=== PATIENT | female | born 1950 | race Caucasian/White ===

== ENCOUNTER 2017-12-18 06:00 | Outpatient (RCR) | payer MEDICARE, OTHER, SELFPAY | END 2017-12-19 23:59 | LOC: CR 06:00 | PROVIDERS: Family Provider Student in an Organized Health Care Education/Training Program; PCP Student in an Organized Health Care Education/Training Program; Visit Provider Student in an Organized Health Care Education/Training Program | DX: Z00.00 Encounter for general adult medical examination without abnormal findings (principal) ==

== ENCOUNTER 2018-01-15 06:00 | Outpatient (RCR) | payer MEDICARE, OTHER, SELFPAY | END 2018-01-16 23:59 | LOC: CR 06:00 | PROVIDERS: Family Provider Student in an Organized Health Care Education/Training Program; PCP Student in an Organized Health Care Education/Training Program; Visit Provider Student in an Organized Health Care Education/Training Program | DX: Z00.00 Encounter for general adult medical examination without abnormal findings (principal) ==

== ENCOUNTER → 2018-01-22 08:49 | Outpatient (CLI) | payer MEDICARE, OTHER, SELFPAY ==
[2018-01-22 09:51] LABS: AST(SGOT) 21 U/L (15-37); Alanine Aminotransfer ALT/SGPT 23 U/L (13-56); Albumin, Serum 3.6 g/dL (3.2-5.0); Alkaline Phosphatase 50 U/L (45-117); Bilirubin, Direct 0.11 mg/dL (0.00-0.30); Cholesterol 197 mg/dL (200); Globulin 3.5 g/dL (2.2-4.2); High Density Lipoprotein 58 mg/dL; Protein, Total 7.1 g/dL (6.4-8.2); Triglycerides 272 mg/dL; Very Low Density Lipoprotein 54 mg/dL (5-40)
== END ==
PROVIDERS: Family Provider Student in an Organized Health Care Education/Training Program; PCP Student in an Organized Health Care Education/Training Program; Visit Provider Internal Medicine Cardiovascular Disease
DX: I25.10 Atherosclerotic heart disease of native coronary artery without angina pectoris (principal); E78.5 Hyperlipidemia, unspecified
CPT/HCPCS: 36415; 80061; 80076

== ENCOUNTER → 2018-01-30 13:45 | Outpatient (CLI) | payer MEDICARE, OTHER, SELFPAY ==
--- NOTE | 2018-01-30 13:46 | ECHOD_ITS ---
Reason For Study: CAD/ASHD Procedure This was a 2D Doppler, Color Flow transthoracic echocardiogram. Exam performed in department. Left Ventricle Normal size and thickness. The estimated ejection fraction is 65 %. Stage 1 diastolic dysfunction. No regional wall motion abnormalities noted. Right Ventricle Normal size and thickness. Normal systolic function. Atria The left atrium is mildly enlarged. Normal right atrium. Normal atrial septum. Mitral Valve The mitral valve is structurally normal. No prolapse or stenosis seen. Mild mitral annular calcification extending into the posterior leaflet. Tricuspid Valve Normal tricuspid valve. Unable to estimate RV systolic pressure/pulmonary artery pressure due to technically difficult study. Aortic Valve Trisinus/trileaflet aortic valve. Mild focal aortic valve thickening. Pulmonic Valve Normal pulmonic valve. Great Vessels Normal aortic root. Normal arch. Normal inferior vena cava. Inferior vena cava collapse with sniff. Pericardium/Pleural No pericardial effusion. MMode/2D Measurements & Calculations LVIDd: 4.6 cm IVSd: 1.1 cm Ao root diam: 3.2 cm LVIDs: 3.2 cm LVPWd: 1.1 cm LA dimension: 4.8 cm FS: 30.2 % LAV(MOD-bp): 73.3 ml LA A4 area: 21.9 cm2 RA A4 area: 10.8 cm2 LAV(MOD-bp) Indexed: 38.3 ml/m2 LAV(MOD-sp2): 74.2 ml LAV(MOD-sp4): 71.3 ml Time Measurements MV dec time: 0.44 sec Doppler Measurements & Calculations MV E max izaiah: 56.1 cm/sec Lat Peak E' Izaiah: 10.5 cm/sec Med Peak E' Izaiah: 5.8 cm/sec MV A max izaiah: 110.5 cm/sec E/E' lat: 5.4 E/E' med: 9.7 MV E/A: 0.51 Ao V2 max: 170.6 cm/sec LV V1 max: 111.5 cm/sec PA V2 max: 114.6 cm/sec Ao max P.7 mmHg LV V1 max P.0 mmHg Interpretation Summary The estimated ejection fraction is 65 %. Stage 1 diastolic dysfunction. Unable to estimate RV systolic pressure/pulmonary artery pressure due to technically difficult study. The left atrium is mildly enlarged. There is no comparison study available. Ordering Physician: Brandon Ch Referring Physician: Rishi Vasquez Performed By: Joy Orellana, JAMAR, RVT
== END ==
PROVIDERS: Family Provider Student in an Organized Health Care Education/Training Program; PCP Student in an Organized Health Care Education/Training Program; Visit Provider Internal Medicine Cardiovascular Disease
DX: I25.10 Atherosclerotic heart disease of native coronary artery without angina pectoris (principal)
CPT/HCPCS: 93306

== ENCOUNTER 2018-02-14 06:00 | Outpatient (RCR) | payer MEDICARE, OTHER, SELFPAY | END 2018-02-16 23:59 | LOC: CR 06:00 | PROVIDERS: Family Provider Student in an Organized Health Care Education/Training Program; PCP Student in an Organized Health Care Education/Training Program; Visit Provider Student in an Organized Health Care Education/Training Program | DX: Z00.00 Encounter for general adult medical examination without abnormal findings (principal) ==

== ENCOUNTER 2018-03-14 06:00 | Outpatient (RCR) | payer SELFPAY | END 2018-03-18 23:59 | LOC: CR 06:00 | PROVIDERS: Family Provider Student in an Organized Health Care Education/Training Program; PCP Student in an Organized Health Care Education/Training Program; Visit Provider Student in an Organized Health Care Education/Training Program | DX: Z00.00 Encounter for general adult medical examination without abnormal findings (principal) ==

== ENCOUNTER 2018-04-18 06:00 | Outpatient (RCR) | payer SELFPAY | END 2018-04-18 23:59 | LOC: CR 06:00 | PROVIDERS: Family Provider Student in an Organized Health Care Education/Training Program; PCP Student in an Organized Health Care Education/Training Program; Visit Provider Student in an Organized Health Care Education/Training Program | DX: Z00.00 Encounter for general adult medical examination without abnormal findings (principal) ==

== ENCOUNTER 2018-05-16 06:00 | Outpatient (RCR) | payer SELFPAY | END 2018-05-18 23:59 | LOC: CR 06:00 | PROVIDERS: Family Provider Student in an Organized Health Care Education/Training Program; PCP Student in an Organized Health Care Education/Training Program; Visit Provider Student in an Organized Health Care Education/Training Program | DX: Z00.00 Encounter for general adult medical examination without abnormal findings (principal) ==

== ENCOUNTER 2018-06-18 06:00 | Outpatient (RCR) | payer SELFPAY | END 2018-06-18 23:59 | LOC: CR 06:00 | PROVIDERS: Family Provider Student in an Organized Health Care Education/Training Program; PCP Student in an Organized Health Care Education/Training Program; Visit Provider Student in an Organized Health Care Education/Training Program | DX: Z00.00 Encounter for general adult medical examination without abnormal findings (principal) ==

== ENCOUNTER → 2018-07-16 13:25 | Outpatient (CLI) | payer MEDICARE, OTHER, SELFPAY ==
[2018-07-16 16:47] LABS: Absolute Lymphocyte Count 1.03 X10^3/ul (0.83-4.51); Absolute Neutrophil Count 4.3 X10^3/uL (2.0-7.7); Basophil# 0.04 X10^3/uL; Basophil% 0.7 % (0-1); Eosinophil# 0.14 X10^3/uL; Eosinophils% 2.3 % (0-5); Hematocrit 33.7 % (37-47); Hemoglobin 11.1 g/dl (12.0-15.0); Lymphocyte # 1.03 X10^3/ul (4.0); Lymphocyte % 17.1 % (19-41); Mean Corp Hgb Conc 32.9 g/gl (32-36); Mean Corpuscular Hgb 30.8 pg (27.0-32.0); Mean Corpuscular Volume 93.6 fL (81-99); Mean Platelet Vol. 11.9 fl (6.2-12.0); Monocyte# 0.54 X10^3/uL; Neutrophil # 4.26 X10^3/uL (2.7-7.7); Neutrophil % 70.7 % (47-70); Platelet Count 181 K/mm3 (150-450); RBC Distribution Width CV 12.5 % (11.6-14.6); RBC Distribution Width SD 42.8 fl (35.1-43.9)
[2018-07-16 16:50] LABS: POSITIVE COUNT NO; POSITIVE DIFFERENTIAL NO; POSITIVE MORPHOLOGY NO
[2018-07-16 17:04] LABS: Erythrocyte Sedimentation Rate 44 mm/hr (0-30)
[2018-07-16 17:09] LABS: ALB/GLOB Ratio 0.9 RATIO (0.9-2.4); AST(SGOT) 14 U/L (15-37); Alanine Aminotransfer ALT/SGPT 19 U/L (13-56); Albumin, Serum 3.4 g/dL (3.2-5.0); Alkaline Phosphatase 44 U/L (45-117); Anion Gap 13 (5-15); BUN 69 mg/dL (7-18); BUN/Creat Ratio 48.3 RATIO (10-20); Calcium,Total 9.5 mg/dL (8.5-10.1); Chloride 108 mmol/L (98-107); Creatinine, Serum 1.43 mg/dL (0.55-1.02); EST Glomerular Filtration Rate 39 mL/min (>60); Est Glom Filt Rate - Afr Amer 47 mL/min (>60); Globulin 3.7 g/dL (2.2-4.2); Glucose 153 mg/dL (74-106); Potassium 3.8 mmol/L (3.5-5.1); Protein, Total 7.1 g/dL (6.4-8.2); Sodium Level 142 mmol/L (136-145)
== END ==
PROVIDERS: Family Provider Student in an Organized Health Care Education/Training Program; PCP Student in an Organized Health Care Education/Training Program; Visit Provider Podiatrist
DX: L03.90 Cellulitis, unspecified (principal)
CPT/HCPCS: 36415; 80053; 85025; 85652; 86140

== ENCOUNTER → 2018-07-16 18:05 | Outpatient (CLI) | payer MEDICARE, OTHER, SELFPAY ==
[2018-07-16 20:37] LABS: M R Staph aureus DNA By PCR Negative (Negative); Staph aureus DNA By PCR POSITIVE (Negative)
[2018-07-16 20:38] LABS: Probe Check PASS
== END ==
PROVIDERS: Family Provider Student in an Organized Health Care Education/Training Program; PCP Student in an Organized Health Care Education/Training Program; Visit Provider Podiatrist
DX: L97.509 Non-pressure chronic ulcer of other part of unspecified foot with unspecified severity (principal); L03.90 Cellulitis, unspecified
CPT/HCPCS: 36415; 80053; 85025; 85652; 86140; 87070; 87077; 87186; 87205; 87640

== ENCOUNTER 2018-07-18 06:00 | Outpatient (RCR) | payer SELFPAY | END 2018-07-19 23:59 | LOC: CR 06:00 | PROVIDERS: Family Provider Student in an Organized Health Care Education/Training Program; PCP Student in an Organized Health Care Education/Training Program; Visit Provider Student in an Organized Health Care Education/Training Program | DX: Z00.00 Encounter for general adult medical examination without abnormal findings (principal) ==

== ENCOUNTER → 2018-08-02 09:23 | Outpatient (CLI) | payer MEDICARE, OTHER, SELFPAY ==
--- NOTE | 2018-08-02 09:25 | STE_ITS ---
Reason For Study: CHEST PAIN Stress Results Protocol: Avinash Protocol Maximum Predicted HR: 154 bpm Target HR: 131 bpm% Max imum Predicted HR: 85 % DurationHeart Rate Stage (mm:ss) (bpm) BPDos e BASELINE 69 136/76 STAGE 1 3:00 85 153/8110.00 STAGE 2 3:00 12 7 137/8920.00 STAGE 3 1:13 13 1 128/6330.00 RECOVERY 75 128/56 Stress Duration: 7:13 mm:ss Maximum Stress HR: 131 bpm Baseline Echocardiogram Findings The estimated ejection fraction is 65 %. Stress Echo Wall motion Data Resting WMIntermediate WMStress WM Resting Wall Motion Wall Motion Stress No regional wall motion No regional wall motion abnormalities noted. abnormalities noted. EKG Data The baseline ECG displays normal sinus rhythm. The maximum heart rate attained was 137 beats per minute. This was 88% of maximum predicted heart rate. During dobutamine infusion, there were no ST or T wave changes noted to suggest ischemia. No clinical angina was noted. The patient was titrated from 10 mcg to a maximun of 30 mcg of dobutamine during the stress. Interpretation Summary The estimated ejection fraction is 65 %. The patient was titrated from 10 mcg to a maximun of 30 mcg of dobutamine during the stress. Normal, adequate, dobutamine echocardiogram. Negative for ischemia by EKG and echocardiographic criteria. No anginal symptoms noted. Rare PVC noted. Appropriate blood pressure response to dobutamine. Test terminated due to the attainment of target heart rate. No anginal symptoms noted. Final LVEF is 75%. Ordering Physician: Brandon Ch Referring Physician: Brandon Ch Performed By: Joy Orellana, KARTHIKEYANCS, RVT
== END ==
PROVIDERS: Family Provider Student in an Organized Health Care Education/Training Program; PCP Student in an Organized Health Care Education/Training Program; Visit Provider Internal Medicine Cardiovascular Disease
DX: I25.10 Atherosclerotic heart disease of native coronary artery without angina pectoris (principal); I73.9 Peripheral vascular disease, unspecified; E78.5 Hyperlipidemia, unspecified
CPT/HCPCS: 93017; 93350; J7030; A4216

== ENCOUNTER → 2018-08-13 12:49 | Outpatient (CLI) | payer MEDICARE, OTHER, SELFPAY ==
--- NOTE | 2018-08-17 16:44 | LEAS_ITS ---
Arterial Study - Arterial Study Arterial Study: This is a 68-year-old female with a history of diabetes mellitus, hypertension, hyperlipidemia, heart disease, and prior toe amputations. Suspecting the presence of atherosclerotic peripheral arterial occlusive disease, the patient was brought to the noninvasive vascular laboratory at this time for the purpose of bilateral noninvasive lower extremity arterial assessment. Doppler signal assessment was used to evaluate the pulses at ankle level bilaterally. The posterior tibial and dorsalis pedis pulses were biphasic bilaterally. Segmental limb pressures were obtained bilaterally. The right low thigh pressure was measured at 158 mmHg. The right calf pressure was measured at 119 mmHg. The right ankle pressure, as determined by posterior tibial pulse, was measured at 107 mmHg. The right ankle pressure, as determined by dorsalis pedis pulse, was measured at 120 mmHg. The right digital pressure was measured at 79 mmHg. The left low thigh pressure was measured at 151 mmHg. The left calf pressure was measured at 139 mmHg. The left ankle pressure, as determined by posterior tibial pulse, was measured at 196 mmHg. The left ankle pressure, as determined by dorsalis pedis pulse, was measured at 104 mmHg. The left digital pressure was measured at 64 mmHg. Pulse?volume recordings were obtained bilaterally and segmentally. Waveform amplitudes appeared to be satisfactory at all levels bilaterally, but for the left digital level, which was diminished. Resting ankle?brachial indices were calculated bilaterally. The resting right ankle?brachial index was calculated to be 0.84. The resting left ankle?brachial index was calculated to be 1.37. Digital?brachial indices were calculated bilaterally. The right digital- brachial index was calculated to be 0.55. The left digital-brachial index was calculated to be 0.45. Impression: Based upon the findings of this resting noninvasive lower extremity arterial study, there is evidence of mild arterial occlusive disease in the right lower extremity. There is evidence of moderate arterial occlusive disease in the left lower extremity. Biphasic waveforms were noted at ankle level bilaterally. The resting right ankle?brachial index is mildly diminished, as is the right digital-brachial index. On the left, the resting ankle?brachial index is normal, though the left digital-brachial index is moderately diminished. Therefore, there is evidence of moderate impairment of arterial flow at digital level in the left lower extremity. The arterial occlusive disease appears to be multi-segmental bilaterally.
== END ==
PROVIDERS: Family Provider Student in an Organized Health Care Education/Training Program; PCP Student in an Organized Health Care Education/Training Program; Visit Provider Podiatrist
DX: I73.9 Peripheral vascular disease, unspecified (principal); L97.509 Non-pressure chronic ulcer of other part of unspecified foot with unspecified severity
CPT/HCPCS: 93923

== ENCOUNTER 2018-08-15 06:00 | Outpatient (RCR) | payer SELFPAY | END 2018-08-18 23:59 | LOC: CR 06:00 | PROVIDERS: Family Provider Student in an Organized Health Care Education/Training Program; PCP Student in an Organized Health Care Education/Training Program; Visit Provider Student in an Organized Health Care Education/Training Program | DX: Z00.00 Encounter for general adult medical examination without abnormal findings (principal) | CPT/HCPCS: J2405 ==

== ENCOUNTER 2018-08-16 08:25 | Day surgery (SDC) | payer MEDICARE, OTHER, SELFPAY ==
[2018-08-16] VITALS (7 sets, daily range): BP systolic 108–131; BP diastolic 45–57; PULSE 49–64; RESP 12–16; TEMP 36.4–37.2; O2SAT 95–99; BMI 27.4
--- NOTE | 2018-08-16 | AMP_PTH ---
PATIENT: KIMBERLY NEWMAN LOC: [facility] – [place] U#:[id number] AGE/SX: 68/F ROOM: RE08/16/[address]: Dr. Meeta Yoo DPM : 1950 BED: DIS: 08/16/2018 SPEC #: [id number] RECD: 08/16/18 13:17 STATUS: DALJIT REFaustina #: [id number] MARIELLE: 08/16/18 00:[address]: Meeta Yoo DEPT: SURGICAL PATHOLOGY RECD BY: Toni Doe ENTERED: 08/16/18 13:19 SP TYPE: Amputation OTHR DR: Dr. Rishi Vasquez DO Tissues: A - Toe, NOS B - Bone of foot, NOS Procedures: Decalcification bone/plaque Special Stain Group I Surgery Specimen Level III Surgery Specimen Level IV AFB Stain (control) GMS Stain (control) HEADER OPERATION: Amputation toe, fourth metatarsal PRE-OP DIAGNOSIS: Ulcer, fourth toe left foot, osteomyelitis TISSUE SUBMITTED: A - Fourth toe left foot, B - Clearance fragment fourth toe MICROSCOPIC DIAGNOSIS A. Fourth toe left foot, amputation: Focal gangrenous ulceration and associated acute inflammation and abscess formation. Underlying bone with acute osteomyelitis. Special stains for acid fast bacilli and fungi are negative for organisms; matched controls are appropriate. B. Clearance fragment fourth toe: Pieces of bone with reactive changes, mild chronic inflammation and negative for acute osteomyelitis. IVETTE:bubba 08/22/18 MICROSCOPIC DESCRIPTION Slides are reviewed. GROSS DESCRIPTION A - Received in fixative is one container labeled with the patient's name and designated fourth toe left foot. The specimen consists of a portion of toe measuring 2.5 x 1.5 x 1.5 cm. The plantar surface of the toe shows an extensive area of gangrenous ulceration. Only a portion of nail is present. Job Foreman sections are submitted in two cassettes as follows: 1 - ulcerated area, 2 - bone underneath the ulcerated area after decalcification. B - Received in fixative is one container labeled with the patient's name and designated clearance fragment fourth toe. The specimen consists of two pieces of bone measuring 2 x 0.8 x 0.5 cm and 1.5 x 0.7 x 0.5 cm. The entire specimen is submitted in one cassette after decalcification. / IVETTE:bubba 08/16/18 TC:2 CPT: 80456, 10071, 77803 x2, 03743 x2
[2018-08-16 09:36] LABS: Bedside Glucose 142 mg/dL (70-110)
--- NOTE | 2018-08-16 10:00 | RAD_ITS ---
STUDY: X-RAY LEFT FOOT, 4TH TOE REASON FOR EXAM: Female, 68 years old. Left 4th toe amputation. TECHNIQUE: 3 view(s) of the toe were obtained. COMPARISON: None. FINDINGS: The majority of 5th metatarsal is absent. The head of the 5th metatarsal and the 5th toe are present. The 4th toe is agitated at the metatarsophalangeal joint. There is erosion of the head of the 1st metatarsal and the base of the proximal phalanx of the great toe. Generalized osteopenia. RAD/Toe(s) Min 2 Views IMPRESSION: Findings as above. Regarding the 1st digit metatarsophalangeal joint, this could reflect chronic joint space infection/osteomyelitis and this requires additional clinical correlation. Electronically Signed: Arie Cantor, at 18:11 EDT Tel , Service support ,
[2018-08-16] MEDS: Cefazolin 2 GM in 0.9% Normal Saline 100 ML IV (10:54)
[2018-08-16] MEDS: Bupivacaine Mpf 0.5% 30 ML VIAL (11:10)
--- NOTE | 2018-08-16 11:38 | DCINST_ITS ---
Discharge Diet: No Restrictions Discharge Activity: May not drive while taking narcotic pain medications. Weight Bearing Status: Partial weight bearing - heel weight bear with boot. use assistive device only if needed Keep extremity elevated above heart level: Left Leg Call your doctor if your incision/area has: Continuous Slow Oozing, Sudden Increased Bleeding, Increased Pain/ Swelling, Increased Redness, Foul Smelling Discharge, Swelling at the incision site Call your doctor if you observe: Fever of 101 or Higher, Calf discomfort, Uncontrolled pain Cleanse incision/area with: Keep Dressing Clean & Dry Allergies/Adverse Reactions: Allergies Sulfa (Sulfonamide Antibiotics) Allergy (Verified 08/16/18 09:10) Unknown doesn't remember/ allergy noted as a child Medications to take at Discharge Ascorbate Calcium [Vitamin C] 500 mg PO LUNCH 01/13/14 Aspirin E.C. [Ecotrin] 81 mg PO QHS 01/13/14 Gabapentin 300 mg PO TID 01/13/14 Lisinopril [Zestril] 40 mg PO DAILY 01/13/14 Multivitamins,Therapeutic [Multivitamin] 1 tab PO DAILY 01/13/14 Estradiol [Estrace Vaginal Cream] 1 dose VAGINAL SUTU 05/31/16 Simvastatin [Zocor] 40 mg PO QHS 05/31/16 Cranberry Fruit Extract [Cranberry] 500 mg PO DINNER 06/29/16 [place]-3 Fatty Acids/Fish Oil [Fish Oil 1,000 mg Capsule] 1 ea PO DAILY 06/29/16 Hydrochlorothiazide [Hctz] 25 mg PO DAILY 11/14/16 clopidogrel 75 mg tablet 75 mg PO DAILY #30 tab 12/06/17 metoprolol succinate ER 50 mg tablet,extended release 24 hr 50 mg PO DAILY #30 tab 12/06/17 amlodipine 5 mg tablet 5 mg PO DAILY tab 07/29/18 glimepiride 2 mg tablet 2 mg PO DAILY tab 07/29/18 metformin 500 mg tablet 500 mg PO DAILY tab 07/29/18 Ferrous Sulfate [Iron] 325 mg PO DAILY 08/15/18 Primary Care Physician: Rishi Vasquez DO [Primary Care Provider] - Test Results: Test results from this visit will be discussed in further detail at your follow- up appointment, if applicable. Please Follow Up With: Meeta Yoo DPM When: Sunday at [facility] [place]; [phone]. Call sooner if questions. Proposed Discharge Date: 08/16/18
--- NOTE | 2018-08-16 11:41 | PCM.IMDPSTOP ---
Problem List (1) Osteomyelitis Status: Acute (2) Chronic ulcer of left foot with necrosis of bone Status: Chronic (3) Diabetes mellitus with polyneuropathy Status: Chronic Qualifiers: (4) Hammer toe of left foot Status: Chronic Immediate Post-Op Note Date of Procedure: 08/16/18 - Company Pilot: Emilee Cain, PGY3. Surgeon: Meeta Yoo DPM Primary Surgeon/Physician: Meeta Yoo DPM carbon cutter: none Pre-Operative Diagnosis: chronic non healing ulcer left fourth toe. osteomyelitis. hammer toe, left fourth Post-Operative Diagnosis: chronic non healing ulcer left fourth toe. osteomyelitis. hammer toe, left fourth Surgery/Procedure Performed:: left fourth toe amputation Description of Surgical Findings:: see detailed operation report hemostasis controlled materials: 2-0 Vicryl and 3-0 nylon complications: none The patient tolerated the procedure and anesthesia well. She was transported to the PACU with vital signs stable and vascular status intact to the left lower extremity. Post operative xrays were reviewed. She will be discharged home upon continued stability and all postoperative orders were entered electronically. Estimated Blood Loss: <40 mL Specimen's removed: pathology: left fourth toe soft tissue and bone. Pathology: Clearance fragment proximal phalanx fourth toe. Microbiology: Clearance fragment proximal phalanx fourth toe (aerobic, anaerobic, acid-fast, fungal) Drains: none Type of Anesthesia:: Local MAC - Preoperative injection: 1-1 mixture of 1% lidocaine plain and 0.4% Marcaine plain administered in typical left fourth ray block fashion, 6 cc - Admit VTE Documentation VTE Present on Admission: No VTE Mechan Device Prophylaxis: SCD's VTE Pharm Prophylaxis ordered?: Yes
--- NOTE | 2018-08-16 15:07 | DCINST_ITS ---
Discharge Activity: May not drive while taking narcotic pain medications. Weight Bearing Status: Partial weight bearing - heel weight bear with boot. use assistive device only if needed Keep extremity elevated above heart level: Left Leg Call your doctor if your incision/area has: Continuous Slow Oozing, Sudden Increased Bleeding, Increased Pain/ Swelling, Increased Redness, Foul Smelling Discharge, Swelling at the incision site Call your doctor if you observe: Fever of 101 or Higher, Calf discomfort, Uncontrolled pain Cleanse incision/area with: Keep Dressing Clean & Dry Allergies/Adverse Reactions: Allergies Sulfa (Sulfonamide Antibiotics) Allergy (Verified 08/16/18 09:10) Unknown doesn't remember/ allergy noted as a child Medications to take at Discharge Ascorbate Calcium [Vitamin C] 500 mg PO LUNCH 01/13/14 Aspirin E.C. [Ecotrin] 81 mg PO QHS 01/13/14 Gabapentin 300 mg PO TID 01/13/14 Lisinopril [Zestril] 40 mg PO DAILY 01/13/14 Multivitamins,Therapeutic [Multivitamin] 1 tab PO DAILY 01/13/14 Estradiol [Estrace Vaginal Cream] 1 dose VAGINAL SUTU 05/31/16 Simvastatin [Zocor] 40 mg PO QHS 05/31/16 Cranberry Fruit Extract [Cranberry] 500 mg PO DINNER 06/29/16 [place]-3 Fatty Acids/Fish Oil [Fish Oil 1,000 mg Capsule] 1 ea PO DAILY 06/29/16 Hydrochlorothiazide [Hctz] 25 mg PO DAILY 11/14/16 clopidogrel 75 mg tablet 75 mg PO DAILY #30 tab 12/06/17 metoprolol succinate ER 50 mg tablet,extended release 24 hr 50 mg PO DAILY #30 tab 12/06/17 amlodipine 5 mg tablet 5 mg PO DAILY tab 07/29/18 glimepiride 2 mg tablet 2 mg PO DAILY tab 07/29/18 metformin 500 mg tablet 500 mg PO DAILY tab 07/29/18 Ferrous Sulfate [Iron] 325 mg PO DAILY 08/15/18 Primary Care Physician: Rishi Vasquez DO [Primary Care Provider] - Test Results: Test results from this visit will be discussed in further detail at your follow- up appointment, if applicable. Please Follow Up With: Meeta Yoo DPM When: Sunday at [facility] [place]; [phone]. Call sooner if questions. Proposed Discharge Date: 08/16/18
--- NOTE | 2018-08-16 15:13 | OP.PCM_ITS ---
Problem List (1) Osteomyelitis Status: Chronic Qualifiers: Osteomyelitis location: foot Laterality: left (2) Chronic ulcer of left foot with necrosis of bone Status: Chronic (3) Diabetes mellitus with polyneuropathy Status: Chronic Qualifiers: (4) Hammer toe of left foot Status: Chronic Report of Operation Date of Procedure: 08/16/18 - Smoking Tobacco Packing Machine Hand: Emilee Cain, PGY3. Surgeon: Meeta Yoo DPM Pre-Operative Diagnosis: chronic non healing ulcer left fourth toe. osteomyelitis. hammer toe, left fourth Post-Operative Diagnosis: chronic non healing ulcer left fourth toe. osteomyelitis. hammer toe, left fourth Surgery/Procedure Performed:: left fourth toe amputation Description of Surgical Findings:: Hemostasis: No tourniquet utilized, anatomic dissection performed materials: 2-0 Vicryl and 3-0 nylon complications: none chief client officer: none Type of Anesthesia:: Local MAC - Preoperative injection: 1-1 mixture of 1% lidocaine plain and 0.4% Marcaine plain administered in typical left fourth ray block fashion, 6 cc Specimen's removed: pathology: left fourth toe soft tissue and bone. Pathology: Clearance fragment proximal phalanx fourth toe. Microbiology: Clearance fragment proximal phalanx fourth toe (aerobic, anaerobic, acid-fast, fungal) Drains: none Estimated Blood Loss (mL): <40 mL Description of Procedure: Indications: This 68-year-old female with significant past medical history of diabetes with peripheral neuropathy, small vessel vascular disease, coronary artery disease, chronic kidney disease, hypertension, retinopathy, thyroid nodules continues to have non-healing of her left fourth toe ulcer with progressive deterioration of the skin envelope. Her toe is considered nonviable at this time. There is also a concern of underlying osteomyelitis. The x-rays of the left foot demonstrate osteolysis of the distal phalanx of the fourth toe and significant contraction. There is no acute fracture or dislocation or soft tissue emphysema or foreign body. She has failed conservative care including offloading, traditional wound care, local cellulitis and infection management, rest, diabetic control. She also had a recent updated noninvasive vascular study and will continue to follow-up with vascular surgeon. It is noted her toe brachial index on the left foot is 0.45 and her JEFFREY is 1.36. The preoperative indications, planned procedure, possible benefits, risks, anticipated healing time and management were discussed in detail with the patient. No guarantees were made. She understands complications and risks may include but are not limited to the following: Delayed or nonhealing, pain, scarring, infection, need for revisional surgery, allergy, blood clot, loss of limb, function, life, transfer lesion or new ulcer formation. I answered all of her questions. The surgical consent and the surgical limb were signed. Her preoperative history and physical exam completed by Dr. Rishi Vasquez including her clearance was reviewed in detail. The preoperative diagnostic data was also reviewed including echocardiogram with ejection fraction of 75%, sedimentation rate of 44, CBC without leukocytosis, evidence of anemia as noted, C-reactive protein of 14.6, creatinine 1.49, and no other gross abnormalities noted on the CMP. Procedure in detail: The patient was transferred to the operating room via cart and placed on the operating table in supine position. Final verification of the patient, surgery, and limb designation were performed via the timeout procedure. IV MAC sedation was initiated by the anesthesia team and local anesthetic was administered by the podiatry team. No tourniquet was utilized. Her lower extremity was bumped to allow good exposure. The left lower extremity was prepped and draped in the usual aseptic manner. Surgery began as a following: Attention was first directed to the left fourth toe in which a fishmouth incision was made to allow for removal of the devitalized ulcer with adjacent eschar and nonviable skin of the fourth toe. This was removed from the table and sent to pathology as noted. Next careful dissection was performed to disarticulate the fourth toe at the fourth metatarsal phalangeal joint level. A clearance fragment was obtained from the base of this bone and sent to both microbiology and pathology. He has noticed that there was no pulsatile bleeding at this time however there was capillary refill time to the resected areas and the tissue appeared to be healthy. There was no purulence, odor, streaking, discolored, or deterioration of the fourth metatarsal head. It was not deemed necessary to remove the fourth metatarsal head at this time. Saline irrigation was performed. Gentle no touch technique closure was used to reapproximate the surgical wound with 1 placement of a 2-0 Vicryl. Next the skin was gently reapproximated utilizing 3-0 nylon with simple suture technique. A postoperative dressing was applied with Betadine soaked Adaptic, gauze, Kerlix, and an Marino wrap applied in a noncompressive manner. A postoperative x-ray was obtained with the mini C arm demonstrating adequate resection of the entire fourth toe. No acute injuries or foreign bodies were identified. After procedure: The patient tolerated the procedure and anesthesia well. She was transported to the PACU with vital signs stable and vascular status intact to left lower extremity. She was advised to keep her dressing clean dry and intact until follow-up this upcoming Sunday at [facility]. She was advised to only put weight on her heel with her cam walker boot. She is advised to ice behind her knee if needed for pain. It is noted she has neuropathy and I do not anticipate a lot of pain with this procedure. Postoperative x-ray was reviewed. Her postoperative orders were entered electronically. Meeta Yoo DPM, [facility]
== END 2018-08-16 12:41 | disposition home or self-care (01) ==
LOC: SDC 08:25 → AC 08:26
PROVIDERS: Family Provider Student in an Organized Health Care Education/Training Program; PCP Student in an Organized Health Care Education/Training Program; Referring Provider Podiatrist; Visit Provider Podiatrist
PROC: (CPT 28820; principal; 2018-08-16 09:45)
DX: E11.42 Type 2 diabetes mellitus with diabetic polyneuropathy (principal); E11.69 Type 2 diabetes mellitus with other specified complication; M86.672 Other chronic osteomyelitis, left ankle and foot; M20.42 Other hammer toe(s) (acquired), left foot; L97.524 Non-pressure chronic ulcer of other part of left foot with necrosis of bone; I25.10 Atherosclerotic heart disease of native coronary artery without angina pectoris; I12.9 Hypertensive chronic kidney disease with stage 1 through stage 4 chronic kidney disease, or unspecified chronic kidney disease; E11.22 Type 2 diabetes mellitus with diabetic chronic kidney disease; E11.319 Type 2 diabetes mellitus with unspecified diabetic retinopathy without macular edema; N18.3 Chronic kidney disease, stage 3 (moderate); E11.51 Type 2 diabetes mellitus with diabetic peripheral angiopathy without gangrene; Z79.899 Other long term (current) drug therapy; Z79.82 Long term (current) use of aspirin; Z79.02 Long term (current) use of antithrombotics/antiplatelets; Z79.84 Long term (current) use of oral hypoglycemic drugs; Z87.891 Personal history of nicotine dependence
CPT/HCPCS: 28820; 73660; 76000; 82962; 87015; 87070; 87075; 87077; 87102; 87116; 87186; 87205; 87206; 88304; 88305; 88307; 88311; 88312; J7120; J2405

== ENCOUNTER 2018-09-17 06:00 | Outpatient (RCR) | payer SELFPAY | END 2018-09-18 23:59 | LOC: CR 06:00 | PROVIDERS: Family Provider Student in an Organized Health Care Education/Training Program; PCP Student in an Organized Health Care Education/Training Program; Referring Provider Student in an Organized Health Care Education/Training Program; Visit Provider Student in an Organized Health Care Education/Training Program | DX: Z00.00 Encounter for general adult medical examination without abnormal findings (principal) ==

== ENCOUNTER 2018-10-17 06:00 | Outpatient (RCR) | payer SELFPAY | END 2018-10-18 23:59 | LOC: CR 06:00 | PROVIDERS: Family Provider Student in an Organized Health Care Education/Training Program; PCP Student in an Organized Health Care Education/Training Program; Referring Provider Student in an Organized Health Care Education/Training Program; Visit Provider Student in an Organized Health Care Education/Training Program | DX: Z00.00 Encounter for general adult medical examination without abnormal findings (principal) ==

== ENCOUNTER 2018-11-07 06:00 | Outpatient (RCR) | payer SELFPAY ==
[2018-08-16 09:14] VITALS: BMI 27.4
== END 2018-11-18 23:59 ==
LOC: CR 06:00
PROVIDERS: Family Provider Student in an Organized Health Care Education/Training Program; PCP Student in an Organized Health Care Education/Training Program; Referring Provider Student in an Organized Health Care Education/Training Program; Visit Provider Student in an Organized Health Care Education/Training Program
DX: Z00.00 Encounter for general adult medical examination without abnormal findings (principal)

== ENCOUNTER 2018-12-19 06:00 | Outpatient (RCR) | payer SELFPAY ==
[2018-08-16 09:14] VITALS: BMI 27.4
== END 2018-12-19 23:59 ==
LOC: CR 06:00
PROVIDERS: Family Provider Student in an Organized Health Care Education/Training Program; PCP Student in an Organized Health Care Education/Training Program; Referring Provider Student in an Organized Health Care Education/Training Program; Visit Provider Student in an Organized Health Care Education/Training Program
DX: Z00.00 Encounter for general adult medical examination without abnormal findings (principal)

== ENCOUNTER 2019-01-16 06:00 | Outpatient (RCR) | payer SELFPAY ==
[2018-08-16 09:14] VITALS: BMI 27.4
== END 2019-01-16 23:59 ==
LOC: CR 06:00
PROVIDERS: Family Provider Student in an Organized Health Care Education/Training Program; PCP Student in an Organized Health Care Education/Training Program; Referring Provider Student in an Organized Health Care Education/Training Program; Visit Provider Student in an Organized Health Care Education/Training Program
DX: Z00.00 Encounter for general adult medical examination without abnormal findings (principal)

== ENCOUNTER → 2019-01-28 08:13 | Outpatient (CLI) | payer MEDICARE, OTHER, SELFPAY ==
[2019-01-27 11:50] VITALS: BMI 27.7
[2019-01-28 09:18] LABS: AST(SGOT) 20 U/L (15-37); Alanine Aminotransfer ALT/SGPT 25 U/L (13-56); Albumin, Serum 3.8 g/dL (3.2-5.0); Alkaline Phosphatase 46 U/L (45-117); Bilirubin, Direct 0.15 mg/dL (0.00-0.30); Cholesterol 183 mg/dL (200); Globulin 3.4 g/dL (2.2-4.2); High Density Lipoprotein 52 mg/dL; Protein, Total 7.2 g/dL (6.4-8.2); Triglycerides 272 mg/dL; Very Low Density Lipoprotein 54 mg/dL (5-40)
== END ==
PROVIDERS: Family Provider Student in an Organized Health Care Education/Training Program; PCP Student in an Organized Health Care Education/Training Program; Referring Provider Internal Medicine Cardiovascular Disease; Visit Provider Internal Medicine Cardiovascular Disease
DX: E78.5 Hyperlipidemia, unspecified (principal); I25.10 Atherosclerotic heart disease of native coronary artery without angina pectoris
CPT/HCPCS: 36415; 80061; 80076

== ENCOUNTER 2019-02-13 06:00 | Outpatient (RCR) | payer SELFPAY ==
[2018-08-16 09:14] VITALS: BMI 27.4
== END 2019-02-16 23:59 ==
LOC: CR 06:00
PROVIDERS: Family Provider Student in an Organized Health Care Education/Training Program; PCP Student in an Organized Health Care Education/Training Program; Referring Provider Student in an Organized Health Care Education/Training Program; Visit Provider Student in an Organized Health Care Education/Training Program
DX: Z00.00 Encounter for general adult medical examination without abnormal findings (principal)

== ENCOUNTER → 2019-02-28 | Outpatient (CLI) | payer MEDICARE, OTHER, SELFPAY ==
--- NOTE | 2019-02-28 | LES_PTH ---
PATIENT: KIMBERLY NEWMAN LOC: [facility] U#:[id number] AGE/SX: 68/F ROOM: RE02/28/[address]: Dr. Kwaku Moscoso MD : 1950 BED: DIS: 02/28/2019 SPEC #: [id number] RECD: 02/28/19 15:37 STATUS: DALJIT ARJUN #: [id number] MARIELLE: 02/28/19 00:[address]: Kwaku Moscoso DEPT: SURGICAL PATHOLOGY RECD BY: Toni Doe ENTERED: 03/03/19 13:07 SP TYPE: Lesion OTHR DR: MD Dr. Rishi Ramirez, DO Tissues: Skin of arm Procedures: Surgery Specimen Level IV HEADER OPERATION: Excision left arm mass PRE-OP DIAGNOSIS: Left arm mass TISSUE SUBMITTED: Left arm tissue MICROSCOPIC DIAGNOSIS Left arm mass, excision: Dermal calcified nodule with focal chronic inflammation and foreign body giant cell reaction. SJ:bubba 03/04/19 COMMENT The findings may represent dystrophic calcifications or calcinosis. Correlation with clinical findings and appropriate follow up are necessary. Case has been reviewed in consultation with Dr. Lee who concurs with the above diagnosis. IDC:AM MICROSCOPIC DESCRIPTION Slides are reviewed. GROSS DESCRIPTION Received in fixative is one container labeled with the patient's name and designated left arm. The specimen consists of a piece of skin with underlying tissue. The skin piece measures 2 x 0.5 cm. The underlying tissue measures 1.5 x 1 x 0.6 cm. The specimen is inked, bisected and submitted entirely in one cassette. / IVETTE:bubba 03/03/19 TC:5 CPT: 72217
[2019-02-28 15:18] VITALS: BMI 27.7
== END | disposition home or self-care (01) ==
LOC: LABSPEC 15:59
PROVIDERS: Family Provider Student in an Organized Health Care Education/Training Program; PCP Student in an Organized Health Care Education/Training Program; Referring Provider Surgery; Visit Provider Surgery
DX: R22.32 Localized swelling, mass and lump, left upper limb (principal)
CPT/HCPCS: 88305

== ENCOUNTER 2019-03-18 06:00 | Outpatient (RCR) | payer SELFPAY ==
[2019-02-11 08:36] VITALS: BMI 27.7
== END 2019-03-18 23:59 ==
LOC: CR 06:00
PROVIDERS: Family Provider Student in an Organized Health Care Education/Training Program; PCP Student in an Organized Health Care Education/Training Program; Referring Provider Student in an Organized Health Care Education/Training Program; Visit Provider Student in an Organized Health Care Education/Training Program
DX: Z00.00 Encounter for general adult medical examination without abnormal findings (principal)

== ENCOUNTER 2019-04-17 06:00 | Outpatient (RCR) | payer SELFPAY ==
[2019-02-28 15:18] VITALS: BMI 27.7
== END 2019-04-18 23:59 ==
LOC: CR 06:00
PROVIDERS: Family Provider Student in an Organized Health Care Education/Training Program; PCP Student in an Organized Health Care Education/Training Program; Referring Provider Student in an Organized Health Care Education/Training Program; Visit Provider Student in an Organized Health Care Education/Training Program
DX: Z00.00 Encounter for general adult medical examination without abnormal findings (principal)

== ENCOUNTER 2019-05-15 06:00 | Outpatient (RCR) | payer SELFPAY ==
[2019-02-28 15:18] VITALS: BMI 27.7
== END 2019-05-18 23:59 ==
LOC: CR 06:00
PROVIDERS: Family Provider Student in an Organized Health Care Education/Training Program; PCP Student in an Organized Health Care Education/Training Program; Referring Provider Student in an Organized Health Care Education/Training Program; Visit Provider Student in an Organized Health Care Education/Training Program
DX: Z00.00 Encounter for general adult medical examination without abnormal findings (principal)

== ENCOUNTER 2019-06-17 06:00 | Outpatient (RCR) | payer SELFPAY ==
[2019-02-28 15:18] VITALS: BMI 27.7
== END 2019-06-18 23:59 ==
LOC: CR 06:00
PROVIDERS: Family Provider Student in an Organized Health Care Education/Training Program; PCP Student in an Organized Health Care Education/Training Program; Referring Provider Student in an Organized Health Care Education/Training Program; Visit Provider Student in an Organized Health Care Education/Training Program
DX: Z00.00 Encounter for general adult medical examination without abnormal findings (principal)

== ENCOUNTER 2019-07-17 06:00 | Outpatient (RCR) | payer SELFPAY ==
[2019-02-28 15:18] VITALS: BMI 27.7
== END 2019-07-19 23:59 ==
LOC: CR 06:00
PROVIDERS: Family Provider Student in an Organized Health Care Education/Training Program; PCP Student in an Organized Health Care Education/Training Program; Referring Provider Student in an Organized Health Care Education/Training Program; Visit Provider Student in an Organized Health Care Education/Training Program
DX: Z00.00 Encounter for general adult medical examination without abnormal findings (principal)

== ENCOUNTER 2019-08-14 06:00 | Outpatient (RCR) | payer SELFPAY ==
[2019-02-28 15:18] VITALS: BMI 27.7
== END 2019-08-18 23:59 ==
LOC: CR 06:00
PROVIDERS: Family Provider Student in an Organized Health Care Education/Training Program; PCP Student in an Organized Health Care Education/Training Program; Referring Provider Student in an Organized Health Care Education/Training Program; Visit Provider Student in an Organized Health Care Education/Training Program
DX: Z00.00 Encounter for general adult medical examination without abnormal findings (principal)

== ENCOUNTER 2019-09-18 06:00 | Outpatient (RCR) | payer SELFPAY ==
[2019-02-28 15:18] VITALS: BMI 27.7
== END 2019-09-18 23:59 ==
LOC: CR 06:00
PROVIDERS: Family Provider Student in an Organized Health Care Education/Training Program; PCP Student in an Organized Health Care Education/Training Program; Referring Provider Student in an Organized Health Care Education/Training Program; Visit Provider Student in an Organized Health Care Education/Training Program
DX: Z00.00 Encounter for general adult medical examination without abnormal findings (principal)

== ENCOUNTER 2019-10-14 06:00 | Outpatient (RCR) | payer SELFPAY ==
[2019-02-28 15:18] VITALS: BMI 27.7
== END 2019-10-18 23:59 ==
LOC: CR 06:00
PROVIDERS: Family Provider Student in an Organized Health Care Education/Training Program; PCP Student in an Organized Health Care Education/Training Program; Referring Provider Student in an Organized Health Care Education/Training Program; Visit Provider Student in an Organized Health Care Education/Training Program
DX: Z00.00 Encounter for general adult medical examination without abnormal findings (principal)

== ENCOUNTER 2019-11-18 06:00 | Outpatient (RCR) | payer SELFPAY ==
[2019-09-26 14:35] VITALS: BMI 26.8
== END 2019-11-18 23:59 ==
LOC: CR 06:00
PROVIDERS: Family Provider Student in an Organized Health Care Education/Training Program; PCP Student in an Organized Health Care Education/Training Program; Referring Provider Student in an Organized Health Care Education/Training Program; Visit Provider Student in an Organized Health Care Education/Training Program
DX: Z00.00 Encounter for general adult medical examination without abnormal findings (principal)

== ENCOUNTER 2019-12-18 06:00 | Outpatient (RCR) | payer SELFPAY ==
[2019-09-26 14:35] VITALS: BMI 26.8
== END 2019-12-19 23:59 ==
LOC: CR 06:00
PROVIDERS: Family Provider Student in an Organized Health Care Education/Training Program; PCP Student in an Organized Health Care Education/Training Program; Referring Provider Student in an Organized Health Care Education/Training Program; Visit Provider Student in an Organized Health Care Education/Training Program
DX: Z00.00 Encounter for general adult medical examination without abnormal findings (principal)

== ENCOUNTER 2020-01-15 06:00 | Outpatient (RCR) | payer SELFPAY ==
[2019-09-26 14:35] VITALS: BMI 26.8
== END 2020-01-17 23:59 ==
LOC: CR 06:00
PROVIDERS: Family Provider Student in an Organized Health Care Education/Training Program; PCP Student in an Organized Health Care Education/Training Program; Referring Provider Student in an Organized Health Care Education/Training Program; Visit Provider Student in an Organized Health Care Education/Training Program
DX: Z00.00 Encounter for general adult medical examination without abnormal findings (principal)

== ENCOUNTER 2020-02-05 06:00 | Outpatient (RCR) | payer SELFPAY ==
[2019-09-26 14:35] VITALS: BMI 26.8
== END 2020-02-17 23:59 ==
LOC: CR 06:00
PROVIDERS: Family Provider Student in an Organized Health Care Education/Training Program; PCP Student in an Organized Health Care Education/Training Program; Referring Provider Student in an Organized Health Care Education/Training Program; Visit Provider Student in an Organized Health Care Education/Training Program
DX: Z00.00 Encounter for general adult medical examination without abnormal findings (principal)

== ENCOUNTER → 2020-04-08 10:41 | Outpatient (CLI) | payer MEDICARE, OTHER, SELFPAY ==
[2019-09-26 14:35] VITALS: BMI 26.8
[2020-04-08 11:17] LABS: Absolute Lymphocyte Count 0.89 X10^3/uL (0.83-4.51); Absolute Neutrophil Count 8.5 X10^3/uL (2.0-7.7); Basophil# 0.06 X10^3/uL; Basophil% 0.6 % (0-1); Eosinophil# 0.08 X10^3/uL; Eosinophils% 0.8 % (0-5); Hematocrit 34.3 % (37-47); Hemoglobin 11.4 g/dL (12.0-15.0); Lymphocyte # 0.89 X10^3/ul (4.0); Lymphocyte % 8.5 % (19-41); Mean Corp Hgb Conc 33.2 g/dL (32-36); Mean Corpuscular Hgb 31.1 pg (27.0-32.0); Mean Corpuscular Volume 93.7 fL (81-99); Mean Platelet Vol. 11.6 fl (6.2-12.0); Monocyte# 0.82 X10^3/uL; Monocyte% 7.9 % (0-10); NRBC Flagged by Analyzer 0 % (0-5); Neutrophil # 8.53 X10^3/uL (2.7-7.7); Neutrophil % 81.9 % (47-70); Platelet Count 157 K/mm3 (150-450); RBC Distribution Width CV 12.7 % (11.6-14.6); RBC Distribution Width SD 43.7 fl (35.1-43.9); Red Blood Count 3.66 M/mm3 (4.2-5.4); White Blood Count 10.4 K/mm3 (4.4-11.0)
[2020-04-08 11:35] LABS: Hemoglobin A1c 6.1 % (3.8-5.6)
[2020-04-08 12:00] LABS: AST(SGOT) 15 U/L (15-37); Alanine Aminotransfer ALT/SGPT 21 U/L (13-56); Albumin, Serum 3.5 g/dL (3.2-5.0); Alkaline Phosphatase 67 U/L (45-117); Anion Gap 10 (5-15); BUN 72 mg/dL (7-18); BUN/Creat Ratio 42.4 RATIO (10-20); Calcium,Total 9.3 mg/dL (8.5-10.1); Chloride 107 mmol/L (98-107); EST Glomerular Filtration Rate 32 mL/min (>60); Est Glom Filt Rate - Afr Amer 38 mL/min (>60); Globulin 3.4 g/dL (2.2-4.2); Glucose 175 mg/dL (74-106); Potassium 4.6 mmol/L (3.5-5.1); Protein, Total 6.9 g/dL (6.4-8.2); Sodium Level 139 mmol/L (136-145)
[2020-04-08 12:06] LABS: Erythrocyte Sedimentation Rate 19 mm/hr (0-30)
[2020-04-08 19:07] LABS: M R Staph aureus DNA By PCR POSITIVE (Negative); Probe Check PASS; Staph aureus DNA By PCR POSITIVE (Negative)
== END ==
PROVIDERS: PCP Student in an Organized Health Care Education/Training Program; Referring Provider Podiatrist; Visit Provider Podiatrist
DX: E11.42 Type 2 diabetes mellitus with diabetic polyneuropathy (principal); L03.116 Cellulitis of left lower limb
CPT/HCPCS: 36415; 80053; 83036; 85025; 85652; 86140; 87070; 87075; 87077; 87186; 87205; 87640

== ENCOUNTER 2020-04-15 06:00 | Outpatient (RCR) | payer SELFPAY ==
[2019-09-26 14:35] VITALS: BMI 26.8
== END 2020-04-18 23:59 ==
LOC: CR 06:00
PROVIDERS: Family Provider Student in an Organized Health Care Education/Training Program; PCP Student in an Organized Health Care Education/Training Program; Referring Provider Student in an Organized Health Care Education/Training Program; Visit Provider Student in an Organized Health Care Education/Training Program
DX: Z00.00 Encounter for general adult medical examination without abnormal findings (principal)

== ENCOUNTER → 2020-04-29 07:58 | Outpatient (CLI) | payer MEDICARE, OTHER, SELFPAY ==
[2020-04-28 11:47] VITALS: BMI 26.8
[2020-04-29 08:42] LABS: AST(SGOT) 20 U/L (15-37); Alanine Aminotransfer ALT/SGPT 25 U/L (13-56); Albumin, Serum 3.4 g/dL (3.2-5.0); Alkaline Phosphatase 67 U/L (45-117); Bilirubin, Direct 0.12 mg/dL (0.00-0.30); Cholesterol 186 mg/dL (200); Globulin 3.7 g/dL (2.2-4.2); High Density Lipoprotein 58 mg/dL; Protein, Total 7.1 g/dL (6.4-8.2); Triglycerides 200 mg/dL; Very Low Density Lipoprotein 40 mg/dL (5-40)
== END ==
PROVIDERS: PCP Student in an Organized Health Care Education/Training Program; Referring Provider Internal Medicine Cardiovascular Disease; Visit Provider Internal Medicine Cardiovascular Disease
DX: I25.10 Atherosclerotic heart disease of native coronary artery without angina pectoris (principal); E78.5 Hyperlipidemia, unspecified
CPT/HCPCS: 36415; 80061; 80076

== ENCOUNTER 2020-05-14 14:00 | Outpatient (RCR) | payer MEDICARE, OTHER, SELFPAY ==
[2019-09-26 14:35] VITALS: BMI 26.8
[2020-04-21 14:55] VITALS: BP 151/68; PULSE 51; RESP 18; TEMP 36.8; BMI 26.8
--- NOTE | 2020-04-21 15:35 | PCM.WC.HP ---
(1) Chronic ulcer of left foot with necrosis of bone Status: Chronic Current Visit: Yes Code(s): L97.524 - 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 foot with necrosis of bone Comment: lateral and plantar third toe (2) Peripheral vascular occlusive disease Status: Chronic Current Visit: Yes Code(s): I73.9 - Peripheral vascular disease, unspecified Comment: ENDODONTICS DENTIST-Right SFA and Popliteal Artery 2012 ENDODONTICS DENTIST-Left SFA 2012 (3) Methicillin resistant Staphylococcus aureus infection Status: Chronic Current Visit: Yes Code(s): A49.02 - Methicillin resistant Staphylococcus aureus infection, unspecified site Comment: A49.02 (4) Diabetes mellitus with polyneuropathy Status: Chronic Current Visit: Yes Qualifiers: Diabetes mellitus type: type 2 Qualified Code(s): E11.42 - Type 2 diabetes mellitus with diabetic polyneuropathy Code(s): E11.42 - Type 2 diabetes mellitus with diabetic polyneuropathy (5) Osteomyelitis of foot Status: Chronic Current Visit: Yes Code(s): M86.9 - Osteomyelitis, unspecified (6) Chronic ulcer of left foot with fat layer exposed Status: Acute Current Visit: Yes Code(s): L97.522 - 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 foot with fat layer exposed Comment: lateral second toe History of Present Illness Date of Service: 04/21/20 Chief Complaint: Left third and second toes History of Wound: She returns to clinic today for new or ulcers to the left third and second toes. She was referred from the foot and ankle center. She denies pain, drainage, fever, chills, nausea, vomiting. She has been ulcer free for over 2 years. She has a long history of recurrent ulcers, partial toe amputations, comprehensive wound healing management, osteomyelitis treatment with recurrence, and even hyperbaric oxygen therapy sessions. Her ulcer is previously been cultured and was positive for MRSA and she continues on doxycycline. She is scheduled see infectious disease specialist today. Past Medical History Past Medical History: Chronic Problems (Last Reviewed 04/22/20 @ 09:22 by Aileen Sharp) Osteomyelitis (Chronic) Hammer toe of left foot (Chronic) Chronic kidney disease, stage 3 (Chronic) Atherosclerosis of coronary artery of [place] heart without angina pectoris (Chronic) Hyperlipidemia (Chronic) Peripheral vascular occlusive disease (Chronic) ENDODONTICS DENTIST-Right SFA and Popliteal Artery 2013 ENDODONTICS DENTIST-Left SFA 2012 Hypertension (Chronic) Methicillin resistant Staphylococcus aureus infection (Chronic) A49.02 Chronic ulcer of left foot with necrosis of bone (Chronic) lateral and plantar third toe Diabetes mellitus with polyneuropathy (Chronic) Osteomyelitis of foot (Chronic) Malnutrition (Chronic) Delayed wound healing (Chronic) Healed ulcer of left foot on examination (Chronic) Hallux valgus (acquired), right foot (Chronic) Hammer toe of second toe of left foot (Chronic) Chronic osteomyelitis of left foot (Chronic) M86.672 chronic osteomyelitis left medial foot at metatarsal head big toe chronic osteomyelitis left lateral foot at metatarsal head small toe with extension onto dorsum of foot Non-healing ulcer of right foot (Chronic) L97.519 nonhealing diabetic ulcer dorsum right foot by big toe DM2 (diabetes mellitus, type 2) (Chronic) Surgical History: angioplasty - twice in the right leg and once in the left leg in 2012, cataract, total knee arthroplasty - left knee., - - right small toe amputation. Incision and drainage and excisional debridement nonhealing infected diabetic ulcer left medial foot by metatarsal head big toe with partial ostectomy metatarsal head big toe for osteomyelitis - 07/11/16. Incision and drainage and excisional debridement infected diabetic ulcer abscess left lateral foot at metatarsal head small toe with extension onto dorsum of foot and partial ostectomy left lateral foot at metatarsal head small toe for osteomyelitis and partial ostectomy proximal aspect proximal phalanx left small toe for osteomyelitis and excisional debridement infected diabetic ulcer medial left small toe with removal of nail complex - 09/01/16. Allergies/Adverse Reactions: Allergies Sulfa (Sulfonamide Antibiotics) Allergy (Verified 09/11/19 15:38) Unknown doesn't remember/ allergy noted as a child Home Medications: Ambulatory Orders Medication Instructions Recorded Ascorbate Calcium [Vitamin C] 500 mg PO LUNCH 01/13/14 Aspirin E.C. [Ecotrin] 81 mg PO QHS 01/13/14 Gabapentin 300 mg PO TID 01/13/14 Lisinopril [Zestril] 40 mg PO DAILY 01/13/14 Multivitamins,Therapeutic 1 tab PO DAILY 01/13/14 [Multivitamin] Estradiol [Estrace Vaginal Cream] 1 dose VAGINAL SUTU 05/31/16 Simvastatin [Zocor] 40 mg PO QHS 05/31/16 Cranberry Fruit Extract [Cranberry] 500 mg PO DINNER 06/29/16 [place]-3 Fatty Acids/Fish Oil [Fish 1 ea PO DAILY 06/29/16 Oil 1,000 mg Capsule] Hydrochlorothiazide [Hctz] 25 mg PO DAILY 11/14/16 glimepiride 2 mg tablet 2 mg PO DAILY tab 07/29/18 metformin 500 mg tablet 500 mg PO DAILY tab 07/29/18 Ferrous Sulfate [Iron] 325 mg PO DAILY 08/15/18 cephalexin 500 mg tablet 500 mg PO Q6H tab 02/28/19 clopidogrel 75 mg tablet 75 mg PO DAILY #30 tab 11/26/19 amlodipine 10 mg tablet 10 mg PO DAILY #90 tab 02/02/20 metoprolol succinate 50 mg 50 mg PO DAILY #90 tab 02/24/20 tablet,extended release 24 hr - Family History Maternal Family History: Family History (Last Reviewed 04/22/20 @ 09:22 by Aileen Sharp) Father CAD (coronary artery disease) Diabetes, Heart Disease, Hypertension Paternal Family History: Family History (Last Reviewed 04/22/20 @ 09:22 by Aileen Sharp) Father CAD (coronary artery disease) Heart Disease Sibling Family History: Family History (Last Reviewed 04/22/20 @ 09:22 by Aileen Sharp) Father CAD (coronary artery disease) Heart Disease Smoking Status: Former smoker Review of Systems Constitutional: Denies: Chills, Fever, Fatigue Cardiovascular: Denies: Chest Pain, Claudication Respiratory: Denies: Cough, Shortness of Breath Gastrointestinal: Denies: Nausea, Vomiting Musculoskeletal: Denies: Foot Pain, Leg Pain Skin: Reports: Skin Changes, Wounds Neurological: Denies: Numbness, Tingling - Physical Exam Vital Signs Temp Pulse Resp BP 98.3 F 51 L 18 151/68 H 04/21/20 14:55 04/21/20 14:55 04/21/20 14:55 04/21/20 14:55 General: Alert, Oriented x3, Cooperative, No apparent distress HEENT: Atraumatic Extremities: No cyanosis, Capillary Refill Less than 3 Seconds, No Calf Tenderness, Diminished Peripheral Pulses, Edema Skin: Ulcer/ Wound - There is resolved purulence on expression as compared to last week. There is still deep probing to the lateral aspect of the third toe on the left foot down to bone and joint. There is reduced third toe inflammation since she has been on antibiotics and thick granular and fibrous base ulcer is on the dorsal lateral aspect of this toe. There is also a small skin discontinuity to the lateral aspect of the second toe without purulence or necrosis. It is noted the second and third toe abut. The adjacent skin is hairless and atrophic. Wound Measurements and Assessment WC - Nurse 1 - General Ulcer Measurement Start: 04/21/20 14:18 Freq: Status: Active Protocol: Activity Type Activity Date Activity User E-Sign Co-Sign Detail Recorded Client Recorded Date Recorded By Document 04/21/20 14:55 RB [id number] 04/21/20 15:06 RB 04/21/20 14:55 Wound Center Nurse 1 [Ulcer Assessment] 7. L foot 3rd toe lateral -Combined with other wound No -Current Size (cm) - Length 0.5 -Current Size (cm) - Width 0.4 -Current Size (cm) - Depth 0.5 -Total Square Cm 0.20 -Photo Taken Yes -Tunneling No -Undermining/Tunneling No -Circular Undermining No -Exudate Amt Small -Exudate Type Serosanguineous -Wound Margin Flat & Intact -Granulation Amt Medium (34-66%) -Granulation Quality [place],Red -Slough/Fibrin Yes -Necrosis Amt Small (1-33%) -Necrotic Tissue Type Adherent Slough -Structure Exposed N/A -Texture (Angelica-wound Skin Appearance) Assessed -Moisture (Angelica-wound Skin Appearance Assessed ) -Color (Angelica-wound Skin Appearance) Erythema -Temperature (Angelica-wound Skin No Abnormality Appearance) (Pt Warm) -Tenderness on Palpation (Angelica-wound No Skin Appearance) -Ulcer Cleansing Wound Cleanser -Foul Odor after Cleansing No -Anesthetic Used 4% Lidocaine Solution [Edema Assessment] -Lower Limb Edema Present Yes -Right Calf (cm) 31.5 -Right Ankle (cm) 20 -Left Calf (cm) 31 -Left Ankle (cm) 20 Musculoskeletal: No Tenderness to Palpation of Joints or Extremities, Muscle Wasting, - - Partial and full toe amputations noted on the left foot Neurological: - - Lack of epicritic sensation light touch is consistent with neuropathy status Psych/Mental Status: Normal Affect, Appropriate Debridement Note Wound debrided: third toe Laterality: Left Wound Grade/Stage: grade 3 Type of Debridement: Excisional debridement Anesthesia Used: 5% Lidocaine Gel Depth: in the subcutaneous layer Percentage of wound debrided: 100 Instrument Used: #15 blade Tissue Removed: fibrous, devitalized subcutaneous, biofilm, slough Severity: Fat Layer Exposed Amount of bleeding with debridement: Mild Bleeding Controlled with: Pressure Patient tolerated procedure well - Additional Wound Wound debrided: lateral 2nd toe Laterality: Left Wound Grade/Stage: grade 1 Type of Debridement: Excisional debridement Anesthesia Used: 5% Lidocaine Gel Depth: in the subcutaneous layer Percentage of wound debrided: 100 Instrument Used: #15 blade Tissue Removed: fibrous, devitalized subcutaneous, biofilm, slough Severity: Fat Layer Exposed Amount of bleeding with debridement: Mild Bleeding Controlled with: Pressure Patient tolerated procedure: Patient tolerated procedure well Assessment/Plan Active Problems (Last Reviewed 04/22/20 @ 09:22 by Aileen Sharp) Chronic ulcer of left foot with fat layer exposed (Acute) lateral second toe Peripheral vascular occlusive disease (Chronic) ENDODONTICS DENTIST-Right SFA and Popliteal Artery 2012 ENDODONTICS DENTIST-Left SFA 2013 Methicillin resistant Staphylococcus aureus infection (Chronic) A49.02 Chronic ulcer of left foot with necrosis of bone (Chronic) lateral and plantar third toe Diabetes mellitus with polyneuropathy (Chronic) Osteomyelitis of foot (Chronic) Assessment: Left third toe ulcer with osteomyelitis, grade 3. Left second toe ulcer, grade 1, no infection. Left fourth and fifth toe amputations. Left Hammer toe deformities. Peripheral arterial disease. Former smoker. Diabetes mellitus with neuropathy. History of MRSA. Plan: I reviewed and discussed her case. Debridement was performed as noted in the clinical panel. She was advised to change the dressing daily with Aquacel Ag. Her prior MRSA positive cultures were reviewed and I recommend she continues on doxycycline. She was seen by infectious disease specialist today and a consultation is appreciated. He recommended an extended course of oral doxycycline and adjusted the dosing. I also offered her surgical versus nonsurgical options to treat osteomyelitis. She will consider hyperbaric oxygen therapy in combination with her comprehensive wound healing plan versus additional toe amputations. I also recommended and offered a transmetatarsal amputation given that she has had multiple toe surgeries and amputations every couple of years. She refuses this option at this time. Her updated x-rays were obtained at the foot and ankle center which demonstrated osteolysis of the third toe adjacent to the ulcer site and also similar findings to some of the other distal toes of that foot. But given her recent anteriorization, probe to bone and recent purulence this is consistent with osteomyelitis. There were no acute fractures dislocations, foreign body, or soft tissue emphysema. Her labs are reviewed from 04-08-2020 with a white blood cell count of 10.4, ESR of 19, and C-reactive protein of 47.6. [place] be followed as she is treated for her current infection and ulcer status. Her hemoglobin A1c was 6.1%. To continue strict offloading with cam walker use. She relates is causing a limb length discrepancy and I recommended the use of an even up for the contralateral limb to prevent lower extremity limb discrepancy or pain. To return to the wound healing center 1 week or call sooner if she has any questions or concerns. I answered all her questions.
--- NOTE | 2020-04-22 08:07 | RAD_ITS ---
STUDY: X-RAY CHEST REASON FOR EXAM: Female, 70 years old. Pre hyperbaric oxygen therapy for non healing wound on toe -- no chest complaints TECHNIQUE: PA and lateral views of the chest. COMPARISON: Comparison is made with prior examination dated September 05, 2016. FINDINGS: Hyperinflation. The lungs are clear and expanded. There is no demonstrated pleural abnormality. Normal size heart. Normal mediastinum and darrion. There is prominence of the pulmonary hilar arteries without peripheral pulmonary vascular congestion, suggesting pulmonary hypertension. There is atherosclerotic calcification of the aortic arch with tortuosity. There are degenerative changes of the visualized thoracic spine. Metallic anchors are seen overlying the left humeral head most likely secondary to prior rotator cuff surgery. There is no demonstrated abnormality of the visualized soft tissue structures of the upper abdomen. RAD/Chest PA and Lateral IMPRESSION: Hyperinflation. Electronically Signed: Kalpesh Hernandez, at 9:15 EDT , Service support ,
--- NOTE | 2020-04-22 08:19 | EKG12_ITS ---
Test Reason : PRE-HBO Blood Pressure : / mmHG Vent. Rate : 046 BPM Atrial Rate : 046 BPM P-R Int : 154 ms QRS Dur : 098 ms QT Int : 466 ms P-R-T Axes : 049 -26 043 degrees QTc Int : 407 ms Sinus bradycardia Leftward axis Confirmed by GABRIEL LUNDBERG, CHLOE ([id number]), story editor OLMAN HUERTA ([id number]) on 04/23/2020 9:14:55 AM Referred By: Meeta Yoo Confirmed By:CHLOE RIOS MD
[2020-04-28 11:47] VITALS: BP 158/42; PULSE 49; RESP 16; TEMP 36.8; BMI 26.8
--- NOTE | 2020-04-28 14:55 | PN.PCM_ITS ---
(1) Chronic ulcer of left foot with necrosis of bone Status: Chronic Code(s): L97.524 - 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 foot with necrosis of bone Comment: lateral and plantar third toe (2) Peripheral vascular occlusive disease Status: Chronic Code(s): I73.9 - Peripheral vascular disease, unspecified Comment: TOP COATER-Right SFA and Popliteal Artery 2012 TOP COATER-Left SFA 2012 (3) Methicillin resistant Staphylococcus aureus infection Status: Chronic Code(s): A49.02 - Methicillin resistant Staphylococcus aureus infection, unspecified site Comment: A49.02 (4) Diabetes mellitus with polyneuropathy Status: Chronic Qualifiers: Diabetes mellitus type: type 2 Qualified Code(s): E11.42 - Type 2 diabetes mellitus with diabetic polyneuropathy Code(s): E11.42 - Type 2 diabetes mellitus with diabetic polyneuropathy (5) Osteomyelitis of foot Status: Chronic Code(s): M86.9 - Osteomyelitis, unspecified (6) Chronic ulcer of left foot with fat layer exposed Status: Acute Code(s): L97.522 - 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 foot with fat layer exposed Comment: lateral second toe (7) Toe deformity Status: Acute Qualifiers: Laterality: left Qualified Code(s): M20.62 - Acquired deformities of toe(s), unspecified, left foot Code(s): M20.60 - Acquired deformities of toe(s), unspecified, unspecified foot Type of Wound Date of Service: 04/28/20 Chief Complaint: Left third and second toes History of Wound: She returns to clinic today for ulcers to the left third and second toes. She denies pain, drainage, fever, chills, nausea, vomiting. She has a long history of recurrent ulcers, partial toe amputations, comprehensive wound healing management, osteomyelitis treatment with recurrence, and even hyperbaric oxygen therapy sessions. Her ulcer is previously been cultured and was positive for MRSA and she continues on doxycycline. She is also under the care of an infectious disease specialist. Progress of Wound: Stabilizing - Physical Exam Vital Signs Temp Pulse Resp BP 98.3 F 49 L 16 158/42 H 04/28/20 11:47 04/28/20 11:47 04/28/20 11:47 04/28/20 11:47 General: Alert, Oriented x3, Cooperative, No apparent distress HEENT: Atraumatic Extremities: No cyanosis, Capillary Refill Less than 3 Seconds, No Calf Tenderness, Diminished Peripheral Pulses, Edema Skin: Ulcer/ Wound - No purulence, erythema, streaking, odor, infection. Adjacent skin is hairless and atrophic. There is deep probing noted to the ulcer sites to bone and the third toe. The skin discontinuity remains open to the lateral aspect of the second toe as well. Wound Measurements and Assessment WC - Nurse 1 - General Ulcer Measurement Start: 04/21/20 14:18 Freq: Status: Active Protocol: Activity Type Activity Date Activity User E-Sign Co-Sign Detail Recorded Client Recorded Date Recorded By Document 04/28/20 11:47 [facility] [id number] 04/28/20 11:53 [facility] 04/28/20 11:47 Wound Center Nurse 1 [Ulcer Assessment] 7. L foot 3rd toe lateral -Combined with other wound No -Current Size (cm) - Length 0.6 -Current Size (cm) - Width 1 -Current Size (cm) - Depth 0.2 -Total Square Cm 0.6 -Photo Taken No -Epithelialization None Present -Tunneling No -Undermining/Tunneling No -Circular Undermining No -Exudate Amt Small -Exudate Type Serosanguineous -Wound Margin Distinct, Outline Attached -Granulation Amt Large (67-100%) -Granulation Quality Pale,Red -Slough/Fibrin Yes -Necrosis Amt Small (1-33%) -Necrotic Tissue Type Adherent Slough -Texture (Angelica-wound Skin Appearance) Assessed, Scarring -Moisture (Angelica-wound Skin Appearance Assessed, ) Maceration -Color (Angelica-wound Skin Appearance) Assessed,Palor -Temperature (Angelica-wound Skin No Abnormality Appearance) (Pt Warm) -Tenderness on Palpation (Angelica-wound No Skin Appearance) -Ulcer Cleansing Rinsed/ Irrigated with Saline -Foul Odor after Cleansing No -Anesthetic Used 5% Lidocaine Gel - Nurse 2 - General Ulcer CM Notes Start: 04/21/20 14:18 Freq: Status: Active Protocol: Activity Type Activity Date Activity User E-Sign Co-Sign Detail Recorded Client Recorded Date Recorded By Document 04/28/20 12:13 [id number] 04/28/20 12:14 04/28/20 12:13 Wound Center Nurse 2 [Procedure/Treatment] 8-right 2nd lateral toe -Time 12:14 -Correct Patient Yes -Correct Side, Site, Position Yes -Correct Procedure Yes -Procedure Performed Yes -Type of Procedure Debridement -Clinical Debridement Subcutaneous -Post Debridement Size (cm) - Length 0.1 -Post Debridement Size (cm) - Width 0.1 -Post Debridement Size (cm) - Depth 0.1 -Total Square Cm 0.01 -Wound/Ulcer Outcome Not Healed -Ulcer Cleansing Rinsed/ Irrigated with Saline -Foul Odor after Cleansing No -Bioengineered Tissue No -Bleeding Controlled with Pressure -Offloading Yes -Type of Offloading Surgical Shoe -Treatment Response Procedure Tolerated Well 7. L foot 3rd toe lateral -Time 12:13 -Correct Patient Yes -Correct Side, Site, Position Yes -Correct Procedure Yes -Procedure Performed Yes -Type of Procedure Debridement -Clinical Debridement Subcutaneous -Post Debridement Size (cm) - Length 0.6 -Post Debridement Size (cm) - Width 1.1 -Post Debridement Size (cm) - Depth 0.2 -Total Square Cm 0.66 -Wound/Ulcer Outcome Not Healed -Ulcer Cleansing Rinsed/ Irrigated with Saline -Foul Odor after Cleansing No -Bioengineered Tissue No -Bleeding Controlled with Pressure -Offloading Yes -Type of Offloading Surgical Shoe -Treatment Response Procedure Tolerated Well [See Physician Procedure note for Specifics] Pain Scale: 0-10 Numeric [Pain] -Is Patient Pain Free? Yes Musculoskeletal: No Tenderness to Palpation of Joints or Extremities, Muscle Wasting, - - Toe deformities noted with multiple toe and partial toe amputations of this foot left Neurological: - - Lack of epicritic sensation light touch is consistent with neuropathy status Psych/Mental Status: Normal Affect, Appropriate Debridement Note Post-Debridement Measurements/Treatment WC - Nurse 2 - General Ulcer CM Notes Start: 04/21/20 14:18 Freq: Status: Active Protocol: Activity Type Activity Date Activity User E-Sign Co-Sign Detail Recorded Client Recorded Date Recorded By Document 04/21/20 18:21 COLEEN [id number] 04/21/20 18:32 PL Document 04/28/20 12:13 GIANCARLO [id number] 04/28/20 12:14 GIANCARLO 04/21/20 04/28/20 18:21 12:13 Wound Center Nurse 2 8-right 2nd lateral toe -Time 12:14 -Correct Patient Yes -Correct Side, Site, Position Yes -Correct Procedure Yes -Procedure Performed Yes -Type of Procedure Debridement -Clinical Debridement Subcutaneous -Post Debridement Size (cm) - Length 0.1 -Post Debridement Size (cm) - Width 0.1 -Post Debridement Size (cm) - Depth 0.1 -Total Square Cm 0.01 -Wound/Ulcer Outcome Not Healed -Ulcer Cleansing Rinsed/ Irrigated with Saline -Foul Odor after Cleansing No -Bioengineered Tissue No -Bleeding Controlled with Pressure -Offloading Yes -Type of Offloading Surgical Shoe -Treatment Response Procedure Tolerated Well 7. L foot 3rd toe lateral -Time 15:13 12:13 -Correct Patient Yes Yes -Correct Side, Site, Position Yes Yes -Correct Procedure Yes Yes -Procedure Performed Yes Yes -Type of Procedure Debridement Debridement -Clinical Debridement Subcutaneous Subcutaneous -Post Debridement Size (cm) - Length 0.6 0.6 -Post Debridement Size (cm) - Width 0.4 1.1 -Post Debridement Size (cm) - Depth 0.6 0.2 -Total Square Cm 0.24 0.66 -Wound/Ulcer Outcome Not Healed Not Healed -Ulcer Cleansing Rinsed/ Rinsed/ Irrigated with Irrigated with Saline Saline -Foul Odor after Cleansing No No -Bioengineered Tissue No -Bleeding Controlled with Pressure Pressure -Offloading Yes -Type of Offloading Surgical Shoe -Treatment Response Procedure Procedure Tolerated Well Tolerated Well Pain Scale: 0-10 Numeric Is Patient Pain Free? Yes Yes Wound debrided: lateral 2nd toe Laterality: Left Wound Grade/Stage: grade 1 Type of Debridement: Excisional debridement Anesthesia Used: 5% Lidocaine Gel Depth: in the subcutaneous layer Percentage of wound debrided: 100 Instrument Used: #15 blade Tissue Removed: fibrous, devitalized subcutaneous, biofilm, slough Severity: Fat Layer Exposed Amount of bleeding with debridement: Mild Bleeding Controlled with: Pressure Patient tolerated procedure well - Additional Wound Wound debrided: lateral plantar third toe Laterality: Left Wound Grade/Stage: grade 3 Type of Debridement: Excisional debridement Anesthesia Used: 5% Lidocaine Gel Depth: in the subcutaneous layer Percentage of wound debrided: 100 Instrument Used: #15 blade Tissue Removed: fibrous, devitalized subcutaneous, biofilm, slough Severity: Fat Layer Exposed Amount of bleeding with debridement: Mild Bleeding Controlled with: Pressure Patient tolerated procedure: Patient tolerated procedure well Assessment/Plan Clinical Impression(s) from Imaging Studies Chest X-Ray 04/22/20 08:07 IMPRESSION: Hyperinflation. Electronically Signed: Kalpesh Hernandez, at 9:15 EDT , Service support , Assessment: Left third toe ulcer with osteomyelitis, grade 3. Left second toe ulcer, grade 1, no infection. Left fourth and fifth toe amputations. Left Hammer toe deformities. Peripheral arterial disease. Former smoker. Diabetes mellitus with neuropathy. History of MRSA. Plan: I reviewed and discussed her case. Debridement was performed as noted in the clinical panel. She was advised to change the dressing daily with Aquacel Ag. Her prior MRSA positive cultures were reviewed and I recommend she continues on doxycycline. She was seen by infectious disease specialist today and a consultation is appreciated. It is noted she is taking this twice a day now. He recommended an extended course of oral doxycycline and adjusted the dosing. I also offered her surgical versus nonsurgical options to treat osteomyelitis. She will consider hyperbaric oxygen therapy in combination with her comprehensive wound healing plan versus additional toe amputations. I also recommended and offered a transmetatarsal amputation given that she has had multiple toe surgeries and amputations every couple of years. She refuses this option at this time. She would like to proceed forward with the full versus partial toe amputation of the left third digit and would like to get this scheduled. The preoperative indication, planned procedure, possible benefits, risk, complications, and anticipated healing time and management were discussed in detail today. She understands elects to proceed. She relates she needs at least 3 weeks notice to allow her sister to request time to drive her to the procedure. She understands she will be required to have a history and physical completed and will need update her preoperative diagnostic data including some lab work and likely an EKG. The planned procedure may be completed with MAC and local anesthesia as a same-day surgical intervention. Her updated x-rays were obtained at the foot and ankle center which demonstrated osteolysis of the third toe adjacent to the ulcer site and also similar findings to some of the other distal toes of that foot. But given her recent deteriorization, probe to bone, and recent purulence this is consistent with osteomyelitis. There were no acute fractures dislocations, foreign body, or soft tissue emphysema. Her labs are reviewed. Her hemoglobin A1c was 6.1%. To continue strict offloading with cam walker use. And even up with offered to prevent limb length discrepancy issues. To return to the wound healing center 1 week or call sooner if she has any questions or concerns. I answered all her questions.
[2020-05-05 11:36] VITALS: BP 162/57; PULSE 48; RESP 18; TEMP 36.9; BMI 26.8
--- NOTE | 2020-05-05 12:07 | PCM.WC.PN ---
(1) Chronic ulcer of left foot with necrosis of bone Status: Chronic Code(s): L97.524 - 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 foot with necrosis of bone Comment: lateral and plantar third toe (2) Peripheral vascular occlusive disease Status: Chronic Code(s): I73.9 - Peripheral vascular disease, unspecified Comment: [employer]-Right SFA and Popliteal Artery 2012 [employer]INEER-Left SFA 2012 (3) Methicillin resistant Staphylococcus aureus infection Status: Chronic Code(s): A49.02 - Methicillin resistant Staphylococcus aureus infection, unspecified site Comment: A49.02 (4) Diabetes mellitus with polyneuropathy Status: Chronic Qualifiers: Diabetes mellitus type: type 2 Qualified Code(s): E11.42 - Type 2 diabetes mellitus with diabetic polyneuropathy Code(s): E11.42 - Type 2 diabetes mellitus with diabetic polyneuropathy (5) Osteomyelitis of foot Status: Chronic Qualifiers: Laterality: left Code(s): M86.9 - Osteomyelitis, unspecified (6) Chronic ulcer of left foot with fat layer exposed Status: Resolved Code(s): L97.522 - 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 foot with fat layer exposed Comment: lateral second toe (7) Toe deformity Status: Acute Qualifiers: Laterality: left Qualified Code(s): M20.62 - Acquired deformities of toe(s), unspecified, left foot Code(s): M20.60 - Acquired deformities of toe(s), unspecified, unspecified foot Type of Wound Date of Service: 05/09/20 Chief Complaint: Left third and second toes History of Wound: She returns to clinic today for ulcers to the left third and second toes. She denies pain, drainage, fever, chills, nausea, vomiting. She has a long history of recurrent ulcers, partial toe amputations, comprehensive wound healing management, osteomyelitis treatment with recurrence, and even hyperbaric oxygen therapy sessions. Her ulcer is previously been cultured and was positive for MRSA and she continues on doxycycline. She is also under the care of an infectious disease specialist. She is also here today to do surgical consents and has been scheduled for her noninvasive vascular studies as well as her clearance for surgery. Progress of Wound: Stabilizing - Physical Exam Vital Signs Temp Pulse Resp BP 98.4 F 48 L 18 162/57 H 05/05/20 11:36 05/05/20 11:36 05/05/20 11:36 05/05/20 11:36 General: Alert, Oriented x3, Cooperative, No apparent distress HEENT: Atraumatic Extremities: No cyanosis, Capillary Refill Less than 3 Seconds, No Calf Tenderness, Diminished Peripheral Pulses, - - Forefoot deformities Skin: Ulcer/ Wound - Full epithelialization noted to lateral second toe the site is healed. There is skin discontinuity to the continued lateral and plantar third toe that is granular. No erythema, streaking, purulence on expression, or odor to probing. No interdigital maceration or necrosis Wound Measurements and Assessment WC - Nurse 1 - General Ulcer Measurement Start: 04/21/20 14:18 Freq: Status: Active Protocol: Activity Type Activity Date Activity User E-Sign Co-Sign Detail Recorded Client Recorded Date Recorded By Document 05/05/20 11:36 [id number] 05/05/20 11:41 BS 05/05/20 11:36 Wound Center Nurse 1 [Ulcer Assessment] 9-right 2nd lateral toe -Combined with other wound No -Current Size (cm) - Length 0.1 -Current Size (cm) - Width 0.1 -Current Size (cm) - Depth 0.1 -Total Square Cm 0.01 -Epithelialization Large 67-100% 8. L foot 3rd toe lateral -Combined with other wound No -Current Size (cm) - Length 1.1 -Current Size (cm) - Width 0.5 -Current Size (cm) - Depth 0.1 -Total Square Cm 0.55 -Photo Taken No -Epithelialization Small 1-33% -Tunneling No -Undermining/Tunneling No -Circular Undermining No -Exudate Amt Small -Exudate Type Serosanguineous -Wound Margin Distinct, Outline Attached -Granulation Amt Large (67-100%) -Granulation Quality [place] -Slough/Fibrin Yes -Necrosis Amt Small (1-33%) -Necrotic Tissue Type Adherent Slough -Texture (Angelica-wound Skin Appearance) Assessed,Callus ,Scarring -Moisture (Angelica-wound Skin Appearance Assessed,Dry/ ) Scaly -Color (Angelica-wound Skin Appearance) Assessed -Temperature (Angelica-wound Skin No Abnormality Appearance) (Pt Warm) -Tenderness on Palpation (Angelica-wound No Skin Appearance) -Ulcer Cleansing Rinsed/ Irrigated with Saline -Foul Odor after Cleansing No -Anesthetic Used 5% Lidocaine Gel - Nurse 2 - General Ulcer CM Notes Start: 04/21/20 14:18 Freq: Status: Active Protocol: Activity Type Activity Date Activity User E-Sign Co-Sign Detail Recorded Client Recorded Date Recorded By Document 05/05/20 11:46 [id number] 05/05/20 11:49 05/05/20 11:46 Wound Center Nurse 2 [Procedure/Treatment] 9-right 2nd lateral toe -Correct Patient No -Correct Side, Site, Position No -Correct Procedure No -Procedure Performed No -Post Debridement Size (cm) - Length 0 -Post Debridement Size (cm) - Width 0 -Post Debridement Size (cm) - Depth 0 -Total Square Cm 0 -Wound/Ulcer Outcome Healed- Epithelialized 8. L foot 3rd toe lateral -Time 11:48 -Correct Patient Yes -Correct Side, Site, Position Yes -Correct Procedure Yes -Procedure Performed Yes -Type of Procedure Debridement -Clinical Debridement Subcutaneous -Post Debridement Size (cm) - Length 1.2 -Post Debridement Size (cm) - Width 0.5 -Post Debridement Size (cm) - Depth 0.1 -Total Square Cm 0.60 -Wound/Ulcer Outcome Not Healed -Ulcer Cleansing Rinsed/ Irrigated with Saline -Foul Odor after Cleansing No -Bioengineered Tissue No -Bleeding Controlled with Pressure -Offloading Yes -Type of Offloading Surgical Shoe -Treatment Response Procedure Tolerated Well [See Physician Procedure note for Specifics] Pain Scale: 0-10 Numeric [Pain] -Is Patient Pain Free? Yes Musculoskeletal: No Tenderness to Palpation of Joints or Extremities, Muscle Wasting Neurological: - - Lack of epicritic sensation consistent with neuropathy Psych/Mental Status: Normal Affect, Appropriate Debridement Note Post-Debridement Measurements/Treatment WC - Nurse 2 - General Ulcer CM Notes Start: 04/21/20 14:18 Freq: Status: Active Protocol: Activity Type Activity Date Activity User E-Sign Co-Sign Detail Recorded Client Recorded Date Recorded By Document 04/21/20 18:21 PL [id number] 04/21/20 18:32 PL Document 04/28/20 12:13 JF [id number] 04/28/20 12:14 Document 05/05/20 11:46 [id number] 05/05/20 11:49 04/21/20 04/28/20 05/05/20 18:21 12:13 11:46 Wound Center Nurse 2 9-right 2nd lateral toe -Time 12:14 -Correct Patient Yes No -Correct Side, Site, Position Yes No -Correct Procedure Yes No -Procedure Performed Yes No -Type of Procedure Debridement -Clinical Debridement Subcutaneous -Post Debridement Size (cm) - Length 0.1 0 -Post Debridement Size (cm) - Width 0.1 0 -Post Debridement Size (cm) - Depth 0.1 0 -Total Square Cm 0.01 0 -Wound/Ulcer Outcome Not Healed Healed- Epithelialized -Ulcer Cleansing Rinsed/ Irrigated with Saline -Foul Odor after Cleansing No -Bioengineered Tissue No -Bleeding Controlled with Pressure -Offloading Yes -Type of Offloading Surgical Shoe -Treatment Response Procedure Tolerated Well 8. L foot 3rd toe lateral -Time 15:13 12:13 11:48 -Correct Patient Yes Yes Yes -Correct Side, Site, Position Yes Yes Yes -Correct Procedure Yes Yes Yes -Procedure Performed Yes Yes Yes -Type of Procedure Debridement Debridement Debridement -Clinical Debridement Subcutaneous Subcutaneous Subcutaneous -Post Debridement Size (cm) - Length 0.6 0.6 1.2 -Post Debridement Size (cm) - Width 0.4 1.1 0.5 -Post Debridement Size (cm) - Depth 0.6 0.2 0.1 -Total Square Cm 0.24 0.66 0.60 -Wound/Ulcer Outcome Not Healed Not Healed Not Healed -Ulcer Cleansing Rinsed/ Rinsed/ Rinsed/ Irrigated with Irrigated with Irrigated with Saline Saline Saline -Foul Odor after Cleansing No No No -Bioengineered Tissue No No -Bleeding Controlled with Pressure Pressure Pressure -Offloading Yes Yes -Type of Offloading Surgical Shoe Surgical Shoe -Treatment Response Procedure Procedure Procedure Tolerated Well Tolerated Well Tolerated Well Pain Scale: 0-10 Numeric Is Patient Pain Free? Yes Yes Yes Wound debrided: third toe Laterality: Left Wound Grade/Stage: grade 3 Type of Debridement: Excisional debridement Anesthesia Used: 5% Lidocaine Gel Depth: in the subcutaneous layer Percentage of wound debrided: 100 Instrument Used: #15 blade Tissue Removed: fibrous, devitalized subcutaneous, biofilm, slough Severity: Fat Layer Exposed Amount of bleeding with debridement: Mild Bleeding Controlled with: Pressure Patient tolerated procedure well Assessment/Plan Clinical Impression(s) from Imaging Studies Chest X-Ray 04/22/20 08:07 IMPRESSION: Hyperinflation. Electronically Signed: Kalpesh Hernandez, at 9:15 EDT , Service support , Assessment: Left third toe ulcer with osteomyelitis, grade 3. Left second toe ulcer -healed. Left fourth and fifth toe amputations. Left Hammer toe deformities. Peripheral arterial disease. Former smoker. Diabetes mellitus with neuropathy. History of MRSA. Plan: I reviewed and discussed her case. Debridement was performed as noted in the clinical panel. She was advised to change the dressing daily with Aquacel Ag. Her prior MRSA positive cultures were reviewed and I recommend she continues on doxycycline. She was seen by infectious disease specialist today and a consultation is appreciated. It is noted she is taking this twice a day now. He recommended an extended course of oral doxycycline and adjusted the dosing. I also offered her surgical versus nonsurgical options to treat osteomyelitis. She will consider hyperbaric oxygen therapy in combination with her comprehensive wound healing plan versus additional toe amputations. I also recommended and offered a transmetatarsal amputation given that she has had multiple toe surgeries and amputations every couple of years. She refuses this option at this time. She would like to proceed forward with the full versus partial toe amputation of the left third digit and would like to get this scheduled. This is tentatively scheduled for 05-28-2020 at [facility] under MAC and local anesthesia. The preoperative indication, planned procedure, possible benefits, risk, complications, and anticipated healing time and management were discussed in detail today. She understands elects to proceed. The surgical consent was signed today for left third toe full versus partial amputation. She understands risk and complications include but are not limited to following: Pain, swelling, scarring, need for further surgery, delayed or nonhealing, transfer lesions ulcers, continued infection, blood clot, allergic reaction, loss of limb, function, life, chronic pain. She understands she will be required to have a history and physical completed and will need update her preoperative diagnostic data including some lab work and likely an EKG. she also understands she will be tested for COVID-19. Her noninvasive vascular studies have also been scheduled for 05-13-2020. Her updated x-rays were obtained at the foot and ankle center which demonstrated osteolysis of the third toe adjacent to the ulcer site and also similar findings to some of the other distal toes of that foot. But given her recent deteriorization, probe to bone, and recent purulence this is consistent with osteomyelitis. There were no acute fractures dislocations, foreign body, or soft tissue emphysema. Her labs are reviewed. Her hemoglobin A1c was 6.1%. To continue strict offloading with cam walker use. And even up with offered to prevent limb length discrepancy issues. To return to the wound healing center 1 week or call sooner if she has any questions or concerns. I answered all her questions. . 2020 MACRA entry. Medications and allergies were reconciled and reviewed today. Reviewed 05-05-2020: She is a current non-tobacco user. Her blood pressure is elevated at 162/57. She is advised to follow-up with her primary care physician. Diet and activity modifications were also recommended and advised. It is noted she does have a living will on file. her influenza vaccination has been completed within the past year. she states she has not fallen within the past year
[2020-05-12 14:37] VITALS: BP 145/66; PULSE 49; RESP 16; TEMP 37; BMI 26.8
--- NOTE | 2020-05-12 16:10 | PN.PCM_ITS ---
(1) Chronic ulcer of left foot with necrosis of bone Status: Chronic Current Visit: Yes Code(s): L97.524 - 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 foot with necrosis of bone Comment: lateral and plantar third toe (2) Peripheral vascular occlusive disease Status: Chronic Current Visit: Yes Code(s): I73.9 - Peripheral vascular disease, unspecified Comment: WAREHOUSE RECORD CLERK-Right SFA and Popliteal Artery 2012 WAREHOUSE RECORD CLERK-Left SFA 2012 (3) Methicillin resistant Staphylococcus aureus infection Status: Chronic Current Visit: Yes Code(s): A49.02 - Methicillin resistant Staphylococcus aureus infection, unspecified site Comment: A49.02 (4) Diabetes mellitus with polyneuropathy Status: Chronic Current Visit: Yes Qualifiers: Diabetes mellitus type: type 2 Qualified Code(s): E11.42 - Type 2 diabetes mellitus with diabetic polyneuropathy Code(s): E11.42 - Type 2 diabetes mellitus with diabetic polyneuropathy (5) Osteomyelitis of foot Status: Chronic Current Visit: Yes Qualifiers: Laterality: left Code(s): M86.9 - Osteomyelitis, unspecified (6) Chronic ulcer of left foot with fat layer exposed Status: Resolved Current Visit: Yes Code(s): L97.522 - 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 foot with fat layer exposed Comment: lateral second toe (7) Toe deformity Status: Acute Current Visit: Yes Qualifiers: Laterality: left Qualified Code(s): M20.62 - Acquired deformities of toe(s), unspecified, left foot Code(s): M20.60 - Acquired deformities of toe(s), unspecified, unspecified foot Type of Wound Date of Service: 05/12/20 Chief Complaint: Left third ulcer History of Wound: She returns to clinic today for ulcers to the left third toe. The second toe is no longer draining. She denies pain, drainage, fever, chills, nausea, vomiting. She has a long history of recurrent ulcers, partial toe amputations, comprehensive wound healing management, osteomyelitis treatment with recurrence, and even hyperbaric oxygen therapy sessions. Her ulcer is previously been cultured and was positive for MRSA and she continues on doxycycline. She is also under the care of an infectious disease specialist. Amputation of the partial third digit is scheduled for May when she is able to get a ride to surgery. She is already signed consents. Progress of Wound: Stabilizing - Physical Exam Vital Signs Temp Pulse Resp BP 98.6 F 49 L 16 145/66 H 05/12/20 14:37 05/12/20 14:37 05/12/20 14:37 05/12/20 14:37 General: Alert, Oriented x3, Cooperative, No apparent distress HEENT: Atraumatic Extremities: No cyanosis, Capillary Refill Less than 3 Seconds, No Calf Tenderness, Diminished Peripheral Pulses, Edema - Mild, - - Digital deformities are noted and the third toe is significantly longer than the adjacent second and fourth rays Skin: Ulcer/ Wound - No purulence, odor, streaking, necrosis. Peripheral epithelialization is noted to the third toe. Full epithelialization is noted to the second toe. Her skin is hairless and atrophic Wound Measurements and Assessment - Nurse 1 - General Ulcer Measurement Start: 04/21/20 14:18 Freq: Status: Active Protocol: Activity Type Activity Date Activity User E-Sign Co-Sign Detail Recorded Client Recorded Date Recorded By Document 05/12/20 14:37 DV [id number] 05/12/20 14:43 DV 05/12/20 14:37 Wound Center Nurse 1 [Ulcer Assessment] 8. L foot 3rd toe lateral -Combined with other wound No -Current Size (cm) - Length 0.3 -Current Size (cm) - Width 0.3 -Current Size (cm) - Depth 0.1 -Total Square Cm 0.09 -Photo Taken No -Epithelialization None Present -Tunneling No -Undermining/Tunneling No -Circular Undermining No -Classification - Thickness Full Thickness without Exposed Support Structure -Exudate Amt Small -Exudate Type Serous -Wound Margin Flat & Intact -Granulation Amt None Present (0 %) -Granulation Quality N/A -Slough/Fibrin No -Necrosis Amt None Present (0 %) -Necrotic Tissue Type Adherent Slough -Structure Exposed None/Limited to Skin Breakdown -Texture (Angelica-wound Skin Appearance) Assessed -Moisture (Angelica-wound Skin Appearance Assessed ) -Color (Angelica-wound Skin Appearance) Assessed -Temperature (Angelica-wound Skin No Abnormality Appearance) (Pt Warm) -Tenderness on Palpation (Angelica-wound No Skin Appearance) -Ulcer Cleansing Rinsed/ Irrigated with Saline -Foul Odor after Cleansing No -Anesthetic Used 4% Lidocaine Solution - Nurse 2 - General Ulcer CM Notes Start: 04/21/20 14:18 Freq: Status: Active Protocol: Activity Type Activity Date Activity User E-Sign Co-Sign Detail Recorded Client Recorded Date Recorded By Document 05/12/20 14:51 [id number] 05/12/20 14:53 05/12/20 14:51 Wound Center Nurse 2 [Procedure/Treatment] -Time 14:52 -Correct Patient Yes -Correct Side, Site, Position Yes -Correct Procedure Yes -Procedure Performed Yes -Type of Procedure Debridement -Clinical Debridement Subcutaneous -Post Debridement Size (cm) - Length 0.3 -Post Debridement Size (cm) - Width 1.1 -Post Debridement Size (cm) - Depth 0.2 -Total Square Cm 0.33 -Wound/Ulcer Outcome Not Healed -Ulcer Cleansing Rinsed/ Irrigated with Saline -Foul Odor after Cleansing No -Bioengineered Tissue No -Bleeding Controlled with Pressure -Offloading Yes -Type of Offloading Surgical Shoe -Treatment Response Procedure Tolerated Well [See Physician Procedure note for Specifics] Pain Scale: 0-10 Numeric [Pain] -Is Patient Pain Free? Yes Musculoskeletal: No Tenderness to Palpation of Joints or Extremities, Muscle Wasting Neurological: - - Lack of epicritic sensation light touch is consistent with neuropathy status Psych/Mental Status: Normal Affect, Appropriate Debridement Note Post-Debridement Measurements/Treatment WC - Nurse 2 - General Ulcer CM Notes Start: 04/21/20 14:18 Freq: Status: Active Protocol: Activity Type Activity Date Activity User E-Sign Co-Sign Detail Recorded Client Recorded Date Recorded By Document 04/21/20 18:21 [id number] 04/21/20 18:32 Document 04/28/20 12:13 [id number] 04/28/20 12:14 Document 05/05/20 11:46 [id number] 05/05/20 11:49 Document 05/12/20 14:51 [id number] 05/12/20 14:53 04/21/20 04/28/20 05/05/20 18:21 12:13 11:46 Wound Center Nurse 2 9-right 2nd lateral toe -Time 12:14 -Correct Patient Yes No -Correct Side, Site, Position Yes No -Correct Procedure Yes No -Procedure Performed Yes No -Type of Procedure Debridement -Clinical Debridement Subcutaneous -Post Debridement Size (cm) - Length 0.1 0 -Post Debridement Size (cm) - Width 0.1 0 -Post Debridement Size (cm) - Depth 0.1 0 -Total Square Cm 0.01 0 -Wound/Ulcer Outcome Not Healed Healed- Epithelialized -Ulcer Cleansing Rinsed/ Irrigated with Saline -Foul Odor after Cleansing No -Bioengineered Tissue No -Bleeding Controlled with Pressure -Offloading Yes -Type of Offloading Surgical Shoe -Treatment Response Procedure Tolerated Well 8. L foot 3rd toe lateral -Time 15:13 12:13 11:48 -Correct Patient Yes Yes Yes -Correct Side, Site, Position Yes Yes Yes -Correct Procedure Yes Yes Yes -Procedure Performed Yes Yes Yes -Type of Procedure Debridement Debridement Debridement -Clinical Debridement Subcutaneous Subcutaneous Subcutaneous -Post Debridement Size (cm) - Length 0.6 0.6 1.2 -Post Debridement Size (cm) - Width 0.4 1.1 0.5 -Post Debridement Size (cm) - Depth 0.6 0.2 0.1 -Total Square Cm 0.24 0.66 0.60 -Wound/Ulcer Outcome Not Healed Not Healed Not Healed -Ulcer Cleansing Rinsed/ Rinsed/ Rinsed/ Irrigated with Irrigated with Irrigated with Saline Saline Saline -Foul Odor after Cleansing No No No -Bioengineered Tissue No No -Bleeding Controlled with Pressure Pressure Pressure -Offloading Yes Yes -Type of Offloading Surgical Shoe Surgical Shoe -Treatment Response Procedure Procedure Procedure Tolerated Well Tolerated Well Tolerated Well Pain Scale: 0-10 Numeric Is Patient Pain Free? Yes Yes Yes 05/12/20 14:51 Wound Center Nurse 2 9-right 2nd lateral toe -Time -Correct Patient -Correct Side, Site, Position -Correct Procedure -Procedure Performed -Type of Procedure -Clinical Debridement -Post Debridement Size (cm) - Length -Post Debridement Size (cm) - Width -Post Debridement Size (cm) - Depth -Total Square Cm -Wound/Ulcer Outcome -Ulcer Cleansing -Foul Odor after Cleansing -Bioengineered Tissue -Bleeding Controlled with -Offloading -Type of Offloading -Treatment Response 8. L foot 3rd toe lateral -Time 14:52 -Correct Patient Yes -Correct Side, Site, Position Yes -Correct Procedure Yes -Procedure Performed Yes -Type of Procedure Debridement -Clinical Debridement Subcutaneous -Post Debridement Size (cm) - Length 0.3 -Post Debridement Size (cm) - Width 1.1 -Post Debridement Size (cm) - Depth 0.2 -Total Square Cm 0.33 -Wound/Ulcer Outcome Not Healed -Ulcer Cleansing Rinsed/ Irrigated with Saline -Foul Odor after Cleansing No -Bioengineered Tissue No -Bleeding Controlled with Pressure -Offloading Yes -Type of Offloading Surgical Shoe -Treatment Response Procedure Tolerated Well Pain Scale: 0-10 Numeric Is Patient Pain Free? Yes Wound debrided: lateral third toe Laterality: Left Wound Grade/Stage: grade 3 Type of Debridement: Excisional debridement Anesthesia Used: 5% Lidocaine Gel Depth: in the subcutaneous layer Percentage of wound debrided: 100 Instrument Used: #15 blade Tissue Removed: fibrous, devitalized subcutaneous, biofilm, slough Severity: Fat Layer Exposed Amount of bleeding with debridement: Mild Bleeding Controlled with: Pressure Patient tolerated procedure well Assessment/Plan Clinical Impression(s) from Imaging Studies Chest X-Ray 04/22/20 08:07 IMPRESSION: Hyperinflation. Electronically Signed: Kalpesh Hernandez, at 9:15 EDT , Service support , Active Problems (Last Reviewed 04/22/20 @ 09:22 by Aileen Sharp) Toe deformity (Acute) Peripheral vascular occlusive disease (Chronic) WAREHOUSE RECORD CLERK-Right SFA and Popliteal Artery 2012 WAREHOUSE RECORD CLERK-Left SFA 2013 Methicillin resistant Staphylococcus aureus infection (Chronic) A49.02 Chronic ulcer of left foot with necrosis of bone (Chronic) lateral and plantar third toe Diabetes mellitus with polyneuropathy (Chronic) Osteomyelitis of foot (Chronic) Assessment: Left third toe ulcer with osteomyelitis, grade 3. Left second toe ulcer -healed. Left fourth and fifth toe amputations. Left Hammer toe deformities. Peripheral arterial disease. Former smoker. Diabetes mellitus with neuropathy. History of MRSA. Plan: I reviewed and discussed her case. Debridement was performed as noted in the clinical panel. She was advised to change the dressing daily with [employer]. Her prior MRSA positive cultures were reviewed and I recommend she kerry nues on doxycycline. She was seen by infectious disease specialist today and a consultation is appreciated. It is noted she is taking this twice a day now. He recommended an extended course of oral doxycycline and adjusted the dosing. I also offered her surgical versus nonsurgical options to treat osteomyelitis. She will consider hyperbaric oxygen therapy in combination with her comprehensive wound healing plan versus additional toe amputations. I also recommended and offered a transmetatarsal amputation given that she has had multiple toe surgeries and amputations every couple of years. She refuses this option at this time. She would like to proceed forward with the full versus partial toe amputation of the left third digit and would like to get this scheduled. This is tentatively scheduled for 05-28-2020 at [facility] under MAC and local anesthesia. The preoperative indication, planned procedure, possible benefits, risk, complications, and anticipated healing time and management were discussed in detail today. She understands elects to proceed. The surgical consent was signed at her previous visit for left third toe full versus partial amputation. She understands risk and complications include but are not limited to following: Pain, swelling, scarring, need for further surgery, delayed or nonhealing, transfer lesions ulcers, continued infection, blood clot, allergic reaction, loss of limb, function, life, chronic pain. She understands she will be required to have a history and physical completed and will need update her preoperative diagnostic data including some lab work and likely an EKG. she also understands she will be tested for COVID- 19. Her noninvasive vascular studies have also been scheduled for 05-13-2020. Her updated x-rays were obtained at the foot and ankle center which demonstrated osteolysis of the third toe adjacent to the ulcer site and also similar findings to some of the other distal toes of that foot. But given her recent deteriorization, probe to bone, and recent purulence this is consistent with osteomyelitis. There were no acute fractures dislocations, foreign body, or soft tissue emphysema. Her labs are reviewed. Her hemoglobin A1c was 6.1%. To continue strict offloading with cam walker use. And even up with offered to prevent limb length discrepancy issues. To return to the wound healing center 1 week or call sooner if she has any questions or concerns. I answered all her questions. . 2020 MACRA entry. Medications and allergies were reconciled and reviewed today. Reviewed 05-05-2020: She is a current non- tobacco user. Her blood pressure is elevated at 162/57. She is advised to follow-up with her primary care physician. Diet and activity modifications were also recommended and advised. It is noted she does have a living will on file. her influenza vaccination has been completed within the past year. she states she has not fallen within the past year
--- NOTE | 2020-05-14 13:53 | ART_ITS ---
Reason For Study: L97.524 Procedure A bilateral lower extremity continuous wave Doppler with analog waveform analysis,segmental pressures,and ankle brachial indexes without exercise. Left Segmental Pressures Left brachial= 161mmHg. Left posterior tibial artery = 204mmHg. Left dorsalis pedis artery = 120mmHg. Left digit = 44 mmHg. The left dorsalis pedis waveforms are biphasic. The left posterior tibial artery waveforms are biphasic. Right Segmental Pressures Right brachial= 159mmHg. Right thigh = 136mmHg. Right calf = 124mmHg. Right posterior tibial artery = 97.mmHg. Right dorsalis pedis artery = 103mmHg. Right digit = 54 mmHg. The right dorsalis pedis waveforms are biphasic. The right posterior tibial artery waveforms are biphasic. Indices The right ankle brachial index by the dorsalis pedis is .64. The right ankle brachial index by the posterior tibial artery is .6. The right digital-brachial index is .34. The left digital-brachial index is .27. The left ankle brachial index by the dorsalis pedis is .75. The left ankle brachial index by the posterior tibial artery is 1.27. Interpretation Summary Biphasic Doppler waveforms are noted at ankle level bilaterally. Pulse-volume recording waveform amplitudes are diminished at digital level bilaterally. The resting right ankle-brachial index is moderately diminished. The resting left ankle-brachial index is normal. Digital-brachial indices are moderately to severely diminished bilaterally. There is evidence of moderate impairment of arterial flow at ankle level on the right. Arterial flow appears relatively normal at ankle level on the left. There is evidence of [id number] distal, small-vessel arterial occlusive disease at digital level bilaterally. Ordering Physician: Meeta Yoo Performed By: DEBBIE BECERRA RVT
== END 2020-05-18 23:59 ==
LOC: CVS 14:00
PROVIDERS: PCP Student in an Organized Health Care Education/Training Program; Referring Provider Podiatrist; Visit Provider Podiatrist
DX: E11.621 Type 2 diabetes mellitus with foot ulcer (principal); L97.524 Non-pressure chronic ulcer of other part of left foot with necrosis of bone; E11.42 Type 2 diabetes mellitus with diabetic polyneuropathy; E11.51 Type 2 diabetes mellitus with diabetic peripheral angiopathy without gangrene; L97.522 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 foot with fat layer exposed
CPT/HCPCS: 11042; 71046; 93005; 93923; 99212; G0463

== ENCOUNTER 2020-05-18 06:00 | Outpatient (RCR) | payer SELFPAY ==
[2019-09-26 14:35] VITALS: BMI 26.8
== END 2020-05-18 23:59 ==
LOC: CR 06:00
PROVIDERS: Family Provider Student in an Organized Health Care Education/Training Program; PCP Student in an Organized Health Care Education/Training Program; Referring Provider Student in an Organized Health Care Education/Training Program; Visit Provider Student in an Organized Health Care Education/Training Program
DX: Z00.00 Encounter for general adult medical examination without abnormal findings (principal)

== ENCOUNTER 2020-05-19 09:18 | Outpatient (RCR) | payer MEDICARE, OTHER, SELFPAY ==
[2020-05-12 14:37] VITALS: BMI 26.8
[2020-05-19 00:33] VITALS: BP 145/66; PULSE 49; RESP 16; TEMP 37
[2020-05-19 10:53] VITALS: BP 138/58; PULSE 48; RESP 18; TEMP 36.9
--- NOTE | 2020-05-19 12:10 | PN.PCM_ITS ---
(1) Chronic ulcer of left foot with fat layer exposed Status: Chronic Current Visit: Yes Code(s): L97.522 - 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 foot with fat layer exposed Comment: lateral second toe (2) Peripheral vascular occlusive disease Status: Chronic Current Visit: Yes Code(s): I73.9 - Peripheral vascular disease, unspecified Comment: STEAM LOCOMOTIVE FIRER/FIREMAN-Right SFA and Popliteal Artery 2012 STEAM LOCOMOTIVE FIRER/FIREMAN-Left SFA 2012 (3) Toe deformity Status: Acute Current Visit: Yes Qualifiers: Laterality: left Qualified Code(s): M20.62 - Acquired deformities of toe(s), unspecified, left foot Code(s): M20.60 - Acquired deformities of toe(s), unspecified, unspecified foot (4) Chronic kidney disease, stage 3 Status: Chronic Current Visit: Yes Code(s): N18.3 - Chronic kidney disease, stage 3 (moderate) (5) Diabetes mellitus with polyneuropathy Status: Chronic Current Visit: Yes Qualifiers: Diabetes mellitus type: type 2 Qualified Code(s): E11.42 - Type 2 diabetes mellitus with diabetic polyneuropathy Code(s): E11.42 - Type 2 diabetes mellitus with diabetic polyneuropathy (6) Osteomyelitis of left foot Status: Chronic Current Visit: Yes Code(s): M86.9 - Osteomyelitis, unspecified Type of Wound Date of Service: 05/19/20 Chief Complaint: Left third ulcer History of Wound: She returns to clinic today for ulcers to the left third toe. The second toe is no longer draining. She asked that I check this site out again today. She denies pain, drainage, fever, chills, nausea, vomiting. She has a long history of recurrent ulcers, partial toe amputations, comprehensive wound healing management, osteomyelitis treatment with recurrence, and even hyperbaric oxygen therapy sessions. Her ulcer is previously been cultured and was positive for MRSA and she continues on doxycycline. She is also under the care of an infectious disease specialist. Amputation of the partial third digit is scheduled for May when she is able to get a ride to surgery. She is already signed consents. Progress of Wound: Stabilizing - Physical Exam Vital Signs Temp Pulse Resp BP 98.4 F 48 L 18 138/58 H 05/19/20 10:53 05/19/20 10:53 05/19/20 10:53 05/19/20 10:53 General: Alert, Oriented x3, Cooperative, No apparent distress HEENT: Atraumatic Extremities: No cyanosis, No edema, Capillary Refill Less than 3 Seconds, No Calf Tenderness, Diminished Peripheral Pulses Skin: Ulcer/ Wound - Full epithelialization continues on the second toe. There is peripheral epithelialization progress noted on the third toe. The skin is hairless and atrophic. There is no purulence, erythema, streaking, odor, infection Wound Measurements and Assessment - Nurse 1 - General Ulcer Measurement Start: 05/19/20 10:53 Freq: Status: Active Protocol: Activity Type Activity Date Activity User E-Sign Co-Sign Detail Recorded Client Recorded Date Recorded By Document 05/19/20 10:53 DOMINICK [id number] 05/19/20 10:59 DOMINICK 05/19/20 10:53 Wound Center Nurse 1 [Ulcer Assessment] 9-right 2nd lateral toe -Current Size (cm) - Length 0.1 -Current Size (cm) - Width 0.1 -Current Size (cm) - Depth 0.1 -Total Square Cm 0.01 -Photo Taken No -Exudate Amt None Present -Wound Margin Distinct, Outline Attached -Granulation Amt Large (67-100%) -Granulation Quality Pale -Necrosis Amt None Present (0 %) -Structure Exposed N/A -Texture (Angelica-wound Skin Appearance) Scarring -Moisture (Angelica-wound Skin Appearance Dry/Scaly ) -Color (Angelica-wound Skin Appearance) No Abnormality -Temperature (Angelica-wound Skin No Abnormality Appearance) (Pt Warm) -Ulcer Cleansing Wound Cleanser -Foul Odor after Cleansing No -Anesthetic Used 4% Lidocaine Solution - Nurse 2 - General Ulcer CM Notes Start: 05/19/20 10:53 Freq: Status: Active Protocol: Activity Type Activity Date Activity User E-Sign Co-Sign Detail Recorded Client Recorded Date Recorded By Document 05/19/20 11:12 GIANCARLO [id number] 05/19/20 11:16 GIANCARLO 05/19/20 11:12 Wound Center Nurse 2 [Procedure/Treatment] -Time 11:12 -Correct Patient No -Correct Side, Site, Position No -Correct Procedure No -Procedure Performed No -Post Debridement Size (cm) - Length 0 -Post Debridement Size (cm) - Width 0 -Post Debridement Size (cm) - Depth 0 -Total Square Cm 0 -Bleeding Controlled with Pressure -Offloading Yes -Type of Offloading Surgical Shoe -Treatment Response Procedure Tolerated Well 8. L foot 3rd toe lateral -Time 11:13 -Correct Patient Yes -Correct Side, Site, Position Yes -Correct Procedure Yes -Procedure Performed Yes -Type of Procedure Debridement -Clinical Debridement Subcutaneous -Post Debridement Size (cm) - Length 0.1 -Post Debridement Size (cm) - Width 0.8 -Post Debridement Size (cm) - Depth 0.1 -Total Square Cm 0.08 -Wound/Ulcer Outcome Not Healed -Ulcer Cleansing Rinsed/ Irrigated with Saline -Foul Odor after Cleansing No -Bioengineered Tissue No -Bleeding Controlled with Pressure -Offloading Yes -Type of Offloading Surgical Shoe -Treatment Response Procedure Tolerated Well [See Physician Procedure note for Specifics] Pain Scale: 0-10 Numeric [Pain] -Is Patient Pain Free? Yes Musculoskeletal: No Tenderness to Palpation of Joints or Extremities, Muscle Wasting, - - Toe deformities noted and partial toe amputations. No bogginess fluctuance. Compartments are soft to palpate Neurological: - - Lack of epicritic sensation light touch is consistent with neuropathy status Psych/Mental Status: Normal Affect, Appropriate Debridement Note Post-Debridement Measurements/Treatment WC - Nurse 2 - General Ulcer CM Notes Start: 05/19/20 10:53 Freq: Status: Active Protocol: Activity Type Activity Date Activity User E-Sign Co-Sign Detail Recorded Client Recorded Date Recorded By Document 05/19/20 11:12 GIANCARLO [id number] 05/19/20 11:16 GIANCARLO 05/19/20 11:12 Wound Center Nurse 2 9-right 2nd lateral toe -Time 11:12 -Correct Patient No -Correct Side, Site, Position No -Correct Procedure No -Procedure Performed No -Post Debridement Size (cm) - Length 0 -Post Debridement Size (cm) - Width 0 -Post Debridement Size (cm) - Depth 0 -Total Square Cm 0 -Bleeding Controlled with Pressure -Offloading Yes -Type of Offloading Surgical Shoe -Treatment Response Procedure Tolerated Well 8. L foot 3rd toe lateral -Time 11:13 -Correct Patient Yes -Correct Side, Site, Position Yes -Correct Procedure Yes -Procedure Performed Yes -Type of Procedure Debridement -Clinical Debridement Subcutaneous -Post Debridement Size (cm) - Length 0.1 -Post Debridement Size (cm) - Width 0.8 -Post Debridement Size (cm) - Depth 0.1 -Total Square Cm 0.08 -Wound/Ulcer Outcome Not Healed -Ulcer Cleansing Rinsed/ Irrigated with Saline -Foul Odor after Cleansing No -Bioengineered Tissue No -Bleeding Controlled with Pressure -Offloading Yes -Type of Offloading Surgical Shoe -Treatment Response Procedure Tolerated Well Pain Scale: 0-10 Numeric Is Patient Pain Free? Yes Wound debrided: lateral 3rd toe Laterality: Left Wound Grade/Stage: grade 3 Type of Debridement: Excisional debridement Anesthesia Used: 5% Lidocaine Gel Depth: in the subcutaneous layer Percentage of wound debrided: 100 Instrument Used: #15 blade Tissue Removed: fibrous, devitalized subcutaneous, biofilm, slough Severity: Fat Layer Exposed Amount of bleeding with debridement: Mild Bleeding Controlled with: Pressure Patient tolerated procedure well Assessment/Plan Active Problems (Last Reviewed 04/22/20 @ 09:22 by Aileen Sharp) Chronic ulcer of left foot with fat layer exposed (Chronic) lateral second toe Toe deformity (Acute) Osteomyelitis of left foot (Chronic) Chronic kidney disease, stage 3 (Chronic) Peripheral vascular occlusive disease (Chronic) STEAM LOCOMOTIVE FIRER/FIREMAN-Right SFA and Popliteal Artery 2012 STEAM LOCOMOTIVE FIRER/FIREMAN-Left SFA 2012 Diabetes mellitus with polyneuropathy (Chronic) Chronic ulcer of left foot with fat layer exposed (Acute) Assessment: Left third toe ulcer with osteomyelitis, grade 3. Left second toe ulcer -remains healed. Left fourth and fifth toe amputations. Left Hammer toe deformities. Peripheral arterial disease. Former smoker. Diabetes mellitus with neuropathy. History of MRSA. Plan: I reviewed and discussed her case. Debridement was performed as noted in the clinical panel. She was advised to change the dressing daily with Aquacel Ag. She was seen by infectious disease specialist today and a consultation is appreciated. She was completing the advised doxycycline oral dose. I also offered her surgical versus nonsurgical options to treat osteomyelitis. She will consider hyperbaric oxygen therapy in combination with her comprehensive wound healing plan versus additional toe amputations. She actually elects not to go forward with hyperbarics and wants the toe removed due to the deformity infection and bone infection. I also recommended and offered a transmetatarsal amputation given that she has had multiple toe surgeries and amputations every couple of years. She refuses this option at this time. She would like to proceed forward with the full versus partial toe amputation of the left third digit and would like to get this scheduled. This is tentatively scheduled for 7-10-2020 at [facility] under MAC and local anesthesia. The preoperative indication, planned procedure, possible benefits, risk, complications, and anticipated healing time and management were discussed in detail today. She understands elects to proceed. The surgical consent was signed at her previous visit for left third toe full versus partial amputation. She understands risk and complications include but are not limited to following: Pain, swelling, scarring, need for further surgery, delayed or nonhealing, transfer lesions ulcers, continued infection, blood clot, allergic reaction, loss of limb, function, life, chronic pain. She understands she will be required to have a history and physical completed and will need update her preoperative diagnostic data including some lab work and likely an EKG. she also understands she will be tested for COVID-19. Her noninvasive vascular studies have also been scheduled for 05-13-2020. These were reviewed and she continues to have evidence of vessel calcification vascular disease. On the left side her JEFFREY is 1.27, she has biphasic waveforms in her toe brachial index for the hallux was 0.27. We discussed the appropriateness of toe amputation and it is noted she is recently demonstrating progress and she wants the deformity corrected because this keeps opening. This will be considered. Her updated x- rays were obtained at the foot and ankle center which demonstrated osteolysis of the third toe adjacent to the ulcer site and also similar findings to some of the other distal toes of that foot. But given her recent deteriorization, probe to bone, and recent purulence this is consistent with osteomyelitis. There were no acute fractures dislocations, foreign body, or soft tissue emphysema. Her labs are reviewed. Her hemoglobin A1c was 6.1%. To continue strict offloading with cam walker use. And even up with offered to prevent limb length discrepancy issues. She would not follow-up next week because she has surgery. I answered all her questions. . 2020 [employer] entry. Medications and allergies were reconciled and reviewed today. Reviewed 05-05-2020: She is a current non-tobacco user. Her blood pressure is elevated at 162/57. She is advised to follow-up with her primary care physician. Diet and activity modifications were also recommended and advised. It is noted she does have a living will on file. her influenza vaccination has been completed within the past year. she states she has not fallen within the past year
== END 2020-06-18 23:59 ==
LOC: CVS 09:18
PROVIDERS: PCP Student in an Organized Health Care Education/Training Program; Referring Provider Podiatrist; Visit Provider Podiatrist
DX: E11.621 Type 2 diabetes mellitus with foot ulcer (principal); L97.524 Non-pressure chronic ulcer of other part of left foot with necrosis of bone; L97.522 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 foot with fat layer exposed; E11.42 Type 2 diabetes mellitus with diabetic polyneuropathy; E11.51 Type 2 diabetes mellitus with diabetic peripheral angiopathy without gangrene
CPT/HCPCS: 11042

== ENCOUNTER 2020-05-28 05:38 | Day surgery (SDC) | payer MEDICARE, OTHER, SELFPAY ==
[2020-04-28 11:47] VITALS: BMI 26.8
[2020-05-12 14:37] VITALS: BMI 26.8
[2020-05-28] VITALS (7 sets, daily range): BP systolic 118–129; BP diastolic 41–49; PULSE 47–55; RESP 14–16; TEMP 36.2–36.7; O2SAT 96–98; BMI 27.5
--- NOTE | 2020-05-28 | BON_PTH ---
PATIENT: KIMBERLY NEWMAN LOC: [facility] [place] U#:[id number] AGE/SX: 70/F ROOM: RE05/28/[address]: Dr. Meeta Yoo DPM : 1950 BED: DIS: 05/28/2020 SPEC #: [id number] RECD: 05/28/20 08:16 STATUS: DALJIT REFaustina #: [id number] MARIELLE: 05/28/20 00:[address]: Meeta Yoo DEPT: SURGICAL PATHOLOGY RECD BY: Toni Doe ENTERED: 05/28/20 08:45 SP TYPE: Bone OTHR DR: Dr. Rishi Vasquez DO Tissues: A - Bone of foot, NOS B - Bone of foot, NOS Procedures: Decalcification bone/plaque Surgery Specimen Level III Surgery Specimen Level IV HEADER OPERATION: Partial third toe amputation PRE-OP DIAGNOSIS: Osteomyelitis left third toe TISSUE SUBMITTED: A - Clearance fragment, B - Bone and soft tissue left foot MICROSCOPIC DIAGNOSIS A. Clearance fragment: A piece of bone, negative for acute osteomyelitis. B. Bone and soft tissue left foot, partial third toe amputation: A piece of skin with underlying tissue with acute and chronic inflammation and dermal reactive changes. Hyperkeratosis and parakeratosis. Underlying bone with moderate to marked chronic osteomyelitis and mild acute osteomyelitis. SJ:rg 06/02/20 COMMENT Case has been reviewed in consultation with Dr. Lee who concurs with the above diagnosis. IDC:AM MICROSCOPIC DESCRIPTION Slides are reviewed. GROSS DESCRIPTION A - Received in fixative is one container labeled with the patient's name and designated clearance fragment. The specimen consists of a piece of bone measuring 0.7 x 0.5 x 0.1 cm. The entire specimen is submitted in one cassette after decalcification. B - Received in fixative is one container labeled with the patient's name and designated bone and soft tissue left foot. The specimen consists of a piece of skin with underlying tissue measuring 2 x 1.5 x 0.5 cm. The skin surface appears unremarkable. A piece of bone is also noted in this piece of tissue. This piece of skin is inked. Also present in the container are multiple detached pieces of bone measuring in aggregate 2 x 1 x 0.4 cm. The entire specimen is submitted in two cassettes as follows: 1 - skin and underlying tissue, 2 - bone after decalcification. Cassette 2 also contains a portion of skin with underlying bone. / SJ:rg 05/28/20 TC:2 CPT: 87060, 33623, 09616 x2
[2020-05-28] MEDS: Lactated Ringers 1,000 ML 60 ML IV (06:21)
[2020-05-28 06:31] LABS: Bedside Glucose 94 mg/dL (70-110)
--- NOTE | 2020-05-28 07:20 | RAD_ITS ---
STUDY: X-RAY LEFT FOOT, THERE TOE REASON FOR EXAM: Female, 70 years old. Toe amputation TECHNIQUE: 3 intraoperative view(s) of the toe were obtained. COMPARISON: None. FINDINGS: 3 cone down intraoperative views of the foot were obtained intraoperatively. The patient is status post amputation of the distal portion of the proximal phalanx of the fourth toe as well as the middle and distal phalanges. The patient is status post amputation of the proximal, middle and distal phalanges of the fourth toe as well as amputation of the fifth metatarsal. There is also evidence of amputation of the middle and distal phalanges of the second toe. RAD/Toe(s) Min 2 Views IMPRESSION: Intraoperative imaging provided. Electronically Signed: Kalpesh Hernandez, at 13:00 EDT , Service support ,
[2020-05-28] MEDS: Cefazolin 2 GM in 0.9% Normal Saline 100 ML IV (07:25)
[2020-05-28] MEDS: Bupivacaine Mpf 0.5% 30 ML VIAL (07:45)
--- NOTE | 2020-05-28 08:10 | DCINST_ITS ---
Discharge Activity: May Not Shower Weight Bearing Status: Partial weight bearing - heel weight bear with surgical shoe Keep extremity elevated above heart level: - - intermittently dangle and elevate the foot throughout the day Call your doctor if your incision/area has: Continuous Slow Oozing, Sudden Increased Bleeding, Increased Pain/ Swelling, Increased Redness, Foul Smelling Discharge, Swelling at the incision site Call your doctor if you observe: Fever of 101 or Higher, Calf discomfort, Uncontrolled pain Cleanse incision/area with: Keep Dressing Clean & Dry Allergies/Adverse Reactions: Allergies Sulfa (Sulfonamide Antibiotics) Allergy (Verified 05/20/20 13:09) Unknown doesn't remember/ allergy noted as a child Medications to take at Discharge Ascorbate Calcium [Vitamin C] 500 mg PO LUNCH 01/13/14 Aspirin E.C. [Ecotrin] 81 mg PO QHS 01/13/14 Gabapentin 300 mg PO TID 01/13/14 Lisinopril [Zestril] 40 mg PO DAILY 01/13/14 Multivitamins,Therapeutic [Multivitamin] 1 tab PO DAILY 01/13/14 Estradiol [Estrace Vaginal Cream] 1 dose VAGINAL SUTU 05/31/16 Simvastatin [Zocor] 40 mg PO QHS 05/31/16 Cranberry Fruit Extract [Cranberry] 500 mg PO DINNER 06/29/16 [place]-3 Fatty Acids/Fish Oil [Fish Oil 1,000 mg Capsule] 1 ea PO DAILY 06/29/16 Hydrochlorothiazide [Hctz] 25 mg PO DAILY 11/14/16 glimepiride 2 mg tablet 2 mg PO DAILY tab 07/29/18 metformin 500 mg tablet 500 mg PO DAILY tab 07/29/18 Ferrous Sulfate [Iron] 325 mg PO DAILY 08/15/18 clopidogrel 75 mg tablet 75 mg PO DAILY #30 tab 11/26/19 metoprolol succinate 50 mg tablet,extended release 24 hr 50 mg PO DAILY #90 tab 02/24/20 Amlodipine Besylate [Norvasc] 10 mg PO DAILY 05/20/20 Cholecalciferol (Vitamin D3) [Vitamin D3] 2,000 unit PO DAILY 05/20/20 Docusate Sodium 100 mg PO TID 05/20/20 Primary Care Physician: Rishi Vasquez DO [Primary Care Provider] - Test Results: Test results from this visit will be discussed in further detail at your follow- up appointment, if applicable. Please Follow Up With: Meeta Yoo DPM When: [facility] next week. Call [phone] to confirm. Proposed Discharge Date: 05/28/20
--- NOTE | 2020-05-28 08:13 | OP.PCM_ITS ---
Problem List (1) Chronic ulcer of left foot with fat layer exposed Status: Chronic Comment: lateral second toe (2) Toe deformity Status: Chronic Qualifiers: (3) Osteomyelitis of left foot Status: Chronic Qualifiers: Osteomyelitis type: subacute Qualified Code(s): M86.272 - Subacute osteomyelitis, left ankle and foot Report of Operation Date of Procedure: 05/28/20 Pre-Operative Diagnosis: Left third toe osteomyelitis with chronic ulceration and deformity Post-Operative Diagnosis: Left third toe osteomyelitis with chronic ulceration and deformity Surgery/Procedure Performed:: Partial left third toe amputation Description of Surgical Findings:: Hemostasis: Anatomic dissection. No tourniquet utilized Materials: 3-0 Vicryl and nylon Complications: None Specimen sent The patient tolerated the procedure and anesthesia well. She was transported to the PACU with vital stable and vascular status intact to her left foot that is consistent with her preoperative status. She will be discharged home upon continued stability. Postoperative orders were entered electronically. Prior to leaving the operating room, radiographic views (AP, lateral, oblique) were reviewed demonstrating adequate amputation of the third toe and the forefoot parabola is well preserved. There are no acute injuries or foreign body noted. junior staff accountant: none - surgeon:Meeta Yoo DPM. Nursing Student: Elizabeth Gaines PGY3 Type of Anesthesia:: Local MAC - Preoperative: One-to-one mixture of 1% lidocaine plain and 0.5% Marcaine plain administered in typical third ray block fashion, 7 cc Specimen's removed: 1. pathology soft tissue and bone left foot. 2. pathology left foot clearance fragment (third toe). 3. microbiology left foot clearance fragement (third toe)- aerobic, anaerobic, acid fast, fungal, mrsa pcr Estimated Blood Loss (mL): < 30 mL Description of Procedure: Indications: This 70-year-old female with significant past medical history of diabetes with peripheral neuropathy, small vessel vascular disease, coronary artery disease, chronic kidney disease, hypertension, retinopathy, thyroid nodules continues to have non-healing of her left third toe ulcer with progressive deterioration of the skin envelope and osteomyelitis. She has delayed healing of the ulcer site. There is also a concern of underlying osteomyelitis with positive probe to bone. The x-rays of the left foot demonstrate osteolysis of the distal phalanx of the third toe and significant dorsal toe contraction. There is no acute fracture, dislocation, soft tissue emphysema, or foreign body. She has failed conservative care including offloading, traditional wound care, local cellulitis and infection management, rest, diabetic control. She also had a recent updated noninvasive vascular study and will continue to follow-up with vascular surgeon. She has small vessel disease and this is noted. It is noted she also recently healed an ulcer on her second toe in the same foot in a timely manner. The preoperative indications, planned procedure, possible benefits, risks, anticipated healing time and management were discussed in detail with the patient. No guarantees were made. She understands complications and risks may include but are not limited to the following: delayed or nonhealing, pain, scarring, infection, need for revisional surgery, allergy, blood clot, loss of limb, function, life, transfer lesion or new ulcer formation. She understands COVID-19 is a current situation and her chronic ulcer is preventing her from performing her daily activities. She understands the inherent risks with the virus being present in the community and understands significant precautions are being taken to prevent communicable spread during her hospital session. She therefore elects to proceed forward with the procedure at this time. I answered all of her questions. The surgical consent and the surgical limb were signed. Her preoperative history and physical exam completed by her primary care physician including her clearance was reviewed in detail. The preoperative diagnostic data was also reviewed including labs and ekg. Procedure in detail: The patient was transferred to the operating room via cart and placed on the operating table in the supine position. Final verification of the patient, surgery, and limb designation were performed via the timeout procedure. IV MAC sedation was initiated by the anesthesia team and local anesthetic was administered by the podiatry team. No tourniquet was utilized. Her lower extremity was bumped to allow good exposure. The left lower extremity was prepped and draped in the usual aseptic manner. Surgery began as a following: Attention was first directed to the left third toe in which a fishmouth incision was made to allow for removal of the devitalized ulcer with nonviable skin and bone of the third toe. The toe was disarticulated at the proximal interphalangeal joint level. This was removed from the table and sent to pathology as noted. A clearance fragment was obtained from the head of this bone and sent to both microbiology and pathology. She has noticed that there was no pulsatile bleeding at this time however there was capillary refill time to the resected areas and the tissue appeared to be healthy. There was no purulence, odor, streaking, discolored, or deterioration of the remaining third toe. Saline irrigation was performed. Gentle no touch technique closure was used to reapproximate the surgical wound with 1 placement of a 2-0 Vicryl. Next the skin was gently reapproximated utilizing 3-0 nylon with simple suture technique. A postoperative dressing was applied with Betadine soaked Adaptic, gauze, Kerlix, and an Marino wrap applied in a noncompressive manner. A postoperative x-ray was obtained with the mini C arm demonstrating adequate resection of part of the third toe. No acute injuries or foreign bodies were identified. After procedure: The patient tolerated the procedure and anesthesia well. She was transported to the PACU with vital signs stable and vascular status intact to left lower extremity. She was advised to keep her dressing clean, dry, and intact until follow-up this upcoming week at the foot [facility] ankle center. She was advised to only put weight on her heel with her surgical shoe. She was advised to ice behind her knee if needed for pain. It is noted she has neuropathy and I do not anticipate a lot of pain with this procedure. She was advised to participate with intermittent dangling and elevation for pain control and edema management. Postoperative x-ray was reviewed as noted. Her postoperative orders were entered electronically. Meeta Yoo DPM, [facility] Grafts/Implants Used: none - Complications none - Admit VTE Documentation VTE Present on Admission: No VTE Mechan Device Prophylaxis: SCD's VTE Pharm Prophylaxis ordered?: No Reason prophylaxis not ordered:: Procedure Not Indicated
== END 2020-05-28 09:10 | disposition home or self-care (01) ==
LOC: SDC 05:40 → AC 05:40
PROVIDERS: Anesthesiology; PCP Student in an Organized Health Care Education/Training Program; Referring Provider Podiatrist; Visit Provider Podiatrist
PROC: (CPT 28825; principal; 2020-05-28 07:15)
DX: E11.621 Type 2 diabetes mellitus with foot ulcer (principal); L97.522 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 foot with fat layer exposed; M86.272 Subacute osteomyelitis, left ankle and foot; E11.69 Type 2 diabetes mellitus with other specified complication; E11.59 Type 2 diabetes mellitus with other circulatory complications; M20.62 Acquired deformities of toe(s), unspecified, left foot; E11.42 Type 2 diabetes mellitus with diabetic polyneuropathy; N18.9 Chronic kidney disease, unspecified; I12.9 Hypertensive chronic kidney disease with stage 1 through stage 4 chronic kidney disease, or unspecified chronic kidney disease; I25.10 Atherosclerotic heart disease of native coronary artery without angina pectoris; E11.22 Type 2 diabetes mellitus with diabetic chronic kidney disease; Z79.899 Other long term (current) drug therapy; Z79.02 Long term (current) use of antithrombotics/antiplatelets; Z79.84 Long term (current) use of oral hypoglycemic drugs; Z79.82 Long term (current) use of aspirin; D50.9 Iron deficiency anemia, unspecified; E78.00 Pure hypercholesterolemia, unspecified; Z11.59 Encounter for screening for other viral diseases; Z87.891 Personal history of nicotine dependence
CPT/HCPCS: 01480; 28825; 73660; 76000; 82962; 87015; 87070; 87075; 87102; 87116; 87205; 87206; 87635; 88304; 88305; 88311; G2023; J7120; J2405; U0003

== ENCOUNTER 2020-06-17 06:00 | Outpatient (RCR) | payer SELFPAY ==
[2020-05-12 14:37] VITALS: BMI 26.8
== END 2020-06-18 23:59 ==
LOC: CR 06:00
PROVIDERS: Family Provider Student in an Organized Health Care Education/Training Program; PCP Student in an Organized Health Care Education/Training Program; Referring Provider Student in an Organized Health Care Education/Training Program; Visit Provider Student in an Organized Health Care Education/Training Program
DX: Z00.00 Encounter for general adult medical examination without abnormal findings (principal)

== ENCOUNTER 2020-07-15 06:00 | Outpatient (RCR) | payer SELFPAY ==
[2020-05-28 05:58] VITALS: BMI 27.5
== END 2020-07-19 23:59 ==
LOC: CR 06:00
PROVIDERS: Family Provider Student in an Organized Health Care Education/Training Program; PCP Student in an Organized Health Care Education/Training Program; Referring Provider Student in an Organized Health Care Education/Training Program; Visit Provider Student in an Organized Health Care Education/Training Program
DX: Z00.00 Encounter for general adult medical examination without abnormal findings (principal)

== ENCOUNTER 2020-08-17 06:00 | Outpatient (RCR) | payer SELFPAY ==
[2020-05-28 05:58] VITALS: BMI 27.5
== END 2020-08-18 23:59 ==
LOC: CR 06:00
PROVIDERS: Family Provider Student in an Organized Health Care Education/Training Program; PCP Student in an Organized Health Care Education/Training Program; Referring Provider Student in an Organized Health Care Education/Training Program; Visit Provider Student in an Organized Health Care Education/Training Program
DX: Z00.00 Encounter for general adult medical examination without abnormal findings (principal)

== ENCOUNTER → 2020-09-13 10:46 | Outpatient (CLI) | payer MEDICARE, OTHER, SELFPAY ==
[2020-05-28 05:58] VITALS: BMI 27.5
--- NOTE | 2020-09-13 10:50 | ART_ITS ---
Reason For Study: PVD Procedure A bilateral lower extremity continuous wave Doppler with analog waveform analysis,segmental pressures,and ankle brachial indexes without exercise. Left Segmental Pressures Left brachial= 153mmHg. Left thigh = 151mmHg. Left calf = 100mmHg. Left posterior tibial artery = 102mmHg. Left dorsalis pedis artery = 75mmHg. Left digit = 52 mmHg. The left dorsalis pedis waveforms are biphasic. The left posterior tibial artery waveforms are biphasic. Right Segmental Pressures Right brachial= 151mmHg. Right thigh = 124mmHg. Right calf = 92mmHg. Right posterior tibial artery = 83mmHg. Right dorsalis pedis artery = 91mmHg. Right digit = 61 mmHg. The right dorsalis pedis waveforms are biphasic. The right posterior tibial artery waveforms are biphasic. Indices The right ankle brachial index by the dorsalis pedis is 0.59. The right ankle brachial index by the posterior tibial artery is 0.54. The right digital-brachial index is 0.40. The left ankle brachial index by the dorsalis pedis is 0.49. The left ankle brachial index by the posterior tibial artery is 0.67. The left digital-brachial index is 0.34. Interpretation Summary Moderately severe bilateral lower extremity arterial occlusive disease based upon ankle-brachial indices and bilateral posterior tibial and dorsalis pedis biphasic waveforms Abnormal bilateral digital brachial indices Ordering Physician: Ciaran Gold Referring Physician: Rishi Vasquez Performed By: Jacquie French RVT
== END ==
PROVIDERS: PCP Student in an Organized Health Care Education/Training Program; Referring Provider Orthopaedic Surgery; Visit Provider Orthopaedic Surgery
DX: I73.9 Peripheral vascular disease, unspecified (principal)
CPT/HCPCS: 93923

== ENCOUNTER 2020-09-16 06:00 | Outpatient (RCR) | payer SELFPAY ==
[2020-05-28 05:58] VITALS: BMI 27.5
== END 2020-09-18 23:59 ==
LOC: CR 06:00
PROVIDERS: Family Provider Student in an Organized Health Care Education/Training Program; PCP Student in an Organized Health Care Education/Training Program; Referring Provider Student in an Organized Health Care Education/Training Program; Visit Provider Student in an Organized Health Care Education/Training Program
DX: Z00.00 Encounter for general adult medical examination without abnormal findings (principal)

== ENCOUNTER → 2020-10-11 17:59 | Outpatient (CLI) | payer MEDICARE, OTHER, SELFPAY ==
[2020-10-11 20:59] LABS: M R Staph aureus DNA By PCR POSITIVE (Negative); Probe Check PASS; Staph aureus DNA By PCR POSITIVE (Negative)
== END ==
PROVIDERS: PCP Student in an Organized Health Care Education/Training Program; Referring Provider Podiatrist; Visit Provider Podiatrist
DX: L03.115 Cellulitis of right lower limb (principal); L97.512 Non-pressure chronic ulcer of other part of right foot with fat layer exposed
CPT/HCPCS: 87070; 87075; 87077; 87186; 87205; 87640

== ENCOUNTER 2020-10-12 06:00 | Outpatient (RCR) | payer SELFPAY ==
[2020-05-28 05:58] VITALS: BMI 27.5
== END 2020-10-18 23:59 ==
LOC: CR 06:00
PROVIDERS: Family Provider Student in an Organized Health Care Education/Training Program; PCP Student in an Organized Health Care Education/Training Program; Referring Provider Student in an Organized Health Care Education/Training Program; Visit Provider Student in an Organized Health Care Education/Training Program
DX: Z00.00 Encounter for general adult medical examination without abnormal findings (principal)

== ENCOUNTER 2020-11-18 08:00 | Outpatient (RCR) | payer SELFPAY | END 2020-11-18 23:59 | LOC: CR 08:00 | PROVIDERS: Family Provider Student in an Organized Health Care Education/Training Program; PCP Student in an Organized Health Care Education/Training Program; Referring Provider Student in an Organized Health Care Education/Training Program; Visit Provider Student in an Organized Health Care Education/Training Program | DX: Z00.00 Encounter for general adult medical examination without abnormal findings (principal) ==

== ENCOUNTER 2020-12-16 08:00 | Outpatient (RCR) | payer SELFPAY ==
[2020-05-28 05:58] VITALS: BMI 27.5
== END 2020-12-19 23:59 ==
LOC: CR 08:00
PROVIDERS: PCP Student in an Organized Health Care Education/Training Program; Visit Provider Student in an Organized Health Care Education/Training Program
DX: Z00.00 Encounter for general adult medical examination without abnormal findings (principal)

== ENCOUNTER 2021-01-13 08:00 | Outpatient (RCR) | payer SELFPAY ==
[2020-11-25 09:31] VITALS: BMI 26.8
== END 2021-01-16 23:59 ==
LOC: CR 08:00
PROVIDERS: PCP Student in an Organized Health Care Education/Training Program; Visit Provider Student in an Organized Health Care Education/Training Program
DX: Z00.00 Encounter for general adult medical examination without abnormal findings (principal)

== ENCOUNTER 2021-02-15 08:00 | Outpatient (RCR) | payer SELFPAY ==
[2020-11-25 09:31] VITALS: BMI 26.8
== END 2021-02-16 23:59 ==
LOC: CR 08:00
PROVIDERS: PCP Student in an Organized Health Care Education/Training Program; Visit Provider Student in an Organized Health Care Education/Training Program
DX: Z00.00 Encounter for general adult medical examination without abnormal findings (principal)

== ENCOUNTER 2021-03-17 08:00 | Outpatient (RCR) | payer SELFPAY ==
[2020-11-25 09:31] VITALS: BMI 26.8
== END 2021-03-18 23:59 ==
LOC: CR 08:00
PROVIDERS: PCP Student in an Organized Health Care Education/Training Program; Visit Provider Student in an Organized Health Care Education/Training Program
DX: Z00.00 Encounter for general adult medical examination without abnormal findings (principal)

== ENCOUNTER 2021-04-14 08:00 | Outpatient (RCR) | payer SELFPAY ==
[2020-11-25 09:31] VITALS: BMI 26.8
== END 2021-04-18 23:59 ==
LOC: CR 08:00
PROVIDERS: PCP Student in an Organized Health Care Education/Training Program; Visit Provider Student in an Organized Health Care Education/Training Program
DX: Z00.00 Encounter for general adult medical examination without abnormal findings (principal)

== ENCOUNTER 2021-05-17 08:00 | Outpatient (RCR) | payer SELFPAY ==
[2020-11-25 09:31] VITALS: BMI 26.8
== END 2021-05-18 23:59 ==
LOC: CR 08:00
PROVIDERS: PCP Student in an Organized Health Care Education/Training Program; Referring Provider Student in an Organized Health Care Education/Training Program; Visit Provider Student in an Organized Health Care Education/Training Program
DX: Z00.00 Encounter for general adult medical examination without abnormal findings (principal)

== ENCOUNTER → 2021-06-07 09:26 | Outpatient (CLI) | payer MEDICARE, OTHER, SELFPAY ==
[2021-05-26 09:58] VITALS: BMI 26.9
--- NOTE | 2021-06-07 09:28 | CDU_ITS ---
Reason For Study: Carotid stenosis Rt. Velocities/BP Lt. Velocities/BP Prox CCA 86.4/11.5 cm/sec. Prox CCA 94.8/17.9 cm/sec. Mid CCA 76.5/12.6 cm/sec. Mid CCA 78.3/14.6 cm/sec. Dist CCA 66.7/13.9 cm/sec. Dist CCA 71.7/17.9 cm/sec. Prox ICA 54.2/13.5 cm/sec. Prox ICA 128.4/20.6 cm/sec. Mid ICA 91.5/19 cm/sec. Mid ICA 101.1/20 cm/sec. Dist ICA 76.1/14.6 cm/sec. Dist ICA 96.2/22.5 cm/sec. Rt. ICA/CCA = 0.99. Lt. ICA/CCA = 1.64. Prox ECA 208/8.5 cm/sec. Prox ECA 176.2/7.2 cm/sec. Rt. Vert. 54.2/12.4 cm/sec. Lt. Vert. 86.3/17.6 cm/sec. Right Extracranial There is heterogeneous, smooth atherosclerotic plaque noted in the right common carotid artery. There is heterogeneous, irregular atherosclerotic plaque noted in the right internal carotid artery. There is heterogeneous, irregular atherosclerotic plaque noted in the right external carotid artery. Antegrade flow is noted in the right vertebral artery. Left Extracranial There is heterogeneous, irregular atherosclerotic plaque noted in the left common carotid artery. There is heterogeneous, irregular atherosclerotic plaque noted in the left internal carotid artery. The atherosclerotic plaque causes acoustic shadowing. There is no significant atherosclerotic plaque noted in the left external carotid artery. Antegrade flow is noted in the left vertebral artery. Procedure Carotid Duplex 85625. This is a Carotid Duplex examination using B-mode, color flow and specral Doppler. Exam performed in department. VL/Carotid Duplex Ultrasound Interpretation Summary Irregular calcific plaque at the proximal mid right internal carotid artery wit h less than 50% stenosis Greater than 50% stenosis right external carotid artery Dense calcific plaque at the proximal left internal carotid artery with 50 to 6 9% stenosis of the left internal carotid. Less than 50% stenosis left external carotid artery Patent and antegrade flow bilateral vertebral arteries Findings suggest slight progression of left internal carotid artery stenosis fr om a remote examination of June 16, 2014 Ordering Physician: Tico Montgomery Referring Physician: Rishi Vasquez Performed By: Jacquie French RVT
== END ==
PROVIDERS: PCP Student in an Organized Health Care Education/Training Program; Referring Provider Internal Medicine Cardiovascular Disease; Visit Provider Internal Medicine Cardiovascular Disease
DX: I65.23 Occlusion and stenosis of bilateral carotid arteries (principal)
CPT/HCPCS: 93880

== ENCOUNTER 2021-06-16 08:00 | Outpatient (RCR) | payer SELFPAY ==
[2020-11-25 09:31] VITALS: BMI 26.8
== END 2021-06-18 23:59 ==
LOC: CR 08:00
PROVIDERS: PCP Student in an Organized Health Care Education/Training Program; Referring Provider Student in an Organized Health Care Education/Training Program; Visit Provider Student in an Organized Health Care Education/Training Program
DX: Z00.00 Encounter for general adult medical examination without abnormal findings (principal)

== ENCOUNTER → 2021-06-28 07:44 | Outpatient (CLI) | payer MEDICARE, OTHER, SELFPAY ==
[2021-06-22 12:30] VITALS: BMI 26.3
[2021-06-28 08:53] LABS: Absolute Lymphocyte Count 1.58 X10^3/uL (0.83-4.51); Absolute Neutrophil Count 3.3 X10^3/uL (2.0-7.7); Basophil# 0.07 X10^3/uL; Basophil% 1.2 % (0-1); Eosinophils% 3.5 % (0-5); Hematocrit 38.1 % (37-47); Hemoglobin 12.3 g/dL (12.0-15.0); Lymphocyte # 1.58 X10^3/ul (0.83-4.51); Lymphocyte % 27.7 % (19-41); Mean Corp Hgb Conc 32.3 g/dL (32-36); Mean Corpuscular Hgb 30.1 pg (27.0-32.0); Mean Corpuscular Volume 93.4 fL (81-99); Mean Platelet Vol. 11.4 fl (6.2-12.0); Monocyte# 0.56 X10^3/uL; Monocyte% 9.8 % (0-10); NRBC Flagged by Analyzer 0 % (0-5); Neutrophil # 3.27 X10^3/uL (2.7-7.7); Neutrophil % 57.4 % (47-70); Platelet Count 185 K/mm3 (150-450); RBC Distribution Width CV 12.5 % (11.6-14.6); RBC Distribution Width SD 43.3 fl (35.1-43.9); Red Blood Count 4.08 M/mm3 (4.2-5.4); White Blood Count 5.7 K/mm3 (4.4-11.0)
[2021-06-28 09:05] LABS: Erythrocyte Sedimentation Rate 10 mm/hr (0-30)
[2021-06-28 09:18] LABS: CRP 3.23 mg/L (0.0-3.0)
== END ==
PROVIDERS: PCP Student in an Organized Health Care Education/Training Program; Referring Provider Podiatrist; Visit Provider Podiatrist
DX: M86.9 Osteomyelitis, unspecified (principal)
CPT/HCPCS: 36415; 85025; 85652; 86140

== ENCOUNTER → 2021-07-05 | Outpatient (CLI) | payer MEDICARE, OTHER, SELFPAY ==
[2021-06-22 12:30] VITALS: BMI 26.3
[2021-07-05 19:54] LABS: Probe Check PASS; Staph aureus DNA By PCR POSITIVE (Negative)
[2021-07-05 19:55] LABS: M R Staph aureus DNA By PCR POSITIVE (Negative)
== END | disposition home or self-care (01) ==
PROVIDERS: PCP Student in an Organized Health Care Education/Training Program; Visit Provider Podiatrist
DX: L03.116 Cellulitis of left lower limb (principal); B95.62 Methicillin resistant Staphylococcus aureus infection as the cause of diseases classified elsewhere
CPT/HCPCS: 87070; 87075; 87077; 87186; 87205; 87640

== ENCOUNTER 2021-07-19 08:00 | Outpatient (RCR) | payer SELFPAY ==
[2021-05-26 09:58] VITALS: BMI 26.9
== END 2021-07-19 23:59 ==
LOC: CR 08:00
PROVIDERS: PCP Student in an Organized Health Care Education/Training Program; Referring Provider Student in an Organized Health Care Education/Training Program; Visit Provider Student in an Organized Health Care Education/Training Program
DX: Z00.00 Encounter for general adult medical examination without abnormal findings (principal)

== ENCOUNTER 2021-07-29 05:53 | Day surgery (SDC) | payer MEDICARE, OTHER, SELFPAY ==
[2021-07-29] VITALS (7 sets, daily range): BP systolic 141–153; BP diastolic 54–63; PULSE 46–65; RESP 16–18; TEMP 36–36.4; O2SAT 96–99; BMI 27.3
[2021-07-29] MEDS: Lactated Ringers 1,000 ML 100 ML IV (06:41)
[2021-07-29 06:51] LABS: Bedside Glucose 134 mg/dL (70-110)
--- NOTE | 2021-07-29 07:24 | RAD_ITS ---
STUDY: X-RAY LEFT FOOT, SECOND TOE REASON FOR EXAM: Female, 71 years old. Amputation. TECHNIQUE: 3 view(s) of the toe were obtained. COMPARISON: 05/28/2020. FINDINGS: Normal visualized metatarsus. There is interval amputation of the second digit at the metatarsophalangeal joint. There is associated soft tissue abnormality. The liver adjacent digits appear unchanged. The soft tissue structures are unremarkable. RAD/Toe(s) Min 2 Views IMPRESSION: Amputation of the second digit at the metatarsophalangeal joint with soft tissue irregularity. Electronically Signed: Avelino Stephens DO at 17:38 EDT Tel [phone], Service support ,
--- NOTE | 2021-07-29 07:30 | BON_PTH ---
PATIENT: KIMBERLY NEWMAN LOC: [facility] [place] U#:[id number] AGE/SX: 71/F ROOM: RE07/29/[address]: Dr. Meeta Yoo DPM : 1950 BED: DIS: 07/29/2021 SPEC #: [id number] RECD: 07/29/21 14:48 STATUS: DALJIT REFaustina #: [id number] MARIELLE: 07/29/21 07:[address]: Meeta Yoo DEPT: SURGICAL PATHOLOGY RECD BY: Nelly Haque ENTERED: 08/01/21 09:17 SP TYPE: Bone OTHR DR: Dr. Rishi Vasquez, DO Tissues: Toe, NOS Procedures: Decalcification bone/plaque Surgery Specimen Level IV HEADER OPERATION: Amputation left toe, second PRE-OP DIAGNOSIS: Ulcers in second left toe TISSUE SUBMITTED: Left second toe soft tissue and bone MICROSCOPIC DIAGNOSIS Left second toe soft tissue and bone, amputation: Focal ulceration, acute inflammation and abscess formation. Underlying bone with acute osteomyelitis. SJ:bubba 08/04/2021 COMMENT Case has been reviewed in consultation with Dr. Lee who concurs with the above diagnosis. IDC:AM MICROSCOPIC DESCRIPTION Slides are reviewed. GROSS DESCRIPTION Received in fixative is one container labeled with the patient's name and designated left second toe bone and tissue. The specimen consists of a toe with attached bone and soft tissue measuring 4 x 2 x 1.5 cm. A nail is not present. A small area of ulceration is noted measuring 6 x 2 mm. The specimen is serially sectioned and totally submitted in four cassettes after decalcification. / AM:bubba 08/01/21 TC:2 CPT: 09902, 56578
[2021-07-29] MEDS: Lidocaine 1% (30 ml sdv) 30 ML Vial (07:33)
[2021-07-29] MEDS: Bupivacaine Mpf 0.5% 30 ML VIAL (07:33)
[2021-07-29] MEDS: Cefazolin 2 GM in 0.9% Normal Saline 100 ML IV (07:43)
--- NOTE | 2021-07-29 08:01 | EX.PCM.DISCH ---
Discharge Instructions Diet Discharge Diet: Carb Control Diet Activity Discharge Activity: May Shower (use shower bag ) Weight Bearing Status: Partial weight bearing Keep extremity elevated above heart level: Left Leg Dressing / Incision Call your doctor if your incision/area has: Continuous Slow Oozing, Sudden Increased Bleeding, Increased Pain/ Swelling, Increased Redness, Foul Smelling Discharge and Swelling at the incision site Call your doctor if you observe: Fever of 101 or Higher, Chest pain, Calf discomfort and Uncontrolled pain Remove Dressing in: do not remove dressing Cleanse incision/area with: Keep Dressing Clean & Dry Follow Up Care Please Follow Up With: Meeta Yoo DPM When: within [facility]. Call [phone] sooner if questions or concerns. Test Results: Test results from this visit will be discussed in further detail at your follow-up appointment, if applicable. Discharge Plan Admission Primary Reason for Your Visit: s/p left 2nd toe amputation Attending Provider: Meeta Yoo Primary Care Provider: Rishi Vasquez Instructions Additional Instructions / Restrictions: Heel weightbear left foot with surgical shoe. Pain medications are not recommended. Elevate surgical limb each hour. If you need to ice for pain control, apply to the back of the knee for no more than 15 min / hour and not to the surgical foot. Discharge Orders/Prescriptions Prescriptions: No Action clopidogrel 75 mg tablet 75 mg PO DAILY Qty: 90 RF: 3 metoprolol succinate 50 mg tablet extended release 24 hr 50 mg PO DAILY Qty: 90 RF: 3 metformin 500 mg tablet 500 mg PO DAILY RF: 0 Adult 50 Plus Probiotic 4 billion cell capsule 4,000 mmu cells PO BID RF: 0 aspirin 81 MG tablet 81 mg PO QHS RF: 0 gabapentin 300 MG capsule 300 mg PO TID RF: 0 lisinopril 40 MG tablet 40 mg PO DAILY RF: 0 multivitamin with folic acid 1 TABLET tablet 1 tab PO DAILY RF: 0 glimepiride 2 mg tablet 2 mg PO DAILY RF: 0 ascorbic acid (vitamin C) 500 mg tablet 1,000 mg PO LUNCH RF: 0 omega-3 fatty acids-fish oil 1 EACH capsule 1 ea PO DAILY RF: 0 cranberry extract 500 mg capsule 300 mg PO DINNER RF: 0 hydrochlorothiazide 25 MG tablet 25 mg PO DAILY RF: 0 ferrous sulfate 325 MG tablet 325 mg PO DAILY RF: 0 cholecalciferol (vitamin D3) 50 mcg (2,000 unit) capsule 1,000 unit PO DAILY RF: 0 PreserVision Lutein 226 mg-200 unit -5 mg-0.8 mg Capsule PO RF: 0 simvastatin 40 MG tablet 40 mg PO QHS RF: 0 estradiol 42.5 GM cream 1 dose VAGINAL SUTU PRN (Reason: VAGINAL HEALTH) RF: 0 amlodipine 10 mg tablet 10 mg PO DAILY Qty: 90 RF: 3 Referrals / Follow Up: Rishi Vasquez, [Primary Care Provider] - Disposition Disposition (needs filled in before D/C Order can be placed): Home, Self Care
--- NOTE | 2021-07-29 08:02 | PCM.OPRPT ---
Problems Associated Problem List Diagnoses (1) Chronic ulcer of left foot with necrosis of bone: (2) Osteomyelitis: Report of Operation Date of Procedure: 07/29/21 Pre-Operative Diagnosis: Chronic ulcer with osteomyelitis of the left second toe Post-Operative Diagnosis: Chronic ulcer with osteomyelitis of the left second toe Surgery/Procedure Performed:: Left second toe amputation Description of Surgical Findings:: Hemostasis: Well-padded pneumatic left ankle tourniquet, 250 mmHg, 6 minutes Materials: 3-0 Vicryl, 3-0 Prolene Specimen sent The patient tolerated the procedure and anesthesia well. The patient was transported to the PACU with vital signs stable and vascular status intact to the surgical limb. To ice and elevate for pain and inflammation management. Postoperative x-rays were reviewed prior to leaving the operating room. This demonstrated adequate second toe amputation without acute injuries or retained foreign body. No osseous destruction was seen at the site of amputation. Postoperative orders were entered electronically. Surgeon: Fredo,Meeta head of design: None (Vani Jaffe DPM, PGY3) Type of Anesthesia: Local (Preoperative: one-to-one mixture of 1% lidocaine plain and 0.5% Marcaine plain administered in left second ray block typical fashion, 8 cc) and MAC Specimen's removed: 1. Soft tissue and bone left second toe sent to pathology 2. Soft tissue and bone left second toe sent to microbiology (aerobic, anaerobic, acid-fast, fungal) Drains: None Estimated Blood Loss (mL): Minimal Description of Procedure: Indications: This 71-year-old female with significant past medical history of diabetes with peripheral neuropathy, small vessel vascular disease, coronary artery disease, chronic kidney disease, hypertension, retinopathy, thyroid nodules continues to have non-healing of her left second toe ulcer with progressive deterioration of the skin envelope and osteomyelitis. She has delayed healing of the ulcer site. There is also a concern of underlying osteomyelitis with positive probe to bone. The x-rays of the left foot demonstrate osteolysis of the remaining phalanx of the second toe (prior partial second toe amputation noted) compared to prior foot xrays. There is no acute fracture, dislocation, soft tissue emphysema, or foreign body. She has failed conservative care including offloading, traditional wound care, local cellulitis and infection management, rest, diabetic control. Cultures from clinic demonstrated MRSA growth and her condition has been stabilized with oral doxycycline. She has small vessel disease and this is noted. It is noted she also recently healed an ulcer on her second toe in the same foot in a timely manner. The preoperative indications, planned procedure, possible benefits, risks, anticipated healing time and management were discussed in detail with the patient. No guarantees were made. She understands complications and risks may include but are not limited to the following: delayed or nonhealing, pain, scarring, infection, need for revisional surgery, allergy, blood clot, loss of limb, function, life, transfer lesion or new ulcer formation. She understands COVID-19 is a current situation and her chronic ulcer is preventing her from performing her daily activities. She understands the inherent risks with the virus being present in the community and understands significant precautions are being taken to prevent communicable spread during her hospital session. She therefore elects to proceed forward with the procedure at this time. I answered all of her questions. The surgical consent and the surgical limb were signed. Her preoperative history and physical exam completed by her primary care physician including her clearance was reviewed in detail. The preoperative diagnostic data was also reviewed including labs and ekg. Procedure in detail: The patient was transferred to the operating room via cart and placed on the operating table in the supine position. Final verification of the patient, surgery, and limb designation were performed via the timeout procedure. IV MAC sedation was initiated by the anesthesia team and local anesthetic was administered by the podiatry team. Well-padded pneumatic left tourniquet was placed on the ankle. The left lower extremity was prepped and draped in the usual aseptic manner. Esmarch bandage was used to exsanguinate the limb and the tourniquet was inflated at this time. Surgery began as a following: Attention was first directed to the left second toe in which a fishmouth incision was made to allow for removal of the devitalized ulcer with nonviable skin and bone of the second toe. The toe was disarticulated at the metatarsophalangeal joint level. This was removed from the table and sent to pathology and microbiology as noted. There was no purulence deep necrosis or devitalized tissue. At the level of resection the second metatarsal head was firm to touch, white, and healthy in appearance. Additional biopsies were not obtained to avoid contamination of healthy proximal tissue. Copious saline irrigation was performed. Tendons were pulled to length and resected. The tourniquet was deflated at this time.There was no pulsatile bleeding and there was capillary refill time to the resected areas less than 3 seconds and also to the remaining digits. Minimal electrocauterization was utilized. The remaining tissue appeared to be healthy. Gentle no touch technique closure was used to reapproximate the surgical wound with 2-0 Vicryl for deep tissue reapproximation. Next the skin was gently reapproximated utilizing 3-0 Prolene with horizontal mattress suture technique. A postoperative dressing was applied with Betadine soaked Adaptic, gauze, and Kerlix. A postoperative x-ray was obtained with the mini C arm demonstrating adequate resection of part of the second toe in a complete manner. No acute injuries or foreign bodies were identified. After procedure: The patient tolerated the procedure and anesthesia well. She was transported to the PACU with vital signs stable and vascular status intact to left lower extremity. She was advised to keep her dressing clean, dry, and intact until follow-up this upcoming [facility]. She was advised to only put weight on her heel with her surgical shoe or CAM walker boot. She was advised to ice behind her knee if needed for pain. It is noted she has neuropathy and I do not anticipate a lot of pain with this procedure. She was advised to participate with intermittent dangling and elevation for pain control and edema management. Postoperative x-ray was reviewed as noted. Her postoperative orders were entered electronically. She will be discharged home. Meeta Yoo DPM, [facility] Grafts/Implants Used: None Complications None Admit VTE Documentation VTE Present on Admission: No VTE Mechan Device Prophylaxis: SCD's Reason prophylaxis not ordered:: Procedure Not Indicated
== END 2021-07-29 09:00 | disposition home or self-care (01) ==
LOC: SDC 05:55 → AC 05:55
PROVIDERS: PCP Student in an Organized Health Care Education/Training Program; Referring Provider Podiatrist; Visit Provider Podiatrist
PROC: (CPT 28820; principal; 2021-07-29 07:15)
DX: E11.69 Type 2 diabetes mellitus with other specified complication (principal); M86.172 Other acute osteomyelitis, left ankle and foot; L97.524 Non-pressure chronic ulcer of other part of left foot with necrosis of bone; N18.30 Chronic kidney disease, stage 3 unspecified; M86.672 Other chronic osteomyelitis, left ankle and foot; E11.22 Type 2 diabetes mellitus with diabetic chronic kidney disease; E11.621 Type 2 diabetes mellitus with foot ulcer; I12.9 Hypertensive chronic kidney disease with stage 1 through stage 4 chronic kidney disease, or unspecified chronic kidney disease; E78.5 Hyperlipidemia, unspecified; E11.51 Type 2 diabetes mellitus with diabetic peripheral angiopathy without gangrene; E11.42 Type 2 diabetes mellitus with diabetic polyneuropathy; Z79.899 Other long term (current) drug therapy; Z79.82 Long term (current) use of aspirin; Z79.84 Long term (current) use of oral hypoglycemic drugs; I25.10 Atherosclerotic heart disease of native coronary artery without angina pectoris; Z79.02 Long term (current) use of antithrombotics/antiplatelets; Z87.891 Personal history of nicotine dependence
CPT/HCPCS: 01480; 28820; 73660; 76000; 82962; 87015; 87070; 87075; 87102; 87116; 87205; 87206; 88305; 88311; J7120; J2405

== ENCOUNTER 2021-08-18 08:00 | Outpatient (RCR) | payer SELFPAY ==
[2021-07-20 00:23] VITALS: BMI 26.9
== END 2021-08-18 23:59 ==
LOC: CR 08:00
PROVIDERS: PCP Student in an Organized Health Care Education/Training Program; Referring Provider Student in an Organized Health Care Education/Training Program; Visit Provider Student in an Organized Health Care Education/Training Program
DX: Z00.00 Encounter for general adult medical examination without abnormal findings (principal)

== ENCOUNTER 2021-09-15 08:00 | Outpatient (RCR) | payer SELFPAY ==
[2021-08-19 00:18] VITALS: BMI 26.9
== END 2021-09-18 23:59 ==
LOC: CR 08:00
PROVIDERS: PCP Student in an Organized Health Care Education/Training Program; Referring Provider Student in an Organized Health Care Education/Training Program; Visit Provider Student in an Organized Health Care Education/Training Program
DX: Z00.00 Encounter for general adult medical examination without abnormal findings (principal)

== ENCOUNTER 2021-10-18 08:00 | Outpatient (RCR) | payer SELFPAY ==
[2021-09-19 00:14] VITALS: BMI 26.9
== END 2021-10-18 23:59 ==
LOC: CR 08:00
PROVIDERS: PCP Student in an Organized Health Care Education/Training Program; Referring Provider Student in an Organized Health Care Education/Training Program; Visit Provider Student in an Organized Health Care Education/Training Program
DX: Z00.00 Encounter for general adult medical examination without abnormal findings (principal)

== ENCOUNTER 2021-11-17 08:00 | Outpatient (RCR) | payer SELFPAY ==
[2021-10-19 00:19] VITALS: BMI 26.9
== END 2021-11-18 23:59 ==
LOC: CR 08:00
PROVIDERS: PCP Student in an Organized Health Care Education/Training Program; Referring Provider Student in an Organized Health Care Education/Training Program; Visit Provider Student in an Organized Health Care Education/Training Program
DX: Z00.00 Encounter for general adult medical examination without abnormal findings (principal)

== ENCOUNTER 2021-12-15 08:00 | Outpatient (RCR) | payer SELFPAY | END 2021-12-19 23:59 | LOC: CR 08:00 | PROVIDERS: PCP Student in an Organized Health Care Education/Training Program; Referring Provider Student in an Organized Health Care Education/Training Program; Visit Provider Student in an Organized Health Care Education/Training Program | DX: Z00.00 Encounter for general adult medical examination without abnormal findings (principal) ==

== ENCOUNTER 2022-01-10 08:00 | Outpatient (RCR) | payer SELFPAY | END 2022-01-16 23:59 | LOC: CR 08:00 | PROVIDERS: PCP Student in an Organized Health Care Education/Training Program; Referring Provider Student in an Organized Health Care Education/Training Program; Visit Provider Student in an Organized Health Care Education/Training Program | DX: Z00.00 Encounter for general adult medical examination without abnormal findings (principal) ==

== ENCOUNTER 2022-01-20 08:25 | Day surgery (SDC) | payer MEDICARE, OTHER, SELFPAY ==
--- NOTE | 2022-01-20 09:15 | HP.PCM_ITS ---
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: No Is patient in pain?: No Allergies Sulfa (Sulfonamide Antibiotics) Allergy (Verified 12/29/21 09:31) Unknown Medications aspirin 81 mg PO QHS 01/13/14 [History Confirmed 12/29/21] gabapentin 300 mg PO TID 01/13/14 [History Confirmed 12/29/21] lisinopril 40 mg PO DAILY 01/13/14 [History Confirmed 12/29/21] multivitamin with folic acid 1 tab PO DAILY 01/13/14 [History Confirmed 12/29/21] estradiol 1 dose VAGINAL SUTU PRN 05/31/16 [History Confirmed 12/29/21] simvastatin 40 mg PO QHS 05/31/16 [History Confirmed 12/29/21] omega-3 fatty acids-fish oil 1 ea PO DAILY 06/29/16 [History Confirmed 12/29/21] hydrochlorothiazide 25 mg PO DAILY 11/14/16 [History Confirmed 12/29/21] glimepiride 2 mg tablet 2 mg PO DAILY tab 07/29/18 [History Confirmed 12/29/21] ferrous sulfate 325 mg PO DAILY 08/15/18 [History Confirmed 12/29/21] cholecalciferol (vitamin D3) 50 mcg (2,000 unit) capsule 1,000 unit PO DAILY cap 10/05/20 [History Confirmed 12/29/21] cranberry extract 500 mg capsule 300 mg PO DINNER cap 10/05/20 [History Confirmed 12/29/21] lactobacillus combination no.9 4 billion cell capsule 4,000 mmu cells PO BID 10/05/20 [History Confirmed 12/29/21] metformin 500 mg tablet 500 mg PO DAILY 10/05/20 [History Confirmed 12/29/21] ascorbic acid (vitamin C) 500 mg tablet 1,000 mg PO LUNCH tab 11/25/20 [History Confirmed 12/29/21] amlodipine 10 mg tablet 10 mg PO DAILY #90 tab 01/28/21 [Rx Confirmed 12/29/21] vit C-vit [id number]-[id number] [PreserVision Lutein] cap PO 07/29/21 [History Confirmed 12/29/21] clopidogrel 75 mg tablet 75 mg PO DAILY #90 tab 11/15/21 [Rx Confirmed 12/29/21] metoprolol succinate 50 mg tablet,extended release 24 hr 50 mg PO DAILY #90 tab 11/21/21 [Rx Confirmed 12/29/21] acetaminophen 325 mg capsule 325 mg PO ONCE PRN 12/29/21 [History Confirmed 12/29/21] calcium carbonate 600 mg calcium (1,500 mg) tablet 600 mg PO DAILY 12/29/21 [History Confirmed 12/29/21] docusate sodium 100 mg capsule 100 mg PO BID 12/29/21 [History Confirmed 12/29/21] [facility] Medical History (Updated 12/29/21 @ 09:[address] Kwaku Moscoso MD) Arthritis Atherosclerosis of coronary artery of [place] heart without angina pectoris Cardiology follow-up encounter Carotid artery stenosis Chronic kidney disease, stage 3 Chronic osteomyelitis of left foot Chronic ulcer of left foot with fat layer exposed Chronic ulcer of left foot with necrosis of bone Delayed wound healing Depression Diabetes mellitus with polyneuropathy Dietary restriction DM2 (diabetes mellitus, type 2) Easy bruising Essential hypertension Former smoker Hallux valgus (acquired), right foot Hammer toe of left foot Hammer toe of second toe of left foot Healed ulcer of left foot on examination High cholesterol History of torn meniscus of left knee Hyperlipidemia Hypertension Low iron Malnutrition Methicillin resistant Staphylococcus aureus infection Neuropathy Non-healing ulcer of right foot Osteomyelitis Osteomyelitis of foot Peripheral vascular occlusive disease Post-menopausal Skin lesion Wears dentures Surgical History amputation left toe History of angioplasty of peripheral vessel (~2012) History of left heart catheterization (~01/20/14) History of repair of left rotator cuff History of total left knee replacement (~2014) Family History (Updated 12/29/21 @ 09:28 by Jana Sunday) Father CAD (coronary artery disease) Heart disease Hypertension CVA (cerebral vascular accident) Social History Smoking Status: Former smoker how long ago did patient quit smokin years ago alcohol intake: never substance use type: does not use caffeine: No HPI HPI HPI: KIMBERLY NEWMAN, is a 71 F who presents to the office today for surgical consultation regarding possible colonoscopy. The patient is referred by Dr. Rishi Vasquez for screening examination and a written copy of my surgical consult and recommendations will return to her. Her previous colonoscopy was 2016. Unfortunately not able to get copy of those results. She states that currently she has no abdominal pain no bright red blood per rectum no melena. She has had further problems with her lower extremities and due to toe deformities she is required amputation of toes of her left foot. She claims however that she has been able to heal those amputation sites. She denies family history of colon cancer She states that her weight has been stable particularly over the last 2 to 3 years ROS General General: Yes fatigue; No weight change, appetite, colon cancer, breast cancer or weakness HEENT HEENT: Yes difficulty swallowing and eye surgery; No eye injury, swollen glands or hoarseness Endo Endocrine: Yes diabetes mellitus; No thyroid disease, thyroid cancer, Hair loss, heat intolerance or cold intolerance Skin Skin: No rash or changing moles Musc Musculoskeletal: Yes back problems and arthritis; No rheumatoid arthritis, gout or joint pain Cardio Cardiovascular: Yes heart disease and high blood pressure; No murmur, pacemaker, atrial fibrillation, heart attack, heart stent, palpitations, shortness of breat with exertion or chest pain Psych Psychiatric: No depression, anxiety or hearing voices Resp Respiratory: No shortness of breath, No sleep apnea, No cough, No COPD, No asthma, No emphysema and No wheezing Gastro Gastrointestinal: No abdominal pain, No nausea or vomiting, No diarrhea, No constipation, No blood in stool, No acid reflux, No hemorrhoids, No ulcers, No gallbladder problem and No black,tarry stools [place] Hematologic: Yes blood thinners, No blood disorders, No bleeding, No anemia and No blood clots Additional Details: Plavix, ASA Neuro Neurologic: No system reviewed and no additional complaints, except as documented, No as per HPI, No abnormal gait, No abnormal hearing, No abnormal movements, No abnormal speech, No behavioral changes, No burning sensations, No confusion, No convulsions, No disequilibrium, No dizziness, No localized weakness, No frequent falls, No headache(s), No lack of coordination, No loss of vision, No memory loss, No numbness, No other visual disturbances, No radicular pain, No restless legs, No sensory deficit, No syncope, No tingling, No tremor(s), No weakness and No other Exam Const General: cooperative, comfortable and no acute distress Nutritional Appearance: overweight Orientation: alert and awake [facility] Head: normal to inspection Eyes General: appearance normal, both eyes and all related structures Chest Chest palpation & inspection: normal inspection of the chest Resp Effort & Inspection: normal respiratory effort Auscultation: clear to auscultation bilaterally Cardio Rate: regular rate Rhythm: regular rhythm GI Palpation: soft Other: Nontender, normal bowel sounds, Neuro General: patient alert, patient awake and patient oriented x3 Extrem General: no calf tenderness bilaterally Psych Appearance: grossly normal Assessment and Plan Assessment and Plan (1) Personal history of colonic polyps: Status: Acute Plan - Dr. Kwaku Moscoso MD: Greater than 5 years since her last colonoscopy in a patient has a personal history of tubular adenoma of the colon. I recommended the patient a colonoscopy with possible biopsy or polypectomy as indicated. She is on both aspirin and Plavix therapy and that is for both cardiac and peripheral vascular disease. I will have her continue her aspirin therapy. We will have her hold her clopidogrel just 2 days preprocedure. She is aware that she may resume both of those medications on the day of her procedure and subsequent to the procedure barring any complications. She has had an opportunity to ask and have questions answered. We will schedule and expedite her care. I appreciate the ongoing opportunity of assisting with her surgical care. Copy: Dr. Rishi Moscoso M.D., F.A.C.S. I have re-examined the patient. There are no clinical changes since date of exam.
[2022-01-20 10:27] VITALS: BP 153/59; BP 89/45; PULSE 78; RESP 16; TEMP 36.3; O2SAT 99
[2022-01-20 10:30] VITALS: BP 105/55; BP 153/59; PULSE 75; RESP 16; O2SAT 97
--- NOTE | 2022-01-20 10:30 | OP.COLON_ITS ---
Patient Name: Gely Fuller Procedure Date: 01/20/2022 9:55 AM Date of : 1950 Age: 71 Procedure: Colonoscopy Indications: High risk colon cancer surveillance: Personal history of colonic polyps Providers: Kwaku Mosocso MD Referring MD: Rishi Vasquez Medicines: See the Anesthesia note for documentation of the administered medications Patient Profile: Last Colonoscopy: date unknown. Complications: No immediate complications. Procedure: Pre-Anesthesia Assessment: - Prior to the procedure, a History and Physical was performed, and patient medications and allergies were reviewed. The patient's tolerance of previous anesthesia was also reviewed. The risks and benefits of the procedure and the sedation options and risks were discussed with the patient. All questions were answered, and informed consent was obtained. Prior Anticoagulants: The patient has taken no previous anticoagulant or antiplatelet agents. ASA Grade Assessment: II - A patient with mild systemic disease. After reviewing the risks and benefits, the patient was deemed in satisfactory condition to undergo the procedure. After I obtained informed consent, the scope was passed under direct vision. Throughout the procedure, the patient's blood pressure, pulse, and oxygen saturations were monitored continuously. The pediatric colonoscope was introduced through the anus and advanced to the cecum, identified by appendiceal orifice and ileocecal valve. The colonoscopy was performed without difficulty. The patient tolerated the procedure well. The quality of the bowel preparation was good. The ileocecal valve and the appendiceal orifice were photographed. Scope In: 10:06:33 AM Scope Withdrawal Time 0 hours 6 minutes 22 seconds Scope Out: 10:21:46 AM Total Procedure Duration Time 0 hours 15 minutes 13 seconds Findings: The digital rectal exam findings include non-thrombosed external hemorrhoids, non-thrombosed internal hemorrhoids and internal hemorrhoids that prolapse with straining, but require manual replacement into the anal canal (Grade III). Multiple diverticula were found in the sigmoid colon. Impression: - Non-thrombosed external hemorrhoids, non-thrombosed internal hemorrhoids and internal hemorrhoids that prolapse with straining, but require manual replacement into the anal canal (Grade III) found on digital rectal exam. - Diverticulosis in the sigmoid colon. - No specimens collected. Recommendation: - Discharge patient to home. - Resume previous diet. - Continue present medications. - Repeat colonoscopy in 10 years for screening purposes. Procedure Code(s): --- Professional --- 22756, Colonoscopy, flexible; diagnostic, including collection of specimen(s) by brushing or washing, when performed (separate procedure) Diagnosis Code(s): --- Professional --- Z86.010, Personal history of colonic polyps K64.2, Third degree hemorrhoids K64.4, Residual hemorrhoidal skin tags K57.30, Diverticulosis of large intestine without perforation or abscess without bleeding CPT copyright 2017 [employer]. All rights reserved. The codes documented in this report are preliminary and upon channel program manager review may be revised to meet current compliance requirements. Kwaku Moscoso MD 01/20/2022 10:29:13 AM This report has been signed electronically. Number of Addenda: 0 Note Initiated On: 01/20/2022 9:55 AM
--- NOTE | 2022-01-20 10:30 | OP.CCLET_ITS ---
01/20/2022 Rishi Vasquez [address] [place] [address] Re : Colonoscopy procedure for Gely Jonny Dear Dr. Vasquez This procedure was performed on Thursday, January 20, 2022. My impressions and recommendations are as follows: Impressions : - Non-thrombosed external hemorrhoids, non-thrombosed internal hemorrhoids and internal hemorrhoids that prolapse with straining, but require manual replacement into the anal canal (Grade III) found on digital rectal exam. - Diverticulosis in the sigmoid colon. - No specimens collected. Recommendations : - Discharge patient to home. - Resume previous diet. - Continue present medications. - Repeat colonoscopy in 10 years for screening purposes. My findings are described in the full procedure note, which is enclosed. If I can be of further assistance, please feel free to contact me at Doctor phone number(s): Work: . Sincerely, Kwaku Moscoso MD 01/20/2022 10:29:13 AM This report has been signed electronically.
[2022-01-20 10:35] VITALS: BP 116/90; BP 153/59; PULSE 74; RESP 16; O2SAT 97
[2022-01-20 10:40] VITALS: BP 121/53; BP 153/59; PULSE 79; RESP 16; O2SAT 97
[2022-01-20 10:42] VITALS: BP 123/56; BP 153/59; PULSE 75; RESP 16; TEMP 36.4; O2SAT 98
[2022-01-20 10:49] VITALS: BP 153/59
[2022-01-20 13:05] LABS: Bedside Glucose 163 mg/dL (74-106)
== END 2022-01-20 23:59 | disposition home or self-care (01) ==
LOC: EN 08:26 → AC 08:31
PROVIDERS: PCP Student in an Organized Health Care Education/Training Program; Referring Provider Student in an Organized Health Care Education/Training Program; Visit Provider Surgery
PROC: 0DJD8ZZ Inspection of Lower Intestinal Tract, Via Natural or Artificial Opening Endoscopic (ICD-10-PCS; CPT 45378; principal; 2022-01-20 09:25)
DX: K64.2 Third degree hemorrhoids (principal); E11.22 Type 2 diabetes mellitus with diabetic chronic kidney disease; E11.42 Type 2 diabetes mellitus with diabetic polyneuropathy; N18.30 Chronic kidney disease, stage 3 unspecified; K64.4 Residual hemorrhoidal skin tags; I25.10 Atherosclerotic heart disease of native coronary artery without angina pectoris; Z79.84 Long term (current) use of oral hypoglycemic drugs; E78.00 Pure hypercholesterolemia, unspecified; K57.30 Diverticulosis of large intestine without perforation or abscess without bleeding; I12.9 Hypertensive chronic kidney disease with stage 1 through stage 4 chronic kidney disease, or unspecified chronic kidney disease; Z87.891 Personal history of nicotine dependence; Z86.010 Personal history of colon polyps; Z79.82 Long term (current) use of aspirin; Z79.899 Other long term (current) drug therapy
CPT/HCPCS: 45378; 82962; J7120; J2405

== ENCOUNTER 2022-02-16 08:00 | Outpatient (RCR) | payer SELFPAY | END 2022-02-16 23:59 | disposition home or self-care (01) | LOC: CR 08:00 | PROVIDERS: PCP Student in an Organized Health Care Education/Training Program; Referring Provider Student in an Organized Health Care Education/Training Program; Visit Provider Student in an Organized Health Care Education/Training Program | DX: Z00.00 Encounter for general adult medical examination without abnormal findings (principal) ==

== ENCOUNTER 2022-03-16 08:00 | Outpatient (RCR) | payer SELFPAY | END 2022-03-18 23:59 | LOC: CR 08:00 | PROVIDERS: PCP Student in an Organized Health Care Education/Training Program; Referring Provider Student in an Organized Health Care Education/Training Program; Visit Provider Student in an Organized Health Care Education/Training Program | DX: Z00.00 Encounter for general adult medical examination without abnormal findings (principal) ==

== ENCOUNTER 2022-04-18 08:00 | Outpatient (RCR) | payer SELFPAY | END 2022-04-18 23:59 | LOC: CR 08:00 | PROVIDERS: PCP Student in an Organized Health Care Education/Training Program; Referring Provider Student in an Organized Health Care Education/Training Program; Visit Provider Student in an Organized Health Care Education/Training Program | DX: Z00.00 Encounter for general adult medical examination without abnormal findings (principal) ==

== ENCOUNTER 2022-05-18 08:00 | Outpatient (RCR) | payer SELFPAY | END 2022-05-18 23:59 | LOC: CR 08:00 | PROVIDERS: PCP Student in an Organized Health Care Education/Training Program; Referring Provider Student in an Organized Health Care Education/Training Program; Visit Provider Student in an Organized Health Care Education/Training Program | DX: Z00.00 Encounter for general adult medical examination without abnormal findings (principal) ==

== ENCOUNTER 2022-06-15 08:00 | Outpatient (RCR) | payer SELFPAY | END 2022-06-18 23:59 | LOC: CR 08:00 | PROVIDERS: PCP Student in an Organized Health Care Education/Training Program; Referring Provider Student in an Organized Health Care Education/Training Program; Visit Provider Student in an Organized Health Care Education/Training Program | DX: Z00.00 Encounter for general adult medical examination without abnormal findings (principal) ==

== ENCOUNTER → 2022-06-22 | Outpatient (CLI) | payer MEDICARE, OTHER, SELFPAY ==
--- NOTE | 2022-06-22 09:27 | CDU_ITS ---
Reason For Study: Carotid artery stenosis Rt. Velocities/BP Lt. Velocities/BP Prox CCA 76/9.5 cm/sec. Prox CCA 77.7/13.9 cm/sec. Mid CCA 72.1/13.4 cm/sec. Mid CCA 66.7/10.2 cm/sec. Dist CCA 68.2/10.8 cm/sec. Dist CCA 82.6/15.1 cm/sec. Prox ICA 61.8/13.9 cm/sec. Prox ICA 141.1/20.4 cm/sec. Mid ICA 110.4/35.8 cm/sec. Mid ICA 99.4/22.6 cm/sec. Dist ICA 90.7/24.8 cm/sec. Dist ICA 91.3/23.7 cm/sec. Rt. ICA/CCA = 1.53. Lt. ICA/CCA = 1.82. Prox ECA 182.1/6 cm/sec. Prox ECA 192.5/11.1 cm/sec. Rt. Vert. 48.3/15.1 cm/sec. Lt. Vert. 69.1/20 cm/sec. Right Extracranial There is heterogeneous, irregular atherosclerotic plaque noted in the right common carotid artery. There is heterogeneous, irregular atherosclerotic plaque noted in the right internal carotid artery. There is heterogeneous, irregular atherosclerotic plaque noted in the right external carotid artery. Antegrade flow is noted in the right vertebral artery. Left Extracranial There is heterogeneous, irregular atherosclerotic plaque noted in the left common carotid artery. There is heterogeneous, irregular atherosclerotic plaque noted in the left internal carotid artery. The atherosclerotic plaque causes acoustic shadowing. There is heterogeneous, irregular atherosclerotic plaque noted in the left external carotid artery. Antegrade flow is noted in the left vertebral artery. Procedure Carotid Duplex 78227. This is a Carotid Duplex examination using B-mode, color flow and specral Doppler. Exam performed in department. VL/Carotid Duplex Ultrasound Interpretation Summary Irregular calcific plaque at the proximal right internal carotid artery with le ss than 50% stenosis Less than 50% stenosis right external carotid artery Irregular calcific plaque with shadowing at the proximal left internal carotid artery with 50 to 69% stenosis Less than 50% stenosis left external carotid artery Patent antegrade vertebral arteries bilaterally Findings appear to be similar to the previous study of June 07, 2021 Ordering Physician: Kwaku Moscoso Referring Physician: Rishi Vasquez Performed By: Jacquie French RVT
== END | disposition home or self-care (01) ==
LOC: CVS 09:26
PROVIDERS: PCP Student in an Organized Health Care Education/Training Program; Referring Provider Surgery; Visit Provider Surgery
DX: I65.23 Occlusion and stenosis of bilateral carotid arteries (principal)
CPT/HCPCS: 93880

== ENCOUNTER 2022-07-18 08:00 | Outpatient (RCR) | payer SELFPAY | END 2022-07-19 23:59 | LOC: CR 08:00 | PROVIDERS: PCP Student in an Organized Health Care Education/Training Program; Referring Provider Student in an Organized Health Care Education/Training Program; Visit Provider Student in an Organized Health Care Education/Training Program | DX: Z00.00 Encounter for general adult medical examination without abnormal findings (principal) ==

== ENCOUNTER 2022-08-17 08:00 | Outpatient (RCR) | payer SELFPAY | END 2022-08-18 23:59 | LOC: CR 08:00 | PROVIDERS: PCP Student in an Organized Health Care Education/Training Program; Referring Provider Student in an Organized Health Care Education/Training Program; Visit Provider Student in an Organized Health Care Education/Training Program | DX: Z00.00 Encounter for general adult medical examination without abnormal findings (principal) ==

== ENCOUNTER 2022-09-14 08:00 | Outpatient (RCR) | payer SELFPAY | END 2022-09-18 23:59 | LOC: CR 08:00 | PROVIDERS: PCP Student in an Organized Health Care Education/Training Program; Referring Provider Student in an Organized Health Care Education/Training Program; Visit Provider Student in an Organized Health Care Education/Training Program | DX: Z00.00 Encounter for general adult medical examination without abnormal findings (principal) ==

== ENCOUNTER 2022-10-17 08:00 | Outpatient (RCR) | payer SELFPAY | END 2022-10-18 23:59 | LOC: CR 08:00 | PROVIDERS: PCP Student in an Organized Health Care Education/Training Program; Referring Provider Student in an Organized Health Care Education/Training Program; Visit Provider Student in an Organized Health Care Education/Training Program | DX: Z00.00 Encounter for general adult medical examination without abnormal findings (principal) ==

== ENCOUNTER → 2022-10-27 | Outpatient (CLI) | payer MEDICARE, OTHER, SELFPAY ==
--- NOTE | 2022-10-27 10:55 | ART_ITS ---
Reason For Study: PVD Procedure A bilateral lower extremity continuous wave Doppler with analog waveform analysis,segmental pressures,and ankle brachial indexes without exercise. Did not exercise patient on treadmill due to bad knee and surgical shoe. Left Segmental Pressures Left brachial= 171mmHg. Left thigh = 118mmHg. Left calf = 103mmHg. Left posterior tibial artery = 128mmHg. Left dorsalis pedis artery = 97mmHg. Left digit = 71 mmHg. The left dorsalis pedis waveforms are monophasic. The left posterior tibial artery waveforms are monophasic. Right Segmental Pressures Right brachial= 173mmHg. Right thigh = 119mmHg. Right calf = 88mmHg. Right posterior tibial artery = 77mmHg. Right dorsalis pedis artery = 97mmHg. Right digit = 86 mmHg. The right dorsalis pedis waveforms are monophasic. The right posterior tibial artery waveforms are monophasic. Indices The right ankle brachial index by the dorsalis pedis is 0.56. The right ankle brachial index by the posterior tibial artery is 0.45. The right digital-brachial index is 0.50. The left ankle brachial index by the dorsalis pedis is 0.56. The left ankle brachial index by the posterior tibial artery is 0.74. The left digital-brachial index is 0.41. VL/Lower Ext Art Exam w/o Exercis Interpretation Summary Right JEFFREY 0.56, moderate arterial insufficiency. Doppler/PVR waveforms and segm ental pressures reveal [id number] and distal SFA/popliteal disease. Left JEFFREY 0.74, moderate arterial insufficiency. Doppler/PVR waveforms and segme ntal pressures reveal [id number] disease. Ordering Physician: Brandon Membreno Referring Physician: Rishi Vasquez Performed By: Jacquie French RVT
== END | disposition home or self-care (01) ==
LOC: CVS 10:52
PROVIDERS: PCP Student in an Organized Health Care Education/Training Program; Visit Provider Podiatrist
DX: I73.9 Peripheral vascular disease, unspecified (principal)
CPT/HCPCS: 93923

== ENCOUNTER 2022-11-16 08:00 | Outpatient (RCR) | payer SELFPAY | END 2022-11-18 23:59 | LOC: CR 08:00 | PROVIDERS: PCP Student in an Organized Health Care Education/Training Program; Referring Provider Student in an Organized Health Care Education/Training Program; Visit Provider Student in an Organized Health Care Education/Training Program | DX: Z00.00 Encounter for general adult medical examination without abnormal findings (principal) ==

== ENCOUNTER 2022-12-19 08:00 | Outpatient (RCR) | payer SELFPAY | END 2022-12-19 23:59 | LOC: CR 08:00 | PROVIDERS: PCP Student in an Organized Health Care Education/Training Program; Visit Provider Student in an Organized Health Care Education/Training Program | DX: Z00.00 Encounter for general adult medical examination without abnormal findings (principal) ==

== ENCOUNTER 2023-01-16 08:00 | Outpatient (RCR) | payer SELFPAY | END 2023-01-16 23:59 | LOC: CR 08:00 | PROVIDERS: PCP Student in an Organized Health Care Education/Training Program; Visit Provider Student in an Organized Health Care Education/Training Program | DX: Z00.00 Encounter for general adult medical examination without abnormal findings (principal) ==

== ENCOUNTER 2023-02-15 08:00 | Outpatient (RCR) | payer SELFPAY | END 2023-02-16 23:59 | LOC: CR 08:00 | PROVIDERS: PCP Student in an Organized Health Care Education/Training Program; Visit Provider Student in an Organized Health Care Education/Training Program | DX: Z00.00 Encounter for general adult medical examination without abnormal findings (principal) ==

== ENCOUNTER 2023-03-15 08:00 | Outpatient (RCR) | payer SELFPAY | END 2023-03-18 23:59 | LOC: CR 08:00 | PROVIDERS: PCP Student in an Organized Health Care Education/Training Program; Visit Provider Student in an Organized Health Care Education/Training Program | DX: Z00.00 Encounter for general adult medical examination without abnormal findings (principal) ==

== ENCOUNTER 2023-04-17 08:00 | Outpatient (RCR) | payer SELFPAY | END 2023-04-18 23:59 | LOC: CR 08:00 | PROVIDERS: PCP Student in an Organized Health Care Education/Training Program; Referring Provider Student in an Organized Health Care Education/Training Program; Visit Provider Student in an Organized Health Care Education/Training Program | DX: Z00.00 Encounter for general adult medical examination without abnormal findings (principal) ==

== ENCOUNTER 2023-05-17 08:00 | Outpatient (RCR) | payer SELFPAY | END 2023-05-18 23:59 | LOC: CR 08:00 | PROVIDERS: PCP Student in an Organized Health Care Education/Training Program; Referring Provider Student in an Organized Health Care Education/Training Program; Visit Provider Student in an Organized Health Care Education/Training Program | DX: Z00.00 Encounter for general adult medical examination without abnormal findings (principal) ==

== ENCOUNTER → 2023-06-12 | Outpatient (CLI) | payer MEDICARE, SELFPAY ==
--- NOTE | 2023-06-12 08:51 | CDU_ITS ---
Reason For Study: Carotid Stenosis Rt. Velocities/BP Lt. Velocities/BP Prox CCA 101.6/15.7 cm/sec. Prox CCA 110.7/21.2 cm/sec. Mid CCA 74.2/12.1 cm/sec. Mid CCA 70.5/15.7 cm/sec. Dist CCA 71.0/16.0 cm/sec. Dist CCA 72.3/19.4 cm/sec. Prox ICA 95.2/27.0 cm/sec. Prox ICA 132.6/15.7 cm/sec. Mid ICA 107.0/32.1 cm/sec. Mid ICA 118.0/24.8 cm/sec. Dist ICA 82.1/24.0 cm/sec. Dist ICA 85.1/24.8 cm/sec. Rt. ICA/CCA = 1.4. Lt. ICA/CCA = 1.9. Prox ECA 201.4/7.4 cm/sec. Prox ECA 229.9/14.1 cm/sec. Rt. Vert. 49.4/18.0 cm/sec. Lt. Vert. 88.8/21.2 cm/sec. Right Extracranial There is heterogeneous, irregular atherosclerotic plaque noted in the right common carotid artery. There is heterogeneous, irregular atherosclerotic plaque noted in the right internal carotid artery. There is heterogeneous, irregular atherosclerotic plaque noted in the right external carotid artery. Antegrade flow is noted in the right vertebral artery. Left Extracranial There is heterogeneous, irregular atherosclerotic plaque noted in the left common carotid artery. There is heterogeneous, irregular atherosclerotic plaque noted in the left internal carotid artery. The atherosclerotic plaque causes acoustic shadowing. There is heterogeneous, irregular atherosclerotic plaque noted in the left external carotid artery. Antegrade flow is noted in the left vertebral artery. Procedure Carotid Duplex 22599. This is a Carotid Duplex examination using B-mode, color flow and specral Doppler. The exam was diagnostic. Exam performed in department. VL/Carotid Duplex Ultrasound Interpretation Summary Irregular calcific plaque in the proximal right internal carotid artery with le ss than 50% stenosis Greater than 50% stenosis right external carotid artery Irregular calcific plaque with shadowing at the proximal left internal carotid artery with 50 to 69% stenosis Greater than 50% stenosis left external carotid artery Patent and antegrade vertebral arteries bilaterally Since June 22, 2022 there is been progression of disease in bilateral external carotid arteries Ordering Physician: Kwaku Moscoso Referring Physician: Rishi Israel Performed By: Tigre Tatum RVT
== END | disposition home or self-care (01) ==
PROVIDERS: PCP Student in an Organized Health Care Education/Training Program; Referring Provider Surgery; Visit Provider Surgery
DX: I65.23 Occlusion and stenosis of bilateral carotid arteries (principal)
CPT/HCPCS: 93880

== ENCOUNTER 2023-06-14 08:00 | Outpatient (RCR) | payer SELFPAY | END 2023-06-18 23:59 | LOC: CR 08:00 | PROVIDERS: PCP Student in an Organized Health Care Education/Training Program; Referring Provider Student in an Organized Health Care Education/Training Program; Visit Provider Student in an Organized Health Care Education/Training Program | DX: Z00.00 Encounter for general adult medical examination without abnormal findings (principal) ==

== ENCOUNTER 2023-07-19 08:00 | Outpatient (RCR) | payer SELFPAY | END 2023-07-19 23:59 | LOC: CR 08:00 | PROVIDERS: PCP Student in an Organized Health Care Education/Training Program; Referring Provider Student in an Organized Health Care Education/Training Program; Visit Provider Student in an Organized Health Care Education/Training Program | DX: Z00.00 Encounter for general adult medical examination without abnormal findings (principal) ==

== ENCOUNTER → 2023-07-26 | Outpatient (CLI) | payer MEDICARE, SELFPAY | END | disposition home or self-care (01) | LOC: LABSPEC 07-27 11:17 | PROVIDERS: PCP Student in an Organized Health Care Education/Training Program; Visit Provider Podiatrist | DX: L97.522 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 foot with fat layer exposed (principal) | CPT/HCPCS: 87070; 87075; 87077; 87186; 87205 ==

== ENCOUNTER 2023-08-16 08:00 | Outpatient (RCR) | payer SELFPAY | END 2023-08-18 23:59 | LOC: CR 08:00 | PROVIDERS: PCP Student in an Organized Health Care Education/Training Program; Referring Provider Student in an Organized Health Care Education/Training Program; Visit Provider Student in an Organized Health Care Education/Training Program | DX: L97.522 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 foot with fat layer exposed | CPT/HCPCS: 87070; 87075; 87077; 87186; 87205 ==

== ENCOUNTER → 2023-08-16 | Outpatient (CLI) | payer MEDICARE, SELFPAY | END | disposition home or self-care (01) | LOC: LAB 09-03 15:54 | PROVIDERS: PCP Student in an Organized Health Care Education/Training Program; Referring Provider Podiatrist; Visit Provider Podiatrist | DX: L97.522 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 foot with fat layer exposed (principal) | CPT/HCPCS: 87070; 87075; 87077; 87186; 87205 ==

== ENCOUNTER 2023-09-18 08:00 | Outpatient (RCR) | payer SELFPAY | END 2023-09-18 23:59 | LOC: CR 08:00 | PROVIDERS: PCP Student in an Organized Health Care Education/Training Program; Referring Provider Student in an Organized Health Care Education/Training Program; Visit Provider Student in an Organized Health Care Education/Training Program | DX: Z00.00 Encounter for general adult medical examination without abnormal findings (principal) ==

== ENCOUNTER 2023-10-18 08:00 | Outpatient (RCR) | payer SELFPAY | END 2023-10-18 23:59 | LOC: CR 08:00 | PROVIDERS: PCP Student in an Organized Health Care Education/Training Program; Referring Provider Student in an Organized Health Care Education/Training Program; Visit Provider Student in an Organized Health Care Education/Training Program | DX: Z00.00 Encounter for general adult medical examination without abnormal findings (principal) ==

== ENCOUNTER 2023-11-15 08:00 | Outpatient (RCR) | payer SELFPAY | END 2023-11-18 23:59 | LOC: CR 08:00 | PROVIDERS: PCP Student in an Organized Health Care Education/Training Program; Referring Provider Student in an Organized Health Care Education/Training Program; Visit Provider Student in an Organized Health Care Education/Training Program | DX: Z00.00 Encounter for general adult medical examination without abnormal findings (principal) ==

== ENCOUNTER 2023-12-18 08:00 | Outpatient (RCR) | payer SELFPAY | END 2023-12-19 23:59 | LOC: CR 08:00 | PROVIDERS: PCP Student in an Organized Health Care Education/Training Program; Visit Provider Student in an Organized Health Care Education/Training Program | DX: Z00.00 Encounter for general adult medical examination without abnormal findings (principal) ==

== ENCOUNTER 2024-01-17 08:00 | Outpatient (RCR) | payer SELFPAY | END 2024-01-17 23:59 | LOC: CR 08:00 | PROVIDERS: PCP Student in an Organized Health Care Education/Training Program; Referring Provider Student in an Organized Health Care Education/Training Program; Visit Provider Student in an Organized Health Care Education/Training Program | DX: Z00.00 Encounter for general adult medical examination without abnormal findings (principal) ==

== ENCOUNTER 2024-02-14 08:00 | Outpatient (RCR) | payer SELFPAY | END 2024-02-17 23:59 | LOC: CR 08:00 | PROVIDERS: PCP Student in an Organized Health Care Education/Training Program; Referring Provider Student in an Organized Health Care Education/Training Program; Visit Provider Student in an Organized Health Care Education/Training Program | DX: Z00.00 Encounter for general adult medical examination without abnormal findings (principal) ==

== ENCOUNTER → 2024-03-11 | Outpatient (CLI) | payer MEDICARE, SELFPAY ==
--- NOTE | 2024-03-11 09:12 | ECHOD_ITS ---
Reason For Study: Murmur Procedure This was a 2D Doppler, Color Flow transthoracic echocardiogram. Exam performed in department. Left Ventricle Normal LV size. The estimated ejection fraction is 60 %. Unable to assess diastolic dysfunction. No regional wall motion abnormalities noted. Right Ventricle Normal RV size. Normal systolic function. Atria Normal left atrium. Normal right atrium. No doppler evidence for ASD. Mitral Valve There is moderate mitral annular calcification. There is no mitral valve stenosis. Trivial mitral valve insufficiency. Tricuspid Valve There is no tricuspid stenosis. Unable to estimate RV systolic pressure due to insufficient tricuspid regurgitant envelope. Trivial tricuspid valve insufficiency. Aortic Valve Trisinus/trileaflet aortic valve. Aortic sclerosis, no stenosis. There is no aortic stenosis. No aortic valve insufficiency. Pulmonic Valve There is no pulmonic valvular stenosis. No pulmonic valve insufficiency. Great Vessels Normal aortic root. Pericardium/Pleural No pericardial effusion. Medication 22 gauge I.V. with prn adaptor inserted into right arm. Performed a rapid injection of agitated mix of 9 cc saline and 1cc air to assess for atrial septal defect. MMode/2D Measurements & Calculations LVIDd: 4.9 cm IVSd: 0.74 cm Ao root diam: 3.2 cm LVIDs: 3.1 cm LVPWd: 0.62 cm LA dimension: 3.9 cm RVDd: 4.3 cm FS: 35.8 % LAV(MOD-bp): 55.2 ml LVAd ap4: 29.4 cm2 SV(MOD-sp4): 56.1 ml LAV(MOD-bp) Indexed: 31.5 ml/m2 LVLd ap4: 7.9 cm LAV(MOD-sp2): 63.0 ml EDV(MOD-sp4): 88.2 ml LAV(MOD-sp4): 48.2 ml EDV(sp4-el): 92.6 ml LVAs ap4: 15.8 cm2 LVLs ap4: 6.7 cm ESV(MOD-sp4): 32.1 ml ESV(sp4-el): 31.6 ml EF(MOD-sp4): 63.6 % EF(sp4-el): 65.8 % SV(sp4-el): 60.9 ml LA A4 area: 18.0 cm2 RA A4 area: 13.3 cm2 TAPSE: 2.1 cm Time Measurements MV dec time: 0.28 sec Doppler Measurements & Calculations MV E max izaiah: 70.7 cm/sec Lat Peak E' Izaiah: 10.0 cm/sec Med Peak E' Izaiah: 5.0 cm/sec MV A max izaiah: 124.8 cm/sec E/E' lat: 7.1 E/E' med: 14.0 MV E/A: 0.57 MV V2 max: 124.1 cm/sec MV P1/2t max izaiah: 69.6 cm/sec Ao V2 max: 185.9 cm/sec MV max P.2 mmHg MV P1/2t: 90.8 msec Ao max P.8 mmHg MV V2 mean: 46.5 cm/sec MV mean P.2 mmHg MV dec slope: 224.6 cm/sec2 MV V2 VTI: 37.5 cm MVA(P1/2t): 2.4 cm2 LV V1 max: 105.7 cm/sec MR max izaiah: 593.8 cm/sec PA V2 max: 112.7 cm/sec LV V1 max P.5 mmHg MR max P.0 mmHg TR max izaiah: 278.3 cm/sec TR max P.0 mmHg ECHO/Echo Complete Interpretation Summary The estimated ejection fraction is 60 %. Unable to assess diastolic dysfunction. Trivial mitral valve insufficiency. Ordering Physician: Ciaran Jacobo Referring Physician: Ciaran Jacobo Performed By: Gerard Herbert RCS
== END | disposition home or self-care (01) ==
PROVIDERS: PCP Student in an Organized Health Care Education/Training Program; Referring Provider Internal Medicine Cardiovascular Disease; Visit Provider Internal Medicine Cardiovascular Disease
DX: R01.1 Cardiac murmur, unspecified (principal)
CPT/HCPCS: 93306; A4216

== ENCOUNTER 2024-03-18 08:00 | Outpatient (RCR) | payer SELFPAY | END 2024-03-18 23:59 | LOC: CR 08:00 | PROVIDERS: PCP Student in an Organized Health Care Education/Training Program; Referring Provider Student in an Organized Health Care Education/Training Program; Visit Provider Student in an Organized Health Care Education/Training Program | DX: Z00.00 Encounter for general adult medical examination without abnormal findings (principal) ==

== ENCOUNTER 2024-04-17 08:00 | Outpatient (RCR) | payer SELFPAY | END 2024-04-18 23:59 | LOC: CR 08:00 | PROVIDERS: PCP Student in an Organized Health Care Education/Training Program; Referring Provider Student in an Organized Health Care Education/Training Program; Visit Provider Student in an Organized Health Care Education/Training Program | DX: Z00.00 Encounter for general adult medical examination without abnormal findings (principal) ==

== ENCOUNTER → 2024-04-18 | Outpatient (CLI) | payer MEDICARE, SELFPAY ==
--- NOTE | 2024-04-18 | ASPS_PTH ---
PATIENT: KIMBERLY NEWMAN LOC: [facility] U#:[id number] AGE/SX: 74/F ROOM: RE04/18/[address]: Dr. Kwaku Moscoso MD : 1950 BED: DIS: 04/18/2024 SPEC #: [id number] RECD: 04/18/24 13:23 STATUS: DALJIT ARJUN #: [id number] MAIRELLE: 04/18/24 00:[address]: Kwaku Moscoso DEPT: CYTOLOGY RECD BY: Toni Doe ENTERED: 04/18/24 13:24 SP TYPE: ASPIRATION OTHR DR: Dr. Rishi Vasquez DO Tissues: A - Thyroid gland, NOS B - Thyroid gland, NOS C - Thyroid gland, NOS Procedures: Special Stain Group II Cytology Other HEADER OPERATION: Bilateral thyroid fine needle aspiration x3 PRE-OP DIAGNOSIS: Thyroid nodules TISSUE SUBMITTED: A- Right mid thyroid slides x6, B- Right lower thyroid slides x6, C- Left mid thyroid slides x7 DIAGNOSIS CYTOLOGY A. Right mid thyroid, fine needle aspiration (smears): Consistent benign follicular/colloid nodule, [place] Category II. Adequate for evaluation. B. Right lower thyroid, fine needle aspiration (smears): A few follicular cells with minimal atypia of undetermined significance in the background of benign follicular/colloid nodule, [place] Category III. Adequate for evaluation. See comment. C. Left mid thyroid, fine needle aspiration (smears): A few follicular cells with minimal atypia of undetermined significance in the background of benign follicular cells/colloid nodule with cystic changes, [place] Category III. Adequate for evaluation. See comment. IVETTE/ 04/21/2024 COMMENT Correlation with clinical, radiologic findings and appropriate follow up are necessary B. Per recommendations and a clinician-approved plan (a call was made to the referring doctor about the recommendation), genomic testing (Afirma) has been submitted. Results will be reported as an addendum and faxed to clinician. C.. Per recommendations and a clinician-approved plan (a call was made to the referring doctor about the recommendation), genomic testing (Afirma) has been submitted. Results will be reported as an addendum and faxed to clinician. Case has been reviewed in consultation with Dr. Lee who concurs with the above diagnosis. IDC:AM CYTOLOGY STUDY Slides are reviewed. CYTOLOGY GROSS A. Received are 6 smears labeled with the patient's name and designated per the requisition as Right mid thyroid. Submitted for staining. B. Received are 6 smears labeled with the patient's name and designated per the requisition as Right lower thyroid. Submitted for staining. C. Received are 7 smears labeled with the patient's name and designated per the requisition as Left mid thyroid. Submitted for staining. 04/18/2024 TC:5 [facility]: [id number] ADDENDUM ADDENDUM ADDENDUM ADDENDUM ADDENDUM ADDENDUM ADDENDUM ADDENDUM ADDENDUM ADDENDUM ADDENDUM ADDENDUM 04/29/2024 14:45 ADDENDUM 04/29/2024 14:45 ADDENDUM 04/29/2024 14:45 ADDENDUM 04/29/2024 14:45 ADDENDUM 04/29/2024 14:45 B. AFIRMA RESULTS REPORT RESULTS INTERPRETATION: The result of this 1.1 cm [place] III nodule B is Afirma GSC benign, which suggests a low risk of cancer of approximately 4%. C. AFIRMA RESULTS REPORT RESULTS INTERPRETATION: The result of this 1.3 cm [place] III nodule C is Afirma GSC benign, which suggests a low risk of cancer of approximately 4%. Please see complete report in e-chart or EMR
== END | disposition home or self-care (01) ==
LOC: LAB 11:25
PROVIDERS: PCP Student in an Organized Health Care Education/Training Program; Referring Provider Surgery; Visit Provider Surgery
DX: E04.1 Nontoxic single thyroid nodule (principal)
CPT/HCPCS: 88161; 88313

== ENCOUNTER 2024-05-13 08:00 | Outpatient (RCR) | payer SELFPAY | END 2024-05-18 23:59 | LOC: CR 08:00 | PROVIDERS: PCP Student in an Organized Health Care Education/Training Program; Referring Provider Student in an Organized Health Care Education/Training Program; Visit Provider Student in an Organized Health Care Education/Training Program | DX: Z00.00 Encounter for general adult medical examination without abnormal findings (principal) ==

== ENCOUNTER 2024-06-17 08:00 | Outpatient (RCR) | payer SELFPAY | END 2024-06-18 23:59 | LOC: CR 08:00 | PROVIDERS: PCP Student in an Organized Health Care Education/Training Program; Referring Provider Student in an Organized Health Care Education/Training Program; Visit Provider Student in an Organized Health Care Education/Training Program | DX: Z00.00 Encounter for general adult medical examination without abnormal findings (principal) ==

== ENCOUNTER → 2024-06-19 | Outpatient (CLI) | payer MEDICARE, SELFPAY ==
--- NOTE | 2024-06-19 11:05 | RAD_ITS ---
STUDY: X-RAY - RIGHT SHOULDER REASON FOR EXAM: Female, 74 years old. PAIN TECHNIQUE: 4 views of the right shoulder. COMPARISON: None. FINDINGS: Normal glenohumeral articulation. There is hypertrophic acromioclavicular arthrosis with inferior osteophyte formation. Normal acromion. Normal humeral head and visualized proximal humerus. There are atherosclerotic calcifications. There is no demonstrated fracture. Normal visualized pulmonary apex. 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 No demonstrated fracture. Electronically Signed: Roosevelt Joshua MD at 8:43 EDT ,
== END | disposition home or self-care (01) ==
LOC: RAD 11:04
PROVIDERS: PCP Student in an Organized Health Care Education/Training Program; Referring Provider Anesthesiology; Visit Provider Anesthesiology
DX: M25.511 Pain in right shoulder (principal); M47.816 Spondylosis without myelopathy or radiculopathy, lumbar region; R10.2 Pelvic and perineal pain
CPT/HCPCS: 73030

== ENCOUNTER 2024-07-17 08:00 | Outpatient (RCR) | payer SELFPAY | END 2024-07-19 23:59 | LOC: CR 08:00 | PROVIDERS: PCP Student in an Organized Health Care Education/Training Program; Referring Provider Student in an Organized Health Care Education/Training Program; Visit Provider Student in an Organized Health Care Education/Training Program | DX: Z00.00 Encounter for general adult medical examination without abnormal findings (principal) ==

== ENCOUNTER → 2024-08-01 | Outpatient (CLI) | payer MEDICARE, SELFPAY ==
--- NOTE | 2024-08-01 08:30 | MRI_ITS ---
EXAM: MR PELVIS WITHOUT INTRAVENOUS CONTRAST CLINICAL INDICATION: PELVIC PAIN, L buttock pain, no known injury TECHNIQUE: Multiplanar and multisequence MR images of the pelvis without intravenous contrast. COMPARISON: No relevant prior studies available. FINDINGS: APPENDIX: No evidence of acute appendicitis. INTRAPERITONEAL SPACE: Unremarkable. No significant free fluid in the pelvis. BLADDER: Decompressed appearance of the bladder which is grossly unremarkable. Visualized bowel is unremarkable. OVARIES: Unremarkable as visualized. No mass or complex cyst. UTERUS/CERVIX: Unremarkable. No mass. Endometrial stripe is normal in thickness and appearance. BONES/JOINTS: Unremarkable SI joints and pubic symphysis for age. No suspicious lytic or blastic abnormality. No osteonecrosis. No other marrow signal alterations. SOFT TISSUES: Unremarkable. No pelvic wall hernia. No soft tissue masses or fluid collections. LYMPH NODES: Unremarkable. No enlarged lymph nodes. 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 MRI/Pelvis (Routine) IMPRESSION: 1. 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 2. No acute disease. 3. Ancillary findings as above. Electronically Signed: Gian Cole MD at 23:13 EDT ,
== END | disposition home or self-care (01) ==
PROVIDERS: PCP Student in an Organized Health Care Education/Training Program; Referring Provider Anesthesiology; Visit Provider Anesthesiology
DX: R10.2 Pelvic and perineal pain (principal); M25.511 Pain in right shoulder; M47.816 Spondylosis without myelopathy or radiculopathy, lumbar region
CPT/HCPCS: 72195

== ENCOUNTER 2024-08-14 08:00 | Outpatient (RCR) | payer SELFPAY | END 2024-08-18 23:59 | LOC: CR 08:00 | PROVIDERS: PCP Student in an Organized Health Care Education/Training Program; Referring Provider Student in an Organized Health Care Education/Training Program; Visit Provider Student in an Organized Health Care Education/Training Program | DX: Z00.00 Encounter for general adult medical examination without abnormal findings (principal) ==

== ENCOUNTER 2024-09-18 08:00 | Outpatient (RCR) | payer SELFPAY | END 2024-09-18 23:59 | LOC: CR 08:00 | PROVIDERS: PCP Student in an Organized Health Care Education/Training Program; Referring Provider Student in an Organized Health Care Education/Training Program; Visit Provider Student in an Organized Health Care Education/Training Program | DX: Z00.00 Encounter for general adult medical examination without abnormal findings (principal) ==

== ENCOUNTER 2024-10-14 08:00 | Outpatient (RCR) | payer SELFPAY | END 2024-10-18 23:59 | LOC: CR 08:00 | PROVIDERS: PCP Student in an Organized Health Care Education/Training Program; Referring Provider Student in an Organized Health Care Education/Training Program; Visit Provider Student in an Organized Health Care Education/Training Program | DX: Z00.00 Encounter for general adult medical examination without abnormal findings (principal) ==

== ENCOUNTER 2024-11-18 08:00 | Outpatient (RCR) | payer SELFPAY | END 2024-11-18 23:59 | LOC: CR 08:00 | PROVIDERS: PCP Student in an Organized Health Care Education/Training Program; Referring Provider Student in an Organized Health Care Education/Training Program; Visit Provider Student in an Organized Health Care Education/Training Program | DX: Z00.00 Encounter for general adult medical examination without abnormal findings (principal) ==

== ENCOUNTER → 2024-12-17 | Outpatient (CLI) | payer MEDICARE, SELFPAY | END | disposition home or self-care (01) | PROVIDERS: PCP Student in an Organized Health Care Education/Training Program; Referring Provider Podiatrist; Visit Provider Podiatrist | DX: L97.522 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 foot with fat layer exposed (principal) ==

== ENCOUNTER 2024-12-18 08:00 | Outpatient (RCR) | payer SELFPAY | END 2024-12-19 23:59 | LOC: CR 08:00 | PROVIDERS: PCP Student in an Organized Health Care Education/Training Program; Referring Provider Student in an Organized Health Care Education/Training Program; Visit Provider Student in an Organized Health Care Education/Training Program | DX: Z00.00 Encounter for general adult medical examination without abnormal findings (principal) ==

== ENCOUNTER 2024-12-23 06:09 | Outpatient (RCR) | payer SELFPAY | END 2025-01-16 23:59 | LOC: CR 06:09 | PROVIDERS: PCP Student in an Organized Health Care Education/Training Program; Referring Provider Student in an Organized Health Care Education/Training Program; Visit Provider Student in an Organized Health Care Education/Training Program | DX: Z00.00 Encounter for general adult medical examination without abnormal findings (principal) ==

== ENCOUNTER → 2024-12-30 | Outpatient (CLI) | payer SELFPAY | END | disposition home or self-care (01) | PROVIDERS: PCP Student in an Organized Health Care Education/Training Program; Visit Provider Podiatrist Foot & Ankle Surgery | DX: S91.302A Unspecified open wound, left foot, initial encounter (principal); X58.XXXA Exposure to other specified factors, initial encounter | CPT/HCPCS: 87070; 87075; 87077; 87186; 87205 ==

== ENCOUNTER → 2025-01-06 | Outpatient (CLI) | payer MEDICARE, SELFPAY ==
--- NOTE | 2025-01-06 08:58 | ART_ITS ---
Reason For Study Reason For Study: PVD Procedure A bilateral lower extremity continuous wave Doppler with analog waveform analysis,segmental pressures,and ankle brachial indexes without exercise. Left Segmental Pressures Left brachial= 134mmHg. Left high thigh = 81mmHg. Left low thigh = 66mmHg. Left calf = 48mmHg. Left posterior tibial artery = 113mmHg. Left dorsalis pedis artery = 94mmHg. Left digit = 28 mmHg. The left dorsalis pedis waveforms are monophasic. The left posterior tibial artery waveforms are monophasic. Right Segmental Pressures Right brachial= 135mmHg. Right high thigh = 108mmHg. Right low thigh = 76mmHg. Right calf = 76mmHg. Right posterior tibial artery = 51mmHg. Right dorsalis pedis artery = 99mmHg. Right digit = 40 mmHg. The right dorsalis pedis waveforms are monophasic. The right posterior tibial artery waveforms are monophasic. Indices The right ankle brachial index by the dorsalis pedis is 0.73. The right ankle brachial index by the posterior tibial artery is 0.38. The right digital-brachial index is 0.30. The left ankle brachial index by the dorsalis pedis is 0.70. The left ankle brachial index by the posterior tibial artery is 0.84. The left digital-brachial index is 0.21. VL/Lower Ext Art Exam w/o Exercis Interpretation Summary Right JEFFREY 0.73, moderate arterial insufficiency. Doppler/PVR waveforms and segm ental pressures reveal aorto-iliac, proximal femoral disease. Left JEFFREY 0.84, moderate arterial insufficiency. Doppler/PVR waveforms and segme ntal pressures reveal aorto-iliac disease. Ordering Physician: Brandon Membreno Referring Physician: Luis Fan M.D. Performed By: Jacquie French RVT and Student
== END | disposition home or self-care (01) ==
LOC: CVS 08:54
PROVIDERS: PCP Student in an Organized Health Care Education/Training Program; Referring Provider Podiatrist; Visit Provider Podiatrist
DX: I73.89 Other specified peripheral vascular diseases (principal)
CPT/HCPCS: 93923

== ENCOUNTER 2025-02-05 08:00 | Outpatient (RCR) | payer SELFPAY | END 2025-02-16 23:59 | LOC: CR 08:00 | PROVIDERS: PCP Student in an Organized Health Care Education/Training Program; Referring Provider Student in an Organized Health Care Education/Training Program; Visit Provider Student in an Organized Health Care Education/Training Program | DX: S91.302A Unspecified open wound, left foot, initial encounter (principal) | CPT/HCPCS: 87070; 87077; 87186; 87205 ==

== ENCOUNTER → 2025-02-16 | Outpatient (CLI) | payer MEDICARE, SELFPAY ==
--- NOTE | 2025-02-16 | AMP_PTH ---
PATIENT: KIMBERLY NEWMAN [facility] U#:[id number] AGE/SX: 74/F ROOM: RE02/16/[address]: Dr. Ciaran Berry DPM : 1950 BED: DIS: 02/16/2025 SPEC #: [id number] RECD: 02/17/25 09:37 STATUS: DALJIT REQ #: [id number] MARIELLE: 02/16/25 00:[address]: Ciaran Berry DEPT: SURGICAL PATHOLOGY RECD BY: Rei Wagner ENTERED: 02/17/25 09:38 SP TYPE: Amputation OTHR DR: Dr. Rishi Vasquez, DO Tissues: A - Toe, NOS Procedures: Decalcification bone/plaque Surgery Specimen Level IV HEADER OPERATION: Amputation PRE-OP DIAGNOSIS: Osteomyelitis, left foot, 5th digit TISSUE SUBMITTED: A- Left 5th digit MICROSCOPIC DIAGNOSIS A. Left Foot, 5th Digit, Osteomyelitis, Amputation: - Osteomyelitis and periosteal suppurative inflammation. MICROSCOPIC DESCRIPTION Slides are reviewed. GROSS DESCRIPTION A. Received in formalin in a container labeled with the patient's name, date of , and L fifth digit is a shaggy and irregular portion of firm bone and minimal attached soft tissue measuring 1.3 x 1.2 x 0.6 cm. No distinct skin is grossly recognized, no definitive margin is discovered. The specimen is trisected to reveal firm, weiss-yellow bone. Submitted entirely in A1 following decalcification. [facility] 02-17-2025 CPT:50461,12409
== END | disposition home or self-care (01) ==
PROVIDERS: PCP Student in an Organized Health Care Education/Training Program; Referring Provider Student in an Organized Health Care Education/Training Program; Visit Provider Student in an Organized Health Care Education/Training Program
DX: M86.172 Other acute osteomyelitis, left ankle and foot (principal)
CPT/HCPCS: 87070; 87077; 87205; 88305; 88311

== ENCOUNTER 2025-02-17 06:23 | Outpatient (RCR) | payer SELFPAY | END 2025-03-18 23:59 | LOC: CR 06:23 | PROVIDERS: PCP Student in an Organized Health Care Education/Training Program; Referring Provider Student in an Organized Health Care Education/Training Program; Visit Provider Student in an Organized Health Care Education/Training Program | DX: S91.302A Unspecified open wound, left foot, initial encounter (principal) ==

== ENCOUNTER → 2025-02-26 | Outpatient (CLI) | payer MEDICARE, SELFPAY | END | disposition home or self-care (01) | PROVIDERS: PCP Student in an Organized Health Care Education/Training Program; Referring Provider Podiatrist Foot & Ankle Surgery; Visit Provider Podiatrist Foot & Ankle Surgery | DX: M14.672 Charcot's joint, left ankle and foot (principal); L97.522 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 foot with fat layer exposed | CPT/HCPCS: 87070; 87075; 87205 ==

== ENCOUNTER 2025-03-07 13:36 | Inpatient (IN) | payer MEDICARE, SELFPAY ==
[2025-03-07] VITALS (7 sets, daily range): BP systolic 104–165; BP diastolic 40–92; PULSE 63–78; RESP 12–18; TEMP 36.2–36.8; O2SAT 95–99; BMI 27.6; BMI 25.4
--- NOTE | 2025-03-07 13:53 | RAD_ITS ---
PROCEDURE: HIP, UNI W/ PELVIS 2-3 VIEWS 03/07/2025 REASON FOR EXAM: PAIN TECHNIQUE: 2 views of the left hip with AP pelvis. COMPARISON: None. FINDINGS: Bones: Diffuse osseous demineralization. No obvious acute fracture, however visualization is limited by demineralization and patient motion. Chronic fracture deformity/heterotopic ossification along the right greater trochanter. 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 Soft tissues: Marked vascular calcifications. Other: Degenerative changes throughout the lumbar spine. RAD/HIP, UNI W/ Pelvis 2-3 Views IMPRESSION: No obvious acute fracture given limitations. Reading Location: [id number]
--- NOTE | 2025-03-07 13:53 | EKG12_ITS ---
Test Reason : FALL Blood Pressure : */* mmHG Vent. Rate : 64 BPM Atrial Rate : 64 BPM P-R Int : 162 ms QRS Dur : 96 ms QT Int : 392 ms P-R-T Axes : 71 10 245 degrees QTcB Int : 404 ms Normal sinus rhythm Septal infarct , age undetermined Abnormal ECG Confirmed by ANGELI LUNDBERG, LOVE ([id number]), news assignment editor FRANSICO MCCLAIN ([id number]) on 03/09/2025 8:35:37 AM Referred By: Maddie Merchant Confirmed By: LOVE SUH MD
--- NOTE | 2025-03-07 13:59 | EX.ED.DYSGE1 ---
HPI <LILLIAM Joshua - Last Filed: 03/07/25 16:28> History of Present Illness Chief Complaint: Fall Narrative Narrative: 75-year-old female with PMH of HTN, HLD, DM2, CKD, chronic diabetic wounds of both feet presents after recurrent falls this week. She slipped and fell 1 week ago and was on the ground all night until family came but was not evaluated. She fell again 3 days ago. This morning she states she slipped out of bed onto the floor but it was not a fall. She denies hitting her head or losing consciousness with these falls. She is on Plavix. She was on the ground for couple hours this morning until her brother called and then came over and knocked on the door and called EMS. Patient lives alone and prior to this week did not have frequent falls. She denies fever, chills, chest pain, shortness of breath, palpitations, vomiting, abdominal pain, diarrhea, black or bloody stools, or urinary symptoms. She has chronic diabetic wounds on both feet managed by Dr. Irene and states they are improving. She is finishing up a doxycycline prescription. [facility] <LILLIAM Joshua - Last Filed: 03/07/25 16:28> [facility] Medical History MRSA (methicillin resistant staph aureus) culture positive Depression Diabetes Back pain Vertigo History of pain when walking Hypertension Arthritis Wears dentures Post-menopausal Low iron High cholesterol Easy bruising Neuropathy Dietary restriction Former smoker Cardiology follow-up encounter History of torn meniscus of left knee Carotid artery stenosis Essential hypertension Skin lesion Hammer toe of left foot Osteomyelitis Chronic kidney disease, stage 3 Atherosclerosis of coronary artery of [place] heart without angina pectoris Hyperlipidemia Peripheral vascular occlusive disease Hammer toe of second toe of left foot Hallux valgus (acquired), right foot Healed ulcer of left foot on examination Chronic ulcer of left foot with fat layer exposed Delayed wound healing Malnutrition Osteomyelitis of foot 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 Methicillin resistant Staphylococcus aureus infection Chronic osteomyelitis of left foot Non-healing ulcer of right foot DM2 (diabetes mellitus, type 2) Home Medications ?Medication ?Instructions ?Recorded ?Last Taken ?Type aspirin 81 mg tablet,delayed 81 mg PO QHS 02/25/14 10/12/16 History release multivitamin with folic acid 400 1 tab PO DAILY 01/13/14 11/14/16 History mcg tablet simvastatin 40 mg tablet 40 mg PO QHS 05/31/16 08/30/16 History omega-3 fatty acids-fish oil 340 1 ea PO DAILY 06/29/16 08/27/16 History mg-1,000 mg capsule ferrous sulfate 325 mg (65 mg 325 mg PO DAILY 08/15/18 Unknown History iron) tablet ascorbic acid (vitamin C) 500 mg 1,000 mg PO LUNCH 11/25/20 Unknown History tablet calcium carbonate (Calcium 600) 600 mg PO DAILY 12/29/21 Unknown History docusate sodium 100 mg capsule 100 mg PO BID 12/29/21 Unknown History hydrochlorothiazide 25 mg tablet 25 mg PO QAM 02/07/22 Unknown History metformin 500 mg tablet 500 mg PO BID 06/29/22 Unknown History cranberry extract 500 mg capsule 500 mg PO DINNER 08/08/22 Unknown History clopidogrel 75 mg tablet 75 mg PO DAILY #90 tabs 10/23/24 Unknown Rx metoprolol succinate 50 mg 50 mg PO DAILY #90 tabs 10/23/24 Unknown Rx tablet,extended release 24 hr amlodipine 10 mg tablet 10 mg PO DAILY Please hold RX 12/25/24 Unknown Rx until pt calls #90 tabs doxycycline hyclate 100 mg capsule 100 mg PO BID 2 weeks #28 caps 02/19/25 Unknown Rx Lactobacillus acidophilus 600 mg PO QDAY 03/07/25 Unknown History (Acidophilus capsule) glimepiride 4 mg tablet 4 mg PO DAILY 03/07/25 Unknown History lisinopril 20 mg tablet 20 mg PO DAILY 03/07/25 Unknown History pregabalin 100 mg capsule 100 mg PO TID 03/07/25 Unknown History Allergy/AdvReac Type Severity Reaction Status Date / Time Sulfa (Sulfonamide Allergy Unknown Verified 03/07/25 13:44 Antibiotics) Family History (Updated 03/07/25 @ 17:[address] Maddie Merchant MD) Father CAD (coronary artery disease) Heart disease Hypertension CVA (cerebral vascular accident) Mother COPD (chronic obstructive pulmonary disease) Hypertension Heart disease Heart failure Surgical History History of repair of left rotator cuff History of total left knee replacement (~2014) History of angioplasty of peripheral vessel (~2012) amputation left toe History of left heart catheterization (~01/20/14) Social History (Updated 03/07/25 @ 17:[address] Madide Merchant MD) household members: none Smoking Status: Former smoker how long ago did patient quit smokin years ago alcohol intake: never substance use type: does not use caffeine: No ROS <LILLIAM Joshua - Last Filed: 03/07/25 16:28> ROS ED ROS Narrative Constitutional: Negative for fever, chills, malaise. CVS: Negative for palpitations, chest pain, syncope. Respiratory: Negative for shortness of breath, cough. GI: Negative for abdominal pain, nausea, vomiting, diarrhea, melena, hematochezia. : Negative for dysuria. EXAM <LILLIAM Joshua - Last Filed: 03/07/25 16:28> Physical Exam Narrative Exam Narrative: CONST: Patient sitting in no acute distress. EYES: Normal inspection. PERRL, EOMI. NECK: Normal inspection. No midline spinal tenderness, no step off or crepitus. RESP: No respiratory distress, CTAB. Chest wall nontender. CVS: Regular rate and rhythm, no murmur, no gallop. ABD: Soft and nontender, no guarding or rebound, nondistended. Back: Normal inspection, no midline tenderness. SKIN: Color normal, no rash, warm, dry, intact. EXTREMITIES: Normal appearance of upper extremities. Old bruising right shoulder without tenderness. Full range of motion, 2+ radial pulses. Patient holding both hips flexed. Pain with movement of left hip. No other bony tenderness present. 2+ DP pulses. Both feet have chronic diabetic wounds with black eschars without acute odor, erythema, or drainage. NEURO: Alert and answering questions appropriately. PSYCH: Normal affect. Const Vital Signs: 03/07/25 13:42 03/07/25 13:45 03/07/25 15:36 Temperature 98 F Temperature Source Oral Pulse Rate 72 69 Respiratory Rate 18 18 Respiratory Effort Normal Non-Labored Respiratory Depth Normal Respiratory Pattern Normal Blood Pressure 113/51 L 118/92 H Blood Pressure Mean 71 100 Pulse Ox 95 99 Oxygen Delivery Method Room Air Room Air Room Air 03/07/25 16:17 Temperature 98.2 F Temperature Source Pulse Rate 78 Respiratory Rate 12 Respiratory Effort Respiratory Depth Respiratory Pattern Blood Pressure 165/84 H Blood Pressure Mean 111 Pulse Ox 98 Oxygen Delivery Method <Dr. Esteban Becker DO - Last Filed: 03/07/25 22:39> Physical Exam Const Vital Signs: 03/07/25 13:42 03/07/25 13:45 03/07/25 15:36 Temperature 98 F Temperature Source Oral Pulse Rate 72 69 Respiratory Rate 18 18 Respiratory Effort Normal Non-Labored Respiratory Depth Normal Respiratory Pattern Normal Blood Pressure 113/51 L 118/92 H Blood Pressure Mean 71 100 Pulse Ox 95 99 Oxygen Delivery Method Room Air Room Air Room Air 03/07/25 16:17 Temperature 98.2 F Temperature Source Pulse Rate 78 Respiratory Rate 12 Respiratory Effort Respiratory Depth Respiratory Pattern Blood Pressure 165/84 H Blood Pressure Mean 111 Pulse Ox 98 Oxygen Delivery Method MDM <LILLIAM Joshua - Last Filed: 03/07/25 16:28> [facility] MDM Narrative Medical decision making narrative: History gathered from: Patient, family members Differential includes but not limited to hip contusion, fracture, electrolyte derangement, SHAYY, rhabdomyolysis 75-year-old female is had 3 falls this week. She was on the ground for a few hours this morning before her family checked on her and she was brought in by EMS. She has bruising on her right shoulder and right mid back which looks old and she states this is from a fall earlier this week. She has acute left hip pain but is moving her lower extremities well and neurovascularly intact. She has chronic diabetic ulcers that do not look acutely infected. WBC is 14.7. Hemoglobin is 8.7. She was previously 12.3 in 2020 and prior to that her baseline was 9?10. I have no recent labs for comparison. She denies melena or hematochezia. On rectal exam there is no stool or gross blood but it is Hemoccult positive. Sodium and potassium are normal. BUN 130, creatinine 2.54. Her baseline creatinine is around 1.70 so this is SHAYY on CKD. Glucose is 178. CO2 16.8. Gap 18. CK is elevated at 837 consistent with mild rhabdomyolysis. Straight catheterized urinalysis is consistent with UTI. She has no urinary symptoms and it was sent for culture. I discussed the case with Dr. Merchant for admission and she recommended IV Rocephin for the UTI. [facility]. Lab Data Attestation: I reviewed the patient's lab results. Labs: Laboratory Results - last 24 hr 03/07/25 03/07/25 14:05 15:20 WBC 14.7 H RBC 3.07 L Hgb 8.7 L Hct 27.2 L MCV 88.6 MCH 28.3 MCHC 32.0 RDW Std Deviation 45.6 H RDW Coeff of [place] 14.5 Plt Count 216 MPV 11.3 Immature Gran % (Auto) 1.000 H Neut % (Auto) 87.8 H Lymph % (Auto) 5.2 L [place] % (Auto) 5.3 Eos % (Auto) 0.4 Baso % (Auto) 0.3 Absolute Neuts (auto) 12.9 H Absolute Lymphs (auto) 0.76 L Nucleated RBC % 0 Sodium 140 Potassium 4.5 Chloride 105 Carbon Dioxide 16.8 L Anion Gap 18 H BUN 130 H* Creatinine 2.54 H Estim Creat Clear Calc 20.75 L Est GFR (MDRD) Non-Af 19 L BUN/Creatinine Ratio 51.2 H Glucose 178 H Calcium 8.8 Phosphorus 5.0 H Magnesium 2.9 H Total Bilirubin 0.42 Direct Bilirubin 0.25 AST 52 H ALT 60 H Alkaline Phosphatase 66 Total Creatine Kinase 837 H Total Protein 5.9 Albumin 3.1 L Globulin 2.8 Urine Color Yellow Urine Clarity Cloudy Urine pH 6.0 Ur Specific [place] 1.015 Urine Protein 30 H Urine Glucose (UA) Normal Urine Ketones 5 H Urine Occult Blood 150 H Urine Nitrite Positive H Urine Bilirubin Negative Urine Urobilinogen Normal Ur Leukocyte Esterase 500 H Urine RBC 0 SEEN Urine WBC >100 SEEN Ur Squamous Epith Cells 0 SEEN Urine Bacteria 1+ Urine Mucus 0 SEEN Radiography Diagnostic Testing: Clinical Impression(s) from Imaging Studies Hip/Pelvis X-Ray 03/07/25 13:53 IMPRESSION: No obvious acute fracture given limitations. Reading Location: [facility] Chest X-Ray 03/07/25 14:55 IMPRESSION: No Acute Findings. Reading Location: [facility] ED attending interpretation of 1 view chest x-ray shows normal heart size, no acute infiltrate. ED attending interpretation of left hip shows no acute fracture or dislocation. EKG Initial EKG: Attestation: I personally reviewed and interpreted this EKG as follows: Interpretation: Sinus Rhythm and No Acute Injury Pattern Comments: Normal sinus rhythm at 64 bpm No acute ischemic changes <Dr. Esteban Becker, DO - Last Filed: 03/07/25 22:39> [facility] MDM Narrative Medical decision making narrative: History gathered from: Patient, family members Differential includes but not limited to hip contusion, fracture, electrolyte derangement, SHAYY, rhabdomyolysis 75-year-old female is had 3 falls this week. She was on the ground for a few hours this morning before her family checked on her and she was brought in by EMS. She has bruising on her right shoulder and right mid back which looks old and she states this is from a fall earlier this week. She has acute left hip pain but is moving her lower extremities well and neurovascularly intact. She has chronic diabetic ulcers that do not look acutely infected. WBC is 14.7. Hemoglobin is 8.7. She was previously 12.3 in 2020 and prior to that her baseline was 9?10. I have no recent labs for comparison. She denies melena or hematochezia. On rectal exam there is no stool or gross blood but it is Hemoccult positive. Sodium and potassium are normal. BUN 130, creatinine 2.54. Her baseline creatinine is around 1.70 so this is SHAYY on CKD. Glucose is 178. CO2 16.8. Gap 18. CK is elevated at 837 consistent with mild rhabdomyolysis. Straight catheterized urinalysis is consistent with UTI. She has no urinary symptoms and it was sent for culture. I discussed the case with Dr. Merchant for admission and she recommended IV Rocephin for the UTI. Patient admitted to the [facility] floor in stable condition. Attending note: I have personally performed a face to face assessment of the patient and have reviewed the JENNA note. I personally made/approved the management plan and take responsibility for the patient management. I performed a substantive portion of the visit including all aspects of the following. My broderick findings include: Left from home weakness unable to get up. She slid off the bed. She has had 2 falls in the last week. She had previous left hip pain that worsened after her first fall a week ago. No head injuries. No cough no urinary symptoms no vomiting or diarrhea. She reports she was on the ground for 2 hours. Her brother checked on her and called EMS. Currently being treated with doxycycline for infection of her feet. From records wound cultures MRSA. Exam GCS 15 nontoxic. Heart was regular lungs clear abdomen soft. Feet examination partial amputations left foot eschar at the heel mild erythema. Right foot with eschar on the right heel. On workup white count 14 she had worsening slight SHAYY creatinine 2.54 elevated CPK of 837 she was given fluids. Urine with signs of infection culture sent she did not have any symptoms however hospitalist recommended antibiotics for which Rocephin given. Hemoglobin 8.7 down from 12.3 previously. Hemoccult returned positive. She is admitted for further management. Three-view x-ray left hip interpreted myself and read by radiology negative for any fracture. 1 view chest x-ray interpreted myself and read by radiology shows no acute process. Lab Data Labs: Laboratory Results - last 24 hr 03/07/25 03/07/25 14:05 15:20 WBC 14.7 H RBC 3.07 L Hgb 8.7 L Hct 27.2 L MCV 88.6 MCH 28.3 MCHC 32.0 RDW Std Deviation 45.6 H RDW Coeff of [place] 14.5 Plt Count 216 MPV 11.3 Immature Gran % (Auto) 1.000 H Neut % (Auto) 87.8 H Lymph % (Auto) 5.2 L [place] % (Auto) 5.3 Eos % (Auto) 0.4 Baso % (Auto) 0.3 Absolute Neuts (auto) 12.9 H Absolute Lymphs (auto) 0.76 L Nucleated RBC % 0 Sodium 140 Potassium 4.5 Chloride 105 Carbon Dioxide 16.8 L Anion Gap 18 H BUN 130 H* Creatinine 2.54 H Estim Creat Clear Calc 20.75 L Est GFR (MDRD) Non-Af 19 L BUN/Creatinine Ratio 51.2 H Glucose 178 H Calcium 8.8 Phosphorus 5.0 H Magnesium 2.9 H Total Bilirubin 0.42 Direct Bilirubin 0.25 AST 52 H ALT 60 H Alkaline Phosphatase 66 Total Creatine Kinase 837 H Total Protein 5.9 Albumin 3.1 L Globulin 2.8 Urine Color Yellow Urine Clarity Cloudy Urine pH 6.0 Ur Specific [place] 1.015 Urine Protein 30 H Urine Glucose (UA) Normal Urine Ketones 5 H Urine Occult Blood 150 H Urine Nitrite Positive H Urine Bilirubin Negative Urine Urobilinogen Normal Ur Leukocyte Esterase 500 H Urine RBC 0 SEEN Urine WBC >100 SEEN Ur Squamous Epith Cells 0 SEEN Urine Bacteria 1+ Urine Mucus 0 SEEN Radiography Diagnostic Testing: Clinical Impression(s) from Imaging Studies Hip/Pelvis X-Ray 03/07/25 13:53 IMPRESSION: No obvious acute fracture given limitations. Reading Location: [facility] Chest X-Ray 03/07/25 14:55 IMPRESSION: No Acute Findings. Reading Location: [facility] Discharge Plan Dx/Rx/DC Orders Clinical Impression: Recurrent falls, Anemia, SHAYY (acute kidney injury), Chronic kidney disease, Contusion of left hip, GI bleed, Rhabdomyolysis, Chronic wound of extremity, Acute UTI Disposition Disposition: Acute Care Hospital [facility] Discharge Date/Time: 03/07/25 17:28
[2025-03-07 14:16] LABS: Absolute Lymphocyte Count 0.76 X10^3/uL (0.83-4.51); Absolute Neutrophil Count 12.9 X10^3/uL (2.0-7.7); Basophil# 0.04 X10^3/uL; Basophil% 0.3 % (0-1); Eosinophil# 0.06 X10^3/uL; Eosinophils% 0.4 % (0-5); Hematocrit 27.2 % (37-47); Hemoglobin 8.7 g/dL (12.0-15.0); Lymphocyte # 0.76 X10^3/ul (0.83-4.51); Lymphocyte % 5.2 % (19-41); Mean Corpuscular Hgb 28.3 pg (27.0-32.0); Mean Corpuscular Volume 88.6 fL (81-99); Mean Platelet Vol. 11.3 fl (6.2-12.0); Monocyte# 0.78 X10^3/uL; Monocyte% 5.3 % (0-10); NRBC Flagged by Analyzer 0 % (0-5); Neutrophil # 12.93 X10^3/uL (2.7-7.7); Neutrophil % 87.8 % (47-70); Platelet Count 216 K/mm3 (150-450); RBC Distribution Width CV 14.5 % (11.6-14.6); RBC Distribution Width SD 45.6 fl (35.1-43.9); Red Blood Count 3.07 M/mm3 (4.2-5.4); White Blood Count 14.7 K/mm3 (4.4-11.0)
[2025-03-07] MEDS: 0.9% Normal Saline (1000mL) 1,000 ML 999 ML IV (14:21)
--- NOTE | 2025-03-07 14:55 | RAD_ITS ---
PROCEDURE: CHEST 1 VIEW (PORTABLE) 03/07/2025 REASON FOR EXAM: FALLS TECHNIQUE: Frontal view of the chest. COMPARISON: None. FINDINGS: Hardware: Orthopedic anchors within the left humeral head. Heart: The heart size is normal. Lungs: No focal consolidation, pleural effusion or pneumothorax. Bones: Degenerative changes are identified within the thoracic spine. Other: Vascular calcifications. RAD/Chest 1 View (Portable) IMPRESSION: No Acute Findings. Reading Location: [id number]
[2025-03-07 15:29] LABS: Mucous, Urine 0 SEEN /hpf (<or=2+); Red Blood Cells-Urine 0 SEEN /hpf (0-5); Squamous Epithelial Cells - UA 0 SEEN /hpf (5-10)
[2025-03-07 15:29] LABS: CPK Total, Creatine Kinase 837 U/L (24-195)
[2025-03-07 15:32] LABS: Anion Gap 18 (5-15); BUN 130 mg/dL (4-19); BUN/Creat Ratio 51.2 RATIO (10-20); Calcium,Total 8.8 mg/dL (7.6-11.0); Carbon Dioxide 16.8 mmol/L (21.0-32.0); Chloride 105 mmol/L (98-108); Creatinine, Serum 2.54 mg/dL (0.70-1.20); EST Glomerular Filtration Rate 19 (>60); Estimated Creatinine Clearance 20.75 ml/min (50-250); Glucose 178 mg/dL (70-99); Potassium 4.5 mmol/L (3.3-5.1); Sodium Level 140 mmol/L (133-145)
[2025-03-07 15:45] LABS: Color, Urine Yellow (Yellow); Glucose, Dipstick Normal (Normal); Ketone-Dipstick 5 mg/dl (Negative); Leukocyte Esterase-Dipstick 500 /ul (Negative); Nitrite-Dipstick Positive (Negative); Occult Blood-Urine 150 /ul (Negative); Protein-Dipstick 30 mg/dl (Negative); Specific Gravity, Urine 1.015 (1.002-1.030); Urine Bilirubin Dipstick Negative (Negative); Urine Clarity Cloudy (Clear); Urine Urobilinogen Normal (Normal)
[2025-03-07 15:56] LABS: Bacteria 1+ /hpf (None Seen); White Blood Cells >100 SEEN /hpf (0-5)
--- NOTE | 2025-03-07 16:15 | HP.PCM.HOS_ITS ---
HPI - General General Date of Admission: 03/07/25 Date of Service: 03/07/25 Chief Complaint: Falls, debility, adult FTT HPI Narrative The patient is a 75 y/o F w/ PMHx: Hx Multinodular thyroid, Anxiety and Depression, Hx BPPV, OA, HTN, HLD, Former tobacco use, Chronic anemia/Fe deficiency anemia, PAD/PVD, carotid disease, CKD stage III unclear subtype based on GFR trending, Diabetes mellitus type II with chronic neuropathy with history of diabetic wounds who presents to the [facility] ED on 03/07/25 with history of recurrent falls over this last week noting that she had slipped and fell even as far away as 1 week ago and had been on the ground all night till the family came but was not evaluated at that time and again 3 days previously as well as on morning on day of presentation slipping out of bed onto the floor with no trauma to the head or loss of consciousness but she is on Plavix reported that she been on the ground for several hours until her brother was eventually called and came over with EMS and given inability to care for herself safely with frequent falls prompted family to bring her to the ED for evaluation. Workup in the ED included T98, heart rate 72, BP 113/51, respiratory rate 18, 95% on room air with most recent repeat labs heart rate 69, BP 180/92, respiratory rate 18, 99% on room air, CBC with WBC 14.7, hemoglobin 8.7, MCV 88.6, platelet 216 with left shift and lymphopenia, BMP with BUN/creatinine 130/2.54, GFR 19, glucose 178, total creatinine kinase 837, urine cloudy, specific gravity 1.015, urine protein 30, ketone 5, occult blood 150, positive nitrate, leukocyte Estrace 500 with urine WBCs greater than 100 with 1+ urine bacteria, urine culture pending per ED, chest x-ray with no acute cardiopulmonary findings, plain film of the left hip with no acute fracture, EKG with sinus rhythm with no acute evidence of ischemia, + stool guaiac positive. In the ED patient ministered 1 L normal saline and rocephin 1 gm IV x 1. PFSH Medical History MRSA (methicillin resistant staph aureus) culture positive Depression Diabetes Back pain Vertigo History of pain when walking Hypertension Arthritis Wears dentures Post-menopausal Low iron High cholesterol Easy bruising Neuropathy Dietary restriction Former smoker Cardiology follow-up encounter History of torn meniscus of left knee Carotid artery stenosis Essential hypertension Skin lesion Hammer toe of left foot Osteomyelitis Chronic kidney disease, stage 3 Atherosclerosis of coronary artery of [place] heart without angina pectoris Hyperlipidemia Peripheral vascular occlusive disease Hammer toe of second toe of left foot Hallux valgus (acquired), right foot Healed ulcer of left foot on examination Chronic ulcer of left foot with fat layer exposed Delayed wound healing Malnutrition Osteomyelitis of foot 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 Methicillin resistant Staphylococcus aureus infection Chronic osteomyelitis of left foot Non-healing ulcer of right foot DM2 (diabetes mellitus, type 2) Home Medications ?Medication ?Instructions ?Recorded ?Last Taken ?Type aspirin 81 mg tablet,delayed 81 mg PO QHS 01/13/1411/03 History release multivitamin with folic acid 400 1 tab PO DAILY 11/14/16 History mcg tablet simvastatin 40 mg tablet 40 mg PO QHS 05/31/16 History omega-3 fatty acids-fish oil 340 1 ea PO DAILY 6 08/27/16 History mg-1,000 mg capsule ferrous sulfate 325 mg (65 mg 325 mg PO DAILY 08/15/18 Unknown History iron) tablet ascorbic acid (vitamin C) 500 mg 1,000 mg PO LUNCH 06/08 Unknown History tablet calcium carbonate (Calcium 600) 600 mg PO DAILY Unknown History docusate sodium 100 mg capsule 100 mg PO BID 12/29/21 Unknown History hydrochlorothiazide 25 mg tablet 25 mg PO QAM 02/07/22 Unknown History metformin 500 mg tablet 500 mg PO BID 06/29/22 Unkno wn History cranberry extract 500 mg capsule 500 mg PO DINNER 07/21 Unknown History clopidogrel 75 mg tablet 75 mg PO DAILY #90 tabs 04/11 Unknown Rx metoprolol succinate 50 mg 50 mg PO DAILY #90 tabs 04/11 Unknown Rx tablet,extended release 24 hr amlodipine 10 mg tablet 10 mg PO DAILY Please hold R X 12/25/24 Unknown Rx until pt calls #90 tabs doxycycline hyclate 100 mg capsule 100 mg PO BID 2 wealbert ks #28 caps 02/19/25 Unknown Rx Lactobacillus acidophilus 600 mg PO QDAY 03/07/25 Unkn own History (Acidophilus capsule) glimepiride 4 mg tablet 4 mg PO DAILY 03/07/25 Unkno wn History lisinopril 20 mg tablet 20 mg PO DAILY 03/07/25 Unkn own History pregabalin 100 mg capsule 100 mg PO TID 03/07/25 Unkno wn History Allergy/AdvReac Type Severity Reaction Status Date / Time Sulfa (Sulfonamide Allergy Unknown Verified 03/07/25 13:44 Antibiotics) Family History (Updated 03/07/25 @ 17:[address] Maddie Merchant MD) Father CAD (coronary artery disease) Heart disease Hypertension CVA (cerebral vascular accident) Mother COPD (chronic obstructive pulmonary disease) Hypertension Heart disease Heart failure Surgical History History of repair of left rotator cuff History of total left knee replacement (~2014) History of angioplasty of peripheral vessel (~2012) amputation left toe History of left heart catheterization (~01/20/14) Social History (Updated 03/07/25 @ 17:[address] Maddie Merchant MD) household members: none Smoking Status: Former smoker how long ago did patient quit smokin years ago alcohol intake: never substance use type: does not use caffeine: No ROS ROS Narrative Admission Review of Systems: CONSTITUTIONAL: No weight loss, fever, chills, weakness or fatigue. HEENT: Eyes: No visual loss, blurred vision, double vision or yellow sclerae. Ears, Nose, Throat: No hearing loss, sneezing, congestion, runny nose or sore throat. SKIN: No rash or itching, lesions except + notable bilateral lower extremity chronic foot wounds following with podiatry. CARDIOVASCULAR: No chest pain, chest pressure or chest discomfort, palpitations, edema, orthopnea, syncopal events. RESPIRATORY: No shortness of breath, cough or sputum, wheezing, hemoptysis. GASTROINTESTINAL: + Decreased oral intake/anorexia. No nausea, vomiting or diarrhea, abdominal pain, melena, BRBPR. GENITOURINARY: + Decreased urine output. No dysuria, frequency, urgency or retention. NEUROLOGICAL: + Chronic neuropathy, frequent falls. No headache, dizziness, syncope, paralysis, ataxia, numbness or tingling in the extremities, focal weakness, change in bowel or bladder control, seizure. MUSCULOSKELETAL: No muscle, back pain, joint pain or stiffness. HEMATOLOGIC: + Chronic anemia, easy bleeding/bruising. LYMPHATICS: No enlarged nodes. No history of splenectomy. PSYCHIATRIC: No history of depression or anxiety. ENDOCRINOLOGIC: No reports of sweating, cold or heat intolerance. No polyuria or polydipsia. ALLERGIES: No history of asthma, hives, eczema or rhinitis. Vital Signs Vital Signs Vital Signs: 03/07/25 13:42 03/07/25 13:45 03/07/25 15:36 Temperature 98 F Temperature Source Oral Pulse Rate 72 69 Respiratory Rate 18 18 Respiratory Effort Normal Non-Labored Respiratory Depth Normal Respiratory Pattern Normal Blood Pressure 113/51 L 118/92 H Blood Pressure Mean 71 100 Pulse Ox 95 99 Oxygen Delivery Method Room Air Room Air Room Air Weight Weight: 171 lb 1.259 oz Body Mass Index (BMI) 27.6 Results Lab / Micro Data 03/07/25 14:05 03/07/25 14:05 Labs: Laboratory Results - last 24 hr 03/07/25 14:05: WBC 14.7 H, RBC 3.07 L, Hgb 8.7 L, Hct 27.2 L, MCV 88.6, MCH 28.3, MCHC 32.0, RDW Std Deviation 45.6 H, RDW Coeff of Jorgito 14.5, Plt Count 216, MPV 11.3, Immature Gran % (Auto) 1.000 H, Neut % (Auto) 87.8 H, Lymph % (Auto) 5.2 L, Bailey % (Auto) 5.3, Eos % (Auto) 0.4, Baso % (Auto) 0.3, Absolute Neuts (auto) 12.9 H, Absolute Lymphs (auto) 0.76 L, Nucleated RBC % 0, Sodium 140, Potassium 4.5, Chloride 105, Carbon Dioxide 16.8 L, Anion Gap 18 H, BUN 130 H*, Creatinine 2.54 H, Estim Creat Clear Calc 20.75 L, Est GFR (MDRD) Non-Af 19 L, B UN/Creatinine Ratio 51.2 H, Glucose 178 H, Calcium 8.8, Total Creatine Kinase 837 H 03/07/25 15:20: Urine Color Yellow, Urine Clarity Cloudy, Urine pH 6.0, Ur Specific [place] 1.015, Urine Protein 30 H, Urine Glucose (UA) Normal, Urine Ketones 5 H, Urine Occult Blood 150 H, Urine Nitrite Positive H, Urine Bilirubin Negative, Urine Urobilinogen Normal, Ur Leukocyte Esterase 500 H, Urine RBC 0 SEEN, Urine WBC >100 SEEN, Ur Squamous Epith Cells 0 SEEN, Urine Bacteria 1+, Urine Mucus 0 SEEN Micro: Microbiology 03/07/25 15:45 Stool Stool Occult Blood (ERICA) - Final Occult Blood Positive Imaging Radiology Impression Hip/Pelvis X-Ray 03/07/25 13:53 IMPRESSION: No obvious acute fracture given limitations. Reading Location: [facility] Chest X-Ray 03/07/25 14:55 IMPRESSION: No Acute Findings. Reading Location: [facility] Assessment & Plan Assessment/Plan (1) Chronic wound of extremity: (2) Acute UTI: (3) Rhabdomyolysis: (4) SHAYY (acute kidney injury): PLAN: Plan The patient is a 75 y/o F w/ PMHx: Hx Multinodular thyroid, Anxiety and Depression, Hx BPPV, OA, HTN, HLD, Former tobacco use, Chronic anemia/Fe deficiency anemia, PAD/PVD, carotid disease, CKD stage III unclear subtype based on GFR trending, Diabetes mellitus type II with chronic neuropathy with history of diabetic wounds who presents to the [facility] ED on 03/07/25 with history of recurrent falls over this last week noting that she had slipped and fell even as far away as 1 week ago and had been on the ground all night till the family came but was not evaluated at that time and again 3 days previously as well as on morning on day of presentation slipping out of bed onto the floor with no trauma to the head or loss of consciousness but she is on Plavix reported that she been on the ground for several hours until her brother was eventually called and came over with EMS and given inability to care for herself safely with frequent falls prompted family to bring her to the ED for evaluation. #1. Frequent falls, L hip pain, adult failure to thrive, debility complicated by #2, #3, #4, #5: Given significant weakness and debility with frequent falls over the last week with concurrent acute kidney injury, mild rhabdo and as noted possible urinary tract infection will admit to medical surgical floor, maintain on fall precautions, continue hydration, monitor urine output, trend renal function, monitor creatinine kinase, continue Rocephin as noted for UTI pending further culture results, will trial topical agents for left hip first however may need adjustment pending #5 evaluation as noted, PT/OT/case management consulted for discharge planning and at this point given patient's significant risk for return to home and recurrent falls would benefit from skilled facility placement likely. #2. SHAYY on Chronic Kidney Disease Stage III, unclear subtype per previous GFR trending and chart: Admission BUN/Cr 130/2.54, baseline renal function previously 1.3-1.7 however these labs are remote and last noted was in 2019 with creatinine 1.70 at that time but certainly suspect this is primarily acute kidney injury related given significantly elevated BUN but certainly could have progressed, will continue aggressive hydration, hold nephrotoxic medication and we will plan to repeat BMP in AM to further elucidate current chronicity. #3. Acute rhabdomyolysis: Admission total creatinine kinase 837, concurrent noted acute kidney injury, will obtain hepatic profile to be cautious, will continue aggressive hydration, trend creatinine kinase, offload and position change, monitor urine output, repeat renal function concurrently as noted, increase fluids as needed if urine output not ideal. Will temporarily hold statin therapy until rhabdo resolved. #4. Acute Complicated Urinary Tract Infection: UA upon ED evaluation remarkable, pending UCx, continue IVFs, monitor I/Os, continue IV Rocephin w/ transition as able pending sensitivities and speciation. #5. Concern for potential acute on chronic normocytic anemia/iron deficiency anemia with incidentally noted positive stool guaiac: Admission hemoglobin 8.7, MCV 88.6, baseline hemoglobin previously had been primarily 9-10 range however labs are remote and last as noted in 2020, positive stool guaiac, will hold chemoprophylaxis, will temporally hold Plavix and aspirin but if hemoglobin remained stable may require re-addition of at least 1 agent given underlying PAD, will cycle H+H, will obtain iron panel, ferritin, vitamin B12 and folic acid levels, obtain T+S, repeat CBC in AM to further elucidate chronicity at this staging, maintain on IV PPI in the interim. If Hgb decreasing will transition to clears then NPO status and consult Gastroenterology. #6. Chronic diabetic foot wounds with left lower extremity recent fifth digit osteomyelitis complicated by underlying PAD/PVD: Recently noted pathology per Dr. Membreno 02/17/25 left foot fifth digit with evidence of osteomyelitis and periosteal supportive inflammation, most recent microbiology noted 02/26/2025 with anaerobic culture with anaerobic cocci, wound culture with MRSA sensitive to doxycycline which the patient is on, will continue regimen, offloading, discussed case with Podiatry who will be consulted and evaluate her given appearance concerns and poor follow-up. Discussed case with Dr. Irene. #7. PAD/PVD: Status post peripheral angioplasty 2012, temporarily hold aspirin/Plavix given positive stool guaiac noted in the ED with unclear exact recent hemoglobin baseline as noted, hypertensive regimen with adjustments as noted given SHAYY/rhabdo, diabetic regimen with adjustments as noted. Temporarily hold statin therapy until rhabdo resolved. Recent evaluation with 01/06/2025 JEFFREY/PVR per her die repair Dr. Membreno with noted right JEFFREY 0.73 with moderate arterial insufficiency and left JEFFREY 0.84 with moderate arterial insufficiency with pressures revealing aortoiliac disease, on the right specifically proximal femoral disease also. #8. Diabetes mellitus type II with chronic neuropathy with history of diabetic foot wounds, recent L foot wound as noted above: Hold oral home regimen, hemoglobin A1c requested as last noted 04/08/20 with hemoglobin A1c 6.1% thus remote, ADA diet, accu checks w/ ISS, continue home gabapentin regimen. #9. Carotid disease: Continue hypertensive regimen with adjustments as noted given SHAYY/rhabdo, diabetic regimen with adjustments as noted. Will temporally hold aspirin/Plavix given positive stool guaiac with unclear baseline hemoglobin with potential acute on chronic anemia. Will temporarily hold statin therapy until rhabdo resolved. #10. Hypertension: Continue home regimen including metoprolol, amlodipine with hold parameters as needed, PRN hydralazine. Holding lisinopril and hydrochlorothiazide given SHAYY as noted and need for hydration given rhabdo as well. #11. Hyperlipidemia: Temporarily hold statin therapy until rhabdo resolved. #12. Multinodular thyroid: Previously had followed with Dr. Moscoso status post ultrasound fine-needle aspiration of to the right sided nodules on the left side 04/18/2024 with all pathology noted to be benign follicular/colloid nodules, encourage continued outpatient follow-up as previously arranged. #13. Anxiety and depression: Per current list on a regimen, encourage continued outpatient evaluation and counseling/medications as appropriate. #14. Former tobacco use: Encourage continued tobacco cessation. #15. DVT prophylaxis: SCDs, defer chemoprophylaxis given positive guaiac of unclear exact significance. #16. CODE status: Patient VICTOR MANUEL is her sister and living will is currently in place. Discussed CODE status at length including difference between FULL code, DNR-CCA and DNR-CC status. Following discussions about the differences in these status, requested Full Code status. Advanced Care Planning Face to Face Time: 16 minutes. Charges/Coding Visit Charges Inpatient E&M: 07947 Init Hosp L3 Procedures Hospitalists Procedures: 93383 Advncd Care Plan 30 Min
[2025-03-07] MEDS: Ceftriaxone 1 GM/50 ML BAG IV (16:51)
[2025-03-07 18:51] LABS: AST(SGOT) 52 U/L (<=31); Alanine Aminotransfer ALT/SGPT 60 U/L (<=34); Albumin, Serum 3.1 g/dL (3.4-4.8); Alkaline Phosphatase 66 U/L (35-104); Bilirubin, Direct 0.25 mg/dL (0.00-0.30); Globulin 2.8 g/dL (2.2-4.2); Magnesium 2.9 mg/dL (1.5-2.2); Protein, Total 5.9 g/dL (5.9-8.4); Total Bilirubin 0.42 mg/dL (0.00-1.30)
[2025-03-07] MEDS: 0.9% Normal Saline (1000mL) 1,000 ML 125 ML IV (19:20)
[2025-03-07 22:37] LABS: Hemoglobin 8.3 g/dL (12.0-15.0)
[2025-03-07] MEDS: Aspirin 81 MG TAB.CHEW PO (23:03)
[2025-03-07] MEDS: Doxycycline 100 MG CAPSULE PO (23:03)
[2025-03-07] MEDS: Docusate Sodium 100 MG Capsule PO (23:03)
[2025-03-07] MEDS: Acetaminophen 325 MG Tablet 650 MG PO (23:03)
[2025-03-07] MEDS: Arthritis Pain Compound 60 CLICK TUBE TOPICAL (23:03)
[2025-03-07] MEDS: Menthol/Lanolin/Calamine/Znox 113 GM Tube 1 APPLIC TOPICAL (23:04)
[2025-03-07] MEDS: Pregabalin 50 MG Capsule 100 MG PO (23:06)
[2025-03-07] MEDS: Insulin Lispro 100 UNIT/ML INSULN.PEN SC (23:12)
[2025-03-08 00:03] LABS: Bedside Glucose 283 mg/dL (74-106)
[2025-03-08 02:22] LABS: Hemoglobin 7.7 g/dL (12.0-15.0)
[2025-03-08] MEDS: 0.9% Normal Saline (1000mL) 1,000 ML 125 ML IV (03:20)
[2025-03-08 04:40] VITALS: BP 117/52; PULSE 67; RESP 18; TEMP 36.5; O2SAT 95
[2025-03-08] MEDS: Acetaminophen 325 MG Tablet 650 MG PO ×3 (04:49→17:08)
[2025-03-08 05:16] VITALS: BMI 26.4
[2025-03-08 06:31] LABS: Absolute Lymphocyte Count 1.08 X10^3/uL (0.83-4.51); Absolute Neutrophil Count 7.1 X10^3/uL (2.0-7.7); Basophil# 0.04 X10^3/uL; Basophil% 0.4 % (0-1); Eosinophil# 0.15 X10^3/uL; Eosinophils% 1.6 % (0-5); Hematocrit 25.1 % (37-47); Hemoglobin 7.9 g/dL (12.0-15.0); Lymphocyte # 1.08 X10^3/ul (0.83-4.51); Lymphocyte % 11.7 % (19-41); Mean Corp Hgb Conc 31.5 g/dL (32-36); Mean Corpuscular Hgb 28.2 pg (27.0-32.0); Mean Corpuscular Volume 89.6 fL (81-99); Mean Platelet Vol. 11.6 fl (6.2-12.0); Monocyte# 0.84 X10^3/uL; Monocyte% 9.1 % (0-10); NRBC Flagged by Analyzer 0 % (0-5); Neutrophil # 7.05 X10^3/uL (2.7-7.7); Neutrophil % 76.5 % (47-70); Platelet Count 185 K/mm3 (150-450); RBC Distribution Width CV 14.5 % (11.6-14.6); RBC Distribution Width SD 46.7 fl (35.1-43.9); White Blood Count 9.2 K/mm3 (4.4-11.0)
[2025-03-08] MEDS: Insulin Lispro 100 UNIT/ML INSULN.PEN SC ×4 (06:51→20:53)
[2025-03-08 07:09] LABS: Iron 18 ug/dL (50-170); Iron Binding Capacity,Unsat 150 ug/dL (228-428)
[2025-03-08 07:27] LABS: Bedside Glucose 159 mg/dL (74-106)
[2025-03-08 07:38] LABS: Ferritin 270 ng/mL (22-378); Vitamin B12 3538 pg/mL (180-914)
--- NOTE | 2025-03-08 07:40 | PN.HOSP_ITS ---
Reason for Visit Reason for Visit: Diagnoses Rhabdomyolysis (03/07/25) Acute kidney failure, unspecified (03/07/25) Urinary tract infection, site not specified (03/07/25) Objective Data Objective Data Vital Signs: Vital Signs Temp Pulse Resp BP Pulse Ox O2 Del Method 97.7 F L 67 18 117/52 L 95 Room Air 03/08/25 04:40 03/08/25 04:40 03/08/25 04:40 03/08/25 04:40 03/08/25 04:40 03/08/25 04:40 Oxygen Delivery Method Room Air Weight: 164 lb 7.437 oz Body Mass Index (BMI) 26.4 Intake & Output: Intake and Output for Last 24 Hours 03/06/25 03/07/25 03/08/25 23:59 23:59 23:59 Intake Total 1050 / 1050 1000 / 1000 Output Total 250 / 800 800 / 800 Balance 800 / 250 200 / 200 Lab / Micro Data 03/08/25 05:55 03/08/25 05:55 Labs: Laboratory Results - last 24 hr 03/07/25 14:05: WBC 14.7 H, RBC 3.07 L, Hgb 8.7 L, Hct 27.2 L, MCV 88.6, MCH 28.3, MCHC 32.0, RDW Std Deviation 45.6 H, RDW Coeff of Jorgito 14.5, Plt Count 216, MPV 11.3, Immature Gran % (Auto) 1.000 H, Neut % (Auto) 87.8 H, Lymph % (Auto) 5.2 L, [place] % (Auto) 5.3, Eos % (Auto) 0.4, Baso % (Auto) 0.3, Absolute Neuts (auto) 12.9 H, Absolute Lymphs (auto) 0.76 L, Nucleated RBC % 0, Sodium 140, Potassium 4.5, Chloride 105, Carbon Dioxide 16.8 L, Anion Gap 18 H, BUN 130 H*, Creatinine 2.54 H, Estim Creat Clear Calc 20.75 L, Est GFR (MDRD) Non-Af 19 L, B UN/Creatinine Ratio 51.2 H, Glucose 178 H, Calcium 8.8, Phosphorus 5.0 H, M agnesium 2.9 H, Total Bilirubin 0.42, Direct Bilirubin 0.25, AST 52 H, ALT 60 H, Alkaline Phosphatase 66, Total Creatine Kinase 837 H, Total Protein 5.9, Albumin 3.1 L, Globulin 2.8 03/07/25 15:20: Urine Color Yellow, Urine Clarity Cloudy, Urine pH 6.0, Ur Specific [place] 1.015, Urine Protein 30 H, Urine Glucose (UA) Normal, Urine Ketones 5 H, Urine Occult Blood 150 H, Urine Nitrite Positive H, Urine Bilirubin Negative, Urine Urobilinogen Normal, Ur Leukocyte Esterase 500 H, Urine RBC 0 SEEN, Urine WBC >100 SEEN, Ur Squamous Epith Cells 0 SEEN, Urine Bacteria 1+, Urine Mucus 0 SEEN 03/07/25 18:23: Blood Type A POSITIVE, Antibody Screen NEGATIVE 03/07/25 22:30: Hgb 8.3 L, Hct 25.0 L 03/07/25 23:01: POC Glucose 283 H 03/08/25 02:08: Hgb 7.7 L, Hct 24.0 L 03/08/25 05:55: WBC 9.2, RBC 2.80 L, Hgb 7.9 L, Hct 25.1 L, MCV 89.6, MCH 28.2, MCHC 31.5 L, RDW Std Deviation 46.7 H, RDW Coeff of Jorgito 14.5, Plt Count 185, MPV 11.6, Immature Gran % (Auto) 0.700, Neut % (Auto) 76.5 H, Lymph % (Auto) 11.7 L, [place] % (Auto) 9.1, Eos % (Auto) 1.6, Baso % (Auto) 0.4, Absolute Neuts (auto) 7.1, Absolute Lymphs (auto) 1.08, Nucleated RBC % 0, Iron 18 L, Iron Saturation 11.0 L, Unsaturated IBC 150 L, Ferritin 270, Vitamin B12 3538 H 03/08/25 06:50: POC Glucose 159 H Micro: Microbiology 03/07/25 15:45 Stool Stool Occult Blood (ERICA) - Final Occult Blood Positive Radiography Diagnostic Testing: Radiology Impression Hip/Pelvis X-Ray 03/07/25 13:53 IMPRESSION: No obvious acute fracture given limitations. Reading Location: [facility] Chest X-Ray 03/07/25 14:55 IMPRESSION: No Acute Findings. Reading Location: [facility] Physical Exam Narrative Seen and examined. Patient is chronically debilitated with a diabetic ulcer in lower extremities, swelling and pain. Is being followed by pharmacy resident Dr. Irene in wound center. Suspected peripheral artery disease. Patient stated that she is ambulatory on walker. Physical exam General: Alert, Oriented x3, Cooperative. BMI 26.5 kg/m? HEENT: Atraumatic, PERRLA, EOMI, Normocephalic Oral: No Gingival or Mucosal Lesions/ Ulcerations Neck: Supple, No JVD, Negative Carotid Bruits Chest wall/Lungs: Air entry diminished in bilateral lung bases. No crepitation/rhonchi Cardiovascular: Regular rate, Regular Rhythm, Normal S1, Normal S2, DP and PT pulses are faintly palpable on both lower extremities. Abdomen: Bowel Sounds Present, Soft, Non Tender, Non-Distended : No dysuria. No renal angle tenderness. No suprapubic tenderness. Extremities: No edema, Capillary Refill Less than 3 Seconds Skin: Chronic ulcer present on the left heel large, unstageable. Dry eschar to the right lateral heel unstageable. Mild bruise upper gluteal region. Multiple amputation of the toes. Musculoskeletal: Moderate muscle atrophy of extremities, intervertebral muscle. Mild malnutrition. Neurological: Cranial nerves II-XII grossly intact, DTR 2+/4. No acute focal neurological deficit. Psych/Mental Status: Flat affect Assessment & Plan Assessment/Plan (1) Chronic wound of extremity: (2) Acute UTI: (3) Rhabdomyolysis: (4) SHAYY (acute kidney injury): PLAN: Plan The patient is a 75 y/o F was brought to ED after she slipped and fell 1 week ago and was on the ground all night until family came but was not evaluated. She had near fall situation about 3 days ago, slipped out of the bed onto the floor. Denies hitting her head or LOC. On Plavix. No fever or chills. Shortness of breath. Patient has diabetes mellitus with chronic wounds/ulcers on both feet managed by Dr. Irene, finishing doxycycline prescription #1. Frequent falls, L hip pain, adult failure to thrive, debility : PT and OT. #2. SHAYY on Chronic Kidney Disease Stage III, : Admission BUN/Cr 130/2.54, baseline renal function previously 1.3-1.7 in 2020 with creatinine 1.70 #3. Acute rhabdomyolysis: Admission total creatinine kinase 837, repeat CK ordered #4. Acute Complicated Urinary Tract Infection: UA upon ED evaluation remarkable, pending UCx, continue IVFs, monitor I/Os, continue IV Rocephin w/ transition as able pending sensitivities and speciation. #5. Anemia of chronic disease: Patient has low serum iron, TIBC and low unsaturated iron therefore anemia of chronic disease. Ferritin is high. Patient admitted with H&H 8.3/25%, most recent 7.9/25% it was about 11 to 12 g back in June 2021. #6. Chronic diabetic foot wounds with left lower extremity recent fifth digit osteomyelitis complicated by underlying PAD/PVD: Recently noted pathology per Dr. Membreno 02/17/25 left foot fifth digit with evidence of osteomyelitis and periosteal supportive inflammation, most recent microbiology noted 02/26/2025 with anaerobic culture with anaerobic cocci, wound culture with MRSA sensitive to doxycycline: Continue doxycycline. Conservative management with offloading. Discussed case with Dr. Irene. #7. PAD/PVD: Status post peripheral angioplasty 2012: Occult blood positive. Hemoglobin about 8. Baby aspirin continued. Continue Plavix as the risk for thrombosis and critical ischemia of leg is high Recent evaluation with 01/06/2025 JEFFREY/PVR noted right JEFFREY 0.73 with moderate arterial insufficiency and left JEFFREY 0.84 with moderate arterial insufficiency with pressures revealing aortoiliac disease, on the right specifically proximal femoral disease also. #8. Diabetes mellitus type II with chronic neuropathy with history of diabetic foot wounds, recent L foot wound as noted above: Hold oral home regimen, hemoglobin A1c requested as last noted 04/08/20 with hemoglobin A1c 6.1% thus remote, ADA diet, accu checks w/ ISS, continue home gabapentin regimen. #9. Carotid disease: Continue hypertensive regimen with adjustments as noted given SHAYY/rhabdo, diabetic regimen with adjustments as noted. Will temporally hold aspirin/Plavix given positive stool guaiac with unclear baseline hemoglobin with potential acute on chronic anemia. Will temporarily hold statin therapy until rhabdo resolved. #10. Hypertension: Continue home regimen including metoprolol, amlodipine with hold parameters as needed, PRN hydralazine. Holding lisinopril and hydrochlorothiazide given SHAYY as noted and need for hydration given rhabdo as well. #11. Hyperlipidemia: Temporarily hold statin therapy until rhabdo resolved. #12. Multinodular thyroid: Previously had followed with Dr. Moscoso status post ultrasound fine-needle aspiration of to the right sided nodules on the left side 04/18/2024 with all pathology noted to be benign follicular/colloid nodules, encourage continued outpatient follow-up as previously arranged. #13. Anxiety and depression: Per current list on a regimen, encourage continued outpatient evaluation and counseling/medications as appropriate. #14. Former tobacco use: Encourage continued tobacco cessation. #15. DVT prophylaxis: SCDs, defer chemoprophylaxis given positive guaiac of unclear exact significance. #16. CODE status: Patient VICTOR MANUEL is her sister and living will is currently in place. Discussed CODE status at length including difference between FULL code, DNR-CCA and DNR-CC status. Following discussions about the differences in these status, requested Full Code status. Charges/Coding Visit Charges Inpatient E&M: 98689 Subs Hosp L2 Multi Select Codes Visit Charges Visit Charges: 56700 Subs Hosp L2
[2025-03-08 07:42] VITALS: BP 105/48; PULSE 64; RESP 18; TEMP 36.5; O2SAT 98
[2025-03-08 07:45] VITALS: O2SAT 98
[2025-03-08] MEDS: Docusate Sodium 100 MG Capsule PO ×2 (07:53→20:47)
[2025-03-08] MEDS: Clopidogrel Bisulfate 75 MG Tablet PO (07:53)
[2025-03-08] MEDS: Doxycycline 100 MG CAPSULE PO ×2 (07:53→20:47)
[2025-03-08] MEDS: Lactobacillis Acidophilus 1 CAP PO (07:54)
[2025-03-08] MEDS: Arthritis Pain Compound 60 CLICK TUBE TOPICAL ×2 (07:55→20:48)
[2025-03-08] MEDS: Menthol/Lanolin/Calamine/Znox 113 GM Tube 1 APPLIC TOPICAL ×2 (07:55→20:48)
[2025-03-08] MEDS: Pregabalin 50 MG Capsule 100 MG PO ×3 (07:55→17:08)
[2025-03-08 08:10] LABS: Hemoglobin A1c 6.5 % (<=5.6)
[2025-03-08 08:42] LABS: CPK Total, Creatine Kinase 736 U/L (24-195)
[2025-03-08 08:46] LABS: ALB/GLOB Ratio 1.1 RATIO (0.9-2.4); AST(SGOT) 45 U/L (<=31); Alanine Aminotransfer ALT/SGPT 48 U/L (<=34); Albumin, Serum 2.6 g/dL (3.4-4.8); Alkaline Phosphatase 58 U/L (35-104); Anion Gap 14 (5-15); BUN 106 mg/dL (4-19); BUN/Creat Ratio 52.5 RATIO (10-20); Calcium,Total 8.1 mg/dL (7.6-11.0); Carbon Dioxide 17.3 mmol/L (21.0-32.0); Chloride 111 mmol/L (98-108); Creatinine, Serum 2.02 mg/dL (0.70-1.20); EST Glomerular Filtration Rate 26 (>60); Estimated Creatinine Clearance 25.62 ml/min (50-250); Globulin 2.4 g/dL (2.2-4.2); Glucose 172 mg/dL (70-99); Potassium 3.8 mmol/L (3.3-5.1); Protein, Total 5.1 g/dL (5.9-8.4); Sodium Level 143 mmol/L (133-145); Total Bilirubin 0.25 mg/dL (0.00-1.30)
--- NOTE | 2025-03-08 08:52 | PCM.CONS.GEN ---
Assessment & Plan Assessment/Plan (1) Unstageable pressure injury of left lower leg: PLAN: Patient was examined and evaluated. All findings were discussed with the patient. All questions were answered to the patient satisfaction. After physical examination and review of the patient's wounds to the bilateral lower extremity, the patient has unstageable ulcers to the left heel and right heel. No debridement was done at bedside today as the patient is still showing delayed healing. All eschars were dressed with Betadine soaked gauze and dry sterile dressing and a very light 6 inch Marino bandage was applied to hold the dry sterile dressing intact. Wound care orders are in. The patient's bilateral extremity was offloaded with blankets and pillows as her heels need to be floating free while in the hospital bed. Arterial Studies, (01/06/2025): Show evidence of bilateral monophasic pulses to the level of the posterior tibial and dorsalis pedis arteries. There is also evidence of decreased blood flow to the bilateral lower extremity. The right JEFFREY is 0.73, left JEFFREY is 0.84. Right TBI is 0.30. Left TBI is 0.21. Overall there is evidence of moderate arterial insufficiency bilateral. 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 Will continue local wound care per nursing assistance. Will plan for surgical care when the patient is discharged and optimized. Recommend SNF due to the patient living alone and unable to care for herself independently. Podiatry will continue to follow while patient is in house. Please reach out to Dr. Irene any questions or concerns. (2) Unstageable pressure injury of right lower leg: (3) Chronic painful diabetic polyneuropathy: (4) Other specified peripheral vascular diseases: HPI Consult Data Date of Consult: 03/08/25 HPI Narrative Reason for Consultation: Bilateral lower extremity full-thickness wounds. HPI Narrative: KIMBERLY NEWMAN, is a 75 F with a past medical history of hypertension, hyperlipidemia, diabetes type 2 peripheral neuropathy, CKD, chronic diabetes wounds to the bilateral lower extremity presented to emergency room with history of recurring falls. Patient states that she slipped and fell approximately 1 week ago and was on the ground all night until her family came to get her off the ground. Since then the patient did fall 3 days ago and denies hitting her head. She states that she was getting up on a step and had her shoe slipped out from underneath her causing her to fall on the ground. She states that prior to her admission she was on the ground for a couple of hours the previous morning until she called her brother who came over to get her up off the floor and called the EMS to have her presented today for evaluation and admission. Patient does live alone. Patient is unsure why she is falling as she has not had problems with this in the past. She denies any constitutional symptoms. Podiatry was consulted for bilateral full-thickness wounds to the bilateral lower extremity. No other pedal complaints at this time. [facility] Medical History MRSA (methicillin resistant staph aureus) culture positive Depression Diabetes Back pain Vertigo History of pain when walking Hypertension Arthritis Wears dentures Post-menopausal Low iron High cholesterol Easy bruising Neuropathy Dietary restriction Former smoker Cardiology follow-up encounter History of torn meniscus of left knee Carotid artery stenosis Essential hypertension Skin lesion Hammer toe of left foot Osteomyelitis Chronic kidney disease, stage 3 Atherosclerosis of coronary artery of [place] heart without angina pectoris Hyperlipidemia Peripheral vascular occlusive disease Hammer toe of second toe of left foot Hallux valgus (acquired), right foot Healed ulcer of left foot on examination Chronic ulcer of left foot with fat layer exposed Delayed wound healing Malnutrition Osteomyelitis of foot 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 Methicillin resistant Staphylococcus aureus infection Chronic osteomyelitis of left foot Non-healing ulcer of right foot DM2 (diabetes mellitus, type 2) Home Medications ?Medication ?Instructions ?Recorded ?Last Taken ?Type aspirin 81 mg tablet,delayed 81 mg PO QHS 01/13/14 08/30/16 History release multivitamin with folic acid 400 1 tab PO DAILY 01/13/14 11/14/16 History mcg tablet simvastatin 40 mg tablet 40 mg PO QHS 05/31/16 08/30/16 History omega-3 fatty acids-fish oil 340 1 ea PO DAILY 06/29/16 08/27/16 History mg-1,000 mg capsule ferrous sulfate 325 mg (65 mg 325 mg PO DAILY 08/15/18 Unknown History iron) tablet ascorbic acid (vitamin C) 500 mg 1,000 mg PO LUNCH 11/25/20 Unknown History tablet calcium carbonate (Calcium 600) 600 mg PO DAILY 12/29/21 Unknown History docusate sodium 100 mg capsule 100 mg PO BID 12/29/21 Unknown History hydrochlorothiazide 25 mg tablet 25 mg PO QAM 02/07/22 Unknown History metformin 500 mg tablet 500 mg PO BID 06/29/22 Unknown History cranberry extract 500 mg capsule 500 mg PO DINNER 08/08/22 Unknown History clopidogrel 75 mg tablet 75 mg PO DAILY #90 tabs 10/23/24 Unknown Rx metoprolol succinate 50 mg 50 mg PO DAILY #90 tabs 10/23/24 Unknown Rx tablet,extended release 24 hr amlodipine 10 mg tablet 10 mg PO DAILY Please hold RX 12/25/24 Unknown Rx until pt calls #90 tabs doxycycline hyclate 100 mg capsule 100 mg PO BID 2 weeks #28 caps 02/19/25 Unknown Rx Lactobacillus acidophilus 600 mg PO QDAY 03/07/25 Unknown History (Acidophilus capsule) glimepiride 4 mg tablet 4 mg PO DAILY 03/07/25 Unknown History lisinopril 20 mg tablet 20 mg PO DAILY 03/07/25 Unknown History pregabalin 100 mg capsule 100 mg PO TID 03/07/25 Unknown History Allergy/AdvReac Type Severity Reaction Status Date / Time Sulfa (Sulfonamide Allergy Unknown Verified 03/07/25 13:44 Antibiotics) Family History Father CAD (coronary artery disease) Heart disease Hypertension CVA (cerebral vascular accident) Mother COPD (chronic obstructive pulmonary disease) Hypertension Heart disease Heart failure Surgical History History of repair of left rotator cuff History of total left knee replacement (~2014) History of angioplasty of peripheral vessel (~2012) amputation left toe History of left heart catheterization (~01/20/14) Social History household members: none Smoking Status: Former smoker how long ago did patient quit smokin years ago alcohol intake: never substance use type: does not use caffeine: No Physical Exam Narrative Vascular: DP and PT pulses are faintly palpable to bilateral lower extremity. CFT is brisk. Blanchable erythema appreciated to the bilateral lower extremity. Skin temperature gradient warm to cool from proximal ankle to distal feet bilateral. Neurological: Light touch is intact. Protective station is absent. Patient only responds to painful stimuli to left heel. Dermatological: Dry eschar to the right lateral heel stable with no sign of infection. Dry eschar to the left heel with blanchable periwound erythema no drainage. Mild malodor is appreciated. Evidence of dry eschar to the distal lateral left foot secondary to amputation. Blanchable erythema that has been improving since office visit. No drainage malodor or sign of infection. Musculoskeletal: Multiple amputations to the lesser digits to the bilateral lower extremity. Mild pain on palpation to the left heel with dressing changes. No pain with calf pressure. Const alert, oriented x3 and no apparent distress Lab / Micro Data 03/08/25 05:55 03/08/25 05:55 Labs: Laboratory Results - last 24 hr 03/07/25 14:05: WBC 14.7 H, RBC 3.07 L, Hgb 8.7 L, Hct 27.2 L, MCV 88.6, MCH 28.3, MCHC 32.0, RDW Std Deviation 45.6 H, RDW Coeff of Jorgito 14.5, Plt Count 216, MPV 11.3, Immature Gran % (Auto) 1.000 H, Neut % (Auto) 87.8 H, Lymph % (Auto) 5.2 L, [place] % (Auto) 5.3, Eos % (Auto) 0.4, Baso % (Auto) 0.3, Absolute Neuts (auto) 12.9 H, Absolute Lymphs (auto) 0.76 L, Nucleated RBC % 0, Sodium 140, Potassium 4.5, Chloride 105, Carbon Dioxide 16.8 L, Anion Gap 18 H, BUN 130 H*, Creatinine 2.54 H, Estim Creat Clear Calc 20.75 L, Est GFR (MDRD) Non-Af 19 L, BUN/Creatinine Ratio 51.2 H, Glucose 178 H, Calcium 8.8, Phosphorus 5.0 H, Magnesium 2.9 H, Total Bilirubin 0.42, Direct Bilirubin 0.25, AST 52 H, ALT 60 H, Alkaline Phosphatase 66, Total Creatine Kinase 837 H, Total Protein 5.9, Albumin 3.1 L, Globulin 2.8 03/07/25 15:20: Urine Color Yellow, Urine Clarity Cloudy, Urine pH 6.0, Ur Specific [place] 1.015, Urine Protein 30 H, Urine Glucose (UA) Normal, Urine Ketones 5 H, Urine Occult Blood 150 H, Urine Nitrite Positive H, Urine Bilirubin Negative, Urine Urobilinogen Normal, Ur Leukocyte Esterase 500 H, Urine RBC 0 SEEN, Urine WBC >100 SEEN, Ur Squamous Epith Cells 0 SEEN, Urine Bacteria 1+, Urine Mucus 0 SEEN 03/07/25 18:23: Blood Type A POSITIVE, Antibody Screen NEGATIVE 03/07/25 22:30: Hgb 8.3 L, Hct 25.0 L 03/07/25 23:01: POC Glucose 283 H 03/08/25 02:08: Hgb 7.7 L, Hct 24.0 L 03/08/25 05:55: WBC 9.2, RBC 2.80 L, Hgb 7.9 L, Hct 25.1 L, MCV 89.6, MCH 28.2, MCHC 31.5 L, RDW Std Deviation 46.7 H, RDW Coeff of Jorgito 14.5, Plt Count 185, MPV 11.6, Immature Gran % (Auto) 0.700, Neut % (Auto) 76.5 H, Lymph % (Auto) 11.7 L, [place] % (Auto) 9.1, Eos % (Auto) 1.6, Baso % (Auto) 0.4, Absolute Neuts (auto) 7.1, Absolute Lymphs (auto) 1.08, Nucleated RBC % 0, Sodium 143, Potassium 3.8, Chloride 111 H, Carbon Dioxide 17.3 L, Anion Gap 14, BUN 106 H*, Creatinine 2.02 H, Estim Creat Clear Calc 25.62 L, Est GFR (MDRD) Non-Af 26 L, BUN/Creatinine Ratio 52.5 H, Glucose 172 H, Hemoglobin A1c 6.5 H, Calcium 8.1, Iron 18 L, TIBC TNP, Iron Saturation 11.0 L, Unsaturated IBC 150 L, Ferritin 270, Total Bilirubin 0.25, AST 45 H, ALT 48 H, Alkaline Phosphatase 58, Total Creatine Kinase 736 H, Total Protein 5.1 L, Albumin 2.6 L, Globulin 2.4, Albumin/Globulin Ratio 1.1, Vitamin B12 3538 H 03/08/25 06:50: POC Glucose 159 H Micro: Microbiology 03/07/25 15:45 Stool Stool Occult Blood (ERICA) - Final Occult Blood Positive Imaging Radiology Impression Hip/Pelvis X-Ray 03/07/25 13:53 IMPRESSION: No obvious acute fracture given limitations. Reading Location: [facility] Chest X-Ray 03/07/25 14:55 IMPRESSION: No Acute Findings. Reading Location: [facility]
[2025-03-08] MEDS: Ceftriaxone 1 GM/50 ML BAG IV (09:37)
[2025-03-08] MEDS: 0.9% Saline Lock 10 ML Syringe IV ×2 (09:37→20:47)
[2025-03-08] MEDS: metroNIDAZOLE 500 MG/100 ML BAG 100 MG IV ×2 (10:28→20:49)
[2025-03-08] MEDS: Ferrous Sulfate 325 MG Tablet PO (11:33)
[2025-03-08] MEDS: Ascorbic Acid 500 MG Tablet 1000 MG PO (11:34)
[2025-03-08 14:07] VITALS: BP 101/51; PULSE 59; RESP 16; TEMP 36.7; O2SAT 100
[2025-03-08 15:34] LABS: Bedside Glucose 165 mg/dL (74-106)
[2025-03-08 16:36] LABS: Bedside Glucose 200 mg/dL (74-106)
[2025-03-08 20:33] VITALS: BP 103/54; PULSE 93; RESP 20; TEMP 36.9; O2SAT 97
[2025-03-08] MEDS: Aspirin 81 MG TAB.CHEW PO (20:47)
[2025-03-08 21:46] LABS: Bedside Glucose 249 mg/dL (74-106)
[2025-03-09 05:18] LABS: Absolute Lymphocyte Count 1.38 X10^3/uL (0.83-4.51); Absolute Neutrophil Count 6.3 X10^3/uL (2.0-7.7); Basophil# 0.03 X10^3/uL; Basophil% 0.3 % (0-1); Eosinophils% 2.3 % (0-5); Hematocrit 23.5 % (37-47); Hemoglobin 7.6 g/dL (12.0-15.0); Lymphocyte # 1.38 X10^3/ul (0.83-4.51); Lymphocyte % 15.8 % (19-41); Mean Corp Hgb Conc 32.3 g/dL (32-36); Mean Corpuscular Volume 89.7 fL (81-99); Mean Platelet Vol. 11.7 fl (6.2-12.0); Monocyte# 0.79 X10^3/uL; NRBC Flagged by Analyzer 0 % (0-5); Neutrophil # 6.26 X10^3/uL (2.7-7.7); Neutrophil % 71.6 % (47-70); Platelet Count 164 K/mm3 (150-450); RBC Distribution Width CV 14.7 % (11.6-14.6); RBC Distribution Width SD 47.1 fl (35.1-43.9); Red Blood Count 2.62 M/mm3 (4.2-5.4); White Blood Count 8.8 K/mm3 (4.4-11.0)
[2025-03-09] MEDS: metroNIDAZOLE 500 MG/100 ML BAG 100 MG IV ×2 (05:18→14:37)
[2025-03-09 05:20] VITALS: BP 109/50; PULSE 61; RESP 16; TEMP 36.9; O2SAT 95
[2025-03-09 06:00] VITALS: BMI 26.4
[2025-03-09 06:00] LABS: Anion Gap 10 (5-15); BUN 84 mg/dL (4-19); BUN/Creat Ratio 51.7 RATIO (10-20); CPK Total, Creatine Kinase 308 U/L (24-195); Calcium,Total 8.1 mg/dL (7.6-11.0); Carbon Dioxide 19.1 mmol/L (21.0-32.0); Chloride 112 mmol/L (98-108); Creatinine, Serum 1.63 mg/dL (0.70-1.20); EST Glomerular Filtration Rate 33 (>60); Estimated Creatinine Clearance 31.75 ml/min (50-250); Glucose 120 mg/dL (70-99); Potassium 3.8 mmol/L (3.3-5.1); Sodium Level 141 mmol/L (133-145)
[2025-03-09 08:17] VITALS: BP 120/52; PULSE 64; RESP 18; TEMP 36.7; O2SAT 96
[2025-03-09] MEDS: Docusate Sodium 100 MG Capsule PO ×2 (08:25→22:39)
[2025-03-09] MEDS: amLODIPine 10 MG Tablet PO (08:25)
[2025-03-09] MEDS: Lactobacillis Acidophilus 1 CAP PO (08:25)
[2025-03-09] MEDS: Doxycycline 100 MG CAPSULE PO ×2 (08:25→22:39)
[2025-03-09 08:26] VITALS: PULSE 64
[2025-03-09] MEDS: Arthritis Pain Compound 60 CLICK TUBE TOPICAL ×2 (08:26→22:38)
[2025-03-09] MEDS: Menthol/Lanolin/Calamine/Znox 113 GM Tube 1 APPLIC TOPICAL ×2 (08:26→22:39)
[2025-03-09] MEDS: Clopidogrel Bisulfate 75 MG Tablet PO (08:26)
[2025-03-09] MEDS: Metoprolol(XL)Succ 50 MG Tablet PO (08:26)
[2025-03-09] MEDS: Pregabalin 50 MG Capsule 100 MG PO ×3 (08:29→16:28)
--- NOTE | 2025-03-09 09:00 | WOUNDNOTE ---
wound photo: right lateral heel
--- NOTE | 2025-03-09 09:02 | WOUNDNOTE ---
wound photo: right medial lower leg
--- NOTE | 2025-03-09 09:02 | WOUNDNOTE ---
wound photo: left medial ankle
--- NOTE | 2025-03-09 09:03 | WOUNDNOTE ---
wound photo: left lower leg
--- NOTE | 2025-03-09 09:04 | WOUNDNOTE ---
wound photo: left lateral foot
--- NOTE | 2025-03-09 09:04 | WOUNDNOTE ---
wound photo: left heel/posterior lower leg
[2025-03-09] MEDS: Ceftriaxone 1 GM/50 ML BAG IV (09:45)
--- NOTE | 2025-03-09 10:30 | CASEMGMT ---
GORGE LAUGHLIN Assessment Face to Face with patient for initial transition planning/care coordination assessment. RN QIAN introduced self and role at [facility], pt voices understanding. Pt is A&Ox4 and is resting comfortably in the chair and is calm. Care providers, pharmacy, and demographics verified. Admitting dx: Adult FTT, Falls, SHAYY, Rhabdo, UTI LACE Strata: 3 PCP:Rishi Vasquez Specialists: Teto (Podiatry). Current consults: Teto, Nephrology, Vascular, and wound RN. [facility] [employer] [facility] Prescription Benefit: Yes LNOK: Julianne Carl (Sister) Living Arrangements: Pt lives alone in a single story home with 2 steps to enter ADLs/IADLs: Pt states that she is normally independent. However, pt has had recent falls and is currently unable to completely care for herself. Pt states that her brother and sister are able to assist some. Pt declines having a medical alert system. Resources provided. Transportation: Self usually, sister, brother. Declines concerns DME: [employer] with sufficient supplies. Surgical shoes. FWW. Quad Cane. Raised TS. Shower chair. grab bars. HHC/SNF/Wound care: Denies history. Pt states that she has been to the [facility] in the past. Pt?s goal: Return to PLOF Plan: Anticipate SNF vs Home with HHC and f/u @ the [facility]. At this time, therapy is recommending SNF as the pt is not safe to return home alone in her current state. Pt states to this RN QIAN that she prefers to return home but is willing to attend a SNF for a short term rehabilitation stay if needed and to also help promote wound healing. See therapy notes. MS3 SW and GORGE LAUGHLIN notified. CM and GEMA to follow. Angela May RN, CM
[2025-03-09] MEDS: Insulin Lispro 100 UNIT/ML INSULN.PEN SC ×3 (11:35→22:54)
[2025-03-09] MEDS: Ascorbic Acid 500 MG Tablet 1000 MG PO (11:36)
--- NOTE | 2025-03-09 11:45 | CASEMGMT ---
Discharge Planning A list of?SNF providers including quality and resource use data and consistent with the patient's preferred geographic region, medical needs, and insurance network was created in [employer] Guide.? This list was provided to the GEMA. Aileen Rollins, Discharge Planning Asst
[2025-03-09 11:55] LABS: Bedside Glucose 164 mg/dL (74-106)
--- NOTE | 2025-03-09 12:00 | PCM.PN.HOSP ---
Reason for Visit Reason for Visit: Diagnoses Type 2 diabetes mellitus with diabetic polyneuropathy (03/07/25) Other specified peripheral vascular diseases (03/07/25) Pressure ulcer of other site, unstageable (03/07/25) Rhabdomyolysis (03/07/25) Acute kidney failure, unspecified (03/07/25) Urinary tract infection, site not specified (03/07/25) Objective Data Objective Data Vital Signs: Vital Signs Temp Pulse Resp BP Pulse Ox O2 Del Method 98.1 F 64 18 120/52 L 96 Room Air 03/09/25 08:17 03/09/25 08:26 03/09/25 08:17 03/09/25 08:17 03/09/25 08:17 03/09/25 08:17 Oxygen Delivery Method Room Air Weight: 164 lb 7.437 oz Body Mass Index (BMI) 26.4 Intake & Output: Intake and Output for Last 24 Hours 03/07/25 03/08/25 03/09/25 23:59 23:59 23:59 Intake Total 1050 / 1050 1812.5 / 1812.5 150 / 150 Output Total 250 / 800 1650 / 1650 450 / 450 Balance 800 / 250 162.5 / 162.5 -300 / -300 Lab / Micro Data 03/09/25 03:49 03/09/25 03:49 Labs: Laboratory Results - last 24 hr 03/08/25 11:29: POC Glucose 165 H 03/08/25 16:13: POC Glucose 200 H 03/08/25 20:35: POC Glucose 249 H 03/09/25 03:49: WBC 8.8, RBC 2.62 L, Hgb 7.6 L, Hct 23.5 L, MCV 89.7, MCH 29.0, MCHC 32.3, RDW Std Deviation 47.1 H, RDW Coeff of Jorgito 14.7 H, Plt Count 164, MPV 11.7, Immature Gran % (Auto) 1.000 H, Neut % (Auto) 71.6 H, Lymph % (Auto) 15.8 L, [place] % (Auto) 9.0, Eos % (Auto) 2.3, Baso % (Auto) 0.3, Absolute Neuts (auto) 6.3, Absolute Lymphs (auto) 1.38, Nucleated RBC % 0, Sodium 141, Potassium 3.8, Chloride 112 H, Carbon Dioxide 19.1 L, Anion Gap 10, BUN 84 H, Creatinine 1.63 H, Estim Creat Clear Calc 31.75 L, Est GFR (MDRD) Non-Af 33 L, BUN/Creatinine Ratio 51.7 H, Glucose 120 H, Calcium 8.1, Total Creatine Kinase 308 H, Serum Folate 15.10 03/09/25 11:34: POC Glucose 164 H Micro: Microbiology 03/07/25 15:20 Urine Catheter - Catheter Urine Culture - Final Klebsiella oxytoca 03/07/25 15:45 Stool Stool Occult Blood (ERICA) - Final Occult Blood Positive Physical Exam Narrative Seen and examined. Vascular surgeon yet to see Patient is chronically debilitated with a diabetic ulcer in lower extremities, swelling and pain. Is being followed by dropper tank storage Dr. Irene in wound center. Suspected peripheral artery disease. Patient stated that she is ambulatory on walker. Physical exam General: Alert, Oriented x3, Cooperative. BMI 26.5 kg/m? HEENT: Atraumatic, PERRLA, EOMI, Normocephalic Oral: No Gingival or Mucosal Lesions/ Ulcerations Neck: Supple, No JVD, Negative Carotid Bruits Chest wall/Lungs: Air entry diminished in bilateral lung bases. No crepitation/rhonchi Cardiovascular: Regular rate, Regular Rhythm, Normal S1, Normal S2, DP and PT pulses are faintly palpable on both lower extremities. Abdomen: Bowel Sounds Present, Soft, Non Tender, Non-Distended : No dysuria. No renal angle tenderness. No suprapubic tenderness. Extremities: No edema, Capillary Refill Less than 3 Seconds Skin: Chronic ulcer present on the left heel large, unstageable. Dry eschar to the right lateral heel unstageable. Mild bruise upper gluteal region. Multiple amputation of the toes. Musculoskeletal: Moderate muscle atrophy of extremities, intervertebral muscle. Mild malnutrition. Neurological: Cranial nerves II-XII grossly intact, DTR 2+/4. No acute focal neurological deficit. Psych/Mental Status: Flat affect Assessment & Plan Assessment/Plan (1) Chronic wound of extremity: (2) Acute UTI: (3) Rhabdomyolysis: (4) SHAYY (acute kidney injury): PLAN: Plan The patient is a 75 y/o F was brought to ED after she slipped and fell 1 week ago and was on the ground all night until family came but was not evaluated. She had near fall situation about 3 days ago, slipped out of the bed onto the floor. Denies hitting her head or LOC. On Plavix. No fever or chills. Shortness of breath. Patient has diabetes mellitus with chronic wounds/ulcers on both feet managed by Dr. Irene, finishing doxycycline prescription #1. Frequent falls, L hip pain, adult failure to thrive, debility : PT and OT. 03/09: Patient out of bed to chair with help of PT. #2. SHAYY on Chronic Kidney Disease Stage III, : Admission BUN/Cr 130/2.54, baseline renal function previously 1.3-1.7 in 2019 with creatinine 1.70 03/09: Creatinine improved to 1.63 #3. Acute rhabdomyolysis: Admission total creatinine kinase 837, repeat CK ordered 03/09: CK 308. #4. Acute Complicated Urinary Tract Infection: UA upon ED evaluation remarkable, pending UCx, continue IVFs, monitor I/Os, continue IV Rocephin w/ transition as able pending sensitivities and speciation. #5. Anemia of chronic disease: Patient has low serum iron, TIBC and low unsaturated iron therefore anemia of chronic disease. Ferritin is high. Patient admitted with H&H 8.3/25%, most recent 7.9/25% it was about 11 to 12 g back in June 2021. Severe anemia: H&H 7.6/23.5%. #6. Chronic diabetic foot wounds with left lower extremity recent fifth digit osteomyelitis complicated by underlying PAD/PVD: Recently noted pathology per Dr. Membreno 02/17/25 left foot fifth digit with evidence of osteomyelitis and periosteal supportive inflammation, most recent microbiology noted 02/26/2025 with anaerobic culture with anaerobic cocci, wound culture with MRSA sensitive to doxycycline: Continue doxycycline. Conservative management with offloading. Discussed case with Dr. Irene. 03/09: Urine culture shows Klebsiella oxytoca more than 1000 colonies. Previous wound culture was positive of MRSA. Patient on IV ceftriaxone doxycycline and Flagyl. #7. PAD/PVD: Status post peripheral angioplasty 2012: Occult blood positive. Hemoglobin about 8. Baby aspirin continued. Continue Plavix as the risk for thrombosis and critical ischemia of leg is high Recent evaluation with 01/06/2025 JEFFREY/PVR noted right JEFFREY 0.73 with moderate arterial insufficiency and left JEFFREY 0.84 with moderate arterial insufficiency with pressures revealing aortoiliac disease, on the right specifically proximal femoral disease also. #8. Diabetes mellitus type II with chronic neuropathy with history of diabetic foot wounds, recent L foot wound as noted above: Hold oral home regimen, hemoglobin A1c requested as last noted 04/08/20 with hemoglobin A1c 6.1% thus remote, ADA diet, accu checks w/ ISS, continue home gabapentin regimen. #9. Carotid disease: Continue hypertensive regimen with adjustments as noted given SHAYY/rhabdo, diabetic regimen with adjustments as noted. Will temporally hold aspirin/Plavix given positive stool guaiac with unclear baseline hemoglobin with potential acute on chronic anemia. Will temporarily hold statin therapy until rhabdo resolved. #10. Hypertension: Continue home regimen including metoprolol, amlodipine with hold parameters as needed, PRN hydralazine. Holding lisinopril and hydrochlorothiazide given SHAYY as noted and need for hydration given rhabdo as well. #11. Hyperlipidemia: Temporarily hold statin therapy until rhabdo resolved. #12. Multinodular thyroid: Previously had followed with Dr. Moscoso status post ultrasound fine-needle aspiration of to the right sided nodules on the left side 04/18/2024 with all pathology noted to be benign follicular/colloid nodules, encourage continued outpatient follow-up as previously arranged. #13. Anxiety and depression: Per current list on a regimen, encourage continued outpatient evaluation and counseling/medications as appropriate. #14. Former tobacco use: Encourage continued tobacco cessation. #15. DVT prophylaxis: SCDs, defer chemoprophylaxis given positive guaiac of unclear exact significance. #16. CODE status: Patient VICTOR MANUEL is her sister and living will is currently in place. Discussed CODE status at length including difference between FULL code, DNR-CCA and DNR-CC status. Following discussions about the differences in these status, requested Full Code status. Charges/Coding Visit Charges Inpatient E&M: 43026 Subs Hosp L2
--- NOTE | 2025-03-09 13:03 | CASEMGMT ---
Social Work- SW met with pt to discuss discharge planning. SW introduced self and role; pt agreeable to meeting. Pt reports that her preference would be to return home at discharge with [facility] or outpatient therapy. Pt reports that she does drive and recently completed phase 3 of cardiac rehab outpatient. Pt is agreeable to looking at a SNF list as an option. Pt reports that her cat of 7 years is at home being cared for by her brother. A list of SNF providers including quality and resource use data and consistent with the patient?s preferred geographic region, medical needs, and insurance network were provided from the [facility] Guide. SW requests three choices for referrals if needed. SW remains available to follow for discharge planning. BREANNA Salvador
--- NOTE | 2025-03-09 13:29 | PCM.CONS.R ---
Assessment & Plan Assessment/Plan (1) SHAYY (acute kidney injury): (2) Chronic kidney disease: PLAN: Plan This is a 75-year-old female with past medical history significant for diabetes mellitus type 2 (per patient diagnosed in 1973), PAD/PVD, carotid disease, hypertension, OA, chronic anemia, anxiety and depression, multinodular thyroid, presented to the emergency room via EMS for fall. Nephrology consulted in view of elevated creatinine. Patient has elevated creatinine since 2016. In 2017 baseline creatinine is ranging around 1.3-1.6, 07/16/2018 creatinine 1.43, 04/08/2020 creatinine 1.70. Lab work this admission on March 07 creatinine 2.54 and today her creatinine is 1.63 mg/dL. UA positive leukocyte esterase, 30 protein. Patient was started on IV fluids on admission. Lisinopril, hydrochlorothiazide and metformin has been on hold. She is receiving IV antibiotics for UTI, urine culture Klebsiella oxytoca. Nonoliguric, mildly hypovolemic SHAYY possibly from hemodynamics, lower bps, concurrent use of lisinopril and hydrochlorothiazide. With IV fluids renal function has improved. No acute indication for [employer]. Patient is possibly near baseline CKD. Will check renal ultrasound and urine protein creatinine ratio. Blood pressures were low but have improved. She is on amlodipine and Toprol with holding parameters. Labs ordered for a.m. Further orders forthcoming as hospitalization evolves, thank you for allowing us to participate in the care of Ms. Newman. HPI Consult Data Date of Consult: 03/09/25 HPI Narrative HPI Narrative: KIMBERLY NEWMAN, is a 75 F with past medical history significant for diabetes mellitus type 2 (per patient diagnosed in 1973), PAD/PVD, carotid disease, hypertension, OA, chronic anemia, anxiety and depression, multinodular thyroid who presented to the hospital via EMS on March 07 after patient had fallen at home. Patient was admitted for further evaluation of frequent falls as well as SHAYY. In the ER BUN 130, creatinine 2.54, CPK 837. Nephrology consulted in view of elevated creatinine. Patient reports she has not been seen by limited radiology technician in past. In reviewing past creatinine trends patient has elevated creatinine at least since 2016. In 2019 creatinine 1.7. Gap in lab work until his hospitalization. Creatinine on admission 2.5 and today patient's creatinine is 1.6. Patient denies any new medications. Patient states she does not take NSAIDs. Denies hematuria or dysuria. Denies rash. [facility] Medical History MRSA (methicillin resistant staph aureus) culture positive Depression Diabetes Back pain Vertigo History of pain when walking Hypertension Arthritis Wears dentures Post-menopausal Low iron High cholesterol Easy bruising Neuropathy Dietary restriction Former smoker Cardiology follow-up encounter History of torn meniscus of left knee Carotid artery stenosis Essential hypertension Skin lesion Hammer toe of left foot Osteomyelitis Chronic kidney disease, stage 3 Atherosclerosis of coronary artery of [place] heart without angina pectoris Hyperlipidemia Peripheral vascular occlusive disease Hammer toe of second toe of left foot Hallux valgus (acquired), right foot Healed ulcer of left foot on examination Chronic ulcer of left foot with fat layer exposed Delayed wound healing Malnutrition Osteomyelitis of foot 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 Methicillin resistant Staphylococcus aureus infection Chronic osteomyelitis of left foot Non-healing ulcer of right foot DM2 (diabetes mellitus, type 2) Home Medications ?Medication ?Instructions ?Recorded ?Last Taken ?Type aspirin 81 mg tablet,delayed 81 mg PO QHS 01/13/14 08/30/16 History release multivitamin with folic acid 400 1 tab PO DAILY 01/13/14 11/14/16 History mcg tablet simvastatin 40 mg tablet 40 mg PO QHS 05/31/16 08/30/16 History omega-3 fatty acids-fish oil 340 1 ea PO DAILY 06/29/16 08/27/16 History mg-1,000 mg capsule ferrous sulfate 325 mg (65 mg 325 mg PO DAILY 08/15/18 Unknown History iron) tablet ascorbic acid (vitamin C) 500 mg 1,000 mg PO LUNCH 11/25/20 Unknown History tablet calcium carbonate (Calcium 600) 600 mg PO DAILY 12/29/21 Unknown History docusate sodium 100 mg capsule 100 mg PO BID 12/29/21 Unknown History hydrochlorothiazide 25 mg tablet 25 mg PO QAM 02/07/22 Unknown History metformin 500 mg tablet 500 mg PO BID 06/29/22 Unknown History cranberry extract 500 mg capsule 500 mg PO DINNER 08/08/22 Unknown History clopidogrel 75 mg tablet 75 mg PO DAILY #90 tabs 10/23/24 Unknown Rx metoprolol succinate 50 mg 50 mg PO DAILY #90 tabs 10/23/24 Unknown Rx tablet,extended release 24 hr amlodipine 10 mg tablet 10 mg PO DAILY Please hold RX 12/25/24 Unknown Rx until pt calls #90 tabs doxycycline hyclate 100 mg capsule 100 mg PO BID 2 weeks #28 caps 02/19/25 Unknown Rx Lactobacillus acidophilus 600 mg PO QDAY 03/07/25 Unknown History (Acidophilus capsule) glimepiride 4 mg tablet 4 mg PO DAILY 03/07/25 Unknown History lisinopril 20 mg tablet 20 mg PO DAILY 03/07/25 Unknown History pregabalin 100 mg capsule 100 mg PO TID 03/07/25 Unknown History Allergy/AdvReac Type Severity Reaction Status Date / Time Sulfa (Sulfonamide Allergy Unknown Verified 03/07/25 13:44 Antibiotics) Family History Father CAD (coronary artery disease) Heart disease Hypertension CVA (cerebral vascular accident) Mother COPD (chronic obstructive pulmonary disease) Hypertension Heart disease Heart failure Surgical History History of repair of left rotator cuff History of total left knee replacement (~2014) History of angioplasty of peripheral vessel (~2012) amputation left toe History of left heart catheterization (~01/20/14) Social History household members: none Smoking Status: Former smoker how long ago did patient quit smokin years ago alcohol intake: never substance use type: does not use caffeine: No ROS ROS Narrative As in HPI Physical Exam Narrative Alert and oriented x 3, no apparent distress S1, S2, RRR Lung sounds clear anteriorly and posteriorly Abdomen soft, nontender Bilateral lower legs wrapped with [place] wrap from knees to feet. No edema bilateral thighs. Lab / Micro Data 03/09/25 03:49 03/09/25 03:49 Labs: Laboratory Results - last 24 hr 03/08/25 11:29: POC Glucose 165 H 03/08/25 16:13: POC Glucose 200 H 03/08/25 20:35: POC Glucose 249 H 03/09/25 03:49: WBC 8.8, RBC 2.62 L, Hgb 7.6 L, Hct 23.5 L, MCV 89.7, MCH 29.0, MCHC 32.3, RDW Std Deviation 47.1 H, RDW Coeff of Jorgito 14.7 H, Plt Count 164, MPV 11.7, Immature Gran % (Auto) 1.000 H, Neut % (Auto) 71.6 H, Lymph % (Auto) 15.8 L, [place] % (Auto) 9.0, Eos % (Auto) 2.3, Baso % (Auto) 0.3, Absolute Neuts (auto) 6.3, Absolute Lymphs (auto) 1.38, Nucleated RBC % 0, Sodium 141, Potassium 3.8, Chloride 112 H, Carbon Dioxide 19.1 L, Anion Gap 10, BUN 84 H, Creatinine 1.63 H, Estim Creat Clear Calc 31.75 L, Est GFR (MDRD) Non-Af 33 L, BUN/Creatinine Ratio 51.7 H, Glucose 120 H, Calcium 8.1, Total Creatine Kinase 308 H, Serum Folate 15.10 03/09/25 11:34: POC Glucose 164 H Micro: Microbiology 03/07/25 15:20 Urine Catheter - Catheter Urine Culture - Final Klebsiella oxytoca
--- NOTE | 2025-03-09 13:40 | US_ITS ---
PROCEDURE: KIDNEY AND BLADDER 03/09/2025 REASON FOR EXAM: SHAYY ON PROBABLE CKD TECHNIQUE: Bilateral renal ultrasound. COMPARISON: None FINDINGS: Kidneys: Normal renal sizes, parenchymal thicknesses, and echotextures. [place]: No hydronephrosis. Cysts or Masses: No cysts or large solid renal masses. Other: None RIGHT Kidney Size: 9.7 cm x 4.8 cm x 5.2 cm Volume: 127.12 mL Cortical Thickness (if discernible): 1.4 cm (>6mm is normal) LEFT Kidney Size: 9.8 cm x 4.8 cm x 4.9 cm Volume: 121.16 mL Cortical Thickness (if discernible): 1.7 (>6mm is normal) Urinary bladder: Unremarkable. US/Kidney and Bladder IMPRESSION: NORMAL RENAL ULTRASOUND. Reading Location: [place] [id number]
[2025-03-09 14:18] VITALS: BP 95/48; PULSE 65; RESP 18; TEMP 36.9; O2SAT 94
[2025-03-09 16:36] LABS: Bedside Glucose 193 mg/dL (74-106)
--- NOTE | 2025-03-09 17:29 | EX.PCM.CON.S ---
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 She has bilateral foot wounds that have been present to some extent for the past few months that she think have improved some and are less painful. 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 She had some form of endovascular intervention by Dr. Moscoso around that time. She is diabetic, A1c she reports in 6.5 range, does have neuropathy. [facility] Medical History MRSA (methicillin resistant staph aureus) culture positive Depression Diabetes Back pain Vertigo History of pain when walking Hypertension Arthritis Wears dentures Post-menopausal Low iron High cholesterol Easy bruising Neuropathy Dietary restriction Former smoker Cardiology follow-up encounter History of torn meniscus of left knee Carotid artery stenosis Essential hypertension Skin lesion Hammer toe of left foot Osteomyelitis Chronic kidney disease, stage 3 Atherosclerosis of coronary artery of [place] heart without angina pectoris Hyperlipidemia Peripheral vascular occlusive disease Hammer toe of second toe of left foot Hallux valgus (acquired), right foot Healed ulcer of left foot on examination Chronic ulcer of left foot with fat layer exposed Delayed wound healing Malnutrition Osteomyelitis of foot 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 Methicillin resistant Staphylococcus aureus infection Chronic osteomyelitis of left foot Non-healing ulcer of right foot DM2 (diabetes mellitus, type 2) Home Medications ?Medication ?Instructions ?Recorded ?Last Taken ?Type aspirin 81 mg tablet,delayed 81 mg PO QHS 01/13/14 08/30/16 History release multivitamin with folic acid 400 1 tab PO DAILY 01/13/14 11/14/16 History mcg tablet simvastatin 40 mg tablet 40 mg PO QHS 05/31/16 08/30/16 History omega-3 fatty acids-fish oil 340 1 ea PO DAILY 06/29/16 08/27/16 History mg-1,000 mg capsule ferrous sulfate 325 mg (65 mg 325 mg PO DAILY 08/15/18 Unknown History iron) tablet ascorbic acid (vitamin C) 500 mg 1,000 mg PO LUNCH 11/25/20 Unknown History tablet calcium carbonate (Calcium 600) 600 mg PO DAILY 12/29/21 Unknown History docusate sodium 100 mg capsule 100 mg PO BID 12/29/21 Unknown History hydrochlorothiazide 25 mg tablet 25 mg PO QAM 02/07/22 Unknown History metformin 500 mg tablet 500 mg PO BID 06/29/22 Unknown History cranberry extract 500 mg capsule 500 mg PO DINNER 08/08/22 Unknown History clopidogrel 75 mg tablet 75 mg PO DAILY #90 tabs 10/23/24 Unknown Rx metoprolol succinate 50 mg 50 mg PO DAILY #90 tabs 10/23/24 Unknown Rx tablet,extended release 24 hr amlodipine 10 mg tablet 10 mg PO DAILY Please hold RX 12/25/24 Unknown Rx until pt calls #90 tabs doxycycline hyclate 100 mg capsule 100 mg PO BID 2 weeks #28 caps 02/19/25 Unknown Rx Lactobacillus acidophilus 600 mg PO QDAY 03/07/25 Unknown History (Acidophilus capsule) glimepiride 4 mg tablet 4 mg PO DAILY 03/07/25 Unknown History lisinopril 20 mg tablet 20 mg PO DAILY 03/07/25 Unknown History pregabalin 100 mg capsule 100 mg PO TID 03/07/25 Unknown History Allergy/AdvReac Type Severity Reaction Status Date / Time Sulfa (Sulfonamide Allergy Unknown Verified 03/07/25 13:44 Antibiotics) Family History Father CAD (coronary artery disease) Heart disease Hypertension CVA (cerebral vascular accident) Mother COPD (chronic obstructive pulmonary disease) Hypertension Heart disease Heart failure Surgical History History of repair of left rotator cuff History of total left knee replacement (~2014) History of angioplasty of peripheral vessel (~2012) amputation left toe History of left heart catheterization (~01/20/14) Social History household members: none Smoking Status: Former smoker how long ago did patient quit smokin years ago alcohol intake: never substance use type: does not use caffeine: No ROS Constitutional Constitutional: Reports frequent falls; Denies chills, fever(s), lethargy or weakness Eyes Eyes: Denies blind spots, change in vision or loss of vision ENT HEENT: Denies bleeding gums, hoarseness or sore throat Cardiovascular Cardiovascular: Denies abdominal pain, bluish discoloration of hand/feet, chest pain with activity, claudication, cold extremities, cyanosis, dyspnea on exertion, erythema on extremities, irregular heart rhythm, leg edema, leg ulcers, numbness in extremities or weakness in extremities Respiratory/Chest Respiratory/Chest: Denies cough, excessive phlegm production, shortness of breath at rest, shortness of breath with exertion or wheezing Gastrointestinal Gastrointestinal: Denies anorexia, change in stool character, constipation, diarrhea, melena or rectal bleeding Genitourinary Genitourinary: Denies dysuria or hematuria Musculoskeletal Musculoskeletal: Denies abnormal gait Integumentary Integumentary: Reports wounds; Denies erythema Neurologic Neurologic: Denies abnormal speech, focal weakness, headache(s), loss of vision, numbness, paresthesias or sensory deficit Hematologic/Lymphatic Hematologic/Lymphatic: Denies easy bleeding, easy bruising or lymphadenopathy Physical Exam Const alert, oriented x3, no apparent distress and healthy appearing General Appearance: cooperative; Negative for combative or lethargic Orientation / Consciousness: awake Exam Limitations: no limitations HEENT Head and Scalp: normocephalic and atraumatic Eyes EOMs intact bilaterally General Eye: normal appearance of both eyes Neck full ROM General: trachea midline Resp normal respiratory effort and no use of accessory muscles Effort and Inspection: Negative for labored, stridor or audible wheezes Cardio regular rate and regular rhythm Back/Spine Cervical Spine: cervical ROM normal Skin no rashes or lesions noted Neuro oriented x3, CN's II-XII intact bilaterally, no focal motor deficits and no sensory deficits noted Psych thought process normal, cooperative, affect normal, speech normal and activity/motor behavior normal Lab / Micro Data 03/09/25 03:49 03/09/25 03:49 Labs: Laboratory Results - last 24 hr 03/08/25 20:35: POC Glucose 249 H 03/09/25 03:49: WBC 8.8, RBC 2.62 L, Hgb 7.6 L, Hct 23.5 L, MCV 89.7, MCH 29.0, MCHC 32.3, RDW Std Deviation 47.1 H, RDW Coeff of Jorgito 14.7 H, Plt Count 164, MPV 11.7, Immature Gran % (Auto) 1.000 H, Neut % (Auto) 71.6 H, Lymph % (Auto) 15.8 L, [place] % (Auto) 9.0, Eos % (Auto) 2.3, Baso % (Auto) 0.3, Absolute Neuts (auto) 6.3, Absolute Lymphs (auto) 1.38, Nucleated RBC % 0, Sodium 141, Potassium 3.8, Chloride 112 H, Carbon Dioxide 19.1 L, Anion Gap 10, BUN 84 H, Creatinine 1.63 H, Estim Creat Clear Calc 31.75 L, Est GFR (MDRD) Non-Af 33 L, BUN/Creatinine Ratio 51.7 H, Glucose 120 H, Calcium 8.1, Total Creatine Kinase 308 H, Serum Folate 15.10 03/09/25 11:34: POC Glucose 164 H 03/09/25 16:18: POC Glucose 193 H Micro: Microbiology 03/07/25 15:20 Urine Catheter - Catheter Urine Culture - Final Klebsiella oxytoca Imaging Radiology Impression Renal Ultrasound 03/09/25 13:40 IMPRESSION: NORMAL RENAL ULTRASOUND. Reading Location: [facility] Charges/Coding Visit Charges Inpatient E&M: 26909 Init Hosp L2
[2025-03-09] MEDS: 0.9% Saline Lock 10 ML Syringe IV (22:37)
[2025-03-09] MEDS: Aspirin 81 MG TAB.CHEW PO (22:39)
[2025-03-09 22:46] VITALS: BP 128/60; PULSE 62; RESP 18; TEMP 36.7; O2SAT 97
[2025-03-09] MEDS: metroNIDAZOLE 500 MG/100 ML BAG IV (23:00)
[2025-03-09] MEDS: Acetaminophen 325 MG Tablet 650 MG PO (23:08)
[2025-03-09 23:50] LABS: Bedside Glucose 220 mg/dL (74-106)
[2025-03-10] VITALS (8 sets, daily range): BP systolic 109–134; BP diastolic 40–56; PULSE 54–70; RESP 16–20; TEMP 36.4–37; O2SAT 95–100; BMI 26.4
[2025-03-10 01:45] LABS: Protein, Urine (Random) 8.5 mg/dL (0.0-12.0); Protein:Creat Ratio 226 mg/g CRE (0-200)
[2025-03-10] MEDS: metroNIDAZOLE 500 MG/100 ML BAG 100 MG IV ×3 (06:28→20:59)
[2025-03-10 07:00] LABS: Absolute Lymphocyte Count 1.76 X10^3/uL (0.83-4.51); Absolute Neutrophil Count 4.7 X10^3/uL (2.0-7.7); Basophil# 0.05 X10^3/uL; Basophil% 0.6 % (0-1); Eosinophil# 0.24 X10^3/uL; Hematocrit 25.3 % (37-47); Hemoglobin 8.1 g/dL (12.0-15.0); Lymphocyte # 1.76 X10^3/ul (0.83-4.51); Lymphocyte % 22.3 % (19-41); Mean Corpuscular Hgb 28.7 pg (27.0-32.0); Mean Corpuscular Volume 89.7 fL (81-99); Mean Platelet Vol. 11.4 fl (6.2-12.0); Monocyte# 1.02 X10^3/uL; Monocyte% 12.9 % (0-10); NRBC Flagged by Analyzer 0 % (0-5); Neutrophil # 4.72 X10^3/uL (2.7-7.7); Neutrophil % 59.9 % (47-70); Platelet Count 156 K/mm3 (150-450); RBC Distribution Width CV 15.1 % (11.6-14.6); RBC Distribution Width SD 46.9 fl (35.1-43.9); Red Blood Count 2.82 M/mm3 (4.2-5.4); White Blood Count 7.9 K/mm3 (4.4-11.0)
[2025-03-10 07:38] LABS: Bedside Glucose 84 mg/dL (74-106)
[2025-03-10 07:54] LABS: Anion Gap 10 (5-15); BUN 65 mg/dL (4-19); BUN/Creat Ratio 44.3 RATIO (10-20); Calcium,Total 8.4 mg/dL (7.6-11.0); Carbon Dioxide 19.1 mmol/L (21.0-32.0); Chloride 113 mmol/L (98-108); Creatinine, Serum 1.47 mg/dL (0.70-1.20); EST Glomerular Filtration Rate 37 (>60); Estimated Creatinine Clearance 35.18 ml/min (50-250); Glucose 81 mg/dL (70-99); Potassium 4.2 mmol/L (3.3-5.1); Sodium Level 143 mmol/L (133-145)
--- NOTE | 2025-03-10 08:56 | PCM.PN.SRG ---
Subjective Subjective She reports she is feeling okay today. She has no particular complaints. She is considering discharge to SNF for some additional therapy. Her kidney function is improved to her baseline today. Objective Data Objective Data Vital Signs: Vital Signs Temp Pulse Resp BP Pulse Ox O2 Del Method 98.6 F 58 L 16 118/40 L 100 Room Air 03/10/25 08:15 03/10/25 08:21 03/10/25 08:21 03/10/25 08:15 03/10/25 08:15 03/10/25 08:15 Oxygen Delivery Method Room Air Weight: 164 lb 3.91 oz Body Mass Index (BMI) 26.4 Intake & Output: Intake and Output for Last 24 Hours 03/08/25 03/09/25 03/10/25 23:59 23:59 23:59 Intake Total 1812.5 / 1812.5 350 / 350 Output Total 1650 / 1650 1000 / 1000 175 / 175 Balance 162.5 / 162.5 -650 / -650 -175 / -175 Lab / Micro Data 03/10/25 06:48 03/10/25 06:48 Labs: Laboratory Results - last 24 hr 03/09/25 11:34: POC Glucose 164 H 03/09/25 16:18: POC Glucose 193 H 03/09/25 21:36: U Random Total Protein 8.5, Urine Creatinine 37.70, Protein/Creatinin Ratio 226 H 03/09/25 22:53: POC Glucose 220 H 03/10/25 06:25: POC Glucose 84 03/10/25 06:48: WBC 7.9, RBC 2.82 L, Hgb 8.1 L, Hct 25.3 L, MCV 89.7, MCH 28.7, MCHC 32.0, RDW Std Deviation 46.9 H, RDW Coeff of Jorgito 15.1 H, Plt Count 156, MPV 11.4, Immature Gran % (Auto) 1.300 H, Neut % (Auto) 59.9, Lymph % (Auto) 22.3, [place] % (Auto) 12.9 H, Eos % (Auto) 3.0, Baso % (Auto) 0.6, Absolute Neuts (auto) 4.7, Absolute Lymphs (auto) 1.76, Nucleated RBC % 0, Sodium 143, Potassium 4.2, Chloride 113 H, Carbon Dioxide 19.1 L, Anion Gap 10, BUN 65 H, Creatinine 1.47 H, Estim Creat Clear Calc 35.18 L, Est GFR (MDRD) Non-Af 37 L, BUN/Creatinine Ratio 44.3 H, Glucose 81, Calcium 8.4 Micro: Microbiology 03/07/25 15:20 Urine Catheter - Catheter Urine Culture - Final Klebsiella oxytoca 03/07/25 15:45 Stool Stool Occult Blood (ERICA) - Final Occult Blood Positive Radiography Diagnostic Testing: Radiology Impression Renal Ultrasound 03/09/25 13:40 IMPRESSION: NORMAL RENAL ULTRASOUND. Reading Location: [facility] Physical Exam Const alert, oriented x3, no apparent distress and healthy appearing General Appearance: cooperative; Negative for combative or lethargic Orientation / Consciousness: awake Exam Limitations: no limitations HEENT Head and Scalp: normocephalic and atraumatic Eyes EOMs intact bilaterally General Eye: normal appearance of both eyes Neck full ROM General: trachea midline Resp normal respiratory effort and no use of accessory muscles Effort and Inspection: Negative for labored, stridor or audible wheezes Cardio regular rate and regular rhythm Skin Wound Narrative: wound dressings C/D/I; reviewed pictures in chart Neuro oriented x3, CN's II-XII intact bilaterally, no focal motor deficits and no sensory deficits noted Psych thought process normal, cooperative, affect normal, speech normal and activity/motor behavior normal Assessment & Plan Assessment/Plan (1) 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 If she is still admitted pending precert for SNF later this week and kidney function remains stable could consider CTA inpatient Thurs/Fri; otherwise, will coordinate outpatient imaging and office follow-up in the next few weeks. Charges/Coding Visit Charges Inpatient E&M: 89176 Subs Hosp L1
--- NOTE | 2025-03-10 09:08 | PCM.PROGNOTE ---
Subjective Subjective Ms. Fuller is a 75-year-old diabetic female seen at bedside today for evaluation of full-thickness wound to the left heel and right heel. Patient has left her dressing clean dry and intact. She is getting dressing changes daily by wound care nurse. Admits to offloading with pillows and blankets. She is doing well and denies any acute events overnight. She denies any constitutional symptoms. No other pedal complaints at this time. Objective Data Objective Data Vital Signs: Vital Signs Temp Pulse Resp BP Pulse Ox O2 Del Method 98.6 F 58 L 16 118/40 L 100 Room Air 03/10/25 08:15 03/10/25 08:21 03/10/25 08:21 03/10/25 08:15 03/10/25 08:15 03/10/25 08:15 Oxygen Delivery Method Room Air Weight: 74.5 kg Body Mass Index (BMI) 26.4 Intake & Output: Intake and Output for Last 24 Hours 03/08/25 03/09/25 03/10/25 23:59 23:59 23:59 Intake Total 1812.5 / 1812.5 350 / 350 Output Total 1650 / 1650 1000 / 1000 175 / 175 Balance 162.5 / 162.5 -650 / -650 -175 / -175 Lab / Micro Data 03/10/25 06:48 03/10/25 06:48 Labs: Laboratory Results - last 24 hr 03/09/25 11:34: POC Glucose 164 H 03/09/25 16:18: POC Glucose 193 H 03/09/25 21:36: U Random Total Protein 8.5, Urine Creatinine 37.70, Protein/Creatinin Ratio 226 H 03/09/25 22:53: POC Glucose 220 H 03/10/25 06:25: POC Glucose 84 03/10/25 06:48: WBC 7.9, RBC 2.82 L, Hgb 8.1 L, Hct 25.3 L, MCV 89.7, MCH 28.7, MCHC 32.0, RDW Std Deviation 46.9 H, RDW Coeff of Jorgito 15.1 H, Plt Count 156, MPV 11.4, Immature Gran % (Auto) 1.300 H, Neut % (Auto) 59.9, Lymph % (Auto) 22.3, [place] % (Auto) 12.9 H, Eos % (Auto) 3.0, Baso % (Auto) 0.6, Absolute Neuts (auto) 4.7, Absolute Lymphs (auto) 1.76, Nucleated RBC % 0, Sodium 143, Potassium 4.2, Chloride 113 H, Carbon Dioxide 19.1 L, Anion Gap 10, BUN 65 H, Creatinine 1.47 H, Estim Creat Clear Calc 35.18 L, Est GFR (MDRD) Non-Af 37 L, BUN/Creatinine Ratio 44.3 H, Glucose 81, Calcium 8.4 Micro: Microbiology 03/07/25 15:20 Urine Catheter - Catheter Urine Culture - Final Klebsiella oxytoca 03/07/25 15:45 Stool Stool Occult Blood (ERICA) - Final Occult Blood Positive Radiography Diagnostic Testing: Radiology Impression Renal Ultrasound 03/09/25 13:40 IMPRESSION: NORMAL RENAL ULTRASOUND. Reading Location: [place] [id number] Physical Exam Narrative Vascular: Capillary refill time is brisk to the bilateral digits. Nonpitting edema appreciated to the distal and proximal dressing bilateral. Neurological: Light touch is intact. Dermatological: Bilateral dressings appear applied to the bilateral extremity. No evidence of strikethrough is appreciated. Musculoskeletal: Mild pain to palpation to the left heel over dressing. No pain with calf pressure. Const alert, oriented x3 and no apparent distress Assessment & Plan Assessment/Plan (1) Unstageable pressure injury of left lower leg: PLAN: Patient was examined and evaluated. All findings were discussed with the patient. All questions were answered to the patient satisfaction. During evaluation today at bedside the patient is doing well. She does not have any complaints or constitutional symptoms at this time. Will continue to have dressing changes with Betadine soaked gauze to all eschars to the by the lower extremity followed by dry sterile dressing and light compression wrap. Stool: Occult blood positive Urine catheter: K oxytoca Left foot culture (02/26/2025): MRSA, anaerobic cocci WBC: 7.9 Glu: 308 HbA1c: 6.5 Medicine: On board, medical management, Abx: Doxycycline, Rocephin, Flagyl Vascular surgery: patient would benefit from CTA to assess aorto-iliac, proximal femoral disease burden, given SHAYY on admission will trend Cr for a few days before contrast exposure; if needed can complete outpatient. Nephro: On board PT/OT: On board No plan for surgical intervention at this time. Will have to wait until patient is cleared by vascular surgery either as an inpatient or outpatient. Due to the patient's living condition, still [facility] to [facility] the patient secondary to falls and living alone. Podiatry will continue to follow but from as a distance with assistance of wound care nurse for dressing changes. Please reach out to Dr. Irene with any questions or concerns. Discharge orders are in. Thank you for letting me be involved in the patient care. (2) Unstageable pressure injury of right lower leg: (3) Chronic painful diabetic polyneuropathy: (4) Other specified peripheral vascular diseases:
[2025-03-10] MEDS: Pregabalin 50 MG Capsule 100 MG PO ×3 (10:33→17:16)
[2025-03-10] MEDS: Lactobacillis Acidophilus 1 CAP PO (10:34)
[2025-03-10] MEDS: Arthritis Pain Compound 60 CLICK TUBE TOPICAL ×2 (10:34→20:58)
[2025-03-10] MEDS: Docusate Sodium 100 MG Capsule PO ×2 (10:35→20:58)
[2025-03-10] MEDS: Doxycycline 100 MG CAPSULE PO ×2 (10:35→23:47)
[2025-03-10] MEDS: Menthol/Lanolin/Calamine/Znox 113 GM Tube 1 APPLIC TOPICAL ×2 (10:35→20:58)
[2025-03-10] MEDS: Clopidogrel Bisulfate 75 MG Tablet PO (10:36)
[2025-03-10] MEDS: Metoprolol(XL)Succ 50 MG Tablet PO (10:36)
[2025-03-10] MEDS: Ceftriaxone 1 GM/50 ML BAG IV (10:46)
[2025-03-10] MEDS: Insulin Lispro 100 UNIT/ML INSULN.PEN SC ×2 (11:08→17:15)
[2025-03-10 11:20] LABS: Bedside Glucose 308 mg/dL (74-106)
--- NOTE | 2025-03-10 11:43 | CASEMGMT ---
Addendum entered by Daniela Mak 03/10/25 14:25: GORGE LAUGHLIN into pt room, pt asks if [facility] is in network with her insurance. Confirmed with dc corporate law assistant that they are. Offered this as an additional choice for pt. Pt in room with sister present. Pt states she has chosen 1. [facility] and 2. [facility]. Updated SW. Addendum entered by Daniela Mak 03/10/25 12:55: Provided pt with a [employer] list created by dc corporate law assistant. Pt then became tearful and asked if she could also have a list of s/t SNF's. Pt states she will consider this. Provided this list to her as well. GORGE LAUGHLIN to check back. Pt is going decide which she prefers. Original Note: GORGE LAUGHLIN into pt room to speak with pt regarding dc planning. Pt states she has not had therapy yet today but she feels it went well yesterday. Pt states she has a cat that she is worried sick about. She states her sign letterer and her brother want her to go to a facility but she wants to return home. Discussed HHC with patient, she is agreeable to this. Discussed having SN, PT and OT. Discussed expectations of HHC with pt. Pt aware GORGE LAUGHLIN will come back with a HH list. Pt denies further needs at this time.
--- NOTE | 2025-03-10 11:52 | CASEMGMT ---
Discharge Planning A list of?HH providers including quality and resource use data and consistent with the patient's preferred geographic region, medical needs, and insurance network was created in [employer] Guide.? This list was provided to the RN QIAN. Aileen Rollins, Discharge Planning Asst.
--- NOTE | 2025-03-10 11:57 | PCM.PN.REN ---
Subjective Subjective no new complaints breathing is ok both lower extremities wrapped Objective Data Objective Data Vital Signs: Vital Signs Temp Pulse Resp BP Pulse Ox O2 Del Method 98.6 F 58 L 16 118/40 L 100 Room Air 03/10/25 08:15 03/10/25 10:36 03/10/25 08:21 03/10/25 10:36 03/10/25 08:15 03/10/25 08:15 Oxygen Delivery Method Room Air Weight: 74.5 kg Body Mass Index (BMI) 26.4 Intake & Output: Intake and Output for Last 24 Hours 03/08/25 03/09/25 03/10/25 23:59 23:59 23:59 Intake Total 1812.5 / 1812.5 350 / 350 100 / 100 Output Total 1650 / 1650 1000 / 1000 175 / 175 Balance 162.5 / 162.5 -650 / -650 -75 / -75 Lab / Micro Data 03/10/25 06:48 03/10/25 06:48 Labs: Laboratory Results - last 24 hr 03/09/25 16:18: POC Glucose 193 H 03/09/25 21:36: U Random Total Protein 8.5, Urine Creatinine 37.70, Protein/Creatinin Ratio 226 H 03/09/25 22:53: POC Glucose 220 H 03/10/25 06:25: POC Glucose 84 03/10/25 06:48: WBC 7.9, RBC 2.82 L, Hgb 8.1 L, Hct 25.3 L, MCV 89.7, MCH 28.7, MCHC 32.0, RDW Std Deviation 46.9 H, RDW Coeff of Jorgito 15.1 H, Plt Count 156, MPV 11.4, Immature Gran % (Auto) 1.300 H, Neut % (Auto) 59.9, Lymph % (Auto) 22.3, [place] % (Auto) 12.9 H, Eos % (Auto) 3.0, Baso % (Auto) 0.6, Absolute Neuts (auto) 4.7, Absolute Lymphs (auto) 1.76, Nucleated RBC % 0, Sodium 143, Potassium 4.2, Chloride 113 H, Carbon Dioxide 19.1 L, Anion Gap 10, BUN 65 H, Creatinine 1.47 H, Estim Creat Clear Calc 35.18 L, Est GFR (MDRD) Non-Af 37 L, BUN/Creatinine Ratio 44.3 H, Glucose 81, Calcium 8.4 03/10/25 11:02: POC Glucose 308 H Micro: Microbiology 03/07/25 15:20 Urine Catheter - Catheter Urine Culture - Final Klebsiella oxytoca 03/07/25 15:45 Stool Stool Occult Blood (ERICA) - Final Occult Blood Positive Radiography Diagnostic Testing: Radiology Impression Renal Ultrasound 03/09/25 13:40 IMPRESSION: NORMAL RENAL ULTRASOUND. [facility] Physical Exam Narrative Alert and oriented x 3, no apparent distress S1, S2, RRR Lung sounds clear anteriorly and posteriorly Abdomen soft, nontender Bilateral lower legs wrapped with [place] wrap from knees to feet. No edema bilateral thighs. Assessment & Plan Assessment/Plan (1) SHAYY (acute kidney injury): (2) Chronic kidney disease: PLAN: Plan This is a 75-year-old female with past medical history significant for diabetes mellitus type 2 (per patient diagnosed in 1973), PAD/PVD, carotid disease, hypertension, OA, chronic anemia, anxiety and depression, multinodular thyroid, presented to the emergency room via EMS for fall. Nephrology consulted in view of elevated creatinine. In 2017 baseline creatinine is ranging around 1.3-1.6, 07/16/2018 creatinine 1.43, 04/08/2020 creatinine 1.70. Lab work this admission on March 07 creatinine 2.54 Cr is closer to baseline LE edema. on thiazide at home. currently on hold Rhabdomyolysis. mild. CK levels better
--- NOTE | 2025-03-10 12:02 | NURSING ---
read student nurse assessment neuro not met d/t neuropathy in feet, cardio not met d/t weak pedal pulses and 1+ pedal edema
[2025-03-10] MEDS: Ascorbic Acid 500 MG Tablet 1000 MG PO (13:25)
--- NOTE | 2025-03-10 15:00 | CASEMGMT ---
Social Work Collaboration with RN CM on discharge planning. Patient is now agreeable with short term SNF. First choice is [facility] and second choice is [facility]. Referral to [facility] in [facility]. [facility] reports will know 03.11.25 about decision regarding referral. No beds available on TCU until at the earliest. Plan: Pending SNF referrals. -HARSHA Christensen
--- NOTE | 2025-03-10 15:35 | PN.HOSP_ITS ---
Reason for Visit Reason for Visit: Diagnoses Type 2 diabetes mellitus with diabetic polyneuropathy (03/07/25) Atherosclerosis of [place] arteries of extremities with gangrene, bilateral legs (03/07/25) Other specified peripheral vascular diseases (03/07/25) Pressure ulcer of other site, unstageable (03/07/25) Rhabdomyolysis (03/07/25) Acute kidney failure, unspecified (03/07/25) Chronic kidney disease, unspecified (03/07/25) Urinary tract infection, site not specified (03/07/25) Objective Data Objective Data Vital Signs: Vital Signs Temp Pulse Resp BP Pulse Ox O2 Del Method 97.6 F L 60 16 110/47 L 100 Room Air 03/10/25 12:20 03/10/25 12:20 03/10/25 12:20 03/10/25 12:20 03/10/25 12:20 03/10/25 12:20 Oxygen Delivery Method Room Air Weight: 164 lb 3.91 oz Body Mass Index (BMI) 26.4 Intake & Output: Intake and Output for Last 24 Hours 03/08/25 03/09/25 03/10/25 23:59 23:59 23:59 Intake Total 1812.5 / 1812.5 350 / 350 100 / 100 Output Total 1650 / 1650 1000 / 1000 175 / 175 Balance 162.5 / 162.5 -650 / -650 -75 / -75 Lab / Micro Data 03/10/25 06:48 03/10/25 06:48 Labs: Laboratory Results - last 24 hr 03/09/25 16:18: POC Glucose 193 H 03/09/25 21:36: U Random Total Protein 8.5, Urine Creatinine 37.70, P rotein/Creatinin Ratio 226 H 03/09/25 22:53: POC Glucose 220 H 03/10/25 06:25: POC Glucose 84 03/10/25 06:48: WBC 7.9, RBC 2.82 L, Hgb 8.1 L, Hct 25.3 L, MCV 89.7, MCH 28.7, MCHC 32.0, RDW Std Deviation 46.9 H, RDW Coeff of Jorgito 15.1 H, Plt Count 156, MPV 11.4, Immature Gran % (Auto) 1.300 H, Neut % (Auto) 59.9, Lymph % (Auto) 22.3, M manda % (Auto) 12.9 H, Eos % (Auto) 3.0, Baso % (Auto) 0.6, Absolute Neuts (auto) 4.7, Absolute Lymphs (auto) 1.76, Nucleated RBC % 0, Sodium 143, Potassium 4.2, Chloride 113 H, Carbon Dioxide 19.1 L, Anion Gap 10, BUN 65 H, Creatinine 1.47 H , Estim Creat Clear Calc 35.18 L, Est GFR (MDRD) Non-Af 37 L, BUN/Creatinine Ratio 44.3 H, Glucose 81, Calcium 8.4 03/10/25 11:02: POC Glucose 308 H Micro: Microbiology 03/07/25 15:20 Urine Catheter - Catheter Urine Culture - Final Klebsiella oxytoca 03/07/25 15:45 Stool Stool Occult Blood (ERICA) - Final Occult Blood Positive Physical Exam Narrative Seen and examined. Was seen by vascular surgery yesterday in follow-up today. Patient is chronically debilitated with a diabetic ulcer in lower extremities, swelling and pain. Is being followed by blanket winder helper Dr. Irene in wound center. Suspected peripheral artery disease. Patient stated that she is ambulatory on walker. Physical exam General: Alert, Oriented x3, Cooperative. BMI 26.5 kg/m? HEENT: Atraumatic, PERRLA, EOMI, Normocephalic Oral: No Gingival or Mucosal Lesions/ Ulcerations Neck: Supple, No JVD, Negative Carotid Bruits Chest wall/Lungs: Air entry diminished in bilateral lung bases. No crepitation/rhonchi Cardiovascular: Sinus rhythm normal S1, Normal S2, DP and PT pulses are faintly palpable on both lower extremities. Abdomen: Bowel Sounds Present, Soft, Non Tender, Non-Distended : No dysuria. No renal angle tenderness. No suprapubic tenderness. Extremities: No edema, Capillary Refill Less than 3 Seconds Skin: Chronic ulcer present on the left heel large, unstageable. Dry eschar to the right lateral heel unstageable. Mild bruise upper gluteal region improved. Multiple amputation of the toes. Musculoskeletal: Moderate muscle atrophy of extremities, intervertebral muscle. Mild malnutrition. Neurological: Cranial nerves II-XII grossly intact, DTR 2+/4. No acute focal neurological deficit. Psych/Mental Status: Flat affect Assessment & Plan Assessment/Plan (1) Chronic wound of extremity: (2) Acute UTI: (3) Rhabdomyolysis: (4) SHAYY (acute kidney injury): PLAN: Plan The patient is a 75 y/o F was brought to ED after she slipped and fell 1 week ago and was on the ground all night until family came but was not evaluated. She had near fall situation about 3 days ago, slipped out of the bed onto the floor. Denies hitting her head or LOC. On Plavix. No fever or chills. Shortness of breath. Patient has diabetes mellitus with chronic wounds/ulcers on both feet managed by Dr. Irene, finishing doxycycline prescription #1. Frequent falls, L hip pain, adult failure to thrive, debility : PT and OT. 03/09: Patient out of bed to chair with help of PT. #2. SHAYY on Chronic Kidney Disease Stage III, : Admission BUN/Cr 130/2.54, baseline renal function previously 1.3-1.7 in 2019 with creatinine 1.70 03/09: Creatinine improved to 1.63 03/10: BUN/creatinine 65/1.47. Her creatinine is on baseline. SHAYY resolved. CK level better. #3. Acute rhabdomyolysis: Admission total creatinine kinase 837, repeat CK ordered 03/09: CK 308. #4. Acute Complicated Urinary Tract Infection: UA shows more than 100 WBCs cells, LE 500, positive nitrite. 03/10: Urine culture shows Klebsiella oxytoca more than thousand colonies. Sensitive to IV ceftriaxone. #5. Anemia of chronic disease: Patient has low serum iron, TIBC and low unsaturated iron therefore anemia of chronic disease. Ferritin is high. Patient admitted with H&H 8.3/25%, most recent 7.9/25% it was about 11 to 12 g back in June 2021. Severe anemia: H&H 7.6/23.5%. #6. Chronic diabetic foot wounds with left lower extremity recent fifth digit osteomyelitis complicated by underlying PAD/PVD: Recently noted pathology per Dr. Membreno 02/17/25 left foot fifth digit with evidence of osteomyelitis and periosteal supportive inflammation, most recent microbiology noted 02/26/2025 with anaerobic culture with anaerobic cocci, wound culture with MRSA sensitive to doxycycline: Continue doxycycline. Conservative management with offloading. Discussed case with Dr. Irene. 03/09: Urine culture shows Klebsiella oxytoca more than 100,000 colonies. Previous wound culture was positive of MRSA. Patient on IV ceftriaxone doxycycline and Flagyl. 03/10: Wound culture from 02/26 shows MRSA and anaerobic cocci. Currently patient on IV ceftriaxone doxycycline and Flagyl. ID consulted for further opinion. #7. PAD/PVD: Status post peripheral angioplasty 2012: Occult blood positive. Hemoglobin about 8. Baby aspirin continued. Continue Plavix as the risk for thrombosis and critical ischemia of leg is high Recent evaluation with 01/06/2025 JEFFREY/PVR noted right JEFFREY 0.73 with moderate arterial insufficiency and left JEFFREY 0.84 with moderate arterial insufficiency with pressures revealing aortoiliac disease, on the right specifically proximal femoral disease also. 03/10: Vascular surgery note reviewed. Noninvasive vascular study shows moderate disease bilateral. Currently patient recovering from SHAYY therefore CTA would not be a good option but may be done as an outpatient. After the CT angiogram, patient might need angiogram and other necessary intervention depending upon CTA. #8. Diabetes mellitus type II with chronic neuropathy with history of diabetic foot wounds, recent L foot wound as noted above: Hold oral home regimen, hemoglobin A1c requested as last noted 04/08/20 with hemoglobin A1c 6.1% thus remote, ADA diet, accu checks w/ ISS, continue home gabapentin regimen. #9. Carotid disease: Continue hypertensive regimen with adjustments as noted given SHAYY/rhabdo, diabetic regimen with adjustments as noted. Will temporally hold aspirin/Plavix given positive stool guaiac with unclear baseline hemoglobin with potential acute on chronic anemia. Will temporarily hold statin therapy until rhabdo resolved. #10. Hypertension: Continue home regimen including metoprolol, amlodipine with hold parameters as needed, PRN hydralazine. Holding lisinopril and hydrochlorothiazide given SHAYY as noted and need for hydration given rhabdo as well. #11. Hyperlipidemia: Temporarily hold statin therapy until rhabdo resolved. #12. Multinodular thyroid: Previously had followed with Dr. Moscoso status post ultrasound fine-needle aspiration of to the right sided nodules on the left side 04/18/2024 with all pathology noted to be benign follicular/colloid nodules, encourage continued outpatient follow-up as previously arranged. #13. Anxiety and depression: Per current list on a regimen, encourage continued outpatient evaluation and counseling/medications as appropriate. #14. Former tobacco use: Encourage continued tobacco cessation. #15. DVT prophylaxis: SCDs, defer chemoprophylaxis given positive guaiac of unclear exact significance. #16. CODE status: Patient HCPOA is her sister and living will is currently in place. Discussed CODE status at length including difference between FULL code, DNR-CCA and DNR-CC status. Following discussions about the differences in these status, requested Full Code status. Charges/Coding Visit Charges Inpatient E&M: 38361 Subs Hosp L2
[2025-03-10 16:30] LABS: Bedside Glucose 278 mg/dL (74-106)
[2025-03-10] MEDS: Acetaminophen 325 MG Tablet 650 MG PO (20:57)
[2025-03-10] MEDS: Aspirin 81 MG TAB.CHEW PO (20:58)
[2025-03-10] MEDS: 0.9% Saline Lock 10 ML Syringe IV (20:58)
[2025-03-10 23:18] LABS: Bedside Glucose 186 mg/dL (74-106)
[2025-03-11 00:19] LABS: Bedside Glucose 142 mg/dL (74-106)
[2025-03-11 05:37] VITALS: BMI 26.6
[2025-03-11] MEDS: metroNIDAZOLE 500 MG/100 ML BAG 100 MG IV ×2 (05:39→15:30)
[2025-03-11] MEDS: 0.9% Normal Saline (100mL Bag) 100 ML 15 ML IV (05:46)
[2025-03-11 06:19] VITALS: BP 121/46; PULSE 57; RESP 16; TEMP 36.5; O2SAT 94
[2025-03-11 07:01] LABS: Bedside Glucose 82 mg/dL (74-106)
[2025-03-11 07:35] LABS: Absolute Lymphocyte Count 1.37 X10^3/uL (0.83-4.51); Absolute Neutrophil Count 5.4 X10^3/uL (2.0-7.7); Basophil# 0.06 X10^3/uL; Basophil% 0.7 % (0-1); Eosinophil# 0.29 X10^3/uL; Eosinophils% 3.6 % (0-5); Hematocrit 25.3 % (37-47); Lymphocyte # 1.37 X10^3/ul (0.83-4.51); Mean Corp Hgb Conc 31.6 g/dL (32-36); Mean Corpuscular Hgb 28.8 pg (27.0-32.0); Mean Platelet Vol. 11.7 fl (6.2-12.0); Monocyte# 0.87 X10^3/uL; Monocyte% 10.8 % (0-10); NRBC Flagged by Analyzer 0 % (0-5); Platelet Count 150 K/mm3 (150-450); RBC Distribution Width CV 15.4 % (11.6-14.6); RBC Distribution Width SD 49.5 fl (35.1-43.9); Red Blood Count 2.78 M/mm3 (4.2-5.4); White Blood Count 8.1 K/mm3 (4.4-11.0)
[2025-03-11 07:57] LABS: Anion Gap 10 (5-15); BUN 53 mg/dL (4-19); BUN/Creat Ratio 37.8 RATIO (10-20); Calcium,Total 8.4 mg/dL (7.6-11.0); Carbon Dioxide 19.8 mmol/L (21.0-32.0); Chloride 111 mmol/L (98-108); Creatinine, Serum 1.41 mg/dL (0.70-1.20); EST Glomerular Filtration Rate 39 (>60); Estimated Creatinine Clearance 36.83 ml/min (50-250); Glucose 91 mg/dL (70-99); Potassium 4.2 mmol/L (3.3-5.1); Sodium Level 141 mmol/L (133-145)
[2025-03-11 08:22] VITALS: BP 115/39; PULSE 60; RESP 16; TEMP 36.7; O2SAT 94
[2025-03-11 08:49] VITALS: BP 108/46
[2025-03-11 08:57] VITALS: PULSE 60
[2025-03-11] MEDS: Doxycycline 100 MG CAPSULE PO (08:57)
[2025-03-11] MEDS: Metoprolol(XL)Succ 50 MG Tablet PO (08:57)
[2025-03-11] MEDS: Pregabalin 50 MG Capsule 100 MG PO ×3 (08:57→16:46)
[2025-03-11] MEDS: Acetaminophen 325 MG Tablet 650 MG PO (08:58)
[2025-03-11] MEDS: Clopidogrel Bisulfate 75 MG Tablet PO (08:58)
[2025-03-11] MEDS: Ceftriaxone 1 GM/50 ML BAG IV (08:58)
[2025-03-11] MEDS: Docusate Sodium 100 MG Capsule PO (08:58)
[2025-03-11] MEDS: Lactobacillis Acidophilus 1 CAP PO (08:59)
[2025-03-11] MEDS: Arthritis Pain Compound 60 CLICK TUBE TOPICAL (08:59)
[2025-03-11] MEDS: Menthol/Lanolin/Calamine/Znox 113 GM Tube 1 APPLIC TOPICAL (08:59)
[2025-03-11] MEDS: 0.9% Saline Lock 10 ML Syringe IV ×2 (09:57→15:30)
[2025-03-11 11:42] LABS: Bedside Glucose 282 mg/dL (74-106)
[2025-03-11] MEDS: Ascorbic Acid 500 MG Tablet 1000 MG PO (11:52)
[2025-03-11] MEDS: Insulin Lispro 100 UNIT/ML INSULN.PEN SC ×2 (11:53→16:49)
--- NOTE | 2025-03-11 12:09 | PN.RENAL_ITS ---
Subjective Subjective Sitting in chair. No overnight events. Objective Data Objective Data Vital Signs: Vital Signs Temp Pulse Resp BP Pulse Ox O2 Del Method 98.0 F 60 16 108/46 L 94 Room Air 03/11/25 08:22 03/11/25 08:57 03/11/25 08:22 03/11/25 08:49 03/11/25 08:22 03/11/25 08:22 Oxygen Delivery Method Room Air Weight: 75.2 kg Body Mass Index (BMI) 26.6 Intake & Output: Intake and Output for Last 24 Hours 03/09/25 03/10/25 03/11/25 23:59 23:59 23:59 Intake Total 350 / 350 1200 / 1200 198.75 / 198.75 Output Total 1000 / 1000 175 / 175 600 / 600 Balance -650 / -650 1025 / 1025 -401.25 / -401.25 Lab / Micro Data 03/11/25 07:15 03/11/25 07:15 Labs: Laboratory Results - last 24 hr 03/10/25 16:09: POC Glucose 278 H 03/10/25 20:56: POC Glucose 186 H 03/10/25 23:46: POC Glucose 142 H 03/11/25 06:22: POC Glucose 82 03/11/25 07:15: WBC 8.1, RBC 2.78 L, Hgb 8.0 L, Hct 25.3 L, MCV 91.0, MCH 28.8, MCHC 31.6 L, RDW Std Deviation 49.5 H, RDW Coeff of Jorgito 15.4 H, Plt Count 150, MPV 11.7, Immature Gran % (Auto) 0.900, Neut % (Auto) 67.0, Lymph % (Auto) 17.0 L, Hawkins % (Auto) 10.8 H, Eos % (Auto) 3.6, Baso % (Auto) 0.7, Absolute Neuts (auto) 5.4, Absolute Lymphs (auto) 1.37, Nucleated RBC % 0, Sodium 141, Potassium 4.2, Chloride 111 H, Carbon Dioxide 19.8 L, Anion Gap 10, BUN 53 H, C reatinine 1.41 H, Estim Creat Clear Calc 36.83 L, Est GFR (MDRD) Non-Af 39 L, B UN/Creatinine Ratio 37.8 H, Glucose 91, Calcium 8.4 03/11/25 11:19: POC Glucose 282 H Micro: Microbiology 03/07/25 15:20 Urine Catheter - Catheter Urine Culture - Final Klebsiella oxytoca 03/07/25 15:45 Stool Stool Occult Blood (ERICA) - Final Occult Blood Positive Physical Exam Narrative Alert and oriented x 3, no apparent distress S1, S2, RRR Lung sounds clear anteriorly and posteriorly Abdomen soft, nontender Bilateral lower legs wrapped with Marino wrap from knees to feet. No edema bilateral thighs. Assessment & Plan Assessment/Plan (1) SHAYY (acute kidney injury): (2) Chronic kidney disease: PLAN: Plan This is a 75-year-old female with past medical history significant for diabetes mellitus type 2 (per patient diagnosed in 1973), PAD/PVD, carotid disease, hypertension, OA, chronic anemia, anxiety and depression, multinodular thyroid, presented to the emergency room via EMS for fall. Nephrology consulted in view of elevated creatinine. In 2016 baseline creatinine ranging around 1.3-1.6, 07/16/2018 creatinine 1.43, 04/08/2020 creatinine 1.70. Lab work this admission on March 07 creatinine 2.54--> today SCr 1.41. Cr is closer to baseline. Good urine output. Rhabdomyolysis, mild. CK levels better. Bps low normal, on Toprol. Will arrange for hospital follow up at hospital discharge. Assessment and plan reviewed with Dr. Figueredo.
--- NOTE | 2025-03-11 12:09 | TREXTCAR_ITS ---
Diet Diet Order/Speech Therapy: 03/07/25 17:48 Diet: Consistent Carb - Calorie Controlled Food consistency:: Regular Liquid Consistency:: Regular/Thin Type of Dietary Supplement:: Glucerna Shake Diet Comments: Glucerna once daily with breakfast, pt prefers chocolate How many daily calories?: 1800 calorie Routine Orders/Code Status Suppository Type: Dulcolax 10mg Suppository Frequency: Daily PRN DC O2, CPAP, BIPAP needs Home O2 Discharge instructions: No Wound(s) bilateral feet: Wound Type: Neuropathic/Diabetic Foot Ulcer L heel: Wound Type: Pressure Injury Dressing Change: betadine gauze R heel, lateral side: Wound Type: Pressure Injury Dressing Change: betadine gauze L [place]: Wound Type: small scabbed over wound Dressing Change: dry dressing right medial lower leg: Wound Type: dry eschar Dressing Change: betadine gauze left posterior lower leg: Wound Type: dry eschar Dressing Change: betadine gauze left medial ankle: Wound Type: dry eschar Dressing Change: betadine gauze left lateral foot: Wound Type: dry eschar Dressing Change: betadine gauze Therapies Extremity Affected:: Bilateral Lower Physical Therapy: Eval and Treat Occupational Therapy: Eval and Treat Speech Therapy: Eval and Treat Problem/Diagnosis (1) Atherosclerosis of [place] artery of both lower extremities with gangrene: Status: Acute Code(s): I70.263 - Atherosclerosis of [place] arteries of extremities with gangrene, bilateral legs Plan The patient is a 75 y/o F was brought to ED after she slipped and fell 1 week ago and was on the ground all night until family came but was not evaluated. She had near fall situation about 3 days ago, slipped out of the bed onto the floor. Denies hitting her head or LOC. On Plavix. No fever or chills. Shortness of breath. Patient has diabetes mellitus with chronic wounds/ulcers on both feet managed by Dr. Irene, finishing doxycycline prescription #1. Frequent falls, L hip pain, adult failure to thrive, debility : PT and OT. 03/09: Patient out of bed to chair with help of PT. #2. SHAYY on Chronic Kidney Disease Stage III, : Admission BUN/Cr 130/2.54, baseline renal function previously 1.3-1.7 in 2019 with creatinine 1.70 03/09: Creatinine improved to 1.63 03/10: BUN/creatinine 65/1.47. Her creatinine is on baseline. SHAYY resolved. CK level better. #3. Acute rhabdomyolysis: Admission total creatinine kinase 837, repeat CK ordered 03/09: CK 308. #4. Acute Complicated Urinary Tract Infection: UA shows more than 100 WBCs cells, LE 500, positive nitrite. 03/10: Urine culture shows Klebsiella oxytoca more than thousand colonies. Sensitive to IV ceftriaxone. #5. Anemia of chronic disease: Patient has low serum iron, TIBC and low unsaturated iron therefore anemia of chronic disease. Ferritin is high. Patient admitted with H&H 8.3/25%, most recent 7.9/25% it was about 11 to 12 g back in June 2021. Severe anemia: H&H 7.6/23.5%. #6. Chronic diabetic foot wounds with left lower extremity recent fifth digit osteomyelitis complicated by underlying PAD/PVD: Recently noted pathology per Dr Ron Membreno 02/17/25 left foot fifth digit with evidence of osteomyelitis and periosteal supportive inflammation, most recent microbiology noted 02/26/2025 with anaerobic culture with anaerobic cocci, wound culture with MRSA sensitive to doxycycline: Continue doxycycline. Conservative management with offloading. Discussed case with Dr. Irene. 03/09: Urine culture shows Klebsiella oxytoca more than 100,000 colonies. Previous wound culture was positive of MRSA. Patient on IV ceftriaxone doxycycline and Flagyl. 03/10: Wound culture from 02/26 shows MRSA and anaerobic cocci. Currently patient on IV ceftriaxone doxycycline and Flagyl. ID consulted for further opinion. #7. PAD/PVD: Status post peripheral angioplasty 2012: Occult blood positive. Hemoglobin about 8. Baby aspirin continued. Continue Plavix as the risk for thrombosis and critical ischemia of leg is high Recent evaluation with 01/06/2025 JEFFREY/PVR noted right JEFFREY 0.73 with moderate arterial insufficiency and left JEFFREY 0.84 with moderate arterial insufficiency with pressures revealing aortoiliac disease, on the right specifically proximal femoral disease also. 03/10: Vascular surgery note reviewed. Noninvasive vascular study shows moderate disease bilateral. Currently patient recovering from SHAYY therefore CTA would not be a good option but may be done as an outpatient. After the CT angiogram, patient might need angiogram and other necessary intervention depending upon CTA. #8. Diabetes mellitus type II with chronic neuropathy with history of diabetic foot wounds, recent L foot wound as noted above: Hold oral home regimen, hemoglobin A1c requested as last noted 04/08/20 with hemoglobin A1c 6.1% thus remote, ADA diet, accu checks w/ ISS, continue home gabapentin regimen. #9. Carotid disease: Continue hypertensive regimen with adjustments as noted given SHAYY/rhabdo, diabetic regimen with adjustments as noted. Will temporally hold aspirin/Plavix given positive stool guaiac with unclear baseline hemoglobin with potential acute on chronic anemia. Will temporarily hold statin therapy until rhabdo resolved. #10. Hypertension: Continue home regimen including metoprolol, amlodipine with hold parameters as needed, PRN hydralazine. Holding lisinopril and hydrochlorothiazide given SHAYY as noted and need for hydration given rhabdo as well. #11. Hyperlipidemia: Temporarily hold statin therapy until rhabdo resolved. #12. Multinodular thyroid: Previously had followed with Dr. Moscoso status post ultrasound fine-needle aspiration of to the right sided nodules on the left side 04/18/2024 with all pathology noted to be benign follicular/colloid nodules, encourage continued outpatient follow-up as previously arranged. #13. Anxiety and depression: Per current list on a regimen, encourage continued outpatient evaluation and counseling/medications as appropriate. #14. Former tobacco use: Encourage continued tobacco cessation. #15. DVT prophylaxis: SCDs, defer chemoprophylaxis given positive guaiac of unclear exact significance. #16. CODE status: Patient VICTOR MANUEL is her sister and living will is currently in place. Discussed CODE status at length including difference between FULL code, DNR-CCA and DNR-CC status. Following discussions about the differences in these status, requested Full Code status. Allergies/Procedures Done in Hospital Allergies Sulfa (Sulfonamide Antibiotics) Allergy (Verified 03/07/25 13:44) Unknown doesn't remember/ allergy noted as a child Type of Care/Length of Stay Estimated LOS: Convalescent Care Less Than 30 days Type of Care Needed: Skilled Rehab Potential: Good Prognosis: Good Additional Orders/Day of Discharge Day of Discharge: 03/11/25 Dietary and Speech Recommendations Dietitian Recommendations/Changes: Continue with Consistent Carb - Calorie Controlled 1800kcal diet at this time. Pt would benefit from Cardiac diet as well, yet do not want to affect oral intakes. Continue Glucerna once daily with breakfast to help increase protein intakes. Will continue to follow, monitor oral intakes and modify nutrition interventions as needed. Discharge Plan Admission Admit Date/Time: 03/07/25 16:25 Attending Provider: Broderick Dempsey Primary Care Provider: Rishi Vasquez Consulting Providers: Patel Irene; Andrea Cornejo; Russell Clement; Maddie Merchant; Kwaku Mendoza Instructions Additional Instructions / Restrictions: Wound care orders: 1. Apply Betadine soaked gauze to the bilateral eschars: Right, lateral heel. Left, heel and distal lateral foot 2. Cover with dry sterile dressing 3. Apply cast padding from sulcus to toes to mid calf bilateral. 4. Apply 4 inch Marino from sulcus of toes to mid calf with little to no compression to hold bandages intact. 5. Acute change every other day. Discharge Orders/Prescriptions Prescriptions: New acetaminophen 325 mg Tablet 650 mg PO Q4H PRN PRN (Reason: Fever, pain 1-08/28) Qty: 0 0RF insulin lispro [Humalog KwikPen Insulin] 100 unit/mL Insulin Pen See Protocol subcut ACHS Qty: 0 0RF Protocol: 3. Sliding Scale Insulin Med Dosing Condition: 150-189 mg/dl = 1 unit Condition: 190-229 mg/dl = 2 units Condition: 230-269 mg/dl = 3 units Condition: 270-309 mg/dl = 4 units Condition: 310-349 mg/dl = 5 units Condition: 350-399 mg/dl = 6 units Condition: 400-449 mg/dl = 7 units Condition: Greater than 449 call physician Protocol Text: - Use for Total Daily Dose of Insulin 37-55 units - Obsese, infected, or steroid patients MEDIUM DOSING ALGORITHIM Continued calcium carbonate [Calcium 600] 600 mg calcium (1,500 mg) tablet 600 mg PO DAILY docusate sodium 100 mg capsule 100 mg PO BID aspirin 81 MG tablet 81 mg PO QHS Patient Comments: Per pt, Dr Yoo has instructed pt to continue Aspirin and clopidogrel thru surgery on [id number] multivitamin with folic acid 1 TABLET tablet 1 tab PO DAILY Patient Comments: vitamin supplement ascorbic acid (vitamin C) 500 mg tablet 1,000 mg PO LUNCH Patient Comments: supplement omega-3 fatty acids-fish oil 1 EACH capsule 1 ea PO DAILY Patient Comments: supplement cranberry extract 500 mg capsule 500 mg PO DINNER Patient Comments: supplement ferrous sulfate 325 MG tablet 325 mg PO DAILY pregabalin 100 mg capsule 100 mg PO TID Acidophilus Capsule 600 mg PO QDAY simvastatin 40 MG tablet 40 mg PO QHS Patient Comments: lowers cholesterol metoprolol succinate 50 mg tablet extended release 24 hr 50 mg PO DAILY Qty: 90 3RF clopidogrel 75 mg tablet 75 mg PO DAILY Qty: 90 3RF Patient Comments: ask about stopping amlodipine 10 mg tablet 10 mg PO DAILY Qty: 90 3RF Held hydrochlorothiazide 25 mg tablet 25 mg PO QAM Hold Instructions: Hold for 1 week until sees Tipple Worker lisinopril 20 mg tablet 20 mg PO DAILY Hold Instructions: Hold for 1 week until sees Tipple Worker glimepiride 4 mg tablet 4 mg PO DAILY Hold Instructions: Hold until her hypoglycemia resolved or may be discontinued because of CKD Discontinued metformin 500 mg tablet 500 mg PO BID doxycycline hyclate 100 mg capsule 100 mg PO BID 14 Days Qty: 28 0RF Referrals / Follow Up: Rishi Vasquez DO [Primary Care Provider] - Russell Clement MD [Med Staff - Active Staff] - Within 2 Weeks Sofia Figueredo MD [Med Staff - Consulting] - Within 1 Month Patel Irene DPM [Med Staff - Active Staff] - Within 2 Weeks Kwaku Mendoza MD [Med Staff - Active Staff] - Within 2 Weeks Disposition Disposition (needs filled in before D/C Order can be placed): [facility]
--- NOTE | 2025-03-11 12:22 | PCM.DC.SUM ---
Providers Date of Admission: 03/07/25 Date of Discharge: 03/11/25 Primary Care Physician: Dr. Rishi Vasquez, Consultations 03/07/25 17:48 Consult: Onc/Wound/freight trucker Routine Comment: Reason for Consult:: BL LE diabetic foot wounds Consult: Podiatry Routine Consulting Provider: Patel Irene Reason for Consult: BL diabetic foot wounds EMERGENT Consult: No MD Notified: Yes Date Notified: 03/07/25 Time Notified: 17:24 Method of Notification: Verbal 03/08/25 08:50 Consult: Vascular Surgery Routine Consulting Provider: Russell Clement Reason for Consult: PAD, LLE EMERGENT Consult: No MD Notified: Yes Date Notified: 03/09/25 Time Notified: 10:26 Method of Notification: office 03/08/25 14:07 Consult: Nephrology Routine Consulting Provider: Andrea Cornejo Reason for Consult: CKD stage 4, uremia EMERGENT Consult: No MD Notified: Yes Date Notified: 03/08/25 Time Notified: 14:07 Method of Notification: Text 03/10/25 15:40 Consult: Infectious Disease Routine Consulting Provider: Kwaku Mendoza Reason for Consult: wound cx, MRSA, UTI, Diabetic foot ulcer, PAD EMERGENT Consult: No MD Notified: Yes Date Notified: 03/10/25 Time Notified: 15:40 Method of Notification: Text Reason For Visit: ADULT FTT, FALLS, SHAYY, RHABDO, UTI Diagnosis Discharge Diagnosis (1) 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 She had near fall situation about 3 days ago, slipped out of the bed onto the floor. Denies hitting her head or LOC. On Plavix. No fever or chills. Shortness of breath. Patient has diabetes mellitus with chronic wounds/ulcers on both feet managed by Dr. Irene, finishing doxycycline prescription. #1. Frequent falls, L hip pain, adult failure to thrive, debility : PT and OT. 03/09: Patient out of bed to chair with help of PT. #2. SHAYY on Chronic Kidney Disease Stage III, : Admission BUN/Cr 130/2.54, baseline renal function previously 1.3-1.7 in 2019 with creatinine 1.70 03/09: Creatinine improved to 1.63 03/10: BUN/creatinine 65/1.47. Her creatinine is on baseline. SHAYY resolved. CK level better. 03/11: BUN/creatinine better 53/1.4. Will continue to hold lisinopril, glimepiride and metformin. On sliding scale insulin. #3. Acute rhabdomyolysis: Admission total creatinine kinase 837, repeat CK ordered 03/09: CK 308. #4. Acute Complicated Urinary Tract Infection: UA shows more than 100 WBCs cells, LE 500, positive nitrite. 03/10: Urine culture shows Klebsiella oxytoca more than thousand colonies. Sensitive to IV ceftriaxone. 03/11: ID consulted for wound infection and UTI #5. Anemia of chronic disease: Patient has low serum iron, TIBC and low unsaturated iron therefore anemia of chronic disease. Ferritin is high. Patient admitted with H&H 8.3/25%, most recent 7.9/25% it was about 11 to 12 g back in June 2021. Severe anemia: H&H 7.6/23.5%. #6. Chronic diabetic foot wounds with left lower extremity recent fifth digit osteomyelitis complicated by underlying PAD/PVD: Recently noted pathology per Dr. Membreno 02/17/25 left foot fifth digit with evidence of osteomyelitis and periosteal supportive inflammation, most recent microbiology noted 02/26/2025 with anaerobic culture with anaerobic cocci, wound culture with MRSA sensitive to doxycycline: Continue doxycycline. Conservative management with offloading. Discussed case with Dr. Irene. 03/09: Urine culture shows Klebsiella oxytoca more than 100,000 colonies. Previous wound culture was positive of MRSA. Patient on IV ceftriaxone doxycycline and Flagyl. 03/10: Wound culture from 02/26 shows MRSA and anaerobic cocci. Currently patient on IV ceftriaxone doxycycline and Flagyl. ID consulted for further opinion. 03/11: Discussed with Dr. Mendoza and he will see and prescribe antibiotics. #7. PAD/PVD: Status post peripheral angioplasty 2012: Occult blood positive. Hemoglobin about 8. Baby aspirin continued. Continue Plavix as the risk for thrombosis and critical ischemia of leg is high Recent evaluation with 01/06/2025 JEFFREY/PVR noted right JEFFREY 0.73 with moderate arterial insufficiency and left JEFFREY 0.84 with moderate arterial insufficiency with pressures revealing aortoiliac disease, on the right specifically proximal femoral disease also. 03/10: Vascular surgery note reviewed. Noninvasive vascular study shows moderate disease bilateral. Currently patient recovering from SHAYY therefore CTA would not be a good option but may be done as an outpatient. After the CT angiogram, patient might need angiogram and other necessary intervention depending upon CTA. #8. Diabetes mellitus type II with chronic neuropathy with history of diabetic foot wounds, recent L foot wound as noted above: Hold oral home regimen, hemoglobin A1c requested as last noted 04/08/20 with hemoglobin A1c 6.1% thus remote, ADA diet, accu checks w/ ISS, continue home gabapentin regimen. 03/11: Patient has low blood sugar 82. Today 282. Will continue Accu-Cheks and sliding scale coverage. Hold oral hypoglycemic medications because of CKD and labile glucose and risk of hypoglycemia #9. Carotid disease: Continue hypertensive regimen with adjustments as noted given SHAYY/rhabdo, diabetic regimen with adjustments as noted. Will temporally hold aspirin/Plavix given positive stool guaiac with unclear baseline hemoglobin with potential acute on chronic anemia. Will temporarily hold statin therapy until rhabdo resolved. #10. Hypertension: Continue home regimen including metoprolol, amlodipine with hold parameters as needed, PRN hydralazine. Holding lisinopril and hydrochlorothiazide given SHAYY as noted and need for hydration given rhabdo as well. #11. Hyperlipidemia: Temporarily hold statin therapy until rhabdo resolved. #12. Multinodular thyroid: Previously had followed with Dr. Moscoso status post ultrasound fine-needle aspiration of to the right sided nodules on the left side 04/18/2024 with all pathology noted to be benign follicular/colloid nodules, encourage continued outpatient follow-up as previously arranged. #13. Anxiety and depression: Per current list on a regimen, encourage continued outpatient evaluation and counseling/medications as appropriate. #14. Former tobacco use: Encourage continued tobacco cessation. #15. DVT prophylaxis: SCDs, defer chemoprophylaxis given positive guaiac of unclear exact significance. #16. CODE status: Patient VICTOR MANUEL is her sister and living will is currently in place. Discussed CODE status at length including difference between FULL code, DNR-CCA and DNR-CC status. Following discussions about the differences in these status, requested Full Code status. Discharge medication reconciliation done. Discharge follow-up instructions completed. Discharge process discussed with the patient and all questions were answered to patient's satisfaction. Follow with PCP in 1 to 2 weeks Total time spent, exact 35 minutes on discharge meds reconciliation, examination, coordination of care with nurses and ancillary staff, review of imaging and blood test and discussion with the patient on follow-up instructions. Medications at Discharge Home Medications aspirin 81 mg tablet,delayed release 81 mg PO QHS 01/13/14 multivitamin with folic acid 400 mcg tablet 1 tab PO DAILY 01/13/14 simvastatin 40 mg tablet 40 mg PO QHS 05/31/16 omega-3 fatty acids-fish oil 340 mg-1,000 mg capsule 1 ea PO DAILY 06/29/16 ferrous sulfate 325 mg (65 mg iron) tablet 325 mg PO DAILY 08/15/18 ascorbic acid (vitamin C) 500 mg tablet 1,000 mg PO LUNCH 11/25/20 calcium carbonate (Calcium 600) 600 mg PO DAILY 12/29/21 docusate sodium 100 mg capsule 100 mg PO BID 12/29/21 hydrochlorothiazide 25 mg tablet 25 mg PO QAM 02/07/22 Held on 03/11/25. Instructions: Hold for 1 week until sees Rug Cleaning Supervisor cranberry extract 500 mg capsule 500 mg PO DINNER 08/08/22 clopidogrel 75 mg tablet 75 mg PO DAILY #90 tabs 10/23/24 metoprolol succinate 50 mg tablet,extended release 24 hr 50 mg PO DAILY #90 tabs 10/23/24 amlodipine 10 mg tablet 10 mg PO DAILY Please hold RX until pt calls #90 tabs 12/25/24 Lactobacillus acidophilus (Acidophilus capsule) 600 mg PO QDAY 03/07/25 glimepiride 4 mg tablet 4 mg PO DAILY 03/07/25 Held on 03/11/25. Instructions: Hold until her hypoglycemia resolved or may be discontinued because of CKD lisinopril 20 mg tablet 20 mg PO DAILY 03/07/25 Held on 03/11/25. Instructions: Hold for 1 week until sees Rug Cleaning Supervisor pregabalin 100 mg capsule 100 mg PO TID 03/07/25 acetaminophen 325 mg tablet 650 mg (2 x 325 mg) PO Q4H PRN PRN Fever, pain 1-08/28 #0 tabs 03/11/25 cefdinir 300 mg capsule 300 mg PO BID #56 caps 03/11/25 doxycycline monohydrate 100 mg capsule 100 mg PO BID 28 days #56 caps 03/11/25 insulin lispro 100 unit/mL subcutaneous pen (Humalog KwikPen (U-100) Insulin) See Protocol subcut ACHS #0 mL 03/11/25 metronidazole 500 mg tablet 500 mg PO TID 28 days #84 tabs 03/11/25 Physical Exam Narrative Seen and examined. Patient is going discharged to TCU. No active intervention including CT angiogram and runoff of aorta planned for this hospital visit because of CKD. Patient is chronically debilitated with a diabetic ulcer in lower extremities, swelling and pain. Is being followed by audio visual tech Dr. Irene in [facility]. Suspected peripheral artery disease. Patient stated that she is ambulatory on walker. Physical exam General: Alert, Oriented x3, Cooperative. BMI 26.5 kg/m? HEENT: Atraumatic, PERRLA, EOMI, Normocephalic Oral: No Gingival or Mucosal Lesions/ Ulcerations Neck: Supple, No JVD, Negative Carotid Bruits Chest wall/Lungs: Air entry diminished in bilateral lung bases. No crepitation/rhonchi Cardiovascular: Sinus rhythm. No murmur DP and PT pulses are faintly palpable on both lower extremities. Abdomen: Bowel Sounds Present, Soft, Non Tender, Non-Distended : No dysuria. No renal angle tenderness. No suprapubic tenderness. Extremities: No edema, Capillary Refill Less than 3 Seconds Skin: Chronic ulcer present on the left heel large, unstageable. Dry eschar to the right lateral heel unstageable. Mild bruise upper gluteal region improved. Multiple amputation of the toes. Musculoskeletal: Moderate muscle atrophy of extremities, intervertebral muscle. Mild malnutrition. Neurological: Cranial nerves II-XII grossly intact, DTR 2+/4. No acute focal neurological deficit. Psych/Mental Status: Flat affect Weight / BMI Weight Weight: 165 lb 12.602 oz Body Mass Index (BMI) 26.6 ABG / Lab / Microbiology Data 03/11/25 07:15 03/11/25 07:15 Laboratory: Laboratory Results - last 24 hr 03/10/25 16:09: POC Glucose 278 H 03/10/25 20:56: POC Glucose 186 H 03/10/25 23:46: POC Glucose 142 H 03/11/25 06:22: POC Glucose 82 03/11/25 07:15: WBC 8.1, RBC 2.78 L, Hgb 8.0 L, Hct 25.3 L, MCV 91.0, MCH 28.8, MCHC 31.6 L, RDW Std Deviation 49.5 H, RDW Coeff of Jorgito 15.4 H, Plt Count 150, MPV 11.7, Immature Gran % (Auto) 0.900, Neut % (Auto) 67.0, Lymph % (Auto) 17.0 L, [place] % (Auto) 10.8 H, Eos % (Auto) 3.6, Baso % (Auto) 0.7, Absolute Neuts (auto) 5.4, Absolute Lymphs (auto) 1.37, Nucleated RBC % 0, Sodium 141, Potassium 4.2, Chloride 111 H, Carbon Dioxide 19.8 L, Anion Gap 10, BUN 53 H, Creatinine 1.41 H, Estim Creat Clear Calc 36.83 L, Est GFR (MDRD) Non-Af 39 L, BUN/Creatinine Ratio 37.8 H, Glucose 91, Calcium 8.4 03/11/25 11:19: POC Glucose 282 H Microbiology: Microbiology 03/07/25 15:20 Urine Catheter - Catheter Urine Culture - Final Klebsiella oxytoca 03/07/25 15:45 Stool Stool Occult Blood (ERICA) - Final Occult Blood Positive D/C Instructions DC O2, CPAP, BIPAP Needs Home O2 Discharge instructions: No Meaningful Use Info Meaningful Use Meaningful Use Diagnoses (Choose all that apply): None applicable Ischemic Stroke Statin Dosing Therapy Reference: STATIN DOSE THERAPY REFERENCE: * Patients > 75 years receive moderate or high dose statin therapy. * Patients 75 years or YOUNGER should receive HIGH intensity statin dose unless contraindicated. You will be required to document reason for non-treatment if statin daily dose does not meet guidelines. HIGH DOSE STATIN THERAPY DAILY Atorvastatin > than or = to 40 mg Rosuvastatin > than or = to 20 mg Amlodipine + Atorvastatin > than or = to 2.5/40 mg Ezetimibe + Simvastatin 10/80 mg Simvastatin 80mg Discharge Plan Admission Admit Date/Time: 03/07/25 16:25 Primary Reason for Your Visit: Foot infection. Attending Provider: Broderick Dempsey Primary Care Provider: Rishi Vasquez Consulting Providers: Patel Irene; Andrea Cornejo; Russell Clement; Maddie Merchant; Kwaku Mendoza Instructions Additional Instructions / Restrictions: Wound care orders: 1. Apply Betadine soaked gauze to the bilateral eschars: Right, lateral heel. Left, heel and distal lateral foot 2. Cover with dry sterile dressing 3. Apply cast padding from sulcus to toes to mid calf bilateral. 4. Apply 4 inch [place] from sulcus of toes to mid calf with little to no compression to hold bandages intact. 5. Acute change every other day. Discharge Orders/Prescriptions Prescriptions: New acetaminophen 325 mg Tablet 650 mg PO Q4H PRN PRN (Reason: Fever, pain 1-08/28) Qty: 0 0RF insulin lispro [Humalog KwikPen Insulin] 100 unit/mL Insulin Pen See Protocol subcut ACHS Qty: 0 0RF Protocol: 3. Sliding Scale Insulin Med Dosing Condition: 150-189 mg/dl = 1 unit Condition: 190-229 mg/dl = 2 units Condition: 230-269 mg/dl = 3 units Condition: 270-309 mg/dl = 4 units Condition: 310-349 mg/dl = 5 units Condition: 350-399 mg/dl = 6 units Condition: 400-449 mg/dl = 7 units Condition: Greater than 449 call physician Protocol Text: - Use for Total Daily Dose of Insulin 37-55 units - Obsese, infected, or steroid patients MEDIUM DOSING ALGORITHIM doxycycline monohydrate 100 mg Capsule 100 mg PO BID 28 Days Qty: 56 0RF cefdinir 300 mg capsule 300 mg PO BID Qty: 56 0RF metronidazole 500 mg tablet 500 mg PO TID 28 Days Qty: 84 0RF Continued calcium carbonate [Calcium 600] 600 mg calcium (1,500 mg) tablet 600 mg PO DAILY docusate sodium 100 mg capsule 100 mg PO BID aspirin 81 MG tablet 81 mg PO QHS Patient Comments: Per pt, Dr Yoo has instructed pt to continue Aspirin and clopidogrel thru surgery on [id number] multivitamin with folic acid 1 TABLET tablet 1 tab PO DAILY Patient Comments: vitamin supplement ascorbic acid (vitamin C) 500 mg tablet 1,000 mg PO LUNCH Patient Comments: supplement omega-3 fatty acids-fish oil 1 EACH capsule 1 ea PO DAILY Patient Comments: supplement cranberry extract 500 mg capsule 500 mg PO DINNER Patient Comments: supplement ferrous sulfate 325 MG tablet 325 mg PO DAILY pregabalin 100 mg capsule 100 mg PO TID Acidophilus Capsule 600 mg PO QDAY simvastatin 40 MG tablet 40 mg PO QHS Patient Comments: lowers cholesterol metoprolol succinate 50 mg tablet extended release 24 hr 50 mg PO DAILY Qty: 90 3RF clopidogrel 75 mg tablet 75 mg PO DAILY Qty: 90 3RF Patient Comments: ask about stopping amlodipine 10 mg tablet 10 mg PO DAILY Qty: 90 3RF Held hydrochlorothiazide 25 mg tablet 25 mg PO QAM Hold Instructions: Hold for 1 week until sees Rug Cleaning Supervisor lisinopril 20 mg tablet 20 mg PO DAILY Hold Instructions: Hold for 1 week until sees Rug Cleaning Supervisor glimepiride 4 mg tablet 4 mg PO DAILY Hold Instructions: Hold until her hypoglycemia resolved or may be discontinued because of CKD Discontinued metformin 500 mg tablet 500 mg PO BID doxycycline hyclate 100 mg capsule 100 mg PO BID 14 Days Qty: 28 0RF Referrals / Follow Up: Russell Clement MD [Med Staff - Active Staff] - Within 2 Weeks Sofia Figueredo MD [Med Staff - Consulting] - Within 1 Month Rishi Vasquez DO [Primary Care Provider] - Patel Irene DPM [Med Staff - Active Staff] - Within 2 Weeks Kwaku Mendoza MD [Med Staff - Active Staff] - Within 2 Weeks Disposition Disposition (needs filled in before D/C Order can be placed): Half-Way Facility Charges/Coding Visit Charges Inpatient E&M: 91558 Disch Hosp >30min
--- NOTE | 2025-03-11 12:54 | PCM.CONS.GEN ---
Assessment & Plan Assessment/Plan (1) Acute UTI: PLAN: Ucx with klebs, feeling better. (2) Osteomyelitis of left foot: QUALIFIERS: Osteomyelitis type: subacute Qualified Code(s): M86.272 - Subacute osteomyelitis, left ankle and foot PLAN: Wound cx with MRSA and anaerobes from prior to admit. Unclear depth of infection, no recent imaging of foot here. Podiatry and vascular following. Plan on po doxy 100mg bid, cefdinir 300mg bid, and flagyl 500mg tid for 4 weeks. ID followup in 2 weeks. Will follow, thank you HPI Consult Data Date of Consult: 03/11/25 HPI Narrative Reason for Consultation: osteo HPI Narrative: KIMBERLY NEWMAN, is a 75 F with h/o CKD, PAD/PVD, presented 03/07 to the ED with multiple falls at home over the previous week. Admitted on ceftriaxone for suspected, now on doxy, ceftriaxone, and flagyl to cover foot infection. No pain in foot. No fever, no n/v/d. Discharge planned. Has been dealing with foot ulcers bilaterally, following with Dr. Irene. Seen by him and vascular during admit. Had been on po doxy as outpt. Full ROS performed and neg except as noted above. COUNT INCLUDES THE [facility] Medical History MRSA (methicillin resistant staph aureus) culture positive Depression Diabetes Back pain Vertigo History of pain when walking Hypertension Arthritis Wears dentures Post-menopausal Low iron High cholesterol Easy bruising Neuropathy Dietary restriction Former smoker Cardiology follow-up encounter History of torn meniscus of left knee Carotid artery stenosis Essential hypertension Skin lesion Hammer toe of left foot Osteomyelitis Chronic kidney disease, stage 3 Atherosclerosis of coronary artery of [place] heart without angina pectoris Hyperlipidemia Peripheral vascular occlusive disease Hammer toe of second toe of left foot Hallux valgus (acquired), right foot Healed ulcer of left foot on examination Chronic ulcer of left foot with fat layer exposed Delayed wound healing Malnutrition Osteomyelitis of foot 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 Methicillin resistant Staphylococcus aureus infection Chronic osteomyelitis of left foot Non-healing ulcer of right foot DM2 (diabetes mellitus, type 2) Home Medications ?Medication ?Instructions ?Recorded ?Last Taken ?Type aspirin 81 mg tablet,delayed 81 mg PO QHS 01/13/14 08/30/16 History release multivitamin with folic acid 400 1 tab PO DAILY 01/13/14 11/14/16 History mcg tablet simvastatin 40 mg tablet 40 mg PO QHS 05/31/16 08/30/16 History omega-3 fatty acids-fish oil 340 1 ea PO DAILY 06/29/16 08/27/16 History mg-1,000 mg capsule ferrous sulfate 325 mg (65 mg 325 mg PO DAILY 08/15/18 Unknown History iron) tablet ascorbic acid (vitamin C) 500 mg 1,000 mg PO LUNCH 11/25/20 Unknown History tablet calcium carbonate (Calcium 600) 600 mg PO DAILY 12/29/21 Unknown History docusate sodium 100 mg capsule 100 mg PO BID 12/29/21 Unknown History hydrochlorothiazide 25 mg tablet 25 mg PO QAM 02/07/22 Unknown History Held on 03/11/25. Instructions: Hold for 1 week until sees Audio Production Instructor cranberry extract 500 mg capsule 500 mg PO DINNER 08/08/22 Unknown History clopidogrel 75 mg tablet 75 mg PO DAILY #90 tabs 10/23/24 Unknown Rx metoprolol succinate 50 mg 50 mg PO DAILY #90 tabs 10/23/24 Unknown Rx tablet,extended release 24 hr amlodipine 10 mg tablet 10 mg PO DAILY Please hold RX 12/25/24 Unknown Rx until pt calls #90 tabs Lactobacillus acidophilus 600 mg PO QDAY 03/07/25 Unknown History (Acidophilus capsule) glimepiride 4 mg tablet 4 mg PO DAILY 03/07/25 Unknown History Held on 03/11/25. Instructions: Hold until her hypoglycemia resolved or may be discontinued because of CKD lisinopril 20 mg tablet 20 mg PO DAILY 03/07/25 Unknown History Held on 03/11/25. Instructions: Hold for 1 week until sees Audio Production Instructor pregabalin 100 mg capsule 100 mg PO TID 03/07/25 Unknown History acetaminophen 325 mg tablet 650 mg (2 x 325 mg) PO Q4H PRN PRN 03/11/25 Unknown Rx Fever, pain 1-08/28 #0 tabs insulin lispro 100 unit/mL See Protocol subcut ACHS #0 mL 03/11/25 Unknown Rx subcutaneous pen (Humalog KwikPen (U-100) Insulin) Allergy/AdvReac Type Severity Reaction Status Date / Time Sulfa (Sulfonamide Allergy Unknown Verified 03/07/25 13:44 Antibiotics) Family History Father CAD (coronary artery disease) Heart disease Hypertension CVA (cerebral vascular accident) Mother COPD (chronic obstructive pulmonary disease) Hypertension Heart disease Heart failure Surgical History History of repair of left rotator cuff History of total left knee replacement (~2014) History of angioplasty of peripheral vessel (~2012) amputation left toe History of left heart catheterization (~01/20/14) Social History household members: none Smoking Status: Former smoker how long ago did patient quit smokin years ago alcohol intake: never substance use type: does not use caffeine: No Physical Exam Const alert, oriented x3 and no apparent distress General Appearance: cooperative HEENT normocephalic and head/scalp atraumatic Eyes PERRL and EOMs intact bilaterally Neck supple and No nodes Resp normal air movement and clear to auscultation bilaterally Cardio regular rate and regular rhythm GI soft to palpation, non-tender and non-distended Extremity General Extremity: Negative for edema Skin Skin Narrative: reviewed photos Neuro CN's II-XII intact bilaterally Lab / Micro Data Attestation: I reviewed the patient's lab results. 03/11/25 07:15 03/11/25 07:15 Labs: Laboratory Results - last 24 hr 03/10/25 16:09: POC Glucose 278 H 03/10/25 20:56: POC Glucose 186 H 03/10/25 23:46: POC Glucose 142 H 03/11/25 06:22: POC Glucose 82 03/11/25 07:15: WBC 8.1, RBC 2.78 L, Hgb 8.0 L, Hct 25.3 L, MCV 91.0, MCH 28.8, MCHC 31.6 L, RDW Std Deviation 49.5 H, RDW Coeff of Jorgito 15.4 H, Plt Count 150, MPV 11.7, Immature Gran % (Auto) 0.900, Neut % (Auto) 67.0, Lymph % (Auto) 17.0 L, [place] % (Auto) 10.8 H, Eos % (Auto) 3.6, Baso % (Auto) 0.7, Absolute Neuts (auto) 5.4, Absolute Lymphs (auto) 1.37, Nucleated RBC % 0, Sodium 141, Potassium 4.2, Chloride 111 H, Carbon Dioxide 19.8 L, Anion Gap 10, BUN 53 H, Creatinine 1.41 H, Estim Creat Clear Calc 36.83 L, Est GFR (MDRD) Non-Af 39 L, BUN/Creatinine Ratio 37.8 H, Glucose 91, Calcium 8.4 03/11/25 11:19: POC Glucose 282 H
--- NOTE | 2025-03-11 13:19 | PHA.DC_ITS ---
Pharmacy [place] Med Reconciliation Pharmacy Service has performed discharge medication reconciliation for this patient. The patient's discharge medication list was reviewed for discrepancies and discrepancies were resolved. Medications at Discharge Home Medications aspirin 81 mg tablet,delayed release 81 mg PO QHS 01/13/14 multivitamin with folic acid 400 mcg tablet 1 tab PO DAILY 01/13/14 simvastatin 40 mg tablet 40 mg PO QHS 05/31/16 omega-3 fatty acids-fish oil 340 mg-1,000 mg capsule 1 ea PO DAILY 06/29/16 ferrous sulfate 325 mg (65 mg iron) tablet 325 mg PO DAILY 08/15/18 ascorbic acid (vitamin C) 500 mg tablet 1,000 mg PO LUNCH 11/25/20 calcium carbonate (Calcium 600) 600 mg PO DAILY 12/29/21 docusate sodium 100 mg capsule 100 mg PO BID 12/29/21 hydrochlorothiazide 25 mg tablet 25 mg PO QAM 02/07/22 Held on 03/11/25. Instructions: Hold for 1 week until sees Disease Intervention Specialist cranberry extract 500 mg capsule 500 mg PO DINNER 08/08/22 clopidogrel 75 mg tablet 75 mg PO DAILY #90 tabs 10/23/24 metoprolol succinate 50 mg tablet,extended release 24 hr 50 mg PO DAILY #90 tabs 10/23/24 amlodipine 10 mg tablet 10 mg PO DAILY Please hold RX until pt calls #90 tabs 12/25/24 Lactobacillus acidophilus (Acidophilus capsule) 600 mg PO QDAY 03/07/25 glimepiride 4 mg tablet 4 mg PO DAILY 03/07/25 Held on 03/11/25. Instructions: Hold until her hypoglycemia resolved or may be discontinued because of CKD lisinopril 20 mg tablet 20 mg PO DAILY 03/07/25 Held on 03/11/25. Instructions: Hold for 1 week until sees Disease Intervention Specialist pregabalin 100 mg capsule 100 mg PO TID 03/07/25 acetaminophen 325 mg tablet 650 mg (2 x 325 mg) PO Q4H PRN PRN Fever, pain 1- 08/28 #0 tabs 03/11/25 insulin lispro 100 unit/mL subcutaneous pen (Humalog KwikPen (U-100) Insulin) See Protocol subcut ACHS #0 mL 03/11/25
[2025-03-11 15:34] VITALS: BP 112/47; PULSE 58; RESP 16; TEMP 36.6; O2SAT 97
[2025-03-11 17:11] LABS: Bedside Glucose 164 mg/dL (74-106)
--- NOTE | 2025-03-11 17:13 | CASEMGMT ---
Social Work- SW received notice that TCU will accept referral. Precert started. BREANNA Salvador
--- NOTE | 2025-03-11 17:15 | CASEMGMT ---
Social Work- SW received notice that precert has been received. SW updated physician. Physician feels pt is medically ready and will d/c. Pt updated and agreeable to discharge to TCU. BREANNA Salvador
--- NOTE | 2025-03-11 17:22 | CASEMGMT ---
Social Work- Physician feels pt is medically ready for discharge. SW faxed discharge to TCU. SW updated. Pt reports SW does not need to notify anyone else. Plan: TCU; skilled level of care BREANNA Salvador
== END 2025-03-11 17:12 | disposition skilled nursing facility (03) | DRG 638 ==
LOC: ED 16:32 → MS3 16:57
PROVIDERS: Nurse Practitioner Adult Health; Physician Assistant; Admitting Provider Family Medicine; Emergency Provider Emergency Medicine; PCP Student in an Organized Health Care Education/Training Program; Referring Provider Family Medicine; Visit Provider Internal Medicine
DX: E11.69 Type 2 diabetes mellitus with other specified complication (principal); E11.52 Type 2 diabetes mellitus with diabetic peripheral angiopathy with gangrene; I70.263 Atherosclerosis of native arteries of extremities with gangrene, bilateral legs; M62.82 Rhabdomyolysis; L97.414 Non-pressure chronic ulcer of right heel and midfoot with necrosis of bone; L97.424 Non-pressure chronic ulcer of left heel and midfoot with necrosis of bone; M86.172 Other acute osteomyelitis, left ankle and foot; L97.526 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 foot with bone involvement without evidence of necrosis; N39.0 Urinary tract infection, site not specified; D63.1 Anemia in chronic kidney disease; B96.1 Klebsiella pneumoniae [K. pneumoniae] as the cause of diseases classified elsewhere; R62.7 Adult failure to thrive; N18.32 Chronic kidney disease, stage 3b; F32.A Depression, unspecified; I12.9 Hypertensive chronic kidney disease with stage 1 through stage 4 chronic kidney disease, or unspecified chronic kidney disease; E04.2 Nontoxic multinodular goiter; N17.9 Acute kidney failure, unspecified; E11.22 Type 2 diabetes mellitus with diabetic chronic kidney disease; L97.519 Non-pressure chronic ulcer of other part of right foot with unspecified severity; E11.51 Type 2 diabetes mellitus with diabetic peripheral angiopathy without gangrene; S40.011A Contusion of right shoulder, initial encounter; E11.42 Type 2 diabetes mellitus with diabetic polyneuropathy; I25.10 Atherosclerotic heart disease of native coronary artery without angina pectoris; E78.00 Pure hypercholesterolemia, unspecified; S70.02XA Contusion of left hip, initial encounter; D50.9 Iron deficiency anemia, unspecified; E11.621 Type 2 diabetes mellitus with foot ulcer; M19.90 Unspecified osteoarthritis, unspecified site; F41.9 Anxiety disorder, unspecified; W19.XXXA Unspecified fall, initial encounter; E11.622 Type 2 diabetes mellitus with other skin ulcer; Z89.422 Acquired absence of other left toe(s); E11.59 Type 2 diabetes mellitus with other circulatory complications; Z79.02 Long term (current) use of antithrombotics/antiplatelets; Z79.82 Long term (current) use of aspirin; R53.81 Other malaise; Z87.891 Personal history of nicotine dependence; B95.62 Methicillin resistant Staphylococcus aureus infection as the cause of diseases classified elsewhere; Z88.2 Allergy status to sulfonamides; Z79.84 Long term (current) use of oral hypoglycemic drugs; Z79.899 Other long term (current) drug therapy; R29.6 Repeated falls; Z82.49 Family history of ischemic heart disease and other diseases of the circulatory system; Z96.652 Presence of left artificial knee joint; Z98.62 Peripheral vascular angioplasty status
CPT/HCPCS: 36415; 71045; 73502; 76770; 80048; 80053; 80076; 81001; 82274; 82550; 82570; 82607; 82728; 82746; 82962; 83036; 83540; 83550; 83735; 84100; 84156; 85014; 85018; 85025; 86850; 86900; 86901; 87077; 87086; 87088; 87186; 93005; 94668; 97161; 97166; 97530; 97535; 97802; 97803; 99285; A4216

== ENCOUNTER 2025-03-11 17:26 | Inpatient (IN) | payer MEDICARE, SELFPAY ==
[2025-03-11 17:28] VITALS: BP 122/59; PULSE 56; RESP 18; TEMP 36.9; O2SAT 98; BMI 26.2
--- NOTE | 2025-03-11 19:09 | HP.PCM_ITS ---
HPI - General General Date of Admission: 03/11/25 Date of Service: 03/12/25 Chief Complaint: Here for rehabilitation. HPI Narrative KIMBERLY NEWMAN, is a 75 Female who presents with followin03/07/2025 [facility] ED fall. Chronic bilateral diabetic foot ulcers, recurrent falls for 1 week. 3 falls in the past week, no LOC, no head injury, on Plavix. Sees Dr. Irene for diabetic foot ulcers, improving with Doxycycline. BUN 130, Creatinine 2.54, CK 387. Urinalysis c/w uti, urine culture sent, Ceftriaxone IV given. 03/07/[address] [facility]. Ceftriaxone IV for UTI, urine culture pending. IV fluids for SHAYY, Dehydration, Rhabdomyolysis. Consult Podiatry for diabetic foot ulcers. PT/OT/CM. 03/08/2025 PT/OT left hip pain, falls. Continue IV fluids for SHAYY, Dehydration, Rhabdomyolysis. Continue Ceftriaxone IV for UTI, urine culture pending. Conservative management, Doxycycline, for diabetic foot ulcers. A1c 6.1%. 03/09/2025 Suspect PAOD, walks with walker. OOB to chair with PT. Creatinine 1.63 improved, CK 308 improved. Ceftriaxone IV for UTI. Hold statin for rhabdomyolysis. 03/10/2025 SHAYY resolved, Creatinine 1.47 baseline. Urine culture growing Klebsiella Oxytoca, Ceftriaxone IV. 02/26/2025 wound culture MRSA, Anaerobic cocci, Ceftriaxone, Doxycycline, Flagyl for diabetic foot ulcer infection, consult ID. Vascular surgery recommended CTA with runoff, possible intervention for PAOD as outpatient. 03/11/2025 Dr. Mendoza recommended Doxycycline 100mg bid, Cefdinir 300mg bid, Flagyl 500mg tid x 4 weeks for MRSA osteomyelitis left diabetic foot. 03/11/2025 Admit to TCU with debility, here for rehabilitation, strengthening, wound care, prior to discharge home alone. [facility] Medical History MRSA (methicillin resistant staph aureus) culture positive Depression Diabetes Back pain Vertigo History of pain when walking Hypertension Arthritis Wears dentures Post-menopausal Low iron High cholesterol Easy bruising Neuropathy Dietary restriction Former smoker Cardiology follow-up encounter History of torn meniscus of left knee Carotid artery stenosis Essential hypertension Skin lesion Hammer toe of left foot Osteomyelitis Chronic kidney disease, stage 3 Atherosclerosis of coronary artery of [place] heart without angina pectoris Hyperlipidemia Peripheral vascular occlusive disease Hammer toe of second toe of left foot Hallux valgus (acquired), right foot Healed ulcer of left foot on examination Chronic ulcer of left foot with fat layer exposed Delayed wound healing Malnutrition Osteomyelitis of foot 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 Methicillin resistant Staphylococcus aureus infection Chronic osteomyelitis of left foot Non-healing ulcer of right foot DM2 (diabetes mellitus, type 2) Home Medications ?Medication ?Instructions ?Recorded ?Last Taken ?Type aspirin 81 mg tablet,delayed 81 mg PO QHS blood clots 01/13/14 03/10/25 20:55 History release multivitamin with folic acid 400 1 tab PO DAILY Supple ment 01/13/14 11/14/16 History mcg tablet simvastatin 40 mg tablet 40 mg PO QHS cholesterol 08/30/16 History omega-3 fatty acids-fish oil 340 1 ea PO DAILY supplem ent 06/29/16 08/27/16 History mg-1,000 mg capsule ferrous sulfate 325 mg (65 mg 325 mg PO DAILY SUPPLEME NT 08/15/18 03/08/25 History iron) tablet ascorbic acid (vitamin C) 500 mg 1,000 mg PO LUNCH Sup plement 11/25/20 03/11/25 11:50 History tablet calcium carbonate (Calcium 600) 600 mg PO DAILY supple ment 12/29/21 Unknown History docusate sodium 100 mg capsule 100 mg PO BID constipat ion 12/29/21 03/11/25 08:55 History hydrochlorothiazide 25 mg tablet 25 mg PO QAM HEART Unknown History Held on 03/11/25. Instructions: Hold for 1 week until sees Optimization Engineer cranberry extract 500 mg capsule 500 mg PO DINNER Urin asmita tract 08/08/22 Unknown History clopidogrel 75 mg tablet 75 mg PO DAILY Blood clots # 90 tabs 10/23/24 03/11/25 08:55 Rx metoprolol succinate 50 mg 50 mg PO DAILY BP #90 tabs 10/23/24 03/11/25 08:55 Rx tablet,extended release 24 hr amlodipine 10 mg tablet 10 mg PO DAILY Please hold R X 12/25/24 03/09/25 08:25 Rx until pt calls #90 tabs Lactobacillus acidophilus 600 mg PO QDAY gi 03/07/25 0 03/11/25 09:00 History (Acidophilus capsule) glimepiride 4 mg tablet 4 mg PO DAILY dm 03/07/25 Un known History Held on 03/11/25. Instructions: Hold until her hypoglycemia resolved or may be discontinued because of CKD lisinopril 20 mg tablet 20 mg PO DAILY BP 03/07/25 U nknown History Held on 03/11/25. Instructions: Hold for 1 week until sees Optimization Engineer pregabalin 100 mg capsule 100 mg PO TID nerve pain 03/11/25 11:50 History acetaminophen 325 mg tablet 650 mg (2 x 325 mg) PO Q4H PRN PRN 03/11/25 03/11/25 08:55 Rx Fever, pain 1-08/28 #0 tabs cefdinir 300 mg capsule 300 mg PO BID UTI #56 caps 0 03/11/25 Unknown Rx doxycycline monohydrate 100 mg 100 mg PO BID UTI 28 da ys #56 caps 03/11/25 U nknown Rx capsule insulin lispro 100 unit/mL See Protocol subcut ACHS DM #0 mL 03/11/25 03/11/25 17:00 Rx subcutaneous pen (Humalog KwikPen (U-100) Insulin) metronidazole 500 mg tablet 500 mg PO TID WOUND 28 day s #84 03/11/25 Unknown Rx tabs Allergy/AdvReac Type Severity Reaction Status Date / Time Sulfa (Sulfonamide Allergy Unknown Verified 03/07/25 13:44 Antibiotics) Family History Father CAD (coronary artery disease) Heart disease Hypertension CVA (cerebral vascular accident) Mother COPD (chronic obstructive pulmonary disease) Hypertension Heart disease Heart failure Surgical History History of repair of left rotator cuff History of total left knee replacement (~2014) History of angioplasty of peripheral vessel (~2012) amputation left toe History of left heart catheterization (~01/20/14) Social History household members: none Smoking Status: Former smoker how long ago did patient quit smokin years ago alcohol intake: never substance use type: does not use caffeine: No ROS Constitutional Constitutional: Reports weakness; Denies chills, fever(s) or weight gain ENT HEENT: Denies headache(s), nasal congestion or nasal discharge Cardiovascular Cardiovascular: Denies chest pain or palpitations Respiratory/Chest Respiratory/Chest: Denies cough, excessive phlegm production or shortness of breath with exertion Gastrointestinal Gastrointestinal: Denies abdominal pain, nausea or vomiting Genitourinary Genitourinary: Denies dysuria Musculoskeletal Musculoskeletal: Denies joint pain or joint swelling Integumentary Integumentary: Denies rash or wounds Neurologic Neurologic: Denies focal weakness, numbness or tingling Psychiatric Psychiatric: Denies anxiety, auditory hallucinations, depression, homicidal ideation or suicidal ideation Vital Signs Vital Signs Vital Signs: 03/11/25 17:28 Temperature 98.4 F Temperature Source Temporal Pulse Rate 56 L Respiratory Rate 18 Blood Pressure 122/59 H Blood Pressure Mean 80 Blood Pressure Source Monitor Blood Pressure Position Sitting Blood Pressure Location Right Arm Pulse Ox 98 Oxygen Delivery Method Room Air Weight Weight: 73.652 kg Body Mass Index (BMI) 26.2 Physical Exam Const alert General Appearance: cooperative HEENT normocephalic Eyes PERRL and EOMs intact bilaterally Neck supple, no JVD and no carotid bruits Resp normal respiratory effort, normal air movement and clear to auscultation bilaterally Cardio regular rate and regular rhythm GI normal to inspection, nondistended, normoactive bowel sounds, non-tender and non-distended Extremity normal capillary refill Extremity Narrative: bilateral lower extremities dressed. General Extremity: Negative for edema Skin no rashes or lesions noted General Skin Exam: no breakdown Psych affect normal Appearance: appropriate Assessment & Plan Assessment/Plan (1) Debility: (2) Multiple falls: (3) Urinary tract infection: (4) SHAYY (acute kidney injury): (5) Rhabdomyolysis: (6) Diabetic foot ulcer: (7) Osteomyelitis of left foot: QUALIFIERS: Osteomyelitis type: subacute Qualified Code(s): M86.272 - Subacute osteomyelitis, left ankle and foot (8) PAOD (peripheral arterial occlusive disease): (9) Type 2 diabetes mellitus with hyperglycemia: (10) Essential (primary) hypertension: (11) Hyperlipidemia: QUALIFIERS: Hyperlipidemia type: unspecified Qualified Code(s): E78.5 - Hyperlipidemia, unspecified (12) Iron deficiency anemia: (13) Diabetes mellitus with polyneuropathy: QUALIFIERS: Diabetes mellitus type: type 2 Qualified Code(s): E11.42 - Type 2 diabetes mellitus with diabetic polyneuropathy (14) Chronic kidney disease, stage 3b: PLAN: Plan 75 year old female with below past medical history hospitalized for multiple falls 2/2 urinary tract infection, complicated by acute kidney injury, rhabdomyolysis, diabetic foot ulcers, osteomyelitis of left foot, paod, admitted to TCU with debility, here for rehabilitation, strengthening, prior to discharge home alone. * Debility - PT/OT. * Pain - Tylenol 1000mg q6 prn pain (1-10). * Bowel - senna/colace 1 tablet bid, Magnesium citrate 300mL daily prn. * Adult immunization - Administer pneumonia vaccine, covid vaccine, flu vaccine as appropriate. * DVT prophylaxis - Hold, on dapt. * Hypertension - Metoprolol succinate 50mg daily, Amlodipine 10mg daily. * Iron deficiency anemia - Ferrous sulfate 325mg lunch, Vitamin C 1000mg lunch. * PAOD - Aspirin 81mg qhs, Plavix 75mg daily, consult Abena Fiore for CTA with runoff, possible revascularization, 01/06/2025 JEFFREY doppler showed moderate bilateral lower extremity disease. * Hyperlipidemia - Atorvastatin 20mg qhs, [place] 3 1gm daily. * Hypocalcemia - Calcium 500mg daily. * Osteomyelitis left foot - Cefdinir 300mg bid, Doxycycline 100mg bid, Flagyl 500mg tid thru 04/08/2025, Consult Dr. Mendoza, Consult Dr. Irene for expert care. * Diabetes Mellitus II - A1c 6.1, monitor. * Nutrition - MVI 1 tablet daily. * Diabetic polyneuropathy - Lyrica 100mg tid.
[2025-03-11] MEDS: Atorvastatin Calcium 20 MG Tablet PO (20:31)
[2025-03-11] MEDS: Cefdinir 300 MG Capsule PO (20:31)
[2025-03-11] MEDS: Nystatin Powder 15gm Bottle 1 APPLIC TOPICAL (20:32)
[2025-03-11] MEDS: Aspirin 81 MG TAB.CHEW PO (20:32)
[2025-03-11] MEDS: Doxycycline 100 MG CAPSULE PO (20:32)
[2025-03-11] MEDS: metroNIDAZOLE 500 MG Tablet PO (20:32)
[2025-03-11] MEDS: Pregabalin 50 MG Capsule 100 MG PO (20:32)
[2025-03-11 21:30] LABS: Bedside Glucose 204 mg/dL (74-106)
[2025-03-12] MEDS: metroNIDAZOLE 500 MG Tablet PO ×3 (05:34→21:57)
[2025-03-12] MEDS: Pregabalin 50 MG Capsule 100 MG PO ×3 (05:34→21:56)
[2025-03-12 06:39] LABS: Bedside Glucose 129 mg/dL (74-106)
[2025-03-12 08:14] LABS: Absolute Lymphocyte Count 1.65 X10^3/uL (0.83-4.51); Absolute Neutrophil Count 6.7 X10^3/uL (2.0-7.7); Basophil# 0.07 X10^3/uL; Basophil% 0.7 % (0-1); Eosinophil# 0.28 X10^3/uL; Eosinophils% 2.9 % (0-5); Lymphocyte # 1.65 X10^3/ul (0.83-4.51); Lymphocyte % 16.9 % (19-41); Mean Corpuscular Hgb 28.7 pg (27.0-32.0); Mean Corpuscular Volume 92.4 fL (81-99); Mean Platelet Vol. 11.8 fl (6.2-12.0); Monocyte% 10.2 % (0-10); NRBC Flagged by Analyzer 0 % (0-5); Neutrophil # 6.67 X10^3/uL (2.7-7.7); Neutrophil % 68.3 % (47-70); Platelet Count 175 K/mm3 (150-450); RBC Distribution Width CV 15.8 % (11.6-14.6); RBC Distribution Width SD 51.3 fl (35.1-43.9); Red Blood Count 3.14 M/mm3 (4.2-5.4); White Blood Count 9.8 K/mm3 (4.4-11.0)
[2025-03-12] MEDS: Multivitamins,Therapeutic Tablet 1 TABLET PO (08:25)
[2025-03-12] MEDS: Lactobacillis Acidophilus 1 CAP PO (08:25)
[2025-03-12] MEDS: Calcium (Elemental) 500 MG Tablet PO (08:25)
[2025-03-12] MEDS: Omega-3 Acid Ethyl Esters 1 GM Capsule PO (08:25)
[2025-03-12] MEDS: Clopidogrel Bisulfate 75 MG Tablet PO (08:26)
[2025-03-12] MEDS: Nystatin Powder 15gm Bottle 1 APPLIC TOPICAL ×2 (08:26→21:58)
[2025-03-12] MEDS: Doxycycline 100 MG CAPSULE PO ×2 (08:26→21:56)
[2025-03-12] MEDS: Cefdinir 300 MG Capsule PO ×2 (08:26→21:58)
[2025-03-12 08:33] VITALS: PULSE 55
[2025-03-12 08:50] LABS: Anion Gap 12 (5-15); BUN 50 mg/dL (4-19); BUN/Creat Ratio 33.8 RATIO (10-20); Calcium,Total 8.9 mg/dL (7.6-11.0); Carbon Dioxide 19.8 mmol/L (21.0-32.0); Chloride 110 mmol/L (98-108); Creatinine, Serum 1.48 mg/dL (0.70-1.20); EST Glomerular Filtration Rate 37 (>60); Estimated Creatinine Clearance 34.76 ml/min (50-250); Glucose 137 mg/dL (70-99); Potassium 4.6 mmol/L (3.3-5.1); Sodium Level 141 mmol/L (133-145)
[2025-03-12 09:49] VITALS: BP 102/43; PULSE 55; RESP 16; TEMP 36.5; O2SAT 99
[2025-03-12] MEDS: Tuberculin,Purif.prot.deriv. 50 TU/ML Vial 0.1 ML ID (10:42)
[2025-03-12 11:42] LABS: Bedside Glucose 315 mg/dL (74-106)
--- NOTE | 2025-03-12 11:55 | CASEMGMT ---
Social Work SW met with patient to complete initial assessment. Introduced self and role. Verified/updated contacts. Patient confirmed code status as full code. SW requested pt have sister provide copies of advance directives to place on file. SW educated to [facility] insurance with [employer] 03/17, and insurance is requesting to have DC plans in place. Pt explained she has to return to [facility] to safely DC home alone. See assessment for details. SW will continue to follow for DC planning assistance. Katarina Bunch DEBT AND BUDGET COUNSELOR SHOT LIGHTER
[2025-03-12] MEDS: Ferrous Sulfate 325 MG Tablet PO (12:23)
[2025-03-12] MEDS: Ascorbic Acid 500 MG Tablet 1000 MG PO (12:23)
--- NOTE | 2025-03-12 14:38 | PHA.CONS_ITS ---
Documented by User: Evelin Rosado 03/12/25 15:02 TCU RX Drug Regimen Review Subjective/Objective Subjective/Objective Subjective: TCU Admission. 75 YOF presented to the ER with a fall. Hospitalized for multiple falls 2/2 urinary tract infection, complicated by acute kidney injury, rhabdomyolysis, diabetic foot ulcers, osteomyelitis of left foot, paod. Admitted to TCU with debility for strengthening and rehabilitation. Objective: Allergies Sulfa (Sulfonamide Antibiotics) Allergy (Verified 03/07/25 13:44) Unknown doesn't remember/ allergy noted as a child Current Medications Generic Name Dose Route Start Last Admin Trade Name Freq PRN Reason Stop Dose Admin Acetaminophen 1,000 mg 03/11/25 19:30 Acetaminophen 500 Mg Tablet PO Q6H PRN PRN Pain Score 1-10 Amlodipine Besylate 10 mg 03/12/25 10:00 03/12/25 08:33 Amlodipine 10 Mg Tablet PO Not Given DAILY HADLEY Protocol Ascorbic Acid 1,000 mg 03/12/25 12:00 03/12/25 12:23 Ascorbic Acid 500 Mg Tablet PO 1,000 mg LUNCH HADLEY Administration Aspirin 81 mg 03/11/25 22:00 03/11/25 20:32 Aspirin 81 Mg Tab.Chew PO 81 mg QHS HADLEY Administration Atorvastatin Calcium 20 mg 03/11/25 22:00 03/11/25 20:31 Atorvastatin Calcium 20 Mg Tablet PO 20 mg QHS HADLEY Administration Calcium Carbonate 500 mg 03/12/25 08:00 03/12/25 08:25 Calcium (Elemental) 500 Mg Tablet PO 500 mg DAILYCM HADLEY Administration Cefdinir 300 mg 03/11/25 22:00 03/12/25 08:26 Cefdinir 300 Mg Capsule PO 04/08/25 10:01 300 mg BID HADLEY Administration Clopidogrel Bisulfate 75 mg 03/12/25 10:00 03/12/25 08:26 Clopidogrel Bisulfate 75 Mg Tablet PO 75 mg DAILY HADLEY Administration Doxycycline Monohydrate 100 mg 03/11/25 22:00 03/12/25 08:26 Doxycycline 100 Mg Capsule PO 04/08/25 10:01 100 mg BID HADLEY Administration Ferrous Sulfate 325 mg 03/12/25 12:00 03/12/25 12:23 Ferrous Sulfate 325 Mg Tablet PO 325 mg DAILY@1200 HADLEY Administration Magnesium Citrate 300 ml 03/11/25 19:29 Magnesium Citrate 300 Ml PO DAILY PRN CONSTIPATION Metoprolol Succinate 50 mg 03/12/25 10:00 03/12/25 08:33 Metoprolol(Xl)Succ 50 Mg Tablet PO Not Given DAILY [facility] Protocol Metronidazole 500 mg 03/11/25 22:00 03/12/25 05:34 Metronidazole 500 Mg Tablet PO 04/08/25 14:01 500 mg TID HADLEY Administration Multivitamins 1 tablet 03/12/25 08:00 03/12/25 08:25 Multivitamins,Therapeutic Tablet PO 1 tablet DAILYCM HADLEY Administration Nystatin 1 applic 03/11/25 22:00 03/12/25 08:26 Nystatin Powder 15gm Bottle TOPICAL 1 applic BID HADLEY Administration Protocol [id number] Ethyl Esters 1 gm 03/12/25 10:00 03/12/25 08:25 [place]-3 Acid Ethyl Esters 1 Gm Capsule PO 1 gm DAILY HADLEY Administration Pregabalin 100 mg 03/11/25 22:00 03/12/25 05:34 Pregabalin 50 Mg Capsule PO 100 mg TID HADLEY Administration Senna/Docusate Sodium 1 tablet 03/11/25 22:00 03/12/25 08:26 Senna/Docusate Sodium 1 Tablet PO Not Given BID HADLEY Sodium Chloride 10 - 40 ml 03/11/25 17:33 0.9% Saline Lock 10 Ml Syringe IV UD PRN SALINE FLUSH Tuberculin PPD 0.1 ml 03/19/25 10:00 Tuberculin,Purif.Prot.Deriv. 50 Tu/Ml Vial ID 03/19/25 10:01 X1 ONE Problem List Chronic kidney disease, stage 3b (Acute) Iron deficiency anemia (Acute) Essential (primary) hypertension (Acute) Type 2 diabetes mellitus with hyperglycemia (Acute) PAOD (peripheral arterial occlusive disease) (Acute) Diabetic foot ulcer (Acute) Urinary tract infection (Acute) Multiple falls (Acute) Debility (Acute) Rhabdomyolysis (Acute) SHAYY (acute kidney injury) (Acute) Osteomyelitis of left foot (Chronic) Hyperlipidemia (Chronic) Diabetes mellitus with polyneuropathy (Chronic) Vital Signs Temp Pulse Resp BP Pulse Ox O2 Del Method 97.7 F L 55 L 16 102/43 L 99 Room Air 03/12/25 09:49 03/12/25 09:49 03/12/25 09:49 03/12/25 09:49 03/12/25 09:49 03/12/25 09:49 Oxygen Delivery Method Room Air Weight: 73.652 kg Body Mass Index (BMI) 26.2 Sodium 141 mmol/L (133-145) 03/12/25 07:50 Potassium 4.6 mmol/L (3.3-5.1) 03/12/25 07:50 Chloride 110 mmol/L (98-108) H 03/12/25 07:50 Carbon Dioxide 19.8 mmol/L (21.0-32.0) L 03/12/25 07:50 Anion Gap 12 (5-15) 03/12/25 07:50 BUN 50 mg/dL (4-19) H 03/12/25 07:50 Creatinine 1.48 mg/dL (0.70-1.20) H 03/12/25 07:50 Est GFR (MDRD) Non-Af 37 (>60) L 03/12/25 07:50 BUN/Creatinine Ratio 33.8 RATIO (10-20) H 03/12/25 07:50 Glucose 137 mg/dL (70-99) H 03/12/25 07:50 Assessment/Plan: 1. Pain: acetaminophen 1000mg PO Q6H PRN pain (1-10). Resident has not received any doses of acetaminophen. Continue to monitor for increased pain, LFTs (last 03/08/25), and PRN usage. 2. Bowel: senna/docusate 1T PO BID, magnesium Citrate 300mL PO daily PRN constipation. Resident has had no doses of magnesium citrate. Last documented bowel movement 03/11/25. Continue to monitor for constipation and PRN usage. 3. Hypertension: metoprolol succinate 50mg PO daily, Amlodipine 10mg PO daily (meds not given today). Continue to monitor BP (last 102/43mmHg 03/12/25), swelling, bradyarrhythmias (last HR 55bpm 03/12/25). 4. PAOD: Aspirin 81mg PO QHS, Clopidogrel 75mg PO daily. Continue to monitor for s/sx of bleeding (Hgb 9.0g/dL, Hct 29% 03/12/25). 5. Hyperlipidemia: Atorvastatin 20mg PO QHS, [place] 3 1gm PO daily. Please consider ordering a lipid panel as the last was from 2019. Thanks. LFTs (last 03/08/25) and muscle pain. 6. Iron deficiency anemia: Ferrous sulfate 325mg PO with lunch, Vitamin C 1000mg PO with lunch. Continue to monitor GI upset, constipation, hemoglobin, dark stools, iron studies as clinically indicated. 7. Osteomyelitis: Cefdinir 300mg PO BID, Doxycycline 100mg PO BID, Metronidazole 500mg PO TID. Resident on antibiotics through 04/08/25 per ID. Continue to monitor for NARROW GAUGE OPERATOR effects, renal function, metallic taste, upset stomach, stool discoloration and diarrhea/C. Diff infection. 8. Diabetic polyneuropathy: Pregabalin 100mg PO TID. Continue to monitor for NARROW GAUGE OPERATOR effects, swelling and weight gain. 9. General Wellness: Calcium 500mg PO daily, Multivitamin 1T PO daily. Continue to monitor calcium levels (last 8.9mg/dL 03/12/25) Assessment/Plan for indications treated with psychotropic medications: Resident is not prescribed scheduled or prn psychotropic medications at the time of this drug regimen review. Medical chart and medication regimen reviewed. The following medication irregularities or issues were identified: 1. Atorvastatin 20mg PO QHS. Please consider ordering a lipid panel as the last was from 2019. Thanks. Date Date of Note: 03/12/25 Documented by User: Dr. Phong Al MD 03/12/25 20:49 TCU RX Drug Regimen Review Provider Comments Provider responsibility Provider Comments to Recommendations by Pharmacy Agree
--- NOTE | 2025-03-12 15:25 | WOUNDNOTE ---
wound photo: left lateral foot
--- NOTE | 2025-03-12 15:26 | WOUNDNOTE ---
wound photo: left lower leg
--- NOTE | 2025-03-12 15:26 | WOUNDNOTE ---
wound photo: left medial ankle
--- NOTE | 2025-03-12 15:27 | WOUNDNOTE ---
wound photo: left heel
--- NOTE | 2025-03-12 15:28 | WOUNDNOTE ---
wound photo: right medial lower leg
--- NOTE | 2025-03-12 15:28 | WOUNDNOTE ---
wound photo: right lateral heel
[2025-03-12 16:32] LABS: Bedside Glucose 276 mg/dL (74-106)
[2025-03-12 20:00] VITALS: PULSE 64; O2SAT 97
[2025-03-12 21:54] LABS: Bedside Glucose 220 mg/dL (74-106)
[2025-03-12] MEDS: 0.9% Saline Lock 10 ML Syringe IV (21:55)
[2025-03-12] MEDS: Aspirin 81 MG TAB.CHEW PO (21:57)
[2025-03-12] MEDS: Atorvastatin Calcium 20 MG Tablet PO (21:58)
[2025-03-12] MEDS: Senna/Docusate Sodium 1 Tablet PO (22:00)
[2025-03-13] MEDS: metroNIDAZOLE 500 MG Tablet PO ×3 (05:15→20:24)
[2025-03-13] MEDS: Pregabalin 50 MG Capsule 100 MG PO ×3 (05:15→20:29)
[2025-03-13 06:22] LABS: Bedside Glucose 132 mg/dL (74-106)
[2025-03-13 06:53] LABS: Cholesterol 99 mg/dL (<=200); High Density Lipoprotein 35 mg/dL; Low Density Lipoprotein Calc. 39 mg/dL; Triglycerides 126 mg/dL; Very Low Density Lipoprotein 25 mg/dL (5-40); cholesterol:hdl ratio screen 2.85
--- NOTE | 2025-03-13 07:34 | NURSING ---
Updated Dr. Irene of consult, he stated to continue wound care and he will follow on TCU weekly.
[2025-03-13] MEDS: 0.9% Saline Lock 10 ML Syringe IV ×2 (08:21→20:31)
[2025-03-13] MEDS: Multivitamins,Therapeutic Tablet 1 TABLET PO (08:23)
[2025-03-13] MEDS: Calcium (Elemental) 500 MG Tablet PO (08:24)
[2025-03-13] MEDS: Omega-3 Acid Ethyl Esters 1 GM Capsule PO (08:24)
[2025-03-13] MEDS: Doxycycline 100 MG CAPSULE PO ×2 (08:24→20:25)
[2025-03-13] MEDS: Lactobacillis Acidophilus 1 CAP PO (08:24)
[2025-03-13] MEDS: Nystatin Powder 15gm Bottle 1 APPLIC TOPICAL ×2 (08:25→20:26)
[2025-03-13] MEDS: Senna/Docusate Sodium 1 Tablet PO ×2 (08:32→20:23)
[2025-03-13] MEDS: Clopidogrel Bisulfate 75 MG Tablet PO (08:32)
[2025-03-13] MEDS: Cefdinir 300 MG Capsule PO ×2 (08:32→20:25)
[2025-03-13 08:43] VITALS: BP 139/53; PULSE 56; RESP 18; TEMP 36.9; O2SAT 97
[2025-03-13 11:06] VITALS: BP 113/42; PULSE 54
[2025-03-13 11:09] VITALS: BP 113/42; PULSE 54
[2025-03-13] MEDS: Ascorbic Acid 500 MG Tablet 1000 MG PO (11:19)
[2025-03-13] MEDS: Ferrous Sulfate 325 MG Tablet PO (11:20)
[2025-03-13 11:32] LABS: Bedside Glucose 217 mg/dL (74-106)
--- NOTE | 2025-03-13 12:05 | NURSING ---
Rags Laborer Note; activity Asset: Key Hong is independent in her choice of daily activities. She has a cell phone, watches tv, reads, asked for word search puzzles and welcomes visits from the outside energy sales representatives and therapy dog. She sister and brother will visits and bring her items from home if she needs them. Staff will encourage social activities, remind her of weekly activities and respect her right to say no.
--- NOTE | 2025-03-13 15:14 | CON.PCM.SX_ITS ---
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 Pending these results will plan for intervention. HPI Consult Data Date of Consult: 03/16/25 HPI Narrative Reason for Consultation: BLE wounds HPI Narrative: KIMBERLY NEWMAN, is a 75 F who has bilateral foot wounds in the setting of diabetes and PAD. She presented to [facility] after recurrent falls at home and was diagnosed with SHAYY on CKD, acute rhabdo, and acute UTI; she was discharged to TCU for further rehab on 03/11/25. While inpatient, she had arterial study which revealed moderate disease bilaterally with some element proximal disease; right JEFFREY is 0.73, left JEFFREY is 0.84, right TBI is 0.30, left TBI is 0.21. Plan was for CTA for further evaluation and interventional planning once SHAYY resolved. 03/12/25 GFR 37 and Cr 1.48 which appears to be her baseline. [facility] Medical History MRSA (methicillin resistant staph aureus) culture positive Depression Diabetes Back pain Vertigo History of pain when walking Hypertension Arthritis Wears dentures Post-menopausal Low iron High cholesterol Easy bruising Neuropathy Dietary restriction Former smoker Cardiology follow-up encounter History of torn meniscus of left knee Carotid artery stenosis Essential hypertension Skin lesion Hammer toe of left foot Osteomyelitis Chronic kidney disease, stage 3 Atherosclerosis of coronary artery of [place] heart without angina pectoris Hyperlipidemia Peripheral vascular occlusive disease Hammer toe of second toe of left foot Hallux valgus (acquired), right foot Healed ulcer of left foot on examination Chronic ulcer of left foot with fat layer exposed Delayed wound healing Malnutrition Osteomyelitis of foot 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 Methicillin resistant Staphylococcus aureus infection Chronic osteomyelitis of left foot Non-healing ulcer of right foot DM2 (diabetes mellitus, type 2) Home Medications ?Medication ?Instructions ?Recorded ?Last Taken ?Type aspirin 81 mg tablet,delayed 81 mg PO QHS blood clots 01/13/14 03/10/25 20:55 History release multivitamin with folic acid 400 1 tab PO DAILY Supple ment 01/13/14 11/14/16 History mcg tablet simvastatin 40 mg tablet 40 mg PO QHS cholesterol 08/30/16 History omega-3 fatty acids-fish oil 340 1 ea PO DAILY supplem ent 06/29/16 08/27/16 History mg-1,000 mg capsule ferrous sulfate 325 mg (65 mg 325 mg PO DAILY SUPPLEME NT 08/15/18 03/08/25 History iron) tablet ascorbic acid (vitamin C) 500 mg 1,000 mg PO LUNCH Sup plement 11/25/20 03/11/25 11:50 History tablet calcium carbonate (Calcium 600) 600 mg PO DAILY supple ment 12/29/21 Unknown History docusate sodium 100 mg capsule 100 mg PO BID constipat ion 12/29/21 03/11/25 08:55 History hydrochlorothiazide 25 mg tablet 25 mg PO QAM HEART Unknown History Held on 03/11/25. Instructions: Hold for 1 week until sees Line Installer [employer]rolley cranberry extract 500 mg capsule 500 mg PO DINNER Urin asmita tract 08/08/22 Unknown History clopidogrel 75 mg tablet 75 mg PO DAILY Blood clots # 90 tabs 10/23/24 03/11/25 08:55 Rx metoprolol succinate 50 mg 50 mg PO DAILY BP #90 tabs 10/23/24 03/11/25 08:55 Rx tablet,extended release 24 hr amlodipine 10 mg tablet 10 mg PO DAILY Please hold R X 12/25/24 03/09/25 08:25 Rx until pt calls #90 tabs Lactobacillus acidophilus 600 mg PO QDAY gi 03/07/25 0 03/11/25 09:00 History (Acidophilus capsule) glimepiride 4 mg tablet 4 mg PO DAILY dm 03/07/25 Un known History Held on 03/11/25. Instructions: Hold until her hypoglycemia resolved or may be discontinued because of CKD lisinopril 20 mg tablet 20 mg PO DAILY BP 03/07/25 U nknown History Held on 03/11/25. Instructions: Hold for 1 week until sees Line Installer [employer]rolley pregabalin 100 mg capsule 100 mg PO TID nerve pain 03/11/25 11:50 History acetaminophen 325 mg tablet 650 mg (2 x 325 mg) PO Q4H PRN PRN 03/11/25 03/11/25 08:55 Rx Fever, pain 1-10/10 #0 tabs cefdinir 300 mg capsule 300 mg PO BID UTI #56 caps 0 03/11/25 Unknown Rx doxycycline monohydrate 100 mg 100 mg PO BID UTI 28 da ys #56 caps 03/11/25 Unknown Rx capsule insulin lispro 100 unit/mL See Protocol subcut ACHS DM #0 mL 03/11/25 03/11/25 17:00 Rx subcutaneous pen (Humalog KwikPen (U-100) Insulin) metronidazole 500 mg tablet 500 mg PO TID WOUND 28 day s #84 03/11/25 Unknown Rx tabs Allergy/AdvReac Type Severity Reaction Status Date / Time Sulfa (Sulfonamide Allergy Unknown Verified 03/07/25 13:44 Antibiotics) Family History Father CAD (coronary artery disease) Heart disease Hypertension CVA (cerebral vascular accident) Mother COPD (chronic obstructive pulmonary disease) Hypertension Heart disease Heart failure Surgical History History of repair of left rotator cuff History of total left knee replacement (~2014) History of angioplasty of peripheral vessel (~2012) amputation left toe History of left heart catheterization (~01/20/14) Social History household members: none Smoking Status: Former smoker how long ago did patient quit smokin years ago alcohol intake: never substance use type: does not use caffeine: No Physical Exam Const alert, oriented x3, no apparent distress and healthy appearing General Appearance: cooperative; Negative for combative or lethargic Orientation / Consciousness: awake Exam Limitations: no limitations HEENT Head and Scalp: normocephalic and atraumatic Eyes EOMs intact bilaterally General Eye: normal appearance of both eyes Neck full ROM General: trachea midline Resp normal respiratory effort and no use of accessory muscles Effort and Inspection: Negative for labored, stridor or audible wheezes Cardio regular rate and regular rhythm Skin Wound Narrative: wound dressings C/D/I; reviewed pictures in chart demonstrating R heel wound with overlying eschar, L heel wound with overlying eschar, L lateral foot wound with overlying eschar, and scattered superficial appearing ulcerations to the bilateral shins Neuro oriented x3, CN's II-XII intact bilaterally, no focal motor deficits and no sensory deficits noted Psych thought process normal, cooperative, affect normal, speech normal and activity/motor behavior normal Lab / Micro Data 03/12/25 07:50 03/12/25 07:50 Labs: Laboratory Results - last 24 hr 03/12/25 16:09: POC Glucose 276 H 03/12/25 21:35: POC Glucose 220 H 03/13/25 05:10: Triglycerides 126, Cholesterol 99, LDL Cholesterol, Calc 39, VLDL Cholesterol 25, HDL Cholesterol 35 L, Cholesterol/HDL Ratio 2.85 03/13/25 06:02: POC Glucose 132 H 03/13/25 11:13: POC Glucose 217 H Charges/Coding Visit Charges Inpatient E&M: 42842 SNF Subs L1
--- NOTE | 2025-03-13 15:20 | NURSING ---
Order from Abena Fiore PA-C for CTA abdomen pelvis with lower extremity runoff with contrast. Will need precert. Per PA it can wait until next week, not urgent.
--- NOTE | 2025-03-13 15:50 | CHAPLAIN ---
Type of Pastoral Visit _x__ Initial Visit ___ Follow-up Visit ___ On-call Visit ___ General Patient Visit ___ Spiritual Assessment ___ Family Conference ___ Bereavement ___ Rapid Response ___ Code Blue ___ Other (describe below) Pastoral Care Referral From _x__ Patient ___ Family ___ Nurse ___ Physician ___ Cemetery Vault Installer ___ Supervisor [employer] ___ Other (describe below) Sacrament/Intervention _x__ Active listening ___ Anointing ___ Advent ___ Bereavement ___ Communion ___ Karla exploration ___ _x__ Life review _x__ Prayer ___ Reconciliation ___ Sacrament of Sick _x__ Supportive presence ___ Wedding ___ Other (describe below) Pastoral Comments patient expresses some frustration at having had fallen and now in the hospital or TCU for a couple weeks; pt is anxious to 'get out and walk some more today' and to 'not look at the abraham'; pt is missing her two cats and talks about them; pt has been for 12 years and speaks of the illness and of her as conversation turns to how she brandy through challenges; pt has some family support from siblings; pt welcomes presence and prayer for support
[2025-03-13 16:18] LABS: Bedside Glucose 286 mg/dL (74-106)
[2025-03-13 20:00] VITALS: PULSE 62; O2SAT 98
[2025-03-13] MEDS: Aspirin 81 MG TAB.CHEW PO (20:24)
[2025-03-13] MEDS: Atorvastatin Calcium 20 MG Tablet PO (20:24)
[2025-03-13 21:33] LABS: Bedside Glucose 258 mg/dL (74-106)
[2025-03-14] MEDS: Pregabalin 50 MG Capsule 100 MG PO ×3 (05:12→21:55)
[2025-03-14] MEDS: metroNIDAZOLE 500 MG Tablet PO ×3 (05:12→21:56)
[2025-03-14 07:09] LABS: Bedside Glucose 163 mg/dL (74-106)
[2025-03-14] MEDS: Multivitamins,Therapeutic Tablet 1 TABLET PO (08:00)
[2025-03-14] MEDS: Calcium (Elemental) 500 MG Tablet PO (08:00)
[2025-03-14 08:01] VITALS: PULSE 60
[2025-03-14] MEDS: Lactobacillis Acidophilus 1 CAP PO (08:01)
[2025-03-14] MEDS: amLODIPine 5 MG Tablet PO (08:01)
[2025-03-14] MEDS: Doxycycline 100 MG CAPSULE PO ×2 (08:01→21:56)
[2025-03-14] MEDS: Omega-3 Acid Ethyl Esters 1 GM Capsule PO (08:01)
[2025-03-14] MEDS: Metoprolol(XL)Succ 25 MG Tablet PO (08:01)
[2025-03-14] MEDS: Clopidogrel Bisulfate 75 MG Tablet PO (08:01)
[2025-03-14] MEDS: Cefdinir 300 MG Capsule PO ×2 (08:01→21:57)
[2025-03-14] MEDS: Senna/Docusate Sodium 1 Tablet PO (08:01)
[2025-03-14] MEDS: Nystatin Powder 15gm Bottle 1 APPLIC TOPICAL ×2 (08:02→21:59)
[2025-03-14 09:09] VITALS: BP 116/48; PULSE 60; RESP 16; TEMP 36.5; O2SAT 99
[2025-03-14 11:55] LABS: Bedside Glucose 204 mg/dL (74-106)
[2025-03-14] MEDS: Acetaminophen 500 MG Tablet 1000 MG PO ×2 (12:14→21:58)
[2025-03-14] MEDS: Ferrous Sulfate 325 MG Tablet PO (12:15)
[2025-03-14] MEDS: Ascorbic Acid 500 MG Tablet 1000 MG PO (12:15)
[2025-03-14 16:36] LABS: Bedside Glucose 201 mg/dL (74-106)
[2025-03-14 21:25] LABS: Bedside Glucose 228 mg/dL (74-106)
[2025-03-14] MEDS: Atorvastatin Calcium 20 MG Tablet PO (21:57)
[2025-03-14] MEDS: Aspirin 81 MG TAB.CHEW PO (21:57)
[2025-03-15] MEDS: metroNIDAZOLE 500 MG Tablet PO ×3 (05:25→20:50)
[2025-03-15] MEDS: Pregabalin 50 MG Capsule 100 MG PO ×3 (05:26→20:49)
[2025-03-15 06:25] LABS: Bedside Glucose 161 mg/dL (74-106)
[2025-03-15] MEDS: Calcium (Elemental) 500 MG Tablet PO (08:20)
[2025-03-15] MEDS: Multivitamins,Therapeutic Tablet 1 TABLET PO (08:20)
[2025-03-15] MEDS: Lactobacillis Acidophilus 1 CAP PO (08:20)
[2025-03-15] MEDS: Doxycycline 100 MG CAPSULE PO ×2 (08:21→20:50)
[2025-03-15] MEDS: Nystatin Powder 15gm Bottle 1 APPLIC TOPICAL ×2 (08:21→20:57)
[2025-03-15] MEDS: Omega-3 Acid Ethyl Esters 1 GM Capsule PO (08:21)
[2025-03-15] MEDS: Cefdinir 300 MG Capsule PO ×2 (08:22→20:50)
[2025-03-15 08:23] VITALS: BP 100/42; PULSE 58
[2025-03-15] MEDS: Clopidogrel Bisulfate 75 MG Tablet PO (08:23)
[2025-03-15] MEDS: Acetaminophen 500 MG Tablet 1000 MG PO (08:28)
[2025-03-15 08:29] VITALS: BP 100/42; PULSE 58; RESP 18; TEMP 36.7; O2SAT 99
[2025-03-15] MEDS: Ascorbic Acid 500 MG Tablet 1000 MG PO (11:21)
[2025-03-15] MEDS: Ferrous Sulfate 325 MG Tablet PO (11:21)
[2025-03-15 11:56] LABS: Bedside Glucose 286 mg/dL (74-106)
[2025-03-15] MEDS: 0.9% Saline Lock 10 ML Syringe IV (13:05)
[2025-03-15 13:15] VITALS: PULSE 54; RESP 18; O2SAT 96
[2025-03-15 17:23] LABS: Bedside Glucose 256 mg/dL (74-106)
--- NOTE | 2025-03-15 20:06 | NURSING ---
Blood glucose levels frequently >200, reviewed blood glucose levels and most recent creatinine level with Dr. Al via telephone. On cefdinir, doxy, and flagyl thru 04/08 for osteomyelitis. New order received for Insulin glargine SC 10units BID, order read back and verified.
[2025-03-15] MEDS: Insulin Glargine-YFGN 100 UNIT/ML Pen 10 UNIT SC (20:49)
[2025-03-15] MEDS: Atorvastatin Calcium 20 MG Tablet PO (20:50)
[2025-03-15] MEDS: Aspirin 81 MG TAB.CHEW PO (20:50)
[2025-03-15 21:55] LABS: Bedside Glucose 247 mg/dL (74-106)
[2025-03-16] MEDS: metroNIDAZOLE 500 MG Tablet PO ×3 (05:16→21:51)
[2025-03-16] MEDS: Pregabalin 50 MG Capsule 100 MG PO ×3 (05:16→21:49)
[2025-03-16] MEDS: 0.9% Saline Lock 10 ML Syringe IV ×3 (05:19→21:50)
[2025-03-16 06:14] LABS: Bedside Glucose 120 mg/dL (74-106)
[2025-03-16] MEDS: Multivitamins,Therapeutic Tablet 1 TABLET PO (09:07)
[2025-03-16] MEDS: Doxycycline 100 MG CAPSULE PO ×2 (09:08→21:51)
[2025-03-16] MEDS: Calcium (Elemental) 500 MG Tablet PO (09:08)
[2025-03-16] MEDS: Lactobacillis Acidophilus 1 CAP PO (09:08)
[2025-03-16] MEDS: Insulin Glargine-YFGN 100 UNIT/ML Pen 10 UNIT SC ×2 (09:09→21:53)
[2025-03-16] MEDS: Omega-3 Acid Ethyl Esters 1 GM Capsule PO (09:15)
[2025-03-16] MEDS: Nystatin Powder 15gm Bottle 1 APPLIC TOPICAL ×2 (09:15→21:52)
[2025-03-16] MEDS: amLODIPine 5 MG Tablet PO (09:19)
[2025-03-16] MEDS: Senna/Docusate Sodium 1 Tablet PO ×2 (09:20→21:52)
[2025-03-16] MEDS: Clopidogrel Bisulfate 75 MG Tablet PO (09:20)
[2025-03-16] MEDS: Cefdinir 300 MG Capsule PO ×2 (09:20→21:52)
[2025-03-16 09:22] VITALS: BP 130/51; PULSE 55
[2025-03-16] MEDS: Acetaminophen 500 MG Tablet 1000 MG PO (09:27)
[2025-03-16 09:30] VITALS: BP 130/51; PULSE 55; RESP 16; TEMP 36.9; O2SAT 99
--- NOTE | 2025-03-16 10:52 | NURSING ---
Nupur requesting clinical information for CTA approval. Case #[id number]. Info faxed to [phone].
[2025-03-16] MEDS: Ferrous Sulfate 325 MG Tablet PO (11:04)
[2025-03-16] MEDS: Ascorbic Acid 500 MG Tablet 1000 MG PO (11:04)
[2025-03-16 11:06] VITALS: BP 133/54; PULSE 51
[2025-03-16 11:28] LABS: Bedside Glucose 162 mg/dL (74-106)
--- NOTE | 2025-03-16 15:13 | NURSING ---
Offered covid vaccine, VIS provided. Resident declines.
--- NOTE | 2025-03-16 15:28 | NURSING ---
DRESSINGS CHANGED TO PT SADIE FEET PER ORDER. NEW CLEAN AAKASH WRAPS APPLIED. PT TOLERATED WELL.
[2025-03-16 16:23] LABS: Bedside Glucose 127 mg/dL (74-106)
[2025-03-16 20:00] VITALS: PULSE 56; O2SAT 96
[2025-03-16 21:36] LABS: Bedside Glucose 154 mg/dL (74-106)
[2025-03-16] MEDS: Aspirin 81 MG TAB.CHEW PO (21:51)
[2025-03-16] MEDS: Atorvastatin Calcium 20 MG Tablet PO (21:51)
[2025-03-17] MEDS: Pregabalin 50 MG Capsule 100 MG PO ×3 (05:24→20:29)
[2025-03-17] MEDS: metroNIDAZOLE 500 MG Tablet PO ×3 (05:24→20:30)
--- NOTE | 2025-03-17 06:28 | NURSING ---
Patient AM fasting blood sugar was 64, patient was asymptomatic, OJ given, recheck blood sugar was 103, patient denies any c/o, Dr. Al updated via written communication.
[2025-03-17 07:57] VITALS: BP 115/47; PULSE 54; RESP 16; TEMP 36.3; O2SAT 99
[2025-03-17 07:58] VITALS: PULSE 58; RESP 16; O2SAT 99
[2025-03-17 08:56] VITALS: BP 121/53; PULSE 57; RESP 16; TEMP 36.5; O2SAT 98
[2025-03-17] MEDS: Multivitamins,Therapeutic Tablet 1 TABLET PO (08:58)
[2025-03-17] MEDS: Calcium (Elemental) 500 MG Tablet PO (08:58)
[2025-03-17] MEDS: Omega-3 Acid Ethyl Esters 1 GM Capsule PO (08:59)
[2025-03-17] MEDS: Lactobacillis Acidophilus 1 CAP PO (08:59)
[2025-03-17] MEDS: Nystatin Powder 15gm Bottle 1 APPLIC TOPICAL ×2 (08:59→20:33)
[2025-03-17] MEDS: Doxycycline 100 MG CAPSULE PO ×2 (08:59→20:30)
[2025-03-17] MEDS: Clopidogrel Bisulfate 75 MG Tablet PO (08:59)
[2025-03-17] MEDS: amLODIPine 5 MG Tablet PO (08:59)
[2025-03-17] MEDS: Cefdinir 300 MG Capsule PO ×2 (08:59→20:29)
[2025-03-17] MEDS: Insulin Glargine-YFGN 100 UNIT/ML Pen 10 UNIT SC (09:00)
[2025-03-17 09:04] VITALS: PULSE 57
[2025-03-17] MEDS: Acetaminophen 500 MG Tablet 1000 MG PO (11:17)
--- NOTE | 2025-03-17 11:37 | CASEMGMT ---
Social Work SW completed BIMS () and PHQ-2 () for MDS assessment. Katarina Bunch ORANGE PICKER ENGINEERING EXECUTIVE
[2025-03-17 11:50] LABS: Bedside Glucose 120 mg/dL (74-106)
[2025-03-17] MEDS: Ferrous Sulfate 325 MG Tablet PO (13:00)
[2025-03-17] MEDS: Ascorbic Acid 500 MG Tablet 1000 MG PO (13:00)
[2025-03-17 13:49] VITALS: BMI 26.6
--- NOTE | 2025-03-17 14:20 | CASEMGMT ---
Social Work Insurance issued LCD 03/19, DC 03/20. SW spoke with pt to notify of LCD. SW provided NOMNC to pt and educated to appeal rights. Pt verbalized understanding and denied appeal. Pt is agreeable to DC. Pt is adlib today from therapy to practice being independent in controlled environment. IDT recommending skilled HHC. Pt agreeable. SW provided list of skilled HHC agencies within geographical area, INN with insurance, that include quality and resource data via [employer] guide. Pt to review and notify SW at POC meeting tomorrow of preferences. Pt denied DME needs. Pt's family will transport. Plan: DC home alone 03/20, HHC PT/OT/SN Katarina Bunch TREATMENT MANAGER MARKETING AUTOMATION MANAGER
[2025-03-17 16:34] LABS: Bedside Glucose 101 mg/dL (74-106)
--- NOTE | 2025-03-17 16:52 | NURSING ---
Addendum entered by Siri Ulloa 03/17/25 17:26: New ordered entered by Dr. Al, decreased Metoprolol to 12.5mg PO QD. Original Note: Communication left for Dr. Al. Metoprolol 25mg PO daily held x3 dose d/t decreased HR.
--- NOTE | 2025-03-17 17:21 | CON.PCM_ITS ---
Assessment & Plan Assessment/Plan (1) Dry gangrene: PLAN: Patient was examined evaluated. All findings were discussed with the patient. All questions were answered to the patient satisfaction. The left lower extremity was evaluated and examined and show evidence of dry stable eschars to the left heel and lateral left foot. Eschars were dressed with Betadine soaked gauze dry sterile dressing and light compression wrap with 6 inch Marino bandage. The right lower extremity was left clean dry and intact. Continue dressing changes per wound care nurse. Continue strict blood sugar control. Continue good nutrition. Medicine: On board, medical management, antibiotics per infectious disease Vascular surgery: Will obtain CTA abdominal/pelvis, still pending authorization for insurance. PT/OT: Continue rehab protocol Will plan for surgical intervention as an outpatient vs in TCU once vascular has performed intervention with recommendations. Will plan to follow-up with patient in TCU in 1 week or the patient can follow- up in private office when discharged. Please reach out to Dr. Irene for any question or concerns. Thank you for the consultation! (2) Chronic painful diabetic polyneuropathy: (3) Other specified peripheral vascular diseases: HPI Consult Data Date of Consult: 03/17/25 HPI Narrative Reason for Consultation: Bilateral foot wounds HPI Narrative: KIMBERLY NEWMAN, is a 75 F who presented to [facility] secondary to recent falls at home and then diagnosed with SHAYY on CKD, acute rhabdo, acute UTI with chronic stable foot wound secondary to diabetes neuropathy with PAD. Patient was seen and treated by medicine team and discharged to TCU for further rehab on 03/11/2025. Patient has been getting treatment from medicine team as well as vascular surgery. Podiatry was consulted for wound care and possible surgical intervention. [facility] Medical History (Updated 03/17/25 @ 17:[address] Patel Irene, DPLebron) Chronic painful diabetic polyneuropathy MRSA (methicillin resistant staph aureus) culture positive Depression Diabetes Back pain Vertigo History of pain when walking Hypertension Arthritis Wears dentures Post-menopausal Low iron High cholesterol Easy bruising Neuropathy Dietary restriction Former smoker Cardiology follow-up encounter History of torn meniscus of left knee Carotid artery stenosis Essential hypertension Skin lesion Hammer toe of left foot Osteomyelitis Chronic kidney disease, stage 3 Atherosclerosis of coronary artery of [place] heart without angina pectoris Hyperlipidemia Peripheral vascular occlusive disease Hammer toe of second toe of left foot Hallux valgus (acquired), right foot Healed ulcer of left foot on examination Chronic ulcer of left foot with fat layer exposed Delayed wound healing Malnutrition Osteomyelitis of foot 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 Methicillin resistant Staphylococcus aureus infection Chronic osteomyelitis of left foot Non-healing ulcer of right foot DM2 (diabetes mellitus, type 2) Home Medications ?Medication ?Instructions ?Recorded ?Last Taken ?Type aspirin 81 mg tablet,delayed 81 mg PO QHS blood clots 01/13/14 03/10/25 20:55 History release multivitamin with folic acid 400 1 tab PO DAILY Supple ment 01/13/14 11/14/16 History mcg tablet simvastatin 40 mg tablet 40 mg PO QHS cholesterol 08/30/16 History omega-3 fatty acids-fish oil 340 1 ea PO DAILY supplem ent 06/29/16 08/27/16 History mg-1,000 mg capsule ferrous sulfate 325 mg (65 mg 325 mg PO DAILY SUPPLEME NT 08/15/18 03/08/25 History iron) tablet ascorbic acid (vitamin C) 500 mg 1,000 mg PO LUNCH Sup plement 11/25/20 03/11/25 11:50 History tablet calcium carbonate (Calcium 600) 600 mg PO DAILY supple ment 12/29/21 Unknown History docusate sodium 100 mg capsule 100 mg PO BID constipat ion 12/29/21 03/11/25 08:55 History hydrochlorothiazide 25 mg tablet 25 mg PO QAM HEART Unknown History Held on 03/11/25. Instructions: Hold for 1 week until sees Preformer Impregnated [employer] cranberry extract 500 mg capsule 500 mg PO DINNER Urin asmita tract 08/08/22 Unknown History clopidogrel 75 mg tablet 75 mg PO DAILY Blood clots # 90 tabs 10/23/24 03/11/25 08:55 Rx metoprolol succinate 50 mg 50 mg PO DAILY BP #90 tabs 10/23/24 03/11/25 08:55 Rx tablet,extended release 24 hr amlodipine 10 mg tablet 10 mg PO DAILY Please hold R X 12/25/24 03/09/25 08:25 Rx until pt calls #90 tabs Lactobacillus acidophilus 600 mg PO QDAY gi 03/07/25 0 03/11/25 09:00 History (Acidophilus capsule) glimepiride 4 mg tablet 4 mg PO DAILY dm 03/07/25 Un known History Held on 03/11/25. Instructions: Hold until her hypoglycemia resolved or may be discontinued because of CKD lisinopril 20 mg tablet 20 mg PO DAILY BP 03/07/25 U nknown History Held on 03/11/25. Instructions: Hold for 1 week until sees Preformer [employer] pregabalin 100 mg capsule 100 mg PO TID nerve pain 03/11/25 11:50 History acetaminophen 325 mg tablet 650 mg (2 x 325 mg) PO Q4H PRN PRN 03/11/25 03/11/25 08:55 Rx Fever, pain 1-08/28 #0 tabs cefdinir 300 mg capsule 300 mg PO BID UTI #56 caps 0 03/11/25 Unknown Rx doxycycline monohydrate 100 mg 100 mg PO BID UTI 28 da ys #56 caps 03/11/25 Unknown Rx capsule insulin lispro 100 unit/mL See Protocol subcut ACHS DM #0 mL 03/11/25 03/11/25 17:00 Rx subcutaneous pen (Humalog KwikPen (U-100) Insulin) metronidazole 500 mg tablet 500 mg PO TID WOUND 28 day s #84 03/11/25 Unknown Rx tabs Allergy/AdvReac Type Severity Reaction Status Date / Time Sulfa (Sulfonamide Allergy Unknown Verified 03/07/25 13:44 Antibiotics) Family History Father CAD (coronary artery disease) Heart disease Hypertension CVA (cerebral vascular accident) Mother COPD (chronic obstructive pulmonary disease) Hypertension Heart disease Heart failure Surgical History History of repair of left rotator cuff History of total left knee replacement (~2014) History of angioplasty of peripheral vessel (~2012) amputation left toe History of left heart catheterization (~01/20/14) Social History household members: none Smoking Status: Former smoker how long ago did patient quit smokin years ago alcohol intake: never substance use type: does not use caffeine: No Physical Exam Narrative Vascular: DP and PT pulses are faintly palpable bilateral lower extremity. CFT is brisk. No erythema is appreciated bilateral lower extremity. Skin temperature great is warm to cool from proximal ankles to distal digit bilateral. Neurological: Light touch is intact. Protective station is absent. Dermatological: Dry eschars to the left heel measuring 5.0 x 5.5 x 0.1 cm. Dry eschar to the left lateral foot measuring 2.5 x 2.0 x 0.1 cm. No erythema drainage or sign of infection. Evidence of right heel stable eschar with no sign of infection. Musculoskeletal: Multiple amputations to lesser digits of either lower extremity. No pain to palpation to the left heel and distal lateral left foot. No pain with calf pressure. Const alert, oriented x3 and no apparent distress Lab / Micro Data 03/12/25 07:50 03/12/25 07:50 Labs: Laboratory Results - last 24 hr 03/16/25 21:19: POC Glucose 154 H 03/17/25 11:16: POC Glucose 120 H 03/17/25 16:15: POC Glucose 101
[2025-03-17 20:00] VITALS: PULSE 72; O2SAT 97
[2025-03-17] MEDS: Aspirin 81 MG TAB.CHEW PO (20:30)
[2025-03-17] MEDS: Atorvastatin Calcium 20 MG Tablet PO (20:30)
[2025-03-17] MEDS: Senna/Docusate Sodium 1 Tablet PO (20:31)
[2025-03-17] MEDS: 0.9% Saline Lock 10 ML Syringe IV (20:31)
[2025-03-17 21:11] LABS: Bedside Glucose 129 mg/dL (74-106)
--- NOTE | 2025-03-17 21:12 | DS.PCM_ITS ---
Providers Date of Admission: 03/11/25 Primary Care Physician: Dr. Rishi Vasquez, Consultations 03/11/25 17:34 Consult: Onc/Wound/assistant accounting manager Routine Comment: Reason for Consult:: melissa legs and feet 03/11/25 18:06 Consult: Onc/Wound/assistant accounting manager Routine Comment: Reason for Consult:: vascular ulcers 03/11/25 19:29 Consult: Infectious Disease Routine Consulting Provider: Kwaku Mendoza Reason for Consult: Osteomyelitis left diabetic foot. EMERGENT Consult: No MD Notified: Yes Date Notified: 03/11/25 Time Notified: 19:30 Method of Notification: Text Consult: Podiatry Routine Consulting Provider: Patel Irene Reason for Consult: Osteomyelitis left diabetic foot. EMERGENT Consult: No MD Notified: Yes Date Notified: 03/12/25 Time Notified: 10:11 Method of Notification: Text Consult: Vascular Surgery Routine Consulting Provider: Abena Fiore Reason for Consult: paod, consider intervention. EMERGENT Consult: No MD Notified: Yes Date Notified: 03/12/25 Time Notified: 08:50 Method of Notification: Answering Service Comments:: Spoke with Meka Reason For Visit: ADULT FTT, FALLS, SHAYY, RHABDO, UTI, WOUNDS Diagnosis Discharge Diagnosis (1) Dry gangrene: Status: Acute Code(s): I96 - Gangrene, not elsewhere classified (2) Chronic painful diabetic polyneuropathy: Status: Acute Code(s): E11.42 - Type 2 diabetes mellitus with diabetic polyneuropathy (3) Other specified peripheral vascular diseases: Status: Acute Code(s): I73.89 - Other specified peripheral vascular diseases Plan 75 year old female with below past medical history hospitalized for multiple falls 2/2 urinary tract infection, complicated by acute kidney injury, rhabdomyolysis, diabetic foot ulcers, osteomyelitis of left foot, paod, admitted to TCU with debility, here for rehabilitation, strengthening, prior to discharge home alone. * Debility - PT/OT. * Pain - Tylenol 1000mg q6 prn pain (1-10). * Bowel - senna/colace 1 tablet bid, Magnesium citrate 300mL daily prn. * Adult immunization - Administer pneumonia vaccine, covid vaccine, flu vaccine as appropriate. * DVT prophylaxis - Hold, on dapt. * Hypertension - Metoprolol succinate 50mg daily, Amlodipine 10mg daily. * Iron deficiency anemia - Ferrous sulfate 325mg lunch, Vitamin C 1000mg lunch. * PAOD - Aspirin 81mg qhs, Plavix 75mg daily, consult Abena Fiore for CTA with runoff, possible revascularization, 01/06/2025 JEFFREY doppler showed moderate bilateral lower extremity disease. * Hyperlipidemia - Atorvastatin 20mg qhs, [employer] 3 1gm daily. * Hypocalcemia - Calcium 500mg daily. * Osteomyelitis left foot - Cefdinir 300mg bid, Doxycycline 100mg bid, Flagyl 500mg tid thru 04/08/2025, Consult Dr. Mendoza, Consult Dr. Irene for expert care. * Diabetes Mellitus II - A1c 6.1, monitor. * Nutrition - MVI 1 tablet daily. * Diabetic polyneuropathy - Lyrica 100mg tid. Medications at Discharge Home Medications aspirin 81 mg tablet,delayed release 81 mg PO QHS blood clots 01/13/14 multivitamin with folic acid 400 mcg tablet 1 tab PO DAILY Supplement 01/13/14 simvastatin 40 mg tablet 40 mg PO QHS cholesterol 05/31/16 omega-3 fatty acids-fish oil 340 mg-1,000 mg capsule 1 ea PO DAILY supplement 06/29/16 ferrous sulfate 325 mg (65 mg iron) tablet 325 mg PO DAILY SUPPLEMENT 08/15/18 ascorbic acid (vitamin C) 500 mg tablet 1,000 mg PO LUNCH Supplement 11/25/20 calcium carbonate (Calcium 600) 600 mg PO DAILY supplement 12/29/21 docusate sodium 100 mg capsule 100 mg PO BID constipation 12/29/21 cranberry extract 500 mg capsule 500 mg PO DINNER Urinary tract 08/08/22 clopidogrel 75 mg tablet 75 mg PO DAILY Blood clots #90 tabs 10/23/24 Lactobacillus acidophilus (Acidophilus capsule) 600 mg PO QDAY gi 03/07/25 glimepiride 4 mg tablet 4 mg PO DAILY dm 03/07/25 pregabalin 100 mg capsule 100 mg PO TID nerve pain 03/07/25 acetaminophen 500 mg tablet 1,000 mg (2 x 500 mg) PO Q6H PRN PRN Pain Score 1-10 #0 tabs 03/17/25 amlodipine 5 mg tablet 5 mg PO DAILY 30 days #30 tabs 03/17/25 cefdinir 300 mg capsule 300 mg PO BID 19 days #38 caps 03/17/25 doxycycline monohydrate 100 mg capsule 100 mg PO BID 19 days #38 caps 03/17/25 metoprolol succinate 25 mg tablet,extended release 24 hr 12.5 mg (1/2 x 25 mg) PO DAILY 30 days #15 tabs 03/17/25 metronidazole 500 mg tablet 500 mg PO TID 19 days #57 tabs 03/17/25 nystatin 100,000 unit/gram topical powder (Nyamyc) 1 applic topical BID 30 days #60 grams 03/17/25 Hospital Course Operations None Procedures None Summary of Care Provided Minutes Spent on Discharge: 35 Hospital Course: 75 year old female with below past medical history hospitalized for multiple falls 2/2 urinary tract infection, complicated by acute kidney injury, rhabdomyolysis, diabetic foot ulcers, osteomyelitis of left foot, paod, admitted to TCU with debility, here for rehabilitation, strengthening, prior to discharge home alone. 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 Pending these results will plan for intervention. 03/17/2025 Patel Irene (Podiatry): (1) Dry gangrene: PLAN: Patient was examined evaluated. All findings were discussed with the patient. All questions were answered to the patient satisfaction. The left lower extremity was evaluated and examined and show evidence of dry stable eschars to the left heel and lateral left foot. Eschars were dressed with Betadine soaked gauze dry sterile dressing and light compression wrap with 6 inch Marino bandage. The right lower extremity was left clean dry and intact. Continue dressing changes per wound care nurse. Continue strict blood sugar control. Continue good nutrition. Medicine: On board, medical management, antibiotics per infectious disease Vascular surgery: Will obtain CTA abdominal/pelvis, still pending authorization for insurance. PT/OT: Continue rehab protocol Will plan for surgical intervention as an outpatient vs in TCU once vascular has performed intervention with recommendations. Will plan to follow-up with patient in TCU in 1 week or the patient can follow- up in private office when discharged. Discharge home 03/20/2025, [facility] PT/OT/SN. Physical Exam Const alert General Appearance: cooperative HEENT normocephalic Eyes PERRL and EOMs intact bilaterally Neck supple, no JVD and no carotid bruits Resp normal respiratory effort, normal air movement and clear to auscultation bilaterally Cardio regular rate and regular rhythm GI normal to inspection, nondistended, normoactive bowel sounds, non-tender and non-distended Extremity normal capillary refill Extremity Narrative: bilateral lower extremities dressed. General Extremity: Negative for edema Skin no rashes or lesions noted General Skin Exam: no breakdown Psych affect normal Appearance: appropriate Weight / BMI Weight Weight: 75.07 kg Body Mass Index (BMI) 26.6 ABG / Lab / Microbiology Data 03/12/25 07:50 03/12/25 07:50 Laboratory: Laboratory Results - last 24 hr 03/16/25 21:19: POC Glucose 154 H 03/17/25 11:16: POC Glucose 120 H 03/17/25 16:15: POC Glucose 101 03/17/25 20:52: POC Glucose 129 H D/C Instructions Discharge Diet: No restrictions Discharge Activity: Return to Normal Activity, May Shower and Use Walker Weight Bearing Status: Weight bearing as tolerated Call your doctor if you observe: Fever of 101 or Higher, Inability to urinate, Inability to have a bowel movement, Shortness of breath, Dizziness, Fainting spells, Swelling in the ankles, Chest pain and Uncontrolled pain DC O2, CPAP, BIPAP Needs Home O2 Discharge instructions: No Additional Instructions: Discharge home 03/20/2025, [facility] PT/OT/SN. Please Follow Up With: Russell Clement MD When: As scheduled. Meaningful Use Info Meaningful Use Meaningful Use Diagnoses (Choose all that apply): None applicable Ischemic Stroke Statin Dosing Therapy Reference: STATIN DOSE THERAPY REFERENCE: * Patients > 75 years receive moderate or high dose statin therapy. * Patients 75 years or YOUNGER should receive HIGH intensity statin dose unless contraindicated. You will be required to document reason for non-treatment if statin daily dose does not meet guidelines. HIGH DOSE STATIN THERAPY DAILY Atorvastatin > than or = to 40 mg Rosuvastatin > than or = to 20 mg Amlodipine + Atorvastatin > than or = to 2.5/40 mg Ezetimibe + Simvastatin 10/80 mg Simvastatin 80mg Discharge Plan Admission Admit Date/Time: 03/11/25 17:26 Primary Reason for Your Visit: Debility. Attending Provider: Phong Al Chi Primary Care Provider: Rishi Vasquez Consulting Providers: Kwaku Mendoza; Patel Irene; Abena Fiore Instructions Additional Instructions / Restrictions: Discharge home 03/20/2025, [facility] PT/OT/SN. Discharge Orders/Prescriptions Prescriptions: New acetaminophen 500 mg Tablet 1,000 mg PO Q6H PRN PRN (Reason: Pain Score 1-10) Qty: 0 0RF metronidazole 500 mg Tablet 500 mg PO TID 19 Days Qty: 57 0RF amlodipine 5 mg Tablet 5 mg PO DAILY 30 Days Qty: 30 0RF doxycycline monohydrate 100 mg Capsule 100 mg PO BID 19 Days Qty: 38 0RF metoprolol succinate 25 mg Tablet Extended Release 24 Hr 12.5 mg PO DAILY 30 Days Qty: 15 0RF nystatin [Nyamyc] 100,000 unit/gram Powder 1 applic topical BID 30 Days Qty: 60 0RF Protocol: *Topical Application Instructions APPLICATION INSTRUCTIONS: apply to abdominal folds, under breasts cefdinir 300 mg Capsule 300 mg PO BID 19 Days Qty: 38 0RF Continued calcium carbonate [Calcium 600] 600 mg calcium (1,500 mg) tablet 600 mg PO DAILY docusate sodium 100 mg capsule 100 mg PO BID aspirin 81 MG tablet 81 mg PO QHS Patient Comments: Per pt, Dr Yoo has instructed pt to continue Aspirin and clopidogrel thru surgery on [id number] multivitamin with folic acid 1 TABLET tablet 1 tab PO DAILY Patient Comments: vitamin supplement ascorbic acid (vitamin C) 500 mg tablet 1,000 mg PO LUNCH Patient Comments: supplement omega-3 fatty acids-fish oil 1 EACH capsule 1 ea PO DAILY Patient Comments: supplement cranberry extract 500 mg capsule 500 mg PO DINNER Patient Comments: supplement ferrous sulfate 325 MG tablet 325 mg PO DAILY glimepiride 4 mg tablet 4 mg PO DAILY pregabalin 100 mg capsule 100 mg PO TID Acidophilus Capsule 600 mg PO QDAY simvastatin 40 MG tablet 40 mg PO QHS Patient Comments: lowers cholesterol clopidogrel 75 mg tablet 75 mg PO DAILY Qty: 90 3RF Patient Comments: ask about stopping Discontinued hydrochlorothiazide 25 mg tablet 25 mg PO QAM lisinopril 20 mg tablet 20 mg PO DAILY acetaminophen 325 mg Tablet 650 mg PO Q4H PRN PRN (Reason: Fever, pain 1-10/10) Qty: 0 0RF insulin lispro [Humalog KwikPen Insulin] 100 unit/mL Insulin Pen See Protocol subcut ACHS Qty: 0 0RF Protocol: 3. Sliding Scale Insulin Med Dosing Condition: 150-189 mg/dl = 1 unit Condition: 190-229 mg/dl = 2 units Condition: 230-269 mg/dl = 3 units Condition: 270-309 mg/dl = 4 units Condition: 310-349 mg/dl = 5 units Condition: 350-399 mg/dl = 6 units Condition: 400-449 mg/dl = 7 units Condition: Greater than 449 call physician Protocol Text: - Use for Total Daily Dose of Insulin 37-55 units - Obsese, infected, or steroid patients MEDIUM DOSING ALGORITHIM doxycycline monohydrate 100 mg Capsule 100 mg PO BID 28 Days Qty: 56 0RF cefdinir 300 mg capsule 300 mg PO BID Qty: 56 0RF metronidazole 500 mg tablet 500 mg PO TID 28 Days Qty: 84 0RF metoprolol succinate 50 mg tablet extended release 24 hr 50 mg PO DAILY Qty: 90 3RF amlodipine 10 mg tablet 10 mg PO DAILY Qty: 90 3RF Referrals / Follow Up: Rishi Vasquez DO [Primary Care Provider] - Patel Irene DPM [Med Staff - Active Staff] - Within 2 Weeks Abena Fiore PA [Med Staff - Adv Practice Prof] - Within 2 Weeks Disposition Disposition (needs filled in before D/C Order can be placed): Home Health Service
[2025-03-18] MEDS: metroNIDAZOLE 500 MG Tablet PO ×3 (05:39→21:00)
[2025-03-18] MEDS: Pregabalin 50 MG Capsule 100 MG PO ×3 (05:39→21:00)
[2025-03-18 06:36] LABS: Bedside Glucose 89 mg/dL (74-106)
[2025-03-18] MEDS: Multivitamins,Therapeutic Tablet 1 TABLET PO (08:02)
[2025-03-18] MEDS: Clopidogrel Bisulfate 75 MG Tablet PO (08:02)
[2025-03-18] MEDS: Senna/Docusate Sodium 1 Tablet PO (08:02)
[2025-03-18 08:03] VITALS: PULSE 59
[2025-03-18] MEDS: Cefdinir 300 MG Capsule PO ×2 (08:03→21:00)
[2025-03-18] MEDS: Metoprolol(XL)Succ 25 MG Tablet 12.5 MG PO (08:03)
[2025-03-18] MEDS: Doxycycline 100 MG CAPSULE PO ×2 (08:03→21:00)
[2025-03-18] MEDS: Lactobacillis Acidophilus 1 CAP PO (08:03)
[2025-03-18] MEDS: Omega-3 Acid Ethyl Esters 1 GM Capsule PO (08:03)
[2025-03-18] MEDS: amLODIPine 5 MG Tablet PO (08:03)
[2025-03-18] MEDS: Calcium (Elemental) 500 MG Tablet PO (08:03)
[2025-03-18] MEDS: Nystatin Powder 15gm Bottle 1 APPLIC TOPICAL ×2 (08:04→21:04)
--- NOTE | 2025-03-18 08:30 | NURSING ---
Debone Supervisor Note; MDS for 03/18/2025 Complete
--- NOTE | 2025-03-18 08:37 | NURSING ---
Addendum entered by Ingrid Rodriguez 03/19/25 07:55: Received auth for CTA, order faxed to [place]. Original Note: Called to check on status of CTA, still in review at this time. Dr. Irene asked about status yesterday, secure text sent to him to let him know.
[2025-03-18 09:32] VITALS: BP 116/46; PULSE 59; RESP 17; TEMP 37.1; O2SAT 98
[2025-03-18] MEDS: Acetaminophen 500 MG Tablet 1000 MG PO (09:38)
--- NOTE | 2025-03-18 09:42 | CASEMGMT ---
Social Work IDT met with patient and sister for care plan meeting. Discussed patient's progress in PT/OT/SN. Recapped that insurance issued DC for 03/20. Sister can transport. Pt agreed to [facility] PT/OT/SN. SW inquired about AOC. 1 - [facility], 2 - [facility], 3 - [facility]. SW educated [facility] agency will contact pt for SOC date date, but typically 2-3 days after DC, pending PCP signing orders. No other issues noted. - GEMA phoned referral to [facility]. Katarina Bunch MSW [employer]
[2025-03-18 11:43] LABS: Bedside Glucose 235 mg/dL (74-106)
[2025-03-18] MEDS: Ascorbic Acid 500 MG Tablet 1000 MG PO (12:28)
[2025-03-18] MEDS: Ferrous Sulfate 325 MG Tablet PO (12:28)
--- NOTE | 2025-03-18 15:58 | WOUNDNOTE ---
wound photo: right medial lower leg
--- NOTE | 2025-03-18 15:59 | WOUNDNOTE ---
wound photo: right lateral heel
--- NOTE | 2025-03-18 15:59 | WOUNDNOTE ---
wound photo: left medial lower leg
--- NOTE | 2025-03-18 16:00 | WOUNDNOTE ---
wound photo: left heel
--- NOTE | 2025-03-18 16:03 | WOUNDNOTE ---
wound photo: right great toe
[2025-03-18 16:48] LABS: Bedside Glucose 205 mg/dL (74-106)
[2025-03-18] MEDS: 0.9% Saline Lock 10 ML Syringe IV (21:00)
[2025-03-18] MEDS: Atorvastatin Calcium 20 MG Tablet PO (21:00)
[2025-03-18] MEDS: Aspirin 81 MG TAB.CHEW PO (21:00)
[2025-03-18 21:40] LABS: Bedside Glucose 158 mg/dL (74-106)
[2025-03-19] VITALS (9 sets, daily range): BP systolic 120–145; BP diastolic 47–57; PULSE 48–60; RESP 16–21; TEMP 35.9–37.2; O2SAT 97–99; BMI 26.4
[2025-03-19] MEDS: Pregabalin 50 MG Capsule 100 MG PO ×3 (05:37→20:51)
[2025-03-19] MEDS: metroNIDAZOLE 500 MG Tablet PO ×3 (05:37→20:52)
[2025-03-19 05:42] LABS: Absolute Lymphocyte Count 1.25 X10^3/uL (0.83-4.51); Absolute Neutrophil Count 3.5 X10^3/uL (2.0-7.7); Basophil# 0.08 X10^3/uL; Basophil% 1.4 % (0-1); Eosinophils% 3.5 % (0-5); Hematocrit 24.1 % (37-47); Hemoglobin 7.6 g/dL (12.0-15.0); Lymphocyte # 1.25 X10^3/ul (0.83-4.51); Mean Corp Hgb Conc 31.5 g/dL (32-36); Mean Corpuscular Hgb 29.1 pg (27.0-32.0); Mean Corpuscular Volume 92.3 fL (81-99); Mean Platelet Vol. 11.7 fl (6.2-12.0); Monocyte# 0.63 X10^3/uL; Monocyte% 11.1 % (0-10); NRBC Flagged by Analyzer 0 % (0-5); Neutrophil % 61.6 % (47-70); Platelet Count 159 K/mm3 (150-450); RBC Distribution Width CV 16.2 % (11.6-14.6); RBC Distribution Width SD 52.6 fl (35.1-43.9); Red Blood Count 2.61 M/mm3 (4.2-5.4); White Blood Count 5.7 K/mm3 (4.4-11.0)
[2025-03-19 06:17] LABS: Anion Gap 8 (5-15); BUN 33 mg/dL (4-19); BUN/Creat Ratio 22.6 RATIO (10-20); Calcium,Total 8.6 mg/dL (7.6-11.0); Carbon Dioxide 22.1 mmol/L (21.0-32.0); Chloride 112 mmol/L (98-108); Creatinine, Serum 1.47 mg/dL (0.70-1.20); EST Glomerular Filtration Rate 37 (>60); Glucose 111 mg/dL (70-99); Potassium 4.2 mmol/L (3.3-5.1); Sodium Level 142 mmol/L (133-145)
[2025-03-19 07:45] LABS: Bedside Glucose 106 mg/dL (74-106)
--- NOTE | 2025-03-19 07:56 | NUR.TO.PHY ---
Order for 2 units of blood, will go to infusion center today when blood ready.
[2025-03-19] MEDS: Multivitamins,Therapeutic Tablet 1 TABLET PO (08:04)
[2025-03-19] MEDS: Calcium (Elemental) 500 MG Tablet PO (08:06)
[2025-03-19] MEDS: Lactobacillis Acidophilus 1 CAP PO (08:07)
[2025-03-19] MEDS: Omega-3 Acid Ethyl Esters 1 GM Capsule PO (08:08)
[2025-03-19] MEDS: Doxycycline 100 MG CAPSULE PO ×2 (08:08→20:52)
[2025-03-19] MEDS: Nystatin Powder 15gm Bottle 1 APPLIC TOPICAL ×2 (08:08→20:52)
[2025-03-19] MEDS: amLODIPine 5 MG Tablet PO (08:11)
[2025-03-19] MEDS: Cefdinir 300 MG Capsule PO ×2 (08:13→20:52)
[2025-03-19] MEDS: Clopidogrel Bisulfate 75 MG Tablet PO (08:13)
[2025-03-19] MEDS: Senna/Docusate Sodium 1 Tablet PO (08:14)
[2025-03-19] MEDS: 0.9% Normal Saline (500mL Bag) 500 ML IV (08:23)
--- NOTE | 2025-03-19 09:23 | NURSING ---
Addendum entered by Heron Terry 03/19/25 15:02: Pt. returned to floor via WC, assisted by TCU staff. Original Note: Pt. left floor via WC, assisted by TCU staff. Pt. going to radiology for CTA, then to infusion center for blood transfusion.
[2025-03-19] MEDS: 0.9% Saline Lock 10 ML Syringe IV (10:13)
[2025-03-19] MEDS: Ferrous Sulfate 325 MG Tablet PO (11:22)
[2025-03-19] MEDS: Ascorbic Acid 500 MG Tablet 1000 MG PO (11:22)
[2025-03-19 11:56] LABS: Bedside Glucose 177 mg/dL (74-106)
[2025-03-19] MEDS: Acetaminophen 500 MG Tablet 1000 MG PO (15:13)
[2025-03-19 15:20] LABS: Bedside Glucose 64 mg/dL (74-106)
[2025-03-19 15:20] LABS: Bedside Glucose 103 mg/dL (74-106)
[2025-03-19 16:49] LABS: Bedside Glucose 238 mg/dL (74-106)
[2025-03-19 20:39] LABS: Bedside Glucose 330 mg/dL (74-106)
[2025-03-19] MEDS: Aspirin 81 MG TAB.CHEW PO (20:52)
[2025-03-19] MEDS: Atorvastatin Calcium 20 MG Tablet PO (20:52)
[2025-03-19 21:58] LABS: Bedside Glucose 230 mg/dL (74-106)
[2025-03-20] MEDS: Pregabalin 50 MG Capsule 100 MG PO (05:23)
[2025-03-20] MEDS: metroNIDAZOLE 500 MG Tablet PO (05:23)
[2025-03-20 06:27] LABS: Bedside Glucose 155 mg/dL (74-106)
[2025-03-20] MEDS: Calcium (Elemental) 500 MG Tablet PO (08:19)
[2025-03-20] MEDS: Lactobacillis Acidophilus 1 CAP PO (08:19)
[2025-03-20] MEDS: Multivitamins,Therapeutic Tablet 1 TABLET PO (08:19)
[2025-03-20] MEDS: Omega-3 Acid Ethyl Esters 1 GM Capsule PO (08:20)
[2025-03-20] MEDS: Nystatin Powder 15gm Bottle 1 APPLIC TOPICAL (08:20)
[2025-03-20] MEDS: Doxycycline 100 MG CAPSULE PO (08:20)
[2025-03-20] MEDS: Clopidogrel Bisulfate 75 MG Tablet PO (08:22)
[2025-03-20] MEDS: Cefdinir 300 MG Capsule PO (08:22)
[2025-03-20] MEDS: Senna/Docusate Sodium 1 Tablet PO (08:23)
[2025-03-20 08:24] VITALS: BP 142/57; PULSE 52
[2025-03-20 08:28] VITALS: BP 142/57; PULSE 52; RESP 18; TEMP 37.2; O2SAT 97
--- NOTE | 2025-03-20 09:33 | NURSING ---
THIS NURSE CHANGED PATIENTS WOUND DRESSING PER ORDER.
[2025-03-20] MEDS: Ferrous Sulfate 325 MG Tablet PO (11:05)
[2025-03-20] MEDS: Ascorbic Acid 500 MG Tablet 1000 MG PO (11:05)
--- NOTE | 2025-03-23 10:44 | MDS.RN ---
Information for the MDS was obtained from review of the clinical record, interview of resident, staff, and direct observation of resident?s care.
== END 2025-03-20 11:35 | disposition home health service (06) | DRG 638 ==
PROVIDERS: Admitting Provider Family Medicine Geriatric Medicine; PCP Student in an Organized Health Care Education/Training Program; Referring Provider Family Medicine Geriatric Medicine; Visit Provider Family Medicine Geriatric Medicine
DX: E11.621 Type 2 diabetes mellitus with foot ulcer (principal); M86.8X7 Other osteomyelitis, ankle and foot; I70.263 Atherosclerosis of native arteries of extremities with gangrene, bilateral legs; M62.82 Rhabdomyolysis; L97.221 Non-pressure chronic ulcer of left calf limited to breakdown of skin; E11.52 Type 2 diabetes mellitus with diabetic peripheral angiopathy with gangrene; N39.0 Urinary tract infection, site not specified; D50.9 Iron deficiency anemia, unspecified; E11.22 Type 2 diabetes mellitus with diabetic chronic kidney disease; B95.62 Methicillin resistant Staphylococcus aureus infection as the cause of diseases classified elsewhere; N18.32 Chronic kidney disease, stage 3b; I12.9 Hypertensive chronic kidney disease with stage 1 through stage 4 chronic kidney disease, or unspecified chronic kidney disease; E11.42 Type 2 diabetes mellitus with diabetic polyneuropathy; L97.519 Non-pressure chronic ulcer of other part of right foot with unspecified severity; E11.65 Type 2 diabetes mellitus with hyperglycemia; E78.00 Pure hypercholesterolemia, unspecified; E11.69 Type 2 diabetes mellitus with other specified complication; I25.10 Atherosclerotic heart disease of native coronary artery without angina pectoris; L97.529 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 foot with unspecified severity; Z79.82 Long term (current) use of aspirin; Z87.891 Personal history of nicotine dependence; R29.6 Repeated falls; Z79.899 Other long term (current) drug therapy; Z79.02 Long term (current) use of antithrombotics/antiplatelets; Z79.84 Long term (current) use of oral hypoglycemic drugs
CPT/HCPCS: 36415; 36430; 80048; 80061; 82274; 82962; 85025; 86850; 86900; 86901; 97110; 97116; 97162; 97166; 97530; 97535; 97802; P9016; A4216

== ENCOUNTER 2025-03-19 06:48 | Outpatient (RCR) | payer SELFPAY | END 2025-04-18 23:59 | LOC: CR 06:48 | PROVIDERS: PCP Student in an Organized Health Care Education/Training Program; Referring Provider Student in an Organized Health Care Education/Training Program; Visit Provider Student in an Organized Health Care Education/Training Program | DX: S91.309A Unspecified open wound, unspecified foot, initial encounter (principal) ==

== ENCOUNTER → 2025-03-19 | Outpatient (CLI) | payer MEDICARE, SELFPAY ==
--- NOTE | 2025-03-19 10:00 | CT_ITS ---
PROCEDURE: CTA ABD W/RUNOFF W/WO CONTRAST 03/19/2025 REASON FOR EXAM: DISORDER OF ARTERIES AND ARTERIOLES, UNSPECIFIED TECHNIQUE: CTA imaging of the abdomen and pelvis with intravenous contrast. Multiplanar and multisequence images were obtained. CONTRAST: 100 cc Isovue 370 One or more dose reduction techniques were used (e.g., Automated exposure control, adjustment of the mA and/or kV according to patient size, use of iterative reconstruction technique). RADIATION DOSE SUMMARY: DLP: 1502.3 MGycm COMPARISON: None FINDINGS: Lung bases: There is a 0.5 cm solid nodule in the right middle lobe, image 4/364. The aortic root is dilated to 4.1 cm in AP diameter. Cardiac calcifications are visible. Abdomen: There are stones in the dependent portion of the gallbladder with the largest measuring 1.6 cm. There is no visible gallbladder wall thickening or pericholecystic inflammation. The liver, spleen, pancreas, adrenals, and left kidney are grossly unremarkable. There is a 0.4 cm nonobstructing stone in the lower pole of the right kidney. There is a moderate stool load. The small-bowel loops are nondistended. The appendix is normal in appearance. There is no pathologic adenopathy by size criteria. Pelvis: There is no pelvic mass or free fluid. Aorta: The abdominal aorta measures 2.5 cm at the diaphragmatic hiatus, 1.7 cm above the iliac bifurcation with no aneurysm. Iliac Arteries: There is heavily calcified plaque and soft plaque at the proximal portions of the right and left external iliac and throughout its course with multiple areas of high-grade stenosis. There is high-grade stenosis in the internal iliac on the right and left. Celiac: With heavily calcified plaque which obscures the lumen. SMA: There is soft and hard plaque which obscures the lumen at the origin of the superior mesenteric artery with heavily calcified plaque throughout the proximal portions. KAEL : The origin of the inferior mesenteric appears patent with heavily calcified plaque noted in the proximal aspect. Right and left renal: There are high-grade stenosis at the origin of the right and left renal arteries with heavily calcified plaque and soft plaque visible. Right and left lower extremity: There is extensive calcified plaque which obscures the lumen of the right and left common femoral and superficial femoral with multilevel high-grade stenosis without evidence of occlusion to the level of the popliteal. The right and left popliteal show heavily calcified plaque and a narrowed lumen with patency demonstrated to the trifurcation on the right and left. There is minimal flow visible in the distal calf and at the ankle Other Findings: Circumferential soft tissue edema is noted in the right and left distal calf and at the ankle and foot, which can indicate venous stasis. CT/CTA Abd w/Runoff W/WO Contrast IMPRESSION: There is a 0.5 cm solid nodule in the right middle lobe, image 4/364. Chest CT correlation is recommended. The aortic root is dilated to 4.1 cm in AP diameter. Follow-up is recommended. There is a 0.4 cm nonobstructing stone in the lower pole of the right kidney. Cholelithiasis. Severe vascular disease throughout the abdomen and right and left lower extremi ty. Interventional angiographic correlation is recommended as clinically indicated. Reading Location: [facility]
== END | disposition home or self-care (01) ==
PROVIDERS: PCP Student in an Organized Health Care Education/Training Program; Referring Provider Family Medicine Geriatric Medicine; Visit Provider Family Medicine Geriatric Medicine
DX: I70.263 Atherosclerosis of native arteries of extremities with gangrene, bilateral legs (principal)
CPT/HCPCS: 75635; Q9967

== ENCOUNTER 2025-04-15 10:51 | Day surgery (SDC) | payer MEDICARE, SELFPAY ==
[2025-04-14 07:25] VITALS: BMI 26.4
[2025-04-15 11:29] LABS: Hematocrit 38.4 % (37-47); Hemoglobin 12.2 g/dL (12.0-15.0); Mean Corp Hgb Conc 31.8 g/dL (32-36); Mean Corpuscular Hgb 29.5 pg (27.0-32.0); Mean Corpuscular Volume 92.8 fL (81-99); Mean Platelet Vol. 11.4 fl (6.2-12.0); Platelet Count 205 K/mm3 (150-450); RBC Distribution Width CV 15.8 % (11.6-14.6); RBC Distribution Width SD 53.9 fl (35.1-43.9); Red Blood Count 4.14 M/mm3 (4.2-5.4); White Blood Count 7.7 K/mm3 (4.4-11.0)
[2025-04-15 12:07] LABS: Anion Gap 13 (5-15); BUN 36 mg/dL (4-19); BUN/Creat Ratio 33.4 RATIO (10-20); Calcium,Total 9.3 mg/dL (7.6-11.0); Carbon Dioxide 21.9 mmol/L (21.0-32.0); Chloride 106 mmol/L (98-108); Creatinine, Serum 1.07 mg/dL (0.70-1.20); EST Glomerular Filtration Rate 55 (>60); Glucose 152 mg/dL (70-99); Potassium 4.9 mmol/L (3.3-5.1); Sodium Level 140 mmol/L (133-145)
--- NOTE | 2025-04-15 16:38 | OP.PCM_ITS ---
Operative Report (Standard) Operative Information Date of Procedure: 04/15/25 Pre-Operative Diagnosis: Atherosclerosis with gangrene of the bilateral lower extremities Post-Operative Diagnosis: Same Surgery/Procedure Performed: Bilateral lower extremity angiography job service specialist: No Type of Anesthesia: Local and Sedation,Conscious Procedure Start Time: 13:30 Procedure Stop Time: 14:15 Select all DRAINS/GRAFTS/IMPLANTS that apply: None Estimated Blood Loss: 3 Specimen collected: No Description of surgery: HPI: Patient is a 75-year-old female with atherosclerosis and dry gangrene of the bilateral lower extremities that have failed to heal despite maximal local care. She had a prior CT angiography which did not well-visualized the tibial vessels due to calcifications and artifact from orthopedic hardware. She presents now for angiography of the bilateral extremities to determine her open surgical options. Description of procedure: Upon obtaining informed consent and verification correct patient procedure and site the patient was taken to the [facility] where she was positioned prepped and draped in usual sterile fashion. Time was performed conscious sedation administered with Versed and fentanyl. Skin overlying the right radial artery was anesthetized 1% lidocaine the vessel accessed with a micropuncture needle and wire. This then exchanged for a 6 Thai slender sheath through which verapamil, nitro, heparin were infused. Through the sheath a [employer] wire and KMP catheter were advanced navigating the brachial, axillary, subclavian artery and into the aortic arch. We then utilized these to navigate the aortic arch into the descending thoracic aorta advancing the wire ultimately into the left common iliac artery. The KMP catheter then exchanged for an 035 150 quick cross catheter which was advanced over the wire to navigate into the distal external iliac artery. From this position subtraction angiography sequential imaging of the left lower extremity was obtained. The wire and catheter were then withdrawn into the abdominal aorta and then we navigated into the right iliac vessels advancing the catheter to the distal external iliac artery. From this position sequential subtraction angiography images of the right lower extremity were obtained. Once adequate imaging was obtained the wire and catheter withdrawn and the sheath withdrawn followed by a radial band placement. The patient was then taken to recovery with plan discharged to home. Radiograph interpretation: Left common femoral artery with high-grade greater than 75% calcified stenosis. Profundofemoral artery patent large caliber vessel with moderate diffuse atherosclerosis. Superficial femoral artery densely calcified with either near total or total occlusion of the origin with severely calcified though patent small caliber vessel throughout the remainder of the thigh with return to normal caliber in the popliteal artery. Moderate to severe diffuse atherosclerosis and calcified stenosis of the popliteal artery with anterior tibial artery occluded at the origin and reconstitution just above the ankle via peroneal collaterals. Tibioperoneal trunk patent with mild calcified atherosclerosis. Posterior tibial artery patent with diffuse moderate atherosclerosis small caliber vessel, continuous to within the foot. Peroneal artery large caliber dominant runoff with no significant atherosclerosis or stenosis. Large collat eral branch reconstitutes anterior tibial artery above the ankle which then terminates as the dorsalis pedis. Right common femoral artery calcified stenosis greater than 75%, profunda patent proximally with no significant atherosclerosis, with mid segment profunda calcified severe stenosis. Superficial femoral artery occluded at its origin with dense calcification reconstitution of the distal above-knee popliteal artery. The popliteal artery has moderate diffuse calcified atherosclerosis, the anterior tibial artery is patent small caliber vessel with mild diffuse atherosclerosis but continues into the foot. The tibioperoneal trunk is patent with no significant atherosclerosis or stenosis, the posterior tibial artery occludes shortly beyond its origin with no reconstitution visualized. The peroneal artery is the better runoff into the foot with no significant atherosclerosis or stenosis and small caliber vessel. Surgical Findings: See above Complications Complications: No
== END 2025-04-15 16:12 | disposition home or self-care (01) ==
PROVIDERS: PCP Student in an Organized Health Care Education/Training Program; Referring Provider Surgery Trauma Surgery; Visit Provider Surgery Trauma Surgery
DX: E11.52 Type 2 diabetes mellitus with diabetic peripheral angiopathy with gangrene (principal); I70.263 Atherosclerosis of native arteries of extremities with gangrene, bilateral legs; E11.42 Type 2 diabetes mellitus with diabetic polyneuropathy; E11.22 Type 2 diabetes mellitus with diabetic chronic kidney disease; N18.30 Chronic kidney disease, stage 3 unspecified; I12.9 Hypertensive chronic kidney disease with stage 1 through stage 4 chronic kidney disease, or unspecified chronic kidney disease; I65.23 Occlusion and stenosis of bilateral carotid arteries; F32.A Depression, unspecified; E61.1 Iron deficiency; E78.00 Pure hypercholesterolemia, unspecified; I25.10 Atherosclerotic heart disease of native coronary artery without angina pectoris; Z79.82 Long term (current) use of aspirin; Z79.84 Long term (current) use of oral hypoglycemic drugs; Z79.899 Other long term (current) drug therapy; Z79.02 Long term (current) use of antithrombotics/antiplatelets
CPT/HCPCS: 36245; 36246; 36415; 75716; 76937; 80048; 85027; 99152; 99153; C1769; Q9967; C1887; C1894

== ENCOUNTER → 2025-04-20 | Outpatient (CLI) | payer MEDICARE, SELFPAY ==
--- NOTE | 2025-04-20 13:27 | CDU_ITS ---
Reason For Study Reason For Study: Carotid Stenosis Rt. Velocities/BP Lt. Velocities/BP Prox CCA 88/11 cm/sec. Prox CCA 77/18 cm/sec. Mid CCA 67/11 cm/sec. Mid CCA 65/15 cm/sec. Dist CCA 62/14 cm/sec. Dist CCA 64/16 cm/sec. Prox ICA 49/12 cm/sec. Prox ICA 134/32 cm/sec. Mid ICA 90/28 cm/sec. Mid ICA 83/25 cm/sec. Dist ICA 74/20 cm/sec. Dist ICA 85/29 cm/sec. Rt. ICA/CCA = 1.4. Lt. ICA/CCA = 2.06. Prox ECA 197/8 cm/sec. Prox ECA 216/5 cm/sec. Rt. Vert. 55/18 cm/sec. Lt. Vert. 71/17 cm/sec. Right Extracranial There is heterogeneous, irregular atherosclerotic plaque noted in the right common carotid artery. There is heterogeneous, irregular atherosclerotic plaque noted in the right internal carotid artery. There is heterogeneous, irregular atherosclerotic plaque noted in the right external carotid artery. Antegrade flow is noted in the right vertebral artery. Left Extracranial There is heterogeneous, irregular atherosclerotic plaque noted in the left common carotid artery. There is heterogeneous, irregular atherosclerotic plaque noted in the left internal carotid artery. There is heterogeneous, irregular atherosclerotic plaque noted in the left external carotid artery. Antegrade flow is noted in the left vertebral artery. Procedure Carotid Duplex [id number]. This is a Carotid Duplex examination using B-mode, color flow and specral Doppler. Exam performed in department. VL/Carotid Duplex Ultrasound Interpretation Summary Mild (<50%) stenosis right extracranial internal carotid. Moderate (50-69%) stenosis left extracranial internal carotid. Patent and antegrade vertebrals bilaterally. Ordering Physician: Abena Fiore Referring Physician: Rishi Vasquez Performed By: Adelia Bergeron, JAMAR, RVT
== END | disposition home or self-care (01) ==
LOC: CVS 13:26
PROVIDERS: PCP Student in an Organized Health Care Education/Training Program; Referring Provider Physician Assistant; Visit Provider Physician Assistant
DX: I65.23 Occlusion and stenosis of bilateral carotid arteries (principal)
CPT/HCPCS: 93880

== ENCOUNTER 2025-04-23 08:00 | Outpatient (RCR) | payer SELFPAY | END 2025-05-18 23:59 | LOC: CR 08:00 | PROVIDERS: PCP Student in an Organized Health Care Education/Training Program; Referring Provider Student in an Organized Health Care Education/Training Program; Visit Provider Student in an Organized Health Care Education/Training Program | DX: L89.629 Pressure ulcer of left heel, unspecified stage ==

== ENCOUNTER → 2025-04-27 | Outpatient (CLI) | payer MEDICARE, SELFPAY ==
--- NOTE | 2025-04-27 12:43 | US_ITS ---
PROCEDURE: THYROID, 04/27/2025 REASON FOR EXAM: ONE YEAR F/U TECHNIQUE: Grayscale and color Doppler imaging of the thyroid was performed. COMPARISON: 01/09/2024 ; note that images only are available for review, the report is not available at the time of the dictation. FINDINGS: Right lobe measures 6.0 x 2.4 x 2.7cm. Essentially homogeneous background echotexture. No abnormal vascularity. Nodules as below: *10 x 10 x 12 mm, mixed cystic and solid, punctate echogenic foci, slightly hypoechoic solid components, TI-RADS 4. Probably corresponding to a nodule previously measuring 8 x 14 x 11 mm. *5 x 4 x 6 mm, spongiform, not suspicious. *A previous solid hypoechoic nodule with punctate echogenic foci is not seen. Left lobe measures 6.2 x 2.5 x 3.7 cm. Essentially homogeneous background echotexture. No abnormal vascularity. Nodules as below: *14 x 11 x 12 mm, mostly cystic, not suspicious. *10 x 10 x 7 mm, mostly solid, hypoechoic, TI-RADS 4. Unclear correlate previously. *7 x 6 x 6 mm, mostly solid, isoechoic, TI-RADS 3. Unclear correlate previously. *Previous solid hypoechoic nodule at the lower pole near the isthmus with punctate echogenic foci not visualized. *Additional smaller nodules and cysts. Isthmus measures 10 mm in thickness, thickened. US/Thyroid IMPRESSION: 1. Assessment is TI-RADS 4. No nodules currently meet criteria for FNA. Follow -up is recommended in 1 year as per. Note some nodules previously seen were nonvisualized. Recommend specific attention on fo llow-up. 2. Enlarged gland with homogeneous background appearance. No abnormal vascular ity. Management recommendations for TI-RADS 3 findings: FNA if = 2.5 cm; Follow if = 1.5 cm at 1, 3, and 5 years. Management recommendations for TI-RADS 4 findings: FNA if = 1.5 cm; Follow if = 1 cm at 1, 2, 3, and 5 years. Enlargment is defined as ?20% increase in at least two nodule dimensions, with a minimal increase of 2 mm or ?50% or greater increase in volume. Recommendations per ACR Thyroid Imaging, Reporting and Data System (TI-RADS): W yvette Paper of the ACR TI-RADS Committee, 2017 ([email or web address]/[email or web address]) Reading Location: [id number]
== END | disposition home or self-care (01) ==
LOC: US 12:39
PROVIDERS: PCP Student in an Organized Health Care Education/Training Program; Referring Provider Surgery; Visit Provider Surgery
DX: E04.2 Nontoxic multinodular goiter (principal)
CPT/HCPCS: 76536

== ENCOUNTER 2025-05-08 09:00 | Outpatient (CLI) | payer MEDICARE, SELFPAY ==
--- NOTE | 2025-05-08 13:52 | PAT.ANE_ITS ---
Pre-Assessment Diagnosis/Proposed Procedure Planned Operative Procedure(s): (L) Left Femoral Endarterectomy, Left Fem-Tib. 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 When Was Last Pacemaker Check QUESTION #4 FULL TEXT: You/Your Family Experience fever (hyperthermia) with Anesthesia Last Oral Intake Last Oral intake: Last Oral Intake NPO since Meds taken in AM with sips of water? 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 mechanic apprentice Female Yes 05/08/25 10:01 HX of Motion Sickness No 05/08/25 10:01 HX of N/V After Surgery No 05/08/25 10:01 Non-Smoker Yes 05/08/25 10:01 Duration of Surgery greater Yes 05/08/25 10:01 than 60 minutes Number of Risk Factors 3 05/08/25 10:01 PONV Score Moderate Risk 05/08/25 10:01 Height & Weight Height & Weight: Anesthesia: Height & Weight Height 5 ft 6 in 04/15/25 11:26 Respiratory Assessment Respiratory Assessment - piano mechanic apprentice: Respiratory Tract Infection Hx - piano mechanic apprentice Hx Respiratory Tract Infection No 05/08/25 10:01 STOP Sleep Apnea STOP Sleep Apnea - piano mechanic apprentice: STOP Sleep Apnea - piano mechanic apprentice Hx Hypertension Yes: PER PT, CONTROLLED ON 05/08/25 10:01 MEDS Hx Sleep Apnea No 05/08/25 10:01 CPAP No 05/08/25 10:01 BIPAP No 05/08/25 10:01 Do you snore loudly (louder No 05/08/25 10:01 than talking or can be heard Do you often feel tired/ No 05/08/25 10:01 fatigued/ sleepy during daytime? Has anyone observed you stop No 05/08/25 10:01 breathing during sleep? STOP Results Negative 05/08/25 10:01 QUESTION #5 FULL TEXT : Do you snore loudly (louder than talking or can be heard through closed doors)? 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 Tobacco Use Cigarettes 04/02/24 09:13 Smoking Status Former smoker 05/08/25 10:01 Hx Tobacco Use No 05/08/25 10:01 Years Smoking Packs Smoked per Day Smoking Cessation Date was Yes - quit smoking within 15 05/08/25 10:01 within the last 15 years years Hx Smoking Cessation Date 01/01/13 05/08/25 10:01 Hx Smoking Cessation No 05/08/25 10:01 Counseling Hematologic Medial History Hematologic Hx - piano mechanic apprentice: Hematologic Medical Hx - it technical support specialist Hx of Blood Transfusion Yes 05/08/25 10:01 Hx of Transfusion in last 3 Yes 05/08/25 10:01 Months Date of Last Transfusion (if 03/19/2025 05/08/25 10:01 within last 3 months) Ever experience any problems No 05/08/25 10:01 with transfusion(s)? Specify any problems Hx of Preganancy in last 3 No 05/08/25 10:01 Months Nurse Filling Out Transfusion SANDRA 05/08/25 10:01 & Questions: Date: 05/08/25 05/08/25 10:01 Time: 10:05 05/08/25 10:01 Patient unable to answer at this time (ie. 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 Other specified peripheral vascular diseases Chronic painful diabetic polyneuropathy MRSA (methicillin resistant staph aureus) culture positive Depression Diabetes Back pain Vertigo History of pain when walking Hypertension Arthritis Wears dentures Post-menopausal Low iron High cholesterol Easy bruising Neuropathy Dietary restriction Former smoker Cardiology follow-up encounter History of torn meniscus of left knee Carotid artery stenosis Essential hypertension Skin lesion Hammer toe of left foot Osteomyelitis Chronic kidney disease, stage 3 Atherosclerosis of coronary artery of [place] heart without angina pectoris Hyperlipidemia Peripheral vascular occlusive disease Hammer toe of second toe of left foot Hallux valgus (acquired), right foot Healed ulcer of left foot on examination Chronic ulcer of left foot with fat layer exposed Delayed wound healing Malnutrition Osteomyelitis of foot 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 Methicillin resistant Staphylococcus aureus infection Chronic osteomyelitis of left foot Non-healing ulcer of right foot DM2 (diabetes mellitus, type 2) Home Medications ?Medication ?Instructions ?Recorded ?Last Taken ?Type aspirin 81 mg tablet,delayed 81 mg PO QHS blood clots 01/13/14 04/14/25 History release multivitamin with folic acid 400 1 tab PO DAILY Supple ment 01/13/14 11/14/16 History mcg tablet omega-3 fatty acids-fish oil 340 1 ea PO DAILY supplem ent 06/29/16 08/27/16 History mg-1,000 mg capsule ferrous sulfate 325 mg (65 mg 325 mg PO DAILY SUPPLEME NT 08/15/18 03/08/25 History iron) tablet ascorbic acid (vitamin C) 500 mg 1,000 mg PO LUNCH Sup plement 11/25/20 03/11/25 11:50 History tablet calcium carbonate (Calcium 600) 600 mg PO DAILY supple ment 12/29/21 Unknown History cranberry extract 500 mg capsule 500 mg PO DINNER Urin asmita tract 08/08/22 Unknown History clopidogrel 75 mg tablet 75 mg PO DAILY Blood clots # 90 tabs 10/23/24 04/15/25 Rx Lactobacillus acidophilus 600 mg PO QDAY gi 03/07/25 0 03/11/25 09:00 History (Acidophilus capsule) pregabalin 100 mg capsule 100 mg PO TID nerve pain 03/11/25 11:50 History simvastatin 20 mg tablet 20 mg PO QHS cholesterol #30 tabs 03/23/25 Unknown Rx glipizide 5 mg tablet, extended 5 mg PO QDAY DIABETES 05/07/25 Unknown History release 24 hr nystatin 100,000 unit/gram topical 1 applic topical BI D PRN rash 05/07/25 Unknown History powder (Nyamyc) acetaminophen 650 mg 650 mg PO Q12H PRN pain 04/20 Unknown History tablet,extended release amlodipine 5 mg tablet 5 mg PO DAILY HTN #90 tabs 0 05/12/25 Unknown Rx metoprolol succinate 25 mg 12.5 mg (1/2 x 25 mg) PO DA FABIAN 05/12/25 Unknown Rx tablet,extended release 24 hr HEART RATE #45 tabs Allergy/AdvReac Type Severity Reaction Status Date / Time Sulfa (Sulfonamide Allergy Unknown Verified 05/08/25 09:50 Antibiotics) Family History Father CAD (coronary artery disease) Heart disease Hypertension CVA (cerebral vascular accident) Mother COPD (chronic obstructive pulmonary disease) Hypertension Heart disease Heart failure Surgical History (Updated 05/08/25 @ 10:17 by Brenda Brody) History of cardiac catheterization History of colonoscopy History of foot surgery History of repair of left rotator cuff History of total left knee replacement (~2014) History of angioplasty of peripheral vessel (~2012) amputation left toe History of left heart catheterization (~01/20/14) Social History household members: none Smoking Status: Former smoker how long ago did patient quit smokin years ago alcohol intake: never substance use type: does not use caffeine: No Audit: Pertinent Findings Pertinent Findings EKG Perinent findings: March 07, 2025. Normal sinus rhythm. Septal infarct, age undetermined. Stress test pertinent findings: 05/08/2025. EF 55%. Resting hypoperfusion of the inferior lateral wall consistent with nontransmural infarct with mild will- infarct ischemia. Echo (EF%) pertinent findings: March 11, 2024. EF 60%. No aortic stenosis. Consult pertinent findings: May 07, 2025. Roof CARDIOLOGY NURSE-C. 1 systolic murmur?acute-last echo in February 2024 showed no hemodynamically significant valvular disease. Trivial MR seems to be stable. Continue current medical therapy. Continue to monitor. 2. Hypertension?apiveel-migl-dbqhjqhagr. 3. Atherosclerosis of the coronary arteries without angina?chronic-history of known totally occluded RCA. Stable. Continue to monitor. 4. Preop CV exam-activity is very limited. Will check nuclear stress test. (See above) Recommendation Anesthesia Recommendation Anesthesia recommendation: F/U recommended (Stress test done May 11, 2025 showed mild will-infarct ischemia. Can we have cardiology address this issue.)
--- NOTE | 2025-05-08 13:52 | PAT.ANE_ITS ---
Pre-Assessment Diagnosis/Proposed Procedure Planned Operative Procedure(s): (L) Left Femoral Endarterectomy, Left Fem-Tib. Artery Bi pass with cadaver graft Left Sartorius Flap Anesthesia History Anesthesia History - supervisor coffee: Anesthesia History - supervisor coffee Hx Hospitalization Yes: 02/2025 FELL 05/08/25 10:01 Any Problems With Anesthesia No 05/08/25 10:01 Cholinesterase deficiency No 05/08/25 10:01 You/Your Family Experience No 05/08/25 10:01 fever (hyperthermia) with Relationship Recent Exposure to Contagious No 04/02/24 09:13 Disease Does patient have nerve No 05/08/25 10:01 stimulator Patient instructed to have device shut off --Does patient have Pacemaker or ICD? When Was Last Pacemaker Check QUESTION #4 FULL TEXT: You/Your Family Experience fever (hyperthermia) with Anesthesia Last Oral Intake Last Oral intake: Last Oral Intake NPO since Meds taken in AM with sips of water? Meds patient instructed to take am of surgery PONV PONV - supervisor coffee: PONV - supervisor coffee Female Yes 05/08/25 10:01 HX of Motion Sickness No 05/08/25 10:01 HX of N/V After Surgery No 05/08/25 10:01 Non-Smoker Yes 05/08/25 10:01 Duration of Surgery greater Yes 05/08/25 10:01 than 60 minutes Number of Risk Factors 3 05/08/25 10:01 PONV Score Moderate Risk 05/08/25 10:01 Height & Weight Height & Weight: Anesthesia: Height & Weight Height 5 ft 6 in 04/15/25 11:26 Respiratory Assessment Respiratory Assessment - supervisor coffee: Respiratory Tract Infection Hx - supervisor coffee Hx Respiratory Tract Infection No 05/08/25 10:01 STOP Sleep Apnea STOP Sleep Apnea - supervisor coffee: STOP Sleep Apnea - supervisor coffee Hx Hypertension Yes: PER PT, CONTROLLED ON 05/08/25 10:01 MEDS Hx Sleep Apnea No 05/08/25 10:01 CPAP No 05/08/25 10:01 BIPAP No 05/08/25 10:01 Do you snore loudly (louder No 05/08/25 10:01 than talking or can be heard Do you often feel tired/ No 05/08/25 10:01 fatigued/ sleepy during daytime? Has anyone observed you stop No 05/08/25 10:01 breathing during sleep? STOP Results Negative 05/08/25 10:01 QUESTION #5 FULL TEXT : Do you snore loudly (louder than talking or can be heard through closed doors)? 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 Specify any problems Hx of Preganancy in last 3 No 05/08/25 10:01 Months Nurse Filling Out Transfusion SANDRA 05/08/25 10:01 & Questions: Date: 05/08/25 05/08/25 10:01 Time: 10:05 05/08/25 10:01 Patient unable to answer at this time (ie. 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 Other specified peripheral vascular diseases Chronic painful diabetic polyneuropathy MRSA (methicillin resistant staph aureus) culture positive Depression Diabetes Back pain Vertigo History of pain when walking Hypertension Arthritis Wears dentures Post-menopausal Low iron High cholesterol Easy bruising Neuropathy Dietary restriction Former smoker Cardiology follow-up encounter History of torn meniscus of left knee Carotid artery stenosis Essential hypertension Skin lesion Hammer toe of left foot Osteomyelitis Chronic kidney disease, stage 3 Atherosclerosis of coronary artery of [place] heart without angina pectoris Hyperlipidemia Peripheral vascular occlusive disease Hammer toe of second toe of left foot Hallux valgus (acquired), right foot Healed ulcer of left foot on examination Chronic ulcer of left foot with fat layer exposed Delayed wound healing Malnutrition Osteomyelitis of foot 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 Methicillin resistant Staphylococcus aureus infection Chronic osteomyelitis of left foot Non-healing ulcer of right foot DM2 (diabetes mellitus, type 2) Home Medications ?Medication ?Instructions ?Recorded ?Last Taken ?Type aspirin 81 mg tablet,delayed 81 mg PO QHS blood clots 01/13/14 04/14/25 History release multivitamin with folic acid 400 1 tab PO DAILY Supple ment 01/13/14 11/14/16 History mcg tablet omega-3 fatty acids-fish oil 340 1 ea PO DAILY supplem ent 06/29/16 08/27/16 History mg-1,000 mg capsule ferrous sulfate 325 mg (65 mg 325 mg PO DAILY SUPPLEME NT 08/15/18 03/08/25 History iron) tablet ascorbic acid (vitamin C) 500 mg 1,000 mg PO LUNCH Sup plement 11/25/20 03/11/25 11:50 History tablet calcium carbonate (Calcium 600) 600 mg PO DAILY supple ment 12/29/21 Unknown History cranberry extract 500 mg capsule 500 mg PO DINNER Urin asmita tract 08/08/22 Unknown History clopidogrel 75 mg tablet 75 mg PO DAILY Blood clots # 90 tabs 10/23/24 04/15/25 Rx Lactobacillus acidophilus 600 mg PO QDAY gi 03/07/25 0 03/11/25 09:00 History (Acidophilus capsule) pregabalin 100 mg capsule 100 mg PO TID nerve pain 03/11/25 11:50 History simvastatin 20 mg tablet 20 mg PO QHS cholesterol #30 tabs 03/23/25 Unknown Rx glipizide 5 mg tablet, extended 5 mg PO QDAY DIABETES 05/07/25 Unknown History release 24 hr nystatin 100,000 unit/gram topical 1 applic topical BI D PRN rash 05/07/25 Unknown History powder (Nyamyc) acetaminophen 650 mg 650 mg PO Q12H PRN pain 04/20 Unknown History tablet,extended release amlodipine 5 mg tablet 5 mg PO DAILY HTN #90 tabs 0 05/12/25 Unknown Rx metoprolol succinate 25 mg 12.5 mg (1/2 x 25 mg) PO DA FABIAN 05/12/25 Unknown Rx tablet,extended release 24 hr HEART RATE #45 tabs Allergy/AdvReac Type Severity Reaction Status Date / Time Sulfa (Sulfonamide Allergy Unknown Verified 05/08/25 09:50 Antibiotics) Family History Father CAD (coronary artery disease) Heart disease Hypertension CVA (cerebral vascular accident) Mother COPD (chronic obstructive pulmonary disease) Hypertension Heart disease Heart failure Surgical History (Updated 05/08/25 @ 10:17 by Brenda Brody) History of cardiac catheterization History of colonoscopy History of foot surgery History of repair of left rotator cuff History of total left knee replacement (~2014) History of angioplasty of peripheral vessel (~2012) amputation left toe History of left heart catheterization (~01/20/14) Social History household members: none Smoking Status: Former smoker how long ago did patient quit smokin years ago alcohol intake: never substance use type: does not use caffeine: No Audit: Pertinent Findings Pertinent Findings EKG Perinent findings: March 07, 2025. Normal sinus rhythm. Septal infarct, age undetermined. Stress test pertinent findings: 05/08/2025. EF 55%. Resting hypoperfusion of the inferior lateral wall consistent with nontransmural infarct with mild will- infarct ischemia. Echo (EF%) pertinent findings: March 11, 2024. EF 60%. No aortic stenosis. Consult pertinent findings: May 07, 2025. 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 1 systolic murmur?acute-last echo in February 2024 showed no hemodynamically significant valvular disease. Trivial MR seems to be stable. Continue current medical therapy. Continue to monitor. 2. Hypertension?zhcshyj-yxyl-lpgckjtino. 3. Atherosclerosis of the coronary arteries without angina?chronic-history of known totally occluded RCA. Stable. Continue to monitor. 4. Preop CV exam-activity is very limited. Will check nuclear stress test. (See above) Recommendation Anesthesia Recommendation Anesthesia recommendation: F/U recommended (Stress test done May 11, 2025 showed mild will-infarct ischemia. Can we have cardiology address this issue.)
[2025-05-08 15:50] LABS: Hemoglobin 10.4 g/dL (12.0-15.0); Mean Corp Hgb Conc 32.5 g/dL (32-36); Mean Corpuscular Hgb 29.6 pg (27.0-32.0); Mean Corpuscular Volume 91.2 fL (81-99); Mean Platelet Vol. 11.8 fl (6.2-12.0); Platelet Count 170 K/mm3 (150-450); RBC Distribution Width CV 14.9 % (11.6-14.6); RBC Distribution Width SD 50.3 fl (35.1-43.9); Red Blood Count 3.51 M/mm3 (4.2-5.4)
[2025-05-08 16:32] LABS: Anion Gap 12 (5-15); BUN 38 mg/dL (4-19); BUN/Creat Ratio 40.4 RATIO (10-20); Calcium,Total 8.8 mg/dL (7.6-11.0); Chloride 104 mmol/L (98-108); Creatinine, Serum 0.93 mg/dL (0.70-1.20); EST Glomerular Filtration Rate 65 (>60); Glucose 197 mg/dL (70-99); Potassium 4.4 mmol/L (3.3-5.1); Sodium Level 138 mmol/L (133-145)
--- NOTE | 2025-05-25 12:35 | PAT.ANESEVAL ---
Pre-Assessment Diagnosis/Proposed Procedure Planned Operative Procedure(s): (L) Left Femoral Endarterectomy, Left Fem-Tib. Artery Bi pass with cadaver graft Left Sartorius Flap Anesthesia History Anesthesia History - materials coordinator: Anesthesia History - materials coordinator Hx Hospitalization Yes: 02/2025 FELL 05/08/25 10:01 Any Problems With Anesthesia No 05/08/25 10:01 Cholinesterase deficiency No 05/08/25 10:01 You/Your Family Experience No 05/08/25 10:01 fever (hyperthermia) with Relationship Recent Exposure to Contagious No 04/02/24 09:13 Disease Does patient have nerve No 05/08/25 10:01 stimulator Patient instructed to have device shut off --Does patient have Pacemaker or ICD? When Was Last Pacemaker Check QUESTION #4 FULL TEXT: You/Your Family Experience fever (hyperthermia) with Anesthesia Last Oral Intake Last Oral intake: Last Oral Intake NPO since Meds taken in AM with sips of water? Meds patient instructed to take am of surgery PONV PONV - materials coordinator: PONV - materials coordinator Female Yes 05/08/25 10:01 HX of Motion Sickness No 05/08/25 10:01 HX of N/V After Surgery No 05/08/25 10:01 Non-Smoker Yes 05/08/25 10:01 Duration of Surgery greater Yes 05/08/25 10:01 than 60 minutes Number of Risk Factors 3 05/08/25 10:01 PONV Score Moderate Risk 05/08/25 10:01 Height & Weight Height & Weight: Anesthesia: Height & Weight Height 5 ft 6 in 04/15/25 11:26 Respiratory Assessment Respiratory Assessment - materials coordinator: Respiratory Tract Infection Hx - materials coordinator Hx Respiratory Tract Infection No 05/08/25 10:01 STOP Sleep Apnea STOP Sleep Apnea - materials coordinator: STOP Sleep Apnea - materials coordinator Hx Hypertension Yes: PER PT, CONTROLLED ON 05/08/25 10:01 MEDS Hx Sleep Apnea No 05/08/25 10:01 CPAP No 05/08/25 10:01 BIPAP No 05/08/25 10:01 Do you snore loudly (louder No 05/08/25 10:01 than talking or can be heard Do you often feel tired/ No 05/08/25 10:01 fatigued/ sleepy during daytime? Has anyone observed you stop No 05/08/25 10:01 breathing during sleep? STOP Results Negative 05/08/25 10:01 QUESTION #5 FULL TEXT : Do you snore loudly (louder than talking or can be heard through closed doors)? 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 Specify any problems Hx of Preganancy in last 3 No 05/08/25 10:01 Months Nurse Filling Out Transfusion MGRIFFITH 05/08/25 10:01 & Questions: Date: 05/08/25 05/08/25 10:01 Time: 10:05 05/08/25 10:01 Patient unable to answer at this time (ie. confused, unrespo /Reproduction History /Reproductive History - materials coordinator: /Reproductive Hx- materials coordinator Hx Now No 05/08/25 10:01 Gestational Age (in weeks): EDC: Hx Hx Para Hx Section SAB No 05/08/25 10:01 Active Medications Active Medications: Current Medications Generic Name Dose Route Start Last Admin Trade Name Freq PRN Reason Stop Dose Admin Cefazolin Sodium 2 gm/ Sodium 110 mls @ 200 mls/hr 05/26/25 07:30 Chloride IV 05/26/25 08:02 INTRAOP ONE PFSH Medical History Other specified peripheral vascular diseases History of MRSA infection Pressure ulcer Ambulates with cane Shortness of breath on exertion History of edema History of echocardiogram Fall 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 Chronic painful diabetic polyneuropathy MRSA (methicillin resistant staph aureus) culture positive Depression Diabetes Back pain Vertigo History of pain when walking Hypertension Arthritis Wears dentures Post-menopausal Low iron High cholesterol Easy bruising Neuropathy Dietary restriction Former smoker Cardiology follow-up encounter History of torn meniscus of left knee Carotid artery stenosis Essential hypertension Skin lesion Hammer toe of left foot Osteomyelitis Chronic kidney disease, stage 3 Atherosclerosis of coronary artery of [place] heart without angina pectoris Hyperlipidemia Peripheral vascular occlusive disease Hammer toe of second toe of left foot Hallux valgus (acquired), right foot Healed ulcer of left foot on examination Chronic ulcer of left foot with fat layer exposed Delayed wound healing Malnutrition Osteomyelitis of foot 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 Methicillin resistant Staphylococcus aureus infection Chronic osteomyelitis of left foot Non-healing ulcer of right foot DM2 (diabetes mellitus, type 2) Home Medications ?Medication ?Instructions ?Recorded ?Last Taken ?Type aspirin 81 mg tablet,delayed 81 mg PO QHS blood clots 01/13/14 04/14/25 History release multivitamin with folic acid 400 1 tab PO DAILY Supplement 01/13/14 11/14/16 History mcg tablet omega-3 fatty acids-fish oil 340 1 ea PO DAILY supplement 06/29/16 08/27/16 History mg-1,000 mg capsule ferrous sulfate 325 mg (65 mg 325 mg PO DAILY SUPPLEMENT 08/15/18 03/08/25 History iron) tablet ascorbic acid (vitamin C) 500 mg 1,000 mg PO LUNCH Supplement 11/25/20 03/11/25 11:50 History tablet calcium carbonate (Calcium 600) 600 mg PO DAILY supplement 12/29/21 Unknown History clopidogrel 75 mg tablet 75 mg PO DAILY Blood clots #90 tabs 10/23/24 04/15/25 Rx Lactobacillus acidophilus 600 mg PO QDAY gi 03/07/25 03/11/25 09:00 History (Acidophilus capsule) pregabalin 100 mg capsule 100 mg PO TID nerve pain 03/07/25 03/11/25 11:50 History simvastatin 20 mg tablet 20 mg PO QHS cholesterol #30 tabs 03/23/25 Unknown Rx nystatin 100,000 unit/gram topical 1 applic topical BID PRN rash 05/07/25 Unknown History powder (Nyamyc) acetaminophen 650 mg 650 mg PO Q12H PRN pain 05/08/25 Unknown History tablet,extended release amlodipine 5 mg tablet 5 mg PO DAILY HTN #90 tabs 05/12/25 Unknown Rx metoprolol succinate 25 mg 12.5 mg (1/2 x 25 mg) PO DAILY 05/12/25 Unknown Rx tablet,extended release 24 hr HEART RATE #45 tabs glimepiride 2 mg tablet 2 mg PO BID 05/18/25 Unknown History collagenase clostridium histo. 250 1 applic topical DAILY #15 grams 05/21/25 Unknown Rx unit/gram topical ointment (Santyl) linezolid 600 mg tablet 600 mg PO BID #21 tabs 05/21/25 Unknown Rx Allergy/AdvReac Type Severity Reaction Status Date / Time Sulfa (Sulfonamide Allergy Unknown Verified 05/22/25 11:05 Antibiotics) Family History Father CAD (coronary artery disease) Heart disease Hypertension CVA (cerebral vascular accident) Mother COPD (chronic obstructive pulmonary disease) Hypertension Heart disease Heart failure Surgical History History of cardiac catheterization History of colonoscopy History of foot surgery History of repair of left rotator cuff History of total left knee replacement (~2014) History of angioplasty of peripheral vessel (~2012) amputation left toe History of left heart catheterization (~01/20/14) Social History household members: none Smoking Status: Former smoker how long ago did patient quit smokin years ago alcohol intake: never substance use type: does not use caffeine: No Audit: Pertinent Findings HISTORY of Pertinent Findings History of Pertinent Findings: EKG Pertinent Findings EKG Perinent findings March 07, 2025. Normal 05/08/25 13:59 sinus rhythm. Septal infarct, age undetermined. Stress Test Pertinent Findings Stress test pertinent findings 05/08/2025. EF 55%. Resting 05/12/25 21:42 hypoperfusion of the inferior lateral wall consistent with nontransmural infarct with mild will-infarct ischemia. Echo Pertinent Findings Echo (EF%) pertinent findings March 11, 2024. EF 60%. No 05/08/25 13:59 aortic stenosis. Heart Catheterization Pertinent Findings Heart catheterization April 07, 2025. 05/08/25 14:12 pertinent findings Consult Pertinent Findings Consult pertinent findings May 07, 2025. Rubio EMERY. 05/08/25 14:12 1 systolic murmur?acute-last echo in February 2024 showed no hemodynamically significant valvular disease . Trivial MR seems to be stable. Continue current medical therapy. Continue to monitor. 2. Hypertension?chronic- well-controlled. 3. Atherosclerosis of the coronary arteries without angina?chronic-history of known totally occluded RCA. Stable. Continue to monitor. 4. Preop CV exam-activity is very limited. Will check nuclear stress test. (See above) Recommendation Anesthesia Recommendation Anesthesia recommendation: OPTIMIZED for anesthesia
--- NOTE | 2025-05-25 12:35 | PAT.ANESEVAL ---
Pre-Assessment Diagnosis/Proposed Procedure Planned Operative Procedure(s): (L) Left Femoral Endarterectomy, Left Fem-Tib. Artery Bi pass with cadaver graft Left Sartorius Flap Anesthesia History Anesthesia History - tapeman: Anesthesia History - tapeman Hx Hospitalization Yes: 02/2025 FELL 05/08/25 10:01 Any Problems With Anesthesia No 05/08/25 10:01 Cholinesterase deficiency No 05/08/25 10:01 You/Your Family Experience No 05/08/25 10:01 fever (hyperthermia) with Relationship Recent Exposure to Contagious No 04/02/24 09:13 Disease Does patient have nerve No 05/08/25 10:01 stimulator Patient instructed to have device shut off --Does patient have Pacemaker or ICD? When Was Last Pacemaker Check QUESTION #4 FULL TEXT: You/Your Family Experience fever (hyperthermia) with Anesthesia Last Oral Intake Last Oral intake: Last Oral Intake NPO since Meds taken in AM with sips of water? Meds patient instructed to take am of surgery PONV PONV - tapeman: PONV - tapeman Female Yes 05/08/25 10:01 HX of Motion Sickness No 05/08/25 10:01 HX of N/V After Surgery No 05/08/25 10:01 Non-Smoker Yes 05/08/25 10:01 Duration of Surgery greater Yes 05/08/25 10:01 than 60 minutes Number of Risk Factors 3 05/08/25 10:01 PONV Score Moderate Risk 05/08/25 10:01 Height & Weight Height & Weight: Anesthesia: Height & Weight Height 5 ft 6 in 04/15/25 11:26 Respiratory Assessment Respiratory Assessment - tapeman: Respiratory Tract Infection Hx - tapeman Hx Respiratory Tract Infection No 05/08/25 10:01 STOP Sleep Apnea STOP Sleep Apnea - tapeman: STOP Sleep Apnea - tapeman Hx Hypertension Yes: PER PT, CONTROLLED ON 05/08/25 10:01 MEDS Hx Sleep Apnea No 05/08/25 10:01 CPAP No 05/08/25 10:01 BIPAP No 05/08/25 10:01 Do you snore loudly (louder No 05/08/25 10:01 than talking or can be heard Do you often feel tired/ No 05/08/25 10:01 fatigued/ sleepy during daytime? Has anyone observed you stop No 05/08/25 10:01 breathing during sleep? STOP Results Negative 05/08/25 10:01 QUESTION #5 FULL TEXT : Do you snore loudly (louder than talking or can be heard through closed doors)? 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 Specify any problems Hx of Preganancy in last 3 No 05/08/25 10:01 Months Nurse Filling Out Transfusion MGRIFFITH 05/08/25 10:01 & Questions: Date: 05/08/25 05/08/25 10:01 Time: 10:05 05/08/25 10:01 Patient unable to answer at this time (ie. confused, unrespo /Reproduction History /Reproductive History - tapeman: /Reproductive Hx- tapeman Hx Now No 05/08/25 10:01 Gestational Age (in weeks): EDC: Hx Hx Para Hx Section SAB No 05/08/25 10:01 Active Medications Active Medications: Current Medications Generic Name Dose Route Start Last Admin Trade Name Freq PRN Reason Stop Dose Admin Cefazolin Sodium 2 gm/ Sodium 110 mls @ 200 mls/hr 05/26/25 07:30 Chloride IV 05/26/25 08:02 INTRAOP ONE PFSH Medical History Other specified peripheral vascular diseases History of MRSA infection Pressure ulcer Ambulates with cane Shortness of breath on exertion History of edema History of echocardiogram Fall 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 Chronic painful diabetic polyneuropathy MRSA (methicillin resistant staph aureus) culture positive Depression Diabetes Back pain Vertigo History of pain when walking Hypertension Arthritis Wears dentures Post-menopausal Low iron High cholesterol Easy bruising Neuropathy Dietary restriction Former smoker Cardiology follow-up encounter History of torn meniscus of left knee Carotid artery stenosis Essential hypertension Skin lesion Hammer toe of left foot Osteomyelitis Chronic kidney disease, stage 3 Atherosclerosis of coronary artery of circle heart without angina pectoris Hyperlipidemia Peripheral vascular occlusive disease Hammer toe of second toe of left foot Hallux valgus (acquired), right foot Healed ulcer of left foot on examination Chronic ulcer of left foot with fat layer exposed Delayed wound healing Malnutrition Osteomyelitis of foot 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 Methicillin resistant Staphylococcus aureus infection Chronic osteomyelitis of left foot Non-healing ulcer of right foot DM2 (diabetes mellitus, type 2) Home Medications ?Medication ?Instructions ?Recorded ?Last Taken ?Type aspirin 81 mg tablet,delayed 81 mg PO QHS blood clots 01/13/14 04/14/25 History release multivitamin with folic acid 400 1 tab PO DAILY Supplement 01/13/14 11/14/16 History mcg tablet omega-3 fatty acids-fish oil 340 1 ea PO DAILY supplement 06/29/16 08/27/16 History mg-1,000 mg capsule ferrous sulfate 325 mg (65 mg 325 mg PO DAILY SUPPLEMENT 08/15/18 03/08/25 History iron) tablet ascorbic acid (vitamin C) 500 mg 1,000 mg PO LUNCH Supplement 11/25/20 03/11/25 11:50 History tablet calcium carbonate (Calcium 600) 600 mg PO DAILY supplement 12/29/21 Unknown History clopidogrel 75 mg tablet 75 mg PO DAILY Blood clots #90 tabs 10/23/24 04/15/25 Rx Lactobacillus acidophilus 600 mg PO QDAY gi 03/07/25 03/11/25 09:00 History (Acidophilus capsule) pregabalin 100 mg capsule 100 mg PO TID nerve pain 03/07/25 03/11/25 11:50 History simvastatin 20 mg tablet 20 mg PO QHS cholesterol #30 tabs 03/23/25 Unknown Rx nystatin 100,000 unit/gram topical 1 applic topical BID PRN rash 05/07/25 Unknown History powder (Nyamyc) acetaminophen 650 mg 650 mg PO Q12H PRN pain 05/08/25 Unknown History tablet,extended release amlodipine 5 mg tablet 5 mg PO DAILY HTN #90 tabs 05/12/25 Unknown Rx metoprolol succinate 25 mg 12.5 mg (1/2 x 25 mg) PO DAILY 05/12/25 Unknown Rx tablet,extended release 24 hr HEART RATE #45 tabs glimepiride 2 mg tablet 2 mg PO BID 05/18/25 Unknown History collagenase clostridium histo. 250 1 applic topical DAILY #15 grams 05/21/25 Unknown Rx unit/gram topical ointment (Santyl) linezolid 600 mg tablet 600 mg PO BID #21 tabs 05/21/25 Unknown Rx Allergy/AdvReac Type Severity Reaction Status Date / Time Sulfa (Sulfonamide Allergy Unknown Verified 05/22/25 11:05 Antibiotics) Family History Father CAD (coronary artery disease) Heart disease Hypertension CVA (cerebral vascular accident) Mother COPD (chronic obstructive pulmonary disease) Hypertension Heart disease Heart failure Surgical History History of cardiac catheterization History of colonoscopy History of foot surgery History of repair of left rotator cuff History of total left knee replacement (~2014) History of angioplasty of peripheral vessel (~2012) amputation left toe History of left heart catheterization (~01/20/14) Social History household members: none Smoking Status: Former smoker how long ago did patient quit smokin years ago alcohol intake: never substance use type: does not use caffeine: No Audit: Pertinent Findings HISTORY of Pertinent Findings History of Pertinent Findings: EKG Pertinent Findings EKG Perinent findings March 07, 2025. Normal 05/08/25 13:59 sinus rhythm. Septal infarct, age undetermined. Stress Test Pertinent Findings Stress test pertinent findings 05/08/2025. EF 55%. Resting 05/12/25 21:42 hypoperfusion of the inferior lateral wall consistent with nontransmural infarct with mild will-infarct ischemia. Echo Pertinent Findings Echo (EF%) pertinent findings March 11, 2024. EF 60%. No 05/08/25 13:59 aortic stenosis. Heart Catheterization Pertinent Findings Heart catheterization April 07, 2025. 05/08/25 14:12 pertinent findings Consult Pertinent Findings Consult pertinent findings May 07, 2025. Rubio EMERY. 05/08/25 14:12 1 systolic murmur?acute-last echo in February 2024 showed no hemodynamically significant valvular disease . Trivial MR seems to be stable. Continue current medical therapy. Continue to monitor. 2. Hypertension?chronic- well-controlled. 3. Atherosclerosis of the coronary arteries without angina?chronic-history of known totally occluded RCA. Stable. Continue to monitor. 4. Preop CV exam-activity is very limited. Will check nuclear stress test. (See above) Recommendation Anesthesia Recommendation Anesthesia recommendation: OPTIMIZED for anesthesia
== END 2025-05-08 19:00 | disposition home or self-care (01) ==
LOC: SDC 09-17 08:06
PROVIDERS: PCP Student in an Organized Health Care Education/Training Program; Referring Provider Surgery Trauma Surgery; Visit Provider Surgery Trauma Surgery
DX: Z01.818 Encounter for other preprocedural examination (principal); E11.42 Type 2 diabetes mellitus with diabetic polyneuropathy; I10 Essential (primary) hypertension
CPT/HCPCS: 36415; 80048; 85027

== ENCOUNTER → 2025-05-08 | Outpatient (CLI) | payer MEDICARE, SELFPAY ==
--- OUTSIDE RECORDS SUMMARY | 2025-05-08 07:18 | XMS RPT_ITS | CCD ---
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 Rishi Vasquez Primary Care Provider Dr. Rishi Vasquez Referring Provider Dr. Kwaku Moscoso Attending Provider Dr. Kwaku Moscoso Other Provider Roof TECHNICAL REPORT WRITER, YULY Tripathi Attending Provider Rishi Vasquez DO Primary Care Provider Dr. Rishi Vasquez Primary Care Provider Dr. Kwaku Moscoso Attending Provider Dr. Kwaku Moscoso Referring Provider Dr. Rishi Vasquez Referring Provider Rishi Vasquez DO Primary Care Provider Roof TECHNICAL REPORT WRITER, YULY Tripathi Attending Provider Dr. Risih Vasquez Primary Care Provider Dr. Kwaku Moscoso Attending Provider Dr. Kwaku Moscoso Referring Provider Dr. Rishi Vasquez Referring Provider Roof TECHNICAL REPORT WRITER, TECHNICAL REPORT WRITER-Andrés Tripathi Attending Provider Dr. Rishi Vasquez Primary Care Provider Dr. Rishi Vasquez Referring Provider Dr. Russell Clement Attending Provider Rishi Vasquez DO Primary Care Provider Pedro, Dr. Blackwell Primary Care Provider Dr. Brandon Membreno Referring Provider Pedro, Dr. Blackwell Primary Care Provider Dr. Russell Clement Attending Provider Dr. Brandon Membreno Referring Provider Pedro, Dr. Blackwell Primary Care Provider Dr. Rishi Vasquez Referring Provider Roof TECHNICAL REPORT WRITER, TECHNICAL REPORT WRITER-Andrés Tripathi Attending Provider Cedaniel, Dr. Kwaku Abraham Attending Provider Dr. Kwaku Moscoso Referring Provider Dr. Rishi Vasquez Primary Care Provider Dr. Rishi Vasquez Referring Provider Dr. Rishi Vasquez Primary Care Provider Dr. Rishi Vasquez Referring Provider Dr. Kwaku Moscoso Attending Provider Dr. Rishi Vasquez Primary Care Provider Dr. Rishi Vasquez Referring Provider Dr. Ciaran Jacobo Attending Provider Rishi Vasquez DO Primary Care Provider Dr. Elyssa Fierro Attending Provider Dmitry PROGRAMS DIRECTOR.Clary FLORES Unavailable Violeta PROGRAMS DIRECTOR.MARK, Dillon Unavailable Dr. Rishi Vasquez DO Primary Care Provider Vasquez DO, Dr. Blackwell Attending Provider Pedro DO, Dr. Blackwell Referring Provider [place] DPM, Dr. Taylor Attending Provider [place] DPM, Dr. Taylor Referring Provider Irene DPM, Dr. Sweeney Attending Provider Urbano LUNDBERG, Dr. Wells Attending Provider Jamal DPM, Dr. Wagoner Attending Provider Jamal DPM, Dr. Wagoner Referring Provider Irene DPM, Dr. Sweeney Referring Provider Rosita DO, Dr. Orellana Emergency Provider Shonda LUNDBERG, Dr. Maddie Lawrence Admit Provider Shonda LUNDBERG, Dr. Maddie Lawrence Attending Provider Shonda LUNDBERG, Dr. Maddie Lawrence Referring Provider Pedro EUCEDA, Dr. Blackwell Primary Care Provider Pedro EUCEDA, Dr. Blackwell Attending Provider Pedro EUCEDA, Dr. Blackwell Referring Provider Shonda LUNDBERG, Dr. Maddie Lawrence Other Provider Teto DPM, Dr. Sweeney Other Provider Chantal LUNDBERG, Dr. Mendez Other Provider Urbano LUNDBREG, Dr. Wells Other Provider Ke LUNDBERG, Dr. Villafana Attending Provider Kelly LUNDBERG, Dr. Ames Other Provider Ke LUNDBERG, Dr. Villafana Other Provider Abena Baxter Attending Provider Servando LUNDBERG, Dr. Phong Benítez Admit Provider Servando LUNDBERG, Dr. Phong Benítez Attending Provider Servando LUNDBERG, Dr. Phong Benítez Referring Provider Macarena VYAS, Abena Other Provider Servando LUNDBERG, Dr. Phong Benítez Other Provider Urbano LUNDBERG, Dr. Wells Referring Provider Pedro EUCEDA, Dr. Blackwell Primary Care Provider [phone] Pedro EUCEDA, Dr. Blackwell Attending Provider Pedro EUCEDA, Dr. Blackwell Referring Provider Haseeb DPM, Dr. Taylor Attending Provider Haseeb DPM, Dr. Taylor Referring Provider Pedro EUCEDA, Dr. Blackwell Primary Care Provider Pedro DO, Dr. Blackwell Attending Provider Pedro DO, Dr. Blackwell Referring Provider 1([facility] )[phone] Abena Baxter Referring Provider 1([facility])[phone] Pedro EUCEDA, Dr. Blackwell Primary Care Provider Teto STEVENSONM, Dr. Sweeney Attending Provider Víctor LUNDBERG, Dr. Wagoner Attending Provider Víctor LUNDBERG, Dr. Wagoner Referring Provider [phone] VASQUEZ, RISHI L Primary Care Unavailable VASQUEZ, RISHI L Referring Unavailable VASQUEZ, RISHI L Primary Care Unavailable VASQUEZ, RISHI L Primary Care Unavailable VASQUEZ, RISHI L Attending Unavailable CLARY ANDRES Referring Unavailabl e VASQUEZ, RISHI L Primary Care Unavailable VASQUEZ, RISHI L Referring Unavailable VASQUEZ, RISHI L Primary Care Unavailable VASQUEZ, RISHI L Primary Care Unavailable FOUZIA ESCOBEDO Attending Unavailable VASQUEZ, RISHI L Primary Care Unavailable YUMIKO WHITEHEAD Attending Unavailable VASQUEZ, RISHI L Primary Care Unavailable VASQUEZ, RISHI L Attending Unavailable Pedro EUCEDA, Dr. Blackwell Primary Care Provider [phone] [place] LUNDBERG, Dr. Wells Attending Provider 1([facility])[phone] Rubio TECHNICAL REPORT WRITER-CRick Attending Provider 1([facility])[phone] Pedro, Rishi Primary Care Unavailable Abena Fiore Attending Unavailable Fiore, Abena Referring Unavailable Vasquez, Rishi Primary Care Unavailable Brandon Membreno Referring Unavailable Brandon Membreno Attending Unavailable Vasquez, Rishi Attending Unavailable Vasquez, Rishi Referring Unavailable Vasquez, Rishi Primary Care Unavailable Vasquez, Rishi Primary Care Unavailable Kwaku Mendoza Consulting Unavailable Servando, Phong Chi Admitting Unavailable Servando, Phong Chi Referring Unavailable Servando, Phong Chi Attending Unavailable Irene, Patel Consulting Unavailable Fiore, Abena Consulting Unavailable Vasquez, Rishi Primary Care Unavailable [place], Russell Referring Unavailable [place], Russell Attending Unavailable Ciaran Berry Referring Unavailable Ciaran Berry Attending Unavailable Vasquez, Rishi Primary Care Unavailable Vasquez, Rishi Primary Care Unavailable Urbano, Russell Admitting Unavailable Urbano, Russell Attending Unavailable Vasquez, Rishi Primary Care Unavailable [place], Russell Admitting Unavailable Urbano, Russell Attending Unavailable Vasquez, Rishi Primary Care Unavailable Irene, Patel Referring Unavailable Irene Patel Attending Unavailable Vasquez, Rishi Primary Care Unavailable Curtis Franco Referring Unavailable PraktonVivians Attending Unavailable Vasquez, Rishi Primary Care Unavailable Servando, Phong Chi Attending Unavailable Servando, Phong Chi Referring Unavailable Vasquez, Rishi Primary Care Unavailable Ciaran Renee Referring Unavailable Ciaran Renee Attending Unavailable Vasquez, Rishi Primary Care Unavailable Vasquez, Rishi Attending Unavailable Vasquez, Rishi Referring Unavailable Vasquez, Rishi Attending Unavailable Vasquez, Rishi Primary Care Unavailable Vasquez, Rishi Referring Unavailable Vasquez, Rishi Attending Unavailable Vasquez, Rishi Primary Care Unavailable Vasquez, Rishi Referring Unavailable Vasquez, Rishi Primary Care Unavailable PraVivian mayorgas Referring Unavailable PraysonDonCurtis Attending Unavailable Vasquez, Rishi Primary Care Unavailable Vasquez, Rishi Attending Unavailable Vasquez, Rishi Referring Unavailable Vasquez, Rishi Primary Care Unavailable Vasquez, Rishi Referring Unavailable Vasquez, Rishi Attending Unavailable Vasquez, Rishi Primary Care Unavailable Brandon Membreno Attending Unavailable Brandon Membreno Referring Unavailable Patel Irene Attending Unavailable Vasquez, Rishi Primary Care Unavailable Vasquez, Rishi Primary Care Unavailable Irene, Patel Consulting Unavailable Maddie Merchant L Referring Unavailable Broderick Dempsey Attending Unavailable White, Maddie L Admitting Unavailable Tanphaichitr, Natthavat Consulting Unavaila ble [place], Russell Consulting Unavailable White, Maddie L Consulting Unavailable Kelly, Kwaku Consulting Unavailable Vasquez, Irshi Primary Care Unavailable Irene, Patel Consulting Unavailable Fiore, Abena Attending Unavailable White, Maddie L Admitting Unavailable White, Maddie L Referring Unavailable Tanphaichitr, Natthavat Consulting Unavaila ble [place], Russell Consulting Unavailable White, Maddie L Consulting Unavailable Kelly, Kwaku Consulting Unavailable Ke, Broderick Consulting Unavailable Vasquez, Rishi Attending Unavailable Vasquez, Rishi Primary Care Unavailable Vasquez, Rishi Referring Unavailable Ke, Broderick Attending Unavailable White, Maddie L Attending Unavailable Vasquez, Rishi Primary Care Unavailable Fiore, Abena Attending Unavailable Kelly, Kwaku Consulting Unavailable Servando, Phong Chi Admitting Unavailable Servando, Phong Chi Referring Unavailable Irene, Patel Consulting Unavailable Fiore, Abena Consulting Unavailable Servando, Phong Chi Consulting Unavailable Vasquez, Rishi Primary Care Unavailable [place], Russell Consulting Unavailable Rubano, Russell Referring Unavailable [place], Russell Attending Unavailable [place], Russell Attending Unavailable Vasquez, Rishi Primary Care Unavailable Fiore, Abena Referring Unavailable Urbano, Russell Attending Unavailable Urbano, Russell Attending Unavailable Brandon Membreno Referring Unavailable Vasquez, Rishi Primary Care Unavailable Vasquez, Rishi Primary Care Unavailable Fiore, Abena Attending Unavailable Vasquez, Rishi Referring Unavailable Vasquez, Rishi Primary Care Unavailable Rick Bergeron NP Attending Unavailable Vasquez, Rishi Referring Unavailable Vasquez, Rishi Primary Care Unavailable Vasquez, Rishi Attending Unavailable Vasquez, Rishi Referring Unavailable Vasquez, Rishi Primary Care Unavailable Vasquez, Rishi Attending Unavailable Vasquez, Rishi Referring Unavailable Vasquez, Rishi Primary Care Unavailable Vasquez, Rishi Referring Unavailable Vasquez, Rishi Attending Unavailable Vasquez, Rishi Referring Unavailable Vasquez, Rishi Attending Unavailable Vasquez, Rishi Primary Care Unavailable Vasquez, Rishi Primary Care Unavailable Vasquez, Rishi Referring Unavailable Vasquez, Rishi Attending Unavailable Vasquez, Rishi Primary Care Unavailable Vasquez, Rishi Attending Unavailable Vasquez, Rishi Referring Unavailable Vasquez, Rishi Primary Care Unavailable Kb, Jarret Referring Unavailable KbClover mcclured Attending Unavailable Vasquez, Rishi Primary Care Unavailable Vasquez, Rishi Referring Unavailable Vasquez, Rishi Attending Unavailable Fouzia Escobedo APRN.CNP Unavailable [phone] Allergies Allergy Classification Reported Allergen(s) Allergy Type Date of Onset Reaction(s) Facility Sulfonamides (antibiotic) (1 source) Sulfonamides (Antibiotic) Drug Allergy 3 Unknown [facility] (10 sources) Sulfonamides (Antibiotic) drug allergy 4 [facility] Work Phone: (20 sources) Sulfonamides (Antibiotic); Translations: [SULFA (SULFONAMIDE ANTIBIOTICS)] Drug Allergy 3 Unknown [facility] (20 sources) Sulfonamides (Antibiotic) Allergy to substance 2 Unknown [facility] Comment on above: doesn't remember/ al lergy noted as a child (1 source) Sulfonamides (Antibiotic) Drug allergy (disorder) 5 [facility] Repository Medications Current Medications Medication Drug Class(es) Dates Sig (Normalized) Sig (Original) acetaminophen 500 mg oral tablet (20 sources) Start: 03-17-2025 take 2 tablets by mouth every six hours as needed for pain Acetaminophen 500 mg Tablet Active 1000 mg PO EVERY 6 HOURS NEEDED as needed for Pain Score 1-10 0 March 17, 2025 12:00am Start: 03-11-2025 End: 03-17-2025 take 2 tablets by mouth every four hours as needed for pain Acetaminophen 325 mg Tablet Discontinued 650 mg PO EVERY 4 HOURS NEEDED as needed for Fever, pain -08/28 0 March 11, 2025 12:00am March 17, 2025 9:19pm Start: 12-29-2021 End: 03-07-2025 take 1 capsule by mouth once as needed for pain Acetaminophen (Tylenol) 325 mg capsule Discontinued 325 mg PO ONCE as needed for Pain December 29, 2021 1:00am March 07, 2025 4:02pm Start: 08-30-2017 TYLENOL CAPS a s needed ACETAMINOPHEN CAPS [id number] Kwaku Moscoso MD Start: 09-22-2016 End: 11-22-2016 TYLENOL CAPS as needed 09/22 ACETAMINOPHEN CAPS [id number] Espinoza Burns MA Start: 09-22-2016 TYLENOL CAPS a s needed ACETAMINOPHEN CAPS [id number] Espinoza Burns MA Start: 09-22-2016 End: 11-22-2016 TYLENOL CAPS as needed 09/22 ACETAMINOPHEN CAPS [id number] Espinoza Burns MA Start: 09-22-2016 TYLENOL CAPS a s needed ACETAMINOPHEN CAPS [id number] Espinoza Burns MA take 2 tablets by mo uth every six hours as needed acetaminophen (TYLENOL) 325 mg tablet Take 650 mg by mouth every 6 hours as needed. Active Comment on above: Take 650 mg by mouth every 6 hours as needed. amLODIPine 5 mg oral tablet (20 sources) Dihydropyridine Calcium Channel Diana Start: End: take 1 tablet by mouth once daily amLODIPine (NORVASC) 5 mg tablet Take 5 mg by mouth once daily. 03/17/2025 Active Start: 01-28-2021 End: 03-17-2025 take 1 tablet by mouth once daily Amlodipine 10 mg tablet Discontinued 10 mg PO DAILY December 25, 2024 4:45pm March 17, 2025 9:20pm Start: 01-27-2019 End: 10-05-2020 take 1 tablet by mouth once daily Amlodipine 10 mg tablet Discontinued 10 mg PO DAILY February 02, 2020 3:08pm May 20, 2020 1:15pm Start: 07-29-2018 End: 06-04-2024 take 1 tablet by mouth once daily Amlodipine 5 mg tablet Discontinued 5 mg PO DAILY July 29, 2018 11:15am January 27, 2019 11:55am Start: 01-13-2014 End: 07-29-2018 take 2 tablets by mouth once daily Amlodipine 5 MG tablet Discontinued 10 mg PO DAILY January 13, 2014 1:00am July 29, 2018 11:18am Start: 01-13-2014 End: 07-29-2018 take 10 mg by mouth once daily Amlodipine Discontinued 10 MG PO DAILY January 13, 2014 1:00am July 29, 2018 11:18am Start: 01-05-2014 take 1 tablet by paolo th once daily AMLODIPINE BESYLATE 5 MG TABS One tablet by mouth daily AMLODIPINE BESYLATE [id number] Carole Garber RN Start: 01-05-2014 take 1 tablet by paolo th once daily NORVASC 10 MG TABS One tablet by mouth daily AMLODIPINE BESYLATE [id number] Iar Lopez PA-C Comment on above: Take 1 tablet by paolo th once daily. ascorbic acid 500 mg oral tablet (20 sources) Vitamin C Start: 11-25-2020 take 2 tablets by mouth at lunch Ascorbic Acid (Vitamin C) 500 mg tablet Active 1000 mg PO WITH LUNCH November 25, 2020 10:32am Start: 11-25-2020 take 1000 mg by mouth at lunch Ascorbic Acid (Vitamin C) Active 1000 MG PO WITH LUNCH November 25, 2020 10:32am Start: 01-05-2014 take 1 tablet by mouth once da nhi ascorbic acid, vitamin C, (VITAMIN C) 500 mg tablet Take 1 tablet by mouth once daily. 03/02/2014 Active Comment on above: Take 1 tablet by paolo once daily. aspirin 81 mg delayed release oral tablet (20 sources) Platelet Aggregation Inhibitor, Nonsteroidal Anti-inflammatory Drug Start: 01-05-2014 take 1 tablet by mouth at bedtime Aspirin 81 MG tablet Active 81 mg PO AT BEDTIME January 13, 2014 1:00am Start: 01-05-2014 take 1 tablet by paolo th once daily ASPIRIN 81 MG TABS One tablet by mouth daily ASPIRIN [id number] Carole Garber RN Start: 06-30-2013 take 1 tablet by paolo th once daily at mealtime Aspirin 81 mg Tab Take 1 tablet by mouth once daily. Take with food. 30 tablet 11 06/30/2013 Active Comment on above: Take 1 tablet by paolo once daily. Take with food. Blood Pressure Test Kit-Medium kit (20 sources) Start: 09-02-2019 Blood Pressure Test Kit-Medium kit 1 Device once daily. Dx: Essential hypertension 1 Kit 09/02/2019 Active Start: 09-02-2019 Blood Pressure Test Kit-Medium kit 1 Device once daily. Dx: Essential hypertension 1 Kit 0 09/02/2019 Active Comment on above: 1 Device once daily. Dx: Essential hypertension calcium carbonate 1500 mg oral tablet (20 sources) Start: 2 take 1 tablet by mouth once daily Calcium Carbonate (Calcium 600) 600 mg calcium (1,500 mg) tablet Active 600 mg PO DAILY December 29, 2021 1:00am cephalexin 500 mg oral capsule (2 sources) Cephalosporin Antibacterial Start: 2 End: 2 take 1 capsule by mouth twice daily cephALEXin (KEFLEX) 500 mg capsule Take 1 capsule by mouth twice daily for 7 days. 14 capsule 0 09/23/2022 09/30/2022 Active Comment on above: Take 1 capsule by mo ut twice daily for 7 days. Cranberry Extract (20 sources) Non-Standardized Food Allergenic Extract, Non-Standardized Plant Allergenic Extract Start: 2 take 1 capsule by mouth at dinner Cranberry Extract 500 mg capsule Active 500 mg PO WITH DINNER August 08, 2022 9:41am Start: 08-08-2022 take 500 mg by mouth at dinner Cranberry Extract Active 500 MG PO WITH DINNER August 08, 2022 8:41am Start: 08-08-2022 take 500 mg by mouth at dinner Cranberry Extract Active 500 MG PO WITH DINNER August 08, 2022 9:41am Start: 10-05-2020 End: 08-08-2022 take 1 capsule by mouth at dinner Cranberry Extract 500 mg capsule Discontinued 300 mg PO WITH DINNER October 05, 2020 2:14pm August 08, 2022 9:43am Start: 10-05-2020 End: 08-08-2022 take 300 mg by mouth at dinner Cranberry Extract Disco ntinued 300 MG PO WITH DINNER October 05, 2020 1:14pm August 08, 2022 8:43am Start: 10-05-2020 End: 08-08-2022 take 300 mg by mouth at dinner Cranberry Extract Disco ntinued 300 MG PO WITH DINNER October 05, 2020 2:14pm August 08, 2022 9:43am Start: 10-05-2020 take 300 mg by mouth at dinner Cranberry Extract Active 300 MG PO WITH DINNER October 05, 2020 2:14pm Start: 06-29-2016 End: 10-05-2020 take 500 mg by mouth at dinner Cranberry Extract Disco ntinued 500 MG PO WITH DINNER June 29, 2016 1:08pm October 05, 2020 2:18pm Start: 06-29-2016 End: 10-05-2020 take 1 capsule by mouth at dinner Cranberry Extract 500 MG capsule Discontinued 500 mg PO WITH DINNER June 29, 2016 12:00am October 05, 2020 2:18pm Start: 06-29-2016 End: 10-05-2020 take 500 mg by mouth at dinner Cranberry Extract Disco ntinued 500 MG PO WITH DINNER June 28, 2016 11:00pm October 05, 2020 1:18pm Start: 06-29-2016 End: 10-05-2020 take 500 mg by mouth at dinner Cranberry Extract Disco ntinued 500 MG PO WITH DINNER June 29, 2016 12:00am October 05, 2020 2:18pm Start: 12-29-2014 CRANBERRY CAPS Cranberry Extract daily CRANBERRY CAPS [id number] Brandon Ch MD Start: 11-25-2014 Cranberry Extr act 300 mg tab Take by mouth. 0 11/25/2014 Active Comment on above: Take by mouth. docusate sodium 100 mg oral capsule (20 sources) Start: 12-29-2021 End: 05-07-2025 take 1 capsule by mouth twice daily as needed for constipation Docusate Sodium 100 mg capsule Active 100 mg PO TWICE A DAY as needed for constipation May 07, 2025 9:30am Start: 05-20-2020 End: 10-05-2020 take 1 capsule by mouth three times daily Docusate Sodium 100 MG capsule Discontinued 100 mg PO THREE TIMES A DAY May 20, 2020 12:00am October 05, 2020 2:17pm Comment on above: Take 100 mg by mouth twice daily. ferrous sulfate 325 mg oral tablet (20 sources) Start: 08-15-2018 take 1 tablet by mouth once daily Ferrous Sulfate 325 MG tablet Active 325 mg PO DAILY August 15, 2018 12:00am Start: 08-30-2017 take 1 tablet by paolo th twice daily FERROUS SULFATE 325 (65 Fe) MG TABS One tablet by mouth twice daily FERROUS SULFATE [id number] Kwaku Moscoso MD Comment on above: Take 325 mg by mouth daily with breakfast. 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 60 tablet 2 04/30/2025 Active Start: 04-30-2025 End: 04-30-2025 take 1 tablet by mouth once daily glipiZIDE (GLUCOTROL XL) 10mg 24 hr tablet Take 1 tablet by mouth once daily. 30 tablet 2 04/30/2025 04/30/2025 Discontinued Start: 04-10-2025 End: 10-07-2025 take 1 tablet by mouth once daily Glipizide 5 mg tablet extended release 24hr Active 5 mg PO daily May 07, 2025 12:00am lactobacillus acidophilus 600 mg oral capsule (7 sources) Start: 03-07-2025 take 1 capsule by mouth once daily Lactobacillus Acidophilus (Acidophilus) capsule Active 600 mg PO daily March 07, 2025 12:00am Lactobacillus Combination No.9 (Adult 50 Plus Probiotic) 4 billion cell capsule (20 sources) Start: 10-05-2020 take 4 capsules by mouth once daily Lactobacillus Combination No.9 (Adult 50 Plus Probiotic) 4 billion cell capsule Active 4000 MMU CELLS PO DAILY October 05, 2020 2:16pm administer with a meal Start: 10-05-2020 End: 03-07-2025 take 4 capsules by mouth once daily Lactobacillus Combination No.9 (Adult 50 Plus Probiotic) 4 billion cell capsule Discontinued 4000 NMA PO DAILY October 05, 2020 1:00am March 07, 2025 4:03pm administer with a meal Start: 10-05-2020 take 4 capsules by m outh once daily Lactobacillus Combination No.9 (Adult 50 Plus Probiotic) 4 billion cell capsule Active 4000 NMA PO DAILY October 05, 2020 1:00am administer with a meal Start: 10-05-2020 take 4 capsules by m outh once daily Lactobacillus Combination No.9 (Adult 50 Plus Probiotic) 4 billion cell capsule Active 4000 MMU CELLS PO DAILY October 05, 2020 12:00am administer with a meal Start: 10-05-2020 take 4 capsules by m outh once daily Lactobacillus Combination No.9 (Adult 50 Plus Probiotic) 4 billion cell capsule Active 4000 MMU CELLS PO DAILY October 05, 2020 1:00am administer with a meal 24 hr metoprolol succinate 25 mg extended release oral tablet (20 sources) beta-Adrenergic Diana Start: 03-17-2025 End: 03-27-2025 take 0.5 tablet by mouth once daily metoprolol succinate ER (TOPROL XL) 25 mg 24 hr tablet Take 0.5 tablets by mouth once daily. 45 tablet 03/27/2025 Active Start: 03-17-2025 End: 04-15-2025 take 2 tablets by mouth once daily Metoprolol Succinate 25 mg tablet extended release 24 hr Active 12.5 mg PO DAILY April 15, 2025 2:17pm Start: 02-07-2022 End: 08-08-2022 take 1 tablet by mouth every twenty-four hours in the evening Metoprolol Succinate 50 mg tablet extended release 24 hr Discontinued 50 mg PO .PM February 07, 2022 9:39am August 08, 2022 9:43am Start: 01-12-2014 End: 03-27-2025 take 1 tablet by mouth once daily Metoprolol Succinate 50 mg tablet extended release 24 hr Discontinued 50 mg PO DAILY October 23, 2024 4:55pm March 17, 2025 9:21pm Start: 01-12-2014 take 1 tablet by paolo th once daily TOPROL XL 50 MG [id number] (ER) One tablet by mouth daily METOPROLOL SUCCINATE [id number] Brandon Ch MD Start: 01-05-2014 take 1 tablet by paolo th once daily METOPROLOL SUCCINATE ER 25 MG [id number] One tablet by mouth daily METOPROLOL SUCCINATE [id number] Carole Garber RN Comment on above: Take 1 tablet by paolo th once daily. Moqdmhqb-Zrjy-Wmb-F olic Acid 18-0.4 mg tab (20 sources) Start: 03-02-2014 take 1 tablet by mouth once daily Bkiwyaui-Lbfj-Dgi- Folic Acid 18-0.4 mg tab Take 1 tablet by mouth once daily. 03/02/2014 Active Start: 03-02-2014 take 1 tablet by paolo th once daily Nxiflxzy-Uojt-Aug-Folic Acid 18-0.4 mg t ab Take 1 tablet by mouth once daily. 0 03/02/2014 Active Comment on above: Take 1 tablet by paolo th once daily. Multivitamin With Folic Acid (20 sources) Start: 01-13-2014 take 1 tablet by mouth once daily Multivitamin With Folic Acid Active 1 TABLET PO DAILY January 13, 2014 10:51am Start: 01-13-2014 take 1 tablet by paolo th once daily Multivitamin With Folic Acid Active 1 TABLET PO DAILY January 13, 2014 12:00am Start: 01-13-2014 take 1 tablet by paolo th once daily Multivitamin With Folic Acid Active 1 TABLET PO DAILY January 13, 2014 1:00am Multivitamin With Folic Acid 1 TABLET tablet (10 sources) Start: 01-13-2014 take 1 tablet by mouth once daily Multivitamin With Folic Acid 1 TABLET tablet Active 1 {tbl} PO DAILY January 13, 2014 1:00am nitrofurantoin, macrocrystals 25 mg / nitrofurantoin, monohydrate 75 mg oral capsule (1 source) Nitrofuran Antibacterial Start: 06-04-2023 End: 06-11-2023 take 1 capsule by mouth twice daily at mealtime nitrofurantoin monohydrate and macrocrystal (MACROBID) 100 mg capsule Indications: Dysuria , Acute cystitis with hematuria Take 1 capsule by mouth twice daily with meals for 7 days. 14 capsule 0 06/04/2023 06/11/2023 Active Comment on above: Take 1 capsule by mo [facility] twice daily with meals for 7 days. nystatin 100 unt/mg topical powder (8 sources) Polyene Antifungal Start: 03-17-2025 End: 05-07-2025 Nystatin (Nyamy) 100,000 unit/gram powder Active 1 NMA TOPICAL TWICE A DAY as needed May 07, 2025 9:30am Please contact the information source for Protocol details. omega-3 fatty acids 1,000 mg cap (20 sources) Start: 02-23-2014 take 1 capsule by mouth once daily omega-3 fatty acids 1,000 mg cap Take 1 capsule by mouth once daily. 02/23/2014 Active Start: 02-23-2014 take 1 capsule by mo [facility] once daily omega-3 fatty acids 1,000 mg cap Take 1 capsule by mouth once daily. 0 02/23/2014 Active Comment on above: Take 1 capsule by mo [facility] once daily. [place]-3 Fatty Acids-Fish Oil (20 sources) Start: 06-29-2016 [place]-3 Fatty Acids-Fish Oil Active 1 EACH PO DAILY June 29, 2016 1:08pm Start: 06-29-2016 [place]-3 Fatty Acids-Fish Oil Active 1 EACH PO DAILY June 28, 2016 11:00pm Start: 06-29-2016 [place]-3 Fatty Acids-Fish Oil Active 1 EACH PO DAILY June 29, 2016 12:00am [place]-3 Fatty Acids-Fish Oil 1 EACH capsule (10 sources) Start: 06-29-2016 [place]-3 Fatty Acids-Fish Oil 1 EACH capsule Active 1 NMA PO DAILY June 29, 2016 12:00am pregabalin 100 mg oral capsule (7 sources) Start: 03-07-2025 take 1 capsule by mouth three times daily Pregabalin 100 mg capsule Active 100 mg PO THREE TIMES A DAY March 07, 2025 12:00am Saccharomyces boulardii (20 sources) take 1 capsule by mouth once daily SACCHAROMYCES BOULARDII (PROBIOTIC, S.BOULARDII, ORAL) Indications: Multinodular thyroid Take 1 capsule by mouth once daily. Active take 1 capsule by mouth once brandon ly SACCHAROMYCES BOULARDII (PROBIOTIC, S.BOULARDII, ORAL) Indications: Multinodular thyroid Take 1 capsule by mouth once daily. 0 Active Comment on above: Take 1 capsule by mo ut once daily. simvastatin 20 mg oral tablet (20 sources) HMG-CoA Reductase Inhibitor Start: take 1 tablet by mouth at bedtime Simvastatin 20 mg tablet Active 20 mg PO AT BEDTIME March 23, 2025 4:13pm Start: 01-22-2015 End: 03-23-2025 take 1 tablet by mouth once daily at bedtime simvastatin (ZOCOR) 40 mg tablet Indications: Dyslipidemia (high LDL; low HDL) Take 1 tablet by mouth daily at bedtime. 90 tablet 3 12/05/2024 Active Comment on above: Take 1 tablet by paolo th daily at bedtime. Completed/Discontinued Medications Medication Drug Class(es) Dates Sig (Normalized) Sig (Original) acetaminophen 325 mg / HYDROcodone bitartrate 5 mg oral tablet (20 sources) Opioid Agonist Start: 05-03-2017 End: 07-29-2018 Hydrocodone-Acetami nophen 1 EACH tablet Discontinued 1 - 2 {tbl} PO EVERY 6 HOURS NEEDED as needed for Pain May 03, 2017 12:00am July 29, 2018 11:17am Start: 05-03-2017 End: 07-29-2018 take 1 tablet by mouth every six hours as needed Hydrocodone-Acetaminophen Discontinued 1 - 2 TABLET PO EVERY 6 HOURS NEEDED May 03, 2017 12:00am July 29, 2018 11:17am ascorbic acid 226 mg / cuprous oxide 0.8 mg / dl-alpha tocopheryl acetate 200 unt / lutein 5 mg / zinc oxide 34.8 mg oral capsule (20 sources) Vitamin C Start: 07-29-2021 End: 03-07-2025 take 1 capsule by mouth twice daily Vit U-C-Hmkxtd-Zinc-Lutein (Preservision Lutein) 226 mg-200 unit -5 mg-0.8 mg Capsule Discontinued 1 NMA PO TWICE A DAY July 29, 2021 12:00am March 07, 2025 4:03pm calcium (2 sources) Phosphate Binder, Calcium Start: 08-30-2017 take 1 tablet by mouth twice daily CALCIUM 600 MG TABS One tablet by mouth twice daily CALCIUM [id number] Kwaku Moscoso MD calcium ascorbate 500 mg oral tablet (20 sources) Start: 01-13-2014 End: 11-25-2020 take 1 tablet by mouth at lunch Ascorbic Acid (Vitamin C) 500 MG tablet Discontinued 500 mg PO WITH LUNCH January 13, 2014 1:00am November 25, 2020 10:32am cefdinir 300 mg oral capsule (17 sources) Cephalosporin Antibacterial Start: 03-11-2025 End: 05-07-2025 take 1 capsule by mouth twice daily Cefdinir 300 mg Capsule Discontinued 300 mg PO TWICE A DAY 38 March 17, 2025 12:00am May 07, 2025 9:29am ceftaroline fosamil 400 mg injection (10 sources) Cephalosporin Antibacterial End: 01-04-2017 TEFLARO 400 MG SOLR q 12 hrs CEFTAROLINE FOSAMIL [id number] Shaina Serna LPN ceftaroline fosamil 600 mg injection (20 sources) Start: 11-15-2016 End: 07-23-2018 take 400 mg intravenously every twelve hours Ceftaroline Fosamil 600 MG/20 ML recon soln Discontinued 400 mg IV EVERY 12 HOURS November 18, 2016 12:48pm July 23, 2018 6:05pm End: 01-04-2017 TEFLARO 400 MG SOLR q 12 hrs CEFTAROLINE FOSAMIL [id number] Espinoza Burns MA cholecalciferol 0.05 mg oral capsule (20 sources) Vitamin D Start: 08-08-2022 End: 03-07-2025 take 1 capsule by mouth once daily Cholecalciferol (Vitamin D3) 50 mcg (2,000 unit) capsule Discontinued 2000 U PO DAILY August 08, 2022 9:41am March 07, 2025 4:02pm Start: 10-05-2020 End: 08-08-2022 take 1 capsule by mouth once daily Cholecalciferol (Vitamin D3) 50 mcg (2,000 unit) capsule Discontinued 1000 U PO DAILY October 05, 2020 2:17pm August 08, 2022 9:43am Start: 05-20-2020 End: 10-05-2020 take 1 capsule by mouth once daily Cholecalciferol (Vitamin D3) 2,000 UNIT capsule Discontinued 2000 U PO DAILY May 20, 2020 12:00am October 05, 2020 2:18pm take 1 capsule by mo [facility] once daily Cholecalciferol, Vitamin D3, 25 mcg (1,000 unit) cap Take 1,000 Units by mouth once daily. Active Comment on above: Take 1,000 Units by mouth once daily. clindamycin 150 mg oral capsule (20 sources) Lincosamide Antibacterial Start: 11-15-20 16 End: 07-23-20 take 2 capsules by mouth three times daily Clindamycin Hcl 150 MG capsule Discontinued 300 mg PO THREE TIMES A DAY November 18, 2016 12:48pm July 23, 2018 6:05pm take w/food Start: 11-15-2016 End: 07-23-2018 take 300 mg by mouth three times daily Clindamycin Hcl Discontinued 300 MG PO THREE TIMES A DAY 120 November 18, 2016 12:48pm July 23, 2018 6:05pm take w/food clopidogrel 75 mg oral tablet (20 sources) [id number] Platelet Inhibitor Start: 12-29-2014 End: 10-23-2024 take 1 tablet by mouth once daily Clopidogrel 75 mg tablet Discontinued 75 mg PO DAILY November 01, 2023 10:44am October 23, 2024 4:56pm Start: 01-14-2014 End: 06-12-2014 take 1 tablet by mouth once daily CLOPIDOGREL BISULFATE 75 MG TABS One tablet by mouth daily CLOPIDOGREL BISULFATE [id number] Brandon Ch MD Comment on above: Take 75 mg by mouth once daily. clotrimazole 10 mg oral lozenge (20 sources) Azole Antifungal Start: 09-20-2016 End: 11-22-2016 CLOTRIMAZOLE 10 MG LOZG 1 tab 5 x a day CLOTRIMAZOLE [id number] Espinoza Burns MA DOCUSATE SODIUM CAPS (10 sources) Histamine-1 Receptor Antagonist, Nonsteroidal Anti-inflammatory Drug Start: 09-22-2016 STOOL SOFTENER CAPS twice daily DOCUSATE SODIUM CAPS [id number] Espinoza S Grant ALFONSO Start: 09-22-2016 End: 11-22-2016 STOOL SOFTENER CAPS twice da nhi DOCUSATE SODIUM CAPS [id number] Espinoza S Grant ALFONSO Start: 09-22-2016 STOOL SOFTENER CAPS twice daily DOCUSATE SODIUM CAPS [id number] Espinoza S Grant ALFONSO Start: 09-22-2016 End: 11-22-2016 STOOL SOFTENER CAPS twice da nhi DOCUSATE SODIUM CAPS [id number] Espinoza S Grant ALFONSO DOCUSATE SODIUM CAPS (10 sources) Start: 09-22-2016 End: 11-22-2016 STOOL SOFTENER CAPS twice da nhi DOCUSATE SODIUM CAPS [id number] Espinoza S Grant ALFONSO Start: 09-22-2016 STOOL SOFTENER CAPS twice daily DOCUSATE SODIUM CAPS [id number] Espinoza S Grant ALFONSO doxycycline monohydrate 100 mg oral capsule (20 sources) Tetracycline-class Drug Start: 03-11-2025 End: 05-07-2025 take 1 capsule by mouth twice daily Doxycycline Monohydrate 100 mg Capsule Discontinued 100 mg PO TWICE A DAY 38 March 17, 2025 12:00am May 07, 2025 9:30am Start: 01-02-2025 End: 03-11-2025 take 1 capsule by mouth twice daily Doxycycline Hyclate 100 mg capsule Discontinued 100 mg PO TWICE A DAY February 19, 2025 12:00am March 11, 2025 12:13pm Start: 02-14-2017 End: 06-11-2017 take 1 tablet by mouth twice daily DOXYCYCLINE HYCLATE 100 MG CAPS One tablet by mouth twice daily DOXYCYCLINE HYCLATE [id number] Marly Patino MD estradiol 0.1 mg/ml vaginal cream (20 sources) Estrogen Start: 10-06-2022 End: 04-30-2025 estradiol (ESTRACE) 0.01 % (0.1 mg/gram) vaginal cream Indications: Atrophic vaginitis Use 1 g vaginally two times a week. 42.5 g 1 10/06/2022 04/30/2025 Discontinued (Discontinued by Patient) Start: 10-31-2017 estradiol (EST RACE) 0.01 % (0.1 mg/gram) vaginal cream Indications: Atrophic vaginitis Use 1 g vaginally twice a week. 1 Tube 3 10/31/2017 Active Start: 05-31-2016 End: 06-29-2022 Estradiol 42.5 GM cream Disc ontinued 1 NMA VAGINAL SUTU as needed for VAGINAL HEALTH May 31, 2016 12:00am June 29, 2022 9:36am Start: 05-25-2015 End: 06-29-2022 Estradiol Discontinued 1 DOS E VAGINAL SUTU May 31, 2016 12:00am June 29, 2022 9:36am Start: 05-25-2015 ESTRACE 0.1 MG /GM CREA Take as directed ESTRADIOL [id number] Brandon Ch MD Start: 05-25-2015 ESTRACE 0.1 MG /GM CREA Take as directed ESTRADIOL [id number] Brandon Ch MD Comment on above: Use 1 g vaginally tw ice a week. Use 1 g vaginally tw o times a week. fish oil (5 sources) Start: 09-20-2016 take 1 tablet by mouth once daily OMEGA-3 FISH OIL 300 MG CAPS One tablet by mouth daily OMEGA-3 FATTY ACIDS [id number] Meka Jones Start: 09-20-2016 take 1 tablet by paolo th once daily [place]MEGA-3 FISH OIL 300 MG CAPS One tablet by mouth daily OMEGA-3 FATTY ACIDS [id number] Meka Jones gabapentin 600 mg oral tablet (20 sources) Anti-epileptic Agent Start: 12-08-2021 End: 03-07-2025 take 1 tablet by mouth three times daily Gabapentin 600 mg tablet Discontinued 600 mg PO THREE TIMES A DAY April 20, 2023 8:54am March 07, 2025 3:59pm Start: 01-05-2014 End: 08-08-2022 take 1 capsule by mouth three times daily Gabapentin 300 MG capsule Discontinued 300 mg PO THREE TIMES A DAY January 13, 2014 1:00am August 08, 2022 9:39am Comment on above: Take 1 tablet by paolo th three times daily for 30 days. TAKE 1 TABLET BY PAOLO TH THREE TIMES DAILY Take 1 tablet by paolo th three times a day for 120 days. glimepiride 4 mg oral tablet (20 sources) Sulfonylurea Start: End: take 1 tablet by mouth once daily Glimepiride 4 mg tablet Discontinued 4 mg PO DAILY March 07, 2025 12:00am May 07, 2025 9:29am Start: 03-24-2024 End: 06-04-2024 take 1 tablet by mouth once daily at breakfast glimepiride (AMARYL) 4 mg tablet Take 1 tablet by mouth daily with breakfast. 90 tablet 3 06/04/2024 Active Start: 04-20-2023 End: 03-07-2025 take 2 tablets by mouth once daily Glimepiride 2 mg tablet Discontinued 4 mg PO DAILY April 20, 2023 8:54am March 07, 2025 4:02pm Start: 04-20-2023 take 4 mg by mouth once daily Glimepiride Active 4 MG PO DAILY April 20, 2023 8:54am Start: 01-22-2023 End: 03-22-2024 take 1 tablet by mouth once daily at breakfast glimepiride (AMARYL) 4 mg tablet Take 1 tablet by mouth daily with breakfast. 30 tablet 11 01/22/2023 03/22/2024 Discontinued Start: 07-29-2018 End: 04-20-2023 take 1 tablet by mouth twice daily Glimepiride 2 mg tablet Discontinued 2 mg PO TWICE A DAY July 29, 2018 11:17am April 20, 2023 8:56am Start: 01-05-2014 End: 07-29-2018 take 1 tablet by mouth once daily Glimepiride 2 MG tablet Discontinued 2 mg PO DAILY January 13, 2014 1:00am July 29, 2018 11:18am Comment on above: Take 1 tablet by paolo th twice daily with meals. Take 1 tablet by paolo th daily with breakfast. hydroCHLOROthiazide 25 mg oral tablet (20 sources) Thiazide Diuretic Start: 016 End: 025 take 1 tablet by mouth once daily Hydrochlorothiazide 25 MG tablet Discontinued 25 mg PO DAILY November 14, 2016 1:00am February 07, 2022 9:40am Start: 01-05-2014 End: 09-20-2016 take 1 tablet by mouth once daily Hydrochlorothiazide 25 MG tablet Discontinued 25 mg PO DAILY June 29, 2016 12:00am September 05, 2016 4:48pm Start: 01-05-2014 take 2 tablets by mo uth once daily HYDROCHLOROTHIAZIDE 12.5 MG TABS Two tablets by mouth daily HYDROCHLOROTHIAZIDE [id number] Carole Garber RN Comment on above: Take 1 tablet by paolo th once daily. 3 ml insulin lispro 100 unt/ml pen injector (6 sources) Insulin Analog Start: 5 End: 5 Insulin Lispro (Humalog Kwikpen Insulin) 100 unit/mL Insulin Pen Discontinued 0 U SC BEFORE MEALS AND AT BEDTIME 0 March 11, 2025 12:00am March 17, 2025 9:21pm Please contact the information source for Protocol details. LACTOBACILLUS CAPS (2 sources) Start: 7 take 1 tablet by mouth once daily ACIDOPHILUS CAPS 600 mg. One tablet by mouth daily LACTOBACILLUS CAPS [id number] Kwaku Moscoso MD LACTOBACILLUS CAPS (20 sources) Start: 6 ACIDOPHILUS/PECTIN CAPS 1 tab every night LACTOBACILLUS CAPS [id number] Meka Jones Start: 09-20-2016 End: 11-22-2016 ACIDOPHILUS/PECTIN CAPS 1 ta b every night LACTOBACILLUS CAPS [id number] Espinoza Burns MA Start: 09-20-2016 End: 11-22-2016 ACIDOPHILUS/PECTIN CAPS 1 ta b every night LACTOBACILLUS CAPS [id number] Espinoza Burns MA Start: 09-20-2016 ACIDOPHILUS/PE CTIN CAPS 1 tab every night LACTOBACILLUS CAPS [id number] Meka Stallings Pozworski Start: 07-11-2016 End: 08-31-2016 take 1 tablet by mouth twice daily Acidophilus-Pectin, [place] 1 EACH tablet Discontinued 1 NMA PO TWICE A DAY July 11, 2016 12:00am August 31, 2016 5:49pm Start: 07-11-2016 End: 08-31-2016 Acidophilus-Pectin, [place] D iscontinued 1 EACH PO TWICE A DAY July 11, 2016 12:00am August 31, 2016 5:49pm levoFLOXacin 500 mg oral tablet (20 sources) Quinolone Antimicrobial Start: 06-29-2016 End: 09-05-2016 take 1 tablet by mouth once daily Levofloxacin 500 MG tablet Discontinued 500 mg PO DAILY July 11, 2016 8:13am September 05, 2016 4:46pm linezolid 600 mg oral tablet (20 sources) Oxazolidinone Antibacterial Start: 01-08-2017 End: 07-29-2018 take 1 tablet by mouth twice daily Linezolid 600 MG tablet Discontinued 600 mg PO TWICE A DAY April 27, 2017 12:00am July 29, 2018 11:17am lisinopril 20 mg oral tablet (20 sources) Angiotensin Converting Enzyme Inhibitor Start: 12-05-2023 End: 03-27-2025 take 1 tablet by mouth once daily Lisinopril 20 mg tablet Discontinued 20 mg PO DAILY March 07, 2025 12:00am March 17, 2025 9:21pm On Hold: Hold for 1 week until 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 90 tablet 3 12/05/2022 Active Start: 01-05-2014 End: 03-07-2025 take 1 tablet by mouth once daily Lisinopril 40 MG tablet Discontinued 40 mg PO DAILY January 13, 2014 1:00am February 07, 2022 9:40am Comment on above: Take 1 tablet by paolo th once daily. metFORMIN hydrochloride 500 mg oral tablet (20 sources) Biguanide Start: 2 End: 04-23-202 5 take 1 tablet by mouth twice daily Metformin 500 mg tablet Discontinued 500 mg PO TWICE A DAY June 29, 2022 9:37am March 11, 2025 12:15pm Start: 07-29-2018 End: 06-29-2022 take 1 tablet by mouth once daily Metformin 500 mg tablet Discontinued 500 mg PO DAILY October 05, 2020 1:00am June 29, 2022 9:37am Start: 01-05-2014 take 1 tablet by paolo th twice daily METFORMIN HCL 500 MG TABS One tablet by mouth twice daily METFORMIN HCL [id number] Kwaku Moscoso MD Start: 01-05-2014 End: 07-29-2018 take 1 tablet by mouth twice daily at mealtime Metformin 1,000 MG tablet Discontinued 1000 mg PO TWICE DAILY WITH MEALS January 13, 2014 1:00am July 29, 2018 11:17am Comment on above: Take 1 tablet by paolo th twice daily with meals. Take 1 tablet by paolo th daily with breakfast. metroNIDAZOLE 500 mg oral tablet (17 sources) Nitroimidazole Antimicrobial Start: 03-11-20 End: 05-07-20 take 1 tablet by mouth three times daily Metronidazole 500 mg Tablet Discontinued 500 mg PO THREE TIMES A DAY 57 March 17, 2025 12:00am May 07, 2025 9:30am MULTIPLE VITAMIN (10 sources) Start: 01-05-20 14 take 1 tablet by mouth once daily MULTIVITAMINS TABS One tablet by mouth daily MULTIPLE VITAMIN Carole Garber RN Start: 01-05-2014 take 1 tablet by paolo th once daily MULTIVITAMINS TABS One tablet by mouth daily MULTIPLE VITAMIN Carole Garber RN Iqdsdbov-Ihiz-Jaw-Folic Acid (CENTRUM COMPLETE) 18-0.4 mg tab (12 sources) Start: 03-02-2014 take 1 tablet by mouth once daily Kewlijpn-Mizr-Ycl-Folic Acid (CENTRUM COMPLETE) 18-0.4 mg tab Take 1 tablet by mouth once daily. 0 03/02/2014 Active Comment on above: Take 1 tablet by paolo th once daily. naproxen sodium 220 mg oral tablet (20 sources) Nonsteroidal Anti-inflammat ory Drug Start: 01-05-2014 End: 12-29-2014 ALEVE 220 MG TABS as needed NAPROXEN SODIUM [id number] Carole Garber RN nitroglycerin 0.4 mg sublingual tablet (10 sources) Nitrate Vasodilator Start: 01-05-2014 NITROSTAT 0.4 MG SUBL 1 tablet under tongue every 5 min up to 3 X NITROGLYCERIN [id number] Carole Garber RN OMEGA-3 FATTY ACIDS (5 sources) Start: 09-20-2016 take 1 tablet by mouth once daily OMEGA-3 FISH OIL 300 MG CAPS One tablet by mouth daily OMEGA-3 FATTY ACIDS [id number] Meka Jones polysaccharide iron complex 150 mg oral capsule (12 sources) Start: 09-20-2016 End: 08-30-2017 take 1 tablet by mouth once daily FERREX 150 150 MG CAPS One tablet by mouth daily POLYSACCHARIDE IRON COMPLEX [id number] Kwaku Moscoso MD Start: 09-20-2016 take 1 tablet by paolo th once daily FERREX 150 150 MG CAPS One tablet by mouth daily POLYSACCHARIDE IRON COMPLEX [id number] Meka Jones pravastatin sodium 20 mg oral tablet (20 sources) HMG-CoA Reductase Inhibitor Start: 01-05-2014 End: 01-22-2015 take 1 tablet by mouth once daily PRAVASTATIN SODIUM 20 MG TABS One tablet by mouth daily PRAVASTATIN SODIUM [id number] Carole Garber RN senokot-s (2 sources) Start: 08-30-2017 take 1 tablet by mouth twice daily STOOL SOFTENER 100 MG TABS One tablet by mouth twice daily DOCUSATE SODIUM [id number] Kwaku Moscoso MD vancomycin 50 mg/ml injectable solution (20 sources) Glycopeptide Antibacterial Start: 09-20-2016 End: 11-22-2016 take 1000 mg intravenous route every twenty-four hours VANCOMYCIN HCL 1000 MG SOLR IV Q24 hours for 38 days VANCOMYCIN HCL [id number] Meka Jones Problems Active Problems Problem Classification Problem Date Documented Da te Episodic/Chronic Acquired foot deformities (20 sources) Acquired hallux valgus; Translations: [Hallux valgus (acquired), right foot] 02-28-2019 Chronic Acquired foot deformities (20 sources) Hammer toe; Translations: [Other hammer toe(s) (acquired), left foot] 02-28-2019 Chronic Acquired foot deformities (20 sources) Deformity of toe; Translations: [Acquired deformities of toe(s), unspecified, unspecified foot] 05-28-2020 Episodic Acute and unspecified renal failure (20 sources) Acute renal failure syndrome; Translations: [Acute kidney failure, unspecified] Onset: 5 03-07-2025 Episodic Adjustment disorders (20 sources) Reactive depression (situational); Translations: [Adjustment disorder with depressed mood] Onset: 7 01-29-2017 Chronic Bacterial infection; unspecified site (20 sources) Methicillin resistant Staphylococcus aureus infection; Translations: [Cutaneous actinomycosis] Onset: 7 Resolved: 7 11-23-2016 Episodic Comment on above: A49.02 Chronic kidney disease (20 sources) Chronic kidney disease stage 3; Translations: [Stage 3 chronic kidney disease] Onset: 6 10-05-2016 Chronic Comment on above: ~2015 Chronic kidney disease (2 sources) Chronic kidney disease; Translations: [Stage 3 chronic kidney disease, unspecified whether stage 3a or 3b CKD ([facility] [place])] Onset: 7 Chronic ulcer of skin (20 sources) Pressure ulcer stage 4; Translations: [Chronic ulcer of toe] Onset: 6 09-22-2016 Chronic Comment on above: lateral second toe lateral and plantar third toe L97.519nonhealing di abetic ulcer dorsum right foot by big toe L97.529nonhealing di abetic ulcer left medial foot at first metatarsal head big toenonhealing infected diabetic ulcer left lateral foot at metatarsal head small toe with extension onto dorsum of foot L97.819nonhealing di abetic ulcer right anterior leg Coronary atherosclerosis and other heart disease (20 sources) Atherosclerotic heart disease of [place] coronary artery without angina pectoris; Translations: [Coronary atherosclerosis] Onset: 4 05-30-2017 Chronic Comment on above: The patient has know n atherosclerotic coronary disease totally occluded right coronary artery. She also has peripheral vascular disease with a left carotid bruit and a 50 to 79% stenosis documented on ultrasound in May 2023. She denies any TIA or CVA type symptoms. The patient also has a history of lower extremity peripheral vascular disease. 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 Deficiency and other anemia (12 sources) Iron deficiency anemia; Translations: [Iron deficiency anemia, unspecified] 03-11-2025 Episodic Diabetes mellitus with complications (20 sources) Diabetic foot ulcer; Translations: [Type 2 diabetes mellitus with foot ulcer] Onset: 3 04-24-2017 Chronic Comment on above: E11.621infected diab etic ulcer left lateral foot metatarsal head by small toe E11.621nonhealing di abetic ulcer dorsum right foot by big toe E11.621infected diab etic ulcer left small toe E11.621nonhealing di abetic ulcer left medial foot at first metatarsal head big toe E11.622nonhealing di abetic ulcer right anterior leg Diabetes mellitus without complication (20 sources) Diabetes mellitus; Translations: [Type 2 diabetes mellitus] Onset: 4 01-05-2014 Chronic Diabetes mellitus without complication (2 sources) Hyperglycemia; Translations: [Hyperglycemia, unspecified] Onset: 5 04-30-2025 Episodic Disorders of lipid metabolism (20 sources) Hyperlipidemia; Translations: [Hyperlipidemia, unspecified] Onset: 3 01-05-2014 Chronic Comment on above: The patient's lipids are managed by his primary care physician she is on simvastatin and her diabetes is treated through the primary service as well. Essential hypertension (20 sources) Hypertensive disorder; Translations: [Essential hypertension] Onset: 3 Resolved: 6 01-05-2014 Chronic Comment on above: Blood pressure is ad equately controlled in her home environment in the office today 142/71 at home this morning it was 109/55 CONTROLLED WITH MED Gangrene (20 sources) Atherosclerosis of artery of lower limb; Translations: [Atherosclerosis of [place] arteries of extremities with gangrene, bilateral legs] Onset: 5 03-19-2025 Chronic Gangrene (12 sources) Gangrenous disorder; Translations: [Gangrene, not elsewhere classified] 03-17-2025 Episodic Gastrointestinal hemorrhage (14 sources) Gastrointestinal hemorrhage; Translations: [Gastrointestinal hemorrhage, unspecified] 03-07-2025 Episodic Genitourinary symptoms and ill-defined conditions (20 sources) Urge incontinence of urine; Translations: [Urge incontinence] Onset: 2 12-02-2021 Chronic Heart valve disorders (17 sources) Systolic murmur; Translations: [Cardiac murmur, unspecified] 02-07-2024 Episodic Comment on above: The patient has a sy stolic murmur with a harsh quality radiating up to the base of the neck. He does not ever remember being told about a heart murmur in the past. Infective arthritis and osteomyelitis (except that caused by tuberculosis or sexually transmitted disease) (20 sources) Other acute osteomyelitis, unspecified ankle and foot; Translations: [Chronic osteomyelitis of foot] Onset: 6 Resolved: 4 09-22-2016 Chronic Comment on above: M86.672chronic osteo myelitis left medial foot at metatarsal head big toechronic osteomyelitis left lateral foot at metatarsal head small toe with extension onto dorsum of foot Nutritional deficiencies (20 sources) Undernutrition; Translations: [Unspecified protein-calorie malnutrition] Onset: 8 08-28-2018 Chronic Occlusion or stenosis of precerebral arteries (20 sources) Carotid artery stenosis; Translations: [Occlusion and stenosis of unspecified carotid artery] Onset: 5 Chronic Open wounds of extremities (20 sources) Open wound of foot; Translations: [Unspecified open wound, unspecified foot, initial encounter] Onset: 5 08-19-2018 Episodic Osteoarthritis (20 sources) Arthritis; Translations: [Unspecified osteoarthritis, unspecified site] 12-29-2021 Chronic Other aftercare (1 source) Post-discharge follow-up; Translations: [Encounter for follow-up examination after completed treatment for conditions other than malignant neoplasm] 03-27-2025 Episodic Other and unspecified benign neoplasm (20 sources) History of polyp of colon; Translations: [Personal history of colonic polyps] 12-29-2021 Episodic Other and unspecified benign neoplasm (3 sources) Personal history of colonic polyps; Translations: [Personal history of colonic polyps] Episodic Other circulatory disease (17 sources) Peripheral arterial occlusive disease; Translations: [Disorder of arteries and arterioles, unspecified] 03-11-2025 Chronic Other circulatory disease (2 sources) Other specified peripheral vascular diseases; Translations: [Other specified peripheral vascular diseases] Onset: 5 Chronic Other connective tissue disease (20 sources) Rhabdomyolysis; Translations: [Rhabdomyolysis] 03-07-2025 Episodic Other connective tissue disease (20 sources) Recurrent falls ; Translations: [Repeated falls] 03-07-2025 Episodic Other connective tissue disease (1 source) Falls; Translations: [Repeated falls] 03-27-2025 Episodic Other connective tissue disease (2 sources) Repeated falls; Translations: [Falling episodes] Onset: 5 Episodic Other connective tissue disease (1 source) Rhabdomyolysis; Translations: [Rhabdomyolysis] Onset: 5 Episodic Other injuries and conditions due to external causes (20 sources) Delayed healing of wound; Translations: [Other injury of unspecified body region, subsequent encounter] 02-28-2019 Episodic Other injuries and conditions due to external causes (2 sources) Injury of sternum; Translations: [Unspecified injury of thorax, initial encounter] Episodic Other injuries and conditions due to external causes (2 sources) Injury of right wrist; Translations: [Unspecified injury of right wrist, hand and finger(s), initial encounter] Episodic Other nervous system disorders (1 source) Other chronic pain; Translations: [Chronic midline low back pain without sciatica] Onset: 5 Chronic Other nervous system disorders (1 source) Abnormal gait; Translations: [Unspecified abnormalities of gait and mobility] 03-27-2025 Episodic Other nervous system disorders (1 source) Unspecified abnormalities of gait and mobility; Translations: [Abnormality of gait] Onset: 5 Episodic Other non-traumatic joint disorders (20 sources) Arthropathy of multiple joints; Translations: [Arthropathy, unspecified] Onset: 1 05-31-2021 Chronic Other non-traumatic joint disorders (1 source) Arthropathy, unspecified; Translations: [Arthritis, multiple joint involvement] Onset: 1 Chronic Other non-traumatic joint disorders (1 source) Charcot's joint, left ankle and foot; Translations: [Charcot's joint, left ankle and foot] Onset: 5 Chronic Other non-traumatic joint disorders (1 source) Shoulder pain; Translations: [Pain in right shoulder] Episodic Other nutritional; endocrine; and metabolic disorders (10 sources) Overweight; Translations: [Overweight] Onset: 7 02-06-2017 Chronic Other skin disorders (20 sources) Personal history of diseases of the skin and subcutaneous tissue; Translations: [Healed ulcer of left foot on examination] 02-28-2019 Episodic Other skin disorders (20 sources) Skin lesion; Translations: [Disorder of the skin and subcutaneous tissue, unspecified] 02-28-2019 Episodic Peripheral and visceral atherosclerosis (20 sources) Peripheral vascular disease; Translations: [Peripheral vascular disease, unspecified] Onset: 3 12-29-2014 Chronic Comment on above: [employer]-Right SFA and Po pliteal Artery 2013PTA-Left SFA 2013 Residual codes; unclassified (2 sources) Other specified postprocedural states; Translations: [Other specified postprocedural states] Onset: 5 Episodic Skin and subcutaneous tissue infections (20 sources) Cutaneous actinomycosis; Translations: [Cellulitis] Onset: 6 Resolved: 7 11-23-2016 Episodic Comment on above: L03.116cellulitis do rsum left foot and ankle L02.612infected diab etic ulcer abscess dorsum left foot and lateral foot by small toe metatarsal head and small toe Spondylosis; intervertebral disc disorders; other back problems (14 sources) Degeneration of lumbar intervertebral disc; Translations: [Other intervertebral disc degeneration, lumbar region] Onset: 5 06-04-2024 Chronic Superficial injury; contusion (14 sources) Contusion of hip; Translations: [Contusion of left hip, initial encounter] 03-07-2025 Episodic Thyroid disorders (20 sources) Multinodular goiter; Translations: [Nontoxic multinodular goiter] Onset: 5 08-30-2017 Chronic Unclassified (6 sources) appt sanford Whitehead,JENN Unclassified (1 source) Chronic midline low back pain without sciatica; Translations: [Chronic midline low back pain without sciatica] Onset: 5 Unclassified (1 source) Degeneration of intervertebral disc of lumbar region with discogenic back pain and lower extremity pain; Translations: [Degeneration of intervertebral disc of lumbar region with discogenic back pain and lower extremity pain] Onset: 5 Past or Other Problems Problem Classification Problem Date Documented Da te Episodic/Chronic Abdominal pain (1 source) Pelvic and perineal pain; Translations: [Pelvic and perineal pain] Onset: 08-25-2024 Episodic Conditions associated with dizziness or vertigo (20 sources) Benign paroxysmal positional vertigo; Translations: [Benign paroxysmal vertigo, unspecified ear] Onset: 11-14-2017 Resolved: 11-30-2021 02-25-2018 Episodic Deficiency and other anemia (20 sources) Anemia; Translations: [Anemia, unspecified] Onset: 02-25-2018 02-25-2018 Episodic Genitourinary symptoms and ill-defined conditions (20 sources) Abnormal urine odor; Translations: [Unspecified abnormal findings in urine] Onset: 05-28-2019 05-28-2019 Episodic Malaise and fatigue (20 sources) Fatigue; Translations: [Other fatigue] Onset: 12-03-2019 12-03-2019 Episodic Open wounds of extremities (10 sources) Unspecified open wound, unspecified foot, subsequent encounter; Translations: [Unspecified open wound, unspecified foot, subsequent encounter] Onset: 10-04-2016 10-05-2016 Episodic Other diseases of veins and lymphatics (10 sources) Venous stasis; Translations: [Other specified disorders of veins] Onset: 09-22-2016 09-22-2016 Episodic Other gastrointestinal disorders (10 sources) Diarrhea; Translations: [Diarrhea, unspecified] Onset: 12-18-2016 12-18-2016 Episodic Other gastrointestinal disorders (20 sources) Occult blood in stools; Translations: [Other fecal abnormalities] Onset: 10-05-2016 10-05-2016 Episodic Other lower respiratory disease (10 sources) Dyspnea; Translations: [Shortness of breath] Onset: 01-05-2014 01-05-2014 Episodic Other non-traumatic joint disorders (2 sources) Pain in right shoulder; Translations: [Pain in joint, shoulder region] Onset: 07-18-2024 06-17-2022 Episodic Other nutritional; endocrine; and metabolic disorders (13 sources) Body mass index (BMI) 28.0-28.9, adult; Translations: [Body mass index (BMI) 29.0-29.9, adult] Onset: 02-02-2014 02-06-2017 Episodic Other nutritional; endocrine; and metabolic disorders (5 sources) Body mass index (BMI) 29.0-29.9, adult; Translations: [Body mass index (BMI) 29.0-29.9, adult] Onset: 02-02-2014 02-02-2014 Episodic Other nutritional; endocrine; and metabolic disorders (20 sources) Body mass index 25-29 - overweight; Translations: [Overweight] Onset: 05-01-2013 05-01-2013 Episodic Other screening for suspected conditions (not mental disorders or infectious disease) (16 sources) Cardiovascular stress test abnormal; Translations: [Abnormal result of other cardiovascular function study] Onset: 01-05-2014 Resolved: 05-30-2017 05-30-2017 Episodic Other screening for suspected conditions (not mental disorders or infectious disease) (20 sources) Thallium stress test abnormal; Translations: [Abnormal result of other cardiovascular function study] Onset: 12-09-2013 12-09-2013 Episodic Other skin disorders (20 sources) Infection of sebaceous cyst; Translations: [Sebaceous cyst] Onset: 02-26-2019 02-26-2019 Episodic Residual codes; unclassified (12 sources) Family history of stroke; Translations: [Body mass index (BMI) 29.0-29.9, adult] Onset: 02-02-2014 06-12-2014 Episodic Residual codes; unclassified (20 sources) History of cardiac catheterization; Translations: [Other specified postprocedural states] Onset: 01-17-2014 08-19-2018 Episodic Comment on above: failed PCI-Distal RC A Spondylosis; intervertebral disc disorders; other back problems (20 sources) Chronic low back pain; Translations: [Chronic midline low back pain without sciatica] Onset: 12-05-2023 12-05-2023 Episodic Sprains and strains (20 sources) Rupture of tendon of biceps; Translations: [Strain of muscle, fascia and tendon of other parts of biceps, left arm, initial encounter] Onset: 12-05-2022 Episodic Syncope (10 sources) Syncope and collapse; Translations: [Syncope and collapse] Onset: 06-12-2014 06-12-2014 Episodic Thyroid disorders (10 sources) Disorder of thyroid gland; Translations: [Disorder of thyroid, unspecified] Onset: 02-06-2017 02-06-2017 Episodic Unclassified (10 sources) Preoperative cardiovascular examination ; Translations: [Encounter for preprocedural cardiovascular examination] Onset: 01-05-2014 Resolved: 05-30-2017 01-05-2014 Urinary tract infections (20 sources) Recurrent urinary tract infection; Translations: [Urinary tract infection, site not specified] Onset: 05-31-2021 05-31-2021 Episodic Results Test Name Value Interpretation Reference Range Facility Cardiology Visit Reporton Cardiology Visit Report Normal [facility] CNOVon 04-30-2025 CNOV Office Visit (FAMPWS ) -------- GELY NEWMAN ([id number]) 1950 F Date Time Provider Department 04/30/25 11:20 AM FOUZIA ESCOBEDO During your visit today, we recorded the following information about you: Pulse Respiration Blood pressure Weight 77/minute 12/minute 130/60 68.9 kg Fouzia Escobedo APRN.[employer]OEMAKING [employer]ISHER 04/30/2025 12:26 PM Signed HISTORY OF PRESENT ILLNESS: Diabetes Mellitus: - Currently taking glipizide 5 mg daily, had stopped it but restarted it and taking daily since 04/16 - Monitors blood glucose levels four times daily (before breakfast, lunch, dinner, and bedtime) - Fasting blood glucose levels range from 121-164, before lunch and supper its ranging mostly in 200-300s, then at night it's usually upper 100s-200s - Noted higher blood glucose levels after consuming Special K cereal with 1% milk Wounds bilateral feet being managed by podiatry - Home health nurse visits for wound dressing changes - Recent visit to nonprofit director Dr. Irene, who discussed potential surgery for wound debridement, right foot wound is improving -wound infections likely adding to increased blood sugar readings, currently doesn't have infection and not on antibiotics Prior encounters leading up to this visit: Initial reason for follow up and when starting on glipizide: 04/07 phone encounter- BLOOD GLUCOSE: Currently 140 fasting this morning. Patient reports that since coming home from the hospital her blood sugars have been elevated throughout the day. She reports that generally over 200. EX: 04/06/2025 mid-afternoon 440, Bedtime 279, and 04/07/2025 fasting 140. Patient reports that during TCU stay metformin was discontinued by Dr. Solomon d/t her kidney function. Patient forgot to ask about blood sugars at follow up hospital visit with Yumiko. Most recent phone encounter: 04/15 HAVE BEENTAKING THE GLIPIZED SINCE THE 18 OF APRIL AND HAVE NOT REALLY SEEN ANY IMPROVMENT IN THE BLOOD SUGARS.DEPENDING ON WHAT THEY ARE AT NIGHT, I GET UP IN THE MORNING AND TAKE IT. THIS MORNING IT WAS 177. I ATE A SMALL BOWL OF CEREAL(SPECIAL K WITH 13 GRAMS OD PROTEIN AND 1% MILK. I TOOK BLOOD SUGAR 2 HOURS LATER AND IT WAS 404. DON'T UNDERSTAND. SHOULD WE INCREASE THE DOSAGE. WILL AWAIT YOUR REPLY AND SUGGESTIONS. 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 Ch Frog Shaker, 90% blockage- unable to do stenting Diabetes mellitus type 2 in obese Diabetic feet (HCC) Gangrene (HCC) 2012 RIGHT FOOT Hypertension Mild non proliferative diabetic retinopathy (HCC) 06/11/2013 Both eyes, Dr. Ortiz [facility]-03/25/2020 left mild, right moderate Multiple thyroid nodules last US 01/2015 Peripheral artery disease due to Diabetes mellitus, Dr. Kwaku Moscoso Rotator cuff syndrome of left shoulder Dr. Deluna [facility] PAST SURGICAL HISTORY Procedure Laterality Date AMPUTATION TOE INTERPHALANGEAL JOINT 01-01-2013 left 5th toe due to diabetes gangrene ARTHROSCOPY KNEE DIAGNOSTIC W/WO SYNOVIAL BX SPX 12/31/13 Arthroscopy, knee lt COLONOSCOPY FLX DX W/COLLJ SPEC WHEN PFRMD 1-01-30 tubular adenomas, repeat in 3 years COLONOSCOPY FLX DX W/COLLJ SPEC WHEN PFRMD 10/25/2016 ESOPHAGOGASTRODUODENOSCO PY TRANSORAL DIAGNOSTIC 10/25/2016 EXC TUMOR SOFT TISS FOREARM AND/WRIST SUBQ 3+CM 09/08/14 Exc. right olecrenon dermal/SC mass FNA WITH IMAGING 03/17/15 U/S FNA bilateral thyroid PAST SURGICAL HISTORY OF Left 08/29-2015 foot - diabetic PAST SURGICAL HISTORY OF Left 06/2015 TKA PAST SURGICAL HISTORY OF Left 10/2016 excision of bone REVSC OPN/PRG FEM/POP W/ANGIOPLASTY UNI 12-31-12 RIGHT FOOT REVSC OPN/PRQ FEM/POP W/ATHRC/ANGIOP SM VSL 02-10-13 right leg REVSC OPN/PRQ FEM/POP W/ATHRC/ANGIOP SM VSL 04-08-13 ROTATOR CUFF REPAIR 03/11/14 Dr. Deluna [facility] CATHJ EA 1ST ORD ABDL PEL/LXTR ART BRNC 06-07-16 APLL ALLERGIES Sulfa (Sulfonamide Antibiotics) MEDICATIONS Current Outpatient Medications Medication Sig amLODIPine (NORVASC) 5 mg tablet Take 5 mg by mouth once daily. metoprolol succinate ER (TOPROL XL) 25 mg 24 hr tablet Take 0.5 tablets by mouth once daily. simvastatin (ZOCOR) 40 mg tablet Take 1 tablet by mouth daily at bedtime. Blood Pressure Test Kit-Medium kit 1 Device once daily. Dx: Essential hypertension clopidogrel (PLAVIX) 75 mg tablet Take 75 mg by mouth once daily. ferrous sulfate 325 mg (65 mg iron) tablet Take 325 mg by mouth daily with breakfast. Cholecalciferol, Vitamin D3, 25 mcg (1,000 unit) cap Take 1,000 Units by mouth once daily. SACCHAROMYCES BOULARDII (PROBIOTIC, S.BOULARDII, ORAL) Take 1 capsule by mouth once daily. Cranberry Extract 300 mg tab Take by mouth. acetaminophen (TYLENOL) 325 mg tablet Take 650 m (more content not included)... Normal [facility] Thyroidon 04-27-2025 Thyroid Normal [facility] Duplex ultrasound of carotid artery reportOrdered By: Russell Clement on 04-23-2025 Study report [facility] [address] [place] [address] Carotid Duplex Ultrasound 04/20/25 1337 MR#: [id number] Acct: [id number] Name: GELY NEWMAN Rep #:[id number] : 1950 75 From: Russell Abraham Attending Dr: LILLIAM Gilmore Stat us: REG CLI Ordering Dr: Abena Fiore Date: Location: [facility] Sex: F C Admitted: Reason For Study Reason For Study: Carotid Stenosis Rt. Velocities/BP Lt. Velocities/BP Prox CCA 88/11 cm/sec. Prox CCA 77/18 cm/sec. Mid CCA 67/11 cm/sec. Mid CCA 65/15 cm/sec. Dist CCA 62/14 cm/sec. Dist CCA 64/16 cm/sec. Prox ICA 49/12 cm/sec. Prox ICA 134/32 cm/sec. Mid ICA 90/28 cm/sec. Mid ICA 83/25 cm/sec. Dist ICA 74/20 cm/sec. Dist ICA 85/29 cm/sec. Rt. ICA/CCA = 1.4. Lt. ICA/CCA = 2.06. Prox ECA 197/8 cm/sec. Prox ECA 216/5 cm/sec. Rt. Vert. 55/18 cm/sec. Lt. Vert. 71/17 cm/sec. Right Extracranial There is heterogeneous, irregular atherosclerotic plaque noted in the right common carotid artery. There is heterogeneous, irregular atherosclerotic plaque noted in the right internal carotid artery. There is heterogeneous, irregular atherosclerotic plaque noted in the right external carotid artery. Antegrade flow is noted in the right vertebral artery. Left Extracranial There is heterogeneous, irregular atherosclerotic plaque noted in the left common carotid artery. There is heterogeneous, irregular atherosclerotic plaque noted in the left internal carotid artery. There is heterogeneous, irregular atherosclerotic plaque noted in the left external carotid artery. Antegrade flow is noted in the left vertebral artery. Procedure Carotid Duplex [id number]. This is a Carotid Duplex examination using B-mode, color flow and specral Doppler. Exam performed in department. VL/Carotid Duplex Ultrasound Interpretation Summary Mild (<50%) stenosis right extracranial internal carotid. Moderate (50-69%) stenosis left extracranial internal carotid. Patent and antegrade vertebrals bilaterally. Ordering Physician: Abena Fiore Referring Physician: Rishi Vasquez Performed By: Adelia Bergeron, JAMAR, RVT 04/23/25 1037 Date _ Russell Clement MD CC: LILLIAM Gilmore; Dr. 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 half-way will work with patient on wound care to bilateral lower extremities. Patient is being follow by Dr. Irene for wound care. No call back needed. Hina Lomeli RN Allergies As of Date: 04/16/2025 Noted Allergy Reaction SULFA (SULFONAMIDE ANTIBIOTICS) 01/13/2013 16 - Unknown Comments: childhood Date Reviewed: 03/27/2025 Reviewed by: Rachel Jacobs MA - Fully Assessed Reason for Visit: [facility] Plan of Care [Other] Prescriptions as of 04/16/2025 - glipiZIDE (GLUCOTROL XL) 5 mg 24 hr tablet Take 1 tablet by mouth once daily. - amLODIPine (NORVASC) 5 mg tablet Take 5 mg by mouth once daily. - doxycycline monohydrate (MONODOX) 100 mg capsule Take 100 mg by mouth two times a day. - metroNIDAZOLE (FLAGYL) 500 mg tablet Take 500 mg by mouth three times a day. - cefdinir (OMNICEF) 300 mg capsule Take 300 mg by mouth two times a day. - metoprolol succinate ER (TOPROL XL) 25 mg 24 hr tablet Take 0.5 tablets by mouth once daily. - simvastatin (ZOCOR) 40 mg tablet Take 1 tablet by mouth daily at bedtime. - estradiol (ESTRACE) 0.01 % (0.1 mg/gram) vaginal cream Use 1 g vaginally two times a week. - Blood Pressure Test Kit-Medium kit 1 Device once daily. Dx: Essential hypertension - clopidogrel (PLAVIX) 75 mg tablet Take 75 mg by mouth once daily. - ferrous sulfate 325 mg (65 mg iron) tablet Take 325 mg by mouth daily with breakfast. - Cholecalciferol, Vitamin D3, 25 mcg (1,000 unit) cap Take 1,000 Units by mouth once daily. - SACCHAROMYCES BOULARDII (PROBIOTIC, S.BOULARDII, ORAL) Take 1 capsule by mouth once daily. - Cranberry Extract 300 mg tab Take by mouth. - acetaminophen (TYLENOL) 325 mg tablet Take 650 mg by mouth every 6 hours as needed. - ascorbic acid, vitamin C, (VITAMIN C) 500 mg tablet Take 1 tablet by mouth once daily. - Wuhnvliw-Mmts-Ght-Folic Acid 18-0.4 mg tab Take 1 tablet by mouth once daily. - omega-3 fatty acids 1,000 mg cap Take 1 capsule by mouth once daily. - Aspirin 81 mg Tab Take 1 tablet by mouth once daily. Take with food. Problem List As Of Date 04/16/2025 Noted Resolved Peripheral vascular occlusive disease [I73.9] 01/13/2013 Diabetes mellitus type 2 with peripheral artery*01/28/2013 Hypertension [I10] 01/28/2013 Overweight (BMI 25.0-29.9) [E66.3] 05/01/2013 Dyslipidemia (high LDL; low HDL) [E78.5] 07/01/2013 Abnormal nuclear stress test [R94.39] 12/09/2013 Carotid atherosclerosis, bilateral [I65.23] 01/21/2015 Multinodular thyroid [E04.2] 02/26/2015 Essential hypertension [I10] 11/30/2015 10/24/2016 Occult blood in stools [R19.5] 10/05/2016 Coronary artery disease [I25.10] 10/24/2016 CKD stage G3b/A1, GFR 30-44 and albumin creatin*01/29/2017 Chronic osteomyelitis with draining sinus, left*01/29/2017 06/04/2024 Situational depression [F43.21] 01/29/2017 Benign paroxysmal positional vertigo [H81.10] 11/14/2017 11/30/2021 BPPV (benign paroxysmal positional vertigo), un*02/25/2018 Anemia [D64.9] 02/25/2018 Vitamin D deficiency [E55.9] 08/28/2018 Essential hypertension [I10] 08/28/2018 Infected sebaceous cyst [L72.3, L08.9] 02/26/2019 Coronary artery disease involving [place] heart *05/28/2019 Abnormal urine odor [R82.90] 05/28/2019 Stage 3 chronic kidney disease (HCC) [N18.30] 12/03/2019 Fatigue [R53.83] 12/03/2019 Arthritis, multiple joint involvement [M12.9] 05/31/2021 Recurrent UTI (urinary tract infection) [N39.0] 05/31/2021 Urgency incontinence [N39.41] 12/02/2021 Biceps rupture, proximal, left, initial encount*12/05/2022 Dizziness [R42] 12/05/2022 Chronic kidney disease, stage 3a (HCC) [N18.31] 12/05/2022 Chronic midline low back pain without sciatica *12/05/2023 Multiple thyroid nodules [E04.2] 12/05/2023 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*06/04/2024 Degeneration of intervertebral disc of lumbar r*12/05/2024 Encounter for screening mammogram for malignant*12/05/2024 Encounter Status:Closed by HINA LMOELI on 04/16/25 Normal [facility] Anion gap in Serum or Plasma Ordered By: Russell Clement on 04-15-2025 Anion gap [Moles/Vol] 13 mmol/L 04-02 [facility] BUN/creatinine ratioOrdered By: Russell Clement on 04-15-2025 Urea nitrogen/Creatinine [Mass ratio] 33.4 mg/mg High - [facility] Basic Metabolic Profile (BMP )on 04-15-2025 BUN/CRE 33.4 RATIO High - [facility] Comment on above: Performed By: #### L 500.2500, L100.0500 ####[facility] [address] [place], [address] Calcium [Mass/Vol] 9.3 mg/dL Normal 7.6-11.0 [facility] Comment on above: Performed By: #### L 500.2500, L100.0500 ####[facility] [address] [place], [address] Chloride [Moles/Vol] 106 mmol/L Normal 98-108 [facility] Comment on above: Performed By: #### L 500.2500, L100.0500 ####[facility] [address] [place], [address] CO2 [Moles/Vol] 21.9 mmol/L Normal 21.0-32.0 [facility] Comment on above: Performed By: #### L 500.2500, L100.0500 ####[facility] [address] [place], [address] Creatinine [Mass/Vol] 1.07 mg/dL Normal 0.70-1.20 [facility] Comment on above: Performed By: #### L 500.2500, L100.0500 ####[facility] [address] [place], [address] ECRCL 48.30 ml/min Low 50-250 [facility] Comment on above: Performed By: #### L 500.2500, L100.0500 ####[facility] [address] [place], [address] GAP 13 Normal 5-15 [facility] Comment on above: Performed By: #### L 500.2500, L100.0500 ####[facility] [address] [place], [address] GFR/1.73 sq M.predicted among non-blacks MDRD (S/P/Bld) [Vol rate/Area] 55 mL/min/{1.73_m2} Low >60 [facility] Comment on above: Result Comment: mL/m in/1.73m2 CKD-EPI Creatinine Equation (2020) Performed By: #### L 500.2500, L100.0500 ####[facility] [address] [place], [address] Glucose [Mass/Vol] 152 mg/dL High 70-99 [facility] Comment on above: Performed By: #### L 500.2500, L100.0500 ####[facility] [address] [place], [address] Potassium [Moles/Vol] 4.9 mmol/L Normal 3.3-5.1 [facility] Comment on above: Performed By: #### L 500.2500, L100.0500 ####[facility] [address] [place], [address] Sodium [Moles/Vol] 140 mmol/L Normal 133-145 [facility] Comment on above: Performed By: #### L 500.2500, L100.0500 ####[facility] [address] [place], [address] Urea nitrogen [Mass/Vol] 36 mg/dL High 4-19 [facility] Comment on above: Performed By: #### L 500.2500, L100.0500 ####[facility] [address] [place], [address] CBC-Complete Blood Cnt No Di ffon 04-15-2025 Erythrocyte distribution width (RBC) [Ratio] 15.8 % High 11.6-14.6 [facility] Comment on above: Performed By: #### L 500.2500, L100.0500 ####[facility] [address] [place], [address] Hematocrit (Bld) [Volume fraction] 38.4 % Normal 37-47 [facility] Comment on above: Performed By: #### L 500.2500, L100.0500 ####[facility] [address] [place], [address] Hemoglobin (Bld) [Mass/Vol] 12.2 g/dL Normal 12.0-15.0 [facility] Comment on above: Performed By: #### L 500.2500, L100.0500 ####[facility] [address] [place], [address] MCH (RBC) [Entitic mass] 29.5 pg Normal 27.0-32.0 [facility] Comment on above: Performed By: #### L 500.2500, L100.0500 ####[facility] [address] [place], [address] MCHC (RBC) [Mass/Vol] 31.8 g/dL Low 32-36 [facility] Comment on above: Performed By: #### L 500.2500, L100.0500 ####[facility] [address] [place], [address] MCV (RBC) [Entitic vol] 92.8 fL Normal 81-99 [facility] Comment on above: Performed By: #### L 500.2500, L100.0500 ####[facility] [address] [place], [address] Platelet mean volume (Bld) [Entitic vol] 11.4 fL Normal 6.2-12.0 [facility] Comment on above: Performed By: #### L 500.2500, L100.0500 ####[facility] [address] [place], [address] Platelets (Bld) [#/Vol] 205 10*3/uL Normal 150-450 [facility] Comment on above: Performed By: #### L 500.2500, L100.0500 ####[facility] [address] [place], [address] RBC (Bld) [#/Vol] 4.14 10*6/uL Low 4.2-5.4 [facility] Comment on above: Performed By: #### L 500.2500, L100.0500 ####[facility] [address] [place], [address] RDW SD 53.9 fl High 35.1-43.9 [facility] Comment on above: Performed By: #### L 500.2500, L100.0500 ####[facility] [address] [place], [address] WBC (Bld) [#/Vol] 7.7 10*3/uL Normal 4.4-11.0 [facility] Comment on above: Performed By: #### L 500.2500, L100.0500 ####[facility] [address] [place], [address] CNPNon 04-15-2025 [facility] Telephone (CHANELL) -------- GELY NEWMAN ([id number]) 1950 F Date Time Provider Department 04/15/25 FOUZIA ESCOBEDO [facility] During your visit today, we recorded the following information about you: Allergies As of Date: 04/15/2025 Noted Allergy Reaction SULFA (SULFONAMIDE ANTIBIOTICS) 01/13/2013 18 - Unknown Comments: childhood Date Reviewed: 03/27/2025 Reviewed by: Rachel Jacobs MA - Fully Assessed Prescriptions as of 04/15/2025 - glipiZIDE (GLUCOTROL XL) 5 mg 24 hr tablet Take 1 tablet by mouth once daily. - amLODIPine (NORVASC) 5 mg tablet Take 5 mg by mouth once daily. - doxycycline monohydrate (MONODOX) 100 mg capsule Take 100 mg by mouth two times a day. - metroNIDAZOLE (FLAGYL) 500 mg tablet Take 500 mg by mouth three times a day. - cefdinir (OMNICEF) 300 mg capsule Take 300 mg by mouth two times a day. - metoprolol succinate ER (TOPROL XL) 25 mg 24 hr tablet Take 0.5 tablets by mouth once daily. - simvastatin (ZOCOR) 40 mg tablet Take 1 tablet by mouth daily at bedtime. - estradiol (ESTRACE) 0.01 % (0.1 mg/gram) vaginal cream Use 1 g vaginally two times a week. - Blood Pressure Test Kit-Medium kit 1 Device once daily. Dx: Essential hypertension - clopidogrel (PLAVIX) 75 mg tablet Take 75 mg by mouth once daily. - ferrous sulfate 325 mg (65 mg iron) tablet Take 325 mg by mouth daily with breakfast. - Cholecalciferol, Vitamin D3, 25 mcg (1,000 unit) cap Take 1,000 Units by mouth once daily. - SACCHAROMYCES BOULARDII (PROBIOTIC, S.BOULARDII, ORAL) Take 1 capsule by mouth once daily. - Cranberry Extract 300 mg tab Take by mouth. - acetaminophen (TYLENOL) 325 mg tablet Take 650 mg by mouth every 6 hours as needed. - ascorbic acid, vitamin C, (VITAMIN C) 500 mg tablet Take 1 tablet by mouth once daily. - Yfxqawfl-Eqxl-Cjp-Folic Acid 18-0.4 mg tab Take 1 tablet by mouth once daily. - omega-3 fatty acids 1,000 mg cap Take 1 capsule by mouth once daily. - Aspirin 81 mg Tab Take 1 tablet by mouth once daily. Take with food. Problem List As Of Date 04/15/2025 Noted Resolved Peripheral vascular occlusive disease [I73.9] 01/13/2013 Diabetes mellitus type 2 with peripheral artery*01/28/2013 Hypertension [I10] 01/28/2013 Overweight (BMI 25.0-29.9) [E66.3] 05/01/2013 Dyslipidemia (high LDL; low HDL) [E78.5] 07/01/2013 Abnormal nuclear stress test [R94.39] 12/09/2013 Carotid atherosclerosis, bilateral [I65.23] 01/21/2015 Multinodular thyroid [E04.2] 02/26/2015 Essential hypertension [I10] 11/30/2015 10/24/2016 Occult blood in stools [R19.5] 10/05/2016 Coronary artery disease [I25.10] 10/24/2016 CKD stage G3b/A1, GFR 30-44 and albumin creatin*01/29/2017 Chronic osteomyelitis with draining sinus, left*01/29/2017 06/04/2024 Situational depression [F43.21] 01/29/2017 Benign paroxysmal positional vertigo [H81.10] 11/14/2017 11/30/2021 BPPV (benign paroxysmal positional vertigo), un*02/25/2018 Anemia [D64.9] 02/25/2018 Vitamin D deficiency [E55.9] 08/28/2018 Essential hypertension [I10] 08/28/2018 Infected sebaceous cyst [L72.3, L08.9] 02/26/2019 Coronary artery disease involving [place] heart *05/28/2019 Abnormal urine odor [R82.90] 05/28/2019 Stage 3 chronic kidney disease (HCC) [N18.30] 12/03/2019 Fatigue [R53.83] 12/03/2019 Arthritis, multiple joint involvement [M12.9] 05/31/2021 Recurrent UTI (urinary tract infection) [N39.0] 05/31/2021 Urgency incontinence [N39.41] 12/02/2021 Biceps rupture, proximal, left, initial encount*12/05/2022 Dizziness [R42] 12/05/2022 Chronic kidney disease, stage 3a (HCC) [N18.31] 12/05/2022 Chronic midline low back pain without sciatica *12/05/2023 Multiple thyroid nodules [E04.2] 12/05/2023 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*06/04/2024 Degeneration of intervertebral disc of lumbar r*12/05/2024 Encounter for screening mammogram for malignant*12/05/2024 Encounter Status:Closed by FOUZIA ESCOBEDO on 04/15/25 Normal [facility] Carbon dioxide, total [Moles /volume] in Central venous bloodOrdered By: Russell Clement on 04-15-2025 CO2 [Moles/Vol] 21.9 mmol/L 21.0-32.0 [facility] Chloride assayOrdered By: Woo Clement on 04-15-2025 Chloride [Moles/Vol] 106 mmol/L 98-108 [facility] Erythrocyte distribution wid th ratioOrdered By: Russell Clement on 04-15-2025 Erythrocyte distribution width (RBC) [Ratio] 15.8 % High 11.6-14.6 [facility] Erythrocyte distribution wid th standard deviationOrdered By: Russell Clement on 04-15-2025 Erythrocyte distribution width (RBC) [Ratio] 53.9 fl High 35.1-43.9 [facility] Glomerular filtration rate ( GFR) estimation/1.73 sq m using serum, plasma, or whole bOrdered By: Russell Clement on 04-15-2025 GFR/1.73 sq M.predicted among non-blacks MDRD (S/P/Bld) [Vol rate/Area] 55 mL/min/{1.73_m2} Low >60 [facility] Comment on above: mL/min/1.73m2 CKD-EP I Creatinine Equation (2020) Hematocrit Auto (Bld) [Volum e fraction]Ordered By: Russell Clement on 04-15-2025 Hematocrit (Bld) [Volume fraction] 38.4 % 37-47 [facility] Hemoglobin measurementOrdere d By: Russell Clement on 04-15-2025 Hemoglobin (Bld) [Mass/Vol] 12.2 g/dL 12.0-15.0 [facility] MCV (mean corpuscular volume ) determinationOrdered By: Russell Clement on 04-15-2025 MCV (RBC) [Entitic vol] 92.8 fL 81-99 [facility] Mean corpuscular hemoglobin (MCH) determinationOrdered By: Russell Clement on 04-15-2025 MCH (RBC) [Entitic mass] 29.5 pg 27.0-32.0 [facility] Mean corpuscular hemoglobin concentration (MCHC) determinationOrdered By: Russell Clement on 04-15-2025 MCHC (RBC) [Mass/Vol] 31.8 g/dL Low 32-36 [facility] Mean platelet volume determi nationOrdered By: Russell Clement on 04-15-2025 Platelet mean volume (Bld) [Entitic vol] 11.4 fL 6.2-12.0 [facility] Operative Reporton Operative Report Normal [facility] Platelet countOrdered By: Woo Clement on 04-15-2025 Platelets (Bld) [#/Vol] 205 10*3/uL 150-450 [facility] Potassium measurement (mass/ volume)Ordered By: Russell Clement on 04-15-2025 Potassium (Unsp spec) [Mass/Vol] 4.9 mmol/L 3.3-5.1 [facility] RBC Auto (Bld) [#/Vol]Ordere d By: Russell Clement on 04-15-2025 RBC (Bld) [#/Vol] 4.14 10*6/uL Low 4.2-5.4 [facility] Serum creatinine measurement (mass/volume)Ordered By: Russell Clement on 04-15-2025 Creatinine [Mass/Vol] 1.07 mg/dL 0.70-1.20 [facility] Serum glucose measurement (m ass/volume)Ordered By: Russell Clement on 04-15-2025 Glucose [Mass/Vol] 152 mg/dL High 70-99 [facility] Serum or plasma calcium natalia urement (mass/volume)Ordered By: Russell Clement on 04-15-2025 Calcium [Mass/Vol] 9.3 mg/dL 7.6-11.0 [facility] Serum or plasma urea nitroge n measurement (mass/volume)Ordered By: Russell Clement on 04-15-2025 Urea nitrogen [Mass/Vol] 36 mg/dL High 4-19 [facility] Sodium levelOrdered By: Russell Clement on 04-15-2025 Sodium [Moles/Vol] 140 mmol/L 133-145 [facility] White blood cell (WBC) count Ordered By: Russell Clement on 04-15-2025 WBC (Bld) [#/Vol] 7.7 10*3/uL 4.4-11.0 [facility] GELY NEWMAN ([id number]) 1950 F Date Time Provider Department 04/10/25 FOUZIA ESCOBEDO During your visit today, we recorded the following information about you: Meagan Martinez MA 04/27/2025 9:42 AM Signed See update from pt regarding blood sugars and medication change. Please advise. ALFONSO Nicole Amanda, RN 04/27/2025 11:39 AM Signed Per providers request Pt was scheduled with Fouzia Escobedo NP on 04/30/25. Pt will bring BS logs with her. Sara Solis RN Allergies As of Date: 04/10/2025 Noted Allergy Reaction SULFA (SULFONAMIDE ANTIBIOTICS) 01/13/2013 18 - Unknown Comments: childhood Date Reviewed: 03/27/2025 Reviewed by: Rachel Jacobs MA - Fully Assessed Reason for Visit: Appointment [186] Patient Update [1234] Primary Visit Diagnosis: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) [E11.51] Other Visit Diagnosis:Stage 3 chronic kidney disease, unspecified whether stage 3a or 3b CKD (HCC) [N18.30] Order(s):HEMOGLOBIN A1C [UVGPU7Y] Order #: [id number] FUTURE COMPREHENSIVE METABOLIC PANEL [SQCMP] Order #: [id number] FUTURE glipiZIDE (GLUCOTROL XL) 5 mg 24 hr tabletTake 1 tablet by mouth once daily.Disp: 30 tabletRfl: 2 Prescriptions as of 04/27/2025 - glipiZIDE (GLUCOTROL XL) 5 mg 24 hr tablet Take 1 tablet by mouth once daily. - amLODIPine (NORVASC) 5 mg tablet Take 5 mg by mouth once daily. - doxycycline monohydrate (MONODOX) 100 mg capsule Take 100 mg by mouth two times a day. - metroNIDAZOLE (FLAGYL) 500 mg tablet Take 500 mg by mouth three times a day. - cefdinir (OMNICEF) 300 mg capsule Take 300 mg by mouth two times a day. - metoprolol succinate ER (TOPROL XL) 25 mg 24 hr tablet Take 0.5 tablets by mouth once daily. - simvastatin (ZOCOR) 40 mg tablet Take 1 tablet by mouth daily at bedtime. - estradiol (ESTRACE) 0.01 % (0.1 mg/gram) vaginal cream Use 1 g vaginally two times a week. - Blood Pressure Test Kit-Medium kit 1 Device once daily. Dx: Essential hypertension - clopidogrel (PLAVIX) 75 mg tablet Take 75 mg by mouth once daily. - ferrous sulfate 325 mg (65 mg iron) tablet Take 325 mg by mouth daily with breakfast. - Cholecalciferol, Vitamin D3, 25 mcg (1,000 unit) cap Take 1,000 Units by mouth once daily. - SACCHAROMYCES BOULARDII (PROBIOTIC, S.BOULARDII, ORAL) Take 1 capsule by mouth once daily. - Cranberry Extract 300 mg tab Take by mouth. - acetaminophen (TYLENOL) 325 mg tablet Take 650 mg by mouth every 6 hours as needed. - ascorbic acid, vitamin C, (VITAMIN C) 500 mg tablet Take 1 tablet by mouth once daily. - Gdcdgjiq-Zonx-Jos-Folic Acid 18-0.4 mg tab Take 1 tablet by mouth once daily. - omega-3 fatty acids 1,000 mg cap Take 1 capsule by mouth once daily. - Aspirin 81 mg Tab Take 1 tablet by mouth once daily. Take with food. Medication notes this encounter METFORMIN 500 MG TABLET >> Fouzia Escobedo, TAY.[employer]AKING [employer]ISHER 04/10/2025 4:[address] solomon in hospital due to kidney function Problem List As Of Date 04/10/2025 Noted Resolved Peripheral vascular occlusive disease [I73.9] 01/13/2013 Diabetes mellitus type 2 with peripheral artery*01/28/2013 Hypertension [I10] 01/28/2013 Overweight (BMI 25.0-29.9) [E66.3] 05/01/2013 Dyslipidemia (high LDL; low HDL) [E78.5] 07/01/2013 Abnormal nuclear stress test [R94.39] 12/09/2013 Carotid atherosclerosis, bilateral [I65.23] 01/21/2015 Multinodular thyroid [E04.2] 02/26/2015 Essential hypertension [I10] 11/30/2015 10/24/2016 Occult blood in stools [R19.5] 10/05/2016 Coronary artery disease [I25.10] 10/24/2016 CKD stage G3b/A1, GFR 30-44 and albumin creatin*01/29/2017 Chronic osteomyelitis with draining sinus, left*01/29/2017 06/04/2024 Situational depression [F43.21] 01/29/2017 Benign paroxysmal positional vertigo [H81.10] 11/14/2017 11/30/2021 BPPV (benign paroxysmal positional vertigo), un*02/25/2018 Anemia [D64.9] 02/25/2018 Vitamin D deficiency [E55.9] 08/28/2018 Essential hypertension [I10] 08/28/2018 Infected sebaceous cyst [L72.3, L08.9] 02/26/2019 Coronary artery disease involving [place] heart *05/28/2019 Abnormal urine odor [R82.90] 05/28/2019 Stage 3 chronic kidney disease (HCC) [N18.30] 12/03/2019 Fatigue [R53.83] 12/03/2019 Arthritis, multiple joint involvement [M12.9] 05/31/2021 Recurrent UTI (urinary tract infection) [N39.0] 05/31/2021 Urgency incontinence [N39.41] 12/02/2021 Biceps rupture, proximal, left, initial encount*12/05/2022 Dizziness [R42] 12/05/2022 Chronic kidney disease, stage 3a (HCC) [N18.31] 12/05/2022 Chronic midline low back pain without sciatica *12/05/2023 Multiple thyroid nodules [E04.2] 12/05/2023 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*06/04/2024 Degeneration of intervertebral disc of lumbar r*12/05/2024 Encounter for screening mammogram for prudencio (more content not included)... Normal [facility] Basic Metabolic Profile (BMP )on 04-09-2025 BUN Normal 4-19 [facility] Comment on above: Result Comment: Canc elled via OM: Order cancelled - Patient discharged Performed By: #### L 500.2500, L100.0100 ####[facility] [address] [place], [address] BUN/CRE Normal 10-20 [facility] Comment on above: Result Comment: Canc elled via OM: Order cancelled - Patient discharged Performed By: #### L 500.2500, L100.0100 ####[facility] [address] [place], [address] Calcium Normal 7.6-11.0 [facility] Comment on above: Result Comment: Canc elled via OM: Order cancelled - Patient discharged Performed By: #### L 500.2500, L100.0100 ####[facility] [address] [place], [address] CL Normal 98-108 [facility] Comment on above: Result Comment: Canc elled via OM: Order cancelled - Patient discharged Performed By: #### L 500.2500, L100.0100 ####[facility] [address] [place], [address] CO2 Normal 21.0-32.0 [facility] Comment on above: Result Comment: Canc elled via OM: Order cancelled - Patient discharged Performed By: #### L 500.2500, L100.0100 ####[facility] [address] [place], [address] CREAT,SERUM Normal 0.70-1.20 [facility] Comment on above: Result Comment: Canc elled via OM: Order cancelled - Patient discharged Performed By: #### L 500.2500, L100.0100 ####[facility] [address] [place], [address] eGFR Normal >60 [facility] Comment on above: Result Comment: Canc elled via OM: Order cancelled - Patient discharged Performed By: #### L 500.2500, L100.0100 ####[facility] [address] [place], [address] GAP Normal 5-15 [facility] Comment on above: Result Comment: Canc elled via OM: Order cancelled - Patient discharged Performed By: #### L 500.2500, L100.0100 ####[facility] [address] [place], [address] GLU Normal 70-99 [facility] Comment on above: Result Comment: Canc elled via OM: Order cancelled - Patient discharged Performed By: #### L 500.2500, L100.0100 ####[facility] [address] [place], [address] Potassium Normal 3.3-5.1 [facility] Comment on above: Result Comment: Canc elled via OM: Order cancelled - Patient discharged Performed By: #### L 500.2500, L100.0100 ####[facility] [address] [place], [address] Basic Metabolic Profile (BMP) Normal 133-145 [facility] Comment on above: Result Comment: Canc elled via OM: Order cancelled - Patient discharged Performed By: #### L 500.2500, L100.0100 ####[facility] [address] [place], [address] CBC W/Diff, Automatedon 05-2 -2024 Absolute Neut Normal 2.0-7.7 [facility] Comment on above: Result Comment: Canc elled via OM: Order cancelled - Patient discharged Performed By: #### L 500.2500, L100.0100 ####[facility] [address] [place], [address] HCT Normal 37-47 [facility] Comment on above: Result Comment: Canc elled via OM: Order cancelled - Patient discharged Performed By: #### L 500.2500, L100.0100 ####[facility] [address] [place], [address] HGB Normal 12.0-15.0 [facility] Comment on above: Result Comment: Canc elled via OM: Order cancelled - Patient discharged Performed By: #### L 500.2500, L100.0100 ####[facility] [address] [place], [address] MCH Normal 27.0-32.0 [facility] Comment on above: Result Comment: Canc elled via OM: Order cancelled - Patient discharged Performed By: #### L 500.2500, L100.0100 ####[facility] [address] [place], [address] MCHC Normal 32-36 [facility] Comment on above: Result Comment: Canc elled via OM: Order cancelled - Patient discharged Performed By: #### L 500.2500, L100.0100 ####[facility] [address] [place], [address] MCV Normal 81-99 [facility] Comment on above: Result Comment: Canc elled via OM: Order cancelled - Patient discharged Performed By: #### L 500.2500, L100.0100 ####[facility] [address] [place], [address] NEUT% Normal 47-70 [facility] Comment on above: Result Comment: Canc elled via OM: Order cancelled - Patient discharged Performed By: #### L 500.2500, L100.0100 ####[facility] [address] [place], [address] PLT Normal 150-450 [facility] Comment on above: Result Comment: Canc elled via OM: Order cancelled - Patient discharged Performed By: #### L 500.2500, L100.0100 ####[facility] [address] [place], [address] RBC Normal 4.2-5.4 [facility] Comment on above: Result Comment: Canc elled via OM: Order cancelled - Patient discharged Performed By: #### L 500.2500, L100.0100 ####[facility] [address] [place], [address] RDW CV Normal 11.6-14.6 [facility] Comment on above: Result Comment: Canc elled via OM: Order cancelled - Patient discharged Performed By: #### L 500.2500, L100.0100 ####[facility] [address] [place], [address] RDW SD Normal 35.1-43.9 [facility] Comment on above: Result Comment: Canc elled via OM: Order cancelled - Patient discharged Performed By: #### L 500.2500, L100.0100 ####[facility] [address] [place], [address] WBC Normal 4.4-11.0 [facility] Comment on above: Result Comment: Canc elled via OM: Order cancelled - Patient discharged Performed By: #### L 500.2500, L100.0100 ####[facility] [address] [place], [address] MR/BMS.BVSon 04-03-2025 MR/BMS.BVS Normal [facility] Basic Metabolic Profile (BMP )on 04-02-2025 BUN Normal 4-19 [facility] Comment on above: Result Comment: Canc elled via OM: Order cancelled - Patient discharged Performed By: #### L 500.2500, L100.0100 ####[facility] [address] [place], [address] BUN/CRE Normal 10-20 [facility] Comment on above: Result Comment: Canc elled via OM: Order cancelled - Patient discharged Performed By: #### L 500.2500, L100.0100 ####[facility] [address] [place], [address] Calcium Normal 7.6-11.0 [facility] Comment on above: Result Comment: Canc elled via OM: Order cancelled - Patient discharged Performed By: #### L 500.2500, L100.0100 ####[facility] [address] [place], [address] CL Normal 98-108 [facility] Comment on above: Result Comment: Canc elled via OM: Order cancelled - Patient discharged Performed By: #### L 500.2500, L100.0100 ####[facility] [address] [place], [address] CO2 Normal 21.0-32.0 [facility] Comment on above: Result Comment: Canc elled via OM: Order cancelled - Patient discharged Performed By: #### L 500.2500, L100.0100 ####[facility] [address] [place], [address] CREAT,SERUM Normal 0.70-1.20 [facility] Comment on above: Result Comment: Canc elled via OM: Order cancelled - Patient discharged Performed By: #### L 500.2500, L100.0100 ####[facility] [address] [place], [address] eGFR Normal >60 [facility] Comment on above: Result Comment: Canc elled via OM: Order cancelled - Patient discharged Performed By: #### L 500.2500, L100.0100 ####[facility] [address] [place], [address] GAP Normal 5-15 [facility] Comment on above: Result Comment: Canc elled via OM: Order cancelled - Patient discharged Performed By: #### L 500.2500, L100.0100 ####[facility] [address] [place], [address] GLU Normal 70-99 [facility] Comment on above: Result Comment: Canc elled via OM: Order cancelled - Patient discharged Performed By: #### L 500.2500, L100.0100 ####[facility] [address] [place], [address] Potassium Normal 3.3-5.1 [facility] Comment on above: Result Comment: Canc elled via OM: Order cancelled - Patient discharged Performed By: #### L 500.2500, L100.0100 ####[facility] [address] [place], [address] Basic Metabolic Profile (BMP) Normal 133-145 [facility] Comment on above: Result Comment: Canc elled via OM: Order cancelled - Patient discharged Performed By: #### L 500.2500, L100.0100 ####[facility] [address] [place], [address] CBC W/Diff, Automatedon 05-1 Absolute Neut Normal 2.0-7.7 [facility] Comment on above: Result Comment: Canc elled via OM: Order cancelled - Patient discharged Performed By: #### L 500.2500, L100.0100 ####[facility] [address] [place], [address] HCT Normal 37-47 [facility] Comment on above: Result Comment: Canc elled via OM: Order cancelled - Patient discharged Performed By: #### L 500.2500, L100.0100 ####[facility] [address] [place], [address] HGB Normal 12.0-15.0 [facility] Comment on above: Result Comment: Canc elled via OM: Order cancelled - Patient discharged Performed By: #### L 500.2500, L100.0100 ####[facility] [address] [place], [address] MCH Normal 27.0-32.0 [facility] Comment on above: Result Comment: Canc elled via OM: Order cancelled - Patient discharged Performed By: #### L 500.2500, L100.0100 ####[facility] [address] [place], [address] MCHC Normal 32-36 [facility] Comment on above: Result Comment: Canc elled via OM: Order cancelled - Patient discharged Performed By: #### L 500.2500, L100.0100 ####[facility] [address] [place], [address] MCV Normal 81-99 [facility] Comment on above: Result Comment: Canc elled via OM: Order cancelled - Patient discharged Performed By: #### L 500.2500, L100.0100 ####[facility] [address] [place], [address] NEUT% Normal 47-70 [facility] Comment on above: Result Comment: Canc elled via OM: Order cancelled - Patient discharged Performed By: #### L 500.2500, L100.0100 ####[facility] [address] [place], [address] PLT Normal 150-450 [facility] Comment on above: Result Comment: Canc elled via OM: Order cancelled - Patient discharged Performed By: #### L 500.2500, L100.0100 ####[facility] [address] [place], [address] RBC Normal 4.2-5.4 [facility] Comment on above: Result Comment: Canc elled via OM: Order cancelled - Patient discharged Performed By: #### L 500.2500, L100.0100 ####[facility] [address] [place], [address] RDW CV Normal 11.6-14.6 [facility] Comment on above: Result Comment: Canc elled via OM: Order cancelled - Patient discharged Performed By: #### L 500.2500, L100.0100 ####[facility] [address] [place], [address] RDW SD Normal 35.1-43.9 [facility] Comment on above: Result Comment: Canc elled via OM: Order cancelled - Patient discharged Performed By: #### L 500.2500, L100.0100 ####[facility] [address] [place], [address] WBC Normal 4.4-11.0 [facility] Comment on above: Result Comment: Canc elled via OM: Order cancelled - Patient discharged Performed By: #### L 500.2500, L100.0100 ####[facility] [address] [place], [address] CNOVon 03-27-2025 [facility] -------- GELY NEWMAN ([id number]) 1950 F Date Time Provider Department 03/27/25 10:00 AM YUMIKO WHITEHEAD During your visit today, we recorded the following information about you: Pulse Respiration Blood pressure 74/minute 16/minute 134/68 Yumiko Whitehead APRN.CNP 03/27/2025 11:01 AM Signed 03/26/2025 Patient presents with: ER F/U: [facility] ED -03/20/25 Multiple falls, gangrene SADIE feet SUBJECTIVE: This is a 75 year old that is here today for Above Complaints. HOSPITAL/ER FOLLOW UP: Reason for visit: Recurrent falls, Which facility: [facility] transferred to [facility] TCU Date of visit: 03/07/2025-03/11/2025 [facility] then to TCU 03/11/2025-03/19/2025 Diagnosis: UTI, Rhabdomyolysis, SHAYY, Chronic bilateral feet wounds, Anemia of chronic disease Testing done: Blood work, UA, XR hip, CXR Treatment given: IV rocephin, oral antibiotics, Blood transfusion, and PT Since discharge has been doing well. Taking her antibiotics as prescribed. Has been working with OT/PT. Needs order for wheeled walker today. Has follow-ups scheduled with Dr. Irene ( foot doctor) and infectious disease on 03/27/2025. Denies fevers, chills, recurrent falls since discharge. 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 Ch Frog Shaker, 90% blockage- unable to do stenting Diabetes mellitus type 2 in obese Diabetic feet (HCC) Gangrene (HCC) 2012 RIGHT FOOT Hypertension Mild non proliferative diabetic retinopathy (HCC) 06/11/2013 Both eyes, Dr. Ortiz [facility]-03/25/2020 left mild, right moderate Multiple thyroid nodules last US 01/2015 Peripheral artery disease (HCC) due to Diabetes mellitus, Dr. Kwaku Moscoso Rotator cuff syndrome of left shoulder Dr. [facility] ALLERGIES Sulfa (Sulfonamide Antibiotics) MEDICATIONS Current Outpatient Medications Medication Sig hydroCHLOROthiazide 25 mg tablet Take 1 tablet by mouth once daily. simvastatin (ZOCOR) 40 mg tablet Take 1 tablet by mouth daily at bedtime. lisinopril (ZESTRIL) 20 mg tablet Take 1 tablet by mouth once daily. glimepiride (AMARYL) 4 mg tablet Take 1 tablet by mouth daily with breakfast. metFORMIN (GLUCOPHAGE) 500 mg tablet Take 1 tablet by mouth two times a day with meals. estradiol (ESTRACE) 0.01 % (0.1 mg/gram) vaginal cream Use 1 g vaginally two times a week. Blood Pressure Test Kit-Medium kit 1 Device once daily. Dx: Essential hypertension clopidogrel (PLAVIX) 75 mg tablet Take 75 mg by mouth once daily. ferrous sulfate 325 mg (65 mg iron) tablet Take 325 mg by mouth daily with breakfast. Cholecalciferol, Vitamin D3, 25 mcg (1,000 unit) cap Take 1,000 Units by mouth once daily. SACCHAROMYCES BOULARDII (PROBIOTIC, S.BOULARDII, ORAL) Take 1 capsule by mouth once daily. Cranberry Extract 300 mg tab Take by mouth. acetaminophen (TYLENOL) 325 mg tablet Take 650 mg by mouth every 6 hours as needed. ascorbic acid, vitamin C, (VITAMIN C) 500 mg tablet Take 1 tablet by mouth once daily. Jfpwhghp-Avre-Yon-Folic Acid 18-0.4 mg tab Take 1 tablet by mouth once daily. metoprolol succinate ER (TOPROL XL) 50 mg 24 hr tablet Take 1 tablet by mouth once daily. omega-3 fatty acids 1,000 mg cap Take 1 capsule by mouth once daily. Aspirin 81 mg Tab Take 1 tablet by mouth once daily. Take with food. No current facility-administered medications for this visit. Medications and allergies reviewed by this provider. SOCIAL HISTORY Social History Tobacco Use Smoking status: Former Current packs/day: 0.00 Average packs/day: 0.5 packs/day for 45.0 years (22.5 ttl pk-yrs) Types: Cigarettes Start date: 12/20/1967 Quit date: 12/20/2012 Years since quittin.2 Smokeless tobacco: Never Substance Use Topics Alcohol use: No Drug use: No REVIEW OF SYSTEMS All other reviewed and negative other than HPI. OBJECTIVE: BP 134/68 Pulse 74 Resp 16 SpO2 99% . Vital signs reviewed by this provider. APPEARANCE Well appearing, alert, in no acute distress, well-hydrated, well nourished. EYES conjunctiva and sclera normal. HEART RRR with normal S1 and S2, no murmurs, no gallops, no JVD appreciated LUNG clear to auscultation. No wheezes, rhonchi or rales EXTREMITIES Bilateral feet wrapped SKIN Skin color, texture, turgor normal, no suspicious rashes or lesions Anxiety Screening Never done Lung Cancer Screening Never done Shingrix Vaccine(1 of 2) Never done DTaP,Tdap,Td Vaccine(2 - Td or Tdap) due on 04/24/2023 Urine Albumin:Creatinine Ratio due on 05/30/2024 Covid-19 Vaccine() due on 07/20/2024 Diabetic Foot Exam due on 04/02/2025 Mammogram Screening due on 06/03/2025 HbA1C due on 05/31/2025 Dilated Retinal Exam due on (more content not included)... [facility] C[facility] Telephone (FAMPWS) -------- GELY NEWMAN ([id number]) 1950 F Date Time Provider Department 03/27/25 YUMIKO WHITEHEAD During your visit today, we recorded the following information about you: Yumiko Whitehead APRN.MARK 03/27/2025 10:59 AM Signed Please fax printed order for walker to [employer]. In my outbox. Yumiko Whitehead APRN.Michaela Moffett MA 03/30/2025 10:04 AM Signed Order, OV, discharge summary faxed to [employer]. Michaela Millan MA Allergies As of Date: 03/27/2025 Noted Allergy Reaction SULFA (SULFONAMIDE ANTIBIOTICS) 01/13/2013 16 - Unknown Comments: childhood Date Reviewed: 03/27/2025 Reviewed by: Rachel Jacobs MA - Fully Assessed Prescriptions as of 03/30/2025 - amLODIPine (NORVASC) 5 mg tablet Take 5 mg by mouth once daily. - doxycycline monohydrate (MONODOX) 100 mg capsule Take 100 mg by mouth two times a day. - metroNIDAZOLE (FLAGYL) 500 mg tablet Take 500 mg by mouth three times a day. - cefdinir (OMNICEF) 300 mg capsule Take 300 mg by mouth two times a day. - nystatin (MYCOSTATIN) powder Apply to affected area two times a day. - metoprolol succinate ER (TOPROL XL) 25 mg 24 hr tablet Take 0.5 tablets by mouth once daily. - simvastatin (ZOCOR) 40 mg tablet Take 1 tablet by mouth daily at bedtime. - glimepiride (AMARYL) 4 mg tablet Take 1 tablet by mouth daily with breakfast. - metFORMIN (GLUCOPHAGE) 500 mg tablet Take 1 tablet by mouth two times a day with meals. - estradiol (ESTRACE) 0.01 % (0.1 mg/gram) vaginal cream Use 1 g vaginally two times a week. - Blood Pressure Test Kit-Medium kit 1 Device once daily. Dx: Essential hypertension - clopidogrel (PLAVIX) 75 mg tablet Take 75 mg by mouth once daily. - ferrous sulfate 325 mg (65 mg iron) tablet Take 325 mg by mouth daily with breakfast. - Cholecalciferol, Vitamin D3, 25 mcg (1,000 unit) cap Take 1,000 Units by mouth once daily. - SACCHAROMYCES BOULARDII (PROBIOTIC, S.BOULARDII, ORAL) Take 1 capsule by mouth once daily. - Cranberry Extract 300 mg tab Take by mouth. - acetaminophen (TYLENOL) 325 mg tablet Take 650 mg by mouth every 6 hours as needed. - ascorbic acid, vitamin C, (VITAMIN C) 500 mg tablet Take 1 tablet by mouth once daily. - Vxrzzepm-Quof-Apf-Folic Acid 18-0.4 mg tab Take 1 tablet by mouth once daily. - omega-3 fatty acids 1,000 mg cap Take 1 capsule by mouth once daily. - Aspirin 81 mg Tab Take 1 tablet by mouth once daily. Take with food. Problem List As Of Date 03/27/2025 Noted Resolved Peripheral vascular occlusive disease [I73.9] 01/13/2013 Diabetes mellitus type 2 with peripheral artery*01/28/2013 Hypertension [I10] 01/28/2013 Overweight (BMI 25.0-29.9) [E66.3] 05/01/2013 Dyslipidemia (high LDL; low HDL) [E78.5] 07/01/2013 Abnormal nuclear stress test [R94.39] 12/09/2013 Carotid atherosclerosis, bilateral [I65.23] 01/21/2015 Multinodular thyroid [E04.2] 02/26/2015 Essential hypertension [I10] 11/30/2015 10/24/2016 Occult blood in stools [R19.5] 10/05/2016 Coronary artery disease [I25.10] 10/24/2016 CKD stage G3b/A1, GFR 30-44 and albumin creatin*01/29/2017 Chronic osteomyelitis with draining sinus, left*01/29/2017 06/04/2024 Situational depression [F43.21] 01/29/2017 Benign paroxysmal positional vertigo [H81.10] 11/14/2017 11/30/2021 BPPV (benign paroxysmal positional vertigo), un*02/25/2018 Anemia [D64.9] 02/25/2018 Vitamin D deficiency [E55.9] 08/28/2018 Essential hypertension [I10] 08/28/2018 Infected sebaceous cyst [L72.3, L08.9] 02/26/2019 Coronary artery disease involving [place] heart *05/28/2019 Abnormal urine odor [R82.90] 05/28/2019 Stage 3 chronic kidney disease (HCC) [N18.30] 12/03/2019 Fatigue [R53.83] 12/03/2019 Arthritis, multiple joint involvement [M12.9] 05/31/2021 Recurrent UTI (urinary tract infection) [N39.0] 05/31/2021 Urgency incontinence [N39.41] 12/02/2021 Biceps rupture, proximal, left, initial encount*12/05/2022 Dizziness [R42] 12/05/2022 Chronic kidney disease, stage 3a (HCC) [N18.31] 12/05/2022 Chronic midline low back pain without sciatica *12/05/2023 Multiple thyroid nodules [E04.2] 12/05/2023 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*06/04/2024 Degeneration of intervertebral disc of lumbar r*12/05/2024 Encounter for screening mammogram for malignant*12/05/2024 Encounter Status:Closed by MICHAELA MILLAN on 03/30/25 Normal [facility] Basic Metabolic Profile (BMP )on 03-26-2025 BUN Normal 4-19 [facility] Comment on above: Result Comment: Canc elled via OM: Order cancelled - Patient discharged Performed By: #### L 500.2500, L100.0100 ####[facility] [address] [place], [address] BUN/CRE Normal 10-20 [facility] Comment on above: Result Comment: Canc elled via OM: Order cancelled - Patient discharged Performed By: #### L 500.2500, L100.0100 ####[facility] [address] [place], [address] Calcium Normal 7.6-11.0 [facility] Comment on above: Result Comment: Canc elled via OM: Order cancelled - Patient discharged Performed By: #### L 500.2500, L100.0100 ####[facility] [address] [place], [address] CL Normal 98-108 [facility] Comment on above: Result Comment: Canc elled via OM: Order cancelled - Patient discharged Performed By: #### L 500.2500, L100.0100 ####[facility] [address] [place], [address] CO2 Normal 21.0-32.0 [facility] Comment on above: Result Comment: Canc elled via OM: Order cancelled - Patient discharged Performed By: #### L 500.2500, L100.0100 ####[facility] [address] [place], [address] CREAT,SERUM Normal 0.70-1.20 [facility] Comment on above: Result Comment: Canc elled via OM: Order cancelled - Patient discharged Performed By: #### L 500.2500, L100.0100 ####[facility] [address] [place], [address] eGFR Normal >60 [facility] Comment on above: Result Comment: Canc elled via OM: Order cancelled - Patient discharged Performed By: #### L 500.2500, L100.0100 ####[facility] [address] [place], [address] GAP Normal 5-15 [facility] Comment on above: Result Comment: Canc elled via OM: Order cancelled - Patient discharged Performed By: #### L 500.2500, L100.0100 ####[facility] [address] [place], [address] GLU Normal 70-99 [facility] Comment on above: Result Comment: Canc elled via OM: Order cancelled - Patient discharged Performed By: #### L 500.2500, L100.0100 ####[facility] [address] [place], [address] Potassium Normal 3.3-5.1 [facility] Comment on above: Result Comment: Canc elled via OM: Order cancelled - Patient discharged Performed By: #### L 500.2500, L100.0100 ####[facility] [address] [place], [address] Basic Metabolic Profile (BMP) Normal 133-145 [facility] Comment on above: Result Comment: Canc elled via OM: Order cancelled - Patient discharged Performed By: #### L 500.2500, L100.0100 ####[facility] [address] [place], [address] CBC W/Diff, Automatedon 05-0 8-2025 Absolute Neut Normal 2.0-7.7 [facility] Comment on above: Result Comment: Canc elled via OM: Order cancelled - Patient discharged Performed By: #### L 500.2500, L100.0100 ####[facility] [address] [place], [address] HCT Normal 37-47 [facility] Comment on above: Result Comment: Canc elled via OM: Order cancelled - Patient discharged Performed By: #### L 500.2500, L100.0100 ####[facility] [address] [place], [address] HGB Normal 12.0-15.0 [facility] Comment on above: Result Comment: Canc elled via OM: Order cancelled - Patient discharged Performed By: #### L 500.2500, L100.0100 ####[facility] [address] [place], [address] MCH Normal 27.0-32.0 [facility] Comment on above: Result Comment: Canc elled via OM: Order cancelled - Patient discharged Performed By: #### L 500.2500, L100.0100 ####[facility] [address] [place], [address] MCHC Normal 32-36 [facility] Comment on above: Result Comment: Canc elled via OM: Order cancelled - Patient discharged Performed By: #### L 500.2500, L100.0100 ####[facility] [address] [place], [address] MCV Normal 81-99 [facility] Comment on above: Result Comment: Canc elled via OM: Order cancelled - Patient discharged Performed By: #### L 500.2500, L100.0100 ####[facility] [address] [place], [address] NEUT% Normal 47-70 [facility] Comment on above: Result Comment: Canc elled via OM: Order cancelled - Patient discharged Performed By: #### L 500.2500, L100.0100 ####[facility] [address] [place], [address] PLT Normal 150-450 [facility] Comment on above: Result Comment: Canc elled via OM: Order cancelled - Patient discharged Performed By: #### L 500.2500, L100.0100 ####[facility] [address] [place], [address] RBC Normal 4.2-5.4 [facility] Comment on above: Result Comment: Canc elled via OM: Order cancelled - Patient discharged Performed By: #### L 500.2500, L100.0100 ####[facility] [address] [place], [address] RDW CV Normal 11.6-14.6 [facility] Comment on above: Result Comment: Canc elled via OM: Order cancelled - Patient discharged Performed By: #### L 500.2500, L100.0100 ####[facility] [address] [place], [address] RDW SD Normal 35.1-43.9 [facility] Comment on above: Result Comment: Canc elled via OM: Order cancelled - Patient discharged Performed By: #### L 500.2500, L100.0100 ####[facility] [address] [place], [address] WBC Normal 4.4-11.0 [facility] Comment on above: Result Comment: Canc elled via OM: Order cancelled - Patient discharged Performed By: #### L 500.2500, L100.0100 ####[facility] [address] [place], [address] [facility] Telephone (FAMPWS) -------- GELY NEWMAN ([id number]) 1950 F Date Time Provider Department 03/26/25 RISHI VASQUEZ FAMPWS During your visit today, we recorded the following information about you: Lebron Jacome, RN 03/26/2025 12:50 PM Signed [facility] HH- reporting updated POC: plans to see pt 1 x week for 1 week then 2 x week for 2 weeks, then 1 x week for 1 week with focus on laundry and equipment training. Reports pt's BP today was 163/67 today. Pt was asymptomatic. Reports pt would benefit from a front wheeled walker. Pt is using her 's walker. Pt's and the walker is not in good shape. Reports pt is going to talk to provider at [facility] tomorrow about getting a front wheeled walker. No call back needed if pcp agrees. Clary Andres APRN.MARK 03/26/2025 1:31 PM Signed Agree. BP will be reassessed at appointment tomorrow. Let us know if not addressed at appointment tomorrow. Thank you, Clary Andres APRN.[employer] Allergies As of Date: 03/26/2025 Noted Allergy Reaction SULFA (SULFONAMIDE ANTIBIOTICS) 01/13/2013 16 - Unknown Comments: childhood Date Reviewed: 12/05/2024 Reviewed by: Nasim López LPN - Fully Assessed Reason for Visit: Patient Update [1234] Prescriptions as of 03/26/2025 - hydroCHLOROthiazide 25 mg tablet Take 1 tablet by mouth once daily. - simvastatin (ZOCOR) 40 mg tablet Take 1 tablet by mouth daily at bedtime. - lisinopril (ZESTRIL) 20 mg tablet Take 1 tablet by mouth once daily. - glimepiride (AMARYL) 4 mg tablet Take 1 tablet by mouth daily with breakfast. - metFORMIN (GLUCOPHAGE) 500 mg tablet Take 1 tablet by mouth two times a day with meals. - estradiol (ESTRACE) 0.01 % (0.1 mg/gram) vaginal cream Use 1 g vaginally two times a week. - Blood Pressure Test Kit-Medium kit 1 Device once daily. Dx: Essential hypertension - clopidogrel (PLAVIX) 75 mg tablet Take 75 mg by mouth once daily. - ferrous sulfate 325 mg (65 mg iron) tablet Take 325 mg by mouth daily with breakfast. - Cholecalciferol, Vitamin D3, 25 mcg (1,000 unit) cap Take 1,000 Units by mouth once daily. - SACCHAROMYCES BOULARDII (PROBIOTIC, S.BOULARDII, ORAL) Take 1 capsule by mouth once daily. - Cranberry Extract 300 mg tab Take by mouth. - acetaminophen (TYLENOL) 325 mg tablet Take 650 mg by mouth every 6 hours as needed. - ascorbic acid, vitamin C, (VITAMIN C) 500 mg tablet Take 1 tablet by mouth once daily. - Jlknaelx-Noqv-Wjn-Folic Acid 18-0.4 mg tab Take 1 tablet by mouth once daily. - metoprolol succinate ER (TOPROL XL) 50 mg 24 hr tablet Take 1 tablet by mouth once daily. - omega-3 fatty acids 1,000 mg cap Take 1 capsule by mouth once daily. - Aspirin 81 mg Tab Take 1 tablet by mouth once daily. Take with food. Problem List As Of Date 03/26/2025 Noted Resolved Peripheral vascular occlusive disease [I73.9] 01/13/2013 Diabetes mellitus type 2 with peripheral artery*01/28/2013 Hypertension [I10] 01/28/2013 Overweight (BMI 25.0-29.9) [E66.3] 05/01/2013 Dyslipidemia (high LDL; low HDL) [E78.5] 07/01/2013 Abnormal nuclear stress test [R94.39] 12/09/2013 Carotid atherosclerosis, bilateral [I65.23] 01/21/2015 Multinodular thyroid [E04.2] 02/26/2015 Essential hypertension [I10] 11/30/2015 10/24/2016 Occult blood in stools [R19.5] 10/05/2016 Coronary artery disease [I25.10] 10/24/2016 CKD stage G3b/A1, GFR 30-44 and albumin creatin*01/29/2017 Chronic osteomyelitis with draining sinus, left*01/29/2017 06/04/2024 Situational depression [F43.21] 01/29/2017 Benign paroxysmal positional vertigo [H81.10] 11/14/2017 11/30/2021 BPPV (benign paroxysmal positional vertigo), un*02/25/2018 Anemia [D64.9] 02/25/2018 Vitamin D deficiency [E55.9] 08/28/2018 Essential hypertension [I10] 08/28/2018 Infected sebaceous cyst [L72.3, L08.9] 02/26/2019 Coronary artery disease involving [place] heart *05/28/2019 Abnormal urine odor [R82.90] 05/28/2019 Stage 3 chronic kidney disease (HCC) [N18.30] 12/03/2019 Fatigue [R53.83] 12/03/2019 Arthritis, multiple joint involvement [M12.9] 05/31/2021 Recurrent UTI (urinary tract infection) [N39.0] 05/31/2021 Urgency incontinence [N39.41] 12/02/2021 Biceps rupture, proximal, left, initial encount*12/05/2022 Dizziness [R42] 12/05/2022 Chronic kidney disease, stage 3a (HCC) [N18.31] 12/05/2022 Chronic midline low back pain without sciatica *12/05/2023 Multiple thyroid nodules [E04.2] 12/05/2023 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*06/04/2024 Degeneration of intervertebral disc of lumbar r*12/05/2024 Encounter for screening mammogram for malignant*12/05/2024 Encounter Status:Closed by SELMA GALEANO on 03/26/25 [facility] CNPN Telephone (FAMPWS) -------- GELY NEWMAN ([id number]) 1950 F Date Time Provider Department 03/24/25 [facility] During your visit today, we recorded the following information about you: Clemencia Chapman RN 03/24/2025 3:02 PM Signed [facility] calling from [facility] to report plan of care for patient and PT will visit patient 2 times a week for two weeks. PT will work with patient on functional mobility. No call back needed. GORGE Bo Jordan L, DO 03/24/2025 5:38 PM Signed Noted Rishi Vasquez DO Allergies As of Date: 03/24/2025 Noted Allergy Reaction SULFA (SULFONAMIDE ANTIBIOTICS) 01/13/2013 16 - Unknown Comments: childhood Date Reviewed: 12/05/2024 Reviewed by: Nasim López LPN - Fully Assessed Reason for Visit: [facility] PT POC [Other] Prescriptions as of 03/25/2025 - hydroCHLOROthiazide 25 mg tablet Take 1 tablet by mouth once daily. - simvastatin (ZOCOR) 40 mg tablet Take 1 tablet by mouth daily at bedtime. - lisinopril (ZESTRIL) 20 mg tablet Take 1 tablet by mouth once daily. - glimepiride (AMARYL) 4 mg tablet Take 1 tablet by mouth daily with breakfast. - metFORMIN (GLUCOPHAGE) 500 mg tablet Take 1 tablet by mouth two times a day with meals. - estradiol (ESTRACE) 0.01 % (0.1 mg/gram) vaginal cream Use 1 g vaginally two times a week. - Blood Pressure Test Kit-Medium kit 1 Device once daily. Dx: Essential hypertension - clopidogrel (PLAVIX) 75 mg tablet Take 75 mg by mouth once daily. - ferrous sulfate 325 mg (65 mg iron) tablet Take 325 mg by mouth daily with breakfast. - Cholecalciferol, Vitamin D3, 25 mcg (1,000 unit) cap Take 1,000 Units by mouth once daily. - SACCHAROMYCES BOULARDII (PROBIOTIC, S.BOULARDII, ORAL) Take 1 capsule by mouth once daily. - Cranberry Extract 300 mg tab Take by mouth. - acetaminophen (TYLENOL) 325 mg tablet Take 650 mg by mouth every 6 hours as needed. - ascorbic acid, vitamin C, (VITAMIN C) 500 mg tablet Take 1 tablet by mouth once daily. - Fncmiihp-Xrbx-Gkg-Folic Acid 18-0.4 mg tab Take 1 tablet by mouth once daily. - metoprolol succinate ER (TOPROL XL) 50 mg 24 hr tablet Take 1 tablet by mouth once daily. - omega-3 fatty acids 1,000 mg cap Take 1 capsule by mouth once daily. - Aspirin 81 mg Tab Take 1 tablet by mouth once daily. Take with food. 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*01/28/2013 Hypertension [I10] 01/28/2013 Overweight (BMI 25.0-29.9) [E66.3] 05/01/2013 Dyslipidemia (high LDL; low HDL) [E78.5] 07/01/2013 Abnormal nuclear stress test [R94.39] 12/09/2013 Carotid atherosclerosis, bilateral [I65.23] 01/21/2015 Multinodular thyroid [E04.2] 02/26/2015 Essential hypertension [I10] 11/30/2015 10/24/2016 Occult blood in stools [R19.5] 10/05/2016 Coronary artery disease [I25.10] 10/24/2016 CKD stage G3b/A1, GFR 30-44 and albumin creatin*01/29/2017 Chronic osteomyelitis with draining sinus, left*01/29/2017 06/04/2024 Situational depression [F43.21] 01/29/2017 Benign paroxysmal positional vertigo [H81.10] 11/14/2017 11/30/2021 BPPV (benign paroxysmal positional vertigo), un*02/25/2018 Anemia [D64.9] 02/25/2018 Vitamin D deficiency [E55.9] 08/28/2018 Essential hypertension [I10] 08/28/2018 Infected sebaceous cyst [L72.3, L08.9] 02/26/2019 Coronary artery disease involving [place] heart *05/28/2019 Abnormal urine odor [R82.90] 05/28/2019 Stage 3 chronic kidney disease (HCC) [N18.30] 12/03/2019 Fatigue [R53.83] 12/03/2019 Arthritis, multiple joint involvement [M12.9] 05/31/2021 Recurrent UTI (urinary tract infection) [N39.0] 05/31/2021 Urgency incontinence [N39.41] 12/02/2021 Biceps rupture, proximal, left, initial encount*12/05/2022 Dizziness [R42] 12/05/2022 Chronic kidney disease, stage 3a (HCC) [N18.31] 12/05/2022 Chronic midline low back pain without sciatica *12/05/2023 Multiple thyroid nodules [E04.2] 12/05/2023 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*06/04/2024 Degeneration of intervertebral disc of lumbar r*12/05/2024 Encounter for screening mammogram for malignant*12/05/2024 Encounter Status:Closed by CLEMENCIA CHAPMAN on 03/25/25 [facility] [place] 03-23-2025 MARKN Telephone (FAMPWS) -------- GELY NEWMAN ([id number]) 1950 F Date Time Provider Department 03/23/25 RIHSI VASQUEZ During your visit today, we recorded the following information about you: Melly Pinon LPN 03/23/2025 1:34 PM Signed Tatum with [facility] Nursing calls to report she saw pt today for start of care. Nursing will see pt once a week x 2 weeks then twice a week x 1 week, then once a week x 1. Nursing will be doing wound care and teaching wound prevention and education. 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 - simvastatin (ZOCOR) 40 mg tablet Take 1 tablet by mouth daily at bedtime. - lisinopril (ZESTRIL) 20 mg tablet Take 1 tablet by mouth once daily. - glimepiride (AMARYL) 4 mg tablet Take 1 tablet by mouth daily with breakfast. - metFORMIN (GLUCOPHAGE) 500 mg tablet Take 1 tablet by mouth two times a day with meals. - estradiol (ESTRACE) 0.01 % (0.1 mg/gram) vaginal cream Use 1 g vaginally two times a week. - Blood Pressure Test Kit-Medium kit 1 Device once daily. Dx: Essential hypertension - clopidogrel (PLAVIX) 75 mg tablet Take 75 mg by mouth once daily. - ferrous sulfate 325 mg (65 mg iron) tablet Take 325 mg by mouth daily with breakfast. - Cholecalciferol, Vitamin D3, 25 mcg (1,000 unit) cap Take 1,000 Units by mouth once daily. - SACCHAROMYCES BOULARDII (PROBIOTIC, S.BOULARDII, ORAL) Take 1 capsule by mouth once daily. - Cranberry Extract 300 mg tab Take by mouth. - acetaminophen (TYLENOL) 325 mg tablet Take 650 mg by mouth every 6 hours as needed. - ascorbic acid, vitamin C, (VITAMIN C) 500 mg tablet Take 1 tablet by mouth once daily. - Oqfivojb-Ljfl-Xsv-Folic Acid 18-0.4 mg tab Take 1 tablet by mouth once daily. - metoprolol succinate ER (TOPROL XL) 50 mg 24 hr tablet Take 1 tablet by mouth once daily. - omega-3 fatty acids 1,000 mg cap Take 1 capsule by mouth once daily. - Aspirin 81 mg Tab Take 1 tablet by mouth once daily. Take with food. Problem List As Of Date 03/23/2025 Noted Resolved Peripheral vascular occlusive disease [I73.9] 01/13/2013 Diabetes mellitus type 2 with peripheral artery*01/28/2013 Hypertension [I10] 01/28/2013 Overweight (BMI 25.0-29.9) [E66.3] 05/01/2013 Dyslipidemia (high LDL; low HDL) [E78.5] 07/01/2013 Abnormal nuclear stress test [R94.39] 12/09/2013 Carotid atherosclerosis, bilateral [I65.23] 01/21/2015 Multinodular thyroid [E04.2] 02/26/2015 Essential hypertension [I10] 11/30/2015 10/24/2016 Occult blood in stools [R19.5] 10/05/2016 Coronary artery disease [I25.10] 10/24/2016 CKD stage G3b/A1, GFR 30-44 and albumin creatin*01/29/2017 Chronic osteomyelitis with draining sinus, left*01/29/2017 06/04/2024 Situational depression [F43.21] 01/29/2017 Benign paroxysmal positional vertigo [H81.10] 11/14/2017 11/30/2021 BPPV (benign paroxysmal positional vertigo), un*02/25/2018 Anemia [D64.9] 02/25/2018 Vitamin D deficiency [E55.9] 08/28/2018 Essential hypertension [I10] 08/28/2018 Infected sebaceous cyst [L72.3, L08.9] 02/26/2019 Coronary artery disease involving [place] heart *05/28/2019 Abnormal urine odor [R82.90] 05/28/2019 Stage 3 chronic kidney disease (HCC) [N18.30] 12/03/2019 Fatigue [R53.83] 12/03/2019 Arthritis, multiple joint involvement [M12.9] 05/31/2021 Recurrent UTI (urinary tract infection) [N39.0] 05/31/2021 Urgency incontinence [N39.41] 12/02/2021 Biceps rupture, proximal, left, initial encount*12/05/2022 Dizziness [R42] 12/05/2022 Chronic kidney disease, stage 3a (HCC) [N18.31] 12/05/2022 Chronic midline low back pain without sciatica *12/05/2023 Multiple thyroid nodules [E04.2] 12/05/2023 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, [address] [facility] CNPN Telephone (JOHANAWS) -------- GELY NEWMAN ([id number]) 1950 F Date Time Provider Department 03/20/25 [facility]ISHI [facility] During your visit today, we recorded the following information about you: Clemencia Chapman, GORGE 03/20/2025 12:55 PM Signed Yvonne with [facility] calls to ask if provider would be willing to follow their discharge orders for SN, PT, OT. Patient discharged home today from [facility] after having hospitalization and rehab for falls and UTI. Call back number is [phone]. GORGE Bo Jordan L, DO 03/20/2025 5:03 PM Signed Yes DO Kit Ernst Krystle, RN 03/23/2025 8:30 AM Signed Call placed to [facility] and notified of below. Clemencia Chapman RN Allergies As of Date: 03/20/2025 Noted Allergy Reaction SULFA (SULFONAMIDE ANTIBIOTICS) 01/13/2013 18 - Unknown Comments: childhood Date Reviewed: 12/05/2024 Reviewed by: Nasim López LPN - Fully Assessed Reason for Visit: Orders [681] Prescriptions as of 03/23/2025 - hydroCHLOROthiazide 25 mg tablet Take 1 tablet by mouth once daily. - simvastatin (ZOCOR) 40 mg tablet Take 1 tablet by mouth daily at bedtime. - lisinopril (ZESTRIL) 20 mg tablet Take 1 tablet by mouth once daily. - glimepiride (AMARYL) 4 mg tablet Take 1 tablet by mouth daily with breakfast. - metFORMIN (GLUCOPHAGE) 500 mg tablet Take 1 tablet by mouth two times a day with meals. - estradiol (ESTRACE) 0.01 % (0.1 mg/gram) vaginal cream Use 1 g vaginally two times a week. - Blood Pressure Test Kit-Medium kit 1 Device once daily. Dx: Essential hypertension - clopidogrel (PLAVIX) 75 mg tablet Take 75 mg by mouth once daily. - ferrous sulfate 325 mg (65 mg iron) tablet Take 325 mg by mouth daily with breakfast. - Cholecalciferol, Vitamin D3, 25 mcg (1,000 unit) cap Take 1,000 Units by mouth once daily. - SACCHAROMYCES BOULARDII (PROBIOTIC, S.BOULARDII, ORAL) Take 1 capsule by mouth once daily. - Cranberry Extract 300 mg tab Take by mouth. - acetaminophen (TYLENOL) 325 mg tablet Take 650 mg by mouth every 6 hours as needed. - ascorbic acid, vitamin C, (VITAMIN C) 500 mg tablet Take 1 tablet by mouth once daily. - Ybgkurld-Iftm-Xhz-Folic Acid 18-0.4 mg tab Take 1 tablet by mouth once daily. - metoprolol succinate ER (TOPROL XL) 50 mg 24 hr tablet Take 1 tablet by mouth once daily. - omega-3 fatty acids 1,000 mg cap Take 1 capsule by mouth once daily. - Aspirin 81 mg Tab Take 1 tablet by mouth once daily. Take with food. Problem List As Of Date 03/20/2025 Noted Resolved Peripheral vascular occlusive disease [I73.9] 01/13/2013 Diabetes mellitus type 2 with peripheral artery*01/28/2013 Hypertension [I10] 01/28/2013 Overweight (BMI 25.0-29.9) [E66.3] 05/01/2013 Dyslipidemia (high LDL; low HDL) [E78.5] 07/01/2013 Abnormal nuclear stress test [R94.39] 12/09/2013 Carotid atherosclerosis, bilateral [I65.23] 01/21/2015 Multinodular thyroid [E04.2] 02/26/2015 Essential hypertension [I10] 11/30/2015 10/24/2016 Occult blood in stools [R19.5] 10/05/2016 Coronary artery disease [I25.10] 10/24/2016 CKD stage G3b/A1, GFR 30-44 and albumin creatin*01/29/2017 Chronic osteomyelitis with draining sinus, left*01/29/2017 06/04/2024 Situational depression [F43.21] 01/29/2017 Benign paroxysmal positional vertigo [H81.10] 11/14/2017 11/30/2021 BPPV (benign paroxysmal positional vertigo), un*02/25/2018 Anemia [D64.9] 02/25/2018 Vitamin D deficiency [E55.9] 08/28/2018 Essential hypertension [I10] 08/28/2018 Infected sebaceous cyst [L72.3, L08.9] 02/26/2019 Coronary artery disease involving [place] heart *05/28/2019 Abnormal urine odor [R82.90] 05/28/2019 Stage 3 chronic kidney disease (HCC) [N18.30] 12/03/2019 Fatigue [R53.83] 12/03/2019 Arthritis, multiple joint involvement [M12.9] 05/31/2021 Recurrent UTI (urinary tract infection) [N39.0] 05/31/2021 Urgency incontinence [N39.41] 12/02/2021 Biceps rupture, proximal, left, initial encount*12/05/2022 Dizziness [R42] 12/05/2022 Chronic kidney disease, stage 3a (HCC) [N18.31] 12/05/2022 Chronic midline low back pain without sciatica *12/05/2023 Multiple thyroid nodules [E04.2] 12/05/2023 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*06/04/2024 Degeneration of intervertebral disc of lumbar r*12/05/2024 Encounter for screening mammogram for malignant*12/05/2024 Encounter Status:Closed by CLEMENCIA CHAPMAN on 03/23/25 Normal [facility] deOrdered By: Phong Solomon on 03-20-2025 Glucose [Mass/Vol] 155 mg/dL High 74-106 [facility] Comment on above: MANAGEMENT OF PATIEN T CARE PER NURSING PROTOCOL Absolute lymphocyte countOrd ered By: Phong Solomon on 03-19-2025 Lymphocytes Auto (Unsp spec) [#/Vol] 1.25 10*3/uL 0.83-4.51 [facility] Absolute neutrophil countOrd ered By: Phong Solomon on 03-19-2025 Neutrophils (Bld) [#/Vol] 3.5 10*3/uL 2.0-7.7 [facility] Anion gap in Serum or Plasma Ordered By: Phong Solomon on 03-19-2025 Anion gap [Moles/Vol] 8 mmol/L 5-15 [facility] Automated lymphocyte count a s percentage of total leukocytesOrdered By: Phong Solomon on 03-19-2025 Lymphocytes/100 WBC Auto (Unsp spec) 22.0 % 19-41 [facility] BRCon 03-19-2025 RC Normal [facility] Comment on above: Result Comment: [id number] AP RC TRANSFUSED 03/19/25 [id number] AP RC TRANSFUSED 03/19/25 1004 Performed By: #### B YOANA GARCESS ####[facility] [address] [place], [place], [address] BUN/creatinine ratioOrdered By: Phong Solomon on 03-19-2025 Urea nitrogen/Creatinine [Mass ratio] 22.6 mg/mg High 10-20 [facility] Basic Metabolic Profile (BMP )on 03-19-2025 BUN/CRE 22.6 RATIO High 10-20 [facility] Comment on above: Performed By: #### L 500.2500, L100.0100 ####[facility] [address] [place], [address] Calcium [Mass/Vol] 8.6 mg/dL Normal 7.6-11.0 [facility] Comment on above: Performed By: #### L 500.2500, L100.0100 ####[facility] [address] [place], [address] Chloride [Moles/Vol] 112 mmol/L High 98-108 [facility] Comment on above: Performed By: #### L 500.2500, L100.0100 ####[facility] [address] [place], [address] CO2 [Moles/Vol] 22.1 mmol/L Normal 21.0-32.0 [facility] Comment on above: Performed By: #### L 500.2500, L100.0100 ####[facility] [address] [place], [address] Creatinine [Mass/Vol] 1.47 mg/dL High 0.70-1.20 [facility] Comment on above: Performed By: #### L 500.2500, L100.0100 ####[facility] [address] [place], [address] ECRCL 35.30 ml/min Low 50-250 [facility] Comment on above: Performed By: #### L 500.2500, L100.0100 ####[facility] [address] [place], [address] GAP 8 Normal 5-15 [facility] Comment on above: Performed By: #### L 500.2500, L100.0100 ####[facility] [address] [place], [address] GFR/1.73 sq M.predicted among non-blacks MDRD (S/P/Bld) [Vol rate/Area] 37 mL/min/{1.73_m2} Low >60 [facility] Comment on above: Result Comment: mL/m in/1.73m2 CKD-EPI Creatinine Equation (2020) Performed By: #### L 500.2500, L100.0100 ####[facility] [address] [place], [address] Glucose [Mass/Vol] 111 mg/dL High 70-99 [facility] Comment on above: Performed By: #### L 500.2500, L100.0100 ####[facility] [address] [place], [address] Potassium [Moles/Vol] 4.2 mmol/L Normal 3.3-5.1 [facility] Comment on above: Performed By: #### L 500.2500, L100.0100 ####[facility] [address] [place], [address] Sodium [Moles/Vol] 142 mmol/L Normal 133-145 [facility] Comment on above: Performed By: #### L 500.2500, L100.0100 ####[facility] [address] [place], [address] Urea nitrogen [Mass/Vol] 33 mg/dL High 4-19 [facility] Comment on above: Performed By: #### L 500.2500, L100.0100 ####[facility] [address] [place], [address] Basophil percentageOrdered B y: Phong Servando on 03-19-2025 Basophils/100 WBC (Bld) 1.4 % High 0-1 [facility] Bedside Glucoseon 03-19-2025 FINGERSTICK GLU 230 mg/dL High 74-106 [facility] Comment on above: Result Comment: JEREMIAS GEMENT OF PATIENT CARE PER NURSING PROTOCOL Performed By: #### L 501.080 ####[facility] [address] [place], [address] FINGERSTICK GLU 330 mg/dL High 74-106 [facility] Comment on above: Result Comment: JEREMIAS GEMENT OF PATIENT CARE PER NURSING PROTOCOL Performed By: #### L 501.080 ####[facility] [address] [place], [address] FINGERSTICK GLU 238 mg/dL High 74-106 [facility] Comment on above: Result Comment: JEREMIAS GEMENT OF PATIENT CARE PER NURSING PROTOCOL Performed By: #### L 501.080 ####[facility] [address] [place], [address] FINGERSTICK GLU 103 mg/dL Normal 74-106 [facility] Comment on above: Result Comment: JEREMIAS GEMENT OF PATIENT CARE PER NURSING PROTOCOL Performed By: #### L 501.080 ####[facility] [address] [place], [address] FINGERSTICK GLU 64 mg/dL Low 74-106 [facility] Comment on above: Result Comment: JEREMIAS GEMENT OF PATIENT CARE PER NURSING PROTOCOL Performed By: #### L 501.080 ####[facility] [address] [place], [address] FINGERSTICK GLU 177 mg/dL High 74-106 [facility] Comment on above: Result Comment: JEREMIAS GEMENT OF PATIENT CARE PER NURSING PROTOCOL Performed By: #### L 501.080 ####[facility] [address] [place], [address] FINGERSTICK GLU 106 mg/dL Normal 74-106 [facility] Comment on above: Result Comment: JEREMIAS GEMENT OF PATIENT CARE PER NURSING PROTOCOL Performed By: #### L 501.080 ####[facility] [address] [place], [address] CBC W/Diff, Automatedon 05-0 1-5 Absolute Lymph 1.25 X10 3/uL Normal 0.83-4.51 [facility] Comment on above: Performed By: #### L 500.2500, L100.0100 ####[facility] [address] [place], [address] Absolute Neut 3.5 X10 3/uL Normal 2.0-7.7 [facility] Comment on above: Performed By: #### L 500.2500, L100.0100 ####[facility] [address] [place], [address] Basophils/100 WBC (Bld) 1.4 % High 0-1 [facility] Comment on above: Performed By: #### L 500.2500, L100.0100 ####[facility] [address] [place], [address] Eosinophils/100 WBC (Bld) 3.5 % Normal 0-5 [facility] Comment on above: Performed By: #### L 500.2500, L100.0100 ####[facility] [address] [place], [address] Erythrocyte distribution width (RBC) [Ratio] 16.2 % High 11.6-14.6 [facility] Comment on above: Performed By: #### L 500.2500, L100.0100 ####[facility] [address] [place], [address] Hematocrit (Bld) [Volume fraction] 24.1 % Low 37-47 [facility] Comment on above: Performed By: #### L 500.2500, L100.0100 ####[facility] [address] [place], [address] Hemoglobin (Bld) [Mass/Vol] 7.6 g/dL Low 12.0-15.0 [facility] Comment on above: Performed By: #### L 500.2500, L100.0100 ####[facility] [address] [place], [address] IG% 0.400 Normal 0.0-0.9 [facility] Comment on above: Result Comment: IG% - Immature Granulocytes (promyelocytes, myelocytes andmetamyelocytes) > 1% indicates that a LEFT SHIFT is Present. Performed By: #### L 500.2500, L100.0100 ####[facility] [address] [place], [address] Lymphocytes/100 WBC (Bld) 22.0 % Normal 19-41 [facility] Comment on above: Performed By: #### L 500.2500, L100.0100 ####[facility] [address] [place], [address] MCH (RBC) [Entitic mass] 29.1 pg Normal 27.0-32.0 [facility] Comment on above: Performed By: #### L 500.2500, L100.0100 ####[facility] [address] [place], [address] MCHC (RBC) [Mass/Vol] 31.5 g/dL Low 32-36 [facility] Comment on above: Performed By: #### L 500.2500, L100.0100 ####[facility] [address] [place], [address] MCV (RBC) [Entitic vol] 92.3 fL Normal 81-99 [facility] Comment on above: Performed By: #### L 500.2500, L100.0100 ####[facility] [address] [place], [address] Monocytes/100 WBC (Bld) 11.1 % High 0-10 [facility] Comment on above: Performed By: #### L 500.2500, L100.0100 ####[facility] [address] [place], [address] Neutrophils/100 WBC (Bld) 61.6 % Normal 47-70 [facility] Comment on above: Performed By: #### L 500.2500, L100.0100 ####[facility] [address] [place], [address] Nucleated RBC (Bld) [#/Vol] 0 10*3/uL Normal 0-5 [facility] Comment on above: Performed By: #### L 500.2500, L100.0100 ####[facility] [address] [place], [address] Platelet mean volume (Bld) [Entitic vol] 11.7 fL Normal 6.2-12.0 [facility] Comment on above: Performed By: #### L 500.2500, L100.0100 ####[facility] [address] [place], [address] Platelets (Bld) [#/Vol] 159 10*3/uL Normal 150-450 [facility] Comment on above: Performed By: #### L 500.2500, L100.0100 ####[facility] [address] [place], [address] RBC (Bld) [#/Vol] 2.61 10*6/uL Low 4.2-5.4 [facility] Comment on above: Performed By: #### L 500.2500, L100.0100 ####[facility] [address] [place], [address] RDW SD 52.6 fl High 35.1-43.9 [facility] Comment on above: Performed By: #### L 500.2500, L100.0100 ####[facility] [address] [place], [address] WBC (Bld) [#/Vol] 5.7 10*3/uL Normal 4.4-11.0 [facility] Comment on above: Performed By: #### L 500.2500, L100.0100 ####[facility] [address] [place], [address] CTA Abd w/Runoff W/WO Contra ston 03-19-2025 CTA Abd w/Runoff W/WO Contrast Normal [facility] Carbon dioxide, total [Moles /volume] in Central venous bloodOrdered By: Phong Solomon on 03-19-2025 CO2 [Moles/Vol] 22.1 mmol/L 21.0-32.0 [facility] Chloride assayOrdered By: Addy Solomon on 03-19-2025 Chloride [Moles/Vol] 112 mmol/L High 98-108 [facility] Eosinophil percentageOrdered By: Phong Solomon 03-19-2025 Eosinophils/100 WBC (Bld) 3.5 % 0-5 [facility] Erythrocyte distribution wid th ratioOrdered By: Phong Solomon on 03-19-2025 Erythrocyte distribution width (RBC) [Ratio] 16.2 % High 11.6-14.6 [facility] Erythrocyte distribution wid th standard deviationOrdered By: Phong Solomon 03-19-2025 Erythrocyte distribution width (RBC) [Ratio] 52.6 fl High 35.1-43.9 [facility] Glomerular filtration rate ( GFR) estimation/1.73 sq m using serum, plasma, or whole bOrdered By: Phong Solomon on 03-19-2025 GFR/1.73 sq M.predicted among non-blacks MDRD (S/P/Bld) [Vol rate/Area] 37 mL/min/{1.73_m2} Low >60 [facility] Comment on above: mL/min/1.73m2 CKD-EP I Creatinine Equation (2020) Hematocrit Auto (Bld) [Volum e fraction]Ordered By: Phong Solomon on 03-19-2025 Hematocrit (Bld) [Volume fraction] 24.1 % Low 37-47 [facility] Hemoglobin measurementOrdere d By: Phong Solomon on 03-19-2025 Hemoglobin (Bld) [Mass/Vol] 7.6 g/dL Low 12.0-15.0 [facility] Immature granulocytes/100 WB C Auto (Bld)Ordered By: Phong Solomon on 03-19-2025 Immature granulocytes/100 WBC (Bld) 0.400 % 0.0-0.9 [facility] Comment on above: IG% - Immature Granu locytes (promyelocytes, myelocytes and metamyelocytes) > 1% indicates that a LEFT SHIFT is Present. MCV (mean corpuscular volume ) determinationOrdered By: Phong Solomon on 03-19-2025 MCV (RBC) [Entitic vol] 92.3 fL 81-99 [facility] Mean corpuscular hemoglobin (MCH) determinationOrdered By: Phong Solmoon on 03-19-2025 MCH (RBC) [Entitic mass] 29.1 pg 27.0-32.0 [facility] Mean corpuscular hemoglobin concentration (MCHC) determinationOrdered By: Phong Solomon on 03-19-2025 MCHC (RBC) [Mass/Vol] 31.5 g/dL Low 32-36 [facility] Mean platelet volume determi nationOrdered By: Phong Solomon on 03-19-2025 Platelet mean volume (Bld) [Entitic vol] 11.7 fL 6.2-12.0 [facility] Monocyte percentageOrdered B y: Phong Solomon on 03-19-2025 Monocytes/100 WBC (Bld) 11.1 % High 0-10 [facility] Neutrophil percentageOrdered By: Phong Solomon on 03-19-2025 Neutrophils/100 WBC (Bld) 61.6 % 47-70 [facility] Nucleated red blood cell per centageOrdered By: Phong Solomon on 03-19-2025 Nucleated RBC/100 WBC (Bld) [Ratio] 0 % 0-5 [facility] Platelet countOrdered By: Addy Solomon on 03-19-2025 Platelets (Bld) [#/Vol] 159 10*3/uL 150-450 [facility] Potassium measurement (mass/ volume)Ordered By: Phong Solomon on 03-19-2025 Potassium (Unsp spec) [Mass/Vol] 4.2 mmol/L 3.3-5.1 [facility] RBC Auto (Bld) [#/Vol]Ordere d By: Phong Solomon on 03-19-2025 RBC (Bld) [#/Vol] 2.61 10*6/uL Low 4.2-5.4 [facility] Serum creatinine measurement (mass/volume)Ordered By: Phong Solomon on 03-19-2025 Creatinine [Mass/Vol] 1.47 mg/dL High 0.70-1.20 [facility] Serum glucose measurement (m ass/volume)Ordered By: Phong Servando on 03-19-2025 Glucose [Mass/Vol] 111 mg/dL High 70-99 [facility] Serum or plasma calcium natalia urement (mass/volume)Ordered By: Phong Servando on 03-19-2025 Calcium [Mass/Vol] 8.6 mg/dL 7.6-11.0 [facility] Serum or plasma urea nitroge n measurement (mass/volume)Ordered By: Phong Servando on 03-19-2025 Urea nitrogen [Mass/Vol] 33 mg/dL High 4-19 [facility] Sodium levelOrdered By: Phong Solomon on 03-19-2025 Sodium [Moles/Vol] 142 mmol/L 133-145 [facility] Stool Occult Blood iFOBon STOB Negative Normal [facility] Comment on above: Performed By: #### M 100.7900 ####[facility] [address] [place], [address] Stool gastrointestinal hemog lobin detection by immunologic methodOrdered By: Phong Servando on 03-19-2025 Lower GI hemoglobin IA Ql (Stl) [facility] Type AND Screenon 03-19-2025 Ab SCREEN GEL Negative Normal [facility] Comment on above: Order Comment: CMV N EG? NNumber of units to transfuse: 2Reason for Ordering Blood: AcuteAre the blood/blood products to be transfused? YIs the patient having/had surgery? NWglenn Fitzgerald Performed By: #### B RC, BTS ####[facility] [address] [place], [address] ABO and Rh group Nom (Bld) Blood group A Rh(D) positive Normal [facility] Comment on above: Order Comment: CMV N EG? NNumber of units to transfuse: 2Reason for Ordering Blood: AcuteAre the blood/blood products to be transfused? YIs the patient having/had surgery? Jordan Fitzgerald Performed By: #### B MILI BTS ####[facility] [address] [place], [address] White blood cell (WBC) count Ordered By: Phong Solomon on 03-19-2025 WBC (Bld) [#/Vol] 5.7 10*3/uL 4.4-11.0 [facility] Bedside Glucoseon 03-18-2025 FINGERSTICK GLU 158 mg/dL High [address] [place] [address] Comment on above: Result Comment: JEREMIAS GEMENT OF PATIENT CARE PER NURSING PROTOCOL Performed By: #### L 501.080 ####[facility] [address] [facility] [address] FINGERSTICK GLU 205 mg/dL High [address] [place] [address] Comment on above: Result Comment: JEREMIAS GEMENT OF PATIENT CARE PER NURSING PROTOCOL Performed By: #### L 501.080 ####[facility] [address] [place], [address] FINGERSTICK GLU 235 mg/dL High [address] [place] [address] Comment on above: Result Comment: JEREMIAS GEMENT OF PATIENT CARE PER NURSING PROTOCOL Performed By: #### L 501.080 ####[facility] [address] [place], [address] FINGERSTICK GLU 89 mg/dL Normal [address] [place] [address] Comment on above: Result Comment: JEREMIAS GEMENT OF PATIENT CARE PER NURSING PROTOCOL Performed By: #### L 501.080 ####[facility] [address] [place], [address] Bedside Glucoseon 03-17-2025 FINGERSTICK GLU 129 mg/dL High [address] [place] [address] Comment on above: Result Comment: JEREMIAS GEMENT OF PATIENT CARE PER NURSING PROTOCOL Performed By: #### L 501.080 ####[facility] [address] [place], [address] FINGERSTICK GLU 101 mg/dL Normal 74-106 [facility] Comment on above: Result Comment: JEREMIAS GEMENT OF PATIENT CARE PER NURSING PROTOCOL Performed By: #### L 501.080 ####[facility] [address] [place], [address] FINGERSTICK GLU 120 mg/dL High 74-106 [facility] Comment on above: Result Comment: JEREMIAS GEMENT OF PATIENT CARE PER NURSING PROTOCOL Performed By: #### L 501.080 ####[facility] [address] [place], [address] Bedside Glucoseon 03-16-2025 FINGERSTICK GLU 154 mg/dL High 74-106 [facility] Comment on above: Result Comment: JEREMIAS GEMENT OF PATIENT CARE PER NURSING PROTOCOL Performed By: #### L 501.080 ####[facility] [address] [place], [address] FINGERSTICK GLU 127 mg/dL High 74-106 [facility] Comment on above: Result Comment: JEREMIAS GEMENT OF PATIENT CARE PER NURSING PROTOCOL Performed By: #### L 501.080 ####[facility] [address] [place], [address] FINGERSTICK GLU 162 mg/dL High 74-106 [facility] Comment on above: Result Comment: JEREMIAS GEMENT OF PATIENT CARE PER NURSING PROTOCOL Performed By: #### L 501.080 ####[facility] [address] [place], [address] FINGERSTICK GLU 120 mg/dL High 74-106 [facility] Comment on above: Result Comment: JEREMIAS GEMENT OF PATIENT CARE PER NURSING PROTOCOL Performed By: #### L 501.080 ####[facility] [address] [place], [address] Bedside Glucoseon 03-15-2025 FINGERSTICK GLU 247 mg/dL High [address] [place] [address] Comment on above: Result Comment: JEREMIAS GEMENT OF PATIENT CARE PER NURSING PROTOCOL Performed By: #### L 501.080 ####[facility] [address] [place], [address] FINGERSTICK GLU 256 mg/dL High [address] [place] [address] Comment on above: Result Comment: JEREMIAS GEMENT OF PATIENT CARE PER NURSING PROTOCOL Performed By: #### L 501.080 ####[facility] [address] [place], [address] FINGERSTICK GLU 286 mg/dL High [address] [place] [address] Comment on above: Result Comment: JEREMIAS GEMENT OF PATIENT CARE PER NURSING PROTOCOL Performed By: #### L 501.080 ####[facility] [address] [place], [address] FINGERSTICK GLU 161 mg/dL [address] Comment on above: Result Comment: JEREMIAS GEMENT OF PATIENT CARE PER NURSING PROTOCOL Performed By: #### L 501.080 ####[facility] [address] [place], [address] Bedside Glucoseon 03-14-2025 FINGERSTICK GLU 228 mg/dL High [address] [place] [address] Comment on above: Result Comment: JEREMIAS GEMENT OF PATIENT CARE PER NURSING PROTOCOL Performed By: #### L 501.080 ####[facility] [address] [place], [address] FINGERSTICK GLU 201 mg/dL [address] Comment on above: Result Comment: JEREMIAS GEMENT OF PATIENT CARE PER NURSING PROTOCOL Performed By: #### L 501.080 ####[facility] [address] [place], [address] FINGERSTICK GLU 204 mg/dL High [address] [place] [address] Comment on above: Result Comment: JEREMIAS GEMENT OF PATIENT CARE PER NURSING PROTOCOL Performed By: #### L 501.080 ####[facility] [address] [place], [address] FINGERSTICK GLU 163 mg/dL High [address] [facility] Comment on above: Result Comment: JEREMIAS GEMENT OF PATIENT CARE PER NURSING PROTOCOL Performed By: #### L 501.080 ####[facility] [address] [place], [address] Bedside Glucoseon 03-13-2025 FINGERSTICK GLU 258 mg/dL High -[address] [place] [address] Comment on above: Result Comment: JEREMIAS GEMENT OF PATIENT CARE PER NURSING PROTOCOL Performed By: #### L 501.080 ####[facility] [address] [place], [address] FINGERSTICK GLU 286 mg/dL High [facility]106 [facility] Comment on above: Result Comment: JEREMIAS GEMENT OF PATIENT CARE PER NURSING PROTOCOL Performed By: #### L 501.080 ####[facility] [address] [place], [address] FINGERSTICK GLU 217 mg/dL High [facility]106 [facility] Comment on above: Result Comment: JEREMIAS GEMENT OF PATIENT CARE PER NURSING PROTOCOL Performed By: #### L 501.080 ####[facility] [address] [place], [address] FINGERSTICK GLU 132 mg/dL High -[address] [place] [address] Comment on above: Result Comment: JEREIMAS GEMENT OF PATIENT CARE PER NURSING PROTOCOL Performed By: #### L 501.080 ####[facility] [address] [place], [address] Calculated very low density lipoprotein (VLDL) cholesterol measurementOrdered By: Phong Solomon on 03-13-2025 Calculated very low density lipoprotein (VLDL) cholesterol measurement 25 mg/dL 5-40 [facility] Consultation - Surgicalon Consultation - Surgical Normal [facility] LDL calc ser/plasOrdered By: Phong Solomon on 03-13-2025 Cholesterol in LDL [Mass/Vol] 39 mg/dL [facility] Comment on above: Stduunwwuu=834-558 m g/dL & Higher Ypbx=302 mg/dL or greater Lipid Profileon 03-13-2025 CHOL:HDL 2.85 Normal [facility] Comment on above: Performed By: #### L 500.4100 ####[facility] [address] [place], [place], [phone]) Cholesterol [Mass/Vol] 99 mg/dL Normal <=200 [facility] Comment on above: Result Comment: Chol esterol level, Desirable <200 mg/dLBorderline high cholesterol 200-239 mg/dLHigh cholesterol >=240 mg/dLRecommendations of the NCEP Adult Treatment Panel for thefollowing risk-cutoff thresholds for the [place] Americanpulation. Performed By: #### L 500.4100 ####[facility] [address] [place], [place], [phone]) Cholesterol in HDL [Mass/Vol] 35 mg/dL Low [facility] Comment on above: Result Comment: Ligia onal Cholesterol Education Program (NCEP) guidelines:<40 mg/dL: Low HDL-cholesterol (major risk factor for CHD)>= 60 mg/dL: High HDL-cholesterol (negative risk factor forCHD)HDL-cholesterol is affected by a number of factors, e.g.smoking, exercise, hormones, sex and age. Performed By: #### L 500.4100 ####[facility] [address] [place], [address] Cholesterol in LDL [Mass/Vol] 39 mg/dL Normal [facility] Comment on above: Result Comment: Bord tbnyfi=313-746 mg/dL Higher Maba=443 mg/dL or greater Performed By: #### L 500.4100 ####[facility] [address] [place], [address] Cholesterol in VLDL [Mass/Vol] 25 mg/dL Normal 5-40 [facility] Comment on above: Performed By: #### L 500.4100 ####[facility] [address] [facility] [address] [place], [place], [address] Triglyceride [Mass/Vol] 126 mg/dL Normal [facility] Comment on above: Result Comment: The drugs N-Acetylcysteine and Metamizole may falselydepress this assay.Normal range: <150 mg/dLBorderline High: 150-199 mg/dLHigh: 200-499 mg/dLVery High: >500 mg/dL Performed By: #### L 500.4100 ####[facility] [address] [facility] [address] [place], [place], [address] Screening total cholesterol/ high density lipoprotein (HDL) cholesterol ratioOrdered By: Phong Solomon on 03-13-2025 Cholesterol.total/Chol esterol in HDL [Mass ratio] 2.85 {ratio} [facility] Serum or plasma cholesterol in HDL measurement (mass/volume)Ordered By: Phong Solomon on 03-13-2025 Cholesterol in HDL [Mass/Vol] 35 mg/dL Low >40 [facility] Comment on above: National Cholesterol Education Program (NCEP) guidelines:<40 mg/dL: Low HDL-cholesterol (major risk factor for CHD)>= 60 mg/dL: High HDL-cholesterol (negative risk factor for CHD)HDL-cholesterol is affected by a number of factors, e.g. smoking, exercise, hormones, sex and age. Serum or plasma cholesterol measurement (mass/volume)Ordered By: Phong Solomon on 03-13-2025 Cholesterol [Mass/Vol] 99 mg/dL <201 [facility] Comment on above: Cholesterol level, D esirable <200 mg/dLBorderline high cholesterol 200-239 mg/dLHigh cholesterol >=240 mg/dLRecommendations of the NCEP Adult Treatment Panel for the following risk-cutoff thresholds for the [place] population. Triglycerides measurementOrd ered By: Phong Solomon on 03-13-2025 Triglyceride [Mass/Vol] 126 mg/dL <199 [facility] Comment on above: The drugs N-Acetylcy steine and Metamizole may falsely depress this assay. Normal range: <150 mg/dLBorderline High: 150-199 mg/dLHigh: 200-499 mg/dLVery High: >500 mg/dL Basic Metabolic Profile (BMP )on 03-12-2025 BUN/CRE 33.8 RATIO High 10-20 [facility] Comment on above: Performed By: #### L 500.2500, L100.0100 ####[facility] [address] [place], [address] Calcium [Mass/Vol] 8.9 mg/dL Normal 7.6-11.0 [facility] Comment on above: Performed By: #### L 500.2500, L100.0100 ####[facility] [address] [place], [address] Chloride [Moles/Vol] 110 mmol/L High 98-108 [facility] Comment on above: Performed By: #### L 500.2500, L100.0100 ####[facility] [address] [place], [address] CO2 [Moles/Vol] 19.8 mmol/L Low 21.0-32.0 [facility] Comment on above: Performed By: #### L 500.2500, L100.0100 ####[facility] [address] [place], [address] Creatinine [Mass/Vol] 1.48 mg/dL High 0.70-1.20 [facility] Comment on above: Performed By: #### L 500.2500, L100.0100 ####[facility] [address] [place], [address] ECRCL 34.76 ml/min Low 50-250 [facility] Comment on above: Performed By: #### L 500.2500, L100.0100 ####[facility] [address] [place], [address] GAP 12 Normal 5-15 [facility] Comment on above: Performed By: #### L 500.2500, L100.0100 ####[facility] [address] [place], [address] GFR/1.73 sq M.predicted among non-blacks MDRD (S/P/Bld) [Vol rate/Area] 37 mL/min/{1.73_m2} Low >60 [facility] Comment on above: Result Comment: mL/m in/1.73m2 CKD-EPI Creatinine Equation (2020) Performed By: #### L 500.2500, L100.0100 ####[facility] [address] [place], [address] Glucose [Mass/Vol] 137 mg/dL High 70-99 [facility] Comment on above: Performed By: #### L 500.2500, L100.0100 ####[facility] [address] [place], [address] Potassium [Moles/Vol] 4.6 mmol/L Normal 3.3-5.1 [facility] Comment on above: Performed By: #### L 500.2500, L100.0100 ####[facility] [address] [place], [address] Sodium [Moles/Vol] 141 mmol/L Normal 133-145 [facility] Comment on above: Performed By: #### L 500.2500, L100.0100 ####[facility] [address] [place], [address] Urea nitrogen [Mass/Vol] 50 mg/dL High 4-19 [facility] Comment on above: Performed By: #### L 500.2500, L100.0100 ####[facility] [address] [place], [address] BUN Normal 4-19 [facility] Comment on above: Result Comment: Canc elled via OM: Order cancelled - Patient discharged Performed By: #### L 100.0100, L500.2500 ####[facility] [address] [place], [address] BUN/CRE Normal 10-20 [facility] Comment on above: Result Comment: Canc elled via OM: Order cancelled - Patient discharged Performed By: #### L 100.0100, L500.2500 ####[facility] [address] [place], [address] Calcium Normal 7.6-11.0 [facility] Comment on above: Result Comment: Canc elled via OM: Order cancelled - Patient discharged Performed By: #### L 100.0100, L500.2500 ####[facility] [address] [place], [address] CL Normal 98-108 [facility] Comment on above: Result Comment: Canc elled via OM: Order cancelled - Patient discharged Performed By: #### L 100.0100, L500.2500 ####[facility] [address] [place], [address] CO2 Normal 21.0-32.0 [facility] Comment on above: Result Comment: Canc elled via OM: Order cancelled - Patient discharged Performed By: #### L 100.0100, L500.2500 ####[facility] [address] [place], [address] CREAT,SERUM Normal 0.70-1.20 [facility] Comment on above: Result Comment: Canc elled via OM: Order cancelled - Patient discharged Performed By: #### L 100.0100, L500.2500 ####[facility] [address] [place], [address] eGFR Normal >60 [facility] Comment on above: Result Comment: Canc elled via OM: Order cancelled - Patient discharged Performed By: #### L 100.0100, L500.2500 ####[facility] [address], [address] GAP Normal 5-15 [facility] Comment on above: Result Comment: Canc elled via OM: Order cancelled - Patient discharged Performed By: #### L 100.0100, L500.2500 ####[facility] [address] [place], [address] GLU Normal 70-99 [facility] Comment on above: Result Comment: Canc elled via OM: Order cancelled - Patient discharged Performed By: #### L 100.0100, L500.2500 ####[facility] [address] [place], [address] Potassium Normal 3.3-5.1 [facility] Comment on above: Result Comment: Canc elled via OM: Order cancelled - Patient discharged Performed By: #### L 100.0100, L500.2500 ####[facility] [address] [place], [address] Basic Metabolic Profile (BMP) Normal 133-145 [facility] Comment on above: Result Comment: Canc elled via OM: Order cancelled - Patient discharged Performed By: #### L 100.0100, L500.2500 ####[facility] [address] [place], [address] Bedside Glucoseon 03-12-2025 FINGERSTICK GLU 220 mg/dL High 74-106 [facility] Comment on above: Result Comment: JEREMIAS GEMENT OF PATIENT CARE PER NURSING PROTOCOL Performed By: #### L 501.080 ####[facility] [address] [place], [address] FINGERSTICK GLU 276 mg/dL High 74-106 [facility] Comment on above: Result Comment: JEREMIAS GEMENT OF PATIENT CARE PER NURSING PROTOCOL Performed By: #### L 501.080 ####[facility] [address] [place], [address] FINGERSTICK GLU 315 mg/dL High 74-106 [facility] Comment on above: Result Comment: JEREMIAS GEMENT OF PATIENT CARE PER NURSING PROTOCOL Performed By: #### L 501.080 ####[facility] [address] [place], [address] FINGERSTICK GLU 129 mg/dL High 74-106 [facility] Comment on above: Result Comment: JEREMIAS GEMENT OF PATIENT CARE PER NURSING PROTOCOL Performed By: #### L 501.080 ####[facility] [address] [place], [address] CBC W/Diff, Automatedon 02-18 Absolute Lymph 1.65 X10 3/uL Normal 0.83-4.51 [facility] Comment on above: Performed By: #### L 500.2500, L100.0100 ####[facility] [address] [place], [address] Absolute Neut 6.7 X10 3/uL Normal 2.0-7.7 [facility] Comment on above: Performed By: #### L 500.2500, L100.0100 ####[facility] [address] [place], [address] Basophils/100 WBC (Bld) 0.7 % Normal 0-1 [facility] Comment on above: Performed By: #### L 500.2500, L100.0100 ####[facility] [address] [place], [address] Eosinophils/100 WBC (Bld) 2.9 % Normal 0-5 [facility] Comment on above: Performed By: #### L 500.2500, L100.0100 ####[facility] [address] [place], [address] Erythrocyte distribution width (RBC) [Ratio] 15.8 % High 11.6-14.6 [facility] Comment on above: Performed By: #### L 500.2500, L100.0100 ####[facility] [address] [place], [address] Hematocrit (Bld) [Volume fraction] 29.0 % Low 37-47 [facility] Comment on above: Performed By: #### L 500.2500, L100.0100 ####[facility] [address] [place], [address] Hemoglobin (Bld) [Mass/Vol] 9.0 g/dL Low 12.0-15.0 [facility] Comment on above: Performed By: #### L 500.2500, L100.0100 ####[facility] [address] [place], [address] IG% 1.000 High 0.0-0.9 [facility] Comment on above: Result Comment: IG% - Immature Granulocytes (promyelocytes, myelocytes andmetamyelocytes) > 1% indicates that a LEFT SHIFT is Present. Performed By: #### L 500.2500, L100.0100 ####[facility] [address] [place], [address] Lymphocytes/100 WBC (Bld) 16.9 % Low 19-41 [facility] Comment on above: Performed By: #### L 500.2500, L100.0100 ####[facility] [address] [place], [address] MCH (RBC) [Entitic mass] 28.7 pg Normal 27.0-32.0 [facility] Comment on above: Performed By: #### L 500.2500, L100.0100 ####[facility] [address] [place], [address] MCHC (RBC) [Mass/Vol] 31.0 g/dL Low 32-36 [facility] Comment on above: Performed By: #### L 500.2500, L100.0100 ####[facility] [address] [place], [address] MCV (RBC) [Entitic vol] 92.4 fL Normal 81-99 [facility] Comment on above: Performed By: #### L 500.2500, L100.0100 ####[facility] [address] [place], [address] Monocytes/100 WBC (Bld) 10.2 % High 0-10 [facility] Comment on above: Performed By: #### L 500.2500, L100.0100 ####[facility] [address] [place], [address] Neutrophils/100 WBC (Bld) 68.3 % Normal 47-70 [facility] Comment on above: Performed By: #### L 500.2500, L100.0100 ####[facility] [address] [place], [address] Nucleated RBC (Bld) [#/Vol] 0 10*3/uL Normal 0-5 [facility] Comment on above: Performed By: #### L 500.2500, L100.0100 ####[facility] [address] [place], [address] Platelet mean volume (Bld) [Entitic vol] 11.8 fL Normal 6.2-12.0 [facility] Comment on above: Performed By: #### L 500.2500, L100.0100 ####[facility] [address] [place], [address] Platelets (Bld) [#/Vol] 175 10*3/uL Normal 150-450 [facility] Comment on above: Performed By: #### L 500.2500, L100.0100 ####[facility] [address] [place], [address] RBC (Bld) [#/Vol] 3.14 10*6/uL Low 4.2-5.4 [facility] Comment on above: Performed By: #### L 500.2500, L100.0100 ####[facility] [address] [place], [address] RDW SD 51.3 fl High 35.1-43.9 [facility] Comment on above: Performed By: #### L 500.2500, L100.0100 ####[facility] [address] [place], [address] WBC (Bld) [#/Vol] 9.8 10*3/uL Normal 4.4-11.0 [facility] Comment on above: Performed By: #### L 500.2500, L100.0100 ####[facility] [address] [place], [address] Absolute Neut Normal 2.0-7.7 [facility] Comment on above: Result Comment: Canc elled via OM: Order cancelled - Patient discharged Performed By: #### L 100.0100, L500.2500 ####[facility] [address] [place], [address] HCT Normal 37-47 [facility] Comment on above: Result Comment: Canc elled via OM: Order cancelled - Patient discharged Performed By: #### L 100.0100, L500.2500 ####[facility] [address] [place], [address] HGB Normal 12.0-15.0 [facility] Comment on above: Result Comment: Canc elled via OM: Order cancelled - Patient discharged Performed By: #### L 100.0100, L500.2500 ####[facility] [address] [place], [address] MCH Normal 27.0-32.0 [facility] Comment on above: Result Comment: Canc elled via OM: Order cancelled - Patient discharged Performed By: #### L 100.0100, L500.2500 ####[facility] [address] [place], [address] MCHC Normal 32-36 [facility] Comment on above: Result Comment: Canc elled via OM: Order cancelled - Patient discharged Performed By: #### L 100.0100, L500.2500 ####[facility] [address] [place], [address] MCV Normal 81-99 [facility] Comment on above: Result Comment: Canc elled via OM: Order cancelled - Patient discharged Performed By: #### L 100.0100, L500.2500 ####[facility] [address] [place], [address] NEUT% Normal 47-70 [facility] Comment on above: Result Comment: Canc elled via OM: Order cancelled - Patient discharged Performed By: #### L 100.0100, L500.2500 ####[facility] [address] [place], [address] PLT Normal 150-450 [facility] Comment on above: Result Comment: Canc elled via OM: Order cancelled - Patient discharged Performed By: #### L 100.0100, L500.2500 ####[facility] [address] [place], [address] RBC Normal 4.2-5.4 [facility] Comment on above: Result Comment: Canc elled via OM: Order cancelled - Patient discharged Performed By: #### L 100.0100, L500.2500 ####[facility] [address] [place], [address] RDW CV Normal 11.6-14.6 [facility] Comment on above: Result Comment: Canc elled via OM: Order cancelled - Patient discharged Performed By: #### L 100.0100, L500.2500 ####[facility] [address] [place], [address] RDW SD Normal 35.1-43.9 [facility] Comment on above: Result Comment: Canc elled via OM: Order cancelled - Patient discharged Performed By: #### L 100.0100, L500.2500 ####[facility] [address] [place], [address] WBC Normal 4.4-11.0 [facility] Comment on above: Result Comment: Canc elled via OM: Order cancelled - Patient discharged Performed By: #### L 100.0100, L500.2500 ####[facility] [address] [place], [address] Absolute lymphocyte countOrd ered By: Broderick Dempsey on 03-11-2025 Lymphocytes Auto (Unsp spec) [#/Vol] 1.37 10*3/uL 0.83-4.51 [facility] Absolute neutrophil countOrd ered By: Broderick Dempsey on 03-11-2025 Neutrophils (Bld) [#/Vol] 5.4 10*3/uL 2.0-7.7 [facility] Anion gap in Serum or Plasma Ordered By: Broderick Dempsey on 03-11-2025 Anion gap [Moles/Vol] 10 mmol/L 5-15 [facility] Automated lymphocyte count a s percentage of total leukocytesOrdered By: Broderick Dempsey on 03-11-2025 Lymphocytes/100 WBC Auto (Unsp spec) 17.0 % Low 19-41 [facility] BUN/creatinine ratioOrdered By: Broderick Dempsey on 03-11-2025 Urea nitrogen/Creatinine [Mass ratio] 37.8 mg/mg High 10-20 [facility] Basic Metabolic Profile (BMP )on 03-11-2025 BUN/CRE 37.8 RATIO High - [facility] Comment on above: Performed By: #### L 500.2500, L100.0100 ####[facility] [address] [place], [address] Calcium [Mass/Vol] 8.4 mg/dL Normal 7.6-11.0 [facility] Comment on above: Performed By: #### L 500.2500, L100.0100 ####[facility] [address] [place], [address] Chloride [Moles/Vol] 111 mmol/L High 98-108 [facility] Comment on above: Performed By: #### L 500.2500, L100.0100 ####[facility] [address] [place], [address] CO2 [Moles/Vol] 19.8 mmol/L Low 21.0-32.0 [facility] Comment on above: Performed By: #### L 500.2500, L100.0100 ####[facility] [address] [place], [address] Creatinine [Mass/Vol] 1.41 mg/dL High 0.70-1.20 [facility] Comment on above: Performed By: #### L 500.2500, L100.0100 ####[facility] [address] [place], [address] ECRCL 36.83 ml/min Low 50-250 [facility] Comment on above: Performed By: #### L 500.2500, L100.0100 ####[facility] [address] [place], [address] GAP 10 Normal 5-15 [facility] Comment on above: Performed By: #### L 500.2500, L100.0100 ####[facility] [address] [place], [address] GFR/1.73 sq M.predicted among non-blacks MDRD (S/P/Bld) [Vol rate/Area] 39 mL/min/{1.73_m2} Low >60 [facility] Comment on above: Result Comment: mL/m in/1.73m2 CKD-EPI Creatinine Equation (2020) Performed By: #### L 500.2500, L100.0100 ####[facility] [address] [place], [address] Glucose [Mass/Vol] 91 mg/dL Normal 70-99 [facility] Comment on above: Performed By: #### L 500.2500, L100.0100 ####[facility] [address] [place], [address] Potassium [Moles/Vol] 4.2 mmol/L Normal 3.3-5.1 [facility] Comment on above: Performed By: #### L 500.2500, L100.0100 ####[facility] [address] [place], [address] Sodium [Moles/Vol] 141 mmol/L Normal 133-145 [facility] Comment on above: Performed By: #### L 500.2500, L100.0100 ####[facility] [address] [place], [address] Urea nitrogen [Mass/Vol] 53 mg/dL High 4-19 [facility] Comment on above: Performed By: #### L 500.2500, L100.0100 ####[facility] [address] [place], [address] Basophil percentageOrdered B y: Broderick Ke on 03-11-2025 Basophils/100 WBC (Bld) 0.7 % 0-1 [facility] Bedside Glucoseon 03-11-2025 FINGERSTICK GLU 204 mg/dL High 74-106 [facility] Comment on above: Result Comment: JEREMIAS GEMENT OF PATIENT CARE PER NURSING PROTOCOL Performed By: #### L 501.080 ####[facility] [address] [place], [address] FINGERSTICK GLU 164 mg/dL High 74-106 [facility] Comment on above: Result Comment: JEREMIAS GEMENT OF PATIENT CARE PER NURSING PROTOCOL Performed By: #### L 501.080 ####[facility] [address] [place], [address] FINGERSTICK GLU 282 mg/dL High 74-106 [facility] Comment on above: Result Comment: JEREMIAS GEMENT OF PATIENT CARE PER NURSING PROTOCOL Performed By: #### L 501.080 ####[facility] [address] [place], [address] FINGERSTICK GLU 82 mg/dL Normal 74-106 [facility] Comment on above: Result Comment: JEREMIAS GEMENT OF PATIENT CARE PER NURSING PROTOCOL Performed By: #### L 501.080 ####[facility] [address] [place], [address] FINGERSTICK GLU 142 mg/dL High 74-106 [facility] Comment on above: Result Comment: JEREMIAS GEMENT OF PATIENT CARE PER NURSING PROTOCOL Performed By: #### L 501.080 ####[facility] [address] [place], [address] CBC W/Diff, Automatedon 04-2 -2024 Absolute Lymph 1.37 X10 3/uL Normal 0.83-4.51 [facility] Comment on above: Performed By: #### L 500.2500, L100.0100 ####[facility] [address] [place], [address] Absolute Neut 5.4 X10 3/uL Normal 2.0-7.7 [facility] Comment on above: Performed By: #### L 500.2500, L100.0100 ####[facility] [address] [place], [address] Basophils/100 WBC (Bld) 0.7 % Normal 0-1 [facility] Comment on above: Performed By: #### L 500.2500, L100.0100 ####[facility] [address] [place], [address] Eosinophils/100 WBC (Bld) 3.6 % Normal 0-5 [facility] Comment on above: Performed By: #### L 500.2500, L100.0100 ####[facility] [address] [place], [address] Erythrocyte distribution width (RBC) [Ratio] 15.4 % High 11.6-14.6 [facility] Comment on above: Performed By: #### L 500.2500, L100.0100 ####[facility] [address] [place], [address] Hematocrit (Bld) [Volume fraction] 25.3 % Low 37-47 [facility] Comment on above: Performed By: #### L 500.2500, L100.0100 ####[facility] [address] [place], [address] Hemoglobin (Bld) [Mass/Vol] 8.0 g/dL Low 12.0-15.0 [facility] Comment on above: Performed By: #### L 500.2500, L100.0100 ####[facility] [address] [place], [address] IG% 0.900 Normal 0.0-0.9 [facility] Comment on above: Result Comment: IG% - Immature Granulocytes (promyelocytes, myelocytes andmetamyelocytes) > 1% indicates that a LEFT SHIFT is Present. Performed By: #### L 500.2500, L100.0100 ####[facility] [address] [place], [address] Lymphocytes/100 WBC (Bld) 17.0 % Low 19-41 [facility] Comment on above: Performed By: #### L 500.2500, L100.0100 ####[facility] [address] [place], [address] MCH (RBC) [Entitic mass] 28.8 pg Normal 27.0-32.0 [facility] Comment on above: Performed By: #### L 500.2500, L100.0100 ####[facility] [address] [place], [address] MCHC (RBC) [Mass/Vol] 31.6 g/dL Low 32-36 [facility] Comment on above: Performed By: #### L 500.2500, L100.0100 ####[facility] [address] [place], [address] MCV (RBC) [Entitic vol] 91.0 fL Normal 81-99 [facility] Comment on above: Performed By: #### L 500.2500, L100.0100 ####[facility] [address] [place], [address] Monocytes/100 WBC (Bld) 10.8 % High 0-10 [facility] Comment on above: Performed By: #### L 500.2500, L100.0100 ####[facility] [address] [place], [address] Neutrophils/100 WBC (Bld) 67.0 % Normal 47-70 [facility] Comment on above: Performed By: #### L 500.2500, L100.0100 ####[facility] [address] [place], [address] Nucleated RBC (Bld) [#/Vol] 0 10*3/uL Normal 0-5 [facility] Comment on above: Performed By: #### L 500.2500, L100.0100 ####[facility] [address] [place], [address] Platelet mean volume (Bld) [Entitic vol] 11.7 fL Normal 6.2-12.0 [facility] Comment on above: Performed By: #### L 500.2500, L100.0100 ####[facility] [address] [place], [address] Platelets (Bld) [#/Vol] 150 10*3/uL Normal 150-450 [facility] Comment on above: Performed By: #### L 500.2500, L100.0100 ####[facility] [address] [place], [address] RBC (Bld) [#/Vol] 2.78 10*6/uL Low 4.2-5.4 [facility] Comment on above: Performed By: #### L 500.2500, L100.0100 ####[facility] [address] [place], [address] RDW SD 49.5 fl High 35.1-43.9 [facility] Comment on above: Performed By: #### L 500.2500, L100.0100 ####[facility] [address] [place], [address] WBC (Bld) [#/Vol] 8.1 10*3/uL Normal 4.4-11.0 [facility] Comment on above: Performed By: #### L 500.2500, L100.0100 ####[facility] [address] [place], [address] Carbon dioxide, total [Moles /volume] in Central venous bloodOrdered By: Broderick Dempsey on 03-11-2025 CO2 [Moles/Vol] 19.8 mmol/L Low 21.0-32.0 [facility] Chloride assayOrdered By: Solange Dempsey on 03-11-2025 Chloride [Moles/Vol] 111 mmol/L High 98-108 [facility] Consultation - Infectious Dx on 03-11-2025 Consultation - Infectious Dx Normal [facility] Eosinophil percentageOrdered By: Broderick Dempsey on 03-11-2025 Eosinophils/100 WBC (Bld) 3.6 % 0-5 [facility] Erythrocyte distribution wid th ratioOrdered By: Broderick Dempsey on 03-11-2025 Erythrocyte distribution width (RBC) [Ratio] 15.4 % High 11.6-14.6 [facility] Erythrocyte distribution wid th standard deviationOrdered By: Broderick Dempsey on 03-11-2025 Erythrocyte distribution width (RBC) [Ratio] 49.5 fl High 35.1-43.9 [facility] Glomerular filtration rate ( GFR) estimation/1.73 sq m using serum, plasma, or whole bOrdered By: Broderick Dempsey on 03-11-2025 GFR/1.73 sq M.predicted among non-blacks MDRD (S/P/Bld) [Vol rate/Area] 39 mL/min/{1.73_m2} Low >60 [facility] Comment on above: mL/min/1.73m2 CKD-EP I Creatinine Equation (2020) [facility] deOrdered By: Broderick Dempsey on 03-11-2025 Glucose [Mass/Vol] 164 mg/dL High 74-106 [facility] Comment on above: MANAGEMENT OF PATIEN T CARE PER NURSING PROTOCOL Hematocrit Auto (Bld) [Volum e fraction]Ordered By: Broderick Dempsey on 03-11-2025 Hematocrit (Bld) [Volume fraction] 25.3 % Low 37-47 [facility] Hemoglobin measurementOrdere d By: Broderick Dempsey on 03-11-2025 Hemoglobin (Bld) [Mass/Vol] 8.0 g/dL Low 12.0-15.0 [facility] Immature granulocytes/100 WB C Auto (Bld)Ordered By: Broderick Dempsey on 03-11-2025 Immature granulocytes/100 WBC (Bld) 0.900 % 0.0-0.9 [facility] Comment on above: IG% - Immature Granu locytes (promyelocytes, myelocytes and metamyelocytes) > 1% indicates that a LEFT SHIFT is Present. MCV (mean corpuscular volume ) determinationOrdered By: Broderick Dempsey on 03-11-2025 MCV (RBC) [Entitic vol] 91.0 fL 81-99 [facility] Mean corpuscular hemoglobin (MCH) determinationOrdered By: Broderick Dempsey on 03-11-2025 MCH (RBC) [Entitic mass] 28.8 pg 27.0-32.0 [facility] Mean corpuscular hemoglobin concentration (MCHC) determinationOrdered By: Broderick Dempsey on 03-11-2025 MCHC (RBC) [Mass/Vol] 31.6 g/dL Low 32-36 [facility] Mean platelet volume determi nationOrdered By: Broderick Dempsey on 03-11-2025 Platelet mean volume (Bld) [Entitic vol] 11.7 fL 6.2-12.0 [facility] Monocyte percentageOrdered B y: Broderick Dempsey on 03-11-2025 Monocytes/100 WBC (Bld) 10.8 % High 0-10 [facility] Neutrophil percentageOrdered By: Broderick Dempsey on 03-11-2025 Neutrophils/100 WBC (Bld) 67.0 % 47-70 [facility] Nucleated red blood cell per centageOrdered By: Broderick Dempsey on 03-11-2025 Nucleated RBC/100 WBC (Bld) [Ratio] 0 % 0-5 [facility] Platelet countOrdered By: Solange Dempsey on 03-11-2025 Platelets (Bld) [#/Vol] 150 10*3/uL 150-450 [facility] Potassium measurement (mass/ volume)Ordered By: Broderick Dempsey on 03-11-2025 Potassium (Unsp spec) [Mass/Vol] 4.2 mmol/L 3.3-5.1 [facility] RBC Auto (Bld) [#/Vol]Ordere d By: Broderick Dempsey on 03-11-2025 RBC (Bld) [#/Vol] 2.78 10*6/uL Low 4.2-5.4 [facility] Serum creatinine measurement (mass/volume)Ordered By: Broderick Dempsey on 03-11-2025 Creatinine [Mass/Vol] 1.41 mg/dL High 0.70-1.20 [facility] Serum glucose measurement (m ass/volume)Ordered By: Broderick Dempsey on 03-11-2025 Glucose [Mass/Vol] 91 mg/dL 70-99 [facility] Serum or plasma calcium natalia urement (mass/volume)Ordered By: Broderick Dempsey on 03-11-2025 Calcium [Mass/Vol] 8.4 mg/dL 7.6-11.0 [facility] Serum or plasma urea nitroge n measurement (mass/volume)Ordered By: Broderick Dempsey on 03-11-2025 Urea nitrogen [Mass/Vol] 53 mg/dL High 4-19 [facility] Sodium levelOrdered By: Tevin Dempsey on 03-11-2025 Sodium [Moles/Vol] 141 mmol/L 133-145 [facility] White blood cell (WBC) count Ordered By: Broderick Dempsey on 03-11-2025 WBC (Bld) [#/Vol] 8.1 10*3/uL 4.4-11.0 [facility] Basic Metabolic Profile (BMP )on 03-10-2025 BUN/CRE 44.3 RATIO High 10-20 [facility] Comment on above: Performed By: #### L 100.0100, L500.2500 ####[facility] [address] [place], [address] Calcium [Mass/Vol] 8.4 mg/dL Normal 7.6-11.0 [facility] Comment on above: Performed By: #### L 100.0100, L500.2500 ####[facility] [address] [place], [address] Chloride [Moles/Vol] 113 mmol/L High 98-108 [facility] Comment on above: Performed By: #### L 100.0100, L500.2500 ####[facility] [address] [place], [address] CO2 [Moles/Vol] 19.1 mmol/L Low 21.0-32.0 [facility] Comment on above: Performed By: #### L 100.0100, L500.2500 ####[facility] [address] [place], [address] Creatinine [Mass/Vol] 1.47 mg/dL High 0.70-1.20 [facility] Comment on above: Performed By: #### L 100.0100, L500.2500 ####[facility] [address] [place], [address] ECRCL 35.18 ml/min Low 50-250 [facility] Comment on above: Performed By: #### L 100.0100, L500.2500 ####[facility] [address] [place], [address] GAP 10 Normal 5-15 [facility] Comment on above: Performed By: #### L 100.0100, L500.2500 ####[facility] [address] [place], [address] GFR/1.73 sq M.predicted among non-blacks MDRD (S/P/Bld) [Vol rate/Area] 37 mL/min/{1.73_m2} Low >60 [facility] Comment on above: Result Comment: mL/m in/1.73m2 CKD-EPI Creatinine Equation (2020) Performed By: #### L 100.0100, L500.2500 ####[facility] [address] [place], [address] Glucose [Mass/Vol] 81 mg/dL Normal 70-99 [facility] Comment on above: Performed By: #### L 100.0100, L500.2500 ####[facility] [address] [place], [address] Potassium [Moles/Vol] 4.2 mmol/L Normal 3.3-5.1 [facility] Comment on above: Performed By: #### L 100.0100, L500.2500 ####[facility] [address] [place], [address] Sodium [Moles/Vol] 143 mmol/L Normal 133-145 [facility] Comment on above: Performed By: #### L 100.0100, L500.2500 ####[facility] [address] [place], [address] Urea nitrogen [Mass/Vol] 65 mg/dL High 4-19 [facility] Comment on above: Performed By: #### L 100.0100, L500.2500 ####[facility] [address] [place], [address] Bedside Glucoseon 03-10-2025 FINGERSTICK GLU 186 mg/dL High 74-106 [facility] Comment on above: Result Comment: JEREMIAS GEMENT OF PATIENT CARE PER NURSING PROTOCOL Performed By: #### L 501.080 ####[facility] [address] [place], [address] FINGERSTICK GLU 308 mg/dL High 74-106 [facility] Comment on above: Result Comment: JEREMIAS GEMENT OF PATIENT CARE PER NURSING PROTOCOL Performed By: #### L 501.080 ####[facility] [address] [place], [address] FINGERSTICK GLU 84 mg/dL Normal 74-106 [facility] Comment on above: Result Comment: JEREMIAS GEMENT OF PATIENT CARE PER NURSING PROTOCOL Performed By: #### L 501.080 ####[facility] [address] [place], [address] CBC W/Diff, Automatedon 02-18 Absolute Lymph 1.76 X10 3/uL Normal 0.83-4.51 [facility] Comment on above: Performed By: #### L 100.0100, L500.2500 ####[facility] [address] [place], [address] Absolute Neut 4.7 X10 3/uL Normal 2.0-7.7 [facility] Comment on above: Performed By: #### L 100.0100, L500.2500 ####[facility] [address] [place], [address] Basophils/100 WBC (Bld) 0.6 % Normal 0-1 [facility] Comment on above: Performed By: #### L 100.0100, L500.2500 ####[facility] [address] [place], [address] Eosinophils/100 WBC (Bld) 3.0 % Normal 0-5 [facility] Comment on above: Performed By: #### L 100.0100, L500.2500 ####[facility] [address] [place], [address] Erythrocyte distribution width (RBC) [Ratio] 15.1 % High 11.6-14.6 [facility] Comment on above: Performed By: #### L 100.0100, L500.2500 ####[facility] [address] [place], [address] Hematocrit (Bld) [Volume fraction] 25.3 % Low 37-47 [facility] Comment on above: Performed By: #### L 100.0100, L500.2500 ####[facility] [address] [place], [address] Hemoglobin (Bld) [Mass/Vol] 8.1 g/dL Low 12.0-15.0 [facility] Comment on above: Performed By: #### L 100.0100, L500.2500 ####[facility] [address] [place], [address] IG% 1.300 High 0.0-0.9 [facility] Comment on above: Result Comment: IG% - Immature Granulocytes (promyelocytes, myelocytes andmetamyelocytes) > 1% indicates that a LEFT SHIFT is Present. Performed By: #### L 100.0100, L500.2500 ####[facility] [address] [place], [address] Lymphocytes/100 WBC (Bld) 22.3 % Normal 19-41 [facility] Comment on above: Performed By: #### L 100.0100, L500.2500 ####[facility] [address] [place], [address] MCH (RBC) [Entitic mass] 28.7 pg Normal 27.0-32.0 [facility] Comment on above: Performed By: #### L 100.0100, L500.2500 ####[facility] [address] [place], [address] MCHC (RBC) [Mass/Vol] 32.0 g/dL Normal 32-36 [facility] Comment on above: Performed By: #### L 100.0100, L500.2500 ####[facility] [address] [place], [address] MCV (RBC) [Entitic vol] 89.7 fL Normal 81-99 [facility] Comment on above: Performed By: #### L 100.0100, L500.2500 ####[facility] [address] [place], [address] Monocytes/100 WBC (Bld) 12.9 % High 0-10 [facility] Comment on above: Performed By: #### L 100.0100, L500.2500 ####[facility] [address] [place], [address] Neutrophils/100 WBC (Bld) 59.9 % Normal 47-70 [facility] Comment on above: Performed By: #### L 100.0100, L500.2500 ####[facility] [address] [place], [address] Nucleated RBC (Bld) [#/Vol] 0 10*3/uL Normal 0-5 [facility] Comment on above: Performed By: #### L 100.0100, L500.2500 ####[facility] [address] [place], [address] Platelet mean volume (Bld) [Entitic vol] 11.4 fL Normal 6.2-12.0 [facility] Comment on above: Performed By: #### L 100.0100, L500.2500 ####[facility] [address] [place], [address] Platelets (Bld) [#/Vol] 156 10*3/uL Normal 150-450 [facility] Comment on above: Performed By: #### L 100.0100, L500.2500 ####[facility] [address] [place], [address] RBC (Bld) [#/Vol] 2.82 10*6/uL Low 4.2-5.4 [facility] Comment on above: Performed By: #### L 100.0100, L500.2500 ####[facility] [address] [place], [address] RDW SD 46.9 fl High 35.1-43.9 [facility] Comment on above: Performed By: #### L 100.0100, L500.2500 ####[facility] [address] [place], [address] WBC (Bld) [#/Vol] 7.9 10*3/uL Normal 4.4-11.0 [facility] Comment on above: Performed By: #### L 100.0100, L500.2500 ####[facility] [address] [place], [address] Protein+Creatinine Ratio,Uri neon 03-10-2025 PROT:CRE RATIO 226 mg/g CRE High 0-200 [facility] Comment on above: Performed By: #### L 501.0900 ####[facility] [address] [place], [address] Protein (U) [Mass/Vol] 8.5 mg/dL Normal 0.0-12.0 [facility] Comment on above: Performed By: #### L 501.0900 ####[facility] [address] [place], [address] UR CREAT 37.70 mg/dL Normal 28.00-217.0 0 [facility] Comment on above: Performed By: #### L 501.0900 ####[facility] [address] [place], [address] Basic Metabolic Profile (BMP )on 03-09-2025 BUN/CRE 51.7 RATIO High 10-20 [facility] Comment on above: Performed By: #### L 501.3620, L500.2500, L100.0100 ####[facility] [address] [place], [address] Calcium [Mass/Vol] 8.1 mg/dL Normal 7.6-11.0 [facility] Comment on above: Performed By: #### L 501.3620, L500.2500, L100.0100 ####[facility] [address] [place], [address] Chloride [Moles/Vol] 112 mmol/L High 98-108 [facility] Comment on above: Performed By: #### L 501.3620, L500.2500, L100.0100 ####[facility] [address] [place], [address] CO2 [Moles/Vol] 19.1 mmol/L Low 21.0-32.0 [facility] Comment on above: Performed By: #### L 501.3620, L500.2500, L100.0100 ####[facility] [address] [place], [address] Creatinine [Mass/Vol] 1.63 mg/dL High 0.70-1.20 [facility] Comment on above: Performed By: #### L 501.3620, L500.2500, L100.0100 ####[facility] [address] [place], [address] ECRCL 31.75 ml/min Low 50-250 [facility] Comment on above: Performed By: #### L 501.3620, L500.2500, L100.0100 ####[facility] [address] [place], [address] GAP 10 Normal 5-15 [facility] Comment on above: Performed By: #### L 501.3620, L500.2500, L100.0100 ####[facility] [address] [place], [address] GFR/1.73 sq M.predicted among non-blacks MDRD (S/P/Bld) [Vol rate/Area] 33 mL/min/{1.73_m2} Low >60 [facility] Comment on above: Result Comment: mL/m in/1.73m2 CKD-EPI Creatinine Equation (2020) Performed By: #### L 501.3620, L500.2500, L100.0100 ####[facility] [address] [place], [address] Glucose [Mass/Vol] 120 mg/dL High 70-99 [facility] Comment on above: Performed By: #### L 501.3620, L500.2500, L100.0100 ####[facility] [address] [place], [address] Potassium [Moles/Vol] 3.8 mmol/L Normal 3.3-5.1 [facility] Comment on above: Performed By: #### L 501.3620, L500.2500, L100.0100 ####[facility] [address] [place], [address] Sodium [Moles/Vol] 141 mmol/L Normal 133-145 [facility] Comment on above: Performed By: #### L 501.3620, L500.2500, L100.0100 ####[facility] [address] [place], [address] Urea nitrogen [Mass/Vol] 84 mg/dL High 4-19 [facility] Comment on above: Performed By: #### L 501.3620, L500.2500, L100.0100 ####[facility] [address] [place], [address] Bedside Glucoseon 03-09-2025 FINGERSTICK GLU 220 mg/dL High 74-106 [facility] Comment on above: Result Comment: JEREMIAS GEMENT OF PATIENT CARE PER NURSING PROTOCOL Performed By: #### L 501.080 ####[facility] [address] [place], [address] FINGERSTICK GLU 193 mg/dL High 74-106 [facility] Comment on above: Result Comment: JEREMIAS GEMENT OF PATIENT CARE PER NURSING PROTOCOL Performed By: #### L 501.080 ####[facility] [address] [place], [address] FINGERSTICK GLU 164 mg/dL High 74-106 [facility] Comment on above: Result Comment: JEREMIAS GEMENT OF PATIENT CARE PER NURSING PROTOCOL Performed By: #### L 501.080 ####[facility] [address] [place], [address] CBC W/Diff, Automatedon 04- Absolute Lymph 1.38 X10 3/uL Normal 0.83-4.51 [facility] Comment on above: Performed By: #### L 501.3620, L500.2500, L100.0100 ####[facility] [address] [place], [address] Absolute Neut 6.3 X10 3/uL Normal 2.0-7.7 [facility] Comment on above: Performed By: #### L 501.3620, L500.2500, L100.0100 ####[facility] [address] [place], [address] Basophils/100 WBC (Bld) 0.3 % Normal 0-1 [facility] Comment on above: Performed By: #### L 501.3620, L500.2500, L100.0100 ####[facility] [address] [place], [address] Eosinophils/100 WBC (Bld) 2.3 % Normal 0-5 [facility] Comment on above: Performed By: #### L 501.3620, L500.2500, L100.0100 ####[facility] [address] [place], [address] Erythrocyte distribution width (RBC) [Ratio] 14.7 % High 11.6-14.6 [facility] Comment on above: Performed By: #### L 501.3620, L500.2500, L100.0100 ####[facility] [address] [place], [address] Hematocrit (Bld) [Volume fraction] 23.5 % Low 37-47 [facility] Comment on above: Performed By: #### L 501.3620, L500.2500, L100.0100 ####[facility] [address] [place], [address] Hemoglobin (Bld) [Mass/Vol] 7.6 g/dL Low 12.0-15.0 [facility] Comment on above: Performed By: #### L 501.3620, L500.2500, L100.0100 ####[facility] [address] [place], [address] IG% 1.000 High 0.0-0.9 [facility] Comment on above: Result Comment: IG% - Immature Granulocytes (promyelocytes, myelocytes andmetamyelocytes) > 1% indicates that a LEFT SHIFT is Present. Performed By: #### L 501.3620, L500.2500, L100.0100 ####[facility] [address] [place], [address] Lymphocytes/100 WBC (Bld) 15.8 % Low 19-41 [facility] Comment on above: Performed By: #### L 501.3620, L500.2500, L100.0100 ####[facility] [address] [place], [address] MCH (RBC) [Entitic mass] 29.0 pg Normal 27.0-32.0 [facility] Comment on above: Performed By: #### L 501.3620, L500.2500, L100.0100 ####[facility] [address] [place], [address] MCHC (RBC) [Mass/Vol] 32.3 g/dL Normal 32-36 [facility] Comment on above: Performed By: #### L 501.3620, L500.2500, L100.0100 ####[facility] [address] [place], [address] MCV (RBC) [Entitic vol] 89.7 fL Normal 81-99 [facility] Comment on above: Performed By: #### L 501.3620, L500.2500, L100.0100 ####[facility] [address] [place], [address] Monocytes/100 WBC (Bld) 9.0 % Normal 0-10 [facility] Comment on above: Performed By: #### L 501.3620, L500.2500, L100.0100 ####[facility] [address] [place], [address] Neutrophils/100 WBC (Bld) 71.6 % High 47-70 [facility] Comment on above: Performed By: #### L 501.3620, L500.2500, L100.0100 ####[facility] [address] [place], [address] Nucleated RBC (Bld) [#/Vol] 0 10*3/uL Normal 0-5 [facility] Comment on above: Performed By: #### L 501.3620, L500.2500, L100.0100 ####[facility] [address] [place], [address] Platelet mean volume (Bld) [Entitic vol] 11.7 fL Normal 6.2-12.0 [facility] Comment on above: Performed By: #### L 501.3620, L500.2500, L100.0100 ####[facility] [address] [place], [address] Platelets (Bld) [#/Vol] 164 10*3/uL Normal 150-450 [facility] Comment on above: Performed By: #### L 501.3620, L500.2500, L100.0100 ####[facility] [address] [place], [address] RBC (Bld) [#/Vol] 2.62 10*6/uL Low 4.2-5.4 [facility] Comment on above: Performed By: #### L 501.3620, L500.2500, L100.0100 ####[facility] [address] [place], [address] RDW SD 47.1 fl High 35.1-43.9 [facility] Comment on above: Performed By: #### L 501.3620, L500.2500, L100.0100 ####[facility] [address] [place], [address] WBC (Bld) [#/Vol] 8.8 10*3/uL Normal 4.4-11.0 [facility] Comment on above: Performed By: #### L 501.3620, L500.2500, L100.0100 ####[facility] [address] [place], [address] CPK Total, Creatine Kinaseon 03-09-2025 CPK TOTAL 308 U/L High 24-195 [facility] Comment on above: Performed By: #### L 501.3620, L500.2500, L100.0100 ####[facility] [address] [place], [place], [address] Consultation - Nephrologyon 03-09-2025 Consultation - Nephrology Normal [facility] Consultation - Surgicalon Consultation - Surgical Normal [facility] Folate [Mass/volume] in Seru m or PlasmaOrdered By: Maddie Merchant on 03-09-2025 Folate [Mass/Vol] 15.10 ng/mL 4.60-34.80 [facility] Folates,Serum (Folic Acid)on 03-09-2025 FOLATES,SERUM 15.10 ng/mL Normal 4.60-34.80 [facility] Comment on above: Performed By: #### L 506.0200 ####[facility] [address] [place], [place], [address] Kidney and Bladderon 025 Kidney and Bladder Normal [facility] Random urine creatinine natalia urement (mass/volume)Ordered By: Zarina Adler on 03-09-2025 Creatinine Unsp time (U) [Mass/Vol] 37.70 mg/dL 28.00-217.0 0 [facility] Serum or plasma creatine kin ase activityOrdered By: Broderick Dempsey on 03-09-2025 CK [Catalytic activity/Vol] 308 U/L High 24-195 [facility] Urine Cultureon 03-09-2025 URC Normal [facility] Comment on above: Performed By: #### M 100.2200 ####[facility] [address] [place], [place], [address] Urine protein measurement (m ass/volume)Ordered By: Zarina Adler on 03-09-2025 Protein (U) [Mass/Vol] 8.5 mg/dL 0.0-12.0 [facility] Urine protein/creatinine mas s ratioOrdered By: Zarina Adler on 03-09-2025 Protein/Creatinine (U) [Mass ratio] 226 mg/g CRE High 0-200 [facility] Bedside Glucoseon 03-08-2025 FINGERSTICK GLU 249 mg/dL High 74-106 [facility] Comment on above: Result Comment: JEREMIAS GEMENT OF PATIENT CARE PER NURSING PROTOCOL Performed By: #### L 501.080 ####[facility] [address] [place], [address] FINGERSTICK GLU 200 mg/dL High 74-106 [facility] Comment on above: Result Comment: JEREMIAS GEMENT OF PATIENT CARE PER NURSING PROTOCOL Performed By: #### L 501.080 ####[facility] [address] [place], [address] FINGERSTICK GLU 165 mg/dL High -106 [facility] Comment on above: Result Comment: JEREMIAS GEMENT OF PATIENT CARE PER NURSING PROTOCOL Performed By: #### L 501.080 ####[facility] [address] [place], [address] FINGERSTICK GLU 159 mg/dL High [facility]106 [facility] Comment on above: Result Comment: JEREMIAS GEMENT OF PATIENT CARE PER NURSING PROTOCOL Performed By: #### L 501.080 ####[facility] [address] [place], [address] FINGERSTICK GLU 283 mg/dL High [facility]106 [facility] Comment on above: Result Comment: JEREMIAS GEMENT OF PATIENT CARE PER NURSING PROTOCOL Performed By: #### L 501.080 ####[facility] [address] [place], [address] Bilirubin, totalOrdered By: Maddie Merchant on 03-08-2025 Bilirubin [Mass/Vol] 0.25 mg/dL 0.00-1.30 [facility] CBC W/Diff, Automatedon 02-18 Absolute Lymph 1.08 X10 3/uL Normal 0.83-4.51 [facility] Comment on above: Performed By: #### L 501.3620, L100.0100, L500.4050, L501.9985, L503.0106, L503.6030, L503.6550 ####[facility] [address] [place], [address] Absolute Neut 7.1 X10 3/uL Normal 2.0-7.7 [facility] Comment on above: Performed By: #### L 501.3620, L100.0100, L500.4050, L501.9985, L503.0106, L503.6030, L503.6550 ####[facility] [address] [place], [address] Basophils/100 WBC (Bld) 0.4 % Normal 0-1 [facility] Comment on above: Performed By: #### L 501.3620, L100.0100, L500.4050, L501.9985, L503.0106, L503.6030, L503.6550 ####[facility] [address] [place], [address] Eosinophils/100 WBC (Bld) 1.6 % Normal 0-5 [facility] Comment on above: Performed By: #### L 501.3620, L100.0100, L500.4050, L501.9985, L503.0106, L503.6030, L503.6550 ####[facility] [address] [place], [address] Erythrocyte distribution width (RBC) [Ratio] 14.5 % Normal 11.6-14.6 [facility] Comment on above: Performed By: #### L 501.3620, L100.0100, L500.4050, L501.9985, L503.0106, L503.6030, L503.6550 ####[facility] [address] [place], [address] Hematocrit (Bld) [Volume fraction] 25.1 % Low 37-47 [facility] Comment on above: Performed By: #### L 501.3620, L100.0100, L500.4050, L501.9985, L503.0106, L503.6030, L503.6550 ####[facility] [address] [place], [address] Hemoglobin (Bld) [Mass/Vol] 7.9 g/dL Low 12.0-15.0 [facility] Comment on above: Performed By: #### L 501.3620, L100.0100, L500.4050, L501.9985, L503.0106, L503.6030, L503.6550 ####[facility] [address] [place], [address] IG% 0.700 Normal 0.0-0.9 [facility] Comment on above: Result Comment: IG% - Immature Granulocytes (promyelocytes, myelocytes andmetamyelocytes) > 1% indicates that a LEFT SHIFT is Present. Performed By: #### L 501.3620, L100.0100, L500.4050, L501.9985, L503.0106, L503.6030, L503.6550 ####[facility] [address] [place], [address] Lymphocytes/100 WBC (Bld) 11.7 % Low 19-41 [facility] Comment on above: Performed By: #### L 501.3620, L100.0100, L500.4050, L501.9985, L503.0106, L503.6030, L503.6550 ####[facility] [address] [place], [address] MCH (RBC) [Entitic mass] 28.2 pg Normal 27.0-32.0 [facility] Comment on above: Performed By: #### L 501.3620, L100.0100, L500.4050, L501.9985, L503.0106, L503.6030, L503.6550 ####[facility] [address] [place], [address] MCHC (RBC) [Mass/Vol] 31.5 g/dL Low 32-36 [facility] Comment on above: Performed By: #### L 501.3620, L100.0100, L500.4050, L501.9985, L503.0106, L503.6030, L503.6550 ####[facility] [address] [place], [address] MCV (RBC) [Entitic vol] 89.6 fL Normal 81-99 [facility] Comment on above: Performed By: #### L 501.3620, L100.0100, L500.4050, L501.9985, L503.0106, L503.6030, L503.6550 ####[facility] [address] [place], [address] Monocytes/100 WBC (Bld) 9.1 % Normal 0-10 [facility] Comment on above: Performed By: #### L 501.3620, L100.0100, L500.4050, L501.9985, L503.0106, L503.6030, L503.6550 ####[facility] [address] [place], [address] Neutrophils/100 WBC (Bld) 76.5 % High 47-70 [facility] Comment on above: Performed By: #### L 501.3620, L100.0100, L500.4050, L501.9985, L503.0106, L503.6030, L503.6550 ####[facility] [address] [place], [address] Nucleated RBC (Bld) [#/Vol] 0 10*3/uL Normal 0-5 [facility] Comment on above: Performed By: #### L 501.3620, L100.0100, L500.4050, L501.9985, L503.0106, L503.6030, L503.6550 ####[facility] [address] [place], [address] Platelet mean volume (Bld) [Entitic vol] 11.6 fL Normal 6.2-12.0 [facility] Comment on above: Performed By: #### L 501.3620, L100.0100, L500.4050, L501.9985, L503.0106, L503.6030, L503.6550 ####[facility] [address] [place], [address] Platelets (Bld) [#/Vol] 185 10*3/uL Normal 150-450 [facility] Comment on above: Performed By: #### L 501.3620, L100.0100, L500.4050, L501.9985, L503.0106, L503.6030, L503.6550 ####[facility] [address] [place], [address] RBC (Bld) [#/Vol] 2.80 10*6/uL Low 4.2-5.4 [facility] Comment on above: Performed By: #### L 501.3620, L100.0100, L500.4050, L501.9985, L503.0106, L503.6030, L503.6550 ####[facility] [address] [place], [address] RDW SD 46.7 fl High 35.1-43.9 [facility] Comment on above: Performed By: #### L 501.3620, L100.0100, L500.4050, L501.9985, L503.0106, L503.6030, L503.6550 ####[facility] [address] [place], [address] WBC (Bld) [#/Vol] 9.2 10*3/uL Normal 4.4-11.0 [facility] Comment on above: Performed By: #### L 501.3620, L100.0100, L500.4050, L501.9985, L503.0106, L503.6030, L503.6550 ####[facility] [address] [place], [address] CPK Total, Creatine Kinaseon 03-08-2025 CPK TOTAL 736 U/L High 24-195 [facility] Comment on above: Performed By: #### L 501.3620, L100.0100, L500.4050, L501.9985, L503.0106, L503.6030, L503.6550 ####[facility] [address] [place], [address] Comprehensive Metabolic Prof ilon 03-08-2025 Albumin [Mass/Vol] 2.6 g/dL Low 3.4-4.8 [facility] Comment on above: Performed By: #### L 501.3620, L100.0100, L500.4050, L501.9985, L503.0106, L503.6030, L503.6550 ####[facility] [address] [place], [address] Albumin/Globulin [Mass ratio] 1.1 {ratio} Normal 0.9-2.4 [facility] Comment on above: Performed By: #### L 501.3620, L100.0100, L500.4050, L501.9985, L503.0106, L503.6030, L503.6550 ####[facility] [address] [place], [address] ALK PHOS 58 U/L Normal 35-104 [facility] Comment on above: Performed By: #### L 501.3620, L100.0100, L500.4050, L501.9985, L503.0106, L503.6030, L503.6550 ####[facility] [address] [place], [address] ALT [Catalytic activity/Vol] 48 U/L High <=34 [facility] Comment on above: Performed By: #### L 501.3620, L100.0100, L500.4050, L501.9985, L503.0106, L503.6030, L503.6550 ####[facility] [address] [place], [address] AST [Catalytic activity/Vol] 45 U/L High <=31 [facility] Comment on above: Performed By: #### L 501.3620, L100.0100, L500.4050, L501.9985, L503.0106, L503.6030, L503.6550 ####[facility] [address] [place], [address] Bilirubin [Mass/Vol] 0.25 mg/dL Normal 0.00-1.30 [facility] Comment on above: Performed By: #### L 501.3620, L100.0100, L500.4050, L501.9985, L503.0106, L503.6030, L503.6550 ####[facility] [address] [place], [address] BUN/CRE 52.5 RATIO High 10-20 [facility] Comment on above: Performed By: #### L 501.3620, L100.0100, L500.4050, L501.9985, L503.0106, L503.6030, L503.6550 ####[facility] [address] [place], [address] Calcium [Mass/Vol] 8.1 mg/dL Normal 7.6-11.0 [facility] Comment on above: Performed By: #### L 501.3620, L100.0100, L500.4050, L501.9985, L503.0106, L503.6030, L503.6550 ####[facility] [address] [place], [address] Chloride [Moles/Vol] 111 mmol/L High 98-108 [facility] Comment on above: Performed By: #### L 501.3620, L100.0100, L500.4050, L501.9985, L503.0106, L503.6030, L503.6550 ####[facility] [address] [place], [address] CO2 [Moles/Vol] 17.3 mmol/L Low 21.0-32.0 [facility] Comment on above: Performed By: #### L 501.3620, L100.0100, L500.4050, L501.9985, L503.0106, L503.6030, L503.6550 ####[facility] [address] [place], [address] Creatinine [Mass/Vol] 2.02 mg/dL High 0.70-1.20 [facility] Comment on above: Performed By: #### L 501.3620, L100.0100, L500.4050, L501.9985, L503.0106, L503.6030, L503.6550 ####[facility] [address] [place], [address] ECRCL 25.62 ml/min Low 50-250 [facility] Comment on above: Performed By: #### L 501.3620, L100.0100, L500.4050, L501.9985, L503.0106, L503.6030, L503.6550 ####[facility] [address] [place], [address] GAP 14 Normal 5-15 [facility] Comment on above: Performed By: #### L 501.3620, L100.0100, L500.4050, L501.9985, L503.0106, L503.6030, L503.6550 ####[facility] [address] [place], [address] GFR/1.73 sq M.predicted among non-blacks MDRD (S/P/Bld) [Vol rate/Area] 26 mL/min/{1.73_m2} Low >60 [facility] Comment on above: Result Comment: mL/m in/1.73m2 CKD-EPI Creatinine Equation (2020) Performed By: #### L 501.3620, L100.0100, L500.4050, L501.9985, L503.0106, L503.6030, L503.6550 ####[facility] [address] [place], [address] Globulin (S) [Mass/Vol] 2.4 g/dL Normal 2.2-4.2 [facility] Comment on above: Performed By: #### L 501.3620, L100.0100, L500.4050, L501.9985, L503.0106, L503.6030, L503.6550 ####[facility] [address] [place], [address] Glucose [Mass/Vol] 172 mg/dL High 70-99 [facility] Comment on above: Performed By: #### L 501.3620, L100.0100, L500.4050, L501.9985, L503.0106, L503.6030, L503.6550 ####[facility] [address] [place], [address] Potassium [Moles/Vol] 3.8 mmol/L Normal 3.3-5.1 [facility] Comment on above: Performed By: #### L 501.3620, L100.0100, L500.4050, L501.9985, L503.0106, L503.6030, L503.6550 ####[facility] [address] [place], [address] Sodium [Moles/Vol] 143 mmol/L Normal 133-145 [facility] Comment on above: Performed By: #### L 501.3620, L100.0100, L500.4050, L501.9985, L503.0106, L503.6030, L503.6550 ####[facility] [address] [place], [phone] T PROT 5.1 g/dL Low 5.9-8.4 [facility] Comment on above: Performed By: #### L 501.3620, L100.0100, L500.4050, L501.9985, L503.0106, L503.6030, L503.6550 ####[facility] [address] [place], [place], [phone] Urea nitrogen [Mass/Vol] 106 mg/dL Invalid Interpretation Code 4-19 [facility] Comment on above: Result Comment: Crit ical Result(s) Called at: by:??Results read back bysame.Critical Result(s) Called to Zoraida PENNINGTON (MS3): byLebron.Stoner:??Results read back by same. Performed By: #### L 501.3620, L100.0100, L500.4050, L501.9985, L503.0106, L503.6030, L503.6550 ####[facility] [address] [place], [place], [phone] Ferritinon 03-08-2025 Ferritin [Mass/Vol] 270 ng/mL Normal 22-378 [facility] Comment on above: Performed By: #### L 501.3620, L100.0100, L500.4050, L501.9985, L503.0106, L503.6030, L503.6550 ####[facility] [address] [place], [place], [phone] HH, Hemoglobin AND Hematocri ton 03-08-2025 Hematocrit (Bld) [Volume fraction] 24.0 % Low 37-47 [facility] Comment on above: Performed By: #### L 100.0600 ####[facility] [address] [place], [address] Hemoglobin (Bld) [Mass/Vol] 7.7 g/dL Low 12.0-15.0 [facility] Comment on above: Performed By: #### L 100.0600 ####[facility] [address] [place], [address] Hemoglobin A1con 03-08-2025 HbA1c (Bld) [Mass fraction] 6.5 % High <=5.6 [facility] Comment on above: Result Comment: Norm al < 5.7 % Prediabetic 5.7 - 6.4 % Diabetic >or= 6.5 % Please note range changes. Performed By: #### L 501.3620, L100.0100, L500.4050, L501.9985, L503.0106, L503.6030, L503.6550 ####[facility] [address] [place], [address] Hemoglobin A1c percentageOrd ered By: Maddie Merchant on 03-08-2025 HbA1c (Bld) [Mass fraction] 6.5 % High <5.7 [facility] Comment on above: Normal < 5.7 % Predi abetic 5.7 - 6.4 % Diabetic >or= 6.5 % Please note range changes. Iron measurement (mass/mass) Ordered By: Maddie Merchant on 03-08-2025 Iron (Unsp spec) [Mass/Mass] 18 ug/dL Low 50-170 [facility] Iron+Iron Binding Capacityon 03-08-2025 TIBC TNP Normal 250-450 [facility] Comment on above: Performed By: #### L 501.3620, L100.0100, L500.4050, L501.9985, L503.0106, L503.6030, L503.6550 ####[facility] [address] [place], [address] Laboratory - Chemistry and C hemistry - challengeOrdered By: Maddie Merchant on 03-08-2025 AST [Catalytic activity/Vol] 45 U/L High <32 [facility] No Panel InformationOrdered By: Maddie Merchant on 03-08-2025 Unsaturated Iron Binding Capacity 150 ug/dL Low 228-428 [facility] Serum globulin measurementOr dered By: Maddie Merchant on 03-08-2025 Globulin (S) [Mass/Vol] 2.4 g/dL 2.2-4.2 [facility] Serum or plasma alanine anaya otransferase (ALT) measurementOrdered By: Maddie Merchant on 03-08-2025 ALT [Catalytic activity/Vol] 48 U/L High <35 [facility] Serum or plasma albumin natalia urement (mass/volume)Ordered By: Maddie Merchant on 03-08-2025 Albumin [Mass/Vol] 2.6 g/dL Low 3.4-4.8 [facility] Serum or plasma albumin/glob ulin mass ratioOrdered By: Maddie Merchant on 03-08-2025 Albumin/Globulin [Mass ratio] 1.1 {ratio} 0.9-2.4 [facility] Serum or plasma alkaline chelsie sphatase measurementOrdered By: Maddie Merchant 03-08-2025 ALP [Catalytic activity/Vol] 58 U/L 35-104 [facility] Serum or plasma ferritin areli surement (mass/volume)Ordered By: Maddie Merchant on 03-08-2025 Ferritin [Mass/Vol] 270 ng/mL 22-378 [facility] Serum or plasma iron saturat ion measurement (mass fraction)Ordered By: Maddie Merchant on 03-08-2025 Iron saturation [Mass fraction] 11.0 % Low 13-59 [facility] Total proteinOrdered By: Aut umn Shonda on 03-08-2025 Protein [Mass/Vol] 5.1 g/dL Low 5.9-8.4 [facility] Vitamin B12on 03-08-2025 Cobalamin (Vitamin B12) [Mass/Vol] 3538 pg/mL High 180-914 [facility] Comment on above: Performed By: #### L 501.3620, L100.0100, L500.4050, L501.9985, L503.0106, L503.6030, L503.6506 ####[facility] [address] [place], [address] Vitamin B12 ser/plasOrdered By: Maddie Merchant on 03-08-2025 Cobalamin (Vitamin B12) [Mass/Vol] 3538 pg/mL High 180-914 [facility] 12 Lead EKGon 03-07-2025 12 Lead EKG Normal [facility] Absolute neutrophil countOrd ered By: Megan Anderson on 03-07-2025 Neutrophils (Bld) [#/Vol] 12.9 10*3/uL High 2.0-7.7 [facility] Anion gap in Serum or Plasma Ordered By: Megan Anderson on 03-07-2025 Anion gap [Moles/Vol] 18 mmol/L High 5-15 [facility] BUN/creatinine ratioOrdered By: Megan Anderson on 03-07-2025 Urea nitrogen/Creatinine [Mass ratio] 51.2 mg/mg High 10- [facility] Basic Metabolic Profile (BMP )on 03-07-2025 BUN/CRE 51.2 RATIO High - [facility] Comment on above: Performed By: #### L 500.2500, L501.3620, L100.0100 ####[facility] [address] [place], [address] Calcium [Mass/Vol] 8.8 mg/dL Normal 7.6-11.0 [facility] Comment on above: Performed By: #### L 500.2500, L501.3620, L100.0100 ####[facility] [address] [place], [address] Chloride [Moles/Vol] 105 mmol/L Normal 98-108 [facility] Comment on above: Performed By: #### L 500.2500, L501.3620, L100.0100 ####[facility] [address] [place], [address] CO2 [Moles/Vol] 16.8 mmol/L Low 21.0-32.0 [facility] Comment on above: Performed By: #### L 500.2500, L501.3620, L100.0100 ####[facility] [address] [place], [address] Creatinine [Mass/Vol] 2.54 mg/dL High 0.70-1.20 [facility] Comment on above: Performed By: #### L 500.2500, L501.3620, L100.0100 ####[facility] [address] [place], [address] ECRCL 20.75 ml/min Low 50-250 [facility] Comment on above: Performed By: #### L 500.2500, L501.3620, L100.0100 ####[facility] [address] [place], [address] GAP 18 High 5-15 [facility] Comment on above: Performed By: #### L 500.2500, L501.3620, L100.0100 ####[facility] [address] [place], [address] GFR/1.73 sq M.predicted among non-blacks MDRD (S/P/Bld) [Vol rate/Area] 19 mL/min/{1.73_m2} Low >60 [facility] Comment on above: Result Comment: mL/m in/1.73m2 CKD-EPI Creatinine Equation (2020) Performed By: #### L 500.2500, L501.3620, L100.0100 ####[facility] [address] [place], [address] Glucose [Mass/Vol] 178 mg/dL High 70-99 [facility] Comment on above: Performed By: #### L 500.2500, L501.3620, L100.0100 ####[facility] [address] [place], [address] Potassium [Moles/Vol] 4.5 mmol/L Normal 3.3-5.1 [facility] Comment on above: Performed By: #### L 500.2500, L501.3620, L100.0100 ####[facility] [address] [place], [address] Sodium [Moles/Vol] 140 mmol/L Normal 133-145 [facility] Comment on above: Performed By: #### L 500.2500, L501.3620, L100.0100 ####[facility] [address] [place], [address] Urea nitrogen [Mass/Vol] 130 mg/dL Invalid Interpretation Code 03-07 [facility] Comment on above: Result Comment: Crit ical Result(s) Called at: by:??[facility].Critical Result(s) Called ACOLE at: 1532 by:CHRISTIN??Results read back by same. Performed By: #### L 500.2500, L501.3620, L100.0100 ####[facility] [address] [place], [address] Basophil percentageOrdered B y: Megan Anderson on 03-07-2025 Basophils/100 WBC (Bld) 0.3 % 0-1 [facility] Bilirubin Test strip Ql (U)O rdered By: Megan Anderson on 03-07-2025 Bilirubin Ql (U) Negative Negative [facility] Bilirubin directOrdered By: Maddie Merchant on 03-07-2025 Bilirubin.direct [Mass/Vol] 0.25 mg/dL 0.00-0.30 [facility] CBC W/Diff, Automatedon 04- Absolute Lymph 0.76 X10 3/uL Low 0.83-4.51 [facility] Comment on above: Performed By: #### L 500.2500, L501.3620, L100.0100 ####[facility] [address] [place], [address] Absolute Neut 12.9 X10 3/uL High 2.0-7.7 [facility] Comment on above: Performed By: #### L 500.2500, L501.3620, L100.0100 ####[facility] [address] [place], [address] Basophils/100 WBC (Bld) 0.3 % Normal 0-1 [facility] Comment on above: Performed By: #### L 500.2500, L501.3620, L100.0100 ####[facility] [address] [place], [address] Eosinophils/100 WBC (Bld) 0.4 % Normal 0-5 [facility] Comment on above: Performed By: #### L 500.2500, L501.3620, L100.0100 ####[facility] [address] [place], [address] Erythrocyte distribution width (RBC) [Ratio] 14.5 % Normal 11.6-14.6 [facility] Comment on above: Performed By: #### L 500.2500, L501.3620, L100.0100 ####[facility] [address] [place], [address] Hematocrit (Bld) [Volume fraction] 27.2 % Low 37-47 [facility] Comment on above: Performed By: #### L 500.2500, L501.3620, L100.0100 ####[facility] [address] [place], [address] Hemoglobin (Bld) [Mass/Vol] 8.7 g/dL Low 12.0-15.0 [facility] Comment on above: Performed By: #### L 500.2500, L501.3620, L100.0100 ####[facility] [address] [place], [address] IG% 1.000 High 0.0-0.9 [facility] Comment on above: Result Comment: IG% - Immature Granulocytes (promyelocytes, myelocytes andmetamyelocytes) > 1% indicates that a LEFT SHIFT is Present. Performed By: #### L 500.2500, L501.3620, L100.0100 ####[facility] [address] [place], [address] Lymphocytes/100 WBC (Bld) 5.2 % Low 19-41 [facility] Comment on above: Performed By: #### L 500.2500, L501.3620, L100.0100 ####[facility] [address] [place], [address] MCH (RBC) [Entitic mass] 28.3 pg Normal 27.0-32.0 [facility] Comment on above: Performed By: #### L 500.2500, L501.3620, L100.0100 ####[facility] [address] [place], [address] MCHC (RBC) [Mass/Vol] 32.0 g/dL Normal 32-36 [facility] Comment on above: Performed By: #### L 500.2500, L501.3620, L100.0100 ####[facility] [address] [place], [address] MCV (RBC) [Entitic vol] 88.6 fL Normal 81-99 [facility] Comment on above: Performed By: #### L 500.2500, L501.3620, L100.0100 ####[facility] [address] [place], [address] Monocytes/100 WBC (Bld) 5.3 % Normal 0-10 [facility] Comment on above: Performed By: #### L 500.2500, L501.3620, L100.0100 ####[facility] [address] [place], [address] Neutrophils/100 WBC (Bld) 87.8 % High 47-70 [facility] Comment on above: Performed By: #### L 500.2500, L501.3620, L100.0100 ####[facility] [address] [place], [address] Nucleated RBC (Bld) [#/Vol] 0 10*3/uL Normal 0-5 [facility] Comment on above: Performed By: #### L 500.2500, L501.3620, L100.0100 ####[facility] [address] [place], [address] Platelet mean volume (Bld) [Entitic vol] 11.3 fL Normal 6.2-12.0 [facility] Comment on above: Performed By: #### L 500.2500, L501.3620, L100.0100 ####[facility] [address] [place], [address] Platelets (Bld) [#/Vol] 216 10*3/uL Normal 150-450 [facility] Comment on above: Performed By: #### L 500.2500, L501.3620, L100.0100 ####[facility] [address] [place], [address] RBC (Bld) [#/Vol] 3.07 10*6/uL Low 4.2-5.4 [facility] Comment on above: Performed By: #### L 500.2500, L501.3620, L100.0100 ####[facility] [address] [place], [address] RDW SD 45.6 fl High 35.1-43.9 [facility] Comment on above: Performed By: #### L 500.2500, L501.3620, L100.0100 ####[facility] [address] [place], [address] WBC (Bld) [#/Vol] 14.7 10*3/uL High 4.4-11.0 [facility] Comment on above: Performed By: #### L 500.2500, L501.3620, L100.0100 ####[facility] [address] [place], [address] CPK Total, Creatine Kinaseon 03-07-2025 CPK TOTAL 837 U/L High 24-195 [facility] Comment on above: Performed By: #### L 500.2500, L501.3620, L100.0100 ####[facility] [address] [place], [address] Carbon dioxide, total [Moles /volume] in Central venous bloodOrdered By: Megan Anderson on 03-07-2025 CO2 [Moles/Vol] 16.8 mmol/L Low 21.0-32.0 [facility] Chest 1 View (Portable)on Chest 1 View (Portable) Normal [facility] Chloride assayOrdered By: Teri Anderson on 03-07-2025 Chloride [Moles/Vol] 105 mmol/L 98-108 [facility] Emergency Department Summary on 03-07-2025 Emergency Department Summary Normal [facility] Eosinophil percentageOrdered By: Megan Anderson on 03-07-2025 Eosinophils/100 WBC (Bld) 0.4 % 0-5 [facility] Epithelial cells.squamous LM Ql (Urine sed)Ordered By: Megan Anderson on 03-07-2025 Epithelial cells.squamous LM.HPF (Urine sed) [#/Area] 0 /[HPF] 5-10 [facility] Erythrocyte distribution wid th (RBC) [Ratio]Ordered By: Megan Anderson on 03-07-2025 Erythrocyte distribution width (RBC) [Entitic vol] 45.6 fL High 35.1-43.9 [facility] Erythrocyte distribution wid th ratioOrdered By: Megan Anderson on 03-07-2025 Erythrocyte distribution width (RBC) [Ratio] 14.5 % 11.6-14.6 [facility] Estimation of creatinine chirag aranceOrdered By: Megan Anderson on 03-07-2025 Estimated Creatinine Clearance Calc 20.75 ml/min Low 50-250 [facility] GFR/1.73 sq M.predicted sadia g non-blacks MDRD (S/P/Bld) [Vol rate/Area]Ordered By: Megan Anderson on 03-07-2025 Estimated GFR (MDRD) Non-Af Amer 19 Low >60 [facility] Comment on above: mL/min/1.73m2 CKD-EP I Creatinine Equation (2020) Glucose Ql (U)Ordered By: Teri Anderson on 03-07-2025 Urine Glucose (UA) Normal mg/dl Normal [facility] H AND P Exam - Hospitaliston 03-07-2025 H&P Exam - Hospitalist Normal [facility] HH, Hemoglobin AND Hematocri ton 03-07-2025 Hematocrit (Bld) [Volume fraction] 25.0 % Low 37-47 [facility] Comment on above: Performed By: #### L 100.0600 ####[facility] [address] [place], [place], [id number] Hemoglobin (Bld) [Mass/Vol] 8.3 g/dL Low 12.0-15.0 [facility] Comment on above: Performed By: #### L 100.0600 ####[facility] [address] [place], [place], [id number] HIP, UNI W/ Pelvis 2-3 Views on 03-07-2025 HIP, UNI W/ Pelvis 2-3 Views Normal [facility] Hematocrit Auto (Bld) [Volum e fraction]Ordered By: Megan Anderson on 03-07-2025 Hematocrit (Bld) [Volume fraction] 27.2 % Low 37-47 [facility] Hemoglobin measurementOrdere d By: Megan Anderson on 03-07-2025 Hemoglobin (Bld) [Mass/Vol] 8.7 g/dL Low 12.0-15.0 [facility] Immature granulocytes/100 WB C Auto (Bld)Ordered By: Megan Anderson on 03-07-2025 Immature granulocytes/100 WBC (Bld) 1.000 % High 0.0-0.9 [facility] Comment on above: IG% - Immature Granu locytes (promyelocytes, myelocytes and metamyelocytes) > 1% indicates that a LEFT SHIFT is Present. Ketones Test strip Ql (U)Ord ered By: Meganayde Anderson on 03-07-2025 Ketones Ql (U) 5 mg/dl High Negative [facility] Liver Profileon 03-07-2025 Albumin [Mass/Vol] 3.1 g/dL Low 3.4-4.8 [facility] Comment on above: Order Comment: Comme nts: May add to ED labsComments: may add to ED labs Performed By: #### L 501.5200, L501.2300, L500.3400 ####[facility] [address] [place], [address] ALK PHOS 66 U/L Normal 35-104 [facility] Comment on above: Order Comment: Comme nts: May add to ED labsComments: may add to ED labs Performed By: #### L 501.5200, L501.2300, L500.3400 ####[facility] [address] [place], [address] ALT [Catalytic activity/Vol] 60 U/L High <=34 [facility] Comment on above: Order Comment: Comme nts: May add to ED labsComments: may add to ED labs Performed By: #### L 501.5200, L501.2300, L500.3400 ####[facility] [address] [place], [address] AST [Catalytic activity/Vol] 52 U/L High <=31 [facility] Comment on above: Order Comment: Comme nts: May add to ED labsComments: may add to ED labs Performed By: #### L 501.5200, L501.2300, L500.3400 ####[facility] [address] [place], [address] Bilirubin [Mass/Vol] 0.42 mg/dL Normal 0.00-1.30 [facility] Comment on above: Order Comment: Comme nts: May add to ED labsComments: may add to ED labs Performed By: #### L 501.5200, L501.2300, L500.3400 ####[facility] [address] [place], [address] Bilirubin.direct [Mass/Vol] 0.25 mg/dL Normal 0.00-0.30 [facility] Comment on above: Order Comment: Comme nts: May add to ED labsComments: may add to ED labs Performed By: #### L 501.5200, L501.2300, L500.3400 ####[facility] [address] [place], [address] Globulin (S) [Mass/Vol] 2.8 g/dL Normal 2.2-4.2 [facility] Comment on above: Order Comment: Comme nts: May add to ED labsComments: may add to ED labs Performed By: #### L 501.5200, L501.2300, L500.3400 ####[facility] [address] [place], [address] T PROT 5.9 g/dL Normal 5.9-8.4 [facility] Comment on above: Order Comment: Comme nts: May add to ED labsComments: may add to ED labs Performed By: #### L 501.5200, L501.2300, L500.3400 ####[facility] [address] [place], [address] Lower GI hemoglobin IA Ql (S tl)Ordered By: Megan Anderson on 03-07-2025 Stool Occult Blood (ERICA) Positive Abnormal [facility] Lymphocytes Auto (Unsp spec) [#/Vol]Ordered By: Megan Anderson on 03-07-2025 Lymphocytes (Bld) [#/Vol] 0.76 10*3/uL Low 0.83-4.51 [facility] Lymphocytes/100 WBC Auto (Un sp spec)Ordered By: Megan Anderson on 03-07-2025 Lymphocytes/100 WBC (Bld) 5.2 % Low 19-41 [facility] MCV (mean corpuscular volume ) determinationOrdered By: Megan Anderson on 03-07-2025 MCV (RBC) [Entitic vol] 88.6 fL 81-99 [facility] Magnesiumon 03-07-2025 Magnesium [Mass/Vol] 2.9 mg/dL High 1.5-2.2 [facility] Comment on above: Order Comment: Comme nts: May add to ED labsComments: may add to ED labs Performed By: #### L 501.5200, L501.2300, L500.3400 ####[facility] [address] [place], [address] Magnesium measurement (mass/ volume)Ordered By: Maddie Merchant on 03-07-2025 Magnesium (Unsp spec) [Mass/Vol] 2.9 mg/dL High 1.5-2.2 [facility] Mean corpuscular hemoglobin (MCH) determinationOrdered By: Megan Anderson on 03-07-2025 MCH (RBC) [Entitic mass] 28.3 pg 27.0-32.0 [facility] Mean corpuscular hemoglobin concentration (MCHC) determinationOrdered By: Megan Anderson on 03-07-2025 MCHC (RBC) [Mass/Vol] 32.0 g/dL 32-36 [facility] Mean platelet volume determi nationOrdered By: Megan Anderson on 03-07-2025 Platelet mean volume (Bld) [Entitic vol] 11.3 fL 6.2-12.0 [facility] Microscopic analysis of urin e for red blood cells (RBC)Ordered By: Megan Anderson on 03-07-2025 Microscopic analysis of urine for red blood cells (RBC) 0 SEEN /hpf 0-5 [facility] Urine RBC 0 SEEN /hpf 0-5 [facility] Monocyte percentageOrdered B y: Megan Anderson on 03-07-2025 Monocytes/100 WBC (Bld) 5.3 % 0-10 [facility] Mucus LM Ql (Urine sed)Order ed By: Megan Anderson on 03-07-2025 Mucus Ql (Urine sed) 0 SEEN /hpf [facility] Neutrophil percentageOrdered By: Megan Anderson on 03-07-2025 Neutrophils/100 WBC (Bld) 87.8 % High 47-70 [facility] Nitrite Test strip Ql (U)Ord ered By: Megan Anderson on 03-07-2025 Nitrite Ql (U) Positive High Negative [facility] Nucleated red blood cell per centageOrdered By: Megan Anderson on 03-07-2025 Nucleated RBC/100 WBC (Bld) [Ratio] 0 % 0-5 [facility] Phosphoruson 03-07-2025 Phosphate [Mass/Vol] 5.0 mg/dL High 2.7-4.5 [facility] Comment on above: Order Comment: Comme nts: May add to ED labsComments: may add to ED labs Performed By: #### L 501.5200, L501.2300, L500.3400 ####[facility] [address] [place], [address] Platelet countOrdered By: Teri Anderson on 03-07-2025 Platelets (Bld) [#/Vol] 216 10*3/uL 150-450 [facility] Potassium (Unsp spec) [Mass/ Vol]Ordered By: Megan Anderson on 03-07-2025 Potassium [Moles/Vol] 4.5 mmol/L 3.3-5.1 [facility] Protein Test strip Ql (U)Ord ered By: Megan Anderson on 03-07-2025 Protein Ql (U) 30 mg/dl High Negative [facility] RBC Auto (Bld) [#/Vol]Ordere d By: Megan Anderson on 03-07-2025 RBC (Bld) [#/Vol] 3.07 10*6/uL Low 4.2-5.4 [facility] Serum creatinine measurement (mass/volume)Ordered By: Megan Anderson on 03-07-2025 Creatinine [Mass/Vol] 2.54 mg/dL High 0.70-1.20 [facility] Serum glucose measurement (m ass/volume)Ordered By: Megan Anderson on 03-07-2025 Glucose [Mass/Vol] 178 mg/dL High 70-99 [facility] Serum or plasma calcium natalia urement (mass/volume)Ordered By: Megan Anderson on 03-07-2025 Calcium [Mass/Vol] 8.8 mg/dL 7.6-11.0 [facility] Serum or plasma creatine kin ase activityOrdered By: Megan Anderson on 03-07-2025 CK [Catalytic activity/Vol] 837 U/L High 24-195 [facility] Serum or plasma urea nitroge n measurement (mass/volume)Ordered By: Megan Anderson on 03-07-2025 Urea nitrogen [Mass/Vol] 130 mg/dL High 4-19 [facility] Comment on above: Critical Result(s) C alled at: by: Results read back by same.Critical Result(s) Called ACOLE at: 1532 by: CHRISTIN Results read back by same. Sodium levelOrdered By: Megan Anderson on 03-07-2025 Sodium [Moles/Vol] 140 mmol/L 133-145 [facility] Squamous epithelial cells de tection in urine sediment by light microscopyOrdered By: Megan Anderson on 03-07-2025 Epithelial cells.squamous LM Ql (Urine sed) 0 SEEN /hpf 5-10 [facility] Stool Occult Blood iFOBon STOB Positive Normal [facility] Comment on above: Performed By: #### M 100.7900 ####[facility] [address] [place], [address] Stool gastrointestinal hemog lobin detection by immunologic methodOrdered By: Megan Anderson on 03-07-2025 Lower GI hemoglobin IA Ql (Stl) Positive Abnormal [facility] Type AND Screenon 03-07-2025 ABO and Rh group Nom (Bld) Blood group A Rh(D) positive Normal [facility] Comment on above: Order Comment: HGI Performed By: #### B TS ####[facility] [address] [place], [address] Urinalysis, Completeon 03-07 BACTERIA 1+ /hpf Normal None Seen [facility] Comment on above: Order Comment: CORRIE CTOR TO SPECIFY Performed By: #### L 400.0001 ####[facility] [address] [place], [address] WBC >100 SEEN Normal 0-5 [facility] Comment on above: Order Comment: CORRIE CTOR TO SPECIFY Performed By: #### L 400.0001 ####[facility] [address] [place], [address] EPI,SQUAMOUS 0 SEEN Normal 5-10 [facility] Comment on above: Order Comment: CORRIE CTOR TO SPECIFY Performed By: #### L 400.0001 ####[facility] [address] [place], [address] Mucus Ql (Urine sed) 0 SEEN Normal [facility] Comment on above: Order Comment: CORRIE CTOR TO SPECIFY Performed By: #### L 400.0001 ####[facility] [address] [place], [address] RBC 0 SEEN Normal 0-5 [facility] Comment on above: Order Comment: CORRIE CTOR TO SPECIFY Performed By: #### L 400.0001 ####[facility] [address] [place], [address] Urine blood detectionOrdered By: Megan Anderson on 03-07-2025 Urine Occult Blood 150 /ul High Negative [facility] Urine clarityOrdered By: Carmen Anderson on 03-07-2025 Clarity (U) Cloudy Clear [facility] Urine color determinationOrd ered By: Megan Anderson on 03-07-2025 Color (U) Yellow Yellow [facility] Urine cultureOrdered By: Mervin Becker on 03-07-2025 Bacteria identified Cx Nom (U) Klebsiella oxytoca Abnormal [facility] Urine glucose detectionOrder ed By: Megan Anderson on 03-07-2025 Glucose Ql (U) Normal mg/dl Normal [facility] Urine leukocyte esterase det ection by dipstickOrdered By: Meganayde Anderson on 03-07-2025 Leukocyte esterase Test strip Ql (U) 500 /ul High Negative [facility] Urine pHOrdered By: Meganayde louis on 03-07-2025 pH (U) 6.0 [pH] 5.0 - 8.0 [facility] Urine sediment bacteria coun t by microscopy (number/high power field)Ordered By: Megan Anderson on 03-07-2025 Bacteria LM.HPF (Urine sed) [#/Area] 1 /[HPF] None Seen [facility] Urine specific gravity measu rementOrdered By: Megan Anderson on 03-07-2025 Specific gravity (U) [Rel density] 1.015 1.002-1.030 [facility] Urine urobilinogen measureme ntOrdered By: Megan Anderson on 03-07-2025 Urobilinogen Ql (U) Normal mg/dl Normal [facility] Urobilinogen Ql (U)Ordered B y: Megan Anderson on 03-07-2025 Urine Urobilinogen Normal mg/dl Normal [facility] White blood cell (WBC) count Ordered By: Megan Anderson on 03-07-2025 WBC (Bld) [#/Vol] 14.7 10*3/uL High 4.4-11.0 [facility] White blood cell countOrdere d By: Megan Anderson on 03-07-2025 Urine WBC >100 SEEN /hpf 0-5 [facility] White blood cell count >100 SEEN /hpf 0-5 [facility] Culture, Anaerobic Any Sourc adonis 2025 CUAN Normal [facility] Comment on above: Performed By: #### M 100.1999, M100.3000, M100.4001 ####[facility] [address] [place], [place], [address] Wound Cultureon 02-28-2025 Normal [facility] Comment on above: Performed By: #### M 100.2000, M100.3000, M100.4001 ####[facility] [address] [place], [address] Gram Stainon 02-27-2025 GS LEFT FOOT WOUND GRAM STAIN Gram Stain No Epithelial cells 1+ Gram positive cocci 1+ White Blood Cells Normal [facility] Comment on above: Performed By: #### M 100.2000, M100.3000, M100.4001 ####[facility] [address] [place], [address] Anaerobic cultureOrdered By: Patel Irene on 02-26-2025 Bacteria identified Anaer cx Nom (Unsp spec) Anaerobic cocci Abnormal [facility] Bacteria identified Anaer cx Nom (Unsp spec)Ordered By: Paetl Irene on 02-26-2025 Anaerobic Culture Anaerobic cocci Abnormal [facility] Gram stainOrdered By: Keri Irene on 02-26-2025 Microscopic observation Gram stain Nom (Unsp spec) [facility] Routine wound cultureOrdered By: Patel Irene on 02-26-2025 Microbial culture, routine Meth. resistant Staph. aureus Abnormal [facility] Wound Culture Meth. resistant Stap h. aureus Abnormal [facility] Wound Cultureon 02-19-2025 WC Normal [facility] Comment on above: Performed By: #### M 100.3000, M1.1999 ####[facility] [address] [place], [address] Gram Stainon 02-17-2025 GS Gram Stain No White Blood Cells No organisms seen Normal [facility] Comment on above: Performed By: #### M 100.3000, M1.1999 ####[facility] [address] [place], [address] Decalcification bone/plaqueo n 02-16-2025 Decalcification bone/plaque Normal [facility] Comment on above: Performed By: #### P DEC ####[facility] [address] [place], [address] Gram stainOrdered By: Rishi Vasquez on 02-16-2025 Microscopic observation Gram stain Nom (Unsp spec) [facility] Routine wound cultureOrdered By: Rishi Vasquez on 02-16-2025 Microbial culture, routine Meth. resistant Staph. aureus Abnormal [facility] Wound Culture Meth. resistant Stap h. aureus Abnormal [facility] Wound Culture Negative Abnormal [facility] Wound Cultureon 02-06-2025 Normal [facility] Comment on above: Performed By: #### M 100.3000, ####[facility] [address] [place], [address] Gram Stainon 02-04-2025 GS Positive Normal [facility] Comment on above: Performed By: #### M 100.3000, ####[facility] [address] [place], [address] Gram stainOrdered By: Rishi Vasquez on 02-03-2025 Microscopic observation Gram stain Nom (Unsp spec) [facility] Routine wound cultureOrdered By: Rishi Vasquez on 02-03-2025 Microbial culture, routine Meth. resistant Staph. aureus Abnormal [facility] Wound Culture Meth. resistant Stap h. aureus Abnormal [facility] Lower Ext Art Exam w/o Exerc kris 01-06-2025 Lower Ext Art Exam w/o Exercis Normal [facility] Culture, Anaerobic Any Sourc adonis 01-03-2025 CUAN ONLY AN AEROBIC SWAB WAS RECEIVED FOR CULTURE. GROWTH OF ANAEROBES MAY BE INHIBITED. No anaerobic bacteria isolated. Normal [facility] Comment on above: Performed By: #### M 100.4001, , ####[facility] [address] [place], [address] Wound Cultureon 01-02-2025 WC Normal [facility] Comment on above: Performed By: #### M 100.4001, .1999, ####[facility] [address] [place], [address] Anaerobic cultureOrdered By: Patel Irene on 12-31-2024 Bacteria identified Anaer cx Nom (Unsp spec) No anaerobic bacteria isolated. [facility] Bacteria identified Anaer cx Nom (Unsp spec)Ordered By: Patel Irene on 12-31-2024 Anaerobic Culture No anaerobic bacteri a isolated. [facility] Gram Stainon 12-31-2024 GS ONLY AN AEROBIC SWAB WAS RECEIVED FOR CULTURE. GROWTH OF ANAEROBES MAY BE INHIBITED. Gram Stain 2+ Gram positive cocci 2+ Red Blood Cells Normal [facility] Comment on above: Performed By: #### M 100.4001, M100.2000, M100.3000 ####[facility] [address] [place], [address] Gram stainOrdered By: Keri Irene on 12-31-2024 Microscopic observation Gram stain Nom (Unsp spec) [facility] Routine wound cultureOrdered By: Patel Irene on 12-31-2024 Microbial culture, routine Meth. resistant Staph. aureus Abnormal [facility] Wound Culture Meth. resistant Stap h. aureus Abnormal [facility] [id number] 12-24-2024 [facility] Misc. COMMENT Normal . [facility] Comment on above: Order Comment: [id number] 1WOUND CULTURE Result Comment: Test Ordered: [id number] Anaerobic/Aerobic/Gram StainAnaerobic Culture Note: CB Final report Reference Range: .Result 1 Comment CB Reference Range: .No anaerobic growth in 72 hours.Aerobic Culture Note: [A ] CB Final report Reference Range: .Result 1 Comment [A ] CB Reference Range: .Methicillin - resistant Staphylococcus aureusBased on resistance to oxacillin this isolate would beresistant to all currently available beta-lactamantimicrobial agents, with the exception of the newercephalosporins with anti-MRSA activity, such as CeftarolineLight growthResult 2 Note: [A ] CB Enterococcus faecalis Reference Range: .For Enterococcus species, aminoglycosides (except for high-level resistance screening), cephalosporins, clindamycin,and trimethoprim-sulfamethoxazole are not effectiveclinically. (CLSI, P466-W49, 2016)Light growthEnterococci susceptible to penicillin are predictablysusceptible to ampicillin, amoxicillin, ampicillin-sulbactam, amoxicillin-clavulanate, and piperacillin-tazobactam for obq-itib-igdsjfaeu producing enterococci.(CLSI 2018)Antimicrobial Susceptibility Comment CB Reference Range: . S = Susceptible; I = Intermediate; R = Resistant P = Positive; N = Negative MICS are expressed in micrograms per mL Antibiotic RSLT#1 RSLT#2 RSLT#3 RSLT#4Ciprofloxacin RClindamycin RErythromycin RGentamicin SLevofloxacin RLinezolid S SOxacillin RPenicillin R SRifampin STetracycline STrimethoprim/Sulfa SVancomycin S SGram Stain Result Note: CB Final report Reference Range: .Result 1 Comment CB Reference Range: .No white blood cells seen.Result 2 Note: CB No organisms seen Reference Range: .Performed at: - [facility] [id number] Director: Chele Santoyo PhD, Phone: [phone] Performed By: #### L 3410.9998 ####[facility] [address] [place], [address] OVon 12-05-2024 [facility] Office Visit (FAMPWS ) -------- GELY NEWMAN Melinda ([id number]) 1950 F Date Time Provider Department 12/05/24 9:00 AM RISHI VASQUEZ FAMPWS During your visit today, we recorded the following information about you: Temperature Pulse Respiration Blood pressure 97 degrees 60/minute 16/minute 110/60 Weight 72 kg Rishi Vasquez, 12/05/2024 11:10 AM Signed Patient presents with: 6 Month Exam HPI: Gely Newman is a 74 year old female who presents to the office today for review of health conditions. Concerns today: PAD, vascular disease, no recent new ulcerations or skin sores Sciatica, b/l thigh pain, significant, worse with prolonged standing or walking. Seeing Dr. Franco for pain mgmt at [facility] and she is now taking Lyrica instead of gabapentin- does cause fatigue and some foggy brain symptoms. Helps pain minimally. Likely to have upcoming lumbar MRI. Had recent pelvic/hip MRI which shows OA changes Knows needs to get more exercise but struggles with this with her arthritis and sciatica pain Ms. Newman has past history of diabetes. Since our last visit she denies excessive thirst or increased frequency of urination, chest pain or dyspnea , new or unusual visual symptoms, and low sugar/hypoglycemic reactions. Depression- no. Follows a diabetic diet some of the time. She is compliant with medication(s) and is tolerating med(s) without any side effects. She reports checking her glucose on a once a day schedule with sugars in the <120 range. Patient's last HgA1C was Hemoglobin A1C (%) Date Value 12/01/2024 6.0 05/30/2024 6.2 11/28/2021 7.0 05/24/2021 6.7 Hemoglobin A1C (POCT) (%) Date Value 05/31/2022 6.2 ) Last Ophthalmology exam was within the past 12 months Ms. Newman reports history of hyperlipidemia. Current therapy includes simvastatin (Zocor) 40 mg. Denies side effects of muscle weakness or achiness. Her most recent lipid panels are reviewed. Cholesterol, Total (mg/dL) Date Value 12/01/2024 138 11/28/2021 190 HDL Cholesterol (mg/dL) Date Value 12/01/2024 44 11/28/2021 55 LDL Cholesterol (mg/dL) Date Value 12/01/2024 64 11/28/2021 95 Triglyceride (mg/dL) Date Value 12/01/2024 151 11/28/2021 199 Ms. Newman indicates a history of hypertension and states that she is feeling well and denies any symptoms referable to elevated blood pressure. Specifically denies headache, chest pain, palpitations, dyspnea, and peripheral edema. Patient denies any side effects of her medication(s) and is compliant with their regimen. Last 3 Encounter BP Readings: Date: BP: 12/05/2024 110/60 06/04/2024 154/70 01/15/2024 166/71 She watches her diet for sodium, low fat and low cholesterol some of the time. She does not check BP's generally. Gely gets sporadic irregular exercise. 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 Ch Frog Shaker, 90% blockage- unable to do stenting Diabetes mellitus type 2 in obese Diabetic feet (HCC) Gangrene (HCC) 2012 RIGHT FOOT Hypertension Mild non proliferative diabetic retinopathy (HCC) 06/11/2013 Both eyes, Dr. Ortiz [facility]-03/25/2020 left mild, right moderate Multiple thyroid nodules last US 01/2015 Peripheral artery disease (HCC) due to Diabetes mellitus, Dr. Kwaku Moscoso Rotator cuff syndrome of left shoulder Dr. Regi Thompson [facility] PAST SURGICAL HISTORY Procedure Laterality Date AMPUTATION TOE INTERPHALANGEAL JOINT 01-01-2013 left 5th toe due to diabetes gangrene ARTHROSCOPY KNEE DIAGNOSTIC W/WO SYNOVIAL BX SPX 12/31/13 Arthroscopy, knee lt COLONOSCOPY FLX DX W/COLLJ SPEC WHEN PFRMD 11-21-13 tubular adenomas, repeat in 3 years COLONOSCOPY FLX DX W/COLLJ SPEC WHEN PFRMD 10/25/2016 ESOPHAGOGASTRODUODENOSCO PY TRANSORAL DIAGNOSTIC 10/25/2016 EXC TUMOR SOFT TISS FOREARM AND/WRIST SUBQ 3+CM 09/08/14 Exc. right olecrenon dermal/SC mass FNA WITH IMAGING 03/17/15 U/S FNA bilateral thyroid PAST SURGICAL HISTORY OF Left foot - diabetic PAST SURGICAL HISTORY OF Left 06/2015 TKA PAST SURGICAL HISTORY OF Left 10/2016 excision of bone REVSC OPN/PRG FEM/POP W/ANGIOPLASTY UNI 12-31-12 RIGHT FOOT REVSC OPN/PRQ [facility]13 right leg REVSC OPN/PRQ FEM/POP W/ATHRC/ANGIOP [facility] 04-08-13 ROTATOR CUFF REPAIR 03/11/14 Dr. Regi Thompson [facility] SLCTV CATHJ EA 1ST ORD ABDL PEL/LXTR ART BRNCH 06-07-16 APLL Social History Tobacco Use Smoking status: Former Current packs/day: 0.00 Average packs/day: 0.5 packs/day for 45.0 years (22.5 ttl pk-yrs) Types: Cigarettes Start date: 12/20/1967 Quit date: 12/20/2012 Years since quittin.9 Smokeless tobacco: Never Substance Use Topics Alcohol use: No Drug use: No FAMILY H (more content not included)... Normal [facility] 25(OH)D3 Diegol-kikion 2024 25-hydroxyvitamin D3 [Mass/Vol] 62.6 ng/mL Normal 31.0-80.0 [facility] Comment on above: Order Comment: Speci men Type: BLOOD SPECIMEN Ordering Facility: [facility] Address: [address] [place] [address] Result Comment: Clas sification of 25 [place] Vitamin D status: Deficiency/Insufficiency: < or = 30 ng/ml. Sufficiency/Optimal Levels: 31-80 ng/mL Toxicity: > 100 ng/mL. Test performed by chemiluminescent immunoassay. Performed By: #### 2 4323-8, 3024-7, 92078-1, 3016-3 #### [facility] CLIA [id number] [address] [place] [address] [place] CBC panel Auto (Bld)on 12-01 Erythrocyte distribution width (RBC) [Ratio] 12.5 % Normal 11.5-15.0 [facility] Comment on above: Order Comment: Johana jarvis Type: BLOOD SPECIMEN Ordering Facility: [facility] Address: [address] [place] [address] Performed By: #### 5 5454-3 #### [facility] CLIA [id number] [address] [place] [address] [place] Hematocrit (Bld) [Volume fraction] 37.8 % Normal 36.0-46.0 [facility] Comment on above: Order Comment: Johana jarvis Type: BLOOD SPECIMEN Ordering Facility: [facility] Address: [address] [place] [address] Performed By: #### 5 5454-3 #### [facility] CLIA [id number] [address] [place] [address] [place] Hemoglobin (Bld) [Mass/Vol] 12.1 g/dL Normal 11.5-15.5 [facility] Comment on above: Order Comment: Speci men Type: BLOOD SPECIMEN Ordering Facility: [facility] Address: [address] [place] [address] Performed By: #### 5 5454-3 #### [facility] CLIA [id number] [address] [place] [address] [place] MCH (RBC) [Entitic mass] 31.2 pg Normal 26.0-34.0 [facility] Comment on above: Order Comment: Speci men Type: BLOOD SPECIMEN Ordering Facility: [facility] Address: [address] [place] [address] Performed By: #### 5 5454-3 #### [facility] CLIA [id number] [address] [place] [address] [place] MCHC (RBC) [Mass/Vol] 32.0 g/dL Normal 30.5-36.0 [facility] Comment on above: Order Comment: Speci men Type: BLOOD SPECIMEN Ordering Facility: [facility] Address: [address] [place] [address] Performed By: #### 5 5454-3 #### [facility] CLIA [id number] [address] [place] [address] [place] MCV (RBC) [Entitic vol] 97.4 fL Normal 80.0-100.0 [facility] Comment on above: Order Comment: Speci men Type: BLOOD SPECIMEN Ordering Facility: [facility] Address: [address] [place] [address] Performed By: #### 5 5454-3 #### [facility] CLIA [id number] [address] [place] [address] [place] Nucleated RBC (Bld) [#/Vol] 10*3/uL Normal <0.01 [facility] Comment on above: Order Comment: Speci men Type: BLOOD SPECIMEN Ordering Facility: [facility] Address: [address] [place] [address] Performed By: #### 5 5454-3 #### [facility] CLIA [id number] [address] [place] [address] [place] Platelet mean volume (Bld) [Entitic vol] 12.3 fL Normal 9.0-12.7 [facility] Comment on above: Order Comment: Speci men Type: BLOOD SPECIMEN Ordering Facility: [facility] Address: [address] [place] [address] Performed By: #### 5 5454-3 #### [facility] CLIA [id number] [address] [place] [address] [place] Platelets (Bld) [#/Vol] 160 10*3/uL Normal 150-400 [facility] Comment on above: Order Comment: Speci men Type: BLOOD SPECIMEN Ordering Facility: [facility] Address: [address] [place] [address] Performed By: #### 5 5454-3 #### [facility] CLIA [id number] [address] [place] [address] [place] RBC (Bld) [#/Vol] 3.88 10*6/uL Low 3.90-5.20 [facility] Comment on above: Order Comment: Speci men Type: BLOOD SPECIMEN Ordering Facility: [facility] Address: [address] [place] [address] Performed By: #### 5 5454-3 #### [facility] CLIA [id number] [address] [place] [address] [place] WBC (Bld) [#/Vol] 5.99 10*3/uL Normal 3.70-11.00 [facility] Comment on above: Order Comment: Speci men Type: BLOOD SPECIMEN Ordering Facility: [facility] Address: [address] [place] [address] Performed By: #### 5 5454-3 #### [facility] CLIA [id number] [address] [place] [address] [place] Comprehensive metabolic 2000 panelon 12-01-2024 Albumin [Mass/Vol] 4.0 g/dL Normal 3.9-4.9 [facility] Comment on above: Order Comment: Speci men Type: BLOOD SPECIMEN Ordering Facility: [facility] Address: [address] [place] [address] Performed By: #### 2 4323-8, 3024-7, 39352-0, 3016-3 #### [facility] CLIA [id number] [address] [place] [address] [place] ALP [Catalytic activity/Vol] 67 U/L Normal 34-123 [facility] Comment on above: Order Comment: Speci men Type: BLOOD SPECIMEN Ordering Facility: [facility] Address: [address] [place] [address] Performed By: #### 2 4323-8, 3024-7, 59334-8, 3016-3 #### [facility] CLIA [id number] [address] [place] [address] [place] ALT [Catalytic activity/Vol] 19 U/L Normal 7-38 [facility] Comment on above: Order Comment: Speci men Type: BLOOD SPECIMEN Ordering Facility: [facility] Address: [address] [place] [address] Performed By: #### 2 4323-8, 3024-7, 30174-0, 3016-3 #### [facility] CLIA [id number] [address] [place], [place] [address] [place] Anion gap [Moles/Vol] 16 mmol/L High 8-15 [facility] Comment on above: Order Comment: Speci men Type: BLOOD SPECIMEN Ordering Facility: [facility] Address: [address] [place] [address] Performed By: #### 2 4323-8, 3024-7, 67618-6, 3016-3 #### [facility] CLIA [id number] [address] [place] [address] [place] AST [Catalytic activity/Vol] 31 U/L Normal 13-35 [facility] Comment on above: Order Comment: Speci men Type: BLOOD SPECIMEN Ordering Facility: [facility] Address: [address] [place] [address] Performed By: #### 2 4323-8, 3024-7, 51423-6, 3016-3 #### [facility] CLIA [id number] [address] [place], [place] [address] [place] Bilirubin [Mass/Vol] 0.4 mg/dL Normal 0.2-1.3 [facility] Comment on above: Order Comment: Speci men Type: BLOOD SPECIMEN Ordering Facility: [facility] Address: [address] [place] [address] Performed By: #### 2 4323-8, 3024-7, 17530-6, 6-3 #### [facility] CLIA [id number] [address] [place], [place] [address] [place] Calcium [Mass/Vol] 10.0 mg/dL Normal 8.5-10.2 [facility] Comment on above: Order Comment: Speci men Type: BLOOD SPECIMEN Ordering Facility: [facility] Address: [address] [place] [address] Performed By: #### 2 4323-8, 3024-7, 42694-6, 6-3 #### [facility] CLIA [id number] [address] [place] [address] [place] Chloride [Moles/Vol] 108 mmol/L High 98-107 [facility] Comment on above: Order Comment: Speci men Type: BLOOD SPECIMEN Ordering Facility: [facility] Address: [address] [place] [address] Performed By: #### 2 4323-8, 3024-7, 60894-2, 3016-3 #### [facility] CLIA [id number] [address] [place] [address] [place] CO2 [Moles/Vol] 20 mmol/L Low 22-30 [facility] Comment on above: Order Comment: Speci men Type: BLOOD SPECIMEN Ordering Facility: [facility] Address: [address] [place] [address] Performed By: #### 2 4323-8, 3024-7, 28639-5, 6-3 #### [facility] CLIA [id number] [address] [place] [address] [place] Creatinine [Mass/Vol] 1.11 mg/dL High 0.58-0.96 [facility] Comment on above: Order Comment: Speci men Type: BLOOD SPECIMEN Ordering Facility: [facility] Address: [address] [place] [address] Performed By: #### 2 4323-8, 3024-7, 42901-2, 6-3 #### [facility] CLIA [id number] [address] [place] [address] [place] Creatinine and Glomerular filtration rate.predicted panel (S/P/Bld) 53 mL/min/1.73m??? Low >=60 [facility] Comment on above: Order Comment: Speci men Type: BLOOD SPECIMEN Ordering Facility: [facility] Address: [address] [place] [address] Result Comment: Elena mated Glomerular Filtration Rate (eGFR) is calculated using the 2020 CKD-EPI creatinine equation. This equation utilizes serum creatinine, sex, and age as parameters. The creatinine assay has traceable calibration to isotope dilution-mass spectrometry. Refer to KDIGO guidelines for clinical interpretation. In patients with unstable renal function, e.g. those with acute kidney injury, the eGFR may not accurately reflect actual GFR. Performed By: #### 2 4323-8, 3024-7, 20180-5, 6-3 #### [facility] CLIA [id number] [address] [place], [place] [id number] [place] Glucose [Mass/Vol] 79 mg/dL Normal 74-99 [facility] Comment on above: Order Comment: Johana jarvis Type: BLOOD SPECIMEN Ordering Facility: [facility] Address: [address] [place] [address] Result Comment: The [place] Diabetes Association (ADA) provides guidance for cutoff values for fasting glucose and random glucose. The ADA defines fasting as no caloric intake for at least 8 hours. Fasting plasma glucose results between 100 to 125 mg/dL indicate increased risk for diabetes (prediabetes). Fasting plasma glucose results greater than or equal to 126 mg/dL meet the criteria for diagnosis of diabetes. In the absence of unequivocal hyperglycemia, results should be confirmed by repeat testing. In a patient with classic symptoms of hyperglycemia or hyperglycemic crisis, random plasma glucose results greater than or equal to 200 mg/dL meet the criteria for diagnosis of diabetes. Reference: Standards of Medical Care in Diabetes 2016, [place] [employer]. Diabetes Care. 2016.39(Suppl 1). Performed By: #### 2 4323-8, 3024-7, 56094-3, 3016-3 #### [facility] CLIA [id number] [address] [place] [address] [place] Potassium [Moles/Vol] 4.3 mmol/L Normal 3.7-5.1 [facility] Comment on above: Order Comment: Johana jarvis Type: BLOOD SPECIMEN Ordering Facility: [facility] Address: [address] [place] [address] Performed By: #### 2 4323-8, 3024-7, 78169-4, 3016-3 #### [facility] CLIA [id number] [address] [place] [address] [place] Protein [Mass/Vol] 6.6 g/dL Normal 6.3-8.0 [facility] Comment on above: Order Comment: Johana jarvis Type: BLOOD SPECIMEN Ordering Facility: [facility] Address: [address] [place] [address] Performed By: #### 2 4323-8, 3024-7, 23998-6, 3016-3 #### [facility] CLIA [id number] [address] [place] [address] [place] Sodium [Moles/Vol] 144 mmol/L Normal 136-144 [facility] Comment on above: Order Comment: Speci men Type: BLOOD SPECIMEN Ordering Facility: [facility] Address: [address] [place] [address] Performed By: #### 2 4323-8, 3024-7, 76855-5, 6-3 #### [facility] CLIA [id number] [address] [place] [address] [place] Urea nitrogen [Mass/Vol] 51 mg/dL High 7-21 [facility] Comment on above: Order Comment: Speci men Type: BLOOD SPECIMEN Ordering Facility: [facility] Address: [address] [place] [address] Performed By: #### 2 4323-8, 3024-7, 71245-4, 6-3 #### [facility] CLIA [id number] [address] [place] [address] [place] HbA1c (Bld)on 12-01-2024 Average glucose Estimated from glycated hemoglobin (Bld) [Mass/Vol] 126 mg/dL Normal [facility] Comment on above: Order Comment: Speci men Type: BLOOD SPECIMEN Ordering Facility: [facility] Address: [address] [place] [address] Result Comment: eAG: (Estimated average glucose) is a calculated value from HgbA1c and is employment program representative of the average blood glucose level in the last 2-3 month period. Performed By: #### 5 5454-3 #### [facility] CLIA [id number] [address] [place] [address] [place] HbA1c (Bld) [Mass fraction] 6.0 % High 4.3-5.6 [facility] Comment on above: Order Comment: Speci men Type: BLOOD SPECIMEN Ordering Facility: [facility] Address: [address] [place] [address] Result Comment: [place] Diabetes Association guidelines indicate that patients with HgbA1c in the range 5.7-6.4% are at increased risk for development of diabetes, and intervention by lifestyle modification may be beneficial. HgbA1c greater or equal to 6.5% is considered diagnostic of diabetes. Performed By: #### 5 5454-3 #### [facility] CLIA [id number] [address] [place] [address] [place] Lipid 1996 panelon 5 Cholesterol [Mass/Vol] 138 mg/dL Normal <200 [facility] Comment on above: Order Comment: Johana jarvis Type: BLOOD SPECIMEN Ordering Facility: [facility] Address: [address] [place] [address] Result Comment: <200 mg/dL, Desirable 200-239 mg/dL, Borderline high >239 mg/dL, High Performed By: #### 2 4323-8, 3024-7, 06110-7, 3016-3 #### [facility] CLIA [id number] [address] [place] [address] [place] Cholesterol in HDL [Mass/Vol] 44 mg/dL Normal >39 [facility] Comment on above: Order Comment: Johana jarvis Type: BLOOD SPECIMEN Ordering Facility: [facility] Address: [address] [place] [address] Result Comment: 40-5 9 mg/dL, Acceptable >59 mg/dL, High: Negative risk factor for coronary heart disease <40 mg/dL, Low: Positive risk factor for coronary heart disease Performed By: #### 2 4323-8, 3024-7, 14898-6, 3016-3 #### [facility] CLIA [id number] [address] [place] [address] [place] Cholesterol in LDL [Mass/Vol] 64 mg/dL Normal <100 [facility] Comment on above: Order Comment: Johana jarvis Type: BLOOD SPECIMEN Ordering Facility: [facility] Address: [address] [place] [address] Result Comment: <100 mg/dL, Optimal 100-129 mg/dL, Near optimal/above optimal 130-159 mg/dL, Borderline high 160-189 mg/dL, High >189 mg/dL, Very high Secondary prevention optimal LDL Cholesterol levels are recommended to be < 70 mg/dL Performed By: #### 2 4323-8, 3024-7, 93523-0, 3016-3 #### [facility] CLIA [id number] [facility] [place] [address] [place] Cholesterol in LDL/Cholesterol in HDL [Mass ratio] 1.45 {ratio} Normal <2.54 [facility] Comment on above: Order Comment: Johana men Type: BLOOD SPECIMEN Ordering Facility: [facility] Address: [address] [place] [address] Result Comment: Refe rence: 1. National Cholesterol Education Program ATP III Guideline At-A-Glance Quick Desk Reference: National Heart, Lung, and Blood Ideal. National Institutes of Health. 2001: NIH Publication No. 01-3305. 2. An International Atherosclerosis Society position paper: global recommendations for the management of dyslipidemia: executive summary, Atherosclerosis. 2014: 232(2):410-413. Performed By: #### 2 4323-8, 3024-7, 75935-0, 6-3 #### [facility] CLIA [id number] [address] [place], [place] [address] [place] [address] [place] Cholesterol in VLDL [Mass/Vol] 30 mg/dL High <30 [facility] Comment on above: Order Comment: Elizabethi men Type: BLOOD SPECIMEN Ordering Facility: [facility] Address: [address] [place] [address] Performed By: #### 2 4323-8, 3024-7, 63422-8, 3016-3 #### [facility] CLIA [id number] [address] [facility] [place] [address] [place] Cholesterol non HDL [Mass/Vol] 94 mg/dL Normal <130 [facility] Comment on above: Order Comment: Elizabethi men Type: BLOOD SPECIMEN Ordering Facility: [facility] Address: [address] [place] [address] Result Comment: <130 mg/dL, Optimal 130-159 mg/dL, Near optimal/above optimal 160-189 mg/dL, Borderline high 190-219 mg/dL, High >219 mg/dL, Very high Secondary prevention optimal non HDL Cholesterol levels are recommended to be <100 mg/dL Performed By: #### 2 4323-8, 3024-7, 45854-4, 3016-3 #### [facility] CLIA [id number] [address] [place] [address] [place] Cholesterol.total/Chol esterol in HDL [Mass ratio] 3.14 {ratio} Normal <5.10 [facility] Comment on above: Order Comment: Speci men Type: BLOOD SPECIMEN Ordering Facility: [facility] Address: [address] [place] [address] Performed By: #### 2 4323-8, 3024-7, 09993-9, 6-3 #### [facility] CLIA [id number] [address] [place] [address] [place] FASTING TIME 14 hrs Normal [facility] Comment on above: Order Comment: Speci men Type: BLOOD SPECIMEN Ordering Facility: [facility] Address: [address] [place] [address] Performed By: #### 2 4323-8, 3024-7, 18009-6, 6-3 #### [facility] CLIA [id number] [address] [place], [place] [address] [place] Triglyceride [Mass/Vol] 151 mg/dL High <150 [facility] Comment on above: Order Comment: Speci men Type: BLOOD SPECIMEN Ordering Facility: [facility] Address: [address] [place] [address] Result Comment: <150 mg/dL, Normal 150-199 mg/dL, Borderline high 200-499 mg/dL, High >499 mg/dL, Very high Performed By: #### 2 4323-8, 3024-7, 52972-3, 3016-3 #### [facility] CLIA [id number] [address] [place] [address] [place] T4 Free SerPl-mCncon 025 Free T4 [Mass/Vol] 2.0 ng/dL High 0.9-1.7 [facility] Comment on above: Order Comment: Speci men Type: BLOOD SPECIMEN Ordering Facility: [facility] Address: [address] [place] [address] Performed By: #### 2 4323-8, 4-7, 68000-8, 6-3 #### [facility] CLIA [id number] [address] [place] [address] [place] TSH SerPl-aCncon 12-01-2024 TSH Qn 0.005 m[IU]/L Low 0.270-4.200 [facility] Comment on above: Order Comment: Speci men Type: BLOOD SPECIMEN Ordering Facility: [facility] Address: [address] [place] [address] Performed By: #### 2 4323-8, 3024-7, 00979-2, 6-3 #### [facility] CLIA [id number] [address] [place] [address] [place] Vit B12 SerPl-mCncon 025 Cobalamin (Vitamin B12) [Mass/Vol] 1268 pg/mL High 232-1245 [facility] Comment on above: Order Comment: Speci men Type: BLOOD SPECIMEN Ordering Facility: [facility] Address: [address] [place] [address] Performed By: #### 2 4323-8, 3023-7, 66504-6, 6-3 #### [facility] CLIA [id number] [address] [place] [address] [place] CNPNon 09-10-2024 CNPN Telephone ([facility]) -------- GELY NEWMAN ([id number]) 1950 F Date Time Provider Department 09/10/24 RISHI VASQUEZ [facility] During your visit today, we recorded the following information about you: Clemencia Chapman RN 09/10/2024 2:59 PM Signed Patient calls to let provider know that she was to see Dr. Franco with pain management today and he was recommending changing gabapentin to Lyrica and considering Cymbalta or tramadol. Patient doesn't want him to prescribe anything without first checking with provider and what provider would recommend for her mid left buttocks pain. Patient reports that Dr. Franco might also reach out to provider. Requests call back at [phone] with provider response. GORGE Bo Jordan L, DO 09/13/2024 12:25 PM Signed Okay with these considerations by specialist DO Allan Ernst Rilee, MA 09/15/2024 10:30 AM Signed Call to pt and notified her of response below from Provider. Pt verbalized understanding. Meagan Martinez MA Allergies As of Date: 09/10/2024 Noted Allergy Reaction SULFA (SULFONAMIDE ANTIBIOTICS) 01/13/2013 16 - Unknown Comments: childhood Date Reviewed: 06/04/2024 Reviewed by: Nasim López LPN - Fully Assessed Reason for Visit: Patient Question [8200] Prescriptions as of 09/15/2024 - gabapentin (NEURONTIN) 600 mg tablet Take 1 tablet by mouth three times a day for 120 days. - glimepiride (AMARYL) 4 mg tablet Take 1 tablet by mouth daily with breakfast. - metFORMIN (GLUCOPHAGE) 500 mg tablet Take 1 tablet by mouth two times a day with meals. - lisinopril (ZESTRIL) 20 mg tablet Take 1 tablet by mouth once daily. - simvastatin (ZOCOR) 40 mg tablet Take 1 tablet by mouth daily at bedtime. - hydroCHLOROthiazide 25 mg tablet Take 1 tablet by mouth once daily. - estradiol (ESTRACE) 0.01 % (0.1 mg/gram) vaginal cream Use 1 g vaginally two times a week. - Blood Pressure Test Kit-Medium kit 1 Device once daily. Dx: Essential hypertension - clopidogrel (PLAVIX) 75 mg tablet Take 75 mg by mouth once daily. - ferrous sulfate 325 mg (65 mg iron) tablet Take 325 mg by mouth daily with breakfast. - Cholecalciferol, Vitamin D3, 25 mcg (1,000 unit) cap Take 1,000 Units by mouth once daily. - SACCHAROMYCES BOULARDII (PROBIOTIC, S.BOULARDII, ORAL) Take 1 capsule by mouth once daily. - Cranberry Extract 300 mg tab Take by mouth. - acetaminophen (TYLENOL) 325 mg tablet Take 650 mg by mouth every 6 hours as needed. - ascorbic acid, vitamin C, (VITAMIN C) 500 mg tablet Take 1 tablet by mouth once daily. - Ogmbsxlj-Fhjv-Dbb-Folic Acid 18-0.4 mg tab Take 1 tablet by mouth once daily. - metoprolol succinate ER (TOPROL XL) 50 mg 24 hr tablet Take 1 tablet by mouth once daily. - omega-3 fatty acids 1,000 mg cap Take 1 capsule by mouth once daily. - Aspirin 81 mg Tab Take 1 tablet by mouth once daily. Take with food. Problem List As Of Date 09/10/2024 Noted Resolved Peripheral vascular occlusive disease [I73.9] 01/13/2013 Diabetes mellitus type 2 with peripheral artery*01/28/2013 Hypertension [I10] 01/28/2013 Overweight (BMI 25.0-29.9) [E66.3] 05/01/2013 Dyslipidemia (high LDL; low HDL) [E78.5] 07/01/2013 Abnormal nuclear stress test [R94.39] 12/09/2013 Carotid atherosclerosis, bilateral [I65.23] 01/21/2015 Multinodular thyroid [E04.2] 02/26/2015 Essential hypertension [I10] 11/30/2015 10/24/2016 Occult blood in stools [R19.5] 10/05/2016 Coronary artery disease [I25.10] 10/24/2016 CKD stage G3b/A1, GFR 30-44 and albumin creatin*01/29/2017 Chronic osteomyelitis with draining sinus, left*01/29/2017 06/04/2024 Situational depression [F43.21] 01/29/2017 Benign paroxysmal positional vertigo [H81.10] 11/14/2017 11/30/2021 BPPV (benign paroxysmal positional vertigo), un*02/25/2018 Anemia [D64.9] 02/25/2018 Vitamin D deficiency [E55.9] 08/28/2018 Essential hypertension [I10] 08/28/2018 Infected sebaceous cyst [L72.3, L08.9] 02/26/2019 Coronary artery disease involving [place] heart *05/28/2019 Abnormal urine odor [R82.90] 05/28/2019 Stage 3 chronic kidney disease (HCC) [N18.30] 12/03/2019 Fatigue [R53.83] 12/03/2019 Arthritis, multiple joint involvement [M12.9] 05/31/2021 Recurrent UTI (urinary tract infection) [N39.0] 05/31/2021 Urgency incontinence [N39.41] 12/02/2021 Biceps rupture, proximal, left, initial encount*12/05/2022 Dizziness [R42] 12/05/2022 Chronic kidney disease, stage 3a (HCC) [N18.31] 12/05/2022 Chronic bilateral low back pain with bilateral *12/05/2023 Multiple thyroid nodules [E04.2] 12/05/2023 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*06/04/2024 Encounter Status:Closed by MEAGAN MARTINEZ on 09/15/24 [facility] GELY NEWMAN ([id number]) 1950 F Date Time Provider Department 08/18/24 [facility] During your visit today, we recorded the following information about you: Meagan Martinez MA 08/18/2024 8:48 AM Signed Pt wrote into the office via [employer] on 08/16/24 with questions regarding medications. Please review message below and advise. Meagan Martinez MA Pt message: MANY YEARS AGO, 2013 TO BE EXACT, YOU PUT ME ON OMEGA 3 FROM [facility], 500 Mg. CANNOT FIND IT ANYWHERE. ALL I AM FINDING IS 1000Mg, 1200Mg, 1500Mg. AND HIGHER. DIDN'T KNOW WHAT TO BUY. WHAT WOULD YOU LIKE ME TO TAKE NOW. THANK YOU FOR YOUR TIME, WILL AWAIT YOUR ANSWER. HAVE A WONDERFUL WEEK. THE PAIN INJECTION WENT WELL AND HAS HELPED. Jesenia Han PA-C 08/19/2024 1:36 PM Signed Please let patient know that she can take Fish Oil 1000 mg. Jesenia Mcgee PA-C 08/19/2024 Leatha Long LPN 08/19/2024 2:29 PM Signed Patient notified via voice mail message. Leatha Long LPN Allergies As of Date: 08/18/2024 Noted Allergy Reaction SULFA (SULFONAMIDE ANTIBIOTICS) 01/13/2013 18 - Unknown Comments: childhood Date Reviewed: 06/04/2024 Reviewed by: Nasim López LPN - Fully Assessed Reason for Visit: Patient Question [7049] Cmt: Fish oil - [place] 3 Prescriptions as of 08/19/2024 - gabapentin (NEURONTIN) 600 mg tablet Take 1 tablet by mouth three times a day for 120 days. - glimepiride (AMARYL) 4 mg tablet Take 1 tablet by mouth daily with breakfast. - metFORMIN (GLUCOPHAGE) 500 mg tablet Take 1 tablet by mouth two times a day with meals. - lisinopril (ZESTRIL) 20 mg tablet Take 1 tablet by mouth once daily. - simvastatin (ZOCOR) 40 mg tablet Take 1 tablet by mouth daily at bedtime. - hydroCHLOROthiazide 25 mg tablet Take 1 tablet by mouth once daily. - estradiol (ESTRACE) 0.01 % (0.1 mg/gram) vaginal cream Use 1 g vaginally two times a week. - Blood Pressure Test Kit-Medium kit 1 Device once daily. Dx: Essential hypertension - clopidogrel (PLAVIX) 75 mg tablet Take 75 mg by mouth once daily. - ferrous sulfate 325 mg (65 mg iron) tablet Take 325 mg by mouth daily with breakfast. - Cholecalciferol, Vitamin D3, 25 mcg (1,000 unit) cap Take 1,000 Units by mouth once daily. - SACCHAROMYCES BOULARDII (PROBIOTIC, S.BOULARDII, ORAL) Take 1 capsule by mouth once daily. - Cranberry Extract 300 mg tab Take by mouth. - acetaminophen (TYLENOL) 325 mg tablet Take 650 mg by mouth every 6 hours as needed. - ascorbic acid, vitamin C, (VITAMIN C) 500 mg tablet Take 1 tablet by mouth once daily. - Rbswfnlv-Yxoc-Yed-Folic Acid 18-0.4 mg tab Take 1 tablet by mouth once daily. - metoprolol succinate ER (TOPROL XL) 50 mg 24 hr tablet Take 1 tablet by mouth once daily. - omega-3 fatty acids 1,000 mg cap Take 1 capsule by mouth once daily. - Aspirin 81 mg Tab Take 1 tablet by mouth once daily. Take with food. Problem List As Of Date 08/18/2024 Noted Resolved Peripheral vascular occlusive disease [I73.9] 01/13/2013 Diabetes mellitus type 2 with peripheral artery*01/28/2013 Hypertension [I10] 01/28/2013 Overweight (BMI 25.0-29.9) [E66.3] 05/01/2013 Dyslipidemia (high LDL; low HDL) [E78.5] 07/01/2013 Abnormal nuclear stress test [R94.39] 12/09/2013 Carotid atherosclerosis, bilateral [I65.23] 01/21/2015 Multinodular thyroid [E04.2] 02/26/2015 Essential hypertension [I10] 11/30/2015 10/24/2016 Occult blood in stools [R19.5] 10/05/2016 Coronary artery disease [I25.10] 10/24/2016 CKD stage G3b/A1, GFR 30-44 and albumin creatin*01/29/2017 Chronic osteomyelitis with draining sinus, left*01/29/2017 06/04/2024 Situational depression [F43.21] 01/29/2017 Benign paroxysmal positional vertigo [H81.10] 11/14/2017 11/30/2021 BPPV (benign paroxysmal positional vertigo), un*02/25/2018 Anemia [D64.9] 02/25/2018 Vitamin D deficiency [E55.9] 08/28/2018 Essential hypertension [I10] 08/28/2018 Infected sebaceous cyst [L72.3, L08.9] 02/26/2019 Coronary artery disease involving [place] heart *05/28/2019 Abnormal urine odor [R82.90] 05/28/2019 Stage 3 chronic kidney disease (HCC) [N18.30] 12/03/2019 Fatigue [R53.83] 12/03/2019 Arthritis, multiple joint involvement [M12.9] 05/31/2021 Recurrent UTI (urinary tract infection) [N39.0] 05/31/2021 Urgency incontinence [N39.41] 12/02/2021 Biceps rupture, proximal, left, initial encount*12/05/2022 Dizziness [R42] 12/05/2022 Chronic kidney disease, stage 3a (HCC) [N18.31] 12/05/2022 Chronic bilateral low back pain with bilateral *12/05/2023 Multiple thyroid nodules [E04.2] 12/05/2023 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*06/04/2024 Encounter Status:Closed by LEATHA LONG on 08/19/24 [facility] -------- GELY NEWMAN ([id number]) 1950 F Date Time Provider Department 08/08/24 [facility] During your visit today, we recorded the following information about you: Hina Lomeli, GORGE 08/08/2024 8:25 AM Signed Patient calls and states that she saw pain management yesterday. Pain management is wanting her to get a back injection next Sunday. Pain management doctor was asking if she has kidney issues. Patient asking if PCP thinks that getting back injection is ok to do with her health history? Patient states that reply can be sent tm my chart message. Please review and advise, GORGE Roy Rilee, MA 08/11/2024 3:45 PM Signed Pt wrote this message in addition to TE from 08/08/24. Please review and advise. Messages are fairly similar. Meagan Martinez MA Pt message: DR. VASQUEZ, DR. FRANCO WANTS ME TO HAVE A PAIN INJECTION ON SUNDAY THE . HE WAS ASKING ME IF I HAVE ISSUES WITH MY KIDNEYS. THAT SCARES ME A LITTLE.. I REALLY DON'T WANT TO DO IT UNLESS YOU SIGN OFF ON IT. THE NAME OF THE MEDICATION IS ISCHROLBARSA. THE INSURENCE COMPANY SAID IT IS A STEROID. WHAT DO YOU THINK. I AM GOING TO CALL AND CANCEL THE APPOINTMENT FOR SUNDAY AND RESCHEDULE FOR ANOTHER DAY AND HOPE THAT I HEAR FROM YOU. THANK YOU FOR YOUR TIME AND UNDERSTANDING ON THE ISSUE. WILL AWAIT YOUR REPLY Rishi Hernández DO 08/12/2024 4:54 PM Signed Patient has some chronic kidney disease stage 3, which is from her diabetes. She needs to make sure that the specialist doesn't think this will be a concern. Her GFR is 48 DO Zeynep Ernst Susan LPN 08/12/2024 4:58 PM Signed Pt. informed via My Chart Allergies As of Date: 08/08/2024 Noted Allergy Reaction SULFA (SULFONAMIDE ANTIBIOTICS) 01/13/2013 18 - Unknown Comments: childhood Date Reviewed: 06/04/2024 Reviewed by: Nasim López LPN - Fully Assessed Reason for Visit: Patient Update [1234] Prescriptions as of 08/12/2024 - gabapentin (NEURONTIN) 600 mg tablet Take 1 tablet by mouth three times a day for 120 days. - glimepiride (AMARYL) 4 mg tablet Take 1 tablet by mouth daily with breakfast. - metFORMIN (GLUCOPHAGE) 500 mg tablet Take 1 tablet by mouth two times a day with meals. - lisinopril (ZESTRIL) 20 mg tablet Take 1 tablet by mouth once daily. - simvastatin (ZOCOR) 40 mg tablet Take 1 tablet by mouth daily at bedtime. - hydroCHLOROthiazide 25 mg tablet Take 1 tablet by mouth once daily. - estradiol (ESTRACE) 0.01 % (0.1 mg/gram) vaginal cream Use 1 g vaginally two times a week. - Blood Pressure Test Kit-Medium kit 1 Device once daily. Dx: Essential hypertension - clopidogrel (PLAVIX) 75 mg tablet Take 75 mg by mouth once daily. - ferrous sulfate 325 mg (65 mg iron) tablet Take 325 mg by mouth daily with breakfast. - Cholecalciferol, Vitamin D3, 25 mcg (1,000 unit) cap Take 1,000 Units by mouth once daily. - SACCHAROMYCES BOULARDII (PROBIOTIC, S.BOULARDII, ORAL) Take 1 capsule by mouth once daily. - Cranberry Extract 300 mg tab Take by mouth. - acetaminophen (TYLENOL) 325 mg tablet Take 650 mg by mouth every 6 hours as needed. - ascorbic acid, vitamin C, (VITAMIN C) 500 mg tablet Take 1 tablet by mouth once daily. - Anpggonc-Hlot-Tcc-Folic Acid 18-0.4 mg tab Take 1 tablet by mouth once daily. - metoprolol succinate ER (TOPROL XL) 50 mg 24 hr tablet Take 1 tablet by mouth once daily. - omega-3 fatty acids 1,000 mg cap Take 1 capsule by mouth once daily. - Aspirin 81 mg Tab Take 1 tablet by mouth once daily. Take with food. Problem List As Of Date 08/08/2024 Noted Resolved Peripheral vascular occlusive disease [I73.9] 01/13/2013 Diabetes mellitus type 2 with peripheral artery*01/28/2013 Hypertension [I10] 01/28/2013 Overweight (BMI 25.0-29.9) [E66.3] 05/01/2013 Dyslipidemia (high LDL; low HDL) [E78.5] 07/01/2013 Abnormal nuclear stress test [R94.39] 12/09/2013 Carotid atherosclerosis, bilateral [I65.23] 01/21/2015 Multinodular thyroid [E04.2] 02/26/2015 Essential hypertension [I10] 11/30/2015 10/24/2016 Occult blood in stools [R19.5] 10/05/2016 Coronary artery disease [I25.10] 10/24/2016 CKD stage G3b/A1, GFR 30-44 and albumin creatin*01/29/2017 Chronic osteomyelitis with draining sinus, left*01/29/2017 06/04/2024 Situational depression [F43.21] 01/29/2017 Benign paroxysmal positional vertigo [H81.10] 11/14/2017 11/30/2021 BPPV (benign paroxysmal positional vertigo), un*02/25/2018 Anemia [D64.9] 02/25/2018 Vitamin D deficiency [E55.9] 08/28/2018 Essential hypertension [I10] 08/28/2018 Infected sebaceous cyst [L72.3, L08.9] 02/26/2019 Coronary artery disease involving [place] heart *05/28/2019 Abnormal urine odor [R82.90] 05/28/2019 Stage 3 chronic kidney disease (HCC) [N18.30] 12/03/2019 Fatigue [R53.83] more content not included)... Normal [facility] Pelvis (Routine)on 4 Pelvis (Routine) Normal [facility] Shoulder min 2 Viewson 06-19 Shoulder min 2 Views Normal [facility] CNPNon 06-13-2024 CNPN Telephone (FAMPWS) -------- GELY NEWMAN ([id number]) 1950 F Date Time Provider Department 06/13/24 RISHI VASQUEZ FAMPWS During your visit today, we recorded the following information about you: Nasim López LPN 06/13/2024 11:19 AM Signed Needs referral faxed to [facility] for Pain Management. This has been faxed. Allergies As of Date: 06/13/2024 Noted Allergy Reaction SULFA (SULFONAMIDE ANTIBIOTICS) 01/13/2013 16 - Unknown Comments: childhood Date Reviewed: 06/04/2024 Reviewed by: Nasim López LPN - Fully Assessed Prescriptions as of 06/13/2024 - gabapentin (NEURONTIN) 600 mg tablet Take 1 tablet by mouth three times a day for 120 days. - glimepiride (AMARYL) 4 mg tablet Take 1 tablet by mouth daily with breakfast. - metFORMIN (GLUCOPHAGE) 500 mg tablet Take 1 tablet by mouth two times a day with meals. - lisinopril (ZESTRIL) 20 mg tablet Take 1 tablet by mouth once daily. - simvastatin (ZOCOR) 40 mg tablet Take 1 tablet by mouth daily at bedtime. - hydroCHLOROthiazide 25 mg tablet Take 1 tablet by mouth once daily. - estradiol (ESTRACE) 0.01 % (0.1 mg/gram) vaginal cream Use 1 g vaginally two times a week. - Blood Pressure Test Kit-Medium kit 1 Device once daily. Dx: Essential hypertension - clopidogrel (PLAVIX) 75 mg tablet Take 75 mg by mouth once daily. - ferrous sulfate 325 mg (65 mg iron) tablet Take 325 mg by mouth daily with breakfast. - Cholecalciferol, Vitamin D3, 25 mcg (1,000 unit) cap Take 1,000 Units by mouth once daily. - SACCHAROMYCES BOULARDII (PROBIOTIC, S.BOULARDII, ORAL) Take 1 capsule by mouth once daily. - Cranberry Extract 300 mg tab Take by mouth. - acetaminophen (TYLENOL) 325 mg tablet Take 650 mg by mouth every 6 hours as needed. - ascorbic acid, vitamin C, (VITAMIN C) 500 mg tablet Take 1 tablet by mouth once daily. - Gqdervrq-Afsm-Pze-Folic Acid 18-0.4 mg tab Take 1 tablet by mouth once daily. - metoprolol succinate ER (TOPROL XL) 50 mg 24 hr tablet Take 1 tablet by mouth once daily. - omega-3 fatty acids 1,000 mg cap Take 1 capsule by mouth once daily. - Aspirin 81 mg Tab Take 1 tablet by mouth once daily. Take with food. Problem List As Of Date 06/13/2024 Noted Resolved Peripheral vascular occlusive disease [I73.9] 01/13/2013 Diabetes mellitus type 2 with peripheral artery*01/28/2013 Hypertension [I10] 01/28/2013 Overweight (BMI 25.0-29.9) [E66.3] 05/01/2013 Dyslipidemia (high LDL; low HDL) [E78.5] 07/01/2013 Abnormal nuclear stress test [R94.39] 12/09/2013 Carotid atherosclerosis, bilateral [I65.23] 01/21/2015 Multinodular thyroid [E04.2] 02/26/2015 Essential hypertension [I10] 11/30/2015 10/24/2016 Occult blood in stools [R19.5] 10/05/2016 Coronary artery disease [I25.10] 10/24/2016 CKD stage G3b/A1, GFR 30-44 and albumin creatin*01/29/2017 Chronic osteomyelitis with draining sinus, left*01/29/2017 06/04/2024 Situational depression [F43.21] 01/29/2017 Benign paroxysmal positional vertigo [H81.10] 11/14/2017 11/30/2021 BPPV (benign paroxysmal positional vertigo), un*02/25/2018 Anemia [D64.9] 02/25/2018 Vitamin D deficiency [E55.9] 08/28/2018 Essential hypertension [I10] 08/28/2018 Infected sebaceous cyst [L72.3, L08.9] 02/26/2019 Coronary artery disease involving [place] heart *05/28/2019 Abnormal urine odor [R82.90] 05/28/2019 Stage 3 chronic kidney disease (HCC) [N18.30] 12/03/2019 Fatigue [R53.83] 12/03/2019 Arthritis, multiple joint involvement [M12.9] 05/31/2021 Recurrent UTI (urinary tract infection) [N39.0] 05/31/2021 Urgency incontinence [N39.41] 12/02/2021 Biceps rupture, proximal, left, initial encount*12/05/2022 Dizziness [R42] 12/05/2022 Chronic kidney disease, stage 3a (HCC) [N18.31] 12/05/2022 Chronic bilateral low back pain with bilateral *12/05/2023 Multiple thyroid nodules [E04.2] 12/05/2023 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*06/04/2024 Encounter Status:Closed by NASIM LÓPEZ LPN on 06/13/24 Normal [facility] CNCOon 06-04-2024 CNCO HNO ID: [id number] Author: COORDINATOR, MAMMOGRAPHY, ? Service: ? Author Type: Physician Type: Letter Filed: 06/04/2024 14:01 Note Text: June 04, 2024 PID: [id number] Gely Newman [address] [place] [address] Dear Ms. Newman, We are pleased to inform you that the results of your recent breast imaging exam on 06/03/2024 are normal. Breast tissue can be either dense or not dense. Dense tissue makes it harder to find breast cancer on a mammogram and also raises the risk of developing breast cancer. Your breast tissue is not dense. Talk to your healthcare provider about breast density, risks for breast cancer, and your individual situation. Early detection of cancer is very important. We also understand recommendations regarding breast cancer screening are controversial. Please discuss with your primary care provider which strategy is best for you and whether a mammogram is right for you. Your imaging studies and report will be kept on file at [facility] as part of your permanent medical record and are available for your continuing care. Thank you for allowing us to help in meeting your health care needs. Sincerely, Dr. Monteiro Interpreting Radiologist [facility] (Normal over 40) Normal [facility] CNOVon 06-04-2024 CNOV Office Visit (FAMPWS ) -------- GELY NEWMAN ([id number]) 1950 F Date Time Provider Department 06/04/24 9:40 AM RISHI VASQUEZ FAMPWS During your visit today, we recorded the following information about you: Temperature Pulse Respiration Blood pressure 96.6 degrees 64/minute 16/minute 154/70 Weight 69.4 kg Rishi Vasquez, DO 06/04/2024 11:15 AM Signed Patient presents with: 6 Month Exam HPI: Gely Newman is a 74 year old female who presents to the office today for review of health conditions. 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 Has been doing PHYSICAL THERAPY, trying to maintain good sitting and laying positioning to help with pain as well. No bowel or bladder changes. Does have tingling in feet. Willing to get pain mgmt opinion for injections etc. Ms. Newman has past history of diabetes. Since our last visit she denies excessive thirst or increased frequency of urination, chest pain or dyspnea , new or unusual visual symptoms, and low sugar/hypoglycemic reactions. Depression- no. Follows a diabetic diet some of the time. She is compliant with medication(s) and is tolerating med(s) without any side effects. She reports checking her glucose on a once a day schedule with sugars in the <150 range. Patient's last HgA1C was Hemoglobin A1C (%) Date Value 05/30/2024 6.2 11/30/2023 7.0 11/28/2021 7.0 05/24/2021 6.7 Hemoglobin A1C (POCT) (%) Date Value 05/31/2022 6.2 ) Last Ophthalmology exam was within the past 12 months Ms. Newman reports history of hyperlipidemia. Current therapy includes simvastatin (Zocor) 40 mg. Denies side effects of muscle weakness or achiness. Her most recent lipid panels are reviewed. Cholesterol, Total (mg/dL) Date Value 05/30/2024 151 11/28/2021 190 HDL Cholesterol (mg/dL) Date Value 05/30/2024 47 11/28/2021 55 LDL Cholesterol (mg/dL) Date Value 05/30/2024 71 11/28/2021 95 Triglyceride (mg/dL) Date Value 05/30/2024 165 11/28/2021 199 Ms. Newman indicates a history of hypertension and states that she is feeling well and denies any symptoms referable to elevated blood pressure. Specifically denies headache, chest pain, palpitations, dyspnea, and peripheral edema. Patient denies any side effects of her medication(s) and is compliant with their regimen. Last 3 Encounter BP Readings: Date: BP: 06/04/2024 154/70 01/15/2024 166/71 12/05/2023 150/80 She watches her diet for sodium, low fat and low cholesterol some of the time. She does not check BP's generally. Gely gets minimal exercise. 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 Ch Frog Shaker, 90% blockage- unable to do stenting Diabetes mellitus type 2 in obese Diabetic feet (HCC) Gangrene (HCC) 2012 RIGHT FOOT Hypertension Mild non proliferative diabetic retinopathy (HCC) 06/11/2013 Both eyes, Dr. Ortiz [facility]-03/25/2020 left mild, right moderate Multiple thyroid nodules last US 01/2015 Peripheral artery disease (HCC) due to Diabetes mellitus, Dr. Kwaku Moscoso Rotator cuff syndrome of left shoulder Dr. Regi Montes [facility] PAST SURGICAL HISTORY Procedure Laterality Date AMPUTATION TOE INTERPHALANGEAL JOINT 01-01-2013 left 5th toe due to diabetes gangrene ARTHROSCOPY KNEE DIAGNOSTIC W/WO SYNOVIAL BX SPX 12/31/13 Arthroscopy, knee lt COLONOSCOPY FLX DX W/COLLJ SPEC WHEN PFRMD 11-21-13 tubular adenomas, repeat in 3 years COLONOSCOPY FLX DX W/COLLJ SPEC WHEN PFRMD 10/25/2016 ESOPHAGOGASTRODUODENOSCO PY TRANSORAL DIAGNOSTIC 10/25/2016 EXC TUMOR SOFT TISS FOREARM AND/WRIST SUBQ 3+CM 09/08/14 Exc. right olecrenon dermal/SC mass FNA WITH IMAGING 03/17/15 U/S FNA bilateral thyroid PAST SURGICAL HISTORY OF Left foot - diabetic PAST SURGICAL HISTORY OF Left 06/2015 TKA PAST SURGICAL HISTORY OF Left 10/2016 excision of bone REVSC OPN/PRG FEM/POP W/ANGIOPLASTY UNI 12-31-12 RIGHT FOOT REVSC OPN/PRQ FEM/POP W/ATHRC/ANGIOP VSL 02-10-13 right leg REVSC OPN/PRQ FEM/POP W/ATHRC/ANGIOP [facility] 04-08-13 ROTATOR CUFF REPAIR 03/11/14 Dr. Regi Thompson [facility] SLCTV CATHJ EA 1ST ORD ABDL PEL/LXTR ART BRNCH 06-07-16 APLL Social History Tobacco Use Smoking status: Former Packs/day: 0.50 Years: 45.00 Additional pack years: 0.00 Total pack years: 22.50 Types: Cigarettes Quit date: 12/20/2012 Years since quittin.4 Smokeless tobacco: Never Substance Use Topics Alcohol use: No Drug use: No FAMILY HISTORY Problem Relation Age of Onset Diabetes Maternal Grandmother Emphysema Mother Osteoporosis Mother Heart Father Stroke Father Allergies: ALLERGIES Allergen React (more content not included)... Normal [facility] 06-04-2024 [facility] Telephone (FAMPWS) -------- TRENTGELY Melinda ([id number]) 1950 F Date Time Provider Department 06/04/24 [facility] During your visit today, we recorded the following information about you: Rishi Vasquez DO 06/04/2024 2:36 PM Signed Please inform patient that her mammogram is normal/negative. She will need routine screening mammogram in 1 year. Thanks BOB Ernst Beth, LPN 06/04/2024 2:50 PM Signed Phoned patient left message to return call and ask to speak to a nurse. Keisha Coronado RN 06/04/2024 3:59 PM Signed Spoke with patient. Given message from provider's office. Patient verbalizes understanding. Keisha Coronado RN Allergies As of Date: 06/04/2024 Noted Allergy Reaction SULFA (SULFONAMIDE ANTIBIOTICS) 01/13/2013 18 - Unknown Comments: childhood Date Reviewed: 06/04/2024 Reviewed by: Nasim López LPN - Fully Assessed Reason for Visit: Results [95] Prescriptions as of 06/04/2024 - gabapentin (NEURONTIN) 600 mg tablet Take 1 tablet by mouth three times a day for 120 days. - glimepiride (AMARYL) 4 mg tablet Take 1 tablet by mouth daily with breakfast. - metFORMIN (GLUCOPHAGE) 500 mg tablet Take 1 tablet by mouth two times a day with meals. - lisinopril (ZESTRIL) 20 mg tablet Take 1 tablet by mouth once daily. - simvastatin (ZOCOR) 40 mg tablet Take 1 tablet by mouth daily at bedtime. - hydroCHLOROthiazide 25 mg tablet Take 1 tablet by mouth once daily. - estradiol (ESTRACE) 0.01 % (0.1 mg/gram) vaginal cream Use 1 g vaginally two times a week. - Blood Pressure Test Kit-Medium kit 1 Device once daily. Dx: Essential hypertension - clopidogrel (PLAVIX) 75 mg tablet Take 75 mg by mouth once daily. - ferrous sulfate 325 mg (65 mg iron) tablet Take 325 mg by mouth daily with breakfast. - Cholecalciferol, Vitamin D3, 25 mcg (1,000 unit) cap Take 1,000 Units by mouth once daily. - SACCHAROMYCES BOULARDII (PROBIOTIC, S.BOULARDII, ORAL) Take 1 capsule by mouth once daily. - Cranberry Extract 300 mg tab Take by mouth. - acetaminophen (TYLENOL) 325 mg tablet Take 650 mg by mouth every 6 hours as needed. - ascorbic acid, vitamin C, (VITAMIN C) 500 mg tablet Take 1 tablet by mouth once daily. - Dnylvcoc-Pogp-Uqt-Folic Acid 18-0.4 mg tab Take 1 tablet by mouth once daily. - metoprolol succinate ER (TOPROL XL) 50 mg 24 hr tablet Take 1 tablet by mouth once daily. - omega-3 fatty acids 1,000 mg cap Take 1 capsule by mouth once daily. - Aspirin 81 mg Tab Take 1 tablet by mouth once daily. Take with food. Problem List As Of Date 06/04/2024 Noted Resolved Peripheral vascular occlusive disease [I73.9] 01/13/2013 Diabetes mellitus type 2 with peripheral artery*01/28/2013 Hypertension [I10] 01/28/2013 Overweight (BMI 25.0-29.9) [E66.3] 05/01/2013 Dyslipidemia (high LDL; low HDL) [E78.5] 07/01/2013 Abnormal nuclear stress test [R94.39] 12/09/2013 Carotid atherosclerosis, bilateral [I65.23] 01/21/2015 Multinodular thyroid [E04.2] 02/26/2015 Essential hypertension [I10] 11/30/2015 10/24/2016 Occult blood in stools [R19.5] 10/05/2016 Coronary artery disease [I25.10] 10/24/2016 CKD stage G3b/A1, GFR 30-44 and albumin creatin*01/29/2017 Chronic osteomyelitis with draining sinus, left*01/29/2017 06/04/2024 Situational depression [F43.21] 01/29/2017 Benign paroxysmal positional vertigo [H81.10] 11/14/2017 11/30/2021 BPPV (benign paroxysmal positional vertigo), un*02/25/2018 Anemia [D64.9] 02/25/2018 Vitamin D deficiency [E55.9] 08/28/2018 Essential hypertension [I10] 08/28/2018 Infected sebaceous cyst [L72.3, L08.9] 02/26/2019 Coronary artery disease involving [place] heart *05/28/2019 Abnormal urine odor [R82.90] 05/28/2019 Stage 3 chronic kidney disease (HCC) [N18.30] 12/03/2019 Fatigue [R53.83] 12/03/2019 Arthritis, multiple joint involvement [M12.9] 05/31/2021 Recurrent UTI (urinary tract infection) [N39.0] 05/31/2021 Urgency incontinence [N39.41] 12/02/2021 Biceps rupture, proximal, left, initial encount*12/05/2022 Dizziness [R42] 12/05/2022 Chronic kidney disease, stage 3a (HCC) [N18.31] 12/05/2022 Chronic bilateral low back pain with bilateral *12/05/2023 Multiple thyroid nodules [E04.2] 12/05/2023 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*06/04/2024 Encounter Status:Closed by KEISHA CORONADO on 06/04/24 Normal [facility] SCREENING W TOMOon 06-03 [facility] SCREENING W BEN * * *Final Report* * * DATE OF EXAM: Jun 03 2024 9:42AM [facility] 0582 - [facility] SCREENING W BEN / PROCEDURE REASON: Encounter for screening mammogram for malignant neoplasm of breast * * * * Physician Interpretation * * * * RESULT: #[id number] - [facility] SCREENING W BEN BILATERAL DIGITAL SCREENING MAMMOGRAM TOMOSYNTHESIS WITH CAD: 06/03/2024 HISTORY: Encounter For Screening Mammogram For Malignant Neoplasm Of Breast / Screening Mammogram-Patient reports NO symptoms. /priors available for comparison /SEE TECH NOTE. RESULT: TECHNIQUE: The study was acquired using full field digital technology and interpreted from soft copy. Digital Breast Tomosynthesis (DBT) images were obtained and used to assist in the interpretation of this examination. Current study was also evaluated with a Computer Aided Detection (CAD). Comparison is made to exams dated: 05/29/2023 mammogram, 07/10/2023 mammogram, and 06/05/2022 mammogram - [facility]. There are scattered areas of fibroglandular density. No significant masses, calcifications, or other findings are seen in either breast. There has been no significant interval change. IMPRESSION: NEGATIVE There is no mammographic evidence of malignancy. A 1 year screening mammogram is recommended. Wil newman/marcelino:06/04/2024 14:01:13 Machine Operator Hop Picker(s): Elizabeth Sandoval [facility] letter sent: Normal over 40 Mammogram BI-RADS: Category 1: Negative Multiple national specialty organizations have released breast cancer screening guidelines for women at average risk for developing breast cancer - guidelines that are based on both evidence and opinion, yet differ on when to start and how often to screen for breast cancer. With representation from Breast Imaging, Internal Medicine, Women's Health, Family Medicine, and Medical/Surgical Oncology, the [facility] has carefully reviewed the data and reached the following consensus: 1) All women should engage in shared decision-making with their providers to decide when to start and how often to screen; 2) All women should have the opportunity to start screening mammography at age 40; 3) For women ages 45-55, we recommend annual screening mammograms; 4) For women ages 55 and over, we support both the transition from an annual to a biennial interval if this aligns more with patient's values and preferences, or continuation with annual screening; 5) All women should discuss with their providers when to stop screening mammograms. Poultry Eviscerator: Marcelino Transcribe Date/Time: Jun 03 2024 9:23A Dictated by: WIL MONTEIRO MD This examination was interpreted and the report reviewed and electronically signed by: WIL MONTEIRO MD on Jun 04 2024 2:01PM EST [id number] Normal [facility] 25([place])D3 [facility] 25-hydroxyvitamin D3 [Mass/Vol] 72.8 ng/mL Normal 31.0-80.0 [facility] Comment on above: Order Comment: Speci men Type: BLOOD SPECIMEN Ordering Facility: [facility] Address: [address] [place] [address] Result Comment: Clas sification of 25 [place] Vitamin D status: Deficiency/Insufficiency: < or = 30 ng/ml. Sufficiency/Optimal Levels: 31-80 ng/mL Toxicity: > 100 ng/mL. Test performed by chemiluminescent immunoassay. Performed By: #### 2 4323-8, 3024-7, 47213-1, 6-3 #### [facility] CLIA [id number] [address] [place] [address] [place] CBC W Auto Differential pane l (Bld)on 05-30-2024 Basophils (Bld) [#/Vol] 0.06 10*3/uL Normal <0.11 [facility] Comment on above: Order Comment: Speci men Type: BLOOD SPECIMEN Ordering Facility: [facility] Address: [address] [place] [address] Performed By: #### 2 4323-8, 302-7, 75056-5, 3015-3 #### [facility] CLIA [id number] [address] [place] [address] [place] Basophils/100 WBC (Bld) 0.8 % Normal [facility] Comment on above: Order Comment: Speci men Type: BLOOD SPECIMEN Ordering Facility: [facility] Address: [address] [place] [address] Performed By: #### 2 4323-8, 3023-7, 77003-2, 6-3 #### [facility] CLIA [id number] [address] [place] [address] [place] Differential cell count method Nom (Bld) Auto Normal [facility] Comment on above: Order Comment: Speci men Type: BLOOD SPECIMEN Ordering Facility: [facility] Address: [address] [place] [address] Performed By: #### 2 4323-8, 3023-7, 20031-2, 3016-3 #### [facility] CLIA [id number] [address] [place] [address] [place] Eosinophils (Bld) [#/Vol] 0.26 10*3/uL Normal <0.46 [facility] Comment on above: Order Comment: Speci men Type: BLOOD SPECIMEN Ordering Facility: [facility] Address: [address] [place] [address] Performed By: #### 2 4323-8, 302-7, 75592-9, 3016-3 #### [facility] CLIA [id number] [address] [place] [address] [place] Eosinophils/100 WBC (Bld) 3.4 % Normal [facility] Comment on above: Order Comment: Speci men Type: BLOOD SPECIMEN Ordering Facility: [facility] Address: [address] [place] [address] Performed By: #### 2 4323-8, 302-7, 48084-2, 3016-3 #### [facility] CLIA [id number] [address] [place] [address] [place] Erythrocyte distribution width (RBC) [Ratio] 12.1 % Normal 11.5-15.0 [facility] Comment on above: Order Comment: Speci men Type: BLOOD SPECIMEN Ordering Facility: [facility] Address: [address] [place] [address] Performed By: #### 2 4323-8, 3023-7, 20660-4, 3016-3 #### [facility] CLIA [id number] [address] [place] [address] [place] Hematocrit (Bld) [Volume fraction] 38.4 % Normal 36.0-46.0 [facility] Comment on above: Order Comment: Speci men Type: BLOOD SPECIMEN Ordering Facility: [facility] Address: [address] [place] [address] Performed By: #### 2 4323-8, 3024-7, 70602-6, 3016-3 #### [facility] CLIA [id number] [address] [place] [address] [place] Hemoglobin (Bld) [Mass/Vol] 12.3 g/dL Normal 11.5-15.5 [facility] Comment on above: Order Comment: Speci men Type: BLOOD SPECIMEN Ordering Facility: [facility] Address: [address] [place] [address] Performed By: #### 2 4323-8, 3024-7, 04328-4, 3016-3 #### [facility] CLIA [id number] [address] [place] [address] [place] Immature granulocytes (Bld) [#/Vol] 10*3/uL Normal <0.10 [facility] Comment on above: Order Comment: Speci men Type: BLOOD SPECIMEN Ordering Facility: [facility] Address: [address] [place] [address] Performed By: #### 2 4323-8, 3024-7, 27698-5, 3016-3 #### [facility] CLIA [id number] [address] [place] [address] [place] Immature granulocytes/100 WBC (Bld) 0.1 % Normal [facility] Comment on above: Order Comment: Speci men Type: BLOOD SPECIMEN Ordering Facility: [facility] Address: [address] [place] [address] Performed By: #### 2 4323-8, 3024-7, 53175-1, 3016-3 #### [facility] CLIA [id number] [address] [place] [address] [place] Lymphocytes (Bld) [#/Vol] 1.71 10*3/uL Normal 1.00-4.00 [facility] Comment on above: Order Comment: Speci men Type: BLOOD SPECIMEN Ordering Facility: [facility] Address: [address] [place] [address] Performed By: #### 2 4323-8, 3024-7, 70152-0, 3016-3 #### [facility] CLIA [id number] [address] [place] [address] [place] Lymphocytes/100 WBC (Bld) 22.6 % Normal [facility] Comment on above: Order Comment: Speci men Type: BLOOD SPECIMEN Ordering Facility: [facility] Address: [address] [place] [address] Performed By: #### 2 4323-8, 3024-7, 39185-2, 3016-3 #### [facility] CLIA [id number] [address] [place] [address] [place] MCH (RBC) [Entitic mass] 31.1 pg Normal 26.0-34.0 [facility] Comment on above: Order Comment: Speci men Type: BLOOD SPECIMEN Ordering Facility: [facility] Address: [address] [place] [address] Performed By: #### 2 4323-8, 3024-7, 71555-2, 3016-3 #### [facility] CLIA [id number] [address] [place] [address] [place] MCHC (RBC) [Mass/Vol] 32.0 g/dL Normal 30.5-36.0 [facility] Comment on above: Order Comment: Speci men Type: BLOOD SPECIMEN Ordering Facility: [facility] Address: [address] [place] [address] Performed By: #### 2 4323-8, 3024-7, 94793-2, 3016-3 #### [facility] CLIA [id number] [address] [place] [address] [place] MCV (RBC) [Entitic vol] 97.0 fL Normal 80.0-100.0 [facility] Comment on above: Order Comment: Speci men Type: BLOOD SPECIMEN Ordering Facility: [facility] Address: [address] [place] [place], [place] [address] Performed By: #### 2 4323-8, 3024-7, 88721-8, 3016-3 #### [facility] CLIA [id number] [address] [place] [address] [place] Monocytes (Bld) [#/Vol] 0.68 10*3/uL Normal <0.87 [facility] Comment on above: Order Comment: Speci men Type: BLOOD SPECIMEN Ordering Facility: [facility] Address: [address] [place] [address] Performed By: #### 2 4323-8, 3024-7, 50356-1, 3016-3 #### [facility] CLIA [id number] [address] [place] [address] [place] Monocytes/100 WBC (Bld) 9.0 % Normal [facility] Comment on above: Order Comment: Speci men Type: BLOOD SPECIMEN Ordering Facility: [facility] Address: [address] [place] [address] Performed By: #### 2 4323-8, 3024-7, 66154-5, 3016-3 #### [facility] CLIA [id number] [address] [place] [address] [place] Neutrophils (Bld) [#/Vol] 4.86 10*3/uL Normal 1.45-7.50 [facility] Comment on above: Order Comment: Speci men Type: BLOOD SPECIMEN Ordering Facility: [facility] Address: [address] [place] [address] Performed By: #### 2 4323-8, 3024-7, 58407-2, 3016-3 #### [facility] CLIA [id number] [address] [place] [address] [place] Neutrophils/100 WBC (Bld) 64.1 % Normal [facility] Comment on above: Order Comment: Speci men Type: BLOOD SPECIMEN Ordering Facility: [facility] Address: [address] [place] [address] Performed By: #### 2 4323-8, 3024-7, 24639-9, 3016-3 #### [facility] CLIA [id number] [address] [place] [address] [place] Nucleated RBC (Bld) [#/Vol] 10*3/uL Normal <0.01 [facility] Comment on above: Order Comment: Speci men Type: BLOOD SPECIMEN Ordering Facility: [facility] Address: [address] [place] [address] Performed By: #### 2 4323-8, 3024-7, 61718-8, 6-3 #### [facility] CLIA [id number] [address] [place] [address] [place] Nucleated RBC/100 WBC (Bld) [Ratio] 0.0 /100 WBC Normal [facility] Comment on above: Order Comment: Speci men Type: BLOOD SPECIMEN Ordering Facility: [facility] Address: [address] [place] [address] Performed By: #### 2 4323-8, 3024-7, 03894-6, 6-3 #### [facility] CLIA [id number] [address] [place] [address] [place] Platelet mean volume (Bld) [Entitic vol] 11.3 fL Normal 9.0-12.7 [facility] Comment on above: Order Comment: Speci men Type: BLOOD SPECIMEN Ordering Facility: [facility] Address: [address] [place] [address] Performed By: #### 2 4323-8, 3024-7, 21707-1, 6-3 #### [facility] CLIA [id number] [address] [place] [address] [place] Platelets (Bld) [#/Vol] 191 10*3/uL Normal 150-400 [facility] Comment on above: Order Comment: Speci men Type: BLOOD SPECIMEN Ordering Facility: [facility] Address: [address] [place] [address] Performed By: #### 2 4323-8, 3024-7, 38910-7, 6-3 #### [facility] CLIA [id number] [address] [place] [address] [place] RBC (Bld) [#/Vol] 3.96 10*6/uL Normal 3.90-5.20 [facility] Comment on above: Order Comment: Speci men Type: BLOOD SPECIMEN Ordering Facility: [facility] Address: [address] [place] [address] Performed By: #### 2 4323-8, 3024-7, 20073-3, 6-3 #### [facility] CLIA [id number] [address] [place] [address] [place] WBC (Bld) [#/Vol] 7.58 10*3/uL Normal 3.70-11.00 [facility] Comment on above: Order Comment: Speci men Type: BLOOD SPECIMEN Ordering Facility: [facility] Address: [address] [place] [address] Performed By: #### 2 4323-8, 3024-7, 31358-6, 6-3 #### [facility] CLIA [id number] [address] [place] [address] [place] Comprehensive metabolic 2000 panelon 05-30-2024 Albumin [Mass/Vol] 4.1 g/dL Normal 3.9-4.9 [facility] Comment on above: Order Comment: Speci men Type: BLOOD SPECIMEN Ordering Facility: [facility] Address: [address] [place] [address] Performed By: #### 2 4323-8, 3024-7, 30326-1, 6-3 #### [facility] CLIA [id number] [address] [place] [address] [place] ALP [Catalytic activity/Vol] 62 U/L Normal 34-123 [facility] Comment on above: Order Comment: Speci men Type: BLOOD SPECIMEN Ordering Facility: [facility] Address: [address] [place] [address] Performed By: #### 2 4323-8, 3024-7, 75654-6, 3016-3 #### [facility] CLIA [id number] [address] [place] [address] [place] ALT [Catalytic activity/Vol] 13 U/L Normal 7-38 [facility] Comment on above: Order Comment: Speci men Type: BLOOD SPECIMEN Ordering Facility: [facility] Address: [address] [place] [address] Performed By: #### 2 4323-8, 3024-7, 34532-8, 3016-3 #### [facility] CLIA [id number] [address] [place] [address] [place] Anion gap [Moles/Vol] 12 mmol/L Normal 8-15 [facility] Comment on above: Order Comment: Speci men Type: BLOOD SPECIMEN Ordering Facility: [facility] Address: [address] [place] [address] Performed By: #### 2 4323-8, 3024-7, 96845-4, 3016-3 #### [facility] CLIA [id number] [address] [place] [address] [place] AST [Catalytic activity/Vol] 24 U/L Normal 13-35 [facility] Comment on above: Order Comment: Speci men Type: BLOOD SPECIMEN Ordering Facility: [facility] Address: [address] [place] [address] Performed By: #### 2 4323-8, 3024-7, 41111-3, 3016-3 #### [facility] CLIA [id number] [address] [place], [place] [address] [place] Bilirubin [Mass/Vol] 0.4 mg/dL Normal 0.2-1.3 [facility] Comment on above: Order Comment: Speci men Type: BLOOD SPECIMEN Ordering Facility: [facility] Address: [address] [place] [address] Performed By: #### 2 4323-8, 3024-7, 33699-8, 3016-3 #### [facility] CLIA [id number] [address] [place] [address] [place] Calcium [Mass/Vol] 10.0 mg/dL Normal 8.5-10.2 [facility] Comment on above: Order Comment: Speci men Type: BLOOD SPECIMEN Ordering Facility: [facility] Address: [address] [place] [address] Performed By: #### 2 4323-8, 3024-7, 88872-5, 6-3 #### [facility] CLIA [id number] [address] [place] [address] [place] Chloride [Moles/Vol] 107 mmol/L Normal 98-107 [facility] Comment on above: Order Comment: Speci men Type: BLOOD SPECIMEN Ordering Facility: [facility] Address: [address] [place] [address] Performed By: #### 2 4323-8, 3024-7, 95559-3, 6-3 #### [facility] CLIA [id number] [address] [place] [address] [place] CO2 [Moles/Vol] 23 mmol/L Normal 22-30 [facility] Comment on above: Order Comment: Speci men Type: BLOOD SPECIMEN Ordering Facility: [facility] Address: [address] [place] [address] Performed By: #### 2 4323-8, 3024-7, 44159-2, 3016-3 #### [facility] CLIA [id number] [address] [place] [address] [place] Creatinine [Mass/Vol] 1.20 mg/dL High 0.58-0.96 [facility] Comment on above: Order Comment: Johana jarvis Type: BLOOD SPECIMEN Ordering Facility: [facility] Address: [address] [place] [address] Performed By: #### 2 4323-8, 3024-7, 69055-1, 3016-3 #### [facility] CLIA [id number] [address] [place] [address] [place] Creatinine and Glomerular filtration rate.predicted panel (S/P/Bld) 48 mL/min/1.73m??? Low >=60 [facility] Comment on above: Order Comment: Johana jarvis Type: BLOOD SPECIMEN Ordering Facility: [facility] Address: [address] [place] [address] Result Comment: Elena mated Glomerular Filtration Rate (eGFR) is calculated using the 2020 CKD-EPI creatinine equation. This equation utilizes serum creatinine, sex, and age as parameters. The creatinine assay has traceable calibration to isotope dilution-mass spectrometry. Refer to KDIGO guidelines for clinical interpretation. In patients with unstable renal function, e.g. those with acute kidney injury, the eGFR may not accurately reflect actual GFR. Performed By: #### 2 4323-8, 3024-7, 44976-8, 3016-3 #### [facility] CLIA [id number] [address] [place] [address] [place] Glucose [Mass/Vol] 113 mg/dL High 74-99 [facility] Comment on above: Order Comment: Johana jarvis Type: BLOOD SPECIMEN Ordering Facility: [facility] Address: [address] [place] [address] Result Comment: The [place] Diabetes [employer] (ADA) provides guidance for cutoff values for fasting glucose and random glucose. The ADA defines fasting as no caloric intake for at least 8 hours. Fasting plasma glucose results between 100 to 125 mg/dL indicate increased risk for diabetes (prediabetes). Fasting plasma glucose results greater than or equal to 126 mg/dL meet the criteria for diagnosis of diabetes. In the absence of unequivocal hyperglycemia, results should be confirmed by repeat testing. In a patient with classic symptoms of hyperglycemia or hyperglycemic crisis, random plasma glucose results greater than or equal to 200 mg/dL meet the criteria for diagnosis of diabetes. Reference: Standards of Medical Care in Diabetes 2016, [place] [employer]. Diabetes Care. 2016.39(Suppl 1). Performed By: #### 2 4323-8, 3024-7, 51282-8, 3016-3 #### [facility] CLIA [id number] [address] [place] [address] [place] Potassium [Moles/Vol] 4.7 mmol/L Normal 3.7-5.1 [facility] Comment on above: Order Comment: Speci men Type: BLOOD SPECIMEN Ordering Facility: [facility] Address: [address] [place] [address] Performed By: #### 2 4323-8, 3024-7, 98972-3, 6-3 #### [facility] CLIA [id number] [address] [place] [address] [place] Protein [Mass/Vol] 6.5 g/dL Normal 6.3-8.0 [facility] Comment on above: Order Comment: Speci men Type: BLOOD SPECIMEN Ordering Facility: [facility] Address: [address] [place] [address] Performed By: #### 2 4323-8, 302-7, 24675-0, 6-3 #### [facility] CLIA [id number] [address] [place] [address] [place] Sodium [Moles/Vol] 142 mmol/L Normal 136-144 [facility] Comment on above: Order Comment: Speci men Type: BLOOD SPECIMEN Ordering Facility: [facility] Address: [address] [place] [address] Performed By: #### 2 4323-8, 3024-7, 97743-6, 3016-3 #### [facility] CLIA [id number] [address] [place] [address] [place] Urea nitrogen [Mass/Vol] 38 mg/dL High 7-21 [facility] Comment on above: Order Comment: Johana jarvis Type: BLOOD SPECIMEN Ordering Facility: [facility] Address: [address] [place] [address] Performed By: #### 2 4323-8, 3024-7, 43940-4, 6-3 #### [facility] CLIA [id number] [address] [place] [address] [place] HbA1c (Bld)on 05-30-2024 Average glucose Estimated from glycated hemoglobin (Bld) [Mass/Vol] 131 mg/dL Normal [facility] Comment on above: Order Comment: Johana jarvis Type: BLOOD SPECIMEN Ordering Facility: [facility] Address: [address] [place] [address] Result Comment: eAG: (Estimated average glucose) is a calculated value from HgbA1c and is employment program representative of the average blood glucose level in the last 2-3 month period. Performed By: #### 2 4323-8, 3024-7, 80642-6, 3015-3 #### [facility] CLIA [id number] [address] [place] [address] [place] HbA1c (Bld) [Mass fraction] 6.2 % High 4.3-5.6 [facility] Comment on above: Order Comment: Johana jarvis Type: BLOOD SPECIMEN Ordering Facility: [facility] Address: [address] [place] [address] Result Comment: [place] Diabetes Association guidelines indicate that patients with HgbA1c in the range 5.7-6.4% are at increased risk for development of diabetes, and intervention by lifestyle modification may be beneficial. HgbA1c greater or equal to 6.5% is considered diagnostic of diabetes. Performed By: #### 2 4323-8, 3024-7, 60060-7, 3015-3 #### [facility] CLIA [id number] [address] [place], [place] [address] [place] Lipid 1996 panelon 4 Cholesterol [Mass/Vol] 151 mg/dL Normal <200 [facility] Comment on above: Order Comment: Speci men Type: BLOOD SPECIMEN Ordering Facility: [facility] Address: [address] [place] [address] Result Comment: <200 mg/dL, Desirable 200-239 mg/dL, Borderline high >239 mg/dL, High Performed By: #### 2 4323-8, 3024-7, 34844-9, 3016-3 #### [facility] CLIA [id number] [address] [place] [address] [place] Cholesterol in HDL [Mass/Vol] 47 mg/dL Normal >39 [facility] Comment on above: Order Comment: Speci men Type: BLOOD SPECIMEN Ordering Facility: [facility] Address: [address] [place] [address] Result Comment: 40-5 9 mg/dL, Acceptable >59 mg/dL, High: Negative risk factor for coronary heart disease <40 mg/dL, Low: Positive risk factor for coronary heart disease Performed By: #### 2 4323-8, 3024-7, 30803-7, 3016-3 #### [facility] CLIA [id number] [address] [place] [address] [place] Cholesterol in LDL [Mass/Vol] 71 mg/dL Normal <100 [facility] Comment on above: Order Comment: Speci men Type: BLOOD SPECIMEN Ordering Facility: [facility] Address: [address] [place] [address] Result Comment: <100 mg/dL, Optimal 100-129 mg/dL, Near optimal/above optimal 130-159 mg/dL, Borderline high 160-189 mg/dL, High >189 mg/dL, Very high Secondary prevention optimal LDL Cholesterol levels are recommended to be < 70 mg/dL Performed By: #### 2 4323-8, 3024-7, 41458-0, 3016-3 #### [facility] CLIA [id number] [address] [place], [place] [address] [place] Cholesterol in LDL/Cholesterol in HDL [Mass ratio] 1.51 {ratio} Normal <2.54 [facility] Comment on above: Order Comment: Johana jarvis Type: BLOOD SPECIMEN Ordering Facility: [facility] Address: [address] [place] [address] Result Comment: Vlad oakes: 1. National Cholesterol Education Program ATP III Guideline At-A-Glance Quick Desk Reference: National Heart, Lung, and Blood Ideal. National Institutes of Health. 2001: NIH Publication No. 01-3305. 2. An International Atherosclerosis Society position paper: global recommendations for the management of dyslipidemia: executive summary, Atherosclerosis. 2014: 232(2):410-413. Performed By: #### 2 4323-8, 3024-7, 02159-1, 3016-3 #### [facility] CLIA [id number] [address] [place] [address] [place] Cholesterol in VLDL [Mass/Vol] 33 mg/dL High <30 [facility] Comment on above: Order Comment: Johana jarvis Type: BLOOD SPECIMEN Ordering Facility: [facility] Address: [address] [place] [address] Performed By: #### 2 4323-8, 3024-7, 85775-9, 3016-3 #### [facility] CLIA [id number] [address] [place] [address] [place] Cholesterol non HDL [Mass/Vol] 104 mg/dL Normal <130 [facility] Comment on above: Order Comment: Johana jarvis Type: BLOOD SPECIMEN Ordering Facility: [facility] Address: [address] [place] [address] Result Comment: <130 mg/dL, Optimal 130-159 mg/dL, Near optimal/above optimal 160-189 mg/dL, Borderline high 190-219 mg/dL, High >219 mg/dL, Very high Secondary prevention optimal non HDL Cholesterol levels are recommended to be <100 mg/dL Performed By: #### 2 4323-8, 3024-7, 63765-3, 3016-3 #### [facility] CLIA [id number] [address] [place], [place] [address] [place] Cholesterol.total/Chol esterol in HDL [Mass ratio] 3.21 {ratio} Normal <5.10 [facility] Comment on above: Order Comment: Speci men Type: BLOOD SPECIMEN Ordering Facility: [facility] Address: [address] [place] [address] Performed By: #### 2 4323-8, 3024-7, 91503-5, 3016-3 #### [facility] CLIA [id number] [address] [place] [address] [place] FASTING TIME 13 hrs Normal [facility] Comment on above: Order Comment: Speci men Type: BLOOD SPECIMEN Ordering Facility: [facility] Address: [address] [place] [address] Performed By: #### 2 4323-8, 3024-7, 63420-9, 3016-3 #### [facility] CLIA [id number] [address] [place] [address] [place] Triglyceride [Mass/Vol] 165 mg/dL High <150 [facility] Comment on above: Order Comment: Speci men Type: BLOOD SPECIMEN Ordering Facility: [facility] Address: [address] [place] [address] Result Comment: <150 mg/dL, Normal 150-199 mg/dL, Borderline high 200-499 mg/dL, High >499 mg/dL, Very high Performed By: #### 2 4323-8, 3024-7, 64712-5, 3016-3 #### [facility] CLIA [id number] [address] [place] [address] [place] T3Free SerPl-mCncon 05-30-20 24 Free T3 [Mass/Vol] 3.7 pg/mL Normal 2.3-4.1 [facility] Comment on above: Order Comment: Speci men Type: BLOOD SPECIMEN Ordering Facility: [facility] Address: [address] [place] [address] Performed By: #### 2 4323-8, 3024-7, 30118-7, 3016-3 #### [facility] CLIA [id number] [address] [place] [address] [place] T4 Free SerPl-mCncon 024 Free T4 [Mass/Vol] 2.0 ng/dL High 0.9-1.7 [facility] Comment on above: Order Comment: Speci men Type: BLOOD SPECIMEN Ordering Facility: [facility] Address: [address] [place] [address] Performed By: #### 2 4323-8, 3024-7, 86598-6, 3016-3 #### [facility] CLIA [id number] [address] [place] [address] [place] TSH SerPl-aCncon 05-30-2024 TSH Qn 0.007 m[IU]/L Low 0.270-4.200 [facility] Comment on above: Order Comment: Speci men Type: BLOOD SPECIMEN Ordering Facility: [facility] Address: [address] [place] [address] Performed By: #### 2 4323-8, 3024-7, 44822-9, 3016-3 #### [facility] CLIA [id number] [address] [place] [address] [place] CNPChandrika 05-19-2024 CNPN Telephone (FAMPWS) -------- GELY NEWMAN ([id number]) 1950 F Date Time Provider Department 05/19/24 [facility] During your visit today, we recorded the following information about you: Meagan Martinez MA 05/19/2024 9:19 AM Signed Pt sent in mychart message asking for lab orders for her upcoming appt 06/04/24. She would like these ordered so she can schedule lab appt. Please notify her once these have been ordered. Labs pended, please review and file. ALFONSO Nicole Alyson, APRN.MARK 05/19/2024 11:31 AM Signed Labs are signed as pended. Please make sure she knows these are to be fasting. Thank you, Clary Andres APRN.Joanie Herzog LPN 05/19/2024 12:29 PM Signed Pt was notified of such. 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, GFR 30-44 and albumin creatinine ratio <30 mg/g (HCC) [N18.32] Vitamin D deficiency [E55.9] Dyslipidemia (high LDL; low HDL) [E78.5] Low TSH level [R79.89] Fatigue, unspecified type [R53.83] Order(s):LIPID PANEL BASIC [SQLIPB] Order #: [id number] FUTURE COMPREHENSIVE METABOLIC PANEL [SQCMP] Order #: [id number] FUTURE THYROID STIMULATING HORMONE [SQTSH] Order #: [id number] FUTURE T3, FREE [SQFREET3] Order #: [id number] FUTURE T4 FREE/FREE THYROXINE [SQFT4] Order #: [id number] FUTURE VITAMIN D 25 HYDROXY [SQVITD] Order #: [id number] FUTURE COMPLETE BLOOD COUNT AND DIFFERENTIAL [SQCBCDIF] Order #: [id number] FUTURE HEMOGLOBIN A1C [ZNZVI4H] Order #: [id number] FUTURE Prescriptions as of 05/19/2024 - glimepiride (AMARYL) 4 mg tablet Take 1 tablet by mouth daily with breakfast. - gabapentin (NEURONTIN) 600 mg tablet Take 1 tablet by mouth three times a day for 120 days. - lisinopril (ZESTRIL) 20 mg tablet Take 1 tablet by mouth once daily. - simvastatin (ZOCOR) 40 mg tablet Take 1 tablet by mouth daily at bedtime. - hydroCHLOROthiazide 25 mg tablet Take 1 tablet by mouth once daily. - metFORMIN (GLUCOPHAGE) 500 mg tablet Take 1 tablet by mouth twice daily with meals. - estradiol (ESTRACE) 0.01 % (0.1 mg/gram) vaginal cream Use 1 g vaginally two times a week. - lisinopril (ZESTRIL, PRINIVIL) 40 mg tablet Take 1 tablet by mouth once daily. - blood sugar diagnostic (BLOOD GLUCOSE TEST) test strip Test blood sugar(s) one times daily. Dx: Other DM Code E11.51 Insulin: No - blood sugar diagnostic (ONETOUCH ULTRA TEST) test strip Use as instructed - lisinopril (ZESTRIL, PRINIVIL) 40 mg tablet Take 1 tablet by mouth once daily. - Blood Pressure Test Kit-Medium kit 1 Device once daily. Dx: Essential hypertension - clopidogrel (PLAVIX) 75 mg tablet Take 75 mg by mouth once daily. - ferrous sulfate 325 mg (65 mg iron) tablet Take 325 mg by mouth daily with breakfast. - Cholecalciferol, Vitamin D3, 25 mcg (1,000 unit) cap Take 1,000 Units by mouth once daily. - amLODIPine (NORVASC) 5 mg tablet Take 1 tablet by mouth once daily. - SACCHAROMYCES BOULARDII (PROBIOTIC, S.BOULARDII, ORAL) Take 1 capsule by mouth once daily. - Cranberry Extract 300 mg tab Take by mouth. - acetaminophen (TYLENOL) 325 mg tablet Take 650 mg by mouth every 6 hours as needed. - ascorbic acid, vitamin C, (VITAMIN C) 500 mg tablet Take 1 tablet by mouth once daily. - Dphpdcrq-Tnpu-Pmz-Folic Acid 18-0.4 mg tab Take 1 tablet by mouth once daily. - metoprolol succinate ER (TOPROL XL) 50 mg 24 hr tablet Take 1 tablet by mouth once daily. - omega-3 fatty acids 1,000 mg cap Take 1 capsule by mouth once daily. - Aspirin 81 mg Tab Take 1 tablet by mouth once daily. Take with food. Problem List As Of Date 05/19/2024 Noted Resolved Peripheral vascular occlusive disease [I73.9] 01/13/2013 Diabetes mellitus type 2 with peripheral artery*01/28/2013 Hypertension [I10] 01/28/2013 Overweight (BMI 25.0-29.9) [E66.3] 05/01/2013 Dyslipidemia (high LDL; low HDL) [E78.5] 07/01/2013 Abnormal nuclear stress test [R94.39] 12/09/2013 Carotid atherosclerosis, bilateral [I65.23] 01/21/2015 Multinodular thyroid [E04.2] 02/26/2015 Essential hypertension [I10] 11/30/2015 10/24/2016 Occult blood in stools [R19.5] 10/05/2016 Coronary artery disease [I25.10] 10/24/2016 CKD stage G3b/A1, GFR 30-44 and albumin creatin*01/29/2017 Chronic osteomyelitis with draining sinus, left*01/29/2017 Situational depression [F43.21] 01/29/2017 Benign paroxysmal positional vertigo [H81.10] 11/14/2017 11/30/2021 BPPV (benign paroxysmal positional vertigo), un*02/25/2018 Anemia [D (more content not included)... Normal [facility] XR Lumbar spine 3 Viewson * * *Final Report* * * DATE OF EXAM: Dec 10 2023 9:01AM WOX [id number] - XR LUMBAR 3V AP/LAT/L5-S1 / PROCEDURE REASON: multiple diagnoses * * * * Physician Interpretation * * * * Examination: XR LUMBAR 3V AP/LAT/L5-S1 History: Chronic midline low back pain without sciatica Chronic midline low back pain without sciatica Technique: XR LUMBAR 3V AP/LAT/L5-S1 Comparison: 05/25/2014 RESULT: 5 nonrib-bearing lumbar type vertebrae. For numbering purposes, L4-5 is at the level of the iliac crest. Severe disc space narrowing and vacuum phenomenon from L3 through S1. Diffuse osteopenia. Moderate spondylosis and osteophytosis throughout. Degenerative change involving the posterior elements from L3 through S1. No acute fracture or focal bony abnormality. Vascular wall calcifications. Mild levoscoliosis DIVISION OF RADIOLOGY Provider, Rani Maharaj [facility] - 12/10/2023 * * *Final Report* * * DATE OF EXAM: Dec 10 2023 9:01AM WOX 5228 - XR LUMBAR 3V AP/LAT/L5-S1 / PROCEDURE REASON: multiple diagnoses * * * * Physician Interpretation * * * * Examination: XR LUMBAR 3V AP/LAT/L5-S1 History: Chronic midline low back pain without sciatica Chronic midline low back pain without sciatica Technique: XR LUMBAR 3V AP/LAT/L5-S1 Comparison: 05/25/2014 RESULT: 5 nonrib-bearing lumbar type vertebrae. For numbering purposes, L4-5 is at the level of the iliac crest. Severe disc space narrowing and vacuum phenomenon from L3 through S1. Diffuse osteopenia. Moderate spondylosis and osteophytosis throughout. Degenerative change involving the posterior elements from L3 through S1. No acute fracture or focal bony abnormality. Vascular wall calcifications. Mild levoscoliosis IMPRESSION IMPRESSION: DEGENERATIVE CHANGE IN ALIGNMENT ABNORMALITIES DESCRIBED. PROGRESSION PRIOR STUDY. NO ACUTE ABNORMALITY Poultry Eviscerator: [facility] Transcribe Date/Time: Dec 10 2023 1:03P Dictated by : CHASE SUE MD This examination was interpreted and the report reviewed and electronically signed by: CHASE SUE MD on Dec 10 2023 1:17PM EST [facility] Radiology Study observation (narrative) [facility] XR Lumbar spine 3 ViewsOrder ed By: [facility] Provider on 12-10-2023 [facility] Anaerobic cultureOrdered By: Rishi Vasquez on 08-16-2023 Bacteria identified Anaer cx Nom (Unsp spec) No anaerobic bacteria isolated. [facility] Bacteria identified Cx Nom ( Wound)Ordered By: Rishi Vasquez on 08-16-2023 Wound Culture Meth. resistant Stap h. aureus [facility] Gram stain for investigation of transfusion reactionOrdered By: Rishi Vasquez on 08-16-2023 Microscopic observation Gram stain Nom (Unsp spec) [facility] Anaerobic cultureOrdered By: Rishi Vasquez on 07-27-2023 Bacteria identified Anaer cx Nom (Unsp spec) No anaerobic bacteria isolated. [facility] Bacteria identified Cx Nom ( Wound)Ordered By: Rishi Vasquez on 07-27-2023 Wound Culture Meth. resistant Stap h. aureus [facility] Gram stain for investigation of transfusion reactionOrdered By: Rishi Vasquez on 07-27-2023 Microscopic observation Gram stain Nom (Unsp spec) [facility] Anaerobic cultureOrdered By: Rishi Vasquez on 07-26-2023 Bacteria identified Anaer cx Nom (Unsp spec) No anaerobic bacteria isolated. [facility] Bacteria identified Cx Nom ( Wound)Ordered By: Rishi Vasquez on 07-26-2023 Wound Culture Meth. resistant Stap h. aureus [facility] Gram stain for investigation of transfusion reactionOrdered By: Rishi Vasquez on 07-26-2023 Microscopic observation Gram stain Nom (Unsp spec) [facility] ALEJANDRO DIAG W BEN RIGHTon 06-20 [facility] US BREAST LTD RIGHTon 2022 [facility] UA DIP, URINE (POC)on 2022 BILIRUBIN UA (POCT) Negative Negative [facility] CLARITY [facility]A (POCT) [facility] COLOR UA (POCT) Yellow [facility] GLUCOSE UA (POCT) Negative Negative mg/dL [facility] HEMOGLOBIN/BLOOD UA (POCT) Trace-intact Abnormal Negative [facility] KETONE UA (POCT) Negative Negative mg/dL [facility] LEUKOCYTES UA (POCT) Large Abnormal Negative [facility] NITRITE UA (POCT) Positive Abnormal Negative [facility] PH UA (POCT) 7.0 4.5 - 8.0 [facility] Protein Ql (U) 30 mg/dL Abnormal Negative mg/dL [facility] SPECIFIC GRAVITY UA (POCT) 1.015 1.005 - 1.030 [facility] UROBILINOGEN UA (POCT) 0.2 E.U./dL Jacki l E.U./dL [facility] ALEJANDRO SCREENINGon 05-29-2023 [facility] No Panel Informationon 12-29 [facility] DIP, URINE (POC)on 2021 BILIRUBIN UA (POCT) Negative Negative [facility] CLARITY UA (POCT) Cloudy [facility] COLOR UA (POCT) Yellow [facility] GLUCOSE UA (POCT) 100 mg/dL Abnormal Negative mg/dL [facility] HEMOGLOBIN/BLOOD UA (POCT) Small Abnormal Negative [facility] KETONE UA (POCT) Negative Negative mg/dL [facility] LEUKOCYTES UA (POCT) Moderate Abnormal Negative [facility] NITRITE UA (POCT) Negative Negative [facility] PH UA (POCT) 7.0 4.5 - 8.0 [facility] Protein Ql (U) 100 mg/dL Abnormal Negative mg/dL [facility] SPECIFIC GRAVITY UA (POCT) 1.020 1.005 - 1.030 [facility] UROBILINOGEN UA (POCT) 0.2 E.U./dL Jacki l E.U./dL [facility] No Panel Informationon 08-15 Radiology Study observation (narrative) [facility] XR Sternum Lateral and right anterior obliqueon 08-15-2022 IMPRESSION: No acute osseous abnormality Poultry Eviscerator: SANDRA Transcribe Date/Time: Aug 15 2022 1:22P Dictated by : MAURICIO REYNOLDS MD This examination was interpreted and the report reviewed and electronically signed by: MAURICIO REYNOLDS MD on Aug 15 2022 1:23PM [facility] DIVISION OF RADIOLOGY * * *Final Report* * * DATE OF EXAM: Aug 15 2022 1:11PM WOX 5292 - XR STERNUM 2V BARAJAS/LAT / PROCEDURE REASON: Injury of sternum, initial encounter * * * * Physician Interpretation * * * * EXAMINATION: XR STERNUM 2V BARAJAS/LAT CLINICAL HISTORY: Pain in sternum after fall Technique: XR STERNUM 2V BARAJAS/LAT -- NOT APPLICABLE with 2 views on 2 images Comparison: None RESULT: No acute fracture or destructive osseous lesion. DIVISION OF RADIOLOGY Provider, [facility] - 08/15/2022 * * *Final Report* * * DATE OF EXAM: Aug 15 2022 1:11PM WOX 5292 - XR STERNUM 2V BARAJAS/LAT / PROCEDURE REASON: Injury of sternum, initial encounter * * * * Physician Interpretation * * * * EXAMINATION: XR STERNUM 2V BARAJAS/LAT CLINICAL HISTORY: Pain in sternum after fall Technique: XR STERNUM 2V BARAJAS/LAT -- NOT APPLICABLE with 2 views on 2 images Comparison: None RESULT: No acute fracture or destructive osseous lesion. IMPRESSION IMPRESSION: No acute osseous abnormality Poultry Eviscerator: P[facility] Transcribe Date/Time: Aug 15 2022 1:22P Dictated by : MAURICIO REYNOLDS MD This examination was interpreted and the report reviewed and electronically signed by: MAURICIO REYNOLDS MD on Aug 15 2022 1:23PM EST [facility] XR Sternum Lateral and right anterior obliqueOrdered By: Ccf Provider on 08-15-2022 [facility] XR Wrist - right 4 Viewson 0 08-15-2022 IMPRESSION: No acute fracture. Degenerative disease of the right wrist. Poultry Eviscerator: PSCAngela Transcribe Date/Time: Aug 15 2022 1:20P Dictated by : MAURICIO REYNOLDS MD This examination was interpreted and the report reviewed and electronically signed by: MAURICIO REYNOLDS MD on Aug 15 2022 1:21PM EST DIVISION OF RADIOLOGY * * *Final Report* * * DATE OF EXAM: Aug 15 2022 1:11PM WOX 5273 - XR WRIST 4V PA/LAT/OBL/SCAPH RT / PROCEDURE REASON: Wrist injury, right, initial encounter * * * * Physician Interpretation * * * * EXAMINATION: XR WRIST 4V PA/LAT/OBL/SCAPH RT CLINICAL HISTORY: Right wrist pain after fall Technique: XR WRIST 4V PA/LAT/OBL/SCAPH RT -- RIGHT with 4 views on 4 images Comparison: None RESULT: No acute fracture or dislocation. Marked narrowing of the right first metacarpal phalangeal joint with subchondral sclerosis and marginal osteophytes. Mild triscaphe joint space narrowing. Vascular calcifications are noted. DIVISION OF RADIOLOGY Provider, [facility] - 08/15/2022 * * *Final Report* * * DATE OF EXAM: Aug 15 2022 1:11PM WOX 5273 - XR WRIST 4V PA/LAT/OBL/SCAPH RT / PROCEDURE REASON: Wrist injury, right, initial encounter * * * * Physician Interpretation * * * * EXAMINATION: XR WRIST 4V PA/LAT/OBL/SCAPH RT CLINICAL HISTORY: Right wrist pain after fall Technique: XR WRIST 4V PA/LAT/OBL/SCAPH RT -- RIGHT with 4 views on 4 images Comparison: None RESULT: No acute fracture or dislocation. Marked narrowing of the right first metacarpal phalangeal joint with subchondral sclerosis and marginal osteophytes. Mild triscaphe joint space narrowing. Vascular calcifications are noted. IMPRESSION IMPRESSION: No acute fracture. Degenerative disease of the right wrist. Poultry Eviscerator: P[facility] Transcribe Date/Time: Aug 15 2022 1:20P Dictated by : MAURICIO REYNOLDS MD This examination was interpreted and the report reviewed and electronically signed by: MAURICIO REYNOLDS MD on Aug 15 2022 1:21PM EST [facility] XR SHOULDER GENERAL 3V OR MO RE AP/TRUE AP/OTHER RIGHTon 06-17-2022 [facility] XR Shoulder - right 3 Viewso n 06-17-2022 IMPRESSION: 1. No acute fracture or dislocation. 2. Radiographic changes which can be seen in association with rotator cuff tendonopathy. Poultry Eviscerator: [facility] Transcribe Date/Time: Jun 17 2022 9:43A Dictated by : AIYANA GOMEZ MD This examination was interpreted and the report reviewed and electronically signed by: AIYANA GOMEZ MD on Jun 17 2022 9:45AM EST [id number]_U _DIVISION OF RADIOLOGY * * *Final Report* * * DATE OF EXAM: Jun 17 2022 8:59AM WOX 5253 - XR SHLDR >/=3V AP/CABRERA AP/OTHR RT / PROCEDURE REASON: Acute pain of right shoulder * * * * Physician Interpretation * * * * EXAMINATION: XR SHLDR >/=3V AP/CABRERA AP/OTHR RT HISTORY: Acute pain of right shoulder. Fall. TECHNIQUE: XR SHLDR >/=3V AP/CABRERA AP/OTHR RT Laterality: RIGHT Number of different views (projections): 3 M: XB_1 COMPARISON: There are no prior relevant examinations available for comparison within the [facility]. RESULT: 3 views of the right shoulder show no acute osseous, articular or soft tissue abnormality. There is degenerative change of the right AC joint with periarticular osteophytosis and undersurface spurring of the distal clavicle. There are bony reactive changes of the greater tuberosity with preservation of the acromiohumeral distance. These findings can be seen in association with rotator cuff tendonopathy. Glenohumeral joint is preserved. The visualized lung is clear. [id number] SE_DIVISION OF RADIOLOGY Provider, [facility]o [facility] - 06/17/2022 * * *Final Report* * * DATE OF EXAM: Jun 17 2022 8:59AM WOX 5253 - XR SHLDR >/=3V AP/CABRERA AP/OTHR RT / PROCEDURE REASON: Acute pain of right shoulder * * * * Physician Interpretation * * * * EXAMINATION: XR SHLDR >/=3V AP/CABRERA AP/OTHR RT HISTORY: Acute pain of right shoulder. Fall. TECHNIQUE: XR SHLDR >/=3V AP/CABRERA AP/OTHR RT Laterality: RIGHT Number of different views (projections): 3 M: XB_1 COMPARISON: There are no prior relevant examinations available for comparison within the [facility]. RESULT: 3 views of the right shoulder show no acute osseous, articular or soft tissue abnormality. There is degenerative change of the right AC joint with periarticular osteophytosis and undersurface spurring of the distal clavicle. There are bony reactive changes of the greater tuberosity with preservation of the acromiohumeral distance. These findings can be seen in association with rotator cuff tendonopathy. Glenohumeral joint is preserved. The visualized lung is clear. IMPRESSION IMPRESSION: 1. No acute fracture or dislocation. 2. Radiographic changes which can be seen in association with rotator cuff tendonopathy. Poultry Eviscerator: [facility] Transcribe Date/Time: Jun 17 2022 9:43A Dictated by : AIYANA GOMEZ MD This examination was interpreted and the report reviewed and electronically signed by: AIYANA GOMEZ MD on Jun 17 2022 9:45AM EST [facility] Radiology Study observation (narrative) [facility] XR Shoulder - right 3 ViewsO rdered By: Ccf Provider on 06-17-2022 [facility] ALEJANDRO SCREENINGon 06-05-2022 [facility] HEMOGLOBIN A1C (POC)on 05-31 HbA1c (Bld) [Mass fraction] 6.2 % 4.2 - 5.6 % [facility] Renal function 2000 panelon 03-07-2022 Albumin [Mass/Vol] 4.1 g/dL 3.9 - 4.9 g/dL [facility] Anion gap [Moles/Vol] 14 mmol/L 9 - 18 mmol/L [facility] Calcium [Mass/Vol] 9.9 mg/dL 8.5 - 10. 2 mg/dL [facility] Chloride [Moles/Vol] 105 mmol/L 97 - 10 5 mmol/L [facility] CO2 [Moles/Vol] 23 mmol/L 22 - 30 mmol/L [facility] Creatinine [Mass/Vol] 1.29 mg/dL High 0.58 - 0.96 mg/dL [facility] Estimated Glomerular Filtration Rate 45 mL/min/1.73m Low >=60 mL/min/1.73 m [facility] Glucose [Mass/Vol] 167 mg/dL High 74 - 99 mg/dL [facility] Phosphate [Mass/Vol] 4.0 mg/dL 2.7 - 4 .8 mg/dL [facility] Potassium [Moles/Vol] 4.1 mmol/L 3.7 - 5.1 mmol/L [facility] Sodium [Moles/Vol] 142 mmol/L 136 - 144 mmol/L [facility] Urea nitrogen [Mass/Vol] 42 mg/dL High 7 - 21 mg/dL [facility] Glucose Glucometer (BldC) [M ass/Vol]on 01-20-2022 Glucose [Mass/Vol] 163 mg/dL 74-106 [facility] Work Phone: Comment on above: MANAGEMENT OF PATIEN T CARE PER NURSING PROTOCOL Office Visit: Thyroid Nodule son 08-30-2017 Dietary management education, guidance, and counseling (procedure) yes Invalid Interpretation Code [facility] Work Phone: Documentation of current medications (procedure) Done Invalid Interpretation Code [facility] Work Phone: Fall risk assessment No Invalid Interpretation Code [facility] Work Phone: Tobacco smoking status NHIS Never Invalid Interpretation Code [facility] Work Phone: Tobacco use HS Former smoker Invalid Interpretation Code [facility] Work Phone: Office Visiton 06-11-2017 Dietary management education, guidance, and counseling (procedure) yes Invalid Interpretation Code [facility] Work Phone: [phone] Documentation of current medications (procedure) Done Invalid Interpretation Code [facility] Work Phone: [phone] Protein mass conc Done [facility] Work Phone: [phone] 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 05-30-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 Left ventricular Ejection fraction 60 % Invalid Interpretation Code [facility] Work Phone: [phone] Office Visit: 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 phalanxon 05-02-2017 Dietary management education, guidance, and counseling (procedure) yes Invalid Interpretation Code [facility] Work Phone: [phone] Documentation of current medications (procedure) Done Invalid Interpretation Code [facility] Work Phone: [phone] Fall risk assessment No Invalid Interpretation Code [facility] Work Phone: Protein mass conc Done [facility] Work Phone: Tobacco smoking status NHIS Never Invalid Interpretation Code [facility] Work Phone: Tobacco smoking status NHIS Former smoker [facility] Work Phone: Tobacco use [facility] Former smoker Invalid Interpretation Code [facility] Work Phone: [phone] Office Visiton 04-23-2017 Protein mass conc Done [facility] Work Phone: Lab Report: CRPon 02-21-2017 CRP [Mass/Vol] mg/L Invalid Interpretation Code 0.0-3.0 [facility] Work Phone: Lab Report: Erythrocyte Sed Rateon 02-21-2017 ESR (Bld) [Velocity] 40 mm/h High 0-[address] [facility] Work Phone: Lab Report: Thyroid Peroxida se ABon 02-08-2017 TPO Ab JOSEPH Qn 13 Invalid Interpretation Code 0-34 [facility] Work Phone: Lab Report: Free T3on 2016 Free T3 [Mass/Vol] 3.5 pg/mL Invalid Interpretation Code 2.18-3.98 [facility] Work Phone: Lab Report: T4 Free Directon 02-07-2017 Free T4 [Mass/Vol] 1.35 ng/dL Invalid Interpretation Code 0.76-1.46 [facility] Work Phone: Lab Report: Thyroid Stim Hor oh (TSH)on 02-07-2017 TSH Qn < 0.01 uIU/mL Low 0.358-3.74 [facility] Work Phone: Office Visit: Thyroid alexis harrison 02-06-2017 Adolescent depression screening assessment Adolescent depression screening assessment Invalid Interpretation Code [facility] Work Phone: [phone] Adult depression screening assessment Adolescent depression screening assessment Invalid Interpretation Code [facility] Work Phone: Fall risk assessment No [facility] Work Phone: Tobacco smoking status NHIS Never [facility] Work Phone: Tobacco smoking status NHIS Former smoker [facility] Work Phone: Microbiology: Culture, Wound on 01-28-2017 CUW Trimethoprim/Sulfame tho $ <=20 S Invalid Interpretation Code [facility] Work Phone: wound culture Trimethoprim/Sulfame tho $ <=20 S Invalid Interpretation Code [facility] Work Phone: [phone] 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 01-15-2017 Cholesterol 164 mg/dL Invalid Interpretation Code [facility] Work Phone: [phone] Cholesterol to HDL Ratio 2.98 {ratio} Invalid Interpretation Code [facility] Work Phone: [phone] HDL Cholesterol 55 mg/dL Low [facility] Work Phone: [phone] LDL Cholesterol 67 mg/dL Invalid Interpretation Code [facility] Work Phone: [phone] LDL/HDL ratio, serum 1.22 Invalid Interpretation Code [facility] Work Phone: [phone] Triglyceride 210 mg/dL High [facility] Work Phone: [phone] low density lipoproteins 42 mg/dL High [facility] Work Phone: [phone] Lab Report: Basic Metabolic Profile (BMP)on 01-12-2017 Anion gap 8 mmol/L Invalid Interpretation Code 5-15 [facility] Work Phone: [phone] Anion gap [Moles/Vol] 8 mmol/L 5-15 [facility] Work Phone: [phone] Calcium [Mass/Vol] 9.0 mg/dL Invalid Interpretation Code 8.5-10.1 [facility] Work Phone: [phone] Chloride [Moles/Vol] 105 mmol/L Invalid Interpretation Code 98-107 [facility] Work Phone: [phone] CO2 26.0 mmol/L Invalid Interpretation Code 21.0-32.0 [facility] Work Phone: [phone] CO2 (BldV) [Partial pressure] 26.0 mmol/L 21.0-32.0 [facility] Work Phone: [phone] Creatinine [Mass/Vol] 1.63 mg/dL High 0.55-1.02 [facility] Work Phone: [phone] eGFR (non-black) 41 mL/min/{1.73_m2} Low >60 [facility] Work Phone: [phone] GFR - AA 41 mL/min Low >60 [facility] Work Phone: [phone] GFR/1.73 sq M predicted among non-blacks MDRD (S/P/Bld) [Vol rate/Area] 34 mL/min/{1.73_m2} Low >60 [facility] Work Phone: [phone] Glucose 210 mg/dL High 70-110 [facility] Work Phone: [phone] Glucose [Mass/Vol] 210 mg/dL High 70-110 [facility] Work Phone: [phone] Potassium [Moles/Vol] 4.6 mmol/L Invalid Interpretation Code 3.5-5.1 [facility] Work Phone: [phone] Sodium [Moles/Vol] 139 mmol/L Invalid Interpretation Code 136-145 [facility] Work Phone: [phone] Urea nitrogen [Mass/Vol] 53 mg/dL High 7-18 [facility] Work Phone: [phone] Urea nitrogen/Creatinine [Mass ratio] 32.5 RATIO High 10-20 [facility] Work Phone: Replaced Document: (P) CBC W /Diff, Automatedon 01-12-2017 Absolute Neut 3.7 X10 3/UL Invalid Interpretation Code 2.0-7.7 [facility] Work Phone: [phone] Basophils/100 leukocytes 1.2 % High 0-1 [facility] Work Phone: [phone] Basophils/100 WBC (Bld) 1.2 % High 0-1 [facility] Work Phone: Eosinophils/100 leukocytes 8.4 % High 0-5 [facility] Work Phone: [phone] Eosinophils/100 WBC (Bld) 8.4 % High 0-5 [facility] Work Phone: Erythrocyte distribution width (RBC) [Ratio] 44.7 fL High 35.1-43.9 [facility] Work Phone: Erythrocyte distribution width (RBC) [Ratio] 13.9 % 11.6-14.6 [facility] Work Phone: Erythrocytes (RBC) 4.04 10*6/uL Low 4.2-5.[address] [facility] Work Phone: [phone] Hematocrit (Bld) [Volume fraction] 36.0 % Low 37-47 [facility] Work Phone: Hematocrit (HCT) 36.0 % Low 37-47 [facility] Work Phone: [phone] Hemoglobin (Bld) [Mass/Vol] 11.6 g/dL Low 12.0-15.0 [facility] Work Phone: Immature granulocytes (Bld) [#/Vol] 0.200 % 0.0-0.9 [facility] Work Phone: immature granulocytes, percentage of total cells, blood 0.200 % Invalid Interpretation Code 0.0-0.9 [facility] Work Phone: [phone] Immature granulocytes/100 WBC (Bld) 0.200 % Invalid Interpretation Code 0.0-0.9 [facility] Work Phone: [phone] Lymphocytes 1.53 X10 3/UL Invalid Interpretation Code 0.83-4.51 [facility] Work Phone: [phone] Lymphocytes (Bld) [#/Vol] 1.53 X10 3/UL 0.83-4.51 [facility] Work Phone: Lymphocytes/100 leukocytes 23.3 % Invalid Interpretation Code 19-41 [facility] Work Phone: [phone] Lymphocytes/100 WBC (Bld) 23.3 % 19-41 [facility] Work Phone: MCH 28.7 pg Invalid Interpretation Code 27.0-32.0 [facility] Work Phone: [phone] MCH (RBC) [Entitic mass] 28.7 pg 27.0-32.0 [facility] Work Phone: MCHC 32.2 G/GL Invalid Interpretation Code 32-36 [facility] Work Phone: [phone] MCHC (RBC) [Mass/Vol] 32.2 G/GL 32-36 [facility] Work Phone: MCV 89.1 fL Invalid Interpretation Code 81-99 [facility] Work Phone: [phone] MCV (RBC) [Entitic vol] 89.1 fL 81-99 [facility] Work Phone: Monocytes/100 leukocytes 10.5 % High 0-10 [facility] Work Phone: [phone] Monocytes/100 WBC (Bld) 10.5 % High 0-10 [facility] Work Phone: neutrophil count, blood 3.7 X10 3/UL Invalid Interpretation Code 2.0-7.7 [facility] Work Phone: [phone] Neutrophils (Bld) [#/Vol] 3.7 X10 3/UL 2.0-7.7 [facility] Work Phone: Neutrophils/100 leukocytes 56.4 % Invalid Interpretation Code 47-70 [facility] Work Phone: [phone] Neutrophils/100 WBC (Bld) 56.4 % 47-70 [facility] Work Phone: Platelet mean volume (Bld) [Entitic vol] 10.4 fL 6.2-12.0 [facility] Work Phone: Platelets 239 10*3/mm3 Invalid Interpretation Code 150-450 [facility] Work Phone: [phone] Platelets (Bld) [#/Vol] 239 10*3/mm3 150-450 [facility] Work Phone: PMV by Stevo 10.4 fL Invalid Interpretation Code 6.2-12.0 [facility] Work Phone: [phone] RBC (Bld) [#/Vol] 4.04 10*6/uL Low 4.2-5.4 [facility] Work Phone: [phone] RDW SD 44.7 fL High 35.1-43.9 [facility] Work Phone: RDW-CA 13.9 % Invalid Interpretation Code 11.6-14.6 [facility] Work Phone: [phone] red blood cell distribution width, size density 44.7 fL High 35.1-43.9 [facility] Work Phone: [phone] WBC (Bld) [#/Vol] 6.6 10*3/uL 4.4-11.0 [facility] Work Phone: [phone] WBC (Leukocytes) 6.6 10*3/uL Invalid Interpretation Code 4.4-11.0 [facility] Work Phone: [phone] Lab Report: MRSA Wound DNA b y PCRon 01-04-2017 GE use only - for [employer] import when terms are not otherwise specified Positive High Negative [facility] Work Phone: [phone] INR Coag (Bld) [Relative time] Positive High Negative [facility] Work Phone: [phone] SA RESULT Positive High Negative [facility] Work Phone: [phone] Office Visit: 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 Invalid Interpretation Code [facility] Work Phone: [phone] Pathologist Cyto stain Nom (Cvx/Vag) [ID] May foll Invalid Interpretation Code [facility] Work Phone: Platelets LM Ql (Bld) ADEQUATE Invalid Interpretation Code ADEQ [facility] Work Phone: SMEAR COMMENT . Invalid Interpretation Code [facility] Work Phone: Lab Report: IgG Subclasseson 12-02-2016 IgG subclass 1 (S) [Mass/Vol] 392 mg/dL Low 422-1292 [facility] Work Phone: IgG subclass 2 (S) [Mass/Vol] 216 mg/dL Invalid Interpretation Code [phone] [facility] Work Phone: IgG subclass 3 (S) [Mass/Vol] 42 mg/dL Invalid Interpretation Code 41-129 [facility] Work Phone: IgG subclass 4 (S) [Mass/Vol] 9 mg/dL Invalid Interpretation Code 1-291 [facility] Work Phone: Office Visit: day 7 of Cefta raline (mrsa, enterobacter, actinomyces)on 11-22-2016 Adult depression screening assessment Adult depression screening assessment Invalid Interpretation Code [facility] Work Phone: [phone] PHQ-9 quick depression assessment panel [Reported.PHQ] Adult depression screening assessment [facility] Work Phone: Lab Report: GEGE + Protein El ect, Serumon 11-21-2016 Albumin [Mass/Vol] 2.5 g/dL Low 2.9-4.4 [facility] Work Phone: Albumin/Globulin [Mass ratio] 0.9 {ratio} Invalid Interpretation Code 0.7-1.7 [facility] Work Phone: Alpha 2 globulin Elph [Mass/Vol] 1.1 g/dL High 0.4-1.0 [facility] Work Phone: PPELT-1-RXLT 0.3 g/dL Invalid Interpretation Code 0.0-0.4 [facility] Work Phone: BETA GLOBULIN 0.9 g/dL Invalid Interpretation Code 0.7-1.3 [facility] Work Phone: [phone] Gamma globulin Elph [Mass/Vol] 600 mg/dL Invalid Interpretation Code Units converted. See lab report for original value. [facility] Work Phone: [phone] Globulin 2.9 g/dL Invalid Interpretation Code 2.2-3.9 [facility] Work Phone: [phone] Globulin 0.9 g/dL Invalid Interpretation Code 0.7-1.3 [facility] Work Phone: [phone] Globulin 0.3 g/dL Invalid Interpretation Code 0.0-0.4 [facility] Work Phone: [phone] Globulin (S) [Mass/Vol] 2.9 g/dL 2.2-3.9 [facility] Work Phone: GEGE RESULT,S Comment Invalid Interpretation Code . [facility] Work Phone: IgA [Mass/Vol] 249 mg/dL Invalid Interpretation Code 87-352 [facility] Work Phone: IgG [Mass/Vol] 584 mg/dL Low 700-1600 [facility] Work Phone: IgM [Mass/Vol] 40 mg/dL Invalid Interpretation Code 26-217 [facility] Work Phone: lab comments Comment Invalid Interpretation Code . [facility] Work Phone: M-SPIKE . g/dL Invalid Interpretation Code [facility] Work Phone: MONOCLONAL PROTEIN . g/dL Invalid Interpretation Code [facility] Work Phone: [phone] NOTE: Comment Invalid Interpretation Code . [facility] Work Phone: Protein [Mass/Vol] 5.4 g/dL Low 6.0-8.5 [facility] Work Phone: [phone] Protein mass conc Comment . [facility] Work Phone: serum protein electrophoresis, interpretation/comment Comment Invalid Interpretation Code . [facility] Work Phone: [phone] Lab Report: Bedside Glucoseo n 11-18-2016 Glucose 352 mg/dL High 70-110 [facility] Work Phone: [phone] Glucose [Mass/Vol] 352 mg/dL High 70-110 [facility] Work Phone: [phone] Microbiology: Fungus Stainon 11-18-2016 fungus stain . Invalid Interpretation Code [facility] Work Phone: [phone] FUNST . Invalid Interpretation Code [facility] Work Phone: [phone] Lab Report: Basic Metabolic Profile (BMP)on 11-17-2016 Creatinine 45.87 mL/min Invalid Interpretation Code [facility] Work Phone: [phone] Lab Report: Iron+Iron Bindin g Capacityon 11-17-2016 Iron [Mass/Vol] 32 ug/dL Low 50-170 [facility] Work Phone: Iron binding capacity [Mass/Vol] 223 ug/dL Low 250-450 [facility] Work Phone: Iron saturation [Mass fraction] 14.3 % Low 15.0-55.0 [facility] Work Phone: Lab Report: Hemoglobin A1con 11-16-2016 HbA1c (Bld) [Mass fraction] 5.3 % Invalid Interpretation Code 4.2-6.3 [facility] Work Phone: Lab Report: Comprehensive Me tabolic Profilon 11-14-2016 Albumin [Mass/Vol] 2.9 g/dL Low 3.4-5.0 [facility] Work Phone: Alkaline phosphatase (ALP) 56 U/L Invalid Interpretation Code 45-117 [facility] Work Phone: [phone] ALP (Bld) [Catalytic activity/Vol] 56 U/L 45-117 [facility] Work Phone: [phone] ALT [Catalytic activity/Vol] 14 U/L Invalid Interpretation Code 12-78 [facility] Work Phone: [phone] AST [Catalytic activity/Vol] 13 U/L Low 15-37 [facility] Work Phone: Bilirubin [Mass/Vol] 0.20 mg/dL Invalid Interpretation Code 0.20-1.00 [facility] Work Phone: Protein [Mass/Vol] 6.9 g/dL Invalid Interpretation Code 6.4-8.2 [facility] Work Phone: Lab Report: Prealbuminon Prealbumin 12.9 mg/dL Low 20.0-40.0 [facility] Work Phone: [phone] Prealbumin Elph [Mass/Vol] 12.9 mg/dL Low 20.0-40.0 [facility] Work Phone: Lab Report: Vancomycin, Trou gh Levelon 10-09-2016 Vancomycin trough [Mass/Vol] 18.7 ug/mL High 5.0-15.0 [facility] Work Phone: Lab Report: Magnesiumon 08-19 Magnesium [Mass/Vol] 2.3 mg/dL Invalid Interpretation Code 1.8-2.4 [facility] Work Phone: Lab Report: Phosphoruson PHOS 3.8 mg/dL Invalid Interpretation Code 2.5-4.9 [facility] Work Phone: Phosphate [Mass/Vol] 3.8 mg/dL 2.5-4.[address] [facility] Work Phone: Phosphorus Concentratation-Random 3.8 mg/dL Invalid Interpretation Code 2.5-4.9 [facility] Work Phone: [phone] Lab Report: Liver Profileon 09-01-2016 Bilirubin.direct [Mass/Vol] 0.08 mg/dL Invalid Interpretation Code 0.00-0.30 [facility] Work Phone: Lab Report: Partial Thrombop last Timeon 09-01-2016 aPTT Coag (Bld) [Time] 46.2 s High 24.1-36.2 [facility] Work Phone: Lab Report: Prothrombin Time w/INRon 09-01-2016 INR Coag (PPP) [Relative time] 1.2 {INR} Invalid Interpretation Code [facility] Work Phone: INR in blood by coagulation 1.2 {INR} Invalid Interpretation Code [facility] Work Phone: PT Coag (PPP) [Time] 14.8 s Invalid Interpretation Code 11.7-14.9 [facility] Work Phone: Office Visit: Thyroid evalua tionon 04-19-2016 MG Breast screening Normal Bilateral Invalid Interpretation Code [facility] Work Phone: 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 ABNORMAL Invalid Interpretation Code [facility] Work Phone: [phone] Interpretation Sinus Bradycardia -L eft axis. ABNORMAL Invalid Interpretation Code [facility] Work Phone: P [place] 39 deg Invalid Interpretation Code [facility] Work Phone: P wave axis, electrocardiogram 39 deg Invalid Interpretation Code [facility] Work Phone: [phone] GA Interval 154 ms Invalid Interpretation Code [facility] Work Phone: GA interval, electrocardiogram 154 ms Invalid Interpretation Code [facility] Work Phone: [phone] Pulse (Heart Rate) 55 /min Invalid Interpretation Code [facility] Work Phone: [phone] QRS axis, electrocardiogram -36 deg Invalid Interpretation Code [facility] Work Phone: [phone] QRS Duration 104 ms Invalid Interpretation Code [facility] Work Phone: [phone] QRS duration, electrocardiogram 104 ms Invalid Interpretation Code [facility] Work Phone: [phone] QT Interval new path ms Invalid Interpretation Code [facility] Work Phone: QT interval, electrocardiogram new path ms Invalid Interpretation Code [facility] Work Phone: [phone] T [place] 31 deg Invalid Interpretation Code [facility] Work Phone: [phone] T wave axis, electrocardiogram 31 deg Invalid Interpretation Code [facility] Work Phone: [phone] Office Visiton 02-22-2015 Cholesterol [Mass/Vol] 164 mg/dL [facility] Work Phone: [phone] Cholesterol in HDL [Mass/Vol] 57 mg/dL [facility] Work Phone: [phone] Cholesterol in LDL [Mass/Vol] 76 mg/dL [facility] Work Phone: [phone] Triglyceride [Mass/Vol] 155 mg/dL [facility] Work Phone: [phone] 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 02-09-2015 Free T4 index Calc [Mass/Vol] 10.2 Invalid Interpretation Code [facility] Work Phone: [phone] T4 [Mass/Vol] 9.9 ug/dL Invalid Interpretation Code [facility] Work Phone: [phone] Throyxin (T4) Free 10.2 ng/dL Invalid Interpretation Code [facility] Work Phone: [phone] Office Visiton 12-29-2014 cardiac risk group C Invalid Interpretation Code [facility] Work Phone: General cardiovascular disease 10Y risk [#] [place]D'Agost[place] N/A Invalid Interpretation Code [facility] Work Phone: 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 11-18-2014 Cholesterol in LDL/Cholesterol in HDL [Mass ratio] 2.06 [facility] Work Phone: Cholesterol.total/Chol esterol in HDL [Mass ratio] 3.56 {ratio} [facility] Work Phone: Lipoprotein.pre-beta [Mass/Vol] 32 mg/dL [facility] Work Phone: Replaced Document: [employer] E CG Observationson 01-12-2014 Pulse (Heart Rate) 406 ms Invalid Interpretation Code [facility] Work Phone: [phone] Office Visit: Thyroid evalua tionon 01-17-2013 General categories Cyto stain (Cvx/Vag) [Interp] Normal Invalid Interpretation Code [facility] Work Phone: Vital Signs Date Time Vital Sign Value Performing Clinician Facility 05-07-2025 09:19-0400 Body height 167.[address] Rishi Vasquez DO Work Phone: [facility] 05-07-2025 09:19-0400 Body mass index (BMI) [Ratio] 24.7 kg/m2 Dr. Rishi Vasquez DO Work Phone: [facility] 05-07-2025 09:19-0400 Body weight 69.[address] Rishi Vasquez DO Work Phone: [facility] 05-07-2025 09:19-0400 Diastolic blood pressure 63 mm[Hg] Dr. Rishi Vasquez DO Work Phone: [facility] 05-07-2025 09:19-0400 Heart rate 56 /min Dr. Rishi Vasquez DO Work Phone: [facility] 05-07-2025 09:19-0400 Respiratory rate 16 /min Dr. Rishi Vasquez DO Work Phone: [facility] 05-07-2025 09:19-0400 Systolic blood pressure 123 mm[Hg] Dr. Rishi Vasquez DO Work Phone: [facility] 04-30-2025 11:13-0400 Body mass index (BMI) [Ratio] 24.5 kg/m2 Fouzia Chandra PROGRAMS DIRECTOR.SHOEMAKING FINISHER Work Phone: [facility] 04-30-2025 11:13-0400 Body weight 68.86 kg Fouzia Chandra PROGRAMS DIRECTOR.SHOEMAKING FINISHER Work Phone: [facility] 04-30-2025 11:13-0400 Diastolic blood pressure 60 mm[Hg] Fouzia Chandra PROGRAMS DIRECTOR.SHOEMAKING FINISHER Work Phone: [facility] 04-30-2025 11:13-0400 Heart rate 77 /min Fouzia Chandra PROGRAMS DIRECTOR.SHOEMAKING FINISHER Work Phone: [facility] 04-30-2025 11:13-0400 Respiratory rate 12 /min Fouzai Chandra PROGRAMS DIRECTOR.SHOEMAKING FINISHER Work Phone: [facility] 04-30-2025 11:13-0400 SaO2% (BldA) [Mass fraction] 98 % Fouzia Chandra PROGRAMS DIRECTOR.SHOEMAKING FINISHER Work Phone: [facility] 04-30-2025 11:13-0400 Systolic blood pressure 130 mm[Hg] Fouzia Chandra PROGRAMS DIRECTOR.SHOEMAKING FINISHER Work Phone: [facility] 04-15-2025 11:26-0400 Body height 167.[address] Rishi Vasquez DO Work Phone: [facility] 04-15-2025 11:26-0400 Body weight 74.[address] Rishi Vasquez DO Work Phone: [facility] 04-14-2025 07:25-0400 Body mass index (BMI) [Ratio] 26.4 kg/m2 Dr. Rishi Vasquez DO Work Phone: [facility] 04-03-2025 11:01-0400 Body temperature 98.2 [degF] Dr. Rishi Vasquez DO Work Phone: [facility] 04-03-2025 11:01-0400 Body weight 74.[address] Rishi Vasquez DO Work Phone: [facility] 04-03-2025 11:01-0400 Diastolic blood pressure 59 mm[Hg] Dr. Rishi Vasquez DO Work Phone: [facility] 04-03-2025 11:01-0400 Heart rate 60 /min Dr. Rishi Vasquez DO Work Phone: [facility] 04-03-2025 11:01-0400 Respiratory rate 14 /min Dr. Rishi Vasquez DO Work Phone: [facility] 04-03-2025 11:01-0400 SaO2% (BldA) [Mass fraction] 97 % Dr. Rishi Vasquez DO Work Phone: [facility] 04-03-2025 11:01-0400 Systolic blood pressure 124 mm[Hg] Dr. Rishi Vasquez DO Work Phone: [facility] 03-27-2025 10:16-0400 Diastolic blood pressure 68 mm[Hg] Yumiko Podlogar PROGRAMS DIRECTOR.SHOEMAKING FINISHER Work Phone: [facility] 03-27-2025 10:16-0400 Heart rate 74 /min Yumiko Podlogar PROGRAMS DIRECTOR.SHOEMAKING FINISHER Work Phone: [facility] 03-27-2025 10:16-0400 Respiratory rate 16 /min Yumiko Podlogar PROGRAMS DIRECTOR.SHOEMAKING FINISHER Work Phone: [facility] 03-27-2025 10:16-0400 SaO2% (BldA) [Mass fraction] 99 % Yumiko Podlogar PROGRAMS DIRECTOR.SHOEMAKING FINISHER Work Phone: [facility] 03-27-2025 10:16-0400 Systolic blood pressure 134 mm[Hg] Yumiko Podlogar PROGRAMS DIRECTOR.SHOEMAKING FINISHER Work Phone: [facility] 03-20-2025 08:28-0400 Body temperature 98.9 [degF] Dr. Rishi Vasquez DO Work Phone: 4(521)714-065179 [place] [address] 03-20-2025 08:28-0400 Diastolic blood pressure 57 mm[Hg] Dr. Rishi Vasquez DO Work Phone: 4(224)969-090379 [place] [address] 03-20-2025 08:28-0400 Heart rate 52 /min Dr. Rishi Vasquez DO Work Phone: 7(864)238-287179 [place] [address] 03-20-2025 08:28-0400 Respiratory rate 18 /min Dr. Rishi Vasquez DO Work Phone: 5(323)480-426179 [place] [address] 03-20-2025 08:28-0400 SaO2% (BldA) [Mass fraction] 97 % Dr. Rishi Vasquez DO Work Phone: 6(990)434-502279 [place] [address] 03-20-2025 08:28-0400 Systolic blood pressure 142 mm[Hg] Dr. Rishi Vasquez DO Work Phone: 1(012)579-541579 [place] [address] 03-19-2025 10:06-0400 Body height 167.[address] Rishi Vasquez DO Work Phone: 3(178)693-912679 [place] [address] 03-19-2025 10:06-0400 Body mass index (BMI) [Ratio] 26.4 kg/m2 Dr. Rishi Vasquez DO Work Phone: 5(286)556-656679 [place] [address] 03-19-2025 10:06-0400 Body weight 74.[address] Rishi Vasquez DO Work Phone: 0(166)921-545679 [place] [address] 03-11-2025 15:34-0400 Body temperature 97.9 [degF] Dr. Rishi Vasquez DO Work Phone: 9(131)868-119879 [place] [address] 03-11-2025 15:34-0400 Diastolic blood pressure 47 mm[Hg] Dr. Rishi Vasquez DO Work Phone: 8(456)809-734679 [place] [address] 03-11-2025 15:34-0400 Heart rate 58 /min Dr. Rishi Vasquez DO Work Phone: 1(854)439-155479 [place] [address] 03-11-2025 15:34-0400 Respiratory rate 16 /min Dr. Rishi Vasquez DO Work Phone: 9(181)838-579969 [place] [address] 03-11-2025 15:34-0400 SaO2% (BldA) [Mass fraction] 97 % Dr. Rishi Vasquez DO Work Phone: 5(784)597-793869 [place] [address] 03-11-2025 15:34-0400 Systolic blood pressure 112 mm[Hg] Dr. Rishi Vasquez DO Work Phone: 0(867)680-415279 [place] [address] 03-11-2025 05:37-0400 Body mass index (BMI) [Ratio] 26.6 kg/m2 Dr. Rishi Vasquez DO Work Phone: 4(883)909-423979 [place] [address] 03-11-2025 05:37-0400 Body weight 75.[address] Rishi Vasquez DO Work Phone: 8(714)924-308179 [place] [address] 03-07-2025 17:01-0400 Body temperature 98 [degF] Dr. Rishi Vasquez DO Work Phone: 2(927)725-146079 [place] [address] 03-07-2025 17:01-0400 Diastolic blood pressure 78 mm[Hg] Dr. Rishi Vasquez DO Work Phone: 2(230)647-894879 [place] [address] 03-07-2025 17:01-0400 Heart rate 67 /min Dr. Rishi Vasquez DO Work Phone: 3(057)058-407079 [place] [address] 03-07-2025 17:01-0400 Respiratory rate 14 /min Dr. Rishi Vasquez DO Work Phone: 3(811)667-980779 [place] [address] 03-07-2025 17:01-0400 SaO2% (BldA) [Mass fraction] 99 % Dr. Rishi Vasquez DO Work Phone: 5(529)676-244279 [place] [address] 03-07-2025 17:01-0400 Systolic blood pressure 109 mm[Hg] Dr. Rishi Vasquez DO Work Phone: 5(620)929-157779 [place] [address] 03-07-2025 13:42-0400 Body height 167.[address] Rishi Vasquez DO Work Phone: 9(632)797-418079 [place] [address] 03-07-2025 13:42-0400 Body mass index (BMI) [Ratio] 27.6 kg/m2 Dr. Rishi Vasquez DO Work Phone: [facility] 03-07-2025 13:42-0400 Body weight 77.[address] Rishi Vasquez DO Work Phone: [facility] 12-05-2024 09:39-0500 Diastolic blood pressure 60 mm[Hg] Rishi Vasquez DO Work Phone: [facility] 12-05-2024 09:39-0500 Systolic blood pressure 110 mm[Hg] Rishi Vasquez DO Work Phone: [facility] 12-05-2024 09:03-0500 Body mass index (BMI) [Ratio] 25.62 kg/m2 Rishi Vasquez DO Work Phone: [facility] 12-05-2024 09:03-0500 Body temperature 97 [degF] Rishi Vasquez DO Work Phone: [facility] 12-05-2024 09:03-0500 Body weight 72 kg Rishi Vasquez DO Work Phone: [facility] 12-05-2024 09:03-0500 Heart rate 60 /min Rishi Vasquez DO Work Phone: [facility] 12-05-2024 09:03-0500 Respiratory rate 16 /min Rishi Vasquez DO Work Phone: [facility] 06-04-2024 09:43-0400 Body mass index (BMI) [Ratio] 24.69 kg/m2 Rishi Vasquez DO Work Phone: [facility] 06-04-2024 09:43-0400 Body temperature 96.6 [degF] Rishi Vasquez DO Work Phone: [facility] 06-04-2024 09:43-0400 Body weight 69.4 kg Rishi Vasquez DO Work Phone: [facility] 06-04-2024 09:43-0400 Diastolic blood pressure 70 mm[Hg] Rishi Vasquez DO Work Phone: [facility] 06-04-2024 09:43-0400 Heart rate 64 /min Rishi Vasquez DO Work Phone: [facility] 06-04-2024 09:43-0400 Respiratory rate 16 /min Rishi Vasquez DO Work Phone: [facility] 06-04-2024 09:43-0400 Systolic blood pressure 154 mm[Hg] Rishi Vasquez DO Work Phone: [facility] 02-07-2024 09:19-0400 Body mass index (BMI) [Ratio] 25.8 kg/m2 Dr. Rishi Vasquez Work Phone: [facility] 02-07-2024 09:19-0400 Body weight 72.[address] Rishi Vasquez Work Phone: [facility] 02-07-2024 09:19-0400 Diastolic blood pressure 71 mm[Hg] Dr. Rishi Vasquez Work Phone: [facility] 02-07-2024 09:19-0400 Heart rate 47 /min Dr. Rishi Vasquez Work Phone: [facility] 02-07-2024 09:19-0400 Respiratory rate 18 /min Dr. Rishi Vasquez Work Phone: [facility] 02-07-2024 09:19-0400 Systolic blood pressure 142 mm[Hg] Dr. Rishi Vasquez Work Phone: [facility] 01-15-2024 10:00-0500 Diastolic blood pressure 71 mm[Hg] Anselmo Golias PT Work Phone: [facility] 01-15-2024 10:00-0500 Heart rate 63 /min Anselmo Golias PT Work Phone: [facility] 01-15-2024 10:00-0500 Systolic blood pressure 166 mm[Hg] Anselmo Golias PT Work Phone: [facility] 07-03-2023 09:06-0400 Body height 167.[address] Rishi Vasquez Work Phone: [facility] 07-03-2023 09:06-0400 Body mass index (BMI) [Ratio] 26.1 kg/m2 Dr. Rishi Vasquez Work Phone: [facility] 07-03-2023 09:06-0400 Body weight 73.[address] Rishi Vasquez Work Phone: [facility] 07-03-2023 09:06-0400 Diastolic blood pressure 62 mm[Hg] Dr. Rishi Vasquez Work Phone: [facility] 07-03-2023 09:06-0400 Heart rate 55 /min Dr. Rishi Vasquez Work Phone: [facility] 07-03-2023 09:06-0400 Respiratory rate 17 /min Dr. Rishi Vasquez Work Phone: 3(677)774-102579 [place] [address] 07-03-2023 09:06-0400 SaO2% (BldA) [Mass fraction] 99 % Dr. Rishi Vasquez Work Phone: [facility] 07-03-2023 09:06-0400 Systolic blood pressure 145 mm[Hg] Dr. Rishi Vasquez Work Phone: [facility] 06-04-2023 11:25-0400 Body temperature 97.3 [degF] Rishi Vasquez DO Work Phone: [facility] 06-04-2023 11:25-0400 Body weight 72.58 kg Rishi Vasquez DO Work Phone: [facility] 06-04-2023 11:25-0400 Diastolic blood pressure 70 mm[Hg] Rishi Vasquez DO Work Phone: [facility] 06-04-2023 11:25-0400 Heart rate 60 /min Rishi Del Rosarioon DO Work Phone: [facility] 06-04-2023 11:25-0400 Respiratory rate 16 /min Rishi Vasquez DO Work Phone: [facility] 06-04-2023 11:25-0400 Systolic blood pressure 120 mm[Hg] Rishi Vasquez DO Work Phone: [facility] 04-20-2023 08:57-0400 Body height 167.[address] Rishi Vasquez Work Phone: [facility] 04-20-2023 08:57-0400 Heart rate 56 /min Dr. Rishi Vasquez Work Phone: [facility] 04-20-2023 08:51-0400 Body mass index (BMI) [Ratio] 25.9 kg/m2 Dr. Rishi Vasquez Work Phone: 5(964)892-512569 [place] [address] 04-20-2023 08:51-0400 Body weight 73.[address] Rishi Vasquez Work Phone: [facility] 04-20-2023 08:51-0400 Diastolic blood pressure 72 mm[Hg] Dr. Rishi Vasquez Work Phone: 1(130)002-489869 [place] [address] 04-20-2023 08:51-0400 Respiratory rate 18 /min Dr. Rishi Vasquez Work Phone: 9(344)247-236169 [place] [address] 04-20-2023 08:51-0400 SaO2% (BldA) [Mass fraction] 99 % Dr. Rishi Vasquez Work Phone: [facility] 04-20-2023 08:51-0400 Systolic blood pressure 147 mm[Hg] Dr. Rishi Vasquez Work Phone: [facility] 12-05-2022 09:40-0500 Body temperature 97.3 [degF] Rishi Vasquez DO Work Phone: [facility] 12-05-2022 09:40-0500 Body weight 72.58 kg Rishi Vasquez DO Work Phone: [facility] 12-05-2022 09:40-0500 Diastolic blood pressure 82 mm[Hg] Rishi Vasquez DO Work Phone: [facility] 12-05-2022 09:40-0500 Heart rate 64 /min Rishi Vasquez DO Work Phone: [facility] 12-05-2022 09:40-0500 Respiratory rate 16 /min Rishi Vasquez DO Work Phone: [facility] 12-05-2022 09:40-0500 Systolic blood pressure 126 mm[Hg] Rishi Vasquez DO Work Phone: [facility] 09-23-2022 09:01-0400 Body temperature 97.5 [degF] Camille Athy PA-C Work Phone: [facility] 09-23-2022 09:01-0400 Body weight 74.93 kg Camille Athy PA-C Work Phone: [facility] 09-23-2022 09:01-0400 Diastolic blood pressure 72 mm[Hg] Camille Athy PA-C Work Phone: [facility] 09-23-2022 09:01-0400 Heart rate 62 /min Camille Athy PA-C Work Phone: [facility] 09-23-2022 09:01-0400 Respiratory rate 21 /min Camille Athy PA-C Work Phone: [facility] 09-23-2022 09:01-0400 SaO2% (BldA) [Mass fraction] 99 % Camille Athy PA-C Work Phone: [facility] 09-23-2022 09:01-0400 Systolic blood pressure 160 mm[Hg] Camille Athy PA-C Work Phone: [facility] 08-15-2022 12:13-0400 Body temperature 97.81 [degF] Camille Athy PA-C Work Phone: [facility] 08-15-2022 12:13-0400 Body weight 75.03 kg Camille Athy PA-C Work Phone: [facility] 08-15-2022 12:13-0400 Diastolic blood pressure 86 mm[Hg] Camille Athy PA-C Work Phone: [facility] 08-15-2022 12:13-0400 Heart rate 49 /min Camille Athy PA-C Work Phone: [facility] 08-15-2022 12:13-0400 Respiratory rate 18 /min Camille Athy PA-C Work Phone: [facility] 08-15-2022 12:13-0400 SaO2% (BldA) [Mass fraction] 98 % Camille Athy PA-C Work Phone: [facility] 08-15-2022 12:13-0400 Systolic blood pressure 162 mm[Hg] Camille Athy PA-C Work Phone: [facility] 08-08-2022 09:30-0400 Body height 167.[address] Rishi Vasquez Work Phone: [facility] Work Phone: 08-08-2022 09:30-0400 Body mass index (BMI) [Ratio] 26.6 kg/m2 Dr. Rishi Vasquez Work Phone: [facility] Work Phone: 08-08-2022 09:30-0400 Body weight 74.[address] Rishi Vasquez Work Phone: [facility] Work Phone: 08-08-2022 09:30-0400 Diastolic blood pressure 51 mm[Hg] Dr. Rishi Vasquez Work Phone: [facility] Work Phone: 08-08-2022 09:30-0400 Heart rate 46 /min Dr. Rishi Vasquez Work Phone: [facility] Work Phone: 08-08-2022 09:30-0400 Respiratory rate 16 /min Dr. Rishi Vasquez Work Phone: [facility] Work Phone: 08-08-2022 09:30-0400 Systolic blood pressure 126 mm[Hg] Dr. Rishi Vasquez Work Phone: [facility] Work Phone: 06-29-2022 09:35-0400 Diastolic blood pressure 71 mm[Hg] Dr. Rishi Vasquez Work Phone: [facility] Work Phone: 06-29-2022 09:35-0400 Respiratory rate 18 /min Dr. Rishi Vasquez Work Phone: [facility] Work Phone: 06-29-2022 09:35-0400 Systolic blood pressure 164 mm[Hg] Dr. Rishi Vasquez Work Phone: [facility] Work Phone: 06-17-2022 08:24-0400 Body temperature 97.9 [degF] Kena Older PROGRAMS DIRECTOR.SHOEMAKING FINISHER Work Phone: [facility] 06-17-2022 08:24-0400 Body weight 76.39 kg Kena Older PROGRAMS DIRECTOR.SHOEMAKING FINISHER Work Phone: [facility] 06-17-2022 08:24-0400 Diastolic blood pressure 80 mm[Hg] Kena Older PROGRAMS DIRECTOR.SHOEMAKING FINISHER Work Phone: [facility] 06-17-2022 08:24-0400 Heart rate 59 /min Kena Older PROGRAMS DIRECTOR.SHOEMAKING FINISHER Work Phone: [facility] 06-17-2022 08:24-0400 Respiratory rate 20 /min Kena Older PROGRAMS DIRECTOR.SHOEMAKING FINISHER Work Phone: [facility] 06-17-2022 08:24-0400 SaO2% (BldA) [Mass fraction] 97 % Kena Older PROGRAMS DIRECTOR.SHOEMAKING FINISHER Work Phone: [facility] 06-17-2022 08:24-0400 Systolic blood pressure 158 mm[Hg] Kena Older PROGRAMS DIRECTOR.SHOEMAKING FINISHER Work Phone: [facility] 05-31-2022 10:19-0400 Body temperature 98.29 [degF] Rishi Vasquez DO Work Phone: [facility] 05-31-2022 10:19-0400 Body weight 75.3 kg Rishi Vasquez DO Work Phone: [facility] 05-31-2022 10:19-0400 Diastolic blood pressure 70 mm[Hg] Rishi Vasquez DO Work Phone: [facility] 05-31-2022 10:19-0400 Heart rate 56 /min Rishi Vasquez DO Work Phone: [facility] 05-31-2022 10:19-0400 Systolic blood pressure 116 mm[Hg] Rishi Vasquez DO Work Phone: [facility] 02-07-2022 08:55-0400 Body height 167.[address] Rishi Vasquez Work Phone: [facility] Work Phone: 02-07-2022 08:55-0400 Body mass index (BMI) [Ratio] 26.9 kg/m2 Dr. Rishi Vasquez Work Phone: [facility] Work Phone: 02-07-2022 08:55-0400 Body weight 75.[address] Rishi Vasquez Work Phone: [facility] Work Phone: 02-07-2022 08:55-0400 Diastolic blood pressure 68 mm[Hg] Dr. Rishi Vasquez Work Phone: [facility] Work Phone: 02-07-2022 08:55-0400 Heart rate 63 /min Dr. Rishi Vasquez Work Phone: [facility] Work Phone: 02-07-2022 08:55-0400 Respiratory rate 18 /min Dr. Rishi Vasquez Work Phone: [facility] Work Phone: 02-07-2022 08:55-0400 SaO2% (BldA) [Mass fraction] 100 % Dr. Rishi Vasquez Work Phone: [facility] Work Phone: 02-07-2022 08:55-0400 Systolic blood pressure 152 mm[Hg] Dr. Rishi Vasquez Work Phone: [facility] Work Phone: 01-20-2022 09:42-0500 Body temperature 97.6 [degF] Dr. Rishi Vasquez Work Phone: [facility] Work Phone: 01-20-2022 09:42-0500 Diastolic blood pressure 56 mm[Hg] Dr. Rishi Vasquez Work Phone: [facility] Work Phone: 01-20-2022 09:42-0500 Heart rate 75 /min Dr. Rishi Vasquez Work Phone: [facility] Work Phone: 01-20-2022 09:42-0500 Respiratory rate 16 /min Dr. Rishi Vasquez Work Phone: [facility] Work Phone: 01-20-2022 09:42-0500 SaO2% (BldA) [Mass fraction] 98 % Dr. Rishi Vasquez Work Phone: [facility] Work Phone: 01-20-2022 09:42-0500 Systolic blood pressure 123 mm[Hg] Dr. Rishi Vasquez Work Phone: [facility] Work Phone: 12-29-2021 08:28-0500 Body mass index (BMI) [Ratio] 27.1 kg/m2 Dr. Rishi Vasquez Work Phone: [facility] Work Phone: 12-29-2021 08:28-0500 Body temperature 97.8 [degF] Dr. Rishi Vasquez Work Phone: [facility] Work Phone: 12-29-2021 08:28-0500 Body weight 76.[address] Rishi Vasquez Work Phone: [facility] Work Phone: 12-29-2021 08:28-0500 Diastolic blood pressure 64 mm[Hg] Dr. Rishi Vasquez Work Phone: [facility] Work Phone: 12-29-2021 08:28-0500 Heart rate 60 /min Dr. Rishi Vasquez Work Phone: [facility] Work Phone: 12-29-2021 08:28-0500 Respiratory rate 17 /min Dr. Rishi Vasquez Work Phone: [facility] Work Phone: 12-29-2021 08:28-0500 SaO2% (BldA) [Mass fraction] 97 % Dr. Rishi Vasquez Work Phone: [facility] Work Phone: 12-29-2021 08:28-0500 Systolic blood pressure 182 mm[Hg] Dr. Rishi Vasquez Work Phone: [facility] Work Phone: 10-18-2021 23:19-0500 Body mass index (BMI) [Ratio] 26.9 kg/m2 Dr. Rishi Vasquez Work Phone: [facility] Work Phone: 08-30-2017 15:31-0400 BMI (Body Mass Index) 29.78 kg/m2 Kwaku Moscoso MD [facility] Work Phone: 08-30-2017 15:31-0400 Body Temperature 98.1 [degF] Kwaku Moscoso MD [facility] Work Phone: 08-30-2017 15:31-0400 BP Diastolic 73 mm[Hg] Kwaku Moscoso MD [facility] Work Phone: 08-30-2017 15:31-0400 BP Systolic 156 mm[Hg] Kwaku Moscoso MD [facility] Work Phone: 08-30-2017 15:31-0400 Height 165.1 cm Kwaku Moscoso MD [facility] Work Phone: 08-30-2017 15:31-0400 Pulse (Heart Rate) 54 /min Kwaku Moscoso MD [facility] Work Phone: 08-30-2017 15:31-0400 Respiratory Rate 18 /min Kwaku Moscoso MD [facility] Work Phone: 08-30-2017 15:31-0400 Weight 81.19 kg Kwaku Moscoso MD [facility] Work Phone: 06-11-2017 10:53-0400 BMI (Body Mass Index) 29.7 kg/m2 [facility] Work Phone: 06-11-2017 10:53-0400 BP Diastolic 60 mm[Hg] [facility] Work Phone: 06-11-2017 10:53-0400 BP Systolic 142 mm[Hg] [facility] Work Phone: 06-11-2017 10:53-0400 Height 167.64 cm [facility] Work Phone: 06-11-2017 10:53-0400 Pulse (Heart Rate) 54 /min [facility] Work Phone: 06-11-2017 10:53-0400 Respiratory Rate 18 /min [facility] Work Phone: 06-11-2017 10:53-0400 Weight 83.46 kg [facility] Work Phone: 05-02-2017 12:55-0400 BMI (Body Mass Index) 29.7 kg/m2 [facility] Work Phone: 05-02-2017 12:55-0400 BP Diastolic 62 mm[Hg] [facility] Work Phone: 05-02-2017 12:55-0400 BP Systolic 110 mm[Hg] Marly Signs MD [facility] Work Phone: 05-02-2017 12:55-0400 Pulse (Heart Rate) 62 /min Marly Signs [facility] Work Phone: 05-02-2017 12:55-0400 Pulse Oximetry 99 % Marly Signs MD [facility] Work Phone: 05-02-2017 12:55-0400 Weight 83.46 kg Marly Signs MD [facility] Work Phone: 04-23-2017 11:14-0400 BMI (Body Mass Index) 30.08 kg/m2 Shaina Serna LPN [facility] Work Phone: 04-23-2017 11:14-0400 Body Temperature 98.7 [degF] Shaina Serna [facility]PN [facility] Work Phone: 04-23-2017 11:14-0400 Body weight 84.55 kg Shaina Serna [facility]PN [facility] Work Phone: 04-23-2017 11:14-0400 BP Diastolic 72 mm[Hg] Shaina Serna [facility]PN [facility] Work Phone: 04-23-2017 11:14-0400 BP Systolic 125 mm[Hg] Shaina Serna [facility] Work Phone: 04-23-2017 11:14-0400 Height 167.64 cm Shaina Serna [facility]PN [facility] Work Phone: 04-23-2017 11:14-0400 Pulse (Heart Rate) 60 /min Shaina Serna [facility]PN [facility] Work Phone: 04-23-2017 11:14-0400 Pulse Oximetry 98 % Shaina Serna [facility] Work Phone: 04-23-2017 11:14-0400 Respiratory Rate 18 /min Shaina Serna [facility]PN [facility] Work Phone: 04-23-2017 11:14-0400 Weight 84.55 kg Marly Signs MD [facility] Work Phone: 02-06-2017 12:57-0400 Body Temperature 98.4 [degF] Shaina Serna [facility]PN [facility] Work Phone: 02-06-2017 12:57-0400 Body weight 80.92 kg Shaina Serna [facility]PN [facility] Work Phone: 02-06-2017 12:57-0400 BP Diastolic 76 mm[Hg] Shaina Serna [facility]PN [facility] Work Phone: 02-06-2017 12:57-0400 BP Systolic 140 mm[Hg] Shaina Serna [facility]PN [facility] Work Phone: 02-06-2017 12:57-0400 BSA (Body Surface Area) 1.91 m2 Shaina Serna LPN [facility] Work Phone: 02-06-2017 12:57-0400 Height 167.64 cm Shaina Serna [facility]PN [facility] Work Phone: 02-06-2017 12:57-0400 Weight 80.92 kg Marlyariela [facility] Work Phone: 12-05-2016 12:56-0500 Pulse Oximetry 98 % Shaina Serna LPN [facility] Work Phone: 11-17-2016 07:54-0500 Body surface area Derived from formula 45.87 mL/min Shaina Serna LPN [facility] Work Phone: 05-25-2015 14:56-0400 Heart rate 55 /min Sh[facility] Work Phone: 01-12-2014 13:16-0500 Heart rate 406 ms Shaina Kareem [employer] [facility] Work Phone: Encounters Encounter Date Encounter Type Care Provider Facility Start: 06-30-2025 ambulatory Rishi Taterison Facilit y:[facility] Start: 05-26-2025 ambulatory Rishi Taterison Facilit y:[facility] Start: 05-08-2025 ambulatory Rishi Vasquez Facilit y:[facility] Start: 05-07-2025 Encounter for preprocedural cardiovascular examination Jarret Hicksan [facility] Start: 05-07-2025 Encounter for preprocedural cardiovascular examination Rick Bergeron TECHNICAL REPORT WRITER [facility] Start: 05-07-2025 End: 05-07-2025 Patient encounter procedure Rick Bergeron TECHNICAL REPORT WRITER- -[facility] Work Phone: Start: 05-07-2025 End: 05-07-2025 Patient encounter status Rick Bergeron TECHNICAL REPORT WRITER-C [facility] Comment on above: Vascular surgery in May Start: 05-07-2025 End: 05-07-[address] Rishi Vasquez DO Work Phone: [facility] Work Phone: Start: 05-06-2025 End: 05-07-2025 Telephone encounter Rishi Vasquez DO Work Phone: [facility] Comment on above: Medication Problem Start: 04-30-2025 End: 04-30-2025 Office outpatient visit 25 minutes Fouzia Escobedo APRN.SHOEMAKING FINISHER Work Phone: [facility] Comment on above: Diabetes mellitus ty pe 2 with peripheral artery disease (HCC) (Primary Dx); Hyperglycemia Start: 04-30-2025 End: 04-30-2025 ambulatory RISHI VASQUEZ Facility:[facility] Start: 04-27-2025 End: 04-27-[address] Rishi Vasquez DO Work Phone: [facility] Work Phone: Start: 04-27-2025 End: 04-27-[address] Ciaran Renee MD -[facility] Work Phone: Start: 04-27-2025 End: 04-27-2025 ambulatory Rishi Taterison Facility:[facility] Start: 04-23-2025 ambulatory Rishi Del Rosarioon Facilit y:[facility] Start: 04-23-[address] Rishi ponce DO -Cardiac Rehab Work Phone: Start: 04-21-[address] Rishi ponce DO -Cardiac Rehab Work Phone: Start: 04-20-2025 Non-patient / Non-visit Dr. Russell dobbs MD -[facility] Start: 04-20-2025 End: 04-20-[address] Rishi Vasquez DO Work Phone: [facility] Work Phone: Start: 04-20-2025 End: 04-20-2025 Patient encounter procedure Abena Fiore PA -Cardiovascular Services Work Phone: Start: 04-20-2025 End: 04-20-2025 ambulatory Rishi Vasquez Facility:[facility] Start: 04-16-2025 End: 04-16-2025 Telephone encounter Rishi Vasquez DO Work Phone: [facility] Comment on above: Fdc Plan of Care Start: 04-15-2025 ambulatory Rishi Vasquez Facilit y:[facility] Start: 04-15-2025 Non-patient / Non-visit Dr. Russell dobbs MD -[facility] Start: 04-15-2025 End: 04-15-2025 Telephone encounter Fouzia Escobedo APRN.CNP Work Phone: [facility] Start: 04-15-2025 End: 04-15-2025 Admission to same day surgery center Dr. Russell Clement MD -Proposal Director/Special Procedures Work Phone: Start: 04-15-2025 End: 04-15-[address] Rishi Vasquez DO Work Phone: [facility] Work Phone: Start: 04-07-2025 End: 04-21-2025 ambulatory Rishi Vasquez DO Work Phone: [facility] Comment on above: Diabetes Start: 04-03-2025 End: 04-03-2025 Patient encounter procedure Abena VYAS -[facility] Work Phone: Start: 04-03-2025 End: 04-03-[address] Rishi Vasquez DO Work Phone: [facility] Work Phone: Start: 03-27-2025 End: 03-27-2025 Patient encounter procedure Yumiko Whitehead PROGRAMS DIRECTORRonSHOEMAKING FINISHER Work Phone: [facility] Comment on above: Hospital discharge f ollow-up (Primary Dx); Diabetic foot ulcer associated with type 2 diabetes mellitus, unspecified laterality, unspecified part of foot, unspecified ulcer stage (HCC); Abnormality of gait; Falling episodes Start: 03-27-2025 End: 03-27-2025 ambulatory RISHI VASQUEZ Facility:[facility] Start: 03-26-2025 End: 03-26-2025 Telephone encounter Rishi Vasquez DO Work Phone: [facility] Comment on above: Patient Update Start: 03-24-2025 End: 03-25-2025 Telephone encounter Rishi Vasquez DO Work Phone: [facility] [place] Comment on above: [facility] PT POC Start: 03-23-2025 End: 03-24-2025 Telephone encounter Rishi Vasquez DO Work Phone: [facility] Comment on above: HH Nursing POC Start: 03-20-2025 End: 03-23-2025 Telephone encounter Rishi Vasquez DO Work Phone: [facility] [place] Comment on above: Orders Start: 03-19-2025 End: 03-19-[address] Phong Solomon MD -Cat Scan [facility] Work Phone: Start: 03-19-2025 End: 04-18-[address] Rishi Vasquez DO -Cardiac Rehab Work Phone: Start: 03-19-[address] Rishi ponce DO -Cardiac Rehab Work Phone: Start: 03-19-2025 End: 04-18-[address] Rishi Vasquez DO Work Phone: [facility] Work Phone: Start: 03-19-2025 End: 03-19-2025 ambulatory Rishi Vasquez Facility:[facility] Start: 03-13-2025 Non-patient / Non-visit Abena VYAS [facility] Start: 03-11-2025 ambulatory Rishi Dewey y:[facility] Start: 03-11-2025 End: 03-20-2025 Evaluation and management of inpatient Dr. Phong Solomon MD -Transitional Care Unit Start: 03-11-2025 Non-patient / Non-visit Dr. Broderick Dempsey MD -[facility] Work Phone: Start: 03-10-2025 Non-patient / Non-visit Dr. Broderick Dempsey MD -[facility] Work Phone: Start: 03-10-2025 Non-patient / Non-visit Abena VYAS [facility] Start: 03-09-2025 Non-patient / Non-visit Dr. Russell dobbs MD -[facility] Start: 03-08-2025 Non-patient / Non-visit Dr. Broderick Dempsey MD -[facility] Work Phone: Start: 03-07-2025 ambulatory Rishi Dewey y:[facility] Start: 03-07-2025 End: 03-11-2025 Evaluation and management of inpatient Dr. Maddie Merchant MD -Medical Surgical 3 Work Phone: Start: 02-26-2025 End: 02-26-[address] Rishi Vasquez DO Work Phone: [facility] Work Phone: Start: 02-26-2025 End: 02-26-[address] Patel Irene DPM -Laboratory, Specimen Work Phone: Start: 02-26-2025 End: 02-26-2025 ambulatory Rishi Vasquez Facility:[facility] Start: 02-17-2025 End: 03-18-[address] Rishi Vasquez DO -Cardiac Rehab Work Phone: Start: 02-17-[address] Rishi ponce DO -Cardiac Rehab Work Phone: Start: 02-17-2025 End: 03-18-2025 ambulatory Rishi Vasquez Facility:[facility] Start: 02-16-2025 End: 02-16-[address] Rishi Vasquez DO Work Phone: [facility] Work Phone: Start: 02-16-2025 End: 02-16-[address] Rishi Vasquez DO -Laboratory, Specimen Work Phone: Start: 02-16-2025 End: 02-16-2025 ambulatory Ciaran Berry Facility:[facility] Start: 02-05-2025 End: 02-16-[address] Rishi Vasquez DO Work Phone: [facility] Work Phone: Start: 02-05-2025 End: 02-16-[address] Rishi Vasquez DO -Cardiac Rehab Work Phone: Start: 01-06-2025 ambulatory Russell Clement Facility:[facility] Start: 01-06-2025 Non-patient / Non-visit Dr. Russell dobbs MD -[facility] Start: 01-06-2025 End: 01-06-[address] Brandon Membreno DPM -Cardiovascular Services Work Phone: Start: 01-06-2025 End: 01-06-2025 ambulatory [place] Pedro Facility:[facility] Start: 12-30-2024 End: 12-30-[address] Patel Irene DPM -Laboratory, Specimen Work Phone: Start: 12-30-2024 End: 12-30-2024 ambulatory Patel Irene Facility:[facility] Start: 12-25-2024 End: 12-26-2024 Refill Rishi Vasquez DO Work Phone: [facility] Comment on above: Refill Request Start: 12-23-2024 End: 01-16-[address] Rishi Vasquez DO -Cardiac Rehab Work Phone: Start: 12-23-2024 End: 01-16-2025 ambulatory Rishi Vasquez Facility:[facility] Start: 12-18-2024 End: 12-19-2024 ambulatory Rishi Vasquez Facility:[facility] Start: 12-18-2024 End: 12-19-[address] Rishi Vasquez DO -Cardiac Rehab Work Phone: Start: 12-17-2024 End: 12-17-[address] Brandon Membreno DPM -Laboratory, Specimen Work Phone: Start: 12-17-2024 End: 12-17-2024 ambulatory Rishi Vasquez Facility:[facility] Start: 12-05-2024 End: 12-05-2024 Patient encounter procedure Rishi Vasquez DO Work Phone: [facility] Comment on above: Diabetes mellitus ty pe 2 with peripheral artery disease (HCC) (Primary Dx); Dyslipidemia (high LDL; low HDL); Encounter for screening mammogram for malignant neoplasm of breast; Stage 3 chronic kidney disease, unspecified whether stage 3a or 3b CKD (HCC); Chronic midline low back pain without sciatica; Degeneration of intervertebral disc of lumbar region with discogenic back pain and lower extremity pain; Essential hypertension; Vitamin D deficiency; Multiple thyroid nodules; Arthritis, multiple joint involvement Start: 12-05-2024 End: 12-05-2024 ambulatory RISHI VASQUEZ Facility:[facility] Start: 12-01-2024 End: 12-01-2024 ambulatory RISHI L VASQUEZ Facility:[facility] Start: 11-29-2024 ambulatory Rishi Vasquez Facilit y:[facility] Start: 11-18-2024 End: 11-18-2024 ambulatory Rishi Vasquez Facility:[facility] Start: 11-18-2024 End: 11-18-[address] Rishi Vasquez DO -Cardiac Rehab Work Phone: Start: 10-14-2024 End: 10-18-2024 ambulatory Rishi Vasquez Facility:[facility] Start: 09-18-2024 End: 09-18-2024 ambulatory Rishi Vasquez Facility:[facility] Start: 09-10-2024 End: 09-15-2024 Telephone encounter Rishi L Vasquez DO Work Phone: [facility] [place] Comment on above: Patient Question Start: 09-05-2024 End: 09-05-2024 Patient encounter procedure [facility] [place] Work Phone: [facility] Start: 09-05-2024 End: 09-05-2024 ambulatory [facility] Nurse [place] Work Phone: [facility] Start: 08-18-2024 End: 08-19-2024 Telephone encounter Rishi L Vasquez DO Work Phone: [facility] Comment on above: Patient Question (Fi sh oil - [place] 3) Start: 08-16-2024 End: 08-18-2024 ambulatory Rishi L Vasquez DO Work Phone: [facility] [place] Comment on above: OMEGA 3 FROM FISH OI L Start: 08-14-2024 End: 08-18-2024 ambulatory Rishi Vasquez Facility:[facility] Start: 08-08-2024 End: 08-12-2024 Telephone encounter Rishi L Vasquez DO Work Phone: [facility] [place] Comment on above: Patient Update Start: 08-01-2024 End: 08-01-2024 ambulatory Rishi Vasquez Facility:[facility] Start: 07-17-2024 End: 07-19-2024 ambulatory Rishi Vasquez Facility:[facility] Start: 06-19-2024 End: 06-19-2024 ambulatory Rishi Vasquez Facility:[facility] Start: 06-17-2024 End: 06-18-2024 ambulatory Rishi Vasquez Facility:[facility] Start: 06-13-2024 Telephone encounter Rishi julian DO Work Phone: [facility] Start: 06-10-2024 ambulatory No Pcp PROGRAMS DIRECTOR [facility] [place] Start: 06-10-2024 Patient encounter procedure No Pcp PROGRAMS DIRECTOR [facility] [place] Start: 06-04-2024 Documentation procedure Mammog rain Coordinator [facility] Department Start: 06-04-2024 Letter encounter Mammography Coordinator [facility] Start: 06-04-2024 Telephone encounter Rishi julian DO Work Phone: [facility] [place] Comment on above: Results Start: 06-04-2024 End: 06-04-2024 ambulatory RISHI VASQUEZ Facility:[facility] Start: 06-04-2024 End: 06-04-2024 Patient encounter procedure Rishi Del Rosarioon DO Work Phone: [facility] Comment on above: Chronic midline low back pain without sciatica (Primary Dx); Peripheral vascular occlusive disease (HCC); 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); DDD (degenerative disc disease), lumbar; Essential hypertension; Stage 3 chronic kidney disease, unspecified whether stage 3a or 3b CKD (HCC); 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); Dyslipidemia (high LDL; low HDL); Vitamin D deficiency; Multiple thyroid nodules Start: 06-03-2024 End: 06-03-2024 ambulatory RISHI VASQUEZ Facility:[facility] Start: 06-03-2024 End: 06-03-2024 Subsequent hospital visit by physician Screen Mammo Pending Sale To [facility] Comment on above: Encounter for screen ing mammogram for malignant neoplasm of breast [Z12.31] Start: 05-30-2024 End: 05-30-2024 ambulatory CLARYGI ANDRES Facility:[facility] Start: 05-19-2024 Telephone encounter Rishi julian DO Work Phone: [facility] [place] Comment on above: Orders Start: 05-18-2024 ambulatory Rishi Wright diane DO Work Phone: [facility] Comment on above: Blood work Start: 05-13-2024 End: 05-18-2024 ambulatory Rishi Vasquez Facility:[facility] Start: 03-22-2024 Refill Rishi Wright son DO Work Phone: [facility] Comment on above: Refill Request Start: 03-20-2024 End: 03-20-2024 ambulatory Anselmo Marr PT Work Phone: [facility] Comment on above: 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 Rishi Vasquez Work Phone: [facility] Work Phone: Start: 03-18-2024 End: 03-18-[address] Rishi Vasquez Work Phone: [facility] Work Phone: Start: 03-13-[address] Jim Vasquez Work Phone: [facility] Work Phone: Start: 03-11-2024 Non-patient / Non-visit Dr. Marcie Vasquez Work Phone: [facility] Start: 03-11-2024 End: 03-11-[address] Rishi Vasquez Work Phone: [facility] Work Phone: Start: 03-11-2024 End: 03-11-[address] 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 Rishi Vasquez Work Phone: [facility] Work Phone: Start: 02-14-2024 End: 02-17-[address] Rishi Vasquez Work Phone: [facility] Work Phone: Start: 02-07-2024 End: 02-07-[address] Rishi Vasquez Work Phone: [facility] Work Phone: Start: 02-05-2024 End: 02-05-2024 ambulatory Keisha Guzman PARACHUTE TAPER Work Phone: [facility] Comment on above: 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) Start: 01-30-2024 End: 01-30-2024 ambulatory Anselmo Golias PT Work Phone: [facility] Comment on above: 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) Start: 01-28-2024 Refill Clary Andres APRN.SHOEMAKING FINISHER Work Phone: [facility] Comment on above: Refill Request Start: 01-23-2024 End: 01-23-2024 ambulatory Anselmo Golias PT Work Phone: [facility] Comment on above: 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) Start: 01-17-2024 End: 01-17-2024 ambulatory [facility] Work Phone: Start: 01-17-2024 End: 01-17-2024 Discharged Recurring [facility] Work Phone: Start: 01-15-2024 End: 01-15-2024 ambulatory Anselmo Marr PT Work Phone: [facility] Comment on above: Chronic midline low back pain without sciatica Start: 01-14-2024 ambulatory Rishi contreras DO Work Phone: [facility] Start: 01-14-2024 Patient encounter procedure Rishi Melinda Pedro DO Work Phone: [facility] Comment on above: APPOINTMENT WITH GEN PEPPER SURGEON Start: 01-10-2024 Telephone encounter Rishi julian DO Work Phone: [facility] Comment on above: Results Start: 12-27-2023 ambulatory Rishi contreras DO Work Phone: [facility] Comment on above: MEDICATION QUESTION Start: 12-27-2023 Telephone encounter Rishi julian DO Work Phone: [facility] Comment on above: Patient Update Start: 12-20-2023 End: 12-20-2023 Subsequent hospital visit by physician [facility] Work Phone: Radiology Comment on above: Multiple thyroid nod ules [E04.2] Start: 12-18-2023 End: 12-19-2023 Discharged Recurring [facility] Work Phone: Start: 12-10-2023 End: 12-10-2023 Subsequent hospital visit by physician [facility] Work Phone: Radiology Comment on above: Chronic midline low back pain without sciatica [M54.50, G89.29] Start: 11-15-2023 End: 11-18-2023 ambulatory [facility] Work Phone: Start: 11-15-2023 End: 11-18-2023 Discharged Recurring [facility] Work Phone: Start: 10-18-2023 End: 10-18-[address] Rishi Vasquez Work Phone: [facility] Work Phone: Start: 10-18-2023 End: 10-18-[address] Rishi Vasquez Work Phone: [facility] Work Phone: Start: 10-03-2023 Refill Rishi contreras DO Work Phone: [facility] Comment on above: Refill Request Start: 09-18-2023 End: 09-18-[address] Rishi Vasquez Work Phone: [facility] Work Phone: Start: 09-18-2023 End: 09-18-[address] Rishi Vasquez Work Phone: [facility] Work Phone: Start: 09-13-[address] Jim Vasquez Work Phone: [facility] Work Phone: Start: 08-31-2023 End: 08-31-2023 ambulatory [facility] Nurse [place] Work Phone: [facility] Start: 08-18-2023 Telephone encounter Rishi julian DO Work Phone: [facility] Comment on above: Results Start: 08-16-2023 End: 08-16-[address] Rishi Vasquez Work Phone: [facility] Work Phone: Start: 08-16-2023 End: 08-18-[address] Rishi Vasquez Work Phone: [facility] Work Phone: Start: 08-16-2023 End: 08-18-[address] Rishi Vasquez Work Phone: [facility] Work Phone: Start: 07-31-2023 Telephone encounter Rishi julian DO Work Phone: [facility] Comment on above: Results Start: 07-31-[address] Jim Vasquez Work Phone: [facility] Work Phone: Start: 07-26-2023 End: 07-26-[address] Rishi Vasquez Work Phone: [facility] Work Phone: Start: 07-26-2023 End: 07-26-[address] Rishi Vasquez Work Phone: [facility], Specimen Work Phone: Start: 07-19-2023 End: 07-19-[address] Rishi Vasquez Work Phone: [facility] Work Phone: Start: 07-19-2023 End: 07-19-[address] Rishi Vasquez Work Phone: [facility] Work Phone: Start: 07-10-2023 Telephone encounter Danyelle allen PA-C Work Phone: [facility] Comment on above: Results Start: 07-10-2023 End: 07-10-2023 Subsequent hospital visit by physician Diagnostic Mammo Pending Sale To [facility] Comment on above: Abnormal mammogram [ R92.8] Start: 07-03-2023 End: 07-03-[address] Rishi Vasquez Work Phone: [facility] Work Phone: Start: 06-14-2023 End: 06-18-[address] Rishi Vasquez Work Phone: [facility] Work Phone: Start: 06-14-2023 End: 06-18-[address] Rishi Vasquez Work Phone: [facility] Work Phone: Start: 06-14-[address] Jim Vasquez Work Phone: [facility] Work Phone: Start: 06-12-2023 Non-patient / Non-visit Dr. Marcie Vasquez Work Phone: [facility] Start: 06-12-2023 End: 06-12-[address] Rishi Vasquez Work Phone: [facility] Work Phone: Start: 06-12-2023 End: 06-12-[address] Rishi Vasquez Work Phone: [facility] Work Phone: Start: 06-04-2023 End: 06-04-2023 Patient encounter procedure Rishi Vasquez DO Work Phone: [facility] Comment on above: Dysuria (Primary Dx) ; Acute cystitis with hematuria; Peripheral vascular occlusive disease (HCC); 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); CKD stage G3b/A1, GFR 30-44 and albumin creatinine ratio <30 mg/g (HCC); Dyslipidemia (high LDL; low HDL); Vitamin D deficiency; Multinodular thyroid; Essential hypertension; Arthritis, multiple joint involvement Start: 05-29-2023 Documentation procedure Mammog rain Coordinator [facility] Start: 05-29-2023 Letter encounter Mammography Coordinator [facility] Start: 05-29-2023 Telephone encounter Danyelle allen PA-C Work Phone: [facility] Comment on above: Results Start: 05-29-2023 End: 05-29-2023 Subsequent hospital visit by physician Screen Mammo Pending Sale To [facility] Comment on above: Encounter for screen ing mammogram for malignant neoplasm of breast [Z12.31] Start: 05-27-2023 Refill Rishi contreras DO Work Phone: [facility] Comment on above: Refill Request Start: 05-17-2023 End: 05-18-[address] Rishi Vasquez Work Phone: [facility] Work Phone: Start: 05-17-2023 End: 05-18-[address] Rishi Vasquez Work Phone: [facility] Work Phone: Start: 04-20-2023 End: 04-20-[address] Rishi Vasquez Work Phone: [facility] Work Phone: Start: 04-17-2023 End: 04-18-2023 ambulatory [facility] Work Phone: Start: 04-17-2023 End: 04-18-2023 Discharged Recurring [facility] Start: 03-15-2023 End: 03-18-2023 ambulatory [facility] Work Phone: Start: 03-15-2023 End: 03-18-2023 Discharged Recurring [facility] Start: 03-12-2023 Telephone encounter Rishi julian DO Work Phone: [facility] Comment on above: Release Of Medical R ecords Start: 02-27-2023 ambulatory Rishi contreras DO Work Phone: [facility] [place] Start: 02-15-2023 End: 02-16-[address] Rishi Vasquez Work Phone: [facility] Work Phone: Start: 02-15-2023 End: 02-16-[address] Rishi Vasquez Work Phone: [facility] Start: 02-05-2023 ambulatory Rishi contreras DO Work Phone: [facility] Comment on above: MAMOGRAM Start: 01-22-2023 Telephone encounter Rishi julian DO Work Phone: [facility] Comment on above: Appointment; Phuong VYAS Start: 01-16-2023 End: 01-16-[address] Rishi Vasquez Work Phone: [facility] Work Phone: Start: 01-16-2023 End: 01-16-[address] Rishi Vasquez Work Phone: [facility] Start: 01-08-2023 Refill Clary Andres APRN.CNP Work Phone: [facility] Comment on above: Refill Request Start: 01-04-2023 Telephone encounter Rishi julian DO Work Phone: [facility] Comment on above: Results Start: 12-29-2022 End: 12-29-2022 Subsequent hospital visit by physician [facility] Work Phone: Nuclear Medicine Comment on above: Abnormal thyroid fun ction test [R94.6] Start: 12-28-2022 End: 12-28-2022 Subsequent hospital visit by physician [facility] Work Phone: Nuclear Medicine Comment on above: Abnormal thyroid fun ction test [R94.6] Start: 12-26-2022 Telephone encounter Rishi julian DO Work Phone: [facility] Comment on above: Results Start: 12-20-2022 End: 12-20-2022 Subsequent hospital visit by physician [facility] Work Phone: Radiology Comment on above: Abnormal thyroid fun ction test [R94.6] Start: 12-19-2022 End: 12-19-[address] Rishi Vasquez Work Phone: [facility] Work Phone: Start: 12-19-2022 End: 12-19-[address] Rishi Vasquez Work Phone: [facility] Start: 12-07-2022 Telephone encounter Rishi julian DO Work Phone: [facility] Comment on above: testing question Start: 12-05-2022 End: 12-05-2022 Patient encounter procedure Rishi Vasquez DO Work Phone: [facility] Comment on above: Diabetes mellitus ty pe 2 with peripheral artery disease (HCC) (Primary Dx); Peripheral vascular occlusive disease (HCC); Dyslipidemia (high LDL; low HDL); Essential hypertension; Dizziness; Carotid atherosclerosis, bilateral; Biceps rupture, proximal, left, initial encounter; Chronic kidney disease, stage 3a (HCC) Start: 11-16-2022 End: 11-18-[address] Rishi Vasquez Work Phone: [facility] Work Phone: Start: 11-16-2022 End: 11-18-[address] Rishi Vasquez Work Phone: [facility] Start: 11-02-[address] Jim Vasquez Work Phone: [facility] Start: 10-27-2022 Non-patient / Non-visit Dr. Marcie Vasquez Work Phone: [facility] Start: 10-27-2022 End: 10-27-[address] Rishi Vasquez Work Phone: [facility] Work Phone: Start: 10-27-2022 End: 10-27-[address] Rishi Vasquez Work Phone: [facility] Start: 10-17-2022 End: 10-18-[address] Rishi Vasquez Work Phone: [facility] Work Phone: Start: 10-17-2022 End: 10-18-[address] Rishi Vasquez Work Phone: [facility] Start: 09-23-2022 End: 09-23-2022 Patient encounter procedure Camille Mitchell PA-C Work Phone: [facility] Comment on above: Acute cystitis with hematuria (Primary Dx) Start: 09-14-2022 End: 09-18-[address] Rishi Vasquez Work Phone: [facility] Work Phone: Start: 09-14-2022 End: 09-18-[address] [facility] Start: 09-09-2022 End: 09-09-2022 ambulatory [facility] Nurse [place] Work Phone: [facility] Comment on above: Arrived Start: 09-06-2022 Telephone encounter Rishi julian DO Work Phone: [facility] Comment on above: Results Start: 08-17-2022 End: 08-18-[address] Rishi Vasquez Work Phone: [facility] Work Phone: Start: 08-17-2022 End: 08-18-[address] R[facility] Start: 08-15-2022 End: 08-15-2022 Subsequent hospital visit by physician [facility] Work Phone: Radiology Comment on above: Injury of sternum, i nitial encounter [S29.9XXA] Start: 08-15-2022 End: 08-15-2022 Patient encounter procedure Camille Mitchell PA-C Work Phone: [facility] Comment on above: Injury of sternum, i nitial encounter (Primary Dx); Wrist injury, right, initial encounter Start: 08-08-2022 End: 08-08-[address] Rishi Vasquez Work Phone: [facility] Start: 07-18-2022 End: 07-19-[address] Rishi Vasquez Work Phone: [facility] Work Phone: Start: 07-18-2022 End: 07-19-[address] Rishi Vasquez Work Phone: [facility] Start: 06-29-2022 End: 06-29-[address] Rishi Vasquez Work Phone: [facility] Start: 06-22-2022 Non-patient / Non-visit Dr. Marcie Vasquez Work Phone: [facility] Start: 06-22-2022 End: 06-22-[address] Rishi Vasquez Work Phone: [facility] Start: 06-17-2022 End: 06-17-2022 Subsequent hospital visit by physician [facility] Work Phone: Radiology Comment on above: Acute pain of right shoulder [M25.511] Start: 06-17-2022 End: 06-17-2022 Patient encounter procedure Kena Sims APRN.SHOEMAKING FINISHER Work Phone: [facility] Comment on above: Acute pain of right shoulder (Primary Dx) Start: 06-15-2022 End: 06-18-2022 Discharged Recurring [facility] Start: 06-05-2022 Documentation procedure Mammog rain Coordinator [facility] Start: 06-05-2022 Letter encounter Mammography Coordinator [facility] Start: 06-05-2022 Telephone encounter Dillon Cid APRN.SHOEMAKING FINISHER Work Phone: [facility] Comment on above: Results; Appointment Start: 06-05-2022 End: 06-05-2022 Subsequent hospital visit by physician Screen Mammo Pending Sale To [facility] Comment on above: Encounter for screen ing mammogram for malignant neoplasm of breast [Z12.31] Start: 05-31-2022 End: 05-31-2022 Patient encounter procedure Rishi Vasquez DO Work Phone: [facility] Comment on above: Diabetes mellitus ty pe 2 with peripheral artery disease (HCC) (Primary Dx); Peripheral vascular occlusive disease (HCC); Vitamin D deficiency; Stage 3 chronic kidney disease, unspecified whether stage 3a or 3b CKD (HCC); Essential hypertension; Dyslipidemia (high LDL; low HDL); Arthritis, multiple joint involvement; Coronary artery disease involving [place] heart, unspecified vessel or lesion type, unspecified whether angina present; Fatigue, unspecified type Start: 05-24-2022 Telephone encounter Rishi julian DO Work Phone: General Surgery Comment on above: Outpatient [place] [facility] Start: 05-18-2022 End: 05-18-2022 Discharged Recurring [facility] Start: 05-01-2022 Refill Rishi contreras DO Work Phone: [facility] Comment on above: Refill Request Start: 04-25-2022 ambulatory Rishi Tatedolly diane DO Work Phone: [facility] Comment on above: BLOOD WORK Start: 04-21-2022 Refill Dillon mcclure PROGRAMS DIRECTOR.SHOEMAKING FINISHER Work Phone: [facility] Comment on above: Refill Request Start: 04-18-2022 End: 04-18-[address] [facility] Start: 03-22-2022 Refill Rishi Wright son DO Work Phone: [facility] Comment on above: Refill Request Start: 03-16-2022 End: 03-18-[address] Rishi Vasquez Work Phone: [facility] Start: 02-24-2022 Telephone encounter Dillon Cid APRN.SHOEMAKING FINISHER Work Phone: [facility] Comment on above: Results Start: 02-16-2022 End: 02-16-[address] Rishi [facility]quez [facility] Start: 02-07-2022 End: 02-07-[address] Rishi Vasquez Work Phone: [facility] Start: 01-20-2022 Non-patient / Non-visit Dr. Marcie Vasquez Work Phone: [facility] Start: 01-20-2022 End: 01-20-2022 Admission to same day surgery center Dr. Rishi Vasquez Work Phone: [facility] Start: 01-10-2022 End: 01-16-[address] Rishi Vasquez Work Phone: [facility] Start: 12-29-2021 End: 12-29-[address] Rishi Vasquez Work Phone: [facility] Start: 12-15-2021 End: 12-19-[address] Rishi Vasquez Work Phone: [facility] Start: 11-17-2021 End: 11-18-[address] Rishi Vasquez Work Phone: [facility] Procedures Date Procedure Procedure Detail Performing Clinician Start: 04-27-2025 US scan of thyroid Dr. Rishi Vasquez DO Work Phone: Start: 04-15-[address] Rishi Vasquez DO Work Phone: Start: 03-19-2025 Measurement of occul t blood in stool specimen using immunoassay Dr. Rishi Vasquez DO Work Phone: Start: 03-19-2025 CT of abdominal aort a with contrast Dr. Rishi Vasquez DO Work Phone: Start: 03-19-[address] Rishi Vasquez DO Work Phone: Start: 03-11-[address] Rishi Vasquez DO Work Phone: Start: 03-09-2025 Complete ultrasound of kidneys and bladder Dr. Rishi Vasquez DO Work Phone: Start: 03-08-2025 Total iron binding capacity measurement Dr. Rishi Vasquez DO Work Phone: Comment on above: Test not performed Start: 03-07-2025 Urnls dip stick/tabl et reagent auto microscopy Dr. Rishi Vasquez DO Work Phone: Start: 03-07-2025 Plain chest X-ray Dr. Saud Vasqeuz DO Work Phone: Start: 03-07-2025 Serum inorganic phos phate measurement Dr. Rishi Vasquez DO Work Phone: Start: 03-07-2025 Measurement of occul t blood in stool specimen using immunoassay Dr. Rishi Vasquez DO Work Phone: Start: 03-07-[address] Jim Vasquez DO Work Phone: Start: 03-07-2025 Plain x-ray of pelvi s and lower extremity Dr. Rishi Vasquez DO Work Phone: Start: 02-26-[address] Rishi Vasquez DO Work Phone: Start: 02-26-2025 Gram stain microscopy Jarad Vasquez DO Work Phone: Start: 02-26-2025 Microbial culture, routine Dr. Rishi Vasquez DO Work Phone: Start: 02-16-2025 Gram stain microscopy Jarad Vasquez DO Work Phone: Start: 02-16-2025 End: 02-16-2025 Microbial culture, routine Dr. Rishi Vasquez DO Work Phone: Start: 02-03-2025 Gram stain microscopy Jarad Vasquez DO Work Phone: Start: 02-03-2025 Microbial culture, routine Dr. Rishi Vasquez DO Work Phone: Start: 12-31-[address] Rishi Vasquez DO Work Phone: Start: 12-31-2024 Gram stain microscopy Jarad Vasquez DO Work Phone: Start: 12-31-2024 Microbial culture, routine Dr. Rishi Vasquez DO Work Phone: Start: 12-30-2024 Gram stain microscopy Jarad Vasquez DO Work Phone: Start: 12-30-2024 Wound microscopy, cu lture and sensitivities Dr. Rishi Vasquez DO Work Phone: Start: 12-10-2023 Radex spine lumbosac ral 2/3 views Rishi Vasquez DO Work Phone: Start: 08-31-2023 INFLUENZA VACCINE, P RSV FREE, AGE 65+ YR, HIGH DOSE, QUADRIVALENT (FLUZONE HIGH-DOSE) Bradley Chance MD Work Phone: Start: 08-16-[address] Rishi Vasquez Work Phone: Start: 08-16-2023 Investigation of transfusion reaction Dr. Rishi Vasquez Work Phone: Start: 08-16-2023 Microbial culture, routine Dr. Rishi Vasquez Work Phone: Start: 07-26-[address] Rishi Vasquez Work Phone: Start: 07-26-2023 Investigation of transfusion reaction Dr. Rishi Vasquez Work Phone: Start: 07-26-2023 Microbial culture, routine Dr. Rishi Vasquez Work Phone: Start: 07-26-2023 Microscopic observat ion [Identifier] in Unspecified specimen by Gram stain Dr. Rishi Vasquez Work Phone: Start: 07-26-[address] Jim Vasquez Work Phone: Start: 07-10-2023 Us breast uni real t asad with image limited Rishi Vasquez DO Work Phone: Start: 07-10-2023 Digital breast tomosynthesis unilateral Danyelle Tripp PA-C Work Phone: Start: 06-04-2023 Urnls dip stick/tabl et rgnt auto w/o microscopy Rishi Taterison DO Work Phone: Start: 05-29-2023 End: 05-29-2023 Mammography Claryhaider Andres PROGRAMS DIRECTOR.SHOEMAKING FINISHER Work Phone: Start: 12-29-2022 Thyroid uptake w/blo od flow sngle/mult jamari natalia Rishi Del Rosarioon DO Work Phone: Start: 12-20-2022 Us soft tissue head & neck real time imge docm Rishi Del Rosarioon DO Work Phone: Start: 09-23-2022 Urnls dip stick/tabl et rgnt auto w/o microscopy Patel Aquino PROGRAMS DIRECTOR.SHOEMAKING FINISHER Work Phone: Start: 09-09-2022 INFLUENZA SEASONAL QUADRIVALENT HIGH DOSE AGE 65+ Rishi Taterison DO Work Phone: Start: 08-15-2022 Radex wrist complete minimum 3 views Camille SORIAC Work Phone: Start: 06-17-2022 Radex shoulder compl ete minimum 2 views Kena Schrader PROGRAMS DIRECTOR.SHOEMAKING FINISHER Work Phone: Start: 06-05-2022 End: 06-05-2022 Screening mammography bi 2-view breast inc cad Rishi Del Rosarioon DO Work Phone: Start: 05-31-2022 Hemoglobin A1c/Hemoglobin.total in Blood Rishi Lawrence Vasquez DO Work Phone: Start: 01-20-2022 Colonoscopy [facility] PROGRAMS DIRECTOR.SHOEMAKING FINISHER Work Phone: Start: 06-10-2021 Mammography [facility] PROGRAMS DIRECTOR.SHOEMAKING FINISHER Work Phone: Start: 06-11-2017 End: 06-11-2017 ISAC Ch MD Work Phone: Start: 06-11-2017 End: 06-11-2017 Follow Up Appt 6 months Brandon Ch MD Work Phone: Start: 06-11-2017 End: 06-11-2017 Dietary management education, guidance, and counseling Gaye Jasmine Start: 06-11-2017 End: 06-11-2017 ISAC Ch MD Work Phone: Start: 06-11-2017 End: 06-11-2017 Follow Up Appt 6 months Brandon Ch MD Work Phone: Start: 05-02-2017 End: 05-02-2017 Dietary management education, guidance, and counseling Marly Patino MD Start: 04-23-2017 End: 04-23-2017 Documentation of current medications Shaina Serna LPN Start: 02-19-2017 End: 02-21-2017 C reactive protein [Mass/volume] in Serum or Plasma by High sensitivity method Marly Patino MD Start: 02-19-2017 End: 02-21-2017 Erythrocyte sedimentation rate Marly Patino MD Start: 02-19-2017 End: 02-21-2017 C reactive protein (hsCRP) Marly Patino MD Start: 02-19-2017 End: 02-21-2017 Erythrocyte sedimentation rate Marly Patino MD Start: 02-06-2017 End: 02-08-2017 Thyroperoxidase Ab [Units/volume] in Serum or Plasma Rebekah Castrejon NP Work Phone: Start: 02-06-2017 End: 02-07-2017 Thyrotropin [Units/volume] in Serum or Plasma Rebekah Castrejon NP Work Phone: Start: 02-06-2017 End: 02-07-2017 Thyroxine (T4) free [Mass/volume] in Serum or Plasma Rebekah Castrejon NP Work Phone: Start: 02-06-2017 End: 02-07-2017 Triiodothyronine (T3) Free [Mass/volume] in Serum or Plasma Rebekah Castrejon NP Work Phone: Start: 02-06-2017 End: 02-06-2017 Dietary management education, guidance, and counseling Shaina Serna LPN Start: 02-06-2017 End: 02-07-2017 Thyroid stimulating hormone (TSH) Rebekah Castrejon TECHNICAL REPORT WRITER Work Phone: Start: 02-06-2017 End: 02-08-2017 Thyroperoxidase antibody Rebekah Castrejon TECHNICAL REPORT WRITER Work Phone: Start: 02-06-2017 End: 02-07-2017 Thyroxine (T4) free Rebekah Castrejon TECHNICAL REPORT WRITER Work Phone: Start: 02-06-2017 End: 02-07-2017 Triiodothyronine (T3) free Rebekah Castrejon TECHNICAL REPORT WRITER Work Phone: Start: 01-08-2017 End: 01-15-2017 *BMP Marly Patino MD Start: 01-08-2017 End: 01-15-2017 *CBC with Differential Marly Patino MD Start: 01-08-2017 End: 01-15-2017 C reactive protein [Mass/volume] in Serum or Plasma by High sensitivity method Marly Patino MD Start: 01-08-2017 End: 01-15-2017 Erythrocyte sedimentation rate Marly Patino MD Start: 01-08-2017 End: 01-15-2017 Mri lower extrem oth/thn jt w/o contr matrl Marly Patino MD Start: 01-08-2017 End: 01-15-2017 *BMP Marly Patino MD Start: 01-08-2017 End: 01-15-2017 *CBC with Differential Marly Patino MD Start: 01-08-2017 End: 01-15-2017 C reactive protein (hsCRP) Marly Patino MD Start: 01-08-2017 End: 01-15-2017 Erythrocyte sedimentation rate Marly Patino MD Start: 01-08-2017 End: 01-15-2017 Mri lower extremity w/o dye Marly Patino MD Start: 01-04-2017 End: 01-15-2017 *CBC with Differential Marly Patino MD Start: 01-04-2017 End: 01-04-2017 Bacteria identified in Wound by Culture Marly Patino MD Start: 01-04-2017 End: 01-15-2017 C reactive protein [Mass/volume] in Serum or Plasma by High sensitivity method Marly Patino MD Start: 01-04-2017 End: 01-15-2017 Erythrocyte sedimentation rate Marly Patino MD Start: 01-04-2017 End: 01-04-2017 Methicillin resistant Staphylococcus aureus (MRSA) DNA [Presence] in Unspecified specimen by MARILYN with probe detection Marly Patino MD Start: 01-04-2017 End: 01-04-2017 Radex foot complete minimum 3 views Marly Patino MD Start: 01-04-2017 End: 01-15-2017 *CBC with Differential Marly Patino MD Start: 01-04-2017 End: 01-04-2017 Bacterica wound culture Marly Abraham Start: 01-04-2017 End: 01-15-2017 C reactive protein (hsCRP) Marly Patino MD Start: 01-04-2017 End: 01-15-2017 Erythrocyte sedimentation rate Marly Patino MD Start: 01-04-2017 End: 01-04-2017 MRSA presence Marly Patino MD Start: 01-04-2017 End: 01-04-2017 X-ray exam of foot Marly Patino MD Start: 01-01-2017 End: 01-02-2017 *CBC with Differential Marly Patino MD Start: 01-01-2017 End: 01-02-2017 C reactive protein [Mass/volume] in Serum or Plasma by High sensitivity method Marly Patino Start: 01-01-2017 End: 01-02-2017 Erythrocyte sedimentation rate Marly Patino Start: 01-01-2017 End: 01-02-2017 *CBC with Differential Marly Patino Start: 01-01-2017 End: 01-02-2017 C reactive protein (hsCRP) Marlyariela Patino Start: 01-01-2017 End: 01-02-2017 Erythrocyte sedimentation rate Marly Patino Start: 12-20-2016 End: 12-20-2016 Radex foot complete minimum 3 views Marly Saud Patino Start: 12-20-2016 End: 12-20-2016 Colonoscopy Shaina Serna LPN Start: 12-20-2016 End: 12-20-2016 X-ray exam of foot Marly Patino Start: 12-18-2016 End: 12-20-2016 *CDIF - Clostridium Diff. Toxin Stool Marly Villavicencio Sukumar LUNDBERG Start: 12-18-2016 End: 12-20-2016 *CDIF - Clostridium Diff. Toxin Stool Marly Villavicencio Sukumar LUNDBERG Start: 12-13-2016 End: 12-15-2016 Radex foot complete minimum 3 views Marly Villavicencio Sukumar LUNDBERG Start: 12-13-2016 End: 12-15-2016 X-ray exam of foot Marly Villavicencio Sukumar LUNDBERG Start: 12-05-2016 End: 12-05-2016 ISAC Ch MD Work Phone: Start: 12-05-2016 End: 12-05-2016 Follow Up Appt 6 months Brandon Ch MD Work Phone: Start: 12-05-2016 End: 12-05-2016 ISAC Ch MD Work Phone: Start: 12-05-2016 End: 12-05-2016 Follow Up Appt 6 months Brandon Ch MD Work Phone: Start: 11-22-2016 End: 12-04-2016 *IGSUB IMMUN Subclas-IGG1,2,3 &4 Marly J Signs Start: 11-22-2016 End: 11-29-2016 Debridement subcutaneous tissue 20 sq cm/< Marly J Signs Start: 11-22-2016 End: 12-04-2016 *IGSUB IMMUN Subclas-IGG1,2,3 &4 Marly J Signs Start: 11-22-2016 End: 11-29-2016 Dalila subq tissue 20 sq cm/< Marly J Signs Start: 09-22-2016 End: 09-29-2016 Debridement subcutaneous tissue 20 sq cm/< Marly J Signs Start: 09-22-2016 End: 09-29-2016 Dalila subq tissue 20 sq cm/< Marly J Signs Start: 11-30-2015 End: 11-30-2015 ISAC Ch MD Work Phone: Start: 11-30-2015 End: 11-30-2015 Follow Up Appt 1 year Lebron Bowie Work Phone: Start: 11-30-2015 End: 11-30-2015 ISAC Ch MD Work Phone: Start: 11-30-2015 End: 11-30-2015 Follow Up Appt 1 year Lebron Bowie Work Phone: Start: 05-25-2015 End: 05-25-2015 ISAC Ch MD Work Phone: Start: 05-25-2015 End: 05-26-2015 Documentation of current medications Brandon Ch MD Work Phone: Start: 05-25-2015 End: 05-25-2015 Ecg routine ecg w/least 12 lds w/i&r Brandon Ch MD Work Phone: Start: 05-25-2015 End: 05-25-2015 Follow Up Appt 6 months Brandon Ch MD Work Phone: Start: 05-25-2015 End: 05-26-2015 Smoking cessation education Brandon Ch MD Work Phone: Start: 05-25-2015 End: 05-25-2015 DJN Brandon Ch MD Work Phone: Start: 05-25-2015 End: 05-26-2015 Documentation of current medications Brandon Ch MD Work Phone: Start: 05-25-2015 End: 05-25-2015 Electrocardiogram, complete Brandon Ch MD Work Phone: Start: 05-25-2015 End: 05-25-2015 Follow Up Appt 6 months Brandon Ch MD Work Phone: Start: 05-25-2015 End: 05-26-2015 Smoking cessation education Brandon Ch MD Work Phone: Start: 01-04-2015 End: 05-19-2015 Vascular Surgery rBandon Ch MD Work Phone: Start: 01-04-2015 End: 05-19-2015 Vascular Surgery Brandon Ch MD Work Phone: Start: 12-29-2014 End: 05-19-2015 *BMP Brandon Ch MD Work Phone: Start: 12-29-2014 End: 01-01-2015 Ct angiography neck w/contrast/noncontrast Brandon Ch MD Work Phone: Start: 12-29-2014 End: 12-29-2014 ISAC Ch MD Work Phone: Start: 12-29-2014 End: 12-29-2014 Follow Up Appt 6 months Brandon Ch MD Work Phone: Start: 12-29-2014 End: 05-19-2015 *BMP Brandon Ch MD Work Phone: Start: 12-29-2014 End: 01-01-2015 Ct angiography, neck Brandon Ch MD Work Phone: Start: 12-29-2014 End: 12-29-2014 ISAC Ch MD Work Phone: Start: 12-29-2014 End: 12-29-2014 Follow Up Appt 6 months Brandon Ch MD Work Phone: Start: 06-12-2014 End: 06-18-2014 24 hour holter monitor Ira Lopez PA-C Work Phone: Start: 06-12-2014 End: 06-22-2014 Carotid duplex Ira Lopez PA-C Work Phone: Start: 06-12-2014 End: 06-12-2014 Follow Up Appt Other Ira Lopez PA-C Work Phone: Start: 06-12-2014 End: 06-18-2014 24 hour holter monitor Ira Lopez PA-C Work Phone: Start: 06-12-2014 End: 06-22-2014 Carotid duplex Ira Lopez PA-C Work Phone: Start: 06-12-2014 End: 06-12-2014 Follow Up Appt Other Ira Lopez PA-C Work Phone: Start: 02-02-2014 End: 04-27-2014 Cardiac Rehab Brandon Ch MD Work Phone: Start: 02-02-2014 End: 02-02-2014 ISAC Ch MD Work Phone: Start: 02-02-2014 End: 02-02-2014 Follow Up Appt 1 year Lebron Bowie Work Phone: Start: 02-02-2014 End: 04-27-2014 Cardiac Rehab Brandon Ch MD Work Phone: Start: 02-02-2014 End: 02-02-2014 ISAC Ch MD Work Phone: Start: 02-02-2014 End: 02-02-2014 Follow Up Appt 1 year Lebron Bowie Work Phone: Start: 01-12-2014 End: 01-13-2014 *BMP Brandon Ch MD Work Phone: Start: 01-12-2014 End: 01-13-2014 CBC W Auto Differential panel - Blood Brandon Ch MD Work Phone: Start: 01-12-2014 End: 01-23-2014 Chest x-ray Brandon Ch MD Work Phone: Start: 01-12-2014 End: 01-12-2014 ISAC Ch MD Work Phone: Start: 01-12-2014 End: 01-12-2014 Follow Up Appt 1 year Lebron Bowie Work Phone: Start: 01-12-2014 End: 01-13-2014 INR in Platelet poor plasma by Coagulation assay Brandon Ch MD Work Phone: Start: 01-12-2014 End: 01-23-2014 Left Heart Cath Brandon Ch MD Work Phone: Start: 01-12-2014 End: 01-13-2014 *BMP Brandon Ch MD Work Phone: Start: 01-12-2014 End: 01-13-2014 CBC W Auto Differential panel - Blood Brandon Ch MD Work Phone: Start: 01-12-2014 End: 01-23-2014 Chest x-ray Brandon Ch MD Work Phone: Start: 01-12-2014 End: 01-13-2014 Coagulation factor induced.INR assay in platelet poor plasma Brandon Ch MD Work Phone: Start: 01-12-2014 End: 01-12-2014 ISAC Ch MD Work Phone: Start: 01-12-2014 End: 01-12-2014 Follow Up Appt 1 year Lebron Bowie Work Phone: Start: 01-12-2014 End: 01-23-2014 Left Heart Cath Brandon Ch MD Work Phone: Start: 01-05-2014 End: 05-30-2017 Preoperative cardiovascular examination PRE-OPERATIVE CARDIOVASCULAR EXAMINATION Shaina Serna LPN Plan of Treatment Date Care Activity Detail Author Start: 2027 RSV Vaccine (1 - 1-dose 75+ series) RSV Vaccine (1 - 1-dose 75+ series) [facility] Start: 01-20-2027 Colonoscopy COLONOSCOPY [facility] Start: 01-20-2027 COLORECTAL CANCER SCREENING COLORECTAL CANCER SCREENING [facility] Start: 01-20-2027 Screening for malignant neoplasm of colon [facility] Start: 04-30-2026 Annual PCP Team Chronic Disease Visit Annual PCP Team Chronic Disease Visit [facility] Start: 04-30-2026 Covid-19 Vaccine ( season) Covid-19 Vaccine ( season) [facility] Comment on above: Postponed from 07/20/2024 (Declined at t his time) Start: 04-30-2026 Shingrix Vaccine (1 of 2) Shingrix Vaccine (1 of 2) [facility] Comment on above: Postponed from 2002 (Declined at t his time) Start: 04-30-2026 Urine microalbumin profile DTaP,Tdap,Td Vaccine (2 - Td or Tdap) [facility] Comment on above: Postponed from 04/24/2023 (Declined at t his time) Start: 03-27-2026 Annual PCP Team Chronic Disease Visit Annual PCP Team Chronic Disease Visit [facility] Start: 12-05-2025 Annual PCP Team Chronic Disease Visit Annual PCP Team Chronic Disease Visit [facility] Start: 12-05-2025 BP Controlled (<130/80) BP Controlled (<130/80) [facility] Start: 12-01-2025 Complete blood count Hemoglobin/Hematocrit [facility] Start: 12-01-2025 Creatinine measurement Serum Creatinine [facility] Start: 01-13-2026 Hepatitis B surface antibody level LDL Cholesterol [facility] Start: 06-16-2025 End: 06-16-2025 Patient encounter procedure 06/16/2025 12:00 PM EDT Office Visit [facility] [address] [place] [address] Rihsi Vasquez, [address] [place] [address] LVM 1st attempt Physical [facility] Comment on above: LVM 1st attempt Physical Start: 06-09-2025 End: 06-09-2025 Patient encounter procedure 06/09/2025 9:00 AM EDT Office Visit [facility] [place] [address] [place] [address] Rishi Vasquez DO [address] [place] [address] Physical [facility] Comment on above: Physical Start: 06-08-2025 End: 06-08-2025 ambulatory 06/08/2025 8:30 AM EDT Results Only [facility] Draw Station [address] [place] [address] [facility] Start: 06-04-2025 Annual PCP Team Chronic Disease Visit Annual PCP Team Chronic Disease Visit [facility] Start: 06-04-2025 BP Controlled (<130/80) BP Controlled (<130/80) [facility] Start: 06-04-2025 End: 06-04-2025 Patient encounter procedure 06/04/2025 9:30 AM EDT Appointment Mammogram [address] [address] Encounter for screening mammogram for malignant neoplasm of breast [Z12.31] Mammogram Comment on above: Encounter for screening mammogram for ma lignant neoplasm of breast [Z12.31] Start: 06-03-2025 Screening for malignant neoplasm of breast Mammogram Screening [facility] Start: 06-02-2025 Glaucoma screening Dilated Retinal Exam [facility] Start: 05-31-2025 Hemoglobin A1c measurement HbA1C [facility] Start: 05-30-2025 Complete blood count Hemoglobin/Hematocrit [facility] Start: 05-30-2025 Creatinine measurement Serum Creatinine [facility] Start: 05-30-2025 Hepatitis B surface antibody level LDL Cholesterol [facility] Start: 04-15-2025 Patient discharge [facility] Start: 04-02-2025 Diabetic foot examination Diabetic Foot Exam [facility] Start: 03-27-2025 End: 03-27-2025 Patient encounter procedure 03/27/2025 10:00 AM EDT Office Visit [facility] [address] [place] [address] PodlogarYumiko APRN.SHOEMAKING FINISHER [address] [place] [address] Discharged 03/20/25 [facility] - Adult failure to thrive, falls, rabdo (no availability within recommended one week F/U with PCP dyad) [facility] Comment on above: Discharged 03/20/25 [facility] - Adult failure to thrive, falls, rabdo (no availability within recommended one week F/U with PCP dyad) Start: 03-20-2025 Patient discharge [facility] Start: 03-19-2025 Developing a treatment plan [facility] Start: 03-19-2025 Development of care plan [facility] Start: 03-19-2025 End: 03-19-2025 [facility] Start: 03-19-2025 End: 03-19-2025 Administration of blood product [facility] Start: 03-18-2025 Referral to service [facility] Start: 03-17-2025 [facility] Start: 03-12-2025 Application of intermittent pneumatic compression device [facility] Start: 03-12-2025 Development of care plan [facility] Start: 03-12-2025 Developing a treatment plan [facility] Start: 03-11-2025 Consultation [facility] Start: 03-11-2025 Referral to nonprofit director [facility] Start: 03-11-2025 Referral to vascular surgeon [facility] Start: 03-11-2025 Contact precautions [facility] Start: 03-11-2025 Wound care [facility] Start: 03-11-2025 Admission procedure [facility] Start: 03-11-2025 Introduction of urinary catheter [facility] Start: 03-11-2025 Measuring intake and output [facility] Start: 03-11-2025 Patient referral to dietitian [facility] Start: 03-11-2025 Referral to occupational therapist [facility] Start: 03-11-2025 Referral to service [facility] Start: 03-11-2025 Vital signs measurements [facility] Start: 03-11-2025 [facility] Start: 03-11-2025 End: 03-11-2025 Consultation for treatment [facility] Start: 03-11-2025 Following clinical pathway protocol [facility] Start: 03-11-2025 Patient discharge [facility] Start: 03-10-2025 Consultation [facility] Start: 03-08-2025 [facility] Start: 03-08-2025 Consultation [facility] Start: 03-08-2025 Referral to tub attendant [facility] Start: 03-08-2025 [facility] Start: 03-08-2025 Referral to vascular surgeon [facility] Start: 03-08-2025 Application of intermittent pneumatic compression device [facility] Start: 03-07-2025 Following clinical pathway protocol [facility] Start: 03-07-2025 Assessment of risk of venous thromboembolism [facility] Start: 03-07-2025 Care regimes management [facility] Start: 03-07-2025 Consultation for treatment [facility] Start: 03-07-2025 Elevation of affected extremity [facility] Start: 03-07-2025 Fall prevention [facility] Start: 03-07-2025 Insertion of catheter into peripheral vein [facility] Start: 03-07-2025 Introduction of urinary catheter [facility] Start: 03-07-2025 Measuring intake and output [facility] Start: 03-07-2025 Notification of physician [facility] Start: 03-07-2025 Patient referral to dietitian [facility] Start: 03-07-2025 Providing care according to standard [facility] Start: 03-07-2025 Provision of activity privileges [facility] Start: 03-07-2025 Referral to occupational therapist [facility] Start: 03-07-2025 Referral to nonprofit director [facility] Start: 03-07-2025 Referral to service [facility] Start: 03-07-2025 Wound care [facility] Start: 03-07-2025 End: 03-07-2025 [facility] Start: 03-07-2025 Admission procedure [facility] Start: 03-07-2025 Hospital admission, emergency, from emergency room, medical nature [facility] Start: 03-07-2025 End: 03-07-2025 [facility] Start: 03-07-2025 Bacteria identified in Urine by Culture Urine Culture [facility] Start: 03-07-2025 [facility] Start: 02-26-2025 Anaerobic microbial culture Anaerobic Culture [facility] Start: 02-26-2025 Source specific culture [facility] Start: 02-16-2025 [facility] Start: 02-16-2025 Microbial culture, routine Wound Culture [facility] Start: 02-16-2025 Microscopic observation [Identifier] in Unspecified specimen by Gram stain [facility] Start: 02-16-2025 Wound Culture Wound Culture [facility] Start: 12-05-2024 End: 03-06-2025 25-hydroxyvitamin D3 [Mass/volume] in Serum or Plasma VITAMIN D 25 HYDROXY Lab Routine Vitamin D deficiency Expected: 12/05/2024, Expires: 03/06/2025 [facility] Comment on above: Expected: 12/05/2024, Expires: Start: 12-05-2024 Annual PCP Team Chronic Disease Visit Annual PCP Team Chronic Disease Visit [facility] Start: 12-05-2024 End: 03-06-2025 CBC panel - Blood by Automated count COMPLETE BLOOD COUNT Lab Routine Peripheral vascular occlusive disease (HCC) Expected: 12/05/2024, Expires: 03/06/2025 [facility] Comment on above: Expected: 12/05/2024, Expires: Start: 12-05-2024 End: 03-06-2025 Cobalamin (Vitamin B12) [Mass/volume] in Serum or Plasma VITAMIN B12 Lab Routine 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) Expected: 12/05/2024, Expires: 03/06/2025 [facility] Comment on above: Expected: 12/05/2024, Expires: Start: 12-05-2024 End: 03-06-2025 Comprehensive metabolic 2000 panel - Serum or Plasma COMPREHENSIVE METABOLIC PANEL Lab Routine 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) Expected: 12/05/2024, Expires: 03/06/2025 [facility] Comment on above: Expected: 12/05/2024, Expires: Start: 12-05-2024 End: 03-06-2025 Hemoglobin A1c in Blood HEMOGLOBIN A1C Lab Routine 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) Expected: 12/05/2024, Expires: 03/06/2025 [facility] Work Phone: Comment on above: Expected: 12/05/2024, Expires: Start: 12-05-2024 End: 03-06-2025 Lipid 1996 panel - Serum or Plasma LIPID PANEL BASIC Lab Routine Dyslipidemia (high LDL; low HDL) Expected: 12/05/2024, Expires: 03/06/2025 [facility] Comment on above: Expected: 12/05/2024, Expires: Start: 12-05-2024 End: 03-06-2025 Thyrotropin [Units/volume] in Serum or Plasma THYROID STIMULATING HORMONE Lab Routine Multiple thyroid nodules Expected: 12/05/2024, Expires: 03/06/2025 [facility] Comment on above: Expected: 12/05/2024, Expires: Start: 12-05-2024 End: 03-06-2025 Thyroxine (T4) free [Mass/volume] in Serum or Plasma T4 FREE/FREE THYROXINE Lab Routine Multiple thyroid nodules Expected: 12/05/2024, Expires: 03/06/2025 [facility] Comment on above: Expected: 12/05/2024, Expires: Start: 12-05-2024 End: 12-05-2024 Patient encounter procedure 12/05/2024 9:00 AM EST Office Visit [facility] [address] [facility] [place] [address] Rishi Vasquez DO [address] [facility] [place] [address] 6 month follow up [facility] [place] Comment on above: 6 month follow up Start: 11-30-2024 Complete blood count Hemoglobin/Hematocrit [facility] Start: 11-30-2024 Creatinine measurement Serum Creatinine [facility] Start: 11-30-2024 Hemoglobin A1c measurement HbA1C [facility] Start: 11-30-2024 Hepatitis B surface antibody level LDL Cholesterol [facility] Start: 11-19-2024 Medicare Replaced By [facility] Annual Wellness Visit Medicare Advantage Annual Wellness Visit [facility] Start: 11-15-2024 Glaucoma screening Dilated Retinal Exam [facility] Start: 09-05-2024 End: 09-05-2024 Patient encounter procedure 09/05/2024 9:20 AM EDT Immunization [facility] [address] [place] [address] [place], Immunization Clinic Nurse [address] [place] [id number] FLU SHOT [facility] [place] Comment on above: FLU SHOT Start: 07-20-2024 Covid-19 Vaccine ( season) Covid-19 Vaccine ( season) [facility] Start: 07-20-2024 Covid-19 Vaccine ( season) Covid-19 Vaccine ( season) [facility] Start: 07-20-2024 Influenza vaccination Influenza Vaccine (#1) [facility] Start: 06-04-2024 3 comp foot exam completed DIABETIC FOOT EXAM [facility] Start: 06-04-2024 ANNUAL PCP TEAM CHRONIC DISEASE VISIT ANNUAL PCP TEAM CHRONIC DISEASE VISIT [facility] Start: 06-04-2024 BP CONTROLLED (<130/80) BP CONTROLLED (<130/80) [facility] Start: 06-04-2024 Diabetic foot examination Diabetic Foot Exam [facility] Start: 06-04-2024 End: 06-04-2024 Patient encounter procedure 06/04/2024 9:40 AM EDT Office Visit [facility] [place] [address] [place] [address] Rishi Vasquez DO [address] [address] 6 month follow up [facility] Comment on above: 6 month follow up Start: 06-03-2024 End: 06-03-2024 Patient encounter procedure 06/03/2024 9:30 AM EDT Appointment Mammogram [address] [address] Encounter for screening mammogram for malignant neoplasm of breast [Z12.31] Mammogram Comment on above: Encounter for screening mammogram for ma lignant neoplasm of breast [Z12.31] Start: 05-30-2024 End: 08-29-2024 25-hydroxyvitamin D3 [Mass/volume] in Serum or Plasma VITAMIN D 25 HYDROXY Lab Routine Vitamin D deficiency Expected: 05/30/2024 (Approximate), Expires: 08/29/2024 [facility] Comment on above: Expected: 05/30/2024 (Approximate), Expi res: 08/29/2024 Start: 05-30-2024 End: 08-29-2024 CBC W Auto Differential panel - Blood COMPLETE BLOOD COUNT AND DIFFERENTIAL Lab Routine Essential hypertension Fatigue, unspecified type Expected: 05/30/2024 (Approximate), Expires: 08/29/2024 [facility] Comment on above: Expected: 05/30/2024 (Approximate), Expi res: 08/29/2024 Start: 05-30-2024 End: 08-29-2024 Comprehensive metabolic 2000 panel - Serum or Plasma COMPREHENSIVE METABOLIC PANEL Lab Routine Essential hypertension 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) CKD stage G3b/A1, GFR 30-44 and albumin creatinine ratio <30 mg/g (HCC) Dyslipidemia (high LDL; low HDL) Expected: 05/30/2024 (Approximate), Expires: 08/29/2024 [facility] Comment on above: Expected: 05/30/2024 (Approximate), Expi res: 08/29/2024 Start: 05-30-2024 End: 08-29-2024 Hemoglobin A1c in Blood HEMOGLOBIN A1C Lab Routine 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) Expected: 05/30/2024 (Approximate), Expires: 08/29/2024 [facility] Comment on above: Expected: 05/30/2024 (Approximate), Expi res: 08/29/2024 Start: 05-30-2024 Hemoglobin A1c measurement HbA1C [facility] Start: 05-30-2024 HEMOGLOBIN/HEMATOCRIT HEMOGLOBIN/HEMATOCRIT [facility] Start: 05-30-2024 Hepatitis B screening URINE ALBUMIN:CREATININE RATIO [facility] Start: 05-30-2024 Hepatitis B surface antibody level LDL CHOLESTEROL [facility] Start: 05-30-2024 End: 08-29-2024 Lipid 1996 panel - Serum or Plasma LIPID PANEL BASIC Lab Routine Essential hypertension 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) Dyslipidemia (high LDL; low HDL) Expected: 05/30/2024 (Approximate), Expires: 08/29/2024 [facility] Work Phone: Comment on above: Expected: 05/30/2024 (Approximate), Expi res: 08/29/2024 Start: 05-30-2024 SERUM CREATININE SERUM CREATININE [facility] Start: 05-30-2024 End: 08-29-2024 Thyrotropin [Units/volume] in Serum or Plasma THYROID STIMULATING HORMONE Lab Routine Multiple thyroid nodules Low TSH level Fatigue, unspecified type Expected: 05/30/2024 (Approximate), Expires: 08/29/2024 [facility] Comment on above: Expected: 05/30/2024 (Approximate), Expi res: 08/29/2024 Start: 05-30-2024 End: 08-29-2024 Thyroxine (T4) free [Mass/volume] in Serum or Plasma T4 FREE/FREE THYROXINE Lab Routine Multiple thyroid nodules Low TSH level Fatigue, unspecified type Expected: 05/30/2024 (Approximate), Expires: 08/29/2024 [facility] Comment on above: Expected: 05/30/2024 (Approximate), Expi res: 08/29/2024 Start: 05-30-2024 End: 08-29-2024 Triiodothyronine (T3) Free [Mass/volume] in Serum or Plasma T3, FREE Lab Routine Multiple thyroid nodules Low TSH level Fatigue, unspecified type Expected: 05/30/2024 (Approximate), Expires: 08/29/2024 [facility] Comment on above: Expected: 05/30/2024 (Approximate), Expi res: 08/29/2024 Start: 05-30-2024 End: 05-30-2024 ambulatory 05/30/2024 8:00 AM EDT Results Only [facility] [address] [place] [address] [facility] Start: 05-29-2024 Mammography [facility] Start: 05-29-2024 Screening for malignant neoplasm of breast Mammogram Screening [facility] Start: 04-16-2024 End: 04-16-2024 ambulatory 04/16/2024 4:45 PM EDT OT/PT/Speech Visit [facility] [address] [place] [address] Anselmo Marr, PT [address] [place] [address] test [facility] Comment on above: test Start: 03-25-2024 End: 03-25-2024 ambulatory 03/25/2024 9:30 AM EDT OT/PT/Speech Visit [facility] [address] [place] [address] Keisha Guzman, [employer] [address] [place] [address] M54.50,G89.29 (ICD-10-CM) - Chronic midline low back pain without sciatica [facility] Comment on above: M54.50,G89.29 (ICD-10-CM) - Chronic midl ine low back pain without sciatica Start: 03-20-2024 End: 03-20-2024 ambulatory 03/20/2024 10:00 AM EDT OT/PT/Speech Visit [facility] [address] [place] [address] Anselmo Marr, PT [address] [place] [address] M54.50,G89.29 (ICD-10-CM) - Chronic midline low back pain without sciatica [facility] Comment on above: M54.50,G89.29 (ICD-10-CM) - Chronic midl ine low back pain without sciatica Start: 12-14-2023 HEMOGLOBIN/HEMATOCRIT HEMOGLOBIN/HEMATOCRIT [facility] Start: 12-14-2023 SERUM CREATININE SERUM CREATININE [facility] Start: 12-05-2023 ANNUAL PCP TEAM CHRONIC DISEASE VISIT ANNUAL PCP TEAM CHRONIC DISEASE VISIT [facility] Start: 12-05-2023 BP CONTROLLED (<130/80) BP CONTROLLED (<130/80) [facility] Start: 11-30-2023 Hemoglobin A1c/Hemoglobin.total in Blood HBA1C [facility] Start: 08-31-2023 HEMOGLOBIN/HEMATOCRIT HEMOGLOBIN/HEMATOCRIT [facility] Start: 08-31-2023 Hepatitis B surface antibody level LDL CHOLESTEROL [facility] Start: 08-31-2023 SERUM CREATININE SERUM CREATININE [facility] Start: 08-16-2023 Anaerobic Culture Anaerobic Culture [facility] Start: 07-20-2023 Covid-19 Vaccine () Covid-19 Vaccine () [facility] Start: 07-20-2023 Influenza vaccination [facility] Start: 06-13-2023 Hemoglobin A1c/Hemoglobin.total in Blood HBA1C [facility] Start: 06-05-2023 Mammography MAMMOGRAM [facility] Start: 06-04-2023 End: 08-04-2023 Bacteria identified in Urine by Culture [facility] Work Phone: Comment on above: Expected: 06/04/2023, Expires: 3 Start: 05-31-2023 ANNUAL PCP TEAM CHRONIC DISEASE VISIT ANNUAL PCP TEAM CHRONIC DISEASE VISIT [facility] Start: 05-31-2023 BP CONTROLLED (<130/80) BP CONTROLLED (<130/80) [facility] Start: 05-16-2023 3 comp foot exam completed DIABETIC FOOT EXAM [facility] Start: 05-08-2023 Hepatitis C antibody, confirmatory test DILATED RETINAL EXAM [facility] Start: 04-24-2023 Urine microalbumin profile [facility] Start: 03-07-2023 SERUM CREATININE SERUM CREATININE [facility] Start: 03-01-2023 Hemoglobin A1c/Hemoglobin.total in Blood HBA1C [facility] Start: 02-27-2023 End: 04-29-2023 ALBUMIN/CREAT RATIO RND UR ALBUMIN/CREAT RATIO RND UR Lab Routine 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) Expected: 02/27/2023, Expires: 04/29/2023 [facility] Work Phone: Comment on above: Expected: 02/27/2023, Expires: 3 Start: 02-23-2023 HEMOGLOBIN/HEMATOCRIT HEMOGLOBIN/HEMATOCRIT [facility] Start: 02-23-2023 Hepatitis B surface antibody level LDL CHOLESTEROL [facility] Start: 12-05-2022 End: 02-04-2023 CBC W Auto Differential panel - Blood CBC + DIFF Lab Routine Dizziness Biceps rupture, proximal, left, initial encounter Expected: 12/05/2022, Expires: 02/04/2023 [facility] Work Phone: Comment on above: Expected: 12/05/2022, Expires: 3 Start: 12-05-2022 End: 02-04-2023 Comprehensive metabolic 2000 panel - Serum or Plasma COMP METABOLIC PANEL Lab Routine Dizziness Biceps rupture, proximal, left, initial encounter Expected: 12/05/2022, Expires: 02/04/2023 [facility] Work Phone: Comment on above: Expected: 12/05/2022, Expires: 3 Start: 12-05-2022 End: 02-04-2023 Creatine kinase [Enzymatic activity/volume] in Serum or Plasma CK CREATINE KINASE Lab Routine Dizziness Biceps rupture, proximal, left, initial encounter Expected: 12/05/2022, Expires: 02/04/2023 [facility] Work Phone: Comment on above: Expected: 12/05/2022, Expires: 3 Start: 12-05-2022 End: 02-04-2023 Hemoglobin A1c in Blood HGB A1C Lab Routine 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) Expected: 12/05/2022, Expires: 02/04/2023 [facility] Work Phone: Comment on above: Expected: 12/05/2022, Expires: 3 Start: 12-05-2022 End: 02-04-2023 Magnesium [Mass/volume] in Serum or Plasma MAGNESIUM BLD Lab Routine Dizziness Biceps rupture, proximal, left, initial encounter Expected: 12/05/2022, Expires: 02/04/2023 [facility] Work Phone: Comment on above: Expected: 12/05/2022, Expires: 3 Start: 12-05-2022 End: 02-04-2023 Thyrotropin [Units/volume] in Serum or Plasma TSH BLD Lab Routine Dizziness Expected: 12/05/2022, Expires: 02/04/2023 [facility] Work Phone: Comment on above: Expected: 12/05/2022, Expires: 3 Start: 12-05-2022 End: 02-04-2023 Thyroxine (T4) free [Mass/volume] in Serum or Plasma T4 FREE/FREE THYROX Lab Routine Dizziness Expected: 12/05/2022, Expires: 02/04/2023 [facility] Work Phone: Comment on above: Expected: 12/05/2022, Expires: 3 Start: 12-02-2022 ANNUAL PCP TEAM CHRONIC DISEASE VISIT ANNUAL PCP TEAM CHRONIC DISEASE VISIT [facility] Start: 12-01-2022 Hemoglobin A1c/Hemoglobin.total in Blood HBA1C [facility] Start: 11-28-2022 Hepatitis B screening URINE ALBUMIN:CREATININE RATIO [facility] Start: 10-07-2022 End: 12-07-2022 Thyrotropin [Units/volume] in Serum or Plasma TSH BLD Lab Routine Low TSH level Abnormal thyroid blood test Borderline abnormal thyroid function test Expected: 10/07/2022, Expires: 12/07/2022 [facility] Work Phone: Comment on above: Expected: 10/07/2022, Expires: 3 Start: 10-07-2022 End: 12-07-2022 Thyroxine (T4) free [Mass/volume] in Serum or Plasma T4 FREE/FREE THYROX Lab Routine Low TSH level Abnormal thyroid blood test Borderline abnormal thyroid function test Expected: 10/07/2022, Expires: 12/07/2022 [facility] Work Phone: Comment on above: Expected: 10/07/2022, Expires: 3 Start: 10-07-2022 End: 12-07-2022 Triiodothyronine (T3) Free [Mass/volume] in Serum or Plasma T3 FREE BLD Lab Routine Low TSH level Abnormal thyroid blood test Borderline abnormal thyroid function test Expected: 10/07/2022, Expires: 12/07/2022 [facility] Work Phone: Comment on above: Expected: 10/07/2022, Expires: 3 Start: 08-31-2022 End: 10-31-2022 25-hydroxyvitamin D3 [Mass/volume] in Serum or Plasma VITAMIN D 25 HYDROXY Lab Routine Vitamin D deficiency Expected: 08/31/2022, Expires: 10/31/2022 [facility] Work Phone: Comment on above: Expected: 08/31/2022, Expires: 2 Start: 08-31-2022 End: 10-31-2022 CBC panel - Blood by Automated count CBC Lab Routine 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) Stage 3 chronic kidney disease, unspecified whether stage 3a or 3b CKD (HCC) Essential hypertension Dyslipidemia (high LDL; low HDL) Expected: 08/31/2022, Expires: 10/31/2022 [facility] Work Phone: Comment on above: Expected: 08/31/2022, Expires: 2 Start: 08-31-2022 End: 10-31-2022 Cobalamin (Vitamin B12) [Mass/volume] in Serum or Plasma VITAMIN B12 BLOOD Lab Routine 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) Expected: 08/31/2022, Expires: 10/31/2022 [facility] Work Phone: Comment on above: Expected: 08/31/2022, Expires: 2 Start: 08-31-2022 End: 10-31-2022 Comprehensive metabolic 2000 panel - Serum or Plasma COMP METABOLIC PANEL Lab Routine 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) Expected: 08/31/2022, Expires: 10/31/2022 [facility] Work Phone: Comment on above: Expected: 08/31/2022, Expires: 2 Start: 08-31-2022 End: 10-31-2022 Hemoglobin A1c in Blood HGB A1C Lab Routine 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) Expected: 08/31/2022, Expires: 10/31/2022 [facility] Work Phone: Comment on above: Expected: 08/31/2022, Expires: 2 Start: 08-31-2022 End: 10-31-2022 Lipid 1996 panel - Serum or Plasma LIPID PANEL BASIC Lab Routine Dyslipidemia (high LDL; low HDL) Expected: 08/31/2022, Expires: 10/31/2022 [facility] Work Phone: Comment on above: Expected: 08/31/2022, Expires: 2 Start: 08-31-2022 End: 10-31-2022 Thyrotropin [Units/volume] in Serum or Plasma TSH BLD Lab Routine 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) Stage 3 chronic kidney disease, unspecified whether stage 3a or 3b CKD (HCC) Fatigue, unspecified type Expected: 08/31/2022, Expires: 10/31/2022 [facility] Work Phone: Comment on above: Expected: 08/31/2022, Expires: 2 Start: 08-25-2022 Hemoglobin A1c/Hemoglobin.total in Blood HBA1C [facility] Start: 07-20-2022 Influenza vaccination INFLUENZA (#1) [facility] Start: 07-14-2022 BP CONTROLLED (<130/80) BP CONTROLLED (<130/80) [facility] Start: 06-10-2022 Mammography MAMMOGRAM [facility] Start: 05-30-2022 3 comp foot exam completed DIABETIC FOOT EXAM [facility] Start: 04-26-2022 COVID-19 VACCINE (3 - Booster for Kellee series) COVID-19 VACCINE (3 - Booster for Kellee series) [facility] Start: 03-30-2022 Hepatitis C antibody, confirmatory test DILATED RETINAL EXAM [facility] Start: 02-21-2022 COVID-19 VACCINE (3 - Booster for Kellee series) COVID-19 VACCINE (3 - Booster for Kellee series) [facility] Start: 01-20-2022 Colonoscopy flx dx w/collj spec when pfrmd DIAGNOSTIC COLONOSCOPY [facility] Work Phone: Start: 11-19-2021 ADVANCE DIRECTIVE DISCUSSION ADVANCE DIRECTIVE DISCUSSION [facility] Start: 12-17-2017 End: 12-17-2017 Appointment Appointment [facility] Work Phone: Start: 08-30-2017 End: 08-30-2017 Appointment Appointment [facility] Work Phone: Start: 06-11-2017 End: 06-11-2017 ISAC CHAU [facility] Work Phone: Start: 06-11-2017 End: 06-11-2017 Follow Up Appt 6 months Follow Up Appt 6 months [facility] Work Phone: Start: 06-11-2017 End: 06-11-2017 Appointment Appointment [facility] Work Phone: Start: 06-11-2017 End: 06-11-2017 ISAC CHAU [facility] Work Phone: Start: 06-11-2017 End: 06-11-2017 Follow Up Appt 6 months Follow Up Appt 6 months [facility] Work Phone: Start: 06-04-2017 End: 06-04-2017 Appointment Appointment [facility] Work Phone: Start: 05-04-2017 End: 05-04-2017 Thyroid stimulating hormone (TSH) *TSH [facility] Work Phone: Start: 05-04-2017 End: 05-04-2017 Thyroxine (T4) free *T4 free [facility] Work Phone: Start: 05-04-2017 End: 05-04-2017 Triiodothyronine (T3) free *T3-Free [facility] Work Phone: Start: 05-04-2017 End: 05-04-2017 Thyroid stimulating hormone (TSH) *TSH [facility] Work Phone: Start: 05-04-2017 End: 05-04-2017 Thyroxine (T4) free *T4 free [facility] Work Phone: Start: 05-04-2017 End: 05-04-2017 Triiodothyronine (T3) free *T3-Free [facility] Work Phone: Start: 05-02-2017 End: 05-02-2017 *BMP *BMP [facility] Work Phone: Start: 05-02-2017 End: 05-02-2017 *CBC with Differential *CBC with Differential [facility] Work Phone: Start: 05-02-2017 End: 05-02-2017 Appointment Appointment [facility] Work Phone: Start: 05-02-2017 End: 05-02-2017 *BMP *BMP [facility] Work Phone: Start: 05-02-2017 End: 05-02-2017 *CBC with Differential *CBC with Differential [facility] Work Phone: Start: 04-23-2017 End: 04-23-2017 C reactive protein (hsCRP) *CRP - C-Reative Protein [facility] Work Phone: Start: 04-23-2017 End: 04-23-2017 Erythrocyte sedimentation rate *Sedimentation Rate (ESR) [facility] Work Phone: Start: 04-23-2017 End: 04-23-2017 C reactive protein (hsCRP) *CRP - C-Reative Protein [facility] Work Phone: Start: 04-23-2017 End: 04-23-2017 Erythrocyte sedimentation rate *Sedimentation Rate (ESR) [facility] Work Phone: Start: 02-19-2017 End: 02-21-2017 C reactive protein (hsCRP) *CRP - C-Reative Protein [facility] Work Phone: Start: 02-19-2017 End: 02-21-2017 Erythrocyte sedimentation rate *Sedimentation Rate (ESR) [facility] Work Phone: Start: 02-19-2017 End: 02-21-2017 C reactive protein (hsCRP) *CRP - C-Reative Protein [facility] Work Phone: Start: 02-19-2017 End: 02-21-2017 Erythrocyte sedimentation rate *Sedimentation Rate (ESR) [facility] Work Phone: Start: 02-06-2017 End: 02-07-2017 Thyroid stimulating hormone (TSH) *TSH [facility] Work Phone: Start: 02-06-2017 End: 02-08-2017 Thyroperoxidase antibody *TPO Thyroid Peroxidase Antibodies [facility] Work Phone: Start: 02-06-2017 End: 02-07-2017 Thyroxine (T4) free *T4 free [facility] Work Phone: Start: 02-06-2017 End: 02-07-2017 Triiodothyronine (T3) free *T3-Free [facility] Work Phone: Start: 02-06-2017 End: 02-07-2017 Thyroid stimulating hormone (TSH) *TSH [facility] Work Phone: Start: 02-06-2017 End: 02-08-2017 Thyroperoxidase antibody *TPO Thyroid Peroxidase Antibodies [facility] Work Phone: Start: 02-06-2017 End: 02-07-2017 Thyroxine (T4) free *T4 free [facility] Work Phone: Start: 02-06-2017 End: 02-07-2017 Triiodothyronine (T3) free *T3-Free [facility] Work Phone: Start: 01-24-2017 End: 01-24-2017 Bacterica wound culture *Culture and Sensitivity, wound [facility] Work Phone: Start: 01-24-2017 End: 01-24-2017 Bacterica wound culture *Culture and Sensitivity, wound [facility] Work Phone: Start: 01-08-2017 End: 01-15-2017 *BMP *BMP [facility] Work Phone: Start: 01-08-2017 End: 01-15-2017 *CBC with Differential *CBC with Differential [facility] Work Phone: Start: 01-08-2017 End: 01-15-2017 C reactive protein (hsCRP) *CRP - C-Reative Protein [facility] Work Phone: Start: 01-08-2017 End: 01-15-2017 Erythrocyte sedimentation rate *Sedimentation Rate (ESR) [facility] Work Phone: Start: 01-08-2017 End: 01-15-2017 Mri lower extrem oth/thn jt w/o contr matrl MRI Non Joint Lower Extremity w/o [facility] Work Phone: Start: 01-08-2017 End: 01-15-2017 *BMP *BMP [facility] Work Phone: Start: 01-08-2017 End: 01-15-2017 *CBC with Differential *CBC with Differential [facility] Work Phone: Start: 01-08-2017 End: 01-15-2017 C reactive protein (hsCRP) *CRP - C-Reative Protein [facility] Work Phone: Start: 01-08-2017 End: 01-15-2017 Erythrocyte sedimentation rate *Sedimentation Rate (ESR) [facility] Work Phone: Start: 01-08-2017 End: 01-15-2017 Mri lower extremity w/o dye MRI Non Joint Lower Extremity w/o [facility] Work Phone: Start: 01-04-2017 End: 01-04-2017 *CBC with Differential *CBC with Differential [facility] Work Phone: Start: 01-04-2017 End: 01-04-2017 Bacterica wound culture *Culture and Sensitivity, wound [facility] Work Phone: Start: 01-04-2017 End: 01-04-2017 C reactive protein (hsCRP) *CRP - C-Reative Protein [facility] Work Phone: Start: 01-04-2017 End: 01-04-2017 Erythrocyte sedimentation rate *Sedimentation Rate (ESR) [facility] Work Phone: Start: 01-04-2017 End: 01-04-2017 MRSA presence *MRSAD - M R Staph Aureus DNA by PCR [facility] Work Phone: Start: 01-04-2017 End: 01-04-2017 Radex foot complete minimum 3 views X-Ray, Foot [facility] Work Phone: Start: 01-04-2017 End: 01-04-2017 *CBC with Differential *CBC with Differential [facility] Work Phone: Start: 01-04-2017 End: 01-04-2017 Bacterica wound culture *Culture and Sensitivity, wound [facility] Work Phone: Start: 01-04-2017 End: 01-04-2017 C reactive protein (hsCRP) *CRP - C-Reative Protein [facility] Work Phone: Start: 01-04-2017 End: 01-04-2017 Erythrocyte sedimentation rate *Sedimentation Rate (ESR) [facility] Work Phone: Start: 01-04-2017 End: 01-04-2017 MRSA presence *MRSAD - M R Staph Aureus DNA by PCR [facility] Work Phone: Start: 01-04-2017 End: 01-04-2017 X-ray exam of foot X-Ray, Foot [facility] Work Phone: Start: 01-01-2017 End: 01-02-2017 *CBC with Differential *CBC with Differential [facility] Work Phone: Start: 01-01-2017 End: 01-02-2017 C reactive protein (hsCRP) *CRP - C-Reative Protein [facility] Work Phone: Start: 01-01-2017 End: 01-02-2017 Erythrocyte sedimentation rate *Sedimentation Rate (ESR) [facility] Work Phone: Start: 01-01-2017 End: 01-02-2017 *CBC with Differential *CBC with Differential [facility] Work Phone: Start: 01-01-2017 End: 01-02-2017 C reactive protein (hsCRP) *CRP - C-Reative Protein [facility] Work Phone: Start: 01-01-2017 End: 01-02-2017 Erythrocyte sedimentation rate *Sedimentation Rate (ESR) [facility] Work Phone: Start: 12-20-2016 End: 12-20-2016 Radex foot complete minimum 3 views X-Ray, Foot [facility] Work Phone: Start: 12-20-2016 End: 12-20-2016 X-ray exam of foot X-Ray, Foot [facility] Work Phone: Start: 12-18-2016 End: 12-20-2016 *CDIF - Clostridium Diff. Toxin Stool *CDIF - Clostridium Diff. Toxin Stool [facility] Work Phone: Start: 12-18-2016 End: 12-20-2016 *CDIF - Clostridium Diff. Toxin Stool *CDIF - Clostridium Diff. Toxin Stool [facility] Work Phone: Start: 12-13-2016 End: 12-15-2016 Radex foot complete minimum 3 views X-Ray, Foot [facility] Work Phone: Start: 12-13-2016 End: 12-15-2016 X-ray exam of foot X-Ray, Foot [facility] Work Phone: Start: 12-05-2016 End: 12-05-2016 ISAC CHAU [facility] Work Phone: Start: 12-05-2016 End: 12-05-2016 Follow Up Appt 6 months Follow Up Appt 6 months [facility] Work Phone: Start: 12-05-2016 End: 12-05-2016 DJN DJN [facility] Work Phone: Start: 12-05-2016 End: 12-05-2016 Follow Up Appt 6 months Follow Up Appt 6 months [facility] Work Phone: Start: 11-22-2016 End: 11-23-2016 *IGSUB IMMUN Subclas-IGG1,2,3 &4 *IGSUB IMMUN Subclas-IGG1,2,3 &4 [facility] Work Phone: Start: 11-22-2016 End: 11-29-2016 Debridement subcutaneous tissue 20 sq cm/< Debridement, subcutaneous tissue first 20 sq cm or less [facility] Work Phone: Start: 11-22-2016 End: 11-23-2016 *IGSUB IMMUN Subclas-IGG1,2,3 &4 *IGSUB IMMUN Subclas-IGG1,2,3 &4 [facility] Work Phone: Start: 11-22-2016 End: 11-29-2016 Dalila subq tissue 20 sq cm/< Debridement, subcutaneous tissue first 20 sq cm or less [facility] Work Phone: Start: 09-22-2016 End: 09-29-2016 Debridement subcutaneous tissue 20 sq cm/< Debridement, subcutaneous tissue first 20 sq cm or less [facility] Work Phone: Start: 09-22-2016 End: 09-29-2016 Dalila subq tissue 20 sq cm/< Debridement, subcutaneous tissue first 20 sq cm or less [facility] Work Phone: Start: 11-30-2015 End: 11-30-2015 DJN DJN [facility] Work Phone: Start: 11-30-2015 End: 11-30-2015 Follow Up Appt 1 year Follow Up Appt 1 year [facility] Work Phone: Start: 11-30-2015 End: 11-30-2015 DJN DJN [facility] Work Phone: Start: 11-30-2015 End: 11-30-2015 Follow Up Appt 1 year Follow Up Appt 1 year [facility] Work Phone: Start: 05-25-2015 End: 05-25-2015 ISAC CHAU [facility] Work Phone: Start: 05-25-2015 End: 05-25-2015 Ecg routine ecg w/least 12 lds w/i&r EKG (In office) [facility] Work Phone: Start: 05-25-2015 End: 05-25-2015 Follow Up Appt 6 months Follow Up Appt 6 months [facility] Work Phone: Start: 05-25-2015 End: 05-25-2015 ISAC CHAU [facility] Work Phone: Start: 05-25-2015 End: 05-25-2015 Electrocardiogram, complete EKG (In office) [facility] Work Phone: Start: 05-25-2015 End: 05-25-2015 Follow Up Appt 6 months Follow Up Appt 6 months [facility] Work Phone: Start: 01-04-2015 End: 01-04-2015 Vascular Surgery Vascular Surgery Kwaku Moscoso, [address], [address], [place], [address] [facility] Work Phone: Start: 01-04-2015 End: 01-04-2015 Vascular Surgery Vascular Surgery Kwaku Moscoso, [facility], [address] [place], [address] [facility] Work Phone: Start: 12-29-2014 End: 05-19-2015 *BMP *BMP [facility] Work Phone: Start: 12-29-2014 End: 12-29-2014 Ct angiography neck w/contrast/noncontrast CTA Neck [facility] Work Phone: Start: 12-29-2014 End: 12-29-2014 TENZINN ISAC [facility] Work Phone: Start: 12-29-2014 End: 12-29-2014 Follow Up Appt 6 months Follow Up Appt 6 months [facility] Work Phone: Start: 12-29-2014 End: 05-19-2015 *BMP *BMP [facility] Work Phone: Start: 12-29-2014 End: 12-29-2014 Ct angiography, neck CTA Neck [facility] Work Phone: Start: 12-29-2014 End: 12-29-2014 ISAC CHAU [facility] Work Phone: Start: 12-29-2014 End: 12-29-2014 Follow Up Appt 6 months Follow Up Appt 6 months [facility] Work Phone: Start: 06-12-2014 End: 06-12-2014 24 hour holter monitor 24 hour holter monitor [facility] Work Phone: Start: 06-12-2014 End: 06-15-2014 Carotid duplex Carotid duplex [facility] Work Phone: Start: 06-12-2014 End: 06-12-2014 Follow Up Appt Other Follow Up Appt Other [facility] Work Phone: Start: 06-12-2014 End: 06-12-2014 24 hour holter monitor 24 hour holter monitor [facility] Work Phone: Start: 06-12-2014 End: 06-15-2014 Carotid duplex Carotid duplex [facility] Work Phone: Start: 06-12-2014 End: 06-12-2014 Follow Up Appt Other Follow Up Appt Other [facility] Work Phone: Start: 02-02-2014 End: 02-02-2014 Cardiac Rehab Cardiac Rehab [facility] Work Phone: Start: 02-02-2014 End: 02-02-2014 ISAC DAVEN [facility] Work Phone: Start: 02-02-2014 End: 02-02-2014 Follow Up Appt 1 year Follow Up Appt 1 year [facility] Work Phone: Start: 02-02-2014 End: 02-02-2014 Cardiac Rehab Cardiac Rehab [facility] Work Phone: Start: 02-02-2014 End: 02-02-2014 TENZINShruthi TENZINShruthi [facility] Work Phone: Start: 02-02-2014 End: 02-02-2014 Follow Up Appt 1 year Follow Up Appt 1 year [facility] Work Phone: Start: 01-12-2014 End: 01-12-2014 *BMP *BMP [facility] Work Phone: Start: 01-12-2014 End: 01-12-2014 CBC W Auto Differential panel - Blood *CBC without Diff [facility] Work Phone: Start: 01-12-2014 End: 01-23-2014 Chest x-ray X-Ray, Chest, PA & Lateral [facility] Work Phone: Start: 01-12-2014 End: 01-12-2014 TENZINShruthi TENZINShruthi [facility] Work Phone: Start: 01-12-2014 End: 01-12-2014 Follow Up Appt 1 year Follow Up Appt 1 year [facility] Work Phone: Start: 01-12-2014 End: 01-12-2014 INR Coag RelTime (PPP) *PT/INR [facility] Work Phone: Start: 01-12-2014 End: 01-12-2014 Left Heart Cath Left Heart Cath [facility] Work Phone: Start: 01-12-2014 End: 01-12-2014 *BMP *BMP [facility] Work Phone: Start: 01-12-2014 End: 01-12-2014 CBC W Auto Differential panel - Blood *CBC without Diff [facility] Work Phone: Start: 01-12-2014 End: 01-23-2014 Chest x-ray X-Ray, Chest, PA & Lateral [facility] Work Phone: Start: 01-12-2014 End: 01-12-2014 Coagulation factor induced.INR assay in platelet poor plasma *PT/INR [facility] Work Phone: Start: 01-12-2014 End: 01-12-2014 DJN DJN [facility] Work Phone: Start: 01-12-2014 End: 01-12-2014 Follow Up Appt 1 year Follow Up Appt 1 year [facility] Work Phone: Start: 01-12-2014 End: 01-12-2014 Left Heart Cath Left Heart Cath [facility] Work Phone: Start: 2012 Hepatitis B Vaccine (1 of 3 - Risk 3-dose series) Hepatitis B Vaccine (1 of 3 - Risk 3-dose series) [facility] Start: 2012 RSV Vaccine (1 - 1-dose 60+ series) RSV Vaccine (1 - 1-dose 60+ series) [facility] Start: 2002 Influenza vaccination LUNG CANCER SCREENING [facility] Start: 2002 Screening for malignant neoplasm of lung Lung Cancer Screening [facility] Start: 2002 SHINGRIX VACCINE (1 of 2) SHINGRIX VACCINE (1 of 2) [facility] Start: 1997 COLOGUARD (FIT-DNA) COLOGUARD (FIT-DNA) [facility] Start: [address] COLONOGRAPHY [facility] Start: 1997 FECAL OCCULT BLOOD FECAL OCCULT BLOOD [facility] Start: 1997 Screening for malignant neoplasm of colon [facility] Start: 1997 SIGMOIDOSCOPY SIGMOIDOSCOPY [facility] Start: 1970 Anxiety Screening Anxiety Screening [facility] Bacteria identified in Unspecified specimen by Anaerobe culture [facility] Bacteria identified in Urine by Culture URINE CULTURE Microbiology Routine Acute cystitis with hematuria Ordered: 09/23/2022 [facility] Work Phone: Comment on above: Ordered: 09/23/2022 DBT Breast - bilater al screening ALEJANDRO SCREENING W BEN Radiology Routine Encounter for screening mammogram for malignant neoplasm of breast 06/03/2024 9:42 AM EDT [facility] Work Phone: End: 01-04-2026 DBT Breast - bilateral screening ALEJANDRO SCREENING W BEN Radiology Routine Encounter for screening mammogram for malignant neoplasm of breast 1 Occurrences starting 12/05/2024 until 01/04/2026 [facility] Work Phone: Comment on above: 1 Occurrences starting 12/05/2024 until 01/04/2026 End: 07-05-2023 Diagnostic mammography computer-aided detcj uni ALEJANDRO DIAGNOSTIC RT Radiology Routine Abnormal mammogram 1 Occurrences starting 06/05/2022 until 07/05/2023 [facility] Work Phone: Comment on above: 1 Occurrences starting 06/05/2022 until 07/05/2023 End: 06-27-2024 ALEJANDRO DIAGNOSTIC RIGHT ALEJANDRO DIAGNOSTIC RIGHT Radiology Routine Abnormal mammogram 1 Occurrences starting 05/29/2023 until 06/27/2024 [facility] Work Phone: Comment on above: 1 Occurrences starting 05/29/2023 until 06/27/2024 End: 03-06-2024 ALEJANDRO SCREENING ALEJANDRO SCREENING Radiology Routine Encounter for screening mammogram for malignant neoplasm of breast 1 Occurrences starting 02/07/2023 until 03/06/2024 [facility] Work Phone: Comment on above: 1 Occurrences starting 02/07/2023 until 03/06/2024 NM Heart Views W str ess and W radionuclide IV [facility] Patient Education [facility] Work Phone: Patient referral [facility] Work Phone: Urine culture [facility] End: 06-27-2024 US BREAST LTD RIGHT US BREAST LTD RIGHT Radiology Routine Abnormal mammogram 1 Occurrences starting 05/29/2023 until 06/27/2024 [facility] Work Phone: Comment on above: 1 Occurrences starting 05/29/2023 until 06/27/2024 End: 07-05-2023 Us breast uni real time with image limited US BREAST LTD RT Radiology Routine Abnormal mammogram 1 Occurrences starting 06/05/2022 until 07/05/2023 [facility] Work Phone: Comment on above: 1 Occurrences starting 06/05/2022 until 07/05/2023 US Carotid arteries [facility] Work Phone: US Carotid arteries [facility] Carotid arteries [facility] End: 12-05-2023 US CAROTID ARTERIES [facility] US CAROTID ARTERIES [facility] Vascular Lab Routine Carotid atherosclerosis, bilateral 1 Occurrences starting 12/05/2022 until 12/05/2023 [facility] Work Phone: Comment on above: 1 Occurrences starting 12/05/2022 until 12/05/2023 Heart [facility] soft tissue head & neck real time imge docm US THYROID/PARATHYROID Radiology Routine Multiple thyroid nodules 12/20/2023 9:38 AM EST [facility] Work Phone: Wound microscopy, cu lture and sensitivities [facility] [place] Immunizations Immunization Date Immunization Notes Care Provider Lisa marie 09-05-2024 influenza, high dose seasonal, preservative-free Immunization [facility] Work Phone: [facility] 08-31-2023 influenza (HD-IIV4) vaccine, age 65+ yr, high dose, quadrivalent, PF (FLUZONE HIGH-DOSE) Immunization [facility] Work Phone: [facility] Work Phone: 08-31-2023 influenza virus vaccine, unspecified formulation Rishi Vasquez DO Work Phone: [facility] 06-04-2023 pneumococcal (PCV20) vaccine, 20 valent (PREVNAR 20) Rishi Vasquez DO Work Phone: [facility] Work Phone: 06-04-2023 pneumococcal Conjuga te, unspecified formulation Rishi Vasquez DO Work Phone: [facility] Work Phone: 09-09-2022 influenza, high-dose , quadrivalent vaccine (FLUZONE HIGH DOSE QUADRIVALENT) Immunization [facility] Work Phone: [facility] 09-09-2022 influenza virus vaccine, unspecified formulation Rishi Vasquez DO Work Phone: [facility] 09-10-2021 influenza, high-dose , quadrivalent vaccine (FLUZONE HIGH DOSE QUADRIVALENT) Dillon Violeta PROGRAMS DIRECTOR.[employer]OEMAKING FINISHER Work Phone: [facility] Work Phone: 09-10-2020 influenza, high-dose , quadrivalent vaccine (FLUZONE HIGH DOSE QUADRIVALENT) Dillon Violeta PROGRAMS DIRECTOR.[employer]OEMAKING FINISHER Work Phone: [facility] Work Phone: 09-02-2019 influenza, high dose seasonal, preservative-free Dillon Violeta PROGRAMS DIRECTOR.SHOEMAKING FINISHER Work Phone: [facility] Work Phone: 08-28-2018 influenza, high dose seasonal, preservative-free Dillon Violeta PROGRAMS DIRECTOR.[employer]OEMAKING FINISH[employer] Work Phone: [facility] Work Phone: 08-28-2018 pneumococcal polysaccharide vaccine, 23 valent Dillon Violeta PROGRAMS DIRECTOR.[employer]EMAKING FINISH[employer] Work Phone: [facility] Work Phone: 09-07-2017 influenza, high dose seasonal, preservative-free Dillon Violeta PROGRAMS DIRECTOR.SHOEMAKING FINISHER Work Phone: [facility] Work Phone: 09-01-2016 influenza, injectabl e, quadrivalent, preservative free Dr. Rishi Vasquez Work Phone: [facility] 09-01-2016 influenza, seasonal, injectable Dr. Rishi Vasquez Work Phone: [facility] 09-11-2014 influenza, seasonal, injectable Dillon Violeta PROGRAMS DIRECTOR.[facility] Work Phone: [facility] Work Phone: 04-24-2013 tetanus toxoid, redu woody diphtheria toxoid, and acellular pertussis vaccine, adsorbed Dillon Violeta PROGRAMS DIRECTOR.SHOEMAKING FINISHER Work Phone: [facility] Work Phone: 01-03-2013 pneumococcal conjuga te vaccine, 13 valent Dillon Violeta PROGRAMS DIRECTOR.[facility] Work Phone: [facility] Work Phone: 12-20-2012 pneumococcal polysaccharide vaccine, 23 valent Dillon Violeta PROGRAMS DIRECTOR.[facility] Work Phone: [facility] Work Phone: Payers Date Payer Category Payer Self-pay [id number] 2022 [place] [id number] 2022 Medicare [id number] 2020 Unknown MMO MMO MEDICARE SUPPLEMENT [id number] 2020-Present [phone] [address] [place] [address] Indemnity [id number] 2020 Unknown [id number]. [id number] 2017 Medicare MEDICARE MEDICAR E A AND B [id number] 2017-Present [phone] [address] [address] [place] [address] Medicare [id number] 2017 Medicare [id number]. [id number] 2017 Private Health Insurance [facility] [id number] Medicare [id number] Unknown [id number] Unknown [id number] .1.175640.3.579.2. 462 Unknown [id number] .1.407875.3.579.2. 462 Unknown [id number] .1.616080.3.579.2. 462 Unknown [id number] ..1.117409.3.579.2. 462 Unknown [id number] ..1.457430.3.579.2. 462 Unknown [id number] 2.0.1.299028.3.579.2. 462 Unknown [id number] 2.0.1.720300.3.579.2. 462 Unknown [id number] 2..1.481430.3.579.2. 462 Unknown [id number] 2.16.840.1.070718.3.579.2. 462 Unknown [id number] 2.16.840.1.084640.3.579.2. 462 Unknown [id number] 2.16.840.1.530077.3.579.2. 462 Unknown [id number] 2.16.840.1.010543.3.579.2. 462 Unknown [id number] 2.16.840.1.421992.3.579.2. 462 Unknown [id number] 2.16.840.1.661322.3.579.2. 462 Unknown [id number] 2.16.840.1.272646.3.579.2. 462 Unknown [id number] 2.840.1.272114.3.579.2. 462 Unknown [id number] 2.16.840.1.959115.3.579.2. 462 Unknown [id number] 2.16.840.1.660769.3.579.2. 462 Unknown [id number] 2.16.840.1.947633.3.579.2. 462 Unknown [id number] 2.16.840.1.010328.3.579.2. 462 Unknown [id number] 2.16.840.1.259898.3.579.2. 462 Unknown [id number] 2.16.840.1.468784.3.579.2. 462 Unknown [id number] 2.16.840.1.135263.3.579.2. 462 Unknown [id number] 2.16.840.1.667610.3.579.2. 462 Unknown [id number] 2.16.840.1.693049.3.579.2. 462 Unknown [id number] 2.16.840.1.519224.3.579.2. 462 Unknown [id number] 2.16.840.1.880537.3.579.2. 462 Unknown [id number] 2.16.840.1.467108.3.579.2. 462 Unknown [id number] 2.16.840.1.078191.3.579.2. 462 Unknown [id number] 2.16.840.1.297013.3.579.2. 462 Unknown [id number] 2.16.840.1.646293.3.579.2. 462 Unknown [id number] 2.16.840.1.822885.3.579.2. 462 Unknown [id number] 2.16.840.1.296318.3.579.2. 462 Unknown [id number] 2.16.840.1.246205.3.579.2. 462 Unknown [id number] 2.16.840.1.829763.3.579.2. 462 Unknown [id number] 2.16.840.1.131197.3.579.2. 462 Unknown [id number] 2.16.840.1.978917.3.579.2. 462 Unknown [id number] 2.16.840.1.033482.3.579.2. 462 Unknown [id number] 2.16.840.1.770017.3.579.2. 462 Unknown [id number] 2.16.840.1.229872.3.579.2. 462 Unknown [id number] 2.16.840.1.832873.3.579.2. 462 Unknown [id number] 2.16.840.1.462331.3.579.2. 462 Unknown [id number] 2.16.840.1.368017.3.579.2. 462 Social History Date Type Detail Facility [facility] Work Phone: Start: 02-07-2022 End: 02-12-2024 Tobacco smoking status NHIS Unknown if ever smoked [facility] Start: 03-19-2021 None [facility] Start: 03-19-2021 Alone [facility] Start: 03-19-2021 Cigarettes [facility] Start: 1950 Sex Assigned At Female [facility] Start: 01-13-2013 End: 03-27-2025 Tobacco smoking status NHIS Ex-smoker [facility] Start: 12-20-1967 End: 12-20-2012 History of tobacco use Current smoker [facility] Start: 12-20-1967 End: 12-20-2012 History of tobacco use Cigarette Smoker [facility] Start: 01-13-2013 End: 09-05-2024 Cigarettes smoked current (pack per day) - Reported 0.5 [facility] Start: 01-13-2013 End: 03-27-2025 Tobacco use and exposure Smokeless tobacco non-user [facility] Start: 12-02-2021 End: 03-27-2025 Alcohol intake Current non-drinker of alcohol (finding) [facility] Start: 12-01-2021 End: 12-02-2022 History SDOH Alcohol Frequency 1 [facility] Start: 12-01-2021 History SDOH Alcohol Std Drinks 98 [facility] Start: 12-01-2021 End: 12-02-2022 History SDOH Social Connections Phone 5 [facility] Start: 12-01-2021 End: 12-02-2022 History SDOH Social Connections Protestant 2 [facility] Start: 12-01-2021 End: 12-02-2022 History SDOH Social Connections Living 4 [facility] Start: 12-01-2021 End: 12-02-2022 History SDOH Physical Activity MPS 6 [facility] Start: 11-26-2019 Education 12 [facility] Start: 02-25-2022 End: 08-15-2022 Exposure to SARS-CoV-2 (event) Not sure [facility] Work Phone: Start: 12-02-2022 History SDOH Alcohol Std Drinks 0 [facility] Start: 12-01-2022 End: 09-05-2024 Social connection and isolation panel [facility] Do you belong to any clubs or organizations such as rastafarian groups, unions, fraternal or athletic groups, or school groups? No [facility] Are you now , , , , never or living with a partner? [facility] How often to you hav e a drink containing alcohol? Never [facility] How many standard dr inks containing alcohol do you have on a typical day? Patient does not drink [facility] Do you feel stress - tense, restless, nervous, or anxious, or unable to sleep at night because your mind is troubled all the time - these days [OSQ] Only a little [facility] (I/We) worried whesusan er (my/our) food would run out before (I/we) got money to buy more. Never true [facility] Start: 08-26-2019 Gender identity Identifies as female gender (finding) [facility] Start: 08-16-2024 Sexual orientation Heterosexual (finding) [facility] Do you feel stress - tense, restless, nervous, or anxious, or unable to sleep at night because your mind is troubled all the time - these days [OSQ] Not at all [facility] Start: 02-17-2025 End: 03-07-2025 Sex Female (finding) [facility] Medical Equipment Procedure Code Equipment Code Equipment Original Text Equipment Identifier Dates [id number], [id number] Start: 02-15-2022 End: 06-04-2024 Comment on above: Test blood sugar(s) one times daily. Dx: Other DM Code E11.51 Insulin: No Use as instructed Goals Date Patient Goal Desired Activity /State Functional Status Date Assessment Result Facility 03-20-2025 Functional status Up ad praveen;[facility] Work Phone: 03-19-2025 Functional status Tolerates Activity [facility] Work Phone: 03-11-2025 Functional status Patient Activity [facility] Work Phone: 03-11-2025 Functional status Activity Abili ty With Assist of 1 [facility] Work Phone: 03-11-2025 Functional status Assistive Marisela Schneider [facility] Work Phone: 03-10-2025 Functional status Tolerates Activity [facility] Work Phone: 06-09-2015 Are you deaf, or do you have serious difficulty hearing No 06/09/2015 3:01 PM EDT Meka Baca RN No [facility] 06-09-2015 Are you blind, or do you have serious difficulty seeing, even when wearing glasses No 06/09/2015 3:01 PM EDT Meka Baca RN No [facility] 06-09-2015 Do you have serious difficulty walking or climbing stairs No 06/09/2015 3:01 PM EDT Meka Baca RN No [facility] 06-09-2015 Do you have difficul ty dressing or bathing No 06/09/2015 3:01 PM EDT Meka Baca RN No [facility] 06-09-2015 Because of a physica l, mental, or emotional condition, do you have difficulty doing errands alone such as visiting a physician's office or shopping No 06/09/2015 3:01 PM Meka Delgado RN No [facility] Mental Status Date Assessment Result Facility 03-20-2025 Cognitive function Voice/Name [facility] Work Phone: 03-11-2025 Cognitive function [facility] Work Phone: 01-20-2022 Cognitive function Voice/Name [facility] Work Phone: 06-09-2015 Because of a physica l, mental, or emotional condition, do you have serious difficulty concentrating, remembering, or making decisions No 06/09/2015 3:01 PM EDT Meka Baca RN No [facility] Clinical Notes 11-14-2017 to 05-07-2025 Telephone Encounter - Lebron Jacome RN - 05/07/2025 1:07 PM EDTTelephone Encounter - Lebron Jacome RN - 05/07/2025 1:07 PM EDTTelephone Encounter - Sara Solis RN - 05/07/2025 11:28 AM EDT Note Date & Type Note Facility 05-07-2025 Telephone encounter Note Pt phoned back and states she was able to get 5 days of glipizide from pharmacy. Pt asking pcp to change the medication since her insurance does not cover it. [facility] 05-07-2025 Miscellaneous Notes Pt phoned back and states she was able to get 5 days of glipizide from pharmacy. Pt asking pcp to change the medication since her insurance does not cover it. Called and left a detailed voicemail notifying patient of providers message. Clinic phone number was left for the patient to call back if she would like the provider to change her medication. Sara Solis RN Agree with below Rishi Vasquez DO Called pt and message left she can either ask the pharmacy to run the rx with a discount card or call back and ask the provider to change the medicine. Images from the original note were not included. This is the PA response. Close reason: Product not covered by this plan. Prior Authorization not available. Payer: [employer] [phone] Note from payer: This drug/product is not covered under the pharmacy benefit. Prior Authorization is not available. Electronic PA requested. Pt called in and reports she went in to [facility] and they told her that her insurance doesn't cover the Glipizide 5 mg tablets without a PA. Pt states she got them before and her insurance covered them. Pt states she paid out of pocket for 5 days worth of pills. Prior Authorization Documentation Prior authorization requested for the following medication: Medication: Glipizide Provider: Sushma Escobedo NP Insurance Company Name: [employer] Phone number:[phone] Patient ID number: [id number] Pharmacy Name: [facility] Telephone number: [phone] documented in this encounter [facility] 05-07-2025 Telephone encounter Note Called and left a detailed voicemail notifying patient of providers message. Clinic phone number was left for the patient to call back if she would like the provider to change her medication. Sara Solis RN [facility] 05-06-2025 Telephone encounter Note Agree with below Rishi Vasquez DO [facility] 05-06-2025 Telephone encounter Note Called pt and message left she can either ask the pharmacy to run the rx with a discount card or call back and ask the provider to change the medicine. [facility] 05-06-2025 Telephone encounter Note Images from the original note were not included. This is the PA response. Close reason: Product not covered by this plan. Prior Authorization not available. Payer: [employer] [phone] Note from payer: This drug/product is not covered under the pharmacy benefit. Prior Authorization is not available. [facility] 05-06-2025 Telephone encounter Note Electronic PA requested. [facility] 05-06-2025 Telephone encounter Note Pt called in and reports she went in to [facility] and they told her that her insurance doesn't cover the Glipizide 5 mg tablets without a PA. Pt states she got them before and her insurance covered them. Pt states she paid out of pocket for 5 days worth of pills. Prior Authorization Documentation Prior authorization requested for the following medication: Medication: Glipizide Provider: Sushma Escobedo NP Insurance Company Name: [employer]vantage [employer] Phone number:[phone] Patient ID number: [id number] Pharmacy Name: [facility] Telephone number: [phone] [facility] 04-30-2025 Instructions Fouzia Escobedo APRN.CNP - 04/30/2025 11:41 AM EDT Send me a blood sugar log in 2 weeks after taking the 10mg of glucotrol xl (5mg twice per day) Follow up as already scheduled with Dr Vasquez documented in this encounter [facility] 04-30-2025 Note HNO ID: [id number] Author: FOUZIA ESCOBEDO APRN.CNP Service: ? Author Type: Nurse Practitioner Type: Progress Notes Filed: 04/30/2025 12:26 Note Text: HISTORY OF PRESENT ILLNESS: Diabetes Mellitus: - Currently taking glipizide 5 mg daily, had stopped it but restarted it and taking daily since 04/16 - Monitors blood glucose levels four times daily (before breakfast, lunch, dinner, and bedtime) - Fasting blood glucose levels range from 121-164, before lunch and supper its ranging mostly in 200-300s, then at night it's usually upper 100s-200s - Noted higher blood glucose levels after consuming Special K cereal with 1% milk Wounds bilateral feet being managed by podiatry - Home health nurse visits for wound dressing changes - Recent visit to nonprofit director Dr. Irene, who discussed potential surgery for wound debridement, right foot wound is improving -wound infections likely adding to increased blood sugar readings, currently doesn't have infection and not on antibiotics Prior encounters leading up to this visit: Initial reason for follow up and when starting on glipizide: 04/07 phone encounter- BLOOD GLUCOSE: Currently 140 fasting this morning. Patient reports that since coming home from the hospital her blood sugars have been elevated throughout the day. She reports that generally over 200. EX: 04/06/2025 mid-afternoon 440, Bedtime 279, and 04/07/2025 fasting 140. Patient reports that during TCU stay metformin was discontinued by Dr. Solomon d/t her kidney function. Patient forgot to ask about blood sugars at follow up hospital visit with Yumiko. Most recent phone encounter: 04/15 HAVE BEENTAKING THE GLIPIZED SINCE THE 16 OF APRIL AND HAVE NOT REALLY SEEN ANY IMPROVMENT IN THE BLOOD SUGARS.DEPENDING ON WHAT THEY ARE AT NIGHT, I GET UP IN THE MORNING AND TAKE IT. THIS MORNING IT WAS 177. I ATE A SMALL BOWL OF CEREAL(SPECIAL K WITH 13 GRAMS OD PROTEIN AND 1% MILK. I TOOK BLOOD SUGAR 2 HOURS LATER AND IT WAS 404. DON'T UNDERSTAND. SHOULD WE INCREASE THE DOSAGE. WILL AWAIT YOUR REPLY AND SUGGESTIONS. 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 Ch Frog Shaker, 90% blockage- unable to do stenting Diabetes mellitus type 2 in obese Diabetic feet (HCC) Gangrene (HCC) 2012 RIGHT FOOT Hypertension Mild non proliferative diabetic retinopathy (HCC) 06/11/2013 Both eyes, Dr. Ortiz [facility]-03/25/2020 left mild, right moderate Multiple thyroid nodules last US 01/2015 Peripheral artery disease due to Diabetes mellitus, Dr. Kwaku Moscoso Rotator cuff syndrome of left shoulder Dr. [facility] PAST SURGICAL HISTORY Procedure Laterality Date AMPUTATION TOE INTERPHALANGEAL JOINT 01-01-2013 left 5th toe due to diabetes gangrene ARTHROSCOPY KNEE DIAGNOSTIC W/WO SYNOVIAL BX SPX 12/31/13 Arthroscopy, knee lt COLONOSCOPY FLX DX W/COLLJ SPEC WHEN PFRMD 11-21-13 tubular adenomas, repeat in 3 years COLONOSCOPY FLX DX W/COLLJ SPEC WHEN PFRMD 10/25/2016 ESOPHAGOGASTRODUODENOSCOPY TRANSORAL DIAGNOSTIC 10/25/2016 EXC TUMOR SOFT TISS FOREARM AND/WRIST SUBQ 3+CM 09/08/14 Exc. right olecrenon dermal/SC mass FNA WITH IMAGING 03/17/15 U/S FNA bilateral thyroid PAST SURGICAL HISTORY OF Left foot - diabetic PAST SURGICAL HISTORY OF Left 06/2015 TKA PAST SURGICAL HISTORY OF Left 10/2016 excision of bone REVSC OPN/PRG FEM/POP W/ANGIOPLASTY UNI 12-31-12 RIGHT FOOT REVSC OPN/PRQ FEM/POP W/ATHRC/ANGIOP SM VSL 02-10-13 right leg REVSC OPN/PRQ FEM/POP W/ATHRC/ANGIOP SM VSL 04-08-13 ROTATOR CUFF REPAIR 03/11/14 Dr. Regi Thompson [facility] SLCTV CATHJ EA 1ST ORD ABDL PEL/LXTR ART BRNCH 06-07-16 APLL ALLERGIES Sulfa (Sulfonamide Antibiotics) MEDICATIONS Current Outpatient Medications Medication Sig amLODIPine (NORVASC) 5 mg tablet Take 5 mg by mouth once daily. metoprolol succinate ER (TOPROL XL) 25 mg 24 hr tablet Take 0.5 tablets by mouth once daily. simvastatin (ZOCOR) 40 mg tablet Take 1 tablet by mouth daily at bedtime. Blood Pressure Test Kit-Medium kit 1 Device once daily. Dx: Essential hypertension clopidogrel (PLAVIX) 75 mg tablet Take 75 mg by mouth once daily. ferrous sulfate 325 mg (65 mg iron) tablet Take 325 mg by mouth daily with breakfast. Cholecalciferol, Vitamin D3, 25 mcg (1,000 unit) cap Take 1,000 Units by mouth once daily. SACCHAROMYCES BOULARDII (PROBIOTIC, S.BOULARDII, ORAL) Take 1 capsule by mouth once daily. Cranberry Extract 300 mg tab Take by mouth. acetaminophen (TYLENOL) 325 mg tablet Take 650 mg by mouth every 6 hours as needed. ascorbic acid, vitamin C, (VITAMIN C) 500 mg tablet Take 1 tablet by mouth once daily. Awtbrjtd-Mrqk-Afj-Folic Acid 18-0.4 mg tab Take 1 tablet by mouth once daily. omega-3 fatty acids 1,000 mg cap Take 1 capsule by mouth once d (more content not included)... [facility] 04-30-2025 History of Presen t illness Narrative HISTORY OF PRESENT ILLNESS: Diabetes Mellitus: - Currently taking glipizide 5 mg daily, had stopped it but restarted it and taking daily since 04/16 - Monitors blood glucose levels four times daily (before breakfast, lunch, dinner, and bedtime) - Fasting blood glucose levels range from 121-164, before lunch and supper its ranging mostly in 200-300s, then at night it's usually upper 100s-200s - Noted higher blood glucose levels after consuming Special K cereal with 1% milk Wounds bilateral feet being managed by podiatry - Home health nurse visits for wound dressing changes - Recent visit to nonprofit director Dr. Irene, who discussed potential surgery for wound debridement, right foot wound is improving -wound infections likely adding to increased blood sugar readings, currently doesn't have infection and not on antibiotics Prior encounters leading up to this visit: Initial reason for follow up and when starting on glipizide: 04/07 phone encounter- BLOOD GLUCOSE: Currently 140 fasting this morning. Patient reports that since coming home from the hospital her blood sugars have been elevated throughout the day. She reports that generally over 200. EX: 04/06/2025 mid-afternoon 440, Bedtime 279, and 04/07/2025 fasting 140. Patient reports that during TCU stay metformin was discontinued by Dr. Solomon d/t her kidney function. Patient forgot to ask about blood sugars at follow up hospital visit with Yumiko. Most recent phone encounter: 04/15 HAVE BEENTAKING THE GLIPIZED SINCE THE 16 OF APRIL AND HAVE NOT REALLY SEEN ANY IMPROVMENT IN THE BLOOD SUGARS.DEPENDING ON WHAT THEY ARE AT NIGHT, I GET UP IN THE MORNING AND TAKE IT. THIS MORNING IT WAS 177. I ATE A SMALL BOWL OF CEREAL(SPECIAL K WITH 13 GRAMS OD PROTEIN AND 1% MILK. I TOOK BLOOD SUGAR 2 HOURS LATER AND IT WAS 404. DON'T UNDERSTAND. SHOULD WE INCREASE THE DOSAGE. WILL AWAIT YOUR REPLY AND SUGGESTIONS. 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 Ch Frog Shaker, 90% blockage- unable to do stenting Diabetes mellitus type 2 in obese Diabetic feet (HCC) Gangrene (HCC) 2012 RIGHT FOOT Hypertension Mild non proliferative diabetic retinopathy (HCC) 06/11/2013 Both eyes, Dr. Ortiz [facility]-03/25/2020 left mild, right moderate Multiple thyroid nodules last US 01/2015 Peripheral artery disease due to Diabetes mellitus, Dr. Kwaku Moscoso Rotator cuff syndrome of left shoulder Dr. Regi Thompson [facility] PAST SURGICAL HISTORY Procedure Laterality Date AMPUTATION TOE INTERPHALANGEAL JOINT 01-01-2013 left 5th toe due to diabetes gangrene ARTHROSCOPY KNEE DIAGNOSTIC W/WO SYNOVIAL BX SPX 12/31/13 Arthroscopy, knee lt COLONOSCOPY FLX DX W/COLLJ SPEC WHEN PFRMD 11-21-13 tubular adenomas, repeat in 3 years COLONOSCOPY FLX DX W/COLLJ SPEC WHEN PFRMD 10/25/2016 ESOPHAGOGASTRODUODENOSCOPY TRANSORAL DIAGNOSTIC 10/25/2016 EXC TUMOR SOFT TISS FOREARM AND/WRIST SUBQ 3+CM 09/08/14 Exc. right olecrenon dermal/SC mass FNA WITH IMAGING 03/17/15 U/S FNA bilateral thyroid PAST SURGICAL HISTORY OF Left foot - diabetic PAST SURGICAL HISTORY OF Left 06/2015 TKA PAST SURGICAL HISTORY OF Left 10/2016 excision of bone REVSC OPN/PRG FEM/POP W/ANGIOPLASTY UNI 12-31-12 RIGHT FOOT REVSC OPN/PRQ FEM/POP W/ATHRC/ANGIOP SM VSL 02-10-13 right leg REVSC OPN/PRQ FEM/POP W/ATHRC/ANGIOP SM VSL 04-08-13 ROTATOR CUFF REPAIR 03/11/14 Dr. Regi Thompson [facility] SLCTV CATHJ EA 1ST ORD ABDL PEL/LXTR ART BRNCH 06-07-16 APLL ALLERGIES Sulfa (Sulfonamide Antibiotics) MEDICATIONS Current Outpatient Medications Medication Sig amLODIPine (NORVASC) 5 mg tablet Take 5 mg by mouth once daily. metoprolol succinate ER (TOPROL XL) 25 mg 24 hr tablet Take 0.5 tablets by mouth once daily. simvastatin (ZOCOR) 40 mg tablet Take 1 tablet by mouth daily at bedtime. Blood Pressure Test Kit-Medium kit 1 Device once daily. Dx: Essential hypertension clopidogrel (PLAVIX) 75 mg tablet Take 75 mg by mouth once daily. ferrous sulfate 325 mg (65 mg iron) tablet Take 325 mg by mouth daily with breakfast. Cholecalciferol, Vitamin D3, 25 mcg (1,000 unit) cap Take 1,000 Units by mouth once daily. SACCHAROMYCES BOULARDII (PROBIOTIC, S.BOULARDII, ORAL) Take 1 capsule by mouth once daily. Cranberry Extract 300 mg tab Take by mouth. acetaminophen (TYLENOL) 325 mg tablet Take 650 mg by mouth every 6 hours as needed. ascorbic acid, vitamin C, (VITAMIN C) 500 mg tablet Take 1 tablet by mouth once daily. Ghqndhor-Gwxv-Qub-Folic Acid 18-0.4 mg tab Take 1 tablet by mouth once daily. omega-3 fatty acids 1,000 mg cap Take 1 capsule by mouth once daily. Aspirin 81 mg Tab Take 1 tablet by mouth once daily. Take with food. glipiZIDE (GLUCOTROL XL) 5 mg 24 hr tablet Take 1 tablet by mouth two times a day. No current facility-administered medications for this visit. FAMILY HISTORY Problem Relation Age of Onset Diabetes Maternal Grandmother Emphysema Mother Osteoporosis Mother Heart Father Stroke Father Social History Tobacco Use Smoking status: Former Current packs/day: 0.00 Average packs/day: 0.5 packs/day for 45.0 years (22.5 ttl pk-yrs) Types: Cigarettes Start date: 12/20/1967 Quit date: 12/20/2012 Years since quittin.3 Smokeless tobacco: Never Substance Use Topics Alcohol use: No Drug use: No REVIEW OF SYSTEMS Skin: (+) foot wounds, (+) foot infection Musculoskeletal: (+) foot pain Neurological: (+) gait instability Endocrine: denies hypoglycemic reactions See HPI EXAM: BP 130/60 (BP Site: Left Arm, BP Position: Sitting, BP Cuff Size: Regular Adult) Pulse 77 Resp 12 Wt 68.9 kg (151 lb 12.8 oz) SpO2 98% BMI 24.50 kg/m PHYSICAL EXAM: General Appearance: non-ill appearing, appears her stated age, affect appropriate, pleasant. Skin: Skin color, texture, turgor normal, no suspicious rashes or lesions. Bilateral feet have surgical shoes on and she has buzz wraps covering bandages. Lungs: Lungs clear to auscultation. No wheezing, rhonchi, rales.. Heart: RRR without murmur, gallop, or rubs. No ectopy. Musculoskeletal: gait slow, steady with use of cane. ASSESSMENT/PLAN 1. 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 Hyperglycemia (R73.9) - Blood glucose levels have been elevated - Current medication regimen includes glipizide 5 mg once daily. - Increased glipizide xl to 10 mg daily, to be taken as 5 mg BID with breakfast and dinner to provide more consistent glycemic control. - Patient to continue monitoring blood glucose levels and log them- Patient to send blood glucose log in two weeks to assess response to medication adjustment. - Discussed the impact of dietary choices and current foot infections on blood glucose levels. - Follow-up appointment with Dr. Vasquez scheduled for 06/16; labs ordered to be completed on 06/08 - Take glipizide with meals to prevent hypoglycemia Discussed treatment plan and patient voices understanding. Patient's questions answered appropriately. Medications and potential side effects were discussed and patient voices understanding. Return to the office as scheduled or as needed for worsening/no improvement. Fouzia Escobedo APRN.SHOEMAKING FINISHER Recording using SlideJar software for draft documentation of the visit was discussed with the patient/authorized employment program representative; all questions welcomed and answered. Patient/authorized employment program representative agreed to proceed documented in this encounter [facility] 04-27-2025 Radiology Diagnostic study note [facility] Imaging Services [address] [place], [place] [address] Thyroid MR#: [id number] Acct: [id number] Name: GELY NEWMAN Rep #: [id number] : 1950 F 75 From: Courtney Bright MD PCP: Dr. Rishi Vasquez, DO Status: RE G CLI Study:Thyroid Date of Exam: 04/27/25 Exam# [id number] Ordering Dr: Alla Renee MD PROCEDURE: THYROID, 04/27/2025 REASON FOR EXAM: ONE YEAR F/U TECHNIQUE: Grayscale and color Doppler imaging of the thyroid was performed. COMPARISON: 01/09/2024 ; note that images only are available for review, the report is not available at the time of the dictation. FINDINGS: Right lobe measures 6.0 x 2.4 x 2.7cm. Essentially homogeneous background echotexture. No abnormal vascularity. Nodules as below: *10 x 10 x 12 mm, mixed cystic and solid, punctate echogenic foci, slightly hypoechoic solid components, TI-RADS 4. Probably corresponding to a nodule previously measuring 8 x 14 x 11 mm. *5 x 4 x 6 mm, spongiform, not suspicious. *A previous solid hypoechoic nodule with punctate echogenic foci is not seen. Left lobe measures 6.2 x 2.5 x 3.7 cm. Essentially homogeneous background echotexture. No abnormal vascularity. Nodules as below: *14 x 11 x 12 mm, mostly cystic, not suspicious. *10 x 10 x 7 mm, mostly solid, hypoechoic, TI-RADS 4. Unclear correlate previously. *7 x 6 x 6 mm, mostly solid, isoechoic, TI-RADS 3. Unclear correlate previously. *Previous solid hypoechoic nodule at the lower pole near the isthmus with punctate echogenic foci not visualized. *Additional smaller nodules and cysts. Isthmus measures 10 mm in thickness, thickened. US/Thyroid IMPRESSION: 1. Assessment is TI-RADS 4. No nodules currently meet criteria for FNA. Follow-up is recommended in 1 year as per. Note some nodules previously seen were nonvisualized. Recommend specific attention on follow-up. 2. Enlarged gland with homogeneous background appearance. No abnormal vascularity. Management recommendations for TI-RADS 3 findings: FNA if = 2.5 cm; Follow if = 1.5 cm at 1, 3, and 5 years. Management recommendations for TI-RADS 4 findings: FNA if = 1.5 cm; Follow if = 1 cm at 1, 2, 3, and 5 years. Enlargment is defined as ?20% increase in at least two nodule dimensions, with aminimal increase of 2 mm or ?50% or greater increase in volume. Recommendations per ACR Thyroid Imaging, Reporting and Data System (TI-RADS): White Paper of the ACR TI-RADS Committee, 2017 (https://linkinghub.elsevier.co m/retrieve/pii/Z559460188532378 2) Reading Location: [facility] CC: Dr. Rishi Vasquez, DO; Dr. Ciaran Renee MD ~ Poultry Eviscerator: Signed [facility] 04-16-2025 Telephone encounter Note Jessika calling from [facility] to report plan of care for patient and residential will continue visit patient 1 time a week for 5 weeks. half-way will work with patient on wound care to bilateral lower extremities. Patient is being follow by Dr. Irene for wound care. No call back needed. Hina Lomeli RN [facility] 04-16-2025 Miscellaneous Notes Jessika calling from [facility] to report plan of care for patient and residential will continue visit patient 1 time a week for 5 weeks. half-way will work with patient on wound care to bilateral lower extremities. Patient is being follow by Dr. Irene for wound care. No call back needed. Hina Lomeli RN documented in this encounter [facility] 04-07-2025 Telephone encounter Note Patient calls for elevated blood sugar readings as below (above 200 throughout the day, one time yesterday 440). Nurse triage recommends home care. Patient specifically asking for Dr. Vasquez to review and advise on any medication that she can take to assist with bringing sugars back within range. Care advice reviewed. With verbalized understanding. Patient asking if glimepiride could be increased or something could be added to replace the metformin that isn't as hard on the kidneys. Reason for Disposition [1] Blood glucose 240 - 300 mg/dL (13.3 - 16.7 mmol/L) AND [2] does not use insulin (e.g., not insulin-dependent; most people with type 2 diabetes) Answer Assessment - Initial Assessment Questions 1. BLOOD GLUCOSE: Currently 140 fasting this morning. Patient reports that since coming home from the hospital her blood sugars have been elevated throughout the day. She reports that generally over 200. EX: 04/06/2025 mid-afternoon 440, Bedtime 279, and 04/07/2025 fasting 140. Patient reports that during TCU stay metformin was discontinued by Dr. Solomon d/t her kidney function. Patient forgot to ask about blood sugars at follow up hospital visit with Yumiko. 2. ONSET: Since discharging home form hospital. 3. USUAL RANGE:Less than 140 fasting and less than 200 throughout the day 4. KETONES:No 5. TYPE 1 or 2: Type 2 6. INSULIN:No 7. DIABETES PILLS: Yes, Glimepiride 4 mg every morning 8. OTHER SYMPTOMS: No fever, frequent urination, difficulty breathing, dizziness, weakness, vomiting Protocols used: Diabetes - High Blood [id number]-[id number] [facility] 04-07-2025 Miscellaneous Notes Patient calls for elevated blood sugar readings as below (above 200 throughout the day, one time yesterday 440). Nurse triage recommends home care. Patient specifically asking for Dr. Vasquez to review and advise on any medication that she can take to assist with bringing sugars back within range. Care advice reviewed. With verbalized understanding. Patient asking if glimepiride could be increased or something could be added to replace the metformin that isn't as hard on the kidneys. Reason for Disposition [1] Blood glucose 240 - 300 mg/dL (13.3 - 16.7 mmol/L) AND [2] does not use insulin (e.g., not insulin-dependent; most people with type 2 diabetes) Answer Assessment - Initial Assessment Questions 1. BLOOD GLUCOSE: Currently 140 fasting this morning. Patient reports that since coming home from the hospital her blood sugars have been elevated throughout the day. She reports that generally over 200. EX: 04/06/2025 mid-afternoon 440, Bedtime 279, and 04/07/2025 fasting 140. Patient reports that during TCU stay metformin was discontinued by Dr. Solomon d/t her kidney function. Patient forgot to ask about blood sugars at follow up hospital visit with Yumiko. 2. ONSET: Since discharging home form hospital. 3. USUAL RANGE:Less than 140 fasting and less than 200 throughout the day 4. KETONES:No 5. TYPE 1 or 2: Type 2 6. INSULIN:No 7. DIABETES PILLS: Yes, Glimepiride 4 mg every morning 8. OTHER SYMPTOMS: No fever, frequent urination, difficulty breathing, dizziness, weakness, vomiting Protocols used: Diabetes - High Blood [id number] documented in this encounter [facility] 03-27-2025 Instructions PodlogarYumiko APRN.SHOEMAKING FINISHER - 03/27/2025 10:36 AM EDT WHAT YOU CAN DO TO PREVENT FALLS Many falls can be prevented. By making some changes, you can lower your chances of falling. Four things YOU can do to prevent falls for you* and your caregiver 1. Begin a regular exercise program Exercise is one of the most important ways to lower your chances of falling. It makes you stronger and helps you feel better. Exercises that improve balance and coordination (like Phong Chi) are the most helpful. Lack of exercise leads to weakness and increases your chances of falling. Ask your doctor or health care provider about the best type of exercise program for you. 2. Have your health care provider review your medicines Have your doctor or pharmacist review all the medicines you take, even bkjw-bzk-bmntren medicines. As you get older, the way medicines work in your body can change. Some medicines, or combinations of medicines, can make you sleepy or dizzy and can cause you to fall. 3. Have your vision checked Have your eyes checked by an eye doctor at least once a year. You may be wearing the wrong glasses or have a condition like glaucoma or cataracts that limits your vision. Poor vision can increase your chances of falling. 4. Make your home safer About half of all falls happen at home. To make your home safer: Remove things you can trip over (like papers, books, clothes, and shoes) from stairs and places where you walk. Remove small throw rugs or use double-sided tape to keep the rugs from slipping. Keep items you use often in cabinets you can reach easily without using a step stool. Have grab bars put in next to your toilet and in the tub or shower. Use non-slip mats in the bathtub and on shower floors. Improve the lighting in your home. As you get older, you need brighter lights to see well. Hang light-weight curtains or shades to reduce glare. Have handrails and lights put in on all staircases. Wear shoes both inside and outside the house. Avoid going barefoot or wearing slippers. For more information, contact: Centers for Disease Control and Prevention www.cdc.gov/injury * This information may not apply if you have certain medical conditions. documented in this encounter [facility] 03-27-2025 History of Presen t illness Narrative 03/26/2025 Patient presents with: ER F/U: [facility] ED -03/20/25 Multiple falls, gangrene SADIE feet SUBJECTIVE: This is a 75 year old that is here today for Above Complaints. HOSPITAL/ER FOLLOW UP: Reason for visit: Recurrent falls, Which facility: [facility] transferred to [facility] TCU Date of visit: 03/07/2025-03/11/2025 [facility] then to TCU 03/11/2025-03/19/2025 Diagnosis: UTI, Rhabdomyolysis, SHAYY, Chronic bilateral feet wounds, Anemia of chronic disease Testing done: Blood work, UA, XR hip, CXR Treatment given: IV rocephin, oral antibiotics, Blood transfusion, and PT Since discharge has been doing well. Taking her antibiotics as prescribed. Has been working with OT/PT. Needs order for wheeled walker today. Has follow-ups scheduled with Dr. Irene ( foot doctor) and infectious disease on 03/27/2025. Denies fevers, chills, recurrent falls since discharge. 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 Ch Frog Shaker, 90% blockage- unable to do stenting Diabetes mellitus type 2 in obese Diabetic feet (HCC) Gangrene (HCC) 2012 RIGHT FOOT Hypertension Mild non proliferative diabetic retinopathy (HCC) 06/11/2013 Both eyes, Dr. Ortiz [facility]-03/25/2020 left mild, right moderate Multiple thyroid nodules last US 01/2015 Peripheral artery disease (HCC) due to Diabetes mellitus, Dr. Kwaku Moscoso Rotator cuff syndrome of left shoulder [facility] ALLERGIES Sulfa (Sulfonamide Antibiotics) MEDICATIONS Current Outpatient Medications Medication Sig hydroCHLOROthiazide 25 mg tablet Take 1 tablet by mouth once daily. simvastatin (ZOCOR) 40 mg tablet Take 1 tablet by mouth daily at bedtime. lisinopril (ZESTRIL) 20 mg tablet Take 1 tablet by mouth once daily. glimepiride (AMARYL) 4 mg tablet Take 1 tablet by mouth daily with breakfast. metFORMIN (GLUCOPHAGE) 500 mg tablet Take 1 tablet by mouth two times a day with meals. estradiol (ESTRACE) 0.01 % (0.1 mg/gram) vaginal cream Use 1 g vaginally two times a week. Blood Pressure Test Kit-Medium kit 1 Device once daily. Dx: Essential hypertension clopidogrel (PLAVIX) 75 mg tablet Take 75 mg by mouth once daily. ferrous sulfate 325 mg (65 mg iron) tablet Take 325 mg by mouth daily with breakfast. Cholecalciferol, Vitamin D3, 25 mcg (1,000 unit) cap Take 1,000 Units by mouth once daily. SACCHAROMYCES BOULARDII (PROBIOTIC, S.BOULARDII, ORAL) Take 1 capsule by mouth once daily. Cranberry Extract 300 mg tab Take by mouth. acetaminophen (TYLENOL) 325 mg tablet Take 650 mg by mouth every 6 hours as needed. ascorbic acid, vitamin C, (VITAMIN C) 500 mg tablet Take 1 tablet by mouth once daily. Udbtpudg-Sagp-Vxz-Folic Acid 18-0.4 mg tab Take 1 tablet by mouth once daily. metoprolol succinate ER (TOPROL XL) 50 mg 24 hr tablet Take 1 tablet by mouth once daily. omega-3 fatty acids 1,000 mg cap Take 1 capsule by mouth once daily. Aspirin 81 mg Tab Take 1 tablet by mouth once daily. Take with food. No current facility-administered medications for this visit. Medications and allergies reviewed by this provider. SOCIAL HISTORY Social History Tobacco Use Smoking status: Former Current packs/day: 0.00 Average packs/day: 0.5 packs/day for 45.0 years (22.5 ttl pk-yrs) Types: Cigarettes Start date: 12/20/1967 Quit date: 12/20/2012 Years since quittin.2 Smokeless tobacco: Never Substance Use Topics Alcohol use: No Drug use: No REVIEW OF SYSTEMS All other reviewed and negative other than HPI. OBJECTIVE: BP 134/68 Pulse 74 Resp 16 SpO2 99% . Vital signs reviewed by this provider. APPEARANCE Well appearing, alert, in no acute distress, well-hydrated, well nourished. EYES conjunctiva and sclera normal. HEART RRR with normal S1 and S2, no murmurs, no gallops, no JVD appreciated LUNG clear to auscultation. No wheezes, rhonchi or rales EXTREMITIES Bilateral feet wrapped SKIN Skin color, texture, turgor normal, no suspicious rashes or lesions Anxiety Screening Never done Lung Cancer Screening Never done Shingrix Vaccine(1 of 2) Never done DTaP,Tdap,Td Vaccine(2 - Td or Tdap) due on 04/24/2023 Urine Albumin:Creatinine Ratio due on 05/30/2024 Covid-19 Vaccine( season) due on 07/20/2024 Diabetic Foot Exam due on 04/02/2025 Mammogram Screening due on 06/03/2025 HbA1C due on 05/31/2025 Dilated Retinal Exam due on 06/02/2025 BP Controlled (<130/80) due on 06/04/2025 LDL Cholesterol due on 12/01/2025 Serum Creatinine due on 12/01/2025 Hemoglobin/Hematocrit due on 12/01/2025 Annual PCP Team Chronic Disease Visit due on 03/27/2026 Colorectal Cancer Screening due on 01/20/2027 RSV Vaccine(1 - 1-dose 75+ series) due on 2027 Bone Density Screening Completed Influenza Vaccine Completed Hepatitis C Screening Completed Pneumococcal Vaccine: 50+ Completed Advance Directive Discussion Discontinued ASSESSMENT/PLAN: 1. Hospital discharge follow-up - ICD9: V67.59, ICD10: Z09 (primary diagnosis) -plan as below - follow-up with Dr. Vasquez as scheduled in May, sooner if needed 2. Diabetic foot ulcer associated with type 2 diabetes mellitus, unspecified laterality, unspecified part of foot, unspecified ulcer stage (HCC) - ICD9: 250.80, 707.15, ICD10: E11.621, L97.509 - Controlled - Continue current medications - Follow up in 2 month, sooner should any other issues arise. - ROLLING WALKER - WALKER FOLDING WHEELED W/O S 3. Abnormality of gait - ICD9: 781.2, ICD10: R26.9 - continue to work with PT/OT - FALLS RISK EDUCATION - WALKER FOLDING WHEELED W/O S 4. Falling episodes - ICD9: 781.99, E888.9, ICD10: R29.6 - continue to work with PT/OT - FALLS RISK EDUCATION - WALKER FOLDING WHEELED W/O S Yumiko Whitehead APRN.SHOEMAKING FINISHER Prescription instructions reviewed with patient as applicable. Patient advised if symptoms do not improve or if symptoms worsen sooner, to contact their primary care physician. Potential red flag symptoms discussed with the patient. Reviewed appropriate action plan to take if red flag symptoms occur. Patient agreeable to treatment plan. I spent a total of 30 minutes on the date of the service which included preparing to see the patient, [id number] patient care, completing clinical documentation, obtaining and/or reviewing separately obtained history, performing a medically appropriate examination, counseling and educating the patient/family/caregiver, and ordering medications, tests, or procedures. documented in this encounter [facility] 03-27-2025 Note HNO ID: [id number] Author: YUMIKO WHITEHEAD APRN.MAKR Service: ? Author Type: Nurse Practitioner Type: Progress Notes Filed: 03/27/2025 11:01 Note Text: 03/26/2025 Patient presents with: ER F/U: [facility] ED -03/20/25 Multiple falls, gangrene SADIE feet SUBJECTIVE: This is a 75 year old that is here today for Above Complaints. HOSPITAL/ER FOLLOW UP: Reason for visit: Recurrent falls, Which facility: [facility] transferred to [facility] Date of visit: 03/07/2025-03/11/2025 [facility] then to [facility] 03/11/2025-03/19/2025 Diagnosis: UTI, Rhabdomyolysis, SHAYY, Chronic bilateral feet wounds, Anemia of chronic disease Testing done: Blood work, UA, XR hip, CXR Treatment given: IV rocephin, oral antibiotics, Blood transfusion, and PT Since discharge has been doing well. Taking her antibiotics as prescribed. Has been working with OT/PT. Needs order for wheeled walker today. Has follow-ups scheduled with Dr. Irene ( foot doctor) and infectious disease on 03/27/2025. Denies fevers, chills, recurrent falls since discharge. 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 Ch Frog Shaker, 90% blockage- unable to do stenting Diabetes mellitus type 2 in obese Diabetic feet (HCC) Gangrene (HCC) 2012 RIGHT FOOT Hypertension Mild non proliferative diabetic retinopathy (HCC) 06/11/2013 Both eyes, Dr. Ortiz [facility]-03/25/2020 left mild, right moderate Multiple thyroid nodules last US 01/2015 Peripheral artery disease (HCC) due to Diabetes mellitus, Dr. Kwaku Moscoso Rotator cuff syndrome of left shoulder Dr. Deluna [facility] ALLERGIES Sulfa (Sulfonamide Antibiotics) MEDICATIONS Current Outpatient Medications Medication Sig hydroCHLOROthiazide 25 mg tablet Take 1 tablet by mouth once daily. simvastatin (ZOCOR) 40 mg tablet Take 1 tablet by mouth daily at bedtime. lisinopril (ZESTRIL) 20 mg tablet Take 1 tablet by mouth once daily. glimepiride (AMARYL) 4 mg tablet Take 1 tablet by mouth daily with breakfast. metFORMIN (GLUCOPHAGE) 500 mg tablet Take 1 tablet by mouth two times a day with meals. estradiol (ESTRACE) 0.01 % (0.1 mg/gram) vaginal cream Use 1 g vaginally two times a week. Blood Pressure Test Kit-Medium kit 1 Device once daily. Dx: Essential hypertension clopidogrel (PLAVIX) 75 mg tablet Take 75 mg by mouth once daily. ferrous sulfate 325 mg (65 mg iron) tablet Take 325 mg by mouth daily with breakfast. Cholecalciferol, Vitamin D3, 25 mcg (1,000 unit) cap Take 1,000 Units by mouth once daily. SACCHAROMYCES BOULARDII (PROBIOTIC, S.BOULARDII, ORAL) Take 1 capsule by mouth once daily. Cranberry Extract 300 mg tab Take by mouth. acetaminophen (TYLENOL) 325 mg tablet Take 650 mg by mouth every 6 hours as needed. ascorbic acid, vitamin C, (VITAMIN C) 500 mg tablet Take 1 tablet by mouth once daily. Ktelxllk-Cgan-Jyq-Folic Acid 18-0.4 mg tab Take 1 tablet by mouth once daily. metoprolol succinate ER (TOPROL XL) 50 mg 24 hr tablet Take 1 tablet by mouth once daily. omega-3 fatty acids 1,000 mg cap Take 1 capsule by mouth once daily. Aspirin 81 mg Tab Take 1 tablet by mouth once daily. Take with food. No current facility-administered medications for this visit. Medications and allergies reviewed by this provider. SOCIAL HISTORY Social History Tobacco Use Smoking status: Former Current packs/day: 0.00 Average packs/day: 0.5 packs/day for 45.0 years (22.5 ttl pk-yrs) Types: Cigarettes Start date: 12/20/1967 Quit date: 12/20/2012 Years since quittin.2 Smokeless tobacco: Never Substance Use Topics Alcohol use: No Drug use: No REVIEW OF SYSTEMS All other reviewed and negative other than HPI. OBJECTIVE: BP 134/68 Pulse 74 Resp 16 SpO2 99% . Vital signs reviewed by this provider. APPEARANCE Well appearing, alert, in no acute distress, well-hydrated, well nourished. EYES conjunctiva and sclera normal. HEART RRR with normal S1 and S2, no murmurs, no gallops, no JVD appreciated LUNG clear to auscultation. No wheezes, rhonchi or rales EXTREMITIES Bilateral feet wrapped SKIN Skin color, texture, turgor normal, no suspicious rashes or lesions Anxiety Screening Never done Lung Cancer Screening Never done Shingrix Vaccine(1 of 2) Never done DTaP,Tdap,Td Vaccine(2 - Td or Tdap) due on 04/24/2023 Urine Albumin:Creatinine Ratio due on 05/30/2024 Covid-19 Vaccine() due on 07/20/2024 Diabetic Foot Exam due on 04/02/2025 Mammogram Screening due on 06/03/2025 HbA1C due on 05/31/2025 Dilated Retinal Exam due on 06/02/2025 BP Controlled (<130/80) due on 06/04/2025 LDL Cholesterol due on 12/01/2025 Serum Creatinine due on 12/01/2025 Hemoglobin/Hematocrit due on 12/01/2025 Annual PCP Team Chronic Disease Visit due on 03/27/2026 Colorectal Cancer Screen (more content not included)... [facility] 03-26-2025 Telephone encounter Note Agree. BP will be reassessed at appointment tomorrow. Let us know if not addressed at appointment tomorrow. Thank you, Clray Andres APRN.SHOEMAKING FINISHER [facility] Work Phone: 03-26-2025 Miscellaneous Notes Agree. BP will be reassessed at appointment tomorrow. Let us know if not addressed at appointment tomorrow. Thank you, Clary Andres APRN.SHOEMAKING FINISHER [facility]- reporting updated POC: plans to see pt 1 x week for 1 week then 2 x week for 2 weeks, then 1 x week for 1 week with focus on laundry and equipment training. Reports pt's BP today was 163/67 today. Pt was asymptomatic. Reports pt would benefit from a front wheeled walker. Pt is using her 's walker. Pt's and the walker is not in good shape. Reports pt is going to talk to provider at [facility] tomorrow about getting a front wheeled walker. No call back needed if pcp agrees. documented in this encounter [facility] 03-26-2025 [facility]: plans to see pt 1 x week for 1 week then 2 x week for 2 weeks, then 1 x week for 1 week with focus on laundry and equipment training. Reports pt's BP today was 163/67 today. Pt was asymptomatic. Reports pt would benefit from a front wheeled walker. Pt is using her 's walker. Pt's and the walker is not in good shape. Reports pt is going to talk to provider at [facility] tomorrow about getting a front wheeled walker. No call back needed if pcp agrees. [facility] 03-24-2025 Telephone encounter Note Noted Rishi Vasquez DO [facility] 03-24-2025 Miscellaneous Notes Noted Rishi Vasquez DO [facility] calling from [facility] to report plan of care for patient and PT will visit patient 2 times a week for two weeks. PT will work with patient on functional mobility. No call back needed. Clemencia Chapman RN documented in this encounter [facility] 03-24-2025 Telephone encounter Note [facility] calling from [facility] to report plan of care for patient and PT will visit patient 2 times a week for two weeks. PT will work with patient on functional mobility. No call back needed. Clemencia Chapman RN [facility] 03-24-2025 Telephone encounter Note Noted Jesenia Mcgee PA-C [facility] Work Phone: 03-24-2025 Miscellaneous Notes Sai Mcgee PA-C Tatum with [facility] Nursing calls to report she saw pt today for start of care. Nursing will see pt once a week x 2 weeks then twice a week x 1 week, then once a week x 1. Nursing will be doing wound care and teaching wound prevention and education. Melly Pnion LPN documented in this encounter [facility] 03-23-2025 Telephone encounter Note Tatum with [facility] Nursing calls to report she saw pt today for start of care. Nursing will see pt once a week x 2 weeks then twice a week x 1 week, then once a week x 1. Nursing will be doing wound care and teaching wound prevention and education. Melly Pinon LPN [facility] 03-23-2025 Telephone encounter Note Call placed to Yvonne and notified of below. Clemencia Chapman RN [facility] 03-23-2025 Miscellaneous Notes Call placed to Yvonne and notified of below. Clemencia Chapman RN Yes Rishi Vasquez DO Yvonne with [facility] calls to ask if provider would be willing to follow their discharge orders for SN, PT, OT. Patient discharged home today from [facility] after having hospitalization and rehab for falls and UTI. Call back number is [phone]. Clemencia Chapman RN documented in this encounter [facility] 03-20-2025 Telephone encounter Note Yes Rishi Vasquez DO [facility] 03-20-2025 Telephone encounter Note Yvonne with [facility] HH calls to ask if provider would be willing to follow their discharge orders for SN, PT, OT. Patient discharged home today from [facility] after having hospitalization and rehab for falls and UTI. Call back number is [phone]. Clemencia Chapman RN [facility] 03-17-[address] [facility] 03-17-[address] [facility] 03-11-[address] [facility] 03-11-[address] [facility] 03-08-[address] [facility] 03-07-2025 Evaluation note Diagnosis Onset Date Resolution Acute UTI acute March 07 4:25pm SHAYY (acute kidney injury) acute March 07, 2025 4:25pm Anemia acute March 07 4:25pm Contusion of left hip acute Apr 2024 4:25pm GI bleed acute March 07 4:25pm Recurrent falls acute February 4:25pm Rhabdomyolysis acute February 4:25pm Unstageable pressure injury of left lower leg acute February 172024 4:25pm Unstageable pressure injury of right lower leg acute March 07, 2025 4:25pm Chronic kidney disease chronic Ap ril 2024 4:25pm Chronic wound of extremity chronic March 07, 2025 4:25pm Osteomyelitis of left foot chronic March 07, 2025 4:25pm 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 inactive March 07, 2025 4:25pm Chronic painful diabetic polyneuropathy inactive March 07, 2025 4:25pm Other specified peripheral vascular diseases inactive March 07, 2025 4:25pm SHAYY (acute kidney injury) acute March 11, 2025 5:26pm Chronic kidney disease, stage 3b acute March 11, 2025 5:26pm Debility acute March 11 5:26pm Diabetic foot ulcer acute March 11, 2025 5:26pm Dry gangrene acute March 11, 2025 5:26pm Essential (primary) hypertension acute March 11, 2025 5:26pm Iron deficiency anemia acute Ap ril 2024 5:26pm Multiple falls acute February 5:26pm PAOD (peripheral arterial occlusive disease) acute March 11, 2 025 5:26pm Rhabdomyolysis acute February 5:26pm Type 2 diabetes mellitus with hyperglycemia acute March 11, 2 025 5:26pm Urinary tract infection acute A pril 2024 5:26pm Diabetes mellitus with polyneuropathy chronic March 11, 2025 5:26pm Hyperlipidemia chronic February 5:26pm Osteomyelitis of left foot chronic March 11, 2025 5:26pm 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 Work Phone: 1(460) 220-870304-19-2025 Evaluation note* Diagnosis Onset Date Resolution Status Admit Date Acute UTI acute March 07 4:25pm SHAYY (acute kidney injury) acute March 07, 2025 4:25pm Anemia acute March 07 4:25pm Contusion of left hip acute Apr 2024 4:25pm GI bleed acute March 07 4:25pm Recurrent falls acute February 4:25pm Rhabdomyolysis acute February 4:25pm Unstageable pressure injury of left lower leg acute March 07, 2025 4:25pm Unstageable pressure injury of right lower leg acute March 07, 2025 4:25pm Chronic kidney disease chronic Ap ril 2024 4:25pm Chronic wound of extremity chronic March 07, 2025 4:25pm Osteomyelitis of left foot chronic March 07, 2025 4:25pm 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 inactive March 07, 2025 4:25pm Chronic painful diabetic polyneuropathy inactive March 07, 2025 4:25pm Other specified peripheral vascular diseases inactive March 07 4:25pm SHAYY (acute kidney injury) acute March 11, 2025 5:26pm Chronic kidney disease, stage 3b acu te March 11, 2025 5:26pm Debility acute March 11 5:26pm Diabetic foot ulcer acute March 11, 2025 5:26pm Dry gangrene acute March 11, 2025 5:26pm Essential (primary) hypertension acu te March 11, 2025 5:26pm Iron deficiency anemia acute Ap ril 2024 5:26pm Multiple falls acute February 5:26pm PAOD (peripheral arterial occlusive disease) acute March 11, 025 5:26pm Rhabdomyolysis acute February 5:26pm Type 2 diabetes mellitus wit h hyperglycemia acute March 11, 2025 5:26pm Urinary tract infection acute A pril 2024 5:26pm Diabetes mellitus with polyneuropathy chronic March 11, 2025 5:26pm Hyperlipidemia chronic February 5:26pm Osteomyelitis of left foot chronic March 11, 2025 5:26pm 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 inactive March 11, 2025 5:26pm Chronic painful diabetic polyneuropathy inactive March 11, 2025 5:26pm Other specified peripheral vascular diseases inactive March 11 5:26pm Atherosclerosis of both lowe r extremities with bilateral ulceration acute April 03, 2025 1 0:32am PAOD (peripheral arterial occlusive disease) acute April 03 10:32am Carotid artery stenosis chronic M ay 2024 10:32am Diabetes mellitus with polyneuropathy chronic April 03, 2025 1 0:32am [facility] Work Phone: 1(195) 969-600204-19-2025 Evaluation note* Diagnosis Onset Date Resolution Status Admit Date Acute UTI acute March 07 4:25pm SHAYY (acute kidney injury) acute March 07, 2025 4:25pm Anemia acute March 07 4:25pm Contusion of left hip acute Apr il 2024 4:25pm GI bleed acute March 07 4:25pm Recurrent falls acute February 4:25pm Rhabdomyolysis acute February 4:25pm Unstageable pressure injury of left lower leg acute March 07, 2025 4:25pm Unstageable pressure injury of right lower leg acute March 07, 2025 4:25pm Chronic kidney disease chronic Ap ril 2024 4:25pm Chronic wound of extremity chronic March 07, 2025 4:25pm Osteomyelitis of left foot chronic March 07, 2025 4:25pm 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 inactive March 07, 2025 4:25pm Chronic painful diabetic polyneuropathy inactive March 07, 2025 4:25pm Other specified peripheral vascular diseases inactive March 07 4:25pm SHAYY (acute kidney injury) acute March 11, 2025 5:26pm Chronic kidney disease, stage 3b acu te March 11, 2025 5:26pm Debility acute March 11 5:26pm Diabetic foot ulcer acute March 11, 2025 5:26pm Dry gangrene acute March 11, 2025 5:26pm Essential (primary) hypertension acu te March 11, 2025 5:26pm Iron deficiency anemia acute Ap ril 2024 5:26pm Multiple falls acute February 5:26pm PAOD (peripheral arterial occlusive disease) acute March 11, 2 025 5:26pm Rhabdomyolysis acute February 5:26pm Type 2 diabetes mellitus wit h hyperglycemia acute March 11, 2025 5:26pm Urinary tract infection acute A pril 2024 5:26pm Diabetes mellitus with polyneuropathy chronic March 11, 2025 5:26pm Hyperlipidemia chronic February 5:26pm Osteomyelitis of left foot chronic March 11, 2025 5:26pm 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 inactive March 11, 2025 5:26pm Chronic painful diabetic polyneuropathy inactive March 11, 2025 5:26pm Other specified peripheral vascular diseases inactive March 11 5:26pm Atherosclerosis of both lowe r extremities with bilateral ulceration acute April 03, 2025 1 0:32am PAOD (peripheral arterial occlusive disease) acute April 03 10:32am Carotid artery stenosis chronic M ay 2024 10:32am Diabetes mellitus with polyneuropathy chronic April 03, 2025 1 0:32am Preop cardiovascular exam acute May 07, 2025 9:17am Systolic murmur acute April 9:17am Type 2 diabetes mellitus wit h hyperglycemia acute May 07, 2025 9:17am Atherosclerosis of coronary artery of [place] heart without angina pectoris chronic May 07, 2025 9:17am Essential hypertension chronic Ju 2024 9:17am Hyperlipidemia chronic May 07, 2025 9:17am [facility] Work Phone: 1(498) 318-969504-19-2025 Radiology Diagnostic study note [facility] Imaging Services [address] [place] [id number] HIP, UNI W/ Pelvis 2-3 Views MR#: [id number] Acct: [id number] Name: GELY NEWMAN Rep #: [id number] : 1950 F 75 From: Renetta Davis MD PCP: Dr. Rishi Vasquez, DO Status: RE G ER Study:HIP, UNI W/ Pelvis 2-3 Views Date of Ex am: 03/07/25 Exam# [id number] Ordering Dr: Megan Vega PROCEDURE: HIP, UNI W/ PELVIS 2-3 VIEWS 03/07/2025 REASON FOR EXAM: PAIN TECHNIQUE: 2 views of the left hip with AP pelvis. COMPARISON: None. FINDINGS: Bones: Diffuse osseous demineralization. No obvious acute fracture, however visualization is limited by demineralization and patient motion. Chronic fracture deformity/heterotopic ossification along the right greater trochanter. 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 Soft tissues: Marked vascular calcifications. Other: Degenerative changes throughout the lumbar spine. RAD/HIP, UNI W/ Pelvis 2-3 Views IMPRESSION: No obvious acute fracture given limitations. Reading Location: [facility] CC: Dr. Rishi Vasquez DO; LILLIAM Joshua ~ Poultry Eviscerator: Signed [facility]04-19-2025 Radiology Diagnostic study note [facility] Imaging Services [address] [place] [address] Chest 1 View (Portable) MR#: [id number] Acct: [id number] Name: GELY NEWMAN Rep #: [id number] : 1950 F 75 From: Renetta Davis MD PCP: Dr. Rishi Vasquez DO Status: RE G ER Study:Chest 1 View (Portable) Date of Exam: 03/07/25 Exam# [id number] Ordering Dr: Megan Vega PROCEDURE: CHEST 1 VIEW (PORTABLE) 03/07/2025 REASON FOR EXAM: FALLS TECHNIQUE: Frontal view of the chest. COMPARISON: None. FINDINGS: Hardware: Orthopedic anchors within the left humeral head. Heart: The heart size is normal. Lungs: No focal consolidation, pleural effusion or pneumothorax. Bones: Degenerative changes are identified within the thoracic spine. Other: Vascular calcifications. RAD/Chest 1 View (Portable) IMPRESSION: No Acute Findings. Reading Location: [facility] CC: Dr. Rishi Vasquez DO; LILLIAM Joshua ~ Poultry Eviscerator: Signed [facility]04-19-2025 Evaluation note* Diagnosis Onset Date Resolution Status Admit Date Acute UTI acute March 07 4:25pm SHAYY (acute kidney injury) acute March 07, 2025 4:25pm Anemia acute March 07 4:25pm Contusion of left hip acute Apr 2024 4:25pm GI bleed acute March 07 4:25pm Recurrent falls acute February 4:25pm Rhabdomyolysis acute February 4:25pm Chronic kidney disease chronic Ap ril 2024 4:25pm [facility] Work Phone: 1(673) 634-131702-06-2025 Telephone encounter Note* Telephone Encounter - Sara Solis RN - 12/25/2024 5:59 PM EST The patient has been identified by name and date of : Yes Caregiver verified no other encounters exist for this prescription request: Yes Caregiver confirmed with patient/requestor that no other refills are due, in the near future, with this provider at this time: Yes The last office visit in the department: 12/05/2024 Does the patient have a future office visit with this provider/department: Yes 06/09/2025 Requested Prescriptions Pending Prescriptions Disp Refills hydroCHLOROthiazide 25 mg tablet 90 tablet 3 Sig: Take 1 tablet by mouth once daily. Sara Solis RN December 25, 2024 5:59 PM [facility]02-06-2025 Miscellaneous Notes* Telephone Encounter - Sara Solis RN - 12/25/2024 5:59 PM EST The patient has been identified by name and date of : Yes Caregiver verified no other encounters exist for this prescription request: Yes Caregiver confirmed with patient/requestor that no other refills are due, in the near future, with this provider at this time: Yes The last office visit in the department: 12/05/2024 Does the patient have a future office visit with this provider/department: Yes 06/09/2025 Requested Prescriptions Pending Prescriptions Disp Refills hydroCHLOROthiazide 25 mg tablet 90 tablet 3 Sig: Take 1 tablet by mouth once daily. Sara Solis RN December 25, 2024 5:59 PM documented in this encounter[facility]01-17-[facility]25 NoteHNO ID: [id number] Author: RISHI VASQUEZ, DO Service: ? Author Type: Physician Type: Progress Notes Filed: 12/05/2024 11:10 Note Text: Patient presents with: 6 Month Exam HPI: Gely Newman is a 74 year old female who presents to the office today for review of health conditions. Concerns today: PAD, vascular disease, no recent new ulcerations or skin sores Sciatica, b/l thigh pain, significant, worse with prolonged standing or walking. Seeing Dr. Franco for pain mgmt at [facility] and she is now taking Lyrica instead of gabapentin- does cause fatigue and some foggy brain symptoms. Helps pain minimally. Likely to have upcoming lumbar MRI. Had recent pelvic/hip MRI which shows OA changes Knows needs to get more exercise but struggles with this with her arthritis and sciatica pain Ms. Newman has past history of diabetes. Since our last visit she denies excessive thirst or increased frequency of urination, chest pain or dyspnea , new or unusual visual symptoms, and low sugar/hypoglycemic reactions. Depression- no. Follows a diabetic diet some of the time. She is compliant with medication(s) and is tolerating med(s) without any side effects. She reports checking her glucose on a once a day schedule with sugars in the <120 range. Patient's last HgA1C was Hemoglobin A1C (%) Date Value 12/01/2024 6.0 05/30/2024 6.2 11/28/2021 7.0 05/24/2021 6.7 Hemoglobin A1C (POCT) (%) Date Value 05/31/2022 6.2 ) Last Ophthalmology exam was within the past 12 months Ms. Newman reports history of hyperlipidemia. Current therapy includes simvastatin (Zocor) 40 mg. Denies side effects of muscle weakness or achiness. Her most recent lipid panels are reviewed. Cholesterol, Total (mg/dL) Date Value 12/01/2024 138 11/28/2021 190 HDL Cholesterol (mg/dL) Date Value 12/01/2024 44 11/28/2021 55 LDL Cholesterol (mg/dL) Date Value 12/01/2024 64 11/28/2021 95 Triglyceride (mg/dL) Date Value 12/01/2024 151 11/28/2021 199 Ms. Newman indicates a history of hypertension and states that she is feeling well and denies any symptoms referable to elevated blood pressure. Specifically denies headache, chest pain, palpitations, dyspnea, and peripheral edema. Patient denies any side effects of her medication(s) and is compliant with their regimen. Last 3 Encounter BP Readings: Date: BP: 12/05/2024 110/60 06/04/2024 154/70 01/15/2024 166/71 She watches her diet for sodium, low fat and low cholesterol some of the time. She does not check BP's generally. Gely gets sporadic irregular exercise. 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 Ch Frog Shaker, 90% blockage- unable to do stenting Diabetes mellitus type 2 in obese Diabetic feet (HCC) Gangrene (HCC) 2012 RIGHT FOOT Hypertension Mild non proliferative diabetic retinopathy (HCC) 06/11/2013 Both eyes, Dr. Ortiz [facility]-03/25/2020 left mild, right moderate Multiple thyroid nodules last US 01/2015 Peripheral artery disease (HCC) due to Diabetes mellitus, Dr. Kwaku Moscoso Rotator cuff syndrome of left shoulder Dr. Deluna [facility] PAST SURGICAL HISTORY Procedure Laterality Date AMPUTATION TOE INTERPHALANGEAL JOINT 01-01-2013 left 5th toe due to diabetes gangrene ARTHROSCOPY KNEE DIAGNOSTIC W/WO SYNOVIAL BX SPX 12/31/13 Arthroscopy, knee lt COLONOSCOPY FLX DX W/COLLJ SPEC WHEN PFRMD -01-30 tubular adenomas, repeat in 3 years COLONOSCOPY FLX DX W/COLLJ SPEC WHEN PFRMD 10/25/2016 ESOPHAGOGASTRODUODENOSCOPY TRANSORAL DIAGNOSTIC 10/25/2016 EXC TUMOR SOFT TISS FOREARM AND/WRIST SUBQ 3+CM 09/08/14 Exc. right olecrenon dermal/SC mass FNA WITH IMAGING 03/17/15 U/S FNA bilateral thyroid PAST SURGICAL HISTORY OF Left foot - diabetic PAST SURGICAL HISTORY OF Left 06/2015 TKA PAST SURGICAL HISTORY OF Left 10/2016 excision of bone REVSC OPN/PRG FEM/POP W/ANGIOPLASTY UNI 12-31-12 RIGHT FOOT REVSC OPN/PRQ FEM/POP W/ATHRC/ANGIOP SM VSL 02-10-13 right leg REVSC OPN/PRQ FEM/POP W/ATHRC/ANGIOP SM VSL 04-08-13 ROTATOR CUFF REPAIR 03/11/14 Dr. Deluna [facility] CATHJ EA 1ST ORD ABDL PEL/LXTR ART BRNC 06-07-16 APLL Social History Tobacco Use Smoking status: Former Current packs/day: 0.00 Average packs/day: 0.5 packs/day for 45.0 years (22.5 ttl pk-yrs) Types: Cigarettes Start date: 12/20/1967 Quit date: 12/20/2012 Years since quittin.9 Smokeless tobacco: Never Substance Use Topics Alcohol use: No Drug use: No FAMILY HISTORY Problem Relation Age of Onset Diabetes Maternal Grandmother Emphysema Mother Osteoporosis Mother Heart Father Stroke Father Allergies: ALLERGIES Allergen Reactions Sulfa (Sulfonamide * Unknown childhood Current Meds: simvastatin (ZOCOR) 40 mg tablet Take 1 tablet by paolo (more content not included)...[facility]01-17-2025 History of Present illness Narrative* Rishi Vasquez, - 12/05/2024 9:40 AM EST Patient presents with: 6 Month Exam HPI: Gely Newman is a 74 year old female who presents to the office today for review of health conditions. Concerns today: PAD, vascular disease, no recent new ulcerations or skin sores Sciatica, b/l thigh pain, significant, worse with prolonged standing or walking. Seeing Dr. Headley pain mgmt at [facility] and she is now taking Lyrica instead of gabapentin- does cause fatigue and some foggy brain symptoms. Helps pain minimally. Likely to have upcoming lumbar MRI. Had recent pelvic/hip MRI which shows OA changes Knows needs to get more exercise but struggles with this with her arthritis and sciatica pain Ms. Newman has past history of diabetes. Since our last visit she denies excessive thirst or increased frequency of urination, chest pain or dyspnea , new or unusual visual symptoms, and low sugar/hypoglycemic reactions. Depression- no. Follows a diabetic diet some of the time. She is compliant with medication(s) and is tolerating med(s) without any side effects. She reports checking her glucose on a once a day schedule with sugars in the <120 range. Patient's last HgA1C was Hemoglobin A1C (%) Date Value 12/01/2024 6.0 05/30/2024 6.2 11/28/2021 7.0 05/24/2021 6.7 Hemoglobin A1C (POCT) (%) Date Value 05/31/2022 6.2 ) Last Ophthalmology exam was within the past 12 months Ms. Newman reports history of hyperlipidemia. Current therapy includes simvastatin (Zocor) 40 mg. Denies side effects of muscle weakness or achiness. Her most recent lipid panels are reviewed. Cholesterol, Total (mg/dL) Date Value 12/01/2024 138 11/28/2021 190 HDL Cholesterol (mg/dL) Date Value 12/01/2024 44 11/28/2021 55 LDL Cholesterol (mg/dL) Date Value 12/01/2024 64 11/28/2021 95 Triglyceride (mg/dL) Date Value 12/01/2024 151 11/28/2021 199 Ms. Newman indicates a history of hypertension and states that she is feeling well and denies any symptoms referable to elevated blood pressure. Specifically denies headache, chest pain, palpitations, dyspnea, and peripheral edema. Patient denies any side effects of her medication(s) and is compliant with their regimen. Last 3 Encounter BP Readings: Date: BP: 12/05/2024 110/60 06/04/2024 154/70 01/15/2024 166/71 She watches her diet for sodium, low fat and low cholesterol some of the time. She does not check BP's generally. Gely gets sporadic irregular exercise. 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 Ch Frog Shaker, 90% blockage- unable to do stenting Diabetes mellitus type 2 in obese Diabetic feet (HCC) Gangrene (HCC) 2012 RIGHT FOOT Hypertension Mild non proliferative diabetic retinopathy (HCC) 06/11/2013 Both eyes, Dr. Ortiz [facility]-03/25/2020 left mild, right moderate Multiple thyroid nodules last US 01/2015 Peripheral artery disease (HCC) due to Diabetes mellitus, Dr. Kwaku Moscoso Rotator cuff syndrome of left shoulder Dr. Del[facility] PAST SURGICAL HISTORY Procedure Laterality Date AMPUTATION TOE INTERPHALANGEAL JOINT 01-01-2013 left 5th toe due to diabetes gangrene ARTHROSCOPY KNEE DIAGNOSTIC W/WO SYNOVIAL BX SPX 12/31/13 Arthroscopy, knee lt COLONOSCOPY FLX DX W/COLLJ SPEC WHEN PFRMD 11-21-13 tubular adenomas, repeat in 3 years COLONOSCOPY FLX DX W/COLLJ SPEC WHEN PFRMD 10/25/2016 ESOPHAGOGASTRODUODENOSCOPY TRANSORAL DIAGNOSTIC 10/25/2016 EXC TUMOR SOFT TISS FOREARM AND/WRIST SUBQ 3+CM 09/08/14 Exc. right olecrenon dermal/SC mass FNA WITH IMAGING 03/17/15 U/S FNA bilateral thyroid PAST SURGICAL HISTORY OF Left foot - diabetic PAST SURGICAL HISTORY OF Left 06/2015 TKA PAST SURGICAL HISTORY OF Left 10/2016 excision of bone REVSC OPN/PRG FEM/POP W/ANGIOPLASTY UNI 12-31-12 RIGHT FOOT REVSC OPN/PRQ FEM/POP W/ATHRC/ANGIOP SM VSL 02-10-13 right leg REVSC OPN/PRQ FEM/POP W/ATHRC/ANGIOP SM VSL 04-08-13 ROTATOR CUFF REPAIR 03/11/[address] [facility] CATH[facility] EA 1ST ORD ABDL PEL/LXTR ART BRNCH 06-07-16 APLL Social History Tobacco Use Smoking status: Former Current packs/day: 0.00 Average packs/day: 0.5 packs/day for 45.0 years (22.5 ttl pk-yrs) Types: Cigarettes Start date: 12/20/1967 Quit date: 12/20/2012 Years since quittin.9 Smokeless tobacco: Never Substance Use Topics Alcohol use: No Drug use: No FAMILY HISTORY Problem Relation Age of Onset Diabetes Maternal Grandmother Emphysema Mother Osteoporosis Mother Heart Father Stroke Father Allergies: ALLERGIES Allergen Reactions Sulfa (Sulfonamide * Unknown childhood Current Meds: simvastatin (ZOCOR) 40 mg tablet Take 1 tablet by mouth daily at bedtime. lisinopril (ZESTRIL) 20 mg tablet Take 1 tablet by mouth once daily. gabapentin (NEURONTIN) 600 mg tablet Take 1 tablet by mouth three times a day for 120 days. glimepiride (AMARYL) 4 mg tablet Take 1 tablet by mouth daily with breakfast. metFORMIN (GLUCOPHAGE) 500 mg tablet Take 1 tablet by mouth two times a day with meals. hydroCHLOROthiazide 25 mg tablet Take 1 tablet by mouth once daily. estradiol (ESTRACE) 0.01 % (0.1 mg/gram) vaginal cream Use 1 g vaginally two times a week. Blood Pressure Test Kit-Medium kit 1 Device once daily. Dx: Essential hypertension clopidogrel (PLAVIX) 75 mg tablet Take 75 mg by mouth once daily. ferrous sulfate 325 mg (65 mg iron) tablet Take 325 mg by mouth daily with breakfast. Cholecalciferol, Vitamin D3, 25 mcg (1,000 unit) cap Take 1,000 Units by mouth once daily. SACCHAROMYCES BOULARDII (PROBIOTIC, S.BOULARDII, ORAL) Take 1 capsule by mouth once daily. Cranberry Extract 300 mg tab Take by mouth. acetaminophen (TYLENOL) 325 mg tablet Take 650 mg by mouth every 6 hours as needed. ascorbic acid, vitamin C, (VITAMIN C) 500 mg tablet Take 1 tablet by mouth once daily. Gepbuyqi-Ymsw-Ubc-Folic Acid 18-0.4 mg tab Take 1 tablet by mouth once daily. metoprolol succinate ER (TOPROL XL) 50 mg 24 hr tablet Take 1 tablet by mouth once daily. omega-3 fatty acids 1,000 mg cap Take 1 capsule by mouth once daily. Aspirin 81 mg Tab Take 1 tablet by mouth once daily. Take with food. Review of Systems: The remainder of the review of systems is negative. PE: 12/05/24 0903 12/05/24 0939 BP: 138/64 110/60 Pulse: 60 Resp: 16 Temp: 36.1 C (97 F) TempSrc: Left Tympanic Weight: 72 kg (158 lb 11.7 oz) Gen: A&O, NAD, non-toxic appearing, Pleasant, cooperative HEENT: NT/AC, PERRLA, EOMs intact b/l, nares clear and patent b/l, pharynx without erythema, exudate or lesions. MMM, dentures in placed, Uvula midline. EACs without erythema or debris. TMs pearly carbajal with intact landmarks b/l. Hard of hearing Neck: supple, No cervical LAD, no thyromegaly, no carotid bruits CV: RRR, normal S1 and S2, no murmurs, no gallops, no rubs, Pulses 2+ and symmetric in UE and LE b/l Lungs: normal respiratory effort, CTA b/l, no wheezing or rhonchi or rales Abd: soft, NT, ND, +BS, no hepatosplenomegaly MS: reduced ROM b/l hips and lumbar spine and shoulders Neuro: CN II-XII intact b/l, strength 5/5 b/l UE and 4/5 b/l LE, DTRs 2/4 UE and LE, sensation diminished of legs. Skin: warm, dry, intact, No rashes or lesions on exposed skin. Foot exam: Monofilament abnormal on right and left feet. No edema ASSESSMENT/PLAN: 1. 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) - ICD9: 250.70, 443.81, ICD10: E11.51 (primary diagnosis) - Controlled - Continue current medications - Blood glucose monitoring on a twice daily schedule - Counseled on healthy diet and regular exercise 2. Dyslipidemia (high LDL; low HDL) - ICD9: 272.4, ICD10: E78.5 - Controlled - Continue current medications - Counseled on healthy diet and regular exercise - SIMVASTATIN 40 MG TABLET 3. Encounter for screening mammogram for malignant neoplasm of breast - ICD9: V76.12, ICD10: Z12.31 - Set up for mammogram, yearly mammogram recommended - Encouraged monthly BSE - ALEJANDRO SCREENING W BEN 4. Stage 3 chronic kidney disease, unspecified whether stage 3a or 3b CKD (HCC) - ICD9: 585.3, ICD10: N18.30 - eGFR: 53 Improving - Counseled on avoiding NSAIDs, adequate hydration - Counseled on low sodium diet 5. Chronic midline low back pain without sciatica - ICD9: 724.2, 338.29, ICD10: M54.50, G89.29 F/u with pain mgmt Continue same medications 6. Degeneration of intervertebral disc of lumbar region with discogenic back pain and lower extremity pain - ICD9: 722.52, ICD10: M51.362 F/u with pain mgmt Continue same medications 7. Essential hypertension - ICD9: 401.9, ICD10: I10 - Controlled - Continue current medications - Recommend home blood pressure monitoring, to bring results to next visit - Encouraged sodium restriction, DASH or Mediterranean diet - Recommend regular aerobic exercise 8. Vitamin D deficiency - ICD9: 268.9, ICD10: E55.9 stable 9. Multiple thyroid nodules - ICD9: 241.1, ICD10: E04.2 stable 10. Arthritis, multiple joint involvement - ICD9: 716.99, ICD10: M12.9 See above, causing her a lot of pain, seeing pain mgmt Rishi Vasquez DO To ER if develops chest pain, shortness of breath, or severe worsening of symptoms. Discussed risks, benefits, alternatives, and potential side effects of medications. Patient expressed understanding and agreed with the plan. Rishi Vasquez DO [address] [place] [address] documented in this encounterMain [facility] Center10-28-2024 Telephone encounter Note * Telephone Encounter - Meagan Martinez MA - 09/15/2024 10:28 AM EDT Call to pt and notified her of response below from Provider. Pt verbalized understanding. Meagan Martinez MA [facility]10-28-2024 Miscellaneous Notes* Telephone Encounter - Meagan Martinez MA - 09/15/2024 10:28 AM EDT Call to pt and notified her of response below from Provider. Pt verbalized understanding. Meagan Martinez MA * Telephone Encounter - Rishi Vasquez DO - 09/13/2024 12:24 PM EDT Okay with these considerations by specialist Rishi Vasquez DO * Telephone Encounter - Clemencia Chapman RN - 09/10/2024 2:55 PM EDT Patient calls to let provider know that she was to see Dr. Franco with pain management today and he was recommending changing gabapentin to Lyrica and considering Cymbalta or tramadol. Patient doesn't want him to prescribe anything without first checking with provider and what provider would recommend for her mid left buttocks pain. Patient reports that Dr. Franco might also reach out to provider. Requests call back at [phone] with provider response. Clemencia Chapman RN documented in this encounterMain [facility] Medical Center10-26-2024 Telephone encounter Note * Telephone Encounter - Rishi Vasquez DO - 09/13/2024 12:24 PM EDT Okay with these considerations by specialist Rishi Vasquez DO [facility]10-23-2024 Telephone encounter Note* Telephone Encounter - Clemencia Chapman RN - 09/10/2024 2:55 PM EDT Patient calls to let provider know that she was to see Dr. Franco with pain management today and he was recommending changing gabapentin to Lyrica and considering Cymbalta or tramadol. Patient doesn't want him to prescribe anything without first checking with provider and what provider would recommend for her mid left buttocks pain. Patient reports that Dr. Franco might also reach out to provider. Requests call back at [phone] with provider response. Clemencia Chapman RN [facility]10-01-2024 Miscellaneous Notes* Telephone Encounter - Leatha Long LPN - 08/19/2024 2:29 PM EDT Patient notified via voice mail message. Leatha Long LPN * Telephone Encounter - Jesenia Mcgee PA-C - 08/19/2024 1:35 PM EDT Please let patient know that she can take Fish Oil 1000 mg. Jesenia Mcgee PA-C 08/19/2024 * Telephone Encounter - Meagan Martinez MA - 08/18/2024 8:47 AM EDT Pt wrote into the office via [employer] on 08/16/24 with questions regarding medications. Please reviewmessage below and advise. Meagan Martinez MA Pt message: MANY YEARS AGO, 2013 TO BE EXACT, YOU PUT ME ON OMEGA 3 FROM [employer], 500 Mg. CANNOT FIND IT ANYWHERE. ALL I AM FINDING IS 1000Mg, 1200Mg, 1500Mg. AND HIGHER. DIDN'T KNOW WHAT TO BUY. WHAT WOULD YOU LIKE ME TO TAKE NOW. THANK YOU FOR YOUR TIME, WILL AWAIT YOUR ANSWER. HAVE A WONDERFUL WEEK. THE PAIN INJECTION WENT WELL AND HAS HELPED. GELY NEWMAN documented in this encounterMain Campus Medical Center10-01-2024 Telephone encounter Note * Telephone Encounter - Leatha Long LPN - 08/19/2024 2:29 PM EDT Patient notified via voice mail message. Leatha Long LPN [facility]10-01-[facility]24 Telephone encounter Note* Telephone Encounter - Jesenia Mcgee PA-C - 08/19/2024 1:35 PM EDT Please let patient know that she can take Fish Oil 1000 mg. Jesenia Mcgee PA-C 08/19/2024 [facility] Work Phone: [phone]) 427-956809-30-2024 Telephone encounter Note* Telephone Encounter - Meagan Martinez MA - 08/18/2024 8:47 AM EDT Pt wrote into the office via [employer] on 08/16/24 with questions regarding medications. Please reviewmessage below and advise. Meagan Martinez MA Pt message: MANY YEARS AGO, 2013 TO BE EXACT, YOU PUT ME ON OMEGA 3 FROM [employer], 500 Mg. CANNOT FIND IT ANYWHERE. ALL I AM FINDING IS 1000Mg, 1200Mg, 1500Mg. AND HIGHER. DIDN'T KNOW WHAT TO BUY. WHAT WOULD YOU LIKE ME TO TAKE NOW. THANK YOU FOR YOUR TIME, WILL AWAIT YOUR ANSWER. HAVE A WONDERFUL WEEK. THE PAIN INJECTION WENT WELL AND HAS HELPED. GELY NEWMAN [facility]09-30-2024 Telephone encounter Note* Telephone Encounter - Meagan Martinez MA - 08/18/2024 8:46 AM EDT Turned into TE and routed to PCP to advise. Meagan Martinez MA [facility]09-30[facility]2024 Miscellaneous Notes* Telephone Encounter - Meagan Martinez MA - 08/18/2024 8:46 AM EDT Turned into TE and routed to PCP to advise. Meagan Martinez MA documented in this encounterMain Campus Medical Center09-24-2024 Telephone encounter Note * Telephone Encounter - Nasim López LPN - 08/12/2024 4:58 PM EDT Pt. informed via My Chart [facility] Miscellaneous Notes* Telephone Encounter - Nasim Jauregui LPN - 08/12/2024 4:58 PM EDT Pt. informed via My Chart * Telephone Encounter - Rishi Vasquez DO - 08/12/2024 4:54 PM EDT Patient has some chronic kidney disease stage 3, which is from her diabetes. She needs to make surethat the specialist doesn't think this will be a concern. Her GFR is 48 Rishi Melinda DO Pedro * Telephone Encounter - Meagan Martinez MA - 08/11/2024 3:45 PM EDT Pt wrote this message in addition to TE from 08/08/24. Please review and advise. Messages are fairlysimilar. Meagan Martinez MA Pt message: DR. VASQUEZ, DR. FRANCO WANTS ME TO HAVE A PAIN INJECTION ON SUNDAY THE . HE WAS ASKING ME IF I HAVE ISSUES WITH MY KIDNEYS. THAT SCARES ME A LITTLE.. I REALLY DON'T WANT TO DO IT UNLESS YOU SIGN OFF ON IT. THE NAME OF THE MEDICATION IS ISCHROLBARSA. THE INSURENCE COMPANY SAID IT IS A STEROID. WHAT DO YOU THINK. I AM GOING TO CALL AND CANCEL THE APPOINTMENT FOR SUNDAY AND RESCHEDULE FOR ANOTHER DAY AND HOPETHAT I HEAR FROM YOU. THANK YOU FOR YOUR TIME AND UNDERSTANDING ON THE ISSUE. WILL AWAIT YOUR REPLY GELY NEWMAN * Telephone Encounter - Hina Lomeli RN - 08/08/2024 8:23 AM EDT Patient calls and states that she saw pain management yesterday. Pain management is wanting her to get a back injection next Sunday. Pain management doctor was asking if she has kidney issues. Patient asking if PCP thinks that getting back injection is ok to do with her health history? Patient states that reply can be sent tm my chart message. Please review and advise, Hina Lomeli RN documented in this encounterMain Campus Medical Center09-24-2024 Telephone encounter Note * Telephone Encounter - Rishi Vasquez DO - 08/12/2024 4:54 PM EDT Patient has some chronic kidney disease stage 3, which is from her diabetes. She needs to make surethat the specialist doesn't think this will be a concern. Her GFR is 48 Rishi Vasquez DO [facility] Telephone encounter Note* Telephone Encounter - Meagan Martinez MA - 08/11/2024 3:45 PM EDT Pt wrote this message in addition to TE from 08/08/24. Please review and advise. Messages are fairlysimilar. Meagan Martinez MA Pt message: DR. VASQUEZ, DR. FRANCO WANTS ME TO HAVE A PAIN INJECTION ON SUNDAY THE . HE WAS ASKING ME IF I HAVE ISSUES WITH MY KIDNEYS. THAT SCARES ME A LITTLE.. I REALLY DON'T WANT TO DO IT UNLESS YOU SIGN OFF ON IT. THE NAME OF THE MEDICATION IS ISCHROLBARSA. THE INSURENCE COMPANY SAID IT IS A STEROID. WHAT DO YOU THINK. I AM GOING TO CALL AND CANCEL THE APPOINTMENT FOR SUNDAY AND RESCHEDULE FOR ANOTHER DAY AND HOPETHAT I HEAR FROM YOU. THANK YOU FOR YOUR TIME AND UNDERSTANDING ON THE ISSUE. WILL AWAIT YOUR REPLY GELY NEWMAN [facility]-20[facility]20[facility] Telephone encounter Note* Telephone Encounter - Hina Lomeli RN - 08/08/2024 8:23 AM EDT Patient calls and states that she saw pain management yesterday. Pain management is wanting her to get a back injection next Sunday. Pain management doctor was asking if she has kidney issues. Patient asking if PCP thinks that getting back injection is ok to do with her health history? Patient states that reply can be sent tm my chart message. Please review and advise, Hina Lomeli RN [facility]07-26[facility] Telephone encounter Note* Telephone Encounter - Nasim López LPN - 06/13/2024 11:14 AM EDT Needs referral faxed to [facility] for Pain Management. This has been faxed. [facility]26[facility] Miscellaneous Notes* Telephone Encounter - Nasim Jauregui LPN - 06/13/2024 11:14 AM EDT Needs referral faxed to [facility] for Pain Management. This has been faxed. documented in this encounterMain Campus Medical Center07-23-2024 NoteHNO ID: [id number] Author: ?, ?, ? Service: ? Author Type: ? Type: Progress Notes Filed: 06/10/2024 13:07 Note Text: POPULATION HEALTH NAVIGATION OUTREACH Action/[facility] Support: Called pt to schedule an appt in Pain Management. Lvm for pt to call [phone]. Reason for Outreach Care Gap/HCC or Scheduling Wellness Visits Care Gaps due: Specialty Scheduling Patient Contacted: Unable or unnecessary to reach patient: Left message Andel message sent Navigation Signature: Gordon Min June 10, 2024 1:06 [facility]07-23-2024 History of Present illness Narrative* Gordon Min - 06/10/2024 1:06 PM EDT POPULATION HEALTH NAVIGATION OUTREACH Action/[facility] Support: Called pt to schedule an appt in Pain Management. Lvm for pt to call [phone]. Reason for Outreach Care Gap/HCC or Scheduling Wellness Visits Care Gaps due: Specialty Scheduling Patient Contacted: Unable or unnecessary to reach patient: Left message MyChart message sent Navigation Signature: Gordon Min June 10, 2024 1:06 PM documented in this encounterMain [facility] Center07-23-2024 NotePatient Outreach (NETNAV) GELY NEWMAN ([id number]) 1950 F Date Time Provider Department 06/10/24 NO PCP NETNAV During your visit today, we recorded the following information about you: Gordon Min 06/10/2024 1:07 PM Signed POPULATION HEALTH NAVIGATION OUTREACH Action/[facility] Support: Called pt to schedule an appt in Pain Management. [facility] for pt to call [phone]. Reason for Outreach Care Gap/HCC or Scheduling Wellness Visits Care Gaps due: Specialty Scheduling Patient Contacted: Unable or unnecessary to reach patient: Left message Andel message sent Navigation Signature: Gordon Min June 10, 2024 1:06 PM Allergies As of Date: 06/10/2024 Noted Allergy Reaction SULFA (SULFONAMIDE ANTIBIOTICS) 01/13/2013 16 - Unknown Comments: childhood Date Reviewed: 06/04/2024 Reviewed by: Nasim López LPN - Fully Assessed Prescriptions as of 06/10/2024 - gabapentin (NEURONTIN) 600 mg tablet Take 1 tablet by mouth three times a day for 120 days. - glimepiride (AMARYL) 4 mg tablet Take 1 tablet by mouth daily with breakfast. - metFORMIN (GLUCOPHAGE) 500 mg tablet Take 1 tablet by mouth two times a day with meals. - lisinopril (ZESTRIL) 20 mg tablet Take 1 tablet by mouth once daily. - simvastatin (ZOCOR) 40 mg tablet Take 1 tablet by mouth daily at bedtime. - hydroCHLOROthiazide 25 mg tablet Take 1 tablet by mouth once daily. - estradiol (ESTRACE) 0.01 % (0.1 mg/gram) vaginal cream Use 1 g vaginally two times a week. - Blood Pressure Test Kit-Medium kit 1 Device once daily. Dx: Essential hypertension - clopidogrel (PLAVIX) 75 mg tablet Take 75 mg by mouth once daily. - ferrous sulfate 325 mg (65 mg iron) tablet Take 325 mg by mouth daily with breakfast. - Cholecalciferol, Vitamin D3, 25 mcg (1,000 unit) cap Take 1,000 Units by mouth once daily. - SACCHAROMYCES BOULARDII (PROBIOTIC, S.BOULARDII, ORAL) Take 1 capsule by mouth once daily. - Cranberry Extract 300 mg tab Take by mouth. - acetaminophen (TYLENOL) 325 mg tablet Take 650 mg by mouth every 6 hours as needed. - ascorbic acid, vitamin C, (VITAMIN C) 500 mg tablet Take 1 tablet by mouth once daily. - Askebtxd-Bvsd-Rri-Folic Acid 18-0.4 mg tab Take 1 tablet by mouth once daily. - metoprolol succinate ER (TOPROL XL) 50 mg 24 hr tablet Take 1 tablet by mouth once daily. - omega-3 fatty acids 1,000 mg cap Take 1 capsule by mouth once daily. - Aspirin 81 mg Tab Take 1 tablet by mouth once daily. Take with food. Problem List As Of Date 06/10/2024 Noted Resolved Peripheral vascular occlusive disease [I73.9] 01/13/2013 Diabetes mellitus type 2 with peripheral artery*01/28/2013 Hypertension [I10] 01/28/2013 Overweight (BMI 25.0-29.9) [E66.3] 05/01/2013 Dyslipidemia (high LDL; low HDL) [E78.5] 07/01/2013 Abnormal nuclear stress test [R94.39] 12/09/2013 Carotid atherosclerosis, bilateral [I65.23] 01/21/2015 Multinodular thyroid [E04.2] 02/26/2015 Essential hypertension [I10] 11/30/2015 10/24/2016 Occult blood in stools [R19.5] 10/05/2016 Coronary artery disease [I25.10] 10/24/2016 CKD stage G3b/A1, GFR 30-44 and albumin creatin*01/29/2017 Chronic osteomyelitis with draining sinus, left*01/29/2017 06/04/2024 Situational depression [F43.21] 01/29/2017 Benign paroxysmal positional vertigo [H81.10] 11/14/2017 11/30/2021 BPPV (benign paroxysmal positional vertigo), un*02/25/2018 Anemia [D64.9] 02/25/2018 Vitamin D deficiency [E55.9] 08/28/2018 Essential hypertension [I10] 08/28/2018 Infected sebaceous cyst [L72.3, L08.9] 02/26/2019 Coronary artery disease involving [place] heart *05/28/2019 Abnormal urine odor [R82.90] 05/28/2019 Stage 3 chronic kidney disease (HCC) [N18.30] 12/03/2019 Fatigue [R53.83] 12/03/2019 Arthritis, multiple joint involvement [M12.9] 05/31/2021 Recurrent UTI (urinary tract infection) [N39.0] 05/31/2021 Urgency incontinence [N39.41] 12/02/2021 Biceps rupture, proximal, left, initial encount*12/05/2022 Dizziness [R42] 12/05/2022 Chronic kidney disease, stage 3a (HCC) [N18.31] 12/05/2022 Chronic bilateral low back pain with bilateral *12/05/2023 Multiple thyroid nodules [E04.2] 12/05/2023 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*06/04/2024 Encounter Status:Closed by GORDON MIN on 06/10/24[facility]07-17-2024 Telephone encounter Note* Telephone Encounter - Keisha Coronado RN - 06/04/2024 3:59 PM EDT Spoke with patient. Given message from provider's office. Patient verbalizes understanding. Keisha Coronado RN [facility]24 Miscellaneous Notes* Telephone Encounter - Keisha Coronado RN - 06/04/2024 3:59 PM EDT Spoke with patient. Given message from provider's office. Patient verbalizes understanding. Keisha Coronado RN * Telephone Encounter - Aiyana Gaffney LPN - 06/04/2024 2:49 PM EDT Phoned patient left message to return call and ask to speak to a nurse. * Telephone Encounter - Rishi Vasquez DO - 06/04/2024 2:36 PM EDT Please inform patient that her mammogram is normal/negative. She will need routine screening mammogram in 1 year. Thanks Rishi Vasquez DO' documented in this encounterMain [facility]07-[facility]-2024 Telephone encounter Note * Telephone Encounter - Aiyana Gaffney LPN - 06/04/2024 2:49 PM EDT Phoned patient left message to return call and ask to speak to a nurse. [facility]07[facility] Telephone encounter Note* Telephone Encounter - Rishi Vasquez DO - 06/04/2024 2:36 PM EDT Please inform patient that her mammogram is normal/negative. She will need routine screening mammogram in 1 year. Thanks Rishi Vasquez DO' [facility]07-17-[facility]24 Note* Letter - Coordinator, Mammography - 06/04/2024 2:01 PM EDT June 04, 2024 PID: [id number] Gely Newman [address] [place] [address] Dear Ms. Newman, We are pleased to inform you that the results of your recent breast imaging exam on 06/03/2024 are normal. Breast tissue can be either dense or not dense. Dense tissue makes it harder to find breast cancer on a mammogram and also raises the risk of developing breast cancer. Your breast tissue is not dense. Talk to your healthcare provider about breast density, risks for breast cancer, and your individual situation. Early detection of cancer is very important. We also understand recommendations regarding breast cancer screening are controversial. Please discuss with your primary care provider which strategy is best for you and whether a mammogram is right for you. Your imaging studies and report will be kept on file at [facility] as part of your permanent medical record and are available for your continuing care. Thank you for allowing us to help in meeting your health care needs. Sincerely, Dr. Monteiro Interpreting Radiologist [facility] (Normal over 40) [facility]07-17-2024 Miscellaneous Notes* Letter - Coordinator, Mammography - 06/04/2024 2:01 PM EDT June 04, 2024 PID: [id number] Gely Newman [address] [place] [address] Dear Ms. Newman, We are pleased to inform you that the results of your recent breast imaging exam on 06/03/2024 are normal. Breast tissue can be either dense or not dense. Dense tissue makes it harder to find breast cancer on a mammogram and also raises the risk of developing breast cancer. Your breast tissue is not dense. Talk to your healthcare provider about breast density, risks for breast cancer, and your individual situation. Early detection of cancer is very important. We also understand recommendations regarding breast cancer screening are controversial. Please discuss with your primary care provider which strategy is best for you and whether a mammogram is right for you. Your imaging studies and report will be [facility] at [facility] as part of your permanent medical record and are available for your continuing care. Thank you for allowing us to help in meeting your health care needs. Sincerely, Dr. Monteiro Interpreting Radiologist [facility] (Normal over 40) documented in this encounterMain Campus Medical Center07-17-2024 NoteHNO ID: [id number] Author: RISHI VASQUEZ, DO Service: ? Author Type: Physician Type: Progress Notes Filed: 06/04/2024 11:15 Note Text: Patient presents with: 6 Month Exam HPI: Gely Newman is a 74 year old female who presents to the office today for review of health conditions. 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 Has been doing PHYSICAL THERAPY, trying to maintain good sitting and laying positioning to help with pain as well. No bowel or bladder changes. Does have tingling in feet. Willing to get pain mgmt opinion for injections etc. Ms. Newman has past history of diabetes. Since our last visit she denies excessive thirst or increased frequency of urination, chest pain or dyspnea , new or unusual visual symptoms, and low sugar/hypoglycemic reactions. Depression- no. Follows a diabetic diet some of the time. She is compliant with medication(s) and is tolerating med(s) without any side effects. She reports checking her glucose on a once a day schedule with sugars in the <150 range. Patient's last HgA1C was Hemoglobin A1C (%) Date Value 05/30/2024 6.2 11/30/2023 7.0 11/28/2021 7.0 05/24/2021 6.7 Hemoglobin A1C (POCT) (%) Date Value 05/31/2022 6.2 ) Last Ophthalmology exam was within the past 12 months Ms. Newman reports history of hyperlipidemia. Current therapy includes simvastatin (Zocor) 40 mg. Denies side effects of muscle weakness or achiness. Her most recent lipid panels are reviewed. Cholesterol, Total (mg/dL) Date Value 05/30/2024 151 11/28/2021 190 HDL Cholesterol (mg/dL) Date Value 05/30/2024 47 11/28/2021 55 LDL Cholesterol (mg/dL) Date Value 05/30/2024 71 11/28/2021 95 Triglyceride (mg/dL) Date Value 05/30/2024 165 11/28/2021 199 Ms. Newman indicates a history of hypertension and states that she is feeling well and denies any symptoms referable to elevated blood pressure. Specifically denies headache, chest pain, palpitations, dyspnea, and peripheral edema. Patient denies any side effects of her medication(s) and is compliant with their regimen. Last 3 Encounter BP Readings: Date: BP: 06/04/2024 154/70 01/15/2024 166/71 12/05/2023 150/80 She watches her diet for sodium, low fat and low cholesterol some of the time. She does not check BP's generally. Gely gets minimal exercise. 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 Ch Frog Shaker, 90% blockage- unable to do stenting Diabetes mellitus type 2 in obese Diabetic feet (HCC) Gangrene (HCC) 2012 RIGHT FOOT Hypertension Mild non proliferative diabetic retinopathy (HCC) 06/11/2013 Both eyes, Dr. Ortiz [facility]-03/25/2020 left mild, right moderate Multiple thyroid nodules last US 01/2015 Peripheral artery disease (HCC) due to Diabetes mellitus, Dr. Kwaku Moscoso Rotator cuff syndrome of left shoulder Dr. Regi Montes [facility] PAST SURGICAL HISTORY Procedure Laterality Date AMPUTATION TOE INTERPHALANGEAL JOINT 01-01-2013 left 5th toe due to diabetes gangrene ARTHROSCOPY KNEE DIAGNOSTIC W/WO SYNOVIAL BX SPX 12/31/13 Arthroscopy, knee lt COLONOSCOPY FLX DX W/COLLJ SPEC WHEN PFRMD 11-21-13 tubular adenomas, repeat in 3 years COLONOSCOPY FLX DX W/COLLJ SPEC WHEN PFRMD 10/25/2016 ESOPHAGOGASTRODUODENOSCOPY TRANSORAL DIAGNOSTIC 10/25/2016 EXC TUMOR SOFT TISS FOREARM AND/WRIST SUBQ 3+CM 09/08/14 Exc. right olecrenon dermal/SC mass FNA WITH IMAGING 03/17/15 U/S FNA bilateral thyroid PAST SURGICAL HISTORY OF Left foot - diabetic PAST SURGICAL HISTORY OF Left 06/2015 TKA PAST SURGICAL HISTORY OF Left 10/2016 excision of bone REVSC OPN/PRG FEM/POP W/ANGIOPLASTY UNI 12-31-12 RIGHT FOOT REVSC OPN/PRQ [facility]13 right leg REVSC OPN/PRQ FEM/POP W/ATHRC/ANGIOP [facility] 04-08-13 ROTATOR CUFF REPAIR 03/11/14 Dr. Regi Thompson [facility] CATHJ EA 1ST ORD ABDL PEL/LXTR ART BRNCH 06-07-16 APLL Social History Tobacco Use Smoking status: Former Packs/day: 0.50 Years: 45.00 Additional pack years: 0.00 Total pack years: 22.50 Types: Cigarettes Quit date: 12/20/2012 Years since quittin.4 Smokeless tobacco: Never Substance Use Topics Alcohol use: No Drug use: No FAMILY HISTORY Problem Relation Age of Onset Diabetes Maternal Grandmother Emphysema Mother Osteoporosis Mother Heart Father Stroke Father Allergies: ALLERGIES Allergen Reactions Sulfa (Sulfonamide * Unknown childhood Current Meds: gabapentin (NEURONTIN) 600 mg tablet Take 1 tablet by mouth three times a day for 120 days. glimepiride (AMARYL) 4 mg tablet Take 1 tablet by mouth daily with breakfast. metFORMIN (GLUCOPHAGE) 500 mg tablet Take 1 tablet by mouth two t (more content not included)...[facility]07-17-2024 History of Present illness Narrative* Rishi Vasquez, DO - 06/04/2024 11:11 AM EDT Patient presents with: 6 Month Exam HPI: Gely Newman is a 74 year old female who presents to the office today for review of health conditions. 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 Has been doing PHYSICAL THERAPY, trying to maintain good sitting and laying positioning to help with pain as well. No bowel or bladder changes. Does have tingling in feet. Willing to get pain mgmt opinion for injections etc. Ms. Newman has past history of diabetes. Since our last visit she denies excessive thirst or increased frequency of urination, chest pain or dyspnea , new or unusual visual symptoms, and low sugar/hypoglycemic reactions. Depression- no. Follows a diabetic diet some of the time. She is compliant with medication(s) and is tolerating med(s) without any side effects. She reports checking her glucose on a once a day schedule with sugars in the <150 range. Patient's last HgA1C was Hemoglobin A1C (%) Date Value 05/30/2024 6.2 11/30/2023 7.0 11/28/2021 7.0 05/24/2021 6.7 Hemoglobin A1C (POCT) (%) Date Value 05/31/2022 6.2 ) Last Ophthalmology exam was within the past 12 months Ms. Newman reports history of hyperlipidemia. Current therapy includes simvastatin (Zocor) 40 mg. Denies side effects of muscle weakness or achiness. Her most recent lipid panels are reviewed. Cholesterol, Total (mg/dL) Date Value 05/30/2024 151 11/28/2021 190 HDL Cholesterol (mg/dL) Date Value 05/30/2024 47 11/28/2021 55 LDL Cholesterol (mg/dL) Date Value 05/30/2024 71 11/28/2021 95 Triglyceride (mg/dL) Date Value 05/30/2024 165 11/28/2021 199 Ms. Newman indicates a history of hypertension and states that she is feeling well and denies any symptoms referable to elevated blood pressure. Specifically denies headache, chest pain, palpitations, dyspnea, and peripheral edema. Patient denies any side effects of her medication(s) and is compliant with their regimen. Last 3 Encounter BP Readings: Date: BP: 06/04/2024 154/70 01/15/2024 166/71 12/05/2023 150/80 She watches her diet for sodium, low fat and low cholesterol some of the time. She does not check BP's generally. Gely gets minimal exercise. 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 Ch Frog Shaker, 90% blockage- unable to do stenting Diabetes mellitus type 2 in obese Diabetic feet (HCC) Gangrene (HCC) 2012 RIGHT FOOT Hypertension Mild non proliferative diabetic retinopathy (HCC) 06/11/2013 Both eyes, Dr. Ortiz [facility]-03/25/2020 left mild, right moderate Multiple thyroid nodules last US 01/2015 Peripheral artery disease (HCC) due to Diabetes mellitus, Dr. Kwaku Moscoso Rotator cuff syndrome of left shoulder Dr. Deluna [facility] PAST SURGICAL HISTORY Procedure Laterality Date AMPUTATION TOE INTERPHALANGEAL JOINT 01-01-2013 left 5th toe due to diabetes gangrene ARTHROSCOPY KNEE DIAGNOSTIC W/WO SYNOVIAL BX SPX 12/31/13 Arthroscopy, knee lt COLONOSCOPY FLX DX W/COLLJ SPEC WHEN PFRMD 1-3-14 tubular adenomas, repeat in 3 years COLONOSCOPY FLX DX W/COLLJ SPEC WHEN PFRMD 10/25/2016 ESOPHAGOGASTRODUODENOSCOPY TRANSORAL DIAGNOSTIC 10/25/2016 EXC TUMOR SOFT TISS FOREARM AND/WRIST SUBQ 3+CM 09/08/14 Exc. right olecrenon dermal/SC mass FNA WITH IMAGING 03/17/15 U/S FNA bilateral thyroid PAST SURGICAL HISTORY OF Left foot - diabetic PAST SURGICAL HISTORY OF Left 06/2015 TKA PAST SURGICAL HISTORY OF Left 10/2016 excision of bone REVSC OPN/PRG FEM/POP W/ANGIOPLASTY UNI 12-31-12 RIGHT FOOT REVSC OPN/PRQ FEM/POP W/ATHRC/ANGIOP [facility] 02-10-13 right leg REVSC OPN/PRQ FEM/POP W/ATHRC/ANGIOP [facility] 04-08-13 ROTATOR CUFF REPAIR 03/11/[address] [facility] [facility] 1ST ORD ABDL PEL/LXTR ART BRNC 06-07-16 APLL Social History Tobacco Use Smoking status: Former Packs/day: 0.50 Years: 45.00 Additional pack years: 0.00 Total pack years: 22.50 Types: Cigarettes Quit date: 12/20/2012 Years since quittin.4 Smokeless tobacco: Never Substance Use Topics Alcohol use: No Drug use: No FAMILY HISTORY Problem Relation Age of Onset Diabetes Maternal Grandmother Emphysema Mother Osteoporosis Mother Heart Father Stroke Father Allergies: ALLERGIES Allergen Reactions Sulfa (Sulfonamide * Unknown childhood Current Meds: gabapentin (NEURONTIN) 600 mg tablet Take 1 tablet by mouth three times a day for 120 days. glimepiride (AMARYL) 4 mg tablet Take 1 tablet by mouth daily with breakfast. metFORMIN (GLUCOPHAGE) 500 mg tablet Take 1 tablet by mouth two times a day with meals. lisinopril (ZESTRIL) 20 mg tablet Take 1 tablet by mouth once daily. simvastatin (ZOCOR) 40 mg tablet Take 1 tablet by mouth daily at bedtime. hydroCHLOROthiazide 25 mg tablet Take 1 tablet by mouth once daily. estradiol (ESTRACE) 0.01 % (0.1 mg/gram) vaginal cream Use 1 g vaginally two times a week. Blood Pressure Test Kit-Medium kit 1 Device once daily. Dx: Essential hypertension clopidogrel (PLAVIX) 75 mg tablet Take 75 mg by mouth once daily. ferrous sulfate 325 mg (65 mg iron) tablet Take 325 mg by mouth daily with breakfast. Cholecalciferol, Vitamin D3, 25 mcg (1,000 unit) cap Take 1,000 Units by mouth once daily. SACCHAROMYCES BOULARDII (PROBIOTIC, S.BOULARDII, ORAL) Take 1 capsule by mouth once daily. Cranberry Extract 300 mg tab Take by mouth. acetaminophen (TYLENOL) 325 mg tablet Take 650 mg by mouth every 6 hours as needed. ascorbic acid, vitamin C, (VITAMIN C) 500 mg tablet Take 1 tablet by mouth once daily. Mvvdyblo-Tnkj-Jjf-Folic Acid 18-0.4 mg tab Take 1 tablet by mouth once daily. metoprolol succinate ER (TOPROL XL) 50 mg 24 hr tablet Take 1 tablet by mouth once daily. omega-3 fatty acids 1,000 mg cap Take 1 capsule by mouth once daily. Aspirin 81 mg Tab Take 1 tablet by mouth once daily. Take with food. Review of Systems: The remainder of the review of systems is negative. PE: 06/04/24 0943 BP: 154/70 Pulse: 64 Resp: 16 Temp: (!) 35.9 C (96.6 F) TempSrc: Right Tympanic Weight: 69.4 kg (153 lb) Gen: A&O, NAD, non-toxic appearing, cooperative HEENT: NT/AC, PERRLA, EOMs intact b/l, nares clear and patent b/l, pharynx without erythema, exudate or lesions. Uvula midline. MMM Neck: supple, No cervical LAD, no thyromegaly, no carotid bruits CV: RRR, normal S1 and S2, no murmurs, no gallops, no rubs, Pulses 2+ and symmetric in UE and LE b/l Lungs: normal respiratory effort, CTA b/l, no wheezing or rhonchi or rales Abd: soft, NT, ND, +BS, no hepatosplenomegaly MS arthritis changes of spine and peripheral joints, gait is stable with use of cane but it is slowed Neuro: CN II-XII intact b/l, strength 5/5 b/l UE and LE, DTRs 2/4 UE and LE, sensation intact. Skin: warm, dry, intact, No rashes or lesions on exposed skin. Foot exam: Monofilament abnormal on right and left feet. No edema ASSESSMENT/PLAN: 1. Chronic midline low back pain without sciatica - ICD9: 724.2, 338.29, ICD10: M54.50, G89.29 (primary diagnosis) Referral for opinion for injections - CONSULT TO PAIN MGT 2. Peripheral vascular occlusive disease (HCC) - ICD9: 443.9, ICD10: I73.9 rx refilled, chronic - GABAPENTIN 600 MG TABLET - COMPLETE BLOOD COUNT 3. 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) - ICD9: 250.70, 443.81, ICD10: E11.51 - Controlled - Continue current medications - Blood glucose monitoring on a once daily schedule - METFORMIN 500 MG TABLET - HEMOGLOBIN A1C - COMPREHENSIVE METABOLIC PANEL - VITAMIN B12 4. DDD (degenerative disc disease), lumbar - ICD9: 722.52, ICD10: M51.36 Chronic low back pain - Ice for localized tenderness - Warm moist heat for 20 min three times a day - Patient given instructions follow up with pain mgmt - CONSULT TO PAIN MGT 5. Essential hypertension - ICD9: 401.9, ICD10: I10 - Controlled - Continue current medications - Recommend home blood pressure monitoring, to bring results to next visit - Encouraged sodium restriction, DASH or Mediterranean diet - Recommend regular aerobic exercise 6. Stage 3 chronic kidney disease, unspecified whether stage 3a or 3b CKD (HCC) - ICD9: 585.3, ICD10: N18.30 - Albuminuria: due for urine ACR - Counseled on avoiding NSAIDs, adequate hydration 7. 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) - ICD9: 707.15, ICD10: L97.522 No current issue 8. Dyslipidemia (high LDL; low HDL) - ICD9: 272.4, ICD10: E78.5 - Improving control - Continue current medications - Counseled on healthy diet and regular exercise - LIPID PANEL BASIC 9. Vitamin D deficiency - ICD9: 268.9, ICD10: E55.9 - VITAMIN D 25 HYDROXY 10. Multiple thyroid nodules - ICD9: 241.1, ICD10: E04.2 - THYROID STIMULATING HORMONE - T4 FREE/FREE THYROXINE Rishi L Vasquez, DO To ER if develops chest pain, shortness of breath, or severe worsening of symptoms. Discussed risks, benefits, alternatives, and potential side effects of medications. Patient expressed understanding and agreed with the plan. Rishi Vasquez DO [address] [place] [address] documented in this encounterMain [facility] Center07-16-[facility]24 History of Present illness Narrative* Elizabeth Sandoval RT(R) - 06/03/2024 9:30 AM EDT Radiology Service Progress Note PATIENT NAME: Gely Newman DATE OF SERVICE: June 03, 2024 TIME: 9:08 AM PATIENT IDENTITY VERIFICATION COMPLETED USING TWO (2) IDENTIFIERS: Name and Date of confirmedby patient verbally. FALL SCREENING: Has the patient had 2 falls in the last year or 1 fall with injury or currently using an Ambulatory Assistive Device (Walker, Cane, Wheelchair, Crutches, etc.)? No PATIENT GENDER DATA: Female. status: : No status: NO. PATIENT RELEVANT IMPLANT DATA REVIEWED: Not Applicable PATIENT PRESENTS WITH AN IMPLANTABLE OR ATTACHED MANAGER BAKERY: No RADIOLOGY DEPARTMENT: Mammography PERIPHERAL IV DATA: Not applicable SIGNED BY: RT Mono(Chau) June 03, 2024 9:08 AM documented in this encounterMain Campus Medical Center07-16-2024 NoteHNO ID: [id number] Author: ELIZABETH SANDOVAL RT(R) Service: ? Author Type: Technologist Type: Progress Notes Filed: 06/03/2024 09:08 Note Text: Radiology Service Progress Note PATIENT NAME: Gely Newman DATE OF SERVICE: June 03, 2024 TIME: 9:08 AM PATIENT IDENTITY VERIFICATION COMPLETED USING TWO (2) IDENTIFIERS: Name and Date of confirmed by patient verbally. FALL SCREENING: Has the patient had 2 falls in the last year or 1 fall with injury or currently using an Ambulatory Assistive Device (Walker, Cane, Wheelchair, Crutches, etc.)? No PATIENT GENDER DATA: Female. status: : No status: NO. PATIENT RELEVANT IMPLANT DATA REVIEWED: Not Applicable PATIENT PRESENTS WITH AN IMPLANTABLE OR ATTACHED MANAGER BAKERY: No RADIOLOGY DEPARTMENT: Mammography PERIPHERAL IV DATA: Not applicable SIGNED BY: RT Mono(R) June 03, 2024 9:08 [facility]07-01-2024 Telephone encounter Note* Telephone Encounter - Joanie Rosario LPN - 05/19/2024 12:29 PM EDT Pt was notified of such. [facility]07-01-2024 Miscellaneous Notes* Telephone Encounter - Joanie Rosario LPN - 05/19/2024 12:29 PM EDT Pt was notified of such. * Telephone Encounter - Clary Andres APRN.CNP - 05/19/2024 11:31 AM EDT Labs are signed as pended. Please make sure she knows these are to be fasting. Thank you, Clary Andres APRN.SHOEMAKING FINISHER * Telephone Encounter - Meagan Martinez MA - 05/19/2024 9:16 AM EDT Pt sent in [employer] message asking for lab orders for her upcoming appt 06/04/24. She would like these ordered so she can schedule lab appt. Please notify her once these have been ordered. Labs pended,please review and file. Meagan Martinez MA documented [facility] Telephone encounter Note * Telephone Encounter - Clary Andres APRN.CNP - 05/19/2024 11:31 AM EDT Labs are signed as pended. Please make sure she knows these are to be fasting. Thank you, Clary Andres APRN.SHOEMAKING FINISHER [facility]07-01-2024 Telephone encounter Note* Telephone Encounter - Meagan Martinez MA - 05/19/2024 9:16 AM EDT Pt sent in [employer] message asking for lab orders for her upcoming appt 06/04/24. She would like these ordered so she can schedule lab appt. Please notify her once these have been ordered. Labs pended,please review and file. Meagan Martinez MA [facility]07-01-2024 Telephone encounter Note* Telephone Encounter - Meagan Martinez MA - 05/19/2024 9:15 AM EDT Started TE and routed to Provider. Meagan Martinez MA [facility]07-01-2024 Miscellaneous Notes* Telephone Encounter - Meagan Martinez MA - 05/19/2024 9:15 AM EDT Started TE and routed to Provider. Meagan Martinez MA documented in [facility] Telephone encounter Note * Telephone Encounter - Michaela Millan MA - 03/24/2024 9:52 AM EDT Patient has been identified by name and date of : Yes, Provider Rishi Vasquez DO Date 2023 Time 9:52 AM Patient phones for refill(s): Requested Prescriptions Pending Prescriptions Disp Refills glimepiride (AMARYL) 4 mg tablet 30 tablet 11 Sig: Take 1 tablet by mouth daily with breakfast. Date of last office visit in primary care: 12/05/2023 Date of next office visit in primary care: 06/04/2024 Please advise. Thank you. Michaela Millan MA. [facility]05-06-2024 Miscellaneous Notes* Telephone Encounter - Michaela Millan MA - 03/24/2024 9:52 AM EDT Patient has been identified by name and date of : Yes, Provider Rishi Vasquez, Date 2023 Time 9:52 AM Patient phones for refill(s): Requested Prescriptions Pending Prescriptions Disp Refills glimepiride (AMARYL) 4 mg tablet 30 tablet 11 Sig: Take 1 tablet by mouth daily with breakfast. Date of last office visit in primary care: 12/05/2023 Date of next office visit in primary care: 06/04/2024 Please advise. Thank you. Michaela Millan MA. documented in this encounter[facility]05-[facility] History of Present illness Narrative* Anselmo Marr PT - 03/20/2024 2:31 PM EDT Images from the original note were not included. Episode Visit Count: 8 Therapist That Will Accept/Oversee The Plan Of Care: Anselmo Marr PT Start of Care Date: 01/15/24 Onset Date: 10/15/23 Plan of Care Certification Date: 02/14/24 Next Certification Due Date: 03/13/24 Patient Identified by Name and Date of : Yes REHABILITATION AND SPORTS THERAPY PHYSICAL THERAPY DISCONTINUANCE OF CARE PLAN OF CARE UPDATE: Assessment: Gely Newman is discontinued from Physical Therapy services due to maximal benefit. and Patient/Clinician mutual decision to discontinue current plan of care.. Patient was seen for 8 visits from Start of Care Date: 01/15/24 to 03/20/2024 and treatment included: Therapeutic exercise, Neuromuscular re- education, Manual therapy, Self-fpc management, and Gait training. Updated: 02/14/24 and 03/20/24 Goals for Episode of Care: created on 01/15/24 through 02/26/24 Independent in home exercises. - MET Patient will decrease pain rating by 2 points to meet minimal clinical important difference for numeric pain rating scale. - Partially MET Restore pain-free lumbar ROM to WFL to allow for improved bending and lifting tolerance. - Partially MET Stand / Walk without limitations, without pain/symptoms. - Partially MET Sleep through night without pain/symptoms. - Partially MET Maintain proper sitting posture throughout session - Not MET Patient will increase strength of core/postural muscles to WFL to allow for improve ability to complete ADLs. - Partially MET Patient Goals: eliminate pain in low back and B LEs - Partially MET SUBJECTIVE: Pt reports that overall today is a bad day for her in general. She reports that her pain continues to fluctuate without explanation or consistent pattern. She reports that she does not have pain when she wakes up but after walking around her house, her pain increases. She continues to locate her pain in L buttock and across low back but this varies without explanation. Compared to herstatus at evaluation, she reports that she still has some good days and some bad days but currentlyshe has more good days than bad days now. She reports improved quality of sleep. Pain: Pain Pain Level: 5 Pain Location: Buttocks - Left Description: Dull, Sharp Frequency: Intermittent Post Treatment Pain Post Treatment Pain Level: No Change PROMIS Scales 03/20/2024 02/13/2024 01/12/2024 Higher is Better Phys Func - Score 44 (mild dysfunction) 43 (mild dysfunction) 39 (moderate dysfunction) Phys Func - Percentile 27 24 14 Self-Eff Symptom - Score 39 (Low) 46 (Average) 45 (Average) Self-Eff Symptom - Percentile 14 34 31 T-scores: mean of general population = 50. 5 points is clinically meaningfully difference Percentiles provide an indication of how the patient's score ranks in relation to the general population. Higher percentile rankings indicate better function/quality of life. 50th percentile is the average of the general population and indicates half of respondents had a worse score. OBJECTIVE MEASURES WITH LEVEL OF FUNCTION: Posture / Alignment Lumbo - Pelvic Alignment: In standing: ASIS and PSIS are level. R iliac crest is slightly lower. Significant R genu valgus is present with over pronation B. In supine: ASIS ae level and no LLD present. Spine Observations L Lumbar Spine Palpation Tenderness: Piriformis Lumbar Spine AROM Lumbar Flexion: Normal Lumbar Extension: Major limitation Lumbar R Side-Bend: Normal Lumbar L Side-Bend: Minimal limitation Lumbar R Rotation: Minimal limitation, Increased pain Lumbar L Rotation: Normal LE Flexibility Flexibility: Piriformis Flexibility R Piriformis Flexibility: 38 L Piriformis Flexibility: 41 Gait Gait Observation: antalgic but improved with cane. R genu valgus is the likely source of deviations. TREATMENT: Therapeutic Exercise: 1: [employer] StepOne seat #11 x6 minutes 2: supine B SKTC 3x30 seconds 3: supine DKTC 3x30 seconds 4: supine L piriformis stretching 3x30 seconds 5: supine isometric abdominal exercise via shoulder ext with 2 second holds 2x10 6: crunches in small range 2x10 7: Re-assessment completed and results reviewed with patient in detail. 8: HEP was reviewed in detail and continuation encouraged to tolerance. Pt was encouraged to contact therapist with any future questions or concerns Skilled Intervention: Patient was educated in proper exercise technique and purpose for exercises. Reviewed and educated patient on additions/changes for home exercise program as above (*). Skilled judgment was used in selection of appropriate interventions. Correct performance of therapeutic exercises was facilitated with verbal, visual, and tactile cuing. Patient education as noted. Billing Therapeutic Exercise Treatment Minutes: 40 Skilled Treatment Time Minutes (timed and untimed codes): 40 Total Session Time (minutes): 40 Session Start Time : 1003 Session Stop Time : 1043 Anselmo Marr PT documented in this encounterMain [facility] Center04-22-2024 History of Present illness Narrative* Keisha Guzman, ANISA - 03/10/2024 11:34 AM EDT Program_ID:[id number] Access Code: [email or web address] URL: [email or web address] Date: 03-10-2024 Prepared By: Anselmo Marr Program Notes Exercises - Hooklying Single Knee to Chest Stretch - 3 x daily - 7 x weekly - sets - 3 reps - Supine Double Knee to Chest - 3 x daily - 7 x weekly - sets - 3 reps - Supine Lower Trunk Rotation - 3 x daily - 7 x weekly - 2 sets - 10 reps - Supine Transversus Abdominis Bracing - Hands on Ground - 2 x daily - 7 x weekly - 2 sets - 10 reps - Curl Up with Arms Crossed - 3 x daily - 7 x weekly - 2 sets - 10 reps - Supine Piriformis Stretch with Towel - 1 x daily - 7 x weekly - 1 sets - 3 reps - Standing Anti-Rotation Press with Anchored Resistance - 1 x daily - 7 x weekly - 2 sets - 10 reps * Ricardo Littlejohn, PT - 03/10/2024 10:55 AM EDT Episode Visit Count: 7 Therapist That Will Accept/Oversee The Plan Of Care: Anselmo Marr PT Start of Care Date: 01/15/24 Onset Date: 10/15/23 Plan of Care Certification Date: 02/14/24 Next Certification Due Date: 03/13/24 Patient Identified by Name and Date of : Yes REHABILITATION AND SPORTS THERAPY PHYSICAL THERAPY TREATMENT NOTE ASSESSMENT: Gely Newman tolerated the session with fatigue, decreased symptoms, and expected muscle soreness. She demonstrated improvements in gait with not leaning on cane. The patient will continue to benefit from ongoing skilled physical therapy to progress toward set goals. PLAN FOR NEXT VISIT: PN. Consider assesing hip strength and hip mechanics. SUBJECTIVE: Pt feels that her cane is too low and amking her lean to the side. Pt reports that in 2012, she had a diagnosis of a tilted pelvis. Pt reports that she felt great yesterday, did some shopping and other tasks, slept great and woke up this morning and had to take a Tylenol first thing. Pain: Pain Pain Level: 4 Pain Location: Buttocks - Left Post Treatment Pain Post Treatment Pain Level: Better Post Treatment Pain Location: Buttocks - Left OBJECTIVE MEASURES WITH LEVEL OF FUNCTION: Posture / Alignment Posture: (Pt stood with back to the wall and when she put all of her weight on LLE, RLE was elevated off the ground and pressure was abolished on L side of low back.) TREATMENT: Therapeutic Exercise: 1: Supine glute stretch 2x30 seconds 2: seated PPT sustained with B alt marching 3x10 3: *seated green t-band Paloff press 2x10 both lateral directions with palms facing up to not irritate shoulder. 4: seated green t-band perturbations R, L and forward 3x15 Skilled Intervention: Patient was educated in proper exercise technique and purpose for exercises. Reviewed and educated patient on additions/changes for home exercise program as above (*). Skilled judgment was used in selection of appropriate interventions. Provided written instruction for home exercise program to facilitate proper performance and compliance. Correct performance of therapeutic exercises was facilitated with verbal and visual cuing. Gait Trainin: Pt's cane adjusted and gait training performed with emphasis on increased up right posture. Skilled Intervention: Patient was provided stand by assist during pre-gait/gait training to preventfalls and insure safety. Facilitated proper gait cycle with the use of verbal and visual cues for correction of gait deviations identified in the objective section above. Self-Snf Management: 1: Pt's questions answered in regards to seeking out pain management. 2: Discussed pt leaning on cane and rationale for pain being abolished when all weight put on LLE. Skilled Intervention: Skilled judgment in the selection of proper modification for activity of daily living/home management based on clinical presentation, deficits, and needs. Activity progression based on professional judgement. Billing Neuromuscular Re-Education Treatment Minutes: 32 Self-Care/Home Management Treatment Minutes: 15 Gait Training Treatment Minutes: 8 Skilled Treatment Time Minutes (timed and untimed codes): 55 Total Session Time (minutes): 55 Session Start Time : 1049 Session Stop Time : 1144 ANISA Rodriguez PT documented in this encounterMain [facility] Center04-18-2024 History of Present illness Narrative* Anselmo Marr PT - 03/06/2024 11:00 AM EDT Episode Visit Count: 6 Therapist That Will Accept/Oversee The Plan Of Care: Anselmo Marr PT Start of Care Date: 01/15/24 Onset Date: 10/15/23 Plan of Care Certification Date: 02/14/24 Next Certification Due Date: 03/13/24 Patient Identified by Name and Date of : Yes REHABILITATION AND SPORTS THERAPY PHYSICAL THERAPY TREATMENT NOTE ASSESSMENT: Gely L Trent tolerated the session with decreased symptoms. She demonstrated improvements in pain and gait. The patient will continue to benefit from ongoing skilled physical therapy to progress toward set goals. Classification Low Back Pain Classification: Movement Control PLAN FOR NEXT VISIT: Continue with core strengthening with flexion directional preference. Modify and progress therex prn to tolerance. SUBJECTIVE: Pt reports that overall she is doing well. She reports that she has been having more good days without pain when I get out of bed. She reports consistent compliance with HEP without pain or problems. She does report having a fall on February 17 when her collapsable cane collapsed. She reports that she fell face first into a television cabinet. She reports getting her faced bruised butshe has completed recovered from this and was uninjured except for the bruising. She asked to have second cane adjusted because she no longer plans to use the collapsable cane. Pain: Pain Pain Level: 4 Pain Location: Buttocks - Left Description: Sharp, Shooting Frequency: Intermittent Post Treatment Pain Post Treatment Pain Level: Better Post Treatment Pain Location: Buttocks - Left Post Treatment Symptoms: After session, pt reported that her pain was abolished and she felt like she received a good workout. Pain Mechanism Classification: Neuropathic OBJECTIVE MEASURES WITH LEVEL OF FUNCTION: TREATMENT: Therapeutic Exercise: 1: [employer] StepOne seat #11 x6 minutes (Pt provided an update on her condition and 1:1 throughout) 2: seated PPT sustained with B alt marching 2x10 3: seated green t-band perturbations R, L and forward 3x15 4: seated green t-band scapular retraction 3x10 5: seated green t-band Paloff press 2x10 both lateral directions. 6: HEP reviewed and continuation encouraged to tolerance. Skilled Intervention: Patient was educated in proper exercise technique and purpose for exercises. Skilled judgment was used in selection of appropriate interventions. Correct performance of therapeutic exercises was facilitated with verbal, visual, and tactile cuing. Patient education as noted. Gait Trainin: Pt's cane adjusted and rationale for adjustment provided. Gait training down with new cane at new height and safety recommendations made. Skilled Intervention: Facilitated proper gait cycle with the use of verbal and visual cues for correction of gait deviations identified in the objective section above. Skilled judgment used to assess proper sizing and proper use of assistive device. Billing Therapeutic Exercise Treatment Minutes: 24 Gait Training Treatment Minutes: 20 Skilled Treatment Time Minutes (timed and untimed codes): 44 Total Session Time (minutes): 44 Session Start Time : 1000 Session Stop Time : 1044 Anselmo Marr PT documented in this encounterMain Campus Medical Center03-21-2024 Miscellaneous Notes* Telephone Encounter - Lebron Jacome RN - 02/07/2024 2:13 PM EDT Faxed general surgery referral and US thyroid/parathyroid to Dr. Kwaku Moscoso, per patient request (reports Dr. Moscoso never received them). . Confirmation received. * Telephone Encounter - Selma Galeano - 01/14/2024 2:38 PM EST Faxed Selma Galeano documented in this encounterMain Campus Medical Center03-19-2024 History of Present illness Narrative* Keisha Guzman PTA - 02/05/2024 9:22 AM EDT Program_ID:[id number] Access Code: [email or web address] URL: [email or web address] Date: 02-05-2024 Prepared By: Anselmo Marr Program Notes Exercises - Hooklying Single Knee to Chest Stretch - 3 x daily - 7 x weekly - sets - 3 reps - Supine Double Knee to Chest - 3 x daily - 7 x weekly - sets - 3 reps - Supine Lower Trunk Rotation - 3 x daily - 7 x weekly - 2 sets - 10 reps - Supine Transversus Abdominis Bracing - Hands on Ground - 2 x daily - 7 x weekly - 2 sets - 10 reps - Curl Up with Arms Crossed - 3 x daily - 7 x weekly - 2 sets - 10 reps - Supine Piriformis Stretch with Towel - 1 x daily - 7 x weekly - 1 sets - 3 reps * Ewamarilyn Anselmo, PT - 02/05/2024 8:44 AM EDT Episode Visit Count: 4 Therapist That Will Accept/Oversee The Plan Of Care: Anselmo Marr PT Start of Care Date: 01/15/24 Onset Date: 10/15/23 Plan of Care Certification Date: 01/15/24 Next Certification Due Date: 02/26/24 Patient Identified by Name and Date of : Yes REHABILITATION AND SPORTS THERAPY PHYSICAL THERAPY TREATMENT NOTE ASSESSMENT: Gely Newman tolerated the session with fatigue and expected muscle soreness. She demonstrated improvements in gait and L radicular symptoms with use of cane . The patient will continue to benefit from ongoing skilled physical therapy to progress toward set goals. PLAN FOR NEXT VISIT: Continue with core strengthening with flexion directional preference. Asses response to piriformis stretching. SUBJECTIVE: Pt reports that her L buttock and hip are hurting today, better since she wore different shoes. Pt went to bed without taking a Tylenol, woke up hurting. Pt states she slept on her L sidewith a pillow between her knees. Pain: Pain Pain Level: 5 Pain Location: Low Back/Lumbar Spine - Left, Buttocks - Left, Hip - Left, Thigh - Left, Knee - Left, Calf - Left Description: (like someone is twisting something in her L buttock.) Frequency: Intermittent, With movement, Standing, Walking Post Treatment Pain Post Treatment Pain Level: No Change Post Treatment Pain Location: Low Back/Lumbar Spine - Left, Buttocks - Left, Hip - Left, Thigh - Left, Knee - Left, Calf - Left Post Treatment Symptoms: P stated that her back pain was no worse, but had to sit down upon leavingtreatment room as entering gym. OBJECTIVE MEASURES WITH LEVEL OF FUNCTION: Decreased lateral trunk lean with use of cane. TREATMENT: Therapeutic Exercise: 1: [employer] StepOne seat #12 x6 minutes (1:1 throughout.) 2: *Supine piriformis stretch 3x30 seconds, then 2x30 seconds after manual therapy with sheet (pt repeatedly kept sitting up to asses her pain in L buttock.) 3: supine isometric abdominal exercise via shoulder ext with 2 second holds 2x10 Skilled Intervention: Patient was educated in proper exercise technique and purpose for exercises. Reviewed and educated patient on additions/changes for home exercise program as above (*). Skilled judgment was used in selection of appropriate interventions. Provided written instruction for home exercise program to facilitate proper performance and compliance. Correct performance of therapeutic exercises was facilitated with verbal and visual cuing. Manual Therapy: 1: Trigger point release to L piriformis x 5 minutes intermittently with pt in prone lying with feet off edge of table, push to tolerance. (felt good while having it done, irritated when sitting up and then lying on back) Skilled Intervention: Manual skills to improve joint mobility, ROM, and decrease pain. Utilized anatomy knowledge of the therapist, and assessment of patient's response to intervention. Gait Trainin: Gait training with SPC in RUE with step through pattern. Emphasis on putting more weight throughthe cane to decrease pressure through LLE. Skilled Intervention: Patient was provided stand by assist during pre-gait/gait training to preventfalls and insure safety. Billing Therapeutic Exercise Treatment Minutes: 30 Manual TherapyTreatment Minutes: 5 Gait Training Treatment Minutes: 12 Total Session Time (minutes): 47 Session Start Time : 842 Session Stop Time : 929 ANISA Rodriguez PT documented in this encounterMain [facility] Center03-13-2024 History of Present illness Narrative* Anselmo Marr PT - 01/30/2024 10:59 AM EDT Episode Visit Count: 3 Therapist That Will Accept/Oversee The Plan Of Care: Anselmo Marr PT Start of Care Date: 01/15/24 Onset Date: 10/15/23 Plan of Care Certification Date: 01/15/24 Next Certification Due Date: 02/26/24 Patient Identified by Name and Date of : Yes REHABILITATION AND SPORTS THERAPY PHYSICAL THERAPY TREATMENT NOTE ASSESSMENT: Gely Newman tolerated the session with fatigue, expected muscle soreness, and no issues. She demonstrated difficulty with pt reported pain from traction last visit and continued pain in low back and LE. She reports that during traction her pain was decreased. The patient will continue to benefit from ongoing skilled physical therapy to progress toward set goals. Classification Low Back Pain Classification: Symptom Modulation PLAN FOR NEXT VISIT: Review, correct and progress HEP to tolerance. Continue with postural stretching and strengthening with flexion directional preference as well as neutral spine strengthening. Discontinue traction secondary to increased pain with initial attempt 01/23/24. Consider initiation of PNE box. Gait training with cane to increase safety. SUBJECTIVE: Pt reports that overall her symptoms continue to fluctuate without explanation. She rates her condition as unchanged. She reports compliance with HEP 3x day. She reports that she feels better doing them on the floor than on the bed. She reports that some nights she sleeps well and some nights she sleeps poorly because of pain. Pt reports that during the traction last session she felt better but after she stood up to leave her pain was increased and made it difficult for her to walk to her car. This increased pain lasted for several days. She reports that after the first week of therapy, she felt better with decreased pain but the second week has resulted in her symptoms returning to pre-evaluation status. Pain: Pain Pain Level: 8 Pain Location: Low Back/Lumbar Spine - Left, Buttocks - Left, Hip - Left, Thigh - Left, Knee - Left, Calf - Left Description: Dull, Throbbing Frequency: Intermittent, With movement, Standing, Walking Post Treatment Pain Post Treatment Pain Level: No Change Post Treatment Pain Location: Low Back/Lumbar Spine - Left, Buttocks - Left, Hip - Left, Thigh - Left, Knee - Left, Calf - Left Post Treatment Symptoms: After session and as she was leaving, she stated that her symptoms were unchanged. Pain Mechanism Classification: Neuropathic OBJECTIVE MEASURES WITH LEVEL OF FUNCTION: Gait Gait Observation: antalgic and unsteady with patient reaching for support with UEs. She was advisedto start bringing her cane to therapy. TREATMENT: Therapeutic Exercise: 1: [employer] StepOne seat #12 x6 minutes (1:1 throughout. Pt provided an update on her condition and plan of care, including HEP reviewed.) 2: supine B SKTC 3x30 seconds 3: supine DKTC 3x30 seconds 4: supine LTR attempted but painful so she was advised to remove this from HEP. 5: supine isometric abdominal exercise via shoulder ext with 2 second holds 2x10 6: crunches in small range 2x10 7: Proper intensity with all therex and HEP reviewed and continuation encouraged to tolerance usingpain as a guide at all times. She was reminded to do HEP in her bed, not on the floor and to stop if pain increases. 8: supine PPT 2x10 with use of stabilizer pressure biofeedback 9: supine sustained PPT with B alt toe taps 2x10 with stabilizer pressure biofeedback 10: supine sustained PPT with B alt bent knee fallouts 2x5 with stabilizer pressure biofeedback Skilled Intervention: Patient was educated in proper exercise technique and purpose for exercises. Skilled judgment was used in selection of appropriate interventions. Correct performance of therapeutic exercises was facilitated with verbal, visual, and tactile cuing. Patient education as noted. Billing Therapeutic Exercise Treatment Minutes: 45 Skilled Treatment Time Minutes (timed and untimed codes): 45 Total Session Time (minutes): 45 Session Start Time : 1005 Session Stop Time : 1050 Anselmo Marr PT documented in this encounterMain [facility] Center03-11-2024 Miscellaneous Notes* Telephone Encounter - Laura Isaac LPN - 01/28/2024 12:39 PM EDT Patient has been identified by name and date of : Yes, Patient phones for refill(s): Requested Prescriptions Pending Prescriptions Disp Refills gabapentin (NEURONTIN) 600 mg tablet 90 tablet 3 Sig: Take 1 tablet by mouth three times a day for 120 days. Date of last office visit in primary care: 12/05/2023 Date of next office visit in primary care: 06/04/2024 Please advise. Thank you. Laura Isaac LPN. documented in this encounterMain Campus [facility] Center03-06-2024 History of Present illness Narrative* Anselmo Marr PT - 01/23/2024 1:06 PM EST Episode Visit Count: 2 Therapist That Will Accept/Oversee The Plan Of Care: Anselmo Marr PT Start of Care Date: 01/15/24 Onset Date: 10/15/23 Plan of Care Certification Date: 01/15/24 Next Certification Due Date: 02/26/24 Patient Identified by Name and Date of : Yes REHABILITATION AND SPORTS THERAPY PHYSICAL THERAPY TREATMENT NOTE ASSESSMENT: Gely Newman tolerated the session with decreased symptoms and no issues. She demonstrated improvements in frequency of pain. The patient will continue to benefit from ongoing skilled physical therapy to progress toward set goals. Classification Low Back Pain Classification: Symptom Modulation PLAN FOR NEXT VISIT: Review, correct and progress HEP to tolerance. Continue with postural stretching and strengthening with flexion directional preference as well as neutral spine strengthening. Consider manual lumbar belt traction prn. SUBJECTIVE: Pt reports that overall she feels better than last visit. She reports that symptoms arefluctuating now and for this reason she is feeling better. She reports compliance with HEP 3x day and she denies any increase in pain or problems. She reports pain across low back to start today thatshe attributes to walking into the department. Pain: Pain Pain Level: 8 Pain Location: Low Back/Lumbar Spine - Right, Low Back/Lumbar Spine - Left Description: Sharp (she attributes pain to walking into the department) Frequency: Intermittent, With movement, Standing, Walking Post Treatment Pain Post Treatment Pain Level: Better (Worse when she was leaving.) Post Treatment Pain Location: Low Back/Lumbar Spine - Right, Low Back/Lumbar Spine - Left Post Treatment Symptoms: During therex, pt reported that low back felt better. During traction she also reported that her low back felt better. After standing up to walk out, pt reported that her symptoms were worse than when she came in with increased low back pain. Pain Mechanism Classification: Neuropathic OBJECTIVE MEASURES WITH LEVEL OF FUNCTION: TREATMENT: Therapeutic Exercise: 1: [employer]se[employer] StepOne seat #12 x6 minutes (1:1 throughout. Pt provided an update on her condition and plan of care, including HEP reviewed.) 2: supine B SKTC 3x30 seconds 3: supine DKTC 3x30 seconds 4: *supine LTR 2x10 5: *supine isometric abdominal exercise via shoulder ext with 2 second holds 2x10 6: *crunches in small range 2x10 7: Proper intensity with all therex and HEP reviewed and continuation encouraged to tolerance usingpain as a guide at all times. She was reminded to do HEP in her bed, not on the floor and to stop if pain increases. Skilled Intervention: Patient was educated in proper exercise technique and purpose for exercises. Reviewed and educated patient on additions/changes for home exercise program as above (*). Skilled judgment was used in selection of appropriate interventions. Provided written instruction for home exercise program to facilitate proper performance and compliance. Correct performance of therapeutic exercises was facilitated with verbal and visual cuing. Patient education as noted. Manual Therapy: Manual Traction: After therex, supine manual lumbar belt traction x10 minutes with pt supine and LEs elevated on leg rest. Skilled Intervention: Manual skills to improve joint mobility, ROM, and decrease pain. Utilized anatomy knowledge of the therapist, and assessment of patient's response to intervention. Billing Therapeutic Exercise Treatment Minutes: 34 Manual TherapyTreatment Minutes: 10 Skilled Treatment Time Minutes (timed and untimed codes): 44 Total Session Time (minutes): 44 Session Start Time : 1002 Session Stop Time : 1046 Anselmo Marr PT * Anselmo Marr PT - 01/23/2024 10:31 AM EST Program_ID:[id number] Access Code: [email or web address] URL: [email or web address] Date: 01-23-2024 Prepared By: Anselmo Marr Program Notes Exercises - Hooklying Single Knee to Chest Stretch - 3 x daily - 7 x weekly - sets - 3 reps - Supine Double Knee to Chest - 3 x daily - 7 x weekly - sets - 3 reps - Supine Lower Trunk Rotation - 3 x daily - 7 x weekly - 2 sets - 10 reps - Supine Transversus Abdominis Bracing - Hands on Ground - 2 x daily - 7 x weekly - 2 sets - 10 reps - Curl Up with Arms Crossed - 3 x daily - 7 x weekly - 2 sets - 10 reps documented in this encounterMain Campus Medical Center02-27-2024 History of Present illness Narrative* Anselmo Marr PT - 01/15/2024 4:31 PM EST Episode Visit Count: 1 Therapist That Will Accept/Oversee The Plan Of Care: Anselmo Marr PT Start of Care Date: 01/15/24 Onset Date: 10/15/23 Plan of Care Certification Date: 01/15/24 Next Certification Due Date: 02/26/24 Patient Identified by Name and Date of : Yes REHABILITATION AND SPORTS THERAPY PHYSICAL THERAPY EVALUATION PLAN OF CARE: Assessment: Gely Newman presents with chief complaint of B low back pain with radicular LE symptoms that interferes with sleeping, bending, lifting, standing . She presents with impairments in overall function, range of motion, strength, symptom management, and tissue tenderness. PROMIS (Patient-Reported Outcomes Measurement Information System) scores were reviewed and identified as a rehabilitation concern. Prognosis for therapy is Good due to: current objective clinical presentation, goodoverall health status, positive past response to therapy, within-session changes. She will benefit from skilled therapy services to meet the goals established for this plan of care as noted below. Classification Low Back Pain Classification: Symptom Modulation Goals for Episode of Care: created on 01/15/24 through 02/26/24 Independent in home exercises. Patient will decrease pain rating by 2 points to meet minimal clinical important difference for numeric pain rating scale. Restore pain-free lumbar ROM to WFL to allow for improved bending and lifting tolerance. Stand / Walk without limitations, without pain/symptoms. Sleep through night without pain/symptoms. Maintain proper sitting posture throughout session Patient will increase strength of core/postural muscles to WFL to allow for improve ability to complete ADLs. Patient Goals: eliminate pain in low back and B LEs Planned Interventions, Frequency, and Duration: Current Frequency: 1x/week Duration: 6 weeks Total Number of Visits Planned: 6 Planned Treatment Interventions: Therapeutic exercise (95929), Neuromuscular re- education (23322), Manual therapy (83980), Therapeutic activities (33189), Self- fpc management (60444), Gait Training (29479), Patient/Family/Caregiver Education, Body Mechanics Training, Functional training PLAN FOR NEXT VISIT: Review, correct and progress HEP to tolerance. Continue with postural stretching and strengthening with flexion directional preference as well as neutral spine strengthening. Consider manual lumbar belt traction prn. Patient demonstrates good understanding of plan of care and treatment. The above goals and plan of care were discussed and agreed upon by patient/family. SUBJECTIVE: Pt reports intermittent pain across both sides of low back that also travels down posterior aspectsof B LEs to the level of her knees at times. She reports that she sits entirely too much and has poor posture regularly as well. Patient Goals: eliminate pain in low back and B LEs Functional Limitations: sleeping, bending, lifting, standing Prior Level of Function: Independent without limitations Relevant History Employment: Retired Home Environment Patient Lives With: Self/Alone Assistance Available: None Home Type: Ranch Entry To Home: Stairs Number Of Stairs Into Home: 2 Laundry: basement with full flight Intake Information: Prescription present Previous Treatment: None Red Flags Vertebral Fracture Red Flags: Age >70, Female Vertebral Fracture Clinical Reasoning: Proceed with caution due to the above (1- 2) risk factors Abdominal Aortic Aneurysm Clinical Reasoning: No identified risk factors. Cancer Clinical Reasoning: No identified risk factors. Infection Clinical Reasoning: No identified risk factors. Cauda Equina Syndrome Clinical Reasoning: No identified risk factors. Red Flags - Cervical Cancer Clinical Reasoning: No identified risk factors. Infection Clinical Reasoning: No identified risk factors. Spine History Symptoms Location at Onset: Back Symptoms Since Onset: Unchanging Pain is Worse Always: Standing, Walking, Prolonged positions Pain is Better Always: Bending, Sitting (flexion) Previous Episodes: No Sleeping Position: Side lying left, Supine Sleep Affected by Pain: Pain awakens Pain: Pain Pain Level: 6 (6/10 currently) Pain Location: Low Back/Lumbar Spine - Right, Low Back/Lumbar Spine - Left (can occur in posterior B LEs) Description: Stabbing, Dull Frequency: Intermittent, With movement, Standing, Walking Post Treatment Pain Post Treatment Pain Level: Better Post Treatment Symptoms: After session, pt described her condition as little bit better. Pain Mechanism Classification: Neuropathic PROMIS Scales Higher is Better 01/12/2024 Phys Func - Score 39 (moderate dysfunction) Phys Func - Percentile 14% Self-Eff Symptom - Score 45 (Average) Self-Eff Symptom - Percentile 31% T-scores: mean of general population = 50. 5 points is clinically meaningfully difference Percentiles provide an indication of how the patient's score ranks in relation to the general population. Higher percentile rankings indicate better function/quality of life. 50th percentile is the average of the general population and indicates half of respondents had a worse score. OBJECTIVE MEASURES WITH LEVEL OF FUNCTION: Posture / Alignment Posture: Forward head, Increased thoracic kyphosis, Rounded shoulders Spine Observations R Lumbar Spine Palpation Tenderness: Piriformis L Lumbar Spine Palpation Tenderness: Piriformis Sensation - Lumbar Sensation: Grossly Intact Lumbar Spine AROM Lumbar Flexion: Normal, Decreased pain Lumbar Extension: Major limitation, Increased pain Lumbar R Side-Bend: Minimal limitation Lumbar L Side-Bend: Minimal limitation Lumbar R Rotation: Major limitation Lumbar L Rotation: Normal LE Flexibility Flexibility: Piriformis Flexibility R Piriformis Flexibility: 36 L Piriformis Flexibility: 36 LE Strength Trunk Strength: Pt diagnosis, reported functional difficulties and postural deficits indicate that she will benefit from increased core and postural strength. R LE Strength: No asymmetrical weakness in LEs except for EHL B L LE Strength: No asymmetrical weakness in LEs except for EHL B R Great Toes Extension (L5, S1): 2/5 L Great Toes Extension (L5, S1): 3-/5 Special Tests - Hip and Spine Hip and Spine Special Tests: SLR Test SLR Test: Right Negative, Left Positive Gait Gait Observation: Antalgic pattern that she blames on peripheral neuropathy. Education: Education Learning Preferences: Demonstration, Explanation, Performance, Printed Materials Barriers: None Learning/educational needs: Home exercise program, Plan of Care, Health promotion, Posture, Body Mechanics, Gait Training Education Provided: Yes, see treatment interventions for education provided Education Provided To: Patient Education Mode/Type: Demonstration, Explanation/Discussion, Literature/Printed Materials, Performance Response to Education/Teach Back: States/Identifies, Return Demonstration, Requires Review/Additional Education TREATMENT: PT Treatment Interventions: Therapeutic Exercise Evaluation Therapeutic Exercise: 1: Pt was educated on the anatomy of lumbar spine, the likely etiology of symptoms and rationale for recommended plan of care. She was repeatedly advised to stop any exercise or activity that causes increased pain. 2: *supine B SKTC 3x30 seconds 3: *supine DKTC 3x30 seconds Skilled Intervention: Patient was educated in proper exercise technique and purpose for exercises. Reviewed and educated patient on additions/changes for home exercise program as above (*). Skilled judgment was used in selection of appropriate interventions. Provided written instruction for home exercise program to facilitate proper performance and compliance. Correct performance of therapeutic exercises was facilitated with verbal, visual, and tactile cuing. Patient education as noted. Billing * Evaluation Moderate Complexity: 1 Unit Therapeutic Exercise Treatment Minutes: 15 Skilled Treatment Time Minutes (timed and untimed codes): 45 Total Session Time (minutes): 45 Session Start Time : 1005 Session Stop Time : 1050 Anselmo Marr PT * Anselmo Marr PT - 01/15/2024 10:42 AM EST Program_ID:[id number] Access Code: [email or web address] URL: [email or web address] Date: 01-15-2024 Prepared By: Anselmo Marr Program Notes Exercises - Hooklying Single Knee to Chest Stretch - 3 x daily - 7 x weekly - sets - 3 reps - Supine Double Knee to Chest - 3 x daily - 7 x weekly - sets - 3 reps documented in this encounterMain Campus Medical Center02-22-2024 Miscellaneous Notes* Telephone Encounter - Keisha Coronado RN - 01/10/2024 3:22 PM EST Spoke with patient. Given message from provider's office. Patient verbalizes understanding. Transferred to PSS to schedule GEN SURG appointment. Keisha Coronado RN * Telephone Encounter - Aiyana Gaffney LPN - 01/10/2024 10:40 AM EST Phoned patient left message to return call and ask to speak to triage nurse for results. * Telephone Encounter - Rishi Vasquez DO - 01/10/2024 9:52 AM EST Please inform patient that her thyroid US shows that she has 4 nodules - 2 on right side, 2 on leftside. They are similar to previous size but I would like her to follow up with General surgeon to determine if FNA biopsy is needed of any of the nodules esophoria documented in this encounterMain Campus Medical Center02-14-2024 Miscellaneous Notes* Telephone Encounter - Ira Moreno RN - 01/02/2024 6:25 PM EST patient notified of information and would like scheduled for therapy. Patient can do Mon-Sun-Sun 8-12 or -0-12 * Telephone Encounter - Selma Galeano MA - 01/02/2024 6:18 PM EST Left message to contact office Selma Galeano * Telephone Encounter - Rishi Vasquez DO - 01/02/2024 4:32 PM EST Referral for PHYSICAL THERAPY is placed, please inform patient and help her schedule an appt Rishi Vasquez DO * Telephone Encounter - Aileen Romero LPN - 01/01/2024 3:28 PM EST Pt notified of message & states she is willing to try PT hoping she wouldn't have very many visits as she will have to pay $35 each visit. Explained to pt she would have to have an eval for PT todetermine how many visits she would need. Pt is agreeable to plan. Aileen Romero LPN * Telephone Encounter - Nasim López LPN - 01/01/2024 2:34 PM EST Message left to return call. * Telephone Encounter - Jesenia Mcgee PA-C - 01/01/2024 12:58 PM EST I see where patient was evaluated for this at her last visit. She is currently on gabapentin which can help with that nerve pain. Is she still taking this medication? I also see where she was recommended possible consult to PT or pain mgmt. I would not recommend an anti-inflammatory (NSAID) at this time due to her CKD. She also has a history of DM-and prednisone (another anti-inflammatory) can raise blood sugars. Although, something shecould consider if nothing else is helping. Would she like a consult to PT or pain mgmt? Jesenia Mcgee PA-C 01/01/2024 * Telephone Encounter - Betsey Kerr LPN - 12/27/2023 2:04 PM EST Refocus Imaginghart message: I HAVE COME TO THE CONCLUSION THAT THE PAIN I AM HAVING IS COMMING FROM MY SCIATIC NERVE. IT WAKES ME UP AT NIGHT AND IS GOING DOWN THE BACK OF BOTH LEGS. IS THERE ANYTHING THAT IYOU CAN PERSCRIBE FOR THAT? THE GIRL THAT DID MY ULTRASOUND LAST WEEK SAID THAT SHE HAD THE SAME THING AND THEY PERSCRIBED AN ANTI-INFLAMATORY FOR4 HER TO TAKE. WILL AWAIT YOUR REPLY. THANK YOU, GELY NEWMAN documented in this encounterMain Campus Medical Center02-08-2024 Miscellaneous Notes* Telephone Encounter - Betsey Kerr LPN - 12/27/2023 2:04 PM EST Sent to provider in phone encounter. documented in this encounterMain Campus Medical Center02-01-2024 History of Present illness Narrative* Rebecca Puente RDMS - 12/20/2023 9:15 AM EST Radiology Service Progress Note PATIENT NAME: Gely Newman DATE OF SERVICE: December 20, 2023 TIME: 4:21 PM PATIENT IDENTITY VERIFICATION COMPLETED USING TWO (2) IDENTIFIERS: Name and Date of confirmedby patient verbally. FALL SCREENING: Has the patient had 2 falls in the last year or 1 fall with injury or currently using an Ambulatory Assistive Device (Walker, Cane, Wheelchair, Crutches, etc.)? No PATIENT GENDER DATA: Female. status: : No status: NO. PATIENT RELEVANT IMPLANT DATA REVIEWED: Not Applicable PATIENT PRESENTS WITH AN IMPLANTABLE OR ATTACHED MANAGER BAKERY: No RADIOLOGY DEPARTMENT: Ultrasound PERIPHERAL IV DATA: Not applicable SIGNED BY: Rebecca Puente RDMS RVT December 20, 2023 4:21 PM documented in this encounterMain Campus Medical Center01-22-2024 NoteIMPRESSION: DEGENERATIVE CHANGE IN ALIGNMENT ABNORMALITIES DESCRIBED. PROGRESSION PRIOR STUDY. NO ACUTE ABNORMALITY Poultry Eviscerator: SANDRA Transcribe Date/Time: Dec 10 2023 1:03P Dictated by : CHASE SUE MD This examination was interpreted and the report reviewed and electronically signed by: CHASE SUE MD on Dec 10 2023 1:17PM EST DIVISION OF [id number] History of Present illness Narrative* Sienna Mendoza RT(R) - 12/10/2023 9:00 AM EST Radiology Service Progress Note PATIENT NAME: Gely Newman DATE OF SERVICE: December 10, 2023 TIME: 8:44 AM PATIENT IDENTITY VERIFICATION COMPLETED USING TWO (2) IDENTIFIERS: Name and Date of confirmedby patient verbally. FALL SCREENING: Has the patient had 2 falls in the last year or 1 fall with injury or currently using an Ambulatory Assistive Device (Walker, Cane, Wheelchair, Crutches, etc.)? No PATIENT GENDER DATA: Female. status: : No status: NO. PATIENT RELEVANT IMPLANT DATA REVIEWED: Yes RADIOLOGY DEPARTMENT: General X-ray: Exam(s) Completed: Spine X-Ray(s): Lumbar AP / LAT / L5-S1 PERIPHERAL IV DATA: Not applicable SIGNED BY: RT Denny(R) December 10, 2023 8:44 AM documented in this encounterMain Campus Medical Center11-15-2023 Miscellaneous Notes* Telephone Encounter - Aiyaan Gaffney LPN - 10/03/2023 3:43 PM EST Patient has been identified by name and date of : Patient phones for refill(s): Requested Prescriptions Pending Prescriptions Disp Refills gabapentin (NEURONTIN) 600 mg tablet 90 tablet 3 Sig: Take 1 tablet by mouth three times a day for 30 days. Date of last office visit in primary care: 06/04/2023 Date of next office visit in primary care: 12/05/2023 Last 2 Encounter Wt Readings: Date: Wt: 06/04/2023 72.6 kg (160 lb) 12/05/2022 72.6 kg (160 lb) Previous labs/tests for medication: Not applicable Please advise. Thank you. Aiyana Gaffney LPN. Patient said she will run out of medication before the end of the week. documented in this encounterMain Campus Medical Center10-10-2023 Miscellaneous Notes* Telephone Encounter - Dillon Watts APRN.CNP - 08/28/2023 7:55 AM EDT Noted, thank you. Dillon Watts APRN.SHOEMAKING FINISHER * Telephone Encounter - Lebron Jacome RN - 08/23/2023 11:57 AM EDT Pt returned call and given provider's message below with verbalized understanding. Patient reports [facility] culture, from her [facility]. States she does not know why he puts Dr. Vasquez's name on it, or if he even did. Reports sheis taking doxcycline for the wound. Reports she was taking cipro also, but Dr. Membreno had her stopthat one on Sunday. Phoned Dr. Membreno's office to inform Dr. Vasquez received wound culture results with pcp as the ordering provider. Dr. Membreno's office reports pcp's name is not on their order, so they do not knowhow this happened, and they did not receive results. Faxed results to Dr. Membreno at fax # [phone]. Confirmation received. * Telephone Encounter - Aiyana Gaffney LPN - 08/23/2023 10:39 AM EDT Phoned patient and left message to return call and ask to speak to a triage nurse. * Telephone Encounter - Rishi Vasquez DO - 08/22/2023 9:29 PM EDT I didn't order this testing although somehow my name is attached. Please call and clarify with patient that specialist is taking care of her wound etc. Rishi Vasquez DO * Telephone Encounter - Meagan Martinez Ma - 08/18/2023 11:23 AM EDT Office received wound Cx results ordered by you. Seen this happened previously but pt was followingwith someone else. Unsure if you are following on this or not but wanted to make you aware. Meagan Martinez Ma Scan on 08/18/2023 9:38 AM by Provider, SARIAH Morrison: Miscellaneous Lab documented in this encounterMain Campus Medical Center09-13-2023 Miscellaneous Notes* Telephone Encounter - Nasim López LPN - 08/01/2023 11:15 AM EDT Pt. informed seeing Doctor who ordered it tomorrow. * Telephone Encounter - Rishi Vasquez DO - 08/01/2023 9:55 AM EDT Please call and clarify below with patient ' I didn't order a wound culture. It is showing MRSA staph aureus infection. Was this addressed already by specialist? If not, needs to have this addressed by the provider doing the testing Rishi Vasquez DO * Telephone Encounter - Michaela Millan Ma - 07/31/2023 11:30 AM EDT Pt had blood work done at [facility]. View External Labs - Microbiology [ID [id number]] View External Labs - Miscellaneous Lab [ID [id number]] documented in this encounterMain Campus Medical Center08-22-2023 Miscellaneous Notes* Telephone Encounter - Kristie Delarosa LPN - 07/10/2023 11:54 AM EDT Pt notified of same, verbalizes understanding. Kristie Delarosa LPN * Telephone Encounter - Danyelle Tripp PA-C - 07/10/2023 11:02 AM EDT Let patient know that repeat Mamm/US is normal. Return to yearly screenings. documented in this encounterMain Campus Medical Center08-22-2023 History of Present illness Narrative* Rebecca Puente RDMS - 07/10/2023 10:30 AM EDT Radiology Service Progress Note PATIENT NAME: Gely Newman DATE OF SERVICE: July 10, 2023 TIME: 2:57 PM PATIENT IDENTITY VERIFICATION COMPLETED USING TWO (2) IDENTIFIERS: Name and Date of confirmedby patient verbally. FALL SCREENING: Has the patient had 2 falls in the last year or 1 fall with injury or currently using an Ambulatory Assistive Device (Walker, Cane, Wheelchair, Crutches, etc.)? No PATIENT GENDER DATA: Female. status: : No status: NO. PATIENT RELEVANT IMPLANT DATA REVIEWED: Not Applicable RADIOLOGY DEPARTMENT: Ultrasound PERIPHERAL IV DATA: Not applicable SIGNED BY: Rebecca Puente RDMS RVT July 10, 2023 2:57 PM documented in this encounterMain Campus Medical Center08-22-2023 History of Present illness Narrative* Elizabeth Sandoval RT(R) - 07/10/2023 10:00 AM EDT Radiology Service Progress Note PATIENT NAME: Gely Newman DATE OF SERVICE: July 10, 2023 TIME: 9:56 AM PATIENT IDENTITY VERIFICATION COMPLETED USING TWO (2) IDENTIFIERS: Name and Date of confirmedby patient verbally. FALL SCREENING: Has the patient had 2 falls in the last year or 1 fall with injury or currently using an Ambulatory Assistive Device (Walker, Cane, Wheelchair, Crutches, etc.)? No PATIENT GENDER DATA: Female. status: : No status: NO. PATIENT RELEVANT IMPLANT DATA REVIEWED: Not Applicable RADIOLOGY DEPARTMENT: Mammography PERIPHERAL IV DATA: Not applicable SIGNED BY: RT Mono(R) July 10, 2023 9:56 AM documented in this encounterMain [facility] Center07-17-[facility]23 History of Present illness Narrative* Rishi Vasquez, - 06/04/2023 11:42 AM EDT Patient presents with: 6 Month Exam HPI: Gely Newman is a 73 year old female who presents to the office today for review of health conditions. Concerns today: Carotid artery US on 06/22/[address] Moscoso, surgeon, on 07/10/23 for follow up CAD, has recently seen Dr. 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 Continues to walk regularly at the grocery store 2 days a week and around her neighborhood area other days of the week. Wearing her compression stockings. Taking medication as prescribed. Will be seeing Dr. Moscoso upcoming Thyroid nodules, stable since 2017. Had NM uptake scan which showed it was a multinodular goiter changes, no concerning dominant nodules Urinary urgency and frequency symptoms the last few days, no hematuria or flank pain or fevers or chills. Concerned that she may have a UTI Ms. Newman has past history of diabetes. Since our last visit she denies excessive thirst or increased frequency of urination, chest pain or dyspnea , new or unusual visual symptoms, and low sugar/hypoglycemic reactions. Depression- no. Follows a diabetic diet some of the time. She is compliant with medication(s) and is tolerating med(s) without any side effects. She reports checking her glucose on a once a day schedule with sugars in the <150 range. Patient's last HgA1C was Hemoglobin A1C (%) Date Value 05/30/2023 6.6 12/14/2022 7.1 11/28/2021 7.0 05/24/2021 6.7 Hemoglobin A1C (POCT) (%) Date Value 05/31/2022 6.2 ) Last Ophthalmology exam was within the past 12 months Ms. Newman reports history of hyperlipidemia. Current therapy includes simvastatin (Zocor) 40 mg. Denies side effects of muscle weakness or achiness. Her most recent lipid panels are reviewed. Cholesterol, Total (mg/dL) Date Value 05/30/2023 151 11/28/2021 190 HDL Cholesterol (mg/dL) Date Value 05/30/2023 52 11/28/2021 55 LDL Cholesterol (mg/dL) Date Value 05/30/2023 68 11/28/2021 95 Triglyceride (mg/dL) Date Value 05/30/2023 153 11/28/2021 199 Ms. Newman indicates a history of hypertension and states that she is feeling well and denies any symptoms referable to elevated blood pressure. Specifically denies headache, chest pain, palpitations, dyspnea, and peripheral edema. Patient denies any side effects of her medication(s) and is compliant with their regimen. Last 3 Encounter BP Readings: Date: BP: 06/04/2023 120/70 12/05/2022 126/82 09/23/2022 160/72 She watches her diet for sodium, low fat and low cholesterol some of the time. She does not check BP's generally. Gely likes to exercise by walking. 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 Ch Frog Shaker, 90% blockage- unable to do stenting Diabetes mellitus type 2 in obese (HCC) Diabetic feet (HCC) Gangrene (HCC) 2012 RIGHT FOOT Hypertension Mild non proliferative diabetic retinopathy (HCC) 06/11/2013 Both eyes, Dr. Ortiz [facility]-03/25/2020 left mild, right moderate Multiple thyroid nodules last US 01/2015 Peripheral artery disease (HCC) due to Diabetes mellitus, Dr. Kwaku Moscoso Rotator cuff syndrome of left shoulder Dr. Regi Thompson [facility] PAST SURGICAL HISTORY Procedure Laterality Date AMPUTATION TOE INTERPHALANGEAL JOINT 01-01-2013 left 5th toe due to diabetes gangrene ARTHROSCOPY KNEE DIAGNOSTIC W/WO SYNOVIAL BX SPX 12/31/13 Arthroscopy, knee lt COLONOSCOPY FLX DX W/COLLJ SPEC WHEN PFRMD 11-21-13 tubular adenomas, repeat in 3 years COLONOSCOPY FLX DX W/COLLJ SPEC WHEN PFRMD 10/25/2016 ESOPHAGOGASTRODUODENOSCOPY TRANSORAL DIAGNOSTIC 10/25/2016 EXC TUMOR SOFT TISS FOREARM AND/WRIST SUBQ 3+CM 09/08/14 Exc. right olecrenon dermal/SC mass FNA WITH IMAGING 03/17/15 U/S FNA bilateral thyroid PAST SURGICAL HISTORY OF Left foot - diabetic PAST SURGICAL HISTORY OF Left 06/2015 TKA PAST SURGICAL HISTORY OF Left 10/2016 excision of bone REVSC OPN/PRG FEM/POP W/ANGIOPLASTY UNI 12-31-12 RIGHT FOOT REVSC OPN/PRQ FEM/POP W/ATHRC/ANGIOP VSL 02-10-13 right leg REVSC OPN/PRQ FEM/POP W/ATHRC/ANGIOP VSL 04-08-13 ROTATOR CUFF REPAIR 03/11/14 Dr. Regi Thompson [facility] SLCTV CATHJ EA 1ST ORD ABDL PEL/LXTR ART BRNCH 06-07-16 APLL Social History Tobacco Use Smoking status: Former Packs/day: 0.50 Years: 45.00 Total pack years: 22.50 Types: Cigarettes Quit date: 12/20/2012 Years since quittin.4 Smokeless tobacco: Never Substance Use Topics Alcohol use: No Drug use: No FAMILY HISTORY Problem Relation Age of Onset Diabetes Maternal Grandmother Emphysema Mother Osteoporosis Mother Heart Father Stroke Father Allergies: ALLERGIES Allergen Reactions Sulfa (Sulfonamide * Unknown childhood Current Meds: gabapentin (NEURONTIN) 600 mg tablet Take 1 tablet by mouth three times daily for 30 days. glimepiride (AMARYL) 4 mg tablet Take 1 tablet by mouth daily with breakfast. lisinopril (ZESTRIL, PRINIVIL) 20 mg tablet Take 1 tablet by mouth once daily. hydroCHLOROthiazide (HYDRODIURIL, ESIDRIX) 25 mg tablet Take 1 tablet by mouth once daily. estradiol (ESTRACE) 0.01 % (0.1 mg/gram) vaginal cream Use 1 g vaginally two times a week. metFORMIN (GLUCOPHAGE) 500 mg tablet Take 1 tablet by mouth twice daily with meals. lisinopril (ZESTRIL, PRINIVIL) 40 mg tablet Take 1 tablet by mouth once daily. (Patient taking differently: Take 20 mg by mouth once daily.) blood sugar diagnostic (BLOOD GLUCOSE TEST) test strip Test blood sugar(s) one times daily. Dx: Other DM Code E11.51 Insulin: No blood sugar diagnostic (ONETOUCH ULTRA TEST) test strip Use as instructed lisinopril (ZESTRIL, PRINIVIL) 40 mg tablet Take 1 tablet by mouth once daily. Blood Pressure Test Kit-Medium kit 1 Device once daily. Dx: Essential hypertension ferrous sulfate 325 mg (65 mg iron) tablet Take 325 mg by mouth daily with breakfast. Cholecalciferol, Vitamin D3, 25 mcg (1,000 unit) cap Take 1,000 Units by mouth once daily. amLODIPine (NORVASC) 5 mg tablet Take 1 tablet by mouth once daily. (Patient taking differently: Take 10 mg by mouth once daily.) SACCHAROMYCES BOULARDII (PROBIOTIC, S.BOULARDII, ORAL) Take 1 capsule by mouth once daily. Cranberry Extract 300 mg tab Take by mouth. acetaminophen (TYLENOL) 325 mg tablet Take 650 mg by mouth every 6 hours as needed. ascorbic acid, vitamin C, (VITAMIN C) 500 mg tablet Take 1 tablet by mouth once daily. Nlhvayjj-Pgzx-Tzj-Folic Acid 18-0.4 mg tab Take 1 tablet by mouth once daily. metoprolol succinate ER (TOPROL XL) 50 mg 24 hr tablet Take 1 tablet by mouth once daily. omega-3 fatty acids 1,000 mg cap Take 1 capsule by mouth once daily. Aspirin 81 mg Tab Take 1 tablet by mouth once daily. Take with food. nitrofurantoin monohydrate and macrocrystal (MACROBID) 100 mg capsule Take 1 capsule by mouth twicedaily with meals for 7 days. simvastatin (ZOCOR) 40 mg tablet Take 1 tablet by mouth daily at bedtime. clopidogrel (PLAVIX) 75 mg tablet Take 75 mg by mouth once daily. Review of Systems: The remainder of the review of systems is negative. PE: 06/04/23 1125 BP: 120/70 Pulse: 60 Resp: 16 Temp: 36.3 C (97.3 F) TempSrc: Right Tympanic Weight: 72.6 kg (160 lb) Gen: A&O, NAD, non-toxic appearing, Pleasant, cooperative HEENT: NT/AC, PERRLA, EOMs intact b/l, nares clear and patent b/l, pharynx without erythema, exudate or lesions. Uvula midline. MMM, hard of hearing Neck: supple, No cervical LAD, no thyromegaly, no carotid bruits CV: RRR, normal S1 and S2, no murmurs, no gallops, no rubs, Pulses 2+ and symmetric in UE and 1+ b/l LE b/l Lungs: normal respiratory effort, CTA b/l, no wheezing or rhonchi or rales Abd: soft, NT, ND, +BS, no hepatosplenomegaly MS: FROM all 4 extremities Neuro: CN II-XII intact b/l, strength 5/5 b/l UE and LE, DTRs 2/4 UE and LE, sensation intact. Skin: warm, dry, intact, No rashes or lesions on exposed skin. Foot exam: Monofilament abnormal on right and left feet. No edema Hemosiderin staining b/l anterior tibia ASSESSMENT/PLAN: 1. Dysuria - ICD9: 788.1, ICD10: R30.0 (primary diagnosis) acute - UA positive for dorita esterase, hematuria, proteinuria, and nitrates - Send urine for culture - Patient education for prevention given - UA DIP, URINE (POC) - NITROFURANTOIN MONOHYDRATE & MACROCRYSTAL 100 MG ORAL CAP - URINE CULTURE 2. Acute cystitis with hematuria - ICD9: 595.0, ICD10: N30.01 Start on rx as below, has an acute cystitis, no flank pain, send urine for culture as ordered. - NITROFURANTOIN MONOHYDRATE & MACROCRYSTAL 100 MG ORAL CAP - URINE CULTURE 3. Peripheral vascular occlusive disease (HCC) - ICD9: 443.9, ICD10: I73.9 - f/u with vascular surgeon for follow up testing, symptoms seem to be stable 4. 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) - ICD9: 250.70, 443.81, ICD10: E11.51 - Improving control - Continue current medications - Blood glucose monitoring on a once daily schedule - Counseled on healthy diet and regular exercise - Discussed need for and benefit of weight loss. BMI 25.82 kg/(m^2) 5. CKD stage G3b/A1, GFR 30-44 and albumin creatinine ratio <30 mg/g (HCC) - ICD9: 585.3, ICD10:N18.32 - eGFR: Stable - Counseled on avoiding NSAIDs, adequate hydration - Counseled on low sodium diet - Medications reviewed and renally adjusted 6. Dyslipidemia (high LDL; low HDL) - ICD9: 272.4, ICD10: E78.5 - Controlled - Continue current medications - Counseled on healthy diet and regular exercise - Discussed need for and benefit of weight loss. BMI 25.82 kg/(m^2) 7. Vitamin D deficiency - ICD9: 268.9, ICD10: E55.9 Continue supplement 8. Multinodular thyroid - ICD9: 241.1, ICD10: E04.2 - stable, had recent thyroid US and uptake scan 9. Essential hypertension - ICD9: 401.9, ICD10: I10 - Controlled - Continue current medications - Recommend home blood pressure monitoring, to bring results to next visit - Encouraged sodium restriction, DASH or Mediterranean diet - Recommend regular aerobic exercise 10. Arthritis, multiple joint involvement - ICD9: 716.99, ICD10: M12.9 Stable, continue walking and stretching Rishi Vasquez, DO To ER if develops chest pain, shortness of breath, or severe worsening of symptoms. Discussed risks, benefits, alternatives, and potential side effects of medications. Patient expressed understanding and agreed with the plan. Rishi Vasquez DO [address] [place] [address] documented in this encounterMain [facility]07-11-2023 Miscellaneous Notes* Telephone Encounter - Jessie Collins LPN - 05/29/2023 4:26 PM EDT Spoke with pt and information listed below given. Pt verbalizes understanding. Pt transferred to scheduling Jessie Collins LPN * Telephone Encounter - Nasim López LPN - 05/29/2023 3:16 PM EDT Message left to return call. * Telephone Encounter - Danyelle Tripp PA-C - 05/29/2023 1:55 PM EDT Mammogram shows asymmetry in R breast. Need additional views. Danyelle Tripp PA-C documented in this encounterMain [facility] Center07-11-2023 Miscellaneous Notes* Letter - Coordinator, Mammography - 05/29/2023 12:21 PM EDT May 30, 2023 PID: [id number] Gely Newman [address] [place] [address] Dear Ms. Newman, Your recent breast imaging exam on 05/29/2023 showed a possible finding that requires additional imaging studies for a complete evaluation. Most such findings are probably benign (not cancer). If you have a healthcare provider who ordered/prescribed your screening mammogram: Please call [phone] or [phone]: [phone] to schedule an appointment for your additional imaging (if youhave not already done so). If you DO NOT have a healthcare provider (ie you did not have an order/prescription for your screening mammogram): Please call to schedule an appointment for your additional imaging (if you have not already done so). You must have an order/prescription from your physician when calling to schedule your appointment. If your order/prescription is not electronic, you must bring the hard copy with you on the day of your exam to avoid delays. Your imaging studies and reports are [facility] as part of [facility] permanent medical record, and are available for your continuing care. Thank you for allowing us to help in meeting your health care needs. Sincerely, Dr. Stubbs Interpreting Radiologist [facility] (Additional imaging) documented in this encounterMain Campus Medical Center07-11-2023 History of Present illness Narrative* Hawa Will RT(Chau) - 05/29/2023 10:10 AM EDT Radiology Service Progress Note PATIENT NAME: Gely Newman DATE OF SERVICE: May 29, 2023 TIME: 9:58 AM PATIENT IDENTITY VERIFICATION COMPLETED USING TWO (2) IDENTIFIERS: Name and Date of confirmedby patient verbally. FALL SCREENING: Has the patient had 2 falls in the last year or 1 fall with injury or currently using an Ambulatory Assistive Device (Walker, Cane, Wheelchair, Crutches, etc.)? No PATIENT GENDER DATA: Female. status: : No status: NO. PATIENT RELEVANT IMPLANT DATA REVIEWED: Not Applicable RADIOLOGY DEPARTMENT: Mammography PERIPHERAL IV DATA: Not applicable SIGNED BY: RT Jordan(R) May 29, 2023 9:58 AM documented in this encounterMain [facility] Center07-10-2023 Miscellaneous Notes* Telephone Encounter - Michaela Millan Ma - 05/28/2023 10:17 AM EDT Last office visit: 12/05/22 F/u scheduled: 06/04/23 Michaela Millan Ma documented in this [facility]04-24-2023 Miscellaneous Notes* Telephone Encounter - Jesise Collins LPN - 03/12/2023 1:57 PM EDT Reina with Dr. Garner's office called and identified pt with name and date of . Pt getting DM shoes from them and they received everything except the office note from Dr. Sebastian 12-11-22. Requested this be faxed to them. Faxed to [phone]. Done. Jessie Collins LPN documented in this [facility]03-22-2023 Miscellaneous Notes* Telephone Encounter - Clary Andres APRN.CNP - 02/07/2023 3:05 PM EDT Order signed. Clary Andres APRN.MARK * Telephone Encounter - Selma Galeano - 02/05/2023 1:21 PM EDT Order pended Selma Galeano documented in this encounterMain [facility] Center03-06-2023 Miscellaneous Notes* Telephone Encounter - Jessie Collins LPN - 01/22/2023 3:41 PM EST Spoke with pt and information listed below given. Pt verbalizes understanding. Jessie Collins LPN * Telephone Encounter - Any Rodriguez LPN - 01/22/2023 2:17 PM EST Message left for pt to return call to a nurse. * Telephone Encounter - Dillon Watts APRN.CNP - 01/22/2023 11:46 AM EST The following approved medication requests have been transmitted electronically. Requested Prescriptions Signed Prescriptions Disp Refills glimepiride (AMARYL) 4 mg tablet 30 tablet 11 Sig: Take 1 tablet by mouth daily with breakfast. Authorizing Provider: RISHI VASQUEZ Ordering User: DILLON WATTS APRN.CNP * Telephone Encounter - Lebron Jacome RN - 01/22/2023 9:37 AM EST [employer] / Insurance- reports glimepiride 2 mg will need a PA because in insurance will only cover 30 pills for 30 days, because 4 mg is available. Asking if pcp wants to order the 4 mg daily instead or do you want to do a PA? Reference # [id number] documented in this encounterMain [facility] Center02-20-2023 Miscellaneous Notes* Telephone Encounter - Joanie Rosario LPN - 01/08/2023 11:53 AM EST Rosalie--12/05/22 Nov--06/04/23 Last refill--07/17/22 180 with 0 refills Last labs--12/14/22 documented in this encounterMain [facility] Medical Center02-17-2023 Miscellaneous Notes* Telephone Encounter - Nasim López LPN - 01/05/2023 10:21 AM EST Pt. informed. Will schedule with Dr. Moscoso when able. * Telephone Encounter - Sara Solis RN - 12/26/2022 10:10 AM EST Called and left a voicemail for the Patient to call back and ask for a nurse to receive the providers message. Sara Solis RN * Telephone Encounter - Rishi Vasquez DO - 12/26/2022 7:17 AM EST Please inform patient that her thyroid ultrasound shows Thyroid nodules appear similar to the prior study. Several nodules have size/category for which FNA could be recommended although these nodules are similar in size to the prior study from 2017 I would still recommend follow up with the General surgeon to make sure no fine needle aspiration biopsy is needed Rishi Vasquez DO documented in this encounterMain [facility] Center02-16-2023 Miscellaneous Notes* Telephone Encounter - Joanie Rosario LPN - 01/04/2023 11:56 AM EST Spoke with pt gave information provided. [pt voices understanding. * Telephone Encounter - Rishi Vasquez DO - 01/04/2023 11:28 AM EST Please inform patient that her NM thyroid uptake scan shows no concerning abnormal uptake Rishi Vasquez DO documented in this encounterMain [facility] Center02-09-2023 History of Present illness Narrative* Evelin Alfaro RT(R) - 12/28/2022 9:00 AM EST RADIOLOGY SERVICE PROGRESS NOTE SERVICE DATE: 12/28/2022 SERVICE TIME: 09:05 AM PATIENT IDENTITY VERIFICATION COMPLETED USING TWO (2) STANDARD IDENTIFIERS: Name and Date of confirmed by patient verbally FALL SCREENING: Has the patient had 2 falls in the last year or 1 fall with injury or currently using an Ambulatory Assistive Device (Walker, Cane, Wheelchair, Crutches, etc.)? No PATIENT GENDER DATA: .female : No ALLERGIES: Reviewed and unchanged MEDICATIONS REVIEWED: No PATIENT RELEVANT IMPLANT DATA REVIEWED: Not Applicable CREATININE: Creatinine Date Value Ref Range Status 12/14/2022 1.34 (H) 0.58 - 0.96 mg/dL Final 08/31/2022 1.38 (H) 0.58 - 0.96 mg/dL Final 03/07/2022 1.29 (H) 0.58 - 0.96 mg/dL Final Estimated Glomerular Filtration Rate Date Value Ref Range Status 12/14/2022 43 (L) >=60 mL/min/1.73m Final Comment: Estimated Glomerular Filtration Rate (eGFR) is calculated using the 2020 CKD-EPI creatinine equation. This equation utilizes serum creatinine, sex, and age as parameters. The creatinine assay has traceable calibration to isotope dilution- mass spectrometry. Refer to KDIGO guidelines for clinical interpretation. In patients with unstable renal function, e.g. those with acute kidney injury, the eGFRmay not accurately reflect actual GFR. eGFR- Date Value Ref Range Status 11/28/2021 51 Final P.O.C.T. RESULTS: N/A December 28, [address] PERFORMED: No IV SITE: NM only - not applicable, oral or physician administered agents given to patient POST EXAM PIV STATUS: Not applicable PROCEDURE TYPE: NM INJECT: Thyroid Uptake and Scan. 375 microcuries Nal-123 Capsules. No other medications given.. ADMINISTRATION TIME: 09:22 PATIENT DISCHARGED TO: Ambulatory patient, left SC department area. A Diagnostic radioactive procedure has taken place, with no further precautions necessary other than routine body substance precautions. More information regarding radiation safety can be found usingthis link: [email or web address] SIGNATURE: ISMAEL cMpherson PATIENT NAME: Gely Newman DATE: December 28, 2022 TIME: 09:25 AM PAGER/CONTACT #: documented in this encounterMain [facility] Center02-01-2023 History of Present illness Narrative* Rebecca Puente RDMS - 12/20/2022 10:00 AM EST Radiology Service Progress Note PATIENT NAME: Gely Newman DATE OF SERVICE: December 20, 2022 TIME: 11:23 AM PATIENT IDENTITY VERIFICATION COMPLETED USING TWO (2) IDENTIFIERS: Name and Date of confirmedby patient verbally. FALL SCREENING: Has the patient had 2 falls in the last year or 1 fall with injury or currently using an Ambulatory Assistive Device (Walker, Cane, Wheelchair, Crutches, etc.)? No PATIENT GENDER DATA: Female. status: : No status: NO. PATIENT RELEVANT IMPLANT DATA REVIEWED: Not Applicable RADIOLOGY DEPARTMENT: Ultrasound PERIPHERAL IV DATA: Not applicable SIGNED BY: Rebecca Puente RDMS RVT December 20, 2022 11:23 AM documented in this encounterMain [facility] Center01-19-2023 Miscellaneous Notes* Telephone Encounter - Joanie Rosario LPN - 12/07/2022 10:41 AM EST Called pt left message as such. * Telephone Encounter - Dillon Watts APRN.CNP - 12/07/2022 10:09 AM EST No need for another carotid ultrasound at this time. Dillon Watts APRN.CNP * Telephone Encounter - Joanie Rosario LPN - 12/07/2022 9:57 AM EST Mrs. Newman came to [facility] , she states was scheduled for ultrasound of her carotids tomorrow . Justhad one 06/22/[address] Moscoso she went and got copies and brought these to us. She states will cancel appointment for tomorrow and put out a week so doctor can look and see and let her know if she really needs another.Please advise. Papers given to Rebeka to view. documented in this encounterMain [facility] Center01-17-2023 History of Present illness Narrative* Rishi Vasquez, DO - 12/05/2022 10:01 AM EST Patient presents with: 6 Month Exam HPI: Gely Newman is a 72 year old female who presents to the office today for review of health conditions. Concerns today Twisted right knee, occurred last month, thinks twisted/turned knee when stepping down step in her garage, feels this is improving. Hx of left total knee replacement- no pain in that joint Left >right biceps pain, started a few months ago, no known obvious injury. Hx of rotator cuff surgery on left. Left hand dominant. Able to still do what she needs to do, just has to use both armsif lifting something >15 lbs. Fall and right wrist injury in Aug. Was seen in the EMERGENCY DEPARTMENT. Tripped over dori when feeding her stray cat. Feels that it is recovered + fatigue Vertigo, intermittently having to do her BPPV exerises. Worse when she bends over and tries to stand back up. Was seen by ENT in the past. Worse when her neck is flexed. Hasn't had recent recheck of her carotid arteries/atherosclerosus. No syncope or presyncope. Ms. Newman has past history of diabetes. Since our last visit she denies excessive thirst or increased frequency of urination, chest pain or dyspnea , new or unusual visual symptoms, and low sugar/hypoglycemic reactions. Depression- no. Follows a diabetic diet some of the time. She is compliant with medication(s) and is tolerating med(s) without any side effects. She reports checking her glucose on a once a day schedule with sugars in the <150 range. Patient's last HgA1C was Hemoglobin A1C (%) Date Value 08/31/2022 6.9 02/23/2022 7.3 11/28/2021 7.0 05/24/2021 6.7 Hemoglobin A1C (POCT) (%) Date Value 05/31/2022 6.2 ) Last Ophthalmology exam was within the past 12 months Ms. Newman reports history of hyperlipidemia. Current therapy includes simvastatin (Zocor) 40 mg. Denies side effects of muscle weakness or achiness. Her most recent lipid panels are reviewed. Cholesterol, Total (mg/dL) Date Value 08/31/2022 174 11/28/2021 190 HDL Cholesterol (mg/dL) Date Value 08/31/2022 49 11/28/2021 55 LDL Cholesterol (mg/dL) Date Value 08/31/2022 83 11/28/2021 95 Triglyceride (mg/dL) Date Value 08/31/2022 211 11/28/2021 199 Ms. Newman indicates a history of hypertension and states that she is feeling well and denies any symptoms referable to elevated blood pressure. Specifically denies headache, chest pain, palpitations, dyspnea, and peripheral edema. Patient denies any side effects of her medication(s) and is compliant with their regimen. Last 3 Encounter BP Readings: Date: BP: 12/05/2022 126/82 09/23/2022 160/72 08/15/2022 162/86 She watches her diet for sodium, low fat and low cholesterol some of the time. She does not check BP's generally. Gely gets minimal exercise. 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 Ch Frog Shaker, 90% blockage- unable to do stenting Diabetes mellitus type 2 in obese (HCC) Diabetic feet (HCC) Gangrene (HCC) 2012 RIGHT FOOT Hypertension Mild non proliferative diabetic retinopathy (HCC) 06/11/2013 Both eyes, Dr. Ortiz [facility]-03/25/2020 left mild, right moderate Multiple thyroid nodules last US 01/2015 Peripheral artery disease (HCC) due to Diabetes mellitus, Dr. Kwaku Moscoso Rotator cuff syndrome of left shoulder Dr. Del[facility] PAST SURGICAL HISTORY Procedure Laterality Date AMPUTATION TOE INTERPHALANGEAL JOINT 01-01-2013 left 5th toe due to diabetes gangrene ARTHROSCOPY KNEE DIAGNOSTIC W/WO SYNOVIAL BX SPX 12/31/13 Arthroscopy, knee lt COLONOSCOPY FLX DX W/COLLJ SPEC WHEN PFRMD 11-21-13 tubular adenomas, repeat in 3 years COLONOSCOPY FLX DX W/COLLJ SPEC WHEN PFRMD 10/25/2016 ESOPHAGOGASTRODUODENOSCOPY TRANSORAL DIAGNOSTIC 10/25/2016 EXC TUMOR SOFT TISS FOREARM AND/WRIST SUBQ 3+CM 09/08/14 Exc. right olecrenon dermal/SC mass FNA WITH IMAGING 03/17/15 U/S FNA bilateral thyroid PAST SURGICAL HISTORY OF Left foot - diabetic PAST SURGICAL HISTORY OF Left 06/2015 TKA PAST SURGICAL HISTORY OF Left 10/2016 excision of bone REVSC OPN/PRG FEM/POP W/ANGIOPLASTY UNI 12-31-12 RIGHT FOOT REVSC OPN/PRQ FEM/POP W/ATHRC/ANGIOP SM VSL 02-10-13 right leg REVSC OPN/PRQ FEM/POP W/ATHRC/ANGIOP SM VSL 04-08-13 ROTATOR CUFF REPAIR 03/11/[address] Dr[address] [facility] CATHJ EA 1ST ORD ABDL PEL/LXTR ART BRNCH 06-07-16 APLL Social History Tobacco Use Smoking status: Former Packs/day: 0.50 Years: 45.00 Pack years: 22.50 Types: Cigarettes Quit date: 12/20/2012 Years since quittin.9 Smokeless tobacco: Never Substance Use Topics Alcohol use: No Drug use: No FAMILY HISTORY Problem Relation Age of Onset Diabetes Maternal Grandmother Emphysema Mother Osteoporosis Mother Heart Father Stroke Father Allergies: ALLERGIES Allergen Reactions Sulfa (Sulfonamide * Unknown childhood Current Meds: estradiol (ESTRACE) 0.01 % (0.1 mg/gram) vaginal cream Use 1 g vaginally two times a week. glimepiride (AMARYL) 2 mg tablet Take 1 tablet by mouth twice daily with meals. gabapentin (NEURONTIN) 600 mg tablet Take 1 tablet by mouth three times daily for 30 days. metFORMIN (GLUCOPHAGE) 500 mg tablet Take 1 tablet by mouth twice daily with meals. lisinopril (ZESTRIL, PRINIVIL) 40 mg tablet Take 1 tablet by mouth once daily. (Patient taking differently: Take 20 mg by mouth once daily.) hydroCHLOROthiazide (HYDRODIURIL, ESIDRIX) 25 mg tablet Take 1 tablet by mouth once daily. blood sugar diagnostic (BLOOD GLUCOSE TEST) test strip Test blood sugar(s) one times daily. Dx: Other DM Code E11.51 Insulin: No blood sugar diagnostic (ONETOUCH ULTRA TEST) test strip Use as instructed simvastatin (ZOCOR) 40 mg tablet Take 1 tablet by mouth daily at bedtime. lisinopril (ZESTRIL, PRINIVIL) 40 mg tablet Take 1 tablet by mouth once daily. Blood Pressure Test Kit-Medium kit 1 Device once daily. Dx: Essential hypertension clopidogrel (PLAVIX) 75 mg tablet Take 75 mg by mouth once daily. ferrous sulfate 325 mg (65 mg iron) tablet Take 325 mg by mouth daily with breakfast. Cholecalciferol, Vitamin D3, 25 mcg (1,000 unit) cap Take 1,000 Units by mouth once daily. amLODIPine (NORVASC) 5 mg tablet Take 1 tablet by mouth once daily. (Patient taking differently: Take 10 mg by mouth once daily.) SACCHAROMYCES BOULARDII (PROBIOTIC, S.BOULARDII, ORAL) Take 1 capsule by mouth once daily. Cranberry Extract 300 mg tab Take by mouth. acetaminophen (TYLENOL) 325 mg tablet Take 650 mg by mouth every 6 hours as needed. ascorbic acid, vitamin C, (VITAMIN C) 500 mg tablet Take 1 tablet by mouth once daily. Oxulmxgp-Yfyv-Jvj-Folic Acid 18-0.4 mg tab Take 1 tablet by mouth once daily. metoprolol succinate ER (TOPROL XL) 50 mg 24 hr tablet Take 1 tablet by mouth once daily. omega-3 fatty acids 1,000 mg cap Take 1 capsule by mouth once daily. Aspirin 81 mg Tab Take 1 tablet by mouth once daily. Take with food. Review of Systems: The remainder of the review of systems is negative. PE: 12/05/22 0940 BP: 126/82 Pulse: 64 Resp: 16 Temp: 36.3 C (97.3 F) TempSrc: Right Tympanic Weight: 72.6 kg (160 lb) Gen: A&O, NAD, non-toxic appearing, Pleasant, cooperative HEENT: NT/AC, PERRLA, EOMs intact b/l, nares clear and patent b/l, pharynx without erythema, exudate or lesions. MMM, Uvula midline. EACs without erythema or debris. TMs pearly carbajal with intact landmarks b/l. Neck: supple, No cervical LAD, no thyromegaly, no carotid bruits CV: RRR, normal S1 and S2, 1/6 HSM RUSB murmurs, no gallops, no rubs, Pulses 2+ and symmetric in UE Lungs: normal respiratory effort, CTA b/l, no wheezing or rhonchi or rales Abd: soft, NT, ND, +BS, no hepatosplenomegaly MS: reduced strength b/l biceps, + biceps defect on left >right arm with mild tenderness in the muscle belly Neuro: CN II-XII intact b/l Gait stable with cane Skin: warm, dry, intact, No rashes or lesions on exposed skin. Foot exam: Monofilament abnormal on right and left feet. ASSESSMENT/PLAN: 1. 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) - ICD9: 250.70, 443.81, ICD10: E11.51 (primary diagnosis) Controlled. - Continue current medications - Check HgA1C, fasting glucose, and fasting lipid panel - Blood glucose monitoring on a twice a day schedule - Encouraged regular aerobic exercise and weight loss - HGB A1C 2. Peripheral vascular occlusive disease (HCC) - ICD9: 443.9, ICD10: I73.9 rx refilled, stable - GABAPENTIN 600 MG TABLET 3. Dyslipidemia (high LDL; low HDL) - ICD9: 272.4, ICD10: E78.5 - to be determined upon return of lab results - Continue current medication. - Encouraged following a low fat, low cholesterol diet. - Discussed the benefits of regular aerobic exercise and weight loss. - SIMVASTATIN 40 MG TABLET 4. Essential hypertension - ICD9: 401.9, ICD10: I10 - good control - Continue current medication(s) - Encouraged dietary sodium restriction/DASH diet - Recommended regular aerobic exercise. - Recommend home blood pressure monitoring, to bring results in on next visit - Goal of BP <130/80 - HYDROCHLOROTHIAZIDE 25 MG TABLET 5. Dizziness - ICD9: 780.4, ICD10: R42 Recheck labs and carotid artery US, consider PHYSICAL THERAPY for vestibular and CT brain if symptoms worsen - CBC + DIFF - TSH BLD - T4 FREE/FREE THYROX - COMP METABOLIC PANEL - MAGNESIUM BLD - CK CREATINE KINASE 6. Carotid atherosclerosis, bilateral - ICD9: 433.10, 433.30, ICD10: I65.23 Recheck labs and carotid artery US, consider PHYSICAL THERAPY for vestibular and CT brain if symptoms worsen - US CAROTID ARTERIES [facility] 7. Biceps rupture, proximal, left, initial encounter - ICD9: 840.8, ICD10: S46.212A She isn't interested in seeing orthopedics or PHYSICAL THERAPY, still has good range of motion - CBC + DIFF - COMP METABOLIC PANEL - MAGNESIUM BLD - CK CREATINE KINASE 8. Chronic kidney disease, stage 3a (HCC) - ICD9: 585.3, ICD10: N18.31 - eGFR: Stable - Counseled on avoiding regular use of NSAIDs, adequate hydration, potential risk of IV dye Rishi Vasquez DO To ER if develops chest pain, shortness of breath, or severe worsening of symptoms. Discussed risks, benefits, alternatives, and potential side effects of medications. Patient expressed understanding and agreed with the plan. Rishi Vasquez DO [address] [place] [address] documented in this encounterMain [facility] Center11-05-2022 History of Present illness Narrative* Camille Mitchell PA-C - 09/23/2022 10:45 AM EDT This note was created using Sendbloomriter. Subjective Gely Newman is a 72 year old female. HPI Presents with a chief complaint of urinary frequency for 1 and half to 2 weeks. She has had some pelvic cramping off and on. She has had recurrent UTIs previously. No back pain. No vomiting or diarrhea. No fever. No vaginal complaints. Review of Systems Constitutional: Negative. HENT: Negative. Respiratory: Negative. Cardiovascular: Negative. Gastrointestinal: Negative. Genitourinary: Positive for dysuria, frequency, pelvic pain and urgency. Negative for hematuria. Musculoskeletal: Negative. All other systems reviewed and are negative. 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 Ch Frog Shaker, 90% blockage- unable to do stenting Diabetes mellitus type 2 in obese (HCC) Diabetic feet (HCC) Gangrene ([facility]) 2012 RIGHT FOOT Hypertension Mild non proliferative diabetic retinopathy (HCC) 06/11/2013 Both eyes, Dr. Ortiz [facility]-03/25/2020 left mild, right moderate Multiple thyroid nodules last US 01/2015 Peripheral artery disease (HCC) due to Diabetes mellitus, Dr. Kwaku Moscoso Rotator cuff syndrome of left shoulder Dr. [facility] Current Outpatient Medications Medication Sig Dispense Refill glimepiride (AMARYL) 2 mg tablet Take 1 tablet by mouth twice daily with meals. 180 tablet 1 gabapentin (NEURONTIN) 600 mg tablet Take 1 tablet by mouth three times daily for 30 days. 90 tablet 3 metFORMIN (GLUCOPHAGE) 500 mg tablet Take 1 tablet by mouth twice daily with meals. 180 tablet 3 lisinopril (ZESTRIL, PRINIVIL) 40 mg tablet Take 1 tablet by mouth once daily. (Patient taking differently: Take 20 mg by mouth once daily.) 90 tablet 1 hydroCHLOROthiazide (HYDRODIURIL, ESIDRIX) 25 mg tablet Take 1 tablet by mouth once daily. 30 tablet 11 blood sugar diagnostic (BLOOD GLUCOSE TEST) test strip Test blood sugar(s) one times daily. Dx: Other DM Code E11.51 Insulin: No 50 Strip 11 blood sugar diagnostic (ONETOUCH ULTRA TEST) test strip Use as instructed 100 Each 2 simvastatin (ZOCOR) 40 mg tablet Take 1 tablet by mouth daily at bedtime. 90 tablet 3 Blood Pressure Test Kit-Medium kit 1 Device once daily. Dx: Essential hypertension 1 Kit 0 clopidogrel (PLAVIX) 75 mg tablet Take 75 mg by mouth once daily. ferrous sulfate 325 mg (65 mg iron) tablet Take 325 mg by mouth daily with breakfast. Cholecalciferol, Vitamin D3, 25 mcg (1,000 unit) cap Take 1,000 Units by mouth once daily. amLODIPine (NORVASC) 5 mg tablet Take 1 tablet by mouth once daily. (Patient taking differently: Take 10 mg by mouth once daily.) 30 tablet 5 estradiol (ESTRACE) 0.01 % (0.1 mg/gram) vaginal cream Use 1 g vaginally twice a week. 1 Tube 3 SACCHAROMYCES BOULARDII (PROBIOTIC, S.BOULARDII, ORAL) Take 1 capsule by mouth once daily. Cranberry Extract 300 mg tab Take by mouth. 0 acetaminophen (TYLENOL) 325 mg tablet Take 650 mg by mouth every 6 hours as needed. ascorbic acid, vitamin C, (VITAMIN C) 500 mg tablet Take 1 tablet by mouth once daily. Cyztubrl-Bjqi-Wrb-Folic Acid 18-0.4 mg tab Take 1 tablet by mouth once daily. metoprolol succinate ER (TOPROL XL) 50 mg 24 hr tablet Take 1 tablet by mouth once daily. 0 omega-3 fatty acids 1,000 mg cap Take 1 capsule by mouth once daily. Aspirin 81 mg Tab Take 1 tablet by mouth once daily. Take with food. 30 tablet 11 cephALEXin (KEFLEX) 500 mg capsule Take 1 capsule by mouth twice daily for 7 days. 14 capsule 0 lisinopril (ZESTRIL, PRINIVIL) 40 mg tablet Take 1 tablet by mouth once daily. 30 tablet 5 No current facility-administered medications for this visit. PAST SURGICAL HISTORY Procedure Laterality Date AMPUTATION TOE INTERPHALANGEAL JOINT 01-01-2013 left 5th toe due to diabetes gangrene ARTHROSCOPY KNEE DIAGNOSTIC W/WO SYNOVIAL BX SPX 12/31/13 Arthroscopy, knee lt COLONOSCOPY FLX DX W/COLLJ SPEC WHEN PFRMD 11-21-13 tubular adenomas, repeat in 3 years COLONOSCOPY FLX DX W/COLLJ SPEC WHEN PFRMD 10/25/2016 ESOPHAGOGASTRODUODENOSCOPY TRANSORAL DIAGNOSTIC 10/25/2016 EXC TUMOR SOFT TISS FOREARM AND/WRIST SUBQ 3+CM 09/08/14 Exc. right olecrenon dermal/SC mass FNA WITH IMAGING 03/17/15 U/S FNA bilateral thyroid PAST SURGICAL HISTORY OF Left foot - diabetic PAST SURGICAL HISTORY OF Left 06/2015 TKA PAST SURGICAL HISTORY OF Left 10/2016 excision of bone REVSC OPN/PRG FEM/POP W/ANGIOPLASTY UNI 12-31-12 RIGHT FOOT REVSC OPN/PRQ [facility] right leg REVSC OPN/PRQ FEM/POP W/ATHRC/ANGIOP VSL 04-08-13 ROTATOR CUFF REPAIR 03/11/14 Dr. Deluna [facility] CATHJ EA 1ST ORD ABDL [facility] APLL FAMILY HISTORY Problem Relation Age of Onset Diabetes Maternal Grandmother Emphysema Mother Osteoporosis Mother Heart Father Stroke Father Social History Tobacco Use Smoking status: Former Packs/day: 0.50 Years: 45.00 Pack years: 22.50 Types: Cigarettes Quit date: 12/20/2012 Years since quittin.7 Smokeless tobacco: Never Substance Use Topics Alcohol use: No Drug use: No Objective BP 160/72 Pulse 62 Temp 36.4 C (97.5 F) Resp 21 Wt 74.9 kg (165 lb 3.2 oz) SpO2 99% BMI26.66 kg/m Physical Exam Vitals reviewed. Constitutional: Appearance: Normal appearance. HENT: Head: Normocephalic and atraumatic. Cardiovascular: Rate and Rhythm: Normal rate and regular rhythm. Heart sounds: Normal heart sounds. Pulmonary: Effort: Pulmonary effort is normal. Breath sounds: Normal breath sounds. Abdominal: General: Abdomen is flat. Palpations: Abdomen is soft. Tenderness: There is no abdominal tenderness. There is no right CVA tenderness, left CVA tendernessor guarding. Skin: General: Skin is warm and dry. Findings: No rash. Neurological: Mental Status: She is alert. Assessment and Plan ASSESSMENT/PLAN: 1. Acute cystitis with hematuria - ICD9: 595.0, ICD10: N30.01 UA positive for leuk esterase and hematuria. I will start her on Keflex. Patient states she is normally on Cipro, I did discuss the black box warnings and that this is not what I would pick first-line for UTI if safer alternatives are available. She has had urine cultures that have grown different bacterias. I will send for urine culture and adjust antibiotic as needed. Patient was agreeable withthis plan. - UA DIP, URINE (POC) - URINE CULTURE Camille Mitchell PA-C documented in this encounterMain [facility] Center10-20-2022 Miscellaneous Notes* Telephone Encounter - Sara Solis RN - 09/07/2022 11:05 AM EDT Pt called and is notified of providers results and instructions. Pt voices understanding. Pt sent information through Andel per Pt request. Sara Solis RN * Telephone Encounter - Aiyana Gaffney LPN - 09/07/2022 9:45 AM EDT Phoned patient and left message to return call and ask to speak to a nurse. * Telephone Encounter - Rishi Vasquez DO - 09/06/2022 9:10 PM EDT Please inform patient that her a1c has improved to 6.9% (down from 7.3%), her cholesterol is also stable. Her BUN and creatinine are both slightly elevated. Is she still taking 40 mg of her lisinopril? I would like her to discuss with her pathology transcriptionist to decrease this dose to 20 mg a day due to these abnormal kidney levels. Also her TSH is slightly low. I don't think she is taking any thyroid medication. Need for recheck of thyroid labs in 1 month as ordered Rishi Vasquez DO documented in this encounterMain [facility] Center09-27-2022 History of Present illness Narrative* Camille Mitchell PA-C - 08/15/2022 1:07 PM EDT Images from the original note were not included. This note was created using Sendbloomriter. Subjective Gely Newman is a 72 year old female. HPI Patient presents with a fall. Yesterday she tripped over some dori while she was trying to feed some stray cats and fell landing with her wrist on her sternal area. She has some mild sternal pain and her wrist is bruised and swollen. She is on Plavix. She states she did hit the right side of her face but is not having any headache or significant facial pain. No loss of consciousness. No vomiting. No blurred or double vision. No neck pain. She denies pain with a deep breath. No pain in her ribs. Review of Systems Constitutional: Negative. HENT: Negative. Respiratory: Negative. Cardiovascular: Negative. Gastrointestinal: Negative. Musculoskeletal: Sternal pain, right wrist pain All other systems reviewed and are negative. 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 Ch Frog Shaker, 90% blockage- unable to do stenting Diabetes mellitus type 2 in obese (HCC) Diabetic feet (HCC) Gangrene (HCC) 2012 RIGHT FOOT Hypertension Mild non proliferative diabetic retinopathy (HCC) 06/11/2013 Both eyes, Dr. Ortiz [facility]-03/25/2020 left mild, right moderate Multiple thyroid nodules last US 01/2015 Peripheral artery disease (HCC) due to Diabetes mellitus, Dr. Kwaku Moscoso Rotator cuff syndrome of left shoulder [facility] Current Outpatient Medications Medication Sig Dispense Refill glimepiride (AMARYL) 2 mg tablet Take 1 tablet by mouth twice daily with meals. 180 tablet 1 gabapentin (NEURONTIN) 600 mg tablet Take 1 tablet by mouth three times daily for 30 days. 90 tablet 3 metFORMIN (GLUCOPHAGE) 500 mg tablet Take 1 tablet by mouth twice daily with meals. 180 tablet 3 lisinopril (ZESTRIL, PRINIVIL) 40 mg tablet Take 1 tablet by mouth once daily. 90 tablet 1 hydroCHLOROthiazide (HYDRODIURIL, ESIDRIX) 25 mg tablet Take 1 tablet by mouth once daily. 30 tablet 11 blood sugar diagnostic (BLOOD GLUCOSE TEST) test strip Test blood sugar(s) one times daily. Dx: Other DM Code E11.51 Insulin: No 50 Strip 11 blood sugar diagnostic (ONETOUCH ULTRA TEST) test strip Use as instructed 100 Each 2 simvastatin (ZOCOR) 40 mg tablet Take 1 tablet by mouth daily at bedtime. 90 tablet 3 Blood Pressure Test Kit-Medium kit 1 Device once daily. Dx: Essential hypertension 1 Kit 0 clopidogrel (PLAVIX) 75 mg tablet Take 75 mg by mouth once daily. ferrous sulfate 325 mg (65 mg iron) tablet Take 325 mg by mouth daily with breakfast. Cholecalciferol, Vitamin D3, 25 mcg (1,000 unit) cap Take 1,000 Units by mouth once daily. SACCHAROMYCES BOULARDII (PROBIOTIC, S.BOULARDII, ORAL) Take 1 capsule by mouth once daily. Cranberry Extract 300 mg tab Take by mouth. 0 ascorbic acid, vitamin C, (VITAMIN C) 500 mg tablet Take 1 tablet by mouth once daily. Lmdijzhq-Trcd-Twh-Folic Acid 18-0.4 mg tab Take 1 tablet by mouth once daily. metoprolol succinate ER (TOPROL XL) 50 mg 24 hr tablet Take 1 tablet by mouth once daily. 0 omega-3 fatty acids 1,000 mg cap Take 1 capsule by mouth once daily. Aspirin 81 mg Tab Take 1 tablet by mouth once daily. Take with food. 30 tablet 11 lisinopril (ZESTRIL, PRINIVIL) 40 mg tablet Take 1 tablet by mouth once daily. 30 tablet 5 amLODIPine (NORVASC) 5 mg tablet Take 1 tablet by mouth once daily. (Patient taking differently: Take 10 mg by mouth once daily. ) 30 tablet 5 estradiol (ESTRACE) 0.01 % (0.1 mg/gram) vaginal cream Use 1 g vaginally twice a week. 1 Tube 3 acetaminophen (TYLENOL) 325 mg tablet Take 650 mg by mouth every 6 hours as needed. No current facility-administered medications for this visit. PAST SURGICAL HISTORY Procedure Laterality Date AMPUTATION TOE INTERPHALANGEAL JOINT 01-01-2013 left 5th toe due to diabetes gangrene ARTHROSCOPY KNEE DIAGNOSTIC W/WO SYNOVIAL BX SPX 12/31/13 Arthroscopy, knee lt COLONOSCOPY FLX DX W/COLLJ SPEC WHEN PFRMD 11-21-13 tubular adenomas, repeat in 3 years COLONOSCOPY FLX DX W/COLLJ SPEC WHEN PFRMD 10/25/2016 ESOPHAGOGASTRODUODENOSCOPY TRANSORAL DIAGNOSTIC 10/25/2016 EXC TUMOR SOFT TISS FOREARM AND/WRIST SUBQ 3+CM 09/08/14 Exc. right olecrenon dermal/SC mass FNA WITH IMAGING 03/17/15 U/S FNA bilateral thyroid PAST SURGICAL HISTORY OF Left foot - diabetic PAST SURGICAL HISTORY OF Left 06/2015 TKA PAST SURGICAL HISTORY OF Left 10/2016 excision of bone REVSC OPN/PRG FEM/POP W/ANGIOPLASTY UNI 12-31-12 RIGHT FOOT REVSC OPN/PRQ FEM/POP W/ATHRC/ANGIOP VSL 02-10-13 right leg REVSC OPN/PRQ [facility]EM/P[facility] ROTATOR CUFF REPAIR 03/11/14 Dr. Deluna [facility] CATH EA 1ST ORD ABDL PEL/LXTR ART BRNCH 06-07-16 APLL FAMILY HISTORY Problem Relation Age of Onset Diabetes Maternal Grandmother Emphysema Mother Osteoporosis Mother Heart Father Stroke Father Social History Tobacco Use Smoking status: Former Packs/day: 0.50 Years: 45.00 Pack years: 22.50 Types: Cigarettes Quit date: 12/20/2012 Years since quittin.6 Smokeless tobacco: Never Substance Use Topics Alcohol use: No Drug use: No Objective BP 162/86 Pulse (!) 49 Temp 36.6 C (97.8 F) (Tympanic) Resp 18 Wt 75 kg (165 lb 6.4 oz) SpO2 98% BMI 26.70 kg/m Physical Exam Vitals reviewed. Constitutional: Appearance: Normal appearance. HENT: Head: Normocephalic and atraumatic. Cardiovascular: Rate and Rhythm: Normal rate and regular rhythm. Heart sounds: Normal heart sounds. Pulmonary: Effort: Pulmonary effort is normal. Breath sounds: Normal breath sounds. Chest: Comments: Patient tender on the lower sternum. No bruising. No broken skin. No tenderness of the anterior or lateral ribs. Lungs are clear. Minimal pain with range of motion. Abdominal: General: Abdomen is flat. There is no distension. Palpations: Abdomen is soft. There is no mass. Tenderness: There is no abdominal tenderness. There is no guarding. Musculoskeletal: Comments: Patient has diffuse bruising and swelling over the anterior dorsal wrist. Minimal pain with range of motion. She is tender over the distal radius and snuffbox area. No pain over the metacarpals of the hand. Normal hand grasp strength. Radial pulse 2+. Skin: General: Skin is warm and dry. Neurological: Mental Status: She is alert. Assessment and Plan ASSESSMENT/PLAN: 1. Injury of sternum, initial encounter - ICD9: 959.11, ICD10: S29.9XXA (primary diagnosis) Xrays are negative. Likely contusion. She has no abdominal pain on palpation or sign of intrabdominal injury. Recommend rest, tylenol, ice. Follow up with pcp if not improving. - XR STERNUM 2V BARAJAS/LAT 2. Wrist injury, right, initial encounter - ICD9: 959.3, ICD10: S69.91XA Xrays negative for fracture. She does have arthritis. Rest, ice, elevation.wrist splint applied from express care stock. Follow up if not improving. - XR WRIST INJURY 4V PA/LAT/OBL/SCAPH RIGHT Camille Mitchell PA-C documented in this encounterMain [facility] Center07-30-2022 History of Present illness Narrative* Kena Older, PROGRAMS DIRECTOR.SHOEMAKING FINISHER - 06/17/2022 8:33 AM EDT CC: Patient presents with: Arm Pain: R upper arm pain x last night HPI Gely Newman is a 72 year old female who presents today for above. Injury: Tripped and hit the wall hard on the right shoulder/arm. Immediate, severe pain Localized to the right anterior shoulder Described as constant dull ache. This morning shoulder felt stiff and could barely raise her arm. Not as bad now. Clicking, locking, popping, feeling like the shoulder is not stable, feeling like the shoulder is giving out: No Denies bruising or swelling Associated symptoms: She notes no neck pain, no radiation of shoulder pain, and no numbness or tingling noted of the upper extremity exhibits aggravating factors of Any movement of the arm. exhibits alleviating factors of Rest and avoidance of aggravating activities. Treatment: Treatments so far have included medication (Tylenol) with minor relief of symptoms. 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 Ch Frog Shaker, 90% blockage- unable to do stenting Diabetes mellitus type 2 in obese (HCC) Diabetic feet (HCC) Gangrene (HCC) 2012 RIGHT FOOT Hypertension Mild non proliferative diabetic retinopathy (HCC) 06/11/2013 Both eyes, Dr. Ortiz [facility]-03/25/2020 left mild, right moderate Multiple thyroid nodules last US 01/2015 Peripheral artery disease (HCC) due to Diabetes mellitus, Dr. Kwaku Moscoso Rotator cuff syndrome of left shoulder [facility]. [facility] PAST SURGICAL HISTORY Procedure Laterality Date AMPUTATION TOE INTERPHALANGEAL JOINT 01-01-2013 left 5th toe due to diabetes gangrene ARTHROSCOPY KNEE DIAGNOSTIC W/WO SYNOVIAL BX SPX 12/31/13 Arthroscopy, knee lt COLONOSCOPY FLX DX W/COLLJ SPEC WHEN PFRMD -01-30 tubular adenomas, repeat in 3 years COLONOSCOPY FLX DX W/COLLJ SPEC WHEN PFRMD 10/25/2016 ESOPHAGOGASTRODUODENOSCOPY TRANSORAL DIAGNOSTIC 10/25/2016 EXC TUMOR SOFT TISS FOREARM AND/WRIST SUBQ 3+CM 09/08/14 Exc. right olecrenon dermal/SC mass FNA WITH IMAGING 03/17/15 U/S FNA bilateral thyroid PAST SURGICAL HISTORY OF Left foot - diabetic PAST SURGICAL HISTORY OF Left 06/2015 TKA PAST SURGICAL HISTORY OF Left 10/2016 excision of bone REVSC OPN/PRG FEM/POP W/ANGIOPLASTY UNI 12-31-12 RIGHT FOOT REVSC OPN/PRQ FEM/POP W/ATHRC/ANGIOP SM VSL 02-10-13 right leg REVSC OPN/PRQ FEM/POP W/ATHRC/ANGIOP SM VSL 04-08-13 ROTATOR CUFF REPAIR 03/11/14 Dr. Deluna [facility] CATH EA 1ST ORD ABDL PEL/LXTR ART BRNCH 06-07-16 APLL ALLERGIES Sulfa (Sulfonamide Antibiotics) MEDICATIONS gabapentin (NEURONTIN) 600 mg tablet Take 1 tablet by mouth three times daily for 30 days. metFORMIN (GLUCOPHAGE) 500 mg tablet Take 1 tablet by mouth twice daily with meals. lisinopril (ZESTRIL, PRINIVIL) 40 mg tablet Take 1 tablet by mouth once daily. hydroCHLOROthiazide (HYDRODIURIL, ESIDRIX) 25 mg tablet Take 1 tablet by mouth once daily. blood sugar diagnostic (BLOOD GLUCOSE TEST) test strip Test blood sugar(s) one times daily. Dx: Other DM Code E11.51 Insulin: No blood sugar diagnostic (ONETOUCH ULTRA TEST) test strip Use as instructed glimepiride (AMARYL) 2 mg tablet Take 1 tablet by mouth twice daily with meals. simvastatin (ZOCOR) 40 mg tablet Take 1 tablet by mouth daily at bedtime. lisinopril (ZESTRIL, PRINIVIL) 40 mg tablet Take 1 tablet by mouth once daily. Blood Pressure Test Kit-Medium kit 1 Device once daily. Dx: Essential hypertension clopidogrel (PLAVIX) 75 mg tablet Take 75 mg by mouth once daily. ferrous sulfate (IRON) 325 mg (65 mg iron) tablet Take 325 mg by mouth daily with breakfast. Cholecalciferol, Vitamin D3, (VITAMIN D) 1,000 unit cap Take 1,000 Units by mouth once daily. docusate sodium (COLACE) 100 mg capsule Take 100 mg by mouth twice daily. amLODIPine (NORVASC) 5 mg tablet Take 1 tablet by mouth once daily. estradiol (ESTRACE) 0.01 % (0.1 mg/gram) vaginal cream Use 1 g vaginally twice a week. SACCHAROMYCES BOULARDII (PROBIOTIC, S.BOULARDII, ORAL) Take 1 capsule by mouth once daily. Cranberry Extract 300 mg tab Take by mouth. acetaminophen (TYLENOL) 325 mg tablet Take 650 mg by mouth every 6 hours as needed. ascorbic acid (VITAMIN C) 500 mg tablet Take 1 tablet by mouth once daily. Djhjwosi-Vdhq-Ceu-Folic Acid (CENTRUM COMPLETE) 18-0.4 mg tab Take 1 tablet by mouth once daily. metoprolol succinate XL, long acting, (TOPROL XL) 50 mg 24 hr tablet Take 1 tablet by mouth once daily. omega-3 fatty acids 1,000 mg cap Take 1 capsule by mouth once daily. Aspirin 81 mg Tab Take 1 tablet by mouth once daily. Take with food. FAMILY HISTORY Problem Relation Age of Onset Diabetes Maternal Grandmother Emphysema Mother Osteoporosis Mother Heart Father Stroke Father Social History Tobacco Use Smoking status: Former Smoker Packs/day: 0.50 Years: 45.00 Pack years: 22.50 Types: Cigarettes Quit date: 12/20/2012 Years since quittin.4 Smokeless tobacco: Never Used Substance Use Topics Alcohol use: No Drug use: No PHYSICAL EXAM BP 158/80 Pulse (!) 59 Temp 36.6 C (97.9 F) Resp 20 Wt 76.4 kg (168 lb 6.4 oz) SpO2 97% BMI 27.18 kg/m General Appearance: well appearing, in no acute distress, alert Musculoskeletal: Right shoulder: normal to inspection. Moderate tenderness with palpation of anterior shoulder. ROM: full but painful. Special tests: Drop arm: -, Empty Can: -, Infraspinatus: -, Rios:+, Neer + Upper extremities:Muscle strength: 5/5 bilaterally. Pulses 2+. Cap refill <2 seconds ASSESSMENT/PLAN: 1. Acute pain of right shoulder - ICD9: 719.41, ICD10: M25.511 - XR SHOULDER GENERAL 3V OR MORE AP/TRUE AP/OTHER RIGHT today read by me, no acute findings including fracture or dislocation. Discussed with patient and advised she will be notified if radiologist findings differ. - Discussed symptomatic treatment. She is unable to take NSAID's due to Plavix and kidney disease. Recommend topical anti-inflammatories such as Voltaren gel along with ice and gentle ROM exercises - Follow-up with PCP in 1-2 weeks if no improvement or sooner if worsening Prescription instructions reviewed with patient as applicable. Potential red flag symptoms discussed with the patient. Reviewed appropriate action plan to take if red flag symptoms occur. Patient agreeable to treatment plan. Kena Sims APRN.CNP documented in this encounterMain [facility]07-18-2022 Miscellaneous Notes* Telephone Encounter - Sara Solis RN - 06/05/2022 4:39 PM EDT Pt called and is notified of providers results and instructions. Pt voices understanding. Pt sent through to scheduling to set up diagnostic and US of R breast. Sara Solis RN * Telephone Encounter - Dillon Watts APRN.CNP - 06/05/2022 4:32 PM EDT Please let Gely know that there is an asymmetry noted in her right breast on the mammogram. Radiology is requesting additional imaging. Please assist her to schedule this. Dillon Watts APRN.CNP documented in this encounterMain Campus [facility] Center07-18-2022 Miscellaneous Notes* Letter - Mammography Coordinator - 06/05/2022 12:46 PM EDT June 05, 2022 PID: [id number] Gely Newman [address] [place] [address] Dear Ms. Newman, Your recent breast imaging exam on 06/05/2022 showed a possible finding that requires additional imaging studies for a complete evaluation. Most such findings are probably benign (not cancer). If you have a healthcare provider who ordered/prescribed your screening mammogram: Please call [phone] or [phone]: [phone] to schedule an appointment for your additional imaging (if youhave not already done so). If you DO NOT have a healthcare provider (ie you did not have an order/prescription for your screening mammogram): Please call to schedule an appointment for your additional imaging (if you have not already done so). You must have an order/prescription from your physician when calling to schedule your appointment. If your order/prescription is not electronic, you must bring the hard copy with you on the day of your exam to avoid delays. Your imaging studies and reports are kept [facility] as part of your permanent medical record, and are available for your continuing care. Thank you for allowing us to help in meeting your health care needs. Sincerely, Dr. Benjamin Interpreting Radiologist [facility] (Additional imaging) documented in this encounterMain Campus Medical Center07-18-2022 History of Present illness Narrative* RT Mono(R) - 06/05/2022 10:10 AM EDT Radiology Service Progress Note PATIENT NAME: Gely Newman DATE OF SERVICE: June 05, 2022 TIME: 10:08 AM PATIENT IDENTITY VERIFICATION COMPLETED USING TWO (2) IDENTIFIERS: Name and Date of confirmedby patient verbally. FALL SCREENING: Has the patient had 2 falls in the last year or 1 fall with injury or currently using an Ambulatory Assistive Device (Walker, Cane, Wheelchair, Crutches, etc.)? No PATIENT GENDER DATA: Female. status: : No status: NO. PATIENT RELEVANT IMPLANT DATA REVIEWED: Not Applicable RADIOLOGY DEPARTMENT: Mammography PERIPHERAL IV DATA: Not applicable SIGNED BY: RT Mono(R) June 05, 2022 10:08 AM documented in this encounterMain Campus Medical Center07-13-2022 History of Present illness Narrative* Rishi Vasquez, - 05/31/2022 10:58 AM EDT Patient presents with: 6 Month Exam HPI: Gely Newman is a 72 year old female who presents to the office today for review of health conditions. Concerns today: PAD, hx of foot ulcerations, currently with one on her right foot, managed by Ortho Rn Hx of CAD, PAD, sees [facility]. Will have follow up in the next 1-2 months. No recent chest pressure or pain or dyspnea or dizziness/LH or edema changes. + fatigue Has been trying to limit sugar and salt intake Blood glucose levels usually 120-170 in the AM fasting, admits to sometimes eating too many grams of carbohydrates. Ms. Newman has past history of diabetes. Since our last visit she denies excessive thirst or increased frequency of urination, chest pain or dyspnea , new or unusual visual symptoms and low sugar/hypoglycemic reactions. Follows a diabetic diet some of the time. She is compliant with medication(s) and is tolerating med(s) without any side effects. She reports checking her glucose on a once a day schedule with sugars in the <200 range. Patient's last HgA1C was Hemoglobin A1C (%) Date Value 02/23/2022 7.3 11/28/2021 7.0 05/24/2021 6.7 ) Last Ophthalmology exam was within the past 12 months Ms. Newman reports history of hyperlipidemia. Current therapy includes simvastatin (Zocor) 40 mg. Denies side effects of muscle weakness or achiness. Her most recent lipid panels are reviewed. Cholesterol, Total (mg/dL) Date Value 02/23/2022 186 11/28/2021 190 HDL Cholesterol (mg/dL) Date Value 02/23/2022 60 11/28/2021 55 LDL Cholesterol (mg/dL) Date Value 02/23/2022 97 11/28/2021 95 Triglyceride (mg/dL) Date Value 02/23/2022 147 11/28/2021 199 Ms. Newman indicates a history of hypertension and states that she is feeling well and denies any symptoms referable to elevated blood pressure. Specifically denies headache, chest pain, palpitations, dyspnea and peripheral edema. Patient denies any side effects of her medication(s) and is compliant with their regimen. Last 3 Encounter BP Readings: Date: BP: 05/31/2022 116/70 12/02/2021 160/70 07/14/2021 138/60 She watches her diet for sodium, low fat and low cholesterol some of the time. She does not check BP's generally. Gely gets sporadic irregular exercise. 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 Ch [facility], 90% blockage- unable to do stenting Diabetes mellitus type 2 in obese (HCC) Diabetic feet (HCC) Gangrene (HCC) 2012 RIGHT FOOT Hypertension Mild non proliferative diabetic retinopathy (HCC) 06/11/2013 Both eyes, Dr. Ortiz [facility]-03/25/2020 left mild, right moderate Multiple thyroid nodules last US 01/2015 Peripheral artery disease (HCC) due to Diabetes mellitus, Dr. Kwaku Moscoso Rotator cuff syndrome of left shoulder Dr. Regi Montes [facility] PAST SURGICAL HISTORY Procedure Laterality Date AMPUTATION TOE INTERPHALANGEAL JOINT 01-01-2013 left 5th toe due to diabetes gangrene ARTHROSCOPY KNEE DIAGNOSTIC W/WO SYNOVIAL BX SPX 12/31/13 Arthroscopy, knee lt COLONOSCOPY FLX DX W/COLLJ SPEC WHEN PFRMD 11-21-13 tubular adenomas, repeat in 3 years COLONOSCOPY FLX DX W/COLLJ SPEC WHEN PFRMD 10/25/2016 ESOPHAGOGASTRODUODENOSCOPY TRANSORAL DIAGNOSTIC 10/25/2016 EXC TUMOR SOFT TISS FOREARM AND/WRIST SUBQ 3+CM 09/08/14 Exc. right olecrenon dermal/SC mass FNA WITH IMAGING 03/17/15 U/S FNA bilateral thyroid PAST SURGICAL HISTORY OF Left foot - diabetic PAST SURGICAL HISTORY OF Left 06/2015 TKA PAST SURGICAL HISTORY OF Left 10/2016 excision of bone REVSC OPN/PRG FEM/POP W/ANGIOPLASTY UNI 12-31-12 RIGHT FOOT REVSC OPN/PRQ FEM/POP W/ATHRC/ANGIOP VSL 02-10-13 right leg REVSC OPN/PRQ FEM/POP W/ATHRC/ANGIOP [facility] 04-08-13 ROTATOR CUFF REPAIR 03/11/14 Dr. Regi Thompson [facility] CATHJ EA 1ST ORD ABDL PEL/LXTR ART BRNCH 06-07-16 APLL Social History Tobacco Use Smoking status: Former Smoker Packs/day: 0.50 Years: 45.00 Pack years: 22.50 Types: Cigarettes Quit date: 12/20/2012 Years since quittin.4 Smokeless tobacco: Never Used Substance Use Topics Alcohol use: No Drug use: No FAMILY HISTORY Problem Relation Age of Onset Diabetes Maternal Grandmother Emphysema Mother Osteoporosis Mother Heart Father Stroke Father Allergies: ALLERGIES Allergen Reactions Sulfa (Sulfonamide * Unknown childhood Current Meds: gabapentin (NEURONTIN) 600 mg tablet Take 1 tablet by mouth three times daily for 30 days. metFORMIN (GLUCOPHAGE) 500 mg tablet Take 1 tablet by mouth twice daily with meals. lisinopril (ZESTRIL, PRINIVIL) 40 mg tablet Take 1 tablet by mouth once daily. hydroCHLOROthiazide (HYDRODIURIL, ESIDRIX) 25 mg tablet Take 1 tablet by mouth once daily. blood sugar diagnostic (BLOOD GLUCOSE TEST) test strip Test blood sugar(s) one times daily. Dx: Other DM Code E11.51 Insulin: No blood sugar diagnostic (ONETOUCH ULTRA TEST) test strip Use as instructed glimepiride (AMARYL) 2 mg tablet Take 1 tablet by mouth twice daily with meals. simvastatin (ZOCOR) 40 mg tablet Take 1 tablet by mouth daily at bedtime. lisinopril (ZESTRIL, PRINIVIL) 40 mg tablet Take 1 tablet by mouth once daily. Blood Pressure Test Kit-Medium kit 1 Device once daily. Dx: Essential hypertension clopidogrel (PLAVIX) 75 mg tablet Take 75 mg by mouth once daily. ferrous sulfate (IRON) 325 mg (65 mg iron) tablet Take 325 mg by mouth daily with breakfast. Cholecalciferol, Vitamin D3, (VITAMIN D) 1,000 unit cap Take 1,000 Units by mouth once daily. docusate sodium (COLACE) 100 mg capsule Take 100 mg by mouth twice daily. amLODIPine (NORVASC) 5 mg tablet Take 1 tablet by mouth once daily. SACCHAROMYCES BOULARDII (PROBIOTIC, S.BOULARDII, ORAL) Take 1 capsule by mouth once daily. Cranberry Extract 300 mg tab Take by mouth. acetaminophen (TYLENOL) 325 mg tablet Take 650 mg by mouth every 6 hours as needed. ascorbic acid (VITAMIN C) 500 mg tablet Take 1 tablet by mouth once daily. Fakmeecj-Aipy-Qkm-Folic Acid (CENTRUM COMPLETE) 18-0.4 mg tab Take 1 tablet by mouth once daily. metoprolol succinate XL, long acting, (TOPROL XL) 50 mg 24 hr tablet Take 1 tablet by mouth once daily. omega-3 fatty acids 1,000 mg cap Take 1 capsule by mouth once daily. Aspirin 81 mg Tab Take 1 tablet by mouth once daily. Take with food. estradiol (ESTRACE) 0.01 % (0.1 mg/gram) vaginal cream Use 1 g vaginally twice a week. Review of Systems: The remainder of the review of systems is negative. PE: 05/31/22 1019 BP: 116/70 Pulse: (!) 56 Temp: 36.8 C (98.3 F) TempSrc: Left Tympanic Weight: 75.3 kg (166 lb) Gen: A&O, NAD, non-toxic appearing, Pleasant, cooperative HEENT: NT/AC, PERRLA, EOMs intact b/l, nares clear and patent b/l, pharynx without erythema, exudate or lesions. MMM, Uvula midline. EACs without erythema or debris. TMs pearly carbajal with intact landmarks b/l. Neck: supple, No cervical LAD, no thyromegaly, no carotid bruits CV: RRR, normal S1 and S2, 1/6 HSM soft RUSB murmurs, no gallops, no rubs, Pulses 2+ and symmetric in UE and LE b/l Lungs: normal respiratory effort, CTA b/l, no wheezing or rhonchi or rales Abd: soft, overweight, NT, ND, +BS, no hepatosplenomegaly MS: gait antalgic Neuro: CN II-XII intact b/l Skin: warm, dry, right foot wrapped in dressing Foot exam: abnormal sensation ASSESSMENT/PLAN: 1. 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) - ICD9: 250.70, 443.81, ICD10: E11.51 (primary diagnosis) Uncontrolled in the past, better controlled. Poor adherence to plan of care. - Continue current medications - Blood glucose monitoring on a twice a day schedule - Encouraged regular aerobic exercise and weight loss - Follow up in 3 months, sooner should any other issues arise. - Discussed diabetic education issues of [facility] diabetic complications, diet, medications- side effects and need for compliance and importance of exercise with patient. - BP goal of <130/80 - LDL goal of <100 - METFORMIN 500 MG TABLET - HEMOGLOBIN A1C (POC) - COMP METABOLIC PANEL - CBC - HGB A1C - VITAMIN B12 BLOOD - TSH BLD 2. Peripheral vascular occlusive disease (HCC) - ICD9: 443.9, ICD10: I73.9 - rx refilled. - GABAPENTIN 600 MG TABLET 3. Vitamin D deficiency - ICD9: 268.9, ICD10: E55.9 Recheck labs - VITAMIN D 25 HYDROXY 4. Stage 3 chronic kidney disease, unspecified whether stage 3a or 3b CKD (HCC) - ICD9: 585.3, ICD10: N18.30 - recheck labs, has been stable, chronic - CBC - TSH BLD 5. Essential hypertension - ICD9: 401.9, ICD10: I10 - good control - Continue current medication(s) - Encouraged dietary sodium restriction/DASH diet - Recommended regular aerobic exercise. - Recommend home blood pressure monitoring, to bring results in on next visit - Goal of BP <130/80 - CBC 6. Dyslipidemia (high LDL; low HDL) - ICD9: 272.4, ICD10: E78.5 - to be determined upon return of lab results - Continue current medication. - Encouraged following a low fat, low cholesterol diet. - Discussed the benefits of regular aerobic exercise and weight loss. - CBC - LIPID PANEL BASIC 7. Arthritis, multiple joint involvement - ICD9: 716.99, ICD10: M12.9 - stable 8. Coronary artery disease involving [place] heart, unspecified vessel or lesion type, unspecified whether angina present - ICD9: 414.01, ICD10: I25.10 - f/u with [facility], no new symptoms 9. Fatigue, unspecified type - ICD9: 780.79, ICD10: R53.83 - recheck labs, likely multifactorial and also with SE to her cardiac medications - TSH BLD Rishi Vasquez DO To ER if develops chest pain, shortness of breath, or severe worsening of symptoms. Discussed risks, benefits, alternatives, and potential side effects of medications. Patient expressed understanding and agreed with the plan. Rishi Vasquez DO [address] [place] [address] documented in this encounterMain [facility] Center07-06-2022 Miscellaneous Notes* Telephone Encounter - Yvonne Garcia - 05/24/2022 1:32 PM EDT LM on patient's VM to schedule consult for colonoscopy. First attempt. * Telephone Encounter - Garrick La - 05/24/2022 1:25 PM EDT Patient due for 5 year follow up colonoscopy. Patient is not appropriate for open access. Please schedule office consult Garrick La documented in this encounterMain [facility] Medical Center06-14-2022 Miscellaneous Notes* Telephone Encounter - Jessie Collins LPN - 05/02/2022 8:09 AM EDT Patient has been identified by name and date of : Yes Patient phones for refill(s): Pending Prescriptions Disp Refills LISINOPRIL 40 MG TABLET 90 tablet 1 Sig: Take 1 tablet by mouth once daily. TARAH: No Date of last office visit in primary care: 12/02/21 next apt 05/31/22 Last 2 Encounter Wt Readings: Date: Wt: 12/02/2021 75.3 kg (166 lb) 07/14/2021 75.8 kg (167 lb) Previous labs/tests for medication: Blood Pressure: BUN (mg/dL) Date Value 03/07/2022 42 11/28/2021 38 Sodium (mmol/L) Date Value 03/07/2022 142 11/28/2021 142 Last 1 Encounter BP Readings: Date: BP: 12/02/2021 160/70 Please advise. Thank you. Jessie Collins LPN documented in this encounterMain Campus Medical Center06-06-2022 Miscellaneous Notes* Telephone Encounter - Clary Johnson APRN.CNP - 04/24/2022 12:26 PM EDT PDMP website checked and validated. All prescriptions have been APPROPRIATELY filled. No suspiciousactivity was identified. 04/24/2022 by Clary Johnson APRN.CNP The following approved medication requests have been transmitted electronically. Signed Prescriptions Disp Refills gabapentin (NEURONTIN) 600 mg tablet 90 tablet 0 Sig: TAKE 1 TABLET BY MOUTH THREE TIMES DAILY TARAH: No Authorizing Provider: CLARY JOHNSON APRN.CNP * Telephone Encounter - Georgia Nicole LPN - 04/24/2022 8:23 AM EDT Patient phones requesting refills as follows: Pending Prescriptions Disp Refills GABAPENTIN 600 MG TABLET 90 tablet 0 Sig: TAKE 1 TABLET BY MOUTH THREE TIMES DAILY TARAH: Yes ROSALIE-12/02/21 Labs-03/07/22 NOV-05/31/22 med filled 03/23/22 ends 04/22/22 Please review and advise. Georgia Nicole LPN documented in this encounterMain Campus Medical Center05-05-2022 Miscellaneous Notes* Telephone Encounter - Dillon Watts APRN.CNP - 03/23/2022 9:39 AM EDT The following approved medication requests have been transmitted electronically. Signed Prescriptions Disp Refills gabapentin (NEURONTIN) 600 mg tablet 90 tablet 0 Sig: Take 1 tablet by mouth three times daily for 30 days. TARAH: No Authorizing Provider: DILLON WATTS APRN.CNP PDMP website checked and validated. All prescriptions have been APPROPRIATELY filled. No suspiciousactivity was identified. 03/23/2022 by Dillon Watts CNP. 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 The following approved medication requests have been transmitted electronically. Signed Prescriptions Disp Refills metFORMIN (GLUCOPHAGE) 500 mg tablet 60 tablet 3 Sig: Take 1 tablet by mouth twice daily with meals. TARAH: No Authorizing Provider: DILLON WATTS Ma * Telephone Encounter - Dillon Watts APRN.CNP - 02/24/2022 10:25 AM EDT Please have her increase her metformin to twice daily, with meals. The following approved medication requests have been transmitted electronically. Signed Prescriptions Disp Refills metFORMIN (GLUCOPHAGE) 500 mg tablet 60 tablet 3 Sig: Take 1 tablet by mouth twice daily with meals. TARAH: No Authorizing Provider: DILLON WATTS APRN.CNP * Telephone Encounter - Selma Sadners Ma - 02/24/2022 10:20 AM EDT Patient notified and verbalized understanding. Pt is willing to increase dosage of metformin but will not take more than 1,000mg total. Please advise Selma Sanders Ma * Telephone Encounter - Dillon Watts APRN.CNP - 02/24/2022 10:05 AM EDT Please let Gely know that we've received her lab results. Her A1C (3-month blood glucose average) has increased, from 7.0 to now 7.3. Please confirm that shedid increase her glimepride to 2mg, as Dr. Vasquez ordered at her appointment on 12/02/2021. I see that she is also taking metformin only once daily. Does she tolerate the metformin well, that she would tolerate increasing her metformin dose? Her kidney labs have increased just a bit from previous. Please have her make sure that she is drinking at least 64oz of water daily. I'd like to recheck her kidney labs again in 2 weeks. Otherwise, no other concerns. Dillon Watts APRN.MARK documented in this encounterMain Campus Medical Center12-27-2017 History of Past illness Narrative* Problem Noted Date Resolved Date Benign paroxysmal positional vertigo 11/14/2017 11/30/2021 Essential hypertension 11/30/2015 6 documented as of this encounter (statuses as of 03/22/2022) [facility] of [facility] illness Narrative* Problem Noted Date Resolved Date Benign paroxysmal positional vertigo 11/14/2017 11/30/2021 Essential hypertension 11/30/2015 6 documented as of this encounter (statuses as of 03/23/2022) [facility] of [facility] illness Narrative* Problem Noted Date Resolved Date Benign paroxysmal positional vertigo 11/14/2017 11/30/2021 Essential hypertension 11/30/2015 6 documented as of this encounter (statuses as of 04/24/2022) [facility] of [facility] illness Narrative* Problem Noted Date Resolved Date Benign paroxysmal positional vertigo 11/14/2017 11/30/2021 Essential hypertension 11/30/2015 6 documented as of this encounter (statuses as of 04/26/2022) [facility] of [facility] illness Narrative* Problem Noted Date Resolved Date Benign paroxysmal positional vertigo 11/14/2017 11/30/2021 Essential hypertension 11/30/2015 6 documented as of this encounter (statuses as of 05/02/2022) [facility] illness Narrative* Problem Noted Date Resolved Date Benign paroxysmal positional vertigo 11/14/2017 11/30/2021 Essential hypertension 11/30/2015 6 documented as of this encounter (statuses as of 05/24/2022) [place] [address]-27-2017 History of Past illness Narrative* Problem Noted Date Resolved Date Benign paroxysmal positional vertigo 11/14/2017 11/30/2021 Essential hypertension 11/30/2015 6 documented as of this encounter (statuses as of 05/31/2022) [facility] Narrative* Problem Noted Date Resolved Date Benign paroxysmal positional vertigo 11/14/2017 11/30/2021 Essential hypertension 11/30/2015 6 documented as of this encounter (statuses as of 06/06/2022) [facility]2017 History of Past illness Narrative* Problem Noted Date Resolved Date Benign paroxysmal positional vertigo 11/14/2017 11/30/2021 Essential hypertension 11/30/2015 6 documented as of this encounter (statuses as of 06/06/2022) [facility]2017 History of Past illness Narrative* Problem Noted Date Resolved Date Benign paroxysmal positional vertigo 11/14/2017 11/30/2021 Essential hypertension 11/30/2015 6 documented as of this encounter (statuses as of 06/07/2022) [facility]2017 History of Past illness Narrative* Problem Noted Date Resolved Date Benign paroxysmal positional vertigo 11/14/2017 11/30/2021 Essential hypertension 11/30/2015 6 documented as of this encounter (statuses as of 06/17/2022) [place] [id number] History of Past illness Narrative* Problem Noted Date Resolved Date Benign paroxysmal positional vertigo 11/14/2017 11/30/2021 Essential hypertension 11/30/2015 6 documented as of this encounter (statuses as of 08/15/2022) [facility] History of Past illness Narrative* Problem Noted Date Resolved Date Benign paroxysmal positional vertigo 11/14/2017 11/30/2021 Essential hypertension 11/30/2015 6 documented as of this encounter (statuses as of 09/07/2022) [place] [address]-27-2017 History of Past illness Narrative* Problem Noted Date Resolved Date Benign paroxysmal positional vertigo 11/14/2017 11/30/2021 Essential hypertension 11/30/2015 6 documented as of this encounter (statuses as of 09/09/2022) [place] [address]-27-2017 History of Past illness Narrative* Problem Noted Date Resolved Date Benign paroxysmal positional vertigo 11/14/2017 11/30/2021 Essential hypertension 11/30/2015 6 documented as of this encounter (statuses as of 09/23/2022) [facility] History of Past illness Narrative* Problem Noted Date Resolved Date Benign paroxysmal positional vertigo 11/14/2017 11/30/2021 Essential hypertension 11/30/2015 6 documented as of this encounter (statuses as of 12/05/2022) [facility] History of Past illness Narrative* Problem Noted Date Resolved Date Benign paroxysmal positional vertigo 11/14/2017 11/30/2021 Essential hypertension 11/30/2015 6 documented as of this encounter (statuses as of 12/07/2022) [facility] History of Past illness Narrative* Problem Noted Date Resolved Date Benign paroxysmal positional vertigo 11/14/2017 11/30/2021 Essential hypertension 11/30/2015 6 documented as of this encounter (statuses as of 01/04/2023) [place] [address]-27-2017 History of Past illness Narrative* Problem Noted Date Resolved Date Benign paroxysmal positional vertigo 11/14/2017 11/30/2021 Essential hypertension 11/30/2015 6 documented as of this encounter (statuses as of 01/05/2023) [facility] History of Past illness Narrative* Problem Noted Date Resolved Date Benign paroxysmal positional vertigo 11/14/2017 11/30/2021 Essential hypertension 11/30/2015 6 documented as of this encounter (statuses as of 01/09/2023) [facility] History of Past illness Narrative* Problem Noted Date Resolved Date Benign paroxysmal positional vertigo 11/14/2017 11/30/2021 Essential hypertension 11/30/2015 6 documented as of this encounter (statuses as of 02/07/2023) [facility] History of Past illness Narrative* Problem Noted Date Resolved Date Benign paroxysmal positional vertigo 11/14/2017 11/30/2021 Essential hypertension 11/30/2015 6 documented as of this encounter (statuses as of 03/02/2023) [place] [address]-27-2017 History of Past illness Narrative* Problem Noted Date Resolved Date Benign paroxysmal positional vertigo 11/14/2017 11/30/2021 Essential hypertension 11/30/2015 6 documented as of this encounter (statuses as of 03/12/2023) [facility] History of Past illness Narrative* Problem Noted Date Resolved Date Benign paroxysmal positional vertigo 11/14/2017 11/30/2021 Essential hypertension 11/30/2015 6 documented as of this encounter (statuses as of 03/12/2023) [facility] History of Past illness Narrative* Problem Noted Date Diagnosed Date Resolved Date Benign paroxysmal positional vertigo 11/14/2017 11/30/2021 Essential hypertension 11/30/201510/24 documented as of this encounter (statuses as of 05/28/2023) [facility] History of Past illness Narrative* Problem Noted Date Diagnosed Date Resolved Date Benign paroxysmal positional vertigo 11/14/2017 11/30/2021 Essential hypertension 11/30/201510/24 documented as of this encounter (statuses as of 05/30/2023) [facility] History of Past illness Narrative* Problem Noted Date Diagnosed Date Resolved Date Benign paroxysmal positional vertigo 11/14/2017 11/30/2021 Essential hypertension 11/30/201510/24 documented as of this encounter (statuses as of 05/31/2023) [facility] History of Past illness Narrative* Problem Noted Date Diagnosed Date Resolved Date Benign paroxysmal positional vertigo 11/14/2017 11/30/2021 Essential hypertension 11/30/201510/24 documented as of this encounter (statuses as of 06/05/2023) [facility] History of Past illness Narrative* Problem Noted Date Diagnosed Date Resolved Date Benign paroxysmal positional vertigo 11/14/2017 11/30/2021 Essential hypertension 11/30/201510/24 documented as of this encounter (statuses as of 07/10/2023) [facility] History of Past illness Narrative* Problem Noted Date Diagnosed Date Resolved Date Benign paroxysmal positional vertigo 11/14/2017 11/30/2021 Essential hypertension 11/30/201510/24 documented as of this encounter (statuses as of 08/01/2023) [facility] History of Past illness Narrative* Problem Noted Date Diagnosed Date Resolved Date Benign paroxysmal positional vertigo 11/14/2017 11/30/2021 Essential hypertension 11/30/201510/24 documented as of this encounter (statuses as of 08/28/2023) [facility] History of Past illness Narrative* Problem Noted Date Diagnosed Date Resolved Date Benign paroxysmal positional vertigo 11/14/2017 11/30/2021 Essential hypertension 11/30/201510/24 documented as of this encounter (statuses as of 08/31/2023) [facility] History of Past illness Narrative* Problem Noted Date Diagnosed Date Resolved Date Benign paroxysmal positional vertigo 11/14/2017 11/30/2021 Essential hypertension 11/30/201510/24 documented as of this encounter (statuses as of 09/23/2023) [facility] History of Past illness Narrative* Problem Noted Date Diagnosed Date Resolved Date Benign paroxysmal positional vertigo 11/14/2017 11/30/2021 Essential hypertension 11/30/201510/24 documented as of this encounter (statuses as of 09/23/2023) [address]27-2017 History of Past illness Narrative* Problem Noted Date Diagnosed Date Resolved Date Benign paroxysmal positional vertigo 11/14/2017 11/30/2021 Essential hypertension 11/30/201510/24 documented as of this encounter (statuses as of 09/23/2023) [address]27-2017 History of Past illness Narrative* Problem Noted Date Diagnosed Date Resolved Date Benign paroxysmal positional vertigo 11/14/2017 11/30/2021 Essential hypertension 11/30/201510/24 documented as of this encounter (statuses as of 09/23/2023) [address]27-2017 History of Past illness Narrative* Problem Noted Date Diagnosed Date Resolved Date Benign paroxysmal positional vertigo 11/14/2017 11/30/2021 Essential hypertension 11/30/201510/24 documented as of this encounter (statuses as of 09/23/2023) [address]27-2017 History of Past illness Narrative* Problem Noted Date Diagnosed Date Resolved Date Benign paroxysmal positional vertigo 11/14/2017 11/30/2021 Essential hypertension 11/30/201510/24 documented as of this encounter (statuses as of 10/04/2023) [address]27-2017 History of Past illness Narrative* Problem Noted Date Diagnosed Date Resolved Date Benign paroxysmal positional vertigo 11/14/2017 11/30/2021 Essential hypertension 11/30/201510/24 documented as of this encounter (statuses as of 12/21/2023) [address]27-2017 History of Past illness Narrative* Problem Noted Date Diagnosed Date Resolved Date Benign paroxysmal positional vertigo 11/14/2017 11/30/2021 Essential hypertension 11/30/201510/24 documented as of this encounter (statuses as of 12/27/2023) [address]27-2017 History of Past illness Narrative* Problem Noted Date Diagnosed Date Resolved Date Benign paroxysmal positional vertigo 11/14/2017 11/30/2021 Essential hypertension 11/30/201510/24 documented as of this encounter (statuses as of 01/16/2024) [facility] History of Past illness Narrative* Problem Noted Date Diagnosed Date Resolved Date Benign paroxysmal positional vertigo 11/14/2017 11/30/2021 Essential hypertension 11/30/201510/24 documented as of this encounter (statuses as of 01/23/2024) [place] [address]-27-2017 History of Past illness Narrative* Problem Noted Date Diagnosed Date Resolved Date Benign paroxysmal positional vertigo 11/14/2017 11/30/2021 Essential hypertension 11/30/201510/24 documented as of this encounter (statuses as of 01/28/2024) [place] [address]-27-2017 History of Past illness Narrative* Problem Noted Date Diagnosed Date Resolved Date Benign paroxysmal positional vertigo 11/14/2017 11/30/2021 Essential hypertension 11/30/201510/24 documented as of this encounter (statuses as of 01/30/2024) [facility] History of Past illness Narrative* Problem Noted Date Diagnosed Date Resolved Date Benign paroxysmal positional vertigo 11/14/2017 11/30/2021 Essential hypertension 11/30/201510/24 documented as of this encounter (statuses as of 02/05/2024) [place] [address]-27-2017 History of Past illness Narrative* Problem Noted Date Diagnosed Date Resolved Date Benign paroxysmal positional vertigo 11/14/2017 11/30/2021 Essential hypertension 11/30/201510/24 documented as of this encounter (statuses as of 02/07/2024) [place] [address]-27-2017 History of Past illness Narrative* Problem Noted Date Diagnosed Date Resolved Date Benign paroxysmal positional vertigo 11/14/2017 11/30/2021 Essential hypertension 11/30/201510/24 documented as of this encounter (statuses as of 02/22/2024) [facility] History of Past illness Narrative* Problem Noted Date Diagnosed Date Resolved Date Benign paroxysmal positional vertigo 11/14/2017 11/30/2021 Essential hypertension 11/30/201510/24 documented as of this encounter (statuses as of 03/06/2024) [facility] History of Past illness Narrative* Problem Noted Date Diagnosed Date Resolved Date Benign paroxysmal positional vertigo 11/14/2017 11/30/2021 Essential hypertension 11/30/201510/24 documented as of this encounter (statuses as of 03/07/2024) [facility] Diagnosis Onset Date Resolution Status Personal history of colonic polyps acute Carotid artery stenosis acut e Essential hypertension acute Atherosclerosis of coronary artery of [place] without angina pectoris chronic Hyperlipidemia chronic Peripheral vascular occlusive disease [facility] Work Phone: evaluation note* Diagnosis Essential hypertension Unspecified essential hypertension documented in this encounter [facility] note* Diagnosis Peripheral vascular occlusive disease (HCC)- Primary Peripheral vascular disease, unspecified documented in this encounter [facility] note* Diagnosis Peripheral vascular occlusive disease (HCC) Peripheral vascular disease, unspecified [facility]* Diagnosis Essential hypertension Unspecified essential hypertension [facility]* Diagnosis 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)- Primary Type II or unspecified type diabetes mellitus with peripheral circulatory disorders, not stated as uncontrolled Peripheral vascular occlusive disease (HCC) Peripheral vascular disease, unspecified Vitamin D deficiency Unspecified vitamin D deficiency Stage 3 chronic kidney disease, unspecified whether stage 3a or 3b CKD (HCC) Essential hypertension Unspecified essential hypertension Dyslipidemia (high LDL; low HDL) Other and unspecified hyperlipidemia Arthritis, multiple joint involvement Unspecified arthropathy, multiple sites Coronary artery disease involving [place], unspecified vessel or lesion type, unspecified whether angina present Fatigue, unspecified type [facility]* Diagnosis Encounter for screening mammogram for malignant neoplasm of breast Other screening mammogram documented in this encounter [facility] note* Diagnosis Abnormal mammogram- Primary Abnormal mammogram, unspecified [facility]* Diagnosis Acute pain of right shoulder- Primary documented [facility] noteNo assessment information availableWMetro[facility]* Diagnosis Onset Date Resolution Status Carotid artery stenosis acut e [facility] Work Phone: evaluation note* Diagnosis Injury of sternum, initial encounter- Primary Wrist injury, right, initial encounter [facility] Diagnosis Onset Date Resolution Status Carotid artery stenosis [employer] Atherosclerosis of coronary artery of [place] without angina pectoris chronic Carotid artery stenosis [employer] Essential hypertension chron ic Hyperlipidemia chronic Peripheral vascular occlusive disease [facility] Work Phone: Evaluation note* Diagnosis Low TSH level- Primary Nonspecific abnormal results of thyroid function study Abnormal thyroid biopsy Abnormal thyroid blood test Nonspecific abnormal results of thyroid function study Borderline abnormal thyroid function test Nonspecific abnormal results of thyroid function study [facility] Acute cystitis with hematuria- Primary Acute cystitis [facility] Onset Date Resolution Status Atherosclerosis of coronary artery of [place] without angina pectoris chronic Carotid artery stenosis [employer] Essential hypertension chron ic Hyperlipidemia chronic Peripheral vascular occlusive disease [facility] Work Phone: Evaluation note* Diagnosis 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)- Primary Type II or unspecified type diabetes mellitus with peripheral circulatory disorders, not stated as uncontrolled Peripheral vascular occlusive disease (HCC) Peripheral vascular disease, unspecified Dyslipidemia (high LDL; low HDL) Other and unspecified hyperlipidemia Essential hypertension Unspecified essential hypertension Dizziness Dizziness and giddiness Carotid atherosclerosis, bilateral Biceps rupture, proximal, left, initial encounter Chronic kidney disease, stage 3a (HCC) [facility] Diabetes mellitus type 2 with peripheral artery disease Type II or unspecified type diabetes mellitus with peripheral circulatory disorders, not stated as uncontrolled [facility] Encounter for screening mammogram for malignant neoplasm of breast- Primary Other screening mammogram [facility] Diagnosis 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) Type II or unspecified type diabetes mellitus with peripheral circulatory disorders, not stated as uncontrolled [facility] Peripheral vascular occlusive disease (HCC) Peripheral vascular disease, unspecified [facility] Abnormal mammogram- Primary Abnormal mammogram, unspecified [facility] Diagnosis Dysuria- Primary Acute cystitis with hematuria Acute cystitis Peripheral vascular occlusive disease (HCC) Peripheral vascular disease, unspecified 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) Type II or unspecified type diabetes mellitus with peripheral circulatory disorders, not stated as uncontrolled CKD stage G3b/A1, GFR 30-44 and albumin creatinine ratio <30 mg/g (HCC) Dyslipidemia (high LDL; low HDL) Other and unspecified hyperlipidemia Vitamin D deficiency Unspecified vitamin D deficiency Multinodular thyroid Nontoxic multinodular goiter Essential hypertension Unspecified essential hypertension Arthritis, multiple joint involvement Unspecified arthropathy, multiple sites [facility] Diagnosis Onset Date Resolution Status Atherosclerosis of coronary artery of [place] without angina pectoris chronic Carotid artery stenosis [employer] Essential hypertension chron ic Hyperlipidemia chronic Peripheral vascular occlusive disease chronic Carotid artery stenosis [employer] Peripheral vascular occlusive disease [facility] Work Phone: Evaluation note* Diagnosis Onset Date Resolution Status Carotid artery stenosis [employer] Peripheral vascular occlusive disease [facility] Work Phone: Evaluation note* Diagnosis Encounter for screening mammogram for malignant neoplasm of breast Other screening mammogram [facility] Diagnosis Abnormal mammogram Abnormal mammogram, unspecified [facility]* Diagnosis Abnormal mammogram Abnormal mammogram, unspecified [facility]* Diagnosis Abnormal thyroid function test Nonspecific abnormal results of thyroid function study [facility] Diagnosis Peripheral vascular occlusive disease (HCC) Peripheral vascular disease, unspecified [facility] Diagnosis Multiple thyroid nodules Nontoxic multinodular goiter [facility] Diagnosis Chronic midline low back pain without sciatica [facility] Diagnosis Chronic bilateral low back pain with bilateral sciatica- Primary [facility] Diagnosis Peripheral vascular occlusive disease (HCC) Peripheral vascular disease, unspecified [facility] Diagnosis Chronic bilateral low back pain with bilateral sciatica- Primary [facility] Diagnosis Onset Date Resolution Status Systolic murmur acute Atherosclerosis of coronary artery of [place] without angina pectoris chronic Essential hypertension chron ic Hyperlipidemia [facility] Work Phone: Evaluation note* Diagnosis Chronic midline low back pain without sciatica- Primary [facility] Diagnosis Multiple thyroid nodules- Primary Nontoxic multinodular goiter [facility] Diagnosis Chronic bilateral low back pain with bilateral sciatica- Primary [facility] Diagnosis Chronic bilateral low back pain with bilateral sciatica- Primary [facility]* Diagnosis Multiple thyroid nodules- Primary Nontoxic multinodular goiter Essential hypertension Unspecified essential hypertension 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) Type II or unspecified type diabetes mellitus with peripheral circulatory disorders, not stated as uncontrolled CKD stage G3b/A1, GFR 30-44 and albumin creatinine ratio <30 mg/g (HCC) Vitamin D deficiency Unspecified vitamin D deficiency Dyslipidemia (high LDL; low HDL) Other and unspecified hyperlipidemia Low TSH level Nonspecific abnormal results of thyroid function study Fatigue, unspecified type documented in this encounter [facility] note* Diagnosis Encounter for screening mammogram for malignant neoplasm of breast Other screening mammogram documented in this encounter [facility] note* Diagnosis Chronic midline low back pain without sciatica- Primary Peripheral vascular occlusive disease (HCC) Peripheral vascular disease, unspecified 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) Type II or unspecified type diabetes mellitus with peripheral circulatory disorders, not stated as uncontrolled DDD (degenerative disc disease), lumbar Degeneration of lumbar or lumbosacral intervertebral disc Essential hypertension Unspecified essential hypertension Stage 3 chronic kidney disease, unspecified whether stage 3a or 3b CKD (HCC) 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) Dyslipidemia (high LDL; low HDL) Other and unspecified hyperlipidemia Vitamin D deficiency Unspecified vitamin D deficiency Multiple thyroid nodules Nontoxic multinodular goiter [facility] Diagnosis Chronic midline low back pain without sciatica [facility]* Diagnosis Injury of sternum, initial encounter Wrist injury, right, initial encounter [facility]* Diagnosis Acute pain of right shoulder [facility]* Diagnosis 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)- Primary Type II or unspecified type diabetes mellitus with peripheral circulatory disorders, not stated as uncontrolled Dyslipidemia (high LDL; low HDL) Other and unspecified hyperlipidemia Encounter for screening mammogram for malignant neoplasm of breast Other screening mammogram Stage 3 chronic kidney disease, unspecified whether stage 3a or 3b CKD (HCC) Chronic midline low back pain without sciatica Degeneration of intervertebral disc of lumbar region with discogenic back pain and lower extremity pain Essential hypertension Unspecified essential hypertension Vitamin D deficiency Unspecified vitamin D deficiency Multiple thyroid nodules Nontoxic multinodular goiter Arthritis, multiple joint involvement Unspecified arthropathy, multiple sites documented in this encounter [facility] Diagnosis Essential hypertension Unspecified essential hypertension documented in this encounter [facility] note* Diagnosis Hospital discharge follow-up- Primary Other follow-up examination Diabetic foot ulcer associated with type 2 diabetes mellitus, unspecified laterality, unspecified part of foot, unspecified ulcer stage (HCC) Abnormality of gait Falling episodes Lack of coordination documented in this encounter [facility] note* Diagnosis 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)- Primary Type II or unspecified type diabetes mellitus with peripheral circulatory disorders, not stated as uncontrolled Hyperglycemia Other abnormal glucose documented in this encounter [facility] for referral (narrative)* Diagnostic Procedure Only (Routine) - Closed Specialty Diagnoses / Procedures Referred By Viraj t Referred To Contact BR IMAGING Diagnoses Encounter for screening mammogram for malignant neoplasm of breast Procedures ALEJANDRO SCREENING SCREENING MAMMOGRAPHY BI 2-VIEW BREAST INC CAD Rishi Vasquez DO [address] [place] [address] Br Imaging [address] [place] [address] Referral ID Status Reason Start Date Expiration Date V isits Requested Visits Authorized [id number] Closed Auto-Generate d Referral 12/05/2021 01/04/2023 1 1 [facility] for referral (narrative)* Diagnostic Procedure Only (Routine) - Authorized Specialty Diagnoses / Procedures Referred By Contac t Referred To Contact BR IMAGING Diagnoses Abnormal mammogram Procedures US BREAST LTD RT US BREAST UNI REAL TIME WITH IMAGE LIMITED Dillon Watts APRN.SHOEMAKING FINISHER [address] [place] [address] Br Imaging [address] [place] [address] Referral ID Status Reason Start Date Expiration Date Visits Requested Visits Authorized [id number] Authorized Auto-Generat ed Referral 06/05/2022 07/05/2023 1 1 * Diagnostic Procedure Only (Routine) - Authorized Specialty Diagnoses / Procedures Referred By Contac t Referred To Contact BR IMAGING Diagnoses Abnormal mammogram Procedures ALEJANDRO DIAGNOSTIC RT DIAGNOSTIC MAMMOGRAPHY COMPUTER-AIDED DETCJ [facility] Dillon Watts APRN.SHOEMAKING FINISHER [address] [place] [address] Br Imaging [address] [place] [address] Referral ID Status Reason Start Date Expiration Date Visits Requested Visits Authorized [id number] Authorized Auto-Generat ed Referral 06/05/2022 07/05/2023 1 1 [facility] for referral (narrative)* Diagnostic Procedure Only (Urgent) - Closed Specialty Diagnoses / Procedures Referred By Contac t Referred To Contact XR IMAGING Diagnoses Acute pain of right shoulder Procedures XR SHOULDER GENERAL 3V OR MORE AP/TRUE AP/OTHER RIGHT RADEX SHOULDER COMPLETE MINIMUM 2 VIEWS Kena Sims APRN.SHOEMAKING FINISHER [address] [place] [address] Xr Imaging Referral ID Status Reason Start Date Expiration Date V isits Requested Visits Authorized [id number] Closed Auto-Generate d Referral 06/17/2022 07/17/2023 1 1 [facility] for referral (narrative)* Diagnostic Procedure Only (Urgent) - Closed Specialty Diagnoses / Procedures Referred By Contac t Referred To Contact XR IMAGING Diagnoses Wrist injury, right, initial encounter Procedures XR WRIST INJURY 4V PA/LAT/OBL/SCAPH RIGHT RADEX WRIST COMPLETE MINIMUM 3 VIEWS Camille Mitchell PA-C [address] [place] [address] Xr Imaging Referral ID Status Reason Start Date Expiration Date V isits Requested Visits Authorized [id number] Closed Auto-Generate d Referral 08/15/2022 09/14/2023 1 1 * Diagnostic Procedure Only (Urgent) - Closed Specialty Diagnoses / Procedures Referred By Leeannaac t Referred To Contact XR IMAGING Diagnoses Injury of sternum, initial encounter Procedures XR STERNUM 2V BARAJAS/LAT RADEX STERNUM MINIMUM 2 VIEWS Camille Mitchell PA-C [address] [place] [address] Xr Imaging Referral ID Status Reason Start Date Expiration Date V isits Requested Visits Authorized [id number] Closed Auto-Generate d Referral 08/15/2022 09/14/2023 1 1 [facility] for referral (narrative)* Outpatient Procedure (Routine) - Authorized Specialty Diagnoses / Procedures Referred By Viraj t Referred To Contact HEART [facility] VASCULAR [place] Diagnoses Carotid atherosclerosis, bilateral Procedures US CAROTID ARTERIES SADIE VAS LAB DUPLEX SCAN EXTRACRANIAL ART COMPL BI STUDY Rishi Vasquez DO [address] [place] [address] [facility] [address] [place] [address] Referral ID Status Reason Start Date Expiration Date Visits Requested Visits Authorized [id number] Authorized Auto-Generat ed Referral 12/05/2022 12/05/2023 1 1 [facility] for referral (narrative)* Diagnostic Procedure Only (Routine) - Pending Review Specialty Diagnoses / Procedures Referred By Contac t Referred To Contact BR IMAGING Diagnoses Encounter for screening mammogram for malignant neoplasm of breast Procedures ALEJANDRO SCREENING SCREENING MAMMOGRAPHY BI 2-VIEW BREAST INC CAD Clary Andres, PROGRAMS DIRECTOR.SHOEMAKING FINISHER [address] [place] [address] Br Imaging [address] [place] [address] Referral ID Status Reason Start Date Expiration Date Visits Requested Visits Authorized [id number] Pending Review Auto-Generat ed Referral 02/07/2023 03/06/2024 1 1 [facility] for referral (narrative)* Diagnostic Procedure Only (Routine) - Authorized Specialty Diagnoses / Procedures Referred By Contac t Referred To Contact BR IMAGING Diagnoses Abnormal mammogram Procedures US BREAST LTD RIGHT US BREAST UNI REAL TIME WITH IMAGE LIMITED Danyelle Tripp PA-C [address] [place] [address] Br Imaging [address] [place] [address] Referral ID Status Reason Start Date Expiration Date Visits Requested Visits Authorized [id number] Authorized Auto-Generat ed Referral 05/29/2023 06/27/2024 1 1 * Diagnostic Procedure Only (Routine) - Authorized Specialty Diagnoses / Procedures Referred By Vriaj banegas Referred To Contact BR IMAGING Diagnoses Abnormal mammogram Procedures ALEJANDRO DIAGNOSTIC RIGHT DIAGNOSTIC MAMMOGRAPHY COMPUTER-AIDED DETCJ UNI Danyelle Tripp PA-C [address] [place] [address] Br Imaging [address] [place] [address] Referral ID Status Reason Start Date Expiration Date Visits Requested Visits Authorized [id number] Authorized Auto-Generat ed Referral 05/29/2023 06/27/2024 1 1 [facility] for referral (narrative)* Diagnostic Procedure Only (Routine) - Closed Specialty Diagnoses / Procedures Referred By Contac t Referred To Contact BR IMAGING Diagnoses Encounter for screening mammogram for malignant neoplasm of breast Procedures ALEJANDRO SCREENING SCREENING MAMMOGRAPHY BI 2-VIEW BREAST INC Clary Huerta APRN.CNP [address] [place] [address] Br Imaging [address] [place] [address] Referral ID Status Reason Start Date Expiration Date V isits Requested Visits Authorized [id number] Closed Auto-Generate d Referral 02/07/2023 03/06/2024 1 1 [facility] for referral (narrative)* Diagnostic Procedure Only (Routine) - Closed Specialty Diagnoses / Procedures Referred By Contac t Referred To Contact BR IMAGING Diagnoses Abnormal mammogram Procedures US BREAST LTD RIGHT US BREAST UNI REAL TIME WITH IMAGE LIMITED Danyelle Tripp PA-C [address] [place] [address] Br Imaging [address] [place] [address] Referral ID Status Reason Start Date Expiration Date V isits Requested Visits Authorized [id number] Closed Auto-Generate d Referral 05/29/2023 06/27/2024 1 1 T [facility] for referral (narrative)* Diagnostic Procedure Only (Routine) - Closed Specialty Diagnoses / Procedures Referred By Contac t Referred To Contact MOLECULAR & FUNCTIONAL IMAGING Diagnoses Abnormal thyroid function test Procedures NM THY UPTAKE AND SCAN THYROID UPTAKE W/BLOOD FLOW SNGLE/MULT JAMARI Rishi Arnold DO [address] [place] [address] Molecular & Functional Imaging [address] [place] [address] Referral ID Status Reason Start Date Expiration Date V isits Requested Visits Authorized [id number] Closed Auto-Generate d Referral 12/15/2022 01/14/2024 1 1 [facility] for referral (narrative)* Diagnostic Procedure Only (Routine) - Closed Specialty Diagnoses / Procedures Referred By Contac t Referred To Contact US IMAGING Diagnoses Abnormal thyroid function test Procedures US THYROID/PARATHYROID US SOFT TISSUE HEAD & NECK REAL TIME IMGE Rishi Menon DO [address] [place] [address] [place] [address] Referral ID Status Reason Start Date Expiration Date V isits Requested Visits Authorized [id number] Closed Auto-Generate d Referral 12/15/2022 01/14/2024 1 1 [facility] for referral (narrative)* Diagnostic Procedure Only (Routine) - Closed Specialty Diagnoses / Procedures Referred By Contac t Referred To Contact XR IMAGING Diagnoses Chronic midline low back pain without sciatica Procedures XR LUMBAR GENERAL 3V AP/LAT/L5-S1 RADEX SPINE LUMBOSACRAL 2/3 VIEWS Rishi Vasquez DO [address] [place] [address] [place] [address] Referral ID Status Reason Start Date Expiration Date V isits Requested Visits Authorized [id number] Closed Auto-Generate d Referral 12/05/2023 01/03/2025 1 1 [facility] for referral (narrative)* Diagnostic Procedure Only (Urgent) - Closed Specialty Diagnoses / Procedures Referred By Contac t Referred To Contact XR IMAGING Diagnoses Wrist injury, right, initial encounter Procedures XR WRIST INJURY 4V PA/LAT/OBL/SCAPH RIGHT RADEX WRIST COMPLETE MINIMUM 3 VIEWS Camille Mitchell PA-C [address] [place] [address] [place] [address] Referral ID Status Reason Start Date Expiration Date V isits Requested Visits Authorized [id number] Closed Auto-Generate d Referral 08/15/2022 09/14/2023 1 1 * Diagnostic Procedure Only (Urgent) - Closed Specialty Diagnoses / Procedures Referred By Contac t Referred To Contact XR IMAGING Diagnoses Injury of sternum, initial encounter Procedures XR STERNUM 2V BARAJAS/LAT RADEX STERNUM MINIMUM 2 VIEWS Camille Mitchell PA-C [address] [place] [address] [place] [address] Referral ID Status Reason Start Date Expiration Date V isits Requested Visits Authorized [id number] Closed Auto-Generate d Referral 08/15/2022 09/14/2023 1 1 [facility] for referral (narrative)* Diagnostic Procedure Only (Urgent) - Closed Specialty Diagnoses / Procedures Referred By Viraj banegas Referred To Contact XR IMAGING Diagnoses Acute pain of right shoulder Procedures XR SHOULDER GENERAL 3V OR MORE AP/TRUE AP/OTHER RIGHT RADEX SHOULDER COMPLETE MINIMUM 2 VIEWS Kena Schrader APRN.CNP [address] [place] [address] [place] [address] Referral ID Status Reason Start Date Expiration Date V isits Requested Visits Authorized [id number] Closed Auto-Generate d Referral 06/17/2022 07/17/2023 1 1 [facility] for referral (narrative)* Diagnostic Procedure Only (Routine) - Authorized Specialty Diagnoses / Procedures Referred By Viraj banegas Referred To Contact BR IMAGING Diagnoses Encounter for screening mammogram for malignant neoplasm of breast Procedures ALEJANDRO SCREENING W BEN SCREENING DIGITAL BREAST TOMOSYNTHESIS BI SCREENING MAMMOGRAPHY BI 2-VIEW BREAST INC CAD Rishi Vasquez DO [address] [place] [address] Br Imaging [address] [facility] [place] [address] Referral ID Status Reason Start Date Expiration Date Visits Requested Visits Authorized [id number] Authorized Auto-Generat ed Referral 12/05/2024 01/04/2026 1 1 [facility] for referral (narrative)No reason for referral information [facility] Work Phone: Revptf for visit Narrative* Diagnostic Procedure Only (Routine) - Closed Specialty Diagnoses / Procedures Referred By Viraj banegas Referred To Contact BR IMAGING Diagnoses Encounter for screening mammogram for malignant neoplasm of breast Procedures ALEJANDRO SCREENING SCREENING MAMMOGRAPHY BI 2-VIEW BREAST INC CAD Rishi Vasquez DO [address] [place] [address] Br Imaging [address] [place] [address] Referral ID Status Reason Start Date Expiration Date V isits Requested Visits Authorized [id number] Closed Auto-Generate d Referral 12/05/2021 01/04/2023 1 1 [facility] for visit Narrative* Diagnostic Procedure Only (Routine) - Closed Specialty Diagnoses / Procedures Referred By Contac t Referred To Contact BR IMAGING Diagnoses Encounter for screening mammogram for malignant neoplasm of breast Procedures ALEJANDRO SCREENING SCREENING MAMMOGRAPHY BI 2-VIEW BREAST INC CAD Clary Andres, PROGRAMS DIRECTOR.SHOEMAKING FINISHER [address] [place] [address] Br Imaging [address] [place] [address] Referral ID Status Reason Start Date Expiration Date V isits Requested Visits Authorized [id number] Closed Auto-Generate d Referral 02/07/2023 03/06/2024 1 1 [facility] for visit Narrative* Diagnostic Procedure Only (Routine) - Closed Specialty Diagnoses / Procedures Referred By Contac t Referred To Contact BR IMAGING Diagnoses Abnormal mammogram Procedures ALEJANDRO DIAGNOSTIC RIGHT DIAGNOSTIC MAMMOGRAPHY COMPUTER-AIDED DETCJ UNI Danyelle Tripp PA-C [address] [place] [address] Br Imaging [address] [place] [address] Referral ID Status Reason Start Date Expiration Date V isits Requested Visits Authorized [id number] Closed Auto-Generate d Referral 05/29/2023 06/27/2024 1 1 [facility] for visit Narrative* Diagnostic Procedure Only (Routine) - Closed Specialty Diagnoses / Procedures Referred By Contac t Referred To Contact MOLECULAR & FUNCTIONAL IMAGING Diagnoses Abnormal thyroid function test Procedures NM THY UPTAKE AND SCAN THYROID UPTAKE W/BLOOD FLOW SNGLE/MULT JAMARI NATALIA Rishi Vasquez L, DO [address] [place] [address] Molecular & Functional Imaging [address] [place] [address] Referral ID Status Reason Start Date Expiration Date V isits Requested Visits Authorized [id number] Closed Auto-Generate d Referral 12/15/2022 01/14/2024 1 1 [facility] for visit Narrative* Diagnostic Procedure Only (Routine) - Closed Specialty Diagnoses / Procedures Referred By Contac t Referred To Contact BR IMAGING Diagnoses Encounter for screening mammogram for malignant neoplasm of breast Procedures ALEJANDRO SCREENING W BEN SCREENING DIGITAL BREAST TOMOSYNTHESIS BI SCREENING MAMMOGRAPHY BI 2-VIEW BREAST INC CAD Rishi Vasquez L, DO [address] [place] [address] Br Imaging [address] [place] [address] Referral ID Status Reason Start Date Expiration Date V isits Requested Visits Authorized [id number] Closed Auto-Generate d Referral 12/05/2023 01/03/2025 1 1 [facility] for visit Narrative* Diagnostic Procedure Only (Routine) - Closed Specialty Diagnoses / Procedures Referred By Leeannaac t Referred To Contact XR IMAGING Diagnoses Chronic midline low back pain without sciatica Procedures XR LUMBAR GENERAL 3V AP/LAT/L5-S1 RADEX SPINE LUMBOSACRAL 2/3 VIEWS Rishi Vasquez L, DO [address] [place] [address] [place] [address] Referral ID Status Reason Start Date Expiration Date V isits Requested Visits Authorized [id number] Closed Auto-Generate d Referral 12/05/2023 01/03/2025 1 1 [facility] for visit Narrative* Diagnostic Procedure Only (Urgent) - Closed Specialty Diagnoses / Procedures Referred By Contac t Referred To Contact XR IMAGING Diagnoses Wrist injury, right, initial encounter Procedures XR WRIST INJURY 4V PA/LAT/OBL/SCAPH RIGHT RADEX WRIST COMPLETE MINIMUM 3 VIEWS Camille Mitchell, PA-C [address] [place] [address] [place] [address] Referral ID Status Reason Start Date Expiration Date V isits Requested Visits Authorized [id number] Closed Auto-Generate d Referral 08/15/2022 09/14/2023 1 1 [facility] for visit Narrative* Diagnostic Procedure Only (Urgent) - Closed Specialty Diagnoses / Procedures Referred By Contac t Referred To Contact XR IMAGING Diagnoses Acute pain of right shoulder Procedures XR SHOULDER GENERAL 3V OR MORE AP/TRUE AP/OTHER RIGHT RADEX SHOULDER COMPLETE MINIMUM 2 VIEWS Kena Schrader M, PROGRAMS DIRECTOR.SHOEMAKING FINISHER [address] [place] [address] [place] [address] Referral ID Status Reason Start Date Expiration Date V isits Requested Visits Authorized [id number] Closed Auto-Generate d Referral 06/17/2022 07/17/2023 1 1 [facility] Chief Complaint and Reason for Visit Chief Complaint 2020 CARDIAC REHAB P HASE III MAINTENANCE-SELF PAY PHASE III MAINTENANCE SELF-PAY COLONOSCOPY PHASE III MAINTENANCE SELF-PAY 6 M FU / R/S FROM 2-7 MMM PHASE III MAINTENANCE SELF-PAY Reason for Visit Personal history of colonic polyps Carotid artery stenosis Essential hypertension Atherosclerosis of coronary artery of [place] without angina pectoris Hyperlipidemia Peripheral vascular occlusive disease Chief Complaint PHASE III MA INTENANCE SELF-PAY COLONOSCOPY PHASE III MAINTENANCE SELF-PAY 6 M FU / R/S FROM 2-7 MMM PHASE III MAINTENANCE SELF-PAY PHASE III MAINTENANCE SELF-PAY Reason for Visit Personal history of colonic polyps Carotid artery stenosis Essential hypertension Atherosclerosis of coronary artery of [place] without angina pectoris Hyperlipidemia Peripheral vascular occlusive disease Chief Complaint COLONOSCOPY PHASE III MAINTENANCE SELF-PAY 6 M FU / R/S FROM 2-7 MMM PHASE III MAINTENANCE SELF-PAY PHASE III MAINTENANCE SELF-PAY PHASE III MAINTENANCE SELF-PAY Reason for Visit Personal history of colonic polyps Carotid artery stenosis Essential hypertension Atherosclerosis of coronary artery of [place] without angina pectoris Hyperlipidemia Peripheral vascular occlusive disease Chief Complaint PHASE III MA INTENANCE SELF-PAY PHASE III MAINTENANCE SELF-PAY PHASE III MAINTENANCE SELF-PAY PHASE III MAINTENANCE SELF-PAY Chief Complaint PHASE III MA INTENANCE SELF-PAY PHASE III MAINTENANCE SELF-PAY PHASE III MAINTENANCE SELF-PAY CAROTID STENOSIS BILAT CAROTID U/S 06/22 PHASE III MAINTENANCE SELF-PAY Reason for Visit Carotid artery steno sis Chief Complaint PHASE III MA INTENANCE SELF-PAY 2022-CR PHASE III MAINTENANCE SELF-PAY CAROTID STENOSIS BILAT CAROTID U/S 06/22 PHASE III MAINTENANCE SELF-PAY 6 M FU PHASE III MAINTENANCE SELF-PAY Reason for Visit Carotid artery steno sis Atherosclerosis of coronary artery of [place] without angina pectoris Carotid artery stenosis Essential hypertension Hyperlipidemia Peripheral vascular occlusive disease Chief Complaint PHASE III MA INTENANCE SELF-PAY CAROTID STENOSIS BILAT CAROTID U/S 06/22 PHASE III MAINTENANCE SELF-PAY 6 M FU PHASE III MAINTENANCE SELF-PAY PHASE III MAINTENANCE SELF-PAY Reason for Visit Carotid artery steno sis Atherosclerosis of coronary artery of [place] without angina pectoris Carotid artery stenosis Essential hypertension Hyperlipidemia Peripheral vascular occlusive disease Chief Complaint CAROTID STENOSIS SADIE AT CAROTID U/S 06/22 PHASE III MAINTENANCE SELF-PAY 6 M FU PHASE III MAINTENANCE SELF-PAY PHASE III MAINTENANCE SELF-PAY PHASE III MAINTENANCE SELF-PAY Reason for Visit Carotid artery steno sis Atherosclerosis of coronary artery of [place] without angina pectoris Carotid artery stenosis Essential hypertension Hyperlipidemia Peripheral vascular occlusive disease Chief Complaint PHASE III MA INTENANCE SELF-PAY 6 M FU PHASE III MAINTENANCE SELF-PAY PHASE III MAINTENANCE SELF-PAY PHASE III MAINTENANCE SELF-PAY PVD PHASE III MAINTENANCE SELF-PAY Reason for Visit Atherosclerosis of c oronary artery of [place] without angina pectoris Carotid artery stenosis Essential hypertension Hyperlipidemia Peripheral vascular occlusive disease Chief Complaint 6 M FU PHASE III MAINTENANCE SELF-PAY PHASE III MAINTENANCE SELF-PAY PHASE III MAINTENANCE SELF-PAY PVD PHASE III MAINTENANCE SELF-PAY Reason for Visit Atherosclerosis of c oronary artery of [place] without angina pectoris Carotid artery stenosis Essential hypertension Hyperlipidemia Peripheral vascular occlusive disease Chief Complaint PHASE III MA INTENANCE SELF-PAY PHASE III MAINTENANCE SELF-PAY PVD PHASE III MAINTENANCE SELF-PAY 2022 PH III Maintenance Self-Pay Chief Complaint PHASE III MA INTENANCE SELF-PAY PVD PHASE III MAINTENANCE SELF-PAY 2022 PH III Maintenance Self-Pay 2022 PH III Maintenance Self-Pay Chief Complaint PVD PHASE III MAINTENANCE SELF-PAY 2022 PH III Maintenance Self-Pay 2022 PH III Maintenance Self-Pay 2022 PH III Maintenance Self-Pay Chief Complaint 2022 PH III Maintena nce Self-Pay 2022 PH III Maintenance Self-Pay 2022 PH III Maintenance Self-Pay 2022 PH III Maintenance Self-Pay Chief Complaint 2022 PH III Maintena nce Self-Pay 2022 PH III Maintenance Self-Pay 2022 PH III Maintenance Self-Pay 1 Y FU/Prev PFM Pt 2022 PH III Maintenance Self-Pay Reason for Visit Atherosclerosis of c oronary artery of [place] without angina pectoris Carotid artery stenosis Essential hypertension Hyperlipidemia Peripheral vascular occlusive disease Chief Complaint 2022 PH III Maintena nce Self-Pay 2022 PH III Maintenance Self-Pay 1 Y FU/Prev PFM Pt 2022 PH III Maintenance Self-Pay CAROTID STENOSIS 2022 PH III Maintenance Self-Pay Reason for Visit Atherosclerosis of c oronary artery of [place] without angina pectoris Carotid artery stenosis Essential hypertension Hyperlipidemia Peripheral vascular occlusive disease Chief Complaint 2022 PH III Maintena nce Self-Pay 1 Y FU/Prev PFM Pt 2022 PH III Maintenance Self-Pay CAROTID STENOSIS 2022 PH III Maintenance Self-Pay CAROTID YEARLY CHECK 2022 PH III Maintenance Self-Pay Reason for Visit Atherosclerosis of c oronary artery of [place] without angina pectoris Carotid artery stenosis Essential hypertension Hyperlipidemia Peripheral vascular occlusive disease Carotid artery stenosis Peripheral vascular occlusive disease Chief Complaint 2022 PH III Maintena nce Self-Pay 1 Y FU/Prev PFM Pt 2022 PH III Maintenance Self-Pay CAROTID STENOSIS 2022 PH III Maintenance Self-Pay CAROTID YEARLY CHECK 2022 PH III Maintenance Self-Pay 2022 PH III Maintenance Self-Pay Reason for Visit Atherosclerosis of c oronary artery of [place] without angina pectoris Carotid artery stenosis Essential hypertension Hyperlipidemia Peripheral vascular occlusive disease Carotid artery stenosis Peripheral vascular occlusive disease Chief Complaint 2022 PH III Maintena nce Self-Pay CAROTID STENOSIS 2022 PH III Maintenance Self-Pay CAROTID YEARLY CHECK 2022 PH III Maintenance Self-Pay 2022 PH III Maintenance Self-Pay Reason for Visit Carotid artery steno sis Peripheral vascular occlusive disease Chief Complaint CAROTID STENOSIS 2022 PH III Maintenance Self-Pay CAROTID YEARLY CHECK 2022 PH III Maintenance Self-Pay 2022 PH III Maintenance Self-Pay NON-PRESSURE CHRONIC ULCER OF OTHER PART OF LEFT 2022 PH III Maintenance Self-Pay Reason for Visit Carotid artery steno sis Peripheral vascular occlusive disease Chief Complaint CAROTID YEARLY CHECK 2022 PH III Maintenance Self-Pay 2022 PH III Maintenance Self-Pay NON-PRESSURE CHRONIC ULCER OF OTHER PART OF LEFT 2022 PH III Maintenance Self-Pay 2022 PH III Maintenance Self-Pay Reason for Visit Carotid artery steno sis Peripheral vascular occlusive disease Chief Complaint 2022 PH III Maintena nce Self-Pay NON-PRESSURE CHRONIC ULCER OF OTHER PART OF LEFT 2022 PH III Maintenance Self-Pay 2022 PH III Maintenance Self-Pay 2022 PH III Maintenance Self-Pay Chief Complaint 2022 PH III Maintena nce Self-Pay 2022 PH III Maintenance Self-Pay 2023 PH3 MAINTENANCE SELF PAY 2023 PH3 MAINTENANCE SELF PAY Chief Complaint 2022 PH III Maintena nce Self-Pay 2023 PH3 MAINTENANCE SELF PAY 2023 PH3 MAINTENANCE SELF PAY 9 M FU/PREV PFM 2023 PH3 MAINTENANCE SELF PAY Reason for Visit Systolic murmur Atherosclerosis of coronary artery of [place] without angina pectoris Essential hypertension Hyperlipidemia Chief Complaint 2023 PH3 MAINTENANCE SELF PAY 2023 PH3 MAINTENANCE SELF PAY 9 M FU/PREV PFM 2023 PH3 MAINTENANCE SELF PAY Cardiac murmur, unspecified 2023 PH3 MAINTENANCE SELF PAY Reason for Visit Systolic murmur Atherosclerosis of coronary artery of [place] heart without angina pectoris Essential hypertension Hyperlipidemia Chief Complaint Admit Date 2023 PH3 MAINTENANCE SELF PAY October 212023 8:00am 2024 PH3 maintenance-self pay December 182024 8:00am 2024 PH3 maintenance-self pay December 232024 6:09am PVD January 06, 2025 8:49am 2024 PH3 maintenance-self pay January 8:00am Chief Complaint Admit Date 2023 PH3 MAINTENANCE SELF PAY October 212023 8:00am 2024 PH3 maintenance-self pay December 182024 8:00am 2024 PH3 maintenance-self pay December 232024 6:09am PVD January 06, 2025 8:49am 2024 PH3 maintenance-self pay January 8:00am OSTEIOMYELITIS LEFT FOOT 5TH DIGIT February 16, 2025 5:28pm 2024 PH3 maintenance-self pay February 17, 2025 6:23am Chief Complaint Admit Date 2023 PH3 MAINTENANCE SELF PAY October 212023 8:00am 2024 PH3 maintenance-self pay December 182024 8:00am 2024 PH3 maintenance-self pay December 232024 6:09am PVD January 06, 2025 8:49am 2024 PH3 maintenance-self pay January 8:00am OSTEIOMYELITIS LEFT FOOT 5TH DIGIT February 16, 2025 5:28pm 2024 PH3 maintenance-self pay February 17, 2025 6:23am ADULT FTT, FALLS, SHAYY, RHABDO, UTI March 07, 2025 4:25pm Reason for Visit Admit Date Acute UTI March 07, 2025 4:2 5pm SHAYY (acute kidney injury) March 07 4:25pm Anemia March 07, 2025 4:2 5pm Contusion of left hip March 07, 2025 4 :25pm GI bleed March 07, 2025 4:2 5pm Recurrent falls March 07, 2025 4:2 5pm Rhabdomyolysis March 07, 2025 4:2 5pm Chronic kidney disease March 07, 2025 4:25pm Chief Complaint Admit Date 2024 PH3 maintenance-self pay December 182024 8:00am 2024 PH3 maintenance-self pay December 232024 6:09am PVD January 06, 2025 8:49am 2024 PH3 maintenance-self pay January 8:00am OSTEIOMYELITIS LEFT FOOT 5TH DIGIT February 16, 2025 5:28pm 2024 PH3 maintenance-self pay February 17, 2025 6:23am ADULT FTT, FALLS, SHAYY, RHABDO, UTI March 07, 2025 4:25pm ADULT FTT, FALLS, SHAYY, RHABDO, UTI March 08, 2025 7:40am ADULT FTT, FALLS, SHAYY, RHABDO, UTI March 09, 2025 12:00pm ADULT FTT, FALLS, SHAYY, RHABDO, UTI March 09, 2025 5:29pm ADULT FTT, FALLS, SHAYY, RHABDO, UTI March 10, 2025 8:56am ADULT FTT, FALLS, SHAYY, RHABDO, UTI March 10, 2025 3:35pm ADULT FTT, FALLS, SHAYY, RHABDO, UTI March 11, 2025 12:09pm ADULT FTT, FALLS, SHAYY, RHABDO, UTI, WOUN DS March 11, 2025 5:26pm ADULT FTT, FALLS, SHAYY, RHABDO, UTI, WOUN DS March 13, 2025 3:14pm 2024 PH3 maintenance-self pay March 19 025 6:48am Hospital FU April 03, 2025 10:32 am Reason for Visit Admit Date Acute UTI March 07, 2025 4:2 5pm SHAYY (acute kidney injury) March 07 4:25pm Anemia March 07, 2025 4:2 5pm Contusion of left hip March 07, 2025 4 :25pm GI bleed March 07, 2025 4:2 5pm Recurrent falls March 07, 2025 4:2 5pm Rhabdomyolysis March 07, 2025 4:2 5pm Unstageable pressure injury of left lowe r leg March 07, 2025 4:25pm Unstageable pressure injury of right low er leg March 07, 2025 4:25pm Chronic kidney disease March 07, 2025 4:25pm Chronic wound of extremity March 07, 2 025 4:25pm Osteomyelitis of left foot March 07 025 4:25pm 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 March 07, 2025 4:25pm Chronic painful diabetic polyneuropathy March 07, 2025 4:25pm Other specified peripheral vascular dise ases March 07, 2025 4:25pm SHAYY (acute kidney injury) March 11 5:26pm Chronic kidney disease, stage 3b February 182024 5:26pm Debility March 11, 2025 5:2 6pm Diabetic foot ulcer March 11, 2025 5:2 6pm Dry gangrene March 11, 2025 5:2 6pm Essential (primary) hypertension February 182024 5:26pm Iron deficiency anemia March 11, 2025 5:26pm Multiple falls March 11, 2025 5:2 6pm PAOD (peripheral arterial occlusive dise ase) March 11, 2025 5:26pm Rhabdomyolysis March 11, 2025 5:2 6pm Type 2 diabetes mellitus with hyperglyce leon March 11, 2025 5:26pm Urinary tract infection March 11, 2025 5:26pm Diabetes mellitus with polyneuropathy Ap ril 2024 5:26pm Hyperlipidemia March 11, 2025 5:2 6pm Osteomyelitis of left foot March 11 5:26pm 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 March 11, 2025 5:26pm Chronic painful diabetic polyneuropathy March 11, 2025 5:26pm Other specified peripheral vascular dise ases March 11, 2025 5:26pm Atherosclerosis of both lowe r extremities with bilateral ulceration April 03, 2025 10:32am Chief Complaint Admit Date 2024 PH3 maintenance-self pay December 182024 8:00am 2024 PH3 maintenance-self pay December 232024 6:09am PVD January 06, 2025 8:49am 2024 PH3 maintenance-self pay January 8:00am OSTEIOMYELITIS LEFT FOOT 5TH DIGIT February 16, 2025 5:28pm 2024 PH3 maintenance-self pay February 17, 2025 6:23am ADULT FTT, FALLS, SHAYY, RHABDO, UTI March 07, 2025 4:25pm ADULT FTT, FALLS, SHAYY, RHABDO, UTI March 08, 2025 7:40am ADULT FTT, FALLS, SHAYY, RHABDO, UTI March 09, 2025 12:00pm ADULT FTT, FALLS, SHAYY, RHABDO, UTI March 09, 2025 5:29pm ADULT FTT, FALLS, SHAYY, RHABDO, UTI March 10, 2025 8:56am ADULT FTT, FALLS, SHAYY, RHABDO, UTI March 10, 2025 3:35pm ADULT FTT, FALLS, SHAYY, RHABDO, UTI March 11, 2025 12:09pm ADULT FTT, FALLS, SHAYY, RHABDO, UTI, WOUN DS March 11, 2025 5:26pm ADULT FTT, FALLS, SHAYY, RHABDO, UTI, WOUN DS March 13, 2025 3:14pm 2024 PH3 maintenance-self pay March 19 025 6:48am Hospital FU April 03, 2025 10:32 am Atherosclerosis of [place] arteries [facility] [place] April 15, 2025 10:51am Reason for Visit Admit Date Acute UTI March 07, 2025 4:2 5pm SHAYY (acute kidney injury) March 07 4:25pm Anemia March 07, 2025 4:2 5pm Contusion of left hip March 07, 2025 4 :25pm GI bleed March 07, 2025 4:2 5pm Recurrent falls March 07, 2025 4:2 5pm Rhabdomyolysis March 07, 2025 4:2 5pm Unstageable pressure injury of left lowe r leg March 07, 2025 4:25pm Unstageable pressure injury of right low er leg March 07, 2025 4:25pm Chronic kidney disease March 07, 2025 4:25pm Chronic wound of extremity March 07, 025 4:25pm Osteomyelitis of left foot March 07 025 4:25pm 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 March 07, 2025 4:25pm Chronic painful diabetic polyneuropathy March 07, 2025 4:25pm Other specified peripheral vascular dise ases March 07, 2025 4:25pm SHAYY (acute kidney injury) March 11 5:26pm Chronic kidney disease, stage 3b February 182024 5:26pm Debility March 11, 2025 5:2 6pm Diabetic foot ulcer March 11, 2025 5:2 6pm Dry gangrene March 11, 2025 5:2 6pm Essential (primary) hypertension February 182024 5:26pm Iron deficiency anemia March 11, 2025 5:26pm Multiple falls March 11, 2025 5:2 6pm PAOD (peripheral arterial occlusive dise ase) March 11, 2025 5:26pm Rhabdomyolysis March 11, 2025 5:2 6pm Type 2 diabetes mellitus with hyperglyce leon March 11, 2025 5:26pm Urinary tract infection March 11, 2025 5:26pm Diabetes mellitus with polyneuropathy Ap ril 2024 5:26pm Hyperlipidemia March 11, 2025 5:2 6pm Osteomyelitis of left foot March 11 025 5:26pm 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 March 11, 2025 5:26pm Chronic painful diabetic polyneuropathy March 11, 2025 5:26pm Other specified peripheral vascular dise ases March 11, 2025 5:26pm Atherosclerosis of both lowe r extremities with bilateral ulceration April 03, 2025 10:32am PAOD (peripheral arterial occlusive dise ase) April 03, 2025 10:32am Carotid artery stenosis April 03, 2025 1 0:32am Diabetes mellitus with polyneuropathy Ma y 2024 10:32am Chief Complaint Admit Date 2024 PH3 maintenance-self pay December 232024 6:09am PVD January 06, 2025 8:49am 2024 PH3 maintenance-self pay January 8:00am OSTEIOMYELITIS LEFT FOOT 5TH DIGIT February 16, 2025 5:28pm 2024 PH3 maintenance-self pay February 17, 2025 6:23am ADULT FTT, FALLS, SHAYY, RHABDO, UTI March 07, 2025 4:25pm ADULT FTT, FALLS, SHAYY, RHABDO, UTI March 08, 2025 7:40am ADULT FTT, FALLS, SHAYY, RHABDO, UTI March 09, 2025 12:00pm ADULT FTT, FALLS, SHAYY, RHABDO, UTI March 09, 2025 5:29pm ADULT FTT, FALLS, SHAYY, RHABDO, UTI March 10, 2025 8:56am ADULT FTT, FALLS, SHAYY, RHABDO, UTI March 10, 2025 3:35pm ADULT FTT, FALLS, SHAYY, RHABDO, UTI March 11, 2025 12:09pm ADULT FTT, FALLS, SHAYY, RHABDO, UTI, WOUN DS March 11, 2025 5:26pm ADULT FTT, FALLS, SHAYY, RHABDO, UTI, WOUN DS March 13, 2025 3:14pm 2024 PH3 maintenance-self pay March 19 6:48am Hospital FU April 03, 2025 10:32 am Atherosclerosis of [place] [facility] April 15, 2025 10:51am Atherosclerosis of [place] arteries [facility] April 15, 2025 4:38pm Chief Complaint Admit Date PVD January 06, 2025 8:49am 2024 PH3 maintenance-self pay January 8:00am OSTEIOMYELITIS LEFT FOOT 5TH DIGIT February 16, 2025 5:28pm 2024 PH3 maintenance-self pay February 17, 2025 6:23am ADULT FTT, FALLS, SHAYY, RHABDO, UTI March 07, 2025 4:25pm ADULT FTT, FALLS, SHAYY, RHABDO, UTI March 08, 2025 7:40am ADULT FTT, FALLS, SHAYY, RHABDO, UTI March 09, 2025 12:00pm ADULT FTT, FALLS, SHAYY, RHABDO, UTI March 09, 2025 5:29pm ADULT FTT, FALLS, SHAYY, RHABDO, UTI March 10, 2025 8:56am ADULT FTT, FALLS, SHAYY, RHABDO, UTI March 10, 2025 3:35pm ADULT FTT, FALLS, SHAYY, RHABDO, UTI March 11, 2025 12:09pm ADULT FTT, FALLS, SHAYY, RHABDO, UTI, WOUN DS March 11, 2025 5:26pm ADULT FTT, FALLS, SHAYY, RHABDO, UTI, WOUN DS March 13, 2025 3:14pm 2024 PH3 maintenance-self pay March 19 6:48am Hospital April 03, 2025 10:32 am Atherosclerosis of [place] arteries [facility] [place] [facility] [place] April 15, 2025 10:51am Atherosclerosis of [place] arteries [facility] [place] April 15, 2025 4:38pm CAROTID STENOSIS April 20, 2025 1:23p m 2024 PH3 maintenance-self pay April 21, 2025 6:10am Chief Complaint Admit Date PVD January 06, 2025 8:49am 2024 PH3 maintenance-self pay January 8:00am OSTEIOMYELITIS LEFT FOOT 5TH DIGIT February 16, 2025 5:28pm 2024 PH3 maintenance-self pay February 17, 2025 6:23am ADULT FTT, FALLS, SHAYY, RHABDO, UTI March 07, 2025 4:25pm ADULT FTT, FALLS, SHAYY, RHABDO, UTI March 08, 2025 7:40am ADULT FTT, FALLS, SHAYY, RHABDO, UTI March 09, 2025 12:00pm ADULT FTT, FALLS, SHAYY, RHABDO, UTI March 09, 2025 5:29pm ADULT FTT, FALLS, SHAYY, RHABDO, UTI March 10, 2025 8:56am ADULT FTT, FALLS, SHAYY, RHABDO, UTI March 10, 2025 3:35pm ADULT FTT, FALLS, SHAYY, RHABDO, UTI March 11, 2025 12:09pm ADULT FTT, FALLS, SHAYY, RHABDO, UTI, WOUN DS March 11, 2025 5:26pm ADULT FTT, FALLS, SHAYY, RHABDO, UTI, WOUN DS March 13, 2025 3:14pm 2024 PH3 maintenance-self pay March 19 025 6:48am Hospital April 03, 2025 10:32 am Atherosclerosis of [place] arteries [facility] [place] [place] April 15, 2025 10:51am Atherosclerosis of [place] arteries [facility] [place] [place] April 15, 2025 4:38pm CAROTID STENOSIS April 20, 2025 1:23p m 2024 PH3 maintenance-self pay April 23, 2025 8:00am NONTOXIC GOITER April 27, 2025 12:38 pm Chief Complaint Admit Date 2024 PH3 maintenance-self pay January 8:00am OSTEIOMYELITIS LEFT FOOT 5TH DIGIT February 16, 2025 5:28pm 2024 PH3 maintenance-self pay February 17, 2025 6:23am ADULT FTT, FALLS, SHAYY, RHABDO, UTI March 07, 2025 4:25pm ADULT FTT, FALLS, SHAYY, RHABDO, UTI March 08, 2025 7:40am ADULT FTT, FALLS, SHAYY, RHABDO, UTI March 09, 2025 12:00pm ADULT FTT, FALLS, SHAYY, RHABDO, UTI March 09, 2025 5:29pm ADULT FTT, FALLS, SHAYY, RHABDO, UTI March 10, 2025 8:56am ADULT FTT, FALLS, SHAYY, RHABDO, UTI March 10, 2025 3:35pm ADULT FTT, FALLS, SHAYY, RHABDO, UTI March 11, 2025 12:09pm ADULT FTT, FALLS, SHAYY, RHABDO, UTI, WOUN DS March 11, 2025 5:26pm ADULT FTT, FALLS, SHAYY, RHABDO, UTI, WOUN DS March 13, 2025 3:14pm 2024 PH3 maintenance-self pay March 19 025 6:48am Hospital April 03, 2025 10:32 am Atherosclerosis of [place] arteries [facility] [place] [place] April 15, 2025 10:51am Atherosclerosis of [place] arteries [facility] [place] [place] April 15, 2025 4:38pm CAROTID STENOSIS April 20, 2025 1:23p m 2024 PH3 maintenance-self pay April 23, 2025 8:00am NONTOXIC GOITER April 27, 2025 12:38 pm 1 Y FU May 07, 2025 9:17 am Reason for Visit Admit Date Acute UTI March 07, 2025 4:2 5pm SHAYY (acute kidney injury) March 07 4:25pm Anemia March 07, 2025 4:2 5pm Contusion of left hip March 07, 2025 4 :25pm GI bleed March 07, 2025 4:2 5pm Recurrent falls March 07, 2025 4:2 5pm Rhabdomyolysis March 07, 2025 4:2 5pm Unstageable pressure injury of left lowe r leg March 07, 2025 4:25pm Unstageable pressure injury of right low er leg March 07, 2025 4:25pm Chronic kidney disease March 07, 2025 4:25pm Chronic wound of extremity March 07, 2 025 4:25pm Osteomyelitis of left foot March 07, 2 025 4:25pm 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 March 07, 2025 4:25pm Chronic painful diabetic polyneuropathy March 07, 2025 4:25pm Other specified peripheral vascular dise ases March 07, 2025 4:25pm SHAYY (acute kidney injury) March 11 5:26pm Chronic kidney disease, stage 3b February 182024 5:26pm Debility March 11, 2025 5:2 6pm Diabetic foot ulcer March 11, 2025 5:2 6pm Dry gangrene March 11, 2025 5:2 6pm Essential (primary) hypertension February 182024 5:26pm Iron deficiency anemia March 11, 2025 5:26pm Multiple falls March 11, 2025 5:2 6pm PAOD (peripheral arterial occlusive dise ase) March 11, 2025 5:26pm Rhabdomyolysis March 11, 2025 5:2 6pm Type 2 diabetes mellitus with hyperglyce leon March 11, 2025 5:26pm Urinary tract infection March 11, 2025 5:26pm Diabetes mellitus with polyneuropathy Ap 2024 5:26pm Hyperlipidemia March 11, 2025 5:2 6pm Osteomyelitis of left foot March 11 025 5:26pm 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 March 11, 2025 5:26pm Chronic painful diabetic polyneuropathy March 11, 2025 5:26pm Other specified peripheral vascular dise ases March 11, 2025 5:26pm Atherosclerosis of both lowe r extremities with bilateral ulceration April 03, 2025 10:32am PAOD (peripheral arterial occlusive dise ase) April 03, 2025 10:32am Carotid artery stenosis April 03, 2025 1 0:32am Diabetes mellitus with polyneuropathy Ma y 2024 10:32am Preop cardiovascular exam May 07 9:17am Systolic murmur May 07, 2025 9:17 am Type 2 diabetes mellitus with hyperglyce leon May 07, 2025 9:17am Atherosclerosis of coronary artery of [place] heart without angina pectoris May 07, 2025 9:17am Essential hypertension May 07, 2025 9 :17am Hyperlipidemia May 07, 2025 9:17 am Family History Relationship Condition Age at Onset Recorded Date/T asad father Coronary artery disease Unknown Cardiac disease Unknown Hypertension Unknown Cerebrovascular accident (CVA) Unknown Relationship Condition Age at Onset Recorded Date/T asad father Coronary artery disease Unknown Cardiac disease Unknown Hypertension Unknown Cerebrovascular accident (CVA) Unknown mother Chronic obstructive pulmonary disease Unk nown Heart failure Unknown Advance Directives Advance Directive Response Recorded Date/ Time Advance Directives Yes October 1:55pm Living Will Yes January 18, 2022 10:55am Power of Biosolids Management Technician Yes January 18 10:55am Documents on File Type Date Recorded Patient Optical Lab Technician Expl anation Advance Directive(s) Advance Directive(s) 10/25/2016 10:12 AM Advance Directive(s) 10/25/2016 10:01 AM Advance Directive(s) 10/11/2016 4:06 PM Documents on File Type Date Recorded Patient Optical Lab Technician Expl anation Advance Directive(s) Advance Directive(s) 10/25/2016 10:12 AM Advance Directive(s) 10/25/2016 10:01 AM Advance Directive(s) 10/11/2016 4:06 PM Documents on File Type Date Recorded Patient Optical Lab Technician Expl anation Advance Directive(s) 10/25/2016 10:01 AM Documents on File Type Date Recorded Patient Optical Lab Technician Expl anation Advance Directive(s) 10/25/2016 10:01 AM Advance Directive Response Recorded Date/ Time Advance Directives Yes October 12:55pm Living Will Yes January 18, 2022 9:55am Power of Biosolids Management Technician Yes January 18 9:55am Advance Directive Response Recorded Date/ Time Advance Directives Yes February 11, 024 3:27pm Living Will Yes February 12, 2024 3:27pm Power of Biosolids Management Technician Yes February 11 3:27pm Advance Directive Response Recorded Date/ Time Living Will Yes October 19 1:13am Do you have a Healthcare Power of Biosolids Management Technician? Yes October 19, 2024 1:13am Advance Directives Yes April 02 9:13am Advance Directive Response Recorded Date/ Time Living Will Yes October 19 1:13am Do you have a Healthcare Power of Biosolids Management Technician? Yes October 19, 2024 1:13am Living Will No March 07, 2025 1:48pm Do you have a Healthcare Power of Biosolids Management Technician? No March 07, 2025 1:48pm Advance Directives Yes April 02 9:13am Advance Directive Response Recorded Date/ Time Do you have a Healthcare Pow er of Biosolids Management Technician? Yes March 12, 2025 11:42am Name of Medical Power of Biosolids Management Technician Julianne Louise n, sister March 12, 2025 11:42am Living Will No March 07, 2025 5:48pm Do you have a Healthcare Pow er of Biosolids Management Technician? No March 07, 2025 5:48pm Advance Directives Yes April 02 9:13am Advance Directive Response Recorded Date/ Time Do you have a Healthcare Pow er of Biosolids Management Technician? Yes March 12, 2025 11:42am Name of Medical Power of Biosolids Management Technician Julianne Louise n, sister March 12, 2025 11:42am Advance Directives on File Yes March 202024 11:26am Living Will Yes April 15, 2025 1 1:26am Do you have a Healthcare Pow er of Biosolids Management Technician? Yes April 15, 2025 11:26am Name of Medical Power of Biosolids Management Technician Julianne Ducnéstor shruthi April 15, 2025 11:26am Advance Directives Yes April 15 11:26am Living Will No March 07, 2025 5:48pm Do you have a Healthcare Pow er of Biosolids Management Technician? No March 07, 2025 5:48pm Advance Directive Response Recorded Date/ Time Do you have a Healthcare Pow er of Biosolids Management Technician? Yes March 12, 2025 11:42am Name of Medical Power of Biosolids Management Technician Julianne hawkins, sister March 12, 2025 11:42am Advance Directives on File Yes March 202024 11:26am Living Will Yes April 15, 2025 1 1:26am Do you have a Healthcare Pow er of Biosolids Management Technician? Yes April 15, 2025 11:26am Name of Medical Power of Biosolids Management Technician Julianne hawkins April 15, 2025 11:26am Advance Directives Yes April 15 11:26am Living Will Yes April 02, 2024 9 :13am Do you have a Healthcare Pow er of Biosolids Management Technician? Yes April 02, 2024 9:13am Living Will No March 07, 2025 5:48pm Do you have a Healthcare Pow er of Biosolids Management Technician? No March 07, 2025 5:48pm Reason for Referral Specialty Diagnoses / Procedures Referred By Viraj banegas Referred To Contact [facility] Diagnoses Chronic midline low back pain without sciatica Procedures CONSULT TO PHYSICAL THERAPY PHYSICAL THERAPY EVALUATION HIGH COMPLEX 45 MINS Rishi Vasquez, DO [address] [place] [address] [facility] [address] [place] [address] Referral ID Status Reason Start Date Expiration Date Visits Requested Visits Authorized [id number] Authorized Auto-Generat ed Referral 11/19/2023 11/18/2024 99 99 Specialty Diagnoses / Procedures Referred By Viraj banegas Referred To Contact General Surgery Diagnoses Multiple thyroid nodules Procedures CONSULT TO GENERAL SURGERY OFFICE/OUTPATIENT NEW [facility] MDM 60 MINUTES Rishi Vasquez, DO [address] [place] [address] Referral ID Status Reason Start Date Expiration Date Visits Requested Visits Authorized [id number] Authorized PCP Requested Referral 01/10/2024 01/09/2025 1 1 Specialty Diagnoses / Procedures Referred By Contac t Referred To Contact Pain Management Diagnoses Chronic midline low back pain without sciatica DDD (degenerative disc disease), lumbar Procedures CONSULT TO PAIN MGT OFFICE/OUTPATIENT NEW [facility] 60 MINUTES Rishi Vasquez, [address] [place] [address] Referral ID Status Reason Start Date Expiration Date Visits Requested Visits Authorized [id number] Authorized PCP Requested Referral 06/04/2024 06/04/2025 1 1 Summary Purpose Additional Source Comments Goals (unrecognized section and content) Goals may be documented in a n alternate sectionGoals may be documented in an alternate sectionGoals may be documented in an alternate sectionGoals may be documented in an alternate sectionGoals may be documented in an alternate sectionGoals may be documented in an alternate sectionGoals may be documented in an alternate sectionGoals may be documented in an alternate sectionGoals may be documented in an alternate sectionGoals may be documented in an alternate sectionGoals may be documented in an alternate sectionGoals may be documented in an alternate sectionGoals may be documented in an alternate sectionGoals may be documented in an alternate sectionGoals may be documented in an alternate sectionGoals may be documented in an alternate sectionGoals may be documented in an alternate sectionGoals may be documented in an alternate sectionGoals may be documented in an alternate sectionGoals may be documented in an alternate sectionGoals may be documented in an alternate sectionGoals may be documented in an alternate sectionGoals may be documented in an alternate sectionGoals may be documented in an alternate sectionGoals may be documented in an alternate sectionGoals may be documented in an alternate sectionGoals may be documented in an alternate sectionGoals may be documented in an alternate sectionGoals may be documented in an alternate sectionGoals may be documented in an alternate sectionGoals may be documented in an alternate sectionGoals may be documented in an alternate sectionGoals may be documented in an alternate section Source Comments (unrecognize d section and content) In the event this informatio n is protected by the Federal Confidentiality of Alcohol and Drug Abuse Patient Records regulations: The Federal rules restrict any use of the information to criminally investigate or prosecute any alcohol or drug abuse patient.[facility] Center[facility] the event this information is protected by the Federal Confidentiality of Alcohol and Drug Abuse Patient Records regulations: The Federal rules restrict any use of the information to criminally investigate or prosecute any alcohol or drug abuse patient.[facility] Center[facility] the event this information is protected by the Federal Confidentiality of Alcohol and Drug Abuse Patient Records regulations: The Federal rules restrict any use of the information to criminally investigate or prosecute any alcohol or drug abuse patient.[facility] the event this information is protected by the Federal Confidentiality of Alcohol and Drug Abuse Patient Records regulations: The Federal rules restrict any use of the information to criminally investigate or prosecute any alcohol or drug abuse patient.[facility] Center[facility] the event this information is protected by the Federal Confidentiality of Alcohol and Drug Abuse Patient Records regulations: The Federal rules restrict any use of the information to criminally investigate or prosecute any alcohol or drug abuse patient.[facility] CenterIn the event this information is protected by the Federal Confidentiality of Alcohol and Drug Abuse Patient Records regulations: The Federal rules restrict any use of the information to criminally investigate or prosecute any alcohol or drug abuse patient.[facility] Center[facility] the event this information is protected by the Federal Confidentiality of Alcohol and Drug Abuse Patient Records regulations: The Federal rules restrict any use of the information to criminally investigate or prosecute any alcohol or drug abuse patient.[facility] CenterIn the event this information is protected by the Federal Confidentiality of Alcohol and Drug Abuse Patient Records regulations: The Federal rules restrict any use of the information to criminally investigate or prosecute any alcohol or drug abuse patient.[facility] CenterIn the event this information is protected by the Federal Confidentiality of Alcohol and Drug Abuse Patient Records regulations: The Federal rules restrict any use of the information to criminally investigate or prosecute any alcohol or drug abuse patient.[facility] CenterIn the event this information is protected by the Federal Confidentiality of Alcohol and Drug Abuse Patient Records regulations: The Federal rules restrict any use of the information to criminally investigate or prosecute any alcohol or drug abuse patient.[facility] CenterIn the event this information is protected by the Federal Confidentiality of Alcohol and Drug Abuse Patient Records regulations: The Federal rules restrict any use of the information to criminally investigate or prosecute any alcohol or drug abuse patient.[facility] CenterIn the event this information is protected by the Federal Confidentiality of Alcohol and Drug Abuse Patient Records regulations: The Federal rules restrict any use of the information to criminally investigate or prosecute any alcohol or drug abuse patient.[facility] CenterIn the event this information is protected by the Federal Confidentiality of Alcohol and Drug Abuse Patient Records regulations: The Federal rules restrict any use of the information to criminally investigate or prosecute any alcohol or drug abuse patient.[facility] CenterIn the event this information is protected by the Federal Confidentiality of Alcohol and Drug Abuse Patient Records regulations: The Federal rules restrict any use of the information to criminally investigate or prosecute any alcohol or drug abuse patient.[facility] CenterIn the event this information is protected by the Federal Confidentiality of Alcohol and Drug Abuse Patient Records regulations: The Federal rules restrict any use of the information to criminally investigate or prosecute any alcohol or drug abuse patient.[facility] CenterIn the event this information is protected by the Federal Confidentiality of Alcohol and Drug Abuse Patient Records regulations: The Federal rules restrict any use of the information to criminally investigate or prosecute any alcohol or drug abuse patient.[facility] CenterIn the event this information is protected by the Federal Confidentiality of Alcohol and Drug Abuse Patient Records regulations: The Federal rules restrict any use of the information to criminally investigate or prosecute any alcohol or drug abuse patient.[facility] CenterIn the event this information is protected by the Federal Confidentiality of Alcohol and Drug Abuse Patient Records regulations: The Federal rules restrict any use of the information to criminally investigate or prosecute any alcohol or drug abuse patient.[facility] CenterIn the event this information is protected by the Federal Confidentiality of Alcohol and Drug Abuse Patient Records regulations: The Federal rules restrict any use of the information to criminally investigate or prosecute any alcohol or drug abuse patient.[facility] CenterIn the event this information is protected by the Federal Confidentiality of Alcohol and Drug Abuse Patient Records regulations: The Federal rules restrict any use of the information to criminally investigate or prosecute any alcohol or drug abuse patient.[facility] CenterIn the event this information is protected by the Federal Confidentiality of Alcohol and Drug Abuse Patient Records regulations: The Federal rules restrict any use of the information to criminally investigate or prosecute any alcohol or drug abuse patient.[facility] CenterIn the event this information is protected by the Federal Confidentiality of Alcohol and Drug Abuse Patient Records regulations: The Federal rules restrict any use of the information to criminally investigate or prosecute any alcohol or drug abuse patient.[facility] CenterIn the event this information is protected by the Federal Confidentiality of Alcohol and Drug Abuse Patient Records regulations: The Federal rules restrict any use of the information to criminally investigate or prosecute any alcohol or drug abuse patient.[facility] CenterIn the event this information is protected by the Federal Confidentiality of Alcohol and Drug Abuse Patient Records regulations: The Federal rules restrict any use of the information to criminally investigate or prosecute any alcohol or drug abuse patient.[facility] CenterIn the event this information is protected by the Federal Confidentiality of Alcohol and Drug Abuse Patient Records regulations: The Federal rules restrict any use of the information to criminally investigate or prosecute any alcohol or drug abuse patient.[facility] CenterIn the event this information is protected by the Federal Confidentiality of Alcohol and Drug Abuse Patient Records regulations: The Federal rules restrict any use of the information to criminally investigate or prosecute any alcohol or drug abuse patient.[facility] CenterIn the event this information is protected by the Federal Confidentiality of Alcohol and Drug Abuse Patient Records regulations: The Federal rules restrict any use of the information to criminally investigate or prosecute any alcohol or drug abuse patient.[facility] CenterIn the event this information is protected by the Federal Confidentiality of Alcohol and Drug Abuse Patient Records regulations: The Federal rules restrict any use of the information to criminally investigate or prosecute any alcohol or drug abuse patient.[facility] CenterIn the event this information is protected by the Federal Confidentiality of Alcohol and Drug Abuse Patient Records regulations: The Federal rules restrict any use of the information to criminally investigate or prosecute any alcohol or drug abuse patient.[facility] CenterIn the event this information is protected by the Federal Confidentiality of Alcohol and Drug Abuse Patient Records regulations: The Federal rules restrict any use of the information to criminally investigate or prosecute any alcohol or drug abuse patient.[facility] CenterIn the event this information is protected by the Federal Confidentiality of Alcohol and Drug Abuse Patient Records regulations: The Federal rules restrict any use of the information to criminally investigate or prosecute any alcohol or drug abuse patient.[facility] CenterIn the event this information is protected by the Federal Confidentiality of Alcohol and Drug Abuse Patient Records regulations: The Federal rules restrict any use of the information to criminally investigate or prosecute any alcohol or drug abuse patient.[facility] CenterIn the event this information is protected by the Federal Confidentiality of Alcohol and Drug Abuse Patient Records regulations: The Federal rules restrict any use of the information to criminally investigate or prosecute any alcohol or drug abuse patient.[facility] CenterIn the event this information is protected by the Federal Confidentiality of Alcohol and Drug Abuse Patient Records regulations: The Federal rules restrict any use of the information to criminally investigate or prosecute any alcohol or drug abuse patient.[facility] CenterIn the event this information is protected by the Federal Confidentiality of Alcohol and Drug Abuse Patient Records regulations: The Federal rules restrict any use of the information to criminally investigate or prosecute any alcohol or drug abuse patient.[facility] CenterIn the event this information is protected by the Federal Confidentiality of Alcohol and Drug Abuse Patient Records regulations: The Federal rules restrict any use of the information to criminally investigate or prosecute any alcohol or drug abuse patient.[facility] CenterIn the event this information is protected by the Federal Confidentiality of Alcohol and Drug Abuse Patient Records regulations: The Federal rules restrict any use of the information to criminally investigate or prosecute any alcohol or drug abuse patient.[facility] CenterIn the event this information is protected by the Federal Confidentiality of Alcohol and Drug Abuse Patient Records regulations: The Federal rules restrict any use of the information to criminally investigate or prosecute any alcohol or drug abuse patient.[facility] CenterIn the event this information is protected by the Federal Confidentiality of Alcohol and Drug Abuse Patient Records regulations: The Federal rules restrict any use of the information to criminally investigate or prosecute any alcohol or drug abuse patient.[facility] CenterIn the event this information is protected by the Federal Confidentiality of Alcohol and Drug Abuse Patient Records regulations: The Federal rules restrict any use of the information to criminally investigate or prosecute any alcohol or drug abuse patient.[facility] CenterIn the event this information is protected by the Federal Confidentiality of Alcohol and Drug Abuse Patient Records regulations: The Federal rules restrict any use of the information to criminally investigate or prosecute any alcohol or drug abuse patient.[facility] CenterIn the event this information is protected by the Federal Confidentiality of Alcohol and Drug Abuse Patient Records regulations: The Federal rules restrict any use of the information to criminally investigate or prosecute any alcohol or drug abuse patient.[facility] CenterIn the event this information is protected by the Federal Confidentiality of Alcohol and Drug Abuse Patient Records regulations: The Federal rules restrict any use of the information to criminally investigate or prosecute any alcohol or drug abuse patient.[facility] CenterIn the event this information is protected by the Federal Confidentiality of Alcohol and Drug Abuse Patient Records regulations: The Federal rules restrict any use of the information to criminally investigate or prosecute any alcohol or drug abuse patient.[facility] CenterIn the event this information is protected by the Federal Confidentiality of Alcohol and Drug Abuse Patient Records regulations: The Federal rules restrict any use of the information to criminally investigate or prosecute any alcohol or drug abuse patient.[facility] CenterIn the event this information is protected by the Federal Confidentiality of Alcohol and Drug Abuse Patient Records regulations: The Federal rules restrict any use of the information to criminally investigate or prosecute any alcohol or drug abuse patient.[facility] CenterIn the event this information is protected by the Federal Confidentiality of Alcohol and Drug Abuse Patient Records regulations: The Federal rules restrict any use of the information to criminally investigate or prosecute any alcohol or drug abuse patient.[facility] CenterIn the event this information is protected by the Federal Confidentiality of Alcohol and Drug Abuse Patient Records regulations: The Federal rules restrict any use of the information to criminally investigate or prosecute any alcohol or drug abuse patient.[facility] CenterIn the event this information is protected by the Federal Confidentiality of Alcohol and Drug Abuse Patient Records regulations: The Federal rules restrict any use of the information to criminally investigate or prosecute any alcohol or drug abuse patient.[facility] CenterIn the event this information is protected by the Federal Confidentiality of Alcohol and Drug Abuse Patient Records regulations: The Federal rules restrict any use of the information to criminally investigate or prosecute any alcohol or drug abuse patient.[facility] CenterIn the event this information is protected by the Federal Confidentiality of Alcohol and Drug Abuse Patient Records regulations: The Federal rules restrict any use of the information to criminally investigate or prosecute any alcohol or drug abuse patient.[facility] CenterIn the event this information is protected by the Federal Confidentiality of Alcohol and Drug Abuse Patient Records regulations: The Federal rules restrict any use of the information to criminally investigate or prosecute any alcohol or drug abuse patient.[facility] CenterIn the event this information is protected by the Federal Confidentiality of Alcohol and Drug Abuse Patient Records regulations: The Federal rules restrict any use of the information to criminally investigate or prosecute any alcohol or drug abuse patient.[facility] CenterIn the event this information is protected by the Federal Confidentiality of Alcohol and Drug Abuse Patient Records regulations: The Federal rules restrict any use of the information to criminally investigate or prosecute any alcohol or drug abuse patient.[facility] CenterIn the event this information is protected by the Federal Confidentiality of Alcohol and Drug Abuse Patient Records regulations: The Federal rules restrict any use of the information to criminally investigate or prosecute any alcohol or drug abuse patient.[facility] CenterIn the event this information is protected by the Federal Confidentiality of Alcohol and Drug Abuse Patient Records regulations: The Federal rules restrict any use of the information to criminally investigate or prosecute any alcohol or drug abuse patient.[facility] CenterIn the event this information is protected by the Federal Confidentiality of Alcohol and Drug Abuse Patient Records regulations: The Federal rules restrict any use of the information to criminally investigate or prosecute any alcohol or drug abuse patient.[facility] CenterIn the event this information is protected by the Federal Confidentiality of Alcohol and Drug Abuse Patient Records regulations: The Federal rules restrict any use of the information to criminally investigate or prosecute any alcohol or drug abuse patient.[facility] CenterIn the event this information is protected by the Federal Confidentiality of Alcohol and Drug Abuse Patient Records regulations: The Federal rules restrict any use of the information to criminally investigate or prosecute any alcohol or drug abuse patient.[facility] CenterIn the event this information is protected by the Federal Confidentiality of Alcohol and Drug Abuse Patient Records regulations: The Federal rules restrict any use of the information to criminally investigate or prosecute any alcohol or drug abuse patient.[facility] CenterIn the event this information is protected by the Federal Confidentiality of Alcohol and Drug Abuse Patient Records regulations: The Federal rules restrict any use of the information to criminally investigate or prosecute any alcohol or drug abuse patient.[facility] CenterIn the event this information is protected by the Federal Confidentiality of Alcohol and Drug Abuse Patient Records regulations: The Federal rules restrict any use of the information to criminally investigate or prosecute any alcohol or drug abuse patient.[facility] CenterIn the event this information is protected by the Federal Confidentiality of Alcohol and Drug Abuse Patient Records regulations: The Federal rules restrict any use of the information to criminally investigate or prosecute any alcohol or drug abuse patient.[facility] CenterIn the event this information is protected by the Federal Confidentiality of Alcohol and Drug Abuse Patient Records regulations: The Federal rules restrict any use of the information to criminally investigate or prosecute any alcohol or drug abuse patient.[facility] CenterIn the event this information is protected by the Federal Confidentiality of Alcohol and Drug Abuse Patient Records regulations: The Federal rules restrict any use of the information to criminally investigate or prosecute any alcohol or drug abuse patient.[facility] CenterIn the event this information is protected by the Federal Confidentiality of Alcohol and Drug Abuse Patient Records regulations: The Federal rules restrict any use of the information to criminally investigate or prosecute any alcohol or drug abuse patient.[facility] CenterIn the event this information is protected by the Federal Confidentiality of Alcohol and Drug Abuse Patient Records regulations: The Federal rules restrict any use of the information to criminally investigate or prosecute any alcohol or drug abuse patient.[facility] CenterIn the event this information is protected by the Federal Confidentiality of Alcohol and Drug Abuse Patient Records regulations: The Federal rules restrict any use of the information to criminally investigate or prosecute any alcohol or drug abuse patient.[facility] CenterIn the event this information is protected by the Federal Confidentiality of Alcohol and Drug Abuse Patient Records regulations: The Federal rules restrict any use of the information to criminally investigate or prosecute any alcohol or drug abuse patient.[facility] CenterIn the event this information is protected by the Federal Confidentiality of Alcohol and Drug Abuse Patient Records regulations: The Federal rules restrict any use of the information to criminally investigate or prosecute any alcohol or drug abuse patient.[facility] CenterIn the event this information is protected by the Federal Confidentiality of Alcohol and Drug Abuse Patient Records regulations: The Federal rules restrict any use of the information to criminally investigate or prosecute any alcohol or drug abuse patient.[facility] CenterIn the event this information is protected by the Federal Confidentiality of Alcohol and Drug Abuse Patient Records regulations: The Federal rules restrict any use of the information to criminally investigate or prosecute any alcohol or drug abuse patient.[facility] CenterIn the event this information is protected by the Federal Confidentiality of Alcohol and Drug Abuse Patient Records regulations: The Federal rules restrict any use of the information to criminally investigate or prosecute any alcohol or drug abuse patient.[facility] CenterIn the event this information is protected by the Federal Confidentiality of Alcohol and Drug Abuse Patient Records regulations: The Federal rules restrict any use of the information to criminally investigate or prosecute any alcohol or drug abuse patient.[facility] CenterIn the event this information is protected by the Federal Confidentiality of Alcohol and Drug Abuse Patient Records regulations: The Federal rules restrict any use of the information to criminally investigate or prosecute any alcohol or drug abuse patient.[facility] CenterIn the event this information is protected by the Federal Confidentiality of Alcohol and Drug Abuse Patient Records regulations: The Federal rules restrict any use of the information to criminally investigate or prosecute any alcohol or drug abuse patient.[facility] CenterIn the event this information is protected by the Federal Confidentiality of Alcohol and Drug Abuse Patient Records regulations: The Federal rules restrict any use of the information to criminally investigate or prosecute any alcohol or drug abuse patient.[facility] CenterIn the event this information is protected by the Federal Confidentiality of Alcohol and Drug Abuse Patient Records regulations: The Federal rules restrict any use of the information to criminally investigate or prosecute any alcohol or drug abuse patient.[facility] CenterIn the event this information is protected by the Federal Confidentiality of Alcohol and Drug Abuse Patient Records regulations: The Federal rules restrict any use of the information to criminally investigate or prosecute any alcohol or drug abuse patient.[facility] CenterIn the event this information is protected by the Federal Confidentiality of Alcohol and Drug Abuse Patient Records regulations: The Federal rules restrict any use of the information to criminally investigate or prosecute any alcohol or drug abuse patient.[facility] CenterIn the event this information is protected by the Federal Confidentiality of Alcohol and Drug Abuse Patient Records regulations: The Federal rules restrict any use of the information to criminally investigate or prosecute any alcohol or drug abuse patient.[facility] CenterIn the event this information is protected by the Federal Confidentiality of Alcohol and Drug Abuse Patient Records regulations: The Federal rules restrict any use of the information to criminally investigate or prosecute any alcohol or drug abuse patient.[facility] CenterIn the event this information is protected by the Federal Confidentiality of Alcohol and Drug Abuse Patient Records regulations: The Federal rules restrict any use of the information to criminally investigate or prosecute any alcohol or drug abuse patient.[facility] Reason for Visit (unrecogniz ed section and content) Reason Comments PT Discharge Physical Therapy Specialty Diagnoses / Procedures Referred By Contac t Referred To Contact [facility] Diagnoses Chronic midline low back pain without sciatica Procedures CONSULT TO PHYSICAL THERAPY PHYSICAL THERAPY EVALUATION HIGH COMPLEX 45 MINS Rishi Vasquez DO [address] [place] [address] [facility] [address] [place] [address] Referral ID Status Reason Start Date Expiration Date Visits Requested Visits Authorized [id number] Authorized Auto-Generat ed Referral 11/19/2023 11/18/2024 99 99 Reason Comments Physical Therapy Reason Comments Radiology US Specialty Diagnoses / Procedures Referred By Contac t Referred To Contact [facility] Diagnoses Abnormal thyroid function test Procedures US THYROID/PARATHYROID US SOFT TISSUE HEAD & NECK REAL TIME IMGE DOCM Rishi Vasquez DO [address] [place] [address] [place] [id number] Referral ID Status Reason Start Date Expiration Date V isits Requested Visits Authorized [id number] Closed Auto-Generate d Referral 12/15/2022 01/14/2024 1 1 Reason Comments Results Reason Onset Date Comments Refill Request 03/22/2022 Reason Comments Refill Request Reason Onset Date Comments Refill Request 05/01/2022 Reason Comments Outpatient Colonoscopy Reason Comments 6 Month Exam Reason Comments Results Appointment Reason Comments Arm Pain R upper arm pain x l ast night Reason Comments right wrist and chest soreness Fell yest erday and landed on right wrist and breast Reason Comments UTI Frequency x 1.5 week s Reason Comments 6 Month Exam Reason Comments testing question Reason Onset Date Comments Refill Request 01/08/2023 Reason Comments Release Of Medical Records Reason Comments Appointment Glimepiride PA Reason Onset Date Comments Refill Request 05/27/2023 Reason Comments Results Specialty Diagnoses / Procedures Referred By Contac t Referred To Contact [facility] Diagnoses Abnormal mammogram Procedures US BREAST LTD RIGHT US BREAST UNI REAL TIME WITH IMAGE LIMITED Danyelle Tripp PA-C [address] [place] [address] [facility] [address] [place] [address] Referral ID Status Reason Start Date Expiration Date V isits Requested Visits Authorized [id number] Closed Auto-Generate d Referral 05/29/2023 06/27/2024 1 1 Reason Comments Radiology NM Specialty Diagnoses / Procedures Referred By Contac t Referred To Contact [facility] Diagnoses Abnormal thyroid function test Procedures NM THY UPTAKE AND SCAN THYROID UPTAKE W/BLOOD FLOW SNGLE/MULT JAMARI NATALIA Rishi Vasquez L, DO [address] [place] [address] [facility] & [facility] [address] [place] [address] Referral ID Status Reason Start Date Expiration Date V isits Requested Visits Authorized [id number] Closed Auto-Generate d Referral 12/15/2022 01/14/2024 1 1 Reason Onset Date Comments Refill Request 10/03/2023 Reason Comments Radiology US Specialty Diagnoses / Procedures Referred By Contac t Referred To Contact US IMAGING Diagnoses Multiple thyroid nodules Procedures US THYROID/PARATHYROID US SOFT TISSUE HEAD & NECK REAL TIME IMGE DOCM Rishi Vasquez L, DO [address] [place] [address] [place] [address] Referral ID Status Reason Start Date Expiration Date V isits Requested Visits Authorized [id number] Closed Auto-Generate d Referral 12/05/2023 01/03/2025 1 1 Reason Comments PT Eval Reason Onset Date Comments Refill Request 01/28/2024 Reason Comments Patient Update Reason Comments Results Reason Onset Date Comments Refill Request 03/22/2024 Reason Comments Orders Reason Comments Patient Update Reason Comments Patient Question Fish oil - [place] 3 Reason Comments Patient Question Reason Onset Date Comments Refill Request 12/25/2024 Reason Comments HH Nursing POC Reason Comments [facility] HH PT POC Reason Comments ER F/U [facility] ED -03/20 Multiple falls, gangrene SADIE feet Reason Comments [facility]dc Plan of Care Reason Comments diabetic f/up Reason Comments Diabetes Reason Comments Medication Problem Care Teams (unrecognized sec tion and content) 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 Relationship Specialty Start Date End Date Rishi Vasquez, DO [address] [place] [address] PCP - General Family Practice 03/26/13 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 Relationship Specialty Start Date End Date Rishi Vasquez, DO [address] [place] [address] PCP - General Family Practice 03/26/13 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 Relationship Specialty Start Date End Date Rishi Vasquez, DO [address] [place] [address] PCP - General Family Practice 03/26/13 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 Relationship Specialty Start Date End Date Rishi Vasquez, DO [address] [place] [address] PCP - General Family Practice 03/26/13 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 Relationship Specialty Start Date End Date Rishi Vasquez, DO [address] [place] [address] PCP - General Family Practice 03/26/13 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 Relationship Specialty Start Date End Date Rishi Vasquez, DO [address] [place] [address] PCP - General Family Practice 03/26/13 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 Relationship Specialty Start Date End Date Rishi Vasquez, DO [address] [place] [address] PCP - General Family Practice 03/26/13 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 Relationship Specialty Start Date End Date Rishi Vasquez, DO [address] [place] [address] PCP - General Family Practice 03/26/13 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 Relationship Specialty Start Date End Date Rishi Vasquez, DO [address] [place] [address] PCP - General Family Practice 03/26/13 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 Relationship Specialty Start Date End Date Rishi Vasquez, DO [address] [place] [address] PCP - General Family Practice 03/26/13 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 Relationship Specialty Start Date End Date Rishi Vasquez, DO [address] [place] [address] PCP - General Family Practice 03/26/13 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 Relationship Specialty Start Date End Date Rishi Vasquez, DO [address] [place] [address] PCP - General Family Medicine 03/26/13 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 Relationship Specialty Start Date End Date Rishi Vasquez, DO [address] [place] [address] PCP - General Family Medicine 03/26/13 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 Relationship Specialty Start Date End Date Rishi Vasquez, DO [address] [place] [address] PCP - General Family Medicine 03/26/13 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 Rishi Vasquez , DO Family Provider Active Dr. Rishi Vasquez , DO Primary Care Provider Active Team Status: Active Member Role Status Dates Dr. Rishi Vasquez , DO Primary Care Provider Active Dr. Russell Clement MD Attending Provider Active Dr. Brandon Membreno , DPM Referring Provider Active Team Status: Inactive Member Role Status Dates Dr. Rishi Vasquez , DO Primary Care Pr ovider, Attending Provider, Referring Provider Active Team Status: Inactive Member Role Status Dates Dr. Rishi Vasquez , DO Primary Care Provider Active Dr. Brandon Membreno , DPM Attending Provider Active Team Status: Inactive Member Role Status Dates Dr. 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 Rishi Vasquez DO Primary Care Provider Active Dr. Kwaku Moscoso MD Attending Provider Active Team Status: Inactive Member Role Status Dates Dr. Rishi Vasquez DO Primary Care Provider Active Dr. Kwaku Moscoso MD Attending Provider, Referring Provider Active Team Status: Active Member Role Status Dates Dr. Rishi Vasquez DO Primary Care Pr ovider, Attending Provider, Referring Provider Active Team Status: Active Member Role Status Dates Dr. Rishi Vasquez DO Primary Care Provider Active Dr. 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 Rishi Vasquez , DO Primary Care Provider, Referr ing Provider Active Dr. 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 Rishi Vasquez DO Primary Care Provider Active Dr. 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 Relationship Specialty Start Date End Date Rishi Vasquez DO [address] [place] [place] [address] PCP - General Family Medicine 03/26/13 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 Relationship Specialty Start Date End Date Rishi Vasquez DO [address] [place] [place] [address] PCP - General Family Medicine 03/26/13 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 Relationship Specialty Start Date End Date Rishi Vasquez DO [address] [facility] [place] [address] PCP - General Family Medicine 03/26/13 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 Relationship Specialty Start Date End Date Rishi Vasquez DO [address] [facility] [place] [address] PCP - General Family Medicine 03/26/13 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 Rishi Vasquez DO Primary Care Provider, Referr ing Provider Active Dr. Ciaran Jacobo MD Attending Provider Active 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 Relationship Specialty Start Date End Date Rishi Vasquez DO [address] [place] [address] PCP - General Family Medicine 03/26/13 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 Relationship Specialty Start Date End Date Rishi Vasquez DO [address] [place] [address] PCP - General Family Medicine 03/26/13 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 Relationship Specialty Start Date End Date Rishi Vasquez DO [address] [facility] [place] [address] PCP - General Family Medicine 03/26/13 Team Status: Active Member Role Status Dates Dr. Rishi Vasquez DO Primary Care Provider Active Dr. Elyssa Fierro MD Attending Provider Activ e Team Status: Inactive Member Role Status Dates Dr. Rishi Vasquez DO Primary Care Provider Active Dr. 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 Relationship Specialty Start Date End Date Rishi Vasquez, DO [address] [facility] [place] [address] PCP - General Family Medicine 03/26/13 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 Relationship Specialty Start Date End Date Rishi Vasquez, DO [address] [facility] [place] [address] PCP - General Family Medicine 03/26/13 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 Relationship Specialty Start Date End Date Rishi Vasquez, DO [address] [facility] [place] [address] PCP - General Family Medicine 03/26/13 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 Relationship Specialty Start Date End Date Rishi Vasquez DO [address] [facility] [place] [address] PCP - General Family Medicine 03/26/13 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 Relationship Specialty Start Date End Date Rishi Vasquez, [address] [facility] [place] [address] PCP - General Family Medicine 03/26/13 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 Relationship Specialty Start Date End Date Rishi Vasquez, [address] [facility] [place] [address] PCP - General Family Medicine 03/26/13 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 Relationship Specialty Start Date End Date Rishi Vasquez DO [address] [facility] [place] [address] PCP - General Family Medicine 03/26/13 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 Relationship Specialty Start Date End Date Rishi Vasquez, DO [address] [facility] [place] [address] PCP - General Family Medicine 03/26/13 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 Relationship Specialty Start Date End Date Rishi Vasquez, DO [address] [facility] [place] [address] PCP - General Family Medicine 03/26/13 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 Relationship Specialty Start Date End Date Rishi Vasquez DO [address] [facility] [place] [address] PCP - General Family Medicine 03/26/13 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 Relationship Specialty Start Date End Date Rishi Vasquez, DO [address] [place] [place] [address] PCP - General Family Medicine 03/26/13 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 Relationship Specialty Start Date End Date Rishi Vasquez, [address] [facility] [place] [address] PCP - General Family Medicine 03/26/13 Clary Andres, PROGRAMS DIRECTOR.SHOEMAKING FINISHER [address] [place] [place] [address] Office Nurse Practitioner Family Medicine 10/26/24 Dillon Watts, PROGRAMS DIRECTOR.SHOEMAKING FINISHER [address] [place] [place] [address] Office Nurse Practitioner Family Medicine 10/26/24 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 Relationship Specialty Start Date End Date Rishi Vasquez, [address] [place] [place] [address] PCP - General Family Medicine 03/26/13 Clary Andres, PROGRAMS DIRECTOR.SHOEMAKING FINISHER [address] [facility] [place] [address] Office Nurse Practitioner Family Medicine 10/26/24 Dillon Watts APRN.SHOEMAKING FINISHER [address] [place] [address] Office Nurse Practitioner Family [facility] 10/26/24 Team Status: Active Member Role Status Dates Dr. Rishi Vasquez DO Primary Care Provider Active Team Status: Inactive Member Role Status Dates Dr. Rishi Vasquez DO Primary Care Provider Active Start: November 18, 2024 End: November 18, 2024 Dr. Rishi Vasquez DO Attending Provider Active Start: November 18, 2024 End: November 18, 2024 Dr. Rishi Vasquez DO Referring Provider Active Start: November 18, 2024 End: November 18, 2024 Team Status: Inactive Member Role Status Dates Dr. Rishi Vasquez DO Primary Care Provider Active Start: December 17, 2024 End: December 17, 2024 Dr. Brandon Membreno DPM Attending Provider Active Start: December 17, 2024 End: December 17, 2024 Dr. Brandon Membreno DPM Referring Provider Active Start: December 17, 2024 End: December 17, 2024 Team Status: Inactive Member Role Status Dates Dr. Rishi Vasquez DO Primary Care Provider Active Start: December 18, 2024 End: December 19, 2024 Dr. Rishi Vasquez DO Attending Provider Active Start: December 18, 2024 End: December 19, 2024 Dr. Rishi Vasquez DO Referring Provider Active Start: December 18, 2024 End: December 19, 2024 Team Status: Inactive Member Role Status Dates Dr. Rishi Vasquez DO Primary Care Provider Active Start: December 23, 2024 End: January 16, 2025 Dr. Rishi Vasquez DO Attending Provider Active Start: December 23, 2024 End: January 16, 2025 Dr. Rishi Vasquez DO Referring Provider Active Start: December 23, 2024 End: January 16, 2025 Team Status: Inactive Member Role Status Dates Dr. Rishi Vasquez DO Primary Care Provider Active Start: December 30, 2024 End: December 30, 2024 Dr. Patel Irene DPM Attending Provider Active Start: December 30, 2024 End: December 30, 2024 Team Status: Inactive Member Role Status Dates Dr. Rishi Vasquez DO Primary Care Provider Active Start: January 06, 2025 End: January 06, 2025 Dr. Brandon Membreno DPM Attending Provider Active Start: January 06, 2025 End: January 06, 2025 Dr. Brandon Membreno DPM Referring Provider Active Start: January 06, 2025 End: January 06, 2025 Team Status: Active Member Role Status Dates Dr. Rishi Vasquez DO Primary Care Provider Active Start: January 06, 2025 Dr. Russell Clement MD Attending Provider Active S tart: January 06, 2025 Dr. Brandon Membreno DPM Referring Provider Active Start: January 06, 2025 Team Status: Inactive Member Role Status Dates Dr. Rishi Vasquez DO Primary Care Provider Active Start: February 05, 2025 End: February 16, 2025 Dr. Rishi Vasquez DO Attending Provider Active Start: February 05, 2025 End: February 16, 2025 Dr. Rishi Vasquez DO Referring Provider Active Start: February 05, 2025 End: February 16, 2025 Team Status: Active Member Role Status Dates Dr. Rishi Vasquez DO Primary Care Provider Active Start: February 16, 2025 Dr. Rishi Vasquez DO Attending Provider Active Start: February 16, 2025 Team Status: Inactive Member Role Status Dates Dr. Rishi Vasquez DO Primary Care Provider Active Start: February 16, 2025 End: February 16, 2025 Dr. Ciaran Berry DPM Attending Provider Active Start: February 16, 2025 End: February 16, 2025 Dr. Ciaran Berry DPM Referring Provider Active Start: February 16, 2025 End: February 16, 2025 Team Status: Active Member Role Status Dates Dr. Rishi Vasquez DO Primary Care Provider Active Start: February 17, 2025 Dr. Rishi Vasquez DO Attending Provider Active Start: February 17, 2025 Dr. Rishi Vasquez DO Referring Provider Active Start: February 17, 2025 Team Status: Inactive Member Role Status Dates Dr. Rishi Vasquez DO Primary Care Provider Active Start: February 26, 2025 End: February 26, 2025 Dr. Patel Irene DPM Attending Provider Active Start: February 26, 2025 End: February 26, 2025 Dr. Patel Irene , [place] Referring Provider Active Start: February 26, 2025 End: February 26, 2025 Team Status: Active Member Role Status Dates Dr. Rishi Vasquez DO Primary Care Provider Active Start: March 07, 2025 Dr. Esteban Becker DO Emergency Provider Active Start : March 07, 2025 Dr. Maddie Merchant MD Admit Provider Active St art: March 07, 2025 Dr. Maddie Merchant MD Attending Provider Active Start: March 07, 2025 Dr. Maddie Merchant MD Referring Provider Active Start: March 07, 2025 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 Relationship Specialty Start Date End Date Rishi Vasquez DO [address] [facility] [place] [address] PCP - General Family Medicine 03/26/13 [facility], PROGRAMS DIRECTOR.SHOEMAKING FINISHER [address] [facility] [place] [address] [facility] 10/26/24 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 Relationship Specialty Start Date End Date Rishi Vasquez DO [address] [facility] [place] [address] PCP - General Family Medicine 03/26/13 [facility], PROGRAMS DIRECTOR.SHOEMAKING FINISHER [address] [facility] [place] [address] [facility] 10/26/24 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 Relationship Specialty Start Date End Date Rishi Vasquez DO [address] [facility] [place] [address] PCP - General Family Medicine 03/26/13 [facility] PROGRAMS DIRECTOR.SHOEMAKING FINISHER [address] [facility] [place] [address] [facility] 10/26/24 Team Status: Inactive Member Role Status Dates Dr. Rishi Vasquez DO Primary Care Provider Active Start: February 17, 2025 End: March 18, 2025 Dr. Rishi Vasquez DO Attending Provider Active Start: February 17, 2025 End: March 18, 2025 Dr. Rishi Vasquez DO Referring Provider Active Start: February 17, 2025 End: March 18, 2025 Team Status: Inactive Member Role Status Dates Dr. Rishi Vasquez DO Primary Care Provider Active Start: March 07, 2025 End: March 11, 2025 Dr. Esteban Becker DO Emergency Provider Active Start : March 07, 2025 End: March 11, 2025 Dr. Maddie Merchant MD Admit Provider Active St art: March 07, 2025 End: March 11, 2025 Dr. Maddie Merchant MD Referring Provider Active Start: March 07, 2025 End: March 11, 2025 Dr. Maddie Merchant MD Other Provider Active St art: March 07, 2025 End: March 11, 2025 Dr. Patel Irene DPM Other Provider Active St art: March 07, 2025 End: March 11, 2025 Dr. Andrea Cornejo MD Other Provider Active Start: March 07, 2025 End: March 11, 2025 Dr. Rusesll Clement MD Other Provider Active Start : March 07, 2025 End: March 11, 2025 Dr. Broderick Dempsey MD Attending Provider Active Start: March 07, 2025 End: March 11, 2025 Dr. Kwaku Mendoza MD Other Provider Active Start: March 07, 2025 End: March 11, 2025 Team Status: Active Member Role Status Dates Dr. Rishi Vasquez DO Primary Care Provider Active Start: March 08, 2025 Dr. Esteban Becker DO Emergency Provider Active Start : March 08, 2025 Dr. Maddie Merchant MD Admit Provider Active St art: March 08, 2025 Dr. Maddie Merchant MD Other Provider Active St art: March 08, 2025 Dr. Patel Irene DPM Other Provider Active St art: March 08, 2025 Dr. Broderick Dempsey MD Attending Provider Active Start: March 08, 2025 Team Status: Active Member Role Status Dates Dr. Rishi Vasquez DO Primary Care Provider Active Start: March 09, 2025 Dr. Esteban Becker DO Emergency Provider Active Start : March 09, 2025 Dr. Maddie Merchant MD Admit Provider Active St art: March 09, 2025 Dr. Maddie Merchant MD Other Provider Active St art: March 09, 2025 Dr. Patel Irene DPM Other Provider Active St art: March 09, 2025 Dr. Andrea Cornejo MD Other Provider Active Start: March 09, 2025 Dr. Russell Clement MD Other Provider Active Start : March 09, 2025 Dr. Broderick Dempsey MD Attending Provider Active Start: March 09, 2025 Team Status: Active Member Role Status Dates Dr. Rishi Vasquez DO Primary Care Provider Active Start: March 09, 2025 Dr. Esteban Becker DO Emergency Provider Active Start : March 09, 2025 Dr. Maddie Merchant MD Admit Provider Active St art: March 09, 2025 Dr. Maddie Merchant MD Referring Provider Active Start: March 09, 2025 Dr. Maddie Merchant MD Other Provider Active St art: March 09, 2025 Dr. Patel Irene DPM Other Provider Active St art: March 09, 2025 Dr. Andrea Cornejo MD Other Provider Active Start: March 09, 2025 Dr. Russell Clement MD Attending Provider Active S tart: March 09, 2025 Dr. Russell Clement MD Other Provider Active Start : March 09, 2025 Team Status: Active Member Role Status Dates Dr. Rishi Vasquez DO Primary Care Provider Active Start: March 10, 2025 Dr. Esteban Becker DO Emergency Provider Active Start : March 10, 2025 Dr. Maddie Merchant MD Admit Provider Active St art: March 10, 2025 Dr. Maddie Merchant MD Referring Provider Active Start: March 10, 2025 Dr. Maddie Merchant MD Other Provider Active St art: March 10, 2025 Dr. Patel Irene DPM Other Provider Active St art: March 10, 2025 Dr. Andrea Cornejo MD Other Provider Active Start: March 10, 2025 Dr. Russell Clement MD Other Provider Active Start : March 10, 2025 Dr. Broderick Dempsey MD Other Provider Active Sta rt: March 10, 2025 Dr. Kwaku Mendoza MD Other Provider Active Start: March 10, 2025 LILLIAM Gilmore Attending Provider Active Star t: March 10, 2025 Team Status: Active Member Role Status Dates Dr. Rishi Vasquez DO Primary Care Provider Active Start: March 10, 2025 Dr. Esteban Becker DO Emergency Provider Active Start : March 10, 2025 Dr. Maddie Merchant MD Admit Provider Active St art: March 10, 2025 Dr. Maddie Merchant MD Other Provider Active St art: March 10, 2025 Dr. Patel Irene DPM Other Provider Active St art: March 10, 2025 Dr. Andrea Cornejo MD Other Provider Active Start: March 10, 2025 Dr. Russell Clement MD Other Provider Active Start : March 10, 2025 Dr. Broderick Dempsey MD Attending Provider Active Start: March 10, 2025 Dr. Broderick Dempsey MD Other Provider Active Sta rt: March 10, 2025 Dr. Kwaku Mendoza MD Other Provider Active Start: March 10, 2025 Team Status: Active Member Role Status Dates Dr. Rishi Vasquez DO Primary Care Provider Active Start: March 11, 2025 Dr. Esteban Becker DO Emergency Provider Active Start : March 11, 2025 Dr. Maddie Merchant MD Admit Provider Active St art: March 11, 2025 Dr. Maddie Merchant MD Other Provider Active St art: March 11, 2025 Dr. Patel Irene DPM Other Provider Active St art: March 11, 2025 Dr. Andrea Cornejo MD Other Provider Active Start: March 11, 2025 Dr. Russell Clement MD Other Provider Active Start : March 11, 2025 Dr. Broderick Dempsey MD Attending Provider Active Start: March 11, 2025 Dr. Broderick Dempsey MD Other Provider Active Sta rt: March 11, 2025 Dr. Kwaku Mendoza MD Other Provider Active Start: March 11, 2025 Team Status: Inactive Member Role Status Dates Dr. Rishi Vasquez DO Primary Care Provider Active Start: March 11, 2025 End: March 20, 2025 Dr. Phong Solomon MD Admit Provider Active Star t: March 11, 2025 End: March 20, 2025 Dr. Phong Solomon MD Attending Provider Active Start: March 11, 2025 End: March 20, 2025 Dr. Phong Solomon MD Referring Provider Active Start: March 11, 2025 End: March 20, 2025 Dr. Kwaku Mendoza MD Other Provider Active Start: March 11, 2025 End: March 20, 2025 Dr. Patel Irene DPM Other Provider Active St art: March 11, 2025 End: March 20, 2025 LILLIAM Gilmore Other Provider Active Start: A pril 2024 End: March 20, 2025 Team Status: Active Member Role Status Dates Dr. Rishi Vasquez DO Primary Care Provider Active Start: March 13, 2025 Dr. Phong Solomon MD Admit Provider Active Star t: March 13, 2025 Dr. Phong Solomon MD Referring Provider Active Start: March 13, 2025 Dr. Phong Solomon MD Other Provider Active Star t: March 13, 2025 Dr. Kwaku Mendoza MD Other Provider Active Start: March 13, 2025 Dr. Patel Irene DPM Other Provider Active St art: March 13, 2025 LILLIAM Gilmore Attending Provider Active Star t: March 13, 2025 LILLIAM Gilmore Other Provider Active Start: A pri2024 Team Status: Active Member Role Status Dates Dr. Rishi Vasquez DO Primary Care Provider Active Start: March 19, 2025 Dr. Rishi Vasquez DO Attending Provider Active Start: March 19, 2025 Dr. Rishi Vasquez DO Referring Provider Active Start: March 19, 2025 Team Status: Inactive Member Role Status Dates Dr. Rishi Vasquez DO Primary Care Provider Active Start: March 19, 2025 End: March 19, 2025 Dr. Phong Solomon MD Attending Provider Active Start: March 19, 2025 End: March 19, 2025 Dr. Phong Solomon MD Referring Provider Active Start: March 19, 2025 End: March 19, 2025 Team Status: Inactive Member Role Status Dates Dr. Rishi Vasquez DO Primary Care Provider Active Start: April 03, 2025 End: April 03, 2025 Dr. Rishi Vasquez DO Referring Provider Active Start: April 03, 2025 End: April 03, 2025 LILLIAM Gilmore Attending Provider Active Star t: April 03, 2025 End: April 03, 2025 Team Status: Inactive Member Role Status Dates Dr. Rishi Vasquez DO Primary Care Provider Active Start: April 15, 2025 End: April 15, 2025 Dr. Russell Clement MD Attending Provider Active S tart: April 15, 2025 End: April 15, 2025 Dr. Russell Clement MD Referring Provider Active S tart: April 15, 2025 End: April 15, 2025 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 Relationship Specialty Start Date End Date Rishi Vasquez DO [address] [place] [address] PCP - General Family Medicine 03/26/13 VioletaDillon, PROGRAMS DIRECTOR.SHOEMAKING FINISHER [address] [place] [address] Office Nurse Practitioner [facility] 10/26/24 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 Relationship Specialty Start Date End Date Rishi Vasquez DO [address] [place] [address] PCP - General Family Medicine 03/26/13 VioletaDillon, PROGRAMS DIRECTOR.SHOEMAKING FINISHER [address] [place] [address] [facility] Team Status: Inactive Member Role Status Dates Dr. Rishi Vasquez DO Primary Care Provider Active Start: March 19, 2025 End: April 18, 2025 Dr. Rishi Vasquez DO Attending Provider Active Start: March 19, 2025 End: April 18, 2025 Dr. Rishi Vasquez DO Referring Provider Active Start: March 19, 2025 End: April 18, 2025 Team Status: Active Member Role Status Dates Dr. Rishi Vasquez DO Primary Care Provider Active Start: April 15, 2025 Dr. Russell Clement MD Attending Provider Active S tart: April 15, 2025 Dr. Russell Clement MD Referring Provider Active S tart: April 15, 2025 Dr. Russell Clement MD Other Provider Active Start : April 15, 2025 Team Status: Inactive Member Role Status Dates Dr. Rishi Vasquez DO Primary Care Provider Active Start: April 20, 2025 End: April 20, 2025 LILLIAM Gilmore Attending Provider Active Star t: April 20, 2025 End: April 20, 2025 LILLIAM Gilmore Referring Provider Active Star t: April 20, 2025 End: April 20, 2025 Team Status: Active Member Role Status Dates Dr. Rishi Vasquez DO Primary Care Provider Active Start: April 20, 2025 Dr. Russell Clement MD Attending Provider Active S tart: April 20, 2025 Team Status: Active Member Role Status Dates Dr. Rishi Vasquez DO Primary Care Provider Active Start: April 21, 2025 Dr. Rishi Vasquez DO Attending Provider Active Start: April 21, 2025 Dr. Rishi Vasquez DO Referring Provider Active Start: April 21, 2025 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 Relationship Specialty Start Date End Date Rishi Vasquez DO [address] [place], [place] [id number] PCP - General Family Medicine 03/26/13 Dillon Watts APRN.SHOEMAKING FINISHER [address] [place], [place] [id number] Office Nurse Practitioner Family [facility] 10/26/24 Team Status: Active Member Role Status Dates Dr. Rishi Vasquez DO Primary Care Provider Active Start: April 23, 2025 Dr. Rishi Vasquez DO Attending Provider Active Start: April 23, 2025 Dr. Rishi Vasquez DO Referring Provider Active Start: April 23, 2025 Team Status: Inactive Member Role Status Dates Dr. Rishi Vasquez DO Primary Care Provider Active Start: April 27, 2025 End: April 27, 2025 Dr. Ciaran Renee MD Attending Provider Active Start: April 27, 2025 End: April 27, 2025 Dr. Ciaran Renee MD Referring Provider Active Start: April 27, 2025 End: April 27, 2025 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 Relationship Specialty Start Date End Date Rishi Vasquez DO [address] [place], [place] [id number] PCP - General Family Medicine 03/26/13 [facility] PROGRAMS DIRECTOR.SHOEMAKING FINISHER [address] [place], [place] [id number] [facility] 10/26/24 Team Status: Active Member Role Status Dates Dr. Rishi Vasquez DO Primary Care Provider Active Start: April 20, 2025 Dr. Russell Clement MD Attending Provider Active S tart: April 20, 2025 LILLIAM Gilmore Referring Provider Active Star t: April 20, 2025 Team Status: Inactive Member Role Status Dates Dr. Rishi Vasquez DO Primary Care Provider Active Start: May 07, 2025 End: May 07, 2025 Dr. Rishi Vasquez DO Referring Provider Active Start: May 07, 2025 End: May 07, 2025 Rick Bergeron TECHNICAL REPORT WRITER, TECHNICAL REPORT WRITER-C Attending Provider Active S tart: May 07, 2025 End: May 07, 2025 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 Relationship Specialty Start Date End Date Rishi Vasquez DO [address] [place], [place] [id number] PCP - General Family Medicine 03/26/13 [facility], PROGRAMS DIRECTOR.SHOEMAKING FINISHER [address] [place], [place] [id number] [facility] 10/26/24 Fouzia Escobedo, PROGRAMS DIRECTOR.SHOEMAKING FINISHER [address] [place], [place] [id number] [facility] 05/04/25 INFORMATION SOURCE (unrecogn ized section and content) DATE CREATED AUTHOR 05/03/2025 [facility] DATE CREATED AUTHOR AUTHOR'S CARLO RUGGIERO 05/07/[address] [facility] FOR RECORDS PERTAINING TO PATIENTS WHO ARE OR HAVE BEEN ENROLLED IN A CHEMICAL DEPENDENCY/SUBSTANCEABUSE PROGRAM, SOME INFORMATION MAY BE OMITTED. This clinical summary was aggregated from multiple sources. Caution should be exercised in using it in the provision of clinical care. This summary normalizes information from multiple sources, and as a consequence, information in this document may materially change the coding, format and clinical context of patient data. In addition, data may be omitted in some cases. CLINICAL DECISIONS SHOULD BE BASED ON THE PRIMARY CLINICAL RECORDS. [employer] provides no warranty or guarantee of the accuracy or completeness of information in this document.
--- NOTE | 2025-05-11 08:28 | STRESSREP_ITS ---
Stress Test Report Date: 05/08/2025 Procedure: Pharmacologic stress nuclear imaging study Indications: Coronary artery disease/preop evaluation Consent: Per the patient Procedure: The patient underwent pharmacologic (Regadenoson 0.4mg ) evaluation with a peak heart rate of 85 beats per minute (57%predicted maximal heart rate) and a peak blood pressure of 122/54 mmHg. The baseline ECG demonstrated sinus rhythm with nonspecific ST-T wave changes. The peak pharmacologic ECG was nondiagnostic secondary to baseline abnormalities. There were no cardiac dysrhythmias pretest, during pharmacologic infusion, or recovery. There was no complaint of chest discomfort during pharmacologic infusion or recovery. The patient was injected with 12.0 millicuries of technetium 99m Cardiolite and subsequently rest SPECT Cardiolite nuclear imaging was obtained in the horizontal long, vertical long, and short axis views. The patient underwent pharmacologic (Regadenoson) evaluation. The patient was injected with 36.0 millicuries of technetium 99m Cardiolite and subsequently stress SPECT Cardiolite nuclear imaging was obtained in the horizontal long, vertical long, and short axis views. A gated Cardiolite study at peak stress was obtained. The examination was stopped secondary to completion of protocol. Rest and stress SPECT Cardiolite nuclear imaging status post realignment, normalization, and attenuation correction demonstrate reduced perfusion of the inferolateral wall at rest which is minimally exaggerated post pharmacological stress. The gated study show mild inferior hypokinesis. The reported LVEF is 55%. Impression: 1. Pharmacologic (Regadenoson) evaluation 2. Peak pharmacologic ECG with no diagnostic changes. 3. There were no cardiac dysrhythmias pretest, during pharmacologic infusion, or recovery. 5. Resting hypoperfusion of the inferior lateral wall consistent with nontransmural infarct with mild will-infarct ischemia. 6. The gated Cardiolite study reports an LVEF of 55%. This note was generated with [employer] software. It may contain incorrect words, spelling, and punctuation that were not noted in checking the note before signing.
== END | disposition home or self-care (01) ==
LOC: CVS 07:11
PROVIDERS: PCP Student in an Organized Health Care Education/Training Program; Referring Provider Internal Medicine Cardiovascular Disease; Visit Provider Internal Medicine Cardiovascular Disease
DX: Z01.810 Encounter for preprocedural cardiovascular examination (principal); E11.65 Type 2 diabetes mellitus with hyperglycemia; I25.10 Atherosclerotic heart disease of native coronary artery without angina pectoris; Z98.890 Other specified postprocedural states; I73.9 Peripheral vascular disease, unspecified
CPT/HCPCS: 78452; 93017; A9500; A4216; J2785

== ENCOUNTER 2025-05-17 21:40 | Inpatient (IN) | payer MEDICARE, SELFPAY ==
[2025-05-17 21:40] VITALS: BP 118/52; PULSE 71; RESP 18; TEMP 36.6; O2SAT 96; BMI 25.9
[2025-05-17 22:05] VITALS: TEMP 38
[2025-05-17] MEDS: 0.9% Normal Saline (1000mL) 1,000 ML 150 ML IV (22:21)
--- NOTE | 2025-05-17 22:22 | EDS_ITS ---
HPI History of Present Illness Chief Complaint: Fall Detail of Chief Complaint: Weakness Narrative Narrative: Patient presents to the emergency department complaint of generalized weakness. Patient states that having a hard time ambulating today due to the weakness. Patient tells me she fell yesterday when she came into the house around 11:15 AM because her right leg gave out. She was found by her brother at 9 PM in the evening and helped her to a chair along with a neighbor. Patient apparently slept in a chair last evening and this morning was ambulatory but then this evening sat on the toilet and could not get back up. EMS was called. Patient was noted to have a fever. She denies cough or sore throat. She denies abdominal pain. She has had no vomiting or diarrhea. She denies dysuria urgency or frequency. She is a diabetic and has chronic wounds to both lower extremities. She is currently on an antibiotic due to some erythema to the left foot wounds that was noted by visiting nurse last week and she was started on antibiotics by her cold type artist Dr. Irene. Patient unsure the name of the antibiotic. 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 Other specified peripheral vascular diseases Chronic painful diabetic polyneuropathy MRSA (methicillin resistant staph aureus) culture positive Depression Diabetes Back pain Vertigo History of pain when walking Hypertension Arthritis Wears dentures Post-menopausal Low iron High cholesterol Easy bruising Neuropathy Dietary restriction Former smoker Cardiology follow-up encounter History of torn meniscus of left knee Carotid artery stenosis Essential hypertension Skin lesion Hammer toe of left foot Osteomyelitis Chronic kidney disease, stage 3 Atherosclerosis of coronary artery of [place] heart without angina pectoris Hyperlipidemia Peripheral vascular occlusive disease Hammer toe of second toe of left foot Hallux valgus (acquired), right foot Healed ulcer of left foot on examination Chronic ulcer of left foot with fat layer exposed Delayed wound healing Malnutrition Osteomyelitis of foot 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 Methicillin resistant Staphylococcus aureus infection Chronic osteomyelitis of left foot Non-healing ulcer of right foot DM2 (diabetes mellitus, type 2) Home Medications ?Medication ?Instructions ?Recorded ?Last Taken ?Type aspirin 81 mg tablet,delayed 81 mg PO QHS blood clots 01/13/14 04/14/25 History release multivitamin with folic acid 400 1 tab PO DAILY Supple ment 01/13/14 11/14/16 History mcg tablet omega-3 fatty acids-fish oil 340 1 ea PO DAILY supplem ent 06/29/16 08/27/16 History mg-1,000 mg capsule ferrous sulfate 325 mg (65 mg 325 mg PO DAILY SUPPLEME NT 08/15/18 03/08/25 History iron) tablet ascorbic acid (vitamin C) 500 mg 1,000 mg PO LUNCH Sup plement 11/25/20 03/11/25 11:50 History tablet calcium carbonate (Calcium 600) 600 mg PO DAILY supple ment 12/29/21 Unknown History clopidogrel 75 mg tablet 75 mg PO DAILY Blood clots # 90 tabs 10/23/24 04/15/25 R x Lactobacillus acidophilus 600 mg PO QDAY gi 03/07/25 0 03/11/25 09:00 History (Acidophilus capsule) pregabalin 100 mg capsule 100 mg PO TID nerve pain 03/11/25 11:50 History simvastatin 20 mg tablet 20 mg PO QHS cholesterol #30 tabs 03/23/25 Unknown Rx nystatin 100,000 unit/gram topical 1 applic topical BI D PRN rash 05/07/25 Unknown History powder ([facility]) acetaminophen 650 mg 650 mg PO Q12H PRN pain 04/20 Unknown History tablet,extended release amlodipine 5 mg tablet 5 mg PO DAILY HTN #90 tabs 0 05/12/25 Unknown Rx metoprolol succinate 25 mg 12.5 mg (1/2 x 25 mg) PO DA FABIAN 05/12/25 Unknown Rx tablet,extended release 24 hr HEART RATE #45 tabs glimepiride 2 mg tablet 2 mg PO BID 05/18/25 Unknown History Allergy/AdvReac Type Severity Reaction Status Date / Time Sulfa (Sulfonamide Allergy Unknown Verified 05/17/25 21:44 Antibiotics) Family History Father CAD (coronary artery disease) Heart disease Hypertension CVA (cerebral vascular accident) Mother COPD (chronic obstructive pulmonary disease) Hypertension Heart disease Heart failure Surgical History History of cardiac catheterization History of colonoscopy History of foot surgery History of repair of left rotator cuff History of total left knee replacement (~2014) History of angioplasty of peripheral vessel (~2012) amputation left toe History of left heart catheterization (~01/20/14) Social History household members: none Smoking Status: Former smoker how long ago did patient quit smokin years ago alcohol intake: never substance use type: does not use caffeine: No ROS ROS ED Review of Systems ROS Unobtainable: other Constitutional Constitutional ED: Reports fever(s) and lethargy; Denies chills, sweats or weight loss Eyes Eyes: Denies blurry vision, change in vision or diplopia ENT ENT ED: Denies rhinorrhea or sore throat Cardiovascular Cardiovascular: Denies chest pain, orthopnea or racing heartbeat Respiratory/Chest Respiratory/Chest: Denies cough, dyspnea, dyspnea on exertion, orthopnea or sputum Gastrointestinal Gastrointestinal: Denies abdominal pain, diarrhea, nausea or vomiting Genitourinary Genitourinary ED: Denies dysuria, hematuria or urinary frequency Musculoskeletal Musculoskeletal: Denies arthralgias, back pain, myalgias or neck pain Integumentary Reports other Details: Chronic wounds bilateral feet ; Denies abscess, Abrasions or rash Neurologic Neurologic: Reports other Details: Generalized weakness ; Denies headache(s) or weakness Psychiatric Psychiatric: Denies anxiety, depression or suicidal thoughts Endocrine Endocrinology: Denies polydipsia, polyphagia or polyuria Hematologic/Lymphatic Hematologic/Lymphatic: Denies easy bleeding, easy bruising or lymphadenopathy Allergic/Immunologic Allergic/Immunologic ED: Denies mouth swelling, tongue swelling or urticaria EXAM Physical Exam Const Vital Signs: 05/17/25 21:40 05/17/25 22:02 05/17/25 22:05 Temperature 97.9 F 100.4 F H Temperature Source Temporal Oral Pulse Rate 71 Respiratory Rate 18 Respiratory Effort Normal Respiratory Depth Normal Respiratory Pattern Normal Blood Pressure 118/52 L Blood Pressure Mean 74 Pulse Ox 96 Oxygen Delivery Method Room Air Room Air 05/18/25 00:00 Temperature Temperature Source Pulse Rate 100 Respiratory Rate 23 H Respiratory Effort Respiratory Depth Respiratory Pattern Blood Pressure 118/51 L Blood Pressure Mean 73 Pulse Ox 100 Oxygen Delivery Method Room Air Positive well nourished and well developed General Appearance ED: well developed and NAD HEENT Reports TM's clear and moist mucous membranes normocephalic and atraumatic; Negative for trauma or tenderness Tympanic Membrane ED: Yes TM's clear Eyes PERRL and EOMs intact bilaterally General Eye ED: Negative for pale conjunctiva or scleral icterus Neck no lymphadenopathy, supple and no JVD General: Negative for tenderness Chest Wall inspection of chest normal and palpation of chest normal Chest: Negative for tenderness Resp normal respiratory effort and clear to auscultation bilaterally Effort and Inspection: Negative for respiratory distress or pain with movement Auscultation: Negative for rhonchi, wheezes or diminished lung sounds Cardio regular rate, regular rhythm, S1 normal heart sound, S2 normal heart sound and no murmurs Peripheral Pulses: pulses 2+ throughout GI normal to inspection, nondistended, normoactive bowel sounds, soft to palpation, non-tender, non-distended and no masses Back/Spine no CVA tenderness and no thoracic nor lumbar tenderness Extremity Extremity Narrative: Patient with chronic wounds to both lower extremities specifically the feet. She has chronic appearing wound to the left heel as well as medial malleolus with some faint erythema noted. There was a foul odor noted. Patient also with chronic wound to the right heel however there is no erythema or odor from this wound. Patient has multiple missing toes to the left foot from prior amputations. General Extremety ED: Negative for edema General Extremity: Negative for edema Neuro oriented x3, CN's II-XII intact bilaterally, no sensory deficits noted and gait normal Sensorium / Orientation: awake, alert, oriented to person, oriented to place and oriented to time Motor Exam: strength 5/5 throughout and strength abnormal Psych mental status grossly normal Skin no rashes or lesions noted and no wounds MDM MDM MDM Narrative Medical decision making narrative: Patient presents with generalized weakness as well as fever. Difficulty ambulating at this time. She had a fall recently. History of diabetic foot wounds. IV line established. Blood cultures ordered. CBC with differential white count 7.1 with hemoglobin 8.9 and platelet count of 162. Chemistries with sodium 131 and potassium 4.7. BUN 78 and creat 1.96. Glucose was 253. Lactate less than 1. Total CPK was 1 1177. Minimal elevation in the LFTs with an AST of 83 and ALT of 36. Urinalysis positive for infection. Urine culture sent. Patient started on Rocephin and vancomycin IV. I did obtain x-rays of the left foot that showed possible osteomyelitis fourth metatarsal head. She had diffuse soft tissue swelling and cellulitic changes. 1 view chest x-ray was unremarkable. Case will be discussed with hospitalist to evaluate patient for admission Lab Data Attestation: I reviewed the patient's lab results. Labs: Laboratory Results - last 24 hr 05/17/25 05/17/25 05/18/25 21:53 22:33 00:50 WBC 7.1 RBC 3.07 L Hgb 8.9 L Hct 27.7 L MCV 90.2 MCH 29.0 MCHC 32.1 RDW Std Deviation 50.8 H RDW Coeff of Jorgito 15.3 H Plt Count 162 MPV 11.3 Immature Gran % (Auto) 0.600 Neut % (Auto) 80.8 H Lymph % (Auto) 7.4 L Mckean % (Auto) 10.6 H Eos % (Auto) 0.0 Baso % (Auto) 0.6 Absolute Neuts (auto) 5.7 Absolute Lymphs (auto) 0.52 L Nucleated RBC % 0 Sodium 131 L Potassium 4.7 Chloride 97 L Carbon Dioxide 17.5 L Anion Gap 16 H BUN 78 H Creatinine 1.96 H Estim Creat Clear Calc 26.13 L Est GFR (MDRD) Non-Af 27 L BUN/Creatinine Ratio 39.9 H Glucose 253 H Lactic Acid < 1.0 Calcium 9.2 Total Bilirubin 0.45 AST 83 H ALT 36 H Alkaline Phosphatase 54 Total Creatine Kinase 1177 H Total Protein 6.3 Albumin 2.9 L Globulin 3.4 Albumin/Globulin Ratio 0.8 L Urine Color Yellow Urine Clarity Cloudy Urine pH 5.0 Ur Specific [place] 1.020 Urine Protein 100 H Urine Glucose (UA) Normal Urine Ketones 5 H Urine Occult Blood 250 H Urine Nitrite Negative Urine Bilirubin Negative Urine Urobilinogen Normal Ur Leukocyte Esterase 500 H Urine RBC 0 SEEN Urine WBC >100 SEEN Ur Squamous Epith Cells 0-5 SEEN Urine Bacteria 3+ Urine Mucus 0 SEEN Radiography Diagnostic Testing: Clinical Impression(s) from Imaging Studies Chest X-Ray 05/17/25 22:35 IMPRESSION: No acute chest findings. Reading Location: [facility] Foot X-Ray 05/17/25 22:35 IMPRESSION: Possible osteoarthritis, 4th metatarsal head. Soft tissue swelling, without obvious soft tissue gas. Possible cellulitis. Reading Location: [place] [address] Discharge Plan Triage Chief Complaint: Fall ED Provider: Jerri Castillo Dx/Rx/DC Orders Clinical Impression: Weakness, SHAYY (acute kidney injury), Acute UTI, Dehydration, Acute osteomyelitis of left foot Prescriptions: No Action calcium carbonate [Calcium 600] 600 mg calcium (1,500 mg) tablet 600 mg PO DAILY nystatin [Nyamyc] 100,000 unit/gram powder 1 applic topical BID PRN (Reason: rash) Protocol: *Topical Application Instructions APPLICATION INSTRUCTIONS: apply to abdominal folds, under breasts aspirin 81 MG tablet 81 mg PO QHS multivitamin with folic acid 1 TABLET tablet 1 tab PO DAILY Patient Comments: vitamin supplement ascorbic acid (vitamin C) 500 mg tablet 1,000 mg PO LUNCH Patient Comments: supplement omega-3 fatty acids-fish oil 1 EACH capsule 1 ea PO DAILY Patient Comments: supplement ferrous sulfate 325 MG tablet 325 mg PO DAILY pregabalin 100 mg capsule 100 mg PO TID Acidophilus Capsule 600 mg PO QDAY acetaminophen 650 mg tablet extended release 650 mg PO Q12H PRN (Reason: pain) glimepiride 2 mg tablet 2 mg PO BID clopidogrel 75 mg tablet 75 mg PO DAILY Qty: 90 3RF Patient Comments: ask about stopping simvastatin 20 mg tablet 20 mg PO QHS Qty: 30 11RF amlodipine 5 mg tablet 5 mg PO DAILY Qty: 90 3RF metoprolol succinate 25 mg tablet extended release 24 hr 12.5 mg PO DAILY Qty: 45 3RF Primary Care Provider: Rishi Vasquez Referrals: Rishi Vasquez DO [Primary Care Provider] - Print Language: Romanian Disposition Disposition: Acute Care Hospital [facility]
[2025-05-17 22:35] LABS: Hematocrit 27.7 % (37-47); Hemoglobin 8.9 g/dL (12.0-15.0); Immature Granulocytes Count 0.040 X10^3/uL (0.0-0.0); Mean Corp Hgb Conc 32.1 g/dL (32-36); Mean Corpuscular Volume 90.2 fL (81-99); Mean Platelet Vol. 11.3 fl (6.2-12.0); NRBC Flagged by Analyzer 0 % (0-5); POSITIVE DIFFERENTIAL YES; Platelet Count 162 K/mm3 (150-450); RBC Distribution Width CV 15.3 % (11.6-14.6); RBC Distribution Width SD 50.8 fl (35.1-43.9); Red Blood Count 3.07 M/mm3 (4.2-5.4); White Blood Count 7.1 K/mm3 (4.4-11.0)
--- NOTE | 2025-05-17 22:35 | RAD_ITS ---
PROCEDURE: FOOT MIN 3 VIEWS 05/17/2025 REASON FOR EXAM: DIABETIC WOUND TECHNIQUE: FOOT MIN 3 VIEWS COMPARISON: 07/29/2021 FINDINGS: Interval amputation of the tuft of the 1st digit. Remote erosion, 1st metatarsal head. 1st digit soft tissue swelling without gas. Remote 2nd toe amputation. Remote partial 3rd digit amputation, mid proximal phalanx level. Interval development of erosive change, 4th metatarsal head, remote 4th digit amputation. Interval 5th toe amputation, with remnant 5th metatarsal base redemonstrated. Pes planus. Diffuse arterial calcifications. Dorsal soft tissue swelling. 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 Soft tissue swelling, without obvious soft tissue gas. Possible cellulitis. [facility]
--- NOTE | 2025-05-17 22:35 | RAD_ITS ---
PROCEDURE: CHEST 1 VIEW (PORTABLE) 05/17/2025 REASON FOR EXAM: FEVER TECHNIQUE: Frontal view of the chest. COMPARISON: 03/07/2025 FINDINGS: Normal heart size. Status post left shoulder surgery. Chronic right rotator cuff tear. Well inflated lungs. No consolidation, effusion, or pneumothorax. RAD/Chest 1 View (Portable) IMPRESSION: No acute chest findings. Reading Location: [place] [address]
--- OUTSIDE RECORDS SUMMARY | 2025-05-17 22:42 | XMS RPT_ITS | CCD ---
Author Organization [facility] CliniSynh Care Team Providers Care Automatic Operator Name Role Phone Ray Ochoa Unavailable Unavailable Lila PENNINGTON, Aileen Peterson Unavailable Unavailable Ray Ochoa Unavailable Unavailable Kwaku Moscoso MD Unavailable Sukumar LUNDBERG, Marly Villavicencio Unavailable Lucía BARAJAS, Rebekah Villavicencio Unavailable Gaye Jasmine Unavailable Unavailable Shaina Serna LPN Unavailable Unavailable Dr. Rishi Vasquez Primary Care Provider Dr. Rishi Vasquez Referring Provider Cebuevelyne, Dr. Kwaku Abraham Attending Provider Cedaniel, Dr. Kwaku Abraham Other Provider Roof SPECIAL POPULATION PARAPROFESSIONAL, YULY Tripathi Attending Provider Rishi Vasquez DO Primary Care Provider Dr. Rishi Vasquez Primary Care Provider Dr. Kwaku Moscoso Attending Provider Dr. Kwaku Moscoso Referring Provider Dr. Rishi Vasquez Referring Provider Rishi Vasquez DO Primary Care Provider Roof SPECIAL POPULATION PARAPROFESSIONAL, YULY Tripathi Attending Provider Dr. Rishi Vasquez Primary Care Provider CeDr. Kwaku sanchez Attending Provider Danis, Dr. Kwaku Abraham Referring Provider Dr. Rishi Vasquez Referring Provider Roof SPECIAL POPULATION PARAPROFESSIONAL, SPECIAL POPULATION PARAPROFESSIONALFavio Tripathi Attending Provider Dr. Rishi Vasquez Primary Care Provider Dr. Rishi Vasquez Referring Provider Dr. Russell Clement Attending Provider Rishi Vasquez DO Primary Care Provider Pedro, Dr. Blackwell Primary Care Provider Dr. Brandon Membreno Referring Provider Pedro, Dr. Blackwell Primary Care Provider Dr. Russell Clement Attending Provider Dr. Brandon Membreno Referring Provider Vasquez, Dr. Blackwell Primary Care Provider Vasquez, Dr. Blackwell Referring Provider Roof SPECIAL POPULATION PARAPROFESSIONAL, SPECIAL POPULATION PARAPROFESSIONALFavio Tripathi Attending Provider CeDr. Kwaku sanchez Attending Provider Danis, Dr. Kwaku Abraham Referring Provider Dr. Rishi Vasquez Primary Care Provider Dr. Rishi Vasquez Referring Provider VasquezDr. Rishi linda Primary Care Provider VasquezDr. Rishi linda Referring Provider Dr. Kwaku Moscoso Attending Provider Dr. Rishi Vasquez Primary Care Provider Dr. Rishi Vasquez Referring Provider Dr. Ciaran Jacobo Attending Provider Rishi Vasquez DO Primary Care Provider Dr. Elyssa Fierro Attending Provider Dmitry SPIDER ASSEMBLER.Clary FLORES Unavailable Violeta CROSS.Dillon FLORES Unavailable Dr. Rishi Vasquez DO Primary Care Provider Pedro DO, Dr. Blackwell Attending Provider Pedro EUCEDA, Dr. Blackwell Referring Provider Hull DPM, Dr. Taylor Attending Provider Haseeb DPM, Dr. Taylor Referring Provider Irene DPM, [...] EUCEDA, Dr. Blackwell Primary Care Provider [phone] Pedro DO, Dr. Blackwell Attending Provider Pedro EUCEDA, Dr. Blackwell Referring Provider Shonda LUNDBERG, Dr. Maddie Lawrence Other Provider Irene DPM, Dr. Sweeney Other Provider Chantal LUNDBERG, Dr. Mendez Other Provider Urbano LUNDBERG, Dr. Wells Other Provider Ke LUNDBERG, Dr. Villafana Attending Provider Kelly LUNDBERG, Dr. Ames Other Provider Ke LUNDBERG, Dr. Villafana Other Provider Abena Baxter Attending Provider Servando LUNDBERG, Dr. Phong Benítez Admit Provider Servando LUNDBERG, Dr. Phong Benítez Attending Provider Servando LUNDBERG, Dr. Phong Benítez Referring Provider Fiore PA, Abena Other Provider Servando LUNDBERG, Dr. Phong Benítez Other Provider Urbano LUNDBERG, Dr. Wells Referring Provider 1([facility])[phone] Pedro EUCEDA, Dr. Blackwell Primary Care Provider Pedro EUCEDA, Dr. Blackwell Attending Provider Pedro EUCEDA, Dr. Blackwell Referring Provider 1([facility] )[phone] Haseeb DPM, Dr. Taylor Attending Provider Haseeb DPM, Dr. Taylor Referring Provider Pedro EUCEDA, Dr. Blackwell Primary Care Provider [phone] Pedro EUCEDA, Dr. Blackwell Attending Provider Pedro DO, Dr. Blackwell Referring Provider Macarena VYAS, Abena Referring Provider 1([facility])[phone] Pedro EUCEDA, Dr. Blackwell Primary Care Provider [phone] Teto MOHAMUD, Dr. Sweeney Attending Provider Víctor LUNDBERG, Dr. Wagoner Attending Provider Víctor LUNDBERG, Dr. Wagoner Referring Provider 1([facility])[phone] Pedro EUCEDA, Dr. Blackwell Primary Care Provider [phone] Urbano LUNDBERG, Dr. Wells Attending Provider 1([facility])[phone] [facility] SPECIAL POPULATION PARAPROFESSIONAL-CRick Attending Provider 1([facility])[phone] Chandra SPIDER ASSEMBLER.AUTOMOTIVE BUYER, Fouzia Reis Unavailable VASQUEZ, RISHI L Primary Care Unavailable VASQUEZ, RISHI L Attending Unavailable VASQUEZ, RISHI L Primary Care Unavailable VASQUEZ, RISHI L Referring Unavailable VASQUEZ, RISHI L Primary Care Unavailable CLARY ANDRES Referring Unavailabl e RISHI VASQUEZ L Primary Care Unavailable FOUZIA ESCOBEDO Attending Unavailable VASQUEZ, RISHI L Primary Care Unavailable YUMIKO WHITEHEAD Attending Unavailable VASQUEZ, RISHI L Primary Care Unavailable VASQUEZ, RISHI L Attending Unavailable VASQUEZ, RISHI L Primary Care Unavailable VASQUEZ, RISHI L Referring Unavailable VASQUEZ, RISHI L Primary Care Unavailable Kb LUNDBERG, Dr. Wheat Attending Provider Kb LUNDBERG, Dr. Wheat Referring Provider Kb LUNDBERG, Dr. Wheat Other Provider Pedro EUCEDA, Dr. Blackwell Primary Care Provider Pedro EUCEDA, Dr. Blackwell Attending Provider Pedro EUCEDA, Dr. Blackwell Referring Provider Jamal DPM, Dr. Wagoner Attending Provider Jamal DPM, Dr. Wagoner Referring Provider Irene DPM, Dr. Sweeney Attending Provider Irene DPM, Dr. Sweeney Referring Provider Le DO, Dr. Orellana Emergency Provider Shonda LUNDBERG, Dr. Maddie Lawrence Admit Provider Shonda LUNDBERG, Dr. Maddie Lawrence Referring Provider Shonda LUNDBERG, Dr. Maddie Lawrence Other Provider Teto DPM, Dr. Sweeney Other Provider Chantal LUNDBERG, Dr. Mendez Other Provider Urbano LUNDBERG, Dr. Wells Other Provider Ke LUNDBERG, Dr. Villafana Attending Provider Kelly LUNDBERG, Dr. Ames Other Provider Urbano LUNDBERG, Dr. Wells Attending Provider Ke LUNDBERG, Dr. Villafana Other Provider Abena Baxter Attending Provider Servando LUNDBERG, Dr. Phong Benítez Admit Provider Servando LUNDBERG, Dr. Phong Benítez Attending Provider Servando LUNDBERG, Dr. Phong Benítez Referring Provider Abena Baxter Other Provider Servando LUNDBERG, Dr. Phong Benítez Other Provider Urbano LUNDBERG, Dr. Wells Referring Provider [phone] Macarena VYAS, Abena Referring Provider Víctor LUNDBERG, Dr. Wagoner Attending Provider Víctor LUNDBERG, Dr. Wagoner Referring Provider [facility] Rick EMERY Attending Provider Kb LUNDBERG, Dr. Wheat Attending Provider Kb LUNDBERG, Dr. Wheat Referring Provider Kb LUNDBERG, Dr. Wheat Other Provider Vasquez, Rishi Primary Care Unavailable Fiore, Abena Referring Unavailable Fiore, Abena Attending Unavailable Vasquez, Rishi Referring Unavailable Vasquez, Rishi Attending Unavailable Vasquez, Rishi Primary Care Unavailable Irene, Patel Attending Unavailable Vasquez, Rishi Primary Care Unavailable Vasquez, Rishi Primary Care Unavailable Kelly, Kwkau Consulting Unavailable Servando, Phong Chi Attending Unavailable Servando, Phong Chi Referring Unavailable Servando, Phong Chi Admitting Unavailable Irene, Patel Consulting Unavailable Fiore, Abena Consulting Unavailable Vasquez, Rishi Primary Care Unavailable Haseeb, Brandon Referring Unavailable HaseebJeremyel Attending Unavailable Vasquez, Rishi Primary Care Unavailable Urbano, Russell Attending Unavailable Urbano, Russell Referring Unavailable Urbano, Russell Admitting Unavailable Vasquez, Rishi Primary Care Unavailable White, Maddie L Admitting Unavailable Irene, Patel Consulting Unavailable Broderick Dempsey Attending Unavailable White, Maddie L Referring Unavailable Tanphaichitr, Natthavat Consulting Unavaila ble [place], Russell Consulting Unavailable White, Maddie L Consulting Unavailable Kelly, Kwaku Consulting Unavailable Vasquez, Rishi Primary Care Unavailable [place], Russell Attending Unavailable Fiore, Abena Referring Unavailable Prayson, Curtis Referring Unavailable Vasquez, Rishi Primary Care Unavailable Don Francoolas Attending Unavailable Ciaran Berry Referring Unavailable Ciaran Berry Attending Unavailable Vasquez, Rishi Primary Care Unavailable Vasquez, Rishi Primary Care Unavailable Servando, Phong Chi Referring Unavailable Servando, Phong Chi Attending Unavailable Vasquez, Rishi Primary Care Unavailable Jarret Quiles Attending Unavailable Jarret Quiles Referring Unavailable Prayson, Curtis Referring Unavailable Vasquez, Rishi Primary Care Unavailable Prayson, Curtis Attending Unavailable Vasquez, Rishi Primary Care Unavailable Vasquez, Rishi Attending Unavailable Vasquez, Rishi Referring Unavailable Vasquez, Rishi Primary Care Unavailable Vasquez, Rishi Referring Unavailable Vasquez, Rishi Attending Unavailable Vasquez, Rishi Primary Care Unavailable Patel Irene Attending Unavailable Patel Irene Referring Unavailable Vasquez, Rishi Primary Care Unavailable Ungur, Remus Attending Unavailable Ungur, Remus Referring Unavailable Vasquez, Rishi Primary Care Unavailable Vasquez, Rishi Referring Unavailable Vasquez, Rishi Attending Unavailable Vasquez, Rishi Primary Care Unavailable Vasquez, Rishi Attending Unavailable Vasquez, Rishi Referring Unavailable Vasquez, Rishi Primary Care Unavailable Vasquez, Rishi Attending Unavailable Vasquez, Rishi Referring Unavailable Vasquez, Rishi Primary Care Unavailable Urbano, Russell Attending Unavailable [place], Russell Admitting Unavailable Vasquez, Rishi Primary Care Unavailable White, Maddie L Admitting Unavailable White, Maddie L Consulting Unavailable White, Maddie L Attending Unavailable White, Maddie L Referring Unavailable Vasquez, Rishi Primary Care Unavailable Ciaran Renee Referring Unavailable Ciaran Renee Attending Unavailable Teto Patel Consulting Unavailable Ke, Broderick Attending Unavailable Tanphaichitr, Natthavat Consulting Unavaila ble Urbano, Russell Consulting Unavailable Urbano, Russell Attending Unavailable Kelly, Kwaku Consulting Unavailable Ke, Broderick Consulting Unavailable Vasquez, Rishi Primary Care Unavailable Fiore, Abena Attending Unavailable Kelly, Kwaku Consulting Unavailable Servando, Phong Chi Referring Unavailable Servando, Phong Chi Admitting Unavailable Patel Irene Consulting Unavailable Fiore, Abena Consulting Unavailable Servando, Phong Chi Consulting Unavailable Vasquez, Rishi Primary Care Unavailable Urbano, Russell Attending Unavailable Urbano, Russell Referring Unavailable Urbano, Russell Consulting Unavailable Fiore, Abena Attending Unavailable Brandon Membreno Referring Unavailable Urbano, Russell Attending Unavailable Vasquez, Rishi Primary Care Unavailable Vasquez, Rishi Primary Care Unavailable Fiore, Abena Attending Unavailable Vasquez, Rishi Referring Unavailable Vasquez, Rishi Primary Care Unavailable Vasquez, Rishi Referring Unavailable Roof Rick BARAJAS Attending Unavailable Vasquez, Rishi Primary Care Unavailable Macarena, Abena Attending Unavailable Vasquez, Rishi Referring Unavailable Vasquez, Rishi Primary Care Unavailable Jarret Quiles Attending Unavailable Jarret Quiles Referring Unavailable Kb, Jarret Consulting Unavailable Vasquez, Rishi Primary Care Unavailable Brandon Membreno Referring Unavailable Brandon Membreno Attending Unavailable Vasquez, Rishi Referring Unavailable Vasquez, Rishi Attending Unavailable Vasquez, Rishi Primary Care Unavailable Vaqsuez, Rishi Referring Unavailable Vasquez, Rishi Attending Unavailable Vasquez, Rishi Primary Care Unavailable Vasquez, Rishi Primary Care Unavailable Vasquez, Rishi Attending Unavailable Vasquez, Rishi Referring Unavailable Vasquez, Rishi Referring Unavailable Vasquez, Rishi Primary Care Unavailable Vasquez, Rishi Attending Unavailable Vasquez, Rishi Primary Care Unavailable Vasquez, Rishi Attending Unavailable Vasquez, Rishi Referring Unavailable Vasquez, Rishi Primary Care Unavailable Vasquez, Rishi Referring Unavailable Vasquez, Rishi Attending Unavailable Vasquez, Rishi Primary Care Unavailable Vasquez, Rishi Attending Unavailable Vasquez, Rishi Referring Unavailable Vasquez, Rishi Primary Care Unavailable Russell Clement Attending Unavailable Russell Clement Referring Unavailable Allergies Allergy Classification Reported Allergen(s) Allergy Type Date of Onset Reaction(s) Facility Sulfonamides (antibiotic) (1 source) Sulfonamides (Antibiotic) Drug Allergy 3 Unknown [facility] (10 sources) Sulfonamides (Antibiotic) drug allergy 4 [facility] Work Phone: (20 sources) Sulfonamides (Antibiotic); Translations: [SULFA (SULFONAMIDE ANTIBIOTICS)] Drug Allergy 3 Unknown [facility] (20 sources) Sulfonamides (Antibiotic) Allergy to substance 2 Unknown [facility] Comment on above: doesn't remember/ al darlenegy noted as a child (1 source) Sulfonamides (Antibiotic) Drug allergy (disorder) 5 [facility] Repository Medications Current Medications Medication Drug Class(es) Dates Sig (Normalized) Sig (Original) 8 hr acetaminophen 650 mg extended release oral tablet (20 sources) Start: 05-08-2025 Start: 03-17-2025 take 2 tablets by [facility] every six hours as needed for pain Acetaminophen 500 mg Tablet Active 1000 mg PO EVERY 6 HOURS NEEDED as needed for Pain Score 1-10 0 March 17, 2025 12:00am Start: 03-11-2025 End: 03-17-2025 Start: 12-29-2021 End: 03-07-2025 Start: 12-29-2021 End: 03-07-2025 take 1 capsule by mouth once as needed for pain Acetaminophen (Tylenol) 325 mg capsule Discontinued 325 mg PO ONCE as needed for Pain December 29, 2021 1:00am March 07, 2025 4:02pm Start: 08-30-2017 TYLENOL CAPS a s needed ACETAMINOPHEN CAPS [id number] Kwaku Moscoso MD Start: 09-22-2016 End: 11-22-2016 TYLENOL CAPS as needed 09/22 ACETAMINOPHEN CAPS [id number] Espinoza Hancockr MA Start: 09-22-2016 TYLENOL CAPS a s needed ACETAMINOPHEN CAPS [id number] Espinoza S Grant MA Start: 09-22-2016 End: 11-22-2016 TYLENOL CAPS as needed 09/22 ACETAMINOPHEN CAPS [id number] Espinoza S Grant MA Start: 09-22-2016 TYLENOL CAPS a s needed ACETAMINOPHEN CAPS [id number] Espinoza Hancockr MA take 2 tablets by mo [facility] every six hours as needed acetaminophen (TYLENOL) 325 mg tablet Take 650 mg by mouth every 6 hours as needed. Active Comment on above: Take 650 mg by mouth every 6 hours as needed. amLODIPine 5 mg oral tablet (20 sources) Dihydropyridine Calcium Channel Diana Start: 03-17-2025 End: 05-12-2025 Start: 01-28-2021 End: 03-17-2025 Start: 01-27-2019 End: 10-05-2020 Start: 01-13-2014 End: 07-29-2018 take 2 tablets by mouth once daily Amlodipine 5 MG tablet Discontinued 10 mg PO DAILY January 13, 2014 1:00am July 29, 2018 11:18am Start: 01-13-2014 End: 07-29-2018 take 10 mg by mouth once daily Amlodipine Discontinued 10 MG PO DAILY January 13, 2014 1:00am July 29, 2018 11:18am Start: 01-05-2014 End: 06-04-2024 Start: 01-05-2014 [facility] NORVASC 10 MG TABS One tablet by mouth daily AMLODIPINE BESYLATE [id number] Ira Lopez PA-C Comment on above: Take 1 [...] LUNCH November 25, 2020 10:32am Start: 01-05-2014 Comment on above: Take 1 tablet by paolo th once daily. aspirin 81 mg delayed releas e oral tablet (20 sources) Platelet Aggregation Inhibitor, Nonsteroidal Anti-inflammatory Drug Start: 01-05-2014 Start: 01-05-2014 take 1 tablet by paolo th once daily ASPIRIN 81 MG TABS One tablet by mouth daily ASPIRIN [id number] Carole Cheng Shirlene PENNINGTON Start: 06-30-2013 take 1 tablet by paolo th once daily at mealtime Aspirin 81 mg Tab Take 1 tablet by mouth once daily. Take with food. 30 tablet 06/30/2013 Active Comment on above: Take 1 tablet by paolo th once daily. Take with food. Blood Pressure [...] mg oral tablet (20 sources) Start: 2 cephalexin 500 mg oral capsule (2 sources) Cephalosporin Antibacterial Start: 2 End: 2 take 1 capsule by mouth twice daily cephALEXin (KEFLEX) 500 mg capsule Take 1 capsule by mouth twice daily for 7 days. 14 capsule 0 09/23/2022 09/30/2022 Active Comment on above: Take 1 capsule by mo [facility] twice daily for 7 days. Cranberry Extract (20 sources) Non-Standardized Food Allergenic Extract, Non-Standardized Plant Allergenic Extract Start: 2 Start: 08-08-2022 take 1 capsule by mo uth at dinner Cranberry Extract 500 mg capsule Active 500 mg PO WITH DINNER August 08, 2022 9:41am Start: 08-08-2022 take 500 mg by mouth at dinner Cranberry Extract Active 500 MG PO WITH DINNER August 08, 2022 8:41am Start: 08-08-2022 take 500 mg by mouth at dinner Cranberry Extract Active 500 MG PO WITH DINNER August 08, 2022 9:41am Start: 10-05-2020 End: 08-08-2022 Start: 10-05-2020 End: 08-08-2022 take 1 capsule [...] 05, 2020 2:18pm Start: 06-29-2016 End: 10-05-2020 Start: 06-29-2016 End: 10-05-2020 take 1 capsule [...] CRANBERRY CAPS Cranberry Extract daily CRANBERRY CAPS [id number] Brandon Ch MD Start: 11-25-2014 Cranberry Extr act 300 mg tab Take by mouth. 0 11/25/2014 Active Comment on above: Take by mouth. ferrous sulfate 325 mg oral tablet (20 sources) Start: 08-15-2018 take 1 tablet by mouth once daily Ferrous Sulfate 325 MG tablet Active 325 mg PO DAILY August 15, 2018 12:00am Start: 08-30-2017 take 1 tablet by paolo th twice daily FERROUS SULFATE 325 (65 Fe) MG TABS One tablet by mouth twice daily FERROUS SULFATE [id number] Kwaku Moscoso MD Comment on above: Take 325 mg by mouth daily with breakfast. glipiZIDE er 5 mg 24 hr extended release oral tablet (10 sources) Sulfonylurea Start: End: take 1 tablet by mouth twice daily [...] 04/30/2025 04/30/2025 Discontinued Start: 04-10-2025 End: 10-07-2025 lactobacillus acidophilus 600 mg oral capsule (8 sources) Start: 03-07-2025 take 1 capsule by [...] with a meal 24 hr metoprolol succinate 2 5 mg extended release oral tablet (20 sources) beta-Adrenergic Diana Start: 03-17-2025 End: 05-12-2025 Start: 03-17-2025 End: 04-15-2025 take 2 tablets by mouth once daily Metoprolol Succinate 25 mg tablet extended release 24 hr Active 12.5 mg PO DAILY April 15, 2025 2:17pm Start: 01-13-2014 End: 03-17-2025 Start: 01-12-2014 End: 03-27-2025 take 1 tablet by mouth once daily Metoprolol Succinate 50 mg tablet extended release 24 hr Discontinued 50 mg PO DAILY October 23, 2024 4:55pm March 17, 2025 9:21pm Start: 01-12-2014 take 1 tablet by paolo th once daily TOPROL XL 50 MG [id number] (ER) One tablet by mouth daily METOPROLOL SUCCINATE [id number] Brandon Ch MD Start: 01-05-2014 take 1 tablet by paolo th once daily METOPROLOL SUCCINATE ER 25 MG [id number] One tablet by mouth daily METOPROLOL SUCCINATE [id number] Carole Garber RN Comment on above: Take 1 tablet by paolo th once daily. Gfvijhfm-Sewf-Gee-F olic Acid 18-0.4 mg tab (20 sources) Start: 03-02-2014 take 1 tablet by mouth once daily Rrnjpaju-Pssn-Ulk- Folic Acid 18-0.4 mg tab Take 1 tablet by mouth once daily. 03/02/2014 Active Start: 03-02-2014 take 1 tablet by paolo th once daily Rjewqxcv-Ryid-Dzw-Folic Acid 18-0.4 mg t ab Take 1 [...] Multivitamin With Folic Acid 1 TABLET tablet (11 sources) Start: 01-13-2014 take 1 tablet by [...] on above: Take 1 capsule by mo [facility] twice daily with meals for 7 days. nystatin 100 unt/mg topical powder (12 sources) Polyene Antifungal Start: 03-17-2025 End: 05-07-2025 Start: 03-17-2025 End: 05-07-2025 Nystatin (Nyamyc) 100,000 un it/gram powder Active 1 NMA TOPICAL TWICE A DAY as needed for rash May 07, 2025 9:30am Please contact the information source for Protocol details. omega-3 fatty acids 1,000 mg cap (20 sources) Start: 02-23-2014 take 1 capsule by mouth once daily omega-3 fatty acids 1,000 mg cap Take 1 capsule by mouth once daily. 02/23/2014 Active Start: 02-23-2014 take 1 capsule by mo uth once daily omega-3 fatty acids 1,000 mg cap Take 1 capsule by mouth once daily. 0 02/23/2014 Active Comment on above: Take 1 capsule by mo uth once daily. Remus-3 Fatty Acids-Fish Oil (20 sources) Start: 06-29-2016 Remus-3 Fatty Acids-Fish Oil Active 1 EACH PO DAILY June 29, 2016 1:08pm Start: 06-29-2016 Remus-3 Fatty Acids-Fish Oil Active 1 EACH PO DAILY June 28, 2016 11:00pm Start: 06-29-2016 Remus-3 Fatty Acids-Fish Oil Active 1 EACH PO DAILY June 29, 2016 12:00am Remus-3 Fatty Acids-Fish Oil 1 EACH capsule (11 sources) Start: 06-29-2016 Remus-3 Fatty Acids-Fish Oil 1 EACH capsule Active 1 NMA PO DAILY June 29, 2016 12:00am pregabalin 100 mg oral capsule (9 sources) Start: 03-07-2025 Saccharomyces boulardii (20 sources) take 1 capsule by mouth once daily SACCHAROMYCES BOULARDII (PROBIOTIC, S.BOULARDII, ORAL) Indications: Multinodular thyroid Take 1 capsule by mouth once daily. Active take 1 capsule by mouth once brandon ly SACCHAROMYCES BOULARDII (PROBIOTIC, S.BOULARDII, ORAL) Indications: Multinodular thyroid Take 1 capsule by mouth once daily. 0 Active Comment on above: Take 1 capsule by mo uth once daily. simvastatin 20 mg oral table t (20 sources) HMG-CoA Reductase Inhibitor Start: 03-23-2025 Start: 03-23-2025 take 1 tablet by paolo th at bedtime Simvastatin 20 mg tablet Active 20 mg PO AT BEDTIME March 23, 2025 4:13pm Start: 01-22-2015 End: 03-23-2025 Comment on above: Take 1 tablet by paolo th daily at bedtime. (5 sources) Start: 03-07-2025 Start: 10-05-2020 End: 03-07-2025 Start: 08-15-2018 Start: 06-29-2016 Start: 01-13-2014 Completed/Discontinued Medications Medication Drug Class(es) Dates Sig (Normalized) Sig (Original) acetaminophen 325 mg / HYDROcodone bitartrate 5 mg oral tablet (20 sources) Opioid Agonist Start: 05-03-2017 End: 07-29-2018 Start: 05-03-2017 End: 07-29-2018 Hydrocodone-Acetaminophen 1 EACH tablet Discontinued 1 - 2 [...] sources) Vitamin C Start: 07-29-2021 End: 03-07-2025 calcium (2 sources) Phosphate Binder, Calcium Start: 08-30-2017 take 1 tablet by mouth twice daily CALCIUM 600 MG TABS One tablet by mouth twice daily CALCIUM [id number] Kwaku Moscoso MD calcium ascorbate 500 mg oral tablet (20 sources) Start: 01-13-2014 End: 11-25-2020 Start: 01-13-2014 End: 11-25-2020 take 1 tablet by mouth at lunch Ascorbic Acid (Vitamin C) 500 MG tablet Discontinued 500 mg PO WITH LUNCH January 13, 2014 1:00am November 25, 2020 10:32am cefdinir 300 mg oral capsule (20 sources) Cephalosporin Antibacterial Start: 03-11-2025 End: 05-07-2025 ceftaroline fosamil 400 mg injection (10 sources) Cephalosporin Antibacterial End: 01-04-2017 TEFLARO 400 MG SOLR q 12 hrs CEFTAROLINE FOSAMIL [id number] Shaina Serna LPN ceftaroline fosamil 600 mg injection (20 sources) Start: 11-15-2016 End: 07-23-2018 End: 01-04-2017 TEFLARO 400 MG SOLR q 12 hrs CEFTAROLINE FOSAMIL [id number] Espinoza Burns MA cholecalciferol 0.05 mg oral capsule (20 sources) Vitamin D Start: 10-05-2020 End: 03-07-2025 Start: 05-20-2020 End: 03-07-2025 take 1 capsule by mouth once daily Cholecalciferol (Vitamin D3) 50 mcg (2,000 unit) capsule Discontinued 2000 U PO DAILY August 08, 2022 9:41am March 07, 2025 4:02pm take 1 capsule by mo [facility] once daily Cholecalciferol, Vitamin D3, 25 mcg (1,000 unit) cap Take 1,000 Units by mouth once daily. Active Comment on above: Take 1,000 Units by mouth once daily. clindamycin 150 mg oral caps ule (20 sources) Lincosamide Antibacterial Start: 11-15-2016 End: 07-23-2018 Start: 11-15-2016 End: 07-23-2018 take 300 mg by mouth three times daily Clindamycin Hcl Discontinued 300 MG PO THREE TIMES A DAY 120 November 18, 2016 12:48pm July 23, 2018 6:05pm take w/food clopidogrel 75 mg oral table t (20 sources) [id number] Platelet Inhibitor Start: 12-29-2014 End: 10-23-2024 Start: 01-14-2014 End: 06-12-2014 take 1 tablet by mouth once daily CLOPIDOGREL BISULFATE 75 MG TABS One tablet by mouth daily CLOPIDOGREL BISULFATE [id number] Brandon Ch MD Comment on above: Take 75 mg by mouth once daily. clotrimazole 10 mg oral lozenge (20 sources) Azole Antifungal Start: 09-20-2016 End: 11-22-2016 CLOTRIMAZOLE 10 MG LOZG 1 tab 5 x a day CLOTRIMAZOLE [id number] Espinoza Burns MA DOCUSATE SODIUM CAPS (10 sources) Histamine-1 Receptor Antagonist, Nonsteroidal Anti-inflammatory Drug Start: 09-22-2016 STOOL SOFTENER CAPS twice daily DOCUSATE SODIUM CAPS [id number] Espinoza Burns MA Start: 09-22-2016 End: 11-22-2016 STOOL SOFTENER CAPS twice da nhi DOCUSATE SODIUM CAPS [id number] Espinoza Burns MA Start: 09-22-2016 STOOL SOFTENER CAPS twice daily DOCUSATE SODIUM CAPS [id number] Espinoza Burns MA Start: 09-22-2016 End: 11-22-2016 STOOL SOFTENER CAPS twice da nhi DOCUSATE SODIUM CAPS [id number] Espinoza Burns MA docusate sodium 100 mg oral capsule (20 sources) Start: 12-29-2021 End: 05-08-2025 Start: 05-20-2020 End: 10-05-2020 Start: 05-20-2020 End: 10-05-2020 take 1 capsule by mouth three times daily Docusate Sodium 100 MG capsule Discontinued 100 mg PO THREE TIMES A DAY May 20, 2020 12:00am October 05, 2020 2:17pm Comment on above: Take 100 mg by mouth twice daily. DOCUSATE SODIUM CAPS (10 sources) Start: 09-22-2016 End: 11-22-2016 STOOL SOFTENER CAPS twice daily DOCUSATE SODIUM CAPS [id number] Espinoza Burns MA Start: 09-22-2016 STOOL SOFTENER CAPS twice daily DOCUSATE SODIUM CAPS [id number] Espinoza Burns MA doxycycline monohydrate 100 mg oral capsule (20 sources) Tetracycline-class Drug Start: 03-11-2025 End: 05-07-2025 Start: 01-02-2025 End: 03-11-2025 Start: 02-14-2017 End: 06-11-2017 take 1 tablet by mouth twice daily DOXYCYCLINE HYCLATE 100 MG CAPS One tablet by mouth twice daily DOXYCYCLINE HYCLATE [id number] Marly Patino MD estradiol 0.1 mg/ml vaginal [...] 3 10/31/2017 Active Start: 05-31-2016 End: 06-29-2022 Start: 05-31-2016 End: 06-29-2022 Estradiol 42.5 GM cream Disc ontinued 1 NMA VAGINAL SUTU as needed for VAGINAL HEALTH May 31, 2016 12:00am June 29, 2022 9:36am Start: 05-25-2015 End: 06-29-2022 Estradiol Discontinued 1 DOS E VAGINAL SUTU May 31, 2016 12:00am June 29, 2022 9:36am Start: 05-25-2015 ESTRACE 0.1 MG /GM CREA Take as directed ESTRADIOL [id number] Brandon Ch MD Start: 05-25-2015 ESTRACE 0.1 MG /GM CREA Take as directed ESTRADIOL [id number] Brandon Ch MD Comment on above: Use 1 g vaginally tw ice a week. Use 1 g vaginally tw o times a week. fish oil (5 sources) Start: 09-20-2016 take 1 tablet by mouth once daily OMEGA-3 FISH OIL 300 MG CAPS One tablet by mouth daily OMEGA-3 FATTY ACIDS [id number] Meka Jones Start: 09-20-2016 take 1 tablet by paolo th once daily OMEGA-3 FISH OIL 300 MG CAPS One tablet by mouth daily OMEGA-3 FATTY ACIDS [id number] Meka Jones gabapentin 600 mg oral table t (20 sources) Anti-epileptic Agent Start: 12-08-2021 End: 03-07-2025 Start: 01-05-2014 End: 08-08-2022 Comment on above: Take 1 tablet by paolo th three times daily for 30 days. TAKE 1 TABLET BY PAOLO TH THREE TIMES DAILY Take 1 tablet by paolo th three times a day for 120 days. glimepiride 4 mg oral tablet (20 sources) Sulfonylurea Start: 03-07-2025 End: 05-07-2025 Start: 03-24-2024 End: 06-04-2024 take 1 tablet by mouth once daily at breakfast glimepiride (AMARYL) 4 mg tablet Take 1 tablet by mouth daily with breakfast. 90 tablet 3 06/04/2024 Active Start: 04-20-2023 End: 03-07-2025 Start: 01-22-2023 End: 03-22-2024 take 1 tablet [...] April 20, 2023 8:56am Start: 01-05-2014 End: 03-07-2025 take 2 tablets by mouth once daily Glimepiride 2 mg tablet Discontinued 4 mg PO DAILY April 20, 2023 8:54am March 07, 2025 4:02pm Comment on above: Take 1 tablet by paolo th twice daily with meals. Take 1 tablet by paolo th daily with breakfast. hydroCHLOROthiazide 25 mg or al tablet (20 sources) Thiazide Diuretic Start: 09-22-2016 End: 03-27-2025 Start: 01-05-2014 End: 09-20-2016 Start: 01-05-2014 take 2 tablets by mo [facility] once daily HYDROCHLOROTHIAZIDE 12.5 MG TABS Two tablets by mouth daily HYDROCHLOROTHIAZIDE [id number] Carole Garber RN Comment on above: Take 1 tablet by paolo th once daily. 3 ml insulin lispro 100 unt/ml pen injector (8 sources) Insulin Analog Start: 5 End: 5 LACTOBACILLUS CAPS (2 sources) Start: 7 take 1 tablet by mouth once daily ACIDOPHILUS CAPS 600 mg. One tablet by mouth daily LACTOBACILLUS CAPS [id number] Kwaku Moscoso MD LACTOBACILLUS CAPS (20 sources) Start: 6 ACIDOPHILUS/PECTIN CAPS 1 tab every night LACTOBACILLUS CAPS [id number] Meka Vaughanzworski Start: 09-20-2016 End: 11-22-2016 ACIDOPHILUS/PECTIN CAPS 1 ta b every night LACTOBACILLUS CAPS [id number] Espinoza Burns MA Start: 09-20-2016 End: 11-22-2016 ACIDOPHILUS/PECTIN CAPS 1 ta b every night LACTOBACILLUS CAPS [id number] Espinoza Burns MA Start: 09-20-2016 ACIDOPHILUS/PE CTIN CAPS 1 tab every night LACTOBACILLUS CAPS [id number] Meka Haylie Robert Start: 07-11-2016 End: 08-31-2016 Start: 07-11-2016 End: 08-31-2016 take 1 tablet by mouth twice daily Acidophilus-Pectin, Charlton 1 EACH tablet Discontinued 1 NMA PO TWICE A DAY July 11, 2016 12:00am August 31, 2016 5:49pm Start: 07-11-2016 End: 08-31-2016 Acidophilus-Pectin, Charlton D iscontinued 1 EACH PO TWICE A DAY July 11, 2016 12:00am August 31, 2016 5:49pm levoFLOXacin 500 mg oral tab let (20 sources) Quinolone Antimicrobial Start: 06-29-2016 End: 09-05-2016 linezolid 600 mg oral tablet (20 sources) Oxazolidinone Antibacterial Start: 01-08-2017 End: 07-29-2018 lisinopril 20 mg oral tablet (20 sources) Angiotensin Converting Enzyme Inhibitor Start: 12-05-2023 End: 03-27-2025 Start: 12-05-2022 take 1 tablet by paolo th once daily lisinopril (ZESTRIL, PRINIVIL) 20 mg tablet Take 1 tablet by mouth once daily. 90 tablet 3 12/05/2022 Active Start: 01-05-2014 End: 03-07-2025 Comment on above: Take 1 tablet by paolo th once daily. metFORMIN hydrochloride 500 mg oral tablet (20 sources) Biguanide Start: 07-29-2018 End: 03-11-2025 Start: 07-29-2018 End: 06-29-2022 take 1 tablet by mouth once daily Metformin 500 mg tablet Discontinued 500 mg PO DAILY October 05, 2020 1:00am June 29, 2022 9:37am Start: 01-05-2014 take 1 tablet by paolo th twice daily METFORMIN HCL 500 MG TABS One tablet by mouth twice daily METFORMIN HCL [id number] Kwaku Moscoso MD Start: 01-05-2014 End: 07-29-2018 Comment on above: Take 1 tablet by paolo twice daily with meals. Take 1 tablet by paolo daily with breakfast. metroNIDAZOLE 500 mg oral tablet (20 sources) Nitroimidazole Antimicrobial Start: 03-11-20 End: 05-07-20 MULTIPLE VITAMIN (10 sources) Start: 01-05-20 take 1 tablet by mouth once daily MULTIVITAMINS TABS One tablet by mouth daily MULTIPLE VITAMIN Carole Garber RN Start: 01-05-2014 take 1 tablet by paolo once daily MULTIVITAMINS TABS One tablet by mouth daily MULTIPLE VITAMIN Carole Garber RN Ncomoqvh-Btnq-Xpt-Folic Acid (CENTRUM COMPLETE) 18-0.4 mg tab (12 sources) Start: 03-02-2014 take 1 tablet by mouth once daily Bytxckuj-Cigx-Nwk-Folic Acid (CENTRUM COMPLETE) 18-0.4 mg tab Take 1 tablet by mouth once daily. 0 03/02/2014 Active Comment on above: Take 1 tablet by paolo once daily. naproxen sodium 220 mg oral tablet (20 sources) Nonsteroidal Anti-inflammat ory Drug Start: 01-05-2014 End: 12-29-2014 ALEVE 220 MG TABS as needed NAPROXEN SODIUM [id number] Carole Garber RN nitroglycerin 0.4 mg sublingual tablet (10 sources) Nitrate Vasodilator Start: 01-05-2014 NITROSTAT 0.4 MG SUBL 1 tablet under tongue every 5 min up to 3 X NITROGLYCERIN [id number] Carole Garber RN OMEGA-3 FATTY ACIDS (5 sources) Start: 09-20-2016 take 1 tablet by mouth once daily OMEGA-3 FISH OIL 300 MG CAPS One tablet by mouth daily OMEGA-3 FATTY ACIDS [id number] Meka Jones polysaccharide iron complex 150 mg oral capsule (12 sources) Start: 09-20-2016 End: 08-30-2017 take 1 tablet by mouth once daily FERREX 150 150 MG CAPS One tablet by mouth daily POLYSACCHARIDE IRON COMPLEX [id number] Kwaku Moscoso MD Start: 09-20-2016 take 1 tablet by paolo once daily FERREX 150 150 MG CAPS One tablet by mouth daily POLYSACCHARIDE IRON COMPLEX [id number] Meka Jones pravastatin sodium 20 mg oral tablet (20 sources) HMG-CoA Reductase Inhibitor Start: 01-05-2014 End: 01-22-2015 take 1 tablet by mouth once daily PRAVASTATIN SODIUM 20 MG TABS One tablet by mouth daily PRAVASTATIN SODIUM [id number] Carole monzonot-s (2 sources) Start: 08-30-2017 take 1 tablet by mouth twice daily STOOL SOFTENER 100 MG TABS One tablet by mouth twice daily DOCUSATE SODIUM [id number] Kwaku Moscoso MD vancomycin 50 mg/ml injectable solution (20 sources) Glycopeptide Antibacterial Start: 09-20-2016 End: 11-22-2016 take 1000 mg intravenous route every twenty-four hours VANCOMYCIN HCL 1000 MG SOLR IV Q24 hours for 38 days VANCOMYCIN HCL [id number] Meka Jones Problems Active Problems Problem Classification [...] Onset: 6 10-05-2016 Chronic Comment on above: ~2016 Chronic kidney disease (2 sources) Chronic kidney disease; Translations: [Stage 3 chronic kidney disease, unspecified whether stage 3a or 3b CKD ([facility])] Onset: 7 Chronic ulcer of skin (20 [...] disease (20 sources) Atherosclerotic heart disease of [place] coronary artery without angina pectoris; Translations: [Coronary [...] to her diabetes. Deficiency and other anemia (20 sources) Anemia; Translations: [Anemia, unspecified] Onset: 8 02-25-2018 Episodic Deficiency and other anemia (16 sources) Iron deficiency anemia; Translations: [Iron deficiency [...] artery of lower limb; Translations: [Atherosclerosis of [place] arteries of extremities with gangrene, bilateral legs] Onset: 5 03-19-2025 Chronic Gangrene (16 sources) Gangrenous disorder; Translations: [Gangrene, not elsewhere classified] 03-17-2025 Episodic Gastrointestinal hemorrhage (18 sources) Gastrointestinal hemorrhage; Translations: [Gastrointestinal hemorrhage, unspecified] 03-07-2025 Episodic Genitourinary symptoms and ill-defined conditions (20 sources) Urge incontinence of urine; Translations: [Urge incontinence] Onset: 2 12-02-2021 Chronic Heart valve disorders (20 sources) Systolic murmur; Translations: [Cardiac murmur, unspecified] Onset: 5 02-07-2024 Episodic Comment on above: The patient [...] toe with extension onto dorsum of foot Malaise and fatigue (20 sources) Fatigue; Translations: [Other fatigue] Onset: 0 12-03-2019 Episodic Nutritional deficiencies (20 sources) Undernutrition; Translations: [Unspecified [...] of colonic polyps] Episodic Other circulatory disease (20 sources) Peripheral arterial occlusive disease; Translations: [Disorder [...] Onset: 3 12-29-2014 Chronic Comment on above: 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-Left SFA [...] Onset: 5 06-04-2024 Chronic Superficial injury; contusion (18 sources) Contusion of hip; Translations: [Contusion of left hip, initial encounter] 03-07-2025 Episodic Thyroid disorders (20 sources) Multinodular goiter; Translations: [Nontoxic multinodular goiter] Onset: 5 08-30-2017 Chronic Unclassified (7 sources) appt sanford Whitehead NP Unclassified (1 source) Chronic midline low back pain without sciatica; Translations: [Chronic midline low back pain without sciatica] Onset: 5 Unclassified (1 source) Degeneration of intervertebral disc of lumbar region with discogenic back pain and lower extremity pain; Translations: [Degeneration of intervertebral disc of lumbar region with discogenic back pain and lower extremity pain] Onset: 5 Urinary tract infections (20 sources) Recurrent urinary tract infection; Translations: [Urinary tract infection, site not specified] Onset: 1 05-31-2021 Episodic Past or Other Problems Problem Classification Problem Date Documented Da te Episodic/Chronic Abdominal pain (1 source) Pelvic and perineal pain; Translations: [Pelvic and perineal pain] Onset: 08-25-2024 Episodic Conditions associated with dizziness or vertigo (20 sources) Benign paroxysmal positional vertigo; Translations: [Benign paroxysmal vertigo, unspecified ear] Onset: 11-14-2017 Resolved: 11-30-2021 02-25-2018 Episodic Genitourinary symptoms and ill-defined conditions (20 sources) Abnormal urine odor; Translations: [Unspecified abnormal findings in urine] Onset: 05-28-2019 05-28-2019 Episodic Open wounds of extremities (10 sources) [...] cardiovascular examination] Onset: 01-05-2014 Resolved: 05-30-2017 01-05-2014 Results Test Name Value Interpretation Reference Range Facility MR/BMS.BVAndrews 05-13-2025 MR/BMS.BVS Normal [facility] Cardiovascular stress test r eportOrdered By: Jarret Quiles on 05-11-2025 Study report [facility] [address] [place] [address] MR#: [id number] Acct: [id number] Name: TRENTGELY Rep #: [id number] : 1950 75 From: Jarret Quiles MD Primary Care: DO Bindu Rudolph tus: REG CLI Referring Dr: Jarret Quiles MD Sex: F C Stress Test Report Date: 05/08/2025 Procedure: Pharmacologic stress nuclear imaging study Indications: Coronary artery disease/preop evaluation Consent: Per the patient Procedure: The patient underwent pharmacologic (Regadenoson 0.4mg ) evaluation with a peak heart rate of 85 beats per minute (57%predicted maximal heart rate) and a peak blood pressure of 122/54 mmHg. The baseline ECG demonstrated sinus rhythm with nonspecific ST-T wave changes. The peak pharmacologic ECG was nondiagnostic secondary to baseline abnormalities. There were no cardiac dysrhythmias pretest, during pharmacologic infusion, or recovery. There was no complaint of chest discomfort during pharmacologic infusion or recovery. The patient was injected with 12.0 millicuries of technetium 99m Cardiolite and subsequently rest SPECT Cardiolite nuclear imaging was obtained in the horizontal long, vertical long, and short axis views. The patient underwent pharmacologic (Regadenoson) evaluation. The patient was injected with 36.0 millicuries of technetium 99m Cardiolite and subsequently stress SPECT Cardiolite nuclear imaging was obtained in the horizontal long, vertical long, and short axis views. A gated Cardiolite study at peak stress was obtained. The examination was stopped secondary to completion of protocol. Rest and stress SPECT Cardiolite nuclear imaging status post realignment, normalization, and attenuation correction demonstrate reduced perfusion of the inferolateral wall at rest which is minimally exaggerated post pharmacological stress. The gated study show mild inferior hypokinesis. The reported LVEF is 55%. Impression: 1. Pharmacologic (Regadenoson) evaluation 2. Peak pharmacologic ECG with no diagnostic changes. 3. There were no cardiac dysrhythmias pretest, during pharmacologic infusion, or recovery. 5. Resting hypoperfusion of the inferior lateral wall consistent with nontransmural infarct with mild will-infarct ischemia. 6. The gated Cardiolite study reports an LVEF of 55%. This note was generated with [employer] software. It may contain incorrectwords, spelling, and punctuation that were not noted in checking the note beforesigning. 05/11/25 0830 Date _ Jarret Quiles MD CC: Dr. Jarret Quiles MD; Dr. Rishi Vasquez, DO ~ Date Dictated: 05/11/25827 Date Transcribed: 05/11/25827 Marine Machinist: CARLO Signed [facility] Work Phone: Stress Reporton 05-11-2025 Stress Report Normal [facility] Basic Metabolic Profile (BMP )on 05-08-2025 BUN/CRE 40.4 RATIO High 10-20 [facility] Comment on above: Performed By: #### L 500.2500, L100.0500 ####[facility] [address] [place], [address] Calcium [Mass/Vol] 8.8 mg/dL Normal 7.6-11.0 [facility] Comment on above: Performed By: #### L 500.2500, L100.0500 ####[facility] [address] [place], [address] Chloride [Moles/Vol] 104 mmol/L Normal 98-108 [facility] Comment on above: Performed By: #### L 500.2500, L100.0500 ####[facility] [address] [place], [address] CO2 [Moles/Vol] 22.0 mmol/L Normal 21.0-32.0 [facility] Comment on above: Performed By: #### L 500.2500, L100.0500 ####[facility] [address] [place], [address] Creatinine [Mass/Vol] 0.93 mg/dL Normal 0.70-1.20 [facility] Comment on above: Performed By: #### L 500.2500, L100.0500 ####[facility] [address] [place], [address] GAP 12 Normal 5-15 [facility] Comment on above: Performed By: #### L 500.2500, L100.0500 ####[facility] [address] [place], [address] GFR/1.73 sq M.predicted among non-blacks MDRD (S/P/Bld) [Vol rate/Area] 65 mL/min/{1.73_m2} Normal >60 [facility] Comment on above: Result Comment: mL/m in/1.73m2 CKD-EPI Creatinine Equation (2020) Performed By: #### L 500.2500, L100.0500 ####[facility] [address] [place], [address] Glucose [Mass/Vol] 197 mg/dL High 70-99 [facility] Comment on above: Performed By: #### L 500.2500, L100.0500 ####[facility] [address] [place], [address] Potassium [Moles/Vol] 4.4 mmol/L Normal 3.3-5.1 [facility] Comment on above: Performed By: #### L 500.2500, L100.0500 ####[facility] [address] [place], [address] Sodium [Moles/Vol] 138 mmol/L Normal 133-145 [facility] Comment on above: Performed By: #### L 500.2500, L100.0500 ####[facility] [address] [place], [address] Urea nitrogen [Mass/Vol] 38 mg/dL High 4-19 [facility] Comment on above: Performed By: #### L 500.2500, L100.0500 ####[facility] [address] [place], [address] CBC-Complete Blood Cnt No Di ffon 05-08-2025 Erythrocyte distribution width (RBC) [Ratio] 14.9 % High 11.6-14.6 [facility] Comment on above: Performed By: #### L 500.2500, L100.0500 ####[facility] [address] [place], [address] Hematocrit (Bld) [Volume fraction] 32.0 % Low 37-47 [facility] Comment on above: Performed By: #### L 500.2500, L100.0500 ####[facility] [address] [place], [address] Hemoglobin (Bld) [Mass/Vol] 10.4 g/dL Low 12.0-15.0 [facility] Comment on above: Performed By: #### L 500.2500, L100.0500 ####[facility] [address] [place], [address] MCH (RBC) [Entitic mass] 29.6 pg Normal 27.0-32.0 [facility] Comment on above: Performed By: #### L 500.2500, L100.0500 ####[facility] [address] [place], [address] MCHC (RBC) [Mass/Vol] 32.5 g/dL Normal 32-36 [facility] Comment on above: Performed By: #### L 500.2500, L100.0500 ####[facility] [address] [place], [address] MCV (RBC) [Entitic vol] 91.2 fL Normal 81-99 [facility] Comment on above: Performed By: #### L 500.2500, L100.0500 ####[facility] [address] [place], [address] Platelet mean volume (Bld) [Entitic vol] 11.8 fL Normal 6.2-12.0 [facility] Comment on above: Performed By: #### L 500.2500, L100.0500 ####[facility] [address] [place], [address] Platelets (Bld) [#/Vol] 170 10*3/uL Normal 150-450 [facility] Comment on above: Performed By: #### L 500.2500, L100.0500 ####[facility] [address] [place], [address] RBC (Bld) [#/Vol] 3.51 10*6/uL Low 4.2-5.4 [facility] Comment on above: Performed By: #### L 500.2500, L100.0500 ####[facility] [address] [place], [address] RDW SD 50.3 fl High 35.1-43.9 [facility] Comment on above: Performed By: #### L 500.2500, L100.0500 ####[facility] [address] [place], [address] WBC (Bld) [#/Vol] 6.0 10*3/uL Normal 4.4-11.0 [facility] Comment on above: Performed By: #### L 500.2500, L100.0500 ####[facility] [address] [place], [address] MR/PAT.ANEon 05-08-2025 MR/PAT.ANE Normal [facility] Cardiology Visit Reporton Cardiology Visit Report Normal [facility] GELY NEWMAN ([id number]) 1950 F Date Time Provider Department 05/06/25 RISHI VASQUEZ [facility] During your visit today, we recorded the following information about you: Sara Solis RN 05/06/2025 12:30 PM Signed Pt called in and reports she went in to [facility] and they told her that her insurance doesn't cover the Glipizide 5 mg tablets without a PA. Pt states she got them before and her insurance covered them. Pt states she paid out of pocket for 5 days worth of pills. Prior Authorization Documentation Prior authorization requested for the following medication: Medication: Glipizide Provider: Sushma Escobedo NP Insurance Company Name: [employer] Phone number:[phone] Patient ID number: [id number] Pharmacy Name: [facility] Telephone number: [phone] Any Rodriguez LPN 05/06/2025 1:17 PM Signed Electronic PA requested. Any Rodriguez LPN 05/06/2025 1:21 PM Signed This is the PA response. Close reason: Product not covered by this plan. Prior Authorization not available. Payer: [email or web address] [phone] Note from payer: This drug/product is not covered under the pharmacy benefit. Prior Authorization is not available. Any Rodriguez LPN 05/06/2025 2:55 PM Signed Called pt and message left she can either ask the pharmacy to run the rx with a discount card or call back and ask the provider to change the medicine. Rishi Vasquez DO 05/06/2025 8:20 PM Signed Agree with below DO Will Ernst Amanda, RN 05/07/2025 11:28 AM Signed Called and left a detailed voicemail notifying patient of providers message. Clinic phone number was left for the patient to call back if she would like the provider to change her medication. GORGE Madden M Robin, RN 05/07/2025 1:08 PM Signed Pt phoned back and states she was able to get 5 days of glipizide from pharmacy. Pt asking pcp to change the medication since her insurance does not cover it. Rishi Vasquez DO 05/11/2025 7:40 AM Signed Okay to change to glimepiride Please let patient know The following approved medication requests have been transmitted electronically. Requested Prescriptions Signed Prescriptions Disp Refills glimepiride (AMARYL) 2 mg tablet 180 tablet 1 Sig: Take 1 tablet by mouth two times a day with meals. Authorizing Provider: RISHI VASQUEZ DO Garrison, Jordan L, DO 05/11/2025 7:40 AM Signed Addended by: RISHI VASQUEZ on: 05/11/2025 07:40 AM Modules accepted: Orders Allergies As of Date: 05/06/2025 Noted Allergy Reaction SULFA (SULFONAMIDE ANTIBIOTICS) 01/13/2013 18 - Unknown Comments: childhood Date Reviewed: 04/30/2025 Reviewed by: Joanie Rosario LPN - Fully Assessed Reason for Visit: Medication Problem [65] Order(s):glimepiride (AMARYL) 2 mg tabletTake 1 tablet by mouth two times a day with meals.Disp: 180 tabletRfl: 1 Prescriptions as of 05/11/2025 - glimepiride (AMARYL) 2 mg tablet Take 1 tablet by mouth two times a day with meals. - amLODIPine (NORVASC) 5 mg tablet Take 5 mg by mouth once daily. - metoprolol succinate ER (TOPROL XL) 25 mg 24 hr tablet Take 0.5 tablets by mouth once daily. - simvastatin (ZOCOR) 40 mg tablet Take 1 tablet by mouth daily at bedtime. - Blood Pressure Test Kit-Medium kit 1 [...] 1 tablet by mouth once daily. - Vtpcinhn-Fjwm-Gic-Folic Acid 18-0.4 mg tab Take 1 tablet by mouth once daily. - omega-3 fatty acids 1,000 mg cap Take 1 capsule by mouth once daily. - Aspirin 81 mg Tab Take 1 tablet by mouth once daily. Take with food. Problem List As Of Date 05/06/2025 Noted Resolved Peripheral vascular occlusive disease [I73.9] 01/13/2013 Diabetes mellitus type 2 with peripheral artery*01/28/2013 Hypertension [I10] 01/28/2013 Overweight (BMI 25.0-29.9) [E66.3] 05/01/2013 Dyslipidemia (high LDL; low HDL) [E78.5] 07/01/2013 Abnormal nuclear stress test [R94.39] 12/09/2013 Carotid atherosclerosis, bilateral [I65.23] 01/21/2015 Multinodular thyroid [E04.2] 02/26/2015 Essential hypertension [I10] 11/30/2015 10/24/2016 Occult blood in stools [R19.5] 10/05/2016 Coronary artery disease [I25.10] 10/24/2016 CKD (more content not included)... Normal [facility] CNOVon 04-30-2025 [facility]OV [facility] -------- GELY NEWMAN ([id number]) 1950 F Date Time Provider Department 04/30/25 11:20 AM FOUIZA ESCOBEDO [facility] During your visit today, we recorded the following information about you: Pulse Respiration Blood pressure Weight 77/minute 12/minute 130/60 68.9 kg Fouzia Escobedo APRN.CNP 04/30/2025 12:26 PM Signed HISTORY OF PRESENT [...] wound dressing changes - Recent visit to movie stunt performer Dr. Irene, who discussed potential surgery for [...] mellitus (HCC) Coronary artery disease Dr. Ch Associate Director, 90% blockage- unable to do stenting Diabetes mellitus type 2 in obese Diabetic feet (HCC) Gangrene (HCC) 2012 RIGHT FOOT Hypertension Mild non proliferative diabetic retinopathy (HCC) 06/11/2013 Both eyes, Dr. Ortiz [place] [facility] [place]-03/25/2020 left mild, right moderate Multiple thyroid nodules last US 01/2015 Peripheral artery disease due to Diabetes mellitus, Dr. Kwaku Moscoso Rotator cuff syndrome of left shoulder Dr. Deluna [facility] PAST SURGICAL HISTORY Procedure Laterality Date AMPUTATION [...] 04-08-13 ROTATOR CUFF REPAIR 03/11/14 Dr. Deluna [facility] CATHJ EA 1ST ORD ABDL PEL/LXTR ART [...] 650 m (more content not included)... Normal [facility] Thyroidon 04-27-2025 Thyroid Normal [facility] Duplex ultrasound of carotid artery reportOrdered By: Russell Clement on 04-23-2025 Study report [facility] [place] [address] Carotid Duplex Ultrasound 04/20/25 1337 MR#: [id number] Acct: [id number] Name: GELY NEWMAN Rep #:[id number] : 1950 75 From: Russell Abraham Attending [...] the left vertebral artery. Procedure Carotid Duplex 12510. This is a Carotid Duplex examination using [...] Clement MD CC: LILLIAM Gilmore; Dr. Rishi Vasquez DO ~ Date Dictated: 04/20/25 1337 Date Transcribed: 04/23/25 1037 Marine Machinist: Signed [facility] Work Phone: Carotid Duplex Ultrasoundon 04-20-2025 Carotid Duplex Ultrasound Normal [facility] -------- GELY NEWMAN ([id number]) 1950 F Date Time Provider Department 04/16/25 RISHI VASQUEZ [facility] During your visit today, we recorded the following information about you: Hina Lomeli, RN 04/16/2025 9:34 AM Signed Jessika calling from [facility] to report plan of care for patient and longterm will continue visit patient 1 time a week for 5 weeks. jail will work with patient on wound care to bilateral lower extremities. Patient is being follow by Dr. Irene for wound care. No call back needed. Hina Lomeli RN Allergies As of Date: 04/16/2025 Noted Allergy Reaction SULFA (SULFONAMIDE ANTIBIOTICS) 01/13/2013 18 - Unknown Comments: childhood Date Reviewed: 03/27/2025 Reviewed by: Rachel Jacobs MA - Fully Assessed Reason for Visit: Halfway Plan of Care [Other] Prescriptions as of [...] 1 tablet by mouth once daily. - Fhysghza-Fzmx-Xly-Folic Acid 18-0.4 mg tab Take 1 tablet [...] [L72.3, L08.9] 02/26/2019 Coronary artery disease involving te-moak heart *05/28/2019 Abnormal urine odor [R82.90] 05/28/2019 [...] mammogram for malignant*12/05/2024 Encounter Status:Closed by HINA LOMELI on 04/16/25 Normal [facility] Anion gap in Serum or Plasma Ordered By: Russell Clement on 04-15-2025 Anion gap [Moles/Vol] 13 mmol/L 04-02 [facility] BUN/creatinine ratioOrdered By: Russell Clement on 04-15-2025 Urea nitrogen/Creatinine [Mass ratio] 33.4 mg/mg High 10- [facility] Basic Metabolic Profile (BMP )on 04-15-2025 BUN/CRE 33.4 RATIO High [facility] Comment on above: Performed By: #### L 500.2500, L100.0500 ####[facility] [address] [place], [address] Calcium [Mass/Vol] 9.3 mg/dL Normal 7.6-11.0 [facility] Comment on above: Performed By: #### L 500.2500, L100.0500 ####[facility] [address] [place], [address] Chloride [Moles/Vol] 106 mmol/L Normal 98-108 [facility] Comment on above: Performed By: #### L 500.2500, L100.0500 ####[facility] [address] [place], [address] CO2 [Moles/Vol] 21.9 mmol/L Normal 21.0-32.0 [facility] Comment on above: Performed By: #### L 500.2500, L100.0500 ####[facility] [address] [place], [address] Creatinine [Mass/Vol] 1.07 mg/dL Normal 0.70-1.20 [facility] Comment on above: Performed By: #### L 500.2500, L100.0500 ####[facility] [address] [place], [address] ECRCL 48.30 ml/min Low 50-250 [facility] Comment on above: Performed By: #### L 500.2500, L100.0500 ####[facility] [address] [place], [address] GAP 13 Normal 5-15 [facility] Comment on above: Performed By: #### L 500.2500, L100.0500 ####[facility] [address] [place], [address] GFR/1.73 sq M.predicted among non-blacks MDRD (S/P/Bld) [Vol rate/Area] 55 mL/min/{1.73_m2} Low >60 [facility] Comment on above: Result Comment: mL/m in/1.73m2 CKD-EPI Creatinine Equation (2020) Performed By: #### L 500.2500, L100.0500 ####[facility] [address] [place], [address] Glucose [Mass/Vol] 152 mg/dL High 70-99 [facility] Comment on above: Performed By: #### L 500.2500, L100.0500 ####[facility] [address] [place], [address] Potassium [Moles/Vol] 4.9 mmol/L Normal 3.3-5.1 [facility] Comment on above: Performed By: #### L 500.2500, L100.0500 ####[facility] [address] [place], [address] Sodium [Moles/Vol] 140 mmol/L Normal 133-145 [facility] Comment on above: Performed By: #### L 500.2500, L100.0500 ####[facility] [address] [place], [address] Urea nitrogen [Mass/Vol] 36 mg/dL High 4-19 [facility] Comment on above: Performed By: #### L 500.2500, L100.0500 ####[facility] [address] [place], [address] CBC-Complete Blood Cnt No Di ffon 04-15-2025 Erythrocyte distribution width (RBC) [Ratio] 15.8 % High 11.6-14.6 [facility] Comment on above: Performed By: #### L 500.2500, L100.0500 ####[facility] [address] [place], [address] Hematocrit (Bld) [Volume fraction] 38.4 % Normal 37-47 [facility] Comment on above: Performed By: #### L 500.2500, L100.0500 ####[facility] [address] [place], [address] Hemoglobin (Bld) [Mass/Vol] 12.2 g/dL Normal 12.0-15.0 [facility] Comment on above: Performed By: #### L 500.2500, L100.0500 ####[facility] [address] [place], [address] MCH (RBC) [Entitic mass] 29.5 pg Normal 27.0-32.0 [facility] Comment on above: Performed By: #### L 500.2500, L100.0500 ####[facility] [address] [place], [address] MCHC (RBC) [Mass/Vol] 31.8 g/dL Low 32-36 [facility] Comment on above: Performed By: #### L 500.2500, L100.0500 ####[facility] [address] [place], [address] MCV (RBC) [Entitic vol] 92.8 fL Normal 81-99 [facility] Comment on above: Performed By: #### L 500.2500, L100.0500 ####[facility] [address] [place], [address] Platelet mean volume (Bld) [Entitic vol] 11.4 fL Normal 6.2-12.0 [facility] Comment on above: Performed By: #### L 500.2500, L100.0500 ####[facility] [address] [place], [address] Platelets (Bld) [#/Vol] 205 10*3/uL Normal 150-450 [facility] Comment on above: Performed By: #### L 500.2500, L100.0500 ####[facility] [address] [place], [address] RBC (Bld) [#/Vol] 4.14 10*6/uL Low 4.2-5.4 [facility] Comment on above: Performed By: #### L 500.2500, L100.0500 ####[facility] [address] [place], [address] RDW SD 53.9 fl High 35.1-43.9 [facility] Comment on above: Performed By: #### L 500.2500, L100.0500 ####[facility] [address] [place], [address] WBC (Bld) [#/Vol] 7.7 10*3/uL Normal 4.4-11.0 [facility] Comment on above: Performed By: #### L 500.2500, L100.0500 ####[facility] [address] [place], [address] Gabriel 04-15-2025 MARKN Telephone ([facility]) -------- TRENTGELY Lawrence ([id number]) 1950 F Date Time Provider Department 04/15/25 FOUZIA ESCOBEDO During your visit today, we [...] 1 tablet by mouth once daily. - Zhcaotme-Uvfn-Bzh-Folic Acid 18-0.4 mg tab Take 1 tablet [...] [L72.3, L08.9] 02/26/2019 Coronary artery disease involving te-moak heart *05/28/2019 Abnormal urine odor [R82.90] 05/28/2019 [...] Status:Closed by FOUZIA ESCOBEDO on 04/15/25 Normal [facility] Carbon dioxide, total [Moles /volume] in Central venous bloodOrdered By: Russell Clement on 04-15-2025 CO2 [Moles/Vol] 21.9 mmol/L 21.0-32.0 [facility] Chloride assayOrdered By: Woo Clement on 04-15-2025 Chloride [Moles/Vol] 106 mmol/L 98-108 [facility] Erythrocyte distribution wid th ratioOrdered By: Russell Clement on 04-15-2025 Erythrocyte distribution width (RBC) [Ratio] 15.8 % High 11.6-14.6 [facility] Erythrocyte distribution wid th standard deviationOrdered By: Russell Clement on 04-15-2025 Erythrocyte distribution width (RBC) [Ratio] 53.9 fl High 35.1-43.9 [facility] Glomerular filtration rate ( GFR) estimation/1.73 sq m using serum, plasma, or whole bOrdered By: Russell Clement on 04-15-2025 GFR/1.73 sq M.predicted among non-blacks MDRD (S/P/Bld) [Vol rate/Area] 55 mL/min/{1.73_m2} Low >60 [facility] Comment on above: mL/min/1.73m2 CKD-EP I Creatinine Equation (2020) Hematocrit Auto (Bld) [Volum e fraction]Ordered By: Russell Clement on 04-15-2025 Hematocrit (Bld) [Volume fraction] 38.4 % 37-47 [facility] Hemoglobin measurementOrdere d By: Russell Clement on 04-15-2025 Hemoglobin (Bld) [Mass/Vol] 12.2 g/dL 12.0-15.0 [facility] MCV (mean corpuscular volume ) determinationOrdered By: Russell Clement on 04-15-2025 MCV (RBC) [Entitic vol] 92.8 fL 81-99 [facility] Mean corpuscular hemoglobin (MCH) determinationOrdered By: Russell Clement on 04-15-2025 MCH (RBC) [Entitic mass] 29.5 pg 27.0-32.0 [facility] Mean corpuscular hemoglobin concentration (MCHC) determinationOrdered By: Russell Clement on 04-15-2025 MCHC (RBC) [Mass/Vol] 31.8 g/dL Low 32-36 [facility] Mean platelet volume determi nationOrdered By: Russell Clement on 04-15-2025 Platelet mean volume (Bld) [Entitic vol] 11.4 fL 6.2-12.0 [facility] Operative Reporton Operative Report Normal [facility] Platelet countOrdered By: Woo Clement on 04-15-2025 Platelets (Bld) [#/Vol] 205 10*3/uL 150-450 [facility] Potassium measurement (mass/ volume)Ordered By: Russell Clement on 04-15-2025 Potassium (Unsp spec) [Mass/Vol] 4.9 mmol/L 3.3-5.1 [facility] RBC Auto (Bld) [#/Vol]Ordere d By: Russell Clement on 04-15-2025 RBC (Bld) [#/Vol] 4.14 10*6/uL Low 4.2-5.4 [facility] Serum creatinine measurement (mass/volume)Ordered By: Russell Clement on 04-15-2025 Creatinine [Mass/Vol] 1.07 mg/dL 0.70-1.20 [facility] Serum glucose measurement (m ass/volume)Ordered By: Russell Clement on 04-15-2025 Glucose [Mass/Vol] 152 mg/dL High 70-99 [facility] Serum or plasma calcium natalia urement (mass/volume)Ordered By: Russell Pérezey on 04-15-2025 Calcium [Mass/Vol] 9.3 mg/dL 7.6-11.0 [facility] Serum or plasma urea nitroge n measurement (mass/volume)Ordered By: Russellyuri Clement on 04-15-2025 Urea nitrogen [Mass/Vol] 36 mg/dL High 4-19 [facility] Sodium levelOrdered By: Russell Pérezey on 04-15-2025 Sodium [Moles/Vol] 140 mmol/L 133-145 [facility] White blood cell (WBC) count Ordered By: Russell Pérezey on 04-15-2025 WBC (Bld) [#/Vol] 7.7 10*3/uL 4.4-11.0 [facility] CNPNon 04-10-2025 CNPN Telephone ([facility]) -------- GELY NEWMAN ([id number]) 1950 F Date Time Provider Department 04/10/25 FOUZIA ESCOBEDO [facility] During your visit today, we [...] Reason for Visit: Appointment [186] Patient Update [[id number]] Primary Visit Diagnosis: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 - Ytumrlxg-Kpic-Qia-Folic Acid 18-0.4 mg tab Take 1 tablet by mouth once daily. - omega-3 fatty acids 1,000 mg cap Take 1 capsule by mouth once daily. - Aspirin 81 mg Tab Take 1 tablet by mouth once daily. Take with food. Medication notes this encounter METFORMIN 500 MG TABLET >> Fouzia Escobedo APRN.AUTOMOTIVE BUYER 04/10/2025 4:[address] solomon [...] [L72.3, L08.9] 02/26/2019 Coronary artery disease involving te-moak heart *05/28/2019 Abnormal urine odor [R82.90] 05/28/2019 [...] for prudencio (more content not included)... Normal [facility] Basic Metabolic Profile (BMP )on 04-09-2025 BUN Normal -19 [facility] Comment on above: Result Comment: Canc elled via OM: Order cancelled - Patient discharged Performed By: #### L 500.2500, L100.0100 ####[facility] [address] [place], [address] BUN/CRE Normal 10-20 [facility] Comment on above: Result Comment: Canc elled via OM: Order cancelled - Patient discharged Performed By: #### L 500.2500, L100.0100 ####[facility] [address] [place], [address] Calcium Normal 7.6-11.0 [facility] Comment on above: Result Comment: Canc elled via OM: Order cancelled - Patient discharged Performed By: #### L 500.2500, L100.0100 ####[facility] [address] [place], [address] CL Normal 98-108 [facility] Comment on above: Result Comment: Canc elled via OM: Order cancelled - Patient discharged Performed By: #### L 500.2500, L100.0100 ####[facility] [address] [place], [address] CO2 Normal 21.0-32.0 [facility] Comment on above: Result Comment: Canc elled via OM: Order cancelled - Patient discharged Performed By: #### L 500.2500, L100.0100 ####[facility] [address] [place], [address] CREAT,SERUM Normal 0.70-1.20 [facility] Comment on above: Result Comment: Canc elled via OM: Order cancelled - Patient discharged Performed By: #### L 500.2500, L100.0100 ####[facility] [address] [place], [address] eGFR Normal >60 [facility] Comment on above: Result Comment: Canc elled via OM: Order cancelled - Patient discharged Performed By: #### L 500.2500, L100.0100 ####[facility] [address] [place], [address] GAP Normal 5-15 [facility] Comment on above: Result Comment: Canc elled via OM: Order cancelled - Patient discharged Performed By: #### L 500.2500, L100.0100 ####[facility] [address] [place], [address] GLU Normal 70-99 [facility] Comment on above: Result Comment: Canc elled via OM: Order cancelled - Patient discharged Performed By: #### L 500.2500, L100.0100 ####[facility] [address] [place], [address] Potassium Normal 3.3-5.1 [facility] Comment on above: Result Comment: Canc elled via OM: Order cancelled - Patient discharged Performed By: #### L 500.2500, L100.0100 ####[facility] [address] [place], [address] Basic Metabolic Profile (BMP) Normal 133-145 [facility] Comment on above: Result Comment: Canc elled via OM: Order cancelled - Patient discharged Performed By: #### L 500.2500, L100.0100 ####[facility] [address] [place], [address] CBC W/Diff, Automatedon 05-2 Absolute Neut Normal 2.0-7.7 [facility] Comment on above: Result Comment: Canc elled via OM: Order cancelled - Patient discharged Performed By: #### L 500.2500, L100.0100 ####[facility] [address] [place], [address] HCT Normal 37-47 [facility] Comment on above: Result Comment: Canc elled via OM: Order cancelled - Patient discharged Performed By: #### L 500.2500, L100.0100 ####[facility] [address] [place], [address] HGB Normal 12.0-15.0 [facility] Comment on above: Result Comment: Canc elled via OM: Order cancelled - Patient discharged Performed By: #### L 500.2500, L100.0100 ####[facility] [address] [place], [address] MCH Normal 27.0-32.0 [facility] Comment on above: Result Comment: Canc elled via OM: Order cancelled - Patient discharged Performed By: #### L 500.2500, L100.0100 ####[facility] [address] [place], [address] MCHC Normal 32-36 [facility] Comment on above: Result Comment: Canc elled via OM: Order cancelled - Patient discharged Performed By: #### L 500.2500, L100.0100 ####[facility] [address] [place], [address] MCV Normal 81-99 [facility] Comment on above: Result Comment: Canc elled via OM: Order cancelled - Patient discharged Performed By: #### L 500.2500, L100.0100 ####[facility] [address] [place], [address] NEUT% Normal 47-70 [facility] Comment on above: Result Comment: Canc elled via OM: Order cancelled - Patient discharged Performed By: #### L 500.2500, L100.0100 ####[facility] [address] [place], [address] PLT Normal 150-450 [facility] Comment on above: Result Comment: Canc elled via OM: Order cancelled - Patient discharged Performed By: #### L 500.2500, L100.0100 ####[facility] [address] [place], [address] RBC Normal 4.2-5.4 [facility] Comment on above: Result Comment: Canc elled via OM: Order cancelled - Patient discharged Performed By: #### L 500.2500, L100.0100 ####[facility] [address] [place], [address] RDW CV Normal 11.6-14.6 [facility] Comment on above: Result Comment: Canc elled via OM: Order cancelled - Patient discharged Performed By: #### L 500.2500, L100.0100 ####[facility] [address] [place], [address] RDW SD Normal 35.1-43.9 [facility] Comment on above: Result Comment: Canc elled via OM: Order cancelled - Patient discharged Performed By: #### L 500.2500, L100.0100 ####[facility] [address] [place], [address] WBC Normal 4.4-11.0 [facility] Comment on above: Result Comment: Canc elled via OM: Order cancelled - Patient discharged Performed By: #### L 500.2500, L100.0100 ####[facility] [address] [place], [address] MR/Denis 04-03-2025 MR/BMS.BVS Normal [facility] Basic Metabolic Profile (BMP )on 04-02-2025 BUN Normal 4-19 [facility] Comment on above: Result Comment: Canc elled via OM: Order cancelled - Patient discharged Performed By: #### L 500.2500, L100.0100 ####[facility] [address] [place], [address] BUN/CRE Normal 10-20 [facility] Comment on above: Result Comment: Canc elled via OM: Order cancelled - Patient discharged Performed By: #### L 500.2500, L100.0100 ####[facility] [address] [place], [address] Calcium Normal 7.6-11.0 [facility] Comment on above: Result Comment: Canc elled via OM: Order cancelled - Patient discharged Performed By: #### L 500.2500, L100.0100 ####[facility] [address] [place], [address] CL Normal 98-108 [facility] Comment on above: Result Comment: Canc elled via OM: Order cancelled - Patient discharged Performed By: #### L 500.2500, L100.0100 ####[facility] [address] [place], [address] CO2 Normal 21.0-32.0 [facility] Comment on above: Result Comment: Canc elled via OM: Order cancelled - Patient discharged Performed By: #### L 500.2500, L100.0100 ####[facility] [address] [place], [address] CREAT,SERUM Normal 0.70-1.20 [facility] Comment on above: Result Comment: Canc elled via OM: Order cancelled - Patient discharged Performed By: #### L 500.2500, L100.0100 ####[facility] [address] [place], [address] eGFR Normal >60 [facility] Comment on above: Result Comment: Canc elled via OM: Order cancelled - Patient discharged Performed By: #### L 500.2500, L100.0100 ####[facility] [address] [place], [address] GAP Normal 5-15 [facility] Comment on above: Result Comment: Canc elled via OM: Order cancelled - Patient discharged Performed By: #### L 500.2500, L100.0100 ####[facility] [address] [place], [address] GLU Normal 70-99 [facility] Comment on above: Result Comment: Canc elled via OM: Order cancelled - Patient discharged Performed By: #### L 500.2500, L100.0100 ####[facility] [address] [place], [address] Potassium Normal 3.3-5.1 [facility] Comment on above: Result Comment: Canc elled via OM: Order cancelled - Patient discharged Performed By: #### L 500.2500, L100.0100 ####[facility] [address] [place], [address] Basic Metabolic Profile (BMP) Normal 133-145 [facility] Comment on above: Result Comment: Canc elled via OM: Order cancelled - Patient discharged Performed By: #### L 500.2500, L100.0100 ####[facility] [address] [place], [address] CBC W/Diff, Automatedon 05-1 Absolute Neut Normal 2.0-7.7 [facility] Comment on above: Result Comment: Canc elled via OM: Order cancelled - Patient discharged Performed By: #### L 500.2500, L100.0100 ####[facility] [address] [place], [address] HCT Normal 37-47 [facility] Comment on above: Result Comment: Canc elled via OM: Order cancelled - Patient discharged Performed By: #### L 500.2500, L100.0100 ####[facility] [address] [place], [address] HGB Normal 12.0-15.0 [facility] Comment on above: Result Comment: Canc elled via OM: Order cancelled - Patient discharged Performed By: #### L 500.2500, L100.0100 ####[facility] [address] [place], [address] MCH Normal 27.0-32.0 [facility] Comment on above: Result Comment: Canc elled via OM: Order cancelled - Patient discharged Performed By: #### L 500.2500, L100.0100 ####[facility] [address] [place], [address] MCHC Normal 32-36 [facility] Comment on above: Result Comment: Canc elled via OM: Order cancelled - Patient discharged Performed By: #### L 500.2500, L100.0100 ####[facility] [address] [place], [address] MCV Normal 81-99 [facility] Comment on above: Result Comment: Canc elled via OM: Order cancelled - Patient discharged Performed By: #### L 500.2500, L100.0100 ####[facility] [facility] [address] [place], [address] NEUT% Normal 47-70 [facility] Comment on above: Result Comment: Canc elled via OM: Order cancelled - Patient discharged Performed By: #### L 500.2500, L100.0100 ####[facility] [address] [place], [address] PLT Normal 150-450 [facility] Comment on above: Result Comment: Canc elled via OM: Order cancelled - Patient discharged Performed By: #### L 500.2500, L100.0100 ####[facility] [address] [place], [address] RBC Normal 4.2-5.4 [facility] Comment on above: Result Comment: Canc elled via OM: Order cancelled - Patient discharged Performed By: #### L 500.2500, L100.0100 ####[facility] [address] [place], [address] RDW CV Normal 11.6-14.6 [facility] Comment on above: Result Comment: Canc elled via OM: Order cancelled - Patient discharged Performed By: #### L 500.2500, L100.0100 ####[facility] [address] [place], [address] RDW SD Normal 35.1-43.9 [facility] Comment on above: Result Comment: Canc elled via OM: Order cancelled - Patient discharged Performed By: #### L 500.2500, L100.0100 ####[facility] [address] [place], [address] WBC Normal 4.4-11.0 [facility] Comment on above: Result Comment: Canc elled via OM: Order cancelled - Patient discharged Performed By: #### L 500.2500, L100.0100 ####[facility] [address] [place], [address] CNOVon 03-27-2025 CNOV Office Visit (FAMPWS ) -------- GELY NEWMAN ([id number]) 1950 F Date Time Provider Department 03/27/25 10:00 AM YUMIKO WHITEHEAD During your visit today, we recorded the following information about you: Pulse Respiration Blood pressure 74/minute 16/minute 134/68 Yumiko Whitehead APRN.AUTOMOTIVE BUYER 03/27/2025 11:01 AM Signed 03/26/2025 Patient presents with: ER F/U: [facility] ED -03/20/25 Multiple falls, gangrene SADIE feet SUBJECTIVE: This is a 75 year old that is here today for Above Complaints. HOSPITAL/ER FOLLOW UP: Reason for visit: Recurrent falls, Which facility: [facility] transferred to [facility] Date of visit: 03/07/2025-03/11/2025 [facility] then to TCU 03/11/2025-03/19/2025 Diagnosis: UTI, Rhabdomyolysis, [...] mellitus (HCC) Coronary artery disease Dr. Ch Associate Director, 90% blockage- unable to do stenting Diabetes mellitus type 2 in obese Diabetic feet (HCC) Gangrene (HCC) 2012 RIGHT FOOT Hypertension Mild non proliferative diabetic retinopathy (HCC) 06/11/2013 Both eyes, Dr. Ortiz [facility]-03/25/2020 left mild, right moderate Multiple thyroid nodules last US 01/2015 Peripheral artery disease (HCC) due to Diabetes mellitus, Dr. Kwaku Moscoso Rotator cuff syndrome of left shoulder Dr. Deluna [facility] ALLERGIES Sulfa (Sulfonamide Antibiotics) MEDICATIONS Current Outpatient [...] Take 1 tablet by mouth once daily. Lkitpxei-Dews-Ord-Folic Acid 18-0.4 mg tab Take 1 tablet [...] Albumin:Creatinine Ratio due on 05/30/2024 Covid-19 Vaccine( - ) due on 07/20/2024 Diabetic Foot Exam due on 04/02/2025 Mammogram Screening due on 06/03/2025 HbA1C due on 05/31/2025 Dilated Retinal Exam due on (more content not included)... Normal [facility] Gabriel 03-27-2025 MARKN Telephone (CHANELL) -------- GELY NEWMAN ([id number]) 1950 F Date Time Provider Department 03/27/25 YUMIKO WHITEHEAD During your visit today, we recorded the following information about you: Yumiko Whitehead APRN.CNP 03/27/2025 10:59 AM Signed Please fax printed order for wyatt to [facility]. In my outbox. Yumiko Whitehead APRN.Michaela Moffett MA 03/30/2025 10:04 AM Signed Order, OV, discharge summary faxed to [facility]. Michaela Millan MA Allergies As of Date: [...] 1 tablet by mouth once daily. - Ynxzudxd-Uurr-Kvm-Folic Acid 18-0.4 mg tab Take 1 tablet [...] [L72.3, L08.9] 02/26/2019 Coronary artery disease involving te-moak heart *05/28/2019 Abnormal urine odor [R82.90] 05/28/2019 [...] Status:Closed by MICHAELA MILLAN on 03/30/25 Normal [facility] Basic Metabolic Profile (BMP )on 03-26-2025 BUN Normal 4-19 [facility] Comment on above: Result Comment: Canc elled via OM: Order cancelled - Patient discharged Performed By: #### L 500.2500, L100.0100 ####[facility] [address] [place], [address] BUN/CRE Normal 10-20 [facility] Comment on above: Result Comment: Canc elled via OM: Order cancelled - Patient discharged Performed By: #### L 500.2500, L100.0100 ####[facility] [address] [place], [address] Calcium Normal 7.6-11.0 [facility] Comment on above: Result Comment: Canc elled via OM: Order cancelled - Patient discharged Performed By: #### L 500.2500, L100.0100 ####[facility] [address] [place], [address] CL Normal 98-108 [facility] Comment on above: Result Comment: Canc elled via OM: Order cancelled - Patient discharged Performed By: #### L 500.2500, L100.0100 ####[facility] [address] [place], [address] CO2 Normal 21.0-32.0 [facility] Comment on above: Result Comment: Canc elled via OM: Order cancelled - Patient discharged Performed By: #### L 500.2500, L100.0100 ####[facility] [address] [place], [address] CREAT,SERUM Normal 0.70-1.20 [facility] Comment on above: Result Comment: Canc elled via OM: Order cancelled - Patient discharged Performed By: #### L 500.2500, L100.0100 ####[facility] [address] [place], [address] eGFR Normal >60 [facility] Comment on above: Result Comment: Canc elled via OM: Order cancelled - Patient discharged Performed By: #### L 500.2500, L100.0100 ####[facility] [address] [place], [address] GAP Normal 5-15 [facility] Comment on above: Result Comment: Canc elled via OM: Order cancelled - Patient discharged Performed By: #### L 500.2500, L100.0100 ####[facility] [address] [place], [address] GLU Normal 70-99 [facility] Comment on above: Result Comment: Canc elled via OM: Order cancelled - Patient discharged Performed By: #### L 500.2500, L100.0100 ####[facility] [address] [place], [address] Potassium Normal 3.3-5.1 [facility] Comment on above: Result Comment: Canc elled via OM: Order cancelled - Patient discharged Performed By: #### L 500.2500, L100.0100 ####[facility] [address] [place], [address] Basic Metabolic Profile (BMP) Normal 133-145 [facility] Comment on above: Result Comment: Canc elled via OM: Order cancelled - Patient discharged Performed By: #### L 500.2500, L100.0100 ####[facility] [address] [place], [address] CBC W/Diff, Automatedon 05-0 8-2024 Absolute Neut Normal 2.0-7.7 [facility] Comment on above: Result Comment: Canc elled via OM: Order cancelled - Patient discharged Performed By: #### L 500.2500, L100.0100 ####[facility] [address] [place], [address] HCT Normal 37-47 [facility] Comment on above: Result Comment: Canc elled via OM: Order cancelled - Patient discharged Performed By: #### L 500.2500, L100.0100 ####[facility] [address] [place], [address] HGB Normal 12.0-15.0 [facility] Comment on above: Result Comment: Canc elled via OM: Order cancelled - Patient discharged Performed By: #### L 500.2500, L100.0100 ####[facility] [address] [place], [address] MCH Normal 27.0-32.0 [facility] Comment on above: Result Comment: Canc elled via OM: Order cancelled - Patient discharged Performed By: #### L 500.2500, L100.0100 ####[facility] [address] [place], [address] MCHC Normal 32-36 [facility] Comment on above: Result Comment: Canc elled via OM: Order cancelled - Patient discharged Performed By: #### L 500.2500, L100.0100 ####[facility] [address] [place], [address] MCV Normal 81-99 [facility] Comment on above: Result Comment: Canc elled via OM: Order cancelled - Patient discharged Performed By: #### L 500.2500, L100.0100 ####[facility] [address] [place], [address] NEUT% Normal 47-70 [facility] Comment on above: Result Comment: Canc elled via OM: Order cancelled - Patient discharged Performed By: #### L 500.2500, L100.0100 ####[facility] [address] [place], [address] PLT Normal 150-450 [facility] Comment on above: Result Comment: Canc elled via OM: Order cancelled - Patient discharged Performed By: #### L 500.2500, L100.0100 ####[facility] [address] [place], [address] RBC Normal 4.2-5.4 [facility] Comment on above: Result Comment: Canc elled via OM: Order cancelled - Patient discharged Performed By: #### L 500.2500, L100.0100 ####[facility] [address] [place], [address] RDW CV Normal 11.6-14.6 [facility] Comment on above: Result Comment: Canc elled via OM: Order cancelled - Patient discharged Performed By: #### L 500.2500, L100.0100 ####[facility] [address] [place], [address] RDW SD Normal 35.1-43.9 [facility] Comment on above: Result Comment: Canc elled via OM: Order cancelled - Patient discharged Performed By: #### L 500.2500, L100.0100 ####[facility] [address] [place], [address] WBC Normal 4.4-11.0 [facility] Comment on above: Result Comment: Canc elled via OM: Order cancelled - Patient discharged Performed By: #### L 500.2500, L100.0100 ####[facility] [address] [place], [address] [facility] GELY NEWMAN ([id number]) 1950 Date Time Provider Department 03/26/25 RISHI VASQUEZ During your visit today, we recorded the following information about you: Lebron Jacome RN 03/26/2025 12:50 PM Signed [facility] - [facility]- reporting updated POC: plans to see [...] [facility]ed walker. No call back needed if pcp agrees. Clary Andres APRN.MARK 03/26/2025 1:31 PM Signed Agree. BP will be reassessed at appointment tomorrow. Let us know if not addressed at appointment tomorrow. Thank you, Clary Andres APRN.AUTOMOTIVE BUYER Allergies As of Date: 03/26/2025 Noted Allergy [...] 1 tablet by mouth once daily. - Hjabomtf-Tyvw-Uhf-Folic Acid 18-0.4 mg tab Take 1 tablet [...] [L72.3, L08.9] 02/26/2019 Coronary artery disease involving te-moak heart *05/28/2019 Abnormal urine odor [R82.90] 05/28/2019 [...] Encounter Status:Closed by SELMA GALEANO on 03/26/25 [facility] 03-24-2025 CNPN Telephone (FAMPWS) -------- GELY NEWMAN ([id number]) 1950 F Date Time Provider Department 03/24/25 [facility] During your visit today, we recorded the following information about you: Cleemncia Chapman RN 03/24/2025 3:02 PM Signed Ishaan PT calling from [facility] to report plan of care for [...] LPN - Fully Assessed Reason for Visit: [facility] HH PT POC [Other] Prescriptions as of 03/25/2025 [...] 1 tablet by mouth once daily. - Apjvevrd-Rzcz-Bhq-Folic Acid 18-0.4 mg tab Take 1 tablet [...] [L72.3, L08.9] 02/26/2019 Coronary artery disease involving te-moak heart *05/28/2019 Abnormal urine odor [R82.90] 05/28/2019 [...] Encounter Status:Closed by CLEMENCIA CHAPMAN on 03/25/25 [facility] 03-23-2025 CNPN Telephone (FAMPWS) -------- GELY NEWMAN ([id number]) 1950 F Date Time Provider Department 03/23/25 [facility] During your visit today, we recorded the following information about you: Melly Pinon LPN 03/23/2025 1:34 PM Signed Tatum with [facility] Nursing calls to report she saw pt [...] 1 tablet by mouth once daily. - Xkeiguqp-Yevk-Lio-Folic Acid 18-0.4 mg tab Take 1 tablet [...] [L72.3, L08.9] 02/26/2019 Coronary artery disease involving te-moak heart *05/28/2019 Abnormal urine odor [R82.90] 05/28/2019 [...] Status:Closed by JESENIA MCGEE on 03/24/25 Normal [facility] Bedside Glucoseon 03-20-2025 FINGERSTICK GLU 155 mg/dL High 74-106 [facility] Comment on above: Result Comment: JEREMIAS PADILLA OF PATIENT CARE PER NURSING PROTOCOL Performed By: #### L 501.080 ####[facility] [address] [place], [address] [facility] CNPN Telephone (FAMWS) -------- GELY NEWMAN ([id number]) 1950 F Date Time Provider Department 03/20/25 RISHI VASQUEZPWS During your visit today, we recorded the following information about you: Clemencia Chapman RN 03/20/2025 12:55 PM Signed Yvonne with [facility] HH calls to ask if provider would be willing to follow their discharge orders for SN, PT, OT. Patient discharged home today from [facility] after having hospitalization and rehab for falls and UTI. Call back number is [phone]. GORGE Bo Jordan L, DO 03/20/2025 5:03 PM Signed Yes DO Kit Ernst Krystle, RN 03/23/2025 8:30 AM Signed Call placed to Yvonne and notified of [...] 1 tablet by mouth once daily. - Ircqqaja-Evth-Hhm-Folic Acid 18-0.4 mg tab Take 1 tablet [...] [L72.3, L08.9] 02/26/2019 Coronary artery disease involving te-moak heart *05/28/2019 Abnormal urine odor [R82.90] 05/28/2019 [...] Status:Closed by CLEMENCIA CHAPMAN on 03/23/25 Normal [facility] deOrdered By: Phong Solomon on 03-20-2025 Glucose [Mass/Vol] 155 mg/dL High 74-106 [facility] Comment on above: MANAGEMENT OF PATIEN T CARE PER NURSING PROTOCOL Absolute lymphocyte countOrd ered By: Phong Solomon on 03-19-2025 Lymphocytes Auto (Unsp spec) [#/Vol] 1.25 10*3/uL 0.83-4.51 [facility] Absolute neutrophil countOrd ered By: Phong Solomon on 03-19-2025 Neutrophils (Bld) [#/Vol] 3.5 10*3/uL 2.0-7.7 [facility] Anion gap in Serum or Plasma Ordered By: Phong Solomon on 03-19-2025 Anion gap [Moles/Vol] 8 mmol[facility] Automated lymphocyte count a s percentage of total leukocytesOrdered By: Phong Solomon on 03-19-2025 Lymphocytes/100 WBC Auto (Unsp spec) 22.0 % 19-41 [facility] BRCon 03-19-2025 RC Normal [facility] Comment on above: Result Comment: [id number] AP RC TRANSFUSED 03/19/25 [id number] AP RC TRANSFUSED 03/19/25 1004 Performed By: #### B RC, BTS ####[facility] [address] [place], [address] BUN/creatinine ratioOrdered By: Phong Solomon on 03-19-2025 Urea nitrogen/Creatinine [Mass ratio] 22.6 mg/mg High 10-20 [facility] Basic Metabolic Profile (BMP )on 03-19-2025 BUN/CRE 22.6 RATIO High 10- [facility] Comment on above: Performed By: #### L 500.2500, L100.0100 ####[facility] [address] [place], [address] Calcium [Mass/Vol] 8.6 mg/dL Normal 7.6-11.0 [facility] Comment on above: Performed By: #### L 500.2500, L100.0100 ####[facility] [address] [place], [address] Chloride [Moles/Vol] 112 mmol/L High 98-108 [facility] Comment on above: Performed By: #### L 500.2500, L100.0100 ####[facility] [address] [place], [address] CO2 [Moles/Vol] 22.1 mmol/L Normal 21.0-32.0 [facility] Comment on above: Performed By: #### L 500.2500, L100.0100 ####[facility] [address] [place], [address] Creatinine [Mass/Vol] 1.47 mg/dL High 0.70-1.20 [facility] Comment on above: Performed By: #### L 500.2500, L100.0100 ####[facility] [address] [place], [address] ECRCL 35.30 ml/min Low 50-250 [facility] Comment on above: Performed By: #### L 500.2500, L100.0100 ####[facility] [address] [place], [address] GAP 8 Normal 5-15 [facility] Comment on above: Performed By: #### L 500.2500, L100.0100 ####[facility] [address] [place], [address] GFR/1.73 sq M.predicted among non-blacks MDRD (S/P/Bld) [Vol rate/Area] 37 mL/min/{1.73_m2} Low >60 [facility] Comment on above: Result Comment: mL/m in/1.73m2 CKD-EPI Creatinine Equation (2020) Performed By: #### L 500.2500, L100.0100 ####[facility] [address] [place], [address] Glucose [Mass/Vol] 111 mg/dL High 70-99 [facility] Comment on above: Performed By: #### L 500.2500, L100.0100 ####[facility] [address] [place], [address] Potassium [Moles/Vol] 4.2 mmol/L Normal 3.3-5.1 [facility] Comment on above: Performed By: #### L 500.2500, L100.0100 ####[facility] [address] [place], [address] Sodium [Moles/Vol] 142 mmol/L Normal 133-145 [facility] Comment on above: Performed By: #### L 500.2500, L100.0100 ####[facility] [address] [place], [address] Urea nitrogen [Mass/Vol] 33 mg/dL High 4-19 [facility] Comment on above: Performed By: #### L 500.2500, L100.0100 ####[facility] [address] [place], [address] Basophil percentageOrdered B y: Phong Luongok on 03-19-2025 Basophils/100 WBC (Bld) 1.4 % High 0-1 [facility] Bedside Glucoseon 03-19-2025 FINGERSTICK GLU 230 mg/dL High 74-106 [facility] Comment on above: Result Comment: JEREMIAS GEMENT OF PATIENT CARE PER NURSING PROTOCOL Performed By: #### L 501.080 ####[facility] [address] [place], [address] FINGERSTICK GLU 330 mg/dL High 74-106 [facility] Comment on above: Result Comment: JEREMIAS GEMENT OF PATIENT CARE PER NURSING PROTOCOL Performed By: #### L 501.080 ####[facility] [address] [place], [address] FINGERSTICK GLU 238 mg/dL High 74-106 [facility] Comment on above: Result Comment: JEREMIAS GEMENT OF PATIENT CARE PER NURSING PROTOCOL Performed By: #### L 501.080 ####[facility] [address] [place], [address] FINGERSTICK GLU 103 mg/dL Normal 74-106 [facility] Comment on above: Result Comment: JEREMIAS GEMENT OF PATIENT CARE PER NURSING PROTOCOL Performed By: #### L 501.080 ####[facility] [address] [place], [address] FINGERSTICK GLU 64 mg/dL Low 74-106 [facility] Comment on above: Result Comment: JEREMIAS GEMENT OF PATIENT CARE PER NURSING PROTOCOL Performed By: #### L 501.080 ####[facility] [address] [place], [address] FINGERSTICK GLU 177 mg/dL High 74-106 [facility] Comment on above: Result Comment: JEREMIAS GEMENT OF PATIENT CARE PER NURSING PROTOCOL Performed By: #### L 501.080 ####[facility] [address] [place], [address] FINGERSTICK GLU 106 mg/dL Normal 74-106 [facility] Comment on above: Result Comment: JEREMIAS GEMENT OF PATIENT CARE PER NURSING PROTOCOL Performed By: #### L 501.080 ####[facility] [address] [place], [address] CBC W/Diff, Automatedon 05-0 -2024 Absolute Lymph 1.25 X10 3/uL Normal 0.83-4.51 [facility] Comment on above: Performed By: #### L 500.2500, L100.0100 ####[facility] [address] [place], [address] Absolute Neut 3.5 X10 3/uL Normal 2.0-7.7 [facility] Comment on above: Performed By: #### L 500.2500, L100.0100 ####[facility] [address] [place], [address] Basophils/100 WBC (Bld) 1.4 % High 0-1 [facility] Comment on above: Performed By: #### L 500.2500, L100.0100 ####[facility] [address] [place], [address] Eosinophils/100 WBC (Bld) 3.5 % Normal 0-5 [facility] Comment on above: Performed By: #### L 500.2500, L100.0100 ####[facility] [address] [place], [address] Erythrocyte distribution width (RBC) [Ratio] 16.2 % High 11.6-14.6 [facility] Comment on above: Performed By: #### L 500.2500, L100.0100 ####[facility] [address] [place], [address] Hematocrit (Bld) [Volume fraction] 24.1 % Low 37-47 [facility] Comment on above: Performed By: #### L 500.2500, L100.0100 ####[facility] [address] [place], [address] Hemoglobin (Bld) [Mass/Vol] 7.6 g/dL Low 12.0-15.0 [facility] Comment on above: Performed By: #### L 500.2500, L100.0100 ####[facility] [address] [place], [address] IG% 0.400 Normal 0.0-0.9 [facility] Comment on above: Result Comment: IG% - Immature Granulocytes (promyelocytes, myelocytes andmetamyelocytes) > 1% indicates that a LEFT SHIFT is Present. Performed By: #### L 500.2500, L100.0100 ####[facility] [address] [place], [address] Lymphocytes/100 WBC (Bld) 22.0 % Normal 19-41 [facility] Comment on above: Performed By: #### L 500.2500, L100.0100 ####[facility] [address] [place], [address] MCH (RBC) [Entitic mass] 29.1 pg Normal 27.0-32.0 [facility] Comment on above: Performed By: #### L 500.2500, L100.0100 ####[facility] [address] [place], [address] MCHC (RBC) [Mass/Vol] 31.5 g/dL Low 32-36 [facility] Comment on above: Performed By: #### L 500.2500, L100.0100 ####[facility] [address] [place], [address] MCV (RBC) [Entitic vol] 92.3 fL Normal 81-99 [facility] Comment on above: Performed By: #### L 500.2500, L100.0100 ####[facility] [address] [place], [address] Monocytes/100 WBC (Bld) 11.1 % High 0-10 [facility] Comment on above: Performed By: #### L 500.2500, L100.0100 ####[facility] [address] [place], [address] Neutrophils/100 WBC (Bld) 61.6 % Normal 47-70 [facility] Comment on above: Performed By: #### L 500.2500, L100.0100 ####[facility] [address] [place], [address] Nucleated RBC (Bld) [#/Vol] 0 10*3/uL Normal 0-5 [facility] Comment on above: Performed By: #### L 500.2500, L100.0100 ####[facility] [address] [place], [address] Platelet mean volume (Bld) [Entitic vol] 11.7 fL Normal 6.2-12.0 [facility] Comment on above: Performed By: #### L 500.2500, L100.0100 ####[facility] [address] [place], [address] Platelets (Bld) [#/Vol] 159 10*3/uL Normal 150-450 [facility] Comment on above: Performed By: #### L 500.2500, L100.0100 ####[facility] [address] [place], [address] RBC (Bld) [#/Vol] 2.61 10*6/uL Low 4.2-5.4 [facility] Comment on above: Performed By: #### L 500.2500, L100.0100 ####[facility] [address] [place], [address] RDW SD 52.6 fl High 35.1-43.9 [facility] Comment on above: Performed By: #### L 500.2500, L100.0100 ####[facility] [address] [place], [address] WBC (Bld) [#/Vol] 5.7 10*3/uL Normal 4.4-11.0 [facility] Comment on above: Performed By: #### L 500.2500, L100.0100 ####[facility] [address] [place], [address] CTA Abd w/Runoff W/WO Contra ston 03-19-2025 CTA Abd w/Runoff W/WO Contrast Normal [facility] Carbon dioxide, total [Moles /volume] in Central venous bloodOrdered By: Phong Solomon on 03-19-2025 CO2 [Moles/Vol] 22.1 mmol/L 21.0-32.0 [facility] Chloride assayOrdered By: Addy Solomon on 03-19-2025 Chloride [Moles/Vol] 112 mmol/L High 98-108 [facility] Eosinophil percentageOrdered By: Phong Solomon on 03-19-2025 Eosinophils/100 WBC (Bld) 3.5 % 0-5 [facility] Erythrocyte distribution wid th ratioOrdered By: Phong Solomon on 03-19-2025 Erythrocyte distribution width (RBC) [Ratio] 16.2 % High 11.6-14.6 [facility] Erythrocyte distribution wid th standard deviationOrdered By: Phong Solomon on 03-19-2025 Erythrocyte distribution width (RBC) [Ratio] 52.6 fl High 35.1-43.9 [facility] Glomerular filtration rate ( GFR) estimation/1.73 sq m using serum, plasma, or whole bOrdered By: Phong Solomon on 03-19-2025 GFR/1.73 sq M.predicted among non-blacks MDRD (S/P/Bld) [Vol rate/Area] 37 mL/min/{1.73_m2} Low >60 [facility] Comment on above: mL/min/1.73m2 CKD-EP I Creatinine Equation (2020) Hematocrit Auto (Bld) [Volum e fraction]Ordered By: Phong Solomon on 03-19-2025 Hematocrit (Bld) [Volume fraction] 24.1 % Low 37-47 [facility] Hemoglobin measurementOrdere d By: Phong Solomon on 03-19-2025 Hemoglobin (Bld) [Mass/Vol] 7.6 g/dL Low 12.0-15.0 [facility] Immature granulocytes/100 WB C Auto (Bld)Ordered By: Phong Solomon on 03-19-2025 Immature granulocytes/100 WBC (Bld) 0.400 % 0.0-0.9 [facility] Comment on above: IG% - Immature Granu locytes (promyelocytes, myelocytes and metamyelocytes) > 1% indicates that a LEFT SHIFT is Present. MCV (mean corpuscular volume ) determinationOrdered By: Phong Solomon 03-19-2025 MCV (RBC) [Entitic vol] 92.3 fL 81-99 [facility] Mean corpuscular hemoglobin (MCH) determinationOrdered By: [facility] 03-[facility]2025 MCH (RBC) [Entitic mass] 29.1 pg 27.0-32.0 [facility] Mean corpuscular hemoglobin concentration (MCHC) determinationOrdered By: Phong Servando 03-19-2025 MCHC (RBC) [Mass/Vol] 31.5 g/dL Low 32-36 [facility] Mean platelet volume determi nationOrdered By: Phong Solomon 03-19-2025 Platelet mean volume (Bld) [Entitic vol] 11.7 fL 6.2-12.0 [facility] Monocyte percentageOrdered B y: Phong Solomon 03-19-2025 Monocytes/100 WBC (Bld) 11.1 % High 0-10 [facility] Neutrophil percentageOrdered By: Phong Solomon 03-19-2025 Neutrophils/100 WBC (Bld) 61.6 % 47-70 [facility] Nucleated red blood cell per centageOrdered By: Phong Solomon on 03-19-2025 Nucleated RBC/100 WBC (Bld) [Ratio] 0 % 0-5 [facility] Platelet countOrdered By: Addy Solomon on 03-19-2025 Platelets (Bld) [#/Vol] 159 10*3/uL 150-450 [facility] Potassium measurement (mass/ volume)Ordered By: Phong Solomon on 03-19-2025 Potassium (Unsp spec) [Mass/Vol] 4.2 mmol/L 3.3-5.1 [facility] RBC Auto (Bld) [#/Vol]Ordere d By: Phong Solomon on 03-19-2025 RBC (Bld) [#/Vol] 2.61 10*6/uL Low 4.2-5.4 [facility] Serum creatinine measurement (mass/volume)Ordered By: Phong Solomon on 03-19-2025 Creatinine [Mass/Vol] 1.47 mg/dL High 0.70-1.20 [facility] Serum glucose measurement (m ass/volume)Ordered By: Phong Solomon on 03-19-2025 Glucose [Mass/Vol] 111 mg/dL High 70-99 [facility] Serum or plasma calcium natalia urement (mass/volume)Ordered By: Phong Solomon on 03-19-2025 Calcium [Mass/Vol] 8.6 mg/dL 7.6-11.0 [facility] Serum or plasma urea nitroge n measurement (mass/volume)Ordered By: Phong Solomon on 03-19-2025 Urea nitrogen [Mass/Vol] 33 mg/dL High 4-19 [facility] Sodium levelOrdered By: Phong Solomon on 03-19-2025 Sodium [Moles/Vol] 142 mmol/L 133-145 [facility] Stool Occult Blood iFOBon STOB Negative Normal [facility] Comment on above: Performed By: #### M 100.7900 ####[facility] [address] [place], [address] Stool gastrointestinal hemog lobin detection by immunologic methodOrdered By: Phong Solomon on 03-19-2025 Lower GI hemoglobin IA Ql (Stl) [facility] Type AND Screenon 03-19-2025 Ab SCREEN GEL Negative Normal [facility] Comment on above: Order Comment: CMV N EG? NNumber of units to transfuse: 2Reason for Ordering Blood: AcuteAre the blood/blood products to be transfused? YIs the patient having/had surgery? Jordan Fitzgerald Performed By: #### B MILI BTS ####[facility] [address] [place], [address] ABO and Rh group Nom (Bld) Blood group A Rh(D) positive Normal [facility] Comment on above: Order Comment: CMV N EG? NNumber of units to transfuse: 2Reason for Ordering Blood: AcuteAre the blood/blood products to be transfused? YIs the patient having/had surgery? Jordan Fitzgerald Performed By: #### B MILI BTS ####[facility] [address] [place], [address] White blood cell (WBC) count Ordered By: Phong Solomon on 03-19-2025 WBC (Bld) [#/Vol] 5.7 10*3/uL 4.4-11.0 [facility] Bedside Glucoseon 03-18-2025 FINGERSTICK GLU 158 mg/dL High 74-106 [facility] Comment on above: Result Comment: JEREMIAS GEMENT OF PATIENT CARE PER NURSING PROTOCOL Performed By: #### L 501.080 ####[facility] [address] [place], [address] FINGERSTICK GLU 205 mg/dL High 74-106 [facility] Comment on above: Result Comment: JEREMIAS GEMENT OF PATIENT CARE PER NURSING PROTOCOL Performed By: #### L 501.080 ####[facility] [address] [place], [address] FINGERSTICK GLU 235 mg/dL High 74-106 [facility] Comment on above: Result Comment: JEREMIAS GEMENT OF PATIENT CARE PER NURSING PROTOCOL Performed By: #### L 501.080 ####[facility] [address] [place], [address] FINGERSTICK GLU 89 mg/dL Normal 74-106 [facility] Comment on above: Result Comment: JEREMIAS GEMENT OF PATIENT CARE PER NURSING PROTOCOL Performed By: #### L 501.080 ####[facility] [address] [place], [address] Bedside Glucoseon 03-17-2025 FINGERSTICK GLU 129 mg/dL High 74-106 [facility] Comment on above: Result Comment: JEREMIAS GEMENT OF PATIENT CARE PER NURSING PROTOCOL Performed By: #### L 501.080 ####[facility] [address] [place], [address] FINGERSTICK GLU 101 mg/dL Normal 74-106 [facility] Comment on above: Result Comment: JEREMIAS GEMENT OF PATIENT CARE PER NURSING PROTOCOL Performed By: #### L 501.080 ####[facility] [address] [place], [address] FINGERSTICK GLU 120 mg/dL High 74-106 [facility] Comment on above: Result Comment: JEREMIAS GEMENT OF PATIENT CARE PER NURSING PROTOCOL Performed By: #### L 501.080 ####[facility] [address] [place], [address] Bedside Glucoseon 03-16-2025 FINGERSTICK GLU 154 mg/dL High 74-106 [facility] Comment on above: Result Comment: JEREMIAS GEMENT OF PATIENT CARE PER NURSING PROTOCOL Performed By: #### L 501.080 ####[facility] [address] [place], [address] FINGERSTICK GLU 127 mg/dL High -106 [facility] Comment on above: Result Comment: JEREMIAS GEMENT OF PATIENT CARE PER NURSING PROTOCOL Performed By: #### L 501.080 ####[facility] [address] [place], [address] FINGERSTICK GLU 162 mg/dL High 74-106 [facility] Comment on above: Result Comment: JEREMIAS GEMENT OF PATIENT CARE PER NURSING PROTOCOL Performed By: #### L 501.080 ####[facility] [address] [place], [address] FINGERSTICK GLU 120 mg/dL High [address] [place] [address] Comment on above: Result Comment: JEREMIAS GEMENT OF PATIENT CARE PER NURSING PROTOCOL Performed By: #### L 501.080 ####[facility] [address] [place], [address] Bedside Glucoseon 03-15-2025 FINGERSTICK GLU 247 mg/dL High [address] [place] [address] Comment on above: Result Comment: JEREMIAS GEMENT OF PATIENT CARE PER NURSING PROTOCOL Performed By: #### L 501.080 ####[facility] [address] [place], [address] FINGERSTICK GLU 256 mg/dL High [address] [place] [address] Comment on above: Result Comment: JEREMIAS GEMENT OF PATIENT CARE PER NURSING PROTOCOL Performed By: #### L 501.080 ####[facility] [address] [place], [address] FINGERSTICK GLU 286 mg/dL High [address] [place] [address] Comment on above: Result Comment: JEREMIAS GEMENT OF PATIENT CARE PER NURSING PROTOCOL Performed By: #### L 501.080 ####[facility] [address] [place], [address] FINGERSTICK GLU 161 mg/dL High [address] [place] [address] Comment on above: Result Comment: JEREMIAS GEMENT OF PATIENT CARE PER NURSING PROTOCOL Performed By: #### L 501.080 ####[facility] [address] [place], [address] Bedside Glucoseon 03-14-2025 FINGERSTICK GLU 228 mg/dL High [address] [place] [address] Comment on above: Result Comment: JEREMIAS GEMENT OF PATIENT CARE PER NURSING PROTOCOL Performed By: #### L 501.080 ####[facility] [address] [place], [address] FINGERSTICK GLU 201 mg/dL High -106 [facility] Comment on above: Result Comment: JEREMIAS GEMENT OF PATIENT CARE PER NURSING PROTOCOL Performed By: #### L 501.080 ####[facility] [address] [place], [address] FINGERSTICK GLU 204 mg/dL High [facility]106 [facility] Comment on above: Result Comment: JEREMIAS GEMENT OF PATIENT CARE PER NURSING PROTOCOL Performed By: #### L 501.080 ####[facility] [address] [place], [address] FINGERSTICK GLU 163 mg/dL High [address] [place] [address] Comment on above: Result Comment: JEREMIAS GEMENT OF PATIENT CARE PER NURSING PROTOCOL Performed By: #### L 501.080 ####[facility] [address] [place], [address] Bedside Glucoseon 03-13-2025 FINGERSTICK GLU 258 mg/dL High [address] [place] [address] Comment on above: Result Comment: JEREMIAS GEMENT OF PATIENT CARE PER NURSING PROTOCOL Performed By: #### L 501.080 ####[facility] [address] [place], [address] FINGERSTICK GLU 286 mg/dL High [address] [place] [address] Comment on above: Result Comment: JEREMIAS GEMENT OF PATIENT CARE PER NURSING PROTOCOL Performed By: #### L 501.080 ####[facility] [address] [place], [address] FINGERSTICK GLU 217 mg/dL High [address] [place] [address] Comment on above: Result Comment: JEREMIAS GEMENT OF PATIENT CARE PER NURSING PROTOCOL Performed By: #### L 501.080 ####[facility] [address] [place], [place], [address] FINGERSTICK GLU 132 mg/dL High 74-106 [facility] Comment on above: Result Comment: JEREMIAS PADILLA OF PATIENT CARE PER NURSING PROTOCOL Performed By: #### L 501.080 ####[facility] [address] [place], [place], [address] Calculated very low density lipoprotein (VLDL) cholesterol measurementOrdered By: Phong Solomon on 03-13-2025 Calculated very low density lipoprotein (VLDL) cholesterol measurement 25 mg/dL 5-40 [facility] Consultation - Surgicalon Consultation - Surgical Normal [facility] LDL calc ser/plasOrdered By: Phong Solomon on 03-13-2025 Cholesterol in LDL [Mass/Vol] 39 mg/dL [facility] Comment on above: Uhbmwfmxhd=354-224 m g/dL & Higher Gdpu=461 mg/dL or greater Lipid Profileon 03-13-2025 CHOL:HDL 2.85 Normal [facility] Comment on above: Performed By: #### L 500.4100 ####[facility] [address] [place], [place], [address] Cholesterol [Mass/Vol] 99 mg/dL Normal <=200 [facility] Comment on above: Result Comment: Chol esterol level, Desirable <200 mg/dLBorderline high cholesterol 200-239 mg/dLHigh cholesterol >=240 mg/dLRecommendations of the NCEP Adult Treatment Panel for thefollowing risk-cutoff thresholds for the [place] Americanpulation. Performed By: #### L 500.4100 ####[facility] [address] [place], [place], [address] Cholesterol in HDL [Mass/Vol] 35 mg/dL Low [facility] Comment on above: Result Comment: Ligia onann marie Cholesterol Education Program (NCEP) guidelines:<40 mg/dL: Low HDL-cholesterol (major risk factor for CHD)>= 60 mg/dL: High HDL-cholesterol (negative risk factor forCHD)HDL-cholesterol is affected by a number of factors, e.g.smoking, exercise, hormones, sex and age. Performed By: #### L 500.4100 ####[facility] [address] [place], [address] Cholesterol in LDL [Mass/Vol] 39 mg/dL Normal [facility] Comment on above: Result Comment: Bord mpxtct=527-196 mg/dL Higher Pfrs=912 mg/dL or greater Performed By: #### L 500.4100 ####[facility] [address] [place], [address] Cholesterol in VLDL [Mass/Vol] 25 mg/dL Normal 5-40 [facility] Comment on above: Performed By: #### L 500.4100 ####[facility] [address] [place], [address] Triglyceride [Mass/Vol] 126 mg/dL Normal [facility] Comment on above: Result Comment: The drugs N-Acetylcysteine and Metamizole may falselydepress this assay.Normal range: <150 mg/dLBorderline High: 150-199 mg/dLHigh: 200-499 mg/dLVery High: >500 mg/dL Performed By: #### L 500.4100 ####[facility] [address] [place], [address] Screening total cholesterol/ high density lipoprotein (HDL) cholesterol ratioOrdered By: Phong Solomon on 03-13-2025 Cholesterol.total/Chol esterol in HDL [Mass ratio] 2.85 {ratio} [facility] Serum or plasma cholesterol in HDL measurement (mass/volume)Ordered By: Phong Solomon on 03-13-2025 Cholesterol in HDL [Mass/Vol] 35 mg/dL Low >40 [facility] Comment on above: National Cholesterol Education Program (NCEP) guidelines:<40 mg/dL: Low HDL-cholesterol (major risk factor for CHD)>= 60 mg/dL: High HDL-cholesterol (negative risk factor for CHD)HDL-cholesterol is affected by a number of factors, e.g. smoking, exercise, hormones, sex and age. Serum or plasma cholesterol measurement (mass/volume)Ordered By: Phong Solomon on 03-13-2025 Cholesterol [Mass/Vol] 99 mg/dL <201 [facility] Comment on above: Cholesterol level, D esirable <200 mg/dLBorderline high cholesterol 200-239 mg/dLHigh cholesterol >=240 mg/dLRecommendations of the NCEP Adult Treatment Panel for the following risk-cutoff thresholds for the [place] population. Triglycerides measurementOrd ered By: Phong Solomon on 03-13-2025 Triglyceride [Mass/Vol] 126 mg/dL <199 [facility] Comment on above: The drugs N-Acetylcy steine and Metamizole may falsely depress this assay. Normal range: <150 mg/dLBorderline High: 150-199 mg/dLHigh: 200-499 mg/dLVery High: >500 mg/dL Basic Metabolic Profile (BMP )on 03-12-2025 BUN/CRE 33.8 RATIO High 10-20 [facility] Comment on above: Performed By: #### L 500.2500, L100.0100 ####[facility] [address] [place], [address] Calcium [Mass/Vol] 8.9 mg/dL Normal 7.6-11.0 [facility] Comment on above: Performed By: #### L 500.2500, L100.0100 ####[facility] [address] [place], [address] Chloride [Moles/Vol] 110 mmol/L High 98-108 [facility] Comment on above: Performed By: #### L 500.2500, L100.0100 ####[facility] [address] [place], [address] CO2 [Moles/Vol] 19.8 mmol/L Low 21.0-32.0 [facility] Comment on above: Performed By: #### L 500.2500, L100.0100 ####[facility] [address] [place], [address] Creatinine [Mass/Vol] 1.48 mg/dL High 0.70-1.20 [facility] Comment on above: Performed By: #### L 500.2500, L100.0100 ####[facility] [address] [place], [address] ECRCL 34.76 ml/min Low 50-250 [facility] Comment on above: Performed By: #### L 500.2500, L100.0100 ####[facility] [address] [place], [address] GAP 12 Normal 5-15 [facility] Comment on above: Performed By: #### L 500.2500, L100.0100 ####[facility] [address] [place], [address] GFR/1.73 sq M.predicted among non-blacks MDRD (S/P/Bld) [Vol rate/Area] 37 mL/min/{1.73_m2} Low >60 [facility] Comment on above: Result Comment: mL/m in/1.73m2 CKD-EPI Creatinine Equation (2020) Performed By: #### L 500.2500, L100.0100 ####[facility] [address] [place], [address] Glucose [Mass/Vol] 137 mg/dL High 70-99 [facility] Comment on above: Performed By: #### L 500.2500, L100.0100 ####[facility] [address] [place], [address] Potassium [Moles/Vol] 4.6 mmol/L Normal 3.3-5.1 [facility] Comment on above: Performed By: #### L 500.2500, L100.0100 ####[facility] [address] [place], [address] Sodium [Moles/Vol] 141 mmol/L Normal 133-145 [facility] Comment on above: Performed By: #### L 500.2500, L100.0100 ####[facility] [address] [place], [address] Urea nitrogen [Mass/Vol] 50 mg/dL High 4-19 [facility] Comment on above: Performed By: #### L 500.2500, L100.0100 ####[facility] [address] [place], [address] BUN Normal 4-19 [facility] Comment on above: Result Comment: Canc elled via OM: Order cancelled - Patient discharged Performed By: #### L 100.0100, L500.2500 ####[facility] [address] [place], [address] BUN/CRE Normal 10-20 [facility] Comment on above: Result Comment: Canc elled via OM: Order cancelled - Patient discharged Performed By: #### L 100.0100, L500.2500 ####[facility] [address] [place], [address] Calcium Normal 7.6-11.0 [facility] Comment on above: Result Comment: Canc elled via OM: Order cancelled - Patient discharged Performed By: #### L 100.0100, L500.2500 ####[facility] [address] [place], [address] CL Normal 98-108 [facility] Comment on above: Result Comment: Canc elled via OM: Order cancelled - Patient discharged Performed By: #### L 100.0100, L500.2500 ####[facility] [address] [place], [address] CO2 Normal 21.0-32.0 [facility] Comment on above: Result Comment: Canc elled via OM: Order cancelled - Patient discharged Performed By: #### L 100.0100, L500.2500 ####[facility] [address] [place], [address] CREAT,SERUM Normal 0.70-1.20 [facility] Comment on above: Result Comment: Canc elled via OM: Order cancelled - Patient discharged Performed By: #### L 100.0100, L500.2500 ####[facility] [address] [place], [address] eGFR Normal >60 [facility] Comment on above: Result Comment: Canc elled via OM: Order cancelled - Patient discharged Performed By: #### L 100.0100, L500.2500 ####[facility] [address] [place], [address] GAP Normal 5-15 [facility] Comment on above: Result Comment: Canc elled via OM: Order cancelled - Patient discharged Performed By: #### L 100.0100, L500.2500 ####[facility] [address] [place], [address] GLU Normal 70-99 [facility] Comment on above: Result Comment: Canc elled via OM: Order cancelled - Patient discharged Performed By: #### L 100.0100, L500.2500 ####[facility] [address] [place], [address] Potassium Normal 3.3-5.1 [facility] Comment on above: Result Comment: Canc elled via OM: Order cancelled - Patient discharged Performed By: #### L 100.0100, L500.2500 ####[facility] [address] [place], [address] Basic Metabolic Profile (BMP) Normal 133-145 [facility] Comment on above: Result Comment: Canc elled via OM: Order cancelled - Patient discharged Performed By: #### L 100.0100, L500.2500 ####[facility] [address] [place], [address] Bedside Glucoseon 03-12-2025 FINGERSTICK GLU 220 mg/dL High 74-106 [facility] Comment on above: Result Comment: JEREMIAS GEMENT OF PATIENT CARE PER NURSING PROTOCOL Performed By: #### L 501.080 ####[facility] [address] [place], [address] FINGERSTICK GLU 276 mg/dL High 74-106 [facility] Comment on above: Result Comment: JEREMIAS GEMENT OF PATIENT CARE PER NURSING PROTOCOL Performed By: #### L 501.080 ####[facility] [address] [place], [address] FINGERSTICK GLU 315 mg/dL High 74-106 [facility] Comment on above: Result Comment: JEREMIAS GEMENT OF PATIENT CARE PER NURSING PROTOCOL Performed By: #### L 501.080 ####[facility] [address] [place], [address] FINGERSTICK GLU 129 mg/dL High 74-106 [facility] Comment on above: Result Comment: JEREMIAS GEMENT OF PATIENT CARE PER NURSING PROTOCOL Performed By: #### L 501.080 ####[facility] [address] [place], [address] CBC W/Diff, Automatedon 04-2 Absolute Lymph 1.65 X10 3/uL Normal 0.83-4.51 [facility] Comment on above: Performed By: #### L 500.2500, L100.0100 ####[facility] [address] [place], [address] Absolute Neut 6.7 X10 3/uL Normal 2.0-7.7 [facility] Comment on above: Performed By: #### L 500.2500, L100.0100 ####[facility] [address] [place], [address] Basophils/100 WBC (Bld) 0.7 % Normal 0-1 [facility] Comment on above: Performed By: #### L 500.2500, L100.0100 ####[facility] [address] [place], [address] Eosinophils/100 WBC (Bld) 2.9 % Normal 0-5 [facility] Comment on above: Performed By: #### L 500.2500, L100.0100 ####[facility] [address] [place], [address] Erythrocyte distribution width (RBC) [Ratio] 15.8 % High 11.6-14.6 [facility] Comment on above: Performed By: #### L 500.2500, L100.0100 ####[facility] [address] [place], [address] Hematocrit (Bld) [Volume fraction] 29.0 % Low 37-47 [facility] Comment on above: Performed By: #### L 500.2500, L100.0100 ####[facility] [address] [place], [address] Hemoglobin (Bld) [Mass/Vol] 9.0 g/dL Low 12.0-15.0 [facility] Comment on above: Performed By: #### L 500.2500, L100.0100 ####[facility] [address] [place], [address] IG% 1.000 High 0.0-0.9 [facility] Comment on above: Result Comment: IG% - Immature Granulocytes (promyelocytes, myelocytes andmetamyelocytes) > 1% indicates that a LEFT SHIFT is Present. Performed By: #### L 500.2500, L100.0100 ####[facility] [address] [place], [address] Lymphocytes/100 WBC (Bld) 16.9 % Low 19-41 [facility] Comment on above: Performed By: #### L 500.2500, L100.0100 ####[facility] [address] [place], [address] MCH (RBC) [Entitic mass] 28.7 pg Normal 27.0-32.0 [facility] Comment on above: Performed By: #### L 500.2500, L100.0100 ####[facility] [address] [place], [address] MCHC (RBC) [Mass/Vol] 31.0 g/dL Low 32-36 [facility] Comment on above: Performed By: #### L 500.2500, L100.0100 ####[facility] [address] [place], [address] MCV (RBC) [Entitic vol] 92.4 fL Normal 81-99 [facility] Comment on above: Performed By: #### L 500.2500, L100.0100 ####[facility] [address] [place], [address] Monocytes/100 WBC (Bld) 10.2 % High 0-10 [facility] Comment on above: Performed By: #### L 500.2500, L100.0100 ####[facility] [address] [place], [address] Neutrophils/100 WBC (Bld) 68.3 % Normal 47-70 [facility] Comment on above: Performed By: #### L 500.2500, L100.0100 ####[facility] [address] [place], [address] Nucleated RBC (Bld) [#/Vol] 0 10*3/uL Normal 0-5 [facility] Comment on above: Performed By: #### L 500.2500, L100.0100 ####[facility] [address] [place], [address] Platelet mean volume (Bld) [Entitic vol] 11.8 fL Normal 6.2-12.0 [facility] Comment on above: Performed By: #### L 500.2500, L100.0100 ####[facility] [address] [place], [address] Platelets (Bld) [#/Vol] 175 10*3/uL Normal 150-450 [facility] Comment on above: Performed By: #### L 500.2500, L100.0100 ####[facility] [address] [place], [address] RBC (Bld) [#/Vol] 3.14 10*6/uL Low 4.2-5.4 [facility] Comment on above: Performed By: #### L 500.2500, L100.0100 ####[facility] [address] [place], [address] RDW SD 51.3 fl High 35.1-43.9 [facility] Comment on above: Performed By: #### L 500.2500, L100.0100 ####[facility] [address] [place], [address] WBC (Bld) [#/Vol] 9.8 10*3/uL Normal 4.4-11.0 [facility] Comment on above: Performed By: #### L 500.2500, L100.0100 ####[facility] [address] [place], [address] Absolute Neut Normal 2.0-7.7 [facility] Comment on above: Result Comment: Canc elled via OM: Order cancelled - Patient discharged Performed By: #### L 100.0100, L500.2500 ####[facility] [address] [place], [address] HCT Normal 37-47 [facility] Comment on above: Result Comment: Canc elled via OM: Order cancelled - Patient discharged Performed By: #### L 100.0100, L500.2500 ####[facility] [address] [place], [address] HGB Normal 12.0-15.0 [facility] Comment on above: Result Comment: Canc elled via OM: Order cancelled - Patient discharged Performed By: #### L 100.0100, L500.2500 ####[facility] [address] [place], [address] MCH Normal 27.0-32.0 [facility] Comment on above: Result Comment: Canc elled via OM: Order cancelled - Patient discharged Performed By: #### L 100.0100, L500.2500 ####[facility] [address] [place], [address] MCHC Normal 32-36 [facility] Comment on above: Result Comment: Canc elled via OM: Order cancelled - Patient discharged Performed By: #### L 100.0100, L500.2500 ####[facility] [address] [place], [address] MCV Normal 81-99 [facility] Comment on above: Result Comment: Canc elled via OM: Order cancelled - Patient discharged Performed By: #### L 100.0100, L500.2500 ####[facility] [address] [place], [address] NEUT% Normal 47-70 [facility] Comment on above: Result Comment: Canc elled via OM: Order cancelled - Patient discharged Performed By: #### L 100.0100, L500.2500 ####[facility] [address] [place], [address] PLT Normal 150-450 [facility] Comment on above: Result Comment: Canc elled via OM: Order cancelled - Patient discharged Performed By: #### L 100.0100, L500.2500 ####[facility] [address] [place], [address] RBC Normal 4.2-5.4 [facility] Comment on above: Result Comment: Canc elled via OM: Order cancelled - Patient discharged Performed By: #### L 100.0100, L500.2500 ####[facility] [address] [place], [address] RDW CV Normal 11.6-14.6 [facility] Comment on above: Result Comment: Canc elled via OM: Order cancelled - Patient discharged Performed By: #### L 100.0100, L500.2500 ####[facility] [address] [place], [address] RDW SD Normal 35.1-43.9 [facility] Comment on above: Result Comment: Canc elled via OM: Order cancelled - Patient discharged Performed By: #### L 100.0100, L500.2500 ####[facility] [address] [place], [address] WBC Normal 4.4-11.0 [facility] Comment on above: Result Comment: Canc elled via OM: Order cancelled - Patient discharged Performed By: #### L 100.0100, L500.2500 ####[facility] [address] [place], [address] Absolute lymphocyte countOrd ered By: Broderick Dempsey on 03-11-2025 Lymphocytes Auto (Unsp spec) [#/Vol] 1.37 10*3/uL 0.83-4.51 [facility] Absolute neutrophil countOrd ered By: Broderick Dempsey on 03-11-2025 Neutrophils (Bld) [#/Vol] 5.4 10*3/uL 2.0-7.7 [facility] Anion gap in Serum or Plasma Ordered By: Broderick Dempsey on 03-11-2025 Anion gap [Moles/Vol] 10 mmol/L 5-15 [facility] Automated lymphocyte count a s percentage of total leukocytesOrdered By: Broderick Dempsey on 03-11-2025 Lymphocytes/100 WBC Auto (Unsp spec) 17.0 % Low 19-41 [facility] BUN/creatinine ratioOrdered By: Broderick Dempsey on 03-11-2025 Urea nitrogen/Creatinine [Mass ratio] 37.8 mg/mg High 10-20 [facility] Basic Metabolic Profile (BMP )on 03-11-2025 BUN/CRE 37.8 RATIO High - [facility] Comment on above: Performed By: #### L 500.2500, L100.0100 ####[facility] [address] [place], [address] Calcium [Mass/Vol] 8.4 mg/dL Normal 7.6-11.0 [facility] Comment on above: Performed By: #### L 500.2500, L100.0100 ####[facility] [address] [place], [address] Chloride [Moles/Vol] 111 mmol/L High 98-108 [facility] Comment on above: Performed By: #### L 500.2500, L100.0100 ####[facility] [address] [place], [address] CO2 [Moles/Vol] 19.8 mmol/L Low 21.0-32.0 [facility] Comment on above: Performed By: #### L 500.2500, L100.0100 ####[facility] [address] [place], [address] Creatinine [Mass/Vol] 1.41 mg/dL High 0.70-1.20 [facility] Comment on above: Performed By: #### L 500.2500, L100.0100 ####[facility] [address] [place], [address] ECRCL 36.83 ml/min Low 50-250 [facility] Comment on above: Performed By: #### L 500.2500, L100.0100 ####[facility] [address] [place], [address] GAP 10 Normal 5-15 [facility] Comment on above: Performed By: #### L 500.2500, L100.0100 ####[facility] [address] [place], [address] GFR/1.73 sq M.predicted among non-blacks MDRD (S/P/Bld) [Vol rate/Area] 39 mL/min/{1.73_m2} Low >60 [facility] Comment on above: Result Comment: mL/m in/1.73m2 CKD-EPI Creatinine Equation (2020) Performed By: #### L 500.2500, L100.0100 ####[facility] [address] [place], [address] Glucose [Mass/Vol] 91 mg/dL Normal 70-99 [facility] Comment on above: Performed By: #### L 500.2500, L100.0100 ####[facility] [address] [place], [address] Potassium [Moles/Vol] 4.2 mmol/L Normal 3.3-5.1 [facility] Comment on above: Performed By: #### L 500.2500, L100.0100 ####[facility] [address] [place], [address] Sodium [Moles/Vol] 141 mmol/L Normal 133-145 [facility] Comment on above: Performed By: #### L 500.2500, L100.0100 ####[facility] [address] [place], [address] Urea nitrogen [Mass/Vol] 53 mg/dL High 4-19 [facility] Comment on above: Performed By: #### L 500.2500, L100.0100 ####[facility] [address] [place], [address] Basophil percentageOrdered B y: Broderickarlene Dempsey on 03-11-2025 Basophils/100 WBC (Bld) 0.7 % 0-1 [facility] Bedside Glucoseon 03-11-2025 FINGERSTICK GLU 204 mg/dL High 74-106 [facility] Comment on above: Result Comment: JEREMIAS GEMENT OF PATIENT CARE PER NURSING PROTOCOL Performed By: #### L 501.080 ####[facility] [address] [place], [address] FINGERSTICK GLU 164 mg/dL High 74-106 [facility] Comment on above: Result Comment: JEREMIAS GEMENT OF PATIENT CARE PER NURSING PROTOCOL Performed By: #### L 501.080 ####[facility] [address] [place], [address] FINGERSTICK GLU 282 mg/dL High 74-106 [facility] Comment on above: Result Comment: JEREMIAS GEMENT OF PATIENT CARE PER NURSING PROTOCOL Performed By: #### L 501.080 ####[facility] [address] [place], [address] FINGERSTICK GLU 82 mg/dL Normal 74-106 [facility] Comment on above: Result Comment: JEREMIAS GEMENT OF PATIENT CARE PER NURSING PROTOCOL Performed By: #### L 501.080 ####[facility] [address] [place], [address] FINGERSTICK GLU 142 mg/dL High 74-106 [facility] Comment on above: Result Comment: JEREMIAS GEMENT OF PATIENT CARE PER NURSING PROTOCOL Performed By: #### L 501.080 ####[facility] [address] [place], [address] CBC W/Diff, Automatedon 04-2 Absolute Lymph 1.37 X10 3/uL Normal 0.83-4.51 [facility] Comment on above: Performed By: #### L 500.2500, L100.0100 ####[facility] [address] [place], [address] Absolute Neut 5.4 X10 3/uL Normal 2.0-7.7 [facility] Comment on above: Performed By: #### L 500.2500, L100.0100 ####[facility] [address] [place], [address] Basophils/100 WBC (Bld) 0.7 % Normal 0-1 [facility] Comment on above: Performed By: #### L 500.2500, L100.0100 ####[facility] [address] [place], [address] Eosinophils/100 WBC (Bld) 3.6 % Normal 0-5 [facility] Comment on above: Performed By: #### L 500.2500, L100.0100 ####[facility] [address] [place], [address] Erythrocyte distribution width (RBC) [Ratio] 15.4 % High 11.6-14.6 [facility] Comment on above: Performed By: #### L 500.2500, L100.0100 ####[facility] [address] [place], [address] Hematocrit (Bld) [Volume fraction] 25.3 % Low 37-47 [facility] Comment on above: Performed By: #### L 500.2500, L100.0100 ####[facility] [address] [place], [address] Hemoglobin (Bld) [Mass/Vol] 8.0 g/dL Low 12.0-15.0 [facility] Comment on above: Performed By: #### L 500.2500, L100.0100 ####[facility] [address] [place], [address] IG% 0.900 Normal 0.0-0.9 [facility] Comment on above: Result Comment: IG% - Immature Granulocytes (promyelocytes, myelocytes andmetamyelocytes) > 1% indicates that a LEFT SHIFT is Present. Performed By: #### L 500.2500, L100.0100 ####[facility] [address] [place], [address] Lymphocytes/100 WBC (Bld) 17.0 % Low 19-41 [facility] Comment on above: Performed By: #### L 500.2500, L100.0100 ####[facility] [address] [place], [address] MCH (RBC) [Entitic mass] 28.8 pg Normal 27.0-32.0 [facility] Comment on above: Performed By: #### L 500.2500, L100.0100 ####[facility] [address] [place], [address] MCHC (RBC) [Mass/Vol] 31.6 g/dL Low 32-36 [facility] Comment on above: Performed By: #### L 500.2500, L100.0100 ####[facility] [address] [place], [address] MCV (RBC) [Entitic vol] 91.0 fL Normal 81-99 [facility] Comment on above: Performed By: #### L 500.2500, L100.0100 ####[facility] [address] [place], [address] Monocytes/100 WBC (Bld) 10.8 % High 0-10 [facility] Comment on above: Performed By: #### L 500.2500, L100.0100 ####[facility] [address] [place], [address] Neutrophils/100 WBC (Bld) 67.0 % Normal 47-70 [facility] Comment on above: Performed By: #### L 500.2500, L100.0100 ####[facility] [address] [place], [address] Nucleated RBC (Bld) [#/Vol] 0 10*3/uL Normal 0-5 [facility] Comment on above: Performed By: #### L 500.2500, L100.0100 ####[facility] [address] [place], [address] Platelet mean volume (Bld) [Entitic vol] 11.7 fL Normal 6.2-12.0 [facility] Comment on above: Performed By: #### L 500.2500, L100.0100 ####[facility] [address] [place], [address] Platelets (Bld) [#/Vol] 150 10*3/uL Normal 150-450 [facility] Comment on above: Performed By: #### L 500.2500, L100.0100 ####[facility] [address] [place], [address] RBC (Bld) [#/Vol] 2.78 10*6/uL Low 4.2-5.4 [facility] Comment on above: Performed By: #### L 500.2500, L100.0100 ####[facility] [address] [place], [address] RDW SD 49.5 fl High 35.1-43.9 [facility] Comment on above: Performed By: #### L 500.2500, L100.0100 ####[facility] [address] [place], [address] WBC (Bld) [#/Vol] 8.1 10*3/uL Normal 4.4-11.0 [facility] Comment on above: Performed By: #### L 500.2500, L100.0100 ####[facility] [address] [place], [address] Carbon dioxide, total [Moles /volume] in Central venous bloodOrdered By: Broderick Dempsey on 03-11-2025 CO2 [Moles/Vol] 19.8 mmol/L Low 21.0-32.0 [facility] Chloride assayOrdered By: Solange Dempsey on 03-11-2025 Chloride [Moles/Vol] 111 mmol/L High 98-108 [facility] Consultation - Infectious Dx on 03-11-2025 Consultation - Infectious Dx Normal [facility] Eosinophil percentageOrdered By: Broderick Dempsey on 03-11-2025 Eosinophils/100 WBC (Bld) 3.6 % 0-5 [facility] Erythrocyte distribution wid th ratioOrdered By: Broderick Dempsey on 03-11-2025 Erythrocyte distribution width (RBC) [Ratio] 15.4 % High 11.6-14.6 [facility] Erythrocyte distribution wid th standard deviationOrdered By: Broderick Dempsey on 03-11-2025 Erythrocyte distribution width (RBC) [Ratio] 49.5 fl High 35.1-43.9 [facility] Glomerular filtration rate ( GFR) estimation/1.73 sq m using serum, plasma, or whole bOrdered By: Broderick Dempsey on 03-11-2025 GFR/1.73 sq M.predicted among non-blacks MDRD (S/P/Bld) [Vol rate/Area] 39 mL/min/{1.73_m2} Low >60 [facility] Comment on above: mL/min/1.73m2 CKD-EP I Creatinine Equation (2020) [facility]dered By: Broderick Dempsey on 03-11-2025 Glucose [Mass/Vol] 164 mg/dL High 74-106 [facility] Comment on above: MANAGEMENT OF PATIEN T CARE PER NURSING PROTOCOL Hematocrit Auto (Bld) [Volum e fraction]Ordered By: Broderick Dempsey on 03-11-2025 Hematocrit (Bld) [Volume fraction] 25.3 % Low 37-47 [facility] Hemoglobin measurementOrdere d By: Broderick Dempsey on 03-11-2025 Hemoglobin (Bld) [Mass/Vol] 8.0 g/dL Low 12.0-15.0 [facility] Immature granulocytes/100 WB C Auto (Bld)Ordered By: Broderick Dempsey on 03-11-2025 Immature granulocytes/100 WBC (Bld) 0.900 % 0.0-0.9 [facility] Comment on above: IG% - Immature Granu locytes (promyelocytes, myelocytes and metamyelocytes) > 1% indicates that a LEFT SHIFT is Present. MCV (mean corpuscular volume ) determinationOrdered By: Broderick Dempsey on 03-11-2025 MCV (RBC) [Entitic vol] 91.0 fL 81-99 [facility] Mean corpuscular hemoglobin (MCH) determinationOrdered By: Broderick Dempsey on 03-11-2025 MCH (RBC) [Entitic mass] 28.8 pg 27.0-32.0 [facility] Mean corpuscular hemoglobin concentration (MCHC) determinationOrdered By: Broderick Dempsey on 03-11-2025 MCHC (RBC) [Mass/Vol] 31.6 g/dL Low 32-36 [facility] Mean platelet volume determi nationOrdered By: Broderick Dempsey on 03-11-2025 Platelet mean volume (Bld) [Entitic vol] 11.7 fL 6.2-12.0 [facility] Monocyte percentageOrdered B y: Broderick Dempsey on 03-11-2025 Monocytes/100 WBC (Bld) 10.8 % High 0-10 [facility] Neutrophil percentageOrdered By: Broderick Dempsey on 03-11-2025 Neutrophils/100 WBC (Bld) 67.0 % 47-70 [facility] Nucleated red blood cell per centageOrdered By: Broderick Dempsey on 03-11-2025 Nucleated RBC/100 WBC (Bld) [Ratio] 0 % 0-5 [facility] Platelet countOrdered By: Solange Dempsey on 03-11-2025 Platelets (Bld) [#/Vol] 150 10*3/uL 150-450 [facility] Potassium measurement (mass/ volume)Ordered By: Broderick Dempsey on 03-11-2025 Potassium (Unsp spec) [Mass/Vol] 4.2 mmol/L 3.3-5.1 [facility] RBC Auto (Bld) [#/Vol]Ordere d By: Broderick Dempsey on 03-11-2025 RBC (Bld) [#/Vol] 2.78 10*6/uL Low 4.2-5.4 [facility] Serum creatinine measurement (mass/volume)Ordered By: Broderick Dempsey on 03-11-2025 Creatinine [Mass/Vol] 1.41 mg/dL High 0.70-1.20 [facility] Serum glucose measurement (m ass/volume)Ordered By: Broderick Dempsey on 03-11-2025 Glucose [Mass/Vol] 91 mg/dL 70-99 [facility] Serum or plasma calcium natalia urement (mass/volume)Ordered By: Broderick Dempsey on 03-11-2025 Calcium [Mass/Vol] 8.4 mg/dL 7.6-11.0 [facility] Serum or plasma urea nitroge n measurement (mass/volume)Ordered By: Broderick Dempsey on 03-11-2025 Urea nitrogen [Mass/Vol] 53 mg/dL High 4-19 [facility] Sodium levelOrdered By: Tevin Dempsey on 03-11-2025 Sodium [Moles/Vol] 141 mmol/L 133-145 [facility] White blood cell (WBC) count Ordered By: Broderick Dempsey on 03-11-2025 WBC (Bld) [#/Vol] 8.1 10*3/uL 4.4-11.0 [facility] Basic Metabolic Profile (BMP )on 03-10-2025 BUN/CRE 44.3 RATIO High 10-20 [facility] Comment on above: Performed By: #### L 100.0100, L500.2500 ####[facility] [address] [place], [address] Calcium [Mass/Vol] 8.4 mg/dL Normal 7.6-11.0 [facility] Comment on above: Performed By: #### L 100.0100, L500.2500 ####[facility] [address] [place], [address] Chloride [Moles/Vol] 113 mmol/L High 98-108 [facility] Comment on above: Performed By: #### L 100.0100, L500.2500 ####[facility] [address] [place], [address] CO2 [Moles/Vol] 19.1 mmol/L Low 21.0-32.0 [facility] Comment on above: Performed By: #### L 100.0100, L500.2500 ####[facility] [address] [place], [address] Creatinine [Mass/Vol] 1.47 mg/dL High 0.70-1.20 [facility] Comment on above: Performed By: #### L 100.0100, L500.2500 ####[facility] [address] [place], [address] ECRCL 35.18 ml/min Low 50-250 [facility] Comment on above: Performed By: #### L 100.0100, L500.2500 ####[facility] [address] [place], [address] GAP 10 Normal 5-15 [facility] Comment on above: Performed By: #### L 100.0100, L500.2500 ####[facility] [address] [place], [address] GFR/1.73 sq M.predicted among non-blacks MDRD (S/P/Bld) [Vol rate/Area] 37 mL/min/{1.73_m2} Low >60 [facility] Comment on above: Result Comment: mL/m in/1.73m2 CKD-EPI Creatinine Equation (2020) Performed By: #### L 100.0100, L500.2500 ####[facility] [address] [place], [address] Glucose [Mass/Vol] 81 mg/dL Normal 70-99 [facility] Comment on above: Performed By: #### L 100.0100, L500.2500 ####[facility] [address] [place], [address] Potassium [Moles/Vol] 4.2 mmol/L Normal 3.3-5.1 [facility] Comment on above: Performed By: #### L 100.0100, L500.2500 ####[facility] [address] [place], [address] Sodium [Moles/Vol] 143 mmol/L Normal 133-145 [facility] Comment on above: Performed By: #### L 100.0100, L500.2500 ####[facility] [address] [place], [address] Urea nitrogen [Mass/Vol] 65 mg/dL High 4-19 [facility] Comment on above: Performed By: #### L 100.0100, L500.2500 ####[facility] [address] [place], [address] Bedside Glucoseon 03-10-2025 FINGERSTICK GLU 186 mg/dL High 74-106 [facility] Comment on above: Result Comment: JEREMIAS GEMENT OF PATIENT CARE PER NURSING PROTOCOL Performed By: #### L 501.080 ####[facility] [address] [place], [address] FINGERSTICK GLU 308 mg/dL High 74-106 [facility] Comment on above: Result Comment: JEREMIAS GEMENT OF PATIENT CARE PER NURSING PROTOCOL Performed By: #### L 501.080 ####[facility] [address] [place], [address] FINGERSTICK GLU 84 mg/dL Normal 74-106 [facility] Comment on above: Result Comment: JEREMIAS GEMENT OF PATIENT CARE PER NURSING PROTOCOL Performed By: #### L 501.080 ####[facility] [address] [place], [address] CBC W/Diff, Automatedon 02-18 Absolute Lymph 1.76 X10 3/uL Normal 0.83-4.51 [facility] Comment on above: Performed By: #### L 100.0100, L500.2500 ####[facility] [address] [place], [address] Absolute Neut 4.7 X10 3/uL Normal 2.0-7.7 [facility] Comment on above: Performed By: #### L 100.0100, L500.2500 ####[facility] [address] [place], [address] Basophils/100 WBC (Bld) 0.6 % Normal 0-1 [facility] Comment on above: Performed By: #### L 100.0100, L500.2500 ####[facility] [address] [place], [address] Eosinophils/100 WBC (Bld) 3.0 % Normal 0-5 [facility] Comment on above: Performed By: #### L 100.0100, L500.2500 ####[facility] [address] [place], [address] Erythrocyte distribution width (RBC) [Ratio] 15.1 % High 11.6-14.6 [facility] Comment on above: Performed By: #### L 100.0100, L500.2500 ####[facility] [address] [place], [address] Hematocrit (Bld) [Volume fraction] 25.3 % Low 37-47 [facility] Comment on above: Performed By: #### L 100.0100, L500.2500 ####[facility] [address] [place], [address] Hemoglobin (Bld) [Mass/Vol] 8.1 g/dL Low 12.0-15.0 [facility] Comment on above: Performed By: #### L 100.0100, L500.2500 ####[facility] [address] [place], [address] IG% 1.300 High 0.0-0.9 [facility] Comment on above: Result Comment: IG% - Immature Granulocytes (promyelocytes, myelocytes andmetamyelocytes) > 1% indicates that a LEFT SHIFT is Present. Performed By: #### L 100.0100, L500.2500 ####[facility] [address] [place], [address] Lymphocytes/100 WBC (Bld) 22.3 % Normal 19-41 [facility] Comment on above: Performed By: #### L 100.0100, L500.2500 ####[facility] [address] [place], [address] MCH (RBC) [Entitic mass] 28.7 pg Normal 27.0-32.0 [facility] Comment on above: Performed By: #### L 100.0100, L500.2500 ####[facility] [address] [place], [address] MCHC (RBC) [Mass/Vol] 32.0 g/dL Normal 32-36 [facility] Comment on above: Performed By: #### L 100.0100, L500.2500 ####[facility] [address] [place], [address] MCV (RBC) [Entitic vol] 89.7 fL Normal 81-99 [facility] Comment on above: Performed By: #### L 100.0100, L500.2500 ####[facility] [address] [place], [address] Monocytes/100 WBC (Bld) 12.9 % High 0-10 [facility] Comment on above: Performed By: #### L 100.0100, L500.2500 ####[facility] [address] [place], [address] Neutrophils/100 WBC (Bld) 59.9 % Normal 47-70 [facility] Comment on above: Performed By: #### L 100.0100, L500.2500 ####[facility] [address] [place], [address] Nucleated RBC (Bld) [#/Vol] 0 10*3/uL Normal 0-5 [facility] Comment on above: Performed By: #### L 100.0100, L500.2500 ####[facility] [address] [place], [address] Platelet mean volume (Bld) [Entitic vol] 11.4 fL Normal 6.2-12.0 [facility] Comment on above: Performed By: #### L 100.0100, L500.2500 ####[facility] [address] [place], [address] Platelets (Bld) [#/Vol] 156 10*3/uL Normal 150-450 [facility] Comment on above: Performed By: #### L 100.0100, L500.2500 ####[facility] [address] [place], [address] RBC (Bld) [#/Vol] 2.82 10*6/uL Low 4.2-5.4 [facility] Comment on above: Performed By: #### L 100.0100, L500.2500 ####[facility] [address] [place], [address] RDW SD 46.9 fl High 35.1-43.9 [facility] Comment on above: Performed By: #### L 100.0100, L500.2500 ####[facility] [address] [place], [address] WBC (Bld) [#/Vol] 7.9 10*3/uL Normal 4.4-11.0 [facility] Comment on above: Performed By: #### L 100.0100, L500.2500 ####[facility] [address] [place], [address] Protein+Creatinine Ratio,Uri neon 03-10-2025 PROT:CRE RATIO 226 mg/g CRE High 0-200 [facility] Comment on above: Performed By: #### L 501.0900 ####[facility] [address] [place], [address] Protein (U) [Mass/Vol] 8.5 mg/dL Normal 0.0-12.0 [facility] Comment on above: Performed By: #### L 501.0900 ####[facility] [address] [place], [address] UR CREAT 37.70 mg/dL Normal 28.00-217.0 0 [facility] Comment on above: Performed By: #### L 501.0900 ####[facility] [address] [place], [address] Basic Metabolic Profile (BMP )on 03-09-2025 BUN/CRE 51.7 RATIO High 10-20 [facility] Comment on above: Performed By: #### L 501.3620, L500.2500, L100.0100 ####[facility] [address] [place], [address] Calcium [Mass/Vol] 8.1 mg/dL Normal 7.6-11.0 [facility] Comment on above: Performed By: #### L 501.3620, L500.2500, L100.0100 ####[facility] [address] [place], [address] Chloride [Moles/Vol] 112 mmol/L High 98-108 [facility] Comment on above: Performed By: #### L 501.3620, L500.2500, L100.0100 ####[facility] [address] [place], [address] CO2 [Moles/Vol] 19.1 mmol/L Low 21.0-32.0 [facility] Comment on above: Performed By: #### L 501.3620, L500.2500, L100.0100 ####[facility] [address] [place], [address] Creatinine [Mass/Vol] 1.63 mg/dL High 0.70-1.20 [facility] Comment on above: Performed By: #### L 501.3620, L500.2500, L100.0100 ####[facility] [address] [place], [address] ECRCL 31.75 ml/min Low 50-250 [facility] Comment on above: Performed By: #### L 501.3620, L500.2500, L100.0100 ####[facility] [address] [place], [address] GAP 10 Normal 5-15 [facility] Comment on above: Performed By: #### L 501.3620, L500.2500, L100.0100 ####[facility] [address] [place], [address] GFR/1.73 sq M.predicted among non-blacks MDRD (S/P/Bld) [Vol rate/Area] 33 mL/min/{1.73_m2} Low >60 [facility] Comment on above: Result Comment: mL/m in/1.73m2 CKD-EPI Creatinine Equation (2020) Performed By: #### L 501.3620, L500.2500, L100.0100 ####[facility] [address] [place], [address] Glucose [Mass/Vol] 120 mg/dL High 70-99 [facility] Comment on above: Performed By: #### L 501.3620, L500.2500, L100.0100 ####[facility] [address] [place], [address] Potassium [Moles/Vol] 3.8 mmol/L Normal 3.3-5.1 [facility] Comment on above: Performed By: #### L 501.3620, L500.2500, L100.0100 ####[facility] [address] [place], [address] Sodium [Moles/Vol] 141 mmol/L Normal 133-145 [facility] Comment on above: Performed By: #### L 501.3620, L500.2500, L100.0100 ####[facility] [address] [place], [address] Urea nitrogen [Mass/Vol] 84 mg/dL High 4-19 [facility] Comment on above: Performed By: #### L 501.3620, L500.2500, L100.0100 ####[facility] [address] [place], [address] Bedside Glucoseon - FINGERSTICK GLU 220 mg/dL High 74-106 [facility] Comment on above: Result Comment: JEREMIAS GEMENT OF PATIENT CARE PER NURSING PROTOCOL Performed By: #### L 501.080 ####[facility] [address] [place], [address] FINGERSTICK GLU 193 mg/dL High 74-106 [facility] Comment on above: Result Comment: JEREMIAS GEMENT OF PATIENT CARE PER NURSING PROTOCOL Performed By: #### L 501.080 ####[facility] [address] [place], [address] FINGERSTICK GLU 164 mg/dL High 74-106 [facility] Comment on above: Result Comment: JEREMIAS GEMENT OF PATIENT CARE PER NURSING PROTOCOL Performed By: #### L 501.080 ####[facility] [address] [place], [address] CBC W/Diff, Automatedon 04-2 Absolute Lymph 1.38 X10 3/uL Normal 0.83-4.51 [facility] Comment on above: Performed By: #### L 501.3620, L500.2500, L100.0100 ####[facility] [address] [place], [address] Absolute Neut 6.3 X10 3/uL Normal 2.0-7.7 [facility] Comment on above: Performed By: #### L 501.3620, L500.2500, L100.0100 ####[facility] [address] [place], [address] Basophils/100 WBC (Bld) 0.3 % Normal 0-1 [facility] Comment on above: Performed By: #### L 501.3620, L500.2500, L100.0100 ####[facility] [address] [place], [address] Eosinophils/100 WBC (Bld) 2.3 % Normal 0-5 [facility] Comment on above: Performed By: #### L 501.3620, L500.2500, L100.0100 ####[facility] [address] [place], [address] Erythrocyte distribution width (RBC) [Ratio] 14.7 % High 11.6-14.6 [facility] Comment on above: Performed By: #### L 501.3620, L500.2500, L100.0100 ####[facility] [address] [place], [address] Hematocrit (Bld) [Volume fraction] 23.5 % Low 37-47 [facility] Comment on above: Performed By: #### L 501.3620, L500.2500, L100.0100 ####[facility] [address] [place], [address] Hemoglobin (Bld) [Mass/Vol] 7.6 g/dL Low 12.0-15.0 [facility] Comment on above: Performed By: #### L 501.3620, L500.2500, L100.0100 ####[facility] [address] [place], [address] IG% 1.000 High 0.0-0.9 [facility] Comment on above: Result Comment: IG% - Immature Granulocytes (promyelocytes, myelocytes andmetamyelocytes) > 1% indicates that a LEFT SHIFT is Present. Performed By: #### L 501.3620, L500.2500, L100.0100 ####[facility] [address] [place], [address] Lymphocytes/100 WBC (Bld) 15.8 % Low 19-41 [facility] Comment on above: Performed By: #### L 501.3620, L500.2500, L100.0100 ####[facility] [address] [place], [address] MCH (RBC) [Entitic mass] 29.0 pg Normal 27.0-32.0 [facility] Comment on above: Performed By: #### L 501.3620, L500.2500, L100.0100 ####[facility] [address] [place], [address] MCHC (RBC) [Mass/Vol] 32.3 g/dL Normal 32-36 [facility] Comment on above: Performed By: #### L 501.3620, L500.2500, L100.0100 ####[facility] [address] [place], [address] MCV (RBC) [Entitic vol] 89.7 fL Normal 81-99 [facility] Comment on above: Performed By: #### L 501.3620, L500.2500, L100.0100 ####[facility] [address] [place], [address] Monocytes/100 WBC (Bld) 9.0 % Normal 0-10 [facility] Comment on above: Performed By: #### L 501.3620, L500.2500, L100.0100 ####[facility] [address] [place], [address] Neutrophils/100 WBC (Bld) 71.6 % High 47-70 [facility] Comment on above: Performed By: #### L 501.3620, L500.2500, L100.0100 ####[facility] [address] [place], [address] Nucleated RBC (Bld) [#/Vol] 0 10*3/uL Normal 0-5 [facility] Comment on above: Performed By: #### L 501.3620, L500.2500, L100.0100 ####[facility] [address] [place], [address] Platelet mean volume (Bld) [Entitic vol] 11.7 fL Normal 6.2-12.0 [facility] Comment on above: Performed By: #### L 501.3620, L500.2500, L100.0100 ####[facility] [address] [place], [address] Platelets (Bld) [#/Vol] 164 10*3/uL Normal 150-450 [facility] Comment on above: Performed By: #### L 501.3620, L500.2500, L100.0100 ####[facility] [address] [place], [address] RBC (Bld) [#/Vol] 2.62 10*6/uL Low 4.2-5.4 [facility] Comment on above: Performed By: #### L 501.3620, L500.2500, L100.0100 ####[facility] [address] [place], [address] RDW SD 47.1 fl High 35.1-43.9 [facility] Comment on above: Performed By: #### L 501.3620, L500.2500, L100.0100 ####[facility] [address] [place], [address] WBC (Bld) [#/Vol] 8.8 10*3/uL Normal 4.4-11.0 [facility] Comment on above: Performed By: #### L 501.3620, L500.2500, L100.0100 ####[facility] [address] [place], [address] CPK Total, Creatine Kinaseon 03-09-2025 CPK TOTAL 308 U/L High [facility] Comment on above: Performed By: #### L 501.3620, L500.2500, L100.0100 ####[facility] [address] [place], [address] Consultation - Nephrologyon 03-09-2025 Consultation - Nephrology Normal [facility] Consultation - Surgicalon Consultation - Surgical Normal [facility] Folate [Mass/volume] in Seru m or PlasmaOrdered By: Maddie Merchant on 03-09-2025 Folate [Mass/Vol] 15.10 ng/mL 4.60-34.80 [facility] Folates,Serum (Folic Acid)on 03-09-2025 FOLATES,SERUM 15.10 ng/mL Normal 4.60-34.80 [facility] Comment on above: Performed By: #### L 506.0200 ####[facility] [address] [place], [address] Kidney and Bladderon 025 Kidney and Bladder Normal [facility] Random urine creatinine natalia urement (mass/volume)Ordered By: Zarina Adler on 03-09-2025 Creatinine Unsp time (U) [Mass/Vol] 37.70 mg/dL 28.00-217.0 0 [facility] Serum or plasma creatine kin ase activityOrdered By: Broderick Dempsey on 03-09-2025 CK [Catalytic activity/Vol] 308 U/L High - [facility] Urine Cultureon 03-09-2025 URC Normal [facility] Comment on above: Performed By: #### M 100.2200 ####[facility] [address] [place], [address] Urine protein measurement (m ass/volume)Ordered By: Zarina Adler on 03-09-2025 Protein (U) [Mass/Vol] 8.5 mg/dL 0.0-12.0 [facility] Urine protein/creatinine mas s ratioOrdered By: Zarina Adler on 03-09-2025 Protein/Creatinine (U) [Mass ratio] 226 mg/g CRE High 0-200 [facility] Bedside Glucoseon 03-08-2025 FINGERSTICK GLU 249 mg/dL High 74-106 [facility] Comment on above: Result Comment: JEREMIAS GEMENT OF PATIENT CARE PER NURSING PROTOCOL Performed By: #### L 501.080 ####[facility] [address] [place], [address] FINGERSTICK GLU 200 mg/dL High [address] [place] [address] Comment on above: Result Comment: JEREMIAS GEMENT OF PATIENT CARE PER NURSING PROTOCOL Performed By: #### L 501.080 ####[facility] [address] [place], [address] FINGERSTICK GLU 165 mg/dL High [address] [place] [address] Comment on above: Result Comment: JEREMIAS GEMENT OF PATIENT CARE PER NURSING PROTOCOL Performed By: #### L 501.080 ####[facility] [address] [place], [address] FINGERSTICK GLU 159 mg/dL High [address] [place] [address] Comment on above: Result Comment: JEREMIAS GEMENT OF PATIENT CARE PER NURSING PROTOCOL Performed By: #### L 501.080 ####[facility] [address] [place], [address] FINGERSTICK GLU 283 mg/dL High [address] [place] [address] Comment on above: Result Comment: JEREMIAS GEMENT OF PATIENT CARE PER NURSING PROTOCOL Performed By: #### L 501.080 ####[facility] [address] [place], [address] Bilirubin, totalOrdered By: Maddie Merchant on 03-08-2025 Bilirubin [Mass/Vol] 0.25 mg/dL 0.00-1.30 [facility] CBC W/Diff, Automatedon 02-18 Absolute Lymph 1.08 X10 3/uL Normal 0.83-4.51 [facility] Comment on above: Performed By: #### L 501.3620, L100.0100, L500.4050, L501.9985, L503.0106, L503.6030, L503.6550 ####[facility] [address] [place], [address] Absolute Neut 7.1 X10 3/uL Normal 2.0-7.7 [facility] Comment on above: Performed By: #### L 501.3620, L100.0100, L500.4050, L501.9985, L503.0106, L503.6030, L503.6550 ####[facility] [address] [place], [address] Basophils/100 WBC (Bld) 0.4 % Normal 0-1 [facility] Comment on above: Performed By: #### L 501.3620, L100.0100, L500.4050, L501.9985, L503.0106, L503.6030, L503.6550 ####[facility] [address] [place], [address] Eosinophils/100 WBC (Bld) 1.6 % Normal 0-5 [facility] Comment on above: Performed By: #### L 501.3620, L100.0100, L500.4050, L501.9985, L503.0106, L503.6030, L503.6550 ####[facility] [address] [place], [address] Erythrocyte distribution width (RBC) [Ratio] 14.5 % Normal 11.6-14.6 [facility] Comment on above: Performed By: #### L 501.3620, L100.0100, L500.4050, L501.9985, L503.0106, L503.6030, L503.6550 ####[facility] [address] [place], [address] Hematocrit (Bld) [Volume fraction] 25.1 % Low 37-47 [facility] Comment on above: Performed By: #### L 501.3620, L100.0100, L500.4050, L501.9985, L503.0106, L503.6030, L503.6550 ####[facility] [address] [facility] [place], [address] Hemoglobin (Bld) [Mass/Vol] 7.9 g/dL Low 12.0-15.0 [facility] Comment on above: Performed By: #### L 501.3620, L100.0100, L500.4050, L501.9985, L503.0106, L503.6030, L503.6550 ####[facility] [address] [facility] [place], [address] IG% 0.700 Normal 0.0-0.9 [facility] Comment on above: Result Comment: IG% - Immature Granulocytes (promyelocytes, myelocytes andmetamyelocytes) > 1% indicates that a LEFT SHIFT is Present. Performed By: #### L 501.3620, L100.0100, L500.4050, L501.9985, L503.0106, L503.6030, L503.6550 ####[facility] [address] [place], [address] Lymphocytes/100 WBC (Bld) 11.7 % Low 19-41 [facility] Comment on above: Performed By: #### L 501.3620, L100.0100, L500.4050, L501.9985, L503.0106, L503.6030, L503.6550 ####[facility] [address] [place], [address] MCH (RBC) [Entitic mass] 28.2 pg Normal 27.0-32.0 [facility] Comment on above: Performed By: #### L 501.3620, L100.0100, L500.4050, L501.9985, L503.0106, L503.6030, L503.6550 ####[facility] [address] [place], [address] MCHC (RBC) [Mass/Vol] 31.5 g/dL Low 32-36 [facility] Comment on above: Performed By: #### L 501.3620, L100.0100, L500.4050, L501.9985, L503.0106, L503.6030, L503.6550 ####[facility] [address] [place], [address] MCV (RBC) [Entitic vol] 89.6 fL Normal 81-99 [facility] Comment on above: Performed By: #### L 501.3620, L100.0100, L500.4050, L501.9985, L503.0106, L503.6030, L503.6550 ####[facility] [address] [place], [address] Monocytes/100 WBC (Bld) 9.1 % Normal 0-10 [facility] Comment on above: Performed By: #### L 501.3620, L100.0100, L500.4050, L501.9985, L503.0106, L503.6030, L503.6550 ####[facility] [address] [place], [address] Neutrophils/100 WBC (Bld) 76.5 % High 47-70 [facility] Comment on above: Performed By: #### L 501.3620, L100.0100, L500.4050, L501.9985, L503.0106, L503.6030, L503.6550 ####[facility] [address] [place], [address] Nucleated RBC (Bld) [#/Vol] 0 10*3/uL Normal 0-5 [facility] Comment on above: Performed By: #### L 501.3620, L100.0100, L500.4050, L501.9985, L503.0106, L503.6030, L503.6550 ####[facility] [address] [place], [address] Platelet mean volume (Bld) [Entitic vol] 11.6 fL Normal 6.2-12.0 [facility] Comment on above: Performed By: #### L 501.3620, L100.0100, L500.4050, L501.9985, L503.0106, L503.6030, L503.6550 ####[facility] [address] [place], [address] Platelets (Bld) [#/Vol] 185 10*3/uL Normal 150-450 [facility] Comment on above: Performed By: #### L 501.3620, L100.0100, L500.4050, L501.9985, L503.0106, L503.6030, L503.6550 ####[facility] [address] [place], [address] RBC (Bld) [#/Vol] 2.80 10*6/uL Low 4.2-5.4 [facility] Comment on above: Performed By: #### L 501.3620, L100.0100, L500.4050, L501.9985, L503.0106, L503.6030, L503.6550 ####[facility] [address] [place], [address] RDW SD 46.7 fl High 35.1-43.9 [facility] Comment on above: Performed By: #### L 501.3620, L100.0100, L500.4050, L501.9985, L503.0106, L503.6030, L503.6550 ####[facility] [address] [place], [address] WBC (Bld) [#/Vol] 9.2 10*3/uL Normal 4.4-11.0 [facility] Comment on above: Performed By: #### L 501.3620, L100.0100, L500.4050, L501.9985, L503.0106, L503.6030, L503.6550 ####[facility] [address] [place], [address] CPK Total, Creatine Kinaseon 03-08-2025 CPK TOTAL 736 U/L High 24-195 [facility] Comment on above: Performed By: #### L 501.3620, L100.0100, L500.4050, L501.9985, L503.0106, L503.6030, L503.6550 ####[facility] [address] [place], [address] Comprehensive Metabolic Prof ilon 03-08-2025 Albumin [Mass/Vol] 2.6 g/dL Low 3.4-4.8 [facility] Comment on above: Performed By: #### L 501.3620, L100.0100, L500.4050, L501.9985, L503.0106, L503.6030, L503.6550 ####[facility] [address] [place], [address] Albumin/Globulin [Mass ratio] 1.1 {ratio} Normal 0.9-2.4 [facility] Comment on above: Performed By: #### L 501.3620, L100.0100, L500.4050, L501.9985, L503.0106, L503.6030, L503.6550 ####[facility] [address] [place], [address] ALK PHOS 58 U/L Normal 35-104 [facility] Comment on above: Performed By: #### L 501.3620, L100.0100, L500.4050, L501.9985, L503.0106, L503.6030, L503.6550 ####[facility] [address] [place], [address] ALT [Catalytic activity/Vol] 48 U/L High <=34 [facility] Comment on above: Performed By: #### L 501.3620, L100.0100, L500.4050, L501.9985, L503.0106, L503.6030, L503.6550 ####[facility] [address] [place], [address] AST [Catalytic activity/Vol] 45 U/L High <=31 [facility] Comment on above: Performed By: #### L 501.3620, L100.0100, L500.4050, L501.9985, L503.0106, L503.6030, L503.6550 ####[facility] [address] [place], [address] Bilirubin [Mass/Vol] 0.25 mg/dL Normal 0.00-1.30 [facility] Comment on above: Performed By: #### L 501.3620, L100.0100, L500.4050, L501.9985, L503.0106, L503.6030, L503.6550 ####[facility] [address] [place], [address] BUN/CRE 52.5 RATIO High 10-20 [facility] Comment on above: Performed By: #### L 501.3620, L100.0100, L500.4050, L501.9985, L503.0106, L503.6030, L503.6550 ####[facility] [address] [place], [address] Calcium [Mass/Vol] 8.1 mg/dL Normal 7.6-11.0 [facility] Comment on above: Performed By: #### L 501.3620, L100.0100, L500.4050, L501.9985, L503.0106, L503.6030, L503.6550 ####[facility] [address] [place], [address] Chloride [Moles/Vol] 111 mmol/L High 98-108 [facility] Comment on above: Performed By: #### L 501.3620, L100.0100, L500.4050, L501.9985, L503.0106, L503.6030, L503.6550 ####[facility] [address] [place], [address] CO2 [Moles/Vol] 17.3 mmol/L Low 21.0-32.0 [facility] Comment on above: Performed By: #### L 501.3620, L100.0100, L500.4050, L501.9985, L503.0106, L503.6030, L503.6550 ####[facility] [address] [place], [address] Creatinine [Mass/Vol] 2.02 mg/dL High 0.70-1.20 [facility] Comment on above: Performed By: #### L 501.3620, L100.0100, L500.4050, L501.9985, L503.0106, L503.6030, L503.6550 ####[facility] [address] [place], [address] ECRCL 25.62 ml/min Low 50-250 [facility] Comment on above: Performed By: #### L 501.3620, L100.0100, L500.4050, L501.9985, L503.0106, L503.6030, L503.6550 ####[facility] [address] [place], [address] GAP 14 Normal 5-15 [facility] Comment on above: Performed By: #### L 501.3620, L100.0100, L500.4050, L501.9985, L503.0106, L503.6030, L503.6550 ####[facility] [address] [place], [address] GFR/1.73 sq M.predicted among non-blacks MDRD (S/P/Bld) [Vol rate/Area] 26 mL/min/{1.73_m2} Low >60 [facility] Comment on above: Result Comment: mL/m in/1.73m2 CKD-EPI Creatinine Equation (2020) Performed By: #### L 501.3620, L100.0100, L500.4050, L501.9985, L503.0106, L503.6030, L503.6550 ####[facility] [address] [place], [place], [address] Globulin (S) [Mass/Vol] 2.4 g/dL Normal 2.2-4.2 [facility] Comment on above: Performed By: #### L 501.3620, L100.0100, L500.4050, L501.9985, L503.0106, L503.6030, L503.6550 ####[facility] [address] [place], [address] Glucose [Mass/Vol] 172 mg/dL High 70-99 [facility] Comment on above: Performed By: #### L 501.3620, L100.0100, L500.4050, L501.9985, L503.0106, L503.6030, L503.6550 ####[facility] [address] [place], [address] Potassium [Moles/Vol] 3.8 mmol/L Normal 3.3-5.1 [facility] Comment on above: Performed By: #### L 501.3620, L100.0100, L500.4050, L501.9985, L503.0106, L503.6030, L503.6550 ####[facility] [address] [place], [address] Sodium [Moles/Vol] 143 mmol/L Normal 133-145 [facility] Comment on above: Performed By: #### L 501.3620, L100.0100, L500.4050, L501.9985, L503.0106, L503.6030, L503.6550 ####[facility] [address] [place], [address] T PROT 5.1 g/dL Low 5.9-8.4 [facility] Comment on above: Performed By: #### L 501.3620, L100.0100, L500.4050, L501.9985, L503.0106, L503.6030, L503.6550 ####[facility] [address] [place], [address] Urea nitrogen [Mass/Vol] 106 mg/dL Invalid Interpretation Code 4-19 [facility] Comment on above: Result Comment: Crit ical Result(s) Called at: by:??Results read back bysawy.Critical Result(s) Called to Zoraida PENNINGTON (MS3): Steven:??Results read back by same. Performed By: #### L 501.3620, L100.0100, L500.4050, L501.9985, L503.0106, L503.6030, L503.6550 ####[facility] [address] [place], [address] Ferritinon 03-08-2025 Ferritin [Mass/Vol] 270 ng/mL Normal 22-378 [facility] Comment on above: Performed By: #### L 501.3620, L100.0100, L500.4050, L501.9985, L503.0106, L503.6030, L503.6550 ####[facility] [address] [place], [address] HH, Hemoglobin AND Hematocri ton 03-08-2025 Hematocrit (Bld) [Volume fraction] 24.0 % Low 37-47 [facility] Comment on above: Performed By: #### L 100.0600 ####[facility] [address] [place], [address] Hemoglobin (Bld) [Mass/Vol] 7.7 g/dL Low 12.0-15.0 [facility] Comment on above: Performed By: #### L 100.0600 ####[facility] [address] [place], [address] Hemoglobin A1con 03-08-2025 HbA1c (Bld) [Mass fraction] 6.5 % High <=5.6 [facility] Comment on above: Result Comment: Norm al < 5.7 % Prediabetic 5.7 - 6.4 % Diabetic >or= 6.5 % Please note range changes. Performed By: #### L 501.3620, L100.0100, L500.4050, L501.9985, L503.0106, L503.6030, L503.6550 ####[facility] [address] [place], [address] Hemoglobin A1c percentageOrd ered By: Maddie Merchant on 03-08-2025 HbA1c (Bld) [Mass fraction] 6.5 % High <5.7 [facility] Comment on above: Normal < 5.7 % Predi abetic 5.7 - 6.4 % Diabetic >or= 6.5 % Please note range changes. Iron measurement (mass/mass) Ordered By: Maddie Merchant on 03-08-2025 Iron (Unsp spec) [Mass/Mass] 18 ug/dL Low 50-170 [facility] Iron+Iron Binding Capacityon 03-08-2025 TIBC TNP Normal 250-450 [facility] Comment on above: Performed By: #### L 501.3620, L100.0100, L500.4050, L501.9985, L503.0106, L503.6030, L503.6550 ####[facility] [address] [place], [address] Laboratory - Chemistry and C hemistry - challengeOrdered By: Maddie Merchant on 03-08-2025 AST [Catalytic activity/Vol] 45 U/L High <32 [facility] No Panel InformationOrdered By: Maddie Merchant on 03-08-2025 Unsaturated Iron Binding Capacity 150 ug/dL Low 228-428 [facility] 45 U/L High <32 [facility] 150 ug/dL Low 228-428 [facility] Serum globulin measurementOr dered By: Maddie Merchant on 03-08-2025 Globulin (S) [Mass/Vol] 2.4 g/dL 2.2-4.2 [facility] Serum or plasma alanine anaya otransferase (ALT) measurementOrdered By: Maddie Merchant 03-08-2025 ALT [Catalytic activity/Vol] 48 U/L High <35 [facility] Serum or plasma albumin natalia urement (mass/volume)Ordered By: Maddie Merchant on 03-08-2025 Albumin [Mass/Vol] 2.6 g/dL Low 3.4-4.8 [facility] Serum or plasma albumin/glob ulin mass ratioOrdered By: [facility] Shonda 03-08-2025 Albumin/Globulin [Mass ratio] 1.1 {ratio} 0.9-2.4 [facility] Serum or plasma alkaline chelsie sphatase measurementOrdered By: Maddie Merchant 03-08-2025 ALP [Catalytic activity/Vol] 58 U/L 35-104 [facility] Serum or plasma ferritin areli surement (mass/volume)Ordered By: Maddie Merchant on 03-08-2025 Ferritin [Mass/Vol] 270 ng/mL 22-378 [facility] Serum or plasma iron saturat ion measurement (mass fraction)Ordered By: Maddie Merchant on 03-08-2025 Iron saturation [Mass fraction] 11.0 % Low 13-59 [facility] Total proteinOrdered By: Stacia Merchant on 03-08-2025 Protein [Mass/Vol] 5.1 g/dL Low 5.9-8.4 [facility] Vitamin B12on 03-08-2025 Cobalamin (Vitamin B12) [Mass/Vol] 3538 pg/mL High 180-914 [facility] Comment on above: Performed By: #### L 501.3620, L100.0100, L500.4050, L501.9985, L503.0106, L503.6030, L503.6550 ####[facility] [address] [place], [place], [id number] Vitamin B12 ser/plasOrdered By: Maddie Merchant on 03-08-2025 Cobalamin (Vitamin B12) [Mass/Vol] 3538 pg/mL High 180-914 [facility] 12 Lead EKGon 03-07-2025 12 Lead EKG Normal [facility] Absolute neutrophil countOrd ered By: Megan Anderson on 03-07-2025 Neutrophils (Bld) [#/Vol] 12.9 10*3/uL High 2.0-7.7 [facility] Anion gap in Serum or Plasma Ordered By: Megan Anderson on 03-07-2025 Anion gap [Moles/Vol] 18 mmol/L High 5-15 [facility] BUN/creatinine ratioOrdered By: Megan Anderson on 03-07-2025 Urea nitrogen/Creatinine [Mass ratio] 51.2 mg/mg High 09-07 [facility] Basic Metabolic Profile (BMP )on 03-07-2025 BUN/CRE 51.2 RATIO High 09-07 [facility] Comment on above: Performed By: #### L 500.2500, L100.0100, L501.3620 ####[facility] [address] [place], [place], [id number] Calcium [Mass/Vol] 8.8 mg/dL Normal 7.6-11.0 [facility] Comment on above: Performed By: #### L 500.2500, L100.0100, L501.3620 ####[facility] [address] [place], [address] Chloride [Moles/Vol] 105 mmol/L Normal 98-108 [facility] Comment on above: Performed By: #### L 500.2500, L100.0100, L501.3620 ####[facility] [address] [place], [address] CO2 [Moles/Vol] 16.8 mmol/L Low 21.0-32.0 [facility] Comment on above: Performed By: #### L 500.2500, L100.0100, L501.3620 ####[facility] [address] [place], [address] Creatinine [Mass/Vol] 2.54 mg/dL High 0.70-1.20 [facility] Comment on above: Performed By: #### L 500.2500, L100.0100, L501.3620 ####[facility] [address] [place], [address] ECRCL 20.75 ml/min Low 50-250 [facility] Comment on above: Performed By: #### L 500.2500, L100.0100, L501.3620 ####[facility] [address] [place], [address] GAP 18 High 5-15 [facility] Comment on above: Performed By: #### L 500.2500, L100.0100, L501.3620 ####[facility] [address] [place], [address] GFR/1.73 sq M.predicted among non-blacks MDRD (S/P/Bld) [Vol rate/Area] 19 mL/min/{1.73_m2} Low >60 [facility] Comment on above: Result Comment: mL/m in/1.73m2 CKD-EPI Creatinine Equation (2020) Performed By: #### L 500.2500, L100.0100, L501.3620 ####[facility] [address] [place], [address] Glucose [Mass/Vol] 178 mg/dL High 70-99 [facility] Comment on above: Performed By: #### L 500.2500, L100.0100, L501.3620 ####[facility] [address] [place], [address] Potassium [Moles/Vol] 4.5 mmol/L Normal 3.3-5.1 [facility] Comment on above: Performed By: #### L 500.2500, L100.0100, L501.3620 ####[facility] [address] [place], [address] Sodium [Moles/Vol] 140 mmol/L Normal 133-145 [facility] Comment on above: Performed By: #### L 500.2500, L100.0100, L501.3620 ####[facility] [address] [place], [address] Urea nitrogen [Mass/Vol] 130 mg/dL Invalid Interpretation Code 03-07 [facility] Comment on above: Result Comment: Crit ical Result(s) Called at: by:??Results read back bysame.Critical Result(s) Called ACOLE at: 1532 by:CHRISTIN??Results read back by same. Performed By: #### L 500.2500, L100.0100, L501.3620 ####[facility] [address] [place], [address] Basophil percentageOrdered B y: Megan Anderson on 03-07-2025 Basophils/100 WBC (Bld) 0.3 % 0-1 [facility] Bilirubin Test strip Ql (U)O rdered By: Megan Anderson on 03-07-2025 Bilirubin Ql (U) Negative Negative [facility] Bilirubin directOrdered By: Maddie Merchant on 03-07-2025 Bilirubin.direct [Mass/Vol] 0.25 mg/dL 0.00-0.30 [facility] CBC W/Diff, Automatedon 04- Absolute Lymph 0.76 X10 3/uL Low 0.83-4.51 [facility] Comment on above: Performed By: #### L 500.2500, L100.0100, L501.3620 ####[facility] [address] [place], [address] Absolute Neut 12.9 X10 3/uL High 2.0-7.7 [facility] Comment on above: Performed By: #### L 500.2500, L100.0100, L501.3620 ####[facility] [address] [place], [address] Basophils/100 WBC (Bld) 0.3 % Normal 0-1 [facility] Comment on above: Performed By: #### L 500.2500, L100.0100, L501.3620 ####[facility] [address] [place], [address] Eosinophils/100 WBC (Bld) 0.4 % Normal 0-5 [facility] Comment on above: Performed By: #### L 500.2500, L100.0100, L501.3620 ####[facility] [address] [place], [address] Erythrocyte distribution width (RBC) [Ratio] 14.5 % Normal 11.6-14.6 [facility] Comment on above: Performed By: #### L 500.2500, L100.0100, L501.3620 ####[facility] [address] [place], [address] Hematocrit (Bld) [Volume fraction] 27.2 % Low 37-47 [facility] Comment on above: Performed By: #### L 500.2500, L100.0100, L501.3620 ####[facility] [address] [place], [address] Hemoglobin (Bld) [Mass/Vol] 8.7 g/dL Low 12.0-15.0 [facility] Comment on above: Performed By: #### L 500.2500, L100.0100, L501.3620 ####[facility] [address] [place], [address] IG% 1.000 High 0.0-0.9 [facility] Comment on above: Result Comment: IG% - Immature Granulocytes (promyelocytes, myelocytes andmetamyelocytes) > 1% indicates that a LEFT SHIFT is Present. Performed By: #### L 500.2500, L100.0100, L501.3620 ####[facility] [address] [place], [address] Lymphocytes/100 WBC (Bld) 5.2 % Low 19-41 [facility] Comment on above: Performed By: #### L 500.2500, L100.0100, L501.3620 ####[facility] [address] [place], [address] MCH (RBC) [Entitic mass] 28.3 pg Normal 27.0-32.0 [facility] Comment on above: Performed By: #### L 500.2500, L100.0100, L501.3620 ####[facility] [address] [place], [address] MCHC (RBC) [Mass/Vol] 32.0 g/dL Normal 32-36 [facility] Comment on above: Performed By: #### L 500.2500, L100.0100, L501.3620 ####[facility] [address] [place], [address] MCV (RBC) [Entitic vol] 88.6 fL Normal 81-99 [facility] Comment on above: Performed By: #### L 500.2500, L100.0100, L501.3620 ####[facility] [address] [place], [address] Monocytes/100 WBC (Bld) 5.3 % Normal 0-10 [facility] Comment on above: Performed By: #### L 500.2500, L100.0100, L501.3620 ####[facility] [address] [place], [address] Neutrophils/100 WBC (Bld) 87.8 % High 47-70 [facility] Comment on above: Performed By: #### L 500.2500, L100.0100, L501.3620 ####[facility] [address] [place], [address] Nucleated RBC (Bld) [#/Vol] 0 10*3/uL Normal 0-5 [facility] Comment on above: Performed By: #### L 500.2500, L100.0100, L501.3620 ####[facility] [address] [place], [address] Platelet mean volume (Bld) [Entitic vol] 11.3 fL Normal 6.2-12.0 [facility] Comment on above: Performed By: #### L 500.2500, L100.0100, L501.3620 ####[facility] [address] [place], [address] Platelets (Bld) [#/Vol] 216 10*3/uL Normal 150-450 [facility] Comment on above: Performed By: #### L 500.2500, L100.0100, L501.3620 ####[facility] [address] [place], [address] RBC (Bld) [#/Vol] 3.07 10*6/uL Low 4.2-5.4 [facility] Comment on above: Performed By: #### L 500.2500, L100.0100, L501.3620 ####[facility] [address] [place], [address] RDW SD 45.6 fl High 35.1-43.9 [facility] Comment on above: Performed By: #### L 500.2500, L100.0100, L501.3620 ####[facility] [address] [place], [address] WBC (Bld) [#/Vol] 14.7 10*3/uL High 4.4-11.0 [facility] Comment on above: Performed By: #### L 500.2500, L100.0100, L501.3620 ####[facility] [address] [place], [address] CPK Total, Creatine Kinaseon 03-07-2025 CPK TOTAL 837 U/L High 24-195 [facility] Comment on above: Performed By: #### L 500.2500, L100.0100, L501.3620 ####[facility] [address] [place], [address] Carbon dioxide, total [Moles /volume] in Central venous bloodOrdered By: Megan Anderson on 03-07-2025 CO2 [Moles/Vol] 16.8 mmol/L Low 21.0-32.0 [facility] Chest 1 View (Portable)on Chest 1 View (Portable) Normal [facility] Chloride assayOrdered By: Teri Anderson on 03-07-2025 Chloride [Moles/Vol] 105 mmol/L 98-108 [facility] Emergency Department Summary on 03-07-2025 Emergency Department Summary Normal [facility] Eosinophil percentageOrdered By: Megan Anderson on 03-07-2025 Eosinophils/100 WBC (Bld) 0.4 % 0-5 [facility] Epithelial cells.squamous LM Ql (Urine sed)Ordered By: Megan Anderson on 03-07-2025 Epithelial cells.squamous LM.HPF (Urine sed) [#/Area] 0 /[HPF] 5-10 [facility] Erythrocyte distribution wid th (RBC) [Ratio]Ordered By: Megan Anderson on 03-07-2025 Erythrocyte distribution width (RBC) [Entitic vol] 45.6 fL High 35.1-43.9 [facility] Erythrocyte distribution wid th ratioOrdered By: Megan Anderson on 03-07-2025 Erythrocyte distribution width (RBC) [Ratio] 14.5 % 11.6-14.6 [facility] Estimation of creatinine chirag aranceOrdered By: Megan Anderson on 03-07-2025 Estimated Creatinine Clearance Calc 20.75 ml/min Low 50-250 [facility] GFR/1.73 sq M.predicted sadia g non-blacks MDRD (S/P/Bld) [Vol rate/Area]Ordered By: Megan Anderson on 03-07-2025 Estimated GFR (MDRD) Non-Af Amer 19 Low >60 [facility] Comment on above: mL/min/1.73m2 CKD-EP I Creatinine Equation (2020) Glucose Ql (U)Ordered By: Teri Anderson on 03-07-2025 Urine Glucose (UA) Normal mg/dl Normal [facility] H AND P Exam - Hospitaliston 03-07-2025 H&P Exam - Hospitalist Normal [facility] HH, Hemoglobin AND Hematocri ton 03-07-2025 Hematocrit (Bld) [Volume fraction] 25.0 % Low 37-47 [facility] Comment on above: Performed By: #### L 100.0600 ####[facility] [address] [place], [place], [address] Hemoglobin (Bld) [Mass/Vol] 8.3 g/dL Low 12.0-15.0 [facility] Comment on above: Performed By: #### L 100.0600 ####[facility] [address] [place], [address] HIP, UNI W/ Pelvis 2-3 Views on 03-07-2025 HIP, UNI W/ Pelvis 2-3 Views Normal [facility] Hematocrit Auto (Bld) [Volum e fraction]Ordered By: Megan Justin on 03-07-2025 Hematocrit (Bld) [Volume fraction] 27.2 % Low 37-47 [facility] Hemoglobin measurementOrdere d By: Meganayde Anderson on 03-07-2025 Hemoglobin (Bld) [Mass/Vol] 8.7 g/dL Low 12.0-15.0 [facility] Immature granulocytes/100 WB C Auto (Bld)Ordered By: Megan Anderson on 03-07-2025 Immature granulocytes/100 WBC (Bld) 1.000 % High 0.0-0.9 [facility] Comment on above: IG% - Immature Granu locytes (promyelocytes, myelocytes and metamyelocytes) > 1% indicates that a LEFT SHIFT is Present. Ketones Test strip Ql (U)Ord ered By: Megan Anderson on 03-07-2025 Ketones Ql (U) 5 mg/dl High Negative [facility] Liver Profileon 03-07-2025 Albumin [Mass/Vol] 3.1 g/dL Low 3.4-4.8 [facility] Comment on above: Order Comment: Comme nts: May add to ED labsComments: may add to ED labs Performed By: #### L 501.5200, L501.2300, L500.3400 ####[facility] [address] [place], [address] ALK PHOS 66 U/L Normal 35-104 [facility] Comment on above: Order Comment: Comme nts: May add to ED labsComments: may add to ED labs Performed By: #### L 501.5200, L501.2300, L500.3400 ####[facility] [address] [place], [address] ALT [Catalytic activity/Vol] 60 U/L High <=34 [facility] Comment on above: Order Comment: Comme nts: May add to ED labsComments: may add to ED labs Performed By: #### L 501.5200, L501.2300, L500.3400 ####[facility] [address] [place], [address] AST [Catalytic activity/Vol] 52 U/L High <=31 [facility] Comment on above: Order Comment: Comme nts: May add to ED labsComments: may add to ED labs Performed By: #### L 501.5200, L501.2300, L500.3400 ####[facility] [address] [place], [address] Bilirubin [Mass/Vol] 0.42 mg/dL Normal 0.00-1.30 [facility] Comment on above: Order Comment: Comme nts: May add to ED labsComments: may add to ED labs Performed By: #### L 501.5200, L501.2300, L500.3400 ####[facility] [address] [place], [address] Bilirubin.direct [Mass/Vol] 0.25 mg/dL Normal 0.00-0.30 [facility] Comment on above: Order Comment: Comme nts: May add to ED labsComments: may add to ED labs Performed By: #### L 501.5200, L501.2300, L500.3400 ####[facility] [address] [place], [address] Globulin (S) [Mass/Vol] 2.8 g/dL Normal 2.2-4.2 [facility] Comment on above: Order Comment: Comme nts: May add to ED labsComments: may add to ED labs Performed By: #### L 501.5200, L501.2300, L500.3400 ####[facility] [address] [place], [address] T PROT 5.9 g/dL Normal 5.9-8.4 [facility] Comment on above: Order Comment: Comme nts: May add to ED labsComments: may add to ED labs Performed By: #### L 501.5200, L501.2300, L500.3400 ####[facility] [address] [place], [place], [address] Lower GI hemoglobin IA Ql (S tl)Ordered By: Megan Anderson on 03-07-2025 Stool Occult Blood (ERICA) Positive Abnormal [facility] Lymphocytes Auto (Unsp spec) [#/Vol]Ordered By: Megan Anderson on 03-07-2025 Lymphocytes (Bld) [#/Vol] 0.76 10*3/uL Low 0.83-4.51 [facility] Lymphocytes/100 WBC Auto (Un sp spec)Ordered By: Megan Anderson on 03-07-2025 Lymphocytes/100 WBC (Bld) 5.2 % Low 19-41 [facility] MCV (mean corpuscular volume ) determinationOrdered By: Megan Anderson on 03-07-2025 MCV (RBC) [Entitic vol] 88.6 fL 81-99 [facility] Magnesiumon 03-07-2025 Magnesium [Mass/Vol] 2.9 mg/dL High 1.5-2.2 [facility] Comment on above: Order Comment: Comme nts: May add to ED labsComments: may add to ED labs Performed By: #### L 501.5200, L501.2300, L500.3400 ####[facility] [address] [place], [place], [address] Magnesium measurement (mass/ volume)Ordered By: Maddie Merchant on 03-07-2025 Magnesium (Unsp spec) [Mass/Vol] 2.9 mg/dL High 1.5-2.2 [facility] Mean corpuscular hemoglobin (MCH) determinationOrdered By: Megan Anderson on 03-07-2025 MCH (RBC) [Entitic mass] 28.3 pg 27.0-32.0 [facility] Mean corpuscular hemoglobin concentration (MCHC) determinationOrdered By: Megan Anderson on 03-07-2025 MCHC (RBC) [Mass/Vol] 32.0 g/dL 32-36 [facility] Mean platelet volume determi nationOrdered By: Megan Anderson on 03-07-2025 Platelet mean volume (Bld) [Entitic vol] 11.3 fL 6.2-12.0 [facility] Microscopic analysis of urin e for red blood cells (RBC)Ordered By: Megan Anderson on 03-07-2025 Microscopic analysis of urine for red blood cells (RBC) 0 SEEN /hpf 0-5 [facility] Urine RBC 0 SEEN /hpf 0-5 [facility] Monocyte percentageOrdered B y: Megan Anderson on 03-07-2025 Monocytes/100 WBC (Bld) 5.3 % 0-10 [facility] Mucus LM Ql (Urine sed)Order ed By: Megan Anderson on 03-07-2025 Mucus Ql (Urine sed) 0 SEEN /hpf [facility] Neutrophil percentageOrdered By: Megan Anderson on 03-07-2025 Neutrophils/100 WBC (Bld) 87.8 % High 47-70 [facility] Nitrite Test strip Ql (U)Ord ered By: Megan Anderson on 03-07-2025 Nitrite Ql (U) Positive High Negative [facility] Nucleated red blood cell per centageOrdered By: Megan Anderson on 03-07-2025 Nucleated RBC/100 WBC (Bld) [Ratio] 0 % 0-5 [facility] Phosphoruson 03-07-2025 Phosphate [Mass/Vol] 5.0 mg/dL High 2.7-4.5 [facility] Comment on above: Order Comment: Comme nts: May add to ED labsComments: may add to ED labs Performed By: #### L 501.5200, L501.2300, L500.3400 ####[facility] [address] [place], [place], [id number] Platelet countOrdered By: Teri Anderson on 03-07-2025 Platelets (Bld) [#/Vol] 216 10*3/uL 150-450 [facility] Potassium (Unsp spec) [Mass/ Vol]Ordered By: Megan Anderson on 03-07-2025 Potassium [Moles/Vol] 4.5 mmol/L 3.3-5.1 [facility] Protein Test strip Ql (U)Ord ered By: Megan Anderson on 03-07-2025 Protein Ql (U) 30 mg/dl High Negative [facility] RBC Auto (Bld) [#/Vol]Ordere d By: Megan Anderson on 03-07-2025 RBC (Bld) [#/Vol] 3.07 10*6/uL Low 4.2-5.4 [facility] Serum creatinine measurement (mass/volume)Ordered By: Megan Anderson on 03-07-2025 Creatinine [Mass/Vol] 2.54 mg/dL High 0.70-1.20 [facility] Serum glucose measurement (m ass/volume)Ordered By: Megan Anderson on 03-07-2025 Glucose [Mass/Vol] 178 mg/dL High 70-99 [facility] Serum or plasma calcium natalia urement (mass/volume)Ordered By: Megan Anderson on 03-07-2025 Calcium [Mass/Vol] 8.8 mg/dL 7.6-11.0 [facility] Serum or plasma creatine kin ase activityOrdered By: Megan Anderson on 03-07-2025 CK [Catalytic activity/Vol] 837 U/L High 24-195 [facility] Serum or plasma urea nitroge n measurement (mass/volume)Ordered By: Megan Anderson on 03-07-2025 Urea nitrogen [Mass/Vol] 130 mg/dL High 4-19 [facility] Comment on above: Critical Result(s) C alled at: by: Results read back by same.Critical Result(s) Called ACOLE at: 1532 by: CHRISTIN Results read back by same. Sodium levelOrdered By: Megan Anderson on 03-07-2025 Sodium [Moles/Vol] 140 mmol/L 133-145 [facility] Squamous epithelial cells de tection in urine sediment by light microscopyOrdered By: Megan Anderson on 03-07-2025 Epithelial cells.squamous LM Ql (Urine sed) 0 SEEN /hpf 5-10 [facility] Stool Occult Blood iFOBon STOB Positive Normal [facility] Comment on above: Performed By: #### M 100.7900 ####[facility] [address] [place], [address] Stool gastrointestinal hemog lobin detection by immunologic methodOrdered By: Megan Anderson on 03-07-2025 Lower GI hemoglobin IA Ql (Stl) Positive Abnormal [facility] Type AND Screenon 03-07-2025 ABO and Rh group Nom (Bld) Blood group A Rh(D) positive Normal [facility] Comment on above: Order Comment: HGI Performed By: #### B TS ####[facility] [address] [place], [address] Urinalysis, Completeon 03-07 BACTERIA 1+ /hpf Normal None Seen [facility] Comment on above: Order Comment: COLLE CTOR TO SPECIFY Performed By: #### L 400.0001 ####[facility] [address] [place], [address] WBC >100 SEEN Normal 0-5 [facility] Comment on above: Order Comment: CORRIE CTOR TO SPECIFY Performed By: #### L 400.0001 ####[facility] [address] [place], [address] EPI,SQUAMOUS 0 SEEN Normal 5-10 [facility] Comment on above: Order Comment: COLLE CTOR TO SPECIFY Performed By: #### L 400.0001 ####[facility] [address] [place], [address] Mucus Ql (Urine sed) 0 SEEN Normal [facility] Comment on above: Order Comment: COLLE CTOR TO SPECIFY Performed By: #### L 400.0001 ####[facility] [address] [place], [address] RBC 0 SEEN Normal 0-5 [facility] Comment on above: Order Comment: COLLE CTOR TO SPECIFY Performed By: #### L 400.0001 ####[facility] [address] [place], [address] Urine blood detectionOrdered By: Megan Anderson on 03-07-2025 Urine Occult Blood 150 /ul High Negative [facility] Urine clarityOrdered By: Carmen Anderson on 03-07-2025 Clarity (U) Cloudy Clear [facility] Urine color determinationOrd ered By: Megan Anderson on 03-07-2025 Color (U) Yellow Yellow [facility] Urine cultureOrdered By: Mervin Becker on 03-07-2025 Bacteria identified Cx Nom (U) Klebsiella oxytoca Abnormal [facility] Urine glucose detectionOrder ed By: Megan Anderson on 03-07-2025 Glucose Ql (U) Normal mg/dl Normal [facility] Urine leukocyte esterase det ection by dipstickOrdered By: Megan Anderson on 03-07-2025 Leukocyte esterase Test strip Ql (U) 500 /ul High Negative [facility] Urine pHOrdered By: Megan louis on 03-07-2025 pH (U) 6.0 [pH] 5.0 - 8.0 [facility] Urine sediment bacteria coun t by microscopy (number/high power field)Ordered By: Megan Anderson on 03-07-2025 Bacteria LM.HPF (Urine sed) [#/Area] 1 /[HPF] None Seen [facility] Urine specific gravity measu rementOrdered By: Megan Anderson on 03-07-2025 Specific gravity (U) [Rel density] 1.015 1.002-1.030 [facility] Urine urobilinogen measureme ntOrdered By: Megan Anderson on 03-07-2025 Urobilinogen Ql (U) Normal mg/dl Normal [facility] Urobilinogen Ql (U)Ordered B y: Megan Anderson on 03-07-2025 Urine Urobilinogen Normal mg/dl Normal [facility] White blood cell (WBC) count Ordered By: Megan Anderson on 03-07-2025 WBC (Bld) [#/Vol] 14.7 10*3/uL High 4.4-11.0 [facility] White blood cell countOrdere d By: Megan Anderson on 03-07-2025 Urine WBC >100 SEEN /hpf 0-5 [facility] White blood cell count >100 SEEN /hpf 0-5 [facility] Culture, Anaerobic Any Sourc adonis 2025 CUAN Normal [facility] Comment on above: Performed By: #### M 100.2000, M100.3000, M100.4001 ####[facility] [address] [place], [address] Wound Cultureon 02-28-2025 [facility] Comment on above: Performed By: #### M 100.2000, M100.3000, M100.4001 ####[facility] [address] [place], [address] Gram Stainon 02-27-2025 GS LEFT FOOT WOUND GRAM STAIN Gram Stain No Epithelial cells 1+ Gram positive cocci 1+ White Blood Cells Normal [facility] Comment on above: Performed By: #### M 100.2000, M100.3000, M100.4001 ####[facility] [address] [place], [address] Anaerobic cultureOrdered By: Patel Irene on 02-26-2025 Bacteria identified Anaer cx Nom (Unsp spec) Anaerobic cocci Abnormal [facility] Bacteria identified Anaer cx Nom (Unsp spec)Ordered By: Patel Irene on 02-26-2025 Anaerobic Culture Anaerobic cocci Abnormal [facility] Gram stainOrdered By: Keri Irene on 02-26-2025 Microscopic observation Gram stain Nom (Unsp spec) [facility] Routine wound cultureOrdered By: Patel Irene on 02-26-2025 Microbial culture, routine Meth. resistant Staph. aureus Abnormal [facility] Wound Culture Meth. resistant Stap h. aureus Abnormal [facility] Wound Cultureon 02-19-2025 [facility] Comment on above: Performed By: #### M 100.3000, M100.2000 ####[facility] [address] [place], [address] Gram Stainon 02-17-2025 GS Gram Stain No White Blood Cells No organisms seen Normal [facility] Comment on above: Performed By: #### M 100.3000, M100.1999 ####[facility] [address] [place], [address] Decalcification bone/plaqueo n 02-16-2025 Decalcification bone/plaque Normal [facility] Comment on above: Performed By: #### P DEC ####[facility] [address] [place], [address] Gram stainOrdered By: Rishi Vasquez on 02-16-2025 Microscopic observation Gram stain Nom (Unsp spec) [facility] Routine wound cultureOrdered By: Rishi Vasquez on 02-16-2025 Microbial culture, routine Meth. resistant Staph. aureus Abnormal [facility] Wound Culture Meth. resistant Stap h. aureus Abnormal [facility] Wound Culture Negative Abnormal [facility] Wound Cultureon 02-06-2025 WC Normal [facility] Comment on above: Performed By: #### M 100.3000, M100.1999 ####[facility] [address] [place], [address] Gram Stainon 02-04-2025 GS Positive Normal [facility] Comment on above: Performed By: #### M 100.3000, M100.1999 ####[facility] [address] [place], [address] Gram stainOrdered By: Rishi Vasquez on 02-03-2025 Microscopic observation Gram stain Nom (Unsp spec) [facility] Routine wound cultureOrdered By: Rishi Vasquez on 02-03-2025 Microbial culture, routine Meth. resistant Staph. aureus Abnormal [facility] Wound Culture Meth. resistant Stap h. aureus Abnormal [facility] Lower Ext Art Exam w/o Exerc kris 01-06-2025 Lower Ext Art Exam w/o Exercis Normal [facility] Culture, Anaerobic Any Sourc adonis 01-03-2025 CUAN ONLY AN AEROBIC SWAB WAS RECEIVED FOR CULTURE. GROWTH OF ANAEROBES MAY BE INHIBITED. No anaerobic bacteria isolated. Normal [facility] Comment on above: Performed By: #### M 100.4001, M100.2000, M100.3000 ####[facility] [address] [place], [address] Wound Cultureon 01-02-2025 WC Normal [facility] Comment on above: Performed By: #### M 100.4001, M100.2000, M100.3000 ####[facility] [address] [place], [address] Anaerobic cultureOrdered By: Patel Irene on 12-31-2024 Bacteria identified Anaer cx Nom (Unsp spec) No anaerobic bacteria isolated. [facility] Bacteria identified Anaer cx Nom (Unsp spec)Ordered By: Patel Irene on 12-31-2024 Anaerobic Culture No anaerobic bacteri a isolated. [facility] Gram Stainon 12-31-2024 GS ONLY AN AEROBIC SWAB WAS RECEIVED FOR CULTURE. GROWTH OF ANAEROBES MAY BE INHIBITED. Gram Stain 2+ Gram positive cocci 2+ Red Blood Cells Normal [facility] Comment on above: Performed By: #### M 100.4001, M100.2000, M100.3000 ####[facility] [address] [place], [address] Gram stainOrdered By: Keri Irene on 12-31-2024 Microscopic observation Gram stain Nom (Unsp spec) [facility] Routine wound cultureOrdered By: Patel Irene on 12-31-2024 Microbial culture, routine Meth. resistant Staph. aureus Abnormal [facility] Wound Culture Meth. resistant Stap h. aureus Abnormal [facility] L3410.9998on 12-24-2024 [facility] Misc. COMMENT Normal . [facility] Comment on above: Order Comment: [id number] 1WOUND CULTURE Result Comment: Test Ordered: [id number] Anaerobic/Aerobic/Gram StainAnaerobic Culture Note: CB Final report [...] as CeftarolineLight growthResult 2 Note: [A ] Enterococcus faecalis Reference Range: .For Enterococcus species, aminoglycosides (except for high-level resistance screening), cephalosporins, clindamycin,and trimethoprim-sulfamethoxazole are not effectiveclinically. (CLSI, P726-N63, 2016)Light growthEnterococci susceptible to penicillin are predictablysusceptible to ampicillin, amoxicillin, ampicillin-sulbactam, amoxicillin-clavulanate, and piperacillin-tazobactam for nlg-eujh-ehvwqxadi producing enterococci.(CLSI 2018)Antimicrobial Susceptibility Comment CB Reference Range: . S = Susceptible; I = Intermediate; R = Resistant P = Positive; N = Negative MICS are expressed in micrograms per mL Antibiotic RSLT#1 RSLT#2 RSLT#3 RSLT#4Ciprofloxacin RClindamycin RErythromycin RGentamicin SLevofloxacin RLinezolid S SOxacillin RPenicillin R SRifampin STetracycline STrimethoprim/Sulfa SVancomycin S SGram Stain Result Note: Final report Reference Range: .Result 1 Comment CB Reference Range: .No white blood cells seen.Result 2 Note: CB No organisms seen Reference Range: .Performed at: - [facility] [id number] Director: Chele Santoyo PhD, Phone: [phone] Performed By: #### L 3410.9998 ####[facility] [address] [place], [place], [address] CNOVon 12-05-2024 CNOV Office Visit (FAMPWS ) -------- GELY NEWMAN ([id number]) 1950 F Date Time Provider Department 12/05/24 9:00 AM RISHI VASQUEZ During your visit today, we recorded the following information about you: Temperature Pulse Respiration Blood pressure 97 degrees 60/minute 16/minute 110/60 Weight 72 kg Rishi Vasquez, DO 12/05/2024 11:10 AM Signed Patient presents with: 6 Month Exam HPI: Gely Newman is a 74 year old female who presents to the office today for review of health conditions. Concerns today: PAD, vascular disease, no recent new ulcerations or skin sores Sciatica, b/l thigh pain, significant, worse with prolonged standing or walking. Seeing Dr. Franco for pain mgmt at [facility] and she is now taking Lyrica instead [...] mellitus (HCC) Coronary artery disease Dr. Ch Associate Director, 90% blockage- unable to do stenting Diabetes mellitus type 2 in obese Diabetic feet (HCC) Gangrene (HCC) 2012 RIGHT FOOT Hypertension Mild non proliferative diabetic retinopathy (HCC) 06/11/2013 Both eyes, Dr. Ortiz [facility]-03/25/2020 left mild, right moderate Multiple thyroid nodules last US 01/2015 Peripheral artery disease (HCC) due to Diabetes mellitus, Dr. Kwaku Moscoso Rotator cuff syndrome of left shoulder Dr. 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 Deluna [facility] SLCTV CATHJ EA 1ST ORD ABDL PEL/LXTR ART BRNCH 06-07-16 APLL Social History Tobacco Use Smoking status: Former Current packs/day: 0.00 Average packs/day: 0.5 packs/day for 45.0 years (22.5 ttl pk-yrs) Types: Cigarettes Start date: 12/20/1967 Quit date: 12/20/2012 Years since quittin.9 Smokeless tobacco: Never Substance Use Topics Alcohol use: No Drug use: No FAMILY H (more content not included)... Normal [facility] 25(OH)D3 SerPl-ncon 2024 25-hydroxyvitamin D3 [Mass/Vol] 62.6 ng/mL Normal 31.0-80.0 [facility] Comment on above: Order Comment: Speci men Type: BLOOD SPECIMEN Ordering Facility: [facility] Address: [address] [place] [address] Result Comment: Clas sification of 25 [place] Vitamin D status: Deficiency/Insufficiency: < or = 30 ng/ml. Sufficiency/Optimal Levels: 31-80 ng/mL Toxicity: > 100 ng/mL. Test performed by chemiluminescent immunoassay. Performed By: #### 2 132-9 #### [facility] CLIA [id number] [address] [place], [place] [address] [place] [address] [place] CBC panel Auto (Bld)on 12-01 Erythrocyte distribution width (RBC) [Ratio] 12.5 % Normal 11.5-15.0 [facility] Comment on above: Order Comment: Speci men Type: BLOOD SPECIMENOrdering Facility: [facility] Address: [address] [place] [address] Performed By: #### 5 8410-2 ####[facility]CLIA [id number] [place] [address] [place] Hematocrit (Bld) [Volume fraction] 37.8 % Normal 36.0-46.0 [facility] Comment on above: Order Comment: Speci men Type: BLOOD SPECIMENOrdering Facility: [facility] Address: [address] [place] [address] Performed By: #### 5 8410-2 ####[facility] LABIA [id number] [place] [address] [place] Hemoglobin (Bld) [Mass/Vol] 12.1 g/dL Normal 11.5-15.5 [facility] Comment on above: Order Comment: Speci men Type: BLOOD SPECIMENOrdering Facility: [facility] Address: [address] [place] [address] Performed By: #### 5 8410-2 ####[facility] LABIA [id number] [place] [address] [place] MCH (RBC) [Entitic mass] 31.2 pg Normal 26.0-34.0 [facility] Comment on above: Order Comment: Speci men Type: BLOOD SPECIMENOrdering Facility: [facility] Address: [address] [place] [address] Performed By: #### 5 8410-2 ####[facility] LABIA [id number] [place] [address] [place] MCHC (RBC) [Mass/Vol] 32.0 g/dL Normal 30.5-36.0 [facility] Comment on above: Order Comment: Speci men Type: BLOOD SPECIMENOrdering Facility: [facility] Address: [address] [place] [address] Performed By: #### 5 8410-2 ####[facility] LABIA [id number] [place] [address] [place] MCV (RBC) [Entitic vol] 97.4 fL Normal 80.0-100.0 [facility] Comment on above: Order Comment: Speci men Type: BLOOD SPECIMENOrdering Facility: [facility] Address: [address] [place] [address] Performed By: #### 5 8410-2 ####[facility] LABCLIA [id number] [place] [address] [place] Nucleated RBC (Bld) [#/Vol] 10*3/uL Normal <0.01 [facility] Comment on above: Order Comment: Speci men Type: BLOOD SPECIMENOrdering Facility: [facility] Address: [address] [place] [address] Performed By: #### 5 8410-2 ####[facility] LABIA [id number] [place] [address] [place] Platelet mean volume (Bld) [Entitic vol] 12.3 fL Normal 9.0-12.7 [facility] Comment on above: Order Comment: Speci men Type: BLOOD SPECIMENOrdering Facility: [facility] Address: [address] [place] [address] Performed By: #### 5 8410-2 ####[facility] LABIA [id number] [place] [address] [place] Platelets (Bld) [#/Vol] 160 10*3/uL Normal 150-400 [facility] Comment on above: Order Comment: Speci men Type: BLOOD SPECIMENOrdering Facility: [facility] Address: [address] [place] [address] Performed By: #### 5 8410-2 ####[facility] LABIA [id number] [place] [address] [place] RBC (Bld) [#/Vol] 3.88 10*6/uL Low 3.90-5.20 [facility] Comment on above: Order Comment: Speci men Type: BLOOD SPECIMENOrdering Facility: [facility] Address: [address] [place] [address] Performed By: #### 5 8410-2 ####[facility] LABIA [id number] [place] [address] [place] WBC (Bld) [#/Vol] 5.99 10*3/uL Normal 3.70-11.00 [facility] Comment on above: Order Comment: Speci men Type: BLOOD SPECIMENOrdering Facility: [facility] Address: [address] [place] [address] Performed By: #### 5 8410-2 ####[facility] LABIA [id number] [place] [address] [place] Comprehensive metabolic 2000 panelon 12-01-2024 Albumin [Mass/Vol] 4.0 g/dL Normal 3.9-4.9 [facility] Comment on above: Order Comment: Speci men Type: BLOOD SPECIMENOrdering Facility: [facility] Address: [address] [place] [address] Performed By: #### 2 4323-8, 3024-7, 42048-2, 3016-3 ####[facility] LABIA [id number] [place] [address] [place] ALP [Catalytic activity/Vol] 67 U/L Normal 34-123 [facility] Comment on above: Order Comment: Speci men Type: BLOOD SPECIMENOrdering Facility: [facility] Address: [address] [place] [address] Performed By: #### 2 4323-8, 3024-7, 65294-6, 3016-3 ####[facility] LABIA [id number] [place] [address] [place] ALT [Catalytic activity/Vol] 19 U/L Normal 7-38 [facility] Comment on above: Order Comment: Speci men Type: BLOOD SPECIMENOrdering Facility: [facility] Address: [address] [place] [address] Performed By: #### 2 4323-8, 3024-7, 93580-5, 3016-3 ####[facility] LABCLIA [id number] [address] [address] [place] Anion gap [Moles/Vol] 16 mmol/L High 8-15 [facility] Comment on above: Order Comment: Speci men Type: BLOOD SPECIMENOrdering Facility: [facility] Address: [address] [place], [place] [address] Performed By: #### 2 4323-8, 3024-7, 53602-9, 3016-3 ####[facility] LABCLIA [id number] [address] [address] [place] AST [Catalytic activity/Vol] 31 U/L Normal 13-35 [facility] Comment on above: Order Comment: Speci men Type: BLOOD SPECIMENOrdering Facility: [facility] Address: [address] [place], [place] [address] Performed By: #### 2 4323-8, 3024-7, 65081-1, 3016-3 ####[facility] LABCLIA [id number] [address] [address] [place] Bilirubin [Mass/Vol] 0.4 mg/dL Normal 0.2-1.3 [facility] Comment on above: Order Comment: Speci men Type: BLOOD SPECIMENOrdering Facility: [facility] Address: [address] [place] [address] Performed By: #### 2 4323-8, 3024-7, 66458-9, 3016-3 ####[facility] LABCLIA [id number] [address] [address] [place] Calcium [Mass/Vol] 10.0 mg/dL Normal 8.5-10.2 [facility] Comment on above: Order Comment: Speci men Type: BLOOD SPECIMENOrdering Facility: [facility] Address: [address] [place], [place] [address] Performed By: #### 2 4323-8, 3024-7, 33934-8, 3016-3 ####[facility] LABCLIA [id number] [place] [address] [place] Chloride [Moles/Vol] 108 mmol/L High 98-107 [facility] Comment on above: Order Comment: Speci men Type: BLOOD SPECIMENOrdering Facility: [facility] Address: [address] [place] [address] Performed By: #### 2 4323-8, 3024-7, 17617-8, 3016-3 ####[facility] LABIA [id number] [place] [address] [place] CO2 [Moles/Vol] 20 mmol/L Low 22-30 [facility] Comment on above: Order Comment: Speci men Type: BLOOD SPECIMENOrdering Facility: [facility] Address: [address] [place] [address] Performed By: #### 2 4323-8, 3024-7, 51969-8, 3016-3 ####[facility] LABIA [id number] [place] [address] [place] Creatinine [Mass/Vol] 1.11 mg/dL High 0.58-0.96 [facility] Comment on above: Order Comment: Speci men Type: BLOOD SPECIMENOrdering Facility: [facility] Address: [address] [place] [address] Performed By: #### 2 4323-8, 3024-7, 01848-2, 3016-3 ####[facility] LABIA [id number] [place] [address] [place] Creatinine and Glomerular filtration rate.predicted panel (S/P/Bld) 53 mL/min/1.73m??? Low >=60 [facility] Comment on above: Order Comment: Speci men Type: BLOOD SPECIMENOrdering Facility: [facility] Address: [address] [place] [address] Result Comment: Elena mated Glomerular Filtration Rate [...] GFR. Performed By: #### 2 4323-8, 3024-7, 47655-5, 3015-3 ####[facility] LABCLIA [id number] [address] [address] [place] Glucose [Mass/Vol] 79 mg/dL Normal 74-99 [facility] Comment on above: Order Comment: Johana jarvis Type: BLOOD SPECIMENOrdering Facility: [facility] Address: [address] [place] [id number] Result Comment: The [place] [employer] (ADA) provides guidance for cutoff [...] Standards of Medical Care in Diabetes 2016, [place] [employer]. Diabetes Care. 2016.39(Suppl 1). Performed By: #### 2 4323-8, 3024-7, 41643-7, 3015-3 ####[facility] LABIA [id number] [address] [address] [place] Potassium [Moles/Vol] 4.3 mmol/L Normal 3.7-5.1 [facility] Comment on above: Order Comment: Speci men Type: BLOOD SPECIMENOrdering Facility: [facility] Address: [address] [place] [address] Performed By: #### 2 4323-8, 3024-7, 90124-5, 3016-3 ####[facility] LABIA [id number] [place] [address] [place] Protein [Mass/Vol] 6.6 g/dL Normal 6.3-8.0 [facility] Comment on above: Order Comment: Speci men Type: BLOOD SPECIMENOrdering Facility: [facility] Address: [address] [place] [address] Performed By: #### 2 4323-8, 3024-7, 67902-0, 3016-3 ####[facility] LABIA [id number] [place] [address] [place] Sodium [Moles/Vol] 144 mmol/L Normal 136-144 [facility] Comment on above: Order Comment: Speci men Type: BLOOD SPECIMENOrdering Facility: [facility] Address: [address] [place] [address] Performed By: #### 2 4323-8, 3024-7, 07421-4, 3016-3 ####[facility] LABIA [id number] [place] [address] [place] Urea nitrogen [Mass/Vol] 51 mg/dL High 7-21 [facility] Comment on above: Order Comment: Speci men Type: BLOOD SPECIMENOrdering Facility: [facility] Address: [address] [place] [address] Performed By: #### 2 4323-8, 3024-7, 57087-0, 3016-3 ####[facility] LABIA [id number] [place] [address] [place] HbA1c (Bld)on 12-01-2024 Average glucose Estimated from glycated hemoglobin (Bld) [Mass/Vol] 126 mg/dL Normal [facility] Comment on above: Order Comment: Speci men Type: BLOOD SPECIMEN Ordering Facility: [facility] Address: [address] [place] [address] Result Comment: eAG: (Estimated average glucose) is a calculated value from HgbA1c and is premium representative of the average blood glucose level in the last 2-3 month period. Performed By: #### 5 5454-3 #### [facility] CLIA [id number] [address] [place] [address] [place] HbA1c (Bld) [Mass fraction] 6.0 % High 4.3-5.6 [facility] Comment on above: Order Comment: Speci men Type: BLOOD SPECIMEN Ordering Facility: [facility] Address: [address] [place] [address] Result Comment: Amer ican Diabetes Association guidelines indicate that patients with HgbA1c in the range 5.7-6.4% are at increased risk for development of diabetes, and intervention by lifestyle modification may be beneficial. HgbA1c greater or equal to 6.5% is considered diagnostic of diabetes. Performed By: #### 5 5454-3 #### [facility] CLIA [id number] [address] [place] [address] [place] Lipid 1996 panelon 5 Cholesterol [Mass/Vol] 138 mg/dL Normal <200 [facility] Comment on above: Order Comment: Johana men Type: BLOOD SPECIMENOrdering Facility: [facility] Address: [address] [place] [address] Result Comment: <200 mg/dL, Desirable 200-239 mg/dL, Borderline high >239 mg/dL, High Performed By: #### 2 4323-8, 3024-7, 76651-6, 3016-3 ####[facility] LABCLIA [id number] [place] [address] [place] Cholesterol in HDL [Mass/Vol] 44 mg/dL Normal >39 [facility] Comment on above: Order Comment: Johana men Type: BLOOD SPECIMENOrdering Facility: [facility] Address: [address] [place] [address] Result Comment: 40-5 9 mg/dL, Acceptable >59 mg/dL, High: Negative risk factor for coronary heart disease <40 mg/dL, Low: Positive risk factor for coronary heart disease Performed By: #### 2 4323-8, 3024-7, 12544-9, 3015-3 ####[facility] LABCLIA [id number] [address] [address] [place] Cholesterol in LDL [Mass/Vol] 64 mg/dL Normal <100 [facility] Comment on above: Order Comment: Speci men Type: BLOOD SPECIMENOrdering Facility: [facility] Address: [address] [place] [address] Result Comment: <100 mg/dL, Optimal 100-129 mg/dL, Near optimal/above optimal 130-159 mg/dL, Borderline high 160-189 mg/dL, High >189 mg/dL, Very high Secondary prevention optimal LDL Cholesterol levels are recommended to be < 70 mg/dL Performed By: #### 2 4323-8, 3023-7, 66232-9, 3015- ####[facility] LABCLIA [id number] [address] [address] [place] Cholesterol in LDL/Cholesterol in HDL [Mass ratio] 1.45 {ratio} Normal <2.54 [facility] Comment on above: Order Comment: Speci men Type: BLOOD SPECIMENOrdering Facility: [facility] Address: [address] [place] [address] Result Comment: Vlad shresthace: 1. National Cholesterol Education Program ATP III Guideline At-A-Glance Quick Desk Reference: National Heart, Lung, and Blood [place]. National Institutes of Health. 2001: NIH Publication No. 01-3305. 2. An International Atherosclerosis Society position paper: global recommendations for the management of dyslipidemia: executive summary, Atherosclerosis. 2014: 232(2):410-413. Performed By: #### 2 4323-8, 3024-7, 51115-0, 3015-3 ####[facility] LABCLIA [id number] [address] [address] [place] Cholesterol in VLDL [Mass/Vol] 30 mg/dL High <30 [facility] Comment on above: Order Comment: Speci men Type: BLOOD SPECIMENOrdering Facility: [facility] Address: [address] [id number] Performed By: #### 2 4323-8, 3024-7, 89205-6, 3016-3 ####[facility] LABCLIA [id number] [address] [address] [place] Cholesterol non HDL [Mass/Vol] 94 mg/dL Normal <130 [facility] Comment on above: Order Comment: Speci men Type: BLOOD SPECIMENOrdering Facility: [facility] Address: [address] [place] [address] Result Comment: <130 mg/dL, Optimal 130-159 mg/dL, Near optimal/above optimal 160-189 mg/dL, Borderline high 190-219 mg/dL, High >219 mg/dL, Very high Secondary prevention optimal non HDL Cholesterol levels are recommended to be <100 mg/dL Performed By: #### 2 4323-8, 3024-7, 59411-1, 3016-3 ####[facility] LABCLIA [id number] [address] [address] [place] Cholesterol.total/Chol esterol in HDL [Mass ratio] 3.14 {ratio} Normal <5.10 [facility] Comment on above: Order Comment: Speci men Type: BLOOD SPECIMENOrdering Facility: [facility] Address: [address] [place] [address] Performed By: #### 2 4323-8, 3024-7, 98674-5, 3016-3 ####[facility] LABCLIA [id number] [address] [address] [place] FASTING TIME 14 hrs Normal [facility] Comment on above: Order Comment: Speci men Type: BLOOD SPECIMENOrdering Facility: [facility] Address: [facility] [place] [address] Performed By: #### 2 4323-8, 3024-7, 79229-1, 6-3 ####[facility] LABCLIA [id number] [place] [address] [place] Triglyceride [Mass/Vol] 151 mg/dL High <150 [facility] Comment on above: Order Comment: Speci men Type: BLOOD SPECIMENOrdering Facility: [facility] Address: [address] [place] [address] Result Comment: <150 mg/dL, Normal 150-199 mg/dL, Borderline high 200-499 mg/dL, High >499 mg/dL, Very high Performed By: #### 2 4323-8, 4-7, 92173-2, 3015-3 ####[facility] LABCLIA [id number] [place] [address] [place] T4 Free SerPl-mCncon 025 Free T4 [Mass/Vol] 2.0 ng/dL High 0.9-1.7 [facility] Comment on above: Order Comment: Speci men Type: BLOOD SPECIMENOrdering Facility: [facility] Address: [address] [place] [address] Performed By: #### 2 4323-8, 3023-7, 61847-9, 3015-3 ####[facility] LABCLIA [id number] [place] [address] [place] TSH SerPl-aCncon 12-01-2024 TSH Qn 0.005 m[IU]/L Low 0.270-4.200 [facility] Comment on above: Order Comment: Speci men Type: BLOOD SPECIMENOrdering Facility: [facility] Address: [address] [place] [address] Performed By: #### 2 4323-8, 4-7, 76645-0, 3015-3 ####[facility] LABCLIA [id number] [place] [address] [place] Vit B12 SerPl-mCncon 025 Cobalamin (Vitamin B12) [Mass/Vol] 1268 pg/mL High 232-1245 [facility] Comment on above: Order Comment: Speci men Type: BLOOD SPECIMEN [facility] Address: [address] [place] [address] Performed By: #### 2 132-9 #### [facility] CLIA [id number] [address] [place] [address] [id number] [place] [address] [facility] CNPNon 09-10-2024 CNPN Telephone (FAMPWS) -------- GELY NEWMAN ([id number]) 1950 F Date Time Provider Department 09/10/24 [facility] your visit today, we recorded [...] out to provider. Requests call back at [phone] with provider response. GORGE Bo Jordan L, [...] Fully Assessed Reason for Visit: Patient Question [1677] Prescriptions as of 09/15/2024 - gabapentin (NEURONTIN) [...] 1 tablet by mouth once daily. - Vpyeuctt-Pusj-Nrm-Folic Acid 18-0.4 mg tab Take 1 tablet [...] [L72.3, L08.9] 02/26/2019 Coronary artery disease involving te-moak heart *05/28/2019 Abnormal urine odor [R82.90] 05/28/2019 [...] Encounter Status:Closed by MEAGAN MARTINEZ on 09/15/24 Normal [facility] Gabriel 08-18-2024 [facility] Telephone (FAMPWS) -------- GELY NEWMAN ([id number]) 1950 F Date Time Provider Department 08/18/24 VASQUEZRISHI LINDA Evelyne [facility] During your visit today, we recorded the following information about you: Meagan Martinez MA 08/18/2024 8:48 AM Signed Pt wrote into the office via [employer] on 08/16/24 with questions regarding medications. Please [...] Fully Assessed Reason for Visit: Patient Question [2416] Cmt: Fish oil - Remus 3 Prescriptions as of 08/19/2024 - gabapentin [...] 1 tablet by mouth once daily. - Nsrhudur-Zgvz-Vcj-Folic Acid 18-0.4 mg tab Take 1 tablet [...] [L72.3, L08.9] 02/26/2019 Coronary artery disease involving te-moak heart *05/28/2019 Abnormal urine odor [R82.90] 05/28/2019 [...] Encounter Status:Closed by LEATHA LONG on 08/19/24 [facility] Gabriel 08-08-2024 [facility] Telephone (FAMPWS) -------- TRENTGELY ORTEGA ([id number]) 1950 F Date Time Provider Department 08/08/24 RISHI VASQUEZ During your visit today, we recorded the following information about you: Hina Lomeli RN 08/08/2024 8:25 AM Signed Patient calls and [...] NAME OF THE MEDICATION IS ISCHROLBARSA. THE [employer] SAID IT IS A STEROID. WHAT [...] 1 tablet by mouth once daily. - Wwnkigbc-Wikv-Zkj-Folic Acid 18-0.4 mg tab Take 1 tablet [...] [L72.3, L08.9] 02/26/2019 Coronary artery disease involving te-moak heart *05/28/2019 Abnormal urine odor [R82.90] 05/28/2019 Stage 3 chronic kidney disease (HCC) [N18.30] 12/03/2019 Fatigue [R53.83] more content not included)... Normal [facility] Pelvis (Routine)on 4 Pelvis (Routine) Normal [facility] Shoulder min 2 Viewson 06-19 Shoulder min 2 Views Normal [facility]Non [facility]-20[facility] -------- GELY NEWMAN ([id number]) 1950 F Date Time Provider Department 06/13/24 RISHI VASQUEZ [facility]WS During your visit today, we recorded the following information about you: Nasim López LPN 06/13/2024 11:19 AM Signed Needs referral faxed to [facility] for Pain Management. This has been faxed. [...] 1 tablet by mouth once daily. - Isrbvwfi-Tmza-Gtv-Folic Acid 18-0.4 mg tab Take 1 tablet [...] [L72.3, L08.9] 02/26/2019 Coronary artery disease involving te-moak heart *05/28/2019 Abnormal urine odor [R82.90] 05/28/2019 [...] by NASIM LÓPEZ LPN on 06/13/24 Normal [facility] CNCOon 06-04-2024 CNCO HNO ID: [id number] Author: COORDINATOR, MAMMOGRAPHY, ? Service: ? Author Type: Physician Type: Letter Filed: 06/04/2024 14:01 Note Text: June 04, 2024 PID: [id number] Gely Newman [address] [place] [address] Dear Ms. Newman, We are pleased to [...] report will be kept on file at [facility] as part of your permanent medical record and are available for your continuing care. Thank you for allowing us to help in meeting your health care needs. Sincerely, Dr. Monteiro Interpreting Radiologist [facility] (Normal over 40) Normal [facility] CNOVon 06-04-2024 CNOV Office Visit (FAMPWS ) -------- GELY NEWMAN ([id number]) 1950 F Date Time Provider Department 06/04/24 9:40 AM PEDRO RISHI Evelyne LUA During your visit today, we recorded the [...] mellitus (HCC) Coronary artery disease Dr. Ch Associate Director, 90% blockage- unable to do stenting Diabetes mellitus type 2 in obese Diabetic feet (HCC) Gangrene (HCC) 2012 RIGHT FOOT Hypertension Mild non proliferative diabetic retinopathy (HCC) 06/11/2013 Both eyes, Dr. Ortiz [facility]-03/25/2020 left mild, right moderate Multiple thyroid nodules last US 01/2015 Peripheral artery disease (HCC) due to Diabetes mellitus, Dr. Kwaku Moscoso Rotator cuff syndrome of left shoulder Dr. Deluna [facility] PAST SURGICAL HISTORY Procedure Laterality Date AMPUTATION [...] 04-08-13 ROTATOR CUFF REPAIR 03/11/14 Dr. Deluna [facility] SLCTV CATHJ EA 1ST ORD ABDL PEL/LXTR [...] Allergen React (more content not included)... [facility] Telephone (FAMWS) -------- GELY NEWMAN ([id number]) 1950 F Date Time Provider Department 06/04/24 [facility] During your visit today, we recorded the following information about you: Rishi Vasquez DO 06/04/2024 2:36 PM Signed Please inform patient that her mammogram is normal/negative. She will need routine screening mammogram in 1 year. Thanks BOB Ernst Beth, LPN 06/04/2024 2:50 PM Signed Phoned patient left message to return call and ask to speak to a nurse. Keisha Coronado, RN 06/04/2024 3:59 PM Signed Spoke with [...] 1 tablet by mouth once daily. - Marasuzy-Xijy-Bua-Folic Acid 18-0.4 mg tab Take 1 tablet [...] [L72.3, L08.9] 02/26/2019 Coronary artery disease involving te-moak heart *05/28/2019 Abnormal urine odor [R82.90] 05/28/2019 [...] Status:Closed by KEISHA CORONADO on 06/04/24 Normal [facility] ALEJANDRO SCREENING W Carri 06-03 ALEJANDRO SCREENING W BEN * * *Final Report* * * DATE OF EXAM: Jun 03 2024 9:42AM WRW [id number] - [facility] SCREENING W BEN / PROCEDURE REASON: Encounter for screening mammogram for malignant neoplasm of breast * * * * Physician Interpretation * * * * RESULT: #[id number] - ALEJANDRO SCREENING W BEN BILATERAL DIGITAL SCREENING MAMMOGRAM [...] mammogram, 07/10/2023 mammogram, and 06/05/2022 mammogram - [facility]. There are scattered areas of fibroglandular density. No significant masses, calcifications, or other findings are seen in either breast. There has been no significant interval change. IMPRESSION: NEGATIVE There is no mammographic evidence of malignancy. A 1 year screening mammogram is recommended. Wil newman/marcelino:06/04/2024 14:01:13 [place] Pumper(s): Elizabeth Sandoval, [facility] letter sent: Normal over 40 Mammogram BI-RADS: [...] Health, Family Medicine, and Medical/Surgical Oncology, the [facility] has carefully reviewed the data and reached [...] their providers when to stop screening mammograms. Marine Machinist: Marcelino Transcribe Date/Time: Jun 03 2024 9:23A Dictated by: WIL MONTEIRO MD This examination was interpreted and the report reviewed and electronically signed by: WIL MONTEIRO MD on Jun 04 2024 2:01PM EST [id number] Normal [facility] 25(OH)D3 [facility] Montgomeryl-ncon 2023 25-hydroxyvitamin D3 [Mass/Vol] 72.8 ng/mL Normal 31.0-80.0 [facility] Comment on above: Order Comment: Speci men Type: BLOOD SPECIMEN [facility] Address: [address] [place] [address] Result Comment: Clas sification of 25 [place] Vitamin D status: Deficiency/Insufficiency: < or = 30 ng/ml. Sufficiency/Optimal Levels: 31-80 ng/mL Toxicity: > 100 ng/mL. Test performed by chemiluminescent immunoassay. Performed By: #### 2 132-9 #### [facility] CLIA [id number] [address] [place] [address] [place] CBC W Auto Differential pane l (Bld)on 05-30-2024 Basophils (Bld) [#/Vol] 0.06 10*3/uL Normal <0.11 [facility] Comment on above: Order Comment: Speci men Type: BLOOD SPECIMEN [facility] Address: [address] [place] [address] Performed By: #### 2 132-9 #### [facility] CLIA [id number] [address] [place] [address] [place] Basophils/100 WBC (Bld) 0.8 % Normal [facility] Comment on above: Order Comment: Speci men Type: BLOOD SPECIMEN [facility]: [facility] Address: [address] [place] [address] Performed By: #### 2 132-9 #### [facility] CLIA [id number] [address] [place] [address] [place] Differential cell count method Nom (Bld) Auto Normal [facility] Comment on above: Order Comment: Speci men Type: BLOOD SPECIMEN [facility]ing [facility]: [facility] Address: [address] [place] [address] Performed By: #### 2 132-9 #### [facility] CLIA [id number] [address] [place] [address] [place] Eosinophils (Bld) [#/Vol] 0.26 10*3/uL Normal <0.46 [facility] Comment on above: Order Comment: Speci men Type: BLOOD SPECIMEN [facility]: [facility] Address: [address] [place] [address] Performed By: #### 2 132-9 #### [facility] CLIA [id number] [address] [place] [address] [place] Eosinophils/100 WBC (Bld) 3.4 % Normal [facility] Comment on above: Order Comment: Speci men Type: BLOOD SPECIMEN [facility]ing [facility] Address: [address] [place] [address] Performed By: #### 2 132-9 #### [facility] CLIA [id number] [address] [place] [address] [place] Erythrocyte distribution width (RBC) [Ratio] 12.1 % Normal 11.5-15.0 [facility] Comment on above: Order Comment: Speci men Type: BLOOD SPECIMEN [facility] Address: [address] [place] [address] Performed By: #### 2 132-9 #### [facility] CLIA [id number] [address] [place] [address] [place] Hematocrit (Bld) [Volume fraction] 38.4 % Normal 36.0-46.0 [facility] Comment on above: Order Comment: Speci men Type: BLOOD SPECIMEN [facility] Address: [address] [place] [address] Performed By: #### 2 132-9 #### [facility] CLIA [id number] [address] [place] [address] [place] Hemoglobin (Bld) [Mass/Vol] 12.3 g/dL Normal 11.5-15.5 [facility] Comment on above: Order Comment: Speci men Type: BLOOD SPECIMEN Ordering Facility: [facility] Address: [address] [place] [address] Performed By: #### 2 132-9 #### [facility] CLIA [id number] [address] [place] [address] [place] Immature granulocytes (Bld) [#/Vol] 10*3/uL Normal <0.10 [facility] Comment on above: Order Comment: Speci men Type: BLOOD SPECIMEN Ordering Facility: [facility] Address: [address] [place] [address] Performed By: #### 2 132-9 #### [facility] CLIA [id number] [address] [place] [address] [place] Immature granulocytes/100 WBC (Bld) 0.1 % Normal [facility] Comment on above: Order Comment: Speci men Type: BLOOD SPECIMEN Ordering Facility: [facility] Address: [address] [place] [address] Performed By: #### 2 132-9 #### [facility] CLIA [id number] [address] [place] [address] [place] Lymphocytes (Bld) [#/Vol] 1.71 10*3/uL Normal 1.00-4.00 [facility] Comment on above: Order Comment: Speci men Type: BLOOD SPECIMEN Ordering Facility: [facility] Address: [address] [place] [address] Performed By: #### 2 132-9 #### [facility] CLIA [id number] [address] [place] [address] [place] Lymphocytes/100 WBC (Bld) 22.6 % Normal [facility] Comment on above: Order Comment: Speci men Type: BLOOD SPECIMEN Ordering Facility: [facility] Address: [address] [place] [address] Performed By: #### 2 132-9 #### [facility] CLIA [id number] [address] [place] [address] [place] MCH (RBC) [Entitic mass] 31.1 pg Normal 26.0-34.0 [facility] Comment on above: Order Comment: Speci men Type: BLOOD SPECIMEN Ordering Facility: [facility] Address: [address] [place] [address] Performed By: #### 2 132-9 #### [facility] CLIA [id number] [address] [place] [address] [place] MCHC (RBC) [Mass/Vol] 32.0 g/dL Normal 30.5-36.0 [facility] Comment on above: Order Comment: Speci men Type: BLOOD SPECIMEN Ordering Facility: [facility] Address: [address] [place] [address] Performed By: #### 2 132-9 #### [facility] CLIA [id number] [address] [place] [address] [place] MCV (RBC) [Entitic vol] 97.0 fL Normal 80.0-100.0 [facility] Comment on above: Order Comment: Speci men Type: BLOOD SPECIMEN Ordering Facility: [facility] Address: [address] [place] [address] Performed By: #### 2 132-9 #### [facility] CLIA [id number] [address] [place] [address] [place] Monocytes (Bld) [#/Vol] 0.68 10*3/uL Normal <0.87 [facility] Comment on above: Order Comment: Speci men Type: BLOOD SPECIMEN Ordering Facility: [facility] Address: [address] [place] [address] Performed By: #### 2 132-9 #### [facility] CLIA [id number] [address] [place] [address] [place] Monocytes/100 WBC (Bld) 9.0 % Normal [facility] Comment on above: Order Comment: Speci men Type: BLOOD SPECIMEN Ordering Facility: [facility] Address: [address] [place] [address] Performed By: #### 2 132-9 #### [facility] CLIA [id number] [address] [place] [address] [place] Neutrophils (Bld) [#/Vol] 4.86 10*3/uL Normal 1.45-7.50 [facility] Comment on above: Order Comment: Speci men Type: BLOOD SPECIMEN Ordering Facility: [facility] Address: [address] [place] [address] Performed By: #### 2 132-9 #### [facility] CLIA [id number] [address] [place] [address] [place] Neutrophils/100 WBC (Bld) 64.1 % Normal [facility] Comment on above: Order Comment: Speci men Type: BLOOD SPECIMEN Ordering Facility: [facility] Address: [address] [place] [address] Performed By: #### 2 132-9 #### [facility] CLIA [id number] [address] [place] [address] [place] Nucleated RBC (Bld) [#/Vol] 10*3/uL Normal <0.01 [facility] Comment on above: Order Comment: Speci men Type: BLOOD SPECIMEN Ordering Facility: [facility] Address: [address] [place] [address] Performed By: #### 2 132-9 #### [facility] CLIA [id number] [address] [place] [address] [place] Nucleated RBC/100 WBC (Bld) [Ratio] 0.0 /100 WBC Normal [facility] Comment on above: Order Comment: Speci men Type: BLOOD SPECIMEN Ordering Facility: [facility] Address: [address] [place] [address] Performed By: #### 2 132-9 #### [facility] CLIA [id number] [address] [place] [address] [place] Platelet mean volume (Bld) [Entitic vol] 11.3 fL Normal 9.0-12.7 [facility] Comment on above: Order Comment: Speci men Type: BLOOD SPECIMEN Ordering Facility: [facility] Address: [address] [place] [address] Performed By: #### 2 132-9 #### [facility] CLIA [id number] [address] [place] [address] [place] Platelets (Bld) [#/Vol] 191 10*3/uL Normal 150-400 [facility] Comment on above: Order Comment: Speci men Type: BLOOD SPECIMEN Ordering Facility: [facility] Address: [address] [place] [address] Performed By: #### 2 132-9 #### [facility] CLIA [id number] [address] [place] [address] [place] RBC (Bld) [#/Vol] 3.96 10*6/uL Normal 3.90-5.20 [facility] Comment on above: Order Comment: Speci men Type: BLOOD SPECIMEN Ordering Facility: [facility] Address: [address] [place] [address] Performed By: #### 2 132-9 #### [facility] CLIA [id number] [address] [place] [address] [place] WBC (Bld) [#/Vol] 7.58 10*3/uL Normal 3.70-11.00 [facility] Comment on above: Order Comment: Speci men Type: BLOOD SPECIMEN Ordering Facility: [facility] Address: [address] [place], [place] [address] Performed By: #### 2 132-9 #### [facility] CLIA [id number] [address] [place] [address] [place] Comprehensive metabolic 2000 panelon 05-30-2024 Albumin [Mass/Vol] 4.1 g/dL Normal 3.9-4.9 [facility] Comment on above: Order Comment: Speci men Type: BLOOD SPECIMEN Ordering Facility: [facility] Address: [address] [place] [address] Performed By: #### 2 132-9 #### [facility] CLIA [id number] [address] [place] [address] [place] ALP [Catalytic activity/Vol] 62 U/L Normal 34-123 [facility] Comment on above: Order Comment: Speci men Type: BLOOD SPECIMEN Ordering Facility: [facility] Address: [address] [place] [address] Performed By: #### 2 132-9 #### [facility] CLIA [id number] [address] [place] [address] [place] ALT [Catalytic activity/Vol] 13 U/L Normal 7-38 [facility] Comment on above: Order Comment: Speci men Type: BLOOD SPECIMEN Ordering Facility: [facility] Address: [address] [place] [address] Performed By: #### 2 132-9 #### [facility] CLIA [id number] [address] [place] [address] [place] Anion gap [Moles/Vol] 12 mmol/L Normal 8-15 [facility] Comment on above: Order Comment: Speci men Type: BLOOD SPECIMEN Ordering Facility: [facility] Address: [address] [place], [place] [id number] Performed By: #### 2 132-9 #### [facility] CLIA [id number] [address] [place] [address] [place] AST [Catalytic activity/Vol] 24 U/L Normal 13-35 [facility] Comment on above: Order Comment: Speci men Type: BLOOD SPECIMEN Ordering Facility: [facility] Address: [address] [place] [address] Performed By: #### 2 132-9 #### [facility] CLIA [id number] [address] [place] [address] [place] Bilirubin [Mass/Vol] 0.4 mg/dL Normal 0.2-1.3 [facility] Comment on above: Order Comment: Speci men Type: BLOOD SPECIMEN Ordering Facility: [facility] Address: [address] [place] [address] Performed By: #### 2 132-9 #### [facility] CLIA [id number] [address] [place] [address] [place] Calcium [Mass/Vol] 10.0 mg/dL Normal 8.5-10.2 [facility] Comment on above: Order Comment: Speci men Type: BLOOD SPECIMEN Ordering Facility: [facility] Address: [address] [place] [address] Performed By: #### 2 132-9 #### [facility] CLIA [id number] [address] [place] [address] [place] Chloride [Moles/Vol] 107 mmol/L Normal 98-107 [facility] Comment on above: Order Comment: Speci men Type: BLOOD SPECIMEN Ordering Facility: [facility] Address: [address] [place] [address] Performed By: #### 2 132-9 #### [facility] CLIA [id number] [address] [place] [address] [place] CO2 [Moles/Vol] 23 mmol/L Normal 22-30 [facility] Comment on above: Order Comment: Speci men Type: BLOOD SPECIMEN Ordering Facility: [facility] Address: [address] [place] [address] Performed By: #### 2 132-9 #### [facility] CLIA [id number] [address] [place] [address] [place] Creatinine [Mass/Vol] 1.20 mg/dL High 0.58-0.96 [facility] Comment on above: Order Comment: Johana jarvis Type: BLOOD SPECIMEN Ordering Facility: [facility] Address: [address] [place] [address] Performed By: #### 2 132-9 #### [facility] CLIA [id number] [address] [place] [address] [place] Creatinine and Glomerular filtration rate.predicted panel (S/P/Bld) 48 mL/min/1.73m??? Low >=60 [facility] Comment on above: Order Comment: Johana jarvis Type: BLOOD SPECIMEN Ordering Facility: [facility] Address: [address] [place] [address] Result Comment: Elena mated Glomerular Filtration Rate [...] reflect actual GFR. Performed By: #### 2 132-9 #### [facility] CLIA [id number] [address] [place] [address] [place] Glucose [Mass/Vol] 113 mg/dL High 74-99 [facility] Comment on above: Order Comment: Johana jarvis Type: BLOOD SPECIMEN Ordering Facility: [facility] Address: [address] [place] [address] Result Comment: The [place] Diabetes Association (ADA) provides guidance for cutoff [...] Standards of Medical Care in Diabetes 2016, [place] [employer]. Diabetes Care. 2016.39(Suppl 1). Performed By: #### 2 132-9 #### [facility] CLIA [id number] [address] [place] [address] [place] Potassium [Moles/Vol] 4.7 mmol/L Normal 3.7-5.1 [facility] Comment on above: Order Comment: Speci men Type: BLOOD SPECIMEN Ordering Facility: [facility] Address: [address] [place] [address] Performed By: #### 2 132-9 #### [facility] CLIA [id number] [address] [place] [address] [place] Protein [Mass/Vol] 6.5 g/dL Normal 6.3-8.0 [facility] Comment on above: Order Comment: Speci men Type: BLOOD SPECIMEN Ordering Facility: [facility] Address: [address] [place] [address] Performed By: #### 2 132-9 #### [facility] CLIA [id number] [address] [place] [address] [place] Sodium [Moles/Vol] 142 mmol/L Normal 136-144 [facility] Comment on above: Order Comment: Speci men Type: BLOOD SPECIMEN Ordering Facility: [facility] Address: [address] [place] [address] Performed By: #### 2 132-9 #### [facility] CLIA [id number] [address] [place] [address] [place] Urea nitrogen [Mass/Vol] 38 mg/dL High 7-21 [facility] Comment on above: Order Comment: Speci men Type: BLOOD SPECIMEN Ordering Facility: [facility] Address: [address] [place] [address] Performed By: #### 2 132-9 #### [facility] CLIA [id number] [address] [place] [address] [place] HbA1c (Bld)on 05-30-2024 Average glucose Estimated from glycated hemoglobin (Bld) [Mass/Vol] 131 mg/dL Normal [facility] Comment on above: Order Comment: Johana jarvis Type: BLOOD SPECIMEN Ordering Facility: [facility] Address: [address] [place] [address] Result Comment: eAG: (Estimated average glucose) is a calculated value from HgbA1c and is premium representative of the average blood glucose level in the last 2-3 month period. Performed By: #### 2 132-9 #### [facility] CLIA [id number] [address] [place] [address] [place] HbA1c (Bld) [Mass fraction] 6.2 % High 4.3-5.6 [facility] Comment on above: Order Comment: Johana jarvis Type: BLOOD SPECIMEN Ordering Facility: [facility] Address: [address] [place] [address] Result Comment: Page [place] Diabetes Association guidelines indicate that patients with HgbA1c in the range 5.7-6.4% are at increased risk for development of diabetes, and intervention by lifestyle modification may be beneficial. HgbA1c greater or equal to 6.5% is considered diagnostic of diabetes. Performed By: #### 2 132-9 #### [facility] CLIA [id number] [address] [place] [address] [place] Lipid 1996 panelon 4 Cholesterol [Mass/Vol] 151 mg/dL Normal <200 [facility] Comment on above: Order Comment: Johana jarvis Type: BLOOD SPECIMEN Ordering Facility: [facility] Address: [address] [place] [address] Result Comment: <200 mg/dL, Desirable 200-239 mg/dL, Borderline high >239 mg/dL, High Performed By: #### 2 132-9 #### [facility] CLIA [id number] [address] [place] [address] STATES [place] [facility] Cholesterol in HDL [Mass/Vol] 47 mg/dL Normal >39 [facility] Comment on above: Order Comment: Johana jarvis Type: BLOOD SPECIMEN Ordering Facility: [facility] Address: [address] [place] [address] Result Comment: 40-5 9 mg/dL, Acceptable >59 mg/dL, High: Negative risk factor for coronary heart disease <40 mg/dL, Low: Positive risk factor for coronary heart disease Performed By: #### 2 132-9 #### [facility] CLIA [id number] [address] [place] [address] Cholesterol in LDL [Mass/Vol] 71 mg/dL Normal <100 [facility] Comment on above: Order Comment: Johana jarvis Type: BLOOD SPECIMEN Ordering Facility: [facility] Address: [address] [place] [address] Result Comment: <100 mg/dL, Optimal 100-129 mg/dL, Near optimal/above optimal 130-159 mg/dL, Borderline high 160-189 mg/dL, High >189 mg/dL, Very high Secondary prevention optimal LDL Cholesterol levels are recommended to be < 70 mg/dL Performed By: #### 2 132-9 #### [facility] CLIA [id number] [address] [place] [address] STATES OF [facility] Cholesterol in LDL/Cholesterol in HDL [Mass ratio] 1.51 {ratio} Normal <2.54 [facility] Comment on above: Order Comment: Johana matheus Type: BLOOD SPECIMEN Ordering Facility: [facility] Address: [address] [place] [address] Result Comment: Vlad oakes: 1. National Cholesterol Education Program ATP III Guideline At-A-Glance Quick Desk Reference: National Heart, Lung, and Blood [place]. National Institutes of Health. 2001: NIH Publication No. 01-3305. 2. An International Atherosclerosis Society position paper: global recommendations for the management of dyslipidemia: executive summary, Atherosclerosis. 2014: 232(2):410-413. Performed By: #### 2 132-9 #### [facility] CLIA [id number] [address] [place] [address] [place] Cholesterol in VLDL [Mass/Vol] 33 mg/dL High <30 [facility] Comment on above: Order Comment: Speci men Type: BLOOD SPECIMEN Ordering Facility: [facility] Address: [address] [place] [address] Performed By: #### 2 132-9 #### [facility] CLIA [id number] [address] [place] [address] [place] Cholesterol non HDL [Mass/Vol] 104 mg/dL Normal <130 [facility] Comment on above: Order Comment: Elizabethi men Type: BLOOD SPECIMEN Ordering Facility: [facility] Address: [address] [place] [address] Result Comment: <130 mg/dL, Optimal 130-159 mg/dL, Near optimal/above optimal 160-189 mg/dL, Borderline high 190-219 mg/dL, High >219 mg/dL, Very high Secondary prevention optimal non HDL Cholesterol levels are recommended to be <100 mg/dL Performed By: #### 2 132-9 #### [facility] CLIA [id number] [address] [place] [address] [place] Cholesterol.total/Chol esterol in HDL [Mass ratio] 3.21 {ratio} Normal <5.10 [facility] Comment on above: Order Comment: Speci men Type: BLOOD SPECIMEN Ordering Facility: [facility] Address: [address] [place] [address] Performed By: #### 2 132-9 #### [facility] CLIA [id number] [address] [place] [address] [place] FASTING TIME 13 hrs Normal [facility] Comment on above: Order Comment: Speci men Type: BLOOD SPECIMEN Ordering Facility: [facility] Address: [address] [place] [address] Performed By: #### 2 132-9 #### [facility] CLIA [id number] [address] [place] [address] [place] Triglyceride [Mass/Vol] 165 mg/dL High <150 [facility] Comment on above: Order Comment: Speci men Type: BLOOD SPECIMEN Ordering Facility: [facility] Address: [address] [place] [address] Result Comment: <150 mg/dL, Normal 150-199 mg/dL, Borderline high 200-499 mg/dL, High >499 mg/dL, Very high Performed By: #### 2 132-9 #### [facility] CLIA [id number] [address] [place] [address] [place] T3Free SerPl-mCncon 05-30-20 24 Free T3 [Mass/Vol] 3.7 pg/mL Normal 2.3-4.1 [facility] Comment on above: Order Comment: Speci men Type: BLOOD SPECIMEN Ordering Facility: [facility] Address: [address] [place] [address] Performed By: #### 2 132-9 #### [facility] CLIA [id number] [address] [place] [address] [place] T4 Free SerPl-mCncon 024 Free T4 [Mass/Vol] 2.0 ng/dL High 0.9-1.7 [facility] Comment on above: Order Comment: Speci men Type: BLOOD SPECIMENOrdering Facility: [facility] Address: [address] [place] [address] Performed By: #### 3 024-7, 78646-3, 3051-0, 09549-5 ####[facility] [id number] [place] [address] [place] TSH SerPl-aCncon 05-30-2024 TSH Qn 0.007 m[IU]/L Low 0.270-4.200 [facility] Comment on above: Order Comment: Speci men Type: BLOOD SPECIMEN Ordering Facility: [facility] Address: [address] [place] [address] Performed By: #### 2 132-9 #### [facility] CLIA [id number] [address] [place] [address] OF [facility] Gabriel 05-19-2024 MARKN Telephone (FAMWS) -------- GELY NEWMAN ([id number]) 1950 F Date Time Provider Department 05/19/24 [facility] During your visit today, we recorded the following information about you: Meagan Martinez MA 05/19/2024 9:19 AM Signed Pt sent in [employer] message asking for lab orders for her [...] [R53.83] Order(s):LIPID PANEL BASIC [SQLIPB] Order #: [id number] FUTURE COMPREHENSIVE METABOLIC PANEL [SQCMP] Order #: [id number] FUTURE THYROID STIMULATING HORMONE [SQTSH] Order #: [id number] FUTURE T3, FREE [SQFREET3] Order #: [id number] FUTURE T4 FREE/FREE THYROXINE [SQFT4] Order #: [id number] FUTURE VITAMIN D 25 HYDROXY [SQVITD] Order #: [id number] FUTURE COMPLETE BLOOD COUNT AND DIFFERENTIAL [SQCBCDIF] Order #: [id number] FUTURE HEMOGLOBIN A1C [YSTKJ0V] Order #: [id number] FUTURE Prescriptions as of 05/19/2024 - glimepiride [...] 1 tablet by mouth once daily. - Asjwkvti-Rilv-Fsa-Folic Acid 18-0.4 mg tab Take 1 tablet [...] Anemia [D (more content not included)... Normal [facility] XR Lumbar spine 3 Viewson * [...] calcifications. Mild levoscoliosis DIVISION OF RADIOLOGY Provider, [facility] - 12/10/2023 * * *Final Report* * [...] DESCRIBED. PROGRESSION PRIOR STUDY. NO ACUTE ABNORMALITY Marine Machinist: [facility] Transcribe Date/Time: Dec 10 2023 1:03P Dictated by : CHASE SUE MD This examination was interpreted and the report reviewed and electronically signed by: CHASE SUE MD on Dec 10 2023 1:17PM EST [facility] Radiology Study observation (narrative) [facility] XR Lumbar spine 3 ViewsOrder ed By: [facility] Provider on 12-10-2023 [facility] Anaerobic cultureOrdered By: Rishi Vasquez on 08-16-2023 Bacteria identified Anaer cx Nom (Unsp spec) No anaerobic bacteria isolated. [facility] Bacteria identified Cx Nom ( Wound)Ordered By: Rishi Vasquez on 08-16-2023 Wound Culture Meth. resistant Stap h. aureus [facility] Gram stain for investigation of transfusion reactionOrdered By: Rishi Vasquez on 08-16-2023 Microscopic observation Gram stain Nom (Unsp spec) [facility] Anaerobic cultureOrdered By: Rishi Vasquez on 07-27-2023 Bacteria identified Anaer cx Nom (Unsp spec) No anaerobic bacteria isolated. [facility] Bacteria identified Cx Nom ( Wound)Ordered By: Rishi Vasquez on 07-27-2023 Wound Culture Meth. resistant Stap h. aureus [facility] Gram stain for investigation of transfusion reactionOrdered By: Rishi Vasquez on 07-27-2023 Microscopic observation Gram stain Nom (Unsp spec) [facility] Anaerobic cultureOrdered By: Rishi Vasquez on 07-26-2023 Bacteria identified Anaer cx Nom (Unsp spec) No anaerobic bacteria isolated. [facility] Bacteria identified Cx Nom ( Wound)Ordered By: Rishi Vasquez on 07-26-2023 Wound Culture Meth. resistant Stap h. aureus [facility] Gram stain for investigation of transfusion reactionOrdered By: Rishi Vasquez on 07-26-2023 Microscopic observation Gram stain Nom (Unsp spec) [facility] ALEJANDRO DIAG W BEN RIGHTon 06-20 [facility] US BREAST LTD RIGHTon 2022 [facility] UA DIP, URINE (POC)on 2022 BILIRUBIN UA (POCT) Negative Negative [facility] CLARITY UA (POCT) [facility] COLOR UA (POCT) Yellow [facility] GLUCOSE UA (POCT) Negative Negative mg/dL [facility] HEMOGLOBIN/BLOOD UA (POCT) Trace-intact Abnormal Negative [facility] KETONE UA (POCT) Negative Negative mg/dL [facility] LEUKOCYTES UA (POCT) Large Abnormal Negative [facility] NITRITE UA (POCT) Positive Abnormal Negative [facility] PH UA (POCT) 7.0 4.5 - 8.0 [facility] Protein Ql (U) 30 mg/dL Abnormal Negative mg/dL [facility] SPECIFIC GRAVITY UA (POCT) 1.015 1.005 - 1.030 [facility] UROBILINOGEN UA (POCT) 0.2 E.U./dL Jacki l E.U./dL [facility] ALEJANDRO SCREENINGon 05-29-2023 [facility] No Panel Informationon 12-29 [facility] US THYROID/PARATHYROIDon [facility] UA DIP, URINE (POC)on 2021 BILIRUBIN UA (POCT) Negative Negative [facility] CLARITY UA (POCT) [facility] COLOR UA (POCT) Yellow [facility] GLUCOSE UA (POCT) 100 mg/dL Abnormal Negative mg/dL [facility] HEMOGLOBIN/BLOOD UA (POCT) Small Abnormal Negative [facility] KETONE UA (POCT) Negative Negative mg/dL [facility] LEUKOCYTES UA (POCT) Moderate Abnormal Negative [facility] NITRITE UA (POCT) Negative Negative [facility] PH UA (POCT) 7.0 4.5 - 8.0 [facility] Protein Ql (U) 100 mg/dL Abnormal Negative mg/dL [facility] SPECIFIC GRAVITY UA (POCT) 1.020 1.005 - 1.030 [facility] UROBILINOGEN UA (POCT) 0.2 E.U./dL Jacki l E.U./dL [facility] No Panel Informationon 08-15 Radiology Study observation (narrative) [facility] XR Sternum Lateral and right anterior obliqueon 08-15-2022 IMPRESSION: No acute osseous abnormality Marine Machinist: [facility] Transcribe Date/Time: Aug 15 2022 1:22P Dictated by : MAURICIO REYNOLDS MD This examination was interpreted and the report reviewed and electronically signed by: MAURICIO REYNOLDS MD on Aug 15 2022 1:23PM [facility] DIVISION OF RADIOLOGY * * *Final Report* [...] destructive osseous lesion. DIVISION OF RADIOLOGY Provider, [facility] - 08/15/2022 * * *Final Report* [...] lesion. IMPRESSION IMPRESSION: No acute osseous abnormality Marine Machinist: [facility] Transcribe Date/Time: Aug 15 2022 1:22P Dictated by : MAURICIO REYNOLDS MD This examination was interpreted and the report reviewed and electronically signed by: MAURICIO REYNOLDS MD on Aug 15 2022 1:23PM EST [facility] XR Sternum Lateral and right anterior obliqueOrdered By: [facility] Provider on 08-15-2022 [facility] XR Wrist - right 4 Viewson 0 08-15-2022 IMPRESSION: No acute fracture. Degenerative disease of the right wrist. Marine Machinist: [facility] Transcribe Date/Time: Aug 15 2022 1:20P Dictated by : MAURICIO REYNOLDS MD This examination was interpreted and the report reviewed and electronically signed by: MAURICIO REYNOLDS MD on Aug 15 2022 1:21PM [facility] DIVISION OF RADIOLOGY * * *Final Report* [...] calcifications are noted. DIVISION OF RADIOLOGY Provider, Karuna Nicko [facility] - 08/15/2022 * * *Final Report* * [...] fracture. Degenerative disease of the right wrist. Marine Machinist: [email or web address] Transcribe Date/Time: Aug 15 2022 1:20P Dictated by : MAURICIO REYNOLDS MD This examination was interpreted and the report reviewed and electronically signed by: MAURICIO REYNOLDS MD on Aug 15 2022 1:21PM EST [facility] XR SHOULDER GENERAL 3V OR MO RE AP/TRUE AP/OTHER RIGHTon 06-17-2022 [facility] [facility] X[facility] Shoulder - right 3 Viewso n 06-17-2022 IMPRESSION: 1. No acute fracture or dislocation. 2. Radiographic changes which can be seen in association with rotator cuff tendonopathy. Marine Machinist: PSCB Transcribe Date/Time: Jun 17 2022 9:43A Dictated by : AIYANA GOMEZ MD This examination was interpreted and the report reviewed and electronically signed by: AIYANA GOMEZ MD on Jun 17 2022 9:45AM EST ZZZ_DO_NOT_U SE_DIVISION OF RADIOLOGY * * *Final Report* * [...] relevant examinations available for comparison within the [facility]. RESULT: 3 views of the [...] is clear. ZZZ_DO_NOT_U SE_DIVISION OF RADIOLOGY Provider, [facility] - 06/17/2022 * * *Final Report* * [...] relevant examinations available for comparison within the [facility]. RESULT: 3 views of the [...] seen in association with rotator cuff tendonopathy. Marine Machinist: PSCB Transcribe Date/Time: Jun 17 2022 9:43A Dictated by : AIYANA GOMEZ MD This examination was interpreted and the report reviewed and electronically signed by: AIYANA GOMEZ MD on Jun 17 2022 9:45AM EST [facility] Radiology Study observation (narrative) [facility] XR Shoulder - right 3 ViewsO rdered By: [facility] Provider on 06-17-2022 [facility] ALEJANDRO SCREENINGon 06-05-2022 [facility] HEMOGLOBIN A1C (POC)on 05-31 HbA1c (Bld) [Mass fraction] 6.2 % 4.2 - 5.6 % [facility] Renal function 2000 panelon 03-07-2022 Albumin [Mass/Vol] 4.1 g/dL 3.9 - 4.9 g/dL [facility] Anion gap [Moles/Vol] 14 mmol/L 9 - 18 mmol/L [facility] Calcium [Mass/Vol] 9.9 mg/dL 8.5 - 10. 2 mg/dL [facility] Chloride [Moles/Vol] 105 mmol/L 97 - 10 5 mmol/L [facility] CO2 [Moles/Vol] 23 mmol/L 22 - 30 mmol/L [facility] Creatinine [Mass/Vol] 1.29 mg/dL High 0.58 - 0.96 mg/dL [facility] Estimated Glomerular Filtration Rate 45 mL/min/1.73m Low >=60 mL/min/1.73 m [facility] Glucose [Mass/Vol] 167 mg/dL High 74 - 99 mg/dL [facility] Phosphate [Mass/Vol] 4.0 mg/dL 2.7 - 4 .8 mg/dL [facility] Potassium [Moles/Vol] 4.1 mmol/L 3.7 - 5.1 mmol/L [facility] Sodium [Moles/Vol] 142 mmol/L 136 - 144 mmol/L [facility] Urea nitrogen [Mass/Vol] 42 mg/dL High 7 - 21 mg/dL [facility] Glucose Glucometer (BldC) [M ass/Vol]on 03-04-2022 Glucose [Mass/Vol] 163 mg/dL 74-106 [facility] Work Phone: Comment on above: MANAGEMENT OF PATIEN T CARE PER NURSING PROTOCOL Office Visit: Thyroid Nodule son 08-30-2017 Dietary management education, guidance, and counseling (procedure) yes Invalid Interpretation Code [facility] Work Phone: Documentation of current medications (procedure) Done Invalid Interpretation Code [facility] Work Phone: Fall risk assessment No Invalid Interpretation Code [facility] Work Phone: Tobacco smoking status ORIS Never Invalid Interpretation Code [facility] Work Phone: Tobacco use [facility] Former smoker Invalid Interpretation Code [facility] Work Phone: Office Visiton 06-11-2017 Dietary management education, guidance, and counseling (procedure) yes Invalid Interpretation Code [facility] Work Phone: [phone] Documentation of current medications (procedure) Done Invalid Interpretation Code [facility] Work Phone: [phone] Protein mass conc Done [facility] Work Phone: [phone] Clinical Lists Update: Prelo inbound telemarketer 05-30-2017 Left ventricular Ejection fraction 60 % Invalid Interpretation Code [facility] Work Phone: [phone] Office Visit: 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 phalanxon 05-02-2017 Dietary management education, guidance, and counseling (procedure) yes Invalid Interpretation Code [facility] Work Phone: [phone] Documentation of current medications (procedure) Done Invalid Interpretation Code [facility] Work Phone: [phone] Fall risk assessment No Invalid Interpretation Code [facility] Work Phone: Protein mass conc Done [facility] Work Phone: Tobacco smoking status NHIS Never Invalid Interpretation Code [facility] Work Phone: Tobacco smoking status ORIS Former smoker [facility] Work Phone: Tobacco use [facility] Former smoker Invalid Interpretation Code [facility] Work Phone: Office Visiton 04-23-2017 Protein mass conc Done [facility] Work Phone: Lab Report: CRPon 02-21-2017 CRP [Mass/Vol] mg/L Invalid Interpretation Code 0.0-3.0 [facility] Work Phone: Lab Report: Erythrocyte Sed Rateon 02-21-2017 ESR (Bld) [Velocity] 40 mm/h High 0-[address] [facility] Work Phone: Lab Report: Thyroid Peroxida se ABon 02-08-2017 TPO Ab JOSEPH Qn 13 Invalid Interpretation Code 0-34 [facility] Work Phone: Lab Report: Free T3on 2016 Free T3 [Mass/Vol] 3.5 pg/mL Invalid Interpretation Code 2.18-3.98 [facility] Work Phone: Lab Report: T4 Free Directon 02-07-2017 Free T4 [Mass/Vol] 1.35 ng/dL Invalid Interpretation Code 0.76-1.46 [facility] Work Phone: Lab Report: Thyroid Stim Hor oh (TSH)on 02-07-2017 TSH Qn < 0.01 uIU/mL Low 0.358-3.74 [facility] Work Phone: Office Visit: Thyroid evalua tionon 02-06-2017 Adolescent depression screening assessment Adolescent depression screening assessment Invalid Interpretation Code [facility] Work Phone: Adult depression screening assessment Adolescent depression screening assessment Invalid Interpretation Code [facility] Work Phone: Fall risk assessment No [facility] Work Phone: Tobacco smoking status NHIS Never [facility] Work Phone: Tobacco smoking status NHIS Former smoker [facility] Work Phone: Microbiology: Culture, Wound on 01-28-2017 CUW Trimethoprim/Sulfame tho $ <=20 S Invalid Interpretation Code [facility] Work Phone: wound culture Trimethoprim/Sulfame tho $ <=20 S Invalid Interpretation Code [facility] Work Phone: [phone] Clinical Lists Update: Prelo inbound telemarketer 01-15-2017 Cholesterol 164 mg/dL Invalid Interpretation Code [facility] Work Phone: [phone] Cholesterol to HDL Ratio 2.98 {ratio} Invalid Interpretation Code [facility] Work Phone: [phone] HDL Cholesterol 55 mg/dL Low [facility] Work Phone: [phone] LDL Cholesterol 67 mg/dL Invalid Interpretation Code [facility] Work Phone: [phone] LDL/HDL ratio, serum 1.22 Invalid Interpretation Code [facility] Work Phone: [phone] Triglyceride 210 mg/dL High [facility] Work Phone: [phone] low density lipoproteins 42 mg/dL High [facility] Work Phone: [phone] Lab Report: Basic Metabolic Profile (BMP)on 01-12-2017 Anion gap 8 mmol/L Invalid Interpretation Code 5-15 [facility] Work Phone: [phone] Anion gap [Moles/Vol] 8 mmol/L 5-15 [facility] Work Phone: [phone] Calcium [Mass/Vol] 9.0 mg/dL Invalid Interpretation Code 8.5-10.1 [facility] Work Phone: [phone] Chloride [Moles/Vol] 105 mmol/L Invalid Interpretation Code 98-107 [facility] Work Phone: [phone] CO2 26.0 mmol/L Invalid Interpretation Code 21.0-32.0 [facility] Work Phone: [phone] CO2 (BldV) [Partial pressure] 26.0 mmol/L 21.0-32.0 [facility] Work Phone: [phone] Creatinine [Mass/Vol] 1.63 mg/dL High 0.55-1.02 [facility] Work Phone: [phone] eGFR (non-black) 41 mL/min/{1.73_m2} Low >60 [facility] Work Phone: [phone] GFR - AA 41 mL/min Low >60 [facility] Work Phone: GFR/1.73 sq M predicted among non-blacks MDRD (S/P/Bld) [Vol rate/Area] 34 mL/min/{1.73_m2} Low >60 [facility] Work Phone: Glucose 210 mg/dL High 70-110 [facility] Work Phone: Glucose [Mass/Vol] 210 mg/dL High 70-110 [facility] Work Phone: Potassium [Moles/Vol] 4.6 mmol/L Invalid Interpretation Code 3.5-5.1 [facility] Work Phone: Sodium [Moles/Vol] 139 mmol/L Invalid Interpretation Code 136-145 [facility] Work Phone: Urea nitrogen [Mass/Vol] 53 mg/dL High 7-18 [facility] Work Phone: Urea nitrogen/Creatinine [Mass ratio] 32.5 RATIO High 10-20 [facility] Work Phone: Replaced Document: (P) CBC W /Diff, Automatedon 01-12-2017 Absolute Neut 3.7 X10 3/UL Invalid Interpretation Code 2.0-7.7 [facility] Work Phone: Basophils/100 leukocytes 1.2 % High 0-1 [facility] Work Phone: Basophils/100 WBC (Bld) 1.2 % High 0-1 [facility] Work Phone: Eosinophils/100 leukocytes 8.4 % High 0-5 [facility] Work Phone: Eosinophils/100 WBC (Bld) 8.4 % High 0-5 [facility] Work Phone: [phone] Erythrocyte distribution width (RBC) [Ratio] 44.7 fL High 35.1-43.9 [facility] Work Phone: [phone] Erythrocyte distribution width (RBC) [Ratio] 13.9 % 11.6-14.6 [facility] Work Phone: Erythrocytes (RBC) 4.04 10*6/uL Low 4.2-5.[address] [facility] Work Phone: [phone] Hematocrit (Bld) [Volume fraction] 36.0 % Low 37-47 [facility] Work Phone: Hematocrit (HCT) 36.0 % Low 37-47 [facility] Work Phone: [phone] Hemoglobin (Bld) [Mass/Vol] 11.6 g/dL Low 12.0-15.0 [facility] Work Phone: Immature granulocytes (Bld) [#/Vol] 0.200 % 0.0-0.9 [facility] Work Phone: [phone] immature granulocytes, percentage of total cells, blood 0.200 % Invalid Interpretation Code 0.0-0.9 [facility] Work Phone: [phone] Immature granulocytes/100 WBC (Bld) 0.200 % Invalid Interpretation Code 0.0-0.9 [facility] Work Phone: Lymphocytes 1.53 X10 3/UL Invalid Interpretation Code 0.83-4.51 [facility] Work Phone: [phone] Lymphocytes (Bld) [#/Vol] 1.53 X10 3/UL 0.83-4.51 [facility] Work Phone: Lymphocytes/100 leukocytes 23.3 % Invalid Interpretation Code 19-41 [facility] Work Phone: [phone] Lymphocytes/100 WBC (Bld) 23.3 % 19-41 [facility] Work Phone: MCH 28.7 pg Invalid Interpretation Code 27.0-32.0 [facility] Work Phone: [phone] MCH (RBC) [Entitic mass] 28.7 pg 27.0-32.0 [facility] Work Phone: MCHC 32.2 G/GL Invalid Interpretation Code 32-36 [facility] Work Phone: [phone] MCHC (RBC) [Mass/Vol] 32.2 G/GL 32-36 [facility] Work Phone: MCV 89.1 fL Invalid Interpretation Code 81-99 [facility] Work Phone: MCV (RBC) [Entitic vol] 89.1 fL 81-99 [facility] Work Phone: Monocytes/100 leukocytes 10.5 % High 0-10 [facility] Work Phone: Monocytes/100 WBC (Bld) 10.5 % High 0-10 [facility] Work Phone: neutrophil count, blood 3.7 X10 3/UL Invalid Interpretation Code 2.0-7.7 [facility] Work Phone: Neutrophils (Bld) [#/Vol] 3.7 X10 3/UL 2.0-7.7 [facility] Work Phone: Neutrophils/100 leukocytes 56.4 % Invalid Interpretation Code 47-70 [facility] Work Phone: Neutrophils/100 WBC (Bld) 56.4 % 47-70 [facility] Work Phone: Platelet mean volume (Bld) [Entitic vol] 10.4 fL 6.2-12.0 [facility] Work Phone: Platelets 239 10*3/mm3 Invalid Interpretation Code 150-450 [facility] Work Phone: Platelets (Bld) [#/Vol] 239 10*3/mm3 150-450 [facility] Work Phone: PMV by Stevo 10.4 fL Invalid Interpretation Code 6.2-12.0 [facility] Work Phone: RBC (Bld) [#/Vol] 4.04 10*6/uL Low 4.2-5.4 [facility] Work Phone: RDW SD 44.7 fL High 35.1-43.9 [facility] Work Phone: RDW-CA 13.9 % Invalid Interpretation Code 11.6-14.6 [facility] Work Phone: [phone] red blood cell distribution width, size density 44.7 fL High 35.1-43.9 [facility] Work Phone: [phone] WBC (Bld) [#/Vol] 6.6 10*3/uL 4.4-11.0 [facility] Work Phone: [phone] WBC (Leukocytes) 6.6 10*3/uL Invalid Interpretation Code 4.4-11.0 [facility] Work Phone: [phone] Lab Report: MRSA Wound DNA b y PCRon 01-04-2017 GE use only - for [employer] import when terms are not otherwise specified Positive High Negative [facility] Work Phone: [phone] INR Coag (Bld) [Relative time] Positive High Negative [facility] Work Phone: SA RESULT Positive High Negative [facility] Work Phone: Office Visit: Thyroid evalua tionon 12-20-2016 Colonoscopy (procedure) Colonoscopy (procedure) Invalid Interpretation Code [facility] Work Phone: [phone] Protein mass conc Colonoscopy (procedure) [facility] Work Phone: Lab Report: CBC W/Diff, Auto matedon 12-13-2016 Anisocytosis presence RARE Invalid Interpretation Code [facility] Work Phone: [phone] Anisocytosis Ql (Bld) RARE [facility] Work Phone: complete blood count (CBC), comments . Invalid Interpretation Code [facility] Work Phone: [phone] Pathologist Cyto stain Nom (Cvx/Vag) [ID] May foll Invalid Interpretation Code [facility] Work Phone: [phone] Platelets LM Ql (Bld) ADEQUATE Invalid Interpretation Code ADEQ [facility] Work Phone: [phone] SMEAR COMMENT . Invalid Interpretation Code [facility] Work Phone: Lab Report: IgG Subclasseson 12-02-2016 IgG subclass 1 (S) [Mass/Vol] 392 mg/dL Low 422-1292 [facility] Work Phone: IgG subclass 2 (S) [Mass/Vol] 216 mg/dL Invalid Interpretation Code 117-747 [facility] Work Phone: IgG subclass 3 (S) [Mass/Vol] 42 mg/dL Invalid Interpretation Code 41-129 [facility] Work Phone: IgG subclass 4 (S) [Mass/Vol] 9 mg/dL Invalid Interpretation Code 1-291 [facility] Work Phone: Office Visit: day 7 of Cefta raline (mrsa, enterobacter, actinomyces)on 11-22-2016 Adult depression screening assessment Adult depression screening assessment Invalid Interpretation Code [facility] Work Phone: [phone] PHQ-9 quick depression assessment panel [Reported.PHQ] Adult depression screening assessment [facility] Work Phone: Lab Report: GEGE + Protein El ect, Serumon 11-21-2016 Albumin [Mass/Vol] 2.5 g/dL Low 2.9-4.4 [facility] Work Phone: Albumin/Globulin [Mass ratio] 0.9 {ratio} Invalid Interpretation Code 0.7-1.7 [facility] Work Phone: Alpha 2 globulin Elph [Mass/Vol] 1.1 g/dL High 0.4-1.0 [facility] Work Phone: [id number] 0.3 g/dL Invalid Interpretation Code 0.0-0.4 [facility] Work Phone: BETA GLOBULIN 0.9 g/dL Invalid Interpretation Code 0.7-1.3 [facility] Work Phone: Gamma globulin Elph [Mass/Vol] 600 mg/dL Invalid Interpretation Code Units converted. See lab report for original value. [facility] Work Phone: Globulin 2.9 g/dL Invalid Interpretation Code 2.2-3.9 [facility] Work Phone: [phone] Globulin 0.9 g/dL Invalid Interpretation Code 0.7-1.3 [facility] Work Phone: [phone] Globulin 0.3 g/dL Invalid Interpretation Code 0.0-0.4 [facility] Work Phone: [phone] Globulin (S) [Mass/Vol] 2.9 g/dL 2.2-3.9 [facility] Work Phone: GEGE RESULT,S Comment Invalid Interpretation Code . [facility] Work Phone: IgA [Mass/Vol] 249 mg/dL Invalid Interpretation Code 87-352 [facility] Work Phone: IgG [Mass/Vol] 584 mg/dL Low 700-1600 [facility] Work Phone: IgM [Mass/Vol] 40 mg/dL Invalid Interpretation Code 26-217 [facility] Work Phone: lab comments Comment Invalid Interpretation Code . [facility] Work Phone: [phone] M-SPIKE . g/dL Invalid Interpretation Code [facility] Work Phone: MONOCLONAL PROTEIN . g/dL Invalid Interpretation Code [facility] Work Phone: [phone] NOTE: Comment Invalid Interpretation Code . [facility] Work Phone: Protein [Mass/Vol] 5.4 g/dL Low 6.0-8.5 [facility] Work Phone: [phone] Protein mass conc Comment . [facility] Work Phone: serum protein electrophoresis, interpretation/comment Comment Invalid Interpretation Code . [facility] Work Phone: [phone] Lab Report: Bedside Glucoseo n 11-18-2016 Glucose 352 mg/dL High 70-110 [facility] Work Phone: [phone] Glucose [Mass/Vol] 352 mg/dL High 70-110 [facility] Work Phone: Microbiology: Fungus Stainon 11-18-2016 fungus stain . Invalid Interpretation Code [facility] Work Phone: [phone] FUNST . Invalid Interpretation Code [facility] Work Phone: Lab Report: Basic Metabolic Profile (BMP)on 11-17-2016 Creatinine 45.87 mL/min Invalid Interpretation Code [facility] Work Phone: [phone] Lab Report: Iron+Iron Bindin g Capacityon 11-17-2016 Iron [Mass/Vol] 32 ug/dL Low 50-170 [facility] Work Phone: [phone] Iron binding capacity [Mass/Vol] 223 ug/dL Low 250-450 [facility] Work Phone: Iron saturation [Mass fraction] 14.3 % Low 15.0-55.0 [facility] Work Phone: Lab Report: Hemoglobin A1con 11-16-2016 HbA1c (Bld) [Mass fraction] 5.3 % Invalid Interpretation Code 4.2-6.3 [facility] Work Phone: Lab Report: Comprehensive Me tabolic Profilon 11-14-2016 Albumin [Mass/Vol] 2.9 g/dL Low 3.4-5.0 [facility] Work Phone: Alkaline phosphatase (ALP) 56 U/L Invalid Interpretation Code 45-117 [facility] Work Phone: [phone] ALP (Bld) [Catalytic activity/Vol] 56 U/L 45-117 [facility] Work Phone: [phone] ALT [Catalytic activity/Vol] 14 U/L Invalid Interpretation Code 12-78 [facility] Work Phone: [phone] AST [Catalytic activity/Vol] 13 U/L Low 15-37 [facility] Work Phone: [phone] Bilirubin [Mass/Vol] 0.20 mg/dL Invalid Interpretation Code 0.20-1.00 [facility] Work Phone: Protein [Mass/Vol] 6.9 g/dL Invalid Interpretation Code 6.4-8.2 [facility] Work Phone: Lab Report: Prealbuminon Prealbumin 12.9 mg/dL Low 20.0-40.0 [facility] Work Phone: Prealbumin Elph [Mass/Vol] 12.9 mg/dL Low 20.0-40.0 [facility] Work Phone: Lab Report: Vancomycin, Trou gh Levelon 10-09-2016 Vancomycin trough [Mass/Vol] 18.7 ug/mL High 5.0-15.0 [facility] Work Phone: Lab Report: Magnesiumon 08-19 Magnesium [Mass/Vol] 2.3 mg/dL Invalid Interpretation Code 1.8-2.4 [facility] Work Phone: Lab Report: Phosphoruson PHOS 3.8 mg/dL Invalid Interpretation Code 2.5-4.9 [facility] Work Phone: Phosphate [Mass/Vol] 3.8 mg/dL 2.5-4.[address] [facility] Work Phone: Phosphorus Concentratation-Random 3.8 mg/dL Invalid Interpretation Code 2.5-4.9 [facility] Work Phone: Lab Report: Liver Profileon 09-01-2016 Bilirubin.direct [Mass/Vol] 0.08 mg/dL Invalid Interpretation Code 0.00-0.30 [facility] Work Phone: Lab Report: Partial Thrombop last Timeon 09-01-2016 aPTT Coag (Bld) [Time] 46.2 s High 24.1-36.2 [facility] Work Phone: Lab Report: Prothrombin Time w/INRon 09-01-2016 INR Coag (PPP) [Relative time] 1.2 {INR} Invalid Interpretation Code [facility] Work Phone: INR in blood by coagulation 1.2 {INR} Invalid Interpretation Code [facility] Work Phone: [phone] PT Coag (PPP) [Time] 14.8 s Invalid Interpretation Code 11.7-14.9 [facility] Work Phone: Office Visit: Thyroid evalua tionon 04-19-2016 MG Breast screening Normal Bilateral Invalid Interpretation Code [facility] Work Phone: Clinical Lists Update: Prelo inbound telemarketer 06-23-2015 PT Coag (PPP) [Time] 9.1 s Invalid Interpretation Code [facility] Work Phone: Office Visiton 05-25-2015 Protein mass conc yes [facility] Work Phone: Smoking cessation education (procedure) yes Invalid Interpretation Code [facility] Work Phone: Replaced Document: Nona Cheng CG Observationson 05-25-2015 EKG QRS axis -36 deg Invalid Interpretation Code [facility] Work Phone: [phone] electrocardiogram interpretation Sinus Bradycardia -Left axis. ABNORMAL Invalid Interpretation Code [facility] Work Phone: Interpretation Sinus Bradycardia -L eft axis. ABNORMAL Invalid Interpretation Code [facility] Work Phone: [phone] P Reddick 39 deg Invalid Interpretation Code [facility] Work Phone: P wave axis, electrocardiogram 39 deg Invalid Interpretation Code [facility] Work Phone: CT Interval 154 ms Invalid Interpretation Code [facility] Work Phone: CT interval, electrocardiogram 154 ms Invalid Interpretation Code [facility] Work Phone: Pulse (Heart Rate) 55 /min Invalid Interpretation Code [facility] Work Phone: QRS axis, electrocardiogram -36 deg Invalid Interpretation Code [facility] Work Phone: QRS Duration 104 ms Invalid Interpretation Code [facility] Work Phone: QRS duration, electrocardiogram 104 ms Invalid Interpretation Code [facility] Work Phone: QT Interval new path ms Invalid Interpretation Code [facility] Work Phone: QT interval, electrocardiogram new path ms Invalid Interpretation Code [facility] Work Phone: T Reddick 31 deg Invalid Interpretation Code [facility] Work Phone: T wave axis, electrocardiogram 31 deg Invalid Interpretation Code [facility] Work Phone: Office Visiton 02-22-2015 Cholesterol [Mass/Vol] 164 mg/dL [facility] Work Phone: Cholesterol in HDL [Mass/Vol] 57 mg/dL [facility] Work Phone: Cholesterol in LDL [Mass/Vol] 76 mg/dL [facility] Work Phone: Triglyceride [Mass/Vol] 155 mg/dL [facility] Work Phone: Clinical Lists Update: Pre inbound telemarketer 02-09-2015 Free T4 index Calc [Mass/Vol] 10.2 Invalid Interpretation Code [facility] Work Phone: T4 [Mass/Vol] 9.9 ug/dL Invalid Interpretation Code [facility] Work Phone: Throyxin (T4) Free 10.2 ng/dL Invalid Interpretation Code [facility] Work Phone: Office Visiton 12-29-2014 cardiac risk group C Invalid Interpretation Code [facility] Work Phone: General cardiovascular disease 10Y risk [#] Alfred.D'Agostino N/A Invalid Interpretation Code [facility] Work Phone: Clinical Lists Update: inbound telemarketer 11-18-2014 Cholesterol in LDL/Cholesterol in HDL [Mass ratio] 2.06 [facility] Work Phone: Cholesterol.total/Chol esterol in HDL [Mass ratio] 3.56 {ratio} [facility] Work Phone: Lipoprotein.pre-beta [Mass/Vol] 32 mg/dL [facility] Work Phone: Replaced Document: [employer] E CG Observationson 01-12-2014 Pulse (Heart Rate) 406 ms Invalid Interpretation Code [facility] Work Phone: Office Visit: Thyroid evalua tibetsy 01-17-2013 General categories Cyto stain (Cvx/Vag) [Interp] Normal Invalid Interpretation Code [facility] Work Phone: Vital Signs Date Time Vital Sign Value Performing Clinician Facility 05-13-2025 16:09-0400 Body temperature 98.2 [degF] Dr. Rishi Vasquez DO Work Phone: [phone] [place] [address] 05-13-2025 16:09-0400 Body weight 70.[address] Rishi Vasquez DO Work Phone: [phone] [place] [address] 05-13-2025 16:09-0400 Diastolic blood pressure 54 mm[Hg] Dr. Rishi Vasquez DO Work Phone: 1(853)968-844370 [place] [address] 05-13-2025 16:09-0400 Heart rate 60 /min Dr. Rishi Vasquez DO Work Phone: 1(979)463-704570 [place] [address] 05-13-2025 16:09-0400 Respiratory rate 16 /min Dr. Rishi Vasquez DO Work Phone: 4(484)391-616070 [place] [address] 05-13-2025 16:09-0400 SaO2% (BldA) [Mass fraction] 97 % Dr. Rishi Vasquez DO Work Phone: 6(575)729-708670 [place] [address] 05-13-2025 16:09-0400 Systolic blood pressure 130 mm[Hg] Dr. Rishi Vasquez DO Work Phone: 7(889)304-582070 [place] [address] 05-07-2025 09:19-0400 Body height 167.[address] Rishi Vasquez DO Work Phone: 6(914)170-145770 [place] [address] 05-07-2025 09:19-0400 Body mass index (BMI) [Ratio] 24.7 kg/m2 Dr. Rishi Vasquez DO Work Phone: 3(837)124-503670 [place] [address] 05-07-2025 09:19-0400 Body weight 69.[address] Rishi Vasquez DO Work Phone: 8(715)304-475470 [place] [address] 05-07-2025 09:19-0400 Diastolic blood pressure 63 mm[Hg] Dr. Rishi Vasquez DO Work Phone: 6(505)372-603670 [place] [address] 05-07-2025 09:19-0400 Heart rate 56 /min Dr. Rishi Vasquez DO Work Phone: [facility] 05-07-2025 09:19-0400 Respiratory rate 16 /min Dr. Rishi Vasquez DO Work Phone: [facility] 05-07-2025 09:19-0400 Systolic blood pressure 123 mm[Hg] Dr. Rishi Vasquez DO Work Phone: [facility] 04-30-2025 11:13-0400 Body mass index (BMI) [Ratio] 24.5 kg/m2 Fouzia Chandra [employer]IDER ASSEMBLER.AUTOMOTIVE BUYER Work Phone: [facility] 04-30-2025 11:13-0400 Body weight 68.86 kg Fouzia Chandra [employer]IDER ASSEMBLER.AUTOMOTIVE BUYER Work Phone: [facility] 04-30-2025 11:13-0400 Diastolic blood pressure 60 mm[Hg] Fouzia Chandra SPIDER ASSEMBLER.AUTOMOTIVE BUYER Work Phone: [facility] 04-30-2025 11:13-0400 Heart rate 77 /min Fouzia Chandra SPIDER ASSEMBLER.AUTOMOTIVE BUYER Work Phone: [facility] 04-30-2025 11:13-0400 Respiratory rate 12 /min Fouzia Chandra SPIDER ASSEMBLER.AUTOMOTIVE BUYER Work Phone: [facility] 04-30-2025 11:13-0400 SaO2% (BldA) [Mass fraction] 98 % Fouzia Chandra SPIDER ASSEMBLER.AUTOMOTIVE BUYER Work Phone: [facility] 04-30-2025 11:13-0400 Systolic blood pressure 130 mm[Hg] Fouzia Chandra SPIDER ASSEMBLER.AUTOMOTIVE BUYER Work Phone: [facility] 04-15-2025 11:26-0400 Body height 167.[address] Rishi Vasquez DO Work Phone: [facility] 04-15-2025 11:26-0400 Body weight 74.[address] Rishi Vasquez DO Work Phone: [facility] 04-14-2025 07:25-0400 Body mass index (BMI) [Ratio] 26.4 kg/m2 Dr. Rishi Vasquez DO Work Phone: [facility] 04-03-2025 11:01-0400 Body temperature 98.2 [degF] Dr. Rishi Vasquez DO Work Phone: [facility] 04-03-2025 11:01-0400 Body weight 74.[address] Rishi Vasquez DO Work Phone: [facility] 04-03-2025 11:01-0400 Diastolic blood pressure 59 mm[Hg] Dr. Rishi Vasquez DO Work Phone: [facility] 04-03-2025 11:01-0400 Heart rate 60 /min Dr. Rishi Vasquez DO Work Phone: 1(331)856-857047 [place] [address] 04-03-2025 11:01-0400 Respiratory rate 14 /min Dr. Rishi Vasquez DO Work Phone: 9(359)149-941347 [place] [address] 04-03-2025 11:01-0400 SaO2% (BldA) [Mass fraction] 97 % Dr. Rishi Vasquez DO Work Phone: [facility] 04-03-2025 11:01-0400 Systolic blood pressure 124 mm[Hg] Dr. Rishi Vasquez DO Work Phone: [facility] 03-27-2025 10:16-0400 Diastolic blood pressure 68 mm[Hg] Yumiko Podlogar SPIDER ASSEMBLER.AUTOMOTIVE BUYER Work Phone: [facility] 03-27-2025 10:16-0400 Heart rate 74 /min Yumiko Podlogar SPIDER ASSEMBLER.AUTOMOTIVE BUYER Work Phone: [facility] 03-27-2025 10:16-0400 Respiratory rate 16 /min Yumiko Podlogar SPIDER ASSEMBLER.AUTOMOTIVE BUYER Work Phone: [facility] 03-27-2025 10:16-0400 SaO2% (BldA) [Mass fraction] 99 % Yumiko Podlogar SPIDER ASSEMBLER.AUTOMOTIVE BUYER Work Phone: [facility] 03-27-2025 10:16-0400 Systolic blood pressure 134 mm[Hg] Yumiko Podlogar SPIDER ASSEMBLER.AUTOMOTIVE BUYER Work Phone: [facility] 03-20-2025 08:28-0400 Body temperature 98.9 [degF] Dr. Rishi Vasquez DO Work Phone: [facility] 03-20-2025 08:28-0400 Diastolic blood pressure 57 mm[Hg] Dr. Rishi Vasquez DO Work Phone: 7(852)289-114347 [place] [address] 03-20-2025 08:28-0400 Heart rate 52 /min Dr. Rishi Vasquez DO Work Phone: 7(851)645-150370 [place] [address] 03-20-2025 08:28-0400 Respiratory rate 18 /min Dr. Rishi Vasquez DO Work Phone: 1(208)346-016370 [place] [address] 03-20-2025 08:28-0400 SaO2% (BldA) [Mass fraction] 97 % Dr. Rishi Vasquez DO Work Phone: 4(009)915-837147 [place] [address] 03-20-2025 08:28-0400 Systolic blood pressure 142 mm[Hg] Dr. Rishi Vasquez DO Work Phone: 5(182)780-503070 [place] [address] 03-19-2025 10:06-0400 Body height 167.[address] Rishi Vasquez DO Work Phone: 2(882)689-233970 [place] [address] 03-19-2025 10:06-0400 Body mass index (BMI) [Ratio] 26.4 kg/m2 Dr. Rishi Vasquez DO Work Phone: 1(762)990-007170 [place] [address] 03-19-2025 10:06-0400 Body weight 74.[address] Rishi Vasquez DO Work Phone: 3(230)444-617370 [place] [address] 03-11-2025 15:34-0400 Body temperature 97.9 [degF] Dr. Rishi Vasquez DO Work Phone: 3(588)339-323370 [place] [address] 03-11-2025 15:34-0400 Diastolic blood pressure 47 mm[Hg] Dr. Rishi Vasquez DO Work Phone: 5(698)977-100670 [place] [address] 03-11-2025 15:34-0400 Heart rate 58 /min Dr. Rishi Vasquez DO Work Phone: 2(432)875-152347 [place] [address] 03-11-2025 15:34-0400 Respiratory rate 16 /min Dr. Rishi Vasquez DO Work Phone: 3(118)567-498670 [place] [address] 03-11-2025 15:34-0400 SaO2% (BldA) [Mass fraction] 97 % Dr. Rishi Vasquez DO Work Phone: 9(259)451-778947 [place] [address] 03-11-2025 15:34-0400 Systolic blood pressure 112 mm[Hg] Dr. Rishi Vasquez DO Work Phone: 0(861)832-665670 [place] [address] 03-11-2025 05:37-0400 Body mass index (BMI) [Ratio] 26.6 kg/m2 Dr. Rishi Vasquez DO Work Phone: 1(469)447-820570 [place] [address] 03-11-2025 05:37-0400 Body weight 75.[address] Rishi Vasquez DO Work Phone: 9(758)456-516670 [place] [address] 03-07-2025 17:01-0400 Body temperature 98 [degF] Dr. Rishi Vasquez DO Work Phone: 6(439)039-240870 [place] [address] 03-07-2025 17:01-0400 Diastolic blood pressure 78 mm[Hg] Dr. Rishi Vasquez DO Work Phone: 8(713)851-146570 [place] [address] 03-07-2025 17:01-0400 Heart rate 67 /min Dr. Rishi Vasquez DO Work Phone: 3(622)611-426570 [place] [address] 03-07-2025 17:01-0400 Respiratory rate 14 /min Dr. Rishi Vasquez DO Work Phone: 1(538)984-830270 [place] [address] 03-07-2025 17:01-0400 SaO2% (BldA) [Mass fraction] 99 % Dr. Rishi Vasquez DO Work Phone: 6(410)848-909970 [place] [address] 03-07-2025 17:01-0400 Systolic blood pressure 109 mm[Hg] Dr. Rishi Vasquez DO Work Phone: 9(129)829-301170 [place] [address] 03-07-2025 13:42-0400 Body height 167.[address] Rishi Vasquez DO Work Phone: [facility] 03-07-2025 13:42-0400 Body mass index (BMI) [Ratio] 27.6 kg/m2 Dr. Rishi Vasquez DO Work Phone: [facility] 03-07-2025 13:42-0400 Body weight 77.[address] Rishi Vasquez DO Work Phone: [facility] 12-05-2024 09:39-0500 Diastolic blood pressure 60 mm[Hg] Rishi Vasquez DO Work Phone: [facility] 12-05-2024 09:39-0500 Systolic blood pressure 110 mm[Hg] Rishi Vasquez DO Work Phone: [facility] 12-05-2024 09:03-0500 Body mass index (BMI) [Ratio] 25.62 kg/m2 Rishi Vasquez DO Work Phone: [facility] 12-05-2024 09:03-0500 Body temperature 97 [degF] Rishi Vasquez DO Work Phone: [facility] 12-05-2024 09:03-0500 Body weight 72 kg Rishi Vasquez DO Work Phone: [facility] 12-05-2024 09:03-0500 Heart rate 60 /min Rishi Vasquez DO Work Phone: [facility] 12-05-2024 09:03-0500 Respiratory rate 16 /min Rishi Vasquez DO Work Phone: [facility] 06-04-2024 09:43-0400 Body mass index (BMI) [Ratio] 24.69 kg/m2 Rishi Vasquez DO Work Phone: [facility] 06-04-2024 09:43-0400 Body temperature 96.6 [degF] Rishi Vasquez DO Work Phone: [facility] 06-04-2024 09:43-0400 Body weight 69.4 kg Rishi Vasquez DO Work Phone: [facility] 06-04-2024 09:43-0400 Diastolic blood pressure 70 mm[Hg] Rishi Vasquez DO Work Phone: [facility] 06-04-2024 09:43-0400 Heart rate 64 /min Rishi Taterison DO Work Phone: [facility] 06-04-2024 09:43-0400 Respiratory rate 16 /min Rishi Taterison DO Work Phone: [facility] 06-04-2024 09:43-0400 Systolic blood pressure 154 mm[Hg] Rishi Vasquez DO Work Phone: [facility] 02-07-2024 09:19-0400 Body mass index (BMI) [Ratio] 25.8 kg/m2 Dr. Rishi Vasquez Work Phone: [facility] 02-07-2024 09:19-0400 Body weight 72.[address] Rishi Vasquez Work Phone: [facility] 02-07-2024 09:19-0400 Diastolic blood pressure 71 mm[Hg] Dr. Rishi Vasquez Work Phone: [facility] 02-07-2024 09:19-0400 Heart rate 47 /min Dr. Rishi Vasquez Work Phone: [facility] 02-07-2024 09:19-0400 Respiratory rate 18 /min Dr. Rishi Vasquez Work Phone: [facility] 02-07-2024 09:19-0400 Systolic blood pressure 142 mm[Hg] Dr. Rishi Vasquez Work Phone: [facility] 01-15-2024 10:00-0500 Diastolic blood pressure 71 mm[Hg] Anselmo Golias PT Work Phone: [facility] 01-15-2024 10:00-0500 Heart rate 63 /min Anselmo Golias PT Work Phone: [facility] 01-15-2024 10:00-0500 Systolic blood pressure 166 mm[Hg] Anselmo Golias PT Work Phone: [facility] 07-03-2023 09:06-0400 Body height 167.[address] Rishi Vasquez Work Phone: [facility] 07-03-2023 09:06-0400 Body mass index (BMI) [Ratio] 26.1 kg/m2 Dr. Rishi Vasquez Work Phone: [facility] 07-03-2023 09:06-0400 Body weight 73.[address] Rishi Vasquez Work Phone: [facility] 07-03-2023 09:06-0400 Diastolic blood pressure 62 mm[Hg] Dr. Rishi Vasquez Work Phone: [facility] 07-03-2023 09:06-0400 Heart rate 55 /min Dr. Rishi Vasquez Work Phone: [facility] 07-03-2023 09:06-0400 Respiratory rate 17 /min Dr. Rishi Vasquez Work Phone: [facility] 07-03-2023 09:06-0400 SaO2% (BldA) [Mass fraction] 99 % Dr. Rishi Vasquez Work Phone: [facility] 07-03-2023 09:06-0400 Systolic blood pressure 145 mm[Hg] Dr. Rishi Vasquez Work Phone: [facility] 06-04-2023 11:25-0400 Body temperature 97.3 [degF] Rishi Vasquez DO Work Phone: [facility] 06-04-2023 11:25-0400 Body weight 72.58 kg Rishi Vasquez DO Work Phone: [facility] 06-04-2023 11:25-0400 Diastolic blood pressure 70 mm[Hg] Rishi Vasquez DO Work Phone: [facility] 06-04-2023 11:25-0400 Heart rate 60 /min Rishi Vasquez DO Work Phone: [facility] 06-04-2023 11:25-0400 Respiratory rate 16 /min Rishi Vasquez DO Work Phone: [facility] 06-04-2023 11:25-0400 Systolic blood pressure 120 mm[Hg] Rishi Vasquez DO Work Phone: [facility] 04-20-2023 08:57-0400 Body height 167.[address] Rishi Vasquez Work Phone: 3(201)731-147247 [place] [address] 04-20-2023 08:57-0400 Heart rate 56 /min Dr. Rishi Vasquez Work Phone: 7(688)564-096970 [place] [address] 04-20-2023 08:51-0400 Body mass index (BMI) [Ratio] 25.9 kg/m2 Dr. Rishi Vasquez Work Phone: 4(920)253-541870 [place] [address] 04-20-2023 08:51-0400 Body weight 73.[address] Rishi Vasquez Work Phone: 2(778)270-332447 [place] [address] 04-20-2023 08:51-0400 Diastolic blood pressure 72 mm[Hg] Dr. Rishi Vasquez Work Phone: 7(400)600-428347 [place] [address] 04-20-2023 08:51-0400 Respiratory rate 18 /min Dr. Rishi Vasquez Work Phone: 3(266)803-343247 [place] [address] 04-20-2023 08:51-0400 SaO2% (BldA) [Mass fraction] 99 % Dr. Rishi Vasquez Work Phone: 0(245)231-341847 [place] [address] 04-20-2023 08:51-0400 Systolic blood pressure 147 mm[Hg] Dr. Rishi Vasquez Work Phone: 9(693)099-975150 [address] 12-05-2022 09:40-0500 Body temperature 97.3 [degF] Rishi Vasquez DO Work Phone: [facility] 12-05-2022 09:40-0500 Body weight 72.58 kg Rishi Vasquez DO Work Phone: [facility] 12-05-2022 09:40-0500 Diastolic blood pressure 82 mm[Hg] Rishi Vasquez DO Work Phone: [facility] 12-05-2022 09:40-0500 Heart rate 64 /min Rishi Vasquez DO Work Phone: [facility] 12-05-2022 09:40-0500 Respiratory rate 16 /min Rishi Vasquez DO Work Phone: [facility] 12-05-2022 09:40-0500 Systolic blood pressure 126 mm[Hg] Rishi Vasquez DO Work Phone: [facility] 09-23-2022 09:01-0400 Body temperature 97.5 [degF] Camille Athy PA-C Work Phone: [facility] 09-23-2022 09:01-0400 Body weight 74.93 kg Camille Athy PA-C Work Phone: [facility] 09-23-2022 09:01-0400 Diastolic blood pressure 72 mm[Hg] Camille Athy PA-C Work Phone: [facility] 09-23-2022 09:01-0400 Heart rate 62 /min Camille Athy PA-C Work Phone: [facility] 09-23-2022 09:01-0400 Respiratory rate 21 /min Camille Athy PA-C Work Phone: [facility] 09-23-2022 09:01-0400 SaO2% (BldA) [Mass fraction] 99 % Camille Athy PA-C Work Phone: [facility] 09-23-2022 09:01-0400 Systolic blood pressure 160 mm[Hg] Camille Athy PA-C Work Phone: [facility] 08-15-2022 12:13-0400 Body temperature 97.81 [degF] Camille Athy PA-C Work Phone: [facility] 08-15-2022 12:13-0400 Body weight 75.03 kg Camille Athy PA-C Work Phone: [facility] 08-15-2022 12:13-0400 Diastolic blood pressure 86 mm[Hg] Camille Athy PA-C Work Phone: [facility] 08-15-2022 12:13-0400 Heart rate 49 /min Camille Athy PA-C Work Phone: [facility] 08-15-2022 12:13-0400 Respiratory rate 18 /min Camille Athy PA-C Work Phone: [facility] 08-15-2022 12:13-0400 SaO2% (BldA) [Mass fraction] 98 % Camille Athy PA-C Work Phone: [facility] 08-15-2022 12:13-0400 Systolic blood pressure 162 mm[Hg] Camille Athy PA-C Work Phone: [facility] 08-08-2022 09:30-0400 Body height 167.[address] Rishi Vasquez Work Phone: [facility] Work Phone: 08-08-2022 09:30-0400 Body mass index (BMI) [Ratio] 26.6 kg/m2 Dr. Rishi Vasquez Work Phone: [facility] Work Phone: 08-08-2022 09:30-0400 Body weight 74.[address] Rishi Vasquez Work Phone: [facility] Work Phone: 08-08-2022 09:30-0400 Diastolic blood pressure 51 mm[Hg] Dr. Rishi Vasquez Work Phone: [facility] Work Phone: 08-08-2022 09:30-0400 Heart rate 46 /min Dr. Rishi Vasquez Work Phone: [facility] Work Phone: 08-08-2022 09:30-0400 Respiratory rate 16 /min Dr. Rishi Vasquez Work Phone: [facility] Work Phone: 08-08-2022 09:30-0400 Systolic blood pressure 126 mm[Hg] Dr. Rishi Vasquez Work Phone: [facility] Work Phone: 06-29-2022 09:35-0400 Diastolic blood pressure 71 mm[Hg] Dr. Rishi Vasquez Work Phone: [facility] Work Phone: 06-29-2022 09:35-0400 Respiratory rate 18 /min Dr. Rishi Vasquez Work Phone: [facility] Work Phone: 06-29-2022 09:35-0400 Systolic blood pressure 164 mm[Hg] Dr. Rishi Vasquez Work Phone: [facility] Work Phone: 06-17-2022 08:24-0400 Body temperature 97.9 [degF] Kena Older SPIDER ASSEMBLER.AUTOMOTIVE BUYER Work Phone: [facility] 06-17-2022 08:24-0400 Body weight 76.39 kg Kena Older SPIDER ASSEMBLER.AUTOMOTIVE BUYER Work Phone: [facility] 06-17-2022 08:24-0400 Diastolic blood pressure 80 mm[Hg] Kena Older SPIDER ASSEMBLER.AUTOMOTIVE BUYER Work Phone: [facility] 06-17-2022 08:24-0400 Heart rate 59 /min Kena Older SPIDER ASSEMBLER.AUTOMOTIVE BUYER Work Phone: [facility] 06-17-2022 08:24-0400 Respiratory rate 20 /min Kena Older SPIDER ASSEMBLER.AUTOMOTIVE BUYER Work Phone: [facility] 06-17-2022 08:24-0400 SaO2% (BldA) [Mass fraction] 97 % Kena Older SPIDER ASSEMBLER.AUTOMOTIVE BUYER Work Phone: [facility] 06-17-2022 08:24-0400 Systolic blood pressure 158 mm[Hg] Kena Older SPIDER ASSEMBLER.AUTOMOTIVE BUYER Work Phone: [facility] 05-31-2022 10:19-0400 Body temperature 98.29 [degF] Rishi Taterison DO Work Phone: [facility] 05-31-2022 10:19-0400 Body weight 75.3 kg Rishi Taterison DO Work Phone: [facility] 05-31-2022 10:19-0400 Diastolic blood pressure 70 mm[Hg] Rishi Taterison DO Work Phone: [facility] 05-31-2022 10:19-0400 Heart rate 56 /min Rishi Vasquez DO Work Phone: [facility] 05-31-2022 10:19-0400 Systolic blood pressure 116 mm[Hg] Rishi Del Rosarioon DO Work Phone: [facility] 02-07-2022 08:55-0400 Body height 167.[address] Rishi Vasquez Work Phone: [facility] Work Phone: 02-07-2022 08:55-0400 Body mass index (BMI) [Ratio] 26.9 kg/m2 Dr. Rishi Vasquez Work Phone: [facility] Work Phone: 02-07-2022 08:55-0400 Body weight 75.[address] Rishi Vasquez Work Phone: [facility] Work Phone: 02-07-2022 08:55-0400 Diastolic blood pressure 68 mm[Hg] Dr. Rishi Vasquez Work Phone: [facility] Work Phone: 02-07-2022 08:55-0400 Heart rate 63 /min Dr. Rishi Vasquez Work Phone: [facility] Work Phone: 02-07-2022 08:55-0400 Respiratory rate 18 /min Dr. Rishi Vasquez Work Phone: [facility] Work Phone: 02-07-2022 08:55-0400 SaO2% (BldA) [Mass fraction] 100 % Dr. Rishi Vasquez Work Phone: [facility] Work Phone: 02-07-2022 08:55-0400 Systolic blood pressure 152 mm[Hg] Dr. Rishi Vasquez Work Phone: [facility] Work Phone: 01-20-2022 09:42-0500 Body temperature 97.6 [degF] Dr. Rishi Vasquez Work Phone: [facility] Work Phone: 01-20-2022 09:42-0500 Diastolic blood pressure 56 mm[Hg] Dr. Rishi Vasquez Work Phone: [facility] Work Phone: 01-20-2022 09:42-0500 Heart rate 75 /min Dr. Rishi Vasquez Work Phone: [facility] Work Phone: 01-20-2022 09:42-0500 Respiratory rate 16 /min Dr. Rishi Vasquez Work Phone: [facility] Work Phone: 01-20-2022 09:42-0500 SaO2% (BldA) [Mass fraction] 98 % Dr. Rishi Vasquez Work Phone: [facility] Work Phone: 01-20-2022 09:42-0500 Systolic blood pressure 123 mm[Hg] Dr. Rishi Vasquez Work Phone: [facility] Work Phone: 12-29-2021 08:28-0500 Body mass index (BMI) [Ratio] 27.1 kg/m2 Dr. Rishi Vasquez Work Phone: [facility] Work Phone: 12-29-2021 08:28-0500 Body temperature 97.8 [degF] Dr. Rishi Vasquez Work Phone: [facility] Work Phone: 12-29-2021 08:28-0500 Body weight 76.[address] Rishi Vasquez Work Phone: [facility] Work Phone: 12-29-2021 08:28-0500 Diastolic blood pressure 64 mm[Hg] Dr. Rishi Vasquez Work Phone: [facility] Work Phone: 12-29-2021 08:28-0500 Heart rate 60 /min Dr. Rishi Vasquez Work Phone: [facility] Work Phone: 12-29-2021 08:28-0500 Respiratory rate 17 /min Dr. Rishi Vasquez Work Phone: [facility] Work Phone: 12-29-2021 08:28-0500 SaO2% (BldA) [Mass fraction] 97 % Dr. Rishi Vasquez Work Phone: [facility] Work Phone: 12-29-2021 08:28-0500 Systolic blood pressure 182 mm[Hg] Dr. Rishi Vasquez Work Phone: [facility] Work Phone: 10-18-2021 23:19-0500 Body mass index (BMI) [Ratio] 26.9 kg/m2 Dr. Rishi Vasquez Work Phone: [facility] Work Phone: 08-30-2017 15:31-0400 BMI (Body Mass Index) 29.78 kg/m2 Kwaku Moscoso MD [facility] Work Phone: 08-30-2017 15:31-0400 Body Temperature 98.1 [degF] Kwaku Moscoso MD [facility] Work Phone: 08-30-2017 15:31-0400 BP Diastolic 73 mm[Hg] Kwaku Moscoso MD [facility] Work Phone: 08-30-2017 15:31-0400 BP Systolic 156 mm[Hg] Kwaku Moscoso MD [facility] Work Phone: 08-30-2017 15:31-0400 Height 165.1 cm Kwaku Moscoso MD [facility] Work Phone: 08-30-2017 15:31-0400 Pulse (Heart Rate) 54 /min Kwaku Moscoso MD [facility] Work Phone: 08-30-2017 15:31-0400 Respiratory Rate 18 /min Kwaku Moscoso MD [facility] Work Phone: 08-30-2017 15:31-0400 Weight 81.19 kg Kwaku Moscoso MD [facility] [employer] Work Phone: 06-11-2017 10:53-0400 BMI (Body Mass Index) 29.7 kg/m2 Gaye Jasmine [facility] Work Phone: 06-11-2017 10:53-0400 BP Diastolic 60 mm[Hg] Gaye Kenroy [facility] Work Phone: 06-11-2017 10:53-0400 BP Systolic 142 mm[Hg] Gaye Jasmine [facility] Work Phone: 06-11-2017 10:53-0400 Height 167.64 cm Gaye Kenroy [facility] Work Phone: 06-11-2017 10:53-0400 Pulse (Heart Rate) 54 /min Gaye Jasmine [facility] Work Phone: 06-11-2017 10:53-0400 Respiratory Rate 18 /min [facility] Work Phone: 06-11-2017 10:53-0400 Weight 83.46 kg [facility] Work Phone: 05-02-2017 12:55-0400 BMI (Body Mass Index) 29.7 kg/m2 Marly Signs MD [facility] Work Phone: 05-02-2017 12:55-0400 BP Diastolic 62 mm[Hg] Marly Signs MD [facility] Work Phone: 05-02-2017 12:55-0400 BP Systolic 110 mm[Hg] Marly Signs MD [facility] Work Phone: 05-02-2017 12:55-0400 Pulse (Heart Rate) 62 /min Marly Signs [facility] Work Phone: 05-02-2017 12:55-0400 Pulse Oximetry 99 % Marly Signs MD [facility] Work Phone: 05-02-2017 12:55-0400 Weight 83.46 kg Marly Signs MD [facility] Work Phone: 04-23-2017 11:14-0400 BMI (Body Mass Index) 30.08 kg/m2 Shaina Serna LPN [facility] Work Phone: 04-23-2017 11:14-0400 Body Temperature 98.7 [degF] Shaina Serna LPN [facility] Work Phone: 04-23-2017 11:14-0400 Body weight 84.55 kg Shaina Serna LPN [facility] Work Phone: 04-23-2017 11:14-0400 BP Diastolic 72 mm[Hg] Shaina [facility] Work Phone: 04-23-2017 11:14-0400 BP Systolic 125 mm[Hg] Shaina [facility] Work Phone: 04-23-2017 11:14-0400 Height 167.64 cm Shaina [facility] Work Phone: 04-23-2017 11:14-0400 Pulse (Heart Rate) 60 /min Shaina Kareem [employer]INCIPAL SOFTWARE ARCHITECT [facility] Work Phone: 04-23-2017 11:14-0400 Pulse Oximetry 98 % Shaina Serna LPN [facility] Work Phone: 04-23-2017 11:14-0400 Respiratory Rate 18 /min Shaina Serna LPN [facility] Work Phone: 04-23-2017 11:14-0400 Weight 84.55 kg Marlyariela Patino MD [facility] Work Phone: 02-06-2017 12:57-0400 Body Temperature 98.4 [degF] Shaina Serna LPN [facility] Work Phone: 02-06-2017 12:57-0400 Body weight 80.92 kg Shaina Serna LPN [facility] Work Phone: 02-06-2017 12:57-0400 BP Diastolic 76 mm[Hg] Shaina Serna LPN [facility] Work Phone: 02-06-2017 12:57-0400 BP Systolic 140 mm[Hg] Shaina Serna LPN [facility] Work Phone: 02-06-2017 12:57-0400 BSA (Body Surface Area) 1.91 m2 Shaina Serna LPN [facility] Work Phone: 02-06-2017 12:57-0400 Height 167.64 cm Shaina Serna LPN [facility] Work Phone: 02-06-2017 12:57-0400 Weight 80.92 kg [facility] Work Phone: 12-05-2016 12:56-0500 Pulse Oximetry 98 % Shaina Serna LPN [facility] Work Phone: 11-17-2016 07:54-0500 Body surface area Derived from formula 45.87 mL/min Shaina Serna LPN [facility] Work Phone: 05-25-2015 14:56-0400 Heart rate 55 /min Shaina Serna LPN [facility] Work Phone: 01-12-2014 13:16-0500 Heart rate 406 ms Shaina Serna PRINCIPAL SOFTWARE ARCHITECT [facility] Work Phone: Encounters Encounter Date Encounter Type Care Provider Facility Start: 06-30-2025 ambulatory Rishi Vasquez Facilit y:[facility] Start: 05-26-2025 ambulatory Rishi Vasquez Facilit y:[facility] Start: 05-17-2025 Encounter for other preprocedural examination Russell Clement [facility] Start: 05-17-2025 Emergency department patient visit Rishi Vasquez Facility:[facility] Start: 05-13-2025 End: 05-13-2025 Abena VYAS [facility] Work Phone: Start: 05-13-2025 End: 05-13-[address] Rishi Vasquez DO Work Phone: [facility] Work Phone: Start: 05-12-2025 Encounter for preprocedural cardiovascular examination Jarret Quiles [facility] Start: 05-11-2025 ambulatory Rishi Dewey y:[facility] Start: 05-11-2025 Non-patient / Non-visit Dr. Jarret walden MD -[facility] Start: 05-11-2025 Dr. Jarret Quiles MD -[facility] Start: 05-08-2025 End: 05-08-[address] Rishi Vasquez DO Work Phone: [facility] Work Phone: Start: 05-08-2025 End: 05-08-[address] Jarret Quiles MD -Cardiovascular Services Work Phone: Start: 05-08-2025 End: 05-08-2025 Dr. Jarret Quiles MD -Cardiovascular Services Work Phone: Start: 05-07-2025 End: 05-07-2025 Patient encounter procedure Rick Bergeron NP-C -[facility] Work Phone: Start: 05-07-2025 End: 05-07-2025 Patient encounter status Rick Tripathi Rubio SPECIAL POPULATION PARAPROFESSIONAL-C [facility] Comment on above: Vascular surgery in May Start: 05-07-2025 End: 05-07-2025 Rick Tripathi Rubio SPECIAL POPULATION PARAPROFESSIONAL-C -[facility] Work Phone: Start: 05-07-2025 End: 05-08-[address] Rishi Vasquez DO Work Phone: [facility] Work Phone: Start: 05-06-2025 End: 05-07-2025 Telephone encounter Rishi Vasquez DO Work Phone: [facility] Comment on above: Medication Problem Start: 04-30-2025 End: 04-30-2025 Office outpatient visit 25 minutes Fouzia Escobedo APRN.AUTOMOTIVE BUYER Work Phone: [facility] Comment on above: Diabetes mellitus ty pe 2 with peripheral artery disease (HCC) (Primary Dx); Hyperglycemia Start: 04-30-2025 End: 04-30-2025 ambulatory FOUZIA ESCOBEDO Facility:[facility] Start: 04-27-2025 End: 04-27-[address] Rishi Vasquez DO Work Phone: [facility] Work Phone: Start: 04-27-2025 End: 04-27-[address] Ciaran Renee MD -Ultrasound [facility] Work Phone: Start: 04-27-2025 End: 04-27-2025 Dr. Ciaran Renee MD -Ultrasound [facility] Work Phone: Start: 04-27-2025 End: 04-27-2025 ambulatory Rishi Vasquez Facility:[facility] Start: 04-23-2025 ambulatory Rishi Vasquez Facilit y:[facility] Start: 04-23-[address] Rishi ponce DO -Cardiac Rehab Work Phone: Start: 04-23-2025 Dr. Rishi Vasquez DO -Cardiac Rehab Work Phone: Start: 04-21-[address] Rishi ponce DO -Cardiac Rehab Work Phone: Start: 04-20-2025 Non-patient / Non-visit Dr. Russell dobbs MD -[facility] Start: 04-20-2025 End: 04-20-[address] Rishi Vasquez DO Work Phone: [facility] Work Phone: Start: 04-20-2025 End: 04-20-2025 Patient encounter procedure Abena Fiore PA -Cardiovascular Services Work Phone: Start: 04-20-2025 End: 04-20-2025 Dr. Russell Clement MD -[facility] Start: 04-20-2025 End: 04-20-2025 ambulatory Rishi Vasquez Facility:[facility] Start: 04-16-2025 End: 04-16-2025 Telephone encounter Rishi Vasquez DO Work Phone: [facility] Comment on above: Halfway Plan of Care Start: 04-15-2025 ambulatory Rishi Vasquez Facilit y:[facility] Start: 04-15-2025 Non-patient / Non-visit Dr. Russell dobbs MD -[facility] Start: 04-15-2025 Dr. Russell Clement MD -[facility] Start: 04-15-2025 End: 04-15-2025 Telephone encounter Fouzia Escobedo APRN.AUTOMOTIVE BUYER Work Phone: [facility] Start: 04-15-2025 End: 04-15-2025 Admission to same day surgery center Dr. Russell Clement MD -Electrical Helper/Special Procedures Work Phone: Start: 04-15-2025 End: 04-15-2025 Dr. Russell Clement MD -Electrical Helper/Special Procedures Work Phone: Start: 04-15-2025 End: 04-15-[address] Rishi Vasquez DO Work Phone: [facility] Work Phone: Start: 04-07-2025 End: 04-21-2025 ambulatory Rishi Vasquez DO Work Phone: [facility] [place] Comment on above: Diabetes Start: 04-03-2025 End: 04-03-2025 Patient encounter procedure Abena VYAS -[facility] Work Phone: Start: 04-03-2025 End: 04-03-2025 Abena VYAS -[facility] Work Phone: Start: 04-03-2025 End: 04-03-[address] Rishi Vasquez DO Work Phone: [facility] Work Phone: Start: 03-27-2025 End: 03-27-2025 Patient encounter procedure Yumiko Valenzuelalogcarlo CONLEY Work Phone: [facility] [place] Comment on above: Hospital discharge f ollow-up (Primary Dx); Diabetic foot ulcer associated with type 2 diabetes mellitus, unspecified laterality, unspecified part of foot, unspecified ulcer stage (HCC); Abnormality of gait; Falling episodes Start: 03-27-2025 End: 03-27-2025 ambulatory YUMIKO PODLOGAR Facility:[facility] Start: 03-26-2025 End: 03-26-2025 Telephone encounter Rishi Vasquez DO Work Phone: [facility] [place] Comment on above: Patient Update Start: 03-24-2025 End: 03-25-2025 Telephone encounter Rishi Vasquez DO Work Phone: [facility] [place] Comment on above: [facility] PT POC Start: 03-23-2025 End: 03-24-2025 Telephone encounter Rishi Vasquez DO Work Phone: [facility] [place] Comment on above: HH Nursing POC Start: 03-20-2025 End: 03-23-2025 Telephone encounter Rishi Vasquez DO Work Phone: [facility] [place] Comment on above: Orders Start: 03-19-2025 End: 03-19-[address] Phong Solomon MD -[facility] Work Phone: Start: 03-19-2025 End: 04-18-[address] Rishi Vasquez DO -Cardiac Rehab Work Phone: Start: 03-19-[address] Rishi ponce DO -Cardiac Rehab Work Phone: Start: 03-19-2025 End: 04-18-2025 Dr. Rishi Vasquez DO -Cardiac Rehab Work Phone: Start: 03-19-2025 End: 04-18-[address] Rishi Vasquez DO Work Phone: [facility] Work Phone: Start: 03-19-2025 End: 03-19-2025 ambulatory Rishi Vasquez Facility:[facility] Start: 03-13-2025 Non-patient / Non-visit Abena Fiore [facility] Start: 03-13-2025 Abena Fiore [facility] Start: 03-11-2025 End: 03-20-2025 Dr. Phong Solomon MD -Transitional Care Unit Start: 03-11-2025 ambulatory Rishi Vasquez Facilit y:[facility] Start: 03-11-2025 End: 03-20-2025 Evaluation and management of inpatient Dr. Phong Solomon MD -Transitional Care Unit Start: 03-11-2025 Non-patient / Non-visit Dr. Broderick Dempsey MD -[facility] Work Phone: Start: 03-11-2025 Dr. Broderick Dempsey MD -[facility] Work Phone: Start: 03-10-2025 Non-patient / Non-visit Dr. Broderick Dempsey MD -[facility] Work Phone: Start: 03-10-2025 Dr. Broderick Dempsey MD -[facility] Work Phone: Start: 03-10-2025 Non-patient / Non-visit Abena VYAS [facility] Start: 03-10-2025 Abena VYAS [facility] Start: 03-09-2025 Non-patient / Non-visit Dr. Russell dobbs MD -[facility] Start: 03-09-2025 Dr. Russell Clement MD -[facility] Start: 03-08-2025 Non-patient / Non-visit Dr. Broderick Dempsey MD -[facility] Work Phone: Start: 03-08-2025 Dr. Broderick Dempsey MD -[facility] Work Phone: Start: 03-07-2025 ambulatory Rishi Vasquez Facilit y:[facility] Start: 03-07-2025 End: 03-11-2025 Evaluation and management of inpatient Dr. Maddie Merchant MD -Medical Surgical 3 Work Phone: Start: 03-07-2025 End: 03-11-2025 Dr. Broderick Dempsey MD -Medical Surgical 3 Work Phone: Start: 02-26-2025 End: 02-26-[address] Rishi Vasquez DO Work Phone: [facility] Work Phone: Start: 02-26-2025 End: 02-26-[address] Patel Irene DPM -Laboratory, Specimen Work Phone: Start: 02-26-2025 End: 02-26-2025 Dr. Patel Irene DPM -Laboratory Specim en Work Phone: Start: 02-26-2025 End: 02-26-2025 ambulatory Rishi Vasquez Facility:[facility] Start: 02-17-2025 End: 03-18-[address] Rishi Vasquez DO -Cardiac Rehab Work Phone: Start: 02-17-[address] Rishi ponce DO -Cardiac Rehab Work Phone: Start: 02-17-2025 End: 03-18-2025 Dr. Rishi Vasquez DO -Cardiac Rehab Work Phone: Start: 02-17-2025 End: 03-18-2025 ambulatory Rishi Vasquez Facility:[facility] Start: 02-16-2025 End: 02-16-[address] Rishi Vasquez DO Work Phone: [facility] Work Phone: Start: 02-16-2025 End: 02-16-[address] Rishi Vasquez DO -Laboratory, Specimen Work Phone: Start: 02-16-2025 End: 02-16-2025 Ciaran Berry DPM -Laboratory Specime n Work Phone: Start: 02-16-2025 End: 02-16-2025 ambulatory Ciaran Berry Facility:[facility] Start: 02-05-2025 End: 02-16-[address] Rishi Vasquez DO Work Phone: [facility] Work Phone: Start: 02-05-2025 End: 02-16-[address] Rishi Vasquez DO -Cardiac Rehab Work Phone: Start: 02-05-2025 End: 02-16-2025 Dr. Rishi Vasquez DO -Cardiac Rehab Work Phone: Start: 01-06-2025 ambulatory Brandon Membreno [place] [facility] Start: 01-06-2025 Non-patient / Non-visit Dr. Russell dobbs MD -[facility] Start: 01-06-2025 End: 01-06-[address] Brandon Membreno DPM -Cardiovascular Services Work Phone: Start: 01-06-2025 End: 01-06-2025 ambulatory Rishi Vasquez Facility:[facility] Start: 12-30-2024 End: 12-30-[address] Patel Irene DPLebron -Laboratory, Specimen Work Phone: Start: 12-30-2024 End: 12-30-2024 ambulatory Patel Irene Facility:[facility] Start: 12-25-2024 End: 12-26-2024 Refill Rishi Vasquez DO Work Phone: [facility] Comment on above: Refill Request Start: 12-23-2024 End: 01-16-[address] Rishi Vasquez DO -Cardiac Rehab Work Phone: Start: 12-23-2024 End: 01-16-2025 ambulatory Rishi Vasquez Facility:[facility] Start: 12-18-2024 End: 12-19-2024 ambulatory Rishi Vasquez Facility:[facility] Start: 12-18-2024 End: 12-19-[address] Rishi Vasquez DO -Cardiac Rehab Work Phone: Start: 12-17-2024 End: 12-17-[address] Brandon Membreno DPM -Laboratory, Specimen Work Phone: Start: 12-17-2024 End: 12-17-2024 ambulatory Rishi Vasquez Facility:[facility] Start: 12-05-2024 End: 12-05-2024 Patient encounter procedure Rishi Vasquez DO Work Phone: [facility] Comment on above: Diabetes mellitus ty [...] involvement Start: 12-05-2024 End: 12-05-2024 ambulatory RISHI L VASQUEZ Facility:[facility] Start: 12-01-2024 End: 12-01-2024 ambulatory RISHI L VASQUEZ Facility:[facility] Start: 11-29-2024 ambulatory Rishi Taterison Facilit y:[facility] Start: 11-18-2024 End: 11-18-2024 ambulatory Rishi Vasquez Facility:[facility] Start: 11-18-2024 End: 11-18-[address] Rishi Vasquez DO -Cardiac Rehab Work Phone: Start: 10-14-2024 End: 10-18-2024 ambulatory Rishi Vasquez Facility:[facility] Start: 09-18-2024 End: 09-18-2024 ambulatory Rishi Vasquez Facility:[facility] Start: 09-10-2024 End: 09-15-2024 Telephone encounter Rishi Vasquez DO Work Phone: [facility] Comment on above: Patient Question Start: 09-05-2024 End: 09-05-2024 Patient encounter procedure [facility] [place] Work Phone: [facility] Start: 09-05-2024 End: 09-05-2024 ambulatory [facility] [place] Work Phone: [facility] Start: 08-18-2024 End: 08-19-2024 Telephone encounter Rishi Vasquez DO Work Phone: [facility] Comment on above: Patient Question (Fi sh oil - Remus 3) Start: 08-16-2024 End: 08-18-2024 ambulatory Rishi Taterison DO Work Phone: [facility] Comment on above: OMEGA 3 FROM FISH OI L Start: 08-14-2024 End: 08-18-2024 ambulatory Rishi Vasquez Facility:[facility] Start: 08-08-2024 End: 08-12-2024 Telephone encounter Rishi Taterison DO Work Phone: [facility] Comment on above: Patient Update Start: 08-01-2024 End: 08-01-2024 [facility] Start: 07-17-2024 End: 07-19-2024 ambulatory Rishi Vasquez Facility:[facility] Start: 06-19-2024 End: 06-19-2024 ambulatory Curtis Prayson Facility:[facility] Start: 06-17-2024 End: 06-18-2024 ambulatory Rishi Vasquez Facility:[facility] Start: 06-13-2024 Telephone encounter Rishi julian DO Work Phone: [facility] [place] Start: 06-10-2024 ambulatory No Pcp SPIDER ASSEMBLER [facility] [place] Start: 06-10-2024 Patient encounter procedure No Pcp SPIDER ASSEMBLER [facility] [place] Start: 06-04-2024 Documentation procedure Mammog rain Coordinator [facility] Start: 06-04-2024 Letter encounter Mammography Coordinator [facility] Start: 06-04-2024 Telephone encounter Rishi julian DO Work Phone: [facility] [place] Comment on above: Results Start: 06-04-2024 End: 06-04-2024 ambulatory RISHI VASQUEZ Facility:[facility] Start: 06-04-2024 End: 06-04-2024 Patient encounter procedure Rishi Vasquez DO Work Phone: [facility] [place] Comment on above: Chronic midline low [...] nodules Start: 06-03-2024 End: 06-03-2024 ambulatory RISHI Evelyne VASQUEZ Facility:[facility] Start: 06-03-2024 End: 06-03-2024 Subsequent hospital visit by physician Screen Mammo [facility] Comment on above: Encounter for screen ing mammogram for malignant neoplasm of breast [Z12.31] Start: 05-30-2024 End: 05-30-2024 ambulatory CLARYGI ANDRES Facility:[facility] Start: 05-19-2024 Telephone encounter Rishi julian DO Work Phone: [facility] [place] Comment on above: Orders Start: 05-18-2024 ambulatory Rishi Evelyne Wright andrews DO Work Phone: [facility] [place] Comment on above: Blood work Start: 03-22-2024 Refill Rishi Evelyne Wright son DO Work Phone: [facility] Comment on above: Refill Request Start: 03-20-2024 End: 03-20-2024 ambulatory Anselmo Golias PT Work Phone: [facility] Comment on above: 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 Rishi Vasquez Work Phone: [facility] Work Phone: Start: 03-18-2024 End: 03-18-[address] Rishi Vasquez Work Phone: [facility]-Cardiac Rehab Work Phone: Start: 03-13-[address] Jim Vasquez Work Phone: [facility]-Cardiac Rehab Work Phone: Start: 03-11-2024 Non-patient / Non-visit Dr. Marcie Vasquez Work Phone: [facility] Start: 03-11-2024 End: 03-11-[address] Rishi Vasquez Work Phone: [facility] Work Phone: Start: 03-11-2024 End: 03-11-[address] Rishi Vasquez Work Phone: [facility]-Cardiovascul ar Services Work Phone: Start: 03-10-2024 End: 03-10-2024 ambulatory Keisha Guzman UNIX MANAGER Work Phone: [facility] Comment on above: 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) Start: 03-06-2024 End: 03-06-2024 ambulatory Anselmo Golias PT Work Phone: [facility] Comment on above: 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) Start: 02-14-2024 End: 02-17-[address] Rishi Vasquez Work Phone: [facility] Work Phone: Start: 02-14-2024 End: 02-17-[address] Rishi Vasquez Work Phone: [facility]-Cardiac Rehab Work Phone: Start: 02-07-2024 End: 02-07-[address] Rishi Vasquez Work Phone: [facility] Work Phone: Start: 02-05-2024 End: 02-05-2024 ambulatory Keisha Guzman UNIX MANAGER Work Phone: [facility] Comment on above: 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) Start: 01-30-2024 End: 01-30-2024 ambulatory Anselmo Golias PT Work Phone: [facility] Comment on above: 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) Start: 01-28-2024 Refill Clary Andres APRN.AUTOMOTIVE BUYER Work Phone: [facility] Comment on above: Refill Request Start: 01-23-2024 End: 01-23-2024 ambulatory Anselmo Golias PT Work Phone: [facility] Comment on above: 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) Start: 01-17-2024 End: 01-17-2024 ambulatory [facility] Work Phone: Start: 01-17-2024 End: 01-17-2024 Discharged Recurring [facility]-Cardiac Rehab Work Phone: Start: 01-15-2024 End: 01-15-2024 ambulatory Anselmo Golias PT Work Phone: [facility] Comment on above: Chronic midline low back pain without sciatica Start: 01-14-2024 ambulatory Rishi contreras DO Work Phone: [facility] [place] Start: 01-14-2024 Patient encounter procedure Rishi Vasquez DO Work Phone: [facility] [place] Comment on above: APPOINTMENT WITH GEN PEPPER SURGEON Start: 01-10-2024 Telephone encounter Rishi julian DO Work Phone: [facility] [place] Comment on above: Results Start: 12-27-2023 ambulatory Rishi contreras DO Work Phone: [facility] [place] Comment on above: MEDICATION QUESTION Start: 12-27-2023 Telephone encounter Rishi julian DO Work Phone: [facility] [place] Comment on above: Patient Update Start: 12-20-2023 End: 12-20-2023 Subsequent hospital visit by physician [facility] Work Phone: Radiology Comment on above: Multiple thyroid nod ules [E04.2] Start: 12-18-2023 End: 12-19-2023 Discharged Recurring [facility]-Cardiac Rehab Work Phone: Start: 12-10-2023 End: 12-10-2023 Subsequent hospital visit by physician Daniela [facility] Work Phone: Radiology Comment on above: Chronic midline low back pain without sciatica [M54.50, G89.29] Start: 11-15-2023 End: 11-18-2023 ambulatory [facility] Work Phone: Start: 11-15-2023 End: 11-18-2023 Discharged Recurring [facility]-Cardiac Rehab Work Phone: Start: 10-18-2023 End: 10-18-[address] Rishi Vasquez Work Phone: [facility] Work Phone: Start: 10-18-2023 End: 10-18-[address] Rishi Vasquez Work Phone: [facility]-Cardiac Rehab Work Phone: Start: 10-03-2023 Refill Rishi contreras DO Work Phone: [facility] Comment on above: Refill Request Start: 09-18-2023 End: 09-18-[address] Rishi Vasquez Work Phone: [facility] Work Phone: Start: 09-18-2023 End: 09-18-[address] Rishi Vasquez Work Phone: [facility]-Cardiac Rehab Work Phone: Start: 09-13-[address] Jim Vasquez Work Phone: [facility]-Cardiac Rehab Work Phone: Start: 08-31-2023 End: 08-31-2023 ambulatory [facility] [place] Work Phone: [facility] Start: 08-18-2023 Telephone encounter Rishi julian DO Work Phone: [facility] Comment on above: Results Start: 08-16-2023 End: 08-16-[address] Rishi Vasquez Work Phone: [facility]-Laboratory Work Phone: Start: 08-16-2023 End: 08-18-[address] Rishi Vasquez Work Phone: [facility] Work Phone: Start: 08-16-2023 End: 08-18-[address] Rishi Vasquez Work Phone: [facility]-Cardiac Rehab Work Phone: Start: 07-31-2023 Telephone encounter Rishi julian DO Work Phone: [facility] Comment on above: Results Start: 07-31-[address] Jim Vasqeuz Work Phone: [facility]-Cardiac Rehab Work Phone: Start: 07-26-2023 End: 07-26-[address] Rishi Vasquez Work Phone: [facility] Work Phone: Start: 07-26-2023 End: 07-26-[address] Rishi Vasquez Work Phone: [facility]-Laboratory, Specimen Work Phone: Start: 07-19-2023 End: 07-19-[address] Rishi Vasquez Work Phone: [facility] Work Phone: Start: 07-19-2023 End: 07-19-[address] Rishi Vasquez Work Phone: [facility]-Cardiac Rehab Work Phone: Start: 07-10-2023 Telephone encounter Danyelle allen PA-C Work Phone: [facility] Comment on above: Results Start: 07-10-2023 End: 07-10-2023 Subsequent hospital visit by physician Diagnostic Mammo [facility] Comment on above: Abnormal mammogram [ R92.8] Start: 07-03-2023 End: 07-03-[address] Rishi Vasquez Work Phone: [facility] Work Phone: Start: 06-14-2023 End: 06-18-[address] Rishi Vasquez Work Phone: [facility] Work Phone: Start: 06-14-2023 End: 06-18-[address] Rishi Vasquez Work Phone: [facility]-Cardiac Rehab Work Phone: Start: 06-14-[address] Jim Vasquez Work Phone: [facility]-Cardiac Rehab Work Phone: Start: 06-12-2023 Non-patient / Non-visit Dr. Marcie Vasquez Work Phone: [facility] Start: 06-12-2023 End: 06-12-[address] Rishi Vasquez Work Phone: [facility] Work Phone: Start: 06-12-2023 End: 06-12-[address] Rishi Vasquez Work Phone: [facility]-Cardiovascul ar Services Work Phone: Start: 06-04-2023 End: 06-04-2023 Patient encounter procedure Rishi Vasquez DO Work Phone: [facility] Comment on above: Dysuria (Primary Dx) ; Acute cystitis with hematuria; Peripheral vascular occlusive disease (HCC); 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); CKD stage G3b/A1, GFR 30-44 and albumin creatinine ratio <30 mg/g (HCC); Dyslipidemia (high LDL; low HDL); Vitamin D deficiency; Multinodular thyroid; Essential hypertension; Arthritis, multiple joint involvement Start: 05-29-2023 Documentation procedure Mammog rain Coordinator [facility] Start: 05-29-2023 Letter encounter Mammography Coordinator [facility] Start: 05-29-2023 Telephone encounter Danyelle allen PA-C Work Phone: [facility] Comment on above: Results Start: 05-29-2023 End: 05-29-2023 Subsequent hospital visit by physician Screen Mammo [facility] Comment on above: Encounter for screen ing mammogram for malignant neoplasm of breast [Z12.31] Start: 05-27-2023 Refill Rishi contreras DO Work Phone: [facility] Comment on above: Refill Request Start: 05-17-2023 End: 05-18-[address] Rishi Vasquez Work Phone: [facility] Work Phone: Start: 05-17-2023 End: 05-18-[address] Rishi Vasquez Work Phone: [facility] Work Phone: Start: 04-20-2023 End: 04-20-[address] Rsihi Vasquez Work Phone: [facility] Work Phone: Start: 04-17-2023 End: 04-18-2023 ambulatory [facility] Work Phone: Start: 04-17-2023 End: 04-18-2023 Discharged Recurring [facility] Start: 03-15-2023 End: 03-18-2023 ambulatory [facility] Work Phone: Start: 03-15-2023 End: 03-18-2023 Discharged Recurring [facility] Start: 03-12-2023 Telephone encounter Rishi julian DO Work Phone: [facility] Comment on above: Release Of Medical R ecords Start: 02-27-2023 ambulatory Rishi contreras DO Work Phone: Internal Medicine [facility] Start: 02-15-2023 End: 02-16-[address] Rishi Vasquez Work Phone: [facility] Work Phone: Start: 02-15-2023 End: 02-16-[address] Rishi Vasquez Work Phone: [facility] Start: 02-05-2023 ambulatory Rishi contreras DO Work Phone: [facility] Comment on above: MAMOGRAM Start: 01-22-2023 Telephone encounter Rishi julian DO Work Phone: [facility] Comment on above: Appointment; Phuong VYAS Start: 01-16-2023 End: 01-16-[address] Rishi Vasquez Work Phone: [facility] Work Phone: Start: 01-16-2023 End: 01-16-[address] Rishi Vasquez Work Phone: [facility] Start: 01-08-2023 Refill Clary Andres YAEL Work Phone: [facility] Comment on above: Refill Request Start: 01-04-2023 Telephone encounter Rishi julian DO Work Phone: [facility] Comment on above: Results Start: 12-29-2022 End: 12-29-2022 Subsequent hospital visit by physician [facility] Work Phone: Nuclear Medicine Comment on above: Abnormal thyroid fun ction test [R94.6] Start: 12-28-2022 End: 12-28-2022 Subsequent hospital visit by physician [facility] Work Phone: Nuclear Medicine Comment on above: Abnormal thyroid fun ction test [R94.6] Start: 12-26-2022 Telephone encounter Rishi julian DO Work Phone: [facility] Comment on above: Results Start: 12-20-2022 End: 12-20-2022 Subsequent hospital visit by physician [facility] Work Phone: Radiology Comment on above: Abnormal thyroid fun ction test [R94.6] Start: 12-19-2022 End: 12-19-[address] Rishi Vasquez Work Phone: [facility] Work Phone: Start: 12-19-2022 End: 12-19-[address] Rishi Vasquez Work Phone: [facility] Start: 12-07-2022 Telephone encounter Rishi julian DO Work Phone: [facility] Comment on above: testing question Start: 12-05-2022 End: 12-05-2022 Patient encounter procedure Rishi Vasquez DO Work Phone: [facility] [place] Comment on above: Diabetes mellitus ty pe 2 with peripheral artery disease (HCC) (Primary Dx); Peripheral vascular occlusive disease (HCC); Dyslipidemia (high LDL; low HDL); Essential hypertension; Dizziness; Carotid atherosclerosis, bilateral; Biceps rupture, proximal, left, initial encounter; Chronic kidney disease, stage 3a (HCC) Start: 11-16-2022 End: 11-18-[address] Rishi Vasquez Work Phone: [facility] Work Phone: Start: 11-16-2022 End: 11-18-[address] Rishi Vasquez Work Phone: [facility] Start: 11-02-[address] Jim Vasquez Work Phone: [facility] Start: 10-27-2022 Non-patient / Non-visit Dr. Marcie Vasquez Work Phone: [facility] Start: 10-27-2022 End: 10-27-[address] Rishi Vasquez Work Phone: [facility] Work Phone: Start: 10-27-2022 End: 10-27-[address] Rishi Vasquez Work Phone: [facility] Start: 10-17-2022 End: 10-18-[address] Rishi Vasquez Work Phone: [facility] Work Phone: Start: 10-17-2022 End: 10-18-[address] Rishi Vasquez Work Phone: [facility] Start: 09-23-2022 End: 09-23-2022 Patient encounter procedure Camille Mitchell PA-C Work Phone: [facility] Comment on above: Acute cystitis with hematuria (Primary Dx) Start: 09-14-2022 End: 09-18-[address] Rishi Vasquez Work Phone: [facility] Work Phone: Start: 09-14-2022 End: 09-18-[address] Rishi Vasquez Work Phone: [facility] Start: 09-09-2022 End: 09-09-2022 ambulatory [facility] [place] Work Phone: [facility] Comment on above: Arrived Start: 09-06-2022 Telephone encounter Rishi julian DO Work Phone: [facility] Comment on above: Results Start: 08-17-2022 End: 08-18-[address] Rishi Vasquez Work Phone: [facility] Work Phone: Start: 08-17-2022 End: 08-18-[address] Rishi Vasquez Work Phone: [facility] Start: 08-15-2022 End: 08-15-2022 Subsequent hospital visit by physician Daniela [facility] Work Phone: Radiology Comment on above: Injury of sternum, i nitial encounter [S29.9XXA] Start: 08-15-2022 End: 08-15-2022 Patient encounter procedure Camille Mitchell PA-C Work Phone: [facility] Comment on above: Injury of sternum, i nitial encounter (Primary Dx); Wrist injury, right, initial encounter Start: 08-08-2022 End: 08-08-[address] Rishi Vasquez Work Phone: [facility] Start: 07-18-2022 End: 07-19-[address] Rishi Vasquez Work Phone: [facility] Work Phone: Start: 07-18-2022 End: 07-19-[address] Rishi Vasquez Work Phone: [facility] Start: 06-29-2022 End: 06-29-[address] Rishi Vasquez Work Phone: [facility] Start: 06-22-2022 Non-patient / Non-visit Dr. Marcie Vasquez Work Phone: [facility] Start: 06-22-2022 End: 06-22-[address] Rishi Vasquez Work Phone: [facility] Start: 06-17-2022 End: 06-17-2022 Subsequent hospital visit by physician Xr [facility] Work Phone: Radiology Comment on above: Acute pain of right shoulder [M25.511] Start: 06-17-2022 End: 06-17-2022 Patient encounter procedure Kena Sims APRN.CNP Work Phone: [facility] Comment on above: Acute pain of right shoulder (Primary Dx) Start: 06-15-2022 End: 06-18-2022 Discharged Recurring [facility] Start: 06-05-2022 Documentation procedure Mammog rain Coordinator [facility] Start: 06-05-2022 Letter encounter Mammography Coordinator [facility] Start: 06-05-2022 Telephone encounter Dillon Cid APRN.CNP Work Phone: [facility] Comment on above: Results; Appointment Start: 06-05-2022 End: 06-05-2022 Subsequent hospital visit by physician Screen [facility]ammo [facility] Comment on above: Encounter for screen ing mammogram for malignant neoplasm of breast [Z12.31] Start: 05-31-2022 End: 05-31-2022 Patient encounter procedure Rishi Vasquez DO Work Phone: [facility] Comment on above: Diabetes mellitus ty pe 2 with peripheral artery disease (HCC) (Primary Dx); Peripheral vascular occlusive disease (HCC); Vitamin D deficiency; Stage 3 chronic kidney disease, unspecified whether stage 3a or 3b CKD (HCC); Essential hypertension; Dyslipidemia (high LDL; low HDL); Arthritis, multiple joint involvement; Coronary artery disease involving te-[place] heart, unspecified vessel or lesion type, unspecified whether angina present; Fatigue, unspecified type Start: 05-24-2022 Telephone encounter Rishi strangekris DO Work Phone: General Surgery Comment on above: Outpatient [place] [facility] Start: 05-18-2022 End: 05-18-2022 Discharged Recurring [facility] Start: 05-01-2022 Refill Rishi contreras DO Work Phone: [facility] Comment on above: Refill Request Start: 04-25-2022 ambulatory Rishi contreras DO Work Phone: [facility] Comment on above: BLOOD WORK Start: 04-21-2022 Refill Dillon mcclure SPIDER ASSEMBLER.AUTOMOTIVE BUYER Work Phone: [facility] Comment on above: Refill Request Start: 04-18-2022 End: 04-18-[address] [facility] Start: 03-22-2022 Refill Rishi contreras DO Work Phone: [facility] Comment on above: Refill Request Start: 03-16-2022 End: 03-18-[address] [facility] Start: 02-24-2022 Telephone encounter Dillon Cid APRNRonAUTOMOTIVE BUYER Work Phone: [facility] Comment on above: Results Start: 02-16-2022 End: 02-16-[address] [facility] Start: 02-07-2022 End: 02-07-[address] Rishi Vasquez Work Phone: [facility] Start: 01-20-2022 Non-patient / Non-visit Dr. Marcie Vasquez Work Phone: [facility] Start: 01-20-2022 End: 01-20-2022 Admission to same day surgery center Dr. Rishi Vasquez Work Phone: [facility] Start: 01-10-2022 End: 01-16-[address] Rishi Vasquez Work Phone: [facility] Start: 12-29-2021 End: 12-29-[address] Rishi Vasquez Work Phone: [facility] Start: 12-15-2021 End: 12-19-[address] Rishi Vasquez Work Phone: [facility] Start: 11-17-2021 End: 11-18-[address] Rishi Vasquez Work Phone: [facility] Procedures Date Procedure Procedure Detail Performing Clinician Start: 05-08-2025 Cardiovascular stres s test using pharmacologic stress agent Dr. Rishi Vasquez DO Work Phone: Start: 04-27-2025 US scan of thyroid Dr. Rishi Vasquez DO Work Phone: Start: 04-15-[address] Rishi Vasquez DO Work Phone: Start: 04-15-2025 Mean corpuscular hemoglobin concentration determination Dr. Rishi Vasquez DO Work Phone: Start: 04-15-2025 Platelet mean volume determination Dr. Rishi Vasquez DO Work Phone: Start: 03-19-2025 Measurement of occul t blood in stool specimen using immunoassay Dr. Rishi Vasquez DO Work Phone: Start: 03-19-2025 CT of abdominal aort a with contrast Dr. Rishi Vasquez DO Work Phone: Start: 03-19-2025 Blood count smear mc rscp w/mnl difrntl wbc count Dr. Rishi Vasquez DO Work Phone: Start: 03-19-[address] Rishi Vasquez DO Work Phone: Start: 03-19-2025 Mean corpuscular hemoglobin concentration determination Dr. Rishi Vasquez DO Work Phone: Start: 03-19-2025 Nucleated red blood cell count procedure Dr. Rishi Vasquez DO Work Phone: Start: 03-19-2025 Platelet mean volume determination Dr. Rishi Vasquez DO Work Phone: Start: 03-13-[address] Rishi Vasquez DO Work Phone: Start: 03-13-2025 Total cholesterol:HD L ratio measurement Dr. Rishi Vsaquez DO Work Phone: Start: 03-11-2025 Blood count smear rscp w/mnl difrntl wbc count Dr. Rishi Vasquez DO Work Phone: Start: 03-11-[address] Rishi Vasquez DO Work Phone: Start: 03-11-2025 Mean corpuscular hemoglobin concentration determination Dr. Rishi Vasquez DO Work Phone: Start: 03-11-2025 Nucleated red blood cell count procedure Dr. Rishi Vasquez DO Work Phone: Start: 03-11-2025 Platelet mean volume determination Dr. Rishi Vasquez DO Work Phone: Start: 03-09-2025 Complete ultrasound of kidneys and bladder Dr. Rishi Vasquez DO Work Phone: Start: 03-08-2025 Total iron binding capacity measurement Dr. Rishi Vasquez DO Work Phone: Comment on above: Test not performed Start: 03-07-2025 Urine microscopy: re d cells Dr. Rishi Vasquez DO Work Phone: Start: 03-07-2025 Urnls dip stick/tabl et reagent auto microscopy Dr. Rishi Vasquez DO Work Phone: Start: 03-07-2025 Plain chest X-ray Dr. Saud Vasquez DO Work Phone: Start: 03-07-2025 Serum inorganic [...] stick/tabl et rgnt auto w/o microscopy Rishi Vasquez DO Work Phone: Start: 05-29-2023 End: 05-29-2023 Mammography Clary Andres SPIDER ASSEMBLER.AUTOMOTIVE BUYER Work Phone: Start: 12-29-2022 Thyroid uptake w/blo od flow sngle/mult jamari natalia Rishi Vasquez DO Work Phone: Start: 12-20-2022 Us soft tissue head & neck real time imge docm Rishi Vasquez DO Work Phone: Start: 09-23-2022 Urnls dip stick/tabl et rgnt auto w/o microscopy Patel Aquino SPIDER ASSEMBLER.AUTOMOTIVE BUYER Work Phone: Start: 09-09-2022 INFLUENZA SEASONAL QUADRIVALENT HIGH DOSE AGE 65+ Rishi Vasquez DO Work Phone: Start: 08-15-2022 Radex wrist complete minimum 3 views Camille Chau Mitchell PA-Andrés Work Phone: Start: 06-17-2022 Radex shoulder compl ete minimum 2 views Kena Schrader SPIDER ASSEMBLER.AUTOMOTIVE BUYER Work Phone: Start: 06-05-2022 End: 06-05-2022 Screening mammography bi 2-view breast inc cad Rishi Vasquez DO Work Phone: Start: 05-31-2022 Hemoglobin A1c/Hemoglobin.total in Blood Rishi Vasquez DO Work Phone: Start: 01-20-2022 Colonoscopy [facility] SPIDER ASSEMBLER.AUTOMOTIVE BUYER Work Phone: Start: 06-10-2021 Mammography [facility] SPIDER ASSEMBLER.AUTOMOTIVE BUYER Work Phone: Start: 06-11-2017 End: 06-11-2017 TENZINN Brandon Ch MD Work Phone: Start: 06-11-2017 End: 06-11-2017 Follow Up Appt 6 months Brandon Ch MD Work Phone: Start: 06-11-2017 End: 06-11-2017 Dietary management education, guidance, and counseling Gaye Jasmine Start: 06-11-2017 End: 06-11-2017 DJN Brandon Ch MD Work Phone: Start: 06-11-2017 [...] [Mass/volume] in Serum or Plasma Rebekah Castrejon SPECIAL POPULATION PARAPROFESSIONAL Work Phone: Start: 02-06-2017 End: 02-07-2017 Triiodothyronine (T3) Free [Mass/volume] in Serum or Plasma Rebekah Castrejon NP Work Phone: Start: 02-06-2017 End: 02-06-2017 Dietary management education, guidance, and counseling Shaina Serna LPN Start: 02-06-2017 End: 02-07-2017 Thyroid stimulating hormone (TSH) Rebekah Castrejon NP Work Phone: Start: 02-06-2017 End: 02-08-2017 Thyroperoxidase antibody Rebekah Castrejon SPECIAL POPULATION PARAPROFESSIONAL Work Phone: Start: 02-06-2017 End: 02-07-2017 Thyroxine (T4) free Rebekah Castrejon SPECIAL POPULATION PARAPROFESSIONAL Work Phone: Start: 02-06-2017 End: 02-07-2017 Triiodothyronine (T3) free Rebekah Castrejon SPECIAL POPULATION PARAPROFESSIONAL Work Phone: Start: 01-08-2017 End: 01-15-2017 *BMP [...] High sensitivity method Marly Patino MD Start: 01-01-2017 End: 01-02-2017 Erythrocyte sedimentation rate Marly Patino MD Start: 01-01-2017 End: 01-02-2017 *CBC with Differential Marly Patino Start: 01-01-2017 End: 01-02-2017 C reactive protein (hsCRP) Marlyariela Patino Start: 01-01-2017 End: 01-02-2017 Erythrocyte sedimentation rate Marlyariela Patino Start: 12-20-2016 End: 12-20-2016 Radex foot complete minimum 3 views Marly Saud Patino Start: 12-20-2016 End: 12-20-2016 Colonoscopy Shaina Serna LPN Start: 12-20-2016 End: 12-20-2016 X-ray exam of foot Marly Patino Start: 12-18-2016 End: 12-20-2016 *CDIF - Clostridium Diff. Toxin Stool Marlyariela Patino Start: 12-18-2016 End: 12-20-2016 *CDIF - Clostridium Diff. Toxin Stool Marlyariela Patino Start: 12-13-2016 End: 12-15-2016 Radex foot complete minimum 3 views Marly Villavicencio Sukumar LUNDBERG Start: 12-13-2016 End: 12-15-2016 X-ray exam of foot Marly Patino Start: 12-05-2016 End: 12-05-2016 ISAC Ch MD [...] MD Work Phone: Start: 05-25-2015 End: 05-25-2015 ISAC [...] Surgery Brandon Ch MD Work Phone: Start: 01-04-2015 [...] 06-12-2014 End: 06-18-2014 24 hour holter monitor LILLIAM Rodriguez-C Work Phone: Start: 06-12-2014 End: 06-22-2014 Carotid duplex LILLIAM Rodriguez-C Work Phone: Start: 06-12-2014 End: 06-12-2014 Follow Up Appt Other YANG RodriguezC Work Phone: Start: 06-12-2014 End: 06-18-2014 24 hour holter monitor LILLIAM Rodriguez-C Work Phone: Start: 06-12-2014 End: 06-22-2014 Carotid duplex YANG RodriguezC Work Phone: Start: 06-12-2014 End: 06-12-2014 Follow [...] RSV Vaccine (1 - 1-dose 75+ series) [facility] Start: 01-20-2027 Colonoscopy COLONOSCOPY [facility] Start: 01-20-2027 COLORECTAL CANCER SCREENING COLORECTAL CANCER SCREENING [facility] Start: 01-20-2027 Screening for malignant neoplasm of colon [facility] Start: 04-30-2026 Annual PCP Team Chronic Disease Visit Annual PCP Team Chronic Disease Visit [facility] Start: 04-30-2026 Covid-19 Vaccine () Covid-19 Vaccine () [facility] Comment on above: Postponed from 07/20/2024 (Declined at t his time) Start: 04-30-2026 Shingrix Vaccine (1 of 2) Shingrix Vaccine (1 of 2) [facility] Comment on above: Postponed from 2002 (Declined at t his time) Start: 04-30-2026 Urine microalbumin profile DTaP,Tdap,Td Vaccine (2 - Td or Tdap) [facility] Comment on above: Postponed from 04/24/2023 (Declined at t his time) Start: 03-27-2026 Annual PCP Team Chronic Disease Visit Annual PCP Team Chronic Disease Visit [facility] Start: 12-05-2025 Annual PCP Team Chronic Disease Visit Annual PCP Team Chronic Disease Visit [facility] Start: 12-05-2025 BP Controlled (<130/80) BP Controlled (<130/80) [facility] Start: 12-01-2025 Complete blood count Hemoglobin/Hematocrit [facility] Start: 12-01-2025 Creatinine measurement Serum Creatinine [facility] Start: 12-01-2025 Hepatitis B surface antibody level LDL Cholesterol [facility] Start: 06-16-2025 End: 06-16-2025 Patient encounter procedure 06/16/2025 12:00 PM EDT Office Visit [facility] [address] [place] [address] Rishi Vasquez DO [address] [place] [address] LVM 1st attempt Physical [facility] Comment on above: LVM 1st attempt Physical Start: 06-09-2025 End: 06-09-2025 Patient encounter procedure 06/09/2025 9:00 AM EDT Office Visit [facility] [place] [address] [place] [address] Rishi Vasquez, [address] [place] [address] Physical [facility] Comment on above: Physical Start: 06-08-2025 End: 06-08-2025 ambulatory 06/08/2025 8:30 AM EDT Results Only [facility] [address] [place] [address] [facility] Start: 06-04-2025 Annual PCP Team Chronic Disease Visit Annual PCP Team Chronic Disease Visit [facility] Start: 06-04-2025 BP Controlled (<130/80) BP Controlled (<130/80) [facility] Start: 06-04-2025 End: 06-04-2025 Patient encounter procedure 06/04/2025 9:30 AM EDT Appointment Mammogram [address] [address] Encounter for screening mammogram for malignant neoplasm of breast [Z12.31] Mammogram Comment on above: Encounter for screening mammogram for ma lignant neoplasm of breast [Z12.31] Start: 06-03-2025 Screening for malignant neoplasm of breast Mammogram Screening [facility] Start: 06-02-2025 Glaucoma screening Dilated Retinal Exam [facility] Start: 05-31-2025 Hemoglobin A1c measurement HbA1C [facility] Start: 05-30-2025 Complete blood count Hemoglobin/Hematocrit [facility] Start: 05-30-2025 Creatinine measurement Serum Creatinine [facility] Start: 05-30-2025 Hepatitis B surface antibody level LDL Cholesterol [facility] Start: 04-15-2025 Patient discharge [facility] Start: 04-02-2025 Diabetic foot examination Diabetic Foot Exam [facility] Start: 03-27-2025 End: 03-27-2025 Patient encounter procedure 03/27/2025 10:00 AM EDT Office Visit Family [facility] [address] [place] [address] PodYumiko bazzi APRN.AUTOMOTIVE BUYER [address] [place] [address] Discharged 03/20/25 [facility] - Adult failure to thrive, falls, rabdo (no availability within recommended one week F/U with PCP dyad) [facility] [place] Comment on above: Discharged 03/20/25 [facility] - Adult failure to thrive, falls, rabdo (no availability within recommended one week F/U with PCP dyad) Start: 03-20-2025 Patient discharge [facility] Start: 03-19-2025 Developing a treatment plan [facility] Start: 03-19-2025 Development of care plan [facility] Start: 03-19-2025 End: 03-19-2025 [facility] Start: 03-19-2025 End: 03-19-2025 Administration of blood product [facility] Start: 03-18-2025 Referral to service [facility] Start: 03-17-2025 [facility] Start: 03-12-2025 Application of intermittent pneumatic compression device [facility] Start: 03-12-2025 Development of care plan [facility] Start: 03-12-2025 Developing a treatment plan [facility] Start: 03-11-2025 Consultation [facility] Start: 03-11-2025 Referral to movie stunt performer [facility] Start: 03-11-2025 Referral to vascular surgeon [facility] Start: 03-11-2025 Contact precautions [facility] Start: 03-11-2025 Wound care [facility] Start: 03-11-2025 Admission procedure [facility] Start: 03-11-2025 Introduction of urinary catheter [facility] Start: 03-11-2025 Measuring intake and output [facility] Start: 03-11-2025 Patient referral to dietitian [facility] Start: 03-11-2025 Referral to occupational therapist [facility] Start: 03-11-2025 Referral to service [facility] Start: 03-11-2025 Vital signs measurements [facility] Start: 03-11-2025 [facility] Start: 03-11-2025 End: 03-11-2025 Consultation for treatment [facility] Start: 03-11-2025 Following clinical pathway protocol [facility] Start: 03-11-2025 Patient discharge [facility] Start: 03-10-2025 Consultation [facility] Start: 03-08-2025 [facility] Start: 03-08-2025 Consultation [facility] Start: 03-08-2025 Referral to twister frame tender [facility] Start: 03-08-2025 [facility] Start: 03-08-2025 Referral to vascular surgeon [facility] Start: 03-08-2025 Application of intermittent pneumatic compression device [facility] Start: 03-07-2025 Following clinical pathway protocol [facility] Start: 03-07-2025 Assessment of risk of venous thromboembolism [facility] Start: 03-07-2025 Care regimes management [facility] Start: 03-07-2025 Consultation for treatment [facility] Start: 03-07-2025 Elevation of affected extremity [facility] Start: 03-07-2025 Fall prevention [facility] Start: 03-07-2025 Insertion of catheter into peripheral vein [facility] Start: 03-07-2025 Introduction of urinary catheter [facility] Start: 03-07-2025 Measuring intake and output [facility] Start: 03-07-[address] [facility] Start: 03-07-2025 Patient referral to dietitian [facility] Start: 03-07-2025 Providing care according to standard [facility] Start: 03-07-2025 Provision of activity privileges [facility] [facility] Start[facility] 03-07-2025 Referral to occupational therapist [facility] Start: 03-07-2025 Referral to movie stunt performer [facility] Start: 03-07-2025 Referral to service [facility] Start: 03-07-2025 Wound care [facility] Start: 03-07-2025 End: 03-07-2025 [facility] Start: 03-07-2025 Admission procedure [facility] Start: 03-07-2025 Hospital admission, emergency, from emergency room, medical nature [facility] Start: 03-07-2025 End: 03-07-2025 [facility] Start: 03-07-2025 Bacteria identified in Urine by Culture Urine Culture [facility] Start: 03-07-2025 [facility] Start: 02-26-2025 Anaerobic microbial culture Anaerobic Culture [facility] Start: 02-26-2025 Source specific culture [facility] Start: 02-16-2025 [facility] Start: 02-16-2025 Microbial culture, routine Wound Culture [facility] Start: 02-16-2025 Microscopic observation [Identifier] in Unspecified specimen by Gram stain [facility] Start: 02-16-2025 Wound Culture Wound Culture [facility] Start: 12-05-2024 End: 03-06-2025 25-hydroxyvitamin D3 [Mass/volume] in Serum or Plasma VITAMIN D 25 HYDROXY Lab Routine Vitamin D deficiency Expected: 12/05/2024, Expires: 03/06/2025 [facility] Comment on above: Expected: 12/05/2024, Expires: Start: 12-05-2024 Annual PCP Team Chronic Disease Visit Annual PCP Team Chronic Disease Visit [facility] Start: 12-05-2024 End: 03-06-2025 CBC panel - Blood by Automated count COMPLETE BLOOD COUNT Lab Routine Peripheral vascular occlusive disease (HCC) Expected: 12/05/2024, Expires: 03/06/2025 [facility] Comment on above: Expected: 12/05/2024, Expires: Start: 12-05-2024 End: 03-06-2025 Cobalamin (Vitamin B12) [Mass/volume] in Serum or Plasma VITAMIN B12 Lab Routine 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) Expected: 12/05/2024, Expires: 03/06/2025 [facility] Comment on above: Expected: 12/05/2024, Expires: Start: 12-05-2024 End: 03-06-2025 Comprehensive metabolic 2000 panel - Serum or Plasma COMPREHENSIVE METABOLIC PANEL Lab Routine 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) Expected: 12/05/2024, Expires: 03/06/2025 [facility] Comment on above: Expected: 12/05/2024, Expires: Start: 12-05-2024 End: 03-06-2025 Hemoglobin A1c in Blood HEMOGLOBIN A1C Lab Routine 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) Expected: 12/05/2024, Expires: 03/06/2025 [facility] Work Phone: Comment on above: Expected: 12/05/2024, Expires: Start: 12-05-2024 End: 03-06-2025 Lipid 1996 panel - Serum or Plasma LIPID PANEL BASIC Lab Routine Dyslipidemia (high LDL; low HDL) Expected: 12/05/2024, Expires: 03/06/2025 [facility] Comment on above: Expected: 12/05/2024, Expires: Start: 12-05-2024 End: 03-06-2025 Thyrotropin [Units/volume] in Serum or Plasma THYROID STIMULATING HORMONE Lab Routine Multiple thyroid nodules Expected: 12/05/2024, Expires: 03/06/2025 [facility] Comment on above: Expected: 12/05/2024, Expires: Start: 12-05-2024 End: 03-06-2025 Thyroxine (T4) free [Mass/volume] in Serum or Plasma T4 FREE/FREE THYROXINE Lab Routine Multiple thyroid nodules Expected: 12/05/2024, Expires: 03/06/2025 [facility] Comment on above: Expected: 12/05/2024, Expires: Start: 12-05-2024 End: 12-05-2024 Patient encounter procedure 12/05/2024 9:00 AM EST Office Visit [facility] [address] [place] [address] Rishi Vasquez DO [address] [place] [address] 6 month follow up [facility] Comment on above: 6 month follow up Start: 11-30-2024 Complete blood count Hemoglobin/Hematocrit [facility] Start: 01-12-2025 Creatinine measurement Serum Creatinine [facility] Start: 11-30-2024 Hemoglobin A1c measurement HbA1C [facility] Start: 11-30-2024 Hepatitis B surface antibody level LDL Cholesterol [facility] Start: 11-19-2024 Medicare Advantage Annual Wellness Visit Medicare Advantage Annual Wellness Visit [facility] Start: 11-15-2024 Glaucoma screening Dilated Retinal Exam [facility] Start: 09-05-2024 End: 09-05-2024 Patient encounter procedure 09/05/2024 9:20 AM EDT Immunization [facility] [address] [place] [address] [place] Nurse [address] [place] [address] FLU SHOT [facility] Comment on above: FLU SHOT Start: 07-20-2024 Covid-19 Vaccine ( season) Covid-19 Vaccine ( season) [facility] Start: 07-20-2024 Covid-19 Vaccine () Covid-19 Vaccine () [facility] Start: 07-20-2024 Influenza vaccination Influenza Vaccine (#1) [facility] Start: 06-04-2024 3 comp foot exam completed DIABETIC FOOT EXAM [facility] Start: 06-04-2024 ANNUAL PCP TEAM CHRONIC DISEASE VISIT ANNUAL PCP TEAM CHRONIC DISEASE VISIT [facility] Start: 06-04-2024 BP CONTROLLED (<130/80) BP CONTROLLED (<130/80) [facility] Start: 06-04-2024 Diabetic foot examination Diabetic Foot Exam [facility] Start: 06-04-2024 End: 06-04-2024 Patient encounter procedure 06/04/2024 9:40 AM EDT Office Visit [facility] [address] [place] [address] Rishi Vasquez DO [address] [place] [address] 6 month follow up [facility] Comment on above: 6 month follow up Start: 06-03-2024 End: 06-03-2024 Patient encounter procedure 06/03/2024 9:30 AM EDT Appointment Mammogram [address] [place] [address] Encounter for screening mammogram for malignant neoplasm of breast [Z12.31] Mammogram Comment on above: Encounter for screening mammogram for ma lignant neoplasm of breast [Z12.31] Start: 05-30-2024 End: 08-29-2024 25-hydroxyvitamin D3 [Mass/volume] in Serum or Plasma VITAMIN D 25 HYDROXY Lab Routine Vitamin D deficiency Expected: 05/30/2024 (Approximate), Expires: 08/29/2024 [facility] Comment on above: Expected: 05/30/2024 (Approximate), Expi res: 08/29/2024 Start: 05-30-2024 End: 08-29-2024 CBC W Auto Differential panel - Blood COMPLETE BLOOD COUNT AND DIFFERENTIAL Lab Routine Essential hypertension Fatigue, unspecified type Expected: 05/30/2024 (Approximate), Expires: 08/29/2024 [facility] Comment on above: Expected: 05/30/2024 (Approximate), Expi res: 08/29/2024 Start: 05-30-2024 End: 08-29-2024 Comprehensive metabolic 2000 panel - Serum or Plasma COMPREHENSIVE METABOLIC PANEL Lab Routine Essential hypertension 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) CKD stage G3b/A1, GFR 30-44 and albumin creatinine ratio <30 mg/g (HCC) Dyslipidemia (high LDL; low HDL) Expected: 05/30/2024 (Approximate), Expires: 08/29/2024 [facility] Comment on above: Expected: 05/30/2024 (Approximate), Expi res: 08/29/2024 Start: 05-30-2024 End: 08-29-2024 Hemoglobin A1c in Blood HEMOGLOBIN A1C Lab Routine 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) Expected: 05/30/2024 (Approximate), Expires: 08/29/2024 [facility] Comment on above: Expected: 05/30/2024 (Approximate), Expi res: 08/29/2024 Start: 05-30-2024 Hemoglobin A1c measurement HbA1C [facility] Start: 05-30-2024 HEMOGLOBIN/HEMATOCRIT HEMOGLOBIN/HEMATOCRIT [facility] Start: 05-30-2024 Hepatitis B screening URINE ALBUMIN:CREATININE RATIO [facility] Start: 05-30-2024 Hepatitis B surface antibody level LDL CHOLESTEROL [facility] Start: 05-30-2024 End: 08-29-2024 Lipid 1996 panel - Serum or Plasma LIPID PANEL BASIC Lab Routine Essential hypertension 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) Dyslipidemia (high LDL; low HDL) Expected: 05/30/2024 (Approximate), Expires: 08/29/2024 [facility] Work Phone: Comment on above: Expected: 05/30/2024 (Approximate), Expi res: 08/29/2024 Start: 05-30-2024 SERUM CREATININE SERUM CREATININE [facility] Start: 05-30-2024 End: 08-29-2024 Thyrotropin [Units/volume] in Serum or Plasma THYROID STIMULATING HORMONE Lab Routine Multiple thyroid nodules Low TSH level Fatigue, unspecified type Expected: 05/30/2024 (Approximate), Expires: 08/29/2024 [facility] Comment on above: Expected: 05/30/2024 (Approximate), Expi res: 08/29/2024 Start: 05-30-2024 End: 08-29-2024 Thyroxine (T4) free [Mass/volume] in Serum or Plasma T4 FREE/FREE THYROXINE Lab Routine Multiple thyroid nodules Low TSH level Fatigue, unspecified type Expected: 05/30/2024 (Approximate), Expires: 08/29/2024 [facility] Comment on above: Expected: 05/30/2024 (Approximate), Expi res: 08/29/2024 Start: 05-30-2024 End: 08-29-2024 Triiodothyronine (T3) Free [Mass/volume] in Serum or Plasma T3, FREE Lab Routine Multiple thyroid nodules Low TSH level Fatigue, unspecified type Expected: 05/30/2024 (Approximate), Expires: 08/29/2024 [facility] Comment on above: Expected: 05/30/2024 (Approximate), Expi res: 08/29/2024 Start: 05-30-2024 End: 05-30-2024 ambulatory 05/30/2024 8:00 AM EDT Results Only [facility] Station [address] [place] [address] [facility] Start: 07-11-2024 Mammography [facility] Start: 05-29-2024 Screening for malignant neoplasm of breast Mammogram Screening [facility] Start: 04-16-2024 End: 04-16-2024 ambulatory 04/16/2024 4:45 PM EDT OT/PT/Speech Visit [facility] [address] [place] [address] Anselmo Marr, PT [address] [place] [address] test [facility] Comment on above: test Start: 03-25-2024 End: 03-25-2024 ambulatory 03/25/2024 9:30 AM EDT OT/PT/Speech Visit [facility] [address] [place] [address] Keisha Guzman, UNIX MANAGER [address] [place] [address] M54.50,G89.29 (ICD-10-CM) - Chronic midline low back pain without sciatica [facility] Comment on above: M54.50,G89.29 (ICD-10-CM) - Chronic midl ine low back pain without sciatica Start: 03-20-2024 End: 03-20-2024 ambulatory 03/20/2024 10:00 AM EDT OT/PT/Speech Visit [facility] [address] [place] [address] Anselmo Marr, PT [address] [place] [address] M54.50,G89.29 (ICD-10-CM) - Chronic midline low back pain without sciatica [facility] Comment on above: M54.50,G89.29 (ICD-10-CM) - Chronic midl ine low back pain without sciatica Start: 12-14-2023 HEMOGLOBIN/HEMATOCRIT HEMOGLOBIN/HEMATOCRIT [facility] Start: 12-14-2023 SERUM CREATININE SERUM CREATININE [facility] Start: 12-05-2023 ANNUAL PCP TEAM CHRONIC DISEASE VISIT ANNUAL PCP TEAM CHRONIC DISEASE VISIT [facility] Start: 12-05-2023 BP CONTROLLED (<130/80) BP CONTROLLED (<130/80) [facility] Start: 11-30-2023 Hemoglobin A1c/Hemoglobin.total in Blood HBA1C [facility] Start: 08-31-2023 HEMOGLOBIN/HEMATOCRIT HEMOGLOBIN/HEMATOCRIT [facility] Start: 08-31-2023 Hepatitis B surface antibody level LDL CHOLESTEROL [facility] Start: 08-31-2023 SERUM CREATININE SERUM CREATININE [facility] Start: 08-16-2023 Anaerobic Culture Anaerobic Culture [facility] Start: 07-20-2023 Covid-19 Vaccine () Covid-19 Vaccine () [facility] Start: 07-20-2023 Influenza vaccination [facility] Start: 06-13-2023 Hemoglobin A1c/Hemoglobin.total in Blood HBA1C [facility] Start: 06-05-2023 Mammography MAMMOGRAM [facility] Start: 06-04-2023 End: 08-04-2023 Bacteria identified in Urine by Culture [facility] Work Phone: Comment on above: Expected: 06/04/2023, Expires: Start: 05-31-2023 ANNUAL PCP TEAM CHRONIC DISEASE VISIT ANNUAL PCP TEAM CHRONIC DISEASE VISIT [facility] Start: 05-31-2023 BP CONTROLLED (<130/80) BP CONTROLLED (<130/80) [facility] Start: 05-16-2023 3 comp foot exam completed DIABETIC FOOT EXAM [facility] Start: 05-08-2023 Hepatitis C antibody, confirmatory test DILATED RETINAL EXAM [facility] Start: 04-24-2023 Urine microalbumin profile [facility] Start: 03-07-2023 SERUM CREATININE SERUM CREATININE [facility] Start: 03-01-2023 Hemoglobin A1c/Hemoglobin.total in Blood HBA1C [facility] Start: 02-27-2023 End: 04-29-2023 ALBUMIN/CREAT RATIO RND UR ALBUMIN/CREAT RATIO RND UR Lab Routine 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) Expected: 02/27/2023, Expires: 04/29/2023 [facility] Work Phone: Comment on above: Expected: 02/27/2023, Expires: 3 Start: 02-23-2023 HEMOGLOBIN/HEMATOCRIT HEMOGLOBIN/HEMATOCRIT [facility] Start: 02-23-2023 Hepatitis B surface antibody level LDL CHOLESTEROL [facility] Start: 12-05-2022 End: 02-04-2023 CBC W Auto Differential panel - Blood CBC + DIFF Lab Routine Dizziness Biceps rupture, proximal, left, initial encounter Expected: 12/05/2022, Expires: 02/04/2023 [facility] Work Phone: Comment on above: Expected: 12/05/2022, Expires: 3 Start: 12-05-2022 End: 02-04-2023 Comprehensive metabolic 2000 panel - Serum or Plasma COMP METABOLIC PANEL Lab Routine Dizziness Biceps rupture, proximal, left, initial encounter Expected: 12/05/2022, Expires: 02/04/2023 [facility] Work Phone: Comment on above: Expected: 12/05/2022, Expires: 3 Start: 12-05-2022 End: 02-04-2023 Creatine kinase [Enzymatic activity/volume] in Serum or Plasma CK CREATINE KINASE Lab Routine Dizziness Biceps rupture, proximal, left, initial encounter Expected: 12/05/2022, Expires: 02/04/2023 [facility] Work Phone: Comment on above: Expected: 12/05/2022, Expires: 3 Start: 12-05-2022 End: 02-04-2023 Hemoglobin A1c in Blood HGB A1C Lab Routine 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) Expected: 12/05/2022, Expires: 02/04/2023 [facility] Work Phone: Comment on above: Expected: 12/05/2022, Expires: 3 Start: 12-05-2022 End: 02-04-2023 Magnesium [Mass/volume] in Serum or Plasma MAGNESIUM BLD Lab Routine Dizziness Biceps rupture, proximal, left, initial encounter Expected: 12/05/2022, Expires: 02/04/2023 [facility] Work Phone: Comment on above: Expected: 12/05/2022, Expires: 3 Start: 12-05-2022 End: 02-04-2023 Thyrotropin [Units/volume] in Serum or Plasma TSH BLD Lab Routine Dizziness Expected: 12/05/2022, Expires: 02/04/2023 [facility] Work Phone: Comment on above: Expected: 12/05/2022, Expires: 3 Start: 12-05-2022 End: 02-04-2023 Thyroxine (T4) free [Mass/volume] in Serum or Plasma T4 FREE/FREE THYROX Lab Routine Dizziness Expected: 12/05/2022, Expires: 02/04/2023 [facility] Work Phone: Comment on above: Expected: 12/05/2022, Expires: 3 Start: 12-02-2022 ANNUAL PCP TEAM CHRONIC DISEASE VISIT ANNUAL PCP TEAM CHRONIC DISEASE VISIT [facility] Start: 12-01-2022 Hemoglobin A1c/Hemoglobin.total in Blood HBA1C [facility] Start: 11-28-2022 Hepatitis B screening URINE ALBUMIN:CREATININE RATIO [facility] Start: 10-07-2022 End: 12-07-2022 Thyrotropin [Units/volume] in Serum or Plasma TSH BLD Lab Routine Low TSH level Abnormal thyroid blood test Borderline abnormal thyroid function test Expected: 10/07/2022, Expires: 12/07/2022 [facility] Work Phone: Comment on above: Expected: 10/07/2022, Expires: 3 Start: 10-07-2022 End: 12-07-2022 Thyroxine (T4) free [Mass/volume] in Serum or Plasma T4 FREE/FREE THYROX Lab Routine Low TSH level Abnormal thyroid blood test Borderline abnormal thyroid function test Expected: 10/07/2022, Expires: 12/07/2022 [facility] Work Phone: Comment on above: Expected: 10/07/2022, Expires: 3 Start: 10-07-2022 End: 12-07-2022 Triiodothyronine (T3) Free [Mass/volume] in Serum or Plasma T3 FREE BLD Lab Routine Low TSH level Abnormal thyroid blood test Borderline abnormal thyroid function test Expected: 10/07/2022, Expires: 12/07/2022 [facility] Work Phone: Comment on above: Expected: 10/07/2022, Expires: 3 Start: 08-31-2022 End: 10-31-2022 25-hydroxyvitamin D3 [Mass/volume] in Serum or Plasma VITAMIN D 25 HYDROXY Lab Routine Vitamin D deficiency Expected: 08/31/2022, Expires: 10/31/2022 [facility] Work Phone: Comment on above: Expected: 08/31/2022, Expires: 2 Start: 08-31-2022 End: 10-31-2022 CBC panel - Blood by Automated count CBC Lab Routine 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) Stage 3 chronic kidney disease, unspecified whether stage 3a or 3b CKD (HCC) Essential hypertension Dyslipidemia (high LDL; low HDL) Expected: 08/31/2022, Expires: 10/31/2022 [facility] Work Phone: Comment on above: Expected: 08/31/2022, Expires: 2 Start: 08-31-2022 End: 10-31-2022 Cobalamin (Vitamin B12) [Mass/volume] in Serum or Plasma VITAMIN B12 BLOOD Lab Routine 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) Expected: 08/31/2022, Expires: 10/31/2022 [facility] Work Phone: Comment on above: Expected: 08/31/2022, Expires: 2 Start: 08-31-2022 End: 10-31-2022 Comprehensive metabolic 2000 panel - Serum or Plasma COMP METABOLIC PANEL Lab Routine 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) Expected: 08/31/2022, Expires: 10/31/2022 [facility] Work Phone: Comment on above: Expected: 08/31/2022, Expires: 2 Start: 08-31-2022 End: 10-31-2022 Hemoglobin A1c in Blood HGB A1C Lab Routine 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) Expected: 08/31/2022, Expires: 10/31/2022 [facility] Work Phone: Comment on above: Expected: 08/31/2022, Expires: 2 Start: 08-31-2022 End: 10-31-2022 Lipid 1996 panel - Serum or Plasma LIPID PANEL BASIC Lab Routine Dyslipidemia (high LDL; low HDL) Expected: 08/31/2022, Expires: 10/31/2022 [facility] Work Phone: Comment on above: Expected: 08/31/2022, Expires: 2 Start: 08-31-2022 End: 10-31-2022 Thyrotropin [Units/volume] in Serum or Plasma TSH BLD Lab Routine 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) Stage 3 chronic kidney disease, unspecified whether stage 3a or 3b CKD (HCC) Fatigue, unspecified type Expected: 08/31/2022, Expires: 10/31/2022 [facility] Work Phone: Comment on above: Expected: 08/31/2022, Expires: 2 Start: 08-25-2022 Hemoglobin A1c/Hemoglobin.total in Blood HBA1C [facility] Start: 07-20-2022 Influenza vaccination INFLUENZA (#1) [facility] Start: 07-14-2022 BP CONTROLLED (<130/80) BP CONTROLLED (<130/80) [facility] Start: 06-10-2022 Mammography MAMMOGRAM [facility] Start: 05-30-2022 3 comp foot exam completed DIABETIC FOOT EXAM [facility] Start: 04-26-2022 COVID-19 VACCINE (3 - Booster for Kellee series) COVID-19 VACCINE (3 - Booster for Kellee series) [facility] Start: 03-30-2022 Hepatitis C antibody, confirmatory test DILATED RETINAL EXAM [facility] Start: 02-21-2022 COVID-19 VACCINE (3 - Booster for Kellee series) COVID-19 VACCINE (3 - Booster for Kellee series) [facility] Start: 01-20-2022 Colonoscopy flx dx w/collj spec when pfrmd DIAGNOSTIC COLONOSCOPY [facility] Work Phone: Start: 11-19-2021 ADVANCE DIRECTIVE DISCUSSION ADVANCE DIRECTIVE DISCUSSION [facility] Start: 12-17-2017 End: 12-17-2017 Appointment Appointment [facility] Work Phone: Start: 08-30-2017 End: 08-30-2017 Appointment Appointment [facility] [place] [facility] Work Phone: Start: 06-11-2017 End: 06-11-2017 ISAC CHAU [facility] [place] [facility] Work Phone: Start: 06-11-2017 End: 06-11-2017 Follow Up Appt 6 months Follow Up Appt 6 months [facility] [place] [facility] Work Phone: Start: 06-11-2017 End: 06-11-2017 Appointment Appointment [facility] Work Phone: Start: 06-11-2017 End: 06-11-2017 ISAC CHAU [facility] Work Phone: Start: 06-11-2017 End: 06-11-2017 Follow Up Appt 6 months Follow Up Appt 6 months [facility] Work Phone: Start: 06-04-2017 End: 06-04-2017 Appointment Appointment [facility] Work Phone: Start: 05-04-2017 End: 05-04-2017 Thyroid stimulating hormone (TSH) *TSH [facility] [place] [facility] Work Phone: Start: 05-04-2017 End: 05-04-2017 Thyroxine (T4) free *T4 free [facility] [place] [facility] Work Phone: Start: 05-04-2017 End: 05-04-2017 Triiodothyronine (T3) free *T3-Free [facility] [place] [facility] Work Phone: Start: 05-04-2017 End: 05-04-2017 Thyroid stimulating hormone (TSH) *TSH [facility] Work Phone: Start: 05-04-2017 End: 05-04-2017 Thyroxine (T4) free *T4 free [facility] Work Phone: Start: 05-04-2017 End: 05-04-2017 Triiodothyronine (T3) free *T3-Free [facility] Work Phone: Start: 05-02-2017 End: 05-02-2017 *BMP *BMP [facility] Work Phone: Start: 05-02-2017 End: 05-02-2017 *CBC with Differential *CBC with Differential [facility] Work Phone: Start: 05-02-2017 End: 05-02-2017 Appointment Appointment [facility] Work Phone: Start: 05-02-2017 End: 05-02-2017 *BMP *BMP [facility] Work Phone: Start: 05-02-2017 End: 05-02-2017 *CBC with Differential *CBC with Differential [facility] Work Phone: Start: 04-23-2017 End: 04-23-2017 C reactive protein (hsCRP) *CRP - C-Reative Protein [facility] Work Phone: Start: 04-23-2017 End: 04-23-2017 Erythrocyte sedimentation rate *Sedimentation Rate (ESR) [facility] Work Phone: Start: 04-23-2017 End: 04-23-2017 C reactive protein (hsCRP) *CRP - C-Reative Protein [facility] Work Phone: Start: 04-23-2017 End: 04-23-2017 Erythrocyte sedimentation rate *Sedimentation Rate (ESR) [facility] Work Phone: Start: 02-19-2017 End: 02-21-2017 C reactive protein (hsCRP) *CRP - C-Reative Protein [facility] Work Phone: Start: 02-19-2017 End: 02-21-2017 Erythrocyte sedimentation rate *Sedimentation Rate (ESR) [facility] Work Phone: Start: 02-19-2017 End: 02-21-2017 C reactive protein (hsCRP) *CRP - C-Reative Protein [facility] Work Phone: Start: 02-19-2017 End: 02-21-2017 Erythrocyte sedimentation rate *Sedimentation Rate (ESR) [facility] Work Phone: Start: 02-06-2017 End: 02-07-2017 Thyroid stimulating hormone (TSH) *TSH [facility] [place] [facility] Work Phone: Start: 02-06-2017 End: 02-08-2017 Thyroperoxidase antibody *TPO Thyroid Peroxidase Antibodies [facility] Work Phone: Start: 02-06-2017 End: 02-07-2017 Thyroxine (T4) free *T4 free [facility] [place] [facility] Work Phone: Start: 02-06-2017 End: 02-07-2017 Triiodothyronine (T3) free *T3-Free [facility] [place] [facility] Work Phone: Start: 02-06-2017 End: 02-07-2017 Thyroid stimulating hormone (TSH) *TSH [facility] Work Phone: Start: 02-06-2017 End: 02-08-2017 Thyroperoxidase antibody *TPO Thyroid Peroxidase Antibodies [facility] Work Phone: Start: 02-06-2017 End: 02-07-2017 Thyroxine (T4) free *T4 free [facility] Work Phone: Start: 02-06-2017 End: 02-07-2017 Triiodothyronine (T3) free *T3-Free [facility] Work Phone: Start: 01-24-2017 End: 01-24-2017 Bacterica wound culture *Culture and Sensitivity, wound [facility] Work Phone: Start: 01-24-2017 End: 01-24-2017 Bacterica wound culture *Culture and Sensitivity, wound [facility] Work Phone: Start: 01-08-2017 End: 01-15-2017 *BMP *BMP [facility] Work Phone: Start: 01-08-2017 End: 01-15-2017 *CBC with Differential *CBC with Differential [facility] [facility] Work Phone: Start: 01-08-2017 End: 01-15-2017 C reactive protein (hsCRP) *CRP - C-Reative Protein [facility] Work Phone: Start: 01-08-2017 End: 01-15-2017 Erythrocyte sedimentation rate *Sedimentation Rate (ESR) [facility] Work Phone: Start: 01-08-2017 End: 01-15-2017 Mri lower extrem oth/thn jt w/o contr matrl MRI Non Joint Lower Extremity w/o [facility] Work Phone: Start: 01-08-2017 End: 01-15-2017 *BMP *BMP [facility] Work Phone: Start: 01-08-2017 End: 01-15-2017 *CBC with Differential *CBC with Differential [facility] Work Phone: Start: 01-08-2017 End: 01-15-2017 C reactive protein (hsCRP) *CRP - C-Reative Protein [facility] Work Phone: Start: 01-08-2017 End: 01-15-2017 Erythrocyte sedimentation rate *Sedimentation Rate (ESR) [facility] Work Phone: Start: 01-08-2017 End: 01-15-2017 Mri lower extremity w/o dye MRI Non Joint Lower Extremity w/o [facility] Work Phone: Start: 01-04-2017 End: 01-04-2017 *CBC with Differential *CBC with Differential [facility] Work Phone: Start: 01-04-2017 End: 01-04-2017 Bacterica wound culture *Culture and Sensitivity, wound [facility] Work Phone: Start: 01-04-2017 End: 01-04-2017 C reactive protein (hsCRP) *CRP - C-Reative Protein [facility] Work Phone: Start: 01-04-2017 End: 01-04-2017 Erythrocyte sedimentation rate *Sedimentation Rate (ESR) [facility] [facility] [employer] Work Phone: Start: 01-04-2017 End: 01-04-2017 MRSA presence *MRSAD - M R Staph Aureus DNA by PCR [facility] Work Phone: Start: 01-04-2017 End: 01-04-2017 Radex foot complete minimum 3 views X-Ray, Foot [facility] Work Phone: Start: 01-04-2017 End: 01-04-2017 *CBC with Differential *CBC with Differential [facility] Work Phone: Start: 01-04-2017 End: 01-04-2017 Bacterica wound culture *Culture and Sensitivity, wound [facility] Work Phone: Start: 01-04-2017 End: 01-04-2017 C reactive protein (hsCRP) *CRP - C-Reative Protein [facility] Work Phone: Start: 01-04-2017 End: 01-04-2017 Erythrocyte sedimentation rate *Sedimentation Rate (ESR) [facility] Work Phone: Start: 01-04-2017 End: 01-04-2017 MRSA presence *MRSAD - M R Staph Aureus DNA by PCR [facility] Work Phone: Start: 01-04-2017 End: 01-04-2017 X-ray exam of foot X-Ray, Foot [facility] Work Phone: Start: 01-01-2017 End: 01-02-2017 *CBC with Differential *CBC with Differential [facility] Work Phone: Start: 01-01-2017 End: 01-02-2017 C reactive protein (hsCRP) *CRP - C-Reative Protein [facility] in [facility] Work Phone: Start: 01-01-2017 End: 01-02-2017 Erythrocyte sedimentation rate *Sedimentation Rate (ESR) [facility] Work Phone: Start: 01-01-2017 End: 01-02-2017 *CBC with Differential *CBC with Differential [facility] Work Phone: Start: 01-01-2017 End: 01-02-2017 C reactive protein (hsCRP) *CRP - C-Reative Protein [facility] Work Phone: Start: 01-01-2017 End: 01-02-2017 Erythrocyte sedimentation rate *Sedimentation Rate (ESR) [facility] Work Phone: Start: 12-20-2016 End: 12-20-2016 Radex foot complete minimum 3 views X-Ray, Foot [facility] Work Phone: Start: 12-20-2016 End: 12-20-2016 X-ray exam of foot X-Ray, Foot [facility] Work Phone: Start: 12-18-2016 End: 12-20-2016 *CDIF - Clostridium Diff. Toxin Stool *CDIF - Clostridium Diff. Toxin Stool [facility] Work Phone: Start: 12-18-2016 End: 12-20-2016 *CDIF - Clostridium Diff. Toxin Stool *CDIF - Clostridium Diff. Toxin Stool [facility] Work Phone: Start: 12-13-2016 End: 12-15-2016 Radex foot complete minimum 3 views X-Ray, Foot [facility] Work Phone: Start: 12-13-2016 End: 12-15-2016 X-ray exam of foot X-Ray, Foot [facility] Work Phone: Start: 12-05-2016 End: 12-05-2016 ISAC CHAU [facility] Work Phone: Start: 12-05-2016 End: 12-05-2016 Follow Up Appt 6 months Follow Up Appt 6 months [facility] Work Phone: Start: 12-05-2016 End: 12-05-2016 ISAC CHAU [facility] Work Phone: Start: 12-05-2016 End: 12-05-2016 Follow Up Appt 6 months Follow Up Appt 6 months [facility] Work Phone: Start: 11-22-2016 End: 11-23-2016 *IGSUB IMMUN Subclas-IGG1,2,3 &4 *IGSUB IMMUN Subclas-IGG1,2,3 &4 [facility] Work Phone: Start: 11-22-2016 End: 11-29-2016 Debridement subcutaneous tissue 20 sq cm/< Debridement, subcutaneous tissue first 20 sq cm or less [facility] Work Phone: Start: 11-22-2016 End: 11-23-2016 *IGSUB IMMUN Subclas-IGG1,2,3 &4 *IGSUB IMMUN Subclas-IGG1,2,3 &4 [facility] Work Phone: Start: 11-22-2016 End: 11-29-2016 Dalila subq tissue 20 sq cm/< Debridement, subcutaneous tissue first 20 sq cm or less [facility] Work Phone: Start: 09-22-2016 End: 09-29-2016 Debridement subcutaneous tissue 20 sq cm/< Debridement, subcutaneous tissue first 20 sq cm or less [facility] Work Phone: Start: 09-22-2016 End: 09-29-2016 Dalila subq tissue 20 sq cm/< Debridement, subcutaneous tissue first 20 sq cm or less [facility] Work Phone: Start: 11-30-2015 End: 11-30-2015 ISAC CHAU [facility] Work Phone: Start: 11-30-2015 End: 11-30-2015 Follow Up Appt 1 year Follow Up Appt 1 year [facility] Work Phone: Start: 11-30-2015 End: 11-30-2015 ISAC DAVEN [facility] Work Phone: Start: 11-30-2015 End: 11-30-2015 Follow Up Appt 1 year Follow Up Appt 1 year [facility] Work Phone: Start: 05-25-2015 End: 05-25-2015 ISAC CHAU [facility] Work Phone: Start: 05-25-2015 End: 05-25-2015 Ecg routine ecg w/least 12 lds w/i&r EKG (In office) [facility] Work Phone: Start: 05-25-2015 End: 05-25-2015 Follow Up Appt 6 months Follow Up Appt 6 months [facility] Work Phone: Start: 05-25-2015 End: 05-25-2015 DJN ISAC [facility] Work Phone: Start: 05-25-2015 End: 05-25-2015 Electrocardiogram, complete EKG (In office) [facility] Work Phone: Start: 05-25-2015 End: 05-25-2015 Follow Up Appt 6 months Follow Up Appt 6 months [facility] Work Phone: Start: 01-04-2015 End: 01-04-2015 Vascular Surgery Vascular Surgery Kwaku Hurtadomax, [address], [address], [place], [address] [facility] Work Phone: Start: 01-04-2015 End: 01-04-2015 Vascular Surgery Vascular Surgery Kwaku Moscoso, [facility], [address] [place], [address] [facility] Work Phone: Start: 12-29-2014 End: 05-19-2015 *BMP *BMP [facility] Work Phone: Start: 12-29-2014 End: 12-29-2014 Ct angiography neck w/contrast/noncontrast CTA Neck [facility] Work Phone: Start: 12-29-2014 End: 12-29-2014 TENZINN TENZINN [facility] Work Phone: Start: 12-29-2014 End: 12-29-2014 Follow Up Appt 6 months Follow Up Appt 6 months [facility] Work Phone: Start: 12-29-2014 End: 05-19-2015 *BMP *BMP [facility] Work Phone: Start: 12-29-2014 End: 12-29-2014 Ct angiography, neck CTA Neck [facility] Work Phone: Start: 12-29-2014 End: 12-29-2014 ISAC CHAU [facility] Work Phone: Start: 12-29-2014 End: 12-29-2014 Follow Up Appt 6 months Follow Up Appt 6 months [facility] Work Phone: Start: 06-12-2014 End: 06-12-2014 24 hour holter monitor 24 hour holter monitor [facility] Work Phone: Start: 06-12-2014 End: 06-15-2014 Carotid duplex Carotid duplex [facility] Work Phone: Start: 06-12-2014 End: 06-12-2014 Follow Up Appt Other Follow Up Appt Other [facility] Work Phone: Start: 06-12-2014 End: 06-12-2014 24 hour holter monitor 24 hour holter monitor [facility] Work Phone: Start: 06-12-2014 End: 06-15-2014 Carotid duplex Carotid duplex [facility] Work Phone: Start: 06-12-2014 End: 06-12-2014 Follow Up Appt Other Follow Up Appt Other [facility] Work Phone: Start: 02-02-2014 End: 02-02-2014 Cardiac Rehab Cardiac Rehab [facility] Work Phone: Start: 02-02-2014 End: 02-02-2014 ISAC CHAU [facility] Work Phone: Start: 02-02-2014 End: 02-02-2014 Follow Up Appt 1 year Follow Up Appt 1 year [facility] Work Phone: Start: 02-02-2014 End: 02-02-2014 Cardiac Rehab Cardiac Rehab [facility] Work Phone: Start: 02-02-2014 End: 02-02-2014 ISAC CHAU [facility] Work Phone: Start: 02-02-2014 End: 02-02-2014 Follow Up Appt 1 year Follow Up Appt 1 year [facility] Work Phone: Start: 01-12-2014 End: 01-12-2014 *BMP *BMP [facility] Work Phone: Start: 01-12-2014 End: 01-12-2014 CBC W Auto Differential panel - Blood *CBC without Diff [facility] Work Phone: Start: 01-12-2014 End: 01-23-2014 Chest x-ray X-Ray, Chest, PA & Lateral [facility] [employer] Work Phone: Start: 01-12-2014 End: 01-12-2014 ISAC TENZINShruthi [facility] Work Phone: Start: 01-12-2014 End: 01-12-2014 Follow Up Appt 1 year Follow Up Appt 1 year [facility] Work Phone: Start: 01-12-2014 End: 01-12-2014 INR Coag RelTime (PPP) *PT/INR [facility] Work Phone: Start: 01-12-2014 End: 01-12-2014 Left Heart Cath Left Heart Cath [facility] Work Phone: Start: 01-12-2014 End: 01-12-2014 *BMP *BMP [facility] Work Phone: Start: 01-12-2014 End: 01-12-2014 CBC W Auto Differential panel - Blood *CBC without Diff [facility] Work Phone: Start: 01-12-2014 End: 01-23-2014 Chest x-ray X-Ray, Chest, PA & Lateral [facility] Work Phone: Start: 01-12-2014 End: 01-12-2014 Coagulation factor induced.INR assay in platelet poor plasma *PT/INR [facility] Work Phone: Start: 01-12-2014 End: 01-12-2014 DJN DJN [facility] Work Phone: Start: 01-12-2014 End: 01-12-2014 Follow Up Appt 1 year Follow Up Appt 1 year [facility] Work Phone: Start: 01-12-2014 End: 01-12-2014 Left Heart Cath Left Heart Cath [facility] Work Phone: Start: 2012 Hepatitis B Vaccine (1 of 3 - Risk 3-dose series) Hepatitis B Vaccine (1 of 3 - Risk 3-dose series) [facility] Start: 2012 RSV Vaccine (1 - 1-dose 60+ series) RSV Vaccine (1 - 1-dose 60+ series) [facility] Start: 2002 Influenza vaccination LUNG CANCER SCREENING [facility] Start: 2002 Screening for malignant neoplasm of lung Lung Cancer Screening [facility] Start: 2002 SHINGRIX VACCINE (1 of 2) SHINGRIX VACCINE (1 of 2) [facility] Start: 1997 COLOGUARD (FIT-DNA) COLOGUARD (FIT-DNA) [facility] Start: [address] COLONOGRAPHY [facility] Start: 1997 FECAL OCCULT BLOOD FECAL OCCULT BLOOD [facility] Start: 1997 Screening for malignant neoplasm of colon [facility] Start: 1997 SIGMOIDOSCOPY SIGMOIDOSCOPY [facility] Start: 1970 Anxiety Screening Anxiety Screening [facility] Bacteria identified in Unspecified specimen by Anaerobe culture [facility] Bacteria identified in Urine by Culture URINE CULTURE Microbiology Routine Acute cystitis with hematuria Ordered: 09/23/2022 [facility] Work Phone: Comment on above: Ordered: 09/23/2022 DBT Breast - bilater al screening ALEJANDRO SCREENING W BEN Radiology Routine Encounter for screening mammogram for malignant neoplasm of breast 06/03/2024 9:42 AM EDT [facility] Work Phone: End: 01-04-2026 DBT Breast - bilateral screening ALEJANDRO SCREENING W BEN Radiology Routine Encounter for screening mammogram for malignant neoplasm of breast 1 Occurrences starting 12/05/2024 until 01/04/2026 [facility] Work Phone: Comment on above: 1 Occurrences starting 12/05/2024 until 01/04/2026 End: 07-05-2023 Diagnostic mammography computer-aided detcj uni ALEJANDRO DIAGNOSTIC RT Radiology Routine Abnormal mammogram 1 Occurrences starting 06/05/2022 until 07/05/2023 [facility] Work Phone: Comment on above: 1 Occurrences starting 06/05/2022 until 07/05/2023 End: 06-27-2024 ALEJANDRO DIAGNOSTIC RIGHT ALEJANDRO DIAGNOSTIC RIGHT Radiology Routine Abnormal mammogram 1 Occurrences starting 05/29/2023 until 06/27/2024 [facility] Work Phone: Comment on above: 1 Occurrences starting 05/29/2023 until 06/27/2024 End: 03-06-2024 ALEJANDRO SCREENING ALEJANDRO SCREENING Radiology Routine Encounter for screening mammogram for malignant neoplasm of breast 1 Occurrences starting 02/07/2023 until 03/06/2024 [facility] Work Phone: Comment on above: 1 Occurrences starting 02/07/2023 until 03/06/2024 NM Heart Views W str ess and W radionuclide IV [facility] Patient Education [facility] Work Phone: Patient referral [facility] Work Phone: Urine culture [facility] End: 06-27-2024 US BREAST LTD RIGHT US BREAST LTD RIGHT Radiology Routine Abnormal mammogram 1 Occurrences starting 05/29/2023 until 06/27/2024 [facility] Work Phone: Comment on above: 1 Occurrences starting 05/29/2023 until 06/27/2024 End: 07-05-2023 Us breast uni real time with image limited US BREAST LTD RT Radiology Routine Abnormal mammogram 1 Occurrences starting 06/05/2022 until 07/05/2023 [facility] Work Phone: Comment on above: 1 Occurrences starting 06/05/2022 until 07/05/2023 US Carotid arteries [facility] Work Phone: US Carotid arteries [facility] US Carotid arteries [facility] US Carotid arteries [facility] End: 12-05-2023 US CAROTID ARTERIES [facility] US CAROTID ARTERIES [facility] Lab Routine Carotid atherosclerosis, bilateral 1 Occurrences starting 12/05/2022 until 12/05/2023 [facility] Work Phone: Comment on above: 1 Occurrences starting 12/05/2022 until 12/05/2023 Heart [facility] soft tissue head & neck real time imge docm US THYROID/PARATHYROID Radiology Routine Multiple thyroid nodules 12/20/2023 9:38 AM EST [facility] Work Phone: Wound microscopy, cu lture and sensitivities [facility] Immunizations Immunization Date Immunization Notes Care Provider Lisa marie 09-05-2024 influenza, high dose seasonal, preservative-free Immunization [place] Work Phone: [facility] 08-31-2023 influenza (HD-IIV4) vaccine, age 65+ yr, high dose, quadrivalent, PF (FLUZONE HIGH-DOSE) Immunization [place] Work Phone: [facility] Work Phone: 08-31-2023 influenza virus vaccine, unspecified formulation Rishi Vasquez DO Work Phone: [facility] 06-04-2023 pneumococcal (PCV20) vaccine, 20 valent (PREVNAR 20) Rishi Vasquez DO Work Phone: [facility] Work Phone: 06-04-2023 pneumococcal Conjuga te, unspecified formulation Rishi Taterison DO Work Phone: [facility] Work Phone: 09-09-2022 influenza, high-dose , quadrivalent vaccine (FLUZONE HIGH DOSE QUADRIVALENT) Immunization [place] Work Phone: [facility] 09-09-2022 influenza virus vaccine, unspecified formulation Rishi Vasquez DO Work Phone: [facility] 09-10-2021 influenza, high-dose , quadrivalent vaccine (FLUZONE HIGH DOSE QUADRIVALENT) 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 Work Phone: [facility] Work Phone: 09-10-2020 influenza, high-dose , quadrivalent vaccine (FLUZONE HIGH DOSE QUADRIVALENT) 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.[facility] Work Phone: [facility] Work Phone: 09-02-2019 influenza, high dose seasonal, preservative-free 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.[facility] Work Phone: [facility] Work Phone: 08-28-2018 influenza, high dose seasonal, preservative-free 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.[employer] Work Phone: [facility] Work Phone: 08-28-2018 pneumococcal polysaccharide vaccine, 23 valent Dillno Violeta [employer] ASSEM[employer] Work Phone: [facility] Work Phone: 09-07-2017 influenza, high dose seasonal, preservative-free 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.[employer] Work Phone: [facility] Work Phone: 09-01-2016 influenza, injectabl e, quadrivalent, preservative free Dr. Rishi Vasquez Work Phone: [facility] 09-01-2016 influenza, seasonal, injectable Dr. 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 2022 Medicare [id number] 2020 Unknown MMO MMO MEDICARE SUPPLEMENT [id number] 2020-Present [phone] [address] [place] [address] Indemnity [id number] 2020 Unknown [id number] 2017 Medicare MEDICARE MEDICAR E A AND B [id number] 2017-Present [phone] [address] [address] [place] [address] Medicare [id number] 2017 Medicare [id number] 2017 Private Health Insurance [facility] [id number] Medicare [id number] Unknown [id number] Unknown [id number] 2.840.1.713707.3.579.2. 462 Unknown [id number] 2.840.1.994063.3.579.2. 462 Unknown [id number] 2.16840.1.612721.3.579.2. 462 Unknown [id number] 2.16840.1.133943.3.579.2. 462 Unknown [id number] 2.840.1.102551.3.579.2. 462 Unknown [id number] 2.16840.1.954572.3.579.2. 462 Unknown [id number] 2.16840.1.345346.3.579.2. 462 Unknown [id number] 2.16.840.1.007425.3.579.2. 462 Unknown [id number] 2.16.840.1.055513.3.579.2. 462 Unknown [id number] 2.16840.1.438899.3.579.2. 462 Unknown [id number] 2.16840.1.588937.3.579.2. 462 Unknown [id number] 2.16.840.1.926665.3.579.2. 462 Unknown [id number] 2.16.840.1.059088.3.579.2. 462 Unknown [id number] 2.16.840.1.488646.3.579.2. 462 Unknown [id number] 2.16.840.1.559220.3.579.2. 462 Unknown [id number] 2.16.840.1.351250.3.579.2. 462 Unknown [id number] 2.16.840.1.060487.3.579.2. 462 Unknown [id number] 2..840.1.872492.3.579.2. 462 Unknown [id number] 2.840.1.507426.3.579.2. 462 Unknown [id number] 2.840.1.752109.3.579.2. 462 Unknown [id number] 2.840.1.431620.3.579.2. 462 Unknown [id number] 2.840.1.203410.3.579.2. 462 Unknown [id number] 2.840.1.312803.3.579.2. 462 Unknown [id number] 2.16.840.1.754192.3.579.2. 462 Unknown [id number] 2.16.840.1.884812.3.579.2. 462 Unknown [id number] 2.16.840.1.025792.3.579.2. 462 Unknown [id number] 2.16.840.1.895884.3.579.2. 462 Unknown [id number] 2.16.840.1.833938.3.579.2. 462 Unknown [id number] 2.16.840.1.648898.3.579.2. 462 Unknown [id number] 2.16.840.1.645521.3.579.2. 462 Unknown [id number] 2.16.840.1.197123.3.579.2. 462 Unknown [id number] 2.16.840.1.262929.3.579.2. 462 Unknown [id number] 2.16.840.1.546599.3.579.2. 462 Unknown [id number] 2.16.840.1.069001.3.579.2. 462 Unknown [id number] 2.16.840.1.370301.3.579.2. 462 Unknown [id number] 2.16.840.1.399801.3.579.2. 462 Unknown [id number] 2.16.840.1.616167.3.579.2. 462 Unknown [id number] 2.16.840.1.040752.3.579.2. 462 Unknown [id number] 2.16.840.1.233547.3.579.2. 462 Unknown [id number] 2.16.840.1.100160.3.579.2. 462 Unknown [id number] 2.16.840.1.085587.3.579.2. 462 Unknown [id number] 2.16.840.1.512062.3.579.2. 462 Unknown [id number] 2.16.840.1.628865.3.579.2. 462 Unknown [id number] 2.16.840.1.885269.3.579.2. 462 Unknown [id number] 2.16.840.1.068852.3.579.2. 462 Social History Date Type Detail Facility [facility] Work Phone: Start: 02-07-2022 End: 02-12-2024 Tobacco smoking status NHIS Unknown if ever smoked [facility] Start: 03-19-2021 None [facility] Start: 03-19-2021 Alone [facility] Start: 03-19-2021 Cigarettes [facility] Start: 1950 Sex Assigned At Female [facility] Start: 01-13-2013 End: 05-08-2025 Tobacco smoking status NHIS Ex-smoker [facility] Start: 12-20-1967 End: 12-20-2012 History of tobacco use Current smoker [facility] Start: 12-20-1967 End: 12-20-2012 History of tobacco use Cigarette Smoker [facility] Start: 01-13-2013 End: 09-05-2024 Cigarettes smoked current (pack per day) - Reported 0.5 [facility] Start: 01-13-2013 End: 03-27-2025 Tobacco use and exposure Smokeless tobacco non-user [facility] Start: 12-02-2021 End: 03-27-2025 Alcohol intake Current non-drinker of alcohol (finding) [facility] Start: 12-01-2021 End: 12-02-2022 History SDOH Alcohol Frequency 1 [facility] Start: 12-01-2021 History SDOH Alcohol Std Drinks 98 [facility] Start: 12-01-2021 End: 12-02-2022 History SDOH Social Connections Phone 5 [facility] Start: 12-01-2021 End: 12-02-2022 History SDOH Social Connections Protestant 2 [facility] Start: 12-01-2021 End: 12-02-2022 History SDOH Social Connections Living 4 [facility] Start: 12-01-2021 End: 12-02-2022 History SDOH Physical Activity MPS 6 [facility] Start: 11-26-2019 Education 12 [facility] Start: 02-25-2022 End: 08-15-2022 Exposure to SARS-CoV-2 (event) Not sure [facility] Work Phone: Start: 12-02-2022 History SDOH Alcohol Std Drinks 0 [facility] Start: 12-01-2022 End: 09-05-2024 Social connection and isolation panel [facility] Do you belong to any clubs or organizations such as scientology groups, unions, fraternal or athletic groups, or school groups? No [facility] Are you now , , , , never or living with a partner? [facility] How often to you hav e a drink containing alcohol? Never [facility] How many standard dr inks containing alcohol do you have on a typical day? Patient does not drink [facility] Do you feel stress - tense, restless, nervous, or anxious, or unable to sleep at night because your mind is troubled all the time - these days [OSQ] Only a little [facility] (I/We) worried wheth er (my/our) food would run out before (I/we) got money to buy more. Never true [facility] Start: 08-26-2019 Gender identity Identifies as female gender (finding) [facility] Start: 08-16-2024 Sexual orientation Heterosexual (finding) [facility] Do you feel stress - tense, restless, nervous, or anxious, or unable to sleep at night because your mind is troubled all the time - these days [OSQ] Not at all [facility] Start: 02-17-2025 End: 03-07-2025 Sex Female (finding) [facility] Medical Equipment Procedure Code Equipment Code Equipment Original Text Equipment Identifier Dates [id number], [id number] Start: 02-15-2022 End: 06-04-2024 Comment on above: Test blood sugar(s) one times daily. Dx: Other DM Code E11.51 Insulin: No Use as instructed Goals Date Patient Goal Desired Activity /State Functional Status Date Assessment Result Facility 03-20-2025 Functional status Up ad praveen;Chair [facility] Work Phone: 03-19-2025 Functional status Well [facility] Work Phone: 03-11-2025 Functional status Chair [facility] Work Phone: 03-11-2025 Functional status With Assist of 1 [facility] Work Phone: 03-11-2025 Functional status Rolling [facility] Work Phone: 03-10-2025 Functional status Fair [facility] Work Phone: 06-09-2015 Are you deaf, or do you have serious difficulty hearing No 06/09/2015 3:01 PM Meka Delgado RN No [facility] 06-09-2015 Are you blind, or do you have serious difficulty seeing, even when wearing glasses No 06/09/2015 3:01 PM EDT Meka Baca RN No [facility] 06-09-2015 Do you have serious difficulty walking or climbing stairs No 06/09/2015 3:01 PM EDT Meka Baca RN No [facility] 06-09-2015 Do you have difficul ty dressing or bathing No 06/09/2015 3:01 PM EDT Meka Baca RN No [facility] 06-09-2015 Because of a physica l, mental, or emotional condition, do you have difficulty doing errands alone such as visiting a physician's office or shopping No 06/09/2015 3:01 PM EDT Meka Baca RN No [facility] Mental Status Date Assessment Result Facility 03-20-2025 Cognitive function Voice/Name [facility] Work Phone: 03-11-2025 Cognitive function Voice/Name [facility] Work Phone: 01-20-2022 Cognitive function Voice/Name [facility] Work Phone: 06-09-2015 Because of a physica l, mental, or emotional condition, do you have serious difficulty concentrating, remembering, or making decisions No 06/09/2015 3:01 PM EDT Meka Baca RN No [facility] Clinical Notes 11-14-2017 to 05-07-2025 Telephone Encounter - Leborn Jacome RN - 05/07/2025 1:07 PM EDTTelephone [...] since her insurance does not cover it. [facility] 06-19-2025 Miscellaneous Notes Pt phoned back and states [...] like the provider to change her medication. aSra Solis, GORGE Agree with below Rishi Vasquez DO Called pt and message left she can either ask the pharmacy to run the rx with a discount card or call back and ask the provider to change the medicine. Images from the original note were not included. This is the PA response. Close reason: Product not covered by this plan. Prior Authorization not available. Payer: [email or web address] [phone] Note from payer: This drug/product is not covered under the pharmacy benefit. Prior Authorization is not available. Electronic PA requested. Pt called in and reports she went in to [facility] and they told her that her [...] Insurance Company Name: [employer] Phone number:[phone] Patient ID number: [id number] Pharmacy Name: [facility] Telephone number: [phone] documented in this encounter [facility] 05-07-2025 Telephone encounter Note Called and left a detailed voicemail notifying patient of providers message. Clinic phone number was left for the patient to call back if she would like the provider to change her medication. Sara Solis RN [facility] 05-06-2025 Telephone encounter Note Agree with below Rishi Vasquez DO [facility] 05-06-2025 Telephone encounter Note Called pt and message left she can either ask the pharmacy to run the rx with a discount card or call back and ask the provider to change the medicine. [facility] 05-06-2025 Telephone encounter Note Images from the original note were not included. This is the PA response. Close reason: Product not covered by this plan. Prior Authorization not available. Payer: [email or web address] [phone] Note from payer: This drug/product is not covered under the pharmacy benefit. Prior Authorization is not available. [facility] 05-06-2025 Telephone encounter Note Electronic PA requested. [facility] 05-06-2025 Telephone encounter Note Pt called in and reports she went in to [facility] and they told her that her [...] Insurance Company Name: [employer] Phone number:[phone] Patient ID number: [id number] Pharmacy Name: [facility] Telephone number: [phone] [facility] 04-30-2025 Instructions Fouzia Escobedo APRN.CNP - 04/30/2025 11:41 AM EDT Send me a blood sugar log in 2 weeks after taking the 10mg of glucotrol xl (5mg twice per day) Follow up as already scheduled with Dr Vasquez documented in this encounter [facility] 04-30-2025 Note HNO ID: [id number] Author: FOUZIA ESCOBEDO APRN.CNP Service: ? 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 Irene, who discussed potential surgery for [...] mellitus (HCC) Coronary artery disease Dr. Ch Associate Director, 90% blockage- unable to do stenting Diabetes mellitus type 2 in obese Diabetic feet (HCC) Gangrene (HCC) 2012 RIGHT FOOT Hypertension Mild non proliferative diabetic retinopathy (HCC) 06/11/2013 Both eyes, Dr. Ortiz [facility]-03/25/2020 left mild, right moderate Multiple thyroid nodules last US 01/2015 Peripheral artery disease due to Diabetes mellitus, Dr. Kwaku Moscoso Rotator cuff syndrome of left shoulder Dr. Deluna [facility] PAST SURGICAL HISTORY Procedure Laterality Date AMPUTATION [...] 04-08-13 ROTATOR CUFF REPAIR 03/11/14 Dr. Deluna [facility] CATH EA 1ST ORD ABDL PEL/LXTR ART [...] Take 1 tablet by mouth once daily. Uibeqmnp-Plwo-Oqx-Folic Acid 18-0.4 mg tab Take 1 tablet by mouth once daily. omega-3 fatty acids 1,000 mg cap Take 1 capsule by mouth once d (more content not included)... 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 Irene, who discussed potential surgery for [...] mellitus (HCC) Coronary artery disease Dr. Ch Associate Director, 90% blockage- unable to do stenting Diabetes mellitus type 2 in obese Diabetic feet (HCC) Gangrene (HCC) 2012 RIGHT FOOT Hypertension Mild non proliferative diabetic retinopathy (HCC) 06/11/2013 Both eyes, Dr. Ortiz [facility]-03/25/2020 left mild, right moderate Multiple thyroid nodules last US 01/2015 Peripheral artery disease due to Diabetes mellitus, Dr. Kwaku Moscoso Rotator cuff syndrome of left shoulder Dr. Regi [facility] PAST SURGICAL HISTORY Procedure Laterality Date AMPUTATION [...] ROTATOR CUFF REPAIR 03/11/14 Dr. Regi [facility] CATHJ EA 1ST ORD ABDL PEL/LXTR [...] Take 1 tablet by mouth once daily. Cfjqwvgo-Sshu-Cqo-Folic Acid 18-0.4 mg tab Take 1 tablet [...] as needed for worsening/no improvement. Fouzia Escobedo APRN.AUTOMOTIVE BUYER Recording using Synference software for draft documentation of the visit was discussed with the patient/authorized premium representative; all questions welcomed and answered. Patient/authorized premium representative agreed to proceed documented in this encounter [facility] 04-27-2025 Radiology Diagnostic study note [facility] Imaging Services [address] [place] [address] Thyroid MR#: [id number] Acct: [id number] Name: GELY NEWMAN Rep #: [id number] : 1950 F 75 From: Courtney Bright MD PCP: Dr. Rishi Vasquez, DO Status: RE G CLI Study:Thyroid Date of Exam: 04/27/25 Exam# [id number] Ordering Dr: Alla Renee MD PROCEDURE: THYROID, [...] of the ACR TI-RADS Committee, 2017 (https://linkinghub.elsevier.co m/[email or web address]) Reading Location: [id number] CC: Dr. Rishi Vasquez, DO; Dr. Ciaran Renee MD ~ Marine Machinist: Signed [facility] 04-16-2025 Telephone encounter Note Jessika calling from [facility] to report plan of care for patient and longterm will continue visit patient 1 time a week for 5 weeks. jail will work with patient on wound care to bilateral lower extremities. Patient is being follow by Dr. Irene for wound care. No call back needed. Hina Lomeli RN [facility] 04-16-2025 Miscellaneous Notes Jessika calling from [facility] to report plan of care for patient and longterm will continue visit patient 1 time a week for 5 weeks. jail will work with patient on wound care to bilateral lower extremities. Patient is being follow by Dr. Irene for wound care. No call back needed. Hina Lomeli RN documented in this encounter [facility] 04-07-2025 Telephone encounter Note Patient calls for [...] vomiting Protocols used: Diabetes - High Blood Hrzry-RYNBZ-IP T [facility] 04-07-2025 Miscellaneous Notes Patient calls for elevated [...] vomiting Protocols used: Diabetes - High Blood Aulvt-QHRUU-YE documented in this encounter [facility] 03-27-2025 Instructions PodlogarYumiko APRN.[facility] - 03/27/2025 10:36 AM EDT WHAT YOU [...] review all the medicines you take, even bgik-mle-xotjdhq medicines. As you get older, the way [...] certain medical conditions. documented in this encounter [facility] 03-27-2025 History of Presen t illness Narrative 03/26/2025 Patient presents with: ER F/U: [facility] ED -03/20/25 Multiple falls, gangrene SADIE feet SUBJECTIVE: This is a 75 year old that is here today for Above Complaints. HOSPITAL/ER FOLLOW UP: Reason for visit: Recurrent falls, Which facility: [facility] transferred to [facility] Date of visit: 03/07/2025-03/11/2025 [facility] then to TCU 03/11/2025-03/19/2025 Diagnosis: UTI, Rhabdomyolysis, [...] mellitus (HCC) Coronary artery disease Dr. Ch Associate Director, 90% blockage- unable to do stenting Diabetes mellitus type 2 in obese Diabetic feet (HCC) Gangrene (HCC) 2012 RIGHT FOOT Hypertension Mild non proliferative diabetic retinopathy (HCC) 06/11/2013 Both eyes, Dr. Ortiz [facility]-03/25/2020 left mild, right moderate Multiple thyroid nodules last US 01/2015 Peripheral artery disease (HCC) due to Diabetes mellitus, Dr. Kwaku Moscoso Rotator cuff syndrome of left shoulder Dr. Deluna [facility] ALLERGIES Sulfa (Sulfonamide Antibiotics) MEDICATIONS Current Outpatient [...] Take 1 tablet by mouth once daily. Gxtdfzfc-Feco-Pvw-Folic Acid 18-0.4 mg tab Take 1 tablet [...] WALKER FOLDING WHEELED W/O S Yumiko Whitehead APRN.AUTOMOTIVE BUYER Prescription instructions reviewed with patient as applicable. [...] which included preparing to see the patient, eiix-cm-tslz patient care, completing clinical documentation, obtaining and/or reviewing separately obtained history, performing a medically appropriate examination, counseling and educating the patient/family/caregiver, and ordering medications, tests, or procedures. documented in this encounter [facility] 03-27-2025 Note HNO ID: [id number] Author: YUMIKO WHITEHEAD APRN.CNP Service: ? Author Type: Nurse Practitioner Type: Progress Notes Filed: 03/27/2025 11:01 Note Text: 03/26/2025 Patient presents with: ER F/U: [facility] ED -03/20/25 Multiple falls, gangrene SADIE feet SUBJECTIVE: This is a 75 year old that is here today for Above Complaints. HOSPITAL/ER FOLLOW UP: Reason for visit: Recurrent falls, Which facility: [facility] transferred to [facility] Date of visit: 03/07/2025-03/11/2025 [facility] then to U 03/11/2025-03/19/2025 Diagnosis: UTI, Rhabdomyolysis, SHAYY, Chronic bilateral [...] mellitus (HCC) Coronary artery disease Dr. Ch Associate Director, 90% blockage- unable to do stenting Diabetes mellitus type 2 in obese Diabetic feet (HCC) Gangrene (HCC) 2012 RIGHT FOOT Hypertension Mild non proliferative diabetic retinopathy (HCC) 06/11/2013 Both eyes, Dr. Ortiz [facility]-03/25/2020 left mild, right moderate Multiple thyroid nodules last 01/2015 Peripheral artery disease (HCC) due to Diabetes mellitus, Dr. Kwaku Moscoso Rotator cuff syndrome of left shoulder Dr. Deluna [facility] ALLERGIES Sulfa (Sulfonamide Antibiotics) MEDICATIONS Current Outpatient [...] Take 1 tablet by mouth once daily. Zuzhpnvu-Puqb-Sdc-Folic Acid 18-0.4 mg tab Take 1 tablet [...] Colorectal Cancer Screen (more content not included)... [facility] 03-26-2025 Telephone encounter Note Agree. BP will be reassessed at appointment tomorrow. Let us know if not addressed at appointment tomorrow. Thank you, Clary Andres APRN.AUTOMOTIVE BUYER [facility] Work Phone: 03-26-2025 Miscellaneous Notes Agree. BP will be reassessed at appointment tomorrow. Let us know if not addressed at appointment tomorrow. Thank you, Clary Andres APRN.AUTOMOTIVE BUYER [facility]- reporting updated POC: plans to see pt [...] [facility] wheeled walker. No call back needed if pcp agrees. documented in this encounter [facility] 03-26-2025 Telephone encounter Note [facility]- reporting updated POC: plans to [...] is [facility] about getting a front wheeled walker. No call back needed if pcp agrees. [facility] 03-24-2025 Telephone encounter Note Noted Rishi Vasquez DO [facility] 03-24-2025 Miscellaneous Notes Noted Rishi Vasquez DO Ish[facility] PT calling from [facility] to report plan of care for patient and PT will visit patient 2 times a week for two weeks. PT will work with patient on functional mobility. No call back needed. Clemencia Chapman RN documented in this encounter [facility] 03-24-2025 Telephone encounter Note Ishaan PT calling from [facility] to report plan of care for patient and PT will visit patient 2 times a week for two weeks. PT will work with patient on functional mobility. No call back needed. Clemencia Chapman RN [facility] 03-24-2025 Telephone encounter Note Noted Jesenia Mcgee PA-C [facility] Work Phone: 03-24-2025 Miscellaneous Notes Noted Jesenia Mcgee PA-C Tatum with [facility] Nursing calls to report she saw pt today for start of care. Nursing will see pt once a week x 2 weeks then twice a week x 1 week, then once a week x 1. Nursing will be doing wound care and teaching wound prevention and education. Melly Pinon LPN documented in this encounter [facility] 03-23-2025 Telephone encounter Note Tatum with [facility] Nursing calls to report she saw pt today for start of care. Nursing will see pt once a week x 2 weeks then twice a week x 1 week, then once a week x 1. Nursing will be doing wound care and teaching wound prevention and education. Melly Pinon LPN [facility] 03-23-2025 Telephone encounter Note Call placed to Yvonne and notified of below. Clemencia Chapman RN [facility] 03-23-2025 Miscellaneous Notes Call placed to Yvonne and notified of below. Clemencia Chapman RN Yes Rishi Vasquez DO Yvonne with [facility] calls to ask if provider would be willing to follow their discharge orders for SN, PT, OT. Patient discharged home today from [facility] after having hospitalization and rehab for falls and UTI. Call back number is [phone]. Clemencia Chapman RN documented in this encounter [facility] 03-20-2025 Telephone encounter Note Yes Rishi Vasquez DO [facility] 03-20-2025 Telephone encounter Note Yvonne with [facility] HH calls to ask if provider would be willing to follow their discharge orders for SN, PT, OT. Patient discharged home today from [facility] after having hospitalization and rehab for falls and UTI. Call back number is [phone]. 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 [...] diabetes mellitus with hyperglycemia acute March 11, 025 5:26pm Urinary tract infection acute A pril 2024 5:26pm Diabetes mellitus with polyneuropathy chronic March 11, 2025 5:26pm Hyperlipidemia chronic February 5:26pm Osteomyelitis of left foot chronic March 11, 2025 5:26pm 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 inactive March 11, 2025 5:26pm Chronic painful diabetic polyneuropathy inactive March 11, 2025 5:26pm Other specified peripheral vascular diseases inactive March 11, 2025 5:26pm 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 acute April 03, 2 025 10:32am [facility] Work Phone: 1(951) 184-803804-19-2025 Evaluation note* Diagnosis Onset Date Resolution Status [...] chronic March 07, 2025 4:25pm Atherosclerosis of [place] ar riaz of both lower extremities with [...] chronic March 11, 2025 5:26pm Atherosclerosis of [place] ar riaz of both lower extremities with gangrene inactive March 11, 2025 5:26pm Chronic painful diabetic polyneuropathy inactive March 11, 2025 5:26pm Other specified peripheral vascular diseases inactive March 11 5:26pm Atherosclerosis of both lowe r extremities with bilateral ulceration acute April 03, 2025 1 0:32am PAOD (peripheral arterial occlusive disease) acute April 03 10:32am Carotid artery stenosis chronic M 2024 10:32am Diabetes mellitus with polyneuropathy chronic April 03, 2025 1 0:32am [facility] Work Phone: 1(604) 111-290704-19-2025 Evaluation note* Diagnosis Onset Date Resolution Status [...] chronic March 07, 2025 4:25pm Atherosclerosis of [place] ar riaz of both lower extremities with [...] chronic March 11, 2025 5:26pm Atherosclerosis of [place] ar riaz of both lower extremities with [...] 2025 9:17am Atherosclerosis of coronary artery of te[place] heart without angina pectoris chronic May 07, 2025 9:17am Essential hypertension chronic Ju 2024 9:17am Hyperlipidemia chronic May 07, 2025 9:17am [facility] Work Phone: 1(733) 555-925304-19-2025 Radiology Diagnostic study note [facility] Imaging Services [address] [place] [id number] HIP, UNI W/ Pelvis 2-3 Views MR#: [id number] Acct: [id number] Name: GELY NEWMAN Rep #: [id number] : 1950 F 75 From: Renetta Davis MD PCP: Dr. Rishi Vasquez, DO Status: RE G ER Study:HIP, UNI W/ Pelvis 2-3 Views Date of Ex am: 03/07/25 Exam# [id number] Ordering Dr: Megan Vega PROCEDURE: HIP, UNI [...] obvious acute fracture given limitations. Reading Location: [facility] CC: Dr. Rishi Vasquez DO; LILLIAM Joshua ~ Marine Machinist: Signed [facility]04-19-2025 Radiology Diagnostic study note [facility] Imaging Services [address] [place], [place] [address] Chest 1 View (Portable) MR#: [id number] Acct: [id number] Name: GELY NEWMAN Rep #: [id number] : 1950 F 75 From: Renetta Davis MD PCP: Dr. Rishi Vasquez DO Status: RE G ER Study:Chest 1 View (Portable) Date of Exam: 03/07/25 Exam# [id number] Ordering Dr: Megan Vega PROCEDURE: CHEST 1 [...] (Portable) IMPRESSION: No Acute Findings. Reading Location: [facility] CC: Dr. Rishi Vasquez DO; LILLIAM Joshua ~ Marine Machinist: Signed [facility]04-19-2025 Evaluation note* Diagnosis Onset Date Resolution Status Admit Date Acute UTI acute March 07 4:25pm SHAYY (acute kidney injury) acute March 07, 2025 4:25pm Anemia acute March 07 4:25pm Contusion of left hip acute Apr 2024 4:25pm GI bleed acute March 07 4:25pm Recurrent falls acute February 4:25pm Rhabdomyolysis acute February 4:25pm Chronic kidney disease chronic Ap ril 2024 4:25pm [facility] Work Phone: 1(997) 581-424202-06-2025 Telephone encounter Note* Telephone Encounter - Sara [...] Solis RN December 25, 2024 5:59 PM [facility]02-06-2025 Miscellaneous Notes* Telephone Encounter - Sara Solis [...] 25, 2024 5:59 PM [facility]25 NoteHNO ID: [id number] Author: RISHI VASQUEZ, DO Service: ? Author [...] Dr. Franco for pain mgmt at [facility] and she is now taking Lyrica instead [...] mellitus (HCC) Coronary artery disease Dr. Ch Associate Director, 90% blockage- unable to do stenting Diabetes mellitus type 2 in obese Diabetic feet (HCC) Gangrene (HCC) 2012 RIGHT FOOT Hypertension Mild non proliferative diabetic retinopathy (HCC) 06/11/2013 Both eyes, Dr. Ortiz [facility]-03/25/2020 left mild, right moderate Multiple thyroid nodules last US 01/2015 Peripheral artery disease (HCC) due to Diabetes mellitus, Dr. Kwaku Moscoso Rotator cuff syndrome of left shoulder Dr. Regi [facility] PAST SURGICAL HISTORY Procedure Laterality Date AMPUTATION [...] ROTATOR CUFF REPAIR 03/11/14 Dr. Regi Thompson [facility] CATHJ EA 1ST ORD ABDL PEL/LXTR [...] 1 tablet by paolo (more content not included)...[facility]01-17-2025 History of Present illness Narrative* Rishi Vasquez, DO - 12/05/2024 9:40 AM EST Patient presents with: 6 Month Exam HPI: Gely Newman is a 74 year old female who presents to the office today for review of health conditions. Concerns today: PAD, vascular disease, no recent new ulcerations or skin sores Sciatica, b/l thigh pain, significant, worse with prolonged standing or walking. Seeing Dr. Headley pain mgmt at [facility] and she is now taking Lyrica instead [...] mellitus (HCC) Coronary artery disease Dr. Ch Associate Director, 90% blockage- unable to do stenting Diabetes mellitus type 2 in obese Diabetic feet (HCC) Gangrene (HCC) 2012 RIGHT FOOT Hypertension Mild non proliferative diabetic retinopathy (HCC) 06/11/2013 Both eyes, Dr. Ortiz [facility]-03/25/2020 left mild, right moderate Multiple thyroid nodules last US 01/2015 Peripheral artery disease (HCC) due to Diabetes mellitus, Dr. Kwaku Moscoso Rotator cuff syndrome of left shoulder Dr. Deluna [facility] PAST SURGICAL HISTORY Procedure Laterality Date AMPUTATION [...] 04-08-13 ROTATOR CUFF REPAIR [facility]14 [facility]DL PEL/LXTR [...] Take 1 tablet by mouth once daily. Ipofraxj-Grva-Vti-Folic Acid 18-0.4 mg tab Take 1 tablet [...] agreed with the plan. Rishi Vasquez DO [address] [place] [address] documented in this encounterAdams [facility] Hospital10-28-[facility]24 Telephone encounter Note * Telephone Encounter - Meagan Martinez MA - 09/15/2024 10:28 AM EDT Call to pt and notified her of response below from Provider. Pt verbalized understanding. Meagan Martinez MA [facility]10-28-2024 Miscellaneous Notes* Telephone Encounter - Meagan Martinez [...] out to provider. Requests call back at [phone] with provider response. Clemencia Chapman RN documented in this encounterAdams [facility] Hospital10-26-2024 Telephone encounter Note * Telephone Encounter - Rishi Vasquez DO - 09/13/2024 12:24 PM EDT Okay with these considerations by specialist Rishi Vasquez DO [facility]10-23-2024 Telephone encounter Note* Telephone Encounter - Clemencia [...] out to provider. Requests call back at [phone] with provider response. Clemencia Chapman RN [facility]10-01-2024 Miscellaneous Notes* Telephone Encounter - Leatha Long [...] EDT Pt wrote into the office via Sonavation on 08/16/24 with questions regarding medications. Please [...] HAS HELPED. GELY NEWMAN documented in this encounterAdams [facility] Hospital10-01-2024 Telephone encounter Note * Telephone Encounter - Leatha Long LPN - 08/19/2024 2:29 PM EDT Patient notified via voice mail message. Leatha Long LPN [facility]10-01-2024 Telephone encounter Note* Telephone Encounter - Jesenia Mcgee PA-C - 08/19/2024 1:35 PM EDT Please let patient know that she can take Fish Oil 1000 mg. Jesenia Mcgee PA-C 08/19/2024 [facility] Work Phone: 1([phone]) 485-844109-30-2024 Telephone encounter Note* Telephone Encounter - Meagan Martinez MA - 08/18/2024 8:47 AM EDT Pt wrote into the office via Sonavation on 08/16/24 with questions regarding medications. Please [...] WENT WELL AND HAS HELPED. GELY NEWMAN [facility]09-30-2024 Telephone encounter Note* Telephone Encounter - Meagan Martinez MA - 08/18/2024 8:46 AM EDT Turned into TE and routed to PCP to advise. Meagan Martinez MA [facility]09-30-2024 Miscellaneous Notes* Telephone Encounter - Meagan Martinez MA - 08/18/2024 8:46 AM EDT Turned into TE and routed to PCP to advise. Meagan Martinez MA documented in this encounterAdams County Hospital09-24-2024 Telephone encounter Note * Telephone Encounter - Nasim López LPN - 08/12/2024 4:58 PM EDT Pt. informed via My Chart [facility]09-24-2024 Miscellaneous Notes* Telephone Encounter - Nasim Jauregui [...] Her GFR is 48 Rishi Vasquez DO * Telephone Encounter - Meagan Martinez MA [...] THE ISSUE. WILL AWAIT YOUR REPLY GELY TRENT * Telephone Encounter - Hina Lomeli RN [...] advise, Hina Lomeli RN documented in this encounterAdams County Hospital09-24-2024 Telephone encounter Note * Telephone Encounter - Rishi Vasquez DO - 08/12/2024 4:54 PM EDT Patient has some chronic kidney disease stage 3, which is from her diabetes. She needs to make surethat the specialist doesn't think this will be a concern. Her GFR is 48 Rishi Vasquez DO [facility]09-23-2024 Telephone encounter Note* Telephone Encounter - Meagan [...] ISSUE. WILL AWAIT YOUR REPLY GELY NEWMAN [facility]09-20-2024 Telephone encounter Note* Telephone Encounter - Hina [...] Please review and advise, Hina Lomeli RN [facility]07-26-2024 Telephone encounter Note* Telephone Encounter - Nasim López LPN - 06/13/2024 11:14 AM EDT Needs referral faxed to [facility] for Pain Management. This has been faxed. [facility]07-26-2024 Miscellaneous Notes* Telephone Encounter - Nasim Jauregui LPN - 06/13/2024 11:14 AM EDT Needs referral faxed to [facility] for Pain Management. This has been faxed. documented in this encounterAdams County Hospital07-23-2024 NoteHNO ID: [id number] Author: ?, ?, ? Service: ? Author Type: ? Type: Progress Notes Filed: 06/10/2024 13:07 Note Text: POPULATION HEALTH NAVIGATION OUTREACH Action/[facility] Support: Called pt to schedule an appt in Pain Management. Lvm for pt to call [phone]. Reason for Outreach Care Gap/HCC or Scheduling Wellness Visits Care Gaps due: Specialty Scheduling Patient Contacted: Unable or unnecessary to reach patient: Left message Class[employer] message sent Navigation Signature: Gordon Min June 10, 2024 1:06 [facility]07-23-2024 History of Present illness Narrative* Gordon Min - 06/10/2024 1:06 PM EDT POPULATION HEALTH NAVIGATION OUTREACH Action/[facility] Support: Called pt to schedule an appt in Pain Management. Lvm for pt to call [phone]. Reason for Outreach Care Gap/HCC or Scheduling Wellness Visits Care Gaps due: Specialty Scheduling Patient Contacted: Unable or unnecessary to reach patient: Left message [employer] sent Navigation Signature: Gordon Min June 10, 2024 1:06 PM documented in this encounterAdams County Hospital07-23-2024 NotePatient Outreach (NETNAV) GELY NEWMAN ([id number]) 1950 F Date Time Provider Department 06/10/24 NO PCP NETNAV During your visit today, we recorded the following information about you: Gordon Min 06/10/2024 1:07 PM Signed POPULATION HEALTH NAVIGATION OUTREACH Action/[facility] Support: Called pt to schedule an appt in Pain Management. [facility] [place] for pt to call [phone]. Reason for Outreach Care Gap/HCC or Scheduling Wellness Visits Care Gaps due: Specialty Scheduling Patient Contacted: Unable or unnecessary to reach patient: Left message [employer] Mobile[employer] message sent Navigation Signature: Gordon Min June [...] 1 tablet by mouth once daily. - Qebrziiv-Baie-Nhe-Folic Acid 18-0.4 mg tab Take 1 tablet [...] [L72.3, L08.9] 02/26/2019 Coronary artery disease involving te-moak heart *05/28/2019 Abnormal urine odor [R82.90] 05/28/2019 [...] lef*06/04/2024 Encounter Status:Closed by GORDON MIN on 06/10/24[facility]07-17[facility] Telephone encounter Note* Telephone Encounter - Keisha Coronado RN - 06/04/2024 3:59 PM EDT Spoke with patient. Given message from provider's office. Patient verbalizes understanding. Keisha Coronado RN [facility]07-17-2024 Miscellaneous Notes* Telephone Encounter - Keisha Coronado [...] Thanks Rishi Vasquez DO' documented in this encounterAdams County Hospital07-17-2024 Telephone encounter Note * Telephone Encounter - Aiyana Gaffney LPN - 06/04/2024 2:49 PM EDT Phoned patient left message to return call and ask to speak to a nurse. [facility]07-17-2024 Telephone encounter Note* Telephone Encounter - Rishi Vasquez DO - 06/04/2024 2:36 PM EDT Please inform patient that her mammogram is normal/negative. She will need routine screening mammogram in 1 year. Thanks Rishi Vasquez DO' [facility]07-17-2024 Note* Letter - Coordinator, Mammography - 06/04/2024 2:01 PM EDT June 04, 2024 PID: [id number] Gely Newman [address] [place] [address] Dear Ms. Newman, We are pleased to [...] report will be kept [facility] at [facility] as part of your permanent medical record and are available for your continuing care. Thank you for allowing us to help in meeting your health care needs. Sincerely, Dr. Monteiro Interpreting Radiologist [facility] (Normal over 40) [facility]07-17-2024 Miscellaneous Notes* Letter - Coordinator, Mammography - 06/04/2024 2:01 PM EDT June 04, 2024 PID: [id number] Gely Newman [address] [place] [address] Dear Ms. Newman, We are pleased to [...] report will be kept on file at [facility] as part of your permanent medical record and are available for your continuing care. Thank you for allowing us to help in meeting your health care needs. Sincerely, Dr. Monteiro Interpreting Radiologist [facility] (Normal over 40) documented in this encounterAdams County Hospital07-17-2024 NoteHNO ID: [id number] Author: RISHI VASQUEZ, DO Service: ? Author [...] mellitus (HCC) Coronary artery disease Dr. Ch Associate Director, 90% blockage- unable to do stenting Diabetes mellitus type 2 in obese Diabetic feet (HCC) Gangrene (HCC) 2012 RIGHT FOOT Hypertension Mild non proliferative diabetic retinopathy (HCC) 06/11/2013 Both eyes, Dr. Ortiz [facility]-03/25/2020 left mild, right moderate Multiple thyroid nodules last US 01/2015 Peripheral artery disease (HCC) due to Diabetes mellitus, Dr. Kwaku Moscoso Rotator cuff syndrome of left shoulder Dr. Regi Thompson [facility] PAST SURGICAL HISTORY Procedure Laterality Date AMPUTATION [...] right leg REVSC OPN/PRQ FEM/POP W/ATHRC/ANGIOP [facility] 04-08-13 ROTATOR CUFF REPAIR 03/11/14 [facility] C[facility] EA 1ST ORD ABDL PEL/LXTR [...] by mouth two t (more content not included)...[facility]07-17-2024 History of Present illness Narrative* Rishi [...] mellitus (HCC) Coronary artery disease Dr. Ch Associate Director, 90% blockage- unable to do stenting Diabetes mellitus type 2 in obese Diabetic feet (HCC) Gangrene (HCC) 2012 RIGHT FOOT Hypertension Mild non proliferative diabetic retinopathy (HCC) 06/11/2013 Both eyes, Dr. Ortiz [facility]-03/25/2020 left mild, right moderate Multiple thyroid nodules last US 01/2015 Peripheral artery disease (HCC) due to Diabetes mellitus, Dr. Kwaku Moscoso Rotator cuff syndrome of left shoulder Dr. Deluna [facility] PAST SURGICAL HISTORY Procedure Laterality Date AMPUTATION TOE INTERPHALANGEAL JOINT 01-01-2013 left 5th toe due to diabetes gangrene ARTHROSCOPY KNEE DIAGNOSTIC W/WO SYNOVIAL BX SPX 12/31/13 Arthroscopy, knee lt COLONOSCOPY FLX DX W/COLLJ SPEC WHEN PFRMD 1-3- tubular adenomas, repeat in 3 years COLONOSCOPY [...] 04-08-13 ROTATOR CUFF REPAIR 03/11/14 Dr. Deluna [facility] CATH EA 1ST ORD ABDL PEL/LXTR ART BRREPLACED BY [facility] 06-07-16 APLL Social History Tobacco Use Smoking [...] Take 1 tablet by mouth once daily. Xeefkost-Uejr-Tjg-Folic Acid 18-0.4 mg tab Take 1 tablet [...] STIMULATING HORMONE - T4 FREE/FREE THYROXINE Rishi Vasquez DO To ER if develops chest pain, shortness of breath, or severe worsening of symptoms. Discussed risks, benefits, alternatives, and potential side effects of medications. Patient expressed understanding and agreed with the plan. Rishi Vasquez DO [address] [place] [address] documented in this encounterAdams County Hospital07-16-2024 History of Present illness Narrative* Elizabeth Sandoval [...] PATIENT PRESENTS WITH AN IMPLANTABLE OR ATTACHED CASHIER AND WAITER/WAITRESS: No RADIOLOGY DEPARTMENT: Mammography PERIPHERAL IV DATA: Not applicable SIGNED BY: RT Mono(R) June 03, 2024 9:08 AM documented in this encounterAdams County Hospital07-16-2024 NoteHNO ID: [id number] Author: ELIZABETH SANDOVAL RT(Chau) Service: ? Author Type: Technologist Type: Progress [...] PATIENT PRESENTS WITH AN IMPLANTABLE OR ATTACHED CASHIER AND WAITER/WAITRESS: No RADIOLOGY DEPARTMENT: Mammography PERIPHERAL IV DATA: Not applicable SIGNED BY: RT Mono(R) June 03, 2024 9:08 [facility]07-01-2024 Telephone encounter Note* Telephone Encounter - Joanie Rosario LPN - 05/19/2024 12:29 PM EDT Pt was notified of such. [facility]07-01-2024 Miscellaneous Notes* Telephone Encounter - Joanie Rosario LPN - 05/19/2024 12:29 PM EDT Pt was notified of such. * Telephone Encounter - Clary Andres APRN.CNP - 05/19/2024 11:31 AM EDT Labs are signed as pended. Please make sure she knows these are to be fasting. Thank you, Clary Andres APRN.MARK * Telephone Encounter - Meagan Martinez MA - 05/19/2024 9:16 AM EDT Pt sent in Sonavation message asking for lab orders for her upcoming appt 06/04/24. She would like these ordered so she can schedule lab appt. Please notify her once these have been ordered. Labs pended,please review and file. Meagan Martinez MA documented in this encounterAdams County Hospital07-01-2024 Telephone encounter Note * Telephone Encounter - Clary Andres APRN.CNP - 05/19/2024 11:31 AM EDT Labs are signed as pended. Please make sure she knows these are to be fasting. Thank you, Clary Andres APRN.AUTOMOTIVE BUYER [facility]07-01-2024 Telephone encounter Note* Telephone Encounter - Meagan Martinez MA - 05/19/2024 9:16 AM EDT Pt sent in Sonavation message asking for lab orders for her upcoming appt 06/04/24. She would like these ordered so she can schedule lab appt. Please notify her once these have been ordered. Labs pended,please review and file. Meagan Martinez MA [facility]07-01-2024 Telephone encounter Note* Telephone Encounter - Meagan Martinez MA - 05/19/2024 9:15 AM EDT Started TE and routed to Provider. Meagan Martinez MA [facility]07-01-2024 Miscellaneous Notes* Telephone Encounter - Meagan Martinez MA - 05/19/2024 9:15 AM EDT Started TE and routed to Provider. Meagan Martinez MA documented in this encounterAdams County Hospital05-06-2024 Telephone encounter Note * Telephone Encounter - [...] Please advise. Thank you. Michaela Millan MA. [facility]05-06-2024 Miscellaneous Notes* Telephone Encounter - Michaela Millan [...] you. Michaela Millan MA. documented in this encounterAdams County Hospital05-02-2024 History of Present illness Narrative* Anselmo Marr [...] Therapeutic exercise, Neuromuscular re- education, Manual therapy, Self-mcfp management, and Gait training. Updated: 02/14/24 and [...] 1043 Anselmo Marr PT documented in this encounterAdams County Hospital04-22-2024 History of Present illness Narrative* Keisha Guzman PTA - 03/10/2024 11:34 AM EDT Program_ID:[id number] Access Code: [email or web address] URL: [email or web address] Date: 03-10-2024 Prepared By: Anselmo Marr Program [...] to the side. Pt reports that in approx 2012, she had a diagnosis of a [...] deviations identified in the objective section above. Self-Usp Management: 1: Pt's questions answered in regards [...] 1144 ANISA Rodriguez PT documented in this encounterAdams County Hospital04-18-2024 History of Present illness Narrative* Anselmo Marr [...] Gely Newman tolerated the session with decreased symptoms. She [...] LEVEL OF FUNCTION: TREATMENT: Therapeutic Exercise: 1: Locai StepOne seat #11 x6 minutes (Pt provided [...] 1044 Anselmo Marr PT documented in this encounterAdams County Hospital03-21-2024 Miscellaneous Notes* Telephone Encounter - Lebron Jacome RN - 02/07/2024 2:13 PM EDT Faxed general surgery referral and US thyroid/parathyroid to Dr. Kwaku Moscoso, per patient request (reports Dr. Moscoso never received them). . Confirmation received. * Telephone Encounter - Selma Galeano - 01/14/2024 2:38 PM EST Faxed Selma Galeano documented in this encounterAdams County Hospital03-19-2024 History of Present illness Narrative* Keisha Guzman PTA - 02/05/2024 9:22 AM EDT Program_ID:[id number] Access Code: [email or web address] URL: [email or web address] Date: 02-05-2024 Prepared By: Anselmo Marr Program [...] - 1 sets - 3 reps * Anselmo Marr PT - 02/05/2024 8:44 AM EDT Episode [...] use of cane. TREATMENT: Therapeutic Exercise: 1: GNosis AnalyticsFit StepOne seat #12 x6 minutes (1:1 throughout.) [...] 929 ANISA Rodriguez PT documented in this encounterAdams County Hospital03-13-2024 History of Present illness Narrative* Anselmo Marr [...] cane to therapy. TREATMENT: Therapeutic Exercise: 1: Locai StepOne seat #12 x6 minutes (1:1 throughout. [...] 1050 Anselmo Marr PT documented in this encounterAdams County Hospital03-11-2024 Miscellaneous Notes* Telephone Encounter - Laura Isaac [...] you. Laura Isaac LPN. documented in this encounterAdams County Hospital03-06-2024 History of Present illness Narrative* Anselmo Marr [...] LEVEL OF FUNCTION: TREATMENT: Therapeutic Exercise: 1: GNosis [employer] StepOne seat #12 x6 minutes (1:1 throughout. [...] Marr PT - 01/23/2024 10:31 AM EST Program_ID:[id number] Access Code: [email or web address] URL: [email or web address] Date: 01-23-2024 Prepared By: Anselmo Marr Program [...] sets - 10 reps documented in this encounterAdams County Hospital02-27-2024 History of Present illness Narrative* Anselmo Marr [...] Planned: 6 Planned Treatment Interventions: Therapeutic exercise (28284), Neuromuscular re- education (27629), Manual therapy (41871), Therapeutic activities (98545), Self- mcfp management (41008), Gait Training (82045), Patient/Family/Caregiver Education, Body Mechanics Training, Functional training [...] Marr PT - 01/15/2024 10:42 AM EST Program_ID:[id number] Access Code: [email or web address] URL: [email or web address] Date: 01-15-2024 Prepared By: Anselmo Marr Program Notes Exercises - Hooklying Single Knee to Chest Stretch - 3 x daily - 7 x weekly - sets - 3 reps - Supine Double Knee to Chest - 3 x daily - 7 x weekly - sets - 3 reps documented in this encounterAdams County Hospital02-22-2024 Miscellaneous Notes* Telephone Encounter - Keisha Coronado [...] of the nodules esophoria documented in this encounterAdams County Hospital02-14-2024 Miscellaneous Notes* Telephone Encounter - Ira Moreno, GORGE - 01/02/2024 6:25 PM EST patient notified of information and would like scheduled for therapy. Patient can do Mon-Wed-Fri 8-12 or -Th 930-12 * Telephone Encounter - Selma Galeano MA [...] Kerr LPN - 12/27/2023 2:04 PM EST Veridhart message: I HAVE COME TO THE CONCLUSION [...] THANK YOU, GELY NEWMAN documented in this encounterAdams County Hospital02-08-2024 Miscellaneous Notes* Telephone Encounter - Betsey Kerr LPN - 12/27/2023 2:04 PM EST Sent to provider in phone encounter. documented in this encounterAdams County Hospital02-01-2024 History of Present illness Narrative* Rebecca Puente [...] PATIENT PRESENTS WITH AN IMPLANTABLE OR ATTACHED CASHIER AND WAITER/WAITRESS: No RADIOLOGY DEPARTMENT: Ultrasound PERIPHERAL IV DATA: Not applicable SIGNED BY: Rebecca Puente RDMS RVT December 20, 2023 4:21 PM documented in this encounterAdams County Hospital01-22-2024 NoteIMPRESSION: DEGENERATIVE CHANGE IN ALIGNMENT ABNORMALITIES DESCRIBED. PROGRESSION PRIOR STUDY. NO ACUTE ABNORMALITY Marine Machinist: PSCB Transcribe Date/Time: Dec 10 2023 1:03P Dictated by : CHASE SUE MD This examination was interpreted and the report reviewed and electronically signed by: CHASE SUE MD on Dec 10 2023 1:17PM EST DIVISION OF [id number] History of Present illness Narrative* Sienna Mendoza [...] 10, 2023 8:44 AM documented in this encounterAdams County Hospital11-15-2023 Miscellaneous Notes* Telephone Encounter - Aiyana Gaffney LPN - 10/03/2023 3:43 PM EST [...] end of the week. documented in this encounterAdams County Hospital10-10-2023 Miscellaneous Notes* Telephone Encounter - Dillon Watts APRN.CNP - 08/28/2023 7:55 AM EDT Noted, thank you. Dillon Watts APRN.AUTOMOTIVE BUYER * Telephone Encounter - Lebron Jacome RN - 08/23/2023 11:57 AM EDT Pt returned call and given provider's message below with verbalized understanding. Patient reports Dr. Membreno[facility] ordered the wound culture, from her bigtoe. States she does not know why he [...] results to Dr. Membreno at fax # [phone]. Confirmation received. * Telephone Encounter - Aiyana [...] but wanted to make you aware. Meagan Martniez Ma Scan on 08/18/2023 9:38 AM by Provider, External, SARIAH: Miscellaneous Lab documented in this encounterAdams County Hospital09-13-2023 Miscellaneous Notes* Telephone Encounter - Nasim López [...] EDT Pt had blood work done at [facility]. View External Labs - Microbiology [ID [id number]] View External Labs - Miscellaneous Lab [ID [id number]] documented in this encounterAdams County Hospital08-22-2023 Miscellaneous Notes* Telephone Encounter - Kristie Delarosa LPN - 07/10/2023 11:54 AM EDT Pt notified of same, verbalizes understanding. Kristie Delarosa LPN * Telephone Encounter - Danyelle Tripp PA-C - 07/10/2023 11:02 AM EDT Let patient know that repeat Mamm/US is normal. Return to yearly screenings. documented in this encounterAdams County Hospital08-22-2023 History of Present illness Narrative* Rebecca Puente [...] 10, 2023 2:57 PM documented in this encounterAdams County Hospital08-22-2023 History of Present illness Narrative* Elizabeth Sandoval [...] 10, 2023 9:56 AM documented in this encounterAdams County Hospital07-17-2023 History of Present illness Narrative* Rishi Vasquez, - 06/04/2023 11:42 AM EDT Patient presents with: 6 Month Exam HPI: Gely Newman is a 73 year old female who presents to the office today for review of health conditions. Concerns today: Carotid artery US on 06/22/[address] Moscoso, surgeon, on 07/10/23 for follow up CAD, has recently seen Dr. Schultz/Rick Bergeron SPECIAL POPULATION PARAPROFESSIONAL, no recent new testing, no recent symptoms [...] mellitus (HCC) Coronary artery disease Dr. Ch Associate Director, 90% blockage- unable to do stenting Diabetes mellitus type 2 in obese (HCC) Diabetic feet (HCC) Gangrene (HCC) 2012 RIGHT FOOT Hypertension Mild non proliferative diabetic retinopathy (HCC) 06/11/2013 Both eyes, Dr. Ortiz [facility]-03/25/2020 left mild, right moderate Multiple thyroid nodules last US 01/2015 Peripheral artery disease (HCC) due to Diabetes mellitus, Dr. Kwaku Moscoso Rotator cuff syndrome of left shoulder Dr. Regi Thompson [facility] PAST SURGICAL HISTORY Procedure Laterality Date AMPUTATION [...] ROTATOR CUFF REPAIR 03/11/14 Dr. Regi Thompson [facility] CATHJ EA 1ST ORD ABDL PEL/LXTR [...] Take 1 tablet by mouth once daily. Fqppqkdd-Zrdc-Ipk-Folic Acid 18-0.4 mg tab Take 1 tablet [...] 30-44 and albumin creatinine ratio <30 mg/g ([facility]) - ICD9: 585.3, ICD10:N18.32 - eGFR: Stable [...] M12.9 Stable, continue walking and stretching Rishi Vasquez DO To ER if develops chest pain, shortness of breath, or severe worsening of symptoms. Discussed risks, benefits, alternatives, and potential side effects of medications. Patient expressed understanding and agreed with the plan. Rishi Vasquez DO [address] [place] [address] documented in this encounterAdams County Hospital07-11-2023 Miscellaneous Notes* Telephone Encounter - Jessie Collins [...] views. Danyelle Tripp PA-C documented in this encounterAdams County Hospital07-11-2023 Miscellaneous Notes* Letter - Coordinator, Mammography - 05/29/2023 12:21 PM EDT May 30, 2023 PID: [id number] Gely Newman [address] [place] [address] Dear Ms. Newman, Your recent breast imaging exam on 05/29/2023 showed a possible finding that requires additional imaging studies for a complete evaluation. Most such findings are probably benign (not cancer). If you have a healthcare provider who ordered/prescribed your screening mammogram: Please call [phone] or [phone] to schedule an appointment for your additional [...] and reports are kept [facility] as part of your permanent medical record, and are available for your continuing care. Thank you for allowing us to help in meeting your health care needs. Sincerely, Dr. Stubbs Interpreting Radiologist [facility] (Additional imaging) documented in this encounterAdams County Hospital07-11-2023 History of Present illness Narrative* Hawa Will RT(R) - 05/29/2023 10:10 AM EDT Radiology Service [...] 29, 2023 9:58 AM documented in this encounterAdams County Hospital07-10-2023 Miscellaneous Notes* Telephone Encounter - Michaela Millan Ma - 05/28/2023 10:17 AM EDT Last office visit: 12/05/22 F/u scheduled: 06/04/23 Michaela Millan Ma documented in this [facility]04-24-2023 Miscellaneous Notes* Telephone Encounter - Jessie Collins LPN - 03/12/2023 1:57 PM EDT Reina with Dr. Garner's office called and identified pt with name and date of . Pt getting DM shoes from them and they received everything except the office note from Dr. Sebastian 12-11-22. Requested this be faxed to them. Faxed to [phone]. Done. Jessie Collins LPN documented in this [facility]03-22-2023 Miscellaneous Notes* Telephone Encounter - Clary Andres APRN.CNP - 02/07/2023 3:05 PM EDT Order signed. Clary Andres APRN.MARK * Telephone Encounter - Selma Galeano - 02/05/2023 1:21 PM EDT Order pended Selma Galeano documented in this [facility]03-06-2023 Miscellaneous Notes* Telephone Encounter - [...] want to do a PA? Reference # [id number] [facility] Miscellaneous Notes* Telephone Encounter - Joanie Rosario LPN - 01/08/2023 11:53 AM EST Rosalie--12/05/22 Nov--06/04/23 Last refill--07/17/22 180 with 0 refills Last labs--12/14/22 [facility]23 Miscellaneous Notes* Telephone Encounter - Nasim López [...] needed Rishi Vasquez DO documented in this encounterAd[facility]02-16-2023 Miscellaneous Notes* Telephone Encounter - Joanie Rosario LPN - 01/04/2023 11:56 AM EST Spoke with pt gave information provided. [pt voices understanding. * Telephone Encounter - Rishi Vasquez DO - 01/04/2023 11:28 AM EST Please inform patient that her NM thyroid uptake scan shows no concerning abnormal uptake Rishi Vasquez DO documented in this encounterAd[facility]02-09-2023 History of Present illness Narrative* Evelin Alfaro, RT(R) - 12/28/2022 9:00 AM EST RADIOLOGY [...] 09:22 PATIENT DISCHARGED TO: Ambulatory patient, left IN department area. A Diagnostic radioactive procedure has taken place, with no further precautions necessary other than routine body substance precautions. More information regarding radiation safety can be found usingthis link: [email or web address] SIGNATURE: ISMAEL Mcpherson PATIENT NAME: Gely Newman DATE: December 28, 2022 TIME: 09:25 AM PAGER/CONTACT #: documented in this encounterAd[facility]02-01-2023 History of Present illness Narrative* Rebecca Puente [...] 20, 2022 11:23 AM documented in this encounterAd[facility]01-19-2023 Miscellaneous Notes* Telephone Encounter - Joanie Rosario LPN - 12/07/2022 10:41 AM EST Called pt left message as such. * Telephone Encounter - Dillon Watts APRN.CNP - 12/07/2022 10:09 AM EST No need for another carotid ultrasound at this time. Dillon Watts APRN.CNP * Telephone Encounter - Joanie Rosario LPN - 12/07/2022 9:57 AM EST Mrs. Newman came to [facility] , she states was scheduled for ultrasound [...] to Rebeka to view. documented in this encounterAd[facility]01-17-2023 History of Present illness Narrative* Rishi Vasquez, [...] mellitus (HCC) Coronary artery disease Dr. Ch Associate Director, 90% blockage- unable to do stenting Diabetes mellitus type 2 in obese (HCC) Diabetic feet (HCC) Gangrene (HCC) 2012 RIGHT FOOT Hypertension Mild non proliferative diabetic retinopathy (HCC) 06/11/2013 Both eyes, Dr. Ortiz [facility]-03/25/2020 left mild, right moderate Multiple thyroid nodules last US 01/2015 Peripheral artery disease (HCC) due to Diabetes mellitus, Dr. Kwaku Moscoso Rotator cuff syndrome of left shoulder Dr. Deluna [facility] PAST SURGICAL HISTORY Procedure Laterality Date AMPUTATION TOE INTERPHALANGEAL JOINT 01-01-2013 left 5th toe due to diabetes gangrene ARTHROSCOPY KNEE DIAGNOSTIC W/WO SYNOVIAL BX SPX 12/31/13 Arthroscopy, knee lt COLONOSCOPY FLX DX W/COLLJ SPEC WHEN PFRMD 1--14 tubular adenomas, repeat in 3 years COLONOSCOPY [...] 04-08-13 ROTATOR CUFF REPAIR 03/11/14 Dr. Deluna [facility] CATHJ EA 1ST ORD ABDL PEL/LXTR ART [...] Take 1 tablet by mouth once daily. Gcnypdof-Ugat-Ooj-Folic Acid 18-0.4 mg tab Take 1 tablet [...] agreed with the plan. Rishi Vasquez DO [address] [place] [address] documented in this encounterAd[facility]11-05-2022 History of Present illness Narrative* Camille Mitchell PA-C - 09/23/2022 10:45 AM EDT This note was created using EcoSynth[employer]. Subjective Gely Newman is a 72 year [...] mellitus (HCC) Coronary artery disease Dr. Ch Associate Director, 90% blockage- unable to do stenting Diabetes mellitus type 2 in obese (HCC) Diabetic feet (HCC) Gangrene (HCC) 2012 RIGHT FOOT Hypertension Mild non proliferative diabetic retinopathy (HCC) 06/11/2013 Both eyes, Dr. Ortiz [facility]-03/25/2020 left mild, right moderate Multiple thyroid nodules last US 01/2015 Peripheral artery disease (HCC) due to Diabetes mellitus, Dr. Kwaku Moscoso Rotator cuff syndrome of left shoulder Dr. Deluna [facility] Current Outpatient Medications Medication Sig Dispense Refill [...] Take 1 tablet by mouth once daily. Bzdimulc-Ebjg-Fvv-Folic Acid 18-0.4 mg tab Take 1 tablet [...] 04-08-13 ROTATOR CUFF REPAIR 03/11[facility]D ABDL PEL/LXTR [...] CULTURE Camille Mitchell PA-C documented in this encounterAd[facility] Hospital10-20-2022 Miscellaneous Notes* Telephone Encounter - Sara Solis RN - 09/07/2022 11:05 AM EDT Pt called and is notified of providers results and instructions. Pt voices understanding. Pt sent information through [employer] per Pt request. Sara Solis RN * [...] would like her to discuss with her massotherapist to decrease this dose to 20 mg a day due to these abnormal kidney levels. Also her TSH is slightly low. I don't think she is taking any thyroid medication. Need for recheck of thyroid labs in 1 month as ordered Rishi Vasquez DO documented in this encounterAd[facility] Hospital09-27-2022 History of Present illness Narrative* Camille Mitchell PA-C - 08/15/2022 1:07 PM EDT Images from the original note were not included. This note was created using Galavant[employer]. Subjective Gely Newman is a 72 year [...] mellitus (HCC) Coronary artery disease Dr. Ch Associate Director, 90% blockage- unable to do stenting Diabetes mellitus type 2 in obese (HCC) Diabetic feet (HCC) Gangrene (HCC) 2012 RIGHT FOOT Hypertension Mild non proliferative diabetic retinopathy (HCC) 06/11/2013 Both eyes, Dr. Ortiz [facility]-03/25/2020 left mild, right moderate Multiple thyroid nodules last US 01/2015 Peripheral artery disease (HCC) due to Diabetes mellitus, Dr. Kwaku Moscoso Rotator cuff syndrome of left shoulder Dr. Deluna [facility] Current Outpatient Medications Medication Sig Dispense Refill [...] Take 1 tablet by mouth once daily. Bnhbdpqz-Cyvd-Agv-Folic Acid 18-0.4 mg tab Take 1 tablet [...] 04-08-13 ROTATOR CUFF REPAIR 03/11/14 [facility]D [facility]DL PEL/LXTR ART [...] RIGHT Camille Mitchell PA-C documented in this encounterAd[facility] Hospital07-30-2022 History of Present illness Narrative* Kena Older, SPIDER ASSEMBLER.AUTOMOTIVE BUYER - 06/17/2022 8:33 AM EDT CC: Patient [...] mellitus (HCC) Coronary artery disease Dr. Ch Associate Director, 90% blockage- unable to do stenting Diabetes mellitus type 2 in obese (HCC) Diabetic feet (HCC) Gangrene (HCC) 2012 RIGHT FOOT Hypertension Mild non proliferative diabetic retinopathy (HCC) 06/11/2013 Both eyes, Dr. Ortiz [facility]-03/25/2020 left mild, right moderate Multiple thyroid nodules last US 01/2015 Peripheral artery disease (HCC) due to Diabetes mellitus, Dr. Kwaku Moscoso Rotator cuff syndrome of left shoulder Dr. Deluna [facility] PAST SURGICAL HISTORY Procedure Laterality Date AMPUTATION TOE INTERPHALANGEAL JOINT 01-01-2013 left 5th toe due to diabetes gangrene ARTHROSCOPY KNEE DIAGNOSTIC W/WO SYNOVIAL BX SPX 12/31/13 Arthroscopy, knee lt COLONOSCOPY FLX DX W/COLLJ SPEC WHEN PFRMD 1-3- tubular adenomas, repeat in 3 years COLONOSCOPY [...] 04-08-13 ROTATOR CUFF REPAIR 03/11/14 Dr. Deluna [facility] CATHJ EA 1ST ORD ABDL PEL/LXTR ART [...] Take 1 tablet by mouth once daily. Cguhjsmg-Bqhx-Sfm-Folic Acid (CENTRUM COMPLETE) 18-0.4 mg tab Take [...] plan. Kena Sims APRN.CNP documented in this encounterAd[facility] Hospital07-18-2022 Miscellaneous Notes* Telephone Encounter - Sara Solis [...] this. Dillon Watts APRN.CNP documented in this encounterAdams [facility] Hospital07-18-2022 Miscellaneous Notes* Letter - Mammography Coordinator - 06/05/2022 12:46 PM EDT June 05, 2022 PID: [id number] Gely Newman [address] [place] [address] Dear Ms. Newman, Your recent breast imaging exam on 06/05/2022 showed a possible finding that requires additional imaging studies for a complete evaluation. Most such findings are probably benign (not cancer). If you have a healthcare provider who ordered/prescribed your screening mammogram: Please call [phone] or [phone]: [phone] to schedule an appointment for your additional [...] and reports are kept [facility] at [facility] as part of your permanent medical record, and are available for your continuing care. Thank you for allowing us to help in meeting your health care needs. Sincerely, Dr. Benjamin Interpreting Radiologist [facility] (Additional imaging) documented in this encounterAdams [facility] Hospital07-18-2022 History of Present illness Narrative* RT Mono(R) [...] 05, 2022 10:08 AM documented in this encounterAdams [facility] Hospital07-13-2022 History of Present illness Narrative* Rishi Vasquez DO - 05/31/2022 10:58 AM EDT Patient presents with: 6 Month Exam HPI: Gely Newman is a 72 year old female who presents to the office today for review of health conditions. Concerns today: PAD, hx of foot ulcerations, currently with one on her right foot, managed by Commercial Leasing Agent Hx of CAD, PAD, sees [facility] group. Will have follow up in the [...] mellitus (HCC) Coronary artery disease Dr. Ch Associate Director, 90% blockage- unable to do stenting Diabetes mellitus type 2 in obese (HCC) Diabetic feet (HCC) Gangrene (HCC) 2012 RIGHT FOOT Hypertension Mild non proliferative diabetic retinopathy (HCC) 06/11/2013 Both eyes, Dr. Ortiz [facility]-03/25/2020 left mild, right moderate Multiple thyroid nodules last US 01/2015 Peripheral artery disease (HCC) due to Diabetes mellitus, Dr. Kwaku Moscoso Rotator cuff syndrome of left shoulder Dr. Regi horan PAST SURGICAL HISTORY Procedure Laterality Date AMPUTATION [...] 12-31-12 RIGHT FOOT REVSC OPN/PRQ FEM/POP W/ATHRC/ANGIOP [facility] 02-10-13 right leg REVSC OPN/PRQ FEM/POP W/ATHRC/ANGIOP [facility] 04-08-13 ROTATOR CUFF REPAIR 03/11/14 Dr. Regi Thompson [facility] CATHJ EA 1ST ORD ABDL PEL/LXTR [...] Take 1 tablet by mouth once daily. Wsecqrjj-Fmbb-Sbz-Folic Acid (CENTRUM COMPLETE) 18-0.4 mg tab Take [...] arise. - Discussed diabetic education issues of halfway diabetic complications, diet, medications- side effects and [...] - stable 8. Coronary artery disease involving te-moak heart, unspecified vessel or lesion type, unspecified whether angina present - ICD9: 414.01, ICD10: I25.10 - f/u with Associate Director, no new symptoms 9. Fatigue, unspecified type [...] agreed with the plan. Rishi Vasquez DO [address] [place] [address] documented in this encounterAd[facility]07-06-2022 Miscellaneous Notes* Telephone Encounter - Yvonne Garcia - 05/24/2022 1:32 PM EDT LM on patient's VM to schedule consult for colonoscopy. First attempt. * Telephone Encounter - Garrick La - 05/24/2022 1:25 PM EDT Patient due for 5 year follow up colonoscopy. Patient is not appropriate for open access. Please schedule office consult Garrick La documented in this encounterAd[facility] Hospital06-14-2022 Miscellaneous Notes* Telephone Encounter - Jessie Collins [...] you. Jessie Collins LPN documented in this encounterAdams [facility] Hospital06-06-2022 Miscellaneous Notes* Telephone Encounter - Clary Johnson APRN.CNP - 04/24/2022 12:26 PM EDT PDMP website checked and validated. All prescriptions have been APPROPRIATELY filled. No suspiciousactivity was identified. 04/24/2022 by Clary Johnson APRN.MARK The following approved medication requests have been [...] advise. Georgia Nicole LPN documented in this encounterAd[facility] Hospital05-05-2022 Miscellaneous Notes* Telephone Encounter - Dillon Watts [...] refills Last labs-- 03/07/22 documented in this encounterAd[facility] Hospital05-05-2022 Miscellaneous Notes* Telephone Encounter - Joanie Rosario LPN - 03/23/2022 8:43 AM EDT rosalie-- 12/02/21 Last refill-- 04/06/21 30 with 11 refills Last labs- 03/07/22 documented in this encounterAd[facility] Hospital05-04-2022 Evaluation note* Diagnosis Stage 3 chronic kidney disease, unspecified whether stage 3a or 3b CKD (HCC)- Primary 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) Type II or unspecified type diabetes mellitus with peripheral circulatory disorders, not stated as uncontrolled documented in this encounter [facility]04-08-2022 Miscellaneous Notes* Telephone Encounter - Selma Sanders [...] WATTS APRN.CNP * Telephone Encounter - Selma Sanders Ma - 02/24/2022 10:20 AM EDT Patient [...] weeks. Otherwise, no other concerns. Dillon Watts APRN.CNP documented in this encounterAdams [facility] Hospital12-27-2017 History of Past illness Narrative* Problem Noted Date Resolved Date Benign paroxysmal positional vertigo 11/14/2017 11/30/2021 Essential hypertension 11/30/2015 6 documented as of this encounter (statuses as of 03/22/2022) [facility] Narrative* Problem Noted Date Resolved Date Benign paroxysmal positional vertigo 11/14/2017 11/30/2021 Essential hypertension 11/30/2015 6 documented as of this encounter (statuses as of 03/23/2022) [facility] Narrative* Problem Noted Date Resolved Date Benign paroxysmal positional vertigo 11/14/2017 11/30/2021 Essential hypertension 11/30/2015 6 documented as of this encounter (statuses as of 04/24/2022) [facility] Narrative* Problem Noted Date Resolved Date Benign paroxysmal positional vertigo 11/14/2017 11/30/2021 Essential hypertension 11/30/2015 6 documented as of this encounter (statuses as of 04/26/2022) [place] [address]-27-2017 History of Past illness Narrative* Problem Noted Date Resolved Date Benign paroxysmal positional vertigo 11/14/2017 11/30/2021 Essential hypertension 11/30/2015 6 documented as of this encounter (statuses as of 05/02/2022) [facility] Narrative* Problem Noted Date Resolved Date Benign paroxysmal positional vertigo 11/14/2017 11/30/2021 Essential hypertension 11/30/2015 6 documented as of this encounter (statuses as of 05/24/2022) [place] [address]-27-2017 History of Past illness Narrative* Problem Noted Date Resolved Date Benign paroxysmal positional vertigo 11/14/2017 11/30/2021 Essential hypertension 11/30/2015 6 documented as of this encounter (statuses as of 05/31/2022) [place] [address]-27-2017 History of Past illness Narrative* Problem Noted Date Resolved Date Benign paroxysmal positional vertigo 11/14/2017 11/30/2021 Essential hypertension 11/30/2015 6 documented as of this encounter (statuses as of 06/06/2022) [facility]* Problem Noted Date Resolved Date Benign paroxysmal positional vertigo 11/14/2017 11/30/2021 Essential hypertension 11/30/2015 6 documented as of this encounter (statuses as of 06/06/2022) [facility]arrative* Problem Noted Date Resolved Date Benign paroxysmal positional vertigo 11/14/2017 11/30/2021 Essential hypertension 11/30/2015 6 documented as of this encounter (statuses as of 06/07/2022) [place] [address]-27-2017 History of Past illness Narrative* Problem Noted Date Resolved Date Benign paroxysmal positional vertigo 11/14/2017 11/30/2021 Essential hypertension 11/30/2015 6 documented as of this encounter (statuses as of 06/17/2022) [facility]* Problem Noted Date Resolved Date Benign paroxysmal positional vertigo 11/14/2017 11/30/2021 Essential hypertension 11/30/2015 6 documented as of this encounter (statuses as of 08/15/2022) [facility]* Problem Noted Date Resolved Date Benign paroxysmal positional vertigo 11/14/2017 11/30/2021 Essential hypertension 11/30/2015 6 documented as of this encounter (statuses as of 09/07/2022) [place] [address]-27-2017 History of Past illness Narrative* Problem Noted Date Resolved Date Benign paroxysmal positional vertigo 11/14/2017 11/30/2021 Essential hypertension 11/30/2015 6 documented as of this encounter (statuses as of 09/09/2022) [facility]* Problem Noted Date Resolved Date Benign paroxysmal positional vertigo 11/14/2017 11/30/2021 Essential hypertension 11/30/2015 6 documented as of this encounter (statuses as of 09/23/2022) [facility]* Problem Noted Date Resolved Date Benign paroxysmal positional vertigo 11/14/2017 11/30/2021 Essential hypertension 11/30/2015 6 documented as of this encounter (statuses as of 12/05/2022) [place] [address]-27-2017 History of Past illness Narrative* Problem Noted Date Resolved Date Benign paroxysmal positional vertigo 11/14/2017 11/30/2021 Essential hypertension 11/30/2015 6 documented as of this encounter (statuses as of 12/07/2022) [facility]* Problem Noted Date Resolved Date Benign paroxysmal positional vertigo 11/14/2017 11/30/2021 Essential hypertension 11/30/2015 6 documented as of this encounter (statuses as of 01/04/2023) [facility]* Problem Noted Date Resolved Date Benign paroxysmal positional vertigo 11/14/2017 11/30/2021 Essential hypertension 11/30/2015 6 documented as of this encounter (statuses as of 01/05/2023) [place] [address]-27-2017 History of Past illness Narrative* Problem Noted Date Resolved Date Benign paroxysmal positional vertigo 11/14/2017 11/30/2021 Essential hypertension 11/30/2015 6 documented as of this encounter (statuses as of 01/09/2023) [facility]* Problem Noted Date Resolved Date Benign paroxysmal positional vertigo 11/14/2017 11/30/2021 Essential hypertension 11/30/2015 6 documented as of this encounter (statuses as of 02/07/2023) [facility]* Problem Noted Date Resolved Date Benign paroxysmal positional vertigo 11/14/2017 11/30/2021 Essential hypertension 11/30/2015 6 documented as of this encounter (statuses as of 03/02/2023) [place] [address]-27-2017 History of Past illness Narrative* Problem Noted Date Resolved Date Benign paroxysmal positional vertigo 11/14/2017 11/30/2021 Essential hypertension 11/30/2015 6 documented as of this encounter (statuses as of 03/12/2023) [facility]* Problem Noted Date Resolved Date Benign paroxysmal positional vertigo 11/14/2017 11/30/2021 Essential hypertension 11/30/2015 6 documented as of this encounter (statuses as of 03/12/2023) [facility]* Problem Noted Date Diagnosed Date Resolved Date Benign paroxysmal positional vertigo 11/14/2017 11/30/2021 Essential hypertension 11/30/201510/24 documented as of this encounter (statuses as of 05/28/2023) [facility]* Problem Noted Date Diagnosed Date Resolved Date Benign paroxysmal positional vertigo 11/14/2017 11/30/2021 Essential hypertension 11/30/201510/24 documented as of this encounter (statuses as of 05/30/2023) [facility]* Problem Noted Date Diagnosed Date Resolved Date Benign paroxysmal positional vertigo 11/14/2017 11/30/2021 Essential hypertension 11/30/201510/24 documented as of this encounter (statuses as of 05/31/2023) [facility]* Problem Noted Date Diagnosed Date Resolved Date Benign paroxysmal positional vertigo 11/14/2017 11/30/2021 Essential hypertension 11/30/201510/24 documented as of this encounter (statuses as of 06/05/2023) [facility]* Problem Noted Date Diagnosed Date Resolved Date Benign paroxysmal positional vertigo 11/14/2017 11/30/2021 Essential hypertension 11/30/201510/24 documented as of this encounter (statuses as of 07/10/2023) [place] [address]-27-2017 History of Past illness Narrative* Problem Noted Date Diagnosed Date Resolved Date Benign paroxysmal positional vertigo 11/14/2017 11/30/2021 Essential hypertension 11/30/201510/24 documented as of this encounter (statuses as of 08/01/2023) [facility]* Problem Noted Date Diagnosed Date Resolved Date Benign paroxysmal positional vertigo 11/14/2017 11/30/2021 Essential hypertension 11/30/201510/24 documented as of this encounter (statuses as of 08/28/2023) [facility]* Problem Noted Date Diagnosed Date Resolved Date Benign paroxysmal positional vertigo 11/14/2017 11/30/2021 Essential hypertension 11/30/201510/24 documented as of this encounter (statuses as of 08/31/2023) [facility]* Problem Noted Date Diagnosed Date Resolved Date Benign paroxysmal positional vertigo 11/14/2017 11/30/2021 Essential hypertension 11/30/201510/24 documented as of this encounter (statuses as of 09/23/2023) [facility]* Problem Noted Date Diagnosed Date Resolved Date Benign paroxysmal positional vertigo 11/14/2017 11/30/2021 Essential hypertension 11/30/201510/24 documented as of this encounter (statuses as of 09/23/2023) [facility]* Problem Noted Date Diagnosed Date Resolved Date Benign paroxysmal positional vertigo 11/14/2017 11/30/2021 Essential hypertension 11/30/201510/24 documented as of this encounter (statuses as of 09/23/2023) [facility]* Problem Noted Date Diagnosed Date Resolved Date Benign paroxysmal positional vertigo 11/14/2017 11/30/2021 Essential hypertension 11/30/201510/24 documented as of this encounter (statuses as of 09/23/2023) [place] [address]-27-2017 History of Past illness Narrative* Problem Noted Date Diagnosed Date Resolved Date Benign paroxysmal positional vertigo 11/14/2017 11/30/2021 Essential hypertension 11/30/201510/24 documented as of this encounter (statuses as of 09/23/2023) [place] [address]-27-2017 History of Past illness Narrative* Problem Noted Date Diagnosed Date Resolved Date Benign paroxysmal positional vertigo 11/14/2017 11/30/2021 Essential hypertension 11/30/201510/24 documented as of this encounter (statuses as of 10/04/2023) [place] [address]-27-2017 History of Past illness Narrative* Problem Noted Date Diagnosed Date Resolved Date Benign paroxysmal positional vertigo 11/14/2017 11/30/2021 Essential hypertension 11/30/201510/24 documented as of this encounter (statuses as of 12/21/2023) [place] [address]-27-2017 History of Past illness Narrative* Problem Noted Date Diagnosed Date Resolved Date Benign paroxysmal positional vertigo 11/14/2017 11/30/2021 Essential hypertension 11/30/201510/24 documented as of this encounter (statuses as of 12/27/2023) [place] [address]-27-2017 History of Past illness Narrative* Problem Noted Date Diagnosed Date Resolved Date Benign paroxysmal positional vertigo 11/14/2017 11/30/2021 Essential hypertension 11/30/201510/24 documented as of this encounter (statuses as of 01/16/2024) [place] [id number] History of Past illness Narrative* Problem Noted Date Diagnosed Date Resolved Date Benign paroxysmal positional vertigo 11/14/2017 11/30/2021 Essential hypertension 11/30/201510/24 documented as of this encounter (statuses as of 01/23/2024) [address]27-2017 History of Past illness Narrative* Problem Noted Date Diagnosed Date Resolved Date Benign paroxysmal positional vertigo 11/14/2017 11/30/2021 Essential hypertension 11/30/201510/24 documented as of this encounter (statuses as of 01/28/2024) [address]27-2017 History of Past illness Narrative* Problem Noted Date Diagnosed Date Resolved Date Benign paroxysmal positional vertigo 11/14/2017 11/30/2021 Essential hypertension 11/30/201510/24 documented as of this encounter (statuses as of 01/30/2024) [address]27-2017 History of Past illness Narrative* Problem Noted Date Diagnosed Date Resolved Date Benign paroxysmal positional vertigo 11/14/2017 11/30/2021 Essential hypertension 11/30/201510/24 documented as of this encounter (statuses as of 02/05/2024) [address]27-2017 History of Past illness Narrative* Problem Noted Date Diagnosed Date Resolved Date Benign paroxysmal positional vertigo 11/14/2017 11/30/2021 Essential hypertension 11/30/201510/24 documented as of this encounter (statuses as of 02/07/2024) [address]27-2017 History of Past illness Narrative* Problem Noted Date Diagnosed Date Resolved Date Benign paroxysmal positional vertigo 11/14/2017 11/30/2021 Essential hypertension 11/30/201510/24 documented as of this encounter (statuses as of 02/22/2024) [address]27-2017 History of Past illness Narrative* Problem Noted Date Diagnosed Date Resolved Date Benign paroxysmal positional vertigo 11/14/2017 11/30/2021 Essential hypertension 11/30/201510/24 documented as of this encounter (statuses as of 03/06/2024) [address]27-2017 History of Past illness Narrative* Problem Noted Date Diagnosed Date Resolved Date Benign paroxysmal positional vertigo 11/14/2017 11/30/2021 Essential hypertension 11/30/201510/24 documented as of this encounter (statuses as of 03/07/2024) [facility] note* Diagnosis Onset Date Resolution Status Personal history of colonic polyps acute Carotid artery stenosis acut e Essential hypertension acute Atherosclerosis of coronary artery of [place] heart without angina pectoris chronic Hyperlipidemia chronic Peripheral vascular occlusive disease [facility] Work Phone: Evaluation note* Diagnosis Essential hypertension Unspecified essential hypertension documented in this encounter [facility] note* Diagnosis Peripheral vascular occlusive disease (HCC)- Primary Peripheral vascular disease, unspecified documented in this encounter [facility] note* Diagnosis Peripheral vascular occlusive disease (HCC) Peripheral vascular disease, unspecified documented in this encounter [facility] note* Diagnosis Essential hypertension Unspecified essential hypertension documented in this encounter [facility] note* Diagnosis Diabetes mellitus type 2 with [...] arthropathy, multiple sites Coronary artery disease involving [place] heart, unspecified vessel or lesion type, unspecified whether angina present Fatigue, unspecified type documented in this encounter [facility] note* Diagnosis Encounter for screening mammogram for malignant neoplasm of breast Other screening mammogram documented in this encounter [facility] note* Diagnosis Abnormal mammogram- Primary Abnormal mammogram, unspecified documented in this encounter [facility] note* Diagnosis Acute pain of right shoulder- Primary documented in this encounter [facility] noteNo assessment information availableW[facility] Work Phone: Evaluation note* Diagnosis Onset Date Resolution Status Carotid artery stenosis acut e [facility] Work Phone: Evaluation note* Diagnosis Injury of sternum, initial encounter- Primary Wrist injury, right, initial encounter documented in this encounter [facility] note* Diagnosis Onset Date Resolution Status Carotid artery stenosis chrome polisher vipul Atherosclerosis of coronary artery of [place] heart without angina pectoris chronic Carotid artery stenosis chrome polisher vipul Essential hypertension chron ic Hyperlipidemia chronic Peripheral vascular occlusive disease [facility] Work Phone: Evaluation note* Diagnosis Low TSH level- Primary Nonspecific abnormal results of thyroid function study Abnormal thyroid biopsy Abnormal thyroid blood test Nonspecific abnormal results of thyroid function study Borderline abnormal thyroid function test Nonspecific abnormal results of thyroid function study documented [facility] this encounter [facility] [place] [facility]* Diagnosis Acute cystitis with hematuria- Primary Acute cystitis documented in this encounter [facility] [place] [facility]* Diagnosis Onset Date Resolution Status Atherosclerosis of coronary artery of [place] heart without angina pectoris chronic Carotid artery stenosis chrome polisher vipul Essential hypertension chron ic Hyperlipidemia chronic Peripheral vascular occlusive disease [facility] Work Phone: Evaluation note* Diagnosis Diabetes mellitus [...] stage 3a (HCC) [facility] [place] [facility]* Diagnosis Diabetes mellitus type 2 with peripheral artery disease Type II or unspecified type diabetes mellitus with peripheral circulatory disorders, not stated as uncontrolled documented [facility] this encounter [facility] [place] [facility]* Diagnosis Encounter for screening mammogram for malignant neoplasm of breast- Primary Other screening mammogram [facility] [place] [facility]* Diagnosis 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) Type II or unspecified type diabetes mellitus with peripheral circulatory disorders, not stated as uncontrolled documented in this encounter [facility] note* Diagnosis Peripheral vascular occlusive disease (HCC) Peripheral vascular disease, unspecified [facility] [place] [facility]* Diagnosis Abnormal mammogram- Primary Abnormal mammogram, unspecified documented in this encounter [facility] note* Diagnosis Dysuria- Primary Acute cystitis with [...] arthropathy, multiple sites [facility] [place] [facility]* Diagnosis Onset Date Resolution Status Atherosclerosis of coronary artery of [place] heart without angina pectoris chronic Carotid artery stenosis chrome polisher vipul Essential hypertension chron ic Hyperlipidemia chronic Peripheral vascular occlusive disease chronic Carotid artery stenosis chrome polisher vipul Peripheral vascular occlusive disease [facility] Work Phone: Evaluation note* Diagnosis Onset Date Resolution Status Carotid artery stenosis chrome polisher vipul Peripheral vascular occlusive disease [facility] Work Phone: Evaluation note* Diagnosis Encounter for screening mammogram for malignant neoplasm of breast Other screening mammogram [facility] [place] [facility]* Diagnosis Abnormal mammogram Abnormal mammogram, unspecified [facility] [place] [facility]* Diagnosis Abnormal mammogram Abnormal mammogram, unspecified [facility] [place] [facility]* Diagnosis Abnormal thyroid function test Nonspecific abnormal results of thyroid function study [facility] [place] [facility]* Diagnosis Peripheral vascular occlusive disease (HCC) Peripheral vascular disease, unspecified [facility] [place] [facility]* Diagnosis Multiple thyroid nodules Nontoxic multinodular goiter [facility] [place] [facility]* Diagnosis Chronic midline low back pain without sciatica [facility] [place] [facility]* Diagnosis Chronic bilateral low back pain with bilateral sciatica- Primary [facility] [place] [facility]* Diagnosis Peripheral vascular occlusive disease (HCC) Peripheral vascular disease, unspecified [facility] Diagnosis Chronic bilateral low back pain with bilateral sciatica- Primary [facility] Diagnosis Onset Date Resolution Status Systolic murmur acute Atherosclerosis of coronary artery of [place] heart without angina pectoris chronic Essential hypertension chron ic Hyperlipidemia chronic [facility] Work Phone: Evaluation note* Diagnosis Chronic midline low back pain without sciatica- Primary [facility] Diagnosis Multiple thyroid nodules- Primary Nontoxic multinodular goiter [facility] [place] [facility]* Diagnosis Chronic bilateral low back pain with bilateral sciatica- Primary [facility] [place] [facility]* Diagnosis Chronic bilateral low back pain with bilateral sciatica- Primary [facility] [place] [facility]* Diagnosis Multiple thyroid nodules- Primary Nontoxic [...] Fatigue, unspecified type documented in this encounter [facility] note* Diagnosis Encounter for screening mammogram for malignant neoplasm of breast Other screening mammogram [facility] [place] [facility]* Diagnosis Chronic midline low back pain [...] Nontoxic multinodular goiter [facility] this [facility] [place] [facility]* Diagnosis Chronic midline low back pain without sciatica documented [facility] this [facility] [place] [facility]* Diagnosis Injury of sternum, initial encounter Wrist injury, right, initial encounter [facility] [place] [facility]* Diagnosis Acute pain of right shoulder documented [facility] this encounter [facility] [place] [facility]* Diagnosis Diabetes mellitus type 2 with [...] arthropathy, multiple sites [facility] this encounter [facility] [place] [facility]* Diagnosis Essential hypertension Unspecified essential hypertension documented in this encounter [facility] note* Diagnosis Hospital discharge follow-up- Primary Other follow-up examination Diabetic foot ulcer associated with type 2 diabetes mellitus, unspecified laterality, unspecified part of foot, unspecified ulcer stage (HCC) Abnormality of gait Falling episodes Lack of coordination documented in this encounter [facility] note* Diagnosis 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)- Primary Type II or unspecified type diabetes mellitus with peripheral circulatory disorders, not stated as uncontrolled Hyperglycemia Other abnormal glucose documented in this encounter [facility] for referral (narrative)* Diagnostic Procedure Only (Routine) - Closed Specialty Diagnoses / Procedures Referred By Viraj banegas Referred To Contact BR IMAGING Diagnoses Encounter for screening mammogram for malignant neoplasm of breast Procedures ALEJANDRO SCREENING SCREENING MAMMOGRAPHY BI 2-VIEW BREAST INC CAD Rishi Vasquez DO [address] [place] [address] [facility] [address] [place] [address] Referral ID Status Reason Start Date Expiration Date V isits Requested Visits Authorized [id number] Closed Auto-Generate d Referral 12/05/2021 01/04/2023 1 1 [facility] for referral (narrative)* Diagnostic Procedure Only (Routine) - Authorized Specialty Diagnoses / Procedures Referred By Viraj banegas Referred To Contact [facility] Diagnoses Abnormal mammogram Procedures US BREAST LTD RT US BREAST UNI REAL TIME WITH IMAGE LIMITED Dillon Watts APRN.CNP [address] [place] [address] [facility] [address] [place] [address] Referral ID Status Reason Start Date Expiration Date Visits Requested Visits Authorized [id number] Authorized Auto-Generat ed Referral 06/05/2022 07/05/2023 1 1 * Diagnostic Procedure Only (Routine) - Authorized Specialty Diagnoses / Procedures Referred By Contac t Referred To Contact [facility] Diagnoses Abnormal mammogram Procedures ALEJANDRO DIAGNOSTIC RT DIAGNOSTIC MAMMOGRAPHY COMPUTER-AIDED DETCJ RUST Dillon Watts APRN.AUTOMOTIVE BUYER [address] [place] [address] [facility] [address] [place] [address] Referral ID Status Reason Start Date Expiration Date Visits Requested Visits Authorized [id number] Authorized Auto-Generat ed Referral 06/05/2022 07/05/2023 1 1 [facility] for referral (narrative)* Diagnostic Procedure Only (Urgent) - Closed Specialty Diagnoses / Procedures [facility] To Contact X[facility] Diagnoses Acute pain of right shoulder Procedures XR SHOULDER GENERAL 3V OR MORE AP/TRUE AP/OTHER RIGHT RADEX SHOULDER COMPLETE MINIMUM 2 VIEWS Kena Sims APRN.AUTOMOTIVE BUYER [address] [place] [address] X[facility] Imaging Referral ID Status Reason Start Date Expiration Date V isits Requested Visits Authorized [id number] Closed Auto-Generate d Referral 06/17/2022 07/17/2023 1 1 [facility] for referral (narrative)* Diagnostic Procedure Only (Urgent) - Closed Specialty Diagnoses / Procedures Referred By Contac t Referred To Contact XR IMAGING Diagnoses Wrist injury, right, initial encounter Procedures XR WRIST INJURY 4V PA/LAT/OBL/SCAPH RIGHT RADEX WRIST COMPLETE MINIMUM 3 VIEWS Camille Mitchell PA-C [address] [place] [address] X[facility] Imaging Referral ID Status Reason Start Date Expiration Date V isits Requested Visits Authorized [id number] Closed Auto-Generate d Referral 08/15/2022 09/14/2023 1 1 * Diagnostic Procedure Only (Urgent) - Closed Specialty Diagnoses / Procedures Referred By Leeannaac t Referred To Contact XR IMAGING Diagnoses Injury of sternum, initial encounter Procedures XR STERNUM 2V BARAJAS/LAT RADEX STERNUM MINIMUM 2 VIEWS Camille Mitchell PA-C [address] [place] [address] Xr Imaging Referral ID Status Reason Start Date Expiration Date V isits Requested Visits Authorized [id number] Closed Auto-Generate d Referral 08/15/2022 09/14/2023 1 1 [facility] for referral (narrative)* Outpatient Procedure (Routine) - Authorized Specialty Diagnoses / Procedures Referred By Leeannaac t Referred To Contact [facility] Diagnoses Carotid atherosclerosis, bilateral Procedures US CAROTID ARTERIES [facility] DUPLEX SCAN EXTRACRANIAL ART COMPL BI STUDY Rishi Vasquez DO [address] [place] [address] [facility] [place] [address] [place] [address] Referral ID Status Reason Start Date Expiration Date Visits Requested Visits Authorized [id number] Authorized Auto-Generat ed Referral 12/05/2022 12/05/2023 1 1 [facility] for referral (narrative)* Diagnostic Procedure Only (Routine) - Pending Review Specialty Diagnoses / Procedures Referred By Leeannaac t Referred To Contact [facility] IM[facility] Diagnoses Encounter for screening mammogram for malignant neoplasm of breast Procedures ALEJANDRO SCREENING SCREENING MAMMOGRAPHY BI 2-VIEW BREAST INC CAD Clary Andres, AUTOMOTIVE BUYER [address] [place] [address] [facility] [address] [place] [address] Referral ID Status Reason Start Date Expiration Date Visits Requested Visits Authorized [id number] Pending Review Auto-Generat ed Referral 02/07/2023 03/06/2024 1 1 [facility] for referral (narrative)* Diagnostic Procedure Only (Routine) - Authorized Specialty Diagnoses / Procedures Referred By Viraj banegas Referred To Contact [facility] IMAG[facility] Diagnoses Abnormal mammogram Procedures US BREAST LTD RIGHT US BREAST UNI REAL TIME WITH IMAGE LIMITED Danyelle Tripp PA-C [address] [place] [address] [facility] [address] [place] [address] Referral ID Status Reason Start Date Expiration Date Visits Requested Visits Authorized [id number] Authorized Auto-Generat ed Referral 05/29/2023 06/27/2024 1 1 * Diagnostic Procedure Only (Routine) - Authorized Specialty Diagnoses / Procedures Referred By Viraj banegas Referred To Contact [facility] Diagnoses Abnormal mammogram Procedures ALEJANDRO DIAGNOSTIC RIGHT DIAGNOSTIC MAMMOGRAPHY COMPUTER-AIDED DETCJ UNI Danyelle Tripp PA-C [address] [place] [address] [facility] [address] [place] [address] Referral ID Status Reason Start Date Expiration Date Visits Requested Visits Authorized [id number] Authorized Auto-Generat ed Referral 05/29/2023 06/27/2024 1 1 [facility] for referral (narrative)* Diagnostic Procedure Only (Routine) - Closed Specialty Diagnoses / Procedures Referred By Viraj banegas Referred To Contact [facility] Diagnoses Encounter for screening mammogram for malignant neoplasm of breast Procedures ALEJANDRO SCREENING SCREENING MAMMOGRAPHY BI 2-VIEW BREAST INC Clary Huerta, AUTOMOTIVE BUYER [address] [place] [address] [facility] [address] [place] [address] Referral ID Status Reason Start Date Expiration Date V isits Requested Visits Authorized [id number] Closed Auto-Generate d Referral 02/07/2023 03/06/2024 1 1 [facility] for referral (narrative)* Diagnostic Procedure Only (Routine) - Closed Specialty Diagnoses / Procedures Referred By Contac t Referred To Contact [facility] IM[facility] Diagnoses Abnormal mammogram Procedures US BREAST LTD RIGHT US BREAST UNI REAL TIME WITH IMAGE LIMITED Danyelle Tripp PA-C [address] [place] [address] [facility] [address] [place] [address] Referral ID Status Reason Start Date Expiration Date V isits Requested Visits Authorized [id number] Closed Auto-Generate d Referral 05/29/2023 06/27/2024 1 1 [facility] for referral (narrative)* Diagnostic Procedure Only (Routine) - Closed Specialty Diagnoses / Procedures Referred By Contac t Referred To Contact [facility] Diagnoses Abnormal thyroid function test Procedures NM THY UPTAKE AND SCAN THYROID UPTAKE W/BLOOD FLOW SNGLE/MULT JAMARI NATALIA Rishi Vasquez DO [address] [place] [address] [facility] [address] [place] [address] Referral ID Status Reason Start Date Expiration Date V isits Requested Visits Authorized [id number] Closed Auto-Generate d Referral 12/15/2022 01/14/2024 1 1 [facility] for referral (narrative)* Diagnostic Procedure Only (Routine) - Closed Specialty Diagnoses / Procedures Referred By Contac t Referred To Contact US IMAGING Diagnoses Abnormal thyroid function test Procedures US THYROID/PARATHYROID US SOFT TISSUE HEAD & NECK REAL TIME IMGE Rishi Menon DO [address] [place] [address] [place] [address] Referral ID Status Reason Start Date Expiration Date V isits Requested Visits Authorized [id number] Closed Auto-Generate d Referral 12/15/2022 01/14/2024 1 1 [facility] for referral (narrative)* Diagnostic Procedure Only (Routine) - Closed Specialty Diagnoses / Procedures Referred By Contac t Referred To Contact XR IMAGING Diagnoses Chronic midline low back pain without sciatica Procedures XR LUMBAR GENERAL 3V AP/LAT/L5-S1 RADEX SPINE LUMBOSACRAL 2/3 VIEWS Rishi Vasquez DO [address] [place] [address] [place] [address] Referral ID Status Reason Start Date Expiration Date V isits Requested Visits Authorized [id number] Closed Auto-Generate d Referral 12/05/2023 01/03/2025 1 1 [facility] for referral (narrative)* Diagnostic Procedure Only (Urgent) - Closed Specialty Diagnoses / Procedures Referred By Contac t Referred To Contact XR IMAGING Diagnoses Wrist injury, right, initial encounter Procedures XR WRIST INJURY 4V PA/LAT/OBL/SCAPH RIGHT RADEX WRIST COMPLETE MINIMUM 3 VIEWS Camille Mitchell PA-C [address] [place] [address] [place] [address] Referral ID Status Reason Start Date Expiration Date V isits Requested Visits Authorized [id number] Closed Auto-Generate d Referral 08/15/2022 09/14/2023 1 1 * Diagnostic Procedure Only (Urgent) - Closed Specialty Diagnoses / Procedures Referred By Contac t Referred To Contact XR IMAGING Diagnoses Injury of sternum, initial encounter Procedures XR STERNUM 2V BARAJAS/LAT RADEX STERNUM MINIMUM 2 VIEWS Camille Mitchell PA-C [address] [place] [address] [place] [address] Referral ID Status Reason Start Date Expiration Date V isits Requested Visits Authorized [id number] Closed Auto-Generate d Referral 08/15/2022 09/14/2023 1 1 [facility] for referral (narrative)* Diagnostic Procedure Only (Urgent) - Closed Specialty Diagnoses / Procedures Referred By Contac t Referred To Contact XR IMAGING Diagnoses Acute pain of right shoulder Procedures XR SHOULDER GENERAL 3V OR MORE AP/TRUE AP/OTHER RIGHT RADEX SHOULDER COMPLETE MINIMUM 2 VIEWS Kena Schrader APRN.CNP [address] [place] [address] [place] [address] Referral ID Status Reason Start Date Expiration Date V isits Requested Visits Authorized [id number] Closed Auto-Generate d Referral 06/17/2022 07/17/2023 1 1 [facility] for referral (narrative)* Diagnostic Procedure Only (Routine) - Authorized Specialty Diagnoses / Procedures Referred By Viraj t Referred To Contact BR IMAG[facility] Diagnoses Encounter for screening mammogram for malignant neoplasm of breast Procedures ALEJANDRO SCREENING W BEN SCREENING DIGITAL BREAST TOMOSYNTHESIS BI SCREENING MAMMOGRAPHY BI 2-VIEW BREAST INC CAD Rishi Vasquez DO [address] [place] [address] [facility] [address] [place] [address] Referral ID Status Reason Start Date Expiration Date Visits Requested Visits Authorized [id number] Authorized Auto-Generat ed Referral 12/05/2024 01/04/2026 1 1 [facility] for referral (narrative)No reason for referral information availableW[facility] Healthcare Work Phone: Rewvns for visit Narrative* Diagnostic Procedure Only (Routine) - Closed Specialty Diagnoses / Procedures Referred By Viraj t Referred To Contact BR IMAG[facility] Diagnoses Encounter for screening mammogram for malignant neoplasm of breast Procedures ALEJANDRO SCREENING SCREENING MAMMOGRAPHY BI 2-VIEW BREAST INC CAD Rishi Vasquez, DO [address] [place] [address] [facility] [address] [place] [address] Referral ID Status Reason Start Date Expiration Date V isits Requested Visits Authorized [id number] Closed Auto-Generate d Referral 12/05/2021 01/04/2023 1 1 [facility] for visit Narrative* Diagnostic Procedure Only (Routine) - Closed Specialty Diagnoses / Procedures Referred By Viraj t Referred To Contact BR IMAG[facility] Diagnoses Encounter for screening mammogram for malignant neoplasm of breast Procedures ALEJANDRO SCREENING SCREENING MAMMOGRAPHY BI 2-VIEW BREAST INC Clary Huerta APRN.AUTOMOTIVE BUYER [address] [place] [address] [facility] [address] [place] [address] Referral ID Status Reason Start Date Expiration Date V isits Requested Visits Authorized [id number] Closed Auto-Generate d Referral 02/07/2023 03/06/2024 1 1 [facility] for visit Narrative* Diagnostic Procedure Only (Routine) - Closed Specialty Diagnoses / Procedures Referred By Viraj t Referred To Contact BR [facility]ING Diagnoses Abnormal mammogram Procedures ALEJANDRO DIAGNOSTIC RIGHT DIAGNOSTIC MAMMOGRAPHY COMPUTER-AIDED DETCJ UNI Danyelle Tripp PA-C [address] [place] [address] [facility] [address] [place] [address] Referral ID Status Reason Start Date Expiration Date V isits Requested Visits Authorized [id number] Closed Auto-Generate d Referral 05/29/2023 06/27/2024 1 1 [facility] for visit Narrative* Diagnostic Procedure Only (Routine) - Closed Specialty Diagnoses / Procedures Referred By Viraj banegas Referred To Contact MOLECULAR & FUNCTIONAL IMAGING Diagnoses Abnormal thyroid function test Procedures NM THY UPTAKE AND SCAN THYROID UPTAKE W/BLOOD FLOW SNGLE/MULT JAMARI NATALIA Rishi Vasquez L, DO [address] [place] [address] Molecular [facility] Functional [facility] [address] [place] [address] Referral ID Status Reason Start Date Expiration Date V isits Requested Visits Authorized [id number] Closed Auto-Generate d Referral 12/15/2022 01/14/2024 1 1 [facility] for visit Narrative* Diagnostic Procedure Only (Routine) - Closed Specialty Diagnoses / Procedures Referred By Contac t Referred To Contact [facility] Diagnoses Encounter for screening mammogram for malignant neoplasm of breast Procedures ALEJANDRO SCREENING W BEN SCREENING DIGITAL BREAST TOMOSYNTHESIS BI SCREENING MAMMOGRAPHY BI 2-VIEW BREAST INC CAD Rishi Vasquez L, DO [address] [place] [address] [facility] [address] [place] [address] Referral ID Status Reason Start Date Expiration Date V isits Requested Visits Authorized [id number] Closed Auto-Generate d Referral 12/05/2023 01/03/2025 1 1 [facility] for visit Narrative* Diagnostic Procedure Only (Routine) - Closed Specialty Diagnoses / Procedures Referred By Contac t Referred To Contact XR IMAGING Diagnoses Chronic midline low back pain without sciatica Procedures XR LUMBAR GENERAL 3V AP/LAT/L5-S1 RADEX SPINE LUMBOSACRAL 2/3 VIEWS Rishi Vasquez, DO [address] [place] [address] [place] [address] Referral ID Status Reason Start Date Expiration Date V isits Requested Visits Authorized [id number] Closed Auto-Generate d Referral 12/05/2023 01/03/2025 1 1 [facility] for visit Narrative* Diagnostic Procedure Only (Urgent) - Closed Specialty Diagnoses / Procedures Referred By Contac t Referred To Contact XR IMAGING Diagnoses Wrist injury, right, initial encounter Procedures XR WRIST INJURY 4V PA/LAT/OBL/SCAPH RIGHT RADEX WRIST COMPLETE MINIMUM 3 VIEWS Camille Mitchell, PA-C [address] [place] [address] [place] [address] Referral ID Status Reason Start Date Expiration Date V isits Requested Visits Authorized [id number] Closed Auto-Generate d Referral 08/15/2022 09/14/2023 1 1 [facility] for visit Narrative* Diagnostic Procedure Only (Urgent) - Closed Specialty Diagnoses / Procedures Referred By Contac t Referred To Contact XR IMAGING Diagnoses Acute pain of right shoulder Procedures XR SHOULDER GENERAL 3V OR MORE AP/TRUE AP/OTHER RIGHT RADEX SHOULDER COMPLETE MINIMUM 2 VIEWS Kena Schrader, SPIDER ASSEMBLER.AUTOMOTIVE BUYER [address] [place] [address] [place] [address] Referral ID Status Reason Start Date Expiration Date V isits Requested Visits Authorized [id number] Closed Auto-Generate d Referral 06/17/2022 07/17/2023 1 1 [facility] Chief Complaint and Reason for Visit Chief Complaint 2020 CARDIAC REHAB P HASE III MAINTENANCE-SELF PAY PHASE III MAINTENANCE SELF-PAY COLONOSCOPY PHASE III MAINTENANCE SELF-PAY 6 M FU / R/S FROM 2-7 MMM PHASE III MAINTENANCE SELF-PAY Reason for Visit Personal history of colonic polyps Carotid artery stenosis Essential hypertension Atherosclerosis of coronary artery of [place] without angina pectoris Hyperlipidemia Peripheral vascular occlusive disease Chief Complaint PHASE III MA INTENANCE SELF-PAY COLONOSCOPY PHASE III MAINTENANCE SELF-PAY 6 M FU / R/S FROM 2-7 MMM PHASE III MAINTENANCE SELF-PAY PHASE III MAINTENANCE SELF-PAY Reason for Visit Personal history of colonic polyps Carotid artery stenosis Essential hypertension Atherosclerosis of coronary artery of [place] without angina pectoris Hyperlipidemia Peripheral vascular occlusive disease Chief Complaint COLONOSCOPY PHASE III MAINTENANCE SELF-PAY 6 M FU / R/S FROM 2-7 MMM PHASE III MAINTENANCE SELF-PAY PHASE III MAINTENANCE SELF-PAY PHASE III MAINTENANCE SELF-PAY Reason for Visit Personal history of colonic polyps Carotid artery stenosis Essential hypertension Atherosclerosis of coronary artery of [place] without angina pectoris Hyperlipidemia Peripheral vascular [...] MA INTENANCE SELF-PAY PHASE III MAINTENANCE SELF-PAY CAROTID STENOSIS BILAT CAROTID U/S 06/22 PHASE III MAINTENANCE SELF-PAY 6 M FU PHASE III MAINTENANCE SELF-PAY Reason for Visit Carotid artery steno sis Atherosclerosis of coronary artery of [place] without angina pectoris Carotid artery stenosis Essential hypertension Hyperlipidemia Peripheral vascular occlusive disease Chief Complaint PHASE III MA INTENANCE SELF-PAY CAROTID STENOSIS BILAT CAROTID U/S 06/22 PHASE III MAINTENANCE SELF-PAY 6 M FU PHASE III MAINTENANCE SELF-PAY PHASE III MAINTENANCE SELF-PAY Reason for Visit Carotid artery steno sis Atherosclerosis of coronary artery of [place] without angina pectoris Carotid artery stenosis Essential hypertension Hyperlipidemia Peripheral vascular occlusive disease Chief Complaint CAROTID STENOSIS SADIE AT CAROTID U/S 06/22 PHASE III MAINTENANCE SELF-PAY 6 M FU PHASE III MAINTENANCE SELF-PAY PHASE III MAINTENANCE SELF-PAY PHASE III MAINTENANCE SELF-PAY Reason for Visit Carotid artery steno sis Atherosclerosis of coronary artery of [place] without angina pectoris Carotid artery stenosis Essential hypertension Hyperlipidemia Peripheral vascular occlusive disease Chief Complaint PHASE III MA INTENANCE SELF-PAY 6 M FU PHASE III MAINTENANCE SELF-PAY PHASE III MAINTENANCE SELF-PAY PHASE III MAINTENANCE SELF-PAY PVD PHASE III MAINTENANCE SELF-PAY Reason for Visit Atherosclerosis of c oronary artery of [place] heart without angina pectoris Carotid artery stenosis Essential hypertension Hyperlipidemia Peripheral vascular occlusive disease Chief Complaint 6 M FU PHASE III MAINTENANCE SELF-PAY PHASE III MAINTENANCE SELF-PAY PHASE III MAINTENANCE SELF-PAY PVD PHASE III MAINTENANCE SELF-PAY Reason for Visit Atherosclerosis of c oronary artery of [place] heart without angina pectoris Carotid artery stenosis [...] Visit Atherosclerosis of c oronary artery of [place] heart without angina pectoris Carotid artery stenosis Essential hypertension Hyperlipidemia Peripheral vascular occlusive disease Chief Complaint 2022 PH III Maintena nce Self-Pay 2022 PH III Maintenance Self-Pay 1 Y FU/Prev PFM Pt 2022 PH III Maintenance Self-Pay CAROTID STENOSIS 2022 PH III Maintenance Self-Pay Reason for Visit Atherosclerosis of c oronary artery of [place] heart without angina pectoris Carotid artery stenosis Essential hypertension Hyperlipidemia Peripheral vascular occlusive disease Chief Complaint 2022 PH III Maintena nce Self-Pay 1 Y FU/Prev PFM Pt 2022 PH III Maintenance Self-Pay CAROTID STENOSIS 2022 PH III Maintenance Self-Pay CAROTID YEARLY CHECK 2022 PH III Maintenance Self-Pay Reason for Visit Atherosclerosis of c oronary artery of [place] heart without angina pectoris Carotid artery stenosis [...] Visit Atherosclerosis of c oronary artery of [place] heart without angina pectoris Carotid artery stenosis [...] Systolic murmur Atherosclerosis of coronary artery of [place] without angina pectoris Essential hypertension Hyperlipidemia Chief Complaint 2023 PH3 MAINTENANCE SELF PAY 2023 PH3 MAINTENANCE SELF PAY 9 M FU/PREV PFM 2023 PH3 MAINTENANCE SELF PAY Cardiac murmur, unspecified 2023 PH3 MAINTENANCE SELF PAY Reason for Visit Systolic murmur Atherosclerosis of coronary artery of [place] without angina pectoris Essential hypertension Hyperlipidemia [...] 2025 4:25pm Chronic wound of extremity March 07 025 4:25pm Osteomyelitis of left foot March 07 025 4:25pm Atherosclerosis of [place] of both lower extremities with [...] mellitus with polyneuropathy Ap 2024 5:26pm Hyperlipidemia Mandie 23rd, 2025 5:2 6pm Osteomyelitis of left foot March 11 5:26pm Atherosclerosis of [place] of both lower extremities with [...] April 03, 2025 10:32 am Atherosclerosis of [place] arteries of [place] April [...] foot March 07 025 4:25pm Atherosclerosis of [place] of both lower extremities with [...] left foot March 11 5:26pm Atherosclerosis of [place] of both lower extremities with [...] April 03, 2025 10:32 am Atherosclerosis of [place] arteries of [place] April 15, 2025 10:51am Atherosclerosis of [place] of [place] April 15, 2025 4:38pm Chief [...] April 03, 2025 10:32 am Atherosclerosis of [place] [facility] [place] April 15, 2025 10:51am Atherosclerosis of [place] arteries of [facility] [place] April 15, 2025 4:38pm CAROTID [...] April 03, 2025 10:32 am Atherosclerosis of [place] arteries of [place] April 15, 2025 10:51am Atherosclerosis of [place] arteries of [place] April [...] April 03, 2025 10:32 am Atherosclerosis of [place] arteries of [place] April 15, 2025 10:51am Atherosclerosis of [place] arteries of [place] April [...] foot March 07 025 4:25pm Atherosclerosis of [place] of both lower extremities with [...] 5:2 6pm Osteomyelitis of left foot March 11, 025 5:26pm Atherosclerosis of [place] of both lower extremities with [...] 2025 9:17am Atherosclerosis of coronary artery of [place] heart without angina pectoris May 07, 2025 9:17am Essential hypertension May 07, 2025 9 :17am Hyperlipidemia May 07, 2025 9:17 am Chief Complaint Admit Date 2024 PH3 maintenance-self [...] April 03, 2025 10:32 am Atherosclerosis of [place] arteries of [place] April 15, 2025 10:51am Atherosclerosis of [place] arteries of [place] April 15, 2025 4:38pm CAROTID STENOSIS April 20, 2025 1:23p m 2024 PH3 maintenance-self pay April 23, 2025 8:00am NONTOXIC GOITER April 27, 2025 12:38 pm 1 Y FU May 07, 2025 9:17 am PRE OP May 08, 2025 7:11 am PRE OP May 11, 2025 8:28 am Chief Complaint Admit Date 2024 PH3 maintenance-self pay January 8:00am OSTEIOMYELITIS LEFT FOOT 5TH DIGIT February 16, 2025 5:28pm 2024 PH3 maintenance-self pay February 17, 2025 6:23am ADULT FTT, FALLS, SHAYY, RHABDO, UTI March 07, 2025 4:25pm ADULT FTT, FALLS, SAHYY, RHABDO, UTI March 08, 2025 7:40am ADULT [...] April 03, 2025 10:32 am Atherosclerosis of [place] arteries of [place] April 15, 2025 10:51am Atherosclerosis of [place] arteries of [place] April 15, 2025 4:38pm CAROTID STENOSIS April 20, 2025 1:23p m 2024 PH3 maintenance-self pay April 23, 2025 8:00am NONTOXIC GOITER April 27, 2025 12:38 pm 1 Y FU May 07, 2025 9:17 am PRE OP May 08, 2025 7:11 am PRE OP May 11, 2025 8:28 am Discuss Surgery May 13, 2025 3:35 pm Family History No Family History Records Found Relationship Condition Age at Onset Recorded Date/T asad father Coronary artery disease Unknown Cardiac disease Unknown Hypertension Unknown Cerebrovascular accident (CVA) Unknown Relationship Condition Age at Onset Recorded Date/T asad father Coronary artery disease Unknown Cardiac disease Unknown Hypertension Unknown Cerebrovascular accident (CVA) Unknown mother Chronic obstructive pulmonary disease Unk nown Heart failure Unknown Advance Directives No Advanced Directives Records Found Advance Directive Response Recorded Date/ Time Advance Directives Yes October 1:55pm Living Will Yes January 18, 2022 10:55am Power of Hygiene Assistant Yes January 18 10:55am Documents on File Type Date Recorded Patient Second Rigger Expl anation Advance Directive(s) Advance Directive(s) 10/25/2016 10:12 AM Advance Directive(s) 10/25/2016 10:01 AM Advance Directive(s) 10/11/2016 4:06 PM Documents on File Type Date Recorded Patient Second Rigger Expl anation Advance Directive(s) Advance Directive(s) 10/25/2016 10:12 AM Advance Directive(s) 10/25/2016 10:01 AM Advance Directive(s) 10/11/2016 4:06 PM Documents on File Type Date Recorded Patient Second Rigger Expl anation Advance Directive(s) 10/25/2016 10:01 AM Documents on File Type Date Recorded Patient Second Rigger Expl anation Advance Directive(s) 10/25/2016 10:01 AM Advance Directive Response Recorded Date/ Time Advance Directives Yes October 12:55pm Living Will Yes January 18, 2022 9:55am Power of Hygiene Assistant Yes January 18 9:55am Advance Directive Response Recorded Date/ Time Advance Directives Yes February 11, 024 3:27pm Living Will Yes February 12, 2024 3:27pm Power of Hygiene Assistant Yes February 11 3:27pm Advance Directive Response Recorded Date/ Time Living Will Yes October 19 1:13am Do you have a Healthcare Power of Hygiene Assistant? Yes October 19, 2024 1:13am Advance Directives Yes April 02 9:13am Advance Directive Response Recorded Date/ Time Living Will Yes October 19 1:13am Do you have a Healthcare Power of Hygiene Assistant? Yes October 19, 2024 1:13am Living Will No March 07, 2025 1:48pm Do you have a Healthcare Power of Hygiene Assistant? No March 07, 2025 1:48pm Advance Directives Yes April 02 9:13am Advance Directive Response Recorded Date/ Time Do you have a Healthcare Pow er of Hygiene Assistant? Yes March 12, 2025 11:42am Name of Medical Power of Hygiene Assistant Julianne Louise n, sister March 12, 2025 11:42am Living Will No March 07, 2025 5:48pm Do you have a Healthcare Pow er of Hygiene Assistant? No March 07, 2025 5:48pm Advance Directives Yes April 02 9:13am Advance Directive Response Recorded Date/ Time Do you have a Healthcare Pow er of Hygiene Assistant? Yes March 12, 2025 11:42am Name of Medical Power of Hygiene Assistant Julianne Louise n, sister March 12, 2025 11:42am Advance Directives on File Yes March 202024 11:26am Living Will Yes April 15, 2025 1 1:26am Do you have a Healthcare Pow er of Hygiene Assistant? Yes April 15, 2025 11:26am Name of Medical Power of Hygiene Assistant Julianne Louise n April 15, 2025 11:26am Advance Directives Yes April 15 11:26am Living Will No March 07, 2025 5:48pm Do you have a Healthcare Pow er of Hygiene Assistant? No March 07, 2025 5:48pm Advance Directive Response Recorded Date/ Time Do you have a Healthcare Pow er of Hygiene Assistant? Yes March 12, 2025 11:42am Name of Medical Power of Hygiene Assistant Julianne Louise n, sister March 12, 2025 11:42am Advance Directives on File Yes March 202024 11:26am Living Will Yes April 15, 2025 1 1:26am Do you have a Healthcare Pow er of Hygiene Assistant? Yes April 15, 2025 11:26am Name of Medical Power of Hygiene Assistant Julianne Louise n April 15, 2025 11:26am Advance Directives Yes April 15 11:26am Living Will Yes April 02, 2024 9 :13am Do you have a Healthcare Pow er of Hygiene Assistant? Yes April 02, 2024 9:13am Living Will No March 07, 2025 5:48pm Do you have a Healthcare Pow er of Hygiene Assistant? No March 07, 2025 5:48pm Reason for Referral Specialty Diagnoses / Procedures Referred By Contac t Referred To Contact [facility] Diagnoses Chronic midline low back pain without sciatica Procedures CONSULT TO PHYSICAL THERAPY PHYSICAL THERAPY EVALUATION HIGH COMPLEX 45 MINS Rishi Vasquez, DO [address] [place] [address] [facility] [place] [address] [place] [address] Referral ID Status Reason Start Date Expiration Date Visits Requested Visits Authorized [id number] Authorized Auto-Generat ed Referral 11/19/2023 11/18/2024 99 99 Specialty Diagnoses / Procedures Referred By Contac t Referred To Contact General Surgery Diagnoses Multiple thyroid nodules Procedures CONSULT TO GENERAL SURGERY OFFICE/OUTPATIENT [facility] MDM 60 MINUTES Rishi Vasquez, DO [address] [place] [address] Referral ID Status Reason Start Date Expiration Date Visits Requested Visits Authorized [id number] Authorized PCP Requested Referral 01/10/2024 01/09/2025 1 1 Specialty Diagnoses / Procedures Referred By Contac t Referred To Contact Pain Management Diagnoses Chronic midline low back pain without sciatica DDD (degenerative disc disease), lumbar Procedures CONSULT TO PAIN MGT OFFICE/OUTPATIENT [facility] MDM 60 MINUTES Rishi Vasquez, DO [address] [place] [address] Referral ID Status Reason Start Date Expiration Date Visits Requested Visits Authorized [id number] Authorized PCP Requested Referral 06/04/2024 06/04/2025 1 [...] or prosecute any alcohol or drug abuse patient.[facility] the event this information is protected by the Federal Confidentiality of Alcohol and Drug Abuse Patient Records regulations: The Federal rules restrict any use of the information to criminally investigate or prosecute any alcohol or drug abuse patient.[facility] the event this information is protected by the Federal Confidentiality of Alcohol and Drug Abuse Patient Records regulations: The Federal rules restrict any use of the information to criminally investigate or prosecute any alcohol or drug abuse patient.[facility] the event this information is protected by the Federal Confidentiality of Alcohol and Drug Abuse Patient Records regulations: The Federal rules restrict any use of the information to criminally investigate or prosecute any alcohol or drug abuse patient.[facility] the event this information is protected by the Federal Confidentiality of Alcohol and Drug Abuse Patient Records regulations: The Federal rules restrict any use of the information to criminally investigate or prosecute any alcohol or drug abuse patient.[facility] the event this information is protected by the Federal Confidentiality of Alcohol and Drug Abuse Patient Records regulations: The Federal rules restrict any use of the information to criminally investigate or prosecute any alcohol or drug abuse patient.[facility] the event this information is protected by the Federal Confidentiality of Alcohol and Drug Abuse Patient Records regulations: The Federal rules restrict any use of the information to criminally investigate or prosecute any alcohol or drug abuse patient.[facility] the event this information is protected by the Federal Confidentiality of Alcohol and Drug Abuse Patient Records regulations: The Federal rules restrict any use of the information to criminally investigate or prosecute any alcohol or drug abuse patient.[facility] the event this information is protected by the Federal Confidentiality of Alcohol and Drug Abuse Patient Records regulations: The Federal rules restrict any use of the information to criminally investigate or prosecute any alcohol or drug abuse patient.[facility] the event this information is protected by the Federal Confidentiality of Alcohol and Drug Abuse Patient Records regulations: The Federal rules restrict any use of the information to criminally investigate or prosecute any alcohol or drug abuse patient.[facility] the event this information is protected by the Federal Confidentiality of Alcohol and Drug Abuse Patient Records regulations: The Federal rules restrict any use of the information to criminally investigate or prosecute any alcohol or drug abuse patient.[facility] the event this information is protected by the Federal Confidentiality of Alcohol and Drug Abuse Patient Records regulations: The Federal rules restrict any use of the information to criminally investigate or prosecute any alcohol or drug abuse patient.[facility] the event this information is protected by the Federal Confidentiality of Alcohol and Drug Abuse Patient Records regulations: The Federal rules restrict any use of the information to criminally investigate or prosecute any alcohol or drug abuse patient.[facility] the event this information is protected by the Federal Confidentiality of Alcohol and Drug Abuse Patient Records regulations: The Federal rules restrict any use of the information to criminally investigate or prosecute any alcohol or drug abuse patient.[facility] the event this information is protected by the Federal Confidentiality of Alcohol and Drug Abuse Patient Records regulations: The Federal rules restrict any use of the information to criminally investigate or prosecute any alcohol or drug abuse patient.[facility] the event this information is protected by the Federal Confidentiality of Alcohol and Drug Abuse Patient Records regulations: The Federal rules restrict any use of the information to criminally investigate or prosecute any alcohol or drug abuse patient.[facility] the event this information is protected by the Federal Confidentiality of Alcohol and Drug Abuse Patient Records regulations: The Federal rules restrict any use of the information to criminally investigate or prosecute any alcohol or drug abuse patient.[facility] the event this information is protected by the Federal Confidentiality of Alcohol and Drug Abuse Patient Records regulations: The Federal rules restrict any use of the information to criminally investigate or prosecute any alcohol or drug abuse patient.[facility]In the event this information is protected by the Federal Confidentiality of Alcohol and Drug Abuse Patient Records regulations: The Federal rules restrict any use of the information to criminally investigate or prosecute any alcohol or drug abuse patient.[facility]In the event this information is protected by the Federal Confidentiality of Alcohol and Drug Abuse Patient Records regulations: The Federal rules restrict any use of the information to criminally investigate or prosecute any alcohol or drug abuse patient.[facility]In the event this information is protected by the Federal Confidentiality of Alcohol and Drug Abuse Patient Records regulations: The Federal rules restrict any use of the information to criminally investigate or prosecute any alcohol or drug abuse patient.[facility]In the event this information is protected by the Federal Confidentiality of Alcohol and Drug Abuse Patient Records regulations: The Federal rules restrict any use of the information to criminally investigate or prosecute any alcohol or drug abuse patient.[facility]In the event this information is protected by the Federal Confidentiality of Alcohol and Drug Abuse Patient Records regulations: The Federal rules restrict any use of the information to criminally investigate or prosecute any alcohol or drug abuse patient.[facility]In the event this information is protected by the Federal Confidentiality of Alcohol and Drug Abuse Patient Records regulations: The Federal rules restrict any use of the information to criminally investigate or prosecute any alcohol or drug abuse patient.[facility] the event this information is protected by the Federal Confidentiality of Alcohol and Drug Abuse Patient Records regulations: The Federal rules restrict any use of the information to criminally investigate or prosecute any alcohol or drug abuse patient.[facility] the event this information is protected by the Federal Confidentiality of Alcohol and Drug Abuse Patient Records regulations: The Federal rules restrict any use of the information to criminally investigate or prosecute any alcohol or drug abuse patient.[facility]In the event this information is protected by the Federal Confidentiality of Alcohol and Drug Abuse Patient Records regulations: The Federal rules restrict any use of the information to criminally investigate or prosecute any alcohol or drug abuse patient.[facility]In the event this information is protected by the Federal Confidentiality of Alcohol and Drug Abuse Patient Records regulations: The Federal rules restrict any use of the information to criminally investigate or prosecute any alcohol or drug abuse patient.[facility]In the event this information is protected by the Federal Confidentiality of Alcohol and Drug Abuse Patient Records regulations: The Federal rules restrict any use of the information to criminally investigate or prosecute any alcohol or drug abuse patient.[facility]In the event this information is protected by the Federal Confidentiality of Alcohol and Drug Abuse Patient Records regulations: The Federal rules restrict any use of the information to criminally investigate or prosecute any alcohol or drug abuse patient.[facility] HospitalIn the event this information is protected by the Federal Confidentiality of Alcohol and Drug Abuse Patient Records regulations: The Federal rules restrict any use of the information to criminally investigate or prosecute any alcohol or drug abuse patient.[facility] HospitalIn the event this information is protected by the Federal Confidentiality of Alcohol and Drug Abuse Patient Records regulations: The Federal rules restrict any use of the information to criminally investigate or prosecute any alcohol or drug abuse patient.[facility] HospitalIn the event this information is protected by the Federal Confidentiality of Alcohol and Drug Abuse Patient Records regulations: The Federal rules restrict any use of the information to criminally investigate or prosecute any alcohol or drug abuse patient.[facility] HospitalIn the event this information is protected by the Federal Confidentiality of Alcohol and Drug Abuse Patient Records regulations: The Federal rules restrict any use of the information to criminally investigate or prosecute any alcohol or drug abuse patient.[facility] HospitalIn the event this information is protected by the Federal Confidentiality of Alcohol and Drug Abuse Patient Records regulations: The Federal rules restrict any use of the information to criminally investigate or prosecute any alcohol or drug abuse patient.[facility] HospitalIn the event this information is protected by the Federal Confidentiality of Alcohol and Drug Abuse Patient Records regulations: The Federal rules restrict any use of the information to criminally investigate or prosecute any alcohol or drug abuse patient.[facility] HospitalIn the event this information is protected by the Federal Confidentiality of Alcohol and Drug Abuse Patient Records regulations: The Federal rules restrict any use of the information to criminally investigate or prosecute any alcohol or drug abuse patient.[facility] HospitalIn the event this information is protected by the Federal Confidentiality of Alcohol and Drug Abuse Patient Records regulations: The Federal rules restrict any use of the information to criminally investigate or prosecute any alcohol or drug abuse patient.[facility] HospitalIn the event this information is protected by the Federal Confidentiality of Alcohol and Drug Abuse Patient Records regulations: The Federal rules restrict any use of the information to criminally investigate or prosecute any alcohol or drug abuse patient.[facility] HospitalIn the event this information is protected by the Federal Confidentiality of Alcohol and Drug Abuse Patient Records regulations: The Federal rules restrict any use of the information to criminally investigate or prosecute any alcohol or drug abuse patient.[facility] HospitalIn the event this information is protected by the Federal Confidentiality of Alcohol and Drug Abuse Patient Records regulations: The Federal rules restrict any use of the information to criminally investigate or prosecute any alcohol or drug abuse patient.[facility] HospitalIn the event this information is protected by the Federal Confidentiality of Alcohol and Drug Abuse Patient Records regulations: The Federal rules restrict any use of the information to criminally investigate or prosecute any alcohol or drug abuse patient.[facility] HospitalIn the event this information is protected by the Federal Confidentiality of Alcohol and Drug Abuse Patient Records regulations: The Federal rules restrict any use of the information to criminally investigate or prosecute any alcohol or drug abuse patient.[facility] HospitalIn the event this information is protected by the Federal Confidentiality of Alcohol and Drug Abuse Patient Records regulations: The Federal rules restrict any use of the information to criminally investigate or prosecute any alcohol or drug abuse patient.[facility] HospitalIn the event this information is protected by the Federal Confidentiality of Alcohol and Drug Abuse Patient Records regulations: The Federal rules restrict any use of the information to criminally investigate or prosecute any alcohol or drug abuse patient.[facility] the event this information is protected by the Federal Confidentiality of Alcohol and Drug Abuse Patient Records regulations: The Federal rules restrict any use of the information to criminally investigate or prosecute any alcohol or drug abuse patient.[facility] HospitalIn the event this information is protected by the Federal Confidentiality of Alcohol and Drug Abuse Patient Records regulations: The Federal rules restrict any use of the information to criminally investigate or prosecute any alcohol or drug abuse patient.[facility] HospitalIn the event this information is protected by the Federal Confidentiality of Alcohol and Drug Abuse Patient Records regulations: The Federal rules restrict any use of the information to criminally investigate or prosecute any alcohol or drug abuse patient.[facility]In the event this information is protected by the Federal Confidentiality of Alcohol and Drug Abuse Patient Records regulations: The Federal rules restrict any use of the information to criminally investigate or prosecute any alcohol or drug abuse patient.[facility] HospitalIn the event this information is protected by the Federal Confidentiality of Alcohol and Drug Abuse Patient Records regulations: The Federal rules restrict any use of the information to criminally investigate or prosecute any alcohol or drug abuse patient.[facility] HospitalIn the event this information is protected by the Federal Confidentiality of Alcohol and Drug Abuse Patient Records regulations: The Federal rules restrict any use of the information to criminally investigate or prosecute any alcohol or drug abuse patient.[facility] HospitalIn the event this information is protected by the Federal Confidentiality of Alcohol and Drug Abuse Patient Records regulations: The Federal rules restrict any use of the information to criminally investigate or prosecute any alcohol or drug abuse patient.[facility] HospitalIn the event this information is protected by the Federal Confidentiality of Alcohol and Drug Abuse Patient Records regulations: The Federal rules restrict any use of the information to criminally investigate or prosecute any alcohol or drug abuse patient.[facility] HospitalIn the event this information is protected by the Federal Confidentiality of Alcohol and Drug Abuse Patient Records regulations: The Federal rules restrict any use of the information to criminally investigate or prosecute any alcohol or drug abuse patient.[facility] HospitalIn the event this information is protected by the Federal Confidentiality of Alcohol and Drug Abuse Patient Records regulations: The Federal rules restrict any use of the information to criminally investigate or prosecute any alcohol or drug abuse patient.[facility] HospitalIn the event this information is protected by the Federal Confidentiality of Alcohol and Drug Abuse Patient Records regulations: The Federal rules restrict any use of the information to criminally investigate or prosecute any alcohol or drug abuse patient.[facility] HospitalIn the event this information is protected by the Federal Confidentiality of Alcohol and Drug Abuse Patient Records regulations: The Federal rules restrict any use of the information to criminally investigate or prosecute any alcohol or drug abuse patient.[facility] HospitalIn the event this information is protected by the Federal Confidentiality of Alcohol and Drug Abuse Patient Records regulations: The Federal rules restrict any use of the information to criminally investigate or prosecute any alcohol or drug abuse patient.[facility] HospitalIn the event this information is protected by the Federal Confidentiality of Alcohol and Drug Abuse Patient Records regulations: The Federal rules restrict any use of the information to criminally investigate or prosecute any alcohol or drug abuse patient.[facility] HospitalIn the event this information is protected by the Federal Confidentiality of Alcohol and Drug Abuse Patient Records regulations: The Federal rules restrict any use of the information to criminally investigate or prosecute any alcohol or drug abuse patient.[facility] HospitalIn the event this information is protected by the Federal Confidentiality of Alcohol and Drug Abuse Patient Records regulations: The Federal rules restrict any use of the information to criminally investigate or prosecute any alcohol or drug abuse patient.[facility] HospitalIn the event this information is protected by the Federal Confidentiality of Alcohol and Drug Abuse Patient Records regulations: The Federal rules restrict any use of the information to criminally investigate or prosecute any alcohol or drug abuse patient.[facility] HospitalIn the event this information is protected by the Federal Confidentiality of Alcohol and Drug Abuse Patient Records regulations: The Federal rules restrict any use of the information to criminally investigate or prosecute any alcohol or drug abuse patient.[facility] HospitalIn the event this information is protected by the Federal Confidentiality of Alcohol and Drug Abuse Patient Records regulations: The Federal rules restrict any use of the information to criminally investigate or prosecute any alcohol or drug abuse patient.[facility] HospitalIn the event this information is protected by the Federal Confidentiality of Alcohol and Drug Abuse Patient Records regulations: The Federal rules restrict any use of the information to criminally investigate or prosecute any alcohol or drug abuse patient.[facility] HospitalIn the event this information is protected by the Federal Confidentiality of Alcohol and Drug Abuse Patient Records regulations: The Federal rules restrict any use of the information to criminally investigate or prosecute any alcohol or drug abuse patient.[facility] HospitalIn the event this information is protected by the Federal Confidentiality of Alcohol and Drug Abuse Patient Records regulations: The Federal rules restrict any use of the information to criminally investigate or prosecute any alcohol or drug abuse patient.[facility] HospitalIn the event this information is protected by the Federal Confidentiality of Alcohol and Drug Abuse Patient Records regulations: The Federal rules restrict any use of the information to criminally investigate or prosecute any alcohol or drug abuse patient.[facility] HospitalIn the event this information is protected by the Federal Confidentiality of Alcohol and Drug Abuse Patient Records regulations: The Federal rules restrict any use of the information to criminally investigate or prosecute any alcohol or drug abuse patient.[facility] HospitalIn the event this information is protected by the Federal Confidentiality of Alcohol and Drug Abuse Patient Records regulations: The Federal rules restrict any use of the information to criminally investigate or prosecute any alcohol or drug abuse patient.[facility] HospitalIn the event this information is protected by the Federal Confidentiality of Alcohol and Drug Abuse Patient Records regulations: The Federal rules restrict any use of the information to criminally investigate or prosecute any alcohol or drug abuse patient.[facility] HospitalIn the event this information is protected by the Federal Confidentiality of Alcohol and Drug Abuse Patient Records regulations: The Federal rules restrict any use of the information to criminally investigate or prosecute any alcohol or drug abuse patient.[facility] HospitalIn the event this information is protected by the Federal Confidentiality of Alcohol and Drug Abuse Patient Records regulations: The Federal rules restrict any use of the information to criminally investigate or prosecute any alcohol or drug abuse patient.[facility] HospitalIn the event this information is protected by the Federal Confidentiality of Alcohol and Drug Abuse Patient Records regulations: The Federal rules restrict any use of the information to criminally investigate or prosecute any alcohol or drug abuse patient.[facility] HospitalIn the event this information is protected by the Federal Confidentiality of Alcohol and Drug Abuse Patient Records regulations: The Federal rules restrict any use of the information to criminally investigate or prosecute any alcohol or drug abuse patient.[facility] HospitalIn the event this information is protected by the Federal Confidentiality of Alcohol and Drug Abuse Patient Records regulations: The Federal rules restrict any use of the information to criminally investigate or prosecute any alcohol or drug abuse patient.[facility] HospitalIn the event this information is protected by the Federal Confidentiality of Alcohol and Drug Abuse Patient Records regulations: The Federal rules restrict any use of the information to criminally investigate or prosecute any alcohol or drug abuse patient.[facility] HospitalIn the event this information is protected by the Federal Confidentiality of Alcohol and Drug Abuse Patient Records regulations: The Federal rules restrict any use of the information to criminally investigate or prosecute any alcohol or drug abuse patient.[facility] HospitalIn the event this information is protected by the Federal Confidentiality of Alcohol and Drug Abuse Patient Records regulations: The Federal rules restrict any use of the information to criminally investigate or prosecute any alcohol or drug abuse patient.[facility] HospitalIn the event this information is protected by the Federal Confidentiality of Alcohol and Drug Abuse Patient Records regulations: The Federal rules restrict any use of the information to criminally investigate or prosecute any alcohol or drug abuse patient.[facility] HospitalIn the event this information is protected by the Federal Confidentiality of Alcohol and Drug Abuse Patient Records regulations: The Federal rules restrict any use of the information to criminally investigate or prosecute any alcohol or drug abuse patient.[facility] HospitalIn the event this information is protected by the Federal Confidentiality of Alcohol and Drug Abuse Patient Records regulations: The Federal rules restrict any use of the information to criminally investigate or prosecute any alcohol or drug abuse patient.[facility] HospitalIn the event this information is protected by the Federal Confidentiality of Alcohol and Drug Abuse Patient Records regulations: The Federal rules restrict any use of the information to criminally investigate or prosecute any alcohol or drug abuse patient.[facility] Reason for Visit (unrecogniz ed section and content) Reason Comments PT Discharge Physical Therapy Specialty Diagnoses / Procedures Referred By Viraj t Referred To Contact [facility] Diagnoses Chronic midline low back pain without sciatica Procedures CONSULT TO PHYSICAL THERAPY PHYSICAL THERAPY EVALUATION HIGH COMPLEX 45 MINS Rishi Vasquez, DO [address] [place] [address] [facility] [place] [address] [place] [address] Referral ID Status Reason Start Date Expiration Date Visits Requested Visits Authorized [id number] Authorized Auto-Generat ed Referral 11/19/2023 11/18/2024 99 99 Reason Comments Physical Therapy Reason Comments Radiology US Specialty Diagnoses / Procedures Referred By Viraj t Referred To Contact [facility] Diagnoses Abnormal thyroid function test Procedures US THYROID/PARATHYROID US SOFT TISSUE HEAD & NECK REAL TIME IMGE DOCM Rishi Vasquez, DO [address] [place] [address] [place] [address] Referral ID Status Reason Start Date Expiration Date V isits Requested Visits Authorized [id number] Closed Auto-Generate d Referral 12/15/2022 01/14/2024 1 [...] Results Specialty Diagnoses / Procedures Referred By Viraj t Referred To Contact [facility] Diagnoses Abnormal mammogram Procedures US BREAST LTD RIGHT US BREAST UNI REAL TIME WITH IMAGE LIMITED Danyelle Tripp PA-C [address] [place] [address] [facility] [address] [place] [address] Referral ID Status Reason Start Date Expiration Date V isits Requested Visits Authorized [id number] Closed Auto-Generate d Referral 05/29/2023 06/27/2024 1 1 Reason Comments Radiology NM Specialty Diagnoses / Procedures Referred By Contac t Referred To Contact [facility] Diagnoses Abnormal thyroid function test Procedures NM THY UPTAKE AND SCAN THYROID UPTAKE W/BLOOD FLOW SNGLE/MULT JAMARI NATALIA Rishi Vasquez, DO [address] [place] [address] [facility] [address] [place] [address] Referral ID Status Reason Start Date Expiration Date V isits Requested Visits Authorized [id number] Closed Auto-Generate d Referral 12/15/2022 01/14/2024 1 1 Reason Onset Date Comments Refill Request 10/03/2023 Reason Comments Radiology US Specialty Diagnoses / Procedures Referred By Contac t Referred To Contact [facility] Diagnoses Multiple thyroid nodules Procedures US THYROID/PARATHYROID US SOFT TISSUE HEAD & NECK REAL TIME IMGE DOCRishi Morton, DO [address] [place] [address] [place] [address] Referral ID Status Reason Start Date Expiration Date V isits Requested Visits Authorized [id number] Closed Auto-Generate d Referral 12/05/2023 01/03/2025 1 1 Reason Comments PT Eval Reason Onset Date Comments Refill Request 01/28/2024 Reason Comments Patient Update Reason Comments Results Reason Onset Date Comments Refill Request 03/22/2024 Reason Comments Orders Reason Comments Patient Update Reason Comments Patient Question Fish oil - Remus 3 Reason Comments Patient Question Reason Onset Date Comments Refill Request 12/25/2024 Reason Comments HH Nursing POC Reason Comments [facility] HH PT POC Reason Comments ER F/U [facility] ED -03/20 Multiple falls, gangrene SADIE feet Reason Comments Halfway Plan of Care Reason Comments diabetic f/up Reason Comments Diabetes Reason Comments Medication Problem Care Teams (unrecognized sec tion and content) Automatic Operator Relationship Specialty Start Date End Date Rishi Vasquez, DO [address] [place] [address] PCP - General Family Practice 03/26/13 Automatic Operator Relationship Specialty Start Date End Date Rishi Vasquez, DO [address] [place] [address] PCP - General Family Practice 03/26/13 Automatic Operator Relationship Specialty Start Date End Date Rishi Vasquez, DO [address] [place] [address] PCP - General Family Practice 03/26/13 Automatic Operator Relationship Specialty Start Date End Date Rishi Vasquez, DO [address] [place] [address] PCP - General Family Practice 03/26/13 Automatic Operator Relationship Specialty Start Date End Date Rishi Vasquez, DO [address] [place] [address] PCP - General Family Practice 03/26/13 Automatic Operator Relationship Specialty Start Date End Date Rishi Vasquez, DO [address] [place] [address] PCP - General Family Practice 03/26/13 Automatic Operator Relationship Specialty Start Date End Date Rishi Vasquez, DO [address] [place] [address] PCP - General Family Practice 03/26/13 Automatic Operator Relationship Specialty Start Date End Date Rishi Vasquez, DO [address] [place] [address] PCP - General Family Practice 03/26/13 Automatic Operator Relationship Specialty Start Date End Date Rishi Vasquez, DO [address] [place] [address] PCP - General Family Practice 03/26/13 Automatic Operator Relationship Specialty Start Date End Date Rishi Vasquez, DO [address] [place] [address] PCP - General Family Practice 03/26/13 Automatic Operator Relationship Specialty Start Date End Date Rishi Vasquez, DO [address] [place] [address] PCP - General Family Practice 03/26/13 Automatic Operator Relationship Specialty Start Date End Date Rishi Vasquez, DO [address] [place] [address] PCP - General Family Medicine 03/26/13 Automatic Operator Relationship Specialty Start Date End Date Rishi Vasquez, DO [address] [place] [address] PCP - General Family Medicine 03/26/13 Automatic Operator Relationship Specialty Start Date End Date Rishi Vasquez, DO [address] [place] [address] PCP - General Family Medicine 03/26/13 Automatic Operator Relationship Specialty Start Date End Date Rishi Vasquez, DO [address] [place] [address] PCP - General Family Medicine 03/26/13 Automatic Operator Relationship Specialty Start Date End Date Rishi Vasquez, DO [address] [place] [address] PCP - General Family Medicine 03/26/13 Automatic Operator Relationship Specialty Start Date End Date Rishi Vasquez, DO [address] [place] [address] PCP - General Family Medicine 03/26/13 Team Status: Active Member Role Status Dates Dr. Rishi Vasquez DO Family Provider Active Dr. Rishi Vasquez DO Primary Care Provider Active Team Status: Active Member Role Status Dates Dr. Rishi Vasquez DO Primary Care Provider Active Dr. Russell Clement MD Attending Provider Active Dr. Brandon Membreno DPM Referring Provider Active Team Status: Inactive Member Role Status Dates Dr. Rishi Vasquez DO Primary Care Pr ovider, Attending Provider, Referring Provider Active Team Status: Inactive Member Role Status Dates Dr. Rishi Vasquez DO Primary Care Provider Active Dr. Brandon Membreno DPM Attending Provider Active Team Status: Inactive Member Role Status Dates Dr. Rishi Vasquez DO Primary Care Provider, Attend ing Provider Active Automatic Operator Relationship Specialty Start Date End Date Rishi Vasquez DO [address] [place] [address] PCP - General Family Medicine 03/26/13 Automatic Operator Relationship Specialty Start Date End Date Rishi Vasquez DO [address] [facility] [place] [address] PCP - General Family Medicine 03/26/13 Automatic Operator Relationship Specialty Start Date End Date Rishi Vasquez DO [address] [facility] [place] [address] PCP - General Family Medicine 03/26/13 Team Status: Inactive Member Role Status Dates Dr. Rishi Vasquez DO Primary Care Provider, Referr ing Provider Active Rick Bergeron SPECIAL POPULATION PARAPROFESSIONAL, SPECIAL POPULATION PARAPROFESSIONAL-C Attending Provider Active Automatic Operator Relationship Specialty Start Date End Date Rishi Vasquez DO [address] [place] [address] PCP - General Family Medicine 03/26/13 Automatic Operator Relationship Specialty Start Date End Date Rishi Vasquez DO [address] [place] [address] PCP - General Family Medicine 03/26/13 Automatic Operator Relationship Specialty Start Date End Date Rishi Vasquez DO [address] [place] [address] PCP - General Family Medicine 03/26/13 Automatic Operator Relationship Specialty Start Date End Date Rishi Vasquez DO [address] [place] [address] PCP - General Family Medicine 03/26/13 Team [...] Moscoso MD Attending Provider, Referring Provider Active Automatic Operator Relationship Specialty Start Date End Date Rishi Vasquez DO [address] [place] [address] PCP - General Family Medicine 03/26/13 Team Status: Inactive Member Role Status Dates Dr. Rishi Vasquez DO Primary Care Provider, Referr ing Provider Active Dr. Kwaku Moscoso MD Attending Provider Active Automatic Operator Relationship Specialty Start Date End Date Rishi Vasquez DO [address] [place] [address] PCP - General Family Medicine 03/26/13 Team Status: Inactive Member Role Status Dates Dr. Rishi Vasquez DO Primary Care Provider Active ELVA RobertM Attending Provider, Referring Provider Active Automatic Operator Relationship Specialty Start Date End Date Rishi Vasquez DO [address] [place] [address] PCP - General Family Medicine 03/26/13 Automatic Operator Relationship Specialty Start Date End Date Rishi Vasquez, [address] [place] [address] PCP - General Family Medicine 03/26/13 Automatic Operator Relationship Specialty Start Date End Date Rishi Vasquez DO [address] [place] [address] PCP - General Family Medicine 03/26/13 Automatic Operator Relationship Specialty Start Date End Date Rishi Vasquez, [address] [place] [address] PCP - General Family Medicine 03/26/13 Automatic Operator Relationship Specialty Start Date End Date Rishi Vasquez DO [address] [place] [address] PCP - General Family Medicine 03/26/13 Automatic Operator Relationship Specialty Start Date End Date Rishi Vasquez, [address] [place] [address] PCP - General Family Medicine 03/26/13 Automatic Operator Relationship Specialty Start Date End Date Rishi Vasquez, [address] [place] [address] PCP - General Family Medicine 03/26/13 Automatic Operator Relationship Specialty Start Date End Date Rishi Vasquez, [address] [place] [address] PCP - General Family Medicine 03/26/13 Automatic Operator Relationship Specialty Start Date End Date Rishi Vasquez, [address] [place] [address] PCP - General Family Medicine 03/26/13 Team Status: Inactive Member Role Status Dates Dr. Rishi Vasquez DO Primary Care Provider, Referr ing Provider Active Dr. Ciaran Jacobo MD Attending Provider Active Automatic Operator Relationship Specialty Start Date End Date Rishi Vasquez DO [address] [place] [address] PCP - General Family Medicine 03/26/13 Automatic Operator Relationship Specialty Start Date End Date Rishi Vasquez DO [address] [place] [address] PCP - General Family Medicine 03/26/13 Automatic Operator Relationship Specialty Start Date End Date Rishi Vasquez DO [address] [place] [address] PCP - General Family Medicine 03/26/13 Team Status: Active Member Role Status Dates Dr. Rishi Vasquez DO Primary Care Provider Active Dr. Elyssa Fierro MD Attending Provider Activ e Team Status: Inactive Member Role Status Dates Dr. Rishi Vasquez DO Primary Care Provider Active Dr. Ciaran Jacobo MD Attending Provider, Referring Provider Active Automatic Operator Relationship Specialty Start Date End Date Rishi Vasquez DO [address] [place] [address] PCP - General Family Medicine 03/26/13 Automatic Operator Relationship Specialty Start Date End Date Rishi Vasquez DO [address] [place] [address] PCP - General Family Medicine 03/26/13 Automatic Operator Relationship Specialty Start Date End Date Rishi Vasquez DO [address] [place] [address] PCP - General Family Medicine 03/26/13 Automatic Operator Relationship Specialty Start Date End Date Rishi Vasquez, [address] [place] [address] PCP - General Family Medicine 03/26/13 Automatic Operator Relationship Specialty Start Date End Date Rishi Vasquez, [address] [place] [address] PCP - General Family Medicine 03/26/13 Automatic Operator Relationship Specialty Start Date End Date Rishi Vasquez, [address] [place] [address] PCP - General Family Medicine 03/26/13 Automatic Operator Relationship Specialty Start Date End Date Rishi Vasquez, [address] [place] [address] PCP - General Family Medicine 03/26/13 Automatic Operator Relationship Specialty Start Date End Date Rishi Vasquez, [address] [place] [address] PCP - General Family Medicine 03/26/13 Automatic Operator Relationship Specialty Start Date End Date Rishi Vasquez, [address] [place] [address] PCP - General Family Medicine 03/26/13 Automatic Operator Relationship Specialty Start Date End Date Rishi Vasquez, [address] [place] [address] PCP - General Family Medicine 03/26/13 Automatic Operator Relationship Specialty Start Date End Date Rishi Vasquez, DO [address] [place] [address] PCP - General Family Medicine 03/26/13 Automatic Operator Relationship Specialty Start Date End Date Rishi Vasquez DO [address] [place] [address] PCP - General [facility] Medicine 03/26/13 Clary Andres, SPIDER ASSEMBLER.AUTOMOTIVE BUYER [address] [place] [address] [facility] 10/26/24 VioletaDillon, SPIDER ASSEMBLER.AUTOMOTIVE BUYER [address] [place] [address] [facility] 10/26/24 Automatic Operator Relationship Specialty Start Date End Date Rishi Vasquez DO [address] [place] [address] PCP - [facility] Medicine 03/26/13 Clary Andres, SPIDER ASSEMBLER.AUTOMOTIVE BUYER [address] [place] [address] [facility] 10/26/24 [facility] SPIDER ASSEMBLER.AUTOMOTIVE BUYER [address] [place] [address] [facility] 10/26/24 Team Status: Active Member Role Status [...] Status: Inactive Member Role Status Dates Dr. Rsihi Vasquez DO Primary Care Provider Active Start: February 26, 2025 End: February 26, 2025 Dr. Patel Irene DPM Attending Provider Active Start: February 26, 2025 End: February 26, 2025 Dr. Patel Irene DPM Referring Provider Active Start: February 26, 2025 [...] Referring Provider Active Start: March 07, 2025 Automatic Operator Relationship Specialty Start Date End Date Rishi Vasquez DO [address] [place] [address] PCP - General Family Medicine 03/26/13 [facility] Dillon, SPIDER ASSEMBLER.AUTOMOTIVE BUYER [address] [place] [address] Usability Specialist [facility] 10/26/24 Automatic Operator Relationship Specialty Start Date End Date Rishi Vasquez DO [address] [place] [address] PCP - General Family Medicine 03/26/13 [facility] Dillon, SPIDER ASSEMBLER.AUTOMOTIVE BUYER [address] [place] [address] Usability Specialist [facility] 10/26/24 Automatic Operator Relationship Specialty Start Date End Date Rishi Vasquez DO [address] [place] [address] PCP - General [facility] 03/26/13 [facility] Dillon, SPIDER ASSEMBLER.AUTOMOTIVE BUYER [address] [place] [address] Usability Specialist [facility] 10/26/24 Team Status: Inactive Member Role Status Dates Dr. Rishi Vasquez DO Primary Care Provider Active Start: February 17, 2025 End: March 18, 2025 Dr. Rishi Vasquez DO Attending Provider Active Start: February 17, 2025 End: March 18, 2025 Dr. Risih Vasquez DO Referring Provider Active Start: February [...] 07, 2025 End: March 11, 2025 Dr. Russell Clement MD [...] Active Star t: March 13, 2025 LILLIAM Gilmoer Other Provider Active Start: A pril 2024 Team Status: Active Member Role Status Dates Dr. Rishi Vasquez DO Primary Care Provider Active Start: March 19, 2025 Dr. Rishi Vasquez DO Attending Provider Active Start: March 19, 2025 Dr. Rishi Vaqsuez DO Referring Provider Active Start: March 19, 2025 Team Status: Inactive Member Role Status Dates Dr. Rishi Vasquez DO Primary Care Provider Active Start: March 19, 2025 End: March 19, 2025 Dr. Phong Soloomn MD Attending Provider Active Start: March 19, [...] April 15, 2025 End: April 15, 2025 Automatic Operator Relationship Specialty Start Date End Date Rishi Vasquez DO [address] [place] [address] PCP - General Family Medicine 03/26/13 Dillon Watts, TAY.AUTOMOTIVE BUYER [address] [place] [address] Usability Specialist [facility] 10/26/24 Automatic Operator Relationship Specialty Start Date End Date Rishi Vasquez DO [address] [place] [address] PCP - General Family Medicine 03/26/13 Dillon Watts, TAY.AUTOMOTIVE BUYER [address] [place] [address] [facility] 10/26/24 Team Status: Inactive Member Role Status [...] Referring Provider Active Start: April 21, 2025 Automatic Operator Relationship Specialty Start Date End Date Rishi Vasquez DO [address] [place] [address] PCP - General [facility] 03/26/13 [facility], SPIDER ASSEMBLER.AUTOMOTIVE BUYER [address] [facility], [place] [address] [facility] 10/26/24 Team Status: Active Member Role Status [...] April 27, 2025 End: April 27, 2025 Automatic Operator Relationship Specialty Start Date End Date Rishi Vasquez DO [address] [place] [address] PCP - General Family Medicine 03/26/13 [facility] SPIDER ASSEMBLER.AUTOMOTIVE BUYER [address] [place] [address] [facility] 10/26/24 Team Status: Active Member Role Status [...] 2025 End: May 07, 2025 Rick Bergeron SPECIAL POPULATION PARAPROFESSIONAL, SPECIAL POPULATION PARAPROFESSIONAL-C Attending Provider Active S tart: May 07, 2025 End: May 07, 2025 Automatic Operator Relationship Specialty Start Date End Date Rishi Vasquez DO [address] [place], [place] [address] PCP - General Family Medicine 03/26/13 [place] Watts, SPIDER ASSEMBLER.AUTOMOTIVE BUYER [address] [place], [place] [id number] [facility] 10/26/24 Fouzia Escobedo, SPIDER ASSEMBLER.AUTOMOTIVE BUYER [address] [place], [place] [id number] [facility] 05/04/25 Team Status: Inactive Member Role Status Dates Dr. Rishi Vasquez DO Primary Care Provider Active Start: May 08, 2025 End: May 08, 2025 Dr. Jarret Quiles MD Attending Provider Active Start: May 08, 2025 End: May 08, 2025 Dr. Jarret Quiles MD Referring Provider Active Start: May 08, 2025 End: May 08, 2025 Team Status: Active Member Role Status Dates Dr. Rishi Vasquez DO Primary Care Provider Active Start: May 11, 2025 Dr. Jarret Quiles MD Attending Provider Active Start: May 11, 2025 Dr. Jarret Quiles MD Referring Provider Active Start: May 11, 2025 Dr. Jarret Quiles MD Other Provider Active Star t: May 11, 2025 Team Status: Inactive Member Role Status Dates Dr. Rishi Vasquez DO Primary Care Provider Active Start: May 13, 2025 End: May 13, 2025 Dr. Rishi Vasquez DO Referring Provider Active Start: May 13, 2025 End: May 13, 2025 LILLIAM Gilmore Attending Provider Active Star t: May 13, 2025 End: May 13, 2025 INFORMATION SOURCE (unrecogn ized section and content) DATE CREATED AUTHOR 05/12/2025 [facility] DATE CREATED AUTHOR 'S ORGANIZ ATION 05/17/2025 [facility] FOR RECORDS PERTAINING TO PATIENTS WHO [...] BE BASED ON THE PRIMARY CLINICAL RECORDS. [employer] provides no warranty or guarantee of the accuracy or completeness of information in this document.
[2025-05-17 23:12] LABS: AST(SGOT) 83 U/L (<=31); Alanine Aminotransfer ALT/SGPT 36 U/L (<=34); Albumin, Serum 2.9 g/dL (3.4-4.8); Alkaline Phosphatase 54 U/L (35-104); Anion Gap 16 (5-15); BUN 78 mg/dL (4-19); BUN/Creat Ratio 39.9 RATIO (10-20); Calcium,Total 9.2 mg/dL (7.6-11.0); Carbon Dioxide 17.5 mmol/L (21.0-32.0); Chloride 97 mmol/L (98-108); Estimated Creatinine Clearance 26.13 ml/min (50-250); Globulin 3.4 g/dL (2.2-4.2); Glucose 253 mg/dL (70-99); Potassium 4.7 mmol/L (3.3-5.1)
[2025-05-17 23:16] LABS: CPK Total, Creatine Kinase 1177 U/L (24-195)
[2025-05-18] VITALS (30 sets, daily range): BP systolic 87–125; BP diastolic 39–60; PULSE 61–100; RESP 14–23; TEMP 36.6–39.5; O2SAT 92–100; BMI 24.7; BMI 24.5
--- NOTE | 2025-05-18 00:04 | ED.RN ---
RT called for EKG for patient due to patient looking like she is in afib on monitor with PVC
[2025-05-18 00:55] LABS: Mucous, Urine 0 SEEN /hpf (<or=2+); Red Blood Cells-Urine 0 SEEN /hpf (0-5)
[2025-05-18 01:01] LABS: Color, Urine Yellow (Yellow); Glucose, Dipstick Normal (Normal); Ketone-Dipstick 5 mg/dl (Negative); Leukocyte Esterase-Dipstick 500 /ul (Negative); Nitrite-Dipstick Negative (Negative); Occult Blood-Urine 250 /ul (Negative); Protein-Dipstick 100 mg/dl (Negative); Specific Gravity, Urine 1.020 (1.002-1.030); Urine Bilirubin Dipstick Negative (Negative)
[2025-05-18 01:29] LABS: Squamous Epithelial Cells - UA 0-5 SEEN /hpf (5-10)
--- NOTE | 2025-05-18 01:42 | EKG12_ITS ---
Test Reason : DYSRHYTHMIA Blood Pressure : */* mmHG Vent. Rate : 100 BPM Atrial Rate : 100 BPM P-R Int : 148 ms QRS Dur : 86 ms QT Int : 328 ms P-R-T Axes : 59 -24 68 degrees QTcB Int : 423 ms Normal sinus rhythm Nonspecific ST and T wave abnormality Abnormal ECG Confirmed by ANGELI LUNDBERG, LOVE ([id number]), pictures editor NOEMI FLANAGAN ([id number]) on 05/19/2025 1:36:05 PM Referred By: Jerri Castillo Confirmed By: LOVE SUH MD
--- NOTE | 2025-05-18 02:01 | PCM.HP.STD ---
HPI - General General Date of Admission: 05/18/25 Date of Service: 05/18/25 Chief Complaint: Debility, weakness. HPI Narrative The patient is a 75 y/o F w/ PMHx: CAD, PAD s/p peripheral angioplasty, Diabetes mellitus type II with Chronic neuropathy, Anxiety and Depression, HTN, HLD, Former tobacco use, Chronic normocytic anemia/Fe deficiency anemia, CKD stage III unclear subtype per GFR trending, chronic bilateral lower extremity diabetic ulcerations/wounds following with Dr. Irene podiatric medicine with recent new ulcer to the left medial ankle unfortunately where her surgical offloading shoe has been rubbing who presents to the [facility] ED on 05/18/2025 with generalized weakness, fatigue, difficulty ambulating secondary weakness with fall the day prior when she was coming to the house at 11:15 AM unfortunately found later in the evening past 9 PM by her family eventually helped into a chair where she remained although she was able to get out of the chair in the morning and use the toilet but unfortunately was unable to even get up after this prompting EMS call with noted onset of fever reporting that she had recently started doxycycline oral antibiotic for erythema to the left foot wounds per her podiatry office prompting evaluation in the ED. Workup in the ED included T97.9, heart rate 71, BP 119/52, respiratory rate 18, 96% room air with most recent vitals T1 100.4 oral, heart 100, BP 118/51, respiratory rate 23, 100% on room air, CBC with WC 7.1, hemoglobin 8.9, MCV 90.2, platelet 162 with lymphopenia, CMP with sodium 131, chloride 97, carbon oxide 17.5, anion gap 16, BUN/creatinine 78/1.96, GFR 27, glucose 253, lactic acid less than 1, AST/ALT 83/36, total creatinine kinase 1177, urinalysis with specific remedy 1.020, protein 100, ketones 5, occult blood 250, negative nitrite, leukocyte Estrace 500 with greater than 100 urine WBCs with 3+ urine bacteria, urine culture pending per ED, chest x-ray with no acute cardiopulmonary findings, plain film of the left foot with possible osteoarthritis, fourth metatarsal head, soft tissue swelling without obvious soft tissue gas with possibly cellulitis with postoperative changes. [facility] Medical History History of MRSA infection Pressure ulcer Ambulates with cane Shortness of breath on exertion History of edema History of echocardiogram Fall Atherosclerosis of [place] artery of both lower extremities with gangrene Other specified peripheral vascular diseases Chronic painful diabetic polyneuropathy MRSA (methicillin resistant staph aureus) culture positive Depression Diabetes Back pain Vertigo History of pain when walking Hypertension Arthritis Wears dentures Post-menopausal Low iron High cholesterol Easy bruising Neuropathy Dietary restriction Former smoker Cardiology follow-up encounter History of torn meniscus of left knee Carotid artery stenosis Essential hypertension Skin lesion Hammer toe of left foot Osteomyelitis Chronic kidney disease, stage 3 Atherosclerosis of coronary artery of [place] heart without angina pectoris Hyperlipidemia Peripheral vascular occlusive disease Hammer toe of second toe of left foot Hallux valgus (acquired), right foot Healed ulcer of left foot on examination Chronic ulcer of left foot with fat layer exposed Delayed wound healing Malnutrition Osteomyelitis of foot 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 Methicillin resistant Staphylococcus aureus infection Chronic osteomyelitis of left foot Non-healing ulcer of right foot DM2 (diabetes mellitus, type 2) Home Medications ?Medication ?Instructions ?Recorded ?Last Taken ?Type aspirin 81 mg tablet,delayed 81 mg PO QHS blood clots 01/13/14 04/14/25 History release multivitamin with folic acid 400 1 tab PO DAILY Supplement 01/13/14 11/14/16 History mcg tablet omega-3 fatty acids-fish oil 340 1 ea PO DAILY supplement 06/29/16 08/27/16 History mg-1,000 mg capsule ferrous sulfate 325 mg (65 mg 325 mg PO DAILY SUPPLEMENT 08/15/18 03/08/25 History iron) tablet ascorbic acid (vitamin C) 500 mg 1,000 mg PO LUNCH Supplement 11/25/20 03/11/25 11:50 History tablet calcium carbonate (Calcium 600) 600 mg PO DAILY supplement 12/29/21 Unknown History clopidogrel 75 mg tablet 75 mg PO DAILY Blood clots #90 tabs 10/23/24 04/15/25 Rx Lactobacillus acidophilus 600 mg PO QDAY gi 03/07/25 03/11/25 09:00 History (Acidophilus capsule) pregabalin 100 mg capsule 100 mg PO TID nerve pain 03/07/25 03/11/25 11:50 History simvastatin 20 mg tablet 20 mg PO QHS cholesterol #30 tabs 03/23/25 Unknown Rx nystatin 100,000 unit/gram topical 1 applic topical BID PRN rash 05/07/25 Unknown History powder ([facility]) acetaminophen 650 mg 650 mg PO Q12H PRN pain 05/08/25 Unknown History tablet,extended release amlodipine 5 mg tablet 5 mg PO DAILY HTN #90 tabs 05/12/25 Unknown Rx metoprolol succinate 25 mg 12.5 mg (1/2 x 25 mg) PO DAILY 05/12/25 Unknown Rx tablet,extended release 24 hr HEART RATE #45 tabs glimepiride 2 mg tablet 2 mg PO BID 05/18/25 Unknown History Allergy/AdvReac Type Severity Reaction Status Date / Time Sulfa (Sulfonamide Allergy Unknown Verified 05/17/25 21:44 Antibiotics) Family History Father CAD (coronary artery disease) Heart disease Hypertension CVA (cerebral vascular accident) Mother COPD (chronic obstructive pulmonary disease) Hypertension Heart disease Heart failure Surgical History History of cardiac catheterization History of colonoscopy History of foot surgery History of repair of left rotator cuff History of total left knee replacement (~2014) History of angioplasty of peripheral vessel (~2012) amputation left toe History of left heart catheterization (~01/20/14) Social History household members: none Smoking Status: Former smoker how long ago did patient quit smokin years ago alcohol intake: never substance use type: does not use caffeine: No ROS ROS Narrative Admission Review of Systems: CONSTITUTIONAL: No weight loss, + fever, chills, weakness or fatigue. HEENT: Eyes: No visual loss, blurred vision, double vision or yellow sclerae. Ears, Nose, Throat: No hearing loss, sneezing, congestion, runny nose or sore throat. SKIN: No rash or itching, lesions except significant + bilateral lower extremity diabetic wounds, left lower extremity primarily worse with notable lateral ankle and posterior heel wounds, heel wound with significant necrotic wound/discharge and foul odor. CARDIOVASCULAR: No chest pain, chest pressure or chest discomfort, palpitations, edema, orthopnea, syncopal events. RESPIRATORY: No shortness of breath, cough or sputum, wheezing, hemoptysis. GASTROINTESTINAL: + Decreased appetite. No nausea, vomiting or diarrhea, abdominal pain, melena, BRBPR. GENITOURINARY: No dysuria, frequency, urgency or retention. NEUROLOGICAL: No headache, dizziness, syncope, paralysis, ataxia, numbness or tingling in the extremities, focal weakness, change in bowel or bladder control, seizure. MUSCULOSKELETAL: + muscle, back pain, joint pain or stiffness. HEMATOLOGIC: + Chronic anemia, easy bleeding/bruising. LYMPHATICS: No enlarged nodes. No history of splenectomy. PSYCHIATRIC: + History of anxiety and depression. ENDOCRINOLOGIC: No reports of sweating, cold or heat intolerance. No polyuria or polydipsia. ALLERGIES: No history of asthma, hives, eczema or rhinitis. Vital Signs Vital Signs Vital Signs: 05/17/25 21:40 05/17/25 22:02 05/17/25 22:05 Temperature 97.9 F 100.4 F H Temperature Source Temporal Oral Pulse Rate 71 Respiratory Rate 18 Respiratory Effort Normal Respiratory Depth Normal Respiratory Pattern Normal Blood Pressure 118/52 L Blood Pressure Mean 74 Pulse Ox 96 Oxygen Delivery Method Room Air Room Air 05/18/25 00:00 05/18/25 01:56 Temperature 103.1 F H Temperature Source Oral Pulse Rate 100 85 Respiratory Rate 23 H 15 Respiratory Effort Respiratory Depth Respiratory Pattern Blood Pressure 118/51 L 124/50 H Blood Pressure Mean 73 74 Pulse Ox 100 93 Oxygen Delivery Method Room Air Room Air Weight Weight: 160 lb 11.472 oz Body Mass Index (BMI) 25.9 Physical Exam Narrative Physical Examination: General: Awake, alert, oriented x 3 and cooperative, laying in the bed, fatigued but denies any pain or acute complaint at this time. Skin: Normal color, normal turgor, no icterus, no cyanosis except for occasional stage ecchymoses, abrasion, significant bilateral lower extremity diabetic foot wounds primarily more acutely the left lower extremity with lateral ankle diabetic ulceration with no significant periwound erythema or drainage but he will significant necrotic appearing ulceration with discharge and foul odor and periwound erythema. HEENT: AT/NC, EOMI, PERRLA, dry MM, no carotid bruits or JVD noted. Lungs: Mildly diminished, greater bases, proper effort, no rales, ronchi or wheezing. Heart: Mildly tachycardic with regular rhythm; no gallop, rub audible. Abdomen: Soft, NTTP, ND, hyperactive BS, no appreciated HSM. Extremities: No cyanosis, no clubbing, see skin, left lower extremity with mid calf to pedal not markedly pitting but edematous in addition to diabetic wounds as noted. Patient is tremulous and notes this is chronic. Neurological: Patient awake, alert, oriented as noted, cognitive function intact; pupils equally reactive to light and accommodation, cranial nerves grossly normal, moving all 4 extremities, tremulous which is chronic, no focal deficits, strength severely globally increased Psychiatric: Affect appears fatigued, no acute evidence of depressive or anxiety feelings. Results Lab / Micro Data 05/17/25 21:53 05/17/25 21:53 Labs: Laboratory Results - last 24 hr 05/17/25 21:53: WBC 7.1, RBC 3.07 L, Hgb 8.9 L, Hct 27.7 L, MCV 90.2, MCH 29.0, MCHC 32.1, RDW Std Deviation 50.8 H, RDW Coeff of [place]org[place] 15.3 H, Plt Count 162, MPV 11.3, Immature Gran % (Auto) 0.600, Neut % (Auto) 80.8 H, Lymph % (Auto) 7.4 L, Yancey % (Auto) 10.6 H, Eos % (Auto) 0.0, Baso % (Auto) 0.6, Absolute Neuts (auto) 5.7, Absolute Lymphs (auto) 0.52 L, Nucleated RBC % 0, Sodium 131 L, Potassium 4.7, Chloride 97 L, Carbon Dioxide 17.5 L, Anion Gap 16 H, BUN 78 H, Creatinine 1.96 H, Estim Creat Clear Calc 26.13 L, Est GFR (MDRD) Non-Af 27 L, BUN/Creatinine Ratio 39.9 H, Glucose 253 H, Calcium 9.2, Total Bilirubin 0.45, AST 83 H, ALT 36 H, Alkaline Phosphatase 54, Total Creatine Kinase 1177 H, Total Protein 6.3, Albumin 2.9 L, Globulin 3.4, Albumin/Globulin Ratio 0.8 L 05/17/25 22:33: Lactic Acid < 1.0 05/18/25 00:50: Urine Color Yellow, Urine Clarity Cloudy, Urine pH 5.0, Ur Specific [place] 1.020, Urine Protein 100 H, Urine Glucose (UA) Normal, Urine Ketones 5 H, Urine Occult Blood 250 H, Urine Nitrite Negative, Urine Bilirubin Negative, Urine Urobilinogen Normal, Ur Leukocyte Esterase 500 H, Urine RBC 0 SEEN, Urine WBC >100 SEEN, Ur Squamous Epith Cells 0-5 SEEN, Urine Bacteria 3+, Urine Mucus 0 SEEN Imaging Radiology Impression Chest X-Ray 05/17/25 22:35 IMPRESSION: No acute chest findings. Reading Location: [facility] Foot X-Ray 05/17/25 22:35 IMPRESSION: Possible osteoarthritis, 4th metatarsal head. Soft tissue swelling, without obvious soft tissue gas. Possible cellulitis. [facility] Assessment & Plan Assessment/Plan (1) Acute UTI: PLAN: Plan The patient is a 75 y/o F w/ PMHx: CAD, PAD s/p peripheral angioplasty, Diabetes mellitus type II with Chronic neuropathy, Anxiety and Depression, HTN, HLD, Former tobacco use, Chronic normocytic anemia/Fe deficiency anemia, CKD stage III unclear subtype per GFR trending, chronic bilateral lower extremity diabetic ulcerations/wounds following with Dr. Irene podiatric medicine with recent new ulcer to the left medial ankle unfortunately where her surgical offloading shoe has been rubbing who presents to the [facility] ED on 05/18/2025 with generalized weakness, fatigue, difficulty ambulating secondary weakness with fall the day prior when she was coming to the house at 11:15 AM unfortunately found later in the evening past 9 PM by her family eventually helped into a chair where she remained although she was able to get out of the chair in the morning and use the toilet but unfortunately was unable to even get up after this prompting EMS call with noted onset of fever reporting that she had recently started doxycycline oral antibiotic for erythema to the left foot wounds per her podiatry office prompting evaluation in the ED. #1. LLE Infected Diabetic Ulceration with questionable 4th metatarsal head/LLE Cellulitis w/ Chronic BL LE Diabetic wounds/Ulcerations: Will admit to [facility] given stable vital sign, will maintain on IV vanc and zosyn, will obtain Wound Cx, will obtain Wound MRSA PCR, plan repeat CBC in AM, continue affected extremity elevation above heart when seated and in bed, monitor erythema outline with VS checks, will consult Wound RN, will consult Dr. Irene Podiatry, will request consultation also with Dr. Clement vascular surgery. #2. Acute Complicated Urinary Tract Infection: UA upon ED evaluation remarkable, pending UCx, continue aggressive IVFs, monitor I/Os, continue IV Zosyn/bank given #1 concurrently w/ transition as able pending sensitivities and speciation. Bld cx x 2 obtained in the ED. #3. Acute kidney injury on CKD stage III unclear subtype per previous GFR trending: Secondary to acute presentation as noted. Admission BUN/Cr 78/1.98, GFR 27, prior baseline creatinine noted to be most recently 0.9-1.0 but has vacillated in the past appears to have ranged 1.1-1.4 also,. Will hydrate, hold nephrotoxic medications and repeat chemistry in AM. If not improving will investigate further. #4. Acute rhabdomyolysis: Total creatinine kinase 1177, in addition to as noted acute kidney injury and mild transaminitis, will continue aggressive hydration and repeat CMP in AM, monitor urine output and adjust fluids as needed. #5. Mild acute transaminitis: Admission hepatic profile with T. bili 0.45, AST/ALT 83/36, will continue treatment as noted above, repeat CMP in AM. #6. Acute hyponatremia, hypochloremia, suspect hypovolemic etiology especially given #1: Admission sodium 131, chloride 97, will continue to hydrate and repeat CMP in AM. #7. PAD, CAD: Status post only peripheral angioplasty intervention per report, following with Dr. Clement with recent office visit noted 05/13/2025 with reportedly recent CTA demonstrating significant calcific femoral disease bilaterally with angiogram evaluation of the tibial vessels with consideration for bypass bilaterally with vein mapping unfortunately demonstrating insufficient vein use for bypass grafting with recommendation in conjunction with podiatry/vascular surgery noted to be bilateral femoral endarterectomies with bilateral femoral to tibial bypass with cadaver graft and bilateral sartorius flaps with planned staged procedures with noted plan for potential scheduled procedure 05/26/2025. Will continue aspirin, Plavix, statin, hypertensive regimen with adjustments as needed pending blood pressure trending. #8. Diabetes mellitus type II complicated by #1 with chronic diabetic wounds and chronic diabetic neuropathy: Hold oral home regimen, hemoglobin A1c requested, will maintain n.p.o. status pending vascular surgery and podiatry evaluation in case of decision for operative intervention undertaken, accu checks w/ ISS, continue home pregabalin regimen, nutrition consulted for education and teaching. #9. Hypertension: Continue home regimen including metoprolol, amlodipine with hold parameters as needed, PRN hydralazine. #10. Hyperlipidemia: Give #4 will temporarily hold statin therapy. #11. Chronic normocytic anemia/iron deficiency anemia: Admission hemoglobin 8.9, MCV 90.2, baseline hemoglobin has vacillated but appears primarily 9 range although more recently 05/08/2025 hemoglobin was 10.4, continue to closely trend CBC, if dropping further will investigate. Will continue iron supplementation. #12. Anxiety and depression: Noted history in the chart, not on regimen per current list, continue to monitor and follow-up outpatient as previously arranged. #13. Former tobacco use: Encourage continued tobacco cessation. #14. DVT prophylaxis: SCDs, hold chemoprophylaxis in case of OR, add if deferred. #15. CODE status: Patient SILVESTREOA she thinks is her sister but she is uncertain and she believes living will may be in place. Discussed CODE status at length including difference between FULL code, DNR-CCA and DNR-CC status. Following discussions about the differences in these status, requested Full Code status. Advanced Care Planning Face to Face Time: 16 minutes. Charges/Coding Visit Charges Inpatient E&M: 73738 Init Hosp L3 Procedures Hospitalists Procedures: 82857 Advncd Care Plan 30 Min
--- OUTSIDE RECORDS SUMMARY | 2025-05-18 02:18 | XMS RPT_ITS | CCD ---
Author Organization [facility] Care Team Providers Care Reverberatory Furnace Operator Name Role Phone Ray Ochoa Unavailable Unavailable Lila PENNINGTON, Aileen Peterson Unavailable Unavailable Ray Ochoa Unavailable Unavailable Kwaku Moscoso MD Unavailable Sukumar LUNDBERG, Marly Villavicencio Unavailable Lucía BARAJAS, Rebekah Villavicencio Unavailable Gaye Jasmine Unavailable Unavailable Shaina Serna LPN Unavailable Unavailable Dr. Rishi Vasquez Primary Care Provider Dr. Rishi Vasquez Referring Provider Dr. Kwaku Moscoso Attending Provider Dr. Kwaku Moscoso Other Provider Roof TOP DISTRIBUTION EXECUTIVE, YULY Tripathi Attending Provider Rishi Vasquez DO Primary Care Provider Dr. Rishi Vasquez Primary Care Provider Dr. Kwaku Moscoso Attending Provider Dr. Kwaku Moscoso Referring Provider Dr. Rishi Vasquez Referring Provider Rishi Vasquez DO Primary Care Provider Rubio TOP DISTRIBUTION EXECUTIVE, YULY Tripathi Attending Provider Dr. Rishi Vasquez Primary Care Provider Dr. Kwaku Moscoso Attending Provider Dr. Kwaku Moscoso Referring Provider Dr. Rishi Vasquez Referring Provider Roof TOP DISTRIBUTION EXECUTIVE, TOP DISTRIBUTION EXECUTIVE-C Rick Tripathi Attending Provider Dr. Rishi Vasquez Primary Care Provider Dr. Rishi Vasquez Referring Provider Dr. Russell Clement Attending Provider Rishi Vasquez DO Primary Care Provider Dr. Rishi Vasquez Primary Care Provider Dr. Brandon Membreno Referring Provider Dr. Rishi Vasquez Primary Care Provider Dr. Russell Clement Attending Provider [phone] Brandon Membreno Referring Provider Pedro, Dr. Blackwell Primary Care Provider Dr. Rishi Vasquez Referring Provider Roof TOP DISTRIBUTION EXECUTIVE, TOP DISTRIBUTION EXECUTIVE-Andrés Tripathi Attending Provider Dr. Kwaku Moscoso Attending Provider Dr. [...] Provider Dr. Elyssa Fierro Attending Provider Dmitry 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.FLAKE CUTTER OPERATOR, Clary Hargrove Unavailable Violeta 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.FLAKE CUTTER OPERATOR, Dillon Unavailable Vasquez DO, Dr. Blackwell Primary Care Provider [phone] Vasquez DO, Dr. Blackwell Attending Provider Vasquez DO, Dr. Blackwell Referring Provider Eudora DPM, Dr. Taylor Attending Provider Haseeb DPM, Dr. Taylor Referring Provider Irene DPM, Dr. Sweeney Attending Provider Urbano LUNDBERG, Dr. Wells Attending Provider Jamal DPM, Dr. Wagoner Attending Provider Jamal DPM, Dr. Wagoner Referring Provider Teto DPM, Dr. Sweeney Referring Provider Rosita DO, Dr. Orellana Emergency Provider [phone] Shonda LUNDBERG, Dr. Maddie Lawrence Admit Provider Shonda LUNDBERG, Dr. Maddie Lawrence Attending Provider Shonda LUNDBERG, Dr. Maddie Lawrence Referring Provider Pedro EUCEDA, Dr. Blackwell Primary Care Provider [phone] Pedro EUCEDA, Dr. Blackwell Attending Provider Pedro DO, Dr. Blackwell Referring Provider Shonda LUNDBERG, Dr. [...] LUNDBERG, Dr. Wells Referring Provider 1([facility])[phone] Pedro EUCEDA, Dr. Blackwell Primary Care Provider [phone] ePdro DO, Dr. Blackwell Attending Provider Pedro DO, Dr. Blackwell Referring Provider Haseeb DPM, Dr. Taylor Attending Provider Haseeb DPM, Dr. Taylor Referring Provider Pedro DO, Dr. Blackwell Primary Care Provider Vasquez DO, Dr. Blackwell Attending Provider 1([facility] )[phone] Pedro DO, Dr. Blackwell Referring Provider 1([facility] )[phone] Macarena VYAS, Abena Referring Provider 1([facility])[phone] Pedro EUCEDA, Dr. Blackwell Primary Care Provider Teto DPM, Dr. Sweeney Attending Provider Víctor LUNDBERG, Dr. Wagoner Attending Provider Víctor LUNDBERG, Dr. Wagoner Referring Provider Pedro EUCEDA, Dr. Blackwell Primary Care Provider Urbano LUNDBERG, Dr. Wells Attending Provider 1([facility])[phone] [facility] TOP DISTRIBUTION EXECUTIVE-Rick Bowen Attending Provider 1([facility])[phone] Chandra 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.FLAKE CUTTER OPERATOR, Fouziatequila Reis Unavailable RISHI VASQUEZ L Primary Care Unavailable RISHI VASQUEZ Attending Unavailable RISHI VASQUEZ Primary Care Unavailable RISHI VASQUEZ Referring Unavailable RISHI VASQUEZ Primary Care Unavailable CLARY ANDRES Referring Unavailabl e RISHI VASQUEZ Primary Care Unavailable FOUZIA ESCOBEDO Attending Unavailable RISHI VASQUEZ Primary Care Unavailable YUMIKO WHITEHEAD Attending Unavailable RISHI VASQUEZ L Primary Care Unavailable RISHI VASQUEZ L Attending Unavailable RISHI VASQUEZ L Primary Care Unavailable VASQUEZ, RISHI L Referring Unavailable RISHI VASQUEZ Primary Care Unavailable Kb LUNDBERG, Dr. Wheat [...] Irene DPM, Dr. Sweeney Referring Provider Rosita EUCEDA, Dr. Orellana Emergency Provider Shonda LUNDBERG, Dr. [...] Provider Urbano LUNDBERG, Dr. Wells Referring Provider [phone] Abena Baxter Referring Provider [phone] Víctor LUNDBERG, Dr. Wagoner Attending Provider Víctor LUNDBERG, Dr. Wagoner Referring Provider [facility] Rick EMERY Attending Provider Kb LUNDBERG, Dr. Wheat Attending Provider Kb LUNDBERG, Dr. Wheat Referring Provider Kb LUNDBERG, Dr. Wheat Other Provider Vasquez, Rishi Primary Care Unavailable Fiore, Abena Referring Unavailable Fiore, Abena Attending Unavailable Vasquez, Rishi Referring Unavailable Vasquez, Rishi Attending Unavailable Vasquez, Rishi Primary Care Unavailable Irene, Patel Attending Unavailable Vasquez, Rishi Primary Care Unavailable Vasquez, Rishi Primary Care Unavailable Kelly, Kwaku Consulting Unavailable Servando, Phong Chi Attending Unavailable Servando, Phong Chi Referring Unavailable Servando, Phong Chi Admitting Unavailable Irene, Patel Consulting Unavailable Fiore, Abena Consulting Unavailable Vasquez, Rishi Primary Care Unavailable Brandon Membreno Referring Unavailable Brandon Membreno Attending Unavailable Vasquez, Rishi Primary Care Unavailable Frederick, Russell Attending Unavailable Frederick, Russell Referring Unavailable Urbano, Russell Admitting Unavailable Vasquez, Rishi Primary Care Unavailable White, Maddie L Admitting Unavailable Irene, Patel Consulting Unavailable Broderick Dempsey Attending Unavailable White, Maddie L Referring Unavailable Tanphaichitr, Natthavat Consulting Unavaila ble Frederick, Russell Consulting Unavailable White, Maddie L Consulting Unavailable Kelly, Kwaku Consulting Unavailable Vasquez, Rishi Primary Care Unavailable Urbano, Russell Attending Unavailable Fiore, Abena Referring Unavailable DrewysonDonCurtis Referring Unavailable Vasquez, Rishi Primary Care Unavailable Curtis Franco Attending Unavailable Ciaran Berry Referring Unavailable Ciaran Berry Attending Unavailable Vasquez, Rishi Primary Care Unavailable Vasquez, Rishi Primary Care Unavailable Servando, Phong Chi Referring Unavailable Servando, Phong Chi Attending Unavailable Vasquez, Rishi Primary Care Unavailable Jarret Quiles Attending Unavailable Jarret Quiles Referring Unavailable PraysonCurtis Referring Unavailable Vasquez, Rishi Primary Care Unavailable PraysonVivians Attending Unavailable Vasquez, Rishi Primary Care Unavailable Vasquez, Rishi Attending Unavailable Vasquez, Rishi Referring Unavailable Vasquez, Rishi Primary Care Unavailable Vasquez, Rishi Referring Unavailable Vasquez, Rishi Attending Unavailable Vasquez, Rishi Primary Care Unavailable Teto Patel Attending Unavailable Irene, Patel Referring Unavailable Vasquez, Rishi Primary Care Unavailable Ungur, Remus Attending Unavailable Ungur, Remus Referring Unavailable Vasquez, Rishi Primary Care Unavailable Vasquez, Rishi Referring Unavailable Vasquez, Rishi Attending Unavailable Vasquez, Rishi Primary Care Unavailable Vasquez, Rishi Attending Unavailable Vasquez, Rishi Referring Unavailable Vasquez, Rishi Primary Care Unavailable Vasquez, Rishi Attending Unavailable Vasquez, Rishi Referring Unavailable Vasquez, Rishi Primary Care Unavailable Frederick, Russell Attending Unavailable Frederick, Russell Admitting Unavailable Vasquez, Rishi Primary Care Unavailable White, Maddie L Admitting Unavailable White, Maddie L Consulting Unavailable White, Maddie L Attending Unavailable White, Maddie L Referring Unavailable Vasquez, Rishi Primary Care Unavailable Ciaran Renee Referring Unavailable Ciaran Renee Attending Unavailable Irene, Patel Consulting Unavailable Ke, Broderick Attending Unavailable [...] Consulting Unavailable Vasquez, Rishi Primary Care Unavailable Frederick, Russell Attending Unavailable Frederick, Russell Referring Unavailable Frederick, Russell Consulting Unavailable Fiore, Abena Attending Unavailable Brandon Membreno Referring Unavailable Urbano, Russell Attending Unavailable Vasquez, Rishi Primary Care Unavailable Vasquez, Rishi Primary Care Unavailable Macarena, Abena Attending Unavailable Vasquez, Rishi Referring Unavailable Vasquez, Rishi Primary Care Unavailable Vasquez, Rishi Referring Unavailable Roof Rick BARAJAS Attending Unavailable Vasquez, Rishi Primary Care Unavailable Fiore, Abena Attending Unavailable Vasquez, Rishi Referring Unavailable Vasquez, Rishi Primary Care Unavailable Clover Quilesd Attending Unavailable Kb, Jarret Referring Unavailable Jarret Quiles Consulting Unavailable Vasquez, Rishi Primary Care Unavailable Brandon Membreno Referring Unavailable Brandon Membreno Attending Unavailable Vasquez, Rishi Referring Unavailable Vasquze, Rishi Attending Unavailable Vasquez, Rishi Primary Care [...] Care Unavailable Vasquez, Rishi Attending Unavailable Vasquez, Risih Referring Unavailable Vasquez, Rishi Primary Care Unavailable Russell Clement Attending Unavailable Russell Clement Referring Unavailable Allergies Allergy Classification Reported Allergen(s) Allergy Type Date of Onset Reaction(s) Facility Sulfonamides (antibiotic) (1 source) Sulfonamides (Antibiotic) Drug Allergy 3 Unknown [facility] (10 sources) Sulfonamides (Antibiotic) drug allergy 4 [facility] Work Phone: (20 sources) Sulfonamides (Antibiotic); Translations: [SULFA (SULFONAMIDE ANTIBIOTICS)] Drug Allergy 3 Unknown [facility] (20 sources) Sulfonamides (Antibiotic) Allergy to substance 2 Unknown [facility] Comment on above: doesn't remember/ al florina noted as a child (1 source) Sulfonamides (Antibiotic) Drug allergy (disorder) 5 [facility] Repository Medications Current Medications Medication Drug Class(es) Dates Sig (Normalized) Sig (Original) 8 hr acetaminophen 650 mg extended release oral tablet (20 sources) Start: 05-08-2025 Start: 03-17-2025 take 2 tablets by [facility] every six hours as needed for pain [...] TYLENOL CAPS a s needed ACETAMINOPHEN CAPS [id number] Kwaku Moscoso MD Start: 09-22-2016 End: 11-22-2016 TYLENOL CAPS as needed 09/22 ACETAMINOPHEN CAPS [id number] Espinoza Hancockr MA Start: 09-22-2016 TYLENOL CAPS a s needed ACETAMINOPHEN CAPS [id number] Espinoza S Grant MA Start: 09-22-2016 End: 11-22-2016 TYLENOL CAPS as needed 09/22 ACETAMINOPHEN CAPS [id number] Espinoza S Grant MA Start: 09-22-2016 TYLENOL CAPS a s needed ACETAMINOPHEN CAPS [id number] Espinoza S Grant MA take 2 tablets by mo [facility] every six hours as needed acetaminophen (TYLENOL) [...] 06-04-2024 Start: 01-05-2014 take 1 tablet by paolo th once daily NORVASC 10 MG TABS One tablet by mouth daily AMLODIPINE BESYLATE [id number] Ira Lopez PA-C Comment on above: Take [...] TABS One tablet by mouth daily ASPIRIN [id number] Carole Garber RN Start: 06-30-2013 take 1 [...] on above: Take 1 capsule by mo [facility] twice daily for 7 days. Cranberry Extract (20 sources) Non-Standardized Food Allergenic Extract, Non-Standardized Plant Allergenic Extract Start: Start: 08-08-2022 take 1 capsule by mo [...] CRANBERRY CAPS Cranberry Extract daily CRANBERRY CAPS [id number] Brandon Ch MD Start: 11-25-2014 Cranberry Extr [...] tablet by mouth twice daily FERROUS SULFATE [id number] Kwaku Moscoso MD Comment on above: Take [...] th once daily TOPROL XL 50 MG [id number]-QFP (ER) One tablet by mouth daily METOPROLOL SUCCINATE [id number] Brandon hC MD Start: 01-05-2014 take 1 tablet by paolo th once daily METOPROLOL SUCCINATE ER 25 MG [id number] One tablet by mouth daily METOPROLOL SUCCINATE [id number] Carole Garber RN Comment on above: Take 1 tablet by paolo once daily. Mqaddemg-Ypwt-Gad-F olic Acid 18-0.4 mg tab (20 sources) Start: 03-02-2014 take 1 tablet by mouth once daily Zhoysrho-Adbg-Dfo- Folic Acid 18-0.4 mg tab Take 1 tablet by mouth once daily. 03/02/2014 Active Start: 03-02-2014 take 1 tablet by paolo once daily Gdxeslfy-Zvgc-Skf-Folic Acid 18-0.4 mg t ab Take 1 tablet by mouth once daily. 0 03/02/2014 Active Comment on above: Take 1 tablet by paolo once daily. Multivitamin With Folic Acid (20 sources) Start: 01-13-2014 take 1 tablet by mouth once daily Multivitamin With Folic Acid Active 1 TABLET PO DAILY January 13, 2014 10:51am Start: 01-13-2014 take 1 tablet by paolo once daily Multivitamin With Folic Acid Active 1 TABLET PO DAILY January 13, 2014 12:00am Start: 01-13-2014 take 1 tablet by paolo once daily Multivitamin With Folic Acid Active [...] on above: Take 1 capsule by mo [facility] twice daily with meals for 7 days. [...] 1 capsule by mo uth once daily. Clayton-3 Fatty Acids-Fish Oil (20 sources) Start: 06-29-2016 Clayton-3 Fatty Acids-Fish Oil Active 1 EACH PO DAILY June 29, 2016 1:08pm Start: 06-29-2016 [place]-3 Fatty Acids-Fish Oil Active 1 EACH PO DAILY June 28, 2016 11:00pm Start: 06-29-2016 [place]-3 Fatty Acids-Fish Oil Active 1 EACH PO DAILY June 29, 2016 12:00am [place]-3 Fatty Acids-Fish Oil 1 EACH capsule (11 sources) Start: 06-29-2016 [place]-3 Fatty Acids-Fish Oil 1 EACH capsule Active [...] One tablet by mouth twice daily CALCIUM [id number] Kwaku Moscoso MD calcium ascorbate 500 mg [...] MG SOLR q 12 hrs CEFTAROLINE FOSAMIL [id number] Shaina Serna LPN ceftaroline fosamil 600 mg injection (20 sources) Start: 11-15-2016 End: 07-23-2018 End: 01-04-2017 TEFLARO 400 MG SOLR q 12 hrs CEFTAROLINE FOSAMIL [id number] Espinoza Burns MA cholecalciferol 0.05 mg oral capsule (20 sources) Vitamin D Start: 10-05-2020 End: 03-07-2025 Start: 05-20-2020 End: 03-07-2025 take 1 capsule by mouth once daily Cholecalciferol (Vitamin D3) 50 mcg (2,000 unit) capsule Discontinued 2000 U PO DAILY August 08, 2022 9:41am March 07, 2025 4:02pm take 1 capsule by mo [facility] once daily Cholecalciferol, Vitamin D3, 25 mcg [...] One tablet by mouth daily CLOPIDOGREL BISULFATE [id number] Brandon Ch MD Comment on above: Take 75 mg by mouth once daily. clotrimazole 10 mg oral lozenge (20 sources) Azole Antifungal Start: 09-20-2016 End: 11-22-2016 CLOTRIMAZOLE 10 MG LOZG 1 tab 5 x a day CLOTRIMAZOLE [id number] Espinoza Burns MA DOCUSATE SODIUM CAPS (10 sources) Histamine-1 Receptor Antagonist, Nonsteroidal Anti-inflammatory Drug Start: 09-22-2016 STOOL SOFTENER CAPS twice daily DOCUSATE SODIUM CAPS [id number] Espinoza Burns MA Start: 09-22-2016 End: 11-22-2016 STOOL SOFTENER CAPS twice da nhi DOCUSATE SODIUM CAPS [id number] Espinzoa Burns ALFONSO Start: 09-22-2016 STOOL SOFTENER CAPS twice daily DOCUSATE SODIUM CAPS [id number] Espinoza Burns ALFONSO Start: 09-22-2016 End: 11-22-2016 STOOL SOFTENER CAPS twice da nhi DOCUSATE SODIUM CAPS [id number] Espinoza Burns MA docusate sodium 100 mg [...] SOFTENER CAPS twice daily DOCUSATE SODIUM CAPS [id number] Espinoza Burns ALFONSO Start: 09-22-2016 STOOL SOFTENER CAPS twice daily DOCUSATE SODIUM CAPS [id number] Espinoza Burns MA doxycycline monohydrate 100 mg oral capsule (20 sources) Tetracycline-class Drug Start: 03-11-2025 End: 05-07-2025 Start: 01-02-2025 End: 03-11-2025 Start: 02-14-2017 End: 06-11-2017 take 1 tablet by mouth twice daily DOXYCYCLINE HYCLATE 100 MG CAPS One tablet by mouth twice daily DOXYCYCLINE HYCLATE [id number] Marly Patino MD estradiol 0.1 mg/ml vaginal [...] MG /GM CREA Take as directed ESTRADIOL [id number] Brandon Ch MD Start: 05-25-2015 ESTRACE 0.1 MG /GM CREA Take as directed ESTRADIOL [id number] Brandon Ch MD Comment on above: Use 1 g vaginally tw ice a week. Use 1 g vaginally tw o times a week. fish oil (5 sources) Start: 09-20-2016 take 1 tablet by mouth once daily OMEGA-3 FISH OIL 300 MG CAPS One tablet by mouth daily OMEGA-3 FATTY ACIDS [id number] Meka Jones Start: 09-20-2016 take 1 tablet by paolo th once daily OMEGA-3 FISH OIL 300 MG CAPS One tablet by mouth daily OMEGA-3 FATTY ACIDS [id number] Meka Jones gabapentin 600 mg oral table [...] Start: 01-05-2014 take 2 tablets by mo ut once daily HYDROCHLOROTHIAZIDE 12.5 MG TABS Two tablets by mouth daily HYDROCHLOROTHIAZIDE [id number] Carole Garber RN Comment on above: Take 1 tablet by paolo th once daily. 3 ml insulin lispro 100 unt/ml pen injector (8 sources) Insulin Analog Start: 5 End: 5 LACTOBACILLUS CAPS (2 sources) Start: 7 take 1 tablet by mouth once daily ACIDOPHILUS CAPS 600 mg. One tablet by mouth daily LACTOBACILLUS CAPS [id number] Kwaku Moscoso MD LACTOBACILLUS CAPS (20 sources) Start: 6 ACIDOPHILUS/PECTIN CAPS 1 tab every night LACTOBACILLUS CAPS [id number] Meka Jones Start: 09-20-2016 End: 11-22-2016 ACIDOPHILUS/PECTIN CAPS 1 ta b every night LACTOBACILLUS CAPS [id number] Espinoza Burns MA Start: 09-20-2016 End: 11-22-2016 ACIDOPHILUS/PECTIN CAPS 1 ta b every night LACTOBACILLUS CAPS [id number] Espinoza Burns MA Start: 09-20-2016 ACIDOPHILUS/PE CTIN CAPS 1 tab every night LACTOBACILLUS CAPS [id number] Meka Stallings Clementzrusty Start: 07-11-2016 End: 08-31-2016 Start: 07-11-2016 End: 08-31-2016 take 1 tablet by mouth twice daily Acidophilus-Pectin, [place] 1 EACH tablet Discontinued 1 NMA PO TWICE A DAY July 11, 2016 12:00am August 31, 2016 5:49pm Start: 07-11-2016 End: 08-31-2016 Acidophilus-Pectin, [place] D iscontinued 1 EACH PO TWICE A [...] Start: 01-05-2014 take 1 tablet by paolo twice daily METFORMIN HCL 500 MG TABS One tablet by mouth twice daily METFORMIN HCL [id number] Kwaku Moscoso MD Start: 01-05-2014 End: 07-29-2018 Comment on above: Take 1 tablet by paolo twice daily with meals. Take 1 tablet by paolo daily with breakfast. metroNIDAZOLE 500 mg oral tablet (20 sources) Nitroimidazole Antimicrobial Start: 03-11-20 25 End: 05-07-20 MULTIPLE VITAMIN (10 sources) Start: 01-05-20 14 take 1 tablet by mouth once daily MULTIVITAMINS TABS One tablet by mouth daily MULTIPLE VITAMIN Carole Garber RN Start: 01-05-2014 take 1 tablet by paolo once daily MULTIVITAMINS TABS One tablet by mouth daily MULTIPLE VITAMIN Carole Garber RN Bwluwebu-Lhdr-Qsn-Folic Acid (CENTRUM COMPLETE) 18-0.4 mg tab (12 sources) Start: 03-02-2014 take 1 tablet by mouth once daily Dzstxzzj-Djrb-Ecw-Folic Acid (CENTRUM COMPLETE) 18-0.4 mg tab Take 1 tablet by mouth once daily. 0 03/02/2014 Active Comment on above: Take 1 tablet by [facility] once daily. naproxen sodium 220 mg oral tablet (20 sources) Nonsteroidal Anti-inflammat ory Drug Start: 01-05-2014 End: 12-29-2014 ALEVE 220 MG TABS as needed NAPROXEN SODIUM [id number] Carole Garber RN nitroglycerin 0.4 mg sublingual tablet (10 sources) Nitrate Vasodilator Start: 01-05-2014 NITROSTAT 0.4 MG SUBL 1 tablet under tongue every 5 min up to 3 X NITROGLYCERIN [id number] Carole Garber RN OMEGA-3 FATTY ACIDS (5 sources) Start: 09-20-2016 take 1 tablet by mouth once daily OMEGA-3 FISH OIL 300 MG CAPS One tablet by mouth daily OMEGA-3 FATTY ACIDS [id number] Meka Jones polysaccharide iron complex 150 mg oral capsule (12 sources) Start: 09-20-2016 End: 08-30-2017 take 1 tablet by mouth once daily FERREX 150 150 MG CAPS One tablet by mouth daily POLYSACCHARIDE IRON COMPLEX [id number] Kwaku Moscoso MD Start: 09-20-2016 take 1 tablet by paolo once daily FERREX 150 150 MG CAPS One tablet by mouth daily POLYSACCHARIDE IRON COMPLEX [id number] Meka Jones pravastatin sodium 20 mg oral tablet (20 sources) HMG-CoA Reductase Inhibitor Start: 01-05-2014 End: 01-22-2015 take 1 tablet by mouth once daily PRAVASTATIN SODIUM 20 MG TABS One tablet by mouth daily PRAVASTATIN SODIUM [id number] Carole Garber RN senokot-s (2 sources) Start: 08-30-2017 take 1 tablet by mouth twice daily STOOL SOFTENER 100 MG TABS One tablet by mouth twice daily DOCUSATE SODIUM [id number] Kwaku Moscoso MD vancomycin 50 mg/ml injectable solution (20 sources) Glycopeptide Antibacterial Start: 09-20-2016 End: 11-22-2016 take 1000 mg intravenous route every twenty-four hours VANCOMYCIN HCL 1000 MG SOLR IV Q24 hours for 38 days VANCOMYCIN HCL [id number] Meka Jones Problems Active Problems Problem Classification [...] unspecified whether stage 3a or 3b CKD ([facility])] Onset: 7 Chronic ulcer of skin (20 [...] disease (20 sources) Atherosclerotic heart disease of [place] coronary artery without angina pectoris; Translations: [Coronary [...] artery of lower limb; Translations: [Atherosclerosis of [place] arteries of extremities with gangrene, bilateral legs] [...] Onset: 3 12-29-2014 Chronic Comment on above: RN 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-Left SFA [...] 08-30-2017 Chronic Unclassified (7 sources) appt [facility] Calderon Podlogcarlo,JENN Unclassified (1 source) Chronic midline low back [...] Test Name Value Interpretation Reference Range Facility CBC W/Diff, Automatedon - Absolute Lymph 0.52 X10 3/uL Low 0.83-4.51 [facility] Comment on above: Performed By: #### L 100.0100, L503.6005, L500.4050 ####[facility] [address] [place], [address] Absolute Neut 5.7 X10 3/uL Normal 2.0-7.7 [facility] Comment on above: Performed By: #### L 100.0100, L503.6005, L500.4050 ####[facility] [address] [place], [address] Basophils/100 WBC (Bld) 0.6 % Normal 0-1 [facility] Comment on above: Performed By: #### L 100.0100, L503.6005, L500.4050 ####[facility] [address] [place], [address] Eosinophils/100 WBC (Bld) 0.0 % Normal 0-5 [facility] Comment on above: Performed By: #### L 100.0100, L503.6005, L500.4050 ####[facility] [address] [place], [address] Erythrocyte distribution width (RBC) [Ratio] 15.3 % High 11.6-14.6 [facility] Comment on above: Performed By: #### L 100.0100, L503.6005, L500.4050 ####[facility] [address] [place], [address] Hematocrit (Bld) [Volume fraction] 27.7 % Low 37-47 [facility] Comment on above: Performed By: #### L 100.0100, L503.6005, L500.4050 ####[facility] [address] [place], [address] Hemoglobin (Bld) [Mass/Vol] 8.9 g/dL Low 12.0-15.0 [facility] Comment on above: Performed By: #### L 100.0100, L503.6005, L500.4050 ####[facility] [address] [place], [address] IG% 0.600 Normal 0.0-0.9 [facility] Comment on above: Result Comment: IG% - Immature Granulocytes (promyelocytes, myelocytes andmetamyelocytes) > 1% indicates that a LEFT SHIFT is Present. Performed By: #### L 100.0100, L503.6005, L500.4050 ####[facility] [address] [place], [address] Lymphocytes/100 WBC (Bld) 7.4 % Low 19-41 [facility] Comment on above: Performed By: #### L 100.0100, L503.6005, L500.4050 ####[facility] [address] [place], [address] MCH (RBC) [Entitic mass] 29.0 pg Normal 27.0-32.0 [facility] Comment on above: Performed By: #### L 100.0100, L503.6005, L500.4050 ####[facility] [address] [place], [address] MCHC (RBC) [Mass/Vol] 32.1 g/dL Normal 32-36 [facility] Comment on above: Performed By: #### L 100.0100, L503.6005, L500.4050 ####[facility] [address] [place], [address] MCV (RBC) [Entitic vol] 90.2 fL Normal 81-99 [facility] Comment on above: Performed By: #### L 100.0100, L503.6005, L500.4050 ####[facility] [address] [place], [address] Monocytes/100 WBC (Bld) 10.6 % High 0-10 [facility] Comment on above: Performed By: #### L 100.0100, L503.6005, L500.4050 ####[facility] [address] [place], [address] Neutrophils/100 WBC (Bld) 80.8 % High 47-70 [facility] Comment on above: Performed By: #### L 100.0100, L503.6005, L500.4050 ####[facility] [address] [place], [address] Nucleated RBC (Bld) [#/Vol] 0 10*3/uL Normal 0-5 [facility] Comment on above: Performed By: #### L 100.0100, L503.6005, L500.4050 ####[facility] [address] [place], [address] Platelet mean volume (Bld) [Entitic vol] 11.3 fL Normal 6.2-12.0 [facility] Comment on above: Performed By: #### L 100.0100, L503.6005, L500.4050 ####[facility] [address] [place], [address] Platelets (Bld) [#/Vol] 162 10*3/uL Normal 150-450 [facility] Comment on above: Performed By: #### L 100.0100, L503.6005, L500.4050 ####[facility] [address] [place], [address] RBC (Bld) [#/Vol] 3.07 10*6/uL Low 4.2-5.4 [facility] Comment on above: Performed By: #### L 100.0100, L503.6005, L500.4050 ####[facility] [address] [place], [address] RDW SD 50.8 fl High 35.1-43.9 [facility] Comment on above: Performed By: #### L 100.0100, L503.6005, L500.4050 ####[facility] [address] [place], [address] WBC (Bld) [#/Vol] 7.1 10*3/uL Normal 4.4-11.0 [facility] Comment on above: Performed By: #### L 100.0100, L503.6005, L500.4050 ####[facility] [address] [place], [address] CPK Total, Creatine Kinaseon 05-17-2025 CPK TOTAL 1177 U/L High 24-195 [facility] Comment on above: Performed By: #### L 501.3620 ####[facility] [address] [place], [address] Comprehensive Metabolic Prof ilon 05-17-2025 Albumin [Mass/Vol] 2.9 g/dL Low 3.4-4.8 [facility] Comment on above: Performed By: #### L 100.0100, L503.6005, L500.4050 ####[facility] [address] [place], [address] Albumin/Globulin [Mass ratio] 0.8 {ratio} Low 0.9-2.4 [facility] Comment on above: Performed By: #### L 100.0100, L503.6005, L500.4050 ####[facility] [address] [place], [address] ALK PHOS 54 U/L Normal 35-104 [facility] Comment on above: Performed By: #### L 100.0100, L503.6005, L500.4050 ####[facility] [address] [place], [address] ALT [Catalytic activity/Vol] 36 U/L High <=34 [facility] Comment on above: Performed By: #### L 100.0100, L503.6005, L500.4050 ####[facility] [address] [place], [address] AST [Catalytic activity/Vol] 83 U/L High <=31 [facility] Comment on above: Result Comment: Hemo lysis present, Results??could be affected.?? Performed By: #### L 100.0100, L503.6005, L500.4050 ####[facility] [address] [place], [address] Bilirubin [Mass/Vol] 0.45 mg/dL Normal 0.00-1.30 [facility] Comment on above: Performed By: #### L 100.0100, L503.6005, L500.4050 ####[facility] [address] [place], [address] BUN/CRE 39.9 RATIO High 10-20 [facility] Comment on above: Performed By: #### L 100.0100, L503.6005, L500.4050 ####[facility] [address] [place], [address] Calcium [Mass/Vol] 9.2 mg/dL Normal 7.6-11.0 [facility] Comment on above: Performed By: #### L 100.0100, L503.6005, L500.4050 ####[facility] [address] [place], [address] Chloride [Moles/Vol] 97 mmol/L Low 98-108 [facility] Comment on above: Performed By: #### L 100.0100, L503.6005, L500.4050 ####[facility] [address] [place], [address] CO2 [Moles/Vol] 17.5 mmol/L Low 21.0-32.0 [facility] Comment on above: Performed By: #### L 100.0100, L503.6005, L500.4050 ####[facility] [address] [place], [address] Creatinine [Mass/Vol] 1.96 mg/dL High 0.70-1.20 [facility] Comment on above: Performed By: #### L 100.0100, L503.6005, L500.4050 ####[facility] [address] [place], [address] ECRCL 26.13 ml/min Low 50-250 [facility] Comment on above: Performed By: #### L 100.0100, L503.6005, L500.4050 ####[facility] [address] [place], [address] GAP 16 High 5-15 [facility] Comment on above: Performed By: #### L 100.0100, L503.6005, L500.4050 ####[facility] [address] [place], [address] GFR/1.73 sq M.predicted among non-blacks MDRD (S/P/Bld) [Vol rate/Area] 27 mL/min/{1.73_m2} Low >60 [facility] Comment on above: Result Comment: mL/m in/1.73m2 CKD-EPI Creatinine Equation (2020) Performed By: #### L 100.0100, L503.6005, L500.4050 ####[facility] [address] [place], [address] Globulin (S) [Mass/Vol] 3.4 g/dL Normal 2.2-4.2 [facility] Comment on above: Performed By: #### L 100.0100, L503.6005, L500.4050 ####[facility] [address] [place], [address] Glucose [Mass/Vol] 253 mg/dL High 70-99 [facility] Comment on above: Performed By: #### L 100.0100, L503.6005, L500.4050 ####[facility] [address] [place], [address] Potassium [Moles/Vol] 4.7 mmol/L Normal 3.3-5.1 [facility] Comment on above: Result Comment: Hemo lysis present, Results??could be affected.?? Performed By: #### L 100.0100, L503.6005, L500.4050 ####[facility] [address] [place], [address] Sodium [Moles/Vol] 131 mmol/L Low 133-145 [facility] Comment on above: Performed By: #### L 100.0100, L503.6005, L500.4050 ####[facility] [address] [place], [address] T PROT 6.3 g/dL Normal 5.9-8.4 [facility] Comment on above: Performed By: #### L 100.0100, L503.6005, L500.4050 ####[facility] [address] [place], [address] Urea nitrogen [Mass/Vol] 78 mg/dL High 4-19 [facility] Comment on above: Performed By: #### L 100.0100, L503.6005, L500.4050 ####[facility] [address] [place], [address] Foot min 3 Viewson 5 Foot min 3 Views Normal [facility] Lactic Acidon 05-17-2025 Lactate [Moles/Vol] mmol/L Normal 0.0-2.0 [facility] Comment on above: Order Comment: Y Performed By: #### L 100.0100, L503.6005, L500.4050 ####[facility] [address] [place], [address] MR/BMS.BVSon 05-13-2025 MR/BMS.BVS Normal [facility] Cardiovascular stress test r eportOrdered By: Jarret Quiles on 05-11-2025 Study report [facility] [address] [address] MR#: [id number] Acct: [id number] Name: GELY NEWMAN Rep #: [id number] : 1950 75 From: Jarret Quiles MD Primary Care: Dr. Rishi Vasquez DO Sta tus: REG CLI Referring Dr: Jarret Quiles [...] of 55%. This note was generated with [employer] dictation software. It may contain incorrectwords, spelling, and punctuation that were not noted in checking the note beforesigning. 05/11/25829 Date _ Jarret Quiles MD CC: Dr. Jarret Quiles MD; Dr. Rishi Vasquez, DO ~ Date Dictated: 05/11/25827 Date Transcribed: 05/11/25827 [employer] Order Clerk: CARLO Signed [facility] Work Phone: Stress Reporton 05-11-2025 Stress Report Normal [facility] Basic Metabolic Profile (BMP )on 05-08-2025 BUN/CRE 40.4 RATIO High 09-07 [facility] Comment on above: Performed By: #### L 500.2500, L100.0500 ####[facility] [address] [place], [address] Calcium [Mass/Vol] 8.8 mg/dL Normal 7.6-11.0 [facility] Comment on above: Performed By: #### L 500.2500, L100.0500 ####[facility] [address] [place], [address] Chloride [Moles/Vol] 104 mmol/L Normal 98-108 [facility] Comment on above: Performed By: #### L 500.2500, L100.0500 ####[facility] [address] [place], [address] CO2 [Moles/Vol] 22.0 mmol/L Normal 21.0-32.0 [facility] Comment on above: Performed By: #### L 500.2500, L100.0500 ####[facility] [address] [place], [address] Creatinine [Mass/Vol] 0.93 mg/dL Normal 0.70-1.20 [facility] Comment on above: Performed By: #### L 500.2500, L100.0500 ####[facility] [address] [place], [address] GAP 12 Normal 5-15 [facility] Comment on above: Performed By: #### L 500.2500, L100.0500 ####[facility] [address] [place], [address] GFR/1.73 sq M.predicted among non-blacks MDRD (S/P/Bld) [Vol rate/Area] 65 mL/min/{1.73_m2} Normal >60 [facility] Comment on above: Result Comment: mL/m in/1.73m2 CKD-EPI Creatinine Equation (2020) Performed By: #### L 500.2500, L100.0500 ####[facility] [address] [place], [address] Glucose [Mass/Vol] 197 mg/dL High 70-99 [facility] Comment on above: Performed By: #### L 500.2500, L100.0500 ####[facility] [address] [place], [address] Potassium [Moles/Vol] 4.4 mmol/L Normal 3.3-5.1 [facility] Comment on above: Performed By: #### L 500.2500, L100.0500 ####[facility] [address] [place], [address] Sodium [Moles/Vol] 138 mmol/L Normal 133-145 [facility] Comment on above: Performed By: #### L 500.2500, L100.0500 ####[facility] [address] [place], [address] Urea nitrogen [Mass/Vol] 38 mg/dL High 4-19 [facility] Comment on above: Performed By: #### L 500.2500, L100.0500 ####[facility] [address] [place], [address] CBC-Complete Blood Cnt No Di ffon 05-08-2025 Erythrocyte distribution width (RBC) [Ratio] 14.9 % High 11.6-14.6 [facility] Comment on above: Performed By: #### L 500.2500, L100.0500 ####[facility] [address] [place], [address] Hematocrit (Bld) [Volume fraction] 32.0 % Low 37-47 [facility] Comment on above: Performed By: #### L 500.2500, L100.0500 ####[facility] [address] [place], [address] Hemoglobin (Bld) [Mass/Vol] 10.4 g/dL Low 12.0-15.0 [facility] Comment on above: Performed By: #### L 500.2500, L100.0500 ####[facility] [address] [place], [address] MCH (RBC) [Entitic mass] 29.6 pg Normal 27.0-32.0 [facility] Comment on above: Performed By: #### L 500.2500, L100.0500 ####[facility] [address] [place], [address] MCHC (RBC) [Mass/Vol] 32.5 g/dL Normal 32-36 [facility] Comment on above: Performed By: #### L 500.2500, L100.0500 ####[facility] [address] [place], [address] MCV (RBC) [Entitic vol] 91.2 fL Normal 81-99 [facility] Comment on above: Performed By: #### L 500.2500, L100.0500 ####[facility] [address] [place], [address] Platelet mean volume (Bld) [Entitic vol] 11.8 fL Normal 6.2-12.0 [facility] Comment on above: Performed By: #### L 500.2500, L100.0500 ####[facility] [address] [place], [address] Platelets (Bld) [#/Vol] 170 10*3/uL Normal 150-450 [facility] Comment on above: Performed By: #### L 500.2500, L100.0500 ####[facility] [address] [place], [address] RBC (Bld) [#/Vol] 3.51 10*6/uL Low 4.2-5.4 [facility] Comment on above: Performed By: #### L 500.2500, L100.0500 ####[facility] [address] [place], [address] RDW SD 50.3 fl High 35.1-43.9 [facility] Comment on above: Performed By: #### L 500.2500, L100.0500 ####[facility] [address] [place], [address] WBC (Bld) [#/Vol] 6.0 10*3/uL Normal 4.4-11.0 [facility] Comment on above: Performed By: #### L 500.2500, L100.0500 ####[facility] [address] [place], [address] MR/PAT.ANEon 05-08-2025 MR/PAT.ANE Normal [facility] Cardiology Visit Reporton Cardiology Visit Report Normal [facility] CNPChandrika 05-06-2025 [facility] -------- GELY NEWMAN ([id number]) 1950 F Date Time Provider Department 05/06/25 RISHI VASQUEZPWS During your visit today, we recorded the following information about you: Sara Solis RN 05/06/2025 12:30 PM Signed Pt called in and reports she went in to [facility] and they told her that her insurance doesn't cover the Glipizide 5 mg tablets without a PA. Pt states she got them before and her insurance covered them. Pt states she paid out of pocket for 5 days worth of pills. Prior Authorization Documentation Prior authorization requested for the following medication: Medication: Glipizide Provider: Sushma Escobedo Insurance Company Name: [employer] Medicare Advantage [employer] Phone number:[phone] Patient ID number: [id number] Pharmacy Name: [facility] Telephone number: [phone] Any Rodriguez LPN 05/06/2025 1:17 PM Signed Electronic PA requested. Any Rodriguez LPN 05/06/2025 1:21 PM Signed This is the PA response. Close reason: Product not covered by this plan. Prior Authorization not available. Payer: [employer] [phone] Note from payer: This drug/product is not covered under the pharmacy benefit. Prior Authorization is not available. Any Rodriguez LPN 05/06/2025 2:55 PM Signed Called pt and message left she can either ask the pharmacy to run the rx with a discount card or call back and ask the provider to change the medicine. Rishi Vasquez DO 05/06/2025 8:20 PM Signed Agree with DO Will Caballero Amanda, RN 05/07/2025 11:28 AM Signed Called and left a detailed voicemail notifying patient of providers message. Clinic phone number was left for the patient to call back if she would like the provider to change her medication. Sara Babulski, Lebron Harrison RN 05/07/2025 1:08 PM Signed Pt phoned [...] Provider: RISHI VASQUEZ DO Garrison, Jordan L, 05/11/2025 7:40 AM Signed Addended by: RISHI [...] 1 tablet by mouth once daily. - Fihlimfx-Qjyq-Tuz-Folic Acid 18-0.4 mg tab Take 1 tablet [...] 10/24/2016 CKD (more content not included)... 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 Irene, who discussed potential surgery for [...] mellitus (HCC) Coronary artery disease Dr. Ch Asphalt Patcher, 90% blockage- unable to do stenting Diabetes mellitus type 2 in obese Diabetic feet (HCC) Gangrene (HCC) 2012 RIGHT FOOT Hypertension Mild non proliferative diabetic retinopathy (HCC) 06/11/2013 Both eyes, Dr. Ortiz [facility]-03/25/2020 left mild, right moderate Multiple thyroid nodules last US 01/2015 Peripheral artery disease due to Diabetes mellitus, Dr. Kwaku Moscoso Rotator cuff syndrome of left shoulder Dr. Regi Thompson [facility] PAST SURGICAL HISTORY Procedure Laterality Date AMPUTATION [...] ROTATOR CUFF REPAIR 03/11/14 Dr. Regi Thompson [facility] SLCTV CATHJ EA 1ST ORD ABDL PEL/LXTR [...] 650 m (more content not included)... Normal [facility] Thyroidon 04-27-2025 Thyroid Normal [facility] Duplex ultrasound of carotid artery reportOrdered By: Russell Clement on 04-23-2025 Study report [facility] [address] [place] [address] Carotid Duplex Ultrasound 04/20/25 1337 MR#: [id number] Acct: [id number] Name: GELY NEWMAN Rep #:[id number] : 1950 75 From: Russell Abraham Attending [...] the left vertebral artery. Procedure Carotid Duplex 24688. This is a Carotid Duplex examination using [...] Dictated: 04/20/25 1337 Date Transcribed: 04/23/25 1037 [employer] Order Clerk: Signed [facility] Work Phone: Carotid Duplex Ultrasoundon 04-20-2025 Carotid Duplex Ultrasound Normal [facility] CNPNon 04-16-2025 [facility] -------- GELY NEWMAN ([id number]) 1950 F Date Time Provider Department 04/16/25 RISHI VASQUEZWS During your visit today, we recorded the following information about you: Hina Lomeli RN 04/16/2025 9:34 AM Signed Jessika calling from [facility] to report plan of care for patient and snf will continue visit patient 1 time a week for 5 weeks. detention will work with patient on wound care to bilateral lower extremities. Patient is being follow by Dr. Irene for wound care. No call back needed. Hina Lomeli RN Allergies As of Date: 04/16/2025 Noted Allergy Reaction SULFA (SULFONAMIDE ANTIBIOTICS) 01/13/2013 16 - Unknown Comments: childhood Date Reviewed: 03/27/2025 Reviewed by: Rachel Jacobs MA - Fully Assessed Reason for Visit: Assisted Plan of Care [Other] Prescriptions as of [...] 1 tablet by mouth once daily. - Enqbkhwo-Hsor-Dqu-Folic Acid 18-0.4 mg tab Take 1 tablet [...] [L72.3, L08.9] 02/26/2019 Coronary artery disease involving [place] heart *05/28/2019 Abnormal urine odor [R82.90] 05/28/2019 [...] Status:Closed by HINA LOMELI on 04/16/25 Normal [facility] Anion gap in Serum or Plasma Ordered By: Russell Clement on 04-15-2025 Anion gap [Moles/Vol] 13 mmol/L - [facility] BUN/creatinine ratioOrdered By: Russell Clement on 04-15-2025 Urea nitrogen/Creatinine [Mass ratio] 33.4 mg/mg High [facility] Basic Metabolic Profile (BMP )on 04-15-2025 BUN/CRE 33.4 RATIO High [address] [place] [address] Comment on above: Performed By: #### L 500.2500, L100.0500 ####[facility] [address] [place], [address] Calcium [Mass/Vol] 9.3 mg/dL Normal 7.6-11.0 [facility] Comment on above: Performed By: #### L 500.2500, L100.0500 ####[facility] [address] [place], [address] Chloride [Moles/Vol] 106 mmol/L Normal 98-108 [facility] Comment on above: Performed By: #### L 500.2500, L100.0500 ####[facility] [address] [place], [address] CO2 [Moles/Vol] 21.9 mmol/L Normal 21.0-32.0 [facility] Comment on above: Performed By: #### L 500.2500, L100.0500 ####[facility] [address] [place], [address] Creatinine [Mass/Vol] 1.07 mg/dL Normal 0.70-1.20 [facility] Comment on above: Performed By: #### L 500.2500, L100.0500 ####[facility] [address] [place], [address] ECRCL 48.30 ml/min Low 50-250 [facility] Comment on above: Performed By: #### L 500.2500, L100.0500 ####[facility] [address] [place], [address] GAP 13 Normal 5-15 [facility] Comment on above: Performed By: #### L 500.2500, L100.0500 ####[facility] [address] [place], [address] GFR/1.73 sq M.predicted among non-blacks MDRD (S/P/Bld) [Vol rate/Area] 55 mL/min/{1.73_m2} Low >60 [facility] Comment on above: Result Comment: mL/m in/1.73m2 CKD-EPI Creatinine Equation (2020) Performed By: #### L 500.2500, L100.0500 ####[facility] [address] [place], [address] Glucose [Mass/Vol] 152 mg/dL High 70-99 [facility] Comment on above: Performed By: #### L 500.2500, L100.0500 ####[facility] [address] [place], [address] Potassium [Moles/Vol] 4.9 mmol/L Normal 3.3-5.1 [facility] Comment on above: Performed By: #### L 500.2500, L100.0500 ####[facility] [address] [place], [address] Sodium [Moles/Vol] 140 mmol/L Normal 133-145 [facility] Comment on above: Performed By: #### L 500.2500, L100.0500 ####[facility] [address] [place], [address] Urea nitrogen [Mass/Vol] 36 mg/dL High 4-19 [facility] Comment on above: Performed By: #### L 500.2500, L100.0500 ####[facility] [address] [place], [address] CBC-Complete Blood Cnt No Di ffon 04-15-2025 Erythrocyte distribution width (RBC) [Ratio] 15.8 % High 11.6-14.6 [facility] Comment on above: Performed By: #### L 500.2500, L100.0500 ####[facility] [address] [place], [address] Hematocrit (Bld) [Volume fraction] 38.4 % Normal 37-47 [facility] Comment on above: Performed By: #### L 500.2500, L100.0500 ####[facility] [address] [place], [address] Hemoglobin (Bld) [Mass/Vol] 12.2 g/dL Normal 12.0-15.0 [facility] Comment on above: Performed By: #### L 500.2500, L100.0500 ####[facility] [address] [place], [address] MCH (RBC) [Entitic mass] 29.5 pg Normal 27.0-32.0 [facility] Comment on above: Performed By: #### L 500.2500, L100.0500 ####[facility] [address] [place], [address] MCHC (RBC) [Mass/Vol] 31.8 g/dL Low 32-36 [facility] Comment on above: Performed By: #### L 500.2500, L100.0500 ####[facility] [address] [place], [address] MCV (RBC) [Entitic vol] 92.8 fL Normal 81-99 [facility] Comment on above: Performed By: #### L 500.2500, L100.0500 ####[facility] [address] [place], [address] Platelet mean volume (Bld) [Entitic vol] 11.4 fL Normal 6.2-12.0 [facility] Comment on above: Performed By: #### L 500.2500, L100.0500 ####[facility] [address] [place], [address] Platelets (Bld) [#/Vol] 205 10*3/uL Normal 150-450 [facility] Comment on above: Performed By: #### L 500.2500, L100.0500 ####[facility] [address] [place], [address] RBC (Bld) [#/Vol] 4.14 10*6/uL Low 4.2-5.4 [facility] Comment on above: Performed By: #### L 500.2500, L100.0500 ####[facility] [address] [place], [address] RDW SD 53.9 fl High 35.1-43.9 [facility] Comment on above: Performed By: #### L 500.2500, L100.0500 ####[facility] [address] [place], [address] WBC (Bld) [#/Vol] 7.7 10*3/uL Normal 4.4-11.0 [facility] Comment on above: Performed By: #### L 500.2500, L100.0500 ####[facility] [address] [place], [address] [facility] CNPN Telephone (FAMPWS) -------- GELY NEWMAN ([id number]) 1950 F Date Time Provider Department 04/15/25 FOUZIA ESCOBEDO [facility] During your visit today, we recorded the [...] 1 tablet by mouth once daily. - Gwqxwczs-Qges-Msl-Folic Acid 18-0.4 mg tab Take 1 tablet [...] [L72.3, L08.9] 02/26/2019 Coronary artery disease involving [place] heart *05/28/2019 Abnormal urine odor [R82.90] 05/28/2019 [...] Status:Closed by FOUZIA ESCOBEDO on 04/15/25 Normal [facility] Carbon dioxide, total [Moles /volume] in Central venous bloodOrdered By: Russell Clement on 04-15-2025 CO2 [Moles/Vol] 21.9 mmol/L 21.0-32.0 [facility] Chloride assayOrdered By: Woo Clement on 04-15-2025 Chloride [Moles/Vol] 106 mmol/L 98-108 [facility] Erythrocyte distribution wid th ratioOrdered By: Russell Clement on 04-15-2025 Erythrocyte distribution width (RBC) [Ratio] 15.8 % High 11.6-14.6 [facility] Erythrocyte distribution wid th standard deviationOrdered By: Russell Clement on 04-15-2025 Erythrocyte distribution width (RBC) [Ratio] 53.9 fl High 35.1-43.9 [facility] Glomerular filtration rate ( GFR) estimation/1.73 sq m using serum, plasma, or whole bOrdered By: Russell Clement on 04-15-2025 GFR/1.73 sq M.predicted among non-blacks MDRD (S/P/Bld) [Vol rate/Area] 55 mL/min/{1.73_m2} Low >60 [facility] Comment on above: mL/min/1.73m2 CKD-EP I Creatinine Equation (2020) Hematocrit Auto (Bld) [Volum e fraction]Ordered By: Russell Clement on 04-15-2025 Hematocrit (Bld) [Volume fraction] 38.4 % 37-47 [facility] Hemoglobin measurementOrdere d By: Russell Clement on 04-15-2025 Hemoglobin (Bld) [Mass/Vol] 12.2 g/dL 12.0-15.0 [facility] MCV (mean corpuscular volume ) determinationOrdered By: Russell Clement on 04-15-2025 MCV (RBC) [Entitic vol] 92.8 fL 81-99 [facility] Mean corpuscular hemoglobin (MCH) determinationOrdered By: Russell Clement on 04-15-2025 MCH (RBC) [Entitic mass] 29.5 pg 27.0-32.0 [facility] Mean corpuscular hemoglobin concentration (MCHC) determinationOrdered By: Russell Clement on 04-15-2025 MCHC (RBC) [Mass/Vol] 31.8 g/dL Low 32-36 [facility] Mean platelet volume determi nationOrdered By: Russell Clement on 04-15-2025 Platelet mean volume (Bld) [Entitic vol] 11.4 fL 6.2-12.0 [facility] Operative Reporton Operative Report Normal [facility] Platelet countOrdered By: Woo Clement on 04-15-2025 Platelets (Bld) [#/Vol] 205 10*3/uL 150-450 [facility] Potassium measurement (mass/ volume)Ordered By: Russell Clement on 04-15-2025 Potassium (Unsp spec) [Mass/Vol] 4.9 mmol/L 3.3-5.1 [facility] RBC Auto (Bld) [#/Vol]Ordere d By: Russell Clement on 04-15-2025 RBC (Bld) [#/Vol] 4.14 10*6/uL Low 4.2-5.4 [facility] Serum creatinine measurement (mass/volume)Ordered By: Russell Clement on 04-15-2025 Creatinine [Mass/Vol] 1.07 mg/dL 0.70-1.20 [facility] Serum glucose measurement (m ass/volume)Ordered By: Russell Clement on 04-15-2025 Glucose [Mass/Vol] 152 mg/dL High 70-99 [facility] Serum or plasma calcium natalia urement (mass/volume)Ordered By: Russell Urbano on 04-15-2025 Calcium [Mass/Vol] 9.3 mg/dL 7.6-11.0 [facility] Serum or plasma urea nitroge n measurement (mass/volume)Ordered By: [facility] Urbano on 04-15-2025 Urea nitrogen [Mass/Vol] 36 mg/dL High 4-19 [facility] Sodium [facility]Ordered By: [facility] Sodium [Moles/Vol] 140 mmol/L 133-145 [facility] White blood cell (WBC) count Ordered By: Russell Clement on 04-15-2025 WBC (Bld) [#/Vol] 7.7 10*3/uL 4.4-11.0 [facility] CNPNon 04-10-2025 CNPN Telephone ([facility] -------- GELY NEWMAN ([id number]) 1950 F Date Time Provider Department 04/10/25 FOUZIA ESCOBEDO During your visit today, we recorded the following information about you: Meagan Martinez MA 04/27/2025 9:42 AM Signed See update from pt regarding blood sugars and medication change. Please advise. ALFONSO Nicole Amanda, GORGE 04/27/2025 11:39 AM Signed Per providers request [...] or 3b CKD (HCC) [N18.30] Order(s):HEMOGLOBIN A1C [UWVQQ6I] Order #: [id number] FUTURE COMPREHENSIVE METABOLIC PANEL [SQCMP] Order #: [id number] FUTURE glipiZIDE (GLUCOTROL XL) 5 mg 24 [...] 1 tablet by mouth once daily. - Mdfmjdhf-Jpfc-Jgd-Folic Acid 18-0.4 mg tab Take 1 tablet by mouth once daily. - omega-3 fatty acids 1,000 mg cap Take 1 capsule by mouth once daily. - Aspirin 81 mg Tab Take 1 tablet by mouth once daily. Take with food. Medication notes this encounter METFORMIN 500 MG TABLET >> Fouzia Escobedo APRN.FLAKE CUTTER OPERATOR 04/10/2025 4:[address] solomon [...] [L72.3, L08.9] 02/26/2019 Coronary artery disease involving [place] heart *05/28/2019 Abnormal urine odor [R82.90] 05/28/2019 [...] for prudencio (more content not included)... Normal [facility] Basic Metabolic Profile (BMP )on 04-09-2025 BUN Normal 4-19 [facility] Comment on above: Result Comment: Canc elled via OM: Order cancelled - Patient discharged Performed By: #### L 500.2500, L100.0100 ####[facility] [address] [place], [address] BUN/CRE Normal 10-20 [facility] Comment on above: Result Comment: Canc elled via OM: Order cancelled - Patient discharged Performed By: #### L 500.2500, L100.0100 ####[facility] [address] [place], [address] Calcium Normal 7.6-11.0 [facility] Comment on above: Result Comment: Canc elled via OM: Order cancelled - Patient discharged Performed By: #### L 500.2500, L100.0100 ####[facility] [address] [place], [address] CL Normal 98-108 [facility] Comment on above: Result Comment: Canc elled via OM: Order cancelled - Patient discharged Performed By: #### L 500.2500, L100.0100 ####[facility] [address] [place], [address] CO2 Normal 21.0-32.0 [facility] Comment on above: Result Comment: Canc elled via OM: Order cancelled - Patient discharged Performed By: #### L 500.2500, L100.0100 ####[facility] [address] [place], [address] CREAT,SERUM Normal 0.70-1.20 [facility] Comment on above: Result Comment: Canc elled via OM: Order cancelled - Patient discharged Performed By: #### L 500.2500, L100.0100 ####[facility] [address] [place], [address] eGFR Normal >60 [facility] Comment on above: Result Comment: Canc elled via OM: Order cancelled - Patient discharged Performed By: #### L 500.2500, L100.0100 ####[facility] [address] [place], [address] GAP Normal 5-15 [facility] Comment on above: Result Comment: Canc elled via OM: Order cancelled - Patient discharged Performed By: #### L 500.2500, L100.0100 ####[facility] [address] [place], [address] GLU Normal 70-99 [facility] Comment on above: Result Comment: Canc elled via OM: Order cancelled - Patient discharged Performed By: #### L 500.2500, L100.0100 ####[facility] [address] [place], [address] Potassium Normal 3.3-5.1 [facility] Comment on above: Result Comment: Canc elled via OM: Order cancelled - Patient discharged Performed By: #### L 500.2500, L100.0100 ####[facility] [address] [place], [address] Basic Metabolic Profile (BMP) Normal 133-145 [facility] Comment on above: Result Comment: Canc elled via OM: Order cancelled - Patient discharged Performed By: #### L 500.2500, L100.0100 ####[facility] [address] [place], [address] CBC W/Diff, Automatedon 05- Absolute Neut Normal 2.0-7.7 [facility] Comment on above: Result Comment: Canc elled via OM: Order cancelled - Patient discharged Performed By: #### L 500.2500, L100.0100 ####[facility] [address] [place], [address] HCT Normal 37-47 [facility] Comment on above: Result Comment: Canc elled via OM: Order cancelled - Patient discharged Performed By: #### L 500.2500, L100.0100 ####[facility] [address] [place], [address] HGB Normal 12.0-15.0 [facility] Comment on above: Result Comment: Canc elled via OM: Order cancelled - Patient discharged Performed By: #### L 500.2500, L100.0100 ####[facility] [address] [place], [address] MCH Normal 27.0-32.0 [facility] Comment on above: Result Comment: Canc elled via OM: Order cancelled - Patient discharged Performed By: #### L 500.2500, L100.0100 ####[facility] [address] [place], [address] MCHC Normal 32-36 [facility] Comment on above: Result Comment: Canc elled via OM: Order cancelled - Patient discharged Performed By: #### L 500.2500, L100.0100 ####[facility] [address] [place], [address] MCV Normal 81-99 [facility] Comment on above: Result Comment: Canc elled via OM: Order cancelled - Patient discharged Performed By: #### L 500.2500, L100.0100 ####[facility] [address] [place], [address] NEUT% Normal 47-70 [facility] Comment on above: Result Comment: Canc elled via OM: Order cancelled - Patient discharged Performed By: #### L 500.2500, L100.0100 ####[facility] [address] [place], [address] PLT Normal 150-450 [facility] Comment on above: Result Comment: Canc elled via OM: Order cancelled - Patient discharged Performed By: #### L 500.2500, L100.0100 ####[facility] [address] [place], [address] RBC Normal 4.2-5.4 [facility] Comment on above: Result Comment: Canc elled via OM: Order cancelled - Patient discharged Performed By: #### L 500.2500, L100.0100 ####[facility] [address] [place], [address] RDW CV Normal 11.6-14.6 [facility] Comment on above: Result Comment: Canc elled via OM: Order cancelled - Patient discharged Performed By: #### L 500.2500, L100.0100 ####[facility] [address] [place], [address] RDW SD Normal 35.1-43.9 [facility] Comment on above: Result Comment: Canc elled via OM: Order cancelled - Patient discharged Performed By: #### L 500.2500, L100.0100 ####[facility] [address] [place], [address] WBC Normal 4.4-11.0 [facility] Comment on above: Result Comment: Canc elled via OM: Order cancelled - Patient discharged Performed By: #### L 500.2500, L100.0100 ####[facility] [address] [place], [address] MR/BMS.BVSon 04-03-2025 MR/BMS.BVS Normal [facility] Basic Metabolic Profile (BMP )on 04-02-2025 BUN Normal 4-19 [facility] Comment on above: Result Comment: Canc elled via OM: Order cancelled - Patient discharged Performed By: #### L 500.2500, L100.0100 ####[facility] [address] [place], [address] BUN/CRE Normal 10-20 [facility] Comment on above: Result Comment: Canc elled via OM: Order cancelled - Patient discharged Performed By: #### L 500.2500, L100.0100 ####[facility] [address] [place], [address] Calcium Normal 7.6-11.0 [facility] Comment on above: Result Comment: Canc elled via OM: Order cancelled - Patient discharged Performed By: #### L 500.2500, L100.0100 ####[facility] [address] [place], [address] CL Normal 98-108 [facility] Comment on above: Result Comment: Canc elled via OM: Order cancelled - Patient discharged Performed By: #### L 500.2500, L100.0100 ####[facility] [address] [place], [address] CO2 Normal 21.0-32.0 [facility] Comment on above: Result Comment: Canc elled via OM: Order cancelled - Patient discharged Performed By: #### L 500.2500, L100.0100 ####[facility] [address] [place], [address] CREAT,SERUM Normal 0.70-1.20 [facility] Comment on above: Result Comment: Canc elled via OM: Order cancelled - Patient discharged Performed By: #### L 500.2500, L100.0100 ####[facility] [address] [place], [address] eGFR Normal >60 [facility] Comment on above: Result Comment: Canc elled via OM: Order cancelled - Patient discharged Performed By: #### L 500.2500, L100.0100 ####[facility] [address] [place], [address] GAP Normal 5-15 [facility] Comment on above: Result Comment: Canc elled via OM: Order cancelled - Patient discharged Performed By: #### L 500.2500, L100.0100 ####[facility] [address] [place], [address] GLU Normal 70-99 [facility] Comment on above: Result Comment: Canc elled via OM: Order cancelled - Patient discharged Performed By: #### L 500.2500, L100.0100 ####[facility] [address] [place], [address] Potassium Normal 3.3-5.1 [facility] Comment on above: Result Comment: Canc elled via OM: Order cancelled - Patient discharged Performed By: #### L 500.2500, L100.0100 ####[facility] [address] [place], [address] Basic Metabolic Profile (BMP) Normal 133-145 [facility] Comment on above: Result Comment: Canc elled via OM: Order cancelled - Patient discharged Performed By: #### L 500.2500, L100.0100 ####[facility] [address] [place], [address] CBC W/Diff, Automatedon 05-1 Absolute Neut Normal 2.0-7.7 [facility] Comment on above: Result Comment: Canc elled via OM: Order cancelled - Patient discharged Performed By: #### L 500.2500, L100.0100 ####[facility] [address] [place], [address] HCT Normal 37-47 [facility] Comment on above: Result Comment: Canc elled via OM: Order cancelled - Patient discharged Performed By: #### L 500.2500, L100.0100 ####[facility] [address] [place], [address] HGB Normal 12.0-15.0 [facility] Comment on above: Result Comment: Canc elled via OM: Order cancelled - Patient discharged Performed By: #### L 500.2500, L100.0100 ####[facility] [address] [place], [address] MCH Normal 27.0-32.0 [facility] Comment on above: Result Comment: Canc elled via OM: Order cancelled - Patient discharged Performed By: #### L 500.2500, L100.0100 ####[facility] [address] [place], [address] MCHC Normal 32-36 [facility] Comment on above: Result Comment: Canc elled via OM: Order cancelled - Patient discharged Performed By: #### L 500.2500, L100.0100 ####[facility] [address] [place], [address] MCV Normal 81-99 [facility] Comment on above: Result Comment: Canc elled via OM: Order cancelled - Patient discharged Performed By: #### L 500.2500, L100.0100 ####[facility] [address] [place], [address] NEUT% Normal 47-70 [facility] Comment on above: Result Comment: Canc elled via OM: Order cancelled - Patient discharged Performed By: #### L 500.2500, L100.0100 ####[facility] [address] [place], [address] PLT Normal 150-450 [facility] Comment on above: Result Comment: Canc elled via OM: Order cancelled - Patient discharged Performed By: #### L 500.2500, L100.0100 ####[facility] [address] [place], [address] RBC Normal 4.2-5.4 [facility] Comment on above: Result Comment: Canc elled via OM: Order cancelled - Patient discharged Performed By: #### L 500.2500, L100.0100 ####[facility] [address] [place], [address] RDW CV Normal 11.6-14.6 [facility] Comment on above: Result Comment: Canc elled via OM: Order cancelled - Patient discharged Performed By: #### L 500.2500, L100.0100 ####[facility] [address] [place], [address] RDW SD Normal 35.1-43.9 [facility] Comment on above: Result Comment: Canc elled via OM: Order cancelled - Patient discharged Performed By: #### L 500.2500, L100.0100 ####[facility] [address] [place], [address] WBC Normal 4.4-11.0 [facility] Comment on above: Result Comment: Canc elled via OM: Order cancelled - Patient discharged Performed By: #### L 500.2500, L100.0100 ####[facility] [address] [place], [address] CNOVon 03-27-2025 [facility] -------- GELY NEWMAN ([id number]) 1950 F Date Time Provider Department 03/27/25 10:00 AM LOUISELOGYUMIKO OCHOA During your visit today, we recorded the following information about you: Pulse Respiration Blood pressure 74/minute 16/minute 134/68 Yumiko Whitehead APRN.FLAKE CUTTER OPERATOR 03/27/2025 11:01 AM Signed 03/26/2025 Patient presents with: ER F/U: [facility] ED -03/20/25 Multiple falls, gangrene SADIE feet SUBJECTIVE: This is a 75 year old that is here today for Above Complaints. HOSPITAL/ER FOLLOW UP: Reason for visit: Recurrent falls, Which facility: [facility] transferred to [facility] Date of visit: 03/07/2025-03/11/2025 [facility] then to TCU 03/11/2025-03/19/2025 Diagnosis: UTI, Rhabdomyolysis, [...] mellitus (HCC) Coronary artery disease Dr. Ch Asphalt Patcher, 90% blockage- unable to do stenting Diabetes mellitus type 2 in obese Diabetic feet (HCC) Gangrene (HCC) 2012 RIGHT FOOT Hypertension Mild non proliferative diabetic retinopathy (HCC) 06/11/2013 Both eyes, Dr. Ortiz [facility]-03/25/2020 left mild, right moderate Multiple thyroid nodules last US 01/2015 Peripheral artery disease (HCC) due to Diabetes mellitus, Dr. Kwaku Moscoso Rotator cuff syndrome of left shoulder Dr. Del[facility] ALLERGIES Sulfa (Sulfonamide Antibiotics) MEDICATIONS Current Outpatient [...] Take 1 tablet by mouth once daily. Sxhisnsp-Ednm-Jvj-Folic Acid 18-0.4 mg tab Take 1 tablet [...] due on (more content not included)... [facility] ([facility] -------- GELY NEWMAN ([id number]) 1950 F Date Time Provider Department 03/27/25 YUMIKO WHITEHEAD During your visit today, we recorded the following information about you: Yumiko Whitehead APRN.CNP 03/27/2025 10:59 AM Signed Please fax printed order for walker to [facility]. In my outbox. YAEL Trujillo Kathryn, MA 03/30/2025 10:04 AM Signed Order, OV, discharge summary faxed to [facility]. Michaela Millan MA Allergies As of Date: [...] 1 tablet by mouth once daily. - Dmkisjqz-Hzai-Jwf-Folic Acid 18-0.4 mg tab Take 1 tablet [...] [L72.3, L08.9] 02/26/2019 Coronary artery disease involving [place] heart *05/28/2019 Abnormal urine odor [R82.90] 05/28/2019 [...] Status:Closed by MICHAELA MILLAN on 03/30/25 Normal [facility] Basic Metabolic Profile (BMP )on 03-26-2025 BUN Normal 4-19 [facility] Comment on above: Result Comment: Canc elled via OM: Order cancelled - Patient discharged Performed By: #### L 500.2500, L100.0100 ####[facility] [address] [place], [address] BUN/CRE Normal 10-20 [facility] Comment on above: Result Comment: Canc elled via OM: Order cancelled - Patient discharged Performed By: #### L 500.2500, L100.0100 ####[facility] [address] [place], [address] Calcium Normal 7.6-11.0 [facility] Comment on above: Result Comment: Canc elled via OM: Order cancelled - Patient discharged Performed By: #### L 500.2500, L100.0100 ####[facility] [address] [place], [address] CL Normal 98-108 [facility] Comment on above: Result Comment: Canc elled via OM: Order cancelled - Patient discharged Performed By: #### L 500.2500, L100.0100 ####[facility] [address] [place], [address] CO2 Normal 21.0-32.0 [facility] Comment on above: Result Comment: Canc elled via OM: Order cancelled - Patient discharged Performed By: #### L 500.2500, L100.0100 ####[facility] [address] [place], [address] CREAT,SERUM Normal 0.70-1.20 [facility] Comment on above: Result Comment: Canc elled via OM: Order cancelled - Patient discharged Performed By: #### L 500.2500, L100.0100 ####[facility] [address] [place], [address] eGFR Normal >60 [facility] Comment on above: Result Comment: Canc elled via OM: Order cancelled - Patient discharged Performed By: #### L 500.2500, L100.0100 ####[facility] [address] [place], [address] GAP Normal 5-15 [facility] Comment on above: Result Comment: Canc elled via OM: Order cancelled - Patient discharged Performed By: #### L 500.2500, L100.0100 ####[facility] [address] [place], [address] GLU Normal 70-99 [facility] Comment on above: Result Comment: Canc elled via OM: Order cancelled - Patient discharged Performed By: #### L 500.2500, L100.0100 ####[facility] [address] [place], [address] Potassium Normal 3.3-5.1 [facility] Comment on above: Result Comment: Canc elled via OM: Order cancelled - Patient discharged Performed By: #### L 500.2500, L100.0100 ####[facility] [address] [place], [address] Basic Metabolic Profile (BMP) Normal 133-145 [facility] Comment on above: Result Comment: Canc elled via OM: Order cancelled - Patient discharged Performed By: #### L 500.2500, L100.0100 ####[facility] [address] [place], [address] CBC W/Diff, Automatedon 05-0 8-2025 Absolute Neut Normal 2.0-7.7 [facility] Comment on above: Result Comment: Canc elled via OM: Order cancelled - Patient discharged Performed By: #### L 500.2500, L100.0100 ####[facility] [address] [place], [address] HCT Normal 37-47 [facility] Comment on above: Result Comment: Canc elled via OM: Order cancelled - Patient discharged Performed By: #### L 500.2500, L100.0100 ####[facility] [address] [place], [address] HGB Normal 12.0-15.0 [facility] Comment on above: Result Comment: Canc elled via OM: Order cancelled - Patient discharged Performed By: #### L 500.2500, L100.0100 ####[facility] [address] [place], [address] MCH Normal 27.0-32.0 [facility] Comment on above: Result Comment: Canc elled via OM: Order cancelled - Patient discharged Performed By: #### L 500.2500, L100.0100 ####[facility] [address] [place], [address] MCHC Normal 32-36 [facility] Comment on above: Result Comment: Canc elled via OM: Order cancelled - Patient discharged Performed By: #### L 500.2500, L100.0100 ####[facility] [address] [place], [address] MCV Normal 81-99 [facility] Comment on above: Result Comment: Canc elled via OM: Order cancelled - Patient discharged Performed By: #### L 500.2500, L100.0100 ####[facility] [address] [place], [address] NEUT% Normal 47-70 [facility] Comment on above: Result Comment: Canc elled via OM: Order cancelled - Patient discharged Performed By: #### L 500.2500, L100.0100 ####[facility] [address] [place], [address] PLT Normal 150-450 [facility] Comment on above: Result Comment: Canc elled via OM: Order cancelled - Patient discharged Performed By: #### L 500.2500, L100.0100 ####[facility] [address] [place], [address] RBC Normal 4.2-5.4 [facility] Comment on above: Result Comment: Canc elled via OM: Order cancelled - Patient discharged Performed By: #### L 500.2500, L100.0100 ####[facility] [address] [place], [address] RDW CV Normal 11.6-14.6 [facility] Comment on above: Result Comment: Canc elled via OM: Order cancelled - Patient discharged Performed By: #### L 500.2500, L100.0100 ####[facility] [address] [place], [address] RDW SD Normal 35.1-43.9 [facility] Comment on above: Result Comment: Canc elled via OM: Order cancelled - Patient discharged Performed By: #### L 500.2500, L100.0100 ####[facility] [address] [place], [address] WBC Normal 4.4-11.0 [facility] Comment on above: Result Comment: Canc elled via OM: Order cancelled - Patient discharged Performed By: #### L 500.2500, L100.0100 ####[facility] [address] [place], [address] CNPChandrika 03-26-2025 MARKN Telephone ([facility]) -------- GELY NEWMAN ([id number]) 1950 F Date Time Provider Department 03/26/25 RISHI VASQUEZ [facility] During your visit today, we recorded the following information about you: Lebron Jacome RN 03/26/2025 12:50 PM Signed [facility]- reporting updated POC: plans to [...] [facility]. No call back needed if pcp agrees. Clary Andres APRN.MARK 03/26/2025 1:31 PM Signed Agree. BP will be reassessed at appointment tomorrow. Let us know if not addressed at appointment tomorrow. Thank you, Clary Andres APRN.FLAKE CUTTER OPERATOR Allergies As of Date: 03/26/2025 Noted Allergy [...] 1 tablet by mouth once daily. - Wggnvxjk-Vsjr-Fqu-Folic Acid 18-0.4 mg tab Take 1 tablet [...] [L72.3, L08.9] 02/26/2019 Coronary artery disease involving [place] heart *05/28/2019 Abnormal urine odor [R82.90] 05/28/2019 [...] Status:Closed by SELMA GALEANO on 03/26/25 Normal [facility] 03-24-2025 CNPN Telephone ([facility]) -------- GELY NEWMAN ([id number]) 1950 F Date Time Provider Department 03/24/25 RISHI VASQUEZ [facility] During your visit today, we recorded the following information about you: Clemencia Chapman RN 03/24/2025 3:02 PM Signed [facility] calling from [facility] to report plan of care for patient [...] LPN - Fully Assessed Reason for Visit: [facility] PT POC [Other] Prescriptions as of [...] 1 tablet by mouth once daily. - Yjpleyea-Fvaj-Oag-Folic Acid 18-0.4 mg tab Take 1 tablet [...] [L72.3, L08.9] 02/26/2019 Coronary artery disease involving [place] heart *05/28/2019 Abnormal urine odor [R82.90] 05/28/2019 [...] Encounter Status:Closed by CLEMENCIA CHAPMAN on 03/25/25 [facility] Tele[facility] (FAMPWS) -------- GELY NEWMAN ([id number]) 1950 F Date Time Provider Department 03/23/25 [facility] During your visit today, we recorded the following information about you: Melly Pinon LPN 03/23/2025 1:34 PM Signed Tatum with [facility] Nursing calls to report she saw [...] 1 tablet by mouth once daily. - Zcocojmt-Tcse-Zoh-Folic Acid 18-0.4 mg tab Take 1 tablet [...] [L72.3, L08.9] 02/26/2019 Coronary artery disease involving [place] heart *05/28/2019 Abnormal urine odor [R82.90] 05/28/2019 [...] Status:Closed by JESENIA MCGEE on 03/24/25 Normal [facility] Bedside Glucoseon 03-20-2025 FINGERSTICK GLU 155 mg/dL High 74-106 [facility] Comment on above: Result Comment: JEREMIAS GEMENT OF PATIENT CARE PER NURSING PROTOCOL Performed By: #### L 501.080 ####[facility] [address] [place], [address] [facility] 03-20-2025 [facility] Telephone (FAMWS) -------- GELY NEWMAN ([id number]) 1950 F Date Time Provider Department 03/20/25 RISHI VASQUEZ [facility] During your visit today, we recorded the following information about you: Clemencia Chapman RN 03/20/2025 12:55 PM Signed Yvonne with [facility] calls to ask if provider would be willing to follow their discharge orders for SN, PT, OT. Patient discharged home today from [facility] after having hospitalization and rehab for falls and UTI. Call back number is [phone]. GORGE Bo Jordan L, DO 03/20/2025 5:03 PM Signed Yes DO Kit Ernst Krystle, RN 03/23/2025 8:30 AM Signed Call placed to Yvonne and notified of below. Clemencia Chapman RN Allergies As of Date: 03/20/2025 Noted Allergy Reaction SULFA (SULFONAMIDE ANTIBIOTICS) 01/13/2013 16 - Unknown Comments: childhood Date Reviewed: 12/05/2024 Reviewed by: Nasim López LPN - Fully Assessed Reason for Visit: Orders [041] Prescriptions as of 03/23/2025 - hydroCHLOROthiazide 25 [...] 1 tablet by mouth once daily. - Oxvcnrfx-Xxfg-Wbo-Folic Acid 18-0.4 mg tab Take 1 tablet [...] [L72.3, L08.9] 02/26/2019 Coronary artery disease involving [place] heart *05/28/2019 Abnormal urine odor [R82.90] 05/28/2019 [...] Status:Closed by CLEMENCIA CHAPMAN on 03/23/25 Normal [facility] Gl[facility] at [facility] deOrdered By: Phong Solomon on 03-20-2025 Glucose [Mass/Vol] 155 mg/dL High 74-106 [facility] Comment on above: MANAGEMENT OF PATIEN T CARE PER NURSING PROTOCOL Absolute lymphocyte countOrd ered By: Phong Solomon on 03-19-2025 Lymphocytes Auto (Unsp spec) [#/Vol] 1.25 10*3/uL 0.83-4.51 [facility] Absolute neutrophil countOrd ered By: Phong Solomon on 03-19-2025 Neutrophils (Bld) [#/Vol] 3.5 10*3/uL 2.0-7.7 [facility] Anion gap in Serum or Plasma Ordered By: Phong Solomon on 03-19-2025 Anion gap [Moles/Vol] 8 mmol/L 5-15 [facility] Automated lymphocyte count a s percentage of total leukocytesOrdered By: Phong Solomon on 03-19-2025 Lymphocytes/100 WBC Auto (Unsp spec) 22.0 % 19-41 [facility] BRCon 03-19-2025 RC Normal [facility] Comment on above: Result Comment: [id number] AP RC TRANSFUSED 03/19/25 [id number] AP RC TRANSFUSED 03/19/25 1004 Performed By: #### B RC, BTS ####[facility] [address] [place], [address] BUN/creatinine ratioOrdered By: Phong Solomon on 03-19-2025 Urea nitrogen/Creatinine [Mass ratio] 22.6 mg/mg High 10-20 [facility] Basic Metabolic Profile (BMP )on 03-19-2025 BUN/CRE 22.6 RATIO High 1020 [facility] Comment on above: Performed By: #### L 500.2500, L100.0100 ####[facility] [address] [place], [address] Calcium [Mass/Vol] 8.6 mg/dL Normal 7.6-11.0 [facility] Comment on above: Performed By: #### L 500.2500, L100.0100 ####[facility] [address] [place], [address] Chloride [Moles/Vol] 112 mmol/L High 98-108 [facility] Comment on above: Performed By: #### L 500.2500, L100.0100 ####[facility] [address] [place], [address] CO2 [Moles/Vol] 22.1 mmol/L Normal 21.0-32.0 [facility] Comment on above: Performed By: #### L 500.2500, L100.0100 ####[facility] [address] [place], [address] Creatinine [Mass/Vol] 1.47 mg/dL High 0.70-1.20 [facility] Comment on above: Performed By: #### L 500.2500, L100.0100 ####[facility] [address] [place], [address] ECRCL 35.30 ml/min Low 50-250 [facility] Comment on above: Performed By: #### L 500.2500, L100.0100 ####[facility] [address] [place], [address] GAP 8 Normal 5-15 [facility] Comment on above: Performed By: #### L 500.2500, L100.0100 ####[facility] [address] [place], [address] GFR/1.73 sq M.predicted among non-blacks MDRD (S/P/Bld) [Vol rate/Area] 37 mL/min/{1.73_m2} Low >60 [facility] Comment on above: Result Comment: mL/m in/1.73m2 CKD-EPI Creatinine Equation (2020) Performed By: #### L 500.2500, L100.0100 ####[facility] [address] [place], [address] Glucose [Mass/Vol] 111 mg/dL High 70-99 [facility] Comment on above: Performed By: #### L 500.2500, L100.0100 ####[facility] [address] [place], [address] Potassium [Moles/Vol] 4.2 mmol/L Normal 3.3-5.1 [facility] Comment on above: Performed By: #### L 500.2500, L100.0100 ####[facility] [address] [place], [address] Sodium [Moles/Vol] 142 mmol/L Normal 133-145 [facility] Comment on above: Performed By: #### L 500.2500, L100.0100 ####[facility] [address] [place], [address] Urea nitrogen [Mass/Vol] 33 mg/dL High 4-19 [facility] Comment on above: Performed By: #### L 500.2500, L100.0100 ####[facility] [address] [place], [address] Basophil percentageOrdered B y: Phong Servando on 03-19-2025 Basophils/100 WBC (Bld) 1.4 % High 0-1 [facility] Bedside Glucoseon 03-19-2025 FINGERSTICK GLU 230 mg/dL High 74-106 [facility] Comment on above: Result Comment: JEREMIAS GEMENT OF PATIENT CARE PER NURSING PROTOCOL Performed By: #### L 501.080 ####[facility] [address] [place], [address] FINGERSTICK GLU 330 mg/dL High 74-106 [facility] Comment on above: Result Comment: JEREMIAS GEMENT OF PATIENT CARE PER NURSING PROTOCOL Performed By: #### L 501.080 ####[facility] [address] [place], [address] FINGERSTICK GLU 238 mg/dL High 74-106 [facility] Comment on above: Result Comment: JEREMIAS GEMENT OF PATIENT CARE PER NURSING PROTOCOL Performed By: #### L 501.080 ####[facility] [address] [place], [address] FINGERSTICK GLU 103 mg/dL Normal 74-106 [facility] Comment on above: Result Comment: JEREMIAS GEMENT OF PATIENT CARE PER NURSING PROTOCOL Performed By: #### L 501.080 ####[facility] [address] [place], [address] FINGERSTICK GLU 64 mg/dL Low 74-106 [facility] Comment on above: Result Comment: JEREMIAS GEMENT OF PATIENT CARE PER NURSING PROTOCOL Performed By: #### L 501.080 ####[facility] [address] [place], [address] FINGERSTICK GLU 177 mg/dL High 74-106 [facility] Comment on above: Result Comment: JEREMIAS GEMENT OF PATIENT CARE PER NURSING PROTOCOL Performed By: #### L 501.080 ####[facility] [address] [place], [address] FINGERSTICK GLU 106 mg/dL Normal 74-106 [facility] Comment on above: Result Comment: JEREMIAS GEMENT OF PATIENT CARE PER NURSING PROTOCOL Performed By: #### L 501.080 ####[facility] [address] [place], [address] CBC W/Diff, Automatedon 05-0 1-2025 Absolute Lymph 1.25 X10 3/uL Normal 0.83-4.51 [facility] Comment on above: Performed By: #### L 500.2500, L100.0100 ####[facility] [address] [place], [address] Absolute Neut 3.5 X10 3/uL Normal 2.0-7.7 [facility] Comment on above: Performed By: #### L 500.2500, L100.0100 ####[facility] [address] [place], [address] Basophils/100 WBC (Bld) 1.4 % High 0-1 [facility] Comment on above: Performed By: #### L 500.2500, L100.0100 ####[facility] [address] [place], [address] Eosinophils/100 WBC (Bld) 3.5 % Normal 0-5 [facility] Comment on above: Performed By: #### L 500.2500, L100.0100 ####[facility] [address] [place], [address] Erythrocyte distribution width (RBC) [Ratio] 16.2 % High 11.6-14.6 [facility] Comment on above: Performed By: #### L 500.2500, L100.0100 ####[facility] [address] [place], [address] Hematocrit (Bld) [Volume fraction] 24.1 % Low 37-47 [facility] Comment on above: Performed By: #### L 500.2500, L100.0100 ####[facility] [address] [place], [address] Hemoglobin (Bld) [Mass/Vol] 7.6 g/dL Low 12.0-15.0 [facility] Comment on above: Performed By: #### L 500.2500, L100.0100 ####[facility] [address] [place], [address] IG% 0.400 Normal 0.0-0.9 [facility] Comment on above: Result Comment: IG% - Immature Granulocytes (promyelocytes, myelocytes andmetamyelocytes) > 1% indicates that a LEFT SHIFT is Present. Performed By: #### L 500.2500, L100.0100 ####[facility] [address] [place], [address] Lymphocytes/100 WBC (Bld) 22.0 % Normal 19-41 [facility] Comment on above: Performed By: #### L 500.2500, L100.0100 ####[facility] [address] [place], [address] MCH (RBC) [Entitic mass] 29.1 pg Normal 27.0-32.0 [facility] Comment on above: Performed By: #### L 500.2500, L100.0100 ####[facility] [address] [place], [address] MCHC (RBC) [Mass/Vol] 31.5 g/dL Low 32-36 [facility] Comment on above: Performed By: #### L 500.2500, L100.0100 ####[facility] [address] [place], [address] MCV (RBC) [Entitic vol] 92.3 fL Normal 81-99 [facility] Comment on above: Performed By: #### L 500.2500, L100.0100 ####[facility] [address] [place], [address] Monocytes/100 WBC (Bld) 11.1 % High 0-10 [facility] Comment on above: Performed By: #### L 500.2500, L100.0100 ####[facility] [address] [place], [address] Neutrophils/100 WBC (Bld) 61.6 % Normal 47-70 [facility] Comment on above: Performed By: #### L 500.2500, L100.0100 ####[facility] [address] [place], [address] Nucleated RBC (Bld) [#/Vol] 0 10*3/uL Normal 0-5 [facility] Comment on above: Performed By: #### L 500.2500, L100.0100 ####[facility] [address] [place], [address] Platelet mean volume (Bld) [Entitic vol] 11.7 fL Normal 6.2-12.0 [facility] Comment on above: Performed By: #### L 500.2500, L100.0100 ####[facility] [address] [place], [address] Platelets (Bld) [#/Vol] 159 10*3/uL Normal 150-450 [facility] Comment on above: Performed By: #### L 500.2500, L100.0100 ####[facility] [address] [place], [address] RBC (Bld) [#/Vol] 2.61 10*6/uL Low 4.2-5.4 [facility] Comment on above: Performed By: #### L 500.2500, L100.0100 ####[facility] [address] [place], [address] RDW SD 52.6 fl High 35.1-43.9 [facility] Comment on above: Performed By: #### L 500.2500, L100.0100 ####[facility] [address] [place], [address] WBC (Bld) [#/Vol] 5.7 10*3/uL Normal 4.4-11.0 [facility] Comment on above: Performed By: #### L 500.2500, L100.0100 ####[facility] [address] [place], [address] CTA Abd w/Runoff W/WO Contra ston 03-19-2025 CTA Abd w/Runoff W/WO Contrast Normal [facility] Carbon dioxide, total [Moles /volume] in Central venous bloodOrdered By: Phong Solomon on 03-19-2025 CO2 [Moles/Vol] 22.1 mmol/L 21.0-32.0 [facility] Chloride assayOrdered By: Addy Solomon on 03-19-2025 Chloride [Moles/Vol] 112 mmol/L High 98-108 [facility] Eosinophil percentageOrdered By: Phong Solomon on 03-19-2025 Eosinophils/100 WBC (Bld) 3.5 % 0-5 [facility] Erythrocyte distribution wid th ratioOrdered By: Phong Solomon on 03-19-2025 Erythrocyte distribution width (RBC) [Ratio] 16.2 % High 11.6-14.6 [facility] Erythrocyte distribution wid th standard deviationOrdered By: Phong Solomon on 03-19-2025 Erythrocyte distribution width (RBC) [Ratio] 52.6 fl High 35.1-43.9 [facility] Glomerular filtration rate ( GFR) estimation/1.73 sq m using serum, plasma, or whole bOrdered By: Phong Solomon on 03-19-2025 GFR/1.73 sq M.predicted among non-blacks MDRD (S/P/Bld) [Vol rate/Area] 37 mL/min/{1.73_m2} Low >60 [facility] Comment on above: mL/min/1.73m2 CKD-EP I Creatinine Equation (2020) Hematocrit Auto (Bld) [Volum e fraction]Ordered By: Phong Solomon on 03-19-2025 Hematocrit (Bld) [Volume fraction] 24.1 % Low 37-47 [facility] Hemoglobin measurementOrdere d By: Phong Solomon on 03-19-2025 Hemoglobin (Bld) [Mass/Vol] 7.6 g/dL Low 12.0-15.0 [facility] Immature granulocytes/100 WB C Auto (Bld)Ordered By: Phong Solomon 03-19-2025 Immature granulocytes/100 WBC (Bld) 0.400 % 0.0-0.9 [facility] Comment on above: IG% - Immature Granu locytes (promyelocytes, myelocytes and metamyelocytes) > 1% indicates that a LEFT SHIFT is Present. MCV (mean corpuscular volume ) determinationOrdered By: Phong Solomon 03-19-2025 MCV (RBC) [Entitic vol] 92.3 fL 81-99 [facility] Mean corpuscular hemoglobin (MCH) determinationOrdered By: Phong Solomon 03-19-2025 MCH (RBC) [Entitic mass] 29.1 pg 27.0-32.0 [facility] Mean corpuscular hemoglobin concentration (MCHC) determinationOrdered By: Phong Solomon 03-19-2025 MCHC (RBC) [Mass/Vol] 31.5 g/dL Low 32-36 [facility] Mean platelet volume determi nationOrdered By: Phong Solomon 03-19-2025 Platelet mean volume (Bld) [Entitic vol] 11.7 fL 6.2-12.0 [facility] Monocyte percentageOrdered B y: Phong Solomon on 03-19-2025 Monocytes/100 WBC (Bld) 11.1 % High 0-10 [facility] Neutrophil percentageOrdered By: Phong Solomon on 03-19-2025 Neutrophils/100 WBC (Bld) 61.6 % 47-70 [facility] Nucleated red blood cell per centageOrdered By: Phong Solomon on 03-19-2025 Nucleated RBC/100 WBC (Bld) [Ratio] 0 % 0-5 [facility] Platelet countOrdered By: Addy Solomon on 03-19-2025 Platelets (Bld) [#/Vol] 159 10*3/uL 150-450 [facility] Potassium measurement (mass/ volume)Ordered By: Phong Solomon on 03-19-2025 Potassium (Unsp spec) [Mass/Vol] 4.2 mmol/L 3.3-5.1 [facility] RBC Auto (Bld) [#/Vol]Ordere d By: Phong Solomon on 03-19-2025 RBC (Bld) [#/Vol] 2.61 10*6/uL Low 4.2-5.4 [facility] Serum creatinine measurement (mass/volume)Ordered By: Phong Solomon on 03-19-2025 Creatinine [Mass/Vol] 1.47 mg/dL High 0.70-1.20 [facility] Serum glucose measurement (m ass/volume)Ordered By: Phong Solomon on 03-19-2025 Glucose [Mass/Vol] 111 mg/dL High 70-99 [facility] Serum or plasma calcium natalia urement (mass/volume)Ordered By: Phong Solomon on 03-19-2025 Calcium [Mass/Vol] 8.6 mg/dL 7.6-11.0 [facility] Serum or plasma urea nitroge n measurement (mass/volume)Ordered By: Phong Solomon on 03-19-2025 Urea nitrogen [Mass/Vol] 33 mg/dL High 4-19 [facility] Sodium levelOrdered By: Phong Solomon 03-19-2025 Sodium [Moles/Vol] 142 mmol/L 133-145 [facility] Stool Occult Blood iFOBon STOB Negative Normal [facility] Comment on above: Performed By: #### M 100.7900 ####[facility] [address] [place], [place], [id number] Stool gastrointestinal hemog lobin detection by immunologic methodOrdered By: Phong Solomon on 03-19-2025 Lower GI hemoglobin IA Ql (Stl) [facility] Type AND Screenon 03-19-2025 Ab SCREEN GEL Negative Normal [facility] Comment on above: Order Comment: CMV N EG? NNumber of units to transfuse: 2Reason for Ordering Blood: AcuteAre the blood/blood products to be transfused? YIs the patient having/had surgery? Jordan Fitzgerald Performed By: #### B MILI, BTS ####[facility] [address] [place], [address] ABO and Rh group Nom (Bld) Blood group A Rh(D) positive Normal [facility] Comment on above: Order Comment: CMV N EG? NNumber of units to transfuse: 2Reason for Ordering Blood: AcuteAre the blood/blood products to be transfused? YIs the patient having/had surgery? Jordan Fitzgerald Performed By: #### B MILI, BTS ####[facility] [address] [place], [place], [address] White blood cell (WBC) count Ordered By: Phong Solomon on 03-19-2025 WBC (Bld) [#/Vol] 5.7 10*3/uL 4.4-11.0 [facility] Bedside Glucoseon 03-18-2025 FINGERSTICK GLU 158 mg/dL High 74-106 [facility] Comment on above: Result Comment: JEREMIAS GEMENT OF PATIENT CARE PER NURSING PROTOCOL Performed By: #### L 501.080 ####[facility] [address] [place], [address] FINGERSTICK GLU 205 mg/dL High 74-106 [facility] Comment on above: Result Comment: JEREMIAS GEMENT OF PATIENT CARE PER NURSING PROTOCOL Performed By: #### L 501.080 ####[facility] [address] [place], [address] FINGERSTICK GLU 235 mg/dL High 74-106 [facility] Comment on above: Result Comment: JEREMIAS GEMENT OF PATIENT CARE PER NURSING PROTOCOL Performed By: #### L 501.080 ####[facility] [address] [place], [address] FINGERSTICK GLU 89 mg/dL Normal 74-106 [facility] Comment on above: Result Comment: JEREMIAS GEMENT OF PATIENT CARE PER NURSING PROTOCOL Performed By: #### L 501.080 ####[facility] [address] [place], [address] Bedside Glucoseon 03-17-2025 FINGERSTICK GLU 129 mg/dL High 74-106 [facility] Comment on above: Result Comment: JEREMIAS GEMENT OF PATIENT CARE PER NURSING PROTOCOL Performed By: #### L 501.080 ####[facility] [address] [place], [address] FINGERSTICK GLU 101 mg/dL Normal 74-106 [facility] Comment on above: Result Comment: JEREMIAS GEMENT OF PATIENT CARE PER NURSING PROTOCOL Performed By: #### L 501.080 ####[facility] [address] [place], [address] FINGERSTICK GLU 120 mg/dL High 74-106 [facility] Comment on above: Result Comment: JEREMIAS GEMENT OF PATIENT CARE PER NURSING PROTOCOL Performed By: #### L 501.080 ####[facility] [address] [place], [address] Bedside Glucoseon 03-16-2025 FINGERSTICK GLU 154 mg/dL High 74-106 [facility] Comment on above: Result Comment: JEREMIAS GEMENT OF PATIENT CARE PER NURSING PROTOCOL Performed By: #### L 501.080 ####[facility] [address] [place], [address] FINGERSTICK GLU 127 mg/dL High 74-106 [facility] Comment on above: Result Comment: JEREMIAS GEMENT OF PATIENT CARE PER NURSING PROTOCOL Performed By: #### L 501.080 ####[facility] [address] [place], [address] FINGERSTICK GLU 162 mg/dL High 74-106 [facility] Comment on above: Result Comment: JEREMIAS GEMENT OF PATIENT CARE PER NURSING PROTOCOL Performed By: #### L 501.080 ####[facility] [address] [place], [address] FINGERSTICK GLU 120 mg/dL High -[address] [place] [address] Comment on above: Result Comment: JEREMIAS GEMENT OF PATIENT CARE PER NURSING PROTOCOL Performed By: #### L 501.080 ####[facility] [address] [place], [address] Bedside Glucoseon 03-15-2025 FINGERSTICK GLU 247 mg/dL High -106 [facility] Comment on above: Result Comment: JEREMIAS GEMENT OF PATIENT CARE PER NURSING PROTOCOL Performed By: #### L 501.080 ####[facility] [address] [place], [address] FINGERSTICK GLU 256 mg/dL High -106 [facility] Comment on above: Result Comment: JEREMIAS GEMENT OF PATIENT CARE PER NURSING PROTOCOL Performed By: #### L 501.080 ####[facility] [address] [place], [address] FINGERSTICK GLU 286 mg/dL High -106 [facility] Comment on above: Result Comment: JEREMIAS GEMENT OF PATIENT CARE PER NURSING PROTOCOL Performed By: #### L 501.080 ####[facility] [address] [place], [address] FINGERSTICK GLU 161 mg/dL High 74-106 [facility] Comment on above: Result Comment: JEREMIAS GEMENT OF PATIENT CARE PER NURSING PROTOCOL Performed By: #### L 501.080 ####[facility] [address] [place], [address] Bedside Glucoseon 03-14-2025 FINGERSTICK GLU 228 mg/dL High [address] [place] [address] Comment on above: Result Comment: JEREMIAS GEMENT OF PATIENT CARE PER NURSING PROTOCOL Performed By: #### L 501.080 ####[facility] [address] [place], [address] FINGERSTICK GLU 201 mg/dL High [address] [place] [address] Comment on above: Result Comment: JEREMIAS GEMENT OF PATIENT CARE PER NURSING PROTOCOL Performed By: #### L 501.080 ####[facility] [address] [place], [address] FINGERSTICK GLU 204 mg/dL [address] Comment on above: Result Comment: JEREMIAS GEMENT OF PATIENT CARE PER NURSING PROTOCOL Performed By: #### L 501.080 ####[facility] [address] [place], [address] FINGERSTICK GLU 163 mg/dL [address] Comment on above: Result Comment: JEREMIAS GEMENT OF PATIENT CARE PER NURSING PROTOCOL Performed By: #### L 501.080 ####[facility] [address] [place], [address] Bedside Glucoseon 03-13-2025 FINGERSTICK GLU 258 mg/dL High [address] [place] [address] Comment on above: Result Comment: JEREMIAS GEMENT OF PATIENT CARE PER NURSING PROTOCOL Performed By: #### L 501.080 ####[facility] [address] [place], [address] FINGERSTICK GLU 286 mg/dL High [address] [place] [address] Comment on above: Result Comment: JEREMIAS GEMENT OF PATIENT CARE PER NURSING PROTOCOL Performed By: #### L 501.080 ####[facility] [address] [place], [address] FINGERSTICK GLU 217 mg/dL High 74-106 [facility] Comment on above: Result Comment: JEREMIAS GEMENT OF PATIENT CARE PER NURSING PROTOCOL Performed By: #### L 501.080 ####[facility] [address] [place], [address] FINGERSTICK GLU 132 mg/dL High 74-106 [facility] Comment on above: Result Comment: JEREMIAS GEMENT OF PATIENT CARE PER NURSING PROTOCOL Performed By: #### L 501.080 ####[facility] [address] [place], [place], [address] Calculated very low density lipoprotein (VLDL) cholesterol measurementOrdered By: Phong Solomon on 03-13-2025 Calculated very low density lipoprotein (VLDL) cholesterol measurement 25 mg/dL 5-40 [facility] Consultation - Surgicalon Consultation - Surgical Normal [facility] LDL calc ser/plasOrdered By: Phong Solomon on 03-13-2025 Cholesterol in LDL [Mass/Vol] 39 mg/dL [facility] Comment on above: Jokebkwmyo=344-860 m g/dL & Higher Pdqr=365 mg/dL or greater Lipid Profileon 03-13-2025 CHOL:HDL 2.85 Normal [facility] Comment on above: Performed By: #### L 500.4100 ####[facility] [address] [place], [place], [address] Cholesterol [Mass/Vol] 99 mg/dL Normal <=200 [facility] Comment on above: Result Comment: Chol esterol level, Desirable <200 mg/dLBorderline high cholesterol 200-239 mg/dLHigh cholesterol >=240 mg/dLRecommendations of the NCEP Adult Treatment Panel for thefollowing risk-cutoff thresholds for the [place] Americanpulation. Performed By: #### L 500.4100 ####[facility] [address] [place], [address] Cholesterol in HDL [Mass/Vol] 35 mg/dL Low [facility] Comment on above: Result Comment: Lig[place] onal Cholesterol Education Program (NCEP) guidelines:<40 mg/dL: Low HDL-cholesterol (major risk factor for CHD)>= 60 mg/dL: High HDL-cholesterol (negative risk factor forCHD)HDL-cholesterol is affected by a number of factors, e.g.smoking, exercise, hormones, sex and age. Performed By: #### L 500.4100 ####[facility] [address] [place], [place], [phone] Cholesterol in LDL [Mass/Vol] 39 mg/dL Normal [facility] Comment on above: Result Comment: Bord srmgvo=304-336 mg/dL Higher Nwam=909 mg/dL or greater Performed By: #### L 500.4100 ####[facility] [address] [place], [address]([phone]) Cholesterol in VLDL [Mass/Vol] 25 mg/dL Normal 5-40 [facility] Comment on above: Performed By: #### L 500.4100 ####[facility] [address] [place], [address]([phone]) Triglyceride [Mass/Vol] 126 mg/dL Normal [facility] Comment on above: Result Comment: The drugs N-Acetylcysteine and Metamizole may falselydepress this assay.Normal range: <150 mg/dLBorderline High: 150-199 mg/dLHigh: 200-499 mg/dLVery High: >500 mg/dL Performed By: #### L 500.4100 ####[facility] [address] [place], [address](019) Screening total cholesterol/ high density lipoprotein (HDL) cholesterol ratioOrdered By: Phong Solomon on 03-13-2025 Cholesterol.total/Chol esterol in HDL [Mass ratio] 2.85 {ratio} [facility] Serum or plasma cholesterol in HDL measurement (mass/volume)Ordered By: Phong Solomon on 03-13-2025 Cholesterol in HDL [Mass/Vol] 35 mg/dL Low >40 [facility] Comment on above: National Cholesterol Education Program (NCEP) guidelines:<40 mg/dL: Low HDL-cholesterol (major risk factor for CHD)>= 60 mg/dL: High HDL-cholesterol (negative risk factor for CHD)HDL-cholesterol is affected by a number of factors, e.g. smoking, exercise, hormones, sex and age. Serum or plasma cholesterol measurement (mass/volume)Ordered By: Phong Solomon on 03-13-2025 Cholesterol [Mass/Vol] 99 mg/dL <201 [facility] Comment on above: Cholesterol level, D esirable <200 mg/dLBorderline high cholesterol 200-239 mg/dLHigh cholesterol >=240 mg/dLRecommendations of the NCEP Adult Treatment Panel for the following risk-cutoff thresholds for the [place] population. Triglycerides measurementOrd ered By: Phong Solomon on 03-13-2025 Triglyceride [Mass/Vol] 126 mg/dL <199 [facility] Comment on above: The drugs N-Acetylcy steine and Metamizole may falsely depress this assay. Normal range: <150 mg/dLBorderline High: 150-199 mg/dLHigh: 200-499 mg/dLVery High: >500 mg/dL Basic Metabolic Profile (BMP )on 03-12-2025 BUN/CRE 33.8 RATIO High 10-20 [facility] Comment on above: Performed By: #### L 500.2500, L100.0100 ####[facility] [address] [place], [address] Calcium [Mass/Vol] 8.9 mg/dL Normal 7.6-11.0 [facility] Comment on above: Performed By: #### L 500.2500, L100.0100 ####[facility] [address] [place], [address] Chloride [Moles/Vol] 110 mmol/L High 98-108 [facility] Comment on above: Performed By: #### L 500.2500, L100.0100 ####[facility] [address] [place], [address] CO2 [Moles/Vol] 19.8 mmol/L Low 21.0-32.0 [facility] Comment on above: Performed By: #### L 500.2500, L100.0100 ####[facility] [address] [place], [address] Creatinine [Mass/Vol] 1.48 mg/dL High 0.70-1.20 [facility] Comment on above: Performed By: #### L 500.2500, L100.0100 ####[facility] [address] [place], [address] ECRCL 34.76 ml/min Low 50-250 [facility] Comment on above: Performed By: #### L 500.2500, L100.0100 ####[facility] [address] [place], [address] GAP 12 Normal 5-15 [facility] Comment on above: Performed By: #### L 500.2500, L100.0100 ####[facility] [address] [place], [address] GFR/1.73 sq M.predicted among non-blacks MDRD (S/P/Bld) [Vol rate/Area] 37 mL/min/{1.73_m2} Low >60 [facility] Comment on above: Result Comment: mL/m in/1.73m2 CKD-EPI Creatinine Equation (2020) Performed By: #### L 500.2500, L100.0100 ####[facility] [address] [place], [address] Glucose [Mass/Vol] 137 mg/dL High 70-99 [facility] Comment on above: Performed By: #### L 500.2500, L100.0100 ####[facility] [address] [place], [address] Potassium [Moles/Vol] 4.6 mmol/L Normal 3.3-5.1 [facility] Comment on above: Performed By: #### L 500.2500, L100.0100 ####[facility] [address] [place], [address] Sodium [Moles/Vol] 141 mmol/L Normal 133-145 [facility] Comment on above: Performed By: #### L 500.2500, L100.0100 ####[facility] [address] [place], [address] Urea nitrogen [Mass/Vol] 50 mg/dL High 4-19 [facility] Comment on above: Performed By: #### L 500.2500, L100.0100 ####[facility] [address] [place], [address] BUN Normal 4-19 [facility] Comment on above: Result Comment: Canc elled via OM: Order cancelled - Patient discharged Performed By: #### L 100.0100, L500.2500 ####[facility] [address] [place], [address] BUN/CRE Normal 10-20 [facility] Comment on above: Result Comment: Canc elled via OM: Order cancelled - Patient discharged Performed By: #### L 100.0100, L500.2500 ####[facility] [address] [place], [address] Calcium Normal 7.6-11.0 [facility] Comment on above: Result Comment: Canc elled via OM: Order cancelled - Patient discharged Performed By: #### L 100.0100, L500.2500 ####[facility] [address] [place], [address] CL Normal 98-108 [facility] Comment on above: Result Comment: Canc elled via OM: Order cancelled - Patient discharged Performed By: #### L 100.0100, L500.2500 ####[facility] [address] [place], [address] CO2 Normal 21.0-32.0 [facility] Comment on above: Result Comment: Canc elled via OM: Order cancelled - Patient discharged Performed By: #### L 100.0100, L500.2500 ####[facility] [address] [place], [address] CREAT,SERUM Normal 0.70-1.20 [facility] Comment on above: Result Comment: Canc elled via OM: Order cancelled - Patient discharged Performed By: #### L 100.0100, L500.2500 ####[facility] [address] [place], [address] eGFR Normal >60 [facility] Comment on above: Result Comment: Canc elled via OM: Order cancelled - Patient discharged Performed By: #### L 100.0100, L500.2500 ####[facility] [address] [place], [address] GAP Normal 5-15 [facility] Comment on above: Result Comment: Canc elled via OM: Order cancelled - Patient discharged Performed By: #### L 100.0100, L500.2500 ####[facility] [address] [place], [address] GLU Normal 70-99 [facility] Comment on above: Result Comment: Canc elled via OM: Order cancelled - Patient discharged Performed By: #### L 100.0100, L500.2500 ####[facility] [address] [place], [address] Potassium Normal 3.3-5.1 [facility] Comment on above: Result Comment: Canc elled via OM: Order cancelled - Patient discharged Performed By: #### L 100.0100, L500.2500 ####[facility] [address] [place], [address] Basic Metabolic Profile (BMP) Normal 133-145 [facility] Comment on above: Result Comment: Canc elled via OM: Order cancelled - Patient discharged Performed By: #### L 100.0100, L500.2500 ####[facility] [address] [place], [address] Bedside Glucoseon 03-12-2025 FINGERSTICK GLU 220 mg/dL High 74-106 [facility] Comment on above: Result Comment: JEREMIAS GEMENT OF PATIENT CARE PER NURSING PROTOCOL Performed By: #### L 501.080 ####[facility] [address] [place], [address] FINGERSTICK GLU 276 mg/dL High 74-106 [facility] Comment on above: Result Comment: JEREMIAS GEMENT OF PATIENT CARE PER NURSING PROTOCOL Performed By: #### L 501.080 ####[facility] [address] [place], [address] FINGERSTICK GLU 315 mg/dL High 74-106 [facility] Comment on above: Result Comment: JEREMIAS GEMENT OF PATIENT CARE PER NURSING PROTOCOL Performed By: #### L 501.080 ####[facility] [address] [place], [address] FINGERSTICK GLU 129 mg/dL High 74-106 [facility] Comment on above: Result Comment: JEREMIAS GEMENT OF PATIENT CARE PER NURSING PROTOCOL Performed By: #### L 501.080 ####[facility] [address] [place], [address] CBC W/Diff, Automatedon 04- Absolute Lymph 1.65 X10 3/uL Normal 0.83-4.51 [facility] Comment on above: Performed By: #### L 500.2500, L100.0100 ####[facility] [address] [place], [address] Absolute Neut 6.7 X10 3/uL Normal 2.0-7.7 [facility] Comment on above: Performed By: #### L 500.2500, L100.0100 ####[facility] [address] [place], [address] Basophils/100 WBC (Bld) 0.7 % Normal 0-1 [facility] Comment on above: Performed By: #### L 500.2500, L100.0100 ####[facility] [address] [place], [address] Eosinophils/100 WBC (Bld) 2.9 % Normal 0-5 [facility] Comment on above: Performed By: #### L 500.2500, L100.0100 ####[facility] [address] [place], [address] Erythrocyte distribution width (RBC) [Ratio] 15.8 % High 11.6-14.6 [facility] Comment on above: Performed By: #### L 500.2500, L100.0100 ####[facility] [address] [place], [address] Hematocrit (Bld) [Volume fraction] 29.0 % Low 37-47 [facility] Comment on above: Performed By: #### L 500.2500, L100.0100 ####[facility] [address] [place], [address] Hemoglobin (Bld) [Mass/Vol] 9.0 g/dL Low 12.0-15.0 [facility] Comment on above: Performed By: #### L 500.2500, L100.0100 ####[facility] [address] [place], [address] IG% 1.000 High 0.0-0.9 [facility] Comment on above: Result Comment: IG% - Immature Granulocytes (promyelocytes, myelocytes andmetamyelocytes) > 1% indicates that a LEFT SHIFT is Present. Performed By: #### L 500.2500, L100.0100 ####[facility] [address] [place], [address] Lymphocytes/100 WBC (Bld) 16.9 % Low 19-41 [facility] Comment on above: Performed By: #### L 500.2500, L100.0100 ####[facility] [address] [place], [address] MCH (RBC) [Entitic mass] 28.7 pg Normal 27.0-32.0 [facility] Comment on above: Performed By: #### L 500.2500, L100.0100 ####[facility] [address] [place], [address] MCHC (RBC) [Mass/Vol] 31.0 g/dL Low 32-36 [facility] Comment on above: Performed By: #### L 500.2500, L100.0100 ####[facility] [address] [place], [address] MCV (RBC) [Entitic vol] 92.4 fL Normal 81-99 [facility] Comment on above: Performed By: #### L 500.2500, L100.0100 ####[facility] [address] [place], [address] Monocytes/100 WBC (Bld) 10.2 % High 0-10 [facility] Comment on above: Performed By: #### L 500.2500, L100.0100 ####[facility] [address] [place], [address] Neutrophils/100 WBC (Bld) 68.3 % Normal 47-70 [facility] Comment on above: Performed By: #### L 500.2500, L100.0100 ####[facility] [address] [place], [address] Nucleated RBC (Bld) [#/Vol] 0 10*3/uL Normal 0-5 [facility] Comment on above: Performed By: #### L 500.2500, L100.0100 ####[facility] [address] [place], [address] Platelet mean volume (Bld) [Entitic vol] 11.8 fL Normal 6.2-12.0 [facility] Comment on above: Performed By: #### L 500.2500, L100.0100 ####[facility] [address] [place], [address] Platelets (Bld) [#/Vol] 175 10*3/uL Normal 150-450 [facility] Comment on above: Performed By: #### L 500.2500, L100.0100 ####[facility] [address] [place], [address] RBC (Bld) [#/Vol] 3.14 10*6/uL Low 4.2-5.4 [facility] Comment on above: Performed By: #### L 500.2500, L100.0100 ####[facility] [address] [place], [address] RDW SD 51.3 fl High 35.1-43.9 [facility] Comment on above: Performed By: #### L 500.2500, L100.0100 ####[facility] [address] [place], [address] WBC (Bld) [#/Vol] 9.8 10*3/uL Normal 4.4-11.0 [facility] Comment on above: Performed By: #### L 500.2500, L100.0100 ####[facility] [address] [place], [address] Absolute Neut Normal 2.0-7.7 [facility] Comment on above: Result Comment: Canc elled via OM: Order cancelled - Patient discharged Performed By: #### L 100.0100, L500.2500 ####[facility] [address] [place], [address] HCT Normal 37-47 [facility] Comment on above: Result Comment: Canc elled via OM: Order cancelled - Patient discharged Performed By: #### L 100.0100, L500.2500 ####[facility] [address] [place], [address] HGB Normal 12.0-15.0 [facility] Comment on above: Result Comment: Canc elled via OM: Order cancelled - Patient discharged Performed By: #### L 100.0100, L500.2500 ####[facility] [address] [place], [address] MCH Normal 27.0-32.0 [facility] Comment on above: Result Comment: Canc elled via OM: Order cancelled - Patient discharged Performed By: #### L 100.0100, L500.2500 ####[facility] [address] [place], [address] MCHC Normal 32-36 [facility] Comment on above: Result Comment: Canc elled via OM: Order cancelled - Patient discharged Performed By: #### L 100.0100, L500.2500 ####[facility] [address] [place], [address] MCV Normal 81-99 [facility] Comment on above: Result Comment: Canc elled via OM: Order cancelled - Patient discharged Performed By: #### L 100.0100, L500.2500 ####[facility] [address] [place], [address] NEUT% Normal 47-70 [facility] Comment on above: Result Comment: Canc elled via OM: Order cancelled - Patient discharged Performed By: #### L 100.0100, L500.2500 ####[facility] [address] [place], [address] PLT Normal 150-450 [facility] Comment on above: Result Comment: Canc elled via OM: Order cancelled - Patient discharged Performed By: #### L 100.0100, L500.2500 ####[facility] [address] [place], [address] RBC Normal 4.2-5.4 [facility] Comment on above: Result Comment: Canc elled via OM: Order cancelled - Patient discharged Performed By: #### L 100.0100, L500.2500 ####[facility] [address] [place], [address] RDW CV Normal 11.6-14.6 [facility] Comment on above: Result Comment: Canc elled via OM: Order cancelled - Patient discharged Performed By: #### L 100.0100, L500.2500 ####[facility] [address] [place], [address] RDW SD Normal 35.1-43.9 [facility] Comment on above: Result Comment: Canc elled via OM: Order cancelled - Patient discharged Performed By: #### L 100.0100, L500.2500 ####[facility] [address] [place], [address] WBC Normal 4.4-11.0 [facility] Comment on above: Result Comment: Canc elled via OM: Order cancelled - Patient discharged Performed By: #### L 100.0100, L500.2500 ####[facility] [address] [place], [address] Absolute lymphocyte countOrd ered By: Broderick Dempsey on 03-11-2025 Lymphocytes Auto (Unsp spec) [#/Vol] 1.37 10*3/uL 0.83-4.51 [facility] Absolute neutrophil countOrd ered By: Broderick Dempsey on 03-11-2025 Neutrophils (Bld) [#/Vol] 5.4 10*3/uL 2.0-7.7 [facility] Anion gap in Serum or Plasma Ordered By: Broderick Dempsey on 03-11-2025 Anion gap [Moles/Vol] 10 mmol/L 5-15 [facility] Automated lymphocyte count a s percentage of total leukocytesOrdered By: Broderick Dempsey on 03-11-2025 Lymphocytes/100 WBC Auto (Unsp spec) 17.0 % Low 19-41 [facility] BUN/creatinine ratioOrdered By: Broderick Dempsey on 03-11-2025 Urea nitrogen/Creatinine [Mass ratio] 37.8 mg/mg High 10-20 [facility] Basic Metabolic Profile (BMP )on 03-11-2025 BUN/CRE 37.8 RATIO High 10-20 [facility] Comment on above: Performed By: #### L 500.2500, L100.0100 ####[facility] [address] [place], [address] Calcium [Mass/Vol] 8.4 mg/dL Normal 7.6-11.0 [facility] Comment on above: Performed By: #### L 500.2500, L100.0100 ####[facility] [address] [place], [address] Chloride [Moles/Vol] 111 mmol/L High 98-108 [facility] Comment on above: Performed By: #### L 500.2500, L100.0100 ####[facility] [address] [place], [address] CO2 [Moles/Vol] 19.8 mmol/L Low 21.0-32.0 [facility] Comment on above: Performed By: #### L 500.2500, L100.0100 ####[facility] [address] [place], [address] Creatinine [Mass/Vol] 1.41 mg/dL High 0.70-1.20 [facility] Comment on above: Performed By: #### L 500.2500, L100.0100 ####[facility] [address] [place], [address] ECRCL 36.83 ml/min Low 50-250 [facility] Comment on above: Performed By: #### L 500.2500, L100.0100 ####[facility] [address] [place], [address] GAP 10 Normal 5-15 [facility] Comment on above: Performed By: #### L 500.2500, L100.0100 ####[facility] [address] [place], [address] GFR/1.73 sq M.predicted among non-blacks MDRD (S/P/Bld) [Vol rate/Area] 39 mL/min/{1.73_m2} Low >60 [facility] Comment on above: Result Comment: mL/m in/1.73m2 CKD-EPI Creatinine Equation (2020) Performed By: #### L 500.2500, L100.0100 ####[facility] [address] [place], [address] Glucose [Mass/Vol] 91 mg/dL Normal 70-99 [facility] Comment on above: Performed By: #### L 500.2500, L100.0100 ####[facility] [address] [place], [address] Potassium [Moles/Vol] 4.2 mmol/L Normal 3.3-5.1 [facility] Comment on above: Performed By: #### L 500.2500, L100.0100 ####[facility] [address] [place], [address] Sodium [Moles/Vol] 141 mmol/L Normal 133-145 [facility] Comment on above: Performed By: #### L 500.2500, L100.0100 ####[facility] [address] [place], [address] Urea nitrogen [Mass/Vol] 53 mg/dL High 4-19 [facility] Comment on above: Performed By: #### L 500.2500, L100.0100 ####[facility] [address] [place], [address] Basophil percentageOrdered B y: Broderick Dempsey on 03-11-2025 Basophils/100 WBC (Bld) 0.7 % 0-1 [facility] Bedside Glucoseon 03-11-2025 FINGERSTICK GLU 204 mg/dL High 74-106 [facility] Comment on above: Result Comment: JEREMIAS GEMENT OF PATIENT CARE PER NURSING PROTOCOL Performed By: #### L 501.080 ####[facility] [address] [place], [address] FINGERSTICK GLU 164 mg/dL High 74-106 [facility] Comment on above: Result Comment: JEREMIAS GEMENT OF PATIENT CARE PER NURSING PROTOCOL Performed By: #### L 501.080 ####[facility] [address] [place], [address] FINGERSTICK GLU 282 mg/dL High 74-106 [facility] Comment on above: Result Comment: JEREMIAS GEMENT OF PATIENT CARE PER NURSING PROTOCOL Performed By: #### L 501.080 ####[facility] [address] [place], [address] FINGERSTICK GLU 82 mg/dL Normal 74-106 [facility] Comment on above: Result Comment: JEREMIAS GEMENT OF PATIENT CARE PER NURSING PROTOCOL Performed By: #### L 501.080 ####[facility] [address] [place], [address] FINGERSTICK GLU 142 mg/dL High 74-106 [facility] Comment on above: Result Comment: JEREMIAS GEMENT OF PATIENT CARE PER NURSING PROTOCOL Performed By: #### L 501.080 ####[facility] [address] [place], [address] CBC W/Diff, Automatedon 02-18 Absolute Lymph 1.37 X10 3/uL Normal 0.83-4.51 [facility] Comment on above: Performed By: #### L 500.2500, L100.0100 ####[facility] [address] [place], [address] Absolute Neut 5.4 X10 3/uL Normal 2.0-7.7 [facility] Comment on above: Performed By: #### L 500.2500, L100.0100 ####[facility] [address] [place], [address] Basophils/100 WBC (Bld) 0.7 % Normal 0-1 [facility] Comment on above: Performed By: #### L 500.2500, L100.0100 ####[facility] [address] [place], [address] Eosinophils/100 WBC (Bld) 3.6 % Normal 0-5 [facility] Comment on above: Performed By: #### L 500.2500, L100.0100 ####[facility] [address] [place], [address] Erythrocyte distribution width (RBC) [Ratio] 15.4 % High 11.6-14.6 [facility] Comment on above: Performed By: #### L 500.2500, L100.0100 ####[facility] [address] [place], [address] Hematocrit (Bld) [Volume fraction] 25.3 % Low 37-47 [facility] Comment on above: Performed By: #### L 500.2500, L100.0100 ####[facility] [address] [place], [address] Hemoglobin (Bld) [Mass/Vol] 8.0 g/dL Low 12.0-15.0 [facility] Comment on above: Performed By: #### L 500.2500, L100.0100 ####[facility] [address] [place], [address] IG% 0.900 Normal 0.0-0.9 [facility] Comment on above: Result Comment: IG% - Immature Granulocytes (promyelocytes, myelocytes andmetamyelocytes) > 1% indicates that a LEFT SHIFT is Present. Performed By: #### L 500.2500, L100.0100 ####[facility] [address] [place], [address] Lymphocytes/100 WBC (Bld) 17.0 % Low 19-41 [facility] Comment on above: Performed By: #### L 500.2500, L100.0100 ####[facility] [address] [place], [address] MCH (RBC) [Entitic mass] 28.8 pg Normal 27.0-32.0 [facility] Comment on above: Performed By: #### L 500.2500, L100.0100 ####[facility] [address] [place], [address] MCHC (RBC) [Mass/Vol] 31.6 g/dL Low 32-36 [facility] Comment on above: Performed By: #### L 500.2500, L100.0100 ####[facility] [address] [place], [address] MCV (RBC) [Entitic vol] 91.0 fL Normal 81-99 [facility] Comment on above: Performed By: #### L 500.2500, L100.0100 ####[facility] [address] [place], [address] Monocytes/100 WBC (Bld) 10.8 % High 0-10 [facility] Comment on above: Performed By: #### L 500.2500, L100.0100 ####[facility] [address] [place], [address] Neutrophils/100 WBC (Bld) 67.0 % Normal 47-70 [facility] Comment on above: Performed By: #### L 500.2500, L100.0100 ####[facility] [address] [place], [address] Nucleated RBC (Bld) [#/Vol] 0 10*3/uL Normal 0-5 [facility] Comment on above: Performed By: #### L 500.2500, L100.0100 ####[facility] [address] [place], [address] Platelet mean volume (Bld) [Entitic vol] 11.7 fL Normal 6.2-12.0 [facility] Comment on above: Performed By: #### L 500.2500, L100.0100 ####[facility] [address] [place], [address] Platelets (Bld) [#/Vol] 150 10*3/uL Normal 150-450 [facility] Comment on above: Performed By: #### L 500.2500, L100.0100 ####[facility] [address] [place], [address] RBC (Bld) [#/Vol] 2.78 10*6/uL Low 4.2-5.4 [facility] Comment on above: Performed By: #### L 500.2500, L100.0100 ####[facility] [address] [place], [address] RDW SD 49.5 fl High 35.1-43.9 [facility] Comment on above: Performed By: #### L 500.2500, L100.0100 ####[facility] [address] [place], [address] WBC (Bld) [#/Vol] 8.1 10*3/uL Normal 4.4-11.0 [facility] Comment on above: Performed By: #### L 500.2500, L100.0100 ####[facility] [address] [place], [address] Carbon dioxide, total [Moles /volume] in Central venous bloodOrdered By: Broderick Dempsey on 03-11-2025 CO2 [Moles/Vol] 19.8 mmol/L Low 21.0-32.0 [facility] Chloride assayOrdered By: Solange Dempsey on 03-11-2025 Chloride [Moles/Vol] 111 mmol/L High 98-108 [facility] Consultation - Infectious Dx on 03-11-2025 Consultation - Infectious Dx Normal [facility] Eosinophil percentageOrdered By: Broderick Dempsey on 03-11-2025 Eosinophils/100 WBC (Bld) 3.6 % 0-5 [facility] Erythrocyte distribution wid th ratioOrdered By: Broderick Dempsey on 03-11-2025 Erythrocyte distribution width (RBC) [Ratio] 15.4 % High 11.6-14.6 [facility] Erythrocyte distribution wid th standard deviationOrdered By: Broderick Dempsey on 03-11-2025 Erythrocyte distribution width (RBC) [Ratio] 49.5 fl High 35.1-43.9 [facility] Glomerular filtration rate ( GFR) estimation/1.73 sq m using serum, plasma, or whole bOrdered By: Broderick Dempsey on 03-11-2025 GFR/1.73 sq M.predicted among non-blacks MDRD (S/P/Bld) [Vol rate/Area] 39 mL/min/{1.73_m2} Low >60 [facility] Comment on above: mL/min/1.73m2 CKD-EP I Creatinine Equation (2020) Glucose measurement at bedsi deOrdered By: Broderick Dempsey on 03-11-2025 Glucose [Mass/Vol] 164 mg/dL High 74-106 [facility] Comment on above: MANAGEMENT OF PATIEN T CARE PER NURSING PROTOCOL Hematocrit Auto (Bld) [Volum e fraction]Ordered By: Broderick Dempsey on 03-11-2025 Hematocrit (Bld) [Volume fraction] 25.3 % Low 37-47 [facility] Hemoglobin measurementOrdere d By: Broderick Dempsey on 03-11-2025 Hemoglobin (Bld) [Mass/Vol] 8.0 g/dL Low 12.0-15.0 [facility] Immature granulocytes/100 WB C Auto (Bld)Ordered By: Broderick Dempsey on 03-11-2025 Immature granulocytes/100 WBC (Bld) 0.900 % 0.0-0.9 [facility] Comment on above: IG% - Immature Granu locytes (promyelocytes, myelocytes and metamyelocytes) > 1% indicates that a LEFT SHIFT is Present. MCV (mean corpuscular volume ) determinationOrdered By: Broderick Dempsey on 03-11-2025 MCV (RBC) [Entitic vol] 91.0 fL 81-99 [facility] Mean corpuscular hemoglobin (MCH) determinationOrdered By: Broderick Dempsey on 03-11-2025 MCH (RBC) [Entitic mass] 28.8 pg 27.0-32.0 [facility] Mean corpuscular hemoglobin concentration (MCHC) determinationOrdered By: Broderick Dempsey on 03-11-2025 MCHC (RBC) [Mass/Vol] 31.6 g/dL Low 32-36 [facility] Mean platelet volume determi nationOrdered By: Broderick Dempsey on 03-11-2025 Platelet mean volume (Bld) [Entitic vol] 11.7 fL 6.2-12.0 [facility] Monocyte percentageOrdered B y: Broderick Dempsey on 03-11-2025 Monocytes/100 WBC (Bld) 10.8 % High 0-10 [facility] Neutrophil percentageOrdered By: Broderick Dempsey on 03-11-2025 Neutrophils/100 WBC (Bld) 67.0 % 47-70 [facility] Nucleated red blood cell per centageOrdered By: Broderick Dempsey on 03-11-2025 Nucleated RBC/100 WBC (Bld) [Ratio] 0 % 0-5 [facility] Platelet countOrdered By: Solange Dempsey on 03-11-2025 Platelets (Bld) [#/Vol] 150 10*3/uL 150-450 [facility] Potassium measurement (mass/ volume)Ordered By: Broderick Dempsey on 03-11-2025 Potassium (Unsp spec) [Mass/Vol] 4.2 mmol/L 3.3-5.1 [facility] RBC Auto (Bld) [#/Vol]Ordere d By: Broderick Dempsey on 03-11-2025 RBC (Bld) [#/Vol] 2.78 10*6/uL Low 4.2-5.4 [facility] Serum creatinine measurement (mass/volume)Ordered By: Broderick Dempsey on 03-11-2025 Creatinine [Mass/Vol] 1.41 mg/dL High 0.70-1.20 [facility] Serum glucose measurement (m ass/volume)Ordered By: Broderick Dempsey on 03-11-2025 Glucose [Mass/Vol] 91 mg/dL 70-99 [facility] Serum or plasma calcium natalia urement (mass/volume)Ordered By: Broderick Dempsey on 03-11-2025 Calcium [Mass/Vol] 8.4 mg/dL 7.6-11.0 [facility] Serum or plasma urea nitroge n measurement (mass/volume)Ordered By: Broderick Dempsey on 03-11-2025 Urea nitrogen [Mass/Vol] 53 mg/dL High 4-19 [facility] Sodium levelOrdered By: Tevin Dempsey on 03-11-2025 Sodium [Moles/Vol] 141 mmol/L 133-145 [facility] White blood cell (WBC) count Ordered By: Broderick Dempsey on 03-11-2025 WBC (Bld) [#/Vol] 8.1 10*3/uL 4.4-11.0 [facility] Basic Metabolic Profile (BMP )on 03-10-2025 BUN/CRE 44.3 RATIO High 10-20 [facility] Comment on above: Performed By: #### L 100.0100, L500.2500 ####[facility] [address] [place], [address] Calcium [Mass/Vol] 8.4 mg/dL Normal 7.6-11.0 [facility] Comment on above: Performed By: #### L 100.0100, L500.2500 ####[facility] [address] [place], [address] Chloride [Moles/Vol] 113 mmol/L High 98-108 [facility] Comment on above: Performed By: #### L 100.0100, L500.2500 ####[facility] [address] [place], [address] CO2 [Moles/Vol] 19.1 mmol/L Low 21.0-32.0 [facility] Comment on above: Performed By: #### L 100.0100, L500.2500 ####[facility] [address] [place], [address] Creatinine [Mass/Vol] 1.47 mg/dL High 0.70-1.20 [facility] Comment on above: Performed By: #### L 100.0100, L500.2500 ####[facility] [address] [place], [address] ECRCL 35.18 ml/min Low 50-250 [facility] Comment on above: Performed By: #### L 100.0100, L500.2500 ####[facility] [address] [place], [address] GAP 10 Normal 5-15 [facility] Comment on above: Performed By: #### L 100.0100, L500.2500 ####[facility] [address] [place], [address] GFR/1.73 sq M.predicted among non-blacks MDRD (S/P/Bld) [Vol rate/Area] 37 mL/min/{1.73_m2} Low >60 [facility] Comment on above: Result Comment: mL/m in/1.73m2 CKD-EPI Creatinine Equation (2020) Performed By: #### L 100.0100, L500.2500 ####[facility] [address] [place], [address] Glucose [Mass/Vol] 81 mg/dL Normal 70-99 [facility] Comment on above: Performed By: #### L 100.0100, L500.2500 ####[facility] [address] [place], [address] Potassium [Moles/Vol] 4.2 mmol/L Normal 3.3-5.1 [facility] Comment on above: Performed By: #### L 100.0100, L500.2500 ####[facility] [address] [place], [address] Sodium [Moles/Vol] 143 mmol/L Normal 133-145 [facility] Comment on above: Performed By: #### L 100.0100, L500.2500 ####[facility] [address] [place], [address] Urea nitrogen [Mass/Vol] 65 mg/dL High 4-19 [facility] Comment on above: Performed By: #### L 100.0100, L500.2500 ####[facility] [address] [place], [address] Bedside Glucoseon 03-10-2025 FINGERSTICK GLU 186 mg/dL High 74-106 [facility] Comment on above: Result Comment: JEREMIAS GEMENT OF PATIENT CARE PER NURSING PROTOCOL Performed By: #### L 501.080 ####[facility] [address] [place], [address] FINGERSTICK GLU 308 mg/dL High 74-106 [facility] Comment on above: Result Comment: JEREMIAS GEMENT OF PATIENT CARE PER NURSING PROTOCOL Performed By: #### L 501.080 ####[facility] [address] [place], [address] FINGERSTICK GLU 84 mg/dL Normal 74-106 [facility] Comment on above: Result Comment: JEREMIAS GEMENT OF PATIENT CARE PER NURSING PROTOCOL Performed By: #### L 501.080 ####[facility] [address] [place], [address] CBC W/Diff, Automatedon 04- Absolute Lymph 1.76 X10 3/uL Normal 0.83-4.51 [facility] Comment on above: Performed By: #### L 100.0100, L500.2500 ####[facility] [address] [place], [address] Absolute Neut 4.7 X10 3/uL Normal 2.0-7.7 [facility] Comment on above: Performed By: #### L 100.0100, L500.2500 ####[facility] [address] [place], [address] Basophils/100 WBC (Bld) 0.6 % Normal 0-1 [facility] Comment on above: Performed By: #### L 100.0100, L500.2500 ####[facility] [address] [place], [address] Eosinophils/100 WBC (Bld) 3.0 % Normal 0-5 [facility] Comment on above: Performed By: #### L 100.0100, L500.2500 ####[facility] [address] [place], [address] Erythrocyte distribution width (RBC) [Ratio] 15.1 % High 11.6-14.6 [facility] Comment on above: Performed By: #### L 100.0100, L500.2500 ####[facility] [address] [place], [address] Hematocrit (Bld) [Volume fraction] 25.3 % Low 37-47 [facility] Comment on above: Performed By: #### L 100.0100, L500.2500 ####[facility] [address] [place], [address] Hemoglobin (Bld) [Mass/Vol] 8.1 g/dL Low 12.0-15.0 [facility] Comment on above: Performed By: #### L 100.0100, L500.2500 ####[facility] [address] [place], [address] IG% 1.300 High 0.0-0.9 [facility] Comment on above: Result Comment: IG% - Immature Granulocytes (promyelocytes, myelocytes andmetamyelocytes) > 1% indicates that a LEFT SHIFT is Present. Performed By: #### L 100.0100, L500.2500 ####[facility] [address] [place], [address] Lymphocytes/100 WBC (Bld) 22.3 % Normal 19-41 [facility] Comment on above: Performed By: #### L 100.0100, L500.2500 ####[facility] [address] [place], [address] MCH (RBC) [Entitic mass] 28.7 pg Normal 27.0-32.0 [facility] Comment on above: Performed By: #### L 100.0100, L500.2500 ####[facility] [address] [place], [address] MCHC (RBC) [Mass/Vol] 32.0 g/dL Normal 32-36 [facility] Comment on above: Performed By: #### L 100.0100, L500.2500 ####[facility] [address] [place], [address] MCV (RBC) [Entitic vol] 89.7 fL Normal 81-99 [facility] Comment on above: Performed By: #### L 100.0100, L500.2500 ####[facility] [address] [place], [address] Monocytes/100 WBC (Bld) 12.9 % High 0-10 [facility] Comment on above: Performed By: #### L 100.0100, L500.2500 ####[facility] [address] [place], [address] Neutrophils/100 WBC (Bld) 59.9 % Normal 47-70 [facility] Comment on above: Performed By: #### L 100.0100, L500.2500 ####[facility] [address] [place], [address] Nucleated RBC (Bld) [#/Vol] 0 10*3/uL Normal 0-5 [facility] Comment on above: Performed By: #### L 100.0100, L500.2500 ####[facility] [address] [place], [address] Platelet mean volume (Bld) [Entitic vol] 11.4 fL Normal 6.2-12.0 [facility] Comment on above: Performed By: #### L 100.0100, L500.2500 ####[facility] [address] [place], [address] Platelets (Bld) [#/Vol] 156 10*3/uL Normal 150-450 [facility] Comment on above: Performed By: #### L 100.0100, L500.2500 ####[facility] [address] [place], [address] RBC (Bld) [#/Vol] 2.82 10*6/uL Low 4.2-5.4 [facility] Comment on above: Performed By: #### L 100.0100, L500.2500 ####[facility] [address] [place], [address] RDW SD 46.9 fl High 35.1-43.9 [facility] Comment on above: Performed By: #### L 100.0100, L500.2500 ####[facility] [address] [place], [address] WBC (Bld) [#/Vol] 7.9 10*3/uL Normal 4.4-11.0 [facility] Comment on above: Performed By: #### L 100.0100, L500.2500 ####[facility] [address] [place], [address] Protein+Creatinine Ratio,Uri neon 03-10-2025 PROT:CRE RATIO 226 mg/g CRE High 0-200 [facility] Comment on above: Performed By: #### L 501.0900 ####[facility] [address] [place], [address] Protein (U) [Mass/Vol] 8.5 mg/dL Normal 0.0-12.0 [facility] Comment on above: Performed By: #### L 501.0900 ####[facility] [address] [place], [address] UR CREAT 37.70 mg/dL Normal 28.00-217.0 0 [facility] Comment on above: Performed By: #### L 501.0900 ####[facility] [address] [place], [address] Basic Metabolic Profile (BMP )on 03-09-2025 BUN/CRE 51.7 RATIO High 10-20 [facility] Comment on above: Performed By: #### L 501.3620, L500.2500, L100.0100 ####[facility] [address] [place], [address] Calcium [Mass/Vol] 8.1 mg/dL Normal 7.6-11.0 [facility] Comment on above: Performed By: #### L 501.3620, L500.2500, L100.0100 ####[facility] [address] [place], [address] Chloride [Moles/Vol] 112 mmol/L High 98-108 [facility] Comment on above: Performed By: #### L 501.3620, L500.2500, L100.0100 ####[facility] [address] [place], [address] CO2 [Moles/Vol] 19.1 mmol/L Low 21.0-32.0 [facility] Comment on above: Performed By: #### L 501.3620, L500.2500, L100.0100 ####[facility] [address] [place], [address] Creatinine [Mass/Vol] 1.63 mg/dL High 0.70-1.20 [facility] Comment on above: Performed By: #### L 501.3620, L500.2500, L100.0100 ####[facility] [address] [place], [address] ECRCL 31.75 ml/min Low 50-250 [facility] Comment on above: Performed By: #### L 501.3620, L500.2500, L100.0100 ####[facility] [address] [place], [address] GAP 10 Normal 5-15 [facility] Comment on above: Performed By: #### L 501.3620, L500.2500, L100.0100 ####[facility] [address] [place], [address] GFR/1.73 sq M.predicted among non-blacks MDRD (S/P/Bld) [Vol rate/Area] 33 mL/min/{1.73_m2} Low >60 [facility] Comment on above: Result Comment: mL/m in/1.73m2 CKD-EPI Creatinine Equation (2020) Performed By: #### L 501.3620, L500.2500, L100.0100 ####[facility] [address] [place], [address] Glucose [Mass/Vol] 120 mg/dL High 70-99 [facility] Comment on above: Performed By: #### L 501.3620, L500.2500, L100.0100 ####[facility] [address] [place], [address] Potassium [Moles/Vol] 3.8 mmol/L Normal 3.3-5.1 [facility] Comment on above: Performed By: #### L 501.3620, L500.2500, L100.0100 ####[facility] [address] [place], [address] Sodium [Moles/Vol] 141 mmol/L Normal 133-145 [facility] Comment on above: Performed By: #### L 501.3620, L500.2500, L100.0100 ####[facility] [address] [place], [address] Urea nitrogen [Mass/Vol] 84 mg/dL High 4-19 [facility] Comment on above: Performed By: #### L 501.3620, L500.2500, L100.0100 ####[facility] [address] [place], [address] Bedside Glucoseon 03-09-2025 FINGERSTICK GLU 220 mg/dL High 74-106 [facility] Comment on above: Result Comment: JEREMIAS GEMENT OF PATIENT CARE PER NURSING PROTOCOL Performed By: #### L 501.080 ####[facility] [address] [place], [address] FINGERSTICK GLU 193 mg/dL High 74-106 [facility] Comment on above: Result Comment: JEREMIAS GEMENT OF PATIENT CARE PER NURSING PROTOCOL Performed By: #### L 501.080 ####[facility] [address] [place], [address] FINGERSTICK GLU 164 mg/dL High 74-106 [facility] Comment on above: Result Comment: JEREMIAS GEMENT OF PATIENT CARE PER NURSING PROTOCOL Performed By: #### L 501.080 ####[facility] [address] [place], [address] CBC W/Diff, Automatedon Absolute Lymph 1.38 X10 3/uL Normal 0.83-4.51 [facility] Comment on above: Performed By: #### L 501.3620, L500.2500, L100.0100 ####[facility] [address] [place], [address] Absolute Neut 6.3 X10 3/uL Normal 2.0-7.7 [facility] Comment on above: Performed By: #### L 501.3620, L500.2500, L100.0100 ####[facility] [address] [place], [address] Basophils/100 WBC (Bld) 0.3 % Normal 0-1 [facility] Comment on above: Performed By: #### L 501.3620, L500.2500, L100.0100 ####[facility] [address] [place], [address] Eosinophils/100 WBC (Bld) 2.3 % Normal 0-5 [facility] Comment on above: Performed By: #### L 501.3620, L500.2500, L100.0100 ####[facility] [address] [place], [address] Erythrocyte distribution width (RBC) [Ratio] 14.7 % High 11.6-14.6 [facility] Comment on above: Performed By: #### L 501.3620, L500.2500, L100.0100 ####[facility] [address] [place], [address] Hematocrit (Bld) [Volume fraction] 23.5 % Low 37-47 [facility] Comment on above: Performed By: #### L 501.3620, L500.2500, L100.0100 ####[facility] [address] [place], [address] Hemoglobin (Bld) [Mass/Vol] 7.6 g/dL Low 12.0-15.0 [facility] Comment on above: Performed By: #### L 501.3620, L500.2500, L100.0100 ####[facility] [address] [place], [address] IG% 1.000 High 0.0-0.9 [facility] Comment on above: Result Comment: IG% - Immature Granulocytes (promyelocytes, myelocytes andmetamyelocytes) > 1% indicates that a LEFT SHIFT is Present. Performed By: #### L 501.3620, L500.2500, L100.0100 ####[facility] [address] [place], [address] Lymphocytes/100 WBC (Bld) 15.8 % Low 19-41 [facility] Comment on above: Performed By: #### L 501.3620, L500.2500, L100.0100 ####[facility] [address] [place], [address] MCH (RBC) [Entitic mass] 29.0 pg Normal 27.0-32.0 [facility] Comment on above: Performed By: #### L 501.3620, L500.2500, L100.0100 ####[facility] [address] [place], [address] MCHC (RBC) [Mass/Vol] 32.3 g/dL Normal 32-36 [facility] Comment on above: Performed By: #### L 501.3620, L500.2500, L100.0100 ####[facility] [address] [place], [address] MCV (RBC) [Entitic vol] 89.7 fL Normal 81-99 [facility] Comment on above: Performed By: #### L 501.3620, L500.2500, L100.0100 ####[facility] [address] [place], [address] Monocytes/100 WBC (Bld) 9.0 % Normal 0-10 [facility] Comment on above: Performed By: #### L 501.3620, L500.2500, L100.0100 ####[facility] [address] [place], [address] Neutrophils/100 WBC (Bld) 71.6 % High 47-70 [facility] Comment on above: Performed By: #### L 501.3620, L500.2500, L100.0100 ####[facility] [address] [place], [address] Nucleated RBC (Bld) [#/Vol] 0 10*3/uL Normal 0-5 [facility] Comment on above: Performed By: #### L 501.3620, L500.2500, L100.0100 ####[facility] [address] [place], [address] Platelet mean volume (Bld) [Entitic vol] 11.7 fL Normal 6.2-12.0 [facility] Comment on above: Performed By: #### L 501.3620, L500.2500, L100.0100 ####[facility] [address] [place], [address] Platelets (Bld) [#/Vol] 164 10*3/uL Normal 150-450 [facility] Comment on above: Performed By: #### L 501.3620, L500.2500, L100.0100 ####[facility] [address] [place], [address] RBC (Bld) [#/Vol] 2.62 10*6/uL Low 4.2-5.4 [facility] Comment on above: Performed By: #### L 501.3620, L500.2500, L100.0100 ####[facility] [address] [place], [address] RDW SD 47.1 fl High 35.1-43.9 [facility] Comment on above: Performed By: #### L 501.3620, L500.2500, L100.0100 ####[facility] [address] [place], [address] WBC (Bld) [#/Vol] 8.8 10*3/uL Normal 4.4-11.0 [facility] Comment on above: Performed By: #### L 501.3620, L500.2500, L100.0100 ####[facility] [address] [place], [address] CPK Total, Creatine Kinaseon 03-09-2025 CPK TOTAL 308 U/L High 24-195 [facility] Comment on above: Performed By: #### L 501.3620, L500.2500, L100.0100 ####[facility] [address] [place], [address] Consultation - Nephrologyon 03-09-2025 Consultation - Nephrology Normal [facility] Consultation - Surgicalon Consultation - Surgical Normal [facility] Folate [Mass/volume] in Seru m or PlasmaOrdered By: Maddie Merchant on 03-09-2025 Folate [Mass/Vol] 15.10 ng/mL 4.60-34.80 [facility] Folates,Serum (Folic Acid)on 03-09-2025 FOLATES,SERUM 15.10 ng/mL Normal 4.60-34.80 [facility] Comment on above: Performed By: #### L 506.0200 ####[facility] [address] [place], [address] Kidney and Bladderon 025 Kidney and Bladder Normal [facility] Random urine creatinine natalia urement (mass/volume)Ordered By: Zarina Alder on 03-09-2025 Creatinine Unsp time (U) [Mass/Vol] 37.70 mg/dL 28.00-217.0 0 [facility] Serum or plasma creatine kin ase activityOrdered By: Broderick Dempsey on 03-09-2025 CK [Catalytic activity/Vol] 308 U/L High 24-195 [facility] Urine Cultureon 03-09-2025 URC Normal [facility] Comment on above: Performed By: #### M 100.2200 ####[facility] [address] [facility] [address] Urine protein measurement (m ass/volume)Ordered By: Zarina Adler on 03-09-2025 Protein (U) [Mass/Vol] 8.5 mg/dL 0.0-12.0 [facility] Urine protein/creatinine mas s ratioOrdered By: Zarina Adler on 03-09-2025 Protein/Creatinine (U) [Mass ratio] 226 mg/g CRE High 0-200 [facility] Bedside Glucoseon 03-08-2025 FINGERSTICK GLU 249 mg/dL High 74-106 [facility] Comment on above: Result Comment: JEREMIAS GEMENT OF PATIENT CARE PER NURSING PROTOCOL Performed By: #### L 501.080 ####[facility] [address] [facility] [address] FINGERSTICK GLU 200 mg/dL High 74-106 [facility] Comment on above: Result Comment: JEREMIAS GEMENT OF PATIENT CARE PER NURSING PROTOCOL Performed By: #### L 501.080 ####[facility] [address] [facility] [address] FINGERSTICK GLU 165 mg/dL High 74-106 [facility] Comment on above: Result Comment: JEREMIAS GEMENT OF PATIENT CARE PER NURSING PROTOCOL Performed By: #### L 501.080 ####[facility] [address] [facility] [address] FINGERSTICK GLU 159 mg/dL High 74-106 [facility] Comment on above: Result Comment: JEREMIAS GEMENT OF PATIENT CARE PER NURSING PROTOCOL Performed By: #### L 501.080 ####[facility] [address] [place], [address] FINGERSTICK GLU 283 mg/dL High 74-106 [facility] Comment on above: Result Comment: JEREMIAS PADILLA OF PATIENT CARE PER NURSING PROTOCOL Performed By: #### L 501.080 ####[facility] [address] [place], [address] Bilirubin, totalOrdered By: Maddie Merchant on 03-08-2025 Bilirubin [Mass/Vol] 0.25 mg/dL 0.00-1.30 [facility] CBC W/Diff, Automatedon 02-18 Absolute Lymph 1.08 X10 3/uL Normal 0.83-4.51 [facility] Comment on above: Performed By: #### L 501.3620, L100.0100, L500.4050, L501.9985, L503.0106, L503.6030, L503.6550 ####[facility] [address] [place], [address] Absolute Neut 7.1 X10 3/uL Normal 2.0-7.7 [facility] Comment on above: Performed By: #### L 501.3620, L100.0100, L500.4050, L501.9985, L503.0106, L503.6030, L503.6550 ####[facility] [address] [place], [address] Basophils/100 WBC (Bld) 0.4 % Normal 0-1 [facility] Comment on above: Performed By: #### L 501.3620, L100.0100, L500.4050, L501.9985, L503.0106, L503.6030, L503.6550 ####[facility] [address] [place], [address] Eosinophils/100 WBC (Bld) 1.6 % Normal 0-5 [facility] Comment on above: Performed By: #### L 501.3620, L100.0100, L500.4050, L501.9985, L503.0106, L503.6030, L503.6550 ####[facility] [address] [place], [address] Erythrocyte distribution width (RBC) [Ratio] 14.5 % Normal 11.6-14.6 [facility] Comment on above: Performed By: #### L 501.3620, L100.0100, L500.4050, L501.9985, L503.0106, L503.6030, L503.6550 ####[facility] [address] [place], [address] Hematocrit (Bld) [Volume fraction] 25.1 % Low 37-47 [facility] Comment on above: Performed By: #### L 501.3620, L100.0100, L500.4050, L501.9985, L503.0106, L503.6030, L503.6550 ####[facility] [address] [place], [address] Hemoglobin (Bld) [Mass/Vol] 7.9 g/dL Low 12.0-15.0 [facility] Comment on above: Performed By: #### L 501.3620, L100.0100, L500.4050, L501.9985, L503.0106, L503.6030, L503.6550 ####[facility] [address] [place], [address] IG% 0.700 Normal 0.0-0.9 [facility] Comment on above: Result Comment: IG% - Immature Granulocytes (promyelocytes, myelocytes andmetamyelocytes) > 1% indicates that a LEFT SHIFT is Present. Performed By: #### L 501.3620, L100.0100, L500.4050, L501.9985, L503.0106, L503.6030, L503.6550 ####[facility] [address] [place], [address] Lymphocytes/100 WBC (Bld) 11.7 % Low 19-41 [facility] Comment on above: Performed By: #### L 501.3620, L100.0100, L500.4050, L501.9985, L503.0106, L503.6030, L503.6550 ####[facility] [address] [place], [address] MCH (RBC) [Entitic mass] 28.2 pg Normal 27.0-32.0 [facility] Comment on above: Performed By: #### L 501.3620, L100.0100, L500.4050, L501.9985, L503.0106, L503.6030, L503.6550 ####[facility] [address] [place], [address] MCHC (RBC) [Mass/Vol] 31.5 g/dL Low 32-36 [facility] Comment on above: Performed By: #### L 501.3620, L100.0100, L500.4050, L501.9985, L503.0106, L503.6030, L503.6550 ####[facility] [address] [place], [address] MCV (RBC) [Entitic vol] 89.6 fL Normal 81-99 [facility] Comment on above: Performed By: #### L 501.3620, L100.0100, L500.4050, L501.9985, L503.0106, L503.6030, L503.6550 ####[facility] [address] [place], [address] Monocytes/100 WBC (Bld) 9.1 % Normal 0-10 [facility] Comment on above: Performed By: #### L 501.3620, L100.0100, L500.4050, L501.9985, L503.0106, L503.6030, L503.6550 ####[facility] [address] [place], [address] Neutrophils/100 WBC (Bld) 76.5 % High 47-70 [facility] Comment on above: Performed By: #### L 501.3620, L100.0100, L500.4050, L501.9985, L503.0106, L503.6030, L503.6550 ####[facility] [address] [place], [address] Nucleated RBC (Bld) [#/Vol] 0 10*3/uL Normal 0-5 [facility] Comment on above: Performed By: #### L 501.3620, L100.0100, L500.4050, L501.9985, L503.0106, L503.6030, L503.6550 ####[facility] [address] [place], [address] Platelet mean volume (Bld) [Entitic vol] 11.6 fL Normal 6.2-12.0 [facility] Comment on above: Performed By: #### L 501.3620, L100.0100, L500.4050, L501.9985, L503.0106, L503.6030, L503.6550 ####[facility] [address] [place], [address] Platelets (Bld) [#/Vol] 185 10*3/uL Normal 150-450 [facility] Comment on above: Performed By: #### L 501.3620, L100.0100, L500.4050, L501.9985, L503.0106, L503.6030, L503.6550 ####[facility] [address] [place], [address] RBC (Bld) [#/Vol] 2.80 10*6/uL Low 4.2-5.4 [facility] Comment on above: Performed By: #### L 501.3620, L100.0100, L500.4050, L501.9985, L503.0106, L503.6030, L503.6550 ####[facility] [address] [place], [address] RDW SD 46.7 fl High 35.1-43.9 [facility] Comment on above: Performed By: #### L 501.3620, L100.0100, L500.4050, L501.9985, L503.0106, L503.6030, L503.6550 ####[facility] [address] [place], [place], [id number] WBC (Bld) [#/Vol] 9.2 10*3/uL Normal 4.4-11.0 [facility] Comment on above: Performed By: #### L 501.3620, L100.0100, L500.4050, L501.9985, L503.0106, L503.6030, L503.6550 ####[facility] [address] [place], [place], [id number] CPK Total, Creatine Kinaseon 03-08-2025 CPK TOTAL 736 U/L High 24-195 [facility] Comment on above: Performed By: #### L 501.3620, L100.0100, L500.4050, L501.9985, L503.0106, L503.6030, L503.6550 ####[facility] [address] [place], [address] Comprehensive Metabolic Prof ilon 03-08-2025 Albumin [Mass/Vol] 2.6 g/dL Low 3.4-4.8 [facility] Comment on above: Performed By: #### L 501.3620, L100.0100, L500.4050, L501.9985, L503.0106, L503.6030, L503.6550 ####[facility] [address] [place], [address] Albumin/Globulin [Mass ratio] 1.1 {ratio} Normal 0.9-2.4 [facility] Comment on above: Performed By: #### L 501.3620, L100.0100, L500.4050, L501.9985, L503.0106, L503.6030, L503.6550 ####[facility] [address] [place], [address] ALK PHOS 58 U/L Normal 35-104 [facility] Comment on above: Performed By: #### L 501.3620, L100.0100, L500.4050, L501.9985, L503.0106, L503.6030, L503.6550 ####[facility] [address] [place], [address] ALT [Catalytic activity/Vol] 48 U/L High <=34 [facility] Comment on above: Performed By: #### L 501.3620, L100.0100, L500.4050, L501.9985, L503.0106, L503.6030, L503.6550 ####[facility] [address] [place], [address] AST [Catalytic activity/Vol] 45 U/L High <=31 [facility] Comment on above: Performed By: #### L 501.3620, L100.0100, L500.4050, L501.9985, L503.0106, L503.6030, L503.6550 ####[facility] [address] [place], [address] Bilirubin [Mass/Vol] 0.25 mg/dL Normal 0.00-1.30 [facility] Comment on above: Performed By: #### L 501.3620, L100.0100, L500.4050, L501.9985, L503.0106, L503.6030, L503.6550 ####[facility] [address] [place], [address] BUN/CRE 52.5 RATIO High 10-20 [facility] Comment on above: Performed By: #### L 501.3620, L100.0100, L500.4050, L501.9985, L503.0106, L503.6030, L503.6550 ####[facility] [address] [place], [address] Calcium [Mass/Vol] 8.1 mg/dL Normal 7.6-11.0 [facility] Comment on above: Performed By: #### L 501.3620, L100.0100, L500.4050, L501.9985, L503.0106, L503.6030, L503.6550 ####[facility] [address] [place], [address] Chloride [Moles/Vol] 111 mmol/L High 98-108 [facility] Comment on above: Performed By: #### L 501.3620, L100.0100, L500.4050, L501.9985, L503.0106, L503.6030, L503.6550 ####[facility] [address] [place], [address] CO2 [Moles/Vol] 17.3 mmol/L Low 21.0-32.0 [facility] Comment on above: Performed By: #### L 501.3620, L100.0100, L500.4050, L501.9985, L503.0106, L503.6030, L503.6550 ####[facility] [address] [place], [address] Creatinine [Mass/Vol] 2.02 mg/dL High 0.70-1.20 [facility] Comment on above: Performed By: #### L 501.3620, L100.0100, L500.4050, L501.9985, L503.0106, L503.6030, L503.6550 ####[facility] [address] [place], [address] ECRCL 25.62 ml/min Low 50-250 [facility] Comment on above: Performed By: #### L 501.3620, L100.0100, L500.4050, L501.9985, L503.0106, L503.6030, L503.6550 ####[facility] [address] [place], [address] GAP 14 Normal 5-15 [facility] Comment on above: Performed By: #### L 501.3620, L100.0100, L500.4050, L501.9985, L503.0106, L503.6030, L503.6550 ####[facility] [address] [place], [address] GFR/1.73 sq M.predicted among non-blacks MDRD (S/P/Bld) [Vol rate/Area] 26 mL/min/{1.73_m2} Low >60 [facility] Comment on above: Result Comment: mL/m in/1.73m2 CKD-EPI Creatinine Equation (2020) Performed By: #### L 501.3620, L100.0100, L500.4050, L501.9985, L503.0106, L503.6030, L503.6550 ####[facility] [address] [place], [place], [phone]) Globulin (S) [Mass/Vol] 2.4 g/dL Normal 2.2-4.2 [facility] Comment on above: Performed By: #### L 501.3620, L100.0100, L500.4050, L501.9985, L503.0106, L503.6030, L503.6550 ####[facility] [address] [place], [address] Glucose [Mass/Vol] 172 mg/dL High 70-99 [facility] Comment on above: Performed By: #### L 501.3620, L100.0100, L500.4050, L501.9985, L503.0106, L503.6030, L503.6550 ####[facility] [address] [place], [address] Potassium [Moles/Vol] 3.8 mmol/L Normal 3.3-5.1 [facility] Comment on above: Performed By: #### L 501.3620, L100.0100, L500.4050, L501.9985, L503.0106, L503.6030, L503.6550 ####[facility] [address] [place], [address] Sodium [Moles/Vol] 143 mmol/L Normal 133-145 [facility] Comment on above: Performed By: #### L 501.3620, L100.0100, L500.4050, L501.9985, L503.0106, L503.6030, L503.6550 ####[facility] [address] [place], [address] T PROT 5.1 g/dL Low 5.9-8.4 [facility] Comment on above: Performed By: #### L 501.3620, L100.0100, L500.4050, L501.9985, L503.0106, L503.6030, L503.6550 ####[facility] [address] [place], [address] Urea nitrogen [Mass/Vol] 106 mg/dL Invalid Interpretation Code 4-19 [facility] Comment on above: Result Comment: Crit ical Result(s) Called at: by:??Results read back bysame.Critical Result(s) Called to Zoraida PENNINGTON (MS3): Blaiser:??Results read back by same. Performed By: #### L 501.3620, L100.0100, L500.4050, L501.9985, L503.0106, L503.6030, L503.6550 ####[facility] [address] [place], [address] Ferritinon 03-08-2025 Ferritin [Mass/Vol] 270 ng/mL Normal 22-378 [facility] Comment on above: Performed By: #### L 501.3620, L100.0100, L500.4050, L501.9985, L503.0106, L503.6030, L503.6550 ####[facility] [address] [place], [address] HH, Hemoglobin AND Hematocri ton 03-08-2025 Hematocrit (Bld) [Volume fraction] 24.0 % Low 37-47 [facility] Comment on above: Performed By: #### L 100.0600 ####[facility] [address] [place], [address] Hemoglobin (Bld) [Mass/Vol] 7.7 g/dL Low 12.0-15.0 [facility] Comment on above: Performed By: #### L 100.0600 ####[facility] [address] [place], [address] Hemoglobin A1con 03-08-2025 HbA1c (Bld) [Mass fraction] 6.5 % High <=5.6 [facility] Comment on above: Result Comment: Norm al < 5.7 % Prediabetic 5.7 - 6.4 % Diabetic >or= 6.5 % Please note range changes. Performed By: #### L 501.3620, L100.0100, L500.4050, L501.9985, L503.0106, L503.6030, L503.6550 ####[facility] [address] [place], [place], [address] Hemoglobin A1c percentageOrd ered By: Maddie Merchant on 03-08-2025 HbA1c (Bld) [Mass fraction] 6.5 % High <5.7 [facility] Comment on above: Normal < 5.7 % Predi abetic 5.7 - 6.4 % Diabetic >or= 6.5 % Please note range changes. Iron measurement (mass/mass) Ordered By: Maddie Merchant on 03-08-2025 Iron (Unsp spec) [Mass/Mass] 18 ug/dL Low 50-170 [facility] Iron+Iron Binding Capacityon 03-08-2025 TIBC TNP Normal 250-450 [facility] Comment on above: Performed By: #### L 501.3620, L100.0100, L500.4050, L501.9985, L503.0106, L503.6030, L503.6550 ####[facility] [address] [place], [place], [address] Laboratory - Chemistry and C hemistry - challengeOrdered By: Maddie Merchant on 03-08-2025 AST [Catalytic activity/Vol] 45 U/L High <32 [facility] No Panel InformationOrdered By: Maddie Merchant on 03-08-2025 Unsaturated Iron Binding Capacity 150 ug/dL Low 228-428 [facility] 45 U/L High <32 [facility] 150 ug/dL Low 228-428 [facility] Serum globulin measurementOr dered By: Maddie Merchant on 03-08-2025 Globulin (S) [Mass/Vol] 2.4 g/dL 2.2-4.2 [facility] Serum or plasma alanine anaya otransferase (ALT) measurementOrdered By: Maddie Merchant 03-08-2025 ALT [Catalytic activity/Vol] 48 U/L High <35 [facility] Serum or plasma albumin natalia urement (mass/volume)Ordered By: Maddie Merchant on 03-08-2025 Albumin [Mass/Vol] 2.6 g/dL Low 3.4-4.8 [facility] Serum or plasma albumin/glob ulin mass ratioOrdered By: Maddie Merchant on 03-08-2025 Albumin/Globulin [Mass ratio] 1.1 {ratio} 0.9-2.4 [facility] Serum or plasma alkaline chelsie sphatase measurementOrdered By: Maddie Merchant on 03-08-2025 ALP [Catalytic activity/Vol] 58 U/L 35-104 [facility] Serum or plasma ferritin areli surement (mass/volume)Ordered By: Maddie Merchant on 03-08-2025 Ferritin [Mass/Vol] 270 ng/mL 22-378 [facility] Serum or plasma iron saturat ion measurement (mass fraction)Ordered By: Maddie Merchant on 03-08-2025 Iron saturation [Mass fraction] 11.0 % Low 13-59 [facility] Total proteinOrdered By: Stacia Merchant on 03-08-2025 Protein [Mass/Vol] 5.1 g/dL Low 5.9-8.4 [facility] Vitamin B12on 03-08-2025 Cobalamin (Vitamin B12) [Mass/Vol] 3538 pg/mL High 180-914 [facility] Comment on above: Performed By: #### L 501.3620, L100.0100, L500.4050, L501.9985, L503.0106, L503.6030, L503.6550 ####[facility] [address] [place], [place], [id number] Vitamin B12 ser/plasOrdered By: Maddie Merchant on 03-08-2025 Cobalamin (Vitamin B12) [Mass/Vol] 3538 pg/mL High 180-914 [facility] 12 Lead EKGon 03-07-2025 12 Lead EKG Normal [facility] Absolute neutrophil countOrd ered By: Megan Anderson on 03-07-2025 Neutrophils (Bld) [#/Vol] 12.9 10*3/uL High 2.0-7.7 [facility] Anion gap in Serum or Plasma Ordered By: Megan Anderson on 03-07-2025 Anion gap [Moles/Vol] 18 mmol/L High 04-02 [facility] BUN/creatinine ratioOrdered By: Megan Anderson on 03-07-2025 Urea nitrogen/Creatinine [Mass ratio] 51.2 mg/mg High 09-07 [facility] Basic Metabolic Profile (BMP )on 03-07-2025 BUN/CRE 51.2 RATIO High 10-20 [facility] Comment on above: Performed By: #### L 500.2500, L100.0100, L501.3620 ####[facility] [address] [place], [address] Calcium [Mass/Vol] 8.8 mg/dL Normal 7.6-11.0 [facility] Comment on above: Performed By: #### L 500.2500, L100.0100, L501.3620 ####[facility] [address] [place], [address] Chloride [Moles/Vol] 105 mmol/L Normal 98-108 [facility] Comment on above: Performed By: #### L 500.2500, L100.0100, L501.3620 ####[facility] [address] [place], [address] CO2 [Moles/Vol] 16.8 mmol/L Low 21.0-32.0 [facility] Comment on above: Performed By: #### L 500.2500, L100.0100, L501.3620 ####[facility] [address] [place], [address] Creatinine [Mass/Vol] 2.54 mg/dL High 0.70-1.20 [facility] Comment on above: Performed By: #### L 500.2500, L100.0100, L501.3620 ####[facility] [address] [place], [address] ECRCL 20.75 ml/min Low 50-250 [facility] Comment on above: Performed By: #### L 500.2500, L100.0100, L501.3620 ####[facility] [address] [place], [address] GAP 18 High 5-15 [facility] Comment on above: Performed By: #### L 500.2500, L100.0100, L501.3620 ####[facility] [address] [place], [address] GFR/1.73 sq M.predicted among non-blacks MDRD (S/P/Bld) [Vol rate/Area] 19 mL/min/{1.73_m2} Low >60 [facility] Comment on above: Result Comment: mL/m in/1.73m2 CKD-EPI Creatinine Equation (2020) Performed By: #### L 500.2500, L100.0100, L501.3620 ####[facility] [address] [place], [address] Glucose [Mass/Vol] 178 mg/dL High 70-99 [facility] Comment on above: Performed By: #### L 500.2500, L100.0100, L501.3620 ####[facility] [address] [place], [address] Potassium [Moles/Vol] 4.5 mmol/L Normal 3.3-5.1 [facility] Comment on above: Performed By: #### L 500.2500, L100.0100, L501.3620 ####[facility] [address] [place], [address] Sodium [Moles/Vol] 140 mmol/L Normal 133-145 [facility] Comment on above: Performed By: #### L 500.2500, L100.0100, L501.3620 ####[facility] [address] [place], [address] Urea nitrogen [Mass/Vol] 130 mg/dL Invalid Interpretation Code 03-07 [facility] Comment on above: Result Comment: Crit ical Result(s) Called at: by:??Results read back bysanc.Critical Result(s) Called ACOLE at: 1532 by:CHRISTIN??Results read back by same. Performed By: #### L 500.2500, L100.0100, L501.3620 ####[facility] [address] [place], [address] Basophil percentageOrdered B y: Megan Anderson on 03-07-2025 Basophils/100 WBC (Bld) 0.3 % 0-1 [facility] Bilirubin Test strip Ql (U)O rdered By: Megan Anderson on 03-07-2025 Bilirubin Ql (U) Negative Negative [facility] Bilirubin directOrdered By: Maddie Merchant on 03-07-2025 Bilirubin.direct [Mass/Vol] 0.25 mg/dL 0.00-0.30 [facility] CBC W/Diff, Automatedon 02-17 Absolute Lymph 0.76 X10 3/uL Low 0.83-4.51 [facility] Comment on above: Performed By: #### L 500.2500, L100.0100, L501.3620 ####[facility] [address] [place], [address] Absolute Neut 12.9 X10 3/uL High 2.0-7.7 [facility] Comment on above: Performed By: #### L 500.2500, L100.0100, L501.3620 ####[facility] [address] [place], [address] Basophils/100 WBC (Bld) 0.3 % Normal 0-1 [facility] Comment on above: Performed By: #### L 500.2500, L100.0100, L501.3620 ####[facility] [address] [place], [address] Eosinophils/100 WBC (Bld) 0.4 % Normal 0-5 [facility] Comment on above: Performed By: #### L 500.2500, L100.0100, L501.3620 ####[facility] [address] [place], [address] Erythrocyte distribution width (RBC) [Ratio] 14.5 % Normal 11.6-14.6 [facility] Comment on above: Performed By: #### L 500.2500, L100.0100, L501.3620 ####[facility] [address] [place], [address] Hematocrit (Bld) [Volume fraction] 27.2 % Low 37-47 [facility] Comment on above: Performed By: #### L 500.2500, L100.0100, L501.3620 ####[facility] [address] [place], [address] Hemoglobin (Bld) [Mass/Vol] 8.7 g/dL Low 12.0-15.0 [facility] Comment on above: Performed By: #### L 500.2500, L100.0100, L501.3620 ####[facility] [address] [place], [address] IG% 1.000 High 0.0-0.9 [facility] Comment on above: Result Comment: IG% - Immature Granulocytes (promyelocytes, myelocytes andmetamyelocytes) > 1% indicates that a LEFT SHIFT is Present. Performed By: #### L 500.2500, L100.0100, L501.3620 ####[facility] [address] [place], [address] Lymphocytes/100 WBC (Bld) 5.2 % Low 19-41 [facility] Comment on above: Performed By: #### L 500.2500, L100.0100, L501.3620 ####[facility] [address] [place], [address] MCH (RBC) [Entitic mass] 28.3 pg Normal 27.0-32.0 [facility] Comment on above: Performed By: #### L 500.2500, L100.0100, L501.3620 ####[facility] [address] [place], [address] MCHC (RBC) [Mass/Vol] 32.0 g/dL Normal 32-36 [facility] Comment on above: Performed By: #### L 500.2500, L100.0100, L501.3620 ####[facility] [address] [place], [address] MCV (RBC) [Entitic vol] 88.6 fL Normal 81-99 [facility] Comment on above: Performed By: #### L 500.2500, L100.0100, L501.3620 ####[facility] [address] [place], [address] Monocytes/100 WBC (Bld) 5.3 % Normal 0-10 [facility] Comment on above: Performed By: #### L 500.2500, L100.0100, L501.3620 ####[facility] [address] [place], [address] Neutrophils/100 WBC (Bld) 87.8 % High 47-70 [facility] Comment on above: Performed By: #### L 500.2500, L100.0100, L501.3620 ####[facility] [address] [place], [address] Nucleated RBC (Bld) [#/Vol] 0 10*3/uL Normal 0-5 [facility] Comment on above: Performed By: #### L 500.2500, L100.0100, L501.3620 ####[facility] [address] [place], [address] Platelet mean volume (Bld) [Entitic vol] 11.3 fL Normal 6.2-12.0 [facility] Comment on above: Performed By: #### L 500.2500, L100.0100, L501.3620 ####[facility] [address] [place], [address] Platelets (Bld) [#/Vol] 216 10*3/uL Normal 150-450 [facility] Comment on above: Performed By: #### L 500.2500, L100.0100, L501.3620 ####[facility] [address] [place], [address] RBC (Bld) [#/Vol] 3.07 10*6/uL Low 4.2-5.4 [facility] Comment on above: Performed By: #### L 500.2500, L100.0100, L501.3620 ####[facility] [address] [place], [address] RDW SD 45.6 fl High 35.1-43.9 [facility] Comment on above: Performed By: #### L 500.2500, L100.0100, L501.3620 ####[facility] [address] [place], [address] WBC (Bld) [#/Vol] 14.7 10*3/uL High 4.4-11.0 [facility] Comment on above: Performed By: #### L 500.2500, L100.0100, L501.3620 ####[facility] [address] [place], [address] CPK Total, Creatine Kinaseon 03-07-2025 CPK TOTAL 837 U/L High 24-195 [facility] Comment on above: Performed By: #### L 500.2500, L100.0100, L501.3620 ####[facility] [address] [place], [address] Carbon dioxide, total [Moles /volume] in Central venous bloodOrdered By: Megan Anderson on 03-07-2025 CO2 [Moles/Vol] 16.8 mmol/L Low 21.0-32.0 [facility] Chest 1 View (Portable)on Chest 1 View (Portable) Normal [facility] Chloride assayOrdered By: Teri Anderson on 03-07-2025 Chloride [Moles/Vol] 105 mmol/L 98-108 [facility] Emergency Department Summary on 03-07-2025 Emergency Department Summary Normal [facility] Eosinophil percentageOrdered By: Megan Anderson on 03-07-2025 Eosinophils/100 WBC (Bld) 0.4 % 0-5 [facility] Epithelial cells.squamous LM Ql (Urine sed)Ordered By: Megan Anderson on 03-07-2025 Epithelial cells.squamous LM.HPF (Urine sed) [#/Area] 0 /[HPF] 5-10 [facility] Erythrocyte distribution wid th (RBC) [Ratio]Ordered By: Megan Anderson on 03-07-2025 Erythrocyte distribution width (RBC) [Entitic vol] 45.6 fL High 35.1-43.9 [facility] Erythrocyte distribution wid th ratioOrdered By: Megan Anderson on 03-07-2025 Erythrocyte distribution width (RBC) [Ratio] 14.5 % 11.6-14.6 [facility] Estimation of creatinine chirag aranceOrdered By: Megan Anderson on 03-07-2025 Estimated Creatinine Clearance Calc 20.75 ml/min Low 50-250 [facility] GFR/1.73 sq M.predicted sadia g non-blacks MDRD (S/P/Bld) [Vol rate/Area]Ordered By: Megan Anderson on 03-07-2025 Estimated GFR (MDRD) Non-Af Amer 19 Low >60 [facility] Comment on above: mL/min/1.73m2 CKD-EP I Creatinine Equation (2020) Glucose Ql (U)Ordered By: Teri Anderson on 03-07-2025 Urine Glucose (UA) Normal mg/dl Normal [facility] H AND P Exam - [facility] 03-07-2025 H&P Exam - Hospitalist Normal [facility] HH, Hemoglobin AND Hematocri ton 03-07-2025 Hematocrit (Bld) [Volume fraction] 25.0 % Low 37-47 [facility] Comment on above: Performed By: #### L 100.0600 ####[facility] [id number] [place], [address] Hemoglobin (Bld) [Mass/Vol] 8.3 g/dL Low 12.0-15.0 [facility] Comment on above: Performed By: #### L 100.0600 ####[facility] [id number] [place] [place], [id number] HIP, UNI W/ Pelvis 2-3 Views on 03-07-2025 HIP, UNI W/ Pelvis 2-3 Views Normal [facility] Hematocrit Auto (Bld) [Volum e fraction]Ordered By: Megan Anderson on 03-07-2025 Hematocrit (Bld) [Volume fraction] 27.2 % Low 37-47 [facility] Hemoglobin measurementOrdere d By: Megan Anderson on 03-07-2025 Hemoglobin (Bld) [Mass/Vol] 8.7 g/dL Low 12.0-15.0 [facility] Immature granulocytes/100 WB C Auto (Bld)Ordered By: Megan Anderson on 03-07-2025 Immature granulocytes/100 WBC (Bld) 1.000 % High 0.0-0.9 [facility] Comment on above: IG% - Immature Granu locytes (promyelocytes, myelocytes and metamyelocytes) > 1% indicates that a LEFT SHIFT is Present. Ketones Test strip Ql (U)Ord ered By: Megan Anderson on 03-07-2025 Ketones Ql (U) 5 mg/dl High Negative [facility] Liver Profileon 03-07-2025 Albumin [Mass/Vol] 3.1 g/dL Low 3.4-4.8 [facility] Comment on above: Order Comment: Comme nts: May add to ED labsComments: may add to ED labs Performed By: #### L 501.5200, L501.2300, L500.3400 ####[facility] [address] [place], [address] ALK PHOS 66 U/L Normal 35-104 [facility] Comment on above: Order Comment: Comme nts: May add to ED labsComments: may add to ED labs Performed By: #### L 501.5200, L501.2300, L500.3400 ####[facility] [address] [place], [address] ALT [Catalytic activity/Vol] 60 U/L High <=34 [facility] Comment on above: Order Comment: Comme nts: May add to ED labsComments: may add to ED labs Performed By: #### L 501.5200, L501.2300, L500.3400 ####[facility] [address] [place], [address] AST [Catalytic activity/Vol] 52 U/L High <=31 [facility] Comment on above: Order Comment: Comme nts: May add to ED labsComments: may add to ED labs Performed By: #### L 501.5200, L501.2300, L500.3400 ####[facility] [address] [place], [address] Bilirubin [Mass/Vol] 0.42 mg/dL Normal 0.00-1.30 [facility] Comment on above: Order Comment: Comme nts: May add to ED labsComments: may add to ED labs Performed By: #### L 501.5200, L501.2300, L500.3400 ####[facility] [address] [place], [address] Bilirubin.direct [Mass/Vol] 0.25 mg/dL Normal 0.00-0.30 [facility] Comment on above: Order Comment: Comme nts: May add to ED labsComments: may add to ED labs Performed By: #### L 501.5200, L501.2300, L500.3400 ####[facility] [address] [place], [address] Globulin (S) [Mass/Vol] 2.8 g/dL Normal 2.2-4.2 [facility] Comment on above: Order Comment: Comme nts: May add to ED labsComments: may add to ED labs Performed By: #### L 501.5200, L501.2300, L500.3400 ####[facility] [address] [place], [address] T PROT 5.9 g/dL Normal 5.9-8.4 [facility] Comment on above: Order Comment: Comme nts: May add to ED labsComments: may add to ED labs Performed By: #### L 501.5200, L501.2300, L500.3400 ####[facility] [address] [place], [address] Lower GI hemoglobin IA Ql (S tl)Ordered By: Megan Anderson on 03-07-2025 Stool Occult Blood (ERIAC) Positive Abnormal [facility] Lymphocytes Auto (Unsp spec) [#/Vol]Ordered By: Megan Anderson on 03-07-2025 Lymphocytes (Bld) [#/Vol] 0.76 10*3/uL Low 0.83-4.51 [facility] Lymphocytes/100 WBC Auto (Un sp spec)Ordered By: Megan Anderson on 03-07-2025 Lymphocytes/100 WBC (Bld) 5.2 % Low 19-41 [facility] MCV (mean corpuscular volume ) determinationOrdered By: Megan Anderson on 03-07-2025 MCV (RBC) [Entitic vol] 88.6 fL 81-99 [facility] Magnesiumon 03-07-2025 Magnesium [Mass/Vol] 2.9 mg/dL High 1.5-2.2 [facility] Comment on above: Order Comment: Comme nts: May add to ED labsComments: may add to ED labs Performed By: #### L 501.5200, L501.2300, L500.3400 ####[facility] [address] [place], [address] Magnesium measurement (mass/ volume)Ordered By: Maddie Merchant on 03-07-2025 Magnesium (Unsp spec) [Mass/Vol] 2.9 mg/dL High 1.5-2.2 [facility] Mean corpuscular hemoglobin (MCH) determinationOrdered By: Megan Anderson on 03-07-2025 MCH (RBC) [Entitic mass] 28.3 pg 27.0-32.0 [facility] Mean corpuscular hemoglobin concentration (MCHC) determinationOrdered By: Megan Anderson on 03-07-2025 MCHC (RBC) [Mass/Vol] 32.0 g/dL 32-36 [facility] Mean platelet volume determi nationOrdered By: Megan Anderson on 03-07-2025 Platelet mean volume (Bld) [Entitic vol] 11.3 fL 6.2-12.0 [facility] Microscopic analysis of urin e for red blood cells (RBC)Ordered By: Megan Anderson on 03-07-2025 Microscopic analysis of urine for red blood cells (RBC) 0 SEEN /hpf 0-5 [facility] Urine RBC 0 SEEN /hpf 0-5 [facility] Monocyte percentageOrdered B y: Megan Anderson on 03-07-2025 Monocytes/100 WBC (Bld) 5.3 % 0-10 [facility] Mucus LM Ql (Urine sed)Order ed By: Megan Anderson on 03-07-2025 Mucus Ql (Urine sed) 0 SEEN /hpf [facility] Neutrophil percentageOrdered By: Megan Anderson on 03-07-2025 Neutrophils/100 WBC (Bld) 87.8 % High 47-70 [facility] Nitrite Test strip Ql (U)Ord ered By: Megan Anderson on 03-07-2025 Nitrite Ql (U) Positive High Negative [facility] Nucleated red blood cell per centageOrdered By: Megan Anderson on 03-07-2025 Nucleated RBC/100 WBC (Bld) [Ratio] 0 % 0-5 [facility] Phosphoruson 03-07-2025 Phosphate [Mass/Vol] 5.0 mg/dL High 2.7-4.5 [facility] Comment on above: Order Comment: Comme nts: May add to ED labsComments: may add to ED labs Performed By: #### L 501.5200, L501.2300, L500.3400 ####[facility] [address] [place], [address] Platelet countOrdered By: Teri Anderson on 03-07-2025 Platelets (Bld) [#/Vol] 216 10*3/uL 150-450 [facility] Potassium (Unsp spec) [Mass/ Vol]Ordered By: Megan Anderson on 03-07-2025 Potassium [Moles/Vol] 4.5 mmol/L 3.3-5.1 [facility] Protein Test strip Ql (U)Ord ered By: Megan Anderson on 03-07-2025 Protein Ql (U) 30 mg/dl High Negative [facility] RBC Auto (Bld) [#/Vol]Ordere d By: Megan Anderson on 03-07-2025 RBC (Bld) [#/Vol] 3.07 10*6/uL Low 4.2-5.4 [facility] Serum creatinine measurement (mass/volume)Ordered By: Megan Anderson on 03-07-2025 Creatinine [Mass/Vol] 2.54 mg/dL High 0.70-1.20 [facility] Serum glucose measurement (m ass/volume)Ordered By: Megan Anderson on 03-07-2025 Glucose [Mass/Vol] 178 mg/dL High 70-99 [facility] Serum or plasma calcium natalia urement (mass/volume)Ordered By: Megan Anderson on 03-07-2025 Calcium [Mass/Vol] 8.8 mg/dL 7.6-11.0 [facility] Serum or plasma creatine kin ase activityOrdered By: Megan Anderson on 03-07-2025 CK [Catalytic activity/Vol] 837 U/L High 24-195 [facility] Serum or plasma urea nitroge n measurement (mass/volume)Ordered By: Megan Anderson on 03-07-2025 Urea nitrogen [Mass/Vol] 130 mg/dL High 4-19 [facility] Comment on above: Critical Result(s) C alled at: by: Results read back by same.Critical Result(s) Called ACOLE at: 1532 by: CHRISTIN Results read back by same. Sodium levelOrdered By: Megan Anderson on 03-07-2025 Sodium [Moles/Vol] 140 mmol/L 133-145 [facility] Squamous epithelial cells de tection in urine sediment by light microscopyOrdered By: Megan Anderson on 03-07-2025 Epithelial cells.squamous LM Ql (Urine sed) 0 SEEN /hpf 5-10 [facility] Stool Occult Blood iFOBon STOB Positive Normal [facility] Comment on above: Performed By: #### M 100.7900 ####[facility] [address] [place], [address] Stool gastrointestinal hemog lobin detection by immunologic methodOrdered By: Megan Anderson on 03-07-2025 Lower GI hemoglobin IA Ql (Stl) Positive Abnormal [facility] Type AND Screenon 03-07-2025 ABO and Rh group Nom (Bld) Blood group A Rh(D) positive Normal [facility] Comment on above: Order Comment: HGI Performed By: #### B TS ####[facility] [address] [place], [address] Urinalysis, Completeon 03-07 BACTERIA 1+ /hpf Normal None Seen [facility] Comment on above: Order Comment: COLLE CTOR TO SPECIFY Performed By: #### L 400.0001 ####[facility] [address] [place], [address] WBC >100 SEEN Normal 0-5 [facility] Comment on above: Order Comment: COLLE CTOR TO SPECIFY Performed By: #### L 400.0001 ####[facility] [address] [place], [address] EPI,SQUAMOUS 0 SEEN Normal 5-10 [facility] Comment on above: Order Comment: COLLE CTOR TO SPECIFY Performed By: #### L 400.0001 ####[facility] [address] [place], [address] Mucus Ql (Urine sed) 0 SEEN Normal [facility] Comment on above: Order Comment: COLLE CTOR TO SPECIFY Performed By: #### L 400.0001 ####[facility] [address] [place], [place], [address] RBC 0 SEEN Normal 0-5 [facility] Comment on above: Order Comment: CORRIE CTOR TO SPECIFY Performed By: #### L 400.0001 ####[facility] [address] [place], [place], [address] Urine blood detectionOrdered By: Megan Anderson on 03-07-2025 Urine Occult Blood 150 /ul High Negative [facility] Urine clarityOrdered By: Carmen Anderson on 03-07-2025 Clarity (U) Cloudy Clear [facility] Urine color determinationOrd ered By: Megan Anderson on 03-07-2025 Color (U) Yellow Yellow [facility] Urine cultureOrdered By: Mervin Becker on 03-07-2025 Bacteria identified Cx Nom (U) Klebsiella oxytoca Abnormal [facility] Urine glucose detectionOrder ed By: Megan Anderson on 03-07-2025 Glucose Ql (U) Normal mg/dl Normal [facility] Urine leukocyte esterase det ection by dipstickOrdered By: Megan Anderson on 03-07-2025 Leukocyte esterase Test strip Ql (U) 500 /ul High Negative [facility] Urine pHOrdered By: Megan louis on 03-07-2025 pH (U) 6.0 [pH] 5.0 - 8.0 [facility] Urine sediment bacteria coun t by microscopy (number/high power field)Ordered By: Megan Anderson on 03-07-2025 Bacteria LM.HPF (Urine sed) [#/Area] 1 /[HPF] None Seen [facility] Urine specific gravity measu rementOrdered By: Megan Anderson on 03-07-2025 Specific gravity (U) [Rel density] 1.015 1.002-1.030 [facility] Urine urobilinogen measureme ntOrdered By: Megan Anderson on 03-07-2025 Urobilinogen Ql (U) Normal mg/dl Normal [facility] Urobilinogen Ql (U)Ordered B y: Megan Anderson on 03-07-2025 Urine Urobilinogen Normal mg/dl Normal [facility] White blood cell (WBC) count Ordered By: Megan Anderson on 03-07-2025 WBC (Bld) [#/Vol] 14.7 10*3/uL High 4.4-11.0 [facility] White blood cell countOrdere d By: Megan Anderson on 03-07-2025 Urine WBC >100 SEEN /hpf 0-5 [facility] White blood cell count >100 SEEN /hpf 0-5 [facility] Culture, Anaerobic Any Sourc adonis 2025 CUAN Normal [facility] Comment on above: Performed By: #### M 100.2000, M100.3000, M100.4001 ####[facility] [address] [place], [address] Wound Cultureon 02-28-2025 WC Normal [facility] Comment on above: Performed By: #### M 100.2000, M100.3000, M100.4001 ####[facility] [address] [place], [address] Gram Stainon 02-27-2025 GS LEFT FOOT WOUND GRAM STAIN Gram Stain No Epithelial cells 1+ Gram positive cocci 1+ White Blood Cells Normal [facility] Comment on above: Performed By: #### M 100.2000, M100.3000, M100.4001 ####[facility] [address] [place], [address] Anaerobic cultureOrdered By: Patel Irene on 02-26-2025 Bacteria identified Anaer cx Nom (Unsp spec) Anaerobic cocci Abnormal [facility] Bacteria identified Anaer cx Nom (Unsp spec)Ordered By: Patel Irene on 02-26-2025 Anaerobic Culture Anaerobic cocci Abnormal [facility] Gram stainOrdered By: Keri Irene on 02-26-2025 Microscopic observation Gram stain Nom (Unsp spec) [facility] Routine wound cultureOrdered By: Patel Irene on 02-26-2025 Microbial culture, routine Meth. resistant Staph. aureus Abnormal [facility] Wound Culture Meth. resistant Stap h. aureus Abnormal [facility] Wound Cultureon 02-19-2025 WC Normal [facility] Comment on above: Performed By: #### M 100.1999, .2999 ####[facility] [address] [place], [address] Gram Stainon 02-17-2025 GS Gram Stain No White Blood Cells No organisms seen Normal [facility] Comment on above: Performed By: #### M 100.1999, .2999 ####[facility] [address] [place], [address] Decalcification bone/plaqueo n 02-16-2025 Decalcification bone/plaque Normal [facility] Comment on above: Performed By: #### P DEC ####[facility] [address] [place], [address] Gram stainOrdered By: Rishi Vasquez on 02-16-2025 Microscopic observation Gram stain Nom (Unsp spec) [facility] Routine wound cultureOrdered By: Rishi Vasquez on 02-16-2025 Microbial culture, routine Meth. resistant Staph. aureus Abnormal [facility] Wound Culture Meth. resistant Stap h. aureus Abnormal [facility] Wound Culture Negative Abnormal [facility] Wound Cultureon 02-06-2025 WC Normal [facility] Comment on above: Performed By: #### M 100.2999, ####[facility] [address] [place], [address] Gram Stainon 02-04-2025 GS Positive Normal [facility] Comment on above: Performed By: #### M 100.2999, ####[facility] [address] [place], [address] Gram stainOrdered By: Rishi Vasquez on 02-03-2025 Microscopic observation Gram stain Nom (Unsp spec) [facility] Routine wound cultureOrdered By: Rishi Vasquez on 02-03-2025 Microbial culture, routine Meth. resistant Staph. aureus Abnormal [facility] Wound Culture Meth. resistant Stap h. aureus Abnormal [facility] Lower Ext Art Exam w/o Exerc kris 01-06-2025 Lower Ext Art Exam w/o Exercis Normal [facility] Culture, Anaerobic Any Sourc adonis 01-03-2025 CUAN ONLY AN AEROBIC SWAB WAS RECEIVED FOR CULTURE. GROWTH OF ANAEROBES MAY BE INHIBITED. No anaerobic bacteria isolated. Normal [facility] Comment on above: Performed By: #### M 100.4001, M1.1999, M100.3000 ####[facility] [address] [place], [address] Wound Cultureon 01-02-2025 WC Normal [facility] Comment on above: Performed By: #### M 100.4001, M100.1999, M100.3000 ####[facility] [address] [place], [address] Anaerobic cultureOrdered By: Patel Irene on 12-31-2024 Bacteria identified Anaer cx Nom (Unsp spec) No anaerobic bacteria isolated. [facility] Bacteria identified Anaer cx Nom (Unsp spec)Ordered By: Patel Irene on 12-31-2024 Anaerobic Culture No anaerobic bacteri a isolated. [facility] Gram Stainon 12-31-2024 GS ONLY AN AEROBIC SWAB WAS RECEIVED FOR CULTURE. GROWTH OF ANAEROBES MAY BE INHIBITED. Gram Stain 2+ Gram positive cocci 2+ Red Blood Cells Normal [facility] Comment on above: Performed By: #### M 100.4001, M100.1999, M100.3000 ####[facility] [address] [place], [address] Gram stainOrdered By: Keri Irene on 12-31-2024 Microscopic observation Gram stain Nom (Unsp spec) [facility] Routine wound cultureOrdered By: Patel Irene on 12-31-2024 Microbial culture, routine Meth. resistant Staph. aureus Abnormal [facility] Wound Culture Meth. resistant Stap h. aureus Abnormal [facility] L3410.9998on 12-24-2024 [facility] Misc. COMMENT Normal . [facility] Comment on above: Order Comment: [id number] 1WOUND CULTURE Result Comment: Test Ordered: [id number] Anaerobic/Aerobic/Gram StainAnaerobic Culture Note: Final report Reference Range: .Result 1 [...] cephalosporins, clindamycin,and trimethoprim-sulfamethoxazole are not effectiveclinically. (CLSI, R231-H31, 2016)Light growthEnterococci susceptible to penicillin are predictablysusceptible to ampicillin, amoxicillin, ampicillin-sulbactam, amoxicillin-clavulanate, and piperacillin-tazobactam for zex-ibxp-qzmdtrqac producing enterococci.(CLSI 2018)Antimicrobial Susceptibility Comment CB Reference [...] organisms seen Reference Range: .Performed at: - [address] [id number] Director: Chele Santoyo PhD, Phone: [phone] Performed By: #### L 3410.9998 ####[facility] [address] [place], [place], [address] CNOVon 12-05-2024 CNOV Office Visit (FAMPWS ) -------- GELY NEWMAN ([id number]) 1950 F Date Time Provider Department 12/05/24 9:00 [facility] today, we recorded the [...] Seeing Dr. Franco for pain mgmt at [facility] and she is now taking Lyrica instead [...] mellitus (HCC) Coronary artery disease Dr. Ch Asphalt Patcher, 90% blockage- unable to do stenting Diabetes mellitus type 2 in obese Diabetic feet (HCC) Gangrene (HCC) 2012 RIGHT FOOT Hypertension Mild non proliferative diabetic retinopathy (HCC) 06/11/2013 Both eyes, Dr. Ortiz [place] [facility]-03/25/2020 left mild, right moderate Multiple thyroid nodules last US 01/2015 Peripheral artery disease (HCC) due to Diabetes mellitus, Dr. Kwaku Moscoso Rotator cuff syndrome of left shoulder Dr. 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DL PEL/LXTR ART BRNCH 06-07-16 APLL Social History Tobacco Use Smoking status: Former Current packs/day: 0.00 Average packs/day: 0.5 packs/day for 45.0 years (22.5 ttl pk-yrs) Types: Cigarettes Start date: 12/20/1967 Quit date: 12/20/2012 Years since quittin.9 Smokeless tobacco: Never Substance Use Topics Alcohol use: No Drug use: No FAMILY H (more content not included)... Normal [facility] 25(OH)D3 [facility] 25-hydroxyvitamin D3 [Mass/Vol] 62.6 ng/mL Normal 31.0-80.0 [facility] Comment on above: Order Comment: Speci men Type: BLOOD SPECIMEN Ordering Facility: [facility] Address: [address] [place] [address] Result Comment: Clas sification of 25 [place] Vitamin D status: Deficiency/Insufficiency: < or = 30 ng/ml. Sufficiency/Optimal Levels: 31-80 ng/mL Toxicity: > 100 ng/mL. Test performed by chemiluminescent immunoassay. Performed By: #### 2 132-9 #### [facility] CLIA [id number] [address] [place] [address] [place] [address] [place] CBC panel Auto (Bld)on 12-01 Erythrocyte distribution width (RBC) [Ratio] 12.5 % Normal 11.5-15.0 [facility] Comment on above: Order Comment: Speci men Type: BLOOD SPECIMENOrdering Facility: [facility] Address: [address] [place] [address] Performed By: #### 5 8410-2 ####[facility] LABCLIA [id number] [place] [address] [place] Hematocrit (Bld) [Volume fraction] 37.8 % Normal 36.0-46.0 [facility] Comment on above: Order Comment: Speci men Type: BLOOD SPECIMENOrdering Facility: [facility] Address: [address] [place] [address] Performed By: #### 5 8410-2 ####[facility] LABIA [id number] [place] [address] [place] Hemoglobin (Bld) [Mass/Vol] 12.1 g/dL Normal 11.5-15.5 [facility] Comment on above: Order Comment: Speci men Type: BLOOD SPECIMENOrdering Facility: [facility] Address: [address] [place] [address] Performed By: #### 5 8410-2 ####[facility]IA [id number] [place] [address] [place] MCH (RBC) [Entitic mass] 31.2 pg Normal 26.0-34.0 [facility] Comment on above: Order Comment: Speci men Type: BLOOD SPECIMENOrdering Facility: [facility] Address: [address] [place] [address] Performed By: #### 5 8410-2 ####[facility] LABCLIA [id number] [place] [address] [place] MCHC (RBC) [Mass/Vol] 32.0 g/dL Normal 30.5-36.0 [facility] Comment on above: Order Comment: Speci men Type: BLOOD SPECIMENOrdering Facility: [facility] Address: [address] [place] [address] Performed By: #### 5 8410-2 ####[facility] [id number] [place] [address] [place] MCV (RBC) [Entitic vol] 97.4 fL Normal 80.0-100.0 [facility] Comment on above: Order Comment: Speci men Type: BLOOD SPECIMENOrdering Facility: [facility] Address: [address] [place] [address] Performed By: #### 5 8410-2 ####[facility] [id number] [place] [address] [place] Nucleated RBC (Bld) [#/Vol] 10*3/uL Normal <0.01 [facility] Comment on above: Order Comment: Speci men Type: BLOOD SPECIMENOrdering Facility: [facility] Address: [address] [place] [address] Performed By: #### 5 8410-2 ####[facility] [id number] [place] [address] [place] Platelet mean volume (Bld) [Entitic vol] 12.3 fL Normal 9.0-12.7 [facility] Comment on above: Order Comment: Speci men Type: BLOOD SPECIMENOrdering Facility: [facility] Address: [address] [place] [address] Performed By: #### 5 8410-2 ####[facility] LABIA [id number] [place] [address] [place] Platelets (Bld) [#/Vol] 160 10*3/uL Normal 150-400 [facility] Comment on above: Order Comment: Speci men Type: BLOOD SPECIMENOrdering Facility: [facility] Address: [address] [place] [address] Performed By: #### 5 8410-2 ####[facility] LABIA [id number] [address] [address] [place] RBC (Bld) [#/Vol] 3.88 10*6/uL Low 3.90-5.20 [facility] Comment on above: Order Comment: Speci men Type: BLOOD SPECIMENOrdering Facility: [facility] Address: [address] [place] [address] Performed By: #### 5 8410-2 ####[facility]IA [id number] [place] [address] [place] WBC (Bld) [#/Vol] 5.99 10*3/uL Normal 3.70-11.00 [facility] Comment on above: Order Comment: Speci men Type: BLOOD SPECIMENOrdering Facility: [facility] Address: [address] [place] [address] Performed By: #### 5 8410-2 ####[facility] [id number] [place] [id number] [place] Comprehensive metabolic 2000 panelon 12-01-2024 Albumin [Mass/Vol] 4.0 g/dL Normal 3.9-4.9 [facility] Comment on above: Order Comment: Speci men Type: BLOOD SPECIMENOrdering Facility: [facility] Address: [address] [place] [address] Performed By: #### 2 4323-8, 3024-7, 43373-9, 3016-3 ####[facility] [id number] [place] [id number] [place] ALP [Catalytic activity/Vol] 67 U/L Normal 34-123 [facility] Comment on above: Order Comment: Speci men Type: BLOOD SPECIMENOrdering Facility: [facility] Address: [address] [place] [address] Performed By: #### 2 4323-8, 3024-7, 60334-8, 3016-3 ####[facility] LABCLIA [id number] [address] [address] [place] ALT [Catalytic activity/Vol] 19 U/L Normal 7-38 [facility] Comment on above: Order Comment: Speci men Type: BLOOD SPECIMENOrdering Facility: [facility] Address: [address] [place] [address] Performed By: #### 2 4323-8, 3024-7, 35359-6, 3016-3 ####[facility] LABCLIA [id number] [address] [address] [place] Anion gap [Moles/Vol] 16 mmol/L High 8-15 [facility] Comment on above: Order Comment: Speci men Type: BLOOD SPECIMENOrdering Facility: [facility] Address: [address] [place] [address] Performed By: #### 2 4323-8, 3024-7, 61402-7, 6-3 ####[facility] LABCLIA [id number] [address] [address] [place] AST [Catalytic activity/Vol] 31 U/L Normal 13-35 [facility] Comment on above: Order Comment: Speci men Type: BLOOD SPECIMENOrdering Facility: [facility] Address: [address] [place] [address] Performed By: #### 2 4323-8, 3024-7, 68519-4, 6-3 ####[facility] LABCLIA [id number] [address] [address] [place] Bilirubin [Mass/Vol] 0.4 mg/dL Normal 0.2-1.3 [facility] Comment on above: Order Comment: Speci men Type: BLOOD SPECIMENOrdering Facility: [facility] Address: [address] [place] [address] Performed By: #### 2 4323-8, 3024-7, 05410-3, 3016-3 ####[facility] LABCLIA [id number] [address] [address] [place] Calcium [Mass/Vol] 10.0 mg/dL Normal 8.5-10.2 [facility] Comment on above: Order Comment: Speci men Type: BLOOD SPECIMENOrdering Facility: [facility] Address: [address] [place] [address] Performed By: #### 2 4323-8, 3024-7, 63410-4, 3016-3 ####[facility] LABCLIA [id number] [address] [address] [place] Chloride [Moles/Vol] 108 mmol/L High 98-107 [facility] Comment on above: Order Comment: Speci men Type: BLOOD SPECIMENOrdering Facility: [facility] Address: [address] [place] [address] Performed By: #### 2 4323-8, 3024-7, 38417-8, 6-3 ####[facility] LABIA [id number] [address] [address] [place] CO2 [Moles/Vol] 20 mmol/L Low 22-30 [facility] Comment on above: Order Comment: Speci men Type: BLOOD SPECIMENOrdering Facility: [facility] Address: [address] [place] [address] Performed By: #### 2 4323-8, 3024-7, 20308-6, 6-3 ####[facility] LABCLIA [id number] [address] [address] [place] Creatinine [Mass/Vol] 1.11 mg/dL High 0.58-0.96 [facility] Comment on above: Order Comment: Speci men Type: BLOOD SPECIMENOrdering Facility: [facility] Address: [address] [place] [address] Performed By: #### 2 4323-8, 3024-7, 87831-9, 3016-3 ####[facility] LABCLIA [id number] [place] [address] [place] Creatinine and Glomerular filtration rate.predicted panel (S/P/Bld) 53 mL/min/1.73m??? Low >=60 [facility] Comment on above: Order Comment: Johana jarvis Type: BLOOD SPECIMENOrdering Facility: [facility] Address: [address] [place] [address] Result Comment: Elena mated Glomerular Filtration Rate [...] GFR. Performed By: #### 2 4323-8, 3024-7, 38439-4, 3016-3 ####[facility] LABCLIA [id number] [place] [address] [place] Glucose [Mass/Vol] 79 mg/dL Normal 74-99 [facility] Comment on above: Order Comment: Johana jarvis Type: BLOOD SPECIMENOrdering Facility: [facility] Address: [address] [place] [address] Result Comment: The [place] Diabetes Association (ADA) provides guidance for cutoff [...] Standards of Medical Care in Diabetes 2016, [place] Diabetes Association. Diabetes Care. 2016.39(Suppl 1). Performed By: #### 2 4323-8, 3024-7, 01903-9, 3016-3 ####[facility] LABCLIA [id number] [address] [address] [place] Potassium [Moles/Vol] 4.3 mmol/L Normal 3.7-5.1 [facility] Comment on above: Order Comment: Speci men Type: BLOOD SPECIMENOrdering Facility: [facility] Address: [address] [place] [address] Performed By: #### 2 4323-8, 3024-7, 83982-8, 3016-3 ####[facility] LABIA [id number] [address] [address] [place] Protein [Mass/Vol] 6.6 g/dL Normal 6.3-8.0 [facility] Comment on above: Order Comment: Speci men Type: BLOOD SPECIMENOrdering Facility: [facility] Address: [address] [place] [address] Performed By: #### 2 4323-8, 3024-7, 65004-2, 6-3 ####[facility] [id number] [place] [id number] [place] Sodium [Moles/Vol] 144 mmol/L Normal 136-144 [facility] Comment on above: Order Comment: Speci men Type: BLOOD SPECIMENOrdering Facility: [facility] Address: [address] [place] [address] Performed By: #### 2 4323-8, 3024-7, 48884-6, 6-3 ####[facility] LABIA [id number] [address] [address] [place] Urea nitrogen [Mass/Vol] 51 mg/dL High 7-21 [facility] Comment on above: Order Comment: Speci men Type: BLOOD SPECIMENOrdering Facility: [facility] Address: [address] [place] [address] Performed By: #### 2 4323-8, 3024-7, 45512-8, 3016-3 ####[facility] LABCLIA [id number] [place] [address] [place] HbA1c (Bld)on 12-01-2024 Average glucose Estimated from glycated hemoglobin (Bld) [Mass/Vol] 126 mg/dL Normal [facility] Comment on above: Order Comment: Johana jarvis Type: BLOOD SPECIMEN [facility] Address: [address] [place] [address] Result Comment: eAG: (Estimated average glucose) is a calculated value from HgbA1c and is printing supplies sales representative of the average blood glucose level in the last 2-3 month period. Performed By: #### 5 5454-3 #### [facility] CLIA [id number] [address] [place] [address] STATES [place] [facility] HbA1c (Bld) [Mass fraction] 6.0 % High 4.3-5.6 [facility] Comment on above: Order Comment: Johana jarvis Type: BLOOD SPECIMEN [facility] Address: [address] [place] [address] Result Comment: [place] Diabetes Association guidelines indicate that patients with HgbA1c in the range 5.7-6.4% are at increased risk for development of diabetes, and intervention by lifestyle modification may be beneficial. HgbA1c greater or equal to 6.5% is considered diagnostic of diabetes. Performed By: #### 5 5454-3 #### [facility] CLIA [id number] [address] [place] [address] [place] Lipid 1996 panelon 5 Cholesterol [Mass/Vol] 138 mg/dL Normal <200 [facility] Comment on above: Order Comment: Johana jarvis Type: BLOOD SPECIMENOrdering Facility: [facility] Address: [address] [place] [address] Result Comment: <200 mg/dL, Desirable 200-239 mg/dL, Borderline high >239 mg/dL, High Performed By: #### 2 4323-8, 3024-7, 92227-7, 3016-3 ####[facility] LABCLIA [id number] [address] [place] Cholesterol in HDL [Mass/Vol] 44 mg/dL Normal >39 [facility] Comment on above: Order Comment: Johana matheus Type: BLOOD SPECIMENOrdering Facility: [facility] Address: [address] [place] [address] Result Comment: 40-5 9 mg/dL, Acceptable >59 mg/dL, High: Negative risk factor for coronary heart disease <40 mg/dL, Low: Positive risk factor for coronary heart disease Performed By: #### 2 4323-8, 3024-7, 25877-0, 3016-3 ####[facility] LABCLIA [id number] [address] Cholesterol in LDL [Mass/Vol] 64 mg/dL Normal <100 [facility] Comment on above: Order Comment: Johana jarvis Type: BLOOD SPECIMENOrdering Facility: [facility] Address: [address] [place] [address] Result Comment: <100 mg/dL, Optimal 100-129 mg/dL, Near optimal/above optimal 130-159 mg/dL, Borderline high 160-189 mg/dL, High >189 mg/dL, Very high Secondary prevention optimal LDL Cholesterol levels are recommended to be < 70 mg/dL Performed By: #### 2 4323-8, 3024-7, 83849-8, 3016-3 ####[facility] LABIA [id number] [address] OF [facility] Cholesterol in LDL/Cholesterol in HDL [Mass ratio] 1.45 {ratio} Normal <2.54 [facility] Comment on above: Order Comment: Johana matheus Type: BLOOD SPECIMENOrdering Facility: [facility] Address: [address] [place] [address] Result Comment: Vlad oakes: 1. National Cholesterol Education Program ATP III Guideline At-A-Glance Quick Desk Reference: National Heart, Lung, and Blood [place]. National Institutes of Health. 2001: NIH Publication No. 01-3305. 2. An International Atherosclerosis Society position paper: global recommendations for the management of dyslipidemia: executive summary, Atherosclerosis. 2014: 232(2):410-413. Performed By: #### 2 4323-8, 3024-7, 44541-8, 6-3 ####[facility] LABCLIA [id number] [address] [address] [place] Cholesterol in VLDL [Mass/Vol] 30 mg/dL High <30 [facility] Comment on above: Order Comment: Speci men Type: BLOOD SPECIMENOrdering Facility: [facility] Address: [address] [place] [address] Performed By: #### 2 4323-8, 3023-7, 53128-6, 3015-3 ####[facility] LABCLIA [id number] [place] [address] [place] Cholesterol non HDL [Mass/Vol] 94 mg/dL Normal <130 [facility] Comment on above: Order Comment: Speci men Type: BLOOD SPECIMENOrdering Facility: [facility] Address: [address] [place] [address] Result Comment: <130 mg/dL, Optimal 130-159 mg/dL, Near optimal/above optimal 160-189 mg/dL, Borderline high 190-219 mg/dL, High >219 mg/dL, Very high Secondary prevention optimal non HDL Cholesterol levels are recommended to be <100 mg/dL Performed By: #### 2 4323-8, 3023-7, 26393-4, 3015-3 ####[facility] LABCLIA [id number] [address] [address] [place] Cholesterol.total/Chol esterol in HDL [Mass ratio] 3.14 {ratio} Normal <5.10 [facility] Comment on above: Order Comment: Elizabethi men Type: BLOOD SPECIMENOrdering Facility: [facility] Address: [address] [place] [id number] Performed By: #### 2 4323-8, 4-7, 75084-2, 3015-3 ####[facility] LABCLIA [id number] [place] [address] [place] FASTING TIME 14 hrs Normal [facility] Comment on above: Order Comment: Speci men Type: BLOOD SPECIMENOrdering Facility: [facility] Address: [address] [place] [address] Performed By: #### 2 4323-8, 3024-7, 80922-3, 3016-3 ####[facility] LABCLIA [id number] [place] [address] [place] Triglyceride [Mass/Vol] 151 mg/dL High <150 [facility] Comment on above: Order Comment: Speci men Type: BLOOD SPECIMENOrdering Facility: [facility] Address: [address] [place] [address] Result Comment: <150 mg/dL, Normal 150-199 mg/dL, Borderline high 200-499 mg/dL, High >499 mg/dL, Very high Performed By: #### 2 4323-8, 3024-7, 40577-8, 3016-3 ####[facility] LABCLIA [id number] [place] [address] [place] T4 Free SerPl-mCncon 025 Free T4 [Mass/Vol] 2.0 ng/dL High 0.9-1.7 [facility] Comment on above: Order Comment: Speci men Type: BLOOD SPECIMENOrdering Facility: [facility] Address: [address] [place] [address] Performed By: #### 2 4323-8, 3024-7, 23828-0, 3016-3 ####[facility] LABCLIA [id number] [place] [address] [place] TSH SerPl-aCncon 12-01-2024 TSH Qn 0.005 m[IU]/L Low 0.270-4.200 [facility] Comment on above: Order Comment: Speci men Type: BLOOD SPECIMENOrdering Facility: [facility] Address: [address] [place] [address] Performed By: #### 2 4323-8, 3024-7, 95325-4, 3016-3 ####[facility] LABCLIA [id number] [facility] [address] [place] Vit B12 SerPl-ncon 01-13-2 025 Cobalamin (Vitamin B12) [Mass/Vol] 1268 pg/mL High 232-1245 [facility] Comment on above: Order Comment: Speci men Type: BLOOD SPECIMEN [facility] Address: [address] [place] [address] Performed By: #### 2 132-9 #### [facility] CLIA [id number] [address] [place] [address] [place] [address] [place] CNPNon 09-10-2024 CNPN Telephone (FAMPWS) -------- GLEY NEWMAN ([id number]) 1950 F Date Time Provider Department 09/10/24 RISHI VASQUEZ [facility] During your visit today, we recorded the [...] out to provider. Requests call back at [phone] with provider response. GORGE Bo Jordan L, [...] Fully Assessed Reason for Visit: Patient Question [9157] Prescriptions as of 09/15/2024 - gabapentin (NEURONTIN) [...] 1 tablet by mouth once daily. - Qfxsqdat-Shpw-Bbs-Folic Acid 18-0.4 mg tab Take 1 tablet [...] [L72.3, L08.9] 02/26/2019 Coronary artery disease involving [place] heart *05/28/2019 Abnormal urine odor [R82.90] 05/28/2019 [...] Encounter Status:Closed by MEAGAN MARTINEZ on 09/15/24 [facility] 08-18-2024 CNPN Telephone (FAMPWS) -------- GELY NEWMAN ([id number]) 1950 F Date Time Provider Department 08/18/24 RISHI VASQUEZ [facility] During your visit today, we recorded the following information about you: Meagan Martinez MA 08/18/2024 8:48 AM Signed Pt wrote into the office via [employer] on 08/16/24 with questions regarding medications. Please review message below and advise. Meagan Martinez MA Pt message: MANY YEARS AGO, 2012 TO BE EXACT, YOU PUT ME ON [...] Fully Assessed Reason for Visit: Patient Question [1500] Cmt: Fish oil - [place] 3 Prescriptions as of 08/19/2024 - gabapentin [...] 1 tablet by mouth once daily. - Csyijahb-Nftg-Kwc-Folic Acid 18-0.4 mg tab Take 1 tablet [...] [L72.3, L08.9] 02/26/2019 Coronary artery disease involving [place] heart *05/28/2019 Abnormal urine odor [R82.90] 05/28/2019 [...] Encounter Status:Closed by LEATHA LONG on 08/19/24 Normal [facility] CNPNon 08-08-2024 CNPN Telephone (FAMPWS) -------- GELY NEWMAN ([id number]) 1950 F Date Time Provider Department 08/08/24 RISHI VASQUEZ [facility]WS During your visit today, [...] NAME OF THE MEDICATION IS ISCHROLBARSA. THE [employer] SAID IT IS A STEROID. WHAT DO YOU THINK. I AM GOING TO CALL AND CANCEL THE APPOINTMENT FOR SUNDAY AND RESCHEDULE FOR ANOTHER DAY AND HOPE THAT I HEAR FROM YOU. THANK YOU FOR YOUR TIME AND UNDERSTANDING ON THE ISSUE. WILL AWAIT YOUR REPLY Rishi Hernández, DO 08/12/2024 4:54 PM Signed Patient has some chronic kidney disease stage 3, which is from her diabetes. She needs to make sure that the specialist doesn't think this will be a concern. Her GFR is 48 Rishi Vasquez DO Nasim López LPN 08/12/2024 4:58 PM Signed Pt. informed [...] 1 tablet by mouth once daily. - Dkwhdljb-Ueco-Ioe-Folic Acid 18-0.4 mg tab Take 1 tablet [...] [L72.3, L08.9] 02/26/2019 Coronary artery disease involving [place] heart *05/28/2019 Abnormal urine odor [R82.90] 05/28/2019 Stage 3 chronic kidney disease (HCC) [N18.30] 12/03/2019 Fatigue [R53.83] more content not included)... Normal [facility] Pelvis (Routine)on Pelvis (Routine) Normal [facility] Shoulder min 2 Viewson 06-19 Shoulder min 2 Views Normal [facility] CNPNon 06-13-2024 [facility] TRENTGELY Lawrence ([id number]) 1950 F Date Time Provider Department 06/13/24 RISHI VASQUEZPJOHNY During your visit today, we recorded the following information about you: Nasim López LPN 06/13/2024 11:19 AM Signed Needs referral faxed to [facility] for Pain Management. This has been faxed. [...] 1 tablet by mouth once daily. - Tlvgodvi-Wnpr-Dsw-Folic Acid 18-0.4 mg tab Take 1 tablet [...] [L72.3, L08.9] 02/26/2019 Coronary artery disease involving [place] heart *05/28/2019 Abnormal urine odor [R82.90] 05/28/2019 [...] by NASIM LÓPEZ LPN on 06/13/24 Normal [facility] CNCOon 06-04-2024 CNCO HNO ID: [id number] Author: COORDINATOR, MAMMOGRAPHY, ? Service: ? Author Type: Physician Type: Letter Filed: 06/04/2024 14:01 Note Text: June 04, 2024 PID: [id number] Gely Newman [address] [place] [address] Dear Ms. Newman, We are pleased to [...] report will be kept on file at [facility] as part of your permanent medical record and are available for your continuing care. Thank you for allowing us to help in meeting your health care needs. Sincerely, Dr. Monteiro Interpreting Radiologist [facility] (Normal over 40) Normal [facility] CNOVon 06-04-2024 CNOV Office Visit (FAMPWS ) -------- GELY NEWMAN ([id number]) 1950 F Date Time Provider Department 06/04/24 9:40 AM RISHI VASQUEZPWS During your visit today, we [...] mellitus (HCC) Coronary artery disease Dr. Ch Asphalt Patcher, 90% blockage- unable to do stenting Diabetes mellitus type 2 in obese Diabetic feet (HCC) Gangrene (HCC) 2012 RIGHT FOOT Hypertension Mild non proliferative diabetic retinopathy (HCC) 06/11/2013 Both eyes, Dr. Ortiz [facility]-03/25/2020 left mild, right moderate Multiple thyroid nodules last US 01/2015 Peripheral artery disease (HCC) due to Diabetes mellitus, Dr. Kwaku Moscoso Rotator cuff syndrome of left shoulder Dr. Deluna [facility] PAST SURGICAL HISTORY Procedure Laterality Date [...] 04-08-13 ROTATOR CUFF REPAIR 03/11[facility]14 [facility]. [facility]DL PEL/LXTR ART [...] Allergen React (more content not included)... Normal [facility]-04[facility]20[facility] -------- GELY NEWMAN ([id number]) 1950 F Date Time Provider Department 06/04/24 [facility] During your visit today, we recorded the [...] 1 tablet by mouth once daily. - Cqnfluga-Ormj-Mku-Folic Acid 18-0.4 mg tab Take 1 tablet [...] [L72.3, L08.9] 02/26/2019 Coronary artery disease involving [place] heart *05/28/2019 Abnormal urine odor [R82.90] 05/28/2019 [...] Status:Closed by KEISHA CORONADO on 06/04/24 Normal [facility] ALEJANDRO SCREENING W TOMOon 06-03 ALEJANDRO SCREENING W BNE * * *Final Report* * * DATE OF EXAM: Jun 03 2024 9:42AM WRW [id number] - ALEJANDRO SCREENING W BNE / PROCEDURE REASON: Encounter for screening mammogram for malignant neoplasm of breast * * * * Physician Interpretation * * * * RESULT: #[id number] - ALEJANDRO SCREENING W BEN BILATERAL DIGITAL [...] mammogram, 07/10/2023 mammogram, and 06/05/2022 mammogram - [facility]. There are scattered areas of fibroglandular density. No significant masses, calcifications, or other findings are seen in either breast. There has been no significant interval change. IMPRESSION: NEGATIVE There is no mammographic evidence of malignancy. A 1 year screening mammogram is recommended. Wil newman/penthu:06/04/2024 14:01:13 White Metal Caster(s): Elizabeth Sandoval, [facility] letter sent: Normal over 40 Mammogram BI-RADS: [...] Health, Family Medicine, and Medical/Surgical Oncology, the [facility] has carefully reviewed the data and reached [...] their providers when to stop screening mammograms. [employer] Order Clerk: Marcelino Transcribe Date/Time: Jun 03 2024 9:23A Dictated by: WIL MONTEIRO MD This examination was interpreted and the report reviewed and electronically signed by: WIL MONTEIRO MD on Jun 04 2024 2:01PM EST [id number] Normal [facility] 25([place])D3 [facility] 25-hydroxyvitamin D3 [Mass/Vol] 72.8 ng/mL Normal 31.0-80.0 [facility] Comment on above: Order Comment: Speclisa jarivs Type: BLOOD SPECIMEN [facility] Address: [address] [place] [address] Result Comment: Clas sification of 25 [place] Vitamin D status: Deficiency/Insufficiency: < or = 30 ng/ml. Sufficiency/Optimal Levels: 31-80 ng/mL Toxicity: > 100 ng/mL. Test performed by chemiluminescent immunoassay. Performed By: #### 2 132-9 #### [facility] CLIA [id number] [address] [place] [address] STATES [place] [facility] CBC W Auto Differential pane l (Bld)on 05-30-2024 Basophils (Bld) [#/Vol] 0.06 10*3/uL Normal <0.11 [facility] Comment on above: Order Comment: Johana jarvis Type: BLOOD SPECIMEN [facility] Address: [address] [place] [address] Performed By: #### 2 132-9 #### [facility] CLIA [id number] [address] [place] [address] [place] Basophils/100 WBC (Bld) 0.8 % Normal [facility] Comment on above: Order Comment: Speci men Type: BLOOD SPECIMEN [facility] Address: [address] [place] [address] Performed By: #### 2 132-9 #### [facility] CLIA [id number] [address] [place] [address] [place] Differential cell count method Nom (Bld) Auto Normal [facility] Comment on above: Order Comment: Speci men Type: BLOOD SPECIMEN [facility] Address: [address] [place] [address] Performed By: #### 2 132-9 #### [facility] CLIA [id number] [address] [place] [address] [place] Eosinophils (Bld) [#/Vol] 0.26 10*3/uL Normal <0.46 [facility] Comment on above: Order Comment: Speci men Type: BLOOD SPECIMEN [facility] Address: [address] [place] [address] Performed By: #### 2 132-9 #### [facility] CLIA [id number] [address] [place] [address] [place] Eosinophils/100 WBC (Bld) 3.4 % Normal [facility] Comment on above: Order Comment: Speci men Type: BLOOD SPECIMEN [facility] Address: [address] [place] [address] Performed By: #### 2 132-9 #### [facility] CLIA [id number] [address] [place] [address] [place] Erythrocyte distribution width (RBC) [Ratio] 12.1 % Normal 11.5-15.0 [facility] Comment on above: Order Comment: Speci men Type: BLOOD SPECIMEN [facility] Address: [address] [place] [address] Performed By: #### 2 132-9 #### [facility] CLIA [id number] [address] [place] [address] [place] Hematocrit (Bld) [Volume fraction] 38.4 % Normal 36.0-46.0 [facility] Comment on above: Order Comment: Speci men Type: BLOOD SPECIMEN [facility] Address: [address] [place] [address] Performed By: #### 2 132-9 #### [facility] CLIA [id number] [address] [place] [address] [place] Hemoglobin (Bld) [Mass/Vol] 12.3 g/dL Normal 11.5-15.5 [facility] Comment on above: Order Comment: Speci men Type: BLOOD SPECIMEN [facility] Address: [address] [place] [address] Performed By: #### 2 132-9 #### [facility] CLIA [id number] [address] [place] [address] [place] Immature granulocytes (Bld) [#/Vol] 10*3/uL Normal <0.10 [facility] Comment on above: Order Comment: Speci men Type: BLOOD SPECIMEN [facility] Address: [address] [place] [address] Performed By: #### 2 132-9 #### [facility] CLIA [id number] [address] [place] [address] [place] Immature granulocytes/100 WBC (Bld) 0.1 % Normal [facility] Comment on above: Order Comment: Speci men Type: BLOOD SPECIMEN Ordering Facility: [facility] Address: [address] [place] [address] Performed By: #### 2 132-9 #### [facility] CLIA [id number] [address] [place] [address] [place] Lymphocytes (Bld) [#/Vol] 1.71 10*3/uL Normal 1.00-4.00 [facility] Comment on above: Order Comment: Speci men Type: BLOOD SPECIMEN Ordering Facility: [facility] Address: [address] [place] [address] Performed By: #### 2 132-9 #### [facility] CLIA [id number] [address] [place] [address] [place] Lymphocytes/100 WBC (Bld) 22.6 % Normal [facility] Comment on above: Order Comment: Speci men Type: BLOOD SPECIMEN Ordering Facility: [facility] Address: [address] [place] [address] Performed By: #### 2 132-9 #### [facility] CLIA [id number] [address] [place] [address] [place] MCH (RBC) [Entitic mass] 31.1 pg Normal 26.0-34.0 [facility] Comment on above: Order Comment: Speci men Type: BLOOD SPECIMEN Ordering Facility: [facility] Address: [address] [place] [address] Performed By: #### 2 132-9 #### [facility] CLIA [id number] [address] [place] [address] [place] MCHC (RBC) [Mass/Vol] 32.0 g/dL Normal 30.5-36.0 [facility] Comment on above: Order Comment: Speci men Type: BLOOD SPECIMEN Ordering Facility: [facility] Address: [address] [place] [address] Performed By: #### 2 132-9 #### [facility] CLIA [id number] [address] [place] [address] [place] MCV (RBC) [Entitic vol] 97.0 fL Normal 80.0-100.0 [facility] Comment on above: Order Comment: Speci men Type: BLOOD SPECIMEN Ordering Facility: [facility] Address: [address] [place] [address] Performed By: #### 2 132-9 #### [facility] CLIA [id number] [address] [place] [address] [place] Monocytes (Bld) [#/Vol] 0.68 10*3/uL Normal <0.87 [facility] Comment on above: Order Comment: Speci men Type: BLOOD SPECIMEN Ordering Facility: [facility] Address: [address] [place] [address] Performed By: #### 2 132-9 #### [facility] CLIA [id number] [address] [place] [address] [place] Monocytes/100 WBC (Bld) 9.0 % Normal [facility] Comment on above: Order Comment: Speci men Type: BLOOD SPECIMEN Ordering Facility: [facility] Address: [address] [place] [address] Performed By: #### 2 132-9 #### [facility] CLIA [id number] [address] [place] [address] [place] Neutrophils (Bld) [#/Vol] 4.86 10*3/uL Normal 1.45-7.50 [facility] Comment on above: Order Comment: Speci men Type: BLOOD SPECIMEN Ordering Facility: [facility] Address: [address] [place] [address] Performed By: #### 2 132-9 #### [facility] CLIA [id number] [address] [place] [address] [place] Neutrophils/100 WBC (Bld) 64.1 % Normal [facility] Comment on above: Order Comment: Speci men Type: BLOOD SPECIMEN Ordering Facility: [facility] Address: [address] [place] [address] Performed By: #### 2 132-9 #### [facility] CLIA [id number] [address] [place] [address] [place] Nucleated RBC (Bld) [#/Vol] 10*3/uL Normal <0.01 [facility] Comment on above: Order Comment: Speci men Type: BLOOD SPECIMEN Ordering Facility: [facility] Address: [address] [place] [address] Performed By: #### 2 132-9 #### [facility] CLIA [id number] [address] [place] [address] [place] Nucleated RBC/100 WBC (Bld) [Ratio] 0.0 /100 WBC Normal [facility] Comment on above: Order Comment: Speci men Type: BLOOD SPECIMEN Ordering Facility: [facility] Address: [address] [place] [address] Performed By: #### 2 132-9 #### [facility] CLIA [id number] [address] [place] [address] [place] Platelet mean volume (Bld) [Entitic vol] 11.3 fL Normal 9.0-12.7 [facility] Comment on above: Order Comment: Speci men Type: BLOOD SPECIMEN Ordering Facility: [facility] Address: [address] [place] [address] Performed By: #### 2 132-9 #### [facility] CLIA [id number] [address] [place] [address] [place] Platelets (Bld) [#/Vol] 191 10*3/uL Normal 150-400 [facility] Comment on above: Order Comment: Speci men Type: BLOOD SPECIMEN Ordering Facility: [facility] Address: [address] [place] [address] Performed By: #### 2 132-9 #### [facility] CLIA [id number] [address] [place] [address] [place] RBC (Bld) [#/Vol] 3.96 10*6/uL Normal 3.90-5.20 [facility] Comment on above: Order Comment: Speci men Type: BLOOD SPECIMEN Ordering Facility: [facility] Address: [address] [place] [address] Performed By: #### 2 132-9 #### [facility] CLIA [id number] [address] [place] [address] [place] WBC (Bld) [#/Vol] 7.58 10*3/uL Normal 3.70-11.00 [facility] Comment on above: Order Comment: Speci men Type: BLOOD SPECIMEN Ordering Facility: [facility] Address: [address] [place] [address] Performed By: #### 2 132-9 #### [facility] CLIA [id number] [address] [place] [address] [place] Comprehensive metabolic 2000 panelon 05-30-2024 Albumin [Mass/Vol] 4.1 g/dL Normal 3.9-4.9 [facility] Comment on above: Order Comment: Speci men Type: BLOOD SPECIMEN Ordering Facility: [facility] Address: [address] [place] [address] Performed By: #### 2 132-9 #### [facility] CLIA [id number] [address] [place] [address] [place] ALP [Catalytic activity/Vol] 62 U/L Normal 34-123 [facility] Comment on above: Order Comment: Speci men Type: BLOOD SPECIMEN Ordering Facility: [facility] Address: [address] [place] [address] Performed By: #### 2 132-9 #### [facility] CLIA [id number] [address] [place] [address] [place] ALT [Catalytic activity/Vol] 13 U/L Normal 7-38 [facility] Comment on above: Order Comment: Speci men Type: BLOOD SPECIMEN Ordering Facility: [facility] Address: [address] [place] [address] Performed By: #### 2 132-9 #### [facility] CLIA [id number] [address] [place] [address] [place] Anion gap [Moles/Vol] 12 mmol/L Normal 8-15 [facility] Comment on above: Order Comment: Speci men Type: BLOOD SPECIMEN Ordering Facility: [facility] Address: [address] [place] [address] Performed By: #### 2 132-9 #### [facility] CLIA [id number] [address] [place] [address] [place] AST [Catalytic activity/Vol] 24 U/L Normal 13-35 [facility] Comment on above: Order Comment: Speci men Type: BLOOD SPECIMEN Ordering Facility: [facility] Address: [address] [place] [address] Performed By: #### 2 132-9 #### [facility] CLIA [id number] [address] [place] [address] [place] Bilirubin [Mass/Vol] 0.4 mg/dL Normal 0.2-1.3 [facility] Comment on above: Order Comment: Speci men Type: BLOOD SPECIMEN Ordering Facility: [facility] Address: [address] [place] [address] Performed By: #### 2 132-9 #### [facility] CLIA [id number] [address] [place] [address] [place] Calcium [Mass/Vol] 10.0 mg/dL Normal 8.5-10.2 [facility] Comment on above: Order Comment: Speci men Type: BLOOD SPECIMEN Ordering Facility: [facility] Address: [address] [place] [address] Performed By: #### 2 132-9 #### [facility] CLIA [id number] [address] [place] [address] [place] Chloride [Moles/Vol] 107 mmol/L Normal 98-107 [facility] Comment on above: Order Comment: Speci men Type: BLOOD SPECIMEN Ordering Facility: [facility] Address: [address] [place] [address] Performed By: #### 2 132-9 #### [facility] CLIA [id number] [address] [place] [address] [place] CO2 [Moles/Vol] 23 mmol/L Normal 22-30 [facility] Comment on above: Order Comment: Speci men Type: BLOOD SPECIMEN Ordering Facility: [facility] Address: [address] [place] [address] Performed By: #### 2 132-9 #### [facility] CLIA [id number] [address] [place] [address] [place] Creatinine [Mass/Vol] 1.20 mg/dL High 0.58-0.96 [facility] Comment on above: Order Comment: Speci men Type: BLOOD SPECIMEN Ordering Facility: [facility] Address: [address] [place] [address] Performed By: #### 2 132-9 #### [facility] CLIA [id number] [address] [place] [address] [place] Creatinine and Glomerular filtration rate.predicted panel (S/P/Bld) 48 mL/min/1.73m??? Low >=60 [facility] Comment on above: Order Comment: Speci men Type: BLOOD SPECIMEN Ordering Facility: [facility] Address: [address] [place] [address] Result Comment: Elena mated Glomerular Filtration Rate [...] GFR. Performed By: #### 2 132-9 #### [facility] CLIA [id number] [address] [place] [address] [place] Glucose [Mass/Vol] 113 mg/dL High 74-99 [facility] Comment on above: Order Comment: Johana jarvis Type: BLOOD SPECIMEN Ordering Facility: [facility] Address: [address] [place], [place] [id number] Result Comment: The [place] Diabetes Association (ADA) provides guidance for cutoff [...] Standards of Medical Care in Diabetes 2016, [place] Diabetes Association. Diabetes Care. 2016.39(Suppl 1). Performed By: #### 2 132-9 #### [facility] CLIA [id number] [address] [place] [address] [place] Potassium [Moles/Vol] 4.7 mmol/L Normal 3.7-5.1 [facility] Comment on above: Order Comment: Johana jarvis Type: BLOOD SPECIMEN Ordering Facility: [facility] Address: [address] [place] [address] Performed By: #### 2 132-9 #### [facility] CLIA [id number] [address] [place] [address] [place] Protein [Mass/Vol] 6.5 g/dL Normal 6.3-8.0 [facility] Comment on above: Order Comment: Elizabethi men Type: BLOOD SPECIMEN Ordering Facility: [facility] Address: [address] [place] [address] Performed By: #### 2 132-9 #### [facility] CLIA [id number] [address] [place] [address] [place] Sodium [Moles/Vol] 142 mmol/L Normal 136-144 [facility] Comment on above: Order Comment: Speci men Type: BLOOD SPECIMEN Ordering Facility: [facility] Address: [address] [place] [address] Performed By: #### 2 132-9 #### [facility] CLIA [id number] [address] [place] [address] [place] Urea nitrogen [Mass/Vol] 38 mg/dL High 7-21 [facility] Comment on above: Order Comment: Johana jarvis Type: BLOOD SPECIMEN Ordering Facility: [facility] Address: [address] [place] [address] Performed By: #### 2 132-9 #### [facility] CLIA [id number] [address] [place] [address] [place] HbA1c (Bld)on 05-30-2024 Average glucose Estimated from glycated hemoglobin (Bld) [Mass/Vol] 131 mg/dL Normal [facility] Comment on above: Order Comment: Johana jarvis Type: BLOOD SPECIMEN Ordering Facility: [facility] Address: [address] [place] [address] Result Comment: eAG: (Estimated average glucose) is a calculated value from HgbA1c and is printing supplies sales representative of the average blood glucose level in the last 2-3 month period. Performed By: #### 2 132-9 #### [facility] CLIA [id number] [address] [place] [address] [place] HbA1c (Bld) [Mass fraction] 6.2 % High 4.3-5.6 [facility] Comment on above: Order Comment: Johana jarvis Type: BLOOD SPECIMEN Ordering Facility: [facility] Address: [address] [place] [address] Result Comment: [place] Diabetes Association guidelines indicate that patients with HgbA1c in the range 5.7-6.4% are at increased risk for development of diabetes, and intervention by lifestyle modification may be beneficial. HgbA1c greater or equal to 6.5% is considered diagnostic of diabetes. Performed By: #### 2 132-9 #### [facility] CLIA [id number] [address] [place], [place] [address] [place] Lipid 1996 panelon 4 Cholesterol [Mass/Vol] 151 mg/dL Normal <200 [facility] Comment on above: Order Comment: Speci men Type: BLOOD SPECIMEN Ordering Facility: [facility] Address: [address] [place] [address] Result Comment: <200 mg/dL, Desirable 200-239 mg/dL, Borderline high >239 mg/dL, High Performed By: #### 2 132-9 #### [facility] CLIA [id number] [address] [place] [address] [place] Cholesterol in HDL [Mass/Vol] 47 mg/dL Normal >39 [facility] Comment on above: Order Comment: Elizabethi men Type: BLOOD SPECIMEN Ordering Facility: [facility] Address: [address] [place] [address] Result Comment: 40-5 9 mg/dL, Acceptable >59 mg/dL, High: Negative risk factor for coronary heart disease <40 mg/dL, Low: Positive risk factor for coronary heart disease Performed By: #### 2 132-9 #### [facility] CLIA [id number] [address] [place] [address] [place] Cholesterol in LDL [Mass/Vol] 71 mg/dL Normal <100 [facility] Comment on above: Order Comment: Speci men Type: BLOOD SPECIMEN Ordering Facility: [facility] Address: [address] [place] [address] Result Comment: <100 mg/dL, Optimal 100-129 mg/dL, Near optimal/above optimal 130-159 mg/dL, Borderline high 160-189 mg/dL, High >189 mg/dL, Very high Secondary prevention optimal LDL Cholesterol levels are recommended to be < 70 mg/dL Performed By: #### 2 132-9 #### [facility] CLIA [id number] [address] [place] [address] [place] Cholesterol in LDL/Cholesterol in HDL [Mass ratio] 1.51 {ratio} Normal <2.54 [facility] Comment on above: Order Comment: Speci men Type: BLOOD SPECIMEN Ordering Facility: [facility] Address: [address] [place] [address] Result Comment: Vlad oakes: 1. National Cholesterol Education Program ATP III Guideline At-A-Glance Quick Desk Reference: National Heart, Lung, and Blood [place]. National Institutes of Health. 2001: NIH Publication No. 01-3305. 2. An International Atherosclerosis Society position paper: global recommendations for the management of dyslipidemia: executive summary, Atherosclerosis. 2014: 232(2):410-413. Performed By: #### 2 132-9 #### [facility] CLIA [id number] [address] [place] [address] [place] Cholesterol in VLDL [Mass/Vol] 33 mg/dL High <30 [facility] Comment on above: Order Comment: Johana jarvis Type: BLOOD SPECIMEN Ordering Facility: [facility] Address: [address] [place] [address] Performed By: #### 2 132-9 #### [facility] CLIA [id number] [address] [place] [address] [place] Cholesterol non HDL [Mass/Vol] 104 mg/dL Normal <130 [facility] Comment on above: Order Comment: Johana jarvis Type: BLOOD SPECIMEN Ordering Facility: [facility] Address: [address] [place] [address] Result Comment: <130 mg/dL, Optimal 130-159 mg/dL, Near optimal/above optimal 160-189 mg/dL, Borderline high 190-219 mg/dL, High >219 mg/dL, Very high Secondary prevention optimal non HDL Cholesterol levels are recommended to be <100 mg/dL Performed By: #### 2 132-9 #### [facility] CLIA [id number] [address] [place] [address] [place] Cholesterol.total/Chol esterol in HDL [Mass ratio] 3.21 {ratio} Normal <5.10 [facility] Comment on above: Order Comment: Johana matheus Type: BLOOD SPECIMEN Ordering Facility: [facility] Address: [address] [place] [address] Performed By: #### 2 132-9 #### [facility] CLIA [id number] [address] [place] [address] [place] FASTING TIME 13 hrs Normal [facility] Comment on above: Order Comment: Speci men Type: BLOOD SPECIMEN Ordering Facility: [facility] Address: [address] [place] [address] Performed By: #### 2 132-9 #### [facility] CLIA [id number] [address] [place] [address] [place] Triglyceride [Mass/Vol] 165 mg/dL High <150 [facility] Comment on above: Order Comment: Speci men Type: BLOOD SPECIMEN Ordering Facility: [facility] Address: [address] [place] [address] Result Comment: <150 mg/dL, Normal 150-199 mg/dL, Borderline high 200-499 mg/dL, High >499 mg/dL, Very high Performed By: #### 2 132-9 #### [facility] CLIA [id number] [address] [place] [address] [place] T3Free SerPl-mCncon 05-30-20 24 Free T3 [Mass/Vol] 3.7 pg/mL Normal 2.3-4.1 [facility] Comment on above: Order Comment: Speci men Type: BLOOD SPECIMEN Ordering Facility: [facility] Address: [address] [place] [address] Performed By: #### 2 132-9 #### [facility] CLIA [id number] [address] [place] [address] [place] T4 Free SerPl-mCncon 024 Free T4 [Mass/Vol] 2.0 ng/dL High 0.9-1.7 [facility] Comment on above: Order Comment: Speci men Type: BLOOD SPECIMENOrdering Facility: [facility] Address: [address] [place] [address] Performed By: #### 3 024-7, 50289-5, 3051-0, 11204-2 ####[facility] [id number] [place] [address] [place] TSH SerPl-aCncon 05-30-2024 TSH Qn 0.007 m[IU]/L Low 0.270-4.200 [facility] Comment on above: Order Comment: Speci men Type: BLOOD SPECIMEN Ordering Facility: [facility] Address: [address] [place] [address] Performed By: #### 2 132-9 #### [facility] CLIA [id number] [address] [place], [place] [address] [address] [place] Gabriel 05-19-2024 CNPN Telephone (FAMPWS) -------- GELY NEWMAN ([id number]) 1950 F Date Time Provider Department 05/19/24 [facility] During your visit today, we recorded the following information about you: Meagan Martinez MA 05/19/2024 9:19 AM Signed Pt sent in Immedia message asking for lab orders for her upcoming appt 06/04/24. She would like these ordered so she can schedule lab appt. Please notify her once these have been ordered. Labs pended, please review and file. ALFONSO Nicole Alyson, APRN.[employer]AKE CUTTER OPERATOR 05/19/2024 11:31 AM Signed Labs are signed [...] [R53.83] Order(s):LIPID PANEL BASIC [SQLIPB] Order #: [id number] FUTURE COMPREHENSIVE METABOLIC PANEL [SQCMP] Order #: [id number] FUTURE THYROID STIMULATING HORMONE [SQTSH] Order #: [id number] FUTURE T3, FREE [SQFREET3] Order #: [id number] FUTURE T4 FREE/FREE THYROXINE [SQFT4] Order #: [id number] FUTURE VITAMIN D 25 HYDROXY [SQVITD] Order #: [id number] FUTURE COMPLETE BLOOD COUNT AND DIFFERENTIAL [SQCBCDIF] Order #: [id number] FUTURE HEMOGLOBIN A1C [QKVRF0E] Order #: [id number] FUTURE Prescriptions as of 05/19/2024 - glimepiride [...] 1 tablet by mouth once daily. - Zngqmrog-Nkuz-Fru-Folic Acid 18-0.4 mg tab Take 1 tablet [...] Anemia [D (more content not included)... Normal [facility] XR Lumbar spine 3 Viewson * * [...] calcifications. Mild levoscoliosis DIVISION OF RADIOLOGY Provider, [facility] - 12/10/2023 * * *Final [...] DESCRIBED. PROGRESSION PRIOR STUDY. NO ACUTE ABNORMALITY [employer] Order Clerk: SANDRA Transcribe Date/Time: Dec 10 2023 1:03P Dictated by : CHASE SUE MD This examination was interpreted and the report reviewed and electronically signed by: CHASE SUE MD on Dec 10 2023 1:17PM EST [facility] Radiology Study observation (narrative) [facility] XR Lumbar spine 3 ViewsOrder ed By: [facility] Provider on 12-10-2023 [facility] Anaerobic cultureOrdered By: Rishi Vasquez on 08-16-2023 Bacteria identified Anaer cx Nom (Unsp spec) No anaerobic bacteria isolated. [facility] Bacteria identified Cx Nom ( Wound)Ordered By: Rishi Vasquez on 08-16-2023 Wound Culture Meth. resistant Stap h. aureus [facility] Gram stain for investigation of transfusion reactionOrdered By: Rishi Vasquez on 08-16-2023 Microscopic observation Gram stain Nom (Unsp spec) [facility] Anaerobic cultureOrdered By: Rishi Vasquez on 07-27-2023 Bacteria identified Anaer cx Nom (Unsp spec) No anaerobic bacteria isolated. [facility] Bacteria identified Cx Nom ( Wound)Ordered By: Rishi Vasquez on 07-27-2023 Wound Culture Meth. resistant Stap h. aureus [facility] Gram stain for investigation of transfusion reactionOrdered By: Rishi Vasquez on 07-27-2023 Microscopic observation Gram stain Nom (Unsp spec) [facility] Anaerobic cultureOrdered By: Rishi Vasquez on 07-26-2023 Bacteria identified Anaer cx Nom (Unsp spec) No anaerobic bacteria isolated. [facility] Bacteria identified Cx Nom ( Wound)Ordered By: Rishi Vasquez on 07-26-2023 Wound Culture Meth. resistant Stap h. aureus [facility] Gram stain for investigation of transfusion reactionOrdered By: Rishi Vasquez on 07-26-2023 Microscopic observation Gram stain Nom (Unsp spec) [facility] ALEJANDRO CONTRERAS RIGHTon 06-20 [facility] US BREAST LTD RIGHTon 2022 [facility] UA DIP, URINE (POC)on 2022 BILIRUBIN UA (POCT) Negative Negative [facility] CLARITY UA (POCT) Clear [facility] COLOR UA (POCT) Yellow [facility] GLUCOSE UA (POCT) Negative Negative mg/dL [facility] HEMOGLOBIN/BLOOD UA (POCT) Trace-intact Abnormal Negative [facility] KETONE UA (POCT) Negative Negative mg/dL [facility] LEUKOCYTES UA (POCT) Large [facility] NITRITE [facility] (POCT) Positive Abnormal Negative [facility] PH UA (POCT) 7.0 4.5 - 8.0 [facility] Protein Ql (U) 30 mg/dL Abnormal Negative mg/dL [facility] SPECIFIC GRAVITY UA (POCT) 1.015 1.005 - 1.030 [facility] UROBILINOGEN UA (POCT) 0.2 E.U./dL Jacki l E.U./dL [facility] ALEJANDRO SCREENINGon 05-29-2023 [facility] No Panel Informationon 12-29 [facility] US THYROID/PARATHYROIDon [facility] UA DIP, URINE (POC)on 2021 BILIRUBIN UA (POCT) Negative Negative [facility] CLARITY UA (POCT) Cloudy [facility] COLOR UA (POCT) Yellow [facility] GLUCOSE UA (POCT) 100 mg/dL Abnormal Negative mg/dL [facility] HEMOGLOBIN/BLOOD UA (POCT) Small Abnormal Negative [facility] KETONE UA (POCT) Negative Negative mg/dL [facility] LEUKOCYTES UA (POCT) Moderate Abnormal Negative [facility] NITRITE UA (POCT) Negative Negative [facility] PH UA (POCT) 7.0 4.5 - 8.0 [facility] Protein Ql (U) 100 mg/dL Abnormal Negative mg/dL [facility] SPECIFIC GRAVITY UA (POCT) 1.020 1.005 - 1.030 [facility] UROBILINOGEN UA (POCT) 0.2 E.U./dL Jacki l E.U./dL [facility] No Panel Informationon 08-15 Radiology Study observation (narrative) [facility] XR Sternum Lateral and right anterior obliqueon 09-27-2022 IMPRESSION: No acute osseous abnormality [employer] Order Clerk: PSC Transcribe Date/Time: Aug 15 2022 1:22P Dictated by : MAURICIO REYNOLDS MD This examination was interpreted and the report reviewed and electronically signed by: MAURICIO REYNOLDS MD on Aug 15 2022 1:23PM [facility] DIVISION OF RADIOLOGY * * *Final [...] destructive osseous lesion. DIVISION OF RADIOLOGY Provider, [facility] - 08/15/2022 * * *Final [...] lesion. IMPRESSION IMPRESSION: No acute osseous abnormality [employer] Order Clerk: [facility] Transcribe Date/Time: Aug 15 2022 1:22P Dictated by : MAURICIO REYNOLDS MD This examination was interpreted and the report reviewed and electronically signed by: MAURICIO REYNOLDS MD on Aug 15 2022 1:23PM EST [facility] XR Sternum Lateral and right anterior obliqueOrdered By: Ccf Provider on 08-15-2022 [facility] XR Wrist - right 4 Viewson 0 08-15-2022 IMPRESSION: No acute fracture. Degenerative disease of the right wrist. [employer] Order Clerk: PSCB Transcribe Date/Time: Aug 15 2022 1:20P Dictated by : MAURICIO REYNOLDS MD This examination was interpreted and the report reviewed and electronically signed by: MAURICIO REYNOLDS MD on Aug 15 2022 1:21PM [facility] DIVISION OF RADIOLOGY * * *Final [...] noted. DIVISION OF RADIOLOGY Provider, Karuna Nicko Trinidad - 08/15/2022 * * *Final Report* * [...] fracture. Degenerative disease of the right wrist. [employer] Order Clerk: SANDRA Transcribe Date/Time: Aug 15 2022 1:20P Dictated by : MAURICIO REYNOLDS MD This examination was interpreted and the report reviewed and electronically signed by: MAURICIO REYNOLDS MD on Aug 15 2022 1:21PM [facility] XR SHOULDER GENERAL 3V OR MO RE AP/TRUE AP/OTHER RIGHTon 06-17-2022 [facility] XR Shoulder - right 3 Viewso n 06-17-2022 IMPRESSION: 1. No acute fracture or dislocation. 2. Radiographic changes which can be seen in association with rotator cuff tendonopathy. [employer] Order Clerk: PSCB Transcribe Date/Time: Jun 17 2022 9:43A [...] relevant examinations available for comparison within the [facility] Imaging Archives. RESULT: 3 views of the [...] preserved. The visualized lung is clear. [id number] _DIVISION OF RADIOLOGY Provider, [facility] - 06/17/2022 * * *Final [...] relevant examinations available for comparison within the [facility] Archives. RESULT: 3 views of the [...] seen in association with rotator cuff tendonopathy. [employer] Order Clerk: PSCB Transcribe Date/Time: Jun 17 2022 9:43A Dictated by : AIYANA GOMEZ MD This examination was interpreted and the report reviewed and electronically signed by: AIYANA GOMEZ MD on Jun 17 2022 9:45AM EST [facility] Radiology Study observation (narrative) [facility] XR Shoulder - right 3 ViewsO rdered By: Ccf Provider on 06-17-2022 [facility] ALEJANDRO SCREENINGon 06-05-2022 [facility] HEMOGLOBIN A1C (POC)on 05-31 HbA1c (Bld) [Mass fraction] 6.2 % 4.2 - 5.6 % [facility] Renal function 2000 panelon 03-07-2022 Albumin [Mass/Vol] 4.1 g/dL 3.9 - 4.9 g/dL [facility] Anion gap [Moles/Vol] 14 mmol/L 9 - 18 mmol/L [facility] Calcium [Mass/Vol] 9.9 mg/dL 8.5 - 10. 2 mg/dL [facility] Chloride [Moles/Vol] 105 mmol/L 97 - 10 5 mmol/L [facility] CO2 [Moles/Vol] 23 mmol/L 22 - 30 mmol/L [facility] Creatinine [Mass/Vol] 1.29 mg/dL High 0.58 - 0.96 mg/dL [facility] Estimated Glomerular Filtration Rate 45 mL/min/1.73m Low >=60 mL/min/1.73 m [facility] Glucose [Mass/Vol] 167 mg/dL High 74 - 99 mg/dL [facility] Phosphate [Mass/Vol] 4.0 mg/dL 2.7 - 4 .8 mg/dL [facility] Potassium [Moles/Vol] 4.1 mmol/L 3.7 - 5.1 mmol/L [facility] Sodium [Moles/Vol] 142 mmol/L 136 - 144 mmol/L [facility] Urea nitrogen [Mass/Vol] 42 mg/dL High 7 - 21 mg/dL [facility] Glucose Glucometer (BldC) [M ass/Vol]on 01-20-2022 Glucose [Mass/Vol] 163 mg/dL 74-106 [facility] Work Phone: Comment on above: MANAGEMENT OF PATIEN T CARE PER NURSING PROTOCOL Office Visit: Thyroid Nodule son 08-30-2017 Dietary management education, guidance, and counseling (procedure) yes Invalid Interpretation Code [facility] [employer] Work Phone: Documentation of current medications (procedure) Done Invalid Interpretation Code [facility] [employer] Work Phone: Fall risk assessment No Invalid Interpretation Code [facility] [employer] Work Phone: Tobacco smoking status NHIS Never Invalid Interpretation Code [facility] [employer] Work Phone: Tobacco use [facility] Former smoker Invalid Interpretation Code [facility] [employer] Work Phone: Office Visiton 06-11-2017 Dietary management education, guidance, and counseling (procedure) yes Invalid Interpretation Code [facility] Work Phone: [phone] Documentation of current medications (procedure) Done Invalid Interpretation Code [facility] Work Phone: [phone] Protein mass conc Done [facility] Work Phone: [phone] 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 Left ventricular Ejection fraction 60 % Invalid Interpretation Code [facility] Work Phone: [phone] 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 phalanxon 05-02-2017 Dietary management education, guidance, and counseling (procedure) yes Invalid Interpretation Code [facility] Work Phone: [phone] Documentation of current medications (procedure) Done Invalid Interpretation Code [facility] Work Phone: [phone] Fall risk assessment No Invalid Interpretation Code [facility] Work Phone: Protein mass conc Done [facility] Work Phone: Tobacco smoking status NHIS Never Invalid Interpretation Code [facility] Work Phone: Tobacco smoking status NHIS Former smoker [facility] Work Phone: Tobacco use [facility] Former smoker Invalid Interpretation Code [facility] Work Phone: [phone] Office Visiton 04-23-2017 Protein mass conc Done [facility] Work Phone: Lab Report: CRPon 02-21-2017 CRP [Mass/Vol] mg/L Invalid Interpretation Code 0.0-3.0 [facility] Work Phone: Lab Report: Erythrocyte [...] [Mass/Vol] 1.35 ng/dL Invalid Interpretation Code 0.76-1.46 [facility] Work Phone: Lab Report: Thyroid Stim Hor oh (TSH)on 02-07-2017 TSH Qn < 0.01 uIU/mL Low 0.358-3.74 [facility] Work Phone: Office Visit: Thyroid evalua tionon 02-06-2017 Adolescent depression screening assessment Adolescent depression screening assessment Invalid Interpretation Code [facility] Work Phone: [phone] Adult depression screening assessment Adolescent depression screening assessment Invalid Interpretation Code [facility] Work Phone: Fall risk assessment [...] tho $ <=20 S Invalid Interpretation Code [facility] Work Phone: [phone] 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 01-15-2017 Cholesterol 164 mg/dL Invalid Interpretation Code [facility] Work Phone: [phone] Cholesterol to HDL Ratio 2.98 {ratio} Invalid Interpretation Code [facility] Work Phone: [phone] HDL Cholesterol 55 mg/dL Low [facility] Work Phone: [phone] LDL Cholesterol 67 mg/dL Invalid Interpretation Code [facility] Work Phone: [phone] LDL/HDL ratio, serum 1.22 Invalid Interpretation Code [facility] Work Phone: [phone] Triglyceride 210 mg/dL High [facility] Work Phone: [phone] very low density lipoproteins 42 mg/dL High [facility] Work Phone: [phone] Lab Report: Basic Metabolic Profile (BMP)on 01-12-2017 Anion gap 8 mmol/L Invalid Interpretation Code 5-15 [facility] Work Phone: [phone] Anion gap [Moles/Vol] 8 mmol/L 5-15 [facility] Work Phone: Calcium [Mass/Vol] 9.0 mg/dL Invalid Interpretation Code 8.5-10.1 [facility] Work Phone: Chloride [Moles/Vol] 105 mmol/L Invalid Interpretation Code 98-107 [facility] Work Phone: CO2 26.0 mmol/L Invalid Interpretation Code 21.0-32.0 [facility] Work Phone: [phone] CO2 (BldV) [Partial pressure] 26.0 mmol/L 21.0-32.0 [facility] Work Phone: Creatinine [Mass/Vol] 1.63 mg/dL High 0.55-1.02 [facility] Work Phone: [phone] eGFR (non-black) 41 mL/min/{1.73_m2} Low >60 [facility] Work Phone: EST GFR - AA 41 mL/min Low >60 [facility] Work Phone: [phone] GFR/1.73 sq M predicted among non-blacks MDRD (S/P/Bld) [Vol rate/Area] 34 mL/min/{1.73_m2} Low >60 [facility] Work Phone: Glucose 210 mg/dL High 70-110 [facility] Work Phone: Glucose [Mass/Vol] 210 mg/dL High 70-110 [facility] Work Phone: [phone] Potassium [Moles/Vol] 4.6 mmol/L Invalid Interpretation Code 3.5-5.1 [facility] Work Phone: [phone] Sodium [Moles/Vol] 139 mmol/L Invalid Interpretation Code 136-145 [facility] Work Phone: [phone] Urea nitrogen [Mass/Vol] 53 mg/dL High 7-18 [facility] Work Phone: Urea nitrogen/Creatinine [Mass ratio] 32.5 RATIO High 10-20 [facility] Work Phone: Replaced Document: (P) CBC W /Diff, Automatedon 01-12-2017 Absolute Neut 3.7 X10 3/UL Invalid Interpretation Code 2.0-7.7 [facility] Work Phone: Basophils/100 leukocytes 1.2 % High 0-1 [facility] Work Phone: Basophils/100 WBC (Bld) 1.2 % High 0-1 [facility] Work Phone: Eosinophils/100 leukocytes 8.4 % High 0-5 [facility] Work Phone: Eosinophils/100 WBC (Bld) 8.4 % High 0-5 [facility] Work Phone: Erythrocyte distribution width (RBC) [Ratio] 44.7 fL High 35.1-43.9 [facility] Work Phone: Erythrocyte distribution width (RBC) [Ratio] 13.9 % 11.6-14.6 [facility] Work Phone: Erythrocytes (RBC) 4.04 10*6/uL Low 4.2-5.[address] [facility] Work Phone: [phone] Hematocrit (Bld) [Volume fraction] 36.0 % Low 37-47 [facility] Work Phone: Hematocrit (HCT) 36.0 % Low 37-47 [facility] Work Phone: [phone] Hemoglobin (Bld) [Mass/Vol] 11.6 g/dL Low 12.0-15.0 [facility] Work Phone: Immature granulocytes (Bld) [#/Vol] 0.200 % 0.0-0.9 [facility] Work Phone: immature granulocytes, percentage of total cells, blood 0.200 % Invalid Interpretation Code 0.0-0.9 [facility] Work Phone: [phone] Immature granulocytes/100 WBC (Bld) 0.200 % Invalid Interpretation Code 0.0-0.9 [facility] Work Phone: Lymphocytes 1.53 X10 3/UL Invalid Interpretation Code 0.83-4.51 [facility] Work Phone: [phone] Lymphocytes (Bld) [#/Vol] 1.53 X10 3/UL 0.83-4.51 [facility] Work Phone: Lymphocytes/100 leukocytes 23.3 % Invalid Interpretation Code 19-41 [facility] Work Phone: [phone] Lymphocytes/100 WBC (Bld) 23.3 % 19-41 [facility] Work Phone: MCH 28.7 pg Invalid Interpretation Code 27.0-32.0 [facility] Work Phone: [phone] MCH (RBC) [Entitic mass] 28.7 pg 27.0-32.0 [facility] Work Phone: MCHC 32.2 G/GL Invalid Interpretation Code 32-36 [facility] Work Phone: [phone] MCHC (RBC) [Mass/Vol] 32.2 G/GL 32-36 [facility] Work Phone: MCV 89.1 fL Invalid Interpretation Code 81-99 [facility] Work Phone: [phone] MCV (RBC) [Entitic vol] 89.1 fL 81-99 [facility] Work Phone: Monocytes/100 leukocytes 10.5 % High 0-10 [facility] Work Phone: [phone] Monocytes/100 WBC (Bld) 10.5 % High 0-10 [facility] Work Phone: neutrophil count, blood 3.7 X10 3/UL Invalid Interpretation Code 2.0-7.7 [facility] Work Phone: [phone] Neutrophils (Bld) [#/Vol] 3.7 X10 3/UL 2.0-7.7 [facility] Work Phone: Neutrophils/100 leukocytes 56.4 % Invalid Interpretation Code 47-70 [facility] Work Phone: [phone] Neutrophils/100 WBC (Bld) 56.4 % 47-70 [facility] Work Phone: Platelet mean volume (Bld) [Entitic vol] 10.4 fL 6.2-12.0 [facility] Work Phone: Platelets 239 10*3/mm3 Invalid Interpretation Code 150-450 [facility] Work Phone: [phone] Platelets (Bld) [#/Vol] 239 10*3/mm3 150-450 [facility] Work Phone: PMV by Stevo 10.4 fL Invalid Interpretation Code 6.2-12.0 [facility] Work Phone: RBC (Bld) [#/Vol] 4.04 10*6/uL Low 4.2-5.4 [facility] Work Phone: RDW SD 44.7 fL High 35.1-43.9 [facility] Work Phone: RDW-CA 13.9 % Invalid Interpretation Code 11.6-14.6 [facility] Work Phone: [phone] red blood cell distribution width, size density 44.7 fL High 35.1-43.9 [facility] Work Phone: [phone] WBC (Bld) [#/Vol] 6.6 10*3/uL 4.4-11.0 [facility] Work Phone: WBC (Leukocytes) 6.6 10*3/uL Invalid Interpretation Code 4.4-11.0 [facility] Work Phone: [phone] Lab Report: MRSA Wound DNA b y PCRon 01-04-2017 GE use only - for [employer] import when terms are not otherwise specified Positive High Negative [facility] Work Phone: [phone] INR Coag (Bld) [Relative time] Positive High Negative [facility] Work Phone: SA RESULT Positive High Negative [facility] Work Phone: Office Visit: Thyroid evalua tionon 12-20-2016 Colonoscopy (procedure) Colonoscopy (procedure) Invalid Interpretation Code [facility] Work Phone: [phone] Protein mass conc Colonoscopy (procedure) [facility] Work Phone: Lab Report: CBC W/Diff, Auto matedon 12-13-2016 Anisocytosis presence RARE Invalid Interpretation Code [facility] Work Phone: [phone] Anisocytosis Ql (Bld) RARE [facility] Work Phone: complete blood count (CBC), comments . Invalid Interpretation Code [facility] Work Phone: [phone] Pathologist Cyto stain Nom (Cvx/Vag) [ID] May foll Invalid Interpretation Code [facility] Work Phone: Platelets LM Ql (Bld) ADEQUATE Invalid Interpretation Code ADEQ [facility] Work Phone: SMEAR COMMENT . Invalid Interpretation Code [facility] Work Phone: Lab Report: IgG Subclasseson 12-02-2016 IgG subclass 1 (S) [Mass/Vol] 392 mg/dL Low 422-1292 [facility] Work Phone: IgG subclass 2 (S) [Mass/Vol] 216 mg/dL Invalid Interpretation Code 117-747 [facility] Work Phone: IgG subclass 3 (S) [Mass/Vol] 42 mg/dL Invalid Interpretation Code 41-129 [facility] Work Phone: IgG subclass 4 (S) [Mass/Vol] 9 mg/dL Invalid Interpretation Code 1-291 [facility] Work Phone: Office Visit: day 7 of Cefta raline (mrsa, enterobacter, actinomyces)on 11-22-2016 Adult depression screening assessment Adult depression screening assessment Invalid Interpretation Code [facility] Work Phone: [phone] PHQ-9 quick depression assessment panel [Reported.PHQ] Adult depression screening assessment [facility] Work Phone: Lab Report: GEGE + Protein El ect, Serumon 11-21-2016 Albumin [Mass/Vol] 2.5 g/dL Low 2.9-4.4 [facility] Work Phone: Albumin/Globulin [Mass ratio] 0.9 {ratio} Invalid Interpretation Code 0.7-1.7 [facility] Work Phone: Alpha 2 globulin Elph [Mass/Vol] 1.1 g/dL High 0.4-1.0 [facility] Work Phone: [id number] 0.3 g/dL Invalid Interpretation Code 0.0-0.4 [facility] Work Phone: BETA GLOBULIN 0.9 g/dL Invalid Interpretation Code 0.7-1.3 [facility] Work Phone: Gamma globulin Elph [Mass/Vol] 600 mg/dL Invalid Interpretation Code Units converted. See lab report for original value. [facility] Work Phone: [phone] Globulin 2.9 g/dL Invalid Interpretation Code 2.2-3.9 [facility] Work Phone: [phone] Globulin 0.9 g/dL Invalid Interpretation Code 0.7-1.3 [facility] Work Phone: [phone] Globulin 0.3 g/dL Invalid Interpretation Code 0.0-0.4 [facility] Work Phone: [phone] Globulin (S) [Mass/Vol] 2.9 g/dL 2.2-3.9 [facility] Work Phone: [phone] GEGE RESULT,S Comment Invalid Interpretation Code . [facility] Work Phone: [phone] IgA [Mass/Vol] 249 mg/dL Invalid Interpretation Code 87-352 [facility] Work Phone: [phone] IgG [Mass/Vol] 584 mg/dL Low 700-1600 [facility] Work Phone: [phone] IgM [Mass/Vol] 40 mg/dL Invalid Interpretation Code 26-217 [facility] Work Phone: [phone] lab comments Comment Invalid Interpretation Code . [facility] Work Phone: [phone] M-SPIKE . g/dL Invalid Interpretation Code [facility] Work Phone: [phone] MONOCLONAL PROTEIN . g/dL Invalid Interpretation Code [facility] Work Phone: [phone] NOTE: Comment Invalid Interpretation Code . [facility] Work Phone: Protein [Mass/Vol] 5.4 g/dL Low 6.0-8.5 [facility] Work Phone: Protein mass conc Comment . [facility] Work Phone: serum protein electrophoresis, interpretation/comment Comment Invalid Interpretation Code . [facility] Work Phone: [phone] Lab Report: Bedside Glucoseo n 11-18-2016 Glucose 352 mg/dL High 70-110 [facility] Work Phone: [phone] Glucose [Mass/Vol] 352 mg/dL High 70-110 [facility] Work Phone: Microbiology: Fungus Stainon 11-18-2016 fungus stain . Invalid Interpretation Code [facility] Work Phone: [phone] FUNST . Invalid Interpretation Code [facility] Work Phone: Lab Report: Basic Metabolic Profile (BMP)on 11-17-2016 Creatinine 45.87 mL/min Invalid Interpretation Code [facility] Work Phone: [phone] Lab Report: Iron+Iron Bindin g Capacityon 11-17-2016 Iron [Mass/Vol] 32 ug/dL Low 50-170 [facility] Work Phone: Iron binding capacity [Mass/Vol] 223 ug/dL Low 250-450 [facility] Work Phone: Iron saturation [Mass fraction] 14.3 % Low 15.0-55.0 [facility] Work Phone: Lab Report: Hemoglobin A1con 11-16-2016 HbA1c (Bld) [Mass fraction] 5.3 % Invalid Interpretation Code 4.2-6.3 [facility] Work Phone: Lab Report: Comprehensive Me tabolic Profilon 11-14-2016 Albumin [Mass/Vol] 2.9 g/dL Low 3.4-5.0 [facility] Work Phone: Alkaline phosphatase (ALP) 56 U/L Invalid Interpretation Code 45-117 [facility] Work Phone: [phone] ALP (Bld) [Catalytic activity/Vol] 56 U/L 45-117 [facility] Work Phone: [phone] ALT [Catalytic activity/Vol] 14 U/L Invalid Interpretation Code 12-78 [facility] Work Phone: [phone] AST [Catalytic activity/Vol] 13 U/L Low 15-37 [facility] Work Phone: Bilirubin [Mass/Vol] 0.20 mg/dL Invalid Interpretation Code 0.20-1.00 [facility] Work Phone: Protein [Mass/Vol] 6.9 g/dL Invalid Interpretation Code 6.4-8.2 [facility] Work Phone: Lab Report: Prealbuminon Prealbumin 12.9 mg/dL Low 20.0-40.0 [facility] Work Phone: [phone] Prealbumin Elph [Mass/Vol] 12.9 mg/dL Low 20.0-40.0 [facility] Work Phone: Lab Report: Vancomycin, Trou gh Levelon 10-09-2016 Vancomycin trough [Mass/Vol] 18.7 ug/mL High 5.0-15.0 [facility] Work Phone: Lab Report: Magnesiumon 08-19 Magnesium [Mass/Vol] 2.3 mg/dL Invalid Interpretation Code 1.8-2.4 [facility] Work Phone: Lab Report: Phosphoruson PHOS 3.8 mg/dL Invalid Interpretation Code 2.5-4.9 [facility] Work Phone: Phosphate [Mass/Vol] 3.8 mg/dL 2.5-4.[address] [facility] Work Phone: Phosphorus Concentratation-Random 3.8 mg/dL Invalid Interpretation Code 2.5-4.9 [facility] Work Phone: Lab Report: Liver Profileon 09-01-2016 Bilirubin.direct [Mass/Vol] 0.08 mg/dL Invalid Interpretation Code 0.00-0.30 [facility] Work Phone: Lab Report: Partial Thrombop last Timeon 09-01-2016 aPTT Coag (Bld) [Time] 46.2 s High 24.1-36.2 [facility] Work Phone: Lab Report: Prothrombin Time w/INRon 09-01-2016 INR Coag (PPP) [Relative time] 1.2 {INR} Invalid Interpretation Code [facility] Work Phone: INR in blood by coagulation 1.2 {INR} Invalid Interpretation Code [facility] Work Phone: PT Coag (PPP) [Time] 14.8 s Invalid Interpretation Code 11.7-14.9 [facility] Work Phone: Office Visit: Thyroid evalua tionon 04-19-2016 MG Breast screening Normal Bilateral Invalid Interpretation Code [facility] Work Phone: 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 ABNORMAL Invalid Interpretation Code [facility] Work Phone: [phone] Interpretation Sinus Bradycardia -L eft axis. ABNORMAL Invalid Interpretation Code [facility] Work Phone: [phone] [place] 39 deg Invalid Interpretation Code [facility] Work Phone: [phone] P wave axis, electrocardiogram 39 deg Invalid Interpretation Code [facility] Work Phone: CO Interval 154 ms Invalid Interpretation Code [facility] Work Phone: CO interval, electrocardiogram 154 ms Invalid Interpretation Code [facility] Work Phone: [phone] Pulse (Heart Rate) 55 /min Invalid Interpretation Code [facility] Work Phone: [phone] QRS axis, electrocardiogram -36 deg Invalid Interpretation Code [facility] Work Phone: [phone] QRS Duration 104 ms Invalid Interpretation Code [facility] Work Phone: QRS duration, electrocardiogram 104 ms Invalid Interpretation Code [facility] Work Phone: QT Interval new path ms Invalid Interpretation Code [facility] Work Phone: [phone] QT interval, electrocardiogram new path ms Invalid Interpretation Code [facility] Work Phone: [phone] T [place] 31 deg Invalid Interpretation Code [facility] Work Phone: [phone] T wave axis, electrocardiogram 31 deg Invalid Interpretation Code [facility] Work Phone: [phone] Office Visiton 02-22-2015 Cholesterol [Mass/Vol] 164 mg/dL [facility] Work Phone: [phone] Cholesterol in HDL [Mass/Vol] 57 mg/dL [facility] Work Phone: [phone] Cholesterol in LDL [Mass/Vol] 76 mg/dL [facility] Work Phone: [phone] Triglyceride [Mass/Vol] 155 mg/dL [facility] Work Phone: [phone] 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 02-09-2015 Free T4 index Calc [Mass/Vol] 10.2 Invalid Interpretation Code [facility] Work Phone: [phone] T4 [Mass/Vol] 9.9 ug/dL Invalid Interpretation Code [facility] Work Phone: Throyxin (T4) Free 10.2 ng/dL Invalid Interpretation Code [facility] Work Phone: [phone] Office Visiton 12-29-2014 cardiac risk group C Invalid Interpretation Code [facility] Work Phone: General cardiovascular disease 10Y risk [#] [place].D'Agostino N/A Invalid Interpretation Code [facility] Work Phone: 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 11-18-2014 Cholesterol in LDL/Cholesterol in HDL [Mass ratio] 2.06 [facility] Work Phone: [phone] Cholesterol.total/Chol esterol in HDL [Mass ratio] 3.56 {ratio} [facility] Work Phone: [phone] Lipoprotein.pre-beta [Mass/Vol] 32 mg/dL [facility] Work Phone: Replaced Document: [facility] E CG Observationson 01-12-2014 Pulse (Heart Rate) 406 ms Invalid Interpretation Code [facility] Work Phone: Office Visit: Thyroid evalua hunter 01-17-2013 General categories Cyto stain (Cvx/Vag) [Interp] Normal Invalid Interpretation Code [facility] Work Phone: Vital Signs Date Time Vital Sign Value Performing Clinician Facility 05-13-2025 16:09-0400 Body temperature 98.2 [degF] Dr. Rishi Vasquez DO Work Phone: [facility] 05-13-2025 16:09-0400 Body weight 70.[address] Rishi Vasquez DO Work Phone: 8(650)636-062012 [place] [address] 05-13-2025 16:09-0400 Diastolic blood pressure 54 mm[Hg] Dr. Rishi Vasquez DO Work Phone: 4(067)167-491712 [place] [address] 05-13-2025 16:09-0400 Heart rate 60 /min Dr. Rishi Vasquez DO Work Phone: [facility] 05-13-2025 16:09-0400 Respiratory rate 16 /min Dr. Rishi Vasquez DO Work Phone: [facility] 05-13-2025 16:09-0400 SaO2% (BldA) [Mass fraction] 97 % Dr. Rishi Vasquez DO Work Phone: [facility] 05-13-2025 16:09-0400 Systolic blood pressure 130 mm[Hg] Dr. Rishi Vasquez DO Work Phone: [facility] 05-07-2025 09:19-0400 Body height 167.[address] Rishi Vasquez DO Work Phone: [facility] 05-07-2025 09:19-0400 Body mass index (BMI) [Ratio] 24.7 kg/m2 Dr. Rishi Vasquez DO Work Phone: [facility] 05-07-2025 09:19-0400 Body weight 69.[address] Rishi Vasquez DO Work Phone: [facility] 05-07-2025 09:19-0400 Diastolic blood pressure 63 mm[Hg] Dr. Rishi Vasquez DO Work Phone: [facility] 05-07-2025 09:19-0400 Heart rate 56 /min Dr. Rishi Vasquez DO Work Phone: [facility] 05-07-2025 09:19-0400 Respiratory rate 16 /min Dr. Rishi Vasquez DO Work Phone: [facility] 05-07-2025 09:19-0400 Systolic blood pressure 123 mm[Hg] Dr. Rishi Vasquez DO Work Phone: [facility] 04-30-2025 11:13-0400 Body mass index (BMI) [Ratio] 24.5 kg/m2 Fouzia Chandra 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.FLAKE CUTTER OPERATOR Work Phone: [facility] 04-30-2025 11:13-0400 Body weight 68.86 kg Fouzia Chandra 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.FLAKE CUTTER OPERATOR Work Phone: [facility] 04-30-2025 11:13-0400 Diastolic blood pressure 60 mm[Hg] Fouzia Chandra 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.FLAKE CUTTER OPERATOR Work Phone: [facility] 04-30-2025 11:13-0400 Heart rate 77 /min Fouzia Chandra 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.FLAKE CUTTER OPERATOR Work Phone: [facility] 04-30-2025 11:13-0400 Respiratory rate 12 /min Fouzia Chandra 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.FLAKE CUTTER OPERATOR Work Phone: [facility] 04-30-2025 11:13-0400 SaO2% (BldA) [Mass fraction] 98 % Fouzia Chandra 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.FLAKE CUTTER OPERATOR Work Phone: [facility] 04-30-2025 11:13-0400 Systolic blood pressure 130 mm[Hg] Fouzia Chandra 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.FLAKE CUTTER OPERATOR Work Phone: [facility] 04-15-2025 11:26-0400 Body height 167.[address] Rishi Vasquez DO Work Phone: [facility] 04-15-2025 11:26-0400 Body weight 74.[address] Rishi Vasquez DO Work Phone: 9(934)516-706812 [place] [address] 04-14-2025 07:25-0400 Body mass index (BMI) [Ratio] 26.4 kg/m2 Dr. Rishi Vasquez DO Work Phone: 2(692)064-914212 [place] [address] 04-03-2025 11:01-0400 Body temperature 98.2 [degF] Dr. Rishi Vasquez DO Work Phone: 8(234)390-381960 [place] [address] 04-03-2025 11:01-0400 Body weight 74.[address] Rishi Vasquez DO Work Phone: 9(593)422-541960 [place] [address] 04-03-2025 11:01-0400 Diastolic blood pressure 59 mm[Hg] Dr. Rishi Vasquez DO Work Phone: 5(930)205-000812 [place] [address] 04-03-2025 11:01-0400 Heart rate 60 /min Dr. Rishi Vasquez DO Work Phone: 7(340)098-681060 [place] [address] 04-03-2025 11:01-0400 Respiratory rate 14 /min Dr. Rishi Vasquez DO Work Phone: 3(062)628-397660 [place] [address] 04-03-2025 11:01-0400 SaO2% (BldA) [Mass fraction] 97 % Dr. Rishi Vasquez DO Work Phone: 1(860)217-320112 [place] [address] 04-03-2025 11:01-0400 Systolic blood pressure 124 mm[Hg] Dr. Rishi Vasquez DO Work Phone: [facility] 03-27-2025 10:16-0400 Diastolic blood pressure 68 mm[Hg] Yumiko Valenzuelalogcarlo 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.FLAKE CUTTER OPERATOR Work Phone: [facility] 03-27-2025 10:16-0400 Heart rate 74 /min Yumiko Whitehead APRN.FLAKE CUTTER OPERATOR Work Phone: [facility] 03-27-2025 10:16-0400 Respiratory rate 16 /min Yumiko Podlogar 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.FLAKE CUTTER OPERATOR Work Phone: [facility] 03-27-2025 10:16-0400 SaO2% (BldA) [Mass fraction] 99 % Yumiko Podlogar 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.FLAKE CUTTER OPERATOR Work Phone: [facility] 03-27-2025 10:16-0400 Systolic blood pressure 134 mm[Hg] Yumiko Podlogar 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.FLAKE CUTTER OPERATOR Work Phone: [facility] 03-20-2025 08:28-0400 Body temperature 98.9 [degF] Dr. Rishi Vasquez DO Work Phone: [facility] 03-20-2025 08:28-0400 Diastolic blood pressure 57 mm[Hg] Dr. Rishi Vasquez DO Work Phone: [facility] 03-20-2025 08:28-0400 Heart rate 52 /min Dr. Rishi Vasquez DO Work Phone: [facility] 03-20-2025 08:28-0400 Respiratory rate 18 /min Dr. Rishi Vasquez DO Work Phone: 3(240)578-667112 [place] [address] 03-20-2025 08:28-0400 SaO2% (BldA) [Mass fraction] 97 % Dr. Rishi Vasquez DO Work Phone: [facility] 03-20-2025 08:28-0400 Systolic blood pressure 142 mm[Hg] Dr. Rishi Vasquez DO Work Phone: [facility] 03-19-2025 10:06-0400 Body height 167.[address] Rishi Vasquez DO Work Phone: [facility] 03-19-2025 10:06-0400 Body mass index (BMI) [Ratio] 26.4 kg/m2 Dr. Rishi Vasquez DO Work Phone: [facility] 03-19-2025 10:06-0400 Body weight 74.[address] Rishi Vasquez DO Work Phone: 7(675)892-179312 [place] [address] 03-11-2025 15:34-0400 Body temperature 97.9 [degF] Dr. Rishi Vasquez DO Work Phone: 6(239)764-699160 [place] [address] 03-11-2025 15:34-0400 Diastolic blood pressure 47 mm[Hg] Dr. Rishi Vasquez DO Work Phone: 2(171)760-253960 [place] [address] 03-11-2025 15:34-0400 Heart rate 58 /min Dr. Rishi Vasquez DO Work Phone: 0(373)838-783160 [place] [address] 03-11-2025 15:34-0400 Respiratory rate 16 /min Dr. Rishi Vasquez DO Work Phone: 0(261)071-537960 [place] [address] 03-11-2025 15:34-0400 SaO2% (BldA) [Mass fraction] 97 % Dr. Rishi Vasquez DO Work Phone: 6(815)435-802060 [place] [address] 03-11-2025 15:34-0400 Systolic blood pressure 112 mm[Hg] Dr. Rishi Vasquez DO Work Phone: 0(363)734-740860 [place] [address] 03-11-2025 05:37-0400 Body mass index (BMI) [Ratio] 26.6 kg/m2 Dr. Rishi Vasquez DO Work Phone: 7(784)930-116260 [place] [address] 03-11-2025 05:37-0400 Body weight 75.[address] Rishi Vasquez DO Work Phone: 9(163)936-579960 [place] [address] 03-07-2025 17:01-0400 Body temperature 98 [degF] Dr. Rishi Vasquez DO Work Phone: 0(227)346-060860 [place] [address] 03-07-2025 17:01-0400 Diastolic blood pressure 78 mm[Hg] Dr. Rishi Vasquez DO Work Phone: 9(554)003-345160 [place] [address] 03-07-2025 17:01-0400 Heart rate 67 /min Dr. Rishi Vasquez DO Work Phone: 1(563)980-346260 [place] [address] 03-07-2025 17:01-0400 Respiratory rate 14 /min Dr. Rishi Vasquez DO Work Phone: 3(761)121-386060 [place] [address] 03-07-2025 17:01-0400 SaO2% (BldA) [Mass fraction] 99 % Dr. Rishi Vasquez DO Work Phone: [facility] 03-07-2025 17:01-0400 Systolic blood pressure 109 mm[Hg] Dr. Rishi Vasquez DO Work Phone: [facility] 03-07-2025 13:42-0400 Body height 167.[address] Rishi Vasquez DO Work Phone: [facility] 03-07-2025 13:42-0400 Body mass index (BMI) [Ratio] 27.6 kg/m2 Dr. Rishi Vasquez DO Work Phone: [facility] 03-07-2025 13:42-0400 Body weight 77.[address] Rishi Vasquez DO Work Phone: [facility] 12-05-2024 09:39-0500 Diastolic blood pressure 60 mm[Hg] Rishi Vasquez DO Work Phone: [facility] 12-05-2024 09:39-0500 Systolic blood pressure 110 mm[Hg] Rishi Del Rosarioon DO Work Phone: [facility] 12-05-2024 09:03-0500 Body mass index (BMI) [Ratio] 25.62 kg/m2 Rishi Taterison DO Work Phone: [facility] 12-05-2024 09:03-0500 Body temperature 97 [degF] Rishi Del Rosarioon DO Work Phone: [facility] 12-05-2024 09:03-0500 Body weight 72 kg Rishi Vasquez DO Work Phone: [facility] 12-05-2024 09:03-0500 Heart rate 60 /min Rishi Vasquez DO Work Phone: [facility] 12-05-2024 09:03-0500 Respiratory rate 16 /min Rishi Vasquez DO Work Phone: [facility] 06-04-2024 09:43-0400 Body mass index (BMI) [Ratio] 24.69 kg/m2 Rishi Vasquez DO Work Phone: [facility] 06-04-2024 09:43-0400 Body temperature 96.6 [degF] Rishi Vasquez DO Work Phone: [facility] 06-04-2024 09:43-0400 Body weight 69.4 kg Rishi Vasquez DO Work Phone: [facility] 06-04-2024 09:43-0400 Diastolic blood pressure 70 mm[Hg] Rishi Vasquez DO Work Phone: [facility] 06-04-2024 09:43-0400 Heart rate 64 /min Rishi Vasquez DO Work Phone: [facility] 06-04-2024 09:43-0400 Respiratory rate 16 /min Rishi Vasquez DO Work Phone: [facility] 06-04-2024 09:43-0400 Systolic blood pressure 154 mm[Hg] Rishi Vasquez DO Work Phone: [facility] 02-07-2024 09:19-0400 Body mass index (BMI) [Ratio] 25.8 kg/m2 Dr. Rishi Vasquez Work Phone: [facility] 02-07-2024 09:19-0400 Body weight 72.[address] Rishi Vasquez Work Phone: [facility] 02-07-2024 09:19-0400 Diastolic blood pressure 71 mm[Hg] Dr. Rishi Vasquez Work Phone: [facility] 02-07-2024 09:19-0400 Heart rate 47 /min Dr. Rishi Vasquez Work Phone: [facility] 02-07-2024 09:19-0400 Respiratory rate 18 /min Dr. Rishi Vasquez Work Phone: [facility] 02-07-2024 09:19-0400 Systolic blood pressure 142 mm[Hg] Dr. Rishi Vasquez Work Phone: 7(203)195-676312 [place] [address] 01-15-2024 10:00-0500 Diastolic blood pressure 71 mm[Hg] Anselmo Golias PT Work Phone: [facility] 01-15-2024 10:00-0500 Heart rate 63 /min Anselmo Golias PT Work Phone: [facility] 01-15-2024 10:00-0500 Systolic blood pressure 166 mm[Hg] Anselmo Golias PT Work Phone: [facility] 07-03-2023 09:06-0400 Body height 167.[address] Rishi Vasquez Work Phone: [facility] 07-03-2023 09:06-0400 Body mass index (BMI) [Ratio] 26.1 kg/m2 Dr. Rishi Vasquez Work Phone: 5(199)494-133712 [place] [address] 07-03-2023 09:06-0400 Body weight 73.[address] Rishi Vasquez Work Phone: [facility] 07-03-2023 09:06-0400 Diastolic blood pressure 62 mm[Hg] Dr. Rishi Vasquez Work Phone: 5(874)913-328512 [place] [address] 07-03-2023 09:06-0400 Heart rate 55 /min Dr. Rishi Vasquez Work Phone: [facility] 07-03-2023 09:06-0400 Respiratory rate 17 /min Dr. Rishi Vasquez Work Phone: [facility] 07-03-2023 09:06-0400 SaO2% (BldA) [Mass fraction] 99 % Dr. Rishi Vasquez Work Phone: 4(815)993-939012 [place] [address] 07-03-2023 09:06-0400 Systolic blood pressure 145 mm[Hg] Dr. Rishi Vasquez Work Phone: [facility] 06-04-2023 11:25-0400 Body temperature 97.3 [degF] Rishi Vasquez DO Work Phone: [facility] 06-04-2023 11:25-0400 Body weight 72.58 kg Rishi Vasquez DO Work Phone: [facility] 06-04-2023 11:25-0400 Diastolic blood pressure 70 mm[Hg] Rishi Vasquez DO Work Phone: [facility] 06-04-2023 11:25-0400 Heart rate 60 /min Rishi Taterison DO Work Phone: [facility] 06-04-2023 11:25-0400 Respiratory rate 16 /min Rishi Del Rosarioon DO Work Phone: [facility] 06-04-2023 11:25-0400 Systolic blood pressure 120 mm[Hg] Rishi Vasquez DO Work Phone: [facility] 04-20-2023 08:57-0400 Body height 167.[address] Rishi Vasquez Work Phone: 7(041)006-027112 [place] [address] 04-20-2023 08:57-0400 Heart rate 56 /min Dr. Rishi Vasquez Work Phone: 8(683)941-570912 [place] [address] 04-20-2023 08:51-0400 Body mass index (BMI) [Ratio] 25.9 kg/m2 Dr. Rishi Vasquez Work Phone: 9(117)729-616860 [place] [address] 04-20-2023 08:51-0400 Body weight 73.[address] Rishi Vasquez Work Phone: 0(322)979-321412 [place] [address] 04-20-2023 08:51-0400 Diastolic blood pressure 72 mm[Hg] Dr. Rishi Vasquez Work Phone: 2(121)836-389812 [place] [address] 04-20-2023 08:51-0400 Respiratory rate 18 /min Dr. Rishi Vasquez Work Phone: 5(972)847-902860 [place] [address] 04-20-2023 08:51-0400 SaO2% (BldA) [Mass fraction] 99 % Dr. Rishi Vasquez Work Phone: 6(526)589-495512 [place] [address] 04-20-2023 08:51-0400 Systolic blood pressure 147 mm[Hg] Dr. Rishi Vasquez Work Phone: 1(445)695-775212 [place] [address] 12-05-2022 09:40-0500 Body temperature 97.3 [degF] Rishi Vasquez DO Work Phone: [facility] 12-05-2022 09:40-0500 Body weight 72.58 kg Rishi Vasquez DO Work Phone: [facility] 12-05-2022 09:40-0500 Diastolic blood pressure 82 mm[Hg] Rishi Vasquez DO Work Phone: [facility] 12-05-2022 09:40-0500 Heart rate 64 /min Rishi Vasquez DO Work Phone: [facility] 12-05-2022 09:40-0500 Respiratory rate 16 /min Rishi Vasquez DO Work Phone: [facility] 12-05-2022 09:40-0500 Systolic blood pressure 126 mm[Hg] Rishi Vasquez DO Work Phone: [facility] 09-23-2022 09:01-0400 Body temperature 97.5 [degF] Camille Athy PA-C Work Phone: [facility] 09-23-2022 09:01-0400 Body weight 74.93 kg Camille Athy PA-C Work Phone: [facility] 09-23-2022 09:01-0400 Diastolic blood pressure 72 mm[Hg] Camille Athy PA-C Work Phone: [facility] 09-23-2022 09:01-0400 Heart rate 62 /min Camille Athy PA-C Work Phone: [facility] 09-23-2022 09:01-0400 Respiratory rate 21 /min Camille Athy PA-C Work Phone: [facility] 09-23-2022 09:01-0400 SaO2% (BldA) [Mass fraction] 99 % Camille Athy PA-C Work Phone: [facility] 09-23-2022 09:01-0400 Systolic blood pressure 160 mm[Hg] Camille Athy PA-C Work Phone: [facility] 08-15-2022 12:13-0400 Body temperature 97.81 [degF] Camille Athy PA-C Work Phone: [facility] 08-15-2022 12:13-0400 Body weight 75.03 kg Camille Athy PA-C Work Phone: [facility] 08-15-2022 12:13-0400 Diastolic blood pressure 86 mm[Hg] Camille Athy PA-C Work Phone: [facility] 08-15-2022 12:13-0400 Heart rate 49 /min Camille Athy PA-C Work Phone: [facility] 08-15-2022 12:13-0400 Respiratory rate 18 /min Camille Athy PA-C Work Phone: [facility] 08-15-2022 12:13-0400 SaO2% (BldA) [Mass fraction] 98 % Camille Athy PA-C Work Phone: [facility] 08-15-2022 12:13-0400 Systolic blood pressure 162 mm[Hg] Camille Athy PA-C Work Phone: [facility] 08-08-2022 09:30-0400 Body height 167.[address] Rishi Vasquez Work Phone: [facility] Work Phone: 08-08-2022 09:30-0400 Body mass index (BMI) [Ratio] 26.6 kg/m2 Dr. Rishi Vasquez Work Phone: [facility] Work Phone: 08-08-2022 09:30-0400 Body weight 74.[address] Rishi Vasquez Work Phone: [facility] Work Phone: 08-08-2022 09:30-0400 Diastolic blood pressure 51 mm[Hg] Dr. Rishi Vasquez Work Phone: [facility] Work Phone: 08-08-2022 09:30-0400 Heart rate 46 /min Dr. Rishi Vasquez Work Phone: [facility] Work Phone: 08-08-2022 09:30-0400 Respiratory rate 16 /min Dr. Rishi Vasquez Work Phone: [facility] Work Phone: 08-08-2022 09:30-0400 Systolic blood pressure 126 mm[Hg] Dr. Rishi Vasquez Work Phone: [facility] Work Phone: 06-29-2022 09:35-0400 Diastolic blood pressure 71 mm[Hg] Dr. Rishi Vasquez Work Phone: [facility] Work Phone: 06-29-2022 09:35-0400 Respiratory rate 18 /min Dr. Rishi Vasquez Work Phone: [facility] Work Phone: 06-29-2022 09:35-0400 Systolic blood pressure 164 mm[Hg] Dr. Rishi Vasquez Work Phone: [facility] Work Phone: 06-17-2022 08:24-0400 Body temperature 97.9 [degF] Kena Older 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.FLAKE CUTTER OPERATOR Work Phone: [facility] 06-17-2022 08:24-0400 Body weight 76.39 kg Kena Older 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.FLAKE CUTTER OPERATOR Work Phone: [facility] 06-17-2022 08:24-0400 Diastolic blood pressure 80 mm[Hg] Kena Older 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.FLAKE CUTTER OPERATOR Work Phone: [facility] 06-17-2022 08:24-0400 Heart rate 59 /min Kena Older 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.FLAKE CUTTER OPERATOR Work Phone: [facility] 06-17-2022 08:24-0400 Respiratory rate 20 /min Kena Older 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.FLAKE CUTTER OPERATOR Work Phone: [facility] 06-17-2022 08:24-0400 SaO2% (BldA) [Mass fraction] 97 % Kena Older 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.FLAKE CUTTER OPERATOR Work Phone: [facility] 06-17-2022 08:24-0400 Systolic blood pressure 158 mm[Hg] Kena Older 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.FLAKE CUTTER OPERATOR Work Phone: [facility] 05-31-2022 10:19-0400 Body temperature 98.29 [degF] Rishi Del Rosarioon DO Work Phone: [facility] 05-31-2022 10:19-0400 Body weight 75.3 kg Rishi Vasquez DO Work Phone: [facility] 05-31-2022 10:19-0400 Diastolic blood pressure 70 mm[Hg] Rishi Taterison DO Work Phone: [facility] 05-31-2022 10:19-0400 Heart rate 56 /min Rishi Taterison DO Work Phone: [facility] 05-31-2022 10:19-0400 Systolic blood pressure 116 mm[Hg] Rishi Taterison DO Work Phone: [facility] 02-07-2022 08:55-0400 Body height 167.[address] Rishi Vasquez Work Phone: [facility] Work Phone: 02-07-2022 08:55-0400 Body mass index (BMI) [Ratio] 26.9 kg/m2 Dr. Rishi Vasquez Work Phone: [facility] Work Phone: 02-07-2022 08:55-0400 Body weight 75.[address] Rishi Vasquez Work Phone: [facility] Work Phone: 02-07-2022 08:55-0400 Diastolic blood pressure 68 mm[Hg] Dr. Rishi Vasquez Work Phone: [facility] Work Phone: 02-07-2022 08:55-0400 Heart rate 63 /min Dr. Rishi Vasquez Work Phone: [facility] Work Phone: 02-07-2022 08:55-0400 Respiratory rate 18 /min Dr. Rishi Vasquez Work Phone: [facility] Work Phone: 02-07-2022 08:55-0400 SaO2% (BldA) [Mass fraction] 100 % Dr. Rishi Vasquez Work Phone: [facility] Work Phone: 02-07-2022 08:55-0400 Systolic blood pressure 152 mm[Hg] Dr. Rishi Vasquez Work Phone: [facility] Work Phone: 01-20-2022 09:42-0500 Body temperature 97.6 [degF] Dr. Rishi Vasquez Work Phone: [facility] Work Phone: 01-20-2022 09:42-0500 Diastolic blood pressure 56 mm[Hg] Dr. Rishi Vasquez Work Phone: [facility] Work Phone: 01-20-2022 09:42-0500 Heart rate 75 /min Dr. Rishi Vasquez Work Phone: [facility] Work Phone: 01-20-2022 09:42-0500 Respiratory rate 16 /min Dr. Rishi Vasquez Work Phone: [facility] Work Phone: 01-20-2022 09:42-0500 SaO2% (BldA) [Mass fraction] 98 % Dr. Rishi Vasquez Work Phone: [facility] Work Phone: 01-20-2022 09:42-0500 Systolic blood pressure 123 mm[Hg] Dr. Rishi Vasquez Work Phone: [facility] Work Phone: 12-29-2021 08:28-0500 Body mass index (BMI) [Ratio] 27.1 kg/m2 Dr. Rishi Vasquez Work Phone: [facility] Work Phone: 12-29-2021 08:28-0500 Body temperature 97.8 [degF] Dr. Rishi Vasquez Work Phone: [facility] Work Phone: 12-29-2021 08:28-0500 Body weight 76.[address] Rishi Vasquez Work Phone: [facility] Work Phone: 12-29-2021 08:28-0500 Diastolic blood pressure 64 mm[Hg] Dr. Rishi Vasquez Work Phone: [facility] Work Phone: 12-29-2021 08:28-0500 Heart rate 60 /min Dr. Rishi Vasquez Work Phone: [facility] Work Phone: 12-29-2021 08:28-0500 Respiratory rate 17 /min Dr. Rishi Vasquez Work Phone: [facility] Work Phone: 12-29-2021 08:28-0500 SaO2% (BldA) [Mass fraction] 97 % Dr. Rishi Vasquez Work Phone: [facility] Work Phone: 12-29-2021 08:28-0500 Systolic blood pressure 182 mm[Hg] Dr. Rishi Vasquez Work Phone: [facility] Work Phone: 10-18-2021 23:19-0500 Body mass index (BMI) [Ratio] 26.9 kg/m2 Dr. Rishi Vasquez Work Phone: [facility] Work Phone: 08-30-2017 15:31-0400 BMI (Body Mass Index) 29.78 kg/m2 Kwaku Moscoso MD [facility] [employer] Work Phone: 08-30-2017 15:31-0400 Body Temperature 98.1 [degF] Kwaku Moscoso MD [facility] [employer] Work Phone: 08-30-2017 15:31-0400 BP Diastolic 73 mm[Hg] Kwaku Moscoso MD [facility] [employer] Work Phone: 08-30-2017 15:31-0400 BP Systolic 156 mm[Hg] Kwaku Moscoso MD [facility] [employer] Work Phone: 08-30-2017 15:31-0400 Height 165.1 cm Kwaku Moscoso MD [facility] [employer] Work Phone: 08-30-2017 15:31-0400 Pulse (Heart Rate) 54 /min Kwaku Moscoso MD [facility] [employer] Work Phone: 08-30-2017 15:31-0400 Respiratory Rate 18 /min Kwaku Moscoso MD [facility] [employer] Work Phone: 08-30-2017 15:31-0400 Weight 81.19 kg Kwaku Moscoso MD [facility] [employer] Work Phone: 06-11-2017 10:53-0400 BMI (Body Mass Index) 29.7 kg/m2 [facility] Work Phone: 06-11-2017 10:53-0400 BP Diastolic 60 mm[Hg] [facility] Work Phone: 06-11-2017 10:53-0400 BP Systolic 142 mm[Hg] Gaye Kenroy [facility] Work Phone: 06-11-2017 10:53-0400 Height 167.64 cm Gaye Jasmine [facility] Work Phone: 06-11-2017 10:53-0400 [...] Mass Index) 30.08 kg/m2 Shaina Serna LPN [facility] Work Phone: 04-23-2017 11:14-0400 Body Temperature 98.7 [degF] Shaina Serna [facility]PN [facility] Work Phone: 04-23-2017 11:14-0400 Body weight 84.55 kg Sh[facility]a [facility] Work Phone: 04-23-2017 11:14-0400 BP Diastolic 72 mm[Hg] Shaina Serna LPN [facility] Work Phone: 04-23-2017 11:14-0400 BP Systolic 125 mm[Hg] Shaina Serna LPN [facility] Work Phone: 04-23-2017 11:14-0400 Height 167.64 cm Shaina Kareem STEPHENS [facility] Work Phone: 04-23-2017 11:14-0400 Pulse (Heart Rate) 60 /min Shaina Serna [facility]PN [facility] Work Phone: 04-23-2017 11:14-0400 Pulse Oximetry 98 % Shaina Kareem STEPHENS [facility] Work Phone: 04-23-2017 11:14-0400 Respiratory Rate 18 /min Shaina Kareem [facility]ENS [facility] Work Phone: 04-23-2017 11:14-0400 Weight 84.55 kg Marly Signs MD [facility] Work Phone: 02-06-2017 12:57-0400 Body Temperature 98.4 [degF] Shaina Serna LPN [facility] Work Phone: 02-06-2017 12:57-0400 Body weight 80.92 kg Shaina Serna LPN [facility] Work Phone: 02-06-2017 12:57-0400 BP Diastolic 76 mm[Hg] Shaina Serna LPN [facility] Work Phone: 02-06-2017 12:57-0400 BP Systolic 140 mm[Hg] Shaina Serna LPN [facility] Work Phone: 02-06-2017 12:57-0400 BSA (Body Surface Area) 1.91 m2 Shaina [facility] Work Phone: 02-06-2017 12:57-0400 Height 167.64 cm Shaina [facility] Work Phone: 02-06-2017 12:57-0400 Weight 80.92 kg Marly Signs MD [facility] Work Phone: 12-05-2016 12:56-0500 Pulse Oximetry 98 % Shaina Serna LPN [facility] Work Phone: 11-17-2016 07:54-0500 Body surface area Derived from formula 45.87 mL/min Shaina Serna ANGELO [facility] Work Phone: 05-25-2015 14:56-0400 Heart rate 55 /min Shaina Serna LPN [facility] Work Phone: 01-12-2014 13:16-0500 Heart rate 406 ms Shaina Serna LPN [facility] Work Phone: Encounters Encounter Date Encounter Type Care Provider Facility Start: 06-30-2025 ambulatory Rishi Vasquez Facilit y:[facility] Start: 05-26-2025 ambulatory Rishi Vasquez Facilit y:[facility] Start: 05-17-2025 Encounter for other preprocedural examination Russell Clement [facility] Start: 05-17-2025 Emergency department patient visit Rishi Vasquez Facility:[facility] Start: 05-13-2025 End: 05-13-2025 Abena VYAS -[facility] Work Phone: Start: 05-13-2025 End: 05-13-[address] Rishi Vasquez DO Work Phone: [facility] Work Phone: Start: 05-12-2025 Encounter for preprocedural cardiovascular examination Jarret Quiles [facility] Start: 05-11-2025 ambulatory Rishi Dewey y:[facility] Start: 05-11-2025 Non-patient / Non-visit Dr. Jarret walden MD -[facility] Start: 05-11-2025 Dr. Jarret Quiles MD -[facility] Start: 05-08-2025 End: 05-08-[address] Rishi Vasquez DO Work Phone: [facility] Work Phone: Start: 05-08-2025 End: 05-08-[address] Jarret Quiles MD -Cardiovascular Services Work Phone: Start: 05-08-2025 End: 05-08-2025 Dr. Jarret Quiles MD -Cardiovascular Services Work Phone: Start: 05-07-2025 End: 05-07-2025 Patient encounter procedure Rick Bergeron NP-Andrés -[facility] Work Phone: Start: 05-07-2025 End: 05-07-2025 Patient encounter status Rick Bergeron TOP DISTRIBUTION EXECUTIVE-C [facility] Comment on above: Vascular surgery in May Start: 05-07-2025 End: 05-07-2025 Rick Bergeron NP-C -[facility] Work Phone: Start: 05-07-2025 End: 05-08-[address] 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 Rishi Vasquez DO Work Phone: [facility] Work Phone: Start: 04-27-2025 End: 04-27-[address] Ciaran Renee MD -Ultrasound [facility] Work Phone: Start: 04-27-2025 End: 04-27-2025 Dr. Ciaran Renee MD -Ultrasound [facility] Work Phone: Start: 04-27-2025 End: 04-27-2025 ambulatory Rishi Vasquez Facility:[facility] Start: 04-23-2025 ambulatory Rishi Vasquez Facilit y:[facility] Start: 04-23-[address] Rishi ponce DO -Cardiac Rehab Work Phone: Start: 04-23-2025 Dr. Rishi Vasquez DO -Cardiac Rehab Work Phone: Start: 04-21-[address] Rishi ponce DO -Cardiac Rehab Work Phone: Start: 04-20-2025 Non-patient / Non-visit Dr. Russell dobbs MD -[facility] Start: 04-20-2025 End: 04-20-[address] Rishi Vasquez DO Work Phone: [facility] Work Phone: Start: 04-20-2025 End: 04-20-2025 Patient encounter procedure Abena Fiore PA -Cardiovascular Services Work Phone: Start: 04-20-2025 End: 04-20-2025 Dr. Russell Clement MD -[facility] Start: 04-20-2025 End: 04-20-2025 ambulatory Rishi Vasquez Facility:[facility] Start: 04-16-2025 End: 04-16-2025 Telephone encounter Rishi Melinda Pedro DO Work Phone: [facility] Comment on above: Assisted Plan of Care Start: 04-15-2025 ambulatory Rishi Taterison Facilit y:[facility] Start: 04-15-2025 Non-patient / Non-visit Dr. Russell dobbs MD -[facility] Start: 04-15-2025 Dr. Russell Clement MD -[facility] Start: 04-15-2025 End: 04-15-2025 Telephone encounter Fouzia Escobedo APRN.FLAKE CUTTER OPERATOR Work Phone: [facility] Start: 04-15-2025 End: 04-15-2025 Admission to same day surgery center Dr. Russell Clement MD -Micro Photographer/Special Procedures Work Phone: Start: 04-15-2025 End: 04-15-2025 Dr. Russell Clement MD -Micro Photographer/Special Procedures Work Phone: Start: 04-15-2025 End: 04-15-[address] Rishi Vasquez DO Work Phone: [facility] Work Phone: Start: 04-07-2025 End: 04-21-2025 ambulatory Rishi Vasquez DO Work Phone: [facility] Comment on above: Diabetes Start: 04-03-2025 End: 04-03-2025 Patient encounter procedure Abena VYAS -[facility] Work Phone: Start: 04-03-2025 End: 04-03-2025 Abena VYAS -[facility] Work Phone: Start: 04-03-2025 End: 04-03-[address] Rishi Vasquez DO Work Phone: [facility] Work Phone: Start: 03-27-2025 End: 03-27-2025 Patient encounter procedure Yumiko Podlogcarlo 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.FLAKE CUTTER OPERATOR Work Phone: [facility] Comment on above: Hospital discharge f ollow-up (Primary Dx); Diabetic foot ulcer associated with type 2 diabetes mellitus, unspecified laterality, unspecified part of foot, unspecified ulcer stage (HCC); Abnormality of gait; Falling episodes Start: 03-27-2025 End: 03-27-2025 ambulatory YUMIKO PODLOGAR Facility:[facility] Start: 03-26-2025 End: 03-26-2025 Telephone encounter Rishi Vasquez DO Work Phone: [facility] Comment on above: Patient Update Start: 03-24-2025 End: 03-25-2025 Telephone encounter Rishi Vasquez DO Work Phone: [facility] Comment on above: [facility] HH PT POC Start: 03-23-2025 End: 03-24-2025 Telephone encounter Rishi Vasquez DO Work Phone: [facility] Comment on above: HH Nursing POC Start: 03-20-2025 End: 03-23-2025 Telephone encounter Rishi Lawrence Pedro DO Work Phone: [facility] Comment on above: Orders Start: 03-19-2025 End: 03-19-[address] Phong Solomon MD -Cat Scan [facility] Work Phone: Start: 03-19-2025 End: 04-18-[address] Rishi Vasquez DO -Cardiac Rehab Work Phone: Start: 03-19-[address] Rishi ponce DO -Cardiac Rehab Work Phone: Start: 03-19-2025 End: 04-18-2025 Dr. Rishi Vasquez DO -Cardiac Rehab Work Phone: Start: 03-19-2025 End: 04-18-[address] Rishi Vasquez DO Work Phone: [facility] Work Phone: Start: 03-19-2025 End: 03-19-2025 ambulatory Rishi Vasquez Facility:[facility] Start: 03-13-2025 Non-patient / Non-visit Abena VYAS [facility] Start: 03-13-2025 Abena VYAS [facility] Start: 03-11-2025 End: 03-20-2025 Dr. Phong Solomon MD -Transitional Care Unit Start: 03-11-2025 ambulatory Rishi Vasquez Facilit y:[facility] Start: 03-11-2025 End: 03-20-2025 Evaluation and management of inpatient Dr. Phong Solomon MD -Transitional Care Unit Start: 03-11-2025 Non-patient / Non-visit Dr. Broderick Dempsey MD -[facility] Work Phone: Start: 03-11-2025 Dr. Broderick Dempsey MD -[facility] Work Phone: Start: 03-10-2025 Non-patient / Non-visit Dr. Broderick Dempsey MD -[facility] Work Phone: Start: 03-10-2025 Dr. Broderick Dempsey MD -[facility] Work Phone: Start: 03-10-2025 Non-patient / Non-visit Abena Fiore [facility] Start: 03-10-[address] [facility] Start: 03-09-2025 Non-patient / Non-visit Dr. Russell dobbs MD [facility] Start: 03-09-2025 Dr. Russell Clement MD [facility] Start: 03-08-2025 Non-patient / Non-visit Dr. Broderick Dempsey MD [facility] Work Phone: Start: 03-08-2025 Dr. Broderick Dempsey MD -[facility] Work Phone: Start: 03-07-2025 ambulatory Rishi Vasquez Facilit y:[facility] Start: 03-07-2025 End: 03-11-2025 Evaluation and management of inpatient Dr. Maddie Merchant MD -Medical Surgical 3 Work Phone: Start: 03-07-2025 End: 03-11-2025 Dr. Broderick Dempsey MD -Medical Surgical 3 Work Phone: Start: 02-26-2025 End: 02-26-[address] Rishi Vasquez DO Work Phone: [facility] Work Phone: Start: 02-26-2025 End: 02-26-[address] Patel Irene DPM -Laboratory, Specimen Work Phone: Start: 02-26-2025 End: 02-26-2025 Dr. Patel Irene DPM -Laboratory Specim en Work Phone: Start: 02-26-2025 End: 02-26-2025 ambulatory Rishi Vasquez Facility:[facility] Start: 02-17-2025 End: 03-18-[address] Rishi Vasquez DO -Cardiac Rehab Work Phone: Start: 02-17-[address] Rishi ponce DO -Cardiac Rehab Work Phone: Start: 02-17-2025 End: 03-18-2025 Dr. Rishi Vasquez DO -Cardiac Rehab Work Phone: Start: 02-17-2025 End: 03-18-2025 ambulatory Rishi Vasquez Facility:[facility] Start: 02-16-2025 End: 02-16-[address] Rishi Vasquez DO Work Phone: [facility] Work Phone: Start: 02-16-2025 End: 02-16-[address] Rishi Vasquez DO -Laboratory, Specimen Work Phone: Start: 02-16-2025 End: 02-16-2025 Ciaran Berry DPM -Laboratory Specime n Work Phone: Start: 02-16-2025 End: 02-16-2025 ambulatory Ciaran Berry Facility:[facility] Start: 02-05-2025 End: 02-16-[address] Rishi Vasquez DO Work Phone: [facility] Work Phone: Start: 02-05-2025 End: 02-16-[address] Rishi Vasquez DO -Cardiac Rehab Work Phone: Start: 02-05-2025 End: 02-16-2025 Dr. Rishi Vasquez DO -Cardiac Rehab Work Phone: Start: 01-06-2025 ambulatory Brandon Membreno Facility :[facility] Start: 01-06-2025 Non-patient / Non-visit Dr. Russell dobbs MD -[facility] Start: 01-06-2025 End: 01-06-[address] Brandon Membreno DPM -Cardiovascular Services Work Phone: Start: 01-06-2025 End: 01-06-2025 ambulatory Rishi Vasquez Facility:[facility] Start: 12-30-2024 End: 12-30-[address] Patel Irene DPM -Laboratory, Specimen Work Phone: Start: 12-30-2024 End: 12-30-2024 ambulatory Patel Irene Facility:[facility] Start: 12-25-2024 End: 12-26-2024 Refill Rishi Vasquez DO Work Phone: [facility] Comment on above: Refill Request Start: 12-23-2024 End: 01-16-[address] Rishi Vasquez DO -Cardiac Rehab Work Phone: Start: 12-23-2024 End: 01-16-2025 ambulatory [facility] Facility:[facility] Start: 12-18-2024 End: 12-19-2024 ambulatory [facility] Facility:[facility] Start: 12-18-2024 End: 12-19-[address] Rishi Vasquez DO -Cardiac Rehab Work Phone: Start: 12-17-2024 End: 12-17-[address] Brandon Membreno DPM -Laboratory, Specimen Work Phone: Start: 12-17-2024 End: 12-17-2024 ambulatory Rishi Taterison Facility:[facility] Start: 12-05-2024 End: 12-05-2024 Patient encounter procedure Rishi Vasquez DO Work Phone: [facility] Comment on above: Diabetes mellitus ty pe [...] 12-05-2024 End: 12-05-2024 ambulatory RISHI L VASQUEZ Facility:[facility] Start: 12-01-2024 End: 12-01-2024 ambulatory RISHI L VASQUEZ Facility:[facility] Start: 11-29-2024 ambulatory Rishi Taterison Facilit y:[facility] Start: 11-18-2024 End: 11-18-2024 ambulatory Rishi Taterison Facility:[facility] Start: 11-18-2024 End: 11-18-[address] Rishi Vasquez DO -Cardiac Rehab Work Phone: Start: 10-14-2024 End: 10-18-2024 ambulatory Rishi Vasquez Facility:[facility] Start: 09-18-2024 End: 09-18-2024 ambulatory Rishi Vasquez Facility:[facility] Start: 09-10-2024 End: 09-15-2024 Telephone encounter Rishi Taterison DO Work Phone: [facility] Comment on above: Patient Question Start: 09-05-2024 End: 09-05-2024 Patient encounter procedure [facility] Work Phone: [facility] Start: 09-05-2024 End: 09-05-2024 ambulatory [facility] Work Phone: [facility] Start: 08-18-2024 End: 08-19-2024 Telephone encounter Rishi Taterison DO Work Phone: [facility] Comment on above: Patient Question (Fi sh oil - [place] 3) Start: 08-16-2024 End: 08-18-2024 ambulatory Rishi L Vasquez DO Work Phone: [facility] Comment on above: OMEGA 3 FROM FISH OI L Start: 08-14-2024 End: 08-18-2024 ambulatory Rishi Vasquez Facility:[facility] Start: 08-08-2024 End: 08-12-2024 Telephone encounter Rishi L Vasquez DO Work Phone: [facility] Comment on above: Patient Update Start: 08-01-2024 End: 08-01-2024 ambulatory Curtis Franco Facility:[facility] Start: 07-17-2024 End: 07-19-2024 ambulatory Rishi Vasquez Facility:[facility] Start: 06-19-2024 End: 06-19-2024 ambulatory Curtis Franco Facility:[facility] Start: 06-17-2024 End: 06-18-2024 ambulatory Rishi Vasquez Facility:[facility] Start: 06-13-2024 Telephone encounter Rishi julian DO Work Phone: [facility] Start: 06-10-2024 ambulatory No Pcp 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 Navigate [facility] Start: 06-10-2024 Patient encounter procedure No Pcp 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 [facility] Start: 06-04-2024 Documentation procedure Mammog rain Coordinator [facility] Department Start: 06-04-2024 Letter encounter Mammography Coordinator [facility] Department Start: 06-04-2024 Telephone encounter Rishi julian DO Work Phone: [facility] Comment on above: Results Start: 06-04-2024 End: 06-04-2024 ambulatory RISHI VASQUEZ Facility:[facility] Start: 06-04-2024 End: 06-04-2024 Patient encounter procedure Rishi Vasquez DO Work Phone: [facility] Comment on above: Chronic midline low back [...] Start: 06-03-2024 End: 06-03-2024 ambulatory RISHI VASQUEZ Facility:[facility] Start: 06-03-2024 End: 06-03-2024 Subsequent hospital visit by physician Screen Mammo [facility] Comment on above: Encounter for screen ing mammogram for malignant neoplasm of breast [Z12.31] Start: 05-30-2024 End: 05-30-2024 ambulatory CLARY ANDRES Facility:[facility] Start: 05-19-2024 Telephone encounter Rishi julian DO Work Phone: [facility] Comment on above: Orders Start: 05-18-2024 ambulatory Rishi contreras DO Work Phone: [facility] Comment on above: Blood work Start: 03-22-2024 Refill Rishi Wright son DO Work Phone: [facility] Comment on above: Refill Request Start: 03-20-2024 End: 03-20-2024 ambulatory Anselmo Marr PT Work Phone: [facility] Comment on above: 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 Rishi Vasquez Work Phone: [facility] Work Phone: Start: 03-18-2024 End: 03-18-[address] Rishi Vasquez Work Phone: [facility]-Cardiac Rehab Work Phone: Start: 03-13-[address] Jim Vasquez Work Phone: [facility]-Cardiac Rehab Work Phone: Start: 03-11-2024 Non-patient / Non-visit Dr. Marcie Vasquez Work Phone: [facility] Start: 03-11-2024 End: 03-11-[address] Rishi Vasquez Work Phone: [facility] Work Phone: Start: 03-11-2024 End: 03-11-[address] Rishi Vasquez Work Phone: [facility]-Cardiovascul ar Services Work Phone: Start: 03-10-2024 End: 03-10-2024 ambulatory Keisha Herreraba RN HEMODIALYSIS CHARGE Work Phone: [facility] Comment on above: 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) Start: 03-06-2024 End: 03-06-2024 ambulatory Anselmo Golias PT Work Phone: [facility] Comment on above: 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) Start: 02-14-2024 End: 02-17-[address] Rishi Vasquez Work Phone: [facility] Work Phone: Start: 02-14-2024 End: 02-17-[address] Rishi Vasquez Work Phone: [facility]-Cardiac Rehab Work Phone: Start: 02-07-2024 End: 02-07-[address] Rishi Vasquez Work Phone: [facility] Work Phone: Start: 02-05-2024 End: 02-05-2024 ambulatory Keisha Guzman RN HEMODIALYSIS CHARGE Work Phone: [facility] Comment on above: 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) Start: 01-30-2024 End: 01-30-2024 ambulatory Anselmo Golias PT Work Phone: [facility] Comment on above: 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) Start: 01-28-2024 Refill Clary Andres APRN.FLAKE CUTTER OPERATOR Work Phone: [facility] Comment on above: Refill Request Start: 01-23-2024 End: 01-23-2024 ambulatory Anselmo Golias PT Work Phone: [facility] Comment on above: 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) Start: 01-17-2024 End: 01-17-2024 ambulatory [facility] Work Phone: Start: 01-17-2024 End: 01-17-2024 Discharged Recurring [facility]-Cardiac Rehab Work Phone: Start: 01-15-2024 End: 01-15-2024 ambulatory Anselmo Marr PT Work Phone: [facility] Comment on above: Chronic midline low back pain without sciatica Start: 01-14-2024 ambulatory Rishi contreras DO Work Phone: [facility] Start: 01-14-2024 Patient encounter procedure Rishi Vasquez DO Work Phone: [facility] Comment on above: APPOINTMENT WITH GEN PEPPER SURGEON Start: 01-10-2024 Telephone encounter Rishi julian DO Work Phone: [facility] Comment on above: Results Start: 12-27-2023 ambulatory Rishi contreras DO Work Phone: [facility] Comment on above: MEDICATION QUESTION Start: 12-27-2023 Telephone encounter Rishi julian DO Work Phone: [facility] Comment on above: Patient Update Start: 12-20-2023 End: 12-20-2023 Subsequent hospital visit by physician [facility] Work Phone: Radiology Comment on above: Multiple thyroid nod ules [E04.2] Start: 12-18-2023 End: 12-19-2023 Discharged Recurring [facility]Card[facility] Work Phone: Start: 12-10-2023 End: 12-10-2023 Subsequent hospital visit by physician [facility] Work Phone: Radiology Comment on above: Chronic midline low back pain without sciatica [M54.50, G89.29] Start: 11-15-2023 End: 11-18-2023 ambulatory [facility] Work Phone: Start: 11-15-2023 End: 11-18-2023 Discharged Recurring [facility]-Card[facility] Work Phone: Start: 10-18-2023 End: 10-18-[address] Rishi Vasquez Work Phone: [facility] Work Phone: Start: 10-18-2023 End: 10-18-[address] Rishi Vasquez Work Phone: [facility]-Cardiac Rehab Work Phone: Start: 10-03-2023 Refill Rishi contreras DO Work Phone: [facility] Comment on above: Refill Request Start: 09-18-2023 End: 09-18-[address] Rishi Vasquez Work Phone: [facility] Work Phone: Start: 09-18-2023 End: 09-18-[address] Rishi Vasquez Work Phone: [facility]-Cardiac Rehab Work Phone: Start: 09-13-[address] Jim Vasquez Work Phone: [facility] Work Phone: Start: 08-31-2023 End: 08-31-2023 ambulatory [facility] Work Phone: [facility] Start: 08-18-2023 Telephone encounter Rishi julian DO Work Phone: [facility] Comment on above: Results Start: 08-16-2023 End: 08-16-[address] Rishi Vasquez Work Phone: [facility]-Laboratory Work Phone: Start: 08-16-2023 End: 08-18-[address] Rishi Vasquez Work Phone: [facility] Work Phone: Start: 08-16-2023 End: 08-18-[address] Rishi Vasquez Work Phone: [facility]-Cardiac Rehab Work Phone: Start: 07-31-2023 Telephone encounter Rishi julian DO Work Phone: [facility] Comment on above: Results Start: 07-31-[address] Jim Vasquez Work Phone: [facility] Work Phone: Start: 07-26-2023 End: 07-26-[address] Rishi Vasquez Work Phone: [facility] Work Phone: Start: 07-26-2023 End: 07-26-[address] Rishi Vasquez Work Phone: [facility]-Laboratory, Specimen Work Phone: Start: 07-19-2023 End: 07-19-[address] Rishi Vasquez Work Phone: [facility] Work Phone: Start: 07-19-2023 End: 07-19-[address] Rishi Vasquez Work Phone: [facility]-Cardiac Rehab Work Phone: Start: 07-10-2023 Telephone encounter Danyelle allen PA-C Work Phone: [facility] Comment on above: Results Start: 07-10-2023 End: 07-10-2023 Subsequent hospital visit by physician Diagnostic Mammo [facility] Comment on above: Abnormal mammogram [ R92.8] Start: 07-03-2023 End: 07-03-[address] Rishi Vasquez Work Phone: [facility] Work Phone: Start: 06-14-2023 End: 06-18-[address] Rishi Vasquez Work Phone: [facility] Work Phone: Start: 06-14-2023 End: 06-18-[address] Rishi Vasquez Work Phone: [facility] Work Phone: Start: 06-14-[address] Jim Vasquez Work Phone: [facility] Work Phone: Start: 06-12-2023 Non-patient / Non-visit Dr. Marcie Vasquez Work Phone: [facility] Start: 06-12-2023 End: 06-12-[address] Rishi Vasquez Work Phone: [facility] Work Phone: Start: 06-12-2023 End: 06-12-[address] 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); CKD stage G3b/A1, GFR 30-44 and albumin creatinine ratio <30 mg/g (HCC); Dyslipidemia (high LDL; low HDL); Vitamin D deficiency; Multinodular thyroid; Essential hypertension; Arthritis, multiple joint involvement Start: 05-29-2023 Documentation procedure Mammog rain Coordinator [facility] Start: 05-29-2023 Letter encounter Mammography Coordinator [facility] Department Start: 05-29-2023 Telephone encounter Danyelle allen PA-C Work Phone: [facility] Comment on above: Results Start: 05-29-2023 End: 05-29-2023 Subsequent hospital visit by physician Screen Mammo [facility] Comment on above: Encounter for screen ing mammogram for malignant neoplasm of breast [Z12.31] Start: 05-27-2023 Refill Rishi Melinda Adriana son DO Work Phone: [facility] Comment on above: Refill Request Start: 05-17-2023 End: 05-18-[address] Rishi Vasquez Work Phone: [facility] Work Phone: Start: 05-17-2023 End: 05-18-[address] Rishi Vasquez Work Phone: [facility] Work Phone: Start: 04-20-2023 End: 04-20-[address] Rishi Vasquez Work Phone: [facility] Work Phone: Start: 04-17-2023 End: 04-18-2023 ambulatory [facility] Work Phone: Start: 04-17-2023 End: 04-18-2023 Discharged Recurring [facility] Start: 03-15-2023 End: 03-18-2023 ambulatory [facility] Work Phone: Start: 03-15-2023 End: 03-18-2023 Discharged Recurring [facility] Start: 03-12-2023 Telephone encounter Rishi julian DO Work Phone: [facility] Comment on above: Release Of Medical R ecords Start: 02-27-2023 ambulatory Rishi Wright son DO Work Phone: [facility] [place] Start: 02-15-2023 End: 02-16-[address] Rishi Vasquez Work Phone: [facility] Work Phone: Start: 02-15-2023 End: 02-16-[address] Rishi Vasquez Work Phone: [facility] Start: 02-05-2023 ambulatory Rishi Wright son DO Work Phone: [facility] Comment on above: MAMOGRAM Start: 01-22-2023 Telephone encounter Rishi strangekris DO Work Phone: [facility] Comment on above: Appointment; Phuong VYAS Start: 01-16-2023 End: 01-16-[address] Rishi Vasquez Work Phone: [facility] Work Phone: Start: 01-16-2023 End: 01-16-[address] Rishi Vasquez Work Phone: [facility] Start: 01-08-2023 Refill Clary Andres APRN.CNP Work Phone: [facility] Comment on above: Refill Request Start: 01-04-2023 Telephone encounter Rishi strangekris DO Work Phone: [facility] Comment on above: Results Start: 12-29-2022 End: 12-29-2022 Subsequent hospital visit by physician [facility] Work Phone: Nuclear Medicine Comment on above: Abnormal thyroid fun ction test [R94.6] Start: 12-28-2022 End: 12-28-2022 Subsequent hospital visit by physician [facility] Work Phone: Nuclear Medicine Comment on above: Abnormal thyroid fun ction test [R94.6] Start: 12-26-2022 Telephone encounter Rishi julian DO Work Phone: [facility] Comment on above: Results Start: 12-20-2022 End: 12-20-2022 Subsequent hospital visit by physician [facility] Work Phone: Radiology Comment on above: Abnormal thyroid fun ction test [R94.6] Start: 12-19-2022 End: 12-19-[address] Rishi Vasquez Work Phone: [facility] Work Phone: Start: 12-19-2022 End: 12-19-[address] Rishi Vasquez Work Phone: [facility] Start: 12-07-2022 Telephone encounter Rishi julian DO Work Phone: [facility] Comment on above: testing question Start: 12-05-2022 End: 12-05-2022 Patient encounter procedure Rishi Vasquez DO Work Phone: [facility] Comment on above: Diabetes mellitus ty pe 2 with peripheral artery disease (HCC) (Primary Dx); Peripheral vascular occlusive disease (HCC); Dyslipidemia (high LDL; low HDL); Essential hypertension; Dizziness; Carotid atherosclerosis, bilateral; Biceps rupture, proximal, left, initial encounter; Chronic kidney disease, stage 3a (HCC) Start: 11-16-2022 End: 11-18-[address] Rishi Vasquez Work Phone: [facility] Work Phone: Start: 11-16-2022 End: 11-18-[address] Rishi Vasquez Work Phone: [facility] Start: 11-02-[address] Jim Vasquez Work Phone: [facility] Start: 10-27-2022 Non-patient / Non-visit Dr. Marcie Vasquez Work Phone: [facility] Start: 10-27-2022 End: 10-27-[address] Rishi Vasquez Work Phone: [facility] Work Phone: Start: 10-27-2022 End: 10-27-[address] Rishi Vasquez Work Phone: [facility] Start: 10-17-2022 End: 10-18-[address] Rishi Vasquez Work Phone: [facility] Work Phone: Start: 10-17-2022 End: 10-18-[address] [facility] Start: 09-23-2022 End: 09-23-2022 Patient encounter procedure Camille Mitchell PA-C Work Phone: [facility] Comment on above: Acute cystitis with hematuria (Primary Dx) Start: 09-14-2022 End: 09-18-[address] Rishi Vasquez Work Phone: [facility] Work Phone: Start: 09-14-2022 End: 09-18-[address] Rishi [facility]quez [facility] Start: 09-09-2022 End: 09-09-2022 ambulatory [facility] Work Phone: [facility] Comment on above: Arrived Start: 09-06-2022 Telephone encounter Rishi julian DO Work Phone: [facility] Comment on above: Results Start: 08-17-2022 End: 08-18-[address] Rishi Vasquez Work Phone: [facility] Work Phone: Start: 08-17-2022 End: 08-18-[address] Rishi [facility]quez [facility] Start: 08-15-2022 End: 08-15-2022 Subsequent hospital visit by physician Xr [facility] Work Phone: Radiology Comment on above: Injury of sternum, i nitial encounter [S29.9XXA] Start: 08-15-2022 End: 08-15-2022 Patient encounter procedure Camille Mitchell PA-C Work Phone: [facility] Comment on above: Injury of sternum, i nitial encounter (Primary Dx); Wrist injury, right, initial encounter Start: 08-08-2022 End: 08-08-[address] Rishi Vasquez Work Phone: [facility] Start: 07-18-2022 End: 07-19-[address] Rishi Vasquez Work Phone: [facility] Work Phone: Start: 07-18-2022 End: 07-19-[address] Rishi Vasquez Work Phone: [facility] Start: 06-29-2022 End: 06-29-[address] Rishi Vasquez Work Phone: [facility] Start: 06-22-2022 Non-patient / Non-visit Dr. Marcie Vasquez Work Phone: [facility] Start: 06-22-2022 End: 06-22-[address] Rishi Vasquez Work Phone: [facility] Start: 06-17-2022 End: 06-17-2022 Subsequent hospital visit by physician Xr [facility] Work Phone: Radiology Comment on above: Acute pain of right shoulder [M25.511] Start: 06-17-2022 End: 06-17-2022 Patient encounter procedure Kena Sims APRN.FLAKE CUTTER OPERATOR Work Phone: [facility] Comment on above: Acute pain of right shoulder (Primary Dx) Start: 06-15-2022 End: 06-18-2022 Discharged Recurring [facility] Start: 06-05-2022 Documentation procedure Mammog rain Coordinator [facility] Start: 06-05-2022 Letter encounter Mammography Coordinator [facility] Department Start: 06-05-2022 Telephone encounter Dillon Cid APRN.FLAKE CUTTER OPERATOR Work Phone: [facility] Comment on above: Results; Appointment Start: 06-05-2022 End: 06-05-2022 Subsequent hospital visit by physician Screen Mammo [facility] Comment on above: Encounter for screen ing mammogram for malignant neoplasm of breast [Z12.31] Start: 05-31-2022 End: 05-31-2022 Patient encounter procedure Rishi Vasquez DO Work Phone: [facility] Comment on above: Diabetes mellitus ty pe 2 with peripheral artery disease (HCC) (Primary Dx); Peripheral vascular occlusive disease (HCC); Vitamin D deficiency; Stage 3 chronic kidney disease, unspecified whether stage 3a or 3b CKD (HCC); Essential hypertension; Dyslipidemia (high LDL; low HDL); Arthritis, multiple joint involvement; Coronary artery disease involving [place] heart, unspecified vessel or lesion type, unspecified whether angina present; Fatigue, unspecified type Start: 05-24-2022 Telephone encounter Rishi julian DO Work Phone: General Surgery Comment on above: Outpatient [place] [facility] Start: 05-18-2022 End: 05-18-2022 Discharged Recurring [facility] Start: 05-01-2022 Refill Rishi Tatedolly contreras DO Work Phone: [facility] Comment on above: Refill Request Start: 04-25-2022 ambulatory Rishi contreras DO Work Phone: [facility] Comment on above: BLOOD WORK Start: 04-21-2022 Refill Dillon mcclure APRN.FLAKE CUTTER OPERATOR Work Phone: [facility] Comment on above: Refill Request Start: 04-18-2022 End: 04-18-[address] Rishi Vasquez Work Phone: [facility] Start: 03-22-2022 Refill Rishi Wright son DO Work Phone: [facility] Comment on above: Refill Request Start: 03-16-2022 End: 03-18-[address] Rishi [facility]quez [facility] Start: 02-24-2022 Telephone encounter Dillon Cid APRN.FLAKE CUTTER OPERATOR Work Phone: [facility] Comment on above: Results Start: 02-16-2022 End: 02-16-[address] Rishi Vasquez Work Phone: [facility] Start: 02-07-2022 End: 02-07-[address] Rishi Vasquez Work Phone: [facility] Start: 01-20-2022 Non-patient / Non-visit Dr. Marcie Vasquez Work Phone: [facility] Start: 01-20-2022 End: 01-20-2022 Admission to same day surgery center Dr. Rishi Vasquez Work Phone: [facility] Start: 01-10-2022 End: 01-16-[address] Rishi Vasquez Work Phone: [facility] Start: 12-29-2021 End: 12-29-[address] Rishi Vasquez Work Phone: [facility] Start: 12-15-2021 End: 12-19-[address] Rishi Vasquez Work Phone: [facility] Start: 11-17-2021 End: 11-18-[address] Rishi Vasquez Work Phone: [facility] Procedures Date Procedure Procedure Detail [...] Total cholesterol:HD L ratio measurement Dr. Rishi Vasquez DO Work Phone: Start: 03-11-2025 Blood count smear mc rscp w/mnl difrntl [...] Start: 05-29-2023 End: 05-29-2023 Mammography Clary Andres 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.FLAKE CUTTER OPERATOR Work Phone: Start: 12-29-2022 Thyroid uptake w/blo od flow sngle/mult jamari natalia Rishi Lawrence Vasquez DO Work Phone: Start: 12-20-2022 Us soft tissue head & neck real time imge docm Rishi Lawrence Vasquez DO Work Phone: Start: 09-23-2022 Urnls dip stick/tabl et rgnt auto w/o microscopy Patel Aquino 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.FLAKE CUTTER OPERATOR Work Phone: Start: 09-09-2022 INFLUENZA SEASONAL QUADRIVALENT HIGH DOSE AGE 65+ Rishi Melinda Del Rosarioon DO Work Phone: Start: 08-15-2022 Radex wrist complete minimum 3 views Camille Mitchell PA-C Work Phone: Start: 06-17-2022 Radex shoulder compl ete minimum 2 views Kena Schrader 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.FLAKE CUTTER OPERATOR Work Phone: Start: 06-05-2022 End: 06-05-2022 Screening mammography bi 2-view breast inc cad Rishi Melinda Vasquez DO Work Phone: Start: 05-31-2022 Hemoglobin A1c/Hemoglobin.total in Blood Rishi Melinda TateVasquez DO Work Phone: Start: 01-20-2022 Colonoscopy [facility] 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.FLAKE CUTTER OPERATOR Work Phone: Start: 06-10-2021 Mammography [facility] 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.FLAKE CUTTER OPERATOR Work Phone: Start: 06-11-2017 End: 06-11-2017 ISAC [...] [Mass/volume] in Serum or Plasma Rebekah Castrejon TOP DISTRIBUTION EXECUTIVE Work Phone: Start: 02-06-2017 End: 02-06-2017 Dietary management education, guidance, and counseling Shaina Serna LPN Start: 02-06-2017 End: 02-07-2017 Thyroid stimulating hormone (TSH) Rebekah Castrejon TOP DISTRIBUTION EXECUTIVE Work Phone: Start: 02-06-2017 End: 02-08-2017 Thyroperoxidase antibody Rebekah Castrejon TOP DISTRIBUTION EXECUTIVE Work Phone: Start: 02-06-2017 End: 02-07-2017 Thyroxine (T4) free Rebekah Castrejon TOP DISTRIBUTION EXECUTIVE Work Phone: Start: 02-06-2017 End: 02-07-2017 Triiodothyronine (T3) free Rebekah Castrejon TOP DISTRIBUTION EXECUTIVE Work Phone: Start: 01-08-2017 End: 01-15-2017 *BMP [...] 01-04-2017 End: 01-15-2017 *CBC with Differential Marly Patnio MD Start: 01-04-2017 End: 01-04-2017 Bacteria identified [...] 01-01-2017 End: 01-02-2017 *CBC with Differential Marly J Signs Start: 01-01-2017 End: 01-02-2017 C reactive protein [Mass/volume] in Serum or Plasma by High sensitivity method Marly J Signs Start: 01-01-2017 End: 01-02-2017 Erythrocyte sedimentation rate Marly J Signs Start: 01-01-2017 End: 01-02-2017 *CBC with Differential Marly J Signs Start: 01-01-2017 End: 01-02-2017 C reactive protein (hsCRP) Marly J Signs Start: 01-01-2017 End: 01-02-2017 Erythrocyte sedimentation rate Marly J Signs Start: 12-20-2016 End: 12-20-2016 Radex foot complete minimum 3 views Marly J Signs Start: 12-20-2016 End: 12-20-2016 Colonoscopy Shaina Serna LPN Start: 12-20-2016 End: 12-20-2016 X-ray exam of foot Marly J Sukumar LUNDBERG Start: 12-18-2016 End: 12-20-2016 *CDIF - Clostridium Diff. Toxin Stool Marly J Sukumar LUNDBERG Start: 12-18-2016 End: 12-20-2016 *CDIF - Clostridium Diff. Toxin Stool Marly J Sukumar LUNDBERG Start: 12-13-2016 End: 12-15-2016 Radex foot complete minimum 3 views Marly J Sukumar LUNDBERG Start: 12-13-2016 End: 12-15-2016 X-ray exam of foot Marly J Signs Start: 12-05-2016 End: 12-05-2016 ISAC Ch MD [...] MD Work Phone: Start: 12-29-2014 End: 12-29-2014 TENZINN Brandon Ch MD Work Phone: Start: 12-29-2014 [...] 06-12-2014 End: 06-12-2014 Follow Up Appt Other LILLIAM Rodriguez-C Work Phone: Start: 06-12-2014 End: 06-18-2014 24 hour holter monitor LILLIAM Rodriguez-C Work Phone: Start: 06-12-2014 End: 06-22-2014 Carotid duplex Ira Lopez PA-C Work Phone: Start: 06-12-2014 End: 06-12-2014 Follow Up Appt Other LILLIAM Rodriguez-C Work Phone: Start: 02-02-2014 End: 04-27-2014 Cardiac [...] MD Work Phone: Start: 01-12-2014 End: 01-12-2014 DJN Brandon Ch MD Work Phone: Start: 01-12-2014 [...] RSV Vaccine (1 - 1-dose 75+ series) [facility] Start: 01-20-2027 Colonoscopy COLONOSCOPY [facility] Start: 01-20-2027 COLORECTAL CANCER SCREENING COLORECTAL CANCER SCREENING [facility] Start: 01-20-2027 Screening for malignant neoplasm of colon [facility] Start: 04-30-2026 Annual PCP Team Chronic Disease Visit Annual PCP Team Chronic Disease Visit [facility] Start: 04-30-2026 Covid-19 Vaccine ( season) Covid-19 Vaccine ( season) [facility] Comment on above: Postponed from 07/20/2024 (Declined at t his time) Start: 04-30-2026 Shingrix Vaccine (1 of 2) Shingrix Vaccine (1 of 2) [facility] Comment on above: Postponed from 2002 (Declined at t his time) Start: 04-30-2026 Urine microalbumin profile DTaP,Tdap,Td Vaccine (2 - Td or Tdap) [facility] Comment on above: Postponed from 04/24/2023 (Declined at t his time) Start: 03-27-2026 Annual PCP Team Chronic Disease Visit Annual PCP Team Chronic Disease Visit [facility] Start: 12-05-2025 Annual PCP Team Chronic Disease Visit Annual PCP Team Chronic Disease Visit [facility] Start: 12-05-2025 BP Controlled (<130/80) BP Controlled (<130/80) [facility] Start: 12-01-2025 Complete blood count Hemoglobin/Hematocrit [facility] Start: 12-01-2025 Creatinine measurement Serum Creatinine [facility] Start: 12-01-2025 Hepatitis B surface antibody level LDL Cholesterol [facility] Start: 06-16-2025 End: 06-16-2025 Patient encounter procedure 06/16/2025 12:00 PM EDT Office Visit [facility] [address] [place] [address] Rishi Vasquez, DO [address] [place] [address] LVM 1st attempt Physical [facility] Comment on above: LVM 1st attempt Physical Start: 06-09-2025 End: 06-09-2025 Patient encounter procedure 06/09/2025 9:00 AM EDT Office Visit [facility] [address] [place] [address] Rishi Vasquez, DO [address] [place] [address] Physical [facility] Comment on above: Physical Start: 06-08-2025 End: 06-08-2025 ambulatory 06/08/2025 8:30 AM EDT Results Only [place] [facility] [address] [place] [address] [place] [facility] Start: 06-04-2025 Annual PCP Team Chronic Disease Visit Annual PCP Team Chronic Disease Visit [facility] Start: 06-04-2025 BP Controlled (<130/80) BP Controlled (<130/80) [facility] Start: 06-04-2025 End: 06-04-2025 Patient encounter procedure 06/04/2025 9:30 AM EDT Appointment Mammogram [address] [place] [address] Encounter for screening mammogram for malignant neoplasm of breast [Z12.31] Mammogram Comment on above: Encounter for screening mammogram for ma lignant neoplasm of breast [Z12.31] Start: 06-03-2025 Screening for malignant neoplasm of breast Mammogram Screening [facility] Start: 06-02-2025 Glaucoma screening Dilated Retinal Exam [facility] Start: 05-31-2025 Hemoglobin A1c measurement HbA1C [facility] Start: 05-30-2025 Complete blood count Hemoglobin/Hematocrit [facility] Start: 05-30-2025 Creatinine measurement Serum Creatinine [facility] Start: 05-30-2025 Hepatitis B surface antibody level LDL Cholesterol [facility] Start: 04-15-2025 Patient discharge [facility] Start: 04-02-2025 Diabetic foot examination Diabetic Foot Exam [facility] Start: 03-27-2025 End: 03-27-2025 Patient encounter procedure 03/27/2025 10:00 AM EDT Office Visit [facility] [address] [place] [address] PodlogarYumiko APRN.FLAKE CUTTER OPERATOR [address] [place] [address] Discharged 03/20/25 [facility] - Adult failure to thrive, falls, rabdo (no availability within recommended one week F/U with PCP dyad) [facility] Comment on above: Discharged 03/20/25 [facility] - Adult failure to thrive, falls, rabdo (no availability within recommended one week F/U with PCP dyad) Start: 03-20-2025 Patient discharge [facility] Start: 03-19-2025 Developing a treatment plan [facility] Start: 03-19-2025 Development of care plan [facility] Start: 03-19-2025 End: 03-19-2025 [facility] Start: 03-19-2025 End: 03-19-2025 Administration of blood product [facility] Start: 03-18-2025 Referral to service [facility] Start: 03-17-2025 [facility] Start: 03-12-2025 Application of intermittent pneumatic compression device [facility] Start: 03-12-2025 Development of care plan [facility] Start: 03-12-2025 Developing a treatment plan [facility] Start: 03-11-2025 Consultation [facility] Start: 03-11-2025 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 [facility] Start: 03-11-2025 Referral to vascular surgeon [facility] Start: 03-11-2025 Contact precautions [facility] Start: 03-11-2025 Wound care [facility] Start: 03-11-2025 Admission procedure [facility] Start: 03-11-2025 Introduction of urinary catheter [facility] Start: 03-11-2025 Measuring intake and output [facility] Start: 03-11-2025 Patient referral to dietitian [facility] Start: 03-11-2025 Referral to occupational therapist [facility] Start: 03-11-2025 Referral to service [facility] Start: 03-11-2025 Vital signs measurements 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 Start: 03-08-2025 [facility] Start: 03-08-2025 Referral to vascular surgeon [facility] Start: 03-08-2025 Application of intermittent pneumatic compression device [facility] Start: 03-07-2025 Following clinical pathway protocol [facility] Start: 03-07-2025 Assessment of risk of venous thromboembolism [facility] Start: 03-07-2025 Care regimes management [facility] Start: 03-07-2025 Consultation for treatment [facility] Start: 03-07-2025 Elevation of affected extremity [facility] Start: 03-07-2025 Fall prevention [facility] Start: 03-07-2025 Insertion of catheter into peripheral vein [facility] Start: 03-07-2025 Introduction of urinary catheter [facility] Start: 03-07-2025 Measuring intake and output [facility] Start: 03-07-2025 Notification of physician [facility] Start: 03-07-2025 Patient referral to dietitian [facility] Start: 03-07-2025 Providing care according to standard [facility] Start: 03-07-2025 Provision of activity privileges [facility] Start: 03-07-2025 Referral to occupational therapist [facility] Start: 03-07-2025 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 [facility] Start: 03-07-2025 Referral to service [facility] Start: 03-07-2025 Wound care [facility] Start: 03-07-2025 End: 03-07-2025 [facility] Start: 03-07-2025 Admission procedure [facility] Start: 03-07-2025 Hospital admission, emergency, from emergency room, medical nature [facility] Start: 03-07-2025 End: 03-07-2025 [facility] Start: 03-07-2025 Bacteria identified in Urine by Culture Urine Culture [facility] Start: 03-07-2025 [facility] Start: 02-26-2025 Anaerobic microbial culture Anaerobic Culture [facility] Start: 02-26-2025 Source specific culture [facility] Start: 02-16-2025 [facility] Start: 02-16-2025 Microbial culture, routine Wound Culture [facility] Start: 02-16-2025 Microscopic observation [Identifier] in Unspecified specimen by Gram stain [facility] Start: 02-16-2025 Wound Culture Wound Culture [facility] Start: 12-05-2024 End: 03-06-2025 25-hydroxyvitamin D3 [Mass/volume] in Serum or Plasma VITAMIN D 25 HYDROXY Lab Routine Vitamin D deficiency Expected: 12/05/2024, Expires: 03/06/2025 [facility] Comment on above: Expected: 12/05/2024, Expires: Start: 12-05-2024 Annual PCP Team Chronic Disease Visit Annual PCP Team Chronic Disease Visit [facility] Start: 12-05-2024 End: 03-06-2025 CBC panel - Blood by Automated count COMPLETE BLOOD COUNT Lab Routine Peripheral vascular occlusive disease (HCC) Expected: 12/05/2024, Expires: 03/06/2025 [facility] Comment on above: Expected: 12/05/2024, Expires: Start: 12-05-2024 End: 03-06-2025 Cobalamin (Vitamin B12) [Mass/volume] in Serum or Plasma VITAMIN B12 Lab Routine 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) Expected: 12/05/2024, Expires: 03/06/2025 [facility] Comment on above: Expected: 12/05/2024, Expires: Start: 12-05-2024 End: 03-06-2025 Comprehensive metabolic 2000 panel - Serum or Plasma COMPREHENSIVE METABOLIC PANEL Lab Routine 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) Expected: 12/05/2024, Expires: 03/06/2025 [facility] Comment on above: Expected: 12/05/2024, Expires: Start: 12-05-2024 End: 03-06-2025 Hemoglobin A1c in Blood HEMOGLOBIN A1C Lab Routine 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) Expected: 12/05/2024, Expires: 03/06/2025 [facility] Work Phone: Comment on above: Expected: 12/05/2024, Expires: Start: 12-05-2024 End: 03-06-2025 Lipid 1996 panel - Serum or Plasma LIPID PANEL BASIC Lab Routine Dyslipidemia (high LDL; low HDL) Expected: 12/05/2024, Expires: 03/06/2025 [facility] Comment on above: Expected: 12/05/2024, Expires: Start: 12-05-2024 End: 03-06-2025 Thyrotropin [Units/volume] in Serum or Plasma THYROID STIMULATING HORMONE Lab Routine Multiple thyroid nodules Expected: 12/05/2024, Expires: 03/06/2025 [facility] Comment on above: Expected: 12/05/2024, Expires: Start: 12-05-2024 End: 03-06-2025 Thyroxine (T4) free [Mass/volume] in Serum or Plasma T4 FREE/FREE THYROXINE Lab Routine Multiple thyroid nodules Expected: 12/05/2024, Expires: 03/06/2025 [facility] Comment on above: Expected: 12/05/2024, Expires: Start: 12-05-2024 End: 12-05-2024 Patient encounter procedure 12/05/2024 9:00 AM EST Office Visit [facility] [address] [place] [address] Rishi Vasquez DO [address] [facility] [address] 6 month follow up Family [facility] Comment on above: 6 month follow up Start: 11-30-2024 Complete blood count Hemoglobin/Hematocrit [facility] Start: 11-30-2024 Creatinine measurement Serum Creatinine [facility] Start: 11-30-2024 Hemoglobin A1c measurement HbA1C [facility] Start: 11-30-2024 Hepatitis B surface antibody level LDL Cholesterol [facility] Start: 11-19-2024 Medicare Advantage Annual Wellness Visit Medicare Advantage Annual Wellness Visit [facility] Start: 11-15-2024 Glaucoma screening Dilated Retinal Exam [facility] Start: 09-05-2024 End: 09-05-2024 Patient encounter procedure 09/05/2024 9:20 AM EDT Immunization [facility] [address] [address] [facility], Immunization Clinic Nurse [address] [place] [address] FLU SHOT [facility] Comment on above: FLU SHOT Start: 07-20-2024 Covid-19 Vaccine ( season) Covid-19 Vaccine ( season) [facility] Start: 07-20-2024 Covid-19 Vaccine ( season) Covid-19 Vaccine ( season) [facility] Start: 07-20-2024 Influenza vaccination Influenza Vaccine (#1) [facility] Start: 06-04-2024 3 comp foot exam completed DIABETIC FOOT EXAM [facility] Start: 06-04-2024 ANNUAL PCP TEAM CHRONIC DISEASE VISIT ANNUAL PCP TEAM CHRONIC DISEASE VISIT [facility] Start: 06-04-2024 BP CONTROLLED (<130/80) BP CONTROLLED (<130/80) [facility] Start: 06-04-2024 Diabetic foot examination Diabetic Foot Exam [facility] Start: 06-04-2024 End: 06-04-2024 Patient encounter procedure 06/04/2024 9:40 AM EDT Office Visit [facility] [address] [address] Rishi Vasquez, DO [address] [place] [address] 6 month follow up [facility] Comment on above: 6 month follow up Start: 06-03-2024 End: 06-03-2024 Patient encounter procedure 06/03/2024 9:30 AM EDT Appointment Mammogram [address] [place] [address] Encounter for screening mammogram for malignant neoplasm of breast [Z12.31] Mammogram Comment on above: Encounter for screening mammogram for ma lignant neoplasm of breast [Z12.31] Start: 05-30-2024 End: 08-29-2024 25-hydroxyvitamin D3 [Mass/volume] in Serum or Plasma VITAMIN D 25 HYDROXY Lab Routine Vitamin D deficiency Expected: 05/30/2024 (Approximate), Expires: 08/29/2024 [facility] Comment on above: Expected: 05/30/2024 (Approximate), Expi res: 08/29/2024 Start: 05-30-2024 End: 08-29-2024 CBC W Auto Differential panel - Blood COMPLETE BLOOD COUNT AND DIFFERENTIAL Lab Routine Essential hypertension Fatigue, unspecified type Expected: 05/30/2024 (Approximate), Expires: 08/29/2024 [facility] Comment on above: Expected: 05/30/2024 (Approximate), Expi res: 08/29/2024 Start: 05-30-2024 End: 08-29-2024 Comprehensive metabolic 2000 panel - Serum or Plasma COMPREHENSIVE METABOLIC PANEL Lab Routine Essential hypertension 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) CKD stage G3b/A1, GFR 30-44 and albumin creatinine ratio <30 mg/g (HCC) Dyslipidemia (high LDL; low HDL) Expected: 05/30/2024 (Approximate), Expires: 08/29/2024 [facility] Comment on above: Expected: 05/30/2024 (Approximate), Expi res: 08/29/2024 Start: 05-30-2024 End: 08-29-2024 Hemoglobin A1c in Blood HEMOGLOBIN A1C Lab Routine 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) Expected: 05/30/2024 (Approximate), Expires: 08/29/2024 [facility] Comment on above: Expected: 05/30/2024 (Approximate), Expi res: 08/29/2024 Start: 05-30-2024 Hemoglobin A1c measurement HbA1C [facility] Start: 05-30-2024 HEMOGLOBIN/HEMATOCRIT HEMOGLOBIN/HEMATOCRIT [facility] Start: 05-30-2024 Hepatitis B screening URINE ALBUMIN:CREATININE RATIO [facility] Start: 05-30-2024 Hepatitis B surface antibody level LDL CHOLESTEROL [facility] Start: 05-30-2024 End: 08-29-2024 Lipid 1996 panel - Serum or Plasma LIPID PANEL BASIC Lab Routine Essential hypertension 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) Dyslipidemia (high LDL; low HDL) Expected: 05/30/2024 (Approximate), Expires: 08/29/2024 [facility] Work Phone: Comment on above: Expected: 05/30/2024 (Approximate), Expi res: 08/29/2024 Start: 05-30-2024 SERUM CREATININE SERUM CREATININE [facility] Start: 05-30-2024 End: 08-29-2024 Thyrotropin [Units/volume] in Serum or Plasma THYROID STIMULATING HORMONE Lab Routine Multiple thyroid nodules Low TSH level Fatigue, unspecified type Expected: 05/30/2024 (Approximate), Expires: 08/29/2024 [facility] Comment on above: Expected: 05/30/2024 (Approximate), Expi res: 08/29/2024 Start: 05-30-2024 End: 08-29-2024 Thyroxine (T4) free [Mass/volume] in Serum or Plasma T4 FREE/FREE THYROXINE Lab Routine Multiple thyroid nodules Low TSH level Fatigue, unspecified type Expected: 05/30/2024 (Approximate), Expires: 08/29/2024 [facility] Comment on above: Expected: 05/30/2024 (Approximate), Expi res: 08/29/2024 Start: 05-30-2024 End: 08-29-2024 Triiodothyronine (T3) Free [Mass/volume] in Serum or Plasma T3, FREE Lab Routine Multiple thyroid nodules Low TSH level Fatigue, unspecified type Expected: 05/30/2024 (Approximate), Expires: 08/29/2024 [facility] Comment on above: Expected: 05/30/2024 (Approximate), Expi res: 08/29/2024 Start: 05-30-2024 End: 05-30-2024 ambulatory 05/30/2024 8:00 AM EDT Results Only [facility] [address] [place] [address] [facility] Start: 05-29-2024 Mammography [facility] Start: 05-29-2024 Screening for malignant neoplasm of breast Mammogram Screening [facility] Start: 04-16-2024 End: 04-16-2024 ambulatory 04/16/2024 4:45 PM EDT OT/PT/Speech Visit [facility] [address] [place] [address] GoliasAnselmo, PT [address] [place] [address] test [facility] Comment on above: test Start: 03-25-2024 End: 03-25-2024 ambulatory 03/25/2024 9:30 AM EDT OT/PT/Speech Visit [facility] [address] [place] [address] Keisha Guzman, RN HEMODIALYSIS CHARGE [address] [place] [address] M54.50,G89.29 (ICD-10-CM) - Chronic midline low back pain without sciatica [facility] Comment on above: M54.50,G89.29 (ICD-10-CM) - Chronic midl ine low back pain without sciatica Start: 03-20-2024 End: 03-20-2024 ambulatory 03/20/2024 10:00 AM EDT OT/PT/Speech Visit [facility] [address] [place] [address] Golias, Anselmo, PT [address] [place] [address] M54.50,G89.29 (ICD-10-CM) - Chronic midline low back pain without sciatica [facility] Comment on above: M54.50,G89.29 (ICD-10-CM) - Chronic midl ine low back pain without sciatica Start: 12-14-2023 HEMOGLOBIN/HEMATOCRIT HEMOGLOBIN/HEMATOCRIT [facility] Start: 12-14-2023 SERUM CREATININE SERUM CREATININE [facility] Start: 12-05-2023 ANNUAL PCP TEAM CHRONIC DISEASE VISIT ANNUAL PCP TEAM CHRONIC DISEASE VISIT [facility] Start: 12-05-2023 BP CONTROLLED (<130/80) BP CONTROLLED (<130/80) [facility] Start: 11-30-2023 Hemoglobin A1c/Hemoglobin.total in Blood HBA1C [facility] Start: 08-31-2023 HEMOGLOBIN/HEMATOCRIT HEMOGLOBIN/HEMATOCRIT [facility] Start: 08-31-2023 Hepatitis B surface antibody level LDL CHOLESTEROL [facility] Start: 08-31-2023 SERUM CREATININE SERUM CREATININE [facility] Start: 08-16-2023 Anaerobic Culture Anaerobic Culture [facility] Start: 07-20-2023 Covid-19 Vaccine ( season) Covid-19 Vaccine () [facility] Start: 07-20-2023 Influenza vaccination [facility] Start: 06-13-2023 Hemoglobin A1c/Hemoglobin.total in Blood HBA1C [facility] Start: 06-05-2023 Mammography MAMMOGRAM [facility] Start: 06-04-2023 End: 08-04-2023 Bacteria identified in Urine by Culture [facility] Work Phone: Comment on above: Expected: 06/04/2023, Expires: 3 Start: 05-31-2023 ANNUAL PCP TEAM CHRONIC DISEASE VISIT ANNUAL PCP TEAM CHRONIC DISEASE VISIT [facility] Start: 05-31-2023 BP CONTROLLED (<130/80) BP CONTROLLED (<130/80) [facility] Start: 05-16-2023 3 comp foot exam completed DIABETIC FOOT EXAM [facility] Start: 05-08-2023 Hepatitis C antibody, confirmatory test DILATED RETINAL EXAM [facility] Start: 04-24-2023 Urine microalbumin profile [facility] Start: 03-07-2023 SERUM CREATININE SERUM CREATININE [facility] Start: 03-01-2023 Hemoglobin A1c/Hemoglobin.total in Blood HBA1C [facility] Start: 02-27-2023 End: 04-29-2023 ALBUMIN/CREAT RATIO RND UR ALBUMIN/CREAT RATIO RND UR Lab Routine 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) Expected: 02/27/2023, Expires: 04/29/2023 [facility] Work Phone: Comment on above: Expected: 02/27/2023, Expires: 3 Start: 02-23-2023 HEMOGLOBIN/HEMATOCRIT HEMOGLOBIN/HEMATOCRIT [facility] Start: 02-23-2023 Hepatitis B surface antibody level LDL CHOLESTEROL [facility] Start: 12-05-2022 End: 02-04-2023 CBC W Auto Differential panel - Blood CBC + DIFF Lab Routine Dizziness Biceps rupture, proximal, left, initial encounter Expected: 12/05/2022, Expires: 02/04/2023 [facility] Work Phone: Comment on above: Expected: 12/05/2022, Expires: 3 Start: 12-05-2022 End: 02-04-2023 Comprehensive metabolic 2000 panel - Serum or Plasma COMP METABOLIC PANEL Lab Routine Dizziness Biceps rupture, proximal, left, initial encounter Expected: 12/05/2022, Expires: 02/04/2023 [facility] Work Phone: Comment on above: Expected: 12/05/2022, Expires: 3 Start: 12-05-2022 End: 02-04-2023 Creatine kinase [Enzymatic activity/volume] in Serum or Plasma CK CREATINE KINASE Lab Routine Dizziness Biceps rupture, proximal, left, initial encounter Expected: 12/05/2022, Expires: 02/04/2023 [facility] Work Phone: Comment on above: Expected: 12/05/2022, Expires: 3 Start: 12-05-2022 End: 02-04-2023 Hemoglobin A1c in Blood HGB A1C Lab Routine 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) Expected: 12/05/2022, Expires: 02/04/2023 [facility] Work Phone: Comment on above: Expected: 12/05/2022, Expires: 3 Start: 12-05-2022 End: 02-04-2023 Magnesium [Mass/volume] in Serum or Plasma MAGNESIUM BLD Lab Routine Dizziness Biceps rupture, proximal, left, initial encounter Expected: 12/05/2022, Expires: 02/04/2023 [facility] Work Phone: Comment on above: Expected: 12/05/2022, Expires: 3 Start: 12-05-2022 End: 02-04-2023 Thyrotropin [Units/volume] in Serum or Plasma TSH BLD Lab Routine Dizziness Expected: 12/05/2022, Expires: 02/04/2023 [facility] Work Phone: Comment on above: Expected: 12/05/2022, Expires: 3 Start: 12-05-2022 End: 02-04-2023 Thyroxine (T4) free [Mass/volume] in Serum or Plasma T4 FREE/FREE THYROX Lab Routine Dizziness Expected: 12/05/2022, Expires: 02/04/2023 [facility] Work Phone: Comment on above: Expected: 12/05/2022, Expires: 3 Start: 12-02-2022 ANNUAL PCP TEAM CHRONIC DISEASE VISIT ANNUAL PCP TEAM CHRONIC DISEASE VISIT [facility] Start: 12-01-2022 Hemoglobin A1c/Hemoglobin.total in Blood HBA1C [facility] Start: 11-28-2022 Hepatitis B screening URINE ALBUMIN:CREATININE RATIO [facility] Start: 10-07-2022 End: 12-07-2022 Thyrotropin [Units/volume] in Serum or Plasma TSH BLD Lab Routine Low TSH level Abnormal thyroid blood test Borderline abnormal thyroid function test Expected: 10/07/2022, Expires: 12/07/2022 [facility] Work Phone: Comment on above: Expected: 10/07/2022, Expires: 3 Start: 10-07-2022 End: 12-07-2022 Thyroxine (T4) free [Mass/volume] in Serum or Plasma T4 FREE/FREE THYROX Lab Routine Low TSH level Abnormal thyroid blood test Borderline abnormal thyroid function test Expected: 10/07/2022, Expires: 12/07/2022 [facility] Work Phone: Comment on above: Expected: 10/07/2022, Expires: 3 Start: 10-07-2022 End: 12-07-2022 Triiodothyronine (T3) Free [Mass/volume] in Serum or Plasma T3 FREE BLD Lab Routine Low TSH level Abnormal thyroid blood test Borderline abnormal thyroid function test Expected: 10/07/2022, Expires: 12/07/2022 [facility] Work Phone: Comment on above: Expected: 10/07/2022, Expires: 3 Start: 08-31-2022 End: 10-31-2022 25-hydroxyvitamin D3 [Mass/volume] in Serum or Plasma VITAMIN D 25 HYDROXY Lab Routine Vitamin D deficiency Expected: 08/31/2022, Expires: 10/31/2022 [facility] Work Phone: Comment on above: Expected: 08/31/2022, Expires: 2 Start: 08-31-2022 End: 10-31-2022 CBC panel - Blood by Automated count CBC Lab Routine 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) Stage 3 chronic kidney disease, unspecified whether stage 3a or 3b CKD (HCC) Essential hypertension Dyslipidemia (high LDL; low HDL) Expected: 08/31/2022, Expires: 10/31/2022 [facility] Work Phone: Comment on above: Expected: 08/31/2022, Expires: 2 Start: 08-31-2022 End: 10-31-2022 Cobalamin (Vitamin B12) [Mass/volume] in Serum or Plasma VITAMIN B12 BLOOD Lab Routine 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) Expected: 08/31/2022, Expires: 10/31/2022 [facility] Work Phone: Comment on above: Expected: 08/31/2022, Expires: 2 Start: 08-31-2022 End: 10-31-2022 Comprehensive metabolic 2000 panel - Serum or Plasma COMP METABOLIC PANEL Lab Routine 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) Expected: 08/31/2022, Expires: 10/31/2022 [facility] Work Phone: Comment on above: Expected: 08/31/2022, Expires: 2 Start: 08-31-2022 End: 10-31-2022 Hemoglobin A1c in Blood HGB A1C Lab Routine 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) Expected: 08/31/2022, Expires: 10/31/2022 [facility] Work Phone: Comment on above: Expected: 08/31/2022, Expires: 2 Start: 08-31-2022 End: 10-31-2022 Lipid 1996 panel - Serum or Plasma LIPID PANEL BASIC Lab Routine Dyslipidemia (high LDL; low HDL) Expected: 08/31/2022, Expires: 10/31/2022 [facility] Work Phone: Comment on above: Expected: 08/31/2022, Expires: 2 Start: 08-31-2022 End: 10-31-2022 Thyrotropin [Units/volume] in Serum or Plasma TSH BLD Lab Routine 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) Stage 3 chronic kidney disease, unspecified whether stage 3a or 3b CKD (HCC) Fatigue, unspecified type Expected: 08/31/2022, Expires: 10/31/2022 [facility] Work Phone: Comment on above: Expected: 08/31/2022, Expires: 2 Start: 08-25-2022 Hemoglobin A1c/Hemoglobin.total in Blood HBA1C [facility] Start: 07-20-2022 Influenza vaccination INFLUENZA (#1) [facility] Start: 07-14-2022 BP CONTROLLED (<130/80) BP CONTROLLED (<130/80) [facility] Start: 06-10-2022 Mammography MAMMOGRAM [facility] Start: 05-30-2022 3 comp foot exam completed DIABETIC FOOT EXAM [facility] Start: 04-26-2022 COVID-19 VACCINE (3 - Booster for Kellee series) COVID-19 VACCINE (3 - Booster for Kellee series) [facility] Start: 03-30-2022 Hepatitis C antibody, confirmatory test DILATED RETINAL EXAM [facility] Start: 02-21-2022 COVID-19 VACCINE (3 - Booster for Kellee series) COVID-19 VACCINE (3 - Booster for Kellee series) [facility] Start: 01-20-2022 Colonoscopy flx dx w/collj spec when pfrmd DIAGNOSTIC COLONOSCOPY [facility] Work Phone: Start: 11-19-2021 ADVANCE DIRECTIVE DISCUSSION ADVANCE DIRECTIVE DISCUSSION [facility] Start: 12-17-2017 End: 12-17-2017 Appointment Appointment [facility] Work Phone: Start: 08-30-2017 End: 08-30-2017 Appointment Appointment [facility] [employer] Work Phone: Start: 06-11-2017 End: 06-11-2017 ISAC CHAU [facility] [employer] Work Phone: Start: 06-11-2017 End: 06-11-2017 Follow Up Appt 6 months Follow Up Appt 6 months [facility] Work Phone: Start: 06-11-2017 End: 06-11-2017 Appointment Appointment [facility] Work Phone: Start: 06-11-2017 End: 06-11-2017 ISAC CHAU [facility] Work Phone: Start: 06-11-2017 End: 06-11-2017 Follow Up Appt 6 months Follow Up Appt 6 months [facility] Work Phone: Start: 06-04-2017 End: 06-04-2017 Appointment Appointment [facility] Work Phone: Start: 05-04-2017 End: 05-04-2017 Thyroid stimulating hormone (TSH) *TSH [facility] Work Phone: Start: 05-04-2017 End: 05-04-2017 Thyroxine (T4) free *T4 free [facility] [employer] Work Phone: Start: 05-04-2017 End: 05-04-2017 Triiodothyronine (T3) free *T3-Free [facility] Work Phone: Start: 05-04-2017 End: 05-04-2017 Thyroid stimulating hormone (TSH) *TSH [facility] Work Phone: Start: 05-04-2017 End: 05-04-2017 Thyroxine (T4) free *T4 free [facility] Work Phone: Start: 05-04-2017 End: 05-04-2017 Triiodothyronine (T3) free *T3-Free [facility] Work Phone: Start: 05-02-2017 End: 05-02-2017 *BMP *BMP [facility] Work Phone: Start: 05-02-2017 End: 05-02-2017 *CBC with Differential *CBC with Differential [facility] Work Phone: Start: 05-02-2017 End: 05-02-2017 Appointment Appointment [facility] Work Phone: Start: 05-02-2017 End: 05-02-2017 *BMP *BMP [facility] Work Phone: Start: 05-02-2017 End: 05-02-2017 *CBC with Differential *CBC with Differential [facility] Work Phone: Start: 04-23-2017 End: 04-23-2017 C reactive protein (hsCRP) *CRP - C-Reative Protein [facility] Work Phone: Start: 04-23-2017 End: 04-23-2017 Erythrocyte sedimentation rate *Sedimentation Rate (ESR) [facility] Work Phone: Start: 04-23-2017 End: 04-23-2017 C reactive protein (hsCRP) *CRP - C-Reative Protein [facility] Work Phone: Start: 04-23-2017 End: 04-23-2017 Erythrocyte sedimentation rate *Sedimentation Rate (ESR) [facility] Work Phone: Start: 02-19-2017 End: 02-21-2017 C reactive protein (hsCRP) *CRP - C-Reative Protein [facility] [employer] Work Phone: Start: 02-19-2017 End: 02-21-2017 Erythrocyte sedimentation rate *Sedimentation Rate (ESR) [facility] [employer] Work Phone: Start: 02-19-2017 End: 02-21-2017 C reactive protein (hsCRP) *CRP - C-Reative Protein [facility] Work Phone: Start: 02-19-2017 End: 02-21-2017 Erythrocyte sedimentation rate *Sedimentation Rate (ESR) [facility] Work Phone: Start: 02-06-2017 End: 02-07-2017 Thyroid stimulating hormone (TSH) *TSH [facility] [employer] Work Phone: Start: 02-06-2017 End: 02-08-2017 Thyroperoxidase antibody *TPO Thyroid Peroxidase Antibodies [facility] [employer] Work Phone: Start: 02-06-2017 End: 02-07-2017 Thyroxine (T4) free *T4 free [facility] [employer] Work Phone: Start: 02-06-2017 End: 02-07-2017 Triiodothyronine (T3) free *T3-Free [facility] Work Phone: Start: 02-06-2017 End: 02-07-2017 Thyroid stimulating hormone (TSH) *TSH [facility] Work Phone: Start: 02-06-2017 End: 02-08-2017 Thyroperoxidase antibody *TPO Thyroid Peroxidase Antibodies [facility] Work Phone: Start: 02-06-2017 End: 02-07-2017 Thyroxine (T4) free *T4 free [facility] Work Phone: Start: 02-06-2017 End: 02-07-2017 Triiodothyronine (T3) free *T3-Free [facility] Work Phone: Start: 01-24-2017 End: 01-24-2017 Bacterica wound culture *Culture and Sensitivity, wound [facility] [employer] Work Phone: Start: 01-24-2017 End: 01-24-2017 Bacterica wound culture *Culture and Sensitivity, wound [facility] Work Phone: Start: 01-08-2017 End: 01-15-2017 *BMP *BMP [facility] [employer] Work Phone: Start: 01-08-2017 End: 01-15-2017 *CBC with Differential *CBC with Differential [facility] [employer] Work Phone: Start: 01-08-2017 End: 01-15-2017 C reactive protein (hsCRP) *CRP - C-Reative Protein [facility] [employer] Work Phone: Start: 01-08-2017 End: 01-15-2017 Erythrocyte sedimentation rate *Sedimentation Rate (ESR) [facility] [employer] Work Phone: Start: 01-08-2017 End: 01-15-2017 Mri lower extrem oth/thn jt w/o contr matrl MRI Non Joint Lower Extremity w/o [facility] [employer] Work Phone: Start: 01-08-2017 End: 01-15-2017 *BMP *BMP [facility] Work Phone: Start: 01-08-2017 End: 01-15-2017 *CBC with Differential *CBC with Differential [facility] Work Phone: Start: 01-08-2017 End: 01-15-2017 C reactive protein (hsCRP) *CRP - C-Reative Protein [facility] Work Phone: Start: 01-08-2017 End: 01-15-2017 Erythrocyte sedimentation rate *Sedimentation Rate (ESR) [facility] Work Phone: Start: 01-08-2017 End: 01-15-2017 Mri lower extremity w/o dye MRI Non Joint Lower Extremity w/o [facility] Work Phone: Start: 01-04-2017 End: 01-04-2017 *CBC with Differential *CBC with Differential [facility] [employer] Work Phone: Start: 01-04-2017 End: 01-04-2017 Bacterica wound culture *Culture and Sensitivity, wound [facility] [employer] Work Phone: Start: 01-04-2017 End: 01-04-2017 C reactive protein (hsCRP) *CRP - C-Reative Protein [facility] Work Phone: Start: 01-04-2017 End: 01-04-2017 Erythrocyte sedimentation rate *Sedimentation Rate (ESR) [facility] Work Phone: Start: 01-04-2017 End: 01-04-2017 MRSA presence *MRSAD - M R Staph Aureus DNA by PCR [facility] Work Phone: Start: 01-04-2017 End: 01-04-2017 Radex foot complete minimum 3 views X-Ray, Foot [facility] Work Phone: Start: 01-04-2017 End: 01-04-2017 *CBC with Differential *CBC with Differential [facility] Work Phone: Start: 01-04-2017 End: 01-04-2017 Bacterica wound culture *Culture and Sensitivity, wound [facility] Work Phone: Start: 01-04-2017 End: 01-04-2017 C reactive protein (hsCRP) *CRP - C-Reative Protein [facility] Work Phone: Start: 01-04-2017 End: 01-04-2017 Erythrocyte sedimentation rate *Sedimentation Rate (ESR) [facility] Work Phone: Start: 01-04-2017 End: 01-04-2017 MRSA presence *MRSAD - M R Staph Aureus DNA by PCR [facility] Work Phone: Start: 01-04-2017 End: 01-04-2017 X-ray exam of foot X-Ray, Foot [facility] Work Phone: Start: 01-01-2017 End: 01-02-2017 *CBC with Differential *CBC with Differential [facility] [employer] Work Phone: Start: 01-01-2017 End: 01-02-2017 C reactive protein (hsCRP) *CRP - C-Reative Protein [facility] Work Phone: Start: 01-01-2017 End: 01-02-2017 Erythrocyte sedimentation rate *Sedimentation Rate (ESR) [facility] Work Phone: Start: 01-01-2017 End: 01-02-2017 *CBC with Differential *CBC with Differential [facility] Work Phone: Start: 01-01-2017 End: 01-02-2017 C reactive protein (hsCRP) *CRP - C-Reative Protein [facility] Work Phone: Start: 01-01-2017 End: 01-02-2017 Erythrocyte sedimentation rate *Sedimentation Rate (ESR) [facility] Work Phone: Start: 12-20-2016 End: 12-20-2016 Radex foot complete minimum 3 views X-Ray, Foot [facility] Work Phone: Start: 12-20-2016 End: 12-20-2016 X-ray exam of foot X-Ray, Foot [facility] Work Phone: Start: 12-18-2016 End: 12-20-2016 *CDIF - Clostridium Diff. Toxin Stool *CDIF - Clostridium Diff. Toxin Stool [facility] Work Phone: Start: 12-18-2016 End: 12-20-2016 *CDIF - Clostridium Diff. Toxin Stool *CDIF - Clostridium Diff. Toxin Stool [facility] Work Phone: Start: 12-13-2016 End: 12-15-2016 Radex foot complete minimum 3 views X-Ray, Foot [facility] Work Phone: Start: 12-13-2016 End: 12-15-2016 X-ray exam of foot X-Ray, Foot [facility] Work Phone: Start: 12-05-2016 End: 12-05-2016 DJN DJN [facility] Work Phone: Start: 12-05-2016 End: 12-05-2016 Follow Up Appt 6 months Follow Up Appt 6 months [facility] Work Phone: Start: 12-05-2016 End: 12-05-2016 DJN DJN [facility] Work Phone: Start: 12-05-2016 End: 12-05-2016 Follow Up Appt 6 months Follow Up Appt 6 months [facility] Work Phone: Start: 11-22-2016 End: 11-23-2016 *IGSUB IMMUN Subclas-IGG1,2,3 &4 *IGSUB IMMUN Subclas-IGG1,2,3 &4 [facility] [employer] Work Phone: Start: 11-22-2016 End: 11-29-2016 Debridement subcutaneous tissue 20 sq cm/< Debridement, subcutaneous tissue first 20 sq cm or less [facility] [employer] Work Phone: Start: 11-22-2016 End: 11-23-2016 *IGSUB IMMUN Subclas-IGG1,2,3 &4 *IGSUB IMMUN Subclas-IGG1,2,3 &4 [facility] Work Phone: Start: 11-22-2016 End: 11-29-2016 Dalila subq tissue 20 sq cm/< Debridement, subcutaneous tissue first 20 sq cm or less [facility] Work Phone: Start: 09-22-2016 End: 09-29-2016 Debridement subcutaneous tissue 20 sq cm/< Debridement, subcutaneous tissue first 20 sq cm or less [facility] [employer] Work Phone: Start: 09-22-2016 End: 09-29-2016 Dalila subq tissue 20 sq cm/< Debridement, subcutaneous tissue first 20 sq cm or less [facility] Work Phone: Start: 11-30-2015 End: 11-30-2015 DJN DJN [facility] [employer] Work Phone: Start: 11-30-2015 End: 11-30-2015 Follow Up Appt 1 year Follow Up Appt 1 year [facility] [employer] Work Phone: Start: 11-30-2015 End: 11-30-2015 DJN DJN [facility] Work Phone: Start: 11-30-2015 End: 11-30-2015 Follow Up Appt 1 year Follow Up Appt 1 year [facility] Work Phone: Start: 05-25-2015 End: 05-25-2015 ISAC CHAU [facility] [employer] Work Phone: Start: 05-25-2015 End: 05-25-2015 Ecg routine ecg w/least 12 lds w/i&r EKG (In office) [facility] [employer] Work Phone: Start: 05-25-2015 End: 05-25-2015 Follow Up Appt 6 months Follow Up Appt 6 months [facility] [employer] Work Phone: Start: 05-25-2015 End: 05-25-2015 ISAC CHAU [facility] Work Phone: Start: 05-25-2015 End: 05-25-2015 Electrocardiogram, complete EKG (In office) [facility] Work Phone: Start: 05-25-2015 End: 05-25-2015 Follow Up Appt 6 months Follow Up Appt 6 months [facility] Work Phone: Start: 01-04-2015 End: 01-04-2015 Vascular Surgery Vascular Surgery Kwaku Moscoso, [address] [place], [address], [address] [facility] [employer] Work Phone: Start: 01-04-2015 End: 01-04-2015 Vascular Surgery Vascular Surgery Kwaku Moscoso, [facility], [address] [place], [address] [facility] Work Phone: Start: 12-29-2014 End: 05-19-2015 *BMP *BMP [facility] [employer] Work Phone: Start: 12-29-2014 End: 12-29-2014 Ct angiography neck w/contrast/noncontrast CTA Neck [facility] [employer] Work Phone: Start: 12-29-2014 End: 12-29-2014 ISAC CHAU [facility] [employer] Work Phone: Start: 12-29-2014 End: 12-29-2014 Follow Up Appt 6 months Follow Up Appt 6 months [facility] [employer] Work Phone: Start: 12-29-2014 End: 05-19-2015 *BMP *BMP [facility] Work Phone: Start: 12-29-2014 End: 12-29-2014 Ct angiography, neck CTA Neck [facility] Work Phone: Start: 12-29-2014 End: 12-29-2014 ISAC CHAU [facility] Work Phone: Start: 12-29-2014 End: 12-29-2014 Follow Up Appt 6 months Follow Up Appt 6 months [facility] Work Phone: Start: 06-12-2014 End: 06-12-2014 24 hour holter monitor 24 hour holter monitor [facility] [employer] Work Phone: Start: 06-12-2014 End: 06-15-2014 Carotid duplex Carotid duplex [facility] [employer] Work Phone: Start: 06-12-2014 End: 06-12-2014 Follow Up Appt Other Follow Up Appt Other [facility] [employer] Work Phone: Start: 06-12-2014 End: 06-12-2014 24 hour holter monitor 24 hour holter monitor [facility] Work Phone: Start: 06-12-2014 End: 06-15-2014 Carotid duplex Carotid duplex [facility] Work Phone: Start: 06-12-2014 End: 06-12-2014 Follow Up Appt Other Follow Up Appt Other [facility] Work Phone: Start: 02-02-2014 End: 02-02-2014 Cardiac Rehab Cardiac Rehab [facility] [employer] Work Phone: Start: 02-02-2014 End: 02-02-2014 ISAC CHAU [facility] [employer] Work Phone: Start: 02-02-2014 End: 02-02-2014 Follow Up Appt 1 year Follow Up Appt 1 year [facility] [employer] Work Phone: Start: 02-02-2014 End: 02-02-2014 Cardiac Rehab Cardiac Rehab [facility] Work Phone: Start: 02-02-2014 End: 02-02-2014 ISAC CHAU [facility] Work Phone: Start: 02-02-2014 End: 02-02-2014 Follow Up Appt 1 year Follow Up Appt 1 year [facility] Work Phone: Start: 01-12-2014 End: 01-12-2014 *BMP *BMP [facility] [employer] Work Phone: Start: 01-12-2014 End: 01-12-2014 CBC W Auto Differential panel - Blood *CBC without Diff [facility] Work Phone: Start: 01-12-2014 End: 01-23-2014 Chest x-ray X-Ray, Chest, PA & Lateral [facility] Work Phone: Start: 01-12-2014 End: 01-12-2014 ISAC CHAU [facility] Work Phone: Start: 01-12-2014 End: 01-12-2014 Follow Up Appt 1 year Follow Up Appt 1 year [facility] Work Phone: Start: 01-12-2014 End: 01-12-2014 INR Coag RelTime (PPP) *PT/INR [facility] Work Phone: Start: 01-12-2014 End: 01-12-2014 Left Heart Cath Left Heart Cath [facility] [employer] Work Phone: Start: 01-12-2014 End: 01-12-2014 *BMP *BMP [facility] Work Phone: Start: 01-12-2014 End: 01-12-2014 CBC W Auto Differential panel - Blood *CBC without Diff [facility] Work Phone: Start: 01-12-2014 End: 01-23-2014 Chest x-ray X-Ray, Chest, PA & Lateral [facility] Work Phone: Start: 01-12-2014 End: 01-12-2014 Coagulation factor induced.INR assay in platelet poor plasma *PT/INR [facility] Work Phone: Start: 01-12-2014 End: 01-12-2014 DJN DJN [facility] Work Phone: Start: 01-12-2014 End: 01-12-2014 Follow Up Appt 1 year Follow Up Appt 1 year [facility] Work Phone: Start: 01-12-2014 End: 01-12-2014 Left Heart Cath Left Heart Cath [facility] Work Phone: Start: 2012 Hepatitis B Vaccine (1 of 3 - Risk 3-dose series) Hepatitis B Vaccine (1 of 3 - Risk 3-dose series) [facility] Start: 2012 RSV Vaccine (1 - 1-dose 60+ series) RSV Vaccine (1 - 1-dose 60+ series) [facility] Start: 2002 Influenza vaccination LUNG CANCER SCREENING [facility] Start: 2002 Screening for malignant neoplasm of lung Lung Cancer Screening [facility] Start: 2002 SHINGRIX VACCINE (1 of 2) SHINGRIX VACCINE (1 of 2) [facility] Start: 1997 COLOGUARD (FIT-DNA) COLOGUARD (FIT-DNA) [facility] Start: [address] COLONOGRAPHY [facility] Start: 1997 FECAL OCCULT BLOOD FECAL OCCULT BLOOD [facility] Start: 1997 Screening for malignant neoplasm of colon [facility] Start: 1997 SIGMOIDOSCOPY SIGMOIDOSCOPY [facility] Start: 1970 Anxiety Screening Anxiety Screening [facility] Bacteria identified in Unspecified specimen by Anaerobe culture [facility] Bacteria identified in Urine by Culture URINE CULTURE Microbiology Routine Acute cystitis with hematuria Ordered: 09/23/2022 [facility] Work Phone: Comment on above: Ordered: 09/23/2022 DBT Breast - bilater al screening ALEJANDRO SCREENING W BEN Radiology Routine Encounter for screening mammogram for malignant neoplasm of breast 06/03/2024 9:42 AM EDT [facility] Work Phone: End: 01-04-2026 DBT Breast - bilateral screening ALEJANDRO SCREENING W BEN Radiology Routine Encounter for screening mammogram for malignant neoplasm of breast 1 Occurrences starting 12/05/2024 until 01/04/2026 [facility] Work Phone: Comment on above: 1 Occurrences starting 12/05/2024 until 01/04/2026 End: 07-05-2023 Diagnostic mammography computer-aided detcj uni ALEJANDRO DIAGNOSTIC RT Radiology Routine Abnormal mammogram 1 Occurrences starting 06/05/2022 until 07/05/2023 [facility] Work Phone: Comment on above: 1 Occurrences starting 06/05/2022 until 07/05/2023 End: 06-27-2024 ALEJANDRO DIAGNOSTIC RIGHT ALEJANDRO DIAGNOSTIC RIGHT Radiology Routine Abnormal mammogram 1 Occurrences starting 05/29/2023 until 06/27/2024 [facility] Work Phone: Comment on above: 1 Occurrences starting 05/29/2023 until 06/27/2024 End: 03-06-2024 ALEJANDRO SCREENING ALEJANDRO SCREENING Radiology Routine Encounter for screening mammogram for malignant neoplasm of breast 1 Occurrences starting 02/07/2023 until 03/06/2024 [facility] Work Phone: Comment on above: 1 Occurrences starting 02/07/2023 until 03/06/2024 NM Heart Views W str ess and W radionuclide IV [facility] Patient Education [facility] Work Phone: Patient referral [facility] Work Phone: Urine culture [facility] End: 06-27-2024 US BREAST LTD RIGHT US BREAST LTD RIGHT Radiology Routine Abnormal mammogram 1 Occurrences starting 05/29/2023 until 06/27/2024 [facility] Work Phone: Comment on above: 1 Occurrences starting 05/29/2023 until 06/27/2024 End: 08-17-2023 Us breast uni real time with image limited US BREAST LTD RT Radiology Routine Abnormal mammogram 1 Occurrences starting 06/05/2022 until 07/05/2023 [facility] Work Phone: Comment on above: 1 Occurrences starting 06/05/2022 until 07/05/2023 US Carotid arteries [facility] Work Phone: US Carotid arteries [facility] Carotid arteries [facility] US Carotid arteries [facility] End: 12-05-2023 US CAROTID ARTERIES [facility] US CAROTID ARTERIES [facility] Vascular Lab Routine Carotid atherosclerosis, bilateral 1 Occurrences starting 12/05/2022 until 12/05/2023 [facility] Work Phone: Comment on above: 1 Occurrences starting 12/05/2022 until 12/05/2023 US Heart [facility] Us soft tissue head & neck real time imge docm US THYROID/PARATHYROID Radiology Routine Multiple thyroid nodules 12/20/2023 9:38 AM EST [facility] Work Phone: Wound microscopy, cu lture and sensitivities [facility] Immunizations Immunization Date Immunization Notes Care Provider Lisa marie 09-05-2024 influenza, high dose seasonal, preservative-free Immunization [facility] Work Phone: [facility] 08-31-2023 influenza (HD-IIV4) vaccine, age 65+ yr, high dose, quadrivalent, PF (FLUZONE HIGH-DOSE) Immunization [facility] Work Phone: [facility] Work Phone: 08-31-2023 influenza virus vaccine, unspecified formulation Rishi Vasquez DO Work Phone: [facility] 06-04-2023 pneumococcal (PCV20) vaccine, 20 valent (PREVNAR 20) Rishi Vasquez DO Work Phone: [facility] Work Phone: 06-04-2023 pneumococcal Conjuga te, unspecified formulation Rishi Vasquez DO Work Phone: [facility] Work Phone: 09-09-2022 influenza, high-dose , quadrivalent vaccine (FLUZONE HIGH DOSE QUADRIVALENT) Immunization [facility] Work Phone: [facility] 09-09-2022 influenza virus vaccine, unspecified formulation Rishi Vasquez DO Work Phone: [facility] 09-10-2021 influenza, high-dose , quadrivalent vaccine (FLUZONE HIGH DOSE QUADRIVALENT) Dillon Violeta 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.FLAKE CUTTER OPERATOR Work Phone: [facility] Work Phone: 09-10-2020 influenza, high-dose , quadrivalent vaccine (FLUZONE HIGH DOSE QUADRIVALENT) Dillon Violeta 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.FLAKE CUTTER OPERATOR Work Phone: [facility] Work Phone: 09-02-2019 influenza, high dose seasonal, preservative-free Dillon Violeta 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.FLAKE CUTTER OPERATOR Work Phone: [facility] Work Phone: 08-28-2018 influenza, high dose seasonal, preservative-free Dillon Violeta 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.FLAKE CUTTER OPERATOR Work Phone: [facility] Work Phone: 08-28-2018 pneumococcal polysaccharide vaccine, 23 valent Dillon Violeta 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.FLAKE CUTTER OPERATOR Work Phone: [facility] Work Phone: 09-07-2017 influenza, high dose seasonal, preservative-free Dillon Violeta 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.FLAKE CUTTER OPERATOR Work Phone: [facility] Work Phone: 09-01-2016 influenza, injectabl e, quadrivalent, preservative free Dr. Rishi Vasquez Work Phone: [facility] 09-01-2016 influenza, seasonal, injectable Dr. Rishi Vasquez Work Phone: [facility] 09-11-2014 influenza, seasonal, injectable Dillon Violeta 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.FLAKE CUTTER OPERATOR Work Phone: [facility] Work Phone: 04-24-2013 tetanus toxoid, redu woody diphtheria toxoid, and acellular pertussis vaccine, adsorbed Dillon Violeta 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.FLAKE CUTTER OPERATOR Work Phone: [facility] Work Phone: 01-03-2013 pneumococcal conjuga te vaccine, 13 valent Dillon Violeta 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.[facility] Work Phone: [facility] Work Phone: 12-20-2012 pneumococcal polysaccharide vaccine, 23 valent Dillon Violeta 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.[facility] Work Phone: [facility] Work Phone: Payers Date Payer Category Payer Self-pay [id number] 2022 [place] [address] [place] [phone] 2022 Medicare [id number] 2020 Unknown MMO MMO MEDICARE SUPPLEMENT [id number] 2020-Present [phone] [address] [place] [address] Indemnity [id number] 2020 Unknown [id number] 2017 Medicare MEDICARE MEDICAR E A AND B [id number] 2017-Present [phone] [address] [address] [place] [address] Medicare [id number] 2017 Medicare [id number] 2017 Private Health Insurance [facility] [id number] Medicare [id number] Unknown [id number] Unknown [id number] 2.840.1.950899.3.579.2. 462 Unknown [id number] 20.1.077795.3.579.2. 462 Unknown [id number] .840.1.894341.3.579.2. 462 Unknown [id number] .840.1.965677.3.579.2. 462 Unknown [id number] 2.840.1.732622.3.579.2. 462 Unknown [id number] 2.840.1.505667.3.579.2. 462 Unknown [id number] 2.840.1.538140.3.579.2. 462 Unknown [id number] 2.16.840.1.466818.3.579.2. 462 Unknown [id number] 2.16.840.1.610160.3.579.2. 462 Unknown [id number] 2.16.840.1.369546.3.579.2. 462 Unknown [id number] 2.16.840.1.441956.3.579.2. 462 Unknown [id number] 2.16840.1.277630.3.579.2. 462 Unknown [id number] 2.16840.1.289338.3.579.2. 462 Unknown [id number] 2.16840.1.250039.3.579.2. 462 Unknown [id number] 2.16840.1.509500.3.579.2. 462 Unknown [id number] 2.16840.1.514790.3.579.2. 462 Unknown [id number] 2.840.1.494956.3.579.2. 462 Unknown [id number] 2.16840.1.594522.3.579.2. 462 Unknown [id number] 2.16840.1.167644.3.579.2. 462 Unknown [id number] 2.16840.1.536597.3.579.2. 462 Unknown [id number] 2.16840.1.521079.3.579.2. 462 Unknown [id number] 2.16840.1.153970.3.579.2. 462 Unknown [id number] 2.16840.1.139958.3.579.2. 462 Unknown [id number] 2.16.840.1.500476.3.579.2. 462 Unknown [id number] 2.16.840.1.037241.3.579.2. 462 Unknown [id number] 2.16840.1.369292.3.579.2. 462 Unknown [id number] 2.16.840.1.075178.3.579.2. 462 Unknown [id number] 2.16.840.1.171779.3.579.2. 462 Unknown [id number] 2.16.840.1.966159.3.579.2. 462 Unknown [id number] 2.16.840.1.798716.3.579.2. 462 Unknown [id number] 2.16.840.1.897288.3.579.2. 462 Unknown [id number] 2.16.840.1.621747.3.579.2. 462 Unknown [id number] 2.16.840.1.191279.3.579.2. 462 Unknown [id number] 2.16.840.1.351938.3.579.2. 462 Unknown [id number] 2.840.1.614664.3.579.2. 462 Unknown [id number] 2.16.840.1.264404.3.579.2. 462 Unknown [id number] 2.16.840.1.332889.3.579.2. 462 Unknown [id number] 2.16.840.1.241114.3.579.2. 462 Unknown [id number] 2.16.840.1.572528.3.579.2. 462 Unknown [id number] 2.16.840.1.048062.3.579.2. 462 Unknown [id number] 2.16.840.1.035477.3.579.2. 462 Unknown [id number] 2.16.840.1.491920.3.579.2. 462 Unknown [id number] 2.16.840.1.128047.3.579.2. 462 Unknown [id number] 2.16.840.1.119359.3.579.2. 462 Unknown [id number] 2.16.840.1.667886.3.579.2. 462 Social History Date Type Detail Facility [facility] Work Phone: Start: 02-07-2022 End: 02-12-2024 Tobacco smoking status VAIS Unknown if ever smoked [facility] Start: 03-19-2021 None [facility] Start: 03-19-2021 Alone [facility] Start: 03-19-2021 Cigarettes [facility] Start: 1950 Sex Assigned At Female [facility] Start: 01-13-2013 End: 05-08-2025 Tobacco smoking status NHIS Ex-smoker [facility] Start: 12-20-1967 End: 12-20-2012 History of tobacco use Current smoker [facility] Start: 12-20-1967 End: 12-20-2012 History of tobacco use Cigarette Smoker [facility] Start: 01-13-2013 End: 09-05-2024 Cigarettes smoked current (pack per day) - Reported 0.5 [facility] Start: 01-13-2013 End: 03-27-2025 Tobacco use and exposure Smokeless tobacco non-user [facility] Start: 12-02-2021 End: 03-27-2025 Alcohol intake Current non-drinker of alcohol (finding) [facility] Start: 12-01-2021 End: 12-02-2022 History SDOH Alcohol Frequency 1 [facility] Start: 12-01-2021 History SDOH Alcohol Std Drinks 98 [facility] Start: 12-01-2021 End: 12-02-2022 History SDOH Social Connections Phone 5 [facility] [facility] Start: 12-01-2021 End: 12-02-2022 History SDOH Social Connections Scientology 2 [facility] Start: 12-01-2021 End: 12-02-2022 History SDOH Social Connections Living 4 [facility] Start: 12-01-2021 End: 12-02-2022 History SDOH Physical Activity MPS 6 [facility] Start: 11-26-2019 Education 12 [facility] Start: 02-25-2022 End: 08-15-2022 Exposure to SARS-CoV-2 (event) Not sure [facility] Work Phone: Start: 12-02-2022 History SDOH Alcohol Std Drinks 0 [facility] Start: 12-01-2022 End: 09-05-2024 Social connection and isolation panel [facility] Do you belong to any clubs or organizations such as latter-day groups, unions, fraternal or athletic groups, or school groups? No [facility] Are you now , , , , never or living with a partner? [facility] How often to you hav e a drink containing alcohol? Never [facility] How many standard dr inks containing alcohol do you have on a typical day? Patient does not drink [facility] Do you feel stress - tense, restless, nervous, or anxious, or unable to sleep at night because your mind is troubled all the time - these days [OSQ] Only a little [facility] (I/We) worried niurka er (my/our) food would run out before (I/we) got money to buy more. Never true [facility] Start: 08-26-2019 Gender identity Identifies as female gender (finding) [facility] Start: 08-16-2024 Sexual orientation Heterosexual (finding) [facility] Do you feel stress - tense, restless, nervous, or anxious, or unable to sleep at night because your mind is troubled all the time - these days [OSQ] Not at all [facility] Start: 02-17-2025 End: 03-07-2025 Sex Female (finding) [facility] Medical Equipment Procedure Code Equipment Code Equipment Original Text Equipment Identifier Dates [id number], [id number] Start: 02-15-2022 End: 06-04-2024 Comment on above: Test blood sugar(s) one times daily. Dx: Other DM Code E11.51 Insulin: No Use as instructed Goals Date Patient Goal Desired Activity /State Functional Status Date Assessment Result Facility 03-20-2025 Functional status Up ad praveen;Chair [facility] Work Phone: 03-19-[address] [facility] Work Phone: 03-11-2025 Functional status Chair Malachi [facility] Work Phone: 03-11-2025 Functional status With Assist of 1 Ivis velasco [facility] Work Phone: 03-11-2025 Functional status Marnie [facility] Work Phone: 03-10-2025 Functional status Shirlene [facility] Work Phone: 06-09-2015 Are you deaf, or do you have serious difficulty hearing No 06/09/2015 3:01 PM EDT Meka Baca RN No [facility] 06-09-2015 Are you blind, or do you have serious difficulty seeing, even when wearing glasses No 06/09/2015 3:01 PM EDT Meka Baca RN No [facility] 06-09-2015 Do you have serious difficulty walking or climbing stairs No 06/09/2015 3:01 PM EDT Meka Baca RN No [facility] 06-09-2015 Do you have difficul ty dressing or bathing No 06/09/2015 3:01 PM EDT Meka Baca RN No [facility] 06-09-2015 Because of a physica l, mental, or emotional condition, do you have difficulty doing errands alone such as visiting a physician's office or shopping No 06/09/2015 3:01 PM EDT Meka Baca RN No [facility] Mental Status Date Assessment Result Facility 03-20-2025 [facility] function [facility] Work Phone: 03-11-2025 Cognitive function Voice/Name [facility] Work Phone: 01-20-2022 Cognitive function Voice/Name [facility] Work Phone: 06-09-2015 Because of a physica l, mental, or emotional condition, do you have serious difficulty concentrating, remembering, or making decisions No 06/09/2015 3:01 PM EDT Meka Baca RN No [facility] Clinical Notes 11-14-2017 to 05-07-2025 Telephone Encounter - Lebron Jacome, GORGE - 05/07/2025 1:07 PM EDTTelephone Encounter - [...] since her insurance does not cover it. [facility] 05-07-2025 Miscellaneous Notes Pt phoned back and [...] this plan. Prior Authorization not available. Payer: [employer] [phone] Note from payer: This drug/product is not covered under the pharmacy benefit. Prior Authorization is not available. Electronic PA requested. Pt called in and reports she went in to [facility] and they told her that her [...] Insurance Company Name: [employer] Medicare [employer]vantage [employer] Phone number:[phone] Patient ID number: [id number] Pharmacy Name: [facility] Telephone number: [phone] documented in this encounter [facility] 05-07-2025 Telephone encounter Note Called and left a detailed voicemail notifying patient of providers message. Clinic phone number was left for the patient to call back if she would like the provider to change her medication. Sara Solis RN [facility] 05-06-2025 Telephone encounter Note Agree with below Rishi Vasquez DO [facility] 05-06-2025 Telephone encounter Note Called pt and message left she can either ask the pharmacy to run the rx with a discount card or call back and ask the provider to change the medicine. [facility] 05-06-2025 Telephone encounter Note Images from the original note were not included. This is the PA response. Close reason: Product not covered by this plan. Prior Authorization not available. Payer: [employer] [phone] Note from payer: This drug/product is not covered under the pharmacy benefit. Prior Authorization is not available. [facility] 05-06-2025 Telephone encounter Note Electronic PA requested. [facility] 05-06-2025 Telephone encounter Note Pt called in and reports she went in to [facility] and they told her that her insurance doesn't cover the Glipizide 5 mg tablets without a PA. Pt states she got them before and her insurance covered them. Pt states she paid out of pocket for 5 days worth of pills. Prior Authorization Documentation Prior authorization requested for the following medication: Medication: Glipizide Provider: Sushma Escobedo Insurance Company Name: [employer] Medicare Advantage Insurance [employer] Phone number:[phone] Patient ID number: [id number] Pharmacy Name: [facility] Telephone number: [phone] [facility] 04-30-2025 Instructions Fouzia Escobedo APRN.CNP - 04/30/2025 11:41 AM EDT Send me a blood sugar log in 2 weeks after taking the 10mg of glucotrol xl (5mg twice per day) Follow up as already scheduled with Dr Vasquez documented in this encounter [facility] 04-30-2025 Note HNO ID: [id number] Author: FOUZIA ESCOBEDO APRN.CNP Service: ? Author [...] wound dressing changes - Recent visit to distribution a class lineman Dr. Irene, who discussed potential surgery for [...] mellitus (HCC) Coronary artery disease Dr. Ch Asphalt Patcher, 90% blockage- unable to do stenting Diabetes mellitus type 2 in obese Diabetic feet (HCC) Gangrene (HCC) 2012 RIGHT FOOT Hypertension Mild non proliferative diabetic retinopathy (HCC) 06/11/2013 Both eyes, [facility]. Ortiz [facility]-03/25/2020 left mild, right moderate Multiple thyroid nodules last US 01/2015 Peripheral artery disease due to Diabetes mellitus, Dr. Kwaku Moscoso Rotator cuff syndrome of left shoulder Dr. Regi Montes [facility] PAST SURGICAL HISTORY Procedure Laterality Date AMPUTATION [...] ROTATOR CUFF REPAIR 03/11/14 Dr. Regi Thompson [facility]V CATHJ EA 1ST ORD ABDL PEL/LXTR [...] Take 1 tablet by mouth once daily. Pziborgc-Xnad-Iwi-Folic Acid 18-0.4 mg tab Take 1 tablet by mouth once daily. omega-3 fatty acids 1,000 mg cap Take 1 capsule by mouth once d (more content not included)... [facility] 04-30-2025 History of Presen t illness Narrative [...] wound dressing changes - Recent visit to distribution a class lineman Dr. Irene, who discussed potential surgery for [...] mellitus (HCC) Coronary artery disease Dr. Ch Asphalt Patcher, 90% blockage- unable to do stenting Diabetes mellitus type 2 in obese Diabetic feet (HCC) Gangrene (HCC) 2012 RIGHT FOOT Hypertension Mild non proliferative diabetic retinopathy (HCC) 06/11/2013 Both eyes, [facility]-03/25/2020 left mild, right moderate Multiple thyroid nodules last US 01/2015 Peripheral artery disease due to Diabetes mellitus, Dr. Kwaku Moscoso Rotator cuff syndrome of left shoulder Dr. Regi Montes [facility] PAST SURGICAL HISTORY Procedure Laterality Date AMPUTATION [...] VSL 04-08-13 ROTATOR CUFF REPA[facility]LXTR [facility] 7-20-16 APLL ALLERGIES Sulfa (Sulfonamide Antibiotics) MEDICATIONS Current [...] Take 1 tablet by mouth once daily. Wfxmmekd-Qapu-Mqw-Folic Acid 18-0.4 mg tab Take 1 tablet [...] as needed for worsening/no improvement. Fouzia Escobedo APRN.FLAKE CUTTER OPERATOR Recording using Judicata software for draft documentation of the visit was discussed with the patient/authorized printing supplies sales representative; all questions welcomed and answered. Patient/authorized printing supplies sales representative agreed to proceed documented in this encounter [facility] 04-27-2025 Radiology Diagnostic study note [facility] Imaging Services [address] [place], [place] [address] Thyroid MR#: [id number] Acct: [id number] Name: GELY NEWMAN Rep #: [id number] : 1950 F 75 From: Courtney Bright MD PCP: Dr. Rishi Vasquez, DO Status: RE G CLI Study:Thyroid Date of Exam: 04/27/25 Exam# [id number] Ordering Dr: Alla Renee MD PROCEDURE: THYROID, [...] of the ACR TI-RADS Committee, 2017 ([email or web address].elsevier.co m/[email or web address]) Reading Location: [id number] CC: Dr. Rishi Vasquez, ; Dr. Ciaran Renee MD ~ Parcel Post Order Clerk: Signed [facility] 04-16-2025 Telephone encounter Note Jessika calling from [facility] to report plan of care for patient and snf will continue visit patient 1 time a week for 5 weeks. detention will work with patient on wound care to bilateral lower extremities. Patient is being follow by Dr. Irene for wound care. No call back needed. Hina Lomeli RN [facility] 04-16-2025 Miscellaneous Notes Jessika calling from [facility] to report plan of care for patient and snf will continue visit patient 1 time a week for 5 weeks. detention will work with patient on wound care to bilateral lower extremities. Patient is being follow by Dr. Irene for wound care. No call back needed. Hina Lomeli RN documented in this encounter [facility] 04-07-2025 Telephone encounter Note Patient calls for [...] vomiting Protocols used: Diabetes - High Blood [id number] T [facility] 04-07-2025 Miscellaneous Notes Patient calls for elevated [...] vomiting Protocols used: Diabetes - High Blood Wmuti-WLJWG-KN documented in this encounter [facility] 03-27-2025 Instructions Podlogar, TAY Calderon.FLAKE CUTTER OPERATOR - 03/27/2025 10:36 AM EDT WHAT YOU [...] review all the medicines you take, even wodk-tiu-wcswzid medicines. As you get older, the way [...] certain medical conditions. documented in this encounter [facility] 03-27-2025 History of Presen t illness Narrative 03/26/2025 Patient presents with: ER F/U: [facility] ED -03/20/25 Multiple falls, gangrene SADIE feet SUBJECTIVE: This is a 75 year old that is here today for Above Complaints. HOSPITAL/ER FOLLOW UP: Reason for visit: Recurrent falls, Which facility: [facility] transferred to [facility] Date of visit: 03/07/2025-03/11/2025 [facility] then to U 03/11/2025-03/19/2025 Diagnosis: UTI, Rhabdomyolysis, [...] mellitus (HCC) Coronary artery disease Dr. Ch Asphalt Patcher, 90% blockage- unable to do stenting Diabetes mellitus type 2 in obese Diabetic feet (HCC) Gangrene (HCC) 2012 RIGHT FOOT Hypertension Mild non proliferative diabetic retinopathy (HCC) 06/11/2013 Both eyes, [facility]-03/25/2020 left mild, right moderate Multiple thyroid nodules last US 01/2015 Peripheral artery disease (HCC) due to Diabetes mellitus, Dr. Kwaku Moscoso Rotator cuff syndrome of left shoulder Dr. Deluna [facility] ALLERGIES Sulfa (Sulfonamide Antibiotics) MEDICATIONS Current Outpatient [...] Take 1 tablet by mouth once daily. Jzvfqnge-Edzy-Aig-Folic Acid 18-0.4 mg tab Take 1 tablet [...] WALKER FOLDING WHEELED W/O S Yumiko Whitehead APRN.MARK Prescription instructions reviewed with patient as applicable. [...] which included preparing to see the patient, kjsd-gt-cfpb patient care, completing clinical documentation, obtaining and/or reviewing separately obtained history, performing a medically appropriate examination, counseling and educating the patient/family/caregiver, and ordering medications, tests, or procedures. documented in this encounter [facility] 03-27-2025 Note HNO ID: [id number] Author: YUMIKO WHITEHEAD APRN.CNP Service: ? Author Type: Nurse Practitioner Type: Progress Notes Filed: 03/27/2025 11:01 Note Text: 03/26/2025 Patient presents with: ER F/U: [facility] ED -03/20/25 Multiple falls, gangrene SADIE feet SUBJECTIVE: This is a 75 year old that is here today for Above Complaints. HOSPITAL/ER FOLLOW UP: Reason for visit: Recurrent falls, Which facility: [facility] transferred to [facility] Date of visit: 03/07/2025-03/11/2025 [facility] then to TCU 03/11/2025-03/19/2025 Diagnosis: UTI, Rhabdomyolysis, [...] mellitus (HCC) Coronary artery disease Dr. Ch Asphalt Patcher, 90% blockage- unable to do stenting Diabetes mellitus type 2 in obese Diabetic feet (HCC) Gangrene (HCC) 2012 RIGHT FOOT Hypertension Mild non proliferative diabetic retinopathy ([facility]) 06/11/2013 Both eyes, [facility]-03/25/2020 left mild, right moderate Multiple thyroid nodules last 01/2015 Peripheral artery disease (HCC) due to Diabetes mellitus, Dr. Kwaku Moscoso Rotator cuff syndrome of left shoulder Dr. Deluna [facility] clinic ALLERGIES Sulfa (Sulfonamide Antibiotics) MEDICATIONS Current Outpatient [...] Take 1 tablet by mouth once daily. Nbfnamyv-Sihz-Yse-Folic Acid 18-0.4 mg tab Take 1 tablet [...] Colorectal Cancer Screen (more content not included)... [facility] 03-26-2025 Telephone encounter Note Agree. BP will be reassessed at appointment tomorrow. Let us know if not addressed at appointment tomorrow. Thank you, Clary Andres APRN.FLAKE CUTTER OPERATOR [facility] Work Phone: 03-26-2025 Miscellaneous Notes Agree. BP will be reassessed at appointment tomorrow. Let us know if not addressed at appointment tomorrow. Thank you, Clary Andres APRN.FLAKE CUTTER OPERATOR Wendi WERNER - [facility] HH- reporting updated POC: plans to see [...] is going to talk to provider at appt tomorrow about getting a front wheeled walker. No call back needed if pcp agrees. documented in this encounter [facility] 03-26-2025 Telephone encounter Note Ghislaine- OT - [facility] HH- reporting updated POC: plans to see [...] No call back needed if pcp agrees. [facility] 03-24-2025 Telephone encounter Note Noted Rishi Vasquez DO [facility] 03-24-2025 Miscellaneous Notes Noted Rishi Vasquez DO Ishaan PT calling from [facility] to report plan of care for patient and PT will visit patient 2 times a week for two weeks. PT will work with patient on functional mobility. No call back needed. Clemencia Chapman RN documented in this encounter [facility] 03-24-2025 Telephone encounter Note Ishaan PT calling from [facility] to report plan of care for patient and PT will visit patient 2 times a week for two weeks. PT will work with patient on functional mobility. No call back needed. Clemencia Chapman RN [facility] 03-24-2025 Telephone encounter Note Noted Jesenia Mcgee PA-C [facility] Work Phone: 03-24-2025 Miscellaneous Notes Noted Jesenia Mcgee PA-C Tatum with [facility] Nursing calls to report she saw pt today for start of care. Nursing will see pt once a week x 2 weeks then twice a week x 1 week, then once a week x 1. Nursing will be doing wound care and teaching wound prevention and education. Melly Pinon LPN documented in this encounter [facility] 03-23-2025 Telephone encounter Note Tatum with [facility] Nursing calls to report she saw pt today for start of care. Nursing will see pt once a week x 2 weeks then twice a week x 1 week, then once a week x 1. Nursing will be doing wound care and teaching wound prevention and education. Melly Pinon LPN [facility] 03-23-2025 Telephone encounter Note Call placed to Yvonne and notified of below. Clemencia Chapman RN [facility] 03-23-2025 Miscellaneous Notes Call placed to Yvonne and notified of below. Clemencia Chapman RN Yes Rishi Vasquez DO Yvonne with [facility] calls to ask if provider would be willing to follow their discharge orders for SN, PT, OT. Patient discharged home today from [facility] after having hospitalization and rehab for falls and UTI. Call back number is [phone]. Clemencia Chapman RN documented in this encounter [facility] 03-20-2025 Telephone encounter Note Yes Rishi Vasquez DO [facility] 03-20-2025 Telephone encounter Note Yvonne with [facility] calls to ask if provider would be willing to follow their discharge orders for SN, PT, OT. Patient discharged home today from [facility] after having hospitalization and rehab for falls and UTI. Call back number is [phone]. Clemencia Chapman RN [facility] 03-17-2025 Note [facility] 03-17-2025 Note [facility] 03-11-2025 Note [facility] 03-11-2025 Note [facility] 03-08-2025 Note [facility] 03-07-2025 Evaluation note Diagnosis Onset Date Resolution Acute UTI acute March 07 4:25pm SHAYY (acute kidney injury) acute March 07, 2025 4:25pm Anemia acute March 07 4:25pm Contusion of left hip acute Feb 4:25pm GI bleed acute March 07 4:25pm [...] chronic March 07, 2025 4:25pm Atherosclerosis of [place] artery of both lower extremities with gangrene [...] chronic March 11, 2025 5:26pm Atherosclerosis of [place] artery of both lower extremities with gangrene inactive March 11, 2025 5:26pm Chronic painful diabetic polyneuropathy inactive March 11, 2025 5:26pm Other specified peripheral vascular diseases inactive March 11, 2025 5:26pm 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 acute April 03, [address]25 10:[address] [facility] Work Phone: 1(767) 101-866304-19-2025 Evaluation note* Diagnosis Onset Date Resolution Status [...] chronic March 07, 2025 4:25pm Atherosclerosis of [place] ar riaz of both lower extremities with [...] chronic March 11, 2025 5:26pm Atherosclerosis of [place] ar riaz of both lower extremities with [...] polyneuropathy chronic April 03, 2025 1 0:32am [facility] Work Phone: 1(315) 835-530904-19-2025 Evaluation note* Diagnosis Onset Date Resolution Status Admit Date Acute UTI acute March 07 4:25pm SAHYY (acute kidney injury) acute March 07, 2025 4:25pm Anemia acute March 07 4:25pm Contusion of left hip acute Feb 4:25pm GI bleed acute March 07 4:25pm Recurrent falls acute February 4:25pm Rhabdomyolysis acute February 4:25pm Unstageable pressure injury of left lower leg acute March 07, 2025 4:25pm Unstageable pressure injury of right lower leg acute March 07, 2025 4:25pm Chronic kidney disease chronic Ap 2024 4:25pm Chronic wound of extremity chronic March 07, 2025 4:25pm Osteomyelitis of left foot chronic March 07, 2025 4:25pm Atherosclerosis of [place] ar riaz of both lower extremities with [...] 2025 5:26pm Iron deficiency anemia acute Ap 2024 5:26pm Multiple falls acute February 5:26pm [...] chronic March 11, 2025 5:26pm Atherosclerosis of [place] ar riaz of both lower extremities with [...] 2025 9:17am Atherosclerosis of coronary artery of [place] heart without angina pectoris chronic May 07, 2025 9:17am Essential hypertension chronic Ju 2024 9:17am Hyperlipidemia chronic May 07, 2025 9:17am [facility] Work Phone: 1(265) 793-735004-19-2025 Radiology Diagnostic study note [facility] Imaging Services [address] [address] [id number] HIP, UNI W/ Pelvis 2-3 Views MR#: [id number] Acct: [id number] Name: GELY NEWMAN Rep #: [id number] : 1950 F 75 From: Renetta Daivs MD PCP: Dr. Rishi Vasquez, DO Status: RE G ER Study:HIP, UNI W/ Pelvis 2-3 Views Date of Ex am: 03/07/25 Exam# [id number] Ordering Dr: Megan Vega PROCEDURE: HIP, UNI [...] obvious acute fracture given limitations. Reading Location: PSYCHIATRIC CC: Dr. Rishi Vasquez DO; LILLIAM Joshua ~ Parcel [employer] Order Clerk: Signed [facility]04-19-2025 Radiology Diagnostic study note [facility] Imaging Services [address] [place] [id number] Chest 1 View (Portable) MR#: [id number] Acct: [id number] Name: GELY NEWMAN Rep #: [id number] : 1950 F 75 From: Renetta Davis MD PCP: Dr. Rishi Vasquez DO Status: RE G ER Study:Chest 1 View (Portable) Date of Exam: 03/07/25 Exam# [id number] Ordering Dr: Megan Vega PROCEDURE: CHEST 1 [...] (Portable) IMPRESSION: No Acute Findings. Reading Location: PSYCHIATRIC CC: Dr. Rishi Vasquez DO; LILLIAM Joshua ~ Parcel [employer] Order Clerk: Signed [facility]04-19-2025 Evaluation note* Diagnosis Onset Date Resolution Status Admit Date Acute UTI acute March 07 4:25pm SHAYY (acute kidney injury) acute March 07, 2025 4:25pm Anemia acute March 07 4:25pm Contusion of left hip acute Apr 2024 4:25pm GI bleed acute March 07 4:25pm Recurrent falls acute February 4:25pm Rhabdomyolysis acute February 4:25pm Chronic kidney disease chronic Ap ril 2024 4:25pm [facility] Work Phone: 1(862) 442-252002-06-2025 Telephone encounter Note* Telephone Encounter - Sara [...] Solis RN December 25, 2024 5:59 PM [facility]02-06-2025 Miscellaneous Notes* Telephone Encounter - Sara Solis [...] 25, 2024 5:59 PM [facility]25 NoteHNO ID: [id number] Author: RISHI VASQUEZ, DO Service: ? Author [...] Seeing Dr. Franco for pain mgmt at [facility] and she is now taking Lyrica instead [...] mellitus (HCC) Coronary artery disease Dr. Ch Asphalt Patcher, 90% blockage- unable to do stenting Diabetes mellitus type 2 in obese Diabetic feet (HCC) Gangrene (HCC) 2012 RIGHT FOOT Hypertension Mild non proliferative diabetic retinopathy (HCC) 06/11/2013 Both eyes, [facility]-03/25/2020 left mild, right moderate Multiple thyroid nodules last US 01/2015 Peripheral artery disease (HCC) due to Diabetes mellitus, Dr. Kwaku Moscoso Rotator cuff syndrome of left shoulder Dr. Del[facility] PAST SURGICAL HISTORY Procedure Laterality Date [...] 04-08-13 ROTATOR CUFF REPAIR 03/11/14 Dr. Deluna [facility] SLCTV CATHJ EA 1ST ORD ABDL [...] 1 tablet by paolo (more content not included)...[facility]01-17-2025 History of Present illness Narrative* Rishi Vasquez, [...] walking. Seeing Dr. Headley pain mgmt at [facility] and she is now taking Lyrica instead [...] mellitus (HCC) Coronary artery disease Dr. Ch Asphalt Patcher, 90% blockage- unable to do stenting Diabetes mellitus type 2 in obese Diabetic feet (HCC) Gangrene (HCC) 2012 RIGHT FOOT Hypertension Mild non proliferative diabetic retinopathy (HCC) 06/11/2013 Both eyes, [facility]-03/25/2020 left mild, right moderate Multiple thyroid [...] ROTATOR CUFF REPAIR 03/11/14 Dr. Regi [facility] SLCTV CATHJ EA 1ST ORD ABDL PEL/LXTR [...] Take 1 tablet by mouth once daily. Ytfcvene-Uehs-Spr-Folic Acid 18-0.4 mg tab Take 1 tablet [...] agreed with the plan. Rishi Vasquez DO [address] [place] [address] documented in this encounterThe [facility]10-28-2024 Telephone encounter Note * Telephone Encounter - Meagan Martinez MA - 09/15/2024 10:28 AM EDT Call to pt and notified her of response below from Provider. Pt verbalized understanding. Meagan Martinez MA [facility]10-28-2024 Miscellaneous Notes* Telephone Encounter - Meagan Martinez [...] out to provider. Requests call back at [phone] with provider response. Clemencia Chapman RN documented in this encounterThe [facility]10-26-2024 Telephone encounter Note * Telephone Encounter - Rishi Vasquez DO - 09/13/2024 12:24 PM EDT Okay with these considerations by specialist Rishi Vasquez DO [facility]10-23-2024 Telephone encounter Note* Telephone Encounter - Clemencia [...] out to provider. Requests call back at [phone] with provider response. Clemencia Chapman RN [facility]10-01-2024 Miscellaneous Notes* Telephone Encounter - Leatha Long [...] EDT Pt wrote into the office via Immedia on 08/16/24 with questions regarding medications. Please [...] HAS HELPED. GELY NEWMAN documented in this encounterThe [facility] Hospital [facility]woods10-01-2024 Telephone encounter Note * Telephone Encounter - Leatha Long LPN - 08/19/2024 2:29 PM EDT Patient notified via voice mail message. Leatha Long LPN [facility]10-01-2024 Telephone encounter Note* Telephone Encounter - Jesenia Mcgee PA-C - 08/19/2024 1:35 PM EDT Please let patient know that she can take Fish Oil 1000 mg. Jesenia Mcgee PA-C 08/19/2024 [facility] Work Phone: [phone]) 885-913609-30-2024 Telephone encounter Note* Telephone Encounter - Meaagn Martinez MA - 08/18/2024 8:47 AM EDT Pt wrote into the office via Immedia on 08/16/24 with questions regarding medications. Please [...] WENT WELL AND HAS HELPED. GELY NEWMAN [facility]09-30-2024 Telephone encounter Note* Telephone Encounter - Meagan Martinez MA - 08/18/2024 8:46 AM EDT Turned into TE and routed to PCP to advise. Meagan Martinez MA [facility]09-30-2024 Miscellaneous Notes* Telephone Encounter - Meagan Martinez MA - 08/18/2024 8:46 AM EDT Turned into TE and routed to PCP to advise. Meagan Martinez MA documented in this encounterThe [facility]woods09-24-2024 Telephone encounter Note * Telephone Encounter - Nasim López LPN - 08/12/2024 4:58 PM EDT Pt. informed via My Chart [facility]09-24-2024 Miscellaneous Notes* Telephone Encounter - Nasim Jauregui [...] advise, Hina Lomeli RN documented in this encounterThe [facility]09-24-2024 Telephone encounter Note * Telephone Encounter - Rishi Vasquez DO - 08/12/2024 4:54 PM EDT Patient has some chronic kidney disease stage 3, which is from her diabetes. She needs to make surethat the specialist doesn't think this will be a concern. Her GFR is 48 Rishi Vasquez DO [facility]09-23-2024 Telephone encounter Note* Telephone Encounter - Meagan [...] NAME OF THE MEDICATION IS ISCHROLBARSA. THE [employer] SAID IT IS A STEROID. WHAT DO YOU THINK. I AM GOING TO CALL AND CANCEL THE APPOINTMENT FOR SUNDAY AND RESCHEDULE FOR ANOTHER DAY AND HOPETHAT I HEAR FROM YOU. THANK YOU FOR YOUR TIME AND UNDERSTANDING ON THE ISSUE. WILL AWAIT YOUR REPLY GELY NEWMAN [facility]09-20-2024 Telephone encounter Note* Telephone Encounter - Hina [...] Please review and advise, Hina Lomeli RN [facility]07-26-2024 Telephone encounter Note* Telephone Encounter - Nasim López LPN - 06/13/2024 11:14 AM EDT Needs referral faxed to [facility] for Pain Management. This has been faxed. [facility]07-26-2024 Miscellaneous Notes* Telephone Encounter - Nasim Jauregui LPN - 06/13/2024 11:14 AM EDT Needs referral faxed to [facility] for Pain Management. This has been faxed. documented in this encounterThe Surgical Hospital [facility]woods07-23-2024 NoteHNO ID: [id number] Author: ?, ?, ? Service: ? Author Type: ? Type: Progress Notes Filed: 06/10/2024 13:07 Note Text: POPULATION HEALTH NAVIGATION OUTREACH Action/FYI [place] Support: Called pt to schedule an appt in Pain Management. Lvm for pt to call [phone]. Reason for Outreach Care Gap/HCC or Scheduling Wellness Visits Care Gaps due: Specialty Scheduling Patient Contacted: Unable or unnecessary to reach patient: Left message MyChart message sent Navigation Signature: Gordon A Roverto June 10, 2024 1:06 [facility]07-23-2024 History of Present illness Narrative* Gordon Min - 06/10/2024 1:06 PM EDT POPULATION HEALTH NAVIGATION OUTREACH Action/FYI [facility] [place] Support: Called pt to schedule an appt in Pain Management. Lvm for pt to call [phone]. Reason for Outreach Care Gap/HCC or Scheduling Wellness Visits Care Gaps due: Specialty Scheduling Patient Contacted: Unable or unnecessary to reach patient: Left message Quid message sent Navigation Signature: Gordon Min June 10, 2024 1:06 PM documented in this encounterThe [facility] Hospital [facility]07-23-2024 NotePatient Outreach (NETNAV) GELY NEWMAN ([id number]) 1950 F Date Time Provider Department 06/10/24 NO PCP NETNAV During your visit today, we recorded the following information about you: Gordon Min 06/10/2024 1:07 PM Signed POPULATION HEALTH NAVIGATION OUTREACH Action/[facility] Support: Called pt to schedule an appt in Pain Management. Lvm for pt to call [phone]. Reason for Outreach Care Gap/HCC or Scheduling Wellness Visits Care Gaps due: Specialty Scheduling Patient Contacted: Unable or unnecessary to reach patient: Left message Quid message sent Navigation Signature: Gordon Min June [...] 1 tablet by mouth once daily. - Qurrnzja-Tsdz-Igi-Folic Acid 18-0.4 mg tab Take 1 tablet [...] [L72.3, L08.9] 02/26/2019 Coronary artery disease involving [place] heart *05/28/2019 Abnormal urine odor [R82.90] 05/28/2019 [...] lef*06/04/2024 Encounter Status:Closed by GORDON MIN on 06/10/24[facility]07-17-2024 Telephone encounter Note* Telephone Encounter - Keisha Coronado RN - 06/04/2024 3:59 PM EDT Spoke with patient. Given message from provider's office. Patient verbalizes understanding. Keisha Coronado RN [facility]07-17-2024 Miscellaneous Notes* Telephone Encounter - Keisha Coronado [...] mammogram in 1 year. Thanks BOB Ernst documented in this encounterThe [facility] Hospital [facility]07-17-2024 Telephone encounter Note * Telephone Encounter - Aiyana Gaffeny LPN - 06/04/2024 2:49 PM EDT Phoned patient left message to return call and ask to speak to a nurse. [facility]07-17-2024 Telephone encounter Note* Telephone Encounter - Rishi Vasquez DO - 06/04/2024 2:36 PM EDT Please inform patient that her mammogram is normal/negative. She will need routine screening mammogram in 1 year. Thanks Rishi Vasquez DO' [facility]07-17-2024 Note* Letter - Coordinator, Mammography - 06/04/2024 2:01 PM EDT June 04, 2024 PID: [id number] Gely Newman [address] [place] [address] Dear Ms. Newman, We are pleased to [...] report will be kept on [facility] at [facility] as part of your permanent medical record and are available for your continuing care. Thank you for allowing us to help in meeting your health care needs. Sincerely, Dr. Monteiro Interpreting Radiologist [facility] (Normal over 40) [facility]07-17-2024 Miscellaneous Notes* Letter - Coordinator, Mammography - 06/04/2024 2:01 PM EDT June 04, 2024 PID: [id number] Gely Newman [address] [place] [address] Dear Ms. Newman, We are pleased to [...] report will be kept on file at [facility] as part of your permanent medical record and are available for your continuing care. Thank you for allowing us to help in meeting your health care needs. Sincerely, Dr. Monteiro Interpreting Radiologist [facility] (Normal over 40) documented in this encounterThe Surgical Hospital [facility]woods07-17-2024 NoteHNO ID: [id number] Author: RISHI VASQUEZ, DO Service: ? Author [...] mellitus (HCC) Coronary artery disease Dr. Ch Asphalt Patcher, 90% blockage- unable to do stenting Diabetes mellitus type 2 in obese Diabetic feet (HCC) Gangrene (HCC) 2012 RIGHT FOOT Hypertension Mild non proliferative diabetic retinopathy (HCC) 06/11/2013 Both eyes, [facility]-03/25/2020 left mild, right moderate Multiple thyroid nodules last US 01/2015 Peripheral artery disease (HCC) due to Diabetes mellitus, Dr. Kwaku Moscoso Rotator cuff syndrome of left shoulder Dr[facility] PAST SURGICAL HISTORY Procedure Laterality Date [...] 04-08-13 ROTATOR CUFF REPAIR 03/11/14 Dr. Del[facility] SLCTV CATHJ EA 1ST ORD ABDL [...] by mouth two t (more content not included)...[facility]07-17-2024 History of Present illness Narrative* Rishi Vasquez, [...] mellitus (HCC) Coronary artery disease Dr. Ch Asphalt Patcher, 90% blockage- unable to do stenting Diabetes mellitus type 2 in obese Diabetic feet (HCC) Gangrene (HCC) 2012 RIGHT FOOT Hypertension Mild non proliferative diabetic retinopathy (HCC) 06/11/2013 Both eyes, [facility]-03/25/2020 left mild, right moderate Multiple thyroid nodules last US 01/2015 Peripheral artery disease (HCC) due to Diabetes mellitus, Dr. Kwaku Moscoso Rotator cuff syndrome of left shoulder Dr. Del[facility] PAST SURGICAL HISTORY Procedure Laterality Date [...] 04-08-13 ROTATOR CUFF REPAIR 03/11/14 Dr. Deluna [facility] SLCTV CATHJ EA 1ST ORD ABDL [...] Take 1 tablet by mouth once daily. Hddpjebs-Qrqa-Kgf-Folic Acid 18-0.4 mg tab Take 1 tablet [...] agreed with the plan. Rishi Vasquez DO [address] [place] [address] documented in this encounterThe [facility]07-16-2024 History of Present illness Narrative* Elizabeth Sandoval [...] PATIENT PRESENTS WITH AN IMPLANTABLE OR ATTACHED DIRECTOR OF CORPORATE SPONSORSHIPS: No RADIOLOGY DEPARTMENT: Mammography PERIPHERAL IV DATA: Not applicable SIGNED BY: RT Mono(Chau) June 03, 2024 9:08 AM documented in this encounterThe [facility]07-16-2024 NoteHNO ID: [id number] Author: ELIZABETH SANDOVAL RT(Chau) Service: ? Author [...] PATIENT PRESENTS WITH AN IMPLANTABLE OR ATTACHED DIRECTOR OF CORPORATE SPONSORSHIPS: No RADIOLOGY DEPARTMENT: Mammography PERIPHERAL IV DATA: Not applicable SIGNED BY: RT Mono(R) June 03, 2024 9:08 [facility]07-01-2024 Telephone encounter Note* Telephone Encounter - Joanie Rosario LPN - 05/19/2024 12:29 PM EDT Pt was notified of such. [facility]07-01-2024 Miscellaneous Notes* Telephone Encounter - Joanie Rosario LPN - 05/19/2024 12:29 PM EDT Pt was notified of such. * Telephone Encounter - Clary Adnres APRN.CNP - 05/19/2024 11:31 AM EDT Labs are signed as pended. Please make sure she knows these are to be fasting. Thank you, Clary Andres APRN.MARK * Telephone Encounter - Meagan Martinez MA - 05/19/2024 9:16 AM EDT Pt sent in Immedia message asking for lab orders for her upcoming appt 06/04/24. She would like these ordered so she can schedule lab appt. Please notify her once these have been ordered. Labs pended,please review and file. Meagan Martinez MA documented in this encounterThe [facility]07-01-2024 Telephone encounter Note * Telephone Encounter - Clary Andres APRN.CNP - 05/19/2024 11:31 AM EDT Labs are signed as pended. Please make sure she knows these are to be fasting. Thank you, Clary Andres APRN.FLAKE CUTTER OPERATOR [facility]07-01-2024 Telephone encounter Note* Telephone Encounter - Meagan Martinez MA - 05/19/2024 9:16 AM EDT Pt sent in Immedia message asking for lab orders for her upcoming appt 06/04/24. She would like these ordered so she can schedule lab appt. Please notify her once these have been ordered. Labs pended,please review and file. Meagan Martinez MA [facility]07-01-2024 Telephone encounter Note* Telephone Encounter - Meagan Martinez MA - 05/19/2024 9:15 AM EDT Started TE and routed to Provider. Meagan Martinez MA [facility]07-01-2024 Miscellaneous Notes* Telephone Encounter - Meagan Martinez MA - 05/19/2024 9:15 AM EDT Started TE and routed to Provider. Meagan Martinez MA documented in this encounterThe [facility]05-06-2024 Telephone encounter Note * Telephone Encounter - Michaela Millan MA - 03/24/2024 9:52 AM EDT Patient has been identified by name and date of : Yes, Provider Rishi Vasquez, DO Date 2023 Time 9:52 AM Patient phones for refill(s): Requested Prescriptions Pending Prescriptions Disp Refills glimepiride (AMARYL) 4 mg tablet 30 tablet 11 Sig: Take 1 tablet by mouth daily with breakfast. Date of last office visit in primary care: 12/05/2023 Date of next office visit in primary care: 06/04/2024 Please advise. Thank you. Michaela Millan MA. [facility]05-06-2024 Miscellaneous Notes* Telephone Encounter - Michaela Millan [...] you. Michaela Millan MA. documented in this encounterThe [facility]05-02-2024 History of Present illness Narrative* Anselmo Marr [...] Therapeutic exercise, Neuromuscular re- education, Manual therapy, Self-custodial management, and Gait training. Updated: 02/14/24 and [...] 1043 Anselmo Marr PT documented in this encounterThe [facility] Hospital [facility]woods04-22-2024 History of Present illness Narrative* Thomas Keisha, ANISA - 03/10/2024 11:34 AM EDT Program_ID:[id number] Access Code: [email or web address] URL: [email or web address] Date: 03-10-2024 Prepared By: Anselmo Marr Program [...] 2 sets - 10 reps * Ricardo Littlejohn PT - 03/10/2024 10:55 AM EDT Episode [...] deviations identified in the objective section above. Self-[facility] Management: 1: Pt's questions answered in regards [...] 1144 ANISA Rodriguez PT documented in this encounterThe [facility]woods04-18-2024 History of Present illness Narrative* Anselmo Marr, PT - 03/06/2024 11:00 AM EDT Episode [...] LEVEL OF FUNCTION: TREATMENT: Therapeutic Exercise: 1: [employer] StepOne seat #11 x6 minutes (Pt provided [...] 1044 Anselmo Marr PT documented in this encounterThe [facility]woods03-21-2024 Miscellaneous Notes* Telephone Encounter - Lebron Jacome RN - 02/07/2024 2:13 PM EDT Faxed general surgery referral and US thyroid/parathyroid to Dr. Kwaku Moscoso, per patient request (reports Dr. Moscoso never received them). . Confirmation received. * Telephone Encounter - Selma Galeano - 01/14/2024 2:38 PM EST Faxed Selma Galeano documented in this encounterThe [facility] Hospital [facility]woods03-19-2024 History of Present illness Narrative* Keisha Guzman PTA - 02/05/2024 9:22 AM EDT Program_ID:[id number] Access Code: [email or web address] URL: [email or web address] Date: 02-05-2024 Prepared By: Anselmo Marr Program [...] 1 sets - 3 reps * Anselmo Marr, PT - 02/05/2024 8:44 AM EDT Episode [...] use of cane. TREATMENT: Therapeutic Exercise: 1: [employer] StepOne seat #12 x6 minutes (1:1 throughout.) [...] 929 ANISA Rodriguez PT documented in this encounterThe [facility]03-13-2024 History of Present illness Narrative* Anselmo Marr [...] cane to therapy. TREATMENT: Therapeutic Exercise: 1: [employer] StepOne seat #12 x6 minutes (1:1 throughout. [...] 1050 Anselmo Marr PT documented in this encounterThe [facility]03-11-2024 Miscellaneous Notes* Telephone Encounter - Laura Isaac [...] you. Laura Isaac LPN. documented in this encounterThe [facility]woods03-06-2024 History of Present illness Narrative* Anselmo Marr [...] LEVEL OF FUNCTION: TREATMENT: Therapeutic Exercise: 1: [employer] StepOne seat #12 x6 minutes (1:1 throughout. [...] Marr PT - 01/23/2024 10:31 AM EST Program_ID:[id number] Access Code: [email or web address] URL: [email or web address] Date: 01-23-2024 Prepared By: Anselmo Marr Program [...] sets - 10 reps documented in this encounterThe Surgical Hospital [facility]woods02-27-2024 History of Present illness Narrative* Anselmo Marr [...] Planned: 6 Planned Treatment Interventions: Therapeutic exercise (58627), Neuromuscular re- education (20190), Manual therapy (46166), Therapeutic activities (18231), Self- custodial management (96163), Gait Training (67037), Patient/Family/Caregiver Education, Body Mechanics Training, Functional training [...] Marr PT - 01/15/2024 10:42 AM EST Program_ID:[id number] Access Code: [email or web address] URL: [email or web address]/ Date: 01-15-2024 Prepared By: Anselmo Marr Program Notes Exercises - Hooklying Single Knee to Chest Stretch - 3 x daily - 7 x weekly - sets - 3 reps - Supine Double Knee to Chest - 3 x daily - 7 x weekly - sets - 3 reps documented in this encounterThe [facility]02-22-2024 Miscellaneous Notes* Telephone Encounter - Keisha Coronado [...] of the nodules esophoria documented in this encounterThe Surgical Hospital At [facility]woods02-14-2024 Miscellaneous Notes* Telephone Encounter - Ira Moreno RN - 01/02/2024 6:25 PM EST patient notified of information and would like scheduled for therapy. Patient can do Mon-Sun-Sun 8-12 or - 930-12 * Telephone Encounter - Selma Galeano [...] Kerr LPN - 12/27/2023 2:04 PM EST MyChart message: I HAVE COME TO THE CONCLUSION THAT THE PAIN I AM HAVING IS COMMING FROM MY SCIATIC NERVE. IT WAKES ME UP AT NIGHT AND IS GOING DOWN THE BACK OF BOTH LEGS. IS THERE ANYTHING THAT [facility] CAN PERSCRIBE FOR THAT? THE GIRL THAT DID MY ULTRASOUND LAST WEEK SAID THAT SHE HAD THE SAME THING AND THEY PERSCRIBED AN ANTI-INFLAMATORY FOR4 HER TO TAKE. WILL AWAIT YOUR REPLY. THANK YOU, GELY NEWMAN documented in this encounterThe Surgical Hospital [facility]woods02-08-2024 Miscellaneous Notes* Telephone Encounter - Betsey Kerr LPN - 12/27/2023 2:04 PM EST Sent to provider in phone encounter. documented in this encounterThe Surgical Hospital At [facility]woods02-01-2024 History of Present illness Narrative* Rebecca Puente [...] PATIENT PRESENTS WITH AN IMPLANTABLE OR ATTACHED DIRECTOR OF CORPORATE SPONSORSHIPS: No RADIOLOGY DEPARTMENT: Ultrasound PERIPHERAL IV DATA: Not applicable SIGNED BY: Rebecca Puente RDMS RVT December 20, 2023 4:21 PM documented in this encounterThe Surgical Hospital [facility]woods01-22-2024 NoteIMPRESSION: DEGENERATIVE CHANGE IN ALIGNMENT ABNORMALITIES DESCRIBED. PROGRESSION PRIOR STUDY. NO ACUTE ABNORMALITY Parcel Post Order Clerk: SANDRA Transcribe Date/Time: Dec 10 2023 1:03P Dictated by : CHASE SUE MD This examination was interpreted and the report reviewed and electronically signed by: CHASE SUE MD on Dec 10 2023 1:17PM EST DIVISION OF [id number] History of Present illness Narrative* Sienna Mendoza [...] 10, 2023 8:44 AM documented in this encounterThe [facility]woods11-15-2023 Miscellaneous Notes* Telephone Encounter - Aiyana Gaffney [...] end of the week. documented in this encounterThe [facility] Hospital [facility]woods10-10-2023 Miscellaneous Notes* Telephone Encounter - Dillon Watts APRN.CNP - 08/28/2023 7:55 AM EDT Noted, thank you. Dillon Watts APRN.FLAKE CUTTER OPERATOR * Telephone Encounter - Lebron Jacome RN - 08/23/2023 11:57 AM EDT Pt returned call and given provider's message below with verbalized understanding. Patient reports Dr. Membreno[facility] ordered the wound culture, from her bige. States she does not know why he [...] results to Dr. Membreno at fax # [phone]. Confirmation received. * Telephone Encounter - Aiyana [...] SARIAH Morrison: Miscellaneous Lab documented in this encounterThe Surgical Hospital [facility]woods09-13-2023 Miscellaneous Notes* Telephone Encounter - Nasim López [...] EDT Pt had blood work done at [facility]. View External Labs - Microbiology [ID [id number]] View External Labs - Miscellaneous Lab [ID [id number]] documented in this encounterThe [facility]woods08-22-2023 Miscellaneous Notes* Telephone Encounter - Kristie Delarosa LPN - 07/10/2023 11:54 AM EDT Pt notified of same, verbalizes understanding. Kristie Delarosa LPN * Telephone Encounter - Danyelle Tripp PA-C - 07/10/2023 11:02 AM EDT Let patient know that repeat Mamm/US is normal. Return to yearly screenings. documented in this encounterThe [facility]08-22-2023 History of Present illness Narrative* Rebecca Puente [...] 10, 2023 2:57 PM documented in this encounterThe [facility]08-22-2023 History of Present illness Narrative* Elizabeth Sandoval [...] 10, 2023 9:56 AM documented in this encounterThe [facility]07-17-2023 History of Present illness Narrative* Rishi Vasquez DO - 06/04/2023 11:42 AM EDT Patient presents with: 6 Month Exam HPI: Gely Newman is a 73 year old female who presents to the office today for review of health conditions. Concerns today: Carotid artery US on 06/22/[address] Moscoso, surgeon, on 07/10/23 for follow up CAD, has recently seen Dr. Schultz/Rick Begreron TOP DISTRIBUTION EXECUTIVE, no recent new testing, no recent symptoms [...] mellitus (HCC) Coronary artery disease Dr. Ch Asphalt Patcher, 90% blockage- unable to do stenting Diabetes mellitus type 2 in obese (HCC) Diabetic feet (HCC) Gangrene (HCC) 2012 RIGHT FOOT Hypertension Mild non proliferative diabetic retinopathy (HCC) 06/11/2013 Both eyes, [facility]03/[facility]/2020 left mild, right moderate Multiple thyroid nodules last US 01/2015 Peripheral artery disease (HCC) due to Diabetes mellitus, Dr. Kwaku Moscoso Rotator cuff syndrome of left shoulder Dr. [facility] PAST SURGICAL HISTORY Procedure Laterality Date [...] CUFF [facility]PA[facility] [...] Take 1 tablet by mouth once daily. Vctlntiu-Eewz-Hgh-Folic Acid 18-0.4 mg tab Take 1 tablet [...] with the plan. Rishi Vasquez DO [address] [place] [address] documented in this encounterThe [facility]07-11-2023 Miscellaneous Notes* Telephone Encounter - Jessie Collins [...] views. Danyelle Tripp PA-C documented in this encounterThe Surgical Hospital [facility]07-11-2023 Miscellaneous Notes* Letter - Coordinator, Mammography - 05/29/2023 12:21 PM EDT May 30, 2023 PID: [id number] Gely Newman [address] [place] [address] Dear Ms. Trent, Your recent breast imaging exam on 05/29/2023 showed a possible finding that requires additional imaging studies for a complete evaluation. Most such findings are probably benign (not cancer). If you have a healthcare provider who ordered/prescribed your screening mammogram: Please call [phone] or EXT: [id number] to schedule an appointment for your additional [...] and reports are kept on file at [facility] as part of your permanent medical record, and are available for your continuing care. Thank you for allowing us to help in meeting your health care needs. Sincerely, Dr. Stubbs Interpreting Radiologist [facility] (Additional imaging) documented in this [facility]The [facility] History of Present illness Narrative* Hawa Will [...] IV DATA: Not applicable SIGNED BY: RT Jordan(Chau) May 29, 2023 9:58 AM documented in this encounterThe [facility]-10-2023 Miscellaneous Notes* Telephone Encounter - Michaela Millan Ma - 05/28/2023 10:17 AM EDT Last office visit: 12/05/22 F/u scheduled: 06/04/23 Michaela Millan Ma documented in this encounterThe [facility]04-24-2023 Miscellaneous Notes* Telephone Encounter - Jessie Collins LPN - 03/12/2023 1:57 PM EDT Reina with Dr. Garner's office called and identified pt with name and date of . Pt getting DM shoes from them and they received everything except the office note from Dr. Sebastian 12-11-22. Requested this be faxed to them. Faxed to [phone]. Done. Jessie Collins LPN documented in this [facility]03-22-2023 Miscellaneous Notes* Telephone Encounter - Clary Andres APRN.CNP - 02/07/2023 3:05 PM EDT Order signed. Clary Andres APRN.CNP * Telephone Encounter - Selma Galeano - 02/05/2023 1:21 PM EDT Order pended Selma Galeano documented in this [facility]03-06-2023 Miscellaneous Notes* Telephone Encounter - Jessie Collins LPN - 01/22/2023 3:41 PM EST Spoke with pt and information listed below given. Pt verbalizes understanding. Jessie Collins LPN * Telephone Encounter - Any Rodriguez LPN - 01/22/2023 2:17 PM EST Message left for pt to return call to a nurse. * Telephone Encounter - Dillon Wtats APRN.MARK - 01/22/2023 11:46 AM EST The following [...] want to do a PA? Reference # [id number] documented in this encounterThe [facility]23 Miscellaneous Notes* Telephone Encounter - Joanie Rosario LPN - 01/08/2023 11:53 AM EST Rosalie--12/05/22 Nov--06/04/23 Last refill--07/17/22 180 with 0 refills Last labs--12/14/22 documented in this encounterThe [facility]-17-2023 Miscellaneous Notes* Telephone Encounter - Nasim López [...] needed Rishi Vasquez DO documented in this encounterThe [facility]02-16-2023 Miscellaneous Notes* Telephone Encounter - Joanie Rosario LPN - 01/04/2023 11:56 AM EST Spoke with pt gave information provided. [pt voices understanding. * Telephone Encounter - Rishi Vasquez DO - 01/04/2023 11:28 AM EST Please inform patient that her NM thyroid uptake scan shows no concerning abnormal uptake Rishi Vasquez DO documented in this encounterThe [facility]02-09-2023 History of Present illness Narrative* Evelin Alfaro, [...] [address] PERFORMED: No IV SITE: [place] only - not applicable, oral or physician administered agents given to patient POST EXAM PIV STATUS: Not applicable PROCEDURE TYPE: NM INJECT: Thyroid Uptake and Scan. 375 microcuries Nal-123 Capsules. No other medications given.. ADMINISTRATION TIME: 09:22 PATIENT DISCHARGED TO: Ambulatory patient, left [place] department area. A Diagnostic radioactive procedure has taken place, with no further precautions necessary other than routine body substance precautions. More information regarding radiation safety can be found usingthis link: [email or web address] SIGNATURE: ISMAEL Mcpherson PATIENT NAME: Gely Newman DATE: December 28, 2022 TIME: 09:25 AM PAGER/CONTACT #: documented in this encounterThe [facility]02-01-2023 History of Present illness Narrative* Rebecca Puente [...] Not applicable SIGNED BY: Rebecca Puente RDMS [facility] December 20, 2022 11:23 AM documented in this encounterThe [facility]01-19-2023 Miscellaneous Notes* Telephone Encounter - Joanie Rosario LPN - 12/07/2022 10:41 AM EST Called pt left message as such. * Telephone Encounter - Dillon Watts APRN.CNP - 12/07/2022 10:09 AM EST No need for another carotid ultrasound at this time. Dillon Watts APRN.CNP * Telephone Encounter - Joanie Rosario LPN - 12/07/2022 9:57 AM EST Mrs. Newman came to [facility] , she states was scheduled for [...] to Rebeka to view. documented in this encounterThe [facility]01-17-2023 History of Present illness Narrative* Rishi Vasquez, - 12/05/2022 10:01 AM EST Patient presents [...] mellitus (HCC) Coronary artery disease Dr. Ch As[facility], 90% blockage- unable to do stenting Diabetes mellitus type 2 in obese (HCC) Diabetic feet (HCC) Gangrene (HCC) 2012 RIGHT FOOT Hypertension Mild non proliferative diabetic retinopathy (HCC) 06/11/2013 Both eyes, Dr. Ortiz [facility]-03/25/2020 left mild, right moderate Multiple thyroid nodules last US 01/2015 Peripheral artery disease (HCC) due to Diabetes mellitus, Dr. Kwaku Moscoso Rotator cuff syndrome of left shoulder Dr. Regi Thompson [facility] PAST SURGICAL HISTORY Procedure Laterality Date AMPUTATION [...] ROTATOR CUFF REPAIR 03/11/14 Dr. Regi Thompson [facility]CTV CATHJ EA 1ST ORD ABDL PEL/LXTR [...] Take 1 tablet by mouth once daily. Odtjfgag-Cqmn-Psz-Folic Acid 18-0.4 mg tab Take 1 tablet [...] with the plan. Rishi Vasquez DO [address] [place] [address] documented in this encounterThe [facility]11-05-2022 History of Present illness Narrative* Camille Mitchell PA-C - 09/23/2022 10:45 AM EDT This note was created using NoteWriter. Subjective Gely Newman is a 72 year [...] mellitus (HCC) Coronary artery disease Dr. Ch [facility] Patcher, 90% blockage- unable to do stenting Diabetes mellitus type 2 in obese (HCC) Diabetic feet (HCC) Gangrene (HCC) 2012 RIGHT FOOT Hypertension Mild non proliferative diabetic retinopathy (HCC) 06/11/2013 Both eyes, [facility] Ortiz [facility]-03/25/2020 left mild, right moderate Multiple thyroid nodules last US 01/2015 Peripheral artery disease (HCC) due to Diabetes mellitus, Dr. Kwaku Moscoso Rotator cuff syndrome of left shoulder Dr. Deluna [facility] Current Outpatient Medications Medication Sig Dispense Refill [...] Take 1 tablet by mouth once daily. Iqoiipuj-Mepl-Xoo-Folic Acid 18-0.4 mg tab Take 1 tablet [...] 04-08-13 ROTATOR CUFF REPAIR 03/11/14 Dr. Deluna [facility] CATHJ EA 1ST ORD ABDL PEL/LXTR ART [facility] 06-07-16 APLL FAMILY HISTORY Problem [...] CULTURE Camille Mitchell PA-C documented in this encounterThe [facility]10-20-2022 Miscellaneous Notes* Telephone Encounter - Sara Solis RN - 09/07/2022 11:05 AM EDT Pt called and is notified of providers results and instructions. Pt voices understanding. Pt sent information through Quid per Pt request. Sara Solis RN * [...] would like her to discuss with her family medicine physician assistant to decrease this dose to 20 mg a day due to these abnormal kidney levels. Also her TSH is slightly low. I don't think she is taking any thyroid medication. Need for recheck of thyroid labs in 1 month as ordered Rishi Vasquez DO documented in this encounterThe [facility]09-27-2022 History of Present illness Narrative* Camille Mitchell PA-C - 08/15/2022 1:07 PM EDT Images from the original note were not included. This note was created using HelpingDocriter. Subjective Gely Newman is a 72 year [...] mellitus (HCC) Coronary artery disease Dr. Ch Asphalt Patcher, 90% blockage- unable to do stenting Diabetes mellitus type 2 in obese (HCC) Diabetic feet (HCC) Gangrene (HCC) 2012 RIGHT FOOT Hypertension Mild non proliferative diabetic retinopathy (HCC) 06/11/2013 Both eyes, [facility] Ortiz [facility]-03/25/2020 left mild, right moderate Multiple thyroid nodules last US 01/2015 Peripheral artery disease (HCC) due to Diabetes mellitus, Dr. Kwaku Moscoso Rotator cuff syndrome of left shoulder Dr. Deluna [facility] Current Outpatient Medications Medication Sig Dispense Refill [...] Take 1 tablet by mouth once daily. Vmjtjklh-Fagz-Gkw-Folic Acid 18-0.4 mg tab Take 1 tablet [...] 04-08-13 ROTATOR CUFF REPAIR 03/11/14 Dr. Deluna [facility] SLCTV CATHJ EA 1ST ORD ABDL PEL/LXTR ART [facility] 06-07-16 APLL FAMILY HISTORY Problem [...] RIGHT Camille Mitchell PA-C documented in this encounterThe [facility]07-30-2022 History of Present illness Narrative* Kena Older, 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.FLAKE CUTTER OPERATOR - 06/17/2022 8:33 AM EDT CC: Patient [...] mellitus (HCC) Coronary artery disease Dr. Ch [facility] Patcher, 90% blockage- unable to do stenting Diabetes mellitus type 2 in obese (HCC) Diabetic feet (HCC) Gangrene (HCC) 2012 RIGHT FOOT Hypertension Mild non proliferative diabetic retinopathy (HCC) 06/11/2013 Both eyes, Dr. Ortiz [facility]-03/25/2020 left mild, right moderate Multiple thyroid nodules last US 01/2015 Peripheral artery disease (HCC) due to Diabetes mellitus, Dr. Kwaku Msocoso Rotator cuff syndrome of left shoulder Dr. Deluna [facility] PAST SURGICAL HISTORY Procedure Laterality Date [...] 04-08-13 ROTATOR CUFF REPAIR 03/11/14 Dr. Deluna [facility] CATHJ EA 1ST ORD ABDL [...] Take 1 tablet by mouth once daily. Iqqbythp-Pihj-Nly-Folic Acid (CENTRUM COMPLETE) 18-0.4 mg tab Take [...] plan. Kena Sims APRN.CNP documented in this encounterThe [facility]07-18-2022 Miscellaneous Notes* Telephone Encounter - Sara Solis [...] this. Dillon Watts APRN.CNP documented in this encounterThe [facility]07-18-2022 Miscellaneous Notes* Letter - Mammography Coordinator - 06/05/2022 12:46 PM EDT June 05, 2022 PID: [id number] Gely Newman [address] [place] [address] Dear Ms. Newman, Your recent breast imaging exam on 06/05/2022 showed a possible finding that requires additional imaging studies for a complete evaluation. Most such findings are probably benign (not cancer). If you have a healthcare provider who ordered/prescribed your screening mammogram: Please call [phone] or EXT: [id number] to schedule an appointment for your additional [...] and reports are kept on file at [facility] as part of your permanent medical record, and are available for your continuing care. Thank you for allowing us to help in meeting your health care needs. Sincerely, Dr. Benjamin Interpreting Radiologist [facility] (Additional imaging) documented in this encounterThe [facility]07-18-2022 History of Present illness Narrative* RT Mono(Chau) - 06/05/2022 10:10 AM EDT Radiology Service [...] Not applicable SIGNED BY: RT Mono(Chau) June 05, 2022 10:08 AM documented in this encounterThe [facility]07-13-2022 History of Present illness Narrative* Rishi Vasquez, - 05/31/2022 10:58 AM EDT Patient presents with: 6 Month Exam HPI: Gely Newman is a 72 year old female who presents to the office today for review of health conditions. Concerns today: PAD, hx of foot ulcerations, currently with one on her right foot, managed by [employer] Hx of CAD, PAD, sees [facility]. Will have follow up in the [...] mellitus (HCC) Coronary artery disease Dr. Ch Asphalt Patcher, 90% blockage- unable to do stenting Diabetes mellitus type 2 in obese (HCC) Diabetic feet (HCC) Gangrene (HCC) 2012 RIGHT FOOT Hypertension Mild non proliferative diabetic retinopathy (HCC) 06/11/2013 Both eyes, [facility]-03/25/2020 left mild, right moderate Multiple thyroid nodules last US 01/2015 Peripheral artery disease (HCC) due to Diabetes mellitus, Dr. Kwaku Moscoso Rotator cuff syndrome of left shoulder Dr. Deluna [facility] PAST SURGICAL HISTORY Procedure Laterality Date [...] CUFF REPAIR [facility]/11[facility] AP[facility] Social History Tobacco Use Smoking [...] Take 1 tablet by mouth once daily. Juokbrwj-Uhpg-Zqo-Folic Acid (CENTRUM COMPLETE) 18-0.4 mg tab Take [...] arise. 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 Coronary artery disease involving [place] heart, unspecified vessel or lesion type, unspecified whether angina present - ICD9: 414.01, ICD10: I25.10 - f/u with Asphalt Patcher, no new symptoms 9. Fatigue, unspecified type [...] with the plan. Rishi Vasquez DO [address] [place] [address] documented in this encounterThe [facility]07-06-2022 Miscellaneous Notes* Telephone Encounter - Yvonne Garcia - 05/24/2022 1:32 PM EDT LM on patient's VM to schedule consult for colonoscopy. First attempt. * Telephone Encounter - Garrick La - 05/24/2022 1:25 PM EDT Patient due for 5 year follow up colonoscopy. Patient is not appropriate for open access. Please schedule office consult Garrick La documented in this encounterThe [facility]06-14-2022 Miscellaneous Notes* Telephone Encounter - Jessie Collins [...] you. Jessie Collins LPN documented in this encounterThe [facility]06-06-2022 Miscellaneous Notes* Telephone Encounter - Clary Johnson APRN.CNP - 04/24/2022 12:26 PM EDT PDM website checked and validated. All prescriptions have [...] advise. Georgia Nicole LPN documented in this encounterThe [facility]05-05-2022 Miscellaneous Notes* Telephone Encounter - Dillon Watts [...] refills Last labs-- 03/07/22 documented in this encounterThe [facility]05-05-2022 Miscellaneous Notes* Telephone Encounter - Joanie Rosario LPN - 03/23/2022 8:43 AM EDT rosalie-- 12/02/21 Last refill-- 04/06/21 30 with 11 refills Last labs- 03/07/22 documented in this encounterThe [facility]05-04-2022 Evaluation note* Diagnosis Stage 3 chronic kidney disease, unspecified whether stage 3a or 3b CKD (HCC)- Primary 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) Type II or unspecified type diabetes mellitus with peripheral circulatory disorders, not stated as uncontrolled documented in this encounter [facility]04-08-2022 Miscellaneous Notes* Telephone Encounter - Selma Sandres Ma - 02/24/2022 10:31 AM EDT Pt [...] concerns. Dillon Watts APRN.CNP documented in this encounterThe [facility]12-27-2017 History of Past illness Narrative* Problem Noted Date Resolved Date Benign paroxysmal positional vertigo 11/14/2017 11/30/2021 Essential hypertension 11/30/2015 6 documented as of this encounter (statuses as of 03/22/2022) [facility] History of Past illness Narrative* Problem Noted Date Resolved Date Benign paroxysmal positional vertigo 11/14/2017 11/30/2021 Essential hypertension 11/30/2015 6 documented as of this encounter (statuses as of 03/23/2022) [facility] History of Past illness Narrative* Problem Noted Date Resolved Date Benign paroxysmal positional vertigo 11/14/2017 11/30/2021 Essential hypertension 11/30/2015 6 documented as of this encounter (statuses as of 04/24/2022) [facility] History of Past illness Narrative* Problem Noted Date Resolved Date Benign paroxysmal positional vertigo 11/14/2017 11/30/2021 Essential hypertension 11/30/2015 6 documented as of this encounter (statuses as of 04/26/2022) [place] [address]-27-2017 History of Past illness Narrative* Problem Noted Date Resolved Date Benign paroxysmal positional vertigo 11/14/2017 11/30/2021 Essential hypertension 11/30/2015 6 documented as of this encounter (statuses as of 05/02/2022) [place] [address]-27-2017 History of Past illness Narrative* Problem Noted Date Resolved Date Benign paroxysmal positional vertigo 11/14/2017 11/30/2021 Essential hypertension 11/30/2015 6 documented as of this encounter (statuses as of 05/24/2022) [facility] of Past illness Narrative* Problem Noted Date Resolved Date Benign paroxysmal positional vertigo 11/14/2017 11/30/2021 Essential hypertension 11/30/2015 6 documented as of this encounter (statuses as of 05/31/2022) [facility] History of Past illness Narrative* Problem Noted Date Resolved Date Benign paroxysmal positional vertigo 11/14/2017 11/30/2021 Essential hypertension 11/30/2015 6 documented as of this encounter (statuses as of 06/06/2022) [facility] History of Past illness Narrative* Problem Noted Date Resolved Date Benign paroxysmal positional vertigo 11/14/2017 11/30/2021 Essential hypertension 11/30/2015 6 documented as of this encounter (statuses as of 06/06/2022) [facility] History of Past illness Narrative* Problem Noted Date Resolved Date Benign paroxysmal positional vertigo 11/14/2017 11/30/2021 Essential hypertension 11/30/2015 6 documented as of this encounter (statuses as of 06/07/2022) [place] [address]-27-2017 History of Past illness Narrative* Problem Noted Date Resolved Date Benign paroxysmal positional vertigo 11/14/2017 11/30/2021 Essential hypertension 11/30/2015 6 documented as of this encounter (statuses as of 06/17/2022) [place] [address]-27-2017 History of Past illness Narrative* Problem Noted Date Resolved Date Benign paroxysmal positional vertigo 11/14/2017 11/30/2021 Essential hypertension 11/30/2015 6 documented as of this encounter (statuses as of 08/15/2022) [facility] of Past illness Narrative* Problem Noted Date Resolved Date Benign paroxysmal positional vertigo 11/14/2017 11/30/2021 Essential hypertension 11/30/2015 6 documented as of this encounter (statuses as of 09/07/2022) [place] [address]-27-2017 History of Past illness Narrative* Problem Noted Date Resolved Date Benign paroxysmal positional vertigo 11/14/2017 11/30/2021 Essential hypertension 11/30/2015 6 documented as of this encounter (statuses as of 09/09/2022) [place] [address]-27-2017 History of Past illness Narrative* Problem Noted Date Resolved Date Benign paroxysmal positional vertigo 11/14/2017 11/30/2021 Essential hypertension 11/30/2015 6 documented as of this encounter (statuses as of 09/23/2022) [facility] of Past illness Narrative* Problem Noted Date Resolved Date Benign paroxysmal positional vertigo 11/14/2017 11/30/2021 Essential hypertension 11/30/2015 6 documented as of this encounter (statuses as of 12/05/2022) [place] [address]-27-2017 History of Past illness Narrative* Problem Noted Date Resolved Date Benign paroxysmal positional vertigo 11/14/2017 11/30/2021 Essential hypertension 11/30/2015 6 documented as of this encounter (statuses as of 12/07/2022) [place] [address]-27-2017 History of Past illness Narrative* Problem Noted Date Resolved Date Benign paroxysmal positional vertigo 11/14/2017 11/30/2021 Essential hypertension 11/30/2015 6 documented as of this encounter (statuses as of 01/04/2023) [address]27-2017 History of Past illness Narrative* Problem Noted Date Resolved Date Benign paroxysmal positional vertigo 11/14/2017 11/30/2021 Essential hypertension 11/30/2015 6 documented as of this encounter (statuses as of 01/05/2023) [address]27-2017 History of Past illness Narrative* Problem Noted Date Resolved Date Benign paroxysmal positional vertigo 11/14/2017 11/30/2021 Essential hypertension 11/30/2015 6 documented as of this encounter (statuses as of 01/09/2023) [address]27-2017 History of Past illness Narrative* Problem Noted Date Resolved Date Benign paroxysmal positional vertigo 11/14/2017 11/30/2021 Essential hypertension 11/30/2015 6 documented as of this encounter (statuses as of 02/07/2023) [address]27-2017 History of Past illness Narrative* Problem Noted Date Resolved Date Benign paroxysmal positional vertigo 11/14/2017 11/30/2021 Essential hypertension 11/30/2015 6 documented as of this encounter (statuses as of 03/02/2023) [place] [address]27-2017 History of Past illness Narrative* Problem Noted Date Resolved Date Benign paroxysmal positional vertigo 11/14/2017 11/30/2021 Essential hypertension 11/30/2015 6 documented as of this encounter (statuses as of 03/12/2023) [address]27-2017 History of Past illness Narrative* Problem Noted Date Resolved Date Benign paroxysmal positional vertigo 11/14/2017 11/30/2021 Essential hypertension 11/30/2015 6 documented as of this encounter (statuses as of 03/12/2023) [place] [address]-27-2017 History of Past illness Narrative* Problem Noted Date Diagnosed Date Resolved Date Benign paroxysmal positional vertigo 11/14/2017 11/30/2021 Essential hypertension 11/30/201510/24 documented as of this encounter (statuses as of 05/28/2023) [facility] of [facility] Narrative* Problem Noted Date Diagnosed Date Resolved Date Benign paroxysmal positional vertigo 11/14/2017 11/30/2021 Essential hypertension 11/30/201510/24 documented as of this encounter (statuses as of 05/30/2023) [facility] of Past illness Narrative* Problem Noted Date Diagnosed Date Resolved Date Benign paroxysmal positional vertigo 11/14/2017 11/30/2021 Essential hypertension 11/30/201510/24 documented as of this encounter (statuses as of 05/31/2023) [facility] of [facility] illness Narrative* Problem Noted Date Diagnosed Date Resolved Date Benign paroxysmal positional vertigo 11/14/2017 11/30/2021 Essential hypertension 11/30/201510/24 documented as of this encounter (statuses as of 06/05/2023) [facility] of [facility] illness Narrative* Problem Noted Date Diagnosed Date Resolved Date Benign paroxysmal positional vertigo 11/14/2017 11/30/2021 Essential hypertension 11/30/201510/24 documented as of this encounter (statuses as of 07/10/2023) [facility] of [facility] illness Narrative* Problem Noted Date Diagnosed Date Resolved Date Benign paroxysmal positional vertigo 11/14/2017 11/30/2021 Essential hypertension 11/30/201510/24 documented as of this encounter (statuses as of 08/01/2023) [facility] of [facility] Narrative* Problem Noted Date Diagnosed Date Resolved Date Benign paroxysmal positional vertigo 11/14/2017 11/30/2021 Essential hypertension 11/30/201510/24 documented as of this encounter (statuses as of 08/28/2023) [facility] of Past illness Narrative* Problem Noted Date Diagnosed Date Resolved Date Benign paroxysmal positional vertigo 11/14/2017 11/30/2021 Essential hypertension 11/30/201510/24 documented as of this encounter (statuses as of 08/31/2023) [facility] of Past illness Narrative* Problem Noted Date Diagnosed Date Resolved Date Benign paroxysmal positional vertigo 11/14/2017 11/30/2021 Essential hypertension 11/30/201510/24 documented as of this encounter (statuses as of 09/23/2023) [address]27-2017 History of Past illness Narrative* Problem Noted Date Diagnosed Date Resolved Date Benign paroxysmal positional vertigo 11/14/2017 11/30/2021 Essential hypertension 11/30/201510/24 documented as of this encounter (statuses as of 09/23/2023) [address]27-2017 History of Past illness Narrative* Problem Noted Date Diagnosed Date Resolved Date Benign paroxysmal positional vertigo 11/14/2017 11/30/2021 Essential hypertension 11/30/201510/24 documented as of this encounter (statuses as of 09/23/2023) [address]27-2017 History of Past illness Narrative* Problem Noted Date Diagnosed Date Resolved Date Benign paroxysmal positional vertigo 11/14/2017 11/30/2021 Essential hypertension 11/30/201510/24 documented as of this encounter (statuses as of 09/23/2023) [address]27-2017 History of Past illness Narrative* Problem Noted Date Diagnosed Date Resolved Date Benign paroxysmal positional vertigo 11/14/2017 11/30/2021 Essential hypertension 11/30/201510/24 documented as of this encounter (statuses as of 09/23/2023) [address]27-2017 History of Past illness Narrative* Problem Noted Date Diagnosed Date Resolved Date Benign paroxysmal positional vertigo 11/14/2017 11/30/2021 Essential hypertension 11/30/201510/24 documented as of this encounter (statuses as of 10/04/2023) [address]27-2017 History of Past illness Narrative* Problem Noted Date Diagnosed Date Resolved Date Benign paroxysmal positional vertigo 11/14/2017 11/30/2021 Essential hypertension 11/30/201510/24 documented as of this encounter (statuses as of 12/21/2023) [address]27-2017 History of Past illness Narrative* Problem Noted Date Diagnosed Date Resolved Date Benign paroxysmal positional vertigo 11/14/2017 11/30/2021 Essential hypertension 11/30/201510/24 documented as of this encounter (statuses as of 12/27/2023) [facility]12-27-2017 History of Past illness Narrative* Problem Noted Date Diagnosed Date Resolved Date Benign paroxysmal positional vertigo 11/14/2017 11/30/2021 Essential hypertension 11/30/201510/24 documented as of this encounter (statuses as of 01/16/2024) [facility]12-27-2017 History of Past illness Narrative* Problem Noted Date Diagnosed Date Resolved Date Benign paroxysmal positional vertigo 11/14/2017 11/30/2021 Essential hypertension 11/30/201510/24 documented as of this encounter (statuses as of 01/23/2024) [facility]12-27-2017 History of Past illness Narrative* Problem Noted Date Diagnosed Date Resolved Date Benign paroxysmal positional vertigo 11/14/2017 11/30/2021 Essential hypertension 11/30/201510/24 documented as of this encounter (statuses as of 01/28/2024) [facility]12-27-2017 History of Past illness Narrative* Problem Noted Date Diagnosed Date Resolved Date Benign paroxysmal positional vertigo 11/14/2017 11/30/2021 Essential hypertension 11/30/201510/24 documented as of this encounter (statuses as of 01/30/2024) [facility]12-27-2017 History of Past illness Narrative* Problem Noted Date Diagnosed Date Resolved Date Benign paroxysmal positional vertigo 11/14/2017 11/30/2021 Essential hypertension 11/30/201510/24 documented as of this encounter (statuses as of 02/05/2024) [facility]12-27-2017 History of Past illness Narrative* Problem Noted Date Diagnosed Date Resolved Date Benign paroxysmal positional vertigo 11/14/2017 11/30/2021 Essential hypertension 11/30/201510/24 documented as of this encounter (statuses as of 02/07/2024) [facility]12-27-2017 History of Past illness Narrative* Problem Noted Date Diagnosed Date Resolved Date Benign paroxysmal positional vertigo 11/14/2017 11/30/2021 Essential hypertension 11/30/201510/24 documented as of this encounter (statuses as of 02/22/2024) [facility]12-27-2017 History of Past illness Narrative* Problem Noted Date Diagnosed Date Resolved Date Benign paroxysmal positional vertigo 11/14/2017 11/30/2021 Essential hypertension 11/30/201510/24 documented as of this encounter (statuses as of 03/06/2024) [facility]12-27-2017 History of Past illness Narrative* Problem Noted Date Diagnosed Date Resolved Date Benign paroxysmal positional vertigo 11/14/2017 11/30/2021 Essential hypertension 11/30/201510/24 documented as of this encounter (statuses as of 03/07/2024) [facility] note* Diagnosis Onset Date Resolution Status Personal history of colonic polyps acute Carotid artery stenosis acut e Essential hypertension acute Atherosclerosis of coronary artery of [place] heart without angina pectoris chronic Hyperlipidemia chronic Peripheral vascular occlusive disease [facility] Work Phone: evaluation note* Diagnosis Essential hypertension Unspecified essential hypertension documented in this encounter [facility] note* Diagnosis Peripheral vascular occlusive disease (HCC)- Primary Peripheral vascular disease, unspecified documented in this encounter [facility] note* Diagnosis Peripheral vascular occlusive disease (HCC) Peripheral vascular disease, unspecified documented in this encounter [facility] note* Diagnosis Essential hypertension Unspecified essential hypertension documented in this encounter [facility] note* Diagnosis Diabetes mellitus type 2 with [...] arthropathy, multiple sites Coronary artery disease involving [place] heart, unspecified vessel or lesion type, unspecified whether angina present Fatigue, unspecified type documented in this encounter [facility] note* Diagnosis Encounter for screening mammogram for malignant neoplasm of breast Other screening mammogram documented in this encounter [facility] note* Diagnosis Abnormal mammogram- Primary Abnormal mammogram, unspecified documented in this encounter [facility] note* Diagnosis Acute pain of right shoulder- Primary documented in this encounter [facility] noteNo assessment information availableWUniversity 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 Essential hypertension chron ic Hyperlipidemia chronic Peripheral vascular occlusive disease [facility] Work Phone: Evaluation note* Diagnosis Low TSH level- Primary Nonspecific abnormal results of thyroid function study Abnormal thyroid biopsy Abnormal thyroid blood test Nonspecific abnormal results of thyroid function study Borderline abnormal thyroid function test Nonspecific abnormal results of thyroid function study [facility] Diagnosis Acute cystitis with hematuria- Primary Acute cystitis [facility] Diagnosis Onset Date Resolution Status Atherosclerosis of coronary artery of [place] heart without angina pectoris chronic 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 artery stenosis 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 Essential hypertension chron ic Hyperlipidemia chronic Peripheral vascular occlusive disease [facility] Work Phone: Evaluation note* Diagnosis Diabetes mellitus [...] stage 3a (HCC) [facility] Diagnosis Diabetes mellitus type 2 with peripheral artery disease Type II or unspecified type diabetes mellitus with peripheral circulatory disorders, not stated as uncontrolled [facility] Diagnosis Encounter for screening mammogram for malignant neoplasm of breast- Primary Other screening mammogram [facility]* Diagnosis 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) Type II or unspecified type diabetes mellitus with peripheral circulatory disorders, not stated as uncontrolled [facility] Diagnosis Peripheral vascular occlusive disease (HCC) Peripheral vascular disease, unspecified [facility]* Diagnosis Abnormal mammogram- Primary Abnormal mammogram, unspecified [facility] Diagnosis Dysuria- Primary Acute cystitis with [...] arthropathy, multiple sites [facility]* Diagnosis Onset Date Resolution Status Atherosclerosis of coronary artery of [place] heart without angina pectoris chronic Carotid artery stenosis 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 Essential hypertension chron ic Hyperlipidemia chronic Peripheral vascular occlusive disease chronic Carotid artery stenosis 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* Diagnosis Abnormal mammogram Abnormal mammogram, unspecified documented [facility] this [facility]* Diagnosis Abnormal thyroid function test Nonspecific abnormal results of thyroid function study [facility]* Diagnosis Peripheral vascular occlusive disease (HCC) Peripheral vascular disease, unspecified [facility]* Diagnosis Multiple thyroid nodules Nontoxic multinodular goiter [facility] Diagnosis Chronic midline low back pain without sciatica [facility]* Diagnosis Chronic bilateral low back pain with bilateral sciatica- Primary [facility] Peripheral vascular occlusive disease (HCC) Peripheral vascular disease, unspecified [facility] Diagnosis Chronic bilateral low back pain with bilateral sciatica- Primary [facility] Diagnosis Onset Date Resolution Status Systolic murmur acute Atherosclerosis of coronary artery of [place] heart without angina pectoris chronic Essential hypertension chron ic Hyperlipidemia chronic [facility] Work Phone: Evaluation note* Diagnosis Chronic midline low back pain without sciatica- Primary [facility]* Diagnosis Multiple thyroid nodules- Primary Nontoxic multinodular goiter documented in this encounter [facility] [facility]* Diagnosis Chronic bilateral low back pain with bilateral sciatica- Primary documented in this [facility] [place] [facility]* Diagnosis Chronic bilateral low back pain with bilateral sciatica- Primary documented in this [facility] [facility]* Diagnosis Multiple thyroid nodules- Primary Nontoxic [...] Fatigue, unspecified type documented in this encounter [facility] [facility]* Diagnosis Encounter for screening mammogram for malignant neoplasm of breast Other screening mammogram [facility]* Diagnosis Chronic midline low back pain [...] Nontoxic multinodular goiter [facility]* Diagnosis Chronic midline low back pain without sciatica documented in this encounter [facility] [facility]* Diagnosis Injury of sternum, initial encounter Wrist injury, right, initial encounter [facility]* Diagnosis Acute pain of right shoulder documented in this [facility] [facility]* Diagnosis Diabetes mellitus type 2 with [...] arthropathy, multiple sites [facility]* Diagnosis Essential hypertension Unspecified essential hypertension [facility]* Diagnosis Hospital discharge follow-up- Primary Other follow-up examination Diabetic foot ulcer associated with type 2 diabetes mellitus, unspecified laterality, unspecified part of foot, unspecified ulcer stage (HCC) Abnormality of gait Falling episodes Lack of coordination [facility]* Diagnosis 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)- Primary Type II or unspecified type diabetes mellitus with peripheral circulatory disorders, not stated as uncontrolled Hyperglycemia Other abnormal glucose [facility] Diagnostic Procedure Only (Routine) - Closed Specialty Diagnoses / Procedures Referred By Viraj banegas Referred To Contact [facility] Diagnoses Encounter for screening mammogram for malignant neoplasm of breast Procedures ALEJANDRO SCREENING SCREENING MAMMOGRAPHY BI 2-VIEW BREAST INC CAD Rishi Vasquez DO [address] [place] [address] [facility] [address] [place] [id number] Referral ID Status Reason Start Date Expiration Date V isits Requested Visits Authorized [id number] Closed Auto-Generate d Referral 12/05/2021 01/04/2023 1 1 [facility] for referral (narrative)* Diagnostic Procedure Only (Routine) - Authorized Specialty Diagnoses / Procedures Referred By Viraj banegas Referred To Contact [facility] Diagnoses Abnormal mammogram Procedures US BREAST LTD RT US BREAST UNI REAL TIME WITH IMAGE LIMITED Dillon Watts APRN.FLAKE CUTTER OPERATOR [address] [place] [address] [facility] [address] [place] [address] Referral ID Status Reason Start Date Expiration Date Visits Requested Visits Authorized [id number] Authorized Auto-Generat ed Referral 06/05/2022 07/05/2023 1 1 * Diagnostic Procedure Only (Routine) - Authorized Specialty Diagnoses / Procedures Referred By Contac t Referred To Contact [facility] Diagnoses Abnormal mammogram Procedures ALEJANDRO DIAGNOSTIC RT DIAGNOSTIC MAMMOGRAPHY COMPUTER-AIDED [facility]CJ [facility] Dillon Watts APRN.FLAKE CUTTER OPERATOR [address] [place] [address] [facility] [address] [place] [address] Referral ID Status Reason Start Date Expiration Date Visits Requested Visits Authorized [id number] Authorized Auto-Generat ed Referral 06/05/2022 07/05/2023 1 1 [facility] for referral (narrative)* Diagnostic Procedure Only (Urgent) - Closed Specialty Diagnoses / Procedures Referred By Contac t Referred To Contact [facility]AG[facility] Diagnoses Acute pain of right shoulder Procedures XR SHOULDER GENERAL 3V OR MORE AP/TRUE AP/OTHER RIGHT RADEX SHOULDER COMPLETE MINIMUM 2 VIEWS Kena Sims APRN.FLAKE CUTTER OPERATOR [address] [place] [address] [facility] Referral ID Status Reason Start Date Expiration Date V isits Requested Visits Authorized [id number] Closed Auto-Generate d Referral 06/17/2022 07/17/2023 1 1 [facility] for referral (narrative)* Diagnostic Procedure Only (Urgent) - Closed Specialty Diagnoses / Procedures Referred By Contac t Referred To Contact X[facility] IMAGING Diagnoses Wrist injury, right, initial encounter Procedures XR WRIST INJURY 4V PA/LAT/OBL/SCAPH RIGHT RADEX WRIST COMPLETE MINIMUM 3 VIEWS Camille Mitchell, PA-C [address] [place] [address] [facility] Referral ID Status Reason Start Date Expiration Date V isits Requested Visits Authorized [id number] Closed Auto-Generate d Referral 08/15/2022 09/14/2023 1 1 * Diagnostic Procedure Only (Urgent) - Closed Specialty Diagnoses / Procedures Referred By Contac t Referred To Contact XR IMAGING Diagnoses Injury of sternum, initial encounter Procedures XR STERNUM 2V BARAJAS/LAT RADEX STERNUM MINIMUM 2 VIEWS Camille Mitchell PA-C [address] [place] [address] [facility] Referral ID Status Reason Start Date Expiration Date V isits Requested Visits Authorized [id number] Closed Auto-Generate d Referral 08/15/2022 09/14/2023 1 1 [facility] for referral (narrative)* Outpatient Procedure (Routine) - Authorized Specialty Diagnoses / Procedures Referred By Contac t Referred To Contact [facility] Diagnoses Carotid atherosclerosis, bilateral Procedures US CAROTID ARTERIES [facility] DUPLEX SCAN EXTRACRANIAL ART COMPL BI STUDY Rishi Vasquez DO [address] [place] [address] [facility] [address] [place] [address] Referral ID Status Reason Start Date Expiration Date Visits Requested Visits Authorized [id number] Authorized Auto-Generat ed Referral 12/05/2022 12/05/2023 1 1 [facility] for referral (narrative)* Diagnostic Procedure Only (Routine) - Pending Review Specialty Diagnoses / Procedures Referred By Contac t Referred To Contact [facility] Diagnoses Encounter for screening mammogram for malignant neoplasm of breast Procedures ALEJANDRO SCREENING SCREENING MAMMOGRAPHY BI 2-VIEW BREAST INC Clary Huerta, 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.FLAKE CUTTER OPERATOR [address] [place] [address] [facility] [address] [place] [address] Referral ID Status Reason Start Date Expiration Date Visits Requested Visits Authorized [id number] Pending Review Auto-Generat ed Referral 02/07/2023 03/06/2024 1 1 [facility] for referral (narrative)* Diagnostic Procedure Only (Routine) - Authorized Specialty Diagnoses / Procedures Referred By Contac t Referred To Contact [facility] Diagnoses Abnormal mammogram Procedures US BREAST LTD RIGHT US BREAST UNI REAL TIME WITH IMAGE LIMITED Danyelle Tripp PA-C [address] [place] [address] [facility] [address] [place] [address] Referral ID Status Reason Start Date Expiration Date Visits Requested Visits Authorized [id number] Authorized Auto-Generat ed Referral 05/29/2023 06/27/2024 1 1 * Diagnostic Procedure Only (Routine) - Authorized Specialty Diagnoses / Procedures Referred By Leeannaac t Referred To Contact [facility] Diagnoses Abnormal mammogram Procedures ALEJANDRO DIAGNOSTIC RIGHT DIAGNOSTIC MAMMOGRAPHY COMPUTER-AIDED DETCJ UNI Danyelle Tripp PA-C [address] [place] [address] [facility] [address] [place] [address] Referral ID Status Reason Start Date Expiration Date Visits Requested Visits Authorized [id number] Authorized Auto-Generat ed Referral 05/29/2023 06/27/2024 1 1 [facility] for referral (narrative)* Diagnostic Procedure Only (Routine) - Closed Specialty Diagnoses / Procedures Referred By Contac t Referred To Contact [facility] Diagnoses Encounter for screening mammogram for malignant neoplasm of breast Procedures ALEJANDRO SCREENING SCREENING MAMMOGRAPHY BI 2-VIEW BREAST INC Clary Huerta APRN.CNP [address] [place] [address] [facility] [address] [place] [address] Referral ID Status Reason Start Date Expiration Date V isits Requested Visits Authorized [id number] Closed Auto-Generate d Referral 02/07/2023 03/06/2024 1 1 [facility] for referral (narrative)* Diagnostic Procedure Only (Routine) - Closed Specialty Diagnoses / Procedures Referred By Contac t Referred To Contact [facility] Diagnoses Abnormal mammogram Procedures US BREAST LTD RIGHT US BREAST UNI REAL TIME WITH IMAGE LIMITED Danyelle Tripp PA-C [address] [place] [address] [facility] [address] [place] [address] Referral ID Status Reason Start Date Expiration Date V isits Requested Visits Authorized [id number] Closed Auto-Generate d Referral 05/29/2023 06/27/2024 1 1 [facility] for referral (narrative)* Diagnostic Procedure Only (Routine) - Closed Specialty Diagnoses / Procedures Referred By Contac t Referred To Contact [facility] Diagnoses Abnormal thyroid function test Procedures NM THY UPTAKE AND SCAN THYROID UPTAKE W/BLOOD FLOW SNGLE/MULT JAMARI Rishi Arnold DO [address] [place] [address] [facility] [address] [place] [address] Referral ID Status Reason Start Date Expiration Date V isits Requested Visits Authorized [id number] Closed Auto-Generate d Referral 12/15/2022 01/14/2024 1 1 [facility] for referral (narrative)* Diagnostic Procedure Only (Routine) - Closed Specialty Diagnoses / Procedures Referred By Contac t Referred To Contact [facility] Diagnoses Abnormal thyroid function test Procedures US THYROID/PARATHYROID US SOFT TISSUE HEAD & NECK REAL TIME IMGE DOCM Rishi Vasquez, DO [address] [place] [address] [place] [address] Referral ID Status Reason Start Date Expiration Date V isits Requested Visits Authorized [id number] Closed Auto-Generate d Referral 12/15/2022 01/14/2024 1 1 [facility] for referral (narrative)* Diagnostic Procedure Only (Routine) - Closed Specialty Diagnoses / Procedures Referred By Contac t Referred To Contact XR IMAGING Diagnoses Chronic midline low back pain without sciatica Procedures XR LUMBAR GENERAL 3V AP/LAT/L5-S1 RADEX SPINE LUMBOSACRAL 2/3 VIEWS Rishi Vasquez DO [address] [place] [address] [place] [address] Referral ID Status Reason Start Date Expiration Date V isits Requested Visits Authorized [id number] Closed Auto-Generate d Referral 12/05/2023 01/03/2025 1 1 [facility] for referral (narrative)* Diagnostic Procedure Only (Urgent) - Closed Specialty Diagnoses / Procedures Referred By Contac t Referred To Contact X[facility] IMAGING Diagnoses Wrist injury, right, initial encounter Procedures XR WRIST INJURY 4V PA/LAT/OBL/SCAPH RIGHT RADEX WRIST COMPLETE MINIMUM 3 VIEWS Camille Mitchell PA-C [address] [place] [address] [place] [address] Referral ID Status Reason Start Date Expiration Date V isits Requested Visits Authorized [id number] Closed Auto-Generate d Referral 08/15/2022 09/14/2023 1 1 * Diagnostic Procedure Only (Urgent) - Closed Specialty Diagnoses / Procedures Referred By Contac t Referred To Contact XR IMAGING Diagnoses Injury of sternum, initial encounter Procedures XR STERNUM 2V BARAJAS/LAT RADEX STERNUM MINIMUM 2 VIEWS Camille Mitchell PA-C [address] [place] [address] [place] [address] Referral ID Status Reason Start Date Expiration Date V isits Requested Visits Authorized [id number] Closed Auto-Generate d Referral 08/15/2022 09/14/2023 1 1 [facility] for referral (narrative)* Diagnostic Procedure Only (Urgent) - Closed Specialty Diagnoses / Procedures Referred By Contcynthia t Referred To Contact XR IMAGING Diagnoses Acute pain of right shoulder Procedures XR SHOULDER GENERAL 3V OR MORE AP/TRUE AP/OTHER RIGHT RADEX SHOULDER COMPLETE MINIMUM 2 VIEWS Kena Schrader APRN.CNP [address] [place] [address] [place] [address] Referral ID Status Reason Start Date Expiration Date V isits Requested Visits Authorized [id number] Closed Auto-Generate d Referral 06/17/2022 07/17/2023 1 1 [facility] for referral (narrative)* Diagnostic Procedure Only (Routine) - Authorized Specialty Diagnoses / Procedures Referred By Viraj banegas Referred To Contact [facility] Diagnoses Encounter for screening mammogram for malignant neoplasm of breast Procedures ALEJANDRO SCREENING W BEN SCREENING DIGITAL BREAST TOMOSYNTHESIS BI SCREENING MAMMOGRAPHY BI 2-VIEW BREAST INC Rishi Reyes DO [address] [place] [address] [facility] [address] [place] [address] Referral ID Status Reason Start Date Expiration Date Visits Requested Visits Authorized [id number] Authorized Auto-Generat ed Referral 12/05/2024 01/04/2026 1 1 [facility] for referral (narrative)No reason for referral information availableWUniversity [facility]als St[facility] Work Phone: Reason for visit Narrative* Diagnostic Procedure Only (Routine) - Closed Specialty Diagnoses / Procedures Referred By Contac t Referred To Contact BR IMAGING Diagnoses Encounter for screening mammogram for malignant neoplasm of breast Procedures ALEJANDRO SCREENING SCREENING MAMMOGRAPHY BI 2-VIEW BREAST INC CAD Rishi Vasquez L, DO [address] [place] [address] [facility] [address] [place] [address] Referral ID Status Reason Start Date Expiration Date V isits Requested Visits Authorized [id number] Closed Auto-Generate d Referral 12/05/2021 01/04/2023 1 1 [facility] for visit Narrative* Diagnostic Procedure Only (Routine) - Closed Specialty Diagnoses / Procedures Referred By Contac t Referred To Contact BR [facility] Diagnoses Encounter for screening mammogram for malignant neoplasm of breast Procedures ALEJANDRO SCREENING SCREENING MAMMOGRAPHY BI 2-VIEW BREAST INC CAD Clary Andres, 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.FLAKE CUTTER OPERATOR [address] [place] [address] [facility] [address] [place] [phone] Referral ID Status Reason Start Date Expiration Date V isits Requested Visits Authorized [id number] Closed Auto-Generate d Referral 02/07/2023 03/06/2024 1 1 [facility] for visit Narrative* Diagnostic Procedure Only (Routine) - Closed Specialty Diagnoses / Procedures Referred By Contac t Referred To Contact [facility] Diagnoses Abnormal mammogram Procedures ALEJANDRO DIAGNOSTIC RIGHT DIAGNOSTIC MAMMOGRAPHY COMPUTER-AIDED DETCJ UNI Danyelle Tripp PA-C [address] [place] [address] [facility] [address] [place] [phone] Referral ID Status Reason Start Date Expiration Date V isits Requested Visits Authorized [id number] Closed Auto-Generate d Referral 05/29/2023 06/27/2024 1 1 [facility] for visit Narrative* Diagnostic Procedure Only (Routine) - Closed Specialty Diagnoses / Procedures Referred By Leeannaac t Referred To Contact MOLECULAR [facility] FUNCTIONAL IMAGING Diagnoses Abnormal thyroid function test Procedures NM THY UPTAKE AND SCAN THYROID UPTAKE W/BLOOD FLOW SNGLE/MULT JAMARI NATALIA Rishi Vasquez L, DO [address] [place] [address] [facility] [address] [place] [address] Referral ID Status Reason Start Date Expiration Date V isits Requested Visits Authorized [id number] Closed Auto-Generate d Referral 12/15/2022 01/14/2024 1 1 [facility] for visit Narrative* Diagnostic Procedure Only (Routine) - Closed Specialty Diagnoses / Procedures Referred By Contac t Referred To Contact [facility] Diagnoses Encounter for screening mammogram for malignant neoplasm of breast Procedures ALEJANDRO SCREENING W BEN SCREENING DIGITAL BREAST TOMOSYNTHESIS BI SCREENING MAMMOGRAPHY BI 2-VIEW BREAST INC CAD Rishi Vasquez L, DO [address] [place] [address] [facility] [address] [place] [address] Referral ID Status Reason Start Date Expiration Date V isits Requested Visits Authorized [id number] Closed Auto-Generate d Referral 12/05/2023 01/03/2025 1 1 [facility] for visit Narrative* Diagnostic Procedure Only (Routine) - Closed Specialty Diagnoses / Procedures Referred By Contac t Referred To Contact XR IMAGING Diagnoses Chronic midline low back pain without sciatica Procedures XR LUMBAR GENERAL 3V AP/LAT/L5-S1 RADEX SPINE LUMBOSACRAL 2/3 VIEWS Rishi Vasquez, DO [address] [place] [address] [place] [address] Referral ID Status Reason Start Date Expiration Date V isits Requested Visits Authorized [id number] Closed Auto-Generate d Referral 12/05/2023 01/03/2025 1 1 [facility] for visit Narrative* Diagnostic Procedure Only (Urgent) - Closed Specialty Diagnoses / Procedures Referred By Contac t Referred To Contact XR IMAGING Diagnoses Wrist injury, right, initial encounter Procedures XR WRIST INJURY 4V PA/LAT/OBL/SCAPH RIGHT RADEX WRIST COMPLETE MINIMUM 3 VIEWS Camille Mitchell, PA-C [address] [place] [address] [place] [address] Referral ID Status Reason Start Date Expiration Date V isits Requested Visits Authorized [id number] Closed Auto-Generate d Referral 08/15/2022 09/14/2023 1 1 [facility] Diagnostic Procedure Only (Urgent) - Closed Specialty Diagnoses / Procedures Referred By Viraj t Referred To Contact XR IMAGING Diagnoses Acute pain of right shoulder Procedures XR SHOULDER GENERAL 3V OR MORE AP/TRUE AP/OTHER RIGHT RADEX SHOULDER COMPLETE MINIMUM 2 VIEWS Kena Schrader, 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.FLAKE CUTTER OPERATOR [address] [place] [address] [place] [address] Referral ID Status Reason Start Date Expiration Date V isits Requested Visits Authorized [id number] Closed Auto-Generate d Referral 06/17/2022 07/17/2023 1 1 [facility] Chief Complaint and Reason for Visit Chief Complaint 2020 CARDIAC REHAB P HASE III MAINTENANCE-SELF PAY PHASE III MAINTENANCE SELF-PAY COLONOSCOPY PHASE III MAINTENANCE SELF-PAY 6 M FU / R/S FROM 2-7 MMM PHASE III MAINTENANCE SELF-PAY Reason for Visit Personal history of colonic polyps Carotid artery stenosis Essential hypertension Atherosclerosis of coronary artery of [place] heart without angina pectoris Hyperlipidemia Peripheral vascular occlusive disease Chief Complaint PHASE III MA INTENANCE SELF-PAY COLONOSCOPY PHASE III MAINTENANCE SELF-PAY 6 M FU / R/S FROM 2-7 MMM PHASE III MAINTENANCE SELF-PAY PHASE III MAINTENANCE SELF-PAY Reason for Visit Personal history of colonic polyps Carotid artery stenosis Essential hypertension Atherosclerosis of coronary artery of [place] heart without angina pectoris Hyperlipidemia Peripheral vascular occlusive disease Chief Complaint COLONOSCOPY PHASE III MAINTENANCE SELF-PAY 6 M FU / R/S FROM 2-7 MMM PHASE III MAINTENANCE SELF-PAY PHASE III MAINTENANCE SELF-PAY PHASE III MAINTENANCE SELF-PAY Reason for Visit Personal history of colonic polyps Carotid artery stenosis Essential hypertension Atherosclerosis of coronary artery of [place] heart without angina pectoris Hyperlipidemia Peripheral vascular [...] steno sis Atherosclerosis of coronary artery of [place] heart without angina pectoris Carotid artery stenosis Essential hypertension Hyperlipidemia Peripheral vascular occlusive disease Chief Complaint PHASE III ALFONSO INTENANCE SELF-PAY CAROTID STENOSIS BILAT CAROTID U/S 06/22 PHASE III MAINTENANCE SELF-PAY 6 M FU PHASE III MAINTENANCE SELF-PAY PHASE III MAINTENANCE SELF-PAY Reason for Visit Carotid artery steno sis Atherosclerosis of coronary artery of [place] heart without angina pectoris Carotid artery stenosis Essential hypertension Hyperlipidemia Peripheral vascular occlusive disease Chief Complaint CAROTID STENOSIS SADIE AT CAROTID U/S 06/22 PHASE III MAINTENANCE SELF-PAY 6 M FU PHASE III MAINTENANCE SELF-PAY PHASE III MAINTENANCE SELF-PAY PHASE III MAINTENANCE SELF-PAY Reason for Visit Carotid artery steno sis Atherosclerosis of coronary artery of [place] heart without angina pectoris Carotid artery stenosis Essential hypertension Hyperlipidemia Peripheral vascular occlusive disease Chief Complaint PHASE III ALFONSO INTENANCE SELF-PAY 6 M FU PHASE III MAINTENANCE SELF-PAY PHASE III MAINTENANCE SELF-PAY PHASE III MAINTENANCE SELF-PAY PVD PHASE III MAINTENANCE SELF-PAY Reason for Visit Atherosclerosis of c oronary artery of [place] heart without angina pectoris Carotid artery stenosis Essential hypertension Hyperlipidemia Peripheral vascular occlusive disease Chief Complaint 6 M FU PHASE III MAINTENANCE SELF-PAY PHASE III MAINTENANCE SELF-PAY PHASE III MAINTENANCE SELF-PAY PVD PHASE III MAINTENANCE SELF-PAY Reason for Visit Atherosclerosis of c oronary artery of [place] heart without angina pectoris Carotid artery stenosis Essential hypertension Hyperlipidemia Peripheral vascular occlusive disease Chief Complaint PHASE III ALFONSO INTENANCE SELF-PAY PHASE III MAINTENANCE SELF-PAY PVD 2022-CR PHASE III MAINTENANCE SELF-PAY 2022 PH III Maintenance Self-Pay Chief Complaint PHASE III MA INTENANCE SELF-PAY PVD PHASE III MAINTENANCE SELF-PAY 2022 PH III Maintenance Self-Pay 2022 PH III Maintenance Self-Pay Chief Complaint PVD CR PHASE III MAINTENANCE SELF-PAY 2022 PH III [...] Visit Atherosclerosis of c oronary artery of [place] heart without angina pectoris Carotid artery stenosis Essential hypertension Hyperlipidemia Peripheral vascular occlusive disease Chief Complaint 2022 PH III Maintena nce Self-Pay 2022 PH III Maintenance Self-Pay 1 Y FU/Prev PFM Pt 2022 PH III Maintenance Self-Pay CAROTID STENOSIS 2022 PH III Maintenance Self-Pay Reason for Visit Atherosclerosis of c oronary artery of [place] heart without angina pectoris Carotid artery stenosis Essential hypertension Hyperlipidemia Peripheral vascular occlusive disease Chief Complaint 2022 PH III Maintena nce Self-Pay 1 Y FU/Prev PFM Pt 2022 PH III Maintenance Self-Pay CAROTID STENOSIS 2022 PH III Maintenance Self-Pay CAROTID YEARLY CHECK 2022 PH III Maintenance Self-Pay Reason for Visit Atherosclerosis of c oronary artery of [place] heart without angina pectoris Carotid artery stenosis [...] Visit Atherosclerosis of c oronary artery of [place] heart without angina pectoris Carotid artery stenosis [...] Systolic murmur Atherosclerosis of coronary artery of [place] heart without angina pectoris Essential hypertension Hyperlipidemia Chief Complaint 2023 PH3 MAINTENANCE SELF PAY 2023 PH3 MAINTENANCE SELF PAY 9 M FU/PREV PFM 2023 PH3 MAINTENANCE SELF PAY Cardiac murmur, unspecified 2023 PH3 MAINTENANCE SELF PAY Reason for Visit Systolic murmur Atherosclerosis of coronary artery of [place] heart without angina pectoris Essential hypertension Hyperlipidemia [...] foot March 07 025 4:25pm Atherosclerosis of [place] of both lower extremities with [...] left foot March 11 5:26pm Atherosclerosis of [place] of both lower extremities with [...] UTI, WOUN DS March 13, 2025 3:14pm 2025 PH3 maintenance-self pay March 19 025 6:48am Hospital FU April 03, 2025 10:32 am Atherosclerosis of [place] arteries of ri ght leg wi April [...] foot March 07 025 4:25pm Atherosclerosis of [place] of both lower extremities with [...] foot March 11 025 5:26pm Atherosclerosis of [place] of both lower extremities with [...] April 03, 2025 10:32 am Atherosclerosis of [place] arteries of ri ght leg wi April 15, 2025 10:51am Atherosclerosis of [place] arteries of ri ght leg wi April [...] April 03, 2025 10:32 am Atherosclerosis of [place] arteries of ri ght leg wi April 15, 2025 10:51am Atherosclerosis of [place] arteries of ri ght leg wi April [...] April 03, 2025 10:32 am Atherosclerosis of [place] arteries of ri ght leg wi April 15, 2025 10:51am Atherosclerosis of [place] arteries of ri t leg wi April 15, 2025 4:38pm CAROTID [...] April 03, 2025 10:32 am Atherosclerosis of [place] arteries of ri ght leg wi April 15, 2025 10:51am Atherosclerosis of [place] arteries of ri ght leg wi April [...] March 07, 2 025 4:25pm Atherosclerosis of [place] of both lower extremities with [...] foot March 11, 025 5:26pm Atherosclerosis of [place] of both lower extremities with [...] 2025 9:17am Atherosclerosis of coronary artery of [place] heart without angina pectoris May 07, 2025 [...] April 03, 2025 10:32 am Atherosclerosis of [place] arteries of ri ght leg wi April 15, 2025 10:51am Atherosclerosis of [place] arteries of ri ght leg wi April [...] April 03, 2025 10:32 am Atherosclerosis of [place] arteries of ri ght leg wi April 15, 2025 10:51am Atherosclerosis of [place] arteries of ri ght leg wi April [...] Yes January 18, 2022 10:55am Power of Sole Layer Hand Yes January 18 10:55am Documents on File Type Date Recorded Patient Air Filler Expl anation Advance Directive(s) Advance Directive(s) 10/25/2016 10:12 AM Advance Directive(s) 10/25/2016 10:01 AM Advance Directive(s) 10/11/2016 4:06 PM Documents on File Type Date Recorded Patient Air Filler Expl anation Advance Directive(s) Advance Directive(s) 10/25/2016 10:12 AM Advance Directive(s) 10/25/2016 10:01 AM Advance Directive(s) 10/11/2016 4:06 PM Documents on File Type Date Recorded Patient Air Filler Expl anation Advance Directive(s) 10/25/2016 10:01 AM Documents on File Type Date Recorded Patient Air Filler Expl anation Advance Directive(s) 10/25/2016 10:01 AM Advance Directive Response Recorded Date/ Time Advance Directives Yes October 12:55pm Living Will Yes January 18, 2022 9:55am Power of Sole Layer Hand Yes January 18 9:55am Advance Directive Response Recorded Date/ Time Advance Directives Yes March 26th, 2 024 3:27pm Living Will Yes February 12, 2024 3:27pm Power of Sole Layer Hand Yes February 11 3:27pm Advance Directive Response Recorded Date/ Time Living Will Yes October 19 1:13am Do you have a Healthcare Power of Sole Layer Hand? Yes October 19, 2024 1:13am Advance Directives Yes April 02 9:13am Advance Directive Response Recorded Date/ Time Living Will Yes October 19 1:13am Do you have a Healthcare Power of Sole Layer Hand? Yes October 19, 2024 1:13am Living Will No March 07, 2025 1:48pm Do you have a Healthcare Power of Sole Layer Hand? No March 07, 2025 1:48pm Advance Directives Yes April 02 9:13am Advance Directive Response Recorded Date/ Time Do you have a Healthcare Pow er of Sole Layer Hand? Yes March 12, 2025 11:42am Name of Medical Power of Sole Layer Hand Julianne hawkins, sister March 12, 2025 11:42am Living Will No March 07, 2025 5:48pm Do you have a Healthcare Pow er of Sole Layer Hand? No March 07, 2025 5:48pm Advance Directives Yes April 02 9:13am Advance Directive Response Recorded Date/ Time Do you have a Healthcare Pow er of Sole Layer Hand? Yes March 12, 2025 11:42am Name of Medical Power of Sole Layer Hand Julianne Louise n, sister March 12, 2025 11:42am Advance Directives on File Yes March 202024 11:26am Living Will Yes April 15, 2025 1 1:26am Do you have a Healthcare Pow er of Sole Layer Hand? Yes April 15, 2025 11:26am Name of Medical Power of Sole Layer Hand Julianne Louise n April 15, 2025 11:26am Advance Directives Yes April 15 11:26am Living Will No March 07, 2025 5:48pm Do you have a Healthcare Pow er of Sole Layer Hand? No March 07, 2025 5:48pm Advance Directive Response Recorded Date/ Time Do you have a Healthcare Pow er of Sole Layer Hand? Yes March 12, 2025 11:42am Name of Medical Power of Sole Layer Hand Julianne hawkins, March 12, 2025 11:42am Advance Directives on File Yes March 202024 11:26am Living Will Yes April 15, 2025 1 1:26am Do you have a Healthcare Pow er of Sole Layer Hand? Yes April 15, 2025 11:26am Name of Medical Power of Sole Layer Hand Julianne hawkins April 15, 2025 11:26am Advance Directives Yes April 15 11:26am Living Will Yes April 02, 2024 9 :13am Do you have a Healthcare Pow er of Sole Layer Hand? Yes April 02, 2024 9:13am Living Will No March 07, 2025 5:48pm Do you have a Healthcare Pow er of Sole Layer Hand? No March 07, 2025 5:48pm Reason for Referral Specialty Diagnoses / Procedures Referred By Contac t Referred To Contact [facility] Diagnoses Chronic midline low back pain without sciatica Procedures CONSULT TO PHYSICAL THERAPY PHYSICAL THERAPY EVALUATION HIGH COMPLEX 45 MINS Rishi Vasquez, DO [address] [place] [address] [facility] [place] [address] [place] [address] Referral ID Status Reason Start Date Expiration Date Visits Requested Visits Authorized [id number] Authorized Auto-Generat ed Referral 11/19/2023 11/18/2024 99 99 Specialty Diagnoses / Procedures Referred By Contac t Referred To Contact General Surgery Diagnoses Multiple thyroid nodules Procedures CONSULT TO GENERAL SURGERY OFFICE/OUTPATIENT [facility] MDM 60 MINUTES iRshi Vasquez, DO [address] [place] [address] Referral ID Status Reason Start Date Expiration Date Visits Requested Visits Authorized [id number] Authorized PCP Requested Referral 01/10/2024 01/09/2025 1 1 Specialty Diagnoses / Procedures Referred By Contac t Referred To Contact Pain Management Diagnoses Chronic midline low back pain without sciatica DDD (degenerative disc disease), lumbar Procedures CONSULT TO PAIN MGT OFFICE/OUTPATIENT NEW HIGH MDM 60 MINUTES Rishi Vasquez, DO [address] [place] [address] Referral ID Status Reason Start Date Expiration Date Visits Requested Visits Authorized [id number] Authorized PCP Requested Referral 06/04/2024 06/04/2025 1 [...] or prosecute any alcohol or drug abuse patient.[facility] the event this information is protected by the Federal Confidentiality of Alcohol and Drug Abuse Patient Records regulations: The Federal rules restrict any use of the information to criminally investigate or prosecute any alcohol or drug abuse patient.[facility] the event this information is protected by the Federal Confidentiality of Alcohol and Drug Abuse Patient Records regulations: The Federal rules restrict any use of the information to criminally investigate or prosecute any alcohol or drug abuse patient.[facility] the event this information is protected by the Federal Confidentiality of Alcohol and Drug Abuse Patient Records regulations: The Federal rules restrict any use of the information to criminally investigate or prosecute any alcohol or drug abuse patient.[facility] the event this information is protected by the Federal Confidentiality of Alcohol and Drug Abuse Patient Records regulations: The Federal rules restrict any use of the information to criminally investigate or prosecute any alcohol or drug abuse patient.[facility] the event this information is protected by the Federal Confidentiality of Alcohol and Drug Abuse Patient Records regulations: The Federal rules restrict any use of the information to criminally investigate or prosecute any alcohol or drug abuse patient.[facility] the event this information is protected by the Federal Confidentiality of Alcohol and Drug Abuse Patient Records regulations: The Federal rules restrict any use of the information to criminally investigate or prosecute any alcohol or drug abuse patient.[facility] the event this information is protected by the Federal Confidentiality of Alcohol and Drug Abuse Patient Records regulations: The Federal rules restrict any use of the information to criminally investigate or prosecute any alcohol or drug abuse patient.[facility] the event this information is protected by the Federal Confidentiality of Alcohol and Drug Abuse Patient Records regulations: The Federal rules restrict any use of the information to criminally investigate or prosecute any alcohol or drug abuse patient.[facility] the event this information is protected by the Federal Confidentiality of Alcohol and Drug Abuse Patient Records regulations: The Federal rules restrict any use of the information to criminally investigate or prosecute any alcohol or drug abuse patient.[facility] the event this information is protected by the Federal Confidentiality of Alcohol and Drug Abuse Patient Records regulations: The Federal rules restrict any use of the information to criminally investigate or prosecute any alcohol or drug abuse patient.[facility]In the event this information is protected by the Federal Confidentiality of Alcohol and Drug Abuse Patient Records regulations: The Federal rules restrict any use of the information to criminally investigate or prosecute any alcohol or drug abuse patient.[facility] the event this information is protected by the Federal Confidentiality of Alcohol and Drug Abuse Patient Records regulations: The Federal rules restrict any use of the information to criminally investigate or prosecute any alcohol or drug abuse patient.[facility] the event this information is protected by the Federal Confidentiality of Alcohol and Drug Abuse Patient Records regulations: The Federal rules restrict any use of the information to criminally investigate or prosecute any alcohol or drug abuse patient.[facility] the event this information is protected by the Federal Confidentiality of Alcohol and Drug Abuse Patient Records regulations: The Federal rules restrict any use of the information to criminally investigate or prosecute any alcohol or drug abuse patient.[facility] the event this information is protected by the Federal Confidentiality of Alcohol and Drug Abuse Patient Records regulations: The Federal rules restrict any use of the information to criminally investigate or prosecute any alcohol or drug abuse patient.[facility] the event this information is protected by the Federal Confidentiality of Alcohol and Drug Abuse Patient Records regulations: The Federal rules restrict any use of the information to criminally investigate or prosecute any alcohol or drug abuse patient.[facility] the event this information is protected by the Federal Confidentiality of Alcohol and Drug Abuse Patient Records regulations: The Federal rules restrict any use of the information to criminally investigate or prosecute any alcohol or drug abuse patient.[facility] the event this information is protected by the Federal Confidentiality of Alcohol and Drug Abuse Patient Records regulations: The Federal rules restrict any use of the information to criminally investigate or prosecute any alcohol or drug abuse patient.[facility]woodsIn the event this information is protected by the Federal Confidentiality of Alcohol and Drug Abuse Patient Records regulations: The Federal rules restrict any use of the information to criminally investigate or prosecute any alcohol or drug abuse patient.[facility] the event this information is protected by the Federal Confidentiality of Alcohol and Drug Abuse Patient Records regulations: The Federal rules restrict any use of the information to criminally investigate or prosecute any alcohol or drug abuse patient.[facility] the event this information is protected by the Federal Confidentiality of Alcohol and Drug Abuse Patient Records regulations: The Federal rules restrict any use of the information to criminally investigate or prosecute any alcohol or drug abuse patient.[facility] the event this information is protected by the Federal Confidentiality of Alcohol and Drug Abuse Patient Records regulations: The Federal rules restrict any use of the information to criminally investigate or prosecute any alcohol or drug abuse patient.[facility]In the event this information is protected by the Federal Confidentiality of Alcohol and Drug Abuse Patient Records regulations: The Federal rules restrict any use of the information to criminally investigate or prosecute any alcohol or drug abuse patient.[facility]woodsIn the event this information is protected by the Federal Confidentiality of Alcohol and Drug Abuse Patient Records regulations: The Federal rules restrict any use of the information to criminally investigate or prosecute any alcohol or drug abuse patient.[facility]In the event this information is protected by the Federal Confidentiality of Alcohol and Drug Abuse Patient Records regulations: The Federal rules restrict any use of the information to criminally investigate or prosecute any alcohol or drug abuse patient.[facility]woodsIn the event this information is protected by the Federal Confidentiality of Alcohol and Drug Abuse Patient Records regulations: The Federal rules restrict any use of the information to criminally investigate or prosecute any alcohol or drug abuse patient.[facility]In the event this information is protected by the Federal Confidentiality of Alcohol and Drug Abuse Patient Records regulations: The Federal rules restrict any use of the information to criminally investigate or prosecute any alcohol or drug abuse patient.[facility]woodsIn the event this information is protected by the Federal Confidentiality of Alcohol and Drug Abuse Patient Records regulations: The Federal rules restrict any use of the information to criminally investigate or prosecute any alcohol or drug abuse patient.[facility]In the event this information is protected by the Federal Confidentiality of Alcohol and Drug Abuse Patient Records regulations: The Federal rules restrict any use of the information to criminally investigate or prosecute any alcohol or drug abuse patient.[facility]woodsIn the event this information is protected by the Federal Confidentiality of Alcohol and Drug Abuse Patient Records regulations: The Federal rules restrict any use of the information to criminally investigate or prosecute any alcohol or drug abuse patient.[facility]woodsIn the event this information is protected by the Federal Confidentiality of Alcohol and Drug Abuse Patient Records regulations: The Federal rules restrict any use of the information to criminally investigate or prosecute any alcohol or drug abuse patient.[facility]woodsIn the event this information is protected by the Federal Confidentiality of Alcohol and Drug Abuse Patient Records regulations: The Federal rules restrict any use of the information to criminally investigate or prosecute any alcohol or drug abuse patient.[facility]woodsIn the event this information is protected by the Federal Confidentiality of Alcohol and Drug Abuse Patient Records regulations: The Federal rules restrict any use of the information to criminally investigate or prosecute any alcohol or drug abuse patient.[facility]woodsIn the event this information is protected by the Federal Confidentiality of Alcohol and Drug Abuse Patient Records regulations: The Federal rules restrict any use of the information to criminally investigate or prosecute any alcohol or drug abuse patient.[facility]woodsIn the event this information is protected by the Federal Confidentiality of Alcohol and Drug Abuse Patient Records regulations: The Federal rules restrict any use of the information to criminally investigate or prosecute any alcohol or drug abuse patient.[facility]woodsIn the event this information is protected by the Federal Confidentiality of Alcohol and Drug Abuse Patient Records regulations: The Federal rules restrict any use of the information to criminally investigate or prosecute any alcohol or drug abuse patient.[facility]woodsIn the event this information is protected by the Federal Confidentiality of Alcohol and Drug Abuse Patient Records regulations: The Federal rules restrict any use of the information to criminally investigate or prosecute any alcohol or drug abuse patient.[facility]woodsIn the event this information is protected by the Federal Confidentiality of Alcohol and Drug Abuse Patient Records regulations: The Federal rules restrict any use of the information to criminally investigate or prosecute any alcohol or drug abuse patient.[facility]woodsIn the event this information is protected by the Federal Confidentiality of Alcohol and Drug Abuse Patient Records regulations: The Federal rules restrict any use of the information to criminally investigate or prosecute any alcohol or drug abuse patient.[facility]woodsIn the event this information is protected by the Federal Confidentiality of Alcohol and Drug Abuse Patient Records regulations: The Federal rules restrict any use of the information to criminally investigate or prosecute any alcohol or drug abuse patient.[facility]woodsIn the event this information is protected by the Federal Confidentiality of Alcohol and Drug Abuse Patient Records regulations: The Federal rules restrict any use of the information to criminally investigate or prosecute any alcohol or drug abuse patient.[facility]woodsIn the event this information is protected by the Federal Confidentiality of Alcohol and Drug Abuse Patient Records regulations: The Federal rules restrict any use of the information to criminally investigate or prosecute any alcohol or drug abuse patient.[facility]woodsIn the event this information is protected by the Federal Confidentiality of Alcohol and Drug Abuse Patient Records regulations: The Federal rules restrict any use of the information to criminally investigate or prosecute any alcohol or drug abuse patient.[facility]woodsIn the event this information is protected by the Federal Confidentiality of Alcohol and Drug Abuse Patient Records regulations: The Federal rules restrict any use of the information to criminally investigate or prosecute any alcohol or drug abuse patient.[facility]woodsIn the event this information is protected by the Federal Confidentiality of Alcohol and Drug Abuse Patient Records regulations: The Federal rules restrict any use of the information to criminally investigate or prosecute any alcohol or drug abuse patient.[facility]woodsIn the event this information is protected by the Federal Confidentiality of Alcohol and Drug Abuse Patient Records regulations: The Federal rules restrict any use of the information to criminally investigate or prosecute any alcohol or drug abuse patient.[facility]woodsIn the event this information is protected by the Federal Confidentiality of Alcohol and Drug Abuse Patient Records regulations: The Federal rules restrict any use of the information to criminally investigate or prosecute any alcohol or drug abuse patient.[facility]woodsIn the event this information is protected by the Federal Confidentiality of Alcohol and Drug Abuse Patient Records regulations: The Federal rules restrict any use of the information to criminally investigate or prosecute any alcohol or drug abuse patient.[facility]woodsIn the event this information is protected by the Federal Confidentiality of Alcohol and Drug Abuse Patient Records regulations: The Federal rules restrict any use of the information to criminally investigate or prosecute any alcohol or drug abuse patient.[facility]woodsIn the event this information is protected by the Federal Confidentiality of Alcohol and Drug Abuse Patient Records regulations: The Federal rules restrict any use of the information to criminally investigate or prosecute any alcohol or drug abuse patient.[facility]woodsIn the event this information is protected by the Federal Confidentiality of Alcohol and Drug Abuse Patient Records regulations: The Federal rules restrict any use of the information to criminally investigate or prosecute any alcohol or drug abuse patient.[facility]woodsIn the event this information is protected by the Federal Confidentiality of Alcohol and Drug Abuse Patient Records regulations: The Federal rules restrict any use of the information to criminally investigate or prosecute any alcohol or drug abuse patient.[facility]woodsIn the event this information is protected by the Federal Confidentiality of Alcohol and Drug Abuse Patient Records regulations: The Federal rules restrict any use of the information to criminally investigate or prosecute any alcohol or drug abuse patient.[facility]woodsIn the event this information is protected by the Federal Confidentiality of Alcohol and Drug Abuse Patient Records regulations: The Federal rules restrict any use of the information to criminally investigate or prosecute any alcohol or drug abuse patient.[facility]woodsIn the event this information is protected by the Federal Confidentiality of Alcohol and Drug Abuse Patient Records regulations: The Federal rules restrict any use of the information to criminally investigate or prosecute any alcohol or drug abuse patient.[facility]woodsIn the event this information is protected by the Federal Confidentiality of Alcohol and Drug Abuse Patient Records regulations: The Federal rules restrict any use of the information to criminally investigate or prosecute any alcohol or drug abuse patient.[facility]woodsIn the event this information is protected by the Federal Confidentiality of Alcohol and Drug Abuse Patient Records regulations: The Federal rules restrict any use of the information to criminally investigate or prosecute any alcohol or drug abuse patient.[facility]woodsIn the event this information is protected by the Federal Confidentiality of Alcohol and Drug Abuse Patient Records regulations: The Federal rules restrict any use of the information to criminally investigate or prosecute any alcohol or drug abuse patient.[facility]woodsIn the event this information is protected by the Federal Confidentiality of Alcohol and Drug Abuse Patient Records regulations: The Federal rules restrict any use of the information to criminally investigate or prosecute any alcohol or drug abuse patient.[facility]woodsIn the event this information is protected by the Federal Confidentiality of Alcohol and Drug Abuse Patient Records regulations: The Federal rules restrict any use of the information to criminally investigate or prosecute any alcohol or drug abuse patient.[facility]woodsIn the event this information is protected by the Federal Confidentiality of Alcohol and Drug Abuse Patient Records regulations: The Federal rules restrict any use of the information to criminally investigate or prosecute any alcohol or drug abuse patient.[facility]woodsIn the event this information is protected by the Federal Confidentiality of Alcohol and Drug Abuse Patient Records regulations: The Federal rules restrict any use of the information to criminally investigate or prosecute any alcohol or drug abuse patient.[facility]woodsIn the event this information is protected by the Federal Confidentiality of Alcohol and Drug Abuse Patient Records regulations: The Federal rules restrict any use of the information to criminally investigate or prosecute any alcohol or drug abuse patient.[facility]woodsIn the event this information is protected by the Federal Confidentiality of Alcohol and Drug Abuse Patient Records regulations: The Federal rules restrict any use of the information to criminally investigate or prosecute any alcohol or drug abuse patient.[facility]woodsIn the event this information is protected by the Federal Confidentiality of Alcohol and Drug Abuse Patient Records regulations: The Federal rules restrict any use of the information to criminally investigate or prosecute any alcohol or drug abuse patient.[facility]woodsIn the event this information is protected by the Federal Confidentiality of Alcohol and Drug Abuse Patient Records regulations: The Federal rules restrict any use of the information to criminally investigate or prosecute any alcohol or drug abuse patient.[facility]woodsIn the event this information is protected by the Federal Confidentiality of Alcohol and Drug Abuse Patient Records regulations: The Federal rules restrict any use of the information to criminally investigate or prosecute any alcohol or drug abuse patient.[facility]woodsIn the event this information is protected by the Federal Confidentiality of Alcohol and Drug Abuse Patient Records regulations: The Federal rules restrict any use of the information to criminally investigate or prosecute any alcohol or drug abuse patient.[facility]woodsIn the event this information is protected by the Federal Confidentiality of Alcohol and Drug Abuse Patient Records regulations: The Federal rules restrict any use of the information to criminally investigate or prosecute any alcohol or drug abuse patient.[facility]woodsIn the event this information is protected by the Federal Confidentiality of Alcohol and Drug Abuse Patient Records regulations: The Federal rules restrict any use of the information to criminally investigate or prosecute any alcohol or drug abuse patient.[facility]woodsIn the event this information is protected by the Federal Confidentiality of Alcohol and Drug Abuse Patient Records regulations: The Federal rules restrict any use of the information to criminally investigate or prosecute any alcohol or drug abuse patient.[facility]woodsIn the event this information is protected by the Federal Confidentiality of Alcohol and Drug Abuse Patient Records regulations: The Federal rules restrict any use of the information to criminally investigate or prosecute any alcohol or drug abuse patient.[facility]woodsIn the event this information is protected by the Federal Confidentiality of Alcohol and Drug Abuse Patient Records regulations: The Federal rules restrict any use of the information to criminally investigate or prosecute any alcohol or drug abuse patient.[facility]woodsIn the event this information is protected by the Federal Confidentiality of Alcohol and Drug Abuse Patient Records regulations: The Federal rules restrict any use of the information to criminally investigate or prosecute any alcohol or drug abuse patient.[facility]woodsIn the event this information is protected by the Federal Confidentiality of Alcohol and Drug Abuse Patient Records regulations: The Federal rules restrict any use of the information to criminally investigate or prosecute any alcohol or drug abuse patient.[facility]woodsIn the event this information is protected by the Federal Confidentiality of Alcohol and Drug Abuse Patient Records regulations: The Federal rules restrict any use of the information to criminally investigate or prosecute any alcohol or drug abuse patient.[facility]woodsIn the event this information is protected by the Federal Confidentiality of Alcohol and Drug Abuse Patient Records regulations: The Federal rules restrict any use of the information to criminally investigate or prosecute any alcohol or drug abuse patient.[facility]woodsIn the event this information is protected by the Federal Confidentiality of Alcohol and Drug Abuse Patient Records regulations: The Federal rules restrict any use of the information to criminally investigate or prosecute any alcohol or drug abuse patient.[facility]woodsIn the event this information is protected by the Federal Confidentiality of Alcohol and Drug Abuse Patient Records regulations: The Federal rules restrict any use of the information to criminally investigate or prosecute any alcohol or drug abuse patient.[facility]woodsIn the event this information is protected by the Federal Confidentiality of Alcohol and Drug Abuse Patient Records regulations: The Federal rules restrict any use of the information to criminally investigate or prosecute any alcohol or drug abuse patient.[facility]woodsIn the event this information is protected by the Federal Confidentiality of Alcohol and Drug Abuse Patient Records regulations: The Federal rules restrict any use of the information to criminally investigate or prosecute any alcohol or drug abuse patient.[facility]woodsIn the event this information is protected by the Federal Confidentiality of Alcohol and Drug Abuse Patient Records regulations: The Federal rules restrict any use of the information to criminally investigate or prosecute any alcohol or drug abuse patient.[facility] Reason for Visit (unrecogniz ed section and content) Reason Comments PT Discharge Physical Therapy Specialty Diagnoses / Procedures Referred By Viraj banegas Referred To Contact [facility] Diagnoses Chronic midline low back pain without sciatica Procedures CONSULT TO PHYSICAL THERAPY PHYSICAL THERAPY EVALUATION HIGH COMPLEX 45 MINS Rishi Vasquez, DO [address] [place] [address] [facility] [place] [address] [place] [address] Referral ID Status Reason Start Date Expiration Date Visits Requested Visits Authorized [id number] Authorized Auto-Generat ed Referral 11/19/2023 11/18/2024 99 99 Reason Comments Physical Therapy Reason Comments Radiology US Specialty Diagnoses / Procedures Referred By Viraj banegas Referred To Contact [facility] Diagnoses Abnormal thyroid function test Procedures US THYROID/PARATHYROID US SOFT TISSUE HEAD & NECK REAL TIME IMGE DOCM Rishi Vasquez, DO [address] [place] [address] Us Imaging [id number] Referral ID Status Reason Start Date Expiration Date V isits Requested Visits Authorized [id number] Closed Auto-Generate d Referral 12/15/2022 01/14/2024 1 [...] Release Of Medical Records Reason Comments Appointment Hans VYAS Reason Onset Date Comments Refill Request 05/27/2023 Reason Comments Results Specialty Diagnoses / Procedures Referred By Contac t Referred To Contact [facility] Diagnoses Abnormal mammogram Procedures US BREAST LTD RIGHT US BREAST UNI REAL TIME WITH IMAGE LIMITED Danyelle Tripp PA-C [address] [place] [address] [facility] [address] [place] [address] Referral ID Status Reason Start Date Expiration Date V isits Requested Visits Authorized [id number] Closed Auto-Generate d Referral 05/29/2023 06/27/2024 1 1 Reason Comments Radiology NM Specialty Diagnoses / Procedures Referred By Contac t Referred To Contact [facility] Diagnoses Abnormal thyroid function test Procedures NM THY UPTAKE AND SCAN THYROID UPTAKE W/BLOOD FLOW SNGLE/MULT JAMARI NATALIA Rishi Vasquez L, DO [address] [place] [address] [facility] [address] [place] [address] Referral ID Status Reason Start Date Expiration Date V isits Requested Visits Authorized [id number] Closed Auto-Generate d Referral 12/15/2022 01/14/2024 1 1 Reason Onset Date Comments Refill Request 10/03/2023 Reason Comments Radiology US Specialty Diagnoses / Procedures Referred By Contac t Referred To Contact [facility] Diagnoses Multiple thyroid nodules Procedures US THYROID/PARATHYROID US SOFT TISSUE HEAD & NECK REAL TIME IMGE DOCM Rishi Vasquez L, DO [address] [place] [address] [place] [address] Referral ID Status Reason Start Date Expiration Date V isits Requested Visits Authorized [id number] Closed Auto-Generate d Referral 12/05/2023 01/03/2025 1 1 Reason Comments PT Eval Reason Onset Date Comments Refill Request 01/28/2024 Reason Comments Patient Update Reason Comments Results Reason Onset Date Comments Refill Request 03/22/2024 Reason Comments Orders Reason Comments Patient Update Reason Comments Patient Question Fish oil - [place] 3 Reason Comments Patient Question Reason Onset Date Comments Refill Request 12/25/2024 Reason Comments HH Nursing POC Reason Comments [facility] HH PT POC Reason Comments ER F/U [facility] ED -03/20 Multiple falls, gangrene SADIE feet Reason Comments Assisted Plan of Care Reason Comments diabetic f/up Reason Comments Diabetes Reason Comments Medication Problem Care Teams (unrecognized sec tion and content) Reverberatory Furnace Operator Relationship Specialty Start Date End Date Rishi Vasquez, DO [address] [facility] [place] [address] PCP - General Family Practice 03/26/13 Reverberatory Furnace Operator Relationship Specialty Start Date End Date Rishi Vasquez, DO [address] [facility] [place] [address] PCP - General Family Practice 03/26/13 Reverberatory Furnace Operator Relationship Specialty Start Date End Date Rishi Vasquze, DO [address] [place] [address] PCP - General Family Practice 03/26/13 Reverberatory Furnace Operator Relationship Specialty Start Date End Date Rishi Vasquez, DO [address] [place] [address] PCP - General Family Practice 03/26/13 Reverberatory Furnace Operator Relationship Specialty Start Date End Date Rishi Vasquez, DO [address] [facility] [place] [address] PCP - General Family Practice 03/26/13 Reverberatory Furnace Operator Relationship Specialty Start Date End Date Rishi Vasquez, DO [address] [place] [address] PCP - General Family Practice 03/26/13 Reverberatory Furnace Operator Relationship Specialty Start Date End Date Rishi Vasquez, DO [address] [place] [address] PCP - General Family Practice 03/26/13 Reverberatory Furnace Operator Relationship Specialty Start Date End Date Rishi Vasquez, DO [address] [place] [address] PCP - General Family Practice 03/26/13 Reverberatory Furnace Operator Relationship Specialty Start Date End Date Rishi Vasquez, DO [address] [place] [address] PCP - General Family Practice 03/26/13 Reverberatory Furnace Operator Relationship Specialty Start Date End Date Rishi Vasquez, DO [address] [place] [address] PCP - General Family Practice 03/26/13 Reverberatory Furnace Operator Relationship Specialty Start Date End Date Rishi Vasquez, DO [address] [place] [address] PCP - General Family Practice 03/26/13 Reverberatory Furnace Operator Relationship Specialty Start Date End Date Rishi Vasquez, DO [address] [place] [address] PCP - General Family Medicine 03/26/13 Reverberatory Furnace Operator Relationship Specialty Start Date End Date Rishi Vasquez, DO [address] [place] [address] PCP - General Family Medicine 03/26/13 Reverberatory Furnace Operator Relationship Specialty Start Date End Date Rishi Vasquez, DO [address] [place] [address] PCP - General Family Medicine 03/26/13 Reverberatory Furnace Operator Relationship Specialty Start Date End Date Rishi Vasquez, DO [address] [place] [address] PCP - General Family Medicine 03/26/13 Reverberatory Furnace Operator Relationship Specialty Start Date End Date Rishi Vasquez, DO [address] [place] [address] PCP - General Family Medicine 03/26/13 Reverberatory Furnace Operator Relationship Specialty Start Date End Date Rishi Vasquez DO [address] [place] [address] PCP - General Family Medicine 03/26/13 Team [...] Primary Care Provider, Attend ing Provider Active Reverberatory Furnace Operator Relationship Specialty Start Date End Date Rishi Vasquez DO [address] [place] [address] PCP - General Family Medicine 03/26/13 Reverberatory Furnace Operator Relationship Specialty Start Date End Date Rishi Vasquez DO [address] [place] [address] PCP - General Family Medicine 03/26/13 Reverberatory Furnace Operator Relationship Specialty Start Date End Date Rishi Vasquez DO [address] [place] [address] PCP - General Family Medicine 03/26/13 Team Status: Inactive Member Role Status Dates Dr. Rishi Vasquez DO Primary Care Provider, Referr ing Provider Active Rick Bergeron TOP DISTRIBUTION EXECUTIVE, TOP DISTRIBUTION EXECUTIVE-C Attending Provider Active Reverberatory Furnace Operator Relationship Specialty Start Date End Date Rishi Vasquez DO [address] [place] [address] PCP - General Family Medicine 03/26/13 Reverberatory Furnace Operator Relationship Specialty Start Date End Date Rishi Vasquez DO [address] [place] [address] PCP - General Family Medicine 03/26/13 Reverberatory Furnace Operator Relationship Specialty Start Date End Date Rishi Vasquez DO [address] [place] [address] PCP - General Family Medicine 03/26/13 Reverberatory Furnace Operator Relationship Specialty Start Date End Date Rishi Vasquez DO [address] [place] [address] PCP - General Family Medicine 03/26/13 Team [...] Moscoso MD Attending Provider, Referring Provider Active Reverberatory Furnace Operator Relationship Specialty Start Date End Date Rishi Vasquez DO [address] [place] [address] PCP - General Family Medicine 03/26/13 Team Status: Inactive Member Role Status Dates Dr. Rishi Vasquez DO Primary Care Provider, Referr ing Provider Active Dr. Kwaku Moscoso MD Attending Provider Active Reverberatory Furnace Operator Relationship Specialty Start Date End Date Rishi Vasquez DO [address] [place] [address] PCP - General Family Medicine 03/26/13 Team Status: Inactive Member Role Status Dates Dr. Rishi Vasquez DO Primary Care Provider Active Dr. Brandon Membreno , DPM Attending Provider, Referring Provider Active Reverberatory Furnace Operator Relationship Specialty Start Date End Date Rishi Vasquez DO [address] [place] [address] PCP - General Family Medicine 03/26/13 Reverberatory Furnace Operator Relationship Specialty Start Date End Date Rishi Vasquez DO [address] [place] [address] PCP - General Family Medicine 03/26/13 Reverberatory Furnace Operator Relationship Specialty Start Date End Date Rishi Vasquez DO [address] [place] [address] PCP - General Family Medicine 03/26/13 Reverberatory Furnace Operator Relationship Specialty Start Date End Date Rishi Vasquez DO [address] [place] [address] PCP - General Family Medicine 03/26/13 Reverberatory Furnace Operator Relationship Specialty Start Date End Date Rishi Vasquez DO [address] [place] [address] PCP - General Family Medicine 03/26/13 Reverberatory Furnace Operator Relationship Specialty Start Date End Date Rishi Vasquez DO [address] [place] [address] PCP - General Family Medicine 03/26/13 Reverberatory Furnace Operator Relationship Specialty Start Date End Date Rishi Vasquez DO [address] [facility] [place] [address] PCP - General Family Medicine 03/26/13 Reverberatory Furnace Operator Relationship Specialty Start Date End Date Rishi Vasquez DO [address] [place] [address] PCP - General Family Medicine 03/26/13 Reverberatory Furnace Operator Relationship Specialty Start Date End Date Rishi Vasquez DO [address] [place] [address] PCP - General Family Medicine 03/26/13 Team Status: Inactive Member Role Status Dates Dr. Rishi Vasquez DO Primary Care Provider, Referr ing Provider Active Dr. Ciaran Jacobo MD Attending Provider Active Reverberatory Furnace Operator Relationship Specialty Start Date End Date Rishi Vasquez DO [address] [place] [address] PCP - General Family Medicine 03/26/13 Reverberatory Furnace Operator Relationship Specialty Start Date End Date Rishi Vasquez DO [address] [place] [address] PCP - General Family Medicine 03/26/13 Reverberatory Furnace Operator Relationship Specialty Start Date End Date Rishi Vasquez DO [address] [place] [address] PCP - General Family Medicine 03/26/13 Team Status: Active Member Role Status Dates Dr. Rishi Vasquez DO Primary Care Provider Active Dr. Elyssa Fierro MD Attending Provider Activ e Team Status: Inactive Member Role Status Dates Dr. Rishi Vasquez DO Primary Care Provider Active Dr. Ciaran Jacobo MD Attending Provider, Referring Provider Active Reverberatory Furnace Operator Relationship Specialty Start Date End Date Rishi Vasquez DO [address] [place] [address] PCP - General Family Medicine 03/26/13 Reverberatory Furnace Operator Relationship Specialty Start Date End Date Rishi Vasquez DO [address] [place] [address] PCP - General Family Medicine 03/26/13 Reverberatory Furnace Operator Relationship Specialty Start Date End Date Rishi Vasquez DO [address] [place] [address] PCP - General Family Medicine 03/26/13 Reverberatory Furnace Operator Relationship Specialty Start Date End Date Rishi Vasquez DO [address] [place] [address] PCP - General Family Medicine 03/26/13 Reverberatory Furnace Operator Relationship Specialty Start Date End Date Rishi Vasquez DO [address] [place] [address] PCP - General Family Medicine 03/26/13 Reverberatory Furnace Operator Relationship Specialty Start Date End Date Rishi Vasquez DO [address] [place] [address] PCP - General Family Medicine 03/26/13 Reverberatory Furnace Operator Relationship Specialty Start Date End Date Rishi Vasquez DO [address] [place] [address] PCP - General Family Medicine 03/26/13 Reverberatory Furnace Operator Relationship Specialty Start Date End Date Rishi Vasquez DO [address] [place] [address] PCP - General Family Medicine 03/26/13 Reverberatory Furnace Operator Relationship Specialty Start Date End Date Rishi Vasquez DO [address] [place] [address] PCP - General Family Medicine 03/26/13 Reverberatory Furnace Operator Relationship Specialty Start Date End Date Rishi Vasquez DO [address] [place] [address] PCP - General Family Medicine 03/26/13 Reverberatory Furnace Operator Relationship Specialty Start Date End Date Rishi Vasquez DO [address] [place] [address] PCP - General Family Medicine 03/26/13 Reverberatory Furnace Operator Relationship Specialty Start Date End Date Rishi Vasquez DO [address] [place] [address] PCP - General Family Medicine 03/26/13 Clary Andres, TAY.FLAKE CUTTER OPERATOR [address] [place] [address] Assistant Professor Of Criminal Justice Family Medicine 10/26/24 Dillon Watts, 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.FLAKE CUTTER OPERATOR [address] [place] [address] Assistant Professor Of Criminal Justice Family Medicine 10/26/24 Reverberatory Furnace Operator Relationship Specialty Start Date End Date Rishi Vasquez DO [address] [place] [address] PCP - General Family Medicine 03/26/13 Clary Andres, 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.FLAKE CUTTER OPERATOR [address] [place] [address] Assistant Professor Of Criminal Justice Family Medicine 10/26/24 Dillon Watts, 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.FLAKE CUTTER OPERATOR [address] [place] [address] Assistant Professor Of Criminal Justice Family Medicine 10/26/24 Team Status: Active Member [...] Referring Provider Active Start: March 07, 2025 Reverberatory Furnace Operator Relationship Specialty Start Date End Date Rishi Vasquez DO [address] [place] [address] PCP - General Family [facility] 03/26/13 [facility], 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.FLAKE CUTTER OPERATOR [address] [place] [address] [facility] 10/26/24 Reverberatory Furnace Operator Relationship Specialty Start Date End Date Rishi Vasquez DO [address] [place] [address] PCP - General [facility] 03/26/13 [facility], 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.FLAKE CUTTER OPERATOR [address] [place] [address] Assistant [facility] 10/26/24 Reverberatory Furnace Operator Relationship Specialty Start Date End Date Rishi Vasquez DO [address] [place] [address] PCP - [facility] 03/26/13 [facility], 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.FLAKE CUTTER OPERATOR [address] [place] [address] Assistant [facility] 10/26/24 Team Status: Inactive Member Role Status [...] Active Start : March 09, 2025 Dr. Brodeirck Dempsey MD Attending Provider Active Start: March 09, 2025 Team Status: Active Member Role Status Dates Dr. Rishi Vasquez , Primary Care Provider Active Start: March 09, [...] Active Start: March 10, 2025 Dr. Esteban Le , DO Emergency Provider Active Start : March [...] Gilmore Other Provider Active Start: A pri2024 End: March 20, 2025 Team Status: Active [...] LILLIAM Gilmore Other Provider Active Start: A 2024 Team Status: Active Member Role Status [...] April 15, 2025 End: April 15, 2025 Reverberatory Furnace Operator Relationship Specialty Start Date End Date Rishi Vasquez DO [address] [place] [address] PCP - General Family Medicine 03/26/13 [facility], 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.FLAKE CUTTER OPERATOR [address] [place] [address] Assistant Professor Of Criminal Justice [facility] 10/26/24 Reverberatory Furnace Operator Relationship Specialty Start Date End Date Rishi Vasquez DO [address] [place] [address] PCP - General [facility] Medicine 03/26/13 [facility], 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.FLAKE CUTTER OPERATOR [address] [facility], [place] [address] [facility] 10/26/24 Team Status: Inactive Member Role Status [...] Referring Provider Active Start: April 21, 2025 Reverberatory Furnace Operator Relationship Specialty Start Date End Date Rishi Vasquez DO [address] [facility], [place] [address] PCP - General Family Medicine 03/26/13 Dillon Watts, 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.FLAKE CUTTER OPERATOR [address] [facility], [place] [address] Assistant Professor Of Criminal Justice Family Medicine 10/26/24 Team Status: Active Member [...] April 27, 2025 End: April 27, 2025 Reverberatory Furnace Operator Relationship Specialty Start Date End Date Rishi Vasquez DO [address] [facility], [place] [id number] PCP - General Family Medicine 03/26/13 [facility] 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.FLAKE CUTTER OPERATOR [address] [place], [place] [address] [facility] 10/26/24 Team Status: Active Member Role Status [...] 2025 End: May 07, 2025 Rick Bergeron TOP DISTRIBUTION EXECUTIVE, TOP DISTRIBUTION EXECUTIVE-C Attending Provider Active S tart: May 07, 2025 End: May 07, 2025 Reverberatory Furnace Operator Relationship Specialty Start Date End Date Rishi Vasquez DO [address] [place] [address] PCP - [facility] 03/26/13 [facility], 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.FLAKE CUTTER OPERATOR [address] [place], [place] [address] [facility] 10/26/24 Fouzia Escobedo, 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.FLAKE CUTTER OPERATOR [address] [place], [place] [address] [facility] 05/04/25 Team Status: Inactive Member Role Status [...] section and content) DATE CREATED AUTHOR 05/12/2025 [facility] DATE CREATED AUTHOR 'S ORGANIZ ATION 05/17/2025 [facility] FOR RECORDS PERTAINING TO PATIENTS WHO [...] BE BASED ON THE PRIMARY CLINICAL RECORDS. [facility] [employer] [facility]. provides no warranty or guarantee of the accuracy or completeness of information in this document.
--- OUTSIDE RECORDS SUMMARY | 2025-05-18 02:26 | XMS RPT_ITS | CCD ---
Author Organization [facility] Care Team Providers Care Blueprint Duplicator Name Role Phone Ray Ochoa Unavailable Unavailable Lila PENNINGTON, Aileen Peterson Unavailable Unavailable Ray Ochoa Unavailable Unavailable Kwaku Moscoso MD Unavailable Sukumar LUNDBERG, Marly Villavicencio Unavailable Lucía BARAJAS, Rebekah Villavicencio Unavailable Gaye Jasmine Unavailable Unavailable Shaina Serna LPN Unavailable Unavailable Dr. Rishi Vasquez Primary Care Provider Dr. Rishi Vasquez Referring Provider Dr. Kwaku Moscoso Attending Provider Dr. Kwaku Moscoso Other Provider Roof CUSTOM TAILOR APPRENTICE, YULY Tripathi Attending Provider Rishi Vasquez DO Primary Care Provider Dr. Rishi Vasquez Primary Care Provider Dr. Kwaku Moscoso Attending Provider Dr. Kwaku Moscoso Referring Provider Dr. Rishi Vasquez Referring Provider Rishi Vasquez DO Primary Care Provider Rubio CUSTOM TAILOR APPRENTICE, YULY Tripathi Attending Provider Dr. Rishi Vasquez Primary Care Provider Dr. Kwaku Moscoso Attending Provider Dr. Kwaku Moscoso Referring Provider Dr. Rishi Vasquez Referring Provider Roof CUSTOM TAILOR APPRENTICE, CUSTOM TAILOR APPRENTICE-C Rcik Tripathi Attending Provider Dr. Rishi Vasquez Primary [...] Provider Dr. Rishi Vasquez Referring Provider Roof CUSTOM TAILOR APPRENTICE, CUSTOM TAILOR APPRENTICE-Andrés Tripathi Attending Provider Dr. Kwaku Moscoso Attending [...] Provider Dr. Elyssa Fierro Attending Provider Dmitry CUPOLA MECHANIC.MARKETING RECRUITER, Clary Hargrove Unavailable Violeta CUPOLA MECHANIC.MARKETING RECRUITER, Dillon Unavailable Vasquez DO, Dr. Blackwell Primary Care Provider Vasquez DO, Dr. Blackwell Attending Provider Vasquez DO, Dr. Blackwell Referring Provider [place] DPM, Dr. Taylor Attending Provider Haseeb DPM, [...] Provider Urbano LUNDBERG, Dr. Wells Referring Provider 1([facility])[phone] Pedro EUCEDA, Dr. Blackwell Primary Care Provider Pedro DO, Dr. Blackwell Attending Provider Pedro DO, Dr. Blackwell Referring Provider Haseeb DPM, Dr. Taylor Attending Provider Haseeb DPM, Dr. Taylor Referring Provider Pedro DO, Dr. Blackwell Primary Care Provider Vasquez DO, Dr. Blackwell Attending Provider 1([facility] )[phone] Pedro DO, Dr. Blackwell Referring Provider 1([facility] )[phone] Macarena VYAS, Abena Referring Provider 1([facility])[phone] Pedro EUCEDA, Dr. Blackwell Primary Care Provider [phone] Teto DPM, Dr. Sweeney Attending Provider Víctor LUNDBERG, Dr. Wagoner Attending Provider Víctor LUNDBERG, Dr. Wagoner Referring Provider Pedro EUCEDA, Dr. Blackwell Primary Care Provider [phone] Urbano LUNDBERG, Dr. Wells Attending Provider 1([facility])[phone] [facility] CUSTOM TAILOR APPRENTICE-Rick Bowen Attending Provider 1([facility])[phone] Chandra CUPOLA MECHANIC.MARKETING RECRUITER, Fouziatequila Reis Unavailable RISHI VASQUEZ L Primary [...] Urbano LUNDBERG, Dr. Wells Referring Provider [phone] Abena Baxter Referring Provider [phone] Víctor LUNDBERG, Dr. Wagoner Attending Provider Víctor LUNDBERG, Dr. Wagoner Referring Provider [facility] Rick EMERY Attending Provider Kb LUNDBERG, Dr. [...] Attending Unavailable Vasquez, Rishi Primary Care Unavailable Flint, Russell Attending Unavailable Flint, Russell Referring Unavailable Urbano, Russell Admitting Unavailable Vasquez, Rishi Primary Care Unavailable White, Maddie L Admitting Unavailable Irene, Patel Consulting Unavailable Broderick Dempsey Attending Unavailable White, Maddie L Referring Unavailable Tanphaichitr, Natthavat Consulting Unavaila ble Flint, Russell Consulting Unavailable White, Maddie L Consulting [...] Referring Unavailable Vasquez, Rishi Primary Care Unavailable Flint, Russell Attending Unavailable Flint, Russell Admitting Unavailable Vasquez, Rishi Primary Care [...] Consulting Unavailable Vasquez, Rishi Primary Care Unavailable Flint, Russell Attending Unavailable Flint, Russell Referring Unavailable Flint, Russell Consulting Unavailable Fiore, Abena Attending Unavailable Brandon Membreno Referring Unavailable Urbano, Russell Attending Unavailable Vasquez, Rishi Primary Care Unavailable Vasquez, Rishi Primary Care Unavailable Macarena, Abena Attending Unavailable Vasquez, Rishi Referring Unavailable Vasquez, Rishi Primary Care Unavailable Vasquez, Rishi Referring Unavailable Roof Rick BARAJAS Attending Unavailable Vasquez, Rishi Primary Care Unavailable Fiore, Abena Attending Unavailable Vasquez, Rsihi Referring Unavailable Vasquez, Rishi Primary Care Unavailable [...] source) Sulfonamides (Antibiotic) Drug Allergy 3 Unknown [facility] (10 sources) Sulfonamides (Antibiotic) drug allergy 4 [facility] Work Phone: (20 sources) Sulfonamides (Antibiotic); Translations: [SULFA (SULFONAMIDE ANTIBIOTICS)] Drug Allergy 3 Unknown [facility] (20 sources) Sulfonamides (Antibiotic) Allergy to substance 2 Unknown [facility] Comment on above: doesn't remember/ al florina noted as a child (1 source) Sulfonamides (Antibiotic) Drug allergy (disorder) 5 [facility] Repository Medications Current Medications Medication Drug Class(es) Dates Sig (Normalized) Sig (Original) 8 hr acetaminophen 650 mg extended release oral tablet (20 sources) Start: 05-08-2025 Start: 03-17-[address] [facility] every six hours as needed for pain [...] TYLENOL CAPS a s needed ACETAMINOPHEN CAPS [id number] Kwaku Moscoso MD Start: 09-22-2016 End: 11-22-2016 TYLENOL CAPS as needed 09/22 ACETAMINOPHEN CAPS [id number] Espinoza Hancockr MA Start: 09-22-2016 TYLENOL CAPS a s needed ACETAMINOPHEN CAPS [id number] Espinoza S Grant MA Start: 09-22-2016 End: 11-22-2016 TYLENOL CAPS as needed 09/22 ACETAMINOPHEN CAPS [id number] Espinoza S Grant MA Start: 09-22-2016 TYLENOL CAPS a s needed ACETAMINOPHEN CAPS [id number] Espinoza S Grant MA take 2 tablets by mo [facility] every six hours as needed acetaminophen [...] One tablet by mouth daily AMLODIPINE BESYLATE [id number] Ira Lopez PA-C Comment on above: Take [...] TABS One tablet by mouth daily ASPIRIN [id number] Carole Garber RN Start: 06-30-2013 take 1 [...] on above: Take 1 capsule by mo [facility] twice daily for 7 days. Cranberry [...] CRANBERRY CAPS Cranberry Extract daily CRANBERRY CAPS [id number] Brandon Ch MD Start: 11-25-2014 Cranberry Extr [...] tablet by mouth twice daily FERROUS SULFATE [id number] Kwaku Moscoso MD Comment on above: Take [...] th once daily TOPROL XL 50 MG [id number] (ER) One tablet by mouth daily METOPROLOL SUCCINATE [id number] Brandon Ch MD Start: 01-05-2014 take 1 tablet by paolo th once daily METOPROLOL SUCCINATE ER 25 MG [id number] One tablet by mouth daily METOPROLOL SUCCINATE [id number] Carole Garber RN Comment on above: Take 1 tablet by paolo once daily. Sxbgyajp-Rllj-Nrz-F olic Acid 18-0.4 mg tab (20 sources) Start: 03-02-2014 take 1 tablet by mouth once daily Lkmdyomb-Okuq-Pyx- Folic Acid 18-0.4 mg tab Take 1 tablet by mouth once daily. 03/02/2014 Active Start: 03-02-2014 take 1 tablet by paolo once daily Sumfhgai-Zehr-Hij-Folic Acid 18-0.4 mg t ab Take 1 [...] on above: Take 1 capsule by mo [facility] twice daily with meals for 7 [...] 1 capsule by mo uth once daily. [place]-3 Fatty Acids-Fish Oil (20 sources) Start: 06-29-2016 [place]-3 Fatty Acids-Fish Oil Active 1 EACH PO DAILY June 29, 2016 1:08pm Start: 06-29-2016 [place]-3 Fatty Acids-Fish Oil Active 1 EACH PO DAILY June 28, 2016 11:00pm Start: 06-29-2016 [place]-3 Fatty Acids-Fish Oil Active 1 EACH PO DAILY June 29, 2016 12:00am [place]-3 Fatty Acids-Fish Oil 1 EACH capsule (11 sources) Start: 06-29-2016 [place]-3 Fatty Acids-Fish Oil 1 EACH capsule Active [...] One tablet by mouth twice daily CALCIUM [id number] Kwaku Moscoso MD calcium ascorbate 500 mg [...] MG SOLR q 12 hrs CEFTAROLINE FOSAMIL [id number] Shaina Serna LPN ceftaroline fosamil 600 mg injection (20 sources) Start: 11-15-2016 End: 07-23-2018 End: 01-04-2017 TEFLARO 400 MG SOLR q 12 hrs CEFTAROLINE FOSAMIL [id number] Espinoza Burns MA cholecalciferol 0.05 mg oral capsule (20 sources) Vitamin D Start: 10-05-2020 End: 03-07-2025 Start: 05-20-2020 End: 03-07-2025 take 1 capsule by mouth once daily Cholecalciferol (Vitamin D3) 50 mcg (2,000 unit) capsule Discontinued 2000 U PO DAILY August 08, 2022 9:41am March 07, 2025 4:02pm take 1 capsule by mo [facility] once daily Cholecalciferol, Vitamin D3, 25 [...] One tablet by mouth daily CLOPIDOGREL BISULFATE [id number] Brandon Ch MD Comment on above: Take 75 mg by mouth once daily. clotrimazole 10 mg oral lozenge (20 sources) Azole Antifungal Start: 09-20-2016 End: 11-22-2016 CLOTRIMAZOLE 10 MG LOZG 1 tab 5 x a day CLOTRIMAZOLE [id number] Espinoza Burns MA DOCUSATE SODIUM CAPS (10 sources) Histamine-1 Receptor Antagonist, Nonsteroidal Anti-inflammatory Drug Start: 09-22-2016 STOOL SOFTENER CAPS twice daily DOCUSATE SODIUM CAPS [id number] Espinoza Burns MA Start: 09-22-2016 End: 11-22-2016 STOOL SOFTENER CAPS twice da nhi DOCUSATE SODIUM CAPS [id number] Espinoza Burns ALFONSO Start: 09-22-2016 STOOL SOFTENER CAPS twice daily DOCUSATE SODIUM CAPS [id number] Espinoza Burns ALFONSO Start: 09-22-2016 End: 11-22-2016 STOOL SOFTENER CAPS twice da nhi DOCUSATE SODIUM CAPS [id number] Espinoza Burns MA docusate sodium 100 mg [...] SOFTENER CAPS twice daily DOCUSATE SODIUM CAPS [id number] Espinoza Burns ALFONSO Start: 09-22-2016 STOOL SOFTENER CAPS twice daily DOCUSATE SODIUM CAPS [id number] Espinoza Burns MA doxycycline monohydrate 100 mg oral capsule (20 sources) Tetracycline-class Drug Start: 03-11-2025 End: 05-07-2025 Start: 01-02-2025 End: 03-11-2025 Start: 02-14-2017 End: 06-11-2017 take 1 tablet by mouth twice daily DOXYCYCLINE HYCLATE 100 MG CAPS One tablet by mouth twice daily DOXYCYCLINE HYCLATE [id number] Marly Patino MD estradiol 0.1 mg/ml vaginal [...] MG /GM CREA Take as directed ESTRADIOL [id number] Brandon Ch MD Start: 05-25-2015 ESTRACE 0.1 MG /GM CREA Take as directed ESTRADIOL [id number] Brandon Ch MD Comment on above: Use 1 g vaginally tw ice a week. Use 1 g vaginally tw o times a week. fish oil (5 sources) Start: 09-20-2016 take 1 tablet by mouth once daily OMEGA-3 FISH OIL 300 MG CAPS One tablet by mouth daily OMEGA-3 FATTY ACIDS [id number] Meka Jones Start: 09-20-2016 take 1 tablet by paolo th once daily OMEGA-3 FISH OIL 300 MG CAPS One tablet by mouth daily OMEGA-3 FATTY ACIDS 56304751350 Meka Jones gabapentin 600 mg oral table [...] TABS Two tablets by mouth daily HYDROCHLOROTHIAZIDE [id number] Carole Garber RN Comment on above: Take 1 tablet by paolo th once daily. 3 ml insulin lispro 100 unt/ml pen injector (8 sources) Insulin Analog Start: 5 End: 5 LACTOBACILLUS CAPS (2 sources) Start: 7 take 1 tablet by mouth once daily ACIDOPHILUS CAPS 600 mg. One tablet by mouth daily LACTOBACILLUS CAPS [id number] Kwaku Moscoso MD LACTOBACILLUS CAPS (20 sources) Start: 6 ACIDOPHILUS/PECTIN CAPS 1 tab every night LACTOBACILLUS CAPS [id number] Meka Jones Start: 09-20-2016 End: 11-22-2016 ACIDOPHILUS/PECTIN CAPS 1 ta b every night LACTOBACILLUS CAPS [id number] Espinoza Burns MA Start: 09-20-2016 End: 11-22-2016 ACIDOPHILUS/PECTIN CAPS 1 ta b every night LACTOBACILLUS CAPS [id number] Espinoza Burns MA Start: 09-20-2016 ACIDOPHILUS/PE CTIN CAPS 1 tab every night LACTOBACILLUS CAPS [id number] Meka Stallings Clementzrusty Start: 07-11-2016 End: 08-31-2016 Start: 07-11-2016 End: 08-31-2016 take 1 tablet by mouth twice daily Acidophilus-Pectin, [place] 1 EACH tablet Discontinued 1 NMA PO TWICE A DAY July 11, 2016 12:00am August 31, 2016 5:49pm Start: 07-11-2016 End: 08-31-2016 Acidophilus-Pectin, [place] D iscontinued 1 EACH PO TWICE A [...] tablet by mouth twice daily METFORMIN HCL [id number] Kwaku Moscoso MD Start: 01-05-2014 End: 07-29-2018 [...] mouth daily MULTIPLE VITAMIN Carole Garber RN Oyadgpgm-Jkfm-Whe-Folic Acid (CENTRUM COMPLETE) 18-0.4 mg tab (12 sources) Start: 03-02-2014 take 1 tablet by mouth once daily Hkpekpfh-Mako-Gcm-Folic Acid (CENTRUM COMPLETE) 18-0.4 mg tab Take 1 tablet by mouth once daily. 0 03/02/2014 Active Comment on above: Take 1 tablet by [facility] once daily. naproxen sodium 220 mg oral tablet (20 sources) Nonsteroidal Anti-inflammat ory Drug Start: 01-05-2014 End: 12-29-2014 ALEVE 220 MG TABS as needed NAPROXEN SODIUM [id number] Carole Garber RN nitroglycerin 0.4 mg sublingual tablet (10 sources) Nitrate Vasodilator Start: 01-05-2014 NITROSTAT 0.4 MG SUBL 1 tablet under tongue every 5 min up to 3 X NITROGLYCERIN [id number] Carole Garber RN OMEGA-3 FATTY ACIDS (5 sources) Start: 09-20-2016 take 1 tablet by mouth once daily OMEGA-3 FISH OIL 300 MG CAPS One tablet by mouth daily OMEGA-3 FATTY ACIDS [id number] Meka Jones polysaccharide iron complex 150 mg oral capsule (12 sources) Start: 09-20-2016 End: 08-30-2017 take 1 tablet by mouth once daily FERREX 150 150 MG CAPS One tablet by mouth daily POLYSACCHARIDE IRON COMPLEX [id number] Kwaku Moscoso MD Start: 09-20-2016 take 1 tablet by paolo once daily FERREX 150 150 MG CAPS One tablet by mouth daily POLYSACCHARIDE IRON COMPLEX [id number] Meka Jones pravastatin sodium 20 mg oral tablet (20 sources) HMG-CoA Reductase Inhibitor Start: 01-05-2014 End: 01-22-2015 take 1 tablet by mouth once daily PRAVASTATIN SODIUM 20 MG TABS One tablet by mouth daily PRAVASTATIN SODIUM 21289011510 Carole Garber RN senokot-s (2 sources) Start: 08-30-2017 take 1 tablet by mouth twice daily STOOL SOFTENER 100 MG TABS One tablet by mouth twice daily DOCUSATE SODIUM [id number] Kwaku Moscoso MD vancomycin 50 mg/ml injectable solution (20 sources) Glycopeptide Antibacterial Start: 09-20-2016 End: 11-22-2016 take 1000 mg intravenous route every twenty-four hours VANCOMYCIN HCL 1000 MG SOLR IV Q24 hours for 38 days VANCOMYCIN HCL [id number] Meka Jones Problems Active Problems Problem Classification [...] unspecified whether stage 3a or 3b CKD ([facility])] Onset: 7 Chronic ulcer of skin [...] disease (20 sources) Atherosclerotic heart disease of [place] coronary artery without angina pectoris; Translations: [Coronary [...] artery of lower limb; Translations: [Atherosclerosis of [place] arteries of extremities with gangrene, bilateral legs] [...] Onset: 3 12-29-2014 Chronic Comment on above: HAIR SAMPLE MATCHER-Right SFA and Po pliteal Artery 2013PTA-Left SFA [...] Absolute Lymph 0.52 X10 3/uL Low 0.83-4.51 [facility] Comment on above: Performed By: #### L 100.0100, L503.6005, L500.4050 ####[facility] [address] [place], [address] Absolute Neut 5.7 X10 3/uL Normal 2.0-7.7 [facility] Comment on above: Performed By: #### L 100.0100, L503.6005, L500.4050 ####[facility] [address] [place], [address] Basophils/100 WBC (Bld) 0.6 % Normal 0-1 [facility] Comment on above: Performed By: #### L 100.0100, L503.6005, L500.4050 ####[facility] [address] [place], [address] Eosinophils/100 WBC (Bld) 0.0 % Normal 0-5 [facility] Comment on above: Performed By: #### L 100.0100, L503.6005, L500.4050 ####[facility] [address] [place], [address] Erythrocyte distribution width (RBC) [Ratio] 15.3 % High 11.6-14.6 [facility] Comment on above: Performed By: #### L 100.0100, L503.6005, L500.4050 ####[facility] [address] [place], [address] Hematocrit (Bld) [Volume fraction] 27.7 % Low 37-47 [facility] Comment on above: Performed By: #### L 100.0100, L503.6005, L500.4050 ####[facility] [address] [place], [address] Hemoglobin (Bld) [Mass/Vol] 8.9 g/dL Low 12.0-15.0 [facility] Comment on above: Performed By: #### L 100.0100, L503.6005, L500.4050 ####[facility] [address] [place], [address] IG% 0.600 Normal 0.0-0.9 [facility] Comment on above: Result Comment: IG% - Immature Granulocytes (promyelocytes, myelocytes andmetamyelocytes) > 1% indicates that a LEFT SHIFT is Present. Performed By: #### L 100.0100, L503.6005, L500.4050 ####[facility] [address] [place], [address] Lymphocytes/100 WBC (Bld) 7.4 % Low 19-41 [facility] Comment on above: Performed By: #### L 100.0100, L503.6005, L500.4050 ####[facility] [address] [place], [address] MCH (RBC) [Entitic mass] 29.0 pg Normal 27.0-32.0 [facility] Comment on above: Performed By: #### L 100.0100, L503.6005, L500.4050 ####[facility] [address] [place], [address] MCHC (RBC) [Mass/Vol] 32.1 g/dL Normal 32-36 [facility] Comment on above: Performed By: #### L 100.0100, L503.6005, L500.4050 ####[facility] [address] [place], [address] MCV (RBC) [Entitic vol] 90.2 fL Normal 81-99 [facility] Comment on above: Performed By: #### L 100.0100, L503.6005, L500.4050 ####[facility] [address] [place], [address] Monocytes/100 WBC (Bld) 10.6 % High 0-10 [facility] Comment on above: Performed By: #### L 100.0100, L503.6005, L500.4050 ####[facility] [address] [place], [address] Neutrophils/100 WBC (Bld) 80.8 % High 47-70 [facility] Comment on above: Performed By: #### L 100.0100, L503.6005, L500.4050 ####[facility] [address] [place], [address] Nucleated RBC (Bld) [#/Vol] 0 10*3/uL Normal 0-5 [facility] Comment on above: Performed By: #### L 100.0100, L503.6005, L500.4050 ####[facility] [address] [place], [address] Platelet mean volume (Bld) [Entitic vol] 11.3 fL Normal 6.2-12.0 [facility] Comment on above: Performed By: #### L 100.0100, L503.6005, L500.4050 ####[facility] [address] [place], [address] Platelets (Bld) [#/Vol] 162 10*3/uL Normal 150-450 [facility] Comment on above: Performed By: #### L 100.0100, L503.6005, L500.4050 ####[facility] [address] [place], [address] RBC (Bld) [#/Vol] 3.07 10*6/uL Low 4.2-5.4 [facility] Comment on above: Performed By: #### L 100.0100, L503.6005, L500.4050 ####[facility] [address] [place], [address] RDW SD 50.8 fl High 35.1-43.9 [facility] Comment on above: Performed By: #### L 100.0100, L503.6005, L500.4050 ####[facility] [address] [place], [address] WBC (Bld) [#/Vol] 7.1 10*3/uL Normal 4.4-11.0 [facility] Comment on above: Performed By: #### L 100.0100, L503.6005, L500.4050 ####[facility] [address] [place], [address] CPK Total, Creatine Kinaseon 05-17-2025 CPK TOTAL 1177 U/L High 24-195 [facility] Comment on above: Performed By: #### L 501.3620 ####[facility] [address] [place], [address] Comprehensive Metabolic Prof ilon 05-17-2025 Albumin [Mass/Vol] 2.9 g/dL Low 3.4-4.8 [facility] Comment on above: Performed By: #### L 100.0100, L503.6005, L500.4050 ####[facility] [address] [place], [address] Albumin/Globulin [Mass ratio] 0.8 {ratio} Low 0.9-2.4 [facility] Comment on above: Performed By: #### L 100.0100, L503.6005, L500.4050 ####[facility] [address] [place], [address] ALK PHOS 54 U/L Normal 35-104 [facility] Comment on above: Performed By: #### L 100.0100, L503.6005, L500.4050 ####[facility] [address] [place], [address] ALT [Catalytic activity/Vol] 36 U/L High <=34 [facility] Comment on above: Performed By: #### L 100.0100, L503.6005, L500.4050 ####[facility] [address] [place], [address] AST [Catalytic activity/Vol] 83 U/L High <=31 [facility] Comment on above: Result Comment: Hemo lysis present, Results??could be affected.?? Performed By: #### L 100.0100, L503.6005, L500.4050 ####[facility] [address] [place], [address] Bilirubin [Mass/Vol] 0.45 mg/dL Normal 0.00-1.30 [facility] Comment on above: Performed By: #### L 100.0100, L503.6005, L500.4050 ####[facility] [address] [place], [address] BUN/CRE 39.9 RATIO High 10-20 [facility] Comment on above: Performed By: #### L 100.0100, L503.6005, L500.4050 ####[facility] [address] [place], [address] Calcium [Mass/Vol] 9.2 mg/dL Normal 7.6-11.0 [facility] Comment on above: Performed By: #### L 100.0100, L503.6005, L500.4050 ####[facility] [address] [place], [address] Chloride [Moles/Vol] 97 mmol/L Low 98-108 [facility] Comment on above: Performed By: #### L 100.0100, L503.6005, L500.4050 ####[facility] [address] [place], [address] CO2 [Moles/Vol] 17.5 mmol/L Low 21.0-32.0 [facility] Comment on above: Performed By: #### L 100.0100, L503.6005, L500.4050 ####[facility] [address] [place], [address] Creatinine [Mass/Vol] 1.96 mg/dL High 0.70-1.20 [facility] Comment on above: Performed By: #### L 100.0100, L503.6005, L500.4050 ####[facility] [address] [place], [address] ECRCL 26.13 ml/min Low 50-250 [facility] Comment on above: Performed By: #### L 100.0100, L503.6005, L500.4050 ####[facility] [address] [place], [address] GAP 16 High 5-15 [facility] Comment on above: Performed By: #### L 100.0100, L503.6005, L500.4050 ####[facility] [address] [place], [address] GFR/1.73 sq M.predicted among non-blacks MDRD (S/P/Bld) [Vol rate/Area] 27 mL/min/{1.73_m2} Low >60 [facility] Comment on above: Result Comment: mL/m in/1.73m2 CKD-EPI Creatinine Equation (2020) Performed By: #### L 100.0100, L503.6005, L500.4050 ####[facility] [address] [place], [address] Globulin (S) [Mass/Vol] 3.4 g/dL Normal 2.2-4.2 [facility] Comment on above: Performed By: #### L 100.0100, L503.6005, L500.4050 ####[facility] [address] [place], [address] Glucose [Mass/Vol] 253 mg/dL High 70-99 [facility] Comment on above: Performed By: #### L 100.0100, L503.6005, L500.4050 ####[facility] [address] [place], [address] Potassium [Moles/Vol] 4.7 mmol/L Normal 3.3-5.1 [facility] Comment on above: Result Comment: Hemo lysis present, Results??could be affected.?? Performed By: #### L 100.0100, L503.6005, L500.4050 ####[facility] [address] [place], [address] Sodium [Moles/Vol] 131 mmol/L Low 133-145 [facility] [facility] Comment on above: Performed By: #### L 100.0100, L503.6005, L500.4050 ####[facility] [address] [place], [address] T PROT 6.3 g/dL Normal 5.9-8.4 [facility] Comment on above: Performed By: #### L 100.0100, L503.6005, L500.4050 ####[facility] [address] [place], [address] Urea nitrogen [Mass/Vol] 78 mg/dL High 4-19 [facility] Comment on above: Performed By: #### L 100.0100, L503.6005, L500.4050 ####[facility] [address] [place], [address] Foot min 3 Viewson 5 Foot min 3 Views Normal [facility] Lactic Acidon 05-17-2025 Lactate [Moles/Vol] mmol/L Normal 0.0-2.0 [facility] Comment on above: Order Comment: Y Performed By: #### L 100.0100, L503.6005, L500.4050 ####[facility] [address] [place], [address] MR/BMS.BVSon 05-13-2025 MR/BMS.BVS Normal [facility] Cardiovascular stress test r eportOrdered By: Jarret Quiles on 05-11-2025 Study report [facility] [address] [address] MR#: [id number] Acct: [id number] Name: GELY NEWMAN Rep #: [id number] : 1950 75 From: Jarret Quiles MD [...] of 55%. This note was generated with [employer] dictation software. It may contain incorrectwords, spelling, and punctuation that were not noted in checking the note beforesigning. 05/11/25829 Date _ Jarret Quiles MD CC: Dr. Jarret Quiles MD; Dr. Rishi Vasquez, DO ~ Date Dictated: 05/11/25827 Date Transcribed: 05/11/25827 Signal Operator Technical: CARLO Signed [facility] Work Phone: Stress Reporton 05-11-2025 Stress Report Normal [facility] Basic Metabolic Profile (BMP )on 05-08-2025 BUN/CRE 40.4 RATIO High 09-07 [facility] Comment on above: Performed By: #### L 500.2500, L100.0500 ####[facility] [address] [place], [address] Calcium [Mass/Vol] 8.8 mg/dL Normal 7.6-11.0 [facility] Comment on above: Performed By: #### L 500.2500, L100.0500 ####[facility] [address] [place], [address] Chloride [Moles/Vol] 104 mmol/L Normal 98-108 [facility] Comment on above: Performed By: #### L 500.2500, L100.0500 ####[facility] [address] [place], [address] CO2 [Moles/Vol] 22.0 mmol/L Normal 21.0-32.0 [facility] Comment on above: Performed By: #### L 500.2500, L100.0500 ####[facility] [address] [place], [address] Creatinine [Mass/Vol] 0.93 mg/dL Normal 0.70-1.20 [facility] Comment on above: Performed By: #### L 500.2500, L100.0500 ####[facility] [address] [place], [address] GAP 12 Normal 5-15 [facility] Comment on above: Performed By: #### L 500.2500, L100.0500 ####[facility] [address] [place], [address] GFR/1.73 sq M.predicted among non-blacks MDRD (S/P/Bld) [Vol rate/Area] 65 mL/min/{1.73_m2} Normal >60 [facility] Comment on above: Result Comment: mL/m in/1.73m2 CKD-EPI Creatinine Equation (2020) Performed By: #### L 500.2500, L100.0500 ####[facility] [address] [place], [address] Glucose [Mass/Vol] 197 mg/dL High 70-99 [facility] Comment on above: Performed By: #### L 500.2500, L100.0500 ####[facility] [address] [place], [address] Potassium [Moles/Vol] 4.4 mmol/L Normal 3.3-5.1 [facility] Comment on above: Performed By: #### L 500.2500, L100.0500 ####[facility] [address] [place], [address] Sodium [Moles/Vol] 138 mmol/L Normal 133-145 [facility] Comment on above: Performed By: #### L 500.2500, L100.0500 ####[facility] [address] [place], [address] Urea nitrogen [Mass/Vol] 38 mg/dL High 4-19 [facility] Comment on above: Performed By: #### L 500.2500, L100.0500 ####[facility] [address] [place], [address] CBC-Complete Blood Cnt No Di ffon 05-08-2025 Erythrocyte distribution width (RBC) [Ratio] 14.9 % High 11.6-14.6 [facility] Comment on above: Performed By: #### L 500.2500, L100.0500 ####[facility] [address] [place], [address] Hematocrit (Bld) [Volume fraction] 32.0 % Low 37-47 [facility] Comment on above: Performed By: #### L 500.2500, L100.0500 ####[facility] [address] [place], [address] Hemoglobin (Bld) [Mass/Vol] 10.4 g/dL Low 12.0-15.0 [facility] Comment on above: Performed By: #### L 500.2500, L100.0500 ####[facility] [address] [place], [address] MCH (RBC) [Entitic mass] 29.6 pg Normal 27.0-32.0 [facility] Comment on above: Performed By: #### L 500.2500, L100.0500 ####[facility] [address] [place], [address] MCHC (RBC) [Mass/Vol] 32.5 g/dL Normal 32-36 [facility] Comment on above: Performed By: #### L 500.2500, L100.0500 ####[facility] [address] [place], [address] MCV (RBC) [Entitic vol] 91.2 fL Normal 81-99 [facility] Comment on above: Performed By: #### L 500.2500, L100.0500 ####[facility] [address] [place], [address] Platelet mean volume (Bld) [Entitic vol] 11.8 fL Normal 6.2-12.0 [facility] Comment on above: Performed By: #### L 500.2500, L100.0500 ####[facility] [address] [place], [address] Platelets (Bld) [#/Vol] 170 10*3/uL Normal 150-450 [facility] Comment on above: Performed By: #### L 500.2500, L100.0500 ####[facility] [address] [place], [address] RBC (Bld) [#/Vol] 3.51 10*6/uL Low 4.2-5.4 [facility] Comment on above: Performed By: #### L 500.2500, L100.0500 ####[facility] [address] [place], [address] RDW SD 50.3 fl High 35.1-43.9 [facility] Comment on above: Performed By: #### L 500.2500, L100.0500 ####[facility] [address] [place], [address] WBC (Bld) [#/Vol] 6.0 10*3/uL Normal 4.4-11.0 [facility] Comment on above: Performed By: #### L 500.2500, L100.0500 ####[facility] [address] [place], [address] MR/PAT.ANEon 05-08-2025 MR/PAT.ANE Normal [facility] Cardiology Visit Reporton Cardiology Visit Report Normal [facility]and[facility] GELY NEWMAN ([id number]) 1950 F Date Time Provider Department 05/06/25 RISHI VASQUEZPWS During your visit today, we recorded the following information about you: Sara Solis RN 05/06/2025 12:30 PM Signed Pt called in and reports she went in to [facility] and they told her that her insurance doesn't cover the Glipizide 5 mg tablets without a PA. Pt states she got them before and her insurance covered them. Pt states she paid out of pocket for 5 days worth of pills. Prior Authorization Documentation Prior authorization requested for the following medication: Medication: Glipizide Provider: Sushma Escobedo Insurance Company Name: [employer] Phone number:[phone] Patient ID number: [id number] Pharmacy Name: [facility] Telephone number: [phone] Any Rodriguez LPN 05/06/2025 1:17 PM Signed Electronic PA requested. Any Rodriguez LPN 05/06/2025 1:21 PM Signed This is the PA response. Close reason: Product not covered by this plan. Prior Authorization not available. Payer: [employer] [phone] Note from payer: This drug/product is not [...] times a day with meals. Authorizing Provider: RIHSI VASQUEZ DO Garrison, Jordan L, 05/11/2025 7:40 [...] 1 tablet by mouth once daily. - Reuaouuj-Ynqd-Zef-Folic Acid 18-0.4 mg tab Take 1 tablet [...] (more content not included)... Normal [facility] CNOVon 04-30-2025 CNOV Office Visit (FAMPWS ) -------- GELY NEWMAN ([id number]) 1950 F Date Time Provider Department 04/30/25 11:20 AM FOUZIA ESCOBEDO During your visit today, we recorded the following information about you: Pulse Respiration Blood pressure Weight 77/minute 12/minute 130/60 68.9 kg Fouzia Escobedo, TAY.MARKETING RECRUITER 04/30/2025 12:26 PM Signed HISTORY OF PRESENT [...] wound dressing changes - Recent visit to conduit reamer operator Dr. 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 Ortiz [facility]-03/25/2020 left mild, right moderate Multiple thyroid nodules last US 01/2015 Peripheral artery disease due to Diabetes mellitus, Dr. Kwaku Moscoso Rotator cuff syndrome of left shoulder Dr. Regi [facility] PAST SURGICAL HISTORY Procedure Laterality Date AMPUTATION [...] ROTATOR CUFF REPAIR 03/11/14 Dr. Regi Thompson [facility] SLCTV CATHJ EA 1ST ORD ABDL PEL/LXTR [...] (more content not included)... Normal [facility] Thyroidon 04-27-2025 Thyroid Normal [facility] Duplex ultrasound of carotid artery reportOrdered By: Russell Clement on 04-23-2025 Study report [facility] [address] [place] [address] Carotid Duplex Ultrasound 04/20/25 1337 MR#: [id number] Acct: [id number] Name: GELY NEWMAN Rep #:[id number] : 1950 75 From: Russell Abraham Attending [...] the left vertebral artery. Procedure Carotid Duplex 59481. This is a Carotid Duplex examination using [...] Dictated: 04/20/25 1337 Date Transcribed: 04/23/25 1037 Signal Operator Technical: Signed [facility] Work Phone: Carotid Duplex Ultrasoundon 04-20-2025 Carotid Duplex Ultrasound Normal [facility] CNPNon 04-16-2025 [facility] GELY NEWMAN ([id number]) 1950 F Date Time Provider Department 04/16/25 RISHI VASQUEZWS During your visit today, we recorded the following information about you: Hina Lomeli RN 04/16/2025 9:34 AM Signed Jessika calling from [facility] to report plan of care for patient and prison will continue visit patient 1 time a week for 5 weeks. group home will work with patient on wound care to bilateral lower extremities. Patient is being follow by Dr. Irene for wound care. No call back needed. Hina Lomeli RN Allergies As of Date: 04/16/2025 Noted Allergy Reaction SULFA (SULFONAMIDE ANTIBIOTICS) 01/13/2013 16 - Unknown Comments: childhood Date Reviewed: 03/27/2025 Reviewed by: Rachel Jacobs MA - Fully Assessed Reason for Visit: Group Home Plan of Care [Other] Prescriptions as of [...] 1 tablet by mouth once daily. - Bbfazuat-Smrl-Vox-Folic Acid 18-0.4 mg tab Take 1 tablet [...] [L72.3, L08.9] 02/26/2019 Coronary artery disease involving [place] heart *05/28/2019 Abnormal urine odor [R82.90] 05/28/2019 [...] HINA LOMELI on 04/16/25 Normal [facility] Anion gap in Serum or Plasma Ordered By: Russell Clement on 04-15-2025 Anion gap [Moles/Vol] 13 mmol/L - [facility] BUN/creatinine ratioOrdered By: Russell Clement on 04-15-2025 Urea nitrogen/Creatinine [Mass ratio] 33.4 mg/mg High [facility] Basic Metabolic Profile (BMP )on 04-15-2025 BUN/CRE 33.4 RATIO High [address] [place] [address] Comment on above: Performed By: #### L 500.2500, L100.0500 ####[facility] [address] [place], [address] Calcium [Mass/Vol] 9.3 mg/dL Normal 7.6-11.0 [facility] Comment on above: Performed By: #### L 500.2500, L100.0500 ####[facility] [address] [place], [address] Chloride [Moles/Vol] 106 mmol/L Normal 98-108 [facility] Comment on above: Performed By: #### L 500.2500, L100.0500 ####[facility] [address] [place], [address] CO2 [Moles/Vol] 21.9 mmol/L Normal 21.0-32.0 [facility] Comment on above: Performed By: #### L 500.2500, L100.0500 ####[facility] [address] [place], [address] Creatinine [Mass/Vol] 1.07 mg/dL Normal 0.70-1.20 [facility] Comment on above: Performed By: #### L 500.2500, L100.0500 ####[facility] [address] [place], [address] ECRCL 48.30 ml/min Low 50-250 [facility] Comment on above: Performed By: #### L 500.2500, L100.0500 ####[facility] [address] [place], [address] GAP 13 Normal 5-15 [facility] Comment on above: Performed By: #### L 500.2500, L100.0500 ####[facility] [address] [place], [address] GFR/1.73 sq M.predicted among non-blacks MDRD (S/P/Bld) [Vol rate/Area] 55 mL/min/{1.73_m2} Low >60 [facility] Comment on above: Result Comment: mL/m in/1.73m2 CKD-EPI Creatinine Equation (2020) Performed By: #### L 500.2500, L100.0500 ####[facility] [address] [place], [address] Glucose [Mass/Vol] 152 mg/dL High 70-99 [facility] Comment on above: Performed By: #### L 500.2500, L100.0500 ####[facility] [address] [place], [address] Potassium [Moles/Vol] 4.9 mmol/L Normal 3.3-5.1 [facility] Comment on above: Performed By: #### L 500.2500, L100.0500 ####[facility] [address] [place], [address] Sodium [Moles/Vol] 140 mmol/L Normal 133-145 [facility] Comment on above: Performed By: #### L 500.2500, L100.0500 ####[facility] [address] [place], [address] Urea nitrogen [Mass/Vol] 36 mg/dL High 4-19 [facility] Comment on above: Performed By: #### L 500.2500, L100.0500 ####[facility] [address] [place], [address] CBC-Complete Blood Cnt No Di ffon 04-15-2025 Erythrocyte distribution width (RBC) [Ratio] 15.8 % High 11.6-14.6 [facility] Comment on above: Performed By: #### L 500.2500, L100.0500 ####[facility] [address] [place], [address] Hematocrit (Bld) [Volume fraction] 38.4 % Normal 37-47 [facility] Comment on above: Performed By: #### L 500.2500, L100.0500 ####[facility] [address] [place], [address] Hemoglobin (Bld) [Mass/Vol] 12.2 g/dL Normal 12.0-15.0 [facility] Comment on above: Performed By: #### L 500.2500, L100.0500 ####[facility] [address] [place], [address] MCH (RBC) [Entitic mass] 29.5 pg Normal 27.0-32.0 [facility] Comment on above: Performed By: #### L 500.2500, L100.0500 ####[facility] [address] [place], [address] MCHC (RBC) [Mass/Vol] 31.8 g/dL Low 32-36 [facility] Comment on above: Performed By: #### L 500.2500, L100.0500 ####[facility] [address] [place], [address] MCV (RBC) [Entitic vol] 92.8 fL Normal 81-99 [facility] Comment on above: Performed By: #### L 500.2500, L100.0500 ####[facility] [address] [place], [address] Platelet mean volume (Bld) [Entitic vol] 11.4 fL Normal 6.2-12.0 [facility] Comment on above: Performed By: #### L 500.2500, L100.0500 ####[facility] [address] [place], [address] Platelets (Bld) [#/Vol] 205 10*3/uL Normal 150-450 [facility] Comment on above: Performed By: #### L 500.2500, L100.0500 ####[facility] [address] [place], [address] RBC (Bld) [#/Vol] 4.14 10*6/uL Low 4.2-5.4 [facility] Comment on above: Performed By: #### L 500.2500, L100.0500 ####[facility] [address] [place], [address] RDW SD 53.9 fl High 35.1-43.9 [facility] Comment on above: Performed By: #### L 500.2500, L100.0500 ####[facility] [address] [place], [address] WBC (Bld) [#/Vol] 7.7 10*3/uL Normal 4.4-11.0 [facility] Comment on above: Performed By: #### L 500.2500, L100.0500 ####[facility] [address] [place], [address] [facility] CNPN Telephone (FAMPWS) -------- GELY NEWMAN ([id number]) 1950 F Date Time Provider Department 04/15/25 FOUZIA ESCOBEDO [facility] During your visit today, we recorded the [...] 1 tablet by mouth once daily. - Dokxycra-Tukg-Wtx-Folic Acid 18-0.4 mg tab Take 1 tablet [...] [L72.3, L08.9] 02/26/2019 Coronary artery disease involving [place] heart *05/28/2019 Abnormal urine odor [R82.90] 05/28/2019 [...] FOUZIA ESCOBEDO on 04/15/25 Normal [facility] Carbon dioxide, total [Moles /volume] in Central venous bloodOrdered By: Russell Clement on 04-15-2025 CO2 [Moles/Vol] 21.9 mmol/L 21.0-32.0 [facility] Chloride assayOrdered By: Woo Clement on 04-15-2025 Chloride [Moles/Vol] 106 mmol/L 98-108 [facility] Erythrocyte distribution wid th ratioOrdered By: Russell Clement on 04-15-2025 Erythrocyte distribution width (RBC) [Ratio] 15.8 % High 11.6-14.6 [facility] Erythrocyte distribution wid th standard deviationOrdered By: Russell Clement on 04-15-2025 Erythrocyte distribution width (RBC) [Ratio] 53.9 fl High 35.1-43.9 [facility] Glomerular filtration rate ( GFR) estimation/1.73 sq m using serum, plasma, or whole bOrdered By: Russell Clement on 04-15-2025 GFR/1.73 sq M.predicted among non-blacks MDRD (S/P/Bld) [Vol rate/Area] 55 mL/min/{1.73_m2} Low >60 [facility] Comment on above: mL/min/1.73m2 CKD-EP I Creatinine Equation (2020) Hematocrit Auto (Bld) [Volum e fraction]Ordered By: Russell Clement on 04-15-2025 Hematocrit (Bld) [Volume fraction] 38.4 % 37-47 [facility] Hemoglobin measurementOrdere d By: Russell Clement on 04-15-2025 Hemoglobin (Bld) [Mass/Vol] 12.2 g/dL 12.0-15.0 [facility] MCV (mean corpuscular volume ) determinationOrdered By: Russell Clement on 04-15-2025 MCV (RBC) [Entitic vol] 92.8 fL 81-99 [facility] Mean corpuscular hemoglobin (MCH) determinationOrdered By: Russell Clement on 04-15-2025 MCH (RBC) [Entitic mass] 29.5 pg 27.0-32.0 [facility] Mean corpuscular hemoglobin concentration (MCHC) determinationOrdered By: Russell Clement on 04-15-2025 MCHC (RBC) [Mass/Vol] 31.8 g/dL Low 32-36 [facility] Mean platelet volume determi nationOrdered By: Russell Clement on 04-15-2025 Platelet mean volume (Bld) [Entitic vol] 11.4 fL 6.2-12.0 [facility] Operative Reporton Operative Report Normal [facility] Platelet countOrdered By: Woo Clement on 04-15-2025 Platelets (Bld) [#/Vol] 205 10*3/uL 150-450 [facility] Potassium measurement (mass/ volume)Ordered By: Russell Clement on 04-15-2025 Potassium (Unsp spec) [Mass/Vol] 4.9 mmol/L 3.3-5.1 [facility] RBC Auto (Bld) [#/Vol]Ordere d By: Russell Clement on 04-15-2025 RBC (Bld) [#/Vol] 4.14 10*6/uL Low 4.2-5.4 [facility] Serum creatinine measurement (mass/volume)Ordered By: Russell Clement on 04-15-2025 Creatinine [Mass/Vol] 1.07 mg/dL 0.70-1.20 [facility] Serum glucose measurement (m ass/volume)Ordered By: Russell Clement on 04-15-2025 Glucose [Mass/Vol] 152 mg/dL High 70-99 [facility] Serum or plasma calcium natalia urement (mass/volume)Ordered By: Russell Urbano on 04-15-2025 Calcium [Mass/Vol] 9.3 mg/dL 7.6-11.0 [facility] Serum or plasma urea nitroge n measurement (mass/volume)Ordered By: [facility] Urbano on 04-15-2025 Urea nitrogen [Mass/Vol] 36 mg/dL High 4-19 [facility] Sodium levelOrdered By: [facility] 04-[facility]-20[facility] Sodium [Moles/Vol] 140 mmol/L 133-145 [facility] White blood cell (WBC) count Ordered By: Russell Clement on 04-15-2025 WBC (Bld) [#/Vol] 7.7 10*3/uL 4.4-11.0 [facility] CNPNon 04-10-2025 [facility]N [facility] -------- GELY NEWMAN ([id number]) 1950 F Date Time Provider Department 04/10/25 [...] or 3b CKD (HCC) [N18.30] Order(s):HEMOGLOBIN A1C [FAACU3D] Order #: [id number] FUTURE COMPREHENSIVE METABOLIC PANEL [SQCMP] Order #: [id number] FUTURE glipiZIDE (GLUCOTROL XL) 5 mg 24 [...] 1 tablet by mouth once daily. - Leobriow-Mjlq-Xjt-Folic Acid 18-0.4 mg tab Take 1 tablet by mouth once daily. - omega-3 fatty acids 1,000 mg cap Take 1 capsule by mouth once daily. - Aspirin 81 mg Tab Take 1 tablet by mouth once daily. Take with food. Medication notes this encounter METFORMIN 500 MG TABLET >> Fouzia Escobedo APRN.MARKETING RECRUITER 04/10/2025 4:[address] solomon [...] [L72.3, L08.9] 02/26/2019 Coronary artery disease involving [place] heart *05/28/2019 Abnormal urine odor [R82.90] 05/28/2019 [...] (more content not included)... Normal [facility] Basic Metabolic Profile (BMP )on 04-09-2025 BUN Normal 4-19 [facility] Comment on above: Result Comment: Canc elled via OM: Order cancelled - Patient discharged Performed By: #### L 500.2500, L100.0100 ####[facility] [address] [place], [address] BUN/CRE Normal 10-20 [facility] Comment on above: Result Comment: Canc elled via OM: Order cancelled - Patient discharged Performed By: #### L 500.2500, L100.0100 ####[facility] [address] [place], [address] Calcium Normal 7.6-11.0 [facility] Comment on above: Result Comment: Canc elled via OM: Order cancelled - Patient discharged Performed By: #### L 500.2500, L100.0100 ####[facility] [address] [place], [address] CL Normal 98-108 [facility] Comment on above: Result Comment: Canc elled via OM: Order cancelled - Patient discharged Performed By: #### L 500.2500, L100.0100 ####[facility] [address] [place], [address] CO2 Normal 21.0-32.0 [facility] Comment on above: Result Comment: Canc elled via OM: Order cancelled - Patient discharged Performed By: #### L 500.2500, L100.0100 ####[facility] [address] [place], [address] CREAT,SERUM Normal 0.70-1.20 [facility] Comment on above: Result Comment: Canc elled via OM: Order cancelled - Patient discharged Performed By: #### L 500.2500, L100.0100 ####[facility] [address] [place], [address] eGFR Normal >60 [facility] Comment on above: Result Comment: Canc elled via OM: Order cancelled - Patient discharged Performed By: #### L 500.2500, L100.0100 ####[facility] [address] [place], [address] GAP Normal 5-15 [facility] Comment on above: Result Comment: Canc elled via OM: Order cancelled - Patient discharged Performed By: #### L 500.2500, L100.0100 ####[facility] [address] [place], [address] GLU Normal 70-99 [facility] Comment on above: Result Comment: Canc elled via OM: Order cancelled - Patient discharged Performed By: #### L 500.2500, L100.0100 ####[facility] [address] [place], [address] Potassium Normal 3.3-5.1 [facility] Comment on above: Result Comment: Canc elled via OM: Order cancelled - Patient discharged Performed By: #### L 500.2500, L100.0100 ####[facility] [address] [place], [address] Basic Metabolic Profile (BMP) Normal 133-145 [facility] Comment on above: Result Comment: Canc elled via OM: Order cancelled - Patient discharged Performed By: #### L 500.2500, L100.0100 ####[facility] [address] [place], [address] CBC W/Diff, Automatedon 05- Absolute Neut Normal 2.0-7.7 [facility] Comment on above: Result Comment: Canc elled via OM: Order cancelled - Patient discharged Performed By: #### L 500.2500, L100.0100 ####[facility] [address] [place], [address] HCT Normal 37-47 [facility] Comment on above: Result Comment: Canc elled via OM: Order cancelled - Patient discharged Performed By: #### L 500.2500, L100.0100 ####[facility] [address] [place], [address] HGB Normal 12.0-15.0 [facility] Comment on above: Result Comment: Canc elled via OM: Order cancelled - Patient discharged Performed By: #### L 500.2500, L100.0100 ####[facility] [address] [place], [address] MCH Normal 27.0-32.0 [facility] Comment on above: Result Comment: Canc elled via OM: Order cancelled - Patient discharged Performed By: #### L 500.2500, L100.0100 ####[facility] [address] [place], [address] MCHC Normal 32-36 [facility] Comment on above: Result Comment: Canc elled via OM: Order cancelled - Patient discharged Performed By: #### L 500.2500, L100.0100 ####[facility] [address] [place], [address] MCV Normal 81-99 [facility] Comment on above: Result Comment: Canc elled via OM: Order cancelled - Patient discharged Performed By: #### L 500.2500, L100.0100 ####[facility] [address] [place], [address] NEUT% Normal 47-70 [facility] Comment on above: Result Comment: Canc elled via OM: Order cancelled - Patient discharged Performed By: #### L 500.2500, L100.0100 ####[facility] [address] [place], [address] PLT Normal 150-450 [facility] Comment on above: Result Comment: Canc elled via OM: Order cancelled - Patient discharged Performed By: #### L 500.2500, L100.0100 ####[facility] [address] [place], [address] RBC Normal 4.2-5.4 [facility] Comment on above: Result Comment: Canc elled via OM: Order cancelled - Patient discharged Performed By: #### L 500.2500, L100.0100 ####[facility] [address] [place], [address] RDW CV Normal 11.6-14.6 [facility] Comment on above: Result Comment: Canc elled via OM: Order cancelled - Patient discharged Performed By: #### L 500.2500, L100.0100 ####[facility] [address] [place], [address] RDW SD Normal 35.1-43.9 [facility] Comment on above: Result Comment: Canc elled via OM: Order cancelled - Patient discharged Performed By: #### L 500.2500, L100.0100 ####[facility] [address] [place], [address] WBC Normal 4.4-11.0 [facility] Comment on above: Result Comment: Canc elled via OM: Order cancelled - Patient discharged Performed By: #### L 500.2500, L100.0100 ####[facility] [address] [place], [address] MR/BMS.BVSon 04-03-2025 MR/BMS.BVS Normal [facility] Basic Metabolic Profile (BMP )on 04-02-2025 BUN Normal 4-19 [facility] Comment on above: Result Comment: Canc elled via OM: Order cancelled - Patient discharged Performed By: #### L 500.2500, L100.0100 ####[facility] [address] [place], [address] BUN/CRE Normal 10-20 [facility] Comment on above: Result Comment: Canc elled via OM: Order cancelled - Patient discharged Performed By: #### L 500.2500, L100.0100 ####[facility] [address] [place], [address] Calcium Normal 7.6-11.0 [facility] Comment on above: Result Comment: Canc elled via OM: Order cancelled - Patient discharged Performed By: #### L 500.2500, L100.0100 ####[facility] [address] [place], [address] CL Normal 98-108 [facility] Comment on above: Result Comment: Canc elled via OM: Order cancelled - Patient discharged Performed By: #### L 500.2500, L100.0100 ####[facility] [address] [place], [address] CO2 Normal 21.0-32.0 [facility] Comment on above: Result Comment: Canc elled via OM: Order cancelled - Patient discharged Performed By: #### L 500.2500, L100.0100 ####[facility] [address] [place], [address] CREAT,SERUM Normal 0.70-1.20 [facility] Comment on above: Result Comment: Canc elled via OM: Order cancelled - Patient discharged Performed By: #### L 500.2500, L100.0100 ####[facility] [address] [place], [address] eGFR Normal >60 [facility] Comment on above: Result Comment: Canc elled via OM: Order cancelled - Patient discharged Performed By: #### L 500.2500, L100.0100 ####[facility] [address] [place], [address] GAP Normal 5-15 [facility] Comment on above: Result Comment: Canc elled via OM: Order cancelled - Patient discharged Performed By: #### L 500.2500, L100.0100 ####[facility] [address] [place], [address] GLU Normal 70-99 [facility] Comment on above: Result Comment: Canc elled via OM: Order cancelled - Patient discharged Performed By: #### L 500.2500, L100.0100 ####[facility] [address] [place], [address] Potassium Normal 3.3-5.1 [facility] Comment on above: Result Comment: Canc elled via OM: Order cancelled - Patient discharged Performed By: #### L 500.2500, L100.0100 ####[facility] [address] [place], [address] Basic Metabolic Profile (BMP) Normal 133-145 [facility] Comment on above: Result Comment: Canc elled via OM: Order cancelled - Patient discharged Performed By: #### L 500.2500, L100.0100 ####[facility] [address] [place], [address] CBC W/Diff, Automatedon 05-1 Absolute Neut Normal 2.0-7.7 [facility] Comment on above: Result Comment: Canc elled via OM: Order cancelled - Patient discharged Performed By: #### L 500.2500, L100.0100 ####[facility] [address] [place], [address] HCT Normal 37-47 [facility] Comment on above: Result Comment: Canc elled via OM: Order cancelled - Patient discharged Performed By: #### L 500.2500, L100.0100 ####[facility] [address] [place], [address] HGB Normal 12.0-15.0 [facility] Comment on above: Result Comment: Canc elled via OM: Order cancelled - Patient discharged Performed By: #### L 500.2500, L100.0100 ####[facility] [address] [place], [address] MCH Normal 27.0-32.0 [facility] Comment on above: Result Comment: Canc elled via OM: Order cancelled - Patient discharged Performed By: #### L 500.2500, L100.0100 ####[facility] [address] [place], [address] MCHC Normal 32-36 [facility] Comment on above: Result Comment: Canc elled via OM: Order cancelled - Patient discharged Performed By: #### L 500.2500, L100.0100 ####[facility] [address] [place], [address] MCV Normal 81-99 [facility] Comment on above: Result Comment: Canc elled via OM: Order cancelled - Patient discharged Performed By: #### L 500.2500, L100.0100 ####[facility] [address] [place], [address] NEUT% Normal 47-70 [facility] Comment on above: Result Comment: Canc elled via OM: Order cancelled - Patient discharged Performed By: #### L 500.2500, L100.0100 ####[facility] [address] [place], [address] PLT Normal 150-450 [facility] Comment on above: Result Comment: Canc elled via OM: Order cancelled - Patient discharged Performed By: #### L 500.2500, L100.0100 ####[facility] [address] [place], [address] RBC Normal 4.2-5.4 [facility] Comment on above: Result Comment: Canc elled via OM: Order cancelled - Patient discharged Performed By: #### L 500.2500, L100.0100 ####[facility] [address] [place], [address] RDW CV Normal 11.6-14.6 [facility] Comment on above: Result Comment: Canc elled via OM: Order cancelled - Patient discharged Performed By: #### L 500.2500, L100.0100 ####[facility] [address] [place], [address] RDW SD Normal 35.1-43.9 [facility] Comment on above: Result Comment: Canc elled via OM: Order cancelled - Patient discharged Performed By: #### L 500.2500, L100.0100 ####[facility] [address] [place], [address] WBC Normal 4.4-11.0 [facility] Comment on above: Result Comment: Canc elled via OM: Order cancelled - Patient discharged Performed By: #### L 500.2500, L100.0100 ####[facility] [address] [place], [address] CNOVon 03-27-2025 [facility] -------- GELY NEWMAN ([id number]) 1950 F Date Time Provider Department 03/27/25 10:00 AM LOUISELOGYUMIKO OCHOA During your visit today, we recorded the following information about you: Pulse Respiration Blood pressure 74/minute 16/minute 134/68 Yumiko Whitehead APRN.MARKETING RECRUITER 03/27/2025 11:01 AM Signed 03/26/2025 Patient presents with: ER F/U: [facility] ED -03/20/25 Multiple falls, gangrene SADIE feet SUBJECTIVE: This is a 75 year old that is here today for Above Complaints. HOSPITAL/ER FOLLOW UP: Reason for visit: Recurrent falls, Which facility: [facility] transferred to [facility] Date of visit: 03/07/2025-03/11/2025 [facility] then to TCU 03/11/2025-03/19/2025 Diagnosis: UTI, [...] mellitus (HCC) Coronary artery disease Dr. 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 Ortiz [facility]-03/25/2020 left mild, right moderate Multiple thyroid nodules last US 01/2015 Peripheral artery disease (HCC) due to Diabetes mellitus, Dr. Kwaku Moscoso Rotator cuff syndrome of left shoulder Dr. Deluna [facility] ALLERGIES Sulfa (Sulfonamide Antibiotics) MEDICATIONS Current Outpatient [...] Take 1 tablet by mouth once daily. Vttjtmnq-Jfkx-Pjy-Folic Acid 18-0.4 mg tab Take 1 tablet [...] due on (more content not included)... [facility] MARKN Tele[facility] (JOHANAWS) -------- GELY NEWMAN ([id number]) 1950 F Date Time Provider Department 03/27/25 YUMIKO WHITEHEAD During your visit today, we recorded the following information about you: Yumiko Whitehead APRN.CNP 03/27/2025 10:59 AM Signed [place] [facility]. YAEL Trujillo Kathryn, [place] 03/30/2025 10:04 AM Signed Order, OV, [place] summary [place] [facility] Michaela Millan [place] Allergies As of Date: [...] 1 tablet by mouth once daily. - Vptwksif-Kvqp-Dfa-Folic Acid 18-0.4 mg tab Take 1 tablet [...] [L72.3, L08.9] 02/26/2019 Coronary artery disease involving winnebago heart *05/28/2019 Abnormal urine odor [R82.90] 05/28/2019 [...] MICHAELA MILLAN on 03/30/25 Normal [facility] Basic Metabolic Profile (BMP )on 03-26-2025 BUN Normal 4-19 [facility] Comment on above: Result Comment: Canc elled via OM: Order cancelled - Patient discharged Performed By: #### L 500.2500, L100.0100 ####[facility] [address] [place], [address] BUN/CRE Normal 10-20 [facility] Comment on above: Result Comment: Canc elled via OM: Order cancelled - Patient discharged Performed By: #### L 500.2500, L100.0100 ####[facility] [address] [place], [address] Calcium Normal 7.6-11.0 [facility] Comment on above: Result Comment: Canc elled via OM: Order cancelled - Patient discharged Performed By: #### L 500.2500, L100.0100 ####[facility] [address] [place], [address] CL Normal 98-108 [facility] Comment on above: Result Comment: Canc elled via OM: Order cancelled - Patient discharged Performed By: #### L 500.2500, L100.0100 ####[facility] [address] [place], [address] CO2 Normal 21.0-32.0 [facility] Comment on above: Result Comment: Canc elled via OM: Order cancelled - Patient discharged Performed By: #### L 500.2500, L100.0100 ####[facility] [address] [place], [address] CREAT,SERUM Normal 0.70-1.20 [facility] Comment on above: Result Comment: Canc elled via OM: Order cancelled - Patient discharged Performed By: #### L 500.2500, L100.0100 ####[facility] [address] [place], [address] eGFR Normal >60 [facility] Comment on above: Result Comment: Canc elled via OM: Order cancelled - Patient discharged Performed By: #### L 500.2500, L100.0100 ####[facility] [address] [place], [address] GAP Normal 5-15 [facility] Comment on above: Result Comment: Canc elled via OM: Order cancelled - Patient discharged Performed By: #### L 500.2500, L100.0100 ####[facility] [address] [place], [address] GLU Normal 70-99 [facility] Comment on above: Result Comment: Canc elled via OM: Order cancelled - Patient discharged Performed By: #### L 500.2500, L100.0100 ####[facility] [address] [place], [address] Potassium Normal 3.3-5.1 [facility] Comment on above: Result Comment: Canc elled via OM: Order cancelled - Patient discharged Performed By: #### L 500.2500, L100.0100 ####[facility] [address] [place], [address] Basic Metabolic Profile (BMP) Normal 133-145 [facility] Comment on above: Result Comment: Canc elled via OM: Order cancelled - Patient discharged Performed By: #### L 500.2500, L100.0100 ####[facility] [address] [place], [address] CBC W/Diff, Automatedon 05-0 8-2025 Absolute Neut Normal 2.0-7.7 [facility] Comment on above: Result Comment: Canc elled via OM: Order cancelled - Patient discharged Performed By: #### L 500.2500, L100.0100 ####[facility] [address] [place], [address] HCT Normal 37-47 [facility] Comment on above: Result Comment: Canc elled via OM: Order cancelled - Patient discharged Performed By: #### L 500.2500, L100.0100 ####[facility] [address] [place], [address] HGB Normal 12.0-15.0 [facility] Comment on above: Result Comment: Canc elled via OM: Order cancelled - Patient discharged Performed By: #### L 500.2500, L100.0100 ####[facility] [address] [place], [address] MCH Normal 27.0-32.0 [facility] Comment on above: Result Comment: Canc elled via OM: Order cancelled - Patient discharged Performed By: #### L 500.2500, L100.0100 ####[facility] [address] [place], [address] MCHC Normal 32-36 [facility] Comment on above: Result Comment: Canc elled via OM: Order cancelled - Patient discharged Performed By: #### L 500.2500, L100.0100 ####[facility] [address] [place], [address] MCV Normal 81-99 [facility] Comment on above: Result Comment: Canc elled via OM: Order cancelled - Patient discharged Performed By: #### L 500.2500, L100.0100 ####[facility] [address] [place], [address] NEUT% Normal 47-70 [facility] Comment on above: Result Comment: Canc elled via OM: Order cancelled - Patient discharged Performed By: #### L 500.2500, L100.0100 ####[facility] [address] [place], [address] PLT Normal 150-450 [facility] Comment on above: Result Comment: Canc elled via OM: Order cancelled - Patient discharged Performed By: #### L 500.2500, L100.0100 ####[facility] [address] [place], [address] RBC Normal 4.2-5.4 [facility] Comment on above: Result Comment: Canc elled via OM: Order cancelled - Patient discharged Performed By: #### L 500.2500, L100.0100 ####[facility] [address] [place], [address] RDW CV Normal 11.6-14.6 [facility] Comment on above: Result Comment: Canc elled via OM: Order cancelled - Patient discharged Performed By: #### L 500.2500, L100.0100 ####[facility] [address] [place], [address] RDW SD Normal 35.1-43.9 [facility] Comment on above: Result Comment: Canc elled via OM: Order cancelled - Patient discharged Performed By: #### L 500.2500, L100.0100 ####[facility] [address] [place], [address] WBC Normal 4.4-11.0 [facility] Comment on above: Result Comment: Canc elled via OM: Order cancelled - Patient discharged Performed By: #### L 500.2500, L100.0100 ####[facility] [address] [place], [address] CNPChandrika 03-26-2025 MARKN Telephone (FAMPWS) -------- GELY NEWMAN ([id number]) 1950 F Date Time Provider Department 03/26/[facility] During your visit today, we recorded the following information about you: Lebron Jacome RN 03/26/2025 12:50 PM Signed [facility]- reporting updated POC: plans to see [...] [facility]. No call back needed if pcp agrees. Clary Andres APRN.MARK 03/26/2025 1:31 PM Signed Agree. BP will be reassessed at appointment tomorrow. Let us know if not addressed at appointment tomorrow. Thank you, Clary Andres APRN.MARKETING RECRUITER Allergies As of Date: 03/26/2025 Noted Allergy [...] 1 tablet by mouth once daily. - Rnjiepvs-Pzat-Noy-Folic Acid 18-0.4 mg tab Take 1 tablet [...] [L72.3, L08.9] 02/26/2019 Coronary artery disease involving [place] heart *05/28/2019 Abnormal urine odor [R82.90] 05/28/2019 [...] Status:Closed by SELMA GALEANO on 03/26/25 Normal [facility] Gabriel 03-24-2025 CNPN Telephone (FAMPWS) -------- GELY NEWMAN ([id number]) 1950 F Date Time Provider Department 03/24/25 RISHI VASQUEZ [facility]WS During your visit today, we recorded the following information about you: Clemencia Chapman RN 03/24/2025 3:02 PM Signed [facility] PT calling from [facility] to report plan of care for [...] LPN - Fully Assessed Reason for Visit: [facility] PT POC [Other] Prescriptions as of [...] 1 tablet by mouth once daily. - Mnvyxpti-Rvon-Fbw-Folic Acid 18-0.4 mg tab Take 1 tablet [...] [L72.3, L08.9] 02/26/2019 Coronary artery disease involving [place] heart *05/28/2019 Abnormal urine odor [R82.90] 05/28/2019 [...] Status:Closed by CLEMENCIA CHAPMAN on 03/25/25 [facility] CNPN Tele[facility] (FAMPWS) -------- GELY NEWMAN ([id number]) 1950 F Date Time Provider Department 03/23/[facility] During your visit today, we recorded the following information about you: Melly Pinon LPN 03/23/2025 1:34 PM Signed Tatum with [facility] Nursing calls to report she saw pt today for start of care. Nursing will see pt once a week x 2 weeks then twice a week x 1 week, then once a week x 1. Nursing will be doing wound care and teaching wound prevention and education. ANGLEO Trinidad Bernadette, PA-C 03/24/2025 12:10 PM Signed [...] 1 tablet by mouth once daily. - Suqajlim-Qepc-Ive-Folic Acid 18-0.4 mg tab Take 1 tablet [...] [L72.3, L08.9] 02/26/2019 Coronary artery disease involving [place] heart *05/28/2019 Abnormal urine odor [R82.90] 05/28/2019 [...] JESENIA MCGEE on 03/24/25 Normal [facility] Bedside Glucoseon 03-20-2025 [place] GLU 155 mg/dL High 74-106 [facility] Comment on above: Result Comment: JEREMIAS GEMENT OF PATIENT CARE PER NURSING PROTOCOL Performed By: #### L 501.080 ####[facility] [address] [place], [address] [facility] 03-20-2025 [facility] Telephone (FAMWS) -------- GELY NEWMAN ([id number]) 1950 F Date Time Provider Department 03/20/25 RISHI VASQUEZ [facility] During your visit today, we recorded the following information about you: Clemencia Chapman RN 03/20/2025 12:55 PM Signed Yvonne with [facility] HH calls to ask if provider would be willing to follow their discharge orders for SN, PT, OT. Patient discharged home today from [facility] after having hospitalization and rehab for falls and UTI. Call back number is [phone]. GORGE Bo Jordan L, DO 03/20/2025 5:03 PM Signed Yes DO Kit Ernst Krystle, RN 03/23/2025 8:30 AM Signed Call placed to Yvonne and notified of below. Clemencia Chapman RN Allergies As of Date: 03/20/2025 Noted Allergy Reaction SULFA (SULFONAMIDE ANTIBIOTICS) 01/13/2013 16 - Unknown Comments: childhood Date Reviewed: 12/05/2024 Reviewed by: Nasim López LPN - Fully Assessed Reason for Visit: Orders [471] Prescriptions as of 03/23/2025 - hydroCHLOROthiazide 25 [...] 1 tablet by mouth once daily. - Axqzegeg-Qtjd-Lzd-Folic Acid 18-0.4 mg tab Take 1 tablet [...] [L72.3, L08.9] 02/26/2019 Coronary artery disease involving [place] heart *05/28/2019 Abnormal urine odor [R82.90] 05/28/2019 [...] CLEMENCIA CHAPMAN on 03/23/25 Normal [facility] Glucose measurement at [facility] deOrdered By: Phong Solomon on 03-20-2025 Glucose [Mass/Vol] 155 mg/dL High 74-106 [facility] Comment on above: MANAGEMENT OF PATIEN T CARE PER NURSING PROTOCOL Absolute lymphocyte countOrd ered By: Phong Solomon on 03-19-2025 Lymphocytes Auto (Unsp spec) [#/Vol] 1.25 10*3/uL 0.83-4.51 [facility] Absolute neutrophil countOrd ered By: Phong Solomon on 03-19-2025 Neutrophils (Bld) [#/Vol] 3.5 10*3/uL 2.0-7.7 [facility] Anion gap in Serum or Plasma Ordered By: Phong Solomon on 03-19-2025 Anion gap [Moles/Vol] 8 mmol/L 5-15 [facility] Automated lymphocyte count a s percentage of total leukocytesOrdered By: Phong Solomon on 03-19-2025 Lymphocytes/100 WBC Auto (Unsp spec) 22.0 % 19-41 [facility] BRCon 03-19-2025 RC Normal [facility] Comment on above: Result Comment: [id number] AP RC TRANSFUSED 03/19/25 [id number] AP RC TRANSFUSED 03/19/25 1004 Performed By: #### B RC, BTS ####[facility] [address] [place], [address] BUN/creatinine ratioOrdered By: Phong Solomon on 03-19-2025 Urea nitrogen/Creatinine [Mass ratio] 22.6 mg/mg High 10-20 [facility] Basic Metabolic Profile (BMP )on 03-19-2025 BUN/CRE 22.6 RATIO High 1020 [facility] Comment on above: Performed By: #### L 500.2500, L100.0100 ####[facility] [address] [place], [address] Calcium [Mass/Vol] 8.6 mg/dL Normal 7.6-11.0 [facility] Comment on above: Performed By: #### L 500.2500, L100.0100 ####[facility] [address] [place], [address] Chloride [Moles/Vol] 112 mmol/L High 98-108 [facility] Comment on above: Performed By: #### L 500.2500, L100.0100 ####[facility] [address] [place], [address] CO2 [Moles/Vol] 22.1 mmol/L Normal 21.0-32.0 [facility] Comment on above: Performed By: #### L 500.2500, L100.0100 ####[facility] [address] [place], [address] Creatinine [Mass/Vol] 1.47 mg/dL High 0.70-1.20 [facility] Comment on above: Performed By: #### L 500.2500, L100.0100 ####[facility] [address] [place], [address] ECRCL 35.30 ml/min Low 50-250 [facility] Comment on above: Performed By: #### L 500.2500, L100.0100 ####[facility] [address] [place], [address] GAP 8 Normal 5-15 [facility] Comment on above: Performed By: #### L 500.2500, L100.0100 ####[facility] [address] [place], [address] GFR/1.73 sq M.predicted among non-blacks MDRD (S/P/Bld) [Vol rate/Area] 37 mL/min/{1.73_m2} Low >60 [facility] Comment on above: Result Comment: mL/m in/1.73m2 CKD-EPI Creatinine Equation (2020) Performed By: #### L 500.2500, L100.0100 ####[facility] [address] [place], [address] Glucose [Mass/Vol] 111 mg/dL High 70-99 [facility] Comment on above: Performed By: #### L 500.2500, L100.0100 ####[facility] [address] [place], [address] Potassium [Moles/Vol] 4.2 mmol/L Normal 3.3-5.1 [facility] Comment on above: Performed By: #### L 500.2500, L100.0100 ####[facility] [address] [place], [address] Sodium [Moles/Vol] 142 mmol/L Normal 133-145 [facility] Comment on above: Performed By: #### L 500.2500, L100.0100 ####[facility] [address] [place], [address] Urea nitrogen [Mass/Vol] 33 mg/dL High 4-19 [facility] Comment on above: Performed By: #### L 500.2500, L100.0100 ####[facility] [address] [place], [address] Basophil percentageOrdered B y: Phong Servando on 03-19-2025 Basophils/100 WBC (Bld) 1.4 % High 0-1 [facility] Bedside Glucoseon 03-19-2025 FINGERSTICK GLU 230 mg/dL High 74-106 [facility] Comment on above: Result Comment: JEREMIAS GEMENT OF PATIENT CARE PER NURSING PROTOCOL Performed By: #### L 501.080 ####[facility] [address] [place], [address] FINGERSTICK GLU 330 mg/dL High 74-106 [facility] Comment on above: Result Comment: JEREMIAS GEMENT OF PATIENT CARE PER NURSING PROTOCOL Performed By: #### L 501.080 ####[facility] [address] [place], [address] FINGERSTICK GLU 238 mg/dL High 74-106 [facility] Comment on above: Result Comment: JEREMIAS GEMENT OF PATIENT CARE PER NURSING PROTOCOL Performed By: #### L 501.080 ####[facility] [address] [place], [address] FINGERSTICK GLU 103 mg/dL Normal 74-106 [facility] Comment on above: Result Comment: JEREMIAS GEMENT OF PATIENT CARE PER NURSING PROTOCOL Performed By: #### L 501.080 ####[facility] [address] [place], [address] FINGERSTICK GLU 64 mg/dL Low 74-106 [facility] Comment on above: Result Comment: JEREMIAS GEMENT OF PATIENT CARE PER NURSING PROTOCOL Performed By: #### L 501.080 ####[facility] [address] [place], [address] FINGERSTICK GLU 177 mg/dL High 74-106 [facility] Comment on above: Result Comment: JEREMIAS GEMENT OF PATIENT CARE PER NURSING PROTOCOL Performed By: #### L 501.080 ####[facility] [address] [place], [address] FINGERSTICK GLU 106 mg/dL Normal 74-106 [facility] Comment on above: Result Comment: JEREMIAS GEMENT OF PATIENT CARE PER NURSING PROTOCOL Performed By: #### L 501.080 ####[facility] [address] [place], [address] CBC W/Diff, Automatedon 05-0 1-2025 Absolute Lymph 1.25 X10 3/uL Normal 0.83-4.51 [facility] Comment on above: Performed By: #### L 500.2500, L100.0100 ####[facility] [address] [place], [address] Absolute Neut 3.5 X10 3/uL Normal 2.0-7.7 [facility] Comment on above: Performed By: #### L 500.2500, L100.0100 ####[facility] [address] [place], [address] Basophils/100 WBC (Bld) 1.4 % High 0-1 [facility] Comment on above: Performed By: #### L 500.2500, L100.0100 ####[facility] [address] [place], [address] Eosinophils/100 WBC (Bld) 3.5 % Normal 0-5 [facility] Comment on above: Performed By: #### L 500.2500, L100.0100 ####[facility] [address] [place], [address] Erythrocyte distribution width (RBC) [Ratio] 16.2 % High 11.6-14.6 [facility] Comment on above: Performed By: #### L 500.2500, L100.0100 ####[facility] [address] [place], [address] Hematocrit (Bld) [Volume fraction] 24.1 % Low 37-47 [facility] Comment on above: Performed By: #### L 500.2500, L100.0100 ####[facility] [address] [place], [address] Hemoglobin (Bld) [Mass/Vol] 7.6 g/dL Low 12.0-15.0 [facility] Comment on above: Performed By: #### L 500.2500, L100.0100 ####[facility] [address] [place], [address] IG% 0.400 Normal 0.0-0.9 [facility] Comment on above: Result Comment: IG% - Immature Granulocytes (promyelocytes, myelocytes andmetamyelocytes) > 1% indicates that a LEFT SHIFT is Present. Performed By: #### L 500.2500, L100.0100 ####[facility] [address] [place], [address] Lymphocytes/100 WBC (Bld) 22.0 % Normal 19-41 [facility] Comment on above: Performed By: #### L 500.2500, L100.0100 ####[facility] [address] [place], [address] MCH (RBC) [Entitic mass] 29.1 pg Normal 27.0-32.0 [facility] Comment on above: Performed By: #### L 500.2500, L100.0100 ####[facility] [address] [place], [address] MCHC (RBC) [Mass/Vol] 31.5 g/dL Low 32-36 [facility] Comment on above: Performed By: #### L 500.2500, L100.0100 ####[facility] [address] [place], [address] MCV (RBC) [Entitic vol] 92.3 fL Normal 81-99 [facility] Comment on above: Performed By: #### L 500.2500, L100.0100 ####[facility] [address] [place], [address] Monocytes/100 WBC (Bld) 11.1 % High 0-10 [facility] Comment on above: Performed By: #### L 500.2500, L100.0100 ####[facility] [address] [place], [address] Neutrophils/100 WBC (Bld) 61.6 % Normal 47-70 [facility] Comment on above: Performed By: #### L 500.2500, L100.0100 ####[facility] [address] [place], [address] Nucleated RBC (Bld) [#/Vol] 0 10*3/uL Normal 0-5 [facility] Comment on above: Performed By: #### L 500.2500, L100.0100 ####[facility] [address] [place], [address] Platelet mean volume (Bld) [Entitic vol] 11.7 fL Normal 6.2-12.0 [facility] Comment on above: Performed By: #### L 500.2500, L100.0100 ####[facility] [address] [place], [address] Platelets (Bld) [#/Vol] 159 10*3/uL Normal 150-450 [facility] Comment on above: Performed By: #### L 500.2500, L100.0100 ####[facility] [address] [place], [address] RBC (Bld) [#/Vol] 2.61 10*6/uL Low 4.2-5.4 [facility] Comment on above: Performed By: #### L 500.2500, L100.0100 ####[facility] [address] [place], [address] RDW SD 52.6 fl High 35.1-43.9 [facility] Comment on above: Performed By: #### L 500.2500, L100.0100 ####[facility] [address] [place], [address] WBC (Bld) [#/Vol] 5.7 10*3/uL Normal 4.4-11.0 [facility] Comment on above: Performed By: #### L 500.2500, L100.0100 ####[facility] [address] [place], [address] CTA Abd w/Runoff W/WO Contra ston 03-19-2025 CTA Abd w/Runoff W/WO Contrast Normal [facility] Carbon dioxide, total [Moles /volume] in Central venous bloodOrdered By: Phong Solomon on 03-19-2025 CO2 [Moles/Vol] 22.1 mmol/L 21.0-32.0 [facility] Chloride assayOrdered By: Addy Solomon on 03-19-2025 Chloride [Moles/Vol] 112 mmol/L High 98-108 [facility] Eosinophil percentageOrdered By: Phong Solomon on 03-19-2025 Eosinophils/100 WBC (Bld) 3.5 % 0-5 [facility] Erythrocyte distribution wid th ratioOrdered By: Phong Solomon on 03-19-2025 Erythrocyte distribution width (RBC) [Ratio] 16.2 % High 11.6-14.6 [facility] Erythrocyte distribution wid th standard deviationOrdered By: Phong Solomon on 03-19-2025 Erythrocyte distribution width (RBC) [Ratio] 52.6 fl High 35.1-43.9 [facility] Glomerular filtration rate ( GFR) estimation/1.73 sq m using serum, plasma, or whole bOrdered By: Phong Solomon on 03-19-2025 GFR/1.73 sq M.predicted among non-blacks MDRD (S/P/Bld) [Vol rate/Area] 37 mL/min/{1.73_m2} Low >60 [facility] Comment on above: mL/min/1.73m2 CKD-EP I Creatinine Equation (2020) Hematocrit Auto (Bld) [Volum e fraction]Ordered By: Phong Solomon on 03-19-2025 Hematocrit (Bld) [Volume fraction] 24.1 % Low 37-47 [facility] Hemoglobin measurementOrdere d By: Phong Solomon on 03-19-2025 Hemoglobin (Bld) [Mass/Vol] 7.6 g/dL Low 12.0-15.0 [facility] Immature granulocytes/100 WB C Auto (Bld)Ordered By: Phong Solomon 03-19-2025 Immature granulocytes/100 WBC (Bld) 0.400 % 0.0-0.9 [facility] Comment on above: IG% - Immature Granu locytes (promyelocytes, myelocytes and metamyelocytes) > 1% indicates that a LEFT SHIFT is Present. MCV (mean corpuscular volume ) determinationOrdered By: Phong Solomon 03-19-2025 MCV (RBC) [Entitic vol] 92.3 fL 81-99 [facility] Mean corpuscular hemoglobin (MCH) determinationOrdered By: Phong Solomon 03-19-2025 MCH (RBC) [Entitic mass] 29.1 pg 27.0-32.0 [facility] Mean corpuscular hemoglobin concentration (MCHC) determinationOrdered By: Phong Solomon 03-19-2025 MCHC (RBC) [Mass/Vol] 31.5 g/dL Low 32-36 [facility] Mean platelet volume determi nationOrdered By: Phong Solomon 03-19-2025 Platelet mean volume (Bld) [Entitic vol] 11.7 fL 6.2-12.0 [facility] Monocyte percentageOrdered B y: Phong Solomon on 03-19-2025 Monocytes/100 WBC (Bld) 11.1 % High 0-10 [facility] Neutrophil percentageOrdered By: Phong Solomon on 03-19-2025 Neutrophils/100 WBC (Bld) 61.6 % 47-70 [facility] Nucleated red blood cell per centageOrdered By: Phong Solomon on 03-19-2025 Nucleated RBC/100 WBC (Bld) [Ratio] 0 % 0-5 [facility] Platelet countOrdered By: Addy Solomon on 03-19-2025 Platelets (Bld) [#/Vol] 159 10*3/uL 150-450 [facility] Potassium measurement (mass/ volume)Ordered By: Phong Solomon on 03-19-2025 Potassium (Unsp spec) [Mass/Vol] 4.2 mmol/L 3.3-5.1 [facility] RBC Auto (Bld) [#/Vol]Ordere d By: Phong Solomon on 03-19-2025 RBC (Bld) [#/Vol] 2.61 10*6/uL Low 4.2-5.4 [facility] Serum creatinine measurement (mass/volume)Ordered By: Phong Solomon on 03-19-2025 Creatinine [Mass/Vol] 1.47 mg/dL High 0.70-1.20 [facility] Serum glucose measurement (m ass/volume)Ordered By: Phong Solomon on 03-19-2025 Glucose [Mass/Vol] 111 mg/dL High 70-99 [facility] Serum or plasma calcium natalia urement (mass/volume)Ordered By: Phong Solomon on 03-19-2025 Calcium [Mass/Vol] 8.6 mg/dL 7.6-11.0 [facility] Serum or plasma urea nitroge n measurement (mass/volume)Ordered By: Phong Solomon on 03-19-2025 Urea nitrogen [Mass/Vol] 33 mg/dL High 4-19 [facility] Sodium levelOrdered By: Phong Solomon 03-19-2025 Sodium [Moles/Vol] 142 mmol/L 133-145 [facility] Stool Occult Blood iFOBon STOB Negative Normal [facility] Comment on above: Performed By: #### M 100.7900 ####[facility] [address] [place], [place], [address] Stool gastrointestinal hemog lobin detection by immunologic methodOrdered By: Phong Solomon on 03-19-2025 Lower GI hemoglobin IA Ql (Stl) [facility] Type AND Screenon 03-19-2025 Ab SCREEN GEL Negative Normal [facility] Comment on above: Order Comment: CMV N EG? NNumber of units to transfuse: 2Reason for Ordering Blood: AcuteAre the blood/blood products to be transfused? YIs the patient having/had surgery? Jordan Fitzgerald Performed By: #### B MILI, BTS ####[facility] [address] [place], [address] ABO and Rh group Nom (Bld) Blood group A Rh(D) positive Normal [facility] Comment on above: Order Comment: CMV N EG? NNumber of units to transfuse: 2Reason for Ordering Blood: AcuteAre the blood/blood products to be transfused? YIs the patient having/had surgery? Jordan Fitzgerald Performed By: #### B MILI, BTS ####[facility] [address] [place], [place], [address] White blood cell (WBC) count Ordered By: Phong Solomon on 03-19-2025 WBC (Bld) [#/Vol] 5.7 10*3/uL 4.4-11.0 [facility] Bedside Glucoseon 03-18-2025 FINGERSTICK GLU 158 mg/dL High 74-106 [facility] Comment on above: Result Comment: JEREMIAS GEMENT OF PATIENT CARE PER NURSING PROTOCOL Performed By: #### L 501.080 ####[facility] [address] [place], [address] FINGERSTICK GLU 205 mg/dL High 74-106 [facility] Comment on above: Result Comment: JEREMIAS GEMENT OF PATIENT CARE PER NURSING PROTOCOL Performed By: #### L 501.080 ####[facility] [address] [place], [address] FINGERSTICK GLU 235 mg/dL High 74-106 [facility] Comment on above: Result Comment: JEREMIAS GEMENT OF PATIENT CARE PER NURSING PROTOCOL Performed By: #### L 501.080 ####[facility] [address] [place], [address] FINGERSTICK GLU 89 mg/dL Normal 74-106 [facility] Comment on above: Result Comment: JEREMIAS GEMENT OF PATIENT CARE PER NURSING PROTOCOL Performed By: #### L 501.080 ####[facility] [address] [place], [address] Bedside Glucoseon 03-17-2025 FINGERSTICK GLU 129 mg/dL High 74-106 [facility] Comment on above: Result Comment: JEREMIAS GEMENT OF PATIENT CARE PER NURSING PROTOCOL Performed By: #### L 501.080 ####[facility] [address] [place], [address] FINGERSTICK GLU 101 mg/dL Normal 74-106 [facility] Comment on above: Result Comment: JEREMIAS GEMENT OF PATIENT CARE PER NURSING PROTOCOL Performed By: #### L 501.080 ####[facility] [address] [place], [address] FINGERSTICK GLU 120 mg/dL High 74-106 [facility] Comment on above: Result Comment: JEREMIAS GEMENT OF PATIENT CARE PER NURSING PROTOCOL Performed By: #### L 501.080 ####[facility] [address] [place], [address] Bedside Glucoseon 03-16-2025 FINGERSTICK GLU 154 mg/dL High 74-106 [facility] Comment on above: Result Comment: JEREMIAS GEMENT OF PATIENT CARE PER NURSING PROTOCOL Performed By: #### L 501.080 ####[facility] [address] [place], [address] FINGERSTICK GLU 127 mg/dL High 74-106 [facility] Comment on above: Result Comment: JEREMIAS GEMENT OF PATIENT CARE PER NURSING PROTOCOL Performed By: #### L 501.080 ####[facility] [address] [place], [address] FINGERSTICK GLU 162 mg/dL High 74-106 [facility] Comment on above: Result Comment: JEREMIAS GEMENT OF PATIENT CARE PER NURSING PROTOCOL Performed By: #### L 501.080 ####[facility] [address] [place], [address] FINGERSTICK GLU 120 mg/dL High -[address] [place] [address] Comment on above: Result Comment: JEREMIAS GEMENT OF PATIENT CARE PER NURSING PROTOCOL Performed By: #### L 501.080 ####[facility] [address] [place], [address] Bedside Glucoseon 03-15-2025 FINGERSTICK GLU 247 mg/dL High -106 [facility] Comment on above: Result Comment: JEREMIAS GEMENT OF PATIENT CARE PER NURSING PROTOCOL Performed By: #### L 501.080 ####[facility] [address] [place], [address] FINGERSTICK GLU 256 mg/dL High -106 [facility] Comment on above: Result Comment: JEREMIAS GEMENT OF PATIENT CARE PER NURSING PROTOCOL Performed By: #### L 501.080 ####[facility] [address] [place], [address] FINGERSTICK GLU 286 mg/dL High -106 [facility] Comment on above: Result Comment: JEREMIAS GEMENT OF PATIENT CARE PER NURSING PROTOCOL Performed By: #### L 501.080 ####[facility] [address] [place], [address] FINGERSTICK GLU 161 mg/dL High 74-106 [facility] Comment on above: Result Comment: JEREMIAS GEMENT OF PATIENT CARE PER NURSING PROTOCOL Performed By: #### L 501.080 ####[facility] [address] [place], [address] Bedside Glucoseon 03-14-2025 FINGERSTICK GLU 228 mg/dL High [address] [place] [address] Comment on above: Result Comment: JEREMIAS GEMENT OF PATIENT CARE PER NURSING PROTOCOL Performed By: #### L 501.080 ####[facility] [address] [place], [address] FINGERSTICK GLU 201 mg/dL High [address] [place] [address] Comment on above: Result Comment: JEREMIAS GEMENT OF PATIENT CARE PER NURSING PROTOCOL Performed By: #### L 501.080 ####[facility] [address] [place], [address] FINGERSTICK GLU 204 mg/dL [address] Comment on above: Result Comment: JEREMIAS GEMENT OF PATIENT CARE PER NURSING PROTOCOL Performed By: #### L 501.080 ####[facility] [address] [place], [address] FINGERSTICK GLU 163 mg/dL [address] Comment on above: Result Comment: JEREMIAS GEMENT OF PATIENT CARE PER NURSING PROTOCOL Performed By: #### L 501.080 ####[facility] [address] [place], [address] Bedside Glucoseon 03-13-2025 FINGERSTICK GLU 258 mg/dL High [address] [place] [address] Comment on above: Result Comment: JEREMIAS GEMENT OF PATIENT CARE PER NURSING PROTOCOL Performed By: #### L 501.080 ####[facility] [address] [place], [address] FINGERSTICK GLU 286 mg/dL High [address] [place] [address] Comment on above: Result Comment: JEREMIAS GEMENT OF PATIENT CARE PER NURSING PROTOCOL Performed By: #### L 501.080 ####[facility] [address] [place], [address] FINGERSTICK GLU 217 mg/dL High 74-106 [facility] Comment on above: Result Comment: JEREMIAS GEMENT OF PATIENT CARE PER NURSING PROTOCOL Performed By: #### L 501.080 ####[facility] [address] [place], [address] FINGERSTICK GLU 132 mg/dL High 74-106 [facility] Comment on above: Result Comment: JEREMIAS GEMENT OF PATIENT CARE PER NURSING PROTOCOL Performed By: #### L 501.080 ####[facility] [address] [place], [place], [address] Calculated very low density lipoprotein (VLDL) cholesterol measurementOrdered By: Phong Solomon on 03-13-2025 Calculated very low density lipoprotein (VLDL) cholesterol measurement 25 mg/dL 5-40 [facility] Consultation - Surgicalon Consultation - Surgical Normal [facility] LDL calc ser/plasOrdered By: Phong Solomon on 03-13-2025 Cholesterol in LDL [Mass/Vol] 39 mg/dL [facility] Comment on above: Djuelrxxuc=076-916 m g/dL & Higher Snxs=145 mg/dL or greater Lipid Profileon 03-13-2025 CHOL:HDL 2.85 Normal [facility] Comment on above: Performed By: #### L 500.4100 ####[facility] [address] [place], [place], [id number] Cholesterol [Mass/Vol] 99 mg/dL Normal <=200 [facility] Comment on above: Result Comment: Chol esterol level, Desirable <200 mg/dLBorderline high cholesterol 200-239 mg/dLHigh cholesterol >=240 mg/dLRecommendations of the NCEP Adult Treatment Panel for thefollowing risk-cutoff thresholds for the [place] Americanpulation. Performed By: #### L 500.4100 ####[facility] [address] [place], [address] Cholesterol in HDL [Mass/Vol] 35 mg/dL Low [facility] Comment on above: Result Comment: Ligia onal Cholesterol Education Program (NCEP) guidelines:<40 mg/dL: Low HDL-cholesterol (major risk factor for CHD)>= 60 mg/dL: High HDL-cholesterol (negative risk factor forCHD)HDL-cholesterol is affected by a number of factors, e.g.smoking, exercise, hormones, sex and age. Performed By: #### L 500.4100 ####[facility] [address] [place], [place], [phone] Cholesterol in LDL [Mass/Vol] 39 mg/dL Normal [facility] Comment on above: Result Comment: Bord mxnrtc=122-565 mg/dL Higher Ibmb=403 mg/dL or greater Performed By: #### L 500.4100 ####[facility] [address] [place], [address]([phone]) Cholesterol in VLDL [Mass/Vol] 25 mg/dL Normal 5-40 [facility] Comment on above: Performed By: #### L 500.4100 ####[facility] [address] [place], [phone] Triglyceride [Mass/Vol] 126 mg/dL Normal [facility] Comment on above: Result Comment: The drugs N-Acetylcysteine and Metamizole may falselydepress this assay.Normal range: <150 mg/dLBorderline High: 150-199 mg/dLHigh: 200-499 mg/dLVery High: >500 mg/dL Performed By: #### L 500.4100 ####[facility] [address] [place], [address](535) Screening total cholesterol/ high density lipoprotein (HDL) cholesterol ratioOrdered By: Phong Solomon on 03-13-2025 Cholesterol.total/Chol esterol in HDL [Mass ratio] 2.85 {ratio} [facility] Serum or plasma cholesterol in HDL measurement (mass/volume)Ordered By: Phong Solomon on 03-13-2025 Cholesterol in HDL [Mass/Vol] 35 mg/dL Low >40 [facility] Comment on above: National Cholesterol Education Program (NCEP) guidelines:<40 mg/dL: Low HDL-cholesterol (major risk factor for CHD)>= 60 mg/dL: High HDL-cholesterol (negative risk factor for CHD)HDL-cholesterol is affected by a number of factors, e.g. smoking, exercise, hormones, sex and age. Serum or plasma cholesterol measurement (mass/volume)Ordered By: Phong Solomon on 03-13-2025 Cholesterol [Mass/Vol] 99 mg/dL <201 [facility] Comment on above: Cholesterol level, D esirable <200 mg/dLBorderline high cholesterol 200-239 mg/dLHigh cholesterol >=240 mg/dLRecommendations of the NCEP Adult Treatment Panel for the following risk-cutoff thresholds for the [place] population. Triglycerides measurementOrd ered By: Phong Solomon on 03-13-2025 Triglyceride [Mass/Vol] 126 mg/dL <199 [facility] Comment on above: The drugs N-Acetylcy steine and Metamizole may falsely depress this assay. Normal range: <150 mg/dLBorderline High: 150-199 mg/dLHigh: 200-499 mg/dLVery High: >500 mg/dL Basic Metabolic Profile (BMP )on 03-12-2025 BUN/CRE 33.8 RATIO High 10-20 [facility] Comment on above: Performed By: #### L 500.2500, L100.0100 ####[facility] [address] [place], [address] Calcium [Mass/Vol] 8.9 mg/dL Normal 7.6-11.0 [facility] Comment on above: Performed By: #### L 500.2500, L100.0100 ####[facility] [address] [place], [address] Chloride [Moles/Vol] 110 mmol/L High 98-108 [facility] Comment on above: Performed By: #### L 500.2500, L100.0100 ####[facility] [address] [place], [address] CO2 [Moles/Vol] 19.8 mmol/L Low 21.0-32.0 [facility] Comment on above: Performed By: #### L 500.2500, L100.0100 ####[facility] [address] [place], [address] Creatinine [Mass/Vol] 1.48 mg/dL High 0.70-1.20 [facility] Comment on above: Performed By: #### L 500.2500, L100.0100 ####[facility] [address] [place], [address] ECRCL 34.76 ml/min Low 50-250 [facility] Comment on above: Performed By: #### L 500.2500, L100.0100 ####[facility] [address] [place], [address] GAP 12 Normal 5-15 [facility] Comment on above: Performed By: #### L 500.2500, L100.0100 ####[facility] [address] [place], [address] GFR/1.73 sq M.predicted among non-blacks MDRD (S/P/Bld) [Vol rate/Area] 37 mL/min/{1.73_m2} Low >60 [facility] Comment on above: Result Comment: mL/m in/1.73m2 CKD-EPI Creatinine Equation (2020) Performed By: #### L 500.2500, L100.0100 ####[facility] [address] [place], [address] Glucose [Mass/Vol] 137 mg/dL High 70-99 [facility] Comment on above: Performed By: #### L 500.2500, L100.0100 ####[facility] [address] [place], [address] Potassium [Moles/Vol] 4.6 mmol/L Normal 3.3-5.1 [facility] Comment on above: Performed By: #### L 500.2500, L100.0100 ####[facility] [address] [place], [address] Sodium [Moles/Vol] 141 mmol/L Normal 133-145 [facility] Comment on above: Performed By: #### L 500.2500, L100.0100 ####[facility] [address] [place], [address] Urea nitrogen [Mass/Vol] 50 mg/dL High 4-19 [facility] Comment on above: Performed By: #### L 500.2500, L100.0100 ####[facility] [address] [place], [address] BUN Normal 4-19 [facility] Comment on above: Result Comment: Canc elled via OM: Order cancelled - Patient discharged Performed By: #### L 100.0100, L500.2500 ####[facility] [address] [place], [address] BUN/CRE Normal 10-20 [facility] Comment on above: Result Comment: Canc elled via OM: Order cancelled - Patient discharged Performed By: #### L 100.0100, L500.2500 ####[facility] [address] [place], [address] Calcium Normal 7.6-11.0 [facility] Comment on above: Result Comment: Canc elled via OM: Order cancelled - Patient discharged Performed By: #### L 100.0100, L500.2500 ####[facility] [address] [place], [address] CL Normal 98-108 [facility] Comment on above: Result Comment: Canc elled via OM: Order cancelled - Patient discharged Performed By: #### L 100.0100, L500.2500 ####[facility] [address] [place], [address] CO2 Normal 21.0-32.0 [facility] Comment on above: Result Comment: Canc elled via OM: Order cancelled - Patient discharged Performed By: #### L 100.0100, L500.2500 ####[facility] [address] [place], [address] CREAT,SERUM Normal 0.70-1.20 [facility] Comment on above: Result Comment: Canc elled via OM: Order cancelled - Patient discharged Performed By: #### L 100.0100, L500.2500 ####[facility] [address] [place], [address] eGFR Normal >60 [facility] Comment on above: Result Comment: Canc elled via OM: Order cancelled - Patient discharged Performed By: #### L 100.0100, L500.2500 ####[facility] [address] [place], [address] GAP Normal 5-15 [facility] Comment on above: Result Comment: Canc elled via OM: Order cancelled - Patient discharged Performed By: #### L 100.0100, L500.2500 ####[facility] [address] [place], [address] GLU Normal 70-99 [facility] Comment on above: Result Comment: Canc elled via OM: Order cancelled - Patient discharged Performed By: #### L 100.0100, L500.2500 ####[facility] [address] [place], [address] Potassium Normal 3.3-5.1 [facility] Comment on above: Result Comment: Canc elled via OM: Order cancelled - Patient discharged Performed By: #### L 100.0100, L500.2500 ####[facility] [address] [place], [address] Basic Metabolic Profile (BMP) Normal 133-145 [facility] Comment on above: Result Comment: Canc elled via OM: Order cancelled - Patient discharged Performed By: #### L 100.0100, L500.2500 ####[facility] [address] [place], [address] Bedside Glucoseon 03-12-2025 FINGERSTICK GLU 220 mg/dL High 74-106 [facility] Comment on above: Result Comment: JEREMIAS GEMENT OF PATIENT CARE PER NURSING PROTOCOL Performed By: #### L 501.080 ####[facility] [address] [place], [address] FINGERSTICK GLU 276 mg/dL High 74-106 [facility] Comment on above: Result Comment: JEREMIAS GEMENT OF PATIENT CARE PER NURSING PROTOCOL Performed By: #### L 501.080 ####[facility] [address] [place], [address] FINGERSTICK GLU 315 mg/dL High 74-106 [facility] Comment on above: Result Comment: JEREMIAS GEMENT OF PATIENT CARE PER NURSING PROTOCOL Performed By: #### L 501.080 ####[facility] [address] [place], [address] FINGERSTICK GLU 129 mg/dL High 74-106 [facility] Comment on above: Result Comment: JEREMIAS GEMENT OF PATIENT CARE PER NURSING PROTOCOL Performed By: #### L 501.080 ####[facility] [address] [place], [address] CBC W/Diff, Automatedon 04- Absolute Lymph 1.65 X10 3/uL Normal 0.83-4.51 [facility] Comment on above: Performed By: #### L 500.2500, L100.0100 ####[facility] [address] [place], [address] Absolute Neut 6.7 X10 3/uL Normal 2.0-7.7 [facility] Comment on above: Performed By: #### L 500.2500, L100.0100 ####[facility] [address] [place], [address] Basophils/100 WBC (Bld) 0.7 % Normal 0-1 [facility] Comment on above: Performed By: #### L 500.2500, L100.0100 ####[facility] [address] [place], [address] Eosinophils/100 WBC (Bld) 2.9 % Normal 0-5 [facility] Comment on above: Performed By: #### L 500.2500, L100.0100 ####[facility] [address] [place], [address] Erythrocyte distribution width (RBC) [Ratio] 15.8 % High 11.6-14.6 [facility] Comment on above: Performed By: #### L 500.2500, L100.0100 ####[facility] [address] [place], [address] Hematocrit (Bld) [Volume fraction] 29.0 % Low 37-47 [facility] Comment on above: Performed By: #### L 500.2500, L100.0100 ####[facility] [address] [place], [address] Hemoglobin (Bld) [Mass/Vol] 9.0 g/dL Low 12.0-15.0 [facility] Comment on above: Performed By: #### L 500.2500, L100.0100 ####[facility] [address] [place], [address] IG% 1.000 High 0.0-0.9 [facility] Comment on above: Result Comment: IG% - Immature Granulocytes (promyelocytes, myelocytes andmetamyelocytes) > 1% indicates that a LEFT SHIFT is Present. Performed By: #### L 500.2500, L100.0100 ####[facility] [address] [place], [address] Lymphocytes/100 WBC (Bld) 16.9 % Low 19-41 [facility] Comment on above: Performed By: #### L 500.2500, L100.0100 ####[facility] [address] [place], [address] MCH (RBC) [Entitic mass] 28.7 pg Normal 27.0-32.0 [facility] Comment on above: Performed By: #### L 500.2500, L100.0100 ####[facility] [address] [place], [address] MCHC (RBC) [Mass/Vol] 31.0 g/dL Low 32-36 [facility] Comment on above: Performed By: #### L 500.2500, L100.0100 ####[facility] [address] [place], [address] MCV (RBC) [Entitic vol] 92.4 fL Normal 81-99 [facility] Comment on above: Performed By: #### L 500.2500, L100.0100 ####[facility] [address] [place], [address] Monocytes/100 WBC (Bld) 10.2 % High 0-10 [facility] Comment on above: Performed By: #### L 500.2500, L100.0100 ####[facility] [address] [place], [address] Neutrophils/100 WBC (Bld) 68.3 % Normal 47-70 [facility] Comment on above: Performed By: #### L 500.2500, L100.0100 ####[facility] [address] [place], [address] Nucleated RBC (Bld) [#/Vol] 0 10*3/uL Normal 0-5 [facility] Comment on above: Performed By: #### L 500.2500, L100.0100 ####[facility] [address] [place], [address] Platelet mean volume (Bld) [Entitic vol] 11.8 fL Normal 6.2-12.0 [facility] Comment on above: Performed By: #### L 500.2500, L100.0100 ####[facility] [address] [place], [address] Platelets (Bld) [#/Vol] 175 10*3/uL Normal 150-450 [facility] Comment on above: Performed By: #### L 500.2500, L100.0100 ####[facility] [address] [place], [address] RBC (Bld) [#/Vol] 3.14 10*6/uL Low 4.2-5.4 [facility] Comment on above: Performed By: #### L 500.2500, L100.0100 ####[facility] [address] [place], [address] RDW SD 51.3 fl High 35.1-43.9 [facility] Comment on above: Performed By: #### L 500.2500, L100.0100 ####[facility] [address] [place], [address] WBC (Bld) [#/Vol] 9.8 10*3/uL Normal 4.4-11.0 [facility] Comment on above: Performed By: #### L 500.2500, L100.0100 ####[facility] [address] [place], [address] Absolute Neut Normal 2.0-7.7 [facility] Comment on above: Result Comment: Canc elled via OM: Order cancelled - Patient discharged Performed By: #### L 100.0100, L500.2500 ####[facility] [address] [place], [address] HCT Normal 37-47 [facility] Comment on above: Result Comment: Canc elled via OM: Order cancelled - Patient discharged Performed By: #### L 100.0100, L500.2500 ####[facility] [address] [place], [address] HGB Normal 12.0-15.0 [facility] Comment on above: Result Comment: Canc elled via OM: Order cancelled - Patient discharged Performed By: #### L 100.0100, L500.2500 ####[facility] [address] [place], [address] MCH Normal 27.0-32.0 [facility] Comment on above: Result Comment: Canc elled via OM: Order cancelled - Patient discharged Performed By: #### L 100.0100, L500.2500 ####[facility] [address] [place], [address] MCHC Normal 32-36 [facility] Comment on above: Result Comment: Canc elled via OM: Order cancelled - Patient discharged Performed By: #### L 100.0100, L500.2500 ####[facility] [address] [place], [address] MCV Normal 81-99 [facility] Comment on above: Result Comment: Canc elled via OM: Order cancelled - Patient discharged Performed By: #### L 100.0100, L500.2500 ####[facility] [address] [place], [address] NEUT% Normal 47-70 [facility] Comment on above: Result Comment: Canc elled via OM: Order cancelled - Patient discharged Performed By: #### L 100.0100, L500.2500 ####[facility] [address] [place], [address] PLT Normal 150-450 [facility] Comment on above: Result Comment: Canc elled via OM: Order cancelled - Patient discharged Performed By: #### L 100.0100, L500.2500 ####[facility] [address] [place], [address] RBC Normal 4.2-5.4 [facility] Comment on above: Result Comment: Canc elled via OM: Order cancelled - Patient discharged Performed By: #### L 100.0100, L500.2500 ####[facility] [address] [place], [address] RDW CV Normal 11.6-14.6 [facility] Comment on above: Result Comment: Canc elled via OM: Order cancelled - Patient discharged Performed By: #### L 100.0100, L500.2500 ####[facility] [address] [place], [address] RDW SD Normal 35.1-43.9 [facility] Comment on above: Result Comment: Canc elled via OM: Order cancelled - Patient discharged Performed By: #### L 100.0100, L500.2500 ####[facility] [address] [place], [address] WBC Normal 4.4-11.0 [facility] Comment on above: Result Comment: Canc elled via OM: Order cancelled - Patient discharged Performed By: #### L 100.0100, L500.2500 ####[facility] [address] [place], [address] Absolute lymphocyte countOrd ered By: Broderick Dempsey on 03-11-2025 Lymphocytes Auto (Unsp spec) [#/Vol] 1.37 10*3/uL 0.83-4.51 [facility] Absolute neutrophil countOrd ered By: Broderick Dempsey on 03-11-2025 Neutrophils (Bld) [#/Vol] 5.4 10*3/uL 2.0-7.7 [facility] Anion gap in Serum or Plasma Ordered By: Broderick Dempsey on 03-11-2025 Anion gap [Moles/Vol] 10 mmol/L 5-15 [facility] Automated lymphocyte count a s percentage of total leukocytesOrdered By: Broderick Dempsey on 03-11-2025 Lymphocytes/100 WBC Auto (Unsp spec) 17.0 % Low 19-41 [facility] BUN/creatinine ratioOrdered By: Broderick Dempsey on 03-11-2025 Urea nitrogen/Creatinine [Mass ratio] 37.8 mg/mg High 10-20 [facility] Basic Metabolic Profile (BMP )on 03-11-2025 BUN/CRE 37.8 RATIO High 10-20 [facility] Comment on above: Performed By: #### L 500.2500, L100.0100 ####[facility] [address] [place], [address] Calcium [Mass/Vol] 8.4 mg/dL Normal 7.6-11.0 [facility] Comment on above: Performed By: #### L 500.2500, L100.0100 ####[facility] [address] [place], [address] Chloride [Moles/Vol] 111 mmol/L High 98-108 [facility] Comment on above: Performed By: #### L 500.2500, L100.0100 ####[facility] [address] [place], [address] CO2 [Moles/Vol] 19.8 mmol/L Low 21.0-32.0 [facility] Comment on above: Performed By: #### L 500.2500, L100.0100 ####[facility] [address] [place], [address] Creatinine [Mass/Vol] 1.41 mg/dL High 0.70-1.20 [facility] Comment on above: Performed By: #### L 500.2500, L100.0100 ####[facility] [address] [place], [address] ECRCL 36.83 ml/min Low 50-250 [facility] Comment on above: Performed By: #### L 500.2500, L100.0100 ####[facility] [address] [place], [address] GAP 10 Normal 5-15 [facility] Comment on above: Performed By: #### L 500.2500, L100.0100 ####[facility] [address] [place], [address] GFR/1.73 sq M.predicted among non-blacks MDRD (S/P/Bld) [Vol rate/Area] 39 mL/min/{1.73_m2} Low >60 [facility] Comment on above: Result Comment: mL/m in/1.73m2 CKD-EPI Creatinine Equation (2020) Performed By: #### L 500.2500, L100.0100 ####[facility] [address] [place], [address] Glucose [Mass/Vol] 91 mg/dL Normal 70-99 [facility] Comment on above: Performed By: #### L 500.2500, L100.0100 ####[facility] [address] [place], [address] Potassium [Moles/Vol] 4.2 mmol/L Normal 3.3-5.1 [facility] Comment on above: Performed By: #### L 500.2500, L100.0100 ####[facility] [address] [place], [address] Sodium [Moles/Vol] 141 mmol/L Normal 133-145 [facility] Comment on above: Performed By: #### L 500.2500, L100.0100 ####[facility] [address] [place], [address] Urea nitrogen [Mass/Vol] 53 mg/dL High 4-19 [facility] Comment on above: Performed By: #### L 500.2500, L100.0100 ####[facility] [address] [place], [address] Basophil percentageOrdered B y: Broderick Dempsey on 03-11-2025 Basophils/100 WBC (Bld) 0.7 % 0-1 [facility] Bedside Glucoseon 03-11-2025 FINGERSTICK GLU 204 mg/dL High 74-106 [facility] Comment on above: Result Comment: JEREMIAS GEMENT OF PATIENT CARE PER NURSING PROTOCOL Performed By: #### L 501.080 ####[facility] [address] [place], [address] FINGERSTICK GLU 164 mg/dL High 74-106 [facility] Comment on above: Result Comment: JEREMIAS GEMENT OF PATIENT CARE PER NURSING PROTOCOL Performed By: #### L 501.080 ####[facility] [address] [place], [address] FINGERSTICK GLU 282 mg/dL High 74-106 [facility] Comment on above: Result Comment: JEREMIAS GEMENT OF PATIENT CARE PER NURSING PROTOCOL Performed By: #### L 501.080 ####[facility] [address] [place], [address] FINGERSTICK GLU 82 mg/dL Normal 74-106 [facility] Comment on above: Result Comment: JEREMIAS GEMENT OF PATIENT CARE PER NURSING PROTOCOL Performed By: #### L 501.080 ####[facility] [address] [place], [address] FINGERSTICK GLU 142 mg/dL High 74-106 [facility] Comment on above: Result Comment: JEREMIAS GEMENT OF PATIENT CARE PER NURSING PROTOCOL Performed By: #### L 501.080 ####[facility] [address] [place], [address] CBC W/Diff, Automatedon 02-18 Absolute Lymph 1.37 X10 3/uL Normal 0.83-4.51 [facility] Comment on above: Performed By: #### L 500.2500, L100.0100 ####[facility] [address] [place], [address] Absolute Neut 5.4 X10 3/uL Normal 2.0-7.7 [facility] Comment on above: Performed By: #### L 500.2500, L100.0100 ####[facility] [address] [place], [address] Basophils/100 WBC (Bld) 0.7 % Normal 0-1 [facility] Comment on above: Performed By: #### L 500.2500, L100.0100 ####[facility] [address] [place], [address] Eosinophils/100 WBC (Bld) 3.6 % Normal 0-5 [facility] Comment on above: Performed By: #### L 500.2500, L100.0100 ####[facility] [address] [place], [address] Erythrocyte distribution width (RBC) [Ratio] 15.4 % High 11.6-14.6 [facility] Comment on above: Performed By: #### L 500.2500, L100.0100 ####[facility] [address] [place], [address] Hematocrit (Bld) [Volume fraction] 25.3 % Low 37-47 [facility] Comment on above: Performed By: #### L 500.2500, L100.0100 ####[facility] [address] [place], [address] Hemoglobin (Bld) [Mass/Vol] 8.0 g/dL Low 12.0-15.0 [facility] Comment on above: Performed By: #### L 500.2500, L100.0100 ####[facility] [address] [place], [address] IG% 0.900 Normal 0.0-0.9 [facility] Comment on above: Result Comment: IG% - Immature Granulocytes (promyelocytes, myelocytes andmetamyelocytes) > 1% indicates that a LEFT SHIFT is Present. Performed By: #### L 500.2500, L100.0100 ####[facility] [address] [place], [address] Lymphocytes/100 WBC (Bld) 17.0 % Low 19-41 [facility] Comment on above: Performed By: #### L 500.2500, L100.0100 ####[facility] [address] [place], [address] MCH (RBC) [Entitic mass] 28.8 pg Normal 27.0-32.0 [facility] Comment on above: Performed By: #### L 500.2500, L100.0100 ####[facility] [address] [place], [address] MCHC (RBC) [Mass/Vol] 31.6 g/dL Low 32-36 [facility] Comment on above: Performed By: #### L 500.2500, L100.0100 ####[facility] [address] [place], [address] MCV (RBC) [Entitic vol] 91.0 fL Normal 81-99 [facility] Comment on above: Performed By: #### L 500.2500, L100.0100 ####[facility] [address] [place], [address] Monocytes/100 WBC (Bld) 10.8 % High 0-10 [facility] Comment on above: Performed By: #### L 500.2500, L100.0100 ####[facility] [address] [place], [address] Neutrophils/100 WBC (Bld) 67.0 % Normal 47-70 [facility] Comment on above: Performed By: #### L 500.2500, L100.0100 ####[facility] [address] [place], [address] Nucleated RBC (Bld) [#/Vol] 0 10*3/uL Normal 0-5 [facility] Comment on above: Performed By: #### L 500.2500, L100.0100 ####[facility] [address] [place], [address] Platelet mean volume (Bld) [Entitic vol] 11.7 fL Normal 6.2-12.0 [facility] Comment on above: Performed By: #### L 500.2500, L100.0100 ####[facility] [address] [place], [address] Platelets (Bld) [#/Vol] 150 10*3/uL Normal 150-450 [facility] Comment on above: Performed By: #### L 500.2500, L100.0100 ####[facility] [address] [place], [address] RBC (Bld) [#/Vol] 2.78 10*6/uL Low 4.2-5.4 [facility] Comment on above: Performed By: #### L 500.2500, L100.0100 ####[facility] [address] [place], [address] RDW SD 49.5 fl High 35.1-43.9 [facility] Comment on above: Performed By: #### L 500.2500, L100.0100 ####[facility] [address] [place], [address] WBC (Bld) [#/Vol] 8.1 10*3/uL Normal 4.4-11.0 [facility] Comment on above: Performed By: #### L 500.2500, L100.0100 ####[facility] [address] [place], [address] Carbon dioxide, total [Moles /volume] in Central venous bloodOrdered By: Broderick Dempsey on 03-11-2025 CO2 [Moles/Vol] 19.8 mmol/L Low 21.0-32.0 [facility] Chloride assayOrdered By: Solange Dempsey on 03-11-2025 Chloride [Moles/Vol] 111 mmol/L High 98-108 [facility] Consultation - Infectious Dx on 03-11-2025 Consultation - Infectious Dx Normal [facility] Eosinophil percentageOrdered By: Broderick Dempsey on 03-11-2025 Eosinophils/100 WBC (Bld) 3.6 % 0-5 [facility] Erythrocyte distribution wid th ratioOrdered By: Broderick Dempsey on 03-11-2025 Erythrocyte distribution width (RBC) [Ratio] 15.4 % High 11.6-14.6 [facility] Erythrocyte distribution wid th standard deviationOrdered By: Broderick Dempsey on 03-11-2025 Erythrocyte distribution width (RBC) [Ratio] 49.5 fl High 35.1-43.9 [facility] Glomerular filtration rate ( GFR) estimation/1.73 sq m using serum, plasma, or whole bOrdered By: Broderick Dempsey on 03-11-2025 GFR/1.73 sq M.predicted among non-blacks MDRD (S/P/Bld) [Vol rate/Area] 39 mL/min/{1.73_m2} Low >60 [facility] Comment on above: mL/min/1.73m2 CKD-EP I Creatinine Equation (2020) Glucose measurement at bedsi deOrdered By: Broderick Dempsey on 03-11-2025 Glucose [Mass/Vol] 164 mg/dL High 74-106 [facility] Comment on above: MANAGEMENT OF PATIEN T CARE PER NURSING PROTOCOL Hematocrit Auto (Bld) [Volum e fraction]Ordered By: Broderick Dempsey on 03-11-2025 Hematocrit (Bld) [Volume fraction] 25.3 % Low 37-47 [facility] Hemoglobin measurementOrdere d By: Broderick Dempsey on 03-11-2025 Hemoglobin (Bld) [Mass/Vol] 8.0 g/dL Low 12.0-15.0 [facility] Immature granulocytes/100 WB C Auto (Bld)Ordered By: Broderick Dempsey on 03-11-2025 Immature granulocytes/100 WBC (Bld) 0.900 % 0.0-0.9 [facility] Comment on above: IG% - Immature Granu locytes (promyelocytes, myelocytes and metamyelocytes) > 1% indicates that a LEFT SHIFT is Present. MCV (mean corpuscular volume ) determinationOrdered By: Broderick Dempsey on 03-11-2025 MCV (RBC) [Entitic vol] 91.0 fL 81-99 [facility] Mean corpuscular hemoglobin (MCH) determinationOrdered By: Broderick Dempsey on 03-11-2025 MCH (RBC) [Entitic mass] 28.8 pg 27.0-32.0 [facility] Mean corpuscular hemoglobin concentration (MCHC) determinationOrdered By: Broderick Dempsey on 03-11-2025 MCHC (RBC) [Mass/Vol] 31.6 g/dL Low 32-36 [facility] Mean platelet volume determi nationOrdered By: Broderick Dempsey on 03-11-2025 Platelet mean volume (Bld) [Entitic vol] 11.7 fL 6.2-12.0 [facility] Monocyte percentageOrdered B y: Broderick Dempsey on 03-11-2025 Monocytes/100 WBC (Bld) 10.8 % High 0-10 [facility] Neutrophil percentageOrdered By: Broderick Dempsey on 03-11-2025 Neutrophils/100 WBC (Bld) 67.0 % 47-70 [facility] Nucleated red blood cell per centageOrdered By: Broderick Dempsey on 03-11-2025 Nucleated RBC/100 WBC (Bld) [Ratio] 0 % 0-5 [facility] Platelet countOrdered By: Solange Dempsey on 03-11-2025 Platelets (Bld) [#/Vol] 150 10*3/uL 150-450 [facility] Potassium measurement (mass/ volume)Ordered By: Broderick Dempsey on 03-11-2025 Potassium (Unsp spec) [Mass/Vol] 4.2 mmol/L 3.3-5.1 [facility] RBC Auto (Bld) [#/Vol]Ordere d By: Broderick Dempsey on 03-11-2025 RBC (Bld) [#/Vol] 2.78 10*6/uL Low 4.2-5.4 [facility] Serum creatinine measurement (mass/volume)Ordered By: Broderick Dempsey on 03-11-2025 Creatinine [Mass/Vol] 1.41 mg/dL High 0.70-1.20 [facility] Serum glucose measurement (m ass/volume)Ordered By: Broderick Dempsey on 03-11-2025 Glucose [Mass/Vol] 91 mg/dL 70-99 [facility] Serum or plasma calcium natalia urement (mass/volume)Ordered By: Broderick Dempsey on 03-11-2025 Calcium [Mass/Vol] 8.4 mg/dL 7.6-11.0 [facility] Serum or plasma urea nitroge n measurement (mass/volume)Ordered By: Broderick Dempsey on 03-11-2025 Urea nitrogen [Mass/Vol] 53 mg/dL High 4-19 [facility] Sodium levelOrdered By: Tevin Dempsey on 03-11-2025 Sodium [Moles/Vol] 141 mmol/L 133-145 [facility] White blood cell (WBC) count Ordered By: Broderick Dempsey on 03-11-2025 WBC (Bld) [#/Vol] 8.1 10*3/uL 4.4-11.0 [facility] Basic Metabolic Profile (BMP )on 03-10-2025 BUN/CRE 44.3 RATIO High 10-20 [facility] Comment on above: Performed By: #### L 100.0100, L500.2500 ####[facility] [address] [place], [address] Calcium [Mass/Vol] 8.4 mg/dL Normal 7.6-11.0 [facility] Comment on above: Performed By: #### L 100.0100, L500.2500 ####[facility] [address] [place], [address] Chloride [Moles/Vol] 113 mmol/L High 98-108 [facility] Comment on above: Performed By: #### L 100.0100, L500.2500 ####[facility] [address] [place], [address] CO2 [Moles/Vol] 19.1 mmol/L Low 21.0-32.0 [facility] Comment on above: Performed By: #### L 100.0100, L500.2500 ####[facility] [address] [place], [address] Creatinine [Mass/Vol] 1.47 mg/dL High 0.70-1.20 [facility] Comment on above: Performed By: #### L 100.0100, L500.2500 ####[facility] [address] [place], [address] ECRCL 35.18 ml/min Low 50-250 [facility] Comment on above: Performed By: #### L 100.0100, L500.2500 ####[facility] [address] [place], [address] GAP 10 Normal 5-15 [facility] Comment on above: Performed By: #### L 100.0100, L500.2500 ####[facility] [address] [place], [address] GFR/1.73 sq M.predicted among non-blacks MDRD (S/P/Bld) [Vol rate/Area] 37 mL/min/{1.73_m2} Low >60 [facility] Comment on above: Result Comment: mL/m in/1.73m2 CKD-EPI Creatinine Equation (2020) Performed By: #### L 100.0100, L500.2500 ####[facility] [address] [place], [address] Glucose [Mass/Vol] 81 mg/dL Normal 70-99 [facility] Comment on above: Performed By: #### L 100.0100, L500.2500 ####[facility] [address] [place], [address] Potassium [Moles/Vol] 4.2 mmol/L Normal 3.3-5.1 [facility] Comment on above: Performed By: #### L 100.0100, L500.2500 ####[facility] [address] [place], [address] Sodium [Moles/Vol] 143 mmol/L Normal 133-145 [facility] Comment on above: Performed By: #### L 100.0100, L500.2500 ####[facility] [address] [place], [address] Urea nitrogen [Mass/Vol] 65 mg/dL High 4-19 [facility] Comment on above: Performed By: #### L 100.0100, L500.2500 ####[facility] [address] [place], [address] Bedside Glucoseon 03-10-2025 FINGERSTICK GLU 186 mg/dL High 74-106 [facility] Comment on above: Result Comment: JEREMIAS GEMENT OF PATIENT CARE PER NURSING PROTOCOL Performed By: #### L 501.080 ####[facility] [address] [place], [address] FINGERSTICK GLU 308 mg/dL High 74-106 [facility] Comment on above: Result Comment: JEREMIAS GEMENT OF PATIENT CARE PER NURSING PROTOCOL Performed By: #### L 501.080 ####[facility] [address] [place], [address] FINGERSTICK GLU 84 mg/dL Normal 74-106 [facility] Comment on above: Result Comment: JEREMIAS GEMENT OF PATIENT CARE PER NURSING PROTOCOL Performed By: #### L 501.080 ####[facility] [address] [place], [address] CBC W/Diff, Automatedon 04- Absolute Lymph 1.76 X10 3/uL Normal 0.83-4.51 [facility] Comment on above: Performed By: #### L 100.0100, L500.2500 ####[facility] [address] [place], [address] Absolute Neut 4.7 X10 3/uL Normal 2.0-7.7 [facility] Comment on above: Performed By: #### L 100.0100, L500.2500 ####[facility] [address] [place], [address] Basophils/100 WBC (Bld) 0.6 % Normal 0-1 [facility] Comment on above: Performed By: #### L 100.0100, L500.2500 ####[facility] [address] [place], [address] Eosinophils/100 WBC (Bld) 3.0 % Normal 0-5 [facility] Comment on above: Performed By: #### L 100.0100, L500.2500 ####[facility] [address] [place], [address] Erythrocyte distribution width (RBC) [Ratio] 15.1 % High 11.6-14.6 [facility] Comment on above: Performed By: #### L 100.0100, L500.2500 ####[facility] [address] [place], [address] Hematocrit (Bld) [Volume fraction] 25.3 % Low 37-47 [facility] Comment on above: Performed By: #### L 100.0100, L500.2500 ####[facility] [address] [place], [address] Hemoglobin (Bld) [Mass/Vol] 8.1 g/dL Low 12.0-15.0 [facility] Comment on above: Performed By: #### L 100.0100, L500.2500 ####[facility] [address] [place], [address] IG% 1.300 High 0.0-0.9 [facility] Comment on above: Result Comment: IG% - Immature Granulocytes (promyelocytes, myelocytes andmetamyelocytes) > 1% indicates that a LEFT SHIFT is Present. Performed By: #### L 100.0100, L500.2500 ####[facility] [address] [place], [address] Lymphocytes/100 WBC (Bld) 22.3 % Normal 19-41 [facility] Comment on above: Performed By: #### L 100.0100, L500.2500 ####[facility] [address] [place], [address] MCH (RBC) [Entitic mass] 28.7 pg Normal 27.0-32.0 [facility] Comment on above: Performed By: #### L 100.0100, L500.2500 ####[facility] [address] [place], [address] MCHC (RBC) [Mass/Vol] 32.0 g/dL Normal 32-36 [facility] Comment on above: Performed By: #### L 100.0100, L500.2500 ####[facility] [address] [place], [address] MCV (RBC) [Entitic vol] 89.7 fL Normal 81-99 [facility] Comment on above: Performed By: #### L 100.0100, L500.2500 ####[facility] [address] [place], [address] Monocytes/100 WBC (Bld) 12.9 % High 0-10 [facility] Comment on above: Performed By: #### L 100.0100, L500.2500 ####[facility] [address] [place], [address] Neutrophils/100 WBC (Bld) 59.9 % Normal 47-70 [facility] Comment on above: Performed By: #### L 100.0100, L500.2500 ####[facility] [address] [place], [address] Nucleated RBC (Bld) [#/Vol] 0 10*3/uL Normal 0-5 [facility] Comment on above: Performed By: #### L 100.0100, L500.2500 ####[facility] [address] [place], [address] Platelet mean volume (Bld) [Entitic vol] 11.4 fL Normal 6.2-12.0 [facility] Comment on above: Performed By: #### L 100.0100, L500.2500 ####[facility] [address] [place], [address] Platelets (Bld) [#/Vol] 156 10*3/uL Normal 150-450 [facility] Comment on above: Performed By: #### L 100.0100, L500.2500 ####[facility] [address] [place], [address] RBC (Bld) [#/Vol] 2.82 10*6/uL Low 4.2-5.4 [facility] Comment on above: Performed By: #### L 100.0100, L500.2500 ####[facility] [address] [place], [address] RDW SD 46.9 fl High 35.1-43.9 [facility] Comment on above: Performed By: #### L 100.0100, L500.2500 ####[facility] [address] [place], [address] WBC (Bld) [#/Vol] 7.9 10*3/uL Normal 4.4-11.0 [facility] Comment on above: Performed By: #### L 100.0100, L500.2500 ####[facility] [address] [place], [address] Protein+Creatinine Ratio,Uri neon 03-10-2025 PROT:CRE RATIO 226 mg/g CRE High 0-200 [facility] Comment on above: Performed By: #### L 501.0900 ####[facility] [address] [place], [address] Protein (U) [Mass/Vol] 8.5 mg/dL Normal 0.0-12.0 [facility] Comment on above: Performed By: #### L 501.0900 ####[facility] [address] [place], [address] UR CREAT 37.70 mg/dL Normal 28.00-217.0 0 [facility] Comment on above: Performed By: #### L 501.0900 ####[facility] [address] [place], [address] Basic Metabolic Profile (BMP )on 03-09-2025 BUN/CRE 51.7 RATIO High 10-20 [facility] Comment on above: Performed By: #### L 501.3620, L500.2500, L100.0100 ####[facility] [address] [place], [address] Calcium [Mass/Vol] 8.1 mg/dL Normal 7.6-11.0 [facility] Comment on above: Performed By: #### L 501.3620, L500.2500, L100.0100 ####[facility] [address] [place], [address] Chloride [Moles/Vol] 112 mmol/L High 98-108 [facility] Comment on above: Performed By: #### L 501.3620, L500.2500, L100.0100 ####[facility] [address] [place], [address] CO2 [Moles/Vol] 19.1 mmol/L Low 21.0-32.0 [facility] Comment on above: Performed By: #### L 501.3620, L500.2500, L100.0100 ####[facility] [address] [place], [address] Creatinine [Mass/Vol] 1.63 mg/dL High 0.70-1.20 [facility] Comment on above: Performed By: #### L 501.3620, L500.2500, L100.0100 ####[facility] [address] [place], [address] ECRCL 31.75 ml/min Low 50-250 [facility] Comment on above: Performed By: #### L 501.3620, L500.2500, L100.0100 ####[facility] [address] [place], [address] GAP 10 Normal 5-15 [facility] Comment on above: Performed By: #### L 501.3620, L500.2500, L100.0100 ####[facility] [address] [place], [address] GFR/1.73 sq M.predicted among non-blacks MDRD (S/P/Bld) [Vol rate/Area] 33 mL/min/{1.73_m2} Low >60 [facility] Comment on above: Result Comment: mL/m in/1.73m2 CKD-EPI Creatinine Equation (2020) Performed By: #### L 501.3620, L500.2500, L100.0100 ####[facility] [address] [place], [address] Glucose [Mass/Vol] 120 mg/dL High 70-99 [facility] Comment on above: Performed By: #### L 501.3620, L500.2500, L100.0100 ####[facility] [address] [place], [address] Potassium [Moles/Vol] 3.8 mmol/L Normal 3.3-5.1 [facility] Comment on above: Performed By: #### L 501.3620, L500.2500, L100.0100 ####[facility] [address] [place], [address] Sodium [Moles/Vol] 141 mmol/L Normal 133-145 [facility] Comment on above: Performed By: #### L 501.3620, L500.2500, L100.0100 ####[facility] [address] [place], [address] Urea nitrogen [Mass/Vol] 84 mg/dL High 4-19 [facility] Comment on above: Performed By: #### L 501.3620, L500.2500, L100.0100 ####[facility] [address] [place], [address] Bedside Glucoseon 03-09-2025 FINGERSTICK GLU 220 mg/dL High 74-106 [facility] Comment on above: Result Comment: JEREMIAS GEMENT OF PATIENT CARE PER NURSING PROTOCOL Performed By: #### L 501.080 ####[facility] [address] [place], [address] FINGERSTICK GLU 193 mg/dL High 74-106 [facility] Comment on above: Result Comment: JEREMIAS GEMENT OF PATIENT CARE PER NURSING PROTOCOL Performed By: #### L 501.080 ####[facility] [address] [place], [address] FINGERSTICK GLU 164 mg/dL High 74-106 [facility] Comment on above: Result Comment: JEREMIAS GEMENT OF PATIENT CARE PER NURSING PROTOCOL Performed By: #### L 501.080 ####[facility] [address] [place], [address] CBC W/Diff, Automatedon Absolute Lymph 1.38 X10 3/uL Normal 0.83-4.51 [facility] Comment on above: Performed By: #### L 501.3620, L500.2500, L100.0100 ####[facility] [address] [place], [address] Absolute Neut 6.3 X10 3/uL Normal 2.0-7.7 [facility] Comment on above: Performed By: #### L 501.3620, L500.2500, L100.0100 ####[facility] [address] [place], [address] Basophils/100 WBC (Bld) 0.3 % Normal 0-1 [facility] Comment on above: Performed By: #### L 501.3620, L500.2500, L100.0100 ####[facility] [address] [place], [address] Eosinophils/100 WBC (Bld) 2.3 % Normal 0-5 [facility] Comment on above: Performed By: #### L 501.3620, L500.2500, L100.0100 ####[facility] [address] [place], [address] Erythrocyte distribution width (RBC) [Ratio] 14.7 % High 11.6-14.6 [facility] Comment on above: Performed By: #### L 501.3620, L500.2500, L100.0100 ####[facility] [address] [place], [address] Hematocrit (Bld) [Volume fraction] 23.5 % Low 37-47 [facility] Comment on above: Performed By: #### L 501.3620, L500.2500, L100.0100 ####[facility] [address] [place], [address] Hemoglobin (Bld) [Mass/Vol] 7.6 g/dL Low 12.0-15.0 [facility] Comment on above: Performed By: #### L 501.3620, L500.2500, L100.0100 ####[facility] [address] [place], [address] IG% 1.000 High 0.0-0.9 [facility] Comment on above: Result Comment: IG% - Immature Granulocytes (promyelocytes, myelocytes andmetamyelocytes) > 1% indicates that a LEFT SHIFT is Present. Performed By: #### L 501.3620, L500.2500, L100.0100 ####[facility] [address] [place], [address] Lymphocytes/100 WBC (Bld) 15.8 % Low 19-41 [facility] Comment on above: Performed By: #### L 501.3620, L500.2500, L100.0100 ####[facility] [facility] [address] [place], [address] MCH (RBC) [Entitic mass] 29.0 pg Normal 27.0-32.0 [facility] Comment on above: Performed By: #### L 501.3620, L500.2500, L100.0100 ####[facility] [address] [place], [address] MCHC (RBC) [Mass/Vol] 32.3 g/dL Normal 32-36 [facility] Comment on above: Performed By: #### L 501.3620, L500.2500, L100.0100 ####[facility] [address] [place], [address] MCV (RBC) [Entitic vol] 89.7 fL Normal 81-99 [facility] Comment on above: Performed By: #### L 501.3620, L500.2500, L100.0100 ####[facility] [address] [place], [address] Monocytes/100 WBC (Bld) 9.0 % Normal 0-10 [facility] Comment on above: Performed By: #### L 501.3620, L500.2500, L100.0100 ####[facility] [address] [place], [address] Neutrophils/100 WBC (Bld) 71.6 % High 47-70 [facility] Comment on above: Performed By: #### L 501.3620, L500.2500, L100.0100 ####[facility] [address] [place], [address] Nucleated RBC (Bld) [#/Vol] 0 10*3/uL Normal 0-5 [facility] Comment on above: Performed By: #### L 501.3620, L500.2500, L100.0100 ####[facility] [address] [place], [address] Platelet mean volume (Bld) [Entitic vol] 11.7 fL Normal 6.2-12.0 [facility] Comment on above: Performed By: #### L 501.3620, L500.2500, L100.0100 ####[facility] [address] [place], [address] Platelets (Bld) [#/Vol] 164 10*3/uL Normal 150-450 [facility] Comment on above: Performed By: #### L 501.3620, L500.2500, L100.0100 ####[facility] [address] [place], [address] RBC (Bld) [#/Vol] 2.62 10*6/uL Low 4.2-5.4 [facility] Comment on above: Performed By: #### L 501.3620, L500.2500, L100.0100 ####[facility] [address] [place], [address] RDW SD 47.1 fl High 35.1-43.9 [facility] Comment on above: Performed By: #### L 501.3620, L500.2500, L100.0100 ####[facility] [address] [place], [address] WBC (Bld) [#/Vol] 8.8 10*3/uL Normal 4.4-11.0 [facility] Comment on above: Performed By: #### L 501.3620, L500.2500, L100.0100 ####[facility] [address] [place], [address] CPK Total, Creatine Kinaseon 03-09-2025 CPK TOTAL 308 U/L High 24-195 [facility] Comment on above: Performed By: #### L 501.3620, L500.2500, L100.0100 ####[facility] [address] [place], [address] Consultation - Nephrologyon 03-09-2025 Consultation - Nephrology Normal [facility] Consultation - Surgicalon Consultation - Surgical Normal [facility] Folate [Mass/volume] in Seru m or PlasmaOrdered By: Maddie Merchant on 03-09-2025 Folate [Mass/Vol] 15.10 ng/mL 4.60-34.80 [facility] Folates,Serum (Folic Acid)on 03-09-2025 FOLATES,SERUM 15.10 ng/mL Normal 4.60-34.80 [facility] Comment on above: Performed By: #### L 506.0200 ####[facility] [address] [place], [address] Kidney and Bladderon 025 Kidney and Bladder Normal [facility] Random urine creatinine natalia urement (mass/volume)Ordered By: Zarina Adler on 03-09-2025 Creatinine Unsp time (U) [Mass/Vol] 37.70 mg/dL 28.00-217.0 0 [facility] Serum or plasma creatine kin ase activityOrdered By: Broderick Dempsey on 03-09-2025 CK [Catalytic activity/Vol] 308 U/L High 24-195 [facility] Urine Cultureon 03-09-2025 URC Normal [facility] Comment on above: Performed By: #### M 100.2200 ####[facility] [address] [facility] [address] Urine protein measurement (m ass/volume)Ordered By: Zarina Adler on 03-09-2025 Protein (U) [Mass/Vol] 8.5 mg/dL 0.0-12.0 [facility] Urine protein/creatinine mas s ratioOrdered By: Zarina Adler on 03-09-2025 Protein/Creatinine (U) [Mass ratio] 226 mg/g CRE High 0-200 [facility] Bedside Glucoseon 03-08-2025 FINGERSTICK GLU 249 mg/dL High 74-106 [facility] Comment on above: Result Comment: JEREMIAS GEMENT OF PATIENT CARE PER NURSING PROTOCOL Performed By: #### L 501.080 ####[facility] [address] [facility] [address] FINGERSTICK GLU 200 mg/dL High 74-106 [facility] Comment on above: Result Comment: JEREMIAS GEMENT OF PATIENT CARE PER NURSING PROTOCOL Performed By: #### L 501.080 ####[facility] [address] [facility] [address] FINGERSTICK GLU 165 mg/dL High 74-106 [facility] Comment on above: Result Comment: JEREMIAS GEMENT OF PATIENT CARE PER NURSING PROTOCOL Performed By: #### L 501.080 ####[facility] [address] [facility] [address] FINGERSTICK GLU 159 mg/dL High 74-106 [facility] Comment on above: Result Comment: JEREMIAS GEMENT OF PATIENT CARE PER NURSING PROTOCOL Performed By: #### L 501.080 ####[facility] [address] [place], [address] FINGERSTICK GLU 283 mg/dL High 74-106 [facility] Comment on above: Result Comment: JEREMIAS PADILLA OF PATIENT CARE PER NURSING PROTOCOL Performed By: #### L 501.080 ####[facility] [address] [place], [address] Bilirubin, totalOrdered By: Maddie Merchant on 03-08-2025 Bilirubin [Mass/Vol] 0.25 mg/dL 0.00-1.30 [facility] CBC W/Diff, Automatedon 02-18 Absolute Lymph 1.08 X10 3/uL Normal 0.83-4.51 [facility] Comment on above: Performed By: #### L 501.3620, L100.0100, L500.4050, L501.9985, L503.0106, L503.6030, L503.6550 ####[facility] [address] [place], [address] Absolute Neut 7.1 X10 3/uL Normal 2.0-7.7 [facility] Comment on above: Performed By: #### L 501.3620, L100.0100, L500.4050, L501.9985, L503.0106, L503.6030, L503.6550 ####[facility] [address] [place], [address] Basophils/100 WBC (Bld) 0.4 % Normal 0-1 [facility] Comment on above: Performed By: #### L 501.3620, L100.0100, L500.4050, L501.9985, L503.0106, L503.6030, L503.6550 ####[facility] [address] [place], [address] Eosinophils/100 WBC (Bld) 1.6 % Normal 0-5 [facility] Comment on above: Performed By: #### L 501.3620, L100.0100, L500.4050, L501.9985, L503.0106, L503.6030, L503.6550 ####[facility] [address] [place], [address] Erythrocyte distribution width (RBC) [Ratio] 14.5 % Normal 11.6-14.6 [facility] Comment on above: Performed By: #### L 501.3620, L100.0100, L500.4050, L501.9985, L503.0106, L503.6030, L503.6550 ####[facility] [address] [place], [address] Hematocrit (Bld) [Volume fraction] 25.1 % Low 37-47 [facility] Comment on above: Performed By: #### L 501.3620, L100.0100, L500.4050, L501.9985, L503.0106, L503.6030, L503.6550 ####[facility] [address] [place], [address] Hemoglobin (Bld) [Mass/Vol] 7.9 g/dL Low 12.0-15.0 [facility] Comment on above: Performed By: #### L 501.3620, L100.0100, L500.4050, L501.9985, L503.0106, L503.6030, L503.6550 ####[facility] [address] [place], [address] IG% 0.700 Normal 0.0-0.9 [facility] Comment on above: Result Comment: IG% - Immature Granulocytes (promyelocytes, myelocytes andmetamyelocytes) > 1% indicates that a LEFT SHIFT is Present. Performed By: #### L 501.3620, L100.0100, L500.4050, L501.9985, L503.0106, L503.6030, L503.6550 ####[facility] [address] [place], [address] Lymphocytes/100 WBC (Bld) 11.7 % Low 19-41 [facility] Comment on above: Performed By: #### L 501.3620, L100.0100, L500.4050, L501.9985, L503.0106, L503.6030, L503.6550 ####[facility] [address] [place], [address] MCH (RBC) [Entitic mass] 28.2 pg Normal 27.0-32.0 [facility] Comment on above: Performed By: #### L 501.3620, L100.0100, L500.4050, L501.9985, L503.0106, L503.6030, L503.6550 ####[facility] [address] [place], [address] MCHC (RBC) [Mass/Vol] 31.5 g/dL Low 32-36 [facility] Comment on above: Performed By: #### L 501.3620, L100.0100, L500.4050, L501.9985, L503.0106, L503.6030, L503.6550 ####[facility] [address] [place], [address] MCV (RBC) [Entitic vol] 89.6 fL Normal 81-99 [facility] Comment on above: Performed By: #### L 501.3620, L100.0100, L500.4050, L501.9985, L503.0106, L503.6030, L503.6550 ####[facility] [address] [place], [address] Monocytes/100 WBC (Bld) 9.1 % Normal 0-10 [facility] Comment on above: Performed By: #### L 501.3620, L100.0100, L500.4050, L501.9985, L503.0106, L503.6030, L503.6550 ####[facility] [address] [place], [address] Neutrophils/100 WBC (Bld) 76.5 % High 47-70 [facility] Comment on above: Performed By: #### L 501.3620, L100.0100, L500.4050, L501.9985, L503.0106, L503.6030, L503.6550 ####[facility] [address] [place], [address] Nucleated RBC (Bld) [#/Vol] 0 10*3/uL Normal 0-5 [facility] Comment on above: Performed By: #### L 501.3620, L100.0100, L500.4050, L501.9985, L503.0106, L503.6030, L503.6550 ####[facility] [address] [place], [address] Platelet mean volume (Bld) [Entitic vol] 11.6 fL Normal 6.2-12.0 [facility] Comment on above: Performed By: #### L 501.3620, L100.0100, L500.4050, L501.9985, L503.0106, L503.6030, L503.6550 ####[facility] [address] [place], [address] Platelets (Bld) [#/Vol] 185 10*3/uL Normal 150-450 [facility] Comment on above: Performed By: #### L 501.3620, L100.0100, L500.4050, L501.9985, L503.0106, L503.6030, L503.6550 ####[facility] [address] [place], [address] RBC (Bld) [#/Vol] 2.80 10*6/uL Low 4.2-5.4 [facility] Comment on above: Performed By: #### L 501.3620, L100.0100, L500.4050, L501.9985, L503.0106, L503.6030, L503.6550 ####[facility] [address] [place], [address] RDW SD 46.7 fl High 35.1-43.9 [facility] Comment on above: Performed By: #### L 501.3620, L100.0100, L500.4050, L501.9985, L503.0106, L503.6030, L503.6550 ####[facility] [address] [place], [place], [address] WBC (Bld) [#/Vol] 9.2 10*3/uL Normal 4.4-11.0 [facility] Comment on above: Performed By: #### L 501.3620, L100.0100, L500.4050, L501.9985, L503.0106, L503.6030, L503.6550 ####[facility] [address] [place], [place], [address] CPK Total, Creatine Kinaseon 03-08-2025 CPK TOTAL 736 U/L High 24-195 [facility] Comment on above: Performed By: #### L 501.3620, L100.0100, L500.4050, L501.9985, L503.0106, L503.6030, L503.6550 ####[facility] [address] [place], [address] Comprehensive Metabolic Prof ilon 03-08-2025 Albumin [Mass/Vol] 2.6 g/dL Low 3.4-4.8 [facility] Comment on above: Performed By: #### L 501.3620, L100.0100, L500.4050, L501.9985, L503.0106, L503.6030, L503.6550 ####[facility] [address] [place], [address] Albumin/Globulin [Mass ratio] 1.1 {ratio} Normal 0.9-2.4 [facility] Comment on above: Performed By: #### L 501.3620, L100.0100, L500.4050, L501.9985, L503.0106, L503.6030, L503.6550 ####[facility] [address] [place], [address] ALK PHOS 58 U/L Normal 35-104 [facility] Comment on above: Performed By: #### L 501.3620, L100.0100, L500.4050, L501.9985, L503.0106, L503.6030, L503.6550 ####[facility] [address] [place], [address] ALT [Catalytic activity/Vol] 48 U/L High <=34 [facility] Comment on above: Performed By: #### L 501.3620, L100.0100, L500.4050, L501.9985, L503.0106, L503.6030, L503.6550 ####[facility] [address] [place], [address] AST [Catalytic activity/Vol] 45 U/L High <=31 [facility] Comment on above: Performed By: #### L 501.3620, L100.0100, L500.4050, L501.9985, L503.0106, L503.6030, L503.6550 ####[facility] [address] [place], [address] Bilirubin [Mass/Vol] 0.25 mg/dL Normal 0.00-1.30 [facility] Comment on above: Performed By: #### L 501.3620, L100.0100, L500.4050, L501.9985, L503.0106, L503.6030, L503.6550 ####[facility] [address] [place], [address] BUN/CRE 52.5 RATIO High 10-20 [facility] Comment on above: Performed By: #### L 501.3620, L100.0100, L500.4050, L501.9985, L503.0106, L503.6030, L503.6550 ####[facility] [address] [place], [address] Calcium [Mass/Vol] 8.1 mg/dL Normal 7.6-11.0 [facility] Comment on above: Performed By: #### L 501.3620, L100.0100, L500.4050, L501.9985, L503.0106, L503.6030, L503.6550 ####[facility] [address] [place], [address] Chloride [Moles/Vol] 111 mmol/L High 98-108 [facility] Comment on above: Performed By: #### L 501.3620, L100.0100, L500.4050, L501.9985, L503.0106, L503.6030, L503.6550 ####[facility] [address] [place], [address] CO2 [Moles/Vol] 17.3 mmol/L Low 21.0-32.0 [facility] Comment on above: Performed By: #### L 501.3620, L100.0100, L500.4050, L501.9985, L503.0106, L503.6030, L503.6550 ####[facility] [address] [place], [address] Creatinine [Mass/Vol] 2.02 mg/dL High 0.70-1.20 [facility] Comment on above: Performed By: #### L 501.3620, L100.0100, L500.4050, L501.9985, L503.0106, L503.6030, L503.6550 ####[facility] [address] [place], [address] ECRCL 25.62 ml/min Low 50-250 [facility] Comment on above: Performed By: #### L 501.3620, L100.0100, L500.4050, L501.9985, L503.0106, L503.6030, L503.6550 ####[facility] [address] [place], [address] GAP 14 Normal 5-15 [facility] Comment on above: Performed By: #### L 501.3620, L100.0100, L500.4050, L501.9985, L503.0106, L503.6030, L503.6550 ####[facility] [address] [place], [address] GFR/1.73 sq M.predicted among non-blacks MDRD (S/P/Bld) [Vol rate/Area] 26 mL/min/{1.73_m2} Low >60 [facility] Comment on above: Result Comment: mL/m in/1.73m2 CKD-EPI Creatinine Equation (2020) Performed By: #### L 501.3620, L100.0100, L500.4050, L501.9985, L503.0106, L503.6030, L503.6550 ####[facility] [address] [place], [place], [id number]) Globulin (S) [Mass/Vol] 2.4 g/dL Normal 2.2-4.2 [facility] Comment on above: Performed By: #### L 501.3620, L100.0100, L500.4050, L501.9985, L503.0106, L503.6030, L503.6550 ####[facility] [address] [place], [address] Glucose [Mass/Vol] 172 mg/dL High 70-99 [facility] Comment on above: Performed By: #### L 501.3620, L100.0100, L500.4050, L501.9985, L503.0106, L503.6030, L503.6550 ####[facility] [address] [place], [address] Potassium [Moles/Vol] 3.8 mmol/L Normal 3.3-5.1 [facility] Comment on above: Performed By: #### L 501.3620, L100.0100, L500.4050, L501.9985, L503.0106, L503.6030, L503.6550 ####[facility] [address] [place], [address] Sodium [Moles/Vol] 143 mmol/L Normal 133-145 [facility] Comment on above: Performed By: #### L 501.3620, L100.0100, L500.4050, L501.9985, L503.0106, L503.6030, L503.6550 ####[facility] [address] [place], [address] T PROT 5.1 g/dL Low 5.9-8.4 [facility] Comment on above: Performed By: #### L 501.3620, L100.0100, L500.4050, L501.9985, L503.0106, L503.6030, L503.6550 ####[facility] [address] [place], [address] Urea nitrogen [Mass/Vol] 106 mg/dL Invalid Interpretation Code 4-19 [facility] Comment on above: Result Comment: Crit ical Result(s) Called at: by:??Results read back bysame.Critical Result(s) Called to Zoraida PENNINGTON (MS3): Blaiser:??Results read back by same. Performed By: #### L 501.3620, L100.0100, L500.4050, L501.9985, L503.0106, L503.6030, L503.6550 ####[facility] [address] [place], [address] Ferritinon 03-08-2025 Ferritin [Mass/Vol] 270 ng/mL Normal 22-378 [facility] Comment on above: Performed By: #### L 501.3620, L100.0100, L500.4050, L501.9985, L503.0106, L503.6030, L503.6550 ####[facility] [address] [place], [address] HH, Hemoglobin AND Hematocri ton 03-08-2025 Hematocrit (Bld) [Volume fraction] 24.0 % Low 37-47 [facility] Comment on above: Performed By: #### L 100.0600 ####[facility] [address] [place], [address] Hemoglobin (Bld) [Mass/Vol] 7.7 g/dL Low 12.0-15.0 [facility] Comment on above: Performed By: #### L 100.0600 ####[facility] [address] [place], [address] Hemoglobin A1con 03-08-2025 HbA1c (Bld) [Mass fraction] 6.5 % High <=5.6 [facility] Comment on above: Result Comment: Norm al < 5.7 % Prediabetic 5.7 - 6.4 % Diabetic >or= 6.5 % Please note range changes. Performed By: #### L 501.3620, L100.0100, L500.4050, L501.9985, L503.0106, L503.6030, L503.6550 ####[facility] [address] [place], [place], [address] Hemoglobin A1c percentageOrd ered By: Maddie Merchant on 03-08-2025 HbA1c (Bld) [Mass fraction] 6.5 % High <5.7 [facility] Comment on above: Normal < 5.7 % Predi abetic 5.7 - 6.4 % Diabetic >or= 6.5 % Please note range changes. Iron measurement (mass/mass) Ordered By: Maddie Merchant on 03-08-2025 Iron (Unsp spec) [Mass/Mass] 18 ug/dL Low 50-170 [facility] Iron+Iron Binding Capacityon 03-08-2025 TIBC TNP Normal 250-450 [facility] Comment on above: Performed By: #### L 501.3620, L100.0100, L500.4050, L501.9985, L503.0106, L503.6030, L503.6550 ####[facility] [address] [place], [place], [address] Laboratory - Chemistry and C hemistry - challengeOrdered By: Maddie Merchant on 03-08-2025 AST [Catalytic activity/Vol] 45 U/L High <32 [facility] No Panel InformationOrdered By: Maddie Merchant on 03-08-2025 Unsaturated Iron Binding Capacity 150 ug/dL Low 228-428 [facility] 45 U/L High <32 [facility] 150 ug/dL Low 228-428 [facility] Serum globulin measurementOr dered By: Maddie Merchant on 03-08-2025 Globulin (S) [Mass/Vol] 2.4 g/dL 2.2-4.2 [facility] Serum or plasma alanine anaya otransferase (ALT) measurementOrdered By: Maddie Merchant 03-08-2025 ALT [Catalytic activity/Vol] 48 U/L High <35 [facility] Serum or plasma albumin natalia urement (mass/volume)Ordered By: Maddie Merchant on 03-08-2025 Albumin [Mass/Vol] 2.6 g/dL Low 3.4-4.8 [facility] Serum or plasma albumin/glob ulin mass ratioOrdered By: Maddie Merchant on 03-08-2025 Albumin/Globulin [Mass ratio] 1.1 {ratio} 0.9-2.4 [facility] Serum or plasma alkaline chelsie sphatase measurementOrdered By: Maddie Merchant on 03-08-2025 ALP [Catalytic activity/Vol] 58 U/L 35-104 [facility] Serum or plasma ferritin areli surement (mass/volume)Ordered By: Maddie Merchant on 03-08-2025 Ferritin [Mass/Vol] 270 ng/mL 22-378 [facility] Serum or plasma iron saturat ion measurement (mass fraction)Ordered By: Maddie Merchant on 03-08-2025 Iron saturation [Mass fraction] 11.0 % Low 13-59 [facility] Total proteinOrdered By: Stacia Merchant on 03-08-2025 Protein [Mass/Vol] 5.1 g/dL Low 5.9-8.4 [facility] Vitamin B12on 03-08-2025 Cobalamin (Vitamin B12) [Mass/Vol] 3538 pg/mL High 180-914 [facility] Comment on above: Performed By: #### L 501.3620, L100.0100, L500.4050, L501.9985, L503.0106, L503.6030, L503.6550 ####[facility] [address] [place], [place], [id number] Vitamin B12 ser/plasOrdered By: Maddie Merchant on 03-08-2025 Cobalamin (Vitamin B12) [Mass/Vol] 3538 pg/mL High 180-914 [facility] 12 Lead EKGon 03-07-2025 12 Lead EKG Normal [facility] Absolute neutrophil countOrd ered By: Megan Anderson on 03-07-2025 Neutrophils (Bld) [#/Vol] 12.9 10*3/uL High 2.0-7.7 [facility] Anion gap in Serum or Plasma Ordered By: Megan Anderson on 03-07-2025 Anion gap [Moles/Vol] 18 mmol/L High 04-02 [facility] BUN/creatinine ratioOrdered By: Megan Anderson on 03-07-2025 Urea nitrogen/Creatinine [Mass ratio] 51.2 mg/mg High 09-07 [facility] Basic Metabolic Profile (BMP )on 03-07-2025 BUN/CRE 51.2 RATIO High 10-20 [facility] Comment on above: Performed By: #### L 500.2500, L100.0100, L501.3620 ####[facility] [address] [place], [address] Calcium [Mass/Vol] 8.8 mg/dL Normal 7.6-11.0 [facility] Comment on above: Performed By: #### L 500.2500, L100.0100, L501.3620 ####[facility] [address] [place], [address] Chloride [Moles/Vol] 105 mmol/L Normal 98-108 [facility] Comment on above: Performed By: #### L 500.2500, L100.0100, L501.3620 ####[facility] [address] [place], [address] CO2 [Moles/Vol] 16.8 mmol/L Low 21.0-32.0 [facility] Comment on above: Performed By: #### L 500.2500, L100.0100, [id number] ####[facility] [id number] [place], [address] Creatinine [Mass/Vol] 2.54 mg/dL High 0.70-1.20 [facility] Comment on above: Performed By: #### L 500.2500, L100.0100, [id number] ####[facility] [address] [place], [address] ECRCL 20.75 ml/min Low 50-250 [facility] Comment on above: Performed By: #### L 500.2500, L100.0100, L501.3620 ####[facility] [address] [place], [address] GAP 18 High 5-15 [facility] Comment on above: Performed By: #### L 500.2500, L100.0100, L501.3620 ####[facility] [address] [place], [address] GFR/1.73 sq M.predicted among non-blacks MDRD (S/P/Bld) [Vol rate/Area] 19 mL/min/{1.73_m2} Low >60 [facility] Comment on above: Result Comment: mL/m in/1.73m2 CKD-EPI Creatinine Equation (2020) Performed By: #### L 500.2500, L100.0100, L501.3620 ####[facility] [address] [place], [address] Glucose [Mass/Vol] 178 mg/dL High 70-99 [facility] Comment on above: Performed By: #### L 500.2500, L100.0100, L501.3620 ####[facility] [address] [place], [address] Potassium [Moles/Vol] 4.5 mmol/L Normal 3.3-5.1 [facility] Comment on above: Performed By: #### L 500.2500, L100.0100, L501.3620 ####[facility] [address] [place], [address] Sodium [Moles/Vol] 140 mmol/L Normal 133-145 [facility] Comment on above: Performed By: #### L 500.2500, L100.0100, L501.3620 ####[facility] [address] [place], [address] Urea nitrogen [Mass/Vol] 130 mg/dL Invalid Interpretation Code 03-07 [facility] Comment on above: Result Comment: Crit ical Result(s) Called at: by:??Results read back bysany.Critical Result(s) Called ACOLE at: 1532 by:CHRISTIN??Results read back by same. Performed By: #### L 500.2500, L100.0100, L501.3620 ####[facility] [address] [place], [address] Basophil percentageOrdered B y: Megan Anderson on 03-07-2025 Basophils/100 WBC (Bld) 0.3 % 0-1 [facility] Bilirubin Test strip Ql (U)O rdered By: Megan Anderson on 03-07-2025 Bilirubin Ql (U) Negative Negative [facility] Bilirubin directOrdered By: Maddie Merchant on 03-07-2025 Bilirubin.direct [Mass/Vol] 0.25 mg/dL 0.00-0.30 [facility] CBC W/Diff, Automatedon 02-17 Absolute Lymph 0.76 X10 3/uL Low 0.83-4.51 [facility] Comment on above: Performed By: #### L 500.2500, L100.0100, L501.3620 ####[facility] [address] [place], [address] Absolute Neut 12.9 X10 3/uL High 2.0-7.7 [facility] Comment on above: Performed By: #### L 500.2500, L100.0100, L501.3620 ####[facility] [address] [place], [address] Basophils/100 WBC (Bld) 0.3 % Normal 0-1 [facility] Comment on above: Performed By: #### L 500.2500, L100.0100, L501.3620 ####[facility] [address] [place], [address] Eosinophils/100 WBC (Bld) 0.4 % Normal 0-5 [facility] Comment on above: Performed By: #### L 500.2500, L100.0100, L501.3620 ####[facility] [address] [place], [address] Erythrocyte distribution width (RBC) [Ratio] 14.5 % Normal 11.6-14.6 [facility] Comment on above: Performed By: #### L 500.2500, L100.0100, L501.3620 ####[facility] [address] [place], [address] Hematocrit (Bld) [Volume fraction] 27.2 % Low 37-47 [facility] Comment on above: Performed By: #### L 500.2500, L100.0100, L501.3620 ####[facility] [address] [place], [address] Hemoglobin (Bld) [Mass/Vol] 8.7 g/dL Low 12.0-15.0 [facility] Comment on above: Performed By: #### L 500.2500, L100.0100, L501.3620 ####[facility] [address] [place], [address] IG% 1.000 High 0.0-0.9 [facility] Comment on above: Result Comment: IG% - Immature Granulocytes (promyelocytes, myelocytes andmetamyelocytes) > 1% indicates that a LEFT SHIFT is Present. Performed By: #### L 500.2500, L100.0100, L501.3620 ####[facility] [address] [place], [address] Lymphocytes/100 WBC (Bld) 5.2 % Low 19-41 [facility] Comment on above: Performed By: #### L 500.2500, L100.0100, L501.3620 ####[facility] [address] [place], [address] MCH (RBC) [Entitic mass] 28.3 pg Normal 27.0-32.0 [facility] Comment on above: Performed By: #### L 500.2500, L100.0100, L501.3620 ####[facility] [address] [place], [address] MCHC (RBC) [Mass/Vol] 32.0 g/dL Normal 32-36 [facility] Comment on above: Performed By: #### L 500.2500, L100.0100, L501.3620 ####[facility] [address] [place], [address] MCV (RBC) [Entitic vol] 88.6 fL Normal 81-99 [facility] Comment on above: Performed By: #### L 500.2500, L100.0100, L501.3620 ####[facility] [address] [place], [address] Monocytes/100 WBC (Bld) 5.3 % Normal 0-10 [facility] Comment on above: Performed By: #### L 500.2500, L100.0100, L501.3620 ####[facility] [address] [place], [address] Neutrophils/100 WBC (Bld) 87.8 % High 47-70 [facility] Comment on above: Performed By: #### L 500.2500, L100.0100, L501.3620 ####[facility] [address] [place], [address] Nucleated RBC (Bld) [#/Vol] 0 10*3/uL Normal 0-5 [facility] Comment on above: Performed By: #### L 500.2500, L100.0100, L501.3620 ####[facility] [address] [place], [address] Platelet mean volume (Bld) [Entitic vol] 11.3 fL Normal 6.2-12.0 [facility] Comment on above: Performed By: #### L 500.2500, L100.0100, L501.3620 ####[facility] [address] [place], [address] Platelets (Bld) [#/Vol] 216 10*3/uL Normal 150-450 [facility] Comment on above: Performed By: #### L 500.2500, L100.0100, L501.3620 ####[facility] [address] [place], [address] RBC (Bld) [#/Vol] 3.07 10*6/uL Low 4.2-5.4 [facility] Comment on above: Performed By: #### L 500.2500, L100.0100, L501.3620 ####[facility] [address] [place], [address] RDW SD 45.6 fl High 35.1-43.9 [facility] Comment on above: Performed By: #### L 500.2500, L100.0100, L501.3620 ####[facility] [address] [place], [address] WBC (Bld) [#/Vol] 14.7 10*3/uL High 4.4-11.0 [facility] Comment on above: Performed By: #### L 500.2500, L100.0100, L501.3620 ####[facility] [address] [place], [address] CPK Total, Creatine Kinaseon 03-07-2025 CPK TOTAL 837 U/L High 24-195 [facility] Comment on above: Performed By: #### L 500.2500, L100.0100, L501.3620 ####[facility] [address] [place], [address] Carbon dioxide, total [Moles /volume] in Central venous bloodOrdered By: Megan Anderson on 03-07-2025 CO2 [Moles/Vol] 16.8 mmol/L Low 21.0-32.0 [facility] Chest 1 View (Portable)on Chest 1 View (Portable) Normal [facility] Chloride assayOrdered By: Teri Anderson on 03-07-2025 Chloride [Moles/Vol] 105 mmol/L 98-108 [facility] Emergency Department Summary on 03-07-2025 Emergency Department Summary Normal [facility] Eosinophil percentageOrdered By: Megan Anderson on 03-07-2025 Eosinophils/100 WBC (Bld) 0.4 % 0-5 [facility] Epithelial cells.squamous LM Ql (Urine sed)Ordered By: Megan Anderson on 03-07-2025 Epithelial cells.squamous LM.HPF (Urine sed) [#/Area] 0 /[HPF] 5-10 [facility] Erythrocyte distribution wid th (RBC) [Ratio]Ordered By: Megan Anderson on 03-07-2025 Erythrocyte distribution width (RBC) [Entitic vol] 45.6 fL High 35.1-43.9 [facility] Erythrocyte distribution wid th ratioOrdered By: Megan Anderson on 03-07-2025 Erythrocyte distribution width (RBC) [Ratio] 14.5 % 11.6-14.6 [facility] Estimation of creatinine chirag aranceOrdered By: Megan Anderson on 03-07-2025 Estimated Creatinine Clearance Calc 20.75 ml/min Low 50-250 [facility] GFR/1.73 sq M.predicted sadia g non-blacks MDRD (S/P/Bld) [Vol rate/Area]Ordered By: Megan Anderson on 03-07-2025 Estimated GFR (MDRD) Non-Af Amer 19 Low >60 [facility] Comment on above: mL/min/1.73m2 CKD-EP I Creatinine Equation (2020) Glucose Ql (U)Ordered By: Teri Anderson on 03-07-2025 Urine Glucose (UA) Normal mg/dl Normal [facility] H AND P Exam - Hospitaliston 03-07-2025 H&P Exam - Hospitalist Normal [facility] HH, Hemoglobin AND Hematocri ton 03-07-2025 Hematocrit (Bld) [Volume fraction] 25.0 % Low 37-47 [facility] Comment on above: Performed By: #### L 100.0600 ####[facility] [address] [place], [address] Hemoglobin (Bld) [Mass/Vol] 8.3 g/dL Low 12.0-15.0 [facility] Comment on above: Performed By: #### L 100.0600 ####[facility] [address] [place], [id number] HIP, UNI W/ Pelvis 2-3 Views on 03-07-2025 HIP, UNI W/ Pelvis 2-3 Views Normal [facility] Hematocrit Auto (Bld) [Volum e fraction]Ordered By: Megan Anderson on 03-07-2025 Hematocrit (Bld) [Volume fraction] 27.2 % Low 37-47 [facility] Hemoglobin measurementOrdere d By: Megan Anderson on 03-07-2025 Hemoglobin (Bld) [Mass/Vol] 8.7 g/dL Low 12.0-15.0 [facility] Immature granulocytes/100 WB C Auto (Bld)Ordered By: Megan Anderson on 03-07-2025 Immature granulocytes/100 WBC (Bld) 1.000 % High 0.0-0.9 [facility] Comment on above: IG% - Immature Granu locytes (promyelocytes, myelocytes and metamyelocytes) > 1% indicates that a LEFT SHIFT is Present. Ketones Test strip Ql (U)Ord ered By: Megan Anderson on 03-07-2025 Ketones Ql (U) 5 mg/dl High Negative [facility] Liver Profileon 03-07-2025 Albumin [Mass/Vol] 3.1 g/dL Low 3.4-4.8 [facility] Comment on above: Order Comment: Comme nts: May add to ED labsComments: may add to ED labs Performed By: #### L 501.5200, L501.2300, L500.3400 ####[facility] [address] [place], [address] ALK PHOS 66 U/L Normal 35-104 [facility] Comment on above: Order Comment: Comme nts: May add to ED labsComments: may add to ED labs Performed By: #### L 501.5200, L501.2300, L500.3400 ####[facility] [address] [place], [address] ALT [Catalytic activity/Vol] 60 U/L High <=34 [facility] Comment on above: Order Comment: Comme nts: May add to ED labsComments: may add to ED labs Performed By: #### L 501.5200, L501.2300, L500.3400 ####[facility] [address] [place], [address] AST [Catalytic activity/Vol] 52 U/L High <=31 [facility] Comment on above: Order Comment: Comme nts: May add to ED labsComments: may add to ED labs Performed By: #### L 501.5200, L501.2300, L500.3400 ####[facility] [address] [place], [address] Bilirubin [Mass/Vol] 0.42 mg/dL Normal 0.00-1.30 [facility] Comment on above: Order Comment: Comme nts: May add to ED labsComments: may add to ED labs Performed By: #### L 501.5200, L501.2300, L500.3400 ####[facility] [address] [place], [address] Bilirubin.direct [Mass/Vol] 0.25 mg/dL Normal 0.00-0.30 [facility] Comment on above: Order Comment: Comme nts: May add to ED labsComments: may add to ED labs Performed By: #### L 501.5200, L501.2300, L500.3400 ####[facility] [address] [place], [address] Globulin (S) [Mass/Vol] 2.8 g/dL Normal 2.2-4.2 [facility] Comment on above: Order Comment: Comme nts: May add to ED labsComments: may add to ED labs Performed By: #### L 501.5200, L501.2300, L500.3400 ####[facility] [address] [place], [address] T PROT 5.9 g/dL Normal 5.9-8.4 [facility] Comment on above: Order Comment: Comme nts: May add to ED labsComments: may add to ED labs Performed By: #### L 501.5200, L501.2300, L500.3400 ####[facility] [address] [place], [address] Lower GI hemoglobin IA Ql (S tl)Ordered By: Megan Anderson on 03-07-2025 Stool Occult Blood (ERICA) Positive Abnormal [facility] Lymphocytes Auto (Unsp spec) [#/Vol]Ordered By: Megan Anderson on 03-07-2025 Lymphocytes (Bld) [#/Vol] 0.76 10*3/uL Low 0.83-4.51 [facility] Lymphocytes/100 WBC Auto (Un sp spec)Ordered By: Megan Anderson on 03-07-2025 Lymphocytes/100 WBC (Bld) 5.2 % Low 19-41 [facility] MCV (mean corpuscular volume ) determinationOrdered By: Megan Anderson on 03-07-2025 MCV (RBC) [Entitic vol] 88.6 fL 81-99 [facility] Magnesiumon 03-07-2025 Magnesium [Mass/Vol] 2.9 mg/dL High 1.5-2.2 [facility] Comment on above: Order Comment: Comme nts: May add to ED labsComments: may add to ED labs Performed By: #### L 501.5200, L501.2300, L500.3400 ####[facility] [address] [place], [address] Magnesium measurement (mass/ volume)Ordered By: Maddie Merchant on 03-07-2025 Magnesium (Unsp spec) [Mass/Vol] 2.9 mg/dL High 1.5-2.2 [facility] Mean corpuscular hemoglobin (MCH) determinationOrdered By: Megan Anderson on 03-07-2025 MCH (RBC) [Entitic mass] 28.3 pg 27.0-32.0 [facility] Mean corpuscular hemoglobin concentration (MCHC) determinationOrdered By: Megan Anderson on 03-07-2025 MCHC (RBC) [Mass/Vol] 32.0 g/dL 32-36 [facility] Mean platelet volume determi nationOrdered By: Megan Anderson on 03-07-2025 Platelet mean volume (Bld) [Entitic vol] 11.3 fL 6.2-12.0 [facility] Microscopic analysis of urin e for red blood cells (RBC)Ordered By: Megan Anderson on 03-07-2025 Microscopic analysis of urine for red blood cells (RBC) 0 SEEN /hpf 0-5 [facility] Urine RBC 0 SEEN /hpf 0-5 [facility] Monocyte percentageOrdered B y: Megan Anderson on 03-07-2025 Monocytes/100 WBC (Bld) 5.3 % 0-10 [facility] Mucus LM Ql (Urine sed)Order ed By: Megan Anderson on 03-07-2025 Mucus Ql (Urine sed) 0 SEEN /hpf [facility] Neutrophil percentageOrdered By: Megan Anderson on 03-07-2025 Neutrophils/100 WBC (Bld) 87.8 % High 47-70 [facility] Nitrite Test strip Ql (U)Ord ered By: Megan Anderson on 03-07-2025 Nitrite Ql (U) Positive High Negative [facility] Nucleated red blood cell per centageOrdered By: eMgan Anderson on 03-07-2025 Nucleated RBC/100 WBC (Bld) [Ratio] 0 % 0-5 [facility] Phosphoruson 03-07-2025 Phosphate [Mass/Vol] 5.0 mg/dL High 2.7-4.5 [facility] Comment on above: Order Comment: Comme nts: May add to ED labsComments: may add to ED labs Performed By: #### L 501.5200, L501.2300, L500.3400 ####[facility] [address] [place], [address] Platelet countOrdered By: Teri Anderson on 03-07-2025 Platelets (Bld) [#/Vol] 216 10*3/uL 150-450 [facility] Potassium (Unsp spec) [Mass/ Vol]Ordered By: Megan Anderson on 03-07-2025 Potassium [Moles/Vol] 4.5 mmol/L 3.3-5.1 [facility] Protein Test strip Ql (U)Ord ered By: Megan Anderson on 03-07-2025 Protein Ql (U) 30 mg/dl High Negative [facility] RBC Auto (Bld) [#/Vol]Ordere d By: Megan Anderson on 03-07-2025 RBC (Bld) [#/Vol] 3.07 10*6/uL Low 4.2-5.4 [facility] Serum creatinine measurement (mass/volume)Ordered By: Megan Anderson on 03-07-2025 Creatinine [Mass/Vol] 2.54 mg/dL High 0.70-1.20 [facility] Serum glucose measurement (m ass/volume)Ordered By: Megan Anderson on 03-07-2025 Glucose [Mass/Vol] 178 mg/dL High 70-99 [facility] Serum or plasma calcium natalia urement (mass/volume)Ordered By: Megan Anderson on 03-07-2025 Calcium [Mass/Vol] 8.8 mg/dL 7.6-11.0 [facility] Serum or plasma creatine kin ase activityOrdered By: Megan Anderson on 03-07-2025 CK [Catalytic activity/Vol] 837 U/L High 24-195 [facility] Serum or plasma urea nitroge n measurement (mass/volume)Ordered By: Megan Anderson on 03-07-2025 Urea nitrogen [Mass/Vol] 130 mg/dL High 4-19 [facility] Comment on above: Critical Result(s) C alled at: by: Results read back by same.Critical Result(s) Called ACOLE at: 1532 by: CHRISTIN Results read back by same. Sodium levelOrdered By: Megan Anderson on 03-07-2025 Sodium [Moles/Vol] 140 mmol/L 133-145 [facility] Squamous epithelial cells de tection in urine sediment by light microscopyOrdered By: Megan Anderson on 03-07-2025 Epithelial cells.squamous LM Ql (Urine sed) 0 SEEN /hpf 5-10 [facility] Stool Occult Blood iFOBon STOB Positive Normal [facility] Comment on above: Performed By: #### M 100.7900 ####[facility] [address] [place], [address] Stool gastrointestinal hemog lobin detection by immunologic methodOrdered By: Megan Anderson on 03-07-2025 Lower GI hemoglobin IA Ql (Stl) Positive Abnormal [facility] Type AND Screenon 03-07-2025 ABO and Rh group Nom (Bld) Blood group A Rh(D) positive Normal [facility] Comment on above: Order Comment: HGI Performed By: #### B TS ####[facility] [address] [place], [address] Urinalysis, Completeon 03-07 BACTERIA 1+ /hpf Normal None Seen [facility] Comment on above: Order Comment: COLLE CTOR TO SPECIFY Performed By: #### L 400.0001 ####[facility] [address] [place], [address] WBC >100 SEEN Normal 0-5 [facility] Comment on above: Order Comment: COLLE CTOR TO SPECIFY Performed By: #### L 400.0001 ####[facility] [address] [place], [address] EPI,SQUAMOUS 0 SEEN Normal 5-10 [facility] Comment on above: Order Comment: COLLE CTOR TO SPECIFY Performed By: #### L 400.0001 ####[facility] [address] [place], [address] Mucus Ql (Urine sed) 0 SEEN Normal [facility] Comment on above: Order Comment: COLLE CTOR TO SPECIFY Performed By: #### L 400.0001 ####[facility] [address] [place], [place], [address] RBC 0 SEEN Normal 0-5 [facility] Comment on above: Order Comment: CORRIE CTOR TO SPECIFY Performed By: #### L 400.0001 ####[facility] [address] [place], [place], [id number] Urine blood detectionOrdered By: Megan Anderson on 03-07-2025 Urine Occult Blood 150 /ul High Negative [facility] Urine clarityOrdered By: Carmen Anderson on 03-07-2025 Clarity (U) Cloudy Clear [facility] Urine color determinationOrd ered By: Megan Anderson on 03-07-2025 Color (U) Yellow Yellow [facility] Urine cultureOrdered By: Mervin Becker on 03-07-2025 Bacteria identified Cx Nom (U) Klebsiella oxytoca Abnormal [facility] Urine glucose detectionOrder ed By: Megan Anderson on 03-07-2025 Glucose Ql (U) Normal mg/dl Normal [facility] Urine leukocyte esterase det ection by dipstickOrdered By: Megan Anderson on 03-07-2025 Leukocyte esterase Test strip Ql (U) 500 /ul High Negative [facility] Urine pHOrdered By: Megan louis on 03-07-2025 pH (U) 6.0 [pH] 5.0 - 8.0 [facility] Urine sediment bacteria coun t by microscopy (number/high power field)Ordered By: Megan Anderson on 03-07-2025 Bacteria LM.HPF (Urine sed) [#/Area] 1 /[HPF] None Seen [facility] Urine specific gravity measu rementOrdered By: Megan Anderson on 03-07-2025 Specific gravity (U) [Rel density] 1.015 1.002-1.030 [facility] Urine urobilinogen measureme ntOrdered By: Megan Anderson on 03-07-2025 Urobilinogen Ql (U) Normal mg/dl Normal [facility] Urobilinogen Ql (U)Ordered B y: Megan Anderson on 03-07-2025 Urine Urobilinogen Normal mg/dl Normal [facility] White blood cell (WBC) count Ordered By: Megan Anderson on 03-07-2025 WBC (Bld) [#/Vol] 14.7 10*3/uL High 4.4-11.0 [facility] White blood cell countOrdere d By: Megan Anderson on 03-07-2025 Urine WBC >100 SEEN /hpf 0-5 [facility] White blood cell count >100 SEEN /hpf 0-5 [facility] Culture, Anaerobic Any Sourc adonis 2025 CUAN Normal [facility] Comment on above: Performed By: #### M 100.2000, M100.3000, M100.4001 ####[facility] [address] [place], [address] Wound Cultureon 02-28-2025 WC Normal [facility] Comment on above: Performed By: #### M 100.2000, M100.3000, M100.4001 ####[facility] [address] [place], [address] Gram Stainon 02-27-2025 GS LEFT FOOT WOUND GRAM STAIN Gram Stain No Epithelial cells 1+ Gram positive cocci 1+ White Blood Cells Normal [facility] Comment on above: Performed By: #### M 100.2000, M100.3000, M100.4001 ####[facility] [address] [place], [address] Anaerobic cultureOrdered By: Patel Irene on 02-26-2025 Bacteria identified Anaer cx Nom (Unsp spec) Anaerobic cocci Abnormal [facility] Bacteria identified Anaer cx Nom (Unsp spec)Ordered By: Patel Irene on 02-26-2025 Anaerobic Culture Anaerobic cocci Abnormal [facility] Gram stainOrdered By: Keri Irene on 02-26-2025 Microscopic observation Gram stain Nom (Unsp spec) [facility] Routine wound cultureOrdered By: Patel Irene on 02-26-2025 Microbial culture, routine Meth. resistant Staph. aureus Abnormal [facility] Wound Culture Meth. resistant Stap h. aureus Abnormal [facility] Wound Cultureon 02-19-2025 WC Normal [facility] Comment on above: Performed By: #### M 100.1999, .2999 ####[facility] [address] [place], [address] Gram Stainon 02-17-2025 GS Gram Stain No White Blood Cells No organisms seen Normal [facility] Comment on above: Performed By: #### M 100.1999, .2999 ####[facility] [address] [place], [address] Decalcification bone/plaqueo n 02-16-2025 Decalcification bone/plaque Normal [facility] Comment on above: Performed By: #### P DEC ####[facility] [address] [place], [address] Gram stainOrdered By: Rishi Vasquez on 02-16-2025 Microscopic observation Gram stain Nom (Unsp spec) [facility] Routine wound cultureOrdered By: Rishi Vasquez on 02-16-2025 Microbial culture, routine Meth. resistant Staph. aureus Abnormal [facility] Wound Culture Meth. resistant Stap h. aureus Abnormal [facility] Wound Culture Negative Abnormal [facility] Wound Cultureon 02-06-2025 WC Normal [facility] Comment on above: Performed By: #### M 100.2999, ####[facility] [address] [place], [address] Gram Stainon 02-04-2025 GS Positive Normal [facility] Comment on above: Performed By: #### M 100.2999, ####[facility] [address] [place], [address] Gram stainOrdered By: Rishi Vasquez on 02-03-2025 Microscopic observation Gram stain Nom (Unsp spec) [facility] Routine wound cultureOrdered By: Rishi Vasquez on 02-03-2025 Microbial culture, routine Meth. resistant Staph. aureus Abnormal [facility] Wound Culture Meth. resistant Stap h. aureus Abnormal [facility] Lower Ext Art Exam w/o Exerc kris 01-06-2025 Lower Ext Art Exam w/o Exercis Normal [facility] Culture, Anaerobic Any Sourc adonis 01-03-2025 CUAN ONLY AN AEROBIC SWAB WAS RECEIVED FOR CULTURE. GROWTH OF ANAEROBES MAY BE INHIBITED. No anaerobic bacteria isolated. Normal [facility] Comment on above: Performed By: #### M 100.4001, M1.1999, M100.3000 ####[facility] [address] [place], [address] Wound Cultureon 01-02-2025 WC Normal [facility] Comment on above: Performed By: #### M 100.4001, M100.1999, M100.3000 ####[facility] [address] [place], [address] Anaerobic cultureOrdered By: Patel Irene on 12-31-2024 Bacteria identified Anaer cx Nom (Unsp spec) No anaerobic bacteria isolated. [facility] Bacteria identified Anaer cx Nom (Unsp spec)Ordered By: Patel Irene on 12-31-2024 Anaerobic Culture No anaerobic bacteri a isolated. [facility] Gram Stainon 12-31-2024 GS ONLY AN AEROBIC SWAB WAS RECEIVED FOR CULTURE. GROWTH OF ANAEROBES MAY BE INHIBITED. Gram Stain 2+ Gram positive cocci 2+ Red Blood Cells Normal [facility] Comment on above: Performed By: #### M 100.4001, M100.1999, M100.3000 ####[facility] [address] [place], [address] Gram stainOrdered By: Keri Irene on 12-31-2024 Microscopic observation Gram stain Nom (Unsp spec) [facility] Routine wound cultureOrdered By: Patel Irene on 12-31-2024 Microbial culture, routine Meth. resistant Staph. aureus Abnormal [facility] Wound Culture Meth. resistant Stap h. aureus Abnormal [facility] [id number] 12-24-2024 [facility] Misc. COMMENT Normal . [facility] Comment on above: Order Comment: 18710 1WOUND CULTURE Result Comment: Test Ordered: [id number] Anaerobic/Aerobic/Gram StainAnaerobic Culture Note: Final report Reference [...] cephalosporins, clindamycin,and trimethoprim-sulfamethoxazole are not effectiveclinically. (CLSI, W056-I96, 2016)Light growthEnterococci susceptible to penicillin are predictablysusceptible to ampicillin, amoxicillin, ampicillin-sulbactam, amoxicillin-clavulanate, and piperacillin-tazobactam for nyz-puxr-lfxginghi producing enterococci.(CLSI 2018)Antimicrobial Susceptibility Comment CB Reference [...] organisms seen Reference Range: .Performed at: - Lab[address] [id number] Director: Chele Santoyo PhD, Phone: [phone] Performed By: #### L 3410.9998 ####[facility] [address] [place], [place], [address] CNOVon 12-05-2024 CNOV Office Visit (FAMPWS ) -------- GELY NEWMAN ([id number]) 1950 F Date Time Provider Department 12/05/24 9:00 [facility] today, we recorded [...] Seeing Dr. Franco for pain mgmt at [facility] and she is now taking Lyrica [...] mellitus (HCC) Coronary artery disease Dr. 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 Ortiz [facility] [place]-03/25/2020 left mild, right moderate Multiple thyroid nodules last US 01/2015 Peripheral artery disease (HCC) due to Diabetes mellitus, Dr. Kwaku Moscoso Rotator cuff syndrome of left shoulder Dr. Deluna [facility] PAST SURGICAL HISTORY Procedure Laterality Date AMPUTATION [...] 04-08-13 ROTATOR CUFF REPAIR 03/11[facility]14 [facility]D ABDL PEL/LXTR ART BRNCH 06-07-16 APLL Social History Tobacco Use Smoking status: Former Current packs/day: 0.00 Average packs/day: 0.5 packs/day for 45.0 years (22.5 ttl pk-yrs) Types: Cigarettes Start date: 12/20/1967 Quit date: 12/20/2012 Years since quittin.9 Smokeless tobacco: Never Substance Use Topics Alcohol use: No Drug use: No FAMILY H (more content not included)... Normal [facility] 25(OH)D3 [facility] 25-hydroxyvitamin D3 [Mass/Vol] 62.6 ng/mL Normal 31.0-80.0 [facility] Comment on above: Order Comment: Speci men Type: BLOOD SPECIMEN [facility] Address: [address] [place] [address] Result Comment: Clas sification of 25 [place] Vitamin D status: Deficiency/Insufficiency: < or = 30 ng/ml. Sufficiency/Optimal Levels: 31-80 ng/mL Toxicity: > 100 ng/mL. Test performed by chemiluminescent immunoassay. Performed By: #### 2 132-9 #### [facility] CLIA [id number] [address] [place] [address] [place] [address] [place] CBC panel Auto (Bld)on 12-01 Erythrocyte distribution width (RBC) [Ratio] 12.5 % Normal 11.5-15.0 [facility] Comment on above: Order Comment: Speci men Type: BLOOD SPECIMENOrdering Facility: [facility] Address: [address] [place] [address] Performed By: #### 5 8410-2 ####[facility] LABCLIA [id number] [place] [address] [place] Hematocrit (Bld) [Volume fraction] 37.8 % Normal 36.0-46.0 [facility] Comment on above: Order Comment: Speci men Type: BLOOD SPECIMENOrdering Facility: [facility] Address: [address] [place] [address] Performed By: #### 5 8410-2 ####[facility] LABIA [id number] [place] [address] [place] Hemoglobin (Bld) [Mass/Vol] 12.1 g/dL Normal 11.5-15.5 [facility] Comment on above: Order Comment: Speci men Type: BLOOD SPECIMENOrdering Facility: [facility] Address: [address] [place] [address] Performed By: #### 5 8410-2 ####[facility] LABIA [id number] [place] [address] [place] MCH (RBC) [Entitic mass] 31.2 pg Normal 26.0-34.0 [facility] Comment on above: Order Comment: Speci men Type: BLOOD SPECIMENOrdering Facility: [facility] Address: [address] [place] [address] Performed By: #### 5 8410-2 ####[facility] LABCLIA [id number] [place] [address] [place] MCHC (RBC) [Mass/Vol] 32.0 g/dL Normal 30.5-36.0 [facility] Comment on above: Order Comment: Speci men Type: BLOOD SPECIMENOrdering Facility: [facility] Address: [address] [place] [address] Performed By: #### 5 8410-2 ####[facility] [id number] [place] [address] [place] MCV (RBC) [Entitic vol] 97.4 fL Normal 80.0-100.0 [facility] Comment on above: Order Comment: Speci men Type: BLOOD SPECIMENOrdering Facility: [facility] Address: [address] [place] [address] Performed By: #### 5 8410-2 ####[facility] [id number] [place] [address] [place] Nucleated RBC (Bld) [#/Vol] 10*3/uL Normal <0.01 [facility] Comment on above: Order Comment: Speci men Type: BLOOD SPECIMENOrdering Facility: [facility] Address: [address] [place] [address] Performed By: #### 5 8410-2 ####[facility] [id number] [place] [address] [place] Platelet mean volume (Bld) [Entitic vol] 12.3 fL Normal 9.0-12.7 [facility] Comment on above: Order Comment: Speci men Type: BLOOD SPECIMENOrdering Facility: [facility] Address: [address] [place] [address] Performed By: #### 5 8410-2 ####[facility] LABIA [id number] [place] [address] [place] Platelets (Bld) [#/Vol] 160 10*3/uL Normal 150-400 [facility] Comment on above: Order Comment: Speci men Type: BLOOD SPECIMENOrdering Facility: [facility] Address: [address] [place] [address] Performed By: #### 5 8410-2 ####[facility] LABIA [id number] [address] [address] [place] RBC (Bld) [#/Vol] 3.88 10*6/uL Low 3.90-5.20 [facility] Comment on above: Order Comment: Speci men Type: BLOOD SPECIMENOrdering Facility: [facility] Address: [address] [place] [address] Performed By: #### 5 8410-2 ####[facility] LABIA [id number] [place] [address] [place] WBC (Bld) [#/Vol] 5.99 10*3/uL Normal 3.70-11.00 [facility] Comment on above: Order Comment: Speci men Type: BLOOD SPECIMENOrdering Facility: [facility] Address: [address] [place] [address] Performed By: #### 5 8410-2 ####[facility] [id number] [place] [address] [place] Comprehensive metabolic 2000 panelon 12-01-2024 Albumin [Mass/Vol] 4.0 g/dL Normal 3.9-4.9 [facility] Comment on above: Order Comment: Speci men Type: BLOOD SPECIMENOrdering Facility: [facility] Address: [address] [place] [address] Performed By: #### 2 4323-8, 3024-7, 20729-3, 3016-3 ####[facility] [id number] [place] [address] [place] ALP [Catalytic activity/Vol] 67 U/L Normal 34-123 [facility] Comment on above: Order Comment: Speci men Type: BLOOD SPECIMENOrdering Facility: [facility] Address: [address] [place] [address] Performed By: #### 2 4323-8, 3024-7, 63593-1, 3016-3 ####[facility] LABCLIA [id number] [address] [address] [place] ALT [Catalytic activity/Vol] 19 U/L Normal 7-38 [facility] Comment on above: Order Comment: Speci men Type: BLOOD SPECIMENOrdering Facility: [facility] Address: [address] [place] [address] Performed By: #### 2 4323-8, 3024-7, 23184-9, 3016-3 ####[facility] LABCLIA [id number] [address] [address] [place] Anion gap [Moles/Vol] 16 mmol/L High 8-15 [facility] Comment on above: Order Comment: Speci men Type: BLOOD SPECIMENOrdering Facility: [facility] Address: [address] [place] [address] Performed By: #### 2 4323-8, 3024-7, 86736-0, 6-3 ####[facility] LABCLIA [id number] [address] [address] [place] AST [Catalytic activity/Vol] 31 U/L Normal 13-35 [facility] Comment on above: Order Comment: Speci men Type: BLOOD SPECIMENOrdering Facility: [facility] Address: [address] [place] [address] Performed By: #### 2 4323-8, 3024-7, 04736-1, 6-3 ####[facility] LABCLIA [id number] [address] [address] [place] Bilirubin [Mass/Vol] 0.4 mg/dL Normal 0.2-1.3 [facility] Comment on above: Order Comment: Speci men Type: BLOOD SPECIMENOrdering Facility: [facility] Address: [address] [place] [address] Performed By: #### 2 4323-8, 3024-7, 34016-5, 3016-3 ####[facility] LABCLIA [id number] [address] [address] [place] Calcium [Mass/Vol] 10.0 mg/dL Normal 8.5-10.2 [facility] Comment on above: Order Comment: Speci men Type: BLOOD SPECIMENOrdering Facility: [facility] Address: [address] [place] [address] Performed By: #### 2 4323-8, 3024-7, 05164-1, 3016-3 ####[facility] LABCLIA [id number] [address] [address] [place] Chloride [Moles/Vol] 108 mmol/L High 98-107 [facility] Comment on above: Order Comment: Speci men Type: BLOOD SPECIMENOrdering Facility: [facility] Address: [address] [place] [address] Performed By: #### 2 4323-8, 3024-7, 37948-2, 6-3 ####[facility] LABIA [id number] [address] [address] [place] CO2 [Moles/Vol] 20 mmol/L Low 22-30 [facility] Comment on above: Order Comment: Speci men Type: BLOOD SPECIMENOrdering Facility: [facility] Address: [address] [place] [address] Performed By: #### 2 4323-8, 3024-7, 92702-5, 6-3 ####[facility] LABCLIA [id number] [address] [address] [place] Creatinine [Mass/Vol] 1.11 mg/dL High 0.58-0.96 [facility] Comment on above: Order Comment: Speci men Type: BLOOD SPECIMENOrdering Facility: [facility] Address: [address] [place] [address] Performed By: #### 2 4323-8, 3024-7, 16079-8, 3016-3 ####[facility] LABCLIA [id number] [place] [address] [place] Creatinine and Glomerular filtration rate.predicted panel (S/P/Bld) 53 mL/min/1.73m??? Low >=60 [facility] Comment on above: Order Comment: Johana jarvis Type: BLOOD SPECIMENOrdering Facility: [facility] Address: [address] [place] [address] Result Comment: Elena mated Glomerular Filtration Rate [...] GFR. Performed By: #### 2 4323-8, 3024-7, 97305-9, 3016-3 ####[facility] LABCLIA [id number] [place] [address] [place] Glucose [Mass/Vol] 79 mg/dL Normal 74-99 [facility] Comment on above: Order Comment: Johana jarvis Type: BLOOD SPECIMENOrdering Facility: [facility] Address: [address] [place] [address] Result Comment: The [place] Diabetes Association (ADA) provides guidance for [...] Standards of Medical Care in Diabetes 2016, [place] [employer] Association. Diabetes Care. 2016.39(Suppl 1). Performed By: #### 2 4323-8, 3024-7, 31008-1, 3016-3 ####[facility] LABCLIA [id number] [address] [address] [place] Potassium [Moles/Vol] 4.3 mmol/L Normal 3.7-5.1 [facility] Comment on above: Order Comment: Speci men Type: BLOOD SPECIMENOrdering Facility: [facility] Address: [address] [place] [address] Performed By: #### 2 4323-8, 3024-7, 64357-1, 3016-3 ####[facility] LABIA [id number] [address] [address] [place] Protein [Mass/Vol] 6.6 g/dL Normal 6.3-8.0 [facility] Comment on above: Order Comment: Speci men Type: BLOOD SPECIMENOrdering Facility: [facility] Address: [address] [place] [address] Performed By: #### 2 4323-8, 3024-7, 81612-6, 6-3 ####[facility] [id number] [place] [address] [place] Sodium [Moles/Vol] 144 mmol/L Normal 136-144 [facility] Comment on above: Order Comment: Speci men Type: BLOOD SPECIMENOrdering Facility: [facility] Address: [address] [place] [address] Performed By: #### 2 4323-8, 3024-7, 00750-9, 6-3 ####[facility] LABIA [id number] [address] [address] [place] Urea nitrogen [Mass/Vol] 51 mg/dL High 7-21 [facility] Comment on above: Order Comment: Speci men Type: BLOOD SPECIMENOrdering Facility: [facility] Address: [address] [place] [address] Performed By: #### 2 4323-8, 3024-7, 05065-8, 3016-3 ####[facility] LABCLIA [id number] [place] [address] [place] HbA1c (Bld)on 12-01-2024 Average glucose Estimated from glycated hemoglobin (Bld) [Mass/Vol] 126 mg/dL Normal [facility] Comment on above: Order Comment: Johana ajrvis Type: BLOOD SPECIMEN [facility] Address: [address] [place] [address] Result Comment: eAG: (Estimated average glucose) is a calculated value from HgbA1c and is motor vehicle representative of the average blood glucose level in the last 2-3 month period. Performed By: #### 5 5454-3 #### [facility] CLIA [id number] [address] [place] [address] [place] [facility] HbA1c (Bld) [Mass fraction] 6.0 % High 4.3-5.6 [facility] Comment on above: Order Comment: Johana jarvis Type: BLOOD SPECIMEN [facility] Address: [address] [place] [address] Result Comment: [place] Diabetes Association guidelines indicate that patients with HgbA1c in the range 5.7-6.4% are at increased risk for development of diabetes, and intervention by lifestyle modification may be beneficial. HgbA1c greater or equal to 6.5% is considered diagnostic of diabetes. Performed By: #### 5 5454-3 #### [facility] CLIA [id number] [address] [place] [address] [place] Lipid 1996 panelon 5 Cholesterol [Mass/Vol] 138 mg/dL Normal <200 [facility] Comment on above: Order Comment: Johana jarvis Type: BLOOD SPECIMENOrdering Facility: [facility] Address: [address] [place] [address] Result Comment: <200 mg/dL, Desirable 200-239 mg/dL, Borderline high >239 mg/dL, High Performed By: #### 2 4323-8, 3024-7, 89968-1, 3016-3 ####[facility] LABCLIA [id number] [address] [place] Cholesterol in HDL [Mass/Vol] 44 mg/dL Normal >39 [facility] Comment on above: Order Comment: Johana matheus Type: BLOOD SPECIMENOrdering Facility: [facility] Address: [address] [place] [address] Result Comment: 40-5 9 mg/dL, Acceptable >59 mg/dL, High: Negative risk factor for coronary heart disease <40 mg/dL, Low: Positive risk factor for coronary heart disease Performed By: #### 2 4323-8, 3024-7, 69538-9, 3016-3 ####[facility] LABCLIA [id number] [address] Cholesterol in LDL [Mass/Vol] 64 mg/dL Normal <100 [facility] Comment on above: Order Comment: Johana jarvis Type: BLOOD SPECIMENOrdering Facility: [facility] Address: [address] [place] [address] Result Comment: <100 mg/dL, Optimal 100-129 mg/dL, Near optimal/above optimal 130-159 mg/dL, Borderline high 160-189 mg/dL, High >189 mg/dL, Very high Secondary prevention optimal LDL Cholesterol levels are recommended to be < 70 mg/dL Performed By: #### 2 4323-8, 3024-7, 88315-7, 3016-3 ####[facility] LABIA [id number] [address] OF [facility] Cholesterol in LDL/Cholesterol in HDL [Mass ratio] 1.45 {ratio} Normal <2.54 [facility] Comment on above: Order Comment: Johana matheus Type: BLOOD SPECIMENOrdering Facility: [facility] Address: [address] [place] [address] Result Comment: Vlad oakes: 1. National Cholesterol Education Program ATP III Guideline At-A-Glance Quick Desk Reference: National Heart, Lung, and Blood [place]. National Institutes of Health. 2001: NIH Publication No. 01-3305. 2. An International Atherosclerosis Society position paper: global recommendations for the management of dyslipidemia: executive summary, Atherosclerosis. 2014: 232(2):410-413. Performed By: #### 2 4323-8, 3024-7, 27084-1, 6-3 ####[facility] LABCLIA [id number] [address] [address] [place] Cholesterol in VLDL [Mass/Vol] 30 mg/dL High <30 [facility] Comment on above: Order Comment: Speci men Type: BLOOD SPECIMENOrdering Facility: [facility] Address: [address] [place] [address] Performed By: #### 2 4323-8, 3023-7, 09212-0, 3015-3 ####[facility] LABCLIA [id number] [place] [address] [place] Cholesterol non HDL [Mass/Vol] 94 mg/dL Normal <130 [facility] Comment on above: Order Comment: Speci men Type: BLOOD SPECIMENOrdering Facility: [facility] Address: [address] [place] [address] Result Comment: <130 mg/dL, Optimal 130-159 mg/dL, Near optimal/above optimal 160-189 mg/dL, Borderline high 190-219 mg/dL, High >219 mg/dL, Very high Secondary prevention optimal non HDL Cholesterol levels are recommended to be <100 mg/dL Performed By: #### 2 4323-8, 3023-7, 19187-2, 3015-3 ####[facility] LABCLIA [id number] [address] [address] [place] Cholesterol.total/Chol esterol in HDL [Mass ratio] 3.14 {ratio} Normal <5.10 [facility] Comment on above: Order Comment: Elizabethi men Type: BLOOD SPECIMENOrdering Facility: [facility] Address: [address] [place] [id number] Performed By: #### 2 4323-8, 4-7, 39066-2, 3015-3 ####[facility] LABCLIA [id number] [place] [address] [place] FASTING TIME 14 hrs Normal [facility] Comment on above: Order Comment: Speci men Type: BLOOD SPECIMENOrdering Facility: [facility] Address: [address] [place] [address] Performed By: #### 2 4323-8, 3024-7, 90026-7, 3016-3 ####[facility] LABCLIA [id number] [place] [address] [place] Triglyceride [Mass/Vol] 151 mg/dL High <150 [facility] Comment on above: Order Comment: Speci men Type: BLOOD SPECIMENOrdering Facility: [facility] Address: [address] [place] [address] Result Comment: <150 mg/dL, Normal 150-199 mg/dL, Borderline high 200-499 mg/dL, High >499 mg/dL, Very high Performed By: #### 2 4323-8, 3024-7, 25027-8, 3016-3 ####[facility] LABCLIA [id number] [place] [address] [place] T4 Free SerPl-mCncon 025 Free T4 [Mass/Vol] 2.0 ng/dL High 0.9-1.7 [facility] Comment on above: Order Comment: Speci men Type: BLOOD SPECIMENOrdering Facility: [facility] Address: [address] [place] [address] Performed By: #### 2 4323-8, 3024-7, 66434-4, 3016-3 ####[facility] LABCLIA [id number] [place] [address] [place] TSH SerPl-aCncon 12-01-2024 TSH Qn 0.005 m[IU]/L Low 0.270-4.200 [facility] Comment on above: Order Comment: Speci men Type: BLOOD SPECIMENOrdering Facility: [facility] Address: [address] [place] [address] Performed By: #### 2 4323-8, 3024-7, 11332-8, 3016-3 ####[facility] LABCLIA [id number] [facility] [place] [address] [place] Vit B12 SerPl-ncon 01-13-2 025 Cobalamin (Vitamin B12) [Mass/Vol] 1268 pg/mL High 232-1245 [facility] Comment on above: Order Comment: Speci men Type: BLOOD SPECIMEN [facility] Address: [address] [place] [address] Performed By: #### 2 132-9 #### [facility] CLIA [id number] [address] [place] [address] [place] [address] [place] CNPNon 09-10-2024 CNPN Telephone (FAMPWS) -------- GELY NEWMAN ([id number]) 1950 F Date Time Provider Department 09/10/24 RISHI VASQUEZ [facility] During your visit today, we recorded the [...] out to provider. Requests call back at [phone] with provider response. GORGE Bo Jordan L, [...] Fully Assessed Reason for Visit: Patient Question [6267] Prescriptions as of 09/15/2024 - gabapentin (NEURONTIN) [...] 1 tablet by mouth once daily. - Qnfkxbeo-Wljv-Csp-Folic Acid 18-0.4 mg tab Take 1 tablet [...] [L72.3, L08.9] 02/26/2019 Coronary artery disease involving [place] heart *05/28/2019 Abnormal urine odor [R82.90] 05/28/2019 [...] Encounter Status:Closed by MEAGAN MARTINEZ on 09/15/24 [facility] 08-18-2024 CNPN Telephone (FAMPWS) -------- GELY NEWMAN ([id number]) 1950 F Date Time Provider Department 08/18/24 RISHI VASQUEZ [facility] During your visit today, we recorded the following information about you: Meagan Martinez MA 08/18/2024 8:48 AM Signed Pt wrote into the office via [employer] on 08/16/24 with questions regarding medications. Please [...] Fully Assessed Reason for Visit: Patient Question [6788] Cmt: Fish oil - [place] 3 Prescriptions as of 08/19/2024 - gabapentin [...] 1 tablet by mouth once daily. - Veocrqvc-Isgq-Dml-Folic Acid 18-0.4 mg tab Take 1 tablet [...] [L72.3, L08.9] 02/26/2019 Coronary artery disease involving win[place] heart *05/28/2019 Abnormal urine odor [R82.90] 05/28/2019 [...] Status:Closed by LEATHA LONG on 08/19/24 Normal [facility] CNPNon 08-08-2024 CNPN Telephone (FAMPWS) -------- GELY NEWMAN ([id number]) 1950 F Date Time Provider Department 08/08/24 [...] NAME OF THE MEDICATION IS ISCHROLBARSA. THE [employer] SAID IT IS A STEROID. WHAT [...] 1 tablet by mouth once daily. - Ifsvnvkf-Iyll-Xip-Folic Acid 18-0.4 mg tab Take 1 tablet [...] [L72.3, L08.9] 02/26/2019 Coronary artery disease involving [place] heart *05/28/2019 Abnormal urine odor [R82.90] 05/28/2019 Stage 3 chronic kidney disease (HCC) [N18.30] 12/03/2019 Fatigue [R53.83] more content not included)... Normal [facility] Pelvis (Routine)on Pelvis (Routine) Normal [facility] Shoulder min 2 Viewson 06-19 Shoulder min 2 Views Normal [facility] CNPNon 06-13-2024 [facility] -------- TRENTGELY Lawrence ([id number]) 1950 F Date Time Provider Department 06/13/24 RISHI VASQUEZPJOHNY During your visit today, we recorded the following information about you: Nasim López LPN 06/13/2024 11:19 AM Signed Needs referral faxed to [facility] for Pain Management. This has been [...] 1 tablet by mouth once daily. - Dgjthgul-Rgdj-Air-Folic Acid 18-0.4 mg tab Take 1 tablet [...] [L72.3, L08.9] 02/26/2019 Coronary artery disease involving win[place] heart *05/28/2019 Abnormal urine odor [R82.90] 05/28/2019 [...] LÓPEZ LPN on 06/13/24 Normal [facility] CNCOon 06-04-2024 CNCO HNO ID: [id number] Author: COORDINATOR, MAMMOGRAPHY, ? Service: ? Author Type: Physician Type: Letter Filed: 06/04/2024 14:01 Note Text: June 04, 2024 PID: [id number] Gely Newman [address] [place] [address] Dear Ms. Newman, We are pleased to [...] report will be kept on file at [facility] as part of your permanent medical record and are available for your continuing care. Thank you for allowing us to help in meeting your health care needs. Sincerely, Dr. 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 Ortiz [facility]-03/25/2020 left mild, right moderate Multiple thyroid nodules last US 01/2015 Peripheral artery disease (HCC) due to Diabetes mellitus, Dr. Kwaku Moscoso Rotator cuff syndrome of left shoulder Dr. Deluna [facility] PAST SURGICAL HISTORY Procedure Laterality Date AMPUTATION [...] 04-08-13 ROTATOR CUFF REPAIR 03/11/14 [facility]. [facility]D ABDL PEL/LXTR [...] Allergen React (more content not included)... Normal [facility] GELY NEWMAN ([id number]) 1950 F Date Time Provider Department 06/04/24 [facility] During your visit today, we recorded [...] 1 tablet by mouth once daily. - Itlzxriy-Rkuo-Dbb-Folic Acid 18-0.4 mg tab Take 1 tablet [...] [L72.3, L08.9] 02/26/2019 Coronary artery disease involving [place] heart *05/28/2019 Abnormal urine odor [R82.90] 05/28/2019 [...] KEISHA CORONADO on 06/04/24 Normal [facility] ALEJANDRO SCREENING W TOMOon 06-03 ALEJANDRO SCREENING W BEN * * *Final Report* * * DATE OF EXAM: Jun 03 2024 9:42AM WRW [id number] - ALEJANDRO SCREENING W BEN / PROCEDURE REASON: Encounter for screening mammogram for malignant neoplasm of breast * * * * Physician Interpretation * * * * RESULT: #[id number] - ALEJANDRO SCREENING W BEN BILATERAL DIGITAL [...] mammogram, 07/10/2023 mammogram, and 06/05/2022 mammogram - [facility]. There are scattered areas of fibroglandular density. No significant masses, calcifications, or other findings are seen in either breast. There has been no significant interval change. IMPRESSION: NEGATIVE There is no mammographic evidence of malignancy. A 1 year screening mammogram is recommended. Wil newman/penthu:06/04/2024 14:01:13 Branch Operations Manager(s): Elizabeth Sandoval, [facility] letter sent: Normal over 40 Mammogram [...] Health, Family Medicine, and Medical/Surgical Oncology, the [facility] has carefully reviewed the data and reached [...] their providers when to stop screening mammograms. Signal Operator Technical: Marcelino Transcribe Date/Time: Jun 03 2024 9:23A Dictated by: WLI MONTEIRO MD This examination was interpreted and the report reviewed and electronically signed by: WIL MONTEIRO MD on Jun 04 2024 2:01PM EST [id number] Normal [facility] 25(OH)D3 [facility] 25-hydroxyvitamin D3 [Mass/Vol] 72.8 ng/mL Normal 31.0-80.0 [facility] Comment on above: Order Comment: Speclisa jarvis Type: BLOOD SPECIMEN [facility] Address: [address] [place] [address] Result Comment: Clas sification of 25 [place] Vitamin D status: Deficiency/Insufficiency: < or = 30 ng/ml. Sufficiency/Optimal Levels: 31-80 ng/mL Toxicity: > 100 ng/mL. Test performed by chemiluminescent immunoassay. Performed By: #### 2 132-9 #### [facility] CLIA [id number] [address] [place] [address] [place] [facility] CBC W Auto Differential pane l (Bld)on 05-30-2024 Basophils (Bld) [#/Vol] 0.06 10*3/uL Normal <0.11 [facility] Comment on above: Order Comment: Johana jarvis Type: BLOOD SPECIMEN [facility] Address: [address] [place] [address] Performed By: #### 2 132-9 #### [facility] CLIA [id number] [address] [id number] [address] [place] Basophils/100 WBC (Bld) 0.8 % Normal [facility] Comment on above: Order Comment: Speci men Type: BLOOD SPECIMEN [facility] Address: [address] [place] [address] Performed By: #### 2 132-9 #### [facility] CLIA [id number] [address] [place] [address] [place] Differential cell count method Nom (Bld) Auto Normal [facility] Comment on above: Order Comment: Speci men Type: BLOOD SPECIMEN [facility] Address: [address] [place] [address] Performed By: #### 2 132-9 #### [facility] CLIA [id number] [address] [place] [address] [place] Eosinophils (Bld) [#/Vol] 0.26 10*3/uL Normal <0.46 [facility] Comment on above: Order Comment: Speci men Type: BLOOD SPECIMEN [facility] Address: [address] [place] [address] Performed By: #### 2 132-9 #### [facility] CLIA [id number] [address] [place] [address] [place] Eosinophils/100 WBC (Bld) 3.4 % Normal [facility] Comment on above: Order Comment: Speci men Type: BLOOD SPECIMEN [facility] Address: [address] [place] [address] Performed By: #### 2 132-9 #### [facility] CLIA [id number] [address] [place] [address] [place] Erythrocyte distribution width (RBC) [Ratio] 12.1 % Normal 11.5-15.0 [facility] Comment on above: Order Comment: Speci men Type: BLOOD SPECIMEN [facility] Address: [address] [place] [address] Performed By: #### 2 132-9 #### [facility] CLIA [id number] [address] [place] [address] [place] Hematocrit (Bld) [Volume fraction] 38.4 % Normal 36.0-46.0 [facility] Comment on above: Order Comment: Speci men Type: BLOOD SPECIMEN [facility] Address: [address] [place] [address] Performed By: #### 2 132-9 #### [facility] CLIA [id number] [address] [place] [address] [place] Hemoglobin (Bld) [Mass/Vol] 12.3 g/dL Normal 11.5-15.5 [facility] Comment on above: Order Comment: Speci men Type: BLOOD SPECIMEN [facility] Address: [address] [place] [address] Performed By: #### 2 132-9 #### [facility] CLIA [id number] [address] [place] [address] [place] Immature granulocytes (Bld) [#/Vol] 10*3/uL Normal <0.10 [facility] Comment on above: Order Comment: Speci men Type: BLOOD SPECIMEN [facility] Address: [address] [place] [address] Performed By: #### 2 132-9 #### [facility] CLIA [id number] [address] [place] [address] [place] Immature granulocytes/100 WBC (Bld) 0.1 % Normal [facility] Comment on above: Order Comment: Speci men Type: BLOOD SPECIMEN [facility] Address: [address] [place] [address] Performed By: #### 2 132-9 #### [facility] CLIA [id number] [address] [place] [address] [place] Lymphocytes (Bld) [#/Vol] 1.71 10*3/uL Normal 1.00-4.00 [facility] Comment on above: Order Comment: Speci men Type: BLOOD SPECIMEN [facility] Address: [address] [place] [address] Performed By: #### 2 132-9 #### [facility] CLIA [id number] [address] [place] [address] [place] Lymphocytes/100 WBC (Bld) 22.6 % Normal [facility] Comment on above: Order Comment: Speci men Type: BLOOD SPECIMEN [facility] Address: [address] [place] [address] Performed By: #### 2 132-9 #### [facility] CLIA [id number] [address] [place] [address] [place] MCH (RBC) [Entitic mass] 31.1 pg Normal 26.0-34.0 [facility] Comment on above: Order Comment: Speci men Type: BLOOD SPECIMEN [facility] Address: [address] [place] [address] Performed By: #### 2 132-9 #### [facility] CLIA [id number] [address] [place] [address] [place] MCHC (RBC) [Mass/Vol] 32.0 g/dL Normal 30.5-36.0 [facility] Comment on above: Order Comment: Speci men Type: BLOOD SPECIMEN [facility] Address: [address] [place] [address] Performed By: #### 2 132-9 #### [facility] CLIA [id number] [address] [place] [address] [place] MCV (RBC) [Entitic vol] 97.0 fL Normal 80.0-100.0 [facility] Comment on above: Order Comment: Speci men Type: BLOOD SPECIMEN [facility] Address: [address] [place] [address] Performed By: #### 2 132-9 #### [facility] CLIA [id number] [address] [place] [address] [place] Monocytes (Bld) [#/Vol] 0.68 10*3/uL Normal <0.87 [facility] Comment on above: Order Comment: Speci men Type: BLOOD SPECIMEN [facility] Address: [address] [place] [address] Performed By: #### 2 132-9 #### [facility] CLIA [id number] [address] [place] [address] [place] Monocytes/100 WBC (Bld) 9.0 % Normal [facility] Comment on above: Order Comment: Speci men Type: BLOOD SPECIMEN [facility] Address: [address] [place] [address] Performed By: #### 2 132-9 #### [facility] CLIA [id number] [address] [place] [address] [place] Neutrophils (Bld) [#/Vol] 4.86 10*3/uL Normal 1.45-7.50 [facility] Comment on above: Order Comment: Speci men Type: BLOOD SPECIMEN [facility] Address: [address] [place] [address] Performed By: #### 2 132-9 #### [facility] CLIA [id number] [address] [place] [address] [place] Neutrophils/100 WBC (Bld) 64.1 % Normal [facility] Comment on above: Order Comment: Speci men Type: BLOOD SPECIMEN [facility] Address: [address] [place] [address] Performed By: #### 2 132-9 #### [facility] CLIA [id number] [address] [place] [address] [place] Nucleated RBC (Bld) [#/Vol] 10*3/uL Normal <0.01 [facility] Comment on above: Order Comment: Speci men Type: BLOOD SPECIMEN [facility] Address: [address] [place] [address] Performed By: #### 2 132-9 #### [facility] CLIA [id number] [address] [place] [address] [place] Nucleated RBC/100 WBC (Bld) [Ratio] 0.0 /100 WBC Normal [facility] Comment on above: Order Comment: Speci men Type: BLOOD SPECIMEN [facility] Address: [address] [place] [address] Performed By: #### 2 132-9 #### [facility] CLIA [id number] [address] [place] [address] [place] Platelet mean volume (Bld) [Entitic vol] 11.3 fL Normal 9.0-12.7 [facility] Comment on above: Order Comment: Speci men Type: BLOOD SPECIMEN [facility] Address: [address] [place] [address] Performed By: #### 2 132-9 #### [facility] CLIA [id number] [address] [place] [address] [place] Platelets (Bld) [#/Vol] 191 10*3/uL Normal 150-400 [facility] Comment on above: Order Comment: Speci men Type: BLOOD SPECIMEN [facility] Address: [address] [place] [address] Performed By: #### 2 132-9 #### [facility] CLIA [id number] [address] [place] [address] [place] RBC (Bld) [#/Vol] 3.96 10*6/uL Normal 3.90-5.20 [facility] Comment on above: Order Comment: Speci men Type: BLOOD SPECIMEN [facility] Address: [address] [place] [address] Performed By: #### 2 132-9 #### [facility] CLIA [id number] [address] [place] [address] [place] WBC (Bld) [#/Vol] 7.58 10*3/uL Normal 3.70-11.00 [facility] Comment on above: Order Comment: Speci men Type: BLOOD SPECIMEN [facility] Address: [address] [place] [address] Performed By: #### 2 132-9 #### [facility] CLIA [id number] [address] [place] [address] [place] Comprehensive metabolic 2000 panelon 05-30-2024 Albumin [Mass/Vol] 4.1 g/dL Normal 3.9-4.9 [facility] Comment on above: Order Comment: Speci men Type: BLOOD SPECIMEN [facility] Address: [address] [place] [address] Performed By: #### 2 132-9 #### [facility] CLIA [id number] [address] [place] [address] [place] ALP [Catalytic activity/Vol] 62 U/L Normal 34-123 [facility] Comment on above: Order Comment: Speci men Type: BLOOD SPECIMEN [facility] Address: [address] [place] [address] Performed By: #### 2 132-9 #### [facility] CLIA [id number] [address] [place] [address] [place] ALT [Catalytic activity/Vol] 13 U/L Normal 7-38 [facility] Comment on above: Order Comment: Speci men Type: BLOOD SPECIMEN [facility] Address: [address] [place] [address] Performed By: #### 2 132-9 #### [facility] CLIA [id number] [address] [place] [address] [place] Anion gap [Moles/Vol] 12 mmol/L Normal 8-15 [facility] Comment on above: Order Comment: Speci men Type: BLOOD SPECIMEN [facility] Address: [address] [place] [address] Performed By: #### 2 132-9 #### [facility] CLIA [id number] [address] [place] [address] [place] AST [Catalytic activity/Vol] 24 U/L Normal 13-35 [facility] Comment on above: Order Comment: Speci men Type: BLOOD SPECIMEN [facility] Address: [address] [place] [address] Performed By: #### 2 132-9 #### [facility] CLIA [id number] [address] [place] [address] [place] Bilirubin [Mass/Vol] 0.4 mg/dL Normal 0.2-1.3 [facility] Comment on above: Order Comment: Speci men Type: BLOOD SPECIMEN [facility] Address: [address] [place] [address] Performed By: #### 2 132-9 #### [facility] CLIA [id number] [address] [place] [address] [place] Calcium [Mass/Vol] 10.0 mg/dL Normal 8.5-10.2 [facility] Comment on above: Order Comment: Speci men Type: BLOOD SPECIMEN [facility] Address: [address] [place] [address] Performed By: #### 2 132-9 #### [facility] CLIA [id number] [address] [place] [address] [place] Chloride [Moles/Vol] 107 mmol/L Normal 98-107 [facility] Comment on above: Order Comment: Speci men Type: BLOOD SPECIMEN [facility] Address: [address] [place] [address] Performed By: #### 2 132-9 #### [facility] CLIA [id number] [address] [place] [address] [place] CO2 [Moles/Vol] 23 mmol/L Normal 22-30 [facility] Comment on above: Order Comment: Speci men Type: BLOOD SPECIMEN [facility] Address: [address] [place] [address] Performed By: #### 2 132-9 #### [facility] CLIA [id number] [address] [place] [address] [place] Creatinine [Mass/Vol] 1.20 mg/dL High 0.58-0.96 [facility] Comment on above: Order Comment: Speci men Type: BLOOD SPECIMEN [facility] Address: [address] [place] [address] Performed By: #### 2 132-9 #### [facility] CLIA [id number] [address] [place] [address] [place] Creatinine and Glomerular filtration rate.predicted panel (S/P/Bld) 48 mL/min/1.73m??? Low >=60 [facility] Comment on above: Order Comment: Speci men Type: BLOOD SPECIMEN [facility] Address: [address] [place] [address] Result Comment: Elena mated Glomerular Filtration Rate [...] GFR. Performed By: #### 2 132-9 #### [facility] CLIA [id number] [address] [place] [address] [place] Glucose [Mass/Vol] 113 mg/dL High 74-99 [facility] Comment on above: Order Comment: Johana jarvis Type: BLOOD SPECIMEN [facility] Address: [address] [place], [place] [id number] Result Comment: The [place] [employer] (ADA) provides guidance for [...] Standards of Medical Care in Diabetes 2016, [place] [employer]. Diabetes Care. 2016.39(Suppl 1). Performed By: #### 2 132-9 #### [facility] CLIA [id number] [address] [place] [address] [place] Potassium [Moles/Vol] 4.7 mmol/L Normal 3.7-5.1 [facility] Comment on above: Order Comment: Johana jarvis Type: BLOOD SPECIMEN [facility] Address: [address] [place] [address] Performed By: #### 2 132-9 #### [facility] CLIA [id number] [address] [place] [address] [place] Protein [Mass/Vol] 6.5 g/dL Normal 6.3-8.0 [facility] Comment on above: Order Comment: Elizabethi men Type: BLOOD SPECIMEN [facility] Address: [address] [place] [address] Performed By: #### 2 132-9 #### [facility] CLIA [id number] [address] [place] [address] [place] Sodium [Moles/Vol] 142 mmol/L Normal 136-144 [facility] Comment on above: Order Comment: Speci men Type: BLOOD SPECIMEN [facility] Address: [address] [place] [address] Performed By: #### 2 132-9 #### [facility] CLIA [id number] [address] [place] [address] [place] Urea nitrogen [Mass/Vol] 38 mg/dL High 7-21 [facility] Comment on above: Order Comment: Johana jarvis Type: BLOOD SPECIMEN [facility] Address: [address] [place] [address] Performed By: #### 2 132-9 #### [facility] CLIA [id number] [address] [place] [address] [place] HbA1c (Bld)on 05-30-2024 Average glucose Estimated from glycated hemoglobin (Bld) [Mass/Vol] 131 mg/dL Normal [facility] Comment on above: Order Comment: Johana jarvis Type: BLOOD SPECIMEN [facility] Address: [address] [place] [address] Result Comment: eAG: (Estimated average glucose) is a calculated value from HgbA1c and is motor vehicle representative of the average blood glucose level in the last 2-3 month period. Performed By: #### 2 132-9 #### [facility] CLIA [id number] [address] [place] [address] [place] HbA1c (Bld) [Mass fraction] 6.2 % High 4.3-5.6 [facility] Comment on above: Order Comment: Johana jarvis Type: BLOOD SPECIMEN [facility] Address: [address] [place] [address] Result Comment: [place] Diabetes Association guidelines indicate that patients with HgbA1c in the range 5.7-6.4% are at increased risk for development of diabetes, and intervention by lifestyle modification may be beneficial. HgbA1c greater or equal to 6.5% is considered diagnostic of diabetes. Performed By: #### 2 132-9 #### [facility] CLIA [id number] [address] [place], [place] [id number] [place] Lipid 1996 panelon 4 Cholesterol [Mass/Vol] 151 mg/dL Normal <200 [facility] Comment on above: Order Comment: Speci men Type: BLOOD SPECIMEN [facility] Address: [address] [place] [address] Result Comment: <200 mg/dL, Desirable 200-239 mg/dL, Borderline high >239 mg/dL, High Performed By: #### 2 132-9 #### [facility] CLIA [id number] [address] [place] [address] [place] Cholesterol in HDL [Mass/Vol] 47 mg/dL Normal >39 [facility] Comment on above: Order Comment: Elizabethi men Type: BLOOD SPECIMEN [facility] Address: [address] [place] [address] Result Comment: 40-5 9 mg/dL, Acceptable >59 mg/dL, High: Negative risk factor for coronary heart disease <40 mg/dL, Low: Positive risk factor for coronary heart disease Performed By: #### 2 132-9 #### [facility] LAB CLIA [id number] [address] [place] [address] [place] Cholesterol in LDL [Mass/Vol] 71 mg/dL Normal <100 [facility] Comment on above: Order Comment: Speci men Type: BLOOD SPECIMEN [facility] Address: [address] [place] [address] Result Comment: <100 mg/dL, Optimal 100-129 mg/dL, Near optimal/above optimal 130-159 mg/dL, Borderline high 160-189 mg/dL, High >189 mg/dL, Very high Secondary prevention optimal LDL Cholesterol levels are recommended to be < 70 mg/dL Performed By: #### 2 132-9 #### [facility] CLIA [id number] [address] [place] [address] [place] Cholesterol in LDL/Cholesterol in HDL [Mass ratio] 1.51 {ratio} Normal <2.54 [facility] Comment on above: Order Comment: Speci men Type: BLOOD SPECIMEN [facility] Address: [address] [place] [address] Result Comment: Vlad oakes: 1. National Cholesterol Education Program ATP III Guideline At-A-Glance Quick Desk Reference: National Heart, Lung, and Blood [place]. National Institutes of Health. 2001: NIH Publication No. 01-3305. 2. An International Atherosclerosis Society position paper: global recommendations for the management of dyslipidemia: executive summary, Atherosclerosis. 2014: 232(2):410-413. Performed By: #### 2 132-9 #### [facility] CLIA [id number] [address] [place] [address] [place] Cholesterol in VLDL [Mass/Vol] 33 mg/dL High <30 [facility] Comment on above: Order Comment: Johana jarvis Type: BLOOD SPECIMEN [facility] Address: [address] [place] [address] Performed By: #### 2 132-9 #### [facility] CLIA [id number] [address] [place] [address] [place] Cholesterol non HDL [Mass/Vol] 104 mg/dL Normal <130 [facility] Comment on above: Order Comment: Johana jarvis Type: BLOOD SPECIMEN [facility] Address: [address] [place] [address] Result Comment: <130 mg/dL, Optimal 130-159 mg/dL, Near optimal/above optimal 160-189 mg/dL, Borderline high 190-219 mg/dL, High >219 mg/dL, Very high Secondary prevention optimal non HDL Cholesterol levels are recommended to be <100 mg/dL Performed By: #### 2 132-9 #### [facility] CLIA [id number] [address] [place] [address] [place] Cholesterol.total/Chol esterol in HDL [Mass ratio] 3.21 {ratio} Normal <5.10 [facility] Comment on above: Order Comment: Johana matheus Type: BLOOD SPECIMEN [facility] Address: [address] [place] [address] Performed By: #### 2 132-9 #### [facility] CLIA [id number] [address] [place] [address] [place] FASTING TIME 13 hrs Normal [facility] Comment on above: Order Comment: Speci men Type: BLOOD SPECIMEN [facility] Address: [address] [place] [address] Performed By: #### 2 132-9 #### [facility] CLIA [id number] [address] [place] [address] [place] Triglyceride [Mass/Vol] 165 mg/dL High <150 [facility] Comment on above: Order Comment: Speci men Type: BLOOD SPECIMEN [facility] Address: [address] [place] [address] Result Comment: <150 mg/dL, Normal 150-199 mg/dL, Borderline high 200-499 mg/dL, High >499 mg/dL, Very high Performed By: #### 2 132-9 #### [facility] CLIA [id number] [address] [place] [address] [place] T3Free SerPl-mCncon 05-30-20 24 Free T3 [Mass/Vol] 3.7 pg/mL Normal 2.3-4.1 [facility] Comment on above: Order Comment: Speci men Type: BLOOD SPECIMEN [facility] Address: [address] [place] [address] Performed By: #### 2 132-9 #### [facility] CLIA [id number] [address] [place] [address] [place] T4 Free SerPl-mCncon 024 Free T4 [Mass/Vol] 2.0 ng/dL High 0.9-1.7 [facility] Comment on above: Order Comment: Speci men Type: BLOOD SPECIMENOrdering Facility: [facility] Address: [address] [place] [address] Performed By: #### 3 024-7, 03092-9, 3051-0, 25990-3 ####[facility] [id number] [facility] [place] [address] [place] TSH SerPl-aCncon 05-30-2024 TSH Qn 0.007 m[IU]/L Low 0.270-4.200 [facility] Comment on above: Order Comment: Speci men Type: BLOOD SPECIMEN [facility] Address: [address] [place] [address] Performed By: #### 2 132-9 #### [facility] CLIA [id number] [address] [place], [place] [address] [address] [place] Gabriel 05-19-2024 CNPN Telephone (FAMPWS) -------- GELY NEWMAN ([id number]) 1950 F Date Time Provider Department 05/19/24 [facility] During your visit today, we recorded the following information about you: Meagan Martinez MA 05/19/2024 9:19 AM Signed Pt sent in [employer] message asking for lab orders for her upcoming appt 06/04/24. She would like these ordered so she can schedule lab appt. Please notify her once these have been ordered. Labs pended, please review and file. ALFONSO Nicole Alyson, APRN.MARKETING RECRUITER 05/19/2024 11:31 AM Signed Labs are signed [...] [R53.83] Order(s):LIPID PANEL BASIC [SQLIPB] Order #: [id number] FUTURE COMPREHENSIVE METABOLIC PANEL [SQCMP] Order #: [id number] FUTURE THYROID STIMULATING HORMONE [SQTSH] Order #: [id number] FUTURE T3, FREE [SQFREET3] Order #: [id number] FUTURE T4 FREE/FREE THYROXINE [SQFT4] Order #: [id number] FUTURE VITAMIN D 25 HYDROXY [SQVITD] Order #: [id number] FUTURE COMPLETE BLOOD COUNT AND DIFFERENTIAL [SQCBCDIF] Order #: [id number] FUTURE HEMOGLOBIN A1C [KWJRT3S] Order #: [id number] FUTURE Prescriptions as of 05/19/2024 - glimepiride [...] 1 tablet by mouth once daily. - Vekflroi-Pcnz-Zft-Folic Acid 18-0.4 mg tab Take 1 tablet [...] (more content not included)... Normal [facility] XR Lumbar spine 3 Viewson * [...] calcifications. Mild levoscoliosis DIVISION OF RADIOLOGY Provider, [facility] - 12/10/2023 * * *Final [...] DESCRIBED. PROGRESSION PRIOR STUDY. NO ACUTE ABNORMALITY Signal Operator Technical: SANDRA Transcribe Date/Time: Dec 10 2023 1:03P Dictated by : CHASE SUE MD This examination was interpreted and the report reviewed and electronically signed by: CHASE SUE MD on Dec 10 2023 1:17PM EST [facility] Radiology Study observation (narrative) [facility] XR Lumbar spine 3 ViewsOrder ed By: Ccf Provider on 12-10-2023 [facility] Anaerobic cultureOrdered By: Rishi Vasquez on 08-16-2023 Bacteria identified Anaer cx Nom (Unsp spec) No anaerobic bacteria isolated. [facility] Bacteria identified Cx Nom ( Wound)Ordered By: Rishi Vasquez on 08-16-2023 Wound Culture Meth. resistant Stap h. aureus [facility] Gram stain for investigation of transfusion reactionOrdered By: Rishi Vasquez on 08-16-2023 Microscopic observation Gram stain Nom (Unsp spec) [facility] Anaerobic cultureOrdered By: Rishi Vasquez on 07-27-2023 Bacteria identified Anaer cx Nom (Unsp spec) No anaerobic bacteria isolated. [facility] Bacteria identified Cx Nom ( Wound)Ordered By: Rishi Vasquez on 07-27-2023 Wound Culture Meth. resistant Stap h. aureus [facility] Gram stain for investigation of transfusion reactionOrdered By: Rishi Vasquez on 07-27-2023 Microscopic observation Gram stain Nom (Unsp spec) [facility] Anaerobic cultureOrdered By: Rishi Vasquez on 07-26-2023 Bacteria identified Anaer cx Nom (Unsp spec) No anaerobic bacteria isolated. [facility] Bacteria identified Cx Nom ( Wound)Ordered By: Rishi Vasquez on 07-26-2023 Wound Culture Meth. resistant Stap h. aureus [facility] Gram stain for investigation of transfusion reactionOrdered By: Rishi Vasquez on 07-26-2023 Microscopic observation Gram stain Nom (Unsp spec) [facility] ALEJANDRO CONTRERAS RIGHTon 06-20 [facility] US BREAST LTD RIGHTon 2022 [facility] UA DIP, URINE (POC)on 2022 BILIRUBIN UA (POCT) Negative Negative [facility] CLARITY UA (POCT) Clear [facility] COLOR UA (POCT) Yellow [facility] GLUCOSE UA (POCT) Negative Negative mg/dL [facility] HEMOGLOBIN/BLOOD UA (POCT) Trace-intact Abnormal Negative [facility] KETONE UA (POCT) Negative Negative mg/dL [facility] LEUKOCYTES UA (POCT) Large [facility]ITR[facility] (POCT) Positive Abnormal Negative [facility] PH UA (POCT) 7.0 4.5 - 8.0 [facility] Protein Ql (U) 30 mg/dL Abnormal Negative mg/dL [facility] SPECIFIC GRAVITY UA (POCT) 1.015 1.005 - 1.030 [facility] UROBILINOGEN UA (POCT) 0.2 E.U./dL Jacki l E.U./dL [facility] ALEJANDRO SCREENINGon 05-29-2023 [facility] No Panel Informationon 12-29 [facility] US THYROID/PARATHYROIDon [facility] UA DIP, URINE (POC)on 2021 BILIRUBIN UA (POCT) Negative Negative [facility] CLARITY UA (POCT) Cloudy [facility] COLOR UA (POCT) Yellow [facility] GLUCOSE UA (POCT) 100 mg/dL Abnormal Negative mg/dL [facility] HEMOGLOBIN/BLOOD UA (POCT) Small Abnormal Negative [facility] KETONE UA (POCT) Negative Negative mg/dL [facility] LEUKOCYTES UA (POCT) Moderate Abnormal Negative [facility] NITRITE UA (POCT) Negative Negative [facility] PH UA (POCT) 7.0 4.5 - 8.0 [facility] Protein Ql (U) 100 mg/dL Abnormal Negative mg/dL [facility] SPECIFIC GRAVITY UA (POCT) 1.020 1.005 - 1.030 [facility] UROBILINOGEN UA (POCT) 0.2 E.U./dL Jacki l E.U./dL [facility] No Panel Informationon 08-15 Radiology Study observation (narrative) [facility] XR Sternum Lateral and right anterior obliqueon 09-27-2022 IMPRESSION: No acute osseous abnormality Signal Operator Technical: PSC Transcribe Date/Time: Aug 15 2022 1:22P Dictated by : MAURICIO REYNOLDS MD This examination was interpreted and the report reviewed and electronically signed by: MAURICIO REYNOLDS MD on Aug 15 2022 1:23PM [facility] DIVISION OF RADIOLOGY * * [...] destructive osseous lesion. DIVISION OF RADIOLOGY Provider, [facility] - 08/15/2022 * * *Final [...] lesion. IMPRESSION IMPRESSION: No acute osseous abnormality Signal Operator Technical: [facility] Transcribe Date/Time: Aug 15 2022 1:22P Dictated by : MAURICIO REYNOLDS MD This examination was interpreted and the report reviewed and electronically signed by: MAURICIO REYNOLDS MD on Aug 15 2022 1:23PM EST [facility] XR Sternum Lateral and right anterior obliqueOrdered By: Ccf Provider on 08-15-2022 [facility] XR Wrist - right 4 Viewson 0 08-15-2022 IMPRESSION: No acute fracture. Degenerative disease of the right wrist. Signal Operator Technical: PSCB Transcribe Date/Time: Aug 15 2022 1:20P Dictated by : MAURICIO REYNOLDS MD This examination was interpreted and the report reviewed and electronically signed by: MAURICIO REYNOLDS MD on Aug 15 2022 1:21PM [facility] DIVISION OF RADIOLOGY * * [...] fracture. Degenerative disease of the right wrist. Signal Operator Technical: SANDRA Transcribe Date/Time: Aug 15 2022 1:20P Dictated by : MAURICIO REYNOLDS MD This examination was interpreted and the report reviewed and electronically signed by: MAURICIO REYNOLDS MD on Aug 15 2022 1:21PM [facility] XR SHOULDER GENERAL 3V OR MO RE AP/TRUE AP/OTHER RIGHTon 06-17-2022 [facility] XR Shoulder - right 3 Viewso n 06-17-2022 IMPRESSION: 1. No acute fracture or dislocation. 2. Radiographic changes which can be seen in association with rotator cuff tendonopathy. Signal Operator Technical: PSCB Transcribe Date/Time: Jun 17 2022 9:43A [...] relevant examinations available for comparison within the [facility] Imaging Archives. RESULT: 3 views of the [...] is clear. [id number] _DIVISION OF RADIOLOGY Provider, [facility] - 06/17/2022 * * *Final [...] relevant examinations available for comparison within the [facility] Imaging Archives. RESULT: 3 views of the [...] seen in association with rotator cuff tendonopathy. Signal Operator Technical: PSCB Transcribe Date/Time: Jun 17 2022 9:43A Dictated by : AIYANA GOMEZ MD This examination was interpreted and the report reviewed and electronically signed by: AIYANA GOMEZ MD on Jun 17 2022 9:45AM EST [facility] Radiology Study observation (narrative) [facility] XR Shoulder - right 3 ViewsO rdered By: Ccf Provider on 06-17-2022 [facility] ALEJANDRO SCREENINGon 06-05-2022 [facility] HEMOGLOBIN A1C (POC)on 05-31 HbA1c (Bld) [Mass fraction] 6.2 % 4.2 - 5.6 % [facility] Renal function 2000 panelon 03-07-2022 Albumin [Mass/Vol] 4.1 g/dL 3.9 - 4.9 g/dL [facility] Anion gap [Moles/Vol] 14 mmol/L 9 - 18 mmol/L [facility] Calcium [Mass/Vol] 9.9 mg/dL 8.5 - 10. 2 mg/dL [facility] Chloride [Moles/Vol] 105 mmol/L 97 - 10 5 mmol/L [facility] CO2 [Moles/Vol] 23 mmol/L 22 - 30 mmol/L [facility] Creatinine [Mass/Vol] 1.29 mg/dL High 0.58 - 0.96 mg/dL [facility] Estimated Glomerular Filtration Rate 45 mL/min/1.73m Low >=60 mL/min/1.73 m [facility] Glucose [Mass/Vol] 167 mg/dL High 74 - 99 mg/dL [facility] Phosphate [Mass/Vol] 4.0 mg/dL 2.7 - 4 .8 mg/dL [facility] Potassium [Moles/Vol] 4.1 mmol/L 3.7 - 5.1 mmol/L [facility] Sodium [Moles/Vol] 142 mmol/L 136 - 144 mmol/L [facility] Urea nitrogen [Mass/Vol] 42 mg/dL High 7 - 21 mg/dL [facility] Glucose Glucometer (BldC) [M ass/Vol]on 01-20-2022 Glucose [Mass/Vol] 163 mg/dL 74-106 [facility] Work Phone: Comment on above: MANAGEMENT OF PATIEN T CARE PER NURSING PROTOCOL Office Visit: Thyroid Nodule son 08-30-2017 Dietary management education, guidance, and counseling (procedure) yes Invalid Interpretation Code [facility] Work Phone: Documentation of current medications (procedure) Done Invalid Interpretation Code [facility] Work Phone: Fall risk assessment No Invalid Interpretation Code [facility] Work Phone: Tobacco smoking status NHIS Never Invalid Interpretation Code [facility] Work Phone: Tobacco use [facility] Former smoker Invalid Interpretation Code [facility] Work Phone: Office Visiton 06-11-2017 Dietary management education, guidance, and counseling (procedure) yes Invalid Interpretation Code [facility] Work Phone: [phone] Documentation of current medications (procedure) Done Invalid Interpretation Code [facility] Work Phone: [phone] Protein mass conc Done [facility] Work Phone: [phone] 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 Left ventricular Ejection fraction 60 % Invalid Interpretation Code [facility] Work Phone: [phone] 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 phalanxon 05-02-2017 Dietary management education, guidance, and counseling (procedure) yes Invalid Interpretation Code [facility] Work Phone: [phone] Documentation of current medications (procedure) Done Invalid Interpretation Code [facility] Work Phone: [phone] Fall risk assessment No Invalid Interpretation Code [facility] Work Phone: Protein mass conc Done [facility] Work Phone: Tobacco smoking status NHIS Never Invalid Interpretation Code [facility] Work Phone: Tobacco smoking status NHIS Former smoker [facility] Work Phone: Tobacco use [facility] Former smoker Invalid Interpretation Code [facility] Work Phone: [phone] Office Visiton 04-23-2017 Protein mass conc Done [facility] Work Phone: Lab Report: CRPon 02-21-2017 CRP [Mass/Vol] mg/L Invalid Interpretation Code 0.0-3.0 [facility] Work Phone: Lab Report: Erythrocyte [...] [Mass/Vol] 1.35 ng/dL Invalid Interpretation Code 0.76-1.46 [facility] Work Phone: Lab Report: Thyroid Stim Hor oh (TSH)on 02-07-2017 TSH Qn < 0.01 uIU/mL Low 0.358-3.74 [facility] Work Phone: Office Visit: Thyroid evalua tionon 02-06-2017 Adolescent depression screening assessment Adolescent depression screening assessment Invalid Interpretation Code [facility] Work Phone: [phone] Adult depression screening assessment Adolescent depression screening assessment Invalid Interpretation Code [facility] Work Phone: Fall risk assessment [...] tho $ <=20 S Invalid Interpretation Code [facility] Work Phone: [phone] Clinical Lists 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: 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 01-15-2017 Cholesterol 164 mg/dL Invalid Interpretation Code [facility] Work Phone: [phone] Cholesterol to HDL Ratio 2.98 {ratio} Invalid Interpretation Code [facility] Work Phone: [phone] HDL Cholesterol 55 mg/dL Low [facility] Work Phone: [phone] LDL Cholesterol 67 mg/dL Invalid Interpretation Code [facility] Work Phone: [phone] LDL/HDL ratio, serum 1.22 Invalid Interpretation Code [facility] Work Phone: [phone] Triglyceride 210 mg/dL High [facility] Work Phone: [phone] very low density lipoproteins 42 mg/dL High [facility] Work Phone: [phone] Lab Report: Basic Metabolic Profile (BMP)on 01-12-2017 Anion gap 8 mmol/L Invalid Interpretation Code 5-15 [facility] Work Phone: [phone] Anion gap [Moles/Vol] 8 mmol/L 5-15 [facility] Work Phone: Calcium [Mass/Vol] 9.0 mg/dL Invalid Interpretation Code 8.5-10.1 [facility] Work Phone: Chloride [Moles/Vol] 105 mmol/L Invalid Interpretation Code 98-107 [facility] Work Phone: CO2 26.0 mmol/L Invalid Interpretation Code 21.0-32.0 [facility] Work Phone: [phone] CO2 (BldV) [Partial pressure] 26.0 mmol/L 21.0-32.0 [facility] Work Phone: Creatinine [Mass/Vol] 1.63 mg/dL High 0.55-1.02 [facility] Work Phone: [phone] eGFR (non-black) 41 mL/min/{1.73_m2} Low >60 [facility] Work Phone: EST GFR - AA 41 mL/min Low >60 [facility] Work Phone: [phone] GFR/1.73 sq M predicted among non-blacks MDRD (S/P/Bld) [Vol rate/Area] 34 mL/min/{1.73_m2} Low >60 [facility] Work Phone: Glucose 210 mg/dL High 70-110 [facility] Work Phone: Glucose [Mass/Vol] 210 mg/dL High 70-110 [facility] Work Phone: Potassium [Moles/Vol] 4.6 mmol/L Invalid Interpretation Code 3.5-5.1 [facility] Work Phone: [phone] Sodium [Moles/Vol] 139 mmol/L Invalid Interpretation Code 136-145 [facility] Work Phone: [phone] Urea nitrogen [Mass/Vol] 53 mg/dL High 7-18 [facility] Work Phone: Urea nitrogen/Creatinine [Mass ratio] 32.5 RATIO High 10-20 [facility] Work Phone: Replaced Document: (P) CBC W /Diff, Automatedon 01-12-2017 Absolute Neut 3.7 X10 3/UL Invalid Interpretation Code 2.0-7.7 [facility] Work Phone: Basophils/100 leukocytes 1.2 % High 0-1 [facility] Work Phone: Basophils/100 WBC (Bld) 1.2 % High 0-1 [facility] Work Phone: Eosinophils/100 leukocytes 8.4 % High 0-5 [facility] Work Phone: Eosinophils/100 WBC (Bld) 8.4 % High 0-5 [facility] Work Phone: Erythrocyte distribution width (RBC) [Ratio] 44.7 fL High 35.1-43.9 [facility] Work Phone: Erythrocyte distribution width (RBC) [Ratio] 13.9 % 11.6-14.6 [facility] Work Phone: Erythrocytes (RBC) 4.04 10*6/uL Low 4.2-5.[address] [facility] Work Phone: [phone] Hematocrit (Bld) [Volume fraction] 36.0 % Low 37-47 [facility] Work Phone: Hematocrit (HCT) 36.0 % Low 37-47 [facility] Work Phone: [phone] Hemoglobin (Bld) [Mass/Vol] 11.6 g/dL Low 12.0-15.0 [facility] Work Phone: Immature granulocytes (Bld) [#/Vol] 0.200 % 0.0-0.9 [facility] Work Phone: immature granulocytes, percentage of total cells, blood 0.200 % Invalid Interpretation Code 0.0-0.9 [facility] Work Phone: [phone] Immature granulocytes/100 WBC (Bld) 0.200 % Invalid Interpretation Code 0.0-0.9 [facility] Work Phone: Lymphocytes 1.53 X10 3/UL Invalid Interpretation Code 0.83-4.51 [facility] Work Phone: [phone] Lymphocytes (Bld) [#/Vol] 1.53 X10 3/UL 0.83-4.51 [facility] Work Phone: Lymphocytes/100 leukocytes 23.3 % Invalid Interpretation Code 19-41 [facility] Work Phone: [phone] Lymphocytes/100 WBC (Bld) 23.3 % 19-41 [facility] Work Phone: MCH 28.7 pg Invalid Interpretation Code 27.0-32.0 [facility] Work Phone: [phone] MCH (RBC) [Entitic mass] 28.7 pg 27.0-32.0 [facility] Work Phone: MCHC 32.2 G/GL Invalid Interpretation Code 32-36 [facility] Work Phone: [phone] MCHC (RBC) [Mass/Vol] 32.2 G/GL 32-36 [facility] Work Phone: MCV 89.1 fL Invalid Interpretation Code 81-99 [facility] Work Phone: [phone] MCV (RBC) [Entitic vol] 89.1 fL 81-99 [facility] Work Phone: Monocytes/100 leukocytes 10.5 % High 0-10 [facility] Work Phone: [phone] Monocytes/100 WBC (Bld) 10.5 % High 0-10 [facility] Work Phone: neutrophil count, blood 3.7 X10 3/UL Invalid Interpretation Code 2.0-7.7 [facility] Work Phone: [phone] Neutrophils (Bld) [#/Vol] 3.7 X10 3/UL 2.0-7.7 [facility] Work Phone: Neutrophils/100 leukocytes 56.4 % Invalid Interpretation Code 47-70 [facility] Work Phone: [phone] Neutrophils/100 WBC (Bld) 56.4 % 47-70 [facility] Work Phone: Platelet mean volume (Bld) [Entitic vol] 10.4 fL 6.2-12.0 [facility] Work Phone: Platelets 239 10*3/mm3 Invalid Interpretation Code 150-450 [facility] Work Phone: [phone] Platelets (Bld) [#/Vol] 239 10*3/mm3 150-450 [facility] Work Phone: PMV by Stevo 10.4 fL Invalid Interpretation Code 6.2-12.0 [facility] Work Phone: RBC (Bld) [#/Vol] 4.04 10*6/uL Low 4.2-5.4 [facility] Work Phone: RDW SD 44.7 fL High 35.1-43.9 [facility] Work Phone: RDW-CA 13.9 % Invalid Interpretation Code 11.6-14.6 [facility] Work Phone: [phone] red blood cell distribution width, size density 44.7 fL High 35.1-43.9 [facility] Work Phone: [phone] WBC (Bld) [#/Vol] 6.6 10*3/uL 4.4-11.0 [facility] Work Phone: WBC (Leukocytes) 6.6 10*3/uL Invalid Interpretation Code 4.4-11.0 [facility] Work Phone: [phone] Lab Report: MRSA Wound DNA b y PCRon 01-04-2017 GE use only - for [employer] import when terms are not otherwise specified Positive High Negative [facility] Work Phone: [phone] INR Coag (Bld) [Relative time] Positive High Negative [facility] Work Phone: SA RESULT Positive High Negative [facility] Work Phone: Office Visit: Thyroid evalua tionon 12-20-2016 Colonoscopy (procedure) Colonoscopy (procedure) Invalid Interpretation Code [facility] Work Phone: [phone] Protein mass conc Colonoscopy (procedure) [facility] Work Phone: Lab Report: CBC W/Diff, Auto matedon 12-13-2016 Anisocytosis presence RARE Invalid Interpretation Code [facility] Work Phone: [phone] Anisocytosis Ql (Bld) RARE [facility] Work Phone: complete blood count (CBC), comments . Invalid Interpretation Code [facility] Work Phone: [phone] Pathologist Cyto stain Nom (Cvx/Vag) [ID] May foll Invalid Interpretation Code [facility] Work Phone: Platelets LM Ql (Bld) ADEQUATE Invalid Interpretation Code ADEQ [facility] Work Phone: SMEAR COMMENT . Invalid Interpretation Code [facility] Work Phone: Lab Report: IgG Subclasseson 12-02-2016 IgG subclass 1 (S) [Mass/Vol] 392 mg/dL Low 422-1292 [facility] Work Phone: IgG subclass 2 (S) [Mass/Vol] 216 mg/dL Invalid Interpretation Code 117-747 [facility] Work Phone: IgG subclass 3 (S) [Mass/Vol] 42 mg/dL Invalid Interpretation Code 41-129 [facility] Work Phone: IgG subclass 4 (S) [Mass/Vol] 9 mg/dL Invalid Interpretation Code 1-291 [facility] Work Phone: Office Visit: day 7 of Cefta raline (mrsa, enterobacter, actinomyces)on 11-22-2016 Adult depression screening assessment Adult depression screening assessment Invalid Interpretation Code [facility] Work Phone: [phone] PHQ-9 quick depression assessment panel [Reported.PHQ] Adult depression screening assessment [facility] Work Phone: Lab Report: GEGE + Protein El ect, Serumon 11-21-2016 Albumin [Mass/Vol] 2.5 g/dL Low 2.9-4.4 [facility] Work Phone: Albumin/Globulin [Mass ratio] 0.9 {ratio} Invalid Interpretation Code 0.7-1.7 [facility] Work Phone: Alpha 2 globulin Elph [Mass/Vol] 1.1 g/dL High 0.4-1.0 [facility] Work Phone: [id number] 0.3 g/dL Invalid Interpretation Code 0.0-0.4 [facility] Work Phone: BETA GLOBULIN 0.9 g/dL Invalid Interpretation Code 0.7-1.3 [facility] Work Phone: Gamma globulin Elph [Mass/Vol] 600 mg/dL Invalid Interpretation Code Units converted. See lab report for original value. [facility] Work Phone: [phone] Globulin 2.9 g/dL Invalid Interpretation Code 2.2-3.9 [facility] Work Phone: [phone] Globulin 0.9 g/dL Invalid Interpretation Code 0.7-1.3 [facility] Work Phone: [phone] Globulin 0.3 g/dL Invalid Interpretation Code 0.0-0.4 [facility] Work Phone: [phone] Globulin (S) [Mass/Vol] 2.9 g/dL 2.2-3.9 [facility] Work Phone: [phone] GEGE RESULT,S Comment Invalid Interpretation Code . [facility] Work Phone: [phone] IgA [Mass/Vol] 249 mg/dL Invalid Interpretation Code 87-352 [facility] Work Phone: [phone] IgG [Mass/Vol] 584 mg/dL Low 700-1600 [facility] Work Phone: [phone] IgM [Mass/Vol] 40 mg/dL Invalid Interpretation Code 26-217 [facility] Work Phone: [phone] lab comments Comment Invalid Interpretation Code . [facility] Work Phone: [phone] M-SPIKE . g/dL Invalid Interpretation Code [facility] Work Phone: [phone] MONOCLONAL PROTEIN . g/dL Invalid Interpretation Code [facility] Work Phone: [phone] NOTE: Comment Invalid Interpretation Code . [facility] Work Phone: Protein [Mass/Vol] 5.4 g/dL Low 6.0-8.5 [facility] Work Phone: Protein mass conc Comment . [facility] Work Phone: serum protein electrophoresis, interpretation/comment Comment Invalid Interpretation Code . [facility] Work Phone: [phone] Lab Report: Bedside Glucoseo n 11-18-2016 Glucose 352 mg/dL High 70-110 [facility] Work Phone: [phone] Glucose [Mass/Vol] 352 mg/dL High 70-110 [facility] Work Phone: Microbiology: Fungus Stainon 11-18-2016 fungus stain . Invalid Interpretation Code [facility] Work Phone: [phone] FUNST . Invalid Interpretation Code [facility] Work Phone: Lab Report: Basic Metabolic Profile (BMP)on 11-17-2016 Creatinine 45.87 mL/min Invalid Interpretation Code [facility] Work Phone: [phone] Lab Report: Iron+Iron Bindin g Capacityon 11-17-2016 Iron [Mass/Vol] 32 ug/dL Low 50-170 [facility] Work Phone: Iron binding capacity [Mass/Vol] 223 ug/dL Low 250-450 [facility] Work Phone: Iron saturation [Mass fraction] 14.3 % Low 15.0-55.0 [facility] Work Phone: Lab Report: Hemoglobin A1con 11-16-2016 HbA1c (Bld) [Mass fraction] 5.3 % Invalid Interpretation Code 4.2-6.3 [facility] Work Phone: Lab Report: Comprehensive Me tabolic Profilon 11-14-2016 Albumin [Mass/Vol] 2.9 g/dL Low 3.4-5.0 [facility] Work Phone: Alkaline phosphatase (ALP) 56 U/L Invalid Interpretation Code 45-117 [facility] Work Phone: [phone] ALP (Bld) [Catalytic activity/Vol] 56 U/L 45-117 [facility] Work Phone: [phone] ALT [Catalytic activity/Vol] 14 U/L Invalid Interpretation Code 12-78 [facility] Work Phone: [phone] AST [Catalytic activity/Vol] 13 U/L Low 15-37 [facility] Work Phone: Bilirubin [Mass/Vol] 0.20 mg/dL Invalid Interpretation Code 0.20-1.00 [facility] Work Phone: Protein [Mass/Vol] 6.9 g/dL Invalid Interpretation Code 6.4-8.2 [facility] Work Phone: Lab Report: Prealbuminon Prealbumin 12.9 mg/dL Low 20.0-40.0 [facility] Work Phone: [phone] Prealbumin Elph [Mass/Vol] 12.9 mg/dL Low 20.0-40.0 [facility] Work Phone: Lab Report: Vancomycin, Trou gh Levelon 10-09-2016 Vancomycin trough [Mass/Vol] 18.7 ug/mL High 5.0-15.0 [facility] Work Phone: Lab Report: Magnesiumon 08-19 Magnesium [Mass/Vol] 2.3 mg/dL Invalid Interpretation Code 1.8-2.4 [facility] Work Phone: Lab Report: Phosphoruson PHOS 3.8 mg/dL Invalid Interpretation Code 2.5-4.9 [facility] Work Phone: Phosphate [Mass/Vol] 3.8 mg/dL 2.5-4.[address] [facility] Work Phone: Phosphorus Concentratation-Random 3.8 mg/dL Invalid Interpretation Code 2.5-4.9 [facility] Work Phone: Lab Report: Liver [...] by coagulation 1.2 {INR} Invalid Interpretation Code [facility] Work Phone: PT Coag (PPP) [Time] 14.8 s Invalid Interpretation Code 11.7-14.9 [facility] Work Phone: Office Visit: Thyroid evalua tionon 04-19-2016 MG Breast screening Normal Bilateral Invalid Interpretation Code [facility] Work Phone: Clinical 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 ABNORMAL Invalid Interpretation Code [facility] Work Phone: [phone] Interpretation Sinus Bradycardia -L eft axis. ABNORMAL Invalid Interpretation Code [facility] Work Phone: [phone] P [place] 39 deg Invalid Interpretation Code [facility] Work Phone: [phone] P wave axis, electrocardiogram 39 deg Invalid Interpretation Code [facility] Work Phone: WI Interval 154 ms Invalid Interpretation Code [facility] Work Phone: WI interval, electrocardiogram 154 ms Invalid Interpretation Code [facility] Work Phone: [phone] Pulse (Heart Rate) 55 /min Invalid Interpretation Code [facility] Work Phone: [phone] QRS axis, electrocardiogram -36 deg Invalid Interpretation Code [facility] Work Phone: [phone] QRS Duration 104 ms Invalid Interpretation Code [facility] Work Phone: QRS duration, electrocardiogram 104 ms Invalid Interpretation Code [facility] Work Phone: QT Interval new path ms Invalid Interpretation Code [facility] Work Phone: [phone] QT interval, electrocardiogram new path ms Invalid Interpretation Code [facility] Work Phone: [phone] T [place] 31 deg Invalid Interpretation Code [facility] Work Phone: [phone] T wave axis, electrocardiogram 31 deg Invalid Interpretation Code [facility] Work Phone: [phone] Office Visiton 02-22-2015 Cholesterol [Mass/Vol] 164 mg/dL [facility] Work Phone: [phone] Cholesterol in HDL [Mass/Vol] 57 mg/dL [facility] Work Phone: [phone] Cholesterol in LDL [Mass/Vol] 76 mg/dL [facility] Work Phone: [phone] Triglyceride [Mass/Vol] 155 mg/dL [facility] Work Phone: [phone] Clinical Lists 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: 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 Free T4 index Calc [Mass/Vol] 10.2 Invalid Interpretation Code [facility] Work Phone: [phone] T4 [Mass/Vol] 9.9 ug/dL Invalid Interpretation Code [facility] Work Phone: Throyxin (T4) Free 10.2 ng/dL Invalid Interpretation Code [facility] Work Phone: [phone] Office Visiton 12-29-2014 cardiac risk group C Invalid Interpretation Code [facility] Work Phone: General cardiovascular disease 10Y risk [#] [place].D'Agostino N/A Invalid Interpretation Code [facility] Work Phone: Clinical Lists 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: 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 11-18-2014 Cholesterol in LDL/Cholesterol in HDL [Mass ratio] 2.06 [facility] Work Phone: [phone] Cholesterol.total/Chol esterol in HDL [Mass ratio] 3.56 {ratio} [facility] Work Phone: [phone] Lipoprotein.pre-beta [Mass/Vol] 32 mg/dL [facility] Work Phone: Replaced Document: [employer] E CG Observationson 01-12-2014 Pulse (Heart Rate) 406 ms Invalid Interpretation Code [facility] Work Phone: Office Visit: Thyroid evalua hunter 01-17-2013 General categories Cyto stain (Cvx/Vag) [Interp] Normal Invalid Interpretation Code [facility] Work Phone: Vital Signs Date Time Vital Sign Value Performing Clinician Facility 05-13-2025 16:09-0400 Body temperature 98.2 [degF] Dr. Rishi Vasquez DO Work Phone: [facility] 05-13-2025 16:09-0400 Body weight 70.[address] Rishi Vasquez DO Work Phone: 5(560)444-777182 [place] [address] 05-13-2025 16:09-0400 Diastolic blood pressure 54 mm[Hg] Dr. Rishi Vasquez DO Work Phone: 7(548)581-130482 [place] [address] 05-13-2025 16:09-0400 Heart rate 60 /min Dr. Rishi Vasquez DO Work Phone: [facility] 05-13-2025 16:09-0400 Respiratory rate 16 /min Dr. Rishi Vasquez DO Work Phone: [facility] 05-13-2025 16:09-0400 SaO2% (BldA) [Mass fraction] 97 % Dr. Rishi Vasquez DO Work Phone: [facility] 05-13-2025 16:09-0400 Systolic blood pressure 130 mm[Hg] Dr. Rishi Vasquez DO Work Phone: [facility] 05-07-2025 09:19-0400 Body height 167.[address] Rishi Vasquez DO Work Phone: [facility] 05-07-2025 09:19-0400 Body mass index (BMI) [Ratio] 24.7 kg/m2 Dr. Rishi Vasquez DO Work Phone: [facility] 05-07-2025 09:19-0400 Body weight 69.[address] Rishi Vasquez DO Work Phone: [facility] 05-07-2025 09:19-0400 Diastolic blood pressure 63 mm[Hg] Dr. Rishi Vasquez DO Work Phone: [facility] 05-07-2025 09:19-0400 Heart rate 56 /min Dr. Rishi Vasquez DO Work Phone: [facility] 05-07-2025 09:19-0400 Respiratory rate 16 /min Dr. Rishi Vasquez DO Work Phone: [facility] 05-07-2025 09:19-0400 Systolic blood pressure 123 mm[Hg] Dr. Rishi Vasquez DO Work Phone: [facility] 04-30-2025 11:13-0400 Body mass index (BMI) [Ratio] 24.5 kg/m2 Fouzia Chandra [employer] MECHANIC.MARKETING RECRUITER Work Phone: [facility] 04-30-2025 11:13-0400 Body weight 68.86 kg Fouzia Chandra [employer] MECHANIC.MARKETING RECRUITER Work Phone: [facility] 04-30-2025 11:13-0400 Diastolic blood pressure 60 mm[Hg] Fouzia Chandra [employer] MECHANIC.MARKETING RECRUITER Work Phone: [facility] 04-30-2025 11:13-0400 Heart rate 77 /min Fouzia Chandra [employer] MECHANIC.MARKETING RECRUITER Work Phone: [facility] 04-30-2025 11:13-0400 Respiratory rate 12 /min Fouzia Chandra [employer] MECHANIC.MARKETING RECRUITER Work Phone: [facility] 04-30-2025 11:13-0400 SaO2% (BldA) [Mass fraction] 98 % Fouzia Chandra [employer] MECHANIC.MARKETING RECRUITER Work Phone: [facility] 04-30-2025 11:13-0400 Systolic blood pressure 130 mm[Hg] Fouzia Chandra [employer] MECHANIC.MARKETING RECRUITER Work Phone: [facility] 04-15-2025 11:26-0400 Body height 167.[address] Rishi Vasquez DO Work Phone: [facility] 04-15-2025 11:26-0400 Body weight 74.[address] Rishi Vasquez DO Work Phone: 1(125)992-269682 [place] [address] 04-14-2025 07:25-0400 Body mass index (BMI) [Ratio] 26.4 kg/m2 Dr. Rishi Vasquez DO Work Phone: 5(505)034-540482 [place] [address] 04-03-2025 11:01-0400 Body temperature 98.2 [degF] Dr. Rishi Vasquez DO Work Phone: 0(744)115-101042 [place] [address] 04-03-2025 11:01-0400 Body weight 74.[address] Rishi Vasquez DO Work Phone: 6(491)876-901842 [place] [address] 04-03-2025 11:01-0400 Diastolic blood pressure 59 mm[Hg] Dr. Rishi Vasquez DO Work Phone: 9(856)903-043482 [place] [address] 04-03-2025 11:01-0400 Heart rate 60 /min Dr. Rishi Vasquez DO Work Phone: 7(032)903-742142 [place] [address] 04-03-2025 11:01-0400 Respiratory rate 14 /min Dr. Rishi Vasquez DO Work Phone: 2(900)380-679742 [place] [address] 04-03-2025 11:01-0400 SaO2% (BldA) [Mass fraction] 97 % Dr. Rishi Vasquez DO Work Phone: 2(916)788-799082 [place] [address] 04-03-2025 11:01-0400 Systolic blood pressure 124 mm[Hg] Dr. Rishi Vasquez DO Work Phone: [facility] 03-27-2025 10:16-0400 Diastolic blood pressure 68 mm[Hg] Yumiko Valenzuelalogcarlo [employer] MECHANIC.MARKETING RECRUITER Work Phone: [facility] 03-27-2025 10:16-0400 Heart rate 74 /min Yumiko Whitehead APRN.MARKETING RECRUITER Work Phone: [facility] 03-27-2025 10:16-0400 Respiratory rate 16 /min Yumiko Podlogar [employer] MECHANIC.MARKETING RECRUITER Work Phone: [facility] 03-27-2025 10:16-0400 SaO2% (BldA) [Mass fraction] 99 % Yumiko Podlogar [employer] MECHANIC.MARKETING RECRUITER Work Phone: [facility] 03-27-2025 10:16-0400 Systolic blood pressure 134 mm[Hg] Yumiko Podlogar [employer] MECHANIC.MARKETING RECRUITER Work Phone: [facility] 03-20-2025 08:28-0400 Body temperature 98.9 [degF] Dr. Rishi Vasquez DO Work Phone: [facility] 03-20-2025 08:28-0400 Diastolic blood pressure 57 mm[Hg] Dr. Rishi Vasquez DO Work Phone: [facility] 03-20-2025 08:28-0400 Heart rate 52 /min Dr. Rishi Vasquez DO Work Phone: [facility] 03-20-2025 08:28-0400 Respiratory rate 18 /min Dr. Rishi aVsquez DO Work Phone: 9(091)147-275882 [place] [address] 03-20-2025 08:28-0400 SaO2% (BldA) [Mass fraction] 97 % Dr. Rishi Vasquez DO Work Phone: [facility] 03-20-2025 08:28-0400 Systolic blood pressure 142 mm[Hg] Dr. Rishi Vasquez DO Work Phone: [facility] 03-19-2025 10:06-0400 Body height 167.[address] Rishi Vasquez DO Work Phone: [facility] 03-19-2025 10:06-0400 Body mass index (BMI) [Ratio] 26.4 kg/m2 Dr. Rishi Vasquez DO Work Phone: [facility] 03-19-2025 10:06-0400 Body weight 74.[address] Rishi Vasquez DO Work Phone: 1(518)537-713482 [place] [address] 03-11-2025 15:34-0400 Body temperature 97.9 [degF] Dr. Rishi Vasquez DO Work Phone: 1(919)468-937742 [place] [address] 03-11-2025 15:34-0400 Diastolic blood pressure 47 mm[Hg] Dr. Rishi Vasquez DO Work Phone: 8(228)341-250342 [place] [address] 03-11-2025 15:34-0400 Heart rate 58 /min Dr. Rishi Vasquez DO Work Phone: 3(837)642-373942 [place] [address] 03-11-2025 15:34-0400 Respiratory rate 16 /min Dr. Rishi Vasquez DO Work Phone: 1(418)076-934742 [place] [address] 03-11-2025 15:34-0400 SaO2% (BldA) [Mass fraction] 97 % Dr. Rishi Vasquez DO Work Phone: 2(918)977-021842 [place] [address] 03-11-2025 15:34-0400 Systolic blood pressure 112 mm[Hg] Dr. Rishi Vasquez DO Work Phone: 9(910)679-089742 [place] [address] 03-11-2025 05:37-0400 Body mass index (BMI) [Ratio] 26.6 kg/m2 Dr. Rishi Vasquez DO Work Phone: 5(549)656-749042 [place] [address] 03-11-2025 05:37-0400 Body weight 75.[address] Rishi Vasquez DO Work Phone: 4(770)396-813842 [place] [address] 03-07-2025 17:01-0400 Body temperature 98 [degF] Dr. Rishi Vasquez DO Work Phone: 4(404)536-496942 [place] [address] 03-07-2025 17:01-0400 Diastolic blood pressure 78 mm[Hg] Dr. Rishi Vasquez DO Work Phone: 0(843)291-121042 [place] [address] 03-07-2025 17:01-0400 Heart rate 67 /min Dr. Rishi Vasquez DO Work Phone: 0(529)256-409642 [place] [address] 03-07-2025 17:01-0400 Respiratory rate 14 /min Dr. Rishi Vasquez DO Work Phone: 1(044)885-092242 [place] [address] 03-07-2025 17:01-0400 SaO2% (BldA) [Mass fraction] 99 % Dr. Rishi Vasquez DO Work Phone: [facility] 03-07-2025 17:01-0400 Systolic blood pressure 109 mm[Hg] Dr. Rishi Vasquez DO Work Phone: [facility] 03-07-2025 13:42-0400 Body height 167.[address] Rishi Vasquez DO Work Phone: [facility] 03-07-2025 13:42-0400 Body mass index (BMI) [Ratio] 27.6 kg/m2 Dr. Rishi Vasquez DO Work Phone: [facility] 03-07-2025 13:42-0400 Body weight 77.[address] Rishi Vasquez DO Work Phone: [facility] 12-05-2024 09:39-0500 Diastolic blood pressure 60 mm[Hg] Rishi Vasquez DO Work Phone: [facility] 12-05-2024 09:39-0500 Systolic blood pressure 110 mm[Hg] Rishi Del Rosarioon DO Work Phone: [facility] 12-05-2024 09:03-0500 Body mass index (BMI) [Ratio] 25.62 kg/m2 Rishi Taterison DO Work Phone: [facility] 12-05-2024 09:03-0500 Body temperature 97 [degF] Rishi Del Rosarioon DO Work Phone: [facility] 12-05-2024 09:03-0500 Body weight 72 kg Rishi Vasquez DO Work Phone: [facility] 12-05-2024 09:03-0500 Heart rate 60 /min Rishi Vasquez DO Work Phone: [facility] 12-05-2024 09:03-0500 Respiratory rate 16 /min Rishi Vasquez DO Work Phone: [facility] 06-04-2024 09:43-0400 Body mass index (BMI) [Ratio] 24.69 kg/m2 Rishi Vasquez DO Work Phone: [facility] 06-04-2024 09:43-0400 Body temperature 96.6 [degF] Rishi Vasquez DO Work Phone: [facility] 06-04-2024 09:43-0400 Body weight 69.4 kg Rishi Vasquez DO Work Phone: [facility] 06-04-2024 09:43-0400 Diastolic blood pressure 70 mm[Hg] Rishi Vasquez DO Work Phone: [facility] 06-04-2024 09:43-0400 Heart rate 64 /min Rishi Vasquez DO Work Phone: [facility] 06-04-2024 09:43-0400 Respiratory rate 16 /min Risih Vasquez DO Work Phone: [facility] 06-04-2024 09:43-0400 Systolic blood pressure 154 mm[Hg] Rishi Vasquez DO Work Phone: [facility] 02-07-2024 09:19-0400 Body mass index (BMI) [Ratio] 25.8 kg/m2 Dr. Rishi Vasquez Work Phone: [facility] 02-07-2024 09:19-0400 Body weight 72.[address] Rishi Vasquez Work Phone: [facility] 02-07-2024 09:19-0400 Diastolic blood pressure 71 mm[Hg] Dr. Rishi Vasquez Work Phone: [facility] 02-07-2024 09:19-0400 Heart rate 47 /min Dr. Rishi Vasquez Work Phone: [facility] 02-07-2024 09:19-0400 Respiratory rate 18 /min Dr. Rishi Vasquez Work Phone: [facility] 02-07-2024 09:19-0400 Systolic blood pressure 142 mm[Hg] Dr. Rishi Vasquez Work Phone: 5(522)296-790282 [place] [address] 01-15-2024 10:00-0500 Diastolic blood pressure 71 mm[Hg] Anselmo Golias PT Work Phone: [facility] 01-15-2024 10:00-0500 Heart rate 63 /min Anselmo Golias PT Work Phone: [facility] 01-15-2024 10:00-0500 Systolic blood pressure 166 mm[Hg] Anselmo Golias PT Work Phone: [facility] 07-03-2023 09:06-0400 Body height 167.[address] Rishi Vasquez Work Phone: [facility] 07-03-2023 09:06-0400 Body mass index (BMI) [Ratio] 26.1 kg/m2 Dr. Rishi Vasquez Work Phone: 3(761)953-665182 [place] [address] 07-03-2023 09:06-0400 Body weight 73.[address] Rishi Vasquez Work Phone: [facility] 07-03-2023 09:06-0400 Diastolic blood pressure 62 mm[Hg] Dr. Rishi Vasquez Work Phone: 5(125)701-862982 [place] [address] 07-03-2023 09:06-0400 Heart rate 55 /min Dr. Rishi Vasquez Work Phone: [facility] 07-03-2023 09:06-0400 Respiratory rate 17 /min Dr. Rishi Vasquez Work Phone: [facility] 07-03-2023 09:06-0400 SaO2% (BldA) [Mass fraction] 99 % Dr. Rishi Vasquez Work Phone: 6(361)874-435582 [place] [address] 07-03-2023 09:06-0400 Systolic blood pressure 145 mm[Hg] Dr. Rishi Vasquez Work Phone: [facility] 06-04-2023 11:25-0400 Body temperature 97.3 [degF] Rishi Vasquez DO Work Phone: [facility] 06-04-2023 11:25-0400 Body weight 72.58 kg Rishi Vasuqez DO Work Phone: [facility] 06-04-2023 11:25-0400 Diastolic blood pressure 70 mm[Hg] Rishi Vasquez DO Work Phone: [facility] 06-04-2023 11:25-0400 Heart rate 60 /min Rishi Taterison DO Work Phone: [facility] [place] 06-04-2023 11:25-0400 Respiratory rate 16 /min Rishi Del Rosarioon DO Work Phone: [facility] 06-04-2023 11:25-0400 Systolic blood pressure 120 mm[Hg] Rishi Vasquez DO Work Phone: [facility] [place] 04-20-2023 08:57-0400 Body height 167.[address] Rishi Vasquez Work Phone: 0(365)410-721382 [place] [address] 04-20-2023 08:57-0400 Heart rate 56 /min Dr. Rishi Vasquez Work Phone: 8(153)440-211182 [place] [address] 04-20-2023 08:51-0400 Body mass index (BMI) [Ratio] 25.9 kg/m2 Dr. Rishi Vasquez Work Phone: 2(365)855-343842 [place] [address] 04-20-2023 08:51-0400 Body weight 73.[address] Rishi Vasquez Work Phone: 8(608)197-945282 [place] [address] 04-20-2023 08:51-0400 Diastolic blood pressure 72 mm[Hg] Dr. Rishi Vasquez Work Phone: 9(694)523-080282 [place] [address] 04-20-2023 08:51-0400 Respiratory rate 18 /min Dr. Rishi Vasquez Work Phone: 2(765)653-156042 [place] [address] 04-20-2023 08:51-0400 SaO2% (BldA) [Mass fraction] 99 % Dr. Rishi Vasquez Work Phone: 4(024)404-007982 [place] [address] 04-20-2023 08:51-0400 Systolic blood pressure 147 mm[Hg] Dr. Rishi Vasquez Work Phone: 9(137)570-915982 [place] [address] 12-05-2022 09:40-0500 Body temperature 97.3 [degF] Rishi Vasquez DO Work Phone: [facility] 12-05-2022 09:40-0500 Body weight 72.58 kg Rishi Vasquez DO Work Phone: [facility] [place] 12-05-2022 09:40-0500 Diastolic blood pressure 82 mm[Hg] Rishi Vasquez DO Work Phone: [facility] [place] 12-05-2022 09:40-0500 Heart rate 64 /min Rishi Vasquez DO Work Phone: [facility] [place] 12-05-2022 09:40-0500 Respiratory rate 16 /min Rishi Vasquez DO Work Phone: [facility] [place] 12-05-2022 09:40-0500 Systolic blood pressure 126 mm[Hg] Rishi Vasquez DO Work Phone: [facility] [place] 09-23-2022 09:01-0400 Body temperature 97.5 [degF] Camille Athy PA-C Work Phone: [facility] [place] 09-23-2022 09:01-0400 Body weight 74.93 kg Camille Athy PA-C Work Phone: [facility] [place] 09-23-2022 09:01-0400 Diastolic blood pressure 72 mm[Hg] Camille Athy PA-C Work Phone: [facility] [place] 09-23-2022 09:01-0400 Heart rate 62 /min Camille Athy PA-C Work Phone: [facility] [place] 09-23-2022 09:01-0400 Respiratory rate 21 /min Camille Athy PA-C Work Phone: [facility] [place] 09-23-2022 09:01-0400 SaO2% (BldA) [Mass fraction] 99 % Camille Athy PA-C Work Phone: [facility] [place] 09-23-2022 09:01-0400 Systolic blood pressure 160 mm[Hg] Camille Athy PA-C Work Phone: [facility] 08-15-2022 12:13-0400 Body temperature 97.81 [degF] Camille Athy PA-C Work Phone: [facility] 08-15-2022 12:13-0400 Body weight 75.03 kg Camille Athy PA-C Work Phone: [facility] 08-15-2022 12:13-0400 Diastolic blood pressure 86 mm[Hg] Camille Athy PA-C Work Phone: [facility] 08-15-2022 12:13-0400 Heart rate 49 /min Camille Athy PA-C Work Phone: [facility] 08-15-2022 12:13-0400 Respiratory rate 18 /min Camille Athy PA-C Work Phone: [facility] [place] 08-15-2022 12:13-0400 SaO2% (BldA) [Mass fraction] 98 % Camille Athy PA-C Work Phone: [facility] 08-15-2022 12:13-0400 Systolic blood pressure 162 mm[Hg] Camille Athy PA-C Work Phone: [facility] 08-08-2022 09:30-0400 Body height 167.[address] Rishi Vasquez Work Phone: [facility] Work Phone: 08-08-2022 09:30-0400 Body mass index (BMI) [Ratio] 26.6 kg/m2 Dr. Rishi Vasquez Work Phone: [facility] Work Phone: 08-08-2022 09:30-0400 Body weight 74.[address] Rishi Vasquez Work Phone: [facility] Work Phone: 08-08-2022 09:30-0400 Diastolic blood pressure 51 mm[Hg] Dr. Rishi Vasquez Work Phone: [facility] Work Phone: 08-08-2022 09:30-0400 Heart rate 46 /min Dr. Rishi Vasquez Work Phone: [facility] Work Phone: 08-08-2022 09:30-0400 Respiratory rate 16 /min Dr. Rishi Vasquez Work Phone: [facility] Work Phone: 08-08-2022 09:30-0400 Systolic blood pressure 126 mm[Hg] Dr. Rishi Vasquez Work Phone: [facility] Work Phone: 06-29-2022 09:35-0400 Diastolic blood pressure 71 mm[Hg] Dr. Rishi Vasquez Work Phone: [facility] Work Phone: 06-29-2022 09:35-0400 Respiratory rate 18 /min Dr. Rishi Vasquez Work Phone: [facility] Work Phone: 06-29-2022 09:35-0400 Systolic blood pressure 164 mm[Hg] Dr. Rishi Vasquez Work Phone: [facility] Work Phone: 06-17-2022 08:24-0400 Body temperature 97.9 [degF] Kena Older [employer]A MECHANIC.MARKETING RECRUITER Work Phone: [facility] 06-17-2022 08:24-0400 Body weight 76.39 kg Kena Older [employer] MECHANIC.MARKETING RECRUITER Work Phone: [facility] 06-17-2022 08:24-0400 Diastolic blood pressure 80 mm[Hg] Kena Older [employer]A MECHANIC.MARKETING RECRUITER Work Phone: [facility] 06-17-2022 08:24-0400 Heart rate 59 /min Kena Older [employer]UPOLA MECHANIC.MARKETING RECRUITER Work Phone: [facility] 06-17-2022 08:24-0400 Respiratory rate 20 /min Kena Older [employer]A MECHANIC.MARKETING RECRUITER Work Phone: [facility] [place] 06-17-2022 08:24-0400 SaO2% (BldA) [Mass fraction] 97 % Kena Older [employer]UPOLA MECHANIC.MARKETING RECRUITER Work Phone: [facility] 06-17-2022 08:24-0400 Systolic blood pressure 158 mm[Hg] Kena Older [employer]A MECHANIC.MARKETING RECRUITER Work Phone: [facility] 05-31-2022 10:19-0400 Body temperature 98.29 [degF] Rishi Del Rosarioon DO Work Phone: [facility] 05-31-2022 10:19-0400 Body weight 75.3 kg Rishi Vasquez DO Work Phone: [facility] 05-31-2022 10:19-0400 Diastolic blood pressure 70 mm[Hg] Rishi Taterison DO Work Phone: [facility] 05-31-2022 10:19-0400 Heart rate 56 /min Rishi Taterison DO Work Phone: [facility] 05-31-2022 10:19-0400 Systolic blood pressure 116 mm[Hg] Rishi Taterison DO Work Phone: [facility] 02-07-2022 08:55-0400 Body height 167.[address] Rishi Vasquez Work Phone: [facility] Work Phone: 02-07-2022 08:55-0400 Body mass index (BMI) [Ratio] 26.9 kg/m2 Dr. Rishi Vasquez Work Phone: [facility] Work Phone: 02-07-2022 08:55-0400 Body weight 75.[address] Rishi Vasquez Work Phone: [facility] Work Phone: 02-07-2022 08:55-0400 Diastolic blood pressure 68 mm[Hg] Dr. Rishi Vasquez Work Phone: [facility] Work Phone: 02-07-2022 08:55-0400 Heart rate 63 /min Dr. Rishi Vasquez Work Phone: [facility] Work Phone: 02-07-2022 08:55-0400 Respiratory rate 18 /min Dr. Rishi Vasquez Work Phone: [facility] Work Phone: 02-07-2022 08:55-0400 SaO2% (BldA) [Mass fraction] 100 % Dr. Rishi Vasquez Work Phone: [facility] Work Phone: 02-07-2022 08:55-0400 Systolic blood pressure 152 mm[Hg] Dr. Rishi Vasquez Work Phone: [facility] Work Phone: 01-20-2022 09:42-0500 Body temperature 97.6 [degF] Dr. Rishi Vsaquez Work Phone: [facility] Work Phone: 01-20-2022 09:42-0500 Diastolic blood pressure 56 mm[Hg] Dr. Rishi Vasquez Work Phone: [facility] Work Phone: 01-20-2022 09:42-0500 Heart rate 75 /min Dr. Rishi Vasquez Work Phone: [facility] Work Phone: 01-20-2022 09:42-0500 Respiratory rate 16 /min Dr. Rishi Vasquez Work Phone: [facility] Work Phone: 01-20-2022 09:42-0500 SaO2% (BldA) [Mass fraction] 98 % Dr. Rsihi Vasquez Work Phone: [facility] Work Phone: 01-20-2022 09:42-0500 Systolic blood pressure 123 mm[Hg] Dr. Rishi Vasquez Work Phone: [facility] Work Phone: 12-29-2021 08:28-0500 Body mass index (BMI) [Ratio] 27.1 kg/m2 Dr. Rishi Vasquez Work Phone: [facility] Work Phone: 12-29-2021 08:28-0500 Body temperature 97.8 [degF] Dr. Rishi Vasquez Work Phone: [facility] Work Phone: 12-29-2021 08:28-0500 Body weight 76.[address] Rishi Vasquez Work Phone: [facility] Work Phone: 12-29-2021 08:28-0500 Diastolic blood pressure 64 mm[Hg] Dr. Rishi Vasquez Work Phone: [facility] Work Phone: 12-29-2021 08:28-0500 Heart rate 60 /min Dr. Rishi Vasquez Work Phone: [facility] Work Phone: 12-29-2021 08:28-0500 Respiratory rate 17 /min Dr. Rishi Vasquez Work Phone: [facility] Work Phone: 12-29-2021 08:28-0500 SaO2% (BldA) [Mass fraction] 97 % Dr. Rishi Vasquez Work Phone: [facility] Work Phone: 12-29-2021 08:28-0500 Systolic blood pressure 182 mm[Hg] Dr. Rishi Vasquez Work Phone: [facility] Work Phone: 10-18-2021 23:19-0500 Body mass index (BMI) [Ratio] 26.9 kg/m2 Dr. Rishi Vasquez Work Phone: [facility] Work Phone: 08-30-2017 15:31-0400 BMI (Body Mass Index) 29.78 kg/m2 Kwaku Moscoso MD [facility] Work Phone: 08-30-2017 15:31-0400 Body Temperature 98.1 [degF] Kwaku Moscoso MD [facility] [employer] Work Phone: 08-30-2017 15:31-0400 BP Diastolic 73 mm[Hg] Kwaku Moscoso MD [facility] [employer] Work Phone: 08-30-2017 15:31-0400 BP Systolic 156 mm[Hg] Kwaku Moscoso MD [facility] [employer] Work Phone: 08-30-2017 15:31-0400 Height 165.1 cm Kwaku Moscoso MD [facility] Work Phone: 08-30-2017 15:31-0400 Pulse (Heart Rate) 54 /min Kwaku Moscoso MD [facility] Work Phone: 08-30-2017 15:31-0400 Respiratory Rate 18 /min Kwaku Moscoso MD [facility] Work Phone: 08-30-2017 15:31-0400 Weight 81.19 kg Kwaku Moscoso MD [facility] Work Phone: 06-11-2017 10:53-0400 BMI (Body Mass Index) 29.7 kg/m2 [facility] Work Phone: 06-11-2017 10:53-0400 BP Diastolic 60 mm[Hg] [facility] Work Phone: 06-11-2017 10:53-0400 BP Systolic 142 mm[Hg] Gaye Kenroy [facility] Work Phone: 06-11-2017 10:53-0400 Height 167.64 cm Gaye Jasmine [facility] Work Phone: 06-11-2017 10:53-0400 [...] BP Diastolic 72 mm[Hg] Shaina Serna LPN [facility] Work Phone: 04-23-2017 11:14-0400 BP Systolic 125 mm[Hg] Shaina Serna LPN [facility] Work Phone: 04-23-2017 11:14-0400 Height 167.64 cm Shaina Kareem [facility] Work Phone: 04-23-2017 11:14-0400 Pulse (Heart Rate) 60 /min Shaina Serna [facility]PN [facility] Work Phone: 04-23-2017 11:14-0400 Pulse Oximetry 98 % Shaina aKreem [facility] Work Phone: 04-23-2017 11:14-0400 Respiratory Rate 18 /min Shaina Kareem [facility] Work Phone: 04-23-2017 11:14-0400 Weight 84.55 kg Marly Signs MD [facility] Work Phone: 02-06-2017 12:57-0400 Body Temperature 98.4 [degF] Shaina Serna [facility]PN [facility] Work Phone: 02-06-2017 12:57-0400 Body weight 80.92 kg Shaina Serna LPN [facility] Work Phone: 02-06-2017 12:57-0400 BP Diastolic 76 mm[Hg] Shaina Serna LPN [facility] Work Phone: 02-06-2017 12:57-0400 BP Systolic 140 mm[Hg] Shaina Serna LPN [facility] Work Phone: 02-06-2017 12:57-0400 BSA (Body Surface Area) 1.91 m2 Shaina [facility] Work Phone: 02-06-2017 12:57-0400 Height 167.64 cm Shaina [facility] Work Phone: 02-06-2017 12:57-0400 Weight 80.92 kg Marly Signs MD [facility] Work Phone: 12-05-2016 12:56-0500 Pulse Oximetry 98 % Shaina Serna LPN [facility] Work Phone: 11-17-2016 07:54-0500 Body surface area Derived from formula 45.87 mL/min Shaina Serna ANGELO [facility] Work Phone: 05-25-2015 14:56-0400 Heart rate 55 /min Shaina Serna LPN [facility] Work Phone: 01-12-2014 13:16-0500 Heart rate 406 ms Shaina Serna LPN [facility] Work Phone: Encounters Encounter Date Encounter Type Care Provider Facility Start: 06-30-2025 ambulatory Rishi Vasquez Facilit y:[facility] Start: 05-26-2025 ambulatory Rishi Vasquez Facilit y:[facility] Start: 05-17-2025 Encounter for other preprocedural examination Russell Clement [facility] Start: 05-17-2025 Emergency department patient visit Rishi Vasquez Facility:[facility] Start: 05-13-2025 End: 05-13-2025 Abena VYAS -[facility] Work Phone: Start: 05-13-2025 End: 05-13-[address] Rishi Vasquez DO Work Phone: [facility] Work Phone: Start: 05-12-2025 Encounter for preprocedural cardiovascular examination Jarret Quiles [facility] Start: 05-11-2025 ambulatory Rishi Dewey y:[facility] Start: 05-11-2025 Non-patient / Non-visit Dr. Jarret walden MD -[facility] Start: 05-11-2025 Dr. Jarret Quiles MD -[facility] Start: 05-08-2025 End: 05-08-[address] Rishi Vasquez DO Work Phone: [facility] Work Phone: Start: 05-08-2025 End: 05-08-[address] Jarret Quiles MD -[facility] Services Work Phone: Start: 05-08-2025 End: 05-08-2025 Dr. Jarret Quiles MD -[facility] Services Work Phone: Start: 05-07-2025 End: 05-07-2025 Patient encounter procedure Rick Bergeron NP-Andrés -[facility] Work Phone: Start: 05-07-2025 End: 05-07-2025 Patient encounter status Rick Bergeron CUSTOM TAILOR APPRENTICE-C [facility] Comment on above: Vascular surgery in May Start: 05-07-2025 End: 05-07-2025 Rick Bergeron NP-C -[facility] Work Phone: Start: 05-07-2025 End: 05-08-[address] Rishi Vasquez DO Work Phone: [facility] Work Phone: Start: 05-06-2025 End: 05-07-2025 Telephone encounter Rishi Vasquez DO Work Phone: [facility] Comment on above: Medication Problem Start: 04-30-2025 End: 04-30-2025 Office outpatient visit 25 minutes Fouzia Escobedo APRN.MARKETING RECRUITER Work Phone: [facility] Comment on above: Diabetes mellitus ty pe 2 with peripheral artery disease (HCC) (Primary Dx); Hyperglycemia Start: 04-30-2025 End: 04-30-2025 ambulatory FOUZIA ESCOBEDO Facility:[facility] Start: 04-27-2025 End: 04-27-[address] Rishi Vasquez DO Work Phone: [facility] Work Phone: Start: 04-27-2025 End: 04-27-[address] Ciaran Renee MD -Ultrasound [facility] Work Phone: Start: 04-27-2025 End: 04-27-2025 Dr. Ciaran Renee MD -Ultrasound [facility] Work Phone: Start: 04-27-2025 End: 04-27-2025 ambulatory Rishi Vasquez Facility:[facility] Start: 04-23-2025 ambulatory Rishi Vasquez Facilit y:[facility] Start: 04-23-[address] Rishi ponce DO -Cardiac Rehab Work Phone: Start: 04-23-2025 Dr. Rishi Vasquez DO -Cardiac Rehab Work Phone: Start: 04-21-[address] Rishi ponce DO -Cardiac Rehab Work Phone: Start: 04-20-2025 Non-patient / Non-visit Dr. Russell dobbs MD -[facility] Start: 04-20-2025 End: 04-20-[address] Rishi Vasquez DO Work Phone: [facility] Work Phone: Start: 04-20-2025 End: 04-20-2025 Patient encounter procedure Abena Fiore PA -Cardiovascular Services Work Phone: Start: 04-20-2025 End: 04-20-2025 Dr. Russell Clement MD -[facility] Start: 04-20-2025 End: 04-20-2025 ambulatory Rishi Vasquez Facility:[facility] Start: 04-16-2025 End: 04-16-2025 Telephone encounter Rishi Melinda Pedro DO Work Phone: [facility] Comment on above: Group Home Plan of Care Start: 04-15-2025 ambulatory Rishi Taterison Facilit y:[facility] Start: 04-15-2025 Non-patient / Non-visit Dr. Russell dobbs MD -[facility] Start: 04-15-2025 Dr. Russell Clement MD -[facility] Start: 04-15-2025 End: 04-15-2025 Telephone encounter Fouzia Escobedo APRN.MARKETING RECRUITER Work Phone: [facility] Start: 04-15-2025 End: 04-15-2025 Admission to same day surgery center Dr. Russell Clement MD -Commission Sales Associate/Special Procedures Work Phone: Start: 04-15-2025 End: 04-15-2025 Dr. Russell Clement MD -Commission Sales Associate/Special Procedures Work Phone: Start: 04-15-2025 End: 04-15-[address] Rishi Vasquez DO Work Phone: [facility] Work Phone: Start: 04-07-2025 End: 04-21-2025 ambulatory Rishi Vasquez DO Work Phone: [facility] Comment on above: Diabetes Start: 04-03-2025 End: 04-03-2025 Patient encounter procedure Abena VYAS -[facility] Work Phone: Start: 04-03-2025 End: 04-03-2025 Abena VYAS -[facility] Work Phone: Start: 04-03-2025 End: 04-03-[address] Rishi Vasquez DO Work Phone: [facility] Work Phone: Start: 03-27-2025 End: 03-27-2025 Patient encounter procedure Yumiko Podlogcarlo [employer]A MECHANIC.MARKETING RECRUITER Work Phone: [facility] [place] Comment on above: Hospital discharge f ollow-up (Primary Dx); Diabetic foot ulcer associated with type 2 diabetes mellitus, unspecified laterality, unspecified part of foot, unspecified ulcer stage (HCC); Abnormality of gait; Falling episodes Start: 03-27-2025 End: 03-27-2025 ambulatory YUMIKO PODLOGAR Facility:[facility] Start: 03-26-2025 End: 03-26-2025 Telephone encounter Rishi Vasquez DO Work Phone: [facility] [place] Comment on above: Patient Update Start: 03-24-2025 End: 03-25-2025 Telephone encounter Rishi Vasquez DO Work Phone: [facility] Comment on above: [facility] HH PT POC Start: 03-23-2025 End: 03-24-2025 Telephone encounter Rishi Vasquez DO Work Phone: [facility] [place] Comment on above: HH Nursing POC Start: 03-20-2025 End: 03-23-2025 Telephone encounter Rishi Lawrence Pedro DO Work Phone: [facility] [place] Comment on above: Orders Start: 03-19-2025 End: 03-19-[address] Phong Solomon MD -Cat Scan [facility] Work Phone: Start: 03-19-2025 End: 04-18-[address] Rishi Vasquez DO -Cardiac Rehab Work Phone: Start: 03-19-[address] Rishi ponce DO -Cardiac Rehab Work Phone: Start: 03-19-2025 End: 04-18-2025 Dr. Rishi Vasquez DO -Cardiac Rehab Work Phone: Start: 03-19-2025 End: 04-18-[address] Rishi Vasquez DO Work Phone: [facility] Work Phone: Start: 03-19-2025 End: 03-19-2025 ambulatory Rishi Vasquez Facility:[facility] Start: 03-13-2025 Non-patient / Non-visit Abena VYAS [facility] Start: 03-13-2025 Abena VYAS [facility] Start: 03-11-2025 End: 03-20-2025 Dr. Phong Solomon MD -Transitional Care Unit Start: 03-11-2025 ambulatory Rishi Vasquez Facilit y:[facility] Start: 03-11-2025 End: 03-20-2025 Evaluation and management of inpatient Dr. Phong Solomon MD -Transitional Care Unit Start: 03-11-2025 Non-patient / Non-visit Dr. Broderick Dempsey MD -[facility] Work Phone: Start: 03-11-2025 Dr. Broderick Dempsey MD -[facility] Work Phone: Start: 03-10-2025 Non-patient / Non-visit Dr. Broderick Dempsey MD -[facility] Work Phone: Start: 03-10-2025 Dr. Broderick Dempsey MD -[facility] Work Phone: Start: 03-10-2025 Non-patient / Non-visit Abena Fiore [facility] Start: 03-10-2025 Abena VYAS [facility] Start: 03-09-2025 Non-patient / Non-visit Dr. Russell dobbs MD [facility] Start: 03-09-2025 Dr. Russell Clement MD [facility] Start: 03-08-2025 Non-patient / Non-visit Dr. Broderick Dempsey MD [facility] Work Phone: Start: 03-08-2025 Dr. Broderick Dempsey MD -[facility] Work Phone: Start: 03-07-2025 ambulatory Rishi Vasquez Facilit y:[facility] Start: 03-07-2025 End: 03-11-2025 Evaluation and management of inpatient Dr. Maddie Merchant MD -Medical Surgical 3 Work Phone: Start: 03-07-2025 End: 03-11-2025 Dr. Broderick Dempsey MD -Medical Surgical 3 Work Phone: Start: 02-26-2025 End: 02-26-[address] Rishi Vasquez DO Work Phone: [facility] Work Phone: Start: 02-26-2025 End: 02-26-[address] Patel Irene DPM -Laboratory, Specimen Work Phone: Start: 02-26-2025 End: 02-26-2025 Dr. Patel Irene DPM -Laboratory Specim en Work Phone: Start: 02-26-2025 End: 02-26-2025 ambulatory Rishi Vasquez Facility:[facility] Start: 02-17-2025 End: 03-18-[address] Rishi Vasquez DO -Cardiac Rehab Work Phone: Start: 02-17-[address] Rishi ponce DO -Cardiac Rehab Work Phone: Start: 02-17-2025 End: 03-18-2025 Dr. Rishi Vasquez DO -Cardiac Rehab Work Phone: Start: 02-17-2025 End: 03-18-2025 ambulatory Rishi Vasquez Facility:[facility] Start: 02-16-2025 End: 02-16-[address] Rishi Vasquez DO Work Phone: [facility] Work Phone: Start: 02-16-2025 End: 02-16-[address] Rishi Vasquez DO -Laboratory, Specimen Work Phone: Start: 02-16-2025 End: 02-16-2025 Ciaran Berry DPM -Laboratory Specime n Work Phone: Start: 02-16-2025 End: 02-16-2025 ambulatory Ciaran Berry Facility:[facility] Start: 02-05-2025 End: 02-16-[address] Rishi Vasquez DO Work Phone: [facility] Work Phone: Start: 02-05-2025 End: 02-16-[address] Rishi Vasquez DO -Cardiac Rehab Work Phone: Start: 02-05-2025 End: 02-16-2025 Dr. Rishi Vasquez DO -Cardiac Rehab Work Phone: Start: 01-06-2025 ambulatory Brandon Membreno Facility :[facility] Start: 01-06-2025 Non-patient / Non-visit Dr. Russell dobbs MD -[facility] Start: 01-06-2025 End: 01-06-[address] Brandon Membreno DPM -Cardiovascular Services Work Phone: Start: 01-06-2025 End: 01-06-2025 ambulatory Rishi Vasquez Facility:[facility] Start: 12-30-2024 End: 12-30-[address] Patel Irene DPM -Laboratory, Specimen Work Phone: Start: 12-30-2024 End: 12-30-2024 ambulatory Patel Irene Facility:[facility] Start: 12-25-2024 End: 12-26-2024 Refill Rishi Vasquez DO Work Phone: [facility] Comment on above: Refill Request Start: 12-23-2024 End: 01-16-[address] Rishi Vasquez DO -Cardiac Rehab Work Phone: Start: 12-23-2024 End: 01-16-[facility] Start: 12-18-2024 End: 12-19-2024 [facility] [place] Facility:[facility] Start: 12-18-2024 End: 12-19-[address] Rishi Vasquez DO -Cardiac Rehab Work Phone: Start: 12-17-2024 End: 12-17-[address] Brandon Membreno DPM -Laboratory, Specimen Work Phone: Start: 12-17-2024 End: 12-17-2024 ambulatory Rishi Taterison Facility:[facility] Start: 12-05-2024 End: 12-05-2024 Patient encounter procedure Rishi Vasquez DO Work Phone: [facility] Comment on above: Diabetes mellitus [...] 12-05-2024 End: 12-05-2024 ambulatory RISHI L VASQUEZ Facility:[facility] Start: 12-01-2024 End: 12-01-2024 ambulatory RISHI L VASQUEZ Facility:[facility] Start: 11-29-2024 ambulatory Rishi Taterison Facilit y:[facility] Start: 11-18-2024 End: 11-18-2024 ambulatory Rishi Taterison Facility:[facility] Start: 11-18-2024 End: 11-18-[address] Rishi Vasquez DO -Cardiac Rehab Work Phone: Start: 10-14-2024 End: 10-18-2024 ambulatory Rishi Vasquez Facility:[facility] Start: 09-18-2024 End: 09-18-2024 ambulatory Rishi Vasquez Facility:[facility] Start: 09-10-2024 End: 09-15-2024 Telephone encounter Rishi Taterison DO Work Phone: [facility] Comment on above: Patient Question Start: 09-05-2024 End: 09-05-2024 Patient encounter procedure [facility] Nurse [place] Work Phone: [facility] Start: 09-05-2024 End: 09-05-2024 ambulatory Immunization [facility] Nurse [place] Work Phone: [facility] Start: 08-18-2024 End: 08-19-2024 Telephone encounter Rishi Taterison DO Work Phone: [facility] [place] Comment on above: Patient Question (Fi sh oil - [place] 3) Start: 08-16-2024 End: 08-18-2024 ambulatory Rishi L Vasquez DO Work Phone: [facility] Comment on above: OMEGA 3 FROM FISH OI L Start: 08-14-2024 End: 08-18-2024 ambulatory Rishi Vasquez Facility:[facility] Start: 08-08-2024 End: 08-12-2024 Telephone encounter Rishi L Vasquez DO Work Phone: [facility] Comment on above: Patient Update Start: 08-01-2024 End: 08-01-2024 ambulatory Curtis Franco Facility:[facility] Start: 07-17-2024 End: 07-19-2024 ambulatory Rishi Vasquez Facility:[facility] Start: 06-19-2024 End: 06-19-2024 ambulatory Curtis Franco Facility:[facility] Start: 06-17-2024 End: 06-18-2024 ambulatory Rishi Vasquez Facility:[facility] Start: 06-13-2024 Telephone encounter Rishi julian DO Work Phone: [facility] [place] Start: 06-10-2024 ambulatory No Pcp CUPOLA MECHANIC [facility] Start: 06-10-2024 Patient encounter procedure No Pcp CUPOLA MECHANIC [facility] Start: 06-04-2024 Documentation procedure Mammog rain Coordinator [facility] Start: 06-04-2024 Letter encounter Mammography Coordinator [facility] Start: 06-04-2024 Telephone encounter Rishi julian DO Work Phone: [facility] [place] Comment on above: Results Start: 06-04-2024 End: 06-04-2024 ambulatory RISHI VASQUEZ Facility:[facility] Start: 06-04-2024 End: 06-04-2024 Patient encounter procedure Rishi Vasquez DO Work Phone: [facility] [place] Comment on above: Chronic midline low back [...] nodules Start: 06-03-2024 End: 06-03-2024 ambulatory RISHI VASQUZE Facility:[facility] Start: 06-03-2024 End: 06-03-2024 Subsequent hospital visit by physician Screen M[facility] Comment on above: Encounter for screen ing mammogram for malignant neoplasm of breast [Z12.31] Start: 05-30-2024 End: 05-30-2024 ambulatory CLARY ANDRES Facility:[facility] Start: 05-19-2024 Telephone encounter Rishi julian DO Work Phone: [facility] Comment on above: Orders Start: 05-18-2024 ambulatory Rishi contreras DO Work Phone: [facility] Comment on above: Blood work Start: 03-22-2024 Refill Rishi Wright son DO Work Phone: [facility] Comment on above: Refill Request Start: 03-20-2024 End: 03-20-2024 ambulatory Anselmo Marr PT Work Phone: [facility] Comment on above: 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 Rishi Vasquez Work Phone: [facility] Work Phone: Start: 03-18-2024 End: 03-18-[address] Rishi Vasquez Work Phone: [facility]-Cardiac Rehab Work Phone: Start: 03-13-[address] Jim Vasquez Work Phone: [facility]-Cardiac Rehab Work Phone: Start: 03-11-2024 Non-patient / Non-visit Dr. Marcie Vasquez Work Phone: [facility] Start: 03-11-2024 End: 03-11-[address] Rishi Vasquez Work Phone: [facility] Work Phone: Start: 03-11-2024 End: 03-11-[address] Rishi Vasquez Work Phone: [facility]-Cardiovascul ar Services Work Phone: Start: 03-10-2024 End: 03-10-2024 ambulatory Keisha Herreraba HAIR SAMPLE MATCHER Work Phone: [facility] Comment on above: 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) Start: 03-06-2024 End: 03-06-2024 ambulatory Anselmo Golias PT Work Phone: [facility] Comment on above: 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) Start: 02-14-2024 End: 02-17-[address] Rsihi Vasquez Work Phone: [facility] Work Phone: Start: 02-14-2024 End: 02-17-[address] Rishi Vasquez Work Phone: [facility]-Cardiac Rehab Work Phone: Start: 02-07-2024 End: 02-07-[address] Rishi Vasquez Work Phone: [facility] [facility] Work Phone: Start: 02-05-2024 End: 02-05-2024 ambulatory Keisha Guzman HAIR SAMPLE MATCHER Work Phone: [facility] Comment on above: 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) Start: 01-30-2024 End: 01-30-2024 ambulatory Anselmo Golias PT Work Phone: [facility] Comment on above: 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) Start: 01-28-2024 Refill Clary Andres APRN.MARKETING RECRUITER Work Phone: [facility] Comment on above: Refill Request Start: 01-23-2024 End: 01-23-2024 ambulatory Anselmo Golias PT Work Phone: [facility] Comment on above: 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) Start: 01-17-2024 End: 01-17-2024 ambulatory [facility] Work Phone: Start: 01-17-2024 End: 01-17-2024 Discharged Recurring [facility]-Cardiac Rehab Work Phone: Start: 01-15-2024 End: 01-15-2024 ambulatory Anselmo Marr PT Work Phone: [facility] Comment on above: Chronic midline low back pain without sciatica Start: 01-14-2024 ambulatory Rishi contreras DO Work Phone: [facility] Start: 01-14-2024 Patient encounter procedure Rishi Vasquez DO Work Phone: [facility] [place] Comment on above: APPOINTMENT WITH GEN PEPPER SURGEON Start: 01-10-2024 Telephone encounter Rishi julian DO Work Phone: [facility] [place] Comment on above: Results Start: 12-27-2023 ambulatory Rishi conrteras DO Work Phone: [facility] Comment on above: MEDICATION QUESTION Start: 12-27-2023 Telephone encounter Rishi julian DO Work Phone: [facility] [place] Comment on above: Patient Update Start: 12-20-2023 End: 12-20-2023 Subsequent hospital visit by physician [facility] Work Phone: Radiology Comment on above: Multiple thyroid nod ules [E04.2] Start: 12-18-2023 End: 12-19-2023 Discharged Recurring [facility]-Cardiac Rehab Work Phone: Start: 12-10-2023 End: 12-10-2023 Subsequent hospital visit by physician Daniela [facility] Work Phone: Radiology Comment on above: Chronic midline low back pain without sciatica [M54.50, G89.29] Start: 11-15-2023 End: 11-18-2023 ambulatory [facility] Work Phone: Start: 11-15-2023 End: 11-18-2023 Discharged Recurring [facility]-Cardiac Rehab Work Phone: Start: 10-18-2023 End: 10-18-[address] Rishi Vasquez Work Phone: [facility] Work Phone: Start: 10-18-2023 End: 10-18-[address] Rishi Vasquez Work Phone: [facility]-Cardiac Rehab Work Phone: Start: 10-03-2023 Refill Rishi contreras DO Work Phone: [facility] Comment on above: Refill Request Start: 09-18-2023 End: 09-18-[address] Rishi Vasquez Work Phone: [facility] Work Phone: Start: 09-18-2023 End: 09-18-[address] Rishi Vasquez Work Phone: [facility]-Cardiac Rehab Work Phone: Start: 09-13-[address] Jim Vasquez Work Phone: [facility]-Cardiac Rehab Work Phone: Start: 08-31-2023 End: 08-31-2023 ambulatory [facility] Nurse [place] Work Phone: [facility] Start: 08-18-2023 Telephone encounter Rishi julian DO Work Phone: [facility] Comment on above: Results Start: 08-16-2023 End: 08-16-[address] Rishi Vasquez Work Phone: [facility]-Laboratory Work Phone: Start: 08-16-2023 End: 08-18-[address] Rishi Vasquez Work Phone: [facility] Work Phone: Start: 08-16-2023 End: 08-18-[address] Rishi Vasquez Work Phone: [facility]-Cardiac Rehab Work Phone: Start: 07-31-2023 Telephone encounter Rishi julian DO Work Phone: [facility] Comment on above: Results Start: 07-31-[address] Jim Vasquez Work Phone: [facility]-Cardiac Rehab Work Phone: Start: 07-26-2023 End: 07-26-[address] Rishi Vasquez Work Phone: [facility] Work Phone: Start: 07-26-2023 End: 07-26-[address] Rishi Vasquez Work Phone: [facility]-Laboratory, Specimen Work Phone: Start: 07-19-2023 End: 07-19-[address] Rishi Vasquez Work Phone: [facility] Work Phone: Start: 07-19-2023 End: 07-19-[address] Rishi Vasquez Work Phone: [facility]-Cardiac Rehab Work Phone: Start: 07-10-2023 Telephone encounter Danyelle allen PA-C Work Phone: [facility] Comment on above: Results Start: 07-10-2023 End: 07-10-2023 Subsequent hospital visit by physician Diagnostic M[facility] Comment on above: Abnormal mammogram [ R92.8] Start: 07-03-2023 End: 07-03-[address] Rishi Vasquez Work Phone: [facility] Work Phone: Start: 06-14-2023 End: 06-18-[address] Rishi Vasquez Work Phone: [facility] Work Phone: Start: 06-14-2023 End: 06-18-[address] Rishi Vasquez Work Phone: [facility]-Cardiac Rehab Work Phone: Start: 06-14-[address] Jim Vasquez Work Phone: [facility]-Cardiac Rehab Work Phone: Start: 06-12-2023 Non-patient / Non-visit Dr. Marcie Vasquez Work Phone: [facility] Start: 06-12-2023 End: 06-12-[address] Rishi Vasquez Work Phone: [facility] Work Phone: Start: 06-12-2023 End: 06-12-[address] Rishi Vasquez Work Phone: [facility]-Cardiovascul ar Services Work Phone: Start: 06-04-2023 End: 06-04-2023 Patient encounter procedure Rishi Vasquez DO Work Phone: [facility] Comment on above: Dysuria (Primary Dx) ; Acute cystitis with hematuria; Peripheral vascular occlusive disease (HCC); 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); CKD stage G3b/A1, GFR 30-44 and albumin creatinine ratio <30 mg/g (HCC); Dyslipidemia (high LDL; low HDL); Vitamin D deficiency; Multinodular thyroid; Essential hypertension; Arthritis, multiple joint involvement Start: 05-29-2023 Documentation procedure Mammog rain Coordinator [facility] Start: 05-29-2023 Letter encounter Mammography Coordinator [facility] Start: 05-29-2023 Telephone encounter Danyelle allen PA-C Work Phone: [facility] Comment on above: Results Start: 05-29-2023 End: 05-29-2023 Subsequent hospital visit by physician [facility] Comment on above: Encounter for screen ing mammogram for malignant neoplasm of breast [Z12.31] Start: 05-27-2023 Refill Rishi Melinda Adriana son DO Work Phone: [facility] Comment on above: Refill Request Start: 05-17-2023 End: 05-18-[address] Rishi Vasquez Work Phone: [facility] Work Phone: Start: 05-17-2023 End: 05-18-[address] Rishi Vasquez Work Phone: [facility]-Cardiac Rehab Work Phone: Start: 04-20-2023 End: 04-20-[address] Rishi Vasquez Work Phone: [facility] Work Phone: Start: 04-17-2023 End: 04-18-2023 ambulatory [facility] Work Phone: Start: 04-17-2023 End: 04-18-2023 Discharged Recurring [facility]-Cardiac Rehab Start: 03-15-2023 End: 03-18-2023 ambulatory [facility] Work Phone: Start: 03-15-2023 End: 03-18-2023 Discharged Recurring [facility]-Cardiac Rehab Start: 03-12-2023 Telephone encounter Rishi julian DO Work Phone: [facility] Comment on above: Release Of Medical R ecords Start: 02-27-2023 ambulatory Rishi Wright son DO Work Phone: [facility] [place] Start: 02-15-2023 End: 02-16-[address] Rishi Vasquez Work Phone: [facility] Work Phone: Start: 02-15-2023 End: 02-16-[address] Rishi Vasquez Work Phone: [facility]-Cardiac Rehab Start: 02-05-2023 ambulatory Rishi Wright son DO Work Phone: [facility] Comment on above: MAMOGRAM Start: 01-22-2023 Telephone encounter Rishi strangekris DO Work Phone: [facility] Comment on above: Appointment; Phuong VYAS Start: 01-16-2023 End: 01-16-[address] Rishi Vasquez Work Phone: [facility] Work Phone: Start: 01-16-2023 End: 01-16-[address] Rishi Vasquez Work Phone: [facility]-Cardiac Rehab Start: 01-08-2023 Refill Clary Andres APRN.CNP Work Phone: [facility] Comment on above: Refill Request Start: 01-04-2023 Telephone encounter Rishi strangekris DO Work Phone: [facility] Comment on above: Results Start: 12-29-2022 End: 12-29-2022 Subsequent hospital visit by physician [facility] Work Phone: Nuclear Medicine Comment on above: Abnormal thyroid fun ction test [R94.6] Start: 12-28-2022 End: 12-28-2022 Subsequent hospital visit by physician [facility] Work Phone: Nuclear Medicine Comment on above: Abnormal thyroid fun ction test [R94.6] Start: 12-26-2022 Telephone encounter Rishi julian DO Work Phone: [facility] Comment on above: Results Start: 12-20-2022 End: 12-20-2022 Subsequent hospital visit by physician [facility] [place] [place] [facility] Work Phone: Radiology Comment on above: Abnormal thyroid fun ction test [R94.6] Start: 12-19-2022 End: 12-19-[address] Rishi Vasquez Work Phone: [facility] Work Phone: Start: 12-19-2022 End: 12-19-[address] Rishi Vasquez Work Phone: [facility]-Cardiac Rehab Start: 12-07-2022 Telephone encounter Rishi julian DO Work Phone: [facility] Comment on above: testing question Start: 12-05-2022 End: 12-05-2022 Patient encounter procedure Rishi Vasquez DO Work Phone: [facility] Comment on above: Diabetes mellitus ty pe 2 with peripheral artery disease (HCC) (Primary Dx); Peripheral vascular occlusive disease (HCC); Dyslipidemia (high LDL; low HDL); Essential hypertension; Dizziness; Carotid atherosclerosis, bilateral; Biceps rupture, proximal, left, initial encounter; Chronic kidney disease, stage 3a (HCC) Start: 11-16-2022 End: 11-18-[address] Rishi Vasquez Work Phone: [facility] Work Phone: Start: 11-16-2022 End: 11-18-[address] Rishi Vasquez Work Phone: [facility]-Cardiac Rehab Start: 11-02-[address] Jim Vasquez Work Phone: [facility]-Cardiac Rehab Start: 10-27-2022 Non-patient / Non-visit Dr. Marcie Vasquez Work Phone: [facility] Start: 10-27-2022 End: 10-27-[address] Rishi Vasquez Work Phone: [facility] Work Phone: Start: 10-27-2022 End: 10-27-[address] Rishi Vasquez Work Phone: [facility]-Cardiovascul ar Services Start: 10-17-2022 End: 10-18-[address] Rishi Vasquez Work Phone: [facility] Work Phone: Start: 10-17-2022 End: 10-18-[address] [facility] Start: 09-23-2022 End: 09-23-2022 Patient encounter procedure Camille Mitchell PA-C Work Phone: [facility] Comment on above: Acute cystitis with hematuria (Primary Dx) Start: 09-14-2022 End: 09-18-[address] Rishi Vasquez Work Phone: [facility] Work Phone: Start: 09-14-2022 End: 09-18-[address] Rishi [facility]quez [facility] Start: 09-09-2022 End: 09-09-2022 ambulatory [facility] Nurse [place] Work Phone: [facility] Comment on above: Arrived Start: 09-06-2022 Telephone encounter Rishi julian DO Work Phone: [facility] Comment on above: Results Start: 08-17-2022 End: 08-18-[address] Rishi Vasquez Work Phone: [facility] Work Phone: Start: 08-17-2022 End: 08-18-[address] [facility]ishi [facility] Start: 08-15-2022 End: 08-15-2022 Subsequent hospital visit by physician Xr [facility] Work Phone: Radiology Comment on above: Injury of sternum, i nitial encounter [S29.9XXA] Start: 08-15-2022 End: 08-15-2022 Patient encounter procedure Camille Mitchell PA-C Work Phone: [facility] Comment on above: Injury of sternum, i nitial encounter (Primary Dx); Wrist injury, right, initial encounter Start: 08-08-2022 End: 08-08-[address] Rishi Vasquez Work Phone: [facility] Start: 07-18-2022 End: 07-19-[address] Rishi Vasquez Work Phone: [facility] Work Phone: Start: 07-18-2022 End: 07-19-[address] Rishi Vasquez Work Phone: [facility]-Cardiac Rehab Start: 06-29-2022 End: 06-29-[address] Rishi Vasquez Work Phone: [facility] Start: 06-22-2022 Non-patient / Non-visit Dr. Marcie Vasquez Work Phone: [facility] Start: 06-22-2022 End: 06-22-[address] Rishi Vasquez Work Phone: [facility]-Cardiovascul ar Services Start: 06-17-2022 End: 06-17-2022 Subsequent hospital visit by physician [facility] Work Phone: Radiology Comment on above: Acute pain of right shoulder [M25.511] Start: 06-17-2022 End: 06-17-2022 Patient encounter procedure Kena Sims APRN.MARKETING RECRUITER Work Phone: [facility] Comment on above: Acute pain of right shoulder (Primary Dx) Start: 06-15-2022 End: 06-18-2022 Discharged Recurring [facility]Card[facility] Re[facility] Start: 06-05-2022 Documentation procedure Mammog rain Coordinator [facility] Start: 06-05-2022 Letter encounter Mammography Coordinator [facility] Start: 06-05-2022 Telephone encounter Dillon Cid APRN.MARKETING RECRUITER Work Phone: [facility] [place] Comment on above: Results; Appointment Start: 06-05-2022 End: 06-05-2022 Subsequent hospital visit by physician Screen M[facility] Comment on above: Encounter for screen ing mammogram for malignant neoplasm of breast [Z12.31] Start: 05-31-2022 End: 05-31-2022 Patient encounter procedure Rishi Vasquez DO Work Phone: [facility] Comment on above: Diabetes mellitus ty pe 2 with peripheral artery disease (HCC) (Primary Dx); Peripheral vascular occlusive disease (HCC); Vitamin D deficiency; Stage 3 chronic kidney disease, unspecified whether stage 3a or 3b CKD (HCC); Essential hypertension; Dyslipidemia (high LDL; low HDL); Arthritis, multiple joint involvement; Coronary artery disease involving [place] heart, unspecified vessel or lesion type, unspecified whether angina present; Fatigue, unspecified type Start: 05-24-2022 Telephone encounter Rishi julian DO Work Phone: General Surgery Comment on above: Outpatient [place] [facility] Start: 05-18-2022 End: 05-18-2022 Discharged Recurring [facility] Start: 05-01-2022 Refill Rishi Tatedolly contreras DO Work Phone: [facility] Comment on above: Refill Request Start: 04-25-2022 ambulatory Rishi contreras DO Work Phone: [facility] Comment on above: BLOOD WORK Start: 04-21-2022 Refill Dillon mcclure APRN.MARKETING RECRUITER Work Phone: [facility] Comment on above: Refill Request Start: 04-18-2022 End: 04-18-[address] Rishi Vasquez Work Phone: [facility]-Cardiac Rehab Start: 03-22-2022 Refill Rishi Wright son DO Work Phone: [facility] Comment on above: Refill Request Start: 03-16-2022 End: 03-18-[address] [facility]quez [facility] Start: 02-24-2022 Telephone encounter Dillon Cid APRN.MARKETING RECRUITER Work Phone: [facility] Comment on above: Results Start: 02-16-2022 End: 02-16-[address] Rishi Vasquez Work Phone: [facility]Cardiac Re[facility] Start: 02-07-2022 End: 02-07-[address] Rishi Vasquez Work Phone: [facility] Start: 01-20-2022 Non-patient / Non-visit Dr. Marcie Vasquez Work Phone: [facility] Start: 01-20-2022 End: 01-20-2022 Admission to same day surgery center Dr. Rishi Vasquez Work Phone: [facility]-Endoscopy Start: 01-10-2022 End: 01-16-[address] Rishi Vasquez Work Phone: [facility]Cardiac Re[facility] Start: 12-29-2021 End: 12-29-[address] Rishi Vasquez Work Phone: [facility] Start: 12-15-2021 End: 12-19-[address] Rishi Vasquez Work Phone: [facility]Cardiac [facility] Start: 11-17-2021 End: 11-18-[address] Rishi Vasquez Work Phone: [facility] Procedures Date Procedure Procedure Detail Performing [...] Start: 05-29-2023 End: 05-29-2023 Mammography Clary Andres CUPOLA MECHANIC.MARKETING RECRUITER Work Phone: Start: 12-29-2022 Thyroid uptake w/blo od flow sngle/mult jamari natalia Rishi Lawrence Vasquez DO Work Phone: Start: 12-20-2022 Us soft tissue head & neck real time imge docm Rishi Lawrence Vasquez DO Work Phone: Start: 09-23-2022 Urnls dip stick/tabl et rgnt auto w/o microscopy Patel Aquino CUPOLA MECHANIC.MARKETING RECRUITER Work Phone: Start: 09-09-2022 INFLUENZA SEASONAL QUADRIVALENT HIGH DOSE AGE 65+ Rishi Melinda Del Rosarioon DO Work Phone: Start: 08-15-2022 Radex wrist complete minimum 3 views Camille Mitchell PA-C Work Phone: Start: 06-17-2022 Radex shoulder compl ete minimum 2 views Kena Schrader CUPOLA MECHANIC.MARKETING RECRUITER Work Phone: Start: 06-05-2022 End: 06-05-2022 Screening mammography bi 2-view breast inc cad Rishi Melinda Vasquez DO Work Phone: Start: 05-31-2022 Hemoglobin A1c/Hemoglobin.total in Blood Rishi Melinda TateVasquez DO Work Phone: Start: 01-20-2022 Colonoscopy [facility] CUPOLA MECHANIC.MARKETING RECRUITER Work Phone: Start: 06-10-2021 Mammography [facility] CUPOLA MECHANIC.MARKETING RECRUITER Work Phone: Start: 06-11-2017 End: 06-11-2017 ISAC [...] [Mass/volume] in Serum or Plasma Rebekah Castrejon CUSTOM TAILOR APPRENTICE Work Phone: Start: 02-06-2017 End: 02-06-2017 Dietary management education, guidance, and counseling Shaina Serna LPN Start: 02-06-2017 End: 02-07-2017 Thyroid stimulating hormone (TSH) Rebekah Castrejon CUSTOM TAILOR APPRENTICE Work Phone: Start: 02-06-2017 End: 02-08-2017 Thyroperoxidase antibody Rebekah Castrejon CUSTOM TAILOR APPRENTICE Work Phone: Start: 02-06-2017 End: 02-07-2017 Thyroxine (T4) free Rebekah Castrejon CUSTOM TAILOR APPRENTICE Work Phone: Start: 02-06-2017 End: 02-07-2017 Triiodothyronine (T3) free Rebekah Castrejon CUSTOM TAILOR APPRENTICE Work Phone: Start: 01-08-2017 End: 01-15-2017 *BMP [...] RSV Vaccine (1 - 1-dose 75+ series) [facility] Start: 01-20-2027 Colonoscopy COLONOSCOPY [facility] Start: 01-20-2027 COLORECTAL CANCER SCREENING COLORECTAL CANCER SCREENING [facility] Start: 01-20-2027 Screening for malignant neoplasm of colon [facility] Start: 04-30-2026 Annual PCP Team Chronic Disease Visit Annual PCP Team Chronic Disease Visit [facility] Start: 04-30-2026 Covid-19 Vaccine ( season) Covid-19 Vaccine ( season) [facility] Comment on above: Postponed from 07/20/2024 (Declined at t his time) Start: 04-30-2026 Shingrix Vaccine (1 of 2) Shingrix Vaccine (1 of 2) [facility] Comment on above: Postponed from 2002 (Declined at t his time) Start: 04-30-2026 Urine microalbumin profile DTaP,Tdap,Td Vaccine (2 - Td or Tdap) [facility] Comment on above: Postponed from 04/24/2023 (Declined at t his time) Start: 03-27-2026 Annual PCP Team Chronic Disease Visit Annual PCP Team Chronic Disease Visit [facility] Start: 12-05-2025 Annual PCP Team Chronic Disease Visit Annual PCP Team Chronic Disease Visit [facility] Start: 12-05-2025 BP Controlled (<130/80) BP Controlled (<130/80) [facility] Start: 12-01-2025 Complete blood count Hemoglobin/Hematocrit [facility] Start: 12-01-2025 Creatinine measurement Serum Creatinine [facility] Start: 12-01-2025 Hepatitis B surface antibody level LDL Cholesterol [facility] Start: 06-16-2025 End: 06-16-2025 Patient encounter procedure 06/16/2025 12:00 PM EDT Office Visit [facility] [address] [place] [address] Rishi Vasquez, DO [address] [place] [address] LVM 1st attempt Physical [facility] Comment on above: LVM 1st attempt Physical Start: 06-09-2025 End: 06-09-2025 Patient encounter procedure 06/09/2025 9:00 AM EDT Office Visit [facility] [address] [place] [address] Rishi Vasquez, DO [address] [place] [address] Physical [facility] Comment on above: Physical Start: 06-08-2025 End: 06-08-2025 ambulatory 06/08/2025 8:30 AM EDT Results Only [facility] [address] [place] [address] [facility] Start: 06-04-2025 Annual PCP Team Chronic Disease Visit Annual PCP Team Chronic Disease Visit [facility] Start: 06-04-2025 BP Controlled (<130/80) BP Controlled (<130/80) [facility] Start: 06-04-2025 End: 06-04-2025 Patient encounter procedure 06/04/2025 9:30 AM EDT Appointment Mammogram [address] [place] [address] Encounter for screening mammogram for malignant neoplasm of breast [Z12.31] Mammogram Comment on above: Encounter for screening mammogram for ma lignant neoplasm of breast [Z12.31] Start: 06-03-2025 Screening for malignant neoplasm of breast Mammogram Screening [facility] Start: 06-02-2025 Glaucoma screening Dilated Retinal Exam [facility] Start: 05-31-2025 Hemoglobin A1c measurement HbA1C [facility] Start: 05-30-2025 Complete blood count Hemoglobin/Hematocrit [facility] Start: 05-30-2025 Creatinine measurement Serum Creatinine [facility] Start: 05-30-2025 Hepatitis B surface antibody level LDL Cholesterol [facility] Start: 04-15-2025 Patient discharge [facility] Start: 04-02-2025 Diabetic foot examination Diabetic Foot Exam [facility] Start: 03-27-2025 End: 03-27-2025 Patient encounter procedure 03/27/2025 10:00 AM EDT Office Visit [facility] [address] [place] [address] [employer]logarYumiko APRN.MARKETING RECRUITER [address] [place] [address] Discharged 03/20/25 [facility] - Adult failure to thrive, falls, rabdo (no availability within recommended one week F/U with PCP dyad) [facility] Comment on above: Discharged 03/20/25 [facility] - Adult failure to thrive, falls, rabdo (no availability within recommended one week F/U with PCP dyad) Start: 03-20-2025 Patient discharge [facility] Start: 03-19-2025 Developing a treatment plan [facility] Start: 03-19-2025 Development of care plan [facility] Start: 03-19-2025 End: 03-19-2025 [facility] Start: 03-19-2025 End: 03-19-2025 Administration of blood product [facility] Start: 03-18-2025 Referral to service [facility] Start: 03-17-2025 [facility] Start: 03-12-2025 Application of intermittent pneumatic compression device [facility] Start: 03-12-2025 Development of care plan [facility] Start: 03-12-2025 Developing a treatment plan [facility] Start: 03-11-2025 Consultation [facility] Start: 03-11-2025 Referral to conduit reamer operator [facility] Start: 03-11-2025 Referral to vascular surgeon [facility] Start: 03-11-2025 Contact precautions [facility] Start: 03-11-2025 Wound care [facility] Start: 03-11-2025 Admission procedure [facility] Start: 03-11-2025 Introduction of urinary catheter [facility] Start: 03-11-2025 Measuring intake and output [facility] Start: 03-11-2025 Patient referral to dietitian [facility] Start: 03-11-2025 Referral to occupational therapist [facility] Start: 03-11-2025 Referral to service [facility] Start: 03-11-2025 Vital signs measurements [facility] Start: 03-11-2025 [facility] Start: 03-11-2025 End: 03-11-2025 Consultation for treatment [facility] Start: 03-11-2025 Following clinical pathway protocol [facility] Start: 03-11-2025 Patient discharge [facility] Start: 03-10-2025 Consultation [facility] Start: 03-08-2025 [facility] Start: 03-08-2025 Consultation [facility] Start: 03-08-2025 Referral to helicopter officer [facility] Start: 03-08-2025 [facility] Start: 03-08-2025 Referral to vascular surgeon [facility] Start: 03-08-2025 Application of intermittent pneumatic compression device [facility] Start: 03-07-2025 Following clinical pathway protocol [facility] Start: 03-07-2025 Assessment of risk of venous thromboembolism [facility] Start: 03-07-2025 Care regimes management [facility] Start: 03-07-2025 Consultation for treatment [facility] Start: 03-07-2025 Elevation of affected extremity [facility] Start: 03-07-2025 Fall prevention [facility] Start: 03-07-2025 Insertion of catheter into peripheral vein [facility] Start: 03-07-2025 Introduction of urinary catheter [facility] Start: 03-07-2025 Measuring intake and output [facility] Start: 03-07-2025 Notification of physician [facility] Start: 03-07-2025 Patient referral to dietitian [facility] Start: 03-07-2025 Providing care according to standard [facility] Start: 03-07-2025 Provision of activity privileges [facility] Start: 03-07-2025 Referral to occupational therapist [facility] Start: 03-07-2025 Referral to conduit reamer operator [facility] Start: 03-07-2025 Referral to service [facility] Start: 03-07-2025 Wound care [facility] Start: 03-07-2025 End: 03-07-2025 [facility] Start: 03-07-2025 Admission procedure [facility] Start: 03-07-2025 Hospital admission, emergency, from emergency room, medical nature [facility] Start: 03-07-2025 End: 03-07-2025 [facility] Start: 03-07-2025 Bacteria identified in Urine by Culture Urine Culture [facility] Start: 03-07-2025 [facility] Start: 02-26-2025 Anaerobic microbial culture Anaerobic Culture [facility] Start: 02-26-2025 Source specific culture [facility] Start: 02-16-2025 [facility] Start: 02-16-2025 Microbial culture, routine Wound Culture [facility] Start: 02-16-2025 Microscopic observation [Identifier] in Unspecified specimen by Gram stain [facility] Start: 02-16-2025 Wound Culture Wound Culture [facility] Start: 12-05-2024 End: 03-06-2025 25-hydroxyvitamin D3 [Mass/volume] in Serum or Plasma VITAMIN D 25 HYDROXY Lab Routine Vitamin D deficiency Expected: 12/05/2024, Expires: 03/06/2025 [facility] Comment on above: Expected: 12/05/2024, Expires: Start: 12-05-2024 Annual PCP Team Chronic Disease Visit Annual PCP Team Chronic Disease Visit [facility] Start: 12-05-2024 End: 03-06-2025 CBC panel - Blood by Automated count COMPLETE BLOOD COUNT Lab Routine Peripheral vascular occlusive disease (HCC) Expected: 12/05/2024, Expires: 03/06/2025 [facility] Comment on above: Expected: 12/05/2024, Expires: Start: 12-05-2024 End: 03-06-2025 Cobalamin (Vitamin B12) [Mass/volume] in Serum or Plasma VITAMIN B12 Lab Routine 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) Expected: 12/05/2024, Expires: 03/06/2025 [facility] Comment on above: Expected: 12/05/2024, Expires: Start: 12-05-2024 End: 03-06-2025 Comprehensive metabolic 2000 panel - Serum or Plasma COMPREHENSIVE METABOLIC PANEL Lab Routine 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) Expected: 12/05/2024, Expires: 03/06/2025 [facility] Comment on above: Expected: 12/05/2024, Expires: Start: 12-05-2024 End: 03-06-2025 Hemoglobin A1c in Blood HEMOGLOBIN A1C Lab Routine 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) Expected: 12/05/2024, Expires: 03/06/[address] [facility] Work Phone: Comment on above: Expected: 12/05/2024, Expires: Start: 12-05-2024 End: 03-06-2025 Lipid 1996 panel - Serum or Plasma LIPID PANEL BASIC Lab Routine Dyslipidemia (high LDL; low HDL) Expected: 12/05/2024, Expires: 03/06/2025 [facility] Comment on above: Expected: 12/05/2024, Expires: Start: 12-05-2024 End: 03-06-2025 Thyrotropin [Units/volume] in Serum or Plasma THYROID STIMULATING HORMONE Lab Routine Multiple thyroid nodules Expected: 12/05/2024, Expires: 03/06/2025 [facility] Comment on above: Expected: 12/05/2024, Expires: Start: 12-05-2024 End: 03-06-2025 Thyroxine (T4) free [Mass/volume] in Serum or Plasma T4 FREE/FREE THYROXINE Lab Routine Multiple thyroid nodules Expected: 12/05/2024, Expires: 03/06/2025 [facility] Comment on above: Expected: 12/05/2024, Expires: Start: 12-05-2024 End: 12-05-2024 Patient encounter procedure 12/05/2024 9:00 AM EST Office Visit [facility] [address] [facility] [place] [address] Rishi Vasquez DO [address] [facility] [address] 6 month follow up Family [facility] [place] Comment on above: 6 month follow up Start: 11-30-2024 Complete blood count Hemoglobin/Hematocrit [facility] Start: 11-30-2024 Creatinine measurement Serum Creatinine [facility] Start: 11-30-2024 Hemoglobin A1c measurement HbA1C [facility] Start: 11-30-2024 Hepatitis B surface antibody level LDL Cholesterol [facility] Start: 11-19-2024 Medicare Advantage Annual Wellness Visit Medicare Advantage Annual Wellness Visit [facility] Start: 11-15-2024 Glaucoma screening Dilated Retinal Exam [facility] Start: 09-05-2024 End: 09-05-2024 Patient encounter procedure 09/05/2024 9:20 AM EDT Immunization [facility] [address] [place] [address] [facility], Immunization Clinic Nurse [address] [place] [address] FLU SHOT [facility] [place] Comment on above: FLU SHOT Start: 07-20-2024 Covid-19 Vaccine ( season) Covid-19 Vaccine ( season) [facility] Start: 07-20-2024 Covid-19 Vaccine ( season) Covid-19 Vaccine ( season) [facility] Start: 07-20-2024 Influenza vaccination Influenza Vaccine (#1) [facility] Start: 06-04-2024 3 comp foot exam completed DIABETIC FOOT EXAM [facility] Start: 06-04-2024 ANNUAL PCP TEAM CHRONIC DISEASE VISIT ANNUAL PCP TEAM CHRONIC DISEASE VISIT [facility] Start: 06-04-2024 BP CONTROLLED (<130/80) BP CONTROLLED (<130/80) [facility] Start: 06-04-2024 Diabetic foot examination Diabetic Foot Exam [facility] Start: 06-04-2024 End: 06-04-2024 Patient encounter procedure 06/04/2024 9:40 AM EDT Office Visit [facility] [place] [address] [place] [address] Rishi Vasquez, DO [address] [place] [address] 6 month follow up [facility] Comment on above: 6 month follow up Start: 06-03-2024 End: 06-03-2024 Patient encounter procedure 06/03/2024 9:30 AM EDT Appointment Mammogram [address] [place] [address] Encounter for screening mammogram for malignant neoplasm of breast [Z12.31] Mammogram Comment on above: Encounter for screening mammogram for ma lignant neoplasm of breast [Z12.31] Start: 05-30-2024 End: 08-29-2024 25-hydroxyvitamin D3 [Mass/volume] in Serum or Plasma VITAMIN D 25 HYDROXY Lab Routine Vitamin D deficiency Expected: 05/30/2024 (Approximate), Expires: 08/29/2024 [facility] Comment on above: Expected: 05/30/2024 (Approximate), Expi res: 08/29/2024 Start: 05-30-2024 End: 08-29-2024 CBC W Auto Differential panel - Blood COMPLETE BLOOD COUNT AND DIFFERENTIAL Lab Routine Essential hypertension Fatigue, unspecified type Expected: 05/30/2024 (Approximate), Expires: 08/29/2024 [facility] Comment on above: Expected: 05/30/2024 (Approximate), Expi res: 08/29/2024 Start: 05-30-2024 End: 08-29-2024 Comprehensive metabolic 2000 panel - Serum or Plasma COMPREHENSIVE METABOLIC PANEL Lab Routine Essential hypertension 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) CKD stage G3b/A1, GFR 30-44 and albumin creatinine ratio <30 mg/g (HCC) Dyslipidemia (high LDL; low HDL) Expected: 05/30/2024 (Approximate), Expires: 08/29/2024 [facility] Comment on above: Expected: 05/30/2024 (Approximate), Expi res: 08/29/2024 Start: 05-30-2024 End: 08-29-2024 Hemoglobin A1c in Blood HEMOGLOBIN A1C Lab Routine 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) Expected: 05/30/2024 (Approximate), Expires: 08/29/2024 [facility] Comment on above: Expected: 05/30/2024 (Approximate), Expi res: 08/29/2024 Start: 05-30-2024 Hemoglobin A1c measurement HbA1C [facility] Start: 05-30-2024 HEMOGLOBIN/HEMATOCRIT HEMOGLOBIN/HEMATOCRIT [facility] Start: 05-30-2024 Hepatitis B screening URINE ALBUMIN:CREATININE RATIO [facility] Start: 05-30-2024 Hepatitis B surface antibody level LDL CHOLESTEROL [facility] Start: 05-30-2024 End: 08-29-2024 Lipid 1996 panel - Serum or Plasma LIPID PANEL BASIC Lab Routine Essential hypertension 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) Dyslipidemia (high LDL; low HDL) Expected: 05/30/2024 (Approximate), Expires: 08/29/[address] [facility] Work Phone: Comment on above: Expected: 05/30/2024 (Approximate), Expi res: 08/29/2024 Start: 05-30-2024 SERUM CREATININE SERUM CREATININE [facility] Start: 05-30-2024 End: 08-29-2024 Thyrotropin [Units/volume] in Serum or Plasma THYROID STIMULATING HORMONE Lab Routine Multiple thyroid nodules Low TSH level Fatigue, unspecified type Expected: 05/30/2024 (Approximate), Expires: 08/29/2024 [facility] Comment on above: Expected: 05/30/2024 (Approximate), Expi res: 08/29/2024 Start: 05-30-2024 End: 08-29-2024 Thyroxine (T4) free [Mass/volume] in Serum or Plasma T4 FREE/FREE THYROXINE Lab Routine Multiple thyroid nodules Low TSH level Fatigue, unspecified type Expected: 05/30/2024 (Approximate), Expires: 08/29/2024 [facility] Comment on above: Expected: 05/30/2024 (Approximate), Expi res: 08/29/2024 Start: 05-30-2024 End: 08-29-2024 Triiodothyronine (T3) Free [Mass/volume] in Serum or Plasma T3, FREE Lab Routine Multiple thyroid nodules Low TSH level Fatigue, unspecified type Expected: 05/30/2024 (Approximate), Expires: 08/29/2024 [facility] Comment on above: Expected: 05/30/2024 (Approximate), Expi res: 08/29/2024 Start: 05-30-2024 End: 05-30-2024 ambulatory 05/30/2024 8:00 AM EDT Results Only [facility] [address] [place] [address] [facility] Start: 05-29-2024 Mammography [facility] Start: 05-29-2024 Screening for malignant neoplasm of breast Mammogram Screening [facility] Start: 04-16-2024 End: 04-16-2024 ambulatory 04/16/2024 4:45 PM EDT OT/PT/Speech Visit [facility] [address] [place] [address] GoliasAnselmo, PT [address] [place] [address] test [facility] Comment on above: test Start: 03-25-2024 End: 03-25-2024 ambulatory 03/25/2024 9:30 AM EDT OT/PT/Speech Visit [facility] [address] [place] [address] Keisha Guzman, HAIR SAMPLE MATCHER [address] [place] [address] M54.50,G89.29 (ICD-10-CM) - Chronic midline low back pain without sciatica [facility] Comment on above: M54.50,G89.29 (ICD-10-CM) - Chronic midl ine low back pain without sciatica Start: 03-20-2024 End: 03-20-2024 ambulatory 03/20/2024 10:00 AM EDT OT/PT/Speech Visit [facility] [address] [place] [address] Golias, Anselmo, PT [address] [place] [address] M54.50,G89.29 (ICD-10-CM) - Chronic midline low back pain without sciatica [facility] Comment on above: M54.50,G89.29 (ICD-10-CM) - Chronic midl ine low back pain without sciatica Start: 12-14-2023 HEMOGLOBIN/HEMATOCRIT HEMOGLOBIN/HEMATOCRIT [facility] Start: 12-14-2023 SERUM CREATININE SERUM CREATININE [facility] Start: 12-05-2023 ANNUAL PCP TEAM CHRONIC DISEASE VISIT ANNUAL PCP TEAM CHRONIC DISEASE VISIT [facility] Start: 12-05-2023 BP CONTROLLED (<130/80) BP CONTROLLED (<130/80) [facility] Start: 11-30-2023 Hemoglobin A1c/Hemoglobin.total in Blood HBA1C [facility] Start: 08-31-2023 HEMOGLOBIN/HEMATOCRIT HEMOGLOBIN/HEMATOCRIT [facility] Start: 08-31-2023 Hepatitis B surface antibody level LDL CHOLESTEROL [facility] Start: 08-31-2023 SERUM CREATININE SERUM CREATININE [facility] Start: 08-16-2023 Anaerobic Culture Anaerobic Culture [facility] Start: 07-20-2023 Covid-19 Vaccine ( season) Covid-19 Vaccine () [facility] Start: 07-20-2023 Influenza vaccination [facility] Start: 06-13-2023 Hemoglobin A1c/Hemoglobin.total in Blood HBA1C [facility] Start: 06-05-2023 Mammography MAMMOGRAM [facility] Start: 06-04-2023 End: 08-04-2023 Bacteria identified in Urine by Culture [facility] Work Phone: Comment on above: Expected: 06/04/2023, Expires: 3 Start: 05-31-2023 ANNUAL PCP TEAM CHRONIC DISEASE VISIT ANNUAL PCP TEAM CHRONIC DISEASE VISIT [facility] Start: 05-31-2023 BP CONTROLLED (<130/80) BP CONTROLLED (<130/80) [facility] Start: 05-16-2023 3 comp foot exam completed DIABETIC FOOT EXAM [facility] Start: 05-08-2023 Hepatitis C antibody, confirmatory test DILATED RETINAL EXAM [facility] Start: 04-24-2023 Urine microalbumin profile [facility] Start: 03-07-2023 SERUM CREATININE SERUM CREATININE [facility] [place] Start: 03-01-2023 Hemoglobin A1c/Hemoglobin.total in Blood HBA1C [facility] [place] Start: 02-27-2023 End: 04-29-2023 ALBUMIN/CREAT RATIO RND UR ALBUMIN/CREAT RATIO RND UR Lab Routine 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) Expected: 02/27/2023, Expires: 04/29/[address] [facility] Work Phone: Comment on above: Expected: 02/27/2023, Expires: 3 Start: 02-23-2023 HEMOGLOBIN/HEMATOCRIT HEMOGLOBIN/HEMATOCRIT [facility] [place] Start: 02-23-2023 Hepatitis B surface antibody level LDL CHOLESTEROL [facility] [place] Start: 12-05-2022 End: 02-04-2023 CBC W Auto Differential panel - Blood CBC + DIFF Lab Routine Dizziness Biceps rupture, proximal, left, initial encounter Expected: 12/05/2022, Expires: 02/04/[address] [facility] Work Phone: Comment on above: Expected: 12/05/2022, Expires: 3 Start: 12-05-2022 End: 02-04-2023 Comprehensive metabolic 2000 panel - Serum or Plasma COMP METABOLIC PANEL Lab Routine Dizziness Biceps rupture, proximal, left, initial encounter Expected: 12/05/2022, Expires: 02/04/[address] [facility] Work Phone: Comment on above: Expected: 12/05/2022, Expires: 3 Start: 12-05-2022 End: 02-04-2023 Creatine kinase [Enzymatic activity/volume] in Serum or Plasma CK CREATINE KINASE Lab Routine Dizziness Biceps rupture, proximal, left, initial encounter Expected: 12/05/2022, Expires: 02/04/[address] [facility] Work Phone: Comment on above: Expected: 12/05/2022, Expires: 3 Start: 12-05-2022 End: 02-04-2023 Hemoglobin A1c in Blood HGB A1C Lab Routine 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) Expected: 12/05/2022, Expires: 02/04/[address] [facility] Work Phone: Comment on above: Expected: 12/05/2022, Expires: 3 Start: 12-05-2022 End: 02-04-2023 Magnesium [Mass/volume] in Serum or Plasma MAGNESIUM BLD Lab Routine Dizziness Biceps rupture, proximal, left, initial encounter Expected: 12/05/2022, Expires: 02/04/[address] [facility] Work Phone: Comment on above: Expected: 12/05/2022, Expires: 3 Start: 12-05-2022 End: 02-04-2023 Thyrotropin [Units/volume] in Serum or Plasma TSH BLD Lab Routine Dizziness Expected: 12/05/2022, Expires: 02/04/[address] [facility] Work Phone: Comment on above: Expected: 12/05/2022, Expires: 3 Start: 12-05-2022 End: 02-04-2023 Thyroxine (T4) free [Mass/volume] in Serum or Plasma T4 FREE/FREE THYROX Lab Routine Dizziness Expected: 12/05/2022, Expires: 02/04/[address] [facility] Work Phone: Comment on above: Expected: 12/05/2022, Expires: 3 Start: 12-02-2022 ANNUAL PCP TEAM CHRONIC DISEASE VISIT ANNUAL PCP TEAM CHRONIC DISEASE VISIT [facility] [place] Start: 12-01-2022 Hemoglobin A1c/Hemoglobin.total in Blood HBA1C [facility] [place] Start: 11-28-2022 Hepatitis B screening URINE ALBUMIN:CREATININE RATIO [facility] [place] Start: 10-07-2022 End: 12-07-2022 Thyrotropin [Units/volume] in Serum or Plasma TSH BLD Lab Routine Low TSH level Abnormal thyroid blood test Borderline abnormal thyroid function test Expected: 10/07/2022, Expires: 12/07/[address] [facility] Work Phone: Comment on above: Expected: 10/07/2022, Expires: 3 Start: 10-07-2022 End: 12-07-2022 Thyroxine (T4) free [Mass/volume] in Serum or Plasma T4 FREE/FREE THYROX Lab Routine Low TSH level Abnormal thyroid blood test Borderline abnormal thyroid function test Expected: 10/07/2022, Expires: 12/07/[address] [facility] Work Phone: Comment on above: Expected: 10/07/2022, Expires: 3 Start: 10-07-2022 End: 12-07-2022 Triiodothyronine (T3) Free [Mass/volume] in Serum or Plasma T3 FREE BLD Lab Routine Low TSH level Abnormal thyroid blood test Borderline abnormal thyroid function test Expected: 10/07/2022, Expires: 12/07/[address] [facility] Work Phone: Comment on above: Expected: 10/07/2022, Expires: 3 Start: 08-31-2022 End: 10-31-2022 25-hydroxyvitamin D3 [Mass/volume] in Serum or Plasma VITAMIN D 25 HYDROXY Lab Routine Vitamin D deficiency Expected: 08/31/2022, Expires: 10/31/[address] [facility] Work Phone: Comment on above: Expected: 08/31/2022, Expires: 2 Start: 08-31-2022 End: 10-31-2022 CBC panel - Blood by Automated count CBC Lab Routine 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) Stage 3 chronic kidney disease, unspecified whether stage 3a or 3b CKD (HCC) Essential hypertension Dyslipidemia (high LDL; low HDL) Expected: 08/31/2022, Expires: 10/31/[address] [facility] Work Phone: Comment on above: Expected: 08/31/2022, Expires: 2 Start: 08-31-2022 End: 10-31-2022 Cobalamin (Vitamin B12) [Mass/volume] in Serum or Plasma VITAMIN B12 BLOOD Lab Routine 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) Expected: 08/31/2022, Expires: 10/31/[address] [facility] Work Phone: Comment on above: Expected: 08/31/2022, Expires: 2 Start: 08-31-2022 End: 10-31-2022 Comprehensive metabolic 2000 panel - Serum or Plasma COMP METABOLIC PANEL Lab Routine 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) Expected: 08/31/2022, Expires: 10/31/[address] [facility] Work Phone: Comment on above: Expected: 08/31/2022, Expires: 2 Start: 08-31-2022 End: 10-31-2022 Hemoglobin A1c in Blood HGB A1C Lab Routine 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) Expected: 08/31/2022, Expires: 10/31/[address] [facility] Work Phone: Comment on above: Expected: 08/31/2022, Expires: 2 Start: 08-31-2022 End: 10-31-2022 Lipid 1996 panel - Serum or Plasma LIPID PANEL BASIC Lab Routine Dyslipidemia (high LDL; low HDL) Expected: 08/31/2022, Expires: 10/31/[address] [facility] Work Phone: Comment on above: Expected: 08/31/2022, Expires: 2 Start: 08-31-2022 End: 10-31-2022 Thyrotropin [Units/volume] in Serum or Plasma TSH BLD Lab Routine 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) Stage 3 chronic kidney disease, unspecified whether stage 3a or 3b CKD (HCC) Fatigue, unspecified type Expected: 08/31/2022, Expires: 10/31/[address] [facility] Work Phone: Comment on above: Expected: 08/31/2022, Expires: 2 Start: 08-25-2022 Hemoglobin A1c/Hemoglobin.total in Blood HBA1C [facility] [place] Start: 07-20-2022 Influenza vaccination INFLUENZA (#1) [facility] [place] Start: 07-14-2022 BP CONTROLLED (<130/80) BP CONTROLLED (<130/80) [facility] [place] Start: 06-10-2022 Mammography MAMMOGRAM [facility] [place] Start: 05-30-2022 3 comp foot exam completed DIABETIC FOOT EXAM [facility] [place] Start: 04-26-2022 COVID-19 VACCINE (3 - Booster for Kellee series) COVID-19 VACCINE (3 - Booster for Kellee series) [facility] [place] Start: 03-30-2022 Hepatitis C antibody, confirmatory test DILATED RETINAL EXAM [facility] [place] Start: 02-21-2022 COVID-19 VACCINE (3 - Booster for Kellee series) COVID-19 VACCINE (3 - Booster for Kellee series) [facility] [place] Start: 01-20-2022 Colonoscopy flx dx w/collj spec when pfrmd DIAGNOSTIC COLONOSCOPY [facility] Work Phone: Start: 11-19-2021 ADVANCE DIRECTIVE DISCUSSION ADVANCE DIRECTIVE DISCUSSION [facility] [place] Start: 12-17-2017 End: 12-17-2017 Appointment Appointment [facility] Work Phone: Start: 08-30-2017 End: 08-30-2017 Appointment Appointment [facility] Work Phone: Start: 06-11-2017 End: 06-11-2017 ISAC CHAU [facility] Work Phone: Start: 06-11-2017 End: 06-11-2017 Follow Up Appt 6 months Follow Up Appt 6 months [facility] [place] Work Phone: Start: 06-11-2017 End: 06-11-2017 Appointment Appointment [facility] Work Phone: Start: 06-11-2017 End: 06-11-2017 ISAC CHAU [facility] Work Phone: Start: 06-11-2017 End: 06-11-2017 Follow Up Appt 6 months Follow Up Appt 6 months [facility] Work Phone: Start: 06-04-2017 End: 06-04-2017 Appointment Appointment [facility] Work Phone: Start: 05-04-2017 End: 05-04-2017 Thyroid stimulating hormone (TSH) *TSH [facility] [place] Work Phone: Start: 05-04-2017 End: 05-04-2017 Thyroxine (T4) free *T4 free [facility] Work Phone: Start: 05-04-2017 End: 05-04-2017 Triiodothyronine (T3) free *T3-Free [facility] Work Phone: Start: 05-04-2017 End: 05-04-2017 Thyroid stimulating hormone (TSH) *TSH [facility] Work Phone: Start: 05-04-2017 End: 05-04-2017 Thyroxine (T4) free *T4 free [facility] Work Phone: Start: 05-04-2017 End: 05-04-2017 Triiodothyronine (T3) free *T3-Free [facility] Work Phone: Start: 05-02-2017 End: 05-02-2017 *BMP *BMP [facility] Work Phone: Start: 05-02-2017 End: 05-02-2017 *CBC with Differential *CBC with Differential [facility] Work Phone: Start: 05-02-2017 End: 05-02-2017 Appointment Appointment [facility] Work Phone: Start: 05-02-2017 End: 05-02-2017 *BMP *BMP [facility] Work Phone: Start: 05-02-2017 End: 05-02-2017 *CBC with Differential *CBC with Differential [facility] Work Phone: Start: 04-23-2017 End: 04-23-2017 C reactive protein (hsCRP) *CRP - C-Reative Protein [facility] Work Phone: Start: 04-23-2017 End: 04-23-2017 Erythrocyte sedimentation rate *Sedimentation Rate (ESR) [facility] Work Phone: Start: 04-23-2017 End: 04-23-2017 C reactive protein (hsCRP) *CRP - C-Reative Protein [facility] Work Phone: Start: 04-23-2017 End: 04-23-2017 Erythrocyte sedimentation rate *Sedimentation Rate (ESR) [facility] Work Phone: Start: 02-19-2017 End: 02-21-2017 C reactive protein (hsCRP) *CRP - C-Reative Protein [facility] Work Phone: Start: 02-19-2017 End: 02-21-2017 Erythrocyte sedimentation rate *Sedimentation Rate (ESR) [facility] Work Phone: Start: 02-19-2017 End: 02-21-2017 C reactive protein (hsCRP) *CRP - C-Reative Protein [facility] Work Phone: Start: 02-19-2017 End: 02-21-2017 Erythrocyte sedimentation rate *Sedimentation Rate (ESR) [facility] Work Phone: Start: 02-06-2017 End: 02-07-2017 Thyroid stimulating hormone (TSH) *TSH [facility] Work Phone: Start: 02-06-2017 End: 02-08-2017 Thyroperoxidase antibody *TPO Thyroid Peroxidase Antibodies [facility] Work Phone: Start: 02-06-2017 End: 02-07-2017 Thyroxine (T4) free *T4 free [facility] Work Phone: Start: 02-06-2017 End: 02-07-2017 Triiodothyronine (T3) free *T3-Free [facility] [place] Work Phone: Start: 02-06-2017 End: 02-07-2017 Thyroid stimulating hormone (TSH) *TSH [facility] Work Phone: Start: 02-06-2017 End: 02-08-2017 Thyroperoxidase antibody *TPO Thyroid Peroxidase Antibodies [facility] Work Phone: Start: 02-06-2017 End: 02-07-2017 Thyroxine (T4) free *T4 free [facility] Work Phone: Start: 02-06-2017 End: 02-07-2017 Triiodothyronine (T3) free *T3-Free [facility] Work Phone: Start: 01-24-2017 End: 01-24-2017 Bacterica wound culture *Culture and Sensitivity, wound [facility] Work Phone: Start: 01-24-2017 End: 01-24-2017 Bacterica wound culture *Culture and Sensitivity, wound [facility] Work Phone: Start: 01-08-2017 End: 01-15-2017 *BMP *BMP [facility] Work Phone: Start: 01-08-2017 End: 01-15-2017 *CBC with Differential *CBC with Differential [facility] Work Phone: Start: 01-08-2017 End: 01-15-2017 C reactive protein (hsCRP) *CRP - C-Reative Protein [facility] Work Phone: Start: 01-08-2017 End: 01-15-2017 Erythrocyte sedimentation rate *Sedimentation Rate (ESR) [facility] Work Phone: Start: 01-08-2017 End: 01-15-2017 Mri lower extrem oth/thn jt w/o contr matrl MRI Non Joint Lower Extremity w/o [facility] Work Phone: Start: 01-08-2017 End: 01-15-2017 *BMP *BMP [facility] Work Phone: Start: 01-08-2017 End: 01-15-2017 *CBC with Differential *CBC with Differential [facility] Work Phone: Start: 01-08-2017 End: 01-15-2017 C reactive protein (hsCRP) *CRP - C-Reative Protein [facility] Work Phone: Start: 01-08-2017 End: 01-15-2017 Erythrocyte sedimentation rate *Sedimentation Rate (ESR) [facility] Work Phone: Start: 01-08-2017 End: 01-15-2017 Mri lower extremity w/o dye MRI Non Joint Lower Extremity w/o [facility] Work Phone: Start: 01-04-2017 End: 01-04-2017 *CBC with Differential *CBC with Differential [facility] Work Phone: Start: 01-04-2017 End: 01-04-2017 Bacterica wound culture *Culture and Sensitivity, wound [facility] Work Phone: Start: 01-04-2017 End: 01-04-2017 C reactive protein (hsCRP) *CRP - C-Reative Protein [facility] [place] Work Phone: Start: 01-04-2017 End: 01-04-2017 Erythrocyte sedimentation rate *Sedimentation Rate (ESR) [facility] [place] Work Phone: Start: 01-04-2017 End: 01-04-2017 MRSA presence *MRSAD - M R Staph Aureus DNA by PCR [facility] [place] Work Phone: Start: 01-04-2017 End: 01-04-2017 Radex foot complete minimum 3 views X-Ray, Foot [facility] [place] Work Phone: Start: 01-04-2017 End: 01-04-2017 *CBC with Differential *CBC with Differential [facility] Work Phone: Start: 01-04-2017 End: 01-04-2017 Bacterica wound culture *Culture and Sensitivity, wound [facility] Work Phone: Start: 01-04-2017 End: 01-04-2017 C reactive protein (hsCRP) *CRP - C-Reative Protein [facility] Work Phone: Start: 01-04-2017 End: 01-04-2017 Erythrocyte sedimentation rate *Sedimentation Rate (ESR) [facility] Work Phone: Start: 01-04-2017 End: 01-04-2017 MRSA presence *MRSAD - M R Staph Aureus DNA by PCR [facility] Work Phone: Start: 01-04-2017 End: 01-04-2017 X-ray exam of foot X-Ray, Foot [facility] Work Phone: Start: 01-01-2017 End: 01-02-2017 *CBC with Differential *CBC with Differential [facility] Work Phone: Start: 01-01-2017 End: 01-02-2017 C reactive protein (hsCRP) *CRP - C-Reative Protein [facility] [place] Work Phone: Start: 01-01-2017 End: 01-02-2017 Erythrocyte sedimentation rate *Sedimentation Rate (ESR) [facility] [place] Work Phone: Start: 01-01-2017 End: 01-02-2017 *CBC with Differential *CBC with Differential [facility] Work Phone: Start: 01-01-2017 End: 01-02-2017 C reactive protein (hsCRP) *CRP - C-Reative Protein [facility] Work Phone: Start: 01-01-2017 End: 01-02-2017 Erythrocyte sedimentation rate *Sedimentation Rate (ESR) [facility] Work Phone: Start: 12-20-2016 End: 12-20-2016 Radex foot complete minimum 3 views X-Ray, Foot [facility] [place] Work Phone: Start: 12-20-2016 End: 12-20-2016 X-ray exam of foot X-Ray, Foot [facility] Work Phone: Start: 12-18-2016 End: 12-20-2016 *CDIF - Clostridium Diff. Toxin Stool *CDIF - Clostridium Diff. Toxin Stool [facility] [place] Work Phone: Start: 12-18-2016 End: 12-20-2016 *CDIF - Clostridium Diff. Toxin Stool *CDIF - Clostridium Diff. Toxin Stool [facility] Work Phone: Start: 12-13-2016 End: 12-15-2016 Radex foot complete minimum 3 views X-Ray, Foot [facility] [place] Work Phone: Start: 12-13-2016 End: 12-15-2016 X-ray exam of foot X-Ray, Foot [facility] Work Phone: Start: 12-05-2016 End: 12-05-2016 DJN DJN [facility] [place] Work Phone: Start: 12-05-2016 End: 12-05-2016 Follow Up Appt 6 months Follow Up Appt 6 months [facility] [place] Work Phone: Start: 12-05-2016 End: 12-05-2016 DJN DJN [facility] Work Phone: Start: 12-05-2016 End: 12-05-2016 Follow Up Appt 6 months Follow Up Appt 6 months [facility] Work Phone: Start: 11-22-2016 End: 11-23-2016 *IGSUB IMMUN Subclas-IGG1,2,3 &4 *IGSUB IMMUN Subclas-IGG1,2,3 &4 [facility] Work Phone: Start: 11-22-2016 End: 11-29-2016 Debridement subcutaneous tissue 20 sq cm/< Debridement, subcutaneous tissue first 20 sq cm or less [facility] Work Phone: Start: 11-22-2016 End: 11-23-2016 *IGSUB IMMUN Subclas-IGG1,2,3 &4 *IGSUB IMMUN Subclas-IGG1,2,3 &4 [facility] Work Phone: Start: 11-22-2016 End: 11-29-2016 Dalila subq tissue 20 sq cm/< Debridement, subcutaneous tissue first 20 sq cm or less [facility] Work Phone: Start: 09-22-2016 End: 09-29-2016 Debridement subcutaneous tissue 20 sq cm/< Debridement, subcutaneous tissue first 20 sq cm or less [facility] Work Phone: Start: 09-22-2016 End: 09-29-2016 Dalila subq tissue 20 sq cm/< Debridement, subcutaneous tissue first 20 sq cm or less [facility] Work Phone: Start: 11-30-2015 End: 11-30-2015 DJN DJN [facility] Work Phone: Start: 11-30-2015 End: 11-30-2015 Follow Up Appt 1 year Follow Up Appt 1 year [facility] Work Phone: Start: 11-30-2015 End: 11-30-2015 DJN DJN [facility] Work Phone: Start: 11-30-2015 End: 11-30-2015 Follow Up Appt 1 year Follow Up Appt 1 year [facility] Work Phone: Start: 05-25-2015 End: 05-25-2015 ISAC CHAU [facility] Work Phone: Start: 05-25-2015 End: 05-25-2015 Ecg routine ecg w/least 12 lds w/i&r EKG (In office) [facility] Work Phone: Start: 05-25-2015 End: 05-25-2015 Follow Up Appt 6 months Follow Up Appt 6 months [facility] Work Phone: Start: 05-25-2015 End: 05-25-2015 ISAC CHAU [facility] Work Phone: Start: 05-25-2015 End: 05-25-2015 Electrocardiogram, complete EKG (In office) [facility] Work Phone: Start: 05-25-2015 End: 05-25-2015 Follow Up Appt 6 months Follow Up Appt 6 months [facility] Work Phone: Start: 01-04-2015 End: 01-04-2015 Vascular Surgery Vascular Surgery Kw[facility] Moscoso, [address], [address], [address] [facility] Work Phone: Start: 01-04-2015 End: 01-04-2015 Vascular Surgery Vascular Surgery [facility] Moscoso, [facility], [address] [place], [address] [facility] Work Phone: Start: 12-29-2014 End: 05-19-2015 *BMP *BMP [facility] Work Phone: Start: 12-29-2014 End: 12-29-2014 Ct angiography neck w/contrast/noncontrast CTA Neck [facility] Work Phone: Start: 12-29-2014 End: 12-29-2014 ISAC CHAU [facility] Work Phone: Start: 12-29-2014 End: 12-29-2014 Follow Up Appt 6 months Follow Up Appt 6 months [facility] Work Phone: Start: 12-29-2014 End: 05-19-2015 *BMP *BMP [facility] Work Phone: Start: 12-29-2014 End: 12-29-2014 Ct angiography, neck CTA Neck [facility] Work Phone: Start: 12-29-2014 End: 12-29-2014 ISCA CHAU [facility] Work Phone: Start: 12-29-2014 End: 12-29-2014 Follow Up Appt 6 months Follow Up Appt 6 months [facility] Work Phone: Start: 06-12-2014 End: 06-12-2014 24 hour holter monitor 24 hour holter monitor [facility] Work Phone: Start: 06-12-2014 End: 06-15-2014 Carotid duplex Carotid duplex [facility] Work Phone: Start: 06-12-2014 End: 06-12-2014 Follow Up Appt Other Follow Up Appt Other [facility] Work Phone: Start: 06-12-2014 End: 06-12-2014 24 hour holter monitor 24 hour holter monitor [facility] Work Phone: Start: 06-12-2014 End: 06-15-2014 Carotid duplex Carotid duplex [facility] Work Phone: Start: 06-12-2014 End: 06-12-2014 Follow Up Appt Other Follow Up Appt Other [facility] Work Phone: Start: 02-02-2014 End: 02-02-2014 Cardiac Rehab Cardiac Rehab [facility] Work Phone: Start: 02-02-2014 End: 02-02-2014 ISAC CHAU [facility] Work Phone: Start: 02-02-2014 End: 02-02-2014 Follow Up Appt 1 year Follow Up Appt 1 year [facility] Work Phone: Start: 02-02-2014 End: 02-02-2014 Cardiac Rehab Cardiac Rehab [facility] Work Phone: Start: 02-02-2014 End: 02-02-2014 ISAC CHAU [facility] Work Phone: Start: 02-02-2014 End: 02-02-2014 Follow Up Appt 1 year Follow Up Appt 1 year [facility] Work Phone: Start: 01-12-2014 End: 01-12-2014 *BMP *BMP [facility] Work Phone: Start: 01-12-2014 End: 01-12-2014 CBC W Auto Differential panel - Blood *CBC without Diff [facility] [place] Work Phone: Start: 01-12-2014 End: 01-23-2014 Chest x-ray X-Ray, Chest, PA & Lateral [facility] [place] Work Phone: Start: 01-12-2014 End: 01-12-2014 ISAC CHAU [facility] [place] Work Phone: Start: 01-12-2014 End: 01-12-2014 Follow Up Appt 1 year Follow Up Appt 1 year [facility] [place] Work Phone: Start: 01-12-2014 End: 01-12-2014 INR Coag RelTime (PPP) *PT/INR [facility] [place] Work Phone: Start: 01-12-2014 End: 01-12-2014 Left Heart Cath Left Heart Cath [facility] Work Phone: Start: 01-12-2014 End: 01-12-2014 *BMP *BMP [facility] Work Phone: Start: 01-12-2014 End: 01-12-2014 CBC W Auto Differential panel - Blood *CBC without Diff [facility] Work Phone: Start: 01-12-2014 End: 01-23-2014 Chest x-ray X-Ray, Chest, PA & Lateral [facility] Work Phone: Start: 01-12-2014 End: 01-12-2014 Coagulation factor induced.INR assay in platelet poor plasma *PT/INR [facility] Work Phone: Start: 01-12-2014 End: 01-12-2014 DJN DJN [facility] Work Phone: Start: 01-12-2014 End: 01-12-2014 Follow Up Appt 1 year Follow Up Appt 1 year [facility] Work Phone: Start: 01-12-2014 End: 01-12-2014 Left Heart Cath Left Heart Cath [facility] Work Phone: Start: 2012 Hepatitis B Vaccine (1 of 3 - Risk 3-dose series) Hepatitis B Vaccine (1 of 3 - Risk 3-dose series) [facility] Start: 2012 RSV Vaccine (1 - 1-dose 60+ series) RSV Vaccine (1 - 1-dose 60+ series) [facility] Start: 2002 Influenza vaccination LUNG CANCER SCREENING [facility] Start: 2002 Screening for malignant neoplasm of lung Lung Cancer Screening [facility] Start: 2002 SHINGRIX VACCINE (1 of 2) SHINGRIX VACCINE (1 of 2) [facility] Start: 1997 COLOGUARD (FIT-DNA) COLOGUARD (FIT-DNA) [facility] Start: [address] COLONOGRAPHY [facility] Start: 1997 FECAL OCCULT BLOOD FECAL OCCULT BLOOD [facility] Start: 1997 Screening for malignant neoplasm of colon [facility] Start: 1997 SIGMOIDOSCOPY SIGMOIDOSCOPY [facility] Start: 1970 Anxiety Screening Anxiety Screening [facility] Bacteria identified in Unspecified specimen by Anaerobe culture [facility] Bacteria identified in Urine by Culture URINE CULTURE Microbiology Routine Acute cystitis with hematuria Ordered: 09/23/[address] [facility] Work Phone: Comment on above: Ordered: 09/23/2022 DBT Breast - bilater al screening ALEJANDRO SCREENING W BEN Radiology Routine Encounter for screening mammogram for malignant neoplasm of breast 06/03/2024 9:42 AM EDT [facility] Work Phone: End: 01-04-2026 DBT Breast - bilateral screening ALEJANDRO SCREENING W BEN Radiology Routine Encounter for screening mammogram for malignant neoplasm of breast 1 Occurrences starting 12/05/2024 until 01/04/[address] [facility] Work Phone: Comment on above: 1 Occurrences starting 12/05/2024 until 01/04/2026 End: 07-05-2023 Diagnostic mammography computer-aided detcj uni ALEJANDRO DIAGNOSTIC RT Radiology Routine Abnormal mammogram 1 Occurrences starting 06/05/2022 until 07/05/[address] [facility] Work Phone: Comment on above: 1 Occurrences starting 06/05/2022 until 07/05/2023 End: 06-27-2024 ALEJANDRO DIAGNOSTIC RIGHT ALEJANDRO DIAGNOSTIC RIGHT Radiology Routine Abnormal mammogram 1 Occurrences starting 05/29/2023 until 06/27/[address] [facility] Work Phone: Comment on above: 1 Occurrences starting 05/29/2023 until 06/27/2024 End: 03-06-2024 ALEJANDRO SCREENING ALEJANDRO SCREENING Radiology Routine Encounter for screening mammogram for malignant neoplasm of breast 1 Occurrences starting 02/07/2023 until 03/06/[address] [facility] Work Phone: Comment on above: 1 Occurrences starting 02/07/2023 until 03/06/2024 NM Heart Views W str ess and W radionuclide IV [facility] Patient Education [facility] Work Phone: Patient referral [facility] Work Phone: Urine culture [facility] End: 06-27-2024 US BREAST LTD RIGHT US BREAST LTD RIGHT Radiology Routine Abnormal mammogram 1 Occurrences starting 05/29/2023 until 06/27/[address] [facility] Work Phone: Comment on above: 1 Occurrences starting 05/29/2023 until 06/27/2024 End: 08-17-2023 Us breast uni real time with image limited US BREAST LTD RT Radiology Routine Abnormal mammogram 1 Occurrences starting 06/05/2022 until 07/05/[address] [facility] Work Phone: Comment on above: 1 Occurrences starting 06/05/2022 until 07/05/2023 US Carotid arteries [facility] Work Phone: US Carotid arteries [facility] Carotid arteries [facility] US Carotid arteries [facility] End: 12-05-2023 US CAROTID ARTERIES [facility] US CAROTID ARTERIES [facility] Vascular Lab Routine Carotid atherosclerosis, bilateral 1 Occurrences starting 12/05/2022 until 12/05/[address] [facility] Work Phone: Comment on above: 1 Occurrences starting 12/05/2022 until 12/05/2023 US Heart [facility] Us soft tissue head & neck real time imge docm US THYROID/PARATHYROID Radiology Routine Multiple thyroid nodules 12/20/2023 9:38 AM EST [facility] Work Phone: Wound microscopy, cu lture and sensitivities [facility] Immunizations Immunization Date Immunization Notes Care Provider Lisa marie 09-05-2024 influenza, high dose seasonal, preservative-free Immunization [facility] Work Phone: [facility] 08-31-2023 influenza (HD-IIV4) vaccine, age 65+ yr, high dose, quadrivalent, PF (FLUZONE HIGH-DOSE) Immunization [facility] Work Phone: [facility] Work Phone: 08-31-2023 influenza virus vaccine, unspecified formulation Rishi Vasquez DO Work Phone: [facility] 06-04-2023 pneumococcal (PCV20) vaccine, 20 valent (PREVNAR 20) Rishi Vasquez DO Work Phone: [facility] Work Phone: 06-04-2023 pneumococcal Conjuga te, unspecified formulation Rishi Vasquez DO Work Phone: [facility] Work Phone: 09-09-2022 influenza, high-dose , quadrivalent vaccine (FLUZONE HIGH DOSE QUADRIVALENT) Immunization [facility] Work Phone: [facility] 09-09-2022 influenza virus vaccine, unspecified formulation Rishi Vasquez DO Work Phone: [facility] 09-10-2021 influenza, high-dose , quadrivalent vaccine (FLUZONE HIGH DOSE QUADRIVALENT) Dillon Violeta CUPOLA MECHANIC.MARKETING RECRUITER Work Phone: [facility] Work Phone: 09-10-2020 influenza, high-dose , quadrivalent vaccine (FLUZONE HIGH DOSE QUADRIVALENT) Dillon Violeta CUPOLA MECHANIC.MARKETING RECRUITER Work Phone: [facility] Work Phone: 09-02-2019 influenza, high dose seasonal, preservative-free Dillon Violeta CUPOLA MECHANIC.MARKETING RECRUITER Work Phone: [facility] Work Phone: 08-28-2018 influenza, high dose seasonal, preservative-free Dillon Violeta CUPOLA MECHANIC.MARKETING RECRUITER Work Phone: [facility] Work Phone: 08-28-2018 pneumococcal polysaccharide vaccine, 23 valent Dillon Violeta CUPOLA MECHANIC.MARKETING RECRUITER Work Phone: [facility] Work Phone: 09-07-2017 influenza, high dose seasonal, preservative-free Dillon Violeta CUPOLA MECHANIC.MARKETING RECRUITER Work Phone: [facility] Work Phone: 09-01-2016 influenza, injectabl e, quadrivalent, preservative free Dr. Rishi Vasquez Work Phone: [facility] 09-01-2016 influenza, seasonal, injectable Dr. Rishi Vasquez Work Phone: [facility] 09-11-2014 influenza, seasonal, injectable Dillon Violeta CUPOLA MECHANIC.MARKETING RECRUITER Work Phone: [facility] Work Phone: 04-24-2013 tetanus toxoid, redu woody diphtheria toxoid, and acellular pertussis vaccine, adsorbed Dillon Violeta CUPOLA MECHANIC.MARKETING RECRUITER Work Phone: [facility] Work Phone: 01-03-2013 pneumococcal conjuga te vaccine, 13 valent Dillon Violeta CUPOLA MECHANIC.[facility] Work Phone: [facility] Work Phone: 12-20-2012 pneumococcal polysaccharide vaccine, 23 valent Dillon Violeta CUPOLA MECHANIC.[facility] Work Phone: [facility] Work Phone: Payers Date Payer Category Payer Self-pay [id number] 2022 [place] [id number] 2022 Medicare [id number] 2020 Unknown MMO MMO MEDICARE SUPPLEMENT [id number] 2020-Present [phone] [address] [place] [address] Indemnity [id number] 2020 Unknown [id number] [id number]. [id number] 2017 Medicare MEDICARE MEDICAR E A AND B [id number] 2017-Present [phone] [address] [address] [place] [address] Medicare [id number] 2017 Medicare [id number] [id number]. [id number] 2017 Private Health Insurance [facility] [id number] Medicare [id number] Unknown [id number] Unknown [id number] 2.840.1.051752.3.579.2. 462 Unknown [id number] 20.1.165525.3.579.2. 462 Unknown [id number] .840.1.408932.3.579.2. 462 Unknown [id number] .840.1.807921.3.579.2. 462 Unknown [id number] 2.840.1.396531.3.579.2. 462 Unknown [id number] 2.840.1.072246.3.579.2. 462 Unknown [id number] 2.840.1.131130.3.579.2. 462 Unknown [id number] 2.16.840.1.834586.3.579.2. 462 Unknown [id number] 2.16.840.1.106202.3.579.2. 462 Unknown [id number] 2.16.840.1.467989.3.579.2. 462 Unknown [id number] 2.16.840.1.082462.3.579.2. 462 Unknown [id number] 2.16840.1.126663.3.579.2. 462 Unknown [id number] 2.16840.1.913070.3.579.2. 462 Unknown [id number] 2.16840.1.416666.3.579.2. 462 Unknown [id number] 2.16840.1.175381.3.579.2. 462 Unknown [id number] 2.16840.1.158924.3.579.2. 462 Unknown [id number] 2.840.1.092626.3.579.2. 462 Unknown [id number] 2.16840.1.832537.3.579.2. 462 Unknown [id number] 2.16840.1.580183.3.579.2. 462 Unknown [id number] 2.16840.1.471442.3.579.2. 462 Unknown [id number] 2.16840.1.938803.3.579.2. 462 Unknown [id number] 2.16840.1.835856.3.579.2. 462 Unknown [id number] 2.16840.1.306318.3.579.2. 462 Unknown [id number] 2.16.840.1.285196.3.579.2. 462 Unknown [id number] 2.16.840.1.598655.3.579.2. 462 Unknown [id number] 2.16840.1.373997.3.579.2. 462 Unknown [id number] 2.16.840.1.689011.3.579.2. 462 Unknown [id number] 2.16.840.1.667660.3.579.2. 462 Unknown [id number] 2.16.840.1.948612.3.579.2. 462 Unknown [id number] 2.16.840.1.383026.3.579.2. 462 Unknown [id number] 2.16.840.1.792244.3.579.2. 462 Unknown [id number] 2.16.840.1.964492.3.579.2. 462 Unknown [id number] 2.16.840.1.327091.3.579.2. 462 Unknown [id number] 2.16.840.1.232410.3.579.2. 462 Unknown [id number] 2.840.1.368961.3.579.2. 462 Unknown [id number] 2.16.840.1.894896.3.579.2. 462 Unknown [id number] 2.16.840.1.829348.3.579.2. 462 Unknown [id number] 2.16.840.1.534118.3.579.2. 462 Unknown [id number] 2.16.840.1.576102.3.579.2. 462 Unknown [id number] 2.16.840.1.189338.3.579.2. 462 Unknown [id number] 2.16.840.1.347818.3.579.2. 462 Unknown [id number] 2.16.840.1.789617.3.579.2. 462 Unknown [id number] 2.16.840.1.919762.3.579.2. 462 Unknown [id number] 2.16.840.1.225773.3.579.2. 462 Unknown [id number] 2.16.840.1.696187.3.579.2. 462 Social History Date Type Detail Facility [facility] Work Phone: Start: 02-07-2022 End: 02-12-2024 Tobacco smoking status NMIS Unknown if ever smoked [facility] Start: 03-19-2021 None [facility] Start: 03-19-2021 Alone [facility] Start: 03-19-2021 Cigarettes [facility] Start: 1950 Sex Assigned At Female [facility] Start: 01-13-2013 End: 05-08-2025 Tobacco smoking status NHIS Ex-smoker [facility] Start: 12-20-1967 End: 12-20-2012 History of tobacco use Current smoker [facility] Start: 12-20-1967 End: 12-20-2012 History of tobacco use Cigarette Smoker [facility] Start: 01-13-2013 End: 09-05-2024 Cigarettes smoked current (pack per day) - Reported 0.5 [facility] Start: 01-13-2013 End: 03-27-2025 Tobacco use and exposure Smokeless tobacco non-user [facility] Start: 12-02-2021 End: 03-27-2025 Alcohol intake Current non-drinker of alcohol (finding) [facility] Start: 12-01-2021 End: 12-02-2022 History SDOH Alcohol Frequency 1 [facility] Start: 12-01-2021 History SDOH Alcohol Std Drinks 98 [facility] Start: 12-01-2021 End: 12-02-2022 History SDOH Social Connections Phone 5 [facility] Start: 12-01-2021 End: 12-02-2022 History SDOH Social Connections Yazidism 2 [facility] Start: 12-01-2021 End: 12-02-2022 History SDOH Social Connections Living 4 [facility] Start: 12-01-2021 End: 12-02-2022 History SDOH Physical Activity MPS 6 [facility] Start: 11-26-2019 Education 12 [facility] Start: 02-25-2022 End: 08-15-2022 Exposure to SARS-CoV-2 (event) Not sure [facility] Work Phone: Start: 12-02-2022 History SDOH Alcohol Std Drinks 0 [facility] Start: 12-01-2022 End: 09-05-2024 Social connection and isolation panel [facility] Do you belong to any clubs or organizations such as roman catholic groups, unions, fraternal or athletic groups, or school groups? No [facility] Are you now , , , , never or living with a partner? [facility] How often to you hav e a drink containing alcohol? Never [facility] How many standard dr inks containing alcohol do you have on a typical day? Patient does not drink [facility] Do you feel stress - tense, restless, nervous, or anxious, or unable to sleep at night because your mind is troubled all the time - these days [OSQ] Only a little [facility] (I/We) worried niurka er (my/our) food would run out before (I/we) got money to buy more. Never true [facility] Start: 08-26-2019 Gender identity Identifies as female gender (finding) [facility] Start: 08-16-2024 Sexual orientation Heterosexual (finding) [facility] Do you feel stress - tense, restless, nervous, or anxious, or unable to sleep at night because your mind is troubled all the time - these days [OSQ] Not at all [facility] Start: 02-17-2025 End: 03-07-2025 Sex Female (finding) [facility] Medical Equipment Procedure Code Equipment Code Equipment Original Text Equipment Identifier Dates [id number], [id number] Start: 02-15-2022 End: 06-04-2024 Comment on above: Test blood sugar(s) one times daily. Dx: Other DM Code E11.51 Insulin: No Use as instructed Goals Date Patient Goal Desired Activity /State Functional Status Date Assessment Result Facility 03-20-2025 Functional status Up ad praveen;[facility] Work Phone: 03-19-[address] [facility] Work Phone: 03-11-2025 Functional [...] 3:01 PM EDT Meka Baca RN No [facility] 06-09-2015 Are you blind, or do you have serious difficulty seeing, even when wearing glasses No 06/09/2015 3:01 PM EDT Meka Baca RN No [facility] 06-09-2015 Do you have serious difficulty walking or climbing stairs No 06/09/2015 3:01 PM EDT Meka Baca RN No [facility] 06-09-2015 Do you have difficul ty dressing or bathing No 06/09/2015 3:01 PM EDT Meka Baca RN No [facility] 06-09-2015 Because of a physica l, mental, or emotional condition, do you have difficulty doing errands alone such as visiting a physician's office or shopping No 06/09/2015 3:01 PM EDT Meka Baca RN No [facility] Mental Status Date Assessment Result Facility 03-20-2025 [facility] Work Phone: 03-11-2025 Cognitive function Voice/Name [facility] Work Phone: 01-20-2022 Cognitive function Voice/Name [facility] Work Phone: 06-09-2015 Because of a physica l, mental, or emotional condition, do you have serious difficulty concentrating, remembering, or making decisions No 06/09/2015 3:01 PM EDT Meka Baca RN No [facility] Clinical Notes 11-14-2017 to 05-07-2025 Telephone Encounter [...] since her insurance does not cover it. [facility] 05-07-2025 Miscellaneous Notes Pt phoned back and [...] this plan. Prior Authorization not available. Payer: [employer] [phone] Note from payer: This drug/product is not covered under the pharmacy benefit. Prior Authorization is not available. Electronic PA requested. Pt called in and reports she went in to [facility] and they told her that her [...] Insurance Company Name: [employer] Phone number:[phone] Patient ID number: [id number] Pharmacy Name: [facility] Telephone number: [phone] documented in this encounter [facility] 05-07-2025 Telephone encounter Note Called and left a detailed voicemail notifying patient of providers message. Clinic phone number was left for the patient to call back if she would like the provider to change her medication. Sara Solis RN [facility] 05-06-2025 Telephone encounter Note Agree with below Rishi Vasquez DO [facility] 05-06-2025 Telephone encounter Note Called pt and message left she can either ask the pharmacy to run the rx with a discount card or call back and ask the provider to change the medicine. [facility] 05-06-2025 Telephone encounter Note Images from the original note were not included. This is the PA response. Close reason: Product not covered by this plan. Prior Authorization not available. Payer: [employer] [phone] Note from payer: This drug/product is not covered under the pharmacy benefit. Prior Authorization is not available. [facility] 05-06-2025 Telephone encounter Note Electronic PA requested. [facility] 05-06-2025 Telephone encounter Note Pt called in and reports she went in to [facility] and they told her that her insurance doesn't cover the Glipizide 5 mg tablets without a PA. Pt states she got them before and her insurance covered them. Pt states she paid out of pocket for 5 days worth of pills. Prior Authorization Documentation Prior authorization requested for the following medication: Medication: Glipizide Provider: Sushma Escobedo Insurance Company Name: [employer]vant[employer] Phone number:[phone] Patient ID number: [id number] Pharmacy Name: [facility] Telephone number: [phone] [facility] 04-30-2025 Instructions Fouzia Escobedo APRN.CNP - 04/30/2025 11:41 AM EDT Send me a blood sugar log in 2 weeks after taking the 10mg of glucotrol xl (5mg twice per day) Follow up as already scheduled with Dr Vasquez documented in this encounter [facility] 04-30-2025 Note HNO ID: [id number] Author: FOUZIA ESCOBEDO APRN.CNP Service: ? Author [...] wound dressing changes - Recent visit to conduit reamer operator Dr. 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 Ortiz [facility]-03/25/2020 left mild, right moderate Multiple thyroid nodules last US 01/2015 Peripheral artery disease due to Diabetes mellitus, Dr. Kwaku Moscoso Rotator cuff syndrome of left shoulder Dr. Regi Montes [facility] PAST SURGICAL HISTORY Procedure Laterality Date AMPUTATION [...] ROTATOR CUFF REPAIR 03/11/14 Dr. Regi [facility]V CATHJ EA 1ST ORD ABDL PEL/LXTR [...] Take 1 tablet by mouth once daily. Ammzircs-Iqyn-Ldj-Folic Acid 18-0.4 mg tab Take 1 tablet by mouth once daily. omega-3 fatty acids 1,000 mg cap Take 1 capsule by mouth once d (more content not included)... [facility] 04-30-2025 History of Presen t illness [...] wound dressing changes - Recent visit to conduit reamer operator Dr. 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 Ortiz [facility]-03/25/2020 left mild, right moderate Multiple thyroid nodules last US 01/2015 Peripheral artery disease due to Diabetes mellitus, Dr. Kwaku Moscoso Rotator cuff syndrome of left shoulder Dr. Regi Montes [facility] PAST SURGICAL HISTORY Procedure Laterality Date AMPUTATION [...] VSL 04-08-13 ROTATOR CUFF REPAIR [facility]LXTR [facility] 7-20-16 APLL ALLERGIES Sulfa (Sulfonamide Antibiotics) MEDICATIONS [...] Take 1 tablet by mouth once daily. Uadjmobw-Ypxa-Cko-Folic Acid 18-0.4 mg tab Take 1 tablet [...] as needed for worsening/no improvement. Fouzia Escobedo APRN.MARKETING RECRUITER Recording using [employer] software for draft documentation of the visit was discussed with the patient/authorized motor vehicle representative; all questions welcomed and answered. Patient/authorized motor vehicle representative agreed to proceed documented in this encounter [facility] 04-27-2025 Radiology Diagnostic study note [facility] Imaging Services [address] [place], [place] [address] Thyroid MR#: [id number] Acct: [id number] Name: GELY NEWMAN Rep #: [id number] : 1950 F 75 From: Courtney Bright MD PCP: Dr. Rishi Vasquez, DO Status: RE G CLI Study:Thyroid Date of Exam: 04/27/25 Exam# [id number] Ordering Dr: Alla Renee MD PROCEDURE: THYROID, [...] of the ACR TI-RADS Committee, 2017 (https://linkinghub.elsevier.co m/[email or web address]) Reading Location: [id number] CC: Dr. Rishi Vasquez, ; Dr. Ciaran Renee MD ~ Signal Operator Technical: Signed [facility] 04-16-2025 Telephone encounter Note Jessika calling from [facility] to report plan of care for patient and prison will continue visit patient 1 time a week for 5 weeks. group home will work with patient on wound care to bilateral lower extremities. Patient is being follow by Dr. Irene for wound care. No call back needed. Hina Lomeli RN [facility] 04-16-2025 Miscellaneous Notes Jessika calling from [facility] to report plan of care for patient and prison will continue visit patient 1 time a week for 5 weeks. group home will work with patient on wound care to bilateral lower extremities. Patient is being follow by Dr. Irene for wound care. No call back needed. Hina Lomeli RN documented in this encounter [facility] 04-07-2025 Telephone encounter Note Patient calls for [...] vomiting Protocols used: Diabetes - High Blood Fralu-BYTQD-LJ T [facility] 04-07-2025 Miscellaneous Notes Patient calls for elevated [...] vomiting Protocols used: Diabetes - High Blood Ooqpq-JVYIV-OL documented in this encounter [facility] 03-27-2025 Instructions Podlogar, TAY Calderon.MARKETING RECRUITER - 03/27/2025 10:36 AM EDT WHAT YOU [...] review all the medicines you take, even wdom-wgr-jbagelx medicines. As you get older, the way [...] certain medical conditions. documented in this encounter [facility] 03-27-2025 History of Presen t illness Narrative 03/26/2025 Patient presents with: ER F/U: [facility] ED -03/20/25 Multiple falls, gangrene SADIE feet SUBJECTIVE: This is a 75 year old that is here today for Above Complaints. HOSPITAL/ER FOLLOW UP: Reason for visit: Recurrent falls, Which facility: [facility] transferred to [facility] Date of visit: 03/07/2025-03/11/2025 [facility] then to U 03/11/2025-03/19/2025 Diagnosis: UTI, [...] mellitus (HCC) Coronary artery disease Dr. 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 Ortiz [facility]-03/25/2020 left mild, right moderate Multiple thyroid nodules last US 01/2015 Peripheral artery disease (HCC) due to Diabetes mellitus, Dr. Kwaku Moscoso Rotator cuff syndrome of left shoulder Dr. Deluna [facility] ALLERGIES Sulfa (Sulfonamide Antibiotics) MEDICATIONS Current Outpatient [...] Take 1 tablet by mouth once daily. Dhldknsd-Fczk-Xgi-Folic Acid 18-0.4 mg tab Take 1 tablet [...] which included preparing to see the patient, cytl-kx-xtnk patient care, completing clinical documentation, obtaining and/or reviewing separately obtained history, performing a medically appropriate examination, counseling and educating the patient/family/caregiver, and ordering medications, tests, or procedures. documented in this encounter [facility] 03-27-2025 Note HNO ID: [id number] Author: YUMIKO WHITEHEAD APRN.CNP Service: ? Author Type: Nurse Practitioner Type: Progress Notes Filed: 03/27/2025 11:01 Note Text: 03/26/2025 Patient presents with: ER F/U: [facility] ED -03/20/25 Multiple falls, gangrene SADIE feet SUBJECTIVE: This is a 75 year old that is here today for Above Complaints. HOSPITAL/ER FOLLOW UP: Reason for visit: Recurrent falls, Which facility: [facility] transferred to [facility] Date of visit: 03/07/2025-03/11/2025 [facility] then to TCU 03/11/2025-03/19/2025 Diagnosis: UTI, [...] mellitus (HCC) Coronary artery disease Dr. Ch General Production Laborer, 90% blockage- unable to do stenting Diabetes mellitus type 2 in obese Diabetic feet (HCC) Gangrene (HCC) 2012 RIGHT FOOT Hypertension Mild non proliferative diabetic retinopathy ([facility]) 06/11/2013 Both eyes, Dr. Ortiz [facility]-03/25/2020 left mild, right moderate Multiple [...] Take 1 tablet by mouth once daily. Uvmazopj-Fapc-Rlw-Folic Acid 18-0.4 mg tab Take 1 tablet [...] Screen (more content not included)... [facility] 03-26-2025 Telephone encounter Note Agree. BP will be reassessed at appointment tomorrow. Let us know if not addressed at appointment tomorrow. Thank you, Clary Andres APRN.MARKETING RECRUITER [facility] Work Phone: 03-26-2025 Miscellaneous Notes Agree. BP will be reassessed at appointment tomorrow. Let us know if not addressed at appointment tomorrow. Thank you, Clary Andres APRN.MARKETING RECRUITER Wendi WERNER - [facility] HH- reporting updated POC: plans to [...] if pcp agrees. documented in this encounter [facility] 03-26-2025 Telephone encounter Note Ghislaine- OT - [facility] HH- reporting updated POC: plans to [...] is going to talk to provider at [facility] tomorrow about getting a front wheeled walker. No call back needed if pcp agrees. [facility] 03-24-2025 Telephone encounter Note Noted Rishi Vasquez DO [facility] 03-24-2025 Miscellaneous Notes Noted Rishi Vasquez DO [facility] calling from [facility] to report plan of care for patient and PT will visit patient 2 times a week for two weeks. PT will work with patient on functional mobility. No call back needed. Clemencia Chapman RN documented in this encounter [facility] 03-24-2025 Telephone encounter Note Ishaan PT calling from [facility] to report plan of care for patient and PT will visit patient 2 times a week for two weeks. PT will work with patient on functional mobility. No call back needed. Clemencia Chapman RN [facility] 03-24-2025 Telephone encounter Note Noted Jesenia Mcgee PA-C [facility] Work Phone: 03-24-2025 Miscellaneous Notes Noted Jesenia Mcgee PA-C Tatum with [facility] Nursing calls to report she saw pt today for start of care. Nursing will see pt once a week x 2 weeks then twice a week x 1 week, then once a week x 1. Nursing will be doing wound care and teaching wound prevention and education. Melly Pinon LPN documented in this encounter [facility] 03-23-2025 Telephone encounter Note Tatum with [facility] Nursing calls to report she saw pt today for start of care. Nursing will see pt once a week x 2 weeks then twice a week x 1 week, then once a week x 1. Nursing will be doing wound care and teaching wound prevention and education. Melly Pinon LPN [facility] 03-23-2025 Telephone encounter Note Call placed to Yvonne and notified of below. Clemencia Chapman RN [facility] 03-23-2025 Miscellaneous Notes Call placed to Yvonne and notified of below. Clemencia Chapman RN Yes Rishi Vasquez DO Yvonne with [facility] calls to ask if provider would be willing to follow their discharge orders for SN, PT, OT. Patient discharged home today from [facility] after having hospitalization and rehab for falls and UTI. Call back number is [phone]. Clemencia Chapman RN documented in this encounter [facility] 03-20-2025 Telephone encounter Note Yes Rishi Vasquez DO [facility] 03-20-2025 Telephone encounter Note Yvonne with [facility] calls to ask if provider would be willing to follow their discharge orders for SN, PT, OT. Patient discharged home today from [facility] after having hospitalization and rehab for falls and UTI. Call back number is [phone]. 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 inactive March 11, 2025 5:26pm Chronic painful diabetic polyneuropathy inactive March 11, 2025 5:26pm Other specified peripheral vascular diseases inactive March 11, 2025 5:26pm 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 acute April 03, 2 025 10:32am [facility] Work Phone: 1(573) 687-242004-19-2025 Evaluation note* Diagnosis Onset Date Resolution Status [...] chronic March 07, 2025 4:25pm Atherosclerosis of [place] ar riaz of both lower extremities with [...] chronic March 11, 2025 5:26pm Atherosclerosis of [place] ar riaz of both lower extremities with [...] polyneuropathy chronic April 03, 2025 1 0:32am [facility] Work Phone: 1(741) 523-149404-19-2025 Evaluation note* Diagnosis Onset Date Resolution Status [...] chronic March 07, 2025 4:25pm Atherosclerosis of [place] ar riaz of both lower extremities with [...] chronic March 11, 2025 5:26pm Atherosclerosis of [place] ar riaz of both lower extremities with [...] 2025 9:17am Atherosclerosis of coronary artery of [place] heart without angina pectoris chronic May 07, 2025 9:17am Essential hypertension chronic Ju 2024 9:17am Hyperlipidemia chronic May 07, 2025 9:17am [facility] Work Phone: 1(399) 437-664404-19-2025 Radiology Diagnostic study note [facility] Imaging Services [address] [place] [address] [id number] HIP, UNI W/ Pelvis 2-3 Views MR#: [id number] Acct: [id number] Name: GELY NEWMAN Rep #: [id number] : 1950 F 75 From: Renetta Davis MD PCP: Dr. Rishi Vasquez, DO Status: RE G ER Study:HIP, UNI W/ Pelvis 2-3 Views Date of Ex am: 03/07/25 Exam# [id number] Ordering Dr: Megan Vega PROCEDURE: HIP, UNI [...] obvious acute fracture given limitations. Reading Location: [facility] CC: Dr. Rishi Vasquez DO; LILLIAM Joshua ~ Signal Operator Technical: Signed [facility]04-19-2025 Radiology Diagnostic study note [facility] Imaging Services [address] [place] [id number] Chest 1 View (Portable) MR#: [id number] Acct: [id number] Name: GELY NEWMAN Rep #: [id number] : 1950 F 75 From: Renetta Davis MD PCP: Dr. Rishi Vasquez DO Status: RE G ER Study:Chest 1 View (Portable) Date of Exam: 03/07/25 Exam# [id number] Ordering Dr: Megan Vega PROCEDURE: CHEST 1 [...] (Portable) IMPRESSION: No Acute Findings. Reading Location: [facility] CC: Dr. Rishi Vasquez DO; LILLIAM Joshua ~ Signal Operator Technical: Signed [facility]04-19-2025 Evaluation note* Diagnosis Onset Date Resolution Status Admit Date Acute UTI acute March 07 4:25pm SHAYY (acute kidney injury) acute March 07, 2025 4:25pm Anemia acute March 07 4:25pm Contusion of left hip acute Apr 2024 4:25pm GI bleed acute March 07 4:25pm Recurrent falls acute February 4:25pm Rhabdomyolysis acute February 4:25pm Chronic kidney disease chronic Ap ril 2024 4:25pm [facility] Work Phone: 1(387) 132-748502-06-2025 Telephone encounter Note* Telephone Encounter - Sara [...] Solis RN December 25, 2024 5:59 PM [facility]02-06-2025 Miscellaneous Notes* Telephone Encounter - Sara Solis [...] 25, 2024 5:59 PM documented in this encounter[facility]25 NoteHNO ID: [id number] Author: RISHI VASQUEZ, DO Service: ? Author [...] Seeing Dr. Franco for pain mgmt at [facility] and she is now taking Lyrica [...] mellitus (HCC) Coronary artery disease Dr. 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 Ortiz [facility]-03/25/2020 left mild, right moderate Multiple thyroid nodules last US 01/2015 Peripheral artery disease (HCC) due to Diabetes mellitus, Dr. Kwaku Moscoso Rotator cuff syndrome of left shoulder Dr. Deluna [facility] PAST SURGICAL HISTORY Procedure Laterality Date AMPUTATION [...] ROTATOR CUFF REPAIR 03/11/14 Dr. Deluna [facility] SLCTV CATHJ EA 1ST ORD ABDL [...] by paolo (more content not included)...[facility]01-17-2025 History of Present illness Narrative* Rishi [...] walking. Seeing Dr. Headley pain mgmt at [facility] and she is now taking Lyrica [...] mellitus (HCC) Coronary artery disease Dr. 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 Ortiz [facility]-03/25/2020 left mild, right moderate Multiple [...] ROTATOR CUFF REPAIR 03/11/14 Dr. Regi [facility] SLCTV CATHJ EA 1ST ORD ABDL PEL/LXTR [...] Take 1 tablet by mouth once daily. Rizdcugm-Gqkw-Ttc-Folic Acid 18-0.4 mg tab Take 1 tablet [...] with the plan. Rishi Vasquez DO [address] [place] [address] documented [facility] Telephone encounter Note * Telephone Encounter - Meagan Martinez MA - 09/15/2024 10:28 AM EDT Call to pt and notified her of response below from Provider. Pt verbalized understanding. Meagan Martinez MA [facility]10-28-2024 Miscellaneous Notes* Telephone Encounter - Meagan Martienz MA - 09/15/2024 10:28 AM EDT Call [...] out to provider. Requests call back at [phone] with provider response. Clemencia Chapman RN documented in this [facility]24 Telephone encounter Note * Telephone Encounter - Rishi Vasquez DO - 09/13/2024 12:24 PM EDT Okay with these considerations by specialist Rishi Vasquez DO [facility]10-23-2024 Telephone encounter Note* Telephone Encounter - Clemencia [...] out to provider. Requests call back at [phone] with provider response. Clemencia Chapman RN [facility]10-01-2024 Miscellaneous Notes* Telephone Encounter - Leatha Long [...] EDT Pt wrote into the office via [employer] on 08/16/24 with questions regarding medications. Please [...] HAS HELPED. GELY NEWMAN documented in this [facility]24 Telephone encounter Note * Telephone Encounter - Leatha Long LPN - 08/19/2024 2:29 PM EDT Patient notified via voice mail message. Leatha Long LPN [facility]10-01-2024 Telephone encounter Note* Telephone Encounter - Jesenia Mcgee PA-C - 08/19/2024 1:35 PM EDT Please let patient know that she can take Fish Oil 1000 mg. Jesenia Mcgee PA-C 08/19/2024 [facility] Work Phone: 1(550) 705-564009-30-2024 Telephone encounter Note* Telephone Encounter - Meagan Martinez MA - 08/18/2024 8:47 AM EDT Pt wrote into the office via [employer] on 08/16/24 with questions regarding medications. Please [...] WENT WELL AND HAS HELPED. GELY NEWMAN [facility]09-30-2024 Telephone encounter Note* Telephone Encounter - Meagan Martinez MA - 08/18/2024 8:46 AM EDT Turned into TE and routed to PCP to advise. Meagan Martinez MA [facility]09-30-2024 Miscellaneous Notes* Telephone Encounter - Meagan Martinez MA - 08/18/2024 8:46 AM EDT Turned into TE and routed to PCP to advise. Meagan Martinez MA documented in this encounter[facility]-2024 Telephone encounter Note * Telephone Encounter - Nasim López LPN - 08/12/2024 4:58 PM EDT Pt. informed via My Chart [facility]09-24-2024 Miscellaneous Notes* Telephone Encounter - Nasim Jauregui [...] advise, Hina Lomeli RN documented in this encounterSelect [facility]-2024 Telephone encounter Note * Telephone Encounter - Rishi Vasquez DO - 08/12/2024 4:54 PM EDT Patient has some chronic kidney disease stage 3, which is from her diabetes. She needs to make surethat the specialist doesn't think this will be a concern. Her GFR is 48 Rishi Vasquez DO [facility]09-23-2024 Telephone encounter Note* Telephone Encounter - Meagan [...] NAME OF THE MEDICATION IS ISCHROLBARSA. [employer] SAID IT IS A STEROID. WHAT DO YOU THINK. I AM GOING TO CALL AND CANCEL THE APPOINTMENT FOR SUNDAY AND RESCHEDULE FOR ANOTHER DAY AND HOPETHAT I HEAR FROM YOU. THANK YOU FOR YOUR TIME AND UNDERSTANDING ON THE ISSUE. WILL AWAIT YOUR REPLY GELY NEWMAN [facility]09-20-2024 Telephone encounter Note* Telephone Encounter - Hina [...] Please review and advise, Hina Lomeli RN [facility]07-26-2024 Telephone encounter Note* Telephone Encounter - Nasim López LPN - 06/13/2024 11:14 AM EDT Needs referral faxed to [facility] for Pain Management. This has been faxed. [facility]07-26-2024 Miscellaneous Notes* Telephone Encounter - Nasim Jauregui LPN - 06/13/2024 11:14 AM EDT Needs referral faxed to [facility] for Pain Management. This has been faxed. documented in this encounterSelect [facility]07-23-2024 NoteHNO ID: [id number] Author: ?, ?, ? Service: ? Author Type: ? Type: Progress Notes Filed: 06/10/2024 13:07 Note Text: POPULATION HEALTH NAVIGATION OUTREACH Action/FYI [place] Support: Called pt to schedule an appt in Pain Management. Lvm for pt to call [phone]. Reason for Outreach Care Gap/HCC or Scheduling Wellness Visits Care Gaps due: Specialty Scheduling Patient Contacted: Unable or unnecessary to reach patient: Left message MyChart message sent Navigation Signature: Gordon A Roverto June 10, 2024 1:06 [facility]07-23-2024 History of Present illness Narrative* Gordon Min - 06/10/2024 1:06 PM EDT POPULATION HEALTH NAVIGATION OUTREACH Action/FYI AC [place] Support: Called pt to schedule an appt in Pain Management. Lvm for pt to call [phone]. Reason for Outreach Care Gap/HCC or Scheduling Wellness Visits Care Gaps due: Specialty Scheduling Patient Contacted: Unable or unnecessary to reach patient: Left message Instilling Values message sent Navigation Signature: Gordon Min June 10, 2024 1:06 PM documented in this encounterSelect [facility]-2024 NotePatient Outreach (NETNAV) GELY NEWMAN ([id number]) 1950 F Date Time Provider Department 06/10/24 NO PCP NETNAV During your visit today, we recorded the following information about you: Gordon Min 06/10/2024 1:07 PM Signed POPULATION HEALTH NAVIGATION OUTREACH Action/[facility] Support: Called pt to schedule an appt in Pain Management. Lvm for pt to call [phone]. Reason for Outreach Care Gap/HCC or Scheduling Wellness Visits Care Gaps due: Specialty Scheduling Patient Contacted: Unable or unnecessary to reach patient: Left message Instilling Values message sent Navigation Signature: Gordon Min June [...] 1 tablet by mouth once daily. - Cbcwyctv-Nxbk-Cdg-Folic Acid 18-0.4 mg tab Take 1 tablet [...] [L72.3, L08.9] 02/26/2019 Coronary artery disease involving win[place] heart *05/28/2019 Abnormal urine odor [R82.90] 05/28/2019 [...] Status:Closed by GORDON MIN on 06/10/24[facility]07-17-2024 Telephone encounter Note* Telephone Encounter - Keisha Coronado RN - 06/04/2024 3:59 PM EDT Spoke with patient. Given message from provider's office. Patient verbalizes understanding. Keisha Coronado RN [facility]07-17-2024 Miscellaneous Notes* Telephone Encounter - Keisha Coronado [...] year. Thanks BOB Ernst documented in this encounterSelect [facility]07-17-2024 Telephone encounter Note * Telephone Encounter - Aiyana Gaffney LPN - 06/04/2024 2:49 PM EDT Phoned patient left message to return call and ask to speak to a nurse. [facility]07-17-2024 Telephone encounter Note* Telephone Encounter - Rishi Vasquez DO - 06/04/2024 2:36 PM EDT Please inform patient that her mammogram is normal/negative. She will need routine screening mammogram in 1 year. Thanks Rishi Vasquez DO' [facility]07-17-2024 Note* Letter - Coordinator, Mammography - 06/04/2024 2:01 PM EDT June 04, 2024 PID: [id number] Gely Newman [address] [place] [address] Dear Ms. Newman, We are pleased to [...] report will be kept on file at [facility] as part of your permanent medical record and are available for your continuing care. Thank you for allowing us to help in meeting your health care needs. Sincerely, Dr. Monteiro Interpreting Radiologist [facility] (Normal over 40) [facility]07-17-2024 Miscellaneous Notes* Letter - Coordinator, Mammography - 06/04/2024 2:01 PM EDT June 04, 2024 PID: [id number] Gely Newman [address] [place] [address] Dear Ms. Newman, We are pleased to [...] report will be kept on file at [facility] as part of your permanent medical record and are available for your continuing care. Thank you for allowing us to help in meeting your health care needs. Sincerely, Dr. Monteiro Interpreting Radiologist [facility] (Normal over 40) documented in this encounterSelect [facility]07-17-2024 NoteHNO ID: [id number] Author: RISHI VASQUEZ, DO Service: ? Author [...] mellitus (HCC) Coronary artery disease Dr. 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 Ortiz [facility]-03/25/2020 left mild, right moderate Multiple thyroid nodules last US 01/2015 Peripheral artery disease (HCC) due to Diabetes mellitus, Dr. Kwaku Moscoso Rotator cuff syndrome of left shoulder Dr. Deluna [facility] PAST SURGICAL HISTORY Procedure Laterality Date AMPUTATION [...] ROTATOR CUFF REPAIR 03/11/14 Dr. Deluna [facility] SLCTV CATHJ EA 1ST ORD ABDL [...] two t (more content not included)...[facility]07-17-2024 History of Present illness Narrative* Rishi [...] mellitus (HCC) Coronary artery disease Dr. 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 Ortiz [facility]-03/25/2020 left mild, right moderate Multiple thyroid nodules last US 01/2015 Peripheral artery disease (HCC) due to Diabetes mellitus, Dr. Kwaku Moscoso Rotator cuff syndrome of left shoulder Dr. Deluna [facility] PAST SURGICAL HISTORY Procedure Laterality Date AMPUTATION [...] ROTATOR CUFF REPAIR 03/11/14 Dr. Deluna [facility] SLCTV CATHJ EA 1ST ORD ABDL [...] Take 1 tablet by mouth once daily. Cmdaidbg-Vbot-Qhl-Folic Acid 18-0.4 mg tab Take 1 tablet [...] agreed with the plan. Rishi Vasquez DO [address] [place] [address] documented in this encounterSelect [facility] History of Present illness Narrative* Elizabeth Sandoval [...] PATIENT PRESENTS WITH AN IMPLANTABLE OR ATTACHED CLINICAL PRODUCT MANAGER: No RADIOLOGY DEPARTMENT: Mammography PERIPHERAL IV DATA: Not applicable SIGNED BY: RT Mono(Chau) June 03, 2024 9:08 AM documented in this encounterSelect [facility]07-16-2024 NoteHNO ID: [id number] Author: ELIZABETH SANDOVAL RT(Chau) Service: ? Author [...] PATIENT PRESENTS WITH AN IMPLANTABLE OR ATTACHED CLINICAL PRODUCT MANAGER: No RADIOLOGY DEPARTMENT: Mammography PERIPHERAL IV DATA: Not applicable SIGNED BY: RT Mono(R) June 03, 2024 9:08 [facility]07-01-2024 Telephone encounter Note* Telephone Encounter - Joanie Rosario LPN - 05/19/2024 12:29 PM EDT Pt was notified of such. [facility]07-01-2024 Miscellaneous Notes* Telephone Encounter - Joanie Rosario [...] 05/19/2024 9:16 AM EDT Pt sent in [employer] message asking for lab orders for her upcoming appt 06/04/24. She would like these ordered so she can schedule lab appt. Please notify her once these have been ordered. Labs pended,please review and file. Meagan Martinez MA documented in this encounterSelect [facility]07-[facility]-2024 Telephone encounter Note * Telephone Encounter - Clary Andres APRN.CNP - 05/19/2024 11:31 AM EDT Labs are signed as pended. Please make sure she knows these are to be fasting. Thank you, Clary Andres APRN.MARKETING RECRUITER [facility]07-01-2024 Telephone encounter Note* Telephone Encounter - Meagan Martinez MA - 05/19/2024 9:16 AM EDT Pt sent in [employer] message asking for lab orders for her upcoming appt 06/04/24. She would like these ordered so she can schedule lab appt. Please notify her once these have been ordered. Labs pended,please review and file. Meagan Martinez MA [facility]07-01-2024 Telephone encounter Note* Telephone Encounter - Meagan Martinez MA - 05/19/2024 9:15 AM EDT Started TE and routed to Provider. Meagan Martinez MA [facility]07-01-2024 Miscellaneous Notes* Telephone Encounter - Meagan Martinez MA - 05/19/2024 9:15 AM EDT Started TE and routed to Provider. Meagan Martinez MA documented in this encounterSelect [facility]24 Telephone encounter Note * Telephone Encounter - [...] Please advise. Thank you. Michaela Millan MA. [facility]05-06-2024 Miscellaneous Notes* Telephone Encounter - Michaela Millan [...] you. Michaela Millan MA. documented in this encounterSelect [facility]05-[facility]-2024 History of Present illness Narrative* Anselmo Marr [...] Therapeutic exercise, Neuromuscular re- education, Manual therapy, Self-senior living management, and Gait training. Updated: 02/14/24 and [...] 1043 Anselmo Marr PT documented in this encounterSelect [facility]04-22-2024 History of Present illness Narrative* Thomas Keisha, ANISA - 03/10/2024 11:34 AM EDT Program_ID:[id number] Access Code: [email or web address] URL: [email or web address] Date: 03-10-2024 Prepared By: Anselmo Marr Program [...] deviations identified in the objective section above. Self-Custodial Management: 1: Pt's questions answered in regards [...] 1144 ANISA Rodriguez PT documented in this encounterSelect [facility]04-18-2024 History of Present illness Narrative* Anselmo Marr, [...] LEVEL OF FUNCTION: TREATMENT: Therapeutic Exercise: 1: TrafflineFit StepOne seat #11 x6 minutes (Pt provided [...] 1044 Anselmo Marr PT documented in this encounterSelect [facility]03-21-2024 Miscellaneous Notes* Telephone Encounter - Lebron Jacome RN - 02/07/2024 2:13 PM EDT Faxed general surgery referral and US thyroid/parathyroid to Dr. Kwaku Moscoso, per patient request (reports Dr. Moscoso never received them). . Confirmation received. * Telephone Encounter - Selma Galeano - 01/14/2024 2:38 PM EST Faxed Selma Galeano documented in this encounterSelect [facility]03-19-2024 History of Present illness Narrative* Keisha Guzman PTA - 02/05/2024 9:22 AM EDT Program_ID:[id number] Access Code: [email or web address] URL: [email or web address] Date: 02-05-2024 Prepared By: Anselmo Marr Program [...] use of cane. TREATMENT: Therapeutic Exercise: 1: Bikmo StepOne seat #12 x6 minutes (1:1 throughout.) [...] 929 ANISA Rodriguez PT documented in this encounterSelect [facility]03-13-2024 History of Present illness Narrative* Anselmo Marr [...] cane to therapy. TREATMENT: Therapeutic Exercise: 1: Bikmo StepOne seat #12 x6 minutes (1:1 throughout. [...] 1050 Anselmo Marr PT documented in this encounterSelect [facility]03-11-2024 Miscellaneous Notes* Telephone Encounter - Laura Isaac [...] you. Laura Isaac LPN. documented in this encounterSelect [facility]03-06-2024 History of Present illness Narrative* Anselmo Marr [...] LEVEL OF FUNCTION: TREATMENT: Therapeutic Exercise: 1: Bikmo StepOne seat #12 x6 minutes (1:1 throughout. [...] Marr PT - 01/23/2024 10:31 AM EST Program_ID:[id number] Access Code: [email or web address] URL: [email or web address] Date: 01-23-2024 Prepared By: Anselmo Marr Program [...] sets - 10 reps documented in this encounterSelect [facility]02-27-2024 History of Present illness Narrative* Anselmo Marr [...] Planned: 6 Planned Treatment Interventions: Therapeutic exercise (92311), Neuromuscular re- education (25937), Manual therapy (47263), Therapeutic activities (22952), Self- senior living management (57889), Gait Training (07503), Patient/Family/Caregiver Education, Body Mechanics Training, Functional training [...] Marr PT - 01/15/2024 10:42 AM EST Program_ID:[id number] Access Code: [email or web address] URL: [email or web address] Date: 01-15-2024 Prepared By: Anselmo Marr Program Notes Exercises - Hooklying Single Knee to Chest Stretch - 3 x daily - 7 x weekly - sets - 3 reps - Supine Double Knee to Chest - 3 x daily - 7 x weekly - sets - 3 reps documented in this encounterSelect [facility]02-22-2024 Miscellaneous Notes* Telephone Encounter - Keisha Coronado [...] of the nodules esophoria documented in this encounterSelect [facility]02-14-2024 Miscellaneous Notes* Telephone Encounter - Ira Moreno [...] THANK YOU, GELY NEWMAN documented in this encounterSelect [facility]02-08-2024 Miscellaneous Notes* Telephone Encounter - Betsey Kerr LPN - 12/27/2023 2:04 PM EST Sent to provider in phone encounter. documented in this encounterSelect [facility]02-01-2024 History of Present illness Narrative* Rebecca Puente [...] PATIENT PRESENTS WITH AN IMPLANTABLE OR ATTACHED CLINICAL PRODUCT MANAGER: No RADIOLOGY DEPARTMENT: Ultrasound PERIPHERAL IV DATA: Not applicable SIGNED BY: Rebecca Puente RDMS RVT December 20, 2023 4:21 PM documented in this encounterSelect Medical [facility]01-22-2024 NoteIMPRESSION: DEGENERATIVE CHANGE IN ALIGNMENT ABNORMALITIES DESCRIBED. PROGRESSION PRIOR STUDY. NO ACUTE ABNORMALITY Signal Operator Technical: SANDRA Transcribe Date/Time: Dec 10 2023 1:03P Dictated by : CHASE SUE MD This examination was interpreted and the report reviewed and electronically signed by: CHASE SUE MD on Dec 10 2023 1:17PM EST DIVISION OF [id number] History of Present illness Narrative* Sienna Mendoza [...] 10, 2023 8:44 AM documented in this encounterSelect Medical [facility]11-15-2023 Miscellaneous Notes* Telephone Encounter - Aiyana Gaffney [...] end of the week. documented in this encounterSelect [facility]10-10-2023 Miscellaneous Notes* Telephone Encounter - Dillon Watts APRN.CNP - 08/28/2023 7:55 AM EDT Noted, thank you. Dillon Watts APRN.MARKETING RECRUITER * Telephone Encounter - Lebron Jacome RN [...] results to Dr. Membreno at fax # [phone]. Confirmation received. * Telephone Encounter - Aiyana [...] SARIAH Morrison: Miscellaneous Lab documented in this encounterSelect [facility]09-13-2023 Miscellaneous Notes* Telephone Encounter - Nasim López [...] had blood work done at [facility]. View External Labs - Microbiology [ID [id number]] View External Labs - Miscellaneous Lab [ID [id number]] documented in this encounterSelect Medical [facility]08-22-2023 Miscellaneous Notes* Telephone Encounter - Kristie Delarosa LPN - 07/10/2023 11:54 AM EDT Pt notified of same, verbalizes understanding. Kristie Delarosa LPN * Telephone Encounter - Danyelle Tripp PA-C - 07/10/2023 11:02 AM EDT Let patient know that repeat Mamm/US is normal. Return to yearly screenings. documented in this encounterSelect [facility]08-22-2023 History of Present illness Narrative* Rebecca Puente [...] 10, 2023 2:57 PM documented in this encounterSelect [facility]08-22-2023 History of Present illness Narrative* Elizabeth Sandoval [...] 10, 2023 9:56 AM documented in this encounterSelect [facility]07-17-2023 History of Present illness Narrative* Rishi Vasquez DO - 06/04/2023 11:42 AM EDT Patient presents with: 6 Month Exam HPI: Gely Newman is a 73 year old female who presents to the office today for review of health conditions. Concerns today: Carotid artery US on 06/22/[address] Moscoso, surgeon, on 07/10/23 for follow up CAD, has recently seen Dr. Schultz/Rick Bergeron CUSTOM TAILOR APPRENTICE, no recent new testing, no recent symptoms [...] mellitus (HCC) Coronary artery disease Dr. Ch [facility] Production Laborer, 90% blockage- unable to do stenting Diabetes mellitus type 2 in obese (HCC) Diabetic feet (HCC) Gangrene (HCC) 2012 RIGHT FOOT Hypertension Mild non proliferative diabetic retinopathy (HCC) 06/11/2013 Both eyes, Dr. Ort[facility]-03/25/2020 left mild, right moderate Multiple thyroid nodules last US 01/2015 Peripheral artery disease (HCC) due to Diabetes mellitus, Dr. Kwaku Moscoso Rotator cuff syndrome of left shoulder Dr. Deluna [facility] PAST SURGICAL HISTORY Procedure Laterality Date AMPUTATION [...] 04-08-13 ROTATOR CUFF REPAIR [facility]/11[facility]14 [facility] [...] Take 1 tablet by mouth once daily. Iyfsbxrr-Pull-Kwa-Folic Acid 18-0.4 mg tab Take 1 tablet [...] with the plan. Rishi Vasquez DO [address] [place] [address] documented in this encounterSelect Medical [facility]07-11-2023 Miscellaneous Notes* Telephone Encounter - Jessie Collins [...] views. Danyelle Tripp PA-C documented in this encounterSelect [facility]07-11-2023 Miscellaneous Notes* Letter - Coordinator, Mammography - 05/29/2023 12:21 PM EDT May 30, 2023 PID: [id number] Gely Newman [address] [place] [address] Dear Ms. Trent, Your recent breast imaging exam on 05/29/2023 showed a possible finding that requires additional imaging studies for a complete evaluation. Most such findings are probably benign (not cancer). If you have a healthcare provider who ordered/prescribed your screening mammogram: Please call [phone] or EXT: [phone] to schedule an appointment for your additional [...] and reports are kept on file at [facility] as part of your permanent medical record, and are available for your continuing care. Thank you for allowing us to help in meeting your health care needs. Sincerely, Dr. Stubbs Interpreting Radiologist [facility] (Additional imaging) documented in this encounterSelect Medical Specialty [facility]07-11-2023 History of Present illness Narrative* Hawa Will [...] 29, 2023 9:58 AM documented in this encounterSelect [facility]07-10-2023 Miscellaneous Notes* Telephone Encounter - Michaela Millan Ma - 05/28/2023 10:17 AM EDT Last office visit: 12/05/22 F/u scheduled: 06/04/23 Michaela Millan Ma documented in this encounterSelect Medical [facility]04-24-2023 Miscellaneous Notes* Telephone Encounter - Jessie Collins LPN - 03/12/2023 1:57 PM EDT Reina with Dr. Garner's office called and identified pt with name and date of . Pt getting DM shoes from them and they received everything except the office note from Dr. Sebastian 12-11-22. Requested this be faxed to them. Faxed to [phone]. Done. Jessie Collins LPN documented in this [facility]03-22-2023 Miscellaneous Notes* Telephone Encounter - Clary Andres APRN.CNP - 02/07/2023 3:05 PM EDT Order signed. Clary Andres APRN.CNP * Telephone Encounter - Selma Galeano - 02/05/2023 1:21 PM EDT Order pended Selma Galeano documented in this [facility]03-06-2023 Miscellaneous Notes* Telephone Encounter - Jessie Collins LPN - 01/22/2023 3:41 PM EST Spoke with pt and information listed below given. Pt verbalizes understanding. Jessie Collins LPN * Telephone Encounter - Any Rodriguez LPN - 01/22/2023 2:17 PM EST Message left for pt to return call to a nurse. * Telephone Encounter - Dillon Watts APRN.MARK - 01/22/2023 11:46 AM EST The [...] want to do a PA? Reference # [id number] documented in this encounterSelect [facility]02-20-2023 Miscellaneous Notes* Telephone Encounter - Joanie Rosario LPN - 01/08/2023 11:53 AM EST Rosalie--12/05/22 Nov--06/04/23 Last refill--07/17/22 180 with 0 refills Last labs--12/14/22 documented in this encounterSelect [facility]02-17-2023 Miscellaneous Notes* Telephone Encounter - Nasim López [...] needed Rishi Vasquez DO documented in this encounterSelect Medical [facility]02-16-2023 Miscellaneous Notes* Telephone Encounter - Joanie Rosario LPN - 01/04/2023 11:56 AM EST Spoke with pt gave information provided. [pt voices understanding. * Telephone Encounter - Rishi Vasquez DO - 01/04/2023 11:28 AM EST Please inform patient that her NM thyroid uptake scan shows no concerning abnormal uptake Rishi Vasquez DO documented in this encounterSelect Medical [facility]ty [facility]02-09-2023 History of Present illness Narrative* Evelin Alfaro, [...] [address] PERFORMED: No IV SITE: [facility] only - not applicable, oral or physician administered agents given to patient POST EXAM PIV STATUS: Not applicable PROCEDURE TYPE: NM INJECT: Thyroid Uptake and Scan. 375 microcuries Nal-123 Capsules. No other medications given.. ADMINISTRATION TIME: 09:22 PATIENT DISCHARGED TO: Ambulatory patient, left [place] department area. A Diagnostic radioactive procedure has taken place, with no further precautions necessary other than routine body substance precautions. More information regarding radiation safety can be found usingthis link: [email or web address] SIGNATURE: ISMAEL Mcpherson PATIENT NAME: Gely Newman DATE: December 28, 2022 TIME: 09:25 AM PAGER/CONTACT #: documented in this encounterSelect Medical [facility]02-01-2023 History of Present illness Narrative* Rebecca Puente [...] Not applicable SIGNED BY: Rebecca Puente RDMS [facility] December 20, 2022 11:23 AM documented in this encounterSelect Medical [facility]01-19-2023 Miscellaneous Notes* Telephone Encounter - Joanie Rosario LPN - 12/07/2022 10:41 AM EST Called pt left message as such. * Telephone Encounter - Dillon Watts APRN.CNP - 12/07/2022 10:09 AM EST No need for another carotid ultrasound at this time. Dillon Watts APRN.CNP * Telephone Encounter - Joanie Rosario LPN - 12/07/2022 9:57 AM EST Mrs. Newman came to [facility] , she states was scheduled for [...] to Rebeka to view. documented in this encounterSelect [facility]01-17-2023 History of Present illness Narrative* Rishi Vasquez, [...] mellitus (HCC) Coronary artery disease Dr. Ch General Production Laborer, 90% blockage- unable to do stenting Diabetes mellitus type 2 in obese (HCC) Diabetic feet (HCC) Gangrene (HCC) 2012 RIGHT FOOT Hypertension Mild non proliferative diabetic retinopathy (HCC) 06/11/2013 Both eyes, Dr. Ortiz [facility]-03/25/2020 left mild, right moderate Multiple thyroid nodules last US 01/2015 Peripheral artery disease (HCC) due to Diabetes mellitus, Dr. Kwaku Moscoso Rotator cuff syndrome of left shoulder Dr. Regi [facility] PAST SURGICAL HISTORY Procedure Laterality Date AMPUTATION [...] ROTATOR CUFF REPAIR 03/11/14 Dr. Regi [facility] CATHJ EA 1ST ORD ABDL PEL/LXTR [...] Take 1 tablet by mouth once daily. Mtwnbjbo-Sqpl-Lvr-Folic Acid 18-0.4 mg tab Take 1 tablet [...] with the plan. Rishi Vasquez DO [address] [place] [address] documented in this encounterSelect [facility]11-05-2022 History of Present illness Narrative* Camille Mitchell [...] mellitus (HCC) Coronary artery disease Dr. Ch General Production Laborer, 90% blockage- unable to do stenting Diabetes mellitus type 2 in obese (HCC) Diabetic feet (HCC) Gangrene (HCC) 2012 RIGHT FOOT Hypertension Mild non proliferative diabetic retinopathy (HCC) 06/11/2013 Both eyes, Dr. Ortiz [facility]-03/25/2020 left mild, right moderate Multiple thyroid nodules last US 01/2015 Peripheral artery disease (HCC) due to Diabetes mellitus, Dr. Kwaku Moscoso Rotator cuff syndrome of left shoulder Dr. Deluna [facility] Current Outpatient Medications Medication Sig Dispense Refill [...] Take 1 tablet by mouth once daily. Irswyiqm-Dtfr-Aib-Folic Acid 18-0.4 mg tab Take 1 tablet [...] 04-08-13 ROTATOR CUFF REPAIR 03/11/14 Dr. Deluna [facility] CATHJ EA 1ST ORD ABDL PEL/LXTR [facility] 06-07-16 APLL FAMILY HISTORY Problem Relation Age [...] CULTURE Camille Mitchell PA-C documented in this encounterSelect Medical [facility]10-20-2022 Miscellaneous Notes* Telephone Encounter - Sara Solis RN - 09/07/2022 11:05 AM EDT Pt called and is notified of providers results and instructions. Pt voices understanding. Pt sent information through Instilling Values per Pt request. 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 Also her TSH is slightly low. I don't think she is taking any thyroid medication. Need for recheck of thyroid labs in 1 month as ordered Rishi Vasquez DO documented in this encounterSelect Medical [facility]ty [facility]09-27-2022 History of Present illness Narrative* Camille Mitchell PA-C - 08/15/2022 1:07 PM EDT Images from the original note were not included. This note was created using Futonriter. Subjective Gely Newman is a 72 year [...] mellitus (HCC) Coronary artery disease Dr. Ch General Production Laborer, 90% blockage- unable to do stenting Diabetes mellitus type 2 in obese (HCC) Diabetic feet (HCC) Gangrene (HCC) 2012 RIGHT FOOT Hypertension Mild non proliferative diabetic retinopathy (HCC) 06/11/2013 Both eyes, Dr. Ortiz [facility]-03/25/2020 left mild, right moderate Multiple thyroid nodules last US 01/2015 Peripheral artery disease (HCC) due to Diabetes mellitus, Dr. Kwaku Moscoso Rotator cuff syndrome of left shoulder Dr. Deluna [facility] Current Outpatient Medications Medication Sig Dispense Refill [...] Take 1 tablet by mouth once daily. Qdkobgem-Rbae-Fpm-Folic Acid 18-0.4 mg tab Take 1 tablet [...] ROTATOR CUFF REPAIR 03/11/14 Dr. 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 Ch General Production Laborer, 90% blockage- unable to do stenting Diabetes mellitus type 2 in obese (HCC) Diabetic feet (HCC) Gangrene (HCC) 2012 RIGHT FOOT Hypertension Mild non proliferative diabetic retinopathy (HCC) 06/11/2013 Both eyes, Dr. Ortiz [facility]-03/25/2020 left mild, right moderate Multiple thyroid nodules last US 01/2015 Peripheral artery disease (HCC) due to Diabetes mellitus, Dr. Kwaku Moscoso Rotator cuff syndrome of left shoulder Dr. Deluna [facility] PAST SURGICAL HISTORY Procedure Laterality Date AMPUTATION [...] 04-08-13 ROTATOR CUFF REPAIR 03/11/14 Dr. Deluna [facility] CATHJ EA 1ST ORD ABDL PEL/LXTR [...] Take 1 tablet by mouth once daily. Vwxqlmqm-Cnar-Voi-Folic Acid (CENTRUM COMPLETE) 18-0.4 mg tab Take [...] plan. Kena Sims APRN.CNP documented in this encounterSelect Medical [facility]ty [facility]07-18-2022 Miscellaneous Notes* Telephone Encounter - Sara Solis [...] this. Dillon Watts APRN.CNP documented in this encounterSelect Medical [facility]ty [facility]07-18-2022 Miscellaneous Notes* Letter - Mammography Coordinator - 06/05/2022 12:46 PM EDT June 05, 2022 PID: [id number] Gely Newman [address] [place] [address] Dear Ms. Newman, Your recent breast imaging exam on 06/05/2022 showed a possible finding that requires additional imaging studies for a complete evaluation. Most such findings are probably benign (not cancer). If you have a healthcare provider who ordered/prescribed your screening mammogram: Please call [phone] or EXT: [phone] to schedule an appointment for your additional [...] and reports are kept on file at [facility] as part of your permanent medical record, and are available for your continuing care. Thank you for allowing us to help in meeting your health care needs. Sincerely, Dr. Benjamin Interpreting Radiologist [facility] (Additional imaging) documented in this encounterSelect Medical Specialty [facility]07-18-2022 History of Present illness Narrative* RT Mono(Chau) [...] 05, 2022 10:08 AM documented in this encounterSelect Medical [facility]07-13-2022 History of Present illness Narrative* Rishi Vasquez, - 05/31/2022 10:58 AM EDT Patient presents with: 6 Month Exam HPI: Gely Newman is a 72 year old female who presents to the office today for review of health conditions. Concerns today: PAD, hx of foot ulcerations, currently with one on her right foot, managed by Rugby Union Footballer Hx of CAD, PAD, sees [facility]. Will have follow up in the [...] mellitus (HCC) Coronary artery disease Dr. Ch General Production Laborer, 90% blockage- unable to do stenting Diabetes mellitus type 2 in obese (HCC) Diabetic feet (HCC) Gangrene (HCC) 2012 RIGHT FOOT Hypertension Mild non proliferative diabetic retinopathy (HCC) 06/11/2013 Both eyes, Dr. Ortiz [facility]-03/25/2020 left mild, right moderate Multiple thyroid nodules last US 01/2015 Peripheral artery disease (HCC) due to Diabetes mellitus, Dr. Kwaku Moscoso Rotator cuff syndrome of left shoulder Dr. Deluna [facility] PAST SURGICAL HISTORY Procedure Laterality Date AMPUTATION [...] 04-08-13 ROTATOR CUFF REPAIR 03/11/14 [facility]D [facility]DL PEL[facility]-16 APLL Social History Tobacco Use Smoking [...] Take 1 tablet by mouth once daily. Crcnpmbk-Jgft-Yqm-Folic Acid (CENTRUM COMPLETE) 18-0.4 mg tab Take [...] arise. 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 Coronary artery disease involving [place] heart, unspecified vessel or lesion type, unspecified whether angina present - ICD9: 414.01, ICD10: I25.10 - f/u with General Production Laborer, no new symptoms 9. Fatigue, unspecified type [...] with the plan. Rishi Vasquez DO [address] [place] [address] documented in this encounterSelect Medical [facility]ty [facility]07-06-2022 Miscellaneous Notes* Telephone Encounter - Yvonne Garcia - 05/24/2022 1:32 PM EDT LM on patient's VM to schedule consult for colonoscopy. First attempt. * Telephone Encounter - Garrick La - 05/24/2022 1:25 PM EDT Patient due for 5 year follow up colonoscopy. Patient is not appropriate for open access. Please schedule office consult Garrick La documented in this encounterSelect Medical [facility]ty [facility]06-14-2022 Miscellaneous Notes* Telephone Encounter - Jessie Collins [...] you. Jessie Collins LPN documented in this encounterSelect Medical Specialty [facility]06-06-2022 Miscellaneous Notes* Telephone Encounter - Clary Johnson [...] advise. Georgia Nicole LPN documented in this encounterSelect [facility]05-05-2022 Miscellaneous Notes* Telephone Encounter - Dillon Watts [...] refills Last labs-- 03/07/22 documented in this encounterSelect [facility]05-05-2022 Miscellaneous Notes* Telephone Encounter - Joanie Rosario LPN - 03/23/2022 8:43 AM EDT rosalie-- 12/02/21 Last refill-- 04/06/21 30 with 11 refills Last labs- 03/07/22 documented in this encounterSelect [facility]ty [facility]05-04-2022 Evaluation note* Diagnosis Stage 3 chronic kidney disease, unspecified whether stage 3a or 3b CKD (HCC)- Primary 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) Type II or unspecified type diabetes mellitus with peripheral circulatory disorders, not stated as uncontrolled documented in this encounter [facility]04[facility]08[facility]2022 Miscellaneous Notes* Telephone Encounter - Selma Sanders [...] concerns. Dillon Watts APRN.CNP [facility] History of Past illness Narrative* Problem Noted Date Resolved Date Benign paroxysmal positional vertigo 11/14/2017 11/30/2021 Essential hypertension 11/30/2015 6 documented as of this encounter (statuses as of 03/22/2022) [facility]27[facility]2017 History of Past illness Narrative* Problem Noted Date Resolved Date Benign paroxysmal positional vertigo 11/14/2017 11/30/2021 Essential hypertension 11/30/2015 6 documented as of this encounter (statuses as of 03/23/2022) [facility]-27-2017 History of Past illness Narrative* Problem Noted Date Resolved Date Benign paroxysmal positional vertigo 11/14/2017 11/30/2021 Essential hypertension 11/30/2015 6 documented as of this encounter (statuses as of 04/24/2022) [facility]-27-2017 History of Past illness Narrative* Problem Noted Date Resolved Date Benign paroxysmal positional vertigo 11/14/2017 11/30/2021 Essential hypertension 11/30/2015 6 documented as of this encounter (statuses as of 04/26/2022) [place] [address]-27-2017 History of Past illness Narrative* Problem Noted Date Resolved Date Benign paroxysmal positional vertigo 11/14/2017 11/30/2021 Essential hypertension 11/30/2015 6 documented as of this encounter (statuses as of 05/02/2022) [place] [address]-27-2017 History of Past illness Narrative* Problem Noted Date Resolved Date Benign paroxysmal positional vertigo 11/14/2017 11/30/2021 Essential hypertension 11/30/2015 6 documented as of this encounter (statuses as of 05/24/2022) [facility]-2017 History of Past illness Narrative* Problem Noted Date Resolved Date Benign paroxysmal positional vertigo 11/14/2017 11/30/2021 Essential hypertension 11/30/2015 6 documented as of this encounter (statuses as of 05/31/2022) [facility]2017 History of Past illness Narrative* Problem Noted Date Resolved Date Benign paroxysmal positional vertigo 11/14/2017 11/30/2021 Essential hypertension 11/30/2015 6 documented as of this encounter (statuses as of 06/06/2022) [facility]27-2017 History of Past illness Narrative* Problem Noted Date Resolved Date Benign paroxysmal positional vertigo 11/14/2017 11/30/2021 Essential hypertension 11/30/2015 6 documented as of this encounter (statuses as of 06/06/2022) [facility]-27-2017 History of Past illness Narrative* Problem Noted Date Resolved Date Benign paroxysmal positional vertigo 11/14/2017 11/30/2021 Essential hypertension 11/30/2015 6 documented as of this encounter (statuses as of 06/07/2022) [place] [address]-27-2017 History of Past illness Narrative* Problem Noted Date Resolved Date Benign paroxysmal positional vertigo 11/14/2017 11/30/2021 Essential hypertension 11/30/2015 6 documented as of this encounter (statuses as of 06/17/2022) [place] [id number] History of Past illness Narrative* Problem Noted Date Resolved Date Benign paroxysmal positional vertigo 11/14/2017 11/30/2021 Essential hypertension 11/30/2015 6 documented as of this encounter (statuses as of 08/15/2022) [facility] History of Past illness Narrative* Problem Noted Date Resolved Date Benign paroxysmal positional vertigo 11/14/2017 11/30/2021 Essential hypertension 11/30/2015 6 documented as of this encounter (statuses as of 09/07/2022) [place] [address]-27-2017 History of Past illness Narrative* Problem Noted Date Resolved Date Benign paroxysmal positional vertigo 11/14/2017 11/30/2021 Essential hypertension 11/30/2015 6 documented as of this encounter (statuses as of 09/09/2022) [place] [address]-27-2017 History of Past illness Narrative* Problem Noted Date Resolved Date Benign paroxysmal positional vertigo 11/14/2017 11/30/2021 Essential hypertension 11/30/2015 6 documented as of this encounter (statuses as of 09/23/2022) [facility] History of Past illness Narrative* Problem Noted Date Resolved Date Benign paroxysmal positional vertigo 11/14/2017 11/30/2021 Essential hypertension 11/30/2015 6 documented as of this encounter (statuses as of 12/05/2022) [place] [address]-27-2017 History of Past illness Narrative* Problem Noted Date Resolved Date Benign paroxysmal positional vertigo 11/14/2017 11/30/2021 Essential hypertension 11/30/2015 6 documented as of this encounter (statuses as of 12/07/2022) [place] [address]-27-2017 History of Past illness Narrative* Problem Noted Date Resolved Date Benign paroxysmal positional vertigo 11/14/2017 11/30/2021 Essential hypertension 11/30/2015 6 documented as of this encounter (statuses as of 01/04/2023) [address]27-2017 History of Past illness Narrative* Problem Noted Date Resolved Date Benign paroxysmal positional vertigo 11/14/2017 11/30/2021 Essential hypertension 11/30/2015 6 documented as of this encounter (statuses as of 01/05/2023) [address]27-2017 History of Past illness Narrative* Problem Noted Date Resolved Date Benign paroxysmal positional vertigo 11/14/2017 11/30/2021 Essential hypertension 11/30/2015 6 documented as of this encounter (statuses as of 01/09/2023) [address]27-2017 History of Past illness Narrative* Problem Noted Date Resolved Date Benign paroxysmal positional vertigo 11/14/2017 11/30/2021 Essential hypertension 11/30/2015 6 documented as of this encounter (statuses as of 02/07/2023) [address]27-2017 History of Past illness Narrative* Problem Noted Date Resolved Date Benign paroxysmal positional vertigo 11/14/2017 11/30/2021 Essential hypertension 11/30/2015 6 documented as of this encounter (statuses as of 03/02/2023) [place] [address]-27-2017 History of Past illness Narrative* Problem Noted Date Resolved Date Benign paroxysmal positional vertigo 11/14/2017 11/30/2021 Essential hypertension 11/30/2015 6 documented as of this encounter (statuses as of 03/12/2023) [address]27-2017 History of Past illness Narrative* Problem Noted Date Resolved Date Benign paroxysmal positional vertigo 11/14/2017 11/30/2021 Essential hypertension 11/30/2015 6 documented as of this encounter (statuses as of 03/12/2023) [place] [address]-27-2017 History of Past illness Narrative* Problem Noted Date Diagnosed Date Resolved Date Benign paroxysmal positional vertigo 11/14/2017 11/30/2021 Essential hypertension 11/30/201510/24 documented as of this encounter (statuses as of 05/28/2023) [facility]27[facility]2017 History of Past illness Narrative* Problem Noted Date Diagnosed Date Resolved Date Benign paroxysmal positional vertigo 11/14/2017 11/30/2021 Essential hypertension 11/30/201510/24 documented as of this encounter (statuses as of 05/30/2023) [facility]27-2017 History of Past illness Narrative* Problem Noted Date Diagnosed Date Resolved Date Benign paroxysmal positional vertigo 11/14/2017 11/30/2021 Essential hypertension 11/30/201510/24 documented as of this encounter (statuses as of 05/31/2023) [facility]2017 History of Past illness Narrative* Problem Noted Date Diagnosed Date Resolved Date Benign paroxysmal positional vertigo 11/14/2017 11/30/2021 Essential hypertension 11/30/201510/24 documented as of this encounter (statuses as of 06/05/2023) [facility] History of Past illness Narrative* Problem Noted Date Diagnosed Date Resolved Date Benign paroxysmal positional vertigo 11/14/2017 11/30/2021 Essential hypertension 11/30/201510/24 documented as of this encounter (statuses as of 07/10/2023) [facility]2017 History of Past illness Narrative* Problem Noted Date Diagnosed Date Resolved Date Benign paroxysmal positional vertigo 11/14/2017 11/30/2021 Essential hypertension 11/30/201510/24 documented as of this encounter (statuses as of 08/01/2023) [facility]2017 History of Past illness Narrative* Problem Noted Date Diagnosed Date Resolved Date Benign paroxysmal positional vertigo 11/14/2017 11/30/2021 Essential hypertension 11/30/201510/24 documented as of this encounter (statuses as of 08/28/2023) [facility]27[facility]2017 History of Past illness Narrative* Problem Noted Date Diagnosed Date Resolved Date Benign paroxysmal positional vertigo 11/14/2017 11/30/2021 Essential hypertension 11/30/201510/24 documented as of this encounter (statuses as of 08/31/2023) [facility]2017 History of Past illness Narrative* Problem Noted Date Diagnosed Date Resolved Date Benign paroxysmal positional vertigo 11/14/2017 11/30/2021 Essential hypertension 11/30/201510/24 documented as of this encounter (statuses as of 09/23/2023) [address]27-2017 History of Past illness Narrative* Problem Noted Date Diagnosed Date Resolved Date Benign paroxysmal positional vertigo 11/14/2017 11/30/2021 Essential hypertension 11/30/201510/24 documented as of this encounter (statuses as of 09/23/2023) [address]27-2017 History of Past illness Narrative* Problem Noted Date Diagnosed Date Resolved Date Benign paroxysmal positional vertigo 11/14/2017 11/30/2021 Essential hypertension 11/30/201510/24 documented as of this encounter (statuses as of 09/23/2023) [address]27-2017 History of Past illness Narrative* Problem Noted Date Diagnosed Date Resolved Date Benign paroxysmal positional vertigo 11/14/2017 11/30/2021 Essential hypertension 11/30/201510/24 documented as of this encounter (statuses as of 09/23/2023) [address]27-2017 History of Past illness Narrative* Problem Noted Date Diagnosed Date Resolved Date Benign paroxysmal positional vertigo 11/14/2017 11/30/2021 Essential hypertension 11/30/201510/24 documented as of this encounter (statuses as of 09/23/2023) [address]27-2017 History of Past illness Narrative* Problem Noted Date Diagnosed Date Resolved Date Benign paroxysmal positional vertigo 11/14/2017 11/30/2021 Essential hypertension 11/30/201510/24 documented as of this encounter (statuses as of 10/04/2023) [address]27-2017 History of Past illness Narrative* Problem Noted Date Diagnosed Date Resolved Date Benign paroxysmal positional vertigo 11/14/2017 11/30/2021 Essential hypertension 11/30/201510/24 documented as of this encounter (statuses as of 12/21/2023) [address]27-2017 History of Past illness Narrative* Problem Noted Date Diagnosed Date Resolved Date Benign paroxysmal positional vertigo 11/14/2017 11/30/2021 Essential hypertension 11/30/201510/24 documented as of this encounter (statuses as of 12/27/2023) [facility]-27-2017 History of Past illness Narrative* Problem Noted Date Diagnosed Date Resolved Date Benign paroxysmal positional vertigo 11/14/2017 11/30/2021 Essential hypertension 11/30/201510/24 documented as of this encounter (statuses as of 01/16/2024) [facility]-27-2017 History of Past illness Narrative* Problem Noted Date Diagnosed Date Resolved Date Benign paroxysmal positional vertigo 11/14/2017 11/30/2021 Essential hypertension 11/30/201510/24 documented as of this encounter (statuses as of 01/23/2024) [facility]27-2017 History of Past illness Narrative* Problem Noted Date Diagnosed Date Resolved Date Benign paroxysmal positional vertigo 11/14/2017 11/30/2021 Essential hypertension 11/30/201510/24 documented as of this encounter (statuses as of 01/28/2024) [facility]27-2017 History of Past illness Narrative* Problem Noted Date Diagnosed Date Resolved Date Benign paroxysmal positional vertigo 11/14/2017 11/30/2021 Essential hypertension 11/30/201510/24 documented as of this encounter (statuses as of 01/30/2024) [facility]2017 History of Past illness Narrative* Problem Noted Date Diagnosed Date Resolved Date Benign paroxysmal positional vertigo 11/14/2017 11/30/2021 Essential hypertension 11/30/201510/24 documented as of this encounter (statuses as of 02/05/2024) [facility]27-2017 History of Past illness Narrative* Problem Noted Date Diagnosed Date Resolved Date Benign paroxysmal positional vertigo 11/14/2017 11/30/2021 Essential hypertension 11/30/201510/24 documented as of this encounter (statuses as of 02/07/2024) [facility]27-2017 History of Past illness Narrative* Problem Noted Date Diagnosed Date Resolved Date Benign paroxysmal positional vertigo 11/14/2017 11/30/2021 Essential hypertension 11/30/201510/24 documented as of this encounter (statuses as of 02/22/2024) [facility]-2017 History of Past illness Narrative* Problem Noted Date Diagnosed Date Resolved Date Benign paroxysmal positional vertigo 11/14/2017 11/30/2021 Essential hypertension 11/30/201510/24 documented as of this encounter (statuses as of 03/06/2024) [facility]27-2017 History of Past illness Narrative* Problem Noted Date Diagnosed Date Resolved Date Benign paroxysmal positional vertigo 11/14/2017 11/30/2021 Essential hypertension 11/30/201510/24 documented as of this encounter (statuses as of 03/07/2024) [facility] note* Diagnosis Onset Date Resolution Status Personal history of colonic polyps acute Carotid artery stenosis acut e Essential hypertension acute Atherosclerosis of coronary artery of [place] heart without angina pectoris chronic Hyperlipidemia chronic Peripheral vascular occlusive disease [facility] Work Phone: evaluation note* Diagnosis Essential hypertension Unspecified essential hypertension documented in this encounter [facility] note* Diagnosis Peripheral vascular occlusive disease (HCC)- Primary Peripheral vascular disease, unspecified documented in this encounter [facility] note* Diagnosis Peripheral vascular occlusive disease (HCC) Peripheral vascular disease, unspecified documented in this encounter [facility] note* Diagnosis Essential hypertension Unspecified essential hypertension documented in this encounter [facility] note* Diagnosis Diabetes mellitus type 2 [...] arthropathy, multiple sites Coronary artery disease involving [place] heart, unspecified vessel or lesion type, unspecified whether angina present Fatigue, unspecified type documented in this encounter [facility] note* Diagnosis Encounter for screening mammogram for malignant neoplasm of breast Other screening mammogram documented in this encounter [facility] note* Diagnosis Abnormal mammogram- Primary Abnormal mammogram, unspecified documented in this encounter [facility] note* Diagnosis Acute pain of right shoulder- Primary documented in this encounter [facility] noteNo assessment information availableWOhio[facility] Work [facility]* Diagnosis Onset Date Resolution Status Carotid artery stenosis acut e [facility] Work Phone: Evaluation note* Diagnosis Injury of sternum, initial encounter- Primary Wrist injury, right, initial encounter [facility] Diagnosis Onset Date Resolution Status Carotid artery stenosis 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 driver vipul Atherosclerosis of coronary artery of [place] without angina pectoris chronic Carotid artery stenosis flatbed driver vipul Essential hypertension chron ic Hyperlipidemia chronic Peripheral vascular occlusive disease [facility] Work Phone: Evaluation note* Diagnosis Low TSH level- Primary Nonspecific abnormal results of thyroid function study Abnormal thyroid biopsy Abnormal thyroid blood test Nonspecific abnormal results of thyroid function study Borderline abnormal thyroid function test Nonspecific abnormal results of thyroid function study [facility] Diagnosis Acute cystitis with hematuria- Primary Acute cystitis [facility] Diagnosis Onset Date Resolution Status Atherosclerosis of coronary artery of [place] without angina pectoris chronic Carotid artery stenosis 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 driver vipul Essential hypertension chron ic Hyperlipidemia chronic Peripheral vascular occlusive disease [facility] Work Phone: Evaluation note* Diagnosis [...] stage 3a (HCC) [facility] Diagnosis Diabetes mellitus type 2 with peripheral artery disease Type II or unspecified type diabetes mellitus with peripheral circulatory disorders, not stated as uncontrolled [facility] Diagnosis Encounter for screening mammogram for malignant neoplasm of breast- Primary Other screening mammogram [facility]* Diagnosis 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) Type II or unspecified type diabetes mellitus with peripheral circulatory disorders, not stated as uncontrolled [facility] Diagnosis Peripheral vascular occlusive disease (HCC) Peripheral vascular disease, unspecified [facility]* Diagnosis Abnormal mammogram- Primary Abnormal mammogram, unspecified [facility] Diagnosis Dysuria- Primary Acute cystitis with [...] arthropathy, multiple sites [facility]* Diagnosis Onset Date Resolution Status Atherosclerosis of coronary artery of [place] without angina pectoris chronic Carotid artery stenosis flatbed driver vipul Essential hypertension chron ic Hyperlipidemia chronic Peripheral vascular occlusive disease chronic Carotid artery stenosis 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 driver vipul Peripheral vascular occlusive disease [facility] Work Phone: evaluation note* Diagnosis Onset Date Resolution Status Carotid artery stenosis 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 driver vipul Peripheral vascular occlusive disease [facility] Work Phone: Evaluation note* Diagnosis Encounter for screening mammogram for malignant neoplasm of breast Other screening mammogram [facility] Diagnosis Abnormal mammogram Abnormal mammogram, unspecified [facility] Diagnosis Abnormal mammogram Abnormal mammogram, unspecified [facility] Diagnosis Abnormal thyroid function test Nonspecific abnormal results of thyroid function study [facility]* Diagnosis Peripheral vascular occlusive disease (HCC) Peripheral vascular disease, unspecified [facility] Diagnosis Multiple thyroid nodules Nontoxic multinodular goiter [facility] Diagnosis Chronic midline low back pain without sciatica [facility] Diagnosis Chronic bilateral low back pain with bilateral sciatica- Primary [facility] Peripheral vascular occlusive disease (HCC) Peripheral vascular disease, unspecified [facility] Diagnosis Chronic bilateral low back pain with bilateral sciatica- Primary [facility] Diagnosis Onset Date Resolution Status Systolic murmur acute Atherosclerosis of coronary artery of [place] without angina pectoris chronic Essential hypertension chron ic Hyperlipidemia chronic [facility] Work Phone: Evaluation note* Diagnosis Chronic midline low back pain without sciatica- Primary [facility]* Diagnosis Multiple thyroid nodules- Primary Nontoxic multinodular goiter [facility]* Diagnosis Chronic bilateral low back pain with bilateral sciatica- Primary [facility]* Diagnosis Chronic bilateral low back pain with bilateral sciatica- Primary [facility]* Diagnosis Multiple thyroid nodules- Primary Nontoxic [...] Fatigue, unspecified type [facility]* Diagnosis Encounter for screening mammogram for malignant neoplasm of breast Other screening mammogram [facility] Diagnosis Chronic midline low back pain [...] Nontoxic multinodular goiter [facility]* Diagnosis Chronic midline low back pain without sciatica [facility]* Diagnosis Injury of sternum, initial encounter Wrist injury, right, initial encounter [facility]* Diagnosis Acute pain of right shoulder [facility]* Diagnosis Diabetes mellitus type 2 with [...] arthropathy, multiple sites [facility] Diagnosis Essential hypertension Unspecified essential hypertension [facility] Diagnosis Hospital discharge follow-up- Primary Other follow-up examination Diabetic foot ulcer associated with type 2 diabetes mellitus, unspecified laterality, unspecified part of foot, unspecified ulcer stage (HCC) Abnormality of gait Falling episodes Lack of coordination [facility]* Diagnosis 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)- Primary Type II or unspecified type diabetes mellitus with peripheral circulatory disorders, not stated as uncontrolled Hyperglycemia Other abnormal glucose [facility] Diagnostic Procedure Only (Routine) - Closed Specialty Diagnoses / Procedures Referred By Viraj banegas Referred To Contact [facility] Diagnoses Encounter for screening mammogram for malignant neoplasm of breast Procedures ALEJANDRO SCREENING SCREENING MAMMOGRAPHY BI 2-VIEW BREAST INC CAD Rishi Vasquez DO [id number] [place] [address] [facility] [address] [place] [phone] Referral ID Status Reason Start Date Expiration Date V isits Requested Visits Authorized [id number] Closed Auto-Generate d Referral 12/05/2021 01/04/2023 1 1 [facility] for referral (narrative)* Diagnostic Procedure Only (Routine) - Authorized Specialty Diagnoses / Procedures Referred By Viraj banegas Referred To Contact [facility] Diagnoses Abnormal mammogram Procedures US BREAST LTD RT US BREAST UNI REAL TIME WITH IMAGE LIMITED Dillon Watts APRN.MARKETING RECRUITER [address] [place] [address] [facility] [address] [place] [address] Referral ID Status Reason Start Date Expiration Date Visits Requested Visits Authorized [id number] Authorized Auto-Generat ed Referral 06/05/2022 07/05/2023 1 1 * Diagnostic Procedure Only (Routine) - Authorized Specialty Diagnoses / Procedures Referred By Contac t Referred To Contact [facility] Diagnoses Abnormal mammogram Procedures ALEJANDRO DIAGNOSTIC RT DIAGNOSTIC MAMMOGRAPHY COMPUTER-AIDED DETCJ [facility] Dillon Watts APRN.MARKETING RECRUITER [address] [place] [address] [facility] [address] [place] [address] Referral ID Status Reason Start Date Expiration Date Visits Requested Visits Authorized [id number] Authorized Auto-Generat ed Referral 06/05/2022 07/05/2023 1 1 [facility] for referral (narrative)* Diagnostic Procedure Only (Urgent) - Closed Specialty Diagnoses / Procedures Referred By Contac t Referred To Contact XR IMAGING Diagnoses Acute pain of right shoulder Procedures XR SHOULDER GENERAL 3V OR MORE AP/TRUE AP/OTHER RIGHT RADEX SHOULDER COMPLETE MINIMUM 2 VIEWS Kena Sims APRN.MARKETING RECRUITER [address] [place] [address] [facility] Referral ID Status Reason Start Date Expiration Date V isits Requested Visits Authorized [id number] Closed Auto-Generate d Referral 06/17/2022 07/17/2023 1 1 [facility] for referral (narrative)* Diagnostic Procedure Only (Urgent) - Closed Specialty Diagnoses / Procedures Referred By Contac t Referred To Contact XR IMAGING Diagnoses Wrist injury, right, initial encounter Procedures XR WRIST INJURY 4V PA/LAT/OBL/SCAPH RIGHT RADEX WRIST COMPLETE MINIMUM 3 VIEWS Camille Mitchell, PA-C [address] [place] [address] [facility] Referral ID Status Reason Start Date Expiration Date V isits Requested Visits Authorized [id number] Closed Auto-Generate d Referral 08/15/2022 09/14/2023 1 1 * Diagnostic Procedure Only (Urgent) - Closed Specialty Diagnoses / Procedures Referred By Contac t Referred To Contact XR IMAGING Diagnoses Injury of sternum, initial encounter Procedures XR STERNUM 2V BARAJAS/LAT RADEX STERNUM MINIMUM 2 VIEWS Camille Mitchell PA-C [address] [place] [address] X[facility] Imaging Referral ID Status Reason Start Date Expiration Date V isits Requested Visits Authorized [id number] Closed Auto-Generate d Referral 08/15/2022 09/14/2023 1 1 [facility] for referral (narrative)* Outpatient Procedure (Routine) - Authorized Specialty Diagnoses / Procedures Referred By Contac t Referred To Contact [facility] Diagnoses Carotid atherosclerosis, bilateral Procedures US CAROTID ARTERIES SADIE [facility] LAB DUPLEX SCAN EXTRACRANIAL ART COMPL BI STUDY Rishi Vasquez DO [address] [place] [address] [facility] [place] [address] [place] [address] Referral ID Status Reason Start Date Expiration Date Visits Requested Visits Authorized [id number] Authorized Auto-Generat ed Referral 12/05/2022 12/05/2023 1 1 [facility] for referral (narrative)* Diagnostic Procedure Only (Routine) - Pending Review Specialty Diagnoses / Procedures Referred By Contac t Referred To Contact [facility] Diagnoses Encounter for screening mammogram for malignant neoplasm of breast Procedures ALEJANDRO SCREENING SCREENING MAMMOGRAPHY BI 2-VIEW BREAST INC Clary Huerta, [employer]OL[employer] MECHANIC.MARKETING RECRUITER [address] [place] [address] [facility] [address] [place] [address] Referral ID Status Reason Start Date Expiration Date Visits Requested Visits Authorized [id number] Pending Review Auto-Generat ed Referral 02/07/2023 03/06/2024 1 1 [facility] for referral (narrative)* Diagnostic Procedure Only (Routine) - Authorized Specialty Diagnoses / Procedures Referred By Contac t Referred To Contact [facility] Diagnoses Abnormal mammogram Procedures US BREAST LTD RIGHT US BREAST UNI REAL TIME WITH IMAGE LIMITED Danyelle Tripp PA-C [address] [place] [address] [facility] [address] [place] [address] Referral ID Status Reason Start Date Expiration Date Visits Requested Visits Authorized [id number] Authorized Auto-Generat ed Referral 05/29/2023 06/27/2024 1 1 * Diagnostic Procedure Only (Routine) - Authorized Specialty Diagnoses / Procedures Referred By Leeannaac t Referred To Contact [facility] Diagnoses Abnormal mammogram Procedures ALEJANDRO DIAGNOSTIC RIGHT DIAGNOSTIC MAMMOGRAPHY COMPUTER-AIDED DETCJ UNI Danyelle Tripp PA-C [address] [place] [address] [facility] [address] [place] [address] Referral ID Status Reason Start Date Expiration Date Visits Requested Visits Authorized [id number] Authorized Auto-Generat ed Referral 05/29/2023 06/27/2024 1 1 [facility] for referral (narrative)* Diagnostic Procedure Only (Routine) - Closed Specialty Diagnoses / Procedures Referred By Contac t Referred To Contact [facility] Diagnoses Encounter for screening mammogram for malignant neoplasm of breast Procedures ALEJANDRO SCREENING SCREENING MAMMOGRAPHY BI 2-VIEW BREAST INC Clary Huerta APRN.CNP [address] [place] [address] [facility] [address] [place] [address] Referral ID Status Reason Start Date Expiration Date V isits Requested Visits Authorized [id number] Closed Auto-Generate d Referral 02/07/2023 03/06/2024 1 1 [facility] for referral (narrative)* Diagnostic Procedure Only (Routine) - Closed Specialty Diagnoses / Procedures Referred By Contac t Referred To Contact [facility] Diagnoses Abnormal mammogram Procedures US BREAST LTD RIGHT US BREAST UNI REAL TIME WITH IMAGE LIMITED Danyelle Tripp PA-C [address] [place] [address] [facility] [address] [place] [address] Referral ID Status Reason Start Date Expiration Date V isits Requested Visits Authorized [id number] Closed Auto-Generate d Referral 05/29/2023 06/27/2024 1 1 [facility] for referral (narrative)* Diagnostic Procedure Only (Routine) - Closed Specialty Diagnoses / Procedures Referred By Contac t Referred To Contact [facility] Diagnoses Abnormal thyroid function test Procedures NM THY UPTAKE AND SCAN THYROID UPTAKE W/BLOOD FLOW SNGLE/MULT JAMARI Rishi Arnold DO [address] [place] [address] [facility] [address] [place] [address] Referral ID Status Reason Start Date Expiration Date V isits Requested Visits Authorized [id number] Closed Auto-Generate d Referral 12/15/2022 01/14/2024 1 1 [facility] for referral (narrative)* Diagnostic Procedure Only (Routine) - Closed Specialty Diagnoses / Procedures Referred By Contac t Referred To Contact US IMAGING Diagnoses Abnormal thyroid function test Procedures US THYROID/PARATHYROID US SOFT TISSUE HEAD & NECK REAL TIME IMGE DOCM Rishi Vasquez, DO [address] [place] [address] [place] [address] Referral ID Status Reason Start Date Expiration Date V isits Requested Visits Authorized [id number] Closed Auto-Generate d Referral 12/15/2022 01/14/2024 1 1 [facility] for referral (narrative)* Diagnostic Procedure Only (Routine) - Closed Specialty Diagnoses / Procedures Referred By Contac t Referred To Contact XR IMAGING Diagnoses Chronic midline low back pain without sciatica Procedures XR LUMBAR GENERAL 3V AP/LAT/L5-S1 RADEX SPINE LUMBOSACRAL 2/3 VIEWS Rishi Vasquez DO [address] [place] [address] [place] [address] Referral ID Status Reason Start Date Expiration Date V isits Requested Visits Authorized [id number] Closed Auto-Generate d Referral 12/05/2023 01/03/2025 1 1 [facility] for referral (narrative)* Diagnostic Procedure Only (Urgent) - Closed Specialty Diagnoses / Procedures Referred By Contac t Referred To Contact XR IMAGING Diagnoses Wrist injury, right, initial encounter Procedures XR WRIST INJURY 4V PA/LAT/OBL/SCAPH RIGHT RADEX WRIST COMPLETE MINIMUM 3 VIEWS Camille Mitchell PA-C [address] [place] [address] [place] [address] Referral ID Status Reason Start Date Expiration Date V isits Requested Visits Authorized [id number] Closed Auto-Generate d Referral 08/15/2022 09/14/2023 1 1 * Diagnostic Procedure Only (Urgent) - Closed Specialty Diagnoses / Procedures Referred By Contac t Referred To Contact XR IMAGING Diagnoses Injury of sternum, initial encounter Procedures XR STERNUM 2V BARAJAS/LAT RADEX STERNUM MINIMUM 2 VIEWS Camille Mitchell PA-C [address] [place] [address] [place] [address] Referral ID Status Reason Start Date Expiration Date V isits Requested Visits Authorized [id number] Closed Auto-Generate d Referral 08/15/2022 09/14/2023 1 1 [facility] for referral (narrative)* Diagnostic Procedure Only (Urgent) - Closed Specialty Diagnoses / Procedures Referred By Contcynthia t Referred To Contact XR IMAGING Diagnoses Acute pain of right shoulder Procedures XR SHOULDER GENERAL 3V OR MORE AP/TRUE AP/OTHER RIGHT RADEX SHOULDER COMPLETE MINIMUM 2 VIEWS Kena Schrader APRN.CNP [address] [place] [address] [place] [address] Referral ID Status Reason Start Date Expiration Date V isits Requested Visits Authorized [id number] Closed Auto-Generate d Referral 06/17/2022 07/17/2023 1 1 [facility] for referral (narrative)* Diagnostic Procedure Only (Routine) - Authorized Specialty Diagnoses / Procedures Referred By Viraj banegas Referred To Contact [facility] Diagnoses Encounter for screening mammogram for malignant neoplasm of breast Procedures ALEJANDRO SCREENING W BEN SCREENING DIGITAL BREAST TOMOSYNTHESIS BI SCREENING MAMMOGRAPHY BI 2-VIEW BREAST INC Rishi Reyes DO [address] [place] [address] [facility] [address] [place] [address] Referral ID Status Reason Start Date Expiration Date Visits Requested Visits Authorized [id number] Authorized Auto-Generat ed Referral 12/05/2024 01/04/2026 1 1 [facility] for referral (narrative)No reason for [facility] Reason for visit Narrative* Diagnostic Procedure Only (Routine) - Closed Specialty Diagnoses / Procedures Referred By Contac t Referred To Contact [facility] Diagnoses Encounter for screening mammogram for malignant neoplasm of breast Procedures ALEJANDRO SCREENING SCREENING MAMMOGRAPHY BI 2-VIEW BREAST INC CAD Rishi Vasquez L, DO [address] [place] [address] [facility] [address] [place] [address] Referral ID Status Reason Start Date Expiration Date V isits Requested Visits Authorized [id number] Closed Auto-Generate d Referral 12/05/2021 01/04/2023 1 1 [facility] for visit Narrative* Diagnostic Procedure Only (Routine) - Closed Specialty Diagnoses / Procedures Referred By Contac t Referred To Contact [facility] Diagnoses Encounter for screening mammogram for malignant neoplasm of breast Procedures ALEJANDRO SCREENING SCREENING MAMMOGRAPHY BI 2-VIEW BREAST INC CAD Clary Andres, [employer] MECHANIC.MARKETING RECRUITER [address] [place] [address] [facility] [address] [place] [phone] Referral ID Status Reason Start Date Expiration Date V isits Requested Visits Authorized [id number] Closed Auto-Generate d Referral 02/07/2023 03/06/2024 1 1 [facility] for visit Narrative* Diagnostic Procedure Only (Routine) - Closed Specialty Diagnoses / Procedures Referred By Contac t Referred To Contact [facility] Diagnoses Abnormal mammogram Procedures ALEJANDRO DIAGNOSTIC RIGHT DIAGNOSTIC MAMMOGRAPHY COMPUTER-AIDED DETCJ UNI Danyelle Tripp PA-C [address] [place] [address] [facility] [address] [place] [phone] Referral ID Status Reason Start Date Expiration Date V isits Requested Visits Authorized [id number] Closed Auto-Generate d Referral 05/29/2023 06/27/2024 1 1 [facility] for visit Narrative* Diagnostic Procedure Only (Routine) - Closed Specialty Diagnoses / Procedures Referred By Leeannaac t Referred To Contact [facility] Diagnoses Abnormal thyroid function test Procedures NM THY UPTAKE AND SCAN THYROID UPTAKE W/BLOOD FLOW SNGLE/MULT JAMARI NATALIA Rishi Vasquez L, DO [address] [place] [address] [facility] [address] [place] [address] Referral ID Status Reason Start Date Expiration Date V isits Requested Visits Authorized [id number] Closed Auto-Generate d Referral 12/15/2022 01/14/2024 1 1 [facility] for visit Narrative* Diagnostic Procedure Only (Routine) - Closed Specialty Diagnoses / Procedures Referred By Contac t Referred To Contact [facility] Diagnoses Encounter for screening mammogram for malignant neoplasm of breast Procedures ALEJANDRO SCREENING W BEN SCREENING DIGITAL BREAST TOMOSYNTHESIS BI SCREENING MAMMOGRAPHY BI 2-VIEW BREAST INC CAD iRshi Vasquez L, DO [address] [place] [address] [facility] [address] [place] [address] Referral ID Status Reason Start Date Expiration Date V isits Requested Visits Authorized [id number] Closed Auto-Generate d Referral 12/05/2023 01/03/2025 1 1 [facility] for visit Narrative* Diagnostic Procedure Only (Routine) - Closed Specialty Diagnoses / Procedures Referred By Contac t Referred To Contact XR IMAGING Diagnoses Chronic midline low back pain without sciatica Procedures XR LUMBAR GENERAL 3V AP/LAT/L5-S1 RADEX SPINE LUMBOSACRAL 2/3 VIEWS Rishi Vasquez, DO [address] [place] [address] [place] [address] Referral ID Status Reason Start Date Expiration Date V isits Requested Visits Authorized [id number] Closed Auto-Generate d Referral 12/05/2023 01/03/2025 1 1 [facility] for visit Narrative* Diagnostic Procedure Only (Urgent) - Closed Specialty Diagnoses / Procedures Referred By Contac t Referred To Contact XR IMAGING Diagnoses Wrist injury, right, initial encounter Procedures XR WRIST INJURY 4V PA/LAT/OBL/SCAPH RIGHT RADEX WRIST COMPLETE MINIMUM 3 VIEWS Camille Mitchell, PA-C [address] [place] [address] [place] [address] Referral ID Status Reason Start Date Expiration Date V isits Requested Visits Authorized [id number] Closed Auto-Generate d Referral 08/15/2022 09/14/2023 1 1 [facility] Diagnostic Procedure Only (Urgent) - Closed Specialty Diagnoses / Procedures Referred By Viraj t Referred To Contact XR IMAGING Diagnoses Acute pain of right shoulder Procedures XR SHOULDER GENERAL 3V OR MORE AP/TRUE AP/OTHER RIGHT RADEX SHOULDER COMPLETE MINIMUM 2 VIEWS Kena Schrader, CUPOL[employer] MECHANIC.MARKETING RECRUITER [address] [place] [address] [place] [address] Referral ID Status Reason Start Date Expiration Date V isits Requested Visits Authorized [id number] Closed Auto-Generate d Referral 06/17/2022 07/17/2023 1 1 [facility] Chief Complaint and Reason for Visit Chief Complaint 2020 CARDIAC REHAB P HASE III MAINTENANCE-SELF PAY PHASE III MAINTENANCE SELF-PAY COLONOSCOPY PHASE III MAINTENANCE SELF-PAY 6 M FU / R/S FROM 2-7 MMM PHASE III MAINTENANCE SELF-PAY Reason for Visit Personal history of colonic polyps Carotid artery stenosis Essential hypertension Atherosclerosis of coronary artery of [place] heart without angina pectoris Hyperlipidemia Peripheral vascular occlusive disease Chief Complaint PHASE III MA INTENANCE SELF-PAY COLONOSCOPY PHASE III MAINTENANCE SELF-PAY 6 M FU / R/S FROM 2-7 MMM PHASE III MAINTENANCE SELF-PAY PHASE III MAINTENANCE SELF-PAY Reason for Visit Personal history of colonic polyps Carotid artery stenosis Essential hypertension Atherosclerosis of coronary artery of [place] heart without angina pectoris Hyperlipidemia Peripheral vascular occlusive disease Chief Complaint COLONOSCOPY PHASE III MAINTENANCE SELF-PAY 6 M FU / R/S FROM 2-7 MMM PHASE III MAINTENANCE SELF-PAY PHASE III MAINTENANCE SELF-PAY PHASE III MAINTENANCE SELF-PAY Reason for Visit Personal history of colonic polyps Carotid artery stenosis Essential hypertension Atherosclerosis of coronary artery of [place] heart without angina pectoris Hyperlipidemia Peripheral vascular [...] steno sis Atherosclerosis of coronary artery of [place] heart without angina pectoris Carotid artery stenosis Essential hypertension Hyperlipidemia Peripheral vascular occlusive disease Chief Complaint PHASE III ALFONSO INTENANCE SELF-PAY CAROTID STENOSIS BILAT CAROTID U/S 06/22 PHASE III MAINTENANCE SELF-PAY 6 M FU PHASE III MAINTENANCE SELF-PAY PHASE III MAINTENANCE SELF-PAY Reason for Visit Carotid artery steno sis Atherosclerosis of coronary artery of [place] heart without angina pectoris Carotid artery stenosis Essential hypertension Hyperlipidemia Peripheral vascular occlusive disease Chief Complaint CAROTID STENOSIS SADIE AT CAROTID U/S 06/22 PHASE III MAINTENANCE SELF-PAY 6 M FU PHASE III MAINTENANCE SELF-PAY PHASE III MAINTENANCE SELF-PAY PHASE III MAINTENANCE SELF-PAY Reason for Visit Carotid artery steno sis Atherosclerosis of coronary artery of [place] heart without angina pectoris Carotid artery stenosis Essential hypertension Hyperlipidemia Peripheral vascular occlusive disease Chief Complaint PHASE III ALFONSO INTENANCE SELF-PAY 6 M FU PHASE III MAINTENANCE SELF-PAY PHASE III MAINTENANCE SELF-PAY PHASE III MAINTENANCE SELF-PAY PVD PHASE III MAINTENANCE SELF-PAY Reason for Visit Atherosclerosis of c oronary artery of [place] heart without angina pectoris Carotid artery stenosis Essential hypertension Hyperlipidemia Peripheral vascular occlusive disease Chief Complaint 6 M FU PHASE III MAINTENANCE SELF-PAY PHASE III MAINTENANCE SELF-PAY PHASE III MAINTENANCE SELF-PAY PVD PHASE III MAINTENANCE SELF-PAY Reason for Visit Atherosclerosis of c oronary artery of [place] heart without angina pectoris Carotid artery stenosis [...] Visit Atherosclerosis of c oronary artery of [place] heart without angina pectoris Carotid artery stenosis Essential hypertension Hyperlipidemia Peripheral vascular occlusive disease Chief Complaint 2022 PH III Maintena nce Self-Pay 2022 PH III Maintenance Self-Pay 1 Y FU/Prev PFM Pt 2022 PH III Maintenance Self-Pay CAROTID STENOSIS 2022 PH III Maintenance Self-Pay Reason for Visit Atherosclerosis of c oronary artery of [place] heart without angina pectoris Carotid artery stenosis Essential hypertension Hyperlipidemia Peripheral vascular occlusive disease Chief Complaint 2022 PH III Maintena nce Self-Pay 1 Y FU/Prev PFM Pt 2022 PH III Maintenance Self-Pay CAROTID STENOSIS 2022 PH III Maintenance Self-Pay CAROTID YEARLY CHECK 2022 PH III Maintenance Self-Pay Reason for Visit Atherosclerosis of c oronary artery of [place] heart without angina pectoris Carotid artery stenosis [...] Visit Atherosclerosis of c oronary artery of [place] heart without angina pectoris Carotid artery stenosis [...] Systolic murmur Atherosclerosis of coronary artery of [place] heart without angina pectoris Essential hypertension Hyperlipidemia Chief Complaint 2023 PH3 MAINTENANCE SELF PAY 2023 PH3 MAINTENANCE SELF PAY 9 M FU/PREV PFM 2023 PH3 MAINTENANCE SELF PAY Cardiac murmur, unspecified 2023 PH3 MAINTENANCE SELF PAY Reason for Visit Systolic murmur Atherosclerosis of coronary artery of [place] heart without angina pectoris Essential hypertension Hyperlipidemia [...] foot March 07 025 4:25pm Atherosclerosis of [place] riaz of both lower extremities with [...] left foot March 11 5:26pm Atherosclerosis of [place] of both lower extremities with [...] April 03, 2025 10:32 am Atherosclerosis of [place] arteries of ri ght leg wi April [...] foot March 07 025 4:25pm Atherosclerosis of [place] of both lower extremities with [...] foot March 11 025 5:26pm Atherosclerosis of [place] of both lower extremities with [...] April 03, 2025 10:32 am Atherosclerosis of [place] arteries of ri ght leg [place] April 15, 2025 10:51am Atherosclerosis of [place] arteries of ri ght leg wi April [...] April 03, 2025 10:32 am Atherosclerosis of [place] arteries of ri ght leg [place] April 15, 2025 10:51am Atherosclerosis of [place] arteries of ri ght leg [place] April [...] April 03, 2025 10:32 am Atherosclerosis of [place] arteries of ri ght leg [place] April 15, 2025 10:51am Atherosclerosis of [place] arteries of ri t leg wi April [...] April 03, 2025 10:32 am Atherosclerosis of [place] arteries of ri ght leg [place] April 15, 2025 10:51am Atherosclerosis of [place] arteries of ri ght leg wi April [...] March 07, 2 025 4:25pm Atherosclerosis of [place] of both lower extremities with [...] foot March 11, 025 5:26pm Atherosclerosis of [place] of both lower extremities with [...] 2025 9:17am Atherosclerosis of coronary artery of [place] heart without angina pectoris May 07, 2025 [...] April 03, 2025 10:32 am Atherosclerosis of [place] arteries of ri ght leg [place] April 15, 2025 10:51am Atherosclerosis of [place] arteries of ri ght leg [place] April [...] April 03, 2025 10:32 am Atherosclerosis of [place] arteries of ri ght leg [place] April 15, 2025 10:51am Atherosclerosis of [place] arteries of ri ght leg wi April [...] Yes January 18, 2022 10:55am Power of Campaign Marketing Specialist Yes January 18 10:55am Documents on File Type Date Recorded Patient Cdl Program Coordinator Expl anation Advance Directive(s) Advance Directive(s) 10/25/2016 10:12 AM Advance Directive(s) 10/25/2016 10:01 AM Advance Directive(s) 10/11/2016 4:06 PM Documents on File Type Date Recorded Patient Cdl Program Coordinator Expl anation Advance Directive(s) Advance Directive(s) 10/25/2016 10:12 AM Advance Directive(s) 10/25/2016 10:01 AM Advance Directive(s) 10/11/2016 4:06 PM Documents on File Type Date Recorded Patient Cdl Program Coordinator Expl anation Advance Directive(s) 10/25/2016 10:01 AM Documents on File Type Date Recorded Patient Cdl Program Coordinator Expl anation Advance Directive(s) 10/25/2016 10:01 AM Advance Directive Response Recorded Date/ Time Advance Directives Yes October 12:55pm Living Will Yes January 18, 2022 9:55am Power of Campaign Marketing Specialist Yes January 18 9:55am Advance Directive Response Recorded Date/ Time Advance Directives Yes March 26th, 2 024 3:27pm Living Will Yes February 12, 2024 3:27pm Power of Campaign Marketing Specialist Yes February 11 3:27pm Advance Directive Response Recorded Date/ Time Living Will Yes October 19 1:13am Do you have a Healthcare Power of Campaign Marketing Specialist? Yes October 19, 2024 1:13am Advance Directives Yes April 02 9:13am Advance Directive Response Recorded Date/ Time Living Will Yes October 19 1:13am Do you have a Healthcare Power of Campaign Marketing Specialist? Yes October 19, 2024 1:13am Living Will No March 07, 2025 1:48pm Do you have a Healthcare Power of Campaign Marketing Specialist? No March 07, 2025 1:48pm Advance Directives Yes April 02 9:13am Advance Directive Response Recorded Date/ Time Do you have a Healthcare Pow er of Campaign Marketing Specialist? Yes March 12, 2025 11:42am Name of Medical Power of Campaign Marketing Specialist Julianne hawkins, sister March 12, 2025 11:42am Living Will No March 07, 2025 5:48pm Do you have a Healthcare Pow er of Campaign Marketing Specialist? No March 07, 2025 5:48pm Advance Directives Yes April 02 9:13am Advance Directive Response Recorded Date/ Time Do you have a Healthcare Pow er of Campaign Marketing Specialist? Yes March 12, 2025 11:42am Name of Medical Power of Campaign Marketing Specialist Julianne Louise n, sister March 12, 2025 11:42am Advance Directives on File Yes March 202024 11:26am Living Will Yes April 15, 2025 1 1:26am Do you have a Healthcare Pow er of Campaign Marketing Specialist? Yes April 15, 2025 11:26am Name of Medical Power of Campaign Marketing Specialist Julianne Louise n April 15, 2025 11:26am Advance Directives Yes April 15 11:26am Living Will No March 07, 2025 5:48pm Do you have a Healthcare Pow er of Campaign Marketing Specialist? No March 07, 2025 5:48pm Advance Directive Response Recorded Date/ Time Do you have a Healthcare Pow er of Campaign Marketing Specialist? Yes March 12, 2025 11:42am Name of Medical Power of Campaign Marketing Specialist Julianne hawkins, March 12, 2025 11:42am Advance Directives on File Yes March 202024 11:26am Living Will Yes April 15, 2025 1 1:26am Do you have a Healthcare Pow er of Campaign Marketing Specialist? Yes April 15, 2025 11:26am Name of Medical Power of Campaign Marketing Specialist Julianne hawkins April 15, 2025 11:26am Advance Directives Yes April 15 11:26am Living Will Yes April 02, 2024 9 :13am Do you have a Healthcare Pow er of Campaign Marketing Specialist? Yes April 02, 2024 9:13am Living Will No March 07, 2025 5:48pm Do you have a Healthcare Pow er of Campaign Marketing Specialist? No March 07, 2025 5:48pm Reason for Referral Specialty Diagnoses / Procedures Referred By Contac t Referred To Contact [facility] Diagnoses Chronic midline low back pain without sciatica Procedures CONSULT TO PHYSICAL THERAPY PHYSICAL THERAPY EVALUATION HIGH COMPLEX 45 MINS Rishi Vasquez, DO [address] [place] [address] [facility] [address] [place] [address] Referral ID Status Reason Start Date Expiration Date Visits Requested Visits Authorized [id number] Authorized Auto-Generat ed Referral 11/19/2023 11/18/2024 99 99 Specialty Diagnoses / Procedures Referred By Contac t Referred To Contact General Surgery Diagnoses Multiple thyroid nodules Procedures CONSULT TO GENERAL SURGERY OFFICE/OUTPATIENT NEW [facility] MDM 60 MINUTES Rishi Vasquez, DO [address] [place] [address] Referral ID Status Reason Start Date Expiration Date Visits Requested Visits Authorized [id number] Authorized PCP Requested Referral 01/10/2024 01/09/2025 1 1 Specialty Diagnoses / Procedures Referred By Contac t Referred To Contact Pain Management Diagnoses Chronic midline low back pain without sciatica DDD (degenerative disc disease), lumbar Procedures CONSULT TO PAIN MGT OFFICE/OUTPATIENT NEW HIGH MDM 60 MINUTES Rishi Vasquez, DO [address] [place] [address] Referral ID Status Reason Start Date Expiration Date Visits Requested Visits Authorized [id number] Authorized PCP Requested Referral 06/04/2024 06/04/2025 1 [...] or prosecute any alcohol or drug abuse patient.[facility] the event this information is protected by the Federal Confidentiality of Alcohol and Drug Abuse Patient Records regulations: The Federal rules restrict any use of the information to criminally investigate or prosecute any alcohol or drug abuse patient.[facility] the event this information is protected by the Federal Confidentiality of Alcohol and Drug Abuse Patient Records regulations: The Federal rules restrict any use of the information to criminally investigate or prosecute any alcohol or drug abuse patient.[facility] the event this information is protected by the Federal Confidentiality of Alcohol and Drug Abuse Patient Records regulations: The Federal rules restrict any use of the information to criminally investigate or prosecute any alcohol or drug abuse patient.[facility] the event this information is protected by the Federal Confidentiality of Alcohol and Drug Abuse Patient Records regulations: The Federal rules restrict any use of the information to criminally investigate or prosecute any alcohol or drug abuse patient.[facility] the event this information is protected by the Federal Confidentiality of Alcohol and Drug Abuse Patient Records regulations: The Federal rules restrict any use of the information to criminally investigate or prosecute any alcohol or drug abuse patient.[facility] the event this information is protected by the Federal Confidentiality of Alcohol and Drug Abuse Patient Records regulations: The Federal rules restrict any use of the information to criminally investigate or prosecute any alcohol or drug abuse patient.[facility] the event this information is protected by the Federal Confidentiality of Alcohol and Drug Abuse Patient Records regulations: The Federal rules restrict any use of the information to criminally investigate or prosecute any alcohol or drug abuse patient.[facility] the event this information is protected by the Federal Confidentiality of Alcohol and Drug Abuse Patient Records regulations: The Federal rules restrict any use of the information to criminally investigate or prosecute any alcohol or drug abuse patient.[facility] the event this information is protected by the Federal Confidentiality of Alcohol and Drug Abuse Patient Records regulations: The Federal rules restrict any use of the information to criminally investigate or prosecute any alcohol or drug abuse patient.[facility] the event this information is protected by the Federal Confidentiality of Alcohol and Drug Abuse Patient Records regulations: The Federal rules restrict any use of the information to criminally investigate or prosecute any alcohol or drug abuse patient.[facility] the event this information is protected by the Federal Confidentiality of Alcohol and Drug Abuse Patient Records regulations: The Federal rules restrict any use of the information to criminally investigate or prosecute any alcohol or drug abuse patient.[facility] the event this information is protected by the Federal Confidentiality of Alcohol and Drug Abuse Patient Records regulations: The Federal rules restrict any use of the information to criminally investigate or prosecute any alcohol or drug abuse patient.[facility] the event this information is protected by the Federal Confidentiality of Alcohol and Drug Abuse Patient Records regulations: The Federal rules restrict any use of the information to criminally investigate or prosecute any alcohol or drug abuse patient.[facility] the event this information is protected by the Federal Confidentiality of Alcohol and Drug Abuse Patient Records regulations: The Federal rules restrict any use of the information to criminally investigate or prosecute any alcohol or drug abuse patient.[facility] the event this information is protected by the Federal Confidentiality of Alcohol and Drug Abuse Patient Records regulations: The Federal rules restrict any use of the information to criminally investigate or prosecute any alcohol or drug abuse patient.[facility] the event this information is protected by the Federal Confidentiality of Alcohol and Drug Abuse Patient Records regulations: The Federal rules restrict any use of the information to criminally investigate or prosecute any alcohol or drug abuse patient.[facility] the event this information is protected by the Federal Confidentiality of Alcohol and Drug Abuse Patient Records regulations: The Federal rules restrict any use of the information to criminally investigate or prosecute any alcohol or drug abuse patient.[facility] the event this information is protected by the Federal Confidentiality of Alcohol and Drug Abuse Patient Records regulations: The Federal rules restrict any use of the information to criminally investigate or prosecute any alcohol or drug abuse patient.[facility] the event this information is protected by the Federal Confidentiality of Alcohol and Drug Abuse Patient Records regulations: The Federal rules restrict any use of the information to criminally investigate or prosecute any alcohol or drug abuse patient.[facility] the event this information is protected by the Federal Confidentiality of Alcohol and Drug Abuse Patient Records regulations: The Federal rules restrict any use of the information to criminally investigate or prosecute any alcohol or drug abuse patient.[facility] the event this information is protected by the Federal Confidentiality of Alcohol and Drug Abuse Patient Records regulations: The Federal rules restrict any use of the information to criminally investigate or prosecute any alcohol or drug abuse patient.[facility] the event this information is protected by the Federal Confidentiality of Alcohol and Drug Abuse Patient Records regulations: The Federal rules restrict any use of the information to criminally investigate or prosecute any alcohol or drug abuse patient.[facility] the event this information is protected by the Federal Confidentiality of Alcohol and Drug Abuse Patient Records regulations: The Federal rules restrict any use of the information to criminally investigate or prosecute any alcohol or drug abuse patient.[facility] the event this information is protected by the Federal Confidentiality of Alcohol and Drug Abuse Patient Records regulations: The Federal rules restrict any use of the information to criminally investigate or prosecute any alcohol or drug abuse patient.[facility]In the event this information is protected by the Federal Confidentiality of Alcohol and Drug Abuse Patient Records regulations: The Federal rules restrict any use of the information to criminally investigate or prosecute any alcohol or drug abuse patient.[facility]In the event this information is protected by the Federal Confidentiality of Alcohol and Drug Abuse Patient Records regulations: The Federal rules restrict any use of the information to criminally investigate or prosecute any alcohol or drug abuse patient.[facility] the event this information is protected by the Federal Confidentiality of Alcohol and Drug Abuse Patient Records regulations: The Federal rules restrict any use of the information to criminally investigate or prosecute any alcohol or drug abuse patient.[facility]In the event this information is protected by the Federal Confidentiality of Alcohol and Drug Abuse Patient Records regulations: The Federal rules restrict any use of the information to criminally investigate or prosecute any alcohol or drug abuse patient.[facility] the event this information is protected by the Federal Confidentiality of Alcohol and Drug Abuse Patient Records regulations: The Federal rules restrict any use of the information to criminally investigate or prosecute any alcohol or drug abuse patient.[facility] the event this information is protected by the Federal Confidentiality of Alcohol and Drug Abuse Patient Records regulations: The Federal rules restrict any use of the information to criminally investigate or prosecute any alcohol or drug abuse patient.[facility] the event this information is protected by the Federal Confidentiality of Alcohol and Drug Abuse Patient Records regulations: The Federal rules restrict any use of the information to criminally investigate or prosecute any alcohol or drug abuse patient.[facility]In the event this information is protected by the Federal Confidentiality of Alcohol and Drug Abuse Patient Records regulations: The Federal rules restrict any use of the information to criminally investigate or prosecute any alcohol or drug abuse patient.[facility]In the event this information is protected by the Federal Confidentiality of Alcohol and Drug Abuse Patient Records regulations: The Federal rules restrict any use of the information to criminally investigate or prosecute any alcohol or drug abuse patient.[facility]In the event this information is protected by the Federal Confidentiality of Alcohol and Drug Abuse Patient Records regulations: The Federal rules restrict any use of the information to criminally investigate or prosecute any alcohol or drug abuse patient.[facility]In the event this information is protected by the Federal Confidentiality of Alcohol and Drug Abuse Patient Records regulations: The Federal rules restrict any use of the information to criminally investigate or prosecute any alcohol or drug abuse patient.[facility]In the event this information is protected by the Federal Confidentiality of Alcohol and Drug Abuse Patient Records regulations: The Federal rules restrict any use of the information to criminally investigate or prosecute any alcohol or drug abuse patient.[facility]In the event this information is protected by the Federal Confidentiality of Alcohol and Drug Abuse Patient Records regulations: The Federal rules restrict any use of the information to criminally investigate or prosecute any alcohol or drug abuse patient.[facility]In the event this information is protected by the Federal Confidentiality of Alcohol and Drug Abuse Patient Records regulations: The Federal rules restrict any use of the information to criminally investigate or prosecute any alcohol or drug abuse patient.[facility]In the event this information is protected by the Federal Confidentiality of Alcohol and Drug Abuse Patient Records regulations: The Federal rules restrict any use of the information to criminally investigate or prosecute any alcohol or drug abuse patient.[facility]In the event this information is protected by the Federal Confidentiality of Alcohol and Drug Abuse Patient Records regulations: The Federal rules restrict any use of the information to criminally investigate or prosecute any alcohol or drug abuse patient.[facility]In the event this information is protected by the Federal Confidentiality of Alcohol and Drug Abuse Patient Records regulations: The Federal rules restrict any use of the information to criminally investigate or prosecute any alcohol or drug abuse patient.[facility]In the event this information is protected by the Federal Confidentiality of Alcohol and Drug Abuse Patient Records regulations: The Federal rules restrict any use of the information to criminally investigate or prosecute any alcohol or drug abuse patient.[facility]In the event this information is protected by the Federal Confidentiality of Alcohol and Drug Abuse Patient Records regulations: The Federal rules restrict any use of the information to criminally investigate or prosecute any alcohol or drug abuse patient.[facility]In the event this information is protected by the Federal Confidentiality of Alcohol and Drug Abuse Patient Records regulations: The Federal rules restrict any use of the information to criminally investigate or prosecute any alcohol or drug abuse patient.[facility]In the event this information is protected by the Federal Confidentiality of Alcohol and Drug Abuse Patient Records regulations: The Federal rules restrict any use of the information to criminally investigate or prosecute any alcohol or drug abuse patient.[facility]In the event this information is protected by the Federal Confidentiality of Alcohol and Drug Abuse Patient Records regulations: The Federal rules restrict any use of the information to criminally investigate or prosecute any alcohol or drug abuse patient.[facility]In the event this information is protected by the Federal Confidentiality of Alcohol and Drug Abuse Patient Records regulations: The Federal rules restrict any use of the information to criminally investigate or prosecute any alcohol or drug abuse patient.[facility]In the event this information is protected by the Federal Confidentiality of Alcohol and Drug Abuse Patient Records regulations: The Federal rules restrict any use of the information to criminally investigate or prosecute any alcohol or drug abuse patient.[facility]In the event this information is protected by the Federal Confidentiality of Alcohol and Drug Abuse Patient Records regulations: The Federal rules restrict any use of the information to criminally investigate or prosecute any alcohol or drug abuse patient.[facility]In the event this information is protected by the Federal Confidentiality of Alcohol and Drug Abuse Patient Records regulations: The Federal rules restrict any use of the information to criminally investigate or prosecute any alcohol or drug abuse patient.[facility]In the event this information is protected by the Federal Confidentiality of Alcohol and Drug Abuse Patient Records regulations: The Federal rules restrict any use of the information to criminally investigate or prosecute any alcohol or drug abuse patient.[facility]In the event this information is protected by the Federal Confidentiality of Alcohol and Drug Abuse Patient Records regulations: The Federal rules restrict any use of the information to criminally investigate or prosecute any alcohol or drug abuse patient.[facility]In the event this information is protected by the Federal Confidentiality of Alcohol and Drug Abuse Patient Records regulations: The Federal rules restrict any use of the information to criminally investigate or prosecute any alcohol or drug abuse patient.[facility]In the event this information is protected by the Federal Confidentiality of Alcohol and Drug Abuse Patient Records regulations: The Federal rules restrict any use of the information to criminally investigate or prosecute any alcohol or drug abuse patient.[facility]In the event this information is protected by the Federal Confidentiality of Alcohol and Drug Abuse Patient Records regulations: The Federal rules restrict any use of the information to criminally investigate or prosecute any alcohol or drug abuse patient.[facility]In the event this information is protected by the Federal Confidentiality of Alcohol and Drug Abuse Patient Records regulations: The Federal rules restrict any use of the information to criminally investigate or prosecute any alcohol or drug abuse patient.[facility]In the event this information is protected by the Federal Confidentiality of Alcohol and Drug Abuse Patient Records regulations: The Federal rules restrict any use of the information to criminally investigate or prosecute any alcohol or drug abuse patient.[facility]In the event this information is protected by the Federal Confidentiality of Alcohol and Drug Abuse Patient Records regulations: The Federal rules restrict any use of the information to criminally investigate or prosecute any alcohol or drug abuse patient.[facility]In the event this information is protected by the Federal Confidentiality of Alcohol and Drug Abuse Patient Records regulations: The Federal rules restrict any use of the information to criminally investigate or prosecute any alcohol or drug abuse patient.[facility]In the event this information is protected by the Federal Confidentiality of Alcohol and Drug Abuse Patient Records regulations: The Federal rules restrict any use of the information to criminally investigate or prosecute any alcohol or drug abuse patient.[facility]In the event this information is protected by the Federal Confidentiality of Alcohol and Drug Abuse Patient Records regulations: The Federal rules restrict any use of the information to criminally investigate or prosecute any alcohol or drug abuse patient.[facility]In the event this information is protected by the Federal Confidentiality of Alcohol and Drug Abuse Patient Records regulations: The Federal rules restrict any use of the information to criminally investigate or prosecute any alcohol or drug abuse patient.[facility]In the event this information is protected by the Federal Confidentiality of Alcohol and Drug Abuse Patient Records regulations: The Federal rules restrict any use of the information to criminally investigate or prosecute any alcohol or drug abuse patient.[facility]In the event this information is protected by the Federal Confidentiality of Alcohol and Drug Abuse Patient Records regulations: The Federal rules restrict any use of the information to criminally investigate or prosecute any alcohol or drug abuse patient.[facility]In the event this information is protected by the Federal Confidentiality of Alcohol and Drug Abuse Patient Records regulations: The Federal rules restrict any use of the information to criminally investigate or prosecute any alcohol or drug abuse patient.[facility]In the event this information is protected by the Federal Confidentiality of Alcohol and Drug Abuse Patient Records regulations: The Federal rules restrict any use of the information to criminally investigate or prosecute any alcohol or drug abuse patient.[facility]In the event this information is protected by the Federal Confidentiality of Alcohol and Drug Abuse Patient Records regulations: The Federal rules restrict any use of the information to criminally investigate or prosecute any alcohol or drug abuse patient.[facility]In the event this information is protected by the Federal Confidentiality of Alcohol and Drug Abuse Patient Records regulations: The Federal rules restrict any use of the information to criminally investigate or prosecute any alcohol or drug abuse patient.[facility]In the event this information is protected by the Federal Confidentiality of Alcohol and Drug Abuse Patient Records regulations: The Federal rules restrict any use of the information to criminally investigate or prosecute any alcohol or drug abuse patient.[facility]In the event this information is protected by the Federal Confidentiality of Alcohol and Drug Abuse Patient Records regulations: The Federal rules restrict any use of the information to criminally investigate or prosecute any alcohol or drug abuse patient.[facility]In the event this information is protected by the Federal Confidentiality of Alcohol and Drug Abuse Patient Records regulations: The Federal rules restrict any use of the information to criminally investigate or prosecute any alcohol or drug abuse patient.[facility]In the event this information is protected by the Federal Confidentiality of Alcohol and Drug Abuse Patient Records regulations: The Federal rules restrict any use of the information to criminally investigate or prosecute any alcohol or drug abuse patient.[facility]In the event this information is protected by the Federal Confidentiality of Alcohol and Drug Abuse Patient Records regulations: The Federal rules restrict any use of the information to criminally investigate or prosecute any alcohol or drug abuse patient.[facility] the event this information is protected by the Federal Confidentiality of Alcohol and Drug Abuse Patient Records regulations: The Federal rules restrict any use of the information to criminally investigate or prosecute any alcohol or drug abuse patient.[facility] the event this information is protected by the Federal Confidentiality of Alcohol and Drug Abuse Patient Records regulations: The Federal rules restrict any use of the information to criminally investigate or prosecute any alcohol or drug abuse patient.[facility] the event this information is protected by the Federal Confidentiality of Alcohol and Drug Abuse Patient Records regulations: The Federal rules restrict any use of the information to criminally investigate or prosecute any alcohol or drug abuse patient.[facility] the event this information is protected by the Federal Confidentiality of Alcohol and Drug Abuse Patient Records regulations: The Federal rules restrict any use of the information to criminally investigate or prosecute any alcohol or drug abuse patient.[facility] the event this information is protected by the Federal Confidentiality of Alcohol and Drug Abuse Patient Records regulations: The Federal rules restrict any use of the information to criminally investigate or prosecute any alcohol or drug abuse patient.[facility] the event this information is protected by the Federal Confidentiality of Alcohol and Drug Abuse Patient Records regulations: The Federal rules restrict any use of the information to criminally investigate or prosecute any alcohol or drug abuse patient.[facility] the event this information is protected by the Federal Confidentiality of Alcohol and Drug Abuse Patient Records regulations: The Federal rules restrict any use of the information to criminally investigate or prosecute any alcohol or drug abuse patient.[facility] the event this information is protected by the Federal Confidentiality of Alcohol and Drug Abuse Patient Records regulations: The Federal rules restrict any use of the information to criminally investigate or prosecute any alcohol or drug abuse patient.[facility] the event this information is protected by the Federal Confidentiality of Alcohol and Drug Abuse Patient Records regulations: The Federal rules restrict any use of the information to criminally investigate or prosecute any alcohol or drug abuse patient.[facility] Reason for Visit (unrecogniz ed section and content) Reason Comments PT Discharge Physical Therapy Specialty Diagnoses / Procedures Referred By Viraj banegas Referred To Contact [facility] Diagnoses Chronic midline low back pain without sciatica Procedures CONSULT TO PHYSICAL THERAPY PHYSICAL THERAPY EVALUATION HIGH COMPLEX 45 MINS Rishi Vasquez, DO [address] [place] [address] [facility] [place] [address] [place] [address] Referral ID Status Reason Start Date Expiration Date Visits Requested Visits Authorized [id number] Authorized Auto-Generat ed Referral 11/19/2023 11/18/2024 99 99 Reason Comments Physical Therapy Reason Comments Radiology US Specialty Diagnoses / Procedures Referred By Viraj banegas Referred To Contact US IMAGING Diagnoses Abnormal thyroid function test Procedures US THYROID/PARATHYROID US SOFT TISSUE HEAD & NECK REAL TIME IMGE DOCM Rishi Vasquez, DO [address] [place] [address] Us Imaging [id number] Referral ID Status Reason Start Date Expiration Date V isits Requested Visits Authorized [id number] Closed Auto-Generate d Referral 12/15/2022 01/14/2024 1 [...] WITH IMAGE LIMITED Danyelle Tripp PA-C [address] [place] [address] [facility] [address] [place] [address] Referral ID Status Reason Start Date Expiration Date V isits Requested Visits Authorized [id number] Closed Auto-Generate d Referral 05/29/2023 06/27/2024 1 1 Reason Comments Radiology NM Specialty Diagnoses / Procedures Referred By Contac t Referred To Contact [facility] Diagnoses Abnormal thyroid function test Procedures NM THY UPTAKE AND SCAN THYROID UPTAKE W/BLOOD FLOW SNGLE/MULT JAMARI NATALIA Rishi Vasquez L, DO [address] [place] [address] [facility] [address] [place] [address] Referral ID Status Reason Start Date Expiration Date V isits Requested Visits Authorized [id number] Closed Auto-Generate d Referral 12/15/2022 01/14/2024 1 1 Reason Onset Date Comments Refill Request 10/03/2023 Reason Comments Radiology US Specialty Diagnoses / Procedures Referred By Contac t Referred To Contact US IMAGING Diagnoses Multiple thyroid nodules Procedures US THYROID/PARATHYROID US SOFT TISSUE HEAD & NECK REAL TIME IMGE DOCM Rishi Vasquez L, DO [address] [place] [address] [place] [address] Referral ID Status Reason Start Date Expiration Date V isits Requested Visits Authorized [id number] Closed Auto-Generate d Referral 12/05/2023 01/03/2025 1 1 Reason Comments PT Eval Reason Onset Date Comments Refill Request 01/28/2024 Reason Comments Patient Update Reason Comments Results Reason Onset Date Comments Refill Request 03/22/2024 Reason Comments Orders Reason Comments Patient Update Reason Comments Patient Question Fish oil - [place] 3 Reason Comments Patient Question Reason Onset Date Comments Refill Request 12/25/2024 Reason Comments HH Nursing POC Reason Comments [facility] HH PT POC Reason Comments ER F/U [facility] ED -03/20 Multiple falls, gangrene SADIE feet Reason Comments Group Home Plan of Care Reason Comments diabetic f/up Reason Comments Diabetes Reason Comments Medication Problem Care Teams (unrecognized sec tion and content) Blueprint Duplicator Relationship Specialty Start Date End Date Rishi Vasquez, DO [address] [place] [address] PCP - General Family Practice 03/26/13 Blueprint Duplicator Relationship Specialty Start Date End Date Rishi Vasquez, DO [address] [place] [address] PCP - General Family Practice 03/26/13 Blueprint Duplicator Relationship Specialty Start Date End Date Rishi Vasquez, DO [address] [place] [address] PCP - General Family Practice 03/26/13 Blueprint Duplicator Relationship Specialty Start Date End Date Rishi Vasquez, DO [address] [place] [address] PCP - General Family Practice 03/26/13 Blueprint Duplicator Relationship Specialty Start Date End Date Rishi Vasquez, DO [address] [place] [address] PCP - General Family Practice 03/26/13 Blueprint Duplicator Relationship Specialty Start Date End Date Rishi Vasquez, DO [address] [place] [address] PCP - General Family Practice 03/26/13 Blueprint Duplicator Relationship Specialty Start Date End Date Rishi Vasquez, DO [address] [place] [address] PCP - General Family Practice 03/26/13 Blueprint Duplicator Relationship Specialty Start Date End Date Rishi Vasquez, DO [address] [place] [address] PCP - General Family Practice 03/26/13 Blueprint Duplicator Relationship Specialty Start Date End Date Rishi Vasquez, DO [address] [place] [address] PCP - General Family Practice 03/26/13 Blueprint Duplicator Relationship Specialty Start Date End Date Rishi Vasquez, DO [address] [place] [address] PCP - General Family Practice 03/26/13 Blueprint Duplicator Relationship Specialty Start Date End Date Rishi Vasquez, DO [address] [place] [address] PCP - General Family Practice 03/26/13 Blueprint Duplicator Relationship Specialty Start Date End Date Rishi Vasquez, DO [address] [place] [address] PCP - General Family Medicine 03/26/13 Blueprint Duplicator Relationship Specialty Start Date End Date Rishi Vasquez, DO [address] [place] [address] PCP - General Family Medicine 03/26/13 Blueprint Duplicator Relationship Specialty Start Date End Date Rishi Vasquez, DO [address] [place] [address] PCP - General Family Medicine 03/26/13 Blueprint Duplicator Relationship Specialty Start Date End Date Rishi Vasquez, DO [address] [place] [address] PCP - General Family Medicine 03/26/13 Blueprint Duplicator Relationship Specialty Start Date End Date Rishi Vasquez, DO [address] [place] [address] PCP - General Family Medicine 03/26/13 Blueprint Duplicator Relationship Specialty Start Date End Date Rishi Vasquez DO [address] [facility] [place] [address] PCP - General Family Medicine 03/26/13 Team [...] Primary Care Provider, Attend ing Provider Active Blueprint Duplicator Relationship Specialty Start Date End Date Rishi Vasquez DO [address] [facility] [place] [address] PCP - General Family Medicine 03/26/13 Blueprint Duplicator Relationship Specialty Start Date End Date Rishi Vasquez DO [address] [facility] [place] [address] PCP - General Family Medicine 03/26/13 Blueprint Duplicator Relationship Specialty Start Date End Date Rishi Vasquez DO [address] [facility] [place] [address] PCP - General Family Medicine 03/26/13 Team Status: Inactive Member Role Status Dates Dr. Rishi Vasquez DO Primary Care Provider, Referr ing Provider Active Rick Bergeron CUSTOM TAILOR APPRENTICE, CUSTOM TAILOR APPRENTICE-C Attending Provider Active Blueprint Duplicator Relationship Specialty Start Date End Date Rishi Vasquez DO [address] [facility] [place] [address] PCP - General Family Medicine 03/26/13 Blueprint Duplicator Relationship Specialty Start Date End Date Rishi Vasquez DO [address] [place] [address] PCP - General Family Medicine 03/26/13 Blueprint Duplicator Relationship Specialty Start Date End Date Rishi Vasquez DO [address] [place] [address] PCP - General Family Medicine 03/26/13 Blueprint Duplicator Relationship Specialty Start Date End Date Rishi Vasquez DO [address] [place] [address] PCP - General Family Medicine 03/26/13 Team [...] Moscoso MD Attending Provider, Referring Provider Active Blueprint Duplicator Relationship Specialty Start Date End Date Rishi Vasquez DO [address] [place] [address] PCP - General Family Medicine 03/26/13 Team Status: Inactive Member Role Status Dates Dr. Rishi Vasquez DO Primary Care Provider, Referr ing Provider Active Dr. Kwaku Moscoso MD Attending Provider Active Blueprint Duplicator Relationship Specialty Start Date End Date Rishi Vasquez DO [address] [place] [address] PCP - General Family Medicine 03/26/13 Team Status: Inactive Member Role Status Dates Dr. Rishi Vasquez DO Primary Care Provider Active Dr. Brandon Membreno , DPM Attending Provider, Referring Provider Active Blueprint Duplicator Relationship Specialty Start Date End Date Rishi Vasquez DO [address] [facility] [place] [address] PCP - General Family Medicine 03/26/13 Blueprint Duplicator Relationship Specialty Start Date End Date Rishi Vasquez DO [address] [facility] [place] [address] PCP - General Family Medicine 03/26/13 Blueprint Duplicator Relationship Specialty Start Date End Date Rishi Vasquez DO [address] [facility] [place] [address] PCP - General Family Medicine 03/26/13 Blueprint Duplicator Relationship Specialty Start Date End Date Rishi Vasquez DO [address] [facility] [place] [address] PCP - General Family Medicine 03/26/13 Blueprint Duplicator Relationship Specialty Start Date End Date Rishi Vasquez DO [address] [facility] [place] [address] PCP - General Family Medicine 03/26/13 Blueprint Duplicator Relationship Specialty Start Date End Date Rishi Vasquez DO [address] [place] [address] PCP - General Family Medicine 03/26/13 Blueprint Duplicator Relationship Specialty Start Date End Date Rishi Vasquez DO [address] [place] [address] PCP - General Family Medicine 03/26/13 Blueprint Duplicator Relationship Specialty Start Date End Date Risih Vasquez DO [address] [place] [address] PCP - General Family Medicine 03/26/13 Blueprint Duplicator Relationship Specialty Start Date End Date Rishi Vasquez DO [address] [place] [address] PCP - General Family Medicine 03/26/13 Team Status: Inactive Member Role Status Dates Dr. Rishi Vasquez DO Primary Care Provider, Referr ing Provider Active Dr. Ciaran Jacobo MD Attending Provider Active Blueprint Duplicator Relationship Specialty Start Date End Date Rishi Vasquez DO [address] [place] [address] PCP - General Family Medicine 03/26/13 Blueprint Duplicator Relationship Specialty Start Date End Date Rishi Vasquez DO [address] [place] [address] PCP - General Family Medicine 03/26/13 Blueprint Duplicator Relationship Specialty Start Date End Date Rishi Vasquez DO [address] [place] [address] PCP - General Family Medicine 03/26/13 Team Status: Active Member Role Status Dates Dr. Rishi Vasquez DO Primary Care Provider Active Dr. Elyssa Fierro MD Attending Provider Activ e Team Status: Inactive Member Role Status Dates Dr. Rishi Vasquez DO Primary Care Provider Active Dr. Ciaran Jacobo MD Attending Provider, Referring Provider Active Blueprint Duplicator Relationship Specialty Start Date End Date Rishi Vasquez DO [address] [place] [address] PCP - General Family Medicine 03/26/13 Blueprint Duplicator Relationship Specialty Start Date End Date Rishi Vasquez DO [address] [place] [address] PCP - General Family Medicine 03/26/13 Blueprint Duplicator Relationship Specialty Start Date End Date Rishi Vasquez DO [address] [place] [address] PCP - General Family Medicine 03/26/13 Blueprint Duplicator Relationship Specialty Start Date End Date Rishi Vasquez DO [address] [place] [address] PCP - General Family Medicine 03/26/13 Blueprint Duplicator Relationship Specialty Start Date End Date Rishi Vasquez DO [address] [place] [address] PCP - General Family Medicine 03/26/13 Blueprint Duplicator Relationship Specialty Start Date End Date Rishi Vasquez DO [address] [place] [address] PCP - General Family Medicine 03/26/13 Blueprint Duplicator Relationship Specialty Start Date End Date Rishi Vasquez DO [address] [place] [address] PCP - General Family Medicine 03/26/13 Blueprint Duplicator Relationship Specialty Start Date End Date Rishi Vasquez DO [address] [place] [address] PCP - General Family Medicine 03/26/13 Blueprint Duplicator Relationship Specialty Start Date End Date Rishi Vasquez DO [address] [place] [address] PCP - General Family Medicine 03/26/13 Blueprint Duplicator Relationship Specialty Start Date End Date Rishi Vasquez DO [address] [place] [address] PCP - General Family Medicine 03/26/13 Blueprint Duplicator Relationship Specialty Start Date End Date Rishi Vasquez DO [address] [place] [address] PCP - General Family Medicine 03/26/13 Blueprint Duplicator Relationship Specialty Start Date End Date Rishi Vasquez DO [address] [place] [address] PCP - General Family Medicine 03/26/13 Clary Andres, TAY.MARKETING RECRUITER [address] [place] [address] Supervisor Dog License Officer Family Medicine 10/26/24 Dillon Watts, CUPOLA MECHANIC.MARKETING RECRUITER [address] [place] [address] Supervisor Dog License Officer Family Medicine 10/26/24 Blueprint Duplicator Relationship Specialty Start Date End Date Rishi Vasquez DO [address] [place] [address] PCP - General Family Medicine 03/26/13 Clary Andres, CUPOLA MECHANIC.MARKETING RECRUITER [address] [place] [address] Supervisor Dog License Officer Family Medicine 10/26/24 Dillon Watts, CUPOLA MECHANIC.MARKETING RECRUITER [address] [place] [address] Supervisor Dog License Officer Family Medicine 10/26/24 Team Status: Active Member [...] Referring Provider Active Start: March 07, 2025 Blueprint Duplicator Relationship Specialty Start Date End Date Rishi Vasquez DO [address] [facility] [place] [address] PCP - General Family [facility] 03/26/13 [facility], CUPOLA MECHANIC.MARKETING RECRUITER [address] [facility] [place] [address] Supervisor [facility] 10/26/24 Blueprint Duplicator Relationship Specialty Start Date End Date Rishi Vasquez DO [address] [facility] [place] [address] PCP - General [facility] 03/26/13 [facility], CUPOLA MECHANIC.MARKETING RECRUITER [address] [facility] [place] [address] Supervisor [facility] 10/26/24 Blueprint Duplicator Relationship Specialty Start Date End Date Rishi Vasquez DO [address] [facility] [place] [address] P[address] - [facility] Medicine 03/26/13 [facility], CUPOLA MECHANIC.MARKETING RECRUITER [address] [facility] [place] [address] Supervisor [facility] 10/26/24 Team Status: Inactive Member Role Status [...] 11, 2025 End: March 20, 2025 Dr. Ptael Irene DPM Other Provider Active St art: [...] April 15, 2025 End: April 15, 2025 Blueprint Duplicator Relationship Specialty Start Date End Date Rishi Vasquez DO [address] [facility] [place] [address] PCP - General Family Medicine 03/26/13 [facility], CUPOLA MECHANIC.MARKETING RECRUITER [address] [facility] [place] [address] Supervisor Dog License Officer [facility] 10/26/24 Blueprint Duplicator Relationship Specialty Start Date End Date Rishi Vasquez DO [address] [facility] [place] [address] PCP - General [facility] Medicine 03/26/13 [facility], CUPOLA MECHANIC.MARKETING RECRUITER [address] [facility] [place], [place] [address] [facility] 10/26/24 Team Status: Inactive Member Role Status [...] Provider Active Start: April 21, 2025 Dr. Rsihi Vasquez DO Attending Provider Active Start: April 21, 2025 Dr. Rishi Vasquez DO Referring Provider Active Start: April 21, 2025 Blueprint Duplicator Relationship Specialty Start Date End Date Rishi Vasquez DO [address] [facility] [place], [place] [address] PCP - General Family Medicine 03/26/13 Dillon Watts, CUPOLA MECHANIC.MARKETING RECRUITER [address] [facility] [place], [place] [address] Supervisor Dog License Officer Family Medicine 10/26/24 Team Status: Active Member [...] April 27, 2025 End: April 27, 2025 Blueprint Duplicator Relationship Specialty Start Date End Date Rishi Vasquez DO [address] [facility] [place], [place] [address] PCP - General Family Medicine 03/26/13 [facility] InstituteKieraDillon, CUPOLA MECHANIC.MARKETING RECRUITER [address] [place], [place] [address] [facility] 10/26/24 Team Status: Active Member Role [...] 2025 End: May 07, 2025 Rick Bergeron CUSTOM TAILOR APPRENTICE, CUSTOM TAILOR APPRENTICE-C Attending Provider Active S tart: May 07, 2025 End: May 07, 2025 Blueprint Duplicator Relationship Specialty Start Date End Date Rishi Vasquez DO [address] [place] [address] PCP - [facility] Family Medicine 03/26/13 [facility], CUPOLA MECHANIC.MARKETING RECRUITER [address] [place], [place] [address] [facility] 10/26/24 Fouzia Escobedo, CUPOLA MECHANIC.MARKETING RECRUITER [address] [place], [place] [address] [facility] 05/04/25 Team Status: Inactive Member Role [...] content) DATE CREATED AUTHOR 05/12/2025 [facility] DATE CREATED AUTHOR 'S ORGANIZ ATION 05/17/2025 [facility] FOR RECORDS PERTAINING TO PATIENTS WHO ARE [...] BE BASED ON THE PRIMARY CLINICAL RECORDS. [facility] [employer] [facility]. provides no warranty or guarantee of the accuracy or completeness of information in this document.
[2025-05-18 03:08] LABS: Magnesium 2.6 mg/dL (1.5-2.2)
[2025-05-18] MEDS: Vancomycin IV 1,000 MG/200 ML BAG 200 MG IV (03:11)
--- NOTE | 2025-05-18 03:44 | PCM.RX.CS ---
Consult Antibiotic Management Pharmacy has been consulted to manage selected antibiotic: Vancomycin Type of Intervention Type of Consult: New start Labs Labs: Sodium 131 mmol/L (133-145) L 05/17/25 21:53 Potassium 4.7 mmol/L (3.3-5.1) 05/17/25 21:53 Chloride 97 mmol/L (98-108) L 05/17/25 21:53 Carbon Dioxide 17.5 mmol/L (21.0-32.0) L 05/17/25 21:53 Anion Gap 16 (5-15) H 05/17/25 21:53 BUN 78 mg/dL (4-19) H 05/17/25 21:53 Creatinine 1.96 mg/dL (0.70-1.20) H 05/17/25 21:53 Est GFR (MDRD) Non-Af 27 (>60) L 05/17/25 21:53 BUN/Creatinine Ratio 39.9 RATIO (10-20) H 05/17/25 21:53 Glucose 253 mg/dL (70-99) H 05/17/25 21:53 Dosing Weight Weight used for dosin.4 kg Estimated Creatinine Clearance Estimated Creatinine Clearance: 26.13 Goal Trough Goal Trough: 15-20 mcg/mL Pharmacy Plan for Drug Dosing Pharmacy Plan for Drug Dosing: Pharmacy Service will continue to monitor and adjust dosing as required. ER DOSE 1GM GIVEN 05/18 @ 0311. START 7450MG QD AND DRAW TROUGH PRIOR TO 3RD DOSE Follow-Up Labs Follow-Up Labs: Trough: Vancomycin Date/Time Labs Ordered Labs to be done on [date and time ordered]: 05/20 @ 0300
[2025-05-18 06:04] LABS: Hematocrit 26.2 % (37-47); Hemoglobin 8.5 g/dL (12.0-15.0); Immature Granulocytes Count 0.030 X10^3/uL (0.0-0.0); Mean Corp Hgb Conc 32.4 g/dL (32-36); Mean Corpuscular Volume 89.4 fL (81-99); Mean Platelet Vol. 11.4 fl (6.2-12.0); NRBC Flagged by Analyzer 0 % (0-5); POSITIVE DIFFERENTIAL YES; Platelet Count 158 K/mm3 (150-450); RBC Distribution Width CV 15.2 % (11.6-14.6); RBC Distribution Width SD 50.2 fl (35.1-43.9); Red Blood Count 2.93 M/mm3 (4.2-5.4); White Blood Count 6.3 K/mm3 (4.4-11.0)
[2025-05-18] MEDS: 0.9% Normal Saline (1000mL) 1,000 ML 125 ML IV ×2 (06:06→08:22)
[2025-05-18] MEDS: Piperacil/Tazobactam 3.375 GM in 0.9% Normal Saline (50mL MB+) 50 ML IV (06:06)
[2025-05-18 06:07] LABS: Partial Thromboplast Time 46.3 Seconds (24.1-36.2); Prothrombin Time (Protime)PT. 15.5 SECONDS (11.7-14.9)
[2025-05-18 06:18] LABS: AST(SGOT) 70 U/L (<=31); Alanine Aminotransfer ALT/SGPT 33 U/L (<=34); Albumin, Serum 2.7 g/dL (3.4-4.8); Alkaline Phosphatase 47 U/L (35-104); Anion Gap 13 (5-15); BUN 69 mg/dL (4-19); BUN/Creat Ratio 39.9 RATIO (10-20); Calcium,Total 9.1 mg/dL (7.6-11.0); Carbon Dioxide 18.8 mmol/L (21.0-32.0); Chloride 104 mmol/L (98-108); Estimated Creatinine Clearance 26.96 ml/min (50-250); Globulin 2.8 g/dL (2.2-4.2); Glucose 161 mg/dL (70-99); Potassium 3.7 mmol/L (3.3-5.1)
--- NOTE | 2025-05-18 06:54 | NURSING ---
assistant casino shift manager wire charger requested assistance in room. this nurse back to patient's room pt noted to be diaphertic primary RN beside with bp in 70's. states OT in 130's. Pt does arouse with verbal stimuli but somulent. Dr. Merchant paged emergantly. burning supervisor called and updated. pt placed on telemonitor and cspo2. 0710 aware per nightshift charge pt transferring to icu, nightshift primary RN calling report.
--- NOTE | 2025-05-18 06:59 | PCM.CONS.GEN ---
Assessment & Plan Assessment/Plan (1) Type 2 diabetes mellitus with foot ulcer: PLAN: Patient was examined and evaluated. All findings were discussed with patient. All questions were answered to the patient satisfaction. Left lower extremity nonweightbearing radiographs. Bone stock is within normal limits for the patient his age. Evidence of loss of medial longitudinal arch with Charcot-like changes. Evidence of amputation to the lesser digits and fifth ray with partial amputation to the great toe. No soft tissue air or emphysema is noted. Degenerative changes are also appreciated throughout the lower extremity. No evidence of bone destruction or osteomyelitis. Patient shows evidence of multiple full-thickness wounds to the bilateral lower extremity which are stable with only concern with possible soft tissue infection to the left medial ankle full-thickness wound. Patient is currently on IV antibiotics and shows great improvement. Due to the chronicity of the wounds we will plan for surgical debridement in the OR with application of amniotic skin graft substitute to the bilateral lower extremity. Please clear medically with recommendations. Will plan for surgical intervention Sunday, we will organize time and date with the operating room. PVR (01/06/2025): Right JEFFREY 0.732, left JEFFREY 0.84. Medicine: On board, medical management, IV antibiotics Vanco/Zosyn Vascular surgery: Consult pending WBC: 6.3 HbA1c: Pending Glucose: 132 ESR: Pending CRP: Pending Urinalysis: Urine clarity: Cloudy Urine protein: 100 Urine ketones: 5 Urine occult blood: 250 Leukocytes esterase: 500 Will plan for surgical intervention Sunday (05/20/25) afternoon based on OR availability. Wound care on board, by the lower extremity full-thickness wounds will get Santyl applied nickel thick, moist gauze dry sterile dressing light compression wrap to the bilateral lower extremity. Multi-Podus boot to the left lower extremity will be done followed by offloading heel pad to the right lower extremity. Podiatry will continue to follow patient while she is in house. Thank you for the consultation! (2) Cellulitis of left ankle: (3) 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 foot with fat layer exposed: (4) Non-pressure chronic ulcer of other part of right foot with fat layer exposed: (5) Non-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: HPI Consult Data Date of Consult: 05/19/25 HPI Narrative Reason for Consultation: Left lower extremity full-thickness wound infection HPI Narrative: KIMBERLY NEWMAN, is a 75 F w/ PMHx: CAD, PAD s/p peripheral angioplasty, Diabetes mellitus type II with Chronic neuropathy, Anxiety and Depression, HTN, HLD, Former tobacco use, Chronic normocytic anemia/Fe deficiency anemia, CKD stage III unclear subtype per GFR trending, chronic bilateral lower extremity diabetic ulcerations/wounds to the bilateral extremity. Patient is well-known to my office and has been treated conservatively with outpatient wound care. She is recently gone through revascularization by vascular surgery. She presented to the [facility] ED on 05/18/2025 with generalized weakness, fatigue, difficulty ambulating secondary weakness with fall the day prior when she was coming to the house at 11:15 AM unfortunately found later in the evening past 9 PM by her family eventually helped into a chair where she remained although she was able to get out of the chair in the morning and use the toilet but unfortunately was unable to even get up after this prompting EMS call with noted onset of fever reporting that she had recently started doxycycline oral antibiotic for erythema to the left foot wounds. Patient has been getting dressing changes per home health care and admits that the wounds are stable. She was ultimately admitted for the generalized weakness and urinary tract infection as well as concern for left lower extremity full-thickness wound being infected. Podiatry was consulted for wound care management and possible surgical intervention. She denies any constitutional symptoms at bedside today. No other pedal complaints at this time. [facility] Medical History (Updated 05/18/25 @ 16:[address] Michaela Joshua, ) Other specified peripheral vascular diseases History of MRSA infection Pressure ulcer Ambulates with cane Shortness of breath on exertion History of edema History of echocardiogram Fall Atherosclerosis of [place] artery of both lower extremities with gangrene Chronic painful diabetic polyneuropathy MRSA (methicillin resistant staph aureus) culture positive Depression Diabetes Back pain Vertigo History of pain when walking Hypertension Arthritis Wears dentures Post-menopausal Low iron High cholesterol Easy bruising Neuropathy Dietary restriction Former smoker Cardiology follow-up encounter History of torn meniscus of left knee Carotid artery stenosis Essential hypertension Skin lesion Hammer toe of left foot Osteomyelitis Chronic kidney disease, stage 3 Atherosclerosis of coronary artery of [place] heart without angina pectoris Hyperlipidemia Peripheral vascular occlusive disease Hammer toe of second toe of left foot Hallux valgus (acquired), right foot Healed ulcer of left foot on examination Chronic ulcer of left foot with fat layer exposed Delayed wound healing Malnutrition Osteomyelitis of foot 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 Methicillin resistant Staphylococcus aureus infection Chronic osteomyelitis of left foot Non-healing ulcer of right foot DM2 (diabetes mellitus, type 2) Home Medications ?Medication ?Instructions ?Recorded ?Last Taken ?Type aspirin 81 mg tablet,delayed 81 mg PO QHS blood clots 01/13/14 04/14/25 History release multivitamin with folic acid 400 1 tab PO DAILY Supplement 01/13/14 11/14/16 History mcg tablet omega-3 fatty acids-fish oil 340 1 ea PO DAILY supplement 06/29/16 08/27/16 History mg-1,000 mg capsule ferrous sulfate 325 mg (65 mg 325 mg PO DAILY SUPPLEMENT 08/15/18 03/08/25 History iron) tablet ascorbic acid (vitamin C) 500 mg 1,000 mg PO LUNCH Supplement 11/25/20 03/11/25 11:50 History tablet calcium carbonate (Calcium 600) 600 mg PO DAILY supplement 12/29/21 Unknown History clopidogrel 75 mg tablet 75 mg PO DAILY Blood clots #90 tabs 10/23/24 04/15/25 Rx Lactobacillus acidophilus 600 mg PO QDAY gi 03/07/25 03/11/25 09:00 History (Acidophilus capsule) pregabalin 100 mg capsule 100 mg PO TID nerve pain 03/07/25 03/11/25 11:50 History simvastatin 20 mg tablet 20 mg PO QHS cholesterol #30 tabs 03/23/25 Unknown Rx nystatin 100,000 unit/gram topical 1 applic topical BID PRN rash 05/07/25 Unknown History powder (Nyamyc) acetaminophen 650 mg 650 mg PO Q12H PRN pain 05/08/25 Unknown History tablet,extended release amlodipine 5 mg tablet 5 mg PO DAILY HTN #90 tabs 05/12/25 Unknown Rx metoprolol succinate 25 mg 12.5 mg (1/2 x 25 mg) PO DAILY 05/12/25 Unknown Rx tablet,extended release 24 hr HEART RATE #45 tabs glimepiride 2 mg tablet 2 mg PO BID 05/18/25 Unknown History Allergy/AdvReac Type Severity Reaction Status Date / Time Sulfa (Sulfonamide Allergy Unknown Verified 05/17/25 21:44 Antibiotics) Family History Father CAD (coronary artery disease) Heart disease Hypertension CVA (cerebral vascular accident) Mother COPD (chronic obstructive pulmonary disease) Hypertension Heart disease Heart failure Surgical History History of cardiac catheterization History of colonoscopy History of foot surgery History of repair of left rotator cuff History of total left knee replacement (~2014) History of angioplasty of peripheral vessel (~2012) amputation left toe History of left heart catheterization (~01/20/14) Social History household members: none Smoking Status: Former smoker how long ago did patient quit smokin years ago alcohol intake: never substance use type: does not use caffeine: No Physical Exam Narrative Vascular: DP and PT pulses are palpable bilateral lower extremity. CFT is brisk. Evidence of blanchable periwound erythema to the left ankle full-thickness wound. No evidence of erythema appreciated to the remaining wounds to the bilateral lower extremity. Skin temperature great is warm to warm from proximal ankle to distal digit bilateral. No focal increase is present. Neurological: Light touch is intact. Protective station is absent. Dermatological: Evidence of full-thickness wound to left lower extremity at the level of the heel, medial ankle and distal lateral foot secondary to amputation. All wound bases are fibrogranular nature. Wounds are stable with no concern for infection. Evidence of full-thickness wound to the right lower extremity at the level of the posterior lateral heel. Wound base is fibrogranular in nature. No erythema. No concern for infection. Musculoskeletal: No pain to palpation to the full-thickness wounds to the bilateral lower extremity. No pain with calf pressure. Const alert, oriented x3 and no apparent distress Lab / Micro Data 05/19/25 06:21 05/19/25 06:21 Labs: Laboratory Results - last 24 hr 05/17/25 21:53: WBC 7.1, RBC 3.07 L, Hgb 8.9 L, Hct 27.7 L, MCV 90.2, MCH 29.0, MCHC 32.1, RDW Std Deviation 50.8 H, RDW Coeff of [place] 15.3 H, Plt Count 162, MPV 11.3, Immature Gran % (Auto) 0.600, Neut % (Auto) 80.8 H, Lymph % (Auto) 7.4 L, [place] % (Auto) 10.6 H, Eos % (Auto) 0.0, Baso % (Auto) 0.6, Absolute Neuts (auto) 5.7, Absolute Lymphs (auto) 0.52 L, Nucleated RBC % 0, Sodium 131 L, Potassium 4.7, Chloride 97 L, Carbon Dioxide 17.5 L, Anion Gap 16 H, BUN 78 H, Creatinine 1.96 H, Estim Creat Clear Calc 26.13 L, Est GFR (MDRD) Non-Af 27 L, BUN/Creatinine Ratio 39.9 H, Glucose 253 H, Calcium 9.2, Phosphorus 3.8, Magnesium 2.6 H, Total Bilirubin 0.45, AST 83 H, ALT 36 H, Alkaline Phosphatase 54, Total Creatine Kinase 1177 H, Total Protein 6.3, Albumin 2.9 L, Globulin 3.4, Albumin/Globulin Ratio 0.8 L 05/17/25 22:33: Lactic Acid < 1.0 05/18/25 00:50: Urine Color Yellow, Urine Clarity Cloudy, Urine pH 5.0, Ur Specific [place] 1.020, Urine Protein 100 H, Urine Glucose (UA) Normal, Urine Ketones 5 H, Urine Occult Blood 250 H, Urine Nitrite Negative, Urine Bilirubin Negative, Urine Urobilinogen Normal, Ur Leukocyte Esterase 500 H, Urine RBC 0 SEEN, Urine WBC >100 SEEN, Ur Squamous Epith Cells 0-5 SEEN, Urine Bacteria 3+, Urine Mucus 0 SEEN 05/18/25 05:21: WBC 6.3, RBC 2.93 L, Hgb 8.5 L, Hct 26.2 L, MCV 89.4, MCH 29.0, MCHC 32.4, RDW Std Deviation 50.2 H, RDW Coeff of [place] 15.2 H, Plt Count 158, MPV 11.4, Immature Gran % (Auto) 0.500, Neut % (Auto) 76.2 H, Lymph % (Auto) 8.1 L, [place] % (Auto) 14.6 H, Eos % (Auto) 0.3, Baso % (Auto) 0.3, Absolute Neuts (auto) 4.8, Absolute Lymphs (auto) 0.51 L, Nucleated RBC % 0, PT 15.5 H, INR 2.2, APTT 46.3 H, Sodium 136, Potassium 3.7, Chloride 104, Carbon Dioxide 18.8 L, Anion Gap 13, BUN 69 H, Creatinine 1.74 H, Estim Creat Clear Calc 26.96 L, Est GFR (MDRD) Non-Af 31 L, BUN/Creatinine Ratio 39.9 H, Glucose 161 H, Calcium 9.1, Total Bilirubin 0.29, AST 70 H, ALT 33, Alkaline Phosphatase 47, Total Protein 5.5 L, Albumin 2.7 L, Globulin 2.8, Albumin/Globulin Ratio 1.0 05/18/25 06:18: POC Glucose 132 H Micro: Microbiology 05/18/25 04:00 Wound - Right Foot Skin and Soft Tissue MRSA/MSSA (PCR - Final Imaging Radiology Impression Chest X-Ray 05/17/25 22:35 IMPRESSION: No acute chest findings. [facility] 05/17/25 22:35 IMPRESSION: Possible osteoarthritis, 4th metatarsal head. Soft tissue swelling, without obvious soft tissue gas. Possible cellulitis. Reading Location: [facility]
[2025-05-18] MEDS: 0.9% Normal Saline (1000mL) 1,000 ML 999 ML IV ×3 (07:10→09:30)
--- NOTE | 2025-05-18 07:14 | PN.HOSP_ITS ---
Reason for Visit Reason for Visit: Generalized weakness/debility Subjective Subjective Called early this morning as patient had developed hypotension. Appears to have urinary tract related sepsis. Patient was transferred to the intensive care unit and treated with appropriate sepsis measures. Objective Data Objective Data Vital Signs: Vital Signs Temp Pulse Resp BP Pulse Ox O2 Del Method O2 Flow Rate 98.2 F 61 17 101/45 L 99 Nasal Cannula 4 05/18/25 07:05 05/18/25 07:05 05/18/25 07:05 05/18/25 07:05 05/18/25 07:05 05/18/25 07:05 05/18/25 07:05 Oxygen Flow Rate (L/min) 4 Oxygen Delivery Method Nasal Cannula Weight: 69.4 kg Body Mass Index (BMI) 24.5 Intake & Output: Intake and Output for Last 24 Hours 05/16/25 05/17/25 05/18/25 23:59 23:59 23:59 Intake Total 1250 / 1250 Balance 1250 / 1250 Lab / Micro Data 05/18/25 05:21 05/18/25 05:21 Labs: Laboratory Results - last 24 hr 05/17/25 21:53: WBC 7.1, RBC 3.07 L, Hgb 8.9 L, Hct 27.7 L, MCV 90.2, MCH 29.0, MCHC 32.1, RDW Std Deviation 50.8 H, RDW Coeff of [place] 15.3 H, Plt Count 162, MPV 11.3, Immature Gran % (Auto) 0.600, Neut % (Auto) 80.8 H, Lymph % (Auto) 7.4 L, [place] % (Auto) 10.6 H, Eos % (Auto) 0.0, Baso % (Auto) 0.6, Absolute Neuts (auto) 5.7, Absolute Lymphs (auto) 0.52 L, Nucleated RBC % 0, Sodium 131 L, Potassium 4.7, Chloride 97 L, Carbon Dioxide 17.5 L, Anion Gap 16 H, BUN 78 H, Creatinine 1.96 H, Estim Creat Clear Calc 26.13 L, Est GFR (MDRD) Non-Af 27 L, B UN/Creatinine Ratio 39.9 H, Glucose 253 H, Calcium 9.2, Phosphorus 3.8, M ag[place] 2.6 H, Total Bilirubin 0.45, AST 83 H, ALT 36 H, Alkaline Phosphatase 54, Total Creatine Kinase 1177 H, Total Protein 6.3, Albumin 2.9 L, Globulin 3.4, Albumin/Globulin Ratio 0.8 L 05/17/25 22:33: Lactic Acid < 1.0 05/18/25 00:50: Urine Color Yellow, Urine Clarity Cloudy, Urine pH 5.0, Ur Specific [place] 1.020, Urine Protein 100 H, Urine Glucose (UA) Normal, Urine Ketones 5 H, Urine Occult Blood 250 H, Urine Nitrite Negative, Urine Bilirubin Negative, Urine Urobilinogen Normal, Ur Leukocyte Esterase 500 H, Urine RBC 0 SEEN, Urine WBC >100 SEEN, Ur Squamous Epith Cells 0-5 SEEN, Urine Bacteria 3+, Urine Mucus 0 SEEN 05/18/25 05:21: WBC 6.3, RBC 2.93 L, Hgb 8.5 L, Hct 26.2 L, MCV 89.4, MCH 29.0, MCHC 32.4, RDW Std Deviation 50.2 H, RDW Coeff of [place] 15.2 H, Plt Count 158, MPV 11.4, Immature Gran % (Auto) 0.500, Neut % (Auto) 76.2 H, Lymph % (Auto) 8.1 L, [place] % (Auto) 14.6 H, Eos % (Auto) 0.3, Baso % (Auto) 0.3, Absolute Neuts (auto) 4.8, Absolute Lymphs (auto) 0.51 L, Nucleated RBC % 0, PT 15.5 H, INR 2.2, APTT 46.3 H, Sodium 136, Potassium 3.7, Chloride 104, Carbon Dioxide 18.8 L, Anion Gap 13, BUN 69 H, Creatinine 1.74 H, Estim Creat Clear Calc 26.96 L, Est GFR (MDRD) Non-Af 31 L, BUN/Creatinine Ratio 39.9 H, Glucose 161 H, Calcium 9.1, Total Bilirubin 0.29, AST 70 H, ALT 33, Alkaline Phosphatase 47, Total Protein 5.5 L, Albumin 2.7 L, Globulin 2.8, Albumin/Globulin Ratio 1.0 05/18/25 06:18: POC Glucose 132 H Micro: Microbiology 05/18/25 04:00 Wound - Right Foot Skin and Soft Tissue MRSA/MSSA (PCR - Final Radiography Diagnostic Testing: Radiology Impression Chest X-Ray 05/17/25 22:35 IMPRESSION: No acute chest findings. Reading Location: [facility] Foot X-Ray 05/17/25 22:35 IMPRESSION: Possible osteoarthritis, 4th metatarsal head. Soft tissue swelling, without obvious soft tissue gas. Possible cellulitis. Reading [facility] Assessment & Plan Assessment/Plan (1) Non-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: (2) 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 foot with fat layer exposed: (3) Non-pressure chronic ulcer of other part of right foot with fat layer exposed: (4) Sepsis: (5) Acute UTI: (6) Acute hypoxic respiratory failure: PLAN: Plan Sepsis secondary to suspected urinary tract infection - UA is markedly abnormal - Patient developed hypotension after she received antibiotics, has a bicarb lower than 20, developed SHAYY - Did not meet sepsis criteria at the time of admission - Suspect hypotension after antibiotics was related to bacterial lysis and precipitation of SIRS response - Fluid bolus given at 30 cc/kg body weight and patient was fluid responsive - Lactate was initially normal - Cultures are pending - Continue broad-spectrum antibiotics with vancomycin and Zosyn - CT of the abdomen pelvis performed without contrast to assess for any renal abnormalities or calculi/hydronephrosis/pyelonephritis that may need intervention due to the fact she developed sepsis - No significant abnormalities were noted SHAYY - Most recent baseline serum creatinine is between 0.9 and 1.1 next-on presentation serum creatinine is 1.96 - Fluid boluses as noted above - Avoid nephrotoxins as able - Continue IV fluids as ordered Acute hypoxic respiratory failure - Patient desatted and required 4 L nasal cannula - Highly suspect this is related to SIRS response and sepsis however we did obtain a CTA to rule out PE given immobility at baseline - Scheduled and as needed nebulizers - Continue supplemental oxygen and wean as able Peripheral vascular disease with bilateral lower extremity ulceration and wounds - Vascular surgery is following - Wounds are stable and do not appear to be the etiology of her sepsis - Plan is for revascularization next Sunday as long as she is medically stable - May go home and come back as an outpatient if medically stable for discharge prior to this - Continue aspirin and Plavix Diabetic foot ulcer bilateral lower extremities - Wounds overall appear stable - will continue antibiotic regimen - Podiatry is following and plans for some debridement on Sunday afternoon - Outpatient plan for revascularization is next Sunday as noted above - Cultures are pending - Patient does have a millimeter history of MRSA Acute rhabdomyolysis - Mild with initial CK of 1177 - IV fluids per sepsis - Repeat CK in a.m. Mild transaminitis - Suspect related to sepsis - Repeat lab in a.m. Acute hypovolemic hyponatremia - IV fluids as noted above - Repeat lab in a.m. CAD/essential hypertension/hyperlipidemia - Hold home antihypertensives due to hypotension - Will hold atorvastatin now due to elevated LFTs but reinitiate if stable or downtrend - Continue home aspirin - Continue Plavix Chronic normocytic anemia secondary to iron deficiency - Hemoglobin appears to be stable -continue home iron supplementation and vitamin C supplementation which will assist with iron absorption COPD with history of tobacco use - Continue aerosols as ordered Anxiety/depression - Patient currently is not on any medication for this DVT prophylaxis - Start heparin 3 times daily CODE STATUS -Full code is verified on admission Sepsis Attestation Sepsis Alert: Yes Sepsis Attestation: Agree w/Sepsis Date exam was performed: 05/18/25 Time exam was performed: 07:15 Possible Source of Sepsis: Genitourinary and Skin/soft tissue Sepsis Organ Dysfunction Criteria Present: SBP < 90 mmHg or MAP < 65 mmHg and PaO2/FiO2 ratio < 300 Fluid Resuscitation Fluid resuscitation indicated?: Yes Fluid Resuscitation ordered: 30 ml/kg fluid bolus ordered Amount of fluid ordered: 2,500 Sepsis Note Date exam was performed: 05/18/25 Time exam was performed: 09:13 Sepsis Attestation: Sepsis re-evaluation was performed Response to fluids: Fluid responsive hypotension
--- NOTE | 2025-05-18 07:15 | WOUNDNOTE ---
wound photo: left medial ankle
--- NOTE | 2025-05-18 07:15 | WOUNDNOTE ---
wound photo: left lower leg/heel
--- NOTE | 2025-05-18 07:16 | WOUNDNOTE ---
wound photo: right lateral heel
--- NOTE | 2025-05-18 07:26 | CT_ITS ---
PROCEDURE: ABDOMEN/PELVIS WITHOUT CONT 05/18/2025 REASON FOR EXAM: SEPSIS 2/2 UTI TECHNIQUE: ABDOMEN/PELVIS WITHOUT CONT Noncontrast technique limits evaluation of the abdominal and pelvic viscera. Coronal and Sagittal reconstruction series were provided. One or more dose reduction techniques were used (e.g., Automated exposure control, adjustment of the mA and/or kV according to patient size, use of iterative reconstruction technique). COMPARISON: Previous CTA FINDINGS: Lung bases: Chronic interstitial changes in both lung bases with bibasilar atelectasis more pronounced in the left lung base than the right. No organized infiltrate or suspicious noncalcified mass or nodule. There are calcified coronary vessels. Liver: Normal size. No obvious mass. Gallbladder: Multiple gallstones without CT evidence of acute cholecystitis. Spleen: Normal size. Pancreas: Normal size. No surrounding inflammation. Adrenals: Unremarkable Kidneys: Both kidneys demonstrate nonspecific prominence to the renal pelvis. There are diffuse vascular calcifications and nonobstructing corticomedullary junction stones. There is no hydroureter identified. Bladder: Bladder is distended without wall thickening or pericystic inflammation. Findings could be a sign of bladder outlet issues. Reproductive Organs: Uterus is present, the endometrium can not be accurately evaluated with CT. No suspicious cystic mass or free fluid Bowel: Small bowel loops are unremarkable, retained stool noted throughout the majority of the colon. Appendix: Normal appendix seen on coronal recon images 40 through 55 No free intraperitoneal fluid, air, or suspicious adenopathy Diffuse vascular calcifications Bones: Bony structures show degenerative change without acute fracture, or subchondral changes in the hips. CT/Abdomen/Pelvis without Cont IMPRESSION: Cholelithiasis, no CT evidence of acute cholecystitis Retained stool in the colon with scattered diverticula but no CT evidence of ac sreedhar diverticulitis Bladder is distended but no wall thickening or pericystic inflammation noted. Findings could be a sign of bladder outlet issues. No hydronephrosis or hydroureter but the kidneys demonstrate nonspecifically pr ominent renal pelves Diffuse atherosclerotic calcifications Nonobstructing renal stones Uterus is present, the endometrium can not be accurately evaluated with CT. Degenerative bony changes Reading Location: [id number]
--- NOTE | 2025-05-18 07:26 | CT_ITS ---
PROCEDURE: CTA CHEST W/WO CONTRAST 05/18/2025 REASON FOR EXAM: HYPOXIA TECHNIQUE: CTA CHEST W/WO CONTRAST Multiplanar Sagittal and Coronal images were obtained. CONTRAST: 75 cc Isovue 370 One or more dose reduction techniques were used (e.g., Automated exposure control, adjustment of the mA and/or kV according to patient size, use of iterative reconstruction technique). RADIATION DOSE SUMMARY: DLP: 654.98 mGycm COMPARISON: None FINDINGS: Hardware: Suture anchors are noted in the left humerus. Lymph nodes: There is no pathologic adenopathy by size criteria. Heart: Atherosclerotic calcifications are noted. RV/LV Diameter Ratio: 0.8 Thoracic Aorta: Intact Pulmonary Vessels: Main pulmonary artery Hounsfield units = 297. There is no visible pulmonary embolus. Most Proximal Level of Embolus (if embolus present): Lungs and Airways: There is a 0.5 cm solid nodule in the right mid lung, image 131/244. there is a 0.4 cm solid nodule in the right mid lung, image 115/244. There is atelectasis with a trace effusion at the left lung base. Upper Abdomen: Unremarkable Bones: There is no acute bony abnormality. CT/CTA Chest W/WO Contrast IMPRESSION: There is a 0.5 cm solid nodule in the right mid lung, image 131/244. There is a 0.4 cm solid nodule in the right mid lung, image 115/244. Follow-up is recommended. There is atelectasis with a trace effusion at the left lung base. There is no visible pulmonary embolus. Reading Location: [facility]
--- NOTE | 2025-05-18 07:30 | NURSING ---
[place] as an [place] [facility] Patient is drowsy but easily aroused to name. Patient was oriented x3 and follows commands. patient was placed on wall monitor, HR in 60's, BP 103/46, 99% on 2L nasal cannula, respirations 14, even and regular. Order was received for STAT CT of chest, patient transported to CT at 0735 by this RN
--- NOTE | 2025-05-18 08:27 | EX.PCM.CONCC ---
Assessment & Plan Assessment/Plan (1) Acute UTI: PLAN: Plan RECOMMENDATIONS: 1. Fluid resuscitation per sepsis protocol. 2. Follow-up lactate. 3. Empiric antimicrobials, pending culture results. ID consultation is pending. 4. Encourage incentive spirometer use and mobilize patient as tolerated. 5. Continue to wean supplemental oxygen to maintain saturations at or above 90%. IMPRESSIONS: 1. Sepsis The patient presented with sepsis due to probable UTI with acute sepsis related organ dysfunction as evidenced by persistent hypotension with a MAP of less than 65 and/or systolic blood pressure less than 90 mmHg. The patient did receive supplemental IV fluid hydration with appropriate response, hemodynamically. Given her normal lactate level, recommend targeting a systolic pressure at or above 90 mmHg. At the present time, the patient is without need for vasopressor support. She will be continued on antimicrobial therapy per infectious diseases recommendations. Podiatry is following regarding the patient's lower extremity foot wounds. 2. Acute on chronic kidney disease Most likely prerenal in etiology. Creatinine is improving with volume expansion. Continue to monitor urine output for now. No current indication for renal replacement therapy. 3. 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 Continue to wean supplemental oxygen to maintain saturations at or above 90%. 4. History of peripheral arterial disease/coronary artery disease/diabetes mellitus/hypertension/hyperlipidemia/anemia Complicates care, management, recovery and prognosis. Continue supportive measures as noted above. This note was generated with [employer] dictation software. It may contain incorrect words, spelling, and punctuation that were not noted in checking the note before signing. HPI Consult Data Date of Consult: 05/18/25 HPI Narrative Reason for Consultation: Sepsis HPI Narrative: The patient is a 75-year-old female, with a history as outlined below, who presented to the emergency department on May 18 with generalized malaise and weakness. The patient has a known history of coronary artery disease, peripheral arterial disease, diabetes mellitus, chronic tobacco dependency in remission, chronic kidney disease and anemia. The patient has never been evaluated by a sociology professor, nor has she ever been formally diagnosed with COPD. She does not utilize inhalers at her baseline. In addition, the patient reported that she does not utilize supplemental oxygen at her baseline. On presentation to the emergency department, the patient was noted to be febrile and tachypneic. She was otherwise hemodynamically stable and maintaining appropriate oxygen saturations on room air. Laboratory evaluation revealed a normal white blood cell count. Hemoglobin was low at 8.9 g/dL. Platelet count was within normal limits. Chemistry profile was notable for a sodium of 131, BUN of 78 and creatinine of 1.96. Lactate was within normal limits. Total bilirubin was normal at 0.45. Urine analysis was positive for leukocyte esterase and 3+ urine bacteria. Chest x-ray demonstrated no acute cardiopulmonary process. The patient was ultimately admitted to the hospital with concern for an infected left lower extremity diabetic ulcer and acute urinary tract source of infection. Consultation was placed to podiatry and vascular surgery. The patient was initiated on antimicrobials. Overnight, the patient developed worsening hypotension and hypoxemia, which ultimately resulted in her transfer to the ICU. [facility] Medical History (Updated 05/18/25 @ 07:[address] 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 Chronic painful diabetic polyneuropathy MRSA (methicillin resistant staph aureus) culture positive Depression Diabetes Back pain Vertigo History of pain when walking Hypertension Arthritis Wears dentures Post-menopausal Low iron High cholesterol Easy bruising Neuropathy Dietary restriction Former smoker Cardiology follow-up encounter History of torn meniscus of left knee Carotid artery stenosis Essential hypertension Skin lesion Hammer toe of left foot Osteomyelitis Chronic kidney disease, stage 3 Atherosclerosis of coronary artery of [place] heart without angina pectoris Hyperlipidemia Peripheral vascular occlusive disease Hammer toe of second toe of left foot Hallux valgus (acquired), right foot Healed ulcer of left foot on examination Chronic ulcer of left foot with fat layer exposed Delayed wound healing Malnutrition Osteomyelitis of foot 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 Methicillin resistant Staphylococcus aureus infection Chronic osteomyelitis of left foot Non-healing ulcer of right foot DM2 (diabetes mellitus, type 2) Home Medications ?Medication ?Instructions ?Recorded ?Last Taken ?Type aspirin 81 mg tablet,delayed 81 mg PO QHS blood clots 01/13/14 04/14/25 History release multivitamin with folic acid 400 1 tab PO DAILY Supplement 01/13/14 11/14/16 History mcg tablet omega-3 fatty acids-fish oil 340 1 ea PO DAILY supplement 06/29/16 08/27/16 History mg-1,000 mg capsule ferrous sulfate 325 mg (65 mg 325 mg PO DAILY SUPPLEMENT 08/15/18 03/08/25 History iron) tablet ascorbic acid (vitamin C) 500 mg 1,000 mg PO LUNCH Supplement 11/25/20 03/11/25 11:50 History tablet calcium carbonate (Calcium 600) 600 mg PO DAILY supplement 12/29/21 Unknown History clopidogrel 75 mg tablet 75 mg PO DAILY Blood clots #90 tabs 10/23/24 04/15/25 Rx Lactobacillus acidophilus 600 mg PO QDAY gi 03/07/25 03/11/25 09:00 History (Acidophilus capsule) pregabalin 100 mg capsule 100 mg PO TID nerve pain 03/07/25 03/11/25 11:50 History simvastatin 20 mg tablet 20 mg PO QHS cholesterol #30 tabs 03/23/25 Unknown Rx nystatin 100,000 unit/gram topical 1 applic topical BID PRN rash 05/07/25 Unknown History powder ([facility]) acetaminophen 650 mg 650 mg PO Q12H PRN pain 05/08/25 Unknown History tablet,extended release amlodipine 5 mg tablet 5 mg PO DAILY HTN #90 tabs 05/12/25 Unknown Rx metoprolol succinate 25 mg 12.5 mg (1/2 x 25 mg) PO DAILY 05/12/25 Unknown Rx tablet,extended release 24 hr HEART RATE #45 tabs glimepiride 2 mg tablet 2 mg PO BID 05/18/25 Unknown History Allergy/AdvReac Type Severity Reaction Status Date / Time Sulfa (Sulfonamide Allergy Unknown Verified 05/17/25 21:44 Antibiotics) Family History Father CAD (coronary artery disease) Heart disease Hypertension CVA (cerebral vascular accident) Mother COPD (chronic obstructive pulmonary disease) Hypertension Heart disease Heart failure Surgical History History of cardiac catheterization History of colonoscopy History of foot surgery History of repair of left rotator cuff History of total left knee replacement (~2014) History of angioplasty of peripheral vessel (~2012) amputation left toe History of left heart catheterization (~01/20/14) Social History household members: none Smoking Status: Former smoker how long ago did patient quit smokin years ago alcohol intake: never substance use type: does not use caffeine: No ROS ROS Narrative 10 systems were reviewed with pertinent positives as noted in the HPI above. Physical Exam Const Constitutional Narrative: Lethargic but arouses easily to verbal stimulation. General Appearance: lethargic and ill appearing HEENT normocephalic and head/scalp atraumatic Eyes PERRL, EOMs intact bilaterally and conjunctivae normal Neck supple General: trachea midline Chest inspection of chest normal Resp normal respiratory effort Auscultation: diminished lung sounds; Negative for rales, rhonchi or wheezes Cardio S1 normal heart sound and S2 normal heart sound Rate: tachycardic GI normal to inspection, nondistended, normoactive bowel sounds Extremity General Extremity: Negative for clubbing Skin Skin Narrative: Lower extremity foot wounds present on admission, currently wrapped Neuro CN's II-XII intact bilaterally and no focal motor deficits Psych Mood & Affect: flat affect Lab / Micro Data 05/18/25 05:21 05/18/25 05:21 Labs: Laboratory Results - last 24 hr 05/17/25 21:53: WBC 7.1, RBC 3.07 L, Hgb 8.9 L, Hct 27.7 L, MCV 90.2, MCH 29.0, MCHC 32.1, RDW Std Deviation 50.8 H, RDW Coeff of [place] 15.3 H, Plt Count 162, MPV 11.3, Immature Gran % (Auto) 0.600, Neut % (Auto) 80.8 H, Lymph % (Auto) 7.4 L, [place] % (Auto) 10.6 H, Eos % (Auto) 0.0, Baso % (Auto) 0.6, Absolute Neuts (auto) 5.7, Absolute Lymphs (auto) 0.52 L, Nucleated RBC % 0, Sodium 131 L, Potassium 4.7, Chloride 97 L, Carbon Dioxide 17.5 L, Anion Gap 16 H, BUN 78 H, Creatinine 1.96 H, Estim Creat Clear Calc 26.13 L, Est GFR (MDRD) Non-Af 27 L, BUN/Creatinine Ratio 39.9 H, Glucose 253 H, Calcium 9.2, Phosphorus 3.8, Magnesium 2.6 H, Total Bilirubin 0.45, AST 83 H, ALT 36 H, Alkaline Phosphatase 54, Total Creatine Kinase 1177 H, Total Protein 6.3, Albumin 2.9 L, Globulin 3.4, Albumin/Globulin Ratio 0.8 L 05/17/25 22:33: Lactic Acid < 1.0 05/18/25 00:50: Urine Color Yellow, Urine Clarity Cloudy, Urine pH 5.0, Ur Specific [place] 1.020, Urine Protein 100 H, Urine Glucose (UA) Normal, Urine Ketones 5 H, Urine Occult Blood 250 H, Urine Nitrite Negative, Urine Bilirubin Negative, Urine Urobilinogen Normal, Ur Leukocyte Esterase 500 H, Urine RBC 0 SEEN, Urine WBC >100 SEEN, Ur Squamous Epith Cells 0-5 SEEN, Urine Bacteria 3+, Urine Mucus 0 SEEN 05/18/25 05:21: WBC 6.3, RBC 2.93 L, Hgb 8.5 L, Hct 26.2 L, MCV 89.4, MCH 29.0, MCHC 32.4, RDW Std Deviation 50.2 H, RDW Coeff of [place] 15.2 H, Plt Count 158, MPV 11.4, Immature Gran % (Auto) 0.500, Neut % (Auto) 76.2 H, Lymph % (Auto) 8.1 L, [place] % (Auto) 14.6 H, Eos % (Auto) 0.3, Baso % (Auto) 0.3, Absolute Neuts (auto) 4.8, Absolute Lymphs (auto) 0.51 L, Nucleated RBC % 0, ESR 54 H, PT 15.5 H, INR 2.2, APTT 46.3 H, Sodium 136, Potassium 3.7, Chloride 104, Carbon Dioxide 18.8 L, Anion Gap 13, BUN 69 H, Creatinine 1.74 H, Estim Creat Clear Calc 26.96 L, Est GFR (MDRD) Non-Af 31 L, BUN/Creatinine Ratio 39.9 H, Glucose 161 H, Calcium 9.1, Total Bilirubin 0.29, AST 70 H, ALT 33, Alkaline Phosphatase 47, Total Protein 5.5 L, Albumin 2.7 L, Globulin 2.8, Albumin/Globulin Ratio 1.0 05/18/25 06:18: POC Glucose 132 H 05/18/25 07:40: Lactic Acid < 1.0 Micro: Microbiology 05/18/25 04:00 Wound - Right Foot Skin and Soft Tissue MRSA/MSSA (PCR - Final Meth. resistant Staph. aureus Imaging Radiology Impression Chest X-Ray 05/17/25 22:35 IMPRESSION: No acute chest findings. Reading Location: [facility] Foot X-Ray 05/17/25 22:35 IMPRESSION: Possible osteoarthritis, 4th metatarsal head. Soft tissue swelling, without obvious soft tissue gas. Possible cellulitis. Reading Location: [place] [address] Sepsis Attestation Sepsis Alert: Yes Sepsis Attestation: Agree w/Sepsis Date exam was performed: 05/18/25 Time exam was performed: 08:58 Sepsis Organ Dysfunction Criteria Present: SBP < 90 mmHg or MAP < 65 mmHg Fluid Resuscitation Fluid resuscitation indicated?: Yes Fluid Resuscitation ordered: 30 ml/kg fluid bolus ordered Sepsis Note Date exam was performed: 05/18/25 Time exam was performed: 09:56 Sepsis Attestation: Sepsis re-evaluation was performed Response to fluids: Fluid responsive hypotension Charges/Coding Visit Charges Inpatient E&M: 70881 Init Hosp L3
[2025-05-18] MEDS: Collagenase 30gm Tube 1 APPLIC TOPICAL (11:21)
[2025-05-18 11:28] LABS: CPK Total, Creatine Kinase 1008 U/L (24-195)
--- NOTE | 2025-05-18 12:27 | PCM.CONS.GEN ---
Assessment & Plan Assessment/Plan (1) Type 2 diabetes mellitus with foot ulcer: PLAN: Patient has MRSA isolated from the foot wound. Given her multiple comorbidities and underlying renal disease, I will switch her antimicrobial therapy to linezolid 600 mg twice a day. I will avoid parenteral vancomycin given the risk of nephrotoxicity. HPI Consult Data Date of Consult: 05/18/25 HPI Narrative Reason for Consultation: Diabetic foot wounds HPI Narrative: [place], is a 75 F who presents multiple comorbidities including diabetes mellitus complicated by diabetic foot ulcers, peripheral vascular disease, chronic renal disease who was admitted roughly 24 to 48 hours ago with generalized weakness and recurrent falls at home. Patient is managed on broad-spectrum antimicrobial therapy for vancomycin plus Zosyn. Patient did have fever shortly after admission. Blood cultures are pending. Wound culture of the foot growing MRSA. Patient does have underlying renal insufficiency. Chest x-ray unremarkable. Pulmonary/critical care note reviewed. Denies any gastrointestinal distress. [facility] Medical History (Updated 05/18/25 @ 07:[address] 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 Chronic painful diabetic polyneuropathy MRSA (methicillin resistant staph aureus) culture positive Depression Diabetes Back pain Vertigo History of pain when walking Hypertension Arthritis Wears dentures Post-menopausal Low iron High cholesterol Easy bruising Neuropathy Dietary restriction Former smoker Cardiology follow-up encounter History of torn meniscus of left knee Carotid artery stenosis Essential hypertension Skin lesion Hammer toe of left foot Osteomyelitis Chronic kidney disease, stage 3 Atherosclerosis of coronary artery of [place] heart without angina pectoris Hyperlipidemia Peripheral vascular occlusive disease Hammer toe of second toe of left foot Hallux valgus (acquired), right foot Healed ulcer of left foot on examination Chronic ulcer of left foot with fat layer exposed Delayed wound healing Malnutrition Osteomyelitis of foot 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 Methicillin resistant Staphylococcus aureus infection Chronic osteomyelitis of left foot Non-healing ulcer of right foot DM2 (diabetes mellitus, type 2) Home Medications ?Medication ?Instructions ?Recorded ?Last Taken ?Type aspirin 81 mg tablet,delayed 81 mg PO QHS blood clots 01/13/14 04/14/25 History release multivitamin with folic acid 400 1 tab PO DAILY Supplement 01/13/14 11/14/16 History mcg tablet omega-3 fatty acids-fish oil 340 1 ea PO DAILY supplement 06/29/16 08/27/16 History mg-1,000 mg capsule ferrous sulfate 325 mg (65 mg 325 mg PO DAILY SUPPLEMENT 08/15/18 03/08/25 History iron) tablet ascorbic acid (vitamin C) 500 mg 1,000 mg PO LUNCH Supplement 11/25/20 03/11/25 11:50 History tablet calcium carbonate (Calcium 600) 600 mg PO DAILY supplement 12/29/21 Unknown History clopidogrel 75 mg tablet 75 mg PO DAILY Blood clots #90 tabs 10/23/24 04/15/25 Rx Lactobacillus acidophilus 600 mg PO QDAY gi 03/07/25 03/11/25 09:00 History (Acidophilus capsule) pregabalin 100 mg capsule 100 mg PO TID nerve pain 03/07/25 03/11/25 11:50 History simvastatin 20 mg tablet 20 mg PO QHS cholesterol #30 tabs 03/23/25 Unknown Rx nystatin 100,000 unit/gram topical 1 applic topical BID PRN rash 05/07/25 Unknown History powder ([facility]) acetaminophen 650 mg 650 mg PO Q12H PRN pain 05/08/25 Unknown History tablet,extended release amlodipine 5 mg tablet 5 mg PO DAILY HTN #90 tabs 05/12/25 Unknown Rx metoprolol succinate 25 mg 12.5 mg (1/2 x 25 mg) PO DAILY 05/12/25 Unknown Rx tablet,extended release 24 hr HEART RATE #45 tabs glimepiride 2 mg tablet 2 mg PO BID 05/18/25 Unknown History Allergy/AdvReac Type Severity Reaction Status Date / Time Sulfa (Sulfonamide Allergy Unknown Verified 05/17/25 21:44 Antibiotics) Family History Father CAD (coronary artery disease) Heart disease Hypertension CVA (cerebral vascular accident) Mother COPD (chronic obstructive pulmonary disease) Hypertension Heart disease Heart failure Surgical History History of cardiac catheterization History of colonoscopy History of foot surgery History of repair of left rotator cuff History of total left knee replacement (~2014) History of angioplasty of peripheral vessel (~2012) amputation left toe History of left heart catheterization (~01/20/14) Social History household members: none Smoking Status: Former smoker how long ago did patient quit smokin years ago alcohol intake: never substance use type: does not use caffeine: No ROS ROS Narrative As stated in history of present illness otherwise negative Physical Exam Narrative Responsive out of bed to a chair does not appear acutely ill lungs are clear heart exam S1-S2 abdomen soft nontender both feet extensive dressings are in place. Patient appears chronically ill, mentation is appropriate Lab / Micro Data 05/18/25 05:21 05/18/25 05:21 Labs: Laboratory Results - last 24 hr 05/17/25 21:53: WBC 7.1, RBC 3.07 L, Hgb 8.9 L, Hct 27.7 L, MCV 90.2, MCH 29.0, MCHC 32.1, RDW Std Deviation 50.8 H, RDW Coeff of [place] 15.3 H, Plt Count 162, MPV 11.3, Immature Gran % (Auto) 0.600, Neut % (Auto) 80.8 H, Lymph % (Auto) 7.4 L, [place] % (Auto) 10.6 H, Eos % (Auto) 0.0, Baso % (Auto) 0.6, Absolute Neuts (auto) 5.7, Absolute Lymphs (auto) 0.52 L, Nucleated RBC % 0, Sodium 131 L, Potassium 4.7, Chloride 97 L, Carbon Dioxide 17.5 L, Anion Gap 16 H, BUN 78 H, Creatinine 1.96 H, Estim Creat Clear Calc 26.13 L, Est GFR (MDRD) Non-Af 27 L, BUN/Creatinine Ratio 39.9 H, Glucose 253 H, Calcium 9.2, Phosphorus 3.8, Magnesium 2.6 H, Total Bilirubin 0.45, AST 83 H, ALT 36 H, Alkaline Phosphatase 54, Total Creatine Kinase 1177 H, Total Protein 6.3, Albumin 2.9 L, Globulin 3.4, Albumin/Globulin Ratio 0.8 L 05/17/25 22:33: Lactic Acid < 1.0 05/18/25 00:50: Urine Color Yellow, Urine Clarity Cloudy, Urine pH 5.0, Ur Specific [place] 1.020, Urine Protein 100 H, Urine Glucose (UA) Normal, Urine Ketones 5 H, Urine Occult Blood 250 H, Urine Nitrite Negative, Urine Bilirubin Negative, Urine Urobilinogen Normal, Ur Leukocyte Esterase 500 H, Urine RBC 0 SEEN, Urine WBC >100 SEEN, Ur Squamous Epith Cells 0-5 SEEN, Urine Bacteria 3+, Urine Mucus 0 SEEN 05/18/25 05:21: WBC 6.3, RBC 2.93 L, Hgb 8.5 L, Hct 26.2 L, MCV 89.4, MCH 29.0, MCHC 32.4, RDW Std Deviation 50.2 H, RDW Coeff of [place] 15.2 H, Plt Count 158, MPV 11.4, Immature Gran % (Auto) 0.500, Neut % (Auto) 76.2 H, Lymph % (Auto) 8.1 L, [place] % (Auto) 14.6 H, Eos % (Auto) 0.3, Baso % (Auto) 0.3, Absolute Neuts (auto) 4.8, Absolute Lymphs (auto) 0.51 L, Nucleated RBC % 0, ESR 54 H, PT 15.5 H, INR 2.2, APTT 46.3 H, Sodium 136, Potassium 3.7, Chloride 104, Carbon Dioxide 18.8 L, Anion Gap 13, BUN 69 H, Creatinine 1.74 H, Estim Creat Clear Calc 26.96 L, Est GFR (MDRD) Non-Af 31 L, BUN/Creatinine Ratio 39.9 H, Glucose 161 H, Hemoglobin A1c 7.6 H, Calcium 9.1, Total Bilirubin 0.29, AST 70 H, ALT 33, Alkaline Phosphatase 47, Total Creatine Kinase 1008 H, Total Protein 5.5 L, Albumin 2.7 L, Globulin 2.8, Albumin/Globulin Ratio 1.0 05/18/25 06:18: POC Glucose 132 H 05/18/25 07:40: Lactic Acid < 1.0 05/18/25 11:26: POC Glucose 93 Micro: Microbiology 05/18/25 04:00 Wound - Right Foot Gram Stain - Final 05/18/25 04:00 Wound - Right Foot Skin and Soft Tissue MRSA/MSSA (PCR - Final Meth. resistant Staph. aureus Imaging Radiology Impression Chest X-Ray 05/17/25 22:35 IMPRESSION: No acute chest findings. [facility] Foot X-Ray 05/17/25 22:35 IMPRESSION: Possible osteoarthritis, 4th metatarsal head. Soft tissue swelling, without obvious soft tissue gas. Possible cellulitis. Reading Location: [facility] Abdomen/Pelvis CT 05/18/25 07:26 IMPRESSION: Cholelithiasis, no CT evidence of acute cholecystitis Retained stool in the colon with scattered diverticula but no CT evidence of acute diverticulitis Bladder is distended but no wall thickening or pericystic inflammation noted. Findings could be a sign of bladder outlet issues. No hydronephrosis or hydroureter but the kidneys demonstrate nonspecifically prominent renal pelves Diffuse atherosclerotic calcifications Nonobstructing renal stones Uterus is present, the endometrium can not be accurately evaluated with CT. Degenerative bony changes Reading Location: [id number] Chest CTA 05/18/25 07:26 IMPRESSION: There is a 0.5 cm solid nodule in the right mid lung, image 131/244. There is a 0.4 cm solid nodule in the right mid lung, image 115/244. Follow-up is recommended. There is atelectasis with a trace effusion at the left lung base. There is no visible pulmonary embolus. Reading [facility]
--- NOTE | 2025-05-18 12:35 | CASEMGMT ---
RN QIAN Assessment Face to Face with patient for initial transition planning/care coordination assessment. RN QIAN introduced self and role at [facility], pt voices understanding. Pt is A&Ox4 and is resting comfortably in the chair and is calm. Care providers, pharmacy, and demographics verified. Admitting dx: Diabetic Foot infected wound, UTI, Rhabdomyolysis, Falls LACE Strata: 2 PCP:Rishi Vasquez Specialists: Teto (Podiatry), Urbano (Vascular) [facility] [employer] [facility] Prescription Benefit: Yes LNOK: Julianne Carl (Sister), Vlad Mcneil (Brother) Living Arrangements: Pt lives alone in a single story home with a basement with 2 steps to enter. Pt's laundry is downstairs and there is a flight of steps to manage ADLs/IADLs: Pt states that she is normally independent. However, pt has had recent falls and is currently unable to completely care for herself. Pt states that her brother is able to assist some. Pt is also active with [facility] Transportation: Self usually, sister, brother. Declines concerns DME: [employer] with sufficient supplies. Surgical shoes. FWW. Quad Cane. Raised TS. Shower chair. grab bars. Medical Alert system. Pt is currently requiring additional oxygen and may qualify for home oxygen use. A verbal list of local in-network DME companies were provided to the pt at this time. Pt prefers [facility] HHC/SNF/Wound care: Hx @ [facility] TCU. Pt is active with [facility] (SN for wound care). TC to Yvonne who states that if pt is not discharged from the hospital before May 21 she will be a new SOC. CM to follow. Pt states that she has a history @ the [facility] but that she could not afford the copay. Pt states that she started going to the [facility] through Dr Irene for wound care. Pt also states that she is able to care for her wound herself at home some. Pt?s goal: Return to PLOF and return home with skilled HHC. Plan: TBD. Anticipate SNF vs Home with HHC. Follow for oxygen & wound care needs. Pt is projected for debridement surgery on Sunday (05/20). Pt is also projected for follow up vascular surgery next week on 05/[address] Clement. ID consulted and following. Pt denies further questions or concerns now. CM and SW to follow. Angela May RN CM
--- NOTE | 2025-05-18 12:57 | CON.PCM.SX_ITS ---
Assessment & Plan Assessment/Plan (1) 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: QUALIFIERS: Peripheral atherosclerosis artery type: [place] artery Lower extremity ulceration location: midfoot Qualified Code(s): I70.234 - Atherosclerosis of [place] arteries of right leg with ulceration of heel and midfoot; I70.244 - Atherosclerosis of [place] arteries of left leg with ulceration of heel and midfoot PLAN: -wounds stable and do not appear to be etiology of sepsis -u/a positive, culture pending -plan remains for open revasc next Sunday HPI Consult Data Date of Consult: 05/18/25 HPI Narrative HPI Narrative: KIMBERLY NEWMAN, is a 75 F who presents with fall from standing, unable to get up for several hours. Found to have UTI. She is known to vascular with plans for staged bilateral lower extremity open revascularization with LLE scheduled for next Sunday. Her wounds appear stable and without obvious infection at this time. She has been evaluated by Dr. Irene with plans to debride later this admission. She denies F/C/N/V/dysuria; in fact prior to her fall she felt at her baseline. [facility] Medical History (Updated 05/18/25 @ 13:[address] Russell Clement MD) Other specified peripheral vascular diseases History of MRSA infection Pressure ulcer Ambulates with cane Shortness of breath on exertion History of edema History of echocardiogram Fall Atherosclerosis of [place] artery of both lower extremities with gangrene Chronic painful diabetic polyneuropathy MRSA (methicillin resistant staph aureus) culture positive Depression Diabetes Back pain Vertigo History of pain when walking Hypertension Arthritis Wears dentures Post-menopausal Low iron High cholesterol Easy bruising Neuropathy Dietary restriction Former smoker Cardiology follow-up encounter History of torn meniscus of left knee Carotid artery stenosis Essential hypertension Skin lesion Hammer toe of left foot Osteomyelitis Chronic kidney disease, stage 3 Atherosclerosis of coronary artery of [place] heart without angina pectoris Hyperlipidemia Peripheral vascular occlusive disease Hammer toe of second toe of left foot Hallux valgus (acquired), right foot Healed ulcer of left foot on examination Chronic ulcer of left foot with fat layer exposed Delayed wound healing Malnutrition Osteomyelitis of foot 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 Methicillin resistant Staphylococcus aureus infection Chronic osteomyelitis of left foot Non-healing ulcer of right foot DM2 (diabetes mellitus, type 2) Home Medications ?Medication ?Instructions ?Recorded ?Last Taken ?Type aspirin 81 mg tablet,delayed 81 mg PO QHS blood clots 01/13/14 04/14/25 History release multivitamin with folic acid 400 1 tab PO DAILY Supple ment 01/13/14 11/14/16 History mcg tablet omega-3 fatty acids-fish oil 340 1 ea PO DAILY supplem ent 06/29/16 08/27/16 History mg-1,000 mg capsule ferrous sulfate 325 mg (65 mg 325 mg PO DAILY SUPPLEME NT 08/15/18 03/08/25 History iron) tablet ascorbic acid (vitamin C) 500 mg 1,000 mg PO LUNCH Sup plement 11/25/20 03/11/25 11:50 History tablet calcium carbonate (Calcium 600) 600 mg PO DAILY supple ment 12/29/21 Unknown History clopidogrel 75 mg tablet 75 mg PO DAILY Blood clots # 90 tabs 10/23/24 04/15/25 Rx Lactobacillus acidophilus 600 mg PO QDAY gi 03/07/25 0 03/11/25 09:00 History (Acidophilus capsule) pregabalin 100 mg capsule 100 mg PO TID nerve pain 03/11/25 11:50 History simvastatin 20 mg tablet 20 mg PO QHS cholesterol #30 tabs 03/23/25 Unknown Rx nystatin 100,000 unit/gram topical 1 applic topical BI D PRN rash 05/07/25 Unknown History powder ([facility]) acetaminophen 650 mg 650 mg PO Q12H PRN pain 04/20 Unknown History tablet,extended release amlodipine 5 mg tablet 5 mg PO DAILY HTN #90 tabs 0 05/12/25 Unknown Rx metoprolol succinate 25 mg 12.5 mg (1/2 x 25 mg) PO DA FABIAN 05/12/25 Unknown Rx tablet,extended release 24 hr HEART RATE #45 tabs glimepiride 2 mg tablet 2 mg PO BID 05/18/25 Unknown History Allergy/AdvReac Type Severity Reaction Status Date / Time Sulfa (Sulfonamide Allergy Unknown Verified 05/17/25 21:44 Antibiotics) Family History Father CAD (coronary artery disease) Heart disease Hypertension CVA (cerebral vascular accident) Mother COPD (chronic obstructive pulmonary disease) Hypertension Heart disease Heart failure Surgical History History of cardiac catheterization History of colonoscopy History of foot surgery History of repair of left rotator cuff History of total left knee replacement (~2014) History of angioplasty of peripheral vessel (~2012) amputation left toe History of left heart catheterization (~01/20/14) Social History household members: none Smoking Status: Former smoker how long ago did patient quit smokin years ago alcohol intake: never substance use type: does not use caffeine: No ROS Constitutional Constitutional: Reports weakness; Denies chills, fever(s), frequent falls or lethargy Eyes Eyes: Denies blind spots, change in vision or loss of vision ENT HEENT: Denies bleeding gums, hoarseness or sore throat Cardiovascular Cardiovascular: Reports weakness in extremities; Denies abdominal pain, bluish discoloration of hand/feet, chest pain with activity, claudication, cold extremities, cyanosis, dyspnea on exertion, erythema on extremities, irregular heart rhythm, leg edema or numbness in extremities Respiratory/Chest Respiratory/Chest: Denies cough, excessive phlegm production, shortness of breath at rest, shortness of breath with exertion or wheezing Gastrointestinal Gastrointestinal: Denies anorexia, change in stool character, constipation, diarrhea, melena or rectal bleeding Genitourinary Genitourinary: Denies dysuria or hematuria Musculoskeletal Musculoskeletal: Denies abnormal gait Integumentary Integumentary: Reports non-healing lesions and wounds; Denies erythema Neurologic Neurologic: Denies abnormal speech, focal weakness, headache(s), loss of vision, numbness, paresthesias or sensory deficit Hematologic/Lymphatic Hematologic/Lymphatic: Denies easy bleeding, easy bruising or lymphadenopathy Physical Exam Const alert, oriented x3 and no apparent distress General Appearance: cooperative and ill appearing Positive for chronically; Negative for combative or lethargic Orientation / Consciousness: awake Exam Limitations: no limitations HEENT Head and Scalp: normocephalic and atraumatic Eyes EOMs intact bilaterally General Eye: normal appearance of both eyes Neck full ROM General: trachea midline Resp normal respiratory effort and no use of accessory muscles Effort and Inspection: Negative for labored, stridor or audible wheezes Cardio regular rate and regular rhythm Peripheral Pulses: brachial pulses present, radial pulses present and femoral pulses present; Negative for popliteal pulses present, posterior tibial pulses present or dorsalis pedis pulses present Back/Spine Cervical Spine: cervical ROM normal Extremity full ROM, normal capillary refill and no clubbing, cyanosis or edema Skin no rashes or lesions noted Wounds: wounds noted Wound Narrative: wound care photos reviewed Neuro oriented x3, CN's II-XII intact bilaterally, no focal motor deficits and no sensory deficits noted Psych thought process normal, cooperative, affect normal, speech normal and activity/motor behavior normal Lab / Micro Data 05/18/25 05:21 05/18/25 05:21 Labs: Laboratory Results - last 24 hr 05/17/25 21:53: WBC 7.1, RBC 3.07 L, Hgb 8.9 L, Hct 27.7 L, MCV 90.2, MCH 29.0, MCHC 32.1, RDW Std Deviation 50.8 H, RDW Coeff of Jorgito 15.3 H, Plt Count 162, MPV 11.3, Immature Gran % (Auto) 0.600, Neut % (Auto) 80.8 H, Lymph % (Auto) 7.4 L, [place] % (Auto) 10.6 H, Eos % (Auto) 0.0, Baso % (Auto) 0.6, Absolute Neuts (auto) 5.7, Absolute Lymphs (auto) 0.52 L, Nucleated RBC % 0, Sodium 131 L, Potassium 4.7, Chloride 97 L, Carbon Dioxide 17.5 L, Anion Gap 16 H, BUN 78 H, Creatinine 1.96 H, Estim Creat Clear Calc 26.13 L, Est GFR (MDRD) Non-Af 27 L, B UN/Creatinine Ratio 39.9 H, Glucose 253 H, Calcium 9.2, Phosphorus 3.8, M agnesium 2.6 H, Total Bilirubin 0.45, AST 83 H, ALT 36 H, Alkaline Phosphatase 54, Total Creatine Kinase 1177 H, Total Protein 6.3, Albumin 2.9 L, Globulin 3.4, Albumin/Globulin Ratio 0.8 L 05/17/25 22:33: Lactic Acid < 1.0 05/18/25 00:50: Urine Color Yellow, Urine Clarity Cloudy, Urine pH 5.0, Ur Specific [place] 1.020, Urine Protein 100 H, Urine Glucose (UA) Normal, Urine Ketones 5 H, Urine Occult Blood 250 H, Urine Nitrite Negative, Urine Bilirubin Negative, Urine Urobilinogen Normal, Ur Leukocyte Esterase 500 H, Urine RBC 0 SEEN, Urine WBC >100 SEEN, Ur Squamous Epith Cells 0-5 SEEN, Urine Bacteria 3+, Urine Mucus 0 SEEN 05/18/25 05:21: WBC 6.3, RBC 2.93 L, Hgb 8.5 L, Hct 26.2 L, MCV 89.4, MCH 29.0, MCHC 32.4, RDW Std Deviation 50.2 H, RDW Coeff of Jorgito 15.2 H, Plt Count 158, MPV 11.4, Immature Gran % (Auto) 0.500, Neut % (Auto) 76.2 H, Lymph % (Auto) 8.1 L, [place] % (Auto) 14.6 H, Eos % (Auto) 0.3, Baso % (Auto) 0.3, Absolute Neuts (auto) 4.8, Absolute Lymphs (auto) 0.51 L, Nucleated RBC % 0, ESR 54 H, PT 15.5 H, INR 2.2, APTT 46.3 H, Sodium 136, Potassium 3.7, Chloride 104, Carbon Dioxide 18.8 L , Anion Gap 13, BUN 69 H, Creatinine 1.74 H, Estim Creat Clear Calc 26.96 L, Est GFR (MDRD) Non-Af 31 L, BUN/Creatinine Ratio 39.9 H, Glucose 161 H, Hemoglobin A1c 7.6 H, Calcium 9.1, Total Bilirubin 0.29, AST 70 H, ALT 33, Alkaline Phosphatase 47, Total Creatine Kinase 1008 H, Total Protein 5.5 L, Albumin 2.7 L , Globulin 2.8, Albumin/Globulin Ratio 1.0 05/18/25 06:18: POC Glucose 132 H 05/18/25 07:40: Lactic Acid < 1.0 05/18/25 11:26: POC Glucose 93 Micro: Microbiology 05/18/25 04:00 Wound - Right Foot Gram Stain - Final 05/18/25 04:00 Wound - Right Foot Skin and Soft Tissue MRSA/MSSA (PCR - Final Meth. resistant Staph. aureus Imaging Radiology Impression Chest X-Ray 05/17/25 22:35 IMPRESSION: No acute chest findings. Reading Location: [facility] Foot X-Ray 05/17/25 22:35 IMPRESSION: Possible osteoarthritis, 4th metatarsal head. Soft tissue swelling, without obvious soft tissue gas. Possible cellulitis. Reading Location: [facility] Abdomen/Pelvis CT 05/18/25 07:26 IMPRESSION: Cholelithiasis, no CT evidence of acute cholecystitis Retained stool in the colon with scattered diverticula but no CT evidence of acute diverticulitis Bladder is distended but no wall thickening or pericystic inflammation noted. Findings could be a sign of bladder outlet issues. No hydronephrosis or hydroureter but the kidneys demonstrate nonspecifically prominent renal pelves Diffuse atherosclerotic calcifications Nonobstructing renal stones Uterus is present, the endometrium can not be accurately evaluated with CT. Degenerative bony changes Reading Location: [id number] Chest CTA 05/18/25 07:26 IMPRESSION: There is a 0.5 cm solid nodule in the right mid lung, image 131/244. There is a 0.4 cm solid nodule in the right mid lung, image 115/244. Follow-up is recommended. There is atelectasis with a trace effusion at the left lung base. There is no visible pulmonary embolus. [facility]
--- NOTE | 2025-05-18 13:30 | RAD_ITS ---
PROCEDURE: ANKLE MIN 3 VIEWS 05/18/2025 REASON FOR EXAM: LEFT ANKLE ULCER TECHNIQUE: ANKLE MIN 3 VIEWS COMPARISON: Left foot 05/17/2025. RAD/Ankle min 3 Views IMPRESSION: Severe pes planus is again seen. Moderate arterial calcification is again noted. Prominent soft tissue swelling is seen over the lateral ankle. No osseous destructive changes seen to suggest the presence of osteomyelitis. No cortical or periosteal changes are identified. If clinical concern persists, consider further evaluation with nuclear medicine three-phase bone scan or other follow up imaging. Reading Location: [place] [id number]
--- NOTE | 2025-05-18 14:43 | CHAPLAIN ---
Type of Pastoral Visit _x__ Initial Visit ___ Follow-up Visit ___ On-call Visit ___ General Patient Visit ___ Spiritual Assessment ___ Family Conference ___ Bereavement ___ Rapid Response ___ Code Blue ___ Other (describe below) Pastoral Care Referral From _x__ Patient ___ Family ___ Nurse ___ Physician ___ Speech Communication Professor ___ Quality Rep ___ Other (describe below) Sacrament/Intervention _x__ Active listening ___ Anointing ___ Evangelical ___ Bereavement ___ Communion ___ Karla exploration ___ ___ Life review _x__ Prayer ___ Reconciliation ___ Sacrament of Sick _x__ Supportive presence ___ Wedding ___ Other (describe below) Pastoral Comments patient admits to pain that is not under control and is chronic; pt is waiting for either more tests or some follow up about plans and is somewhat disturbed about not having food or water; discussed options of getting through this experience in the best ways; pt presents with some negativity due to her circumstances which include being , having just a brother that is able to help her; pt could not think of much that was positive and she misses her pets greatly; pt did say yes for presence and prayer for her support
[2025-05-18] MEDS: Juven (unflavored) Packet 1 PACKET PO (16:19)
[2025-05-18] MEDS: Albuterol 2.5 MG/3 ML VIAL.NEB. INHALATION (19:16)
[2025-05-18] MEDS: Aspirin E.C. 81 MG Tablet PO (21:18)
[2025-05-19] VITALS (24 sets, daily range): BP systolic 92–136; BP diastolic 40–84; PULSE 64–107; RESP 11–20; TEMP 36.7–37.1; O2SAT 93–100; BMI 25.9
[2025-05-19] MEDS: 0.9% Saline Lock 10 ML Syringe IV (06:14)
[2025-05-19 06:31] LABS: Hematocrit 26.9 % (37-47); Hemoglobin 8.7 g/dL (12.0-15.0); Immature Granulocytes Count 0.030 X10^3/uL (0.0-0.0); Mean Corp Hgb Conc 32.3 g/dL (32-36); Mean Corpuscular Volume 90.3 fL (81-99); Mean Platelet Vol. 11.2 fl (6.2-12.0); NRBC Flagged by Analyzer 0 % (0-5); Platelet Count 148 K/mm3 (150-450); RBC Distribution Width CV 15.7 % (11.6-14.6); RBC Distribution Width SD 52.0 fl (35.1-43.9); Red Blood Count 2.98 M/mm3 (4.2-5.4); White Blood Count 5.8 K/mm3 (4.4-11.0)
--- NOTE | 2025-05-19 06:37 | PCM.PN.INT ---
Assessment & Plan Assessment/Plan (1) Acute UTI: PLAN: Plan RECOMMENDATIONS: 1. Continue antibiotics per ID recommendations. 2. Scheduled bronchodilators. 3. Encourage incentive spirometer use and mobilize patient as tolerated. 4. Will sign off from a critical care perspective. IMPRESSIONS: 1. Sepsis The patient presented with sepsis due to probable UTI with acute sepsis related organ dysfunction as evidenced by persistent hypotension with a MAP of less than 65 and/or systolic blood pressure less than 90 mmHg. The patient did receive supplemental IV fluid hydration with appropriate response, hemodynamically. The patient has never required any vasopressor support. Antimicrobial therapy will be continued per ID recommendations. 2. Acute on chronic kidney disease Improving. Most likely prerenal in etiology. Creatinine is improving with volume expansion. Continue to monitor urine output for now. No current indication for renal replacement therapy. 3. 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 The patient is currently maintaining appropriate oxygen saturations on room air. 4. History of peripheral arterial disease/coronary artery disease/diabetes mellitus/hypertension/hyperlipidemia/anemia Complicates care, management, recovery and prognosis. Continue supportive measures as noted above. This note was generated with [employer] dictation software. It may contain incorrect words, spelling, and punctuation that were not noted in checking the note before signing. Subjective Subjective The patient was seen and examined at the bedside this morning. Events from the last 24 hours have been reviewed. The patient is currently afebrile, hemodynamically stable and maintaining appropriate oxygen saturations on room air. The patient never required the initiation of vasopressor support yesterday. She is documented to be overall net +4.5 L for the hospitalization. White blood cell count is normal. Hemoglobin is stable at 8.7 g/dL. Creatinine has improved to 1.46. Objective Data Objective Data The patient's most recent lab work, culture data and imaging studies have all been personally reviewed. Wound culture dated May 18 was positive for MRSA. Blood and urine cultures are pending. Vital Signs: Vital Signs Temp Pulse Resp BP Pulse Ox O2 Del Method O2 Flow Rate 98.4 F 74 11 L 118/46 L 94 Room Air 2 05/19/25 06:00 05/19/25 06:00 05/19/25 06:00 05/19/25 06:00 05/19/25 06:00 05/19/25 06:00 05/18/25 16:00 FiO2 96 05/18/25 08:00 Oxygen Flow Rate (L/min) 2 Oxygen Delivery Method Room Air Weight: 161 lb 6.054 oz Body Mass Index (BMI) 25.9 Intake & Output: Intake and Output for Last 24 Hours 05/17/25 05/18/25 05/19/25 23:59 23:59 23:59 Intake Total 5082.33 / 5442.33 360 / 360 Output Total 325 / 325 600 / 600 Balance 4757.33 / 5117.33 -240 / -240 Lab / Micro Data Attestation: I reviewed the patient's lab results. 05/19/25 06:21 05/19/25 06:21 Labs: Laboratory Results - last 24 hr 05/18/25 05:21: ESR 54 H, Hemoglobin A1c 7.6 H, Total Creatine Kinase 1008 H 05/18/25 07:40: Lactic Acid < 1.0 05/18/25 11:26: POC Glucose 93 05/18/25 16:15: POC Glucose 191 H 05/18/25 21:22: POC Glucose 195 H 05/19/25 06:21: WBC 5.8, RBC 2.98 L, Hgb 8.7 L, Hct 26.9 L, MCV 90.3, MCH 29.2, MCHC 32.3, RDW Std Deviation 52.0 H, RDW Coeff of Jorgito 15.7 H, Plt Count 148 L, MPV 11.2, Immature Gran % (Auto) 0.500, Neut % (Auto) 73.3 H, Lymph % (Auto) 13.7 L, [place] % (Auto) 10.4 H, Eos % (Auto) 1.6, Baso % (Auto) 0.5, Absolute Neuts (auto) 4.2, Absolute Lymphs (auto) 0.79 L, Nucleated RBC % 0 Micro: Microbiology 05/18/25 04:00 Wound - Right Foot Gram Stain - Final 05/18/25 04:00 Wound - Right Foot Skin and Soft Tissue MRSA/MSSA (PCR - Final Meth. resistant Staph. aureus Radiography Diagnostic Testing: Radiology Impression Abdomen/Pelvis CT 05/18/25 07:26 IMPRESSION: Cholelithiasis, no CT evidence of acute cholecystitis Retained stool in the colon with scattered diverticula but no CT evidence of acute diverticulitis Bladder is distended but no wall thickening or pericystic inflammation noted. Findings could be a sign of bladder outlet issues. No hydronephrosis or hydroureter but the kidneys demonstrate nonspecifically prominent renal pelves Diffuse atherosclerotic calcifications Nonobstructing renal stones Uterus is present, the endometrium can not be accurately evaluated with CT. Degenerative bony changes Reading Location: [facility] Chest CTA 05/18/25 07:26 IMPRESSION: There is a 0.5 cm solid nodule in the right mid lung, image 131/244. There is a 0.4 cm solid nodule in the right mid lung, image 115/244. Follow-up is recommended. There is atelectasis with a trace effusion at the left lung base. There is no visible pulmonary embolus. Reading Location: [facility] Ankle X-Ray 05/18/25 13:30 IMPRESSION: Severe pes planus is again seen. Moderate arterial calcification is again noted. Prominent soft tissue swelling is seen over the lateral ankle. No osseous destructive changes seen to suggest the presence of osteomyelitis. No cortical or periosteal changes are identified. If clinical concern persists, consider further evaluation with nuclear medicine three-phase bone scan or other follow up imaging. Reading Location: [place] [id number] Physical Exam Const alert, oriented x3 and no apparent distress HEENT normocephalic, head/scalp atraumatic and moist oral mucous membranes Eyes PERRL, EOMs intact bilaterally and conjunctivae normal Neck supple General: trachea midline Chest inspection of chest normal Resp normal respiratory effort Auscultation: diminished lung sounds; Negative for rales, rhonchi or wheezes Cardio regular rate, regular rhythm, S1 normal heart sound and S2 normal heart sound GI normal to inspection, nondistended, normoactive bowel sounds Extremity General Extremity: Negative for clubbing Skin Skin Narrative: Lower extremity foot wounds present on admission, currently wrapped Neuro CN's II-XII intact bilaterally, moves all extremities and no focal motor deficits Psych cooperative and affect normal Charges/Coding Visit Charges Inpatient E&M: 20989 Subs Hosp L2
[2025-05-19 06:58] LABS: AST(SGOT) 68 U/L (<=31); Alanine Aminotransfer ALT/SGPT 37 U/L (<=34); Albumin, Serum 2.5 g/dL (3.4-4.8); Alkaline Phosphatase 45 U/L (35-104); Anion Gap 11 (5-15); BUN 53 mg/dL (4-19); BUN/Creat Ratio 36.4 RATIO (10-20); Calcium,Total 8.8 mg/dL (7.6-11.0); Carbon Dioxide 19.4 mmol/L (21.0-32.0); Chloride 109 mmol/L (98-108); Estimated Creatinine Clearance 35.14 ml/min (50-250); Globulin 2.9 g/dL (2.2-4.2); Glucose 89 mg/dL (70-99); Magnesium 2.5 mg/dL (1.5-2.2); Potassium 4.2 mmol/L (3.3-5.1)
[2025-05-19] MEDS: Juven (unflavored) Packet 1 PACKET PO ×2 (08:04→16:39)
[2025-05-19] MEDS: Collagenase 30gm Tube 1 APPLIC TOPICAL (09:06)
--- NOTE | 2025-05-19 12:46 | PN.HOSP_ITS ---
Reason for Visit Reason for Visit: Generalized weakness/debility Subjective Subjective Patient states she is feeling okay today. Much more awake, no issues overnight. Plan is for surgery tomorrow. Objective Data Objective Data Vital Signs: Vital Signs Temp Pulse Resp BP Pulse Ox O2 Del Method O2 Flow Rate 98.2 F 105 H 16 136/78 H 98 Room Air 2 05/19/25 12:00 05/19/25 12:00 05/19/25 12:00 05/19/25 12:00 05/19/25 12:00 05/19/25 12:00 05/18/25 16:00 FiO2 96 05/18/25 08:00 Oxygen Flow Rate (L/min) 2 Oxygen Delivery Method Room Air Weight: 73.2 kg Body Mass Index (BMI) 25.9 Intake & Output: Intake and Output for Last 24 Hours 05/17/25 05/18/25 05/19/25 23:59 23:59 23:59 Intake Total 5082.33 / 5442.33 360 / 360 Output Total 325 / 325 600 / 600 Balance 4757.33 / 5117.33 -240 / -240 Lab / Micro Data 05/19/25 06:21 05/19/25 06:21 Labs: Laboratory Results - last 24 hr 05/18/25 16:15: POC Glucose 191 H 05/18/25 21:22: POC Glucose 195 H 05/19/25 06:21: WBC 5.8, RBC 2.98 L, Hgb 8.7 L, Hct 26.9 L, MCV 90.3, MCH 29.2, MCHC 32.3, RDW Std Deviation 52.0 H, RDW Coeff of Jorgito 15.7 H, Plt Count 148 L, MPV 11.2, Immature Gran % (Auto) 0.500, Neut % (Auto) 73.3 H, Lymph % (Auto) 13.7 L, [place] % (Auto) 10.4 H, Eos % (Auto) 1.6, Baso % (Auto) 0.5, Absolute Neuts (auto) 4.2, Absolute Lymphs (auto) 0.79 L, Nucleated RBC % 0, Sodium 140, Potassium 4.2, Chloride 109 H, Carbon Dioxide 19.4 L, Anion Gap 11, BUN 53 H, C reatinine 1.46 H, Estim Creat Clear Calc 35.14 L, Est GFR (MDRD) Non-Af 38 L, B UN/Creatinine Ratio 36.4 H, Glucose 89, Calcium 8.8, Phosphorus 3.7, Magnesium 2.5 H, Total Bilirubin 0.25, AST 68 H, ALT 37 H, Alkaline Phosphatase 45, Total Protein 5.4 L, Albumin 2.5 L, Globulin 2.9, Albumin/Globulin Ratio 0.9 05/19/25 07:39: POC Glucose 82 05/19/25 11:30: POC Glucose 111 H Micro: Microbiology 05/17/25 22:33 Blood Culture (Wb) - Right Wrist Blood Culture - Preliminary 05/18/25 04:00 Wound - Right Foot Gram Stain - Final 05/18/25 04:00 Wound - Right Foot Wound Culture - Preliminary Staphylococcus species 05/18/25 04:00 Wound - Right Foot Skin and Soft Tissue MRSA/MSSA (PCR - Final Meth. resistant Staph. aureus Radiography Diagnostic Testing: Radiology Impression Ankle X-Ray 05/18/25 13:30 IMPRESSION: Severe pes planus is again seen. Moderate arterial calcification is again noted. Prominent soft tissue swelling is seen over the lateral ankle. No osseous destructive changes seen to suggest the presence of osteomyelitis. No cortical or periosteal changes are identified. If clinical concern persists, consider further evaluation with nuclear medicine three-phase bone scan or other follow up imaging. Reading Location: [place] [id number] Physical Exam Const alert, oriented x3 and no apparent distress; Negative for healthy appearing or well nourished Constitutional Narrative: Thin, white female, sitting up in a chair at the bedside, appears comfortable, nontoxic, appears older than stated age HEENT head/scalp atraumatic and moist oral mucous membranes HEENT Narrative: Mallampati 2, no thrush Head and Scalp: normocephalic Resp normal respiratory effort, no retractions, no use of accessory muscles and clear to auscultation bilaterally Auscultation: Negative for rales, rhonchi or wheezes Cardio regular rate, regular rhythm, S1 normal heart sound, S2 normal heart sound, no murmurs, no rub, no gallops and no clicks GI normal to inspection, nondistended, normoactive bowel sounds, soft to palpation and non-tender Extremity no clubbing, cyanosis or edema Extremity Narrative: Diminished cap refill bilateral lower extremities left greater than right, radial pulses are 2+ bilaterally Skin Skin Narrative: Patient with offloading brace left lower extremity for wounds, 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 with multiple amputations, decreased cap refill as noted above Neuro oriented x3, moves all extremities and no focal motor deficits Neuro Narrative: Generalized weakness no focal deficit Speech: speech normal Psych affect normal Psych Narrative: Pleasant, interacts appropriately Assessment & Plan Assessment/Plan (1) Non-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: (2) 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 foot with fat layer exposed: (3) Non-pressure chronic ulcer of other part of right foot with fat layer exposed: (4) Sepsis: (5) Acute UTI: (6) Acute hypoxic respiratory failure: PLAN: Plan Sepsis secondary to suspected urinary tract infection - UA is markedly abnormal still awaiting culture results both blood and urine - Sepsis syndrome has resolved - Continue broad-spectrum antibiotics with Zosyn and linezolid per infectious disease - CT of the abdomen pelvis performed without contrast to assess for any renal abnormalities or calculi/hydronephrosis/pyelonephritis that may need intervention due to the fact she developed sepsis - No significant abnormalities were noted SHAYY secondary to ATN - Most recent baseline serum creatinine is between 0.9 and 1.1 - on presentation serum creatinine is 1.96 -Now down to 1.46 - Fluid boluses as noted above - Avoid nephrotoxins as able - Continue IV fluids as ordered Acute hypoxic respiratory failure - Resolved - Continue aerosols Peripheral vascular disease with bilateral lower extremity ulceration and wounds - Cultures are showing Staph aureus in the form of MRSA - Vascular surgery is following - Wounds are stable and do not appear to be the etiology of her sepsis - Plan is for revascularization next Sunday as long as she is medically stable - May go home and come back as an outpatient if medically stable for discharge prior to this - Continue aspirin and Plavix Diabetic foot ulcer bilateral lower extremities - Wounds overall appear stable - will continue antibiotic regimen -Cultures with MRSA - Podiatry is following and plans for some debridement on Sunday - Outpatient plan for revascularization is next Sunday as noted above Acute rhabdomyolysis - Resolved Mild transaminitis - Slowly improving Acute hypovolemic hyponatremia - IV fluids as noted above - Repeat lab in a.m. CAD/essential hypertension/hyperlipidemia - Will continue to hold antihypertensives for now but consider restarting soon - Restart home atorvastatin - Continue home aspirin - Continue Plavix Chronic normocytic anemia secondary to iron deficiency - Hemoglobin appears to be stable - continue home iron supplementation and vitamin C supplementation which will assist with iron absorption COPD with history of tobacco use - Continue aerosols as ordered Anxiety/depression - Patient currently is not on any medication for this DVT prophylaxis - Continue heparin 3 times daily CODE STATUS -Full code is verified on admission Charges/Coding Visit Charges Inpatient E&M: 23082 Subs Hosp L2
--- NOTE | 2025-05-19 14:06 | PCM.PN.ID ---
ID ID: Route of nutrition/ use of supplements: [] Nutritional Intake: [] IV Site: [] Null Catheter: [] Patient is alert and responsive. Comfortable on room air. No further fevers. Tolerating linezolid well. No cardiopulmonary distress. No gastrointestinal symptoms. Vital signs reviewed remained euthermic lungs are clear heart exam S1-S2 abdomen soft nontender left foot dressings in place Assessment & Plan Assessment/Plan (1) Type 2 diabetes mellitus with foot ulcer: PLAN: Diabetic foot ulcers with Staphylococcus aureus isolated from the wound cultures. Will continue linezolid 600 mg p.o. every 12 hours and follow clinically. The patient tells me that she is scheduled for surgery tomorrow for debridement of her diabetic foot wounds.
[2025-05-19] MEDS: Metoprolol(XL)Succ 25 MG Tablet 12.5 MG PO (15:07)
[2025-05-19] MEDS: Heparin Injection (Vial) 5,000 UNIT/ML VIAL 5000 UNIT SC ×2 (15:13→21:07)
--- NOTE | 2025-05-19 16:34 | CASEMGMT ---
Social Work SW met with pt's brother who is expressing concerns with pt's living situation. Brother Tone stating pt is not caring for herself at home and not eating as she is more concerned with feeding her many cats than she is with feeding herself. Per Tone, pt is also very weak and having falls. Tone feels pt cannot return home at this time. SW provided empathetic listening and also explained that staff has laid ground work with pt that she may need SNF, but ultimately pt has the right to her own decisions. GEMA will meet with pt after procedure tomorrow to discuss safe discharge plan. BREANNA Sherwood
[2025-05-19] MEDS: Aspirin E.C. 81 MG Tablet PO (21:07)
[2025-05-20] VITALS (16 sets, daily range): BP systolic 94–142; BP diastolic 45–65; PULSE 62–105; RESP 15–20; TEMP 36.5–37.2; O2SAT 95–100; BMI 25.9; BMI 26.0
--- NOTE | 2025-05-20 07:33 | PCM.PN.HOSP ---
Reason for Visit Reason for Visit: Generalized weakness/debility Subjective Subjective Patient is complaining of some neck pain that is been chronic for about the last 2 months she states it comes and goes. He denies back on this is not helpful. I did inform her that we would try heat pack and will add some mild muscle relaxant low-dose. Plan is for OR later today. She states she would like to go home but she did not do very well with therapy. I am concerned that she may need placement at discharge. Objective Data Objective Data Vital Signs: Vital Signs Temp Pulse Resp BP Pulse Ox O2 Del Method O2 Flow Rate 98.9 F 62 16 137/49 H 99 Room Air 2 05/20/25 03:00 05/20/25 06:48 05/20/25 06:48 05/20/25 03:00 05/20/25 06:48 05/20/25 06:48 05/18/25 16:00 FiO2 96 05/18/25 08:00 Oxygen Flow Rate (L/min) 2 Oxygen Delivery Method Room Air Weight: 73.2 kg Body Mass Index (BMI) 25.9 Intake & Output: Intake and Output for Last 24 Hours 05/18/25 05/19/25 05/20/25 23:59 23:59 23:59 Intake Total 5082.33 / 5442.33 360 / 360 Output Total 325 / 325 850 / 850 Balance 4757.33 / 5117.33 -490 / -490 Lab / Micro Data 05/20/25 05:30 05/20/25 05:30 Labs: Laboratory Results - last 24 hr 05/19/25 07:39: POC Glucose 82 05/19/25 11:30: POC Glucose 111 H 05/19/25 16:32: POC Glucose 237 H 05/19/25 21:14: POC Glucose 197 H 05/20/25 06:27: POC Glucose 143 H Micro: Microbiology 05/17/25 22:33 Blood Culture (Wb) - Right Wrist Blood Culture - Preliminary 05/18/25 04:00 Wound - Right Foot Gram Stain - Final 05/18/25 04:00 Wound - Right Foot Wound Culture - Preliminary Staphylococcus species 05/18/25 04:00 Wound - Right Foot Skin and Soft Tissue MRSA/MSSA (PCR - Final Meth. resistant Staph. aureus Physical Exam Const alert, oriented x3 and no apparent distress; Negative for healthy appearing or well nourished Constitutional Narrative: Thin, white female, sitting up in a chair at the bedside, physical therapy at the bedside getting ready to get her up and moving around, appears comfortable, nontoxic, appears older than stated age HEENT head/scalp atraumatic and moist oral mucous membranes HEENT Narrative: Dentition is poor, Mallampati is 2, no thrush Head and Scalp: normocephalic Resp normal respiratory effort, no retractions, no use of accessory muscles and clear to auscultation bilaterally Resp Narrative: Diffusely diminished but clear Auscultation: Negative for rales, rhonchi or wheezes Cardio regular rate, regular rhythm, S1 normal heart sound, S2 normal heart sound, no murmurs, no rub, no gallops and no clicks GI normal to inspection, nondistended, normoactive bowel sounds, soft to palpation and non-tender Extremity no clubbing, cyanosis or edema Extremity Narrative: Diminished cap refill bilateral lower extremities left greater than right, radial pulses are 2+ bilaterally Skin Skin Narrative: Patient with offloading brace left lower extremity for wounds, 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 with multiple amputations, decreased cap refill as noted above Neuro moves all extremities and no focal motor deficits Neuro Narrative: Generalized weakness no focal deficit Speech: speech normal Psych affect normal Psych Narrative: Pleasant, interacts appropriately Assessment & Plan Assessment/Plan (1) Non-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: (2) 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 foot with fat layer exposed: (3) Non-pressure chronic ulcer of other part of right foot with fat layer exposed: (4) Sepsis: (5) Acute UTI: (6) Acute hypoxic respiratory failure: PLAN: Plan Sepsis secondary to suspected urinary tract infection - Culture shows yeast, gram-positive maycol, and gram-negative maycol - Sepsis syndrome has resolved - Continue broad-spectrum antibiotics with Zosyn and linezolid per infectious disease - CT of the abdomen pelvis performed without contrast to assess for any renal abnormalities or calculi/hydronephrosis/pyelonephritis that may need intervention due to the fact she developed sepsis - No significant abnormalities were noted SHAYY secondary to ATN - Most recent baseline serum creatinine is between 0.9 and 1.1 - on presentation serum creatinine is 1.96 - Creatinine seems to be stabilizing at 1.4-1.5 range currently being 1.49 suspect this may be her new baseline - Avoid nephrotoxins as able - Continue IV fluids as ordered Peripheral vascular disease with bilateral lower extremity ulceration and wounds - Cultures are showing Staph aureus in the form of MRSA - Vascular surgery is following - Wounds are stable and do not appear to be the etiology of her sepsis - Plan is for revascularization next Sunday as long as she is medically stable - May go home and come back as an outpatient if medically stable for discharge prior to this - Continue aspirin and Plavix Diabetic foot ulcer bilateral lower extremities - Wounds overall appear stable - will continue antibiotic regimen -Cultures with MRSA - OR later today with podiatry - Outpatient plan for revascularization is next Sunday as noted above Acute hypovolemic hyponatremia - Resolved CAD/essential hypertension/hyperlipidemia - Continue home metoprolol - Restart home atorvastatin - Continue home aspirin - Continue Plavix Chronic normocytic anemia secondary to iron deficiency - Hemoglobin appears to be stable - continue home iron supplementation and vitamin C supplementation which will assist with iron absorption COPD with history of tobacco use - Continue aerosols as ordered Anxiety/depression - Patient currently is not on any medication for this DVT prophylaxis - Continue heparin 3 times daily CODE STATUS -Full code is verified on admission Charges/Coding Visit Charges Inpatient E&M: 61108 Subs Hosp L2
--- NOTE | 2025-05-20 07:46 | PCM.PN.SRG ---
Subjective Subjective Ms. Fuller is a 75-year-old diabetic female seen at bedside today for evaluation prior to surgery. Patient is doing well and has been transferred back to the medicine floor from ICU. She is doing well and anticipating surgery today. No acute events overnight. Denies any constitutional symptoms. No other pedal complaints at this time. Objective Data Objective Data Vital Signs: Vital Signs Temp Pulse Resp BP Pulse Ox O2 Del Method O2 Flow Rate 98.9 F 62 16 137/49 H 99 Room Air 2 05/20/25 03:00 05/20/25 06:48 05/20/25 06:48 05/20/25 03:00 05/20/25 06:48 05/20/25 06:48 05/18/25 16:00 FiO2 96 05/18/25 08:00 Oxygen Flow Rate (L/min) 2 Oxygen Delivery Method Room Air Weight: 73.2 kg Body Mass Index (BMI) 25.9 Intake & Output: Intake and Output for Last 24 Hours 05/18/25 05/19/25 05/20/25 23:59 23:59 23:59 Intake Total 5082.33 / 5442.33 360 / 360 Output Total 325 / 325 850 / 850 Balance 4757.33 / 5117.33 -490 / -490 Lab / Micro Data 05/19/25 06:21 05/19/25 06:21 Labs: Laboratory Results - last 24 hr 05/19/25 07:39: POC Glucose 82 05/19/25 11:30: POC Glucose 111 H 05/19/25 16:32: POC Glucose 237 H 05/19/25 21:14: POC Glucose 197 H 05/20/25 06:27: POC Glucose 143 H Micro: Microbiology 05/18/25 04:00 Wound - Right Foot Gram Stain - Final 05/18/25 04:00 Wound - Right Foot Wound Culture - Preliminary Staphylococcus aureus Rothia kristinae 05/18/25 04:00 Wound - Right Foot Skin and Soft Tissue MRSA/MSSA (PCR - Final Meth. resistant Staph. aureus 05/17/25 22:33 Blood Culture (Wb) - Right Wrist Blood Culture - Preliminary Physical Exam Narrative Neurovascular status is unchanged. Multiple full-thickness wounds appreciated to the bilateral lower extremity stable with no sign of infection. Negative probe to bone to the left heel. No pain with calf compression. Const oriented x3 and no apparent distress Assessment & Plan Assessment/Plan (1) Non-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: PLAN: Patient was examined and evaluated. All findings were discussed with the patient. All questions were answered to the patient satisfaction. Plan for today will be to take the patient to the operating room to perform surgical skin graft site prep with application of skin graft substitute to the bilateral lower extremity full-thickness wounds. All risk and benefits as discussed with the patient in great detail. Patient is currently n.p.o. After surgery the patient will be cleared to discharge from a podiatry standpoint to follow back up with vascular surgery for intervention to the left lower extremity. Patient will have home health care for every other day dressing changes. Medicine: On board, medical management Infectious disease: On board, 600 mg p.o. linezolid every 12 hours Patient has been being followed by wound care nurse for dressing changes. Podiatry will continue to follow while patient is in house. Thank you for letting me be involved in the patient care. (2) Non-pressure chronic ulcer of other part of right foot with fat layer exposed: (3) 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 foot with fat layer exposed: (4) Other specified peripheral vascular diseases: (5) Type 2 diabetes mellitus with foot ulcer:
[2025-05-20 07:53] LABS: Anion Gap 12 (5-15); BUN 58 mg/dL (4-19); BUN/Creat Ratio 38.6 RATIO (10-20); Calcium,Total 8.8 mg/dL (7.6-11.0); Carbon Dioxide 18.3 mmol/L (21.0-32.0); Chloride 107 mmol/L (98-108); Estimated Creatinine Clearance 34.43 ml/min (50-250); Glucose 143 mg/dL (70-99); Potassium 4.0 mmol/L (3.3-5.1)
[2025-05-20 08:04] LABS: Hematocrit 27.2 % (37-47); Hemoglobin 8.9 g/dL (12.0-15.0); Immature Granulocytes Count 0.030 X10^3/uL (0.0-0.0); Mean Corp Hgb Conc 32.7 g/dL (32-36); Mean Corpuscular Volume 88.0 fL (81-99); Mean Platelet Vol. 11.8 fl (6.2-12.0); NRBC Flagged by Analyzer 0 % (0-5); Platelet Count 165 K/mm3 (150-450); RBC Distribution Width CV 15.8 % (11.6-14.6); RBC Distribution Width SD 50.9 fl (35.1-43.9); Red Blood Count 3.09 M/mm3 (4.2-5.4); White Blood Count 5.3 K/mm3 (4.4-11.0)
--- NOTE | 2025-05-20 08:04 | WOUNDNOTE ---
Pt going to surgery later today with Dr Irene. will leave dressing in place. Dr Irene had been in to talk with patient today.
--- NOTE | 2025-05-20 11:17 | CASEMGMT ---
Addendum entered by Daniela Mak 05/20/25 12:53: 1226- [facility] does not have beds available. GORGE LAUGHLIN into pt room to make pt aware. Pt states she will not go to any other facility and plans to return home after this hospital stay. Discussed if pt is safe at home. She reports falls. She states she has HHC and would like the same agency to continue. She denies need for list of other options for this. Made pt aware RN QIAN will see her after surgery and therapy works with her to determine safe dc plan. Pt again reiterates she is going home. Updated Dr. Irene. Original Note: GORGE LAUGHLIN into pt room, pt sitting up in chair just finished with therapy. Pt states she did walk in the [place] but it was difficult. Pt states she wants to [place]. Discussed with pt the concern for her going home. Pt states she would be agreeable to go to [facility] again but not a SNF. Patient was provided a list of SNF providers including quality and resource use data and consistent with the patient?s preferred geographic region, medical needs, and insurance network were provided from the [employer] Guide. Pt states she would like to speak to Dr. Irene and see how she does with therapy prior to confirming TCU.
--- NOTE | 2025-05-20 12:04 | PCM.PN.ID ---
ID ID: Route of nutrition/ use of supplements: [] Nutritional Intake: [] IV Site: [] Null Catheter: [] Patient out of bed to a chair overall clinically stable. Had a relatively uneventful night. Tolerating linezolid well. No further fevers. No gastrointestinal distress. No cardiopulmonary symptoms. Vital signs reviewed remains euthermic lungs are clear heart exam S1-S2 abdomen soft nontender Assessment & Plan Assessment/Plan (1) Type 2 diabetes mellitus with foot ulcer: PLAN: MRSA isolated from multiple wound cultures of the feet. Will continue linezolid 600 mg p.o. every 12 hours. Patient scheduled for surgery from reviewing podiatry's note plan for debridement and skin flap.
--- NOTE | 2025-05-20 12:28 | OP.PCM_ITS ---
Problems Associated Problem List Diagnoses (1) 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 foot with fat layer exposed: (2) Non-pressure chronic ulcer of other part of right foot with fat layer exposed: (3) Non-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: (4) Other specified peripheral vascular diseases: Operative Report (Standard) Operative Information Date of Procedure: 05/20/25 Pre-Operative Diagnosis: 1. Full-thickness wound, left heel 2. Full-thickness wound, left distal lateral foot 3. Full-thickness wound, left ankle 4. Full-thickness wound proximal lateral right heel 5. Peripheral arterial disease Post-Operative Diagnosis: 1. Full-thickness wound, left heel 2. Full-thickness wound, left distal lateral foot 3. Full-thickness wound, left ankle 4. Full-thickness wound proximal lateral right heel 5. 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 Type of Anesthesia: General and Local RN Documented Start/Stop Times: Operation Date: 05/20/25 15:30 Case Time Into Pre-Op 05/20/25 14:41 Anesthesia Start 05/20/25 15:41 Into Room 05/20/25 15:41 Procedure Start 05/20/25 16:00 Procedure End 05/20/25 16:46 Anesthesia End 05/20/25 16:51 Out of Room 05/20/25 16:51 Procedure Start Time: 16:00 Procedure Stop Time: 16:46 Select all DRAINS/GRAFTS/IMPLANTS that apply: Graft Graft details: Integra bilayer, ACell Special Medications: Per anesthesia Estimated Blood Loss: 25 mL Fluids Replaced: Per anesthesia Specimen collected: Yes Description of specimen(s) removed: Incision of bone cortex, left ankle after pathology have to microbiology Description of surgery: Indications For Operation: Ms. Fuller is a 75-year-old diabetic female who was admitted to [facility] for sepsis and urinary tract infection. Upon admission podiatry was consulted for concerns of bilateral full-thickness ulceration, patient is well-known to my office and I have been treating her as an outpatient with conservative excisional debridement. The patient is still awaiting vascular intervention to the left lower extremity which will be planned on May 26, 2025 at [facility]. Evaluation of the patient's bilateral foot ulceration are stable but show evidence of fibro granular tissue and needing surgical skin graft site prep with application of skin graft substitute to help speed/accelerate the healing process. We have been attempting to approve skin grafts in the office but have been delayed due to the patient's insurance. Due to the nature of the full-thickness wound to the by the lower extremity it was deemed necessary at this time to take the patient to the operating room to perform the above procedure as well as get a bone biopsy of the left ankle due to concerns of periosteal reaction on ankle radiographs to see whether or not the patient will need long-term, 4 to 6 weeks, of oral antibiotics as well as to help and accelerate and heal her chronic full- thickness wounds to the bilateral lower extremity. All risk and benefits were discussed with the patient in great detail. Patient like to move forward with bilateral lower extremity surgery. Due to nature of the patient's full- thickness wounds and the need for cleaning up and graft application the patient was taken the operating room to perform the above procedures to help accelerate and heal her chronic wounds. The nature of the problem, anticipated procedures, postop recovery/convalences and risk/complications include but not limited to infection, wound healing complications, digital amputation, hypertrophic scarring, numbness, tingling, chronic pain, CRPS, over and under correction, recurrence of deformity, DVT and or PE and the need for further surgery have been discussed in great detail with the patient. All questions have been answered to the patient's satisfaction. There are no guarantees given as to the outcome of the procedure. Description of Procedure: Under mild sedation, the patient was brought into the operating room and placed on the operating table in supine position. Once the patient was under monitored anesthesia care anesthesia, the bilateral lower extremity was blocked using approximately 20 cc0.5% Marcaine plain. No tourniquets were used for this case. Next, the bilateral lower extremity was prepped and draped in normal aseptic manner. Next, a timeout was then undertaken verifying the correct patient, extremity, visibility of preoperative markings, availability of the equipment. Procedure #1: Incision bone cortex, left ankle (CPT code: 66219) Next, attention was directed to the full-thickness wound to the level of the medial ankle. Using a Jamshidi needle and mallet incision bone cortex was obtained and passed the back table to be sent off for microbiology and culture and sensitivity. The stab incision was not closed as the area will be used for skin graft. The area was flushed with copious normal saline. Procedure #2: Surgical skin graft site prepped, left leg (CPT code: 78393) Next, attention was directed to the left leg at the level of the medial ankle and posterior leg. Using the Perceptisonix ultrasonic debrider, surgical skin graft site prep was carried down and including subcutaneous tissue to the level of the posterior leg full-thickness wound without incident. Then surgical skin graft site prep were carried down to and including subcutaneous tissue, fascia muscle and bone to the left ankle full-thickness wound without incident. After preparation there showed evidence of healthy granular tissue and sanguinous drainage. No concern for infection at this time. Procedure #3: Application of skin graft substitute, left leg (CPT code: 49490) Next, a slurry of 1000 mg of ACell graft was made into a slurry on the back table and applied to the bilateral lower extremity of full-thickness wounds. Next, Integra bilayer was cut to the size and applied left medial ankle and left posterior leg and secured in place with jacob. Procedure #4: Surgical skin graft site prep, left foot (CPT code: 54613) Next, attention was directed to the left foot at the distal lateral aspect as well as the left heel. Using the Misonix ultrasonic debrider, surgical skin graft site prep was carried down to and including subcutaneous tissue at the level of the distal lateral foot full-thickness wound as well as surgical skin graft site prep carried down to and including subcutaneous tissue, fascia and muscle at the level of the left heel full-thickness wound done without incident. After debridement there showed healthy granular tissue with sanguinous drainage to both full-thickness wounds to the left foot. No concern for infection at this time. Procedure #5: Application of skin graft substitute, left foot (CPT code: 69925) Next, the Integra bilayer was cut to size and applied to the left distal lateral foot as well as to the left heel and secured in place with jacob. Procedure #6: Surgical skin graft site prep, right foot (CPT code: 36464) Next, attention was directed to the right distal lateral full-thickness wound at the level of the heel. Using the Perceptisonix ultrasonic debrider, surgical skin graft site prep was carried down to including subcutaneous tissue at the level of the distal lateral heel right heel full-thickness wound done without incident. After debridement there showed healthy granular tissue with sanguinous drainage to the right foot full-thickness wound. No concern for infection at this time. Procedure #7: Application of skin graft substitute, right foot (CPT code: 47069) Next, Integra bilayer was cut to size and applied to the right distal lateral heel and secured in place with jacob. The patient tolerated the procedure and anesthesia well and apparent satisfactory condition and was transported to the PACU for further monitoring prior to discharge back to the floor. Vital signs stable and vascular status intact to all digits bilateral. Post Operative Plan: Weightbearing: Patient be partial weightbearing to the bilateral lower extremity. Please offload with Multi-Podus boot to the left lower extremity. Antibiotics: 600 mg linezolid DVT Prophylaxis: Plavix Null: None Dressing: Integra bilayer to bilateral lower extremity, Adaptic, dry sterile dressing single-layer Man compression bandage with light compression applied. Pain Medication: Oxycodone 5 mg tablets, Tylenol 650 mg tablets Follow-up: Patient will follow-up in 1 week to [address] Irene in private office. The patient will be getting home health care for dressing changes. All dressing changes are in the patient's discharge paperwork. From a podiatry standpoint the patient is cleared to discharge home when she is cleared by the medicine and infectious disease team. Surgical Findings: Full-thickness wound sizes: Pre and postdebridement Right foot: Proximal lateral heel: Predebridement measurement was 1.5 x 1.8 x 0.1 cm. P ostdebridement measurement is 1.6 x 2.2 x 0.1 cm. (Subcutaneous tissue) Left foot: Medial ankle: Predebridement measurement was 2.0 x 2.0 x 0.2 cm. Postdebridement measurement is 2.3 x 2.2 x 0.4 cm. (Bone) Posterior medial leg: Predebridement measurements 1.0 x 1.2 x 0.1 cm. Postdebridement measurement was 1.3 x 1.5 x 0.1 cm. (Subcutaneous tissue) Heel: Predebridement measurement was 7.0 x 5.0 x 0.1 cm. Postdebridement measurement was 7.3 x 5.2 x 0.3 cm. (Fascia and muscle) Distal lateral foot: Predebridement measurement 2.4 x 1.5 x 0.3 cm. Postdebridement measurement was 2.6 x 1.7 x 0.8 cm. (Subcutaneous tissue) Complications Complications: No Admit VTE Documentation VTE Present on Admission: No VTE Mechan Device Prophylaxis: SCD's VTE Pharm Prophylaxis ordered?: Yes
[2025-05-20] MEDS: Lactated Ringers 1,000 ML 15 ML IV (14:44)
--- NOTE | 2025-05-20 15:26 | PRE.ANES_ITS ---
ASA Classification* ASA Classification ASA Classification: 3 Assessment & Plan Anesthesia* Anesthesia Assessment Anesthesia Assessment: Discussed sedation and/or anesthesia options, risks, benefits, and alternatives with patient/parents/legal guardian/POA. Questions invited. The patient/parents/legal guardian/POA seems to understand and agrees to proceed with anesthesia plan. Reviewed the physical assessment, medical history, allergy history and patient home medications list prior to surgery/procedure/anesthetic and documented any changes. Performed airway and anesthesia risk assessments. Anesthesia Type Anesthesia Type: MAC (General as a backup plan.) History Source History Obtained from:: Patient and Chart Anesthesia Focused Assessment* Temperature: 98.5 F Pulse Rate: 70 Blood Pressure: 116/47 Respiratory Rate: 16 Pulse Ox: 100 Oxygen Delivery Method: Room Air Oxygen Flow Rate (L/min): 2 Fraction of Inspired Oxygen (FIO2): 96 Airway Assessment Mouth opens: >3 cm Mallampati Score: IV Teeth Condition: Dentures (Patient has upper and lower dentures.) Neck Range of motion (ROM): Limited ROM (Slight decrease in extension) Labs Anesthesia Preop lab: CBC WBC 5.3 K/mm3 (4.4-11.0) 05/20/25 05:30 05/20/25 RBC 3.09 M/mm3 (4.2-5.4) L 05/20/25 05:30 05/20/25 Hgb 8.9 g/dL (12.0-15.0) L 05/20/25 05:30 05/20/25 Hct 27.2 % (37-47) L 05/20/25 05:30 05/20/25 Plt Count 165 K/mm3 (150-450) 05/20/25 05:30 05/20/25 CHEMISTRY Potassium 4.0 mmol/L (3.3-5.1) 05/20/25 05:30 05/20/25 Sodium 138 mmol/L (133-145) 05/20/25 05:30 05/20/25 Magnesium 2.5 mg/dL (1.5-2.2) H 05/19/25 06:21 05/19/25 Phosphorus 3.7 mg/dL (2.7-4.5) 05/19/25 06:21 05/19/25 BUN 58 mg/dL (4-19) H 05/20/25 05:30 05/20/25 Creatinine 1.49 mg/dL (0.70-1.20) H 05/20/25 05:30 Glucose 143 mg/dL (70-99) H 05/20/25 05:30 05/20/25 POC Glucose 133 mg/dL (74-106) H 05/20/25 11:41 05/20/25 TSH < 0.01 uIU/mL (0.358-3.74) L 02/07/17 09:38 COAG PT 15.5 SECONDS (11.7-14.9) H 05/18/25 05:21 04/21 Pre-Assessment Diagnosis/Proposed Procedure Planned Operative Procedure(s): Surgical skin graft site With application of a skin graft substitute, Bilateral lower extremity incision of bone cortex, left ankle. Anesthesia History Anesthesia History - senior account executive: Anesthesia History - senior account executive Hx Hospitalization Yes: 02/2025 FELL 05/08/25 10:01 Any Problems With Anesthesia No 05/20/25 08:47 Cholinesterase deficiency No 05/20/25 08:47 You/Your Family Experience No 05/20/25 08:47 fever (hyperthermia) with Relationship Recent Exposure to Contagious No 05/20/25 08:47 Disease Does patient have nerve No 05/20/25 08:47 stimulator Patient instructed to have No 05/20/25 08:47 device shut off --Does patient have Pacemaker No 05/20/25 12:58 or ICD? When Was Last Pacemaker Check QUESTION #4 FULL TEXT: You/Your Family Experience fever (hyperthermia) with Anesthesia Last Oral Intake Last Oral intake: Last Oral Intake NPO since 00:00 05/20/25 12:58 Meds taken in AM with sips of water? Meds patient instructed to take am of surgery PONV PONV - senior account executive: PONV - senior account executive Female HX of Motion Sickness HX of N/V After Surgery Non-Smoker Duration of Surgery greater than 60 minutes Number of Risk Factors PONV Score Height & Weight Height & Weight: Anesthesia: Height & Weight Height 5 ft 6 in 05/20/25 12:58 Weight: 73.2 kg 05/20/25 12:58 Body Mass Index (BMI) 26.0 05/20/25 12:58 Respiratory Assessment Respiratory Assessment - senior account executive: Respiratory Tract Infection Hx - senior account executive Hx Respiratory Tract Infection No 05/20/25 08:47 STOP Sleep Apnea STOP Sleep Apnea - senior account executive: STOP Sleep Apnea - senior account executive Hx Hypertension Yes 05/18/25 11:21 Hx Sleep Apnea No 05/18/25 02:15 CPAP No 05/08/25 10:01 BIPAP No 05/08/25 10:01 Do you snore loudly (louder No 05/18/25 02:15 than talking or can be heard Do you often feel tired/ No 05/18/25 02:15 fatigued/ sleepy during daytime? Has anyone observed you stop No 05/18/25 02:15 breathing during sleep? STOP Results Negative 05/18/25 02:15 QUESTION #5 FULL TEXT : Do you snore loudly (louder than talking or can be heard through closed doors)? 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 Use History - senior account executive: Tobacco Use History - senior account executive Tobacco Use Cigarettes 04/02/24 09:13 Smoking Status Former smoker 05/18/25 02:15 Hx Tobacco Use No 05/18/25 02:15 Years Smoking Packs Smoked per Day Smoking Cessation Date was Yes - quit smoking within 15 05/18/25 02:15 within the last 15 years years Hx Smoking Cessation Date 01/01/13 05/18/25 02:15 Hx Smoking Cessation No 05/18/25 02:15 Counseling Hematologic Medial History Hematologic Hx - senior account executive: Hematologic Medical Hx - clinical documentation consultant Hx of Blood Transfusion Yes 05/18/25 02:15 Hx of Transfusion in last 3 No 05/18/25 02:15 Months Date of Last Transfusion (if within last 3 months) Ever experience any problems No 05/18/25 02:15 with transfusion(s)? Specify any problems Hx of Preganancy in last 3 N/A 05/18/25 02:15 Months Nurse Filling Out Transfusion LSMITH 05/18/25 02:15 & Questions: Date: 05/18/25 05/18/25 02:15 Time: 03:01 05/18/25 02:15 Patient unable to answer at this time (ie. confused, unrespo /Reproduction History /Reproductive History - senior account executive: /Reproductive Hx- senior account executive Hx Now No 05/19/25 03:12 Gestational Age (in weeks): EDC: Hx Hx Para Hx Section SAB No 05/18/25 03:12 Active Medications Active Medications: Current Medications Generic Name Dose Route Start Last Admin Trade Name Freq PRN Reason Stop Dose Admin Acetaminophen 650 mg 05/18/25 03:19 05/20/25 03:32 Acetaminophen 325 Mg Tablet PO 650 mg Q4H PRN PRN Administration Fever, pain 1-10 Al Hydroxide/Mg Hydroxide 30 ml 05/18/25 03:19 Mag Hydrox/Al Hydrox/Simeth 30 Ml Udc PO Q6H PRN PRN Gastric Burning Albuterol Sulfate 2.5 mg 05/18/25 03:19 05/18/25 19:16 Albuterol 2.5 Mg/3 Ml Vial.Neb. INHALATION 2.5 mg Q2H PRN PRN Administration Dyspnea, wheezing Albuterol/Ipratropium 3 ml 05/18/25 07:26 05/20/25 10:28 Ipratropium/Albuterol Sulfate 3 Ml Ampul.Neb INHALATION 3 ml Q4HWA.RT HADLEY Administration Ascorbic Acid 1,000 mg 05/18/25 12:00 05/20/25 11:44 Ascorbic Acid 500 Mg Tablet PO Not Given LUNCH HADLEY Aspirin 81 mg 05/18/25 22:00 05/19/25 21:07 Aspirin E.C. 81 Mg Tablet PO 81 mg QHS HADLEY Administration Atorvastatin Calcium 10 mg 05/19/25 22:00 05/19/25 21:07 Atorvastatin Calcium 10 Mg Tablet PO 10 mg QHS HADLEY Administration Clopidogrel Bisulfate 75 mg 05/18/25 10:00 05/20/25 11:23 Clopidogrel Bisulfate 75 Mg Tablet PO Not Given DAILY HADLEY Collagenase 1 applic 05/18/25 10:00 05/20/25 08:44 Collagenase 30gm Tube TOPICAL Not Given DAILY HADLEY Protocol Ferrous Sulfate 325 mg 05/18/25 12:00 05/20/25 11:44 Ferrous Sulfate 325 Mg Tablet PO Not Given DAILY@1200 HADLEY Glucagon 1 mg 05/18/25 03:19 Glucagon 1 Mg/Ml Syringe IM X1 PRN HYPOGLYCEMIA Protocol Guaifenesin 20 ml 05/18/25 03:19 Guaifenesin 10 Ml Udc (200mg/10ml) PO Q4H PRN PRN COUGH Heparin Sodium (Porcine) 5,000 unit 05/19/25 14:00 05/20/25 11:49 Heparin Injection (Vial) 5,000 Unit/Ml Vial SC Not Given Q8 HADLEY Hydralazine HCl 10 mg 05/18/25 03:19 Hydralazine 20 Mg/Ml Vial IV Q4H PRN PRN SBP > 160 Protocol Dextrose 250 mls @ 0 mls/hr 05/18/25 03:19 Dextrose 10%-Water IV .Q0M PRN HYPOGLYCEMIA Protocol As Directed Lactated Ringer's 1,000 mls @ 15 mls/hr 05/20/25 14:45 05/20/25 14:44 IV 15 mls/hr .Q48H HADLEY Administration Insulin Human Lispro 0 unit 05/18/25 07:00 05/20/25 11:43 Insulin Lispro 100 Unit/Ml Insuln.Pen SC Not Given ACHS [facility] Protocol L-Arginine/L-Glutamine/Calcium HMB 1 packet 05/18/25 17:00 05/20/25 06:39 Davion (Unflavored) Packet PO Not Given [facility] Linezolid 600 mg 05/18/25 22:00 05/20/25 11:23 Linezolid 600 Mg Tablet PO Not Given BID [facility] Melatonin 3 mg 05/18/25 03:19 Melatonin 3 Mg Tablet PO QHS PRN PRN INSOMNIA Metaxalone 400 mg 05/20/25 13:59 Metaxalone 800 Mg Tablet PO TID PRN MUSCLE SPASM Metoprolol Succinate 12.5 mg 05/19/25 13:00 05/20/25 09:39 Metoprolol(Xl)Succ 25 Mg Tablet PO Not Given DAILY [facility] Protocol Ondansetron HCl 4 mg 05/18/25 03:19 Ondansetron 4 Mg/2 Ml Vial IV Q8H PRN PRN NAUSEA/VOMITING Pregabalin 100 mg 05/19/25 15:30 05/20/25 13:40 Pregabalin 50 Mg Capsule PO Not Given TID [facility] Prochlorperazine Edisylate 5 mg 05/18/25 03:19 Prochlorperazine 10 Mg/2 Ml Vial IV Q4H PRN PRN Breakthrough nausea/vomiting Senna/Docusate Sodium 2 tablet 05/18/25 03:19 Senna/Docusate Sodium 1 Tablet PO BID PRN PRN Constipation Sodium Chloride 10 - 40 ml 05/18/25 03:04 05/19/25 06:14 0.9% Saline Lock 10 Ml Syringe IV 10 ml UD PRN Administration SALINE FLUSH PFSH Medical History Other specified peripheral vascular diseases History of MRSA infection Pressure ulcer Ambulates with cane Shortness of breath on exertion History of edema History of echocardiogram Fall 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 Chronic painful diabetic polyneuropathy MRSA (methicillin resistant staph aureus) culture positive Depression Diabetes Back pain Vertigo History of pain when walking Hypertension Arthritis Wears dentures Post-menopausal Low iron High cholesterol Easy bruising Neuropathy Dietary restriction Former smoker Cardiology follow-up encounter History of torn meniscus of left knee Carotid artery stenosis Essential hypertension Skin lesion Hammer toe of left foot Osteomyelitis Chronic kidney disease, stage 3 Atherosclerosis of coronary artery of alutiiq heart without angina pectoris Hyperlipidemia Peripheral vascular occlusive disease Hammer toe of second toe of left foot Hallux valgus (acquired), right foot Healed ulcer of left foot on examination Chronic ulcer of left foot with fat layer exposed Delayed wound healing Malnutrition Osteomyelitis of foot 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 Methicillin resistant Staphylococcus aureus infection Chronic osteomyelitis of left foot Non-healing ulcer of right foot DM2 (diabetes mellitus, type 2) Home Medications ?Medication ?Instructions ?Recorded ?Last Taken ?Type aspirin 81 mg tablet,delayed 81 mg PO QHS blood clots 01/13/14 04/14/25 History release multivitamin with folic acid 400 1 tab PO DAILY Supple ment 01/13/14 11/14/16 History mcg tablet omega-3 fatty acids-fish oil 340 1 ea PO DAILY supplem ent 06/29/16 08/27/16 History mg-1,000 mg capsule ferrous sulfate 325 mg (65 mg 325 mg PO DAILY SUPPLEME NT 08/15/18 03/08/25 History iron) tablet ascorbic acid (vitamin C) 500 mg 1,000 mg PO LUNCH Sup plement 11/25/20 03/11/25 11:50 History tablet calcium carbonate (Calcium 600) 600 mg PO DAILY supple ment 12/29/21 Unknown History clopidogrel 75 mg tablet 75 mg PO DAILY Blood clots # 90 tabs 10/23/24 04/15/25 Rx Lactobacillus acidophilus 600 mg PO QDAY gi 03/07/25 0 03/11/25 09:00 History (Acidophilus capsule) pregabalin 100 mg capsule 100 mg PO TID nerve pain 03/11/25 11:50 History simvastatin 20 mg tablet 20 mg PO QHS cholesterol #30 tabs 03/23/25 Unknown Rx nystatin 100,000 unit/gram topical 1 applic topical BI D PRN rash 05/07/25 Unknown History powder (Nyamyc) acetaminophen 650 mg 650 mg PO Q12H PRN pain 04/20 Unknown History tablet,extended release amlodipine 5 mg tablet 5 mg PO DAILY HTN #90 tabs 0 05/12/25 Unknown Rx metoprolol succinate 25 mg 12.5 mg (1/2 x 25 mg) PO DA FABIAN 05/12/25 Unknown Rx tablet,extended release 24 hr HEART RATE #45 tabs glimepiride 2 mg tablet 2 mg PO BID 05/18/25 Unknown History Allergy/AdvReac Type Severity Reaction Status Date / Time Sulfa (Sulfonamide Allergy Unknown Verified 05/17/25 21:44 Antibiotics) Family History Father CAD (coronary artery disease) Heart disease Hypertension CVA (cerebral vascular accident) Mother COPD (chronic obstructive pulmonary disease) Hypertension Heart disease Heart failure Surgical History History of cardiac catheterization History of colonoscopy History of foot surgery History of repair of left rotator cuff History of total left knee replacement (~2014) History of angioplasty of peripheral vessel (~2012) amputation left toe History of left heart catheterization (~01/20/14) Social History household members: none Smoking Status: Former smoker how long ago did patient quit smokin years ago alcohol intake: never substance use type: does not use caffeine: No Review of Systems (Anesthesia) ROS Narrative System reviewed and no additional complaints, except as documented.
--- NOTE | 2025-05-20 15:30 | FOOT_PTH ---
PATIENT: KIMBERLY NEWMAN LOC: [facility]3 U#:[id number] AGE/SX: 75/F [place] [facility] [place]: Dr. Michaela Joshua DO : 1950 BED: 1 DIS: 05/21/2025 SPEC #: [id number] RECD: 05/21/25 10:07 STATUS: DALJIT REQ #: [id number] MARIELLE: 05/20/25 15:[address]: Patel Irene DEPT: SURGICAL PATHOLOGY RECD BY: Rei Wagner ENTERED: 05/21/25 15:14 SP TYPE: FOOT OTHR DR: MD Dr. Russell Ellis MD Dr. Jordan Garrison, DO Dr. Kwaku Escobar Dr., MD Dr. Remus Ungur, Tissues: A - Foot, NOS Procedures: Decalcification bone/plaque Surgery Specimen Level V Comments: @ Ordering doctor for DEC edited from to @ by ALFREDO at 05/21/25 1514 @ Ordering doctor for SUV edited from to @ by ALFREDO at 05/21/25 1514 @ Submitting doctor edited from to @ by ALFREDO at 05/21/25 1514 HEADER OPERATION: Bilateral foot ulcer excision debridement PRE-OP DIAGNOSIS: Non-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 TISSUE SUBMITTED: A- Incisional bone cortex - left ankle MICROSCOPIC DIAGNOSIS A. Bone, cortex, ankle, left, biopsyt: * Scant fragment of bone trabeculae with focal fatty marrow and without inflammation MICROSCOPIC DESCRIPTION Slides are reviewed. GROSS DESCRIPTION A. Received in formalin labeled with the patient's name and date of . Designated as incisional bone cortex left ankle is a 0.3 x 0.2 x 0.1 cm weiss-yellow bone fragment. Entirely submitted in 1 cassette. [place] 05/21/2025 CPT:[id number]
--- NOTE | 2025-05-20 16:57 | PCM.POST.ANE ---
Anesthesia: Postop Eval I Current Vital Signs Temperature: 98.1 F Pulse Rate: 95 Blood Pressure: 96/45 Respiratory Rate: 16 Pulse Ox: 95 Oxygen Delivery Method: Room Air Assessment Airway patent: Yes Spontaneous unlabored respirations: Yes Mental status: Awake and Calm nausea: No Vomiting: No Anesthesia Complication: No Fluid Hydration Crystalloid volume administer (ml): 200 Total IV fluid infused: 200 Progress Note Anesthesia document: Postop Eval 1 completed: Yes
[2025-05-20] MEDS: Piperacil/Tazobactam 3.375 GM in 0.9% Normal Saline (50mL MB+) 50 ML IV (18:08)
[2025-05-20] MEDS: Juven (unflavored) Packet 1 PACKET PO (18:09)
--- NOTE | 2025-05-20 21:18 | POSTOPAN2_ITS ---
Anesthesia Postop Eval I Sum Postop Eval Completion status Anesthesia document: Postop Eval 1 completed: Yes Anesthesia Postop Eval I Summary Anesthesia Postop Eval I Summary: Anesthesia Postop Eval I: Assessment Summary Airway patent Yes 05/20/25 16:57 PRICING [email or web address] Spontaneous unlabored Yes 05/20/25 16:57 PRICING [email or web address] respirations Mental status Awake,Calm 05/20/25 16:57 PRICING [email or web address] nausea No 05/20/25 16:57 PRICING [email or web address] Vomiting No 05/20/25 16:57 PRICING [email or web address] Anesthesia Postop Eval I: Fluid Summary Crystalloid volume administer 200 05/20/25 16:57 PRICING [email or web address] (ml) Colloids volume administered ( ml) Blood Product volume administered (ml) Total IV fluid infused 200 05/20/25 16:57 PRICING [email or web address] Anesthesia Postop Eval I: Summary Notes Anesthesia Complication No 05/20/25 16:57 PRICING [email or web address] Anesthesia Complication Comment: Post-operative progress note Anesthesia: Postop Eval II Evaluation Mental status: Awake and Calm Pain Level: 1 nausea: No Vomiting: No Complications Anesthesia Complication: No
--- NOTE | 2025-05-20 21:18 | PCM.POSTANE2 ---
Anesthesia Postop Eval I Sum Postop Eval Completion status Anesthesia document: Postop Eval 1 completed: Yes Anesthesia Postop Eval I Summary Anesthesia Postop Eval I Summary: Anesthesia Postop Eval I: Assessment Summary Airway patent Yes 05/20/25 16:57 [email or web address] Spontaneous unlabored Yes 05/20/25 16:57 [email or web address] respirations Mental status Awake,Calm 05/20/25 16:57 [email or web address] nausea No 05/20/25 16:57 FUR [email or web address] Vomiting No 05/20/25 16:57 FUR [email or web address] Anesthesia Postop Eval I: Fluid Summary Crystalloid volume administer 200 05/20/25 16:57 FUR [email or web address] (ml) Colloids volume administered ( ml) Blood Product volume administered (ml) Total IV fluid infused 200 05/20/25 16:57 FUR [email or web address] Anesthesia Postop Eval I: Summary Notes Anesthesia Complication No 05/20/25 16:57 FUR [email or web address] Anesthesia Complication Comment: Post-operative progress note Anesthesia: Postop Eval II Evaluation Mental status: Awake and Calm Pain Level: 1 nausea: No Vomiting: No Complications Anesthesia Complication: No
[2025-05-20] MEDS: Aspirin E.C. 81 MG Tablet PO (22:15)
[2025-05-20] MEDS: Heparin Injection (Vial) 5,000 UNIT/ML VIAL 5000 UNIT SC (22:15)
[2025-05-21 03:05] VITALS: BMI 25.9
[2025-05-21 03:11] VITALS: BP 134/52; PULSE 61; RESP 15; TEMP 37.1; O2SAT 94
[2025-05-21] MEDS: Piperacil/Tazobactam 3.375 GM in 0.9% Normal Saline (50mL MB+) 50 ML IV (05:11)
[2025-05-21] MEDS: Heparin Injection (Vial) 5,000 UNIT/ML VIAL 5000 UNIT SC (05:22)
[2025-05-21 05:36] LABS: Hematocrit 25.4 % (37-47); Hemoglobin 8.0 g/dL (12.0-15.0); Immature Granulocytes Count 0.040 X10^3/uL (0.0-0.0); Mean Corp Hgb Conc 31.5 g/dL (32-36); Mean Corpuscular Volume 90.1 fL (81-99); Mean Platelet Vol. 11.8 fl (6.2-12.0); NRBC Flagged by Analyzer 0 % (0-5); Platelet Count 167 K/mm3 (150-450); RBC Distribution Width CV 15.9 % (11.6-14.6); RBC Distribution Width SD 53.0 fl (35.1-43.9); Red Blood Count 2.82 M/mm3 (4.2-5.4); White Blood Count 4.6 K/mm3 (4.4-11.0)
[2025-05-21 06:05] LABS: Anion Gap 10 (5-15); BUN 52 mg/dL (4-19); BUN/Creat Ratio 37.7 RATIO (10-20); Calcium,Total 8.9 mg/dL (7.6-11.0); Carbon Dioxide 20.9 mmol/L (21.0-32.0); Chloride 107 mmol/L (98-108); Estimated Creatinine Clearance 37.42 ml/min (50-250); Glucose 192 mg/dL (70-99); Potassium 4.3 mmol/L (3.3-5.1)
[2025-05-21 07:30] VITALS: PULSE 87; RESP 20
[2025-05-21 07:37] VITALS: PULSE 69
[2025-05-21] MEDS: Metoprolol(XL)Succ 25 MG Tablet 12.5 MG PO (07:37)
[2025-05-21] MEDS: Juven (unflavored) Packet 1 PACKET PO (07:39)
[2025-05-21 08:33] VITALS: BP 142/50; PULSE 69; RESP 16; TEMP 36.7; O2SAT 95
--- NOTE | 2025-05-21 10:12 | CASEMGMT ---
Addendum entered by Daniela Mak 05/21/25 13:28: Pt brother came to transport pt home and asked to speak to GORGE LAUGHLIN. GORGE LAUGHLIN spoke with brother. He expressed concerns with pt returning home. He is aware that the patient chose to return home. Pt was wheeled out in w/c during conversation. Pt brother requested pt stand up from w/c prior to leaving. Pt was able to do this. Pt brother took pt home. Addendum entered by Daniela Mak 05/21/25 12:26: No PA needed for Linezolid. Cost is approx $4. Addendum entered by Daniela Mak 05/21/25 12:25: TC from [facility] in pharmacy requesting wound measurements for santyl. Provided measurements but stated this is not ordered post surgery. Clarified with Dr. Joshua and . TC back to [facility] and made aware to cancel the santyl. Updated Yvonne at [facility] that santyl is not to be used on pt wounds. Addendum entered by Daniela Mak 05/21/25 12:09: Received tc from [facility], they will see pt on Sunday for SOC as pt cert period has ended. Pt aware. Addendum entered by Daniela Mak 05/21/25 11:31: Received order from Dr. Irene that wound care is to provided 3x/wk. Updated Yvonne at [facility]. Addendum entered by Daniela Mak 05/21/25 10:29: Order for [facility] includes SN, PT, OT and [employer]ER. Pt is agreeable to this. Addendum entered by Daniela Mak 05/21/25 10:27: GORGE LAUGHLIN called into pt room, pt states that her brother can only take her home today at 1pm. Pt states he will not have time to excelsior picker any rx. Discussed that pt could get her rx here at [facility] and be brought to the room if she would like, pt agreeable to this. Updated hospitalist. Pt states her brother has concerns and asked if she could get meals. Pt states she will do so with a walker. Pt has a walker at home. Discussed meal services, pt states she already spoke to someone about this and she does not want them. Pt aware that if she changes her mind regarding a SNF to notify GORGE LAUGHLIN. Pt states no way. Pt denies further needs at this time. Original Note: GORGE LAUGHLIN spoke with hospitalist regarding pt dc disposition. GORGE LAUGHLIN into pt room, pt sitting up in chair. Discussed with pt that another hospital has a TCU type floor similar to [facility] to see if she would consider this that is in network with her insurance. Pt made aware it was [facility]. Pt states that is too far for her. Pt adamantly denying any other SNF, [facility] is not in network with insurance. Pt states she wants her HHC to resume. Pt denies any other homegoing needs at this time. TC to [facility], left vm that pt is dc'ing today. Updated via backline.
[2025-05-21 11:23] VITALS: BP 111/47; PULSE 57; RESP 16; TEMP 36.5; O2SAT 96
--- NOTE | 2025-05-21 11:34 | DS.PCM_ITS ---
Providers Date of Admission: 05/18/25 Primary Care Physician: Dr. Rishi Vasquez, Consultations 05/18/25 03:19 Consult: Infectious Disease Routine Consulting Provider: Kwaku Mendoza Reason for Consult: Infected diabetic foot wounds EMERGENT Consult: No MD Notified: Yes Date Notified: 05/18/25 Time Notified: 08:30 Method of Notification: Answering Service Consult: Onc/Wound/outbound telemarketer Routine Comment: Consult: Podiatry Routine Consulting Provider: Patel Irene Reason for Consult: Infected diabetic foot wound EMERGENT Consult: No MD Notified: Yes Date Notified: 05/18/25 Time Notified: 02:10 Method of Notification: Text Consult: Vascular Surgery Routine Consulting Provider: Russell Clement Reason for Consult: Infected diabetic foot wounds, known marked BL LE PAD EMERGENT Consult: No MD Notified: Yes Date Notified: 05/18/25 Time Notified: 02:10 Method of Notification: Text 05/18/25 07:08 Consult: Director Television / Pulmonary Medicine Routine Consulting Provider: Intensivists/Pulmonary Med Reason for Consult: Sepsis EMERGENT Consult: No MD Notified: Yes Date Notified: 05/18/25 Time Notified: 07:08 Method of Notification: Verbal Reason For Visit: DIABETIC INFECTED FOOT WOUND, UTI, RHABDO Diagnosis Discharge Diagnosis (1) 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 foot with fat layer exposed: Status: Chronic Code(s): L97.522 - 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 foot with fat layer exposed (2) Non-pressure chronic ulcer of other part of right foot with fat layer exposed: Status: Chronic Code(s): L97.512 - Non-pressure chronic ulcer of other part of right foot with fat layer exposed (3) Non-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: Status: Chronic Code(s): L97.322 - Non-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 (4) Other specified peripheral vascular diseases: Status: Acute Code(s): I73.89 - Other specified peripheral vascular diseases Plan Sepsis secondary to suspected urinary tract infection - Culture shows yeast, gram-positive maycol, and gram-negative maycol - Sepsis syndrome has resolved - Continue broad-spectrum antibiotics with Zosyn and linezolid per infectious disease - CT of the abdomen pelvis performed without contrast to assess for any renal abnormalities or calculi/hydronephrosis/pyelonephritis that may need intervention due to the fact she developed sepsis - No significant abnormalities were noted SHAYY secondary to ATN - Most recent baseline serum creatinine is between 0.9 and 1.1 - on presentation serum creatinine is 1.96 - Creatinine seems to be stabilizing at 1.4-1.5 range currently being 1.49 suspect this may be her new baseline - Avoid nephrotoxins as able - Continue IV fluids as ordered Peripheral vascular disease with bilateral lower extremity ulceration and wounds - Cultures are showing Staph aureus in the form of MRSA - Vascular surgery is following - Wounds are stable and do not appear to be the etiology of her sepsis - Plan is for revascularization next Sunday as long as she is medically stable - May go home and come back as an outpatient if medically stable for discharge prior to this - Continue aspirin and Plavix Diabetic foot ulcer bilateral lower extremities - Wounds overall appear stable - will continue antibiotic regimen -Cultures with MRSA - OR later today with podiatry - Outpatient plan for revascularization is next Sunday as noted above Acute hypovolemic hyponatremia - Resolved CAD/essential hypertension/hyperlipidemia - Continue home metoprolol - Restart home atorvastatin - Continue home aspirin - Continue Plavix Chronic normocytic anemia secondary to iron deficiency - Hemoglobin appears to be stable - continue home iron supplementation and vitamin C supplementation which will assist with iron absorption COPD with history of tobacco use - Continue aerosols as ordered Anxiety/depression - Patient currently is not on any medication for this DVT prophylaxis - Continue heparin 3 times daily CODE STATUS -Full code is verified on admission Medications at Discharge Home Medications aspirin 81 mg tablet,delayed release 81 mg PO QHS blood clots 01/13/14 multivitamin with folic acid 400 mcg tablet 1 tab PO DAILY Supplement 01/13/14 omega-3 fatty acids-fish oil 340 mg-1,000 mg capsule 1 ea PO DAILY supplement 06/29/16 ferrous sulfate 325 mg (65 mg iron) tablet 325 mg PO DAILY SUPPLEMENT 08/15/18 ascorbic acid (vitamin C) 500 mg tablet 1,000 mg PO LUNCH Supplement 11/25/20 calcium carbonate (Calcium 600) 600 mg PO DAILY supplement 12/29/21 clopidogrel 75 mg tablet 75 mg PO DAILY Blood clots #90 tabs 10/23/24 Lactobacillus acidophilus (Acidophilus capsule) 600 mg PO QDAY gi 03/07/25 pregabalin 100 mg capsule 100 mg PO TID nerve pain 03/07/25 simvastatin 20 mg tablet 20 mg PO QHS cholesterol #30 tabs 03/23/25 nystatin 100,000 unit/gram topical powder (Nyamyc) 1 applic topical BID PRN rash 05/07/25 acetaminophen 650 mg tablet,extended release 650 mg PO Q12H PRN pain 05/08/25 amlodipine 5 mg tablet 5 mg PO DAILY HTN #90 tabs 05/12/25 metoprolol succinate 25 mg tablet,extended release 24 hr 12.5 mg (1/2 x 25 mg) PO DAILY HEART RATE #45 tabs 05/12/25 glimepiride 2 mg tablet 2 mg PO BID 05/18/25 collagenase clostridium histo. 250 unit/gram topical ointment (Santyl) 1 applic topical DAILY #15 grams 05/21/25 linezolid 600 mg tablet 600 mg PO BID #21 tabs 05/21/25 Hospital Course Operations - (Procedure #1: Incision bone cortex, left ankle Procedure #2: Surgical skin graft site prepped, left leg Procedure #3: Application of skin graft substitute, left leg Procedure #4: Surgical skin graft site prep, left foot Procedure #5: Application of skin graft substitute, left foot Procedure #6:) Procedures - (Chest x-ray/abdominal/pelvic CT/CTA chest/ankle x-ray/foot x-ray) Summary of Care Provided Minutes Spent on Discharge: 38 Hospital Course: Patient is a 75-year-old white female with severe peripheral vascular disease who presents emergency department [facility] on 05/18/2025 with a chief complaint of debility and weakness. She has chronic bilateral lower extremity diabetic ulcerations and foot wounds that she follows with Dr. Irene for at the wound center and podiatry office. She has a new recent ulcer at the left medial ankle where her offloading shoe had been running. She had been having difficulty ambulating a fall the day previous while she was coming to the house at about 11:15 AM. She was found later in the evening by family and they helped her to the chair. She continued to have ongoing difficulty with fever and podiatry started her on oral doxycycline and asked her evaluated at the emergency department. Vital signs on presentation showed temperature of 97.9 but she had a Tmax of 100.3. Heart rate was 71, respiratory was 18, blood pressure was 118/52 and pulse ox was 96% on room air. CBC showed a normal white count with an anemia with a hemoglobin of 8.9 which is stable and chronic. CMP showed a mild hyponatremia with a sodium of 131 serum bicarb of 17.5 and a BUN of 78 with a serum creatinine of 1.76. Blood glucose was 253. Lactic acid was less than 1. She did have a left shift in the differential. Serum creatinine was above her baseline which appears to be between 1.4 and 1.5. Urine was suggestive of infection and she was pancultured. Wound was also cultured. She did result positive for 1 of 2 blood cultures for MRSA that resulted positive on 05/21/2025. I discussed this with infectious disease. They have had her on linezolid and she has been responding clinically so they feel that she should be able to continue this at the time of discharge and go home on a course of linezolid at 600 mg p.o. twice daily for another 10 days. We wrote a prescription for 21 tablets that she will get tonight's dose in addition to those 10 days. We did draw blood cultures, and I will follow these, prior to discharge to assess for clearance and per discussion with infectious disease we may need to extend course if they remain positive but he feels confident that she will be negative based on her clinical response. Wound cultures are consistent for this as well. She was initially met in the medical floor and required transfer to the intensive care unit briefly for sepsis. She responded well to fluid resuscitation and did not require pressors. Podiatry and infectious disease, as noted above, were consulted. With the transfer to the ICU critical care medicine was consulted as well. She required ICU care for only about 24 hours and we will transfer to medical floor. She was taken to the OR by podiatry on 05/20/2025 where she had extensive I&D with bone cortex biopsy and surgical skin graft site prepped with application of skin graft in multiple areas. Postoperative dressing changes and weightbearing status are per podiatry. He will follow-up with her outpatient after discharge. She is also set up for upcoming vascular surgery on Sunday of next week 05/26/2025. Initial recommendation for her was to be discharged either SNF or transitional care unit. She was adamant that she would only go to transitional care unit. We were not able to accommodate her here as we have no beds available. We did offer [place] transitional care unit and she stated this was too far away and did not want to go there. Unfortunately, she is out of network for the transitional care unit in [place]. Given the fact that she refused to go anywhere else she was sent home health care with dressing changes per Dr. Irene's recommendation and weightbearing status per Dr. Irene's recommendation. She is to follow-up with Dr. Irene as he recommended, primary care physician in the next [address] Clement for surgery next Sunday. Patient was discharged home with prescription for antibiotics and sample. Repeat cultures were obtained prior to discharge and I will follow these for clearance to ensure a longer course of antibiotics is not required and will discuss with Dr. Clement if needed. It was initially thought that her sepsis was related to urinary tract infection as her urine looked dirty however growth is not significant enough to consider this a source of infection. Discharge diagnoses: Sepsis MRSA bacteremia SHAYY secondary to ATN Infected foot wounds Peripheral vascular disease with bilateral lower extremity ulceration and wounds Bilateral lower extremity diabetic foot ulcers Acute hypovolemic hyponatremia-resolved CAD Essential hypertension Hyperlipidemia Chronic normocytic anemia Iron deficiency COPD History of tobacco abuse Anxiety Depression Physical Exam Const alert, oriented x3 and no apparent distress; Negative for healthy appearing or well nourished Constitutional Narrative: Thin, white female, sitting up in a chair at the bedside, sitting up in a chair at the bedside getting patient ready, appears comfortable, nontoxic General Appearance: cooperative, comfortable, well kempt and well developed Exam Limitations: no limitations HEENT normocephalic, head/scalp atraumatic, hearing grossly normal bilaterally and moist oral mucous membranes HEENT Narrative: Dentures in place, Mallampati 2, no thrush Eyes Eyes Narrative: Conjunctiva are mildly pale bilaterally, no scleral icterus Neck supple Neck Narrative: Trachea midline, no thyroid enlargement Resp normal respiratory effort, no retractions, no use of accessory muscles and clear to auscultation bilaterally Resp Narrative: Diffusely diminished but clear Auscultation: Negative for rales, rhonchi or wheezes Cardio regular rate, regular rhythm, S1 normal heart sound, S2 normal heart sound, no murmurs, no rub, no gallops and no clicks GI normal to inspection, nondistended, normoactive bowel sounds, soft to palpation and non-tender Extremity no clubbing, cyanosis or edema Extremity Narrative: Diminished cap refill bilateral lower extremities left greater than right, radial pulses are 2+ bilaterally Skin Skin Narrative: Patient with offloading brace left lower extremity for wounds, 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 with multiple amputations, decreased cap refill as noted above, postoperative dressing in place bilateral lower extremities Neuro oriented x3, moves all extremities and no focal motor deficits Neuro Narrative: Generalized weakness no focal deficit Speech: speech normal Psych affect normal Psych Narrative: Pleasant, interacts appropriately Weight / BMI Weight Weight: 73.1 kg Body Mass Index (BMI) 25.9 ABG / Lab / Microbiology Data 05/21/25 04:27 05/21/25 04:27 Laboratory: Laboratory Results - last 24 hr 05/20/25 11:41: POC Glucose 133 H 05/20/25 17:42: POC Glucose 119 H 05/20/25 22:19: POC Glucose 229 H 05/21/25 04:27: WBC 4.6, RBC 2.82 L, Hgb 8.0 L, Hct 25.4 L, MCV 90.1, MCH 28.4, MCHC 31.5 L, RDW Std Deviation 53.0 H, RDW Coeff of Jorgito 15.9 H, Plt Count 167, MPV 11.8, Immature Gran % (Auto) 0.900, Neut % (Auto) 64.8, Lymph % (Auto) 17.7 L, [place] % (Auto) 13.6 H, Eos % (Auto) 2.6, Baso % (Auto) 0.4, Absolute Neuts (auto) 3.0, Absolute Lymphs (auto) 0.82 L, Nucleated RBC % 0, Sodium 138, Potassium 4.3, Chloride 107, Carbon Dioxide 20.9 L, Anion Gap 10, BUN 52 H, C reatinine 1.37 H, Estim Creat Clear Calc 37.42 L, Est GFR (MDRD) Non-Af 41 L, B UN/Creatinine Ratio 37.7 H, Glucose 192 H, Calcium 8.9 05/21/25 06:34: POC Glucose 160 H Microbiology: Microbiology 05/20/25 Unknown Bone - Ankle Gram Stain - Final 05/20/25 Unknown Bone - Ankle Wound Culture - Preliminary Gram positive organism 05/18/25 00:50 Urine Catheter - Catheter Urine Culture - Preliminary Gram negative maycol Gram positive maycol Yeast Like Organism 05/17/25 22:33 Blood Culture (Wb) - Right Wrist Blood Culture - Final Meth. resistant Staph. aureus 05/17/25 22:54 Blood Culture (Wb) - Left Forearm Blood Culture - Preliminary No growth in 48 hours. 05/18/25 04:00 Wound - Right Foot Gram Stain - Final 05/18/25 04:00 Wound - Right Foot Wound Culture - Final Meth. resistant Staph. aureus Coag Negative Staph 05/18/25 04:00 Wound - Right Foot Skin and Soft Tissue MRSA/MSSA (PCR - Final Meth. resistant Staph. aureus D/C Instructions Discharge Diet: Low fat / Low cholesterol and 1800 Calorie Control Diet Discharge Activity: Use Walker (Weightbearing status as noted in discharge instructions) DC O2, CPAP, BIPAP Needs Home O2 Discharge instructions: No DC home with Oxygen: No Meaningful Use Info Meaningful Use Meaningful Use Diagnoses (Choose all that apply): None applicable Ischemic Stroke Statin Dosing Therapy Reference: STATIN DOSE THERAPY REFERENCE: * Patients > 75 years receive moderate or high dose statin therapy. * Patients 75 years or YOUNGER should receive HIGH intensity statin dose unless contraindicated. You will be required to document reason for non-treatment if statin daily dose does not meet guidelines. HIGH DOSE STATIN THERAPY DAILY Atorvastatin > than or = to 40 mg Rosuvastatin > than or = to 20 mg Amlodipine + Atorvastatin > than or = to 2.5/40 mg Ezetimibe + Simvastatin 10/80 mg Simvastatin 80mg Discharge Plan Admission Admit Date/Time: 05/18/25 02:09 Primary Reason for Your Visit: Generalized Weakness/Debility Attending Provider: Michaela Joshua Primary Care Provider: Rishi Vasquez Consulting Providers: Maddie Merchant; Kwaku Mendoza; Patel Irene; Russell Clement Instructions Additional Instructions / Restrictions: Bilateral wound care dressings: 1. Remove all outer dressing and soft dressing to the level of the Adaptic. 2. Gently peel off the Adaptic without disturbing the underlying Integra graft. 3. Do not remove the Integra graft as it is secured with jacob. There could be some mild odor noticed but this is completely normal with this type of graft. Gently clean off the bilateral foot and ankle with sterile saline and do not disturb the graft please. 4. Cover the graft on the bilateral lower extremity with Adaptic, cover with 4 x 4's, secured in place with light Kerlix wrap, under casting to the bilateral lower extremity and secured in place with two 4 inch Marino bandages from sulcus of toes to mid calf bilateral, With light compression. We need to make sure that we are controlling her swelling to the left and right lower extremities. Patient is planning to have vascular surgery with revascularization on 05/26/2025. Weightbearing for both legs as noted below -RLE with surgical shoe full weight bearing/weightbearing as tolerated with surgical shoe on -Weightbearing on left lower extremity toe-touch touch weightbearing with offloading boot in place Discharge Orders/Prescriptions Prescriptions: New Santyl 250 unit/gram Ointment 1 applic topical DAILY Qty: 15 0RF Protocol: *Topical Application Instructions APPLICATION INSTRUCTIONS: apply nickel thick layer to left posterior lower leg, left medial ankle, and left heel Rx Instructions: Apply to wound as instructed linezolid 600 mg Tablet 600 mg PO BID Qty: 21 0RF Continued calcium carbonate [Calcium 600] 600 mg calcium (1,500 mg) tablet 600 mg PO DAILY nystatin [Nyamyc] 100,000 unit/gram powder 1 applic topical BID PRN (Reason: rash) Protocol: *Topical Application Instructions APPLICATION INSTRUCTIONS: apply to abdominal folds, under breasts aspirin 81 MG tablet 81 mg PO QHS multivitamin with folic acid 1 TABLET tablet 1 tab PO DAILY Patient Comments: vitamin supplement ascorbic acid (vitamin C) 500 mg tablet 1,000 mg PO LUNCH Patient Comments: supplement omega-3 fatty acids-fish oil 1 EACH capsule 1 ea PO DAILY Patient Comments: supplement ferrous sulfate 325 MG tablet 325 mg PO DAILY pregabalin 100 mg capsule 100 mg PO TID Acidophilus Capsule 600 mg PO QDAY acetaminophen 650 mg tablet extended release 650 mg PO Q12H PRN (Reason: pain) glimepiride 2 mg tablet 2 mg PO BID clopidogrel 75 mg tablet 75 mg PO DAILY Qty: 90 3RF Patient Comments: ask about stopping simvastatin 20 mg tablet 20 mg PO QHS Qty: 30 11RF amlodipine 5 mg tablet 5 mg PO DAILY Qty: 90 3RF metoprolol succinate 25 mg tablet extended release 24 hr 12.5 mg PO DAILY Qty: 45 3RF Referrals / Follow Up: Rishi Vasquez DO [Primary Care Provider] - Within 2 Weeks Patel Irene DPM [Med Staff - Active Staff] - See Referral Note (Per Dr. Irene recommendations) Russell Clement MD [Med Staff - Active Staff] - See Referral Note (For surgery on Sunday) Disposition Disposition (needs filled in before D/C Order can be placed): Home Health Service Charges/Coding Visit Charges Inpatient E&M: 41028 Disch Hosp >30min
== END 2025-05-21 13:15 | disposition home health service (06) | DRG 622 ==
LOC: ED 05-18 01:48 → MS3 05-18 02:22 → ICU 05-18 07:44 → MS3 05-20 21:49
PROVIDERS: Podiatrist Foot & Ankle Surgery; Admitting Provider Family Medicine; Emergency Provider Emergency Medicine; PCP Student in an Organized Health Care Education/Training Program; Referring Provider Emergency Medicine; Visit Provider Internal Medicine
PROC: 0JBQ0ZZ Excision of Right Foot Subcutaneous Tissue and Fascia, Open Approach (ICD-10-PCS; principal; 2025-05-20 15:15)
DX: E11.621 Type 2 diabetes mellitus with foot ulcer (principal); J96.01 Acute respiratory failure with hypoxia; A41.02 Sepsis due to Methicillin resistant Staphylococcus aureus; M62.82 Rhabdomyolysis; E87.1 Hypo-osmolality and hyponatremia; L97.322 Non-pressure chronic ulcer of left ankle with fat layer exposed; N39.0 Urinary tract infection, site not specified; N17.0 Acute kidney failure with tubular necrosis; E86.0 Dehydration; I70.235 Atherosclerosis of native arteries of right leg with ulceration of other part of foot; J44.9 Chronic obstructive pulmonary disease, unspecified; N18.30 Chronic kidney disease, stage 3 unspecified; E11.622 Type 2 diabetes mellitus with other skin ulcer; D50.9 Iron deficiency anemia, unspecified; F32.A Depression, unspecified; I12.9 Hypertensive chronic kidney disease with stage 1 through stage 4 chronic kidney disease, or unspecified chronic kidney disease; E11.22 Type 2 diabetes mellitus with diabetic chronic kidney disease; E86.1 Hypovolemia; I70.245 Atherosclerosis of native arteries of left leg with ulceration of other part of foot; E11.40 Type 2 diabetes mellitus with diabetic neuropathy, unspecified; E11.51 Type 2 diabetes mellitus with diabetic peripheral angiopathy without gangrene; W19.XXXA Unspecified fall, initial encounter; E78.5 Hyperlipidemia, unspecified; I25.10 Atherosclerotic heart disease of native coronary artery without angina pectoris; F41.9 Anxiety disorder, unspecified; E87.8 Other disorders of electrolyte and fluid balance, not elsewhere classified; Z89.422 Acquired absence of other left toe(s); I95.2 Hypotension due to drugs; L97.522 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 foot with fat layer exposed; L97.512 Non-pressure chronic ulcer of other part of right foot with fat layer exposed; F17.201 Nicotine dependence, unspecified, in remission; I70.234 Atherosclerosis of native arteries of right leg with ulceration of heel and midfoot; I70.244 Atherosclerosis of native arteries of left leg with ulceration of heel and midfoot; R74.8 Abnormal levels of other serum enzymes; T36.95XA Adverse effect of unspecified systemic antibiotic, initial encounter; Y92.009 Unspecified place in unspecified non-institutional (private) residence as the place of occurrence of the external cause; Z86.14 Personal history of Methicillin resistant Staphylococcus aureus infection; Z79.82 Long term (current) use of aspirin; Z79.84 Long term (current) use of oral hypoglycemic drugs; Z79.899 Other long term (current) drug therapy; Z79.02 Long term (current) use of antithrombotics/antiplatelets; Z98.62 Peripheral vascular angioplasty status
CPT/HCPCS: 36415; 71045; 71275; 73610; 73630; 74176; 80048; 80053; 81001; 82550; 82962; 83036; 83605; 83735; 84100; 85025; 85610; 85652; 85730; 87040; 87070; 87075; 87077; 87086; 87088; 87102; 87149; 87176; 87186; 87205; 87206; 87640; 88307; 88311; 93005; 94640; 94668; 94762; 97162; 97166; 97530; 97535; 97802; 97803; 99285; P9612; Q9967; A4216; J2405

== ENCOUNTER 2025-05-22 11:04 | Inpatient (IN) | payer MEDICARE, SELFPAY ==
[2025-05-22 11:05] VITALS: BP 124/74; PULSE 81; RESP 18; TEMP 36.6; O2SAT 98
[2025-05-22 11:43] VITALS: BMI 25.9
--- NOTE | 2025-05-22 12:02 | EKG12_ITS ---
Test Reason : Blood Pressure : */* mmHG Vent. Rate : 85 BPM Atrial Rate : 85 BPM P-R Int : 144 ms QRS Dur : 90 ms QT Int : 382 ms P-R-T Axes : 56 -16 84 degrees QTcB Int : 454 ms Normal sinus rhythm Septal infarct , age undetermined Abnormal ECG Confirmed by ANGELI LUNDBERG, LOVE ([id number]), fan mail editor NOEMI FLANAGAN ([id number]) on 05/25/2025 10:28:50 AM Referred By: Wilberto Suazo Confirmed By: LOVE SUH MD
--- NOTE | 2025-05-22 12:05 | EDS_ITS ---
HPI History of Present Illness Chief Complaint: Fall Narrative Narrative: Patient is a 75-year-old female with past medical history of diabetes, recent surgery on her foot for ulcers, depression, vertigo, neuropathy, carotid artery stenosis, hyperlipidemia, type 2 diabetes who presented to the emergency department chief complaint of fall. Patient states that she woke up this morning use her walker to walk on the chair went to sit down and slid out of the chair was on the ground. States that she sat there for an extended period of time and states that she could not get up therefore EMS was called and she was brought here for the evaluation management. Patient states that she just had a foot surgery and was recently released from the hospital. Patient states that she does feel overall tired. 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 Chronic painful diabetic polyneuropathy MRSA (methicillin resistant staph aureus) culture positive Depression Diabetes Back pain Vertigo History of pain when walking Hypertension Arthritis Wears dentures Post-menopausal Low iron High cholesterol Easy bruising Neuropathy Dietary restriction Former smoker Cardiology follow-up encounter History of torn meniscus of left knee Carotid artery stenosis Essential hypertension Skin lesion Hammer toe of left foot Osteomyelitis Chronic kidney disease, stage 3 Atherosclerosis of coronary artery of [place] heart without angina pectoris Hyperlipidemia Peripheral vascular occlusive disease Hammer toe of second toe of left foot Hallux valgus (acquired), right foot Healed ulcer of left foot on examination Chronic ulcer of left foot with fat layer exposed Delayed wound healing Malnutrition Osteomyelitis of foot 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 Methicillin resistant Staphylococcus aureus infection Chronic osteomyelitis of left foot Non-healing ulcer of right foot DM2 (diabetes mellitus, type 2) Home Medications ?Medication ?Instructions ?Recorded ?Last Taken ?Type aspirin 81 mg tablet,delayed 81 mg PO QHS blood clots 01/13/14 04/14/25 History release multivitamin with folic acid 400 1 tab PO DAILY Supple ment 01/13/14 11/14/16 History mcg tablet omega-3 fatty acids-fish oil 340 1 ea PO DAILY supplem ent 06/29/16 08/27/16 History mg-1,000 mg capsule ferrous sulfate 325 mg (65 mg 325 mg PO DAILY SUPPLEME NT 08/15/18 03/08/25 History iron) tablet ascorbic acid (vitamin C) 500 mg 1,000 mg PO LUNCH Sup plement 11/25/20 03/11/25 11:50 History tablet calcium carbonate (Calcium 600) 600 mg PO DAILY supple ment 12/29/21 Unknown History clopidogrel 75 mg tablet 75 mg PO DAILY Blood clots # 90 tabs 10/23/24 04/15/25 Rx Lactobacillus acidophilus 600 mg PO QDAY gi 03/07/25 0 03/11/25 09:00 History (Acidophilus capsule) pregabalin 100 mg capsule 100 mg PO TID nerve pain 03/11/25 11:50 History simvastatin 20 mg tablet 20 mg PO QHS cholesterol #30 tabs 03/23/25 Unknown Rx nystatin 100,000 unit/gram topical 1 applic topical BI D PRN rash 05/07/25 Unknown History powder (Nyamyc) acetaminophen 650 mg 650 mg PO Q12H PRN pain 04/20 Unknown History tablet,extended release amlodipine 5 mg tablet 5 mg PO DAILY HTN #90 tabs 0 05/12/25 Unknown Rx metoprolol succinate 25 mg 12.5 mg (1/2 x 25 mg) PO DA FABIAN 05/12/25 Unknown Rx tablet,extended release 24 hr HEART RATE #45 tabs glimepiride 2 mg tablet 2 mg PO BID 05/18/25 Unknown History collagenase clostridium histo. 250 1 applic topical DA FABIAN #15 grams 05/21/25 Unknown Rx unit/gram topical ointment (Santyl) linezolid 600 mg tablet 600 mg PO BID #21 tabs 05/21 Unknown Rx Allergy/AdvReac Type Severity Reaction Status Date / Time Sulfa (Sulfonamide Allergy Unknown Verified 05/22/25 11:05 Antibiotics) Family History Father CAD (coronary artery disease) Heart disease Hypertension CVA (cerebral vascular accident)
--- NOTE | 2025-05-22 12:05 | EX.ED.DYSGE1 ---
HPI History of Present Illness Chief Complaint: Fall Narrative Narrative: Patient is a 75-year-old female with past medical history of diabetes, recent surgery on her foot for ulcers, depression, vertigo, neuropathy, carotid artery stenosis, hyperlipidemia, type 2 diabetes who presented to the emergency department chief complaint of fall. Patient states that she woke up this morning use her walker to walk on the chair went to sit down and slid out of the chair was on the ground. States that she sat there for an extended period of time and states that she could not get up therefore EMS was called and she was brought here for the evaluation management. Patient states that she just had a foot surgery and was recently released from the hospital. Patient states that she does feel overall tired. 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 polyneuropathy MRSA (methicillin resistant staph aureus) culture positive Depression Diabetes Back pain Vertigo History of pain when walking Hypertension Arthritis Wears dentures Post-menopausal Low iron High cholesterol Easy bruising Neuropathy Dietary restriction Former smoker Cardiology follow-up encounter History of torn meniscus of left knee Carotid artery stenosis Essential hypertension Skin lesion Hammer toe of left foot Osteomyelitis Chronic kidney disease, stage 3 Atherosclerosis of coronary artery of [place] heart without angina pectoris Hyperlipidemia Peripheral vascular occlusive disease Hammer toe of second toe of left foot Hallux valgus (acquired), right foot Healed ulcer of left foot on examination Chronic ulcer of left foot with fat layer exposed Delayed wound healing Malnutrition Osteomyelitis of foot 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 Methicillin resistant Staphylococcus aureus infection Chronic osteomyelitis of left foot Non-healing ulcer of right foot DM2 (diabetes mellitus, type 2) Home Medications ?Medication ?Instructions ?Recorded ?Last Taken ?Type aspirin 81 mg tablet,delayed 81 mg PO QHS blood clots 01/13/14 04/14/25 History release multivitamin with folic acid 400 1 tab PO DAILY Supplement 01/13/14 11/14/16 History mcg tablet omega-3 fatty acids-fish oil 340 1 ea PO DAILY supplement 06/29/16 08/27/16 History mg-1,000 mg capsule ferrous sulfate 325 mg (65 mg 325 mg PO DAILY SUPPLEMENT 08/15/18 03/08/25 History iron) tablet ascorbic acid (vitamin C) 500 mg 1,000 mg PO LUNCH Supplement 11/25/20 03/11/25 11:50 History tablet calcium carbonate (Calcium 600) 600 mg PO DAILY supplement 12/29/21 Unknown History clopidogrel 75 mg tablet 75 mg PO DAILY Blood clots #90 tabs 10/23/24 04/15/25 Rx Lactobacillus acidophilus 600 mg PO QDAY gi 03/07/25 03/11/25 09:00 History (Acidophilus capsule) pregabalin 100 mg capsule 100 mg PO TID nerve pain 03/07/25 03/11/25 11:50 History simvastatin 20 mg tablet 20 mg PO QHS cholesterol #30 tabs 03/23/25 Unknown Rx nystatin 100,000 unit/gram topical 1 applic topical BID PRN rash 05/07/25 Unknown History powder (Nyamyc) acetaminophen 650 mg 650 mg PO Q12H PRN pain 05/08/25 Unknown History tablet,extended release amlodipine 5 mg tablet 5 mg PO DAILY HTN #90 tabs 05/12/25 Unknown Rx metoprolol succinate 25 mg 12.5 mg (1/2 x 25 mg) PO DAILY 05/12/25 Unknown Rx tablet,extended release 24 hr HEART RATE #45 tabs glimepiride 2 mg tablet 2 mg PO BID 05/18/25 Unknown History collagenase clostridium histo. 250 1 applic topical DAILY #15 grams 05/21/25 Unknown Rx unit/gram topical ointment (Santyl) linezolid 600 mg tablet 600 mg PO BID #21 tabs 05/21/25 Unknown Rx Allergy/AdvReac Type Severity Reaction Status Date / Time Sulfa (Sulfonamide Allergy Unknown Verified 05/22/25 11:05 Antibiotics) Family History Father CAD (coronary artery disease) Heart disease Hypertension CVA (cerebral vascular accident) Mother COPD (chronic obstructive pulmonary disease) Hypertension Heart disease Heart failure Surgical History History of cardiac catheterization History of colonoscopy History of foot surgery History of repair of left rotator cuff History of total left knee replacement (~2014) History of angioplasty of peripheral vessel (~2012) amputation left toe History of left heart catheterization (~01/20/14) Social History household members: none Smoking Status: Former smoker how long ago did patient quit smokin years ago alcohol intake: never substance use type: does not use caffeine: No ROS ROS ED ROS Narrative Constitutional: Denies any fevers, chills, headaches, lightness, dizziness Eyes: Denies change in vision double vision blurry vision Cardiovascular: Denies chest pain Respiratory: Denies coughing wheezing shortness of breath Abdomen: Denies abdominal pain nausea vomit diarrhea : Denies urinary symptoms Neurological: Denies numbness, aches, tingling Musculoskeletal: Denies back pain Skin: Denies rashes or lesions EXAM Physical Exam Narrative Exam Narrative: General: Patient was lying in bed rest comfortably did not appear to be in acute distress Head: Atraumatic, normocephalic Eyes: PERRL bilaterally, EOMI blood, no conjunctival injection noted Neck: Soft, supple, trachea midline, no tenderness palpation midline of cervical spine Cardiovascular: Regular rate and rhythm no murmurs gallops rubs noted Respiratory: Clear to auscultation bilaterally no rales rhonchi or wheeze noted Abdomen: Soft, nondistended, nontender to palpation Musculoskeletal: All bony prominences palpated joints taken full range of motion no pain elicited Extremities: +4/5 strength noted in the bilateral upper and lower extremities, radial pulses +2/4 in the bilateral extremities, no pedal edema on exam Neurological: Patient 5 commands that she was at [facility] year is 2024 sensation grossly intact Skin: Warm, dry, intact no rashes or lesions noted Const Vital Signs: 05/22/25 11:05 05/22/25 11:42 Temperature 98 F Temperature Source Temporal Pulse Rate 81 Respiratory Rate 18 Blood Pressure 124/74 H Blood Pressure Mean 90 Pulse Ox 98 Oxygen Delivery Method Room Air Room Air MDM MDM MDM Narrative Medical decision making narrative: Patient is a 75-year-old female who presented to the emergency department chief complaint of falling out of her chair. She once again states that she slid on her butt out of her chair did not hit her head did not pass out remembers the entire event she just felt too weak to get up therefore EMS was called to have her brought here for further evaluation management. On the differential diagnose includes but not limited to generalized weakness, electrolyte abnormality, UTI. Once workup is obtained reviewed she will be reevaluated. Patient be given IV fluids. Patient CBC reviewed showed no evidence leukocytosis white blood count normal 7.2, hemoglobin stable at 9.5 this is improved from a blood drawl from yesterday, platelet count was normal at 214. Patient sodium normal 140, potassium of 4.3, creatinine was 1.22 she has underlying chronic kidney disease remained stable. Patient AST and ALT are 58 and 41 respectively. Patient's EKG showed sinus rhythm with a rate of 85 bpm. At this point in time after discussion with the patient and her brother at bedside they note that she is not safe to go home and they are in agreement with placement. Discussed case with hospitalist Dr. Suazo who accept patient for admission. Patient notified as well as brother at bedside they are agreeable. Lab Data Labs: Laboratory Results - last 24 hr 05/22/25 12:15 WBC 7.2 RBC 3.28 L Hgb 9.5 L Hct 29.6 L MCV 90.2 MCH 29.0 MCHC 32.1 RDW Std Deviation 52.4 H RDW Coeff of Jorgito 15.8 H Plt Count 214 MPV 10.9 Immature Gran % (Auto) 1.300 H Neut % (Auto) 78.4 H Lymph % (Auto) 9.1 L [place] % (Auto) 9.0 Eos % (Auto) 1.5 Baso % (Auto) 0.7 Absolute Neuts (auto) 5.6 Absolute Lymphs (auto) 0.65 L Nucleated RBC % 0 Sodium 140 Potassium 4.3 Chloride 109 H Carbon Dioxide 19.0 L Anion Gap 13 BUN 56 H Creatinine 1.22 H Estim Creat Clear Calc 42.00 L Est GFR (MDRD) Non-Af 47 L BUN/Creatinine Ratio 45.7 H Glucose 216 H Calcium 9.2 Total Bilirubin 0.33 AST 58 H ALT 41 H Alkaline Phosphatase 55 Total Protein 6.2 Albumin 2.9 L Globulin 3.3 Albumin/Globulin Ratio 0.9 Discharge Plan Triage Chief Complaint: Fall ED Provider: Heron Wilde Dx/Rx/DC Orders Clinical Impression: Generalized weakness, Type 2 diabetes mellitus with foot ulcer, Non-healing ulcer of right foot, Fall Prescriptions: No Action calcium carbonate [Calcium 600] 600 mg calcium (1,500 mg) tablet 600 mg PO DAILY nystatin [Nyamyc] 100,000 unit/gram powder 1 applic topical BID PRN (Reason: rash) Protocol: *Topical Application Instructions APPLICATION INSTRUCTIONS: apply to abdominal folds, under breasts aspirin 81 MG tablet 81 mg PO QHS multivitamin with folic acid 1 TABLET tablet 1 tab PO DAILY Patient Comments: vitamin supplement ascorbic acid (vitamin C) 500 mg tablet 1,000 mg PO LUNCH Patient Comments: supplement omega-3 fatty acids-fish oil 1 EACH capsule 1 ea PO DAILY Patient Comments: supplement ferrous sulfate 325 MG tablet 325 mg PO DAILY pregabalin 100 mg capsule 100 mg PO TID Acidophilus Capsule 600 mg PO QDAY acetaminophen 650 mg tablet extended release 650 mg PO Q12H PRN (Reason: pain) glimepiride 2 mg tablet 2 mg PO BID Santyl 250 unit/gram Ointment 1 applic topical DAILY Qty: 15 0RF Protocol: *Topical Application Instructions APPLICATION INSTRUCTIONS: apply nickel thick layer to left posterior lower leg, left medial ankle, and left heel Rx Instructions: Apply to wound as instructed linezolid 600 mg Tablet 600 mg PO BID Qty: 21 0RF clopidogrel 75 mg tablet 75 mg PO DAILY Qty: 90 3RF Patient Comments: ask about stopping simvastatin 20 mg tablet 20 mg PO QHS Qty: 30 11RF amlodipine 5 mg tablet 5 mg PO DAILY Qty: 90 3RF metoprolol succinate 25 mg tablet extended release 24 hr 12.5 mg PO DAILY Qty: 45 3RF Primary Care Provider: Rishi Vasquez Referrals: Rishi Vasquez DO [Primary Care Provider] - Print Language: [place] Disposition Disposition: Acute Care Hospital [facility]
--- OUTSIDE RECORDS SUMMARY | 2025-05-22 12:09 | XMS RPT_ITS | CCD ---
Author Organization [facility] CliniSyct Care Team Providers Care Supply Chain Analyst Name Role Phone Ray Ochoa Unavailable Unavailable Lila PENNINGTON, Aileen Peterson Unavailable Unavailable Ray Ochoa Unavailable Unavailable Kwaku Moscoso MD Unavailable Sukumar LUNDBERG, Marly Villavicencio Unavailable Lucía BARAJAS, Rebekah Villavicencio Unavailable Gaye Jasmine Unavailable Unavailable Shaina Serna LPN Unavailable Unavailable Dr. Rishi Vasquez Primary Care Provider Dr. Rishi Vasquez Referring Provider Cebumelinda, Dr. Kwaku Abraham Attending Provider Cedaniel, Dr. Kwaku Abraham Other Provider Roof MEDICAL AIDE, YULY Tripathi Attending Provider Rishi Vasquez DO Primary Care Provider Dr. Rishi Vasquez Primary Care Provider Dr. Kwaku Moscoso Attending Provider Dr. Kwaku Moscoso Referring Provider Dr. Rishi Vasquez Referring Provider Rishi Vasquez DO Primary Care Provider Roof MEDICAL AIDE, YULY Tripathi Attending Provider Dr. Rishi Vasquez Primary Care Provider CeDr. Kwaku sanchez Attending Provider Danis, Dr. Kwaku Abraham Referring Provider Dr. Rishi Vasquez Referring Provider Roof MEDICAL AIDE, MEDICAL AIDEFavio Tripathi Attending Provider Dr. Rishi Vasquez Primary [...] Provider Vasquez, Dr. Blackwell Referring Provider Roof MEDICAL AIDE, MEDICAL AIDEFavio Tripathi Attending Provider CeDr. Kwaku sanchez Attending [...] Provider Dr. Elyssa Fierro Attending Provider Dmitry 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.Clary FLORES Unavailable Violeta CROSS.Yani FLORES Unavailable Dr. Rishi Vasquez DO Primary Care Provider Pedro DO, Dr. Blackwell Attending Provider Pedro EUCEDA, Dr. Blackwell Referring Provider Intervale DPM, Dr. Taylor Attending Provider Intervale DPM, Dr. Taylor Referring Provider Irene DPM, Dr. Sweeney Attending Provider Urbano LUNDBERG, Dr. Wells Attending Provider Jamal DPM, Dr. Wagoner Attending Provider Jamal DPM, Dr. Wagoner Referring Provider Irene DPM, Dr. Sweeney Referring Provider Rosita DO, Dr. Orellana Emergency Provider [phone] Shonda LUNDBERG, Dr. Maddie Lawrence Admit Provider Shonda LUNDBERG, Dr. Maddie Lawrence Attending Provider Shonda LUNDBERG, Dr. Maddie Lawrence Referring Provider Pedro EUCEDA, Dr. Blackwell Primary Care Provider [phone] Pedro DO, Dr. Blackwell Attending Provider Pedro [...] Servando LUNDBERG, Dr. Phong Benítez Attending Provider Seravndo LUNDBERG, Dr. Phong Benítez Referring Provider Abena Baxter Other Provider Servando LUNDBERG, Dr. Phong Benítez Other Provider 1([facility])[phone] Urbano LUNDBERG, Dr. Wells Referring Provider 1([facility])[phone] Pedro EUCEDA, Dr. Blackwell Primary Care Provider [phone] Pedro EUCEDA, Dr. Blackwell Attending Provider 1([facility] )[phone] Pedro EUCEDA, Dr. Blackwell Referring Provider 1([facility] )[phone] Haseeb DPM, Dr. Taylor Attending Provider 1([facility] )[phone] Haseeb DPM, Dr. Taylor Referring Provider 1([facility] )[phone] Pedro EUCEDA, Dr. Blackwell Primary Care Provider Pedro EUCEDA, Dr. Blackwell Attending Provider 1([facility] )[phone] Pedro DO, Dr. Blackwell Referring Provider 1([facility] )[phone] Macarena VYAS, Abena Referring Provider 1([facility])-[phone] Pedro EUCEDA, Dr. Blackwell Primary Care Provider Teto STEVENSONM, Dr. Sweeney Attending Provider Víctor LUNDBERG, Dr. Wagoner Attending Provider 1([facility])[phone] Víctor LUNDBERG, Dr. Wagoner Referring Provider 1([facility])[phone] Pedro EUCEDA, Dr. Blackwell Primary Care Provider Urbano LUNDBERG, Dr. Wells Attending Provider 1([facility]) 5710 Performed By: #### L 100.0100, L500.2500 ####[facility] [address] [place], [address] GAP Normal 5-15 [facility] Comment on above: Result Comment: Canc elled via OM: Order cancelled - Patient discharged Performed By: #### L 100.0100, L500.2500 ####[facility] [address] [place], [address] GLU Normal 70-99 [facility] Comment on above: Result Comment: Canc elled via OM: Order cancelled - Patient discharged Performed By: #### L 100.0100, L500.2500 ####[facility] [address] [place], [address] Potassium Normal 3.3-5.1 [facility] Comment on above: Result Comment: Canc elled via OM: Order cancelled - Patient discharged Performed By: #### L 100.0100, L500.2500 ####[facility] [address] [place], [address] Basic Metabolic Profile (BMP) Normal 133-145 [facility] Comment on above: Result Comment: Canc elled via OM: Order cancelled - Patient discharged Performed By: #### L 100.0100, L500.2500 ####[facility] [address] [place], [address] Bedside Glucoseon 03-12-2025 FINGERSTICK GLU 220 mg/dL High 74-106 [facility] Comment on above: Result Comment: JEREMIAS GEMENT OF PATIENT CARE PER NURSING PROTOCOL Performed By: #### L 501.080 ####[facility] [address] [place], [address] FINGERSTICK GLU 276 mg/dL High 74-106 [facility] Comment on above: Result Comment: JEREMIAS GEMENT OF PATIENT CARE PER NURSING PROTOCOL Performed By: #### L 501.080 ####[facility] [address] [place], [address] FINGERSTICK GLU 315 mg/dL High 74-106 [facility] Comment on above: Result Comment: JEREMIAS GEMENT OF PATIENT CARE PER NURSING PROTOCOL Performed By: #### L 501.080 ####[facility] [address] [place], [address] FINGERSTICK GLU 129 mg/dL High 74-106 [facility] Comment on above: Result Comment: JEREMIAS GEMENT OF PATIENT CARE PER NURSING PROTOCOL Performed By: #### L 501.080 ####[facility] [address] [place], [address] CBC W/Diff, Automatedon 04-2 Absolute Lymph 1.65 X10 3/uL Normal 0.83-4.51 [facility] Comment on above: Performed By: #### L 100.0100, L500.2500 ####[facility] [address] [place], [address] Absolute Neut 6.7 X10 3/uL Normal 2.0-7.7 [facility] Comment on above: Performed By: #### L 100.0100, L500.2500 ####[facility] [address] [place], [address] Basophils/100 WBC (Bld) 0.7 % Normal 0-1 [facility] Comment on above: Performed By: #### L 100.0100, L500.2500 ####[facility] [address] [place], [address] Eosinophils/100 WBC (Bld) 2.9 % Normal 0-5 [facility] Comment on above: Performed By: #### L 100.0100, L500.2500 ####[facility] [address] [place], [address] Erythrocyte distribution width (RBC) [Ratio] 15.8 % High 11.6-14.6 [facility] Comment on above: Performed By: #### L 100.0100, L500.2500 ####[facility] [address] [place], [address] Hematocrit (Bld) [Volume fraction] 29.0 % Low 37-47 [facility] Comment on above: Performed By: #### L 100.0100, L500.2500 ####[facility] [address] [place], [address] Hemoglobin (Bld) [Mass/Vol] 9.0 g/dL Low 12.0-15.0 [facility] Comment on above: Performed By: #### L 100.0100, L500.2500 ####[facility] [address] [place], [address] IG% 1.000 High 0.0-0.9 [facility] Comment on above: Result Comment: IG% - Immature Granulocytes (promyelocytes, myelocytes andmetamyelocytes) > 1% indicates that a LEFT SHIFT is Present. Performed By: #### L 100.0100, L500.2500 ####[facility] [address] [place], [address] Lymphocytes/100 WBC (Bld) 16.9 % Low 19-41 [facility] Comment on above: Performed By: #### L 100.0100, L500.2500 ####[facility] [address] [place], [address] MCH (RBC) [Entitic mass] 28.7 pg Normal 27.0-32.0 [facility] Comment on above: Performed By: #### L 100.0100, L500.2500 ####[facility] [address] [place], [address] MCHC (RBC) [Mass/Vol] 31.0 g/dL Low 32-36 [facility] Comment on above: Performed By: #### L 100.0100, L500.2500 ####[facility] [address] [place], [address] MCV (RBC) [Entitic vol] 92.4 fL Normal 81-99 [facility] Comment on above: Performed By: #### L 100.0100, L500.2500 ####[facility] [address] [place], [address] Monocytes/100 WBC (Bld) 10.2 % High 0-10 [facility] Comment on above: Performed By: #### L 100.0100, L500.2500 ####[facility] [address] [place], [address] Neutrophils/100 WBC (Bld) 68.3 % Normal 47-70 [facility] Comment on above: Performed By: #### L 100.0100, L500.2500 ####[facility] [address] [place], [address] Nucleated RBC (Bld) [#/Vol] 0 10*3/uL Normal 0-5 [facility] Comment on above: Performed By: #### L 100.0100, L500.2500 ####[facility] [address] [place], [address] Platelet mean volume (Bld) [Entitic vol] 11.8 fL Normal 6.2-12.0 [facility] Comment on above: Performed By: #### L 100.0100, L500.2500 ####[facility] [address] [place], [address] Platelets (Bld) [#/Vol] 175 10*3/uL Normal 150-450 [facility] Comment on above: Performed By: #### L 100.0100, L500.2500 ####[facility] [address] [place], [address] RBC (Bld) [#/Vol] 3.14 10*6/uL Low 4.2-5.4 [facility] Comment on above: Performed By: #### L 100.0100, L500.2500 ####[facility] [address] [place], [address] RDW SD 51.3 fl High 35.1-43.9 [facility] Comment on above: Performed By: #### L 100.0100, L500.2500 ####[facility] [address] [place], [address] WBC (Bld) [#/Vol] 9.8 10*3/uL Normal 4.4-11.0 [facility] Comment on above: Performed By: #### L 100.0100, L500.2500 ####[facility] [address] [place], [address] Absolute Neut Normal 2.0-7.7 [facility] Comment on above: Result Comment: Canc elled via OM: Order cancelled - Patient discharged Performed By: #### L 100.0100, L500.2500 ####[facility] [address] [place], [address] HCT Normal 37-47 [facility] Comment on above: Result Comment: Canc elled via OM: Order cancelled - Patient discharged Performed By: #### L 100.0100, L500.2500 ####[facility] [address] [place], [address] HGB Normal 12.0-15.0 [facility] Comment on above: Result Comment: Canc elled via OM: Order cancelled - Patient discharged Performed By: #### L 100.0100, L500.2500 ####[facility] [address] [place], [address] MCH Normal 27.0-32.0 [facility] Comment on above: Result Comment: Canc elled via OM: Order cancelled - Patient discharged Performed By: #### L 100.0100, L500.2500 ####[facility] [address] [place], [address] MCHC Normal 32-36 [facility] Comment on above: Result Comment: Canc elled via OM: Order cancelled - Patient discharged Performed By: #### L 100.0100, L500.2500 ####[facility] [address] [place], [address] MCV Normal 81-99 [facility] Comment on above: Result Comment: Canc elled via OM: Order cancelled - Patient discharged Performed By: #### L 100.0100, L500.2500 ####[facility] [address] [place], [address] NEUT% Normal 47-70 [facility] Comment on above: Result Comment: Canc elled via OM: Order cancelled - Patient discharged Performed By: #### L 100.0100, L500.2500 ####[facility] [address] [place], [address] PLT Normal 150-450 [facility] Comment on above: Result Comment: Canc elled via OM: Order cancelled - Patient discharged Performed By: #### L 100.0100, L500.2500 ####[facility] [address] [place], [address] RBC Normal 4.2-5.4 [facility] Comment on above: Result Comment: Canc elled via OM: Order cancelled - Patient discharged Performed By: #### L 100.0100, L500.2500 ####[facility] [address] [place], [address] RDW CV Normal 11.6-14.6 [facility] Comment on above: Result Comment: Canc elled via OM: Order cancelled - Patient discharged Performed By: #### L 100.0100, L500.2500 ####[facility] [address] [place], [address] RDW SD Normal 35.1-43.9 [facility] Comment on above: Result Comment: Canc elled via OM: Order cancelled - Patient discharged Performed By: #### L 100.0100, L500.2500 ####[facility] [address] [place], [address] WBC Normal 4.4-11.0 [facility] Comment on above: Result Comment: Canc elled via OM: Order cancelled - Patient discharged Performed By: #### L 100.0100, L500.2500 ####[facility] [address] [place], [address] Absolute lymphocyte countOrd ered By: Broderick Dempsey on 03-11-2025 Lymphocytes Auto (Unsp spec) [#/Vol] 1.37 10*3/uL 0.83-4.51 [facility] Absolute neutrophil countOrd ered By: Broderickarlene Dempsey on 03-11-2025 Neutrophils (Bld) [#/Vol] 5.4 10*3/uL 2.0-7.7 [facility] Anion gap in Serum or Plasma Ordered By: Broderick Dempsey on 03-11-2025 Anion gap [Moles/Vol] 10 mmol/L 5-15 [facility] Automated lymphocyte count a s percentage of total leukocytesOrdered By: Broderick Dempsey on 03-11-2025 Lymphocytes/100 WBC Auto (Unsp spec) 17.0 % Low 19-41 [facility] BUN/creatinine ratioOrdered By: Broderickarlene Dempsey on 03-11-2025 Urea nitrogen/Creatinine [Mass ratio] 37.8 mg/mg High 10-20 [facility] Basic Metabolic Profile (BMP )on 03-11-2025 BUN/CRE 37.8 RATIO High 10-20 [facility] Comment on above: Performed By: #### L 500.2500, L100.0100 ####[facility] [address] [place], [address] Calcium [Mass/Vol] 8.4 mg/dL Normal 7.6-11.0 [facility] Comment on above: Performed By: #### L 500.2500, L100.0100 ####[facility] [address] [place], [address] Chloride [Moles/Vol] 111 mmol/L High 98-108 [facility] Comment on above: Performed By: #### L 500.2500, L100.0100 ####[facility] [address] [place], [address] CO2 [Moles/Vol] 19.8 mmol/L Low 21.0-32.0 [facility] Comment on above: Performed By: #### L 500.2500, L100.0100 ####[facility] [address] [place], [address] Creatinine [Mass/Vol] 1.41 mg/dL High 0.70-1.20 [facility] Comment on above: Performed By: #### L 500.2500, L100.0100 ####[facility] [address] [place], [address] ECRCL 36.83 ml/min Low 50-250 [facility] Comment on above: Performed By: #### L 500.2500, L100.0100 ####[facility] [address] [place], [address] GAP 10 Normal 5-15 [facility] Comment on above: Performed By: #### L 500.2500, L100.0100 ####[facility] [address] [place], [address] GFR/1.73 sq M.predicted among non-blacks MDRD (S/P/Bld) [Vol rate/Area] 39 mL/min/{1.73_m2} Low >60 [facility] Comment on above: Result Comment: mL/m in/1.73m2 CKD-EPI Creatinine Equation (2020) Performed By: #### L 500.2500, L100.0100 ####[facility] [address] [place], [address] Glucose [Mass/Vol] 91 mg/dL Normal 70-99 [facility] Comment on above: Performed By: #### L 500.2500, L100.0100 ####[facility] [address] [place], [address] Potassium [Moles/Vol] 4.2 mmol/L Normal 3.3-5.1 [facility] Comment on above: Performed By: #### L 500.2500, L100.0100 ####[facility] [address] [place], [address] Sodium [Moles/Vol] 141 mmol/L Normal 133-145 [facility] Comment on above: Performed By: #### L 500.2500, L100.0100 ####[facility] [address] [place], [address] Urea nitrogen [Mass/Vol] 53 mg/dL High 4-19 [facility] Comment on above: Performed By: #### L 500.2500, L100.0100 ####[facility] [address] [place], [address] Basophil percentageOrdered B y: Broderick Ke on 03-11-2025 Basophils/100 WBC (Bld) 0.7 % 0-1 [facility] Bedside Glucoseon 03-11-2025 FINGERSTICK GLU 204 mg/dL High 74-106 [facility] Comment on above: Result Comment: JEREMIAS GEMENT OF PATIENT CARE PER NURSING PROTOCOL Performed By: #### L 501.080 ####[facility] [address] [place], [address] FINGERSTICK GLU 164 mg/dL High 74-106 [facility] Comment on above: Result Comment: JEREMIAS GEMENT OF PATIENT CARE PER NURSING PROTOCOL Performed By: #### L 501.080 ####[facility] [address] [place], [address] FINGERSTICK GLU 282 mg/dL High 74-106 [facility] Comment on above: Result Comment: JEREMIAS GEMENT OF PATIENT CARE PER NURSING PROTOCOL Performed By: #### L 501.080 ####[facility] [address] [place], [address] FINGERSTICK GLU 82 mg/dL Normal 74-106 [facility] Comment on above: Result Comment: JEREMIAS GEMENT OF PATIENT CARE PER NURSING PROTOCOL Performed By: #### L 501.080 ####[facility] [address] [place], [address] FINGERSTICK GLU 142 mg/dL High 74-106 [facility] Comment on above: Result Comment: JEREMIAS PADILLA OF PATIENT CARE PER NURSING PROTOCOL Performed By: #### L 501.080 ####[facility] [address] [place], [address] CBC W/Diff, Automatedon 04 Absolute Lymph 1.37 X10 3/uL Normal 0.83-4.51 [facility] Comment on above: Performed By: #### L 500.2500, L100.0100 ####[facility] [address] [place], [address] Absolute Neut 5.4 X10 3/uL Normal 2.0-7.7 [facility] Comment on above: Performed By: #### L 500.2500, L100.0100 ####[facility] [address] [place], [address] Basophils/100 WBC (Bld) 0.7 % Normal 0-1 [facility] Comment on above: Performed By: #### L 500.2500, L100.0100 ####[facility] [address] [place], [address] Eosinophils/100 WBC (Bld) 3.6 % Normal 0-5 [facility] Comment on above: Performed By: #### L 500.2500, L100.0100 ####[facility] [address] [place], [address] Erythrocyte distribution width (RBC) [Ratio] 15.4 % High 11.6-14.6 [facility] Comment on above: Performed By: #### L 500.2500, L100.0100 ####[facility] [address] [place], [address] Hematocrit (Bld) [Volume fraction] 25.3 % Low 37-47 [facility] Comment on above: Performed By: #### L 500.2500, L100.0100 ####[facility] [address] [place], [address] Hemoglobin (Bld) [Mass/Vol] 8.0 g/dL Low 12.0-15.0 [facility] Comment on above: Performed By: #### L 500.2500, L100.0100 ####[facility] [address] [place], [address] IG% 0.900 Normal 0.0-0.9 [facility] Comment on above: Result Comment: IG% - Immature Granulocytes (promyelocytes, myelocytes andmetamyelocytes) > 1% indicates that a LEFT SHIFT is Present. Performed By: #### L 500.2500, L100.0100 ####[facility] [address] [place], [address] Lymphocytes/100 WBC (Bld) 17.0 % Low 19-41 [facility] Comment on above: Performed By: #### L 500.2500, L100.0100 ####[facility] [address] [place], [address] MCH (RBC) [Entitic mass] 28.8 pg Normal 27.0-32.0 [facility] Comment on above: Performed By: #### L 500.2500, L100.0100 ####[facility] [address] [place], [address] MCHC (RBC) [Mass/Vol] 31.6 g/dL Low 32-36 [facility] Comment on above: Performed By: #### L 500.2500, L100.0100 ####[facility] [address] [place], [address] MCV (RBC) [Entitic vol] 91.0 fL Normal 81-99 [facility] Comment on above: Performed By: #### L 500.2500, L100.0100 ####[facility] [address] [place], [address] Monocytes/100 WBC (Bld) 10.8 % High 0-10 [facility] Comment on above: Performed By: #### L 500.2500, L100.0100 ####[facility] [address] [place], [address] Neutrophils/100 WBC (Bld) 67.0 % Normal 47-70 [facility] Comment on above: Performed By: #### L 500.2500, L100.0100 ####[facility] [address] [place], [address] Nucleated RBC (Bld) [#/Vol] 0 10*3/uL Normal 0-5 [facility] Comment on above: Performed By: #### L 500.2500, L100.0100 ####[facility] [address] [place], [address] Platelet mean volume (Bld) [Entitic vol] 11.7 fL Normal 6.2-12.0 [facility] Comment on above: Performed By: #### L 500.2500, L100.0100 ####[facility] [address] [place], [address] Platelets (Bld) [#/Vol] 150 10*3/uL Normal 150-450 [facility] Comment on above: Performed By: #### L 500.2500, L100.0100 ####[facility] [address] [place], [address] RBC (Bld) [#/Vol] 2.78 10*6/uL Low 4.2-5.4 [facility] Comment on above: Performed By: #### L 500.2500, L100.0100 ####[facility] [address] [place], [address] RDW SD 49.5 fl High 35.1-43.9 [facility] Comment on above: Performed By: #### L 500.2500, L100.0100 ####[facility] [address] [place], [address] WBC (Bld) [#/Vol] 8.1 10*3/uL Normal 4.4-11.0 [facility] Comment on above: Performed By: #### L 500.2500, L100.0100 ####[facility] [address] [place], [address] Carbon dioxide, total [Moles /volume] in Central venous bloodOrdered By: Broderick Dempsey on 03-11-2025 CO2 [Moles/Vol] 19.8 mmol/L Low 21.0-32.0 [facility] Chloride assayOrdered By: Solange Dempsey on 03-11-2025 Chloride [Moles/Vol] 111 mmol/L High 98-108 [facility] Consultation - Infectious Dx on 03-11-2025 Consultation - Infectious Dx Normal [facility] Eosinophil percentageOrdered By: Broderick Dempsey on 03-11-2025 Eosinophils/100 WBC (Bld) 3.6 % 0-5 [facility] Erythrocyte distribution wid th ratioOrdered By: Broderick Dempsey on 03-11-2025 Erythrocyte distribution width (RBC) [Ratio] 15.4 % High 11.6-14.6 [facility] Erythrocyte distribution wid th standard deviationOrdered By: Broderick Dempsey on 03-11-2025 Erythrocyte distribution width (RBC) [Ratio] 49.5 fl High 35.1-43.9 [facility] Glomerular filtration rate ( GFR) estimation/1.73 sq m using serum, plasma, or whole bOrdered By: Broderick Dempsey on 03-11-2025 GFR/1.73 sq M.predicted among non-blacks MDRD (S/P/Bld) [Vol rate/Area] 39 mL/min/{1.73_m2} Low >60 [facility] Comment on above: mL/min/1.73m2 CKD-EP I Creatinine Equation (2020) [facility] deOrdered By: Broderick Dempsey on 03-11-2025 Glucose [Mass/Vol] 164 mg/dL High 74-106 [facility] Comment on above: MANAGEMENT OF PATIEN T CARE PER NURSING PROTOCOL Hematocrit Auto (Bld) [Volum e fraction]Ordered By: Broderick Dempsey on 03-11-2025 Hematocrit (Bld) [Volume fraction] 25.3 % Low 37-47 [facility] Hemoglobin measurementOrdere d By: Broderick Dempsey on 03-11-2025 Hemoglobin (Bld) [Mass/Vol] 8.0 g/dL Low 12.0-15.0 [facility] Immature granulocytes/100 WB C Auto (Bld)Ordered By: Broderick Dempsey on 03-11-2025 Immature granulocytes/100 WBC (Bld) 0.900 % 0.0-0.9 [facility] Comment on above: IG% - Immature Granu locytes (promyelocytes, myelocytes and metamyelocytes) > 1% indicates that a LEFT SHIFT is Present. MCV (mean corpuscular volume ) determinationOrdered By: Broderick Dempsey on 03-11-2025 MCV (RBC) [Entitic vol] 91.0 fL 81-99 [facility] Mean corpuscular hemoglobin (MCH) determinationOrdered By: Broderick Dempsey on 03-11-2025 MCH (RBC) [Entitic mass] 28.8 pg 27.0-32.0 [facility] Mean corpuscular hemoglobin concentration (MCHC) determinationOrdered By: Broderick Dempsey on 03-11-2025 MCHC (RBC) [Mass/Vol] 31.6 g/dL Low 32-36 [facility] Mean platelet volume determi nationOrdered By: Broderick Dempsey on 03-11-2025 Platelet mean volume (Bld) [Entitic vol] 11.7 fL 6.2-12.0 [facility] Monocyte percentageOrdered B y: Broderick Dempsey on 03-11-2025 Monocytes/100 WBC (Bld) 10.8 % High 0-10 [facility] Neutrophil percentageOrdered By: Broderick Dempsey on 03-11-2025 Neutrophils/100 WBC (Bld) 67.0 % 47-70 [facility] Nucleated red blood cell per centageOrdered By: Broderick Dempsey on 03-11-2025 Nucleated RBC/100 WBC (Bld) [Ratio] 0 % 0-5 [facility] Platelet countOrdered By: Solange Dempsey on 03-11-2025 Platelets (Bld) [#/Vol] 150 10*3/uL 150-450 [facility] Potassium measurement (mass/ volume)Ordered By: Broderick Dempsey on 03-11-2025 Potassium (Unsp spec) [Mass/Vol] 4.2 mmol/L 3.3-5.1 [facility] RBC Auto (Bld) [#/Vol]Ordere d By: Broderick Dempsey on 03-11-2025 RBC (Bld) [#/Vol] 2.78 10*6/uL Low 4.2-5.4 [facility] Serum creatinine measurement (mass/volume)Ordered By: Broderick Dempsey on 03-11-2025 Creatinine [Mass/Vol] 1.41 mg/dL High 0.70-1.20 [facility] Serum glucose measurement (m ass/volume)Ordered By: Broderick Dempsey on 03-11-2025 Glucose [Mass/Vol] 91 mg/dL 70-99 [facility] Serum or plasma calcium natalia urement (mass/volume)Ordered By: Broderick Dempsey on 03-11-2025 Calcium [Mass/Vol] 8.4 mg/dL 7.6-11.0 [facility] Serum or plasma urea nitroge n measurement (mass/volume)Ordered By: Broderick Dempsey on 03-11-2025 Urea nitrogen [Mass/Vol] 53 mg/dL High 4-19 [facility] Sodium levelOrdered By: Tevin Dempsey on 03-11-2025 Sodium [Moles/Vol] 141 mmol/L 133-145 [facility] White blood cell (WBC) count Ordered By: Broderick Dempsey on 03-11-2025 WBC (Bld) [#/Vol] 8.1 10*3/uL 4.4-11.0 [facility] Basic Metabolic Profile (BMP )on 03-10-2025 BUN/CRE 44.3 RATIO High 10-20 [facility] Comment on above: Performed By: #### L 100.0100, L500.2500 ####[facility] [address] [place], [address] Calcium [Mass/Vol] 8.4 mg/dL Normal 7.6-11.0 [facility] Comment on above: Performed By: #### L 100.0100, L500.2500 ####[facility] [address] [place], [address] Chloride [Moles/Vol] 113 mmol/L High 98-108 [facility] Comment on above: Performed By: #### L 100.0100, L500.2500 ####[facility] [address] [place], [address] CO2 [Moles/Vol] 19.1 mmol/L Low 21.0-32.0 [facility] Comment on above: Performed By: #### L 100.0100, L500.2500 ####[facility] [address] [place], [address] Creatinine [Mass/Vol] 1.47 mg/dL High 0.70-1.20 [facility] Comment on above: Performed By: #### L 100.0100, L500.2500 ####[facility] [address] [place], [address] ECRCL 35.18 ml/min Low 50-250 [facility] Comment on above: Performed By: #### L 100.0100, L500.2500 ####[facility] [address] [place], [address] GAP 10 Normal 5-15 [facility] Comment on above: Performed By: #### L 100.0100, L500.2500 ####[facility] [address] [place], [address] GFR/1.73 sq M.predicted among non-blacks MDRD (S/P/Bld) [Vol rate/Area] 37 mL/min/{1.73_m2} Low >60 [facility] Comment on above: Result Comment: mL/m in/1.73m2 CKD-EPI Creatinine Equation (2020) Performed By: #### L 100.0100, L500.2500 ####[facility] [address] [place], [address] Glucose [Mass/Vol] 81 mg/dL Normal 70-99 [facility] Comment on above: Performed By: #### L 100.0100, L500.2500 ####[facility] [address] [place], [address] Potassium [Moles/Vol] 4.2 mmol/L Normal 3.3-5.1 [facility] Comment on above: Performed By: #### L 100.0100, L500.2500 ####[facility] [address] [place], [address] Sodium [Moles/Vol] 143 mmol/L Normal 133-145 [facility] Comment on above: Performed By: #### L 100.0100, L500.2500 ####[facility] [address] [place], [address] Urea nitrogen [Mass/Vol] 65 mg/dL High 4-19 [facility] Comment on above: Performed By: #### L 100.0100, L500.2500 ####[facility] [address] [place], [address] Bedside Glucoseon 03-10-2025 FINGERSTICK GLU 186 mg/dL High 74-106 [facility] Comment on above: Result Comment: JEREMIAS GEMENT OF PATIENT CARE PER NURSING PROTOCOL Performed By: #### L 501.080 ####[facility] [address] [place], [address] FINGERSTICK GLU 308 mg/dL High 74-106 [facility] Comment on above: Result Comment: JEREMIAS GEMENT OF PATIENT CARE PER NURSING PROTOCOL Performed By: #### L 501.080 ####[facility] [address] [place], [address] FINGERSTICK GLU 84 mg/dL Normal 74-106 [facility] Comment on above: Result Comment: JEREMIAS PADILLA OF PATIENT CARE PER NURSING PROTOCOL Performed By: #### L 501.080 ####[facility] [address] [place], [address] CBC W/Diff, Automatedon 02-18 Absolute Lymph 1.76 X10 3/uL Normal 0.83-4.51 [facility] Comment on above: Performed By: #### L 100.0100, L500.2500 ####[facility] [address] [place], [address] Absolute Neut 4.7 X10 3/uL Normal 2.0-7.7 [facility] Comment on above: Performed By: #### L 100.0100, L500.2500 ####[facility] [address] [place], [address] Basophils/100 WBC (Bld) 0.6 % Normal 0-1 [facility] Comment on above: Performed By: #### L 100.0100, L500.2500 ####[facility] [address] [place], [address] Eosinophils/100 WBC (Bld) 3.0 % Normal 0-5 [facility] Comment on above: Performed By: #### L 100.0100, L500.2500 ####[facility] [address] [place], [address] Erythrocyte distribution width (RBC) [Ratio] 15.1 % High 11.6-14.6 [facility] Comment on above: Performed By: #### L 100.0100, L500.2500 ####[facility] [address] [place], [address] Hematocrit (Bld) [Volume fraction] 25.3 % Low 37-47 [facility] Comment on above: Performed By: #### L 100.0100, L500.2500 ####[facility] [address] [place], [address] Hemoglobin (Bld) [Mass/Vol] 8.1 g/dL Low 12.0-15.0 [facility] Comment on above: Performed By: #### L 100.0100, L500.2500 ####[facility] [address] [place], [address] IG% 1.300 High 0.0-0.9 [facility] Comment on above: Result Comment: IG% - Immature Granulocytes (promyelocytes, myelocytes andmetamyelocytes) > 1% indicates that a LEFT SHIFT is Present. Performed By: #### L 100.0100, L500.2500 ####[facility] [address] [place], [address] Lymphocytes/100 WBC (Bld) 22.3 % Normal 19-41 [facility] Comment on above: Performed By: #### L 100.0100, L500.2500 ####[facility] [address] [place], [address] MCH (RBC) [Entitic mass] 28.7 pg Normal 27.0-32.0 [facility] Comment on above: Performed By: #### L 100.0100, L500.2500 ####[facility] [address] [place], [address] MCHC (RBC) [Mass/Vol] 32.0 g/dL Normal 32-36 [facility] Comment on above: Performed By: #### L 100.0100, L500.2500 ####[facility] [address] [place], [address] MCV (RBC) [Entitic vol] 89.7 fL Normal 81-99 [facility] Comment on above: Performed By: #### L 100.0100, L500.2500 ####[facility] [address] [place], [address] Monocytes/100 WBC (Bld) 12.9 % High 0-10 [facility] Comment on above: Performed By: #### L 100.0100, L500.2500 ####[facility] [address] [place], [address] Neutrophils/100 WBC (Bld) 59.9 % Normal 47-70 [facility] Comment on above: Performed By: #### L 100.0100, L500.2500 ####[facility] [address] [place], [address] Nucleated RBC (Bld) [#/Vol] 0 10*3/uL Normal 0-5 [facility] Comment on above: Performed By: #### L 100.0100, L500.2500 ####[facility] [address] [place], [address] Platelet mean volume (Bld) [Entitic vol] 11.4 fL Normal 6.2-12.0 [facility] Comment on above: Performed By: #### L 100.0100, L500.2500 ####[facility] [address] [place], [address] Platelets (Bld) [#/Vol] 156 10*3/uL Normal 150-450 [facility] Comment on above: Performed By: #### L 100.0100, L500.2500 ####[facility] [address] [place], [address] RBC (Bld) [#/Vol] 2.82 10*6/uL Low 4.2-5.4 [facility] Comment on above: Performed By: #### L 100.0100, L500.2500 ####[facility] [address] [place], [address] RDW SD 46.9 fl High 35.1-43.9 [facility] Comment on above: Performed By: #### L 100.0100, L500.2500 ####[facility] [address] [place], [address] WBC (Bld) [#/Vol] 7.9 10*3/uL Normal 4.4-11.0 [facility] Comment on above: Performed By: #### L 100.0100, L500.2500 ####[facility] [address] [place], [address] Protein+Creatinine Ratio,Uri neon 03-10-2025 PROT:CRE RATIO 226 mg/g CRE High 0-200 [facility] Comment on above: Performed By: #### L 501.0900 ####[facility] [address] [place], [address] Protein (U) [Mass/Vol] 8.5 mg/dL Normal 0.0-12.0 [facility] Comment on above: Performed By: #### L 501.0900 ####[facility] [address] [place], [address] UR CREAT 37.70 mg/dL Normal 28.00-217.0 0 [facility] Comment on above: Performed By: #### L 501.0900 ####[facility] [address] [place], [address] Basic Metabolic Profile (BMP )on 03-09-2025 BUN/CRE 51.7 RATIO High 10-20 [facility] Comment on above: Performed By: #### L 500.2500, L501.3620, L100.0100 ####[facility] [address] [place], [address] Calcium [Mass/Vol] 8.1 mg/dL Normal 7.6-11.0 [facility] Comment on above: Performed By: #### L 500.2500, L501.3620, L100.0100 ####[facility] [address] [place], [address] Chloride [Moles/Vol] 112 mmol/L High 98-108 [facility] Comment on above: Performed By: #### L 500.2500, L501.3620, L100.0100 ####[facility] [address] [place], [address] CO2 [Moles/Vol] 19.1 mmol/L Low 21.0-32.0 [facility] Comment on above: Performed By: #### L 500.2500, L501.3620, L100.0100 ####[facility] [address] [place], [address] Creatinine [Mass/Vol] 1.63 mg/dL High 0.70-1.20 [facility] Comment on above: Performed By: #### L 500.2500, L501.3620, L100.0100 ####[facility] [address] [place], [address] ECRCL 31.75 ml/min Low 50-250 [facility] Comment on above: Performed By: #### L 500.2500, L501.3620, L100.0100 ####[facility] [address] [place], [address] GAP 10 Normal 5-15 [facility] Comment on above: Performed By: #### L 500.2500, L501.3620, L100.0100 ####[facility] [address] [place], [address] GFR/1.73 sq M.predicted among non-blacks MDRD (S/P/Bld) [Vol rate/Area] 33 mL/min/{1.73_m2} Low >60 [facility] Comment on above: Result Comment: mL/m in/1.73m2 CKD-EPI Creatinine Equation (2020) Performed By: #### L 500.2500, L501.3620, L100.0100 ####[facility] [address] [place], [address] Glucose [Mass/Vol] 120 mg/dL High 70-99 [facility] Comment on above: Performed By: #### L 500.2500, L501.3620, L100.0100 ####[facility] [address] [place], [address] Potassium [Moles/Vol] 3.8 mmol/L Normal 3.3-5.1 [facility] Comment on above: Performed By: #### L 500.2500, L501.3620, L100.0100 ####[facility] [address] [place], [address] Sodium [Moles/Vol] 141 mmol/L Normal 133-145 [facility] Comment on above: Performed By: #### L 500.2500, L501.3620, L100.0100 ####[facility] [address] [place], [address] Urea nitrogen [Mass/Vol] 84 mg/dL High 4-19 [facility] Comment on above: Performed By: #### L 500.2500, L501.3620, L100.0100 ####[facility] [address] [place], [address] Bedside Glucoseon 03-09-2025 FINGERSTICK GLU 220 mg/dL High 74-106 [facility] Comment on above: Result Comment: JEREMIAS GEMENT OF PATIENT CARE PER NURSING PROTOCOL Performed By: #### L 501.080 ####[facility] [address] [place], [address] FINGERSTICK GLU 193 mg/dL High 74-106 [facility] Comment on above: Result Comment: JEREMIAS GEMENT OF PATIENT CARE PER NURSING PROTOCOL Performed By: #### L 501.080 ####[facility] [address] [place], [address] FINGERSTICK GLU 164 mg/dL High 74-106 [facility] Comment on above: Result Comment: JEREMIAS PADILLA OF PATIENT CARE PER NURSING PROTOCOL Performed By: #### L 501.080 ####[facility] [address] [place], [address] CBC W/Diff, Automatedon 04-2 Absolute Lymph 1.38 X10 3/uL Normal 0.83-4.51 [facility] Comment on above: Performed By: #### L 500.2500, L501.3620, L100.0100 ####[facility] [address] [place], [address] Absolute Neut 6.3 X10 3/uL Normal 2.0-7.7 [facility] Comment on above: Performed By: #### L 500.2500, L501.3620, L100.0100 ####[facility] [address] [place], [address] Basophils/100 WBC (Bld) 0.3 % Normal 0-1 [facility] Comment on above: Performed By: #### L 500.2500, L501.3620, L100.0100 ####[facility] [address] [place], [address] Eosinophils/100 WBC (Bld) 2.3 % Normal 0-5 [facility] Comment on above: Performed By: #### L 500.2500, L501.3620, L100.0100 ####[facility] [address] [place], [address] Erythrocyte distribution width (RBC) [Ratio] 14.7 % High 11.6-14.6 [facility] Comment on above: Performed By: #### L 500.2500, L501.3620, L100.0100 ####[facility] [address] [place], [address] Hematocrit (Bld) [Volume fraction] 23.5 % Low 37-47 [facility] Comment on above: Performed By: #### L 500.2500, L501.3620, L100.0100 ####[facility] [address] [place], [address] Hemoglobin (Bld) [Mass/Vol] 7.6 g/dL Low 12.0-15.0 [facility] Comment on above: Performed By: #### L 500.2500, L501.3620, L100.0100 ####[facility] [address] [place], [address] IG% 1.000 High 0.0-0.9 [facility] Comment on above: Result Comment: IG% - Immature Granulocytes (promyelocytes, myelocytes andmetamyelocytes) > 1% indicates that a LEFT SHIFT is Present. Performed By: #### L 500.2500, L501.3620, L100.0100 ####[facility] [address] [place], [address] Lymphocytes/100 WBC (Bld) 15.8 % Low 19-41 [facility] Comment on above: Performed By: #### L 500.2500, L501.3620, L100.0100 ####[facility] [address] [place], [address] MCH (RBC) [Entitic mass] 29.0 pg Normal 27.0-32.0 [facility] Comment on above: Performed By: #### L 500.2500, L501.3620, L100.0100 ####[facility] [address] [place], [address] MCHC (RBC) [Mass/Vol] 32.3 g/dL Normal 32-36 [facility] Comment on above: Performed By: #### L 500.2500, L501.3620, L100.0100 ####[facility] [address] [place], [address] MCV (RBC) [Entitic vol] 89.7 fL Normal 81-99 [facility] Comment on above: Performed By: #### L 500.2500, L501.3620, L100.0100 ####[facility] [address] [place], [address] Monocytes/100 WBC (Bld) 9.0 % Normal 0-10 [facility] Comment on above: Performed By: #### L 500.2500, L501.3620, L100.0100 ####[facility] [address] [place], [address] Neutrophils/100 WBC (Bld) 71.6 % High 47-70 [facility] Comment on above: Performed By: #### L 500.2500, L501.3620, L100.0100 ####[facility] [address] [place], [address] Nucleated RBC (Bld) [#/Vol] 0 10*3/uL Normal 0-5 [facility] Comment on above: Performed By: #### L 500.2500, L501.3620, L100.0100 ####[facility] [address] [place], [address] Platelet mean volume (Bld) [Entitic vol] 11.7 fL Normal 6.2-12.0 [facility] Comment on above: Performed By: #### L 500.2500, L501.3620, L100.0100 ####[facility] [address] [place], [address] Platelets (Bld) [#/Vol] 164 10*3/uL Normal 150-450 [facility] Comment on above: Performed By: #### L 500.2500, L501.3620, L100.0100 ####[facility] [address] [place], [address] RBC (Bld) [#/Vol] 2.62 10*6/uL Low 4.2-5.4 [facility] Comment on above: Performed By: #### L 500.2500, L501.3620, L100.0100 ####[facility] [address] [place], [address] RDW SD 47.1 fl High 35.1-43.9 [facility] Comment on above: Performed By: #### L 500.2500, L501.3620, L100.0100 ####[facility] [address] [place], [address] WBC (Bld) [#/Vol] 8.8 10*3/uL Normal 4.4-11.0 [facility] Comment on above: Performed By: #### L 500.2500, L501.3620, L100.0100 ####[facility] [address] [place], [address] CPK Total, Creatine Kinaseon 03-09-2025 CPK TOTAL 308 U/L High 24-195 [facility] Comment on above: Performed By: #### L 500.2500, L501.3620, L100.0100 ####[facility] [address] [place], [address] Consultation - Nephrologyon 03-09-2025 Consultation - Nephrology Normal [facility] Consultation - Surgicalon Consultation - Surgical Normal [facility] Folate [Mass/volume] in Seru m or PlasmaOrdered By: Maddie Merchant on 03-09-2025 Folate [Mass/Vol] 15.10 ng/mL 4.60-34.80 [facility] Folates,Serum (Folic Acid)on 03-09-2025 FOLATES,SERUM 15.10 ng/mL Normal 4.60-34.80 [facility] Comment on above: Performed By: #### L 506.0200 ####[facility] [address] [place], [place], [address] Kidney and Bladderon 025 Kidney and Bladder Normal [facility] Random urine creatinine natalia urement (mass/volume)Ordered By: Zarina Adler on 03-09-2025 Creatinine Unsp time (U) [Mass/Vol] 37.70 mg/dL 28.00-217.0 0 [facility] Serum or plasma creatine kin ase activityOrdered By: Broderick Dempsey on 03-09-2025 CK [Catalytic activity/Vol] 308 U/L High 24-195 [facility] Urine Cultureon 03-09-2025 URC Normal [facility] Comment on above: Performed By: #### M 100.2200 ####[facility] [address] [place], [address] Urine protein measurement (m ass/volume)Ordered By: Zarina Adler on 03-09-2025 Protein (U) [Mass/Vol] 8.5 mg/dL 0.0-12.0 [facility] Urine protein/creatinine mas s ratioOrdered By: Zarina Adler on 03-09-2025 Protein/Creatinine (U) [Mass ratio] 226 mg/g CRE High 0-200 [facility] Bedside Glucoseon 03-08-2025 FINGERSTICK GLU 249 mg/dL High 74-106 [facility] Comment on above: Result Comment: JEREMIAS GEMENT OF PATIENT CARE PER NURSING PROTOCOL Performed By: #### L 501.080 ####[facility] [address] [place], [address] FINGERSTICK GLU 200 mg/dL High 74-106 [facility] Comment on above: Result Comment: JEREMIAS GEMENT OF PATIENT CARE PER NURSING PROTOCOL Performed By: #### L 501.080 ####[facility] [address] [place], [address] FINGERSTICK GLU 165 mg/dL High 74-106 [facility] Comment on above: Result Comment: JEREMIAS GEMENT OF PATIENT CARE PER NURSING PROTOCOL Performed By: #### L 501.080 ####[facility] [address] [place], [address] FINGERSTICK GLU 159 mg/dL High 74-106 [facility] Comment on above: Result Comment: JEREMIAS GEMENT OF PATIENT CARE PER NURSING PROTOCOL Performed By: #### L 501.080 ####[facility] [address] [place], [address] FINGERSTICK GLU 283 mg/dL High 74-106 [facility] Comment on above: Result Comment: JEREMIAS GEMENT OF PATIENT CARE PER NURSING PROTOCOL Performed By: #### L 501.080 ####[facility] [address] [place], [address] Bilirubin, totalOrdered By: Maddie Merchant on 03-08-2025 Bilirubin [Mass/Vol] 0.25 mg/dL 0.00-1.30 [facility] CBC W/Diff, Automatedon 02-18 0-2024 Absolute Lymph 1.08 X10 3/uL Normal 0.83-4.51 [facility] Comment on above: Performed By: #### L 503.6550, L501.3620, L100.0100, L500.4050, L501.9985, L503.0106, L503.6030 ####[facility] [address] [place], [address] Absolute Neut 7.1 X10 3/uL Normal 2.0-7.7 [facility] Comment on above: Performed By: #### L 503.6550, L501.3620, L100.0100, L500.4050, L501.9985, L503.0106, L503.6030 ####[facility] [address] [place], [address] Basophils/100 WBC (Bld) 0.4 % Normal 0-1 [facility] Comment on above: Performed By: #### L 503.6550, L501.3620, L100.0100, L500.4050, L501.9985, L503.0106, L503.6030 ####[facility] [address] [place], [address] Eosinophils/100 WBC (Bld) 1.6 % Normal 0-5 [facility] Comment on above: Performed By: #### L 503.6550, L501.3620, L100.0100, L500.4050, L501.9985, L503.0106, L503.6030 ####[facility] [address] [place], [address] Erythrocyte distribution width (RBC) [Ratio] 14.5 % Normal 11.6-14.6 [facility] Comment on above: Performed By: #### L 503.6550, L501.3620, L100.0100, L500.4050, L501.9985, L503.0106, L503.6030 ####[facility] [address] [place], [address] Hematocrit (Bld) [Volume fraction] 25.1 % Low 37-47 [facility] Comment on above: Performed By: #### L 503.6550, L501.3620, L100.0100, L500.4050, L501.9985, L503.0106, L503.6030 ####[facility] [address] [place], [address] Hemoglobin (Bld) [Mass/Vol] 7.9 g/dL Low 12.0-15.0 [facility] Comment on above: Performed By: #### L 503.6550, L501.3620, L100.0100, L500.4050, L501.9985, L503.0106, L503.6030 ####[facility] [address] [place], [address] IG% 0.700 Normal 0.0-0.9 [facility] Comment on above: Result Comment: IG% - Immature Granulocytes (promyelocytes, myelocytes andmetamyelocytes) > 1% indicates that a LEFT SHIFT is Present. Performed By: #### L 503.6550, L501.3620, L100.0100, L500.4050, L501.9985, L503.0106, L503.6030 ####[facility] [address] [place], [address] Lymphocytes/100 WBC (Bld) 11.7 % Low 19-41 [facility] Comment on above: Performed By: #### L 503.6550, L501.3620, L100.0100, L500.4050, L501.9985, L503.0106, L503.6030 ####[facility] [address] [place], [address] MCH (RBC) [Entitic mass] 28.2 pg Normal 27.0-32.0 [facility] Comment on above: Performed By: #### L 503.6550, L501.3620, L100.0100, L500.4050, L501.9985, L503.0106, L503.6030 ####[facility] [address] [place], [address] MCHC (RBC) [Mass/Vol] 31.5 g/dL Low 32-36 [facility] Comment on above: Performed By: #### L 503.6550, L501.3620, L100.0100, L500.4050, L501.9985, L503.0106, L503.6030 ####[facility] [address] [place], [address] MCV (RBC) [Entitic vol] 89.6 fL Normal 81-99 [facility] Comment on above: Performed By: #### L 503.6550, L501.3620, L100.0100, L500.4050, L501.9985, L503.0106, L503.6030 ####[facility] [address] [place], [address] Monocytes/100 WBC (Bld) 9.1 % Normal 0-10 [facility] Comment on above: Performed By: #### L 503.6550, L501.3620, L100.0100, L500.4050, L501.9985, L503.0106, L503.6030 ####[facility] [address] [place], [address] Neutrophils/100 WBC (Bld) 76.5 % High 47-70 [facility] Comment on above: Performed By: #### L 503.6550, L501.3620, L100.0100, L500.4050, L501.9985, L503.0106, L503.6030 ####[facility] [address] [place], [address] Nucleated RBC (Bld) [#/Vol] 0 10*3/uL Normal 0-5 [facility] Comment on above: Performed By: #### L 503.6550, L501.3620, L100.0100, L500.4050, L501.9985, L503.0106, L503.6030 ####[facility] [address] [place], [address] Platelet mean volume (Bld) [Entitic vol] 11.6 fL Normal 6.2-12.0 [facility] Comment on above: Performed By: #### L 503.6550, L501.3620, L100.0100, L500.4050, L501.9985, L503.0106, L503.6030 ####[facility] [address] [place], [address] Platelets (Bld) [#/Vol] 185 10*3/uL Normal 150-450 [facility] Comment on above: Performed By: #### L 503.6550, L501.3620, L100.0100, L500.4050, L501.9985, L503.0106, L503.6030 ####[facility] [address] [place], [address] RBC (Bld) [#/Vol] 2.80 10*6/uL Low 4.2-5.4 [facility] Comment on above: Performed By: #### L 503.6550, L501.3620, L100.0100, L500.4050, L501.9985, L503.0106, L503.6030 ####[facility] [address] [place], [address] RDW SD 46.7 fl High 35.1-43.9 [facility] Comment on above: Performed By: #### L 503.6550, L501.3620, L100.0100, L500.4050, L501.9985, L503.0106, L503.6030 ####[facility] [address] [place], [address] WBC (Bld) [#/Vol] 9.2 10*3/uL Normal 4.4-11.0 [facility] Comment on above: Performed By: #### L 503.6550, L501.3620, L100.0100, L500.4050, L501.9985, L503.0106, L503.6030 ####[facility] [address] [place], [address] CPK Total, Creatine Kinaseon 03-08-2025 CPK TOTAL 736 U/L High 24-195 [facility] Comment on above: Performed By: #### L 503.6550, L501.3620, L100.0100, L500.4050, L501.9985, L503.0106, L503.6030 ####[facility] [address] [place], [address] Comprehensive Metabolic Prof ilon 03-08-2025 Albumin [Mass/Vol] 2.6 g/dL Low 3.4-4.8 [facility] Comment on above: Performed By: #### L 503.6550, L501.3620, L100.0100, L500.4050, L501.9985, L503.0106, L503.6030 ####[facility] [address] [place], [address] Albumin/Globulin [Mass ratio] 1.1 {ratio} Normal 0.9-2.4 [facility] Comment on above: Performed By: #### L 503.6550, L501.3620, L100.0100, L500.4050, L501.9985, L503.0106, L503.6030 ####[facility] [address] [place], [address] ALK PHOS 58 U/L Normal 35-104 [facility] Comment on above: Performed By: #### L 503.6550, L501.3620, L100.0100, L500.4050, L501.9985, L503.0106, L503.6030 ####[facility] [address] [place], [address] ALT [Catalytic activity/Vol] 48 U/L High <=34 [facility] Comment on above: Performed By: #### L 503.6550, L501.3620, L100.0100, L500.4050, L501.9985, L503.0106, L503.6030 ####[facility] [address] [place], [address] AST [Catalytic activity/Vol] 45 U/L High <=31 [facility] Comment on above: Performed By: #### L 503.6550, L501.3620, L100.0100, L500.4050, L501.9985, L503.0106, L503.6030 ####[facility] [address] [place], [address] Bilirubin [Mass/Vol] 0.25 mg/dL Normal 0.00-1.30 [facility] Comment on above: Performed By: #### L 503.6550, L501.3620, L100.0100, L500.4050, L501.9985, L503.0106, L503.6030 ####[facility] [address] [place], [address] BUN/CRE 52.5 RATIO High 10-20 [facility] Comment on above: Performed By: #### L 503.6550, L501.3620, L100.0100, L500.4050, L501.9985, L503.0106, L503.6030 ####[facility] [address] [place], [address] Calcium [Mass/Vol] 8.1 mg/dL Normal 7.6-11.0 [facility] Comment on above: Performed By: #### L 503.6550, L501.3620, L100.0100, L500.4050, L501.9985, L503.0106, L503.6030 ####[facility] [address] [place], [address] Chloride [Moles/Vol] 111 mmol/L High 98-108 [facility] Comment on above: Performed By: #### L 503.6550, L501.3620, L100.0100, L500.4050, L501.9985, L503.0106, L503.6030 ####[facility] [address] [place], [address] CO2 [Moles/Vol] 17.3 mmol/L Low 21.0-32.0 [facility] Comment on above: Performed By: #### L 503.6550, L501.3620, L100.0100, L500.4050, L501.9985, L503.0106, L503.6030 ####[facility] [address] [place], [place], [phone] Creatinine [Mass/Vol] 2.02 mg/dL High 0.70-1.20 [facility] Comment on above: Performed By: #### L 503.6550, L501.3620, L100.0100, L500.4050, L501.9985, L503.0106, L503.6030 ####[facility] [address] [place], [place], [address] ECRCL 25.62 ml/min Low 50-250 [facility] Comment on above: Performed By: #### L 503.6550, L501.3620, L100.0100, L500.4050, L501.9985, L503.0106, L503.6030 ####[facility] [address] [place], [place], [id number] GAP 14 Normal 5-15 [facility] Comment on above: Performed By: #### L 503.6550, L501.3620, L100.0100, L500.4050, L501.9985, L503.0106, L503.6030 ####[facility] [address] [place], [place], [phone] GFR/1.73 sq M.predicted among non-blacks MDRD (S/P/Bld) [Vol rate/Area] 26 mL/min/{1.73_m2} Low >60 [facility] Comment on above: Result Comment: mL/m in/1.73m2 CKD-EPI Creatinine Equation (2020) Performed By: #### L 503.6550, L501.3620, L100.0100, L500.4050, L501.9985, L503.0106, L503.6030 ####[facility] [address] [place], [address] Globulin (S) [Mass/Vol] 2.4 g/dL Normal 2.2-4.2 [facility] Comment on above: Performed By: #### L 503.6550, L501.3620, L100.0100, L500.4050, L501.9985, L503.0106, L503.6030 ####[facility] [address] [place], [address] Glucose [Mass/Vol] 172 mg/dL High 70-99 [facility] Comment on above: Performed By: #### L 503.6550, L501.3620, L100.0100, L500.4050, L501.9985, L503.0106, L503.6030 ####[facility] [address] [place], [address] Potassium [Moles/Vol] 3.8 mmol/L Normal 3.3-5.1 [facility] Comment on above: Performed By: #### L 503.6550, L501.3620, L100.0100, L500.4050, L501.9985, L503.0106, L503.6030 ####[facility] [address] [place], [address] Sodium [Moles/Vol] 143 mmol/L Normal 133-145 [facility] Comment on above: Performed By: #### L 503.6550, L501.3620, L100.0100, L500.4050, L501.9985, L503.0106, L503.6030 ####[facility] [address] [place], [address] T PROT 5.1 g/dL Low 5.9-8.4 [facility] Comment on above: Performed By: #### L 503.6550, L501.3620, L100.0100, L500.4050, L501.9985, L503.0106, L503.6030 ####[facility] [address] [place], [address] Urea nitrogen [Mass/Vol] 106 mg/dL Invalid Interpretation Code 4-19 [facility] Comment on above: Result Comment: Crit ical Result(s) Called at: by:??Results read back bysame.Critical Result(s) Called to Zoraida PENNINGTON (MS3): byLebron.Netor:??Results read back by same. Performed By: #### L 503.6550, L501.3620, L100.0100, L500.4050, L501.9985, L503.0106, L503.6030 ####[facility] [address] [place], [address] Ferritinon 03-08-2025 Ferritin [Mass/Vol] 270 ng/mL Normal 22-378 [facility] Comment on above: Performed By: #### L 503.6550, L501.3620, L100.0100, L500.4050, L501.9985, L503.0106, L503.6030 ####[facility] [address] [place], [address] HH, Hemoglobin AND Hematocri ton 03-08-2025 Hematocrit (Bld) [Volume fraction] 24.0 % Low 37-47 [facility] Comment on above: Performed By: #### L 100.0600 ####[facility] [address] [place], [address] Hemoglobin (Bld) [Mass/Vol] 7.7 g/dL Low 12.0-15.0 [facility] Comment on above: Performed By: #### L 100.0600 ####[facility] [address] [place], [address] Hemoglobin A1con 04-20-2025 HbA1c (Bld) [Mass fraction] 6.5 % High <=5.6 [facility] Comment on above: Result Comment: Norm al < 5.7 % Prediabetic 5.7 - 6.4 % Diabetic >or= 6.5 % Please note range changes. Performed By: #### L 503.6550, L501.3620, L100.0100, L500.4050, L501.9985, L503.0106, L503.6030 ####[facility] [address] [place], [place], [id number] Hemoglobin A1c percentageOrd ered By: Maddie Merchant on 03-08-2025 HbA1c (Bld) [Mass fraction] 6.5 % High <5.7 [facility] Comment on above: Normal < 5.7 % Predi abetic 5.7 - 6.4 % Diabetic >or= 6.5 % Please note range changes. Iron measurement (mass/mass) Ordered By: Maddie Merchant on 03-08-2025 Iron (Unsp spec) [Mass/Mass] 18 ug/dL Low 50-170 [facility] Iron+Iron Binding Capacityon 03-08-2025 TIBC TNP Normal 250-450 [facility] Comment on above: Performed By: #### L 503.6550, L501.3620, L100.0100, L500.4050, L501.9985, L503.0106, L503.6030 ####[facility] [address] [place], [place], [id number] Laboratory - Chemistry and C hemistry - challengeOrdered By: Maddie Merchant on 03-08-2025 AST [Catalytic activity/Vol] 45 U/L High <32 [facility] No Panel InformationOrdered By: Maddie Merchant on 03-08-2025 Unsaturated Iron Binding Capacity 150 ug/dL Low 228-428 [facility] 45 U/L High <32 [facility] 150 ug/dL Low 228-428 [facility] Serum globulin measurementOr dered By: Maddie Merchant on 03-08-2025 Globulin (S) [Mass/Vol] 2.4 g/dL 2.2-4.2 [facility] Serum or plasma alanine anaya otransferase (ALT) measurementOrdered By: Maddie Merchant on 03-08-2025 ALT [Catalytic activity/Vol] 48 U/L High <35 [facility] Serum or plasma albumin natalia urement (mass/volume)Ordered By: Maddie Merchant on 03-08-2025 Albumin [Mass/Vol] 2.6 g/dL Low 3.4-4.8 [facility] Serum or plasma albumin/glob ulin mass ratioOrdered By: Maddie Merchant on 03-08-2025 Albumin/Globulin [Mass ratio] 1.1 {ratio} 0.9-2.4 [facility] Serum or plasma alkaline chelsie sphatase measurementOrdered By: [facility] Shonda on 03-08-2025 ALP [Catalytic activity/Vol] 58 U/L 35-104 [facility] Serum or plasma ferritin areli surement (mass/volume)Ordered By: Maddie Merchant on 03-08-2025 Ferritin [Mass/Vol] 270 ng/mL 22-378 [facility] Serum or plasma iron saturat ion measurement (mass fraction)Ordered By: Maddie Merchant on 03-08-2025 Iron saturation [Mass fraction] 11.0 % Low 13-59 [facility] Total proteinOrdered By: Aut laila Merchant on 03-08-2025 Protein [Mass/Vol] 5.1 g/dL Low 5.9-8.4 [facility] Vitamin B12on 03-08-2025 Cobalamin (Vitamin B12) [Mass/Vol] 3538 pg/mL High 180-914 [facility] Comment on above: Performed By: #### L 503.5550, L501.3620, L100.0100, L500.4050, L501.9985, L503.0106, L503.6030 ####[facility] [address] [place], [address] Vitamin B12 ser/plasOrdered By: Maddie Merchant on 03-08-2025 Cobalamin (Vitamin B12) [Mass/Vol] 3538 pg/mL High 180-914 [facility] 12 Lead EKGon 03-07-2025 12 Lead EKG Normal [facility] Absolute neutrophil countOrd ered By: Megan Anderson on 03-07-2025 Neutrophils (Bld) [#/Vol] 12.9 10*3/uL High 2.0-7.7 [facility] Anion gap in Serum or Plasma Ordered By: Megan Anderson on 03-07-2025 Anion gap [Moles/Vol] 18 mmol/L High 5-15 [facility] BUN/creatinine ratioOrdered By: Megan Anderson on 03-07-2025 Urea nitrogen/Creatinine [Mass ratio] 51.2 mg/mg High 10-20 [facility] Basic Metabolic Profile (BMP )on 03-07-2025 BUN/CRE 51.2 RATIO High - [facility] Comment on above: Performed By: #### L 500.2500, L100.0100, L501.3620 ####[facility] [address] [place], [address] Calcium [Mass/Vol] 8.8 mg/dL Normal 7.6-11.0 [facility] Comment on above: Performed By: #### L 500.2500, L100.0100, L501.3620 ####[facility] [address] [place], [address] Chloride [Moles/Vol] 105 mmol/L Normal 98-108 [facility] Comment on above: Performed By: #### L 500.2500, L100.0100, L501.3620 ####[facility] [address] [place], [address] CO2 [Moles/Vol] 16.8 mmol/L Low 21.0-32.0 [facility] Comment on above: Performed By: #### L 500.2500, L100.0100, L501.3620 ####[facility] [address] [place], [address] Creatinine [Mass/Vol] 2.54 mg/dL High 0.70-1.20 [facility] Comment on above: Performed By: #### L 500.2500, L100.0100, L501.3620 ####[facility] [address] [place], [address] ECRCL 20.75 ml/min Low 50-250 [facility] Comment on above: Performed By: #### L 500.2500, L100.0100, L501.3620 ####[facility] [address] [place], [address] GAP 18 High 5-15 [facility] Comment on above: Performed By: #### L 500.2500, L100.0100, L501.3620 ####[facility] [address] [place], [address] GFR/1.73 sq M.predicted among non-blacks MDRD (S/P/Bld) [Vol rate/Area] 19 mL/min/{1.73_m2} Low >60 [facility] Comment on above: Result Comment: mL/m in/1.73m2 CKD-EPI Creatinine Equation (2020) Performed By: #### L 500.2500, L100.0100, L501.3620 ####[facility] [address] [place], [address] Glucose [Mass/Vol] 178 mg/dL High 70-99 [facility] Comment on above: Performed By: #### L 500.2500, L100.0100, L501.3620 ####[facility] [address] [place], [address] Potassium [Moles/Vol] 4.5 mmol/L Normal 3.3-5.1 [facility] Comment on above: Performed By: #### L 500.2500, L100.0100, L501.3620 ####[facility] [address] [place], [address] Sodium [Moles/Vol] 140 mmol/L Normal 133-145 [facility] Comment on above: Performed By: #### L 500.2500, L100.0100, L501.3620 ####[facility] [address] [place], [address] Urea nitrogen [Mass/Vol] 130 mg/dL Invalid Interpretation Code 03-07 [facility] Comment on above: Result Comment: Crit ical Result(s) Called at: by:??Results read back bysanc.Critical Result(s) Called ACOLE at: 1532 by:MARILUMAN??Results read back by same. Performed By: #### L 500.2500, L100.0100, L501.3620 ####[facility] [address] [place], [address] Basophil percentageOrdered B y: Meganayde Anderson on 03-07-2025 Basophils/100 WBC (Bld) 0.3 % 0-1 [facility] Bilirubin Test strip Ql (U)O rdered By: Meganayde Anderson on 03-07-2025 Bilirubin Ql (U) Negative Negative [facility] Bilirubin directOrdered By: Maddie Merchant on 03-07-2025 Bilirubin.direct [Mass/Vol] 0.25 mg/dL 0.00-0.30 [facility] CBC W/Diff, Automatedon 02-17 Absolute Lymph 0.76 X10 3/uL Low 0.83-4.51 [facility] Comment on above: Performed By: #### L 500.2500, L100.0100, L501.3620 ####[facility] [address] [place], [address] Absolute Neut 12.9 X10 3/uL High 2.0-7.7 [facility] Comment on above: Performed By: #### L 500.2500, L100.0100, L501.3620 ####[facility] [address] [place], [address] Basophils/100 WBC (Bld) 0.3 % Normal 0-1 [facility] Comment on above: Performed By: #### L 500.2500, L100.0100, L501.3620 ####[facility] [address] [place], [address] Eosinophils/100 WBC (Bld) 0.4 % Normal 0-5 [facility] Comment on above: Performed By: #### L 500.2500, L100.0100, L501.3620 ####[facility] [address] [place], [address] Erythrocyte distribution width (RBC) [Ratio] 14.5 % Normal 11.6-14.6 [facility] Comment on above: Performed By: #### L 500.2500, L100.0100, L5.3620 ####[facility] [address] [place], [address] Hematocrit (Bld) [Volume fraction] 27.2 % Low 37-47 [facility] Comment on above: Performed By: #### L 500.2500, L100.0100, [id number] ####[facility] [address] [place], [address] Hemoglobin (Bld) [Mass/Vol] 8.7 g/dL Low 12.0-15.0 [facility] Comment on above: Performed By: #### L 500.2500, L100.0100, [id number] ####[facility] [address] [place], [address] IG% 1.000 High 0.0-0.9 [facility] Comment on above: Result Comment: IG% - Immature Granulocytes (promyelocytes, myelocytes andmetamyelocytes) > 1% indicates that a LEFT SHIFT is Present. Performed By: #### L 500.2500, L100.0100, L501.3620 ####[facility] [address] [place], [address] Lymphocytes/100 WBC (Bld) 5.2 % Low 19-41 [facility] Comment on above: Performed By: #### L 500.2500, L100.0100, L501.3620 ####[facility] [address] [place], [address] MCH (RBC) [Entitic mass] 28.3 pg Normal 27.0-32.0 [facility] Comment on above: Performed By: #### L 500.2500, L100.0100, L501.3620 ####[facility] [address] [place], [address] MCHC (RBC) [Mass/Vol] 32.0 g/dL Normal 32-36 [facility] Comment on above: Performed By: #### L 500.2500, L100.0100, L501.3620 ####[facility] [address] [place], [address] MCV (RBC) [Entitic vol] 88.6 fL Normal 81-99 [facility] Comment on above: Performed By: #### L 500.2500, L100.0100, L501.3620 ####[facility] [address] [place], [address] Monocytes/100 WBC (Bld) 5.3 % Normal 0-10 [facility] Comment on above: Performed By: #### L 500.2500, L100.0100, L501.3620 ####[facility] [address] [place], [address] Neutrophils/100 WBC (Bld) 87.8 % High 47-70 [facility] Comment on above: Performed By: #### L 500.2500, L100.0100, L501.3620 ####[facility] [address] [place], [address] Nucleated RBC (Bld) [#/Vol] 0 10*3/uL Normal 0-5 [facility] Comment on above: Performed By: #### L 500.2500, L100.0100, L501.3620 ####[facility] [address] [place], [address] Platelet mean volume (Bld) [Entitic vol] 11.3 fL Normal 6.2-12.0 [facility] Comment on above: Performed By: #### L 500.2500, L100.0100, L501.3620 ####[facility] [address] [place], [address] Platelets (Bld) [#/Vol] 216 10*3/uL Normal 150-450 [facility] Comment on above: Performed By: #### L 500.2500, L100.0100, L501.3620 ####[facility] [address] [place], [address] RBC (Bld) [#/Vol] 3.07 10*6/uL Low 4.2-5.4 [facility] Comment on above: Performed By: #### L 500.2500, L100.0100, L501.3620 ####[facility] [address] [place], [address] RDW SD 45.6 fl High 35.1-43.9 [facility] Comment on above: Performed By: #### L 500.2500, L100.0100, L501.3620 ####[facility] [address] [place], [address] WBC (Bld) [#/Vol] 14.7 10*3/uL High 4.4-11.0 [facility] Comment on above: Performed By: #### L 500.2500, L100.0100, L501.3620 ####[facility] [address] [place], [address] CPK Total, Creatine Kinaseon 03-07-2025 CPK TOTAL 837 U/L High 24-195 [facility] Comment on above: Performed By: #### L 500.2500, L100.0100, L501.3620 ####[facility] [address] [place], [address] Carbon dioxide, total [Moles /volume] in Central venous bloodOrdered By: Megan Anderson on 03-07-2025 CO2 [Moles/Vol] 16.8 mmol/L Low 21.0-32.0 [facility] Chest 1 View (Portable)on Chest 1 View (Portable) Normal [facility] Chloride assayOrdered By: Teri Anderson on 03-07-2025 Chloride [Moles/Vol] 105 mmol/L 98-108 [facility] Emergency Department Summary on 03-07-2025 Emergency Department Summary Normal [facility] Eosinophil percentageOrdered By: Megan Anderson on 03-07-2025 Eosinophils/100 WBC (Bld) 0.4 % 0-5 [facility] Epithelial cells.squamous LM Ql (Urine sed)Ordered By: Megan Anderson on 03-07-2025 Epithelial cells.squamous LM.HPF (Urine sed) [#/Area] 0 /[HPF] 5-10 [facility] Erythrocyte distribution wid th (RBC) [Ratio]Ordered By: Megan Anderson on 03-07-2025 Erythrocyte distribution width (RBC) [Entitic vol] 45.6 fL High 35.1-43.9 [facility] Erythrocyte distribution wid th ratioOrdered By: Megan Anderson on 03-07-2025 Erythrocyte distribution width (RBC) [Ratio] 14.5 % 11.6-14.6 [facility] Estimation of creatinine chirag aranceOrdered By: Megan Anderson on 03-07-2025 Estimated Creatinine Clearance Calc 20.75 ml/min Low 50-250 [facility] GFR/1.73 sq M.predicted sadia g non-blacks MDRD (S/P/Bld) [Vol rate/Area]Ordered By: Megan Anderson on 03-07-2025 Estimated GFR (MDRD) Non-Af Amer 19 Low >60 [facility] Comment on above: mL/min/1.73m2 CKD-EP I Creatinine Equation (2020) Glucose Ql (U)Ordered By: Teri Anderson on 03-07-2025 Urine Glucose (UA) Normal mg/dl Normal [facility] H AND P Exam - Hospitaliston 03-07-2025 H&P Exam - Hospitalist Normal [facility] HH, Hemoglobin AND Hematocri ton 03-07-2025 Hematocrit (Bld) [Volume fraction] 25.0 % Low 37-47 [facility] Comment on above: Performed By: #### L 100.0600 ####[facility] [address] [place], [address] Hemoglobin (Bld) [Mass/Vol] 8.3 g/dL Low 12.0-15.0 [facility] Comment on above: Performed By: #### L 100.0600 ####[facility] [address] [place], [address] HIP, UNI W/ Pelvis 2-3 Views on 03-07-2025 HIP, UNI W/ Pelvis 2-3 Views Normal [facility] Hematocrit Auto (Bld) [Volum e fraction]Ordered By: Megan Anderson on 03-07-2025 Hematocrit (Bld) [Volume fraction] 27.2 % Low 37-47 [facility] Hemoglobin measurementOrdere d By: Megan Anderson on 03-07-2025 Hemoglobin (Bld) [Mass/Vol] 8.7 g/dL Low 12.0-15.0 [facility] Immature granulocytes/100 WB C Auto (Bld)Ordered By: eMgan Anderson on 03-07-2025 Immature granulocytes/100 WBC (Bld) 1.000 % High 0.0-0.9 [facility] Comment on above: IG% - Immature Granu locytes (promyelocytes, myelocytes and metamyelocytes) > 1% indicates that a LEFT SHIFT is Present. Ketones Test strip Ql (U)Ord ered By: Megan Anderson on 03-07-2025 Ketones Ql (U) 5 mg/dl High Negative [facility] Liver Profileon 03-07-2025 Albumin [Mass/Vol] 3.1 g/dL Low 3.4-4.8 [facility] Comment on above: Order Comment: Comme nts: May add to ED labsComments: may add to ED labs Performed By: #### L 501.2300, L500.3400, L501.5200 ####[facility] [address] [place], [address] ALK PHOS 66 U/L Normal 35-104 [facility] Comment on above: Order Comment: Comme nts: May add to ED labsComments: may add to ED labs Performed By: #### L 501.2300, L500.3400, L501.5200 ####[facility] [address] [place], [address] ALT [Catalytic activity/Vol] 60 U/L High <=34 [facility] Comment on above: Order Comment: Comme nts: May add to ED labsComments: may add to ED labs Performed By: #### L 501.2300, L500.3400, L501.5200 ####[facility] [address] [place], [address] AST [Catalytic activity/Vol] 52 U/L High <=31 [facility] Comment on above: Order Comment: Comme nts: May add to ED labsComments: may add to ED labs Performed By: #### L 501.2300, L500.3400, L501.5200 ####[facility] [address] [place], [address] Bilirubin [Mass/Vol] 0.42 mg/dL Normal 0.00-1.30 [facility] Comment on above: Order Comment: Comme nts: May add to ED labsComments: may add to ED labs Performed By: #### L 501.2300, L500.3400, L501.5200 ####[facility] [address] [place], [address] Bilirubin.direct [Mass/Vol] 0.25 mg/dL Normal 0.00-0.30 [facility] Comment on above: Order Comment: Comme nts: May add to ED labsComments: may add to ED labs Performed By: #### L 501.2300, L500.3400, L501.5200 ####[facility] [address] [place], [address] Globulin (S) [Mass/Vol] 2.8 g/dL Normal 2.2-4.2 [facility] Comment on above: Order Comment: Comme nts: May add to ED labsComments: may add to ED labs Performed By: #### L 501.2300, L500.3400, L501.5200 ####[facility] [address] [place], [address] T PROT 5.9 g/dL Normal 5.9-8.4 [facility] Comment on above: Order Comment: Comme nts: May add to ED labsComments: may add to ED labs Performed By: #### L 501.2300, L500.3400, L501.5200 ####[facility] [address] [place], [address] Lower GI hemoglobin IA Ql (S tl)Ordered By: Megan Anderson on 03-07-2025 Stool Occult Blood (ERICA) Positive Abnormal [facility] Lymphocytes Auto (Unsp spec) [#/Vol]Ordered By: Megan Anderson on 03-07-2025 Lymphocytes (Bld) [#/Vol] 0.76 10*3/uL Low 0.83-4.51 [facility] Lymphocytes/100 WBC Auto (Un sp spec)Ordered By: Megan Anderson on 03-07-2025 Lymphocytes/100 WBC (Bld) 5.2 % Low 19-41 [facility] MCV (mean corpuscular volume ) determinationOrdered By: Megan Anderson on 03-07-2025 MCV (RBC) [Entitic vol] 88.6 fL 81-99 [facility] Magnesiumon 03-07-2025 Magnesium [Mass/Vol] 2.9 mg/dL High 1.5-2.2 [facility] Comment on above: Order Comment: Comme nts: May add to ED labsComments: may add to ED labs Performed By: #### L 501.1510, L500.3400, L501.5200 ####[facility] [address] [place], [address] Magnesium measurement (mass/ volume)Ordered By: Maddie Merchant on 03-07-2025 Magnesium (Unsp spec) [Mass/Vol] 2.9 mg/dL High 1.5-2.2 [facility] Mean corpuscular hemoglobin (MCH) determinationOrdered By: Megan Anderson on 03-07-2025 MCH (RBC) [Entitic mass] 28.3 pg 27.0-32.0 [facility] Mean corpuscular hemoglobin concentration (MCHC) determinationOrdered By: Megan Anderson on 03-07-2025 MCHC (RBC) [Mass/Vol] 32.0 g/dL 32-36 [facility] Mean platelet volume determi nationOrdered By: Megan Anderson on 03-07-2025 Platelet mean volume (Bld) [Entitic vol] 11.3 fL 6.2-12.0 [facility] Microscopic analysis of urin e for red blood cells (RBC)Ordered By: Megan Anderson on 03-07-2025 Microscopic analysis of urine for red blood cells (RBC) 0 SEEN /hpf 0-5 [facility] Urine RBC 0 SEEN /hpf 0-5 [facility] Monocyte percentageOrdered B y: Megan nAderson on 03-07-2025 Monocytes/100 WBC (Bld) 5.3 % 0-10 [facility] Mucus LM Ql (Urine sed)Order ed By: Megan Anderson on 03-07-2025 Mucus Ql (Urine sed) 0 SEEN /hpf [facility] Neutrophil percentageOrdered By: Megan Anderson on 03-07-2025 Neutrophils/100 WBC (Bld) 87.8 % High 47-70 [facility] Nitrite Test strip Ql (U)Ord ered By: Megan Anderson on 03-07-2025 Nitrite Ql (U) Positive High Negative [facility] Nucleated red blood cell per centageOrdered By: Megan Anderson on 03-07-2025 Nucleated RBC/100 WBC (Bld) [Ratio] 0 % 0-5 [facility] Phosphoruson 03-07-2025 Phosphate [Mass/Vol] 5.0 mg/dL High 2.7-4.5 [facility] Comment on above: Order Comment: Comme nts: May add to ED labsComments: may add to ED labs Performed By: #### L 501.2300, L500.3400, L501.5200 ####[facility] [address] [place], [address] Platelet countOrdered By: Teri Anderson on 03-07-2025 Platelets (Bld) [#/Vol] 216 10*3/uL 150-450 [facility] Potassium (Unsp spec) [Mass/ Vol]Ordered By: Megan Anderson on 03-07-2025 Potassium [Moles/Vol] 4.5 mmol/L 3.3-5.1 [facility] Protein Test strip Ql (U)Ord ered By: Megan Anderson on 03-07-2025 Protein Ql (U) 30 mg/dl High Negative [facility] RBC Auto (Bld) [#/Vol]Ordere d By: Megan Anderson on 03-07-2025 RBC (Bld) [#/Vol] 3.07 10*6/uL Low 4.2-5.4 [facility] Serum creatinine measurement (mass/volume)Ordered By: Megan Anderson on 03-07-2025 Creatinine [Mass/Vol] 2.54 mg/dL High 0.70-1.20 [facility] Serum glucose measurement (m ass/volume)Ordered By: Megan Anderson on 03-07-2025 Glucose [Mass/Vol] 178 mg/dL High 70-99 [facility] Serum or plasma calcium natalia urement (mass/volume)Ordered By: Megan Anderson on 03-07-2025 Calcium [Mass/Vol] 8.8 mg/dL 7.6-11.0 [facility] Serum or plasma creatine kin ase activityOrdered By: Megan Anderson on 03-07-2025 CK [Catalytic activity/Vol] 837 U/L High 24-195 [facility] Serum or plasma urea nitroge n measurement (mass/volume)Ordered By: Megan Anderson on 03-07-2025 Urea nitrogen [Mass/Vol] 130 mg/dL High - [facility] Comment on above: Critical Result(s) C alled at: by: Results read back by same.Critical Result(s) Called ACOLE at: 1532 by: CHRISTIN Results read back by same. Sodium levelOrdered By: Megan Anderson on 03-07-2025 Sodium [Moles/Vol] 140 mmol/L 133-145 [facility] Squamous epithelial cells de tection in urine sediment by light microscopyOrdered By: Megan Anderson on 03-07-2025 Epithelial cells.squamous LM Ql (Urine sed) 0 SEEN /hpf 5-10 [facility] Stool Occult Blood iFOBon STOB Positive Normal [facility] Comment on above: Performed By: #### M 100.7900 ####[facility] [address] [facility] [id number] Stool gastrointestinal hemog lobin detection by immunologic methodOrdered By: Megan Anderson on 03-07-2025 Lower GI hemoglobin IA Ql (Stl) Positive Abnormal [facility] Type AND Screenon 03-07-2025 ABO and Rh group Nom (Bld) Blood group A Rh(D) positive Normal [facility] Comment on above: Order Comment: HGI Performed By: #### B TS ####[facility] [address] [place], [place], [id number] Urinalysis, Completeon 03-07 BACTERIA 1+ /hpf Normal None Seen [facility] Comment on above: Order Comment: COLLE CTOR TO SPECIFY Performed By: #### L 400.0001 ####[facility] [address] [facility] [place], [place], [id number] WBC >100 SEEN Normal 0-5 [facility] Comment on above: Order Comment: COLLE CTOR TO SPECIFY Performed By: #### L 400.0001 ####[facility] [address] [place], [address] EPI,SQUAMOUS 0 SEEN Normal 5-10 [facility] Comment on above: Order Comment: CORRIE CTOR TO SPECIFY Performed By: #### L 400.0001 ####[facility] [address] [place], [address] Mucus Ql (Urine sed) 0 SEEN Normal [facility] Comment on above: Order Comment: CORRIE CTOR TO SPECIFY Performed By: #### L 400.0001 ####[facility] [address] [place], [address] RBC 0 SEEN Normal 0-5 [facility] Comment on above: Order Comment: CORRIE CTOR TO SPECIFY Performed By: #### L 400.0001 ####[facility] [address] [place], [place], [address] Urine blood detectionOrdered By: Megan Anderson on 03-07-2025 Urine Occult Blood 150 /ul High Negative [facility] Urine clarityOrdered By: Carmen Anderson on 03-07-2025 Clarity (U) Cloudy Clear [facility] Urine color determinationOrd ered By: Megan Anderson on 03-07-2025 Color (U) Yellow Yellow [facility] Urine cultureOrdered By: Mervin Becker on 03-07-2025 Bacteria identified Cx Nom (U) Klebsiella oxytoca Abnormal [facility] Urine glucose detectionOrder ed By: Megan Anderson on 03-07-2025 Glucose Ql (U) Normal mg/dl Normal [facility] Urine leukocyte esterase det ection by dipstickOrdered By: Megan Anderson on 03-07-2025 Leukocyte esterase Test strip Ql (U) 500 /ul High Negative [facility] Urine pHOrdered By: Megan louis on 03-07-2025 pH (U) 6.0 [pH] 5.0 - 8.0 [facility] Urine sediment bacteria coun t by microscopy (number/high power field)Ordered By: Megan Anderson on 03-07-2025 Bacteria LM.HPF (Urine sed) [#/Area] 1 /[HPF] None Seen [facility] Urine specific gravity measu rementOrdered By: Megan Frenchmissy on 03-07-2025 Specific gravity (U) [Rel density] 1.015 1.002-1.030 [facility] Urine urobilinogen measureme ntOrdered By: Megan Justin on 03-07-2025 Urobilinogen Ql (U) Normal mg/dl Normal [facility] Urobilinogen Ql (U)Ordered B y: Megan Frenchmissy on 03-07-2025 Urine Urobilinogen Normal mg/dl Normal [facility] White blood cell (WBC) count Ordered By: Megan Justin on 03-07-2025 WBC (Bld) [#/Vol] 14.7 10*3/uL High 4.4-11.0 [facility] White blood cell countOrdere d By: Megan nAderson on 03-07-2025 Urine WBC >100 SEEN /hpf 0-5 [facility] White blood cell count >100 SEEN /hpf 0-5 [facility] Culture, Anaerobic Any Sourc adonis 2025 CUAN Normal [facility] Comment on above: Performed By: #### M 100.3000, M100.4001, ####[facility] [address] [place], [address] Wound Cultureon 02-28-2025 WC Normal [facility] Comment on above: Performed By: #### M 100.3000, M100.4001, M1 ####[facility] [address] [place], [address] Gram Stainon 02-27-2025 GS LEFT FOOT WOUND GRAM STAIN Gram Stain No Epithelial cells 1+ Gram positive cocci 1+ White Blood Cells Normal [facility] Comment on above: Performed By: #### M 100.3000, M100.4001, M1 ####[facility] [address] [place], [address] Anaerobic cultureOrdered By: Patel Irene on 02-26-2025 Bacteria identified Anaer cx Nom (Unsp spec) Anaerobic cocci Abnormal [facility] Bacteria identified Anaer cx Nom (Unsp spec)Ordered By: Patel Irene on 02-26-2025 Anaerobic Culture Anaerobic cocci Abnormal [facility] Gram stainOrdered By: Keri Irene on 02-26-2025 Microscopic observation Gram stain Nom (Unsp spec) [facility] Routine wound cultureOrdered By: Patel Irene on 02-26-2025 Microbial culture, routine Meth. resistant Staph. aureus Abnormal [facility] Wound Culture Meth. resistant Stap h. aureus Abnormal [facility] Wound Cultureon 02-19-2025 WC Normal [facility] Comment on above: Performed By: #### M 100.1999, M100.3000 ####[facility] [address] [place], [address] Gram Stainon 02-17-2025 GS Gram Stain No White Blood Cells No organisms seen Normal [facility] Comment on above: Performed By: #### M 100.1999, M100.3000 ####[facility] [address] [place], [address] Decalcification bone/plaqueo n 02-16-2025 Decalcification bone/plaque Normal [facility] Comment on above: Performed By: #### P DEC ####[facility] [address] [place], [address] Gram stainOrdered By: Rishi Vasquez on 02-16-2025 Microscopic observation Gram stain Nom (Unsp spec) [facility] Routine wound cultureOrdered By: Rishi Vasquez on 02-16-2025 Microbial culture, routine Meth. resistant Staph. aureus Abnormal [facility] Wound Culture Meth. resistant Stap h. aureus Abnormal [facility] Wound Culture Negative Abnormal [facility] Wound Cultureon 02-06-2025 WC Normal [facility] Comment on above: Performed By: #### M 100.3000, M100.2000 ####[facility] [address] [place], [address] Gram Stainon 02-04-2025 GS Positive Normal [facility] Comment on above: Performed By: #### M 100.3000, ####[facility] [address] [place], [address] Gram stainOrdered By: Rishi Vasquez on 02-03-2025 Microscopic observation Gram stain Nom (Unsp spec) [facility] Routine wound cultureOrdered By: Rishi Vasquez on 02-03-2025 Microbial culture, routine Meth. resistant Staph. aureus Abnormal [facility] Wound Culture Meth. resistant Stap h. aureus Abnormal [facility] Lower Ext Art Exam w/o Exerc kris 01-06-2025 Lower Ext Art Exam w/o Exercis Normal [facility] Culture, Anaerobic Any Sourc adonis 01-03-2025 CUAN ONLY AN AEROBIC SWAB WAS RECEIVED FOR CULTURE. GROWTH OF ANAEROBES MAY BE INHIBITED. No anaerobic bacteria isolated. Normal [facility] Comment on above: Performed By: #### M 100.4001, M1.1999, M13000 ####[facility] [address] [place], [address] Wound Cultureon 01-02-2025 WC Normal [facility] Comment on above: Performed By: #### M 100.4001, M1.1999, M1.3000 ####[facility] [address] [place], [address] Anaerobic cultureOrdered By: Patel Irene on 12-31-2024 Bacteria identified Anaer cx Nom (Unsp spec) No anaerobic bacteria isolated. [facility] Bacteria identified Anaer cx Nom (Unsp spec)Ordered By: Patel Irene on 12-31-2024 Anaerobic Culture No anaerobic bacteri a isolated. [facility] Gram Stainon 12-31-2024 GS ONLY AN AEROBIC SWAB WAS RECEIVED FOR CULTURE. GROWTH OF ANAEROBES MAY BE INHIBITED. Gram Stain 2+ Gram positive cocci 2+ Red Blood Cells Normal [facility] Comment on above: Performed By: #### M 100.4001, M100.1999, M1.3000 ####[facility] [address] [place], [address] Gram stainOrdered By: Keri Irene on 12-31-2024 Microscopic observation Gram stain Nom (Unsp spec) [facility] Routine wound cultureOrdered By: Patel Irene on 12-31-2024 Microbial culture, routine Meth. resistant Staph. aureus Abnormal [facility] Wound Culture Meth. resistant Stap h. aureus Abnormal [facility] [id number] 12-24-2024 [facility] Misc. COMMENT Normal . [facility] Comment on above: Order Comment: [id number] 1WOUND CULTURE Result Comment: Test Ordered: [id number] Anaerobic/Aerobic/Gram StainAnaerobic Culture Note: CB Final report [...] cephalosporins, clindamycin,and trimethoprim-sulfamethoxazole are not effectiveclinically. (CLSI, E331-U45, 2016)Light growthEnterococci susceptible to penicillin are predictablysusceptible to ampicillin, amoxicillin, ampicillin-sulbactam, amoxicillin-clavulanate, and piperacillin-tazobactam for vkg-gjav-szsjkaxoq producing enterococci.(CLSI 2018)Antimicrobial Susceptibility Comment CB Reference [...] No organisms seen Reference Range: .Performed at: CB - [facility] [address] [id number] Director: Chele Santoyo PhD, Phone: [phone] Performed By: #### L 3410.9998 ####[facility] [address] [place], [address] CNOVon 12-05-2024 CNOV Office Visit ([facility]AMPWS ) -------- GELY NEWMAN ([id number]) 1950 F Date Time Provider Department 12/05/24 9:00 [facility] During your visit today, we recorded [...] Seeing Dr. Franco for pain mgmt at [facility] and she is now taking Lyrica [...] mellitus (HCC) Coronary artery disease Dr. Ch Implementation Services Analyst, 90% blockage- unable to do stenting Diabetes mellitus type 2 in obese Diabetic feet (HCC) Gangrene (HCC) 2012 RIGHT FOOT Hypertension Mild non proliferative diabetic retinopathy (HCC) 06/11/2013 Both eyes, Dr. Ortiz [facility]-03/25/2020 left mild, right moderate Multiple thyroid nodules last US 01/2015 Peripheral artery disease (HCC) due to Diabetes mellitus, Dr. Kwaku Moscoso Rotator cuff syndrome of left shoulder Dr. Regi Thompson [facility] PAST SURGICAL HISTORY Procedure Laterality Date [...] ROTATOR CUFF REPAIR 03/11/[address] [facility] SLCTV CATHJ EA 1ST ORD ABDL PEL/LXTR ART BRNCH 06-07-16 APLL Social History Tobacco Use Smoking status: Former Current packs/day: 0.00 Average packs/day: 0.5 packs/day for 45.0 years (22.5 ttl pk-yrs) Types: Cigarettes Start date: 12/20/1967 Quit date: 12/20/2012 Years since quittin.9 Smokeless tobacco: Never Substance Use Topics Alcohol use: No Drug use: No FAMILY H (more content not included)... Normal [facility] 25(OH)D3 SerPl-ncon 2024 25-hydroxyvitamin D3 [Mass/Vol] 62.6 ng/mL Normal 31.0-80.0 [facility] Comment on above: Order Comment: Speci men Type: BLOOD SPECIMEN Ordering Facility: [facility] Address: [address] [place] [address] Result Comment: Clas sification of 25 OH Vitamin D status: Deficiency/Insufficiency: < or = 30 ng/ml. Sufficiency/Optimal Levels: 31-80 ng/mL Toxicity: > 100 ng/mL. Test performed by chemiluminescent immunoassay. Performed By: #### 2 132-9 #### [facility] CLIA [id number] [address] [place] [address] [place] CBC panel Auto (Bld)on 12-01 Erythrocyte distribution width (RBC) [Ratio] 12.5 % Normal 11.5-15.0 [facility] Comment on above: Order Comment: Speci men Type: BLOOD SPECIMENOrdering Facility: [facility] Address: [address] [place] [address] Performed By: #### 5 8410-2 ####[facility]CLIA [id number] [place] [address] [place] Hematocrit (Bld) [Volume fraction] 37.8 % Normal 36.0-46.0 [facility] Comment on above: Order Comment: Speci men Type: BLOOD SPECIMENOrdering Facility: [facility] Address: [address] [place] [address] Performed By: #### 5 8410-2 ####[facility]CLIA [id number] [place] [address] [place] Hemoglobin (Bld) [Mass/Vol] 12.1 g/dL Normal 11.5-15.5 [facility] Comment on above: Order Comment: Speci men Type: BLOOD SPECIMENOrdering Facility: [facility] Address: [address] [place] [address] Performed By: #### 5 8410-2 ####[facility]CLIA [id number] [place] [address] [place] MCH (RBC) [Entitic mass] 31.2 pg Normal 26.0-34.0 [facility] Comment on above: Order Comment: Speci men Type: BLOOD SPECIMENOrdering Facility: [facility] Address: [address] [place] [address] Performed By: #### 5 8410-2 ####[facility] LABIA [id number] [place] [address] [place] MCHC (RBC) [Mass/Vol] 32.0 g/dL Normal 30.5-36.0 [facility] Comment on above: Order Comment: Speci men Type: BLOOD SPECIMENOrdering Facility: [facility] Address: [address] [place] [address] Performed By: #### 5 8410-2 ####[facility] [id number] [place] [address] [place] MCV (RBC) [Entitic vol] 97.4 fL Normal 80.0-100.0 [facility] Comment on above: Order Comment: Speci men Type: BLOOD SPECIMENOrdering Facility: [facility] Address: [address] [place] [address] Performed By: #### 5 8410-2 ####[facility] [id number] [place] [address] [place] Nucleated RBC (Bld) [#/Vol] 10*3/uL Normal <0.01 [facility] Comment on above: Order Comment: Speci men Type: BLOOD SPECIMENOrdering Facility: [facility] Address: [address] [place] [address] Performed By: #### 5 8410-2 ####[facility] [id number] [place] [address] [place] Platelet mean volume (Bld) [Entitic vol] 12.3 fL Normal 9.0-12.7 [facility] Comment on above: Order Comment: Speci men Type: BLOOD SPECIMENOrdering Facility: [facility] Address: [address] [place] [address] Performed By: #### 5 8410-2 ####[facility]CLIA [id number] [address] [address] [place] Platelets (Bld) [#/Vol] 160 10*3/uL Normal 150-400 [facility] Comment on above: Order Comment: Speci men Type: BLOOD SPECIMENOrdering Facility: [facility] Address: [address] [place] [address] Performed By: #### 5 8410-2 ####[facility]CLIA [id number] [place] [address] [place] RBC (Bld) [#/Vol] 3.88 10*6/uL Low 3.90-5.20 [facility] Comment on above: Order Comment: Speci men Type: BLOOD SPECIMENOrdering Facility: [facility] Address: [address] [place] [address] Performed By: #### 5 8410-2 ####[facility] LABIA [id number] [place] [address] [place] WBC (Bld) [#/Vol] 5.99 10*3/uL Normal 3.70-11.00 [facility] Comment on above: Order Comment: Speci men Type: BLOOD SPECIMENOrdering Facility: [facility] Address: [address] [place] [address] Performed By: #### 5 8410-2 ####[facility]CLIA [id number] [place] [id number] [place] Comprehensive metabolic 2000 panelon 12-01-2024 Albumin [Mass/Vol] 4.0 g/dL Normal 3.9-4.9 [facility] Comment on above: Order Comment: Speci men Type: BLOOD SPECIMENOrdering Facility: [facility] Address: [address] [place] [address] Performed By: #### 2 4323-8, 3024-7, 40813-9, 3016-3 ####[facility] LABCLIA [id number] [place] [id number] [place] ALP [Catalytic activity/Vol] 67 U/L Normal 34-123 [facility] Comment on above: Order Comment: Speci men Type: BLOOD SPECIMENOrdering Facility: [facility] Address: [address] [place] [address] Performed By: #### 2 4323-8, 3024-7, 13234-3, 3016-3 ####[facility]CLIA [id number] [place] [id number] [place] ALT [Catalytic activity/Vol] 19 U/L Normal 7-38 [facility] Comment on above: Order Comment: Speci men Type: BLOOD SPECIMENOrdering Facility: [facility] Address: [address] [place] [address] Performed By: #### 2 4323-8, 3024-7, 54877-9, 6-3 ####[facility] LABIA [id number] [place] [address] [place] Anion gap [Moles/Vol] 16 mmol/L High 8-15 [facility] Comment on above: Order Comment: Speci men Type: BLOOD SPECIMENOrdering Facility: [facility] Address: [address] [place] [address] Performed By: #### 2 4323-8, 3024-7, 26796-7, 6-3 ####[facility]CLIA [id number] [place] [id number] [place] AST [Catalytic activity/Vol] 31 U/L Normal 13-35 [facility] Comment on above: Order Comment: Speci men Type: BLOOD SPECIMENOrdering Facility: [facility] Address: [address] [place] [address] Performed By: #### 2 4323-8, 3024-7, 16526-1, 3016-3 ####[facility]CLIA [id number] [address] [address] [place] Bilirubin [Mass/Vol] 0.4 mg/dL Normal 0.2-1.3 [facility] Comment on above: Order Comment: Speci men Type: BLOOD SPECIMENOrdering Facility: [facility] Address: [address] [place] [address] Performed By: #### 2 4323-8, 3024-7, 89500-5, 3016-3 ####[facility]CLIA [id number] [place] [address] [place] Calcium [Mass/Vol] 10.0 mg/dL Normal 8.5-10.2 [facility] Comment on above: Order Comment: Speci men Type: BLOOD SPECIMENOrdering Facility: [facility] Address: [address] [place] [address] Performed By: #### 2 4323-8, 3024-7, 91392-8, 6-3 ####[facility]CLIA [id number] [place] [address] [place] Chloride [Moles/Vol] 108 mmol/L High 98-107 [facility] Comment on above: Order Comment: Speci men Type: BLOOD SPECIMENOrdering Facility: [facility] Address: [address] [place] [address] Performed By: #### 2 4323-8, 3024-7, 72120-7, 3015-3 ####[facility]CLIA [id number] [place] [id number] [place] CO2 [Moles/Vol] 20 mmol/L Low 22-30 [facility] Comment on above: Order Comment: Speci men Type: BLOOD SPECIMENOrdering Facility: [facility] Address: [address] [place] [address] Performed By: #### 2 4323-8, 3024-7, 61005-2, 3016-3 ####[facility]CLIA [id number] [place] [id number] [place] Creatinine [Mass/Vol] 1.11 mg/dL High 0.58-0.96 [facility] Comment on above: Order Comment: Johana jarvis Type: BLOOD SPECIMENOrdering Facility: [facility] Address: [address] [place] [address] Performed By: #### 2 4323-8, 3024-7, 73234-1, 3016-3 ####[facility]IA [id number] [place] [address] [place] Creatinine and Glomerular filtration rate.predicted panel (S/P/Bld) 53 mL/min/1.73m??? Low >=60 [facility] Comment on above: Order Comment: Johana jarvis Type: BLOOD SPECIMENOrdering Facility: [facility] Address: [address] [place] [address] Result Comment: Elena mated Glomerular Filtration Rate [...] GFR. Performed By: #### 2 4323-8, 3024-7, 56778-3, 3016-3 ####[facility]IA [id number] [place] [id number] [place] Glucose [Mass/Vol] 79 mg/dL Normal 74-99 [facility] Comment on above: Order Comment: Johana jarvis Type: BLOOD SPECIMENOrdering Facility: [facility] Address: [address] [place] [address] Result Comment: The [place] Diabetes Association (ADA) provides guidance for cutoff [...] Standards of Medical Care in Diabetes 2016, [place] Diabetes Association. Diabetes Care. 2016.39(Suppl 1). Performed By: #### 2 4323-8, 3024-7, 37501-6, 6-3 ####[facility]CLIA [id number] [address] [address] [place] Potassium [Moles/Vol] 4.3 mmol/L Normal 3.7-5.1 [facility] Comment on above: Order Comment: Speci men Type: BLOOD SPECIMENOrdering Facility: [facility] Address: [address] [place] [address] Performed By: #### 2 4323-8, 3024-7, 73292-7, 3015-3 ####[facility]CLIA [id number] [place] [id number] [place] Protein [Mass/Vol] 6.6 g/dL Normal 6.3-8.0 [facility] Comment on above: Order Comment: Elizabethi men Type: BLOOD SPECIMENOrdering Facility: [facility] Address: [address] [place] [address] Performed By: #### 2 4323-8, 3024-7, 37222-3, 3015-3 ####[facility]CLIA [id number] [address] [address] [place] Sodium [Moles/Vol] 144 mmol/L Normal 136-144 [facility] Comment on above: Order Comment: Speci men Type: BLOOD SPECIMENOrdering Facility: [facility] Address: [address] [place] [address] Performed By: #### 2 4323-8, 3024-7, 60538-0, 6-3 ####[facility]CLIA [id number] [place] [address] [place] Urea nitrogen [Mass/Vol] 51 mg/dL High 7-21 [facility] Comment on above: Order Comment: Johana jarvis Type: BLOOD SPECIMENOrdering Facility: [facility] Address: [address] [place] [address] Performed By: #### 2 4323-8, 3024-7, 64430-1, 3016-3 ####[facility]CLIA [id number] [place] [address] [place] HbA1c (Bld)on 12-01-2024 Average glucose Estimated from glycated hemoglobin (Bld) [Mass/Vol] 126 mg/dL Normal [facility] Comment on above: Order Comment: Johana jarvis Type: BLOOD SPECIMEN [facility] Facility: [facility] Address: [address] [place] [address] Result Comment: eAG: (Estimated average glucose) is a calculated value from HgbA1c and is leather goods sales representative of the average blood glucose level in the last 2-3 month period. Performed By: #### 5 5454-3 #### [facility] CLIA [id number] [address] [place] [address] [place] HbA1c (Bld) [Mass fraction] 6.0 % High 4.3-5.6 [facility] Comment on above: Order Comment: Johana jarvis Type: BLOOD SPECIMEN [facility] Facility: [facility] Address: [address] [place] [address] Result Comment: Amer [place] Diabetes Association guidelines indicate that patients with HgbA1c in the range 5.7-6.4% are at increased risk for development of diabetes, and intervention by lifestyle modification may be beneficial. HgbA1c greater or equal to 6.5% is considered diagnostic of diabetes. Performed By: #### 5 5454-3 #### [facility] CLIA [id number] [address] [place] [address] [place] Lipid 1996 panelon 01-13-202 5 Cholesterol [Mass/Vol] 138 mg/dL Normal <200 [facility] Comment on above: Order Comment: Speci men Type: BLOOD SPECIMENOrdering Facility: [facility] Address: [address] [place] [address] Result Comment: <200 mg/dL, Desirable 200-239 mg/dL, Borderline high >239 mg/dL, High Performed By: #### 2 4323-8, 3024-7, 63018-2, 3016-3 ####[facility]CLIA [id number] [place] [address] [place] Cholesterol in HDL [Mass/Vol] 44 mg/dL Normal >39 [facility] Comment on above: Order Comment: Speci men Type: BLOOD SPECIMENOrdering Facility: [facility] Address: [address] [place] [address] Result Comment: 40-5 9 mg/dL, Acceptable >59 mg/dL, High: Negative risk factor for coronary heart disease <40 mg/dL, Low: Positive risk factor for coronary heart disease Performed By: #### 2 4323-8, 3024-7, 58689-0, 6-3 ####[facility] LABCLIA [id number] [place] [address] [place] Cholesterol in LDL [Mass/Vol] 64 mg/dL Normal <100 [facility] Comment on above: Order Comment: Speci men Type: BLOOD SPECIMENOrdering Facility: [facility] Address: [address] [place] [address] Result Comment: <100 mg/dL, Optimal 100-129 mg/dL, Near optimal/above optimal 130-159 mg/dL, Borderline high 160-189 mg/dL, High >189 mg/dL, Very high Secondary prevention optimal LDL Cholesterol levels are recommended to be < 70 mg/dL Performed By: #### 2 4323-8, 3024-7, 91159-8, 3016-3 ####[facility] LABCLIA [id number] [place] [id number] [place] Cholesterol in LDL/Cholesterol in HDL [Mass ratio] 1.45 {ratio} Normal <2.54 [facility] Comment on above: Order Comment: Elizabethi men Type: BLOOD SPECIMENOrdering Facility: [facility] Address: [address] [place] [address] Result Comment: Vlad oakes: 1. National Cholesterol Education Program ATP III Guideline At-A-Glance Quick Desk Reference: National Heart, Lung, and Blood [place]. National Institutes of Health. 2001: NIH Publication No. 01-3305. 2. An International Atherosclerosis Society position paper: global recommendations for the management of dyslipidemia: executive summary, Atherosclerosis. 2014: 232(2):410-413. Performed By: #### 2 4323-8, 3024-7, 74048-8, 6-3 ####[facility] LABCLIA [id number] [place] [address] [place] Cholesterol in VLDL [Mass/Vol] 30 mg/dL High <30 [facility] Comment on above: Order Comment: Elizabethi matheus Type: BLOOD SPECIMENOrdering Facility: [facility] Address: [address] [place] [address] Performed By: #### 2 4323-8, 3024-7, 12574-2, 6-3 ####[facility]CLIA [id number] [address] [place] Cholesterol non HDL [Mass/Vol] 94 mg/dL Normal <130 [facility] Comment on above: Order Comment: Elizabethi matheus Type: BLOOD SPECIMENOrdering Facility: [facility] Address: [address] [place] [address] Result Comment: <130 mg/dL, Optimal 130-159 mg/dL, Near optimal/above optimal 160-189 mg/dL, Borderline high 190-219 mg/dL, High >219 mg/dL, Very high Secondary prevention optimal non HDL Cholesterol levels are recommended to be <100 mg/dL Performed By: #### 2 4323-8, 3024-7, 31591-6, 3016-3 ####[facility] LABCLIA [id number] [place] [address] [place] Cholesterol.total/Chol esterol in HDL [Mass ratio] 3.14 {ratio} Normal <5.10 [facility] Comment on above: Order Comment: Speci men Type: BLOOD SPECIMENOrdering Facility: [facility] Address: [address] [place] [address] Performed By: #### 2 4323-8, 3024-7, 95269-4, 3016-3 ####[facility] LABCLIA [id number] [place] [address] [place] FASTING TIME 14 hrs Normal [facility] Comment on above: Order Comment: Speci men Type: BLOOD SPECIMENOrdering Facility: [facility] Address: [address] [place] [address] Performed By: #### 2 4323-8, 3024-7, 04483-8, 6-3 ####[facility] LABCLIA [id number] [place] [address] [place] Triglyceride [Mass/Vol] 151 mg/dL High <150 [facility] Comment on above: Order Comment: Speci men Type: BLOOD SPECIMENOrdering Facility: [facility] Address: [address] [place] [address] Result Comment: <150 mg/dL, Normal 150-199 mg/dL, Borderline high 200-499 mg/dL, High >499 mg/dL, Very high Performed By: #### 2 4323-8, 3024-7, 78204-9, 3016-3 ####[facility] LABCLIA [id number] [place] [id number] [place] T4 Free SerPl-mCncon 025 Free T4 [Mass/Vol] 2.0 ng/dL High 0.9-1.7 [facility] Comment on above: Order Comment: Speci men Type: BLOOD SPECIMENOrdering Facility: [facility] Address: [address] [place] [address] Performed By: #### 2 4323-8, 3024-7, 69583-9, 3016-3 ####[facility] LABCLIA [id number] [place] [address] [place] TSH SerPl-aCncon 12-01-2024 TSH Qn 0.005 m[IU]/L Low 0.270-4.200 [facility] Comment on above: Order Comment: Speci men Type: BLOOD SPECIMENOrdering Facility: [facility] Address: [address] [place] [address] Performed By: #### 2 4323-8, 3024-7, 65857-8, 3016-3 ####[facility] LABCLIA [id number] [place] [address] [place] Vit B12 SerPl-mCncon 025 Cobalamin (Vitamin B12) [Mass/Vol] 1268 pg/mL High 232-1245 [facility] Comment on above: Order Comment: Speci men Type: BLOOD SPECIMEN [facility] Address: [address] [place] [address] Performed By: #### 2 132-9 #### [facility] CLIA [id number] [address] [place] [address] [place] CNPNon 09-10-2024 CNPN Telephone (FAMWS) -------- GELY NEWMAN ([id number]) 1950 F Date Time Provider Department 09[facility]10[facility] During your visit today, we recorded the following information about you: Ligia Pantoja RN 09/10/2024 2:59 PM Signed Patient calls [...] out to provider. Requests call back at [phone] with provider response. GORGE Bo Jordan L, DO 09/13/2024 12:25 PM Signed Okay with these considerations by specialist DO Allan Ernst Rilee, MA 09/15/2024 10:30 AM Signed Call to pt and notified her of response below from Provider. Pt verbalized understanding. Silvestre Martinez MA Allergies As of Date: 09/10/2024 Noted Allergy Reaction SULFA (SULFONAMIDE ANTIBIOTICS) 01/13/2013 16 - Unknown Comments: childhood Date Reviewed: 06/04/2024 Reviewed by: Annmarie López LPN - Fully Assessed Reason for Visit: Patient Question [5087] Prescriptions as of 09/15/2024 - gabapentin (NEURONTIN) [...] 1 tablet by mouth once daily. - Txbmgtot-Rzzr-Dlx-Folic Acid 18-0.4 mg tab Take 1 tablet [...] [L72.3, L08.9] 02/26/2019 Coronary artery disease involving [place] heart *05/28/2019 Abnormal urine odor [R82.90] 05/28/2019 [...] other part of lef*06/04/2024 Encounter Status:Closed by SILVESTRE MARTINEZ on 09/15/24 [facility] 08-18-2024 CNPN Telephone (FAMWS) -------- GELY NEWMAN ([id number]) 1950 F Date Time Provider Department 08/18/24 RISHI VASQUEZ [facility] During your visit today, we recorded the following information about you: Silvestre Martinez MA 08/18/2024 8:48 AM Signed Pt wrote into the office via [employer] on 08/16/24 with questions regarding medications. Please review message below and advise. Silvestre Martinez MA Pt message: MANY YEARS AGO, [...] PAIN INJECTION WENT WELL AND HAS HELPED. Stephanie Han PA-C 08/19/2024 1:36 PM Signed Please let patient know that she can take Fish Oil 1000 mg. Stephanie Barron PA-C 08/19/2024 Leatha Long LPN 08/19/2024 2:29 PM Signed Patient notified via voice mail message. Leatha Long LPN Allergies As of Date: 08/18/2024 Noted Allergy Reaction SULFA (SULFONAMIDE ANTIBIOTICS) 01/13/2013 16 - Unknown Comments: childhood Date Reviewed: 06/04/2024 Reviewed by: Annmarie López LPN - Fully Assessed Reason for Visit: Patient Question [7823] Cmt: Fish oil - [place] 3 Prescriptions as of 08/19/2024 - gabapentin [...] 1 tablet by mouth once daily. - Cnhwwdxj-Qblz-Lyv-Folic Acid 18-0.4 mg tab Take 1 tablet [...] [L72.3, L08.9] 02/26/2019 Coronary artery disease involving [place] heart *05/28/2019 Abnormal urine odor [R82.90] 05/28/2019 [...] Encounter Status:Closed by LEATHA LONG on 08/19/24 [facility] CNPNon 08-08-2024 CNPN Telephone (FAMPWS) -------- GELY NEWMAN ([id number]) 1950 F Date Time Provider Department 08/08/24 [facility] During your visit today, we recorded the following information about you: Hina Man RN 08/08/2024 8:25 AM Signed Patient calls [...] review and advise. Messages are fairly similar. Silvestre Martinez MA Pt message: DR. VASQUEZ, DR. [...] Comments: childhood Date Reviewed: 06/04/2024 Reviewed by: Annmarie López LPN - Fully Assessed Reason for [...] 1 tablet by mouth once daily. - Mvvwxnos-Akaq-Gex-Folic Acid 18-0.4 mg tab Take 1 tablet [...] [L72.3, L08.9] 02/26/2019 Coronary artery disease involving [place] heart *05/28/2019 Abnormal urine odor [R82.90] 05/28/2019 Stage 3 chronic kidney disease (HCC) [N18.30] 12/03/2019 Fatigue [R53.83] more content not included)... [facility] Pel[facility] (Routine)on Pelvis (Routine) Normal [facility] Shoulder min 2 Viewson 06-19 Shoulder min 2 Views Normal [facility] CNPNon 06-13-2024 CNPN Telephone (FAMPWS) -------- GELY NEWMAN ([id number]) 1950 F Date Time Provider Department 06/13[facility] During your visit today, we recorded the following information about you: Annmarie López LPN 06/13/2024 11:19 AM Signed Needs referral faxed to [facility] for Pain Management. This has been faxed. Allergies As of Date: 06/13/2024 Noted Allergy Reaction SULFA (SULFONAMIDE ANTIBIOTICS) 01/13/2013 18 - Unknown Comments: childhood Date Reviewed: 06/04/2024 Reviewed by: Annmarie López LPN - Fully Assessed Prescriptions as [...] 1 tablet by mouth once daily. - Txqvjmgh-Qvuv-Lrh-Folic Acid 18-0.4 mg tab Take 1 tablet [...] [L72.3, L08.9] 02/26/2019 Coronary artery disease involving [place] heart *05/28/2019 Abnormal urine odor [R82.90] 05/28/2019 [...] other part of lef*06/04/2024 Encounter Status:Closed by ANNMARIE LÓPEZ LPN on 06/13/24 Normal [facility] CNCOon 06-04-2024 CNCO HNO ID: [id number] Author: COORDINATOR, MAMMOGRAPHY, ? Service: ? Author Type: Physician Type: Letter Filed: 06/04/2024 14:01 Note Text: June 04, 2024 PID: [id number] Gely Newman [address] [place] [address] Dear Ms. Newman, We are pleased to [...] report will be kept on file at [facility] as part of your permanent medical record and are available for your continuing care. Thank you for allowing us to help in meeting your health care needs. Sincerely, Dr. Monteiro Interpreting Radiologist [facility] (Normal over 40) Normal [facility] CNOVon 06-04-2024 CNOV Office Visit (FAMPWS ) -------- GELY NEWMAN ([id number]) 1950 F Date Time Provider Department 06/04/24 9:40 AM [facility] During your visit today, we recorded [...] mellitus (HCC) Coronary artery disease Dr. Ch Implementation Services Analyst, 90% blockage- unable to do stenting Diabetes mellitus type 2 in obese Diabetic feet (HCC) Gangrene (HCC) 2012 RIGHT FOOT Hypertension Mild non proliferative diabetic retinopathy (HCC) 06/11/2013 Both eyes, Dr. Ortiz [facility]-03/25/2020 left mild, right moderate Multiple thyroid nodules last US 01/2015 Peripheral artery disease (HCC) due to Diabetes mellitus, Dr. Kwaku Moscoso Rotator cuff syndrome of left shoulder Dr. Deluna [facility] PAST SURGICAL HISTORY Procedure Laterality Date [...] 04-08-13 ROTATOR CUFF REPAIR 03/11/14 Dr. Deluna [facility] SLCTV CATHJ EA 1ST ORD [...] Allergen React (more content not included)... Normal [facility] 06-04-2024 CNPN Telephone (FAMWS) -------- GELY NEWMAN ([id number]) 1950 F Date Time Provider Department 06/04/24 [facility] During your visit today, we recorded the following information about you: Rishi VasquezDO 06/04/2024 2:36 PM Signed Please inform patient that her mammogram is normal/negative. She will need routine screening mammogram in 1 year. Thanks BOB Enrst Beth, LPN 06/04/2024 2:50 PM Signed Phoned patient left message to return call and ask to speak to a nurse. Keisha Coronado, GORGE 06/04/2024 3:59 PM Signed Spoke with patient. Given message from provider's office. Patient verbalizes understanding. Keisha Coronado RN Allergies As of Date: 06/04/2024 Noted Allergy Reaction SULFA (SULFONAMIDE ANTIBIOTICS) 01/13/2013 18 - Unknown Comments: childhood Date Reviewed: 06/04/2024 Reviewed by: Annmarie López LPN - Fully Assessed Reason for [...] 1 tablet by mouth once daily. - Egggdvyc-Vpcq-Lum-Folic Acid 18-0.4 mg tab Take 1 tablet [...] [L72.3, L08.9] 02/26/2019 Coronary artery disease involving [place] heart *05/28/2019 Abnormal urine odor [R82.90] 05/28/2019 [...] KEISHA CORONADO on 06/04/24 Normal [facility] SCREENING W TOMOon 06-03 ALEJANDRO SCREENING W BEN * * *Final Report* * * DATE OF EXAM: Jun 03 2024 9:42AM WRW [id number] - ALEJANDRO SCREENING W BEN / PROCEDURE REASON: Encounter for screening mammogram for malignant neoplasm of breast * * * * Physician Interpretation * * * * RESULT: #[id number] - ALEJANDRO SCREENING W BEN BILATERAL DIGITAL [...] mammogram, 07/10/2023 mammogram, and 06/05/2022 mammogram - [facility]. There are scattered areas of fibroglandular density. No significant masses, calcifications, or other findings are seen in either breast. There has been no significant interval change. IMPRESSION: NEGATIVE There is no mammographic evidence of malignancy. A 1 year screening mammogram is recommended. Lisette newman/gilson:06/04/2024 14:01:13 Delivery Representative(s[facility]: Normal over 40 Mammogram [...] Health, Family Medicine, and Medical/Surgical Oncology, the [facility] has carefully reviewed the data [...] their providers when to stop screening mammograms. Ballistic Expert: Gilson Transcribe Date/Time: Jun 03 2024 9:23A Dictated by: LISETTE MONTEIRO MD This examination was interpreted and the report reviewed and electronically signed by: LISETTE MONTEIRO MD on Jun 04 2024 2:01PM EST [id number] Normal [facility] 25(OH)D3 [facility] 25-hydroxyvitamin D3 [Mass/Vol] 72.8 ng/mL Normal 31.0-80.0 [facility] Comment on above: Order Comment: Speci men Type: BLOOD SPECIMEN Ordering Facility: [facility] Address: [address] [place] [address] Result Comment: Clas sification of 25 [place] Vitamin D status: Deficiency/Insufficiency: < or = 30 ng/ml. Sufficiency/Optimal Levels: 31-80 ng/mL Toxicity: > 100 ng/mL. Test performed by chemiluminescent immunoassay. Performed By: #### 2 132-9 #### [facility] CLIA [id number] [address] [place] [address] [place] [address] [place] CBC W Auto Differential pane l (Bld)on 05-30-2024 Basophils (Bld) [#/Vol] 0.06 10*3/uL Normal <0.11 [facility] Comment on above: Order Comment: Speci men Type: BLOOD SPECIMEN Ordering Facility: [facility] Address: [address] [place] [address] Performed By: #### 2 132-9 #### [facility] CLIA [id number] [address] [place] [address] [place] Basophils/100 WBC (Bld) 0.8 % Normal [facility] Comment on above: Order Comment: Speci men Type: BLOOD SPECIMEN Ordering Facility: [facility] Address: [address] [place] [address] Performed By: #### 2 132-9 #### [facility] CLIA [id number] [address] [place] [address] [place] Differential cell count method Nom (Bld) Auto Normal [facility] Comment on above: Order Comment: Speci men Type: BLOOD SPECIMEN Ordering Facility: [facility] Address: [address] [place] [address] Performed By: #### 2 132-9 #### [facility] CLIA [id number] [address] [place] [address] [place] Eosinophils (Bld) [#/Vol] 0.26 10*3/uL Normal <0.46 [facility] Comment on above: Order Comment: Speci men Type: BLOOD SPECIMEN Ordering Facility: [facility] Address: [address] [place] [address] Performed By: #### 2 132-9 #### [facility] CLIA [id number] [address] [place] [address] [place] Eosinophils/100 WBC (Bld) 3.4 % Normal [facility] Comment on above: Order Comment: Speci men Type: BLOOD SPECIMEN Ordering Facility: [facility] Address: [address] [place] [address] Performed By: #### 2 132-9 #### [facility] CLIA [id number] [address] [place] [address] [place] Erythrocyte distribution width (RBC) [Ratio] 12.1 % Normal 11.5-15.0 [facility] Comment on above: Order Comment: Speci men Type: BLOOD SPECIMEN Ordering Facility: [facility] Address: [address] [place] [address] Performed By: #### 2 132-9 #### [facility] CLIA [id number] [address] [place] [address] [place] Hematocrit (Bld) [Volume fraction] 38.4 % Normal 36.0-46.0 [facility] Comment on above: Order Comment: Speci men Type: BLOOD SPECIMEN Ordering Facility: [facility] Address: [address] [place] [address] Performed By: #### 2 132-9 #### [facility] CLIA [id number] [address] [place] [address] [place] Hemoglobin (Bld) [Mass/Vol] 12.3 g/dL Normal 11.5-15.5 [facility] Comment on above: Order Comment: Speci men Type: BLOOD SPECIMEN Ordering Facility: [facility] Address: [address] [place] [address] Performed By: #### 2 132-9 #### [facility] CLIA [id number] [address] [place] [address] [place] Immature granulocytes (Bld) [#/Vol] 10*3/uL Normal <0.10 [facility] Comment on above: Order Comment: Speci men Type: BLOOD SPECIMEN Ordering Facility: [facility] Address: [address] [place] [address] Performed By: #### 2 132-9 #### [facility] CLIA [id number] [address] [place] [address] [place] Immature granulocytes/100 WBC (Bld) 0.1 % Normal [facility] Comment on above: Order Comment: Speci men Type: BLOOD SPECIMEN Ordering Facility: [facility] Address: [address] [place] [address] Performed By: #### 2 132-9 #### [facility] CLIA [id number] [address] [place] [address] [place] Lymphocytes (Bld) [#/Vol] 1.71 10*3/uL Normal 1.00-4.00 [facility] Comment on above: Order Comment: Speci men Type: BLOOD SPECIMEN Ordering Facility: [facility] Address: [address] [place] [address] Performed By: #### 2 132-9 #### [facility] CLIA [id number] [address] [place] [address] [place] Lymphocytes/100 WBC (Bld) 22.6 % Normal [facility] Comment on above: Order Comment: Speci men Type: BLOOD SPECIMEN Ordering Facility: [facility] Address: [address] [place] [address] Performed By: #### 2 132-9 #### [facility] CLIA [id number] [address] [place] [address] [place] MCH (RBC) [Entitic mass] 31.1 pg Normal 26.0-34.0 [facility] Comment on above: Order Comment: Speci men Type: BLOOD SPECIMEN Ordering Facility: [facility] Address: [address] [place] [address] Performed By: #### 2 132-9 #### [facility] CLIA [id number] [address] [place] [address] [place] MCHC (RBC) [Mass/Vol] 32.0 g/dL Normal 30.5-36.0 [facility] Comment on above: Order Comment: Speci men Type: BLOOD SPECIMEN Ordering Facility: [facility] Address: [address] [place] [address] Performed By: #### 2 132-9 #### [facility] CLIA [id number] [address] [place] [address] [place] MCV (RBC) [Entitic vol] 97.0 fL Normal 80.0-100.0 [facility] Comment on above: Order Comment: Speci men Type: BLOOD SPECIMEN Ordering Facility: [facility] Address: [address] [place] [address] Performed By: #### 2 132-9 #### [facility] CLIA [id number] [address] [place] [address] [place] Monocytes (Bld) [#/Vol] 0.68 10*3/uL Normal <0.87 [facility] Comment on above: Order Comment: Speci men Type: BLOOD SPECIMEN Ordering Facility: [facility] Address: [address] [place] [address] Performed By: #### 2 132-9 #### [facility] CLIA [id number] [address] [place] [address] [place] Monocytes/100 WBC (Bld) 9.0 % Normal [facility] Comment on above: Order Comment: Speci men Type: BLOOD SPECIMEN Ordering Facility: [facility] Address: [address] [place] [address] Performed By: #### 2 132-9 #### [facility] CLIA [id number] [address] [place] [address] [place] Neutrophils (Bld) [#/Vol] 4.86 10*3/uL Normal 1.45-7.50 [facility] Comment on above: Order Comment: Speci men Type: BLOOD SPECIMEN Ordering Facility: [facility] Address: [address] [place] [address] Performed By: #### 2 132-9 #### [facility] CLIA [id number] [address] [place] [address] [place] Neutrophils/100 WBC (Bld) 64.1 % Normal [facility] Comment on above: Order Comment: Speci men Type: BLOOD SPECIMEN Ordering Facility: [facility] Address: [address] [place] [address] Performed By: #### 2 132-9 #### [facility] CLIA [id number] [address] [place] [address] [place] Nucleated RBC (Bld) [#/Vol] 10*3/uL Normal <0.01 [facility] Comment on above: Order Comment: Speci men Type: BLOOD SPECIMEN Ordering Facility: [facility] Address: [address] [place] [address] Performed By: #### 2 132-9 #### [facility] CLIA [id number] [address] [place] [address] [place] Nucleated RBC/100 WBC (Bld) [Ratio] 0.0 /100 WBC Normal [facility] Comment on above: Order Comment: Speci men Type: BLOOD SPECIMEN Ordering Facility: [facility] Address: [address] [place] [address] Performed By: #### 2 132-9 #### [facility] CLIA [id number] [address] [place] [address] [place] Platelet mean volume (Bld) [Entitic vol] 11.3 fL Normal 9.0-12.7 [facility] Comment on above: Order Comment: Speci men Type: BLOOD SPECIMEN Ordering Facility: [facility] Address: [address] [place] [address] Performed By: #### 2 132-9 #### [facility] CLIA [id number] [address] [place] [address] [place] Platelets (Bld) [#/Vol] 191 10*3/uL Normal 150-400 [facility] Comment on above: Order Comment: Speci men Type: BLOOD SPECIMEN Ordering Facility: [facility] Address: [address] [place] [address] Performed By: #### 2 132-9 #### [facility] CLIA [id number] [address] [place] [address] [place] RBC (Bld) [#/Vol] 3.96 10*6/uL Normal 3.90-5.20 [facility] Comment on above: Order Comment: Speci men Type: BLOOD SPECIMEN Ordering Facility: [facility] Address: [address] [place] [address] Performed By: #### 2 132-9 #### [facility] CLIA [id number] [address] [place] [address] [place] WBC (Bld) [#/Vol] 7.58 10*3/uL Normal 3.70-11.00 [facility] Comment on above: Order Comment: Speci men Type: BLOOD SPECIMEN Ordering Facility: [facility] Address: [address] [place] [address] Performed By: #### 2 132-9 #### [facility] CLIA [id number] [address] [place] [address] [place] Comprehensive metabolic 2000 panelon 05-30-2024 Albumin [Mass/Vol] 4.1 g/dL Normal 3.9-4.9 [facility] Comment on above: Order Comment: Speci men Type: BLOOD SPECIMEN Ordering Facility: [facility] Address: [address] [place] [address] Performed By: #### 2 132-9 #### [facility] CLIA [id number] [address] [place] [address] [place] ALP [Catalytic activity/Vol] 62 U/L Normal 34-123 [facility] Comment on above: Order Comment: Speci men Type: BLOOD SPECIMEN Ordering Facility: [facility] Address: [address] [place] [address] Performed By: #### 2 132-9 #### [facility] CLIA [id number] [address] [place] [id number] [place] ALT [Catalytic activity/Vol] 13 U/L Normal 7-38 [facility] Comment on above: Order Comment: Speci men Type: BLOOD SPECIMEN Ordering Facility: [facility] Address: [address] [place] [address] Performed By: #### 2 132-9 #### [facility] CLIA [id number] [address] [place] [address] [place] Anion gap [Moles/Vol] 12 mmol/L Normal 8-15 [facility] Comment on above: Order Comment: Speci men Type: BLOOD SPECIMEN Ordering Facility: [facility] Address: [address] [place] [address] Performed By: #### 2 132-9 #### [facility] CLIA [id number] [address] [place] [address] [place] AST [Catalytic activity/Vol] 24 U/L Normal 13-35 [facility] Comment on above: Order Comment: Speci men Type: BLOOD SPECIMEN Ordering Facility: [facility] Address: [address] [place] [address] Performed By: #### 2 132-9 #### [facility] CLIA [id number] [address] [place] [address] [place] Bilirubin [Mass/Vol] 0.4 mg/dL Normal 0.2-1.3 [facility] Comment on above: Order Comment: Speci men Type: BLOOD SPECIMEN Ordering Facility: [facility] Address: [address] [place] [address] Performed By: #### 2 132-9 #### [facility] CLIA [id number] [address] [place] [address] [place] Calcium [Mass/Vol] 10.0 mg/dL Normal 8.5-10.2 [facility] Comment on above: Order Comment: Speci men Type: BLOOD SPECIMEN Ordering Facility: [facility] Address: [address] [place] [address] Performed By: #### 2 132-9 #### [facility] CLIA [id number] [address] [place] [address] [place] Chloride [Moles/Vol] 107 mmol/L Normal 98-107 [facility] Comment on above: Order Comment: Speci men Type: BLOOD SPECIMEN Ordering Facility: [facility] Address: [address] [place] [address] Performed By: #### 2 132-9 #### [facility] CLIA [id number] [address] [place] [address] [place] CO2 [Moles/Vol] 23 mmol/L Normal 22-30 [facility] Comment on above: Order Comment: Speci men Type: BLOOD SPECIMEN Ordering Facility: [facility] Address: [address] [place] [address] Performed By: #### 2 132-9 #### [facility] CLIA [id number] [address] [place] [address] [place] Creatinine [Mass/Vol] 1.20 mg/dL High 0.58-0.96 [facility] Comment on above: Order Comment: Speci men Type: BLOOD SPECIMEN Ordering Facility: [facility] Address: [address] [place] [address] Performed By: #### 2 132-9 #### [facility] CLIA [id number] [address] [place] [address] [place] Creatinine and Glomerular filtration rate.predicted panel (S/P/Bld) 48 mL/min/1.73m??? Low >=60 [facility] Comment on above: Order Comment: Speci men Type: BLOOD SPECIMEN Ordering Facility: [facility] Address: [address] [place] [address] Result Comment: Elena mated Glomerular Filtration Rate [...] GFR. Performed By: #### 2 132-9 #### [facility] CLIA [id number] [address] [place] [address] [place] Glucose [Mass/Vol] 113 mg/dL High 74-99 [facility] Comment on above: Order Comment: Speci men Type: BLOOD SPECIMEN Ordering Facility: [facility] Address: [address] [place] [address] Result Comment: The [place] Diabetes Association (ADA) provides guidance for cutoff [...] Standards of Medical Care in Diabetes 2016, [place] Diabetes Association. Diabetes Care. 2016.39(Suppl 1). Performed By: #### 2 132-9 #### [facility] CLIA [id number] [address] [place] [address] [place] Potassium [Moles/Vol] 4.7 mmol/L Normal 3.7-5.1 [facility] Comment on above: Order Comment: Speci men Type: BLOOD SPECIMEN Ordering Facility: [facility] Address: [address] [place] [address] Performed By: #### 2 132-9 #### [facility] CLIA [id number] [address] [place] [address] [place] Protein [Mass/Vol] 6.5 g/dL Normal 6.3-8.0 [facility] Comment on above: Order Comment: Speci men Type: BLOOD SPECIMEN Ordering Facility: [facility] Address: [address] [place] [address] Performed By: #### 2 132-9 #### [facility] CLIA [id number] [address] [place] [address] [place] Sodium [Moles/Vol] 142 mmol/L Normal 136-144 [facility] Comment on above: Order Comment: Speci men Type: BLOOD SPECIMEN Ordering Facility: [facility] Address: [address] [place] [address] Performed By: #### 2 132-9 #### [facility] CLIA [id number] [address] [place] [address] [place] Urea nitrogen [Mass/Vol] 38 mg/dL High 7-21 [facility] Comment on above: Order Comment: Speci men Type: BLOOD SPECIMEN Ordering Facility: [facility] Address: [address] [place] [address] Performed By: #### 2 132-9 #### [facility] CLIA [id number] [address] [place] [address] [place] HbA1c (Bld)on 05-30-2024 Average glucose Estimated from glycated hemoglobin (Bld) [Mass/Vol] 131 mg/dL Normal [facility] Comment on above: Order Comment: Speci men Type: BLOOD SPECIMEN Ordering Facility: [facility] Address: [address] [place] [address] Result Comment: eAG: (Estimated average glucose) is a calculated value from HgbA1c and is leather goods sales representative of the average blood glucose level in the last 2-3 month period. Performed By: #### 2 132-9 #### [facility] CLIA [id number] [address] [place] [address] [place] HbA1c (Bld) [Mass fraction] 6.2 % High 4.3-5.6 [facility] Comment on above: Order Comment: Speci men Type: BLOOD SPECIMEN Ordering Facility: [facility] Address: [address] [place] [address] Result Comment: [place] Diabetes Association guidelines indicate that patients with HgbA1c in the range 5.7-6.4% are at increased risk for development of diabetes, and intervention by lifestyle modification may be beneficial. HgbA1c greater or equal to 6.5% is considered diagnostic of diabetes. Performed By: #### 2 132-9 #### [facility] CLIA [id number] [address] [place] [address] [place] Lipid 1996 panelon 4 Cholesterol [Mass/Vol] 151 mg/dL Normal <200 [facility] Comment on above: Order Comment: Johana jarvis Type: BLOOD SPECIMEN Ordering Facility: [facility] Address: [address] [place] [address] Result Comment: <200 mg/dL, Desirable 200-239 mg/dL, Borderline high >239 mg/dL, High Performed By: #### 2 132-9 #### [facility] CLIA [id number] [address] [place] [address] [place] Cholesterol in HDL [Mass/Vol] 47 mg/dL Normal >39 [facility] Comment on above: Order Comment: Johana jarvis Type: BLOOD SPECIMEN Ordering Facility: [facility] Address: [address] [place] [address] Result Comment: 40-5 9 mg/dL, Acceptable >59 mg/dL, High: Negative risk factor for coronary heart disease <40 mg/dL, Low: Positive risk factor for coronary heart disease Performed By: #### 2 132-9 #### [facility] CLIA [id number] [address] [place] [address] [place] Cholesterol in LDL [Mass/Vol] 71 mg/dL Normal <100 [facility] Comment on above: Order Comment: Johana jarvis Type: BLOOD SPECIMEN Ordering Facility: [facility] Address: [address] [place] [address] Result Comment: <100 mg/dL, Optimal 100-129 mg/dL, Near optimal/above optimal 130-159 mg/dL, Borderline high 160-189 mg/dL, High >189 mg/dL, Very high Secondary prevention optimal LDL Cholesterol levels are recommended to be < 70 mg/dL Performed By: #### 2 132-9 #### [facility] CLIA [id number] [address] [place] [address] [place] Cholesterol in LDL/Cholesterol in HDL [Mass ratio] 1.51 {ratio} Normal <2.54 [facility] Comment on above: Order Comment: Johana jarvis Type: BLOOD SPECIMEN Ordering Facility: [facility] Address: [address] [place] [address] Result Comment: Refe rence: 1. National Cholesterol Education Program ATP III Guideline At-A-Glance Quick Desk Reference: National Heart, Lung, and Blood [place]. National Institutes of Health. 2001: NIH Publication No. 01-3305. 2. An International Atherosclerosis Society position paper: global recommendations for the management of dyslipidemia: executive summary, Atherosclerosis. 2014: 232(2):410-413. Performed By: #### 2 132-9 #### [facility] CLIA [id number] [address] [place] [address] [place] Cholesterol in VLDL [Mass/Vol] 33 mg/dL High <30 [facility] Comment on above: Order Comment: Johana jarvis Type: BLOOD SPECIMEN Ordering Facility: [facility] Address: [address] [place] [address] Performed By: #### 2 132-9 #### [facility] CLIA [id number] [address] [place] [address] [place] Cholesterol non HDL [Mass/Vol] 104 mg/dL Normal <130 [facility] Comment on above: Order Comment: Johana jarvis Type: BLOOD SPECIMEN Ordering Facility: [facility] Address: [address] [place] [address] Result Comment: <130 mg/dL, Optimal 130-159 mg/dL, Near optimal/above optimal 160-189 mg/dL, Borderline high 190-219 mg/dL, High >219 mg/dL, Very high Secondary prevention optimal non HDL Cholesterol levels are recommended to be <100 mg/dL Performed By: #### 2 132-9 #### [facility] CLIA [id number] [address] [place] [address] [place] Cholesterol.total/Chol esterol in HDL [Mass ratio] 3.21 {ratio} Normal <5.10 [facility] Comment on above: Order Comment: Speci men Type: BLOOD SPECIMEN Ordering Facility: [facility] Address: [address] [place] [address] Performed By: #### 2 132-9 #### [facility] CLIA [id number] [address] [place] [address] [place] FASTING TIME 13 hrs Normal [facility] Comment on above: Order Comment: Speci men Type: BLOOD SPECIMEN Ordering Facility: [facility] Address: [address] [place] [address] Performed By: #### 2 132-9 #### [facility] CLIA [id number] [address] [place] [address] [place] Triglyceride [Mass/Vol] 165 mg/dL High <150 [facility] Comment on above: Order Comment: Speci men Type: BLOOD SPECIMEN Ordering Facility: [facility] Address: [address] [place] [address] Result Comment: <150 mg/dL, Normal 150-199 mg/dL, Borderline high 200-499 mg/dL, High >499 mg/dL, Very high Performed By: #### 2 132-9 #### [facility] CLIA [id number] [address] [place] [address] [place] T3Free SerPl-mCncon 05-30-20 24 Free T3 [Mass/Vol] 3.7 pg/mL Normal 2.3-4.1 [facility] Comment on above: Order Comment: Speci men Type: BLOOD SPECIMEN Ordering Facility: [facility] Address: [address] [place] [address] Performed By: #### 2 132-9 #### [facility] CLIA [id number] [address] [place] [address] [place] T4 Free SerPl-mCncon 024 Free T4 [Mass/Vol] 2.0 ng/dL High 0.9-1.7 [facility] Comment on above: Order Comment: Speci men Type: BLOOD SPECIMENOrdering Facility: [facility] Address: [address] [place] [address] Performed By: #### 3 024-7, 85984-8, 3051-0, 61970-4 ####[facility] [id number] [place] [address] [place] TSH SerPl-aCncon 05-30-2024 TSH Qn 0.007 m[IU]/L Low 0.270-4.200 [facility] Comment on above: Order Comment: Speci men Type: BLOOD SPECIMEN Ordering Facility: [facility] Address: [address] [place] [address] Performed By: #### 2 132-9 #### [facility] CLIA [id number] [address] [place] [address] [place] CNPChandrika 05-19-2024 CNPN Telephone (FAMPWS) -------- GELY NEWMAN ([id number]) 1950 F Date Time Provider Department 05/19/24 [facility] During your visit today, we recorded the following information about you: Silvestre Martinez MA 05/19/2024 9:19 AM Signed Pt sent in [employer] message asking for lab orders for her upcoming appt 06/04/24. She would like these ordered so she can schedule lab appt. Please notify her once these have been ordered. Labs pended, please review and file. ALFONSO Nicole Alyson, APRN.MARK 05/19/2024 11:31 AM Signed Labs are signed as pended. Please make sure she knows these are to be fasting. Thank you, Clary Andres APRN.MARK GambinoJoanie jesusANGELO 05/19/2024 12:29 PM Signed Pt was notified of such. Allergies As of Date: 05/19/2024 Noted Allergy Reaction SULFA (SULFONAMIDE ANTIBIOTICS) 01/13/2013 16 - Unknown Comments: childhood Date Reviewed: 06/04/2023 Reviewed by: Annmarie López LPN - Fully Assessed Reason for [...] [R53.83] Order(s):LIPID PANEL BASIC [SQLIPB] Order #: [id number] FUTURE COMPREHENSIVE METABOLIC PANEL [SQCMP] Order #: [id number] FUTURE THYROID STIMULATING HORMONE [SQTSH] Order #: [id number] FUTURE T3, FREE [SQFREET3] Order #: [id number] FUTURE T4 FREE/FREE THYROXINE [SQFT4] Order #: [id number] FUTURE VITAMIN D 25 HYDROXY [SQVITD] Order #: [id number] FUTURE COMPLETE BLOOD COUNT AND DIFFERENTIAL [SQCBCDIF] Order #: [id number] FUTURE HEMOGLOBIN A1C [EMKXK5N] Order #: [id number] FUTURE Prescriptions as of 05/19/2024 - glimepiride [...] 1 tablet by mouth once daily. - Zeuldgzr-Krbv-Crx-Folic Acid 18-0.4 mg tab Take 1 tablet [...] Anemia [D (more content not included)... Normal [facility] XR Lumbar spine 3 Viewson [...] calcifications. Mild levoscoliosis DIVISION OF RADIOLOGY Provider, [facility] - 12/10/2023 * * *Final [...] DESCRIBED. PROGRESSION PRIOR STUDY. NO ACUTE ABNORMALITY Ballistic Expert: SANDRA Transcribe Date/Time: Dec 10 2023 1:03P Dictated by : CHASE SUE MD This examination was interpreted and the report reviewed and electronically signed by: CHASE SUE MD on Dec 10 2023 1:17PM EST [facility] Radiology Study observation (narrative) [facility] XR Lumbar spine 3 ViewsOrder ed By: Ccf Provider on 12-10-2023 [facility] Anaerobic cultureOrdered By: Rishi Vasquez on 08-16-2023 Bacteria identified Anaer cx Nom (Unsp spec) No anaerobic bacteria isolated. [facility] Bacteria identified Cx Nom ( Wound)Ordered By: Rishi Vasquez on 08-16-2023 Wound Culture Meth. resistant Stap h. aureus [facility] Gram stain for investigation of transfusion reactionOrdered By: Rishi Vasquez on 08-16-2023 Microscopic observation Gram stain Nom (Unsp spec) [facility] Anaerobic cultureOrdered By: Risih Vasquez on 07-27-2023 Bacteria identified Anaer cx Nom (Unsp spec) No anaerobic bacteria isolated. [facility] Bacteria identified Cx Nom ( Wound)Ordered By: Rishi Vasquez on 07-27-2023 Wound Culture Meth. resistant Stap h. aureus [facility] Gram stain for investigation of transfusion reactionOrdered By: Rishi Vasquez on 07-27-2023 Microscopic observation Gram stain Nom (Unsp spec) [facility] Anaerobic cultureOrdered By: Rishi Vasquez on 07-26-2023 Bacteria identified Anaer cx Nom (Unsp spec) No anaerobic bacteria isolated. [facility] Bacteria identified Cx Nom ( Wound)Ordered By: Rishi Vasquez on 07-26-2023 Wound Culture Meth. resistant Stap h. aureus [facility] Gram stain for investigation of transfusion reactionOrdered By: Rishi Vasquez on 07-26-2023 Microscopic observation Gram stain Nom (Unsp spec) [facility] ALEJANDRO YOANAG W BEN RIGHTon 06-20 [facility] US BREAST LTD RIGHTon 2022 [facility] DIP, URINE (POC)on 2022 BILIRUBIN UA (POCT) Negative Negative [facility] CLARITY UA (POCT) Clear [facility] COLOR UA (POCT) Yellow [facility] GLUCOSE UA (POCT) Negative Negative mg/dL [facility] HEMOGLOBIN/BLOOD UA (POCT) Trace-intact Abnormal Negative [facility] KETONE UA (POCT) Negative Negative mg/dL [facility] LEUKOCYTES UA (POCT) Large [facility]normal [facility] NITRITE UA (POCT) Positive Abnormal Negative [facility] PH UA (POCT) 7.0 4.5 - 8.0 [facility] Protein Ql (U) 30 mg/dL Abnormal Negative mg/dL [facility] SPECIFIC GRAVITY UA (POCT) 1.015 1.005 - 1.030 [facility] UROBILINOGEN UA (POCT) 0.2 E.U./dL Jacki l E.U./dL [facility] ALEJANDRO SCREENINGon 05-29-2023 [facility] No Panel Informationon 12-29 [facility] US THYROID/PARATHYROIDon [facility] UA DIP, URINE (POC)on 2021 BILIRUBIN UA (POCT) Negative Negative [facility] CLARITY UA (POCT) Cloudy [facility] COLOR UA (POCT) Yellow [facility] GLUCOSE UA (POCT) 100 mg/dL Abnormal Negative mg/dL [facility] HEMOGLOBIN/BLOOD UA (POCT) Small Abnormal Negative [facility] KETONE UA (POCT) Negative Negative mg/dL [facility] LEUKOCYTES UA (POCT) Moderate Abnormal Negative [facility] NITRITE UA (POCT) Negative Negative [facility] PH UA (POCT) 7.0 4.5 - 8.0 [facility] Protein Ql (U) 100 mg/dL Abnormal Negative mg/dL [facility] SPECIFIC GRAVITY UA (POCT) 1.020 1.005 - 1.030 [facility] UROBILINOGEN UA (POCT) 0.2 E.U./dL Jacki l E.U./dL [facility] No Panel Informationon 08-15 Radiology Study observation (narrative) [facility] XR Sternum Lateral and right anterior obliqueon 08-15-2022 IMPRESSION: No acute osseous abnormality Ballistic Expert: PSCB Transcribe Date/Time: Aug 15 2022 1:22P Dictated by : MAURICIO REYNOLDS MD This examination was interpreted and the report reviewed and electronically signed by: MAURICIO REYNOLDS MD on Aug 15 2022 1:23PM [facility] DIVISION OF RADIOLOGY * * *Final [...] destructive osseous lesion. DIVISION OF RADIOLOGY Provider, [facility] - 08/15/2022 * * *Final Report* * [...] lesion. IMPRESSION IMPRESSION: No acute osseous abnormality Ballistic Expert: PSC Transcribe Date/Time: Aug 15 2022 1:22P Dictated by : MAURICIO REYNOLDS MD This examination was interpreted and the report reviewed and electronically signed by: MAURICIO REYNOLDS MD on Aug 15 2022 1:23PM EST [facility] XR Sternum Lateral and right anterior obliqueOrdered By: Ccf Provider on 08-15-2022 [facility] XR Wrist - right 4 Viewson 0 08-15-2022 IMPRESSION: No acute fracture. Degenerative disease of the right wrist. Ballistic Expert: SANDRA Transcribe Date/Time: Aug 15 2022 1:20P Dictated by : MAURICIO REYNOLDS MD This examination was interpreted and the report reviewed and electronically signed by: MAURICIO REYNOLDS MD on Aug 15 2022 1:21PM [facility] DIVISION OF RADIOLOGY * * *Final [...] calcifications are noted. DIVISION OF RADIOLOGY Provider, [facility] - 08/15/2022 * * *Final [...] fracture. Degenerative disease of the right wrist. Ballistic Expert: SANDRA Transcribe Date/Time: Aug 15 2022 1:20P Dictated by : MAURICIO REYNOLDS MD This examination was interpreted and the report reviewed and electronically signed by: MAURICIO REYNOLDS MD on Aug 15 2022 1:21PM EST [facility] XR SHOULDER GENERAL 3V OR MO RE AP/TRUE AP/OTHER RIGHTon 06-17-2022 [facility] XR Shoulder - right 3 Viewso n 06-17-2022 IMPRESSION: 1. No acute fracture or dislocation. 2. Radiographic changes which can be seen in association with rotator cuff tendonopathy. Ballistic Expert: PSCB Transcribe Date/Time: Jun 17 2022 9:43A Dictated by : JA GOMEZ MD This examination was interpreted and the report reviewed and electronically signed by: JA GOMEZ MD on Jun 17 2022 9:45AM [...] relevant examinations available for comparison within the [facility] Imaging Archives. RESULT: 3 views [...] is clear. [id number] SE_DIVISION OF RADIOLOGY Provider, [facility] - 06/17/2022 * * *Final [...] relevant examinations available for comparison within the [facility] Imaging Archives. RESULT: 3 views [...] seen in association with rotator cuff tendonopathy. Ballistic Expert: PSCB Transcribe Date/Time: Jun 17 2022 9:43A Dictated by : JA GOMEZ MD This examination was interpreted and the report reviewed and electronically signed by: JA GOMEZ MD on Jun 17 2022 9:45AM EST [facility] Radiology Study observation (narrative) [facility] XR Shoulder - right 3 ViewsO rdered By: Ccf Provider on 06-17-2022 [facility] ALEJANDRO SCREENINGon 06-05-2022 [facility] HEMOGLOBIN A1C (POC)on 05-31 HbA1c (Bld) [Mass fraction] 6.2 % 4.2 - 5.6 % [facility] Renal function 2000 panelon 03-07-2022 Albumin [Mass/Vol] 4.1 g/dL 3.9 - 4.9 g/dL [facility] Anion gap [Moles/Vol] 14 mmol/L 9 - 18 mmol/L [facility] Calcium [Mass/Vol] 9.9 mg/dL 8.5 - 10. 2 mg/dL [facility] Chloride [Moles/Vol] 105 mmol/L 97 - 10 5 mmol/L [facility] CO2 [Moles/Vol] 23 mmol/L 22 - 30 mmol/L [facility] Creatinine [Mass/Vol] 1.29 mg/dL High 0.58 - 0.96 mg/dL [facility] Estimated Glomerular Filtration Rate 45 mL/min/1.73m Low >=60 mL/min/1.73 m [facility] Glucose [Mass/Vol] 167 mg/dL High 74 - 99 mg/dL [facility] Phosphate [Mass/Vol] 4.0 mg/dL 2.7 - 4 .8 mg/dL [facility] Potassium [Moles/Vol] 4.1 mmol/L 3.7 - 5.1 mmol/L [facility] Sodium [Moles/Vol] 142 mmol/L 136 - 144 mmol/L [facility] Urea nitrogen [Mass/Vol] 42 mg/dL High 7 - 21 mg/dL [facility] Glucose Glucometer (BldC) [M ass/Vol]on 01-20-2022 Glucose [Mass/Vol] 163 mg/dL 74-106 [facility] Work Phone: Comment on above: MANAGEMENT OF PATIEN T CARE PER NURSING PROTOCOL Office Visit: Thyroid Nodule son 08-30-2017 Dietary management education, guidance, and counseling (procedure) yes Invalid Interpretation Code [facility] Work Phone: Documentation of current medications (procedure) Done Invalid Interpretation Code [facility] Work Phone: Fall risk assessment No Invalid Interpretation Code [facility] Work Phone: Tobacco smoking status NHIS Never Invalid Interpretation Code [facility] Work Phone: Tobacco use HS Former smoker Invalid Interpretation Code [facility] Work Phone: Office Visiton 06-11-2017 Dietary management education, guidance, and counseling (procedure) yes Invalid Interpretation Code [facility] Work Phone: [phone] Documentation of current medications (procedure) Done Invalid Interpretation Code [facility] Work Phone: [phone] Protein mass conc Done [facility] Work Phone: [phone] Clinical Lists Update: Prelo acid extractor 05-30-2017 Left ventricular Ejection fraction 60 % Invalid Interpretation Code [facility] Work Phone: 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 phalanxon 05-02-2017 Dietary management education, guidance, and counseling (procedure) yes Invalid Interpretation Code [facility] Work Phone: [phone] Documentation of current medications (procedure) Done Invalid Interpretation Code [facility] Work Phone: [phone] Fall risk assessment No Invalid Interpretation Code [facility] Work Phone: Protein mass conc Done [facility] Work Phone: Tobacco smoking status ORIS Never Invalid Interpretation Code [facility] Work Phone: Tobacco smoking status ORIS Former smoker [facility] Work Phone: Tobacco use [facility] Former smoker Invalid Interpretation Code [facility] Work Phone: Office Visiton 04-23-2017 Protein mass conc Done [facility] Work Phone: Lab Report: CRPon 02-21-2017 CRP [Mass/Vol] mg/L Invalid Interpretation Code 0.0-3.0 [facility] Work Phone: Lab Report: Erythrocyte [...] [Mass/Vol] 1.35 ng/dL Invalid Interpretation Code 0.76-1.46 [facility] Work Phone: Lab Report: Thyroid Stim Hor oh (TSH)on 02-07-2017 TSH Qn < 0.01 uIU/mL Low 0.358-3.74 [facility] Work Phone: Office Visit: Thyroid enaa yoshibetsy 02-06-2017 Adolescent depression screening assessment Adolescent depression screening assessment Invalid Interpretation Code [facility] Work Phone: [phone] Adult depression screening assessment Adolescent depression screening assessment Invalid Interpretation Code [facility] Work Phone: Fall risk assessment No [facility] Work Phone: Tobacco smoking status NHIS Never [facility] Work Phone: Tobacco smoking status NHIS Former smoker [facility] Work Phone: Microbiology: Culture, Wound on 01-28-2017 CUW Trimethoprim/Sulfame tho $ <=20 S Invalid Interpretation Code [facility] Work Phone: wound culture Trimethoprim/Sulfame tho $ <=20 S Invalid Interpretation Code [facility] Work Phone: [phone] Clinical Lists Update: Prelo acid extractor 01-15-2017 Cholesterol 164 mg/dL Invalid Interpretation Code [facility] Work Phone: [phone] Cholesterol to HDL Ratio 2.98 {ratio} Invalid Interpretation Code [facility] Work Phone: [phone] Cholesterol 55 mg/dL Low [facility] Work Phone: [phone] LDL Cholesterol 67 mg/dL Invalid Interpretation Code [facility] Work Phone: [phone] LDL/HDL ratio, serum 1.22 Invalid Interpretation Code [facility] Work Phone: [phone] Triglyceride 210 mg/dL High [facility] Work Phone: [phone] very low density lipoproteins 42 mg/dL High [facility] Work Phone: [phone] Lab Report: Basic Metabolic Profile (BMP)on 01-12-2017 Anion gap 8 mmol/L Invalid Interpretation Code 5-15 [facility] Work Phone: [phone] Anion gap [Moles/Vol] 8 mmol/L 5-15 [facility] Work Phone: Calcium [Mass/Vol] 9.0 mg/dL Invalid Interpretation Code 8.5-10.1 [facility] Work Phone: [phone] Chloride [Moles/Vol] 105 mmol/L Invalid Interpretation Code 98-107 [facility] Work Phone: CO2 26.0 mmol/L Invalid Interpretation Code 21.0-32.0 [facility] Work Phone: [phone] CO2 (BldV) [Partial pressure] 26.0 mmol/L 21.0-32.0 [facility] Work Phone: Creatinine [Mass/Vol] 1.63 mg/dL High 0.55-1.02 [facility] Work Phone: [phone] eGFR (non-black) 41 mL/min/{1.73_m2} Low >60 [facility] Work Phone: [phone] EST GFR - AA 41 mL/min Low >60 [facility] Work Phone: [phone] GFR/1.73 sq M predicted among non-blacks MDRD (S/P/Bld) [Vol rate/Area] 34 mL/min/{1.73_m2} Low >60 [facility] Work Phone: Glucose 210 mg/dL High 70-110 [facility] Work Phone: [phone] Glucose [Mass/Vol] 210 mg/dL High 70-110 [facility] Work Phone: [phone] Potassium [Moles/Vol] 4.6 mmol/L Invalid Interpretation Code 3.5-5.1 [facility] Work Phone: Sodium [Moles/Vol] 139 mmol/L Invalid Interpretation Code 136-145 [facility] Work Phone: Urea nitrogen [Mass/Vol] 53 mg/dL High 7-18 [facility] Work Phone: Urea nitrogen/Creatinine [Mass ratio] 32.5 RATIO High 10-20 [facility] Work Phone: [phone] Replaced Document: (P) CBC W /Diff, Automatedon 01-12-2017 Absolute Neut 3.7 X10 3/UL Invalid Interpretation Code 2.0-7.7 [facility] Work Phone: Basophils/100 leukocytes 1.2 % High 0-1 [facility] Work Phone: Basophils/100 WBC (Bld) 1.2 % High 0-1 [facility] Work Phone: Eosinophils/100 leukocytes 8.4 % High 0-5 [facility] Work Phone: Eosinophils/100 WBC (Bld) 8.4 % High 0-5 [facility] Work Phone: Erythrocyte distribution width (RBC) [Ratio] 44.7 fL High 35.1-43.9 [facility] Work Phone: Erythrocyte distribution width (RBC) [Ratio] 13.9 % 11.6-14.6 [facility] Work Phone: Erythrocytes (RBC) 4.04 10*6/uL Low 4.2-5.[address] [facility] Work Phone: [phone] Hematocrit (Bld) [Volume fraction] 36.0 % Low 37-47 [facility] Work Phone: Hematocrit (HCT) 36.0 % Low 37-47 [facility] Work Phone: [phone] Hemoglobin (Bld) [Mass/Vol] 11.6 g/dL Low 12.0-15.0 [facility] Work Phone: Immature granulocytes (Bld) [#/Vol] 0.200 % 0.0-0.9 [facility] Work Phone: immature granulocytes, percentage of total cells, blood 0.200 % Invalid Interpretation Code 0.0-0.9 [facility] Work Phone: Immature granulocytes/100 WBC (Bld) 0.200 % Invalid Interpretation Code 0.0-0.9 [facility] Work Phone: Lymphocytes 1.53 X10 3/UL Invalid Interpretation Code 0.83-4.51 [facility] Work Phone: [phone] Lymphocytes (Bld) [#/Vol] 1.53 X10 3/UL 0.83-4.51 [facility] Work Phone: Lymphocytes/100 leukocytes 23.3 % Invalid Interpretation Code 19-41 [facility] Work Phone: [phone] Lymphocytes/100 WBC (Bld) 23.3 % 19-41 [facility] Work Phone: MCH 28.7 pg Invalid Interpretation Code 27.0-32.0 [facility] Work Phone: [phone] MCH (RBC) [Entitic mass] 28.7 pg 27.0-32.0 [facility] Work Phone: [phone] MCHC 32.2 G/GL Invalid Interpretation Code 32-36 [facility] Work Phone: [phone] MCHC (RBC) [Mass/Vol] 32.2 G/GL 32-36 [facility] Work Phone: MCV 89.1 fL Invalid Interpretation Code 81-99 [facility] Work Phone: [phone] MCV (RBC) [Entitic vol] 89.1 fL 81-99 [facility] Work Phone: Monocytes/100 leukocytes 10.5 % High 0-10 [facility] Work Phone: [phone] Monocytes/100 WBC (Bld) 10.5 % High 0-10 [facility] Work Phone: neutrophil count, blood 3.7 X10 3/UL Invalid Interpretation Code 2.0-7.7 [facility] Work Phone: [phone] Neutrophils (Bld) [#/Vol] 3.7 X10 3/UL 2.0-7.7 [facility] Work Phone: [phone] Neutrophils/100 leukocytes 56.4 % Invalid Interpretation Code 47-70 [facility] Work Phone: [phone] Neutrophils/100 WBC (Bld) 56.4 % 47-70 [facility] Work Phone: Platelet mean volume (Bld) [Entitic vol] 10.4 fL 6.2-12.0 [facility] Work Phone: Platelets 239 10*3/mm3 Invalid Interpretation Code 150-450 [facility] Work Phone: [phone] Platelets (Bld) [#/Vol] 239 10*3/mm3 150-450 [facility] Work Phone: PMV by Stevo 10.4 fL Invalid Interpretation Code 6.2-12.0 [facility] Work Phone: [phone] RBC (Bld) [#/Vol] 4.04 10*6/uL Low 4.2-5.4 [facility] Work Phone: RDW SD 44.7 fL High 35.1-43.9 [facility] Work Phone: RDW-CA 13.9 % Invalid Interpretation Code 11.6-14.6 [facility] Work Phone: [phone] red blood cell distribution width, size density 44.7 fL High 35.1-43.9 [facility] Work Phone: [phone] WBC (Bld) [#/Vol] 6.6 10*3/uL 4.4-11.0 [facility] Work Phone: [phone] WBC (Leukocytes) 6.6 10*3/uL Invalid Interpretation Code 4.4-11.0 [facility] Work Phone: [phone] Lab Report: MRSA Wound DNA b y PCRon 01-04-2017 GE use only - for [employer] import when terms are not otherwise specified Positive High Negative [facility] Work Phone: [phone] INR Coag (Bld) [Relative time] Positive High Negative [facility] Work Phone: SA RESULT Positive High Negative [facility] Work Phone: Office Visit: Thyroid evalua yoshionon 12-20-2016 Colonoscopy (procedure) Colonoscopy (procedure) Invalid Interpretation Code [facility] Work Phone: [phone] Protein mass conc Colonoscopy (procedure) [facility] Work Phone: Lab Report: CBC W/Diff, Auto matedon 12-13-2016 Anisocytosis presence RARE Invalid Interpretation Code [facility] Work Phone: [phone] Anisocytosis Ql (Bld) RARE [facility] Work Phone: complete blood count (CBC), comments . Invalid Interpretation Code [facility] Work Phone: [phone] Pathologist Cyto stain Nom (Cvx/Vag) [ID] May foll Invalid Interpretation Code [facility] Work Phone: Platelets LM Ql (Bld) ADEQUATE Invalid Interpretation Code ADEQ [facility] Work Phone: SMEAR COMMENT . Invalid Interpretation Code [facility] Work Phone: Lab Report: IgG Subclasseson 12-02-2016 IgG subclass 1 (S) [Mass/Vol] 392 mg/dL Low 422-1292 [facility] Work Phone: IgG subclass 2 (S) [Mass/Vol] 216 mg/dL Invalid Interpretation Code 117-747 [facility] Work Phone: IgG subclass 3 (S) [Mass/Vol] 42 mg/dL Invalid Interpretation Code 41-129 [facility] Work Phone: IgG subclass 4 (S) [Mass/Vol] 9 mg/dL Invalid Interpretation Code 1-291 [facility] Work Phone: Office Visit: day 7 of Cefta raline (mrsa, enterobacter, actinomyces)on 11-22-2016 Adult depression screening assessment Adult depression screening assessment Invalid Interpretation Code [facility] Work Phone: PHQ-9 quick depression assessment panel [Reported.PHQ] Adult depression screening assessment [facility] Work Phone: Lab Report: GEGE + Protein El ect, Serumon 11-21-2016 Albumin [Mass/Vol] 2.5 g/dL Low 2.9-4.4 [facility] Work Phone: Albumin/Globulin [Mass ratio] 0.9 {ratio} Invalid Interpretation Code 0.7-1.7 [facility] Work Phone: Alpha 2 globulin Elph [Mass/Vol] 1.1 g/dL High 0.4-1.0 [employer] [facility] Work Phone: [id number] 0.3 g/dL Invalid Interpretation Code 0.0-0.4 [employer] [facility] Work Phone: BETA GLOBULIN 0.9 g/dL Invalid Interpretation Code 0.7-1.3 [employer] [facility] Work Phone: Gamma globulin Elph [Mass/Vol] 600 mg/dL Invalid Interpretation Code Units converted. See lab report for original value. [employer] [facility] Work Phone: Globulin 2.9 g/dL Invalid Interpretation Code 2.2-3.9 [facility] Work Phone: [phone] Globulin 0.9 g/dL Invalid Interpretation Code 0.7-1.3 [facility] Work Phone: [phone] Globulin 0.3 g/dL Invalid Interpretation Code 0.0-0.4 [facility] Work Phone: [phone] Globulin (S) [Mass/Vol] 2.9 g/dL 2.2-3.9 [facility] Work Phone: GEGE RESULT,S Comment Invalid Interpretation Code . [employer] [facility] Work Phone: IgA [Mass/Vol] 249 mg/dL Invalid Interpretation Code 87-352 [employer] [facility] Work Phone: IgG [Mass/Vol] 584 mg/dL Low 700-1600 [employer] [facility] [facility] Work Phone: IgM [Mass/Vol] 40 mg/dL Invalid Interpretation Code 26-217 [employer] [facility] Work Phone: lab comments Comment Invalid Interpretation Code . [facility] Work Phone: [phone] M-SPIKE . g/dL Invalid Interpretation Code [employer] [facility] Work Phone: MONOCLONAL PROTEIN . g/dL Invalid Interpretation Code [facility] Work Phone: [phone] NOTE: Comment Invalid Interpretation Code . [facility] Work Phone: Protein [Mass/Vol] 5.4 g/dL Low 6.0-8.5 [facility] Work Phone: [phone] Protein mass conc Comment . [facility] Work Phone: [phone] serum protein electrophoresis, interpretation/comment Comment Invalid Interpretation Code . [facility] Work Phone: [phone] Lab Report: Bedside Glucoseo n 11-18-2016 Glucose 352 mg/dL High 70-110 [facility] Work Phone: [phone] Glucose [Mass/Vol] 352 mg/dL High 70-110 [facility] Work Phone: [phone] Microbiology: Fungus Stainon 11-18-2016 fungus stain . Invalid Interpretation Code [facility] Work Phone: [phone] . Invalid Interpretation Code [facility] Work Phone: Lab Report: Basic Metabolic Profile (BMP)on 11-17-2016 Creatinine 45.87 mL/min Invalid Interpretation Code [facility] Work Phone: [phone] Lab Report: Iron+Iron Bindin g Capacityon 11-17-2016 Iron [Mass/Vol] 32 ug/dL Low 50-170 [facility] Work Phone: Iron binding capacity [Mass/Vol] 223 ug/dL Low 250-450 [facility] Work Phone: Iron saturation [Mass fraction] 14.3 % Low 15.0-55.0 [facility] Work Phone: Lab Report: Hemoglobin A1con 11-16-2016 HbA1c (Bld) [Mass fraction] 5.3 % Invalid Interpretation Code 4.2-6.3 [facility] Work Phone: Lab Report: Comprehensive Me tabolic Profilon 11-14-2016 Albumin [Mass/Vol] 2.9 g/dL Low 3.4-5.0 [facility] Work Phone: Alkaline phosphatase (ALP) 56 U/L Invalid Interpretation Code 45-117 [facility] Work Phone: [phone] ALP (Bld) [Catalytic activity/Vol] 56 U/L 45-117 [facility] Work Phone: ALT [Catalytic activity/Vol] 14 U/L Invalid Interpretation Code 12-78 [facility] Work Phone: AST [Catalytic activity/Vol] 13 U/L Low 15-37 [facility] Work Phone: Bilirubin [Mass/Vol] 0.20 mg/dL Invalid Interpretation Code 0.20-1.00 [facility] Work Phone: Protein [Mass/Vol] 6.9 g/dL Invalid Interpretation Code 6.4-8.2 [facility] Work Phone: Lab Report: Prealbuminon Prealbumin 12.9 mg/dL Low 20.0-40.0 [facility] Work Phone: Prealbumin Elph [Mass/Vol] 12.9 mg/dL Low 20.0-40.0 [facility] Work Phone: Lab Report: Vancomycin, Trou gh Levelon 10-09-2016 Vancomycin trough [Mass/Vol] 18.7 ug/mL High 5.0-15.0 [facility] Work Phone: Lab Report: Magnesiumon 08-19 Magnesium [Mass/Vol] 2.3 mg/dL Invalid Interpretation Code 1.8-2.4 [facility] Work Phone: Lab Report: Phosphoruson PHOS 3.8 mg/dL Invalid Interpretation Code 2.5-4.9 [facility] Work Phone: Phosphate [Mass/Vol] 3.8 mg/dL 2.5-4.[address] [facility] Work Phone: Phosphorus Concentratation-Random 3.8 mg/dL Invalid Interpretation Code 2.5-4.9 [facility] Work Phone: Lab Report: Liver Profileon 09-01-2016 Bilirubin.direct [Mass/Vol] 0.08 mg/dL Invalid Interpretation Code 0.00-0.30 [facility] Work Phone: Lab Report: Partial Thrombop last Timeon 09-01-2016 aPTT Coag (Bld) [Time] 46.2 s High 24.1-36.2 [facility] Work Phone: Lab Report: Prothrombin Time w/INRon 09-01-2016 INR Coag (PPP) [Relative time] 1.2 {INR} Invalid Interpretation Code [facility] Work Phone: INR in blood by coagulation 1.2 {INR} Invalid Interpretation Code [facility] Work Phone: [phone] PT Coag (PPP) [Time] 14.8 s Invalid Interpretation Code 11.7-14.9 [facility] Work Phone: Office Visit: Thyroid evalua tionon 04-19-2016 MG Breast screening Normal Bilateral Invalid Interpretation Code [facility] Work Phone: Clinical Lists Update: Prelo acid extractor 06-23-2015 PT Coag (PPP) [Time] 9.1 s Invalid Interpretation Code [facility] Work Phone: Office Visiton 05-25-2015 Protein mass conc yes [facility] Work Phone: Smoking cessation education (procedure) yes Invalid Interpretation Code [facility] Work Phone: [phone] Replaced Document: Kikidulce E CG Observationson 05-25-2015 EKG QRS axis -36 deg Invalid Interpretation Code [facility] Work Phone: electrocardiogram interpretation Sinus Bradycardia -Left axis. ABNORMAL Invalid Interpretation Code [facility] Work Phone: [phone] Interpretation Sinus Bradycardia -L eft axis. ABNORMAL Invalid Interpretation Code [facility] Work Phone: P [place] 39 deg Invalid Interpretation Code [facility] Work Phone: P wave axis, electrocardiogram 39 deg Invalid Interpretation Code [facility] Work Phone: [phone] IA Interval 154 ms Invalid Interpretation Code [facility] Work Phone: IA interval, electrocardiogram 154 ms Invalid Interpretation Code [facility] Work Phone: [phone] Pulse (Heart Rate) 55 /min Invalid Interpretation Code [facility] Work Phone: [phone] QRS axis, electrocardiogram -36 deg Invalid Interpretation Code [facility] Work Phone: [phone] QRS Duration 104 ms Invalid Interpretation Code [facility] Work Phone: [phone] QRS duration, electrocardiogram 104 ms Invalid Interpretation Code [facility] Work Phone: [phone] QT Interval new path ms Invalid Interpretation Code [facility] Work Phone: [phone] QT interval, electrocardiogram new path ms Invalid Interpretation Code [facility] Work Phone: [phone] T [place] 31 deg Invalid Interpretation Code [facility] Work Phone: [phone] T wave axis, electrocardiogram 31 deg Invalid Interpretation Code [facility] Work Phone: [phone] Office Visiton 02-22-2015 Cholesterol [Mass/Vol] 164 mg/dL [facility] Work Phone: [phone] Cholesterol in HDL [Mass/Vol] 57 mg/dL [facility] Work [phone] Cholesterol in LDL [Mass/Vol] 76 mg/dL [facility] Work Phone: [phone] Triglyceride [Mass/Vol] 155 mg/dL [facility] Work Phone: [phone] Clinical Lists Update: Prelo acid extractor 02-09-2015 Free T4 index Calc [Mass/Vol] 10.2 Invalid Interpretation Code [facility] Work Phone: T4 [Mass/Vol] 9.9 ug/dL Invalid Interpretation Code [facility] Work Phone: [phone] Throyxin (T4) Free 10.2 ng/dL Invalid Interpretation Code [facility] Work Phone: Office Visiton 12-29-2014 cardiac risk group C Invalid Interpretation Code [facility] Work Phone: [phone] General cardiovascular disease 10Y risk [#] [place]Jarad'Agostadam N/A Invalid Interpretation Code [facility] Work Phone: Clinical Lists Update: Prelo acid extractor 11-18-2014 Cholesterol in LDL/Cholesterol in HDL [Mass ratio] 2.06 [facility] Work Phone: Cholesterol.total/Chol esterol in HDL [Mass ratio] 3.56 {ratio} [facility] Work Phone: Lipoprotein.pre-beta [Mass/Vol] 32 mg/dL [facility] Work Phone: Replaced Document: Nona CHAN Observationson 01-12-2014 Pulse (Heart Rate) 406 ms Invalid Interpretation Code [facility] Work Phone: [phone] 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 Rishi Vasquez DO Work Phone: [facility] 05-21-2025 11:23-0400 Diastolic blood pressure 47 mm[Hg] Dr. Rishi Vasquez DO Work Phone: [facility] 05-21-2025 11:23-0400 Heart rate 57 /min Dr. Rishi Vasquez DO Work Phone: [facility] 05-21-2025 11:23-0400 Respiratory rate 16 /min Dr. Rishi Vasquez DO Work Phone: [facility] 05-21-2025 11:23-0400 SaO2% (BldA) [Mass fraction] 96 % Dr. Rishi Vasquez DO Work Phone: [facility] 05-21-2025 11:23-0400 Systolic blood pressure 111 mm[Hg] Dr. Rishi Vasquez DO Work Phone: [facility] 05-21-2025 10:36-0400 Body height 167.[address] Rishi Vasquez DO Work Phone: 9(929)605-146830 [place] [address] 05-21-2025 10:36-0400 Body weight 73.[address] Rishi Vasquez DO Work Phone: 3(426)037-369830 [place] [address] 05-21-2025 03:11-0400 Inhaled oxygen flow rate 2 L/min Dr. Rishi Vasquez DO Work Phone: 0(348)683-261430 [place] [address] 05-21-2025 03:05-0400 Body mass index (BMI) [Ratio] 25.9 kg/m2 Dr. Rishi Vasquez DO Work Phone: 2(974)447-216430 [place] [address] 05-20-2025 15:37-0400 Inhaled oxygen concentration 96 % Dr. Rishi Vasquez DO Work Phone: 7(048)282-783130 [place] [address] 05-18-2025 23:00-0400 Diastolic blood pressure 54 mm[Hg] Dr. Rishi Vasquez DO Work Phone: 0(432)501-560430 [place] [address] 05-18-2025 23:00-0400 Heart rate 83 /min Dr. Rishi Vasquez DO Work Phone: 5(849)155-444130 [place] [address] 05-18-2025 23:00-0400 SaO2% (BldA) [Mass fraction] 96 % Dr. Rishi Vasquez DO Work Phone: 7(714)072-473530 [place] [address] 05-18-2025 23:00-0400 Systolic blood pressure 105 mm[Hg] Dr. Rishi Vasquez DO Work Phone: 7(357)534-959830 [place] [address] 05-18-2025 20:00-0400 Body temperature 98.9 [degF] Dr. Rishi Vasquez DO Work Phone: 8(631)638-581630 [place] [address] 05-18-2025 16:00-0400 Inhaled oxygen flow rate 2 L/min Dr. Rishi Vasquez DO Work Phone: 3(811)133-760630 [place] [address] 05-18-2025 10:51-0400 Body height 167.[address] Rishi Vasquez DO Work Phone: 0(885)308-964330 [place] [address] 05-18-2025 10:51-0400 Body weight 69.[address] Rishi Vasquez DO Work Phone: 0(462)643-671730 [place] [address] 05-18-2025 08:00-0400 Inhaled oxygen concentration 96 % Dr. Rishi Vasquez DO Work Phone: 2(191)109-133530 [place] [address] 05-18-2025 06:00-0400 Body mass index (BMI) [Ratio] 24.5 kg/m2 Dr. Rishi Vasquez DO Work Phone: 1(242)038-044530 [place] [address] 05-18-2025 02:01-0400 Body temperature 103.1 [degF] Dr. Rishi Vasquez DO Work Phone: 8(007)352-490330 [place] [address] 05-18-2025 02:01-0400 Diastolic blood pressure 60 mm[Hg] Dr. Rishi Vasquez DO Work Phone: 3(798)318-628230 [place] [address] 05-18-2025 02:01-0400 Heart rate 100 /min Dr. Rishi Vasquez DO Work Phone: 1(060)126-161230 [place] [address] 05-18-2025 02:01-0400 Respiratory rate 17 /min Dr. Rishi Vasquez DO Work Phone: 8(872)307-799930 [place] [address] 05-18-2025 02:01-0400 SaO2% (BldA) [Mass fraction] 92 % Dr. Rishi Vasquez DO Work Phone: 9(511)481-669030 [place] [address] 05-18-2025 02:01-0400 Systolic blood pressure 114 mm[Hg] Dr. Rishi Vasquez DO Work Phone: 6(604)827-763830 [place] [address] 05-17-2025 21:40-0400 Body height 167.[address] Rishi Vasquez DO Work Phone: 4(538)725-465730 [place] [address] 05-17-2025 21:40-0400 Body mass index (BMI) [Ratio] 25.9 kg/m2 Dr. Rishi Vasquez DO Work Phone: 2(390)469-175130 [place] [address] 05-17-2025 21:40-0400 Body weight 72.[address] Rishi Vasquez DO Work Phone: 2(329)102-406930 [place] [address] 05-13-2025 16:09-0400 Body temperature 98.2 [degF] Dr. Rishi Vasquez DO Work Phone: 6(979)363-757030 [place] [address] 05-13-2025 16:09-0400 Body weight 70.[address] Rishi Vasquez DO Work Phone: 7(065)129-450030 [place] [address] 05-13-2025 16:09-0400 Diastolic blood pressure 54 mm[Hg] Dr. Rishi Vasquez DO Work Phone: 5(673)341-725630 [place] [address] 05-13-2025 16:09-0400 Heart rate 60 /min Dr. Rishi Vasquez DO Work Phone: 4(845)590-435330 [place] [address] 05-13-2025 16:09-0400 Respiratory rate 16 /min Dr. Rishi Vasquez DO Work Phone: 3(807)894-434030 [place] [address] 05-13-2025 16:09-0400 SaO2% (BldA) [Mass fraction] 97 % Dr. Rishi Vasquez DO Work Phone: 3(000)169-099830 [place] [address] 05-13-2025 16:09-0400 Systolic blood pressure 130 mm[Hg] Dr. Rishi Vasquez DO Work Phone: 0(449)611-746030 [place] [address] 05-07-2025 09:19-0400 Body height 167.[address] Rishi Vasquez DO Work Phone: 1(797)523-169430 [place] [address] 05-07-2025 09:19-0400 Body mass index (BMI) [Ratio] 24.7 kg/m2 Dr. Rishi Vasquez DO Work Phone: 2(431)282-691730 [place] [address] 05-07-2025 09:19-0400 Body weight 69.[address] Rishi Vasquez DO Work Phone: 7(252)115-240430 [place] [address] 05-07-2025 09:19-0400 Diastolic blood pressure 63 mm[Hg] Dr. Rishi Vasquez DO Work Phone: 4(043)449-910730 [place] [address] 05-07-2025 09:19-0400 Heart rate 56 /min Dr. Rishi Vasquez DO Work Phone: 1(942)568-519530 [place] [address] 05-07-2025 09:19-0400 Respiratory rate 16 /min Dr. Rishi Vasquez DO Work Phone: [facility] 05-07-2025 09:19-0400 Systolic blood pressure 123 mm[Hg] Dr. Rishi Vasquez DO Work Phone: [facility] 04-30-2025 11:13-0400 Body mass index (BMI) [Ratio] 24.5 kg/m2 Ld Chandra 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.RAIL CAR REPAIRER Work Phone: [facility] 04-30-2025 11:13-0400 Body weight 68.86 kg Ld Chandra 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.RAIL CAR REPAIRER Work Phone: [facility] 04-30-2025 11:13-0400 Diastolic blood pressure 60 mm[Hg] Ld Chandra 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.RAIL CAR REPAIRER Work Phone: [facility] 04-30-2025 11:13-0400 Heart rate 77 /min Ld Chandra 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.RAIL CAR REPAIRER Work Phone: [facility] 04-30-2025 11:13-0400 Respiratory rate 12 /min Ld Chandra 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.RAIL CAR REPAIRER Work Phone: [facility] 04-30-2025 11:13-0400 SaO2% (BldA) [Mass fraction] 98 % Ld Chandra 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.RAIL CAR REPAIRER Work Phone: [facility] 04-30-2025 11:13-0400 Systolic blood pressure 130 mm[Hg] Ld Chandra 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.RAIL CAR REPAIRER Work Phone: [facility] 04-15-2025 11:26-0400 Body height 167.[address] Rishi Vasquez DO Work Phone: [facility] 04-15-2025 11:26-0400 Body weight 74.[address] Rishi Vasquez DO Work Phone: [facility] 04-14-2025 07:25-0400 Body mass index (BMI) [Ratio] 26.4 kg/m2 Dr. Rishi Vasquez DO Work Phone: [facility] 04-03-2025 11:01-0400 Body temperature 98.2 [degF] Dr. Rishi Vasquez DO Work Phone: [facility] 04-03-2025 11:01-0400 Body weight 74.[address] Rishi Vasquez DO Work Phone: [facility] 04-03-2025 11:01-0400 Diastolic blood pressure 59 mm[Hg] Dr. Rihsi Vasquez DO Work Phone: [facility] 04-03-2025 11:01-0400 Heart rate 60 /min Dr. Rishi Vasquez DO Work Phone: [facility] 04-03-2025 11:01-0400 Respiratory rate 14 /min Dr. Rishi Vasquez DO Work Phone: [facility] 04-03-2025 11:01-0400 SaO2% (BldA) [Mass fraction] 97 % Dr. Rishi Vasquez DO Work Phone: [facility] 04-03-2025 11:01-0400 Systolic blood pressure 124 mm[Hg] Dr. Rishi Vasquez DO Work Phone: [facility] 03-27-2025 10:16-0400 Diastolic blood pressure 68 mm[Hg] Yumiko Podlogar 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.RAIL CAR REPAIRER Work Phone: [facility] 03-27-2025 10:16-0400 Heart rate 74 /min Yumiko Podlogar 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.RAIL CAR REPAIRER Work Phone: [facility] 03-27-2025 10:16-0400 Respiratory rate 16 /min Yumiko Podlogar 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.RAIL CAR REPAIRER Work Phone: [facility] 03-27-2025 10:16-0400 SaO2% (BldA) [Mass fraction] 99 % Yumiko Podlogar 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.RAIL CAR REPAIRER Work Phone: [facility] 03-27-2025 10:16-0400 Systolic blood pressure 134 mm[Hg] Yumiko Podlogar 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.RAIL CAR REPAIRER Work Phone: [facility] 03-20-2025 08:28-0400 Body temperature 98.9 [degF] Dr. Rishi Vasquez DO Work Phone: 9(049)833-785630 [place] [address] 03-20-2025 08:28-0400 Diastolic blood pressure 57 mm[Hg] Dr. Rishi Vasquez DO Work Phone: 1(373)220-177630 [place] [address] 03-20-2025 08:28-0400 Heart rate 52 /min Dr. Rishi Vasquez DO Work Phone: 2(340)102-498030 [place] [address] 03-20-2025 08:28-0400 Respiratory rate 18 /min Dr. Rishi Vasquez DO Work Phone: 3(484)284-478630 [place] [address] 03-20-2025 08:28-0400 SaO2% (BldA) [Mass fraction] 97 % Dr. Rishi Vasquez DO Work Phone: 5(064)112-028730 [place] [address] 03-20-2025 08:28-0400 Systolic blood pressure 142 mm[Hg] Dr. Rishi Vasquez DO Work Phone: 9(478)348-340030 [place] [address] 03-19-2025 10:06-0400 Body height 167.[address] Rishi Vasquez DO Work Phone: 1(680)137-751230 [place] [address] 03-19-2025 10:06-0400 Body mass index (BMI) [Ratio] 26.4 kg/m2 Dr. Rishi Vasquez DO Work Phone: 2(391)831-061230 [place] [address] 03-19-2025 10:06-0400 Body weight 74.[address] Rishi Vasquez DO Work Phone: 4(258)806-468930 [place] [address] 03-11-2025 15:34-0400 Body temperature 97.9 [degF] Dr. Rishi Vasquez DO Work Phone: 3(362)051-583730 [place] [address] 03-11-2025 15:34-0400 Diastolic blood pressure 47 mm[Hg] Dr. Rishi Vasquez DO Work Phone: 0(068)344-185530 [place] [address] 03-11-2025 15:34-0400 Heart rate 58 /min Dr. Rishi Vasquez DO Work Phone: 9(974)343-654930 [place] [address] 03-11-2025 15:34-0400 Respiratory rate 16 /min Dr. Rishi Vasquez DO Work Phone: 1(225)834-607630 [place] [address] 03-11-2025 15:34-0400 SaO2% (BldA) [Mass fraction] 97 % Dr. Rishi Vasquez DO Work Phone: 0(169)250-398130 [place] [address] 03-11-2025 15:34-0400 Systolic blood pressure 112 mm[Hg] Dr. Rishi Vasquez DO Work Phone: 8(136)974-062130 [place] [address] 03-11-2025 05:37-0400 Body mass index (BMI) [Ratio] 26.6 kg/m2 Dr. Rishi Vasquez DO Work Phone: 3(747)798-179130 [place] [address] 03-11-2025 05:37-0400 Body weight 75.[address] Rishi Vasquez DO Work Phone: 9(728)285-170230 [place] [address] 03-07-2025 17:01-0400 Body temperature 98 [degF] Dr. Rishi Vasquez DO Work Phone: 8(226)576-157630 [place] [address] 03-07-2025 17:01-0400 Diastolic blood pressure 78 mm[Hg] Dr. Rishi Vasquez DO Work Phone: 4(566)518-348430 [place] [address] 03-07-2025 17:01-0400 Heart rate 67 /min Dr. Rishi Vasquez DO Work Phone: 7(861)323-046030 [place] [address] 03-07-2025 17:01-0400 Respiratory rate 14 /min Dr. Rishi Vasquez DO Work Phone: 4(711)832-794930 [place] [address] 03-07-2025 17:01-0400 SaO2% (BldA) [Mass fraction] 99 % Dr. Rishi Vasquez DO Work Phone: 1(768)[phone] [place] [address] 03-07-2025 17:01-0400 Systolic blood pressure 109 mm[Hg] Dr. Rishi Vasquez DO Work Phone: 5(754)[phone] [place] [address] 03-07-2025 13:42-0400 Body height 167.[address] Rishi Vasquez DO Work Phone: [facility] 03-07-2025 13:42-0400 Body mass index (BMI) [Ratio] 27.6 kg/m2 Dr. Rishi Vasquez DO Work Phone: [facility] 03-07-2025 13:42-0400 Body weight 77.[address] Rishi Vasquez DO Work Phone: [facility] 12-05-2024 09:39-0500 Diastolic blood pressure 60 mm[Hg] Rishi Vasquez DO Work Phone: [facility] 12-05-2024 09:39-0500 Systolic blood pressure 110 mm[Hg] Rishi Vasquez DO Work Phone: [facility] 12-05-2024 09:03-0500 Body mass index (BMI) [Ratio] 25.62 kg/m2 Rishi Vasquez DO Work Phone: [facility] 12-05-2024 09:03-0500 Body temperature 97 [degF] Rishi Vasquez DO Work Phone: [facility] 12-05-2024 09:03-0500 Body weight 72 kg Rishi Vasquez DO Work Phone: [facility] 12-05-2024 09:03-0500 Heart rate 60 /min Rishi Vasquez DO Work Phone: [facility] 12-05-2024 09:03-0500 Respiratory rate 16 /min Rishi Vasquez DO Work Phone: [facility] 06-04-2024 09:43-0400 Body mass index (BMI) [Ratio] 24.69 kg/m2 Rishi Vasquez DO Work Phone: [facility] 06-04-2024 09:43-0400 Body temperature 96.6 [degF] Rishi Vasquez DO Work Phone: [facility] 06-04-2024 09:43-0400 Body weight 69.4 kg Rishi Vasquez DO Work Phone: [facility] 06-04-2024 09:43-0400 Diastolic blood pressure 70 mm[Hg] Rishi Vasquez DO Work Phone: [facility] 06-04-2024 09:43-0400 Heart rate 64 /min Rishi Vasquez DO Work Phone: [facility] 06-04-2024 09:43-0400 Respiratory rate 16 /min Rishi Vasquez DO Work Phone: [facility] 06-04-2024 09:43-0400 Systolic blood pressure 154 mm[Hg] Rishi Vasquez DO Work Phone: [facility] 02-07-2024 09:19-0400 Body mass index (BMI) [Ratio] 25.8 kg/m2 Dr. Rishi Vasquez Work Phone: [facility] 02-07-2024 09:19-0400 Body weight 72.[address] Rishi Vasquez Work Phone: [facility] 02-07-2024 09:19-0400 Diastolic blood pressure 71 mm[Hg] Dr. Rishi Vasquez Work Phone: [facility] 02-07-2024 09:19-0400 Heart rate 47 /min Dr. Rishi Vasquez Work Phone: [facility] 02-07-2024 09:19-0400 Respiratory rate 18 /min Dr. Rishi Vasquez Work Phone: [facility] 02-07-2024 09:19-0400 Systolic blood pressure 142 mm[Hg] Dr. Rishi Vasquez Work Phone: [facility] 01-15-2024 10:00-0500 Diastolic blood pressure 71 mm[Hg] Anselmo Golias PT Work Phone: [facility] 01-15-2024 10:00-0500 Heart rate 63 /min Anselmo Golias PT Work Phone: [facility] 01-15-2024 10:00-0500 Systolic blood pressure 166 mm[Hg] Anselmo Golias PT Work Phone: [facility] 07-03-2023 09:06-0400 Body height 167.[address] Rishi Vasquez Work Phone: [facility] 07-03-2023 09:06-0400 Body mass index (BMI) [Ratio] 26.1 kg/m2 Dr. Rishi Vasquez Work Phone: [facility] 07-03-2023 09:06-0400 Body weight 73.[address] Rishi Vasquez Work Phone: [facility] 07-03-2023 09:06-0400 Diastolic blood pressure 62 mm[Hg] Dr. Rishi Vasquez Work Phone: [facility] 07-03-2023 09:06-0400 Heart rate 55 /min Dr. Rishi Vasquez Work Phone: [phone] [place] [address] 07-03-2023 09:06-0400 Respiratory rate 17 /min Dr. Rishi Vasquez Work Phone: [facility] 07-03-2023 09:06-0400 SaO2% (BldA) [Mass fraction] 99 % Dr. Rishi Vasquez Work Phone: [facility] 07-03-2023 09:06-0400 Systolic blood pressure 145 mm[Hg] Dr. Rishi Vasquez Work Phone: [facility] 06-04-2023 11:25-0400 Body temperature 97.3 [degF] Rishi Vasquez DO Work Phone: [facility] 06-04-2023 11:25-0400 Body weight 72.58 kg Rishi Vasquez DO Work Phone: [facility] 06-04-2023 11:25-0400 Diastolic blood pressure 70 mm[Hg] Rishi Vasquez DO Work Phone: [facility] 06-04-2023 11:25-0400 Heart rate 60 /min Rishi Vasquez DO Work Phone: [facility] 06-04-2023 11:25-0400 Respiratory rate 16 /min Rishi Vasquez DO Work Phone: [facility] 06-04-2023 11:25-0400 Systolic blood pressure 120 mm[Hg] Rishi Vasquez DO Work Phone: [facility] 04-20-2023 08:57-0400 Body height 167.[address] Rishi Vasquez Work Phone: [facility] 04-20-2023 08:57-0400 Heart rate 56 /min Dr. Rishi Vasquez Work Phone: [facility] 04-20-2023 08:51-0400 Body mass index (BMI) [Ratio] 25.9 kg/m2 Dr. Rishi Vasquez Work Phone: [facility] 04-20-2023 08:51-0400 Body weight 73.[address] Rishi Vasquez Work Phone: [phone] [place] [address] 04-20-2023 08:51-0400 Diastolic blood pressure 72 mm[Hg] Dr. Rishi Vasquez Work Phone: 3([phone] [place] [address] 04-20-2023 08:51-0400 Respiratory rate 18 /min Dr. Rishi Vasquez Work Phone: [facility] 04-20-2023 08:51-0400 SaO2% (BldA) [Mass fraction] 99 % Dr. Rishi Vasquez Work Phone: 2(282)[phone] [place] [address] 04-20-2023 08:51-0400 Systolic blood pressure 147 mm[Hg] Dr. Rishi Vasquez Work Phone: [facility] 12-05-2022 09:40-0500 Body temperature 97.3 [degF] Rishi Vasquez DO Work Phone: [facility] 12-05-2022 09:40-0500 Body weight 72.58 kg Rishi Vasquez DO Work Phone: [facility] 12-05-2022 09:40-0500 Diastolic blood pressure 82 mm[Hg] Rishi Vasquez DO Work Phone: [facility] 12-05-2022 09:40-0500 Heart rate 64 /min Rishi Vasquez DO Work Phone: [facility] 12-05-2022 09:40-0500 Respiratory rate 16 /min Rishi Vasquez DO Work Phone: [facility] 12-05-2022 09:40-0500 Systolic blood pressure 126 mm[Hg] Rishi Vasquez DO Work Phone: [facility] 09-23-2022 09:01-0400 Body temperature 97.5 [degF] Camille Athy PA-C Work Phone: [facility] 09-23-2022 09:01-0400 Body weight 74.93 kg Camille Athy PA-C Work Phone: [facility] 09-23-2022 09:01-0400 Diastolic blood pressure 72 mm[Hg] Camille Athy PA-C Work Phone: [facility] 09-23-2022 09:01-0400 Heart rate 62 /min Camille Athy PA-C Work Phone: [facility] 09-23-2022 09:01-0400 Respiratory rate 21 /min Camille Athy PA-C Work Phone: [facility] 09-23-2022 09:01-0400 SaO2% (BldA) [Mass fraction] 99 % Camille Athy PA-C Work Phone: [facility] 09-23-2022 09:01-0400 Systolic blood pressure 160 mm[Hg] Camille Athy PA-C Work Phone: [facility] 08-15-2022 12:13-0400 Body temperature 97.81 [degF] Camille Athy PA-C Work Phone: [facility] 08-15-2022 12:13-0400 Body weight 75.03 kg Camille Athy PA-C Work Phone: [facility] 08-15-2022 12:13-0400 Diastolic blood pressure 86 mm[Hg] Camille Athy PA-C Work Phone: [facility] 08-15-2022 12:13-0400 Heart rate 49 /min Camille Familiay PA-C Work Phone: [facility] 08-15-2022 12:13-0400 Respiratory rate 18 /min Camille Barbosay PA-C Work Phone: [facility] 08-15-2022 12:13-0400 SaO2% (BldA) [Mass fraction] 98 % Camille Barbosay PA-C Work Phone: [facility] 08-15-2022 12:13-0400 Systolic blood pressure 162 mm[Hg] Camille Barbosay PA-C Work Phone: [facility] 08-08-2022 09:30-0400 Body height 167.[address] Rishi Vasquez Work Phone: [facility] Work Phone: 08-08-2022 09:30-0400 Body mass index (BMI) [Ratio] 26.6 kg/m2 Dr. Rishi Vasquez Work Phone: [facility] Work Phone: 08-08-2022 09:30-0400 Body weight 74.[address] Rishi Vasquez Work Phone: [facility] Work Phone: 08-08-2022 09:30-0400 Diastolic blood pressure 51 mm[Hg] Dr. Rishi Vasquez Work Phone: [facility] Work Phone: 08-08-2022 09:30-0400 Heart rate 46 /min Dr. Rishi Vasquez Work Phone: [facility] Work Phone: 08-08-2022 09:30-0400 Respiratory rate 16 /min Dr. Rishi Vasquez Work Phone: [facility] Work Phone: 08-08-2022 09:30-0400 Systolic blood pressure 126 mm[Hg] Dr. Rishi Vasquez Work Phone: [facility] Work Phone: 06-29-2022 09:35-0400 Diastolic blood pressure 71 mm[Hg] Dr. Rishi Vasquez Work Phone: [facility] Work Phone: 06-29-2022 09:35-0400 Respiratory rate 18 /min Dr. Rishi Vasquez Work Phone: [facility] Work Phone: 06-29-2022 09:35-0400 Systolic blood pressure 164 mm[Hg] Dr. Rishi Vasquez Work Phone: [facility] Work Phone: 06-17-2022 08:24-0400 Body temperature 97.9 [degF] Kena Older 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.RAIL CAR REPAIRER Work Phone: [facility] 06-17-2022 08:24-0400 Body weight 76.39 kg Kena Older 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.RAIL CAR REPAIRER Work Phone: [facility] 06-17-2022 08:24-0400 Diastolic blood pressure 80 mm[Hg] Kena Older 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.RAIL CAR REPAIRER Work Phone: [facility] 06-17-2022 08:24-0400 Heart rate 59 /min Kena Older 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.RAIL CAR REPAIRER Work Phone: [facility] 06-17-2022 08:24-0400 Respiratory rate 20 /min Kena Older 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.RAIL CAR REPAIRER Work Phone: [facility] 06-17-2022 08:24-0400 SaO2% (BldA) [Mass fraction] 97 % Kena Older 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.RAIL CAR REPAIRER Work Phone: [facility] 06-17-2022 08:24-0400 Systolic blood pressure 158 mm[Hg] Kena Older 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.RAIL CAR REPAIRER Work Phone: [facility] 05-31-2022 10:19-0400 Body temperature 98.29 [degF] Rishi Vasquez DO Work Phone: [facility] 05-31-2022 10:19-0400 Body weight 75.3 kg Rishi Vasquez DO Work Phone: [facility] 05-31-2022 10:19-0400 Diastolic blood pressure 70 mm[Hg] Rishi Vasquez DO Work Phone: [facility] 05-31-2022 10:19-0400 Heart rate 56 /min Rishi Vasquez DO Work Phone: [facility] 05-31-2022 10:19-0400 Systolic blood pressure 116 mm[Hg] Rishi Vasquez DO Work Phone: [facility] 02-07-2022 08:55-0400 Body height 167.[address] Rishi Vasquez Work Phone: [facility] Work Phone: 02-07-2022 08:55-0400 Body mass index (BMI) [Ratio] 26.9 kg/m2 Dr. Rishi Vasquez Work Phone: [facility] Work Phone: 02-07-2022 08:55-0400 Body weight 75.[address] Rishi Vasquez Work Phone: [facility] Work Phone: 02-07-2022 08:55-0400 Diastolic blood pressure 68 mm[Hg] Dr. Rishi Vasquez Work Phone: [facility] Work Phone: 02-07-2022 08:55-0400 Heart rate 63 /min Dr. Rishi Vasquez Work Phone: [facility] Work Phone: 02-07-2022 08:55-0400 Respiratory rate 18 /min Dr. Rishi Vasquez Work Phone: [facility] Work Phone: 02-07-2022 08:55-0400 SaO2% (BldA) [Mass fraction] 100 % Dr. Rishi Vasquez Work Phone: [facility] Work Phone: 02-07-2022 08:55-0400 Systolic blood pressure 152 mm[Hg] Dr. Rishi Vasquez Work Phone: [facility] Work Phone: 01-20-2022 09:42-0500 Body temperature 97.6 [degF] Dr. Rishi Vasquez Work Phone: [facility] Work Phone: 01-20-2022 09:42-0500 Diastolic blood pressure 56 mm[Hg] Dr. Rishi Vasquez Work Phone: [facility] Work Phone: 01-20-2022 09:42-0500 Heart rate 75 /min Dr. Rishi Vasquez Work Phone: [facility] Work Phone: 01-20-2022 09:42-0500 Respiratory rate 16 /min Dr. Rishi Vasquez Work Phone: [facility] Work Phone: 01-20-2022 09:42-0500 SaO2% (BldA) [Mass fraction] 98 % Dr. Rishi Vasquez Work Phone: [facility] Work Phone: 01-20-2022 09:42-0500 Systolic blood pressure 123 mm[Hg] Dr. Rishi Vasquze Work Phone: [facility] Work Phone: 12-29-2021 08:28-0500 Body mass index (BMI) [Ratio] 27.1 kg/m2 Dr. Rishi Vasquez Work Phone: [facility] Work Phone: 12-29-2021 08:28-0500 Body temperature 97.8 [degF] Dr. Rishi Vasquez Work Phone: [facility] Work Phone: 12-29-2021 08:28-0500 Body weight 76.[address] Rishi Vasquez Work Phone: [facility] Work Phone: 12-29-2021 08:28-0500 Diastolic blood pressure 64 mm[Hg] Dr. Rishi Vasquez Work Phone: [facility] Work Phone: 12-29-2021 08:28-0500 Heart rate 60 /min Dr. Rishi Vasquez Work Phone: [facility] Work Phone: 12-29-2021 08:28-0500 Respiratory rate 17 /min Dr. Rishi Vasquez Work Phone: [facility] Work Phone: 12-29-2021 08:28-0500 SaO2% (BldA) [Mass fraction] 97 % Dr. Rishi Vasquez Work Phone: [facility] Work Phone: 12-29-2021 08:28-0500 Systolic blood pressure 182 mm[Hg] Dr. Rishi Vasquez Work Phone: [facility] Work Phone: 10-18-2021 23:19-0500 Body mass index (BMI) [Ratio] 26.9 kg/m2 Dr. Rishi Vasquez Work Phone: [facility] Work Phone: 08-30-2017 15:31-0400 BMI (Body Mass Index) 29.78 kg/m2 Kwaku Moscoso MD [facility] Work Phone: 08-30-2017 15:31-0400 Body Temperature 98.1 [degF] Kwaku Moscoso MD [facility] Work Phone: 08-30-2017 15:31-0400 BP Diastolic 73 mm[Hg] Kwaku Moscoso MD [facility] Work Phone: 08-30-2017 15:31-0400 BP Systolic 156 mm[Hg] Kwaku Moscoso MD [facility] Work Phone: 08-30-2017 15:31-0400 Height 165.1 cm Kwaku Moscoso MD [facility] Work Phone: 08-30-2017 15:31-0400 Pulse (Heart Rate) 54 /min Kwaku Moscoso MD [facility] Work Phone: 08-30-2017 15:31-0400 Respiratory Rate 18 /min Kwaku Moscoso MD [facility] Work Phone: 08-30-2017 15:31-0400 Weight 81.19 kg Kwaku Moscoso MD [facility] Work Phone: 06-11-2017 10:53-0400 BMI (Body Mass Index) 29.7 kg/m2 [facility]isa [facility] Work Phone: 06-11-2017 10:53-0400 BP Diastolic 60 mm[Hg] Gayelisa [facility] Work Phone: 06-11-2017 10:53-0400 BP Systolic 142 mm[Hg] Gayelisa [facility] Work Phone: 06-11-2017 10:53-0400 Height 167.64 cm Gaye Kenroy [facility] Work Phone: 06-11-2017 10:53-0400 Pulse (Heart Rate) 54 /min Gayelisa [facility] Work Phone: 06-11-2017 10:53-0400 Respiratory Rate 18 /min Gayelisa [facility] Work Phone: 06-11-2017 10:53-0400 Weight 83.46 kg Agye Kenroy [facility] Work Phone: 05-02-2017 12:55-0400 BMI (Body Mass Index) 29.7 kg/m2 Marly [facility] Work Phone: 05-02-2017 12:55-0400 BP Diastolic [...] Body weight 84.55 kg Shaina Serna LPN [facility] Work Phone: 04-23-2017 11:14-0400 BP Diastolic 72 mm[Hg] [facility] Work Phone: 04-23-2017 11:14-0400 BP Systolic 125 mm[Hg] Shaina Serna LPN [facility] Work Phone: 04-23-2017 11:14-0400 Height 167.64 cm Shaina [facility] Work Phone: 04-23-2017 11:14-0400 Pulse (Heart Rate) 60 /min Shaina [facility] Work Phone: 04-23-2017 11:14-0400 Pulse Oximetry 98 % Shaina Serna LPN [facility] Work Phone: 04-23-2017 11:14-0400 Respiratory Rate 18 /min Shaina Serna [facility]PN [facility] Work Phone: 04-23-2017 11:14-0400 Weight 84.55 kg Marly Signs MD [facility] Work Phone: 02-06-2017 12:57-0400 Body Temperature 98.4 [degF] Shaina Serna [facility]PN [facility] Work Phone: 02-06-2017 12:57-0400 Body weight 80.92 kg Shaina Serna LPN [facility] Work Phone: 02-06-2017 12:57-0400 BP Diastolic 76 mm[Hg] Shaina Serna LPN [facility] Work Phone: 02-06-2017 12:57-0400 BP Systolic 140 mm[Hg] Shaina Serna LPN [facility] Work Phone: 02-06-2017 12:57-0400 BSA (Body Surface Area) 1.91 m2 Shaina Serna LPN [facility] Work Phone: 02-06-2017 12:57-0400 Height 167.64 cm Shaina Serna LPN [facility] Work Phone: 02-06-2017 12:57-0400 Weight 80.92 kg Marlyariela [facility] Work Phone: 12-05-2016 12:56-0500 Pulse Oximetry 98 % Shaina [facility] Work Phone: 11-17-2016 07:54-0500 Body surface area Derived from formula 45.87 mL/min Shaina Serna LPN [facility] Work Phone: 05-25-2015 14:56-0400 Heart rate 55 /min Shaina [facility] Work Phone: 01-12-2014 13:16-0500 Heart rate 406 ms Shaina Serna [facility] Work Phone: Encounters Encounter Date Encounter Type Care Provider Facility Start: 06-30-2025 ambulatory [facility] Facility:[facility] Start: 05-26-2025 ambulatory [facility] Facility:[facility] Start: 05-21-2025 Dr. Michaela Joshua DO [facility] Work Phone: Start: 05-20-2025 Dr. Michaela Joshua DO -[facility] Work Phone: Start: 05-19-2025 Dr. Michaela Joshua DO -[facility] Work Phone: Start: 05-19-2025 Dr. Jacinto aTmez DO -[facility] -[facility] Start: 05-19-2025 ambulatory Rishi Dewey :[facility] Start: 05-18-2025 Encounter for other preprocedural examination [facility] Start: 05-18-2025 Dr. Russell Clement MD -[facility] -[facility] Start: 05-18-2025 Dr. Jacinto Tamez DO -[facility] -[facility] Start: 05-18-2025 ambulatory Remus Ungur Facility:[facility] Start: 05-18-2025 End: 05-21-2025 Evaluation and management of inpatient Dr. Rishi Vasquez DO Work Phone: -[facility] Start: 05-18-2025 End: 05-21-2025 Dr. Maddie Merchant MD -[facility] Work Phone: Start: 05-13-2025 End: 05-13-2025 Abena VYAS -[facility] Work Phone: Start: 05-13-2025 End: 05-13-[address] Rishi Vasquez DO Work Phone: [facility] Work Phone: Start: 05-12-2025 Encounter for preprocedural cardiovascular examination [facility] Start: 05-11-2025 ambulatory Jarret Kb Facility:[facility] Start: 05-11-2025 Non-patient / Non-visit Dr. Jarret walden MD -[facility] Start: 05-11-2025 Dr. Jarret Quiles MD -[facility] Start: 05-08-2025 End: 05-08-[address] Rishi Vasquez DO Work Phone: [facility] Work Phone: Start: 05-08-2025 End: 05-08-[address] Jarret Quiles MD -Cardiovascular Services Work Phone: Start: 05-08-2025 End: 05-08-2025 Dr. Jarret Quiles MD -[facility] Services Work Phone: Start: 05-07-2025 End: 05-07-2025 Patient encounter procedure Rick Bergeron MEDICAL AIDE-C -[facility] Work Phone: Start: 05-07-2025 End: 05-07-2025 Patient encounter status Rick Bergeron -C [facility] Comment on above: Vascular surgery in May Start: 05-07-2025 End: 05-07-2025 Rick Bergeron MEDICAL AIDE-C -[facility] Work Phone: Start: 05-07-2025 End: 05-08-[address] Rishi Vasquez DO Work Phone: [facility] Work Phone: Start: 05-06-2025 End: 05-07-2025 Telephone encounter Rishi Vasquez DO Work Phone: [facility] Comment on above: Medication Problem Start: 04-30-2025 End: 04-30-2025 Office outpatient visit 25 minutes Ld Escobedo APRN.CNP Work Phone: [facility] Comment on above: Diabetes mellitus ty pe 2 with peripheral artery disease (HCC) (Primary Dx); Hyperglycemia Start: 04-30-2025 End: 04-30-2025 ambulatory LD ESCOBEDO Facility:[facility] Start: 04-27-2025 End: 04-27-[address] Rishi Vasquez DO Work Phone: [facility] Work Phone: Start: 04-27-2025 End: 04-27-[address] Ciaran Renee MD -Ultrasound [facility] Work Phone: Start: 04-27-2025 End: 04-27-2025 Dr. Ciaran Renee MD -Ultrasound [facility] Work Phone: Start: 04-27-2025 End: 04-27-2025 ambulatory Ciaran Renee Facility:[facility] Start: 04-23-2025 End: 05-18-[address] Rishi Vasquez DO Work Phone: -Cardiac Rehab Start: 04-23-[address] Rishi ponce DO -Cardiac Rehab Work Phone: Start: 04-23-2025 End: 05-18-2025 Dr. Rishi Vasquez DO -Cardiac Rehab Work Phone: Start: 04-21-[address] Rishi ponce DO -Cardiac Rehab Work Phone: Start: 04-20-2025 Non-patient / Non-visit Dr. Russell dobbs MD -[facility] Start: 04-20-2025 End: 04-20-[address] Rishi Vasquez DO Work Phone: [facility] Work Phone: Start: 04-20-2025 End: 04-20-2025 Patient encounter procedure Abena VYAS -Cardiovascular Services Work Phone: Start: 04-20-2025 End: 04-20-2025 Dr. Russell Clement MD -[facility] Start: 04-20-2025 End: 04-20-2025 ambulatory Abena Fiore Facility:[facility] Start: 04-16-2025 End: 04-16-2025 Telephone encounter Rishi Vasquez DO Work Phone: [facility] Comment on above: [facility] Plan of Care Start: 04-15-2025 ambulatory Russell Clement Facility:[facility] Start: 04-15-2025 Non-patient / Non-visit Dr. Russell dobbs MD -[facility] Start: 04-15-2025 Dr. Russell Clement MD -[facility] Start: 04-15-2025 End: 04-15-2025 Telephone encounter Ld Escobedo APRN.RAIL CAR REPAIRER [facility] Start: 04-15-2025 End: 04-15-2025 Admission to same day surgery center Dr. Russell Clement MD -Scientific Manager/Special Procedures Work Phone: Start: 04-15-2025 End: 04-15-2025 Dr. Russell Clement MD -Scientific Manager/Special Procedures Work Phone: Start: 04-15-2025 End: 04-15-[address] Rishi Vasquez DO Work Phone: [facility] Work Phone: Start: 04-07-2025 End: 04-21-2025 ambulatory Rishi Vasquez DO Work Phone: [facility] Comment on above: Diabetes Start: 04-03-2025 End: 04-03-2025 Patient encounter procedure Abena VYAS -[facility] Work Phone: Start: 04-03-2025 End: 04-03-[address] [facility] Work Phone: Start: 04-03-2025 End: 04-03-[address] Rishi Vasquez DO Work Phone: [facility] Work Phone: Start: 03-27-2025 End: 03-27-2025 Patient encounter procedure Yumiko Whitehead APRN.RAIL CAR REPAIRER Work Phone: [facility] Comment on above: Hospital discharge f ollow-up (Primary Dx); Diabetic foot ulcer associated with type 2 diabetes mellitus, unspecified laterality, unspecified part of foot, unspecified ulcer stage (HCC); Abnormality of gait; Falling episodes Start: 03-27-2025 End: 03-27-2025 ambulatory YUMIKO PODLOGAR Facility:[facility] Start: 03-26-2025 End: 03-26-2025 Telephone encounter Rishi Vasquez DO Work Phone: [facility] [place] Comment on above: Patient Update Start: 03-24-2025 End: 03-25-2025 Telephone encounter Rishi Vasquez DO Work Phone: [facility] [place] Comment on above: [facility] PT POC Start: 03-23-2025 End: 03-24-2025 Telephone encounter Rishi Vasquez DO Work Phone: [facility] [place] Comment on above: HH Nursing POC Start: 03-20-2025 End: 03-23-2025 Telephone encounter Rishi Vasquez DO Work Phone: [facility] [place] Comment on above: Orders Start: 03-19-2025 End: 03-19-[address] Phong Al MD -Cat Scan [facility] Work Phone: Start: 03-19-2025 End: 04-18-[address] Rishi Vasquez DO -Cardiac Rehab Work Phone: Start: 03-19-[address] Rishi ponce DO -Cardiac Rehab Work Phone: Start: 03-19-2025 End: 04-18-2025 Dr. Rishi Vasquez DO -Cardiac Rehab Work Phone: Start: 03-19-2025 End: 04-18-[address] Rishi Vasquez DO Work Phone: [facility] Work Phone: Start: 03-19-2025 End: 03-19-2025 ambulatory Rishi Vasquez Facility:[facility] Start: 03-13-2025 Non-patient / [facility] Start: 03-13-2025 Abena Macarena [facility] Start: 03-11-2025 End: 03-20-2025 Dr. Phong Al MD -Transitional Care Unit Start: 03-11-2025 ambulatory Kwaku Mendoza [facility] ty:[facility] Start: 03-11-2025 End: 03-20-2025 Evaluation and management of inpatient Dr. Phong Al MD -Transitional Care Unit Start: 03-11-2025 Non-patient / Non-visit Dr. Broderick Dempsey MD -[place] [facility] Work Phone: Start: 03-11-2025 Dr. Broderick Dempsey MD [facility] Work Phone: Start: 03-10-2025 Non-patient / Non-[facility] Work [facility] Start: 03-10-2025 Dr. Broderick Dempsey MD [facility] Work Phone: Start: 03-10-2025 Non-patient / Non-visit Abena Fiore [facility] Start: 03-10-2025 Abena Fiore [facility] Start: 03-09-2025 Non-patient / Non-visit Dr. Russell dobbs MD [facility] Start: 03-09-2025 Dr. Russell Clement MD [facility] Start: 03-08-2025 Non-patient / Non-visit Dr. Broderick Dempsey MD [facility] Work Phone: Start: 03-08-2025 Dr. Broderick Dempsey MD [facility] Work Phone: Start: 03-07-2025 ambulatory Maddie Merchant Facility :[facility] Start: 03-07-2025 End: 03-11-2025 Evaluation and management of inpatient Dr. Maddie Merchant MD -Medical Surgical 3 Work Phone: Start: 03-07-2025 End: 03-11-2025 Dr. Broderick Dempsey MD -Medical Surgical 3 Work Phone: Start: 02-26-2025 End: 02-26-[address] Rishi Vasquez DO Work Phone: [facility] Work Phone: Start: 02-26-2025 End: 02-26-[address] Patel Irene DPM -Laboratory, Specimen Work Phone: Start: 02-26-2025 End: 02-26-2025 Dr. Patel Irene DPM -Laboratory Specim en Work Phone: Start: 02-26-2025 End: 02-26-2025 ambulatory Patel Irene Facility:[facility] Start: 02-17-2025 End: 03-18-[address] Rishi Vasquez DO -Cardiac Rehab Work Phone: Start: 02-17-[address] Rishi ponce DO -Cardiac Rehab Work Phone: Start: 02-17-2025 End: 03-18-2025 Dr. Rishi Vasquez DO -Cardiac Rehab Work Phone: Start: 02-17-2025 End: 03-18-2025 ambulatory Rishi Vasquez Facility:[facility] Start: 02-16-2025 End: 02-16-[address] Rishi Vasquez DO Work Phone: [facility] Work Phone: Start: 02-16-2025 End: 02-16-[address] Rishi Vasquez DO -Laboratory, Specimen Work Phone: Start: 02-16-2025 End: 02-16-2025 Ciaran Berry DPM -Laboratory Specime n Work Phone: Start: 02-16-2025 End: 02-16-2025 ambulatory Ciaran Berry Facility:[facility] Start: 02-05-2025 End: 02-16-[address] Rishi Vasquez DO Work Phone: [facility] Work Phone: Start: 02-05-2025 End: 02-16-[address] Rishi Vasquez DO -Cardiac Rehab Work Phone: Start: 02-05-2025 End: 02-16-2025 Dr. Rishi Vasquez DO -Cardiac Rehab Work Phone: Start: 01-06-2025 ambulatory Brandon Membreno Facility :[facility] Start: 01-06-2025 Non-patient / Non-visit Dr. Russell dobbs MD -[facility] Start: 01-06-2025 End: 01-06-[address] Brandon Membreno DPM -Cardiovascular Services Work Phone: Start: 01-06-2025 End: 01-06-2025 ambulatory Brandon Membreno Facility:[facility] Start: 12-30-2024 End: 12-30-[address] Patel Irene DPM -Laboratory, Specimen Work Phone: Start: 12-30-2024 End: 12-30-2024 ambulatory Rishi Vasquez Facility:[facility] Start: 12-25-2024 End: 12-26-2024 Refill Rishi Vasquez DO Work Phone: [facility] Comment on above: Refill Request Start: 12-23-2024 End: 01-16-[address] Rishi Vasquez DO -Cardiac Rehab Work Phone: Start: 12-23-2024 End: 01-16-2025 ambulatory Rishi Vasquez Facility:[facility] Start: 12-18-2024 End: 12-19-2024 ambulatory Rishi Vasquez Facility:[facility] Start: 12-18-2024 End: 12-19-[address] Rishi Vasquez DO -Cardiac Rehab Work Phone: Start: 12-17-2024 End: 12-17-[address] Brandon Membreno DPM -Laboratory, Specimen Work Phone: Start: 12-17-2024 End: 12-17-2024 ambulatory Brandon Haseeb Facility:[facility] Start: 12-05-2024 End: 12-05-2024 Patient encounter procedure Rishi Vasquez DO Work Phone: [facility] [place] Comment on above: Diabetes mellitus ty pe [...] Start: 12-05-2024 End: 12-05-2024 ambulatory RISHI VASQUEZ Facility:[facility] Start: 12-01-2024 End: 12-01-2024 ambulatory RISHI VASQUEZ Facility:[facility] Start: 11-29-2024 ambulatory Rishi Vasquez Facilit y:[facility] Start: 11-18-2024 End: 11-18-2024 ambulatory Rishi Vasquez Facility:[facility] Start: 11-18-2024 End: 11-18-[address] Rishi Vasquez DO -Cardiac Rehab Work Phone: Start: 10-14-2024 End: 10-18-2024 ambulatory Rishi Vasquez Facility:[facility] Start: 09-18-2024 End: 09-18-2024 ambulatory Rishi Vasquez Facility:[facility] Start: 09-10-2024 End: 09-15-2024 Telephone encounter Rishi Vasquez DO Work Phone: [facility] [place] Comment on above: Patient Question Start: 09-05-2024 End: 09-05-2024 Patient encounter procedure [facility] [place] Work Phone: [facility] [place] Start: 09-05-2024 End: 09-05-2024 ambulatory [facility] [place] Work Phone: [facility] [place] Start: 08-18-2024 End: 08-19-2024 Telephone encounter Rishi L Vasquez DO Work Phone: [facility] [place] Comment on above: Patient Question (Fi sh oil - [place] 3) Start: 08-16-2024 End: 08-18-2024 ambulatory Rishi Taterison DO Work Phone: [facility] Comment on above: OMEGA 3 FROM FISH OI L Start: 08-14-2024 End: 08-18-2024 ambulatory Rishi Vasquez Facility:[facility] Start: 08-08-2024 End: 08-12-2024 Telephone encounter Rishi Taterison DO Work Phone: [facility] Comment on above: Patient Update Start: 08-01-2024 End: 08-01-2024 ambulatory Rishi Vasquez Facility:[facility] Start: 07-17-2024 End: 07-19-2024 ambulatory Rishi Vasquez Facility:[facility] Start: 06-19-2024 End: 06-19-2024 ambulatory Curtis Prakton Facility:[facility] Start: 06-17-2024 End: 06-18-2024 ambulatory Rishi Vasuqez Facility:[facility] Start: 06-13-2024 Telephone encounter Rishi Pichardo arrison DO Work Phone: [facility] Start: 06-10-2024 ambulatory No Pcp 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 Navigate [facility] [place] Start: 06-10-2024 Patient encounter procedure No Pcp 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 [facility] [place] Start: 06-04-2024 Documentation procedure Mammog rain Coordinator [facility] Department Start: 06-04-2024 Letter encounter Mammography Coordinator [facility] Department Start: 06-04-2024 Telephone encounter Rishi Pichardo arrison DO Work Phone: [facility] Comment on above: Results Start: 06-04-2024 End: 06-04-2024 ambulatory RISHI L VASQUEZ Facility:[facility] Start: 06-04-2024 End: 06-04-2024 Patient encounter procedure Rishi Lawrence Vasquez DO Work Phone: [facility] Comment on above: Chronic midline low back [...] Start: 06-03-2024 End: 06-03-2024 ambulatory RISHI VASQUEZ Facility:[facility] Start: 06-03-2024 End: 06-03-2024 Subsequent hospital visit by physician Screen Mammo [facility] Comment on above: Encounter for screen ing mammogram for malignant neoplasm of breast [Z12.31] Start: 05-30-2024 End: 05-30-2024 ambulatory CLARY ANDRES Facility:[facility] Start: 05-19-2024 Telephone encounter Rishi julian DO Work Phone: [facility] Comment on above: Orders Start: 05-18-2024 ambulatory Rishi Wright son DO Work Phone: [facility] Comment on above: Blood work Start: 03-22-2024 Refill Rishi Wright son DO Work Phone: [facility] Comment on above: Refill Request Start: 03-20-2024 End: 03-20-2024 ambulatory Anselmo Marr PT Work Phone: [facility] Comment on above: 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 Rishi Vasquez Work Phone: [facility] Work Phone: Start: 03-18-2024 End: 03-18-[address] Rishi Vasquez Work Phone: [facility]-Cardiac Rehab Work Phone: Start: 03-13-[address] Jim Vasquez Work Phone: [facility]-Cardiac Rehab Work Phone: Start: 03-11-2024 Non-patient / Non-visit Dr. Marcie Vasquez Work Phone: [facility] Start: 03-11-2024 End: 03-11-[address] Rishi Vasquez Work Phone: [facility] Work Phone: Start: 03-11-2024 End: 03-11-[address] 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 Rishi Vasquez Work Phone: [facility] Work Phone: Start: 02-14-2024 End: 02-17-[address] Rishi Vasquez Work Phone: [facility]-Cardiac Rehab Work Phone: Start: 02-07-2024 End: 02-07-[address] 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) Start: 01-28-2024 Refill Clary Andres RAIL CAR REPAIRER Work Phone: [facility] Comment on above: Refill Request Start: 01-23-2024 End: 01-23-2024 ambulatory Anselmo Golias PT Work Phone: [facility] Comment on above: 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) Start: 01-17-2024 End: 01-17-2024 ambulatory [facility] Work Phone: Start: 01-17-2024 End: 01-17-2024 Discharged Recurring [facility]-Cardiac Rehab Work Phone: Start: 01-15-2024 End: 01-15-2024 ambulatory Anselmo Golias PT Work Phone: [facility] Comment on above: Chronic midline low back pain without sciatica Start: 01-14-2024 ambulatory Rishi Wright son DO Work Phone: [facility] Start: 01-14-2024 Patient encounter procedure Rishi Vasquez DO Work Phone: [facility] Comment on above: APPOINTMENT WITH GEN PEPPER SURGEON Start: 01-10-2024 Telephone encounter Rishi Lawrence Marino eliel DO Work Phone: [facility] Comment on above: Results Start: 12-27-2023 ambulatory Rishi contreras DO Work Phone: [facility] Comment on above: MEDICATION QUESTION Start: 12-27-2023 Telephone encounter Rishi Melinda Pichardo eliel DO Work Phone: [facility] Comment on above: Patient Update Start: 12-20-2023 End: 12-20-2023 Subsequent hospital visit by physician [facility] Work Phone: Radiology Comment on above: Multiple thyroid nod ules [E04.2] Start: 12-18-2023 End: 12-19-2023 Discharged Recurring [facility]-Cardiac Rehab Work Phone: Start: 12-10-2023 End: 12-10-2023 Subsequent hospital visit by physician [facility] Work Phone: Radiology Comment on above: Chronic midline low back pain without sciatica [M54.50, G89.29] Start: 11-15-2023 End: 11-18-2023 ambulatory [facility] Work Phone: Start: 11-15-2023 End: 11-18-2023 Discharged Recurring [facility]-Cardiac Rehab Work Phone: Start: 10-18-2023 End: 10-18-[address] Rishi Vasquez Work Phone: [facility] Work Phone: Start: 10-18-2023 End: 10-18-[address] Rishi Vasquez Work Phone: [facility]-Cardiac Rehab Work Phone: Start: 10-03-2023 Refill Rishi contreras DO Work Phone: [facility] Comment on above: Refill Request Start: 09-18-2023 End: 09-18-[address] Rishi Vasquez Work Phone: [facility] Work Phone: Start: 09-18-2023 End: 09-18-[address] Rishi Vasquez Work Phone: [facility]-Cardiac Rehab Work Phone: Start: 09-13-[address] Jim Vasquez Work Phone: [facility]-Cardiac Rehab Work Phone: Start: 08-31-2023 End: 08-31-2023 ambulatory [facility] [place] Work Phone: [facility] Start: 08-18-2023 Telephone encounter Rishi julian DO Work Phone: [facility] Comment on above: Results Start: 08-16-2023 End: 08-16-[address] Rishi Vasquez Work Phone: [facility]-Laboratory Work Phone: Start: 08-16-2023 End: 08-18-[address] Rishi Vasquez Work Phone: [facility] Work Phone: Start: 08-16-2023 End: 08-18-[address] Rishi Vasquez Work Phone: [facility]-Cardiac Rehab Work Phone: Start: 07-31-2023 Telephone encounter Rishi julian DO Work Phone: [facility] Comment on above: Results Start: 07-31-[address] Jim Vasquez Work Phone: [facility]-Cardiac Rehab Work Phone: Start: 07-26-2023 End: 07-26-[address] Rishi Vasquez Work Phone: [facility] Work Phone: Start: 07-26-2023 End: 07-26-[address] Rishi Vasquez Work Phone: [facility]-Laboratory, Specimen Work Phone: Start: 07-19-2023 End: 07-19-[address] Rishi Vasquez Work Phone: [facility] Work Phone: Start: 07-19-2023 End: 07-19-[address] Rishi Vasquez Work Phone: [facility]-Cardiac Rehab Work Phone: Start: 07-10-2023 Telephone encounter Danyelle allen PA-C Work Phone: [phone] [place] [address] Comment on above: Results Start: 07-10-2023 End: 07-10-2023 Subsequent hospital visit by physician Diagnostic Mammo [facility] Comment on above: Abnormal mammogram [ R92.8] Start: 07-03-2023 End: 07-03-[address] Rishi Vasquez Work Phone: [facility] Work Phone: Start: 06-14-2023 End: 06-18-[address] Rishi Vasquez Work Phone: [facility] Work Phone: Start: 06-14-2023 End: 06-18-[address] Rishi Vasquez Work Phone: [facility]-Cardiac Rehab Work Phone: Start: 06-14-[address] Jim Vasquez Work Phone: [facility]-Cardiac Rehab Work Phone: Start: 06-12-2023 Non-patient / Non-visit Dr. Marcie Vasquez Work Phone: [facility] Start: 06-12-2023 End: 06-12-[address] Rishi Vasquez Work Phone: [facility] Work Phone: Start: 06-12-2023 End: 06-12-[address] Rishi Vasquez Work Phone: [facility]-Cardiovascul ar Services Work Phone: Start: 06-04-2023 End: 06-04-2023 Patient encounter procedure Rishi Vasquez DO Work Phone: [facility] Comment on above: Dysuria (Primary Dx) ; Acute cystitis with hematuria; Peripheral vascular occlusive disease (HCC); 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); CKD stage G3b/A1, GFR 30-44 and albumin creatinine ratio <30 mg/g (HCC); Dyslipidemia (high LDL; low HDL); Vitamin D deficiency; Multinodular thyroid; Essential hypertension; Arthritis, multiple joint involvement Start: 05-29-2023 Documentation procedure Mammog rain Coordinator [facility] Start: 05-29-2023 Letter encounter Mammography Coordinator [facility] Department Start: 05-29-2023 Telephone encounter Danyelle allen PA-C Work Phone: [facility] Comment on above: Results Start: 05-29-2023 End: 05-29-2023 Subsequent hospital visit by physician Screen Mammo [facility] Comment on above: Encounter for screen ing mammogram for malignant neoplasm of breast [Z12.31] Start: 05-27-2023 Refill Rishi contreras DO Work Phone: [facility] Comment on above: Refill Request Start: 05-17-2023 End: 05-18-[address] Rishi Vasquez Work Phone: [facility] Work Phone: Start: 05-17-2023 End: 05-18-[address] Rishi Vasquez Work Phone: [facility]-Cardiac Rehab Work Phone: Start: 04-20-2023 End: 04-20-[address] Rishi Vasquez Work Phone: [facility] Work Phone: Start: 04-17-2023 End: 04-18-2023 ambulatory [facility] Work Phone: Start: 04-17-2023 End: 04-18-2023 Discharged Recurring [facility]-Cardiac Rehab Start: 03-15-2023 End: 03-18-2023 ambulatory [facility] Work Phone: Start: 03-15-2023 End: 03-18-2023 Discharged Recurring [facility]-Cardiac Rehab Start: 03-12-2023 Telephone encounter Rishi julian DO Work Phone: [facility] Comment on above: Release Of Medical R ecords Start: 02-27-2023 ambulatory Rishi Wright son DO Work Phone: Internal Medicine [facility] Start: 02-15-2023 End: 02-16-[address] Rishi Vasquez Work Phone: [facility] Work Phone: Start: 02-15-2023 End: 02-16-[address] Rishi Vasquez Work Phone: [facility]-Cardiac Rehab Start: 02-05-2023 ambulatory Rishi Tatedolly son DO Work Phone: [facility] Comment on above: MAMOGRAM Start: 01-22-2023 Telephone encounter Rishi julian DO Work Phone: [facility] Comment on above: Appointment; Phuong VYAS Start: 01-16-2023 End: 01-16-[address] Rishi Vasquez Work Phone: [facility] Work Phone: Start: 01-16-2023 End: 01-16-[address] Rishi Vasquez Work Phone: [facility]-Cardiac Rehab Start: 01-08-2023 Refill Clary Andres APRN.CNP Work Phone: [facility] Comment on above: Refill Request Start: 01-04-2023 Telephone encounter Rishi julian DO Work Phone: [facility] Comment on above: Results Start: 12-29-2022 End: 12-29-2022 Subsequent hospital visit by physician [facility] Work Phone: Nuclear Medicine Comment on above: Abnormal thyroid fun ction test [R94.6] Start: 12-28-2022 End: 12-28-2022 Subsequent hospital visit by physician Injection [facility] Work Phone: Nuclear Medicine Comment on above: Abnormal thyroid fun ction test [R94.6] Start: 12-26-2022 Telephone encounter Rishi julian DO Work Phone: [facility] Comment on above: Results Start: 12-20-2022 End: 12-20-2022 Subsequent hospital visit by physician [facility] Work Phone: Radiology Comment on above: Abnormal thyroid fun ction test [R94.6] Start: 12-19-2022 End: 12-19-[address] Rishi Vasquez Work Phone: [facility] Work Phone: Start: 12-19-2022 End: 12-19-[address] Rishi Vasquez Work Phone: [facility]-Cardiac Rehab Start: 12-07-2022 Telephone encounter Rishi julian DO Work Phone: [facility] Comment on above: testing question Start: 12-05-2022 End: 12-05-2022 Patient encounter procedure Rishi Vasquez DO Work Phone: [facility] Comment on above: Diabetes mellitus ty pe 2 with peripheral artery disease (HCC) (Primary Dx); Peripheral vascular occlusive disease (HCC); Dyslipidemia (high LDL; low HDL); Essential hypertension; Dizziness; Carotid atherosclerosis, bilateral; Biceps rupture, proximal, left, initial encounter; Chronic kidney disease, stage 3a (HCC) Start: 11-16-2022 End: 11-18-[address] Rishi Vasquez Work Phone: [facility] Work Phone: Start: 11-16-2022 End: 11-18-[address] Rishi Vasquez Work Phone: [facility]-Cardiac Rehab Start: 11-02-[address] Jim Vasquez Work Phone: [facility]-Cardiac Rehab Start: 10-27-2022 Non-patient / Non-visit Dr. Marcie Vasquez Work Phone: [facility] Start: 10-27-2022 End: 10-27-[address] Rishi Vasquez Work Phone: [facility] Work Phone: Start: 10-27-2022 End: 10-27-[address] Rishi Vasquez Work Phone: [facility]-Cardiovascul ar Services Start: 10-17-2022 End: 10-18-[address] Rishi Vasquez Work Phone: [facility] Work Phone: Start: 10-17-2022 End: 10-18-[address] Rishi Vasquez Work Phone: [facility]-Cardiac Rehab Start: 09-23-2022 End: 09-23-2022 Patient encounter procedure Camille Mitchell PA-C Work Phone: [facility] Comment on above: Acute cystitis with hematuria (Primary Dx) Start: 09-14-2022 End: 09-18-[address] Rishi Vasquez Work Phone: [facility] Work Phone: Start: 09-14-2022 End: 09-18-[address] Rishi Vasquez Work Phone: [facility] Start: 09-09-2022 End: 09-09-2022 ambulatory Immunization Clinic Nurse [place] Work Phone: [facility] Comment on above: Arrived Start: 09-06-2022 Telephone encounter Rishi julian DO Work Phone: [facility] Comment on above: Results Start: 08-17-2022 End: 08-18-[address] Rishi Vasquez Work Phone: [facility] Work Phone: Start: 08-17-2022 End: 08-18-[address] Rishi Vasquez Work Phone: [facility] Start: 08-15-2022 End: 08-15-2022 Subsequent hospital visit by physician Daniela [facility] Work Phone: Radiology Comment on above: Injury of sternum, i nitial encounter [S29.9XXA] Start: 08-15-2022 End: 08-15-2022 Patient encounter procedure Camille Mitchell PA-C Work Phone: [facility] Comment on above: Injury of sternum, i nitial encounter (Primary Dx); Wrist injury, right, initial encounter Start: 08-08-2022 End: 08-08-[address] Rishi Vasquez Work Phone: [facility] Start: 07-18-2022 End: 07-19-[address] Rishi Vasquez Work Phone: [facility] Work Phone: Start: 07-18-2022 End: 07-19-[address] Rishi Vasquez Work Phone: [facility] Start: 06-29-2022 End: 06-29-[address] Rishi Vasquez Work Phone: [facility] Start: 06-22-2022 Non-patient / Non-visit Dr. Marcie Vasquez Work Phone: [facility] Start: 06-22-2022 End: 06-22-[address] Rishi Vasquez Work Phone: [facility] Start: 06-17-2022 End: 06-17-2022 Subsequent hospital visit by physician Xr [facility] Work Phone: Radiology Comment on above: Acute pain of right shoulder [M25.511] Start: 06-17-2022 End: 06-17-2022 Patient encounter procedure Kena Sims APRN.CNP Work Phone: [facility] Comment on above: Acute pain of right shoulder (Primary Dx) Start: 06-15-2022 End: 06-18-2022 Discharged Recurring [facility] Start: 06-05-2022 Documentation procedure Mammog rain Coordinator [facility] Start: 06-05-2022 Letter encounter Mammography Coordinator [facility] Department Start: 06-05-2022 Telephone encounter Yani Cid APRN.CNP Work Phone: [facility] Comment on above: Results; Appointment Start: 06-05-2022 End: 06-05-2022 Subsequent hospital visit by physician Screen Mammo [facility] Comment on above: Encounter for screen ing mammogram for malignant neoplasm of breast [Z12.31] Start: 05-31-2022 End: 05-31-2022 Patient encounter procedure Rishi Vasquez DO Work Phone: [facility] Comment on above: Diabetes mellitus ty pe 2 with peripheral artery disease (HCC) (Primary Dx); Peripheral vascular occlusive disease (HCC); Vitamin D deficiency; Stage 3 chronic kidney disease, unspecified whether stage 3a or 3b CKD (HCC); Essential hypertension; Dyslipidemia (high LDL; low HDL); Arthritis, multiple joint involvement; Coronary artery disease involving [place] heart, unspecified vessel or lesion type, unspecified whether angina present; Fatigue, unspecified type Start: 05-24-2022 Telephone encounter Rishi julian DO Work Phone: General Surgery Comment on above: Outpatient [place] [facility] Start: 05-18-2022 End: 05-18-2022 Discharged Recurring [facility] Start: 05-01-2022 Refill Rishi Melinda contreras DO Work Phone: [facility] Comment on above: Refill Request Start: 04-25-2022 ambulatory Rishi Lawrence Adriana son DO Work Phone: [facility] Comment on above: BLOOD WORK Start: 04-21-2022 Refill Yani mcclure APRN.CNP Work Phone: [facility] Comment on above: Refill Request Start: 04-18-2022 End: 04-18-[address] Rishi Vasquez Work Phone: [facility] Start: 03-22-2022 Refill Rishi Melinda Wright son DO Work Phone: [facility] Comment on above: Refill Request Start: 03-16-2022 End: 03-18-[address] Rishi Vasquez Work Phone: [facility] Start: 02-24-2022 Telephone encounter Yani Sanches maheshnelli YAEL Work Phone: [facility] Comment on above: Results Start: 02-16-2022 End: 02-16-[address] Rishi Vasquez Work Phone: [facility] Start: 02-07-2022 End: 02-07-[address] Rishi Vasquez Work Phone: [facility] Start: 01-20-2022 Non-patient / Non-visit Dr. Marcie Vasquez Work Phone: [facility] Start: 01-20-2022 End: 01-20-2022 Admission to same day surgery center Dr. Rishi Vasquez Work Phone: [facility] Start: 01-10-2022 End: 01-16-[address] Rishi Vasquez Work Phone: [facility] Start: 12-29-2021 End: 12-29-[address] Rishi Vasquez Work Phone: [facility] Start: 12-15-2021 End: 12-19-[address] Rishi Vasquez Work Phone: [facility] Start: 11-17-2021 End: 11-18-[address] Rishi Vasquez Work Phone: [facility] Procedures Date Procedure Procedure Detail Performing Clinician Start: 05-21-2025 Blood count smear rscp w/mnl difrntl wbc count Dr. Rishi Vasquez DO Work Phone: Start: 05-21-[address] Rishi Vasquez DO Work Phone: Start: 05-21-2025 Mean corpuscular hemoglobin concentration determination Dr. Rishi Vasquez DO Work Phone: Start: 05-21-2025 Nucleated red blood cell count procedure Dr. Rishi Vasquez DO Work Phone: Start: 05-21-2025 Platelet mean volume determination Dr. Rishi Vasquez DO Work Phone: Start: 05-20-[address] Rishi Vasquez DO Work Phone: Start: 05-20-2025 Gram stain microscopy Jarad Vasquez DO Work Phone: Start: 05-19-2025 Serum inorganic phos phate measurement Dr. Rishi Vasquez DO Work Phone: Start: 05-18-2025 Bacterial nucleic ac id assay Dr. Rishi Vasquez DO Work Phone: Start: 05-18-2025 Gram stain microscopy Jarad Vasquez DO Work Phone: Start: 05-18-2025 End: 05-18-2025 Microbial culture, routine Dr. Rishi Vasquez DO Work Phone: Start: 05-18-2025 X-ray of ankle, thre e or more views Dr. Rishi Vasquez DO Work Phone: Start: 05-18-[address] Marcie Vasquez DO Work Phone: Start: 05-18-2025 CT angiography of ch est with contrast Dr. Rishi Vasquez DO Work Phone: Start: 05-18-2025 CT of abdomen and pe lvis without contrast Dr. Rishi Vasquez DO Work Phone: Start: 05-18-2025 Blood count smear rscp w/mnl difrntl wbc count Dr. Rishi Vasquez DO Work Phone: Start: 05-18-2025 Calculation of international normalized ratio Dr. Rishi Vasquez DO Work Phone: Start: 05-18-[address] Rishi Vasquez DO Work Phone: Start: 05-18-2025 Mean corpuscular hemoglobin concentration determination Dr. Rishi Vasquez DO Work Phone: Start: 05-18-2025 Nucleated red blood cell count procedure Dr. Rishi Vasquez DO Work Phone: Start: 05-18-2025 Platelet mean volume determination Dr. Rishi Vasquez DO Work Phone: Start: 05-18-2025 Urine microscopy: re d cells Dr. Rishi Vasquez DO Work Phone: Start: 05-18-2025 Urnls dip stick/tabl et reagent auto microscopy Dr. Rishi Vasquez DO Work Phone: Start: 05-17-2025 Plain chest X-ray Dr. Saud Vasquez DO Work Phone: Start: 05-17-2025 X-ray of foot, three or more views Dr. Rishi Vasquez DO Work Phone: Start: 05-17-2025 End: 05-17-[address] Rishi Vasquez DO Work Phone: Start: 05-17-[address] Rishi Vasquez DO Work Phone: Start: 05-17-2025 Mean corpuscular hemoglobin concentration determination Dr. Rishi Vasquez DO Work Phone: Start: 05-17-2025 Nucleated red blood cell count procedure Dr. Rishi Vasquez DO Work Phone: Start: 05-17-2025 Platelet mean volume determination Dr. Rishi Vasquez DO Work Phone: Start: 05-17-2025 Serum inorganic phos phate measurement Dr. Rishi Vasquez DO Work Phone: Start: 05-17-[address] Jim Vasquez DO Work Phone: Start: 05-08-2025 Cardiovascular stres s test using [...] 65+ YR, HIGH DOSE, QUADRIVALENT (FLUZONE HIGH-DOSE) Dulce Chance MD Work Phone: Start: 08-16-2023 Anaerobic [...] Start: 05-29-2023 End: 05-29-2023 Mammography Clary Andres 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.RAIL CAR REPAIRER Work Phone: Start: 12-29-2022 Thyroid uptake w/blo od flow sngle/mult jamari natalia Rishi Vasquez DO Work Phone: Start: 12-20-2022 Us soft tissue head & neck real time imge docm Rishi Vasquez DO Work Phone: Start: 09-23-2022 Urnls dip stick/tabl et rgnt auto w/o microscopy Patel Aquino APRN.RAIL CAR REPAIRER Work Phone: Start: 09-09-2022 INFLUENZA SEASONAL QUADRIVALENT HIGH DOSE AGE 65+ Rishi Vasquez DO Work Phone: Start: 09-27-2022 Radex wrist complete minimum 3 views Camille Mitchell PA-C Work Phone: Start: 06-17-2022 Radex shoulder compl ete minimum 2 views Kena Schrader 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.RAIL CAR REPAIRER Work Phone: Start: 06-05-2022 End: 06-05-2022 Screening mammography bi 2-view breast inc cad Rishi Vasquez DO Work Phone: Start: 05-31-2022 Hemoglobin A1c/Hemoglobin.total in Blood Rishi Vasquez DO Work Phone: Start: 01-20-2022 Colonoscopy [facility] 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.RAIL CAR REPAIRER Work Phone: Start: 06-10-2021 Mammography [facility] 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.RAIL CAR REPAIRER Work Phone: Start: 06-11-2017 End: 06-11-2017 ISAC [...] [Units/volume] in Serum or Plasma Rebekah Castrejon MEDICAL AIDE Work Phone: Start: 02-06-2017 End: 02-07-2017 Thyrotropin [Units/volume] in Serum or Plasma Rebekah Castrejon MEDICAL AIDE Work Phone: Start: 02-06-2017 End: 02-07-2017 Thyroxine (T4) free [Mass/volume] in Serum or Plasma Rebekah Castrejon MEDICAL AIDE Work Phone: Start: 02-06-2017 End: 02-07-2017 Triiodothyronine (T3) Free [Mass/volume] in Serum or Plasma Rebekah Castrejon MEDICAL AIDE Work Phone: Start: 02-06-2017 End: 02-06-2017 Dietary management education, guidance, and counseling Shaina Serna LPN Start: 02-06-2017 End: 02-07-2017 Thyroid stimulating hormone (TSH) Rebekah Castrejon MEDICAL AIDE Work Phone: Start: 02-06-2017 End: 02-08-2017 Thyroperoxidase antibody Rebekah Castrejon MEDICAL AIDE Work Phone: Start: 02-06-2017 End: 02-07-2017 Thyroxine (T4) free Rebekah Castrejon MEDICAL AIDE Work Phone: Start: 02-06-2017 End: 02-07-2017 Triiodothyronine (T3) free Rebekah Castrejon MEDICAL AIDE Work Phone: Start: 01-08-2017 End: 01-15-2017 *BMP [...] 01-04-2017 End: 01-15-2017 *CBC with Differential Marly J Signs Start: 01-04-2017 End: 01-04-2017 Bacterica wound culture Marly Saud Signs Lebron Abraham Start: 01-04-2017 End: 01-15-2017 C reactive protein (hsCRP) Marly Saud Signs Start: 01-04-2017 End: 01-15-2017 Erythrocyte sedimentation rate Marly J Signs Start: 01-04-2017 End: 01-04-2017 MRSA presence Marly J Sukumar LUNDBERG Start: 01-04-2017 End: 01-04-2017 X-ray exam of foot Marly Saud Patino MD Start: 01-01-2017 End: 01-02-2017 *CBC with Differential Marly J Signs Start: 01-01-2017 End: 01-02-2017 C reactive protein [Mass/volume] in Serum or Plasma by High sensitivity method Marly Saud Signs Start: 01-01-2017 End: 01-02-2017 Erythrocyte sedimentation rate Marly J Signs Start: 01-01-2017 End: 01-02-2017 *CBC with Differential Marly J Signs Start: 01-01-2017 End: 01-02-2017 C reactive protein (hsCRP) Marly Saud Patino MD Start: 01-01-2017 End: 01-02-2017 Erythrocyte sedimentation rate Marly J Sukumar LUNDBERG Start: 12-20-2016 End: 12-20-2016 Radex foot complete minimum 3 views Marly Saud Patino MD Start: 12-20-2016 End: 12-20-2016 Niurka Serna LPN Start: 12-20-2016 End: 12-20-2016 X-ray exam of foot Marly Patino MD Start: 12-18-2016 End: 12-20-2016 *CDIF - Clostridium Diff. Toxin Stool Marlyariela Patino MD Start: 12-18-2016 End: 12-20-2016 *CDIF - Clostridium Diff. Toxin Stool Marly Patino MD Start: 12-13-2016 End: 12-15-2016 Radex foot complete minimum 3 views Marly Patino MD Start: 12-13-2016 End: 12-15-2016 X-ray exam of foot Marly Patino MD Start: 12-05-2016 End: 12-05-2016 ISAC Ch MD [...] Dalila subq tissue 20 sq cm/< Marly Patino MD Start: 11-30-2015 End: 11-30-2015 IASC Ch MD Work Phone: Start: 11-30-2015 End: [...] Start: 06-12-2014 End: 06-22-2014 Carotid duplex Ira oLpez PA-C Work Phone: Start: 06-12-2014 End: 06-12-2014 Follow Up Appt Other Ira Lopez PA-C Work Phone: Start: 06-12-2014 End: 06-18-2014 24 hour holter monitor Ira Lopez PA-C Work Phone: Start: 06-12-2014 End: 06-22-2014 Carotid duplex Ira Lopez PA-C Work Phone: Start: 06-12-2014 End: 06-12-2014 Follow Up Appt Other Ira Lopez PA-C Work Phone: Start: 02-02-2014 End: 04-27-2014 Cardiac Rehab Brnadon Ch MD Work Phone: Start: 02-02-2014 End: [...] RSV Vaccine (1 - 1-dose 75+ series) [facility] Start: 01-20-2027 Colonoscopy COLONOSCOPY [facility] Start: 01-20-2027 COLORECTAL CANCER SCREENING COLORECTAL CANCER SCREENING [facility] Start: 01-20-2027 Screening for malignant neoplasm of colon [facility] Start: 04-30-2026 Annual PCP Team Chronic Disease Visit Annual PCP Team Chronic Disease Visit [facility] Start: 04-30-2026 Covid-19 Vaccine () Covid-19 Vaccine () [facility] Comment on above: Postponed from 07/20/2024 (Declined at t his time) Start: 04-30-2026 Shingrix Vaccine (1 of 2) Shingrix Vaccine (1 of 2) [facility] Comment on above: Postponed from 2002 (Declined at t his time) Start: 04-30-2026 Urine microalbumin profile DTaP,Tdap,Td Vaccine (2 - Td or Tdap) [facility] Comment on above: Postponed from 04/24/2023 (Declined at t his time) Start: 03-27-2026 Annual PCP Team Chronic Disease Visit Annual PCP Team Chronic Disease Visit [facility] Start: 12-05-2025 Annual PCP Team Chronic Disease Visit Annual PCP Team Chronic Disease Visit [facility] Start: 12-05-2025 BP Controlled (<130/80) BP Controlled (<130/80) [facility] Start: 12-01-2025 Complete blood count Hemoglobin/Hematocrit [facility] Start: 12-01-2025 Creatinine measurement Serum Creatinine [facility] Start: 12-01-2025 Hepatitis B surface antibody level LDL Cholesterol [facility] Start: 06-16-2025 End: 06-16-2025 Patient encounter procedure 06/16/2025 12:00 PM EDT Office Visit [facility] [address] [place] [address] Rishi Vasquez DO [address] [facility] [place], [place] [address] LVM 1st attempt Physical [facility] Comment on above: LVM 1st attempt Physical Start: 06-09-2025 End: 06-09-2025 Patient encounter procedure 06/09/2025 9:00 AM EDT Office Visit [facility] [address] [place] [address] Rishi Vasquez DO [address] [facility] [place] [address] Physical [facility] Comment on above: Physical Start: 06-08-2025 End: 06-08-2025 ambulatory 06/08/2025 8:30 AM EDT Results Only [facility] Draw Station [address] [facility] [place] [address] [facility] Start: 06-04-2025 Annual PCP Team Chronic Disease Visit Annual PCP Team Chronic Disease Visit [facility] Start: 06-04-2025 BP Controlled (<130/80) BP Controlled (<130/80) [facility] Start: 06-04-2025 End: 06-04-2025 Patient encounter procedure 06/04/2025 9:30 AM EDT Appointment Mammogram [address] [place] [address] Encounter for screening mammogram for malignant neoplasm of breast [Z12.31] Mammogram Comment on above: Encounter for screening mammogram for ma lignant neoplasm of breast [Z12.31] Start: 06-03-2025 Screening for malignant neoplasm of breast Mammogram Screening [facility] Start: 06-02-2025 Glaucoma screening Dilated Retinal Exam [facility] Start: 05-31-2025 Hemoglobin A1c measurement HbA1C [facility] Start: 05-30-2025 Complete blood count Hemoglobin/Hematocrit [facility] Start: 05-30-2025 Creatinine measurement Serum Creatinine [facility] Start: 05-30-2025 Hepatitis B surface antibody level LDL Cholesterol [facility] Start: 05-21-2025 End: 05-21-2025 [facility] Start: 05-21-2025 Patient discharge [facility] Start: 05-21-2025 Referral to service [facility] Start: 05-21-2025 Referral to service [facility] Start: 05-20-2025 Microbial culture, routine [facility] Start: 05-20-2025 End: 05-20-2025 [facility] Start: 05-20-2025 Mycology culture [facility] Start: 05-20-2025 Source specific culture [facility] Start: 05-19-2025 Serum inorganic phosphate measurement [facility] Start: 05-19-2025 [facility] Start: 05-18-2025 Urine culture [facility] Start: 05-18-2025 End: 05-18-2025 [facility] Start: 05-18-2025 Catheterization of vein [facility] Start: 05-18-2025 Consultation [facility] Start: 05-18-2025 Application of intermittent pneumatic compression device [facility] Start: 05-18-2025 Bacterial nucleic acid assay [facility] Start: 05-18-2025 Assessment of risk of venous thromboembolism [facility] Start: 05-18-2025 Care regimes management [facility] Start: 05-18-2025 Consultation [facility] Start: 05-18-2025 Consultation for treatment [facility] Start: 05-18-2025 Elevation of affected extremity [facility] Start: 05-18-2025 Fall prevention [facility] Start: 05-18-2025 Incentive spirometry [facility] Start: 05-18-2025 Inhalation therapy procedure [facility] Start: 05-18-2025 Insertion of catheter into peripheral vein [facility] Start: 05-18-2025 Introduction of urinary catheter [facility] Start: 05-18-2025 Measuring intake and output [facility] Start: 05-18-2025 Notification of physician [facility] Start: 05-18-2025 Oxygen therapy [facility] Start: 05-18-2025 Patient referral to dietitian [facility] Start: 05-18-2025 Providing care according to standard [facility] Start: 05-18-2025 Provision of activity privileges [facility] Start: 05-18-2025 Referral to occupational therapist [facility] Start: 05-18-2025 Referral to technician submarine cable equipment [facility] Start: 05-18-2025 Referral to service [facility] Start: 05-18-2025 Referral to vascular surgeon [facility] Start: 05-18-2025 Wound care [facility] Start: 05-18-2025 Following clinical pathway protocol [facility] Start: 05-18-2025 Serum inorganic phosphate measurement [facility] Start: 05-18-2025 Verification routine [facility] Start: 05-18-2025 Admission procedure [facility] Start: 05-18-2025 Hospital admission, emergency, from emergency room, medical nature [facility] Start: 05-18-2025 [facility] Start: 05-17-2025 End: 05-17-2025 [facility] Start: 05-17-2025 Blood culture [facility] Start: 04-15-2025 Patient discharge [facility] Start: 04-02-2025 Diabetic foot examination Diabetic Foot Exam [facility] Start: 03-27-2025 End: 03-27-2025 Patient encounter procedure 03/27/2025 10:00 AM EDT Office Visit [facility] [address] [facility] [place] [address] [employer]logarYumiko APRN.RAIL CAR REPAIRER [address] [facility] [place] [address] Discharged 03/20/25 [facility] - Adult failure to thrive, falls, rabdo (no availability within recommended one week F/U with PCP dyad) [facility] Comment on above: Discharged 03/20/25 [facility] - Adult failure to thrive, falls, rabdo (no availability within recommended one week F/U with PCP dyad) Start: 03-20-2025 Patient discharge [facility] Start: 03-19-2025 Developing a treatment plan [facility] Start: 03-19-2025 Development of care plan [facility] Start: 03-19-2025 End: 03-19-2025 [facility] Start: 03-19-2025 End: 03-19-2025 Administration of blood product [facility] Start: 03-18-2025 Referral to service [facility] Start: 03-17-2025 [facility] Start: 03-12-2025 Application of intermittent pneumatic compression device [facility] Start: 03-12-2025 Development of care plan [facility] Start: 03-12-2025 Developing a treatment plan [facility] Start: 03-11-2025 Consultation [facility] Start: 03-11-2025 Referral to technician submarine cable equipment [facility] Start: 03-11-2025 Referral to vascular surgeon [facility] Start: 03-11-2025 Contact precautions [facility] Start: 03-11-2025 Wound care [facility] Start: 03-11-2025 Admission procedure [facility] Start: 03-11-2025 Introduction of urinary catheter [facility] Start: 03-11-2025 Measuring intake and output [facility] Start: 03-11-2025 Patient referral to dietitian [facility] Start: 03-11-2025 Referral to occupational therapist [facility] Start: 03-11-2025 Referral to service [facility] Start: 03-11-2025 Vital signs measurements [facility] Start: 03-11-2025 [facility] Start: 03-11-2025 End: 03-11-2025 Consultation for treatment [facility] Start: 03-11-2025 Following clinical pathway protocol [facility] Start: 03-11-2025 Patient discharge [facility] Start: 03-10-2025 Consultation [facility] Start: 03-08-2025 [facility] Start: 03-08-2025 Consultation [facility] [facility] Start: 03-08-2025 Referral to coal getter [facility] Start: 03-08-2025 [facility] Start: 03-08-2025 Referral to vascular surgeon [facility] Start: 03-08-2025 Application of intermittent pneumatic compression device [facility] Start: 03-07-2025 Following clinical pathway protocol [facility] Start: 03-07-2025 Assessment of risk of venous thromboembolism [facility] Start: 03-07-2025 Care regimes management [facility] Start: 03-07-2025 Consultation for treatment [facility] Start: 03-07-2025 Elevation of affected extremity [facility] Start: 03-07-2025 Fall prevention [facility] Start: 03-07-2025 Insertion of catheter into peripheral vein [facility] Start: 03-07-2025 Introduction of urinary catheter [facility] Start: 03-07-2025 Measuring intake and output [facility] Start: 03-07-2025 Notification of physician [facility] Start: 03-07-2025 Patient referral to dietitian [facility] Start: 03-07-2025 Providing care according to standard [facility] Start: 03-07-2025 Provision of activity privileges [facility] Start: 03-07-2025 Referral to occupational therapist [facility] Start: 03-07-2025 Referral to technician submarine cable equipment [facility] Start: 03-07-2025 Referral to service [facility] Start: 03-07-2025 Wound care [facility] Start: 03-07-2025 End: 03-07-2025 [facility] Start: 03-07-2025 Admission procedure [facility] Start: 03-07-2025 Hospital admission, emergency, from emergency room, medical nature [facility] Start: 03-07-2025 End: 03-07-2025 [facility] Start: 03-07-2025 Bacteria identified in Urine by Culture Urine Culture [facility] Start: 03-07-2025 [facility] Start: 02-26-2025 Anaerobic microbial culture Anaerobic Culture [facility] Start: 02-26-2025 Source specific culture [facility] Start: 02-16-2025 [facility] Start: 02-16-2025 Microbial culture, routine Wound Culture [facility] Start: 02-16-2025 Microscopic observation [Identifier] in Unspecified specimen by Gram stain [facility] Start: 02-16-2025 Wound Culture Wound Culture [facility] Start: 12-05-2024 End: 03-06-2025 25-hydroxyvitamin D3 [Mass/volume] in Serum or Plasma VITAMIN D 25 HYDROXY Lab Routine Vitamin D deficiency Expected: 12/05/2024, Expires: 03/06/2025 [facility] Comment on above: Expected: 12/05/2024, Expires: Start: 12-05-2024 Annual PCP Team Chronic Disease Visit Annual PCP Team Chronic Disease Visit [facility] Start: 12-05-2024 End: 03-06-2025 CBC panel - Blood by Automated count COMPLETE BLOOD COUNT Lab Routine Peripheral vascular occlusive disease (HCC) Expected: 12/05/2024, Expires: 03/06/2025 [facility] Comment on above: Expected: 12/05/2024, Expires: Start: 12-05-2024 End: 03-06-2025 Cobalamin (Vitamin B12) [Mass/volume] in Serum or Plasma VITAMIN B12 Lab Routine 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) Expected: 12/05/2024, Expires: 03/06/2025 [facility] Comment on above: Expected: 12/05/2024, Expires: Start: 12-05-2024 End: 03-06-2025 Comprehensive metabolic 2000 panel - Serum or Plasma COMPREHENSIVE METABOLIC PANEL Lab Routine 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) Expected: 12/05/2024, Expires: 03/06/2025 [facility] Comment on above: Expected: 12/05/2024, Expires: Start: 12-05-2024 End: 03-06-2025 Hemoglobin A1c in Blood HEMOGLOBIN A1C Lab Routine 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) Expected: 12/05/2024, Expires: 03/06/2025 [facility] Work Phone: Comment on above: Expected: 12/05/2024, Expires: Start: 12-05-2024 End: 03-06-2025 Lipid 1996 panel - Serum or Plasma LIPID PANEL BASIC Lab Routine Dyslipidemia (high LDL; low HDL) Expected: 12/05/2024, Expires: 03/06/2025 [facility] Comment on above: Expected: 12/05/2024, Expires: Start: 12-05-2024 End: 03-06-2025 Thyrotropin [Units/volume] in Serum or Plasma THYROID STIMULATING HORMONE Lab Routine Multiple thyroid nodules Expected: 12/05/2024, Expires: 03/06/2025 [facility] Comment on above: Expected: 12/05/2024, Expires: Start: 12-05-2024 End: 03-06-2025 Thyroxine (T4) free [Mass/volume] in Serum or Plasma T4 FREE/FREE THYROXINE Lab Routine Multiple thyroid nodules Expected: 12/05/2024, Expires: 03/06/2025 [facility] Comment on above: Expected: 12/05/2024, Expires: Start: 12-05-2024 End: 12-05-2024 Patient encounter procedure 12/05/2024 9:00 AM EST Office Visit [facility] [address] [place] [id number] Rishi Vasquez DO [address] [place] [address] 6 month follow up [facility] Comment on above: 6 month follow up Start: 11-30-2024 Complete blood count Hemoglobin/Hematocrit [facility] Start: 11-30-2024 Creatinine measurement Serum Creatinine [facility] Start: 11-30-2024 Hemoglobin A1c measurement HbA1C [facility] Start: 11-30-2024 Hepatitis B surface antibody level LDL Cholesterol [facility] Start: 11-19-2024 Medicare Advantage Annual Wellness Visit Medicare [facility] Annual Wellness Visit [facility] Start: 11-15-2024 Glaucoma screening Dilated Retinal Exam [facility] Start: 09-05-2024 End: 09-05-2024 Patient encounter procedure 09/05/2024 9:20 AM EDT Immunization [facility] [address] [place] [address] [place], Immunization Clinic Nurse [address] [place] [address] FLU SHOT [facility] Comment on above: FLU SHOT Start: 07-20-2024 Covid-19 Vaccine ( season) Covid-19 Vaccine ( season) [facility] Start: 07-20-2024 Covid-19 Vaccine ( season) Covid-19 Vaccine ( season) [facility] Start: 07-20-2024 Influenza vaccination Influenza Vaccine (#1) [facility] Start: 06-04-2024 3 comp foot exam completed DIABETIC FOOT EXAM [facility] Start: 06-04-2024 ANNUAL PCP TEAM CHRONIC DISEASE VISIT ANNUAL PCP TEAM CHRONIC DISEASE VISIT [facility] Start: 06-04-2024 BP CONTROLLED (<130/80) BP CONTROLLED (<130/80) [facility] Start: 06-04-2024 Diabetic foot examination Diabetic Foot Exam [facility] Start: 06-04-2024 End: 06-04-2024 Patient encounter procedure 06/04/2024 9:40 AM EDT Office Visit [facility] [address] [place] [address] Rishi Vasquez DO [address] [place] [address] 6 month follow up [facility] Comment on above: 6 month follow up Start: 06-03-2024 End: 06-03-2024 Patient encounter procedure 06/03/2024 9:30 AM EDT Appointment Mammogram [address] [place] [address] Encounter for screening mammogram for malignant neoplasm of breast [Z12.31] Mammogram Comment on above: Encounter for screening mammogram for ma lignant neoplasm of breast [Z12.31] Start: 05-30-2024 End: 08-29-2024 25-hydroxyvitamin D3 [Mass/volume] in Serum or Plasma VITAMIN D 25 HYDROXY Lab Routine Vitamin D deficiency Expected: 05/30/2024 (Approximate), Expires: 08/29/2024 [facility] Comment on above: Expected: 05/30/2024 (Approximate), Expi res: 08/29/2024 Start: 05-30-2024 End: 08-29-2024 CBC W Auto Differential panel - Blood COMPLETE BLOOD COUNT AND DIFFERENTIAL Lab Routine Essential hypertension Fatigue, unspecified type Expected: 05/30/2024 (Approximate), Expires: 08/29/2024 [facility] Comment on above: Expected: 05/30/2024 (Approximate), Expi res: 08/29/2024 Start: 05-30-2024 End: 08-29-2024 Comprehensive metabolic 2000 panel - Serum or Plasma COMPREHENSIVE METABOLIC PANEL Lab Routine Essential hypertension 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) CKD stage G3b/A1, GFR 30-44 and albumin creatinine ratio <30 mg/g (HCC) Dyslipidemia (high LDL; low HDL) Expected: 05/30/2024 (Approximate), Expires: 08/29/2024 [facility] Comment on above: Expected: 05/30/2024 (Approximate), Expi res: 08/29/2024 Start: 05-30-2024 End: 08-29-2024 Hemoglobin A1c in Blood HEMOGLOBIN A1C Lab Routine 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) Expected: 05/30/2024 (Approximate), Expires: 08/29/2024 [facility] Comment on above: Expected: 05/30/2024 (Approximate), Expi res: 08/29/2024 Start: 05-30-2024 Hemoglobin A1c measurement HbA1C [facility] Start: 05-30-2024 HEMOGLOBIN/HEMATOCRIT HEMOGLOBIN/HEMATOCRIT [facility] Start: 05-30-2024 Hepatitis B screening URINE ALBUMIN:CREATININE RATIO [facility] Start: 05-30-2024 Hepatitis B surface antibody level LDL CHOLESTEROL [facility] Start: 05-30-2024 End: 08-29-2024 Lipid 1996 panel - Serum or Plasma LIPID PANEL BASIC Lab Routine Essential hypertension 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) Dyslipidemia (high LDL; low HDL) Expected: 05/30/2024 (Approximate), Expires: 08/29/2024 [facility] Work Phone: Comment on above: Expected: 05/30/2024 (Approximate), Expi res: 08/29/2024 Start: 05-30-2024 SERUM CREATININE SERUM CREATININE [facility] Start: 05-30-2024 End: 08-29-2024 Thyrotropin [Units/volume] in Serum or Plasma THYROID STIMULATING HORMONE Lab Routine Multiple thyroid nodules Low TSH level Fatigue, unspecified type Expected: 05/30/2024 (Approximate), Expires: 08/29/2024 [facility] Comment on above: Expected: 05/30/2024 (Approximate), Expi res: 08/29/2024 Start: 05-30-2024 End: 08-29-2024 Thyroxine (T4) free [Mass/volume] in Serum or Plasma T4 FREE/FREE THYROXINE Lab Routine Multiple thyroid nodules Low TSH level Fatigue, unspecified type Expected: 05/30/2024 (Approximate), Expires: 08/29/2024 [facility] Comment on above: Expected: 05/30/2024 (Approximate), Expi res: 08/29/2024 Start: 05-30-2024 End: 08-29-2024 Triiodothyronine (T3) Free [Mass/volume] in Serum or Plasma T3, FREE Lab Routine Multiple thyroid nodules Low TSH level Fatigue, unspecified type Expected: 05/30/2024 (Approximate), Expires: 08/29/2024 [facility] Comment on above: Expected: 05/30/2024 (Approximate), Expi res: 08/29/2024 Start: 05-30-2024 End: 05-30-2024 ambulatory 05/30/2024 8:00 AM EDT Results Only [facility] [address] [place] [address] [facility] Start: 05-29-2024 Mammography [facility] Start: 05-29-2024 Screening for malignant neoplasm of breast Mammogram Screening [facility] Start: 04-16-2024 End: 04-16-2024 ambulatory 04/16/2024 4:45 PM EDT OT/PT/Speech Visit [facility] [address] [place] [address] Anselmo Marr, PT [address] [place] [address] test [facility] Comment on above: test Start: 03-25-2024 End: 03-25-2024 ambulatory 03/25/2024 9:30 AM EDT OT/PT/Speech Visit [facility] [address] [place] [address] Keisha Guzman, [employer] [address] [place] [address] M54.50,G89.29 (ICD-10-CM) - Chronic midline low back pain without sciatica [facility] Comment on above: M54.50,G89.29 (ICD-10-CM) - Chronic midl ine low back pain without sciatica Start: 03-20-2024 End: 03-20-2024 ambulatory 03/20/2024 10:00 AM EDT OT/PT/Speech Visit [facility] [address] [place] [address] Anselmo Marr, PT [address] [place] [address] M54.50,G89.29 (ICD-10-CM) - Chronic midline low back pain without sciatica [facility] Comment on above: M54.50,G89.29 (ICD-10-CM) - Chronic midl ine low back pain without sciatica Start: 12-14-2023 HEMOGLOBIN/HEMATOCRIT HEMOGLOBIN/HEMATOCRIT [facility] Start: 12-14-2023 SERUM CREATININE SERUM CREATININE [facility] Start: 12-05-2023 ANNUAL PCP TEAM CHRONIC DISEASE VISIT ANNUAL PCP TEAM CHRONIC DISEASE VISIT [facility] Start: 12-05-2023 BP CONTROLLED (<130/80) BP CONTROLLED (<130/80) [facility] Start: 11-30-2023 Hemoglobin A1c/Hemoglobin.total in Blood HBA1C [facility] Start: 08-31-2023 HEMOGLOBIN/HEMATOCRIT HEMOGLOBIN/HEMATOCRIT [facility] Start: 08-31-2023 Hepatitis B surface antibody level LDL CHOLESTEROL [facility] Start: 08-31-2023 SERUM CREATININE SERUM CREATININE [facility] Start: 08-16-2023 Anaerobic Culture Anaerobic Culture [facility] Start: 07-20-2023 Covid-19 Vaccine () Covid-19 Vaccine () [facility] Start: 07-20-2023 Influenza vaccination [facility] Start: 06-13-2023 Hemoglobin A1c/Hemoglobin.total in Blood HBA1C [facility] Start: 06-05-2023 Mammography MAMMOGRAM [facility] Start: 06-04-2023 End: 08-04-2023 Bacteria identified in Urine by Culture [facility] Work Phone: Comment on above: Expected: 06/04/2023, Expires: 3 Start: 05-31-2023 ANNUAL PCP TEAM CHRONIC DISEASE VISIT ANNUAL PCP TEAM CHRONIC DISEASE VISIT [facility] Start: 05-31-2023 BP CONTROLLED (<130/80) BP CONTROLLED (<130/80) [facility] Start: 05-16-2023 3 comp foot exam completed DIABETIC FOOT EXAM [facility] Start: 05-08-2023 Hepatitis C antibody, confirmatory test DILATED RETINAL EXAM [facility] Start: 04-24-2023 Urine microalbumin profile [facility] Start: 03-07-2023 SERUM CREATININE SERUM CREATININE [facility] Start: 03-01-2023 Hemoglobin A1c/Hemoglobin.total in Blood HBA1C [facility] Start: 02-27-2023 End: 04-29-2023 ALBUMIN/CREAT RATIO RND UR ALBUMIN/CREAT RATIO RND UR Lab Routine 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) Expected: 02/27/2023, Expires: 04/29/2023 [facility] Work Phone: Comment on above: Expected: 02/27/2023, Expires: 3 Start: 02-23-2023 HEMOGLOBIN/HEMATOCRIT HEMOGLOBIN/HEMATOCRIT [facility] Start: 02-23-2023 Hepatitis B surface antibody level LDL CHOLESTEROL [facility] Start: 12-05-2022 End: 02-04-2023 CBC W Auto Differential panel - Blood CBC + DIFF Lab Routine Dizziness Biceps rupture, proximal, left, initial encounter Expected: 12/05/2022, Expires: 02/04/2023 [facility] Work Phone: Comment on above: Expected: 12/05/2022, Expires: 3 Start: 12-05-2022 End: 02-04-2023 Comprehensive metabolic 2000 panel - Serum or Plasma COMP METABOLIC PANEL Lab Routine Dizziness Biceps rupture, proximal, left, initial encounter Expected: 12/05/2022, Expires: 02/04/2023 [facility] Work Phone: Comment on above: Expected: 12/05/2022, Expires: 3 Start: 12-05-2022 End: 02-04-2023 Creatine kinase [Enzymatic activity/volume] in Serum or Plasma CK CREATINE KINASE Lab Routine Dizziness Biceps rupture, proximal, left, initial encounter Expected: 12/05/2022, Expires: 02/04/2023 [facility] Work Phone: Comment on above: Expected: 12/05/2022, Expires: 3 Start: 12-05-2022 End: 02-04-2023 Hemoglobin A1c in Blood HGB A1C Lab Routine 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) Expected: 12/05/2022, Expires: 02/04/2023 [facility] Work Phone: Comment on above: Expected: 12/05/2022, Expires: 3 Start: 12-05-2022 End: 02-04-2023 Magnesium [Mass/volume] in Serum or Plasma MAGNESIUM BLD Lab Routine Dizziness Biceps rupture, proximal, left, initial encounter Expected: 12/05/2022, Expires: 02/04/2023 [facility] Work Phone: Comment on above: Expected: 12/05/2022, Expires: 3 Start: 12-05-2022 End: 02-04-2023 Thyrotropin [Units/volume] in Serum or Plasma TSH BLD Lab Routine Dizziness Expected: 12/05/2022, Expires: 02/04/2023 [facility] Work Phone: Comment on above: Expected: 12/05/2022, Expires: 3 Start: 12-05-2022 End: 02-04-2023 Thyroxine (T4) free [Mass/volume] in Serum or Plasma T4 FREE/FREE THYROX Lab Routine Dizziness Expected: 12/05/2022, Expires: 02/04/2023 [facility] Work Phone: Comment on above: Expected: 12/05/2022, Expires: 3 Start: 12-02-2022 ANNUAL PCP TEAM CHRONIC DISEASE VISIT ANNUAL PCP TEAM CHRONIC DISEASE VISIT [facility] Start: 12-01-2022 Hemoglobin A1c/Hemoglobin.total in Blood HBA1C [facility] Start: 11-28-2022 Hepatitis B screening URINE ALBUMIN:CREATININE RATIO [facility] Start: 10-07-2022 End: 12-07-2022 Thyrotropin [Units/volume] in Serum or Plasma TSH BLD Lab Routine Low TSH level Abnormal thyroid blood test Borderline abnormal thyroid function test Expected: 10/07/2022, Expires: 12/07/2022 [facility] Work Phone: Comment on above: Expected: 10/07/2022, Expires: 3 Start: 10-07-2022 End: 12-07-2022 Thyroxine (T4) free [Mass/volume] in Serum or Plasma T4 FREE/FREE THYROX Lab Routine Low TSH level Abnormal thyroid blood test Borderline abnormal thyroid function test Expected: 10/07/2022, Expires: 12/07/2022 [facility] Work Phone: Comment on above: Expected: 10/07/2022, Expires: 3 Start: 10-07-2022 End: 12-07-2022 Triiodothyronine (T3) Free [Mass/volume] in Serum or Plasma T3 FREE BLD Lab Routine Low TSH level Abnormal thyroid blood test Borderline abnormal thyroid function test Expected: 10/07/2022, Expires: 12/07/2022 [facility] Work Phone: Comment on above: Expected: 10/07/2022, Expires: 3 Start: 08-31-2022 End: 10-31-2022 25-hydroxyvitamin D3 [Mass/volume] in Serum or Plasma VITAMIN D 25 HYDROXY Lab Routine Vitamin D deficiency Expected: 08/31/2022, Expires: 10/31/2022 [facility] Work Phone: Comment on above: Expected: 08/31/2022, Expires: 2 Start: 08-31-2022 End: 10-31-2022 CBC panel - Blood by Automated count CBC Lab Routine 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) Stage 3 chronic kidney disease, unspecified whether stage 3a or 3b CKD (HCC) Essential hypertension Dyslipidemia (high LDL; low HDL) Expected: 08/31/2022, Expires: 10/31/2022 [facility] Work Phone: Comment on above: Expected: 08/31/2022, Expires: 2 Start: 08-31-2022 End: 10-31-2022 Cobalamin (Vitamin B12) [Mass/volume] in Serum or Plasma VITAMIN B12 BLOOD Lab Routine 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) Expected: 08/31/2022, Expires: 10/31/2022 [facility] Work Phone: Comment on above: Expected: 08/31/2022, Expires: 2 Start: 08-31-2022 End: 10-31-2022 Comprehensive metabolic 2000 panel - Serum or Plasma COMP METABOLIC PANEL Lab Routine 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) Expected: 08/31/2022, Expires: 10/31/2022 [facility] Work Phone: Comment on above: Expected: 08/31/2022, Expires: 2 Start: 08-31-2022 End: 10-31-2022 Hemoglobin A1c in Blood HGB A1C Lab Routine 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) Expected: 08/31/2022, Expires: 10/31/2022 [facility] Work Phone: Comment on above: Expected: 08/31/2022, Expires: 2 Start: 08-31-2022 End: 10-31-2022 Lipid 1996 panel - Serum or Plasma LIPID PANEL BASIC Lab Routine Dyslipidemia (high LDL; low HDL) Expected: 08/31/2022, Expires: 10/31/2022 [facility] Work Phone: Comment on above: Expected: 08/31/2022, Expires: 2 Start: 08-31-2022 End: 10-31-2022 Thyrotropin [Units/volume] in Serum or Plasma TSH BLD Lab Routine 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) Stage 3 chronic kidney disease, unspecified whether stage 3a or 3b CKD (HCC) Fatigue, unspecified type Expected: 08/31/2022, Expires: 10/31/2022 [facility] Work Phone: Comment on above: Expected: 08/31/2022, Expires: 2 Start: 08-25-2022 Hemoglobin A1c/Hemoglobin.total in Blood HBA1C [facility] Start: 07-20-2022 Influenza vaccination INFLUENZA (#1) [facility] Start: 07-14-2022 BP CONTROLLED (<130/80) BP CONTROLLED (<130/80) [facility] Start: 06-10-2022 Mammography MAMMOGRAM [facility] Start: 05-30-2022 3 comp foot exam completed DIABETIC FOOT EXAM [facility] Start: 04-26-2022 COVID-19 VACCINE (3 - Booster for Kellee series) COVID-19 VACCINE (3 - Booster for Kellee series) [facility] Start: 03-30-2022 Hepatitis C antibody, confirmatory test DILATED RETINAL EXAM [facility] Start: 02-21-2022 COVID-19 VACCINE (3 - Booster for Kellee series) COVID-19 VACCINE (3 - Booster for Kellee series) [facility] Start: 01-20-2022 Colonoscopy flx dx w/collj spec when pfrmd DIAGNOSTIC COLONOSCOPY [facility] Work Phone: Start: 11-19-2021 ADVANCE DIRECTIVE DISCUSSION ADVANCE DIRECTIVE DISCUSSION [facility] Start: 12-17-2017 End: 12-17-2017 Appointment Appointment [facility] Work Phone: Start: 08-30-2017 End: 08-30-2017 Appointment Appointment [facility] Work Phone: Start: 06-11-2017 End: 06-11-2017 ISAC CHAU [facility] [employer] Work Phone: Start: 06-11-2017 End: 06-11-2017 Follow Up Appt 6 months Follow Up Appt 6 months [facility] [employer] Work Phone: Start: 06-11-2017 End: 06-11-2017 Appointment Appointment [facility] Work Phone: Start: 06-11-2017 End: 06-11-2017 ISAC CHAU [facility] Work Phone: Start: 06-11-2017 End: 06-11-2017 Follow Up Appt 6 months Follow Up Appt 6 months [facility] Work Phone: Start: 06-04-2017 End: 06-04-2017 Appointment Appointment [facility] Work Phone: Start: 05-04-2017 End: 05-04-2017 Thyroid stimulating hormone (TSH) *TSH [facility] [employer] Work Phone: Start: 05-04-2017 End: 05-04-2017 Thyroxine (T4) free *T4 free [facility] [employer] Work Phone: Start: 05-04-2017 End: 05-04-2017 Triiodothyronine (T3) free *T3-Free [facility] Work Phone: Start: 05-04-2017 End: 05-04-2017 Thyroid stimulating hormone (TSH) *TSH [facility] Work Phone: Start: 05-04-2017 End: 05-04-2017 Thyroxine (T4) free *T4 free [facility] Work Phone: Start: 05-04-2017 End: 05-04-2017 Triiodothyronine (T3) free *T3-Free [facility] Work Phone: Start: 05-02-2017 End: 05-02-2017 *BMP *BMP [facility] Work Phone: Start: 05-02-2017 End: 05-02-2017 *CBC with Differential *CBC with Differential [facility] Work Phone: Start: 05-02-2017 End: 05-02-2017 Appointment Appointment [facility] Work Phone: Start: 05-02-2017 End: 05-02-2017 *BMP *BMP [facility] Work Phone: Start: 05-02-2017 End: 05-02-2017 *CBC with Differential *CBC with Differential [facility] Work Phone: Start: 04-23-2017 End: 04-23-2017 C reactive protein (hsCRP) *CRP - C-Reative Protein [facility] Work Phone: Start: 04-23-2017 End: 04-23-2017 Erythrocyte sedimentation rate *Sedimentation Rate (ESR) [facility] Work Phone: Start: 04-23-2017 End: 04-23-2017 C reactive protein (hsCRP) *CRP - C-Reative Protein [facility] Work Phone: Start: 04-23-2017 End: 04-23-2017 Erythrocyte sedimentation rate *Sedimentation Rate (ESR) [facility] Work Phone: Start: 02-19-2017 End: 02-21-2017 C reactive protein (hsCRP) *CRP - C-Reative Protein [facility] Work Phone: Start: 02-19-2017 End: 02-21-2017 Erythrocyte sedimentation rate *Sedimentation Rate (ESR) [facility] Work Phone: Start: 02-19-2017 End: 02-21-2017 C reactive protein (hsCRP) *CRP - C-Reative Protein [facility] Work Phone: Start: 02-19-2017 End: 02-21-2017 Erythrocyte sedimentation rate *Sedimentation Rate (ESR) [facility] Work Phone: Start: 02-06-2017 End: 02-07-2017 Thyroid stimulating hormone (TSH) *TSH [facility] Work Phone: Start: 02-06-2017 End: 02-08-2017 Thyroperoxidase antibody *TPO Thyroid Peroxidase Antibodies [facility] Work Phone: Start: 02-06-2017 End: 02-07-2017 Thyroxine (T4) free *T4 free [facility] Work Phone: Start: 02-06-2017 End: 02-07-2017 Triiodothyronine (T3) free *T3-Free [facility] Work Phone: Start: 02-06-2017 End: 02-07-2017 Thyroid stimulating hormone (TSH) *TSH [facility] Work Phone: Start: 02-06-2017 End: 02-08-2017 Thyroperoxidase antibody *TPO Thyroid Peroxidase Antibodies [facility] Work Phone: Start: 02-06-2017 End: 02-07-2017 Thyroxine (T4) free *T4 free [facility] Work Phone: Start: 02-06-2017 End: 02-07-2017 Triiodothyronine (T3) free *T3-Free [facility] Work Phone: Start: 01-24-2017 End: 01-24-2017 Bacterica wound culture *Culture and Sensitivity, wound [facility] Work Phone: Start: 01-24-2017 End: 01-24-2017 Bacterica wound culture *Culture and Sensitivity, wound [facility] Work Phone: Start: 01-08-2017 End: 01-15-2017 *BMP *BMP [facility] Work Phone: Start: 01-08-2017 End: 01-15-2017 *CBC with Differential *CBC with Differential [facility] Work Phone: Start: 01-08-2017 End: 01-15-2017 C reactive protein (hsCRP) *CRP - C-Reative Protein [facility] Work Phone: Start: 01-08-2017 End: 01-15-2017 Erythrocyte sedimentation rate *Sedimentation Rate (ESR) [facility] Work Phone: Start: 01-08-2017 End: 01-15-2017 Mri lower extrem oth/thn jt w/o contr matrl MRI Non Joint Lower Extremity w/o [facility] Work Phone: Start: 01-08-2017 End: 01-15-2017 *BMP *BMP [facility] Work Phone: Start: 01-08-2017 End: 01-15-2017 *CBC with Differential *CBC with Differential [facility] Work Phone: Start: 01-08-2017 End: 01-15-2017 C reactive protein (hsCRP) *CRP - C-Reative Protein [facility] Work Phone: Start: 01-08-2017 End: 01-15-2017 Erythrocyte sedimentation rate *Sedimentation Rate (ESR) [facility] Work Phone: Start: 01-08-2017 End: 01-15-2017 Mri lower extremity w/o dye MRI Non Joint Lower Extremity w/o [facility] Work Phone: Start: 01-04-2017 End: 01-04-2017 *CBC with Differential *CBC with Differential [facility] Work Phone: Start: 01-04-2017 End: 01-04-2017 Bacterica wound culture *Culture and Sensitivity, wound [facility] Work Phone: Start: 01-04-2017 End: 01-04-2017 C reactive protein (hsCRP) *CRP - C-Reative Protein [facility] Work Phone: Start: 01-04-2017 End: 01-04-2017 Erythrocyte sedimentation rate *Sedimentation Rate (ESR) [facility] Work Phone: Start: 01-04-2017 End: 01-04-2017 MRSA presence *MRSAD - M R Staph Aureus DNA by PCR [facility] Work Phone: Start: 01-04-2017 End: 01-04-2017 Radex foot complete minimum 3 views X-Ray, Foot [facility] Work Phone: Start: 01-04-2017 End: 01-04-2017 *CBC with Differential *CBC with Differential [facility] Work Phone: Start: 01-04-2017 End: 01-04-2017 Bacterica wound culture *Culture and Sensitivity, wound [facility] Work Phone: Start: 01-04-2017 End: 01-04-2017 C reactive protein (hsCRP) *CRP - C-Reative Protein [facility] Work Phone: Start: 01-04-2017 End: 01-04-2017 Erythrocyte sedimentation rate *Sedimentation Rate (ESR) [facility] Work Phone: Start: 01-04-2017 End: 01-04-2017 MRSA presence *MRSAD - M R Staph Aureus DNA by PCR [facility] Work Phone: Start: 01-04-2017 End: 01-04-2017 X-ray exam of foot X-Ray, Foot [facility] Work Phone: Start: 01-01-2017 End: 01-02-2017 *CBC with Differential *CBC with Differential [facility] Work Phone: Start: 01-01-2017 End: 01-02-2017 C reactive protein (hsCRP) *CRP - C-Reative Protein [facility] [employer] Work Phone: Start: 01-01-2017 End: 01-02-2017 Erythrocyte sedimentation rate *Sedimentation Rate (ESR) [facility] Work Phone: Start: 01-01-2017 End: 01-02-2017 *CBC with Differential *CBC with Differential [facility] Work Phone: Start: 01-01-2017 End: 01-02-2017 C reactive protein (hsCRP) *CRP - C-Reative Protein [facility] Work Phone: Start: 01-01-2017 End: 01-02-2017 Erythrocyte sedimentation rate *Sedimentation Rate (ESR) [facility] Work Phone: Start: 12-20-2016 End: 12-20-2016 Radex foot complete minimum 3 views X-Ray, Foot [facility] Work Phone: Start: 12-20-2016 End: 12-20-2016 X-ray exam of foot X-Ray, Foot [facility] Work Phone: Start: 12-18-2016 End: 12-20-2016 *CDIF - Clostridium Diff. Toxin Stool *CDIF - Clostridium Diff. Toxin Stool [facility] Work Phone: Start: 12-18-2016 End: 12-20-2016 *CDIF - Clostridium Diff. Toxin Stool *CDIF - Clostridium Diff. Toxin Stool [facility] Work Phone: Start: 12-13-2016 End: 12-15-2016 Radex foot complete minimum 3 views X-Ray, Foot [facility] Work Phone: Start: 12-13-2016 End: 12-15-2016 X-ray exam of foot X-Ray, Foot [facility] Work Phone: Start: 12-05-2016 End: 12-05-2016 DJN DJN [facility] Work Phone: Start: 12-05-2016 End: 12-05-2016 Follow Up Appt 6 months Follow Up Appt 6 months [facility] Work Phone: Start: 12-05-2016 End: 12-05-2016 DJN DJN [facility] Work Phone: Start: 12-05-2016 End: 12-05-2016 Follow Up Appt 6 months Follow Up Appt 6 months [facility] Work Phone: Start: 11-22-2016 End: 11-23-2016 *IGSUB IMMUN Subclas-IGG1,2,3 &4 *IGSUB IMMUN Subclas-IGG1,2,3 &4 [facility] Work Phone: Start: 11-22-2016 End: 11-29-2016 Debridement subcutaneous tissue 20 sq cm/< Debridement, subcutaneous tissue first 20 sq cm or less [facility] Work Phone: Start: 11-22-2016 End: 11-23-2016 *IGSUB IMMUN Subclas-IGG1,2,3 &4 *IGSUB IMMUN Subclas-IGG1,2,3 &4 [facility] Work Phone: Start: 11-22-2016 End: 11-29-2016 Dalila subq tissue 20 sq cm/< Debridement, subcutaneous tissue first 20 sq cm or less [facility] Work Phone: Start: 09-22-2016 End: 09-29-2016 Debridement subcutaneous tissue 20 sq cm/< Debridement, subcutaneous tissue first 20 sq cm or less [facility] Work Phone: Start: 09-22-2016 End: 09-29-2016 Dalila subq tissue 20 sq cm/< Debridement, subcutaneous tissue first 20 sq cm or less [facility] Work Phone: Start: 11-30-2015 End: 11-30-2015 DJN DJN [facility] Work Phone: Start: 11-30-2015 End: 11-30-2015 Follow Up Appt 1 year Follow Up Appt 1 year [facility] Work Phone: Start: 11-30-2015 End: 11-30-2015 DJN DJN [facility] Work Phone: Start: 11-30-2015 End: 11-30-2015 Follow Up Appt 1 year Follow Up Appt 1 year [facility] Work Phone: Start: 05-25-2015 End: 05-25-2015 DJN DJN [facility] Work Phone: Start: 05-25-2015 End: 05-25-2015 Ecg routine ecg w/least 12 lds w/i&r EKG (In office) [facility] Work Phone: Start: 05-25-2015 End: 05-25-2015 Follow Up Appt 6 months Follow Up Appt 6 months [facility] Work Phone: Start: 05-25-2015 End: 05-25-2015 ISAC CHAU [facility] Work Phone: Start: 05-25-2015 End: 05-25-2015 Electrocardiogram, complete EKG (In office) [facility] Work Phone: Start: 05-25-2015 End: 05-25-2015 Follow Up Appt 6 months Follow Up Appt 6 months [facility] Work Phone: Start: 01-04-2015 End: 01-04-2015 Vascular Surgery Vascular Surgery Kwaku Moscoso, [address], [address], [place], [address] [facility] Work Phone: Start: 01-04-2015 End: 01-04-2015 Vascular Surgery Vascular Surgery Kwaku Moscoso, [facility], [address] [place], [address] [facility] Work Phone: Start: 12-29-2014 End: 05-19-2015 *BMP *BMP [facility] Work Phone: Start: 12-29-2014 End: 12-29-2014 Ct angiography neck w/contrast/noncontrast CTA Neck [facility] Work Phone: Start: 12-29-2014 End: 12-29-2014 ISAC CHAU [facility] Work Phone: Start: 12-29-2014 End: 12-29-2014 Follow Up Appt 6 months Follow Up Appt 6 months [facility] [employer] Work Phone: Start: 12-29-2014 End: 05-19-2015 *BMP *BMP [facility] Work Phone: Start: 12-29-2014 End: 12-29-2014 Ct angiography, neck CTA Neck [facility] Work Phone: Start: 12-29-2014 End: 12-29-2014 ISAC CHAU [facility] Work Phone: Start: 12-29-2014 End: 12-29-2014 Follow Up Appt 6 months Follow Up Appt 6 months [facility] Work Phone: Start: 06-12-2014 End: 06-12-2014 24 hour holter monitor 24 hour holter monitor [facility] Work Phone: Start: 06-12-2014 End: 06-15-2014 Carotid duplex Carotid duplex [facility] Work Phone: Start: 06-12-2014 End: 06-12-2014 Follow Up Appt Other Follow Up Appt Other [facility] Work Phone: Start: 06-12-2014 End: 06-12-2014 24 hour holter monitor 24 hour holter monitor [facility] Work Phone: Start: 06-12-2014 End: 06-15-2014 Carotid duplex Carotid duplex [facility] Work Phone: Start: 06-12-2014 End: 06-12-2014 Follow Up Appt Other Follow Up Appt Other [facility] Work Phone: Start: 02-02-2014 End: 02-02-2014 Cardiac Rehab Cardiac Rehab [facility] Work Phone: Start: 02-02-2014 End: 02-02-2014 ISAC CHAU [facility] Work Phone: Start: 02-02-2014 End: 02-02-2014 Follow Up Appt 1 year Follow Up Appt 1 year [facility] Work Phone: Start: 02-02-2014 End: 02-02-2014 Cardiac Rehab Cardiac Rehab [facility] Work Phone: Start: 02-02-2014 End: 02-02-2014 ISAC CHAU [facility] Work Phone: Start: 02-02-2014 End: 02-02-2014 Follow Up Appt 1 year Follow Up Appt 1 year [facility] Work Phone: Start: 01-12-2014 End: 01-12-2014 *BMP *BMP [facility] Work Phone: Start: 01-12-2014 End: 01-12-2014 CBC W Auto Differential panel - Blood *CBC without Diff [facility] [employer] Work Phone: Start: 01-12-2014 End: 01-23-2014 Chest x-ray X-Ray, Chest, PA & Lateral [facility] [employer] Work Phone: Start: 01-12-2014 End: 01-12-2014 ISAC CHAU [facility] [employer] Work Phone: Start: 01-12-2014 End: 01-12-2014 Follow Up Appt 1 year Follow Up Appt 1 year [facility] [employer] Work Phone: Start: 01-12-2014 End: 01-12-2014 INR Coag RelTime (PPP) *PT/INR [facility] [employer] Work Phone: Start: 01-12-2014 End: 01-12-2014 Left Heart Cath Left Heart Cath [facility] Work Phone: Start: 01-12-2014 End: 01-12-2014 *BMP *BMP [facility] Work Phone: Start: 01-12-2014 End: 01-12-2014 CBC W Auto Differential panel - Blood *CBC without Diff [facility] Work Phone: Start: 01-12-2014 End: 01-23-2014 Chest x-ray X-Ray, Chest, PA & Lateral [facility] Work Phone: Start: 01-12-2014 End: 01-12-2014 Coagulation factor induced.INR assay in platelet poor plasma *PT/INR [facility] Work Phone: Start: 01-12-2014 End: 01-12-2014 DJN DJN [facility] Work Phone: Start: 01-12-2014 End: 01-12-2014 Follow Up Appt 1 year Follow Up Appt 1 year [facility] Work Phone: Start: 01-12-2014 End: 01-12-2014 Left Heart Cath Left Heart Cath [facility] Work Phone: Start: 2012 Hepatitis B Vaccine (1 of 3 - Risk 3-dose series) Hepatitis B Vaccine (1 of 3 - Risk 3-dose series) [facility] Start: 2012 RSV Vaccine (1 - 1-dose 60+ series) RSV Vaccine (1 - 1-dose 60+ series) [facility] Start: 2002 Influenza vaccination LUNG CANCER SCREENING [facility] Start: 2002 Screening for malignant neoplasm of lung Lung Cancer Screening [facility] Start: 2002 SHINGRIX VACCINE (1 of 2) SHINGRIX VACCINE (1 of 2) [facility] Start: 1997 COLOGUARD (FIT-DNA) COLOGUARD (FIT-DNA) [facility] Start: [address] COLONOGRAPHY [facility] Start: 1997 FECAL OCCULT BLOOD FECAL OCCULT BLOOD [facility] Start: 1997 Screening for malignant neoplasm of colon [facility] Start: 1997 SIGMOIDOSCOPY SIGMOIDOSCOPY [facility] Start: 1970 Anxiety Screening Anxiety Screening [facility] Alanine aminotransfe rase [Enzymatic activity/volume] in Serum or Plasma [facility] Albumin [Mass/volume ] in Serum or Plasma [facility] Alkaline phosphatase [Enzymatic activity/volume] in Serum or Plasma [facility] Anion gap in Serum o r Plasma [facility] Bacteria identified in Unspecified specimen by Anaerobe culture [facility] Bacteria identified in Unspecified specimen by Anaerobe culture [facility] Bacteria identified in Urine by Culture URINE CULTURE Microbiology Routine Acute cystitis with hematuria Ordered: 09/23/2022 [facility] Work Phone: Comment on above: Ordered: 09/23/2022 Bilirubin, total measurement [facility] BUN/Creatinine ratio [facility] Calcium [Mass/volume ] in Serum or Plasma [facility] Carbon dioxide, tota l [Moles/volume] in Central venous blood [facility] Creatinine [Mass/vol ume] in Serum or Plasma [facility] DBT Breast - bilater al screening ALEJANDRO SCREENING W BEN Radiology Routine Encounter for screening mammogram for malignant neoplasm of breast 06/03/2024 9:42 AM EDT [facility] Work Phone: End: 01-04-2026 DBT Breast - bilateral screening ALEJANDRO SCREENING W BEN Radiology Routine Encounter for screening mammogram for malignant neoplasm of breast 1 Occurrences starting 12/05/2024 until 01/04/2026 [facility] Work Phone: Comment on above: 1 Occurrences starting 12/05/2024 until 01/04/2026 End: 07-05-2023 Diagnostic mammography computer-aided detcj uni ALEJANDRO DIAGNOSTIC RT Radiology Routine Abnormal mammogram 1 Occurrences starting 06/05/2022 until 07/05/2023 [facility] Work Phone: Comment on above: 1 Occurrences starting 06/05/2022 until 07/05/2023 Erythrocyte mean corpuscular volume determination [facility] Fungus identified in Unspecified specimen by Culture [facility] Fungus identified in Unspecified specimen by Fungus stain [facility] Glucose [Mass/volume ] in Serum or Plasma [facility] Hematocrit [Volume Fraction] of Blood [facility] Hemoglobin [Mass/vol ume] in Blood [facility] Leukocytes [#/volume ] in Blood [facility] Magnesium measurement [facility] Magnesium measurement [facility] End: 06-27-2024 ALEJANDRO DIAGNOSTIC RIGHT ALEJANDRO DIAGNOSTIC RIGHT Radiology Routine Abnormal mammogram 1 Occurrences starting 05/29/2023 until 06/27/2024 [facility] Work Phone: Comment on above: 1 Occurrences starting 05/29/2023 until 06/27/2024 End: 03-06-2024 ALEJANDRO SCREENING ALEJANDRO SCREENING Radiology Routine Encounter for screening mammogram for malignant neoplasm of breast 1 Occurrences starting 02/07/2023 until 03/06/2024 [facility] Work Phone: Comment on above: 1 Occurrences starting 02/07/2023 until 03/06/2024 Mean corpuscular hemoglobin concentration determination [facility] Mean corpuscular hemoglobin determination [facility] Measurement of renal function [facility] Neutrophil count [facility] Neutrophil percent differential count [facility] NM Heart Views W str ess and W radionuclide IV [facility] Patient Education [facility] Work Phone: Patient referral [facility] Work Phone: Platelets [#/volume] in Blood [facility] Potassium measurement [facility] Red blood cell count [facility] Red cell distributio n width determination [facility] Serum chloride measurement [facility] Sodium measurement [facility] Total protein measurement [facility] Urea nitrogen [Mass/volume] in Serum or Plasma [facility] Urine culture [facility] Urine culture [facility] End: 06-27-2024 US BREAST LTD RIGHT US BREAST LTD RIGHT Radiology Routine Abnormal mammogram 1 Occurrences starting 05/29/2023 until 06/27/2024 [facility] Work Phone: Comment on above: 1 Occurrences starting 05/29/2023 until 06/27/2024 End: 07-05-2023 Us breast uni real time with image limited US BREAST LTD RT Radiology Routine Abnormal mammogram 1 Occurrences starting 06/05/2022 until 07/05/2023 [facility] Work Phone: Comment on above: 1 Occurrences starting 06/05/2022 until 07/05/2023 US Carotid arteries [facility] Work Phone: US Carotid arteries [facility] US Carotid arteries [facility] US Carotid arteries [facility] End: 12-05-2023 US CAROTID ARTERIES [facility] US CAROTID ARTERIES [facility] Lab Routine Carotid atherosclerosis, bilateral 1 Occurrences starting 12/05/2022 until 12/05/2023 [facility] Work Phone: Comment on above: 1 Occurrences starting 12/05/2022 until 12/05/2023 US Heart [facility] Us soft tissue head & neck real time imge docm US THYROID/PARATHYROID Radiology Routine Multiple thyroid nodules 12/20/2023 9:38 AM EST [facility] Work Phone: Wound microscopy, cu lture and sensitivities [facility] Wound microscopy, cu lture and sensitivities [facility] Immunizations Immunization Date Immunization Notes Care Provider Lisa marie 09-05-2024 influenza, high dose seasonal, preservative-free Immunization [facility] Work Phone: [facility] 08-31-2023 influenza (HD-IIV4) vaccine, age 65+ yr, high dose, quadrivalent, PF (FLUZONE HIGH-DOSE) Immunization [facility] Work Phone: [facility] Work Phone: 08-31-2023 influenza virus vaccine, unspecified formulation Rishi Vasquez DO Work Phone: [facility] 06-04-2023 pneumococcal (PCV20) vaccine, 20 valent (PREVNAR 20) Rishi Vasquez DO Work Phone: [facility] Work Phone: 06-04-2023 pneumococcal Conjuga te, unspecified formulation Rishi Vasquez DO Work Phone: [facility] Work Phone: 09-09-2022 influenza, high-dose , quadrivalent vaccine (FLUZONE HIGH DOSE QUADRIVALENT) Immunization [facility] Work Phone: [facility] 09-09-2022 influenza virus vaccine, unspecified formulation Rishi Vasquez DO Work Phone: [facility] 10-23-2021 influenza, high-dose , quadrivalent vaccine (FLUZONE HIGH DOSE QUADRIVALENT) Yani Violeta 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.RAIL CAR REPAIRER Work Phone: [facility] Work Phone: 09-10-2020 influenza, high-dose , quadrivalent vaccine (FLUZONE HIGH DOSE QUADRIVALENT) Yani Violeta 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.RAIL CAR REPAIRER Work Phone: [facility] Work Phone: 09-02-2019 influenza, high dose seasonal, preservative-free Yani Violeta 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.RAIL CAR REPAIRER Work Phone: [facility] Work Phone: 08-28-2018 influenza, high dose seasonal, preservative-free Yani Violeta 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.RAIL CAR REPAIRER Work Phone: [facility] [facility] Work Phone: 08-28-2018 pneumococcal polysaccharide vaccine, 23 valent Yani Violeta 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.RAIL CAR REPAIRER Work Phone: [facility] Work Phone: 09-07-2017 influenza, high dose seasonal, preservative-free Yani Violeta 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.[facility] Work Phone: [facility] Work Phone: 09-01-2016 influenza, injectabl e, quadrivalent, preservative free Dr. Rishi Vasquez Work Phone: [facility] 09-01-2016 influenza, seasonal, injectable Dr. Rishi Vasquez Work Phone: [facility] 09-11-2014 influenza, seasonal, injectable Yani Violeta 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.RAIL CAR REPAIRER Work Phone: [facility] Work Phone: 04-24-2013 tetanus toxoid, redu woody diphtheria toxoid, and acellular pertussis vaccine, adsorbed Yani Violeta 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.RAIL CAR REPAIRER Work Phone: [facility] Work Phone: 01-03-2013 pneumococcal conjuga te vaccine, 13 valent Yani Violeta 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.RAIL CAR REPAIRER Work Phone: [facility] Work Phone: 12-20-2012 pneumococcal polysaccharide vaccine, 23 valent Yani Watts 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.RAIL CAR REPAIRER Work Phone: [facility] Work Phone: Payers Date Payer Category Payer Self-pay [id number] 2022 [place] [id number] 2022 Medicare [id number] 2020 Unknown MMO MMO MEDICARE SUPPLEMENT [id number] 2020-Present [phone] [address] [place] [address] Indemnity [id number]. [id number] 2020 Unknown [id number]. 1.13.159.2. [id number] 2017 Medicare MEDICARE MEDICAR E A AND B [id number] 2017-Present [phone] [place] [address] Medicare [id number]. [id number] 2017 Medicare [id number]. 1.13.159.2. [id number] [facility] [id number] Medicare [id number] Unknown [id number] Unknown [id number] 2.16840.1.907405.3.579.2. 462 Unknown [id number] 2.840.1.635181.3.579.2. 462 Unknown [id number] 2.16840.1.417904.3.579.2. 462 Unknown [id number] 2.840.1.088492.3.579.2. 462 Unknown [id number] 2.840.1.694636.3.579.2. 462 Unknown [id number] 2.840.1.220526.3.579.2. 462 Unknown [id number] 2.16840.1.330818.3.579.2. 462 Unknown [id number] 2.16840.1.339925.3.579.2. 462 Unknown [id number] 2.16840.1.156993.3.579.2. 462 Unknown [id number] 2.16840.1.430284.3.579.2. 462 Unknown [id number] 2.16840.1.853482.3.579.2. 462 Unknown [id number] 2.16840.1.759456.3.579.2. 462 Unknown [id number] 2.16.840.1.228537.3.579.2. 462 Unknown [id number] 2.16840.1.268343.3.579.2. 462 Unknown [id number] 2.16.840.1.079645.3.579.2. 462 Unknown [id number] 2.16.840.1.491799.3.579.2. 462 Unknown [id number] 2.16.840.1.467066.3.579.2. 462 Unknown [id number] 2.16.840.1.304077.3.579.2. 462 Unknown [id number] 2.16.840.1.947573.3.579.2. 462 Unknown [id number] 2.16840.1.276198.3.579.2. 462 Unknown [id number] 2.840.1.843742.3.579.2. 462 Unknown [id number] 2.840.1.962447.3.579.2. 462 Unknown [id number] 2.840.1.715463.3.579.2. 462 Unknown [id number] 2.840.1.077840.3.579.2. 462 Unknown [id number] 2.840.1.535520.3.579.2. 462 Unknown [id number] 2.16840.1.425166.3.579.2. 462 Unknown [id number] 2.840.1.202002.3.579.2. 462 Unknown [id number] 2.840.1.509958.3.579.2. 462 Unknown [id number] 2.16840.1.506300.3.579.2. 462 Unknown [id number] 2.16.840.1.238393.3.579.2. 462 Unknown [id number] 2.16840.1.813921.3.579.2. 462 Unknown [id number] 2.16840.1.333877.3.579.2. 462 Unknown [id number] 2.840.1.067983.3.579.2. 462 Unknown [id number] 2.16.840.1.150429.3.579.2. 462 Unknown [id number] 2.16.840.1.555686.3.579.2. 462 Unknown [id number] 2.16.840.1.189436.3.579.2. 462 Unknown [id number] 2.16.840.1.322931.3.579.2. 462 Unknown [id number] 2.16.840.1.924923.3.579.2. 462 Unknown [id number] 2.16.840.1.463724.3.579.2. 462 Unknown [id number] 2.16.840.1.360856.3.579.2. 462 Unknown [id number] 2.16.840.1.000840.3.579.2. 462 Unknown [id number] 2.16.840.1.145237.3.579.2. 462 Unknown [id number] 2.16.840.1.561977.3.579.2. 462 Unknown [id number] 2.16.840.1.104010.3.579.2. 462 Unknown [id number] 2.16.840.1.427831.3.579.2. 462 Unknown [id number] 2.16.840.1.573104.3.579.2. 462 Unknown [id number] 2.16.840.1.504320.3.579.2. 462 Unknown [id number] 2.16.840.1.194602.3.579.2. 462 Unknown [id number] 2.16.840.1.459549.3.579.2. 462 Unknown [id number] 2.16.840.1.581016.3.579.2. 462 Unknown [id number] 2.16.840.1.326032.3.579.2. 462 Social History Date Type Detail Facility [facility] Work Phone: Start: 02-07-2022 End: 02-12-2024 Tobacco smoking status ORIS Unknown if ever smoked [facility] Start: 03-19-2021 None [facility] Start: 03-19-2021 Alone [facility] Start: 03-19-2021 Cigarettes [facility] Start: 1950 Sex Assigned At Female C [facility] Start: 01-13-2013 End: 05-18-2025 Tobacco smoking status NHIS Ex-smoker [facility] Start: 12-20-1967 End: 12-20-2012 History of tobacco use Current smoker [facility] Start: 12-20-1967 End: 12-20-2012 History of tobacco use Cigarette Smoker [facility] Start: 01-13-2013 End: 09-05-2024 Cigarettes smoked current (pack per day) - Reported 0.5 [facility] Start: 01-13-2013 End: 03-27-2025 Tobacco use and exposure Smokeless tobacco non-user [facility] Start: 12-02-2021 End: 03-27-2025 Alcohol intake Current non-drinker of alcohol (finding) [facility] Start: 12-01-2021 End: 12-02-2022 History SDOH Alcohol Frequency 1 [facility] Start: 12-01-2021 History SDOH Alcohol Std Drinks 98 [facility] Start: 12-01-2021 End: 12-02-2022 History SDOH Social Connections Phone 5 [facility] Start: 12-01-2021 End: 12-02-2022 History SDOH Social Connections Latter-Day 2 [facility] Start: 12-01-2021 End: 12-02-2022 History SDOH Social Connections Living 4 [facility] Start: 12-01-2021 End: 12-02-2022 History SDOH Physical Activity MPS 6 [facility] Start: 11-26-2019 Education 12 [facility] Start: 02-25-2022 End: 08-15-2022 Exposure to SARS-CoV-2 (event) Not sure [facility] Work Phone: Start: 12-02-2022 History SDOH Alcohol Std Drinks 0 [facility] Start: 12-01-2022 End: 09-05-2024 Social connection and isolation panel [facility] Do you belong to any clubs or organizations such as catholic groups, unions, fraternal or athletic groups, or school groups? No [facility] Are you now , , , , never or living with a partner? [facility] How often to you hav e a drink containing alcohol? Never [facility] How many standard drinks containing alcohol do you have on a typical day? Patient does not drink [facility] Do you feel stress - tense, restless, nervous, or anxious, or unable to sleep at night because your mind is troubled all the time - these days [OSQ] Only a little [facility] (I/We) worried niurka er (my/our) food would run out before (I/we) got money to buy more. Never true [facility] Start: 08-26-2019 Gender identity Identifies as female gender (finding) [facility] Start: 08-16-2024 Sexual orientation Heterosexual ([place] joy) [facility] Do you feel stress - tense, restless, nervous, or anxious, or unable to sleep at night because your mind is troubled all the time - these days [OSQ] Not at all [facility] Start: 02-17-2025 End: 03-07-2025 Sex Female (finding) [facility] NEGATED: Highlighted row [facility] Medical Equipment Procedure Code Equipment Code Equipment Original Text Equipment Identifier Dates Debridement, wound FDA Start: 05-20-2025 Debridement, wound FDA Start: 05-20-2025 [id number], [id number] Start: 02-15-2022 End: 06-04-2024 Comment on above: Test blood sugar(s) one times daily. Dx: Other DM Code E11.51 Insulin: No Use as instructed Goals Date Patient Goal Desired Activity /State Functional Status Date Assessment Result Facility 05-21-2025 Functional status Chair [facility] Work Phone: 05-18-2025 Functional status Active Range of Motion [facility] Work Phone: 03-20-2025 Functional status Up ad praveen;Chair [facility] Work Phone: 03-19-2025 Functional status Well [facility] Work Phone: 03-11-2025 Functional status Chair [facility] Work Phone: 03-11-2025 Functional status With Assist of 1 [facility] Work Phone: 03-11-2025 Functional status Rolling Walker [facility] Work Phone: 03-10-2025 Functional status Fair [facility] Work Phone: 06-09-2015 Are you deaf, or do you have serious difficulty hearing No 06/09/2015 3:01 PM Meka Delgado RN No [facility] 06-09-2015 Are you blind, or do you have serious difficulty seeing, even when wearing glasses No 06/09/2015 3:01 PM Meka Dlegado RN No [facility] 06-09-2015 Do you have serious difficulty walking or climbing stairs No 06/09/2015 3:01 PM Meka Delgado RN No [facility] 06-09-2015 Do you have difficul ty dressing or bathing No 06/09/2015 3:01 PM Meka Delgado RN No [facility] 06-09-2015 Because of a physica l, mental, or emotional condition, do you have difficulty doing errands alone such as visiting a physician's office or shopping No 06/09/2015 3:01 PM Meka Delgado RN No [facility] Mental Status Date Assessment Result Facility 05-21-2025 Cognitive function Voice/Name [facility] Work Phone: 05-18-2025 Cognitive function Voice/Name [facility] Work Phone: 03-20-2025 Cognitive function Voice/Name [facility] Work Phone: 03-11-2025 Cognitive function Voice/Name [facility] Work Phone: 01-20-2022 Cognitive function Voice/Name [facility] Work Phone: 06-09-2015 Because of a physica l, mental, or emotional condition, do you have serious difficulty concentrating, remembering, or making decisions No 06/09/2015 3:01 PM EDT Meka Baca RN No [facility] Clinical Notes 11-14-2017 to 05-20-2025 Note Date & Type Note Facility 05-20-2025 Consult note Note Date/Time May 20, 2025 9:19p m [facility] Medical Records Department [address] [place] [address] Anesthesia Postop Eval II 05/20/252117 MR#: [id number] Acct: [id number] Name: GELY NEWMAN Rep #:[id number] : 1950 75 From: Zachary Rodriguez MD PCP: Dr. Rishi Vasquez, DO Status:AD M IN Y Race: C Location: [place] [address] Anesthesia Postop Eval I Sum Postop Eval Completion status Anesthesia document: Postop Eval 1 completed: Yes Anesthesia Postop Eval I Summary Anesthesia Postop Eval I Summary: Anesthesia Postop Eval I: Assessment Summary Airway patent Yes 05/20/25 16:57 BOOK [email or web address] Spontaneous unlabored Yes 05/20/25 16:57 BOOK [email or web address].ACAR respirations Mental status Awake,Calm 05/20/25 16:57 BOOK [email or web address].ACAR nausea No 05/20/25 16:57 BOOK [email or web address].ACAR Vomiting No 05/20/25 16:57 BOOK [email or web address].ACAR Anesthesia Postop Eval I: Fluid Summary Crystalloid volume administer 200 05/20/25 16:57 BOOK [email or web address].ACAR (ml) Colloids volume administered ( ml) Blood Product volume administered (ml) Total IV fluid infused 200 05/20/25 16:57 BOOK [email or web address].ACAR Anesthesia Postop Eval I: Summary Notes Anesthesia Complication No 05/20/25 16:57 BOOK [email or web address].ACAR Anesthesia Complication Comment: Post-operative progress note Anesthesia: Postop Eval II Evaluation Mental status: Awake and Calm Pain Level: 1 nausea: No Vomiting: No Complications Anesthesia Complication: No 05/20/252118 <Electronically signed by Zachary mcguire MD> Date _ Zachary Balignjulien Signature: Date CC: ~ Signed [facility] Work Phone: 1(166) 548-549307-02-2025 Consult note Author Jw Victoria [facility] Note Date/Time May 20, 2025 4:57p m [facility] Medical Records Department [address] [place] [address] Anesthesia Postop Eval I 05/20/251656 MR#: [id number] Acct: [id number] Name: GELY NEWMAN Melinda Rep #:[id number] : 1950 75 From: Jw law CRNA PCP: Dr. Rishi Vasquez, DO Status:AD M IN Y Race: C Location: [place] [address] Anesthesia: Postop Eval I Current Vital Signs Temperature: 98.1 F Pulse Rate: 95 Blood Pressure: 96/45 Respiratory Rate: 16 Pulse Ox: 95 Oxygen Delivery Method: Room Air Assessment Airway patent: Yes Spontaneous unlabored respirations: Yes Mental status: Awake and Calm nausea: No Vomiting: No Anesthesia Complication: No Fluid Hydration Crystalloid volume administer (ml): 200 Total IV fluid infused: 200 Progress Note Anesthesia document: Postop Eval 1 completed: Yes 05/20/251656 <Electronically signed by Jw segal CRNA> Date _ Jw Baligner Signature: Date CC: ~ Signed [facility] Work Phone: 1(410) 561-181307-02-2025 Progress note Author Michaela Joshua [facility] Note Date/Time May 20, 2025 4:41p [facility] Medical Records Department [address] [place] [address] Progress Note - Hospitalist 05/20/25 0733 MR#: [id number] Acct: [id number] Name: GELY NEWMAN Rep #:[id number] : 1950 75 From: Michaela Joshua DO PCP: Dr. Rishi Vasquez, DO Status:AD M IN Location: MS3 [id number] Reason for Visit Reason for Visit: Generalized weakness/debility Subjective Subjective Patient is complaining of some neck pain that is been chronic for about the last2 months she states it comes and goes. He denies back on this is not helpful. I did inform her that we would try heat pack and will add some mild muscle relaxant low-dose. Plan is for OR later today. She states she would like to gohome but she did not do very well with therapy. I am concerned that she may need placement at discharge. Objective Data Objective Data Vital Signs: Vital Signs Temp Pulse Resp BP Pulse Ox O2 Del Method O2 Flow Rate 98.9 F 62 16 137/49 H 99 Room Air 2 05/20/25 03:00 05/20/25 06:48 05/20/25 06:48 05/20/25 03:00 05/20/25 06:48 05/20/25 06:48 05/18/25 16:00 FiO2 96 05/18/25 08:00 Oxygen Flow Rate (L/min) 2 Oxygen Delivery Method Room Air Weight: 73.2 kg Body Mass Index (BMI) 25.9 Intake & Output: Intake and Output for Last 24 Hours 05/18/25 05/19/25 05/20/25 23:59 23:59 23:59 Intake Total 5082.33 / 5442.33 360 / 360 Output Total 325 / 325 850 / 850 Balance 4757.33 / 5117.33 -490 / -490 Lab / Micro Data 05/20/25 05:30 05/20/25 05:30 Labs: Laboratory Results - last 24 hr 05/19/25 07:39: POC Glucose 82 05/19/25 11:30: POC Glucose 111 H 05/19/25 16:32: POC Glucose 237 H 05/19/25 21:14: POC Glucose 197 H 05/20/25 06:27: POC Glucose 143 H Micro: Microbiology 05/17/25 22:33 Blood Culture (Wb) - Right Wrist Blood Culture - Preliminary 05/18/25 04:00 Wound - Right Foot Gram Stain - Final 05/18/25 04:00 Wound - Right Foot Wound Culture - Preliminary Staphylococcus species 05/18/25 04:00 Wound - Right Foot Skin and Soft Tissue MRSA/MSSA (PCR - Final Meth. resistant Staph. aureus Physical Exam Const alert, oriented x3 and no apparent distress; Negative for healthy appearing or well nourished Constitutional Narrative: Thin, white female, sitting up in a chair at the bedside, physical therapy at the bedside getting ready to get her up and moving around, appears comfortable, nontoxic, appears older than stated age HEENT head/scalp atraumatic and moist oral mucous membranes HEENT Narrative: Dentition is poor, Mallampati is 2, no thrush Head and Scalp: normocephalic Resp normal respiratory effort, no retractions, no use of accessory muscles and clearto auscultation bilaterally Resp Narrative: Diffusely diminished but clear Auscultation: Negative for rales, rhonchi or wheezes Cardio regular rate, regular rhythm, S1 normal heart sound, S2 normal heart sound, no murmurs, no rub, no gallops and no clicks GI normal to inspection, nondistended, normoactive bowel sounds, soft to palpation and non-tender Extremity no clubbing, cyanosis or edema Extremity Narrative: Diminished cap refill bilateral lower extremities left greater than right, radial pulses are 2+ bilaterally Skin Skin Narrative: Patient with offloading brace left lower extremity for wounds, 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with multiple amputations, decreased cap refill as noted above Neuro moves all extremities and no focal motor deficits Neuro Narrative: Generalized weakness no focal deficit Speech: speech normal Psych affect normal Psych Narrative: Pleasant, interacts appropriately Assessment & Plan Assessment/Plan (1) Non-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: (2) 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 foot with fat layer exposed: (3) Non-pressure chronic ulcer of other part of right foot with fat layer exposed: (4) Sepsis: (5) Acute UTI: (6) Acute hypoxic respiratory failure: PLAN: Plan Sepsis secondary to suspected urinary tract infection - Culture shows yeast, gram-positive maycol, and gram-negative maycol - Sepsis syndrome has resolved - Continue broad-spectrum antibiotics with Zosyn and linezolid per infectious disease - CT of the abdomen pelvis performed without contrast to assess for any renal abnormalities or calculi/hydronephrosis/pyelonephritis that may need intervention due to the fact she developed sepsis - No significant abnormalities were noted SHAYY secondary to ATN - Most recent baseline serum creatinine is between 0.9 and 1.1 - on presentation serum creatinine is 1.96 - Creatinine seems to be stabilizing at 1.4-1.5 range currently being 1.49 suspect this may be her new baseline - Avoid nephrotoxins as able - Continue IV fluids as ordered Peripheral vascular disease with bilateral lower extremity ulceration and wounds - Cultures are showing Staph aureus in the form of MRSA - Vascular surgery is following - Wounds are stable and do not appear to be the etiology of her sepsis - Plan is for revascularization next Sunday as long as she is medically stable - May go home and come back as an outpatient if medically stable for discharge prior to this - Continue aspirin and Plavix Diabetic foot ulcer bilateral lower extremities - Wounds overall appear stable - will continue antibiotic regimen -Cultures with MRSA - OR later today with podiatry - Outpatient plan for revascularization is next Sunday as noted above Acute hypovolemic hyponatremia - Resolved CAD/essential hypertension/hyperlipidemia - Continue home metoprolol - Restart home atorvastatin - Continue home aspirin - Continue Plavix Chronic normocytic anemia secondary to iron deficiency - Hemoglobin appears to be stable - continue home iron supplementation and vitamin C supplementation which will assist with iron absorption COPD with history of tobacco use - Continue aerosols as ordered Anxiety/depression - Patient currently is not on any medication for this DVT prophylaxis - Continue heparin 3 times daily CODE STATUS -Full code is verified on admission Charges/Coding Visit Charges Inpatient E&M: 35791 Subs Hosp L2 05/20/25 1641 <Electronically signed by Michaela Joshua DO> Cosigner Signature (if applicable): CC: ~ Signed [facility] Work Phone: 1(845) 631-280007-02-2025 Consult note Author Zachary Rodriguez [facility] Note Date/Time May 20, 2025 3:37p m [facility] Medical Records Department [address] [place] [id number] Pre-Anesthesia Evaluation 05/20/25 1526 MR#: [id number] Acct: [id number] Name: GELY NEWMAN Rep #:[id number] : 1950 75 From: Zachary Rodriguez MD PCP: Dr. Rishi Vasquez, DO Status:AD M IN Y Race: C [place] [facility] [place] ASA Classification* ASA Classification ASA Classification: 3 Assessment & Plan Anesthesia* Anesthesia Assessment Anesthesia Assessment: Discussed sedation and/or anesthesia options, risks, benefits, and alternatives with patient/parents/legal guardian/POA. Questions invited. The patient/parents/legal guardian/POA seems to understand and agrees to proceedwith anesthesia plan. Reviewed the physical assessment, medical history, allergy history and patient home medications list prior to surgery/procedure/anesthetic and documented any changes. Performed airway and anesthesia risk assessments. Anesthesia Type Anesthesia Type: MAC (General as a backup plan.) History Source History Obtained from:: Patient and Chart Anesthesia Focused Assessment* Temperature: 98.5 F Pulse Rate: 70 Blood Pressure: 116/47 Respiratory Rate: 16 Pulse Ox: 100 Oxygen Delivery Method: Room Air Oxygen Flow Rate (L/min): 2 Fraction of Inspired Oxygen (FIO2): 96 Airway Assessment Mouth opens: >3 cm Mallampati Score: IV Teeth Condition: Dentures (Patient has upper and lower dentures.) Neck Range of motion (ROM): Limited ROM (Slight decrease in extension) Labs Anesthesia Preop lab: CBC WBC 5.3 K/mm3 (4.4-11.0) 05/20/25 05:30 05/20/25 RBC 3.09 M/mm3 (4.2-5.4) L 05/20/25 05:30 05/20/25 Hgb 8.9 g/dL (12.0-15.0) L 05/20/25 05:30 05/20/25 Hct 27.2 % (37-47) L 05/20/25 05:30 05/20/25 Plt Count 165 K/mm3 (150-450) 05/20/25 05:30 05/20/25 CHEMISTRY Potassium 4.0 mmol/L (3.3-5.1) 05/20/25 05:30 05/20/25 Sodium 138 mmol/L (133-145) 05/20/25 05:30 05/20/25 Magnesium 2.5 mg/dL (1.5-2.2) H 05/19/25 06:21 05/19/25 Phosphorus 3.7 mg/dL (2.7-4.5) 05/19/25 06:21 05/19/25 BUN 58 mg/dL (4-19) H 05/20/25 05:30 05/20/25 Creatinine 1.49 mg/dL (0.70-1.20) H 05/20/25 05:30 Glucose 143 mg/dL (70-99) H 05/20/25 05:30 05/20/25 POC Glucose 133 mg/dL (74-106) H 05/20/25 11:41 05/20/25 TSH < 0.01 uIU/mL (0.358-3.74) L 02/07/17 09:38 COAG PT 15.5 SECONDS (11.7-14.9) H 05/18/25 05:21 04/21 Pre-Assessment Diagnosis/Proposed Procedure Planned Operative Procedure(s): Surgical skin graft site With application of a skin graft substitute, Bilateral lower extremity incision of bone cortex, left ankle. Anesthesia History Anesthesia History - lusterer: Anesthesia History - lusterer Hx Hospitalization Yes: 02/2025 FELL 05/08/25 10:01 Any Problems With Anesthesia No 05/20/25 08:47 Cholinesterase deficiency No 05/20/25 08:47 You/Your Family Experience No 05/20/25 08:47 fever (hyperthermia) with Relationship Recent Exposure to Contagious No 05/20/25 08:47 Disease Does patient have nerve No 05/20/25 08:47 stimulator Patient instructed to have No 05/20/25 08:47 device shut off --Does patient have Pacemaker No 05/20/25 12:58 or ICD? When Was Last Pacemaker Check QUESTION #4 FULL TEXT: You/Your Family Experience fever (hyperthermia) with Anesthesia Last Oral Intake Last Oral intake: Last Oral Intake NPO since 00:00 05/20/25 12:58 Meds taken in AM with sips of water? Meds patient instructed to take am of surgery PONV PONV - lusterer: PONV - lusterer Female HX of Motion Sickness HX of N/V After Surgery Non-Smoker Duration of Surgery greater than 60 minutes Number of Risk Factors PONV Score Height & Weight Height & Weight: Anesthesia: Height & Weight Height 5 ft 6 in 05/20/25 12:58 Weight: 73.2 kg 05/20/25 12:58 Body Mass Index (BMI) 26.0 05/20/25 12:58 Respiratory Assessment Respiratory Assessment - lusterer: Respiratory Tract Infection Hx - lusterer Hx Respiratory Tract Infection No 05/20/25 08:47 STOP Sleep Apnea STOP Sleep Apnea - lusterer: STOP Sleep Apnea - lusterer Hx Hypertension Yes 05/18/25 11:21 Hx Sleep Apnea No 05/18/25 02:15 CPAP No 05/08/25 10:01 BIPAP No 05/08/25 10:01 Do you snore loudly (louder No 05/18/25 02:15 than talking or can be heard Do you often feel tired/ No 05/18/25 02:15 fatigued/ sleepy during daytime? Has anyone observed you stop No 05/18/25 02:15 breathing during sleep? STOP Results Negative 05/18/25 02:15 QUESTION #5 FULL TEXT : Do you snore loudly (louder than talking or can be heard through closed doors)? 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 Specify any problems Hx of Preganancy in last 3 N/A 05/18/25 02:15 Months Nurse Filling Out Transfusion LSMITH 05/18/25 02:15 & Questions: Date: 05/18/25 05/18/25 02:15 Time: 03:05/18/25 02:15 Patient unable to answer at this time (ie. confused, unrespo /Reproduction History /Reproductive History - lusterer: /Reproductive Hx- lusterer Hx Now No 05/19/25 03:12 Gestational Age (in weeks): EDC: Hx Hx Para Hx Section SAB No 05/18/25 03:12 Active Medications Active Medications: Current Medications Generic Name Dose Route Start Last Admin Trade Name Freq PRN Reason Stop Dose Admin Acetaminophen 650 mg 05/18/25 03:19 05/20/25 03:32 Acetaminophen 325 Mg Tablet PO 650 mg Q4H PRN PRN Administration Fever, pain 1-08/28 Al Hydroxide/Mg Hydroxide 30 ml 05/18/25 03:19 Mag Hydrox/Al Hydrox/Simeth 30 Ml Udc PO Q6H PRN PRN Gastric Burning Albuterol Sulfate 2.5 mg 05/18/25 03:19 05/18/25 19:16 Albuterol 2.5 Mg/3 Ml Vial.Neb. INHALATION 2.5 mg Q2H PRN PRN Administration Dyspnea, wheezing Albuterol/Ipratropium 3 ml 05/18/25 07:26 05/20/25 10:28 Ipratropium/Albuterol Sulfate 3 Ml Ampul.Neb INHALATION 3 ml Q4HWA.RT HADLEY Administration Ascorbic Acid 1,000 mg 05/18/25 12:00 05/20/25 11:44 Ascorbic Acid 500 Mg Tablet PO Not Given LUNCH HADLEY Aspirin 81 mg 05/18/25 22:00 05/19/25 21:07 Aspirin E.C. 81 Mg Tablet PO 81 mg QHS HADLEY Administration Atorvastatin Calcium 10 mg 05/19/25 22:00 05/19/25 21:07 Atorvastatin Calcium 10 Mg Tablet PO 10 mg QHS HADLEY Administration Clopidogrel Bisulfate 75 mg 05/18/25 10:00 05/20/25 11:23 Clopidogrel Bisulfate 75 Mg Tablet PO Not Given DAILY HADLEY Collagenase 1 applic 05/18/25 10:00 05/20/25 08:44 Collagenase 30gm Tube TOPICAL Not Given DAILY [facility] Protocol Ferrous Sulfate 325 mg 05/18/25 12:00 05/20/25 11:44 Ferrous Sulfate 325 Mg Tablet PO Not Given DAILY@1200 [facility] Glucagon 1 mg 05/18/25 03:19 Glucagon 1 Mg/Ml Syringe IM X1 PRN HYPOGLYCEMIA Protocol Guaifenesin 20 ml 05/18/25 03:19 Guaifenesin 10 Ml Udc (200mg/10ml) PO Q4H PRN PRN COUGH Heparin Sodium (Porcine) 5,000 unit 05/19/25 14:00 05/20/25 11:49 Heparin Injection (Vial) 5,000 Unit/Ml Vial SC Not Given Q8 HADLEY Hydralazine HCl 10 mg 05/18/25 03:19 Hydralazine 20 Mg/Ml Vial IV Q4H PRN PRN SBP > 160 Protocol Dextrose 250 mls @ 0 mls/hr 05/18/25 03:19 Dextrose 10%-Water IV .Q0M PRN HYPOGLYCEMIA Protocol As Directed Lactated Ringer's 1,000 mls @ 15 mls/hr 05/20/25 14:45 05/20/25 14:44 IV 15 mls/hr .Q48H HADLEY Administration Insulin Human Lispro 0 unit 05/18/25 07:00 05/20/25 11:43 Insulin Lispro 100 Unit/Ml Insuln.Pen SC Not Given ACHS [facility] Protocol L-Arginine/L-Glutamine/Calcium HMB 1 packet 05/18/25 17:00 05/20/25 06:39 Davion (Unflavored) Packet PO Not Given BIDCM [facility] Linezolid 600 mg 05/18/25 22:00 05/20/25 11:23 Linezolid 600 Mg Tablet PO Not Given BID [facility] Melatonin 3 mg 05/18/25 03:19 Melatonin 3 Mg Tablet PO QHS PRN PRN INSOMNIA Metaxalone 400 mg 05/20/25 13:59 Metaxalone 800 Mg Tablet PO TID PRN MUSCLE SPASM Metoprolol Succinate 12.5 mg 05/19/25 13:00 05/20/25 09:39 Metoprolol(Xl)Succ 25 Mg Tablet PO Not Given DAILY [facility] Protocol Ondansetron HCl 4 mg 05/18/25 03:19 Ondansetron 4 Mg/2 Ml Vial IV Q8H PRN PRN NAUSEA/VOMITING Pregabalin 100 mg 05/19/25 15:30 05/20/25 13:40 Pregabalin 50 Mg Capsule PO Not Given TID HADLEY Prochlorperazine Edisylate 5 mg 05/18/25 03:19 Prochlorperazine 10 Mg/2 Ml Vial IV Q4H PRN PRN Breakthrough nausea/vomiting Senna/Docusate Sodium 2 tablet 05/18/25 03:19 Senna/Docusate Sodium 1 Tablet PO BID PRN PRN Constipation Sodium Chloride 10 - 40 ml 05/18/25 03:04 05/19/25 06:14 0.9% Saline Lock 10 Ml Syringe IV 10 ml UD PRN Administration SALINE FLUSH PFSH Medical History Other specified peripheral vascular diseases History of MRSA infection Pressure ulcer Ambulates with cane Shortness of breath on exertion History of edema History of echocardiogram Fall 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 Chronic painful diabetic polyneuropathy MRSA (methicillin resistant staph aureus) culture positive Depression Diabetes Back pain Vertigo History of pain when walking Hypertension Arthritis Wears dentures Post-menopausal Low iron High cholesterol Easy bruising Neuropathy Dietary restriction Former smoker Cardiology follow-up encounter History of torn meniscus of left knee Carotid artery stenosis Essential hypertension Skin lesion Hammer toe of left foot Osteomyelitis Chronic kidney disease, stage 3 Atherosclerosis of coronary artery of [place] heart without angina pectoris Hyperlipidemia Peripheral vascular occlusive disease Hammer toe of second toe of left foot Hallux valgus (acquired), right foot Healed ulcer of left foot on examination Chronic ulcer of left foot with fat layer exposed Delayed wound healing Malnutrition Osteomyelitis of foot 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 Methicillin resistant Staphylococcus aureus infection Chronic osteomyelitis of left foot Non-healing ulcer of right foot DM2 (diabetes mellitus, type 2) Home Medications ?Medication ?Instructions ?Recorded ?Last Taken ?Type aspirin 81 mg tablet,delayed 81 mg PO QHS blood clots 01/13/14 04/14/25 History release multivitamin with folic acid 400 1 tab PO DAILY Supple ment 01/13/14 11/14/16 History mcg tablet omega-3 fatty acids-fish oil 340 1 ea PO DAILY supplem ent 06/29/16 08/27/16 History mg-1,000 mg capsule ferrous sulfate 325 mg (65 mg 325 mg PO DAILY SUPPLEME NT 08/15/18 03/08/25 History iron) tablet ascorbic acid (vitamin C) 500 mg 1,000 mg PO LUNCH Sup plement 11/25/20 03/11/25 11:50 History tablet calcium carbonate (Calcium 600) 600 mg PO DAILY supple ment 12/29/21 Unknown History clopidogrel 75 mg tablet 75 mg PO DAILY Blood clots # 90 tabs 10/23/24 04/15/25 Rx Lactobacillus acidophilus 600 mg PO QDAY gi 03/07/25 0 03/11/25 09:00 History (Acidophilus capsule) pregabalin 100 mg capsule 100 mg PO TID nerve pain 03/11/25 11:50 History simvastatin 20 mg tablet 20 mg PO QHS cholesterol #30 tabs 03/23/25 Unknown Rx nystatin 100,000 unit/gram topical 1 applic topical BI D PRN rash 05/07/25 Unknown History powder (Nyamyc) acetaminophen 650 mg 650 mg PO Q12H PRN pain 04/20 Unknown History tablet,extended release amlodipine 5 mg tablet 5 mg PO DAILY HTN #90 tabs 0 05/12/25 Unknown Rx metoprolol succinate 25 mg 12.5 mg (1/2 x 25 mg) PO DA FABIAN 05/12/25 Unknown Rx tablet,extended release 24 hr HEART RATE #45 tabs glimepiride 2 mg tablet 2 mg PO BID 05/18/25 Unknown History Allergy/AdvReac Type Severity Reaction Status Date / Time Sulfa (Sulfonamide Allergy Unknown Verified 05/17/25 21:44 Antibiotics) Family History Father CAD (coronary artery disease) Heart disease Hypertension CVA (cerebral vascular accident) Mother COPD (chronic obstructive pulmonary disease) Hypertension Heart disease Heart failure Surgical History History of cardiac catheterization History of colonoscopy History of foot surgery History of repair of left rotator cuff History of total left knee replacement (~2014) History of angioplasty of peripheral vessel (~2012) amputation left toe History of left heart catheterization (~01/20/14) Social History household members: none Smoking Status: Former smoker how long ago did patient quit smokin years ago alcohol intake: never substance use type: does not use caffeine: No Review of Systems (Anesthesia) ROS Narrative System reviewed and no additional complaints, except as documented. 05/20/25 1537 <Electronically signed by Zachary mcguire MD> Date _ Zachary Rodriguez MD Cosigner Signature: Date CC: ~ Signed [facility] Work Phone: 1(383) 935-315007-02-2025 Procedure [facility] 05-20-2025 Progress note Author Jason Polk [facility] Note Date/Time May 20, 2025 12:06 pm [facility] Medical Records Department [address] [place] [address] Progress Note - Infect Disease 05/20/25 1204 MR#: [id number] Acct: [id number] Name: GELY NEWMAN Rep #:[id number] : 1950 75 From: Jason Polk MD PCP: Dr. Rishi Vasquez, DO Status:AD M [place] [facility] [id number] ID ID: Route of nutrition/ use of supplements: [] Nutritional Intake: [] IV Site: [] Null Catheter: [] Patient out of bed to a chair overall clinically stable. Had a relatively uneventful night. Tolerating linezolid well. No further fevers. No gastrointestinal distress. No cardiopulmonary symptoms. Vital signs reviewed remains euthermic lungs are clear heart exam S1-S2 abdomen soft nontender Assessment & Plan Assessment/Plan (1) Type 2 diabetes mellitus with foot ulcer: PLAN: MRSA isolated from multiple wound cultures of the feet. Will continue linezolid 600 mg p.o. every 12 hours. Patient scheduled for surgery from reviewing podiatry's note plan for debridement and skin flap. 05/20/25 1206 <Electronically signed by Jason Polk MD> Cosigner Signature (if applicable): CC: ~ Signed [facility] Work Phone: 1(580) 815-790907-02-2025 Progress note Author Patel Irene [facility] Note Date/Time May 20, 2025 7:53a m [facility] Medical Records Department [address] [place] [address] Progress Note - Surgery 05/20/25 0746 MR#: [id number] Acct: [id number] Name: GELY NEWMAN Rep #:[id number] : 1950 75 From: Patel Abraham PM PCP: Dr. Rishi Vasquez, DO Status:AD M IN Location: MS3 [id number] Subjective Subjective Ms. Newman is a 75-year-old diabetic female seen at bedside today for evaluationprior to surgery. Patient is doing well and has been transferred back to the medicine floor from ICU. She is doing well and anticipating surgery today. No acute events overnight. Denies any constitutional symptoms. No other pedal complaints at this time. Objective Data Objective Data Vital Signs: Vital Signs Temp Pulse Resp BP Pulse Ox O2 Del Method O2 Flow Rate 98.9 F 62 16 137/49 H 99 Room Air 2 05/20/25 03:00 05/20/25 06:48 05/20/25 06:48 05/20/25 03:00 05/20/25 06:48 05/20/25 06:48 05/18/25 16:00 FiO2 96 05/18/25 08:00 Oxygen Flow Rate (L/min) 2 Oxygen Delivery Method Room Air Weight: 73.2 kg Body Mass Index (BMI) 25.9 Intake & Output: Intake and Output for Last 24 Hours 05/18/25 05/19/25 05/20/25 23:59 23:59 23:59 Intake Total 5082.33 / 5442.33 360 / 360 Output Total 325 / 325 850 / 850 Balance 4757.33 / 5117.33 -490 / -490 Lab / Micro Data 05/19/25 06:21 05/19/25 06:21 Labs: Laboratory Results - last 24 hr 05/19/25 07:39: POC Glucose 82 05/19/25 11:30: POC Glucose 111 H 05/19/25 16:32: POC Glucose 237 H 05/19/25 21:14: POC Glucose 197 H 05/20/25 06:27: POC Glucose 143 H Micro: Microbiology 05/18/25 04:00 Wound - Right Foot Gram Stain - Final 05/18/25 04:00 Wound - Right Foot Wound Culture - Preliminary Staphylococcus aureus Rothia kristinae 05/18/25 04:00 Wound - Right Foot Skin and Soft Tissue MRSA/MSSA (PCR - Final Meth. resistant Staph. aureus 05/17/25 22:33 Blood Culture (Wb) - Right Wrist Blood Culture - Preliminary Physical Exam Narrative Neurovascular status is unchanged. Multiple full-thickness wounds appreciated to the bilateral lower extremity stable with no sign of infection. Negative probe to bone to the left heel. No pain with calf compression. Const oriented x3 and no apparent distress Assessment & Plan Assessment/Plan (1) Non-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: PLAN: Patient was examined and evaluated. All findings were discussed with the patient. All questions were answered to the patient satisfaction. Plan for today will be to take the patient to the operating room to perform surgical skin graft site prep with application of skin graft substitute to the bilateral lower extremity full-thickness wounds. All risk and benefits as discussed with the patient in great detail. Patient is currently n.p.o. After surgery the patient will be cleared to discharge from a podiatry standpoint to follow back up with vascular surgery for intervention to the left lower extremity. Patient will have home health care for every other day dressing changes. Medicine: On board, medical management Infectious disease: On board, 600 mg p.o. linezolid every 12 hours Patient has been being followed by wound care nurse for dressing changes. Podiatry will continue to follow while patient is in house. Thank you for letting me be involved in the patient care. (2) Non-pressure chronic ulcer of other part of right foot with fat layer exposed: (3) 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 foot with fat layer exposed: (4) Other specified peripheral vascular diseases: (5) Type 2 diabetes mellitus with foot ulcer: 05/20/25 5113 <Electronically signed by Patel Irene DPM> Cosigner Signature (if applicable): CC: ~ Signed [facility] Work Phone: [phone]) 931-781207-01-2025 Progress note Author Jason Polk [facility] Note Date/Time May 19, 2025 2:07p m [facility] Medical Records Department [address] [place] [address] Progress Note - Infect Disease 05/19/25 1406 MR#: [id number] Acct: [id number] Name: GELY NEWMAN Rep #:[id number] : 1950 75 From: Jason Polk MD PCP: Dr. Rishi Vasquez, DO Status:AD M IN Location: ICU CVICU20 11-19 ID ID: Route of nutrition/ use of supplements: [] Nutritional Intake: [] IV Site: [] Null Catheter: [] Patient is alert and responsive. Comfortable on room air. No further fevers. Tolerating linezolid well. No cardiopulmonary distress. No gastrointestinal symptoms. Vital signs reviewed remained euthermic lungs are clear heart exam S1-S2 abdomen soft nontender left foot dressings in place Assessment & Plan Assessment/Plan (1) Type 2 diabetes mellitus with foot ulcer: PLAN: Diabetic foot ulcers with Staphylococcus aureus isolated from the wound cultures. Will continue linezolid 600 mg p.o. every 12 hours and follow clinically. The patient tells me that she is scheduled for surgery tomorrow for debridement of her diabetic foot wounds. 05/19/251406 <Electronically signed by Jason Polk MD> Cosigner Signature (if applicable): CC: ~ Signed [facility] Work Phone: [phone]) [phone] Progress note Author Michaela Joshua [facility] Note Date/Time May 19, 2025 12:55 pm [facility] Medical Records Department [address] [place] [address] Progress Note - Hospitalist 05/19/25 1246 MR#: [id number] Acct: [id number] Name: GELY NEWMAN Rep #:[id number] : 1950 75 From: Michaela Joshua DO PCP: Dr. Rishi Vasquez, DO Status:AD M IN Location: ICU CVICU20 11-19 Reason for Visit Reason for Visit: Generalized weakness/debility Subjective Subjective Patient states she is feeling okay today. Much more awake, no issues overnight. Plan is for surgery tomorrow. Objective Data Objective Data Vital Signs: Vital Signs Temp Pulse Resp BP Pulse Ox O2 Del Method O2 Flow Rate 98.2 F 105 H 16 136/78 H 98 Room Air 2 05/19/25 12:00 05/19/25 12:00 05/19/25 12:00 05/19/25 12:00 05/19/25 12:00 05/19/25 12:00 05/18/25 16:00 FiO2 96 05/18/25 08:00 Oxygen Flow Rate (L/min) 2 Oxygen Delivery Method Room Air Weight: 73.2 kg Body Mass Index (BMI) 25.9 Intake & Output: Intake and Output for Last 24 Hours 05/17/25 05/18/25 05/19/25 23:59 23:59 23:59 Intake Total 5082.33 / 5442.33 360 / 360 Output Total 325 / 325 600 / 600 Balance 4757.33 / 5117.33 -240 / -240 Lab / Micro Data 05/19/25 06:21 05/19/25 06:21 Labs: Laboratory Results - last 24 hr 05/18/25 16:15: POC Glucose 191 H 05/18/25 21:22: POC Glucose 195 H 05/19/25 06:21: WBC 5.8, RBC 2.98 L, Hgb 8.7 L, Hct 26.9 L, MCV 90.3, MCH 29.2, MCHC 32.3, RDW Std Deviation 52.0 H, RDW Coeff of Jorgito 15.7 H, Plt Count 148 L, MPV 11.2, Immature Gran % (Auto) 0.500, Neut % (Auto) 73.3 H, Lymph % (Auto) 13.7 L, Scurry % (Auto) 10.4 H, Eos % (Auto) 1.6, Baso % (Auto) 0.5, Absolute Neuts (auto) 4.2, Absolute Lymphs (auto) 0.79 L, Nucleated RBC % 0, Sodium 140, Potassium 4.2, Chloride 109 H, Carbon Dioxide 19.4 L, Anion Gap 11, BUN 53 H, Creatinine 1.46 H, Estim Creat Clear Calc 35.14 L, Est GFR (MDRD) Non-Af 38 L, BUN/Creatinine Ratio 36.4 H, Glucose 89, Calcium 8.8, Phosphorus 3.7, Magnesium 2.5 H, Total Bilirubin 0.25, AST 68 H, ALT 37 H, Alkaline Phosphatase 45, Total Protein 5.4 L, Albumin 2.5 L, Globulin 2.9, Albumin/Globulin Ratio 0.9 05/19/25 07:39: POC Glucose 82 05/19/25 11:30: POC Glucose 111 H Micro: Microbiology 05/17/25 22:33 Blood Culture (Wb) - Right Wrist Blood Culture - Preliminary 05/18/25 04:00 Wound - Right Foot Gram Stain - Final 05/18/25 04:00 Wound - Right Foot Wound Culture - Preliminary Staphylococcus species 05/18/25 04:00 Wound - Right Foot Skin and Soft Tissue MRSA/MSSA (PCR - Final Meth. resistant Staph. aureus Radiography Diagnostic Testing: Radiology Impression Ankle X-Ray 05/18/25 13:30 IMPRESSION: Severe pes planus is again seen. Moderate arterial calcification is again noted. Prominent soft tissue swelling is seen over the lateral ankle. No osseous destructive changes seen to suggest the presence of osteomyelitis. No cortical or periosteal changes are identified. If clinical concern persists, consider further evaluation with nuclear medicine three-phase bone scan or other follow up imaging. Reading Location: [place] [address] Physical Exam Const alert, oriented x3 and no apparent distress; Negative for healthy appearing or well nourished Constitutional Narrative: Thin, white female, sitting up in a chair at the bedside, appears comfortable, nontoxic, appears older than stated age HEENT head/scalp atraumatic and moist oral mucous membranes HEENT Narrative: Mallampati 2, no thrush Head and Scalp: normocephalic Resp normal respiratory effort, no retractions, no use of accessory muscles and clearto auscultation bilaterally Auscultation: Negative for rales, rhonchi or wheezes Cardio regular rate, regular rhythm, S1 normal heart sound, S2 normal heart sound, no murmurs, no rub, no gallops and no clicks GI normal to inspection, nondistended, normoactive bowel sounds, soft to palpation and non-tender Extremity no clubbing, cyanosis or edema Extremity Narrative: Diminished cap refill bilateral lower extremities left greater than right, radial pulses are 2+ bilaterally Skin Skin Narrative: Patient with offloading brace left lower extremity for wounds, 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with multiple amputations, decreased cap refill as noted above Neuro oriented x3, moves all extremities and no focal motor deficits Neuro Narrative: Generalized weakness no focal deficit Speech: speech normal Psych affect normal Psych Narrative: Pleasant, interacts appropriately Assessment & Plan Assessment/Plan (1) Non-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: (2) 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 foot with fat layer exposed: (3) Non-pressure chronic ulcer of other part of right foot with fat layer exposed: (4) Sepsis: (5) Acute UTI: (6) Acute hypoxic respiratory failure: PLAN: Plan Sepsis secondary to suspected urinary tract infection - UA is markedly abnormal still awaiting culture results both blood and urine - Sepsis syndrome has resolved - Continue broad-spectrum antibiotics with Zosyn and linezolid per infectious disease - CT of the abdomen pelvis performed without contrast to assess for any renal abnormalities or calculi/hydronephrosis/pyelonephritis that may need intervention due to the fact she developed sepsis - No significant abnormalities were noted SHAYY secondary to ATN - Most recent baseline serum creatinine is between 0.9 and 1.1 - on presentation serum creatinine is 1.96 -Now down to 1.46 - Fluid boluses as noted above - Avoid nephrotoxins as able - Continue IV fluids as ordered Acute hypoxic respiratory failure - Resolved - Continue aerosols Peripheral vascular disease with bilateral lower extremity ulceration and wounds - Cultures are showing Staph aureus in the form of MRSA - Vascular surgery is following - Wounds are stable and do not appear to be the etiology of her sepsis - Plan is for revascularization next Sunday as long as she is medically stable - May go home and come back as an outpatient if medically stable for discharge prior to this - Continue aspirin and Plavix Diabetic foot ulcer bilateral lower extremities - Wounds overall appear stable - will continue antibiotic regimen -Cultures with MRSA - Podiatry is following and plans for some debridement on Sunday - Outpatient plan for revascularization is next Sunday as noted above Acute rhabdomyolysis - Resolved Mild transaminitis - Slowly improving Acute hypovolemic hyponatremia - IV fluids as noted above - Repeat lab in a.m. CAD/essential hypertension/hyperlipidemia - Will continue to hold antihypertensives for now but consider restarting soon - Restart home atorvastatin - Continue home aspirin - Continue Plavix Chronic normocytic anemia secondary to iron deficiency - Hemoglobin appears to be stable - continue home iron supplementation and vitamin C supplementation which will assist with iron absorption COPD with history of tobacco use - Continue aerosols as ordered Anxiety/depression - Patient currently is not on any medication for this DVT prophylaxis - Continue heparin 3 times daily CODE STATUS -Full code is verified on admission Charges/Coding Visit Charges Inpatient E&M: 01420 Subs Hosp L2 05/19/25 7908 <Electronically signed by Michaela Joshua DO> Cosigner Signature (if applicable): CC: ~ Signed [facility] Work Phone: 1(247) 367-420507-01-2025 Progress note Author Jacinto Tamez [facility] Note Date/Time May 19, 2025 8:28a m [facility] Medical Records Department [address] [place] [address] Progress Note - Flight Engineer Inspector 05/19/25 0637 MR#: [id number] Acct: [id number] Name: GELY NEWMAN Rep #:[id number] : 1950 75 From: Jacinto Tamez DO PCP: Dr. Rishi Vasquez DO Status:AD M IN Location: ICU CVICU20 1-1 Assessment & Plan Assessment/Plan (1) Acute UTI: PLAN: Plan RECOMMENDATIONS: 1. Continue antibiotics per ID recommendations. 2. Scheduled bronchodilators. 3. Encourage incentive spirometer use and mobilize patient as tolerated. 4. Will sign off from a critical care perspective. IMPRESSIONS: 1. Sepsis The patient presented with sepsis due to probable UTI with acute sepsis related organ dysfunction as evidenced by persistent hypotension with a MAP of less than65 and/or systolic blood pressure less than 90 mmHg. The patient did receive supplemental IV fluid hydration with appropriate response, hemodynamically. Thepatient has never required any vasopressor support. Antimicrobial therapy will be continued per ID recommendations. 2. Acute on chronic kidney disease Improving. Most likely prerenal in etiology. Creatinine is improving with volume expansion. Continue to monitor urine output for now. No current indication for renal replacement therapy. 3. 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 The patient is currently maintaining appropriate oxygen saturations on room air. 4. History of peripheral arterial disease/coronary artery disease/diabetes mellitus/hypertension/hyperlipidemia/anemia Complicates care, management, recovery and prognosis. Continue supportive measures as noted above. This note was generated with [employer] dictation software. It may contain incorrectwords, spelling, and punctuation that were not noted in checking the note beforesigning. Subjective Subjective The patient was seen and examined at the bedside this morning. Events from the last 24 hours have been reviewed. The patient is currently afebrile, hemodynamically stable and maintaining appropriate oxygen saturations on room air. The patient never required the initiation of vasopressor support yesterday. She is documented to be overall net +4.5 L for the hospitalization. White blood cell count is normal. Hemoglobin is stable at 8.7 g/dL. Creatininehas improved to 1.46. Objective Data Objective Data The patient's most recent lab work, culture data and imaging studies have all been personally reviewed. Wound culture dated May 18 was positive for MRSA. Blood and urine cultures are pending. Vital Signs: Vital Signs Temp Pulse Resp BP Pulse Ox O2 Del Method O2 Flow Rate 98.4 F 74 11 L 118/46 L 94 Room Air 2 05/19/25 06:00 05/19/25 06:00 05/19/25 06:00 05/19/25 06:00 05/19/25 06:00 05/19/25 06:00 05/18/25 16:00 FiO2 96 05/18/25 08:00 Oxygen Flow Rate (L/min) 2 Oxygen Delivery Method Room Air Weight: 161 lb 6.054 oz Body Mass Index (BMI) 25.9 Intake & Output: Intake and Output for Last 24 Hours 05/17/25 05/18/25 05/19/25 23:59 23:59 23:59 Intake Total 5082.33 / 5442.33 360 / 360 Output Total 325 / 325 600 / 600 Balance 4757.33 / 5117.33 -240 / -240 Lab / Micro Data Attestation: I reviewed the patient's lab results. 05/19/25 06:21 05/19/25 06:21 Labs: Laboratory Results - last 24 hr 05/18/25 05:21: ESR 54 H, Hemoglobin A1c 7.6 H, Total Creatine Kinase 1008 H 05/18/25 07:40: Lactic Acid < 1.0 05/18/25 11:26: POC Glucose 93 05/18/25 16:15: POC Glucose 191 H 05/18/25 21:22: POC Glucose 195 H 05/19/25 06:21: WBC 5.8, RBC 2.98 L, Hgb 8.7 L, Hct 26.9 L, MCV 90.3, MCH 29.2, MCHC 32.3, RDW Std Deviation 52.0 H, RDW Coeff of Jorgito 15.7 H, Plt Count 148 L, MPV 11.2, Immature Gran % (Auto) 0.500, Neut % (Auto) 73.3 H, Lymph % (Auto) 13.7 L, Scurry % (Auto) 10.4 H, Eos % (Auto) 1.6, Baso % (Auto) 0.5, Absolute Neuts (auto) 4.2, Absolute Lymphs (auto) 0.79 L, Nucleated RBC % 0 Micro: Microbiology 05/18/25 04:00 Wound - Right Foot Gram Stain - Final 05/18/25 04:00 Wound - Right Foot Skin and Soft Tissue MRSA/MSSA (PCR - Final Meth. resistant Staph. aureus Radiography Diagnostic Testing: Radiology Impression Abdomen/Pelvis CT 05/18/25 07:26 IMPRESSION: Cholelithiasis, no CT evidence of acute cholecystitis Retained stool in the colon with scattered diverticula but no CT evidence of acute diverticulitis Bladder is distended but no wall thickening or pericystic inflammation noted. Findings could be a sign of bladder outlet issues. No hydronephrosis or hydroureter but the kidneys demonstrate nonspecifically prominent renal pelves Diffuse atherosclerotic calcifications Nonobstructing renal stones Uterus is present, the endometrium can not be accurately evaluated with CT. Degenerative bony changes Reading Location: [id number] Chest CTA 05/18/25 07:26 IMPRESSION: There is a 0.5 cm solid nodule in the right mid lung, image 131/244. There is a 0.4 cm solid nodule in the right mid lung, image 115/244. Follow-up is recommended. There is atelectasis with a trace effusion at the left lung base. There is no visible pulmonary embolus. Reading Location: [facility] Ankle X-Ray 05/18/25 13:30 IMPRESSION: Severe pes planus is again seen. Moderate arterial calcification is again noted. Prominent soft tissue swelling is seen over the lateral ankle. No osseous destructive changes seen to suggest the presence of osteomyelitis. No cortical or periosteal changes are identified. If clinical concern persists, consider further evaluation with nuclear medicine three-phase bone scan or other follow up imaging. Reading Location: [place] [address] Physical Exam Const alert, oriented x3 and no apparent distress HEENT normocephalic, head/scalp atraumatic and moist oral mucous membranes Eyes PERRL, EOMs intact bilaterally and conjunctivae normal Neck supple General: trachea midline Chest inspection of chest normal Resp normal respiratory effort Auscultation: diminished lung sounds; Negative for rales, rhonchi or wheezes Cardio regular rate, regular rhythm, S1 normal heart sound and S2 normal heart sound GI normal to inspection, nondistended, normoactive bowel sounds Extremity General Extremity: Negative for clubbing Skin Skin Narrative: Lower extremity foot wounds present on admission, currently wrapped Neuro CN's II-XII intact bilaterally, moves all extremities and no focal motor deficits Psych cooperative and affect normal Charges/Coding Visit Charges Inpatient E&M: 41222 Subs Hosp L2 05/19/25 0828 <Electronically signed by Jacinto Tamez DO> Cosigner Signature (if applicable): CC: ~ Signed [facility] Work Phone: [phone]) 208-170807-01-2025 Consult note Author Patel Irene [facility] Note Date/Time May 19, 2025 7:01a m [facility] Medical Records Department [address] [place] [address] Consultation 05/18/25 0659 MR#: [id number] Acct: [id number] Name: GELY NEWMAN Rep #:[id number] : 1950 75 From: Patel LOBO PCP: Dr. Rishi Vasquez DO Status:AD M IN Location: ICU CVICU20 1-1 Assessment & Plan Assessment/Plan (1) Type 2 diabetes mellitus with foot ulcer: PLAN: Patient was examined and evaluated. All findings were discussed with patient. All questions were answered to the patient satisfaction. Left lower extremity nonweightbearing radiographs. Bone stock is within normal limits for the patient his age. Evidence of loss of medial longitudinal arch with Charcot-like changes. Evidence of amputation to the lesser digits and fifth ray with partial amputation to the great toe. No soft tissue air or emphysema is noted. Degenerative changes are also appreciated throughout the lower extremity. No evidence of bone destruction or osteomyelitis. Patient shows evidence of multiple full-thickness wounds to the bilateral lower extremity which are stable with only concern with possible soft tissue infectionto the left medial ankle full-thickness wound. Patient is currently on IV antibiotics and shows great improvement. Due to the chronicity of the wounds wewill plan for surgical debridement in the OR with application of amniotic skin graft substitute to the bilateral lower extremity. Please clear medically with recommendations. Will plan for surgical intervention Sunday, we will organize time and date with the operating room. PVR (01/06/2025): Right JEFFREY 0.732, left JEFFREY 0.84. Medicine: On board, medical management, IV antibiotics Vanco/Zosyn Vascular surgery: Consult pending WBC: 6.3 HbA1c: Pending Glucose: 132 ESR: Pending CRP: Pending Urinalysis: Urine clarity: Cloudy Urine protein: 100 Urine ketones: 5 Urine occult blood: 250 Leukocytes esterase: 500 Will plan for surgical intervention Sunday (05/20/25) afternoon based on OR availability. Wound care on board, by the lower extremity full-thickness wounds will get Santyl applied nickel thick, moist gauze dry sterile dressing light compression wrap to the bilateral lower extremity. Multi-Podus boot to the left lower extremity will be done followed by offloading heel pad to the right lower extremity. Podiatry will continue to follow patient while she is in house. Thank you for the consultation! (2) Cellulitis of left ankle: (3) 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 foot with fat layer exposed: (4) Non-pressure chronic ulcer of other part of right foot with fat layer exposed: (5) Non-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: HPI Consult Data Date of Consult: 05/19/25 HPI Narrative Reason for Consultation: Left lower extremity full-thickness wound infection HPI Narrative: GELY NEWMAN, is a 75 F w/ PMHx: CAD, PAD s/p peripheral angioplasty, Diabetes mellitus type II with Chronic neuropathy, Anxiety and Depression, HTN, HLD, Former tobacco use, Chronic normocytic anemia/Fe deficiency anemia, CKD stage III unclear subtype per GFR trending, chronic bilateral lower extremity diabeticulcerations/wounds to the bilateral extremity. Patient is well-known to my office and has been treated conservatively with outpatient wound care. She is recently gone through revascularization by vascular surgery. She presented to the [facility] ED on 05/18/2025 with generalized weakness, fatigue, difficulty ambulating secondary weakness with fall the day prior when she was coming to the house at 11:15 AM unfortunately found later in the eveningpast 9 PM by her family eventually helped into a chair where she remained although she was able to get out of the chair in the morning and use the toilet but unfortunately was unable to even get up after this prompting EMS call with noted onset of fever reporting that she had recently started doxycycline oral antibiotic for erythema to the left foot wounds. Patient has been getting dressing changes per home health care and admits that the wounds are stable. She was ultimately admitted for the generalized weakness and urinary tract infection as well as concern for left lower extremity full-thickness wound beinginfected. Podiatry was consulted for wound care management and possible surgical intervention. She denies any constitutional symptoms at bedside today. No other pedal complaints at this time. [facility] Medical History (Updated 05/18/25 @ 16:[address] 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 Chronic painful diabetic polyneuropathy MRSA (methicillin resistant staph aureus) culture positive Depression Diabetes Back pain Vertigo History of pain when walking Hypertension Arthritis Wears dentures Post-menopausal Low iron High cholesterol Easy bruising Neuropathy Dietary restriction Former smoker Cardiology follow-up encounter History of torn meniscus of left knee Carotid artery stenosis Essential hypertension Skin lesion Hammer toe of left foot Osteomyelitis Chronic kidney disease, stage 3 Atherosclerosis of coronary artery of [place] heart without angina pectoris Hyperlipidemia Peripheral vascular occlusive disease Hammer toe of second toe of left foot Hallux valgus (acquired), right foot Healed ulcer of left foot on examination Chronic ulcer of left foot with fat layer exposed Delayed wound healing Malnutrition Osteomyelitis of foot 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 Methicillin resistant Staphylococcus aureus infection Chronic osteomyelitis of left foot Non-healing ulcer of right foot DM2 (diabetes mellitus, type 2) Home Medications ?Medication ?Instructions ?Recorded ?Last Taken ?Type aspirin 81 mg tablet,delayed 81 mg PO QHS blood clots 01/13/14 04/14/25 History release multivitamin with folic acid 400 1 tab PO DAILY Supple ment 01/13/14 11/14/16 History mcg tablet omega-3 fatty acids-fish oil 340 1 ea PO DAILY supplem ent 06/29/16 08/27/16 History mg-1,000 mg capsule ferrous sulfate 325 mg (65 mg 325 mg PO DAILY SUPPLEME NT 08/15/18 03/08/25 History iron) tablet ascorbic acid (vitamin C) 500 mg 1,000 mg PO LUNCH Sup plement 11/25/20 03/11/25 11:50 History tablet calcium carbonate (Calcium 600) 600 mg PO DAILY supple ment 12/29/21 Unknown History clopidogrel 75 mg tablet 75 mg PO DAILY Blood clots # 90 tabs 10/23/24 04/15/25 Rx Lactobacillus acidophilus 600 mg PO QDAY gi 03/07/25 0 03/11/25 09:00 History (Acidophilus capsule) pregabalin 100 mg capsule 100 mg PO TID nerve pain 03/11/25 11:50 History simvastatin 20 mg tablet 20 mg PO QHS cholesterol #30 tabs 03/23/25 Unknown Rx nystatin 100,000 unit/gram topical 1 applic topical BI D PRN rash 05/07/25 Unknown History powder ([facility]) acetaminophen 650 mg 650 mg PO Q12H PRN pain 04/20 Unknown History tablet,extended release amlodipine 5 mg tablet 5 mg PO DAILY HTN #90 tabs 0 05/12/25 Unknown Rx metoprolol succinate 25 mg 12.5 mg (1/2 x 25 mg) PO DA FABIAN 05/12/25 Unknown Rx tablet,extended release 24 hr HEART RATE #45 tabs glimepiride 2 mg tablet 2 mg PO BID 05/18/25 Unknown History Allergy/AdvReac Type Severity Reaction Status Date / Time Sulfa (Sulfonamide Allergy Unknown Verified 05/17/25 21:44 Antibiotics) Family History Father CAD (coronary artery disease) Heart disease Hypertension CVA (cerebral vascular accident) Mother COPD (chronic obstructive pulmonary disease) Hypertension Heart disease Heart failure Surgical History History of cardiac catheterization History of colonoscopy History of foot surgery History of repair of left rotator cuff History of total left knee replacement (~2014) History of angioplasty of peripheral vessel (~2012) amputation left toe History of left heart catheterization (~01/20/14) Social History household members: none Smoking Status: Former smoker how long ago did patient quit smokin years ago alcohol intake: never substance use type: does not use caffeine: No Physical Exam Narrative Vascular: DP and PT pulses are palpable bilateral lower extremity. CFT is brisk. Evidence of blanchable periwound erythema to the left ankle full-thickness wound. No evidence of erythema appreciated to the remaining wounds tothe bilateral lower extremity. Skin temperature great is warm to warm from proximal ankle to distal digit bilateral. No focal increase is present. Neurological: Light touch is intact. Protective station is absent. Dermatological: Evidence of full-thickness wound to left lower extremity at the level of the heel, medial ankle and distal lateral foot secondary to amputation. All wound bases are fibrogranular nature. Wounds are stable with no concern for infection. Evidence of full-thickness wound to the right lower extremity atthe level of the posterior lateral heel. Wound base is fibrogranular in nature. No erythema. No concern for infection. Musculoskeletal: No pain to palpation to the full-thickness wounds to the bilateral lower extremity. No pain with calf pressure. Const alert, oriented x3 and no apparent distress Lab / Micro Data 05/19/25 06:21 05/19/25 06:21 Labs: Laboratory Results - last 24 hr 05/17/25 21:53: WBC 7.1, RBC 3.07 L, Hgb 8.9 L, Hct 27.7 L, MCV 90.2, MCH 29.0, MCHC 32.1, RDW Std Deviation 50.8 H, RDW Coeff of Jorgito 15.3 H, Plt Count 162, MPV11.3, Immature Gran % (Auto) 0.600, Neut % (Auto) 80.8 H, Lymph % (Auto) 7.4 L, Scurry % (Auto) 10.6 H, Eos % (Auto) 0.0, Baso % (Auto) 0.6, Absolute Neuts (auto)5.7, Absolute Lymphs (auto) 0.52 L, Nucleated RBC % 0, Sodium 131 L, Potassium 4.7, Chloride 97 L, Carbon Dioxide 17.5 L, Anion Gap 16 H, BUN 78 H, Creatinine 1.96 H, Estim Creat Clear Calc 26.13 L, Est GFR (MDRD) Non-Af 27 L, BUN/Creatinine Ratio 39.9 H, Glucose 253 H, Calcium 9.2, Phosphorus 3.8, Magnesium 2.6 H, Total Bilirubin 0.45, AST 83 H, ALT 36 H, Alkaline Phosphatase 54, Total Creatine Kinase 1177 H, Total Protein 6.3, Albumin 2.9 L, Globulin 3.4, Albumin/Globulin Ratio 0.8 L 05/17/25 22:33: Lactic Acid < 1.0 05/18/25 00:50: Urine Color Yellow, Urine Clarity Cloudy, Urine pH 5.0, Ur Specific [place] 1.020, Urine Protein 100 H, Urine Glucose (UA) Normal, Urine Ketones 5 H, Urine Occult Blood 250 H, Urine Nitrite Negative, Urine Bilirubin Negative, Urine Urobilinogen Normal, Ur Leukocyte Esterase 500 H, Urine RBC 0 SEEN, Urine WBC >100 SEEN, Ur Squamous Epith Cells 0-5 SEEN, Urine Bacteria 3+, Urine Mucus 0 SEEN 05/18/25 05:21: WBC 6.3, RBC 2.93 L, Hgb 8.5 L, Hct 26.2 L, MCV 89.4, MCH 29.0, MCHC 32.4, RDW Std Deviation 50.2 H, RDW Coeff of Jorgito 15.2 H, Plt Count 158, MPV11.4, Immature Gran % (Auto) 0.500, Neut % (Auto) 76.2 H, Lymph % (Auto) 8.1 L, Scurry % (Auto) 14.6 H, Eos % (Auto) 0.3, Baso % (Auto) 0.3, Absolute Neuts (auto)4.8, Absolute Lymphs (auto) 0.51 L, Nucleated RBC % 0, PT 15.5 H, INR 2.2, APTT 46.3 H, Sodium 136, Potassium 3.7, Chloride 104, Carbon Dioxide 18.8 L, Anion Gap 13, BUN 69 H, Creatinine 1.74 H, Estim Creat Clear Calc 26.96 L, Est GFR (MDRD) Non-Af 31 L, BUN/Creatinine Ratio 39.9 H, Glucose 161 H, Calcium 9.1, Total Bilirubin 0.29, AST 70 H, ALT 33, Alkaline Phosphatase 47, Total Protein 5.5 L, Albumin 2.7 L, Globulin 2.8, Albumin/Globulin Ratio 1.0 05/18/25 06:18: POC Glucose 132 H Micro: Microbiology 05/18/25 04:00 Wound - Right Foot Skin and Soft Tissue MRSA/MSSA (PCR - Final Imaging Radiology Impression Chest X-Ray 05/17/25 22:35 IMPRESSION: No acute chest findings. Reading Location: [place] [address] Foot X-Ray 05/17/25 22:35 IMPRESSION: Possible osteoarthritis, 4th metatarsal head. Soft tissue swelling, without obvious soft tissue gas. Possible cellulitis. Reading Location: [place] [address] 05/19/25 0701 <Electronically signed by Patel Irene DPM> Cosigner Signature (if applicable): CC: Dr. Rishi Vasquez DO; Dr. Jerri Castillo DO~ Signed [facility] Work Phone: [phone]) 704-181706-30-2025 Progress note Author Michaela Joshua [facility] Note Date/Time May 18, 2025 4:24 pm [facility] Medical Records Department [address] [place] [address] Progress Note - Hospitalist 05/18/25 0714 MR#: [id number] Acct: [id number] Name: GELY NEWMAN Rep #:[id number] : 1950 75 From: Michaela Joshua DO PCP: Dr. Rishi Vasquez DO Status:AD M IN Location: ICU CVICU20 1- Reason for Visit Reason for Visit: Generalized weakness/debility Subjective Subjective Called early this morning as patient had developed hypotension. Appears to haveurinary tract related sepsis. Patient was transferred to the intensive care unit and treated with appropriate sepsis measures. Objective Data Objective Data Vital Signs: Vital Signs Temp Pulse Resp BP Pulse Ox O2 Del Method O2 Flow Rate 98.2 F 61 17 101/45 L 99 Nasal Cannula 4 05/18/25 07:05 05/18/25 07:05 05/18/25 07:05 05/18/25 07:05 05/18/25 07:05 05/18/25 07:05 05/18/25 07:05 Oxygen Flow Rate (L/min) 4 Oxygen Delivery Method Nasal Cannula Weight: 69.4 kg Body Mass Index (BMI) 24.5 Intake & Output: Intake and Output for Last 24 Hours 05/16/25 05/17/25 05/18/25 23:59 23:59 23:59 Intake Total 1250 / 1250 Balance 1250 / 1250 Lab / Micro Data 05/18/25 05:21 05/18/25 05:21 Labs: Laboratory Results - last 24 hr 05/17/25 21:53: WBC 7.1, RBC 3.07 L, Hgb 8.9 L, Hct 27.7 L, MCV 90.2, MCH 29.0, MCHC 32.1, RDW Std Deviation 50.8 H, RDW Coeff of Jorgito 15.3 H, Plt Count 162, MPV11.3, Immature Gran % (Auto) 0.600, Neut % (Auto) 80.8 H, Lymph % (Auto) 7.4 L, Scurry % (Auto) 10.6 H, Eos % (Auto) 0.0, Baso % (Auto) 0.6, Absolute Neuts (auto)5.7, Absolute Lymphs (auto) 0.52 L, Nucleated RBC % 0, Sodium 131 L, Potassium 4.7, Chloride 97 L, Carbon Dioxide 17.5 L, Anion Gap 16 H, BUN 78 H, Creatinine 1.96 H, Estim Creat Clear Calc 26.13 L, Est GFR (MDRD) Non-Af 27 L, BUN/Creatinine Ratio 39.9 H, Glucose 253 H, Calcium 9.2, Phosphorus 3.8, Magnesium 2.6 H, Total Bilirubin 0.45, AST 83 H, ALT 36 H, Alkaline Phosphatase 54, Total Creatine Kinase 1177 H, Total Protein 6.3, Albumin 2.9 L, Globulin 3.4, Albumin/Globulin Ratio 0.8 L 05/17/25 22:33: Lactic Acid < 1.0 05/18/25 00:50: Urine Color Yellow, Urine Clarity Cloudy, Urine pH 5.0, Ur Specific [place] 1.020, Urine Protein 100 H, Urine Glucose (UA) Normal, Urine Ketones 5 H, Urine Occult Blood 250 H, Urine Nitrite Negative, Urine Bilirubin Negative, Urine Urobilinogen Normal, Ur Leukocyte Esterase 500 H, Urine RBC 0 SEEN, Urine WBC >100 SEEN, Ur Squamous Epith Cells 0-5 SEEN, Urine Bacteria 3+, Urine Mucus 0 SEEN 05/18/25 05:21: WBC 6.3, RBC 2.93 L, Hgb 8.5 L, Hct 26.2 L, MCV 89.4, MCH 29.0, MCHC 32.4, RDW Std Deviation 50.2 H, RDW Coeff of Jorgito 15.2 H, Plt Count 158, MPV11.4, Immature Gran % (Auto) 0.500, Neut % (Auto) 76.2 H, Lymph % (Auto) 8.1 L, Scurry % (Auto) 14.6 H, Eos % (Auto) 0.3, Baso % (Auto) 0.3, Absolute Neuts (auto)4.8, Absolute Lymphs (auto) 0.51 L, Nucleated RBC % 0, PT 15.5 H, INR 2.2, APTT 46.3 H, Sodium 136, Potassium 3.7, Chloride 104, Carbon Dioxide 18.8 L, Anion Gap 13, BUN 69 H, Creatinine 1.74 H, Estim Creat Clear Calc 26.96 L, Est GFR (MDRD) Non-Af 31 L, BUN/Creatinine Ratio 39.9 H, Glucose 161 H, Calcium 9.1, Total Bilirubin 0.29, AST 70 H, ALT 33, Alkaline Phosphatase 47, Total Protein 5.5 L, Albumin 2.7 L, Globulin 2.8, Albumin/Globulin Ratio 1.0 05/18/25 06:18: POC Glucose 132 H Micro: Microbiology 05/18/25 04:00 Wound - Right Foot Skin and Soft Tissue MRSA/MSSA (PCR - Final Radiography Diagnostic Testing: Radiology Impression Chest X-Ray 05/17/25 22:35 IMPRESSION: No acute chest findings. Reading Location: [facility] Foot X-Ray 05/17/25 22:35 IMPRESSION: Possible osteoarthritis, 4th metatarsal head. Soft tissue swelling, without obvious soft tissue gas. Possible cellulitis. Reading Location: [facility] Assessment & Plan Assessment/Plan (1) Non-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: (2) 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 foot with fat layer exposed: (3) Non-pressure chronic ulcer of other part of right foot with fat layer exposed: (4) Sepsis: (5) Acute UTI: (6) Acute hypoxic respiratory failure: PLAN: Plan Sepsis secondary to suspected urinary tract infection - UA is markedly abnormal - Patient developed hypotension after she received antibiotics, has a bicarb lower than 20, developed SHAYY - Did not meet sepsis criteria at the time of admission - Suspect hypotension after antibiotics was related to bacterial lysis and precipitation of SIRS response - Fluid bolus given at 30 cc/kg body weight and patient was fluid responsive - Lactate was initially normal - Cultures are pending - Continue broad-spectrum antibiotics with vancomycin and Zosyn - CT of the abdomen pelvis performed without contrast to assess for any renal abnormalities or calculi/hydronephrosis/pyelonephritis that may need intervention due to the fact she developed sepsis - No significant abnormalities were noted SHAYY - Most recent baseline serum creatinine is between 0.9 and 1.1 next-on presentation serum creatinine is 1.96 - Fluid boluses as noted above - Avoid nephrotoxins as able - Continue IV fluids as ordered Acute hypoxic respiratory failure - Patient desatted and required 4 L nasal cannula - Highly suspect this is related to SIRS response and sepsis however we did obtain a CTA to rule out PE given immobility at baseline - Scheduled and as needed nebulizers - Continue supplemental oxygen and wean as able Peripheral vascular disease with bilateral lower extremity ulceration and wounds - Vascular surgery is following - Wounds are stable and do not appear to be the etiology of her sepsis - Plan is for revascularization next Sunday as long as she is medically stable - May go home and come back as an outpatient if medically stable for discharge prior to this - Continue aspirin and Plavix Diabetic foot ulcer bilateral lower extremities - Wounds overall appear stable - will continue antibiotic regimen - Podiatry is following and plans for some debridement on Sunday afternoon - Outpatient plan for revascularization is next Sunday as noted above - Cultures are pending - Patient does have a millimeter history of MRSA Acute rhabdomyolysis - Mild with initial CK of 1177 - IV fluids per sepsis - Repeat CK in a.m. Mild transaminitis - Suspect related to sepsis - Repeat lab in a.m. Acute hypovolemic hyponatremia - IV fluids as noted above - Repeat lab in a.m. CAD/essential hypertension/hyperlipidemia - Hold home antihypertensives due to hypotension - Will hold atorvastatin now due to elevated LFTs but reinitiate if stable or downtrend - Continue home aspirin - Continue Plavix Chronic normocytic anemia secondary to iron deficiency - Hemoglobin appears to be stable -continue home iron supplementation and vitamin C supplementation which will assist with iron absorption COPD with history of tobacco use - Continue aerosols as ordered Anxiety/depression - Patient currently is not on any medication for this DVT prophylaxis - Start heparin 3 times daily CODE STATUS -Full code is verified on admission Sepsis Attestation Sepsis Alert: Yes Sepsis Attestation: Agree w/Sepsis Date exam was performed: 05/18/25 Time exam was performed: 07:15 Possible Source of Sepsis: Genitourinary and Skin/soft tissue Sepsis Organ Dysfunction Criteria Present: SBP < 90 mmHg or MAP < 65 mmHg and PaO2/FiO2 ratio < 300 Fluid Resuscitation Fluid resuscitation indicated?: Yes Fluid Resuscitation ordered: 30 ml/kg fluid bolus ordered Amount of fluid ordered: 2,500 Sepsis Note Date exam was performed: 05/18/25 Time exam was performed: 09:13 Sepsis Attestation: Sepsis re-evaluation was performed Response to fluids: Fluid responsive hypotension 05/18/25 1624 <Electronically signed by Michaela Joshua DO> Cosigner Signature (if applicable): CC: ~ Signed [facility] Work Phone: 1(245) 582-824106-30-2025 Consult note Author Russell Clement [facility] Note Date/Time May 18, 2025 1:07 pm [facility] Medical Records Department [address] [place] [address] Consultation - Surgical 05/18/25 1257 MR#: [id number] Acct: [id number] Name: GELY NEWMAN Rep #:[id number] : 1950 75 From: Russell Clement MD PCP: Dr. Rishi Vasquez, DO Status:AD M IN Location: ICU CVICU20 1-[address] Russell Clement MD on 05/18/25 at 1307 Visit Charges Inpatient E&M: 94720 Init Hosp L3 05/18/25 1307<Electronically signed by Russell Clement MD> Cosigner Signature (if applicable): cc: Dr. Rishi Vasquez, DO; Dr. Jerri Castillo, DO ~* Signed Assessment & Plan Assessment/Plan (1) 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: QUALIFIERS: Peripheral atherosclerosis artery type: [place] artery Lower extremity ulceration location: midfoot Qualified Code(s): I70.234 - Atherosclerosis of [place] arteries of right leg with ulceration of heel and midfoot; I70.244 - Atherosclerosis of [place] arteries of left leg with ulceration of heel and midfoot PLAN: -wounds stable and do not appear to be etiology of sepsis -u/a positive, culture pending -plan remains for open revasc next Sunday HPI Consult Data Date of Consult: 05/18/25 HPI Narrative HPI Narrative: GELY NEWMAN, is a 75 F who presents with fall from standing, unable to get up for several hours. Found to have UTI. She is known to vascular with plans for staged bilateral lower extremity open revascularization with LLE scheduled for next Sunday. Her wounds appear stable and without obvious infection at this time. She has been evaluated by Dr. Irene with plans to debride later this admission. She denies F/C/N/V/dysuria; in fact prior to her fall she felt at [facility]. [facility] Medical History (Updated 05/18/25 @ 13:[address] 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 Chronic painful diabetic polyneuropathy MRSA (methicillin resistant staph aureus) culture positive Depression Diabetes Back pain Vertigo History of pain when walking Hypertension Arthritis Wears dentures Post-menopausal Low iron High cholesterol Easy bruising Neuropathy Dietary restriction Former smoker Cardiology follow-up encounter History of torn meniscus of left knee Carotid artery stenosis Essential hypertension Skin lesion Hammer toe of left foot Osteomyelitis Chronic kidney disease, stage 3 Atherosclerosis of coronary artery of [place] heart without angina pectoris Hyperlipidemia Peripheral vascular occlusive disease Hammer toe of second toe of left foot Hallux valgus (acquired), right foot Healed ulcer of left foot on examination Chronic ulcer of left foot with fat layer exposed Delayed wound healing Malnutrition Osteomyelitis of foot 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 Methicillin resistant Staphylococcus aureus infection Chronic osteomyelitis of left foot Non-healing ulcer of right foot DM2 (diabetes mellitus, type 2) Home Medications ?Medication ?Instructions ?Recorded ?Last Taken ?Type aspirin 81 mg tablet,delayed 81 mg PO QHS blood clots 01/13/14 04/14/25 History release multivitamin with folic acid 400 1 tab PO DAILY Supple ment 01/13/14 11/14/16 History mcg tablet omega-3 fatty acids-fish oil 340 1 ea PO DAILY supplem ent 06/29/16 08/27/16 History mg-1,000 mg capsule ferrous sulfate 325 mg (65 mg 325 mg PO DAILY SUPPLEME NT 08/15/18 03/08/25 History iron) tablet ascorbic acid (vitamin C) 500 mg 1,000 mg PO LUNCH Sup plement 11/25/20 03/11/25 11:50 History tablet calcium carbonate (Calcium 600) 600 mg PO DAILY supple ment 12/29/21 Unknown History clopidogrel 75 mg tablet 75 mg PO DAILY Blood clots # 90 tabs 10/23/24 04/15/25 Rx Lactobacillus acidophilus 600 mg PO QDAY gi 03/07/25 0 03/11/25 09:00 History (Acidophilus capsule) pregabalin 100 mg capsule 100 mg PO TID nerve pain 03/11/25 11:50 History simvastatin 20 mg tablet 20 mg PO QHS cholesterol #30 tabs 03/23/25 Unknown Rx nystatin 100,000 unit/gram topical 1 applic topical BI D PRN rash 05/07/25 Unknown History powder (Nyamyc) acetaminophen 650 mg 650 mg PO Q12H PRN pain 04/20 Unknown History tablet,extended release amlodipine 5 mg tablet 5 mg PO DAILY HTN #90 tabs 0 05/12/25 Unknown Rx metoprolol succinate 25 mg 12.5 mg (1/2 x 25 mg) PO DA FABIAN 05/12/25 Unknown Rx tablet,extended release 24 hr HEART RATE #45 tabs glimepiride 2 mg tablet 2 mg PO BID 05/18/25 Unknown History Allergy/AdvReac Type Severity Reaction Status Date / Time Sulfa (Sulfonamide Allergy Unknown Verified 05/17/25 21:44 Antibiotics) Family History Father CAD (coronary artery disease) Heart disease Hypertension CVA (cerebral vascular accident) Mother COPD (chronic obstructive pulmonary disease) Hypertension Heart disease Heart failure Surgical History History of cardiac catheterization History of colonoscopy History of foot surgery History of repair of left rotator cuff History of total left knee replacement (~2014) History of angioplasty of peripheral vessel (~2012) amputation left toe History of left heart catheterization (~01/20/14) Social History household members: none Smoking Status: Former smoker how long ago did patient quit smokin years ago alcohol intake: never substance use type: does not use caffeine: No ROS Constitutional Constitutional: Reports weakness; Denies chills, fever(s), frequent falls or lethargy Eyes Eyes: Denies blind spots, change in vision or loss of vision ENT HEENT: Denies bleeding gums, hoarseness or sore throat Cardiovascular Cardiovascular: Reports weakness in extremities; Denies abdominal pain, bluish discoloration of hand/feet, chest pain with activity, claudication, cold extremities, cyanosis, dyspnea on exertion, erythema on extremities, irregular heart rhythm, leg edema or numbness in extremities Respiratory/Chest Respiratory/Chest: Denies cough, excessive phlegm production, shortness of breath at rest, shortness of breath with exertion or wheezing Gastrointestinal Gastrointestinal: Denies anorexia, change in stool character, constipation, diarrhea, melena or rectal bleeding Genitourinary Genitourinary: Denies dysuria or hematuria Musculoskeletal Musculoskeletal: Denies abnormal gait Integumentary Integumentary: Reports non-healing lesions and wounds; Denies erythema Neurologic Neurologic: Denies abnormal speech, focal weakness, headache(s), loss of vision,numbness, paresthesias or sensory deficit Hematologic/Lymphatic Hematologic/Lymphatic: Denies easy bleeding, easy bruising or lymphadenopathy Physical Exam Const alert, oriented x3 and no apparent distress General Appearance: cooperative and ill appearing Positive for chronically; Negative for combative or lethargic Orientation / Consciousness: awake Exam Limitations: no limitations HEENT Head and Scalp: normocephalic and atraumatic Eyes EOMs intact bilaterally General Eye: normal appearance of both eyes Neck full ROM General: trachea midline Resp normal respiratory effort and no use of accessory muscles Effort and Inspection: Negative for labored, stridor or audible wheezes Cardio regular rate and regular rhythm Peripheral Pulses: brachial pulses present, radial pulses present and femoral pulses present; Negative for popliteal pulses present, posterior tibial pulses present or dorsalis pedis pulses present Back/Spine Cervical Spine: cervical ROM normal Extremity full ROM, normal capillary refill and no clubbing, cyanosis or edema Skin no rashes or lesions noted Wounds: wounds noted Wound Narrative: wound care photos reviewed Neuro oriented x3, CN's II-XII intact bilaterally, no focal motor deficits and no sensory deficits noted Psych thought process normal, cooperative, affect normal, speech normal and activity/motor behavior normal Lab / Micro Data 05/18/25 05:21 05/18/25 05:21 Labs: Laboratory Results - last 24 hr 05/17/25 21:53: WBC 7.1, RBC 3.07 L, Hgb 8.9 L, Hct 27.7 L, MCV 90.2, MCH 29.0, MCHC 32.1, RDW Std Deviation 50.8 H, RDW Coeff of Jorgito 15.3 H, Plt Count 162, MPV11.3, Immature Gran % (Auto) 0.600, Neut % (Auto) 80.8 H, Lymph % (Auto) 7.4 L, Scurry % (Auto) 10.6 H, Eos % (Auto) 0.0, Baso % (Auto) 0.6, Absolute Neuts (auto)5.7, Absolute Lymphs (auto) 0.52 L, Nucleated RBC % 0, Sodium 131 L, Potassium 4.7, Chloride 97 L, Carbon Dioxide 17.5 L, Anion Gap 16 H, BUN 78 H, Creatinine 1.96 H, Estim Creat Clear Calc 26.13 L, Est GFR (MDRD) Non-Af 27 L, BUN/Creatinine Ratio 39.9 H, Glucose 253 H, Calcium 9.2, Phosphorus 3.8, Magnesium 2.6 H, Total Bilirubin 0.45, AST 83 H, ALT 36 H, Alkaline Phosphatase 54, Total Creatine Kinase 1177 H, Total Protein 6.3, Albumin 2.9 L, Globulin 3.4, Albumin/Globulin Ratio 0.8 L 05/17/25 22:33: Lactic Acid < 1.0 05/18/25 00:50: Urine Color Yellow, Urine Clarity Cloudy, Urine pH 5.0, Ur Specific [place] 1.020, Urine Protein 100 H, Urine Glucose (UA) Normal, Urine Ketones 5 H, Urine Occult Blood 250 H, Urine Nitrite Negative, Urine Bilirubin Negative, Urine Urobilinogen Normal, Ur Leukocyte Esterase 500 H, Urine RBC 0 SEEN, Urine WBC >100 SEEN, Ur Squamous Epith Cells 0-5 SEEN, Urine Bacteria 3+, Urine Mucus 0 SEEN 05/18/25 05:21: WBC 6.3, RBC 2.93 L, Hgb 8.5 L, Hct 26.2 L, MCV 89.4, MCH 29.0, MCHC 32.4, RDW Std Deviation 50.2 H, RDW Coeff of Jorgito 15.2 H, Plt Count 158, MPV11.4, Immature Gran % (Auto) 0.500, Neut % (Auto) 76.2 H, Lymph % (Auto) 8.1 L, Scurry % (Auto) 14.6 H, Eos % (Auto) 0.3, Baso % (Auto) 0.3, Absolute Neuts (auto)4.8, Absolute Lymphs (auto) 0.51 L, Nucleated RBC % 0, ESR 54 H, PT 15.5 H, INR 2.2, APTT 46.3 H, Sodium 136, Potassium 3.7, Chloride 104, Carbon Dioxide 18.8 L, Anion Gap 13, BUN 69 H, Creatinine 1.74 H, Estim Creat Clear Calc 26.96 L, EstGFR (MDRD) Non- Af 31 L, BUN/Creatinine Ratio 39.9 H, Glucose 161 H, Hemoglobin A1c 7.6 H, Calcium 9.1, Total Bilirubin 0.29, AST 70 H, ALT 33, Alkaline Phosphatase 47, Total Creatine Kinase 1008 H, Total Protein 5.5 L, Albumin 2.7 L, Globulin 2.8, Albumin/Globulin Ratio 1.0 05/18/25 06:18: POC Glucose 132 H 05/18/25 07:40: Lactic Acid < 1.0 05/18/25 11:26: POC Glucose 93 Micro: Microbiology 05/18/25 04:00 Wound - Right Foot Gram Stain - Final 05/18/25 04:00 Wound - Right Foot Skin and Soft Tissue MRSA/MSSA (PCR - Final Meth. resistant Staph. aureus Imaging Radiology Impression Chest X-Ray 05/17/25 22:35 IMPRESSION: No acute chest findings. [facility] Foot X-Ray 05/17/25 22:35 IMPRESSION: Possible osteoarthritis, 4th metatarsal head. Soft tissue swelling, without obvious soft tissue gas. Possible cellulitis. [facility] Abdomen/Pelvis CT 05/18/25 07:26 IMPRESSION: Cholelithiasis, no CT evidence of acute cholecystitis Retained stool in the colon with scattered diverticula but no CT evidence of acute diverticulitis Bladder is distended but no wall thickening or pericystic inflammation noted. Findings could be a sign of bladder outlet issues. No hydronephrosis or hydroureter but the kidneys demonstrate nonspecifically prominent renal pelves Diffuse atherosclerotic calcifications Nonobstructing renal stones Uterus is present, the endometrium can not be accurately evaluated with CT. Degenerative bony changes Reading Location: [id number] Chest CTA 05/18/25 07:26 IMPRESSION: There is a 0.5 cm solid nodule in the right mid lung, image 131/244. There is a 0.4 cm solid nodule in the right mid lung, image 115/244. Follow-up is recommended. There is atelectasis with a trace effusion at the left lung base. There is no visible pulmonary embolus. Reading Location: [facility] 05/18/25 1306 <Electronically signed by Russell Clement MD> Cosigner Signature (if applicable): CC: Dr. Rishi Vasquez, DO; Dr. Jerri Castillo, DO~ Signed [facility] Work Phone: 1(356) 208-370606-30-2025 Radiology [facility] Consult note Author Jacinto Tamez [facility] Note Date/Time May 18, 2025 12:3 4pm [facility] Medical Records Department [address] [place] [address] Consultation - Flight Engineer Inspector 05/18/25 0827 MR#: [id number] Acct: [id number] Name: GELY NEWMAN Rep #:[id number] : 1950 75 From: Jacinto Tamez DO PCP: Dr. Rishi Vasquez, DO Status:AD M IN Location: ICU CVICU20 1-1 Assessment & Plan Assessment/Plan (1) Acute UTI: PLAN: Plan RECOMMENDATIONS: 1. Fluid resuscitation per sepsis protocol. 2. Follow-up lactate. 3. Empiric antimicrobials, pending culture results. ID consultation is pending. 4. Encourage incentive spirometer use and mobilize patient as tolerated. 5. Continue to wean supplemental oxygen to maintain saturations at or above 90%. IMPRESSIONS: 1. Sepsis The patient presented with sepsis due to probable UTI with acute sepsis related organ dysfunction as evidenced by persistent hypotension with a MAP of less than65 and/or systolic blood pressure less than 90 mmHg. The patient did receive supplemental IV fluid hydration with appropriate response, hemodynamically. Given her normal lactate level, recommend targeting a systolic pressure at or above 90 mmHg. At the present time, the patient is without need for vasopressorsupport. She will be continued on antimicrobial therapy per infectious diseasesrecommendations. Podiatry is following regarding the patient's lower extremity foot wounds. 2. Acute on chronic kidney disease Most likely prerenal in etiology. Creatinine is improving with volume expansion. Continue to monitor urine output for now. No current indication forrenal replacement therapy. 3. 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 Continue to wean supplemental oxygen to maintain saturations at or above 90%. 4. History of peripheral arterial disease/coronary artery disease/diabetes mellitus/hypertension/hyperlipidemia/anemia Complicates care, management, recovery and prognosis. Continue supportive measures as noted above. This note was generated with Flypaperation software. It may contain incorrectwords, spelling, and punctuation that were not noted in checking the note beforesigning. HPI Consult Data Date of Consult: 05/18/25 HPI Narrative Reason for Consultation: Sepsis HPI Narrative: The patient is a 75-year-old female, with a history as outlined below, who presented to the emergency department on May 18 with generalized malaise and weakness. The patient has a known history of coronary artery disease, peripheral arterial disease, diabetes mellitus, chronic tobacco dependency in remission, chronic kidney disease and anemia. The patient has never been evaluated by a consumer attorney, nor has she ever been formally diagnosed with COPD. She does not utilize inhalers at her baseline. In addition, the patient reported that she does not utilize supplemental oxygen at her baseline. On presentation to the emergency department, the patient was noted to be febrileand tachypneic. She was otherwise hemodynamically stable and maintaining appropriate oxygen saturations on room air. Laboratory evaluation revealed a normal white blood cell count. Hemoglobin was low at 8.9 g/dL. Platelet count was within normal limits. Chemistry profile was notable for a sodium of 131, BUN of 78 and creatinine of 1.96. Lactate was within normal limits. Total bilirubin was normal at 0.45. Urine analysis was positive for leukocyte esterase and 3+ urine bacteria. Chest x-ray demonstrated no acute cardiopulmonary process. The patient was ultimately admitted to the hospital with concern for an infected left lower extremity diabetic ulcer and acute urinary tract source of infection. Consultation was placed to podiatry and vascular surgery. The patient was initiated on antimicrobials. Overnight, the patient developed worsening hypotension and hypoxemia, which ultimately resulted in her transfer to the ICU. [facility] Medical History (Updated 05/18/25 @ 07:[address] 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 Chronic painful diabetic polyneuropathy MRSA (methicillin resistant staph aureus) culture positive Depression Diabetes Back pain Vertigo History of pain when walking Hypertension Arthritis Wears dentures Post-menopausal Low iron High cholesterol Easy bruising Neuropathy Dietary restriction Former smoker Cardiology follow-up encounter History of torn meniscus of left knee Carotid artery stenosis Essential hypertension Skin lesion Hammer toe of left foot Osteomyelitis Chronic kidney disease, stage 3 Atherosclerosis of coronary artery of [place] heart without angina pectoris Hyperlipidemia Peripheral vascular occlusive disease Hammer toe of second toe of left foot Hallux valgus (acquired), right foot Healed ulcer of left foot on examination Chronic ulcer of left foot with fat layer exposed Delayed wound healing Malnutrition Osteomyelitis of foot 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 Methicillin resistant Staphylococcus aureus infection Chronic osteomyelitis of left foot Non-healing ulcer of right foot DM2 (diabetes mellitus, type 2) Home Medications ?Medication ?Instructions ?Recorded ?Last Taken ?Type aspirin 81 mg tablet,delayed 81 mg PO QHS blood clots 01/13/14 04/14/25 History release multivitamin with folic acid 400 1 tab PO DAILY Supple ment 01/13/14 11/14/16 History mcg tablet omega-3 fatty acids-fish oil 340 1 ea PO DAILY supplem ent 06/29/16 08/27/16 History mg-1,000 mg capsule ferrous sulfate 325 mg (65 mg 325 mg PO DAILY SUPPLEME NT 08/15/18 03/08/25 History iron) tablet ascorbic acid (vitamin C) 500 mg 1,000 mg PO LUNCH Sup plement 11/25/20 03/11/25 11:50 History tablet calcium carbonate (Calcium 600) 600 mg PO DAILY supple ment 12/29/21 Unknown History clopidogrel 75 mg tablet 75 mg PO DAILY Blood clots # 90 tabs 10/23/24 04/15/25 Rx Lactobacillus acidophilus 600 mg PO QDAY gi 03/07/25 0 03/11/25 09:00 History (Acidophilus capsule) pregabalin 100 mg capsule 100 mg PO TID nerve pain 03/11/25 11:50 History simvastatin 20 mg tablet 20 mg PO QHS cholesterol #30 tabs 03/23/25 Unknown Rx nystatin 100,000 unit/gram topical 1 applic topical BI D PRN rash 05/07/25 Unknown History powder (Nyamyc) acetaminophen 650 mg 650 mg PO Q12H PRN pain 2 Unknown History tablet,extended release amlodipine 5 mg tablet 5 mg PO DAILY HTN #90 tabs 0 05/12/25 Unknown Rx metoprolol succinate 25 mg 12.5 mg (1/2 x 25 mg) PO DA FABIAN 05/12/25 Unknown Rx tablet,extended release 24 hr HEART RATE #45 tabs glimepiride 2 mg tablet 2 mg PO BID 05/18/25 Unknown History Allergy/AdvReac Type Severity Reaction Status Date / Time Sulfa (Sulfonamide Allergy Unknown Verified 05/17/25 21:44 Antibiotics) Family History Father CAD (coronary artery disease) Heart disease Hypertension CVA (cerebral vascular accident) Mother COPD (chronic obstructive pulmonary disease) Hypertension Heart disease Heart failure Surgical History History of cardiac catheterization History of colonoscopy History of foot surgery History of repair of left rotator cuff History of total left knee replacement (~2014) History of angioplasty of peripheral vessel (~2012) amputation left toe History of left heart catheterization (~01/20/14) Social History household members: none Smoking Status: Former smoker how long ago did patient quit smokin years ago alcohol intake: never substance use type: does not use caffeine: No ROS ROS Narrative 10 systems were reviewed with pertinent positives as noted in the HPI above. Physical Exam Const Constitutional Narrative: Lethargic but arouses easily to verbal stimulation. General Appearance: lethargic and ill appearing HEENT normocephalic and head/scalp atraumatic Eyes PERRL, EOMs intact bilaterally and conjunctivae normal Neck supple General: trachea midline Chest inspection of chest normal Resp normal respiratory effort Auscultation: diminished lung sounds; Negative for rales, rhonchi or wheezes Cardio S1 normal heart sound and S2 normal heart sound Rate: tachycardic GI normal to inspection, nondistended, normoactive bowel sounds Extremity General Extremity: Negative for clubbing Skin Skin Narrative: Lower extremity foot wounds present on admission, currently wrapped Neuro CN's II-XII intact bilaterally and no focal motor deficits Psych Mood & Affect: flat affect Lab / Micro Data 05/18/25 05:21 05/18/25 05:21 Labs: Laboratory Results - last 24 hr 05/17/25 21:53: WBC 7.1, RBC 3.07 L, Hgb 8.9 L, Hct 27.7 L, MCV 90.2, MCH 29.0, MCHC 32.1, RDW Std Deviation 50.8 H, RDW Coeff of Jorgito 15.3 H, Plt Count 162, MPV11.3, Immature Gran % (Auto) 0.600, Neut % (Auto) 80.8 H, Lymph % (Auto) 7.4 L, Scurry % (Auto) 10.6 H, Eos % (Auto) 0.0, Baso % (Auto) 0.6, Absolute Neuts (auto)5.7, Absolute Lymphs (auto) 0.52 L, Nucleated RBC % 0, Sodium 131 L, Potassium 4.7, Chloride 97 L, Carbon Dioxide 17.5 L, Anion Gap 16 H, BUN 78 H, Creatinine 1.96 H, Estim Creat Clear Calc 26.13 L, Est GFR (MDRD) Non-Af 27 L, BUN/Creatinine Ratio 39.9 H, Glucose 253 H, Calcium 9.2, Phosphorus 3.8, Magnesium 2.6 H, Total Bilirubin 0.45, AST 83 H, ALT 36 H, Alkaline Phosphatase 54, Total Creatine Kinase 1177 H, Total Protein 6.3, Albumin 2.9 L, Globulin 3.4, Albumin/Globulin Ratio 0.8 L 05/17/25 22:33: Lactic Acid < 1.0 05/18/25 00:50: Urine Color Yellow, Urine Clarity Cloudy, Urine pH 5.0, Ur Specific [place] 1.020, Urine Protein 100 H, Urine Glucose (UA) Normal, Urine Ketones 5 H, Urine Occult Blood 250 H, Urine Nitrite Negative, Urine Bilirubin Negative, Urine Urobilinogen Normal, Ur Leukocyte Esterase 500 H, Urine RBC 0 SEEN, Urine WBC >100 SEEN, Ur Squamous Epith Cells 0-5 SEEN, Urine Bacteria 3+, Urine Mucus 0 SEEN 05/18/25 05:21: WBC 6.3, RBC 2.93 L, Hgb 8.5 L, Hct 26.2 L, MCV 89.4, MCH 29.0, MCHC 32.4, RDW Std Deviation 50.2 H, RDW Coeff of [place]org[place] 15.2 H, Plt Count 158, MPV11.4, Immature Gran % (Auto) 0.500, Neut % (Auto) 76.2 H, Lymph % (Auto) 8.1 L, Scurry % (Auto) 14.6 H, Eos % (Auto) 0.3, Baso % (Auto) 0.3, Absolute Neuts (auto)4.8, Absolute Lymphs (auto) 0.51 L, Nucleated RBC % 0, ESR 54 H, PT 15.5 H, INR 2.2, APTT 46.3 H, Sodium 136, Potassium 3.7, Chloride 104, Carbon Dioxide 18.8 L, Anion Gap 13, BUN 69 H, Creatinine 1.74 H, Estim Creat Clear Calc 26.96 L, EstGFR (MDRD) Non- Af 31 L, BUN/Creatinine Ratio 39.9 H, Glucose 161 H, Calcium 9.1,Total Bilirubin 0.29, AST 70 H, ALT 33, Alkaline Phosphatase 47, Total Protein 5.5 L, Albumin 2.7 L, Globulin 2.8, Albumin/Globulin Ratio 1.0 05/18/25 06:18: POC Glucose 132 H 05/18/25 07:40: Lactic Acid < 1.0 Micro: Microbiology 05/18/25 04:00 Wound - Right Foot Skin and Soft Tissue MRSA/MSSA (PCR - Final Meth. resistant Staph. aureus Imaging Radiology Impression Chest X-Ray 05/17/25 22:35 IMPRESSION: No acute chest findings. Reading Location: [facility] 05/17/25 22:35 IMPRESSION: Possible osteoarthritis, 4th metatarsal head. Soft tissue swelling, without obvious soft tissue gas. Possible cellulitis. Reading Location: [facility] Sepsis Attestation Sepsis Alert: Yes Sepsis Attestation: Agree w/Sepsis Date exam was performed: 05/18/25 Time exam was performed: 08:58 Sepsis Organ Dysfunction Criteria Present: SBP < 90 mmHg or MAP < 65 mmHg Fluid Resuscitation Fluid resuscitation indicated?: Yes Fluid Resuscitation ordered: 30 ml/kg fluid bolus ordered Sepsis Note Date exam was performed: 05/18/25 Time exam was performed: 09:56 Sepsis Attestation: Sepsis re-evaluation was performed Response to fluids: Fluid responsive hypotension Charges/Coding Visit Charges Inpatient E&M: 14952 Init Hosp L3 05/18/25 1234 <Electronically signed by Jacinto Tamez DO> Cosigner Signature (if applicable): CC: Dr. Rishi Vasquez DO; Dr. Jerri Castillo DO~ Signed [facility] Work Phone: 1(657) 666-484106-30-2025 Consult note Author Jason Polk [facility] Note Date/Time May 18, 2025 12:3 3pm [facility] Medical Records Department [address] [place] [address] Consultation - Infectious Dx 05/18/25 1227 MR#: [id number] Acct: [id number] Name: GELY NEWMAN Rep #:[id number] : 1950 75 From: Jason Polk MD PCP: Dr. Rishi Vasquez, DO Status:AD M IN Location: ICU CVICU20 1-1 Assessment & Plan Assessment/Plan (1) Type 2 diabetes mellitus with foot ulcer: PLAN: Patient has MRSA isolated from the foot wound. Given her multiple comorbidities and underlying renal disease, I will switch her antimicrobial therapy to linezolid 600 mg twice a day. I will avoid parenteral vancomycin given the risk of nephrotoxicity. HPI Consult Data Date of Consult: 05/18/25 HPI Narrative Reason for Consultation: Diabetic foot wounds HPI Narrative: GELY NEWMAN, is a 75 F who presents multiple comorbidities including diabetes mellitus complicated by diabetic foot ulcers, peripheral vascular disease, chronic renal disease who was admitted roughly 24 to 48 hours ago with generalized weakness and recurrent falls at home. Patient is managed on broad-spectrum antimicrobial therapy for vancomycin plus Zosyn. Patient did have fever shortly after admission. Blood cultures are pending. Wound culture of the foot growing MRSA. Patient does have underlying renal insufficiency. Chestx-ray unremarkable. Pulmonary/critical care note reviewed. Denies any gastrointestinal distress. [facility] Medical History (Updated 05/18/25 @ 07:[address] 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 Chronic painful diabetic polyneuropathy MRSA (methicillin resistant staph aureus) culture positive Depression Diabetes Back pain Vertigo History of pain when walking Hypertension Arthritis Wears dentures Post-menopausal Low iron High cholesterol Easy bruising Neuropathy Dietary restriction Former smoker Cardiology follow-up encounter History of torn meniscus of left knee Carotid artery stenosis Essential hypertension Skin lesion Hammer toe of left foot Osteomyelitis Chronic kidney disease, stage 3 Atherosclerosis of coronary artery of [place] heart without angina pectoris Hyperlipidemia Peripheral vascular occlusive disease Hammer toe of second toe of left foot Hallux valgus (acquired), right foot Healed ulcer of left foot on examination Chronic ulcer of left foot with fat layer exposed Delayed wound healing Malnutrition Osteomyelitis of foot 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 Methicillin resistant Staphylococcus aureus infection Chronic osteomyelitis of left foot Non-healing ulcer of right foot DM2 (diabetes mellitus, type 2) Home Medications ?Medication ?Instructions ?Recorded ?Last Taken ?Type aspirin 81 mg tablet,delayed 81 mg PO QHS blood clots 01/13/14 04/14/25 History release multivitamin with folic acid 400 1 tab PO DAILY Supple ment 01/13/14 11/14/16 History mcg tablet omega-3 fatty acids-fish oil 340 1 ea PO DAILY supplem ent 06/29/16 08/27/16 History mg-1,000 mg capsule ferrous sulfate 325 mg (65 mg 325 mg PO DAILY SUPPLEME NT 08/15/18 03/08/25 History iron) tablet ascorbic acid (vitamin C) 500 mg 1,000 mg PO LUNCH Sup plement 11/25/20 03/11/25 11:50 History tablet calcium carbonate (Calcium 600) 600 mg PO DAILY supple ment 12/29/21 Unknown History clopidogrel 75 mg tablet 75 mg PO DAILY Blood clots # 90 tabs 10/23/24 04/15/25 Rx Lactobacillus acidophilus 600 mg PO QDAY gi 03/07/25 0 03/11/25 09:00 History (Acidophilus capsule) pregabalin 100 mg capsule 100 mg PO TID nerve pain 03/11/25 11:50 History simvastatin 20 mg tablet 20 mg PO QHS cholesterol #30 tabs 03/23/25 Unknown Rx nystatin 100,000 unit/gram topical 1 applic topical BI D PRN rash 05/07/25 Unknown History powder (Nyamyc) acetaminophen 650 mg 650 mg PO Q12H PRN pain 04/20 Unknown History tablet,extended release amlodipine 5 mg tablet 5 mg PO DAILY HTN #90 tabs 0 05/12/25 Unknown Rx metoprolol succinate 25 mg 12.5 mg (1/2 x 25 mg) PO DA FABIAN 05/12/25 Unknown Rx tablet,extended release 24 hr HEART RATE #45 tabs glimepiride 2 mg tablet 2 mg PO BID 05/18/25 Unknown History Allergy/AdvReac Type Severity Reaction Status Date / Time Sulfa (Sulfonamide Allergy Unknown Verified 05/17/25 21:44 Antibiotics) Family History Father CAD (coronary artery disease) Heart disease Hypertension CVA (cerebral vascular accident) Mother COPD (chronic obstructive pulmonary disease) Hypertension Heart disease Heart failure Surgical History History of cardiac catheterization History of colonoscopy History of foot surgery History of repair of left rotator cuff History of total left knee replacement (~2014) History of angioplasty of peripheral vessel (~2012) amputation left toe History of left heart catheterization (~01/20/14) Social History household members: none Smoking Status: Former smoker how long ago did patient quit smokin years ago alcohol intake: never substance use type: does not use caffeine: No ROS ROS Narrative As stated in history of present illness otherwise negative Physical Exam Narrative Responsive out of bed to a chair does not appear acutely ill lungs are clear heart exam S1-S2 abdomen soft nontender both feet extensive dressings are in place. Patient appears chronically ill, mentation is appropriate Lab / Micro Data 05/18/25 05:21 05/18/25 05:21 Labs: Laboratory Results - last 24 hr 05/17/25 21:53: WBC 7.1, RBC 3.07 L, Hgb 8.9 L, Hct 27.7 L, MCV 90.2, MCH 29.0, MCHC 32.1, RDW Std Deviation 50.8 H, RDW Coeff of Jorgito 15.3 H, Plt Count 162, MPV11.3, Immature Gran % (Auto) 0.600, Neut % (Auto) 80.8 H, Lymph % (Auto) 7.4 L, Scurry % (Auto) 10.6 H, Eos % (Auto) 0.0, Baso % (Auto) 0.6, Absolute Neuts (auto)5.7, Absolute Lymphs (auto) 0.52 L, Nucleated RBC % 0, Sodium 131 L, Potassium 4.7, Chloride 97 L, Carbon Dioxide 17.5 L, Anion Gap 16 H, BUN 78 H, Creatinine 1.96 H, Estim Creat Clear Calc 26.13 L, Est GFR (MDRD) Non-Af 27 L, BUN/Creatinine Ratio 39.9 H, Glucose 253 H, Calcium 9.2, Phosphorus 3.8, Magnesium 2.6 H, Total Bilirubin 0.45, AST 83 H, ALT 36 H, Alkaline Phosphatase 54, Total Creatine Kinase 1177 H, Total Protein 6.3, Albumin 2.9 L, Globulin 3.4, Albumin/Globulin Ratio 0.8 L 05/17/25 22:33: Lactic Acid < 1.0 05/18/25 00:50: Urine Color Yellow, Urine Clarity Cloudy, Urine pH 5.0, Ur Specific [place] 1.020, Urine Protein 100 H, Urine Glucose (UA) Normal, Urine Ketones 5 H, Urine Occult Blood 250 H, Urine Nitrite Negative, Urine Bilirubin Negative, Urine Urobilinogen Normal, Ur Leukocyte Esterase 500 H, Urine RBC 0 SEEN, Urine WBC >100 SEEN, Ur Squamous Epith Cells 0-5 SEEN, Urine Bacteria 3+, Urine Mucus 0 SEEN 05/18/25 05:21: WBC 6.3, RBC 2.93 L, Hgb 8.5 L, Hct 26.2 L, MCV 89.4, MCH 29.0, MCHC 32.4, RDW Std Deviation 50.2 H, RDW Coeff of Jorgito 15.2 H, Plt Count 158, MPV11.4, Immature Gran % (Auto) 0.500, Neut % (Auto) 76.2 H, Lymph % (Auto) 8.1 L, Scurry % (Auto) 14.6 H, Eos % (Auto) 0.3, Baso % (Auto) 0.3, Absolute Neuts (auto)4.8, Absolute Lymphs (auto) 0.51 L, Nucleated RBC % 0, ESR 54 H, PT 15.5 H, INR 2.2, APTT 46.3 H, Sodium 136, Potassium 3.7, Chloride 104, Carbon Dioxide 18.8 L, Anion Gap 13, BUN 69 H, Creatinine 1.74 H, Estim Creat Clear Calc 26.96 L, EstGFR (MDRD) Non- Af 31 L, BUN/Creatinine Ratio 39.9 H, Glucose 161 H, Hemoglobin A1c 7.6 H, Calcium 9.1, Total Bilirubin 0.29, AST 70 H, ALT 33, Alkaline Phosphatase 47, Total Creatine Kinase 1008 H, Total Protein 5.5 L, Albumin 2.7 L, Globulin 2.8, Albumin/Globulin Ratio 1.0 05/18/25 06:18: POC Glucose 132 H 05/18/25 07:40: Lactic Acid < 1.0 05/18/25 11:26: POC Glucose 93 Micro: Microbiology 05/18/25 04:00 Wound - Right Foot Gram Stain - Final 05/18/25 04:00 Wound - Right Foot Skin and Soft Tissue MRSA/MSSA (PCR - Final Meth. resistant Staph. aureus Imaging Radiology Impression Chest X-Ray 05/17/25 22:35 IMPRESSION: No acute chest findings. Reading Location: [facility]-2 Foot X-Ray 05/17/25 22:35 IMPRESSION: Possible osteoarthritis, 4th metatarsal head. Soft tissue swelling, without obvious soft tissue gas. Possible cellulitis. Reading Location: [facility] Abdomen/Pelvis CT 05/18/25 07:26 IMPRESSION: Cholelithiasis, no CT evidence of acute cholecystitis Retained stool in the colon with scattered diverticula but no CT evidence of acute diverticulitis Bladder is distended but no wall thickening or pericystic inflammation noted. Findings could be a sign of bladder outlet issues. No hydronephrosis or hydroureter but the kidneys demonstrate nonspecifically prominent renal pelves Diffuse atherosclerotic calcifications Nonobstructing renal stones Uterus is present, the endometrium can not be accurately evaluated with CT. Degenerative bony changes Reading Location: [id number] Chest CTA 05/18/25 07:26 IMPRESSION: There is a 0.5 cm solid nodule in the right mid lung, image 131/244. There is a 0.4 cm solid nodule in the right mid lung, image 115/244. Follow-up is recommended. There is atelectasis with a trace effusion at the left lung base. There is no visible pulmonary embolus. Reading Location: [facility] 05/18/25 1233 <Electronically signed by Jason Polk MD> Cosigner Signature (if applicable): CC: Dr. Rishi Vasquez DO; Dr. Jerri Castillo DO~ Signed [facility] Work Phone: [phone]) 761-512706-30-2025 Radiology Diagnostic study [facility]06-30-2025 Radiology Diagnostic study [facility]06-30-2025 Discharge summary Author Jerri Castillo [facility] Note Date/Time May 18, 2025 7:01 am [facility] Medical Records Department [address] [place] [address] Emergency Department Summary 05/17/25 MR#: [id number] Acct: [id number] Name: GELY NEWMAN Rep #:[id number] : 1950 75 From: Jerri Castillo DO PCP: Dr. Rishi Vasquez DO Status:AD M IN [place] [facility] [facility] H[place] History of Present Illness Chief Complaint: Fall Detail of Chief Complaint: Weakness Narrative Narrative: Patient presents to the emergency department complaint of generalized weakness. Patient states that having a hard time ambulating today due to the weakness. Patient tells me she fell yesterday when she came into the house around 11:15 AMbecause her right leg gave out. She was found by her brother at 9 PM in the evening and helped her to a chair along with a neighbor. Patient apparently slept in a chair last evening and this morning was ambulatory but then this evening sat on the toilet and could not get back up. EMS was called. Patient was noted to have a fever. She denies cough or sore throat. She denies abdominal pain. She has had no vomiting or diarrhea. She denies dysuria urgency or frequency. She is a diabetic and has chronic wounds to both lower extremities. She is currently on an antibiotic due to some erythema to the leftfoot wounds that was noted by visiting nurse last week and she was started on antibiotics by her technician submarine cable equipment Dr. Irene. Patient unsure the name of the antibiotic. 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 Other specified peripheral vascular diseases Chronic painful diabetic polyneuropathy MRSA (methicillin resistant staph aureus) culture positive Depression Diabetes Back pain Vertigo History of pain when walking Hypertension Arthritis Wears dentures Post-menopausal Low iron High cholesterol Easy bruising Neuropathy Dietary restriction Former smoker Cardiology follow-up encounter History of torn meniscus of left knee Carotid artery stenosis Essential hypertension Skin lesion Hammer toe of left foot Osteomyelitis Chronic kidney disease, stage 3 Atherosclerosis of coronary artery of [place] heart without angina pectoris Hyperlipidemia Peripheral vascular occlusive disease Hammer toe of second toe of left foot Hallux valgus (acquired), right foot Healed ulcer of left foot on examination Chronic ulcer of left foot with fat layer exposed Delayed wound healing Malnutrition Osteomyelitis of foot 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 Methicillin resistant Staphylococcus aureus infection Chronic osteomyelitis of left foot Non-healing ulcer of right foot DM2 (diabetes mellitus, type 2) Home Medications ?Medication ?Instructions ?Recorded ?Last Taken ?Type aspirin 81 mg tablet,delayed 81 mg PO QHS blood clots 01/13/14 04/14/25 History release multivitamin with folic acid 400 1 tab PO DAILY Supple ment 01/13/14 11/14/16 History mcg tablet omega-3 fatty acids-fish oil 340 1 ea PO DAILY supplem ent 06/29/16 08/27/16 History mg-1,000 mg capsule ferrous sulfate 325 mg (65 mg 325 mg PO DAILY SUPPLEME NT 08/15/18 03/08/25 History iron) tablet ascorbic acid (vitamin C) 500 mg 1,000 mg PO LUNCH Sup plement 11/25/20 03/11/25 11:50 History tablet calcium carbonate (Calcium 600) 600 mg PO DAILY supple ment 12/29/21 Unknown History clopidogrel 75 mg tablet 75 mg PO DAILY Blood clots # 90 tabs 10/23/24 04/15/25 Rx Lactobacillus acidophilus 600 mg PO QDAY gi 03/07/25 0 03/11/25 09:00 History (Acidophilus capsule) pregabalin 100 mg capsule 100 mg PO TID nerve pain 03/11/25 11:50 History simvastatin 20 mg tablet 20 mg PO QHS cholesterol #30 tabs 03/23/25 Unknown Rx nystatin 100,000 unit/gram topical 1 applic topical BI D PRN rash 05/07/25 Unknown History powder (Nyamyc) acetaminophen 650 mg 650 mg PO Q12H PRN pain 04/20 Unknown History tablet,extended release amlodipine 5 mg tablet 5 mg PO DAILY HTN #90 tabs 0 05/12/25 Unknown Rx metoprolol succinate 25 mg 12.5 mg (1/2 x 25 mg) PO DA FABIAN 05/12/25 Unknown Rx tablet,extended release 24 hr HEART RATE #45 tabs glimepiride 2 mg tablet 2 mg PO BID 05/18/25 Unknown History Allergy/AdvReac Type Severity Reaction Status Date / Time Sulfa (Sulfonamide Allergy Unknown Verified 05/17/25 21:44 Antibiotics) Family History Father CAD (coronary artery disease) Heart disease Hypertension CVA (cerebral vascular accident) Mother COPD (chronic obstructive pulmonary disease) Hypertension Heart disease Heart failure Surgical History History of cardiac catheterization History of colonoscopy History of foot surgery History of repair of left rotator cuff History of total left knee replacement (~2014) History of angioplasty of peripheral vessel (~2012) amputation left toe History of left heart catheterization (~01/20/14) Social History household members: none Smoking Status: Former smoker how long ago did patient quit smokin years ago alcohol intake: never substance use type: does not use caffeine: No ROS ROS ED Review of Systems ROS Unobtainable: other Constitutional Constitutional ED: Reports fever(s) and lethargy; Denies chills, sweats or weight loss Eyes Eyes: Denies blurry vision, change in vision or diplopia ENT ENT ED: Denies rhinorrhea or sore throat Cardiovascular Cardiovascular: Denies chest pain, orthopnea or racing heartbeat Respiratory/Chest Respiratory/Chest: Denies cough, dyspnea, dyspnea on exertion, orthopnea or sputum Gastrointestinal Gastrointestinal: Denies abdominal pain, diarrhea, nausea or vomiting Genitourinary Genitourinary ED: Denies dysuria, hematuria or urinary frequency Musculoskeletal Musculoskeletal: Denies arthralgias, back pain, myalgias or neck pain Integumentary Reports other Details: Chronic wounds bilateral feet ; Denies abscess, Abrasions or rash Neurologic Neurologic: Reports other Details: Generalized weakness ; Denies headache(s) or weakness Psychiatric Psychiatric: Denies anxiety, depression or suicidal thoughts Endocrine Endocrinology: Denies polydipsia, polyphagia or polyuria Hematologic/Lymphatic Hematologic/Lymphatic: Denies easy bleeding, easy bruising or lymphadenopathy Allergic/Immunologic Allergic/Immunologic ED: Denies mouth swelling, tongue swelling or urticaria EXAM Physical Exam Const Vital Signs: 05/17/25 21:40 05/17/25 22:02 05/17/25 22:05 Temperature 97.9 F 100.4 F H Temperature Source Temporal Oral Pulse Rate 71 Respiratory Rate 18 Respiratory Effort Normal Respiratory Depth Normal Respiratory Pattern Normal Blood Pressure 118/52 L Blood Pressure Mean 74 Pulse Ox 96 Oxygen Delivery Method Room Air Room Air 05/18/25 00:00 Temperature Temperature Source Pulse Rate 100 Respiratory Rate 23 H Respiratory Effort Respiratory Depth Respiratory Pattern Blood Pressure 118/51 L Blood Pressure Mean 73 Pulse Ox 100 Oxygen Delivery Method Room Air Positive well nourished and well developed General Appearance ED: well developed and NAD HEENT Reports TM's clear and moist mucous membranes normocephalic and atraumatic; Negative for trauma or tenderness Tympanic Membrane ED: Yes TM's clear Eyes PERRL and EOMs intact bilaterally General Eye ED: Negative for pale conjunctiva or scleral icterus Neck no lymphadenopathy, supple and no JVD General: Negative for tenderness Chest Wall inspection of chest normal and palpation of chest normal Chest: Negative for tenderness Resp normal respiratory effort and clear to auscultation bilaterally Effort and Inspection: Negative for respiratory distress or pain with movement Auscultation: Negative for rhonchi, wheezes or diminished lung sounds Cardio regular rate, regular rhythm, S1 normal heart sound, S2 normal heart sound and no murmurs Peripheral Pulses: pulses 2+ throughout GI normal to inspection, nondistended, normoactive bowel sounds, soft to palpation,non-tender, non-distended and no masses Back/Spine no CVA tenderness and no thoracic nor lumbar tenderness Extremity Extremity Narrative: Patient with chronic wounds to both lower extremities specifically the feet. She has chronic appearing wound to the left heel as well as medial malleolus with some faint erythema noted. There was a foul odor noted. Patient also withchronic wound to the right heel however there is no erythema or odor from this wound. Patient has multiple missing toes to the left foot from prior amputations. General Extremety ED: Negative for edema General Extremity: Negative for edema Neuro oriented x3, CN's II-XII intact bilaterally, no sensory deficits noted and gait normal Sensorium / Orientation: awake, alert, oriented to person, oriented to place andoriented to time Motor Exam: strength 5/5 throughout and strength abnormal Psych mental status grossly normal Skin no rashes or lesions noted and no wounds MDM MDM MDM Narrative Medical decision making narrative: Patient presents with generalized weakness as well as fever. Difficulty ambulating at this time. She had a fall recently. History of diabetic foot wounds. IV line established. Blood cultures ordered. CBC with differential white count 7.1 with hemoglobin 8.9 and platelet count of 162. Chemistries withsodium 131 and potassium 4.7. BUN 78 and creat 1.96. Glucose was 253. Lactateless than 1. Total CPK was 1 1177. Minimal elevation in the LFTs with an AST of 83 and ALT of 36. Urinalysis positive for infection. Urine culture sent. Patient started on Rocephin and vancomycin IV. I did obtain x-rays of the left foot that showed possible osteomyelitis fourth metatarsal head. She had diffusesoft tissue swelling and cellulitic changes. 1 view chest x-ray was unremarkable. Case will be discussed with hospitalist to evaluate patient for admission Lab Data Attestation: I reviewed the patient's lab results. Labs: Laboratory Results - last 24 hr 05/17/25 05/17/25 05/18/25 21:53 22:33 00:50 WBC 7.1 RBC 3.07 L Hgb 8.9 L Hct 27.7 L MCV 90.2 MCH 29.0 MCHC 32.1 RDW Std Deviation 50.8 H RDW Coeff of Jorgito 15.3 H Plt Count 162 MPV 11.3 Immature Gran % (Auto) 0.600 Neut % (Auto) 80.8 H Lymph % (Auto) 7.4 L Scurry % (Auto) 10.6 H Eos % (Auto) 0.0 Baso % (Auto) 0.6 Absolute Neuts (auto) 5.7 Absolute Lymphs (auto) 0.52 L Nucleated RBC % 0 Sodium 131 L Potassium 4.7 Chloride 97 L Carbon Dioxide 17.5 L Anion Gap 16 H BUN 78 H Creatinine 1.96 H Estim Creat Clear Calc 26.13 L Est GFR (MDRD) Non-Af 27 L BUN/Creatinine Ratio 39.9 H Glucose 253 H Lactic Acid < 1.0 Calcium 9.2 Total Bilirubin 0.45 AST 83 H ALT 36 H Alkaline Phosphatase 54 Total Creatine Kinase 1177 H Total Protein 6.3 Albumin 2.9 L Globulin 3.4 Albumin/Globulin Ratio 0.8 L Urine Color Yellow Urine Clarity Cloudy Urine pH 5.0 Ur Specific [place] 1.020 Urine Protein 100 H Urine Glucose (UA) Normal Urine Ketones 5 H Urine Occult Blood 250 H Urine Nitrite Negative Urine Bilirubin Negative Urine Urobilinogen Normal Ur Leukocyte Esterase 500 H Urine RBC 0 SEEN Urine WBC >100 SEEN Ur Squamous Epith Cells 0-5 SEEN Urine Bacteria 3+ Urine Mucus 0 SEEN Radiography Diagnostic Testing: Clinical Impression(s) from Imaging Studies Chest X-Ray 05/17/25 22:35 IMPRESSION: No acute chest findings. Reading Location: [place] [address] Foot X-Ray 05/17/25 22:35 IMPRESSION: Possible osteoarthritis, 4th metatarsal head. Soft tissue swelling, without obvious soft tissue gas. Possible cellulitis. Reading Location: [place] [address] Discharge Plan Triage Chief Complaint: Fall ED Provider: Jerri Castillo Dx/Rx/DC Orders Clinical Impression: Weakness, SHAYY (acute kidney injury), Acute UTI, Dehydration, Acute osteomyelitis of left foot Prescriptions: No Action calcium carbonate [Calcium 600] 600 mg calcium (1,500 mg) tablet 600 mg PO DAILY nystatin [Nyamyc] 100,000 unit/gram powder 1 applic topical BID PRN (Reason: rash) Protocol: *Topical Application Instructions APPLICATION INSTRUCTIONS: apply to abdominal folds, under breasts aspirin 81 MG tablet 81 mg PO QHS multivitamin with folic acid 1 TABLET tablet 1 tab PO DAILY Patient Comments: vitamin supplement ascorbic acid (vitamin C) 500 mg tablet 1,000 mg PO LUNCH Patient Comments: supplement omega-3 fatty acids-fish oil 1 EACH capsule 1 ea PO DAILY Patient Comments: supplement ferrous sulfate 325 MG tablet 325 mg PO DAILY pregabalin 100 mg capsule 100 mg PO TID Acidophilus Capsule 600 mg PO QDAY acetaminophen 650 mg tablet extended release 650 mg PO Q12H PRN (Reason: pain) glimepiride 2 mg tablet 2 mg PO BID clopidogrel 75 mg tablet 75 mg PO DAILY Qty: 90 3RF Patient Comments: ask about stopping simvastatin 20 mg tablet 20 mg PO QHS Qty: 30 11RF amlodipine 5 mg tablet 5 mg PO DAILY Qty: 90 3RF metoprolol succinate 25 mg tablet extended release 24 hr 12.5 mg PO DAILY Qty: 45 3RF Primary Care Provider: Rishi Vasquez Referrals: Rishi Vasquez DO [Primary Care Provider] - Print Language: [place] Disposition Disposition: Acute Care Hospital [facility] What to do if you have Problems For any increased pain, shortness of breath, bleeding, nausea or vomiting, chestpain, or any unexpected problems, contact your Primary Care Provider. Call [facility] ([phone]) or report to the closest Emergency Room. Call 911 if necessary. 05/18/25 0701 <Electronically signed by Jerri Castillo DO> Cosigner Signature (if applicable): CC: Dr. Rishi Vasquez DO ~ Signed [facility] Work Phone: [phone]) 888-190706-30-2025 [facility]06-30-2025 Consult note Author Rick Barth [facility] Note Date/Time May 18, 2025 3:45 am [facility] Medical Records Department [address] [place] [address] Pharmacokinetic/Renal -Consult 05/18/25 0344 MR#: [id number] Acct: [id number] Name: GELY NEWMAN Rep #:[id number] : 1950 75 From: Rick Anders od PCP: Dr. Rishi Vasquez DO Status:AD M IN Location: [place] [id number] Consult Antibiotic Management Pharmacy has been consulted to manage selected antibiotic: Vancomycin Type of Intervention Type of Consult: New start Labs Labs: Sodium 131 mmol/L (133-145) L 05/17/25 21:53 Potassium 4.7 mmol/L (3.3-5.1) 05/17/25 21:53 Chloride 97 mmol/L (98-108) L 05/17/25 21:53 Carbon Dioxide 17.5 mmol/L (21.0-32.0) L 05/17/25 21:53 Anion Gap 16 (5-15) H 05/17/25 21:53 BUN 78 mg/dL (4-19) H 05/17/25 21:53 Creatinine 1.96 mg/dL (0.70-1.20) H 05/17/25 21:53 Est GFR (MDRD) Non-Af 27 (>60) L 05/17/25 21:53 BUN/Creatinine Ratio 39.9 RATIO (10-20) H 05/17/25 21:53 Glucose 253 mg/dL (70-99) H 05/17/25 21:53 Dosing Weight Weight used for dosin.4 kg Estimated Creatinine Clearance Estimated Creatinine Clearance: 26.13 Goal Trough Goal Trough: 15-20 mcg/mL Pharmacy Plan for Drug Dosing Pharmacy Plan for Drug Dosing: Pharmacy Service will continue to monitor and adjust dosing as required. ER DOSE 1GM GIVEN 05/18 @ 0311. START 7450MG QD AND DRAW TROUGH PRIOR TO 3RD DOSE Follow-Up Labs Follow-Up Labs: Trough: Vancomycin Date/Time Labs Ordered Labs to be done on [date and time ordered]: 05/20 @ 0300 05/18/25 8235 <Electronically signed by Rick ramirez> Date _ Rick Jules Signature (if applicable): Date CC: ~ Signed [facility] Work Phone: [phone]) 890-192906-30-2025 History and physical note Author Maddie Merchant [facility] Note Date/Time May 18, 2025 2:32 am [facility] Medical Records Department [address] [facility] [place] [address] H&P Exam - Hospitalist 05/18/25200 MR#: [id number] Acct: [id number] Name: GELY NEWMAN Melinda Rep #:[id number] : 1950 75 From: Maddie Merchant MD PCP: Dr. Rishi Vasquez, DO Status:AD M IN [place] [facility] [id number] HPI - General General Date of Admission: 05/18/25 Date of Service: 05/18/25 Chief Complaint: Debility, weakness. HPI Narrative The patient is a 75 y/o F w/ PMHx: CAD, PAD s/p peripheral angioplasty, Diabetesmellitus type II with Chronic neuropathy, Anxiety and Depression, HTN, HLD, Former tobacco use, Chronic normocytic anemia/Fe deficiency anemia, CKD stage III unclear subtype per GFR trending, chronic bilateral lower extremity diabeticulcerations/wounds following with Dr. Irene podiatric medicine with recent new ulcer to the left medial ankle unfortunately where her surgical offloading shoe has been rubbing who presents to the [facility] ED on 05/18/2025 with generalized weakness, fatigue, difficulty ambulating secondary weakness with fall the day prior when she was coming to the house at 11:15 AM unfortunately found later in the evening past 9 PM by her family eventually helped into a chair where she remained although she was able to get out of the chair in the morning and use the toilet but unfortunately was unable to even getup after this prompting EMS call with noted onset of fever reporting that she had recently started doxycycline oral antibiotic for erythema to the left foot wounds per her podiatry office prompting evaluation in the ED. Workup in the ED included T97.9, heart rate 71, BP 119/52, respiratory rate 18, 96% room air withmost recent vitals T1 100.4 oral, heart 100, BP 118/51, respiratory rate 23, 100% on room air, CBC with WC 7.1, hemoglobin 8.9, MCV 90.2, platelet 162 with lymphopenia, CMP with sodium 131, chloride 97, carbon oxide 17.5, anion gap 16, BUN/creatinine 78/1.96, GFR 27, glucose 253, lactic acid less than 1, AST/ALT 83/36, total creatinine kinase 1177, urinalysis with specific remedy 1.020, protein 100, ketones 5, occult blood 250, negative nitrite, leukocyte Estrace 500 with greater than 100 urine WBCs with 3+ urine bacteria, urine culture pending per ED, chest x-ray with no acute cardiopulmonary findings, plain film of the left foot with possible osteoarthritis, fourth metatarsal head, soft tissue swelling without obvious soft tissue gas with possibly cellulitis with postoperative changes. 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 Other specified peripheral vascular diseases Chronic painful diabetic polyneuropathy MRSA (methicillin resistant staph aureus) culture positive Depression Diabetes Back pain Vertigo History of pain when walking Hypertension Arthritis Wears dentures Post-menopausal Low iron High cholesterol Easy bruising Neuropathy Dietary restriction Former smoker Cardiology follow-up encounter History of torn meniscus of left knee Carotid artery stenosis Essential hypertension Skin lesion Hammer toe of left foot Osteomyelitis Chronic kidney disease, stage 3 Atherosclerosis of coronary artery of [place] heart without angina pectoris Hyperlipidemia Peripheral vascular occlusive disease Hammer toe of second toe of left foot Hallux valgus (acquired), right foot Healed ulcer of left foot on examination Chronic ulcer of left foot with fat layer exposed Delayed wound healing Malnutrition Osteomyelitis of foot 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 Methicillin resistant Staphylococcus aureus infection Chronic osteomyelitis of left foot Non-healing ulcer of right foot DM2 (diabetes mellitus, type 2) Home Medications ?Medication ?Instructions ?Recorded ?Last Taken ?Type aspirin 81 mg tablet,delayed 81 mg PO QHS blood clots 01/13/14 04/14/25 History release multivitamin with folic acid 400 1 tab PO DAILY Supple ment 01/13/14 11/14/16 History mcg tablet omega-3 fatty acids-fish oil 340 1 ea PO DAILY supplem ent 06/29/16 08/27/16 History mg-1,000 mg capsule ferrous sulfate 325 mg (65 mg 325 mg PO DAILY SUPPLEME NT 08/15/18 03/08/25 History iron) tablet ascorbic acid (vitamin C) 500 mg 1,000 mg PO LUNCH Sup plement 11/25/20 03/11/25 11:50 History tablet calcium carbonate (Calcium 600) 600 mg PO DAILY supple ment 12/29/21 Unknown History clopidogrel 75 mg tablet 75 mg PO DAILY Blood clots # 90 tabs 10/23/24 04/15/25 Rx Lactobacillus acidophilus 600 mg PO QDAY gi 03/07/25 0 03/11/25 09:00 History (Acidophilus capsule) pregabalin 100 mg capsule 100 mg PO TID nerve pain 03/11/25 11:50 History simvastatin 20 mg tablet 20 mg PO QHS cholesterol #30 tabs 03/23/25 Unknown Rx nystatin 100,000 unit/gram topical 1 applic topical BI D PRN rash 05/07/25 Unknown History powder ([facility]) acetaminophen 650 mg 650 mg PO Q12H PRN pain 04/20 Unknown History tablet,extended release amlodipine 5 mg tablet 5 mg PO DAILY HTN #90 tabs 0 05/12/25 Unknown Rx metoprolol succinate 25 mg 12.5 mg (1/2 x 25 mg) PO DA FABIAN 05/12/25 Unknown Rx tablet,extended release 24 hr HEART RATE #45 tabs glimepiride 2 mg tablet 2 mg PO BID 05/18/25 Unknown History Allergy/AdvReac Type Severity Reaction Status Date / Time Sulfa (Sulfonamide Allergy Unknown Verified 05/17/25 21:44 Antibiotics) Family History Father CAD (coronary artery disease) Heart disease Hypertension CVA (cerebral vascular accident) Mother COPD (chronic obstructive pulmonary disease) Hypertension Heart disease Heart failure Surgical History History of cardiac catheterization History of colonoscopy History of foot surgery History of repair of left rotator cuff History of total left knee replacement (~2014) History of angioplasty of peripheral vessel (~2012) amputation left toe History of left heart catheterization (~01/20/14) Social History household members: none Smoking Status: Former smoker how long ago did patient quit smokin years ago alcohol intake: never substance use type: does not use caffeine: No ROS ROS Narrative Admission Review of Systems: CONSTITUTIONAL: No weight loss, + fever, chills, weakness or fatigue. HEENT: Eyes: No visual loss, blurred vision, double vision or yellow sclerae. Ears, Nose, Throat: No hearing loss, sneezing, congestion, runny nose or sore throat. SKIN: No rash or itching, lesions except significant + bilateral lower extremitydiabetic wounds, left lower extremity primarily worse with notable lateral ankleand posterior heel wounds, heel wound with significant necrotic wound/discharge and foul odor. CARDIOVASCULAR: No chest pain, chest pressure or chest discomfort, palpitations,edema, orthopnea, syncopal events. RESPIRATORY: No shortness of breath, cough or sputum, wheezing, hemoptysis. GASTROINTESTINAL: + Decreased appetite. No nausea, vomiting or diarrhea, abdominal pain, melena, BRBPR. GENITOURINARY: No dysuria, frequency, urgency or retention. NEUROLOGICAL: No headache, dizziness, syncope, paralysis, ataxia, numbness or tingling in the extremities, focal weakness, change in bowel or bladder control,seizure. MUSCULOSKELETAL: + muscle, back pain, joint pain or stiffness. HEMATOLOGIC: + Chronic anemia, easy bleeding/bruising. LYMPHATICS: No enlarged nodes. No history of splenectomy. PSYCHIATRIC: + History of anxiety and depression. ENDOCRINOLOGIC: No reports of sweating, cold or heat intolerance. No polyuria orpolydipsia. ALLERGIES: No history of asthma, hives, eczema or rhinitis. Vital Signs Vital Signs Vital Signs: 05/17/25 21:40 05/17/25 22:02 05/17/25 22:05 Temperature 97.9 F 100.4 F H Temperature Source Temporal Oral Pulse Rate 71 Respiratory Rate 18 Respiratory Effort Normal Respiratory Depth Normal Respiratory Pattern Normal Blood Pressure 118/52 L Blood Pressure Mean 74 Pulse Ox 96 Oxygen Delivery Method Room Air Room Air 05/18/25 00:00 05/18/25 01:56 Temperature 103.1 F H Temperature Source Oral Pulse Rate 100 85 Respiratory Rate 23 H 15 Respiratory Effort Respiratory Depth Respiratory Pattern Blood Pressure 118/51 L 124/50 H Blood Pressure Mean 73 74 Pulse Ox 100 93 Oxygen Delivery Method Room Air Room Air Weight Weight: 160 lb 11.472 oz Body Mass Index (BMI) 25.9 Physical Exam Narrative Physical Examination: General: Awake, alert, oriented x 3 and cooperative, laying in the bed, fatiguedbut denies any pain or acute complaint at this time. Skin: Normal color, normal turgor, no icterus, no cyanosis except for occasionalstage ecchymoses, abrasion, significant bilateral lower extremity diabetic foot wounds primarily more acutely the left lower extremity with lateral ankle diabetic ulceration with no significant periwound erythema or drainage but he will significant necrotic appearing ulceration with discharge and foul odor and periwound erythema. HEENT: AT/NC, EOMI, PERRLA, dry MM, no carotid bruits or JVD noted. Lungs: Mildly diminished, greater bases, proper effort, no rales, ronchi or wheezing. Heart: Mildly tachycardic with regular rhythm; no gallop, rub audible. Abdomen: Soft, NTTP, ND, hyperactive BS, no appreciated HSM. Extremities: No cyanosis, no clubbing, see skin, left lower extremity with mid calf to pedal not markedly pitting but edematous in addition to diabetic wounds as noted. Patient is tremulous and notes this is chronic. Neurological: Patient awake, alert, oriented as noted, cognitive function intact; pupils equally reactive to light and accommodation, cranial nerves grossly normal, moving all 4 extremities, tremulous which is chronic, no focal deficits, strength severely globally increased Psychiatric: Affect appears fatigued, no acute evidence of depressive or anxietyfeelings. Results Lab / Micro Data 05/17/25 21:53 05/17/25 21:53 Labs: Laboratory Results - last 24 hr 05/17/25 21:53: WBC 7.1, RBC 3.07 L, Hgb 8.9 L, Hct 27.7 L, MCV 90.2, MCH 29.0, MCHC 32.1, RDW Std Deviation 50.8 H, RDW Coeff of Jorg[place] 15.3 H, Plt Count 162, MPV11.3, Immature Gran % (Auto) 0.600, Neut % (Auto) 80.8 H, Lymph % (Auto) 7.4 L, Scurry % (Auto) 10.6 H, Eos % (Auto) 0.0, Baso % (Auto) 0.6, Absolute Neuts (auto)5.7, Absolute Lymphs (auto) 0.52 L, Nucleated RBC % 0, Sodium 131 L, Potassium 4.7, Chloride 97 L, Carbon Dioxide 17.5 L, Anion Gap 16 H, BUN 78 H, Creatinine 1.96 H, Estim Creat Clear Calc 26.13 L, Est GFR (MDRD) Non-Af 27 L, BUN/Creatinine Ratio 39.9 H, Glucose 253 H, Calcium 9.2, Total Bilirubin 0.45, AST 83 H, ALT 36 H, Alkaline Phosphatase 54, Total Creatine Kinase 1177 H, Total Protein 6.3, Albumin 2.9 L, Globulin 3.4, Albumin/Globulin Ratio 0.8 L 05/17/25 22:33: Lactic Acid < 1.0 05/18/25 00:50: Urine Color Yellow, Urine Clarity Cloudy, Urine pH 5.0, Ur Specific [place] 1.020, Urine Protein 100 H, Urine Glucose (UA) Normal, Urine Ketones 5 H, Urine Occult Blood 250 H, Urine Nitrite Negative, Urine Bilirubin Negative, Urine Urobilinogen Normal, Ur Leukocyte Esterase 500 H, Urine RBC 0 SEEN, Urine WBC >100 SEEN, Ur Squamous Epith Cells 0-5 SEEN, Urine Bacteria 3+, Urine Mucus 0 SEEN Imaging Radiology Impression Chest X-Ray 05/17/25 22:35 IMPRESSION: No acute chest findings. Reading Location: [facility] Foot X-Ray 05/17/25 22:35 IMPRESSION: Possible osteoarthritis, 4th metatarsal head. Soft tissue swelling, without obvious soft tissue gas. Possible cellulitis. Reading Location: [facility] Assessment & Plan Assessment/Plan (1) Acute UTI: PLAN: Plan The patient is a 75 y/o F w/ PMHx: CAD, PAD s/p peripheral angioplasty, Diabetesmellitus type II with Chronic neuropathy, Anxiety and Depression, HTN, HLD, Former tobacco use, Chronic normocytic anemia/Fe deficiency anemia, CKD stage III unclear subtype per GFR trending, chronic bilateral lower extremity diabeticulcerations/wounds following with Dr. Irene podiatric medicine with recent new ulcer to the left medial ankle unfortunately where her surgical offloading shoe has been rubbing who presents to the [facility] ED on 05/18/2025 with generalized weakness, fatigue, difficulty ambulating secondary weakness with fall the day prior when she was coming to the house at 11:15 AM unfortunately found later in the evening past 9 PM by her family eventually helped into a chair where she remained although she was able to get out of the chair in the morning and use the toilet but unfortunately was unable to even getup after this prompting EMS call with noted onset of fever reporting that she had recently started doxycycline oral antibiotic for erythema to the left foot wounds per her podiatry office prompting evaluation in the ED. #1. LLE Infected Diabetic Ulceration with questionable 4th metatarsal head/LLE Cellulitis w/ Chronic BL LE Diabetic wounds/Ulcerations: Will admit to MS given stable vital sign, will maintain on IV vanc and zosyn, will obtain Wound Cx, will obtain Wound MRSA PCR, plan repeat CBC in AM, continue affected extremity elevation above heart when seated and in bed, monitor erythema outline with VS checks, will consult Wound RN, will consult Dr. Irene Podiatry, will request consultation also with Dr. Clement vascular surgery. #2. Acute Complicated Urinary Tract Infection: UA upon ED evaluation remarkable, pending UCx, continue aggressive IVFs, monitor I/Os, continue IV Zosyn/bank given #1 concurrently w/ transition as able pending sensitivities andspeciation. Bld cx x 2 obtained in the ED. #3. Acute kidney injury on CKD stage III unclear subtype per previous GFR trending: Secondary to acute presentation as noted. Admission BUN/Cr 78/1.98, GFR 27, prior baseline creatinine noted to be most recently 0.9-1.0 but has vacillated in the past appears to have ranged 1.1-1.4 also,. Will hydrate, hold nephrotoxic medications and repeat chemistry in AM. If not improving will investigate further. #4. Acute rhabdomyolysis: Total creatinine kinase 1177, in addition to as notedacute kidney injury and mild transaminitis, will continue aggressive hydration and repeat CMP in AM, monitor urine output and adjust fluids as needed. #5. Mild acute transaminitis: Admission hepatic profile with T. bili 0.45, AST/ALT 83/36, will continue treatment as noted above, repeat CMP in AM. #6. Acute hyponatremia, hypochloremia, suspect hypovolemic etiology especially given #1: Admission sodium 131, chloride 97, will continue to hydrate and repeatCMP in AM. #7. PAD, CAD: Status post only peripheral angioplasty intervention per report, following with Dr. Clement with recent office visit noted 05/13/2025 with reportedly recent CTA demonstrating significant calcific femoral disease bilaterally with angiogram evaluation of the tibial vessels with consideration for bypass bilaterally with vein mapping unfortunately demonstrating insufficient vein use for bypass grafting with recommendation in conjunction with podiatry/vascular surgery noted to be bilateral femoral endarterectomies with bilateral femoral to tibial bypass with cadaver graft and bilateral sartorius flaps with planned staged procedures with noted plan for potential scheduled procedure 05/26/2025. Will continue aspirin, Plavix, statin, hypertensive regimen with adjustments as needed pending blood pressure trending. #8. Diabetes mellitus type II complicated by #1 with chronic diabetic wounds and chronic diabetic neuropathy: Hold oral home regimen, hemoglobin A1c requested, will maintain n.p.o. status pending vascular surgery and podiatry evaluation in case of decision for operative intervention undertaken, accu checks w/ ISS, continue home pregabalin regimen, nutrition consulted for education and teaching. #9. Hypertension: Continue home regimen including metoprolol, amlodipine with hold parameters as needed, PRN hydralazine. #10. Hyperlipidemia: Give #4 will temporarily hold statin therapy. #11. Chronic normocytic anemia/iron deficiency anemia: Admission hemoglobin 8.9, MCV 90.2, baseline hemoglobin has vacillated but appears primarily 9 range although more recently 05/08/2025 hemoglobin was 10.4, continue to closely trend CBC, if dropping further will investigate. Will continue iron supplementation. #12. Anxiety and depression: Noted history in the chart, not on regimen per current list, continue to monitor and follow-up outpatient as previously arranged. #13. Former tobacco use: Encourage continued tobacco cessation. #14. DVT prophylaxis: SCDs, hold chemoprophylaxis in case of OR, add if deferred. #15. CODE status: Patient HCPOA she thinks is her sister but she is uncertain and she believes living will may be in place. Discussed CODE status at length including difference between FULL code, DNR-CCA and DNR-CC status. Following discussions about the differences in these status, requested Full Code status. Advanced Care Planning Face to Face Time: 16 minutes. Charges/Coding Visit Charges Inpatient E&M: 10954 Init Hosp L3 Procedures Hospitalists Procedures: 48873 Advncd Care Plan 30 Min 05/18/25 0232 <Electronically signed by Maddie Merchant MD> Cosigner Signature (if applicable): CC: Dr. Maddie Merchant MD; Dr. Rishi Vasquez, DO~ Signed [facility] Work Phone: [phone]) 547-263406-29-2025 Radiology Diagnostic study [facility]06-29-2025 Radiology Diagnostic study [facility]06-19-2025 Telephone encounter Note* Telephone Encounter - Lebron Jacome RN - 05/07/2025 1:07 PM EDT Pt phoned back and states she was able to get 5 days of glipizide from pharmacy. Pt asking pcp to change the medication since her insurance does not cover it. [facility]06-19-2025 Miscellaneous Notes* Telephone Encounter - Lebron Jacome RN - 05/07/2025 1:07 PM EDT Pt phoned back and states she was able to get 5 days of glipizide from pharmacy. Pt asking pcp to change the medication since her insurance does not cover it. * Telephone Encounter - Sara Solis RN - 05/07/2025 11:28 AM EDT Called and left a detailed voicemail notifying patient of providers message. Clinic phone number was left for the patient to call back if she would like the provider to change her medication. Sara Solis RN * Telephone Encounter - Rishi Vasquez DO - 05/06/2025 8:20 PM EDT Agree with below Rishi Vasquez DO * Telephone Encounter - Any Rodriguez LPN - 05/06/2025 2:55 PM EDT Called pt and message left she can either ask the pharmacy to run the rx with a discount card or call back and ask the provider to change the medicine. * Telephone Encounter - Any Rodriguez LPN - 05/06/2025 1:20 PM EDT Images from the original note were not included. This is the PA response. Close reason: Product not covered by this plan. Prior Authorization not available. Payer: [employer] [phone] Note from payer: This drug/product is not covered under the pharmacy benefit. Prior Authorization is not available. * Telephone Encounter - Any Rodriguez LPN - 05/06/2025 1:17 PM EDT Electronic PA requested. * Telephone Encounter - Sara Solis RN - 05/06/2025 12:25 PM EDT Pt called in and reports she went in to [facility] and they told her that her insurance doesn't cover the Glipizide 5 mg tablets without a PA. Pt states she got them before and her insurance covered them. Pt states she paid out of pocket for 5 days worth of pills. Prior Authorization Documentation Prior authorization requested for the following medication: Medication: Glipizide Provider: Sushma Escobedo NP Insurance Company Name: [employer] Phone number:[phone] Patient ID number: [id number] Pharmacy Name: [facility] Telephone number: [phone] [facility] Telephone encounter Note * Telephone Encounter - Sara Solis RN - 05/07/2025 11:28 AM EDT Called and left a detailed voicemail notifying patient of providers message. Clinic phone number was left for the patient to call back if she would like the provider to change her medication. Sara Solis RN [facility]06-18-2025 Telephone encounter Note* Telephone Encounter - Rishi Vasquez DO - 05/06/2025 8:20 PM EDT Agree with below Rishi Vasquez DO [facility]06-18-2025 Telephone encounter Note* Telephone Encounter - Any Rodriguez LPN - 05/06/2025 2:55 PM EDT Called pt and message left she can either ask the pharmacy to run the rx with a discount card or call back and ask the provider to change the medicine. [facility]06-18-[facility] Telephone encounter Note* Telephone Encounter - Any Rodriguez LPN - 05/06/2025 1:20 PM EDT Images from the original note were not included. This is the PA response. Close reason: Product not covered by this plan. Prior Authorization not available. Payer: [employer] [phone] Note from payer: This drug/product is not covered under the pharmacy benefit. Prior Authorization is not available. [facility]06-18-2025 Telephone encounter Note* Telephone Encounter - Any Rodriguez LPN - 05/06/2025 1:17 PM EDT Electronic PA requested. [facility]06-18-2025 Telephone encounter Note* Telephone Encounter - Sara Solis RN - 05/06/2025 12:25 PM EDT Pt called in and reports she went in to [facility] and they told her that [...] Escobedo NP Insurance Company Name: [employer] Phone number:[phone] Patient ID number: [id number] Pharmacy Name: [facility] Telephone number: [phone] [facility]06-12-2025 Instructions* Patient Instructions* Ld Escobedo APRN.CNP - 04/30/2025 11:41 AM EDT Send me a blood sugar log in 2 weeks after taking the 10mg of glucotrol xl (5mg twice per day) Follow up as already scheduled with Dr Vasquez documented in this encounterUniversity Hospitals Geneva Medical Center06-12-2025 NoteHNO ID: [id number] Author: LD ESCOBEDO APRN.CNP Service: ? Author Type: Nurse [...] wound dressing changes - Recent visit to technician submarine cable equipment Dr. Irene, who discussed potential surgery for [...] TCU stay metformin was discontinued by Dr. Al d/t her kidney function. Patient forgot to [...] mellitus (HCC) Coronary artery disease Dr. Ch Implementation Services Analyst, 90% blockage- unable to do stenting Diabetes mellitus type 2 in obese Diabetic feet (HCC) Gangrene (HCC) 2012 RIGHT FOOT Hypertension Mild non proliferative diabetic retinopathy (HCC) 06/11/2013 Both eyes, Dr. Ortiz [facility]-03/25/2020 left mild, right moderate Multiple thyroid nodules last US 01/2015 Peripheral artery disease due to Diabetes mellitus, Dr. Kwaku Moscoso Rotator cuff syndrome of left shoulder Dr. Deluna [facility] PAST SURGICAL HISTORY Procedure Laterality Date [...] 04-08-13 ROTATOR CUFF REPAIR 03[facility] ABDL PEL/LXTR ART [...] Take 1 tablet by mouth once daily. Jxyojlca-Wmjr-Vkl-Folic Acid 18-0.4 mg tab Take 1 tablet by mouth once daily. omega-3 fatty acids 1,000 mg cap Take 1 capsule by mouth once d (more content not included)...[facility]06-12-2025 History of Present illness Narrative* Ld Escobedo APRN.[facility] - 04/30/2025 11:26 AM EDT HISTORY OF PRESENT ILLNESS: Diabetes Mellitus: - [...] wound dressing changes - Recent visit to technician submarine cable equipment Dr. Irene, who discussed potential surgery for wound debridement, rightfoot wound is improving -wound infections likely adding to increased blood sugar readings, currently doesn't have infectionand not on antibiotics Prior encounters leading up to this visit: Initial reason for follow up and when starting on glipizide: 04/07 phone encounter- BLOOD GLUCOSE: Currently 140 fasting this morning. Patient reports that sincecoming home from the hospital her blood sugars have been elevated throughout the day. She reports that generally over 200. EX: 04/06/2025 mid-afternoon 440, Bedtime 279, and 04/07/2025 fasting 140. Patient reports that during TCU stay metformin was discontinued by Dr. Al d/t her kidney function. Patient forgot to [...] OD PROTEIN AND 1% MILK. I TOOK BLOODSUGAR 2 HOURS LATER AND IT WAS 404. DON'T UNDERSTAND. SHOULD WE INCREASE THE DOSAGE. WILL AWAIT YOUR REPLY AND SUGGESTIONS. 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 hC Implementation Services Analyst, 90% blockage- unable to do stenting Diabetes mellitus type 2 in obese Diabetic feet (HCC) Gangrene (HCC) 2012 RIGHT FOOT Hypertension Mild non proliferative diabetic retinopathy (HCC) 06/11/2013 Both eyes, Dr. Ortiz [facility]-03/25/2020 left mild, right moderate Multiple thyroid nodules last US 01/2015 Peripheral artery disease due to Diabetes mellitus, Dr. Kwaku Moscoso Rotator cuff syndrome of left shoulder Dr. Regi Thompson [facility] PAST SURGICAL HISTORY Procedure Laterality Date [...] ROTATOR CUFF REPAIR 03/11/[address] [facility] CATHJ EA 1ST ORD [...] Take 1 tablet by mouth once daily. Rhcawdlk-Jlir-Awb-Folic Acid 18-0.4 mg tab Take 1 tablet [...] scheduled or as needed for worsening/no improvement. Ld Escobedo APRN.RAIL CAR REPAIRER Recording using Amarin software for draft documentation of the visit was discussed with the patient/authorized leather goods sales representative; all questions welcomed and answered. Patient/authorized leather goods sales representative agreed to proceed documented in this encounterUniversity Hospitals Geneva [facility] Center06-09-2025 Radiology Diagnostic study note [facility] Imaging Services [address] [place] [id number] Thyroid MR#: [id number] Acct: [id number] Name: GELY NEWMAN Rep #: [id number] : 1950 F 75 From: Courtney Bright MD PCP: Dr. Rishi Vasquez, DO Status: RE G CLI Study:Thyroid Date of Exam: 04/27/25 Exam# [id number] Ordering Dr: Alla Renee MD PROCEDURE: THYROID, [...] No nodules currently meet criteria for FNA. Follow- up is recommended in1 year as per. Note some nodules previously seen were nonvisualized. Recommend specific attention on follow-up. 2. Enlarged gland with homogeneous background appearance. No abnormal vascularity. Management recommendations for TI-RADS 3 findings: FNA if = 2.5 cm; Follow if = 1.5 cm at 1, 3, and5 years. Management recommendations for TI-RADS 4 findings: FNA if = 1.5 cm; Follow if = 1 cm at 1, 2, 3, and 5 years. Enlargment is defined as ?20% increase in at least two nodule dimensions, with aminimal increase of2 mm or ?50% or greater increase in volume. Recommendations per ACR Thyroid Imaging, Reporting and Data System (TI-RADS): White Paper of the ACR TI-RADS Committee, 2017 (https://linkinghub.Kaldoora.com/retrieve/[email or web address]) Reading Location: [id number] CC: Dr. Rishi Vasquez DO; Dr. Ciaran Renee MD ~ Ballistic Expert: Signed [facility]05-29-2025 Telephone encounter Note* Telephone Encounter - Hina Man RN - 04/16/2025 9:31 AM EDT Jessika calling from [facility] to report plan of care for patient and senior care will continue visit patient 1 time a week for 5 weeks. [facility] will work with patient on wound care to bilateral lower extremities. Patient is being follow by Dr. Irene for wound care. No call back needed. Hina Man RN [facility]05-29-2025 Miscellaneous Notes* Telephone Encounter - Hina Man RN - 04/16/2025 9:31 AM EDT Jessika calling from [facility] to report plan of care for patient and senior care will continue visit patient 1 time a week for 5 weeks. [facility] will work with patient on wound care to bilateral lower extremities. Patient is being follow by Dr. Irene for wound care. No call back needed. Hina Man RN documented in this encounterUniversity Hospitals Geneva Medical Center05-20-2025 Telephone encounter Note * Telephone Encounter - Ligia Pantoja RN - 04/07/2025 10:36 AM EDT Patient calls for elevated blood sugar readings as below (above 200 throughout the day, one time yesterday 440). Nurse triage recommends home care. Patient specifically asking for Dr. Vasquez to review and advise on any medication that she can take to assist with bringing sugars back within range.Care advice reviewed. With verbalized understanding. Patient asking [...] TCU stay metformin was discontinued by Dr. Al d/t her kidney function. Patient forgot to askabout blood sugars at follow up hospital visit [...] vomiting Protocols used: Diabetes - High Blood [id number]-ZG [facility]05-20-2025 Miscellaneous Notes* Telephone Encounter - Ligia Pantoja RN - 04/07/2025 10:36 AM EDT Patient calls for elevated blood sugar readings as below (above 200 throughout the day, one time yesterday 440). Nurse triage recommends home care. Patient specifically asking for Dr. Vasquez to review and advise on any medication that she can take to assist with bringing sugars back within range.Care advice reviewed. With verbalized understanding. Patient asking [...] TCU stay metformin was discontinued by Dr. Al d/t her kidney function. Patient forgot to askabout blood sugars at follow up hospital visit [...] vomiting Protocols used: Diabetes - High Blood [id number]-[id number] documented in this encounterUniversity Hospitals Geneva Medical Center05-09-2025 Instructions* Patient Instructions* PodlogYumiko matos APRN.RAIL CAR REPAIRER - 03/27/2025 10:36 AM EDT WHAT YOU [...] review all the medicines you take, even qhcg-ysv-bdzzinv medicines. As you get older, the way medicines work in your body can change. Some medicines, or combinations of medicines, can make you sleepy or dizzy andcan cause you to fall. 3. Have your [...] have certain medical conditions. documented in this encounterUniversity Hospitals Geneva Medical Center05-09-2025 History of Present illness Narrative* Yumiko Whitehead APRN.CNP - 03/27/2025 10:00 AM EDT 03/26/2025 Patient presents with: ER F/U: [facility] ED -03/20/25 Multiple falls, gangrene SADIE feet SUBJECTIVE: This is a 75 year old that is here today for Above Complaints. HOSPITAL/ER FOLLOW UP: Reason for visit: Recurrent falls, Which facility: [facility] transferred to [facility] TCU Date of visit: 03/07/2025-03/11/2025 [facility] then to TCU 03/11/2025-03/19/2025 Diagnosis: UTI, [...] scheduled with Dr. Irene ( foot doctor) andinfectious disease on 03/27/2025. Denies fevers, chills, recurrent falls since discharge. 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 Ch Implementation Services Analyst, 90% blockage- unable to do stenting Diabetes mellitus type 2 in obese Diabetic feet (HCC) Gangrene (HCC) 2012 RIGHT FOOT Hypertension Mild non proliferative diabetic retinopathy (HCC) 06/11/2013 Both eyes, Dr. Ortiz [facility]-03/25/2020 left mild, right moderate Multiple thyroid nodules last US 01/2015 Peripheral artery disease (HCC) due to Diabetes mellitus, Dr. Kwaku Moscoso Rotator cuff syndrome of left shoulder Dr. Deluna [facility] ALLERGIES Sulfa (Sulfonamide Antibiotics) MEDICATIONS Current [...] Take 1 tablet by mouth once daily. Fmmrsdga-Mnkv-Tqd-Folic Acid 18-0.4 mg tab Take 1 tablet [...] WALKER FOLDING WHEELED W/O S Yumiko Whitehead APRN.CNP Prescription instructions reviewed with patient as applicable. [...] which included preparing to see the patient, paea-ie-ejtq patient care, completing clinical documentation, obtaining and/or reviewing separately obtained history, performing a medically appropriate examination, counseling and educating the pat ient/family/caregiver, and ordering medications, tests, or procedures. documented in this encounterUniversity Hospitals Geneva Medical Center05-09-2025 NoteHNO ID: [id number] Author: YUMIKO WHITEHEAD APRN.CNP Service: ? Author Type: Nurse Practitioner Type: Progress Notes Filed: 03/27/2025 11:01 Note Text: 03/26/2025 Patient presents with: ER F/U: [facility] ED -03/20/25 Multiple falls, gangrene SADIE feet SUBJECTIVE: This is a 75 year old that is here today for Above Complaints. HOSPITAL/ER FOLLOW UP: Reason for visit: Recurrent falls, Which facility: [facility] transferred to [facility] TCU Date of visit: 03/07/2025-03/11/2025 [facility] then to TCU 03/11/2025-03/19/2025 Diagnosis: UTI, [...] mellitus (HCC) Coronary artery disease Dr. Ch Implementation Services Analyst, 90% blockage- unable to do stenting Diabetes mellitus type 2 in obese Diabetic feet (HCC) Gangrene (HCC) 2012 RIGHT FOOT Hypertension Mild non proliferative diabetic retinopathy (HCC) 06/11/2013 Both eyes, Dr. Ortiz [facility]-03/25/2020 left mild, right moderate Multiple thyroid nodules last US 01/2015 Peripheral artery disease (HCC) due to Diabetes mellitus, Dr. Kwaku Moscoso Rotator cuff syndrome of left shoulder Dr. Deluna [facility] ALLERGIES Sulfa (Sulfonamide Antibiotics) MEDICATIONS Current [...] Take 1 tablet by mouth once daily. Gwtyindk-Cork-Mvz-Folic Acid 18-0.4 mg tab Take 1 tablet [...] 03/27/2026 Colorectal Cancer Screen (more content not included)...[facility]05-08-2025 Telephone encounter Note* Telephone Encounter - Clary Andres APRN.MARK - 03/26/2025 1:30 PM EDT Agree. BP will be reassessed at appointment tomorrow. Let us know if not addressed at appointment tomorrow. Thank you, Clary Andres APRN.RAIL CAR REPAIRER [facility] Work Phone: 1(762) 517-812205-08-2025 Miscellaneous Notes* Telephone Encounter - Clary Andres APRN.RAIL CAR REPAIRER - 03/26/2025 1:30 PM EDT Agree. BP will be reassessed at appointment tomorrow. Let us know if not addressed at appointment tomorrow. Thank you, Clary Andres APRN.RAIL CAR REPAIRER * Telephone Encounter - Lebron Jacome RN - 03/26/2025 12:44 PM EDT Wendi WERNER - [facility] HH- reporting updated POC: plans to [...] needed if pcp agrees. documented in this encounterUniversity Hospitals [facility] Center05-08-2025 Telephone encounter Note * Telephone Encounter - Lebron Jacome RN - 03/26/2025 12:44 PM EDT Wendi WERNER - [facility] HH- reporting updated POC: plans to [...] is going to talk to provider at [facility] tomorrow about getting a front wheeled walker. No call back needed if pcp agrees. [facility]05-06-2025 Telephone encounter Note* Telephone Encounter - Rishi Vasquez DO - 03/24/2025 5:38 PM EDT Noted Rishi Vasquez DO [facility]05-06-2025 Miscellaneous Notes* Telephone Encounter - Rishi Vasquez DO - 03/24/2025 5:38 PM EDT Noted Rishi Vasquez DO * Telephone Encounter - Ligia Pantoja RN - 03/24/2025 3:00 PM EDT Ishaan PT calling from [facility] to report plan of care for patient and PT will visit patient 2 times a week for two weeks. PT will work with patient on functional mobility. No call back needed. Ligia Pantoja RN documented in this encounterUniversity Hospitals Geneva [facility] Center05-06-2025 Telephone encounter Note * Telephone Encounter - Ligia Pantoja RN - 03/24/2025 3:00 PM EDT Ishaan PT calling from [facility] to report plan of care for patient and PT will visit patient 2 times a week for two weeks. PT will work with patient on functional mobility. No call back needed. Ligia Pantoja RN [facility]05-06-2025 Telephone encounter Note* Telephone Encounter - Stephanie Barron PA-C - 03/24/2025 12:10 PM EDT Noted Stephanie Barron PA-C [facility] Work Phone: 1(981) 734-249005-06-2025 Miscellaneous Notes* Telephone Encounter - Stephanie Barron PA-C - 03/24/2025 12:10 PM EDT Noted Stephanie Barron PA-C * Telephone Encounter - Melly Pinon LPN - 03/23/2025 1:30 PM EDT Tatum with [facility] HH Nursing calls to report she saw pt today for start of care. Nursing will see pt once a week x 2 weeks then twice a week x 1 week, then once a week x 1. Nursingwill be doing wound care and teaching wound prevention and education. Melly Pinon LPN documented in this encounterUniversity Hospitals [facility] Center05-05-2025 Telephone encounter Note * Telephone Encounter - Melly Pinon LPN - 03/23/2025 1:30 PM EDT Tatum with [facility] Nursing calls to report she saw pt today for start of care. Nursing will see pt once a week x 2 weeks then twice a week x 1 week, then once a week x 1. Nursingwill be doing wound care and teaching wound prevention and education. Melly Pinon LPN [facility]05-05-2025 Telephone encounter Note* Telephone Encounter - Ligia Pantoja RN - 03/23/2025 8:29 AM EDT Call placed to Yvonne and notified of below. Ligia Pantoja RN [facility]05-05-2025 Miscellaneous Notes* Telephone Encounter - Ligia Pantoja RN - 03/23/2025 8:29 AM EDT Call placed to Yvonne and notified of below. Ligia Pantoja RN * Telephone Encounter - Rishi Vasquez DO - 03/20/2025 5:03 PM EDT Yes Rishi Vasquez DO * Telephone Encounter - Ligia Pantoja RN - 03/20/2025 12:53 PM EDT Yvonne with [facility] calls to ask if provider would be willing to follow their discharge orders for SN, PT, OT. Patient discharged home today from [facility] TCU after having hospitalization and rehab for falls and UTI. Call back number is [phone]. Ligia Pantoja RN documented in this encounterUniversity Hospitals [facility] Center05-02-2025 Telephone encounter Note * Telephone Encounter - Rishi Vasquez DO - 03/20/2025 5:03 PM EDT Yes Rishi Vasquez DO [facility]05-02-2025 Telephone encounter Note* Telephone Encounter - Ligia Pantoja RN - 03/20/2025 12:53 PM EDT Yvonne with [facility] HH calls to ask if provider would be willing to follow their discharge orders for SN, PT, OT. Patient discharged home today from [facility] TCU after having hospitalization and rehab for falls and UTI. Call back number is [phone]. Ligia Pantoja RN [facility]04-29-2025 [facility]04-29-2025 [facility]04-23-2025 [facility]04-23-2025 Note [facility]04-20-2025 [facility]04-19-2025 Evaluation note* Diagnosis Onset Date Resolution [...] chronic March 07, 2025 4:25pm Atherosclerosis of [place] of both lower extremities with [...] chronic March 11, 2025 5:26pm 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 inactive March 11, 2025 5:26pm Chronic painful diabetic polyneuropathy inactive March 11, 2025 5:26pm Other specified peripheral vascular diseases inactive March 11 5:26pm Atherosclerosis of both lowe r extremities with bilateral ulceration acute April 03, 2025 1 0:32am [place] [facility] Work Phone: 1(730) 588-923404-19-2025 Evaluation note* Diagnosis Onset Date Resolution Status [...] chronic March 07, 2025 4:25pm Atherosclerosis of [place] of both lower extremities with [...] chronic March 11, 2025 5:26pm Atherosclerosis of [place] of both lower extremities with [...] polyneuropathy chronic April 03, 2025 1 0:32am [facility] Work Phone: 1(706) 766-902804-19-2025 Evaluation note* Diagnosis Onset Date Resolution Status [...] chronic March 07, 2025 4:25pm Atherosclerosis of [place] of both lower extremities with [...] chronic March 11, 2025 5:26pm Atherosclerosis of [place] of both lower extremities with [...] 2025 9:17am Atherosclerosis of coronary artery of [place] heart without angina pectoris chronic May 07, 2025 9:17am Essential hypertension chronic Ju 2024 9:17am Hyperlipidemia chronic May 07, 2025 9:17am [facility] Work Phone: 1(582) 210-706804-19-2025 Evaluation note* Diagnosis Onset Date Resolution Status [...] chronic March 07, 2025 4:25pm Atherosclerosis of [place] of both lower extremities with [...] chronic March 11, 2025 5:26pm Atherosclerosis of [place] of both lower extremities with [...] 2025 9:17am Atherosclerosis of coronary artery of [place] heart without angina pectoris chronic May 07, 2025 9:17am Essential hypertension chronic Ju ne 19th, 2025 9:17am Hyperlipidemia chronic May 07, 2025 9:17am Atherosclerosis of both lowe r extremities with bilateral ulceration acute May 13, 2025 3:35pm PAOD (peripheral arterial occlusive disease) acute May 13 3:35pm Carotid artery stenosis chronic J 2024 3:35pm Diabetes mellitus with polyneuropathy chronic May 13, 2025 3:35pm Acute UTI acute May 18 2:09am [facility] Work Phone: 1(754) 414-325404-19-2025 Evaluation note* Diagnosis Onset Date Resolution Status Admit Date Acute UTI acute March 07 4:25pm SHAYY (acute kidney injury) acute March 07, 2025 4:25pm Anemia acute March 07 4:25pm Contusion of left hip acute Apr 2024 4:25pm GI bleed acute March 07 4:25pm Other specified peripheral vascular diseases acute March 07 4:25pm Recurrent falls acute [...] chronic March 07, 2025 4:25pm 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 inactive March 07, 2025 4:25pm Chronic painful diabetic polyneuropathy inactive March 07, 2025 4:25pm SHAYY (acute [...] 2024 5:26pm Multiple falls acute February 5:26pm Other specified peripheral vascular diseases acute March 11 5:26pm PAOD (peripheral arterial occlusive disease) acute March 11, 025 5:26pm Rhabdomyolysis acute February 5:26pm Type 2 diabetes mellitus wit h hyperglycemia acute March 11, 2025 5:26pm Urinary tract infection acute A pril 2024 5:26pm Diabetes mellitus with polyneuropathy chronic March 11, 2025 5:26pm Hyperlipidemia chronic February 5:26pm Osteomyelitis of left foot chronic March 11, 2025 5:26pm 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 inactive March 11, 2025 5:26pm Chronic painful diabetic polyneuropathy inactive March 11, 2025 5:26pm Atherosclerosis of [...] 2025 9:17am Atherosclerosis of coronary artery of [place] heart without angina pectoris chronic May 07, 2025 9:17am Essential hypertension chronic Ju 2024 9:17am Hyperlipidemia chronic May 07, 2025 9:17am Atherosclerosis of both lowe r extremities with bilateral ulceration acute May 13, 2025 3:35pm PAOD (peripheral arterial occlusive disease) acute May 13 3:35pm Carotid artery stenosis chronic J 2024 3:35pm Diabetes mellitus with polyneuropathy chronic May 13, 2025 3:35pm Acute hypoxic respiratory failure acute May 18, 2025 2:09am Acute UTI acute May 18 2:09am Atherosclerosis of both lowe r extremities with bilateral ulceration acute May 18, 2025 2:09am Cellulitis of left ankle acute May 18, 2025 2:09am Sepsis acute May 18 2:09am Type 2 diabetes mellitus wit h foot ulcer acute May 18, 2025 2:09am 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 May 18, 2025 2:09am 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 foot with fat layer exposed chronic May 18, 2025 2:09am Non-pressure chronic ulcer o f other part of right foot with fat layer exposed chronic May 18 2:09am [facility] Work Phone: 1(158) 547-952904-19-2025 Evaluation note* Diagnosis Onset Date Resolution Status Admit Date Acute UTI acute March 07 4:25pm SHAYY (acute kidney injury) acute March 07, 2025 4:25pm Anemia acute March 07 4:25pm Contusion of left hip acute Apr 2024 4:25pm GI bleed acute March 07 4:25pm Other specified peripheral vascular diseases acute March 07 4:25pm Recurrent falls acute [...] chronic March 07, 2025 4:25pm 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 inactive March 07, 2025 4:25pm Chronic painful diabetic polyneuropathy inactive March 07, 2025 4:25pm SHAYY (acute [...] 2024 5:26pm Multiple falls acute February 5:26pm Other specified peripheral vascular diseases acute March 11 5:26pm PAOD (peripheral arterial occlusive disease) acute March 11, 2 025 5:26pm Rhabdomyolysis acute February 5:26pm Type 2 diabetes mellitus wit h hyperglycemia acute March 11, 2025 5:26pm Urinary tract infection acute A pril 2024 5:26pm Diabetes mellitus with polyneuropathy chronic March 11, 2025 5:26pm Hyperlipidemia chronic February 5:26pm Osteomyelitis of left foot chronic March 11, 2025 5:26pm 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 inactive March 11, 2025 5:26pm Chronic painful diabetic polyneuropathy inactive March 11, 2025 5:26pm Atherosclerosis of [...] 2025 9:17am Atherosclerosis of coronary artery of [place] heart without angina pectoris chronic May 07, 2025 9:17am Essential hypertension chronic Ju 2024 9:17am Hyperlipidemia chronic May 07, 2025 9:17am Atherosclerosis of both lowe r extremities with bilateral ulceration acute May 13, 2025 3:35pm PAOD (peripheral arterial occlusive disease) acute May 13 3:35pm Carotid artery stenosis chronic J 2024 3:35pm Diabetes mellitus with polyneuropathy chronic May 13, 2025 3:35pm Acute hypoxic respiratory failure acute May 18, 2025 2:09am Acute UTI acute May 18 2:09am Atherosclerosis of both lowe r extremities with bilateral ulceration acute May 18, 2025 2:09am Cellulitis of left ankle acute May 18, 2025 2:09am Other specified peripheral vascular diseases acute May 18 2:09am Sepsis acute May 18 2:09am Type 2 diabetes mellitus wit h foot ulcer acute May 18, 2025 2:09am 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 Rishi Vasquez DO Status: RE G ER Study:HIP, UNI W/ Pelvis 2-3 Views Date of Ex am: 03/07/25 Exam# [id number] Ordering Dr: Megan Vega PROCEDURE: HIP, UNI [...] obvious acute fracture given limitations. Reading Location: [id number] CC: Dr. Rishi Vasquez DO; LILLIAM Joshua ~ Ballistic Expert: Signed [facility]04-19-2025 Radiology Diagnostic study note [facility] Imaging Services [address] [place] [address] Chest 1 View (Portable) MR#: [id number] Acct: [id number] Name: JONNYGELY Rep #: [id number] : 1950 F 75 From: Renetta Davis MD PCP: Dr. Rishi Vasquez DO Status: RE G ER Study:Chest 1 View (Portable) Date of Exam: 03/07/25 Exam# [id number] Ordering Dr: Megan Vega PROCEDURE: CHEST 1 [...] (Portable) IMPRESSION: No Acute Findings. Reading Location: [facility] CC: Dr. Rishi Vasquez DO; LILLIAM Joshua ~ Ballistic Expert: Signed [facility]04-19-2025 Evaluation note* Diagnosis Onset Date Resolution Status Admit Date Acute UTI acute March 07 4:25pm SHAYY (acute kidney injury) acute March 07, 2025 4:25pm Anemia acute March 07 4:25pm Contusion of left hip acute Apr 2024 4:25pm GI bleed acute March 07 4:25pm Recurrent falls acute February 4:25pm Rhabdomyolysis acute February 4:25pm Chronic kidney disease chronic Ap 2024 4:25pm [facility] Work Phone: 1(381) 423-181802-06-2025 Telephone encounter Note* Telephone Encounter - Sara [...] Solis RN December 25, 2024 5:59 PM [facility]02-06-2025 Miscellaneous Notes* Telephone Encounter - [...] 25, 2024 5:59 PM documented in this encounterUniversity Hospitals Geneva Medical Center01-17-2025 NoteHNO ID: [id number] Author: RISHI VASQUEZ, DO Service: ? Author [...] Seeing Dr. Franco for pain mgmt at [facility] and she is now taking Lyrica [...] mellitus (HCC) Coronary artery disease Dr. Ch Implementation Services Analyst, 90% blockage- unable to do stenting Diabetes mellitus type 2 in obese Diabetic feet (HCC) Gangrene (HCC) 2012 RIGHT FOOT Hypertension Mild non proliferative diabetic retinopathy (HCC) 06/11/2013 Both eyes, Dr. Ortiz [facility]-03/25/2020 left mild, right moderate Multiple thyroid nodules last US 01/2015 Peripheral artery disease (HCC) due to Diabetes mellitus, Dr. Kwaku Moscoso Rotator cuff syndrome of left shoulder Dr. Regi Montes [facility] PAST SURGICAL HISTORY Procedure Laterality Date [...] ROTATOR CUFF REPAIR 03/11/[address] [facility] SLCTV CATHJ EA 1ST ORD [...] 40 mg tablet Take 1 tablet by wei (more content not included)...[facility]01-17-2025 History of Present illness Narrative* VasquezRishi maloney Melinda, DO - 12/05/2024 9:40 AM EST Patient presents with: 6 Month Exam HPI: Gely Newman is a 74 year old female who presents to the office today for review of health conditions. Concerns today: PAD, vascular disease, no recent new ulcerations or skin sores Sciatica, b/l thigh pain, significant, worse with prolonged standing or walking. Seeing Dr. Headley pain mgmt at [facility] and she is now taking Lyrica [...] mellitus (HCC) Coronary artery disease Dr. Ch Implementation Services Analyst, 90% blockage- unable to do stenting Diabetes mellitus type 2 in obese Diabetic feet (HCC) Gangrene (HCC) 2012 RIGHT FOOT Hypertension Mild non proliferative diabetic retinopathy (HCC) 06/11/2013 Both eyes, Dr. Ortiz [facility]-03/25/2020 left mild, right moderate Multiple thyroid nodules last US 01/2015 Peripheral artery disease (HCC) due to Diabetes mellitus, Dr. Kwaku Moscoso Rotator cuff syndrome of left shoulder Dr. Deluna [facility] PAST SURGICAL HISTORY Procedure Laterality Date [...] 04-08-13 ROTATOR CUFF [facility]PA[facility] PEL/LXTR ART [...] Take 1 tablet by mouth once daily. Bpxjcobe-Znza-Afb-Folic Acid 18-0.4 mg tab Take 1 tablet [...] agreed with the plan. Rishi Vasquez DO [address] [place] [address] documented in this encounterUniversity Hospitals Geneva Medical Center10-28-2024 Telephone encounter Note * Telephone Encounter - Silvestre Martinez MA - 09/15/2024 10:28 AM EDT Call to pt and notified her of response below from Provider. Pt verbalized understanding. Silvestre Martinez MA [facility]10-28-2024 Miscellaneous Notes* Telephone Encounter - Silvestre Martinez MA - 09/15/2024 10:28 AM EDT Call to pt and notified her of response below from Provider. Pt verbalized understanding. Silvestre Martinez MA * Telephone Encounter - Rishi Vasquez DO - 09/13/2024 12:24 PM EDT Okay with these considerations by specialist Rishi Vasquez DO * Telephone Encounter - Ligia Pantoja RN - 09/10/2024 2:55 PM EDT Patient [...] out to provider. Requests call back at [phone] with provider response. Ligia Pantoja RN documented in this encounterUniversity Hospitals Geneva Medical Center10-26-2024 Telephone encounter Note * Telephone Encounter - Rishi Vasquez DO - 09/13/2024 12:24 PM EDT Okay with these considerations by specialist Rishi Vasquez DO [facility]10-23-2024 Telephone encounter Note* Telephone Encounter - Ligia Pantoja RN - 09/10/2024 2:55 PM EDT Patient [...] out to provider. Requests call back at [phone] with provider response. Ligia Pantoja RN [facility]10-01-2024 Miscellaneous Notes* Telephone Encounter - Leatha Long LPN - 08/19/2024 2:29 PM EDT Patient notified via voice mail message. Leatha Long LPN * Telephone Encounter - Stephanie Barron PA-C - 08/19/2024 1:35 PM EDT Please let patient know that she can take Fish Oil 1000 mg. Stephanie Barron PA-C 08/19/2024 * Telephone Encounter - Silvestre Martinez MA - 08/18/2024 8:47 AM EDT Pt wrote into the office via [employer] on 08/16/24 with questions regarding medications. Please reviewmessage below and advise. Silvestre Martinez MA Pt message: MANY YEARS AGO, [...] HAS HELPED. GELY NEWMAN documented in this encounterUniversity Hospitals Geneva Medical Center10-01-2024 Telephone encounter Note * Telephone Encounter - Leatha Long LPN - 08/19/2024 2:29 PM EDT Patient notified via voice mail message. Leatha Long LPN [facility]10-01-2024 Telephone encounter Note* Telephone Encounter - Stephanie Barron PA-C - 08/19/2024 1:35 PM EDT Please let patient know that she can take Fish Oil 1000 mg. Stephanie Barron PA-C 08/19/2024 [facility] Work Phone: 1(666) 199-120009-30-2024 Telephone encounter Note* Telephone Encounter - Silvestre Martinez MA - 08/18/2024 8:47 AM EDT Pt wrote into the office via [employer] on 08/16/24 with questions regarding medications. Please reviewmessage below and advise. Silvestre Martinez MA Pt message: MANY YEARS AGO, [...] WENT WELL AND HAS HELPED. GELY NEWMAN [facility]09-30-2024 Telephone encounter Note* Telephone Encounter - Silvestre Martinez MA - 08/18/2024 8:46 AM EDT Turned into TE and routed to PCP to advise. Silvestre Martinez MA [facility]09-30-2024 Miscellaneous Notes* Telephone Encounter - Silvestre Martinez MA - 08/18/2024 8:46 AM EDT Turned into TE and routed to PCP to advise. Silvestre Martinez MA documented in this encounterUniversity Hospitals Geneva Medical Center09-24-2024 Telephone encounter Note * Telephone Encounter - Annmarie López LPN - 08/12/2024 4:58 PM EDT Pt. informed via My Chart [facility]09-24-2024 Miscellaneous Notes* Telephone Encounter - Annmarie Jauregui LPN - 08/12/2024 4:58 PM EDT Pt. informed via My Chart * Telephone Encounter - Rishi Vasquez DO - 08/12/2024 4:54 PM EDT Patient has some chronic kidney disease stage 3, which is from her diabetes. She needs to make surethat the specialist doesn't think this will be a concern. Her GFR is 48 Rishi Vasquez DO * Telephone Encounter - Silvestre Martinez MA - 08/11/2024 3:45 PM EDT Pt wrote this message in addition to TE from 08/08/24. Please review and advise. Messages are fairlysimilar. Silvestre Martinez MA Pt message: DR. VASQUEZ, DR. [...] GELY NEWMAN * Telephone Encounter - Hina Man RN - 08/08/2024 8:23 AM EDT Patient [...] chart message. Please review and advise, Hina Man RN documented in this encounterUniversity Hospitals Geneva Medical Center09-24-2024 Telephone encounter Note * Telephone Encounter - Rishi Vasquez DO - 08/12/2024 4:54 PM EDT Patient has some chronic kidney disease stage 3, which is from her diabetes. She needs to make surethat the specialist doesn't think this will be a concern. Her GFR is 48 Rishi Vasquez DO [facility]09-23-2024 Telephone encounter Note* Telephone Encounter - Silvestre Martinez MA - 08/11/2024 3:45 PM EDT Pt wrote this message in addition to TE from 08/08/24. Please review and advise. Messages are fairlysimilar. Silvestre Martinez MA Pt message: DR. VASQUEZ, DR. FRANCO WANTS ME TO HAVE A PAIN INJECTION ON SUNDAY THE . HE WAS ASKING ME IF I HAVE ISSUES WITH MY KIDNEYS. THAT SCARES ME A LITTLE.. I REALLY DON'T WANT TO DO IT UNLESS YOU SIGN OFF ON IT. THE NAME OF THE MEDICATION IS ISCHROLBARSA. THE [employer] SAID IT IS A STEROID. WHAT DO YOU THINK. I AM GOING TO CALL AND CANCEL THE APPOINTMENT FOR SUNDAY AND RESCHEDULE FOR ANOTHER DAY AND HOPETHAT I HEAR FROM YOU. THANK YOU FOR YOUR TIME AND UNDERSTANDING ON THE ISSUE. WILL AWAIT YOUR REPLY GELY NEWMAN [facility]09-20-2024 Telephone encounter Note* Telephone Encounter - Hina Man RN - 08/08/2024 8:23 AM EDT Patient [...] chart message. Please review and advise, Hina Man RN [facility]07-26-2024 Telephone encounter Note* Telephone Encounter - Annmarie López LPN - 06/13/2024 11:14 AM EDT Needs referral faxed to [facility] for Pain Management. This has been faxed. [facility]07-26-2024 Miscellaneous Notes* Telephone Encounter - Annmarie Jauregui LPN - 06/13/2024 11:14 AM EDT Needs referral faxed to [facility] for Pain Management. This has been faxed. documented in this encounterUniversity Hospitals Geneva Medical Center07-23-2024 NoteHNO ID: [id number] Author: ?, ?, ? Service: ? Author Type: ? Type: Progress Notes Filed: 06/10/2024 13:07 Note Text: POPULATION HEALTH NAVIGATION OUTREACH [facility] Support: Called pt to schedule an appt in Pain Management. Lvm for pt to call [phone]. Reason for Outreach Care Gap/HCC or Scheduling Wellness Visits Care Gaps due: Specialty Scheduling Patient Contacted: Unable or unnecessary to reach patient: Left message [employer] message sent Navigation Signature: Gordon Min June 10, 2024 1:06 [facility]07-23-2024 History of Present illness Narrative* Gordon Min - 06/10/2024 1:06 PM EDT POPULATION HEALTH NAVIGATION OUTREACH [facility] Support: Called pt to schedule an appt in Pain Management. Lvm for pt to call [phone]. Reason for Outreach Care Gap/HCC or Scheduling Wellness Visits Care Gaps due: Specialty Scheduling Patient Contacted: Unable or unnecessary to reach patient: Left message [employer] message sent Navigation Signature: Gordon Min June 10, 2024 1:06 PM documented in this encounterUniversity Hospitals Geneva Medical Center07-23-2024 NotePatient Outreach (NETNAV) GELY NEWMAN ([id number]) 1950 F Date Time Provider Department 06/10/24 NO PCP NETNAV During your visit today, we recorded the following information about you: Gordon Min 06/10/2024 1:07 PM Signed POPULATION HEALTH NAVIGATION OUTREACH [facility] Support: Called pt to schedule an appt in Pain Management. [facility] for pt to call [phone]. Reason for Outreach Care Gap/HCC or Scheduling Wellness Visits Care Gaps due: Specialty Scheduling Patient Contacted: Unable or unnecessary to reach patient: Left message [employer] message sent Navigation Signature: Gordon Min June 10, 2024 1:06 PM Allergies As of Date: 06/10/2024 Noted Allergy Reaction SULFA (SULFONAMIDE ANTIBIOTICS) 01/13/2013 18 - Unknown Comments: childhood Date Reviewed: 06/04/2024 Reviewed by: Annmarie López LPN - Fully Assessed Prescriptions as [...] 1 tablet by mouth once daily. - Eypxuqhr-Vulj-Rvy-Folic Acid 18-0.4 mg tab Take 1 tablet [...] [L72.3, L08.9] 02/26/2019 Coronary artery disease involving [place] heart *05/28/2019 Abnormal urine odor [R82.90] 05/28/2019 [...] lef*06/04/2024 Encounter Status:Closed by GORDON MIN on 06/10/24[facility]07-[facility] Telephone encounter Note* Telephone Encounter - Keisha Coronado RN - 06/04/2024 3:59 PM EDT Spoke with patient. Given message from provider's office. Patient verbalizes understanding. Keisha Coronado RN [facility]07-17-2024 Miscellaneous Notes* Telephone Encounter - Keisha Coronado RN - 06/04/2024 3:59 PM EDT Spoke with patient. Given message from provider's office. Patient verbalizes understanding. Keisha Coronado RN * Telephone Encounter - Ja Gaffney LPN - 06/04/2024 2:49 PM EDT Phoned patient left message to return call and ask to speak to a nurse. * Telephone Encounter - Rishi Vasquez DO - 06/04/2024 2:36 PM EDT Please inform patient that her mammogram is normal/negative. She will need routine screening mammogram in 1 year. Thanks BOB Ernst documented in this encounterUniversity Hospitals Geneva Medical Center07-17-2024 Telephone encounter Note * Telephone Encounter - Ja Gaffney LPN - 06/04/2024 2:49 PM EDT Phoned patient left message to return call and ask to speak to a nurse. [facility]07-17-2024 Telephone encounter Note* Telephone Encounter - Rishi Vasquez DO - 06/04/2024 2:36 PM EDT Please inform patient that her mammogram is normal/negative. She will need routine screening mammogram in 1 year. Thanks Rishi Vasquez DO' [facility]07-17-2024 Note* Letter - Coordinator, Mammography - 06/04/2024 2:01 PM EDT June 04, 2024 PID: [id number] Gely Newman [address] [place] [address] Dear Ms. Newman, We are pleased to [...] report will be kept on [facility] at [facility] as part of your permanent medical record and are available for your continuing care. Thank you for allowing us to help in meeting your health care needs. Sincerely, Dr. Monteiro Interpreting Radiologist [facility] (Normal over 40) [place] [address]-17-2024 Miscellaneous Notes* Letter - Coordinator, Mammography - 06/04/2024 2:01 PM EDT June 04, 2024 PID: [id number] Gely Newman [address] [place] [address] Dear Ms. Newman, We are pleased to [...] report will be kept on [facility] at [facility] as part of your permanent medical record and are available for your continuing care. Thank you for allowing us to help in meeting your health care needs. Sincerely, Dr. Monteiro Interpreting Radiologist [facility] (Normal over 40) documented in this encounterUniversity Hospitals Geneva Medical Center07-17-2024 NoteHNO ID: [id number] Author: RISHI VASQUEZ, DO Service: ? Author [...] mellitus (HCC) Coronary artery disease Dr. Ch Implementation Services Analyst, 90% blockage- unable to do stenting Diabetes mellitus type 2 in obese Diabetic feet (HCC) Gangrene (HCC) 2012 RIGHT FOOT Hypertension Mild non proliferative diabetic retinopathy (HCC) 06/11/2013 Both eyes, Dr. Ortiz [facility]-03/25/2020 left mild, right moderate Multiple thyroid nodules [...] ROTATOR CUFF REPAIR 03/11/[address] [facility] SLCTV CATHJ EA 1ST ORD [...] by mouth two t (more content not included)...[facility]07-17-2024 History of Present illness Narrative* PedroRishi Melinda, DO - 06/04/2024 11:11 AM EDT Patient [...] mellitus (HCC) Coronary artery disease Dr. Ch Implementation Services Analyst, 90% blockage- unable to do stenting Diabetes mellitus type 2 in obese Diabetic feet (HCC) Gangrene (HCC) 2012 RIGHT FOOT Hypertension Mild non proliferative diabetic retinopathy (HCC) 06/11/2013 Both eyes, Dr. Ortiz [facility]-03/25/2020 left mild, right moderate Multiple thyroid nodules last US 01/2015 Peripheral artery disease (HCC) due to Diabetes mellitus, Dr. Kwaku Moscoso Rotator cuff syndrome of left shoulder Dr. Deluna [facility] PAST SURGICAL HISTORY Procedure Laterality Date [...] 04-08-13 ROTATOR CUFF REPAIR 03/11/14 [facility]D ABDL PEL/LXTR ART [...] Take 1 tablet by mouth once daily. Kndcntnl-Rdwg-Sce-Folic Acid 18-0.4 mg tab Take 1 tablet [...] agreed with the plan. Rishi Vasquez DO [address] [place] [address] documented in this encounterUniversity Hospitals Geneva Medical Center07-16-2024 History of Present illness Narrative* Elizabeth Sandoval, RT(R) - 06/03/2024 9:30 AM EDT Radiology [...] PATIENT PRESENTS WITH AN IMPLANTABLE OR ATTACHED COMMUNITY SERVICES OFFICER: No RADIOLOGY DEPARTMENT: Mammography PERIPHERAL IV DATA: Not applicable SIGNED BY: SUE Villarela) June 03, 2024 9:08 AM documented in this encounterUniversity Hospitals Geneva Medical Center07-16-2024 NoteHNO ID: [id number] Author: ELIZABETH SANDOVAL RT(R) Service: ? Author [...] PATIENT PRESENTS WITH AN IMPLANTABLE OR ATTACHED COMMUNITY SERVICES OFFICER: No RADIOLOGY DEPARTMENT: Mammography PERIPHERAL IV DATA: Not applicable SIGNED BY: RT Mono(Chau) June 03, 2024 9:08 [facility]07-01-2024 Telephone encounter Note* Telephone Encounter - Joanie Rosario LPN - 05/19/2024 12:29 PM EDT Pt was notified of such. [facility]07-01-2024 Miscellaneous Notes* Telephone Encounter - Joanie Rosario LPN - 05/19/2024 12:29 PM EDT Pt was notified of such. * Telephone Encounter - Clary Andres APRN.CNP - 05/19/2024 11:31 AM EDT Labs are signed as pended. Please make sure she knows these are to be fasting. Thank you, Clary Andres APRN.RAIL CAR REPAIRER * Telephone Encounter - Silvestre Martinez MA - 05/19/2024 9:16 AM EDT Pt sent in [employer] message asking for lab orders for her upcoming appt 06/04/24. She would like these ordered so she can schedule lab appt. Please notify her once these have been ordered. Labs pended,please review and file. Silvestre Martinez MA documented in this encounterUniversity Hospitals Geneva Medical Center07-01-2024 Telephone encounter Note * Telephone Encounter - Clary Andres APRN.RAIL CAR REPAIRER - 05/19/2024 11:31 AM EDT Labs are signed as pended. Please make sure she knows these are to be fasting. Thank you, Clary Andres APRN.RAIL CAR REPAIRER [facility]07-01-2024 Telephone encounter Note* Telephone Encounter - Silvestre Martinez MA - 05/19/2024 9:16 AM EDT Pt sent in [employer] message asking for lab orders for her upcoming appt 06/04/24. She would like these ordered so she can schedule lab appt. Please notify her once these have been ordered. Labs pended,please review and file. Silvestre Martinez MA [facility]07-01-2024 Telephone encounter Note* Telephone Encounter - Silvestre Martinez MA - 05/19/2024 9:15 AM EDT Started TE and routed to Provider. Silvestre Martinez MA [facility]07-01-2024 Miscellaneous Notes* Telephone Encounter - Silvestre Martinez MA - 05/19/2024 9:15 AM EDT Started TE and routed to Provider. Silvestre Martinez MA documented in this encounterUniversity Hospitals Geneva Medical Center05-06-2024 Telephone encounter Note * Telephone [...] Please advise. Thank you. Michaela Millan MA. [facility]05-06-2024 Miscellaneous Notes* Telephone Encounter - [...] you. Michaela Millan MA. documented in this encounterUniversity Hospitals Geneva Medical Center05-02-2024 History of Present illness Narrative* Anselmo Marr, PT - 03/20/2024 2:31 PM EDT Images [...] Therapeutic exercise, Neuromuscular re- education, Manual therapy, Self-prison management, and Gait training. Updated: 02/14/24 and [...] source of deviations. TREATMENT: Therapeutic Exercise: 1: [employer] StepOne seat #11 x6 minutes 2: supine [...] 1043 Anselmo Marr PT documented in this encounterUniversity Hospitals Geneva Medical Center04-22-2024 History of Present illness Narrative* Keisha Guzman PTA - 03/10/2024 11:34 AM EDT Program_ID:[id number] Access Code: [email or web address] URL: [email or web address] Date: 03-10-2024 Prepared By: Anselmo Marr Program [...] deviations identified in the objective section above. Self-Mcc Management: 1: Pt's questions answered in regards [...] 1144 ANISA Rodriguez PT documented in this encounterUniversity Hospitals Geneva Medical Center04-18-2024 History of Present illness Narrative* [...] LEVEL OF FUNCTION: TREATMENT: Therapeutic Exercise: 1: [employer] StepOne seat #11 x6 minutes (Pt provided [...] 1044 Anselmo Marr PT documented in this encounterUniversity Hospitals Geneva Medical Center03-21-2024 Miscellaneous Notes* Telephone Encounter - Lebron Jacome RN - 02/07/2024 2:13 PM EDT Faxed general surgery referral and US thyroid/parathyroid to Dr. Kwaku Moscoso, per patient request (reports Dr. Moscoso never received them). . Confirmation received. * Telephone Encounter - RandallauraSelma - 01/14/2024 2:38 PM EST Faxed Selma Kelley documented in this encounterUniversity Hospitals Geneva Medical Center03-19-2024 History of Present illness Narrative* Keisha Guzman PTA - 02/05/2024 9:22 AM EDT Program_ID:[id number] Access Code: [email or web address] URL: [email or web address] Date: 02-05-2024 Prepared By: Anselmo Marr Program [...] use of cane. TREATMENT: Therapeutic Exercise: 1: [employer] StepOne seat #12 x6 minutes (1:1 throughout.) [...] : 842 Session Stop Time : 929 KeishaANISA Clayton PT documented in this encounterUniversity Hospitals Geneva Medical Center03-13-2024 History of Present illness Narrative* [...] cane to therapy. TREATMENT: Therapeutic Exercise: 1: [employer] StepOne seat #12 x6 minutes (1:1 throughout. [...] 1050 Anselmo Marr PT documented in this encounterUniversity Hospitals Geneva Medical Center03-11-2024 Miscellaneous Notes* Telephone Encounter - [...] you. Laura Isaac LPN. documented in this encounterUniversity Hospitals Geneva Medical Center03-06-2024 History of Present illness Narrative* Anselmo Marr, PT - 01/23/2024 1:06 PM EST Episode [...] LEVEL OF FUNCTION: TREATMENT: Therapeutic Exercise: 1: [employer] StepOne seat #12 x6 minutes (1:1 throughout. [...] Marr PT - 01/23/2024 10:31 AM EST Program_ID:[id number] Access Code: [email or web address] URL: [email or web address] Date: 01-23-2024 Prepared By: Anselmo Marr Program [...] sets - 10 reps documented in this encounterUniversity Hospitals Geneva Medical Center02-27-2024 History of Present illness Narrative* [...] Planned: 6 Planned Treatment Interventions: Therapeutic exercise (80804), Neuromuscular re- education (81330), Manual therapy (29369), Therapeutic activities (15833), Self- prison management (33907), Gait Training (14741), Patient/Family/Caregiver Education, Body Mechanics Training, Functional training [...] Pain awakens Pain: Pain Pain Level: 6 (10 currently) Pain Location: Low Back/Lumbar Spine - [...] Marr PT - 01/15/2024 10:42 AM EST Program_ID:[id number] Access Code: [email or web address] URL: [email or web address] Date: 01-15-2024 Prepared By: Anselmo Marr Program Notes Exercises - Hooklying Single Knee to Chest Stretch - 3 x daily - 7 x weekly - sets - 3 reps - Supine Double Knee to Chest - 3 x daily - 7 x weekly - sets - 3 reps documented in this encounterUniversity Hospitals Geneva Medical Center02-22-2024 Miscellaneous Notes* Telephone Encounter - Keisha Coronado RN - 01/10/2024 3:22 PM EST Spoke with patient. Given message from provider's office. Patient verbalizes understanding. Transferred to [facility] to schedule GEN SURG appointment. Keisha Coronado RN * Telephone Encounter - Ja Gaffney LPN - 01/10/2024 10:40 AM EST [...] of the nodules esophoria documented in this encounterUniversity Hospitals Geneva Medical Center02-14-2024 Miscellaneous Notes* Telephone Encounter - Ira Moreno RN - 01/02/2024 6:25 PM EST patient notified of information and would like scheduled for therapy. Patient can do Mon-Wed-Fri 8-12 or -Th 930-12 * Telephone Encounter - Selma Benson MA - 01/02/2024 6:18 PM EST Left message to contact office Selma Benson * Telephone Encounter - Rishi Vasquez DO [...] Aileen Romero LPN * Telephone Encounter - Annmarie López LPN - 01/01/2024 2:34 PM EST Message left to return call. * Telephone Encounter - Stephanie Barron PA-C - 01/01/2024 12:58 PM EST I [...] a consult to PT or pain mgmt? Stephanie Barron PA-C 01/01/2024 * Telephone Encounter - Betsey Kerr LPN - 12/27/2023 2:04 PM EST Corinna message: I HAVE COME TO THE CONCLUSION [...] THANK YOU, GELY NEWMAN documented in this encounterUniversity Hospitals Geneva Medical Center02-08-2024 Miscellaneous Notes* Telephone Encounter - Betsey Kerr LPN - 12/27/2023 2:04 PM EST Sent to provider in phone encounter. documented in this encounterUniversity Hospitals Geneva Medical Center02-01-2024 History of Present illness Narrative* [...] PATIENT PRESENTS WITH AN IMPLANTABLE OR ATTACHED COMMUNITY SERVICES OFFICER: No RADIOLOGY DEPARTMENT: Ultrasound PERIPHERAL IV DATA: Not applicable SIGNED BY: Rebecca Puente RDMS T December 20, 2023 4:21 PM documented in this encounterUniversity Hospitals Geneva Medical Center01-22-2024 NoteIMPRESSION: DEGENERATIVE CHANGE IN ALIGNMENT ABNORMALITIES DESCRIBED. PROGRESSION PRIOR STUDY. NO ACUTE ABNORMALITY Ballistic Expert: SANDRA Transcribe Date/Time: Dec 10 2023 1:03P Dictated by : CHASE SUE MD This examination was interpreted and the report reviewed and electronically signed by: CHASE SUE MD on Dec 10 2023 1:17PM EST DIVISION OF [id number] History of Present illness Narrative* Sienna Mendoza [...] 10, 2023 8:44 AM documented in this encounterUniversity Hospitals Geneva Medical Center11-15-2023 Miscellaneous Notes* Telephone Encounter - Ja Gaffney LPN - 10/03/2023 3:43 PM EST [...] medication: Not applicable Please advise. Thank you. Ja Gaffney LPN. Patient said she will run out of medication before the end of the week. documented in this encounterUniversity Hospitals Geneva Medical Center10-10-2023 Miscellaneous Notes* Telephone Encounter - Yani Watts APRN.CNP - 08/28/2023 7:55 AM EDT Noted, thank you. Yani Watts APRN.RAIL CAR REPAIRER * Telephone Encounter - Lebron Jacome RN [...] results to Dr. Membreno at fax # [phone]. Confirmation received. * Telephone Encounter - Ja Gaffney LPN - 08/23/2023 10:39 AM EDT [...] Rishi Vasquez DO * Telephone Encounter - Silvestre Martinez Ma - 08/18/2023 11:23 AM EDT Office received wound Cx results ordered by you. Seen this happened previously but pt was followingwith someone else. Unsure if you are following on this or not but wanted to make you aware. Silvestre Martinez Ma Scan on 08/18/2023 9:38 AM by Provider, External, SARIAH: Miscellaneous Lab documented in this encounterUniversity Hospitals Geneva Medical Center09-13-2023 Miscellaneous Notes* Telephone Encounter - Annmarie López LPN - 08/01/2023 11:15 AM EDT [...] EDT Pt had blood work done at [facility]. View External Labs - Microbiology [ID [id number]] View External Labs - Miscellaneous Lab [ID [id number]] documented in this encounterUniversity Hospitals Geneva Medical Center08-22-2023 Miscellaneous Notes* Telephone Encounter - Kristie Delarosa LPN - 07/10/2023 11:54 AM EDT Pt notified of same, verbalizes understanding. Kristie Delarosa LPN * Telephone Encounter - Danyelle Tripp PA-C - 07/10/2023 11:02 AM EDT Let patient know that repeat Mamm/US is normal. Return to yearly screenings. documented in this encounterUniversity Hospitals Geneva Medical Center08-22-2023 History of Present illness Narrative* [...] 10, 2023 2:57 PM documented in this encounterUniversity Hospitals Geneva Medical Center08-22-2023 History of Present illness Narrative* Elizabeth Sandoval RT(Chau) - 07/10/2023 10:00 AM EDT Radiology Service [...] 10, 2023 9:56 AM documented in this encounterUniversity Hospitals Geneva Medical Center07-17-2023 History of Present illness Narrative* VasquezRishi, DO - 06/04/2023 11:42 AM EDT Patient presents with: 6 Month Exam HPI: Gely Newman is a 73 year old female who presents to the office today for review of health conditions. Concerns today: Carotid artery US on 06/22/[address] Moscoso, surgeon, on 07/10/23 for follow up CAD, has recently seen Dr. Schultz/Rick Bergeron MEDICAL AIDE, no recent new testing, no recent symptoms [...] Dr. Moscoso upcoming Thyroid nodules, stable since 2016. Had NM uptake scan which showed it [...] mellitus (HCC) Coronary artery disease Dr. Ch Implementation Services Analyst, 90% blockage- unable to do stenting Diabetes mellitus type 2 in obese (HCC) Diabetic feet (HCC) Gangrene (HCC) 2012 RIGHT FOOT Hypertension Mild non proliferative diabetic retinopathy (HCC) 06/11/2013 Both eyes, Dr. Ortiz [facility]-03/25/2020 left mild, right moderate Multiple thyroid nodules last 01/2015 Peripheral artery disease (HCC) due to Diabetes mellitus, Dr. Kwaku Moscoso Rotator cuff syndrome of left shoulder Dr. Deluna [facility] PAST SURGICAL HISTORY Procedure Laterality Date [...] ROTATOR CUFF REPAIR 03/11/[address] [facility] SLCTV CATHJ EA 1ST ORD [...] Take 1 tablet by mouth once daily. Jzpwjxxy-Lafu-Wph-Folic Acid 18-0.4 mg tab Take 1 tablet [...] agreed with the plan. Rishi Vasquez DO [address] [place] [address] documented in this encounterUniversity Hospitals Geneva Medical Center07-11-2023 Miscellaneous Notes* Telephone Encounter - Jessie Collins LPN - 05/29/2023 4:26 PM EDT Spoke with pt and information listed below given. Pt verbalizes understanding. Pt transferred to scheduling Jessie Collins LPN * Telephone Encounter - Annmarie López LPN - 05/29/2023 3:16 PM EDT Message left to return call. * Telephone Encounter - Danyelle Tripp PA-C - 05/29/2023 1:55 PM EDT Mammogram shows asymmetry in R breast. Need additional views. Danyelle Tripp PA-C documented in this encounterUniversity Hospitals Geneva Medical Center07-11-2023 Miscellaneous Notes* Letter - Coordinator, Mammography - 05/29/2023 12:21 PM EDT May 30, 2023 PID: [id number] Gely Newman [address] [place] [address] Dear Ms. Newman, Your recent breast imaging exam on 05/29/2023 showed a possible finding that requires additional imaging studies for a complete evaluation. Most such findings are probably benign (not cancer). If you have a healthcare provider who ordered/prescribed your screening mammogram: Please call [phone] or [phone]: [phone] to schedule an appointment for your additional [...] and reports are kept on file at [facility] as part of your permanent medical record, and are available for your continuing care. Thank you for allowing us to help in meeting your health care needs. Sincerely, Dr. Stubbs Interpreting Radiologist [facility] (Additional imaging) documented in this encounterUniversity Hospitals Geneva Medical Center07-11-2023 History of Present illness Narrative* [...] 29, 2023 9:58 AM documented in this encounterUniversity Hospitals Geneva Medical Center07-10-2023 Miscellaneous Notes* Telephone Encounter - Michaela Millan Ma - 05/28/2023 10:17 AM EDT Last office visit: 12/05/22 F/u scheduled: 06/04/23 Michaela Millan Ma documented in this encounterUniversity Hospitals Geneva Medical Center04-24-2023 Miscellaneous Notes* Telephone Encounter - Jessie Collins LPN - 03/12/2023 1:57 PM EDT Reina with Dr. Garner's office called and identified pt with name and date of . Pt getting DM shoes from them and they received everything except the office note from Dr. Sebastian 12-11-22. Requested this be faxed to them. Faxed to [phone]. Done. Jessie Collins LPN documented in this encounterUniversity Hospitals Geneva Medical Center03-22-2023 Miscellaneous Notes* Telephone Encounter - Clary Andres APRN.CNP - 02/07/2023 3:05 PM EDT Order signed. Clary Andres APRN.CNP * Telephone Encounter - Selma Benson - 02/05/2023 1:21 PM EDT Order pended Selma Benson documented in this encounterUniversity Hospitals Geneva Medical Center03-06-2023 Miscellaneous Notes* Telephone Encounter - Jessie Collins LPN - 01/22/2023 3:41 PM EST Spoke with pt and information listed below given. Pt verbalizes understanding. Jessie Collins LPN * Telephone Encounter - Any Rodriguez LPN - 01/22/2023 2:17 PM EST Message left for pt to return call to a nurse. * Telephone Encounter - Yani Watts APRN.CNP - 01/22/2023 11:46 AM EST The following approved medication requests have been transmitted electronically. Requested Prescriptions Signed Prescriptions Disp Refills glimepiride (AMARYL) 4 mg tablet 30 tablet 11 Sig: Take 1 tablet by mouth daily with breakfast. Authorizing Provider: RISHI VAQSUEZ Ordering User: YANI WATTS APRN.CNP * Telephone Encounter - Lebron Jacome RN - 01/22/2023 9:37 AM EST [employer] / Insurance- reports glimepiride 2 mg will need a PA because in insurance will only cover 30 pills for 30 days, because 4 mg is available. Asking if pcp wants to order the 4 mg daily instead or do you want to do a PA? Reference # [id number] documented in this encounterUniversity Hospitals Geneva Medical Center02-20-2023 Miscellaneous Notes* Telephone Encounter - Joanie Rosario LPN - 01/08/2023 11:53 AM EST [facility]--12/05/22 Nov--06/04/23 Last refill--07/17/22 180 with 0 refills Last labs--12/14/22 documented in this encounterUniversity Hospitals Geneva Medical Center02-17-2023 Miscellaneous Notes* Telephone Encounter - Annmarie López LPN - 01/05/2023 10:21 AM EST [...] needed Rishi Vasquez DO documented in this encounterUniversity Hospitals Geneva Medical Center02-16-2023 Miscellaneous Notes* Telephone Encounter - Joanie Rosario LPN - 01/04/2023 11:56 AM EST Spoke with pt gave information provided. [pt voices understanding. * Telephone Encounter - Rishi Vasquez DO - 01/04/2023 11:28 AM EST Please inform patient that her NM thyroid uptake scan shows no concerning abnormal uptake Rishi Vasquez DO documented in this encounterUniversity Hospitals Geneva Medical Center02-09-2023 History of Present illness Narrative* [...] 09:22 PATIENT DISCHARGED TO: Ambulatory patient, left [place] department area. A Diagnostic radioactive procedure has taken place, with no further precautions necessary other than routine body substance precautions. More information regarding radiation safety can be found usingthis link: [email or web address] SIGNATURE: ISMAEL Mcpherson PATIENT NAME: Gely Newman DATE: December 28, 2022 TIME: 09:25 AM PAGER/CONTACT #: documented in this encounterUniversity Hospitals Geneva Medical Center02-01-2023 History of Present illness Narrative* [...] 20, 2022 11:23 AM documented in this encounterUniversity Hospitals Geneva Medical Center01-19-2023 Miscellaneous Notes* Telephone Encounter - Joanie Rosario LPN - 12/07/2022 10:41 AM EST Called pt left message as such. * Telephone Encounter - Yani Watts APRN.CNP - 12/07/2022 10:09 AM EST No need for another carotid ultrasound at this time. Yani Watts APRN.MARK * Telephone Encounter - Joanie Rosario LPN - 12/07/2022 9:57 AM EST Mrs. Newman came to [facility] , she states was scheduled for ultrasound [...] to Rebeka to view. documented in this encounterUniversity Hospitals Geneva Medical Center01-17-2023 History of Present illness Narrative* [...] mellitus (HCC) Coronary artery disease Dr. Ch Implementation Services Analyst, 90% blockage- unable to do stenting Diabetes mellitus type 2 in obese (HCC) Diabetic feet (HCC) Gangrene (HCC) 2012 RIGHT FOOT Hypertension Mild non proliferative diabetic retinopathy (HCC) 06/11/2013 Both eyes, Dr. Ortiz [facility]-03/25/2020 left mild, right moderate Multiple thyroid nodules last US 01/2015 Peripheral artery disease (HCC) due to Diabetes mellitus, Dr. Kwaku Moscoso Rotator cuff syndrome of left shoulder Dr. Deluna [facility] PAST SURGICAL HISTORY Procedure Laterality Date [...] 04-08-13 ROTATOR CUFF REPAIR 03/11/14 Dr. Deluna [facility] CATHJ EA 1ST ORD ABDL PEL/LXTR [...] Code E11.51 Insulin: No blood sugar diagnostic ([employer] OrthopaedicsTOUCH ULTRA TEST) test strip Use as instructed [...] Take 1 tablet by mouth once daily. Barkoezb-Cybu-Sjj-Folic Acid 18-0.4 mg tab Take 1 tablet [...] hydration, potential risk of IV dye Rishi Vasquez, DO To ER if develops chest pain, shortness of breath, or severe worsening of symptoms. Discussed risks, benefits, alternatives, and potential side effects of medications. Patient expressed understanding and agreed with the plan. Rishi Vasquez DO [address] [place] [address] documented in this encounterUniversity Hospitals Geneva Medical Center11-05-2022 History of Present illness Narrative* Camille Mitchell PA-C - 09/23/2022 10:45 AM EDT This note was created using Pressabl[employer]. Subjective Gely Newman is a 72 year [...] mellitus (HCC) Coronary artery disease Dr. Ch Implementation Services Analyst, 90% blockage- unable to do stenting Diabetes mellitus type 2 in obese (HCC) Diabetic feet (HCC) Gangrene (HCC) 2012 RIGHT FOOT Hypertension Mild non proliferative diabetic retinopathy (HCC) 06/11/2013 Both eyes, Dr. Ortiz [facility]-03/25/2020 left mild, right moderate Multiple thyroid nodules last US 01/2015 Peripheral artery disease (HCC) due to Diabetes mellitus, Dr. Kwaku Moscoso Rotator cuff syndrome of left shoulder Dr. Deluna [facility] Current Outpatient Medications Medication Sig Dispense [...] Take 1 tablet by mouth once daily. Pqseoqkn-Mikp-Mvj-Folic Acid 18-0.4 mg tab Take 1 tablet [...] 04-08-13 ROTATOR CUFF REPAIR [facility] PEL/LXTR ART [...] CULTURE Camille Mitchell PA-C documented in this encounterUniversity Hospitals Geneva Medical Center10-20-2022 Miscellaneous Notes* Telephone Encounter - Sara Solis RN - 09/07/2022 11:05 AM EDT Pt called and is notified of providers results and instructions. Pt voices understanding. Pt sent information through [employer] per Pt request. Sara Solis RN * Telephone Encounter - Ja Gaffney LPN - 09/07/2022 9:45 AM EDT [...] would like her to discuss with her windows vmware engineer to decrease this dose to 20 mg a day due to these abnormal kidney levels. Also her TSH is slightly low. I don't think she is taking any thyroid medication. Need for recheck of thyroid labs in 1 month as ordered Rishi Vasquez DO documented in this encounterUniversity Hospitals Geneva Medical Center09-27-2022 History of Present illness Narrative* Camille Mitchell PA-C - 08/15/2022 1:07 PM EDT Images from the original note were not included. This note was created using [employer]. Subjective Gely Newman is a 72 year [...] mellitus (HCC) Coronary artery disease Dr. Ch Implementation Services Analyst, 90% blockage- unable to do stenting Diabetes mellitus type 2 in obese (HCC) Diabetic feet (HCC) Gangrene (HCC) 2012 RIGHT FOOT Hypertension Mild non proliferative diabetic retinopathy (HCC) 06/11/2013 Both eyes, Dr. Ortiz [facility]-03/25/2020 left mild, right moderate Multiple thyroid nodules last US 01/2015 Peripheral artery disease (HCC) due to Diabetes mellitus, Dr. Kwaku Moscoso Rotator cuff syndrome of left shoulder Dr. Deluna [facility] Current Outpatient Medications Medication Sig Dispense [...] Take 1 tablet by mouth once daily. Qnsjzvxh-Hgtn-Ocq-Folic Acid 18-0.4 mg tab Take 1 tablet [...] 04-08-13 ROTATOR CUFF REPAIR 03/11/14 Dr. Deluna [facility] SLCTV CATHJ EA 1ST ORD ABDL PEL/LXTR ART [facility] 06-07-16 APLL FAMILY HISTORY Problem Relation Age [...] RIGHT Camille Mitchell PA-C documented in this encounterUniversity Hospitals Geneva Medical Center07-30-2022 History of Present illness Narrative* Kena Sims, TAY.RAIL CAR REPAIRER - 06/17/2022 8:33 AM EDT CC: Patient [...] mellitus (HCC) Coronary artery disease Dr. Ch Implementation Services Analyst, 90% blockage- unable to do stenting Diabetes mellitus type 2 in obese (HCC) Diabetic feet (HCC) Gangrene (HCC) 2012 RIGHT FOOT Hypertension Mild non proliferative diabetic retinopathy (HCC) 06/11/2013 Both eyes, Dr. Ortiz [facility]-03/25/2020 left mild, right moderate Multiple thyroid nodules last US 01/2015 Peripheral artery disease (HCC) due to Diabetes mellitus, Dr. Kwaku Moscoso Rotator cuff syndrome of left shoulder Dr. Regi Montes [facility] PAST SURGICAL HISTORY Procedure Laterality Date [...] ROTATOR CUFF REPAIR 03/11/[address] [facility] SLCTV CATHJ EA 1ST ORD ABDL PEL/LXTR ART [facility] 06-07-16 APLL ALLERGIES Sulfa (Sulfonamide Antibiotics) MEDICATIONS [...] Take 1 tablet by mouth once daily. Zxhijofb-Ldgy-Ggy-Folic Acid (CENTRUM COMPLETE) 18-0.4 mg tab Take [...] plan. Kena Sims APRN.CNP documented in this encounterUniversity Hospitals Geneva Medical Center07-18-2022 Miscellaneous Notes* Telephone Encounter - Sara Solis RN - 06/05/2022 4:39 PM EDT Pt called and is notified of providers results and instructions. Pt voices understanding. Pt sent through to scheduling to set up diagnostic and US of R breast. Sara Solis RN * Telephone Encounter - Yani Watts APRN.CNP - 06/05/2022 4:32 PM EDT Please let Gely know that there is an asymmetry noted in her right breast on the mammogram. Radiology is requesting additional imaging. Please assist her to schedule this. Ynai Watts APRN.CNP documented in this encounterUniversity Hospitals Geneva Medical Center07-18-2022 Miscellaneous Notes* Letter - Mammography Coordinator - 06/05/2022 12:46 PM EDT June 05, 2022 PID: [id number] Gely Newman [address] [place] [address] Dear Ron Claudioey, Your recent breast imaging exam on 06/05/2022 showed a possible finding that requires additional imaging studies for a complete evaluation. Most such findings are probably benign (not cancer). If you have a healthcare provider who ordered/prescribed your screening mammogram: Please call [phone] or [phone]: [phone] to schedule an appointment for your additional [...] and reports are kept on file at [facility] as part of your permanent medical record, and are available for your continuing care. Thank you for allowing us to help in meeting your health care needs. Sincerely, Dr. Benjamin Interpreting Radiologist [facility] (Additional imaging) documented in this encounterUniversity Hospitals Geneva Medical Center07-18-2022 History of Present illness Narrative* [...] 05, 2022 10:08 AM documented in this encounterUniversity Hospitals Geneva Medical Center07-13-2022 History of Present illness Narrative* Rishi Vasquez, - 05/31/2022 10:58 AM EDT Patient presents with: 6 Month Exam HPI: Gely Newman is a 72 year old female who presents to the office today for review of health conditions. Concerns today: PAD, hx of foot ulcerations, currently with one on her right foot, managed by [employer] Hx of CAD, PAD, sees [facility] Analyst group. Will have follow up in the [...] mellitus (HCC) Coronary artery disease Dr. Ch Implementation Services Analyst, 90% blockage- unable to do stenting Diabetes mellitus type 2 in obese (HCC) Diabetic feet (HCC) Gangrene (HCC) 2012 RIGHT FOOT Hypertension Mild non proliferative diabetic retinopathy (HCC) 06/11/2013 Both eyes, Dr. Ortiz [facility]-03/25/2020 left mild, right moderate Multiple thyroid nodules last US 01/2015 Peripheral artery disease (HCC) due to Diabetes mellitus, Dr. Kwaku Moscoso Rotator cuff syndrome of left shoulder Dr. Regi Mont[facility] PAST SURGICAL HISTORY Procedure Laterality Date [...] ROTATOR CUFF REPAIR 03/11/[address] [facility] SLCTV CATHJ EA 1ST ORD [...] Code E11.51 Insulin: No blood sugar diagnostic ([facility]itus OrthopaedicsTOUCH ULTRA TEST) test strip Use as instructed [...] Take 1 tablet by mouth once daily. Aaqauxup-Pmaj-Ohv-Folic Acid (CENTRUM COMPLETE) 18-0.4 mg tab Take [...] arise. - Discussed diabetic education issues of terminal carman diabetic complications, diet, medications- side effects and [...] - stable 8. Coronary artery disease involving [place] heart, unspecified vessel or lesion type, unspecified whether angina present - ICD9: 414.01, ICD10: I25.10 - f/u with Implementation Services Analyst, no new symptoms 9. Fatigue, unspecified type [...] with the plan. Rishi Vasquez DO [address] [place] [address] documented in this encounterUniversity Hospitals Geneva Medical Center07-06-2022 Miscellaneous Notes* Telephone Encounter - Yvonne Garcia - 05/24/2022 1:32 PM EDT LM on patient's VM to schedule consult for colonoscopy. First attempt. * Telephone Encounter - Garrick La - 05/24/2022 1:25 PM EDT Patient due for 5 year follow up colonoscopy. Patient is not appropriate for open access. Please schedule office consult Garrick La documented in this encounterUniversity Hospitals Geneva Medical Center06-14-2022 Miscellaneous Notes* Telephone Encounter - [...] you. Jessie Collins LPN documented in this encounterUniversity Hospitals Geneva Medical Center06-06-2022 Miscellaneous Notes* Telephone Encounter - [...] BY MOUTH THREE TIMES DAILY TARAH: Yes MAYO-12/02/21 Labs-03/07/22 NOV-05/31/22 med filled 03/23/22 ends 04/22/22 Please review and advise. Georgia Nicole LPN documented in this encounterUniversity Hospitals Geneva Medical Center05-05-2022 Miscellaneous Notes* Telephone Encounter - Yani Watts APRN.MARK - 03/23/2022 9:39 AM EDT The following approved medication requests have been transmitted electronically. Signed Prescriptions Disp Refills gabapentin (NEURONTIN) 600 mg tablet 90 tablet 0 Sig: Take 1 tablet by mouth three times daily for 30 days. TARAH: No Authorizing Provider: YANI WATTS APRN.CNP PDMP website checked and validated. All prescriptions have been APPROPRIATELY filled. No suspiciousactivity was identified. 03/23/2022 by Yani Watts CNP. * Telephone Encounter - Joanie Rosario LPN - 03/23/2022 8:36 AM EDT mayo-- 12/02/21 Last refill-- 12/08/21 90 with 0 refills Last labs-- 03/07/22 documented in this encounterUniversity Hospitals Geneva Medical Center05-05-2022 Miscellaneous Notes* Telephone Encounter - Joanie Rosario LPN - 03/23/2022 8:43 AM EDT mayo-- 12/02/21 Last refill-- 04/06/21 30 with 11 refills Last labs- 03/07/22 documented in this [facility]05-04-2022 Evaluation note* Diagnosis Stage 3 chronic kidney disease, unspecified whether stage 3a or 3b CKD (HCC)- Primary 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) Type II or unspecified type diabetes mellitus with peripheral circulatory disorders, not stated as uncontrolled documented in this encounter [place] [address]-08-2022 Miscellaneous Notes* Telephone Encounter - Selma Sanders Ma - 02/24/2022 10:31 AM EDT Pt notified and verbalized understanding. The following approved medication requests have been transmitted electronically. Signed Prescriptions Disp Refills metFORMIN (GLUCOPHAGE) 500 mg tablet 60 tablet 3 Sig: Take 1 tablet by mouth twice daily with meals. TARAH: No Authorizing Provider: YANI WATTS Ma * Telephone Encounter - Yani Watts APRN.CNP - 02/24/2022 10:25 AM EDT Please have her increase her metformin to twice daily, with meals. The following approved medication requests have been transmitted electronically. Signed Prescriptions Disp Refills metFORMIN (GLUCOPHAGE) 500 mg tablet 60 tablet 3 Sig: Take 1 tablet by mouth twice daily with meals. TARAH: No Authorizing Provider: YANI WATTS APRN.CNP * Telephone Encounter - Selma Sanders Ma - 02/24/2022 10:20 AM EDT Patient notified and verbalized understanding. Pt is willing to increase dosage of metformin but will not take more than 1,000mg total. Please advise Selma Sanders Ma * Telephone Encounter - Yani Watts APRN.CNP - 02/24/2022 10:05 AM EDT [...] in 2 weeks. Otherwise, no other concerns. Yani Watts APRN.MARK [facility] of Past illness Narrative* Problem Noted Date Resolved Date Benign paroxysmal positional vertigo 11/14/2017 11/30/2021 Essential hypertension 11/30/2015 6 documented as of this encounter (statuses as of 03/22/2022) [facility] of Past illness Narrative* Problem Noted Date Resolved Date Benign paroxysmal positional vertigo 11/14/2017 11/30/2021 Essential hypertension 11/30/2015 6 documented as of this encounter (statuses as of 03/23/2022) [facility] History of Past illness Narrative* Problem Noted Date Resolved Date Benign paroxysmal positional vertigo 11/14/2017 11/30/2021 Essential hypertension 11/30/2015 6 documented as of this encounter (statuses as of 04/24/2022) [facility] History of Past illness Narrative* Problem Noted Date Resolved Date Benign paroxysmal positional vertigo 11/14/2017 11/30/2021 Essential hypertension 11/30/2015 6 documented as of this encounter (statuses as of 04/26/2022) [facility] of Past illness Narrative* Problem Noted Date Resolved Date Benign paroxysmal positional vertigo 11/14/2017 11/30/2021 Essential hypertension 11/30/2015 6 documented as of this encounter (statuses as of 05/02/2022) [facility] illness Narrative* Problem Noted Date Resolved Date Benign paroxysmal positional vertigo 11/14/2017 11/30/2021 Essential hypertension 11/30/2015 6 documented as of this encounter (statuses as of 05/24/2022) [place] [address]-27-2017 History of Past illness Narrative* Problem Noted Date Resolved Date Benign paroxysmal positional vertigo 11/14/2017 11/30/2021 Essential hypertension 11/30/2015 6 documented as of this encounter (statuses as of 05/31/2022) [facility] of Past illness Narrative* Problem Noted Date Resolved Date Benign paroxysmal positional vertigo 11/14/2017 11/30/2021 Essential hypertension 11/30/2015 6 documented as of this encounter (statuses as of 06/06/2022) [facility] of Past illness Narrative* Problem Noted Date Resolved Date Benign paroxysmal positional vertigo 11/14/2017 11/30/2021 Essential hypertension 11/30/2015 6 documented as of this encounter (statuses as of 06/06/2022) [facility] of Past illness Narrative* Problem Noted Date Resolved Date Benign paroxysmal positional vertigo 11/14/2017 11/30/2021 Essential hypertension 11/30/2015 6 documented as of this encounter (statuses as of 06/07/2022) [facility] of Past illness Narrative* Problem Noted Date Resolved Date Benign paroxysmal positional vertigo 11/14/2017 11/30/2021 Essential hypertension 11/30/2015 6 documented as of this encounter (statuses as of 06/17/2022) [place] [address]-27-2017 History of Past illness Narrative* Problem Noted Date Resolved Date Benign paroxysmal positional vertigo 11/14/2017 11/30/2021 Essential hypertension 11/30/2015 6 documented as of this encounter (statuses as of 08/15/2022) [facility] illness Narrative* Problem Noted Date Resolved Date Benign paroxysmal positional vertigo 11/14/2017 11/30/2021 Essential hypertension 11/30/2015 6 documented as of this encounter (statuses as of 09/07/2022) [facility] of Past illness Narrative* Problem Noted Date Resolved Date Benign paroxysmal positional vertigo 11/14/2017 11/30/2021 Essential hypertension 11/30/2015 6 documented as of this encounter (statuses as of 09/09/2022) [facility] of Past illness Narrative* Problem Noted Date Resolved Date Benign paroxysmal positional vertigo 11/14/2017 11/30/2021 Essential hypertension 11/30/2015 6 documented as of this encounter (statuses as of 09/23/2022) [facility] Past illness Narrative* Problem Noted Date Resolved Date Benign paroxysmal positional vertigo 11/14/2017 11/30/2021 Essential hypertension 11/30/2015 6 documented as of this encounter (statuses as of 12/05/2022) [address]27-2017 History of Past illness Narrative* Problem Noted Date Resolved Date Benign paroxysmal positional vertigo 11/14/2017 11/30/2021 Essential hypertension 11/30/2015 6 documented as of this encounter (statuses as of 12/07/2022) [place] [address]-27-2017 History of Past illness Narrative* Problem Noted Date Resolved Date Benign paroxysmal positional vertigo 11/14/2017 11/30/2021 Essential hypertension 11/30/2015 6 documented as of this encounter (statuses as of 01/04/2023) [facility] of Past illness Narrative* Problem Noted Date Resolved Date Benign paroxysmal positional vertigo 11/14/2017 11/30/2021 Essential hypertension 11/30/2015 6 documented as of this encounter (statuses as of 01/05/2023) [place] [address]-27-2017 History of Past illness Narrative* Problem Noted Date Resolved Date Benign paroxysmal positional vertigo 11/14/2017 11/30/2021 Essential hypertension 11/30/2015 6 documented as of this encounter (statuses as of 01/09/2023) [place] [address]-27-2017 History of Past illness Narrative* Problem Noted Date Resolved Date Benign paroxysmal positional vertigo 11/14/2017 11/30/2021 Essential hypertension 11/30/2015 6 documented as of this encounter (statuses as of 02/07/2023) [facility] Narrative* Problem Noted Date Resolved Date Benign paroxysmal positional vertigo 11/14/2017 11/30/2021 Essential hypertension 11/30/2015 6 documented as of this encounter (statuses as of 03/02/2023) [facility] Past illness Narrative* Problem Noted Date Resolved Date Benign paroxysmal positional vertigo 11/14/2017 11/30/2021 Essential hypertension 11/30/2015 6 documented as of this encounter (statuses as of 03/12/2023) [facility] Narrative* Problem Noted Date Resolved Date Benign paroxysmal positional vertigo 11/14/2017 11/30/2021 Essential hypertension 11/30/2015 6 documented as of this encounter (statuses as of 03/12/2023) [facility] illness Narrative* Problem Noted Date Diagnosed Date Resolved Date Benign paroxysmal positional vertigo 11/14/2017 11/30/2021 Essential hypertension 11/30/201510/24 documented as of this encounter (statuses as of 05/28/2023) [facility] Narrative* Problem Noted Date Diagnosed Date Resolved Date Benign paroxysmal positional vertigo 11/14/2017 11/30/2021 Essential hypertension 11/30/201510/24 documented as of this encounter (statuses as of 05/30/2023) [facility] Past illness Narrative* Problem Noted Date Diagnosed Date Resolved Date Benign paroxysmal positional vertigo 11/14/2017 11/30/2021 Essential hypertension 11/30/201510/24 documented as of this encounter (statuses as of 05/31/2023) [facility] Past illness Narrative* Problem Noted Date Diagnosed Date Resolved Date Benign paroxysmal positional vertigo 11/14/2017 11/30/2021 Essential hypertension 11/30/201510/24 documented as of this encounter (statuses as of 06/05/2023) [facility] of Past illness Narrative* Problem Noted Date Diagnosed Date Resolved Date Benign paroxysmal positional vertigo 11/14/2017 11/30/2021 Essential hypertension 11/30/201510/24 documented as of this encounter (statuses as of 07/10/2023) [address]27-2017 History of Past illness Narrative* Problem Noted Date Diagnosed Date Resolved Date Benign paroxysmal positional vertigo 11/14/2017 11/30/2021 Essential hypertension 11/30/201510/24 documented as of this encounter (statuses as of 08/01/2023) [facility] Past illness Narrative* Problem Noted Date Diagnosed Date Resolved Date Benign paroxysmal positional vertigo 11/14/2017 11/30/2021 Essential hypertension 11/30/201510/24 documented as of this encounter (statuses as of 08/28/2023) [address]27-2017 History of Past illness Narrative* Problem Noted Date Diagnosed Date Resolved Date Benign paroxysmal positional vertigo 11/14/2017 11/30/2021 Essential hypertension 11/30/201510/24 documented as of this encounter (statuses as of 08/31/2023) [place] [address]27-2017 History of Past illness Narrative* Problem Noted Date Diagnosed Date Resolved Date Benign paroxysmal positional vertigo 11/14/2017 11/30/2021 Essential hypertension 11/30/201510/24 documented as of this encounter (statuses as of 09/23/2023) [facility] Narrative* Problem Noted Date Diagnosed Date Resolved Date Benign paroxysmal positional vertigo 11/14/2017 11/30/2021 Essential hypertension 11/30/201510/24 documented as of this encounter (statuses as of 09/23/2023) [facility] of Past illness Narrative* Problem Noted Date Diagnosed Date Resolved Date Benign paroxysmal positional vertigo 11/14/2017 11/30/2021 Essential hypertension 11/30/201510/24 documented as of this encounter (statuses as of 09/23/2023) [facility] of Past illness Narrative* Problem Noted Date Diagnosed Date Resolved Date Benign paroxysmal positional vertigo 11/14/2017 11/30/2021 Essential hypertension 11/30/201510/24 documented as of this encounter (statuses as of 09/23/2023) [facility] of Past illness Narrative* Problem Noted Date Diagnosed Date Resolved Date Benign paroxysmal positional vertigo 11/14/2017 11/30/2021 Essential hypertension 11/30/201510/24 documented as of this encounter (statuses as of 09/23/2023) [address]27-2017 History of Past illness Narrative* Problem Noted Date Diagnosed Date Resolved Date Benign paroxysmal positional vertigo 11/14/2017 11/30/2021 Essential hypertension 11/30/201510/24 documented as of this encounter (statuses as of 10/04/2023) [address]27-2017 History of Past illness Narrative* Problem Noted Date Diagnosed Date Resolved Date Benign paroxysmal positional vertigo 11/14/2017 11/30/2021 Essential hypertension 11/30/201510/24 documented as of this encounter (statuses as of 12/21/2023) [place] [address]27-2017 History of Past illness Narrative* Problem Noted Date Diagnosed Date Resolved Date Benign paroxysmal positional vertigo 11/14/2017 11/30/2021 Essential hypertension 11/30/201510/24 documented as of this encounter (statuses as of 12/27/2023) [place] [address]-2017 History of Past illness Narrative* Problem Noted Date Diagnosed Date Resolved Date Benign paroxysmal positional vertigo 11/14/2017 11/30/2021 Essential hypertension 11/30/201510/24 documented as of this encounter (statuses as of 01/16/2024) [place] [address]27-2017 History of Past illness Narrative* Problem Noted Date Diagnosed Date Resolved Date Benign paroxysmal positional vertigo 11/14/2017 11/30/2021 Essential hypertension 11/30/201510/24 documented as of this encounter (statuses as of 01/23/2024) [place] [address]27-2017 History of Past illness Narrative* Problem Noted Date Diagnosed Date Resolved Date Benign paroxysmal positional vertigo 11/14/2017 11/30/2021 Essential hypertension 11/30/201510/24 documented as of this encounter (statuses as of 01/28/2024) [place] [address]27-2017 History of Past illness Narrative* Problem Noted Date Diagnosed Date Resolved Date Benign paroxysmal positional vertigo 11/14/2017 11/30/2021 Essential hypertension 11/30/201510/24 documented as of this encounter (statuses as of 01/30/2024) [facility] Narrative* Problem Noted Date Diagnosed Date Resolved Date Benign paroxysmal positional vertigo 11/14/2017 11/30/2021 Essential hypertension 11/30/201510/24 documented as of this encounter (statuses as of 02/05/2024) [facility] of Past illness Narrative* Problem Noted Date Diagnosed Date Resolved Date Benign paroxysmal positional vertigo 11/14/2017 11/30/2021 Essential hypertension 11/30/201510/24 documented as of this encounter (statuses as of 02/07/2024) [facility] of Past illness Narrative* Problem Noted Date Diagnosed Date Resolved Date Benign paroxysmal positional vertigo 11/14/2017 11/30/2021 Essential hypertension 11/30/201510/24 documented as of this encounter (statuses as of 02/22/2024) [facility] of Past illness Narrative* Problem Noted Date Diagnosed Date Resolved Date Benign paroxysmal positional vertigo 11/14/2017 11/30/2021 Essential hypertension 11/30/201510/24 documented as of this encounter (statuses as of 03/06/2024) [facility] History of Past illness Narrative* Problem Noted Date Diagnosed Date Resolved Date Benign paroxysmal positional vertigo 11/14/2017 11/30/2021 Essential hypertension 11/30/201510/24 documented as of this encounter (statuses as of 03/07/2024) [facility] Michaela Joshua [facility] Note Date/Time May 21, 2025 12:18 pm [facility] Medical Records Department [address] [place] [address] Discharge Summary 05/21/25 1134 MR#: [id number] Acct: [id number] Name: GELY NEWMAN Rep #:[id number] : 1950 75 From: Michaela Joshua DO PCP: Dr. Rishi Vasquez DO Status:AD M [place] [facility] [id number] Providers Date of Admission: 05/18/25 Primary Care Physician: Dr. Rishi Vasquez DO Consultations 05/18/25 03:19 Consult: Infectious Disease Routine Consulting Provider: Kwaku Mendoza Reason for Consult: Infected diabetic foot wounds EMERGENT Consult: No MD Notified: Yes Date Notified: 05/18/25 Time Notified: 08:30 Method of Notification: Answering Service Consult: Onc/Wound/medical social worker Routine Comment: Consult: Podiatry Routine Consulting Provider: Patel Irene Reason for Consult: Infected diabetic foot wound EMERGENT Consult: No MD Notified: Yes Date Notified: 05/18/25 Time Notified: 02:10 Method of Notification: Text Consult: Vascular Surgery Routine Consulting Provider: Russell Clement Reason for Consult: Infected diabetic foot wounds, known marked BL LE PAD EMERGENT Consult: No MD Notified: Yes Date Notified: 05/18/25 Time Notified: 02:10 Method of Notification: Text 05/18/25 07:08 Consult: Flight Engineer Inspector / Pulmonary Medicine Routine Consulting Provider: Intensivists/Pulmonary Med Reason for Consult: Sepsis EMERGENT Consult: No MD Notified: Yes Date Notified: 05/18/25 Time Notified: 07:08 Method of Notification: Verbal Reason For Visit: DIABETIC INFECTED FOOT WOUND, UTI, RHABDO Diagnosis Discharge Diagnosis (1) 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 foot with fat layer exposed: Status: Chronic Code(s): L97.522 - 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 foot with fat layer exposed (2) Non-pressure chronic ulcer of other part of right foot with fat layer exposed: Status: Chronic Code(s): L97.512 - Non-pressure chronic ulcer of other part of right foot with fat layer exposed (3) Non-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: Status: Chronic Code(s): L97.322 - Non-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 (4) Other specified peripheral vascular diseases: Status: Acute Code(s): I73.89 - Other specified peripheral vascular diseases Plan Sepsis secondary to suspected urinary tract infection - Culture shows yeast, gram-positive maycol, and gram-negative maycol - Sepsis syndrome has resolved - Continue broad-spectrum antibiotics with Zosyn and linezolid per infectious disease - CT of the abdomen pelvis performed without contrast to assess for any renal abnormalities or calculi/hydronephrosis/pyelonephritis that may need intervention due to the fact she developed sepsis - No significant abnormalities were noted SHAYY secondary to ATN - Most recent baseline serum creatinine is between 0.9 and 1.1 - on presentation serum creatinine is 1.96 - Creatinine seems to be stabilizing at 1.4-1.5 range currently being 1.49 suspect this may be her new baseline - Avoid nephrotoxins as able - Continue IV fluids as ordered Peripheral vascular disease with bilateral lower extremity ulceration and wounds - Cultures are showing Staph aureus in the form of MRSA - Vascular surgery is following - Wounds are stable and do not appear to be the etiology of her sepsis - Plan is for revascularization next Sunday as long as she is medically stable - May go home and come back as an outpatient if medically stable for discharge prior to this - Continue aspirin and Plavix Diabetic foot ulcer bilateral lower extremities - Wounds overall appear stable - will continue antibiotic regimen -Cultures with MRSA - OR later today with podiatry - Outpatient plan for revascularization is next Sunday as noted above Acute hypovolemic hyponatremia - Resolved CAD/essential hypertension/hyperlipidemia - Continue home metoprolol - Restart home atorvastatin - Continue home aspirin - Continue Plavix Chronic normocytic anemia secondary to iron deficiency - Hemoglobin appears to be stable - continue home iron supplementation and vitamin C supplementation which will assist with iron absorption COPD with history of tobacco use - Continue aerosols as ordered Anxiety/depression - Patient currently is not on any medication for this DVT prophylaxis - Continue heparin 3 times daily CODE STATUS -Full code is verified on admission Medications at Discharge Home Medications aspirin 81 mg tablet,delayed release 81 mg PO QHS blood clots 01/13/14 multivitamin with folic acid 400 mcg tablet 1 tab PO DAILY Supplement 01/13/14 omega-3 fatty acids-fish oil 340 mg-1,000 mg capsule 1 ea PO DAILY supplement 06/29/16 ferrous sulfate 325 mg (65 mg iron) tablet 325 mg PO DAILY SUPPLEMENT 08/15/18 ascorbic acid (vitamin C) 500 mg tablet 1,000 mg PO LUNCH Supplement 11/25/20 calcium carbonate (Calcium 600) 600 mg PO DAILY supplement 12/29/21 clopidogrel 75 mg tablet 75 mg PO DAILY Blood clots #90 tabs 10/23/24 Lactobacillus acidophilus (Acidophilus capsule) 600 mg PO QDAY gi 03/07/25 pregabalin 100 mg capsule 100 mg PO TID nerve pain 03/07/25 simvastatin 20 mg tablet 20 mg PO QHS cholesterol #30 tabs 03/23/25 nystatin 100,000 unit/gram topical powder (Nyamyc) 1 applic topical BID PRN rash05/07/25 acetaminophen 650 mg tablet,extended release 650 mg PO Q12H PRN pain 05/08/25 amlodipine 5 mg tablet 5 mg PO DAILY HTN #90 tabs 05/12/25 metoprolol succinate 25 mg tablet,extended release 24 hr 12.5 mg (1/2 x 25 mg) PO DAILY HEART RATE #45 tabs 05/12/25 glimepiride 2 mg tablet 2 mg PO BID 05/18/25 collagenase clostridium histo. 250 unit/gram topical ointment (Santyl) 1 applic topical DAILY #15 grams 05/21/25 linezolid 600 mg tablet 600 mg PO BID #21 tabs 05/21/25 Hospital Course Operations - (Procedure #1: Incision bone cortex, left ankle Procedure #2: Surgical skin graft site prepped, left leg Procedure #3: Application of skin graft substitute, left leg Procedure #4: Surgical skin graft site prep, left foot Procedure #5: Application of skin graft substitute, left foot Procedure #6:) Procedures - (Chest x-ray/abdominal/pelvic CT/CTA chest/ankle x-ray/foot x-ray) Summary of Care Provided Minutes Spent on Discharge: 38 Hospital Course: Patient is a 75-year-old white female with severe peripheral vascular disease who presents emergency department [facility] on 05/18/2025 with achief complaint of debility and weakness. She has chronic bilateral lower extremity diabetic ulcerations and foot wounds that she follows with Dr. Irene for at the wound center and podiatry office. She has a new recent ulcer at the left medial ankle where her offloading shoe had been running. She had been having difficulty ambulating a fall the day previous [place] [facility] [place] about 11[facility]15 AM. She was found later in the evening by family and they helped her to the chair. She continued to have ongoing difficulty with fever and podiatry started her on oral doxycycline and asked her evaluated at the emergency department. Vital signs on presentation showed temperature of 97.9 but she had a Tmax of 100.3. Heart rate was 71, respiratory was 18, blood pressure was 118/52 and pulse ox was 96% on room air. CBC showed a normal whitecount with an anemia with a hemoglobin of 8.9 which is stable and chronic. CMP showed a mild hyponatremia with a sodium of 131 serum bicarb of 17.5 and a BUN of 78 with a serum creatinine of 1.76. Blood glucose was 253. Lactic acid was less than 1. She did have a left shift in the differential. Serum creatinine was above her baseline which appears to be between 1.4 and 1.5. Urine was suggestive of infection and she was pancultured. Wound was also cultured. She did result positive for 1 of 2 blood cultures for MRSA that resulted positive on05/21/2025. I discussed this with infectious disease. They have had her on linezolid and she has been responding clinically so they feel that she should beable to continue this at the time of discharge and go home on a course of linezolid at 600 mg p.o. twice daily for another 10 days. We wrote a prescription for 21 tablets that she will get tonight's dose in addition to those 10 days. We did draw blood cultures, and I will follow these, prior to discharge to assess for clearance and per discussion with infectious disease we may need to extend course if they remain positive but he feels confident that she will be negative based on her clinical response. Wound cultures are consistent for this as well. She was initially met in the medical floor and required transfer to the intensive care unit briefly for sepsis. She responded well to fluid resuscitation and did not require pressors. Podiatry and infectious disease, as noted above, were consulted. With the transfer to the ICU critical care medicine was consulted as well. She required ICU care for only about 24 hours and we will transfer to medical floor. [facility] by podiatry on 05/20/2025 where she had extensive I&D with bone cortex biopsy and surgical skin graft site prepped with application of skin graft in multiple areas. Postoperative dressing changes and weightbearing status are per podiatry. He will follow-up with her outpatient after discharge. She is also set up for upcoming vascular surgery on Sunday of next week 05/26/2025. Initial recommendation for her was to be discharged either SNF or transitional care unit. She was adamant that she would only go to transitional care unit. We were not able to accommodate her here as we have no beds available. We did offer [place] transitional care unit and she stated this was too far away and did not want to go there. Unfortunately, she is out of network for the transitionalcare unit in [place]. Given the fact that she refused to go anywhere else she was sent home health care with dressing changes per Dr. Irene's recommendation and weightbearing status per Dr. Irene's recommendation. She is to follow-up with Dr. Irene as he recommended, primary care physician in the next [address] Clement for surgery next Sunday. Patient was discharged home with prescription for antibiotics and sample. Repeat cultures were obtained prior todischarge and I will follow these for clearance to ensure a longer course of antibiotics is not required and will discuss with Dr. Clement if needed. It was initially thought that her sepsis was related to urinary tract infection as her urine looked dirty however growth is not significant enough to consider this a source of infection. Discharge diagnoses: Sepsis MRSA bacteremia SHAYY secondary to ATN Infected foot wounds Peripheral vascular disease with bilateral lower extremity ulceration and wounds Bilateral lower extremity diabetic foot ulcers Acute hypovolemic hyponatremia-resolved CAD Essential hypertension Hyperlipidemia Chronic normocytic anemia Iron deficiency COPD History of tobacco abuse Anxiety Depression Physical Exam Const alert, oriented x3 and no apparent distress; Negative for healthy appearing or well nourished Constitutional Narrative: Thin, white female, sitting up in a chair at the bedside, sitting up in a chair at the bedside getting patient ready, appears comfortable, nontoxic General Appearance: cooperative, comfortable, well kempt and well developed Exam Limitations: no limitations HEENT normocephalic, head/scalp atraumatic, hearing grossly normal bilaterally and moist oral mucous membranes HEENT Narrative: Dentures in place, Mallampati 2, no thrush Eyes Eyes Narrative: Conjunctiva are mildly pale bilaterally, no scleral icterus Neck supple Neck Narrative: Trachea midline, no thyroid enlargement Resp normal respiratory effort, no retractions, no use of accessory muscles and clearto auscultation bilaterally Resp Narrative: Diffusely diminished but clear Auscultation: Negative for rales, rhonchi or wheezes Cardio regular rate, regular rhythm, S1 normal heart sound, S2 normal heart sound, no murmurs, no rub, no gallops and no clicks GI normal to inspection, nondistended, normoactive bowel sounds, soft to palpation and non-tender Extremity no clubbing, cyanosis or edema Extremity Narrative: Diminished cap refill bilateral lower extremities left greater than right, radial pulses are 2+ bilaterally Skin Skin Narrative: Patient with offloading brace left lower extremity for wounds, 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with multiple amputations, decreased cap refill as noted above, postoperative dressing in place bilateral lower extremities Neuro oriented x3, moves all extremities and no focal motor deficits Neuro Narrative: Generalized weakness no focal deficit Speech: speech normal Psych affect normal Psych Narrative: Pleasant, interacts appropriately Weight / BMI Weight Weight: 73.1 kg Body Mass Index (BMI) 25.9 ABG / Lab / Microbiology Data 05/21/25 04:27 05/21/25 04:27 Laboratory: Laboratory Results - last 24 hr 05/20/25 11:41: POC Glucose 133 H 05/20/25 17:42: POC Glucose 119 H 05/20/25 22:19: POC Glucose 229 H 05/21/25 04:27: WBC 4.6, RBC 2.82 L, Hgb 8.0 L, Hct 25.4 L, MCV 90.1, MCH 28.4, MCHC 31.5 L, RDW Std Deviation 53.0 H, RDW Coeff of Jorgito 15.9 H, Plt Count 167, MPV 11.8, Immature Gran % (Auto) 0.900, Neut % (Auto) 64.8, Lymph % (Auto) 17.7 L, Scurry % (Auto) 13.6 H, Eos % (Auto) 2.6, Baso % (Auto) 0.4, Absolute Neuts (auto) 3.0, Absolute Lymphs (auto) 0.82 L, Nucleated RBC % 0, Sodium 138, Potassium 4.3, Chloride 107, Carbon Dioxide 20.9 L, Anion Gap 10, BUN 52 H, Creatinine 1.37 H, Estim Creat Clear Calc 37.42 L, Est GFR (MDRD) Non-Af 41 L, BUN/Creatinine Ratio 37.7 H, Glucose 192 H, Calcium 8.9 05/21/25 06:34: POC Glucose 160 H Microbiology: Microbiology 05/20/25 Unknown Bone - Ankle Gram Stain - Final 05/20/25 Unknown Bone - Ankle Wound Culture - Preliminary Gram positive organism 05/18/25 00:50 Urine Catheter - Catheter Urine Culture - Preliminary Gram negative maycol Gram positive maycol Yeast Like Organism 05/17/25 22:33 Blood Culture (Wb) - Right Wrist Blood Culture - Final Meth. resistant Staph. aureus 05/17/25 22:54 Blood Culture (Wb) - Left Forearm Blood Culture - Preliminary No growth in 48 hours. 05/18/25 04:00 Wound - Right Foot Gram Stain - Final 05/18/25 04:00 Wound - Right Foot Wound Culture - Final Meth. resistant Staph. aureus Coag Negative Staph 05/18/25 04:00 Wound - Right Foot Skin and Soft Tissue MRSA/MSSA (PCR - Final Meth. resistant Staph. aureus D/C Instructions Discharge Diet: Low fat / Low cholesterol and 1800 Calorie Control Diet Discharge Activity: Use Walker (Weightbearing status as noted in discharge instructions) DC O2, CPAP, BIPAP Needs Home O2 Discharge instructions: No DC home with Oxygen: No Meaningful Use Info Meaningful Use Meaningful Use Diagnoses (Choose all that apply): None applicable Ischemic Stroke Statin Dosing Therapy Reference: STATIN DOSE THERAPY REFERENCE: * Patients > 75 years receive moderate or high dose statin therapy. * Patients 75 years or YOUNGER should receive HIGH intensity statin dose unless contraindicated. You will be required to document reason for non-treatment if statin daily dose does not meet guidelines. HIGH DOSE STATIN THERAPY DAILY Atorvastatin > than or = to 40 mg Rosuvastatin > than or = to 20 mg Amlodipine + Atorvastatin > than or = to 2.5/40 mg Ezetimibe + Simvastatin 10/80 mg Simvastatin 80mg Discharge Plan Admission Admit Date/Time: 05/18/25 02:09 Primary Reason for Your Visit: Generalized Weakness/Debility Attending Provider: Michaela Joshua Primary Care Provider: Rishi Vasquez Consulting Providers: Maddie Merchant; Kwaku Mendoza; Patel Irene; Russell Clement Instructions Additional Instructions / Restrictions: Bilateral wound care dressings: 1. Remove all outer dressing and soft dressing to the level of the Adaptic. 2. Gently peel off the Adaptic without disturbing the underlying Integra graft. 3. Do not remove the Integra graft as it is secured with jacob. There could be some mild odor noticed but this is completely normal with this type of graft.Gently clean off the bilateral foot and ankle with sterile saline and do not disturb the graft please. 4. Cover the graft on the bilateral lower extremity with Adaptic, cover with 4 x 4's, secured in place with light Kerlix wrap, under casting to the bilateral lower extremity and secured in place with two 4 inch Buzz bandages from sulcus oftoes to mid calf bilateral, With light compression. We need to make sure that we are controlling her swelling to the left and right lower extremities. Patient is planning to have vascular surgery with revascularization on 05/26/2025. Weightbearing for both legs as noted below -RLE with surgical shoe full weight bearing/weightbearing as tolerated with surgical shoe on -Weightbearing on left lower extremity toe-touch touch weightbearing with offloading boot in place Discharge Orders/Prescriptions Prescriptions: New Santyl 250 unit/gram Ointment 1 applic topical DAILY Qty: 15 0RF Protocol: *Topical Application Instructions APPLICATION INSTRUCTIONS: apply nickel thick layer to left posterior lower leg, left medial ankle, and left heel Rx Instructions: Apply to wound as instructed linezolid 600 mg Tablet 600 mg PO BID Qty: 21 0RF Continued calcium carbonate [Calcium 600] 600 mg calcium (1,500 mg) tablet 600 mg PO DAILY nystatin [Nyamyc] 100,000 unit/gram powder 1 applic topical BID PRN (Reason: rash) Protocol: *Topical Application Instructions APPLICATION INSTRUCTIONS: apply to abdominal folds, under breasts aspirin 81 MG tablet 81 mg PO QHS multivitamin with folic acid 1 TABLET tablet 1 tab PO DAILY Patient Comments: vitamin supplement ascorbic acid (vitamin C) 500 mg tablet 1,000 mg PO LUNCH Patient Comments: supplement omega-3 fatty acids-fish oil 1 EACH capsule 1 ea PO DAILY Patient Comments: supplement ferrous sulfate 325 MG tablet 325 mg PO DAILY pregabalin 100 mg capsule 100 mg PO TID Acidophilus Capsule 600 mg PO QDAY acetaminophen 650 mg tablet extended release 650 mg PO Q12H PRN (Reason: pain) glimepiride 2 mg tablet 2 mg PO BID clopidogrel 75 mg tablet 75 mg PO DAILY Qty: 90 3RF Patient Comments: ask about stopping simvastatin 20 mg tablet 20 mg PO QHS Qty: 30 11RF amlodipine 5 mg tablet 5 mg PO DAILY Qty: 90 3RF metoprolol succinate 25 mg tablet extended release 24 hr 12.5 mg PO DAILY Qty: 45 3RF Referrals / Follow Up: Rishi Vasquez DO [Primary Care Provider] - Within 2 Weeks Patel Irene DPM [Med Staff - Active Staff] - See Referral Note (Per Dr. Irene recommendations) Urbano,Russell, MD [Med Staff - Active Staff] - See Referral Note (For surgery on Sunday) Disposition Disposition (needs filled in before D/C Order can be placed): Home Health Service Charges/Coding Visit Charges Inpatient E&M: 24467 Disch Hosp >30min 05/21/25 1218 <Electronically signed by Michaela Joshua DO> Cosigner Signature (if applicable): CC: Dr. Rishi Vasquez DO; Dr. Michaela Joshua DO~ Signed [facility] Work Phone: [employer] note* Diagnosis Onset Date Resolution Status Personal history of colonic polyps acute Carotid artery stenosis acut e Essential hypertension acute Atherosclerosis of coronary artery of [place] heart without angina pectoris chronic Hyperlipidemia chronic Peripheral vascular occlusive disease [facility] Work Phone: Evaluation note* Diagnosis Essential hypertension Unspecified essential hypertension documented in this encounter [facility] note* Diagnosis Peripheral vascular occlusive disease (HCC)- Primary Peripheral vascular disease, unspecified documented in this encounter [facility] note* Diagnosis Peripheral vascular occlusive disease (HCC) Peripheral vascular disease, unspecified documented in this encounter [facility] note* Diagnosis Essential hypertension Unspecified essential hypertension documented in this encounter [facility] note* Diagnosis Diabetes mellitus type 2 with [...] arthropathy, multiple sites Coronary artery disease involving [place] heart, unspecified vessel or lesion type, unspecified whether angina present Fatigue, unspecified type documented in this encounter [facility] note* Diagnosis Encounter for screening mammogram for malignant neoplasm of breast Other screening mammogram documented in this encounter [facility] note* Diagnosis Abnormal mammogram- Primary Abnormal mammogram, unspecified documented in this encounter [facility] note* Diagnosis Acute pain of right shoulder- Primary documented in this encounter [facility] noteNo assessment information availableWOhio [facility] Work Phone: Evaluation note* Diagnosis Onset Date Resolution Status Carotid artery stenosis acut e [facility] Work Phone: evaluation note* Diagnosis Injury of sternum, initial encounter- Primary Wrist injury, right, initial encounter [facility] Diagnosis Onset Date Resolution Status Carotid artery stenosis 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 Atherosclerosis of coronary artery of [place] heart without angina pectoris chronic Carotid artery stenosis 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 Essential hypertension chron ic Hyperlipidemia chronic Peripheral vascular occlusive disease [facility] Work Phone: Evaluation note* Diagnosis Low TSH level- Primary Nonspecific abnormal results of thyroid function study Abnormal thyroid biopsy Abnormal thyroid blood test Nonspecific abnormal results of thyroid function study Borderline abnormal thyroid function test Nonspecific abnormal results of thyroid function study [facility] Diagnosis Acute cystitis with hematuria- Primary Acute cystitis [facility] Diagnosis Onset Date Resolution Status Atherosclerosis of coronary artery of [place] heart without angina pectoris chronic Carotid artery stenosis 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 Essential hypertension chron ic Hyperlipidemia chronic Peripheral vascular occlusive disease [facility] Work Phone: Evaluation note* Diagnosis Diabetes mellitus [...] stage 3a (HCC) [facility] Diabetes mellitus type 2 with peripheral artery disease Type II or unspecified type diabetes mellitus with peripheral circulatory disorders, not stated as uncontrolled [facility] Diagnosis Encounter for screening mammogram for malignant neoplasm of breast- Primary Other screening mammogram [facility] Diagnosis 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) Type II or unspecified type diabetes mellitus with peripheral circulatory disorders, not stated as uncontrolled [facility] Diagnosis Peripheral vascular occlusive disease (HCC) Peripheral vascular disease, unspecified [facility] Diagnosis Abnormal mammogram- Primary Abnormal mammogram, unspecified documented in this encounter [facility] note* Diagnosis Dysuria- Primary Acute cystitis with [...] arthropathy, multiple sites documented in this encounter [facility] note* Diagnosis Onset Date Resolution Status Atherosclerosis of coronary artery of [place] heart without angina pectoris chronic Carotid artery stenosis 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 Essential hypertension chron ic Hyperlipidemia chronic Peripheral vascular occlusive disease chronic Carotid artery stenosis 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 Peripheral vascular occlusive disease [facility] Work Phone: Evaluation note* Diagnosis Onset Date Resolution Status Carotid artery stenosis 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 Peripheral vascular occlusive disease [facility] Work Phone: Evaluation note* Diagnosis Encounter for screening mammogram for malignant neoplasm of breast Other screening mammogram documented in this encounter [facility] note* Diagnosis Abnormal mammogram Abnormal mammogram, unspecified documented in this encounter [facility] note* Diagnosis Abnormal mammogram Abnormal mammogram, unspecified documented in this encounter [facility] note* Diagnosis Abnormal thyroid function test Nonspecific abnormal results of thyroid function study documented in this encounter [facility] note* Diagnosis Peripheral vascular occlusive disease (HCC) Peripheral vascular disease, unspecified [facility] Diagnosis Multiple thyroid nodules Nontoxic multinodular goiter [facility] Diagnosis Chronic midline low back pain without sciatica documented in this encounter [facility] note* Diagnosis Chronic bilateral low back pain with bilateral sciatica- Primary [facility]* Diagnosis Peripheral vascular occlusive disease (HCC) Peripheral vascular disease, unspecified [facility]* Diagnosis Chronic bilateral low back pain with bilateral sciatica- Primary documented in this encounter [facility] note* Diagnosis Onset Date Resolution Status Systolic murmur acute Atherosclerosis of coronary artery of [place] heart without angina pectoris chronic Essential hypertension chron ic Hyperlipidemia chronic [facility] Work Phone: Evaluation note* Diagnosis Chronic midline low back pain without sciatica- Primary [facility]* Diagnosis Multiple thyroid nodules- Primary Nontoxic multinodular goiter [facility]* Diagnosis Chronic bilateral low back pain with bilateral sciatica- Primary [facility]* Diagnosis Chronic bilateral low back pain with bilateral sciatica- Primary [facility]* Diagnosis Multiple thyroid nodules- [...] Fatigue, unspecified type documented in this encounter [facility] note* Diagnosis Encounter for screening mammogram for malignant neoplasm of breast Other screening mammogram [facility] Diagnosis Chronic midline low [...] Nontoxic multinodular goiter documented in this encounter [facility] note* Diagnosis Chronic midline low back pain without sciatica [facility]* Diagnosis Injury of sternum, initial encounter Wrist injury, right, initial encounter documented in this encounter [facility] note* Diagnosis Acute pain of right shoulder [facility] Diagnosis Diabetes mellitus type [...] arthropathy, multiple sites [facility]* Diagnosis Essential hypertension Unspecified essential hypertension [facility] Diagnosis Hospital discharge follow-up- Primary Other follow-up examination Diabetic foot ulcer associated with type 2 diabetes mellitus, unspecified laterality, unspecified part of foot, unspecified ulcer stage (HCC) Abnormality of gait Falling episodes Lack of coordination [facility] Diagnosis 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)- Primary Type II or unspecified type diabetes mellitus with peripheral circulatory disorders, not stated as uncontrolled Hyperglycemia Other abnormal glucose [facility] Author Maddie Merchant [facility] Note Date/Time May 18, 2025 2:32 am [facility] Medical Records Department [address] [place] [address] H&P Exam - Hospitalist 05/18/25 0201 MR#: [id number] Acct: [id number] Name: JONNYGELY Melinda Rep #:[id number] : 1950 75 From: Maddie Merchant MD PCP: Dr. Rishi Vasquez, DO Status:AD M IN Location: MS3 [id number] HPI - General General Date of Admission: 05/18/25 Date of Service: 05/18/25 Chief Complaint: Debility, weakness. HPI Narrative The patient is a 75 y/o F w/ PMHx: CAD, PAD s/p peripheral angioplasty, Diabetesmellitus type II with Chronic neuropathy, Anxiety and Depression, HTN, HLD, Former tobacco use, Chronic normocytic anemia/Fe deficiency anemia, CKD stage III unclear subtype per GFR trending, chronic bilateral lower extremity diabeticulcerations/wounds following with Dr. Irene podiatric medicine with recent new ulcer to the left medial ankle unfortunately where her surgical offloading shoe has been rubbing who presents to the [facility] ED on 05/18/2025 with generalized weakness, fatigue, difficulty ambulating secondary weakness with fall the day prior when she was coming to the house at 11:15 AM unfortunately found later in the evening past 9 PM by her family eventually helped into a chair where she remained although she was able to get out of the chair in the morning and use the toilet but unfortunately was unable to even getup after this prompting EMS call with noted onset of fever reporting that she had recently started doxycycline oral antibiotic for erythema to the left foot wounds per her podiatry office prompting evaluation in the ED. Workup in the ED included T97.9, heart rate 71, BP 119/52, respiratory rate 18, 96% room air withmost recent vitals T1 100.4 oral, heart 100, BP 118/51, respiratory rate 23, 100% on room air, CBC with WC 7.1, hemoglobin 8.9, MCV 90.2, platelet 162 with lymphopenia, CMP with sodium 131, chloride 97, carbon oxide 17.5, anion gap 16, BUN/creatinine 78/1.96, GFR 27, glucose 253, lactic acid less than 1, AST/ALT 83/36, total creatinine kinase 1177, urinalysis with specific remedy 1.020, protein 100, ketones 5, occult blood 250, negative nitrite, leukocyte Estrace 500 with greater than 100 urine WBCs with 3+ urine bacteria, urine culture pending per ED, chest x-ray with no acute cardiopulmonary findings, plain film of the left foot with possible osteoarthritis, fourth metatarsal head, soft tissue swelling without obvious soft tissue gas with possibly cellulitis with postoperative changes. 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 Other specified peripheral vascular diseases Chronic painful diabetic polyneuropathy MRSA (methicillin resistant staph aureus) culture positive Depression Diabetes Back pain Vertigo History of pain when walking Hypertension Arthritis Wears dentures Post-menopausal Low iron High cholesterol Easy bruising Neuropathy Dietary restriction Former smoker Cardiology follow-up encounter History of torn meniscus of left knee Carotid artery stenosis Essential hypertension Skin lesion Hammer toe of left foot Osteomyelitis Chronic kidney disease, stage 3 Atherosclerosis of coronary artery of [place] heart without angina pectoris Hyperlipidemia Peripheral vascular occlusive disease Hammer toe of second toe of left foot Hallux valgus (acquired), right foot Healed ulcer of left foot on examination Chronic ulcer of left foot with fat layer exposed Delayed wound healing Malnutrition Osteomyelitis of foot 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 Methicillin resistant Staphylococcus aureus infection Chronic osteomyelitis of left foot Non-healing ulcer of right foot DM2 (diabetes mellitus, type 2) Home Medications ?Medication ?Instructions ?Recorded ?Last Taken ?Type aspirin 81 mg tablet,delayed 81 mg PO QHS blood clots 01/13/14 04/14/25 History release multivitamin with folic acid 400 1 tab PO DAILY Supple ment 01/13/14 11/14/16 History mcg tablet omega-3 fatty acids-fish oil 340 1 ea PO DAILY supplem ent 06/29/16 08/27/16 History mg-1,000 mg capsule ferrous sulfate 325 mg (65 mg 325 mg PO DAILY SUPPLEME NT 08/15/18 03/08/25 History iron) tablet ascorbic acid (vitamin C) 500 mg 1,000 mg PO LUNCH Sup plement 11/25/20 03/11/25 11:50 History tablet calcium carbonate (Calcium 600) 600 mg PO DAILY supple ment 12/29/21 Unknown History clopidogrel 75 mg tablet 75 mg PO DAILY Blood clots # 90 tabs 10/23/24 04/15/25 Rx Lactobacillus acidophilus 600 mg PO QDAY gi 03/07/25 0 03/11/25 09:00 History (Acidophilus capsule) pregabalin 100 mg capsule 100 mg PO TID nerve pain 03/11/25 11:50 History simvastatin 20 mg tablet 20 mg PO QHS cholesterol #30 tabs 03/23/25 Unknown Rx nystatin 100,000 unit/gram topical 1 applic topical BI D PRN rash 05/07/25 Unknown History powder (Nyamyc) acetaminophen 650 mg 650 mg PO Q12H PRN pain 04/20 Unknown History tablet,extended release amlodipine 5 mg tablet 5 mg PO DAILY HTN #90 tabs 0 05/12/25 Unknown Rx metoprolol succinate 25 mg 12.5 mg (1/2 x 25 mg) PO DA FABIAN 05/12/25 Unknown Rx tablet,extended release 24 hr HEART RATE #45 tabs glimepiride 2 mg tablet 2 mg PO BID 05/18/25 Unknown History Allergy/AdvReac Type Severity Reaction Status Date / Time Sulfa (Sulfonamide Allergy Unknown Verified 05/17/25 21:44 Antibiotics) Family History Father CAD (coronary artery disease) Heart disease Hypertension CVA (cerebral vascular accident) Mother COPD (chronic obstructive pulmonary disease) Hypertension Heart disease Heart failure Surgical History History of cardiac catheterization History of colonoscopy History of foot surgery History of repair of left rotator cuff History of total left knee replacement (~2014) History of angioplasty of peripheral vessel (~2012) amputation left toe History of left heart catheterization (~01/20/14) Social History household members: none Smoking Status: Former smoker how long ago did patient quit smokin years ago alcohol intake: never substance use type: does not use caffeine: No ROS ROS Narrative Admission Review of Systems: CONSTITUTIONAL: No weight loss, + fever, chills, weakness or fatigue. HEENT: Eyes: No visual loss, blurred vision, double vision or yellow sclerae. Ears, Nose, Throat: No hearing loss, sneezing, congestion, runny nose or sore throat. SKIN: No rash or itching, lesions except significant + bilateral lower extremitydiabetic wounds, left lower extremity primarily worse with notable lateral ankleand posterior heel wounds, heel wound with significant necrotic wound/discharge and foul odor. CARDIOVASCULAR: No chest pain, chest pressure or chest discomfort, palpitations,edema, orthopnea, syncopal events. RESPIRATORY: No shortness of breath, cough or sputum, wheezing, hemoptysis. GASTROINTESTINAL: + Decreased appetite. No nausea, vomiting or diarrhea, abdominal pain, melena, BRBPR. GENITOURINARY: No dysuria, frequency, urgency or retention. NEUROLOGICAL: No headache, dizziness, syncope, paralysis, ataxia, numbness or tingling in the extremities, focal weakness, change in bowel or bladder control,seizure. MUSCULOSKELETAL: + muscle, back pain, joint pain or stiffness. HEMATOLOGIC: + Chronic anemia, easy bleeding/bruising. LYMPHATICS: No enlarged nodes. No history of splenectomy. PSYCHIATRIC: + History of anxiety and depression. ENDOCRINOLOGIC: No reports of sweating, cold or heat intolerance. No polyuria orpolydipsia. ALLERGIES: No history of asthma, hives, eczema or rhinitis. Vital Signs Vital Signs Vital Signs: 05/17/25 21:40 05/17/25 22:02 05/17/25 22:05 Temperature 97.9 F 100.4 F H Temperature Source Temporal Oral Pulse Rate 71 Respiratory Rate 18 Respiratory Effort Normal Respiratory Depth Normal Respiratory Pattern Normal Blood Pressure 118/52 L Blood Pressure Mean 74 Pulse Ox 96 Oxygen Delivery Method Room Air Room Air 05/18/25 00:00 05/18/25 01:56 Temperature 103.1 F H Temperature Source Oral Pulse Rate 100 85 Respiratory Rate 23 H 15 Respiratory Effort Respiratory Depth Respiratory Pattern Blood Pressure 118/51 L 124/50 H Blood Pressure Mean 73 74 Pulse Ox 100 93 Oxygen Delivery Method Room Air Room Air Weight Weight: 160 lb 11.472 oz Body Mass Index (BMI) 25.9 Physical Exam Narrative Physical Examination: General: Awake, alert, oriented x 3 and cooperative, laying in the bed, fatiguedbut denies any pain or acute complaint at this time. Skin: Normal color, normal turgor, no icterus, no cyanosis except for occasionalstage ecchymoses, abrasion, significant bilateral lower extremity diabetic foot wounds primarily more acutely the left lower extremity with lateral ankle diabetic ulceration with no significant periwound erythema or drainage but he will significant necrotic appearing ulceration with discharge and foul odor and periwound erythema. HEENT: AT/NC, EOMI, PERRLA, dry MM, no carotid bruits or JVD noted. Lungs: Mildly diminished, greater bases, proper effort, no rales, ronchi or wheezing. Heart: Mildly tachycardic with regular rhythm; no gallop, rub audible. Abdomen: Soft, NTTP, ND, hyperactive BS, no appreciated HSM. Extremities: No cyanosis, no clubbing, see skin, left lower extremity with mid calf to pedal not markedly pitting but edematous in addition to diabetic wounds as noted. Patient is tremulous and notes this is chronic. Neurological: Patient awake, alert, oriented as noted, cognitive function intact; pupils equally reactive to light and accommodation, cranial nerves grossly normal, moving all 4 extremities, tremulous which is chronic, no focal deficits, strength severely globally increased Psychiatric: Affect appears fatigued, no acute evidence of depressive or anxietyfeelings. Results Lab / Micro Data 05/17/25 21:53 05/17/25 21:53 Labs: Laboratory Results - last 24 hr 05/17/25 21:53: WBC 7.1, RBC 3.07 L, Hgb 8.9 L, Hct 27.7 L, MCV 90.2, MCH 29.0, MCHC 32.1, RDW Std Deviation 50.8 H, RDW Coeff of Jorgito 15.3 H, Plt Count 162, MPV11.3, Immature Gran % (Auto) 0.600, Neut % (Auto) 80.8 H, Lymph % (Auto) 7.4 L, Scurry % (Auto) 10.6 H, Eos % (Auto) 0.0, Baso % (Auto) 0.6, Absolute Neuts (auto)5.7, Absolute Lymphs (auto) 0.52 L, Nucleated RBC % 0, Sodium 131 L, Potassium 4.7, Chloride 97 L, Carbon Dioxide 17.5 L, Anion Gap 16 H, BUN 78 H, Creatinine 1.96 H, Estim Creat Clear Calc 26.13 L, Est GFR (MDRD) Non-Af 27 L, BUN/Creatinine Ratio 39.9 H, Glucose 253 H, Calcium 9.2, Total Bilirubin 0.45, AST 83 H, ALT 36 H, Alkaline Phosphatase 54, Total Creatine Kinase 1177 H, Total Protein 6.3, Albumin 2.9 L, Globulin 3.4, Albumin/Globulin Ratio 0.8 L 05/17/25 22:33: Lactic Acid < 1.0 05/18/25 00:50: Urine Color Yellow, Urine Clarity Cloudy, Urine pH 5.0, Ur Specific [place] 1.020, Urine Protein 100 H, Urine Glucose (UA) Normal, Urine Ketones 5 H, Urine Occult Blood 250 H, Urine Nitrite Negative, Urine Bilirubin Negative, Urine Urobilinogen Normal, Ur Leukocyte Esterase 500 H, Urine RBC 0 SEEN, Urine WBC >100 SEEN, Ur Squamous Epith Cells 0-5 SEEN, Urine Bacteria 3+, Urine Mucus 0 SEEN Imaging Radiology Impression Chest X-Ray 05/17/25 22:35 IMPRESSION: No acute chest findings. Reading Location: [facility] Foot X-Ray 05/17/25 22:35 IMPRESSION: Possible osteoarthritis, 4th metatarsal head. Soft tissue swelling, without obvious soft tissue gas. Possible cellulitis. [facility] Assessment & Plan Assessment/Plan (1) Acute UTI: PLAN: Plan The patient is a 75 y/o F w/ PMHx: CAD, PAD s/p peripheral angioplasty, Diabetesmellitus type II with Chronic neuropathy, Anxiety and Depression, HTN, HLD, Former tobacco use, Chronic normocytic anemia/Fe deficiency anemia, CKD stage III unclear subtype per GFR trending, chronic bilateral lower extremity diabeticulcerations/wounds following with Dr. Irene podiatric medicine with recent new ulcer to the left medial ankle unfortunately where her surgical offloading shoe has been rubbing who presents to the [facility] ED on 05/18/2025 with generalized weakness, fatigue, difficulty ambulating secondary weakness with fall the day prior when she was coming to the house at 11:15 AM unfortunately found later in the evening past 9 PM by her family eventually helped into a chair where she remained although she was able to get out of the chair in the morning and use the toilet but unfortunately was unable to even getup after this prompting EMS call with noted onset of fever reporting that she had recently started doxycycline oral antibiotic for erythema to the left foot wounds per her podiatry office prompting evaluation in the ED. #1. LLE Infected Diabetic Ulceration with questionable 4th metatarsal head/LLE Cellulitis w/ Chronic BL LE Diabetic wounds/Ulcerations: Will admit to [facility] given stable vital sign, will maintain on IV vanc and zosyn, will obtain Wound Cx, will obtain Wound MRSA PCR, plan repeat CBC in AM, continue affected extremity elevation above heart when seated and in bed, monitor erythema outline with VS checks, will consult Wound RN, will consult Dr. Irene Podiatry, will request consultation also with Dr. Clement vascular surgery. #2. Acute Complicated Urinary Tract Infection: UA upon ED evaluation remarkable, pending UCx, continue aggressive IVFs, monitor I/Os, continue IV Zosyn/bank given #1 concurrently w/ transition as able pending sensitivities andspeciation. Bld cx x 2 obtained in the ED. #3. Acute kidney injury on CKD stage III unclear subtype per previous GFR trending: Secondary to acute presentation as noted. Admission BUN/Cr 78/1.98, GFR 27, prior baseline creatinine noted to be most recently 0.9-1.0 but has vacillated in the past appears to have ranged 1.1-1.4 also,. Will hydrate, hold nephrotoxic medications and repeat chemistry in AM. If not improving will investigate further. #4. Acute rhabdomyolysis: Total creatinine kinase 1177, in addition to as notedacute kidney injury and mild transaminitis, will continue aggressive hydration and repeat CMP in AM, monitor urine output and adjust fluids as needed. #5. Mild acute transaminitis: Admission hepatic profile with T. bili 0.45, AST/ALT 83/36, will continue treatment as noted above, repeat CMP in AM. #6. Acute hyponatremia, hypochloremia, suspect hypovolemic etiology especially given #1: Admission sodium 131, chloride 97, will continue to hydrate and repeatCMP in AM. #7. PAD, CAD: Status post only peripheral angioplasty intervention per report, following with Dr. Clement with recent office visit noted 05/13/2025 with reportedly recent CTA demonstrating significant calcific femoral disease bilaterally with angiogram evaluation of the tibial vessels with consideration for bypass bilaterally with vein mapping unfortunately demonstrating insufficient vein use for bypass grafting with recommendation in conjunction with podiatry/vascular surgery noted to be bilateral femoral endarterectomies with bilateral femoral to tibial bypass with cadaver graft and bilateral sartorius flaps with planned staged procedures with noted plan for potential scheduled procedure 05/26/2025. Will continue aspirin, Plavix, statin, hypertensive regimen with adjustments as needed pending blood pressure trending. #8. Diabetes mellitus type II complicated by #1 with chronic diabetic wounds and chronic diabetic neuropathy: Hold oral home regimen, hemoglobin A1c requested, will maintain n.p.o. status pending vascular surgery and podiatry evaluation in case of decision for operative intervention undertaken, accu checks w/ ISS, continue home pregabalin regimen, nutrition consulted for education and teaching. #9. Hypertension: Continue home regimen including metoprolol, amlodipine with hold parameters as needed, PRN hydralazine. #10. Hyperlipidemia: Give #4 will temporarily hold statin therapy. #11. Chronic normocytic anemia/iron deficiency anemia: Admission hemoglobin 8.9, MCV 90.2, baseline hemoglobin has vacillated but appears primarily 9 range although more recently 05/08/2025 hemoglobin was 10.4, continue to closely trend CBC, if dropping further will investigate. Will continue iron supplementation. #12. Anxiety and depression: Noted history in the chart, not on regimen per current list, continue to monitor and follow-up outpatient as previously arranged. #13. Former tobacco use: Encourage continued tobacco cessation. #14. DVT prophylaxis: SCDs, hold chemoprophylaxis in case of OR, add if deferred. #15. CODE status: Patient SILVESTREOA she thinks is her sister but she is uncertain and she believes living will may be in place. Discussed CODE status at length including difference between FULL code, DNR-CCA and DNR-CC status. Following discussions about the differences in these status, requested Full Code status. Advanced Care Planning Face to Face Time: 16 minutes. Charges/Coding Visit Charges Inpatient E&M: 15569 Init Hosp L3 Procedures Hospitalists Procedures: 73181 Advncd Care Plan 30 Min 05/18/25 0232 <Electronically signed by Maddie Merchant MD> Cosigner Signature (if applicable): CC: Dr. Maddie Merchant MD; Dr. Rishi Vasquez DO~ Signed [facility] Work Phone: Hospital Discharge instructionsAdditional Instructions Bilateral wound care dressings: 1. Remove all outer dressing and soft dressing to the level of the Adaptic. 2. Gently peel off the Adaptic without disturbing the underlying Integra graft. 3. Do not remove the Integra graft as it is secured with jacob. There could be some mild odor noticed but this is completely normal with this type of graft. Gently clean off the bilateral foot and ankle with sterile saline and do not disturb the graft please. 4. Cover the graft on the bilateral lower extremity with Adaptic, cover with 4 x 4's, secured in place with light Kerlix wrap, under casting to the bilateral lower extremity and secured in place with two 4 inch Buzz bandages from sulcus of toes to mid calf bilateral, With light compression. We need to make sure that we are controlling her swelling to the left and right lower extremities. Patient is planning to have vascular surgery with revascularization on 05/26/2025. Weightbearing for both legs as noted below -RLE with surgical shoe full weight bearing/weightbearing as tolerated with surgical shoe on -Weightbearing on left lower extremity toe-touch touch weightbearing [facility] Work Phone: Reason for referral (narrative)* Diagnostic Procedure Only (Routine) - Closed Specialty Diagnoses / Procedures Referred By Viraj banegas Referred To Contact [facility] Diagnoses Encounter for screening mammogram for malignant neoplasm of breast Procedures ALEJANDRO SCREENING SCREENING MAMMOGRAPHY BI 2-VIEW BREAST INC CAD Rishi Vasquez DO [address] [place] [address] [facility] [address] [place] [id number] Referral ID Status Reason Start Date Expiration Date V isits Requested Visits Authorized [id number] Closed Auto-Generate d Referral 12/05/2021 01/04/2023 1 1 [facility] for referral (narrative)* Diagnostic Procedure Only (Routine) - Authorized Specialty Diagnoses / Procedures Referred By Viraj banegas Referred To Contact [facility] Diagnoses Abnormal mammogram Procedures US BREAST LTD RT US BREAST UNI REAL TIME WITH IMAGE LIMITED Yani Watts APRN.RAIL CAR REPAIRER [address] [place] [address] [facility] [address] [place] [phone] Referral ID Status Reason Start Date Expiration Date Visits Requested Visits Authorized [id number] Authorized Auto-Generat ed Referral 06/05/2022 07/05/2023 1 1 * Diagnostic Procedure Only (Routine) - Authorized Specialty Diagnoses / Procedures Referred By Viraj banegas Referred To Contact [facility] Diagnoses Abnormal mammogram Procedures ALEJANDRO DIAGNOSTIC RT DIAGNOSTIC MAMMOGRAPHY COMPUTER-AIDED DETCJ UNI Yani Watts APRN.CNP [address] [place] [address] [facility] [address] [place] [address] Referral ID Status Reason Start Date Expiration Date Visits Requested Visits Authorized [id number] Authorized Auto-Generat ed Referral 06/05/2022 07/05/2023 1 1 [facility] for referral (narrative)* Diagnostic Procedure Only (Urgent) - Closed Specialty Diagnoses / Procedures Referred By Contac t Referred To Contact XR IMAGING Diagnoses Acute pain of right shoulder Procedures XR SHOULDER GENERAL 3V OR MORE AP/TRUE AP/OTHER RIGHT RADEX SHOULDER COMPLETE MINIMUM 2 VIEWS Kena Sims APRN.CNP [address] [place] [address] X[facility] Imaging Referral ID Status Reason Start Date Expiration Date V isits Requested Visits Authorized [id number] Closed Auto-Generate d Referral 06/17/2022 07/17/2023 1 1 [facility] for referral (narrative)* Diagnostic Procedure Only (Urgent) - Closed Specialty Diagnoses / Procedures Referred By Contac t Referred To Contact XR IMAGING Diagnoses Wrist injury, right, initial encounter Procedures XR WRIST INJURY 4V PA/LAT/OBL/SCAPH RIGHT RADEX WRIST COMPLETE MINIMUM 3 VIEWS Camille Mitchell PA-C [address] [place] [address] Xr Imaging Referral ID Status Reason Start Date Expiration Date V isits Requested Visits Authorized [id number] Closed Auto-Generate d Referral 08/15/2022 09/14/2023 1 1 * Diagnostic Procedure Only (Urgent) - Closed Specialty Diagnoses / Procedures Referred By Contac t Referred To Contact XR IMAGING Diagnoses Injury of sternum, initial encounter Procedures XR STERNUM 2V BARAJAS/LAT RADEX STERNUM MINIMUM 2 VIEWS Camille Mitchell PA-C [address] [place] [address] Xr Imaging Referral ID Status Reason Start Date Expiration Date V isits Requested Visits Authorized [id number] Closed Auto-Generate d Referral 08/15/2022 09/14/2023 1 1 [facility] for referral (narrative)* Outpatient Procedure (Routine) - Authorized Specialty Diagnoses / Procedures Referred By Contac t Referred To Contact [facility] Diagnoses Carotid atherosclerosis, bilateral Procedures US CAROTID ARTERIES [facility]ADIE [facility] DUPLEX SCAN EXTRACRANIAL ART COMPL BI STUDY Rishi Vasquez DO [address] [place] [address] [facility] [place] [address] [place] [id number] Referral ID Status Reason Start Date Expiration Date Visits Requested Visits Authorized [id number] Authorized Auto-Generat ed Referral 12/05/2022 12/05/2023 1 1 [facility] for referral (narrative)* Diagnostic Procedure Only (Routine) - Pending Review Specialty Diagnoses / Procedures [facility] Referred To Contact [facility] Diagnoses Encounter for screening mammogram for malignant neoplasm of breast Procedures ALEJANDRO SCREENING SCREENING MAMMOGRAPHY BI 2-VIEW BREAST INC Clary Huerta APRN.CNP [address] [place] [address] [facility] [address] [place] [address] Referral ID Status Reason Start Date Expiration Date Visits Requested Visits Authorized [id number] Pending Review Auto-Generat ed Referral 02/07/2023 03/06/2024 1 1 [facility] for referral (narrative)* Diagnostic Procedure Only (Routine) - Authorized Specialty Diagnoses / Procedures [facility] Referred To Contact [facility] Diagnoses Abnormal mammogram Procedures US BREAST LTD RIGHT US BREAST UNI REAL TIME WITH IMAGE LIMITED Danyelle Tripp PA-C [address] [place] [address] [facility] [address] [place] [address] Referral ID Status Reason Start Date Expiration Date Visits Requested Visits Authorized [id number] Authorized Auto-Generat ed Referral 05/29/2023 06/27/2024 1 1 * Diagnostic Procedure Only (Routine) - Authorized Specialty Diagnoses / Procedures Referred By Contac t Referred To Contact [facility] Diagnoses Abnormal mammogram Procedures ALEJANDRO DIAGNOSTIC RIGHT DIAGNOSTIC MAMMOGRAPHY COMPUTER-AIDED DETCJ UNI Danyelle Tripp PA-C [address] [place] [address] [facility] [address] [place] [address] Referral ID Status Reason Start Date Expiration Date Visits Requested Visits Authorized [id number] Authorized Auto-Generat ed Referral 05/29/2023 06/27/2024 1 1 [facility] for referral (narrative)* Diagnostic Procedure Only (Routine) - Closed Specialty Diagnoses / Procedures Referred By Contac t Referred To Contact [facility] Diagnoses Encounter for screening mammogram for malignant neoplasm of breast Procedures ALEJANDRO SCREENING SCREENING MAMMOGRAPHY BI 2-VIEW BREAST INC Clary Huerta APRN.CNP [address] [place] [address] [facility] [address] [place] [address] Referral ID Status Reason Start Date Expiration Date V isits Requested Visits Authorized [id number] Closed Auto-Generate d Referral 02/07/2023 03/06/2024 1 1 [facility] for referral (narrative)* Diagnostic Procedure Only (Routine) - Closed Specialty Diagnoses / Procedures Referred By Contac t Referred To Contact [facility] Diagnoses Abnormal mammogram Procedures US BREAST LTD RIGHT US BREAST UNI REAL TIME WITH IMAGE LIMITED Danyelle Tripp PA-C [address] [place] [address] [facility] [address] [place] [address] Referral ID Status Reason Start Date Expiration Date V isits Requested Visits Authorized [id number] Closed Auto-Generate d Referral 05/29/2023 06/27/2024 1 1 [facility] for referral (narrative)* Diagnostic Procedure Only (Routine) - Closed Specialty Diagnoses / Procedures Referred By Contac t Referred To Contact [facility] Diagnoses Abnormal thyroid function test Procedures NM THY UPTAKE AND SCAN THYROID UPTAKE W/BLOOD FLOW SNGLE/MULT Rishi Hooks, DO [address] [place] [address] [facility] [address] [place] [address] Referral ID Status Reason Start Date Expiration Date V isits Requested Visits Authorized [id number] Closed Auto-Generate d Referral 12/15/2022 01/14/2024 1 1 [facility] for referral (narrative)* Diagnostic Procedure Only (Routine) - Closed Specialty Diagnoses / Procedures Referred By Contac t Referred To Contact [facility] IMAGING Diagnoses Abnormal thyroid function test Procedures US THYROID/PARATHYROID US SOFT TISSUE HEAD & NECK REAL TIME IMGE Rishi Menon DO [address] [place] [address] [place] [address] Referral ID Status Reason Start Date Expiration Date V isits Requested Visits Authorized [id number] Closed Auto-Generate d Referral 12/15/2022 01/14/2024 1 1 [facility] for referral (narrative)* Diagnostic Procedure Only (Routine) - Closed Specialty Diagnoses / Procedures Referred By Contac t Referred To Contact XR IMAGING Diagnoses Chronic midline low back pain without sciatica Procedures XR LUMBAR GENERAL 3V AP/LAT/L5-S1 RADEX SPINE LUMBOSACRAL 2/3 VIEWS Rishi Vasquez DO [address] [place] [address] [place] [address] Referral ID Status Reason Start Date Expiration Date V isits Requested Visits Authorized [id number] Closed Auto-Generate d Referral 12/05/2023 01/03/2025 1 1 [facility] for referral (narrative)* Diagnostic Procedure Only (Urgent) - Closed Specialty Diagnoses / Procedures Referred By Contac t Referred To Contact XR IMAGING Diagnoses Wrist injury, right, initial encounter Procedures XR WRIST INJURY 4V PA/LAT/OBL/SCAPH RIGHT RADEX WRIST COMPLETE MINIMUM 3 VIEWS Camille Mitchell PA-C [address] [place] [address] [place] [address] Referral ID Status Reason Start Date Expiration Date V isits Requested Visits Authorized [id number] Closed Auto-Generate d Referral 08/15/2022 09/14/2023 1 1 * Diagnostic Procedure Only (Urgent) - Closed Specialty Diagnoses / Procedures Referred By Contac t Referred To Contact XR IMAGING Diagnoses Injury of sternum, initial encounter Procedures XR STERNUM 2V BARAJAS/LAT RADEX STERNUM MINIMUM 2 VIEWS Camille Mitchell PA-C [address] [place] [address] [place] [address] Referral ID Status Reason Start Date Expiration Date V isits Requested Visits Authorized [id number] Closed Auto-Generate d Referral 08/15/2022 09/14/2023 1 1 [facility] for referral (narrative)* Diagnostic Procedure Only (Urgent) - Closed Specialty Diagnoses / Procedures Referred By Contac t Referred To Contact XR IMAGING Diagnoses Acute pain of right shoulder Procedures XR SHOULDER GENERAL 3V OR MORE AP/TRUE AP/OTHER RIGHT RADEX SHOULDER COMPLETE MINIMUM 2 VIEWS Kena Schrader APRN.RAIL CAR REPAIRER [address] [place] [address] [place] [address] Referral ID Status Reason Start Date Expiration Date V isits Requested Visits Authorized [id number] Closed Auto-Generate d Referral 06/17/2022 07/17/2023 1 1 [facility] for referral (narrative)* Diagnostic Procedure Only (Routine) - Authorized Specialty Diagnoses / Procedures Referred By Contac t Referred To Contact BR IMAGING Diagnoses Encounter for screening mammogram for malignant neoplasm of breast Procedures ALEJANDRO SCREENING W BEN SCREENING DIGITAL BREAST TOMOSYNTHESIS BI SCREENING MAMMOGRAPHY BI 2-VIEW BREAST INC CAD Rishi Vasquez, DO [address] [place] [address] Br Imaging [address] [place] [address] Referral ID Status Reason Start Date Expiration Date Visits Requested Visits Authorized [id number] Authorized Auto-Generat ed Referral 12/05/2024 01/04/2026 1 1 [facility] for referral (narrative)No reason for referral information availableW[facility] Phone: Reason for visit Narrative* Diagnostic Procedure Only (Routine) - Closed Specialty Diagnoses / Procedures Referred By Contac t Referred To Contact BR IMAGING Diagnoses Encounter for screening mammogram for malignant neoplasm of breast Procedures ALEJANDRO SCREENING SCREENING MAMMOGRAPHY BI 2-VIEW BREAST INC CAD Rishi Vasquez, DO [address] [place] [address] [facility] Imaging [address] [email or web address] [address] Referral ID Status Reason Start Date Expiration Date V isits Requested Visits Authorized [id number] Closed Auto-Generate d Referral 12/05/2021 01/04/2023 1 1 [facility] for visit Narrative* Diagnostic Procedure Only (Routine) - Closed Specialty Diagnoses / Procedures Referred By Contac t Referred To Contact BR IMAGING Diagnoses Encounter for screening mammogram for malignant neoplasm of breast Procedures ALEJANDRO SCREENING SCREENING MAMMOGRAPHY BI 2-VIEW BREAST INC CAD Clary Andres APRN.RAIL CAR REPAIRER [address] [place] [address] Br Imaging [address] [place] [address] Referral ID Status Reason Start Date Expiration Date V isits Requested Visits Authorized [id number] Closed Auto-Generate d Referral 02/07/2023 03/06/2024 1 1 [facility] for visit Narrative* Diagnostic Procedure Only (Routine) - Closed Specialty Diagnoses / Procedures Referred By Contac t Referred To Contact BR IMAGING Diagnoses Abnormal mammogram Procedures ALEJANDRO DIAGNOSTIC RIGHT DIAGNOSTIC MAMMOGRAPHY COMPUTER-AIDED DETCJ UNI Danyelle Tripp PA-C [address] [place] [address] Br Imaging [address] [place] [phone] Referral ID Status Reason Start Date Expiration Date V isits Requested Visits Authorized [id number] Closed Auto-Generate d Referral 05/29/2023 06/27/2024 1 1 [facility] for visit Narrative* Diagnostic Procedure Only (Routine) - Closed Specialty Diagnoses / Procedures Referred By Viraj t Referred To Contact MOLECULAR & FUNCTIONAL IMAGING Diagnoses Abnormal thyroid function test Procedures NM THY UPTAKE AND SCAN THYROID UPTAKE W/BLOOD FLOW SNGLE/MULT JAMARI NATALIA Rishi Vasquez, DO [address] [place] [address] Molecular & Functional Imaging [address] [place] [address] Referral ID Status Reason Start Date Expiration Date V isits Requested Visits Authorized [id number] Closed Auto-Generate d Referral 12/15/2022 01/14/2024 1 1 [facility] for visit Narrative* Diagnostic Procedure Only (Routine) - Closed Specialty Diagnoses / Procedures Referred By Viraj t Referred To Contact BR IMAGING Diagnoses Encounter for screening mammogram for malignant neoplasm of breast Procedures ALEJANDRO SCREENING W BEN SCREENING DIGITAL BREAST TOMOSYNTHESIS BI SCREENING MAMMOGRAPHY BI 2-VIEW BREAST INC CAD Rishi Vasquez, DO [address] [place] [address] Br Imaging [address] [place] [address] Referral ID Status Reason Start Date Expiration Date V isits Requested Visits Authorized [id number] Closed Auto-Generate d Referral 12/05/2023 01/03/2025 1 1 [facility] for visit Narrative* Diagnostic Procedure Only (Routine) - Closed Specialty Diagnoses / Procedures Referred By Contac t Referred To Contact XR IMAGING Diagnoses Chronic midline low back pain without sciatica Procedures XR LUMBAR GENERAL 3V AP/LAT/L5-S1 RADEX SPINE LUMBOSACRAL 2/3 VIEWS Rishi Vasquez, DO [address] [place] [address] [place] [address] Referral ID Status Reason Start Date Expiration Date V isits Requested Visits Authorized [id number] Closed Auto-Generate d Referral 12/05/2023 01/03/2025 1 1 [facility] for visit Narrative* Diagnostic Procedure Only (Urgent) - Closed Specialty Diagnoses / Procedures Referred By Contac t Referred To Contact XR IMAGING Diagnoses Wrist injury, right, initial encounter Procedures XR WRIST INJURY 4V PA/LAT/OBL/SCAPH RIGHT RADEX WRIST COMPLETE MINIMUM 3 VIEWS Camille Mitchell, PASergioC [address] [place] [address] [place] [address] Referral ID Status Reason Start Date Expiration Date V isits Requested Visits Authorized [id number] Closed Auto-Generate d Referral 08/15/2022 09/14/2023 1 1 [facility] for visit Narrative* Diagnostic Procedure Only (Urgent) - Closed Specialty Diagnoses / Procedures Referred By Contac t Referred To Contact XR IMAGING Diagnoses Acute pain of right shoulder Procedures XR SHOULDER GENERAL 3V OR MORE AP/TRUE AP/OTHER RIGHT RADEX SHOULDER COMPLETE MINIMUM 2 VIEWS Kena Schrader, 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.RAIL CAR REPAIRER [address] [place] [address] [place] [address] Referral ID Status Reason Start Date Expiration Date V isits Requested Visits Authorized [id number] Closed Auto-Generate d Referral 06/17/2022 07/17/2023 1 1 [facility] Chief Complaint and Reason for Visit Chief Complaint 2020 CARDIAC REHAB P HASE III MAINTENANCE-SELF PAY PHASE III MAINTENANCE SELF-PAY COLONOSCOPY PHASE III MAINTENANCE SELF-PAY 6 M FU / R/S FROM 2-7 MMM PHASE III MAINTENANCE SELF-PAY Reason for Visit Personal history of colonic polyps Carotid artery stenosis Essential hypertension Atherosclerosis of coronary artery of [place] heart without angina pectoris Hyperlipidemia Peripheral vascular occlusive disease Chief Complaint PHASE III MA INTENANCE SELF-PAY COLONOSCOPY PHASE III MAINTENANCE SELF-PAY 6 M FU / R/S FROM 2-7 MMM PHASE III MAINTENANCE SELF-PAY PHASE III MAINTENANCE SELF-PAY Reason for Visit Personal history of colonic polyps Carotid artery stenosis Essential hypertension Atherosclerosis of coronary artery of [place] heart without angina pectoris Hyperlipidemia Peripheral vascular occlusive disease Chief Complaint COLONOSCOPY PHASE III MAINTENANCE SELF-PAY 6 M FU / R/S FROM 2-7 MMM PHASE III MAINTENANCE SELF-PAY PHASE III MAINTENANCE SELF-PAY PHASE III MAINTENANCE SELF-PAY Reason for Visit Personal history of colonic polyps Carotid artery stenosis Essential hypertension Atherosclerosis of coronary artery of [place] heart without angina pectoris Hyperlipidemia Peripheral vascular [...] steno sis Atherosclerosis of coronary artery of [place] heart without angina pectoris Carotid artery stenosis Essential hypertension Hyperlipidemia Peripheral vascular occlusive disease Chief Complaint PHASE III MA INTENANCE SELF-PAY CAROTID STENOSIS BILAT CAROTID U/S 06/22 PHASE III MAINTENANCE SELF-PAY 6 M FU PHASE III MAINTENANCE SELF-PAY PHASE III MAINTENANCE SELF-PAY Reason for Visit Carotid artery steno sis Atherosclerosis of coronary artery of [place] heart without angina pectoris Carotid artery stenosis Essential hypertension Hyperlipidemia Peripheral vascular occlusive disease Chief Complaint CAROTID STENOSIS SADIE AT CAROTID U/S 06/22 PHASE III MAINTENANCE SELF-PAY 6 M FU PHASE III MAINTENANCE SELF-PAY PHASE III MAINTENANCE SELF-PAY PHASE III MAINTENANCE SELF-PAY Reason for Visit Carotid artery steno sis Atherosclerosis of coronary artery of [place] heart without angina pectoris Carotid artery stenosis Essential hypertension Hyperlipidemia Peripheral vascular occlusive disease Chief Complaint PHASE III MA INTENANCE SELF-PAY 6 M FU PHASE III MAINTENANCE SELF-PAY PHASE III MAINTENANCE SELF-PAY PHASE III MAINTENANCE SELF-PAY PVD PHASE III MAINTENANCE SELF-PAY Reason for Visit Atherosclerosis of c oronary artery of [place] heart without angina pectoris Carotid artery stenosis Essential hypertension Hyperlipidemia Peripheral vascular occlusive disease Chief Complaint 6 M FU PHASE III MAINTENANCE SELF-PAY PHASE III MAINTENANCE SELF-PAY PHASE III MAINTENANCE SELF-PAY PVD PHASE III MAINTENANCE SELF-PAY Reason for Visit Atherosclerosis of c oronary artery of [place] heart without angina pectoris Carotid artery stenosis [...] Visit Atherosclerosis of c oronary artery of [place] heart without angina pectoris Carotid artery stenosis Essential hypertension Hyperlipidemia Peripheral vascular occlusive disease Chief Complaint 2022 PH III Maintena nce Self-Pay 2022 PH III Maintenance Self-Pay 1 Y FU/Prev PFM Pt 2022 PH III Maintenance Self-Pay CAROTID STENOSIS 2022 PH III Maintenance Self-Pay Reason for Visit Atherosclerosis of c oronary artery of [place] heart without angina pectoris Carotid artery stenosis Essential hypertension Hyperlipidemia Peripheral vascular occlusive disease Chief Complaint 2022 PH III Maintena nce Self-Pay 1 Y FU/Prev PFM Pt 2022 PH III Maintenance Self-Pay CAROTID STENOSIS 2022 PH III Maintenance Self-Pay CAROTID YEARLY CHECK 2022 PH III Maintenance Self-Pay Reason for Visit Atherosclerosis of c oronary artery of [place] heart without angina pectoris Carotid artery stenosis [...] Visit Atherosclerosis of c oronary artery of [place] heart without angina pectoris Carotid artery stenosis [...] Systolic murmur Atherosclerosis of coronary artery of [place] heart without angina pectoris Essential hypertension Hyperlipidemia Chief Complaint 2023 PH3 MAINTENANCE SELF PAY 2023 PH3 MAINTENANCE SELF PAY 9 M FU/PREV PFM 2023 PH3 MAINTENANCE SELF PAY Cardiac murmur, unspecified 2023 PH3 MAINTENANCE SELF PAY Reason for Visit Systolic murmur Atherosclerosis of coronary artery of [place] heart without angina pectoris Essential hypertension Hyperlipidemia [...] foot March 07 025 4:25pm Atherosclerosis of [place] ar riaz of both lower extremities with [...] left foot March 11 5:26pm Atherosclerosis of [place] riaz of both lower extremities with [...] April 03, 2025 10:32 am Atherosclerosis of [place] [facility] [place] April [...] March 07, 2 025 4:25pm Atherosclerosis of [place] riaz of both lower extremities with [...] foot March 11 025 5:26pm Atherosclerosis of [place] ri[place] of both lower extremities with [...] April 03, 2025 10:32 am Atherosclerosis of [place] [facility] [place] April 15, 2025 10:51am Atherosclerosis of [place] April 15, 2025 4:38pm Chief Complaint Admit [...] April 03, 2025 10:32 am Atherosclerosis of [place] April 15, 2025 10:51am Atherosclerosis of [place] [facility] [place] April [...] April 03, 2025 10:32 am Atherosclerosis of [place] [facility] [place] April 15, 2025 10:51am Atherosclerosis of [place] arteries [place] April [...] 2025 3:14pm 2024 PH3 maintenance-self pay March 19, 025 6:48am Hospital April 03, 2025 10:32 am Atherosclerosis of [place] arteries [place] April 15, 2025 10:51am Atherosclerosis of [place] April [...] foot March 07 025 4:25pm Atherosclerosis of [place] riaz of both lower extremities with [...] foot March 11 025 5:26pm Atherosclerosis of [place] of both lower extremities with [...] 2025 1 0:32am Diabetes mellitus with polyneuropathy Alfonso y 2024 10:32am Preop cardiovascular exam May 07 9:17am Systolic murmur May 07, 2025 9:17 am Type 2 diabetes mellitus with hyperglyce leon May 07, 2025 9:17am Atherosclerosis of coronary artery of [place] heart without angina pectoris May 07, 2025 [...] April 03, 2025 10:32 am Atherosclerosis of [place] [facility] [place] April 15, 2025 10:51am Atherosclerosis of [place] [facility] [place] April [...] March 09, 2025 12:00pm ADULT FTT, FALLS, HSAYY, RHABDO, UTI March 09, 2025 5:29pm ADULT [...] April 03, 2025 10:32 am Atherosclerosis of [place] [facility] [place] April 15, 2025 10:51am Atherosclerosis of [place] [facility] [place] April 15, 2025 4:38pm CAROTID STENOSIS April 20, 2025 1:23p m 2024 PH3 maintenance-self pay April 23, 2025 8:00am NONTOXIC GOITER April 27, 2025 12:38 pm 1 Y FU May 07, 2025 9:17 am PRE OP May 08, 2025 7:11 am PRE OP May 11, 2025 8:28 am Discuss Surgery May 13, 2025 3:35 pm Chief Complaint Admit Date 2024 PH3 [...] April 03, 2025 10:32 am Atherosclerosis of [place] [facility] April 15, 2025 10:51am Atherosclerosis of [place] arteries [facility] [place] April 15, 2025 4:38pm CAROTID STENOSIS April 20, 2025 1:23p m 2024 PH3 maintenance-self pay April 23, 2025 8:00am NONTOXIC GOITER April 27, 2025 12:38 pm 1 Y FU May 07, 2025 9:17 am PRE OP May 08, 2025 7:11 am PRE OP May 11, 2025 8:28 am Discuss Surgery May 13, 2025 3:35 pm DIABETIC INFECTED FOOT WOUND, UTI, RHABD O May 18, 2025 2:09am Reason for Visit Admit Date Acute UTI [...] foot March 07 025 4:25pm Atherosclerosis of [place] of both lower extremities with [...] left foot March 11 5:26pm Atherosclerosis of [place] of both lower extremities with [...] 2025 9:17am Atherosclerosis of coronary artery of [place] heart without angina pectoris May 07, 2025 9:17am Essential hypertension May 07, 2025 9 :17am Hyperlipidemia May 07, 2025 9:17 am Atherosclerosis of both lowe r extremities with bilateral ulceration May 13, 2025 3:35pm PAOD (peripheral arterial occlusive dise ase) May 13, 2025 3:35pm Carotid artery stenosis May 13, 2025 3:35pm Diabetes mellitus with polyneuropathy Ju 2024 3:35pm Acute UTI May 18, 2025 2:09 am Chief Complaint Admit Date 2024 PH3 [...] April 03, 2025 10:32 am Atherosclerosis of [place] [facility] [place] April 15, 2025 10:51am Atherosclerosis of [place] [facility] [place] [place] April 15, 2025 4:38pm CAROTID STENOSIS April 20, 2025 1:23p m 2024 PH3 maintenance-self pay April 23, 2025 8:00am NONTOXIC GOITER April 27, 2025 12:38 pm 1 Y FU May 07, 2025 9:17 am PRE OP May 08, 2025 7:11 am PRE OP May 11, 2025 8:28 am Discuss Surgery May 13, 2025 3:35 pm DIABETIC INFECTED FOOT WOUND, UTI, RHABD O May 18, 2025 2:09am DIABETIC INFECTED FOOT WOUND, UTI, RHABD O May 18, 2025 8:27am DIABETIC INFECTED FOOT WOUND, UTI, RHABD O May 18, 2025 12:57pm Reason for Visit Admit Date Acute UTI March 07, 2025 4:2 5pm SHAYY (acute kidney injury) March 07 4:25pm Anemia March 07, 2025 4:2 5pm Contusion of left hip March 07, 2025 4 :25pm GI bleed March 07, 2025 4:2 5pm Other specified peripheral vascular dise ases March 07, 2025 4:25pm Recurrent falls March 07, 2025 4:2 5pm [...] March 07, 2 025 4:25pm 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 March 07, 2025 4:25pm Chronic painful diabetic polyneuropathy March 07, 2025 4:25pm SHAYY (acute kidney injury) March 11 5:26pm Chronic kidney disease, stage 3b February [id number] 5:26pm Debility March 11, 2025 5:2 6pm Diabetic foot ulcer March 11, 2025 5:2 6pm Dry gangrene March 11, 2025 5:2 6pm Essential (primary) hypertension February 182024 5:26pm Iron deficiency anemia March 11, 2025 5:26pm Multiple falls March 11, 2025 5:2 6pm Other specified peripheral vascular dise ases March 11, 2025 5:26pm PAOD (peripheral arterial occlusive dise ase) March 11, 2025 5:26pm Rhabdomyolysis March 11, 2025 5:2 6pm Type 2 diabetes mellitus with hyperglyce leon March 11, 2025 5:26pm Urinary tract infection March 11, 2025 5:26pm Diabetes mellitus with polyneuropathy Ap ril 2024 5:26pm Hyperlipidemia March 11, 2025 5:2 6pm Osteomyelitis of left foot March 11, 025 5:26pm 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 March 11, 2025 5:26pm Chronic painful diabetic polyneuropathy March 11, 2025 5:26pm Atherosclerosis of both [...] 2025 9:17am Atherosclerosis of coronary artery of [place] heart without angina pectoris May 07, 2025 9:17am Essential hypertension May 07, 2025 9 :17am Hyperlipidemia May 07, 2025 9:17 am Atherosclerosis of both lowe r extremities with bilateral ulceration May 13, 2025 3:35pm PAOD (peripheral arterial occlusive dise ase) May 13, 2025 3:35pm Carotid artery stenosis May 13, 2025 3:35pm Diabetes mellitus with polyneuropathy Ju ne 2024 3:35pm Acute hypoxic respiratory failure April 212024 2:09am Acute UTI May 18, 2025 2:09 am Atherosclerosis of both lowe r extremities with bilateral ulceration May 18, 2025 2:09am Cellulitis of left ankle May 18, 2025 2:09am Sepsis May 18, 2025 2:09 am Type 2 diabetes mellitus with foot ulcer May 18, 2025 2:09am 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 May 18, 2025 2:09am 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 foot with fat layer exposed May 18, 2025 2:09am Non-pressure chronic ulcer o f other part of right foot with fat layer exposed May 18, 2025 2:09am Chief Complaint Admit Date 2024 PH3 maintenance-self [...] April 03, 2025 10:32 am Atherosclerosis of [place] arteries [facility] [place] April 15, 2025 10:51am Atherosclerosis of [place] arteries of [facility] [place] April 15, 2025 4:38pm CAROTID STENOSIS April 20, 2025 1:23p m 2024 3 maintenance-self pay April 23, 2025 8:00am NONTOXIC GOITER April 27, 2025 12:38 pm 1 Y FU May 07, 2025 9:17 am PRE OP May 08, 2025 7:11 am PRE OP May 11, 2025 8:28 am Discuss Surgery May 13, 2025 3:35 pm DIABETIC INFECTED FOOT WOUND, UTI, RHABD O May 18, 2025 2:09am DIABETIC INFECTED FOOT WOUND, UTI, RHABD O May 18, 2025 8:27am DIABETIC INFECTED FOOT WOUND, UTI, RHABD O May 18, 2025 12:57pm 2024 PH3 maintenance-self pay May 19, 2025 6:28am DIABETIC INFECTED FOOT WOUND, UTI, RHABD O May 19, 2025 6:37am DIABETIC INFECTED FOOT WOUND, UTI, RHABD O May 19, 2025 12:46pm DIABETIC INFECTED FOOT WOUND, UTI, RHABD O May 20, 2025 7:33am DIABETIC INFECTED FOOT WOUND, UTI, RHABD O May 21, 2025 11:34am Reason for Visit Admit Date Acute UTI March 07, 2025 4:2 5pm SHAYY (acute kidney injury) March 07 4:25pm Anemia March 07, 2025 4:2 5pm Contusion of left hip March 07, 2025 4 :25pm GI bleed March 07, 2025 4:2 5pm Other specified peripheral vascular dise ases March 07, 2025 4:25pm Recurrent falls March 07, 2025 4:2 5pm [...] March 07, 2 025 4:25pm 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 March 07, 2025 4:25pm Chronic painful diabetic polyneuropathy March 07, 2025 4:25pm SHAYY (acute kidney injury) March 11 5:26pm Chronic kidney disease, stage 3b February [id number] 5:26pm Debility March 11, 2025 5:2 6pm Diabetic foot ulcer March 11, 2025 5:2 6pm Dry gangrene March 11, 2025 5:2 6pm Essential (primary) hypertension February 182024 5:26pm Iron deficiency anemia March 11, 2025 5:26pm Multiple falls March 11, 2025 5:2 6pm Other specified peripheral vascular dise ases March 11, 2025 5:26pm PAOD (peripheral arterial occlusive dise ase) March 11, 2025 5:26pm Rhabdomyolysis March 11, 2025 5:2 6pm Type 2 diabetes mellitus with hyperglyce leon March 11, 2025 5:26pm Urinary tract infection March 11, 2025 5:26pm Diabetes mellitus with polyneuropathy Ap ril 2024 5:26pm Hyperlipidemia March 11, 2025 5:2 6pm Osteomyelitis of left foot March 11, 025 5:26pm 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 March 11, 2025 5:26pm Chronic painful diabetic polyneuropathy March 11, 2025 5:26pm Atherosclerosis of both [...] 2025 9:17am Atherosclerosis of coronary artery of [place] heart without angina pectoris May 07, 2025 9:17am Essential hypertension May 07, 2025 9 :17am Hyperlipidemia May 07, 2025 9:17 am Atherosclerosis of both lowe r extremities with bilateral ulceration May 13, 2025 3:35pm PAOD (peripheral arterial occlusive dise ase) May 13, 2025 3:35pm Carotid artery stenosis May 13, 2025 3:35pm Diabetes mellitus with polyneuropathy Ju 2024 3:35pm Acute hypoxic respiratory failure April 212024 2:09am Acute UTI May 18, 2025 2:09 am Atherosclerosis of both lowe r extremities with bilateral ulceration May 18, 2025 2:09am Cellulitis of left ankle May 18, 2025 2:09am Other specified peripheral vascular dise ases May 18, 2025 2:09am Sepsis May 18, 2025 2:09 am Type 2 diabetes mellitus with foot ulcer May 18, 2025 2:09am 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 May 18, 2025 2:09am 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 foot with fat layer exposed May 18, 2025 2:09am Non-pressure chronic ulcer o f other part of right foot with fat layer exposed May 18, 2025 2:09am Family History Relationship Condition Age at Onset [...] Yes January 18, 2022 10:55am Power of Profile Saw Setup Operator Yes January 18 10:55am Documents on File Type Date Recorded 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 Advance Directive(s) Advance Directive(s) 10/25/2016 10:12 AM Advance Directive(s) 10/25/2016 10:01 AM Advance Directive(s) 10/11/2016 4:06 PM Documents on File Type Date Recorded 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 Advance Directive(s) Advance Directive(s) 10/25/2016 10:12 AM Advance Directive(s) 10/25/2016 10:01 AM Advance Directive(s) 10/11/2016 4:06 PM Documents on File Type Date Recorded 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 Advance Directive(s) 10/25/2016 10:01 AM Documents on File Type Date Recorded 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 Yes October 19, 2024 1:13am Advance Directives Yes April 02 9:13am Advance Directive Response Recorded Date/ Time Living Will Yes October 19 1:13am Do you have a Healthcare Power of Profile Saw Setup Operator? Yes October 19, 2024 1:13am Living Will No March 07, 2025 1:48pm Do you have a Healthcare Power of Profile Saw Setup Operator? No March 07, 2025 1:48pm Advance Directives Yes April 02 9:13am Advance Directive Response Recorded Date/ Time Do you have a Healthcare Pow er of Profile Saw Setup Operator? Yes March 12, 2025 11:42am Name of Medical Power of Profile Saw Setup Operator Julianne Louise n, sister March 12, 2025 11:42am Living Will No March 07, 2025 5:48pm Do you have a Healthcare Pow er of Profile Saw Setup Operator? No March 07, 2025 5:48pm Advance Directives Yes April 02 9:13am Advance Directive Response Recorded Date/ Time Do you have a Healthcare Pow er of Profile Saw Setup Operator? Yes March 12, 2025 11:42am Name of Medical Power of Profile Saw Setup Operator Julianne Louise n, sister March 12, 2025 11:42am Advance Directives on File Yes March 202024 11:26am Living Will Yes April 15, 2025 1 1:26am Do you have a Healthcare Pow er of Profile Saw Setup Operator? Yes April 15, 2025 11:26am Name of Medical Power of Profile Saw Setup Operator Julianne hawkins April 15, 2025 11:26am Advance Directives Yes April 15 11:26am Living Will No March 07, 2025 5:48pm Do you have a Healthcare Pow er of Profile Saw Setup Operator? No March 07, 2025 5:48pm Advance Directive Response Recorded Date/ Time Do you have a Healthcare Pow er of Profile Saw Setup Operator? Yes March 12, 2025 11:42am Name of Medical Power of Profile Saw Setup Operator Julianne Louise n, sister March 12, 2025 11:42am Advance Directives on File Yes March 202024 11:26am Living Will Yes April 15, 2025 1 1:26am Do you have a Healthcare Pow er of Profile Saw Setup Operator? Yes April 15, 2025 11:26am Name of Medical Power of Profile Saw Setup Operator Julianne Louise n April 15, 2025 11:26am Advance Directives Yes April 15 11:26am Living Will Yes April 02, 2024 9 :13am Do you have a Healthcare Pow er of Profile Saw Setup Operator? Yes April 02, 2024 9:13am Living Will No March 07, 2025 5:48pm Do you have a Healthcare Pow er of Profile Saw Setup Operator? No March 07, 2025 5:48pm Advance Directive Response Recorded Date/ Time Do you have a Healthcare Pow er of Profile Saw Setup Operator? Yes March 12, 2025 11:42am Name of Medical Power of Profile Saw Setup Operator Julianne hawkins, sister March 12, 2025 11:42am Advance Directives on File Yes March 202024 11:26am Living Will Yes April 15, 2025 1 1:26am Do you have a Healthcare Pow er of Profile Saw Setup Operator? Yes April 15, 2025 11:26am Name of Medical Power of Profile Saw Setup Operator Julianne hawkins April 15, 2025 11:26am Advance Directives Yes April 15 11:26am Living Will Yes April 02, 2024 9 :13am Do you have a Healthcare Pow er of Profile Saw Setup Operator? Yes April 02, 2024 9:13am Living Will No March 07, 2025 5:48pm Do you have a Healthcare Pow er of Profile Saw Setup Operator? No March 07, 2025 5:48pm Do you have a Healthcare Pow er of Profile Saw Setup Operator? Yes May 17, 2025 9:43pm Name of Medical Power of Profile Saw Setup Operator Miroslava- sister May 17, 2025 9:43pm Advance Directive Response Recorded Date/ Time Do you have a Healthcare Pow er of Profile Saw Setup Operator? Yes March 12, 2025 11:42am Name of Medical Power of Profile Saw Setup Operator Julianne Louise n, sister March 12, 2025 11:42am Advance Directives on File Yes March 202024 11:26am Living Will Yes April 15, 2025 1 1:26am Do you have a Healthcare Pow er of Profile Saw Setup Operator? Yes April 15, 2025 11:26am Name of Medical Power of Profile Saw Setup Operator Julianne hawkins April 15, 2025 11:26am Advance Directives Yes April 15 11:26am Living Will Yes April 02, 2024 9 :13am Do you have a Healthcare Pow er of Profile Saw Setup Operator? Yes April 02, 2024 9:13am Living Will No March 07, 2025 5:48pm Do you have a Healthcare Pow er of Profile Saw Setup Operator? No March 07, 2025 5:48pm Do you have a Healthcare Pow er of Profile Saw Setup Operator? Yes May 18, 2025 2:15am Name of Medical Power of Profile Saw Setup Operator Miroslava- sister May 17, 2025 9:43pm Reason for Referral Specialty Diagnoses / Procedures Referred By Contac t Referred To Contact [facility] Diagnoses Chronic midline low back pain without sciatica Procedures CONSULT TO PHYSICAL THERAPY PHYSICAL THERAPY EVALUATION HIGH COMPLEX 45 MINS Rishi Vasquez, [address] [place] [address] [facility] [address] [place] [address] Referral ID Status Reason Start Date Expiration Date Visits Requested Visits Authorized [id number] Authorized Auto-Generat ed Referral 11/19/2023 11/18/2024 99 99 Specialty Diagnoses / Procedures Referred By Contac t Referred To Contact General Surgery Diagnoses Multiple thyroid nodules Procedures CONSULT TO GENERAL SURGERY OFFICE/OUTPATIENT [facility] MDM 60 MINUTES Rishi Vasquez, [address] [place] [address] Referral ID Status Reason Start Date Expiration Date Visits Requested Visits Authorized [id number] Authorized PCP Requested Referral 01/10/2024 01/09/2025 1 1 Specialty Diagnoses / Procedures Referred By Contac t Referred To Contact Pain Management Diagnoses Chronic midline low back pain without sciatica DDD (degenerative disc disease), lumbar Procedures CONSULT TO PAIN MGT OFFICE/OUTPATIENT [facility] MDM 60 MINUTES Rishi Vasquez DO [address] [place] [address] Referral ID Status Reason Start Date Expiration Date Visits Requested Visits Authorized [id number] Authorized PCP Requested Referral 06/04/2024 06/04/2025 1 [...] or prosecute any alcohol or drug abuse patient.[facility]In the event this information is protected by the Federal Confidentiality of Alcohol and Drug Abuse Patient Records regulations: The Federal rules restrict any use of the information to criminally investigate or prosecute any alcohol or drug abuse patient.[facility] CenterIn the event this information is protected by the Federal Confidentiality of Alcohol and Drug Abuse Patient Records regulations: The Federal rules restrict any use of the information to criminally investigate or prosecute any alcohol or drug abuse patient.[facility] CenterIn the event this information is protected by the Federal Confidentiality of Alcohol and Drug Abuse Patient Records regulations: The Federal rules restrict any use of the information to criminally investigate or prosecute any alcohol or drug abuse patient.[facility] CenterIn the event this information is protected by the Federal Confidentiality of Alcohol and Drug Abuse Patient Records regulations: The Federal rules restrict any use of the information to criminally investigate or prosecute any alcohol or drug abuse patient.[facility] CenterIn the event this information is protected by the Federal Confidentiality of Alcohol and Drug Abuse Patient Records regulations: The Federal rules restrict any use of the information to criminally investigate or prosecute any alcohol or drug abuse patient.[facility] CenterIn the event this information is protected by the Federal Confidentiality of Alcohol and Drug Abuse Patient Records regulations: The Federal rules restrict any use of the information to criminally investigate or prosecute any alcohol or drug abuse patient.[facility] CenterIn the event this information is protected by the Federal Confidentiality of Alcohol and Drug Abuse Patient Records regulations: The Federal rules restrict any use of the information to criminally investigate or prosecute any alcohol or drug abuse patient.[facility] CenterIn the event this information is protected by the Federal Confidentiality of Alcohol and Drug Abuse Patient Records regulations: The Federal rules restrict any use of the information to criminally investigate or prosecute any alcohol or drug abuse patient.[facility] CenterIn the event this information is protected by the Federal Confidentiality of Alcohol and Drug Abuse Patient Records regulations: The Federal rules restrict any use of the information to criminally investigate or prosecute any alcohol or drug abuse patient.[facility] CenterIn the event this information is protected by the Federal Confidentiality of Alcohol and Drug Abuse Patient Records regulations: The Federal rules restrict any use of the information to criminally investigate or prosecute any alcohol or drug abuse patient.[facility] CenterIn the event this information is protected by the Federal Confidentiality of Alcohol and Drug Abuse Patient Records regulations: The Federal rules restrict any use of the information to criminally investigate or prosecute any alcohol or drug abuse patient.[facility] CenterIn the event this information is protected by the Federal Confidentiality of Alcohol and Drug Abuse Patient Records regulations: The Federal rules restrict any use of the information to criminally investigate or prosecute any alcohol or drug abuse patient.[facility] CenterIn the event this information is protected by the Federal Confidentiality of Alcohol and Drug Abuse Patient Records regulations: The Federal rules restrict any use of the information to criminally investigate or prosecute any alcohol or drug abuse patient.[facility] CenterIn the event this information is protected by the Federal Confidentiality of Alcohol and Drug Abuse Patient Records regulations: The Federal rules restrict any use of the information to criminally investigate or prosecute any alcohol or drug abuse patient.[facility] CenterIn the event this information is protected by the Federal Confidentiality of Alcohol and Drug Abuse Patient Records regulations: The Federal rules restrict any use of the information to criminally investigate or prosecute any alcohol or drug abuse patient.[facility] CenterIn the event this information is [...] or prosecute any alcohol or drug abuse patient.[facility] CenterIn the event this information is protected by the Federal Confidentiality of Alcohol and Drug Abuse Patient Records regulations: The Federal rules restrict any use of the information to criminally investigate or prosecute any alcohol or drug abuse patient.[facility] CenterIn the event this information is protected by the Federal Confidentiality of Alcohol and Drug Abuse Patient Records regulations: The Federal rules restrict any use of the information to criminally investigate or prosecute any alcohol or drug abuse patient.[facility] CenterIn the event this information is protected by the Federal Confidentiality of Alcohol and Drug Abuse Patient Records regulations: The Federal rules restrict any use of the information to criminally investigate or prosecute any alcohol or drug abuse patient.[facility] CenterIn the event this information is protected by the Federal Confidentiality of Alcohol and Drug Abuse Patient Records regulations: The Federal rules restrict any use of the information to criminally investigate or prosecute any alcohol or drug abuse patient.[facility] CenterIn the event this information is protected by the Federal Confidentiality of Alcohol and Drug Abuse Patient Records regulations: The Federal rules restrict any use of the information to criminally investigate or prosecute any alcohol or drug abuse patient.[facility] CenterIn the event this information is protected by the Federal Confidentiality of Alcohol and Drug Abuse Patient Records regulations: The Federal rules restrict any use of the information to criminally investigate or prosecute any alcohol or drug abuse patient.[facility] CenterIn the event this information is protected by the Federal Confidentiality of Alcohol and Drug Abuse Patient Records regulations: The Federal rules restrict any use of the information to criminally investigate or prosecute any alcohol or drug abuse patient.[facility] CenterIn the event this information is protected by the Federal Confidentiality of Alcohol and Drug Abuse Patient Records regulations: The Federal rules restrict any use of the information to criminally investigate or prosecute any alcohol or drug abuse patient.[facility] CenterIn the event this information is protected by the Federal Confidentiality of Alcohol and Drug Abuse Patient Records regulations: The Federal rules restrict any use of the information to criminally investigate or prosecute any alcohol or drug abuse patient.[facility] CenterIn the event this information is protected by the Federal Confidentiality of Alcohol and Drug Abuse Patient Records regulations: The Federal rules restrict any use of the information to criminally investigate or prosecute any alcohol or drug abuse patient.[facility] CenterIn the event this information is protected by the Federal Confidentiality of Alcohol and Drug Abuse Patient Records regulations: The Federal rules restrict any use of the information to criminally investigate or prosecute any alcohol or drug abuse patient.[facility] CenterIn the event this information is protected by the Federal Confidentiality of Alcohol and Drug Abuse Patient Records regulations: The Federal rules restrict any use of the information to criminally investigate or prosecute any alcohol or drug abuse patient.[facility] CenterIn the event this information is protected by the Federal Confidentiality of Alcohol and Drug Abuse Patient Records regulations: The Federal rules restrict any use of the information to criminally investigate or prosecute any alcohol or drug abuse patient.[facility] CenterIn the event this information is protected by the Federal Confidentiality of Alcohol and Drug Abuse Patient Records regulations: The Federal rules restrict any use of the information to criminally investigate or prosecute any alcohol or drug abuse patient.[facility] CenterIn the event this information is protected by the Federal Confidentiality of Alcohol and Drug Abuse Patient Records regulations: The Federal rules restrict any use of the information to criminally investigate or prosecute any alcohol or drug abuse patient.[facility] CenterIn the event this information is protected by the Federal Confidentiality of Alcohol and Drug Abuse Patient Records regulations: The Federal rules restrict any use of the information to criminally investigate or prosecute any alcohol or drug abuse patient.[facility] CenterIn the event this information is protected by the Federal Confidentiality of Alcohol and Drug Abuse Patient Records regulations: The Federal rules restrict any use of the information to criminally investigate or prosecute any alcohol or drug abuse patient.[facility] CenterIn the event this information is protected by the Federal Confidentiality of Alcohol and Drug Abuse Patient Records regulations: The Federal rules restrict any use of the information to criminally investigate or prosecute any alcohol or drug abuse patient.[facility] CenterIn the event this information is protected by the Federal Confidentiality of Alcohol and Drug Abuse Patient Records regulations: The Federal rules restrict any use of the information to criminally investigate or prosecute any alcohol or drug abuse patient.[facility] CenterIn the event this information is protected by the Federal Confidentiality of Alcohol and Drug Abuse Patient Records regulations: The Federal rules restrict any use of the information to criminally investigate or prosecute any alcohol or drug abuse patient.[facility] CenterIn the event this information is protected by the Federal Confidentiality of Alcohol and Drug Abuse Patient Records regulations: The Federal rules restrict any use of the information to criminally investigate or prosecute any alcohol or drug abuse patient.[facility] CenterIn the event this information is protected by the Federal Confidentiality of Alcohol and Drug Abuse Patient Records regulations: The Federal rules restrict any use of the information to criminally investigate or prosecute any alcohol or drug abuse patient.[facility] CenterIn the event this information is protected by the Federal Confidentiality of Alcohol and Drug Abuse Patient Records regulations: The Federal rules restrict any use of the information to criminally investigate or prosecute any alcohol or drug abuse patient.[facility] CenterIn the event this information is protected by the Federal Confidentiality of Alcohol and Drug Abuse Patient Records regulations: The Federal rules restrict any use of the information to criminally investigate or prosecute any alcohol or drug abuse patient.[facility] CenterIn the event this information is protected by the Federal Confidentiality of Alcohol and Drug Abuse Patient Records regulations: The Federal rules restrict any use of the information to criminally investigate or prosecute any alcohol or drug abuse patient.[facility] CenterIn the event this information is protected by the Federal Confidentiality of Alcohol and Drug Abuse Patient Records regulations: The Federal rules restrict any use of the information to criminally investigate or prosecute any alcohol or drug abuse patient.[facility] CenterIn the event this information is protected by the Federal Confidentiality of Alcohol and Drug Abuse Patient Records regulations: The Federal rules restrict any use of the information to criminally investigate or prosecute any alcohol or drug abuse patient.[facility] CenterIn the event this information is protected by the Federal Confidentiality of Alcohol and Drug Abuse Patient Records regulations: The Federal rules restrict any use of the information to criminally investigate or prosecute any alcohol or drug abuse patient.[facility] CenterIn the event this information is protected by the Federal Confidentiality of Alcohol and Drug Abuse Patient Records regulations: The Federal rules restrict any use of the information to criminally investigate or prosecute any alcohol or drug abuse patient.[facility] CenterIn the event this information is protected by the Federal Confidentiality of Alcohol and Drug Abuse Patient Records regulations: The Federal rules restrict any use of the information to criminally investigate or prosecute any alcohol or drug abuse patient.[facility] CenterIn the event this information is protected by the Federal Confidentiality of Alcohol and Drug Abuse Patient Records regulations: The Federal rules restrict any use of the information to criminally investigate or prosecute any alcohol or drug abuse patient.[facility] CenterIn the event this information is protected by the Federal Confidentiality of Alcohol and Drug Abuse Patient Records regulations: The Federal rules restrict any use of the information to criminally investigate or prosecute any alcohol or drug abuse patient.[facility] CenterIn the event this information is protected by the Federal Confidentiality of Alcohol and Drug Abuse Patient Records regulations: The Federal rules restrict any use of the information to criminally investigate or prosecute any alcohol or drug abuse patient.[facility] CenterIn the event this information is protected by the Federal Confidentiality of Alcohol and Drug Abuse Patient Records regulations: The Federal rules restrict any use of the information to criminally investigate or prosecute any alcohol or drug abuse patient.[facility] CenterIn the event this information is protected by the Federal Confidentiality of Alcohol and Drug Abuse Patient Records regulations: The Federal rules restrict any use of the information to criminally investigate or prosecute any alcohol or drug abuse patient.[facility] CenterIn the event this information is protected by the Federal Confidentiality of Alcohol and Drug Abuse Patient Records regulations: The Federal rules restrict any use of the information to criminally investigate or prosecute any alcohol or drug abuse patient.[facility] CenterIn the event this information is protected by the Federal Confidentiality of Alcohol and Drug Abuse Patient Records regulations: The Federal rules restrict any use of the information to criminally investigate or prosecute any alcohol or drug abuse patient.[facility] CenterIn the event this information is protected by the Federal Confidentiality of Alcohol and Drug Abuse Patient Records regulations: The Federal rules restrict any use of the information to criminally investigate or prosecute any alcohol or drug abuse patient.[facility] CenterIn the event this information is protected by the Federal Confidentiality of Alcohol and Drug Abuse Patient Records regulations: The Federal rules restrict any use of the information to criminally investigate or prosecute any alcohol or drug abuse patient.[facility] CenterIn the event this information is protected by the Federal Confidentiality of Alcohol and Drug Abuse Patient Records regulations: The Federal rules restrict any use of the information to criminally investigate or prosecute any alcohol or drug abuse patient.[facility] CenterIn the event this information is protected by the Federal Confidentiality of Alcohol and Drug Abuse Patient Records regulations: The Federal rules restrict any use of the information to criminally investigate or prosecute any alcohol or drug abuse patient.[facility] CenterIn the event this information is protected by the Federal Confidentiality of Alcohol and Drug Abuse Patient Records regulations: The Federal rules restrict any use of the information to criminally investigate or prosecute any alcohol or drug abuse patient.[facility] CenterIn the event this information is protected by the Federal Confidentiality of Alcohol and Drug Abuse Patient Records regulations: The Federal rules restrict any use of the information to criminally investigate or prosecute any alcohol or drug abuse patient.[facility] CenterIn the event this information is protected by the Federal Confidentiality of Alcohol and Drug Abuse Patient Records regulations: The Federal rules restrict any use of the information to criminally investigate or prosecute any alcohol or drug abuse patient.[facility] CenterIn the event this information is protected by the Federal Confidentiality of Alcohol and Drug Abuse Patient Records regulations: The Federal rules restrict any use of the information to criminally investigate or prosecute any alcohol or drug abuse patient.[facility] CenterIn the event this information is protected by the Federal Confidentiality of Alcohol and Drug Abuse Patient Records regulations: The Federal rules restrict any use of the information to criminally investigate or prosecute any alcohol or drug abuse patient.[facility] CenterIn the event this information is protected by the Federal Confidentiality of Alcohol and Drug Abuse Patient Records regulations: The Federal rules restrict any use of the information to criminally investigate or prosecute any alcohol or drug abuse patient.[facility] CenterIn the event this information is protected by the Federal Confidentiality of Alcohol and Drug Abuse Patient Records regulations: The Federal rules restrict any use of the information to criminally investigate or prosecute any alcohol or drug abuse patient.[facility] CenterIn the event this information is [...] or prosecute any alcohol or drug abuse patient.[facility] CenterIn the event this information is protected by the Federal Confidentiality of Alcohol and Drug Abuse Patient Records regulations: The Federal rules restrict any use of the information to criminally investigate or prosecute any alcohol or drug abuse patient.[facility] CenterIn the event this information is protected by the Federal Confidentiality of Alcohol and Drug Abuse Patient Records regulations: The Federal rules restrict any use of the information to criminally investigate or prosecute any alcohol or drug abuse patient.[facility] CenterIn the event this information is protected by the Federal Confidentiality of Alcohol and Drug Abuse Patient Records regulations: The Federal rules restrict any use of the information to criminally investigate or prosecute any alcohol or drug abuse patient.[facility] CenterIn the event this information is protected by the Federal Confidentiality of Alcohol and Drug Abuse Patient Records regulations: The Federal rules restrict any use of the information to criminally investigate or prosecute any alcohol or drug abuse patient.[facility] CenterIn the event this information is protected by the Federal Confidentiality of Alcohol and Drug Abuse Patient Records regulations: The Federal rules restrict any use of the information to criminally investigate or prosecute any alcohol or drug abuse patient.[facility] CenterIn the event this information is protected by the Federal Confidentiality of Alcohol and Drug Abuse Patient Records regulations: The Federal rules restrict any use of the information to criminally investigate or prosecute any alcohol or drug abuse patient.[facility] CenterIn the event this information is protected by the Federal Confidentiality of Alcohol and Drug Abuse Patient Records regulations: The Federal rules restrict any use of the information to criminally investigate or prosecute any alcohol or drug abuse patient.[facility] CenterIn the event this information is protected by the Federal Confidentiality of Alcohol and Drug Abuse Patient Records regulations: The Federal rules restrict any use of the information to criminally investigate or prosecute any alcohol or drug abuse patient.[facility] CenterIn the event this information is protected by the Federal Confidentiality of Alcohol and Drug Abuse Patient Records regulations: The Federal rules restrict any use of the information to criminally investigate or prosecute any alcohol or drug abuse patient.[facility] CenterIn the event this information is protected by the Federal Confidentiality of Alcohol and Drug Abuse Patient Records regulations: The Federal rules restrict any use of the information to criminally investigate or prosecute any alcohol or drug abuse patient.[facility] CenterIn the event this information is protected by the Federal Confidentiality of Alcohol and Drug Abuse Patient Records regulations: The Federal rules restrict any use of the information to criminally investigate or prosecute any alcohol or drug abuse patient.[facility] CenterIn the event this information is protected by the Federal Confidentiality of Alcohol and Drug Abuse Patient Records regulations: The Federal rules restrict any use of the information to criminally investigate or prosecute any alcohol or drug abuse patient.[facility] CenterIn the event this information is protected by the Federal Confidentiality of Alcohol and Drug Abuse Patient Records regulations: The Federal rules restrict any use of the information to criminally investigate or prosecute any alcohol or drug abuse patient.[facility] CenterIn the event this information is protected by the Federal Confidentiality of Alcohol and Drug Abuse Patient Records regulations: The Federal rules restrict any use of the information to criminally investigate or prosecute any alcohol or drug abuse patient.[facility] CenterIn the event this information is protected by the Federal Confidentiality of Alcohol and Drug Abuse Patient Records regulations: The Federal rules restrict any use of the information to criminally investigate or prosecute any alcohol or drug abuse patient.[facility] Reason for Visit (unrecogniz ed section and content) Reason Comments PT Discharge Physical Therapy Specialty Diagnoses / Procedures Referred By Contac t Referred To Contact [facility] Diagnoses Chronic midline low back pain without sciatica Procedures CONSULT TO PHYSICAL THERAPY PHYSICAL THERAPY EVALUATION HIGH COMPLEX 45 MINS Rishi Vasquez, DO [address] [place] [address] [facility] [place] [address] [place] [address] Referral ID Status Reason Start Date Expiration Date Visits Requested Visits Authorized [id number] Authorized Auto-Generat ed Referral 11/19/2023 11/18/2024 99 99 Reason Comments Physical Therapy Reason Comments Radiology US Specialty Diagnoses / Procedures Referred By Viraj banegas Referred To Contact [facility] Diagnoses Abnormal thyroid function test Procedures US THYROID/PARATHYROID US SOFT TISSUE HEAD & NECK REAL TIME IMGE DOCM Rishi Vasquez, DO [address] [place] [address] [place] [address] Referral ID Status Reason Start Date Expiration Date V isits Requested Visits Authorized [id number] Closed Auto-Generate d Referral 12/15/2022 01/14/2024 1 [...] WITH IMAGE LIMITED Danyelle Tripp PA-C [address] [place] [address] [facility] [address] [place] [address] Referral ID Status Reason Start Date Expiration Date V isits Requested Visits Authorized [id number] Closed Auto-Generate d Referral 05/29/2023 06/27/2024 1 1 Reason Comments Radiology NM Specialty Diagnoses / Procedures Referred By Contac t Referred To Contact [facility] Diagnoses Abnormal thyroid function test Procedures NM THY UPTAKE AND SCAN THYROID UPTAKE W/BLOOD FLOW SNGLE/MULT JAMARI NATALIA Rishi Vasquez, DO [address] [place] [address] [facility] [address] [place] [address] Referral ID Status Reason Start Date Expiration Date V isits Requested Visits Authorized [id number] Closed Auto-Generate d Referral 12/15/2022 01/14/2024 1 1 Reason Onset Date Comments Refill Request 10/03/2023 Reason Comments Radiology US Specialty Diagnoses / Procedures [facility] Referred To Contact [facility] Diagnoses Multiple thyroid nodules Procedures US THYROID/PARATHYROID US SOFT TISSUE HEAD & NECK REAL TIME IMGE DOCRishi Morton, DO [address] [place] [address] [place] [address] Referral ID Status Reason Start Date Expiration Date V isits Requested Visits Authorized [id number] Closed Auto-Generate d Referral 12/05/2023 01/03/2025 1 1 Reason Comments PT Eval Reason Onset Date Comments Refill Request 01/28/2024 Reason Comments Patient Update Reason Comments Results Reason Onset Date Comments Refill Request 03/22/2024 Reason Comments Orders Reason Comments Patient Update Reason Comments Patient Question Fish oil - [place] 3 Reason Comments Patient Question Reason Onset Date Comments Refill Request 12/25/2024 Reason Comments HH Nursing POC Reason Comments [facility] PT POC Reason Comments ER F/U [facility] -03/20 Multiple falls, gangrene SADIE feet Reason Comments [facility] Plan of Care Reason Comments diabetic f/up Reason Comments Diabetes Reason Comments Medication Problem Care Teams (unrecognized sec tion and content) Supply Chain Analyst Relationship Specialty Start Date End Date Rishi Vasquez, DO [address] [facility] [place] [address] PCP - General Family Practice 03/26/13 Supply Chain Analyst Relationship Specialty Start Date End Date Rishi Vasquez, DO [address] [facility] [address] PCP - General Family Practice 03/26/13 Supply Chain Analyst Relationship Specialty Start Date End Date Rishi Vasquez, DO [address] [facility] [address] PCP - General Family Practice 03/26/13 Supply Chain Analyst Relationship Specialty Start Date End Date Rishi Vasquez, DO [address] [place] [address] PCP - General Family Practice 03/26/13 Supply Chain Analyst Relationship Specialty Start Date End Date Rishi Vasquez, DO [address] [facility] [address] PCP - General Family Practice 03/26/13 Supply Chain Analyst Relationship Specialty Start Date End Date Rishi Vasquez, DO [address] [place] [address] PCP - General Family Practice 03/26/13 Supply Chain Analyst Relationship Specialty Start Date End Date Rishi Vasquez, DO [address] [facility] [address] PCP - General Family Practice 03/26/13 Supply Chain Analyst Relationship Specialty Start Date End Date Rishi Vasquez, DO [address] [facility] [address] PCP - General Family Practice 03/26/13 Supply Chain Analyst Relationship Specialty Start Date End Date Rishi Vasquez, DO [address] [place] [address] PCP - General Family Practice 03/26/13 Supply Chain Analyst Relationship Specialty Start Date End Date Rishi Vasquez, DO [address] [place] [address] PCP - General Family Practice 03/26/13 Supply Chain Analyst Relationship Specialty Start Date End Date Rishi Vasquez, DO [address] [place] [address] PCP - General Family Practice 03/26/13 Supply Chain Analyst Relationship Specialty Start Date End Date Rishi Vasquez, DO [address] [place] [address] PCP - General Family Medicine 03/26/13 Supply Chain Analyst Relationship Specialty Start Date End Date Rishi Vasquez, DO [address] [place] [address] PCP - General Family Medicine 03/26/13 Supply Chain Analyst Relationship Specialty Start Date End Date Rishi Vasquez, DO [address] [place] [address] PCP - General Family Medicine 03/26/13 Supply Chain Analyst Relationship Specialty Start Date End Date Rishi Vasquez, DO [address] [place] [address] PCP - General Family Medicine 03/26/13 Supply Chain Analyst Relationship Specialty Start Date End Date Rishi Vasquez, DO [address] [place] [address] PCP - General Family Medicine 03/26/13 Supply Chain Analyst Relationship Specialty Start Date End Date Rishi Vasquez, DO [address] [place] [address] PCP - General Family Medicine 03/26/13 Team [...] Primary Care Provider, Attend ing Provider Active Supply Chain Analyst Relationship Specialty Start Date End Date Rishi Vasquez DO [address] [facility] [address] PCP - General Family Medicine 03/26/13 Supply Chain Analyst Relationship Specialty Start Date End Date Rishi Vasquez DO [address] [place] [address] PCP - General Family Medicine 03/26/13 Supply Chain Analyst Relationship Specialty Start Date End Date Rishi Vasquez DO [address] [facility] [address] PCP - General Family Medicine 03/26/13 Team Status: Inactive Member Role Status Dates Dr. Rishi Vasquez DO Primary Care Provider, Referr ing Provider Active Rick Bergeron MEDICAL AIDE, MEDICAL AIDE-C Attending Provider Active Supply Chain Analyst Relationship Specialty Start Date End Date Rishi Vasquez DO [address] [facility] [place] [address] PCP - General Family Medicine 03/26/13 Supply Chain Analyst Relationship Specialty Start Date End Date Rishi Vasquez DO [address] [place] [address] PCP - General Family Medicine 03/26/13 Supply Chain Analyst Relationship Specialty Start Date End Date Rishi Vasquez DO [address] [place] [address] PCP - General Family Medicine 03/26/13 Supply Chain Analyst Relationship Specialty Start Date End Date Rishi Vasquze DO [address] [place] [address] PCP - General Family Medicine 03/26/13 Team [...] Moscoso MD Attending Provider, Referring Provider Active Supply Chain Analyst Relationship Specialty Start Date End Date Rishi Vasquez DO [address] [place] [address] PCP - General Family Medicine 03/26/13 Team Status: Inactive Member Role Status Dates Dr. Rishi Vasquez DO Primary Care Provider, Referr ing Provider Active Dr. Kwaku Moscoso MD Attending Provider Active Supply Chain Analyst Relationship Specialty Start Date End Date Rishi Vasquez DO [address] [place] [address] PCP - General Family Medicine 03/26/13 Team Status: Inactive Member Role Status Dates Dr. Rishi Vasquez DO Primary Care Provider Active Dr. Brandon Membreno , DPM Attending Provider, Referring Provider Active Supply Chain Analyst Relationship Specialty Start Date End Date Rishi Vasquez DO [address] [place] [address] PCP - General Family Medicine 03/26/13 Supply Chain Analyst Relationship Specialty Start Date End Date Rishi Vasquez DO [address] [place] [address] PCP - General Family Medicine 03/26/13 Supply Chain Analyst Relationship Specialty Start Date End Date Rishi Vasquez DO [address] [place] [address] PCP - General Family Medicine 03/26/13 Supply Chain Analyst Relationship Specialty Start Date End Date Rishi Vasquez DO [address] [place] [address] PCP - General Family Medicine 03/26/13 Supply Chain Analyst Relationship Specialty Start Date End Date Rishi Vasquez DO [address] [place] [address] PCP - General Family Medicine 03/26/13 Supply Chain Analyst Relationship Specialty Start Date End Date Rishi Vasquez DO [address] [place] [address] PCP - General Family Medicine 03/26/13 Supply Chain Analyst Relationship Specialty Start Date End Date Rishi Vasquez DO [address] [place] [address] PCP - General Family Medicine 03/26/13 Supply Chain Analyst Relationship Specialty Start Date End Date Rishi Vasquez DO [address] [place] [address] PCP - General Family Medicine 03/26/13 Supply Chain Analyst Relationship Specialty Start Date End Date Rishi Vasquez DO [address] [facility] [place] [address] PCP - General Family Medicine 03/26/13 Team Status: Inactive Member Role Status Dates Dr. Rishi Vasquez DO Primary Care Provider, Referr ing Provider Active Dr. Ciaran Jacobo MD Attending Provider Active Supply Chain Analyst Relationship Specialty Start Date End Date Rishi Vasquez DO [address] [place] [address] PCP - General Family Medicine 03/26/13 Supply Chain Analyst Relationship Specialty Start Date End Date Rishi Vasquez DO [address] [place] [address] PCP - General Family Medicine 03/26/13 Supply Chain Analyst Relationship Specialty Start Date End Date Rishi Vasquez DO [address] [place] [address] PCP - General Family Medicine 03/26/13 Team Status: Active Member Role Status Dates Dr. Rishi Vasquez DO Primary Care Provider Active Dr. Elyssa Fierro MD Attending Provider Activ e Team Status: Inactive Member Role Status Dates Dr. Rishi Vasquez DO Primary Care Provider Active Dr. Ciaran Jacobo MD Attending Provider, Referring Provider Active Supply Chain Analyst Relationship Specialty Start Date End Date Rishi Vasquez DO [address] [facility] [place] [address] PCP - General Family Medicine 03/26/13 Supply Chain Analyst Relationship Specialty Start Date End Date Rishi Vasquez DO [address] [place] [address] PCP - General Family Medicine 03/26/13 Supply Chain Analyst Relationship Specialty Start Date End Date Rsihi Vasquez DO [address] [place] [address] PCP - General Family Medicine 03/26/13 Supply Chain Analyst Relationship Specialty Start Date End Date Rishi Vasquez DO [address] [facility] [place] [address] PCP - General Family Medicine 03/26/13 Supply Chain Analyst Relationship Specialty Start Date End Date Rishi Vasquez DO [address] [place] [address] PCP - General Family Medicine 03/26/13 Supply Chain Analyst Relationship Specialty Start Date End Date Rishi Vasquez DO [address] [place] [address] PCP - General Family Medicine 03/26/13 Supply Chain Analyst Relationship Specialty Start Date End Date Rishi Vasquez DO [address] [facility] [place] [address] PCP - General Family Medicine 03/26/13 Supply Chain Analyst Relationship Specialty Start Date End Date Rishi Vasquez DO [address] [place] [address] PCP - General Family Medicine 03/26/13 Supply Chain Analyst Relationship Specialty Start Date End Date Rishi Vasquez DO [address] [place] [address] PCP - General Family Medicine 03/26/13 Supply Chain Analyst Relationship Specialty Start Date End Date Rishi Vasquez DO [address] [place] [address] PCP - General Family Medicine 03/26/13 Supply Chain Analyst Relationship Specialty Start Date End Date Rishi Vasquez DO [address] [place] [address] PCP - General Family Medicine 03/26/13 Supply Chain Analyst Relationship Specialty Start Date End Date Rishi Vasquez DO [address] [place] [address] PCP - General Family Medicine 03/26/13 Clary Andres, 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.RAIL CAR REPAIRER [address] [place] [address] Research Compliance Specialist [facility] 10/26/24 Yani Watts, 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.RAIL CAR REPAIRER [address] [place] [address] [facility] 10/26/24 Supply Chain Analyst Relationship Specialty Start Date End Date Rishi Vasquez DO [address] [place] [address] PCP - General Family Medicine 03/26/13 Clary Andres, 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.RAIL CAR REPAIRER [address] [place] [address] Research Compliance Specialist [facility] 10/26/24 VioletaYani, 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.RAIL CAR REPAIRER [address] [place] [address] [facility] 10/26/24 Team Status: Active Member Role [...] Active Member Role Status Dates Dr. Rishi Vasqeuz DO Primary Care Provider Active Start: February [...] Referring Provider Active Start: March 07, 2025 Supply Chain Analyst Relationship Specialty Start Date End Date Rishi Vasquez DO [address] [facility] [place] [address] PCP - General Family Medicine 03/26/13 [facility] 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.RAIL CAR REPAIRER [address] [facility] [place] [address] Research Compliance Specialist [facility] 10/26/24 Supply Chain Analyst Relationship Specialty Start Date End Date Rishi Vasquez DO [address] [facility] [address] PCP - General Family Medicine 03/26/13 [facility], 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.RAIL CAR REPAIRER [address] [facility] [place] [address] [facility] 10/26/24 Supply Chain Analyst Relationship Specialty Start Date End Date Rishi Vasquez DO [address] [place] [address] PCP - General [facility] 03/26/13 [facility], 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.RAIL CAR REPAIRER [address] [facility] [address] [facility] 10/26/24 Team Status: Inactive Member [...] Start: March 10, 2025 Dr. Esteban Becker , Emergency Provider Active Start : March 10, 2025 Dr. Maddie Merchant MD Admit Provider Active St art: March 10, 2025 Dr. Maddie Merchant MD Referring Provider Active Start: March 10, 2025 Dr. Maddie Merchatn MD Other Provider Active St art: March [...] art: March 10, 2025 Dr. Patel Irene , DPM Other Provider Active St art: March [...] art: March 11, 2025 Dr. Patel Irene , [place] Other Provider Active St art: March 11, [...] 2025 End: March 20, 2025 Dr. Phong Al MD Admit Provider Active Star t: March 11, 2025 End: March 20, 2025 Dr. Phong Al MD Attending Provider Active Start: March 11, 2025 End: March 20, 2025 Dr. Phong Al MD Referring Provider Active Start: March 11, [...] Active Start: March 13, 2025 Dr. Phong Al MD Admit Provider Active Star t: March 13, 2025 Dr. Phong Al MD Referring Provider Active Start: March 13, 2025 Dr. Phong Al MD Other Provider Active Star t: March [...] 2025 End: March 19, 2025 Dr. Phong Al MD Attending Provider Active Start: March 19, 2025 End: March 19, 2025 Dr. Phong Al MD Referring Provider Active Start: March 19, [...] April 15, 2025 End: April 15, 2025 Supply Chain Analyst Relationship Specialty Start Date End Date Rishi Vasquez DO [address] [place], [place] [address] PCP - General Family Medicine 03/26/13 [facility], 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.RAIL CAR REPAIRER [address] [place], [place] [address] Research Compliance Specialist [facility] 10/26/24 Supply Chain Analyst Relationship Specialty Start Date End Date Rishi Vasquez DO [address] [place], [place] [address] PCP - General [facility] 03/26/13 [facility], 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.RAIL CAR REPAIRER [address] [place], [place] [address] [facility] 10/26/24 Team Status: Inactive Member [...] Referring Provider Active Start: April 21, 2025 Supply Chain Analyst Relationship Specialty Start Date End Date Rishi Vasquez DO [address] [facility] [address] PCP - [facility] 03/26/13 [facility], 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.RAIL CAR REPAIRER [address] [facility] [place], [place] [address] [facility] 10/26/24 Team Status: Active Member Role [...] April 27, 2025 End: April 27, 2025 Supply Chain Analyst Relationship Specialty Start Date End Date Rishi Vasquez DO [address] [facility] [address] PCP [facility] 03/26/13 [facility] Yani, 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.RAIL CAR REPAIRER [address] [facility] [address] [facility] 10/26/24 Team Status: Active Member Role [...] 2025 End: May 07, 2025 Rick Bergeron MEDICAL AIDE, MEDICAL AIDE-C Attending Provider Active S tart: May 07, 2025 End: May 07, 2025 Supply Chain Analyst Relationship Specialty Start Date End Date Rishi Vasquez DO [address] [place], [place] [address] PCP - General Family Medicine 03/26/13 Yani Watts, TAY.RAIL CAR REPAIRER [address] [place], [place] [address] [facility] 10/26/24 Ld Escobedo, 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.RAIL CAR REPAIRER [address] [place], [place] [address] [facility] 05/04/25 Team Status: Inactive Member Role [...] May 13, 2025 End: May 13, 2025 Team Status: Active Member Role/Relationship Status Dates Dr. Rishi Vasquez DO Primary Care Provider Active Team Status: Inactive Member Role/Relationship Status Dates Dr. Rishi Vasquez DO Primary Care Provider Active Start: February 05, 2025 End: February 16, 2025 Dr. Rishi Vasquez DO Attending Provider Active Start: February 05, 2025 End: February 16, 2025 Dr. Rishi Vasquez DO Referring Provider Active Start: February 05, 2025 End: February 16, 2025 Team Status: Inactive Member Role/Relationship Status Dates Dr. Rishi Vasquez DO Primary Care Provider Active Start: February 16, 2025 End: February 16, 2025 Dr. Ciaran Berry DPM Attending Provider Active Start: February 16, 2025 End: February 16, 2025 Dr. Ciaran Berry DPM Referring Provider Active Start: February 16, 2025 End: February 16, 2025 Team Status: Inactive Member Role/Relationship Status Dates Dr. Rishi Vasquez DO Primary Care Provider Active Start: February 17, 2025 End: March 18, 2025 Dr. Rishi Vasquez DO Attending Provider Active Start: February 17, 2025 End: March 18, 2025 Dr. Rishi Vasquez DO Referring Provider Active Start: February 17, 2025 End: March 18, 2025 Team Status: Inactive Member Role/Relationship Status Dates Dr. Rishi Vasquez DO Primary Care Provider Active Start: February 26, 2025 End: February 26, 2025 Dr. Patel Irene DPM Attending Provider Active Start: February 26, 2025 End: February 26, 2025 Dr. Patel Irene DPM Referring Provider Active Start: February 26, 2025 End: February 26, 2025 Team Status: Inactive Member Role/Relationship Status Dates Dr. Rishi Vasquez DO Primary [...] March 11, 2025 Team Status: Active Member Role/Relationship Status Dates Dr. Rishi Vasquez DO Primary [...] March 08, 2025 Team Status: Active Member Role/Relationship Status Dates Dr. Rishi Vasquez DO Primary Care Provider Active Start: March 09, 2025 Dr. Esteban Becker DO Emergency Provider Active Start : March 09, 2025 Dr. Maddie Merchant MD Admit Provider Active St art: March 09, 2025 Dr. Maddie Merchant MD Other Provider Active St art: March 09, 2025 Dr. Patel Irene DPM Other Provider Active St art: March 09, 2025 DrRon Cornejo MD Other Provider Active Start: March 09, 2025 Dr. Russell Clement MD Other Provider Active Start : March 09, 2025 Dr. Broderick Dempsey MD Attending Provider Active Start: March 09, 2025 Team Status: Active Member Role/Relationship Status Dates Dr. Rishi Vasquez DO Primary [...] March 09, 2025 Team Status: Active Member Role/Relationship Status Dates Dr. Rishi Vasquez DO Primary [...] March 10, 2025 Team Status: Active Member Role/Relationship Status Dates Dr. Rishi Vasquez DO Primary [...] March 10, 2025 Team Status: Active Member Role/Relationship Status Dates Dr. Rishi Vasquez DO Primary [...] March 11, 2025 Team Status: Inactive Member Role/Relationship Status Dates Dr. Rishi Vasquez DO Primary Care Provider Active Start: March 11, 2025 End: March 20, 2025 Dr. Phong Al MD Admit Provider Active Star t: March 11, 2025 End: March 20, 2025 Dr. Phong Al MD Attending Provider Active Start: March 11, 2025 End: March 20, 2025 Dr. Phong Al MD Referring Provider Active Start: March 11, 2025 End: March 20, 2025 Dr. Kwaku Mendoza MD Other Provider Active Start: March 11, 2025 End: March 20, 2025 Dr. Patel Irene DPM Other Provider Active St art: March 11, 2025 End: March 20, 2025 LILLIAM Gilmore Other Provider Active Start: A 2024 End: March 20, 2025 Team Status: Active Member Role/Relationship Status Dates Dr. Rishi Vasquez DO Primary Care Provider Active Start: March 13, 2025 Dr. Phong Al MD Admit Provider Active Star t: March 13, 2025 Dr. Phong Al MD Referring Provider Active Start: March 13, 2025 Dr. Phong Al MD Other Provider Active Star t: March 13, 2025 Dr. Kwaku Mendoza MD Other Provider Active Start: March 13, 2025 Dr. Patel Irene DPM Other Provider Active St art: March 13, 2025 LILLIAM Gilmore Attending Provider Active Star t: March 13, 2025 LILLIAM Gilmore Other Provider Active Start: A 2024 Team Status: Inactive Member Role/Relationship Status Dates Dr. Rishi Vasquez DO Primary Care Provider Active Start: March 19, 2025 End: April 18, 2025 Dr. Rishi Vasquez DO Attending Provider Active Start: March 19, 2025 End: April 18, 2025 Dr. Rishi Vasquez DO Referring Provider Active Start: March 19, 2025 End: April 18, 2025 Team Status: Inactive Member Role/Relationship Status Dates Dr. Rishi Vasquez DO Primary Care Provider Active Start: March 19, 2025 End: March 19, 2025 Dr. Phong Al MD Attending Provider Active Start: March 19, 2025 End: March 19, 2025 Dr. Phong Al MD Referring Provider Active Start: March 19, 2025 End: March 19, 2025 Team Status: Inactive Member Role/Relationship Status Dates Dr. Rishi Vasquez DO Primary Care Provider Active Start: April 03, 2025 End: April 03, 2025 Dr. Rishi Vasquez DO Referring Provider Active Start: April 03, 2025 End: April 03, 2025 LILLIAM Gilmore Attending Provider Active Star t: April 03, 2025 End: April 03, 2025 Team Status: Inactive Member Role/Relationship Status Dates Dr. Rishi Vasquez DO Primary Care Provider Active Start: April 15, 2025 End: April 15, 2025 Dr. Russell Clement MD Attending Provider Active S tart: April 15, 2025 End: April 15, 2025 Dr. Russell Clement MD Referring Provider Active S tart: April 15, 2025 End: April 15, 2025 Team Status: Active Member Role/Relationship Status Dates Dr. Rishi Vasquez DO Primary Care Provider Active Start: April 15, 2025 Dr. Russell Clement MD Attending Provider Active S tart: April 15, 2025 Dr. Russell Clement MD Referring Provider Active S tart: April 15, 2025 Dr. Russell Clement MD Other Provider Active Start : April 15, 2025 Team Status: Inactive Member Role/Relationship Status Dates Dr. Rishi Vasquez DO Primary Care Provider Active Start: April 20, 2025 End: April 20, 2025 LILLIAM Gilmore Attending Provider Active Star t: April 20, 2025 End: April 20, 2025 LILLIAM Gilmore Referring Provider Active Star t: April 20, 2025 End: April 20, 2025 Team Status: Active Member Role/Relationship Status Dates Dr. Rishi Vasquez DO Primary Care Provider Active Start: April 20, 2025 Dr. Russell lCement MD Attending Provider Active S tart: April 20, 2025 LILLIAM Gilmore Referring Provider Active Star t: April 20, 2025 Team Status: Active Member Role/Relationship Status Dates Dr. Rishi Vasquez DO Primary Care Provider Active Start: April 23, 2025 Dr. Rishi Vasquez DO Attending Provider Active Start: April 23, 2025 Dr. Rishi Vasquez DO Referring Provider Active Start: April 23, 2025 Team Status: Inactive Member Role/Relationship Status Dates Dr. Rishi Vasquez DO Primary Care Provider Active Start: April 27, 2025 End: April 27, 2025 Dr. Ciaran Renee MD Attending Provider Active Start: April 27, 2025 End: April 27, 2025 Dr. Ciaran Renee MD Referring Provider Active Start: April 27, 2025 End: April 27, 2025 Team Status: Inactive Member Role/Relationship Status Dates Dr. Rishi Vasquez DO Primary Care Provider Active Start: May 07, 2025 End: May 07, 2025 Dr. Rishi Vasquez DO Referring Provider Active Start: May 07, 2025 End: May 07, 2025 Rick Bergeron MEDICAL AIDE, MEDICAL AIDE-C Attending Provider Active S tart: May 07, 2025 End: May 07, 2025 Team Status: Inactive Member Role/Relationship Status Dates Dr. Rishi Vasquez DO Primary Care Provider Active Start: May 08, 2025 End: May 08, 2025 Dr. Jarret Quiles MD Attending Provider Active Start: May 08, 2025 End: May 08, 2025 Dr. Jarret Quiles MD Referring Provider Active Start: May 08, 2025 End: May 08, 2025 Team Status: Active Member Role/Relationship Status Dates Dr. Rishi Vasquez DO Primary Care Provider Active Start: May 11, 2025 Dr. Jarret Quiles MD Attending Provider Active Start: May 11, 2025 Dr. Jarret Quiles MD Referring Provider Active Start: May 11, 2025 Dr. Jarret Quiles MD Other Provider Active Star t: May 11, 2025 Team Status: Inactive Member Role/Relationship Status Dates Dr. Rishi Vasquez DO Primary Care Provider Active Start: May 13, 2025 End: May 13, 2025 Dr. Rishi Vasquez DO Referring Provider Active Start: May 13, 2025 End: May 13, 2025 LILLIAM Gilmore Attending Provider Active Star t: May 13, 2025 End: May 13, 2025 Team Status: Active Member Role/Relationship Status Dates Dr. Rishi Vasquez DO Primary Care Provider Active Start: May 18, 2025 Dr. Jerri Castillo DO Referring Provider Active S tart: May 18, 2025 Dr. Jerri Castillo DO Emergency Provider Active S tart: May 18, 2025 Dr. Maddie Merchant MD Admit Provider Active St art: May 18, 2025 Dr. Maddie Merchant MD Attending Provider Active Start: May 18, 2025 Dr. Maddie Merchant MD Other Provider Active St art: May 18, 2025 Team Status: Inactive Member Role/Relationship Status Dates Dr. Rishi Vasquez DO Primary Care Provider Active Start: April 23, 2025 End: May 18, 2025 Dr. Rishi Vasquez DO Attending Provider Active Start: April 23, 2025 End: May 18, 2025 Dr. Rishi Vasquez DO Referring Provider Active Start: April 23, 2025 End: May 18, 2025 Team Status: Active Member Role/Relationship Status Dates Dr. Rishi Vasquez DO Primary Care Provider Active Start: May 18, 2025 Dr. Jerri Castillo DO Referring Provider Active S tart: May 18, 2025 Dr. Jerri Castillo DO Emergency Provider Active S tart: May 18, 2025 Dr. Maddie Merchant MD Admit Provider Active St art: May 18, 2025 Dr. Maddie Merchant MD Other Provider Active St art: May 18, 2025 Dr. Michaela Joshua DO Attending Provider Active S tart: May 18, 2025 Dr. Neo Lockwood MD Other Provider Active Start: May 18, 2025 Dr. Carlos Cota MD Other Provider Active Start: May 18, 2025 Dr. Avinash Cervantes MD Other Provider Active Star t: May 18, 2025 Dr. Jacinto Tamez DO Other Provider Active Start : May 18, 2025 Dr. Christos Beard MD Other Provider Active Sta rt: May 18, 2025 Dr. Santos Knox MD Other Provider Active St art: May 18, 2025 Dr. Mando Lopez MD Other Provider Active S tart: May 18, 2025 Dr. Shanae Lang MD Other Provider Active Start: May 18, 2025 Dr. Jason Arellano MD Other Provider Active Start : May 18, 2025 Dr. Jeb Park MD Other Provider Active Start: May 18, 2025 Dr. Gian Orozco MD Other Provider Active Start : May 18, 2025 Dr. Vida Day MD Other Provider Active Star t: May 18, 2025 Dr. Quincy Galeas MD Other Provider Active Sta rt: May 18, 2025 Dr. Zaira Villalobos MD Other Provider Active Sta rt: May 18, 2025 Dr. Jabier Celaya MD Other Provider Active Star t: May 18, 2025 Dr. Marcus Gunter MD Other Provider Active St art: May 18, 2025 Dr. Jonathan Barber MD Other Provider Active Star t: May 18, 2025 Dr. Lavell Rodriges , Other Provider Active St art: May 18, 2025 Dr. Caren Rodriguez MD Other Provider Active Start: May 18, 2025 Dr. Kee Cast MD Other Provider Active St art: May 18, 2025 Dr. Andrew Patel , Other Provider Active Start: May 18, 2025 Dr. Refugio Sharma MD Other Provider Active Star t: May 18, 2025 Dr. Washington Flores MD Other Provider Active Sta rt: May 18, 2025 Dr. Patel Irene DPM Other Provider Active St art: May 18, 2025 Dr. Russell Clement MD Other Provider Active Start : May 18, 2025 Dr. Kwaku Mendoza MD Other Provider Active Start: May 18, 2025 Team Status: Active Member Role/Relationship Status Dates Dr. Rishi Vasquez DO Primary Care Provider Active Start: May 18, 2025 Dr. Jerri Castillo DO Referring Provider Active S tart: May 18, 2025 Dr. Jerri Castillo DO Emergency Provider Active S tart: May 18, 2025 Dr. Maddie Merchant MD Admit Provider Active St art: May 18, 2025 Dr. Maddie Merchant MD Other Provider Active St art: May 18, 2025 Dr. Michaela Joshua DO Other Provider Active Start : May 18, 2025 Dr. Neo Lockwood MD Other Provider Active Start: May 18, 2025 Dr. Carlos Cota MD Other Provider Active Start: May 18, 2025 Dr. Avinsah Cervantes MD Other Provider Active Star t: May 18, 2025 Dr. Jacinto Tamez , Attending Provider Active S tart: May 18, 2025 Dr. Jacinto Tamez DO Other Provider Active Start : May 18, 2025 Dr. Christos Beard MD Other Provider Active Sta rt: May 18, 2025 Dr. Santos Knox MD Other Provider Active St art: May 18, 2025 Dr. Mando Lopez MD Other Provider Active S tart: May 18, 2025 Dr. Shanae Lang MD Other Provider Active Start: May 18, 2025 Dr. Jason Arellano MD Other Provider Active Start : May 18, 2025 Dr. Jeb Park MD Other Provider Active Start: May 18, 2025 Dr. Gian Orozco MD Other Provider Active Start : May 18, 2025 Dr. Vida Day MD Other Provider Active Star t: May 18, 2025 Dr. Quincy Galeas MD Other Provider Active Sta rt: May 18, 2025 Dr. Zaira Villalobos MD Other Provider Active Sta rt: May 18, 2025 Dr. Jabier Celaya MD Other Provider Active Star t: May 18, 2025 Dr. Marcus Gunter MD Other Provider Active St art: May 18, 2025 Dr. Jonathan Barber MD Other Provider Active Star t: May 18, 2025 Dr. Lavell Rodriges DO Other Provider Active St art: May 18, 2025 Dr. Caren Rodriguez MD Other Provider Active Start: May 18, 2025 Dr. Kee Cast MD Other Provider Active St art: May 18, 2025 Dr. Andrew Patel DO Other Provider Active Start: May 18, 2025 Dr. Refugio Sharma MD Other Provider Active Star t: May 18, 2025 Dr. Washington Flores MD Other Provider Active Sta rt: May 18, 2025 Dr. Patel Irene DPM Other Provider Active St art: May 18, 2025 Dr. Russell Clement MD Other Provider Active Start : May 18, 2025 Dr. Kwaku Mendoza MD Other Provider Active Start: May 18, 2025 Team Status: Active Member Role/Relationship Status Dates Dr. Rishi Vasquez , Primary Care Provider Active Start: May 18, 2025 Dr. Jerri Castillo DO Referring Provider Active S tart: May 18, 2025 Dr. Jerri Castillo DO Emergency Provider Active S tart: May 18, 2025 Dr. Maddie Merchant MD Admit Provider Active St art: May 18, 2025 Dr. Maddie Merchant MD Other Provider Active St art: May 18, 2025 Dr. Michaela Joshua DO Other Provider Active Start : May 18, 2025 Dr. Neo Lockwood MD Other Provider Active Start: May 18, 2025 Dr. Carlos Cota MD Other Provider Active Start: May 18, 2025 Dr. Avinash Cervantes MD Other Provider Active Star t: May 18, 2025 Dr. Jacinto Tamez , Other Provider Active Start : May 18, 2025 Dr. Christos Beard MD Other Provider Active Sta rt: May 18, 2025 Dr. Santos Knox MD Other Provider Active St art: May 18, 2025 Dr. Mando Lopez MD Other Provider Active S tart: May 18, 2025 Dr. Shanae Lang MD Other Provider Active Start: May 18, 2025 Dr. Jason Arellano MD Other Provider Active Start : May 18, 2025 Dr. Jeb Park MD Other Provider Active Start: May 18, 2025 Dr. Gian Orozco MD Other Provider Active Start : May 18, 2025 Dr. Vida Day MD Other Provider Active Star t: May 18, 2025 Dr. Quincy Galeas MD Other Provider Active Sta rt: May 18, 2025 Dr. Zaira Villalobos MD Other Provider Active Sta rt: May 18, 2025 Dr. Jabier Celaay MD Other Provider Active Star t: May 18, 2025 Dr. Marcus Gunter MD Other Provider Active St art: May 18, 2025 Dr. Jonathan Barber MD Other Provider Active Star t: May 18, 2025 Dr. Lavell Rodriges DO Other Provider Active St art: May 18, 2025 Dr. Caren Rodriguez MD Other Provider Active Start: May 18, 2025 Dr. Kee Cast MD Other Provider Active St art: May 18, 2025 Dr. Andrew Patel DO Other Provider Active Start: May 18, 2025 Dr. Refugio Sharma MD Other Provider Active Star t: May 18, 2025 Dr. Washington Flores MD Other Provider Active Sta rt: May 18, 2025 Dr. Patel Irene , DPM Other Provider Active St art: May 18, 2025 Dr. Russell Clement MD Attending Provider Active S tart: May 18, 2025 Dr. Russell Clement MD Other Provider Active Start : May 18, 2025 Dr. Kwaku Mendoza MD Other Provider Active Start: May 18, 2025 Team Status: Inactive Member Role/Relationship Status Dates Dr. Rishi Vasquez DO Primary Care Provider Active Start: May 18, 2025 End: May 21, 2025 Dr. Jerri Castillo DO Referring Provider Active S tart: May 18, 2025 End: May 21, 2025 Dr. Jerri Castillo DO Emergency Provider Active S tart: May 18, 2025 End: May 21, 2025 Dr. Maddie Merchant MD Admit Provider Active St art: May 18, 2025 End: May 21, 2025 Dr. Maddie Merchant MD Other Provider Active St art: May 18, 2025 End: May 21, 2025 Dr. Michaela Joshua DO Attending Provider Active S tart: May 18, 2025 End: May 21, 2025 Dr. Kwaku Mendoza MD Other Provider Active Start: May 18, 2025 End: May 21, 2025 Dr. Patel Irene , [place] Other Provider Active St art: May 18, 2025 End: May 21, 2025 Dr. Russell Clement MD Other Provider Active Start : May 18, 2025 End: May 21, 2025 Team Status: Active Member Role/Relationship Status Dates Dr. Rishi Vasquez DO Primary Care Provider Active Start: May 19, 2025 Dr. Rishi Vasquez DO Attending Provider Active Start: May 19, 2025 Dr. Rishi Vasquez DO Referring Provider Active Start: May 19, 2025 Team Status: Active Member Role/Relationship Status Dates Dr. Rishi Vasquez DO Primary Care Provider Active Start: May 19, 2025 Dr. Jerri Castillo DO Referring Provider Active S tart: May 19, 2025 Dr. Jerri Castillo DO Emergency Provider Active S tart: May 19, 2025 Dr. Maddie Merchant MD Admit Provider Active St art: May 19, 2025 Dr. Maddie Merchant MD Other Provider Active St art: May 19, 2025 Dr. Michaela Joshua DO Other Provider Active Start : May 19, 2025 Dr. Neo Lockwood MD Other Provider Active Start: May 19, 2025 Dr. Carlos Cota MD Other Provider Active Start: May 19, 2025 Dr. Avinash Cervantes MD Other Provider Active Star t: May 19, 2025 Dr. Jacinto Tamez DO Attending Provider Active S tart: May 19, 2025 Dr. Jacinto Tamez DO Other Provider Active Start : May 19, 2025 Dr. Christos Beard MD Other Provider Active Sta rt: May 19, 2025 Dr. Santos Knox MD Other Provider Active St art: May 19, 2025 Dr. Mando Lopez MD Other Provider Active S tart: May 19, 2025 Dr. Shanae Lang MD Other Provider Active Start: May 19, 2025 Dr. Jason Arellano MD Other Provider Active Start : May 19, 2025 Dr. Jeb Park MD Other Provider Active Start: May 19, 2025 Dr. Gian Orozco MD Other Provider Active Start : May 19, 2025 Dr. Vida Day MD Other Provider Active Star t: May 19, 2025 Dr. Quincy Galeas MD Other Provider Active Sta rt: May 19, 2025 Dr. Zaira Villalobos MD Other Provider Active Sta rt: May 19, 2025 Dr. Jabier Celaya MD Other Provider Active Star t: May 19, 2025 Dr. Marcus Gunter MD Other Provider Active St art: May 19, 2025 Dr. Jonathan Barber MD Other Provider Active Star t: May 19, 2025 Dr. Lavell Rodriges DO Other Provider Active St art: May 19, 2025 Dr. Caren Rodriguez MD Other Provider Active Start: May 19, 2025 Dr. Kee Cast MD Other Provider Active St art: May 19, 2025 Dr. Andrew Patel DO Other Provider Active Start: May 19, 2025 Dr. Refugio Sharma MD Other Provider Active Star t: May 19, 2025 Dr. Washington Flores MD Other Provider Active Sta rt: May 19, 2025 Dr. Patel Irene DPM Other Provider Active St art: May 19, 2025 Dr. Russell Clement MD Other Provider Active Start : May 19, 2025 Dr. Kwaku Mendoza MD Other Provider Active Start: May 19, 2025 Team Status: Active Member Role/Relationship Status Dates Dr. Rishi Vasquez , Primary Care Provider Active Start: May 19, 2025 Dr. Jerri Castillo DO Referring Provider Active S tart: May 19, 2025 Dr. Jerri Castillo DO Emergency Provider Active S tart: May 19, 2025 Dr. Maddie Merchant MD Admit Provider Active St art: May 19, 2025 Dr. Maddie Merchant MD Other Provider Active St art: May 19, 2025 Dr. Michaela Joshua DO Attending Provider Active S tart: May 19, 2025 Dr. Michaela Joshua DO Other Provider Active Start : May 19, 2025 Dr. Neo Lockwood MD Other Provider Active Start: May 19, 2025 Dr. Carlos Cota MD Other Provider Active Start: May 19, 2025 Dr. Avinash Cervantes MD Other Provider Active Star t: May 19, 2025 Dr. Jacinto Tamez DO Other Provider Active Start : May 19, 2025 Dr. Christos Beard MD Other Provider Active Sta rt: May 19, 2025 Dr. Santos Knox MD Other Provider Active St art: May 19, 2025 Dr. Mando Lopez MD Other Provider Active S tart: May 19, 2025 Dr. Shanae Lang MD Other Provider Active Start: May 19, 2025 Dr. Jason Arellano MD Other Provider Active Start : May 19, 2025 Dr. Jeb Park MD Other Provider Active Start: May 19, 2025 Dr. Gian Orozco MD Other Provider Active Start : May 19, 2025 Dr. Vida Day MD Other Provider Active Star t: May 19, 2025 Dr. Quincy Galeas MD Other Provider Active Sta rt: May 19, 2025 Dr. Zaira Villalobos MD Other Provider Active Sta rt: May 19, 2025 Dr. Jabier Celaya MD Other Provider Active Star t: May 19, 2025 Dr. Marcus Gunter MD Other Provider Active St art: May 19, 2025 Dr. Jonathan Barber MD Other Provider Active Star t: May 19, 2025 Dr. Lavell Rodriges , Other Provider Active St art: May 19, 2025 Dr. Caren Rodriguez MD Other Provider Active Start: May 19, 2025 Dr. Kee Cast MD Other Provider Active St art: May 19, 2025 Dr. Andrew Patel , Other Provider Active Start: May 19, 2025 Dr. Refugio Sharma MD Other Provider Active Star t: May 19, 2025 Dr. Washington Flores MD Other Provider Active Sta rt: May 19, 2025 Dr. Patel Irene DPM Other Provider Active St art: May 19, 2025 Dr. Russell Clement MD Other Provider Active Start : May 19, 2025 Dr. Kwaku Mendoza MD Other Provider Active Start: May 19, 2025 Team Status: Active Member Role/Relationship Status Dates Dr. Rishi Vasquez DO Primary Care Provider Active Start: May 20, 2025 Dr. Jerri Castillo DO Referring Provider Active S tart: May 20, 2025 Dr. Jerri Castillo DO Emergency Provider Active S tart: May 20, 2025 Dr. Maddie Merchant MD Admit Provider Active St art: May 20, 2025 Dr. Maddie Merchant MD Other Provider Active St art: May 20, 2025 Dr. Michaela Joshua , Attending Provider Active S tart: May 20, 2025 Dr. Michaela Joshua , Other Provider Active Start : May 20, 2025 Dr. Kwaku Mendoza MD Other Provider Active Start: May 20, 2025 Dr. Patel Irene DPM Other Provider Active St art: May 20, 2025 Dr. Russell Clement MD Other Provider Active Start : May 20, 2025 Team Status: Active Member Role/Relationship Status Dates Dr. Rishi Vasquez DO Primary Care Provider Active Start: May 21, 2025 Dr. Jerri Castillo DO Referring Provider Active S tart: May 21, 2025 Dr. Jerri Castillo DO Emergency Provider Active S tart: May 21, 2025 Dr. Maddie Merchant MD Admit Provider Active St art: May 21, 2025 Dr. Maddie Merchant MD Other Provider Active St art: May 21, 2025 Dr. Michaela Joshua , Attending Provider Active S tart: May 21, 2025 Dr. Michaela Joshua DO Other Provider Active Start : May 21, 2025 Dr. Kwaku Mendoza MD Other Provider Active Start: May 21, 2025 Dr. Patel Irene DPM Other Provider Active St art: May 21, 2025 Dr. Russell Clement MD Other Provider Active Start : May 21, 2025 INFORMATION SOURCE (unrecogn ized section and content) DATE CREATED AUTHOR 05/12/2025 [facility] DATE CREATED AUTHOR AUTHOR'S ORGANIZ ATION 05/20/2025 [facility] FOR RECORDS PERTAINING TO PATIENTS WHO [...] BE BASED ON THE PRIMARY CLINICAL RECORDS. [employer] provides no warranty or guarantee of the accuracy or completeness of information in this document.
[2025-05-22 12:24] LABS: Hematocrit 29.6 % (37-47); Hemoglobin 9.5 g/dL (12.0-15.0); Immature Granulocytes Count 0.090 X10^3/uL (0.0-0.0); Mean Corp Hgb Conc 32.1 g/dL (32-36); Mean Corpuscular Volume 90.2 fL (81-99); Mean Platelet Vol. 10.9 fl (6.2-12.0); NRBC Flagged by Analyzer 0 % (0-5); Platelet Count 214 K/mm3 (150-450); RBC Distribution Width CV 15.8 % (11.6-14.6); RBC Distribution Width SD 52.4 fl (35.1-43.9); Red Blood Count 3.28 M/mm3 (4.2-5.4); White Blood Count 7.2 K/mm3 (4.4-11.0)
[2025-05-22] MEDS: 0.9% Normal Saline (1000mL) 1,000 ML 999 ML IV (12:26)
--- NOTE | 2025-05-22 12:56 | ED.RN ---
Brother asked if pt would be able to go to a prison for rehab from her today. Per brother, pt was offered that yesterday. I explained with it being a holiday that it was not an option. Brother asked what the options were for her due to pt not being able to care for herself. I explained that she would have to be admitted and they would have to work on it Sunday.
[2025-05-22 13:13] LABS: AST(SGOT) 58 U/L (<=31); Alanine Aminotransfer ALT/SGPT 41 U/L (<=34); Albumin, Serum 2.9 g/dL (3.4-4.8); Alkaline Phosphatase 55 U/L (35-104); Anion Gap 13 (5-15); BUN 56 mg/dL (4-19); BUN/Creat Ratio 45.7 RATIO (10-20); Calcium,Total 9.2 mg/dL (7.6-11.0); Carbon Dioxide 19.0 mmol/L (21.0-32.0); Chloride 109 mmol/L (98-108); Estimated Creatinine Clearance 42.00 ml/min (50-250); Globulin 3.3 g/dL (2.2-4.2); Glucose 216 mg/dL (70-99); Potassium 4.3 mmol/L (3.3-5.1)
--- NOTE | 2025-05-22 13:29 | PCM.HP.STD ---
HPI - General General Date of Admission: 05/22/25 Date of Service: 05/22/25 Chief Complaint: Generalized weakness HPI Narrative KIMBERLY NEWMAN, is a 75 F who presented to [facility] ED on 05/22/2025 with generalized weakness. Patient was hospitalized here from 05/18-05/21, was just discharged home yesterday. She was admitted for sepsis secondary to suspected UTI but notably has severe peripheral vascular disease and diabetes with bilateral lower extremity ulceration and wounds. Podiatry, ID and vascular surgery followed. Patient had surgical skin grafting done with Dr. Irene with podiatry on 05/20. Wound cultures were growing MRSA and patient was discharged home on linezolid. Plan is for open revascularization with vascular surgery next Sunday. Patient had weakness and borderline therapy scores but she only wanted rehab in our TCU and no bed was available, so she opted to discharge home with home health care. However she had had a small fall while transferring this morning at home and was unable to get herself up, so she was brought to the ED for further evaluation. Patient was hemodynamically stable on room air and labs were stable from previous. Given worsening weakness and inability to care for self at home, hospitalist was contacted for admission. I saw the patient at bedside in the ED, family member present. Patient was sitting back comfortably in bed, conversing normally, in no acute distress. She admitted that she should not have gone home on discharge due to her weakness. She realized that she was unable to take care of herself and will need physical therapy and rehab on discharge. She had a small fall onto her bottom, did not hit anything else with the fall. Denies any acute pain or discomfort currently. Will be admitted for further management. 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 Chronic painful diabetic polyneuropathy MRSA (methicillin resistant staph aureus) culture positive Depression Diabetes Back pain Vertigo History of pain when walking Hypertension Arthritis Wears dentures Post-menopausal Low iron High cholesterol Easy bruising Neuropathy Dietary restriction Former smoker Cardiology follow-up encounter History of torn meniscus of left knee Carotid artery stenosis Essential hypertension Skin lesion Hammer toe of left foot Osteomyelitis Chronic kidney disease, stage 3 Atherosclerosis of coronary artery of [place] heart without angina pectoris Hyperlipidemia Peripheral vascular occlusive disease Hammer toe of second toe of left foot Hallux valgus (acquired), right foot Healed ulcer of left foot on examination Chronic ulcer of left foot with fat layer exposed Delayed wound healing Malnutrition Osteomyelitis of foot 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 Methicillin resistant Staphylococcus aureus infection Chronic osteomyelitis of left foot Non-healing ulcer of right foot DM2 (diabetes mellitus, type 2) Home Medications ?Medication ?Instructions ?Recorded ?Last Taken ?Type aspirin 81 mg tablet,delayed 81 mg PO QHS blood clots 01/13/14 04/14/25 History release multivitamin with folic acid 400 1 tab PO DAILY Supplement 01/13/14 11/14/16 History mcg tablet omega-3 fatty acids-fish oil 340 1 ea PO DAILY supplement 06/29/16 08/27/16 History mg-1,000 mg capsule ferrous sulfate 325 mg (65 mg 325 mg PO DAILY SUPPLEMENT 08/15/18 03/08/25 History iron) tablet ascorbic acid (vitamin C) 500 mg 1,000 mg PO LUNCH Supplement 11/25/20 03/11/25 11:50 History tablet calcium carbonate (Calcium 600) 600 mg PO DAILY supplement 12/29/21 Unknown History clopidogrel 75 mg tablet 75 mg PO DAILY Blood clots #90 tabs 10/23/24 04/15/25 Rx Lactobacillus acidophilus 600 mg PO QDAY gi 03/07/25 03/11/25 09:00 History (Acidophilus capsule) pregabalin 100 mg capsule 100 mg PO TID nerve pain 03/07/25 03/11/25 11:50 History simvastatin 20 mg tablet 20 mg PO QHS cholesterol #30 tabs 03/23/25 Unknown Rx nystatin 100,000 unit/gram topical 1 applic topical BID PRN rash 05/07/25 Unknown History powder (Nyamyc) acetaminophen 650 mg 650 mg PO Q12H PRN pain 05/08/25 Unknown History tablet,extended release amlodipine 5 mg tablet 5 mg PO DAILY HTN #90 tabs 05/12/25 Unknown Rx metoprolol succinate 25 mg 12.5 mg (1/2 x 25 mg) PO DAILY 05/12/25 Unknown Rx tablet,extended release 24 hr HEART RATE #45 tabs glimepiride 2 mg tablet 2 mg PO BID 05/18/25 Unknown History collagenase clostridium histo. 250 1 applic topical DAILY #15 grams 05/21/25 Unknown Rx unit/gram topical ointment (Santyl) linezolid 600 mg tablet 600 mg PO BID #21 tabs 05/21/25 Unknown Rx Allergy/AdvReac Type Severity Reaction Status Date / Time Sulfa (Sulfonamide Allergy Unknown Verified 05/22/25 11:05 Antibiotics) Family History Father CAD (coronary artery disease) Heart disease Hypertension CVA (cerebral vascular accident) Mother COPD (chronic obstructive pulmonary disease) Hypertension Heart disease Heart failure Surgical History History of cardiac catheterization History of colonoscopy History of foot surgery History of repair of left rotator cuff History of total left knee replacement (~2014) History of angioplasty of peripheral vessel (~2012) amputation left toe History of left heart catheterization (~01/20/14) Social History household members: none Smoking Status: Former smoker how long ago did patient quit smokin years ago alcohol intake: never substance use type: does not use caffeine: No ROS Constitutional Constitutional: Reports weakness; Denies chills, fatigue or fever(s) Eyes Eyes: Denies change in vision Cardiovascular Cardiovascular: Denies chest pain Respiratory/Chest Respiratory/Chest: Denies shortness of breath at rest Gastrointestinal Gastrointestinal: Denies abdominal pain Musculoskeletal Musculoskeletal: Denies arthralgias or myalgias Neurologic Neurologic: Denies dizziness, focal weakness or headache(s) Vital Signs Vital Signs Vital Signs: 05/22/25 11:05 05/22/25 11:42 Temperature 98 F Temperature Source Temporal Pulse Rate 81 Respiratory Rate 18 Blood Pressure 124/74 H Blood Pressure Mean 90 Pulse Ox 98 Oxygen Delivery Method Room Air Room Air Weight Weight: 73 kg Body Mass Index (BMI) 25.9 Physical Exam Const alert, oriented x3, no apparent distress and average body habitus Constitutional Narrative: Elderly female, mildly fatigued appearing, otherwise sitting back comfortably in bed, conversing normally, in no acute distress. General Appearance: cooperative and comfortable HEENT normocephalic, head/scalp atraumatic, hearing grossly normal bilaterally, nasal mucous membranes and turbinates normal and moist oral mucous membranes Eyes PERRL, EOMs intact bilaterally and conjunctivae normal Neck full ROM Chest inspection of chest normal Resp normal respiratory effort, normal air movement, no use of accessory muscles and clear to auscultation bilaterally Cardio regular rate, regular rhythm, no murmurs and peripheral pulses 2+ throughout GI normal to inspection, nondistended, normoactive bowel sounds, soft to palpation, non-tender and non-distended Back/Spine normal ROM Extremity Extremity Narrative: Bilateral lower extremities with Mar[place] wrap in place up to the knees. Brace in place on left foot up to mid lower left leg as well. Psych mental status grossly normal Results Lab / Micro Data 05/22/25 12:15 05/22/25 12:15 Labs: Laboratory Results - last 24 hr 05/22/25 12:15: WBC 7.2, RBC 3.28 L, Hgb 9.5 L, Hct 29.6 L, MCV 90.2, MCH 29.0, MCHC 32.1, RDW Std Deviation 52.4 H, RDW Coeff of Jorgito 15.8 H, Plt Count 214, MPV 10.9, Immature Gran % (Auto) 1.300 H, Neut % (Auto) 78.4 H, Lymph % (Auto) 9.1 L, Wells % (Auto) 9.0, Eos % (Auto) 1.5, Baso % (Auto) 0.7, Absolute Neuts (auto) 5.6, Absolute Lymphs (auto) 0.65 L, Nucleated RBC % 0, Sodium 140, Potassium 4.3, Chloride 109 H, Carbon Dioxide 19.0 L, Anion Gap 13, BUN 56 H, Creatinine 1.22 H, Estim Creat Clear Calc 42.00 L, Est GFR (MDRD) Non-Af 47 L, BUN/Creatinine Ratio 45.7 H, Glucose 216 H, Calcium 9.2, Total Bilirubin 0.33, AST 58 H, ALT 41 H, Alkaline Phosphatase 55, Total Protein 6.2, Albumin 2.9 L, Globulin 3.3, Albumin/Globulin Ratio 0.9 Assessment & Plan Assessment/Plan (1) Generalized weakness: PLAN: Plan Patient is a 75-year-old female who presented to [facility] ED on 05/22/2025 with generalized weakness. 1. Acute on chronic debility ? Admit under observation status to [facility]. PT/OT/case management consulted. Patient with borderline therapy scores during recent hospitalization and recommendation was for rehab, but patient wanted only TCU here and with this not available opted for home with home health care. She is agreeable to SNF placement on this discharge once medically ready. Appreciate therapy recommendations. 2. Bilateral lower extremity ulcerations and wounds in setting of severe peripheral vascular disease and diabetes ? Podiatry, ID and vascular surgery followed during recent hospitalization. Had skin grafting done with podiatry on 05/20. Plan is for open revascularization with vascular surgery next Saturday 05/26. Suspect patient will still be hospitalized then so we will tentatively plan for procedure well inpatient. Notably had MRSA growing on recent wound cultures and was discharged home on linezolid; continue p.o. linezolid. Wound care consulted. Will hold on further consults for now but if patient remains hospitalized, can plan for vascular surgery consult early next week. 3. Chronic normocytic anemia secondary to iron deficiency ? Hemoglobin 9.5 on admit. Stable at recent baseline. Continue home iron supplement. 4. History of CAD, hypertension, hyperlipidemia ? Stable. Continue home aspirin, Plavix, Toprol, amlodipine and statin. Notably may need to discuss with vascular surgery if Plavix needs to be held prior to procedure. 5. Type 2 diabetes mellitus with diabetic neuropathy ? A1c 7.6% on 05/18. Blood glucose 216 on admit. Only on home glimepiride. Will treat with sliding scale insulin with meals while inpatient, adjust as needed. 6. Mild creatinine elevation ? Creatinine 1.22 on admit. Per prior notes, baseline is around 0.9-1.1. Had SHAYY during recent hospitalization and creatinine on this admission is continuing to improve from previous. Continue to monitor daily BMP and urine output. DVT prophylaxis: Heparin subcu CODE STATUS: Full code, verified Expected disposition: TBD Total clinical time spent by myself addressing the patient's medical issues, reviewing all the data, and collaborating with patient's care team: 75 minutes. Charges/Coding Visit Charges Inpatient E&M: 16753 Init Hosp L3
--- OUTSIDE RECORDS SUMMARY | 2025-05-22 14:13 | XMS RPT_ITS | CCD ---
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 Kwaku Abraham Other Provider Roof AIRBORNE OPERATIONS, YULY Tripathi Attending Provider Rishi Vasquez DO Primary Care Provider Dr. Rishi Vasquez Primary Care Provider Dr. Kwaku Moscoso Attending Provider Dr. Kwaku Moscoso Referring Provider Dr. Rishi Vasquez Referring Provider Rishi Vasquez DO Primary Care Provider Roof AIRBORNE OPERATIONS, YULY Tripathi Attending Provider Dr. Rishi Vasquez Primary Care Provider CeDr. Kwaku sanchez Attending Provider Danis, Dr. Kwaku Abraham Referring Provider Dr. Rishi Vasquez Referring Provider Roof AIRBORNE OPERATIONS, AIRBORNE OPERATIONSFavio Tripathi Attending Provider Dr. Rishi Vasquez Primary [...] Provider Vasquez, Dr. Blackwell Referring Provider Roof AIRBORNE OPERATIONS, AIRBORNE OPERATIONSFavio Tripathi Attending Provider CeDr. Kwaku sanchez Attending [...] Provider Dr. Elyssa Fierro Attending Provider Dmitry IRON INSTALLER.Clary FLORES Unavailable Violeta CROSS.Yani FLORES Unavailable Dr. Rishi Vasquez DO Primary Care Provider Pedro DO, Dr. Blackwell Attending Provider Pedro EUCEDA, Dr. Blackwell Referring Provider Onley DPM, Dr. Taylor Attending Provider Onley DPM, Dr. Taylor Referring Provider Irene DPM, [...] EUCEDA, Dr. Blackwell Primary Care Provider [phone] Pedro DO, Dr. Blackwell Attending Provider Pedro EUCEDA, Dr. Blackwell Referring Provider Shnoda LUNDBERG, Dr. Maddie Lawrence Other Provider Irene [...] Provider Urbano LUNDBERG, Dr. Wells Referring Provider 1([facility])[phone] Pedro EUCEDA, Dr. Blackwell Primary Care Provider [phone] Pedro EUCEDA, Dr. Blackwell Attending Provider Pedro EUCEDA, Dr. Blackwell Referring Provider 1([facility] )[phone] Haseeb DPM, Dr. Taylor Attending Provider Haseeb DPM, Dr. Taylor Referring Provider Pedro EUCEDA, Dr. Blackwell Primary Care Provider Pedro EUECDA, Dr. Blackwell Attending Provider Pedro DO, Dr. Blackwell Referring Provider Macarena VYAS, Abena Referring Provider 1([facility])[phone] Pedro EUCEDA, Dr. Blackwell Primary Care Provider Teto MOHAMUD, Dr. Sweeney Attending Provider Víctor LUNDBERG, Dr. Wagoner Attending Provider Víctor LUNDBERG, Dr. Wagoner Referring Provider 1([facility])[phone] Pedro EUCEDA, Dr. Blackwell Primary Care Provider Urbano LUNDBERG, Dr. Wells Attending Provider 1([facility])[phone] [facility] AIRBORNE OPERATIONS-CRick Attending Provider 1([facility])[phone] Chandra IRON INSTALLER.SHIRT MARKER, Ld Reis Unavailable VASQUEZ, RISHI L Primary Care Unavailable VASQUEZ, RISHI L Attending Unavailable VASQUEZ, RISHI L Primary Care Unavailable VASQUEZ, RISHI L Referring Unavailable VASQUEZ, RISHI L Primary Care Unavailable CLARY ANDRES Referring Unavailabl e RISHI VASQUEZ L Primary Care Unavailable LD ESCOBEDO Attending Unavailable VASQUEZ, RISHI L Primary [...] Provider Urbano LUNDBERG, Dr. Wells Referring Provider Macarena VYAS, Abena Referring Provider Víctor LUNDBERG, Dr. Wagoner Attending Provider Víctor LUNDBERG, Dr. Wagoner Referring Provider Rubio BARAJAS-Rick Bowen Attending Provider Kb LUNDBERG, Dr. Wheat Attending Provider Kb LUNDBERG, Dr. Wheat Referring Provider Kb LUNDBERG, Dr. Wheat Other Provider Jonathan EUCEDA, Dr. Guthrie Referring Provider [phone] Jonathan EUCEDA, Dr. Guthrie Emergency Provider Shonda LUNDBERG, Dr. Maddie Lawrence Attending Provider Tres EUCDEA, Dr. Jennings Attending Provider [phone] Fabián LUNDBERG, Dr. Larson Other Provider Beata LUNDBERG, Dr. Gonzalez Other Provider Billy LUNDBERG, Dr. Da Silva Other Provider Dashawn EUCEDA, Dr. Casey Other Provider Kisha LUNDBERG, Dr. Christos Correa Other Provider Abilio LUNDBERG, Dr. Graham Other Provider Jessica LUNDBERG, Dr. Gilmore Other Provider Rickey LUNDBERG, Dr. Jolly Other Provider Adan LUNDBERG, Dr. Gomez Other Provider Dr. Jeb Park MD Other Provider [phone] Dr. Gian Orozco MD Other Provider Barb LUNDBERG, Dr. Mcpherson Other Provider Dr. Quincy Galeas MD Other Provider [facility] albert Villalobos MD, Dr. Meneses Other Provider Yomi LUNDBERG, Dr. Eugene Other Provider Lyric LUNDBERG, Dr. Velazquez Other Provider [phone] lEisabeth LUNDBERG, Dr. Castillo Other Provider Dr. Lavell Rodriges DO Other Provider [phone] Jennifer LUNDBERG, Dr. Fabian Other Provider [phone] Keke Cast MD, Dr. Sweet Other Provider Dr. Andrew Patel DO Other Provider Zachary LUNDBERG, Dr. Huff Other Provider [phone] Mark LUNDBERG, Dr. Delarosa Other Provider Tres EUCEDA, Dr. Jennings Other Provider [phone] Dashawn EUCEDA, Dr. Casey Attending Provider Urbano, Russell Attending Unavailable Alexandria, Russell Referring Unavailable Vasquez, Rishi Primary Care Unavailable Michaela Joshua Attending Unavailable Ungur, Remus Referring Unavailable White, Maddie L Consulting Unavailable White, Maddie L Admitting Unavailable Vasquez, Rishi Primary Care Unavailable Kelly, Kwaku Consulting Unavailable Irene, Patel Consulting Unavailable Alexandria, Russell Consulting Unavailable Urbano, Russell Attending Unavailable Alexandria, Russell Referring Unavailable Alexandria, Russell Admitting Unavailable Vasquez, Rishi Primary Care Unavailable Irene, Patel Consulting Unavailable Ke, Broderick Attending Unavailable White, Maddie L Admitting Unavailable White, Maddie L Referring Unavailable Vasquez, Rishi Primary Care Unavailable Tanphaichitr, Natthavat Consulting Unavaila ble Alexandria, Russell Consulting Unavailable White, Maddie L Consulting Unavailable Kelly, Kwaku Consulting Unavailable Vasquez, Rishi Primary Care Unavailable Vasquez, Rishi Attending Unavailable Vasquez, Rishi Referring Unavailable Vasquez, Rishi Referring Unavailable Vasquez, Rishi Primary Care Unavailable Vasquez, Rishi Attending Unavailable Vasquez, Rishi Attending Unavailable Vasquez, Rishi Primary Care Unavailable Vasquez, Rishi Referring Unavailable Vasquez, Rishi Referring Unavailable Vasquez, Rishi Primary Care Unavailable Vasquez, Rishi Attending Unavailable Vasquez, Rishi Primary Care Unavailable Vasquez, Rsihi Attending Unavailable Vasquez, Rishi Referring Unavailable Vasquez, Rishi Primary Care Unavailable Irene, Patel Attending Unavailable Ciaran Berry Referring Unavailable Ciaran Berry Attending Unavailable Vasquez, Rishi Primary Care Unavailable Curtis Franco Attending Unavailable Prayson, Curtis Referring Unavailable Vasquez, Rishi Primary Care Unavailable Vasquez, Rishi Primary Care Unavailable Servando, Phong Chi Attending Unavailable Servando, Phong Chi Referring Unavailable Fiore, Abena Referring Unavailable Fiore, Abena Attending Unavailable Vasquez, Rishi Primary Care Unavailable Vasquez, Rishi Primary Care Unavailable Prayson, Curtis Referring Unavailable PraktonDonCurtis Attending Unavailable Brandon Membreno Referring Unavailable Vasquez, Rishi Primary Care Unavailable Brandon Membreno Attending Unavailable Vasquez, Rishi Referring Unavailable Vasquez, Rishi Primary Care Unavailable Vasquez, Rishi Attending Unavailable Vasquez, Rishi Primary Care Unavailable Vasquez, Rishi Attending Unavailable Vasquez, Rishi Referring Unavailable Russell Clement Attending Unavailable Russell Clement Referring Unavailable Russell Clement Consulting Unavailable Vasquez, Rishi Primary Care Unavailable Patel Irene Referring Unavailable Vasquez, Rishi Primary Care Unavailable Patel Irene Attending Unavailable Russell Clement Attending Unavailable Neo Lockwood Consulting Unavailable Carlos Cota Consulting Unavailable Avinash Cervantes Consulting Unavailable Jacinto Tamez Consulting Unavailable Christos Beard Consulting Unavailable Santos Knox Consulting Unavailable Mando Lopez Consulting Unavailable Shanae Lang Consulting UnavailJason Resendez Consulting Unavailable Jeb Park Consulting Unavailable Gian Orozco Consulting Unavailable Vida Day Consulting Unavailable AlQuincy nam Consulting Unavailable Villalobos, Zaira Consulting Unavailable Yomi, Jabier Consulting Unavailable IrSanjuana huffmanan Consulting Unavailable Elisabeth, Jonathan Consulting Unavailable Dhesi, Lavell Consulting Unavailable Caren Rodriguez Consulting Unavailable Kee Cast Consulting Unavailable Andrew Patel Consulting Unavailable Zachary, Refugio Consulting Unavailable Washington Flores Consulting Unavailable Michaela Joshua Consulting Unavailable Kwaku Mendoza Consulting Unavailable Macarena Abena Attending Unavailable Vasquez, Rishi Primary Care Unavailable Servando, Phong Chi Admitting Unavailable Servando, Phong Chi Referring Unavailable Irene, Patel Consulting Unavailable Fiore, Abena Consulting Unavailable Servando, Phong Chi Consulting Unavailable Urbano Russell Attending Unavailable Vasquez, Rishi Primary Care Unavailable Fiore, Abena Referring Unavailable Brandon Membreno Referring Unavailable Urbano, Russell Attending Unavailable Vasquez, Rishi Primary Care Unavailable White, Maddie L Admitting Unavailable White, Maddie L Referring Unavailable White, Maddie L Consulting Unavailable White, Maddie L Attending Unavailable Vasquez, Rishi Primary Care Unavailable Teto Patel Consulting Unavailable Ke, Broderick Attending Unavailable Tanphaichitr, Natthavat Consulting Unavaila ble Alexandria, Russell Consulting Unavailable White, Maddie L Attending Unavailable Alexandria, Russell Attending Unavailable Kb, Jarret Attending Unavailable Kb, Jarret Referring Unavailable Kb, Jarret Consulting Unavailable Vasquez, Rishi Primary Care Unavailable Kwaku Mendoza Consulting Unavailable Ke, Broderick Consulting Unavailable Fiore, Abena Attending Unavailable Jacinto Tamez Attending Unavailable FioreAbena Attending Unavailable Vasquez, Rishi Referring Unavailable Vasquez, Rishi Primary Care Unavailable Vasquez, Rishi Referring Unavailable Roof Rick BARAJAS Attending Unavailable Vasquez, Rishi Primary Care Unavailable Abena Fiore Attending Unavailable Vasquez, Rishi Referring Unavailable Vasquez, [...] Primary Care Unavailable Vasquez, Rishi Referring Unavailable Urbano, Russell Attending Unavailable Urbano, Russell Admitting Unavailable Vasquez, Rishi Primary Care Unavailable Kwaku Mendoza Consulting Unavailable Vasquez, Rishi Primary Care Unavailable Servando, Phong Chi Attending Unavailable Servando, Phong Chi Admitting Unavailable Servando, Phong Chi Referring Unavailable Irene, Patel Consulting Unavailable Fiore, Abena Consulting Unavailable Ciaran Renee Referring Unavailable Vasquez, Rishi Primary Care Unavailable Ciaran Renee Attending Unavailable Kb, Jarret Attending Unavailable Kb, Jarret Referring Unavailable Vasquez, Rishi Primary Care Unavailable Brandon Membreno Referring Unavailable Brandon Membreno Attending Unavailable Vasquez, Rishi Primary Care Unavailable Vasquez, Rishi Primary Care Unavailable Rishi Vasquez Attending Unavailable Rishi Vasquez Referring Unavailable Fabián LUNDBERG, Dr. Larson Other Provider Beata LUNDBERG, Dr. Gonzalez Other Provider Billy LUNDBERG, Dr. Da Silva Other Provider [phone] Dashawn EUCEDA, Dr. Casey Other Provider Kisha LUNDBERG, Dr. Christos Correa Other Provider [phone] Abilio LUNDBERG, Dr. Graham Other Provider [phone] Jessica LUNDBERG, Dr. Gilmore Other Provider Rickey LUNDBERG, Dr. Jolly Other Provider [phone] Adan LUNDBERG, Dr. Gomez Other Provider Xavier LUNDBERG, Dr. Russ Other Provider [phone] Ernesto LUNDBERG, Dr. Springer Other Provider [phone] Barb LUNDBERG, Dr. Mcpherson Other Provider Adal LUNDBERG, Dr. Mathew Other Provider Unavailabl e Griselda LUNDBERG, Dr. Meneses Other Provider [phone] Yomi LUNDBERG, Dr. Eugene Other Provider [phone] Lyric LUNDBERG, Dr. Velazquez Other Provider Elisabeth LUNDBERG, Dr. Castillo Other Provider Dr. Lavell Rodriges DO Other Provider Dr. Caren Rodriguez MD Other Provider [phone] Segun LUNDBERG, Dr. Sweet Other Provider Dr. Andrew Patel DO Other Provider Zachary LUNDBERG, Dr. Huff Other Provider Mark LUNDBERG, Dr. Delarosa Other Provider Allergies Allergy Classification Reported Allergen(s) Allergy Type Date of Onset Reaction(s) Facility Sulfonamides (antibiotic) (1 source) Sulfonamides (Antibiotic) Drug Allergy 3 Unknown [facility] (10 sources) Sulfonamides (Antibiotic) drug allergy 4 [facility] Work Phone: (20 sources) Sulfonamides (Antibiotic); Translations: [SULFA (SULFONAMIDE ANTIBIOTICS)] Drug Allergy 3 Unknown [facility] (20 sources) Sulfonamides (Antibiotic) Allergy to substance [address] [facility] Comment on above: doesn't remember/ al lergy noted as a child (1 source) Sulfonamides (Antibiotic) Drug allergy (disorder) [address] [facility] Repository Medications Current Medications Medication Drug Class(es) Dates Sig (Normalized) Sig (Original) 8 hr acetaminophen 650 mg extended release oral tablet (20 sources) Start: 05-08-2025 Start: 03-17-2025 take 2 tablets by mo uth every six hours as needed for pain [...] TYLENOL CAPS a s needed ACETAMINOPHEN CAPS [id number] Kwaku Moscoso MD Start: 09-22-2016 End: 11-22-2016 TYLENOL CAPS as needed 09/22 ACETAMINOPHEN CAPS [id number] Espinoza Burns MA Start: 09-22-2016 TYLENOL CAPS a s needed ACETAMINOPHEN CAPS [id number] Espinoza Burns MA Start: 09-22-2016 End: 11-22-2016 TYLENOL CAPS as needed 09/22 ACETAMINOPHEN CAPS [id number] Espinoza Burns MA Start: 09-22-2016 TYLENOL CAPS a s needed ACETAMINOPHEN CAPS [id number] Espinoza Burns MA take 2 tablets by mo [facility] every six hours as needed acetaminophen (TYLENOL) 325 mg tablet Take 650 mg by mouth every 6 hours as needed. Active Comment on above: Take 650 mg by mouth every 6 hours as needed. ascorbic acid 500 mg oral tablet (20 [...] Comment on above: Take 1 tablet by wei once daily. aspirin 81 mg delayed releas e oral tablet (20 sources) Platelet Aggregation Inhibitor, Nonsteroidal Anti-inflammatory Drug Start: 01-05-2014 Start: 01-05-2014 take 1 tablet by wei once daily ASPIRIN 81 MG TABS One tablet by mouth daily ASPIRIN [id number] Carole Garber RN Start: 06-30-2013 take 1 tablet by wei once daily at mealtime Aspirin 81 mg Tab Take 1 tablet by mouth once daily. Take with food. 30 tablet 11 06/30/2013 Active Comment on above: Take 1 tablet by wei once daily. Take with food. Blood Pressure [...] Comment on above: Take 1 capsule by [facility] twice daily for 7 days. collagenase 0.25 unt/mg topical ointment (1 source) Collagen-specific Enzyme Start: 5 ferrous sulfate 325 mg oral tablet (20 sources) Start: 8 take 1 tablet by mouth once daily Ferrous Sulfate 325 MG tablet Active 325 mg PO DAILY August 15, 2018 12:00am Start: 08-30-2017 take 1 tablet by wei th twice daily FERROUS SULFATE 325 (65 Fe) MG TABS One tablet by mouth twice daily FERROUS SULFATE [id number] Kwaku Moscoso MD Comment on above: Take 325 mg by mouth daily with breakfast. glimepiride 2 mg oral tablet (20 sources) Sulfonylurea Start: 05-18-2025 Start: 03-07-2025 End: 05-07-2025 Start: 03-24-2024 End: 06-04-2024 take 1 tablet by mouth once daily at breakfast glimepiride (AMARYL) 4 mg tablet Take 1 tablet by mouth daily with breakfast. 90 tablet 3 06/04/2024 Active Start: 01-22-2023 End: 03-22-2024 take 1 tablet by mouth once daily at breakfast glimepiride (AMARYL) 4 mg tablet Take 1 tablet by mouth daily with breakfast. 30 tablet 11 01/22/2023 03/22/2024 Discontinued Start: 01-13-2014 End: 03-07-2025 Start: 01-13-2014 End: 03-07-2025 Start: 01-05-2014 End: 03-07-2025 take 2 tablets by mouth once daily Glimepiride 2 mg tablet Discontinued 4 mg PO DAILY April 20, 2023 8:54am March 07, 2025 4:02pm Comment on above: Take 1 tablet by wei th twice daily with meals. Take 1 tablet by wei th daily with breakfast. lactobacillus acidophilus 600 mg oral capsule (8 sources) Start: 5 take 1 capsule by mouth once daily Lactobacillus Acidophilus (Acidophilus) capsule Active 600 mg PO daily March 07, 2025 12:00am Lactobacillus Combination No.9 (Adult 50 Plus Probiotic) 4 billion cell capsule (20 sources) Start: 0 take 4 capsules by mouth once daily [...] 05, 2020 1:00am administer with a meal linezolid 600 mg oral tablet (20 sources) Oxazolidinone Antibacterial Start: 05-21-2025 Start: 01-08-2017 End: 07-29-2018 Ogefrsrd-Komq-Dcy-Folic Acid 18-0.4 mg tab (20 sources) Start: 03-02-2014 take 1 tablet by mouth once daily Jhwpveva-Wiom-Dnm-Folic Acid 18-0.4 mg tab Take 1 tablet by mouth once daily. 03/02/2014 Active Start: 03-02-2014 take 1 tablet by wei th once daily Njbwnndf-Dcyo-Uba-Folic Acid 18-0.4 mg t ab Take 1 tablet by mouth once daily. 0 03/02/2014 Active Comment on above: Take 1 tablet by wei th once daily. Multivitamin With Folic Acid (20 sources) Start: 01-13-2014 take 1 tablet by mouth once daily Multivitamin With Folic Acid Active 1 TABLET PO DAILY January 13, 2014 10:51am Start: 01-13-2014 take 1 tablet by wei th once daily Multivitamin With Folic Acid Active 1 TABLET PO DAILY January 13, 2014 12:00am Start: 01-13-2014 take 1 tablet by wei th once daily Multivitamin With Folic Acid [...] above: Take 1 capsule by mo uth twice daily with meals for 7 days. nystatin 100 unt/mg topical powder (18 sources) Polyene Antifungal Start: 03-17-2025 End: 05-07-2025 [...] 1 capsule by mo uth once daily. [place]-3 Fatty Acids-Fish Oil (20 sources) Start: 06-29-2016 [place]-3 Fatty Acids-Fish Oil Active 1 EACH PO DAILY June 29, 2016 1:08pm Start: 06-29-2016 [place]-3 Fatty Acids-Fish Oil Active 1 EACH PO DAILY June 28, 2016 11:00pm Start: 06-29-2016 [place]-3 Fatty Acids-Fish Oil Active 1 EACH PO DAILY June 29, 2016 12:00am [place]-3 Fatty Acids-Fish Oil 1 EACH capsule (11 sources) Start: 06-29-2016 [place]-3 Fatty Acids-Fish Oil 1 EACH capsule Active 1 NMA PO DAILY June 29, 2016 12:00am pregabalin 100 mg oral capsule (12 sources) Start: 03-07-2025 Saccharomyces boulardii (20 sources) [...] 03-23-2025 Start: 03-23-2025 take 1 tablet by wei th at bedtime Simvastatin 20 mg tablet Active 20 mg PO AT BEDTIME March 23, 2025 4:13pm Start: 01-22-2015 End: 03-23-2025 Comment on above: Take 1 tablet by wei th daily at bedtime. (20 sources) Start: 03-07-2025 Start: 10-05-2020 End: 03-07-2025 [...] 03, 2017 12:00am July 29, 2018 11:17am amLODIPine 5 mg oral tablet (20 sources) [...] 06-04-2024 Start: 01-05-2014 take 1 tablet by wei th once daily NORVASC 10 MG TABS One tablet by mouth daily AMLODIPINE BESYLATE [id number] Ira Lopez PA-C Comment on above: Take 1 tablet by wei th once daily. ascorbic acid 226 mg / cuprous oxide 0.8 mg / dl-alpha tocopheryl acetate 200 unt / lutein 5 mg / zinc oxide 34.8 mg oral capsule (20 sources) Vitamin C Start: 07-29-2021 End: 03-07-2025 calcium (2 sources) Phosphate Binder, Calcium Start: 08-30-2017 take 1 tablet by mouth twice daily CALCIUM 600 MG TABS One tablet by mouth twice daily CALCIUM [id number] Kwaku Moscoso MD calcium ascorbate 500 mg [...] MG SOLR q 12 hrs CEFTAROLINE FOSAMIL [id number] Shaina Serna LPN ceftaroline fosamil 600 mg injection (20 sources) Start: 11-15-2016 End: 07-23-2018 End: 01-04-2017 TEFLARO 400 MG SOLR q 12 hrs CEFTAROLINE FOSAMIL [id number] Espinoza Burns MA cholecalciferol 0.05 mg oral capsule (20 sources) Vitamin D Start: 05-20-2020 End: 03-07-2025 Start: 05-20-2020 End: 03-07-2025 take 1 capsule by mouth once daily Cholecalciferol (Vitamin D3) 50 mcg (2,000 unit) capsule Discontinued 2000 U PO DAILY August 08, 2022 9:41am March 07, 2025 4:02pm take 1 capsule by mo uth once daily Cholecalciferol, Vitamin D3, 25 mcg [...] One tablet by mouth daily CLOPIDOGREL BISULFATE [id number] Brandon Ch MD Comment on above: Take 75 mg by mouth once daily. clotrimazole 10 mg oral lozenge (20 sources) Azole Antifungal Start: 09-20-2016 End: 11-22-2016 CLOTRIMAZOLE 10 MG LOZG 1 tab 5 x a day CLOTRIMAZOLE [id number] Espinoza Burns MA Cranberry Extract (20 sources) Non-Standardized Food Allergenic Extract, Non-Standardized Plant Allergenic Extract Start: 08-08-2022 End: 05-18-2025 Start: 08-08-2022 Start: 08-08-2022 take 1 capsule by mo [...] CRANBERRY CAPS Cranberry Extract daily CRANBERRY CAPS [id number] Brandon Ch MD Start: 11-25-2014 Cranberry Extr act 300 mg tab Take by mouth. 0 11/25/2014 Active Comment on above: Take by mouth. DOCUSATE SODIUM CAPS (10 sources) Histamine-1 Receptor Antagonist, Nonsteroidal Anti-inflammatory Drug Start: 09-22-2016 STOOL SOFTENER CAPS twice daily DOCUSATE SODIUM CAPS [id number] Espinoza S Grant ALFONSO Start: 09-22-2016 End: 11-22-2016 STOOL SOFTENER CAPS twice da nhi DOCUSATE SODIUM CAPS [id number] Espinoza S Grant ALFONSO Start: 09-22-2016 STOOL SOFTENER CAPS twice daily DOCUSATE SODIUM CAPS [id number] Espinoza S Grant ALFONSO Start: 09-22-2016 End: 11-22-2016 STOOL SOFTENER CAPS twice da nhi DOCUSATE SODIUM CAPS [id number] Espinoza S Grant ALFONSO docusate sodium 100 mg oral capsule (20 [...] SOFTENER CAPS twice daily DOCUSATE SODIUM CAPS [id number] Espinoza S Grant ALFONSO Start: 09-22-2016 STOOL SOFTENER CAPS twice daily DOCUSATE SODIUM CAPS [id number] Espinoza S Grant ALFONSO doxycycline monohydrate 100 mg oral capsule (20 sources) Tetracycline-class Drug Start: 03-11-2025 End: 05-07-2025 Start: 01-02-2025 End: 03-11-2025 Start: 02-14-2017 End: 06-11-2017 take 1 tablet by mouth twice daily DOXYCYCLINE HYCLATE 100 MG CAPS One tablet by mouth twice daily DOXYCYCLINE HYCLATE [id number] Marly Patino MD estradiol 0.1 mg/ml vaginal [...] MG /GM CREA Take as directed ESTRADIOL [id number] Brandon Ch MD Start: 05-25-2015 ESTRACE 0.1 MG /GM CREA Take as directed ESTRADIOL [id number] Brandon Ch MD Comment on above: Use 1 g vaginally tw ice a week. Use 1 g vaginally tw o times a week. fish oil (5 sources) Start: 09-20-2016 take 1 tablet by mouth once daily OMEGA-3 FISH OIL 300 MG CAPS One tablet by mouth daily OMEGA-3 FATTY ACIDS [id number] Meka Jones Start: 09-20-2016 take 1 tablet by wei th once daily OMEGA-3 FISH OIL 300 MG CAPS One tablet by mouth daily OMEGA-3 FATTY ACIDS [id number] Meka Jones gabapentin 600 mg oral table t (20 sources) Anti-epileptic Agent Start: 12-08-2021 End: 03-07-2025 Start: 01-05-2014 End: 08-08-2022 Comment on above: Take 1 tablet by wei th three times daily for 30 days. TAKE 1 TABLET BY WEI TH THREE TIMES DAILY Take 1 tablet by wei th three times a day for 120 days. glipiZIDE er 5 mg 24 hr extended release oral tablet (13 sources) Sulfonylurea Start: End: take 1 tablet [...] 04/30/2025 04/30/2025 Discontinued Start: 04-10-2025 End: 10-07-2025 hydroCHLOROthiazide 25 mg or al tablet (20 sources) Thiazide Diuretic Start: 09-22-2016 End: 03-27-2025 Start: 01-05-2014 End: 09-20-2016 Start: 01-05-2014 take 2 tablets by mo [facility] once daily HYDROCHLOROTHIAZIDE 12.5 MG TABS Two tablets by mouth daily HYDROCHLOROTHIAZIDE [id number] Carole Garber RN Comment on above: Take 1 tablet by wei once daily. 3 ml insulin lispro 100 unt/ml pen injector (11 sources) Insulin Analog Start: 5 End: 5 LACTOBACILLUS CAPS (2 sources) Start: 7 take 1 tablet by mouth once daily ACIDOPHILUS CAPS 600 mg. One tablet by mouth daily LACTOBACILLUS CAPS [id number] Kwaku Moscoso MD LACTOBACILLUS CAPS (20 sources) Start: 6 ACIDOPHILUS/PECTIN CAPS 1 tab every night LACTOBACILLUS CAPS [id number] Meka Jones Start: 09-20-2016 End: 11-22-2016 ACIDOPHILUS/PECTIN CAPS 1 ta b every night LACTOBACILLUS CAPS [id number] Espinoza Burns MA Start: 09-20-2016 End: 11-22-2016 ACIDOPHILUS/PECTIN CAPS 1 ta b every night LACTOBACILLUS CAPS [id number] Espinoza Burns MA Start: 09-20-2016 ACIDOPHILUS/PE CTIN CAPS 1 tab every night LACTOBACILLUS CAPS [id number] Meka Stallings Robert Start: 07-11-2016 End: 08-31-2016 Start: 07-11-2016 End: 08-31-2016 take 1 tablet by mouth twice daily Acidophilus-Pectin, [place] 1 EACH tablet Discontinued 1 NMA PO TWICE A DAY July 11, 2016 12:00am August 31, 2016 5:49pm Start: 07-11-2016 End: 08-31-2016 Acidophilus-Pectin, Hatley D iscontinued 1 EACH PO TWICE A DAY July 11, 2016 12:00am August 31, 2016 5:49pm levoFLOXacin 500 mg oral tab let (20 sources) Quinolone Antimicrobial Start: 06-29-2016 End: 09-05-2016 lisinopril 20 mg oral tablet (20 sources) Angiotensin Converting Enzyme Inhibitor Start: 12-05-2023 End: 03-27-2025 Start: 12-05-2022 take 1 tablet by wei th once daily lisinopril (ZESTRIL, PRINIVIL) 20 mg tablet Take 1 tablet by mouth once daily. 90 tablet 3 12/05/2022 Active Start: 01-05-2014 End: 03-07-2025 Comment on above: Take 1 tablet by wei th once daily. metFORMIN hydrochloride 500 mg oral tablet (20 sources) Biguanide Start: 07-29-2018 End: 03-11-2025 Start: 07-29-2018 End: 06-29-2022 take 1 tablet by mouth once daily Metformin 500 mg tablet Discontinued 500 mg PO DAILY October 05, 2020 1:00am June 29, 2022 9:37am Start: 01-05-2014 take 1 tablet by wei th twice daily METFORMIN HCL 500 MG TABS One tablet by mouth twice daily METFORMIN HCL [id number] Kwaku Moscoso MD Start: 01-05-2014 End: 07-29-2018 Comment on above: Take 1 tablet by wei twice daily with meals. Take 1 tablet by wei th daily with breakfast. 24 hr metoprolol succinate 2 5 mg [...] 9:21pm Start: 01-12-2014 take 1 tablet by wei once daily TOPROL XL 50 MG [id number] (ER) One tablet by mouth daily METOPROLOL SUCCINATE [id number] Brandon Ch MD Start: 01-05-2014 take 1 tablet by wei once daily METOPROLOL SUCCINATE ER 25 MG [id number] One tablet by mouth daily METOPROLOL SUCCINATE [id number] Carole Garber RN Comment on above: Take 1 tablet by wei once daily. metroNIDAZOLE 500 mg oral tablet (20 sources) Nitroimidazole Antimicrobial Start: 03-11-20 End: 05-07-20 MULTIPLE VITAMIN (10 sources) Start: 01-05-20 take 1 tablet by mouth once daily MULTIVITAMINS TABS One tablet by mouth daily MULTIPLE VITAMIN Carole Garber RN Start: 01-05-2014 take 1 tablet by wei th once daily MULTIVITAMINS TABS One tablet by mouth daily MULTIPLE VITAMIN Carole Garber RN Agdscleh-Zfjt-Mya-Folic Acid (CENTRUM COMPLETE) 18-0.4 mg tab (12 sources) Start: 03-02-2014 take 1 tablet by mouth once daily Vuvtaleb-Klrb-Siq-Folic Acid (CENTRUM COMPLETE) 18-0.4 mg tab Take 1 tablet by mouth once daily. 0 03/02/2014 Active Comment on above: Take 1 tablet by wei th once daily. naproxen sodium 220 mg oral tablet (20 sources) Nonsteroidal Anti-inflammat ory Drug Start: 01-05-2014 End: 12-29-2014 ALEVE 220 MG TABS as needed NAPROXEN SODIUM [id number] Carole Garber RN nitroglycerin 0.4 mg sublingual tablet (10 sources) Nitrate Vasodilator Start: 01-05-2014 NITROSTAT 0.4 MG SUBL 1 tablet under tongue every 5 min up to 3 X NITROGLYCERIN [id number] Carole Garber RN OMEGA-3 FATTY ACIDS (5 sources) Start: 09-20-2016 take 1 tablet by mouth once daily OMEGA-3 FISH OIL 300 MG CAPS One tablet by mouth daily OMEGA-3 FATTY ACIDS [id number] Meka Jones polysaccharide iron complex 150 mg oral capsule (12 sources) Start: 09-20-2016 End: 08-30-2017 take 1 tablet by mouth once daily FERREX 150 150 MG CAPS One tablet by mouth daily POLYSACCHARIDE IRON COMPLEX [id number] Kwaku Moscoso MD Start: 09-20-2016 take 1 tablet by wei th once daily FERREX 150 150 MG CAPS One tablet by mouth daily POLYSACCHARIDE IRON COMPLEX [id number] Meka Jones pravastatin sodium 20 mg oral tablet (20 sources) HMG-CoA Reductase Inhibitor Start: 01-05-2014 End: 01-22-2015 take 1 tablet by mouth once daily PRAVASTATIN SODIUM 20 MG TABS One tablet by mouth daily PRAVASTATIN SODIUM [id number] Carole Garber RN senokot-s (2 sources) Start: 08-30-2017 take 1 tablet by mouth twice daily STOOL SOFTENER 100 MG TABS One tablet by mouth twice daily DOCUSATE SODIUM [id number] Kwaku Moscoso MD vancomycin 50 mg/ml injectable solution (20 sources) Glycopeptide Antibacterial Start: 09-20-2016 End: 11-22-2016 take 1000 mg intravenous route every twenty-four hours VANCOMYCIN HCL 1000 MG SOLR IV Q24 hours for 38 days VANCOMYCIN HCL [id number] Meka Jones Problems Active Problems Problem Classification [...] whether stage 3a or 3b CKD ([facility])] Onset: 7 Chronic ulcer of skin (20 [...] disease (20 sources) Atherosclerotic heart disease of [place] coronary artery without angina pectoris; Translations: [Coronary [...] 8 02-25-2018 Episodic Deficiency and other anemia (20 sources) Iron deficiency anemia; Translations: [Iron deficiency [...] morning it was 109/55 CONTROLLED WITH MED Fluid and electrolyte disorders (3 sources) Dehydration; Translations: [Dehydration] 05-18-2025 Episodic Gangrene (20 sources) Atherosclerosis of artery of lower limb; Translations: [Atherosclerosis of [place] arteries of extremities with gangrene, bilateral legs] Onset: 5 03-19-2025 Chronic Gangrene (20 sources) Gangrenous disorder; Translations: [Gangrene, not elsewhere classified] 03-17-2025 Episodic Gastrointestinal hemorrhage (20 sources) Gastrointestinal hemorrhage; Translations: [Gastrointestinal hemorrhage, unspecified] [...] sources) Repeated falls; Translations: [Falling episodes] Onset: Episodic Other connective tissue disease (1 source) Rhabdomyolysis; Translations: [Rhabdomyolysis] Onset: Episodic Other injuries and conditions due to [...] Onset: 3 12-29-2014 Chronic Comment on above: [employer] WORK[employer]-Right SFA and Po pliteal Artery 2013PTA-Left SFA 2013 Residual codes; unclassified (2 sources) Other specified postprocedural states; Translations: [Other specified postprocedural states] Onset: 5 Episodic Respiratory failure; insufficiency; arrest (adult) (5 sources) Acute respiratory failure; Translations: [Acute respiratory failure with hypoxia] Onset: 5 05-18-2025 Episodic Septicemia (except in labor) (5 sources) Sepsis; Translations: [Sepsis, unspecified organism] Onset: 5 05-18-2025 Episodic Skin and subcutaneous tissue infections (20 [...] Onset: 5 06-04-2024 Chronic Superficial injury; contusion (20 sources) Contusion of hip; Translations: [Contusion of left hip, initial encounter] 03-07-2025 Episodic Thyroid disorders (20 sources) Multinodular goiter; 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 Anion gap in Serum or Plasma Ordered By: Michaela Joshua on 05-21-2025 Anion gap [Moles/Vol] 10 mmol/L 5-15 [facility] Automated lymphocyte count a s percentage of total leukocytesOrdered By: Michaela Joshua on 05-21-2025 Lymphocytes/100 WBC Auto (Unsp spec) 17.7 % Low 19-[address] [facility] BUN/creatinine ratioOrdered By: Michaela Joshua on 05-21-2025 Urea nitrogen/Creatinine [Mass ratio] 37.7 mg/mg High 10-[address] [facility] Basophil percentageOrdered B y: Michaela Joshua on 05-21-2025 Basophils/100 WBC (Bld) 0.4 % 0-[address] [facility] Carbon dioxide, total [Moles /volume] in Central venous bloodOrdered By: Michaela Joshua on 05-21-2025 CO2 [Moles/Vol] 20.9 mmol/L Low 21.0-32.[address] [facility] Chloride assayOrdered By: Arti Joshua on 05-21-2025 Chloride [Moles/Vol] 107 mmol/L 98-108 [facility] Eosinophil percentageOrdered By: Michaela Joshua on 05-21-2025 Eosinophils/100 WBC (Bld) 2.6 % 0-[address] [facility] Erythrocyte distribution wid th ratioOrdered By: Michaela Joshua on 05-21-2025 Erythrocyte distribution width (RBC) [Ratio] 15.9 % High 11.6-14.[address] [facility] Erythrocyte distribution wid th standard deviationOrdered By: Michaela Joshua on 05-21-2025 Erythrocyte distribution width (RBC) [Ratio] 53.0 fl High 35.1-43.[address] [facility] Glomerular filtration rate ( GFR) estimation/1.73 sq m using serum, plasma, or whole bOrdered By: Michaela Joshua on 05-21-2025 GFR/1.73 sq M.predicted among non-blacks MDRD (S/P/Bld) [Vol rate/Area] 41 mL/min/{1.73_m2} Low >[address] [facility] deOrdered By: Michaela Joshua on 05-21-2025 Glucose [Mass/Vol] 335 mg/dL High 74-106 [facility] Hematocrit Auto (Bld) [Volum e fraction]Ordered By: Michaela Joshua on 05-21-2025 Hematocrit (Bld) [Volume fraction] 25.4 % Low 37-[address] [facility] Hemoglobin measurementOrdere d By: Michaela Joshua on 05-21-2025 Hemoglobin (Bld) [Mass/Vol] 8.0 g/dL Low 12.0-15.[address] [facility] Immature granulocytes/100 WB C Auto (Bld)Ordered By: Michaela Joshua on 05-21-2025 Immature granulocytes/100 WBC (Bld) 0.900 % 0.0-0.[address] [facility] MCV (mean corpuscular volume ) determinationOrdered By: Michaela Joshua on 05-21-2025 MCV (RBC) [Entitic vol] 90.1 fL 81-[address] [facility] Mean corpuscular hemoglobin (MCH) determinationOrdered By: Michaela Joshua on 05-21-2025 MCH (RBC) [Entitic mass] 28.4 pg 27.0-32.[address] [facility] Monocyte percentageOrdered B y: Michaela Joshua on 05-21-2025 Monocytes/100 WBC (Bld) 13.6 % High 0-[address] [facility] Neutrophil percentageOrdered By: Michaela Joshua on 05-21-2025 Neutrophils/100 WBC (Bld) 64.8 % 47-[address] [facility] Platelet countOrdered By: Arti Joshua on 05-21-2025 Platelets (Bld) [#/Vol] 167 10*3/uL 150-[address] [facility] Potassium measurement (mass/ volume)Ordered By: Michaela Joshua on 05-21-2025 Potassium (Unsp spec) [Mass/Vol] 4.3 mmol/L 3.3-5.[address] [facility] RBC Auto (Bld) [#/Vol]Ordere d By: Michaela Joshua on 05-21-2025 RBC (Bld) [#/Vol] 2.82 10*6/uL Low 4.2-5.4 [facility] Serum creatinine measurement (mass/volume)Ordered By: Michaela Joshua on 05-21-2025 Creatinine [Mass/Vol] 1.37 mg/dL High 0.70-1.20 [facility] Serum glucose measurement (m ass/volume)Ordered By: Michaela Joshua on 05-21-2025 Glucose [Mass/Vol] 192 mg/dL High 70-99 [facility] Serum or plasma calcium natalia urement (mass/volume)Ordered By: Michaela Joshua on 05-21-2025 Calcium [Mass/Vol] 8.9 mg/dL 7.6-11.0 [facility] Serum or plasma urea nitroge n measurement (mass/volume)Ordered By: Michaela Joshua on 05-21-2025 Urea nitrogen [Mass/Vol] 52 mg/dL High 4-[address] [facility] Sodium levelOrdered By: Yuliana Joshua on 05-21-2025 Sodium [Moles/Vol] 138 mmol/L 133-145 [facility] White blood cell (WBC) count Ordered By: Michaela Joshua on 05-21-2025 WBC (Bld) [#/Vol] 4.6 10*3/uL 4.4-11.0 [facility] Basic Metabolic Profile (BMP )on 05-20-2025 BUN/CRE 38.6 RATIO High 10-[address] [facility] Comment on above: Performed By: #### L 100.0100, L500.2500 ####[facility] [address] [place], [address] Calcium [Mass/Vol] 8.8 mg/dL Normal 7.6-11.0 [facility] Comment on above: Performed By: #### L 100.0100, L500.2500 ####[facility] [address] [place], [address] Chloride [Moles/Vol] 107 mmol/L Normal 98-108 [facility] Comment on above: Performed By: #### L 100.0100, L500.2500 ####[facility] [address] [place], [address] CO2 [Moles/Vol] 18.3 mmol/L Low 21.0-32.[address] [facility] Comment on above: Performed By: #### L 100.0100, L500.2500 ####[facility] [address] [place], [address] Creatinine [Mass/Vol] 1.49 mg/dL High 0.70-1.20 [facility] Comment on above: Performed By: #### L 100.0100, L500.2500 ####[facility] [address] [place], [address] ECRCL 34.43 ml/min Low 50-[address] [facility] Comment on above: Performed By: #### L 100.0100, L500.2500 ####[facility] [address] [place], [address] GAP 12 Normal 5-[address] [facility] Comment on above: Performed By: #### L 100.0100, L500.2500 ####[facility] [address] [place], [address] GFR/1.73 sq M.predicted among non-blacks MDRD (S/P/Bld) [Vol rate/Area] 37 mL/min/{1.73_m2} Low >[address] [facility] Comment on above: Result Comment: mL/m in/1.73m2 CKD-EPI Creatinine Equation (2020) Performed By: #### L 100.0100, L500.2500 ####[facility] [address] [place], [address] Glucose [Mass/Vol] 143 mg/dL High 70-99 [facility] Comment on above: Performed By: #### L 100.0100, L500.2500 ####[facility] [address] [place], [address] Potassium [Moles/Vol] 4.0 mmol/L Normal 3.3-5.1 [facility] Comment on above: Performed By: #### L 100.0100, L500.2500 ####[facility] [address] [place], [address] Sodium [Moles/Vol] 138 mmol/L Normal 133-145 [facility] Comment on above: Performed By: #### L 100.0100, L500.2500 ####[facility] [address] [place], [address] Urea nitrogen [Mass/Vol] 58 mg/dL High 4-[address] [facility] Comment on above: Performed By: #### L 100.0100, L500.2500 ####[facility] [address] [place], [address] Bedside Glucoseon 05-20-2025 FINGERSTICK GLU 133 mg/dL High 74-[address] [facility] Comment on above: Result Comment: JEREMIAS GEMENT OF PATIENT CARE PER NURSING PROTOCOL Performed By: #### L 501.080 ####[facility] [address] [place], [address] FINGERSTICK GLU 143 mg/dL High 74-[address] [facility] Comment on above: Result Comment: JEREMIAS GEMENT OF PATIENT CARE PER NURSING PROTOCOL Performed By: #### L 501.080 ####[facility] [address] [place], [address] CBC W/Diff, Automatedon 07-0 2-2025 Absolute Lymph 0.68 X10 3/uL Low 0.83-4.[address] [facility] Comment on above: Performed By: #### L 100.0100, L500.2500 ####[facility] [address] [place], [address] Absolute Neut 3.7 X10 3/uL Normal 2.0-7.[address] [facility] Comment on above: Performed By: #### L 100.0100, L500.2500 ####[facility] [address] [place], [address] Basophils/100 WBC (Bld) 0.6 % Normal 0-[address] [facility] Comment on above: Performed By: #### L 100.0100, L500.2500 ####[facility] [address] [place], [address] Eosinophils/100 WBC (Bld) 2.6 % Normal 0-[address] [facility] Comment on above: Performed By: #### L 100.0100, L500.2500 ####[facility] [address] [place], [address] Erythrocyte distribution width (RBC) [Ratio] 15.8 % High 11.6-14.[address] [facility] Comment on above: Performed By: #### L 100.0100, L500.2500 ####[facility] [address] [place], [address] Hematocrit (Bld) [Volume fraction] 27.2 % Low 37-[address] [facility] Comment on above: Performed By: #### L 100.0100, L500.2500 ####[facility] [address] [place], [address] Hemoglobin (Bld) [Mass/Vol] 8.9 g/dL Low 12.0-15.[address] [facility] Comment on above: Performed By: #### L 100.0100, L500.2500 ####[facility] [address] [place], [address] IG% 0.600 Normal 0.0-0.[address] [facility] Comment on above: Result Comment: IG% - Immature Granulocytes (promyelocytes, myelocytes andmetamyelocytes) > 1% indicates that a LEFT SHIFT is Present. Performed By: #### L 100.0100, L500.2500 ####[facility] [address] [place], [address] Lymphocytes/100 WBC (Bld) 12.8 % Low 19-[address] [facility] Comment on above: Performed By: #### L 100.0100, L500.2500 ####[facility] [address] [place], [address] MCH (RBC) [Entitic mass] 28.8 pg Normal 27.0-32.[address] [facility] Comment on above: Performed By: #### L 100.0100, L500.2500 ####[facility] [address] [place], [address] MCHC (RBC) [Mass/Vol] 32.7 g/dL Normal 32-36 [facility] Comment on above: Performed By: #### L 100.0100, L500.2500 ####[facility] [address] [place], [address] MCV (RBC) [Entitic vol] 88.0 fL Normal 81-[address] [facility] Comment on above: Performed By: #### L 100.0100, L500.2500 ####[facility] [address] [place], [address] Monocytes/100 WBC (Bld) 13.5 % High 0-[address] [facility] Comment on above: Performed By: #### L 100.0100, L500.2500 ####[facility] [address] [place], [address] Neutrophils/100 WBC (Bld) 69.9 % Normal 47-[address] [facility] Comment on above: Performed By: #### L 100.0100, L500.2500 ####[facility] [address] [place], [address] Nucleated RBC (Bld) [#/Vol] 0 10*3/uL Normal 0-[address] [facility] Comment on above: Performed By: #### L 100.0100, L500.2500 ####[facility] [address] [place], [address] Platelet mean volume (Bld) [Entitic vol] 11.8 fL Normal 6.2-12.[address] [facility] Comment on above: Performed By: #### L 100.0100, L500.2500 ####[facility] [address] [place], [address] Platelets (Bld) [#/Vol] 165 10*3/uL Normal 150-[address] [facility] Comment on above: Performed By: #### L 100.0100, L500.2500 ####[facility] [address] [place], [address] RBC (Bld) [#/Vol] 3.09 10*6/uL Low 4.2-5.4 [facility] Comment on above: Performed By: #### L 100.0100, L500.2500 ####[facility] [address] [place], [address] RDW SD 50.9 fl High 35.1-43.[address] [facility] Comment on above: Performed By: #### L 100.0100, L500.2500 ####[facility] [address] [place], [address] WBC (Bld) [#/Vol] 5.3 10*3/uL Normal 4.4-11.0 [facility] Comment on above: Performed By: #### L 100.0100, L500.2500 ####[facility] [address] [place], [address] Culture, Blood (WB)on 2024 CUB Normal [facility] Comment on above: Performed By: #### M 200.1000 ####[facility] [address] [place], [address] Gram stainOrdered By: Keri Irene on 05-20-2025 Microscopic observation Gram stain Nom (Unsp spec) [facility] Wound Cultureon 05-20-[address] [facility] Comment on above: Performed By: #### M 100.2000, M8200.1075, M100.3000 ####[facility] [address] [place], [address] Bedside Glucoseon 05-19-2025 FINGERSTICK GLU 197 mg/dL High 74-[address] [facility] Comment on above: Result Comment: JEREMIAS GEMENT OF PATIENT CARE PER NURSING PROTOCOL Performed By: #### L 501.080 ####[facility] [address] [place], [address] FINGERSTICK GLU 237 mg/dL High 74-[address] [facility] Comment on above: Result Comment: JEREMIAS GEMENT OF PATIENT CARE PER NURSING PROTOCOL Performed By: #### L 501.080 ####[facility] [address] [place], [address] FINGERSTICK GLU 111 mg/dL High 74-[address] [facility] Comment on above: Result Comment: JEREMIAS GEMENT OF PATIENT CARE PER NURSING PROTOCOL Performed By: #### L 501.080 ####[facility] [address] [place], [address] FINGERSTICK GLU 82 mg/dL Normal 74-[address] [facility] Comment on above: Result Comment: JEREMIAS GEMENT OF PATIENT CARE PER NURSING PROTOCOL Performed By: #### L 501.080 ####[facility] [address] [place], [address] Bilirubin, totalOrdered By: Michaela Joshua on 05-19-2025 Bilirubin [Mass/Vol] 0.25 mg/dL 0.00-1.30 [facility] CBC W/Diff, Automatedon 07- Absolute Lymph 0.79 X10 3/uL Low 0.83-4.[address] [facility] Comment on above: Performed By: #### L 501.5200, L501.2300, L100.0100, L500.4050 ####[facility] [address] [place], [address] Absolute Neut 4.2 X10 3/uL Normal 2.0-7.[address] [facility] Comment on above: Performed By: #### L 501.5200, L501.2300, L100.0100, L500.4050 ####[facility] [address] [place], [address] Basophils/100 WBC (Bld) 0.5 % Normal 0-[address] [facility] Comment on above: Performed By: #### L 501.5200, L501.2300, L100.0100, L500.4050 ####[facility] [address] [place], [address] Eosinophils/100 WBC (Bld) 1.6 % Normal 0-[address] [facility] Comment on above: Performed By: #### L 501.5200, L501.2300, L100.0100, L500.4050 ####[facility] [address] [place], [address] Erythrocyte distribution width (RBC) [Ratio] 15.7 % High 11.6-14.[address] [facility] Comment on above: Performed By: #### L 501.5200, L501.2300, L100.0100, L500.4050 ####[facility] [address] [place], [address] Hematocrit (Bld) [Volume fraction] 26.9 % Low 37-[address] [facility] Comment on above: Performed By: #### L 501.5200, L501.2300, L100.0100, L500.4050 ####[facility] [address] [place], [address] Hemoglobin (Bld) [Mass/Vol] 8.7 g/dL Low 12.0-15.[address] [facility] Comment on above: Performed By: #### L 501.5200, L501.2300, L100.0100, L500.4050 ####[facility] [address] [place], [address] IG% 0.500 Normal 0.0-0.[address] [facility] Comment on above: Result Comment: IG% - Immature Granulocytes (promyelocytes, myelocytes andmetamyelocytes) > 1% indicates that a LEFT SHIFT is Present. Performed By: #### L 501.5200, L501.2300, L100.0100, L500.4050 ####[facility] [address] [place], [address] Lymphocytes/100 WBC (Bld) 13.7 % Low 19-[address] [facility] Comment on above: Performed By: #### L 501.5200, L501.2300, L100.0100, L500.4050 ####[facility] [address] [place], [address] MCH (RBC) [Entitic mass] 29.2 pg Normal 27.0-32.[address] [facility] Comment on above: Performed By: #### L 501.5200, L501.2300, L100.0100, L500.4050 ####[facility] [address] [place], [address] MCHC (RBC) [Mass/Vol] 32.3 g/dL Normal 32-36 [facility] Comment on above: Performed By: #### L 501.5200, L501.2300, L100.0100, L500.4050 ####[facility] [address] [place], [address] MCV (RBC) [Entitic vol] 90.3 fL Normal 81-[address] [facility] Comment on above: Performed By: #### L 501.5200, L501.2300, L100.0100, L500.4050 ####[facility] [address] [place], [address] Monocytes/100 WBC (Bld) 10.4 % High 0-[address] [facility] Comment on above: Performed By: #### L 501.5200, L501.2300, L100.0100, L500.4050 ####[facility] [address] [place], [address] Neutrophils/100 WBC (Bld) 73.3 % High 47-[address] [facility] Comment on above: Performed By: #### L 501.5200, L501.2300, L100.0100, L500.4050 ####[facility] [address] [place], [address] Nucleated RBC (Bld) [#/Vol] 0 10*3/uL Normal 0-[address] [facility] Comment on above: Performed By: #### L 501.5200, L501.2300, L100.0100, L500.4050 ####[facility] [address] [place], [address] Platelet mean volume (Bld) [Entitic vol] 11.2 fL Normal 6.2-12.[address] [facility] Comment on above: Performed By: #### L 501.5200, L501.2300, L100.0100, L500.4050 ####[facility] [address] [place], [address] Platelets (Bld) [#/Vol] 148 10*3/uL Low 150-[address] [facility] Comment on above: Performed By: #### L 501.5200, L501.2300, L100.0100, L500.4050 ####[facility] [address] [place], [address] RBC (Bld) [#/Vol] 2.98 10*6/uL Low 4.2-5.4 [facility] Comment on above: Performed By: #### L 501.5200, L501.2300, L100.0100, L500.4050 ####[facility] [address] [place], [address] RDW SD 52.0 fl High 35.1-43.[address] [facility] Comment on above: Performed By: #### L 501.5200, L501.2300, L100.0100, L500.4050 ####[facility] [address] [place], [address] WBC (Bld) [#/Vol] 5.8 10*3/uL Normal 4.4-11.0 [facility] Comment on above: Performed By: #### L 501.5200, L501.2300, L100.0100, L500.4050 ####[facility] [address] [place], [address] Comprehensive Metabolic Prof ilon 05-19-2025 Albumin [Mass/Vol] 2.5 g/dL Low 3.4-4.8 [facility] Comment on above: Performed By: #### L 501.5200, L501.2300, L100.0100, L500.4050 ####[facility] [address] [place], [address] Albumin/Globulin [Mass ratio] 0.9 {ratio} Normal 0.9-2.[address] [facility] Comment on above: Performed By: #### L 501.5200, L501.2300, L100.0100, L500.4050 ####[facility] [address] [place], [address] ALK PHOS 45 U/L Normal 35-[address] [facility] Comment on above: Performed By: #### L 501.5200, L501.2300, L100.0100, L500.4050 ####[facility] [address] [place], [address] ALT [Catalytic activity/Vol] 37 U/L High <=[address] [facility] Comment on above: Performed By: #### L 501.5200, L501.2300, L100.0100, L500.4050 ####[facility] [address] [place], [address] AST [Catalytic activity/Vol] 68 U/L High <=[address] [facility] Comment on above: Performed By: #### L 501.5200, L501.2300, L100.0100, L500.4050 ####[facility] [address] [place], [address] Bilirubin [Mass/Vol] 0.25 mg/dL Normal 0.00-1.30 [facility] Comment on above: Performed By: #### L 501.5200, L501.2300, L100.0100, L500.4050 ####[facility] [address] [place], [address] BUN/CRE 36.4 RATIO High 10-[address] [facility] Comment on above: Performed By: #### L 501.5200, L501.2300, L100.0100, L500.4050 ####[facility] [address] [place], [address] Calcium [Mass/Vol] 8.8 mg/dL Normal 7.6-11.0 [facility] Comment on above: Performed By: #### L 501.5200, L501.2300, L100.0100, L500.4050 ####[facility] [address] [place], [address] Chloride [Moles/Vol] 109 mmol/L High 98-108 [facility] Comment on above: Performed By: #### L 501.5200, L501.2300, L100.0100, L500.4050 ####[facility] [address] [place], [address] CO2 [Moles/Vol] 19.4 mmol/L Low 21.0-32.[address] [facility] Comment on above: Performed By: #### L 501.5200, L501.2300, L100.0100, L500.4050 ####[facility] [address] [place], [address] Creatinine [Mass/Vol] 1.46 mg/dL High 0.70-1.20 [facility] Comment on above: Performed By: #### L 501.5200, L501.2300, L100.0100, L500.4050 ####[facility] [address] [place], [address] ECRCL 35.14 ml/min Low 50-[address] [facility] Comment on above: Performed By: #### L 501.5200, L501.2300, L100.0100, L500.4050 ####[facility] [address] [place], [address] GAP 11 Normal 5-[address] [facility] Comment on above: Performed By: #### L 501.5200, L501.2300, L100.0100, L500.4050 ####[facility] [address] [place], [address] GFR/1.73 sq M.predicted among non-blacks MDRD (S/P/Bld) [Vol rate/Area] 38 mL/min/{1.73_m2} Low >[address] [facility] Comment on above: Result Comment: mL/m in/1.73m2 CKD-EPI Creatinine Equation (2020) Performed By: #### L 501.5200, L501.2300, L100.0100, L500.4050 ####[facility] [address] [place], [address] Globulin (S) [Mass/Vol] 2.9 g/dL Normal 2.2-4.[address] [facility] Comment on above: Performed By: #### L 501.5200, L501.2300, L100.0100, L500.4050 ####[facility] [address] [place], [address] Glucose [Mass/Vol] 89 mg/dL Normal 70-99 [facility] Comment on above: Performed By: #### L 501.5200, L501.2300, L100.0100, L500.4050 ####[facility] [address] [place], [address] Potassium [Moles/Vol] 4.2 mmol/L Normal 3.3-5.1 [facility] Comment on above: Performed By: #### L 501.5200, L501.2300, L100.0100, L500.4050 ####[facility] [address] [place], [address] Sodium [Moles/Vol] 140 mmol/L Normal 133-145 [facility] Comment on above: Performed By: #### L 501.5200, L501.2300, L100.0100, L500.4050 ####[facility] [address] [place], [address] T PROT 5.4 g/dL Low 5.9-8.[address] [facility] Comment on above: Performed By: #### L 501.5200, L501.2300, L100.0100, L500.4050 ####[facility] [address] [place], [address] Urea nitrogen [Mass/Vol] 53 mg/dL High 4-[address] [facility] Comment on above: Performed By: #### L 501.5200, L501.2300, L100.0100, L500.4050 ####[facility] [address] [place], [address] Electrocardiogram reportOrde red By: Michael Schultz on 05-19-[address] [facility] Other Phone: Magnesiumon 05-19-2025 Magnesium [Mass/Vol] 2.5 mg/dL High 1.5-2.2 [facility] Comment on above: Performed By: #### L 501.5200, L501.2300, L100.0100, L500.4050 ####[facility] [address] [place], [address] Magnesium measurement (mass/ volume)Ordered By: Michaela Joshua on 05-19-2025 Magnesium (Unsp spec) [Mass/Vol] 2.5 mg/dL High 1.5-2.[address] [facility] No Panel InformationOrdered By: Michaela Joshua on 05-19-2025 68 U/L High <[address] [facility] Phosphoruson 05-19-2025 Phosphate [Mass/Vol] 3.7 mg/dL Normal 2.7-4.5 [facility] Comment on above: Performed By: #### L 501.5200, L501.2300, L100.0100, L500.4050 ####[facility] [address] [place], [place], [id number] Serum globulin measurementOr dered By: Michaela Joshua on 05-19-2025 Globulin (S) [Mass/Vol] 2.9 g/dL 2.2-4.[address] [facility] Serum or plasma alanine anaya otransferase (ALT) measurementOrdered By: Michaela Joshua on 05-19-2025 ALT [Catalytic activity/Vol] 37 U/L High <[address] [facility] Serum or plasma albumin natalia urement (mass/volume)Ordered By: Michaela Joshua on 05-19-2025 Albumin [Mass/Vol] 2.5 g/dL Low 3.4-4.8 [facility] Serum or plasma albumin/glob ulin mass ratioOrdered By: Michaela Joshua on 05-19-2025 Albumin/Globulin [Mass ratio] 0.9 {ratio} 0.9-2.[address] [facility] Serum or plasma alkaline chelsie sphatase measurementOrdered By: Michaela Joshua on 05-19-2025 ALP [Catalytic activity/Vol] 45 U/L 35-[address] [facility] Total proteinOrdered By: Rosalia Joshua on 05-19-2025 Protein [Mass/Vol] 5.4 g/dL Low 5.9-8.4 [facility] 12 Lead EKGon 05-18-2025 12 Lead EKG Normal [facility] Abdomen/Pelvis without Conto n 05-18-2025 Abdomen/Pelvis without Cont Normal [facility] Absolute lymphocyte countOrd ered By: Maddie Merchant on 05-18-2025 Lymphocytes Auto (Unsp spec) [#/Vol] 0.51 10*3/uL Low 0.83-4.[address] [facility] Activated partial thrombopla stin time (aPTT) in platelet poor plasma by coagulation aOrdered By: Maddie Merchant on 05-18-2025 aPTT Coag (PPP) [Time] 46.3 s High 24.1-36.2 [facility] Anion gap in Serum or Plasma Ordered By: Maddie Merchant on 05-18-2025 Anion gap [Moles/Vol] 13 mmol/L 5-15 [facility] Ankle min 3 Viewson 05-18-20 25 Ankle min 3 Views Normal [facility] Automated lymphocyte count a s percentage of total leukocytesOrdered By: Maddie Merchant on 05-18-2025 Lymphocytes/100 WBC Auto (Unsp spec) 8.1 % Low 19-[address] [facility] BUN/creatinine ratioOrdered By: Maddie Merchant on 05-18-2025 Urea nitrogen/Creatinine [Mass ratio] 39.9 mg/mg High 10-[address] [facility] Basophil percentageOrdered B y: Maddie Merchant on 05-18-2025 Basophils/100 WBC (Bld) 0.3 % 0-[address] [facility] Bedside Glucoseon 05-18-2025 FINGERSTICK GLU 195 mg/dL High 74-[address] [facility] Comment on above: Result Comment: JEREMIAS GEMENT OF PATIENT CARE PER NURSING PROTOCOL Performed By: #### L 501.080 ####[facility] [address] [facility] [address] FINGERSTICK GLU 191 mg/dL High 74-[address] [facility] Comment on above: Result Comment: JEREMIAS GEMENT OF PATIENT CARE PER NURSING PROTOCOL Performed By: #### L 501.080 ####[facility] [address] [facility] [address] FINGERSTICK GLU 93 mg/dL Normal 74-[address] [facility] Comment on above: Result Comment: JEREMIAS GEMENT OF PATIENT CARE PER NURSING PROTOCOL Performed By: #### L 501.080 ####[facility] [address] [facility] [address] FINGERSTICK GLU 132 mg/dL High 74-[address] [facility] Comment on above: Result Comment: JEREMIAS GEMENT OF PATIENT CARE PER NURSING PROTOCOL Performed By: #### L 501.080 ####[facility] [address] [place], [address] Bilirubin Test strip Ql (U)O rdered By: Jerri Castillo on 05-18-2025 Bilirubin Ql (U) Negative Negative [facility] Bilirubin, totalOrdered By: Maddie Merchant on 05-18-2025 Bilirubin [Mass/Vol] 0.29 mg/dL 0.00-1.30 [facility] CBC W/Diff, Automatedon 04-21 0-2024 Absolute Lymph 0.51 X10 3/uL Low 0.83-4.[address] [facility] Comment on above: Performed By: #### L 500.4050, L100.0100, L501.3620, L501.9985 ####[facility] [address] [place], [address] Absolute Neut 4.8 X10 3/uL Normal 2.0-7.[address] [facility] Comment on above: Performed By: #### L 500.4050, L100.0100, L501.3620, L501.9985 ####[facility] [address] [place], [address] Basophils/100 WBC (Bld) 0.3 % Normal 0-[address] [facility] Comment on above: Performed By: #### L 500.4050, L100.0100, L501.3620, L501.9985 ####[facility] [address] [place], [address] Eosinophils/100 WBC (Bld) 0.3 % Normal 0-[address] [facility] Comment on above: Performed By: #### L 500.4050, L100.0100, L501.3620, L501.9985 ####[facility] [address] [place], [address] Erythrocyte distribution width (RBC) [Ratio] 15.2 % High 11.6-14.[address] [facility] Comment on above: Performed By: #### L 500.4050, L100.0100, L501.3620, L501.9985 ####[facility] [address] [place], [address] Hematocrit (Bld) [Volume fraction] 26.2 % Low 37-[address] [facility] Comment on above: Performed By: #### L 500.4050, L100.0100, L501.3620, L501.9985 ####[facility] [address] [place], [address] Hemoglobin (Bld) [Mass/Vol] 8.5 g/dL Low 12.0-15.[address] [facility] Comment on above: Performed By: #### L 500.4050, L100.0100, L501.3620, L501.9985 ####[facility] [address] [place], [address] IG% 0.500 Normal 0.0-0.[address] [facility] Comment on above: Result Comment: IG% - Immature Granulocytes (promyelocytes, myelocytes andmetamyelocytes) > 1% indicates that a LEFT SHIFT is Present. Performed By: #### L 500.4050, L100.0100, L501.3620, L501.9985 ####[facility] [address] [place], [address] Lymphocytes/100 WBC (Bld) 8.1 % Low 19-[address] [facility] Comment on above: Performed By: #### L 500.4050, L100.0100, L501.3620, L501.9985 ####[facility] [address] [place], [address] MCH (RBC) [Entitic mass] 29.0 pg Normal 27.0-32.[address] [facility] Comment on above: Performed By: #### L 500.4050, L100.0100, L501.3620, L501.9985 ####[facility] [address] [place], [address] MCHC (RBC) [Mass/Vol] 32.4 g/dL Normal 32-36 [facility] Comment on above: Performed By: #### L 500.4050, L100.0100, L501.3620, L501.9985 ####[facility] [address] [place], [address] MCV (RBC) [Entitic vol] 89.4 fL Normal 81-[address] [facility] Comment on above: Performed By: #### L 500.4050, L100.0100, L501.3620, L501.9985 ####[facility] [address] [place], [address] Monocytes/100 WBC (Bld) 14.6 % High 0-[address] [facility] Comment on above: Performed By: #### L 500.4050, L100.0100, L501.3620, L501.9985 ####[facility] [address] [place], [address] Neutrophils/100 WBC (Bld) 76.2 % High 47-[address] [facility] Comment on above: Performed By: #### L 500.4050, L100.0100, L501.3620, L501.9985 ####[facility] [address] [place], [address] Nucleated RBC (Bld) [#/Vol] 0 10*3/uL Normal 0-[address] [facility] Comment on above: Performed By: #### L 500.4050, L100.0100, L501.3620, L501.9985 ####[facility] [address] [place], [address] Platelet mean volume (Bld) [Entitic vol] 11.4 fL Normal 6.2-12.[address] [facility] Comment on above: Performed By: #### L 500.4050, L100.0100, L501.3620, L501.9985 ####[facility] [address] [place], [address] Platelets (Bld) [#/Vol] 158 10*3/uL Normal 150-[address] [facility] Comment on above: Performed By: #### L 500.4050, L100.0100, L501.3620, L501.9985 ####[facility] [address] [place], [address] RBC (Bld) [#/Vol] 2.93 10*6/uL Low 4.2-5.4 [facility] Comment on above: Performed By: #### L 500.4050, L100.0100, L501.3620, L501.9985 ####[facility] [address] [place], [address] RDW SD 50.2 fl High 35.1-43.[address] [facility] Comment on above: Performed By: #### L 500.4050, L100.0100, L501.3620, L501.9985 ####[facility] [address] [place], [address] WBC (Bld) [#/Vol] 6.3 10*3/uL Normal 4.4-11.0 [facility] Comment on above: Performed By: #### L 500.4050, L100.0100, L501.3620, L501.9985 ####[facility] [address] [place], [address] CPK Total, Creatine Kinaseon 05-18-2025 CPK TOTAL 1008 U/L High 24-[address] [facility] Comment on above: Performed By: #### L 500.4050, L100.0100, L501.3620, L501.9985 ####[facility] [address] [place], [address] CTA Chest W/WO Contraston CTA Chest W/WO Contrast Normal [facility] Carbon dioxide, total [Moles /volume] in Central venous bloodOrdered By: Maddie Merchant on 05-18-2025 CO2 [Moles/Vol] 18.8 mmol/L Low 21.0-32.[address] [facility] Chloride assayOrdered By: Amira Merchant on 05-18-2025 Chloride [Moles/Vol] 104 mmol/L 98-108 [facility] Comprehensive Metabolic Prof ilon 05-18-2025 Albumin [Mass/Vol] 2.7 g/dL Low 3.4-4.8 [facility] Comment on above: Performed By: #### L 500.4050, L100.0100, L501.3620, L501.9985 ####[facility] [address] [place], [address] Albumin/Globulin [Mass ratio] 1.0 {ratio} Normal 0.9-2.[address] [facility] Comment on above: Performed By: #### L 500.4050, L100.0100, L501.3620, L501.9985 ####[facility] [address] [place], [address] ALK PHOS 47 U/L Normal 35-[address] [facility] Comment on above: Performed By: #### L 500.4050, L100.0100, L501.3620, L501.9985 ####[facility] [address] [place], [address] ALT [Catalytic activity/Vol] 33 U/L Normal <=[address] [facility] Comment on above: Performed By: #### L 500.4050, L100.0100, L501.3620, L501.9985 ####[facility] [address] [place], [address] AST [Catalytic activity/Vol] 70 U/L High <=[address] [facility] Comment on above: Performed By: #### L 500.4050, L100.0100, L501.3620, L501.9985 ####[facility] [address] [place], [address] Bilirubin [Mass/Vol] 0.29 mg/dL Normal 0.00-1.30 [facility] Comment on above: Performed By: #### L 500.4050, L100.0100, L501.3620, L501.9985 ####[facility] [address] [place], [address] BUN/CRE 39.9 RATIO High 10-[address] [facility] Comment on above: Performed By: #### L 500.4050, L100.0100, L501.3620, L501.9985 ####[facility] [address] [place], [address] Calcium [Mass/Vol] 9.1 mg/dL Normal 7.6-11.0 [facility] Comment on above: Performed By: #### L 500.4050, L100.0100, L501.3620, L501.9985 ####[facility] [address] [place], [address] Chloride [Moles/Vol] 104 mmol/L Normal 98-108 [facility] Comment on above: Performed By: #### L 500.4050, L100.0100, L501.3620, L501.9985 ####[facility] [address] [place], [address] CO2 [Moles/Vol] 18.8 mmol/L Low 21.0-32.[address] [facility] Comment on above: Performed By: #### L 500.4050, L100.0100, L501.3620, L501.9985 ####[facility] [address] [place], [address] Creatinine [Mass/Vol] 1.74 mg/dL High 0.70-1.20 [facility] Comment on above: Performed By: #### L 500.4050, L100.0100, L501.3620, L501.9985 ####[facility] [address] [place], [address] ECRCL 26.96 ml/min Low 50-[address] [facility] Comment on above: Performed By: #### L 500.4050, L100.0100, L501.3620, L501.9985 ####[facility] [address] [place], [address] GAP 13 Normal 5-[address] [facility] Comment on above: Performed By: #### L 500.4050, L100.0100, L501.3620, L501.9985 ####[facility] [address] [place], [address] GFR/1.73 sq M.predicted among non-blacks MDRD (S/P/Bld) [Vol rate/Area] 31 mL/min/{1.73_m2} Low >[address] [facility] Comment on above: Result Comment: mL/m in/1.73m2 CKD-EPI Creatinine Equation (2020) Performed By: #### L 500.4050, L100.0100, L501.3620, L501.9985 ####[facility] [address] [place], [address] Globulin (S) [Mass/Vol] 2.8 g/dL Normal 2.2-4.[address] [facility] Comment on above: Performed By: #### L 500.4050, L100.0100, L501.3620, L501.9985 ####[facility] [address] [place], [address] Glucose [Mass/Vol] 161 mg/dL High 70-99 [facility] Comment on above: Performed By: #### L 500.4050, L100.0100, L501.3620, L501.9985 ####[facility] [address] [place], [address] Potassium [Moles/Vol] 3.7 mmol/L Normal 3.3-5.1 [facility] Comment on above: Performed By: #### L 500.4050, L100.0100, L501.3620, L501.9985 ####[facility] [address] [place], [address] Sodium [Moles/Vol] 136 mmol/L Normal 133-145 [facility] Comment on above: Performed By: #### L 500.4050, L100.0100, L501.3620, L501.9985 ####[facility] [address] [place], [address] T PROT 5.5 g/dL Low 5.9-8.[address] [facility] Comment on above: Performed By: #### L 500.4050, L100.0100, L501.3620, L501.9985 ####[facility] [address] [place], [address] Urea nitrogen [Mass/Vol] 69 mg/dL High - [facility] Comment on above: Performed By: #### L 500.4050, L100.0100, L501.3620, L501.9985 ####[facility] [address] [place], [address] Consultation - Infectious Dx on 05-18-2025 Consultation - Infectious Dx Normal [facility] Consultation - Intensiviston 05-18-2025 Consultation - Property Man Normal [facility] Consultation - Surgicalon Consultation - Surgical Normal [facility] Eosinophil percentageOrdered By: Maddie White on 05-18-2025 Eosinophils/100 WBC (Bld) 0.3 % 0-[address] [facility] Erythrocyte Sed Rateon 05-18 SED RATE 54 mm/hr High 0- [facility] Comment on above: Performed By: #### L [id number] ####[facility] [id number] [place], [place], [id number] Erythrocyte distribution wid th ratioOrdered By: Maddie Merchant on 05-18-2025 Erythrocyte distribution width (RBC) [Ratio] 15.2 % High 11.6-14.[address] [facility] Erythrocyte distribution wid th standard deviationOrdered By: Maddie Shonda on 05-18-2025 Erythrocyte distribution width (RBC) [Ratio] 50.2 fl High 35.1-43.[address] [facility] Erythrocyte sedimentation ra teOrdered By: Patel Irene on 05-18-2025 ESR (Bld) [Velocity] 54 mm/h High 0-30 [facility] Glomerular filtration rate ( GFR) estimation/1.73 sq m using serum, plasma, or whole bOrdered By: Maddie Merchant on 05-18-2025 GFR/1.73 sq M.predicted among non-blacks MDRD (S/P/Bld) [Vol rate/Area] 31 mL/min/{1.73_m2} Low >[address] [facility] Glucose measurement at [facility] deOrdered By: Michaela Joshua on 05-18-2025 Glucose [Mass/Vol] 195 mg/dL High 74-106 [facility] Gram Stainon 05-18-2025 GS List Antibiotics [place] 48 Hours? rocephin and vancomycin List Antibiotics to be Started? zosyn Gram Stain 1+ Gram positive cocci Normal [facility] Comment on above: Performed By: #### M 100.2000, M8200.1075, M100.3000 ####[facility] [address] [place], [place], [id number] Gram stainOrdered By: Maddie Merchant on 05-18-2025 Microscopic observation Gram stain Nom (Unsp spec) [facility] H AND P Exam - Hospitaliston 05-18-2025 H&P Exam - Hospitalist Normal [facility] Hematocrit Auto (Bld) [Volum e fraction]Ordered By: Maddie Merchant on 05-18-2025 Hematocrit (Bld) [Volume fraction] 26.2 % Low 37-[address] [facility] Hemoglobin A1c percentageOrd ered By: Maddie Merchant on 05-18-2025 HbA1c (Bld) [Mass fraction] 7.6 % High <5.[address] [facility] Comment on above: Result Comment: Norm al < 5.7 % Prediabetic 5.7 - 6.4 % Diabetic >or= 6.5 % Please note range changes. Performed By: #### L 500.4050, L100.0100, L501.3620, L501.9985 ####[facility] [address] [place], [address] Hemoglobin measurementOrdere d By: Maddie Shonda on 05-18-2025 Hemoglobin (Bld) [Mass/Vol] 8.5 g/dL Low 12.0-15.[address] [facility] Immature granulocytes/100 WB C Auto (Bld)Ordered By: Maddie Shonda on 05-18-2025 Immature granulocytes/100 WBC (Bld) 0.500 % 0.0-0.[address] [facility] Ketones Test strip Ql (U)Ord ered By: Jerri Castillo on 05-18-2025 Ketones Ql (U) 5 mg/dl High Negative [facility] Lactic Acidon 05-18-2025 Lactate [Moles/Vol] mmol/L Normal 0.0-2.0 [facility] Comment on above: Order Comment: Comme nts: if result >2, system reflex orders 2nd test @ 4hrsY Performed By: #### L 503.6005 ####[facility] [address] [place], [address] M8200.1075on 05-18-2025 M8200.[address] [facility] Comment on above: Performed By: #### M 100.2000, M8200.1075, M100.3000 ####[facility] [address] [place], [address] MCV (mean corpuscular volume ) determinationOrdered By: Maddie Merchant on 05-18-2025 MCV (RBC) [Entitic vol] 89.4 fL 81-[address] [facility] Magnesiumon 05-18-2025 Magnesium [Mass/Vol] 2.6 mg/dL High 1.5-2.2 [facility] Comment on above: Order Comment: Comme nts: May add to ED labsComments: may add to ED labs Performed By: #### L 501.5200, L501.2300 ####[facility] [address] [place], [address] Mean corpuscular hemoglobin (MCH) determinationOrdered By: Maddie Merchant on 05-18-2025 MCH (RBC) [Entitic mass] 29.0 pg 27.0-32.[address] [facility] Methicillin resistant Staphy lococcus aureus detection by polymerase chain reactionOrdered By: Maddie Merchant on 05-18-2025 Bacterial nucleic acid assay Meth. resistant Staph. aureus Abnormal [facility] Monocyte percentageOrdered B y: Maddie Merchant on 05-18-2025 Monocytes/100 WBC (Bld) 14.6 % High 0-[address] [facility] Mucus LM Ql (Urine sed)Order ed By: Jerri Castillo on 05-18-2025 Mucus Ql (Urine sed) 0 SEEN /hpf [facility] Neutrophil percentageOrdered By: [facility] Shonda on 05-18-2025 Neutrophils/100 WBC (Bld) 76.2 % High 47-[address] [facility] Nitrite Test strip Ql (U)Ord ered By: Jerri Castillo on 05-18-2025 Nitrite Ql (U) Negative Negative [facility] No Panel InformationOrdered By: [facility] Shonda on 05-18-2025 70 U/L High <[address] [facility] Partial Thromboplast Timeon 05-18-2025 aPTT Coag (Bld) [Time] 46.3 s High 24.1-36.2 [facility] Comment on above: Performed By: #### L 300.3900, L300.4310 ####[facility] [address] [place], [place], [id number] Phosphoruson 05-18-2025 Phosphate [Mass/Vol] 3.8 mg/dL Normal 2.7-4.5 [facility] Comment on above: Order Comment: Comme nts: May add to ED labsComments: may add to ED labs Performed By: #### L 501.5200, L501.2300 ####[facility] [address] [place], [address] Platelet countOrdered By: Amira Merchant on 05-18-2025 Platelets (Bld) [#/Vol] 158 10*3/uL 150-[address] [facility] Potassium measurement (mass/ volume)Ordered By: Maddie Merchant on 05-18-2025 Potassium (Unsp spec) [Mass/Vol] 3.7 mmol/L 3.3-5.[address] [facility] Protein Test strip Ql (U)Ord ered By: Jerri Castillo on 05-18-2025 Protein Ql (U) 100 mg/dl High Negative [facility] Prothrombin Time w/INRon INR Coag (PPP) [Relative time] 2.2 {INR} Normal [facility] Comment on above: Performed By: #### L 300.3900, L300.4310 ####[facility] [address] [place], [address] PT Coag (PPP) [Time] 15.5 s High 11.7-14.9 [facility] Comment on above: Performed By: #### L 300.3900, L300.4310 ####[facility] [address] [place], [address] Prothrombin timeOrdered By: Maddie Merchant on 05-18-2025 PT Coag (PPP) [Time] 15.5 s High 11.7-14.9 [facility] RBC Auto (Bld) [#/Vol]Ordere d By: Maddie Merchant on 05-18-2025 RBC (Bld) [#/Vol] 2.93 10*6/uL Low 4.2-5.4 [facility] Routine wound cultureOrdered By: Maddie Merchant on 05-18-2025 Microbial culture, routine Meth. resistant Staph. aureus Abnormal [facility] Serum creatinine measurement (mass/volume)Ordered By: Maddie Merchant on 05-18-2025 Creatinine [Mass/Vol] 1.74 mg/dL High 0.70-1.20 [facility] Serum globulin measurementOr dered By: Maddie Merchant on 05-18-2025 Globulin (S) [Mass/Vol] 2.8 g/dL 2.2-4.[address] [facility] Serum glucose measurement (m ass/volume)Ordered By: Maddie Merchant on 05-18-2025 Glucose [Mass/Vol] 161 mg/dL High 70-99 [facility] Serum or plasma alanine anaya otransferase (ALT) measurementOrdered By: Maddie Merchant on 05-18-2025 ALT [Catalytic activity/Vol] 33 U/L <[address] [facility] Serum or plasma albumin natalia urement (mass/volume)Ordered By: Maddie Merchant on 05-18-2025 Albumin [Mass/Vol] 2.7 g/dL Low 3.4-4.8 [facility] Serum or plasma albumin/glob ulin mass ratioOrdered By: Maddie Merchant on 05-18-2025 Albumin/Globulin [Mass ratio] 1.0 {ratio} 0.9-2.[address] [facility] Serum or plasma alkaline chelsie sphatase measurementOrdered By: Maddie Merchant on 05-18-2025 ALP [Catalytic activity/Vol] 47 U/L 35-[address] [facility] Serum or plasma calcium natalia urement (mass/volume)Ordered By: Maddie Merchant on 05-18-2025 Calcium [Mass/Vol] 9.1 mg/dL 7.6-11.0 [facility] Serum or plasma creatine kin ase activityOrdered By: Maddie Merchant on 05-18-2025 CK [Catalytic activity/Vol] 1008 U/L High 24-[address] [facility] Serum or plasma urea nitroge n measurement (mass/volume)Ordered By: Maddie Merchant on 05-18-2025 Urea nitrogen [Mass/Vol] 69 mg/dL High 4-[address] [facility] Sodium levelOrdered By: Renea mn Shonda on 05-18-2025 Sodium [Moles/Vol] 136 mmol/L 133-145 [facility] Squamous epithelial cells de tection in urine sediment by light microscopyOrdered By: Jerri Castillo on 05-18-2025 Epithelial cells.squamous LM Ql (Urine sed) 0-5 SEEN /hpf 5-[address] [facility] Total proteinOrdered By: Stacia umn White on 05-18-2025 Protein [Mass/Vol] 5.5 g/dL Low 5.9-8.4 [facility] Urinalysis, Completeon 05-18 BACTERIA 3+ /hpf Normal None Seen [facility] Comment on above: Order Comment: CORRIE CTOR TO SPECIFY Performed By: #### L 400.0001 ####[facility] [address] [place], [address] EPI,SQUAMOUS 0-5 SEEN Normal 5-[address] [facility] Comment on above: Order Comment: CORRIE CTOR TO SPECIFY Performed By: #### L 400.0001 ####[facility] [address] [place], [address] WBC >100 SEEN Normal 0-[address] [facility] Comment on above: Order Comment: CORRIE CTOR TO SPECIFY Performed By: #### L 400.0001 ####[facility] [address] [place], [address] BILIRUBIN URINE Negative Normal Negative [facility] Comment on above: Order Comment: CORRIE CTOR TO SPECIFY Performed By: #### L 400.0001 ####[facility] [address] [place], [address] Clarity (U) Cloudy Normal Clear [facility] Comment on above: Order Comment: CORRIE CTOR TO SPECIFY Performed By: #### L 400.0001 ####[facility] [address] [place], [address] Color (U) Yellow Normal Yellow [facility] Comment on above: Order Comment: CORRIE CTOR TO SPECIFY Performed By: #### L 400.0001 ####[facility] [address] [place], [address] GLUCOSE, UR Normal Normal Normal [facility] Comment on above: Order Comment: CORRIE CTOR TO SPECIFY Performed By: #### L 400.0001 ####[facility] [address] [place], [address] KETONE UR 5 mg/dl Abnormal Negative [facility] Comment on above: Order Comment: CORRIE CTOR TO SPECIFY Performed By: #### L 400.0001 ####[facility] [address] [place], [address] LEUK ESTERASE 500 /ul Abnormal Negative [facility] Comment on above: Order Comment: CORRIE CTOR TO SPECIFY Performed By: #### L 400.0001 ####[facility] [address] [place], [address] Nitrite Ql (U) Negative Normal Negative [facility] Comment on above: Order Comment: CORRIE CTOR TO SPECIFY Performed By: #### L 400.0001 ####[facility] [address] [place], [address] OCCULT BLOOD-UR 250 /ul Abnormal Negative [facility] Comment on above: Order Comment: CORRIE CTOR TO SPECIFY Performed By: #### L 400.0001 ####[facility] [address] [place], [address] pH UR 5.0 Normal 5.0 - 8.[address] [facility] Comment on above: Order Comment: CORRIE CTOR TO SPECIFY Performed By: #### L 400.0001 ####[facility] [address] [place], [address] PROT DIPSTX 100 mg/dl Abnormal Negative [facility] Comment on above: Order Comment: CORRIE CTOR TO SPECIFY Performed By: #### L 400.0001 ####[facility] [address] [place], [address] SP.GR. DIPSTX 1.020 Normal 1.002-1.[address] [facility] Comment on above: Order Comment: CORRIE CTOR TO SPECIFY Performed By: #### L 400.0001 ####[facility] [address] [place], [address] UROBILI Normal Normal Normal [facility] Comment on above: Order Comment: CORRIE CTOR TO SPECIFY Performed By: #### L 400.0001 ####[facility] [address] [place], [address] Mucus Ql (Urine sed) 0 SEEN Normal [facility] Comment on above: Order Comment: CORRIE CTOR TO SPECIFY Performed By: #### L 400.0001 ####[facility] [address] [place], [place], [address] RBC 0 SEEN Normal 0-[address] [facility] Comment on above: Order Comment: CORRIE CTOR TO SPECIFY Performed By: #### L 400.0001 ####[facility] [address] [place], [place], [address] Urine clarityOrdered By: Tessa Castillo on 05-18-2025 Clarity (U) Cloudy Clear [facility] Urine color determinationOrd ered By: Jerri Castillo on 05-18-2025 Color (U) Yellow Yellow [facility] Urine glucose detectionOrder ed By: Jerri Castillo on 05-18-2025 Glucose Ql (U) Normal mg/dl Normal [facility] Urine leukocyte esterase det ection by dipstickOrdered By: Jerri Castillo on 05-18-2025 Leukocyte esterase Test strip Ql (U) 500 /ul High Negative [facility] Urine pHOrdered By: Jerri Kendall gur on 05-18-2025 pH (U) 5.0 [pH] 5.0 - 8.[address] [facility] Urine sediment bacteria coun t by microscopy (number/high power field)Ordered By: Jerri Castillo on 05-18-2025 Bacteria LM.HPF (Urine sed) [#/Area] 3 /[HPF] None Seen [facility] Urine specific gravity measu rementOrdered By: Jerri Castillo on 05-18-2025 Specific gravity (U) [Rel density] 1.020 1.002-1.[address] [facility] Urine urobilinogen measureme ntOrdered By: Jerri Castillo on 05-18-2025 Urobilinogen Ql (U) Normal mg/dl Normal [facility] White blood cell (WBC) count Ordered By: Maddie Merchant on 05-18-2025 WBC (Bld) [#/Vol] 6.3 10*3/uL 4.4-11.0 [facility] White blood cell countOrdere d By: Jerri Sandypraveen on 05-18-2025 White blood cell count >100 SEEN /hpf 0-[address] [facility] Absolute lymphocyte countOrd ered By: Jerri Sandypraveen on 05-17-2025 Lymphocytes Auto (Unsp spec) [#/Vol] 0.52 10*3/uL Low 0.83-4.[address] [facility] Anion gap in Serum or Plasma Ordered By: Jerri Sandypraveen on 05-17-2025 Anion gap [Moles/Vol] 16 mmol/L High 5-15 [facility] Automated lymphocyte count a s percentage of total leukocytesOrdered By: Jerri Sandypraveen on 05-17-2025 Lymphocytes/100 WBC Auto (Unsp spec) 7.4 % Low 19-[address] [facility] BUN/creatinine ratioOrdered By: Jerri Sandypraveen on 05-17-2025 Urea nitrogen/Creatinine [Mass ratio] 39.9 mg/mg High 10-[address] [facility] Basophil percentageOrdered B y: Jerri Sandypraveen on 05-17-2025 Basophils/100 WBC (Bld) 0.6 % 0-[address] [facility] Bilirubin, totalOrdered By: Jerri Sandypraveen on 05-17-2025 Bilirubin [Mass/Vol] 0.45 mg/dL 0.00-1.30 [facility] Blood cultureOrdered By: Tessa Sandypraveen on 05-17-2025 Bacteria identified Cx Nom (Bld) Meth. resistant Staph. aureus Abnormal [facility] CBC W/Diff, Automatedon 04-20 Absolute Lymph 0.52 X10 3/uL Low 0.83-4.[address] [facility] Comment on above: Performed By: #### L 100.0100, L503.6005, L500.4050 ####[facility] [address] [place], [address] Absolute Neut 5.7 X10 3/uL Normal 2.0-7.[address] [facility] Comment on above: Performed By: #### L 100.0100, L503.6005, L500.4050 ####[facility] [address] [place], [address] Basophils/100 WBC (Bld) 0.6 % Normal 0-[address] [facility] Comment on above: Performed By: #### L 100.0100, L503.6005, L500.4050 ####[facility] [address] [place], [address] Eosinophils/100 WBC (Bld) 0.0 % Normal 0-[address] [facility] Comment on above: Performed By: #### L 100.0100, L503.6005, L500.4050 ####[facility] [address] [place], [address] Erythrocyte distribution width (RBC) [Ratio] 15.3 % High 11.6-14.[address] [facility] Comment on above: Performed By: #### L 100.0100, L503.6005, L500.4050 ####[facility] [address] [place], [address] Hematocrit (Bld) [Volume fraction] 27.7 % Low 37-[address] [facility] Comment on above: Performed By: #### L 100.0100, L503.6005, L500.4050 ####[facility] [address] [place], [address] Hemoglobin (Bld) [Mass/Vol] 8.9 g/dL Low 12.0-15.[address] [facility] Comment on above: Performed By: #### L 100.0100, L503.6005, L500.4050 ####[facility] [address] [place], [address] IG% 0.600 Normal 0.0-0.[address] [facility] Comment on above: Result Comment: IG% - Immature Granulocytes (promyelocytes, myelocytes andmetamyelocytes) > 1% indicates that a LEFT SHIFT is Present. Performed By: #### L 100.0100, L503.6005, L500.4050 ####[facility] [address] [place], [address] Lymphocytes/100 WBC (Bld) 7.4 % Low 19-[address] [facility] Comment on above: Performed By: #### L 100.0100, L503.6005, L500.4050 ####[facility] [address] [place], [address] MCH (RBC) [Entitic mass] 29.0 pg Normal 27.0-32.[address] [facility] Comment on above: Performed By: #### L 100.0100, L503.6005, L500.4050 ####[facility] [address] [place], [address] MCHC (RBC) [Mass/Vol] 32.1 g/dL Normal 32-36 [facility] Comment on above: Performed By: #### L 100.0100, L503.6005, L500.4050 ####[facility] [address] [place], [address] MCV (RBC) [Entitic vol] 90.2 fL Normal 81-[address] [facility] Comment on above: Performed By: #### L 100.0100, L503.6005, L500.4050 ####[facility] [address] [place], [address] Monocytes/100 WBC (Bld) 10.6 % High 0-[address] [facility] Comment on above: Performed By: #### L 100.0100, L503.6005, L500.4050 ####[facility] [address] [place], [address] Neutrophils/100 WBC (Bld) 80.8 % High 47-[address] [facility] Comment on above: Performed By: #### L 100.0100, L503.6005, L500.4050 ####[facility] [address] [place], [address] Nucleated RBC (Bld) [#/Vol] 0 10*3/uL Normal 0-[address] [facility] Comment on above: Performed By: #### L 100.0100, L503.6005, L500.4050 ####[facility] [address] [place], [address] Platelet mean volume (Bld) [Entitic vol] 11.3 fL Normal 6.2-12.[address] [facility] Comment on above: Performed By: #### L 100.0100, L503.6005, L500.4050 ####[facility] [address] [place], [address] Platelets (Bld) [#/Vol] 162 10*3/uL Normal 150-[address] [facility] Comment on above: Performed By: #### L 100.0100, L503.6005, L500.4050 ####[facility] [address] [place], [address] RBC (Bld) [#/Vol] 3.07 10*6/uL Low 4.2-5.4 [facility] Comment on above: Performed By: #### L 100.0100, L503.6005, L500.4050 ####[facility] [address] [place], [address] RDW SD 50.8 fl High 35.1-43.[address] [facility] Comment on above: Performed By: #### L 100.0100, L503.6005, L500.4050 ####[facility] [address] [place], [address] WBC (Bld) [#/Vol] 7.1 10*3/uL Normal 4.4-11.0 [facility] Comment on above: Performed By: #### L 100.0100, L503.6005, L500.4050 ####[facility] [address] [place], [address] CPK Total, Creatine Kinaseon 05-17-2025 CPK TOTAL 1177 U/L High 24-[address] [facility] Comment on above: Performed By: #### L 501.3620 ####[facility] [address] [place], [address] Carbon dioxide, total [Moles /volume] in Central venous bloodOrdered By: Jerri Castillo on 05-17-2025 CO2 [Moles/Vol] 17.5 mmol/L Low 21.0-32.[address] [facility] Chest 1 View (Portable)on Chest 1 View (Portable) Normal [facility] Chloride assayOrdered By: Stephanie Castillo on 05-17-2025 Chloride [Moles/Vol] 97 mmol/L Low 98-108 [facility] Comprehensive Metabolic Prof ilon 05-17-2025 Albumin [Mass/Vol] 2.9 g/dL Low 3.4-4.8 [facility] Comment on above: Performed By: #### L 100.0100, L503.6005, L500.4050 ####[facility] [address] [place], [address] Albumin/Globulin [Mass ratio] 0.8 {ratio} Low 0.9-2.[address] [facility] Comment on above: Performed By: #### L 100.0100, L503.6005, L500.4050 ####[facility] [address] [place], [address] ALK PHOS 54 U/L Normal 35-[address] [facility] Comment on above: Performed By: #### L 100.0100, L503.6005, L500.4050 ####[facility] [address] [place], [address] ALT [Catalytic activity/Vol] 36 U/L High <=[address] [facility] Comment on above: Performed By: #### L 100.0100, L503.6005, L500.4050 ####[facility] [address] [place], [address] AST [Catalytic activity/Vol] 83 U/L High <=[address] [facility] Comment on above: Result Comment: Hemo lysis present, Results??could be affected.?? Performed By: #### L 100.0100, L503.6005, L500.4050 ####[facility] [address] [place], [address] Bilirubin [Mass/Vol] 0.45 mg/dL Normal 0.00-1.30 [facility] Comment on above: Performed By: #### L 100.0100, L503.6005, L500.4050 ####[facility] [address] [place], [address] BUN/CRE 39.9 RATIO High 10-[address] [facility] Comment on above: Performed By: #### L 100.0100, L503.6005, L500.4050 ####[facility] [address] [place], [address] Calcium [Mass/Vol] 9.2 mg/dL Normal 7.6-11.0 [facility] Comment on above: Performed By: #### L 100.0100, L503.6005, L500.4050 ####[facility] [address] [place], [address] Chloride [Moles/Vol] 97 mmol/L Low 98-108 [facility] Comment on above: Performed By: #### L 100.0100, L503.6005, L500.4050 ####[facility] [address] [place], [address] CO2 [Moles/Vol] 17.5 mmol/L Low 21.0-32.[address] [facility] Comment on above: Performed By: #### L 100.0100, L503.6005, L500.4050 ####[facility] [address] [place], [address] Creatinine [Mass/Vol] 1.96 mg/dL High 0.70-1.20 [facility] Comment on above: Performed By: #### L 100.0100, L503.6005, L500.4050 ####[facility] [address] [place], [address] ECRCL 26.13 ml/min Low 50-[address] [facility] Comment on above: Performed By: #### L 100.0100, L503.6005, L500.4050 ####[facility] [address] [place], [address] GAP 16 High 5-[address] [facility] Comment on above: Performed By: #### L 100.0100, L503.6005, L500.4050 ####[facility] [address] [place], [address] GFR/1.73 sq M.predicted among non-blacks MDRD (S/P/Bld) [Vol rate/Area] 27 mL/min/{1.73_m2} Low >[address] [facility] Comment on above: Result Comment: mL/m in/1.73m2 CKD-EPI Creatinine Equation (2020) Performed By: #### L 100.0100, L503.6005, L500.4050 ####[facility] [address] [place], [address] Globulin (S) [Mass/Vol] 3.4 g/dL Normal 2.2-4.[address] [facility] Comment on above: Performed By: #### L 100.0100, L503.6005, L500.4050 ####[facility] [address] [place], [address] Glucose [Mass/Vol] 253 mg/dL High 70-99 [facility] Comment on above: Performed By: #### L 100.0100, L503.6005, L500.4050 ####[facility] [address] [place], [address] Potassium [Moles/Vol] 4.7 mmol/L Normal 3.3-5.1 [facility] Comment on above: Result Comment: Hemo lysis present, Results??could be affected.?? Performed By: #### L 100.0100, L503.6005, L500.4050 ####[facility] [address] [place], [address] Sodium [Moles/Vol] 131 mmol/L Low 133-145 [facility] Comment on above: Performed By: #### L 100.0100, L503.6005, L500.4050 ####[facility] [address] [place], [address] T PROT 6.3 g/dL Normal 5.9-8.[address] [facility] Comment on above: Performed By: #### L 100.0100, L503.6005, L500.4050 ####[facility] [address] [place], [address] Urea nitrogen [Mass/Vol] 78 mg/dL High 4-[address] [facility] Comment on above: Performed By: #### L 100.0100, L503.6005, L500.4050 ####[facility] [address] [place], [address] Emergency Department Summary on 05-17-2025 Emergency Department Summary Normal [facility] Eosinophil percentageOrdered By: Jerri Castillo on 05-17-2025 Eosinophils/100 WBC (Bld) 0.0 % 0-[address] [facility] Erythrocyte distribution wid th ratioOrdered By: Jerri Castillo on 05-17-2025 Erythrocyte distribution width (RBC) [Ratio] 15.3 % High 11.6-14.[address] [facility] Erythrocyte distribution wid th standard deviationOrdered By: Jerri Castillo on 05-17-2025 Erythrocyte distribution width (RBC) [Ratio] 50.8 fl High 35.1-43.[address] [facility] Foot min 3 Viewson 5 Foot min 3 Views [address] [facility] Glomerular filtration rate ( GFR) estimation/1.73 sq m using serum, plasma, or whole bOrdered By: Jerri Castillo on 05-17-2025 GFR/1.73 sq M.predicted among non-blacks MDRD (S/P/Bld) [Vol rate/Area] 27 mL/min/{1.73_m2} Low >[address] [facility] Hematocrit Auto (Bld) [Volum e fraction][facility] on 05-17-2025 Hematocrit (Bld) [Volume fraction] 27.7 % Low 37-[address] [facility] Hemoglobin measurementOrdere d By: [facility] on 05-17-2025 Hemoglobin (Bld) [Mass/Vol] 8.9 g/dL Low 12.0-15.[address] [facility] Immature granulocytes/100 WB C Auto (Bld)Ordered By: [facility] on 05-17-2025 Immature granulocytes/100 WBC (Bld) 0.600 % 0.0-0.[address] [facility] Lactic Acidon 05-17-2025 Lactate [Moles/Vol] mmol/L Normal 0.0-2.0 [facility] Comment on above: Order Comment: Y Performed By: #### L 100.0100, L503.6005, L500.4050 ####[facility] [address] [place], [address] MCV (mean corpuscular volume ) determinationOrdered By: Jerri Castillo on 05-17-2025 MCV (RBC) [Entitic vol] 90.2 fL 81-[address] [facility] Magnesium measurement (mass/ volume)Ordered By: Maddie Merchant on 05-17-2025 Magnesium (Unsp spec) [Mass/Vol] 2.6 mg/dL High 1.5-2.[address] [facility] Mean corpuscular hemoglobin (MCH) determinationOrdered By: Jerri Castillo on 05-17-2025 MCH (RBC) [Entitic mass] 29.0 pg 27.0-32.[address] [facility] Monocyte percentageOrdered B y: Jerri Castillo on 05-17-2025 Monocytes/100 WBC (Bld) 10.6 % High 0-[address] [facility] Neutrophil percentageOrdered By: Jerri Castillo on 05-17-2025 Neutrophils/100 WBC (Bld) 80.8 % High 47-[address] [facility] No Panel InformationOrdered By: Jerri Castillo on 05-17-2025 83 U/L High <[address] [facility] Platelet countOrdered By: Stephanie Castillo on 05-17-2025 Platelets (Bld) [#/Vol] 162 10*3/uL 150-[address] [facility] Potassium measurement (mass/ volume)Ordered By: Jerri Castillo on 05-17-2025 Potassium (Unsp spec) [Mass/Vol] 4.7 mmol/L 3.3-5.[address] [facility] RBC Auto (Bld) [#/Vol]Ordere d By: Jerri Castillo on 05-17-2025 RBC (Bld) [#/Vol] 3.07 10*6/uL Low 4.2-5.4 [facility] Serum creatinine measurement (mass/volume)Ordered By: Jerri Castillo on 05-17-2025 Creatinine [Mass/Vol] 1.96 mg/dL High 0.70-1.20 [facility] Serum globulin measurementOr dered By: Jerri Castillo on 05-17-2025 Globulin (S) [Mass/Vol] 3.4 g/dL 2.2-4.[address] [facility] Serum glucose measurement (m ass/volume)Ordered By: Jerri Castillo on 05-17-2025 Glucose [Mass/Vol] 253 mg/dL High 70-99 [facility] Serum or plasma alanine anaya otransferase (ALT) measurementOrdered By: Jerri Castillo on 05-17-2025 ALT [Catalytic activity/Vol] 36 U/L High <[address] [facility] Serum or plasma albumin natalia urement (mass/volume)Ordered By: Rem Jonathan on 05-17-2025 Albumin [Mass/Vol] 2.9 g/dL Low 3.4-4.8 [facility] Serum or plasma albumin/glob ulin mass ratioOrdered By: Remus Ungpraveen on 05-17-2025 Albumin/Globulin [Mass ratio] 0.8 {ratio} Low 0.9-2.[address] [facility] Serum or plasma alkaline chelsie sphatase measurementOrdered By: Remus Sandypraveen on 05-17-2025 ALP [Catalytic activity/Vol] 54 U/L 35-[address] [facility] Serum or plasma calcium natalia urement (mass/volume)Ordered By: Remus Sandypraveen on 05-17-2025 Calcium [Mass/Vol] 9.2 mg/dL 7.6-11.0 [facility] Serum or plasma creatine kin ase activityOrdered By: Remus Sandypraveen on 05-17-2025 CK [Catalytic activity/Vol] 1177 U/L High 24-[address] [facility] Serum or plasma urea nitroge n measurement (mass/volume)Ordered By: Remus Sandypraveen on 05-17-2025 Urea nitrogen [Mass/Vol] 78 mg/dL High 4-[address] [facility] Sodium levelOrdered By: Rocio s Jonathan on 05-17-2025 Sodium [Moles/Vol] 131 mmol/L Low 133-145 [facility] Total proteinOrdered By: Rem us Ungpraveen on 05-17-2025 Protein [Mass/Vol] 6.3 g/dL 5.9-8.4 [facility] White blood cell (WBC) count Ordered By: Rem Jonathan on 05-17-2025 WBC (Bld) [#/Vol] 7.1 10*3/uL 4.4-11.0 [facility] MR/BMS.BVSon 05-13-2025 MR/BMS.BVS Normal [facility] Cardiovascular stress test r eportOrdered By: Jarret Quiles on 05-11-2025 Study report [facility] [address] [place] [address] MR#: [id number] Acct: [id number] Name: GELY NEWMAN Rep #: [id number] : 1950 75 From: Jarret Quiles MD [...] of 55%. This note was generated with Wriggle software. It may contain incorrectwords, spelling, and punctuation that were not noted in checking the note beforesigning. 05/11/25 0830 Date _ Jarret Quiles MD CC: Dr. Jarret Quiles MD; Dr. Rishi Vasquez DO ~ Date Dictated: 05/11/25827 Date Transcribed: 05/11/25827 Roentgenology Teacher: AR Signed [facility] Work Phone: Stress Reporton 05-11-2025 Stress Report Normal [facility] Basic Metabolic Profile (BMP )on 05-08-2025 BUN/CRE 40.4 RATIO High 09-[address] [facility] Comment on above: Performed By: #### L 500.2500, L100.0500 ####[facility] [address] [place], [address] Calcium [Mass/Vol] 8.8 mg/dL Normal 7.6-11.0 [facility] Comment on above: Performed By: #### L 500.2500, L100.0500 ####[facility] [address] [place], [address] Chloride [Moles/Vol] 104 mmol/L Normal 98-108 [facility] Comment on above: Performed By: #### L 500.2500, L100.0500 ####[facility] [address] [place], [address] CO2 [Moles/Vol] 22.0 mmol/L Normal 21.0-32.[address] [facility] Comment on above: Performed By: #### L 500.2500, L100.0500 ####[facility] [address] [place], [address] Creatinine [Mass/Vol] 0.93 mg/dL Normal 0.70-1.20 [facility] Comment on above: Performed By: #### L 500.2500, L100.0500 ####[facility] [address] [place], [address] GAP 12 Normal 5-[address] [facility] Comment on above: Performed By: #### L 500.2500, L100.0500 ####[facility] [address] [place], [address] GFR/1.73 sq M.predicted among non-blacks MDRD (S/P/Bld) [Vol rate/Area] 65 mL/min/{1.73_m2} Normal >[address] [facility] Comment on above: Result Comment: mL/m in/1.73m2 CKD-EPI Creatinine Equation (2020) Performed By: #### L 500.2500, L100.0500 ####[facility] [address] [place], [address] Glucose [Mass/Vol] 197 mg/dL High 70-99 [facility] Comment on above: Performed By: #### L 500.2500, L100.0500 ####[facility] [address] [place], [address] Potassium [Moles/Vol] 4.4 mmol/L Normal 3.3-5.1 [facility] Comment on above: Performed By: #### L 500.2500, L100.0500 ####[facility] [address] [place], [address] Sodium [Moles/Vol] 138 mmol/L Normal 133-145 [facility] Comment on above: Performed By: #### L 500.2500, L100.0500 ####[facility] [address] [place], [address] Urea nitrogen [Mass/Vol] 38 mg/dL High 4-[address] [facility] Comment on above: Performed By: #### L 500.2500, L100.0500 ####[facility] [address] [place], [address] CBC-Complete Blood Cnt No Di ffon 05-08-2025 Erythrocyte distribution width (RBC) [Ratio] 14.9 % High 11.6-14.[address] [facility] Comment on above: Performed By: #### L 500.2500, L100.0500 ####[facility] [address] [place], [address] Hematocrit (Bld) [Volume fraction] 32.0 % Low 37-[address] [facility] Comment on above: Performed By: #### L 500.2500, L100.0500 ####[facility] [address] [place], [address] Hemoglobin (Bld) [Mass/Vol] 10.4 g/dL Low 12.0-15.[address] [facility] Comment on above: Performed By: #### L 500.2500, L100.0500 ####[facility] [address] [place], [address] MCH (RBC) [Entitic mass] 29.6 pg Normal 27.0-32.[address] [facility] Comment on above: Performed By: #### L 500.2500, L100.0500 ####[facility] [address] [place], [address] MCHC (RBC) [Mass/Vol] 32.5 g/dL Normal 32-36 [facility] Comment on above: Performed By: #### L 500.2500, L100.0500 ####[facility] [address] [place], [address] MCV (RBC) [Entitic vol] 91.2 fL Normal 81-[address] [facility] Comment on above: Performed By: #### L 500.2500, L100.0500 ####[facility] [address] [place], [address] Platelet mean volume (Bld) [Entitic vol] 11.8 fL Normal 6.2-12.[address] [facility] Comment on above: Performed By: #### L 500.2500, L100.0500 ####[facility] [address] [place], [address] Platelets (Bld) [#/Vol] 170 10*3/uL Normal 150-[address] [facility] Comment on above: Performed By: #### L 500.2500, L100.0500 ####[facility] [address] [place], [address] RBC (Bld) [#/Vol] 3.51 10*6/uL Low 4.2-5.4 [facility] Comment on above: Performed By: #### L 500.2500, L100.0500 ####[facility] [address] [place], [address] RDW SD 50.3 fl High 35.1-43.[address] [facility] Comment on above: Performed By: #### L 500.2500, L100.0500 ####[facility] [address] [place], [address] WBC (Bld) [#/Vol] 6.0 10*3/uL Normal 4.4-11.0 [facility] Comment on above: Performed By: #### L 500.2500, L100.0500 ####[facility] [address] [place], [address] MR/PAT.FRANCOon 05-08-2025 MR/PAT.FRANCO Normal [facility] Cardiology Visit Reporton Cardiology Visit Report Normal [facility] 05-06-2025 [facility] Tele[facility] (FAMPWS) -------- GELY NEWMAN ([id number]) 1950 F Date Time Provider Department 05/06/25 RISHI VASQUEZ FAMPWS During your visit today, we recorded the following information about you: Sara Solis RN 05/06/2025 12:30 PM Signed Pt called in and reports she went in to [facility] and they told her that her insurance doesn't cover the Glipizide 5 mg tablets without a PA. Pt states she got them before and her insurance covered them. Pt states she paid out of pocket for 5 days worth of pills. Prior Authorization Documentation Prior authorization requested for the following medication: Medication: Glipizide Provider: Sushma Escobedo NP Insurance Company Name: [employer] Medicare [employer]vantage [employer] Phone number:[phone] Patient ID number: [id number] Pharmacy Name: [facility] [place] Telephone number: [phone] Any Rodriguez LPN 05/06/2025 1:17 PM Signed Electronic PA requested. Any Rodriguez LPN 05/06/2025 1:21 PM Signed This is the PA response. Close reason: Product not covered by this plan. Prior Authorization not available. Payer: [employer] [phone] Note from payer: This drug/product is not [...] 1 tablet by mouth once daily. - Ljupjwih-Hvel-Edu-Folic Acid 18-0.4 mg tab Take 1 tablet [...] 10/24/2016 CKD (more content not included)... Normal [facility] CNOVon 04-30-2025 [facility] -------- GELY NEWMAN ([id number]) 1950 F Date Time Provider Department 04/30/25 11:20 AM LD [facility] During your visit today, we recorded the following information about you: Pulse Respiration Blood pressure Weight 77/minute 12/minute 130/60 68.9 kg Ld Escobedo APRN.CNP 04/30/2025 12:26 PM Signed HISTORY [...] wound dressing changes - Recent visit to indoor landscape architect Dr. Irene, who discussed potential surgery for [...] mellitus (HCC) Coronary artery disease Dr. Ch [employer], 90% blockage- unable to do stenting Diabetes mellitus type 2 in obese Diabetic feet (HCC) Gangrene (HCC) 2012 RIGHT FOOT Hypertension Mild non proliferative diabetic retinopathy (HCC) 06/11/2013 Both eyes, Dr. Ortiz [facility]-03/25/2020 left mild, right moderate Multiple thyroid nodules last US 01/2015 Peripheral artery disease due to Diabetes mellitus, Dr. Kwaku Moscoso Rotator cuff syndrome of left shoulder Dr. Regi Montes [facility] PAST SURGICAL HISTORY Procedure Laterality Date [...] CUFF REPAIR 03/11/[address] [facility] SLCTV CATHJ EA 1ST ORD ABDL [...] 650 m (more content not included)... Normal [facility] Thyroidon 04-27-2025 Thyroid [address] [facility] Duplex ultrasound of carotid artery reportOrdered By: Russell Clement on 04-23-2025 Study report [facility] Cardi[facility] [place] [address] [address] Carotid Duplex Ultrasound 04/20/25 1337 MR#: [id number] Acct: [id number] Name: GELY NEWMAN Rep #:[id number] : 1950 75 From: Russell Abraham Attending [...] the left vertebral artery. Procedure Carotid Duplex 90671. This is a Carotid Duplex examination using [...] Dictated: 04/20/25 1337 Date Transcribed: 04/23/25 1037 Roentgenology Teacher: Signed [facility] Work Phone: Carotid Duplex Ultrasoundon 04-20-2025 Carotid Duplex Ultrasound Normal [facility] 04-16-2025 [facility] Telephone (FAMPWS) -------- GELY NEWMAN ([id number]) 1950 F Date Time Provider Department 04/16/25 [facility]ASQUE[facility] During your visit today, we recorded the following information about you: Hina Lomeli, RN 04/16/2025 9:34 AM Signed Jessika calling from [facility] to report plan of care for patient and jail will continue visit patient 1 time a week for 5 weeks. long-term will work with patient on wound care to bilateral lower extremities. Patient is being follow by Dr. Irene for wound care. No call back needed. Hina Lomeli RN Allergies As of Date: 04/16/2025 Noted Allergy Reaction SULFA (SULFONAMIDE ANTIBIOTICS) 01/13/2013 16 - Unknown Comments: childhood Date Reviewed: 03/27/2025 Reviewed by: Rachel Jacobs MA - Fully Assessed Reason for Visit: Senior Living Plan of Care [Other] Prescriptions as of [...] 1 tablet by mouth once daily. - Pdestayt-Vbzm-Uic-Folic Acid 18-0.4 mg tab Take 1 tablet [...] [L72.3, L08.9] 02/26/2019 Coronary artery disease involving [place] heart *05/28/2019 Abnormal urine odor [R82.90] 05/28/2019 [...] Status:Closed by HINA LOMELI on 04/16/25 Normal [facility] Anion gap in Serum or Plasma Ordered By: Russell Clement on 04-15-2025 Anion gap [Moles/Vol] 13 mmol/L - [facility] BUN/creatinine ratioOrdered By: Russell Clement on 04-15-2025 Urea nitrogen/Creatinine [Mass ratio] 33.4 mg/mg High - [facility] Basic Metabolic Profile (BMP )on 04-15-2025 BUN/CRE 33.4 RATIO High [facility] Comment on above: Performed By: #### L 500.2500, L100.0500 ####[facility] [address] [place], [address] Calcium [Mass/Vol] 9.3 mg/dL Normal 7.6-11.0 [facility] Comment on above: Performed By: #### L 500.2500, L100.0500 ####[facility] [address] [place], [address] Chloride [Moles/Vol] 106 mmol/L Normal 98-108 [facility] Comment on above: Performed By: #### L 500.2500, L100.0500 ####[facility] [address] [place], [address] CO2 [Moles/Vol] 21.9 mmol/L Normal 21.0-32.[address] [facility] Comment on above: Performed By: #### L 500.2500, L100.0500 ####[facility] [address] [place], [address] Creatinine [Mass/Vol] 1.07 mg/dL Normal 0.70-1.20 [facility] Comment on above: Performed By: #### L 500.2500, L100.0500 ####[facility] [address] [place], [address] ECRCL 48.30 ml/min Low 50-[address] [facility] Comment on above: Performed By: #### L 500.2500, L100.0500 ####[facility] [address] [place], [address] GAP 13 Normal 5-[address] [facility] Comment on above: Performed By: #### L 500.2500, L100.0500 ####[facility] [address] [place], [address] GFR/1.73 sq M.predicted among non-blacks MDRD (S/P/Bld) [Vol rate/Area] 55 mL/min/{1.73_m2} Low >[address] [facility] Comment on above: Result Comment: mL/m in/1.73m2 CKD-EPI Creatinine Equation (2020) Performed By: #### L 500.2500, L100.0500 ####[facility] [address] [place], [address] Glucose [Mass/Vol] 152 mg/dL High 70-99 [facility] Comment on above: Performed By: #### L 500.2500, L100.0500 ####[facility] [address] [place], [address] Potassium [Moles/Vol] 4.9 mmol/L Normal 3.3-5.1 [facility] Comment on above: Performed By: #### L 500.2500, L100.0500 ####[facility] [address] [place], [address] Sodium [Moles/Vol] 140 mmol/L Normal 133-145 [facility] Comment on above: Performed By: #### L 500.2500, L100.0500 ####[facility] [address] [place], [address] Urea nitrogen [Mass/Vol] 36 mg/dL High 4-[address] [facility] Comment on above: Performed By: #### L 500.2500, L100.0500 ####[facility] [address] [place], [address] CBC-Complete Blood Cnt No Di ffon 04-15-2025 Erythrocyte distribution width (RBC) [Ratio] 15.8 % High 11.6-14.[address] [facility] Comment on above: Performed By: #### L 500.2500, L100.0500 ####[facility] [address] [place], [address] Hematocrit (Bld) [Volume fraction] 38.4 % Normal 37-[address] [facility] Comment on above: Performed By: #### L 500.2500, L100.0500 ####[facility] [address] [place], [address] Hemoglobin (Bld) [Mass/Vol] 12.2 g/dL Normal 12.0-15.[address] [facility] Comment on above: Performed By: #### L 500.2500, L100.0500 ####[facility] [address] [place], [address] MCH (RBC) [Entitic mass] 29.5 pg Normal 27.0-32.[address] [facility] Comment on above: Performed By: #### L 500.2500, L100.0500 ####[facility] [address] [place], [address] MCHC (RBC) [Mass/Vol] 31.8 g/dL Low 32-36 [facility] Comment on above: Performed By: #### L 500.2500, L100.0500 ####[facility] [address] [place], [address] MCV (RBC) [Entitic vol] 92.8 fL Normal 81-[address] [facility] Comment on above: Performed By: #### L 500.2500, L100.0500 ####[facility] [address] [place], [address] Platelet mean volume (Bld) [Entitic vol] 11.4 fL Normal 6.2-12.[address] [facility] Comment on above: Performed By: #### L 500.2500, L100.0500 ####[facility] [address] [place], [address] Platelets (Bld) [#/Vol] 205 10*3/uL Normal 150-[address] [facility] Comment on above: Performed By: #### L 500.2500, L100.0500 ####[facility] [address] [place], [address] RBC (Bld) [#/Vol] 4.14 10*6/uL Low 4.2-5.4 [facility] Comment on above: Performed By: #### L 500.2500, L100.0500 ####[facility] [address] [place], [address] RDW SD 53.9 fl High 35.1-43.[address] [facility] Comment on above: Performed By: #### L 500.2500, L100.0500 ####[facility] [address] [place], [address] WBC (Bld) [#/Vol] 7.7 10*3/uL Normal 4.4-11.0 [facility] Comment on above: Performed By: #### L 500.2500, L100.0500 ####[facility] [address] [place], [address] CNPNon 05-28-2025 [facility] Telephone (FAMPWS) -------- GELY NEWMAN ([id number]) 1950 F Date Time Provider Department 04/15/25 [facility] During your visit today, we recorded [...] 1 tablet by mouth once daily. - Hiuwasxc-Nlcx-Icy-Folic Acid 18-0.4 mg tab Take 1 tablet [...] [L72.3, L08.9] 02/26/2019 Coronary artery disease involving [employer] [employer] heart *05/28/2019 Abnormal urine odor [R82.90] 05/28/2019 [...] screening mammogram for malignant*12/05/2024 Encounter Status:Closed by LD ESCOBEDO on 04/15/[address] [facility] Carbon dioxide, total [Moles /volume] in Central venous bloodOrdered By: Russell Clement on 04-15-2025 CO2 [Moles/Vol] 21.9 mmol/L 21.0-32.[address] [facility] Chloride assayOrdered By: Woo Clement on 04-15-2025 Chloride [Moles/Vol] 106 mmol/L 98-108 [facility] Erythrocyte distribution wid th ratioOrdered By: Russell Clement on 04-15-2025 Erythrocyte distribution width (RBC) [Ratio] 15.8 % High 11.6-14.[address] [facility] Erythrocyte distribution wid th standard deviationOrdered By: Russell Clement on 04-15-2025 Erythrocyte distribution width (RBC) [Ratio] 53.9 fl High 35.1-43.[address] [facility] Glomerular filtration rate ( GFR) estimation/1.73 sq m using serum, plasma, or whole bOrdered By: Russell Clement on 04-15-2025 GFR/1.73 sq M.predicted among non-blacks MDRD (S/P/Bld) [Vol rate/Area] 55 mL/min/{1.73_m2} Low >[address] [facility] Comment on above: mL/min/1.73m2 CKD-EP I Creatinine Equation (2020) Hematocrit Auto (Bld) [Volum e fraction]Ordered By: Russell Clement on 04-15-2025 Hematocrit (Bld) [Volume fraction] 38.4 % 37-[address] [facility] Hemoglobin measurementOrdere d By: Russell Clement on 04-15-2025 Hemoglobin (Bld) [Mass/Vol] 12.2 g/dL 12.0-15.[address] [facility] MCV (mean corpuscular volume ) determinationOrdered By: Russell Clement on 04-15-2025 MCV (RBC) [Entitic vol] 92.8 fL 81-[address] [facility] Mean corpuscular hemoglobin (MCH) determinationOrdered By: Russell Clement on 04-15-2025 MCH (RBC) [Entitic mass] 29.5 pg 27.0-32.[address] [facility] Mean corpuscular hemoglobin concentration (MCHC) determinationOrdered By: Russell Clement on 04-15-2025 MCHC (RBC) [Mass/Vol] 31.8 g/dL Low 32-36 [facility] Mean platelet volume determi nationOrdered By: Russell Clement on 04-15-2025 Platelet mean volume (Bld) [Entitic vol] 11.4 fL 6.2-12.[address] [facility] Operative Reporton Operative Report Normal [facility] Platelet countOrdered By: Woo Clement on 04-15-2025 Platelets (Bld) [#/Vol] 205 10*3/uL 150-[address] [facility] Potassium measurement (mass/ volume)Ordered By: Russell Clement on 04-15-2025 Potassium (Unsp spec) [Mass/Vol] 4.9 mmol/L 3.3-5.[address] [facility] RBC Auto (Bld) [#/Vol]Ordere d By: Russell Clement on 04-15-2025 RBC (Bld) [#/Vol] 4.14 10*6/uL Low 4.2-5.4 [facility] Serum creatinine measurement (mass/volume)Ordered By: Russell Clement on 04-15-2025 Creatinine [Mass/Vol] 1.07 mg/dL 0.70-1.20 [facility] Serum glucose measurement (m ass/volume)Ordered By: Russell Clement on 04-15-2025 Glucose [Mass/Vol] 152 mg/dL High 70-99 [facility] Serum or plasma calcium natalia urement (mass/volume)Ordered By: Russell Clement on 04-15-2025 Calcium [Mass/Vol] 9.3 mg/dL 7.6-11.0 [facility] Serum or plasma urea nitroge n measurement (mass/volume)Ordered By: Russell Clement on 04-15-2025 Urea nitrogen [Mass/Vol] 36 mg/dL High 4-[address] [facility] Sodium levelOrdered By: Russell Clement on 04-15-2025 Sodium [Moles/Vol] 140 mmol/L 133-145 [facility] White blood cell (WBC) count Ordered By: Russell Clement on 04-15-2025 WBC (Bld) [#/Vol] 7.7 10*3/uL 4.4-11.0 [facility] CNPNon 04-10-2025 CNPN Telephone (FAMWS) -------- GELY NEWMAN ([id number]) 1950 F Date Time Provider Department 04/10/25 LD [facility] During your visit today, we recorded the following information about you: Silvestre Martinez MA 04/27/2025 9:42 AM Signed See update from pt regarding blood sugars and medication change. Please advise. ALFONSO Nicole Amanda, RN 04/27/2025 11:39 AM Signed Per providers request Pt was scheduled with Ld Escobedo NP on 04/30/25. Pt will bring [...] or 3b CKD (HCC) [N18.30] Order(s):HEMOGLOBIN A1C [QEUZR1I] Order #: [id number] FUTURE COMPREHENSIVE METABOLIC PANEL [SQCMP] Order #: [id number] FUTURE glipiZIDE (GLUCOTROL XL) 5 mg 24 [...] 1 tablet by mouth once daily. - Fspnmuoy-Flbr-Cav-Folic Acid 18-0.4 mg tab Take 1 tablet by mouth once daily. - omega-3 fatty acids 1,000 mg cap Take 1 capsule by mouth once daily. - Aspirin 81 mg Tab Take 1 tablet by mouth once daily. Take with food. Medication notes this encounter METFORMIN 500 MG TABLET >> Ld Escobedo APRN.SHIRT MARKER 04/10/2025 4:[address] solomon [...] [L72.3, L08.9] 02/26/2019 Coronary artery disease involving [employer] heart *05/28/2019 Abnormal urine odor [R82.90] 05/28/2019 [...] for prudencio (more content not included)... Normal [facility] Basic Metabolic Profile (BMP )on 04-09-2025 BUN Normal 4-[address] [facility] Comment on above: Result Comment: Canc elled via OM: Order cancelled - Patient discharged Performed By: #### L 500.2500, L100.0100 ####[facility] [address] [place], [address] BUN/CRE Normal 10-[address] [facility] Comment on above: Result Comment: Canc elled via OM: Order cancelled - Patient discharged Performed By: #### L 500.2500, L100.0100 ####[facility] [address] [place], [address] Calcium Normal 7.6-11.[address] [facility] Comment on above: Result Comment: Canc elled via OM: Order cancelled - Patient discharged Performed By: #### L 500.2500, L100.0100 ####[facility] [address] [place], [address] CL Normal 98-[address] [facility] Comment on above: Result Comment: Canc elled via OM: Order cancelled - Patient discharged Performed By: #### L 500.2500, L100.0100 ####[facility] [address] [place], [address] CO2 Normal 21.0-32.[address] [facility] Comment on above: Result Comment: Canc elled via OM: Order cancelled - Patient discharged Performed By: #### L 500.2500, L100.0100 ####[facility] [address] [place], [address] CREAT,SERUM Normal 0.70-1.[address] [facility] Comment on above: Result Comment: Canc elled via OM: Order cancelled - Patient discharged Performed By: #### L 500.2500, L100.0100 ####[facility] [address] [place], [address] eGFR Normal >[address] [facility] Comment on above: Result Comment: Canc elled via OM: Order cancelled - Patient discharged Performed By: #### L 500.2500, L100.0100 ####[facility] [address] [place], [address] GAP Normal 5-[address] [facility] Comment on above: Result Comment: Canc elled via OM: Order cancelled - Patient discharged Performed By: #### L 500.2500, L100.0100 ####[facility] [address] [place], [address] GLU Normal 70-[address] [facility] Comment on above: Result Comment: Canc elled via OM: Order cancelled - Patient discharged Performed By: #### L 500.2500, L100.0100 ####[facility] [address] [place], [address] Potassium Normal 3.3-5.[address] [facility] Comment on above: Result Comment: Canc elled via OM: Order cancelled - Patient discharged Performed By: #### L 500.2500, L100.0100 ####[facility] [address] [place], [address] Basic Metabolic Profile (BMP) Normal 133-[address] [facility] Comment on above: Result Comment: Canc elled via OM: Order cancelled - Patient discharged Performed By: #### L 500.2500, L100.0100 ####[facility] [address] [place], [address] CBC W/Diff, Automatedon 05-2 Absolute Neut Normal 2.0-7.[address] [facility] Comment on above: Result Comment: Canc elled via OM: Order cancelled - Patient discharged Performed By: #### L 500.2500, L100.0100 ####[facility] [address] [place], [address] HCT Normal 37-[address] [facility] Comment on above: Result Comment: Canc elled via OM: Order cancelled - Patient discharged Performed By: #### L 500.2500, L100.0100 ####[facility] [address] [place], [address] HGB Normal 12.0-15.[address] [facility] Comment on above: Result Comment: Canc elled via OM: Order cancelled - Patient discharged Performed By: #### L 500.2500, L100.0100 ####[facility] [address] [place], [address] MCH Normal 27.0-32.[address] [facility] Comment on above: Result Comment: Canc elled via OM: Order cancelled - Patient discharged Performed By: #### L 500.2500, L100.0100 ####[facility] [address] [place], [address] MCHC Normal 32-[address] [facility] Comment on above: Result Comment: Canc elled via OM: Order cancelled - Patient discharged Performed By: #### L 500.2500, L100.0100 ####[facility] [address] [place], [address] MCV Normal 81-[address] [facility] Comment on above: Result Comment: Canc elled via OM: Order cancelled - Patient discharged Performed By: #### L 500.2500, L100.0100 ####[facility] [address] [place], [address] NEUT% Normal 47-[address] [facility] Comment on above: Result Comment: Canc elled via OM: Order cancelled - Patient discharged Performed By: #### L 500.2500, L100.0100 ####[facility] [address] [place], [address] PLT Normal 150-[address] [facility] Comment on above: Result Comment: Canc elled via OM: Order cancelled - Patient discharged Performed By: #### L 500.2500, L100.0100 ####[facility] [address] [place], [address] RBC Normal 4.2-5.[address] [facility] Comment on above: Result Comment: Canc elled via OM: Order cancelled - Patient discharged Performed By: #### L 500.2500, L100.0100 ####[facility] [address] [place], [address] RDW CV Normal 11.6-14.[address] [facility] Comment on above: Result Comment: Canc elled via OM: Order cancelled - Patient discharged Performed By: #### L 500.2500, L100.0100 ####[facility] [address] [place], [address] RDW SD Normal 35.1-43.[address] [facility] Comment on above: Result Comment: Canc elled via OM: Order cancelled - Patient discharged Performed By: #### L 500.2500, L100.0100 ####[facility] [address] [place], [address] WBC Normal 4.4-11.[address] [facility] Comment on above: Result Comment: Canc elled via OM: Order cancelled - Patient discharged Performed By: #### L 500.2500, L100.0100 ####[facility] [address] [place], [address] MR/BMS.BVSon 04-03-2025 MR/BMS.BVS Normal [facility] Basic Metabolic Profile (BMP )on 04-02-2025 BUN Normal 4-[address] [facility] Comment on above: Result Comment: Canc elled via OM: Order cancelled - Patient discharged Performed By: #### L 500.2500, L100.0100 ####[facility] [address] [place], [address] BUN/CRE Normal 10-[address] [facility] Comment on above: Result Comment: Canc elled via OM: Order cancelled - Patient discharged Performed By: #### L 500.2500, L100.0100 ####[facility] [address] [place], [address] Calcium Normal 7.6-11.[address] [facility] Comment on above: Result Comment: Canc elled via OM: Order cancelled - Patient discharged Performed By: #### L 500.2500, L100.0100 ####[facility] [address] [place], [address] CL Normal 98-[address] [facility] Comment on above: Result Comment: Canc elled via OM: Order cancelled - Patient discharged Performed By: #### L 500.2500, L100.0100 ####[facility] [address] [place], [address] CO2 Normal 21.0-32.[address] [facility] Comment on above: Result Comment: Canc elled via OM: Order cancelled - Patient discharged Performed By: #### L 500.2500, L100.0100 ####[facility] [address] [place], [address] CREAT,SERUM Normal 0.70-1.[address] [facility] Comment on above: Result Comment: Canc elled via OM: Order cancelled - Patient discharged Performed By: #### L 500.2500, L100.0100 ####[facility] [address] [place], [address] eGFR Normal >[address] [facility] Comment on above: Result Comment: Canc elled via OM: Order cancelled - Patient discharged Performed By: #### L 500.2500, L100.0100 ####[facility] [address] [place], [address] GAP Normal 5-[address] [facility] Comment on above: Result Comment: Canc elled via OM: Order cancelled - Patient discharged Performed By: #### L 500.2500, L100.0100 ####[facility] [address] [place], [address] GLU Normal 70-[address] [facility] Comment on above: Result Comment: Canc elled via OM: Order cancelled - Patient discharged Performed By: #### L 500.2500, L100.0100 ####[facility] [address] [place], [address] Potassium Normal 3.3-5.[address] [facility] Comment on above: Result Comment: Canc elled via OM: Order cancelled - Patient discharged Performed By: #### L 500.2500, L100.0100 ####[facility] [address] [place], [address] Basic Metabolic Profile (BMP) Normal 133-[address] [facility] Comment on above: Result Comment: Canc elled via OM: Order cancelled - Patient discharged Performed By: #### L 500.2500, L100.0100 ####[facility] [address] [place], [address] CBC W/Diff, Automatedon 05-1 Absolute Neut Normal 2.0-7.[address] [facility] Comment on above: Result Comment: Canc elled via OM: Order cancelled - Patient discharged Performed By: #### L 500.2500, L100.0100 ####[facility] [address] [place], [address] HCT Normal 37-[address] [facility] Comment on above: Result Comment: Canc elled via OM: Order cancelled - Patient discharged Performed By: #### L 500.2500, L100.0100 ####[facility] [address] [place], [address] HGB Normal 12.0-15.[address] [facility] Comment on above: Result Comment: Canc elled via OM: Order cancelled - Patient discharged Performed By: #### L 500.2500, L100.0100 ####[facility] [address] [place], [address] MCH Normal 27.0-32.[address] [facility] Comment on above: Result Comment: Canc elled via OM: Order cancelled - Patient discharged Performed By: #### L 500.2500, L100.0100 ####[facility] [address] [place], [address] MCHC Normal 32-[address] [facility] Comment on above: Result Comment: Canc elled via OM: Order cancelled - Patient discharged Performed By: #### L 500.2500, L100.0100 ####[facility] [address] [place], [address] MCV Normal 81-[address] [facility] Comment on above: Result Comment: Canc elled via OM: Order cancelled - Patient discharged Performed By: #### L 500.2500, L100.0100 ####[facility] [address] [place], [address] NEUT% Normal 47-[address] [facility] Comment on above: Result Comment: Canc elled via OM: Order cancelled - Patient discharged Performed By: #### L 500.2500, L100.0100 ####[facility] [address] [place], [address] PLT Normal 150-[address] [facility] Comment on above: Result Comment: Canc elled via OM: Order cancelled - Patient discharged Performed By: #### L 500.2500, L100.0100 ####[facility] [address] [place], [address] RBC Normal 4.2-5.[address] [facility] Comment on above: Result Comment: Canc elled via OM: Order cancelled - Patient discharged Performed By: #### L 500.2500, L100.0100 ####[facility] [address] [place], [address] RDW CV Normal 11.6-14.[address] [facility] Comment on above: Result Comment: Canc elled via OM: Order cancelled - Patient discharged Performed By: #### L 500.2500, L100.0100 ####[facility] [address] [place], [address] RDW SD Normal 35.1-43.[address] [facility] Comment on above: Result Comment: Canc elled via OM: Order cancelled - Patient discharged Performed By: #### L 500.2500, L100.0100 ####[facility] [address] [place], [address] WBC Normal 4.4-11.[address] [facility] Comment on above: Result Comment: Canc elled via OM: Order cancelled - Patient discharged Performed By: #### L 500.2500, L100.0100 ####[facility] [address] [place], [address] CNOVon 03-27-2025 [facility] GELY NEWMAN ([id number]) 1950 F Date Time Provider Department 03/27/25 10:00 AM YUMIKO WHITEHEAD During your visit today, we recorded the following information about you: Pulse Respiration Blood pressure 74/minute 16/minute 134/68 Yumiko Whitehead APRN.SHIRT MARKER 03/27/2025 11:01 AM Signed 03/26/2025 Patient presents with: ER F/U: [facility] ED -03/20/25 Multiple falls, gangrene SADIE feet SUBJECTIVE: This is a 75 year old that is here today for Above Complaints. HOSPITAL/ER FOLLOW UP: Reason for visit: Recurrent falls, Which facility: [facility] transferred to [facility] Date of visit: 03/07/2025-03/11/2025 [facility] then to TCU 03/11/2025-03/19/2025 Diagnosis: UTI, [...] mellitus (HCC) Coronary artery disease Dr. Ch [employer], 90% blockage- unable to do stenting Diabetes mellitus type 2 in obese Diabetic feet (HCC) Gangrene (HCC) 2012 RIGHT FOOT Hypertension Mild non proliferative diabetic retinopathy (HCC) 06/11/2013 Both eyes, Dr. Ortiz [facility]-03/25/2020 left mild, right moderate Multiple thyroid nodules last US 01/2015 Peripheral artery disease (HCC) due to Diabetes mellitus, Dr. Kwaku Moscoso Rotator cuff syndrome of left shoulder Dr. Deluna [facility] ALLERGIES Sulfa (Sulfonamide Antibiotics) MEDICATIONS Current [...] Take 1 tablet by mouth once daily. Uahterkv-Tsor-Xct-Folic Acid 18-0.4 mg tab Take 1 tablet [...] due on (more content not included)... [facility] CNPN Telephone (JOHANAWS) -------- GELY NEWMAN ([id number]) 1950 F Date Time Provider Department 03/27/25 YUMIKO WHITEHEAD During your visit today, we recorded the following information about you: Yumiko Whitehead APRN.CNP 03/27/2025 10:59 AM Signed Please fax printed order for jordan to [employer]. In my outbox. Yumiko Whitehead APRN.Michaela Mofeftt MA 03/30/2025 10:04 AM Signed Order, OV, discharge summary faxed to [facility]. Michaela Millan MA Allergies As of Date: [...] 1 tablet by mouth once daily. - Hyfxikfi-Cdco-Ukx-Folic Acid 18-0.4 mg tab Take 1 tablet [...] [L72.3, L08.9] 02/26/2019 Coronary artery disease involving [employer] heart *05/28/2019 Abnormal urine odor [R82.90] 05/28/2019 [...] Status:Closed by MICHAELA MILLAN on 03/30/25 Normal [facility] Basic Metabolic Profile (BMP )on 03-26-2025 BUN Normal 4-[address] [facility] Comment on above: Result Comment: Canc elled via OM: Order cancelled - Patient discharged Performed By: #### L 100.0100, L500.2500 ####[facility] [address] [place], [address] BUN/CRE Normal 10-[address] [facility] Comment on above: Result Comment: Canc elled via OM: Order cancelled - Patient discharged Performed By: #### L 100.0100, L500.2500 ####[facility] [address] [place], [address] Calcium Normal 7.6-11.[address] [facility] Comment on above: Result Comment: Canc elled via OM: Order cancelled - Patient discharged Performed By: #### L 100.0100, L500.2500 ####[facility] [address] [place], [address] CL Normal 98-[address] [facility] Comment on above: Result Comment: Canc elled via OM: Order cancelled - Patient discharged Performed By: #### L 100.0100, L500.2500 ####[facility] [address] [place], [address] CO2 Normal 21.0-32.[address] [facility] Comment on above: Result Comment: Canc elled via OM: Order cancelled - Patient discharged Performed By: #### L 100.0100, L500.2500 ####[facility] [address] [place], [address] CREAT,SERUM Normal 0.70-1.[address] [facility] Comment on above: Result Comment: Canc elled via OM: Order cancelled - Patient discharged Performed By: #### L 100.0100, L500.2500 ####[facility] [address] [place], [address] eGFR Normal >[address] [facility] Comment on above: Result Comment: Canc elled via OM: Order cancelled - Patient discharged Performed By: #### L 100.0100, L500.2500 ####[facility] [address] [place], [address] GAP Normal 5-[address] [facility] Comment on above: Result Comment: Canc elled via OM: Order cancelled - Patient discharged Performed By: #### L 100.0100, L500.2500 ####[facility] [address] [place], [address] GLU Normal 70-[address] [facility] Comment on above: Result Comment: Canc elled via OM: Order cancelled - Patient discharged Performed By: #### L 100.0100, L500.2500 ####[facility] [address] [place], [address] Potassium Normal 3.3-5.[address] [facility] Comment on above: Result Comment: Canc elled via OM: Order cancelled - Patient discharged Performed By: #### L 100.0100, L500.2500 ####[facility] [address] [place], [address] Basic Metabolic Profile (BMP) Normal 133-[address] [facility] Comment on above: Result Comment: Canc elled via OM: Order cancelled - Patient discharged Performed By: #### L 100.0100, L500.2500 ####[facility] [address] [place], [address] CBC W/Diff, Automatedon 05-0 -2024 Absolute Neut Normal 2.0-7.[address] [facility] Comment on above: Result Comment: Canc elled via OM: Order cancelled - Patient discharged Performed By: #### L 100.0100, L500.2500 ####[facility] [address] [place], [address] HCT Normal 37-[address] [facility] Comment on above: Result Comment: Canc elled via OM: Order cancelled - Patient discharged Performed By: #### L 100.0100, L500.2500 ####[facility] [address] [place], [address] HGB Normal 12.0-15.[address] [facility] Comment on above: Result Comment: Canc elled via OM: Order cancelled - Patient discharged Performed By: #### L 100.0100, L500.2500 ####[facility] [address] [place], [address] MCH Normal 27.0-32.[address] [facility] Comment on above: Result Comment: Canc elled via OM: Order cancelled - Patient discharged Performed By: #### L 100.0100, L500.2500 ####[facility] [address] [place], [address] MCHC Normal 32-[address] [facility] Comment on above: Result Comment: Canc elled via OM: Order cancelled - Patient discharged Performed By: #### L 100.0100, L500.2500 ####[facility] [address] [place], [address] MCV Normal 81-[address] [facility] Comment on above: Result Comment: Canc elled via OM: Order cancelled - Patient discharged Performed By: #### L 100.0100, L500.2500 ####[facility] [address] [place], [address] NEUT% Normal 47-[address] [facility] Comment on above: Result Comment: Canc elled via OM: Order cancelled - Patient discharged Performed By: #### L 100.0100, L500.2500 ####[facility] [address] [place], [address] PLT Normal 150-[address] [facility] Comment on above: Result Comment: Canc elled via OM: Order cancelled - Patient discharged Performed By: #### L 100.0100, L500.2500 ####[facility] [address] [place], [address] RBC Normal 4.2-5.[address] [facility] Comment on above: Result Comment: Canc elled via OM: Order cancelled - Patient discharged Performed By: #### L 100.0100, L500.2500 ####[facility] [address] [place], [address] RDW CV Normal 11.6-14.[address] [facility] Comment on above: Result Comment: Canc elled via OM: Order cancelled - Patient discharged Performed By: #### L 100.0100, L500.2500 ####[facility] [address] [place], [address] RDW SD Normal 35.1-43.[address] [facility] Comment on above: Result Comment: Canc elled via OM: Order cancelled - Patient discharged Performed By: #### L 100.0100, L500.2500 ####[facility] [address] [place], [address] WBC Normal 4.4-11.[address] [facility] Comment on above: Result Comment: Canc elled via OM: Order cancelled - Patient discharged Performed By: #### L 100.0100, L500.2500 ####[facility] [address] [place], [address] CNPChandrika 03-26-2025 MARKN Telephone (FAMPWS) -------- GELY NEWMAN ([id number]) 1950 F Date Time Provider Department 03/26/25 RISHI VASQUEZ FAMPWS During your visit today, we recorded the following information about you: Lebron Jacome, RN 03/26/2025 12:50 PM Signed [facility] HH- reporting updated POC: plans to [...] is going to talk to provider at [facility] tomorrow about getting a front wheeled walker. No call back needed if pcp agrees. Clary Andres APRN.MARK 03/26/2025 1:31 PM Signed Agree. BP will be reassessed at appointment tomorrow. Let us know if not addressed at appointment tomorrow. Thank you, Clary Andres APRN.SHIRT MARKER Allergies As of Date: 03/26/2025 Noted Allergy Reaction SULFA (SULFONAMIDE ANTIBIOTICS) 01/13/2013 18 - Unknown Comments: childhood Date Reviewed: 12/05/2024 Reviewed by: Annmarie López LPN - Fully [...] 1 tablet by mouth once daily. - Wvcywhjm-Hqxo-Shy-Folic Acid 18-0.4 mg tab Take 1 tablet [...] [L72.3, L08.9] 02/26/2019 Coronary artery disease involving [place] heart *05/28/2019 Abnormal urine odor [R82.90] 05/28/2019 [...] Encounter Status:Closed by SELMA GALEANO on 03/26/25 [facility] 03-24-2025 [facility] Tele[facility] ([facility] -------- GELY NEWMAN ([id number]) 1950 F Date Time Provider Department 03/24[facility] During your visit today, we recorded the following information about you: Clemencia Chapman, GORGE 03/24/2025 3:02 PM Signed [facility] calling from [facility] to report plan of care [...] Comments: childhood Date Reviewed: 12/05/2024 Reviewed by: Annmarie López LPN - Fully Assessed Reason for Visit: [facility] PT POC [Other] Prescriptions as of [...] 1 tablet by mouth once daily. - Pgntiquh-Omaw-Yva-Folic Acid 18-0.4 mg tab Take 1 tablet [...] [L72.3, L08.9] 02/26/2019 Coronary artery disease involving [place] heart *05/28/2019 Abnormal urine odor [R82.90] 05/28/2019 [...] Encounter Status:Closed by CLE[facility]MAN [facility] (FAMPWS[facility] -------- GELY NEWMAN ([id number]) 1950 F Date Time Provider Department 03/23/25 [facility] During your visit today, we recorded the following information about you: Melly Pinon LPN 03/23/2025 1:34 PM Signed Tatum with [facility] Nursing calls to report she saw [...] Comments: childhood Date Reviewed: 12/05/2024 Reviewed by: Annmarie López LPN - Fully [...] 1 tablet by mouth once daily. - Awdrbfhc-Vbsb-Ual-Folic Acid 18-0.4 mg tab Take 1 tablet [...] [L72.3, L08.9] 02/26/2019 Coronary artery disease involving [place] heart *05/28/2019 Abnormal urine odor [R82.90] 05/28/2019 [...] Status:Closed by JESENIA MCGEE on 03/24/25 Normal [facility] Bedside Glucoseon 03-20-2025 FINGERSTICK GLU 155 mg/dL High 74-[address] [facility] Comment on above: Result Comment: JEREMIAS PADILLA OF PATIENT CARE PER NURSING PROTOCOL Performed By: #### L 501.080 ####[facility] [address] [place], [address] [facility] C[facility]N Telephone ([facility]) -------- GELY NEWMAN ([id number]) 1950 F Date Time Provider Department 03/20/25 RISHI VASQUEZ [facility] During your visit today, we recorded the following information about you: Clemencia Chapman RN 03/20/2025 12:55 PM Signed Yvonne with [facility] HH calls to ask if provider would be willing to follow their discharge orders for SN, PT, OT. Patient discharged home today from [facility] TCU after having hospitalization and rehab for falls and UTI. Call back number is [phone]. GORGE Bo Jordan L, DO 03/20/2025 5:03 PM Signed Yes DO Kit Ernst Krystle, RN 03/23/2025 8:30 AM Signed Call placed to Yvonne and notified of below. Clemencia Chapman RN Allergies As of Date: 03/20/2025 Noted Allergy Reaction SULFA (SULFONAMIDE ANTIBIOTICS) 01/13/2013 18 - Unknown Comments: childhood Date Reviewed: 12/05/2024 Reviewed by: Annmarie López LPN - Fully [...] 1 tablet by mouth once daily. - Hsmlzzak-Rvva-Udg-Folic Acid 18-0.4 mg tab Take 1 tablet [...] [L72.3, L08.9] 02/26/2019 Coronary artery disease involving [place] heart *05/28/2019 Abnormal urine odor [R82.90] 05/28/2019 [...] Status:Closed by CLEMENCIA CHAPMAN on 03/23/25 Normal [facility] Glucose measurement at [facility] deOrdered By: Phong Solomon on 03-20-2025 Glucose [Mass/Vol] 155 mg/dL High 74-106 [facility] Comment on above: MANAGEMENT OF PATIEN T CARE PER NURSING PROTOCOL Absolute lymphocyte countOrd ered By: Phong Solomon on 03-19-2025 Lymphocytes Auto (Unsp spec) [#/Vol] 1.25 10*3/uL 0.83-4.[address] [facility] Absolute neutrophil countOrd ered By: Phong Solomon on 03-19-2025 Neutrophils (Bld) [#/Vol] 3.5 10*3/uL 2.0-7.[address] [facility] Anion gap in Serum or Plasma Ordered By: Phong Solomon on 03-19-2025 Anion gap [Moles/Vol] 8 mmol/L 5-15 [facility] Automated lymphocyte count a s percentage of total leukocytesOrdered By: Phong Solomon on 03-19-2025 Lymphocytes/100 WBC Auto (Unsp spec) 22.0 % 19-[address] [facility] BRCon 03-19-[address] [facility] Comment on above: Result Comment: [id number] AP RC TRANSFUSED 03/19/25 [id number] AP RC TRANSFUSED 03/19/25 1004 Performed By: #### B RC, BTS ####[facility] [address] [place], [address] BUN/creatinine ratioOrdered By: Phong Solomon on 03-19-2025 Urea nitrogen/Creatinine [Mass ratio] 22.6 mg/mg High 10-[address] [facility] Basic Metabolic Profile (BMP )on 03-19-2025 BUN/CRE 22.6 RATIO High 10-[address] [facility] Comment on above: Performed By: #### L 500.2500, L100.0100 ####[facility] [address] [place], [address] Calcium [Mass/Vol] 8.6 mg/dL Normal 7.6-11.0 [facility] Comment on above: Performed By: #### L 500.2500, L100.0100 ####[facility] [address] [place], [address] Chloride [Moles/Vol] 112 mmol/L High 98-108 [facility] Comment on above: Performed By: #### L 500.2500, L100.0100 ####[facility] [address] [place], [address] CO2 [Moles/Vol] 22.1 mmol/L Normal 21.0-32.[address] [facility] Comment on above: Performed By: #### L 500.2500, L100.0100 ####[facility] [address] [place], [address] Creatinine [Mass/Vol] 1.47 mg/dL High 0.70-1.20 [facility] Comment on above: Performed By: #### L 500.2500, L100.0100 ####[facility] [address] [place], [address] ECRCL 35.30 ml/min Low 50-[address] [facility] Comment on above: Performed By: #### L 500.2500, L100.0100 ####[facility] [address] [place], [address] GAP 8 Normal 5-[address] [facility] Comment on above: Performed By: #### L 500.2500, L100.0100 ####[facility] [address] [place], [address] GFR/1.73 sq M.predicted among non-blacks MDRD (S/P/Bld) [Vol rate/Area] 37 mL/min/{1.73_m2} Low >[address] [facility] Comment on above: Result Comment: mL/m in/1.73m2 CKD-EPI Creatinine Equation (2020) Performed By: #### L 500.2500, L100.0100 ####[facility] [address] [place], [address] Glucose [Mass/Vol] 111 mg/dL High 70-99 [facility] Comment on above: Performed By: #### L 500.2500, L100.0100 ####[facility] [address] [place], [address] Potassium [Moles/Vol] 4.2 mmol/L Normal 3.3-5.1 [facility] Comment on above: Performed By: #### L 500.2500, L100.0100 ####[facility] [address] [place], [address] Sodium [Moles/Vol] 142 mmol/L Normal 133-145 [facility] Comment on above: Performed By: #### L 500.2500, L100.0100 ####[facility] [address] [place], [address] Urea nitrogen [Mass/Vol] 33 mg/dL High 4-[address] [facility] Comment on above: Performed By: #### L 500.2500, L100.0100 ####[facility] [address] [place], [address] Basophil percentageOrdered B y: Phong Servando on 03-19-2025 Basophils/100 WBC (Bld) 1.4 % High 0-[address] [facility] Bedside Glucoseon 03-19-2025 FINGERSTICK GLU 230 mg/dL High 74-[address] [facility] Comment on above: Result Comment: JEREMIAS GEMENT OF PATIENT CARE PER NURSING PROTOCOL Performed By: #### L 501.080 ####[facility] [address] [place], [address] FINGERSTICK GLU 330 mg/dL High 74-[address] [facility] Comment on above: Result Comment: JEREMIAS GEMENT OF PATIENT CARE PER NURSING PROTOCOL Performed By: #### L 501.080 ####[facility] [address] [place], [address] FINGERSTICK GLU 238 mg/dL High 74-[address] [facility] Comment on above: Result Comment: JEREMIAS GEMENT OF PATIENT CARE PER NURSING PROTOCOL Performed By: #### L 501.080 ####[facility] [address] [place], [address] FINGERSTICK GLU 64 mg/dL Low 74-[address] [facility] Comment on above: Result Comment: JEREMIAS GEMENT OF PATIENT CARE PER NURSING PROTOCOL Performed By: #### L 501.080 ####[facility] [address] [place], [address] FINGERSTICK GLU 103 mg/dL Normal 74-[address] [facility] Comment on above: Result Comment: JEREMIAS GEMENT OF PATIENT CARE PER NURSING PROTOCOL Performed By: #### L 501.080 ####[facility] [address] [place], [address] FINGERSTICK GLU 177 mg/dL High 74-[address] [facility] Comment on above: Result Comment: JEREMIAS GEMENT OF PATIENT CARE PER NURSING PROTOCOL Performed By: #### L 501.080 ####[facility] [address] [place], [address] FINGERSTICK GLU 106 mg/dL Normal 74-[address] [facility] Comment on above: Result Comment: JEREMIAS GEMENT OF PATIENT CARE PER NURSING PROTOCOL Performed By: #### L 501.080 ####[facility] [address] [place], [address] CBC W/Diff, Automatedon 05-0 -2024 Absolute Lymph 1.25 X10 3/uL Normal 0.83-4.[address] [facility] Comment on above: Performed By: #### L 500.2500, L100.0100 ####[facility] [address] [place], [address] Absolute Neut 3.5 X10 3/uL Normal 2.0-7.[address] [facility] Comment on above: Performed By: #### L 500.2500, L100.0100 ####[facility] [address] [place], [address] Basophils/100 WBC (Bld) 1.4 % High 0-[address] [facility] Comment on above: Performed By: #### L 500.2500, L100.0100 ####[facility] [address] [place], [address] Eosinophils/100 WBC (Bld) 3.5 % Normal 0-[address] [facility] Comment on above: Performed By: #### L 500.2500, L100.0100 ####[facility] [address] [place], [address] Erythrocyte distribution width (RBC) [Ratio] 16.2 % High 11.6-14.[address] [facility] Comment on above: Performed By: #### L 500.2500, L100.0100 ####[facility] [address] [place], [address] Hematocrit (Bld) [Volume fraction] 24.1 % Low 37-[address] [facility] Comment on above: Performed By: #### L 500.2500, L100.0100 ####[facility] [address] [place], [address] Hemoglobin (Bld) [Mass/Vol] 7.6 g/dL Low 12.0-15.[address] [facility] Comment on above: Performed By: #### L 500.2500, L100.0100 ####[facility] [address] [place], [address] IG% 0.400 Normal 0.0-0.[address] [facility] Comment on above: Result Comment: IG% - Immature Granulocytes (promyelocytes, myelocytes andmetamyelocytes) > 1% indicates that a LEFT SHIFT is Present. Performed By: #### L 500.2500, L100.0100 ####[facility] [address] [place], [address] Lymphocytes/100 WBC (Bld) 22.0 % Normal 19-[address] [facility] Comment on above: Performed By: #### L 500.2500, L100.0100 ####[facility] [address] [place], [address] MCH (RBC) [Entitic mass] 29.1 pg Normal 27.0-32.[address] [facility] Comment on above: Performed By: #### L 500.2500, L100.0100 ####[facility] [address] [place], [address] MCHC (RBC) [Mass/Vol] 31.5 g/dL Low 32-36 [facility] Comment on above: Performed By: #### L 500.2500, L100.0100 ####[facility] [address] [place], [address] MCV (RBC) [Entitic vol] 92.3 fL Normal 81-[address] [facility] Comment on above: Performed By: #### L 500.2500, L100.0100 ####[facility] [address] [place], [address] Monocytes/100 WBC (Bld) 11.1 % High 0-[address] [facility] Comment on above: Performed By: #### L 500.2500, L100.0100 ####[facility] [address] [place], [address] Neutrophils/100 WBC (Bld) 61.6 % Normal 47-[address] [facility] Comment on above: Performed By: #### L 500.2500, L100.0100 ####[facility] [address] [place], [address] Nucleated RBC (Bld) [#/Vol] 0 10*3/uL Normal 0-[address] [facility] Comment on above: Performed By: #### L 500.2500, L100.0100 ####[facility] [address] [place], [address] Platelet mean volume (Bld) [Entitic vol] 11.7 fL Normal 6.2-12.[address] [facility] Comment on above: Performed By: #### L 500.2500, L100.0100 ####[facility] [address] [place], [address] Platelets (Bld) [#/Vol] 159 10*3/uL Normal 150-[address] [facility] Comment on above: Performed By: #### L 500.2500, L100.0100 ####[facility] [address] [place], [address] RBC (Bld) [#/Vol] 2.61 10*6/uL Low 4.2-5.4 [facility] Comment on above: Performed By: #### L 500.2500, L100.0100 ####[facility] [address] [place], [address] RDW SD 52.6 fl High 35.1-43.[address] [facility] Comment on above: Performed By: #### L 500.2500, L100.0100 ####[facility] [address] [place], [address] WBC (Bld) [#/Vol] 5.7 10*3/uL Normal 4.4-11.0 [facility] Comment on above: Performed By: #### L 500.2500, L100.0100 ####[facility] [address] [place], [address] CTA Abd w/Runoff W/WO Contra ston 03-19-2025 CTA Abd w/Runoff W/WO Contrast Normal [facility] Carbon dioxide, total [Moles /volume] in Central venous bloodOrdered By: Phong Solomon on 03-19-2025 CO2 [Moles/Vol] 22.1 mmol/L 21.0-32.[address] [facility] Chloride assayOrdered By: Addy Solomon on 03-19-2025 Chloride [Moles/Vol] 112 mmol/L High 98-108 [facility] Eosinophil percentageOrdered By: Phong Solomon on 03-19-2025 Eosinophils/100 WBC (Bld) 3.5 % 0-[address] [facility] Erythrocyte distribution wid th ratioOrdered By: Phong Solomon on 03-19-2025 Erythrocyte distribution width (RBC) [Ratio] 16.2 % High 11.6-14.[address] [facility] Erythrocyte distribution wid th standard deviationOrdered By: Phong Solomon on 03-19-2025 Erythrocyte distribution width (RBC) [Ratio] 52.6 fl High 35.1-43.[address] [facility] Glomerular filtration rate ( GFR) estimation/1.73 sq m using serum, plasma, or whole bOrdered By: Phong Solomon on 03-19-2025 GFR/1.73 sq M.predicted among non-blacks MDRD (S/P/Bld) [Vol rate/Area] 37 mL/min/{1.73_m2} Low >[address] [facility] Comment on above: mL/min/1.73m2 CKD-EP I Creatinine Equation (2020) Hematocrit Auto (Bld) [Volum e fraction]Ordered By: Phong Solomon on 03-19-2025 Hematocrit (Bld) [Volume fraction] 24.1 % Low 37-[address] [facility] Hemoglobin measurementOrdere d By: Phong Solomon on 03-19-2025 Hemoglobin (Bld) [Mass/Vol] 7.6 g/dL Low 12.0-15.[address] [facility] Immature granulocytes/100 WB C Auto (Bld)Ordered By: Phong Solomon 03-19-2025 Immature granulocytes/100 WBC (Bld) 0.400 % 0.0-0.[address] [facility] Comment on above: IG% - Immature Granu locytes (promyelocytes, myelocytes and metamyelocytes) > 1% indicates that a LEFT SHIFT is Present. MCV (mean corpuscular volume ) determinationOrdered By: Phong Solomon on 03-19-2025 MCV (RBC) [Entitic vol] 92.3 fL 81-[address] [facility] Mean corpuscular hemoglobin (MCH) determinationOrdered By: Phong Solomon 03-19-2025 MCH (RBC) [Entitic mass] 29.1 pg 27.0-32.[address] [facility] Mean corpuscular hemoglobin concentration (MCHC) determinationOrdered By: Phong Solomon 03-19-2025 MCHC (RBC) [Mass/Vol] 31.5 g/dL Low 32-36 [facility] Mean platelet volume determi nationOrdered By: Phong Solomon on 03-19-2025 Platelet mean volume (Bld) [Entitic vol] 11.7 fL 6.2-12.[address] [facility] Monocyte percentageOrdered B y: Phong Solomon on 03-19-2025 Monocytes/100 WBC (Bld) 11.1 % High 0-[address] [facility] Neutrophil percentageOrdered By: Phong Solomon on 03-19-2025 Neutrophils/100 WBC (Bld) 61.6 % 47-[address] [facility] Nucleated red blood cell per centageOrdered By: Phong Solomon on 03-19-2025 Nucleated RBC/100 WBC (Bld) [Ratio] 0 % 0-[address] [facility] Platelet countOrdered By: Addy Solomon on 03-19-2025 Platelets (Bld) [#/Vol] 159 10*3/uL 150-[address] [facility] Potassium measurement (mass/ volume)Ordered By: Phong Solomon on 03-19-2025 Potassium (Unsp spec) [Mass/Vol] 4.2 mmol/L 3.3-5.[address] [facility] RBC Auto (Bld) [#/Vol]Ordere d By: Phong Solomon on 03-19-2025 RBC (Bld) [#/Vol] 2.61 10*6/uL Low 4.2-5.4 [facility] Serum creatinine measurement (mass/volume)Ordered By: Phong Solomon on 03-19-2025 Creatinine [Mass/Vol] 1.47 mg/dL High 0.70-1.20 [facility] Serum glucose measurement (m ass/volume)Ordered By: Phong Solomon on 03-19-2025 Glucose [Mass/Vol] 111 mg/dL High 70-99 [facility] Serum or plasma calcium natalia urement (mass/volume)Ordered By: Phong Solomon on 03-19-2025 Calcium [Mass/Vol] 8.6 mg/dL 7.6-11.0 [facility] Serum or plasma urea nitroge n measurement (mass/volume)Ordered By: Phong Solomon on 03-19-2025 Urea nitrogen [Mass/Vol] 33 mg/dL High 4-[address] [facility] Sodium levelOrdered By: Phong Solomon on 03-19-2025 Sodium [Moles/Vol] 142 mmol/L 133-145 [facility] Stool Occult Blood iFOBon STOB Negative Normal [facility] Comment on above: Performed By: #### M 100.7900 ####[facility] [address] [place], [place], [address] Stool gastrointestinal hemog lobin detection by immunologic methodOrdered By: Phong Solomon on 03-19-2025 Lower GI hemoglobin IA Ql (Stl) [facility] Type AND Screenon 03-19-2025 Ab SCREEN GEL Negative Normal [facility] Comment on above: Order Comment: CMV N EG? NNumber of units to transfuse: 2Reason for Ordering Blood: AcuteAre the blood/blood products to be transfused? YIs the patient having/had surgery? Jordan Fitzgerald Performed By: #### B MILI, BTS ####[facility] [address] [place], [place], [address] ABO and Rh group Nom (Bld) Blood group A Rh(D) positive Normal [facility] Comment on above: Order Comment: CMV N EG? NNumber of units to transfuse: 2Reason for Ordering Blood: AcuteAre the blood/blood products to be transfused? YIs the patient having/had surgery? Jordan Fitzgerald Performed By: #### B MILI, BTS ####[facility] [address] [place], [place], [address] White blood cell (WBC) count Ordered By: Phong Solomon on 03-19-2025 WBC (Bld) [#/Vol] 5.7 10*3/uL 4.4-11.0 [facility] Bedside Glucoseon 03-18-2025 FINGERSTICK GLU 158 mg/dL High 74-[address] [facility] Comment on above: Result Comment: JEREMIAS GEMENT OF PATIENT CARE PER NURSING PROTOCOL Performed By: #### L 501.080 ####[facility] [address] [place], [address] FINGERSTICK GLU 205 mg/dL High 74-[address] [facility] Comment on above: Result Comment: JEREMIAS GEMENT OF PATIENT CARE PER NURSING PROTOCOL Performed By: #### L 501.080 ####[facility] [address] [place], [address] FINGERSTICK GLU 235 mg/dL High 74-[address] [facility] Comment on above: Result Comment: JEREMIAS GEMENT OF PATIENT CARE PER NURSING PROTOCOL Performed By: #### L 501.080 ####[facility] [address] [place], [address] FINGERSTICK GLU 89 mg/dL Normal 74-[address] [facility] Comment on above: Result Comment: JEREMIAS GEMENT OF PATIENT CARE PER NURSING PROTOCOL Performed By: #### L 501.080 ####[facility] [address] [place], [address] Bedside Glucoseon 03-17-2025 FINGERSTICK GLU 129 mg/dL High 74-[address] [facility] Comment on above: Result Comment: JEREMIAS GEMENT OF PATIENT CARE PER NURSING PROTOCOL Performed By: #### L 501.080 ####[facility] [address] [place], [address] FINGERSTICK GLU 101 mg/dL Normal 74-[address] [facility] Comment on above: Result Comment: JEREMIAS GEMENT OF PATIENT CARE PER NURSING PROTOCOL Performed By: #### L 501.080 ####[facility] [address] [place], [address] FINGERSTICK GLU 120 mg/dL High 74-[address] [facility] Comment on above: Result Comment: JEREMIAS GEMENT OF PATIENT CARE PER NURSING PROTOCOL Performed By: #### L 501.080 ####[facility] [address] [place], [address] Bedside Glucoseon 03-16-2025 FINGERSTICK GLU 154 mg/dL High 74-[address] [facility] Comment on above: Result Comment: JEREMIAS GEMENT OF PATIENT CARE PER NURSING PROTOCOL Performed By: #### L 501.080 ####[facility] [address] [place], [address] FINGERSTICK GLU 127 mg/dL High 74-[address] [facility] Comment on above: Result Comment: JEREMIAS GEMENT OF PATIENT CARE PER NURSING PROTOCOL Performed By: #### L 501.080 ####[facility] [address] [place], [address] FINGERSTICK GLU 162 mg/dL High -[address] [facility] Comment on above: Result Comment: JEREMIAS GEMENT OF PATIENT CARE PER NURSING PROTOCOL Performed By: #### L 501.080 ####[facility] [address] [place], [address] FINGERSTICK GLU 120 mg/dL High 74-[address] [facility] Comment on above: Result Comment: JEREMIAS GEMENT OF PATIENT CARE PER NURSING PROTOCOL Performed By: #### L 501.080 ####[facility] [address] [place], [address] Bedside Glucoseon 03-15-2025 FINGERSTICK GLU 247 mg/dL High [address] [place] [address] Comment on above: Result Comment: JEREMIAS GEMENT OF PATIENT CARE PER NURSING PROTOCOL Performed By: #### L 501.080 ####[facility] [address] [place], [address] FINGERSTICK GLU 256 mg/dL High [facility] [facility] Comment on above: Result Comment: JEREMIAS GEMENT OF PATIENT CARE PER NURSING PROTOCOL Performed By: #### L 501.080 ####[facility] [address] [place], [address] FINGERSTICK GLU 286 mg/dL High [address] [place] [address] Comment on above: Result Comment: JEREMIAS GEMENT OF PATIENT CARE PER NURSING PROTOCOL Performed By: #### L 501.080 ####[facility] [address] [place], [address] FINGERSTICK GLU 161 mg/dL High [address] [place] [address] Comment on above: Result Comment: JEREMIAS GEMENT OF PATIENT CARE PER NURSING PROTOCOL Performed By: #### L 501.080 ####[facility] [address] [place], [address] Bedside Glucoseon 03-14-2025 FINGERSTICK GLU 228 mg/dL High -[address] [place] [address] Comment on above: Result Comment: JEREMIAS GEMENT OF PATIENT CARE PER NURSING PROTOCOL Performed By: #### L 501.080 ####[facility] [address] [place], [address] FINGERSTICK GLU 201 mg/dL High [address] [place] [address] Comment on above: Result Comment: JEREMIAS GEMENT OF PATIENT CARE PER NURSING PROTOCOL Performed By: #### L 501.080 ####[facility] [address] [place], [address] FINGERSTICK GLU 204 mg/dL High [address] [place] [address] Comment on above: Result Comment: JEREMIAS GEMENT OF PATIENT CARE PER NURSING PROTOCOL Performed By: #### L 501.080 ####[facility] [address] [place], [address] FINGERSTICK GLU 163 mg/dL [address] Comment on above: Result Comment: JEREMIAS GEMENT OF PATIENT CARE PER NURSING PROTOCOL Performed By: #### L 501.080 ####[facility] [address] [place], [address] Bedside Glucoseon 03-13-2025 FINGERSTICK GLU 258 mg/dL High [address] [place] [address] Comment on above: Result Comment: JEREMIAS GEMENT OF PATIENT CARE PER NURSING PROTOCOL Performed By: #### L 501.080 ####[facility] [address] [place], [address] FINGERSTICK GLU 286 mg/dL [address] Comment on above: Result Comment: JEREMIAS GEMENT OF PATIENT CARE PER NURSING PROTOCOL Performed By: #### L 501.080 ####[facility] [address] [place], [address] FINGERSTICK GLU 217 mg/dL High [address] [place] [address] Comment on above: Result Comment: JEREMIAS GEMENT OF PATIENT CARE PER NURSING PROTOCOL Performed By: #### L 501.080 ####[facility] [address] [place], [address] FINGERSTICK GLU 132 mg/dL High 74-[address] [facility] Comment on above: Result Comment: JEREMIAS GEMENT OF PATIENT CARE PER NURSING PROTOCOL Performed By: #### L 501.080 ####[facility] [address] [place], [address] Calculated very low density lipoprotein (VLDL) cholesterol measurementOrdered By: Phong Solomon on 03-13-2025 Calculated very low density lipoprotein (VLDL) cholesterol measurement 25 mg/dL 5-[address] [facility] Consultation - Surgicalon Consultation - Surgical Normal [facility] LDL calc ser/plasOrdered By: Phong Solomon on 03-13-2025 Cholesterol in LDL [Mass/Vol] 39 mg/dL [facility] Comment on above: Kutytkpsew=036-369 m g/dL & Higher Tecj=503 mg/dL or greater Lipid Profileon 03-13-2025 CHOL:HDL 2.[address] [facility] Comment on above: Performed By: #### L 500.4100 ####[facility] [address] [place], [address] Cholesterol [Mass/Vol] 99 mg/dL Normal <=200 [facility] Comment on above: Result Comment: Chol esterol level, Desirable <200 mg/dLBorderline high cholesterol 200-239 mg/dLHigh cholesterol >=240 mg/dLRecommendations of the NCEP Adult Treatment Panel for thefollowing risk-cutoff thresholds for the [place] Americanpulation. Performed By: #### L 500.4100 ####[facility] [address] [place], [address] Cholesterol in HDL [Mass/Vol] 35 mg/dL Low [facility] Comment on above: Result Comment: Ligia onal Cholesterol Education Program (NCEP) guidelines:<40 mg/dL: Low HDL-cholesterol (major risk factor for CHD)>= 60 mg/dL: High HDL-cholesterol (negative risk factor forCHD)HDL-cholesterol is affected by a number of factors, e.g.smoking, exercise, hormones, sex and age. Performed By: #### L 500.4100 ####[facility] [address] [place], [place], [id number]) Cholesterol in LDL [Mass/Vol] 39 mg/dL Normal [facility] Comment on above: Result Comment: Bord gqyrtt=718-753 mg/dL Higher Wxto=707 mg/dL or greater Performed By: #### L 500.4100 ####[facility] [address] [place], [place], [phone]) Cholesterol in VLDL [Mass/Vol] 25 mg/dL Normal 5-[address] [facility] Comment on above: Performed By: #### L 500.4100 ####[facility] [address] [place], [place], [phone] Triglyceride [Mass/Vol] 126 mg/dL Normal [facility] Comment on above: Result Comment: The drugs N-Acetylcysteine and Metamizole may falselydepress this assay.Normal range: <150 mg/dLBorderline High: 150-199 mg/dLHigh: 200-499 mg/dLVery High: >500 mg/dL Performed By: #### L 500.4100 ####[facility] [address] [place], [place], [address] Screening total cholesterol/ high density lipoprotein (HDL) cholesterol ratioOrdered By: Phong Solomon on 03-13-2025 Cholesterol.total/Chol esterol in HDL [Mass ratio] 2.85 {ratio} [facility] Serum or plasma cholesterol in HDL measurement (mass/volume)Ordered By: Phong Solomon on 03-13-2025 Cholesterol in HDL [Mass/Vol] 35 mg/dL Low >[address] [facility] Comment on above: National Cholesterol Education Program (NCEP) guidelines:<40 mg/dL: Low HDL-cholesterol (major risk factor for CHD)>= 60 mg/dL: High HDL-cholesterol (negative risk factor for CHD)HDL-cholesterol is affected by a number of factors, e.g. smoking, exercise, hormones, sex and age. Serum or plasma cholesterol measurement (mass/volume)Ordered By: Phong Solomon on 03-13-2025 Cholesterol [Mass/Vol] 99 mg/dL <201 [facility] Comment on above: Cholesterol level, D esirable <200 mg/dLBorderline high cholesterol 200-239 mg/dLHigh cholesterol >=240 mg/dLRecommendations of the NCEP Adult Treatment Panel for the following risk-cutoff thresholds for the [place] population. Triglycerides measurementOrd ered By: Phong Solomon on 03-13-2025 Triglyceride [Mass/Vol] 126 mg/dL <[address] [facility] Comment on above: The drugs N-Acetylcy steine and Metamizole may falsely depress this assay. Normal range: <150 mg/dLBorderline High: 150-199 mg/dLHigh: 200-499 mg/dLVery High: >500 mg/dL Basic Metabolic Profile (BMP )on 03-12-2025 BUN/CRE 33.8 RATIO High 10-[address] [facility] Comment on above: Performed By: #### L 100.0100, L500.2500 ####[facility] [address] [place], [address] Calcium [Mass/Vol] 8.9 mg/dL Normal 7.6-11.0 [facility] Comment on above: Performed By: #### L 100.0100, L500.2500 ####[facility] [address] [place], [address] Chloride [Moles/Vol] 110 mmol/L High 98-108 [facility] Comment on above: Performed By: #### L 100.0100, L500.2500 ####[facility] [address] [place], [address] CO2 [Moles/Vol] 19.8 mmol/L Low 21.0-32.[address] [facility] Comment on above: Performed By: #### L 100.0100, L500.2500 ####[facility] [address] [place], [address] Creatinine [Mass/Vol] 1.48 mg/dL High 0.70-1.20 [facility] Comment on above: Performed By: #### L 100.0100, L500.2500 ####[facility] [address] [place], [address] ECRCL 34.76 ml/min Low 50-[address] [facility] Comment on above: Performed By: #### L 100.0100, L500.2500 ####[facility] [address] [place], [address] GAP 12 Normal 5-[address] [facility] Comment on above: Performed By: #### L 100.0100, L500.2500 ####[facility] [address] [place], [address] GFR/1.73 sq M.predicted among non-blacks MDRD (S/P/Bld) [Vol rate/Area] 37 mL/min/{1.73_m2} Low >[address] [facility] Comment on above: Result Comment: mL/m in/1.73m2 CKD-EPI Creatinine Equation (2020) Performed By: #### L 100.0100, L500.2500 ####[facility] [address] [place], [address] Glucose [Mass/Vol] 137 mg/dL High 70-99 [facility] Comment on above: Performed By: #### L 100.0100, L500.2500 ####[facility] [address] [place], [address] Potassium [Moles/Vol] 4.6 mmol/L Normal 3.3-5.1 [facility] Comment on above: Performed By: #### L 100.0100, L500.2500 ####[facility] [address] [place], [address] Sodium [Moles/Vol] 141 mmol/L Normal 133-145 [facility] Comment on above: Performed By: #### L 100.0100, L500.2500 ####[facility] [address] [place], [address] Urea nitrogen [Mass/Vol] 50 mg/dL High 4-[address] [facility] Comment on above: Performed By: #### L 100.0100, L500.2500 ####[facility] [address] [place], [address] BUN Normal 4-[address] [facility] Comment on above: Result Comment: Canc elled via OM: Order cancelled - Patient discharged Performed By: #### L 100.0100, L500.2500 ####[facility] [address] [place], [address] BUN/CRE Normal 10-[address] [facility] Comment on above: Result Comment: Canc elled via OM: Order cancelled - Patient discharged Performed By: #### L 100.0100, L500.2500 ####[facility] [address] [place], [address] Calcium Normal 7.6-11.[address] [facility] Comment on above: Result Comment: Canc elled via OM: Order cancelled - Patient discharged Performed By: #### L 100.0100, L500.2500 ####[facility] [address] [place], [address] CL Normal 98-[address] [facility] Comment on above: Result Comment: Canc elled via OM: Order cancelled - Patient discharged Performed By: #### L 100.0100, L500.2500 ####[facility] [address] [place], [address] CO2 Normal 21.0-32.[address] [facility] Comment on above: Result Comment: Canc elled via OM: Order cancelled - Patient discharged Performed By: #### L 100.0100, L500.2500 ####[facility] [address] [place], [address] CREAT,SERUM Normal 0.70-1.[address] [facility] Comment on above: Result Comment: Canc elled via OM: Order cancelled - Patient discharged Performed By: #### L 100.0100, L500.2500 ####[facility] [address] [place], [address] eGFR Normal >[address] [facility] Comment on above: Result Comment: Canc elled via OM: Order cancelled - Patient discharged Performed By: #### L 100.0100, L500.2500 ####[facility] [address] [place], [address] GAP Normal 5-[address] [facility] Comment on above: Result Comment: Canc elled via OM: Order cancelled - Patient discharged Performed By: #### L 100.0100, L500.2500 ####[facility] [address] [place], [address] GLU Normal 70-[address] [facility] Comment on above: Result Comment: Canc elled via OM: Order cancelled - Patient discharged Performed By: #### L 100.0100, L500.2500 ####[facility] [address] [place], [address] Potassium Normal 3.3-5.[address] [facility] Comment on above: Result Comment: Canc elled via OM: Order cancelled - Patient discharged Performed By: #### L 100.0100, L500.2500 ####[facility] [address] [place], [address] Basic Metabolic Profile (BMP) Normal 133-[address] [facility] Comment on above: Result Comment: Canc elled via OM: Order cancelled - Patient discharged Performed By: #### L 100.0100, L500.2500 ####[facility] [address] [place], [address] Bedside Glucoseon 03-12-2025 FINGERSTICK GLU 220 mg/dL High [address] [place] [address] Comment on above: Result Comment: JEREMIAS GEMENT OF PATIENT CARE PER NURSING PROTOCOL Performed By: #### L 501.080 ####[facility] [address] [place], [address] FINGERSTICK GLU 276 mg/dL High [address] [place] [address] Comment on above: Result Comment: JEREMIAS GEMENT OF PATIENT CARE PER NURSING PROTOCOL Performed By: #### L 501.080 ####[facility] [address] [place], [address] FINGERSTICK GLU 315 mg/dL High [address] [place] [address] Comment on above: Result Comment: JEREMIAS GEMENT OF PATIENT CARE PER NURSING PROTOCOL Performed By: #### L 501.080 ####[facility] [address] [place], [address] FINGERSTICK GLU 129 mg/dL High [address] [place] [address] Comment on above: Result Comment: JEREMIAS GEMENT OF PATIENT CARE PER NURSING PROTOCOL Performed By: #### L 501.080 ####[facility] [address] [place], [address] CBC W/Diff, Automatedon 02-18 Absolute Lymph 1.65 X10 3/uL Normal 0.83-4.[address] [facility] Comment on above: Performed By: #### L 100.0100, L500.2500 ####[facility] [address] [place], [address] Absolute Neut 6.7 X10 3/uL Normal 2.0-7.[address] [facility] Comment on above: Performed By: #### L 100.0100, L500.2500 ####[facility] [address] [place], [address] Basophils/100 WBC (Bld) 0.7 % Normal 0-[address] [facility] Comment on above: Performed By: #### L 100.0100, L500.2500 ####[facility] [address] [place], [address] Eosinophils/100 WBC (Bld) 2.9 % Normal 0-[address] [facility] Comment on above: Performed By: #### L 100.0100, L500.2500 ####[facility] [address] [place], [address] Erythrocyte distribution width (RBC) [Ratio] 15.8 % High 11.6-14.[address] [facility] Comment on above: Performed By: #### L 100.0100, L500.2500 ####[facility] [address] [place], [address] Hematocrit (Bld) [Volume fraction] 29.0 % Low 37-[address] [facility] Comment on above: Performed By: #### L 100.0100, L500.2500 ####[facility] [address] [place], [address] Hemoglobin (Bld) [Mass/Vol] 9.0 g/dL Low 12.0-15.[address] [facility] Comment on above: Performed By: #### L 100.0100, L500.2500 ####[facility] [address] [place], [address] IG% 1.000 High 0.0-0.[address] [facility] Comment on above: Result Comment: IG% - Immature Granulocytes (promyelocytes, myelocytes andmetamyelocytes) > 1% indicates that a LEFT SHIFT is Present. Performed By: #### L 100.0100, L500.2500 ####[facility] [address] [place], [address] Lymphocytes/100 WBC (Bld) 16.9 % Low 19-[address] [facility] Comment on above: Performed By: #### L 100.0100, L500.2500 ####[facility] [address] [place], [address] MCH (RBC) [Entitic mass] 28.7 pg Normal 27.0-32.[address] [facility] Comment on above: Performed By: #### L 100.0100, L500.2500 ####[facility] [address] [place], [address] MCHC (RBC) [Mass/Vol] 31.0 g/dL Low 32-36 [facility] Comment on above: Performed By: #### L 100.0100, L500.2500 ####[facility] [address] [place], [address] MCV (RBC) [Entitic vol] 92.4 fL Normal 81-[address] [facility] Comment on above: Performed By: #### L 100.0100, L500.2500 ####[facility] [address] [place], [address] Monocytes/100 WBC (Bld) 10.2 % High 0-[address] [facility] Comment on above: Performed By: #### L 100.0100, L500.2500 ####[facility] [address] [place], [address] Neutrophils/100 WBC (Bld) 68.3 % Normal 47-[address] [facility] Comment on above: Performed By: #### L 100.0100, L500.2500 ####[facility] [address] [place], [address] Nucleated RBC (Bld) [#/Vol] 0 10*3/uL Normal 0-[address] [facility] Comment on above: Performed By: #### L 100.0100, L500.2500 ####[facility] [address] [place], [address] Platelet mean volume (Bld) [Entitic vol] 11.8 fL Normal 6.2-12.[address] [facility] Comment on above: Performed By: #### L 100.0100, L500.2500 ####[facility] [address] [place], [address] Platelets (Bld) [#/Vol] 175 10*3/uL Normal 150-[address] [facility] Comment on above: Performed By: #### L 100.0100, L500.2500 ####[facility] [address] [place], [address] RBC (Bld) [#/Vol] 3.14 10*6/uL Low 4.2-5.4 [facility] Comment on above: Performed By: #### L 100.0100, L500.2500 ####[facility] [address] [place], [address] RDW SD 51.3 fl High 35.1-43.[address] [facility] Comment on above: Performed By: #### L 100.0100, L500.2500 ####[facility] [address] [place], [address] WBC (Bld) [#/Vol] 9.8 10*3/uL Normal 4.4-11.0 [facility] Comment on above: Performed By: #### L 100.0100, L500.2500 ####[facility] [address] [place], [address] Absolute Neut Normal 2.0-7.[address] [facility] Comment on above: Result Comment: Canc elled via OM: Order cancelled - Patient discharged Performed By: #### L 100.0100, L500.2500 ####[facility] [address] [place], [address] HCT Normal 37-[address] [facility] Comment on above: Result Comment: Canc elled via OM: Order cancelled - Patient discharged Performed By: #### L 100.0100, L500.2500 ####[facility] [address] [place], [address] HGB Normal 12.0-15.[address] [facility] Comment on above: Result Comment: Canc elled via OM: Order cancelled - Patient discharged Performed By: #### L 100.0100, L500.2500 ####[facility] [address] [place], [address] MCH Normal 27.0-32.[address] [facility] Comment on above: Result Comment: Canc elled via OM: Order cancelled - Patient discharged Performed By: #### L 100.0100, L500.2500 ####[facility] [address] [place], [address] MCHC Normal 32-[address] [facility] Comment on above: Result Comment: Canc elled via OM: Order cancelled - Patient discharged Performed By: #### L 100.0100, L500.2500 ####[facility] [address] [place], [address] MCV Normal 81-[address] [facility] Comment on above: Result Comment: Canc elled via OM: Order cancelled - Patient discharged Performed By: #### L 100.0100, L500.2500 ####[facility] [address] [place], [address] NEUT% Normal 47-[address] [facility] Comment on above: Result Comment: Canc elled via OM: Order cancelled - Patient discharged Performed By: #### L 100.0100, L500.2500 ####[facility] [address] [place], [address] PLT Normal 150-[address] [facility] Comment on above: Result Comment: Canc elled via OM: Order cancelled - Patient discharged Performed By: #### L 100.0100, L500.2500 ####[facility] [address] [place], [address] RBC Normal 4.2-5.[address] [facility] Comment on above: Result Comment: Canc elled via OM: Order cancelled - Patient discharged Performed By: #### L 100.0100, L500.2500 ####[facility] [address] [place], [address] RDW CV Normal 11.6-14.[address] [facility] Comment on above: Result Comment: Canc elled via OM: Order cancelled - Patient discharged Performed By: #### L 100.0100, L500.2500 ####[facility] [address] [place], [address] RDW SD Normal 35.1-43.[address] [facility] Comment on above: Result Comment: Canc elled via OM: Order cancelled - Patient discharged Performed By: #### L 100.0100, L500.2500 ####[facility] [facility] [address] [place], [address] WBC Normal 4.4-11.[address] [facility] Comment on above: Result Comment: Canc elled via OM: Order cancelled - Patient discharged Performed By: #### L 100.0100, L500.2500 ####[facility] [address] [place], [address] Absolute lymphocyte countOrd ered By: Broderick Dempsey on 03-11-2025 Lymphocytes Auto (Unsp spec) [#/Vol] 1.37 10*3/uL 0.83-4.[address] [facility] Absolute neutrophil countOrd ered By: Broderick Dempsey on 03-11-2025 Neutrophils (Bld) [#/Vol] 5.4 10*3/uL 2.0-7.[address] [facility] Anion gap in Serum or Plasma Ordered By: Broderick Dempsey on 03-11-2025 Anion gap [Moles/Vol] 10 mmol/L 5-15 [facility] Automated lymphocyte count a s percentage of total leukocytesOrdered By: Broderick Dempsey on 03-11-2025 Lymphocytes/100 WBC Auto (Unsp spec) 17.0 % Low 19-[address] [facility] BUN/creatinine ratioOrdered By: Broderick Dempsey on 03-11-2025 Urea nitrogen/Creatinine [Mass ratio] 37.8 mg/mg High 10-[address] [facility] Basic Metabolic Profile (BMP )on 03-11-2025 BUN/CRE 37.8 RATIO High 10-[address] [facility] Comment on above: Performed By: #### L 500.2500, L100.0100 ####[facility] [address] [place], [address] Calcium [Mass/Vol] 8.4 mg/dL Normal 7.6-11.0 [facility] Comment on above: Performed By: #### L 500.2500, L100.0100 ####[facility] [address] [place], [address] Chloride [Moles/Vol] 111 mmol/L High 98-108 [facility] Comment on above: Performed By: #### L 500.2500, L100.0100 ####[facility] [address] [place], [address] CO2 [Moles/Vol] 19.8 mmol/L Low 21.0-32.[address] [facility] Comment on above: Performed By: #### L 500.2500, L100.0100 ####[facility] [address] [place], [address] Creatinine [Mass/Vol] 1.41 mg/dL High 0.70-1.20 [facility] Comment on above: Performed By: #### L 500.2500, L100.0100 ####[facility] [address] [place], [address] ECRCL 36.83 ml/min Low 50-[address] [facility] Comment on above: Performed By: #### L 500.2500, L100.0100 ####[facility] [address] [place], [address] GAP 10 Normal 5-[address] [facility] Comment on above: Performed By: #### L 500.2500, L100.0100 ####[facility] [address] [place], [address] GFR/1.73 sq M.predicted among non-blacks MDRD (S/P/Bld) [Vol rate/Area] 39 mL/min/{1.73_m2} Low >[address] [facility] Comment on above: Result Comment: mL/m in/1.73m2 CKD-EPI Creatinine Equation (2020) Performed By: #### L 500.2500, L100.0100 ####[facility] [address] [place], [address] Glucose [Mass/Vol] 91 mg/dL Normal 70-99 [facility] Comment on above: Performed By: #### L 500.2500, L100.0100 ####[facility] [address] [place], [address] Potassium [Moles/Vol] 4.2 mmol/L Normal 3.3-5.1 [facility] Comment on above: Performed By: #### L 500.2500, L100.0100 ####[facility] [address] [place], [address] Sodium [Moles/Vol] 141 mmol/L Normal 133-145 [facility] Comment on above: Performed By: #### L 500.2500, L100.0100 ####[facility] [address] [place], [address] Urea nitrogen [Mass/Vol] 53 mg/dL High 4-[address] [facility] Comment on above: Performed By: #### L 500.2500, L100.0100 ####[facility] [address] [place], [address] Basophil percentageOrdered B y: Broderick Dempsey on 03-11-2025 Basophils/100 WBC (Bld) 0.7 % 0-[address] [facility] Bedside Glucoseon 03-11-2025 FINGERSTICK GLU 204 mg/dL High 74-[address] [facility] Comment on above: Result Comment: JEREMIAS GEMENT OF PATIENT CARE PER NURSING PROTOCOL Performed By: #### L 501.080 ####[facility] [address] [place], [address] FINGERSTICK GLU 164 mg/dL High 74-[address] [facility] Comment on above: Result Comment: JEREMIAS GEMENT OF PATIENT CARE PER NURSING PROTOCOL Performed By: #### L 501.080 ####[facility] [address] [facility] [address] FINGERSTICK GLU 282 mg/dL High 74-[address] [facility] Comment on above: Result Comment: JEREMIAS GEMENT OF PATIENT CARE PER NURSING PROTOCOL Performed By: #### L 501.080 ####[facility] [address] [place], [address] FINGERSTICK GLU 82 mg/dL Normal 74-[address] [facility] Comment on above: Result Comment: JEREMIAS GEMENT OF PATIENT CARE PER NURSING PROTOCOL Performed By: #### L 501.080 ####[facility] [address] [place], [address] FINGERSTICK GLU 142 mg/dL High 74-[address] [facility] Comment on above: Result Comment: JEREMIAS GEMENT OF PATIENT CARE PER NURSING PROTOCOL Performed By: #### L 501.080 ####[facility] [address] [place], [address] CBC W/Diff, Automatedon - Absolute Lymph 1.37 X10 3/uL Normal 0.83-4.[address] [facility] Comment on above: Performed By: #### L 500.2500, L100.0100 ####[facility] [address] [place], [address] Absolute Neut 5.4 X10 3/uL Normal 2.0-7.[address] [facility] Comment on above: Performed By: #### L 500.2500, L100.0100 ####[facility] [address] [place], [address] Basophils/100 WBC (Bld) 0.7 % Normal 0-[address] [facility] Comment on above: Performed By: #### L 500.2500, L100.0100 ####[facility] [address] [place], [address] Eosinophils/100 WBC (Bld) 3.6 % Normal 0-[address] [facility] Comment on above: Performed By: #### L 500.2500, L100.0100 ####[facility] [address] [place], [address] Erythrocyte distribution width (RBC) [Ratio] 15.4 % High 11.6-14.[address] [facility] Comment on above: Performed By: #### L 500.2500, L100.0100 ####[facility] [address] [place], [address] Hematocrit (Bld) [Volume fraction] 25.3 % Low 37-[address] [facility] Comment on above: Performed By: #### L 500.2500, L100.0100 ####[facility] [address] [place], [address] Hemoglobin (Bld) [Mass/Vol] 8.0 g/dL Low 12.0-15.[address] [facility] Comment on above: Performed By: #### L 500.2500, L100.0100 ####[facility] [address] [place], [address] IG% 0.900 Normal 0.0-0.[address] [facility] Comment on above: Result Comment: IG% - Immature Granulocytes (promyelocytes, myelocytes andmetamyelocytes) > 1% indicates that a LEFT SHIFT is Present. Performed By: #### L 500.2500, L100.0100 ####[facility] [address] [place], [address] Lymphocytes/100 WBC (Bld) 17.0 % Low 19-[address] [facility] Comment on above: Performed By: #### L 500.2500, L100.0100 ####[facility] [address] [place], [address] MCH (RBC) [Entitic mass] 28.8 pg Normal 27.0-32.[address] [facility] Comment on above: Performed By: #### L 500.2500, L100.0100 ####[facility] [address] [place], [address] MCHC (RBC) [Mass/Vol] 31.6 g/dL Low 32-36 [facility] Comment on above: Performed By: #### L 500.2500, L100.0100 ####[facility] [address] [place], [address] MCV (RBC) [Entitic vol] 91.0 fL Normal 81-[address] [facility] Comment on above: Performed By: #### L 500.2500, L100.0100 ####[facility] [address] [place], [address] Monocytes/100 WBC (Bld) 10.8 % High 0-[address] [facility] Comment on above: Performed By: #### L 500.2500, L100.0100 ####[facility] [address] [place], [address] Neutrophils/100 WBC (Bld) 67.0 % Normal 47-[address] [facility] Comment on above: Performed By: #### L 500.2500, L100.0100 ####[facility] [address] [place], [address] Nucleated RBC (Bld) [#/Vol] 0 10*3/uL Normal 0-[address] [facility] Comment on above: Performed By: #### L 500.2500, L100.0100 ####[facility] [address] [place], [address] Platelet mean volume (Bld) [Entitic vol] 11.7 fL Normal 6.2-12.[address] [facility] Comment on above: Performed By: #### L 500.2500, L100.0100 ####[facility] [address] [place], [address] Platelets (Bld) [#/Vol] 150 10*3/uL Normal 150-[address] [facility] Comment on above: Performed By: #### L 500.2500, L100.0100 ####[facility] [address] [place], [address] RBC (Bld) [#/Vol] 2.78 10*6/uL Low 4.2-5.4 [facility] Comment on above: Performed By: #### L 500.2500, L100.0100 ####[facility] [address] [place], [address] RDW SD 49.5 fl High 35.1-43.[address] [facility] Comment on above: Performed By: #### L 500.2500, L100.0100 ####[facility] [address] [place], [address] WBC (Bld) [#/Vol] 8.1 10*3/uL Normal 4.4-11.0 [facility] Comment on above: Performed By: #### L 500.2500, L100.0100 ####[facility] [address] [place], [address] Carbon dioxide, total [Moles /volume] in Central venous bloodOrdered By: Broderick Dempsey on 03-11-2025 CO2 [Moles/Vol] 19.8 mmol/L Low 21.0-32.[address] [facility] Chloride assayOrdered By: Solange Dempsey on 03-11-2025 Chloride [Moles/Vol] 111 mmol/L High 98-108 [facility] Consultation - Infectious Dx on 03-11-2025 Consultation - Infectious Dx Normal [facility] Eosinophil percentageOrdered By: Broderick Dempsey on 03-11-2025 Eosinophils/100 WBC (Bld) 3.6 % 0-[address] [facility] Erythrocyte distribution wid th ratioOrdered By: Broderick Dempsey on 03-11-2025 Erythrocyte distribution width (RBC) [Ratio] 15.4 % High 11.6-14.[address] [facility] Erythrocyte distribution wid th standard deviationOrdered By: Broderick Dempsey on 03-11-2025 Erythrocyte distribution width (RBC) [Ratio] 49.5 fl High 35.1-43.[address] [facility] Glomerular filtration rate ( GFR) estimation/1.73 sq m using serum, plasma, or whole bOrdered By: Broderick Dempsey on 03-11-2025 GFR/1.73 sq M.predicted among non-blacks MDRD (S/P/Bld) [Vol rate/Area] 39 mL/min/{1.73_m2} Low >[address] [facility] Comment on above: mL/min/1.73m2 CKD-EP I Creatinine Equation (2020) Glucose measurement at bedsi deOrdered By: Broderick Dempsey on 03-11-2025 Glucose [Mass/Vol] 164 mg/dL High 74-106 [facility] Comment on above: MANAGEMENT OF PATIEN T CARE PER NURSING PROTOCOL Hematocrit Auto (Bld) [Volum e fraction]Ordered By: Broderick Dempsey on 03-11-2025 Hematocrit (Bld) [Volume fraction] 25.3 % Low 37-[address] [facility] Hemoglobin measurementOrdere d By: Broderick Dempsey on 03-11-2025 Hemoglobin (Bld) [Mass/Vol] 8.0 g/dL Low 12.0-15.[address] [facility] Immature granulocytes/100 WB C Auto (Bld)Ordered By: Broderick Dempsey on 03-11-2025 Immature granulocytes/100 WBC (Bld) 0.900 % 0.0-0.[address] [facility] Comment on above: IG% - Immature Granu locytes (promyelocytes, myelocytes and metamyelocytes) > 1% indicates that a LEFT SHIFT is Present. MCV (mean corpuscular volume ) determinationOrdered By: Broderick Dempsey on 03-11-2025 MCV (RBC) [Entitic vol] 91.0 fL 81-[address] [facility] Mean corpuscular hemoglobin (MCH) determinationOrdered By: Broderick Dempsey on 03-11-2025 MCH (RBC) [Entitic mass] 28.8 pg 27.0-32.[address] [facility] Mean corpuscular hemoglobin concentration (MCHC) determinationOrdered By: Broderick Dempsey on 03-11-2025 MCHC (RBC) [Mass/Vol] 31.6 g/dL Low 32-36 [facility] Mean platelet volume determi nationOrdered By: Broderick Dempsey on 03-11-2025 Platelet mean volume (Bld) [Entitic vol] 11.7 fL 6.2-12.[address] [facility] Monocyte percentageOrdered B y: Broderick Dempsey on 03-11-2025 Monocytes/100 WBC (Bld) 10.8 % High 0-[address] [facility] Neutrophil percentageOrdered By: Broderick Dempsey on 03-11-2025 Neutrophils/100 WBC (Bld) 67.0 % 47-[address] [facility] Nucleated red blood cell per centageOrdered By: Broderick Dempsey on 03-11-2025 Nucleated RBC/100 WBC (Bld) [Ratio] 0 % 0-[address] [facility] Platelet countOrdered By: Solange Dempsey on 03-11-2025 Platelets (Bld) [#/Vol] 150 10*3/uL 150-[address] [facility] Potassium measurement (mass/ volume)Ordered By: Broderick Dempsey on 03-11-2025 Potassium (Unsp spec) [Mass/Vol] 4.2 mmol/L 3.3-5.[address] [facility] RBC Auto (Bld) [#/Vol]Ordere d By: Broderick Dempsey on 03-11-2025 RBC (Bld) [#/Vol] 2.78 10*6/uL Low 4.2-5.4 [facility] Serum creatinine measurement (mass/volume)Ordered By: Broderick Dempsey on 03-11-2025 Creatinine [Mass/Vol] 1.41 mg/dL High 0.70-1.20 [facility] Serum glucose measurement (m ass/volume)Ordered By: Broderick Dempsey on 03-11-2025 Glucose [Mass/Vol] 91 mg/dL 70-99 [facility] Serum or plasma calcium natalia urement (mass/volume)Ordered By: Broderick Dempsey on 03-11-2025 Calcium [Mass/Vol] 8.4 mg/dL 7.6-11.0 [facility] Serum or plasma urea nitroge n measurement (mass/volume)Ordered By: Broderick Dempsey on 03-11-2025 Urea nitrogen [Mass/Vol] 53 mg/dL High 4-[address] [facility] Sodium levelOrdered By: Tevin Dempsey on 03-11-2025 Sodium [Moles/Vol] 141 mmol/L 133-145 [facility] White blood cell (WBC) count Ordered By: Broderick Dempsey on 03-11-2025 WBC (Bld) [#/Vol] 8.1 10*3/uL 4.4-11.0 [facility] Basic Metabolic Profile (BMP )on 03-10-2025 BUN/CRE 44.3 RATIO High 10-[address] [facility] Comment on above: Performed By: #### L 100.0100, L500.2500 ####[facility] [address] [place], [address] Calcium [Mass/Vol] 8.4 mg/dL Normal 7.6-11.0 [facility] Comment on above: Performed By: #### L 100.0100, L500.2500 ####[facility] [address] [place], [address] Chloride [Moles/Vol] 113 mmol/L High 98-108 [facility] Comment on above: Performed By: #### L 100.0100, L500.2500 ####[facility] [address] [place], [address] CO2 [Moles/Vol] 19.1 mmol/L Low 21.0-32.[address] [facility] Comment on above: Performed By: #### L 100.0100, L500.2500 ####[facility] [address] [place], [address] Creatinine [Mass/Vol] 1.47 mg/dL High 0.70-1.20 [facility] Comment on above: Performed By: #### L 100.0100, L500.2500 ####[facility] [address] [place], [address] ECRCL 35.18 ml/min Low 50-[address] [facility] Comment on above: Performed By: #### L 100.0100, L500.2500 ####[facility] [address] [place], [address] GAP 10 Normal 5-[address] [facility] Comment on above: Performed By: #### L 100.0100, L500.2500 ####[facility] [address] [place], [address] GFR/1.73 sq M.predicted among non-blacks MDRD (S/P/Bld) [Vol rate/Area] 37 mL/min/{1.73_m2} Low >[address] [facility] Comment on above: Result Comment: mL/m in/1.73m2 CKD-EPI Creatinine Equation (2020) Performed By: #### L 100.0100, L500.2500 ####[facility] [address] [place], [address] Glucose [Mass/Vol] 81 mg/dL Normal 70-99 [facility] Comment on above: Performed By: #### L 100.0100, L500.2500 ####[facility] [address] [place], [address] Potassium [Moles/Vol] 4.2 mmol/L Normal 3.3-5.1 [facility] Comment on above: Performed By: #### L 100.0100, L500.2500 ####[facility] [address] [place], [address] Sodium [Moles/Vol] 143 mmol/L Normal 133-145 [facility] Comment on above: Performed By: #### L 100.0100, L500.2500 ####[facility] [address] [place], [address] Urea nitrogen [Mass/Vol] 65 mg/dL High 4-[address] [facility] Comment on above: Performed By: #### L 100.0100, L500.2500 ####[facility] [address] [place], [address] Bedside Glucoseon 03-10-2025 FINGERSTICK GLU 186 mg/dL High 74-[address] [facility] Comment on above: Result Comment: JEREMIAS GEMENT OF PATIENT CARE PER NURSING PROTOCOL Performed By: #### L 501.080 ####[facility] [address] [place], [address] FINGERSTICK GLU 308 mg/dL High 74-[address] [facility] Comment on above: Result Comment: JEREMIAS GEMENT OF PATIENT CARE PER NURSING PROTOCOL Performed By: #### L 501.080 ####[facility] [address] [place], [address] FINGERSTICK GLU 84 mg/dL Normal 74-[address] [facility] Comment on above: Result Comment: JEREMIAS GEMENT OF PATIENT CARE PER NURSING PROTOCOL Performed By: #### L 501.080 ####[facility] [address] [place], [address] CBC W/Diff, Automatedon 02-18 Absolute Lymph 1.76 X10 3/uL Normal 0.83-4.[address] [facility] Comment on above: Performed By: #### L 100.0100, L500.2500 ####[facility] [address] [place], [address] Absolute Neut 4.7 X10 3/uL Normal 2.0-7.[address] [facility] Comment on above: Performed By: #### L 100.0100, L500.2500 ####[facility] [address] [place], [address] Basophils/100 WBC (Bld) 0.6 % Normal 0-[address] [facility] Comment on above: Performed By: #### L 100.0100, L500.2500 ####[facility] [address] [place], [address] Eosinophils/100 WBC (Bld) 3.0 % Normal 0-[address] [facility] Comment on above: Performed By: #### L 100.0100, L500.2500 ####[facility] [address] [place], [address] Erythrocyte distribution width (RBC) [Ratio] 15.1 % High 11.6-14.[address] [facility] Comment on above: Performed By: #### L 100.0100, L500.2500 ####[facility] [address] [place], [address] Hematocrit (Bld) [Volume fraction] 25.3 % Low 37-[address] [facility] Comment on above: Performed By: #### L 100.0100, L500.2500 ####[facility] [address] [place], [address] Hemoglobin (Bld) [Mass/Vol] 8.1 g/dL Low 12.0-15.[address] [facility] Comment on above: Performed By: #### L 100.0100, L500.2500 ####[facility] [address] [place], [address] IG% 1.300 High 0.0-0.[address] [facility] Comment on above: Result Comment: IG% - Immature Granulocytes (promyelocytes, myelocytes andmetamyelocytes) > 1% indicates that a LEFT SHIFT is Present. Performed By: #### L 100.0100, L500.2500 ####[facility] [address] [place], [address] Lymphocytes/100 WBC (Bld) 22.3 % Normal 19-[address] [facility] Comment on above: Performed By: #### L 100.0100, L500.2500 ####[facility] [address] [place], [address] MCH (RBC) [Entitic mass] 28.7 pg Normal 27.0-32.[address] [facility] Comment on above: Performed By: #### L 100.0100, L500.2500 ####[facility] [address] [place], [address] MCHC (RBC) [Mass/Vol] 32.0 g/dL Normal 32-36 [facility] Comment on above: Performed By: #### L 100.0100, L500.2500 ####[facility] [address] [place], [address] MCV (RBC) [Entitic vol] 89.7 fL Normal 81-[address] [facility] Comment on above: Performed By: #### L 100.0100, L500.2500 ####[facility] [address] [place], [address] Monocytes/100 WBC (Bld) 12.9 % High 0-[address] [facility] Comment on above: Performed By: #### L 100.0100, L500.2500 ####[facility] [address] [place], [address] Neutrophils/100 WBC (Bld) 59.9 % Normal 47-[address] [facility] Comment on above: Performed By: #### L 100.0100, L500.2500 ####[facility] [address] [place], [address] Nucleated RBC (Bld) [#/Vol] 0 10*3/uL Normal 0-[address] [facility] Comment on above: Performed By: #### L 100.0100, L500.2500 ####[facility] [address] [place], [address] Platelet mean volume (Bld) [Entitic vol] 11.4 fL Normal 6.2-12.[address] [facility] Comment on above: Performed By: #### L 100.0100, L500.2500 ####[facility] [address] [place], [address] Platelets (Bld) [#/Vol] 156 10*3/uL Normal 150-[address] [facility] Comment on above: Performed By: #### L 100.0100, L500.2500 ####[facility] [address] [place], [address] RBC (Bld) [#/Vol] 2.82 10*6/uL Low 4.2-5.4 [facility] Comment on above: Performed By: #### L 100.0100, L500.2500 ####[facility] [address] [place], [address] RDW SD 46.9 fl High 35.1-43.[address] [facility] Comment on above: Performed By: #### L 100.0100, L500.2500 ####[facility] [address] [place], [address] WBC (Bld) [#/Vol] 7.9 10*3/uL Normal 4.4-11.0 [facility] Comment on above: Performed By: #### L 100.0100, L500.2500 ####[facility] [address] [place], [address] Protein+Creatinine Ratio,Uri neon 03-10-2025 PROT:CRE RATIO 226 mg/g CRE High 0-[address] [facility] Comment on above: Performed By: #### L 501.0900 ####[facility] [address] [place], [address] Protein (U) [Mass/Vol] 8.5 mg/dL Normal 0.0-12.0 [facility] Comment on above: Performed By: #### L 501.0900 ####[facility] [address] [place], [address] UR CREAT 37.70 mg/dL Normal 28.00-217.[address] [facility] Comment on above: Performed By: #### L [id number] ####[facility] [address] [place], [address] Basic Metabolic Profile (BMP )on 03-09-2025 BUN/CRE 51.7 RATIO High 10-[address] [facility] Comment on above: Performed By: #### L 500.2500, [id number], L100.0100 ####[facility] [address] [place], [address] Calcium [Mass/Vol] 8.1 mg/dL Normal 7.6-11.0 [facility] Comment on above: Performed By: #### L 500.2500, L501.3620, L100.0100 ####[facility] [address] [place], [address] Chloride [Moles/Vol] 112 mmol/L High 98-108 [facility] Comment on above: Performed By: #### L 500.2500, L501.3620, L100.0100 ####[facility] [address] [place], [address] CO2 [Moles/Vol] 19.1 mmol/L Low 21.0-32.[address] [facility] Comment on above: Performed By: #### L 500.2500, L501.3620, L100.0100 ####[facility] [address] [place], [address] Creatinine [Mass/Vol] 1.63 mg/dL High 0.70-1.20 [facility] Comment on above: Performed By: #### L 500.2500, L501.3620, L100.0100 ####[facility] [address] [place], [address] ECRCL 31.75 ml/min Low 50-[address] [facility] Comment on above: Performed By: #### L 500.2500, L501.3620, L100.0100 ####[facility] [address] [place], [address] GAP 10 Normal 5-[address] [facility] Comment on above: Performed By: #### L 500.2500, L501.3620, L100.0100 ####[facility] [address] [place], [address] GFR/1.73 sq M.predicted among non-blacks MDRD (S/P/Bld) [Vol rate/Area] 33 mL/min/{1.73_m2} Low >[address] [facility] Comment on above: Result Comment: mL/m in/1.73m2 CKD-EPI Creatinine Equation (2020) Performed By: #### L 500.2500, L501.3620, L100.0100 ####[facility] [address] [place], [address] Glucose [Mass/Vol] 120 mg/dL High 70-99 [facility] Comment on above: Performed By: #### L 500.2500, L501.3620, L100.0100 ####[facility] [address] [place], [address] Potassium [Moles/Vol] 3.8 mmol/L Normal 3.3-5.1 [facility] Comment on above: Performed By: #### L 500.2500, L501.3620, L100.0100 ####[facility] [address] [place], [address] Sodium [Moles/Vol] 141 mmol/L Normal 133-145 [facility] Comment on above: Performed By: #### L 500.2500, L501.3620, L100.0100 ####[facility] [address] [place], [address] Urea nitrogen [Mass/Vol] 84 mg/dL High 4-[address] [facility] Comment on above: Performed By: #### L 500.2500, L501.3620, L100.0100 ####[facility] [address] [place], [address] Bedside Glucoseon - FINGERSTICK GLU 220 mg/dL High 74-[address] [facility] Comment on above: Result Comment: JEREMIAS GEMENT OF PATIENT CARE PER NURSING PROTOCOL Performed By: #### L 501.080 ####[facility] [address] [place], [address] FINGERSTICK GLU 193 mg/dL High 74-[address] [facility] Comment on above: Result Comment: JEREMIAS GEMENT OF PATIENT CARE PER NURSING PROTOCOL Performed By: #### L 501.080 ####[facility] [address] [place], [address] FINGERSTICK GLU 164 mg/dL High 74-[address] [facility] Comment on above: Result Comment: JEREMIAS GEMENT OF PATIENT CARE PER NURSING PROTOCOL Performed By: #### L 501.080 ####[facility] [address] [place], [address] CBC W/Diff, Automatedon 04-2 Absolute Lymph 1.38 X10 3/uL Normal 0.83-4.[address] [facility] Comment on above: Performed By: #### L 500.2500, L501.3620, L100.0100 ####[facility] [address] [place], [address] Absolute Neut 6.3 X10 3/uL Normal 2.0-7.[address] [facility] Comment on above: Performed By: #### L 500.2500, L501.3620, L100.0100 ####[facility] [address] [place], [address] Basophils/100 WBC (Bld) 0.3 % Normal 0-[address] [facility] Comment on above: Performed By: #### L 500.2500, L501.3620, L100.0100 ####[facility] [address] [place], [address] Eosinophils/100 WBC (Bld) 2.3 % Normal 0-[address] [facility] Comment on above: Performed By: #### L 500.2500, L501.3620, L100.0100 ####[facility] [address] [place], [address] Erythrocyte distribution width (RBC) [Ratio] 14.7 % High 11.6-14.[address] [facility] Comment on above: Performed By: #### L 500.2500, L501.3620, L100.0100 ####[facility] [address] [place], [address] Hematocrit (Bld) [Volume fraction] 23.5 % Low 37-[address] [facility] Comment on above: Performed By: #### L 500.2500, L501.3620, L100.0100 ####[facility] [address] [place], [address] Hemoglobin (Bld) [Mass/Vol] 7.6 g/dL Low 12.0-15.[address] [facility] Comment on above: Performed By: #### L 500.2500, L501.3620, L100.0100 ####[facility] [address] [place], [address] IG% 1.000 High 0.0-0.[address] [facility] Comment on above: Result Comment: IG% - Immature Granulocytes (promyelocytes, myelocytes andmetamyelocytes) > 1% indicates that a LEFT SHIFT is Present. Performed By: #### L 500.2500, L501.3620, L100.0100 ####[facility] [address] [place], [address] Lymphocytes/100 WBC (Bld) 15.8 % Low 19-[address] [facility] Comment on above: Performed By: #### L 500.2500, L501.3620, L100.0100 ####[facility] [address] [place], [address] MCH (RBC) [Entitic mass] 29.0 pg Normal 27.0-32.[address] [facility] Comment on above: Performed By: #### L 500.2500, L501.3620, L100.0100 ####[facility] [address] [place], [address] MCHC (RBC) [Mass/Vol] 32.3 g/dL Normal 32-36 [facility] Comment on above: Performed By: #### L 500.2500, L501.3620, L100.0100 ####[facility] [address] [place], [address] MCV (RBC) [Entitic vol] 89.7 fL Normal 81-[address] [facility] Comment on above: Performed By: #### L 500.2500, L501.3620, L100.0100 ####[facility] [address] [place], [address] Monocytes/100 WBC (Bld) 9.0 % Normal 0-[address] [facility] Comment on above: Performed By: #### L 500.2500, L501.3620, L100.0100 ####[facility] [address] [place], [address] Neutrophils/100 WBC (Bld) 71.6 % High 47-[address] [facility] Comment on above: Performed By: #### L 500.2500, L501.3620, L100.0100 ####[facility] [address] [place], [address] Nucleated RBC (Bld) [#/Vol] 0 10*3/uL Normal 0-[address] [facility] Comment on above: Performed By: #### L 500.2500, L501.3620, L100.0100 ####[facility] [address] [place], [address] Platelet mean volume (Bld) [Entitic vol] 11.7 fL Normal 6.2-12.[address] [facility] Comment on above: Performed By: #### L 500.2500, L501.3620, L100.0100 ####[facility] [address] [place], [address] Platelets (Bld) [#/Vol] 164 10*3/uL Normal 150-[address] [facility] Comment on above: Performed By: #### L 500.2500, L501.3620, L100.0100 ####[facility] [address] [place], [address] RBC (Bld) [#/Vol] 2.62 10*6/uL Low 4.2-5.4 [facility] Comment on above: Performed By: #### L 500.2500, L501.3620, L100.0100 ####[facility] [address] [place], [address] RDW SD 47.1 fl High 35.1-43.[address] [facility] Comment on above: Performed By: #### L 500.2500, L501.3620, L100.0100 ####[facility] [address] [place], [address] WBC (Bld) [#/Vol] 8.8 10*3/uL Normal 4.4-11.0 [facility] Comment on above: Performed By: #### L 500.2500, L501.3620, L100.0100 ####[facility] [address] [place], [address] CPK Total, Creatine Kinaseon 03-09-2025 CPK TOTAL 308 U/L High 24-[address] [facility] Comment on above: Performed By: #### L 500.2500, L501.3620, L100.0100 ####[facility] [address] [place], [address] Consultation - Nephrologyon 03-09-2025 Consultation - Nephrology Normal [facility] Consultation - Surgicalon Consultation - Surgical Normal [facility] Folate [Mass/volume] in Seru m or PlasmaOrdered By: Maddie Merchant on 03-09-2025 Folate [Mass/Vol] 15.10 ng/mL 4.60-34.80 [facility] Folates,Serum (Folic Acid)on 03-09-2025 FOLATES,SERUM 15.10 ng/mL Normal 4.60-34.[address] [facility] Comment on above: Performed By: #### L 506.0200 ####[facility] [address] [place], [address] Kidney and Bladderon 025 Kidney and Bladder Normal [facility] Random urine creatinine natalia urement (mass/volume)Ordered By: Zarina Adler on 03-09-2025 Creatinine Unsp time (U) [Mass/Vol] 37.70 mg/dL 28.00-217.[address] [facility] Serum or plasma creatine kin ase activityOrdered By: Broderick Dempsey on 03-09-2025 CK [Catalytic activity/Vol] 308 U/L High 24-[address] [facility] Urine Cultureon 03-09-2025 URC [address] [facility] Comment on above: Performed By: #### M 100.2200 ####[facility] [address] [place], [address] Urine protein measurement (m ass/volume)Ordered By: Zarina Adler on 03-09-2025 Protein (U) [Mass/Vol] 8.5 mg/dL 0.0-12.0 [facility] Urine protein/creatinine mas s ratioOrdered By: Zarina Adler on 03-09-2025 Protein/Creatinine (U) [Mass ratio] 226 mg/g CRE High 0-[address] [facility] Bedside Glucoseon 03-08-2025 FINGERSTICK GLU 249 mg/dL High 74-[address] [facility] Comment on above: Result Comment: JEREMIAS GEMENT OF PATIENT CARE PER NURSING PROTOCOL Performed By: #### L 501.080 ####[facility] [address] [place], [address] FINGERSTICK GLU 200 mg/dL High 74-[address] [facility] Comment on above: Result Comment: JEREMIAS GEMENT OF PATIENT CARE PER NURSING PROTOCOL Performed By: #### L 501.080 ####[facility] [address] [place], [address] FINGERSTICK GLU 165 mg/dL High 74-[address] [facility] Comment on above: Result Comment: JEREMIAS GEMENT OF PATIENT CARE PER NURSING PROTOCOL Performed By: #### L 501.080 ####[facility] [address] [place], [address] FINGERSTICK GLU 159 mg/dL High 74-[address] [facility] Comment on above: Result Comment: JEREMIAS GEMENT OF PATIENT CARE PER NURSING PROTOCOL Performed By: #### L 501.080 ####[facility] [address] [place], [address] FINGERSTICK GLU 283 mg/dL High 74-[address] [facility] Comment on above: Result Comment: JEREMIAS GEMENT OF PATIENT CARE PER NURSING PROTOCOL Performed By: #### L 501.080 ####[facility] [address] [place], [address] Bilirubin, totalOrdered By: Maddie Merchant on 03-08-2025 Bilirubin [Mass/Vol] 0.25 mg/dL 0.00-1.30 [facility] CBC W/Diff, Automatedon 02-18-2024 Absolute Lymph 1.08 X10 3/uL Normal 0.83-4.[address] [facility] Comment on above: Performed By: #### L 503.6550, L501.3620, L100.0100, L500.4050, L501.9985, L503.0106, L503.6030 ####[facility] [address] [place], [address] Absolute Neut 7.1 X10 3/uL Normal 2.0-7.[address] [facility] Comment on above: Performed By: #### L 503.6550, L501.3620, L100.0100, L500.4050, L501.9985, L503.0106, L503.6030 ####[facility] [address] [place], [address] Basophils/100 WBC (Bld) 0.4 % Normal 0-[address] [facility] Comment on above: Performed By: #### L 503.6550, L501.3620, L100.0100, L500.4050, L501.9985, L503.0106, L503.6030 ####[facility] [address] [place], [address] Eosinophils/100 WBC (Bld) 1.6 % Normal 0-[address] [facility] Comment on above: Performed By: #### L 503.6550, L501.3620, L100.0100, L500.4050, L501.9985, L503.0106, L503.6030 ####[facility] [address] [place], [address] Erythrocyte distribution width (RBC) [Ratio] 14.5 % Normal 11.6-14.[address] [facility] Comment on above: Performed By: #### L 503.6550, L501.3620, L100.0100, L500.4050, L501.9985, L503.0106, L503.6030 ####[facility] [address] [place], [address] Hematocrit (Bld) [Volume fraction] 25.1 % Low 37-[address] [facility] Comment on above: Performed By: #### L 503.6550, L501.3620, L100.0100, L500.4050, L501.9985, L503.0106, L503.6030 ####[facility] [address] [place], [address] Hemoglobin (Bld) [Mass/Vol] 7.9 g/dL Low 12.0-15.[address] [facility] Comment on above: Performed By: #### L 503.6550, L501.3620, L100.0100, L500.4050, L501.9985, L503.0106, L503.6030 ####[facility] [address] [place], [address] IG% 0.700 Normal 0.0-0.[address] [facility] Comment on above: Result Comment: IG% - Immature Granulocytes (promyelocytes, myelocytes andmetamyelocytes) > 1% indicates that a LEFT SHIFT is Present. Performed By: #### L 503.6550, L501.3620, L100.0100, L500.4050, L501.9985, L503.0106, L503.6030 ####[facility] [address] [place], [address] Lymphocytes/100 WBC (Bld) 11.7 % Low 19-[address] [facility] Comment on above: Performed By: #### L 503.6550, L501.3620, L100.0100, L500.4050, L501.9985, L503.0106, L503.6030 ####[facility] [address] [place], [address] MCH (RBC) [Entitic mass] 28.2 pg Normal 27.0-32.[address] [facility] Comment on above: Performed By: #### L 503.6550, L501.3620, L100.0100, L500.4050, L501.9985, L503.0106, L503.6030 ####[facility] [address] [place], [address] MCHC (RBC) [Mass/Vol] 31.5 g/dL Low 32-36 [facility] Comment on above: Performed By: #### L 503.6550, L501.3620, L100.0100, L500.4050, L501.9985, L503.0106, L503.6030 ####[facility] [address] [place], [address] MCV (RBC) [Entitic vol] 89.6 fL Normal 81-[address] [facility] Comment on above: Performed By: #### L 503.6550, L501.3620, L100.0100, L500.4050, L501.9985, L503.0106, L503.6030 ####[facility] [address] [place], [address] Monocytes/100 WBC (Bld) 9.1 % Normal 0-[address] [facility] Comment on above: Performed By: #### L 503.6550, L501.3620, L100.0100, L500.4050, L501.9985, L503.0106, L503.6030 ####[facility] [address] [place], [address] Neutrophils/100 WBC (Bld) 76.5 % High 47-[address] [facility] Comment on above: Performed By: #### L 503.6550, L501.3620, L100.0100, L500.4050, L501.9985, L503.0106, L503.6030 ####[facility] [address] [place], [address] Nucleated RBC (Bld) [#/Vol] 0 10*3/uL Normal 0-[address] [facility] Comment on above: Performed By: #### L 503.6550, L501.3620, L100.0100, L500.4050, L501.9985, L503.0106, L503.6030 ####[facility] [address] [place], [address] Platelet mean volume (Bld) [Entitic vol] 11.6 fL Normal 6.2-12.[address] [facility] Comment on above: Performed By: #### L 503.6550, L501.3620, L100.0100, L500.4050, L501.9985, L503.0106, L503.6030 ####[facility] [address] [place], [address] Platelets (Bld) [#/Vol] 185 10*3/uL Normal 150-[address] [facility] Comment on above: Performed By: #### L 503.6550, L501.3620, L100.0100, L500.4050, L501.9985, L503.0106, L503.6030 ####[facility] [address] [place], [address] RBC (Bld) [#/Vol] 2.80 10*6/uL Low 4.2-5.4 [facility] Comment on above: Performed By: #### L 503.6550, L501.3620, L100.0100, L500.4050, L501.9985, L503.0106, L503.6030 ####[facility] [address] [place], [address] RDW SD 46.7 fl High 35.1-43.[address] [facility] Comment on above: Performed By: #### L 503.6550, L501.3620, L100.0100, L500.4050, L501.9985, L503.0106, L503.6030 ####[facility] [address] [place], [address] WBC (Bld) [#/Vol] 9.2 10*3/uL Normal 4.4-11.0 [facility] Comment on above: Performed By: #### L 503.6550, L501.3620, L100.0100, L500.4050, L501.9985, L503.0106, L503.6030 ####[facility] [address] [place], [address] CPK Total, Creatine Kinaseon 03-08-2025 CPK TOTAL 736 U/L High 24-[address] [facility] Comment on above: Performed By: #### L 503.6550, L501.3620, L100.0100, L500.4050, L501.9985, L503.0106, L503.6030 ####[facility] [address] [place], [address] Comprehensive Metabolic Prof ilon 03-08-2025 Albumin [Mass/Vol] 2.6 g/dL Low 3.4-4.8 [facility] Comment on above: Performed By: #### L 503.6550, L501.3620, L100.0100, L500.4050, L501.9985, L503.0106, L503.6030 ####[facility] [address] [place], [address] Albumin/Globulin [Mass ratio] 1.1 {ratio} Normal 0.9-2.[address] [facility] Comment on above: Performed By: #### L 503.6550, L501.3620, L100.0100, L500.4050, L501.9985, L503.0106, L503.6030 ####[facility] [address] [place], [address] ALK PHOS 58 U/L Normal 35-[address] [facility] Comment on above: Performed By: #### L 503.6550, L501.3620, L100.0100, L500.4050, L501.9985, L503.0106, L503.6030 ####[facility] [address] [place], [address] ALT [Catalytic activity/Vol] 48 U/L High <=[address] [facility] Comment on above: Performed By: #### L 503.6550, L501.3620, L100.0100, L500.4050, L501.9985, L503.0106, L503.6030 ####[facility] [address] [place], [address] AST [Catalytic activity/Vol] 45 U/L High <=[address] [facility] Comment on above: Performed By: #### L 503.6550, L501.3620, L100.0100, L500.4050, L501.9985, L503.0106, L503.6030 ####[facility] [address] [place], [address] Bilirubin [Mass/Vol] 0.25 mg/dL Normal 0.00-1.30 [facility] Comment on above: Performed By: #### L 503.6550, L501.3620, L100.0100, L500.4050, L501.9985, L503.0106, L503.6030 ####[facility] [address] [place], [address] BUN/CRE 52.5 RATIO High 10-[address] [facility] Comment on above: Performed By: #### L 503.6550, L501.3620, L100.0100, L500.4050, L501.9985, L503.0106, L503.6030 ####[facility] [address] [place], [address] Calcium [Mass/Vol] 8.1 mg/dL Normal 7.6-11.0 [facility] Comment on above: Performed By: #### L 503.6550, L501.3620, L100.0100, L500.4050, L501.9985, L503.0106, L503.6030 ####[facility] [address] [place], [address] Chloride [Moles/Vol] 111 mmol/L High 98-108 [facility] Comment on above: Performed By: #### L 503.6550, L501.3620, L100.0100, L500.4050, L501.9985, L503.0106, L503.6030 ####[facility] [address] [place], [address] CO2 [Moles/Vol] 17.3 mmol/L Low 21.0-32.[address] [facility] Comment on above: Performed By: #### L 503.6550, L501.3620, L100.0100, L500.4050, L501.9985, L503.0106, L503.6030 ####[facility] [address] [place], [address] Creatinine [Mass/Vol] 2.02 mg/dL High 0.70-1.20 [facility] Comment on above: Performed By: #### L 503.6550, L501.3620, L100.0100, L500.4050, L501.9985, L503.0106, L503.6030 ####[facility] [address] [place], [address] ECRCL 25.62 ml/min Low 50-[address] [facility] Comment on above: Performed By: #### L 503.6550, L501.3620, L100.0100, L500.4050, L501.9985, L503.0106, L503.6030 ####[facility] [address] [place], [place], [phone]) GAP 14 Normal 5-[address] [facility] Comment on above: Performed By: #### L 503.6550, L501.3620, L100.0100, L500.4050, L501.9985, L503.0106, L503.6030 ####[facility] [address] [place], [place], [address] GFR/1.73 sq M.predicted among non-blacks MDRD (S/P/Bld) [Vol rate/Area] 26 mL/min/{1.73_m2} Low >[address] [facility] Comment on above: Result Comment: mL/m in/1.73m2 CKD-EPI Creatinine Equation (2020) Performed By: #### L 503.6550, L501.3620, L100.0100, L500.4050, L501.9985, L503.0106, L503.6030 ####[facility] [address] [place], [place], [phone] Globulin (S) [Mass/Vol] 2.4 g/dL Normal 2.2-4.[address] [facility] Comment on above: Performed By: #### L 503.6550, L501.3620, L100.0100, L500.4050, L501.9985, L503.0106, L503.6030 ####[facility] [address] [place], [address] Glucose [Mass/Vol] 172 mg/dL High 70-99 [facility] Comment on above: Performed By: #### L 503.6550, L501.3620, L100.0100, L500.4050, L501.9985, L503.0106, L503.6030 ####[facility] [address] [place], [address] Potassium [Moles/Vol] 3.8 mmol/L Normal 3.3-5.1 [facility] Comment on above: Performed By: #### L 503.6550, L501.3620, L100.0100, L500.4050, L501.9985, L503.0106, L503.6030 ####[facility] [address] [place], [address] Sodium [Moles/Vol] 143 mmol/L Normal 133-145 [facility] Comment on above: Performed By: #### L 503.6550, L501.3620, L100.0100, L500.4050, L501.9985, L503.0106, L503.6030 ####[facility] [address] [place], [address] T PROT 5.1 g/dL Low 5.9-8.[address] [facility] Comment on above: Performed By: #### L 503.6550, L501.3620, L100.0100, L500.4050, L501.9985, L503.0106, L503.6030 ####[facility] [address] [place], [address] Urea nitrogen [Mass/Vol] 106 mg/dL Invalid Interpretation Code 4-[address] [facility] Comment on above: Result Comment: Crit ical Result(s) Called at: by:??Results read back bysame.Critical Result(s) Called to Zoraida PENNINGTON (MS3): Blaiser:??Results read back by same. Performed By: #### L 503.6550, L501.3620, L100.0100, L500.4050, L501.9985, L503.0106, L503.6030 ####[facility] [address] [place], [address] Ferritinon 03-08-2025 Ferritin [Mass/Vol] 270 ng/mL Normal 22-378 [facility] Comment on above: Performed By: #### L 503.6550, L501.3620, L100.0100, L500.4050, L501.9985, L503.0106, L503.6030 ####[facility] [address] [place], [address] HH, Hemoglobin AND Hematocri ton 03-08-2025 Hematocrit (Bld) [Volume fraction] 24.0 % Low 37-[address] [facility] Comment on above: Performed By: #### L 100.0600 ####[facility] [address] [place], [address] Hemoglobin (Bld) [Mass/Vol] 7.7 g/dL Low 12.0-15.[address] [facility] Comment on above: Performed By: #### L 100.0600 ####[facility] [address] [place], [address] Hemoglobin A1con 03-08-2025 HbA1c (Bld) [Mass fraction] 6.5 % High <=5.[address] [facility] Comment on above: Result Comment: Norm al < 5.7 % Prediabetic 5.7 - 6.4 % Diabetic >or= 6.5 % Please note range changes. Performed By: #### L 503.6550, L501.3620, L100.0100, L500.4050, L501.9985, L503.0106, L503.6030 ####[facility] [address] [place], [address] Hemoglobin A1c percentageOrd ered By: Maddie Merchant on 03-08-2025 HbA1c (Bld) [Mass fraction] 6.5 % High <5.[address] [facility] Comment on above: Normal < 5.7 % Predi abetic 5.7 - 6.4 % Diabetic >or= 6.5 % Please note range changes. Iron measurement (mass/mass) Ordered By: Maddie Merchant on 03-08-2025 Iron (Unsp spec) [Mass/Mass] 18 ug/dL Low 50-[address] [facility] Iron+Iron Binding Capacityon 03-08-2025 TIBC TNP Normal 250-[address] [facility] Comment on above: Performed By: #### L 503.6550, L501.3620, L100.0100, L500.4050, L501.9985, L503.0106, L503.6030 ####[facility] [address] [place], [address] Laboratory - Chemistry and C hemistry - challengeOrdered By: Maddie Merchant on 03-08-2025 AST [Catalytic activity/Vol] 45 U/L High <[address] [facility] No Panel InformationOrdered By: Maddie Merchant on 03-08-2025 Unsaturated Iron Binding Capacity 150 ug/dL Low 228-[address] [facility] 45 U/L High <[address] [facility] 150 ug/dL Low 228-[address] [facility] Serum globulin measurementOr dered By: Maddie Merchant on 03-08-2025 Globulin (S) [Mass/Vol] 2.4 g/dL 2.2-4.[address] [facility] Serum or plasma alanine anaya otransferase (ALT) measurementOrdered By: Maddie Merchant 03-08-2025 ALT [Catalytic activity/Vol] 48 U/L High <[address] [facility] Serum or plasma albumin natalia urement (mass/volume)Ordered By: Maddie Merchant on 03-08-2025 Albumin [Mass/Vol] 2.6 g/dL Low 3.4-4.8 [facility] Serum or plasma albumin/glob ulin mass ratioOrdered By: Maddie Merchant 03-08-2025 Albumin/Globulin [Mass ratio] 1.1 {ratio} 0.9-2.[address] [facility] Serum or plasma alkaline chelsie sphatase measurementOrdered By: Maddie Merchant 03-08-2025 ALP [Catalytic activity/Vol] 58 U/L 35-[address] [facility] Serum or plasma ferritin areli surement (mass/volume)Ordered By: Maddie Merchant on 03-08-2025 Ferritin [Mass/Vol] 270 ng/mL 22-378 [facility] Serum or plasma iron saturat ion measurement (mass fraction)Ordered By: Maddie Merchant on 03-08-2025 Iron saturation [Mass fraction] 11.0 % Low 13-[address] [facility] Total proteinOrdered By: Aut laila Merchant on 03-08-2025 Protein [Mass/Vol] 5.1 g/dL Low 5.9-8.4 [facility] Vitamin B12on 03-08-2025 Cobalamin (Vitamin B12) [Mass/Vol] 3538 pg/mL High 180-[address] [facility] Comment on above: Performed By: #### L 503.6550, L501.3620, L100.0100, L500.4050, L501.9985, L503.0106, L503.6030 ####[facility] [address] [place], [place], [id number] Vitamin B12 ser/plasOrdered By: Maddie Merchant on 03-08-2025 Cobalamin (Vitamin B12) [Mass/Vol] 3538 pg/mL High 180-[address] [facility] 12 Lead EKGon 03-07-2025 12 Lead EKG Normal [facility] Absolute neutrophil countOrd ered By: Megan Anderson on 03-07-2025 Neutrophils (Bld) [#/Vol] 12.9 10*3/uL High 2.0-7.[address] [facility] Anion gap in Serum or Plasma Ordered By: Megan Anderson on 03-07-2025 Anion gap [Moles/Vol] 18 mmol/L High 04-02 [facility] BUN/creatinine ratioOrdered By: Megan Anderson on 03-07-2025 Urea nitrogen/Creatinine [Mass ratio] 51.2 mg/mg High 09-[address] [facility] Basic Metabolic Profile (BMP )on 03-07-2025 BUN/CRE 51.2 RATIO High 09-[address] [facility] Comment on above: Performed By: #### L 500.2500, L100.0100, L501.3620 ####[facility] [address] [place], [address] Calcium [Mass/Vol] 8.8 mg/dL Normal 7.6-11.0 [facility] Comment on above: Performed By: #### L 500.2500, L100.0100, L501.3620 ####[facility] [address] [place], [address] Chloride [Moles/Vol] 105 mmol/L Normal 98-108 [facility] Comment on above: Performed By: #### L 500.2500, L100.0100, L501.3620 ####[facility] [address] [place], [address] CO2 [Moles/Vol] 16.8 mmol/L Low 21.0-32.[address] [facility] Comment on above: Performed By: #### L 500.2500, L100.0100, L501.3620 ####[facility] [address] [place], [address] Creatinine [Mass/Vol] 2.54 mg/dL High 0.70-1.20 [facility] Comment on above: Performed By: #### L 500.2500, L100.0100, L501.3620 ####[facility] [address] [place], [address] ECRCL 20.75 ml/min Low 50-[address] [facility] Comment on above: Performed By: #### L 500.2500, L100.0100, L501.3620 ####[facility] [address] [place], [address] GAP 18 High 5-[address] [facility] Comment on above: Performed By: #### L 500.2500, L100.0100, L501.3620 ####[facility] [address] [place], [address] GFR/1.73 sq M.predicted among non-blacks MDRD (S/P/Bld) [Vol rate/Area] 19 mL/min/{1.73_m2} Low >[address] [facility] Comment on above: Result Comment: mL/m in/1.73m2 CKD-EPI Creatinine Equation (2020) Performed By: #### L 500.2500, L100.0100, L501.3620 ####[facility] [address] [place], [address] Glucose [Mass/Vol] 178 mg/dL High 70-99 [facility] Comment on above: Performed By: #### L 500.2500, L100.0100, L501.3620 ####[facility] [address] [place], [address] Potassium [Moles/Vol] 4.5 mmol/L Normal 3.3-5.1 [facility] Comment on above: Performed By: #### L 500.2500, L100.0100, L501.3620 ####[facility] [address] [place], [address] Sodium [Moles/Vol] 140 mmol/L Normal 133-145 [facility] Comment on above: Performed By: #### L 500.2500, L100.0100, L501.3620 ####[facility] [address] [place], [address] Urea nitrogen [Mass/Vol] 130 mg/dL Invalid Interpretation Code 03-[address] [facility] Comment on above: Result Comment: Crit ical Result(s) Called at: by:??Results read back bysame.Critical Result(s) Called ACOLE at: 1532 by:CHRISTIN??Results read back by same. Performed By: #### L 500.2500, L100.0100, L501.3620 ####[facility] [address] [place], [address] Basophil percentageOrdered B y: Megan Anderson on 03-07-2025 Basophils/100 WBC (Bld) 0.3 % 0-[address] [facility] Bilirubin Test strip Ql (U)O rdered By: Megan Anderson on 03-07-2025 Bilirubin Ql (U) Negative Negative [facility] Bilirubin directOrdered By: Maddie Merchant on 03-07-2025 Bilirubin.direct [Mass/Vol] 0.25 mg/dL 0.00-0.[address] [facility] CBC W/Diff, Automatedon 02-17 Absolute Lymph 0.76 X10 3/uL Low 0.83-4.[address] [facility] Comment on above: Performed By: #### L 500.2500, L100.0100, L501.3620 ####[facility] [address] [place], [address] Absolute Neut 12.9 X10 3/uL High 2.0-7.[address] [facility] Comment on above: Performed By: #### L 500.2500, L100.0100, L501.3620 ####[facility] [address] [place], [address] Basophils/100 WBC (Bld) 0.3 % Normal 0-[address] [facility] Comment on above: Performed By: #### L 500.2500, L100.0100, L501.3620 ####[facility] [address] [place], [address] Eosinophils/100 WBC (Bld) 0.4 % Normal 0-[address] [facility] Comment on above: Performed By: #### L 500.2500, L100.0100, L501.3620 ####[facility] [address] [place], [address] Erythrocyte distribution width (RBC) [Ratio] 14.5 % Normal 11.6-14.[address] [facility] Comment on above: Performed By: #### L 500.2500, L100.0100, L501.3620 ####[facility] [address] [place], [address] Hematocrit (Bld) [Volume fraction] 27.2 % Low 37-[address] [facility] Comment on above: Performed By: #### L 500.2500, L100.0100, L501.3620 ####[facility] [address] [place], [address] Hemoglobin (Bld) [Mass/Vol] 8.7 g/dL Low 12.0-15.[address] [facility] Comment on above: Performed By: #### L 500.2500, L100.0100, L501.3620 ####[facility] [address] [place], [address] IG% 1.000 High 0.0-0.[address] [facility] Comment on above: Result Comment: IG% - Immature Granulocytes (promyelocytes, myelocytes andmetamyelocytes) > 1% indicates that a LEFT SHIFT is Present. Performed By: #### L 500.2500, L100.0100, L501.3620 ####[facility] [address] [place], [address] Lymphocytes/100 WBC (Bld) 5.2 % Low 19-[address] [facility] Comment on above: Performed By: #### L 500.2500, L100.0100, L501.3620 ####[facility] [address] [place], [address] MCH (RBC) [Entitic mass] 28.3 pg Normal 27.0-32.[address] [facility] Comment on above: Performed By: #### L 500.2500, L100.0100, L501.3620 ####[facility] [address] [place], [address] MCHC (RBC) [Mass/Vol] 32.0 g/dL Normal 32-36 [facility] Comment on above: Performed By: #### L 500.2500, L100.0100, L501.3620 ####[facility] [address] [place], [address] MCV (RBC) [Entitic vol] 88.6 fL Normal 81-[address] [facility] Comment on above: Performed By: #### L 500.2500, L100.0100, L501.3620 ####[facility] [address] [place], [address] Monocytes/100 WBC (Bld) 5.3 % Normal 0-[address] [facility] Comment on above: Performed By: #### L 500.2500, L100.0100, L501.3620 ####[facility] [address] [place], [address] Neutrophils/100 WBC (Bld) 87.8 % High 47-[address] [facility] Comment on above: Performed By: #### L 500.2500, L100.0100, L501.3620 ####[facility] [address] [place], [address] Nucleated RBC (Bld) [#/Vol] 0 10*3/uL Normal 0-[address] [facility] Comment on above: Performed By: #### L 500.2500, L100.0100, L501.3620 ####[facility] [address] [place], [address] Platelet mean volume (Bld) [Entitic vol] 11.3 fL Normal 6.2-12.[address] [facility] Comment on above: Performed By: #### L 500.2500, L100.0100, L501.3620 ####[facility] [address] [place], [address] Platelets (Bld) [#/Vol] 216 10*3/uL Normal 150-[address] [facility] Comment on above: Performed By: #### L 500.2500, L100.0100, L501.3620 ####[facility] [address] [place], [address] RBC (Bld) [#/Vol] 3.07 10*6/uL Low 4.2-5.4 [facility] Comment on above: Performed By: #### L 500.2500, L100.0100, L501.3620 ####[facility] [address] [place], [address] RDW SD 45.6 fl High 35.1-43.[address] [facility] Comment on above: Performed By: #### L 500.2500, L100.0100, L501.3620 ####[facility] [address] [place], [address] WBC (Bld) [#/Vol] 14.7 10*3/uL High 4.4-11.0 [facility] Comment on above: Performed By: #### L 500.2500, L100.0100, L501.3620 ####[facility] [address] [place], [address] CPK Total, Creatine Kinaseon 03-07-2025 CPK TOTAL 837 U/L High 24-[address] [facility] Comment on above: Performed By: #### L 500.2500, L100.0100, L501.3620 ####[facility] [address] [place], [address] Carbon dioxide, total [Moles /volume] in Central venous bloodOrdered By: Megan Anderson on 03-07-2025 CO2 [Moles/Vol] 16.8 mmol/L Low 21.0-32.[address] [facility] Chest 1 View (Portable)on Chest 1 View (Portable) Normal [facility] Chloride assayOrdered By: Teri Anderson on 03-07-2025 Chloride [Moles/Vol] 105 mmol/L 98-108 [facility] Emergency Department Summary on 03-07-2025 Emergency Department Summary Normal [facility] Eosinophil percentageOrdered By: Megan Anderson on 03-07-2025 Eosinophils/100 WBC (Bld) 0.4 % 0-[address] [facility] Epithelial cells.squamous LM Ql (Urine sed)Ordered By: Megan Anderson on 03-07-2025 Epithelial cells.squamous LM.HPF (Urine sed) [#/Area] 0 /[HPF] 5-[address] [facility] Erythrocyte distribution wid th (RBC) [Ratio]Ordered By: Megan Anderson on 03-07-2025 Erythrocyte distribution width (RBC) [Entitic vol] 45.6 fL High 35.1-43.[address] [facility] Erythrocyte distribution wid th ratioOrdered By: Megan Anderson on 03-07-2025 Erythrocyte distribution width (RBC) [Ratio] 14.5 % 11.6-14.[address] [facility] Estimation of creatinine chirag aranceOrdered By: Megan Anderson on 03-07-2025 Estimated Creatinine Clearance Calc 20.75 ml/min Low 50-[address] [facility] GFR/1.73 sq M.predicted sadia g non-blacks MDRD (S/P/Bld) [Vol rate/Area]Ordered By: Megan Anderson on 03-07-2025 Estimated GFR (MDRD) Non-Af Amer 19 Low >[address] [facility] Comment on above: mL/min/1.73m2 CKD-EP I Creatinine Equation (2020) Glucose Ql (U)Ordered By: Teri Anderson on 03-07-2025 Urine Glucose (UA) Normal mg/dl Normal [facility] H AND P Exam - Hospitaliston 03-07-2025 H&P Exam - Hospitalist Normal [facility] HH, Hemoglobin AND Hematocri ton 03-07-2025 Hematocrit (Bld) [Volume fraction] 25.0 % Low 37-[address] [facility] Comment on above: Performed By: #### L 100.0600 ####[facility] [address] [place], [place], [id number] Hemoglobin (Bld) [Mass/Vol] 8.3 g/dL Low 12.0-15.[address] [facility] Comment on above: Performed By: #### L 100.0600 ####[facility] [address] [place], [address] HIP, UNI W/ Pelvis 2-3 Views on 03-07-2025 HIP, UNI W/ Pelvis 2-3 Views [address] [facility] Hematocrit Auto (Bld) [Volum e fraction]Ordered By: Megan Anderson on 03-07-2025 Hematocrit (Bld) [Volume fraction] 27.2 % Low 37-[address] [facility] Hemoglobin measurementOrdere d By: Megan Anderson on 03-07-2025 Hemoglobin (Bld) [Mass/Vol] 8.7 g/dL Low 12.0-15.[address] [facility] Immature granulocytes/100 WB C Auto (Bld)Ordered By: Megan Anderson on 03-07-2025 Immature granulocytes/100 WBC (Bld) 1.000 % High 0.0-0.[address] [facility] Comment on above: IG% - Immature Granu locytes (promyelocytes, myelocytes and metamyelocytes) > 1% indicates that a LEFT SHIFT is Present. Ketones Test strip Ql (U)Ord ered By: Megan Anderson on 03-07-2025 Ketones Ql (U) 5 mg/dl High Negative [facility] Liver Profileon 03-07-2025 Albumin [Mass/Vol] 3.1 g/dL Low 3.4-4.8 [facility] Comment on above: Order Comment: Comme nts: May add to ED labsComments: may add to ED labs Performed By: #### L 501.2300, L500.3400, L501.5200 ####[facility] [address] [place], [address] ALK PHOS 66 U/L Normal 35-[address] [facility] Comment on above: Order Comment: Comme nts: May add to ED labsComments: may add to ED labs Performed By: #### L 501.2300, L500.3400, L501.5200 ####[facility] [address] [place], [address] ALT [Catalytic activity/Vol] 60 U/L High <=[address] [facility] Comment on above: Order Comment: Comme nts: May add to ED labsComments: may add to ED labs Performed By: #### L 501.2300, L500.3400, L501.5200 ####[facility] [address] [place], [address] AST [Catalytic activity/Vol] 52 U/L High <=[address] [facility] Comment on above: Order Comment: Comme nts: May add to ED labsComments: may add to ED labs Performed By: #### L 501.2300, L500.3400, L501.5200 ####[facility] [address] [place], [address] Bilirubin [Mass/Vol] 0.42 mg/dL Normal 0.00-1.30 [facility] Comment on above: Order Comment: Comme nts: May add to ED labsComments: may add to ED labs Performed By: #### L 501.2300, L500.3400, L501.5200 ####[facility] [address] [place], [address] Bilirubin.direct [Mass/Vol] 0.25 mg/dL Normal 0.00-0.[address] [facility] Comment on above: Order Comment: Comme nts: May add to ED labsComments: may add to ED labs Performed By: #### L 501.2300, L500.3400, L501.5200 ####[facility] [address] [place], [address] Globulin (S) [Mass/Vol] 2.8 g/dL Normal 2.2-4.[address] [facility] Comment on above: Order Comment: Comme nts: May add to ED labsComments: may add to ED labs Performed By: #### L 501.2300, L500.3400, L501.5200 ####[facility] [address] [place], [address] T PROT 5.9 g/dL Normal 5.9-8.[address] [facility] Comment on above: Order Comment: Comme nts: May add to ED labsComments: may add to ED labs Performed By: #### L 501.2300, L500.3400, L501.5200 ####[facility] [address] [place], [place], [id number] Lower GI hemoglobin IA Ql (S tl)Ordered By: Megan Anderson on 03-07-2025 Stool Occult Blood (ERICA) Positive Abnormal [facility] Lymphocytes Auto (Unsp spec) [#/Vol]Ordered By: Megan Anderson on 03-07-2025 Lymphocytes (Bld) [#/Vol] 0.76 10*3/uL Low 0.83-4.[address] [facility] Lymphocytes/100 WBC Auto (Un sp spec)Ordered By: Megan Anderson on 03-07-2025 Lymphocytes/100 WBC (Bld) 5.2 % Low 19-[address] [facility] MCV (mean corpuscular volume ) determinationOrdered By: Megan Anderson on 03-07-2025 MCV (RBC) [Entitic vol] 88.6 fL 81-[address] [facility] Magnesiumon 03-07-2025 Magnesium [Mass/Vol] 2.9 mg/dL High 1.5-2.2 [facility] Comment on above: Order Comment: Comme nts: May add to ED labsComments: may add to ED labs Performed By: #### L 501.2300, L500.3400, L501.5200 ####[facility] [address] [place], [place], [id number] Magnesium measurement (mass/ volume)Ordered By: Maddie Merchant on 03-07-2025 Magnesium (Unsp spec) [Mass/Vol] 2.9 mg/dL High 1.5-2.[address] [facility] Mean corpuscular hemoglobin (MCH) determinationOrdered By: Megan Anderson on 03-07-2025 MCH (RBC) [Entitic mass] 28.3 pg 27.0-32.[address] [facility] Mean corpuscular hemoglobin concentration (MCHC) determinationOrdered By: Megan Anderson on 03-07-2025 MCHC (RBC) [Mass/Vol] 32.0 g/dL 32-36 [facility] Mean platelet volume determi nationOrdered By: Megan Anderson on 03-07-2025 Platelet mean volume (Bld) [Entitic vol] 11.3 fL 6.2-12.[address] [facility] Microscopic analysis of urin e for red blood cells (RBC)Ordered By: Megan Anderson on 03-07-2025 Microscopic analysis of urine for red blood cells (RBC) 0 SEEN /hpf 0-[address] [facility] Urine RBC 0 SEEN /hpf 0-[address] [facility] Monocyte percentageOrdered B y: Megan Anderson on 03-07-2025 Monocytes/100 WBC (Bld) 5.3 % 0-[address] [facility] Mucus LM Ql (Urine sed)Order ed By: Megan Anderson on 03-07-2025 Mucus Ql (Urine sed) 0 SEEN /hpf [facility] Neutrophil percentageOrdered By: Megan Anderson on 03-07-2025 Neutrophils/100 WBC (Bld) 87.8 % High 47-[address] [facility] Nitrite Test strip Ql (U)Ord ered By: Megan Anderson on 03-07-2025 Nitrite Ql (U) Positive High Negative [facility] Nucleated red blood cell per centageOrdered By: Megan Anderson on 03-07-2025 Nucleated RBC/100 WBC (Bld) [Ratio] 0 % 0-[address] [facility] Phosphoruson 03-07-2025 Phosphate [Mass/Vol] 5.0 mg/dL High 2.7-4.5 [facility] Comment on above: Order Comment: Comme nts: May add to ED labsComments: may add to ED labs Performed By: #### L 501.2300, L500.3400, L501.5200 ####[facility] [address] [place], [address] Platelet countOrdered By: Teri Anderson on 03-07-2025 Platelets (Bld) [#/Vol] 216 10*3/uL 150-[address] [facility] Potassium (Unsp spec) [Mass/ Vol]Ordered By: Megan Anderson on 03-07-2025 Potassium [Moles/Vol] 4.5 mmol/L 3.3-5.1 [facility] Protein Test strip Ql (U)Ord ered By: Megan Anderson on 03-07-2025 Protein Ql (U) 30 mg/dl High Negative [facility] RBC Auto (Bld) [#/Vol]Ordere d By: Megan Anderson on 03-07-2025 RBC (Bld) [#/Vol] 3.07 10*6/uL Low 4.2-5.4 [facility] Serum creatinine measurement (mass/volume)Ordered By: Megan Anderson on 03-07-2025 Creatinine [Mass/Vol] 2.54 mg/dL High 0.70-1.20 [facility] Serum glucose measurement (m ass/volume)Ordered By: Meagn Anderson on 03-07-2025 Glucose [Mass/Vol] 178 mg/dL High 70-99 [facility] Serum or plasma calcium natalia urement (mass/volume)Ordered By: Megan Anderson on 03-07-2025 Calcium [Mass/Vol] 8.8 mg/dL 7.6-11.0 [facility] Serum or plasma creatine kin ase activityOrdered By: Megan Anderson on 03-07-2025 CK [Catalytic activity/Vol] 837 U/L High 24-[address] [facility] Serum or plasma urea nitroge n measurement (mass/volume)Ordered By: Megan Anderson on 03-07-2025 Urea nitrogen [Mass/Vol] 130 mg/dL High 4-[address] [facility] Comment on above: Critical Result(s) C alled at: by: Results read back by same.Critical Result(s) Called ACOLE at: 1532 by: CHRISTIN Results read back by same. Sodium levelOrdered By: Megan Anderson on 03-07-2025 Sodium [Moles/Vol] 140 mmol/L 133-145 [facility] Squamous epithelial cells de tection in urine sediment by light microscopyOrdered By: Megan Anderson on 03-07-2025 Epithelial cells.squamous LM Ql (Urine sed) 0 SEEN /hpf 5-[address] [facility] Stool Occult Blood iFOBon STOB Positive Normal [facility] Comment on above: Performed By: #### M 100.7900 ####[facility] [facility] [address] [place], [address] Stool gastrointestinal hemog lobin detection by immunologic methodOrdered By: Megan Anderson on 03-07-2025 Lower GI hemoglobin IA Ql (Stl) Positive Abnormal [facility] Type AND Screenon 03-07-2025 ABO and Rh group Nom (Bld) Blood group A Rh(D) positive Normal [facility] Comment on above: Order Comment: HGI Performed By: #### B TS ####[facility] [address] [place], [address] Urinalysis, Completeon 03-07 BACTERIA 1+ /hpf Normal None Seen [facility] Comment on above: Order Comment: CORRIE CTOR TO SPECIFY Performed By: #### L 400.0001 ####[facility] [address] [place], [address] WBC >100 SEEN Normal 0-[address] [facility] Comment on above: Order Comment: CORRIE CTOR TO SPECIFY Performed By: #### L 400.0001 ####[facility] [address] [place], [address] EPI,SQUAMOUS 0 SEEN Normal 5-[address] [facility] Comment on above: Order Comment: CORRIE CTOR TO SPECIFY Performed By: #### L 400.0001 ####[facility] [address] [place], [address] Mucus Ql (Urine sed) 0 SEEN Normal [facility] Comment on above: Order Comment: CORRIE CTOR TO SPECIFY Performed By: #### L 400.0001 ####[facility] [address] [place], [address] RBC 0 SEEN Normal 0-[address] [facility] Comment on above: Order Comment: CORRIE CTOR TO SPECIFY Performed By: #### L 400.0001 ####[facility] [address] [place], [address] Urine blood detectionOrdered By: Megan Anderson on 03-07-2025 Urine Occult Blood 150 /ul High Negative [facility] Urine clarityOrdered By: Carmen Anderson on 03-07-2025 Clarity (U) Cloudy Clear [facility] Urine color determinationOrd ered By: Megan Anderson on 03-07-2025 Color (U) Yellow Yellow [facility] Urine cultureOrdered By: Mervin Becker on 03-07-2025 Bacteria identified Cx Nom (U) Klebsiella oxytoca Abnormal [facility] Urine glucose detectionOrder ed By: Megan Anderson on 03-07-2025 Glucose Ql (U) Normal mg/dl Normal [facility] Urine leukocyte esterase det ection by dipstickOrdered By: Megan Anderson on 03-07-2025 Leukocyte esterase Test strip Ql (U) 500 /ul High Negative [facility] Urine pHOrdered By: Megan louis on 03-07-2025 pH (U) 6.0 [pH] 5.0 - 8.[address] [facility] Urine sediment bacteria coun t by microscopy (number/high power field)Ordered By: Megan Anderson on 03-07-2025 Bacteria LM.HPF (Urine sed) [#/Area] 1 /[HPF] None Seen [facility] Urine specific gravity measu rementOrdered By: Megan Anderson on 03-07-2025 Specific gravity (U) [Rel density] 1.015 1.002-1.[address] [facility] Urine urobilinogen measureme ntOrdered By: Megan Anderson on 03-07-2025 Urobilinogen Ql (U) Normal mg/dl Normal [facility] Urobilinogen Ql (U)Ordered B y: Megan Anderson on 03-07-2025 Urine Urobilinogen Normal mg/dl Normal [facility] White blood cell (WBC) count Ordered By: Megan Anderson on 03-07-2025 WBC (Bld) [#/Vol] 14.7 10*3/uL High 4.4-11.0 [facility] White blood cell countOrdere d By: Megan Anderson on 03-07-2025 Urine WBC >100 SEEN /hpf 0-[address] [facility] White blood cell count >100 SEEN /hpf 0-[address] [facility] Culture, Anaerobic Any Sourc adonis 2025 CUAN Normal [facility] Comment on above: Performed By: #### M 100.3000, M100.4001, M1.1999 ####[facility] [address] [place], [address] Wound Cultureon 02-28-[address] WC [address] [facility] Comment on above: Performed By: #### M 100.3000, M100.4001, M1.1999 ####[facility] [address] [place], [address] Gram Stainon 02-27-2025 GS LEFT FOOT WOUND GRAM STAIN Gram Stain No Epithelial cells 1+ Gram positive cocci 1+ White Blood Cells Normal [facility] Comment on above: Performed By: #### M 100.3000, M100.4001, M1.1999 ####[facility] [address] [place], [address] Anaerobic cultureOrdered By: Patel Irene on 02-26-2025 Bacteria identified Anaer cx Nom (Unsp spec) Anaerobic cocci Abnormal [facility] Bacteria identified Anaer cx Nom (Unsp spec)Ordered By: Patel Ierne on 02-26-2025 Anaerobic Culture Anaerobic cocci Abnormal [facility] Gram stainOrdered By: Keri Irene on 02-26-2025 Microscopic observation Gram stain Nom (Unsp spec) [facility] Routine wound cultureOrdered By: Patel Irene on 02-26-2025 Microbial culture, routine Meth. resistant Staph. aureus Abnormal [facility] Wound Culture Meth. resistant Stap h. aureus Abnormal [facility] Wound Cultureon 02-19-2025 WC Normal [facility] Comment on above: Performed By: #### M 100.2000, M100.3000 ####[facility] [address] [place], [address] Gram Stainon 02-17-2025 GS Gram Stain No White Blood Cells No organisms seen Normal [facility] Comment on above: Performed By: #### M 100.2000, M100.3000 ####[facility] [address] [place], [address] Decalcification bone/plaqueo n 02-16-2025 Decalcification bone/plaque Normal [facility] Comment on above: Performed By: #### P DEC ####[facility] [address] [place], [address] Gram stainOrdered By: Rishi Vasquez on 02-16-2025 Microscopic observation Gram stain Nom (Unsp spec) [facility] Routine wound cultureOrdered By: Rishi Vasquez on 02-16-2025 Microbial culture, routine Meth. resistant Staph. aureus Abnormal [facility] Wound Culture Meth. resistant Stap h. aureus Abnormal [facility] Wound Culture Negative Abnormal [facility] Wound Cultureon 02-06-2025 WC Normal [facility] Comment on above: Performed By: #### M 100.3000, M1.1999 ####[facility] [address] [place], [address] Gram Stainon 02-04-2025 GS Positive Normal [facility] Comment on above: Performed By: #### M 100.3000, M1.1999 ####[facility] [address] [place], [address] Gram stainOrdered By: Rishi Vasquez on 02-03-2025 Microscopic observation Gram stain Nom (Unsp spec) [facility] Routine wound cultureOrdered By: Rishi Vasquez on 02-03-2025 Microbial culture, routine Meth. resistant Staph. aureus Abnormal [facility] Wound Culture Meth. resistant Stap h. aureus Abnormal [facility] Lower Ext Art Exam w/o Exerc kris 01-06-2025 Lower Ext Art Exam w/o Exercis Normal [facility] Culture, Anaerobic Any Sourc adonis 01-03-2025 CUAN ONLY AN AEROBIC SWAB WAS RECEIVED FOR CULTURE. GROWTH OF ANAEROBES MAY BE INHIBITED. No anaerobic bacteria isolated. Normal [facility] Comment on above: Performed By: #### M 100.4001, M100.1999, M100.3000 ####[facility] [address] [place], [address] Wound Cultureon 01-02-2025 WC Normal [facility] Comment on above: Performed By: #### M 100.4001, M100.1999, M100.3000 ####[facility] [address] [place], [address] Anaerobic cultureOrdered By: Patel Irene on 12-31-2024 Bacteria identified Anaer cx Nom (Unsp spec) No anaerobic bacteria isolated. [facility] Bacteria identified Anaer cx Nom (Unsp spec)Ordered By: Patel Irene on 12-31-2024 Anaerobic Culture No anaerobic bacteri a isolated. [facility] Gram Stainon 12-31-2024 GS ONLY AN AEROBIC SWAB WAS RECEIVED FOR CULTURE. GROWTH OF ANAEROBES MAY BE INHIBITED. Gram Stain 2+ Gram positive cocci 2+ Red Blood Cells Normal [facility] Comment on above: Performed By: #### M 100.4001, M100.1999, M100.3000 ####[facility] [address] [place], [address] Gram stainOrdered By: Keri Irene on 12-31-2024 Microscopic observation Gram stain Nom (Unsp spec) [facility] Routine wound cultureOrdered By: Patel Irene on 12-31-2024 Microbial culture, routine Meth. resistant Staph. aureus Abnormal [facility] Wound Culture Meth. resistant Stap h. aureus Abnormal [facility] L3410.9998on 12-24-2024 [facility] Misc. COMMENT Normal . [facility] Comment on above: Order Comment: [id number] 1WOUND CULTURE Result Comment: Test Ordered: [id number] Anaerobic/Aerobic/Gram StainAnaerobic Culture Note: CB Final report Reference Range: .Result 1 Comment CB Reference Range: .No anaerobic growth in 72 hours.Aerobic Culture Note: [A ] Final report Reference Range: .Result 1 Comment [A ] Reference Range: .Methicillin - resistant Staphylococcus aureusBased on resistance to oxacillin this isolate would beresistant to all currently available beta-lactamantimicrobial agents, with the exception of the newercephalosporins with anti-MRSA activity, such as CeftarolineLight growthResult 2 Note: [A ] CB Enterococcus faecalis Reference Range: .For Enterococcus species, aminoglycosides (except for high-level resistance screening), cephalosporins, clindamycin,and trimethoprim-sulfamethoxazole are not effectiveclinically. (CLSI, C937-X16, 2016)Light growthEnterococci susceptible to penicillin are predictablysusceptible to ampicillin, amoxicillin, ampicillin-sulbactam, amoxicillin-clavulanate, and piperacillin-tazobactam for tvc-xceo-xdsxliqvg producing enterococci.(CLSI 2018)Antimicrobial Susceptibility Comment CB Reference [...] .No white blood cells seen.Result 2 Note: No organisms seen Reference Range: .Performed at: - [facility] [id number] Director: Chele Santoyo PhD, Phone: [phone] Performed By: #### L 3410.9998 ####[facility] [address] [place], [address] CNOVon 12-05-2024 CNOV Office Visit (FAMPWS ) -------- GELY NEWMAN ([id number]) 1950 F Date Time Provider Department 12/05/24 [...] Seeing Dr. Franco for pain mgmt at [facility] and she is now taking Lyrica [...] mellitus (HCC) Coronary artery disease Dr. Ch [employer], 90% blockage- unable to do stenting Diabetes mellitus type 2 in obese Diabetic feet (HCC) Gangrene (HCC) 2012 RIGHT FOOT Hypertension Mild non proliferative diabetic retinopathy (HCC) 06/11/2013 Both eyes, Dr. Ortiz [facility]-03/25/2020 left mild, right moderate Multiple thyroid nodules last US 01/2015 Peripheral artery disease (HCC) due to Diabetes mellitus, Dr. Kwaku Moscoso Rotator cuff syndrome of left shoulder Dr. Deluna [facility] PAST SURGICAL HISTORY Procedure Laterality Date [...] VSL 04-08-13 ROTATOR CUFF REPAIR 03/11/14 Dr. Delnua [facility] SLCTV CATHJ EA 1ST ORD ABDL PEL/LXTR ART BRNCH 06-07-16 APLL Social History Tobacco Use Smoking status: Former Current packs/day: 0.00 Average packs/day: 0.5 packs/day for 45.0 years (22.5 ttl pk-yrs) Types: Cigarettes Start date: 12/20/1967 Quit date: 12/20/2012 Years since quittin.9 Smokeless tobacco: Never Substance Use Topics Alcohol use: No Drug use: No FAMILY H (more content not included)... Normal [facility]3 [facility] 25-hydroxyvitamin D3 [Mass/Vol] 62.6 ng/mL Normal 31.0-80.0 [facility] Comment on above: Order Comment: Speci men Type: BLOOD SPECIMEN Ordering Facility: [facility] Address: [address] [place] [address] Result Comment: Clas sification of 25 [place] Vitamin D status: Deficiency/Insufficiency: < or = 30 ng/ml. Sufficiency/Optimal Levels: 31-80 ng/mL Toxicity: > 100 ng/mL. Test performed by chemiluminescent immunoassay. Performed By: #### 2 132-9 #### [facility] CLIA [id number] [address] [place], [place] [address] [address] [place] CBC panel Auto (Bld)on 12-01 Erythrocyte distribution width (RBC) [Ratio] 12.5 % Normal 11.5-15.0 [facility] Comment on above: Order Comment: Speci men Type: BLOOD SPECIMENOrdering Facility: [facility] Address: [address] [place], [place] [address] Performed By: #### 5 8410-2 ####[facility] LABCLIA [id number] [place] [address] [place] Hematocrit (Bld) [Volume fraction] 37.8 % Normal 36.0-46.0 [facility] Comment on above: Order Comment: Speci men Type: BLOOD SPECIMENOrdering Facility: [facility] Address: [address] [place] [address] Performed By: #### 5 8410-2 ####[facility] LABIA [id number] [place] [address] [place] Hemoglobin (Bld) [Mass/Vol] 12.1 g/dL Normal 11.5-15.5 [facility] Comment on above: Order Comment: Speci men Type: BLOOD SPECIMENOrdering Facility: [facility] Address: [address] [place] [address] Performed By: #### 5 8410-2 ####[facility] LABIA [id number] [place] [address] [place] MCH (RBC) [Entitic mass] 31.2 pg Normal 26.0-34.0 [facility] Comment on above: Order Comment: Speci men Type: BLOOD SPECIMENOrdering Facility: [facility] Address: [address] [place] [address] Performed By: #### 5 8410-2 ####[facility] LABIA [id number] [place] [address] [place] MCHC (RBC) [Mass/Vol] 32.0 g/dL Normal 30.5-36.0 [facility] Comment on above: Order Comment: Speci men Type: BLOOD SPECIMENOrdering Facility: [facility] Address: [address] [place] [address] Performed By: #### 5 8410-2 ####[facility] LABCLIA [id number] [place] [address] [place] MCV (RBC) [Entitic vol] 97.4 fL Normal 80.0-100.0 [facility] Comment on above: Order Comment: Speci men Type: BLOOD SPECIMENOrdering Facility: [facility] Address: [address] [place] [address] Performed By: #### 5 8410-2 ####[facility] LABIA [id number] [place] [address] [place] Nucleated RBC (Bld) [#/Vol] 10*3/uL Normal <0.01 [facility] Comment on above: Order Comment: Speci men Type: BLOOD SPECIMENOrdering Facility: [facility] Address: [address] [place] [address] Performed By: #### 5 8410-2 ####[facility] LABIA [id number] [place] [address] [place] Platelet mean volume (Bld) [Entitic vol] 12.3 fL Normal 9.0-12.7 [facility] Comment on above: Order Comment: Speci men Type: BLOOD SPECIMENOrdering Facility: [facility] Address: [address] [place] [address] Performed By: #### 5 8410-2 ####[facility] LABIA [id number] [place] [address] [place] Platelets (Bld) [#/Vol] 160 10*3/uL Normal 150-400 [facility] Comment on above: Order Comment: Speci men Type: BLOOD SPECIMENOrdering Facility: [facility] Address: [address] [place] [address] Performed By: #### 5 8410-2 ####[facility] LABCLIA [id number] [place] [address] [place] RBC (Bld) [#/Vol] 3.88 10*6/uL Low 3.90-5.20 [facility] Comment on above: Order Comment: Speci men Type: BLOOD SPECIMENOrdering Facility: [facility] Address: [address] [place] [address] Performed By: #### 5 8410-2 ####[facility] LABCLIA [id number] [address] [address] [place] WBC (Bld) [#/Vol] 5.99 10*3/uL Normal 3.70-11.00 [facility] Comment on above: Order Comment: Speci men Type: BLOOD SPECIMENOrdering Facility: [facility] Address: [address] [place] [address] Performed By: #### 5 8410-2 ####[facility] LABCLIA [id number] [place] [id number] [place] Comprehensive metabolic 2000 panelon 12-01-2024 Albumin [Mass/Vol] 4.0 g/dL Normal 3.9-4.9 [facility] Comment on above: Order Comment: Speci men Type: BLOOD SPECIMENOrdering Facility: [facility] Address: [address] [place] [address] Performed By: #### 2 4323-8, 3024-7, 15592-5, 3016-3 ####[facility] LABIA [id number] [place] [id number] [place] ALP [Catalytic activity/Vol] 67 U/L Normal 34-123 [facility] Comment on above: Order Comment: Speci men Type: BLOOD SPECIMENOrdering Facility: [facility] Address: [address] [place] [address] Performed By: #### 2 4323-8, 3024-7, 31182-5, 3016-3 ####[facility] LABCLIA [id number] [place] [id number] [place] ALT [Catalytic activity/Vol] 19 U/L Normal 7-38 [facility] Comment on above: Order Comment: Speci men Type: BLOOD SPECIMENOrdering Facility: [facility] Address: [address] [place], [place] [address] Performed By: #### 2 4323-8, 3024-7, 62388-3, 3016-3 ####[facility] LABCLIA [id number] [place] [id number] [place] Anion gap [Moles/Vol] 16 mmol/L High 8-15 [facility] Comment on above: Order Comment: Speci men Type: BLOOD SPECIMENOrdering Facility: [facility] Address: [address] [place] [address] Performed By: #### 2 4323-8, 3024-7, 71873-3, 3016-3 ####[facility] LABCLIA [id number] [place] [address] [place] AST [Catalytic activity/Vol] 31 U/L Normal 13-35 [facility] Comment on above: Order Comment: Speci men Type: BLOOD SPECIMENOrdering Facility: [facility] Address: [address] [place] [address] Performed By: #### 2 4323-8, 3024-7, 73224-4, 3016-3 ####[facility] LABCLIA [id number] [place] [address] [place] Bilirubin [Mass/Vol] 0.4 mg/dL Normal 0.2-1.3 [facility] Comment on above: Order Comment: Speci men Type: BLOOD SPECIMENOrdering Facility: [facility] Address: [address] [place], [place] [address] Performed By: #### 2 4323-8, 3024-7, 97704-3, 3016-3 ####[facility] LABCLIA [id number] [place] [id number] [place] Calcium [Mass/Vol] 10.0 mg/dL Normal 8.5-10.2 [facility] Comment on above: Order Comment: Speci men Type: BLOOD SPECIMENOrdering Facility: [facility] Address: [address] [place], [place] [address] Performed By: #### 2 4323-8, 3024-7, 39641-0, 3016-3 ####[facility] LABCLIA [id number] [place] [address] [place] Chloride [Moles/Vol] 108 mmol/L High 98-107 [facility] Comment on above: Order Comment: Speci men Type: BLOOD SPECIMENOrdering Facility: [facility] Address: [address] [place] [address] Performed By: #### 2 4323-8, 3024-7, 34811-2, 3016-3 ####[facility] LABCLIA [id number] [place] [address] [place] CO2 [Moles/Vol] 20 mmol/L Low 22-30 [facility] Comment on above: Order Comment: Speci men Type: BLOOD SPECIMENOrdering Facility: [facility] Address: [address] [place] [address] Performed By: #### 2 4323-8, 3024-7, 86909-1, 3016-3 ####[facility] LABCLIA [id number] [place] [address] [place] Creatinine [Mass/Vol] 1.11 mg/dL High 0.58-0.96 [facility] Comment on above: Order Comment: Speci men Type: BLOOD SPECIMENOrdering Facility: [facility] Address: [address] [place] [address] Performed By: #### 2 4323-8, 3024-7, 67777-1, 3016-3 ####[facility] LABCLIA [id number] [place] [address] [place] Creatinine and Glomerular filtration rate.predicted panel (S/P/Bld) 53 mL/min/1.73m??? Low >=60 [facility] Comment on above: Order Comment: Johana jarvis Type: BLOOD SPECIMENOrdering Facility: [facility] Address: [address] [place] [address] Result Comment: Elena mated Glomerular Filtration Rate [...] GFR. Performed By: #### 2 4323-8, 3024-7, 27215-5, 3016-3 ####[facility] LABIA [id number] [place] [address] [place] Glucose [Mass/Vol] 79 mg/dL Normal 74-99 [facility] Comment on above: Order Comment: Johana jarvis Type: BLOOD SPECIMENOrdering Facility: [facility] Address: [address] [place] [address] Result Comment: The [place] [employer] (ADA) provides guidance for cutoff [...] Standards of Medical Care in Diabetes 2016, [place] [employer]. Diabetes Care. 2016.39(Suppl 1). Performed By: #### 2 4323-8, 3024-7, 48427-0, 3016-3 ####[facility] LABCLIA [id number] [place] [id number] [place] Potassium [Moles/Vol] 4.3 mmol/L Normal 3.7-5.1 [facility] Comment on above: Order Comment: Speci men Type: BLOOD SPECIMENOrdering Facility: [facility] Address: [address] [place], [place] [address] Performed By: #### 2 4323-8, 3024-7, 61027-5, 6-3 ####[facility] LABIA [id number] [address] [address] [place] Protein [Mass/Vol] 6.6 g/dL Normal 6.3-8.0 [facility] Comment on above: Order Comment: Speci men Type: BLOOD SPECIMENOrdering Facility: [facility] Address: [address] [place] [address] Performed By: #### 2 4323-8, 3024-7, 89899-2, 3015-3 ####[facility] [id number] [place] [id number] [place] Sodium [Moles/Vol] 144 mmol/L Normal 136-144 [facility] Comment on above: Order Comment: Speci men Type: BLOOD SPECIMENOrdering Facility: [facility] Address: [address] [place] [address] Performed By: #### 2 4323-8, 3024-7, 22102-4, 3015-3 ####[facility] LABIA [id number] [place] [id number] [place] Urea nitrogen [Mass/Vol] 51 mg/dL High 7-21 [facility] Comment on above: Order Comment: Speci men Type: BLOOD SPECIMENOrdering Facility: [facility] Address: [address] [place], [place] [address] Performed By: #### 2 4323-8, 3024-7, 39144-6, 3015-3 ####[facility] LABIA [id number] [address] [address] [place] HbA1c (Bld)on 12-01-2024 Average glucose Estimated from glycated hemoglobin (Bld) [Mass/Vol] 126 mg/dL Normal [facility] Comment on above: Order Comment: Johana jarvis Type: BLOOD SPECIMEN Ordering Facility: [facility] Address: [address] [place] [address] Result Comment: eAG: (Estimated average glucose) is a calculated value from HgbA1c and is printing supplies sales representative of the average blood glucose level in the last 2-3 month period. Performed By: #### 5 5454-3 #### [facility] CLIA [id number] [address] [place] [address] [place] HbA1c (Bld) [Mass fraction] 6.0 % High 4.3-5.6 [facility] Comment on above: Order Comment: Johana jarvis Type: BLOOD SPECIMEN Ordering Facility: [facility] Address: [address] [place] [address] Result Comment: Amer ican Diabetes Association guidelines indicate that patients with HgbA1c in the range 5.7-6.4% are at increased risk for development of diabetes, and intervention by lifestyle modification may be beneficial. HgbA1c greater or equal to 6.5% is considered diagnostic of diabetes. Performed By: #### 5 5454-3 #### [facility] CLIA [id number] [address] [place] [address] [place] Lipid 1996 panelon 5 Cholesterol [Mass/Vol] 138 mg/dL Normal <200 [facility] Comment on above: Order Comment: Johana jarvis Type: BLOOD SPECIMENOrdering Facility: [facility] Address: [address] [place] [address] Result Comment: <200 mg/dL, Desirable 200-239 mg/dL, Borderline high >239 mg/dL, High Performed By: #### 2 4323-8, 3024-7, 06134-7, 3016-3 ####[facility]IA [id number] [address] [place] Cholesterol in HDL [Mass/Vol] 44 mg/dL Normal >39 [facility] Comment on above: Order Comment: Johana jarvis Type: BLOOD SPECIMENOrdering Facility: [facility] Address: [address] [place] [address] Result Comment: 40-5 9 mg/dL, Acceptable >59 mg/dL, High: Negative risk factor for coronary heart disease <40 mg/dL, Low: Positive risk factor for coronary heart disease Performed By: #### 2 4323-8, 3024-7, 05838-7, 3016-3 ####[facility]CLIA [id number] [place] [address] [place] Cholesterol in LDL [Mass/Vol] 64 mg/dL Normal <100 [facility] Comment on above: Order Comment: Speci men Type: BLOOD SPECIMENOrdering Facility: [facility] Address: [address] [place] [address] Result Comment: <100 mg/dL, Optimal 100-129 mg/dL, Near optimal/above optimal 130-159 mg/dL, Borderline high 160-189 mg/dL, High >189 mg/dL, Very high Secondary prevention optimal LDL Cholesterol levels are recommended to be < 70 mg/dL Performed By: #### 2 4323-8, 3024-7, 27540-0, 3015-3 ####[facility]IA [id number] [place] [address] [place] Cholesterol in LDL/Cholesterol in HDL [Mass ratio] 1.45 {ratio} Normal <2.54 [facility] Comment on above: Order Comment: Speci men Type: BLOOD SPECIMENOrdering Facility: [facility] Address: [address] [place] [address] Result Comment: Refe rence: 1. National Cholesterol Education Program ATP III Guideline At-A-Glance Quick Desk Reference: National Heart, Lung, and Blood [place]. National Institutes of Health. 2001: NIH Publication No. 01-3305. 2. An International Atherosclerosis Society position paper: global recommendations for the management of dyslipidemia: executive summary, Atherosclerosis. 2014: 232(2):410-413. Performed By: #### 2 4323-8, 3024-7, 52633-5, 6-3 ####[facility]IA [id number] [address] [address] [place] Cholesterol in VLDL [Mass/Vol] 30 mg/dL High <30 [facility] Comment on above: Order Comment: Speci men Type: BLOOD SPECIMENOrdering Facility: [facility] Address: [address] [place], [place] [address] Performed By: #### 2 4323-8, 3024-7, 69460-5, 3016-3 ####[facility]IA [id number] [address] [address] [place] Cholesterol non HDL [Mass/Vol] 94 mg/dL Normal <130 [facility] Comment on above: Order Comment: Speci men Type: BLOOD SPECIMENOrdering Facility: [facility] Address: [address] [place] [address] Result Comment: <130 mg/dL, Optimal 130-159 mg/dL, Near optimal/above optimal 160-189 mg/dL, Borderline high 190-219 mg/dL, High >219 mg/dL, Very high Secondary prevention optimal non HDL Cholesterol levels are recommended to be <100 mg/dL Performed By: #### 2 4323-8, 3024-7, 32701-5, 6-3 ####[facility] LABIA [id number] [address] [address] [place] Cholesterol.total/Chol esterol in HDL [Mass ratio] 3.14 {ratio} Normal <5.10 [facility] Comment on above: Order Comment: Speci men Type: BLOOD SPECIMENOrdering Facility: [facility] Address: [address] [place] [address] Performed By: #### 2 4323-8, 3024-7, 98648-5, 6-3 ####[facility]IA [id number] [address] [address] [place] FASTING TIME 14 hrs Normal [facility] Comment on above: Order Comment: Speci men Type: BLOOD SPECIMENOrdering Facility: [facility] Address: [address] [place] [address] Performed By: #### 2 4323-8, 3024-7, 34183-4, 3016-3 ####[facility] LABCLIA [id number] [place] [address] [place] Triglyceride [Mass/Vol] 151 mg/dL High <150 [facility] Comment on above: Order Comment: Speci men Type: BLOOD SPECIMENOrdering Facility: [facility] Address: [address] [place] [address] Result Comment: <150 mg/dL, Normal 150-199 mg/dL, Borderline high 200-499 mg/dL, High >499 mg/dL, Very high Performed By: #### 2 4323-8, 4-7, 23556-8, 6-3 ####[facility] LABCLIA [id number] [place] [address] [place] T4 Free SerPl-mCncon 025 Free T4 [Mass/Vol] 2.0 ng/dL High 0.9-1.7 [facility] Comment on above: Order Comment: Speci men Type: BLOOD SPECIMENOrdering Facility: [facility] Address: [address] [place] [address] Performed By: #### 2 4323-8, 3024-7, 54102-1, 6-3 ####[facility] LABCLIA [id number] [place] [address] [place] TSH SerPl-aCncon 12-01-2024 TSH Qn 0.005 m[IU]/L Low 0.270-4.200 [facility] Comment on above: Order Comment: Speci men Type: BLOOD SPECIMENOrdering Facility: [facility] Address: [address] [place] [address] Performed By: #### 2 4323-8, 3024-7, 50647-1, 3016-3 ####[facility] LABCLIA [id number] [address] [place] [address] [place] [facility] 01-13-2 025 Cobalamin (Vitamin B12) [Mass/Vol] 1268 pg/mL High 232-1245 [facility] Comment on above: Order Comment: Speci men Type: BLOOD SPECIMEN Ordering Facility: [facility] Address: [address] [place] [address] Performed By: #### 2 132-9 #### [facility] CLIA [id number] [address] [place] [address] [place] [address] [place] CNPNon 09-10-2024 CNPN Telephone (FAMPWS) -------- GELY NEWMAN ([id number]) 1950 F Date Time Provider Department 09/10/24 RISHI VASQUEZ [facility] During your visit today, we recorded [...] out to provider. Requests call back at [phone] with provider response. GORGE Bo Jordan L, [...] Fully Assessed Reason for Visit: Patient Question [8767] Prescriptions as of 09/15/2024 - gabapentin (NEURONTIN) [...] 1 tablet by mouth once daily. - Myhjzqnt-Odue-Uev-Folic Acid 18-0.4 mg tab Take 1 tablet [...] [L72.3, L08.9] 02/26/2019 Coronary artery disease involving [place] heart *05/28/2019 Abnormal urine odor [R82.90] 05/28/2019 [...] Encounter Status:Closed by SILVESTRE MARTINEZ on 09/15/24 [facility] 08-18-2024 [facility] Telephone (FAMPWS) -------- GELY NEWMAN ([id number]) 1950 F Date Time Provider Department 08/18/24 [facility] During your visit today, we recorded the following information about you: Silvestre Martinez MA 08/18/2024 8:48 AM Signed Pt wrote into the office via [employer] on 08/16/24 with questions regarding medications. Please [...] Fully Assessed Reason for Visit: Patient Question [9146] Cmt: Fish oil - [place] 3 Prescriptions as of 08/19/2024 - gabapentin [...] 1 tablet by mouth once daily. - Txjgrjvr-Ufzs-Wzg-Folic Acid 18-0.4 mg tab Take 1 tablet [...] [L72.3, L08.9] 02/26/2019 Coronary artery disease involving [place] heart *05/28/2019 Abnormal urine odor [R82.90] 05/28/2019 [...] Encounter Status:Closed by LEATHA LONG on 08/19/[address] [facility] 08-08-2024 CNPN Telephone (FAMPWS) -------- GELY NEWMAN ([id number]) 1950 F Date Time Provider Department 08/08/24 RISHI VASQUEZPWS During your visit today, we [...] ISSUE. WILL AWAIT YOUR REPLY Rishi Hernández, 08/12/2024 4:54 PM Signed Patient has some [...] 1 tablet by mouth once daily. - Xyxrnbum-Fhep-Jod-Folic Acid 18-0.4 mg tab Take 1 tablet [...] [L72.3, L08.9] 02/26/2019 Coronary artery disease involving [place] heart *05/28/2019 Abnormal urine odor [R82.90] 05/28/2019 Stage 3 chronic kidney disease (HCC) [N18.30] 12/03/2019 Fatigue [R53.83] more content not included)... Normal [facility] Pelvis (Routine)on Pelvis (Routine) Normal [facility] Shoulder min 2 Viewson 06-19 Shoulder min 2 Views Normal [facility] CNPNon 06-13-2024 CNPN Telephone (FAMPWS) -------- GELY NEWMAN ([id number]) 1950 F Date Time Provider Department 06/13/24 RISHI VASQUEZ During your visit today, we recorded the following information about you: Annmarie López LPN 06/13/2024 11:19 AM Signed Needs referral faxed to [facility] for Pain Management. This has been [...] 1 tablet by mouth once daily. - Wnmgclws-Telf-Snb-Folic Acid 18-0.4 mg tab Take 1 tablet [...] [L72.3, L08.9] 02/26/2019 Coronary artery disease involving [place] heart *05/28/2019 Abnormal urine odor [R82.90] 05/28/2019 [...] by ANNMARIE LÓPEZ LPN on 06/13/24 Normal [facility] CNCOon 06-04-2024 CNCO HNO ID: [id number] Author: COORDINATOR, MAMMOGRAPHY, ? Service: ? Author Type: Physician Type: Letter Filed: 06/04/2024 14:01 Note Text: June 04, 2024 PID: [id number] Gely Newman [address] [place] [address] Dear Ms. Newman, We are pleased to [...] report will be kept on file at [facility] as part of your permanent medical record and are available for your continuing care. Thank you for allowing us to help in meeting your health care needs. Sincerely, Dr. Monteiro Interpreting Radiologist [facility] (Normal over 40) Normal [facility] CNOVon 06-04-2024 CNOV Office Visit (FAMPWS ) -------- GELY NEWMAN ([id number]) 1950 F Date Time Provider Department 06/04/24 9:40 AM RISHI VASQUEZPJOHNY During your visit today, we [...] mellitus (HCC) Coronary artery disease Dr. Ch [employer], 90% blockage- unable to do stenting Diabetes mellitus type 2 in obese Diabetic feet (HCC) Gangrene (HCC) 2012 RIGHT FOOT Hypertension Mild non proliferative diabetic retinopathy (HCC) 06/11/2013 Both eyes, Dr. Ortiz [facility]-03/25/2020 left mild, right moderate Multiple thyroid nodules last US 01/2015 Peripheral artery disease (HCC) due to Diabetes mellitus, Dr. Kwaku Moscoso Rotator cuff syndrome of left shoulder Dr. Deluna [facility] PAST SURGICAL HISTORY Procedure Laterality Date [...] 04-08-13 ROTATOR CUFF REPAIR 03/11/14 Dr. Deluna [facility] SLCTV CATHJ EA 1ST ORD ABDL [...] Allergen React (more content not included)... Normal [facility] 06-04-2024 [facility] Telephone (FAMPWS) -------- GELY NEWMAN ([id number]) 1950 F Date Time Provider Department 06/04/24 RISHI VASQUEZ [facility] During your visit today, we recorded [...] 1 tablet by mouth once daily. - Vfhudtph-Pnph-Mhi-Folic Acid 18-0.4 mg tab Take 1 tablet [...] [L72.3, L08.9] 02/26/2019 Coronary artery disease involving [place] heart *05/28/2019 Abnormal urine odor [R82.90] 05/28/2019 [...] Status:Closed by KEISHA CORONADO on 06/04/24 Normal [facility] SCREENING W GLENNYOon 06-03 ALEJANDRO SCREENING W BEN * * *Final Report* * * DATE OF EXAM: Jun 03 2024 9:42AM WRW [id number] - ALEJANDRO SCREENING W BEN / PROCEDURE REASON: Encounter for screening mammogram for malignant neoplasm of breast * * * * Physician Interpretation * * * * RESULT: #[id number] - ALEJANDRO SCREENING W BEN BILATERAL DIGITAL [...] mammogram, 07/10/2023 mammogram, and 06/05/2022 mammogram - [facility]. There are scattered areas of fibroglandular density. No significant masses, calcifications, or other findings are seen in either breast. There has been no significant interval change. IMPRESSION: NEGATIVE There is no mammographic evidence of malignancy. A 1 year screening mammogram is recommended. Liestte newman/gilson:06/04/2024 14:01:13 Director Of Occupational Therapy(s): Elizabeth Sandoval [facility] letter sent: Normal over 40 [...] Health, Family Medicine, and Medical/Surgical Oncology, the [facility] has carefully reviewed the data and reached [...] their providers when to stop screening mammograms. Roentgenology Teacher: Gilson Transcribe Date/Time: Jun 03 2024 9:23A Dictated by: LISETTE MONTEIRO MD This examination was interpreted and the report reviewed and electronically signed by: LISETTE MONTEIRO MD on Jun 04 2024 2:01PM EST [id number] Normal [facility] 25([place])D3 [facility]-ncon 2023 25-hydroxyvitamin D3 [Mass/Vol] 72.8 ng/mL Normal 31.0-80.0 [facility] Comment on above: Order Comment: Speclisa jarvis Type: BLOOD SPECIMEN Ordering Facility: [facility] Address: [address] [place] [address] Result Comment: Clas sification of 25 [place] Vitamin D status: Deficiency/Insufficiency: < or = 30 ng/ml. Sufficiency/Optimal Levels: 31-80 ng/mL Toxicity: > 100 ng/mL. Test performed by chemiluminescent immunoassay. Performed By: #### 2 132-9 #### [facility] CLIA [id number] [address] [place] [address] [place] CBC W Auto Differential pane l (Bld)on 05-30-2024 Basophils (Bld) [#/Vol] 0.06 10*3/uL Normal <0.11 [facility] Comment on above: Order Comment: Speci men Type: BLOOD SPECIMEN Ordering Facility: [facility] Address: [address] [place] [address] Performed By: #### 2 132-9 #### [facility] CLIA [id number] [address] [place] [address] [place] Basophils/100 WBC (Bld) 0.8 % Normal [facility] Comment on above: Order Comment: Elizabethi matheus Type: BLOOD SPECIMEN Ordering Facility: [facility] Address: [address] [place] [address] Performed By: #### 2 132-9 #### [facility] CLIA [id number] [address] [place] [address] [place] Differential cell count method Nom (Bld) Auto Normal [facility] Comment on above: Order Comment: Speci men Type: BLOOD SPECIMEN Ordering Facility: [facility] Address: [address] [place] [address] Performed By: #### 2 132-9 #### [facility] CLIA [id number] [address] [place] [address] [place] Eosinophils (Bld) [#/Vol] 0.26 10*3/uL Normal <0.46 [facility] Comment on above: Order Comment: Speci men Type: BLOOD SPECIMEN Ordering Facility: [facility] Address: [address] [place] [address] Performed By: #### 2 132-9 #### [facility] CLIA [id number] [address] [place] [address] [place] Eosinophils/100 WBC (Bld) 3.4 % Normal [facility] Comment on above: Order Comment: Speci men Type: BLOOD SPECIMEN Ordering Facility: [facility] Address: [address] [place] [address] Performed By: #### 2 132-9 #### [facility] CLIA [id number] [address] [place] [address] [place] Erythrocyte distribution width (RBC) [Ratio] 12.1 % Normal 11.5-15.0 [facility] Comment on above: Order Comment: Speci men Type: BLOOD SPECIMEN Ordering Facility: [facility] Address: [address] [place] [address] Performed By: #### 2 132-9 #### [facility] CLIA [id number] [address] [place] [address] [place] Hematocrit (Bld) [Volume fraction] 38.4 % Normal 36.0-46.0 [facility] Comment on above: Order Comment: Speci men Type: BLOOD SPECIMEN Ordering Facility: [facility] Address: [address] [place] [address] Performed By: #### 2 132-9 #### [facility] CLIA [id number] [address] [place] [address] [place] Hemoglobin (Bld) [Mass/Vol] 12.3 g/dL Normal 11.5-15.5 [facility] Comment on above: Order Comment: Speci men Type: BLOOD SPECIMEN Ordering Facility: [facility] Address: [address] [place] [address] Performed By: #### 2 132-9 #### [facility] CLIA [id number] [address] [place] [address] [place] Immature granulocytes (Bld) [#/Vol] 10*3/uL Normal <0.10 [facility] Comment on above: Order Comment: Speci men Type: BLOOD SPECIMEN Ordering Facility: [facility] Address: [address] [place] [address] Performed By: #### 2 132-9 #### [facility] CLIA [id number] [address] [place] [address] [place] Immature granulocytes/100 WBC (Bld) 0.1 % Normal [facility] Comment on above: Order Comment: Speci men Type: BLOOD SPECIMEN Ordering Facility: [facility] Address: [address] [place] [address] Performed By: #### 2 132-9 #### [facility] CLIA [id number] [address] [place] [address] [place] Lymphocytes (Bld) [#/Vol] 1.71 10*3/uL Normal 1.00-4.00 [facility] Comment on above: Order Comment: Speci men Type: BLOOD SPECIMEN Ordering Facility: [facility] Address: [address] [place] [address] Performed By: #### 2 132-9 #### [facility] CLIA [id number] [address] [place] [address] [place] Lymphocytes/100 WBC (Bld) 22.6 % Normal [facility] Comment on above: Order Comment: Speci men Type: BLOOD SPECIMEN Ordering Facility: [facility] Address: [address] [place] [address] Performed By: #### 2 132-9 #### [facility] CLIA [id number] [address] [place] [address] [place] MCH (RBC) [Entitic mass] 31.1 pg Normal 26.0-34.0 [facility] Comment on above: Order Comment: Speci men Type: BLOOD SPECIMEN Ordering Facility: [facility] Address: [address] [place] [address] Performed By: #### 2 132-9 #### [facility] CLIA [id number] [address] [place] [address] [place] MCHC (RBC) [Mass/Vol] 32.0 g/dL Normal 30.5-36.0 [facility] Comment on above: Order Comment: Speci men Type: BLOOD SPECIMEN Ordering Facility: [facility] Address: [address] [place] [address] Performed By: #### 2 132-9 #### [facility] CLIA [id number] [address] [place] [address] [place] MCV (RBC) [Entitic vol] 97.0 fL Normal 80.0-100.0 [facility] Comment on above: Order Comment: Speci men Type: BLOOD SPECIMEN Ordering Facility: [facility] Address: [address] [place] [address] Performed By: #### 2 132-9 #### [facility] CLIA [id number] [address] [place] [address] [place] Monocytes (Bld) [#/Vol] 0.68 10*3/uL Normal <0.87 [facility] Comment on above: Order Comment: Speci men Type: BLOOD SPECIMEN Ordering Facility: [facility] Address: [address] [place] [address] Performed By: #### 2 132-9 #### [facility] CLIA [id number] [address] [place] [address] [place] Monocytes/100 WBC (Bld) 9.0 % Normal [facility] Comment on above: Order Comment: Speci men Type: BLOOD SPECIMEN Ordering Facility: [facility] Address: [address] [place] [address] Performed By: #### 2 132-9 #### [facility] CLIA [id number] [address] [place] [address] [place] Neutrophils (Bld) [#/Vol] 4.86 10*3/uL Normal 1.45-7.50 [facility] Comment on above: Order Comment: Speci men Type: BLOOD SPECIMEN Ordering Facility: [facility] Address: [address] [place] [address] Performed By: #### 2 132-9 #### [facility] CLIA [id number] [address] [place] [address] [place] Neutrophils/100 WBC (Bld) 64.1 % Normal [facility] Comment on above: Order Comment: Speci men Type: BLOOD SPECIMEN Ordering Facility: [facility] Address: [address] [place] [address] Performed By: #### 2 132-9 #### [facility] CLIA [id number] [address] [place] [address] [place] Nucleated RBC (Bld) [#/Vol] 10*3/uL Normal <0.01 [facility] Comment on above: Order Comment: Speci men Type: BLOOD SPECIMEN Ordering Facility: [facility] Address: [address] [place] [address] Performed By: #### 2 132-9 #### [facility] CLIA [id number] [address] [place] [address] [place] Nucleated RBC/100 WBC (Bld) [Ratio] 0.0 /100 WBC Normal [facility] Comment on above: Order Comment: Speci men Type: BLOOD SPECIMEN Ordering Facility: [facility] Address: [address] [place] [address] Performed By: #### 2 132-9 #### [facility] CLIA [id number] [address] [place] [address] [place] Platelet mean volume (Bld) [Entitic vol] 11.3 fL Normal 9.0-12.7 [facility] Comment on above: Order Comment: Speci men Type: BLOOD SPECIMEN Ordering Facility: [facility] Address: [address] [place] [address] Performed By: #### 2 132-9 #### [facility] CLIA [id number] [address] [place] [address] [place] Platelets (Bld) [#/Vol] 191 10*3/uL Normal 150-400 [facility] Comment on above: Order Comment: Speci men Type: BLOOD SPECIMEN Ordering Facility: [facility] Address: [address] [place] [address] Performed By: #### 2 132-9 #### [facility] CLIA [id number] [address] [place] [address] [place] RBC (Bld) [#/Vol] 3.96 10*6/uL Normal 3.90-5.20 [facility] Comment on above: Order Comment: Speci men Type: BLOOD SPECIMEN Ordering Facility: [facility] Address: [address] [place] [address] Performed By: #### 2 132-9 #### [facility] CLIA [id number] [address] [place] [address] [place] WBC (Bld) [#/Vol] 7.58 10*3/uL Normal 3.70-11.00 [facility] Comment on above: Order Comment: Speci men Type: BLOOD SPECIMEN Ordering Facility: [facility] Address: [address] [place] [address] Performed By: #### 2 132-9 #### [facility] CLIA [id number] [address] [place] [address] [place] [place] Comprehensive metabolic 2000 panelon 05-30-2024 Albumin [Mass/Vol] 4.1 g/dL Normal 3.9-4.9 [facility] Comment on above: Order Comment: Speci men Type: BLOOD SPECIMEN Ordering Facility: [facility] Address: [address] [place] [address] Performed By: #### 2 132-9 #### [facility] CLIA [id number] [address] [place] [address] [place] ALP [Catalytic activity/Vol] 62 U/L Normal 34-123 [facility] Comment on above: Order Comment: Speci men Type: BLOOD SPECIMEN Ordering Facility: [facility] Address: [address] [place] [address] Performed By: #### 2 132-9 #### [facility] CLIA [id number] [address] [place] [address] [place] ALT [Catalytic activity/Vol] 13 U/L Normal 7-38 [facility] Comment on above: Order Comment: Speci men Type: BLOOD SPECIMEN Ordering Facility: [facility] Address: [address] [place] [address] Performed By: #### 2 132-9 #### [facility] CLIA [id number] [address] [place] [address] [place] Anion gap [Moles/Vol] 12 mmol/L Normal 8-15 [facility] Comment on above: Order Comment: Speci men Type: BLOOD SPECIMEN Ordering Facility: [facility] Address: [address] [place] [address] Performed By: #### 2 132-9 #### [facility] CLIA [id number] [address] [place] [address] [place] AST [Catalytic activity/Vol] 24 U/L Normal 13-35 [facility] Comment on above: Order Comment: Speci men Type: BLOOD SPECIMEN Ordering Facility: [facility] Address: [address] [place] [address] Performed By: #### 2 132-9 #### [facility] CLIA [id number] [address] [place] [address] [place] Bilirubin [Mass/Vol] 0.4 mg/dL Normal 0.2-1.3 [facility] Comment on above: Order Comment: Speci men Type: BLOOD SPECIMEN Ordering Facility: [facility] Address: [address] [place] [address] Performed By: #### 2 132-9 #### [facility] CLIA [id number] [address] [place] [address] [place] Calcium [Mass/Vol] 10.0 mg/dL Normal 8.5-10.2 [facility] Comment on above: Order Comment: Speci men Type: BLOOD SPECIMEN Ordering Facility: [facility] Address: [address] [place] [address] Performed By: #### 2 132-9 #### [facility] CLIA [id number] [address] [place] [address] [place] Chloride [Moles/Vol] 107 mmol/L Normal 98-107 [facility] Comment on above: Order Comment: Speci men Type: BLOOD SPECIMEN Ordering Facility: [facility] Address: [address] [place] [address] Performed By: #### 2 132-9 #### [facility] CLIA [id number] [address] [place], [place] [id number] [place] CO2 [Moles/Vol] 23 mmol/L Normal 22-30 [facility] Comment on above: Order Comment: Speci men Type: BLOOD SPECIMEN Ordering Facility: [facility] Address: [address] [place] [address] Performed By: #### 2 132-9 #### [facility] CLIA [id number] [address] [place] [address] [place] Creatinine [Mass/Vol] 1.20 mg/dL High 0.58-0.96 [facility] Comment on above: Order Comment: Speci men Type: BLOOD SPECIMEN Ordering Facility: [facility] Address: [address] [place] [address] Performed By: #### 2 132-9 #### [facility] CLIA [id number] [address] [place] [address] [place] Creatinine and Glomerular filtration rate.predicted panel (S/P/Bld) 48 mL/min/1.73m??? Low >=60 [facility] Comment on above: Order Comment: Speci men Type: BLOOD SPECIMEN Ordering Facility: [facility] Address: [address] [place] [address] Result Comment: Elena mated Glomerular Filtration Rate [...] GFR. Performed By: #### 2 132-9 #### [facility] CLIA [id number] [address] [place] [address] [place] Glucose [Mass/Vol] 113 mg/dL High 74-99 [facility] Comment on above: Order Comment: Speci men Type: BLOOD SPECIMEN Ordering Facility: [facility] Address: [address] [place] [address] Result Comment: The [place] Diabetes Association (ADA) provides guidance for cutoff [...] Standards of Medical Care in Diabetes 2016, [place] Diabetes Association. Diabetes Care. 2016.39(Suppl 1). Performed By: #### 2 132-9 #### [facility] CLIA [id number] [address] [place] [address] [place] Potassium [Moles/Vol] 4.7 mmol/L Normal 3.7-5.1 [facility] Comment on above: Order Comment: Speci men Type: BLOOD SPECIMEN Ordering Facility: [facility] Address: [address] [place] [address] Performed By: #### 2 132-9 #### [facility] CLIA [id number] [address] [place] [address] [place] Protein [Mass/Vol] 6.5 g/dL Normal 6.3-8.0 [facility] Comment on above: Order Comment: Speci men Type: BLOOD SPECIMEN Ordering Facility: [facility] Address: [address] [place] [address] Performed By: #### 2 132-9 #### [facility] CLIA [id number] [address] [place] [address] [place] Sodium [Moles/Vol] 142 mmol/L Normal 136-144 [facility] Comment on above: Order Comment: Speci men Type: BLOOD SPECIMEN Ordering Facility: [facility] Address: [address] [place] [address] Performed By: #### 2 132-9 #### [facility] CLIA [id number] [address] [place] [address] [place] Urea nitrogen [Mass/Vol] 38 mg/dL High 7-21 [facility] Comment on above: Order Comment: Johana jarvis Type: BLOOD SPECIMEN Ordering Facility: [facility] Address: [address] [place] [address] Performed By: #### 2 132-9 #### [facility] CLIA [id number] [address] [place] [address] [place] HbA1c (Bld)on 05-30-2024 Average glucose Estimated from glycated hemoglobin (Bld) [Mass/Vol] 131 mg/dL Normal [facility] Comment on above: Order Comment: Johana jarvis Type: BLOOD SPECIMEN Ordering Facility: [facility] Address: [address] [place] [address] Result Comment: eAG: (Estimated average glucose) is a calculated value from HgbA1c and is printing supplies sales representative of the average blood glucose level in the last 2-3 month period. Performed By: #### 2 132-9 #### [facility] CLIA [id number] [address] [place] [address] STATES [place] [facility] HbA1c (Bld) [Mass fraction] 6.2 % High 4.3-5.6 [facility] Comment on above: Order Comment: Johana jarvis Type: BLOOD SPECIMEN Ordering Facility: [facility] Address: [address] [place] [address] Result Comment: [place] Diabetes Association guidelines indicate that patients with HgbA1c in the range 5.7-6.4% are at increased risk for development of diabetes, and intervention by lifestyle modification may be beneficial. HgbA1c greater or equal to 6.5% is considered diagnostic of diabetes. Performed By: #### 2 132-9 #### [facility] CLIA [id number] [address] [place] [address] [place] Lipid 1996 panelon 4 Cholesterol [Mass/Vol] 151 mg/dL Normal <200 [facility] Comment on above: Order Comment: Johana jarvis Type: BLOOD SPECIMEN Ordering Facility: [facility] Address: [address] [place] [address] Result Comment: <200 mg/dL, Desirable 200-239 mg/dL, Borderline high >239 mg/dL, High Performed By: #### 2 132-9 #### [facility] CLIA [id number] [facility] [address] [place] Cholesterol in HDL [Mass/Vol] 47 mg/dL Normal >39 [facility] Comment on above: Order Comment: Speci men Type: BLOOD SPECIMEN Ordering Facility: [facility] Address: [address] [place] [address] Result Comment: 40-5 9 mg/dL, Acceptable >59 mg/dL, High: Negative risk factor for coronary heart disease <40 mg/dL, Low: Positive risk factor for coronary heart disease Performed By: #### 2 132-9 #### [facility] CLIA [id number] [address] [place], [place] [address] [place] [address] [place] Cholesterol in LDL [Mass/Vol] 71 mg/dL Normal <100 [facility] Comment on above: Order Comment: Johana jarvis Type: BLOOD SPECIMEN Ordering Facility: [facility] Address: [address] [place] [address] Result Comment: <100 mg/dL, Optimal 100-129 mg/dL, Near optimal/above optimal 130-159 mg/dL, Borderline high 160-189 mg/dL, High >189 mg/dL, Very high Secondary prevention optimal LDL Cholesterol levels are recommended to be < 70 mg/dL Performed By: #### 2 132-9 #### [facility] CLIA [id number] [address] [place], [place] [address] [place] [address] [place] Cholesterol in LDL/Cholesterol in HDL [Mass ratio] 1.51 {ratio} Normal <2.54 [facility] Comment on above: Order Comment: Johana men Type: BLOOD SPECIMEN Ordering Facility: [facility] Address: [address] [place] [address] Result Comment: Refe rence: 1. National Cholesterol Education Program ATP III Guideline At-A-Glance Quick Desk Reference: National Heart, Lung, and Blood [place]. National Institutes of Health. 2001: NIH Publication No. 01-3305. 2. An International Atherosclerosis Society position paper: global recommendations for the management of dyslipidemia: executive summary, Atherosclerosis. 2014: 232(2):410-413. Performed By: #### 2 132-9 #### [facility] CLIA [id number] [facility] [place] [address] [place] Cholesterol in VLDL [Mass/Vol] 33 mg/dL High <30 [facility] Comment on above: Order Comment: Johana jarvis Type: BLOOD SPECIMEN Ordering Facility: [facility] Address: [address] [place] [address] Performed By: #### 2 132-9 #### [facility] CLIA [id number] [address] [place] [address] [place] Cholesterol non HDL [Mass/Vol] 104 mg/dL Normal <130 [facility] Comment on above: Order Comment: Johana jarvis Type: BLOOD SPECIMEN Ordering Facility: [facility] Address: [address] [place] [address] Result Comment: <130 mg/dL, Optimal 130-159 mg/dL, Near optimal/above optimal 160-189 mg/dL, Borderline high 190-219 mg/dL, High >219 mg/dL, Very high Secondary prevention optimal non HDL Cholesterol levels are recommended to be <100 mg/dL Performed By: #### 2 132-9 #### [facility] CLIA [id number] [address] [place] [address] [place] Cholesterol.total/Chol esterol in HDL [Mass ratio] 3.21 {ratio} Normal <5.10 [facility] Comment on above: Order Comment: Johana jarvis Type: BLOOD SPECIMEN Ordering Facility: [facility] Address: [address] [place] [address] Performed By: #### 2 132-9 #### [facility] CLIA [id number] [address] [place] [address] [place] FASTING TIME 13 hrs Normal [facility] Comment on above: Order Comment: Speci men Type: BLOOD SPECIMEN Ordering Facility: [facility] Address: [address] [place] [address] Performed By: #### 2 132-9 #### [facility] CLIA [id number] [address] [place] [address] [place] Triglyceride [Mass/Vol] 165 mg/dL High <150 [facility] Comment on above: Order Comment: Speci men Type: BLOOD SPECIMEN Ordering Facility: [facility] Address: [address] [place] [address] Result Comment: <150 mg/dL, Normal 150-199 mg/dL, Borderline high 200-499 mg/dL, High >499 mg/dL, Very high Performed By: #### 2 132-9 #### [facility] CLIA [id number] [address] [place] [address] [place] T3Free SerPl-mCncon 05-30-20 24 Free T3 [Mass/Vol] 3.7 pg/mL Normal 2.3-4.1 [facility] Comment on above: Order Comment: Speci men Type: BLOOD SPECIMEN Ordering Facility: [facility] Address: [address] [place] [address] Performed By: #### 2 132-9 #### [facility] CLIA [id number] [address] [place] [address] [place] T4 Free SerPl-mCncon 024 Free T4 [Mass/Vol] 2.0 ng/dL High 0.9-1.7 [facility] Comment on above: Order Comment: Speci men Type: BLOOD SPECIMENOrdering Facility: [facility] Address: [address] [place] [address] Performed By: #### 3 024-7, 41626-1, 3051-0, 15326-9 ####[facility] [id number] [place] [address] [place] TSH SerPl-aCncon 05-30-2024 TSH Qn 0.007 m[IU]/L Low 0.270-4.200 [facility] Comment on above: Order Comment: Speci men Type: BLOOD SPECIMEN Ordering Facility: [facility] Address: [address] [place] [address] Performed By: #### 2 132-9 #### [facility] CLIA [id number] [address] [place] [address] Gabriel 05-19-2024 CNPN Telephone (FAMPWS) -------- GELY NEWMAN ([id number]) 1950 F Date Time Provider Department 05/19/24 [facility] During your visit today, we recorded the following information about you: Silvestre Martinez MA 05/19/2024 9:19 AM Signed Pt sent in [employer] message asking for lab orders for her [...] [R53.83] Order(s):LIPID PANEL BASIC [SQLIPB] Order #: [id number] FUTURE COMPREHENSIVE METABOLIC PANEL [SQCMP] Order #: [id number] FUTURE THYROID STIMULATING HORMONE [SQTSH] Order #: [id number] FUTURE T3, FREE [SQFREET3] Order #: [id number] FUTURE T4 FREE/FREE THYROXINE [SQFT4] Order #: [id number] FUTURE VITAMIN D 25 HYDROXY [SQVITD] Order #: [id number] FUTURE COMPLETE BLOOD COUNT AND DIFFERENTIAL [SQCBCDIF] Order #: [id number] FUTURE HEMOGLOBIN A1C [CMCUI5R] Order #: [id number] FUTURE Prescriptions as of 05/19/2024 - glimepiride [...] E11.51 Insulin: No - blood sugar diagnostic (Quadro DynamicsTOUCH ULTRA TEST) test strip Use as instructed [...] 1 tablet by mouth once daily. - Ioyqyqjq-Hynl-Pwf-Folic Acid 18-0.4 mg tab Take 1 tablet [...] Anemia [D (more content not included)... Normal [facility] XR Lumbar spine 3 Viewson * [...] DESCRIBED. PROGRESSION PRIOR STUDY. NO ACUTE ABNORMALITY [employer] Teacher: SANDRA Transcribe Date/Time: Dec 10 2023 1:03P Dictated by : CHASE SUE MD This examination was interpreted and the report reviewed and electronically signed by: CHASE SUE MD on Dec 10 2023 1:17PM EST [facility] Radiology Study observation (narrative) [facility] XR Lumbar spine 3 ViewsOrder ed By: [facility] Provider on 12-10-2023 [facility] Anaerobic cultureOrdered By: Rishi Vasquez on 08-16-2023 Bacteria identified Anaer cx Nom (Unsp spec) No anaerobic bacteria isolated. [facility] Bacteria identified Cx Nom ( Wound)Ordered By: Rishi Vasquez on 08-16-2023 Wound Culture Meth. resistant Stap h. aureus [facility] Gram stain for investigation of transfusion reactionOrdered By: Rishi Vasquez on 08-16-2023 Microscopic observation Gram stain Nom (Unsp spec) [facility] Anaerobic cultureOrdered By: Rishi Vasquez on 07-27-2023 Bacteria identified Anaer cx Nom (Unsp spec) No anaerobic bacteria isolated. [facility] Bacteria identified Cx Nom ( Wound)Ordered By: Rishi Vasquez on 07-27-2023 Wound Culture Meth. resistant Stap h. aureus [facility] Gram stain for investigation of transfusion reactionOrdered By: Rishi Vasquez on 07-27-2023 Microscopic observation Gram stain Nom (Unsp spec) [facility] Anaerobic cultureOrdered By: Rishi Vasquez on 07-26-2023 Bacteria identified Anaer cx Nom (Unsp spec) No anaerobic bacteria isolated. [facility] Bacteria identified Cx Nom ( Wound)Ordered By: Rishi Vasquez on 07-26-2023 Wound Culture Meth. resistant Stap h. aureus [facility] Gram stain for investigation of transfusion reactionOrdered By: Rishi Vasquez on 07-26-2023 Microscopic observation Gram stain Nom (Unsp spec) [facility] ALEJANDRO DIAG W BEN RIGHTon 06-20 [facility] US BREAST LTD RIGHTon 2022 [facility] UA DIP, URINE (POC)on 2022 BILIRUBIN UA (POCT) Negative Negative [facility] CLARITY UA (POCT) Clear [facility] COLOR UA (POCT) Yellow [facility] GLUCOSE UA (POCT) Negative Negative mg/dL [facility] HEMOGLOBIN/BLOOD UA (POCT) Trace-intact Abnormal Negative [facility] KETONE UA (POCT) Negative Negative mg/dL [facility] LEUKOCYTES UA (POCT) Large [facility]normal [facility] NITRITE UA (POCT) Positive Abnormal Negative [facility] PH UA (POCT) 7.0 4.5 - 8.0 [facility] Protein Ql (U) 30 mg/dL Abnormal Negative mg/dL [facility] SPECIFIC GRAVITY UA (POCT) 1.015 1.005 - 1.030 [facility] UROBILINOGEN UA (POCT) 0.2 E.U./dL Jacki l E.U./dL [facility] ALEJANDRO SCREENINGon 05-29-2023 [facility] No Panel Informationon 12-29 [facility] US THYROID/PARATHYROIDon [facility] UA DIP, URINE (POC)on 2021 BILIRUBIN UA (POCT) Negative Negative [facility] CLARITY UA (POCT) Cloudy [facility] COLOR UA (POCT) Yellow [facility] GLUCOSE UA (POCT) 100 mg/dL Abnormal Negative mg/dL [facility] HEMOGLOBIN/BLOOD UA (POCT) Small Abnormal Negative [facility] KETONE UA (POCT) Negative Negative mg/dL [facility] LEUKOCYTES UA (POCT) Moderate Abnormal Negative [facility] NITRITE UA (POCT) Negative Negative [facility] PH UA (POCT) 7.0 4.5 - 8.0 [facility] Protein Ql (U) 100 mg/dL Abnormal Negative mg/dL [facility] SPECIFIC GRAVITY UA (POCT) 1.020 1.005 - 1.030 [facility] UROBILINOGEN UA (POCT) 0.2 E.U./dL Jacki l E.U./dL [facility] No Panel Informationon 08-15 Radiology Study observation (narrative) [facility] XR Sternum Lateral and right anterior obliqueon 08-15-2022 IMPRESSION: No acute osseous abnormality [employer] Teacher: SANDRA Transcribe Date/Time: Aug 15 2022 1:22P Dictated by : MAURICIO REYNOLDS MD This examination was interpreted and the report reviewed and electronically signed by: MAURICIO REYNOLDS MD on Aug 15 2022 1:23PM [facility] DIVISION OF RADIOLOGY * * *Final [...] lesion. IMPRESSION IMPRESSION: No acute osseous abnormality [employer] Teacher: [facility] Transcribe Date/Time: Aug 15 2022 1:22P Dictated by : MAURICIO REYNOLDS MD This examination was interpreted and the report reviewed and electronically signed by: MAURICIO REYNOLDS MD on Aug 15 2022 1:23PM [facility] XR Sternum Lateral and right anterior obliqueOrdered By: [facility] Provider on 08-15-2022 [facility] XR Wrist - right 4 Viewson 0 08-15-2022 IMPRESSION: No acute fracture. Degenerative disease of the right wrist. [employer] Teacher: PSCB Transcribe Date/Time: Aug 15 2022 1:20P Dictated by : MAURICIO REYNOLDS MD This examination was interpreted and the report reviewed and electronically signed by: MAURICIO REYNOLDS MD on Aug 15 2022 1:21PM [facility] DIVISION OF RADIOLOGY * * *Final [...] calcifications are noted. DIVISION OF RADIOLOGY Provider, [facility] - 08/15/2022 * * *Final Report* [...] fracture. Degenerative disease of the right wrist. [employer] Teacher: SANDRA Transcribe Date/Time: Aug 15 2022 1:20P Dictated by : MAURICIO REYNOLDS MD This examination was interpreted and the report reviewed and electronically signed by: MAURICIO REYNOLDS MD on Aug 15 2022 1:21PM EST [facility] XR SHOULDER GENERAL 3V OR MO RE AP/TRUE AP/OTHER RIGHTon 06-17-2022 [facility] XR Shoulder - right 3 Viewso n 06-17-2022 IMPRESSION: 1. No acute fracture or dislocation. 2. Radiographic changes which can be seen in association with rotator cuff tendonopathy. [employer] Teacher: [facility] Transcribe Date/Time: Jun 17 2022 9:43A Dictated [...] relevant examinations available for comparison within the [facility]. RESULT: 3 views of the [...] relevant examinations available for comparison within the [facility]. RESULT: 3 views of the [...] seen in association with rotator cuff tendonopathy. [employer] Teacher: SANDRA Transcribe Date/Time: Jun 17 2022 9:43A Dictated by : JA GOMEZ MD This examination was interpreted and the report reviewed and electronically signed by: JA GOMEZ MD on Jun 17 2022 9:45AM EST [facility] Radiology Study observation (narrative) [facility] XR Shoulder - right 3 ViewsO rdered By: [facility] Provider on 06-17-2022 [facility] ALEJANDRO SCREENINGon 06-05-2022 [facility] HEMOGLOBIN A1C (POC)on 05-31 HbA1c (Bld) [Mass fraction] 6.2 % 4.2 - 5.6 % [facility] Renal function 2000 panelon 03-07-2022 Albumin [Mass/Vol] 4.1 g/dL 3.9 - 4.9 g/dL [facility] Anion gap [Moles/Vol] 14 mmol/L 9 - 18 mmol/L [facility] Calcium [Mass/Vol] 9.9 mg/dL 8.5 - 10. 2 mg/dL [facility] Chloride [Moles/Vol] 105 mmol/L 97 - 10 5 mmol/L [facility] CO2 [Moles/Vol] 23 mmol/L 22 - 30 mmol/L [facility] Creatinine [Mass/Vol] 1.29 mg/dL High 0.58 - 0.96 mg/dL [facility] Estimated Glomerular Filtration Rate 45 mL/min/1.73m Low >=60 mL/min/1.73 m [facility] Glucose [Mass/Vol] 167 mg/dL High 74 - 99 mg/dL [facility] Phosphate [Mass/Vol] 4.0 mg/dL 2.7 - 4 .8 mg/dL [facility] Potassium [Moles/Vol] 4.1 mmol/L 3.7 - 5.1 mmol/L [facility] Sodium [Moles/Vol] 142 mmol/L 136 - 144 mmol/L [facility] Urea nitrogen [Mass/Vol] 42 mg/dL High 7 - 21 mg/dL [facility] Glucose Glucometer (BldC) [M ass/Vol]on 01-20-2022 Glucose [Mass/Vol] 163 mg/dL 74-106 [facility] Work Phone: Comment on above: MANAGEMENT OF PATIEN T CARE PER NURSING PROTOCOL Office Visit: Thyroid Nodule son 08-30-2017 Dietary management education, guidance, and counseling (procedure) yes Invalid Interpretation Code [facility] Work Phone: Documentation of current medications (procedure) Done Invalid Interpretation Code [facility] Work Phone: Fall risk assessment No Invalid Interpretation Code [facility] Work Phone: Tobacco smoking status NHIS Never Invalid Interpretation Code [facility] Work Phone: Tobacco use [facility] Former smoker Invalid Interpretation Code [facility] Work Phone: Office Visiton 06-11-2017 Dietary management education, guidance, and counseling (procedure) yes Invalid Interpretation Code [facility] Work Phone: [phone] Documentation of current medications (procedure) Done Invalid Interpretation Code [facility] Work Phone: [phone] Protein mass conc Done [facility] Work Phone: [phone] Clinical Lists Update: 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 Left ventricular Ejection fraction 60 % Invalid Interpretation Code [facility] Work Phone: [phone] 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 phalanxon 05-02-2017 Dietary management education, guidance, and counseling (procedure) yes Invalid Interpretation Code [facility] Work Phone: [phone] Documentation of current medications (procedure) Done Invalid Interpretation Code [facility] Work Phone: [phone] Fall risk assessment No Invalid Interpretation Code [facility] Work Phone: Protein mass conc Done [facility] Work Phone: Tobacco smoking status NHIS Never Invalid Interpretation Code [facility] Work Phone: Tobacco smoking status NHIS Former smoker [facility] Work Phone: Tobacco use CP Former smoker Invalid Interpretation Code [facility] Work Phone: Office Visiton 04-23-2017 Protein mass conc Done [facility] Work Phone: Lab Report: CRPon 02-21-2017 CRP [Mass/Vol] mg/L Invalid Interpretation Code 0.0-3.0 [facility] Work Phone: Lab Report: Erythrocyte [...] TSH Qn < 0.01 uIU/mL Low 0.358-3.74 [facility] Work Phone: Office Visit: Thyroid evalua tionon 02-06-2017 Adolescent depression screening assessment Adolescent depression screening assessment Invalid Interpretation Code [facility] Work Phone: [phone] Adult depression screening assessment Adolescent depression screening assessment Invalid Interpretation Code [facility] Work Phone: Fall risk assessment No [facility] Work Phone: Tobacco smoking status NHIS Never [facility] Work Phone: Tobacco smoking status NHIS Former smoker [facility] Work Phone: Microbiology: Culture, Wound on 01-28-2017 CUW Trimethoprim/Sulfame tho $ <=20 S Invalid Interpretation Code [facility] Work Phone: wound culture Trimethoprim/Sulfame tho $ <=20 S Invalid Interpretation Code [facility] Work Phone: [phone] Clinical Lists Update: Prelo asbestos remover 01-15-2017 Cholesterol 164 mg/dL Invalid Interpretation Code [facility] Work Phone: [phone] Cholesterol to HDL Ratio 2.98 {ratio} Invalid Interpretation Code [facility] Work Phone: [phone] HDL Cholesterol 55 mg/dL Low [facility] Work Phone: [phone] LDL Cholesterol 67 mg/dL Invalid Interpretation Code [facility] Work Phone: [phone] LDL/HDL ratio, serum 1.22 Invalid Interpretation Code [facility] Work Phone: [phone] Triglyceride 210 mg/dL High [facility] Work Phone: [phone] low density lipoproteins 42 mg/dL High [facility] Work Phone: [phone] Lab Report: Basic Metabolic Profile (BMP)on 01-12-2017 Anion gap 8 mmol/L Invalid Interpretation Code 5-15 [facility] Work Phone: [phone] Anion gap [Moles/Vol] 8 mmol/L 5-15 [facility] Work Phone: Calcium [Mass/Vol] 9.0 mg/dL Invalid Interpretation Code 8.5-10.1 [facility] Work Phone: [phone] Chloride [Moles/Vol] 105 mmol/L Invalid Interpretation Code 98-107 [facility] Work Phone: [phone] CO2 26.0 mmol/L Invalid Interpretation Code 21.0-32.0 [facility] Work Phone: [phone] CO2 (BldV) [Partial pressure] 26.0 mmol/L 21.0-32.0 [facility] Work Phone: Creatinine [Mass/Vol] 1.63 mg/dL High 0.55-1.02 [facility] Work Phone: eGFR (non-black) 41 mL/min/{1.73_m2} Low >60 [facility] Work Phone: EST GFR - AA 41 mL/min Low >60 [facility] Work Phone: GFR/1.73 sq M predicted among non-blacks MDRD (S/P/Bld) [Vol rate/Area] 34 mL/min/{1.73_m2} Low >60 [facility] Work Phone: Glucose 210 mg/dL High 70-110 [facility] Work Phone: Glucose [Mass/Vol] 210 mg/dL High 70-110 [facility] Work Phone: Potassium [Moles/Vol] 4.6 mmol/L Invalid Interpretation Code 3.5-5.1 [facility] Work Phone: Sodium [Moles/Vol] 139 mmol/L Invalid Interpretation Code 136-145 [facility] Work Phone: Urea nitrogen [Mass/Vol] 53 mg/dL High 7-18 [facility] Work Phone: Urea nitrogen/Creatinine [Mass ratio] 32.5 RATIO High 10-20 [facility] Work Phone: Replaced Document: (P) CBC W /Diff, Automatedon 01-12-2017 Absolute Neut 3.7 X10 3/UL Invalid Interpretation Code 2.0-7.7 [facility] Work Phone: [phone] Basophils/100 leukocytes 1.2 % High 0-1 [facility] Work Phone: [phone] Basophils/100 WBC (Bld) 1.2 % High 0-1 [facility] Work Phone: Eosinophils/100 leukocytes 8.4 % High 0-5 [facility] Work Phone: Eosinophils/100 WBC (Bld) 8.4 % High 0-5 [facility] Work Phone: Erythrocyte distribution width (RBC) [Ratio] 44.7 fL High 35.1-43.9 [facility] Work Phone: [phone] Erythrocyte distribution width (RBC) [Ratio] 13.9 % 11.6-14.6 [facility] Work Phone: Erythrocytes (RBC) 4.04 10*6/uL Low 4.2-5.[address] [facility] Work Phone: [phone] Hematocrit (Bld) [Volume fraction] 36.0 % Low 37-47 [facility] Work Phone: [phone] Hematocrit (HCT) 36.0 % Low 37-47 [facility] Work Phone: [phone] Hemoglobin (Bld) [Mass/Vol] 11.6 g/dL Low 12.0-15.0 [facility] Work Phone: [phone] Immature granulocytes (Bld) [#/Vol] 0.200 % 0.0-0.9 [facility] Work Phone: [phone] immature granulocytes, percentage of total cells, blood 0.200 % Invalid Interpretation Code 0.0-0.9 [facility] Work Phone: [phone] Immature granulocytes/100 WBC (Bld) 0.200 % Invalid Interpretation Code 0.0-0.9 [facility] Work Phone: Lymphocytes 1.53 X10 3/UL Invalid Interpretation Code 0.83-4.51 [facility] Work Phone: [phone] Lymphocytes (Bld) [#/Vol] 1.53 X10 3/UL 0.83-4.51 [facility] Work Phone: [phone] Lymphocytes/100 leukocytes 23.3 % Invalid Interpretation Code 19-41 [facility] Work Phone: [phone] Lymphocytes/100 WBC (Bld) 23.3 % 19-41 [facility] Work Phone: MCH 28.7 pg Invalid Interpretation Code 27.0-32.0 [facility] Work Phone: [phone] MCH (RBC) [Entitic mass] 28.7 pg 27.0-32.0 [facility] Work Phone: MCHC 32.2 G/GL Invalid Interpretation Code 32-36 [facility] Work Phone: [phone] MCHC (RBC) [Mass/Vol] 32.2 G/GL 32-36 [facility] Work Phone: MCV 89.1 fL Invalid Interpretation Code 81-99 [facility] Work Phone: [phone] MCV (RBC) [Entitic vol] 89.1 fL 81-99 [facility] Work Phone: Monocytes/100 leukocytes 10.5 % High 0-10 [facility] Work Phone: [phone] Monocytes/100 WBC (Bld) 10.5 % High 0-10 [facility] Work Phone: neutrophil count, blood 3.7 X10 3/UL Invalid Interpretation Code 2.0-7.7 [facility] Work Phone: [phone] Neutrophils (Bld) [#/Vol] 3.7 X10 3/UL 2.0-7.7 [facility] Work Phone: Neutrophils/100 leukocytes 56.4 % Invalid Interpretation Code 47-70 [facility] Work Phone: [phone] Neutrophils/100 WBC (Bld) 56.4 % 47-70 [facility] Work Phone: Platelet mean volume (Bld) [Entitic vol] 10.4 fL 6.2-12.0 [facility] Work Phone: Platelets 239 10*3/mm3 Invalid Interpretation Code 150-450 [facility] Work Phone: [phone] Platelets (Bld) [#/Vol] 239 10*3/mm3 150-450 [facility] Work Phone: PMV by Stevo 10.4 fL Invalid Interpretation Code 6.2-12.0 [facility] Work Phone: [phone] RBC (Bld) [#/Vol] 4.04 10*6/uL Low 4.2-5.4 [facility] Work Phone: RDW SD 44.7 fL High 35.1-43.9 [facility] Work Phone: RDW-CA 13.9 % Invalid Interpretation Code 11.6-14.6 [facility] Work Phone: [phone] red blood cell distribution width, size density 44.7 fL High 35.1-43.9 [facility] Work Phone: [phone] WBC (Bld) [#/Vol] 6.6 10*3/uL 4.4-11.0 [facility] Work Phone: WBC (Leukocytes) 6.6 10*3/uL Invalid Interpretation Code 4.4-11.0 [facility] Work Phone: [phone] Lab Report: MRSA Wound DNA b y PCRon 01-04-2017 GE use only - for [employer] import when terms are not otherwise specified Positive High Negative [facility] Work Phone: [phone] INR Coag (Bld) [Relative time] Positive High Negative [facility] Work Phone: SA RESULT Positive High Negative [facility] Work Phone: Office Visit: Thyroid evalua tionon 12-20-2016 Colonoscopy (procedure) Colonoscopy (procedure) Invalid Interpretation Code [facility] Work Phone: [phone] Protein mass conc Colonoscopy (procedure) [facility] Work Phone: Lab Report: CBC W/Diff, Auto matedon 12-13-2016 Anisocytosis presence RARE Invalid Interpretation Code [facility] Work Phone: [phone] Anisocytosis Ql (Bld) RARE [facility] Work Phone: complete blood count (CBC), comments . Invalid Interpretation Code [facility] Work Phone: [phone] Pathologist Cyto stain Nom (Cvx/Vag) [ID] May foll Invalid Interpretation Code [facility] Work Phone: Platelets LM Ql (Bld) ADEQUATE Invalid Interpretation Code ADEQ [facility] Work Phone: SMEAR COMMENT . Invalid Interpretation Code [facility] Work Phone: Lab Report: IgG Subclasseson 12-02-2016 IgG subclass 1 (S) [Mass/Vol] 392 mg/dL Low 422-1292 [facility] Work Phone: IgG subclass 2 (S) [Mass/Vol] 216 mg/dL Invalid Interpretation Code 117-747 [facility] Work Phone: IgG subclass 3 (S) [Mass/Vol] 42 mg/dL Invalid Interpretation Code 41-129 [facility] Work Phone: IgG subclass 4 (S) [Mass/Vol] 9 mg/dL Invalid Interpretation Code 1-291 [facility] Work Phone: Office Visit: day 7 of Cefta raline (mrsa, enterobacter, actinomyces)on 11-22-2016 Adult depression screening assessment Adult depression screening assessment Invalid Interpretation Code [facility] Work Phone: [phone] PHQ-9 quick depression assessment panel [Reported.PHQ] Adult depression screening assessment [facility] Work Phone: Lab Report: GEGE + Protein El ect, Serumon 11-21-2016 Albumin [Mass/Vol] 2.5 g/dL Low 2.9-4.4 [facility] Work Phone: Albumin/Globulin [Mass ratio] 0.9 {ratio} Invalid Interpretation Code 0.7-1.7 [facility] Work Phone: Alpha 2 globulin Elph [Mass/Vol] 1.1 g/dL High 0.4-1.0 [facility] Work Phone: [id number] 0.3 g/dL Invalid Interpretation Code 0.0-0.4 [facility] Work Phone: BETA GLOBULIN 0.9 g/dL Invalid Interpretation Code 0.7-1.3 [facility] Work Phone: Gamma globulin Elph [Mass/Vol] 600 mg/dL Invalid Interpretation Code Units converted. See lab report for original value. [facility] Work Phone: Globulin 2.9 g/dL Invalid Interpretation Code 2.2-3.9 [facility] Work Phone: [phone] Globulin 0.9 g/dL Invalid Interpretation Code 0.7-1.3 [facility] Work Phone: [phone] Globulin 0.3 g/dL Invalid Interpretation Code 0.0-0.4 [facility] Work Phone: [phone] Globulin (S) [Mass/Vol] 2.9 g/dL 2.2-3.9 [facility] Work Phone: GEGE RESULT,S Comment Invalid Interpretation Code . [facility] [facility] Work Phone: IgA [Mass/Vol] 249 mg/dL Invalid Interpretation Code 87-352 [facility] Work Phone: [phone] IgG [Mass/Vol] 584 mg/dL Low 700-1600 [facility] Work Phone: IgM [Mass/Vol] 40 mg/dL Invalid Interpretation Code 26-217 [facility] Work Phone: lab comments Comment Invalid Interpretation Code . [facility] Work Phone: [phone] M-SPIKE . g/dL Invalid Interpretation Code [facility] Work Phone: [phone] MONOCLONAL PROTEIN . g/dL Invalid Interpretation Code [facility] Work Phone: [phone] NOTE: Comment Invalid Interpretation Code . [facility] Work Phone: [phone] Protein [Mass/Vol] 5.4 g/dL Low 6.0-8.5 [facility] Work Phone: Protein mass conc Comment . [facility] Work Phone: serum protein electrophoresis, interpretation/comment Comment Invalid Interpretation Code . [facility] Work Phone: [phone] Lab Report: Bedside Glucoseo n 11-18-2016 Glucose 352 mg/dL High 70-110 [facility] Work Phone: [phone] Glucose [Mass/Vol] 352 mg/dL High 70-110 [facility] Work Phone: Microbiology: Fungus Stainon 11-18-2016 fungus stain . Invalid Interpretation Code [facility] Work Phone: [phone] FUNST . Invalid Interpretation Code [facility] Work Phone: Lab Report: Basic Metabolic Profile (BMP)on 11-17-2016 Creatinine 45.87 mL/min Invalid Interpretation Code [facility] Work Phone: [phone] Lab Report: Iron+Iron Bindin g Capacityon 11-17-2016 Iron [Mass/Vol] 32 ug/dL Low 50-170 [facility] Work Phone: [phone] Iron binding capacity [Mass/Vol] 223 ug/dL Low 250-450 [facility] Work Phone: [phone] Iron saturation [Mass fraction] 14.3 % Low 15.0-55.0 [facility] Work Phone: Lab Report: Hemoglobin A1con 11-16-2016 HbA1c (Bld) [Mass fraction] 5.3 % Invalid Interpretation Code 4.2-6.3 [facility] Work Phone: Lab Report: Comprehensive Me tabolic Profilon 11-14-2016 Albumin [Mass/Vol] 2.9 g/dL Low 3.4-5.0 [facility] Work Phone: Alkaline phosphatase (ALP) 56 U/L Invalid Interpretation Code 45-117 [facility] Work Phone: [phone] ALP (Bld) [Catalytic activity/Vol] 56 U/L 45-117 [facility] Work Phone: [phone] ALT [Catalytic activity/Vol] 14 U/L Invalid Interpretation Code 12-78 [facility] Work Phone: [phone] AST [Catalytic activity/Vol] 13 U/L Low 15-37 [facility] Work Phone: [phone] Bilirubin [Mass/Vol] 0.20 mg/dL Invalid Interpretation Code 0.20-1.00 [facility] Work Phone: Protein [Mass/Vol] 6.9 g/dL Invalid Interpretation Code 6.4-8.2 [facility] Work Phone: Lab Report: Prealbuminon Prealbumin 12.9 mg/dL Low 20.0-40.0 [facility] Work Phone: Prealbumin Elph [Mass/Vol] 12.9 mg/dL Low 20.0-40.0 [facility] Work Phone: Lab Report: Vancomycin, Trou gh Levelon 10-09-2016 Vancomycin trough [Mass/Vol] 18.7 ug/mL High 5.0-15.0 [facility] Work Phone: Lab Report: Magnesiumon 08-19 Magnesium [Mass/Vol] 2.3 mg/dL Invalid Interpretation Code 1.8-2.4 [facility] Work Phone: Lab Report: Phosphoruson PHOS 3.8 mg/dL Invalid Interpretation Code 2.5-4.9 [facility] Work Phone: Phosphate [Mass/Vol] 3.8 mg/dL 2.5-4.[address] [facility] Work Phone: Phosphorus Concentratation-Random 3.8 mg/dL Invalid Interpretation Code 2.5-4.9 [facility] Work Phone: Lab Report: Liver Profileon 09-01-2016 Bilirubin.direct [Mass/Vol] 0.08 mg/dL Invalid Interpretation Code 0.00-0.30 [facility] Work Phone: Lab Report: Partial Thrombop last Timeon 09-01-2016 aPTT Coag (Bld) [Time] 46.2 s High 24.1-36.2 [facility] Work Phone: Lab Report: Prothrombin Time w/INRon 09-01-2016 INR Coag (PPP) [Relative time] 1.2 {INR} Invalid Interpretation Code [facility] Work Phone: INR in blood by coagulation 1.2 {INR} Invalid Interpretation Code [facility] Work Phone: [phone] PT Coag (PPP) [Time] 14.8 s Invalid Interpretation Code 11.7-14.9 [facility] Work Phone: Office Visit: Thyroid evalua hunter 04-19-2016 MG Breast screening Normal Bilateral Invalid Interpretation Code [facility] Work Phone: Clinical Lists Update: Prelo asbestos remover 06-23-2015 PT Coag (PPP) [Time] 9.1 s Invalid Interpretation Code [facility] Work Phone: Office Visiton 05-25-2015 Protein mass conc yes [facility] Work Phone: Smoking cessation education (procedure) yes Invalid Interpretation Code [facility] Work Phone: Replaced Document: Midmark E CG Observationson 05-25-2015 EKG QRS axis -36 deg Invalid Interpretation Code [facility] Work Phone: electrocardiogram interpretation Sinus Bradycardia -Left axis. ABNORMAL Invalid Interpretation Code [facility] Work Phone: Interpretation Sinus Bradycardia -L eft axis. ABNORMAL Invalid Interpretation Code [facility] Work Phone: P [place] 39 deg Invalid Interpretation Code [facility] Work Phone: P wave axis, electrocardiogram 39 deg Invalid Interpretation Code [facility] Work Phone: MI Interval 154 ms Invalid Interpretation Code [facility] Work Phone: MI interval, electrocardiogram 154 ms Invalid Interpretation Code [facility] Work Phone: Pulse (Heart Rate) 55 /min Invalid Interpretation Code [facility] Work Phone: QRS axis, electrocardiogram -36 deg Invalid Interpretation Code [facility] Work Phone: QRS Duration 104 ms Invalid Interpretation Code [facility] Work Phone: QRS duration, electrocardiogram 104 ms Invalid Interpretation Code [facility] Work Phone: QT Interval new path ms Invalid Interpretation Code [facility] Work Phone: QT interval, electrocardiogram new path ms Invalid Interpretation Code [facility] Work Phone: T [place] 31 deg Invalid Interpretation Code [facility] Work Phone: T wave axis, electrocardiogram 31 deg Invalid Interpretation Code [facility] Work Phone: Office Visiton 02-22-2015 Cholesterol [Mass/Vol] 164 mg/dL [facility] Work Phone: [phone] Cholesterol in HDL [Mass/Vol] 57 mg/dL [facility] Work Phone: [phone] Cholesterol in LDL [Mass/Vol] 76 mg/dL [facility] Work Phone: [phone] Triglyceride [Mass/Vol] 155 mg/dL [facility] Work Phone: Clinical Lists Update: Prelo asbestos remover 02-09-2015 Free T4 index Calc [Mass/Vol] 10.2 Invalid Interpretation Code [facility] Work Phone: T4 [Mass/Vol] 9.9 ug/dL Invalid Interpretation Code [facility] Work Phone: Throyxin (T4) Free 10.2 ng/dL Invalid Interpretation Code [facility] Work Phone: Office Visiton 12-29-2014 cardiac risk group C Invalid Interpretation Code [facility] Work Phone: General cardiovascular disease 10Y risk [#] Soldier.Jarad'Chance N/A Invalid Interpretation Code [facility] Work Phone: Clinical Lists Update: Pre asbestos remover 11-18-2014 Cholesterol in LDL/Cholesterol in HDL [Mass ratio] 2.06 [facility] Work Phone: Cholesterol.total/Chol esterol in HDL [Mass ratio] 3.56 {ratio} [facility] Work Phone: Lipoprotein.pre-beta [Mass/Vol] 32 mg/dL [facility] Work Phone: Replaced Document: Nona Cheng CG Observationson 01-12-2014 Pulse (Heart Rate) 406 ms Invalid Interpretation Code [facility] Work Phone: Office Visit: Thyroid evalua hunter 01-17-2013 General categories Cyto stain (Cvx/Vag) [Interp] Normal Invalid Interpretation Code [facility] Work Phone: Vital Signs Date Time Vital Sign Value Performing Clinician Facility 05-21-2025 11:23-0400 Body temperature 97.7 [degF] Dr. Rishi Vasquez DO Work Phone: [facility] 05-21-2025 11:23-0400 Diastolic blood pressure 47 mm[Hg] Dr. Rishi Vasquez DO Work Phone: 7(736)343-146742 [place] [address] 05-21-2025 11:23-0400 Heart rate 57 /min Dr. Rishi Vasquez DO Work Phone: 3(851)939-325015 [place] [address] 05-21-2025 11:23-0400 Respiratory rate 16 /min Dr. Rishi Vasquez DO Work Phone: 5(969)884-840742 [place] [address] 05-21-2025 11:23-0400 SaO2% (BldA) [Mass fraction] 96 % Dr. Rishi Vasquez DO Work Phone: 2(840)011-767042 [place] [address] 05-21-2025 11:23-0400 Systolic blood pressure 111 mm[Hg] Dr. Rishi Vasquez DO Work Phone: 5(206)586-834015 [place] [address] 05-21-2025 10:36-0400 Body height 167.[address] Rishi Vasquez DO Work Phone: 8(343)913-792415 [place] [address] 05-21-2025 10:36-0400 Body weight 73.[address] Rishi Vasquez DO Work Phone: 8(135)993-248142 [place] [address] 05-21-2025 03:11-0400 Inhaled oxygen flow rate 2 L/min Dr. Rishi Vasquez DO Work Phone: 3(372)219-876615 [place] [address] 05-21-2025 03:05-0400 Body mass index (BMI) [Ratio] 25.9 kg/m2 Dr. Rishi Vasquez DO Work Phone: 7(486)582-423542 [place] [address] 05-20-2025 15:37-0400 Inhaled oxygen concentration 96 % Dr. Rishi Vasquez DO Work Phone: 7(136)793-196142 [place] [address] 05-18-2025 23:00-0400 Diastolic blood pressure 54 mm[Hg] Dr. Rishi Vasquez DO Work Phone: 9(909)016-875215 [place] [address] 05-18-2025 23:00-0400 Heart rate 83 /min Dr. Rishi Vasquez DO Work Phone: 3(450)900-712215 [place] [address] 05-18-2025 23:00-0400 SaO2% (BldA) [Mass fraction] 96 % Dr. Rishi Vasquez DO Work Phone: 9(905)289-372815 [place] [address] 05-18-2025 23:00-0400 Systolic blood pressure 105 mm[Hg] Dr. Rishi Vasquez DO Work Phone: 2(109)792-778315 [place] [address] 05-18-2025 20:00-0400 Body temperature 98.9 [degF] Dr. Rishi Vasquez DO Work Phone: 8(705)431-945415 [place] [address] 05-18-2025 16:00-0400 Inhaled oxygen flow rate 2 L/min Dr. Rishi Vasquez DO Work Phone: 0(040)216-167015 [place] [address] 05-18-2025 10:51-0400 Body height 167.[address] Rishi Vasquez DO Work Phone: 0(190)312-701215 [place] [address] 05-18-2025 10:51-0400 Body weight 69.[address] Rishi Vasquez DO Work Phone: 3(591)975-219715 [place] [address] 05-18-2025 08:00-0400 Inhaled oxygen concentration 96 % Dr. Rishi Vasquez DO Work Phone: 4(103)161-07[address] [place] [address] 05-18-2025 06:00-0400 Body mass index (BMI) [Ratio] 24.5 kg/m2 Dr. Rishi Vasquez DO Work Phone: 0(684)602-149515 [place] [address] 05-18-2025 02:01-0400 Body temperature 103.1 [degF] Dr. Rishi Vasquez DO Work Phone: 6(556)897-043215 [place] [address] 05-18-2025 02:01-0400 Diastolic blood pressure 60 mm[Hg] Dr. Rishi Vasquez DO Work Phone: 3(447)120-289915 [place] [address] 05-18-2025 02:01-0400 Heart rate 100 /min Dr. Rishi Vasquez DO Work Phone: 0(640)271-763415 [place] [address] 05-18-2025 02:01-0400 Respiratory rate 17 /min Dr. Rishi Vasquez DO Work Phone: 9(941)975-382315 [place] [address] 05-18-2025 02:01-0400 SaO2% (BldA) [Mass fraction] 92 % Dr. Rishi Vasquez DO Work Phone: 6(991)395-215715 [place] [address] 05-18-2025 02:01-0400 Systolic blood pressure 114 mm[Hg] Dr. Rishi Vasquez DO Work Phone: 0(022)776-473415 [place] [address] 05-17-2025 21:40-0400 Body height 167.[address] Rishi Vasquez DO Work Phone: 5(064)884-628415 [place] [address] 05-17-2025 21:40-0400 Body mass index (BMI) [Ratio] 25.9 kg/m2 Dr. Rishi Vasquez DO Work Phone: 2(310)457-391915 [place] [address] 05-17-2025 21:40-0400 Body weight 72.[address] Rishi Vasquez DO Work Phone: 3(179)910-737415 [place] [address] 05-13-2025 16:09-0400 Body temperature 98.2 [degF] Dr. Rishi Vasquez DO Work Phone: 6(758)087-553515 [place] [address] 05-13-2025 16:09-0400 Body weight 70.[address] Rishi Vasquez DO Work Phone: 9(547)419-572315 [place] [address] 05-13-2025 16:09-0400 Diastolic blood pressure 54 mm[Hg] Dr. Rishi Vasquez DO Work Phone: 6(637)282-068715 [place] [address] 05-13-2025 16:09-0400 Heart rate 60 /min Dr. Rishi Vasquez DO Work Phone: 8(357)069-731415 [place] [address] 05-13-2025 16:09-0400 Respiratory rate 16 /min Dr. Rishi Vasquez DO Work Phone: 4(204)149-537815 [place] [address] 05-13-2025 16:09-0400 SaO2% (BldA) [Mass fraction] 97 % Dr. Rishi Vasquez DO Work Phone: [facility] 05-13-2025 16:09-0400 Systolic blood pressure 130 mm[Hg] Dr. Rishi Vasquez DO Work Phone: [facility] 05-07-2025 09:19-0400 Body height 167.[address] Rishi Vasquez DO Work Phone: [facility] 05-07-2025 09:19-0400 Body mass index (BMI) [Ratio] 24.7 kg/m2 Dr. Rishi Vasquez DO Work Phone: [facility] 05-07-2025 09:19-0400 Body weight 69.[address] Rishi Vasquez DO Work Phone: [facility] 05-07-2025 09:19-0400 Diastolic blood pressure 63 mm[Hg] Dr. Rishi Vasquez DO Work Phone: 3(709)376-416842 [place] [address] 05-07-2025 09:19-0400 Heart rate 56 /min Dr. Rishi Vasquez DO Work Phone: 7(681)794-012442 [place] [address] 05-07-2025 09:19-0400 Respiratory rate 16 /min Dr. Rishi Vasquez DO Work Phone: [facility] 05-07-2025 09:19-0400 Systolic blood pressure 123 mm[Hg] Dr. Rishi Vasquez DO Work Phone: [facility] 04-30-2025 11:13-0400 Body mass index (BMI) [Ratio] 24.5 kg/m2 Ld Escobedo APRN.SHIRT MARKER Work Phone: [facility] 04-30-2025 11:13-0400 Body weight 68.86 kg Ld Escobedo APRN.SHIRT MARKER Work Phone: [facility] 04-30-2025 11:13-0400 Diastolic blood pressure 60 mm[Hg] Ld Chandra IRON INSTALLER.SHIRT MARKER Work Phone: [facility] 04-30-2025 11:13-0400 Heart rate 77 /min Ld Chandra IRON INSTALLER.SHIRT MARKER Work Phone: [facility] 04-30-2025 11:13-0400 Respiratory rate 12 /min Ld Chandra IRON INSTALLER.SHIRT MARKER Work Phone: [facility] 04-30-2025 11:13-0400 SaO2% (BldA) [Mass fraction] 98 % Ld Chandra IRON INSTALLER.SHIRT MARKER Work Phone: [facility] 04-30-2025 11:13-0400 Systolic blood pressure 130 mm[Hg] Ld Chandra IRON INSTALLER.SHIRT MARKER Work Phone: [facility] 04-15-2025 11:26-0400 Body height 167.[address] Rishi Vasquez DO Work Phone: [facility] 04-15-2025 11:26-0400 Body weight 74.[address] Rishi Vasquez DO Work Phone: [facility] 04-14-2025 07:25-0400 Body mass index (BMI) [Ratio] 26.4 kg/m2 Dr. Rishi Vasquez DO Work Phone: [facility] 04-03-2025 11:01-0400 Body temperature 98.2 [degF] Dr. Rishi Vasquez DO Work Phone: [facility] 04-03-2025 11:01-0400 Body weight 74.[address] Rishi Vasquez DO Work Phone: [facility] 04-03-2025 11:01-0400 Diastolic blood pressure 59 mm[Hg] Dr. Rishi Vasquez DO Work Phone: [facility] 04-03-2025 11:01-0400 Heart rate 60 /min Dr. Rishi Vasquez DO Work Phone: [facility] 04-03-2025 11:01-0400 Respiratory rate 14 /min Dr. Rishi Vasquez DO Work Phone: [facility] 04-03-2025 11:01-0400 SaO2% (BldA) [Mass fraction] 97 % Dr. Rishi Vasquez DO Work Phone: [facility] 04-03-2025 11:01-0400 Systolic blood pressure 124 mm[Hg] Dr. Rishi Vasquez DO Work Phone: [facility] 03-27-2025 10:16-0400 Diastolic blood pressure 68 mm[Hg] Yumiko Podlogar IRON INSTALLER.SHIRT MARKER Work Phone: [facility] 03-27-2025 10:16-0400 Heart rate 74 /min Yumiko Podlogar IRON INSTALLER.SHIRT MARKER Work Phone: [facility] 03-27-2025 10:16-0400 Respiratory rate 16 /min Yumiko Podlogar IRON INSTALLER.SHIRT MARKER Work Phone: [facility] 03-27-2025 10:16-0400 SaO2% (BldA) [Mass fraction] 99 % Yumiko Podlogar IRON INSTALLER.SHIRT MARKER Work Phone: [facility] 03-27-2025 10:16-0400 Systolic blood pressure 134 mm[Hg] Yumiko Podlogar IRON INSTALLER.SHIRT MARKER Work Phone: [facility] 03-20-2025 08:28-0400 Body temperature 98.9 [degF] Dr. Rishi Vasquez DO Work Phone: [facility] 03-20-2025 08:28-0400 Diastolic blood pressure 57 mm[Hg] Dr. Rishi Vasquez DO Work Phone: [facility] 03-20-2025 08:28-0400 Heart rate 52 /min Dr. Rishi Vasquez DO Work Phone: [facility] 03-20-2025 08:28-0400 Respiratory rate 18 /min Dr. Rishi Vasquez DO Work Phone: [facility] 03-20-2025 08:28-0400 SaO2% (BldA) [Mass fraction] 97 % Dr. Rishi Vasquez DO Work Phone: 7(690)959-301642 [place] [address] 03-20-2025 08:28-0400 Systolic blood pressure 142 mm[Hg] Dr. Rishi Vasquez DO Work Phone: 9(155)460-332415 [place] [address] 03-19-2025 10:06-0400 Body height 167.[address] Rishi Vasquez DO Work Phone: 9(959)092-023215 [place] [address] 03-19-2025 10:06-0400 Body mass index (BMI) [Ratio] 26.4 kg/m2 Dr. Rihsi Vasquez DO Work Phone: 2(188)891-044915 [place] [address] 03-19-2025 10:06-0400 Body weight 74.[address] Rishi Vasquez DO Work Phone: 2(666)849-463515 [place] [address] 03-11-2025 15:34-0400 Body temperature 97.9 [degF] Dr. Rishi Vasquez DO Work Phone: 1(986)289-655615 [place] [address] 03-11-2025 15:34-0400 Diastolic blood pressure 47 mm[Hg] Dr. Rishi Vasquez DO Work Phone: 8(954)536-677115 [place] [address] 03-11-2025 15:34-0400 Heart rate 58 /min Dr. Rishi Vasquez DO Work Phone: 6(156)856-277915 [place] [address] 03-11-2025 15:34-0400 Respiratory rate 16 /min Dr. Rishi Vasquez DO Work Phone: 6(630)016-311215 [place] [address] 03-11-2025 15:34-0400 SaO2% (BldA) [Mass fraction] 97 % Dr. Rishi Vasquez DO Work Phone: 0(293)939-546115 [place] [address] 03-11-2025 15:34-0400 Systolic blood pressure 112 mm[Hg] Dr. Rishi Vasquez DO Work Phone: 3(120)092-299015 [place] [address] 03-11-2025 05:37-0400 Body mass index (BMI) [Ratio] 26.6 kg/m2 Dr. Rishi Vasquez DO Work Phone: 3(695)305-031515 [place] [address] 03-11-2025 05:37-0400 Body weight 75.[address] Rishi Vasquez DO Work Phone: [facility] 03-07-2025 17:01-0400 Body temperature 98 [degF] Dr. Rishi Vasquez DO Work Phone: [facility] 03-07-2025 17:01-0400 Diastolic blood pressure 78 mm[Hg] Dr. Rishi Vasquez DO Work Phone: [facility] 03-07-2025 17:01-0400 Heart rate 67 /min Dr. Rishi Vasquez DO Work Phone: 3(158)120-170942 [place] [address] 03-07-2025 17:01-0400 Respiratory rate 14 /min Dr. Rishi Vasquez DO Work Phone: [facility] 03-07-2025 17:01-0400 SaO2% (BldA) [Mass fraction] 99 % Dr. Rishi Vasquez DO Work Phone: [facility] 03-07-2025 17:01-0400 Systolic blood pressure 109 mm[Hg] Dr. Rishi Vasquez DO Work Phone: 5(421)629-249642 [place] [address] 03-07-2025 13:42-0400 Body height 167.[address] Rishi Vasquez DO Work Phone: 1(524)126-764942 [place] [address] 03-07-2025 13:42-0400 Body mass index (BMI) [Ratio] 27.6 kg/m2 Dr. Rishi Vasquez DO Work Phone: [facility] 03-07-2025 13:42-0400 Body weight 77.[address] Rishi Vasquez DO Work Phone: [facility] 12-05-2024 09:39-0500 Diastolic blood pressure 60 mm[Hg] Rishi Vasquez DO Work Phone: [facility] 12-05-2024 09:39-0500 Systolic blood pressure 110 mm[Hg] Rishi Vasquez DO Work Phone: [facility] 12-05-2024 09:03-0500 Body mass index (BMI) [Ratio] 25.62 kg/m2 Rishi Vasquez DO Work Phone: [facility] 12-05-2024 09:03-0500 Body temperature 97 [degF] Rishi Vasquez DO Work Phone: [facility] 12-05-2024 09:03-0500 Body weight 72 kg Rishi Vasquez DO Work Phone: [facility] 12-05-2024 09:03-0500 Heart rate 60 /min Rishi Vasquez DO Work Phone: [facility] 12-05-2024 09:03-0500 Respiratory rate 16 /min Rishi Vasquez DO Work Phone: [facility] 06-04-2024 09:43-0400 Body mass index (BMI) [Ratio] 24.69 kg/m2 Rishi Vasquez DO Work Phone: [facility] 06-04-2024 09:43-0400 Body temperature 96.6 [degF] Rishi Vasquez DO Work Phone: [facility] 06-04-2024 09:43-0400 Body weight 69.4 kg Rishi Vasquez DO Work Phone: [facility] 06-04-2024 09:43-0400 Diastolic blood pressure 70 mm[Hg] Rishi Vasquez DO Work Phone: [facility] 06-04-2024 09:43-0400 Heart rate 64 /min Rishi Vasquez DO Work Phone: [facility] 06-04-2024 09:43-0400 Respiratory rate 16 /min Rishi Vasquez DO Work Phone: [facility] 06-04-2024 09:43-0400 Systolic blood pressure 154 mm[Hg] Rishi Vasquez DO Work Phone: [facility] 02-07-2024 09:19-0400 Body mass index (BMI) [Ratio] 25.8 kg/m2 Dr. Rishi Vasquez Work Phone: [facility] 02-07-2024 09:19-0400 Body weight 72.[address] Rishi Vasquez Work Phone: [facility] 02-07-2024 09:19-0400 Diastolic blood pressure 71 mm[Hg] Dr. Rishi Vasquez Work Phone: [facility] 02-07-2024 09:19-0400 Heart rate 47 /min Dr. Rishi Vasquez Work Phone: 5(241)704-765142 [place] [address] 02-07-2024 09:19-0400 Respiratory rate 18 /min Dr. Rishi Vasquez Work Phone: 9(357)897-664942 [place] [address] 02-07-2024 09:19-0400 Systolic blood pressure 142 mm[Hg] Dr. Rishi Vasquez Work Phone: 9(891)442-412615 [place] [address] 01-15-2024 10:00-0500 Diastolic blood pressure 71 mm[Hg] Anselmo Golias PT Work Phone: [facility] 01-15-2024 10:00-0500 Heart rate 63 /min Anselmo Golias PT Work Phone: [facility] 01-15-2024 10:00-0500 Systolic blood pressure 166 mm[Hg] Anselmo Golias PT Work Phone: [facility] 07-03-2023 09:06-0400 Body height 167.[address] Rishi Vasquez Work Phone: [facility] 07-03-2023 09:06-0400 Body mass index (BMI) [Ratio] 26.1 kg/m2 Dr. Rishi Vasquez Work Phone: [facility] 07-03-2023 09:06-0400 Body weight 73.[address] Rishi Vasquez Work Phone: [facility] 07-03-2023 09:06-0400 Diastolic blood pressure 62 mm[Hg] Dr. Rishi Vasquez Work Phone: [facility] 07-03-2023 09:06-0400 Heart rate 55 /min Dr. Rishi Vasquez Work Phone: [facility] 07-03-2023 09:06-0400 Respiratory rate 17 /min Dr. Rishi Vasquez Work Phone: [facility] 07-03-2023 09:06-0400 SaO2% (BldA) [Mass fraction] 99 % Dr. Rishi Vasquez Work Phone: [facility] 07-03-2023 09:06-0400 Systolic blood pressure 145 mm[Hg] Dr. Rishi Vasquez Work Phone: [facility] 06-04-2023 11:25-0400 Body temperature 97.3 [degF] Rishi Vasquez DO Work Phone: [facility] 06-04-2023 11:25-0400 Body weight 72.58 kg Rishi Vasquez DO Work Phone: 4(644)725-083351 [place] [address] 06-04-2023 11:25-0400 Diastolic blood pressure 70 mm[Hg] Rishi Vasquez DO Work Phone: [facility] 06-04-2023 11:25-0400 Heart rate 60 /min Rishi Vasquez DO Work Phone: [facility] 06-04-2023 11:25-0400 Respiratory rate 16 /min Rishi Vasquez DO Work Phone: [facility] 06-04-2023 11:25-0400 Systolic blood pressure 120 mm[Hg] Rishi Vasquez DO Work Phone: [facility] 04-20-2023 08:57-0400 Body height 167.[address] Rishi Vasquez Work Phone: [facility] 04-20-2023 08:57-0400 Heart rate 56 /min Dr. Rishi Vasquez Work Phone: [facility] 04-20-2023 08:51-0400 Body mass index (BMI) [Ratio] 25.9 kg/m2 Dr. Rishi Vasquez Work Phone: 3(791)636-849142 [place] [address] 04-20-2023 08:51-0400 Body weight 73.[address] Rishi Vasquez Work Phone: [facility] 04-20-2023 08:51-0400 Diastolic blood pressure 72 mm[Hg] Dr. Rishi Vasquez Work Phone: [facility] 04-20-2023 08:51-0400 Respiratory rate 18 /min Dr. Rishi Vasquez Work Phone: [facility] 04-20-2023 08:51-0400 SaO2% (BldA) [Mass fraction] 99 % Dr. Rishi Vasquez Work Phone: [facility] 04-20-2023 08:51-0400 Systolic blood pressure 147 mm[Hg] Dr. Rishi Vasquez Work Phone: [facility] 12-05-2022 09:40-0500 Body temperature 97.3 [degF] Rishi Vasquez DO Work Phone: [facility] 12-05-2022 09:40-0500 Body weight 72.58 kg Rishi Vasquez DO Work Phone: [facility] 12-05-2022 09:40-0500 Diastolic blood pressure 82 mm[Hg] Rishi Vasquez DO Work Phone: [facility] 12-05-2022 09:40-0500 Heart rate 64 /min Rishi Vasquez DO Work Phone: [facility] 12-05-2022 09:40-0500 Respiratory rate 16 /min Rishi Vasquez DO Work Phone: [facility] 12-05-2022 09:40-0500 Systolic blood pressure 126 mm[Hg] Rishi Vasquez DO Work Phone: [facility] 09-23-2022 09:01-0400 Body temperature 97.5 [degF] Camille Mitchell PA-C Work Phone: [facility] 09-23-2022 09:01-0400 Body weight 74.93 kg Camille Mitchell PA-C Work Phone: [facility] 09-23-2022 09:01-0400 Diastolic blood pressure 72 mm[Hg] Camille Athy PA-C Work Phone: [facility] 09-23-2022 09:01-0400 Heart rate 62 /min Camille Athy PA-C Work Phone: [facility] 09-23-2022 09:01-0400 Respiratory rate 21 /min Camille Athy PA-C Work Phone: [facility] 09-23-2022 09:01-0400 SaO2% (BldA) [Mass fraction] 99 % Camille Athy PA-C Work Phone: [facility] 09-23-2022 09:01-0400 Systolic blood pressure 160 mm[Hg] Camille Athy PA-C Work Phone: [facility] 08-15-2022 12:13-0400 Body temperature 97.81 [degF] Camille Athy PA-C Work Phone: [facility] 08-15-2022 12:13-0400 Body weight 75.03 kg Camille Athy PA-C Work Phone: [facility] 08-15-2022 12:13-0400 Diastolic blood pressure 86 mm[Hg] Camille Athy PA-C Work Phone: [facility] 08-15-2022 12:13-0400 Heart rate 49 /min Camille Athy PA-C Work Phone: [facility] 08-15-2022 12:13-0400 Respiratory rate 18 /min Camille Athy PA-C Work Phone: [facility] 08-15-2022 12:13-0400 SaO2% (BldA) [Mass fraction] 98 % Camille Athy PA-C Work Phone: [facility] 08-15-2022 12:13-0400 Systolic blood pressure 162 mm[Hg] Camille Athy PA-C Work Phone: [facility] 08-08-2022 09:30-0400 Body height 167.[address] Rishi Vasquez Work Phone: [facility] Work Phone: 08-08-2022 09:30-0400 Body mass index (BMI) [Ratio] 26.6 kg/m2 Dr. Rishi Vasquez Work Phone: [facility] Work Phone: 08-08-2022 09:30-0400 Body weight 74.[address] Rishi Vasquez Work Phone: [facility] Work Phone: 08-08-2022 09:30-0400 Diastolic blood pressure 51 mm[Hg] Dr. Rishi Vasquez Work Phone: [facility] Work Phone: 08-08-2022 09:30-0400 Heart rate 46 /min Dr. Rishi Vasquez Work Phone: [facility] Work Phone: 08-08-2022 09:30-0400 Respiratory rate 16 /min Dr. Rishi Vasquez Work Phone: [facility] Work Phone: 08-08-2022 09:30-0400 Systolic blood pressure 126 mm[Hg] Dr. Rishi Vasquez Work Phone: [facility] Work Phone: 06-29-2022 09:35-0400 Diastolic blood pressure 71 mm[Hg] Dr. Rishi Vasquez Work Phone: [facility] Work Phone: 06-29-2022 09:35-0400 Respiratory rate 18 /min Dr. Rishi Vasquez Work Phone: [facility] Work Phone: 06-29-2022 09:35-0400 Systolic blood pressure 164 mm[Hg] Dr. Rishi Vasquez Work Phone: [facility] Work Phone: 06-17-2022 08:24-0400 Body temperature 97.9 [degF] Kena Older IRON INSTALLER.SHIRT MARKER Work Phone: [facility] 06-17-2022 08:24-0400 Body weight 76.39 kg Kena Older IRON INSTALLER.SHIRT MARKER Work Phone: [facility] 06-17-2022 08:24-0400 Diastolic blood pressure 80 mm[Hg] Kena Older IRON INSTALLER.SHIRT MARKER Work Phone: [facility] 06-17-2022 08:24-0400 Heart rate 59 /min Kena Older IRON INSTALLER.SHIRT MARKER Work Phone: [facility] 06-17-2022 08:24-0400 Respiratory rate 20 /min Kena Older IRON INSTALLER.SHIRT MARKER Work Phone: [facility] 06-17-2022 08:24-0400 SaO2% (BldA) [Mass fraction] 97 % Kena Older IRON INSTALLER.SHIRT MARKER Work Phone: [facility] 06-17-2022 08:24-0400 Systolic blood pressure 158 mm[Hg] Kena Older IRON INSTALLER.SHIRT MARKER Work Phone: [facility] 05-31-2022 10:190400 Body temperature 98.29 [degF] Rishi Vasquez DO Work Phone: [facility] 05-31-2022 10:190400 Body weight 75.3 kg Rishi Vasquez DO Work Phone: [facility] 05-31-2022 10:19-0400 Diastolic blood pressure 70 mm[Hg] Rishi Vasquez DO Work Phone: [facility] 05-31-2022 10:19-0400 Heart rate 56 /min Rishi Vasquez DO Work Phone: [facility] 05-31-2022 10:19-0400 Systolic blood pressure 116 mm[Hg] Rishi Vasquez DO Work Phone: [facility] 02-07-2022 08:55-0400 Body height 167.[address] Rishi Vasquez Work Phone: [facility] Work Phone: 02-07-2022 08:55-0400 Body mass index (BMI) [Ratio] 26.9 kg/m2 Dr. Rishi Vasquez Work Phone: [facility] Work Phone: 02-07-2022 08:55-0400 Body weight 75.[address] Rishi Vasquez Work Phone: [facility] Work Phone: 02-07-2022 08:55-0400 Diastolic blood pressure 68 mm[Hg] Dr. Rishi Vasquez Work Phone: [facility] Work Phone: 02-07-2022 08:55-0400 Heart rate 63 /min Dr. Rishi Vasquez Work Phone: [facility] Work Phone: 02-07-2022 08:55-0400 Respiratory rate 18 /min Dr. Rishi Vasquez Work Phone: [facility] Work Phone: 02-07-2022 08:55-0400 SaO2% (BldA) [Mass fraction] 100 % Dr. Rishi Vasquez Work Phone: [facility] Work Phone: 02-07-2022 08:55-0400 Systolic blood pressure 152 mm[Hg] Dr. Rishi Vasquez Work Phone: [facility] Work Phone: 01-20-2022 09:42-0500 Body temperature 97.6 [degF] Dr. Rishi Vasquez Work Phone: [facility] Work Phone: 01-20-2022 09:42-0500 Diastolic blood pressure 56 mm[Hg] Dr. Rishi Vasquez Work Phone: [facility] Work Phone: 01-20-2022 09:42-0500 Heart rate 75 /min Dr. Rishi Vasquez Work Phone: [facility] Work Phone: 01-20-2022 09:42-0500 Respiratory rate 16 /min Dr. Rishi Vasquez Work Phone: [facility] Work Phone: 01-20-2022 09:42-0500 SaO2% (BldA) [Mass fraction] 98 % Dr. Rishi Vasquez Work Phone: [facility] Work Phone: 01-20-2022 09:42-0500 Systolic blood pressure 123 mm[Hg] Dr. Rishi Vasquez Work Phone: [facility] Work Phone: 12-29-2021 08:28-0500 Body mass index (BMI) [Ratio] 27.1 kg/m2 Dr. Rishi Vasquez Work Phone: [facility] Work Phone: 12-29-2021 08:28-0500 Body temperature 97.8 [degF] Dr. Rishi Vasquez Work Phone: [facility] Work Phone: 12-29-2021 08:28-0500 Body weight 76.[address] Rishi Vasquez Work Phone: [facility] Work Phone: 12-29-2021 08:28-0500 Diastolic blood pressure 64 mm[Hg] Dr. Rishi Vasquez Work Phone: [facility] Work Phone: 12-29-2021 08:28-0500 Heart rate 60 /min Dr. Rishi Vasquez Work Phone: [facility] Work Phone: 12-29-2021 08:28-0500 Respiratory rate 17 /min Dr. Rishi Vasquez Work Phone: [facility] Work Phone: 12-29-2021 08:28-0500 SaO2% (BldA) [Mass fraction] 97 % Dr. Rishi Vasquez Work Phone: [facility] Work Phone: 12-29-2021 08:28-0500 Systolic blood pressure 182 mm[Hg] Dr. Rishi Vasquez Work Phone: [facility] Work Phone: 10-18-2021 23:19-0500 Body mass index (BMI) [Ratio] 26.9 kg/m2 Dr. Rishi Vasquez Work Phone: [facility] Work Phone: 08-30-2017 15:31-0400 BMI (Body Mass Index) 29.78 kg/m2 Kw[facility] Moscos[facility] Work Phone: 08-30-2017 15:31-0400 Body Temperature 98.1 [degF] Kwaku Moscoso MD [facility] Work Phone: 08-30-2017 15:31-0400 BP Diastolic 73 mm[Hg] Kwaku Moscoso MD [facility] Work Phone: 08-30-2017 15:31-0400 BP Systolic 156 mm[Hg] Kwaku Moscoso MD [facility] Work Phone: 08-30-2017 15:31-0400 Height 165.1 cm Kwaku Moscoso MD [facility] Work Phone: 08-30-2017 15:31-0400 Pulse (Heart Rate) 54 /min Kwaku Moscoso MD [facility] Work Phone: 08-30-2017 15:31-0400 Respiratory Rate 18 /min Kwaku Moscoso MD [facility] Work Phone: 08-30-2017 15:31-0400 Weight 81.19 kg Kwaku Moscoso MD [facility] Work Phone: 06-11-2017 10:53-0400 BMI (Body Mass Index) 29.7 kg/m2 [facility] Work Phone: 06-11-2017 10:53-0400 BP Diastolic 60 mm[Hg] [facility] Work Phone: 06-11-2017 10:53-0400 BP Systolic 142 mm[Hg] [facility] Work Phone: 06-11-2017 10:53-0400 Height 167.64 cm [facility]e [facility] Work Phone: 06-11-2017 10:53-0400 Pulse (Heart Rate) 54 /min [facility] Work Phone: 06-11-2017 10:53-0400 Respiratory Rate 18 /min [facility] Work Phone: 06-11-2017 10:53-0400 Weight 83.46 kg [facility] Work Phone: 05-02-2017 12:55-0400 BMI (Body Mass Index) 29.7 kg/m2 Marly Signs MD [facility] Work Phone: 05-02-2017 [...] L[facility] Work Phone: 04-23-2017 11:140400 Body Temperature 98.7 [degF] Shaina Serna [facility] Work Phone: 04-23-2017 11:14-0400 Body weight 84.55 kg Shaina Serna [facility] Work Phone: 04-23-2017 11:14-0400 BP Diastolic 72 mm[Hg] Shaina Serna [facility]PN [facility] Work Phone: 04-23-2017 11:14-0400 BP Systolic 125 mm[Hg] Shaina Serna [facility] Work Phone: 04-23-2017 11:14-0400 Height 167.64 cm Shaina Serna [facility] Work Phone: 04-23-2017 11:14-0400 Pulse (Heart Rate) 60 /min Shaina Serna [facility] Work Phone: 04-23-2017 11:14-0400 Pulse Oximetry 98 % Shaina Serna [facility] Work Phone: 04-23-2017 11:14-0400 Respiratory Rate 18 /min Shaina Serna [facility] Work Phone: 04-23-2017 11:14-0400 Weight 84.55 kg Marly Patino MD [facility] Work Phone: 02-06-2017 12:57-0400 Body Temperature 98.4 [degF] Shaina Serna [facility] Work Phone: 02-06-2017 12:57-0400 Body weight 80.92 kg Shaina Serna LPN [facility] Work Phone: 02-06-2017 12:57-0400 BP Diastolic 76 mm[Hg] Shaina Serna LPN [facility] Work Phone: 02-06-2017 12:57-0400 BP Systolic 140 mm[Hg] [facility] Work Phone: 02-06-2017 12:57-0400 BSA (Body Surface Area) 1.91 m2 Shaina Kareem STEPHENS [facility] Work Phone: 02-06-2017 12:57-0400 Height 167.64 cm Shaina Kareem STEPHENS [facility] Work Phone: 02-06-2017 12:57-0400 Weight 80.92 kg Marly Patino MD [facility] Work Phone: 12-05-2016 12:56-0500 Pulse Oximetry 98 % Shaina Kareem BURR SANDER [facility] Work Phone: 11-17-2016 07:54-0500 Body surface area Derived from formula 45.87 mL/min Shaina Kareem STEPHENS [facility] Work Phone: 05-25-2015 14:56-0400 Heart rate 55 /min [facility] Work Phone: 01-12-2014 13:16-0500 Heart rate 406 ms Shaina K[facility] Work Phone: Encounters Encounter Date Encounter Type Care Provider Facility Start: 06-30-2025 ambulatory [facility] Facility:[facility] Start: 05-26-2025 ambulatory [facility] Facility:[facility] Start: 05-21-2025 Dr. Michaela Joshua DO -[facility] Work Phone: Start: 05-20-2025 Dr. Michaela Joshua DO -[facility] Work Phone: Start: 05-19-2025 Dr. Michaela Joshua DO -[facility] Work Phone: Start: 05-19-2025 Dr. Jacinto Tamez DO -[facility] Start: 05-19-2025 ambulatory Rishi Dewey y:[facility] Start: 05-18-2025 Encounter for other preprocedural examination Russell Clement [facility] Start: 05-18-2025 Dr. Russell Clement MD -[facility] Start: 05-18-2025 Dr. Jacinto Tamez DO -[facility] Start: 05-18-2025 ambulatory Remus Ungur Facility:[facility] Start: 05-18-2025 End: 05-21-2025 Evaluation and management of inpatient Dr. Rishi Vasquez DO Work Phone: -Medical Surgical 3 Start: 05-18-2025 End: 05-21-2025 Dr. Maddie Merchant MD -[facility] 3 Work Phone: Start: 05-13-2025 End: 05-13-2025 Abena VYAS -[facility] Work Phone: Start: 05-13-2025 End: 05-13-[address] Rishi Vasquez DO Work Phone: [facility] Work Phone: Start: 05-12-2025 Encounter for preprocedural cardiovascular examination Jarret [facility] Start: 05-11-2025 ambulatory Jarret Quiles Facility:[facility] Start: 05-11-2025 Non-patient / Non-visit Dr. Jarret walden MD -[facility] Start: 05-11-2025 Dr. Jarret Quiles MD -[facility] Start: 05-08-2025 End: 05-08-[address] Rishi Vasquez DO Work Phone: [facility] Work Phone: Start: 05-08-2025 End: 05-08-[address] Jarret Quiles MD -Cardiovascular Services Work Phone: Start: 05-08-2025 End: 05-08-2025 Dr. Jarret Quiles MD -Cardiovascular Services Work Phone: Start: 05-07-2025 End: 05-07-2025 Patient encounter procedure Rick Bhumi Rubio BARAJAS-Andrés -[facility] Work Phone: Start: 05-07-2025 End: 05-07-2025 Patient encounter status Rick Tripathi Rubio [employer] [facility] Comment on above: Vascular surgery in May Start: 05-07-2025 End: 05-07-2025 Rick Bergeron NP-C -[facility] Work Phone: Start: 05-07-2025 End: 05-08-[address] Rishi Vasquez DO Work Phone: [facility] Work Phone: Start: 05-06-2025 End: 05-07-2025 Telephone encounter Rishi Vasquez DO Work Phone: [facility] Comment on above: Medication Problem Start: 04-30-2025 End: 04-30-2025 Office outpatient visit 25 minutes Ld Escobedo IRON INSTALLER.SHIRT MARKER Work Phone: [facility] Comment on above: Diabetes mellitus ty pe 2 with peripheral artery disease (HCC) (Primary Dx); Hyperglycemia Start: 04-30-2025 End: 04-30-2025 ambulatory LD ESCOBEDO Facility:[facility] Start: 04-27-2025 End: 04-27-[address] Rishi Vasquez DO Work Phone: [facility] Work Phone: Start: 04-27-2025 End: 04-27-[address] Ciaran Renee MD -Ultrasound [facility] Work Phone: Start: 04-27-2025 End: 04-27-2025 Dr. Ciaran Renee MD -Ultrasound [facility] Work Phone: Start: 04-27-2025 End: 04-27-2025 ambulatory Ciaran Renee Facility:[facility] Start: 04-23-2025 End: 05-18-[address] Rishi Vasquez DO Work Phone: -Cardiac Rehab Start: 04-23-[address] Rishi ponce DO -Cardiac Rehab Work Phone: Start: 04-23-2025 End: 05-18-2025 Dr. Rishi Vasquez DO -Cardiac Rehab Work Phone: Start: 04-21-[address] Rishi ponce DO -Cardiac Rehab Work Phone: Start: 04-20-2025 Non-patient / Non-visit Dr. Russell dobbs MD -[facility] Start: 04-20-2025 End: 04-20-[address] Rishi Vasquez DO Work Phone: [facility] Work Phone: Start: 04-20-2025 End: 04-20-2025 Patient encounter procedure Abena Fiore MS -Cardiovascular Services Work Phone: Start: 04-20-2025 End: 04-20-2025 Dr. Russell Clement MD -[facility] Start: 04-20-2025 End: 04-20-2025 ambulatory Abena Fiore Facility:[facility] Start: 04-16-2025 End: 04-16-2025 Telephone encounter Rishi Vasquez DO Work Phone: [facility] Comment on above: [facility] Plan of Care Start: 04-15-2025 ambulatory Russell Clement Facility:[facility] Start: 04-15-2025 Non-patient / Non-visit Dr. Russell dobbs MD -[facility] Start: 04-15-2025 Dr. Russell Clement MD -[facility] Start: 04-15-2025 End: 04-15-2025 Telephone encounter Ld Escobedo APRN.CNP Work Phone: [facility] Start: 04-15-2025 End: 04-15-2025 Admission to same day surgery center Dr. Russell Clement MD -Senior Accounting Manager/Special Procedures Work Phone: Start: 04-15-2025 End: 04-15-2025 Dr. Russell Clement MD -Senior Accounting Manager/Special Procedures Work Phone: Start: 04-15-2025 End: 04-15-[address] Rishi Vasquez DO Work Phone: [facility] Work Phone: Start: 04-07-2025 End: 04-21-2025 ambulatory Rishi Vasquez DO Work Phone: [facility] Comment on above: Diabetes Start: 04-03-2025 End: 04-03-2025 Patient encounter procedure Abena VYAS -[facility] Work Phone: Start: 04-03-2025 End: 04-03-2025 Abena VYAS -[facility] Work Phone: Start: 04-03-2025 End: 04-03-[address] Rishi Vasquez DO Work Phone: [facility] Work Phone: Start: 03-27-2025 End: 03-27-2025 Patient encounter procedure Yumiko Whitehead APRN.CNP Work Phone: [facility] Comment on above: Hospital discharge f ollow-up (Primary Dx); Diabetic foot ulcer associated with type 2 diabetes mellitus, unspecified laterality, unspecified part of foot, unspecified ulcer stage (HCC); Abnormality of gait; Falling episodes Start: 03-27-2025 End: 03-27-2025 ambulatory YUMIKO PODLOGGABRIELA Facility:[facility] Start: 03-26-2025 End: 03-26-2025 Telephone encounter Rishi Vasquez DO Work Phone: [facility] Comment on above: Patient Update Start: 03-24-2025 End: 03-25-2025 Telephone encounter Rishi Vasquez DO Work Phone: [facility] Comment on above: [facility] PT POC Start: 03-23-2025 End: 03-24-2025 Telephone encounter Rishi Vasquez DO Work Phone: [facility] Comment on above: HH Nursing POC Start: 03-20-2025 End: 03-23-2025 Telephone encounter Rishi Vasquez DO Work Phone: [facility] Comment on above: Orders Start: 03-19-2025 End: 03-19-[address] Phong Solomon MD -Cat Scan [facility] Work Phone: Start: 03-19-2025 End: 04-18-[address] Rishi Vasquez DO -Cardiac Rehab Work Phone: Start: 03-19-[address] Rishi ponce DO -Cardiac Rehab Work Phone: Start: 03-19-2025 End: 04-18-2025 Dr. Rishi Vasquez DO -Cardiac Rehab Work Phone: Start: 03-19-2025 End: 04-18-[address] Rishi Vasquez DO Work Phone: [facility] Work Phone: Start: 03-19-2025 End: 03-19-2025 ambulatory Rishi Vasquez Facility:[facility] Start: 03-13-2025 Non-patient / Non-visit Abena Fiore [facility] Start: 03-13-2025 Abena Fiore [facility] Start: 03-11-2025 End: 03-20-2025 Dr. Phong Solomon MD -Transitional Care Unit Start: 03-11-2025 ambulatory Kwaku Muhammad ty:[facility] Start: 03-11-2025 End: 03-20-2025 Evaluation and management of inpatient Dr. Phong Solomon MD -Transitional Care Unit Start: 03-11-2025 Non-patient / Non-visit Dr. Broderick Dempsey MD -[facility] Work Phone: Start: 03-11-2025 Dr. Broderick Dempsey MD -[facility] Inpatient Physicians Work Phone: Start: 03-10-2025 Non-patient / Non-visit Dr. Broderick Dempsey MD -[facility] Work Phone: Start: 03-10-2025 Dr. Broderick Dempsey MD -[facility] Inpatient Physicians Work Phone: Start: 03-10-2025 Non-patient / Non-visit Abena Fiore [facility] Start: 03-10-2025 Abena Fiore [facility] Start: 03-09-2025 Non-patient / Non-visit Dr. Russell dobbs MD -[facility] Start: 03-09-2025 Dr. Russell Clement MD [facility] Start: 03-08-2025 Non-patient / Non-visit Dr. Broderick Dempsey MD -[facility] Work Phone: Start: 03-08-2025 Dr. Broderick Dempsey MD -[facility] Inpatient Physicians Work Phone: Start: 03-07-2025 ambulatory Maddie Merchant Facility :[facility] Start: 03-07-2025 End: 03-11-2025 Evaluation and management of inpatient Dr. Maddie Merchant MD -Medical Surgical 3 Work Phone: Start: 03-07-2025 End: 03-11-2025 Dr. Broderick Dempsey MD -Medical Surgical 3 Work Phone: Start: 02-26-2025 End: 02-26-[address] Rishi Vasquez DO Work Phone: [facility] Work Phone: Start: 02-26-2025 End: 02-26-[address] Patel Irene DPM -Laboratory, Specimen Work Phone: Start: 02-26-2025 End: 02-26-2025 Dr. Patel Irene DPM -Laboratory Specim en Work Phone: Start: 02-26-2025 End: 02-26-2025 ambulatory Patel Irene Facility:[facility] Start: 02-17-2025 End: 03-18-[address] Rishi Vasquez DO -Cardiac Rehab Work Phone: Start: 02-17-[address] Rishi ponce DO -Cardiac Rehab Work Phone: Start: 02-17-2025 End: 03-18-2025 Dr. Rishi Vasquez DO -Cardiac Rehab Work Phone: Start: 02-17-2025 End: 03-18-2025 ambulatory Rishi Vasquez Facility:[facility] Start: 02-16-2025 End: 02-16-[address] Rishi Vasquez DO Work Phone: [facility] Work Phone: Start: 02-16-2025 End: 02-16-[address] Rishi Vasquez DO -Laboratory, Specimen Work Phone: Start: 02-16-2025 End: 02-16-2025 Ciaran Berry DPLebron -Laboratory Specime n Work Phone: Start: 02-16-2025 End: 02-16-2025 ambulatory Ciaran Berry Facility:[facility] Start: 02-05-2025 End: 02-16-[address] Rishi Vasquez DO Work Phone: [facility] Work Phone: Start: 02-05-2025 End: 02-16-[address] Rishi Vasquez DO -Cardiac Rehab Work Phone: Start: 02-05-2025 End: 02-16-2025 Dr. Rishi Vasquez DO -Cardiac Rehab Work Phone: Start: 01-06-2025 ambulatory Brandon Membreno Facility :[facility] Start: 01-06-2025 Non-patient / Non-visit Dr. Russell dobbs MD -[facility] Start: 01-06-2025 End: 01-06-[address] Brandon Membreno DPM -Cardiovascular Services Work Phone: Start: 01-06-2025 End: 01-06-2025 ambulatory Brandon Membreno Facility:[facility] Start: 12-30-2024 End: 12-30-[address] Patel Irene DPM -Laboratory, Specimen Work Phone: Start: 12-30-2024 End: 12-30-2024 ambulatory Rishi Vasquez Facility:[facility] Start: 12-25-2024 End: 12-26-2024 Refill Rishi Vasquez DO Work Phone: [facility] Comment on above: Refill Request Start: 12-23-2024 End: 01-16-[address] Rishi Vasquez DO -Cardiac Rehab Work Phone: Start: 12-23-2024 End: 01-16-2025 ambulatory Rishi Vasquez Facility:[facility] Start: 12-18-2024 End: 12-19-2024 ambulatory Rishi Vasquez Facility:[facility] Start: 12-18-2024 End: 12-19-[address] Rishi Vasquez DO -Cardiac Rehab Work Phone: Start: 12-17-2024 End: 12-17-[address] Brandon Membreno DPM -Laboratory, Specimen Work Phone: Start: 12-17-2024 End: 12-17-2024 ambulatory Brandon Membreno Facility:[facility] Start: 12-05-2024 End: 12-05-2024 Patient encounter procedure Rishi Vasquez DO Work Phone: [facility] Comment on above: Diabetes mellitus ty pe [...] Start: 12-05-2024 End: 12-05-2024 ambulatory RISHI VASQUEZ Facility:[facility] Start: 12-01-2024 End: 12-01-2024 ambulatory RISHI L VASQUEZ Facility:[facility] Start: 11-29-2024 ambulatory Rishi Del Rosarioon Facilit y:[facility] Start: 11-18-2024 End: 11-18-2024 ambulatory Rishi Vasquez Facility:[facility] Start: 11-18-2024 End: 11-18-[address] Rishi Vasquez DO -Cardiac Rehab Work Phone: Start: 10-14-2024 End: 10-18-2024 ambulatory Rishi Taterison Facility:[facility] Start: 09-18-2024 End: 09-18-2024 ambulatory Rishi Vasquez Facility:[facility] Start: 09-10-2024 End: 09-15-2024 Telephone encounter Rishi Del Rosarioon DO Work Phone: [facility] Comment on above: Patient Question Start: 09-05-2024 End: 09-05-2024 Patient encounter procedure [facility] Work Phone: [facility] Start: 09-05-2024 End: 09-05-2024 ambulatory [facility]ization [facility] Nurse [facility] Work Phone: [facility] Start: 08-18-2024 End: 08-19-2024 Telephone encounter Rishi Taterison DO Work Phone: [facility] Comment on above: Patient Question (Fi sh oil - [place] 3) Start: 08-16-2024 End: 08-18-2024 ambulatory Rishi L Vasquez DO Work Phone: [facility] Comment on above: OMEGA 3 FROM FISH OI L Start: 08-14-2024 End: 08-18-2024 ambulatory Rishi Vasquez Facility:[facility] Start: 08-08-2024 End: 08-12-2024 Telephone encounter Rishi L Vasquez DO Work Phone: [facility] Comment on above: Patient Update Start: 08-01-2024 End: 08-01-2024 ambulatory Rishi Vasquez Facility:[facility] Start: 07-17-2024 End: 07-19-2024 ambulatory Rishi Vasquez Facility:[facility] Start: 06-19-2024 End: 06-19-2024 ambulatory Curtishazel Franco Facility:[facility] Start: 06-17-2024 End: 06-18-2024 ambulatory Rishi Vasquez Facility:[facility] Start: 06-13-2024 Telephone encounter Rishi Lawrence Marino julian DO Work Phone: [facility] Start: 06-10-2024 ambulatory No Pcp IRON INSTALLER [facility] Start: 06-10-2024 Patient encounter procedure No Pcp IRON INSTALLER [facility] Start: 06-04-2024 Documentation procedure Mammog rain Coordinator [facility] Start: 06-04-2024 Letter encounter Mammography Coordinator [facility] Start: 06-04-2024 Telephone encounter Rishi julian DO Work Phone: [facility] Comment on above: Results Start: 06-04-2024 End: 06-04-2024 ambulatory RISHI VASQUEZ Facility:[facility] Start: 06-04-2024 End: 06-04-2024 Patient encounter procedure Rishi Vasquez DO Work Phone: [facility] Comment on above: Chronic midline low [...] Start: 06-03-2024 End: 06-03-2024 ambulatory RISHI VASQUEZ Facility:[facility] Start: 06-03-2024 End: 06-03-2024 Subsequent hospital visit by physician [facility] Comment on above: Encounter for screen ing mammogram for malignant neoplasm of breast [Z12.31] Start: 05-30-2024 End: 05-30-2024 ambulatory CLARY ANDRES Facility:[facility] Start: 05-19-2024 Telephone encounter Rishi julian DO Work Phone: [facility] Comment on above: Orders Start: 05-18-2024 ambulatory Rishi Wright son DO Work Phone: [facility] Comment on above: Blood work Start: 03-22-2024 Refill Rishi Wright son DO Work Phone: [facility] Comment on above: Refill Request Start: 03-20-2024 End: 03-20-2024 ambulatory Anselmo Marr PT Work Phone: [facility] Comment on above: 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 Rishi Vasquez Work Phone: [facility] Work Phone: Start: 03-18-2024 End: 03-18-[address] Rishi Vasquez Work Phone: [facility]-Cardiac Rehab Work Phone: Start: 03-13-[address] Jim Vasquez Work Phone: [facility]-Cardiac Rehab Work Phone: Start: 03-11-2024 Non-patient / Non-visit Dr. Marcie Vasquez Work Phone: [facility] Start: 03-11-2024 End: 03-11-[address] Rishi Vasquez Work Phone: [facility] Work Phone: Start: 03-11-2024 End: 03-11-[address] Rishi Vasquez Work Phone: 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 Rishi Vasquez Work Phone: [facility] Work Phone: Start: 02-14-2024 End: 02-17-[address] Rishi Vasquez Work Phone: [facility]-Cardiac Rehab Work Phone: Start: 02-07-2024 End: 02-07-[address] 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 Work Phone: Start: 01-17-2024 End: 01-17-[address] [facility]-Cardiac Rehab Work Phone: Start: 01-15-2024 End: 01-15-2024 ambulatory Anselmo Marr PT Work Phone: [facility] Comment on above: Chronic midline low back pain without sciatica Start: 01-14-2024 ambulatory Rishi contreras DO Work Phone: [facility] Start: 01-14-2024 Patient encounter procedure Rishi Vasquez DO Work Phone: [facility] Comment on above: APPOINTMENT WITH GEN PEPPER SURGEON Start: 01-10-2024 Telephone encounter Rishi Pichardo eliel DO Work Phone: [facility] Comment on above: Results Start: 12-27-2023 ambulatory Rishi ocntreras DO Work Phone: [facility] Comment on above: MEDICATION QUESTION Start: 12-27-2023 Telephone encounter Rishi julian DO Work Phone: [facility] Comment on above: Patient Update Start: 12-20-2023 End: 12-20-2023 Subsequent hospital visit by physician [facility] Work Phone: Radiology Comment on above: Multiple thyroid nod ules [E04.2] Start: 12-18-2023 End: 12-19-2023 Discharged [address] [facility]-Cardiac Rehab Work Phone: Start: 12-10-2023 End: 12-10-2023 Subsequent hospital visit by physician [facility] Work Phone: Radiology Comment on above: Chronic midline low back pain without sciatica [M54.50, G89.29] Start: 11-15-2023 End: 11-18-[address] [facility] Work Phone: Start: 11-15-2023 End: 11-18-2023 Discharged [address] [facility]-Cardiac Rehab Work Phone: Start: 10-18-2023 End: 10-18-[address] Rishi Vasquez Work Phone: [facility] Work Phone: Start: 10-18-2023 End: 10-18-[address] Rishi Vasquez Work Phone: [facility]-Cardiac Rehab Work Phone: Start: 10-03-2023 Refill Rishi contreras DO Work Phone: [facility] Comment on above: Refill Request Start: 09-18-2023 End: 09-18-[address] Rishi Vasquez Work Phone: [facility] Work Phone: Start: 09-18-2023 End: 09-18-[address] Rishi Vasquez Work Phone: [facility]-Cardiac Rehab Work Phone: Start: 09-13-[address] Jim Vasquez Work Phone: [facility]-Cardiac Rehab Work Phone: Start: 08-31-2023 End: 08-31-2023 ambulatory [facility]ization [facility] Nurse [facility] Work Phone: [facility] Start: 08-18-2023 Telephone encounter Rishi julian DO Work Phone: [facility] Comment on above: Results Start: 08-16-2023 End: 08-16-[address] Rishi Vasquez Work Phone: [facility]-Laboratory Work Phone: Start: 08-16-2023 End: 08-18-[address] Rishi Vasquez Work Phone: [facility] Work Phone: Start: 08-16-2023 End: 08-18-[address] Rishi Vasquez Work Phone: [facility]-Cardiac Rehab Work Phone: Start: 07-31-2023 Telephone encounter Rishi julian DO Work Phone: [facility] Comment on above: Results Start: 07-31-[address] Jim Vasquez Work Phone: [facility]-Cardiac Rehab Work Phone: Start: 07-26-2023 End: 07-26-[address] Rishi Vasquez Work Phone: [facility] Work Phone: Start: 07-26-2023 End: 07-26-[address] Rishi Vasquez Work Phone: [facility]-Laboratory, Specimen Work Phone: Start: 07-19-2023 End: 07-19-[address] Rishi Vasquez Work Phone: [facility] Work Phone: Start: 07-19-2023 End: 07-19-[address] Rishi Vasquez Work Phone: [facility]-Cardiac Rehab Work Phone: Start: 07-10-2023 Telephone encounter Danyelle allen PA-C Work Phone: [facility] Comment on above: Results Start: 07-10-2023 End: 07-10-2023 Subsequent hospital visit by physician [facility] Mammogram Comment on above: Abnormal mammogram [ R92.8] Start: 07-03-2023 End: 07-03-[address] Rishi Vasquez Work Phone: [facility] Work Phone: Start: 06-14-2023 End: 06-18-[address] Rishi Vasquez Work Phone: [facility] Work Phone: Start: 06-14-2023 End: 06-18-[address] Rishi Vasquez Work Phone: [facility] Work Phone: Start: 06-14-[address] Jim Vasquez Work Phone: [facility] Work Phone: Start: 06-12-2023 Non-patient / Non-visit Dr. Marcie Vasquez Work Phone: [facility] Start: 06-12-2023 End: 06-12-[address] Rishi Vasquez Work Phone: [facility] Work Phone: Start: 06-12-2023 End: 06-12-[address] Rishi Vasquez Work Phone: [facility] Work Phone: Start: 06-04-2023 End: 06-04-2023 Patient encounter procedure Rishi Vasquez DO Work Phone: [facility] Comment on above: Dysuria (Primary Dx) ; Acute cystitis with hematuria; Peripheral vascular occlusive disease (HCC); 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); CKD stage G3b/A1, GFR 30-44 and albumin creatinine ratio <30 mg/g (HCC); Dyslipidemia (high LDL; low HDL); Vitamin D deficiency; Multinodular thyroid; Essential hypertension; Arthritis, multiple joint involvement Start: 05-29-2023 Documentation procedure Mammog rain Coordinator [facility] Start: 05-29-2023 Letter encounter Mammography Coordinator [facility] Department Start: 05-29-2023 Telephone encounter Danyelle allen PA-C Work Phone: [facility] Comment on above: Results Start: 05-29-2023 End: 05-29-2023 Subsequent hospital visit by physician [facility] Comment on above: Encounter for screen ing mammogram for malignant neoplasm of breast [Z12.31] Start: 05-27-2023 Refill Rishi contreras DO Work Phone: [facility] Comment on above: Refill Request Start: 05-17-2023 End: 05-18-[address] Rishi Vasquez Work Phone: [facility] Work Phone: Start: 05-17-2023 End: 05-18-[address] Rishi Vasquez Work Phone: [facility] Work Phone: Start: 04-20-2023 End: 04-20-[address] Rishi Vasquez Work Phone: [facility] Work Phone: Start: 04-17-2023 End: 04-18-[address] [facility] Work Phone: Start: 04-17-2023 End: 04-18-2023 Discharged [address] [facility] Start: 03-15-2023 End: 03-18-[address] [facility] Work Phone: Start: 03-15-2023 End: 03-18-2023 Discharged [address] [facility] Start: 03-12-2023 Telephone encounter Rishi julian DO Work Phone: [facility] Comment on above: Release Of Medical R ecords Start: 02-27-2023 ambulatory Rishi contreras DO Work Phone: Internal Medicine [facility] Start: 02-15-2023 End: 02-16-[address] Rishi Vasquez Work Phone: [facility] Work Phone: Start: 02-15-2023 End: 02-16-[address] Rishi Vasquez Work Phone: [facility] Start: 02-05-2023 ambulatory Rishi contreras DO Work Phone: [facility] Comment on above: MAMOGRAM Start: 01-22-2023 Telephone encounter Rishi julian DO Work Phone: [facility] Comment on above: Appointment; Phuong VYAS Start: 01-16-2023 End: 01-16-[address] Rishi Vasquez Work Phone: [facility] Work Phone: Start: 01-16-2023 End: 01-16-[address] Rishi Vasquez Work Phone: [facility] Start: 01-08-2023 Refill Clary Dmitry CONLEY Work Phone: [facility] Comment on above: Refill Request Start: 01-04-2023 Telephone encounter Rishi julian DO Work Phone: [facility] Comment on above: Results Start: 12-29-2022 End: 12-29-2022 Subsequent hospital visit by physician [facility] Work Phone: Nuclear Medicine Comment on above: Abnormal thyroid fun ction test [R94.6] Start: 12-28-2022 End: 12-28-2022 Subsequent hospital visit by physician [facility] Work Phone: Nuclear Medicine Comment on above: Abnormal thyroid fun ction test [R94.6] Start: 12-26-2022 Telephone encounter Rishi julian DO Work Phone: [facility] Comment on above: Results Start: 12-20-2022 End: 12-20-2022 Subsequent hospital visit by physician [facility] Work Phone: Radiology Comment on above: Abnormal thyroid fun ction test [R94.6] Start: 12-19-2022 End: 12-19-[address] Rishi Vasquez Work Phone: [facility] Work Phone: Start: 12-19-2022 End: 12-19-[address] Rishi Vasquez Work Phone: [facility] Start: 12-07-2022 Telephone encounter Rishi julian DO Work Phone: [facility] Comment on above: testing question Start: 12-05-2022 End: 12-05-2022 Patient encounter procedure Rishi Vasquez DO Work Phone: [facility] Comment on above: Diabetes mellitus ty pe 2 with peripheral artery disease (HCC) (Primary Dx); Peripheral vascular occlusive disease (HCC); Dyslipidemia (high LDL; low HDL); Essential hypertension; Dizziness; Carotid atherosclerosis, bilateral; Biceps rupture, proximal, left, initial encounter; Chronic kidney disease, stage 3a (HCC) Start: 11-16-2022 End: 11-18-[address] Rishi Vasquez Work Phone: [facility] Work Phone: Start: 11-16-2022 End: 11-18-[address] Rishi Vasquez Work Phone: [facility] Start: 11-02-[address] Jim Vasquez Work Phone: [facility] Start: 10-27-2022 Non-patient / Non-visit Dr. Marcie Vasquez Work Phone: [facility] Start: 10-27-2022 End: 10-27-[address] Rishi Vasquez Work Phone: [facility] Work Phone: Start: 10-27-2022 End: 10-27-[address] Rishi Vasquez Work Phone: [facility] Start: 10-17-2022 End: 10-18-[address] Rishi Vasquez Work Phone: [facility] Work Phone: Start: 10-17-2022 End: 10-18-[address] Rishi Vasquez Work Phone: [facility] Start: 09-23-2022 End: 09-23-2022 Patient encounter procedure Camille Mitchell PA-C Work Phone: [facility] Comment on above: Acute cystitis with hematuria (Primary Dx) Start: 09-14-2022 End: 09-18-[address] Rishi Vasquez Work Phone: [facility] Work Phone: Start: 09-14-2022 End: 09-18-[address] [facility] Start: 09-09-2022 End: 09-09-2022 ambulatory [facility] Work Phone: [facility] Comment on above: Arrived Start: 09-06-2022 Telephone encounter Rishi julian DO Work Phone: [facility] Comment on above: Results Start: 08-17-2022 End: 08-18-[address] Rishi Vasquez Work Phone: [facility] Work Phone: Start: 08-17-2022 End: 08-18-[address] [facility] Start: 08-15-2022 End: 08-15-2022 Subsequent hospital visit by physician Daniela [facility] Work Phone: Radiology Comment on above: Injury of sternum, i nitial encounter [S29.9XXA] Start: 08-15-2022 End: 08-15-2022 Patient encounter procedure Camille Mitchell PA-C Work Phone: [facility] Comment on above: Injury of sternum, i nitial encounter (Primary Dx); Wrist injury, right, initial encounter Start: 08-08-2022 End: 08-08-[address] Rishi Vasquez Work Phone: [facility] Start: 07-18-2022 End: 07-19-[address] Rishi Vasquez Work Phone: [facility] Work Phone: Start: 07-18-2022 End: 07-19-[address] Rishi Vasquez Work Phone: [facility] Start: 06-29-2022 End: 06-29-[address] Rishi Vasquez Work Phone: [facility] Start: 06-22-2022 Non-patient / Non-visit Dr. Marcie Vasquez Work Phone: [facility] Start: 06-22-2022 End: 06-22-[address] Rishi Vasquez Work Phone: [facility] Start: 06-17-2022 End: 06-17-2022 Subsequent hospital visit by physician [facility] Work Phone: Radiology Comment on above: Acute pain of right shoulder [M25.511] Start: 06-17-2022 End: 06-17-2022 Patient encounter procedure Kena Sims APRN.SHIRT MARKER Work Phone: [facility] Comment on above: Acute pain of right shoulder (Primary Dx) Start: 06-15-2022 End: 06-18-2022 Discharged [address] [facility] Start: 06-05-2022 Documentation procedure Mammog rain Coordinator [facility] Start: 06-05-2022 Letter encounter Mammography Coordinator [facility] Start: 06-05-2022 Telephone encounter Yani Cid APRN.SHIRT MARKER Work Phone: [facility] Comment on above: Results; Appointment Start: 06-05-2022 End: 06-05-2022 Subsequent hospital visit by physician [facility] Comment on above: Encounter for screen ing mammogram for malignant neoplasm of breast [Z12.31] Start: 05-31-2022 End: 05-31-2022 Patient encounter procedure Rishi Vasquez DO Work Phone: [facility] Comment on above: Diabetes mellitus ty pe 2 with peripheral artery disease (HCC) (Primary Dx); Peripheral vascular occlusive disease (HCC); Vitamin D deficiency; Stage 3 chronic kidney disease, unspecified whether stage 3a or 3b CKD (HCC); Essential hypertension; Dyslipidemia (high LDL; low HDL); Arthritis, multiple joint involvement; Coronary artery disease involving [place] heart, unspecified vessel or lesion type, unspecified whether angina present; Fatigue, unspecified type Start: 05-24-2022 Telephone encounter Rishi julian DO Work Phone: General Surgery Comment on above: Outpatient [place] [facility] Start: 05-18-2022 End: 05-18-2022 Discharged Recurring [facility] Start: 05-01-2022 Refill Rishi contreras DO Work Phone: [facility] Comment on above: Refill Request Start: 04-25-2022 ambulatory Rishi Wright son DO Work Phone: [facility] Comment on above: BLOOD WORK Start: 04-21-2022 Refill Yani mcclure IRON INSTALLER.SHIRT MARKER Work Phone: [facility] Comment on above: Refill Request Start: 04-18-2022 End: 04-18-[address] Rishi Vasquez Work Phone: [facility] Start: 03-22-2022 Refill Rishi Lawrence Adriana son DO Work Phone: [facility] Comment on above: Refill Request Start: 03-16-2022 End: 03-18-[address] Rishi Vasquez Work Phone: [facility] Start: 02-24-2022 Telephone encounter Yani Cid APRN.SHIRT MARKER Work Phone: [facility] Comment on above: Results Start: 02-16-2022 End: 02-16-[address] [facility] Start: 02-07-2022 End: 02-07-[address] Rishi Vasquez Work Phone: [facility] Start: 01-20-2022 Non-patient / Non-visit Dr. Marcie Vasquez Work Phone: [facility] Start: 01-20-2022 End: 01-20-2022 Admission to same day surgery center Dr. Rishi Vasquez Work Phone: [facility] Start: 01-10-2022 End: 01-16-[address] Rishi Vasquez Work Phone: [facility] Start: 12-29-2021 End: 12-29-[address] Rishi Vasquez Work Phone: [facility] Start: 12-15-2021 End: 12-19-[address] Rishi Vasquez Work Phone: [facility] Start: 11-17-2021 End: 11-18-[address] Rishi Vasquez Work Phone: [facility] Procedures Date Procedure Procedure Detail Performing Clinician Start: 05-21-2025 Blood count smear mc rscp w/mnl difrntl [...] Dr. Rishi Vasquez DO Work Phone: Start: 07-02-[address] Rishi Vasquez DO Work Phone: Start: 05-20-2025 Gram stain microscopy D viv Vasquez DO Work Phone: Start: 05-19-2025 Serum inorganic phos phate measurement Dr. Rishi Vasquez DO Work Phone: Start: 05-18-2025 Bacterial nucleic ac id assay Dr. Rishi Vasquez DO Work Phone: Start: 05-18-2025 Gram stain microscopy D viv Vasquez DO Work Phone: Start: 05-18-2025 End: 05-18-2025 Microbial culture, routine Dr. Rishi Vasquez DO Work Phone: Start: 05-18-2025 X-ray of ankle, thre e or more views Dr. Rishi Vasquez DO Work Phone: Start: 05-18-[address] Marcie Vaqsuez DO Work Phone: Start: 05-18-2025 CT angiography of ch est with contrast Dr. Rishi Vasquez DO Work Phone: Start: 05-18-2025 CT of abdomen and pe lvis without contrast Dr. Rishi Vasquez DO Work Phone: Start: 05-18-2025 Blood count smear mc rscp w/mnl difrntl [...] real t asad with image limited Rishi Melinda Vasquez DO Work Phone: Start: 07-10-2023 Digital breast tomosynthesis unilateral Danyelle Tripp PA-C Work Phone: Start: 06-04-2023 Urnls dip stick/tabl et rgnt auto w/o microscopy Rishi Lawrence Vasquez DO Work Phone: Start: 05-29-2023 End: 05-29-2023 Mammography Clary Andres IRON INSTALLER.SHIRT MARKER Work Phone: Start: 12-29-2022 Thyroid uptake w/blo od flow sngle/mult jamari natalia Rishi Melinda Vasquez DO Work Phone: Start: 12-20-2022 Us soft tissue head & neck real time imge docm Rishi Vasquez DO Work Phone: Start: 09-23-2022 Urnls dip stick/tabl et rgnt auto w/o microscopy Patel Aquino IRON INSTALLER.SHIRT MARKER Work Phone: Start: 09-09-2022 INFLUENZA SEASONAL QUADRIVALENT HIGH DOSE AGE 65+ Rishi Melinda Vasquez DO Work Phone: Start: 08-15-2022 Radex wrist complete minimum 3 views Camille Mitchell PASergioC Work Phone: Start: 06-17-2022 Radex shoulder compl ete minimum 2 views Kena Schrader IRON INSTALLER.SHIRT MARKER Work Phone: Start: 06-05-2022 End: 06-05-2022 Screening mammography bi 2-view breast inc cad Rishi Melinda Vasquez DO Work Phone: Start: 05-31-2022 Hemoglobin A1c/Hemoglobin.total in Blood Rishi Melinda Vasquez DO Work Phone: Start: 01-20-2022 Colonoscopy [facility] IRON INSTALLER.SHIRT MARKER Work Phone: Start: 06-10-2021 Mammography [facility] IRON INSTALLER.SHIRT MARKER Work Phone: Start: 06-11-2017 End: 06-11-2017 ISAC [...] [Mass/volume] in Serum or Plasma Rebekah Castrejon [employer] Work Phone: Start: 02-06-2017 End: 02-06-2017 Dietary management education, guidance, and counseling Shaina Serna LPN Start: 02-06-2017 End: 02-07-2017 Thyroid stimulating hormone (TSH) Rebekah Castrejon [employer] Work Phone: Start: 02-06-2017 End: 02-08-2017 Thyroperoxidase antibody Rebekah Castrejon [employer] Work Phone: Start: 02-06-2017 End: 02-07-2017 Thyroxine (T4) free Rebekah Castrejon [employer] Work Phone: Start: 02-06-2017 End: 02-07-2017 Triiodothyronine (T3) free Rebekah Castrejon [employer] Work Phone: Start: 01-08-2017 End: 01-15-2017 *BMP [...] End: 01-15-2017 C reactive protein (hsCRP) Marly Ptaino MD Start: 01-04-2017 End: 01-15-2017 Erythrocyte sedimentation rate Marly Patino MD Start: 01-04-2017 End: 01-04-2017 MRSA presence Marly Patino MD Start: 01-04-2017 End: 01-04-2017 X-ray exam of foot Marly J Signs Start: 01-01-2017 End: 01-02-2017 [...] Marly J Signs Start: 12-20-2016 End: 12-20-2016 Niurka Serna LPN Start: 12-20-2016 End: 12-20-2016 X-ray exam of foot Marly J Sukumar LUNDBERG Start: 12-18-2016 End: 12-20-2016 *CDIF - Clostridium Diff. Toxin Stool Marly J Sukumar LUNDBERG Start: 12-18-2016 End: 12-20-2016 *CDIF - Clostridium Diff. Toxin Stool Marly J Signs Start: 12-13-2016 End: 12-15-2016 Radex foot complete [...] End: 06-18-2014 24 hour holter monitor LILLIAM Rodriguez-Andrés Work Phone: Start: 06-12-2014 End: 06-22-2014 Carotid [...] RSV Vaccine (1 - 1-dose 75+ series) [facility] Start: 01-20-2027 Colonoscopy COLONOSCOPY [facility] Start: 01-20-2027 COLORECTAL CANCER SCREENING COLORECTAL CANCER SCREENING [facility] Start: 01-20-2027 Screening for malignant neoplasm of colon [facility] Start: 04-30-2026 Annual PCP Team Chronic Disease Visit Annual PCP Team Chronic Disease Visit [facility] Start: 04-30-2026 Covid-19 Vaccine ( season) Covid-19 Vaccine ( season) [facility] Comment on above: Postponed from 07/20/2024 (Declined at t his time) Start: 04-30-2026 Shingrix Vaccine (1 of 2) Shingrix Vaccine (1 of 2) [facility] Comment on above: Postponed from 2002 (Declined at t his time) Start: 04-30-2026 Urine microalbumin profile DTaP,Tdap,Td Vaccine (2 - Td or Tdap) [facility] Comment on above: Postponed from 04/24/2023 (Declined at t his time) Start: 03-27-2026 Annual PCP Team Chronic Disease Visit Annual PCP Team Chronic Disease Visit [facility] Start: 12-05-2025 Annual PCP Team Chronic Disease Visit Annual PCP Team Chronic Disease Visit [facility] Start: 12-05-2025 BP Controlled (<130/80) BP Controlled (<130/80) [facility] Start: 12-01-2025 Complete blood count Hemoglobin/Hematocrit [facility] Start: 12-01-2025 Creatinine measurement Serum Creatinine [facility] Start: 12-01-2025 Hepatitis B surface antibody level LDL Cholesterol [facility] Start: 06-16-2025 End: 06-16-2025 Patient encounter procedure 06/16/2025 12:00 PM EDT Office Visit [facility] [address] [place] [address] Rishi Vasquez DO [address] [place] [address] LVM 1st attempt Physical [facility] Comment on above: LVM 1st attempt Physical Start: 06-09-2025 End: 06-09-2025 Patient encounter procedure 06/09/2025 9:00 AM EDT Office Visit [facility] [address] [place] [address] Rishi Vasquez DO [address] [place] [address] Physical [facility] Comment on above: Physical Start: 06-08-2025 End: 06-08-2025 ambulatory 06/08/2025 8:30 AM EDT Results Only [facility] Draw Station [address] [place] [address] [facility] Station Start: 06-04-2025 Annual PCP Team Chronic Disease Visit Annual PCP Team Chronic Disease Visit [facility] Start: 06-04-2025 BP Controlled (<130/80) BP Controlled (<130/80) [facility] Start: 06-04-2025 End: 06-04-2025 Patient encounter procedure 06/04/2025 9:30 AM EDT Appointment Mammogram [address] [place] [address] Encounter for screening mammogram for malignant neoplasm of breast [Z12.31] Mammogram Comment on above: Encounter for screening mammogram for ma lignant neoplasm of breast [Z12.31] Start: 06-03-2025 Screening for malignant neoplasm of breast Mammogram Screening [facility] Start: 06-02-2025 Glaucoma screening Dilated Retinal Exam [facility] Start: 05-31-2025 Hemoglobin A1c measurement HbA1C [facility] Start: 05-30-2025 Complete blood count Hemoglobin/Hematocrit [facility] Start: 05-30-2025 Creatinine measurement Serum Creatinine [facility] Start: 05-30-2025 Hepatitis B surface antibody level LDL Cholesterol [facility] Start: 05-21-2025 End: 05-21-[address] [facility] Start: 05-21-2025 Patient discharge [facility] Start: 05-21-2025 Referral to service [facility] Start: 05-21-2025 Referral to service [facility] Start: 05-20-2025 Microbial culture, routine [facility] Start: 05-20-2025 End: 05-20-[address] [facility] Start: 05-20-2025 Mycology culture [facility] Start: 05-20-[address] [facility] Start: 05-19-2025 Serum inorganic phosphate measurement [facility] Start: 05-19-[address] [facility] Start: 05-18-2025 Urine culture [facility] Start: 05-18-2025 End: 05-18-[address] [facility] Start: 05-18-[address] [facility] Start: 05-18-[address] [facility] Start: 05-18-2025 Application of intermittent pneumatic compression device [facility] Start: 05-18-2025 Bacterial nucleic acid assay [facility] Start: 05-18-2025 Assessment of risk of venous thromboembolism [facility] Start: 05-18-[address] [facility] Start: 05-18-[address] [facility] Start: 05-18-2025 Consultation for treatment [facility] Start: 05-18-2025 Elevation of affected extremity [facility] Start: 05-18-2025 Fall prevention [facility] Start: 05-18-2025 Incentive spirometry [facility] Start: 05-18-2025 Inhalation therapy procedure [facility] Start: 05-18-2025 Insertion of catheter into peripheral vein [facility] Start: 05-18-2025 Introduction of urinary catheter [facility] Start: 05-18-2025 Measuring intake and output [facility] Start: 05-18-2025 Notification of physician [facility] Start: 05-18-[address] [facility] Start: 05-18-2025 Patient referral to dietitian [facility] Start: 05-18-2025 Providing care according to standard [facility] Start: 05-18-2025 Provision of activity privileges [facility] Start: 05-18-2025 Referral to occupational therapist [facility] Start: 05-18-2025 Referral to indoor landscape architect [facility] Start: 05-18-2025 Referral to service [facility] Start: 05-18-2025 Referral to vascular surgeon [facility] Start: 05-18-[address] [facility] Start: 05-18-2025 Following clinical pathway protocol [facility] Start: 05-18-2025 Serum inorganic phosphate measurement [facility] Start: 05-18-2025 Verification routine [facility] Start: 05-18-2025 Admission procedure [facility] Start: 05-18-2025 Hospital admission, emergency, from emergency room, medical nature [facility] Start: 05-18-[address] [facility] Start: 05-17-2025 End: 05-17-[address] [facility] Start: 05-17-[address] [facility] [facility] Start: 04-15-[address] [facility] Start: 04-02-2025 Diabetic foot examination Diabetic Foot Exam [facility] Start: 03-27-2025 End: 03-27-2025 Patient encounter procedure 03/27/2025 10:00 AM EDT Office Visit [facility] [place] [address] [place] [address] PodlogarYumiko APRN.SHIRT MARKER [address] [place] [address] Discharged 03/20/25 [facility] - Adult failure to thrive, falls, rabdo (no availability within recommended one week F/U with PCP dyad) [facility] Comment on above: Discharged 03/20/25 [facility] - Adult failure to thrive, falls, rabdo (no availability within recommended one week F/U with PCP dyad) Start: 03-20-2025 Patient discharge [facility] Start: 03-19-2025 Developing a treatment plan [facility] Start: 03-19-2025 Development of care plan [facility] Start: 03-19-2025 End: 03-19-[address] [facility] Start: 03-19-2025 End: 03-19-2025 Administration of blood product [facility] Start: 03-18-2025 Referral to service [facility] Start: 03-17-[address] [facility] Start: 03-12-2025 Application of intermittent pneumatic compression device [facility] Start: 03-12-2025 Development of care plan [facility] Start: 03-12-2025 Developing a treatment plan [facility] Start: 03-11-[address] [facility] Start: 03-11-2025 Referral to indoor landscape architect [facility] Start: 03-11-2025 Referral to vascular surgeon [facility] Start: 03-11-2025 Contact precautions [facility] Start: 03-11-[address] [facility] Start: 03-11-2025 Admission procedure [facility] Start: 03-11-2025 Introduction of urinary catheter [facility] Start: 03-11-2025 Measuring intake and output [facility] Start: 03-11-2025 Patient referral to dietitian [facility] Start: 03-11-2025 Referral to occupational therapist [facility] Start: 03-11-2025 Referral to service [facility] Start: 03-11-2025 Vital signs measurements [facility] Start: 03-11-[address] [facility] Start: 03-11-2025 End: 03-11-2025 Consultation for treatment [facility] Start: 03-11-2025 Following clinical pathway protocol [facility] Start: 03-11-2025 Patient discharge [facility] Start: 03-10-[address] [facility] Start: 03-08-[address] [facility] Start: 03-08-[address] [facility] Start: 03-08-2025 Referral to auto service mechanic [facility] Start: 03-08-[address] [facility] Start: 03-08-2025 Referral to vascular surgeon [facility] Start: 03-08-2025 Application of intermittent pneumatic compression device [facility] Start: 03-07-2025 Following clinical pathway protocol [facility] Start: 03-07-2025 Assessment of risk of venous thromboembolism [facility] Start: 03-07-[address] [facility] Start: 03-07-2025 Consultation for treatment [facility] Start: 03-07-2025 Elevation of affected extremity [facility] Start: 03-07-2025 Fall prevention [facility] Start: 03-07-2025 Insertion of catheter into peripheral vein [facility] Start: 03-07-2025 Introduction of urinary catheter [facility] Start: 03-07-2025 Measuring intake and output [facility] Start: 03-07-2025 Notification of physician [facility] Start: 03-07-2025 Patient referral to dietitian [facility] Start: 03-07-2025 Providing care according to standard [facility] Start: 03-07-2025 Provision of activity privileges [facility] Start: 03-07-2025 Referral to occupational therapist [facility] Start: 03-07-2025 Referral to indoor landscape architect [facility] Start: 03-07-2025 Referral to service [facility] Start: 03-07-[address] [facility] Start: 03-07-2025 End: 03-07-[address] [facility] Start: 03-07-2025 Admission procedure [facility] Start: 03-07-2025 Hospital admission, emergency, from emergency room, medical nature [facility] Start: 03-07-2025 End: 03-07-[address] [facility] Start: 03-07-2025 Bacteria identified in Urine by Culture Urine Culture [facility] Start: 03-07-[address] [facility] Start: 02-26-2025 Anaerobic microbial culture Anaerobic Culture [facility] Start: 02-26-[address] [facility] Start: 02-16-[address] [facility] Start: 02-16-2025 Microbial culture, routine Wound Culture [facility] Start: 02-16-2025 Microscopic observation [Identifier] in Unspecified specimen by Gram stain [facility] Start: 02-16-2025 Wound Culture Wound Culture [facility] Start: 12-05-2024 End: 03-06-2025 25-hydroxyvitamin D3 [Mass/volume] in Serum or Plasma VITAMIN D 25 HYDROXY Lab Routine Vitamin D deficiency Expected: 12/05/2024, Expires: 03/06/2025 [facility] Comment on above: Expected: 12/05/2024, Expires: Start: 12-05-2024 Annual PCP Team Chronic Disease Visit Annual PCP Team Chronic Disease Visit [facility] Start: 12-05-2024 End: 03-06-2025 CBC panel - Blood by Automated count COMPLETE BLOOD COUNT Lab Routine Peripheral vascular occlusive disease (HCC) Expected: 12/05/2024, Expires: 03/06/2025 [facility] Comment on above: Expected: 12/05/2024, Expires: Start: 12-05-2024 End: 03-06-2025 Cobalamin (Vitamin B12) [Mass/volume] in Serum or Plasma VITAMIN B12 Lab Routine 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) Expected: 12/05/2024, Expires: 03/06/2025 [facility] Comment on above: Expected: 12/05/2024, Expires: Start: 12-05-2024 End: 03-06-2025 Comprehensive metabolic 2000 panel - Serum or Plasma COMPREHENSIVE METABOLIC PANEL Lab Routine 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) Expected: 12/05/2024, Expires: 03/06/2025 [facility] Comment on above: Expected: 12/05/2024, Expires: Start: 12-05-2024 End: 03-06-2025 Hemoglobin A1c in Blood HEMOGLOBIN A1C Lab Routine 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) Expected: 12/05/2024, Expires: 03/06/2025 [facility] Work Phone: Comment on above: Expected: 12/05/2024, Expires: Start: 12-05-2024 End: 03-06-2025 Lipid 1996 panel - Serum or Plasma LIPID PANEL BASIC Lab Routine Dyslipidemia (high LDL; low HDL) Expected: 12/05/2024, Expires: 03/06/2025 [facility] Comment on above: Expected: 12/05/2024, Expires: Start: 12-05-2024 End: 03-06-2025 Thyrotropin [Units/volume] in Serum or Plasma THYROID STIMULATING HORMONE Lab Routine Multiple thyroid nodules Expected: 12/05/2024, Expires: 03/06/2025 [facility] Comment on above: Expected: 12/05/2024, Expires: Start: 12-05-2024 End: 03-06-2025 Thyroxine (T4) free [Mass/volume] in Serum or Plasma T4 FREE/FREE THYROXINE Lab Routine Multiple thyroid nodules Expected: 12/05/2024, Expires: 03/06/2025 [facility] Comment on above: Expected: 12/05/2024, Expires: Start: 12-05-2024 End: 12-05-2024 Patient encounter procedure 12/05/2024 9:00 AM EST Office Visit [facility] [address] [place] [address] Rishi Vasquez DO [address] [facility] [place] [id number] 6 month follow up [facility] Comment on above: 6 month follow up Start: 11-30-2024 Complete blood count Hemoglobin/Hematocrit [facility] Start: 11-30-2024 Creatinine measurement Serum Creatinine [facility] Start: 11-30-2024 Hemoglobin A1c measurement HbA1C [facility] Start: 11-30-2024 Hepatitis B surface antibody level LDL Cholesterol [facility] Start: 11-19-2024 Medicare Advantage Annual Wellness Visit Medicare Advantage Annual Wellness Visit [facility] Start: 11-15-2024 Glaucoma screening Dilated Retinal Exam [facility] Start: 09-05-2024 End: 09-05-2024 Patient encounter procedure 09/05/2024 9:20 AM EDT Immunization [facility] [address] [place] [address] [place], Immunization Clinic Nurse [address] [place] [id number] FLU SHOT [facility] Comment on above: FLU SHOT Start: 07-20-2024 Covid-19 Vaccine ( season) Covid-19 Vaccine ( season) [facility] Start: 07-20-2024 Covid-19 Vaccine () Covid-19 Vaccine () [facility] Start: 07-20-2024 Influenza vaccination Influenza Vaccine (#1) [facility] Start: 06-04-2024 3 comp foot exam completed DIABETIC FOOT EXAM [facility] Start: 06-04-2024 ANNUAL PCP TEAM CHRONIC DISEASE VISIT ANNUAL PCP TEAM CHRONIC DISEASE VISIT [facility] Start: 06-04-2024 BP CONTROLLED (<130/80) BP CONTROLLED (<130/80) [facility] Start: 06-04-2024 Diabetic foot examination Diabetic Foot Exam [facility] Start: 06-04-2024 End: 06-04-2024 Patient encounter procedure 06/04/2024 9:40 AM EDT Office Visit [facility] [address] [place] [address] Rishi Vasquez DO [address] [place] [address] 6 month follow up [facility] Comment on above: 6 month follow up Start: 06-03-2024 End: 06-03-2024 Patient encounter procedure 06/03/2024 9:30 AM EDT Appointment Mammogram [address] [place] [address] Encounter for screening mammogram for malignant neoplasm of breast [Z12.31] Mammogram Comment on above: Encounter for screening mammogram for ma lignant neoplasm of breast [Z12.31] Start: 05-30-2024 End: 08-29-2024 25-hydroxyvitamin D3 [Mass/volume] in Serum or Plasma VITAMIN D 25 HYDROXY Lab Routine Vitamin D deficiency Expected: 05/30/2024 (Approximate), Expires: 08/29/2024 [facility] Comment on above: Expected: 05/30/2024 (Approximate), Expi res: 08/29/2024 Start: 05-30-2024 End: 08-29-2024 CBC W Auto Differential panel - Blood COMPLETE BLOOD COUNT AND DIFFERENTIAL Lab Routine Essential hypertension Fatigue, unspecified type Expected: 05/30/2024 (Approximate), Expires: 08/29/2024 [facility] Comment on above: Expected: 05/30/2024 (Approximate), Expi res: 08/29/2024 Start: 05-30-2024 End: 08-29-2024 Comprehensive metabolic 2000 panel - Serum or Plasma COMPREHENSIVE METABOLIC PANEL Lab Routine Essential hypertension 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) CKD stage G3b/A1, GFR 30-44 and albumin creatinine ratio <30 mg/g (HCC) Dyslipidemia (high LDL; low HDL) Expected: 05/30/2024 (Approximate), Expires: 08/29/2024 [facility] Comment on above: Expected: 05/30/2024 (Approximate), Expi res: 08/29/2024 Start: 05-30-2024 End: 08-29-2024 Hemoglobin A1c in Blood HEMOGLOBIN A1C Lab Routine 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) Expected: 05/30/2024 (Approximate), Expires: 08/29/2024 [facility] Comment on above: Expected: 05/30/2024 (Approximate), Expi res: 08/29/2024 Start: 05-30-2024 Hemoglobin A1c measurement HbA1C [facility] Start: 05-30-2024 HEMOGLOBIN/HEMATOCRIT HEMOGLOBIN/HEMATOCRIT [facility] Start: 05-30-2024 Hepatitis B screening URINE ALBUMIN:CREATININE RATIO [facility] Start: 05-30-2024 Hepatitis B surface antibody level LDL CHOLESTEROL [facility] Start: 05-30-2024 End: 08-29-2024 Lipid 1996 panel - Serum or Plasma LIPID PANEL BASIC Lab Routine Essential hypertension 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) Dyslipidemia (high LDL; low HDL) Expected: 05/30/2024 (Approximate), Expires: 08/29/2024 [facility] Work Phone: Comment on above: Expected: 05/30/2024 (Approximate), Expi res: 08/29/2024 Start: 05-30-2024 SERUM CREATININE SERUM CREATININE [facility] Start: 05-30-2024 End: 08-29-2024 Thyrotropin [Units/volume] in Serum or Plasma THYROID STIMULATING HORMONE Lab Routine Multiple thyroid nodules Low TSH level Fatigue, unspecified type Expected: 05/30/2024 (Approximate), Expires: 08/29/2024 [facility] Comment on above: Expected: 05/30/2024 (Approximate), Expi res: 08/29/2024 Start: 05-30-2024 End: 08-29-2024 Thyroxine (T4) free [Mass/volume] in Serum or Plasma T4 FREE/FREE THYROXINE Lab Routine Multiple thyroid nodules Low TSH level Fatigue, unspecified type Expected: 05/30/2024 (Approximate), Expires: 08/29/2024 [facility] Comment on above: Expected: 05/30/2024 (Approximate), Expi res: 08/29/2024 Start: 05-30-2024 End: 08-29-2024 Triiodothyronine (T3) Free [Mass/volume] in Serum or Plasma T3, FREE Lab Routine Multiple thyroid nodules Low TSH level Fatigue, unspecified type Expected: 05/30/2024 (Approximate), Expires: 08/29/2024 [facility] Comment on above: Expected: 05/30/2024 (Approximate), Expi res: 08/29/2024 Start: 05-30-2024 End: 05-30-2024 ambulatory 05/30/2024 8:00 AM EDT Results Only [facility] [address] [place] [address] [facility] Start: 05-29-2024 Mammography [facility] Start: 05-29-2024 Screening for malignant neoplasm of breast Mammogram Screening [facility] Start: 04-16-2024 End: 04-16-2024 ambulatory 04/16/2024 4:45 PM EDT OT/PT/Speech Visit [facility] [address] [place] [address] Anselmo Marr PT [address] [place] [address] test [facility] Comment on above: test Start: 03-25-2024 End: 03-25-2024 ambulatory 03/25/2024 9:30 AM EDT OT/PT/Speech Visit [facility] [address] [place] [address] Keisha Guzman, GENERAL WAREHOUSE WORKER [address] [place] [address] M54.50,G89.29 (ICD-10-CM) - Chronic midline low back pain without sciatica [facility] Comment on above: M54.50,G89.29 (ICD-10-CM) - Chronic midl ine low back pain without sciatica Start: 03-20-2024 End: 03-20-2024 ambulatory 03/20/2024 10:00 AM EDT OT/PT/Speech Visit [facility] [address] [place] [address] Anselmo Marr, PT [address] [place] [address] M54.50,G89.29 (ICD-10-CM) - Chronic midline low back pain without sciatica [facility] Comment on above: M54.50,G89.29 (ICD-10-CM) - Chronic midl ine low back pain without sciatica Start: 12-14-2023 HEMOGLOBIN/HEMATOCRIT HEMOGLOBIN/HEMATOCRIT [facility] Start: 12-14-2023 SERUM CREATININE SERUM CREATININE [facility] Start: 12-05-2023 ANNUAL PCP TEAM CHRONIC DISEASE VISIT ANNUAL PCP TEAM CHRONIC DISEASE VISIT [facility] Start: 12-05-2023 BP CONTROLLED (<130/80) BP CONTROLLED (<130/80) [facility] Start: 11-30-2023 Hemoglobin A1c/Hemoglobin.total in Blood HBA1C [facility] Start: 08-31-2023 HEMOGLOBIN/HEMATOCRIT HEMOGLOBIN/HEMATOCRIT [facility] Start: 08-31-2023 Hepatitis B surface antibody level LDL CHOLESTEROL [facility] Start: 08-31-2023 SERUM CREATININE SERUM CREATININE [facility] Start: 08-16-2023 Anaerobic Culture Anaerobic Culture [facility] Start: 07-20-2023 Covid-19 Vaccine ( season) Covid-19 Vaccine ( season) [facility] Start: 07-20-2023 Influenza vaccination [facility] Start: 06-13-2023 Hemoglobin A1c/Hemoglobin.total in Blood HBA1C [facility] Start: 06-05-2023 Mammography MAMMOGRAM [facility] Start: 06-04-2023 End: 08-04-2023 Bacteria identified in Urine by Culture [facility] Work Phone: Comment on above: Expected: 06/04/2023, Expires: 3 Start: 05-31-2023 ANNUAL PCP TEAM CHRONIC DISEASE VISIT ANNUAL PCP TEAM CHRONIC DISEASE VISIT [facility] Start: 05-31-2023 BP CONTROLLED (<130/80) BP CONTROLLED (<130/80) [facility] Start: 05-16-2023 3 comp foot exam completed DIABETIC FOOT EXAM [facility] Start: 05-08-2023 Hepatitis C antibody, confirmatory test DILATED RETINAL EXAM [facility] Start: 04-24-2023 Urine microalbumin profile [facility] Start: 03-07-2023 SERUM CREATININE SERUM CREATININE [facility] Start: 03-01-2023 Hemoglobin A1c/Hemoglobin.total in Blood HBA1C [facility] Start: 02-27-2023 End: 04-29-2023 ALBUMIN/CREAT RATIO RND UR ALBUMIN/CREAT RATIO RND UR Lab Routine 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) Expected: 02/27/2023, Expires: 04/29/2023 [facility] Work Phone: Comment on above: Expected: 02/27/2023, Expires: 3 Start: 02-23-2023 HEMOGLOBIN/HEMATOCRIT HEMOGLOBIN/HEMATOCRIT [facility] Start: 02-23-2023 Hepatitis B surface antibody level LDL CHOLESTEROL [facility] Start: 12-05-2022 End: 02-04-2023 CBC W Auto Differential panel - Blood CBC + DIFF Lab Routine Dizziness Biceps rupture, proximal, left, initial encounter Expected: 12/05/2022, Expires: 02/04/2023 [facility] Work Phone: Comment on above: Expected: 12/05/2022, Expires: 3 Start: 12-05-2022 End: 02-04-2023 Comprehensive metabolic 2000 panel - Serum or Plasma COMP METABOLIC PANEL Lab Routine Dizziness Biceps rupture, proximal, left, initial encounter Expected: 12/05/2022, Expires: 02/04/2023 [facility] Work Phone: Comment on above: Expected: 12/05/2022, Expires: 3 Start: 12-05-2022 End: 02-04-2023 Creatine kinase [Enzymatic activity/volume] in Serum or Plasma CK CREATINE KINASE Lab Routine Dizziness Biceps rupture, proximal, left, initial encounter Expected: 12/05/2022, Expires: 02/04/2023 [facility] Work Phone: Comment on above: Expected: 12/05/2022, Expires: 3 Start: 12-05-2022 End: 02-04-2023 Hemoglobin A1c in Blood HGB A1C Lab Routine 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) Expected: 12/05/2022, Expires: 02/04/2023 [facility] Work Phone: Comment on above: Expected: 12/05/2022, Expires: 3 Start: 12-05-2022 End: 02-04-2023 Magnesium [Mass/volume] in Serum or Plasma MAGNESIUM BLD Lab Routine Dizziness Biceps rupture, proximal, left, initial encounter Expected: 12/05/2022, Expires: 02/04/2023 [facility] Work Phone: Comment on above: Expected: 12/05/2022, Expires: 3 Start: 12-05-2022 End: 02-04-2023 Thyrotropin [Units/volume] in Serum or Plasma TSH BLD Lab Routine Dizziness Expected: 12/05/2022, Expires: 02/04/2023 [facility] Work Phone: Comment on above: Expected: 12/05/2022, Expires: 3 Start: 12-05-2022 End: 02-04-2023 Thyroxine (T4) free [Mass/volume] in Serum or Plasma T4 FREE/FREE THYROX Lab Routine Dizziness Expected: 12/05/2022, Expires: 02/04/2023 [facility] Work Phone: Comment on above: Expected: 12/05/2022, Expires: 3 Start: 12-02-2022 ANNUAL PCP TEAM CHRONIC DISEASE VISIT ANNUAL PCP TEAM CHRONIC DISEASE VISIT [facility] Start: 12-01-2022 Hemoglobin A1c/Hemoglobin.total in Blood HBA1C [facility] Start: 11-28-2022 Hepatitis B screening URINE ALBUMIN:CREATININE RATIO [facility] Start: 10-07-2022 End: 12-07-2022 Thyrotropin [Units/volume] in Serum or Plasma TSH BLD Lab Routine Low TSH level Abnormal thyroid blood test Borderline abnormal thyroid function test Expected: 10/07/2022, Expires: 12/07/2022 [facility] Work Phone: Comment on above: Expected: 10/07/2022, Expires: 3 Start: 10-07-2022 End: 12-07-2022 Thyroxine (T4) free [Mass/volume] in Serum or Plasma T4 FREE/FREE THYROX Lab Routine Low TSH level Abnormal thyroid blood test Borderline abnormal thyroid function test Expected: 10/07/2022, Expires: 12/07/2022 [facility] Work Phone: Comment on above: Expected: 10/07/2022, Expires: 3 Start: 10-07-2022 End: 12-07-2022 Triiodothyronine (T3) Free [Mass/volume] in Serum or Plasma T3 FREE BLD Lab Routine Low TSH level Abnormal thyroid blood test Borderline abnormal thyroid function test Expected: 10/07/2022, Expires: 12/07/2022 [facility] Work Phone: Comment on above: Expected: 10/07/2022, Expires: 3 Start: 08-31-2022 End: 10-31-2022 25-hydroxyvitamin D3 [Mass/volume] in Serum or Plasma VITAMIN D 25 HYDROXY Lab Routine Vitamin D deficiency Expected: 08/31/2022, Expires: 10/31/2022 [facility] Work Phone: Comment on above: Expected: 08/31/2022, Expires: 2 Start: 08-31-2022 End: 10-31-2022 CBC panel - Blood by Automated count CBC Lab Routine 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) Stage 3 chronic kidney disease, unspecified whether stage 3a or 3b CKD (HCC) Essential hypertension Dyslipidemia (high LDL; low HDL) Expected: 08/31/2022, Expires: 10/31/2022 [facility] Work Phone: Comment on above: Expected: 08/31/2022, Expires: 2 Start: 08-31-2022 End: 10-31-2022 Cobalamin (Vitamin B12) [Mass/volume] in Serum or Plasma VITAMIN B12 BLOOD Lab Routine 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) Expected: 08/31/2022, Expires: 10/31/2022 [facility] Work Phone: Comment on above: Expected: 08/31/2022, Expires: 2 Start: 08-31-2022 End: 10-31-2022 Comprehensive metabolic 2000 panel - Serum or Plasma COMP METABOLIC PANEL Lab Routine 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) Expected: 08/31/2022, Expires: 10/31/2022 [facility] Work Phone: Comment on above: Expected: 08/31/2022, Expires: 2 Start: 08-31-2022 End: 10-31-2022 Hemoglobin A1c in Blood HGB A1C Lab Routine 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) Expected: 08/31/2022, Expires: 10/31/2022 [facility] Work Phone: Comment on above: Expected: 08/31/2022, Expires: 2 Start: 08-31-2022 End: 10-31-2022 Lipid 1996 panel - Serum or Plasma LIPID PANEL BASIC Lab Routine Dyslipidemia (high LDL; low HDL) Expected: 08/31/2022, Expires: 10/31/2022 [facility] Work Phone: Comment on above: Expected: 08/31/2022, Expires: 2 Start: 08-31-2022 End: 10-31-2022 Thyrotropin [Units/volume] in Serum or Plasma TSH BLD Lab Routine 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) Stage 3 chronic kidney disease, unspecified whether stage 3a or 3b CKD (HCC) Fatigue, unspecified type Expected: 08/31/2022, Expires: 10/31/2022 [facility] Work Phone: Comment on above: Expected: 08/31/2022, Expires: 2 Start: 08-25-2022 Hemoglobin A1c/Hemoglobin.total [facility] Blood H[facility]C [facility] [facility] Start: 07-20-2022 Influenza vaccination INFLUENZA (#1) [facility] Start: 07-14-2022 BP CONTROLLED (<130/80) BP CONTROLLED (<130/80) [facility] Start: 06-10-2022 Mammography MAMMOGRAM [facility] Start: 05-30-2022 3 comp foot exam completed DIABETIC FOOT EXAM [facility] Start: 04-26-2022 COVID-19 VACCINE (3 - Booster for Kellee series) COVID-19 VACCINE (3 - Booster for Kellee series) [facility] Start: 03-30-2022 Hepatitis C antibody, confirmatory test DILATED RETINAL EXAM [facility] Start: 02-21-2022 COVID-19 VACCINE (3 - Booster for Kellee series) COVID-19 VACCINE (3 - Booster for Kellee series) [facility] Start: 01-20-2022 Colonoscopy flx dx w/collj spec when pfrmd DIAGNOSTIC COLONOSCOPY [facility] Work Phone: Start: 11-19-2021 ADVANCE DIRECTIVE DISCUSSION ADVANCE DIRECTIVE DISCUSSION [facility] Start: 12-17-2017 End: 12-17-2017 Appointment Appointment [facility] Work Phone: Start: 08-30-2017 End: 08-30-2017 Appointment Appointment [facility] Work Phone: Start: 06-11-2017 End: 06-11-2017 ISAC CHAU [facility] Work Phone: Start: 06-11-2017 End: 06-11-2017 Follow Up Appt 6 months Follow Up Appt 6 months [facility] Work Phone: Start: 06-11-2017 End: 06-11-2017 Appointment Appointment [facility] Work Phone: Start: 06-11-2017 End: 06-11-2017 DJN DJN [facility] Work Phone: Start: 06-11-2017 End: 06-11-2017 Follow Up Appt 6 months Follow Up Appt 6 months [facility] Work Phone: Start: 06-04-2017 End: 06-04-2017 Appointment Appointment [facility] Work Phone: Start: 05-04-2017 End: 05-04-2017 Thyroid stimulating hormone (TSH) *TSH [facility] Work Phone: Start: 05-04-2017 End: 05-04-2017 Thyroxine (T4) free *T4 free [facility] Work Phone: Start: 05-04-2017 End: 05-04-2017 Triiodothyronine (T3) free *T3-Free [facility] Work Phone: Start: 05-04-2017 End: 05-04-2017 Thyroid stimulating hormone (TSH) *TSH [facility] Work Phone: Start: 05-04-2017 End: 05-04-2017 Thyroxine (T4) free *T4 free [facility] Work Phone: Start: 05-04-2017 End: 05-04-2017 Triiodothyronine (T3) free *T3-Free [facility] Work Phone: Start: 05-02-2017 End: 05-02-2017 *BMP *BMP [facility] Work Phone: Start: 05-02-2017 End: 05-02-2017 *CBC with Differential *CBC with Differential [facility] Work Phone: Start: 05-02-2017 End: 05-02-2017 Appointment Appointment [facility] Work Phone: Start: 05-02-2017 End: 05-02-2017 *BMP *BMP [facility] Work Phone: Start: 05-02-2017 End: 05-02-2017 *CBC with Differential *CBC with Differential [facility] Work Phone: Start: 04-23-2017 End: 04-23-2017 C reactive protein (hsCRP) *CRP - C-Reative Protein [facility] Work Phone: Start: 04-23-2017 End: 04-23-2017 Erythrocyte sedimentation rate *Sedimentation Rate (ESR) [facility] Work Phone: Start: 04-23-2017 End: 04-23-2017 C reactive protein (hsCRP) *CRP - C-Reative Protein [facility] Work Phone: Start: 04-23-2017 End: 04-23-2017 Erythrocyte sedimentation rate *Sedimentation Rate (ESR) [facility] Work Phone: Start: 02-19-2017 End: 02-21-2017 C reactive protein (hsCRP) *CRP - C-Reative Protein [facility] Work Phone: Start: 02-19-2017 End: 02-21-2017 Erythrocyte sedimentation rate *Sedimentation Rate (ESR) [facility] Work Phone: Start: 02-19-2017 End: 02-21-2017 C reactive protein (hsCRP) *CRP - C-Reative Protein [facility] Work Phone: Start: 02-19-2017 End: 02-21-2017 Erythrocyte sedimentation rate *Sedimentation Rate (ESR) [facility] Work Phone: Start: 02-06-2017 End: 02-07-2017 Thyroid stimulating hormone (TSH) *TSH [facility] Work Phone: Start: 02-06-2017 End: 02-08-2017 Thyroperoxidase antibody *TPO Thyroid Peroxidase Antibodies [facility] Work Phone: Start: 02-06-2017 End: 02-07-2017 Thyroxine (T4) free *T4 free [facility] Work Phone: Start: 02-06-2017 End: 02-07-2017 Triiodothyronine (T3) free *T3-Free [facility] Work Phone: Start: 02-06-2017 End: 02-07-2017 Thyroid stimulating hormone (TSH) *TSH [facility] Work Phone: Start: 02-06-2017 End: 02-08-2017 Thyroperoxidase antibody *TPO Thyroid Peroxidase Antibodies [facility] Work Phone: Start: 02-06-2017 End: 02-07-2017 Thyroxine (T4) free *T4 free [facility] Work Phone: Start: 02-06-2017 End: 02-07-2017 Triiodothyronine (T3) free *T3-Free [facility] Work Phone: Start: 01-24-2017 End: 01-24-2017 Bacterica wound culture *Culture and Sensitivity, wound [facility] [employer] Work Phone: Start: 01-24-2017 End: 01-24-2017 Bacterica wound culture *Culture and Sensitivity, wound [facility] Work Phone: Start: 01-08-2017 End: 01-15-2017 *BMP *BMP [facility] [employer] Work Phone: Start: 01-08-2017 End: 01-15-2017 *CBC with Differential *CBC with Differential [facility] [employer] Work Phone: Start: 01-08-2017 End: 01-15-2017 C reactive protein (hsCRP) *CRP - C-Reative Protein [facility] [employer] Work Phone: Start: 01-08-2017 End: 01-15-2017 Erythrocyte sedimentation rate *Sedimentation Rate (ESR) [facility] [employer] Work Phone: Start: 01-08-2017 End: 01-15-2017 Mri lower extrem oth/thn jt w/o contr matrl MRI Non Joint Lower Extremity w/o [facility] Work Phone: Start: 01-08-2017 End: 01-15-2017 *BMP *BMP [facility] Work Phone: Start: 01-08-2017 End: 01-15-2017 *CBC with Differential *CBC with Differential [facility] Work Phone: Start: 01-08-2017 End: 01-15-2017 C reactive protein (hsCRP) *CRP - C-Reative Protein [facility] Work Phone: Start: 01-08-2017 End: 01-15-2017 Erythrocyte sedimentation rate *Sedimentation Rate (ESR) [facility] Work Phone: Start: 01-08-2017 End: 01-15-2017 Mri lower extremity w/o dye MRI Non Joint Lower Extremity w/o [facility] Work Phone: Start: 01-04-2017 End: 01-04-2017 *CBC with Differential *CBC with Differential [facility] [employer] Work Phone: Start: 01-04-2017 End: 01-04-2017 Bacterica wound culture *Culture and Sensitivity, wound [facility] [employer] Work Phone: Start: 01-04-2017 End: 01-04-2017 C reactive protein (hsCRP) *CRP - C-Reative Protein [facility] [employer] Work Phone: Start: 01-04-2017 End: 01-04-2017 Erythrocyte sedimentation rate *Sedimentation Rate (ESR) [facility] [employer] Work Phone: Start: 01-04-2017 End: 01-04-2017 MRSA presence *MRSAD - M R Staph Aureus DNA by PCR [facility] [employer] Work Phone: Start: 01-04-2017 End: 01-04-2017 Radex foot complete minimum 3 views X-Ray, Foot [facility] [employer] Work Phone: Start: 01-04-2017 End: 01-04-2017 *CBC with Differential *CBC with Differential [facility] Work Phone: Start: 01-04-2017 End: 01-04-2017 Bacterica wound culture *Culture and Sensitivity, wound [facility] Work Phone: Start: 01-04-2017 End: 01-04-2017 C reactive protein (hsCRP) *CRP - C-Reative Protein [facility] Work Phone: Start: 01-04-2017 End: 01-04-2017 Erythrocyte sedimentation rate *Sedimentation Rate (ESR) [facility] Work Phone: Start: 01-04-2017 End: 01-04-2017 MRSA presence *MRSAD - M R Staph Aureus DNA by PCR [facility] Work Phone: Start: 01-04-2017 End: 01-04-2017 X-ray exam of foot X-Ray, Foot [facility] Work Phone: Start: 01-01-2017 End: 01-02-2017 *CBC with Differential *CBC with Differential [facility] Work Phone: Start: 01-01-2017 End: 01-02-2017 C reactive protein (hsCRP) *CRP - C-Reative Protein [facility] Work Phone: Start: 01-01-2017 End: 01-02-2017 Erythrocyte sedimentation rate *Sedimentation Rate (ESR) [facility] Work Phone: Start: 01-01-2017 End: 01-02-2017 *CBC with Differential *CBC with Differential [facility] Work Phone: Start: 01-01-2017 End: 01-02-2017 C reactive protein (hsCRP) *CRP - C-Reative Protein [facility] Work Phone: Start: 01-01-2017 End: 01-02-2017 Erythrocyte sedimentation rate *Sedimentation Rate (ESR) [facility] Work Phone: Start: 12-20-2016 End: 12-20-2016 Radex foot complete minimum 3 views X-Ray, Foot [facility] Work Phone: Start: 12-20-2016 End: 12-20-2016 X-ray exam of foot X-Ray, Foot [facility] Work Phone: Start: 12-18-2016 End: 12-20-2016 *CDIF - Clostridium Diff. Toxin Stool *CDIF - Clostridium Diff. Toxin Stool [facility] Work Phone: Start: 12-18-2016 End: 12-20-2016 *CDIF - Clostridium Diff. Toxin Stool *CDIF - Clostridium Diff. Toxin Stool [facility] Work Phone: Start: 12-13-2016 End: 12-15-2016 Radex foot complete minimum 3 views X-Ray, Foot [facility] Work Phone: Start: 12-13-2016 End: 12-15-2016 X-ray exam of foot X-Ray, Foot [facility] Work Phone: Start: 12-05-2016 End: 12-05-2016 DJN TENZINN [facility] [employer] Work Phone: Start: 12-05-2016 End: 12-05-2016 Follow Up Appt 6 months Follow Up Appt 6 months [facility] [employer] Work Phone: Start: 12-05-2016 End: 12-05-2016 ISAC CHAU [facility] Work Phone: Start: 12-05-2016 End: 12-05-2016 Follow Up Appt 6 months Follow Up Appt 6 months [facility] Work Phone: Start: 11-22-2016 End: 11-23-2016 *IGSUB IMMUN Subclas-IGG1,2,3 &4 *IGSUB IMMUN Subclas-IGG1,2,3 &4 [facility] [employer] Work Phone: Start: 11-22-2016 End: 11-29-2016 Debridement subcutaneous tissue 20 sq cm/< Debridement, subcutaneous tissue first 20 sq cm or less [facility] [employer] Work Phone: Start: 11-22-2016 End: 11-23-2016 *IGSUB IMMUN Subclas-IGG1,2,3 &4 *IGSUB IMMUN Subclas-IGG1,2,3 &4 [facility] Work Phone: Start: 11-22-2016 End: 11-29-2016 Dalila subq tissue 20 sq cm/< Debridement, subcutaneous tissue first 20 sq cm or less [facility] Work Phone: Start: 09-22-2016 End: 09-29-2016 Debridement subcutaneous tissue 20 sq cm/< Debridement, subcutaneous tissue first 20 sq cm or less [facility] Work Phone: Start: 09-22-2016 End: 09-29-2016 Dalila subq tissue 20 sq cm/< Debridement, subcutaneous tissue first 20 sq cm or less [facility] Work Phone: Start: 11-30-2015 End: 11-30-2015 ISAC CHAU [facility] Work Phone: Start: 11-30-2015 End: 11-30-2015 Follow Up Appt 1 year Follow Up Appt 1 year [facility] Work Phone: Start: 11-30-2015 End: 11-30-2015 ISAC CHAU [facility] Work Phone: Start: 11-30-2015 End: 11-30-2015 Follow Up Appt 1 year Follow Up Appt 1 year [facility] Work Phone: Start: 05-25-2015 End: 05-25-2015 ISAC CHAU [facility] Work Phone: Start: 05-25-2015 End: 05-25-2015 Ecg routine ecg w/least 12 lds w/i&r EKG (In office) [facility] Work Phone: Start: 05-25-2015 End: 05-25-2015 Follow Up Appt 6 months Follow Up Appt 6 months [facility] Work Phone: Start: 05-25-2015 End: 05-25-2015 ISAC CHAU [facility] Work Phone: Start: 05-25-2015 End: 05-25-2015 Electrocardiogram, complete EKG (In office) [facility] Work Phone: Start: 05-25-2015 End: 05-25-2015 Follow Up Appt 6 months Follow Up Appt 6 months [facility] Work Phone: Start: 01-04-2015 End: 01-04-2015 Vascular Surgery Vascular Surgery Kwaku Moscoso, [address], [address], [place], [address] [facility] Work Phone: Start: 01-04-2015 End: 01-04-2015 Vascular Surgery Vascular Surgery Kwaku Pinedomelinda, [facility], [address] [place], [address] [facility] Work Phone: Start: 12-29-2014 End: 05-19-2015 *BMP *BMP [facility] Work Phone: Start: 12-29-2014 End: 12-29-2014 Ct angiography neck w/contrast/noncontrast CTA Neck [facility] Work Phone: Start: 12-29-2014 End: 12-29-2014 DJN DJN [facility] Work Phone: Start: 12-29-2014 End: 12-29-2014 Follow Up Appt 6 months Follow Up Appt 6 months [facility] Work Phone: Start: 12-29-2014 End: 05-19-2015 *BMP *BMP [facility] Work Phone: Start: 12-29-2014 End: 12-29-2014 Ct angiography, neck CTA Neck [facility] Work Phone: Start: 12-29-2014 End: 12-29-2014 DJN DJN [facility] Work Phone: Start: 12-29-2014 End: 12-29-2014 Follow Up Appt 6 months Follow Up Appt 6 months [facility] Work Phone: Start: 06-12-2014 End: 06-12-2014 24 hour holter monitor 24 hour holter monitor [facility] Work Phone: Start: 06-12-2014 End: 06-15-2014 Carotid duplex Carotid duplex [facility] Work Phone: Start: 06-12-2014 End: 06-12-2014 Follow Up Appt Other Follow Up Appt Other [facility] Work Phone: Start: 06-12-2014 End: 06-12-2014 24 hour holter monitor 24 hour holter monitor [facility] Work Phone: Start: 06-12-2014 End: 06-15-2014 Carotid duplex Carotid duplex [facility] Work Phone: Start: 06-12-2014 End: 06-12-2014 Follow Up Appt Other Follow Up Appt Other [facility] Work Phone: Start: 02-02-2014 End: 02-02-2014 Cardiac Rehab Cardiac Rehab [facility] Work Phone: Start: 02-02-2014 End: 02-02-2014 DJN TENZINN [facility] Work Phone: Start: 02-02-2014 End: 02-02-2014 Follow Up Appt 1 year Follow Up Appt 1 year [facility] Work Phone: Start: 02-02-2014 End: 02-02-2014 Cardiac Rehab Cardiac Rehab [facility] Work Phone: Start: 02-02-2014 End: 02-02-2014 DJN DJN [facility] Work Phone: Start: 02-02-2014 End: 02-02-2014 Follow Up Appt 1 year Follow Up Appt 1 year [facility] Work Phone: Start: 01-12-2014 End: 01-12-2014 *BMP *BMP [facility] Work Phone: Start: 01-12-2014 End: 01-12-2014 CBC W Auto Differential panel - Blood *CBC without Diff [facility] Work Phone: Start: 01-12-2014 End: 01-23-2014 Chest x-ray X-Ray, Chest, PA & Lateral [facility] Work Phone: Start: 01-12-2014 End: 01-12-2014 ISAC CHAU [facility] Work Phone: Start: 01-12-2014 End: 01-12-2014 Follow Up Appt 1 year Follow Up Appt 1 year [facility] Work Phone: Start: 01-12-2014 End: 01-12-2014 INR Coag RelTime (PPP) *PT/INR [facility] Work Phone: Start: 01-12-2014 End: 01-12-2014 Left Heart Cath Left Heart Cath [facility] Work Phone: Start: 01-12-2014 End: 01-12-2014 *BMP *BMP [facility] Work Phone: Start: 01-12-2014 End: 01-12-2014 CBC W Auto Differential panel - Blood *CBC without Diff [facility] Work Phone: Start: 01-12-2014 End: 01-23-2014 Chest x-ray X-Ray, Chest, PA & Lateral [facility] Work Phone: Start: 01-12-2014 End: 01-12-2014 Coagulation factor induced.INR assay in platelet poor plasma *PT/INR [facility] Work Phone: Start: 01-12-2014 End: 01-12-2014 ISAC CHAU [facility] Work Phone: Start: 01-12-2014 End: 01-12-2014 Follow Up Appt 1 year Follow Up Appt 1 year [facility] Work Phone: Start: 01-12-2014 End: 01-12-2014 Left Heart Cath Left Heart Cath [facility] Work Phone: Start: 2012 Hepatitis B Vaccine (1 of 3 - Risk 3-dose series) Hepatitis B Vaccine (1 of 3 - Risk 3-dose series) [facility] Start: 2012 RSV Vaccine (1 - 1-dose 60+ series) RSV Vaccine (1 - 1-dose 60+ series) [facility] Start: 2002 Influenza vaccination LUNG CANCER SCREENING [facility] Start: 2002 Screening for malignant neoplasm of lung Lung Cancer Screening [facility] Start: 2002 SHINGRIX VACCINE (1 of 2) SHINGRIX VACCINE (1 of 2) [facility] Start: 1997 COLOGUARD (FIT-DNA) COLOGUARD (FIT-DNA) [facility] Start: [address] COLONOGRAPHY [facility] Start: 1997 FECAL OCCULT BLOOD FECAL OCCULT BLOOD [facility] Start: 1997 Screening for malignant neoplasm of colon [facility] Start: 1997 SIGMOIDOSCOPY SIGMOIDOSCOPY [facility] Start: 1970 Anxiety Screening Anxiety Screening [facility] Alanine aminotransfe rase [Enzymatic activity/volume] in Serum or Plasma [facility] Albumin [Mass/volume ] in Serum or Plasma [facility] Alkaline phosphatase [Enzymatic activity/volume] in Serum or Plasma [facility] Anion gap in Serum o r Plasma [facility] Bacteria identified in Unspecified specimen by Anaerobe culture [facility] Bacteria identified in Unspecified specimen by Anaerobe culture [facility] Bacteria identified in Urine by Culture URINE CULTURE Microbiology Routine Acute cystitis with hematuria Ordered: 09/23/2022 [facility] Work Phone: Comment on above: Ordered: 09/23/2022 Bilirubin, total measurement [facility] BUN/Creatinine ratio [facility] Calcium [Mass/volume ] in Serum or Plasma [facility] Carbon dioxide, tota l [Moles/volume] in Central venous blood [facility] Creatinine [Mass/vol ume] in Serum or Plasma [facility] DBT Breast - bilater al screening ALEJANDRO SCREENING W BEN Radiology Routine Encounter for screening mammogram for malignant neoplasm of breast 06/03/2024 9:42 AM EDT [facility] Work Phone: End: 01-04-2026 DBT Breast - bilateral screening ALEJANDRO SCREENING W [facility] Radiology Routine Encounter for screening mammogram for malignant neoplasm of breast 1 Occurrences starting 12/05/2024 until 01/04/2026 [facility] Work Phone: Comment on above: 1 Occurrences starting 12/05/2024 until 01/04/2026 End: 07-05-2023 Diagnostic mammography computer-aided detcj uni ALEJANDRO DIAGNOSTIC RT Radiology Routine Abnormal mammogram 1 Occurrences starting 06/05/2022 until 07/05/2023 [facility] Work Phone: Comment on above: 1 Occurrences starting 06/05/2022 until 07/05/2023 Erythrocyte mean corpuscular volume determination [facility] Fungus identified in Unspecified specimen by Culture [facility] Fungus identified in Unspecified specimen by Fungus stain [facility] Glucose [Mass/volume ] in Serum or Plasma [facility] Hematocrit [Volume Fraction] of Blood [facility] Hemoglobin [Mass/vol ume] in Blood [facility] Leukocytes [#/volume ] in Blood [facility] Magnesium measurement [facility] Magnesium measurement [facility] End: 06-27-2024 ALEJANDRO DIAGNOSTIC RIGHT ALEJANDRO DIAGNOSTIC RIGHT Radiology Routine Abnormal mammogram 1 Occurrences starting 05/29/2023 until 06/27/2024 [facility] Work Phone: Comment on above: 1 Occurrences starting 05/29/2023 until 06/27/2024 End: 03-06-2024 ALEJANDRO SCREENING ALEJANDRO SCREENING Radiology Routine Encounter for screening mammogram for malignant neoplasm of breast 1 Occurrences starting 02/07/2023 until 03/06/2024 [facility] Work Phone: Comment on above: 1 Occurrences starting 02/07/2023 until 03/06/2024 Mean corpuscular hemoglobin concentration determination [facility] Mean corpuscular hemoglobin determination [facility] Measurement of renal function [facility] Neutrophil count [facility] Neutrophil percent differential count [facility] NM Heart Views W str ess and W radionuclide IV [facility] Patient Education [facility] Work Phone: Patient referral [facility] Work Phone: Platelets [#/volume] in Blood [facility] Potassium measurement [facility] Red blood cell count [facility] Red cell distributio n width determination [facility] Serum chloride measurement [facility] Sodium measurement [facility] Total protein measurement [facility] Urea nitrogen [Mass/volume] in Serum or Plasma [facility] Urine culture [facility] Urine culture [facility] End: 06-27-2024 US BREAST LTD RIGHT US BREAST LTD RIGHT Radiology Routine Abnormal mammogram 1 Occurrences starting 05/29/2023 until 06/27/2024 [facility] Work Phone: Comment on above: 1 Occurrences starting 05/29/2023 until 06/27/2024 End: 07-05-2023 Us breast uni real time with image limited US BREAST LTD RT Radiology Routine Abnormal mammogram 1 Occurrences starting 06/05/2022 until 07/05/2023 [facility] Work Phone: Comment on above: 1 Occurrences starting 06/05/2022 until 07/05/2023 US Carotid arteries [facility] Work Phone: US Carotid arteries [facility] US Carotid arteries [facility] US Carotid arteries [facility] End: 12-05-2023 US CAROTID ARTERIES [facility] US CAROTID ARTERIES [facility] Vascular Lab Routine Carotid atherosclerosis, bilateral 1 Occurrences starting 12/05/2022 until 12/05/2023 [facility] Work Phone: Comment on above: 1 Occurrences starting 12/05/2022 until 12/05/2023 US Heart [facility] Us soft tissue head & neck real time imge docm US THYROID/PARATHYROID Radiology Routine Multiple thyroid nodules 12/20/2023 9:38 AM EST [facility] Work Phone: Wound microscopy, cu lture and sensitivities [facility] Wound microscopy, cu lture and sensitivities [facility] Immunizations Immunization Date Immunization Notes Care Provider Lisa marie 09-05-2024 influenza, high dose seasonal, preservative-free Immunization [facility] Work Phone: [facility] 08-31-2023 influenza (HD-IIV4) vaccine, age 65+ yr, high dose, quadrivalent, PF (FLUZONE HIGH-DOSE) Immunization [place] Work Phone: [facility] Work Phone: 08-31-2023 influenza virus vaccine, unspecified formulation Rishi Taterison DO Work Phone: [facility] 06-04-2023 pneumococcal (PCV20) vaccine, 20 valent (PREVNAR 20) Rishi Vasquez DO Work Phone: [facility] Work Phone: 06-04-2023 pneumococcal Conjuga te, unspecified formulation Rishi Vasquez DO Work Phone: [facility] Work Phone: 09-09-2022 influenza, high-dose , quadrivalent vaccine (FLUZONE HIGH DOSE QUADRIVALENT) Immunization [place] Work Phone: [facility] 09-09-2022 influenza virus vaccine, unspecified formulation Rishi Taterison DO Work Phone: [facility] 09-10-2021 influenza, high-dose , quadrivalent vaccine (FLUZONE HIGH DOSE QUADRIVALENT) Yani Violeta IRON INSTALLER.SHIRT MARKER Work Phone: [facility] Work Phone: 09-10-2020 influenza, high-dose , quadrivalent vaccine (FLUZONE HIGH DOSE QUADRIVALENT) Yani Violeta IRON INSTALLER.SHIRT MARKER Work Phone: [facility] Work Phone: 09-02-2019 influenza, high dose seasonal, preservative-free Yani Violeta IRON INSTALLER.SHIRT MARKER Work Phone: [facility] Work Phone: 08-28-2018 influenza, high dose seasonal, preservative-free Yani Violeta IRON INSTALLER.SHIRT MARKER Work Phone: [facility] Work Phone: 08-28-2018 pneumococcal polysaccharide vaccine, 23 valent Yani Violeta IRON INSTALLER.[facility] Work Phone: [facility] Work Phone: 09-07-2017 influenza, high dose seasonal, preservative-free Yani Violeta IRON INSTALLER.[facility] Work Phone: [facility] Work Phone: 09-01-2016 influenza, injectabl e, quadrivalent, preservative free Dr. Rishi Vasquez Work Phone: [facility] 09-01-2016 influenza, seasonal, injectable Dr. Rishi Vasquez Work Phone: [facility] 09-11-2014 influenza, seasonal, injectable Yani Violeta IRON INSTALLER.[facility] Work Phone: [facility] Work Phone: 04-24-2013 tetanus toxoid, redu woody diphtheria toxoid, and acellular pertussis vaccine, adsorbed Yani Violeta IRON INSTALLER.[facility] Work Phone: [facility] Work Phone: 01-03-2013 pneumococcal conjuga te vaccine, 13 valent Yani Violeta IRON INSTALLER.[facility] Work Phone: [facility] Work Phone: 12-20-2012 pneumococcal polysaccharide vaccine, 23 valent Yani Violeta IRON INSTALLER.[facility] Work Phone: [facility] Work Phone: Payers Date Payer Category Payer Self-pay [id number] 2022 [place] [id number] 2022 Medicare [id number] 2020 Unknown MMO MMO MEDICARE SUPPLEMENT [id number] 2020-Present [phone] [address] [place] [address] Indemnity [id number] 2020 Unknown [id number] [id number]. [id number] 2017 Medicare MEDICARE MEDICAR E A AND B [id number] 2017-Present [phone] [place] [address] Medicare [id number]. [id number] 2017 Medicare [id number]. 1.13.159.2. [id number] 2017 Private Health Insurance [facility] [id number] Medicare [id number] Unknown [id number] Unknown [id number] 2.16840.1.834625.3.579.2. 462 Unknown [id number] 2.0.1.978033.3.579.2. 462 Unknown [id number] 2.16.840.1.607735.3.579.2. 462 Unknown [id number] 2.16840.1.841323.3.579.2. 462 Unknown [id number] 2.16.840.1.316310.3.579.2. 462 Unknown [id number] 2.16840.1.890040.3.579.2. 462 Unknown [id number] 2.840.1.298175.3.579.2. 462 Unknown [id number] 2.840.1.886914.3.579.2. 462 Unknown [id number] 2.840.1.037947.3.579.2. 462 Unknown [id number] 2.840.1.607034.3.579.2. 462 Unknown [id number] 2.840.1.948198.3.579.2. 462 Unknown [id number] 2.840.1.751429.3.579.2. 462 Unknown [id number] 2.840.1.284371.3.579.2. 462 Unknown [id number] 2.840.1.259946.3.579.2. 462 Unknown [id number] 2.840.1.691611.3.579.2. 462 Unknown [id number] 2.840.1.974044.3.579.2. 462 Unknown [id number] 2.840.1.095530.3.579.2. 462 Unknown [id number] 2.840.1.920559.3.579.2. 462 Unknown [id number] 2.840.1.666728.3.579.2. 462 Unknown [id number] 2.840.1.542528.3.579.2. 462 Unknown [id number] 2.840.1.332754.3.579.2. 462 Unknown [id number] 2.16.840.1.799853.3.579.2. 462 Unknown [id number] 2.16.840.1.120771.3.579.2. 462 Unknown [id number] 2.16.840.1.366947.3.579.2. 462 Unknown [id number] 2.16.840.1.795730.3.579.2. 462 Unknown [id number] 2.16.840.1.335293.3.579.2. 462 Unknown [id number] 2.16840.1.681128.3.579.2. 462 Unknown [id number] 2.840.1.845631.3.579.2. 462 Unknown [id number] 2.840.1.150718.3.579.2. 462 Unknown [id number] 2.840.1.071267.3.579.2. 462 Unknown [id number] 2.16840.1.336564.3.579.2. 462 Unknown [id number] 2.840.1.806791.3.579.2. 462 Unknown [id number] 2.840.1.422277.3.579.2. 462 Unknown [id number] 2.16840.1.306744.3.579.2. 462 Unknown [id number] 2.16840.1.007551.3.579.2. 462 Unknown [id number] 2.16840.1.494653.3.579.2. 462 Unknown [id number] 2.16840.1.713845.3.579.2. 462 Unknown [id number] 2.16840.1.354028.3.579.2. 462 Unknown [id number] 2.16.840.1.603524.3.579.2. 462 Unknown [id number] 2.16.840.1.214544.3.579.2. 462 Unknown [id number] 2.16.840.1.474762.3.579.2. 462 Unknown [id number] 2.16.840.1.008535.3.579.2. 462 Unknown [id number] 2.16.840.1.683946.3.579.2. 462 Unknown [id number] 2.16.840.1.788903.3.579.2. 462 Unknown [id number] 2.16.840.1.591030.3.579.2. 462 Unknown [id number] 2.16.840.1.011239.3.579.2. 462 Unknown [id number] 2.16.840.1.775017.3.579.2. 462 Unknown [id number] 2.16.840.1.297329.3.579.2. 462 Unknown [id number] 2.16.840.1.374561.3.579.2. 462 Unknown [id number] 2.16.840.1.254895.3.579.2. 462 Unknown [id number] 2.16.840.1.246155.3.579.2. 462 Social History Date Type Detail Facility [facility] Work Phone: Start: 02-07-2022 End: 02-12-2024 Tobacco smoking status [facility] Unknown if ever smoked [facility] Start: 03-19-2021 None [facility] Start: 03-19-2021 Alone [facility] Start: 03-19-2021 Cigarettes [facility] Start: 1950 Sex Assigned At Female C [facility] Start: 01-13-2013 End: 05-18-2025 Tobacco smoking status NHIS Ex-smoker [facility] Start: 12-20-1967 End: 12-20-2012 History of tobacco use Current smoker [facility] Start: 12-20-1967 End: 12-20-2012 History of tobacco use Cigarette Smoker [facility] Start: 01-13-2013 End: 09-05-2024 Cigarettes smoked current (pack per day) - Reported 0.5 [facility] Start: 01-13-2013 End: 03-27-2025 Tobacco use and exposure Smokeless tobacco non-user [facility] Start: 12-02-2021 End: 03-27-2025 Alcohol intake Current non-drinker of alcohol (finding) [facility] Start: 12-01-2021 End: 12-02-2022 History SDOH Alcohol Frequency 1 [facility] Start: 12-01-2021 History SDOH Alcohol Std Drinks 98 [facility] Start: 12-01-2021 End: 12-02-2022 History SDOH Social Connections Phone 5 [facility] Start: 12-01-2021 End: 12-02-2022 History SDOH Social Connections Scientology 2 [facility] Start: 12-01-2021 End: 12-02-2022 History SDOH Social Connections Living 4 [facility] Start: 12-01-2021 End: 12-02-2022 History SDOH Physical Activity MPS 6 [facility] Start: 11-26-2019 Education 12 [facility] Start: 02-25-2022 End: 08-15-2022 Exposure to SARS-CoV-2 (event) Not sure [facility] Work Phone: Start: 12-02-2022 History SDOH Alcohol Std Drinks 0 [facility] Start: 12-01-2022 End: 09-05-2024 Social connection and isolation panel [facility] Do you belong to any clubs or organizations such as scientology groups, unions, fraternal or athletic groups, or school groups? No [facility] Are you now , , , , never or living with a partner? [facility] How often to you hav e a drink containing alcohol? Never [facility] How many standard drinks containing alcohol do you have on a typical day? Patient does not drink [facility] Do you feel stress - tense, restless, nervous, or anxious, or unable to sleep at night because your mind is troubled all the time - these days [OSQ] Only a little [facility] (I/We) worried niurka er (my/our) food would run out before (I/we) got money to buy more. Never true [facility] Start: 08-26-2019 Gender identity Identifies as female gender (finding) [facility] Start: 08-16-2024 Sexual orientation Heterosexual (augusta joy) [facility] Do you feel stress - tense, restless, nervous, or anxious, or unable to sleep at night because your mind is troubled all the time - these days [OSQ] Not at all [facility] Start: 02-17-2025 End: 03-07-2025 Sex Female (finding) [facility] NEGATED: Highlighted row [facility] Medical Equipment Procedure Code Equipment Code Equipment Original Text Equipment Identifier Dates Debridement, wound FDA Start: 05-20-2025 Debridement, wound FDA Start: 05-20-2025 [id number], [id number] Start: 02-15-2022 End: 06-04-2024 Comment on above: Test blood sugar(s) one times daily. Dx: Other DM Code E11.51 Insulin: No Use as instructed Goals Date Patient Goal Desired Activity /State Functional Status Date Assessment Result Facility 05-21-2025 Functional status Chair [facility] Work Phone: 05-18-2025 Functional status Active [employer] [facility] Work Phone: 03-20-2025 Functional status Up ad praveen;Chair [facility] Work Phone: 03-19-2025 Functional status Well [facility] Work Phone: 03-11-2025 [...] 06/09/2015 3:01 PM Meka Delgado RN No [facility] 06-09-2015 Are you blind, or do you have serious difficulty seeing, even when wearing glasses No 06/09/2015 3:01 PM Meka Delgado RN No [facility] 06-09-2015 Do you have serious difficulty walking or climbing stairs No 06/09/2015 3:01 PM Meka Delgado RN No [facility] 06-09-2015 Do you have difficul ty dressing or bathing No 06/09/2015 3:01 PM Meka Delgado RN No [facility] 06-09-2015 Because of a physica l, mental, or emotional condition, do you have difficulty doing errands alone such as visiting a physician's office or shopping No 06/09/2015 3:01 PM Meka Delgado RN No [facility] Mental Status Date Assessment Result Facility 05-21-2025 Cognitive function Voice/Name [facility] Work Phone: 05-18-2025 Cognitive function Voice/Name [facility] Work Phone: 03-20-2025 Cognitive function [facility] Work Phone: 03-11-2025 [facility] Work Phone: 01-20-2022 Cognitive function Voice/Name [facility] Work Phone: 06-09-2015 Because of a physica l, mental, or emotional condition, do you have serious difficulty concentrating, remembering, or making decisions No 06/09/2015 3:01 PM Meka Delgado RN No [facility] Clinical Notes 11-14-2017 to 05-20-2025 Note Date & Type Note Facility 05-20-2025 Consult note Note Date/Time May 20, 2025 9:19p m [facility] Medical Records Department [address] [place] [address] Anesthesia Postop Eval II 05/20/258 MR#: [id number] Acct: [id number] Name: GELY NEWMAN Rep #:[id number] : 1950 75 From: Zachary Rodriguez MD PCP: Dr. 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.ACAR Spontaneous unlabored Yes 05/20/25 16:57 WATER REGULATOR AND VALVE REPAIRER.ACAR respirations Mental status Awake,Calm 05/20/25 16:57 WATER REGULATOR AND VALVE REPAIRER.ACAR nausea No 05/20/25 16:57 WATER REGULATOR AND VALVE REPAIRER.ACAR Vomiting No 05/20/25 16:57 WATER REGULATOR AND VALVE REPAIRER.ACAR Anesthesia Postop Eval I: Fluid Summary Crystalloid volume administer 200 05/20/25 16:57 WATER REGULATOR AND VALVE REPAIRER.ACAR (ml) Colloids volume administered ( ml) Blood Product volume administered (ml) Total IV fluid infused 200 05/20/25 16:57 WATER REGULATOR AND VALVE REPAIRER.ACAR Anesthesia Postop Eval I: Summary Notes Anesthesia Complication No 05/20/25 16:57 WATER REGULATOR AND VALVE REPAIRER.ACAR Anesthesia Complication Comment: Post-operative progress note Anesthesia: Postop Eval II Evaluation Mental status: Awake and Calm Pain Level: 1 nausea: No Vomiting: No Complications Anesthesia Complication: No 05/20/252118 <Electronically signed by Zachary mcguire MD> Date _ Zachary Rodriguez MD Cosigner Signature: Date CC: ~ Signed [facility] Work Phone: 1(802) 228-927107-02-2025 Consult note Author Jw Victoria [facility] Note Date/Time May 20, 2025 4:57p [facility] Medical Records Department [address] [place] [address] Anesthesia Postop Eval I 05/20/25 1657 MR#: [id number] Acct: [id number] Name: GELY NEWMAN Rep #:[id number] : 1950 75 From: Jw law WATER REGULATOR AND VALVE REPAIRER PCP: Dr. Rishi Vasquez, DO Status:AD M IN Y Race: C Location: MS3 MS302 -1 Anesthesia: Postop Eval I Current Vital Signs [...] by Jw segal CRNA> Date _ Jw Victoria WATER REGULATOR AND VALVE REPAIRER Cosigner Signature: Date CC: ~ Signed [facility] Work Phone: 1(610) 882-224607-02-2025 Progress note Author Michaela Joshua [facility] Note Date/Time May 20, 2025 4:41p m [facility] Medical Records Department [address] [place] [address] Progress Note - Hospitalist 05/20/25 0733 MR#: [id number] Acct: [id number] Name: GELY NEWMAN Rep #:[id number] : 1950 75 From: Michaela Joshua DO PCP: Dr. Rishi Vasquez, DO Status:AD M IN Location: MS3 HP180-0 Reason for Visit Reason for Visit: Generalized [...] on admission Charges/Coding Visit Charges Inpatient E&M: 80371 Subs Hosp L2 05/20/25 1641 <Electronically signed by Michaela Joshua DO> Cosigner Signature (if applicable): CC: ~ Signed [facility] Work Phone: 1(699) 956-573807-02-2025 Consult note Author Zachary Bannerkenneth [facility] Note Date/Time May 20, 2025 3:37p m [facility] Medical Records Department [address] [place] [address] Pre-Anesthesia Evaluation 05/20/25 1526 MR#: [id number] Acct: [id number] Name: GELY NEWMAN Rep #:[id number] : 1950 75 From: Zachary Rodriguez MD PCP: Dr. Rishi Vasquez, Status:AD M IN Y Race: C Location: [facility] MS302 -1 ASA Classification* ASA Classification ASA [...] left ankle. 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 Hx Hospitalization Yes: 02/2025 FELL 05/08/25 10:01 [...] take am of surgery PONV PONV - 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: PONV - 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 Female HX of Motion Sickness HX of N/V After Surgery Non-Smoker Duration of Surgery greater than 60 minutes Number of Risk Factors PONV Score Height & Weight Height & Weight: Anesthesia: Height & Weight Height 5 ft 6 in 05/20/25 12:58 Weight: 73.2 kg 05/20/25 12:58 Body Mass Index (BMI) 26.0 05/20/25 12:58 Respiratory Assessment Respiratory Assessment - 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: Respiratory Tract Infection Hx - 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 Hx Respiratory Tract Infection No 05/20/25 08:47 STOP Sleep Apnea STOP Sleep Apnea - 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: STOP Sleep Apnea - 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 Hx Hypertension Yes 05/18/25 11:21 Hx Sleep [...] 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 Use History - 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: Tobacco Use History - 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 Tobacco Use Cigarettes 04/02/24 09:13 Smoking Status Former smoker 05/18/25 02:15 Hx Tobacco Use No 05/18/25 02:15 Years Smoking Packs Smoked per Day Smoking Cessation Date was Yes - quit smoking within 15 05/18/25 02:15 within the last 15 years years Hx Smoking Cessation Date 01/01/13 05/18/25 02:15 Hx Smoking Cessation No 05/18/25 02:15 Counseling Hematologic Medial History Hematologic Hx - 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 Specify any problems Hx of Preganancy in last 3 N/A 05/18/25 02:15 Months Nurse Filling Out Transfusion LSMITH 05/18/25 02:15 & Questions: Date: 05/18/25 05/18/25 02:15 Time: 03:01 05/18/25 02:15 Patient unable to answer at this time (ie. confused, unrespo /Reproduction History /Reproductive History - 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: /Reproductive Hx- 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 Hx Now No 05/19/25 03:12 Gestational Age (in weeks): EDC: Hx Hx Para Hx Section SAB No 05/18/25 03:12 Active Medications Active Medications: Current Medications Generic Name Dose Route Start Last Admin Trade Name Freq PRN Reason Stop Dose Admin Acetaminophen 650 mg 05/18/25 03:19 05/20/25 03:32 Acetaminophen 325 Mg Tablet PO 650 mg Q4H PRN PRN Administration Fever, pain 1-10/10 Al Hydroxide/Mg Hydroxide 30 ml 05/18/25 03:19 [...] 75 Mg Tablet PO Not Given DAILY HADLYE Collagenase 1 applic 05/18/25 10:00 05/20/25 08:44 Collagenase 30gm Tube TOPICAL Not Given DAILY HADLEY Protocol Ferrous Sulfate 325 mg 05/18/25 12:00 05/20/25 11:44 Ferrous Sulfate 325 Mg Tablet PO Not Given DAILY@1200 HADLEY Glucagon 1 mg 05/18/25 03:19 Glucagon 1 [...] 100 Unit/Ml Insuln.Pen SC Not Given ACHS [facility] Protocol L-Arginine/L-Glutamine/Calcium HMB 1 packet 05/18/25 17:00 05/20/25 06:39 Davion (Unflavored) Packet [facility] Linez[facility] 600 mg 05/18/25 22:00 05/20/25 11:23 Linezolid 600 Mg Tablet PO Not Given BID [facility] Melatonin 3 mg 05/18/25 03:19 Melatonin 3 Mg Tablet PO QHS PRN PRN INSOMNIA Metaxalone 400 mg 05/20/25 13:59 Metaxalone 800 Mg Tablet PO TID PRN MUSCLE SPASM Metoprolol Succinate 12.5 mg 05/19/25 13:00 05/20/25 09:39 Metoprolol(Xl)Succ 25 Mg Tablet PO Not Given DAILY [facility] Protocol Ondansetron HCl 4 mg 05/18/25 03:19 Ondansetron 4 Mg/2 Ml Vial IV Q8H PRN PRN NAUSEA/VOMITING Pregabalin 100 mg 05/19/25 15:30 05/20/25 13:40 Pregabalin 50 Mg Capsule PO Not Given TID [facility] Prochlorperazine Edisylate 5 mg 05/18/25 03:19 Prochlorperazine [...] edema History of echocardiogram Fall 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 Work Phone: 1(545) 928-690307-02-2025 Procedure [facility] 05-20-2025 Progress note Author Jason Polk [facility] Note Date/Time May 20, 2025 12:06 pm [facility] Medical Records Department [address] [place] [address] Progress Note - Infect Disease 05/20/25 1204 MR#: [id number] Acct: [id number] Name: GELY NEWMAN Rep #:[id number] : 1950 75 From: Jason Polk MD PCP: Dr. Rishi Vasquez, DO Status:AD M IN Location: [place] [address] ID ID: Route of nutrition/ use of [...] Cosigner Signature (if applicable): CC: ~ Signed [facility] Work Phone: 1(279) 643-831707-02-2025 Progress note Author Patel Irene [facility] Note Date/Time May 20, 2025 7:53a m [facility] Medical Records Department [address] [place] [address] Progress Note - Surgery 05/20/25 0746 MR#: [id number] Acct: [id number] Name: GELY NEWMAN Rep #:[id number] : 1950 75 From: Patel Abraham PM PCP: Dr. Rishi Vasquez, DO Status:AD M IN Location: [place] [address] Subjective Subjective Ms. Newman is a 75-year-old [...] 2 diabetes mellitus with foot ulcer: 05/20/25 0753 <Electronically signed by Patel Irene DPM> Cosigner Signature (if applicable): CC: ~ Signed [facility] Work Phone: 1(947) 790-844707-01-2025 Progress note Author Jason Polk [facility] Note Date/Time May 19, 2025 2:07p m [facility] Medical Records Department [address] [place] [address] Progress Note - Infect Disease 05/19/25 1406 MR#: [id number] Acct: [id number] Name: GELY NEWMAN Rep #:[id number] : 1950 75 From: Jason Polk MD PCP: Dr. Rishi Vasquez, DO Status:AD M IN Location: ICU CVICU20 1-1 ID ID: Route of nutrition/ use of supplements: [] Nutritional Intake: [] IV Site: [] Nlul Catheter: [] Patient is alert and responsive. [...] for debridement of her diabetic foot wounds. 05/19/25 1407 <Electronically signed by Jason Polk MD> Cosigner Signature (if applicable): CC: ~ Signed [facility] Work Phone: 1(500) 338-132807-01-2025 Progress note Author Michaela Joshua [facility] Note Date/Time May 19, 2025 12:55 pm [facility] Medical Records Department [address] [place] [address] Progress Note - Hospitalist 05/19/25 1246 MR#: [id number] Acct: [id number] Name: GELY NEWMAN Rep #:[id number] : 1950 75 From: Michaela Joshua DO PCP: Dr. Rishi Vasquez, DO Status:AD M IN Location: ICU CVICU20 1-1 Reason for Visit Reason for Visit: Generalized [...] 73.3 H, Lymph % (Auto) 13.7 L, [place] % (Auto) 10.4 H, Eos % (Auto) [...] or other follow up imaging. Reading Location: [place] [address] Physical Exam Const alert, oriented x3 and [...] on admission Charges/Coding Visit Charges Inpatient E&M: 09687 Subs Hosp L2 05/19/25 1254 <Electronically signed by Michaela Joshua DO> Cosigner Signature (if applicable): CC: ~ Signed [facility] Work Phone: 1(598) 369-990907-01-2025 Progress note Author Jacinto Tamez [facility] Note Date/Time May 19, 2025 8:28a m [facility] Medical Records Department [address] [facility] [place] [address] Progress Note - Property Man 05/19/25 0637 MR#: [id number] Acct: [id number] Name: GELY NEWMAN Rep #:[id number] : 1950 75 From: Jacinto Tamez DO [...] noted above. This note was generated with [employer] dictation software. It may contain incorrectwords, spelling, [...] 73.3 H, Lymph % (Auto) 13.7 L, [place] % (Auto) 10.4 H, Eos % (Auto) [...] with CT. Degenerative bony changes Reading Location: [facility] Chest CTA 05/18/25 07:26 IMPRESSION: There is [...] or other follow up imaging. Reading Location: [facility] Physical Exam Const alert, oriented x3 and [...] affect normal Charges/Coding Visit Charges Inpatient E&M: 43145 Subs Hosp L2 05/19/25 0828 <Electronically signed by Jacinto Tamez DO> Cosigner Signature (if applicable): CC: ~ Signed [facility] Work Phone: 1([phone]) 207-485007-01-2025 Consult note Author Patel Irene [facility] Note Date/Time May 19, 2025 7:01a m [facility] Medical Records Department [address] [place] [address] Consultation 05/18/25 0659 MR#: [id number] Acct: [id number] Name: GELY NEWMAN Rep #:[id number] : 1950 75 From: Patel Abraham PM [...] by vascular surgery. She presented to the [facility] ED on 05/18/2025 with generalized weakness, fatigue, [...] No other pedal complaints at this time. [facility] Medical History (Updated 05/18/25 @ 16:[address] 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 [...] stage 3 Atherosclerosis of coronary artery of [place] heart without angina pectoris Hyperlipidemia Peripheral vascular [...] D PRN rash 05/07/25 Unknown History powder ([facility]) acetaminophen 650 mg 650 mg PO Q12H PRN pain 04/20 Unknown History tablet,extended release amlodipine 5 mg tablet 5 mg PO DAILY HTN #90 tabs 0 05/12/25 Unknown Rx metoprolol succinate 25 mg 12.5 mg (1/2 x 25 mg) PO DA NHI 05/12/25 Unknown Rx tablet,extended release 24 hr [...] 80.8 H, Lymph % (Auto) 7.4 L, [place] % (Auto) 10.6 H, Eos % (Auto) [...] Clarity Cloudy, Urine pH 5.0, Ur Specific [place] 1.020, Urine Protein 100 H, Urine Glucose [...] 76.2 H, Lymph % (Auto) 8.1 L, [place] % (Auto) 14.6 H, Eos % (Auto) [...] IMPRESSION: No acute chest findings. 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 Soft tissue swelling, without obvious soft tissue gas. Possible cellulitis. Reading Location: [facility] 05/19/25 0701 <Electronically signed by Patel Irene DPM> Cosigner Signature (if applicable): CC: Dr. Rishi Vasquez DO; Dr. Jerri Castillo, DO~ Signed [facility] Work Phone: 1(497) 148-146706-30-2025 Progress note Author Michaela Joshua [facility] Note Date/Time May 18, 2025 4:24 pm [facility] Medical Records Department [address] [place] [address] Progress Note - Hospitalist 05/18/25713 MR#: [id number] Acct: [id number] Name: GELY NEWMAN Rep #:[id number] : 1950 75 From: Michaela Joshua DO PCP: Dr. Rishi Vasquez DO Status:AD M IN Location: ICU CVICU 1- Reason for Visit Reason for Visit: [...] 80.8 H, Lymph % (Auto) 7.4 L, [place] % (Auto) 10.6 H, Eos % (Auto) [...] Clarity Cloudy, Urine pH 5.0, Ur Specific [place] 1.020, Urine Protein 100 H, Urine Glucose [...] 76.2 H, Lymph % (Auto) 8.1 L, [place] % (Auto) 14.6 H, Eos % (Auto) [...] IMPRESSION: No acute chest findings. 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 Soft tissue swelling, without obvious soft tissue gas. Possible cellulitis. Reading Location: [place] [address] Assessment & Plan Assessment/Plan (1) Non-pressure chronic [...] Cosigner Signature (if applicable): CC: ~ Signed [facility] Work Phone: 1(118) 690-341006-30-2025 Consult note Author Russell Clement [facility] Note Date/Time May 18, 2025 1:07 pm [facility] Medical Records Department [address] [place] [address] Consultation - Surgical 05/18/25 1257 MR#: [id number] Acct: [id number] Name: GELY NEWMAN Rep #:[id number] : 1950 75 From: Russell Clement MD PCP: Dr. Rishi Vasquez DO Status:AD M IN Location: ICU CVICU20 1-[address] Russell Clement MD on 05/18/25 at 1307 Visit Charges Inpatient E&M: 14973 Init Hosp L3 05/18/25 1307<Electronically signed by Russell Clement MD> Cosigner Signature (if applicable): cc: Dr. Rishi Vasquez DO; Dr. 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 [facility] Medical History (Updated 05/18/25 @ 13:[address] 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 Soft tissue swelling, without obvious soft tissue gas. Possible cellulitis. Reading Location: [facility] Abdomen/Pelvis CT 05/18/25 07:26 IMPRESSION: Cholelithiasis, [...] with CT. Degenerative bony changes Reading Location: [id number] Chest CTA 05/18/25 07:26 IMPRESSION: There is a 0.5 cm solid nodule in the right mid lung, image 131/244. There is a 0.4 cm solid nodule in the right mid lung, image 115/244. Follow-up is recommended. There is atelectasis with a trace effusion at the left lung base. There is no visible pulmonary embolus. [facility] 05/18/25 1306 <Electronically signed by Russell Clement MD> Cosigner Signature (if applicable): CC: Dr. Rishi Vasquez, ; Dr. Jerri Castillo DO~ Signed [facility] Work Phone: 1(351) 192-557706-30-2025 Radiology Diagnostic study [facility]06-30-2025 Consult note Author Jacinto Tamez [facility] Note Date/Time May 18, 2025 12:3 4pm [facility] Medical Records Department [address] [place] [address] Consultation - Property Man 05/18/25 0827 MR#: [id number] Acct: [id number] Name: GELY NEWMNA Rep #:[id number] : 1950 75 From: Jacinto Tamez DO [...] noted above. This note was generated with [employer] dictation software. It may contain incorrectwords, spelling, [...] patient has never been evaluated by a revolving field assembler, nor has she ever been formally diagnosed [...] resulted in her transfer to the ICU. [facility] Medical History (Updated 05/18/25 @ 07:[address] 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 Soft tissue swelling, without obvious soft tissue gas. Possible cellulitis. Reading Location: [facility] Sepsis Attestation Sepsis Alert: Yes Sepsis Attestation: [...] responsive hypotension Charges/Coding Visit Charges Inpatient E&M: 06250 Init Hosp L3 05/18/25 1234 <Electronically signed by Jacinto Tamez DO> Cosigner Signature (if applicable): CC: Dr. Rishi Vasquez DO; Dr. Jerri Castillo DO~ Signed [facility] Work Phone: [phone]) [phone] Consult note Author Jason Polk [facility] Note Date/Time May 18, 2025 12:3 3pm [facility] Medical Records Department [address] [place] [address] Consultation - Infectious Dx 05/18/25 1227 MR#: [id number] Acct: [id number] Name: GELY NEWMAN Rep #:[id number] : 1950 75 From: Jason Polk MD PCP: Dr. Rishi Vasquez DO Status:AD M [...] care note reviewed. Denies any gastrointestinal distress. [facility] Medical History (Updated 05/18/25 @ 07:[address] 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 Soft tissue swelling, without obvious soft tissue gas. Possible cellulitis. [facility] Abdomen/Pelvis CT 05/18/25 07:26 IMPRESSION: Cholelithiasis, [...] with CT. Degenerative bony changes Reading Location: [id number] Chest CTA 05/18/25 07:26 IMPRESSION: There is a 0.5 cm solid nodule in the right mid lung, image 131/244. There is a 0.4 cm solid nodule in the right mid lung, image 115/244. Follow-up is recommended. There is atelectasis with a trace effusion at the left lung base. There is no visible pulmonary embolus. Reading Location: [facility] 05/18/25 1233 <Electronically signed by Jason Polk MD> Cosigner Signature (if applicable): CC: Dr. Rishi Vasquez DO; Dr. Jerri Castillo DO~ Signed [facility] Work Phone: 1(450) 182-261806-30-2025 Radiology Diagnostic study [facility]06-30-2025 Radiology Diagnostic study [facility]06-30-2025 Discharge summary Author Jerri Castillo [facility] Note Date/Time May 18, 2025 7:01 am [facility] Medical Records Department [address] [place] [address] Emergency Department Summary 05/17/25 MR#: [id number] Acct: [id number] Name: GELY NEWMAN Rep #:[id number] : 1950 75 From: Jerri Castillo DO PCP: Dr. Rishi Vasquez, DO Status:AD M IN Location: MS3 [id number] HPI History of Present Illness Chief Complaint: [...] she was started on antibiotics by her indoor landscape architect Dr. Irene. Patient unsure the name of the antibiotic. 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 [...] stage 3 Atherosclerosis of coronary artery of [place] heart without angina pectoris Hyperlipidemia Peripheral vascular [...] D PRN rash 05/07/25 Unknown History powder ([facility]) acetaminophen 650 mg 650 mg PO Q12H PRN pain 04/20 Unknown History tablet,extended release amlodipine 5 mg tablet 5 mg PO DAILY HTN #90 tabs 0 05/12/25 Unknown Rx metoprolol succinate 25 mg 12.5 mg (1/2 x 25 mg) PO DA NHI 05/12/25 Unknown Rx tablet,extended release 24 hr [...] 80.8 H Lymph % (Auto) 7.4 L [place] % (Auto) 10.6 H Eos % (Auto) [...] Clarity Cloudy Urine pH 5.0 Ur Specific [place] 1.020 Urine Protein 100 H Urine Glucose [...] IMPRESSION: No acute chest findings. 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 Soft tissue swelling, without obvious soft tissue gas. Possible cellulitis. Reading Location: [place] [address] Discharge Plan Triage Chief Complaint: Fall ED [...] DO [Primary Care Provider] - Print Language: French Disposition Disposition: Acute Care Hospital [facility] What to do if you have Problems For any increased pain, shortness of breath, bleeding, nausea or vomiting, chestpain, or any unexpected problems, contact your Primary Care Provider. Call [facility] ([phone]) or report to the closest Emergency Room. Call 911 if necessary. 05/18/25 0701 <Electronically signed by Jerri Castillo DO> Cosigner Signature (if applicable): CC: Dr. Rishi Vasquez DO ~ Signed [facility] Work Phone: 1(183) [phone] [facility]06-30-2025 Consult note Author Rick Barth [facility] Note Date/Time May 18, 2025 3:45 am [facility] Medical Records Department [address] [place] [address] Pharmacokinetic/Renal -Consult 05/18/25 0344 MR#: [id number] Acct: [id number] Name: GELY NEWMAN Rep #:[id number] : 1950 75 From: Rick Anders od PCP: Dr. Rishi Vasquez, Status:AD M IN Y Location: [facility] VG243-4 Consult Antibiotic Management Pharmacy has been consulted [...] and time ordered]: 05/20 @ 0300 05/18/25 0345 <Electronically signed by Rick ramirez> Date _ Rick Barth Cosigner Signature (if applicable): Date CC: ~ Signed [facility] Work Phone: [phone]) 376-612206-30-2025 History and physical note Author Maddie Merchant [facility] Note Date/Time May 18, 2025 2:32 am [facility] Medical Records Department [address] [place] [address] H&P Exam - Hospitalist 05/18/25 0201 MR#: [id number] Acct: [id number] Name: GELY NEWMAN Rep #:[id number] : 1950 75 From: Maddie Merchant MD PCP: Dr. Rishi Vasquez, DO Status:AD M IN Location: [facility] HU988-4 HPI - General General Date of Admission: [...] has been rubbing who presents to the [facility] ED on 05/18/2025 with generalized weakness, fatigue, [...] gas with possibly cellulitis with postoperative changes. 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 Soft tissue swelling, without obvious soft tissue gas. Possible cellulitis. Reading Location: [place] [address] Assessment & Plan Assessment/Plan (1) Acute UTI: [...] has been rubbing who presents to the [facility] ED on 05/18/2025 with generalized weakness, fatigue, [...] add if deferred. #15. CODE status: Patient VICTOR MANUEL she thinks is her sister but she is uncertain and she believes living will may be in place. Discussed CODE status at length including difference between FULL code, DNR-CCA and DNR-CC status. Following discussions about the differences in these status, requested Full Code status. Advanced Care Planning Face to Face Time: 16 minutes. Charges/Coding Visit Charges Inpatient E&M: 24764 Init Hosp L3 Procedures Hospitalists Procedures: 46283 Advncd Care Plan 30 Min 05/18/25 0232 <Electronically signed by Maddie Merchant MD> Cosigner Signature (if applicable): CC: Dr. Maddie Merchant MD; Dr. Rishi Vasquez, DO~ Signed [facility] Work Phone: 1(415) 321-588306-29-2025 Radiology Diagnostic study [facility]06-29-2025 Radiology Diagnostic study [facility]06-19-2025 Telephone encounter Note* Telephone Encounter - Lebron Jacome RN - 05/07/2025 1:07 PM EDT Pt phoned back and states she was able to get 5 days of glipizide from pharmacy. Pt asking pcp to change the medication since her insurance does not cover it. [facility]06-19-2025 Miscellaneous Notes* Telephone Encounter - Lebron Jacome [...] this plan. Prior Authorization not available. Payer: [employer] [phone] Note from payer: This drug/product is not covered under the pharmacy benefit. Prior Authorization is not available. * Telephone Encounter - Any Rodriguez LPN - 05/06/2025 1:17 PM EDT Electronic PA requested. * Telephone Encounter - Sara Solis RN - 05/06/2025 12:25 PM EDT Pt called in and reports she went in to [facility] and they told her that her insurance doesn't cover the Glipizide 5 mg tablets without a PA. Pt states she got them before and her insurance covered them. Pt states she paid out of pocket for 5 days worth of pills. Prior Authorization Documentation Prior authorization requested for the following medication: Medication: Glipizide Provider: Sushma Escobedo NP Insurance Company Name: [employer] Phone number:[phone] Patient ID number: [id number] Pharmacy Name: [facility] Telephone number: [phone] documented in [facility] Telephone encounter Note * Telephone Encounter - Sara Solis RN - 05/07/2025 11:28 AM EDT Called and left a detailed voicemail notifying patient of providers message. Clinic phone number was left for the patient to call back if she would like the provider to change her medication. Sara Solis RN [facility]06-18-2025 Telephone encounter Note* Telephone Encounter - Rishi Vasquez DO - 05/06/2025 8:20 PM EDT Agree with below Rishi Vasquez DO [facility]06-18-2025 Telephone encounter Note* Telephone Encounter - Any Rodriguez LPN - 05/06/2025 2:55 PM EDT Called pt and message left she can either ask the pharmacy to run the rx with a discount card or call back and ask the provider to change the medicine. [facility]06-18-2025 Telephone encounter Note* Telephone Encounter - Any Rodriguez LPN - 05/06/2025 1:20 PM EDT Images from the original note were not included. This is the PA response. Close reason: Product not covered by this plan. Prior Authorization not available. Payer: [employer] [phone] Note from payer: This drug/product is not covered under the pharmacy benefit. Prior Authorization is not available. [facility]06-18-2025 Telephone encounter Note* Telephone Encounter - Any Rodriguez LPN - 05/06/2025 1:17 PM EDT Electronic PA requested. [facility]06-18-2025 Telephone encounter Note* Telephone Encounter - Sara Solis RN - 05/06/2025 12:25 PM EDT Pt called in and reports she went in to [facility] and they told her [...] Escobedo NP Insurance Company Name: [employer] Phone number:[phone] Patient ID number: [id number] Pharmacy Name: [facility] Telephone number: [phone] [facility]06-12-2025 Instructions* Patient Instructions* Ld Escobedo APRN.MARK - 04/30/2025 11:41 AM EDT Send me a blood sugar log in 2 weeks after taking the 10mg of glucotrol xl (5mg twice per day) Follow up as already scheduled with Dr Vasquez documented in this encounterC[facility]06-12-2025 NoteHNO ID: [id number] Author: LD ESCOBEDO APRN.CNP Service: ? Author [...] wound dressing changes - Recent visit to indoor landscape architect Dr. Irene, who discussed potential surgery for [...] mellitus (HCC) Coronary artery disease Dr. Ch Life Guard, 90% blockage- unable to do stenting Diabetes mellitus type 2 in obese Diabetic feet (HCC) Gangrene (HCC) 2012 RIGHT FOOT Hypertension Mild non proliferative diabetic retinopathy (HCC) 06/11/2013 Both eyes, Dr. Ortiz [facility]-03/25/2020 left mild, right moderate Multiple thyroid nodules last US 01/2015 Peripheral artery disease due to Diabetes mellitus, Dr. Kwaku Moscoso Rotator cuff syndrome of left shoulder Dr. Regi Montes [facility] PAST SURGICAL HISTORY Procedure Laterality Date [...] CUFF REPAIR 03/11/[address] [facility] SLCTV CATHJ EA 1ST ORD ABDL [...] Take 1 tablet by mouth once daily. Qsjrmbie-Rtwr-Qsm-Folic Acid 18-0.4 mg tab Take 1 tablet by mouth once daily. omega-3 fatty acids 1,000 mg cap Take 1 capsule by mouth once d (more content not included)...[facility]06-12-2025 History of Present illness Narrative* Ld Escobedo APRN.SHIRT MARKER - 04/30/2025 11:26 AM EDT HISTORY OF [...] wound dressing changes - Recent visit to indoor landscape architect Dr. Irene, who discussed potential surgery for [...] mellitus (HCC) Coronary artery disease Dr. Ch Life Guard, 90% blockage- unable to do stenting Diabetes mellitus type 2 in obese Diabetic feet (HCC) Gangrene (HCC) 2012 RIGHT FOOT Hypertension Mild non proliferative diabetic retinopathy (HCC) 06/11/2013 Both eyes, Dr. Ortiz [facility]-03/25/2020 left mild, right moderate Multiple thyroid nodules last US 01/2015 Peripheral artery disease due to Diabetes mellitus, Dr. Kwaku Moscoso Rotator cuff syndrome of left shoulder Dr. Deluna [facility] PAST SURGICAL HISTORY Procedure Laterality Date [...] 04-08-13 ROTATOR CUFF [facility]PA[facility] PEL/LXTR [...] Take 1 tablet by mouth once daily. Swmsxecq-Iljv-Kul-Folic Acid 18-0.4 mg tab Take 1 tablet [...] as needed for worsening/no improvement. Ld Escobedo APRN.SHIRT MARKER Recording using [email or web address] software for draft documentation of the visit was discussed with the patient/authorized printing supplies sales representative; all questions welcomed and answered. Patient/authorized printing supplies sales representative agreed to proceed documented in this encounterC[facility]06-[facility]-20[facility] Radiology Diagnostic study note [facility] Imaging Services [address] [place], [place] [address] Thyroid MR#: [id number] Acct: [id number] Name: GELY NEWMAN Rep #: [id number] : 1950 F 75 From: Courtney Bright MD PCP: Dr. Rishi Vasquez, DO Status: RE G CLI Study:Thyroid Date of Exam: 04/27/25 Exam# [id number] Ordering Dr: Alla Renee MD PROCEDURE: THYROID, [...] Paper of the ACR TI-RADS Committee, 2017 ([email or web address]) Reading Location: [id number] CC: Dr. Rishi Vasquez DO; Dr. Ciaran Renee MD ~ Roentgenology Teacher: Signed [facility]05-29-2025 Telephone encounter Note* Telephone Encounter - Hina Lomeli RN - 04/16/2025 9:31 AM EDT Jessika calling from [facility] to report plan of care for patient and jail will continue visit patient 1 time a week for 5 weeks. long-term will work with patient on wound care to bilateral lower extremities. Patient is being follow by Dr. Irene for wound care. No call back needed. Hina Lomeli RN [facility]05-29-2025 Miscellaneous Notes* Telephone Encounter - Hina Lomeli RN - 04/16/2025 9:31 AM EDT Jessika calling from [facility] to report plan of care for patient and jail will continue visit patient 1 time a week for 5 weeks. long-term will work with patient on wound care to bilateral lower extremities. Patient is being follow by Dr. Irene for wound care. No call back needed. Hina Lomeli RN documented in this encounterC[facility]05-20-2025 Telephone encounter Note * Telephone Encounter - Clemencia Chapman RN - 04/07/2025 10:36 AM EDT Patient [...] vomiting Protocols used: Diabetes - High Blood Ynmkg-FCADH-DM [facility]05-20-2025 Miscellaneous Notes* Telephone Encounter - Clemencia Chapman RN - 04/07/2025 10:36 AM EDT Patient [...] vomiting Protocols used: Diabetes - High Blood Zunnm-NACSO-PM documented in this encounterCleveland Clinic [facility]05-09-2025 Instructions* Patient Instructions* Yumiko Whitehead APRN.SHIRT MARKER - 03/27/2025 10:36 AM EDT WHAT YOU [...] review all the medicines you take, even gmev-ntt-fqpordo medicines. As you get older, the way [...] have certain medical conditions. documented in this encounterC[facility] Clinic [facility]05-09-2025 History of Present illness Narrative* Yumiko Whitehead APRN.CNP - 03/27/2025 10:00 AM EDT 03/26/2025 Patient presents with: ER F/U: [facility] ED -03/20/25 Multiple falls, gangrene SADIE feet SUBJECTIVE: This is a 75 year old that is here today for Above Complaints. HOSPITAL/ER FOLLOW UP: Reason for visit: Recurrent falls, Which facility: [facility] transferred to [facility] TCU Date of visit: 03/07/2025-03/11/2025 [facility] then to TCU 03/11/2025-03/19/2025 Diagnosis: UTI, [...] mellitus (HCC) Coronary artery disease Dr. Ch Life Guard, 90% blockage- unable to do stenting Diabetes mellitus type 2 in obese Diabetic feet (HCC) Gangrene (HCC) 2012 RIGHT FOOT Hypertension Mild non proliferative diabetic retinopathy (HCC) 06/11/2013 Both eyes, Dr. Ortiz [facility]-03/25/2020 left mild, right moderate Multiple thyroid nodules last US 01/2015 Peripheral artery disease (HCC) due to Diabetes mellitus, Dr. Kwaku Moscoso Rotator cuff syndrome of left shoulder Dr. Deluna [facility] ALLERGIES Sulfa (Sulfonamide Antibiotics) MEDICATIONS Current [...] Take 1 tablet by mouth once daily. Vjfgxbzt-Syge-Agk-Folic Acid 18-0.4 mg tab Take 1 tablet [...] WALKER FOLDING WHEELED W/O S Yumiko Whitehead APRN.SHIRT MARKER Prescription instructions reviewed with patient as applicable. [...] which included preparing to see the patient, jeei-vp-fybq patient care, completing clinical documentation, obtaining and/or reviewing separately obtained history, performing a medically appropriate examination, counseling and educating the pat ient/family/caregiver, and ordering medications, tests, or procedures. documented in this encounterCleveland Clinic [facility]05-09-2025 NoteHNO ID: [id number] Author: YUMIKO WHITEHEAD APRN.MARK Service: ? Author Type: Nurse Practitioner Type: Progress Notes Filed: 03/27/2025 11:01 Note Text: 03/26/2025 Patient presents with: ER F/U: [facility] ED -03/20/25 Multiple falls, gangrene SADIE feet SUBJECTIVE: This is a 75 year old that is here today for Above Complaints. HOSPITAL/ER FOLLOW UP: Reason for visit: Recurrent falls, Which facility: [facility] transferred to [facility] TCU Date of visit: 03/07/2025-03/11/2025 [facility] then to TCU 03/11/2025-03/19/2025 Diagnosis: UTI, [...] mellitus (HCC) Coronary artery disease Dr. Ch Life Guard, 90% blockage- unable to do stenting Diabetes mellitus type 2 in obese Diabetic feet (HCC) Gangrene (HCC) 2012 RIGHT FOOT Hypertension Mild non proliferative diabetic retinopathy (HCC) 06/11/2013 Both eyes, Dr. Ortiz [facility]-03/25/2020 left mild, right moderate Multiple thyroid nodules last US 01/2015 Peripheral artery disease (HCC) due to Diabetes mellitus, Dr. Kwaku Moscoso Rotator cuff syndrome of left shoulder Dr. Deluna [facility] ALLERGIES Sulfa (Sulfonamide Antibiotics) MEDICATIONS Current [...] Take 1 tablet by mouth once daily. Aojcdkoc-Cbyd-Ywp-Folic Acid 18-0.4 mg tab Take 1 tablet [...] 03/27/2026 Colorectal Cancer Screen (more content not included)...[facility]05-08-2025 Telephone encounter Note* Telephone Encounter - Clary Andres APRN.SHIRT MARKER - 03/26/2025 1:30 PM EDT Agree. BP will be reassessed at appointment tomorrow. Let us know if not addressed at appointment tomorrow. Thank you, Clary Andres APRN.SHIRT MARKER [facility] Work Phone: [phone]) [phone] Miscellaneous Notes* Telephone Encounter - Clary Andres APRN.SHIRT MARKER - 03/26/2025 1:30 PM EDT Agree. BP will be reassessed at appointment tomorrow. Let us know if not addressed at appointment tomorrow. Thank you, Clary Andres APRN.SHIRT MARKER * Telephone Encounter - Lebron Jacome RN - 03/26/2025 12:44 PM EDT [facility] HH- reporting updated POC: plans to [...] [facility] a front wheeled walker. No call back needed if pcp agrees. documented in this encounterC[facility]05-08-2025 Telephone encounter Note * Telephone Encounter - Lebron Jacome RN - 03/26/2025 12:44 PM EDT [facility] HH- reporting updated POC: plans to [...] is going to talk to provider at [facility] tomorrow about getting a front wheeled walker. No call back needed if pcp agrees. [facility]05-06-2025 Telephone encounter Note* Telephone Encounter - Rishi Vasquez DO - 03/24/2025 5:38 PM EDT Noted Rishi Vasquez DO [facility]05-06-2025 Miscellaneous Notes* Telephone Encounter - Rishi Vasquez DO - 03/24/2025 5:38 PM EDT Noted Rishi Vasquez DO * Telephone Encounter - Clemencia Chapman RN - 03/24/2025 3:00 PM EDT Ishaan PT calling from [facility] to report plan of care for patient and PT will visit patient 2 times a week for two weeks. PT will work with patient on functional mobility. No call back needed. Clemencia Chapman RN documented in this encounterC[facility]-06-2025 Telephone encounter Note * Telephone Encounter - Clemencia Chapman RN - 03/24/2025 3:00 PM EDT Ishaan PT calling from [facility] to report plan of care for patient and PT will visit patient 2 times a week for two weeks. PT will work with patient on functional mobility. No call back needed. Clemencia Chapman RN [facility]05-06-2025 Telephone encounter Note* Telephone Encounter - Jesenia Mcgee PA-C - 03/24/2025 12:10 PM EDT Noted Jesenia Mcgee PA-C [facility] Work Phone: [phone] Miscellaneous Notes* Telephone Encounter - Jesenia Mcgee PA-C - 03/24/2025 12:10 PM EDT Noted Jesenia Mcgee PA-C * Telephone Encounter - Melly Pinon LPN - 03/23/2025 1:30 PM EDT Tatum with [facility] Nursing calls to report she saw pt today for start of care. Nursing will see pt once a week x 2 weeks then twice a week x 1 week, then once a week x 1. Nursingwill be doing wound care and teaching wound prevention and education. Melly Pinon LPN documented in this encounterC[facility] Clinic [facility]05-05-2025 Telephone encounter Note * Telephone Encounter - Melly Pinon LPN - 03/23/2025 1:30 PM EDT Tatum with [facility] Nursing calls to report she saw pt today for start of care. Nursing will see pt once a week x 2 weeks then twice a week x 1 week, then once a week x 1. Nursingwill be doing wound care and teaching wound prevention and education. Melly Pinon LPN [facility]05-05-2025 Telephone encounter Note* Telephone Encounter - Clemencia Chapman RN - 03/23/2025 8:29 AM EDT Call placed to Yvonne and notified of below. Clemencia Chapman RN [facility]05-05-2025 Miscellaneous Notes* Telephone Encounter - Clemencia Chapman RN - 03/23/2025 8:29 AM EDT Call placed to Yvonne and notified of below. Clemencia Chapman RN * Telephone Encounter - Rishi Vasquez DO - 03/20/2025 5:03 PM EDT Yes Rishi Vasquez DO * Telephone Encounter - Clemencia Chapman RN - 03/20/2025 12:53 PM EDT Yvonne with [facility] calls to ask if provider would be willing to follow their discharge orders for SN, PT, OT. Patient discharged home today from [facility] after having hospitalization and rehab for falls and UTI. Call back number is [phone]. Clemencia Chapman RN documented in this encounterC[facility]05-02-2025 Telephone encounter Note * Telephone Encounter - Rishi Vasquez DO - 03/20/2025 5:03 PM EDT Yes Rishi Vasquez DO [facility]05-02-2025 Telephone encounter Note* Telephone Encounter - Clemencia Chapman RN - 03/20/2025 12:53 PM EDT Yvonne with [facility] calls to ask if provider would be willing to follow their discharge orders for SN, PT, OT. Patient discharged home today from [facility] after having hospitalization and rehab for falls and UTI. Call back number is [phone]. Clemencia Chapman RN [facility]04-29-2025 [facility]04-29-2025 [facility]04-23-2025 [facility]04-23-[address] [facility]04-20-2025 [facility]04-19-2025 Evaluation note* Diagnosis Onset Date [...] chronic March 07, 2025 4:25pm Atherosclerosis of [place] of both lower extremities with [...] chronic March 11, 2025 5:26pm Atherosclerosis of [place] of both lower extremities with gangrene inactive March 11, 2025 5:26pm Chronic painful diabetic polyneuropathy inactive March 11, 2025 5:26pm Other specified peripheral vascular diseases inactive March 11 5:26pm Atherosclerosis of both lowe r extremities with bilateral ulceration acute April 03, 2025 1 0:32am [facility] [employer] [facility] Work Phone: 1(357) 858-866604-19-2025 Evaluation note* Diagnosis Onset Date Resolution Status [...] chronic March 07, 2025 4:25pm Atherosclerosis of [place] of both lower extremities with [...] chronic March 11, 2025 5:26pm Atherosclerosis of [place] of both lower extremities with [...] polyneuropathy chronic April 03, 2025 1 0:32am [facility] Work Phone: 1(923) 481-733804-19-2025 Evaluation note* Diagnosis Onset Date Resolution Status [...] chronic March 07, 2025 4:25pm Atherosclerosis of [place] of both lower extremities with [...] chronic March 11, 2025 5:26pm Atherosclerosis of [place] of both lower extremities with [...] 2025 9:17am Atherosclerosis of coronary artery of [place] heart without angina pectoris chronic May 07, 2025 9:17am Essential hypertension chronic Ju 2024 9:17am Hyperlipidemia chronic May 07, 2025 9:17am [facility] [employer] [employer] [facility] Work Phone: 1(905) 871-915604-19-2025 Evaluation note* Diagnosis Onset Date Resolution Status [...] chronic March 07, 2025 4:25pm Atherosclerosis of [place] of both lower extremities with [...] chronic March 11, 2025 5:26pm Atherosclerosis of [place] of both lower extremities with [...] 2025 9:17am Atherosclerosis of coronary artery of [place] heart without angina pectoris chronic May 07, [...] 3:35pm Acute UTI acute May 18 2:09am [facility] Work Phone: 1(288) 823-652004-19-2025 Evaluation note* Diagnosis Onset Date Resolution Status [...] chronic March 07, 2025 4:25pm Atherosclerosis of [place] of both lower extremities with [...] chronic March 11, 2025 5:26pm Atherosclerosis of [place] of both lower extremities with [...] 2025 9:17am Atherosclerosis of coronary artery of [place] heart without angina pectoris chronic May 07, [...] fat layer exposed chronic May 18 2:09am [facility] Work Phone: 1(757) 218-101104-19-2025 Evaluation note* Diagnosis Onset Date Resolution Status [...] chronic March 07, 2025 4:25pm Atherosclerosis of [place] of both lower extremities with [...] chronic March 11, 2025 5:26pm Atherosclerosis of [place] of both lower extremities with gangrene inactive March 11, 2025 5:26pm Chronic painful diabetic polyneuropathy inactive March 11, 2025 5:26pm Atherosclerosis of both lowe r extremities with bilateral ulceration acute April 03, 2025 1 0:32am PAOD (peripheral arterial occlusive disease) acute April 03 10:32am Carotid artery stenosis chronic M ay , 2025 10:32am Diabetes mellitus with polyneuropathy chronic April 03, 2025 1 0:32am Preop cardiovascular exam acute May 07, 2025 9:17am Systolic murmur acute April 9:17am Type 2 diabetes mellitus wit h hyperglycemia acute May 07, 2025 9:17am Atherosclerosis of coronary artery of [place] heart without angina pectoris chronic May 07, [...] fat layer exposed chronic May 18 2:09am [facility] Work Phone: 1(770) 260-498904-19-2025 Radiology Diagnostic study note [facility] Imaging Services [address] [place], [place] [address] HIP, UNI W/ Pelvis 2-3 Views MR#: [id number] Acct: [id number] Name: GELY NEWMAN Rep #: [id number] : 1950 F 75 From: Renetta Davis MD PCP: Dr. Rishi Vasquez DO Status: RE G ER Study:HIP, UNI W/ Pelvis 2-3 Views Date of Ex am: 03/07/25 Exam# [id number] Ordering Dr: Megan Vega PROCEDURE: HIP, UNI [...] obvious acute fracture given limitations. Reading Location: [id number] CC: Dr. Rishi Vasquez DO; LILLIAM Joshua ~ Roentgenology Teacher: Signed [facility]04-19-2025 Radiology Diagnostic study note [facility] Imaging Services [address] [place], [place] [address] Chest 1 View (Portable) MR#: [id number] Acct: [id number] Name: GELY NEWMAN Rep #: [id number] : 1950 F 75 From: Renetta Davis MD PCP: Dr. Rishi Vasquez DO Status: RE G ER Study:Chest 1 View (Portable) Date of Exam: 03/07/25 Exam# [id number] Ordering Dr: Megan Vega PROCEDURE: CHEST 1 [...] (Portable) IMPRESSION: No Acute Findings. Reading Location: [facility] CC: Dr. Rishi Vasquez, DO; LILLIAM Joshua ~ Roentgenology Teacher: Signed [facility]04-19-2025 Evaluation note* Diagnosis Onset Date Resolution Status Admit Date Acute UTI acute March 07 4:25pm SHAYY (acute kidney injury) acute March 07, 2025 4:25pm Anemia acute March 07 4:25pm Contusion of left hip acute Apr 2024 4:25pm GI bleed acute March 07 4:25pm Recurrent falls acute February 4:25pm Rhabdomyolysis acute February 4:25pm Chronic kidney disease chronic Ap 2024 4:25pm [facility] Work Phone: 1(217) 775-678602-06-2025 Telephone encounter Note* Telephone Encounter - Sara [...] Solis RN December 25, 2024 5:59 PM [facility]02-06-2025 Miscellaneous Notes* Telephone Encounter - Sara Solis [...] 25, 2024 5:59 PM documented in this encounterCleveland Clinic [facility]01-17-2025 NoteHNO ID: [id number] Author: RISHI VASQUEZ, DO Service: ? Author [...] Seeing Dr. Franco for pain mgmt at [facility] and she is now taking Lyrica [...] mellitus (HCC) Coronary artery disease Dr. Ch Life Guard, 90% blockage- unable to do stenting Diabetes mellitus type 2 in obese Diabetic feet (HCC) Gangrene (HCC) 2012 RIGHT FOOT Hypertension Mild non proliferative diabetic retinopathy (HCC) 06/11/2013 Both eyes, Dr. Ortiz [facility]-03/25/2020 left mild, right moderate Multiple thyroid nodules last US 01/2015 Peripheral artery disease (HCC) due to Diabetes mellitus, Dr. Kwaku Moscoso Rotator cuff syndrome of left shoulder Dr. Deluna [facility] PAST SURGICAL HISTORY Procedure Laterality Date [...] ROTATOR CUFF REPAIR 03/11/14 [facility] C[facility]ST ORD ABDL PEL/LXTR ART [...] 1 tablet by wei (more content not included)...[facility]01-17-2025 History of Present illness Narrative* Rishi [...] walking. Seeing Dr. Headley pain mgmt at [facility] and she is now taking Lyrica [...] Diagnosis Date Advance care planning 05/31/2022 sister Miroslvaa CKD stage 3 due to type 1 diabetes mellitus (HCC) Coronary artery disease Dr. Ch Life Guard, 90% blockage- unable to do stenting Diabetes mellitus type 2 in obese Diabetic feet (HCC) Gangrene (HCC) 2012 RIGHT FOOT Hypertension Mild non proliferative diabetic retinopathy (HCC) 06/11/2013 Both eyes, Dr. Ortiz [facility]-03/25/2020 left mild, right moderate Multiple thyroid nodules last US 01/2015 Peripheral artery disease (HCC) due to Diabetes mellitus, Dr. Kwaku Moscoso Rotator cuff syndrome of left shoulder Dr. Regi Thompson [facility] PAST SURGICAL HISTORY Procedure Laterality Date [...] CUFF REPAIR 03/11/[address] [facility] CATHJ EA 1ST ORD ABDL [...] Take 1 tablet by mouth once daily. Ymwozlqq-Gxrp-Dda-Folic Acid 18-0.4 mg tab Take 1 tablet [...] agreed with the plan. Rishi Vasquez DO [address] [place] [address] documented in this encounterCleveland Clinic [facility]10-28-2024 Telephone encounter Note * Telephone Encounter - Silvestre Martinez MA - 09/15/2024 10:28 AM EDT Call to pt and notified her of response below from Provider. Pt verbalized understanding. Silvestre Martinez MA [facility]10-28-2024 Miscellaneous Notes* Telephone Encounter - Silvestre Martinez [...] out to provider. Requests call back at [phone] with provider response. Clemencia Chapman RN documented in this encounterCleveland Clinic [facility]10-26-2024 Telephone encounter Note * Telephone Encounter - Rishi Vasquez DO - 09/13/2024 12:24 PM EDT Okay with these considerations by specialist Rishi Vasquez DO [facility]10-23-2024 Telephone encounter Note* Telephone Encounter - Clemencia [...] out to provider. Requests call back at [phone] with provider response. Clemencia Chapman RN [facility]10-01-2024 Miscellaneous Notes* Telephone Encounter - Leatha Long LPN - 08/19/2024 2:29 PM EDT Patient notified via voice mail message. Leatha Long LPN * Telephone Encounter - Jesenia Mcgee PA-C - 08/19/2024 1:35 PM EDT Please let patient know that she can take Fish Oil 1000 mg. Jesenia Mcgee PA-C 08/19/2024 * Telephone Encounter - Silvestre Martinez MA - 08/18/2024 8:47 AM EDT Pt wrote into the office via [employer] on 08/16/24 with questions regarding medications. Please [...] HAS HELPED. GELY NEWMAN documented in this encounterCleveland Clinic [facility]10-01-2024 Telephone encounter Note * Telephone Encounter - Leatha Long LPN - 08/19/2024 2:29 PM EDT Patient notified via voice mail message. Leatha Long LPN [facility]10-01-2024 Telephone encounter Note* Telephone Encounter - Jesenia Mcgee PA-C - 08/19/2024 1:35 PM EDT Please let patient know that she can take Fish Oil 1000 mg. Jesenia Mcgee PA-C 08/19/2024 [facility] Work Phone: 1(676) 194-662009-30-2024 Telephone encounter Note* Telephone Encounter - Silvestre Martinez MA - 08/18/2024 8:47 AM EDT Pt wrote into the office via [employer] on 08/16/24 with questions regarding medications. Please [...] WENT WELL AND HAS HELPED. GELY NEWMAN [facility]09-30-2024 Telephone encounter Note* Telephone Encounter - Silvestre Martinez MA - 08/18/2024 8:46 AM EDT Turned into TE and routed to PCP to advise. Silvestre Martinez MA [facility]09-30-2024 Miscellaneous Notes* Telephone Encounter - Silvestre Martinez MA - 08/18/2024 8:46 AM EDT Turned into TE and routed to PCP to advise. Silvestre Martinez MA documented in this encounterCleveland Clinic [facility]09-24-2024 Telephone encounter Note * Telephone Encounter - Annmarie López LPN - 08/12/2024 4:58 PM EDT Pt. informed via My Chart [facility]09-24-2024 Miscellaneous Notes* Telephone Encounter - Annmarie Jauregui [...] advise, Hina Lomeli RN documented in this encounterCleveland Clinic [facility]09-24-2024 Telephone encounter Note * Telephone Encounter - Rishi Vasquez DO - 08/12/2024 4:54 PM EDT Patient has some chronic kidney disease stage 3, which is from her diabetes. She needs to make surethat the specialist doesn't think this will be a concern. Her GFR is 48 Rishi Vasquez DO [facility]09-23-2024 Telephone encounter Note* Telephone Encounter - Silvestre [...] NAME OF THE MEDICATION IS ISCHROLBARSA. THE [employer] SAID IT IS A STEROID. WHAT DO YOU THINK. I AM GOING TO CALL AND CANCEL THE APPOINTMENT FOR SUNDAY AND RESCHEDULE FOR ANOTHER DAY AND HOPETHAT I HEAR FROM YOU. THANK YOU FOR YOUR TIME AND UNDERSTANDING ON THE ISSUE. WILL AWAIT YOUR REPLY GELY NEWMAN [facility]09-20-2024 Telephone encounter Note* Telephone Encounter - Hina [...] Please review and advise, Hina Lomeli RN [facility]07-26-2024 Telephone encounter Note* Telephone Encounter - Annmarie López LPN - 06/13/2024 11:14 AM EDT Needs referral faxed to [facility] for Pain Management. This has been faxed. [facility]07-26-2024 Miscellaneous Notes* Telephone Encounter - Annmarie Jauregui LPN - 06/13/2024 11:14 AM EDT Needs referral faxed to [facility] for Pain Management. This has been faxed. documented in this encounterCleveland Clinic [facility]07-23-2024 NoteHNO ID: [id number] Author: ?, ?, ? Service: ? Author Type: ? Type: Progress Notes Filed: 06/10/2024 13:07 Note Text: POPULATION HEALTH NAVIGATION OUTREACH Action/FYI [place] Support: Called pt to schedule an appt in Pain Management. Lvm for pt to call [phone]. Reason for Outreach Care Gap/HCC or Scheduling Wellness Visits Care Gaps due: Specialty Scheduling Patient Contacted: Unable or unnecessary to reach patient: Left message MyChart message sent Navigation Signature: Gordon Min June 10, 2024 1:06 [facility]07-23-2024 History of Present illness Narrative* Roverto Gordon Peterson - 06/10/2024 1:06 PM EDT POPULATION HEALTH NAVIGATION OUTREACH Action/[facility] Support: Called pt to schedule an appt in Pain Management. Lvm for pt to call [phone]. Reason for Outreach Care Gap/HCC or Scheduling Wellness Visits Care Gaps due: Specialty Scheduling Patient Contacted: Unable or unnecessary to reach patient: Left message [employer] message sent Navigation Signature: Gordon Min June 10, 2024 1:06 PM documented in this encounterCleveland Clinic [facility]07-23-2024 NotePatient Outreach (NETNAV) GELY NEWMAN ([id number]) 1950 F Date Time Provider Department 06/10/24 NO PCP NETNAV During your visit today, we recorded the following information about you: Gordon Min 06/10/2024 1:07 PM Signed POPULATION HEALTH NAVIGATION OUTREACH Action/[facility] Support: Called pt to schedule an appt in Pain Management. Lvm for pt to call [phone]. Reason for Outreach Care Gap/HCC or Scheduling Wellness Visits Care Gaps due: Specialty Scheduling Patient Contacted: Unable or unnecessary to reach patient: Left message [employer] message sent Navigation Signature: Gordon Min June [...] 1 tablet by mouth once daily. - Wzjhoudz-Fjpw-Orf-Folic Acid 18-0.4 mg tab Take 1 tablet [...] [L72.3, L08.9] 02/26/2019 Coronary artery disease involving [place] heart *05/28/2019 Abnormal urine odor [R82.90] 05/28/2019 [...] lef*06/04/2024 Encounter Status:Closed by GORDON MIN on [facility]/24[facility] [facility] Telephone encounter Note* Telephone Encounter - Keisha Coronado RN - 06/04/2024 3:59 PM EDT Spoke with patient. Given message from provider's office. Patient verbalizes understanding. Keisha Coronado RN [facility]07-17-2024 Miscellaneous Notes* Telephone Encounter - Keisha Coronado [...] year. Thanks BOB Ernst documented in this encounterC[facility] Clinic [facility]07-[facility]-2024 Telephone encounter Note * Telephone Encounter - Ja Gaffney LPN - 06/04/2024 2:49 PM EDT Phoned patient left message to return call and ask to speak to a nurse. [facility]07-17-2024 Telephone encounter Note* Telephone Encounter - Rishi Vasquez DO - 06/04/2024 2:36 PM EDT Please inform patient that her mammogram is normal/negative. She will need routine screening mammogram in 1 year. Thanks BOB Ernst [facility]07-17-2024 Note* Letter - Coordinator Mammography - 06/04/2024 2:01 PM EDT June 04, 2024 PID: [id number] Gely Newman [address] [place] [address] Dear Ms. Newman, We are pleased to [...] report will be kept on file at [facility] as part of your permanent medical record and are available for your continuing care. Thank you for allowing us to help in meeting your health care needs. Sincerely, Dr. Monteiro Interpreting Radiologist [facility] (Normal over 40) [facility]07-17-2024 Miscellaneous Notes* Letter - CoordinatorStuart - 06/04/2024 2:01 PM EDT June 04, 2024 PID: [id number] Gely Newman [address] [place] [address] Dear Ms. Newman, We are pleased to [...] report will be kept on file at [facility] as part of your permanent medical record and are available for your continuing care. Thank you for allowing us to help in meeting your health care needs. Sincerely, Dr. Monteiro Interpreting Radiologist [facility] (Normal over 40) documented in this encounterCleveland Clinic [facility]07-17-2024 NoteHNO ID: [id number] Author: RISHI VASQUEZ, DO Service: ? Author [...] mellitus (HCC) Coronary artery disease Dr. Ch Life Guard, 90% blockage- unable to do stenting Diabetes mellitus type 2 in obese Diabetic feet (HCC) Gangrene (HCC) 2012 RIGHT FOOT Hypertension Mild non proliferative diabetic retinopathy (HCC) 06/11/2013 Both eyes, Dr. Ortiz [facility]-03/25/2020 left mild, right moderate Multiple thyroid nodules last US 01/2015 Peripheral artery disease (HCC) due to Diabetes mellitus, Dr. Kwaku Moscoso Rotator cuff syndrome of left shoulder Dr. Deluna [facility] PAST SURGICAL HISTORY Procedure Laterality Date [...] 04-08-13 ROTATOR CUFF [facility] PEL/LXTR [...] by mouth two t (more content not included)...[facility]07-17-2024 History of Present illness Narrative* Rishi Vasquez, - 06/04/2024 11:11 AM EDT Patient presents [...] mellitus (HCC) Coronary artery disease Dr. Ch Life Guard, 90% blockage- unable to do stenting Diabetes mellitus type 2 in obese Diabetic feet (HCC) Gangrene (HCC) 2012 RIGHT FOOT Hypertension Mild non proliferative diabetic retinopathy (HCC) 06/11/2013 Both eyes, Dr. Ortiz [facility]-03/25/2020 left mild, right moderate Multiple thyroid nodules last US 01/2015 Peripheral artery disease (HCC) due to Diabetes mellitus, Dr. Kwaku Moscoso Rotator cuff syndrome of left shoulder Dr. Regi Montes [facility] PAST SURGICAL HISTORY Procedure Laterality Date [...] CUFF REPAIR 03/11/[address] [facility] SLCTV CATHJ EA 1ST ORD ABDL [...] Take 1 tablet by mouth once daily. Eytaabru-Gwvm-Gco-Folic Acid 18-0.4 mg tab Take 1 tablet [...] agreed with the plan. Rishi Vasquez DO [address] [place] [address] documented in this encounterCleveland Clinic [facility]07-16-2024 History of Present illness Narrative* Elizabeth Sandoval [...] PATIENT PRESENTS WITH AN IMPLANTABLE OR ATTACHED DOCTOR ASSISTANT: No RADIOLOGY DEPARTMENT: Mammography PERIPHERAL IV DATA: Not applicable SIGNED BY: RT Mono(R) June 03, 2024 9:08 AM documented in this encounterCleveland Clinic [facility]07-16-2024 NoteHNO ID: [id number] Author: ELIZABETH SANDOVAL RT(R) Service: ? Author [...] PATIENT PRESENTS WITH AN IMPLANTABLE OR ATTACHED DOCTOR ASSISTANT: No RADIOLOGY DEPARTMENT: Mammography PERIPHERAL IV DATA: Not applicable SIGNED BY: RT Mono(R) June 03, 2024 9:08 [facility]07-01-2024 Telephone encounter Note* Telephone Encounter - Joanie Rosario LPN - 05/19/2024 12:29 PM EDT Pt was notified of such. [facility]07-01-2024 Miscellaneous Notes* Telephone Encounter - Joanie Rosario LPN - 05/19/2024 12:29 PM EDT Pt was notified of such. * Telephone Encounter - Clary Andres APRN.CNP - 05/19/2024 11:31 AM EDT Labs are signed as pended. Please make sure she knows these are to be fasting. Thank you, Clary Andres APRN.SHIRT MARKER * Telephone Encounter - Silvestre Martinez MA - 05/19/2024 9:16 AM EDT Pt sent in [employer] message asking for lab orders for her upcoming appt 06/04/24. She would like these ordered so she can schedule lab appt. Please notify her once these have been ordered. Labs pended,please review and file. Silvestre Martinez MA documented in this encounterCleveland Clinic [facility]07-01-2024 Telephone encounter Note * Telephone Encounter - Clary Andres APRN.SHIRT MARKER - 05/19/2024 11:31 AM EDT Labs are signed as pended. Please make sure she knows these are to be fasting. Thank you, Clary Andres APRN.SHIRT MARKER [facility]07-01-2024 Telephone encounter Note* Telephone Encounter - Silvestre Martinez MA - 05/19/2024 9:16 AM EDT Pt sent in [facility] message asking for lab orders for her upcoming appt 06/04/24. She would like these ordered so she can schedule lab appt. Please notify her once these have been ordered. Labs pended,please review and file. Silvestre Martinez MA [facility]07-01-2024 Telephone encounter Note* Telephone Encounter - Silvestre Martinez MA - 05/19/2024 9:15 AM EDT Started TE and routed to Provider. Silvestre Martinez MA [facility]07-01-2024 Miscellaneous Notes* Telephone Encounter - Silvestre Martinez MA - 05/19/2024 9:15 AM EDT Started TE and routed to Provider. Silvestre Martinez MA documented in this encounterCleveland Clinic [facility]05-06-2024 Telephone encounter Note * Telephone Encounter - [...] Please advise. Thank you. Michaela Millan MA. [facility]05-06-2024 Miscellaneous Notes* Telephone Encounter - Michaela Millan [...] you. Michaela Millan MA. documented in this encounterCleveland Clinic [facility]05-02-2024 History of Present illness Narrative* Anselmo Marr [...] Therapeutic exercise, Neuromuscular re- education, Manual therapy, Self-nursing home management, and Gait training. Updated: 02/14/24 and [...] (moderate dysfunction) Phys Func - Percentile 27 14 Self-Eff Symptom - Score 39 (Low) [...] 1043 Anselmo Marr PT documented in this encounterCleveland Clinic [facility]04-22-2024 History of Present illness Narrative* Keisha Guzman PTA - 03/10/2024 11:34 AM EDT Program_ID:[id number] Access Code: [email or web address] URL: [email or web address] Date: 03-10-2024 Prepared By: Anselmo Marr Program [...] deviations identified in the objective section above. Self-Detention Management: 1: Pt's questions answered in regards [...] 1144 ANISA Rodriguez PT documented in this encounterCleveland Clinic [facility]04-18-2024 History of Present illness Narrative* Anselmo Marr, [...] LEVEL OF FUNCTION: TREATMENT: Therapeutic Exercise: 1: Herborium GroupFit StepOne seat #11 x6 minutes (Pt provided [...] 1044 Anselmo Marr PT documented in this encounterCleveland Clinic [facility]03-21-2024 Miscellaneous Notes* Telephone Encounter - Lebron Jacome RN - 02/07/2024 2:13 PM EDT Faxed general surgery referral and US thyroid/parathyroid to Dr. Kwaku Moscoso, per patient request (reports Dr. Moscoso never received them). . Confirmation received. * Telephone Encounter - Selma Galeano - 01/14/2024 2:38 PM EST Faxed Selma Galeano documented in this encounterCleveland Clinic [facility]03-19-2024 History of Present illness Narrative* Keisha Guzman PTA - 02/05/2024 9:22 AM EDT Program_ID:[id number] Access Code: [email or web address] URL: [email or web address] Date: 02-05-2024 Prepared By: Anselmo Marr Program [...] use of cane. TREATMENT: Therapeutic Exercise: 1: SciFit StepOne seat #12 x6 minutes (1:1 throughout.) [...] 929 ANISA Rodriguez PT documented in this encounterCleveland Clinic [facility]03-13-2024 History of Present illness Narrative* Anselmo Marr [...] cane to therapy. TREATMENT: Therapeutic Exercise: 1: SciFit StepOne seat #12 x6 minutes (1:1 throughout. [...] 1050 Anselmo Marr PT documented in this encounterCleveland Clinic [facility]03-11-2024 Miscellaneous Notes* Telephone Encounter - Laura Isaac [...] you. Laura Isaac LPN. documented in this encounterCleveland Clinic [facility]03-06-2024 History of Present illness Narrative* Ewamarilyn Anselmo, PT - 01/23/2024 1:06 PM EST Episode [...] LEVEL OF FUNCTION: TREATMENT: Therapeutic Exercise: 1: Herborium [employer] StepOne seat #12 x6 minutes (1:1 throughout. [...] Marr PT - 01/23/2024 10:31 AM EST Program_ID:[id number] Access Code: [email or web address] URL: [email or web address] Date: 01-23-2024 Prepared By: Anselmo Marr Program [...] sets - 10 reps documented in this encounterCleveland Clinic [facility]02-27-2024 History of Present illness Narrative* Anselmo Marr, PT - 01/15/2024 4:31 PM EST Episode [...] Planned: 6 Planned Treatment Interventions: Therapeutic exercise (77043), Neuromuscular re- education (05712), Manual therapy (81400), Therapeutic activities (23307), Self- nursing home management (81924), Gait Training (84784), Patient/Family/Caregiver Education, Body Mechanics Training, Functional training [...] Marr PT - 01/15/2024 10:42 AM EST Program_ID:[id number] Access Code: [email or web address] URL: [email or web address] Date: 01-15-2024 Prepared By: Anselmo Marr Program Notes Exercises - Hooklying Single Knee to Chest Stretch - 3 x daily - 7 x weekly - sets - 3 reps - Supine Double Knee to Chest - 3 x daily - 7 x weekly - sets - 3 reps documented in this encounterCleveland Clinic [facility]02-22-2024 Miscellaneous Notes* Telephone Encounter - Keisha Coronado RN - 01/10/2024 3:22 PM EST Spoke with patient. Given message from provider's office. Patient verbalizes understanding. Transferred to [facility] to schedule GEN SURG appointment. Keisha Coronado [...] of the nodules esophoria documented in this encounterCleveland Clinic [facility]02-14-2024 Miscellaneous Notes* Telephone Encounter - Ira Moreno, RN - 01/02/2024 6:25 PM EST patient notified of information and would like scheduled for therapy. Patient can do Sun-Sun-Sun 8-12 or -0-12 * Telephone Encounter - Selma Galeano MA - 01/02/2024 6:18 PM EST Left message to contact office Semla Galeano * Telephone Encounter - Rishi Vasquez [...] THANK YOU, GELY NEWMAN documented in this encounterCleveland Clinic [facility]02-08-2024 Miscellaneous Notes* Telephone Encounter - Betsey Kerr LPN - 12/27/2023 2:04 PM EST Sent to provider in phone encounter. documented in this encounterCleveland Clinic [facility]02-01-2024 History of Present illness Narrative* Rebecca Puente [...] PATIENT PRESENTS WITH AN IMPLANTABLE OR ATTACHED DOCTOR ASSISTANT: No RADIOLOGY DEPARTMENT: Ultrasound PERIPHERAL IV DATA: Not applicable SIGNED BY: Rebecca Puente RDMS RUST December 20, 2023 4:21 PM documented in this encounterCleveland Clinic [facility]01-22-2024 NoteIMPRESSION: DEGENERATIVE CHANGE IN ALIGNMENT ABNORMALITIES DESCRIBED. PROGRESSION PRIOR STUDY. NO ACUTE ABNORMALITY Roentgenology Teacher: SANDRA Transcribe Date/Time: Dec 10 2023 1:03P Dictated by : CHASE SUE MD This examination was interpreted and the report reviewed and electronically signed by: CHASE SUE MD on Dec 10 2023 1:17PM EST DIVISION OF [id number] History of Present illness Narrative* Sienna Mendoza, RT(R) - 12/10/2023 9:00 AM EST Radiology [...] 10, 2023 8:44 AM documented in this encounterCleveland Clinic [facility]11-15-2023 Miscellaneous Notes* Telephone Encounter - Ja Gaffney [...] end of the week. documented in this encounterCleveland Clinic [facility]10-10-2023 Miscellaneous Notes* Telephone Encounter - Yani Watts APRN.CNP - 08/28/2023 7:55 AM EDT Noted, thank you. Yani Watts APRN.MARK * Telephone Encounter - Lebron Jacome RN [...] results to Dr. Membreno at fax # [phone]. Confirmation received. * Telephone Encounter - Ja [...] SARIAH Morrison: Miscellaneous Lab documented in this encounterCleveland Clinic [facility]09-13-2023 Miscellaneous Notes* Telephone Encounter - Annmarie López [...] EDT Pt had blood work done at [facility]. View External Labs - Microbiology [ID [id number]] View External Labs - Miscellaneous Lab [ID [id number]] documented in this encounterC[facility] Clinic [facility]08-22-2023 Miscellaneous Notes* Telephone Encounter - Kristie Delarosa LPN - 07/10/2023 11:54 AM EDT Pt notified of same, verbalizes understanding. Kristie Delarosa LPN * Telephone Encounter - Danyelle Tripp PA-C - 07/10/2023 11:02 AM EDT Let patient know that repeat Mamm/US is normal. Return to yearly screenings. documented in this encounterCleveland Clinic [facility]08-22-2023 History of Present illness Narrative* Rebecca Puente [...] 10, 2023 2:57 PM documented in this encounterC[facility] Clinic [facility]08-22-2023 History of Present illness Narrative* Elizabeth Sandoval [...] 10, 2023 9:56 AM documented in this encounterC[facility] Clinic [facility]07-17-2023 History of Present illness Narrative* Rishi Vasquez DO - 06/04/2023 11:42 AM EDT Patient presents with: 6 Month Exam HPI: Gely Newman is a 73 year old female who presents to the office today for review of health conditions. Concerns today: Carotid artery US on 06/22/[address] Moscoso, surgeon, on 07/10/23 for follow up CAD, has recently seen Dr. Schultz/Rick Bergeron [employer], no recent new testing, no recent symptoms [...] mellitus (HCC) Coronary artery disease Dr. Ch Life Guard, 90% blockage- unable to do stenting Diabetes mellitus type 2 in obese (HCC) Diabetic feet (HCC) Gangrene (HCC) 2012 RIGHT FOOT Hypertension Mild non proliferative diabetic retinopathy (HCC) 06/11/2013 Both eyes, [facility]. Ortiz [facility]-03/25/2020 left mild, right moderate Multiple thyroid nodules last US 01/2015 Peripheral artery disease (HCC) due to Diabetes mellitus, Dr. Kwaku Moscoso Rotator cuff syndrome of left shoulder Dr. Deluna [facility] PAST SURGICAL HISTORY Procedure Laterality Date [...] ROTATOR CUFF REPAIR 03/11/14 [facility]D ABDL PEL/LXTR ART [...] Take 1 tablet by mouth once daily. Iamkgtay-Zoca-Jvo-Folic Acid 18-0.4 mg tab Take 1 tablet [...] ICD10: M12.9 Stable, continue walking and stretching iRshi Vasquez DO To ER if develops chest pain, shortness of breath, or severe worsening of symptoms. Discussed risks, benefits, alternatives, and potential side effects of medications. Patient expressed understanding and agreed with the plan. Rishi Vasquez DO [address] [place] [address] documented in this encounterCleveland Clinic [facility]07-11-2023 Miscellaneous Notes* Telephone Encounter - Jessie Collins [...] views. Danyelle Tripp PA-C documented in this encounterC[facility] Clinic [facility]07-11-2023 Miscellaneous Notes* Letter - Coordinator, Mammography - 05/29/2023 12:21 PM EDT May 30, 2023 PID: [id number] Gely Newman [address] [place] [address] Dear Ms. Newman, Your recent breast imaging exam on 05/29/2023 showed a possible finding that requires additional imaging studies for a complete evaluation. Most such findings are probably benign (not cancer). If you have a healthcare provider who ordered/prescribed your screening mammogram: Please call [phone] or [phone]: [phone] to schedule an appointment for your additional [...] and reports are kept on file at [facility] as part of your permanent medical record, and are available for your continuing care. Thank you for allowing us to help in meeting your health care needs. Sincerely, Dr. Stubbs Interpreting Radiologist [facility] (Additional imaging) documented in this encounterC[facility] Clinic [facility]07-11-2023 History of Present illness Narrative* Hawa Will, RT(R) - 05/29/2023 10:10 AM EDT Radiology [...] 29, 2023 9:58 AM documented in this encounterCleveland Clinic [facility]07-10-2023 Miscellaneous Notes* Telephone Encounter - Michaela Millan Ma - 05/28/2023 10:17 AM EDT Last office visit: 12/05/22 F/u scheduled: 06/04/23 Michaela Millan Ma documented in this encounterCleveland Clinic [facility]04-24-2023 Miscellaneous Notes* Telephone Encounter - Jessie Collins LPN - 03/12/2023 1:57 PM EDT Reina with Dr. Garner's office called and identified pt with name and date of . Pt getting DM shoes from them and they received everything except the office note from Dr. Sebastian 12-11-22. Requested this be faxed to them. Faxed to [phone]. Done. Jessie Collins LPN documented in this encounterCleveland Clinic [facility]03-22-2023 Miscellaneous Notes* Telephone Encounter - Clary Andres APRN.CNP - 02/07/2023 3:05 PM EDT Order signed. Clary Andres APRN.CNP * Telephone Encounter - Selma Galeano - 02/05/2023 1:21 PM EDT Order pended Selma Galeano documented in this encounterCleveland Clinic [facility]03-06-2023 Miscellaneous Notes* Telephone Encounter - Jessie Collins LPN - 01/22/2023 3:41 PM EST Spoke with pt and information listed below given. Pt verbalizes understanding. Jessie Collins LPN * Telephone Encounter - Any Rodriguez LPN - 01/22/2023 2:17 PM EST Message left for pt to return call to a nurse. * Telephone Encounter - Yani Watts APRN.MARK - 01/22/2023 11:46 AM EST The following approved medication requests have been transmitted electronically. Requested Prescriptions Signed Prescriptions Disp Refills glimepiride (AMARYL) 4 mg tablet 30 tablet 11 Sig: Take 1 tablet by mouth daily with breakfast. Authorizing Provider: RISHI VASQUEZ Ordering User: YANI WATTS APRN.CNP * Telephone [...] want to do a PA? Reference # [id number] documented in this encounterCleveland Clinic [facility]02-20-2023 Miscellaneous Notes* Telephone Encounter - Joanie Rosario LPN - 01/08/2023 11:53 AM EST [facility]--12/05/22 Nov--06/04/23 Last refill--07/17/22 180 with 0 refills Last labs--12/14/22 documented in this encounterCleveland Clinic [facility]02-17-2023 Miscellaneous Notes* Telephone Encounter - Annmarie López [...] needed Rishi Vasquez DO documented in this encounterCleveland Clinic [facility]02-16-2023 Miscellaneous Notes* Telephone Encounter - Joanie Rosario LPN - 01/04/2023 11:56 AM EST Spoke with pt gave information provided. [pt voices understanding. * Telephone Encounter - Rishi Vasquez DO - 01/04/2023 11:28 AM EST Please inform patient that her NM thyroid uptake scan shows no concerning abnormal uptake Rishi Vasquez DO documented in this encounterCleveland Clinic [facility]02-09-2023 History of Present illness Narrative* Evelin Alfaro, [...] 09:22 PATIENT DISCHARGED TO: Ambulatory patient, left [place] department area. A Diagnostic radioactive procedure has taken place, with no further precautions necessary other than routine body substance precautions. More information regarding radiation safety can be found usingthis link: [email or web address] SIGNATURE: ISMAEL Mcpherson PATIENT NAME: Gely Newman DATE: December 28, 2022 TIME: 09:25 AM PAGER/CONTACT #: documented in this encounterCleveland Clinic [facility]02-01-2023 History of Present illness Narrative* Rebecca Puente [...] Not applicable SIGNED BY: Rebecca Puente RDMS RUST December 20, 2022 11:23 AM documented in this encounterCleveland Clinic [facility]01-19-2023 Miscellaneous Notes* Telephone Encounter - Joanie Rosario LPN - 12/07/2022 10:41 AM EST Called pt left message as such. * Telephone Encounter - Yani Watts APRN.MARK - 12/07/2022 10:09 AM EST No need for another carotid ultrasound at this time. Yani Watts APRN.MARK * Telephone Encounter - Joanie Rosario LPN - 12/07/2022 9:57 AM EST Mrs. Newman came [facility] , she states was scheduled for [...] to Rebeka to view. documented in this encounterCleveland Clinic [facility]01-17-2023 History of Present illness Narrative* Rishi Vasquez, [...] mellitus (HCC) Coronary artery disease Dr. Ch Life Guard, 90% blockage- unable to do stenting Diabetes mellitus type 2 in obese (HCC) Diabetic feet (HCC) Gangrene (HCC) 2012 RIGHT FOOT Hypertension Mild non proliferative diabetic retinopathy (HCC) 06/11/2013 Both eyes, [facility]. Ortiz [facility]-03/25/2020 left mild, right moderate Multiple thyroid nodules last US 01/2015 Peripheral artery disease (HCC) due to Diabetes mellitus, Dr. Kwaku Moscoso Rotator cuff syndrome of left shoulder Dr. Regi Thompson [facility] PAST SURGICAL HISTORY Procedure Laterality Date [...] CUFF REPAIR 03/11/[address] [facility] SLCTV CATHJ EA 1ST ORD ABDL [...] Take 1 tablet by mouth once daily. Svpcxpwi-Cwib-Kmd-Folic Acid 18-0.4 mg tab Take 1 tablet [...] EACs without erythema or debris. TMs pearly crabajal with intact landmarks b/l. Neck: supple, No [...] with the plan. Rishi Vasquez DO [address] [place] [address] documented in this encounterCleveland Clinic [facility]11-05-2022 History of Present illness Narrative* Camille Mitchell [...] mellitus (HCC) Coronary artery disease Dr. Ch Life Guard, 90% blockage- unable to do stenting Diabetes mellitus type 2 in obese (HCC) Diabetic feet (HCC) Gangrene (HCC) 2012 RIGHT FOOT Hypertension Mild non proliferative diabetic retinopathy (HCC) 06/11/2013 Both eyes, [facility]. Ortiz [facility]-03/25/2020 left mild, right moderate Multiple thyroid nodules last US 01/2015 Peripheral artery disease (HCC) due to Diabetes mellitus, Dr. Kwaku Moscoso Rotator cuff syndrome of left shoulder Dr. Deluna [facility] Current Outpatient Medications Medication Sig Dispense [...] Take 1 tablet by mouth once daily. Xnoxluuf-Gmym-Lqb-Folic Acid 18-0.4 mg tab Take 1 tablet [...] ROTATOR CUFF REPAIR 03/11/14 [facility]. [facility] C[facility] EA 1ST ORD ABDL PEL/LXTR ART [...] CULTURE Camille Mitchell PA-C documented in this encounterCleveland Clinic [facility]10-20-2022 Miscellaneous Notes* Telephone Encounter - Sara Solis RN - 09/07/2022 11:05 AM EDT Pt called and is notified of providers results and instructions. Pt voices understanding. Pt sent information through friendfund per Pt request. Sara Solis RN * [...] would like her to discuss with her hose handler to decrease this dose to 20 mg a day due to these abnormal kidney levels. Also her TSH is slightly low. I don't think she is taking any thyroid medication. Need for recheck of thyroid labs in 1 month as ordered Rishi Vasquez DO documented in this encounterCleveland Clinic [facility]09-27-2022 History of Present illness Narrative* Camille Mitchell PA-C - 08/15/2022 1:07 PM EDT Images from the original note were not included. This note was created using PEAK-ITriter. Subjective Gely Newman is a 72 year [...] mellitus (HCC) Coronary artery disease Dr. Ch Life Guard, 90% blockage- unable to do stenting Diabetes mellitus type 2 in obese (HCC) Diabetic feet (HCC) Gangrene (HCC) 2012 RIGHT FOOT Hypertension Mild non proliferative diabetic retinopathy (HCC) 06/11/2013 Both eyes, [facility]. Ortiz [facility]-03/25/2020 left mild, right moderate Multiple thyroid nodules last US 01/2015 Peripheral artery disease (HCC) due to Diabetes mellitus, Dr. Kwaku Moscoso Rotator cuff syndrome of left shoulder Dr. [facility] Current Outpatient Medications Medication Sig Dispense [...] Take 1 tablet by mouth once daily. Azbknvib-Ltdb-Qgq-Folic Acid 18-0.4 mg tab Take 1 tablet [...] RIGHT FOOT REVSC OPN/PRQ FEM/POP W/ATHRC/ANGIOP [facility] 02-10-13 right leg REVSC OPN/PRQ FEM/POP W/ATHRC/ANGIOP [facility] 04-08-13 ROTATOR CUFF REPAIR 03/11/14 Dr. Deluna [facility] SLCTV CATHJ EA 1ST ORD ABDL [...] RIGHT Camille Mitchell PA-C documented in this encounterC[facility] History of Present illness Narrative* Kena Sims, IRON INSTALLER.SHIRT MARKER - 06/17/2022 8:33 AM EDT CC: Patient [...] mellitus (HCC) Coronary artery disease Dr. Ch [facility], 90% blockage- unable to do stenting Diabetes mellitus type 2 in obese (HCC) Diabetic feet (HCC) Gangrene (HCC) 2012 RIGHT FOOT Hypertension Mild non proliferative diabetic retinopathy (HCC) 06/11/2013 Both eyes, Dr. Ortiz [facility]-03/25/2020 left mild, right moderate Multiple thyroid [...] CUFF REPAIR 03/11/[address] [facility] SLCTV CATHJ EA 1ST ORD ABDL [...] Code E11.51 Insulin: No blood sugar diagnostic (Quadro DynamicsTOUCH ULTRA TEST) test strip Use as instructed [...] Take 1 tablet by mouth once daily. Lpqnmszq-Mmke-Izc-Folic Acid (CENTRUM COMPLETE) 18-0.4 mg tab Take [...] plan. Kena Sims APRN.CNP documented in this encounterC[facility] Clinic [facility]07-18-2022 Miscellaneous Notes* Telephone Encounter - Sara Solis [...] imaging. Please assist her to schedule this. Yani Watts APRN.CNP documented in this encounterC[facility] Clinic [facility]07-18-2022 Miscellaneous Notes* Letter - Mammography Coordinator - 06/05/2022 12:46 PM EDT June 05, 2022 PID: [id number] Gely Newman [address] [place] [address] Dear Ms. Newman, Your recent breast imaging exam on 06/05/2022 showed a possible finding that requires additional imaging studies for a complete evaluation. Most such findings are probably benign (not cancer). If you have a healthcare provider who ordered/prescribed your screening mammogram: Please call [phone] or [phone]: [phone] to schedule an appointment for your additional [...] and reports are kept on file at [facility] as part of your permanent medical record, and are available for your continuing care. Thank you for allowing us to help in meeting your health care needs. Sincerely, Dr. Benjamin Interpreting Radiologist [facility] (Additional imaging) documented in this encounterCleveland Clinic [facility]07-18-2022 History of Present illness Narrative* RT Mono(R) [...] 05, 2022 10:08 AM documented in this encounterC[facility] Clinic [facility]07-13-2022 History of Present illness Narrative* Rishi Vasquez, DO - 05/31/2022 10:58 AM EDT Patient presents with: 6 Month Exam HPI: Gely Newman is a 72 year old female who presents to the office today for review of health conditions. Concerns today: PAD, hx of foot ulcerations, currently with one on her right foot, managed by Ash Handler Hx of CAD, PAD, sees [facility]. Will have follow up in the [...] mellitus (HCC) Coronary artery disease Dr. Ch [facility], 90% blockage- unable to do stenting Diabetes mellitus type 2 in obese (HCC) Diabetic feet (HCC) Gangrene (HCC) 2012 RIGHT FOOT Hypertension Mild non proliferative diabetic retinopathy (HCC) 06/11/2013 Both eyes, Dr. Ortiz [facility]-03/25/2020 left mild, right moderate Multiple thyroid nodules last US 01/2015 Peripheral artery disease (HCC) due to Diabetes mellitus, Dr. Kwaku Moscoso Rotator cuff syndrome of left shoulder Dr[facility] PAST SURGICAL HISTORY Procedure Laterality Date [...] 04-08-13 ROTATOR CUFF [facility]PA[facility]/LXTR [...] Take 1 tablet by mouth once daily. 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 Coronary artery disease involving [place] heart, unspecified vessel or lesion type, unspecified whether angina present - ICD9: 414.01, ICD10: I25.10 - f/u with [facility], no new symptoms 9. Fatigue, unspecified type [...] with the plan. Rishi Vasquez DO [address] [place] [address] documented in this encounterCleveland Clinic [facility]07-06-2022 Miscellaneous Notes* Telephone Encounter - Yvonne Garcia - 05/24/2022 1:32 PM EDT LM on patient's VM to schedule consult for colonoscopy. First attempt. * Telephone Encounter - Garrick La - 05/24/2022 1:25 PM EDT Patient due for 5 year follow up colonoscopy. Patient is not appropriate for open access. Please schedule office consult Garrick La documented in this encounterCleveland Clinic [facility]06-14-2022 Miscellaneous Notes* Telephone Encounter - Jessie Collins [...] you. Jessie Collins LPN documented in this encounterCleveland Clinic [facility]06-06-2022 Miscellaneous Notes* Telephone Encounter - Clary Johnson APRN.CNP - 04/24/2022 12:26 PM EDT [facility] website checked and validated. All prescriptions have [...] advise. Georgia Nicole LPN documented in this encounterCleveland Clinic [facility]05-05-2022 Miscellaneous Notes* Telephone Encounter - Yani Watts APRN.CNP - 03/23/2022 9:39 AM EDT [...] refills Last labs-- 03/07/22 documented in this encounterCleveland Clinic [facility]05-05-2022 Miscellaneous Notes* Telephone Encounter - Joanie Rosario LPN - 03/23/2022 8:43 AM EDT mayo-- 12/02/21 Last refill-- 04/06/21 30 with 11 refills Last labs- 03/07/22 documented in this encounterCleveland Clinic [facility]05-04-2022 Evaluation note* Diagnosis Stage 3 chronic kidney disease, unspecified whether stage 3a or 3b CKD (HCC)- Primary 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) Type II or unspecified type diabetes mellitus with peripheral circulatory disorders, not stated as uncontrolled documented in this encounter [facility]04-08-[facility]22 Miscellaneous Notes* Telephone Encounter - Selma Sanders [...] weeks. Otherwise, no other concerns. Yani Watts APRN.CNP documented in this encounterCleveland Clinic [facility]12-27-2017 History of Past illness Narrative* Problem Noted Date Resolved Date Benign paroxysmal positional vertigo 11/14/2017 11/30/2021 Essential hypertension 11/30/2015 6 documented as of this encounter (statuses as of 03/22/2022) [facility] History of Past illness Narrative* Problem Noted Date Resolved Date Benign paroxysmal positional vertigo 11/14/2017 11/30/2021 Essential hypertension 11/30/2015 6 documented as of this encounter (statuses as of 03/23/2022) [facility] History of Past illness Narrative* Problem Noted Date Resolved Date Benign paroxysmal positional vertigo 11/14/2017 11/30/2021 Essential hypertension 11/30/2015 6 documented as of this encounter (statuses as of 04/24/2022) [place] [address]-27-2017 History of Past illness Narrative* Problem Noted Date Resolved Date Benign paroxysmal positional vertigo 11/14/2017 11/30/2021 Essential hypertension 11/30/2015 6 documented as of this encounter (statuses as of 04/26/2022) [facility] History of Past illness Narrative* Problem Noted Date Resolved Date Benign paroxysmal positional vertigo 11/14/2017 11/30/2021 Essential hypertension 11/30/2015 6 documented as of this encounter (statuses as of 05/02/2022) [facility] History of Past illness Narrative* Problem Noted Date Resolved Date Benign paroxysmal positional vertigo 11/14/2017 11/30/2021 Essential hypertension 11/30/2015 6 documented as of this encounter (statuses as of 05/24/2022) [place] [address]27-2017 History of Past illness Narrative* Problem Noted Date Resolved Date Benign paroxysmal positional vertigo 11/14/2017 11/30/2021 Essential hypertension 11/30/2015 6 documented as of this encounter (statuses as of 05/31/2022) [facility] History of Past illness Narrative* Problem Noted Date Resolved Date Benign paroxysmal positional vertigo 11/14/2017 11/30/2021 Essential hypertension 11/30/2015 6 documented as of this encounter (statuses as of 06/06/2022) [facility] History of Past illness Narrative* Problem Noted Date Resolved Date Benign paroxysmal positional vertigo 11/14/2017 11/30/2021 Essential hypertension 11/30/2015 6 documented as of this encounter (statuses as of 06/06/2022) [address]27-2017 History of Past illness Narrative* Problem Noted Date Resolved Date Benign paroxysmal positional vertigo 11/14/2017 11/30/2021 Essential hypertension 11/30/2015 6 documented as of this encounter (statuses as of 06/07/2022) [facility] History of Past illness Narrative* Problem Noted Date Resolved Date Benign paroxysmal positional vertigo 11/14/2017 11/30/2021 Essential hypertension 11/30/2015 6 documented as of this encounter (statuses as of 06/17/2022) [place] [address]27-2017 History of Past illness Narrative* Problem Noted Date Resolved Date Benign paroxysmal positional vertigo 11/14/2017 11/30/2021 Essential hypertension 11/30/2015 6 documented as of this encounter (statuses as of 08/15/2022) [place] [address]-2017 History of Past illness Narrative* Problem Noted Date Resolved Date Benign paroxysmal positional vertigo 11/14/2017 11/30/2021 Essential hypertension 11/30/2015 6 documented as of this encounter (statuses as of 09/07/2022) [address]27-2017 History of Past illness Narrative* Problem Noted Date Resolved Date Benign paroxysmal positional vertigo 11/14/2017 11/30/2021 Essential hypertension 11/30/2015 6 documented as of this encounter (statuses as of 09/09/2022) [facility] of Past illness Narrative* Problem Noted Date Resolved Date Benign paroxysmal positional vertigo 11/14/2017 11/30/2021 Essential hypertension 11/30/2015 6 documented as of this encounter (statuses as of 09/23/2022) [facility] History of Past illness Narrative* Problem Noted Date Resolved Date Benign paroxysmal positional vertigo 11/14/2017 11/30/2021 Essential hypertension 11/30/2015 6 documented as of this encounter (statuses as of 12/05/2022) [place] [address]27-2017 History of Past illness Narrative* Problem Noted Date Resolved Date Benign paroxysmal positional vertigo 11/14/2017 11/30/2021 Essential hypertension 11/30/2015 6 documented as of this encounter (statuses as of 12/07/2022) [place] [address]-2017 History of Past illness Narrative* Problem Noted Date Resolved Date Benign paroxysmal positional vertigo 11/14/2017 11/30/2021 Essential hypertension 11/30/2015 6 documented as of this encounter (statuses as of 01/04/2023) [address]27-2017 History of Past illness Narrative* Problem Noted Date Resolved Date Benign paroxysmal positional vertigo 11/14/2017 11/30/2021 Essential hypertension 11/30/2015 6 documented as of this encounter (statuses as of 01/05/2023) [place] [address]27-2017 History of Past illness Narrative* Problem Noted Date Resolved Date Benign paroxysmal positional vertigo 11/14/2017 11/30/2021 Essential hypertension 11/30/2015 6 documented as of this encounter (statuses as of 01/09/2023) [place] [address]-2017 History of Past illness Narrative* Problem Noted Date Resolved Date Benign paroxysmal positional vertigo 11/14/2017 11/30/2021 Essential hypertension 11/30/2015 6 documented as of this encounter (statuses as of 02/07/2023) [place] [address]27-2017 History of Past illness Narrative* Problem Noted Date Resolved Date Benign paroxysmal positional vertigo 11/14/2017 11/30/2021 Essential hypertension 11/30/2015 6 documented as of this encounter (statuses as of 03/02/2023) [place] [address]-2017 History of Past illness Narrative* Problem Noted Date Resolved Date Benign paroxysmal positional vertigo 11/14/2017 11/30/2021 Essential hypertension 11/30/2015 6 documented as of this encounter (statuses as of 03/12/2023) [place] [address]-2017 History of Past illness Narrative* Problem Noted Date Resolved Date Benign paroxysmal positional vertigo 11/14/2017 11/30/2021 Essential hypertension 11/30/2015 6 documented as of this encounter (statuses as of 03/12/2023) [facility] of Past illness Narrative* Problem Noted Date Diagnosed Date Resolved Date Benign paroxysmal positional vertigo 11/14/2017 11/30/2021 Essential hypertension 11/30/201510/24 documented as of this encounter (statuses as of 05/28/2023) [facility] History of Past illness Narrative* Problem Noted Date Diagnosed Date Resolved Date Benign paroxysmal positional vertigo 11/14/2017 11/30/2021 Essential hypertension 11/30/201510/24 documented as of this encounter (statuses as of 05/30/2023) [facility] History of Past illness Narrative* Problem Noted Date Diagnosed Date Resolved Date Benign paroxysmal positional vertigo 11/14/2017 11/30/2021 Essential hypertension 11/30/201510/24 documented as of this encounter (statuses as of 05/31/2023) [facility] of Past illness Narrative* Problem Noted Date Diagnosed Date Resolved Date Benign paroxysmal positional vertigo 11/14/2017 11/30/2021 Essential hypertension 11/30/201510/24 documented as of this encounter (statuses as of 06/05/2023) [facility] of Past illness Narrative* Problem Noted Date Diagnosed Date Resolved Date Benign paroxysmal positional vertigo 11/14/2017 11/30/2021 Essential hypertension 11/30/201510/24 documented as of this encounter (statuses as of 07/10/2023) [facility] of Past illness Narrative* Problem Noted Date Diagnosed Date Resolved Date Benign paroxysmal positional vertigo 11/14/2017 11/30/2021 Essential hypertension 11/30/201510/24 documented as of this encounter (statuses as of 08/01/2023) [facility] of Past illness Narrative* Problem Noted Date Diagnosed Date Resolved Date Benign paroxysmal positional vertigo 11/14/2017 11/30/2021 Essential hypertension 11/30/201510/24 documented as of this encounter (statuses as of 08/28/2023) [facility] of Past illness Narrative* Problem Noted Date Diagnosed Date Resolved Date Benign paroxysmal positional vertigo 11/14/2017 11/30/2021 Essential hypertension 11/30/201510/24 documented as of this encounter (statuses as of 08/31/2023) [facility] of Past illness Narrative* Problem Noted Date Diagnosed Date Resolved Date Benign paroxysmal positional vertigo 11/14/2017 11/30/2021 Essential hypertension 11/30/201510/24 documented as of this encounter (statuses as of 09/23/2023) [facility] of Past illness Narrative* Problem Noted Date Diagnosed Date Resolved Date Benign paroxysmal positional vertigo 11/14/2017 11/30/2021 Essential hypertension 11/30/201510/24 documented as of this encounter (statuses as of 09/23/2023) [place] [address]27-2017 History of Past illness Narrative* Problem Noted Date Diagnosed Date Resolved Date Benign paroxysmal positional vertigo 11/14/2017 11/30/2021 Essential hypertension 11/30/201510/24 documented as of this encounter (statuses as of 09/23/2023) [address]27-2017 History of Past illness Narrative* Problem Noted Date Diagnosed Date Resolved Date Benign paroxysmal positional vertigo 11/14/2017 11/30/2021 Essential hypertension 11/30/201510/24 documented as of this encounter (statuses as of 09/23/2023) [facility] History of Past illness Narrative* Problem Noted Date Diagnosed Date Resolved Date Benign paroxysmal positional vertigo 11/14/2017 11/30/2021 Essential hypertension 11/30/201510/24 documented as of this encounter (statuses as of 09/23/2023) [place] [address]27-2017 History of Past illness Narrative* Problem Noted Date Diagnosed Date Resolved Date Benign paroxysmal positional vertigo 11/14/2017 11/30/2021 Essential hypertension 11/30/201510/24 documented as of this encounter (statuses as of 10/04/2023) [address]27-2017 History of Past illness Narrative* Problem Noted Date Diagnosed Date Resolved Date Benign paroxysmal positional vertigo 11/14/2017 11/30/2021 Essential hypertension 11/30/201510/24 documented as of this encounter (statuses as of 12/21/2023) [facility] of Past illness Narrative* Problem Noted Date Diagnosed Date Resolved Date Benign paroxysmal positional vertigo 11/14/2017 11/30/2021 Essential hypertension 11/30/201510/24 documented as of this encounter (statuses as of 12/27/2023) [facility] History of Past illness Narrative* Problem Noted Date Diagnosed Date Resolved Date Benign paroxysmal positional vertigo 11/14/2017 11/30/2021 Essential hypertension 11/30/201510/24 documented as of this encounter (statuses as of 01/16/2024) [place] [address]27-2017 History of Past illness Narrative* Problem Noted Date Diagnosed Date Resolved Date Benign paroxysmal positional vertigo 11/14/2017 11/30/2021 Essential hypertension 11/30/201510/24 documented as of this encounter (statuses as of 01/23/2024) [place] [address]27-2017 History of Past illness Narrative* Problem Noted Date Diagnosed Date Resolved Date Benign paroxysmal positional vertigo 11/14/2017 11/30/2021 Essential hypertension 11/30/201510/24 documented as of this encounter (statuses as of 01/28/2024) [facility] of Past illness Narrative* Problem Noted Date Diagnosed Date Resolved Date Benign paroxysmal positional vertigo 11/14/2017 11/30/2021 Essential hypertension 11/30/201510/24 documented as of this encounter (statuses as of 01/30/2024) [facility] History of Past illness Narrative* Problem Noted Date Diagnosed Date Resolved Date Benign paroxysmal positional vertigo 11/14/2017 11/30/2021 Essential hypertension 11/30/201510/24 documented as of this encounter (statuses as of 02/05/2024) [facility] History of Past illness Narrative* Problem Noted Date Diagnosed Date Resolved Date Benign paroxysmal positional vertigo 11/14/2017 11/30/2021 Essential hypertension 11/30/201510/24 documented as of this encounter (statuses as of 02/07/2024) [facility] History of Past illness Narrative* Problem Noted Date Diagnosed Date Resolved Date Benign paroxysmal positional vertigo 11/14/2017 11/30/2021 Essential hypertension 11/30/201510/24 documented as of this encounter (statuses as of 02/22/2024) [facility] History of Past illness Narrative* Problem Noted Date Diagnosed Date Resolved Date Benign paroxysmal positional vertigo 11/14/2017 11/30/2021 Essential hypertension 11/30/201510/24 documented as of this encounter (statuses as of 03/06/2024) [facility] History of Past illness Narrative* Problem Noted Date Diagnosed Date Resolved Date Benign paroxysmal positional vertigo 11/14/2017 11/30/2021 Essential hypertension 11/30/201510/24 documented as of this encounter (statuses as of 03/07/2024) [facility] Author Michaela Joshua [facility] Note Date/Time May 21, 2025 12:18 pm [facility] Medical Records Department [address] [place] [id number] Discharge Summary 05/21/25 1134 MR#: [id number] Acct: [id number] Name: GELY NEWMAN Rep #:[id number] : 1950 75 From: Michaela Joshua DO PCP: Dr. Rishi Vasquez DO Status:AD M IN [place] [id number] Providers Date of Admission: 05/18/25 Primary Care Physician: Dr. Rishi Vasquez DO Consultations 05/18/25 03:19 Consult: Infectious Disease Routine Consulting Provider: Kwaku Mendoza Reason for Consult: Infected diabetic foot wounds EMERGENT Consult: No MD Notified: Yes Date Notified: 05/18/25 Time Notified: 08:30 Method of Notification: Answering Service Consult: Onc/Wound/software configuration manager Routine Comment: Consult: Podiatry Routine Consulting Provider: [...] Method of Notification: Text 05/18/25 07:08 Consult: Property Man / Pulmonary Medicine Routine Consulting Provider: Intensivists/Pulmonary [...] peripheral vascular disease who presents emergency department [facility] on 05/18/2025 with achief complaint of debility [...] day previous while she was coming to thehouse at about 11:15 AM. She was found [...] have no beds available. We did offer [place] transitional care unit and she stated this was too far away and did not want to go there. Unfortunately, she is out of network for the transitionalcare unit in [place]. Given the fact that she refused to [...] (Auto) 64.8, Lymph % (Auto) 17.7 L, [place] % (Auto) 13.6 H, E[place] % (Auto) [...] See Referral Note (Per Dr. Irene recommendations) Russell Clement MD [Med Staff - Active Staff] - See Referral Note (For surgery on Sunday) Disposition Disposition (needs filled in before D/C Order can be placed): Home Health Service Charges/Coding Visit Charges Inpatient E&M: 62145 Disch Hosp >30min 05/21/25 1218 <Electronically signed by Michaela Joshua DO> Cosigner Signature (if applicable): CC: Dr. Rishi Vasquez DO; Dr. Michaela Joshua DO~ Signed [facility] Work Phone: Evaluation note* Diagnosis Onset Date Resolution Status Personal history of colonic polyps acute Carotid artery stenosis acut e Essential hypertension acute Atherosclerosis of coronary artery of [place] heart without angina pectoris chronic Hyperlipidemia chronic Peripheral vascular occlusive disease chronic [facility] Work Phone: Evaluation note* Diagnosis Essential hypertension Unspecified essential hypertension documented in this encounter [facility] note* Diagnosis Peripheral vascular occlusive disease (HCC)- Primary Peripheral vascular disease, unspecified documented in this encounter [facility] note* Diagnosis Peripheral vascular occlusive disease (HCC) Peripheral vascular disease, unspecified documented in this encounter [facility] note* Diagnosis Essential hypertension Unspecified essential hypertension documented in this encounter [facility] note* Diagnosis Diabetes mellitus type 2 [...] arthropathy, multiple sites Coronary artery disease involving [place] heart, unspecified vessel or lesion type, unspecified whether angina present Fatigue, unspecified type documented in this encounter [facility] note* Diagnosis Encounter for screening mammogram for malignant neoplasm of breast Other screening mammogram documented in this encounter [facility] note* Diagnosis Abnormal mammogram- Primary Abnormal mammogram, unspecified documented in this encounter [facility] note* Diagnosis Acute pain of right shoulder- Primary documented in this encounter [facility] noteNo assessment information availableWMcKitrick [facility] Work Phone: Evaluation note* Diagnosis Onset Date Resolution Status Carotid artery stenosis acut e [facility] Work Phone: Evaluation note* Diagnosis Injury of sternum, initial encounter- Primary Wrist injury, right, initial encounter documented in this encounter [facility] note* Diagnosis Onset Date Resolution Status Carotid artery stenosis director of photography vipul Atherosclerosis of coronary artery of [place] heart without angina pectoris chronic Carotid artery stenosis director of photography vipul Essential hypertension chron ic Hyperlipidemia chronic Peripheral vascular occlusive disease [facility] Work Phone: Evaluation note* Diagnosis Low TSH level- Primary Nonspecific abnormal results of thyroid function study Abnormal thyroid biopsy Abnormal thyroid blood test Nonspecific abnormal results of thyroid function study Borderline abnormal thyroid function test Nonspecific abnormal results of thyroid function study documented in this encounter [facility] note* Diagnosis Acute cystitis with hematuria- Primary Acute cystitis documented [facility]* Diagnosis Onset Date Resolution Status Atherosclerosis of coronary artery of [place] heart without angina pectoris chronic Carotid artery stenosis director of photography vipul Essential hypertension chron ic Hyperlipidemia chronic Peripheral vascular occlusive disease [facility] Work Phone: Evaluation note* Diagnosis Diabetes mellitus [...] stage 3a (HCC) documented [facility] encounter [facility]* Diagnosis Diabetes mellitus type 2 with peripheral artery disease Type II or unspecified type diabetes mellitus with peripheral circulatory disorders, not stated as uncontrolled [facility] encounter [facility]* Diagnosis Encounter for screening mammogram for malignant neoplasm of breast- Primary Other screening mammogram [facility] Diagnosis 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) Type II or unspecified type diabetes mellitus with peripheral circulatory disorders, not stated as uncontrolled [facility]* Diagnosis Peripheral vascular occlusive disease (HCC) Peripheral vascular disease, unspecified [facility]* Diagnosis Abnormal mammogram- Primary Abnormal mammogram, unspecified [facility]* Diagnosis Dysuria- Primary Acute cystitis with [...] sites [facility]* Diagnosis Onset Date Resolution Status Atherosclerosis of coronary artery of [place] heart without angina pectoris chronic Carotid artery stenosis director of photography vipul Essential hypertension chron ic Hyperlipidemia chronic Peripheral vascular occlusive disease chronic Carotid artery 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 Peripheral vascular occlusive disease [facility] Work Phone: Evaluation note* Diagnosis Encounter for screening mammogram for malignant neoplasm of breast Other screening mammogram documented in this encounter [facility] note* Diagnosis Abnormal mammogram Abnormal mammogram, unspecified documented in this encounter [facility] note* Diagnosis Abnormal mammogram Abnormal mammogram, unspecified [facility]* Diagnosis Abnormal thyroid function test Nonspecific abnormal results of thyroid function study documented in this encounter [facility] note* Diagnosis Peripheral vascular occlusive disease (HCC) Peripheral vascular disease, unspecified [facility]* Diagnosis Multiple thyroid nodules Nontoxic multinodular goiter documented [facility] this [facility]* Diagnosis Chronic midline low back pain without sciatica documented [facility]* Diagnosis Chronic bilateral low back pain with bilateral sciatica- Primary documented [facility]* Diagnosis Peripheral vascular occlusive disease (HCC) Peripheral vascular disease, unspecified [facility]* Diagnosis Chronic bilateral low back pain with bilateral sciatica- Primary [facility]* Diagnosis Onset Date Resolution Status Systolic murmur acute Atherosclerosis of coronary artery of [place] heart without angina pectoris chronic Essential hypertension chron ic Hyperlipidemia chronic [facility] Work Phone: Evaluation note* Diagnosis Chronic midline low back pain without sciatica- Primary [facility]* Diagnosis Multiple thyroid nodules- Primary Nontoxic multinodular goiter [facility]* Diagnosis Chronic bilateral low back pain with bilateral sciatica- Primary documented [facility]* Diagnosis Chronic bilateral low back pain with bilateral sciatica- Primary documented [facility]* Diagnosis Multiple thyroid nodules- Primary Nontoxic [...] Fatigue, unspecified type documented in this encounter [facility] note* Diagnosis Encounter for screening mammogram for malignant neoplasm of breast Other screening mammogram documented [facility]* Diagnosis Chronic midline low back pain [...] Nontoxic multinodular goiter documented [facility]* Diagnosis Chronic midline low back pain without sciatica [facility]* Diagnosis Injury of sternum, initial encounter Wrist injury, right, initial encounter documented [facility] this [facility]* Diagnosis Acute pain of right shoulder documented [facility] this encounter [facility]* Diagnosis Diabetes mellitus type 2 with [...] sites [facility] Diagnosis Essential hypertension Unspecified essential hypertension documented in this encounter [facility] note* Diagnosis Hospital discharge follow-up- Primary Other follow-up examination Diabetic foot ulcer associated with type 2 diabetes mellitus, unspecified laterality, unspecified part of foot, unspecified ulcer stage (HCC) Abnormality of gait Falling episodes Lack of coordination [facility] Diagnosis 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)- Primary Type II or unspecified type diabetes mellitus with peripheral circulatory disorders, not stated as uncontrolled Hyperglycemia Other abnormal glucose [facility] Maddie Merchant [facility] Note Date/Time May 18, 2025 2:32 am [facility] Medical Records Department [address] [place] [address] H&P Exam - Hospitalist 05/18/25 0201 MR#: [id number] Acct: [id number] Name: GELY NEWMAN Rep #:[id number] : 1950 75 From: Maddie Merchant MD PCP: Dr. Rishi Vasquez, DO Status:AD M IN Location: [id number] HPI - General General Date of Admission: [...] has been rubbing who presents to the [facility] ED on 05/18/2025 with generalized weakness, fatigue, [...] gas with possibly cellulitis with postoperative changes. [facility] Medical History History of MRSA infection Pressure ulcer Ambulates with cane Shortness of breath on exertion History of edema History of echocardiogram Fall Atherosclerosis of [place] artery of both lower extremities with gangrene [...] stage 3 Atherosclerosis of coronary artery of [place] heart without angina pectoris Hyperlipidemia Peripheral vascular [...] D PRN rash 05/07/25 Unknown History powder ([facility]) acetaminophen 650 mg 650 mg PO Q12H PRN pain 04/20 Unknown History tablet,extended release amlodipine 5 mg tablet 5 mg PO DAILY HTN #90 tabs 0 05/12/25 Unknown Rx metoprolol succinate 25 mg 12.5 mg (1/2 x 25 mg) PO DA [facility] 05/12/25 Unknown Rx tablet,extended release 24 hr [...] 80.8 H, Lymph % (Auto) 7.4 L, [place] % (Auto) 10.6 H, Eos % (Auto) [...] Clarity Cloudy, Urine pH 5.0, Ur Specific [place] 1.020, Urine Protein 100 H, Urine Glucose [...] IMPRESSION: No acute chest findings. 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 Soft tissue swelling, without obvious soft tissue gas. Possible cellulitis. Reading Location: [facility]-2 Assessment & Plan Assessment/Plan (1) Acute [...] has been rubbing who presents to the [facility] ED on 05/18/2025 with generalized weakness, fatigue, [...] add if deferred. #15. CODE status: Patient VICTOR MANUEL she thinks is her sister but she is uncertain and she believes living will may be in place. Discussed CODE status at length including difference between FULL code, DNR-CCA and DNR-CC status. Following discussions about the differences in these status, requested Full Code status. Advanced Care Planning Face to Face Time: 16 minutes. Charges/Coding Visit Charges Inpatient E&M: 99013 Init Hosp L3 Procedures Hospitalists Procedures: 39244 Advncd Care Plan 30 Min 05/18/25 0232 <Electronically signed by Maddie Merchant MD> Cosigner Signature (if applicable): CC: Dr. Maddie Mercahnt MD; Dr. Rishi Vasquez DO~ Signed [facility] Work Phone: Hospital Discharge instructionsAdditional Instructions Bilateral [...] toe-touch touch [facility] Work [facility]: Reason for referral (narrative)* Diagnostic Procedure Only (Routine) - Closed Specialty Diagnoses / Procedures Referred By Contac t Referred To Contact BR IMAGING Diagnoses Encounter for screening mammogram for malignant neoplasm of breast Procedures ALEJANDRO SCREENING SCREENING MAMMOGRAPHY BI 2-VIEW BREAST INC CAD Rishi Vasquez, [address] [place] [address] [facility] Imaging [address] [place] [address] Referral ID Status Reason Start Date Expiration Date V isits Requested Visits Authorized [id number] Closed Auto-Generate d Referral 12/05/2021 01/04/2023 1 1 [facility] for referral (narrative)* Diagnostic Procedure Only (Routine) - Authorized Specialty Diagnoses / Procedures Referred By Contac t Referred To Contact BR IMAGING Diagnoses Abnormal mammogram Procedures US BREAST LTD RT US BREAST UNI REAL TIME WITH IMAGE LIMITED Yani Watts APRN.SHIRT MARKER [address] [place] [address] [facility] [address] [place] [address] Referral ID Status Reason Start Date Expiration Date Visits Requested Visits Authorized [id number] Authorized Auto-Generat ed Referral 06/05/2022 07/05/2023 1 1 * Diagnostic Procedure Only (Routine) - Authorized Specialty Diagnoses / Procedures Referred By Leeannaac t Referred To Contact BR IMAGING Diagnoses Abnormal mammogram Procedures ALEJANDRO DIAGNOSTIC RT DIAGNOSTIC MAMMOGRAPHY COMPUTER-AIDED DETCJ UNI Yani Watts APRN.SHIRT MARKER [address] [place] [address] [facility] [address] [place] [address] Referral ID Status Reason Start Date Expiration Date Visits Requested Visits Authorized [id number] Authorized Auto-Generat ed Referral 06/05/2022 07/05/2023 1 1 [facility] for referral (narrative)* Diagnostic Procedure Only (Urgent) - Closed Specialty Diagnoses / Procedures Referred By Viraj t Referred To Contact XR IMAGING Diagnoses Acute pain of right shoulder Procedures XR SHOULDER GENERAL 3V OR MORE AP/TRUE AP/OTHER RIGHT RADEX SHOULDER COMPLETE MINIMUM 2 VIEWS Kena Sims IRON INSTALLER.SHIRT MARKER [address] [place] [address] Xr Imaging Referral ID Status Reason Start Date Expiration Date V isits Requested Visits Authorized [id number] Closed Auto-Generate d Referral 06/17/2022 07/17/2023 1 1 [facility] for referral (narrative)* Diagnostic Procedure Only (Urgent) - Closed Specialty Diagnoses / Procedures Referred By Contac t Referred To Contact XR IMAGING Diagnoses Wrist injury, right, initial encounter Procedures XR WRIST INJURY 4V PA/LAT/OBL/SCAPH RIGHT RADEX WRIST COMPLETE MINIMUM 3 VIEWS Camille Mitchell PA-C [address] [place] [address] Xr Imaging Referral ID Status Reason Start Date Expiration Date V isits Requested Visits Authorized [id number] Closed Auto-Generate d Referral 08/15/2022 09/14/2023 1 1 * Diagnostic Procedure Only (Urgent) - Closed Specialty Diagnoses / Procedures Referred By Contac t Referred To Contact XR IMAGING Diagnoses Injury of sternum, initial encounter Procedures XR STERNUM 2V BARAJAS/LAT RADEX STERNUM MINIMUM 2 VIEWS Camille Mitchell PA-C [address] [place] [address] Xr Imaging Referral ID Status Reason Start Date Expiration Date V isits Requested Visits Authorized [id number] Closed Auto-Generate d Referral 08/15/2022 09/14/2023 1 1 [facility] for referral (narrative)* Outpatient Procedure (Routine) - Authorized Specialty Diagnoses / Procedures Referred By Contac t Referred To Contact [facility] Diagnoses Carotid atherosclerosis, bilateral Procedures US CAROTID ARTERIES [facility] DUPLEX SCAN EXTRACRANIAL ART COMPL BI STUDY Rishi Vasquez DO [address] [place] [address] [facility] [place] [address] [place] [address] Referral ID Status Reason Start Date Expiration Date Visits Requested Visits Authorized [id number] Authorized Auto-Generat ed Referral 12/05/2022 12/05/2023 1 1 [facility] for referral (narrative)* Diagnostic Procedure Only (Routine) - Pending Review Specialty Diagnoses / Procedures Referred By Contac t Referred To Contact BR IMAGING Diagnoses Encounter for screening mammogram for malignant neoplasm of breast Procedures ALEJANDRO SCREENING SCREENING MAMMOGRAPHY BI 2-VIEW BREAST INC Clary Huerta, YAEL [address] [place] [address] [facility] Imaging [address] [place] [phone] Referral ID Status Reason Start Date Expiration Date Visits Requested Visits Authorized [id number] Pending Review Auto-Generat ed Referral 02/07/2023 03/06/2024 1 1 [facility] for referral (narrative)* Diagnostic Procedure Only (Routine) - Authorized Specialty Diagnoses / Procedures Referred By Viraj t Referred To Contact BR IMAGING Diagnoses Abnormal mammogram Procedures US BREAST LTD RIGHT US BREAST UNI REAL TIME WITH IMAGE LIMITED Danyelle Tripp PA-C [address] [place] [address] [facility] [address] [place] [phone] Referral ID Status Reason Start Date Expiration Date Visits Requested Visits Authorized [id number] Authorized Auto-Generat ed Referral 05/29/2023 06/27/2024 1 1 * Diagnostic Procedure Only (Routine) - Authorized Specialty Diagnoses / Procedures Referred By Viraj t Referred To Contact BR IMAGING Diagnoses Abnormal mammogram Procedures ALEJANDRO DIAGNOSTIC RIGHT DIAGNOSTIC MAMMOGRAPHY COMPUTER-AIDED DETCJ UNI Danyelle Tripp PA-C [address] [place] [address] [facility] [address] [place] [address] Referral ID Status Reason Start Date Expiration Date Visits Requested Visits Authorized [id number] Authorized Auto-Generat ed Referral 05/29/2023 06/27/2024 1 1 [facility] for referral (narrative)* Diagnostic Procedure Only (Routine) - Closed Specialty Diagnoses / Procedures Referred By Contac t Referred To Contact BR IMAGING Diagnoses Encounter for screening mammogram for malignant neoplasm of breast Procedures ALEJANDRO SCREENING SCREENING MAMMOGRAPHY BI 2-VIEW BREAST INC Clary Huerta, TAY.SHIRT MARKER [address] [place] [address] [facility] [address] [place] [phone] Referral ID Status Reason Start Date Expiration Date V isits Requested Visits Authorized [id number] Closed Auto-Generate d Referral 02/07/2023 03/06/2024 1 1 [facility] for referral (narrative)* Diagnostic Procedure Only (Routine) - Closed Specialty Diagnoses / Procedures Referred By Contac t Referred To Contact [facility] IMAG[facility] Diagnoses Abnormal mammogram Procedures US BREAST LTD RIGHT US BREAST UNI REAL TIME WITH IMAGE LIMITED Danyelle Tripp PA-C [address] [place] [address] [facility] [address] [place] [address] Referral ID Status Reason Start Date Expiration Date V isits Requested Visits Authorized [id number] Closed Auto-Generate d Referral 05/29/2023 06/27/2024 1 1 T [facility] for referral (narrative)* Diagnostic Procedure Only (Routine) - Closed Specialty Diagnoses / Procedures Referred By Viraj t Referred To Contact [facility] FUNCTIONAL [facility] Diagnoses Abnormal thyroid function test Procedures NM THY UPTAKE AND SCAN THYROID UPTAKE W/BLOOD FLOW SNGLE/MULT JAMARI NATALIA Rishi Vaqsuez, DO [address] [place] [address] Molecular & Functional Imaging [address] [place] [address] Referral ID Status Reason Start Date Expiration Date V isits Requested Visits Authorized [id number] Closed Auto-Generate d Referral 12/15/2022 01/14/2024 1 1 [facility] for referral (narrative)* Diagnostic Procedure Only (Routine) - Closed Specialty Diagnoses / Procedures Referred By Contac t Referred To Contact US IMAGING Diagnoses Abnormal thyroid function test Procedures US THYROID/PARATHYROID US SOFT TISSUE HEAD & NECK REAL TIME IMGE DOCM Rishi Vasquez DO [address] [place] [address] [place] [address] Referral ID Status Reason Start Date Expiration Date V isits Requested Visits Authorized [id number] Closed Auto-Generate d Referral 12/15/2022 01/14/2024 1 1 [facility] for referral (narrative)* Diagnostic Procedure Only (Routine) - Closed Specialty Diagnoses / Procedures Referred By Contac t Referred To Contact XR IMAGING Diagnoses Chronic midline low back pain without sciatica Procedures XR LUMBAR GENERAL 3V AP/LAT/L5-S1 RADEX SPINE LUMBOSACRAL 2/3 VIEWS Rishi Vasquez DO [address] [place] [address] [place] [address] Referral ID Status Reason Start Date Expiration Date V isits Requested Visits Authorized [id number] Closed Auto-Generate d Referral 12/05/2023 01/03/2025 1 1 [facility] for referral (narrative)* Diagnostic Procedure Only (Urgent) - Closed Specialty Diagnoses / Procedures Referred By Contac t Referred To Contact XR IMAGING Diagnoses Wrist injury, right, initial encounter Procedures XR WRIST INJURY 4V PA/LAT/OBL/SCAPH RIGHT RADEX WRIST COMPLETE MINIMUM 3 VIEWS Camille Mitchell PA-C [address] [place] [address] [place] [address] Referral ID Status Reason Start Date Expiration Date V isits Requested Visits Authorized [id number] Closed Auto-Generate d Referral 08/15/2022 09/14/2023 1 1 * Diagnostic Procedure Only (Urgent) - Closed Specialty Diagnoses / Procedures Referred By Contac t Referred To Contact XR IMAGING Diagnoses Injury of sternum, initial encounter Procedures XR STERNUM 2V BARAJAS/LAT RADEX STERNUM MINIMUM 2 VIEWS Camille Mitchell PA-C [address] [place] [address] [place] [address] Referral ID Status Reason Start Date Expiration Date V isits Requested Visits Authorized [id number] Closed Auto-Generate d Referral 08/15/2022 09/14/2023 1 1 [facility] for referral (narrative)* Diagnostic Procedure Only (Urgent) - Closed Specialty Diagnoses / Procedures Referred By Contac t Referred To Contact XR IMAGING Diagnoses Acute pain of right shoulder Procedures XR SHOULDER GENERAL 3V OR MORE AP/TRUE AP/OTHER RIGHT RADEX SHOULDER COMPLETE MINIMUM 2 VIEWS Kena Schrader APRN.CNP [address] [place] [address] [place] [address] Referral ID Status Reason Start Date Expiration Date V isits Requested Visits Authorized [id number] Closed Auto-Generate d Referral 06/17/2022 07/17/2023 1 1 [facility] for referral (narrative)* Diagnostic Procedure Only (Routine) - Authorized Specialty Diagnoses / Procedures Referred By Contac t Referred To Contact BR IMAGING Diagnoses Encounter for screening mammogram for malignant neoplasm of breast Procedures ALEJANDRO SCREENING W BEN SCREENING DIGITAL BREAST TOMOSYNTHESIS BI SCREENING MAMMOGRAPHY BI 2-VIEW BREAST INC CAD Vasquez, Rishi L, DO [address] [place] [address] [facility] [address] [place] [address] Referral ID Status Reason Start Date Expiration Date Visits Requested Visits Authorized [id number] Authorized Auto-Generat ed Referral 12/05/2024 01/04/2026 1 1 [facility] for referral (narrative)No reason for referral information availableWMcKitrick [facility] Work Phone: Reason for visit Narrative* Diagnostic Procedure Only (Routine) - Closed Specialty Diagnoses / Procedures Referred By Contac t Referred To Contact BR IMAGING Diagnoses Encounter for screening mammogram for malignant neoplasm of breast Procedures ALEJANDRO SCREENING SCREENING MAMMOGRAPHY BI 2-VIEW BREAST INC CAD Rishi Vasquez, DO [address] [place] [address] [facility] [address] [place] [address] Referral ID Status Reason Start Date Expiration Date V isits Requested Visits Authorized [id number] Closed Auto-Generate d Referral 12/05/2021 01/04/2023 1 1 [facility] for visit Narrative* Diagnostic Procedure Only (Routine) - Closed Specialty Diagnoses / Procedures Referred By Contac t Referred To Contact BR IMAGING Diagnoses Encounter for screening mammogram for malignant neoplasm of breast Procedures ALEJANDRO SCREENING SCREENING MAMMOGRAPHY BI 2-VIEW BREAST INC CAD Clary Andres, TAY.SHIRT MARKER [address] [place] [address] [facility] [address] [place] [address] Referral ID Status Reason Start Date Expiration Date V isits Requested Visits Authorized [id number] Closed Auto-Generate d Referral 02/07/2023 03/06/2024 1 1 [facility] for visit Narrative* Diagnostic Procedure Only (Routine) - Closed Specialty Diagnoses / Procedures Referred By Contac t Referred To Contact BR IMAGING Diagnoses Abnormal mammogram Procedures ALEJANDRO DIAGNOSTIC RIGHT DIAGNOSTIC MAMMOGRAPHY COMPUTER-AIDED DETCJ UNI Danyelle Tripp PA-C [address] [place] [address] [facility] [address] [place] [address] Referral ID Status Reason Start Date Expiration Date V isits Requested Visits Authorized [id number] Closed Auto-Generate d Referral 05/29/2023 06/27/2024 1 1 [facility] for visit Narrative* Diagnostic Procedure Only (Routine) - Closed Specialty Diagnoses / Procedures Referred By Viraj t Referred To Contact [facility]LECULAR [facility] FUNCTIONAL IMAGING Diagnoses Abnormal thyroid function test Procedures NM THY UPTAKE AND SCAN THYROID UPTAKE W/BLOOD FLOW SNGLE/MULT JAMARI NATALIA Rishi Vasquez, DO [address] [place] [address] Molecular [facility] Functional Imaging [address] [place] [address] Referral ID Status Reason Start Date Expiration Date V isits Requested Visits Authorized [id number] Closed Auto-Generate d Referral 12/15/2022 01/14/2024 1 1 [facility] for visit Narrative* Diagnostic Procedure Only (Routine) - Closed Specialty Diagnoses / Procedures Referred By Viraj banegas Referred To Contact [facility] Diagnoses Encounter for screening mammogram for malignant neoplasm of breast Procedures ALEJANDRO SCREENING W BEN SCREENING DIGITAL BREAST TOMOSYNTHESIS BI SCREENING MAMMOGRAPHY BI 2-VIEW BREAST INC CAD Rishi Vasquez, DO [address] [place] [address] [facility] [address] [place] [address] Referral ID Status Reason Start Date Expiration Date V isits Requested Visits Authorized [id number] Closed Auto-Generate d Referral 12/05/2023 01/03/2025 1 1 [facility] for visit Narrative* Diagnostic Procedure Only (Routine) - Closed Specialty Diagnoses / Procedures Referred By Viraj t Referred To Contact XR IMAGING Diagnoses Chronic midline low back pain without sciatica Procedures XR LUMBAR GENERAL 3V AP/LAT/L5-S1 RADEX SPINE LUMBOSACRAL 2/3 VIEWS Rishi Vasquez, DO [address] [place] [address] [place] [address] Referral ID Status Reason Start Date Expiration Date V isits Requested Visits Authorized [id number] Closed Auto-Generate d Referral 12/05/2023 01/03/2025 1 1 [facility] for visit Narrative* Diagnostic Procedure Only (Urgent) - Closed Specialty Diagnoses / Procedures Referred By Contac t Referred To Contact XR IMAGING Diagnoses Wrist injury, right, initial encounter Procedures XR WRIST INJURY 4V PA/LAT/OBL/SCAPH RIGHT RADEX WRIST COMPLETE MINIMUM 3 VIEWS Camille Mitchell, PA-C [address] [place] [address] [place] [address] Referral ID Status Reason Start Date Expiration Date V isits Requested Visits Authorized [id number] Closed Auto-Generate d Referral 08/15/2022 09/14/2023 1 1 [facility] for visit Narrative* Diagnostic Procedure Only (Urgent) - Closed Specialty Diagnoses / Procedures Referred By Contac t Referred To Contact XR IMAGING Diagnoses Acute pain of right shoulder Procedures XR SHOULDER GENERAL 3V OR MORE AP/TRUE AP/OTHER RIGHT RADEX SHOULDER COMPLETE MINIMUM 2 VIEWS Kena Schrader M, IRON INSTALLER.SHIRT MARKER [address] [place] [address] [place] [address] Referral ID Status Reason Start Date Expiration Date V isits Requested Visits Authorized [id number] Closed Auto-Generate d Referral 06/17/2022 07/17/2023 1 1 [facility] Chief Complaint and Reason for Visit Chief Complaint 2020 CARDIAC REHAB P HASE III MAINTENANCE-SELF PAY PHASE III MAINTENANCE SELF-PAY COLONOSCOPY PHASE III MAINTENANCE SELF-PAY 6 M FU / R/S FROM 2-7 MMM PHASE III MAINTENANCE SELF-PAY Reason for Visit Personal history of colonic polyps Carotid artery stenosis Essential hypertension Atherosclerosis of coronary artery of [place] heart without angina pectoris Hyperlipidemia Peripheral vascular occlusive disease Chief Complaint PHASE III MA INTENANCE SELF-PAY COLONOSCOPY PHASE III MAINTENANCE SELF-PAY 6 M FU / R/S FROM 2-7 MMM PHASE III MAINTENANCE SELF-PAY PHASE III MAINTENANCE SELF-PAY Reason for Visit Personal history of colonic polyps Carotid artery stenosis Essential hypertension Atherosclerosis of coronary artery of [place] heart without angina pectoris Hyperlipidemia Peripheral vascular occlusive disease Chief Complaint COLONOSCOPY PHASE III MAINTENANCE SELF-PAY 6 M FU / R/S FROM 2-7 MMM PHASE III MAINTENANCE SELF-PAY PHASE III MAINTENANCE SELF-PAY PHASE III MAINTENANCE SELF-PAY Reason for Visit Personal history of colonic polyps Carotid artery stenosis Essential hypertension Atherosclerosis of coronary artery of [place] heart without angina pectoris Hyperlipidemia Peripheral vascular [...] steno sis Atherosclerosis of coronary artery of [place] heart without angina pectoris Carotid artery stenosis Essential hypertension Hyperlipidemia Peripheral vascular occlusive disease Chief Complaint PHASE III MA INTENANCE SELF-PAY CAROTID STENOSIS BILAT CAROTID U/S 06/22 PHASE III MAINTENANCE SELF-PAY 6 M FU PHASE III MAINTENANCE SELF-PAY PHASE III MAINTENANCE SELF-PAY Reason for Visit Carotid artery steno sis Atherosclerosis of coronary artery of [place] heart without angina pectoris Carotid artery stenosis Essential hypertension Hyperlipidemia Peripheral vascular occlusive disease Chief Complaint CAROTID STENOSIS SADIE AT CAROTID U/S 06/22CR PHASE III MAINTENANCE SELF-PAY 6 M FU PHASE III MAINTENANCE SELF-PAY PHASE III MAINTENANCE SELF-PAY PHASE III MAINTENANCE SELF-PAY Reason for Visit Carotid artery steno sis Atherosclerosis of coronary artery of [place] heart without angina pectoris Carotid artery stenosis Essential hypertension Hyperlipidemia Peripheral vascular occlusive disease Chief Complaint PHASE III MA INTENANCE SELF-PAY 6 M FU 2022-CR PHASE III MAINTENANCE SELF-PAY PHASE III MAINTENANCE SELF-PAY PHASE III MAINTENANCE SELF-PAY PVD PHASE III MAINTENANCE SELF-PAY Reason for Visit Atherosclerosis of c oronary artery of [place] heart without angina pectoris Carotid artery stenosis Essential hypertension Hyperlipidemia Peripheral vascular occlusive disease Chief Complaint 6 M FU PHASE III MAINTENANCE SELF-PAY PHASE III MAINTENANCE SELF-PAY PHASE III MAINTENANCE SELF-PAY PVD PHASE III MAINTENANCE SELF-PAY Reason for Visit Atherosclerosis of c oronary artery of [place] heart without angina pectoris Carotid artery stenosis [...] Visit Atherosclerosis of c oronary artery of [place] heart without angina pectoris Carotid artery stenosis Essential hypertension Hyperlipidemia Peripheral vascular occlusive disease Chief Complaint 2022 PH III Maintena nce Self-Pay 2022 PH III Maintenance Self-Pay 1 Y FU/Prev PFM Pt 2022 PH III Maintenance Self-Pay CAROTID STENOSIS 2022 PH III Maintenance Self-Pay Reason for Visit Atherosclerosis of c oronary artery of [place] heart without angina pectoris Carotid artery stenosis Essential hypertension Hyperlipidemia Peripheral vascular occlusive disease Chief Complaint 2022 PH III Maintena nce Self-Pay 1 Y FU/Prev PFM Pt 2022 PH III Maintenance Self-Pay CAROTID STENOSIS 2022 PH III Maintenance Self-Pay CAROTID YEARLY CHECK 2022 PH III Maintenance Self-Pay Reason for Visit Atherosclerosis of c oronary artery of [place] heart without angina pectoris Carotid artery stenosis [...] Visit Atherosclerosis of c oronary artery of [place] heart without angina pectoris Carotid artery stenosis [...] Systolic murmur Atherosclerosis of coronary artery of [place] heart without angina pectoris Essential hypertension Hyperlipidemia Chief Complaint 2023 PH3 MAINTENANCE SELF PAY 2023 PH3 MAINTENANCE SELF PAY 9 M FU/PREV PFM 2023 PH3 MAINTENANCE SELF PAY Cardiac murmur, unspecified 2023 PH3 MAINTENANCE SELF PAY Reason for Visit Systolic murmur Atherosclerosis of coronary artery of [place] heart without angina pectoris Essential hypertension Hyperlipidemia [...] foot March 07 025 4:25pm Atherosclerosis of [place] of both lower extremities with [...] 6pm Osteomyelitis of left foot March 11, 5:26pm Atherosclerosis of [place] of both lower extremities with [...] April 03, 2025 10:32 am Atherosclerosis of [place] arteries of [place] April [...] foot March 07 025 4:25pm Atherosclerosis of [place] of both lower extremities with [...] left foot March 11 5:26pm Atherosclerosis of [place] of both lower extremities with [...] April 03, 2025 10:32 am Atherosclerosis of [place] arteries of [place] April 15, 2025 10:51am Atherosclerosis of [place] arteries of [place] April [...] April 03, 2025 10:32 am Atherosclerosis of [place] arteries of [place] April 15, 2025 10:51am Atherosclerosis of [place] arteries of [place] April [...] April 03, 2025 10:32 am Atherosclerosis of [place] arteries of [place] April 15, 2025 10:51am Atherosclerosis of [place] arteries of [place] April [...] April 03, 2025 10:32 am Atherosclerosis of [place] arteries of [place] April 15, 2025 10:51am Atherosclerosis of [place] arteries of [place] April [...] foot March 07 025 4:25pm Atherosclerosis of [place] of both lower extremities with [...] left foot March 11 5:26pm Atherosclerosis of [place] of both lower extremities with [...] 2025 9:17am Atherosclerosis of coronary artery of [place] heart without angina pectoris May 07, 2025 [...] April 03, 2025 10:32 am Atherosclerosis of [place] arteries of [place] April 15, 2025 10:51am Atherosclerosis of [place] arteries of [place] April [...] April 03, 2025 10:32 am Atherosclerosis of [place] [facility] April 15, 2025 10:51am Atherosclerosis of [place] [facility] April 15, 2025 4:38pm CAROTID [...] April 03, 2025 10:32 am Atherosclerosis of [place] arteries of [place] April 15, 2025 10:51am Atherosclerosis of [place] arteries of [place] April [...] foot March 07 025 4:25pm Atherosclerosis of [place] of both lower extremities with [...] 6pm Osteomyelitis of left foot March 11, 5:26pm Atherosclerosis of [place] of both lower extremities with [...] 2025 9:17am Atherosclerosis of coronary artery of [place] heart without angina pectoris May 07, 2025 [...] April 03, 2025 10:32 am Atherosclerosis of [place] [facility] April 15, 2025 10:51am Atherosclerosis of [place] [facility] April 15, 2025 4:38pm CAROTID STENOSIS April [...] foot March 07 025 4:25pm Atherosclerosis of [place] of both lower extremities with [...] foot March 11 025 5:26pm Atherosclerosis of [place] of both lower extremities with [...] 2025 9:17am Atherosclerosis of coronary artery of [place] heart without angina pectoris May 07, 2025 [...] April 03, 2025 10:32 am Atherosclerosis of [place] arteries of [facility] [place] April 15, 2025 10:51am Atherosclerosis of [place] arteries of [facility] [place] April 15, 2025 4:38pm CAROTID [...] foot March 07 025 4:25pm Atherosclerosis of [place] of both lower extremities with [...] left foot March 11 5:26pm Atherosclerosis of [place] of both lower extremities with [...] 2025 9:17am Atherosclerosis of coronary artery of [place] heart without angina pectoris May 07, 2025 [...] Yes January 18, 2022 10:55am Power of Component Assembler Yes January 18 10:55am Documents on File Type Date Recorded Patient Jewel Inspector Expl anation Advance Directive(s) Advance Directive(s) 10/25/2016 10:12 AM Advance Directive(s) 10/25/2016 10:01 AM Advance Directive(s) 10/11/2016 4:06 PM Documents on File Type Date Recorded Patient Jewel Inspector Expl anation Advance Directive(s) Advance Directive(s) 10/25/2016 10:12 AM Advance Directive(s) 10/25/2016 10:01 AM Advance Directive(s) 10/11/2016 4:06 PM Documents on File Type Date Recorded Patient Jewel Inspector Expl anation Advance Directive(s) 10/25/2016 10:01 AM Documents on File Type Date Recorded Patient Jewel Inspector Expl anation Advance Directive(s) 10/25/2016 10:01 AM Advance Directive Response Recorded Date/ Time Advance Directives Yes October 12:55pm Living Will Yes January 18, 2022 9:55am Power of Component Assembler Yes January 18 9:55am Advance Directive Response Recorded Date/ Time Advance Directives Yes February 11, 3:27pm Living Will Yes February 12, 2024 3:27pm Power of Component Assembler Yes February 11 3:27pm Advance Directive Response Recorded Date/ Time Living Will Yes October 19 1:13am Do you have a Healthcare Power of Component Assembler? Yes October 19, 2024 1:13am Advance Directives Yes April 02 9:13am Advance Directive Response Recorded Date/ Time Living Will Yes October 19 1:13am Do you have a Healthcare Power of Component Assembler? Yes October 19, 2024 1:13am Living Will No March 07, 2025 1:48pm Do you have a Healthcare Power of Component Assembler? No March 07, 2025 1:48pm Advance Directives Yes April 02 9:13am Advance Directive Response Recorded Date/ Time Do you have a Healthcare Pow er of Component Assembler? Yes March 12, 2025 11:42am Name of Medical Power of Component Assembler Julianne hawkins, March 12, 2025 11:42am Living Will No March 07, 2025 5:48pm Do you have a Healthcare Pow er of Component Assembler? No March 07, 2025 5:48pm Advance Directives Yes April 02 9:13am Advance Directive Response Recorded Date/ Time Do you have a Healthcare Pow er of Component Assembler? Yes March 12, 2025 11:42am Name of Medical Power of Component Assembler Julianne hawkins, sister March 12, 2025 11:42am Advance Directives on File Yes March 202024 11:26am Living Will Yes April 15, 2025 1 1:26am Do you have a Healthcare Pow er of Component Assembler? Yes April 15, 2025 11:26am Name of Medical Power of Component Assembler Julianne hawkins April 15, 2025 11:26am Advance Directives Yes April 15 11:26am Living Will No March 07, 2025 5:48pm Do you have a Healthcare Pow er of Component Assembler? No March 07, 2025 5:48pm Advance Directive Response Recorded Date/ Time Do you have a Healthcare Pow er of Component Assembler? Yes March 12, 2025 11:42am Name of Medical Power of Component Assembler Julianne hawkins, sister March 12, 2025 11:42am Advance Directives on File Yes March 202024 11:26am Living Will Yes April 15, 2025 1 1:26am Do you have a Healthcare Pow er of Component Assembler? Yes April 15, 2025 11:26am Name of Medical Power of Component Assembler Julianne hawkins April 15, 2025 11:26am Advance Directives Yes April 15 11:26am Living Will Yes April 02, 2024 9 :13am Do you have a Healthcare Pow er of Component Assembler? Yes April 02, 2024 9:13am Living Will No March 07, 2025 5:48pm Do you have a Healthcare Pow er of Component Assembler? No March 07, 2025 5:48pm Advance Directive Response Recorded Date/ Time Do you have a Healthcare Pow er of Component Assembler? Yes March 12, 2025 11:42am Name of Medical Power of Component Assembler Julianne hawkins, sister March 12, 2025 11:42am Advance Directives on File Yes March 202024 11:26am Living Will Yes April 15, 2025 1 1:26am Do you have a Healthcare Pow er of Component Assembler? Yes April 15, 2025 11:26am Name of Medical Power of Component Assembler Julianne hawkins April 15, 2025 11:26am Advance Directives Yes April 15 11:26am Living Will Yes April 02, 2024 9 :13am Do you have a Healthcare Pow er of Component Assembler? Yes April 02, 2024 9:13am Living Will No March 07, 2025 5:48pm Do you have a Healthcare Pow er of Component Assembler? No March 07, 2025 5:48pm Do you have a Healthcare Pow er of Component Assembler? Yes May 17, 2025 9:43pm Name of Medical Power of Component Assembler Miroslava- sister May 17, 2025 9:43pm Advance Directive Response Recorded Date/ Time Do you have a Healthcare Pow er of Component Assembler? Yes March 12, 2025 11:42am Name of Medical Power of Component Assembler Julianne Louise n, sister March 12, 2025 11:42am Advance Directives on File Yes March 202024 11:26am Living Will Yes April 15, 2025 1 1:26am Do you have a Healthcare Pow er of Component Assembler? Yes April 15, 2025 11:26am Name of Medical Power of Component Assembler Julianne hawkins April 15, 2025 11:26am Advance Directives Yes April 15 11:26am Living Will Yes April 02, 2024 9 :13am Do you have a Healthcare Pow er of Component Assembler? Yes April 02, 2024 9:13am Living Will No March 07, 2025 5:48pm Do you have a Healthcare Pow er of Component Assembler? No March 07, 2025 5:48pm Do you have a Healthcare Pow er of Component Assembler? Yes May 18, 2025 2:15am Name of Medical Power of Component Assembler Miroslava- sister May 17, 2025 9:43pm Reason for Referral Specialty Diagnoses / Procedures Referred By Viraj banegas Referred To Contact [facility] Diagnoses Chronic midline low back pain without sciatica Procedures CONSULT TO PHYSICAL THERAPY PHYSICAL THERAPY EVALUATION HIGH COMPLEX 45 MINS Rishi Vasquez, [address] [place] [address] [facility] [place] [address] [place] [address] Referral ID Status Reason Start Date Expiration Date Visits Requested Visits Authorized [id number] Authorized Auto-Generat ed Referral 11/19/2023 11/18/2024 99 99 Specialty Diagnoses / Procedures Referred By Contac t Referred To Contact General Surgery Diagnoses Multiple thyroid nodules Procedures CONSULT TO GENERAL SURGERY OFFICE/OUTPATIENT NEW HIGH MDM 60 MINUTES Rishi Vasquez, DO [address] [place] [address] Referral ID Status Reason Start Date Expiration Date Visits Requested Visits Authorized [id number] Authorized PCP Requested Referral 01/10/2024 01/09/2025 1 1 Specialty Diagnoses / Procedures Referred By Contac t Referred To Contact Pain Management Diagnoses Chronic midline low back pain without sciatica DDD (degenerative disc disease), lumbar Procedures CONSULT TO PAIN MGT OFFICE/OUTPATIENT NEW HIGH MDM 60 MINUTES Rishi Vasquez, DO [address] [place] [address] Referral ID Status Reason Start Date Expiration Date Visits Requested Visits Authorized [id number] Authorized PCP Requested Referral 06/04/2024 06/04/2025 1 [...] or prosecute any alcohol or drug abuse patient.[facility] the event this information is protected by the Federal Confidentiality of Alcohol and Drug Abuse Patient Records regulations: The Federal rules restrict any use of the information to criminally investigate or prosecute any alcohol or drug abuse patient.[facility] the event this information is protected by the Federal Confidentiality of Alcohol and Drug Abuse Patient Records regulations: The Federal rules restrict any use of the information to criminally investigate or prosecute any alcohol or drug abuse patient.[facility] the event this information is protected by the Federal Confidentiality of Alcohol and Drug Abuse Patient Records regulations: The Federal rules restrict any use of the information to criminally investigate or prosecute any alcohol or drug abuse patient.[facility] the event this information is protected by the Federal Confidentiality of Alcohol and Drug Abuse Patient Records regulations: The Federal rules restrict any use of the information to criminally investigate or prosecute any alcohol or drug abuse patient.[facility] the event this information is protected by the Federal Confidentiality of Alcohol and Drug Abuse Patient Records regulations: The Federal rules restrict any use of the information to criminally investigate or prosecute any alcohol or drug abuse patient.[facility] the event this information is protected by the Federal Confidentiality of Alcohol and Drug Abuse Patient Records regulations: The Federal rules restrict any use of the information to criminally investigate or prosecute any alcohol or drug abuse patient.[facility] the event this information is protected by the Federal Confidentiality of Alcohol and Drug Abuse Patient Records regulations: The Federal rules restrict any use of the information to criminally investigate or prosecute any alcohol or drug abuse patient.[facility] the event this information is protected by the Federal Confidentiality of Alcohol and Drug Abuse Patient Records regulations: The Federal rules restrict any use of the information to criminally investigate or prosecute any alcohol or drug abuse patient.[facility] the event this information is protected by the Federal Confidentiality of Alcohol and Drug Abuse Patient Records regulations: The Federal rules restrict any use of the information to criminally investigate or prosecute any alcohol or drug abuse patient.[facility] the event this information is protected by the Federal Confidentiality of Alcohol and Drug Abuse Patient Records regulations: The Federal rules restrict any use of the information to criminally investigate or prosecute any alcohol or drug abuse patient.[facility] the event this information is protected by the Federal Confidentiality of Alcohol and Drug Abuse Patient Records regulations: The Federal rules restrict any use of the information to criminally investigate or prosecute any alcohol or drug abuse patient.[facility] the event this information is protected by the Federal Confidentiality of Alcohol and Drug Abuse Patient Records regulations: The Federal rules restrict any use of the information to criminally investigate or prosecute any alcohol or drug abuse patient.[facility] the event this information is protected by the Federal Confidentiality of Alcohol and Drug Abuse Patient Records regulations: The Federal rules restrict any use of the information to criminally investigate or prosecute any alcohol or drug abuse patient.[facility] the event this information is protected by the Federal Confidentiality of Alcohol and Drug Abuse Patient Records regulations: The Federal rules restrict any use of the information to criminally investigate or prosecute any alcohol or drug abuse patient.[facility] the event this information is protected by the Federal Confidentiality of Alcohol and Drug Abuse Patient Records regulations: The Federal rules restrict any use of the information to criminally investigate or prosecute any alcohol or drug abuse patient.[facility] the event this information is protected by the Federal Confidentiality of Alcohol and Drug Abuse Patient Records regulations: The Federal rules restrict any use of the information to criminally investigate or prosecute any alcohol or drug abuse patient.[facility]In the event this information is protected by the Federal Confidentiality of Alcohol and Drug Abuse Patient Records regulations: The Federal rules restrict any use of the information to criminally investigate or prosecute any alcohol or drug abuse patient.[facility]In the event this information is protected by the Federal Confidentiality of Alcohol and Drug Abuse Patient Records regulations: The Federal rules restrict any use of the information to criminally investigate or prosecute any alcohol or drug abuse patient.[facility] GeneralIn the event this information is protected by the Federal Confidentiality of Alcohol and Drug Abuse Patient Records regulations: The Federal rules restrict any use of the information to criminally investigate or prosecute any alcohol or drug abuse patient.[facility]In the event this information is protected by the Federal Confidentiality of Alcohol and Drug Abuse Patient Records regulations: The Federal rules restrict any use of the information to criminally investigate or prosecute any alcohol or drug abuse patient.[facility]In the event this information is protected by the Federal Confidentiality of Alcohol and Drug Abuse Patient Records regulations: The Federal rules restrict any use of the information to criminally investigate or prosecute any alcohol or drug abuse patient.[facility] the event this information is protected by the Federal Confidentiality of Alcohol and Drug Abuse Patient Records regulations: The Federal rules restrict any use of the information to criminally investigate or prosecute any alcohol or drug abuse patient.[facility] the event this information is protected by the Federal Confidentiality of Alcohol and Drug Abuse Patient Records regulations: The Federal rules restrict any use of the information to criminally investigate or prosecute any alcohol or drug abuse patient.[facility] [facility]In the event this information is protected by the Federal Confidentiality of Alcohol and Drug Abuse Patient Records regulations: The Federal rules restrict any use of the information to criminally investigate or prosecute any alcohol or drug abuse patient.[facility] GeneralIn the event this information is protected by the Federal Confidentiality of Alcohol and Drug Abuse Patient Records regulations: The Federal rules restrict any use of the information to criminally investigate or prosecute any alcohol or drug abuse patient.[facility] GeneralIn the event this information is protected by the Federal Confidentiality of Alcohol and Drug Abuse Patient Records regulations: The Federal rules restrict any use of the information to criminally investigate or prosecute any alcohol or drug abuse patient.[facility] GeneralIn the event this information is protected by the Federal Confidentiality of Alcohol and Drug Abuse Patient Records regulations: The Federal rules restrict any use of the information to criminally investigate or prosecute any alcohol or drug abuse patient.[facility] GeneralIn the event this information is protected by the Federal Confidentiality of Alcohol and Drug Abuse Patient Records regulations: The Federal rules restrict any use of the information to criminally investigate or prosecute any alcohol or drug abuse patient.[facility] GeneralIn the event this information is protected by the Federal Confidentiality of Alcohol and Drug Abuse Patient Records regulations: The Federal rules restrict any use of the information to criminally investigate or prosecute any alcohol or drug abuse patient.[facility] GeneralIn the event this information is protected by the Federal Confidentiality of Alcohol and Drug Abuse Patient Records regulations: The Federal rules restrict any use of the information to criminally investigate or prosecute any alcohol or drug abuse patient.[facility] GeneralIn the event this information is protected by the Federal Confidentiality of Alcohol and Drug Abuse Patient Records regulations: The Federal rules restrict any use of the information to criminally investigate or prosecute any alcohol or drug abuse patient.[facility] GeneralIn the event this information is protected by the Federal Confidentiality of Alcohol and Drug Abuse Patient Records regulations: The Federal rules restrict any use of the information to criminally investigate or prosecute any alcohol or drug abuse patient.[facility] GeneralIn the event this information is protected by the Federal Confidentiality of Alcohol and Drug Abuse Patient Records regulations: The Federal rules restrict any use of the information to criminally investigate or prosecute any alcohol or drug abuse patient.[facility] GeneralIn the event this information is protected by the Federal Confidentiality of Alcohol and Drug Abuse Patient Records regulations: The Federal rules restrict any use of the information to criminally investigate or prosecute any alcohol or drug abuse patient.[facility] GeneralIn the event this information is protected by the Federal Confidentiality of Alcohol and Drug Abuse Patient Records regulations: The Federal rules restrict any use of the information to criminally investigate or prosecute any alcohol or drug abuse patient.[facility] GeneralIn the event this information is protected by the Federal Confidentiality of Alcohol and Drug Abuse Patient Records regulations: The Federal rules restrict any use of the information to criminally investigate or prosecute any alcohol or drug abuse patient.[facility] GeneralIn the event this information is protected by the Federal Confidentiality of Alcohol and Drug Abuse Patient Records regulations: The Federal rules restrict any use of the information to criminally investigate or prosecute any alcohol or drug abuse patient.[facility] GeneralIn the event this information is protected by the Federal Confidentiality of Alcohol and Drug Abuse Patient Records regulations: The Federal rules restrict any use of the information to criminally investigate or prosecute any alcohol or drug abuse patient.[facility] GeneralIn the event this information is protected by the Federal Confidentiality of Alcohol and Drug Abuse Patient Records regulations: The Federal rules restrict any use of the information to criminally investigate or prosecute any alcohol or drug abuse patient.[facility] GeneralIn the event this information is protected by the Federal Confidentiality of Alcohol and Drug Abuse Patient Records regulations: The Federal rules restrict any use of the information to criminally investigate or prosecute any alcohol or drug abuse patient.[facility] GeneralIn the event this information is protected by the Federal Confidentiality of Alcohol and Drug Abuse Patient Records regulations: The Federal rules restrict any use of the information to criminally investigate or prosecute any alcohol or drug abuse patient.[facility] GeneralIn the event this information is protected by the Federal Confidentiality of Alcohol and Drug Abuse Patient Records regulations: The Federal rules restrict any use of the information to criminally investigate or prosecute any alcohol or drug abuse patient.[facility] GeneralIn the event this information is protected by the Federal Confidentiality of Alcohol and Drug Abuse Patient Records regulations: The Federal rules restrict any use of the information to criminally investigate or prosecute any alcohol or drug abuse patient.[facility] GeneralIn the event this information is protected by the Federal Confidentiality of Alcohol and Drug Abuse Patient Records regulations: The Federal rules restrict any use of the information to criminally investigate or prosecute any alcohol or drug abuse patient.[facility] GeneralIn the event this information is protected by the Federal Confidentiality of Alcohol and Drug Abuse Patient Records regulations: The Federal rules restrict any use of the information to criminally investigate or prosecute any alcohol or drug abuse patient.[facility] GeneralIn the event this information is protected by the Federal Confidentiality of Alcohol and Drug Abuse Patient Records regulations: The Federal rules restrict any use of the information to criminally investigate or prosecute any alcohol or drug abuse patient.[facility] GeneralIn the event this information is protected by the Federal Confidentiality of Alcohol and Drug Abuse Patient Records regulations: The Federal rules restrict any use of the information to criminally investigate or prosecute any alcohol or drug abuse patient.[facility] GeneralIn the event this information is protected by the Federal Confidentiality of Alcohol and Drug Abuse Patient Records regulations: The Federal rules restrict any use of the information to criminally investigate or prosecute any alcohol or drug abuse patient.[facility] GeneralIn the event this information is protected by the Federal Confidentiality of Alcohol and Drug Abuse Patient Records regulations: The Federal rules restrict any use of the information to criminally investigate or prosecute any alcohol or drug abuse patient.[facility] GeneralIn the event this information is protected by the Federal Confidentiality of Alcohol and Drug Abuse Patient Records regulations: The Federal rules restrict any use of the information to criminally investigate or prosecute any alcohol or drug abuse patient.[facility] GeneralIn the event this information is protected by the Federal Confidentiality of Alcohol and Drug Abuse Patient Records regulations: The Federal rules restrict any use of the information to criminally investigate or prosecute any alcohol or drug abuse patient.[facility] GeneralIn the event this information is protected by the Federal Confidentiality of Alcohol and Drug Abuse Patient Records regulations: The Federal rules restrict any use of the information to criminally investigate or prosecute any alcohol or drug abuse patient.[facility] GeneralIn the event this information is protected by the Federal Confidentiality of Alcohol and Drug Abuse Patient Records regulations: The Federal rules restrict any use of the information to criminally investigate or prosecute any alcohol or drug abuse patient.[facility] GeneralIn the event this information is protected by the Federal Confidentiality of Alcohol and Drug Abuse Patient Records regulations: The Federal rules restrict any use of the information to criminally investigate or prosecute any alcohol or drug abuse patient.[facility] GeneralIn the event this information is protected by the Federal Confidentiality of Alcohol and Drug Abuse Patient Records regulations: The Federal rules restrict any use of the information to criminally investigate or prosecute any alcohol or drug abuse patient.[facility]In the event this information is protected by the Federal Confidentiality of Alcohol and Drug Abuse Patient Records regulations: The Federal rules restrict any use of the information to criminally investigate or prosecute any alcohol or drug abuse patient.[facility]In the event this information is protected by the Federal Confidentiality of Alcohol and Drug Abuse Patient Records regulations: The Federal rules restrict any use of the information to criminally investigate or prosecute any alcohol or drug abuse patient.[facility]In the event this information is protected by the Federal Confidentiality of Alcohol and Drug Abuse Patient Records regulations: The Federal rules restrict any use of the information to criminally investigate or prosecute any alcohol or drug abuse patient.[facility]In the event this information is protected by the Federal Confidentiality of Alcohol and Drug Abuse Patient Records regulations: The Federal rules restrict any use of the information to criminally investigate or prosecute any alcohol or drug abuse patient.[facility]In the event this information is protected by the Federal Confidentiality of Alcohol and Drug Abuse Patient Records regulations: The Federal rules restrict any use of the information to criminally investigate or prosecute any alcohol or drug abuse patient.[facility]In the event this information is protected by the Federal Confidentiality of Alcohol and Drug Abuse Patient Records regulations: The Federal rules restrict any use of the information to criminally investigate or prosecute any alcohol or drug abuse patient.[facility] GeneralIn the event this information is protected by the Federal Confidentiality of Alcohol and Drug Abuse Patient Records regulations: The Federal rules restrict any use of the information to criminally investigate or prosecute any alcohol or drug abuse patient.[facility]In the event this information is protected by the Federal Confidentiality of Alcohol and Drug Abuse Patient Records regulations: The Federal rules restrict any use of the information to criminally investigate or prosecute any alcohol or drug abuse patient.[facility]In the event this information is protected by the Federal Confidentiality of Alcohol and Drug Abuse Patient Records regulations: The Federal rules restrict any use of the information to criminally investigate or prosecute any alcohol or drug abuse patient.[facility]In the event this information is protected by the Federal Confidentiality of Alcohol and Drug Abuse Patient Records regulations: The Federal rules restrict any use of the information to criminally investigate or prosecute any alcohol or drug abuse patient.[facility]In the event this information is protected by the Federal Confidentiality of Alcohol and Drug Abuse Patient Records regulations: The Federal rules restrict any use of the information to criminally investigate or prosecute any alcohol or drug abuse patient.[facility]In the event this information is protected by the Federal Confidentiality of Alcohol and Drug Abuse Patient Records regulations: The Federal rules restrict any use of the information to criminally investigate or prosecute any alcohol or drug abuse patient.[facility]In the event this information is protected by the Federal Confidentiality of Alcohol and Drug Abuse Patient Records regulations: The Federal rules restrict any use of the information to criminally investigate or prosecute any alcohol or drug abuse patient.[facility]In the event this information is protected by the Federal Confidentiality of Alcohol and Drug Abuse Patient Records regulations: The Federal rules restrict any use of the information to criminally investigate or prosecute any alcohol or drug abuse patient.[facility]In the event this information is protected by the Federal Confidentiality of Alcohol and Drug Abuse Patient Records regulations: The Federal rules restrict any use of the information to criminally investigate or prosecute any alcohol or drug abuse patient.[facility]In the event this information is protected by the Federal Confidentiality of Alcohol and Drug Abuse Patient Records regulations: The Federal rules restrict any use of the information to criminally investigate or prosecute any alcohol or drug abuse patient.[facility]In the event this information is protected by the Federal Confidentiality of Alcohol and Drug Abuse Patient Records regulations: The Federal rules restrict any use of the information to criminally investigate or prosecute any alcohol or drug abuse patient.[facility]In the event this information is protected by the Federal Confidentiality of Alcohol and Drug Abuse Patient Records regulations: The Federal rules restrict any use of the information to criminally investigate or prosecute any alcohol or drug abuse patient.[facility]In the event this information is protected by the Federal Confidentiality of Alcohol and Drug Abuse Patient Records regulations: The Federal rules restrict any use of the information to criminally investigate or prosecute any alcohol or drug abuse patient.[facility]In the event this information is protected by the Federal Confidentiality of Alcohol and Drug Abuse Patient Records regulations: The Federal rules restrict any use of the information to criminally investigate or prosecute any alcohol or drug abuse patient.[facility]In the event this information is protected by the Federal Confidentiality of Alcohol and Drug Abuse Patient Records regulations: The Federal rules restrict any use of the information to criminally investigate or prosecute any alcohol or drug abuse patient.[facility]In the event this information is protected by the Federal Confidentiality of Alcohol and Drug Abuse Patient Records regulations: The Federal rules restrict any use of the information to criminally investigate or prosecute any alcohol or drug abuse patient.[facility]In the event this information is protected by the Federal Confidentiality of Alcohol and Drug Abuse Patient Records regulations: The Federal rules restrict any use of the information to criminally investigate or prosecute any alcohol or drug abuse patient.[facility]In the event this information is protected by the Federal Confidentiality of Alcohol and Drug Abuse Patient Records regulations: The Federal rules restrict any use of the information to criminally investigate or prosecute any alcohol or drug abuse patient.[facility]In the event this information is protected by the Federal Confidentiality of Alcohol and Drug Abuse Patient Records regulations: The Federal rules restrict any use of the information to criminally investigate or prosecute any alcohol or drug abuse patient.[facility]In the event this information is protected by the Federal Confidentiality of Alcohol and Drug Abuse Patient Records regulations: The Federal rules restrict any use of the information to criminally investigate or prosecute any alcohol or drug abuse patient.[facility]In the event this information is protected by the Federal Confidentiality of Alcohol and Drug Abuse Patient Records regulations: The Federal rules restrict any use of the information to criminally investigate or prosecute any alcohol or drug abuse patient.[facility] Reason for Visit (unrecogniz ed section and content) Reason Comments PT Discharge Physical Therapy Specialty Diagnoses / Procedures Referred By Viraj t Referred To Contact [facility] Diagnoses Chronic midline low back pain without sciatica Procedures CONSULT TO PHYSICAL THERAPY PHYSICAL THERAPY EVALUATION HIGH COMPLEX 45 MINS Rishi Vasquez, DO [address] [place] [address] [facility] [place] [address] [place] [address] Referral ID Status Reason Start Date Expiration Date Visits Requested Visits Authorized [id number] Authorized Auto-Generat ed Referral 11/19/2023 11/18/2024 99 99 Reason Comments Physical Therapy Reason Comments Radiology US Specialty Diagnoses / Procedures Referred By Contac t Referred To Contact [facility] Diagnoses Abnormal thyroid function test Procedures US THYROID/PARATHYROID US SOFT TISSUE HEAD & NECK REAL TIME IMGE DOCM Rishi Vasquez L, DO [address] [place] [address] [place] [id number] Referral ID Status Reason Start Date Expiration Date V isits Requested Visits Authorized [id number] Closed Auto-Generate d Referral 12/15/2022 01/14/2024 1 [...] TIME WITH IMAGE LIMITED Danyelle Tripp PA-C [address] [place] [address] [facility] [address] [place] [address] Referral ID Status Reason Start Date Expiration Date V isits Requested Visits Authorized [id number] Closed Auto-Generate d Referral 05/29/2023 06/27/2024 1 1 Reason Comments Radiology NM Specialty Diagnoses / Procedures Referred By Contac t Referred To Contact [facility] Diagnoses Abnormal thyroid function test Procedures NM THY UPTAKE AND SCAN THYROID UPTAKE W/BLOOD FLOW SNGLE/MULT JAMARI NATALIA Rishi Vasquez L, DO [address] [place] [address] [facility] [address] [place] [id number] Referral ID Status Reason Start Date Expiration Date V isits Requested Visits Authorized [id number] Closed Auto-Generate d Referral 12/15/2022 01/14/2024 1 1 Reason Onset Date Comments Refill Request 10/03/2023 Reason Comments Radiology US Specialty Diagnoses / Procedures Referred By Viraj t Referred To Contact [facility] Diagnoses Multiple thyroid nodules Procedures US THYROID/PARATHYROID US SOFT TISSUE HEAD & NECK REAL TIME IMGE DOCM Rishi Vasquez, DO [address] [place] [address] [place] [id number] Referral ID Status Reason Start Date Expiration Date V isits Requested Visits Authorized [id number] Closed Auto-Generate d Referral 12/05/2023 01/03/2025 1 1 Reason Comments PT Eval Reason Onset Date Comments Refill Request 01/28/2024 Reason Comments Patient Update Reason Comments Results Reason Onset Date Comments Refill Request 03/22/2024 Reason Comments Orders Reason Comments Patient Update Reason Comments Patient Question Fish oil - [place] 3 Reason Comments Patient Question Reason Onset Date Comments Refill Request 12/25/2024 Reason Comments HH Nursing POC Reason Comments [facility] HH PT POC Reason Comments ER F/U [facility] ED -03/20 Multiple falls, gangrene SADIE feet Reason Comments Senior Living Plan of Care Reason Comments diabetic f/up Reason Comments Diabetes Reason Comments Medication Problem Care Teams (unrecognized sec tion and content) [employer] Relationship Specialty Start Date End Date Rishi Vasquez, DO [address] [place] [address] PCP - General Family Practice 03/26/13 [employer] Relationship Specialty Start Date End Date Rishi Vasquez DO [address] [place], [place] [id number] PCP - General Family Practice 03/26/13 [employer] Relationship Specialty Start Date End Date Rishi Vasquez DO [address] [place] [address] PCP - General Family Practice 03/26/13 [employer] Relationship Specialty Start Date End Date Rishi Vasquez, DO [address] [place] [address] PCP - General Family Practice 03/26/13 [employer] Builder Relationship Specialty Start Date End Date Rishi Vasquez, DO [address] [place] [address] PCP - General Family Practice 03/26/13 [employer] Relationship Specialty Start Date End Date Rishi Vasquez, DO [address] [place] [address] PCP - General Family Practice 03/26/13 Wood Car Builder Relationship Specialty Start Date End Date Rishi Vasquez, DO [address] [facility] [place] [address] PCP - General Family Practice 03/26/13 Wood [employer] Builder Relationship Specialty Start Date End Date Rishi Vasquez, DO [address] [place] [address] PCP - General Family Practice 03/26/13 Wood [employer] Builder Relationship Specialty Start Date End Date Rishi Vasquez, DO [address] [place] [address] PCP - General Family Practice 03/26/13 [employer] Relationship Specialty Start Date End Date Rishi Vasquez, DO [address] [place] [address] PCP - General Family Practice 03/26/13 [employer] Builder Relationship Specialty Start Date End Date Rishi Vasquez, DO [address] [place] [address] PCP - General Family Practice 03/26/13 [employer] Relationship Specialty Start Date End Date Rishi Vasquez, DO [address] [place] [address] PCP - General Family Medicine 03/26/13 Wood Car Builder Relationship Specialty Start Date End Date Rishi Vasquez, DO [address] [facility] [place] [address] PCP - General Family Medicine 03/26/13 [employer] Builder Relationship Specialty Start Date End Date Rishi Vasquez, DO [address] [facility] [place] [address] PCP - General Family Medicine 03/26/13 [employer] Builder Relationship Specialty Start Date End Date Rishi Vasquez, DO [address] [facility] [place] [address] PCP - General Family Medicine 03/26/13 Wood Car Builder Relationship Specialty Start Date End Date Rishi Vasquez, DO [address] [facility] [place] [address] PCP - General Family Medicine 03/26/13 [employer] Builder Relationship Specialty Start Date End Date Rishi Vasquez, DO [address] [facility] [place] [address] PCP - General Family Medicine 03/26/13 Team [...] Primary Care Provider, Attend ing Provider Active [employer] Relationship Specialty Start Date End Date Rishi Vasquez DO [address] [facility] [place] [address] PCP - General Family Medicine 03/26/13 [employer] Builder Relationship Specialty Start Date End Date Rishi Vasquez DO [address] [facility] [place] [address] PCP - General Family Medicine 03/26/13 [employer] Builder Relationship Specialty Start Date End Date Rishi Vasquez DO [address] [facility] [place] [place] [address] PCP - General Family Medicine 03/26/13 Team Status: Inactive Member Role Status Dates Dr. Rishi Vasquez DO Primary Care Provider, Referr ing Provider Active Rick Bergeron NP, [employer] Attending Provider Active [employer] Relationship Specialty Start Date End Date Rishi Vasquez DO [address] [facility] [place] [place] [address] PCP - General Family Medicine 03/26/13 [employer] Relationship Specialty Start Date End Date Rishi Vasquez DO [address] [facility] [place] [place] [address] PCP - General Family Medicine 03/26/13 [employer] Builder Relationship Specialty Start Date End Date Rishi Vasquez DO [address] [facility] [place] [address] PCP - General Family Medicine 03/26/13 Wood Car Builder Relationship Specialty Start Date End Date Rishi Vasquez DO [address] [facility] [place] [address] PCP - General Family Medicine 03/26/13 Team [...] Moscoso MD Attending Provider, Referring Provider Active Wood Car [employer] Relationship Specialty Start Date End Date Rishi Vasquez DO [address] [facility] [place] [address] PCP - General Family Medicine 03/26/13 Team Status: Inactive Member Role Status Dates Dr. Rishi Vasquez DO Primary Care Provider, Referr ing Provider Active Dr. Kwaku Moscoso MD Attending Provider Active Wood Car [employer] Relationship Specialty Start Date End Date Rishi Vasquez DO [address] [place] [address] PCP - General Family Medicine 03/26/13 Team Status: Inactive Member Role Status Dates Dr. Rishi Vasquez DO Primary Care Provider Active Dr. Brandon Membreno , DPM Attending Provider, Referring Provider Active Wood Car Builder Relationship Specialty Start Date End Date Rishi Vasquez DO [address] [place] [address] PCP - General Family Medicine 03/26/13 Wood Car Builder Relationship Specialty Start Date End Date Rishi Vasquez DO [address] [facility] [place] [address] PCP - General Family Medicine 03/26/13 Wood Car Builder Relationship Specialty Start Date End Date Rishi Vasquez DO [address] [facility] [place] [address] PCP - General Family Medicine 03/26/13 Wood Car Builder Relationship Specialty Start Date End Date Rishi Vasquez DO [address] [facility] [place] [address] PCP - General Family Medicine 03/26/13 Wood Car Builder Relationship Specialty Start Date End Date Rishi Vasquez DO [address] [facility] [place] [address] PCP - General Family Medicine 03/26/13 Wood Car Builder Relationship Specialty Start Date End Date Rishi Vasquez DO [address] [facility] [place] [place] [address] PCP - General Family Medicine 03/26/13 Wood Car Builder Relationship Specialty Start Date End Date Rishi Vasquez DO [address] [facility] [place] [address] PCP - General Family Medicine 03/26/13 Wood Car Builder Relationship Specialty Start Date End Date Rishi Vasquez DO [address] [facility] [place] [address] PCP - General Family Medicine 03/26/13 Wood Car Builder Relationship Specialty Start Date End Date Rishi Vasquez DO [address] [facility] [place] [place] [address] PCP - General Family Medicine 03/26/13 Team Status: Inactive Member Role Status Dates Dr. Rishi Vaqsuez DO Primary Care Provider, Referr ing Provider Active Dr. Ciaran Jacobo MD Attending Provider Active Wood Car Builder Relationship Specialty Start Date End Date Rishi Vasquez DO [address] [facility] [place] [address] PCP - General Family Medicine 03/26/13 Wood Car Builder Relationship Specialty Start Date End Date Rishi Vasquez DO [address] [facility] [place] [place] [address] PCP - General Family Medicine 03/26/13 Wood Car Builder Relationship Specialty Start Date End Date Rishi Vasquez DO [address] [place] [address] PCP - General Family Medicine 03/26/13 Team Status: Active Member Role Status Dates Dr. Rishi Vasquez DO Primary Care Provider Active Dr. Elyssa Fieror MD Attending Provider Activ e Team Status: Inactive Member Role Status Dates Dr. Rishi Vasquez DO Primary Care Provider Active Dr. Ciaran Jacobo MD Attending Provider, Referring Provider Active Wood Car Builder Relationship Specialty Start Date End Date Rishi Vasquez DO [address] [place] [address] PCP - General Family Medicine 03/26/13 Wood Car Builder Relationship Specialty Start Date End Date Rishi Vasquez DO [address] [place] [address] PCP - General Family Medicine 03/26/13 Wood Car Builder Relationship Specialty Start Date End Date Rishi Vasquez DO [address] [place] [address] PCP - General Family Medicine 03/26/13 Wood Car Builder Relationship Specialty Start Date End Date Rishi Vasquez DO [address] [place] [address] PCP - General Family Medicine 03/26/13 Wood Car Builder Relationship Specialty Start Date End Date Rishi Vasquez DO [address] [place] [address] PCP - General Family Medicine 03/26/13 Wood Car Builder Relationship Specialty Start Date End Date Rishi Vasquez DO [address] [place] [address] PCP - General Family Medicine 03/26/13 Wood Car Builder Relationship Specialty Start Date End Date Rishi Vasquez DO [address] [facility] [place] [address] PCP - General Family Medicine 03/26/13 Wood Car Builder Relationship Specialty Start Date End Date Rishi Vasquez DO [address] [facility] [place] [address] PCP - General Family Medicine 03/26/13 Wood Car Builder Relationship Specialty Start Date End Date Rishi Vasquez DO [address] [facility] [place] [place] [address] PCP - General Family Medicine 03/26/13 Wood Car Builder Relationship Specialty Start Date End Date Rishi Vasquez DO [address] [facility] [place] [place] [address] PCP - General Family Medicine 03/26/13 Wood Car Builder Relationship Specialty Start Date End Date Rishi Vasquez DO [address] [facility] [place] [place] [address] PCP - General Family Medicine 03/26/13 Wood Car Builder Relationship Specialty Start Date End Date Rishi Vasquez DO [address] [facility] [place] [address] PCP - General Family Medicine 03/26/13 Clary Andres APRN.SHIRT MARKER [address] [facility] [place] [address] Hand Paster Family Medicine 10/26/24 Yani Watts APRN.SHIRT MARKER [address] [place] [address] [facility] 10/26/24 Wood Car Builder Relationship Specialty Start Date End Date Rishi Vasquez DO [address] [place] [address] PCP - General Family Medicine 03/26/13 Clary Andres, IRON INSTALLER.SHIRT MARKER [address] [place] [address] [facility] Yani Watts, IRON INSTALLER.SHIRT MARKER [address] [place], [place] [address] [facility] 10/26/24 Team Status: Active Member Role [...] Referring Provider Active Start: March 07, 2025 Wood Car Builder Relationship Specialty Start Date End Date Rishi Vasquez DO [address] [place], [place] [address] PCP - General Family Medicine 03/26/13 [facility], IRON INSTALLER.SHIRT MARKER [address] [place], [place] [address] Hand Paster Family Medicine 10/26/24 Wood Car Builder Relationship Specialty Start Date End Date Rishi Vasquez DO [address] [place] [address] PCP - General Family Medicine 03/26/13 [facility] Yani, IRON INSTALLER.SHIRT MARKER [address] [facility] [place] [address] [facility] Wood Car Builder Relationship Specialty Start Date End Date Rishi Vasquez DO [address] [facility] [place] [place] [address] PCP - General Family Medicine 03/26/13 Yani Watts, IRON INSTALLER.SHIRT MARKER [address] [facility] [place] [address] Hand Paster [facility] 10/26/24 Team Status: Inactive Member Role Status [...] April 15, 2025 End: April 15, 2025 Wood Car Builder Relationship Specialty Start Date End Date Rishi Vasquez DO [address] [place], [place] [address] PCP - General Family Medicine 03/26/13 Yani Watts, IRON INSTALLER.SHIRT MARKER [address] [place], [place] [address] Hand Paster Family Medicine 10/26/24 Wood Car Builder Relationship Specialty Start Date End Date Rishi Vasquez DO [address] [place], [place] [address] PCP - General Family Medicine 03/26/13 VioletaYani, IRON INSTALLER.SHIRT MARKER [address] [facility] [place] [address] Hand Paster [facility] 10/26/24 Team Status: Inactive Member Role [...] Referring Provider Active Start: April 21, 2025 Wood Car Builder Relationship Specialty Start Date End Date Rishi Vasquez DO [address] [facility] [place] [address] PCP - General Family Medicine 03/26/13 VioletaYani, IRON INSTALLER.SHIRT MARKER [address] [place], [place] [address] [facility] 10/26/24 Team Status: Active Member Role [...] April 27, 2025 End: April 27, 2025 Wood Car Builder Relationship Specialty Start Date End Date Rishi Vasquez DO [address] [place], [place] [address] PCP - General Family Medicine 03/26/13 Yani Watts, IRON INSTALLER.SHIRT MARKER [address] [place], [place] [address] [facility] 10/26/24 Team Status: Active Member Role [...] 2025 End: May 07, 2025 Rick Bergeron [employer] Attending Provider Active S tart: May 07, 2025 End: May 07, 2025 Wood Car Builder Relationship Specialty Start Date End Date Rishi Vasquez DO [address] [place] [address] PCP - General Family Medicine 03/26/13 Yani Watts APRN.SHIRT MARKER [address] [place], [place] [address] Hand Paster Family Medicine 10/26/24 Ld Escobedo APRN.SHIRT MARKER [address] [place], [place] [address] Hand P[facility] 05/04/25 Team Status: Inactive Member Role [...] LILLIAM Gilmore Other Provider Active Start: A pri 2024 End: March 20, 2025 Team Status: [...] Provider Active Start: A pri2024 Team Status: Inactive Member Role/Relationship Status Dates [...] 2025 End: May 07, 2025 Rick Bergeron [employer] Attending Provider Active S tart: May 07, 2025 End: May 07, 2025 Team Status: Inactive Member Role/Relationship Status Dates Dr. Rishi Vasquez DO Primary Care Provider Active Start: May 08, 2025 End: May 08, 2025 Dr. Jarert Quiles MD Attending Provider Active Start: May [...] art: May 18, 2025 Dr. Michaela Joshua , DO Attending Provider Active S tart: May [...] May 18, 2025 Dr. Jacinto Tamez DO Attending Provider [...] End: May 21, 2025 Dr. Michaela Joshua , Attending Provider Active S tart: May 18, 2025 End: May 21, 2025 Dr. Kwaku Mendoza MD Other Provider Active Start: May 18, 2025 End: May 21, 2025 Dr. Patel Irene DPM [...] t: May 19, 2025 Dr. Jacinto Tamez , Attending Provider Active S tart: May 19, [...] Star t: May 19, 2025 Dr. Washington Folres MD Other Provider Active Sta rt: May [...] tart: May 19, 2025 Dr. Jerri Castillo , Emergency Provider Active S tart: May 19, 2025 Dr. Maddie Merchant MD Admit Provider Active St art: May 19, 2025 Dr. Maddie Merchant MD Other Provider Active St art: May 19, 2025 Dr. Michaela Joshua , Attending Provider Active S tart: May 19, 2025 Dr. Michaela Joshua , Other Provider Active Start : May 19, [...] Active Start: May 19, 2025 Dr. Jason Arellaon MD Other Provider Active Start : May [...] art: May 20, 2025 Dr. Michaela Joshua DO Attending Provider Active S tart: May 20, 2025 Dr. Michaela Joshua DO Other Provider Active Start : May 20, [...] Active St art: May 21, 2025 Dr. Mdadie Merchant MD Other Provider Active St art: May 21, 2025 Dr. Michaela Joshua DO Attending Provider Active S tart: May 21, [...] section and content) DATE CREATED AUTHOR 05/12/2025 [facility] DATE CREATED AUTHOR AUTHOR'S ORGANIZ ATION 05/20/2025 [facility] FOR RECORDS PERTAINING TO PATIENTS WHO [...] BE BASED ON THE PRIMARY CLINICAL RECORDS. [employer] [facility]. provides no warranty or guarantee of the accuracy or completeness of information in this document.
[2025-05-22 14:18] VITALS: BP 153/98; PULSE 76; RESP 98; TEMP 37; O2SAT 100
[2025-05-22 14:40] VITALS: BMI 26.2
[2025-05-22 14:43] VITALS: O2SAT 95; O2SAT 96
[2025-05-22 14:44] VITALS: BP 156/70; PULSE 74; RESP 18; TEMP 37.2; O2SAT 98
[2025-05-22 19:49] VITALS: BP 137/55; PULSE 73; RESP 16; TEMP 36.9; O2SAT 96
[2025-05-22] MEDS: Aspirin E.C. 81 MG Tablet PO (21:46)
[2025-05-22] MEDS: Heparin Injection (Vial) 5,000 UNIT/ML VIAL 5000 UNIT SC (21:46)
[2025-05-23 02:40] VITALS: BP 141/66; PULSE 65; RESP 16; TEMP 36.6; O2SAT 96
[2025-05-23 05:40] LABS: Hematocrit 27.6 % (37-47); Hemoglobin 9.0 g/dL (12.0-15.0); Mean Corp Hgb Conc 32.6 g/dL (32-36); Mean Corpuscular Volume 90.2 fL (81-99); Mean Platelet Vol. 11.2 fl (6.2-12.0); Platelet Count 213 K/mm3 (150-450); RBC Distribution Width CV 15.9 % (11.6-14.6); RBC Distribution Width SD 52.3 fl (35.1-43.9); Red Blood Count 3.06 M/mm3 (4.2-5.4); White Blood Count 5.2 K/mm3 (4.4-11.0)
[2025-05-23 06:24] LABS: Anion Gap 10 (5-15); BUN 38 mg/dL (4-19); BUN/Creat Ratio 42.0 RATIO (10-20); Calcium,Total 8.9 mg/dL (7.6-11.0); Carbon Dioxide 21.1 mmol/L (21.0-32.0); Chloride 111 mmol/L (98-108); Estimated Creatinine Clearance 56.52 ml/min (50-250); Glucose 89 mg/dL (70-99); Potassium 3.9 mmol/L (3.3-5.1)
[2025-05-23] MEDS: Heparin Injection (Vial) 5,000 UNIT/ML VIAL 5000 UNIT SC ×3 (06:28→22:36)
--- NOTE | 2025-05-23 07:58 | PCM.PN.HOSP ---
Reason for Visit Reason for Visit: Fall Subjective Subjective Pt refusing to let anyone but Dr. Irene. Consult placed and he will be in tomorrow to address. C/O neck pain. Will try heating pad and mm relaxant. Pt now amenable to SNF placement. Objective Data Objective Data Vital Signs: Vital Signs Temp Pulse Resp BP Pulse Ox O2 Del Method 97.9 F 65 16 141/66 H 96 Room Air 05/23/25 02:40 05/23/25 02:40 05/23/25 02:40 05/23/25 02:40 05/23/25 02:40 05/23/25 07:12 Oxygen Delivery Method Room Air Weight: 73.618 kg Body Mass Index (BMI) 26.2 Intake & Output: Intake and Output for Last 24 Hours 05/21/25 05/22/25 05/23/25 23:59 23:59 23:59 Intake Total 1500 / 1500 Output Total 700 / 700 400 / 400 Balance 800 / 800 -400 / -400 Lab / Micro Data 05/23/25 04:48 05/23/25 04:48 Labs: Laboratory Results - last 24 hr 05/22/25 12:15: WBC 7.2, RBC 3.28 L, Hgb 9.5 L, Hct 29.6 L, MCV 90.2, MCH 29.0, MCHC 32.1, RDW Std Deviation 52.4 H, RDW Coeff of Jorgito 15.8 H, Plt Count 214, MPV 10.9, Immature Gran % (Auto) 1.300 H, Neut % (Auto) 78.4 H, Lymph % (Auto) 9.1 L, [place] % (Auto) 9.0, Eos % (Auto) 1.5, Baso % (Auto) 0.7, Absolute Neuts (auto) 5.6, Absolute Lymphs (auto) 0.65 L, Nucleated RBC % 0, Sodium 140, Potassium 4.3, Chloride 109 H, Carbon Dioxide 19.0 L, Anion Gap 13, BUN 56 H, Creatinine 1.22 H, Estim Creat Clear Calc 42.00 L, Est GFR (MDRD) Non-Af 47 L, BUN/Creatinine Ratio 45.7 H, Glucose 216 H, Calcium 9.2, Total Bilirubin 0.33, AST 58 H, ALT 41 H, Alkaline Phosphatase 55, Total Protein 6.2, Albumin 2.9 L, Globulin 3.3, Albumin/Globulin Ratio 0.9 05/22/25 16:09: POC Glucose 269 H 05/22/25 21:52: POC Glucose 160 H 05/23/25 04:48: WBC 5.2, RBC 3.06 L, Hgb 9.0 L, Hct 27.6 L, MCV 90.2, MCH 29.4, MCHC 32.6, RDW Std Deviation 52.3 H, RDW Coeff of Jorgito 15.9 H, Plt Count 213, MPV 11.2, Sodium 142, Potassium 3.9, Chloride 111 H, Carbon Dioxide 21.1, Anion Gap 10, BUN 38 H, Creatinine 0.91, Estim Creat Clear Calc 56.52, Est GFR (MDRD) Non-Af 66, BUN/Creatinine Ratio 42.0 H, Glucose 89, Calcium 8.9 05/23/25 06:30: POC Glucose 82 Physical Exam Const alert, oriented x3, no apparent distress and average body habitus Constitutional Narrative: Elderly, white female, sitting up in a chair at the bedside, appears comfortable, non-toxic General Appearance: cooperative and comfortable HEENT normocephalic, head/scalp atraumatic and moist oral mucous membranes Resp normal respiratory effort, normal air movement, no retractions, no use of accessory muscles and clear to auscultation bilaterally Resp Narrative: diminished diffusely but clear Cardio regular rate, regular rhythm, S1 normal heart sound, S2 normal heart sound, no murmurs, no rub, no gallops, no clicks and no JVD GI normal to inspection, nondistended, normoactive bowel sounds, soft to palpation and non-tender Extremity Extremity Narrative: Bilateral lower extremities with Marino wrap in place up to the knees, offloading brace in place on left foot up to mid lower left leg as well, decreased cap refill Neuro moves all extremities and no focal motor deficits Speech: speech normal Psych mental status grossly normal and affect normal Psych Narrative: eye contact is good and interacts normal Assessment & Plan Assessment/Plan (1) Generalized weakness: PLAN: Plan Fall/generalized weakness - Patient with recent hospitalization and SNF was recommended - Patient was adamant she would only go to the transitional care unit here at the hospital and no beds were available so she declined admission for rehab and went home - Patient fell shortly after being discharged and came back to the emergency department as she discovered she was unable to care for herself after discharge - Is now amenable to placement - Patient has commercial Medicare and will need pre-CERT prior to discharge will discuss with case management today - PT/OT following MRSA bacteremia - Clinically was clearing infection per discussion with infectious disease prior to discharge they desired linezolid for 10 more days - Follow-up cultures for clearance are pending if negative no further workup and continue linezolid - If follow-up cultures are positive will check echocardiogram and suggested to vancomycin - If follow-up cultures are positive we will also reconsult infectious disease Peripheral vascular disease with bilateral lower extremity ulceration and wounds - MRSA infection - Linezolid-->pt bringing in home script--> did take last night and this am - Plan is for revascularization this coming Sunday as long as she is medically stable - Continue aspirin and Plavix - Will consult vascular surgery on Sunday evening for evaluation on Sunday given the fact that surgery is planned for on Sunday Diabetic foot ulcer bilateral lower extremities - Wounds overall appear stable - will continue antibiotic regimen - Has undergone debridement with podiatry - Revascularization planned for 05/26/2025 - Dr. Irene consult CKD stage IIIa - Serum creatinine today is actually down from her baseline at 0.91 - Monitor clinically and avoid nephrotoxins as able CAD/essential hypertension/hyperlipidemia - Continue home metoprolol - Continue home atorvastatin - Continue home aspirin - Continue Plavix DM-2 - A1c is 7.6 on 05/18/2025 - Blood glucose of 216 on admission - Takes only glimepiride at baseline - Continue SSI - Continue Accu-Cheks - Avoid any further intervention at this time as fasting sugar this morning is 89 Chronic normocytic anemia secondary to iron deficiency - Hemoglobin appears to be stable - continue home iron supplementation and vitamin C supplementation which will assist with iron absorption COPD with history of tobacco use - Continue aerosols as ordered Anxiety/depression - Patient currently is not on any medication for this DVT prophylaxis - Continue heparin 3 times daily CODE STATUS -Full code Disposition: - Patient is medically stable for discharge as of the day of admission 05/22/2025. This is a readmission after discharge per patient's insistence on not being admitted to detention facility other than transitional care unit which unfortunately had no bed availability. Case management is involved and will work on finding facility. Patient does need pre-CERT and may not be able to be discharged before her surgery next Sunday Charges/Coding Visit Charges Inpatient E&M: 68468 Subs Hosp L2
[2025-05-23 08:36] VITALS: BP 127/60; PULSE 65; RESP 16; TEMP 36.7; O2SAT 99
[2025-05-23] MEDS: Lactobacillis Acidophilus 1 CAP PO (08:51)
[2025-05-23 08:52] VITALS: PULSE 65
[2025-05-23] MEDS: Metoprolol(XL)Succ 25 MG Tablet 12.5 MG PO (08:52)
[2025-05-23 14:27] VITALS: BP 110/60; PULSE 67; RESP 16; TEMP 36.9; O2SAT 97
--- NOTE | 2025-05-23 14:58 | CASEMGMT ---
GORGE CM in to discuss FLORES form with patient. RN CM explained FLORES form, patient voiced understanding. Pt signed form and filed in chart. Pt provided with a copy of signed FLORES form. Patient had no further questions or concerns at this time.
--- NOTE | 2025-05-23 15:26 | CASEMGMT ---
Social Work- SWmet with pt to discuss discharge planning. Pt recently d/c home (05/21), readmitting 05/22 due to sliding off her chair while putting pants on and being unable to get up. Pt reports that her neighbor is an EMT and assisted her back to the chair. Pt reports that her brother insisted that she return to hospital. Pt reports that she would like to be placed at TCU when discharge ready. SW completed referral. Pt has surgery Sunday. SW remains available to follow. BREANNA Salvador
[2025-05-23 20:00] VITALS: PULSE 58; O2SAT 96
[2025-05-23 20:30] VITALS: BP 123/54; PULSE 58; RESP 16; TEMP 37; O2SAT 96
[2025-05-23] MEDS: Aspirin E.C. 81 MG Tablet PO (22:37)
[2025-05-24 04:30] VITALS: BP 139/93; PULSE 53; RESP 16; TEMP 36.5; O2SAT 99
[2025-05-24] MEDS: Heparin Injection (Vial) 5,000 UNIT/ML VIAL 5000 UNIT SC ×3 (05:54→20:17)
--- NOTE | 2025-05-24 07:11 | PN.HOSP_ITS ---
Reason for Visit Reason for Visit: Weakness/Falls Subjective Subjective No issues overnight. Slept well. Having BM's. Denies pain. Objective Data Objective Data Vital Signs: Vital Signs Temp Pulse Resp BP Pulse Ox O2 Del Method 97.7 F L 53 L 16 139/93 H 99 Room Air 05/24/25 04:30 05/24/25 04:30 05/24/25 04:30 05/24/25 04:30 05/24/25 04:30 05/24/25 04:30 Oxygen Delivery Method Room Air Weight: 73.618 kg Body Mass Index (BMI) 26.2 Intake & Output: Intake and Output for Last 24 Hours 05/22/25 05/23/25 05/24/25 23:59 23:59 23:59 Intake Total 1500 / 1500 100 / 100 Output Total 700 / 700 400 / 400 Balance 800 / 800 -400 / -400 100 / 100 Lab / Micro Data 05/23/25 04:48 05/23/25 04:48 Labs: Laboratory Results - last 24 hr 05/23/25 11:26: POC Glucose 248 H 05/23/25 16:25: POC Glucose 176 H 05/23/25 22:35: POC Glucose 177 H 05/24/25 06:40: POC Glucose 130 H Physical Exam Const alert, oriented x3, no apparent distress and average body habitus Constitutional Narrative: Elderly, white female, sitting up in a chair at the bedside, appears comfortable, non-toxic General Appearance: cooperative and comfortable HEENT normocephalic, head/scalp atraumatic and moist oral mucous membranes Resp normal respiratory effort, normal air movement, no retractions, no use of accessory muscles and clear to auscultation bilaterally Resp Narrative: diminished diffusely but clear Cardio regular rate, regular rhythm, S1 normal heart sound, S2 normal heart sound, no murmurs, no rub, no gallops and no clicks GI normal to inspection, nondistended, normoactive bowel sounds, soft to palpation and non-tender Extremity Extremity Narrative: Bilateral lower extremities with Marino wrap in place up to the knees, offloading brace in place on left foot up to mid lower left leg as well, decreased cap refill Neuro moves all extremities and no focal motor deficits Speech: speech normal Psych affect normal Psych Narrative: eye contact is good and interacts normal Assessment & Plan Assessment/Plan (1) Generalized weakness: PLAN: Plan Fall/generalized weakness - Patient with recent hospitalization and SNF was recommended - Patient was adamant she would only go to the transitional care unit here at the hospital and no beds were available so she declined admission for rehab and went home - Patient fell shortly after being discharged and came back to the emergency department as she discovered she was unable to care for herself after discharge - Is now amenable to placement - Patient has commercial Medicare and will need pre-CERT prior to discharge will discuss with case management today - PT/OT following MRSA bacteremia - Clinically was clearing infection per discussion with infectious disease prior to discharge they desired linezolid for 10 more days - Blood cx neg at 48 hrs Peripheral vascular disease with bilateral lower extremity ulceration and wounds - MRSA infection - Linezolid as above - Plan is for revascularization this coming Sunday as long as she is medically stable-->Dr. Clement consulted and discussed case with him-->to see tomorrow - Continue aspirin and Plavix Diabetic foot ulcer bilateral lower extremities - Wounds overall appear stable - will continue antibiotic regimen - Has undergone debridement with podiatry - Revascularization planned for 05/26/2025 - Dr. Irene consult--> to see today CKD stage IIIa - Serum creatinine today is actually down from her baseline at 0.91 - Monitor clinically and avoid nephrotoxins as able CAD/essential hypertension/hyperlipidemia - Continue home metoprolol - Continue home atorvastatin - Continue home aspirin - Continue Plavix DM-2 - A1c is 7.6 on 05/18/2025 - Blood glucose of 216 on admission - Takes only glimepiride at baseline - Continue SSI - Continue Accu-Cheks - Avoid any further intervention at this time as fasting sugar this morning is 89 Chronic normocytic anemia secondary to iron deficiency - Hemoglobin appears to be stable - continue home iron supplementation and vitamin C supplementation which will assist with iron absorption COPD with history of tobacco use - Continue aerosols as ordered Anxiety/depression - Patient currently is not on any medication for this DVT prophylaxis - Continue heparin 3 times daily CODE STATUS -Full code Disposition: - Patient is medically stable for discharge as of the day of admission 05/22/2025. This is a readmission after discharge per patient's insistence on not being admitted to care home facility other than transitional care unit which unfortunately had no bed availability. Case management is involved and will work on finding facility. Patient does need pre-CERT and may not be able to be discharged before her surgery next Sunday Charges/Coding Visit Charges Inpatient E&M: 66354 Subs Hosp L2
[2025-05-24 09:50] VITALS: O2SAT 96
--- NOTE | 2025-05-24 10:03 | PCM.CONS.GEN ---
Assessment & Plan Assessment/Plan (1) Non-pressure chronic ulcer of other part of right foot with fat layer exposed: PLAN: Patient was examined and evaluated. All findings were discussed with the patient. All questions were answered to the patient satisfaction. After physical examination of the patient's bilateral intake of skin grafts are well adhered and secured with jacob. The grafts were dressed with Adaptic, dry sterile dressing and single-layer Man compression bandage was donned to the bilateral lower extremity. Please change every 3 days. Patient will be having intervention with vascular surgery in the next upcoming days. It is okay to remove the dressings as needed but please reapply as above. No plan for surgical intervention from podiatry standpoint during this hospital stay. Blood cultures (06/17/2025): No growth Bone culture, ankle (05/20/2025): Staph aureus Wound culture: Foot (05/18/2025): MRSA, coag negative staph WBC: 5.2 Glucose: 89 HbA1c: 7.6 Medicine: On board, medical management, PO 600 mg linezolid PT/OT: On board Recommend infectious disease consultation due to bone culture growing Staph aureus during the patient's last hospital stay/OR visit. Podiatry will continue to follow patient while in house but will follow from a distance. Please reach out to Dr. Irene or Dr. Berry with any question or concerns. Dr. Berry will be taking over call 05/25/2025. I will be able to be reached via cell phone and [place] the country [place] 1 week. Thank you for the consultation and allowing me to be involved in the patient care. (2) 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 foot with fat layer exposed: (3) Other specified peripheral vascular diseases: (4) Type 2 diabetes mellitus with foot ulcer: HPI Consult Data Date of Consult: 05/24/25 HPI Narrative Reason for Consultation: Bilateral full-thickness wound with graft application HPI Narrative: KIMBERLY NEWMAN, is a 75 F who presented on 06/12 with generalized weakness and sliding out of her chair. Patient states that she woke up this morning use her walker to walk on the chair went to sit down and slid out of the chair was on the ground. States that she sat there for an extended period of time and states that she could not get up therefore EMS was called and she was brought here for the evaluation management. Patient is well-known to my service and was seen for surgery on 05/20/2025 for surgical skin graft site prep with application of skin graft substitute donned. Patient has left the postoperative dressing clean dry and intact. She denies any strikethrough. She does admit to some weakness. She denies any constitutional symptoms. Other B complaints at this time. 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 heart without angina pectoris Hyperlipidemia Peripheral vascular occlusive disease Hammer toe of second toe of left foot Hallux valgus (acquired), right foot Healed ulcer of left foot on examination Chronic ulcer of left foot with fat layer exposed Delayed wound healing Malnutrition Osteomyelitis of foot 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 Methicillin resistant Staphylococcus aureus infection Chronic osteomyelitis of left foot Non-healing ulcer of right foot DM2 (diabetes mellitus, type 2) Home Medications ?Medication ?Instructions ?Recorded ?Last Taken ?Type aspirin 81 mg tablet,delayed 81 mg PO QHS blood clots 01/13/14 04/14/25 History release multivitamin with folic acid 400 1 tab PO DAILY Supplement 01/13/14 11/14/16 History mcg tablet omega-3 fatty acids-fish oil 340 1 ea PO DAILY supplement 06/29/16 08/27/16 History mg-1,000 mg capsule ferrous sulfate 325 mg (65 mg 325 mg PO DAILY SUPPLEMENT 08/15/18 03/08/25 History iron) tablet ascorbic acid (vitamin C) 500 mg 1,000 mg PO LUNCH Supplement 11/25/20 03/11/25 11:50 History tablet calcium carbonate (Calcium 600) 600 mg PO DAILY supplement 12/29/21 Unknown History clopidogrel 75 mg tablet 75 mg PO DAILY Blood clots #90 tabs 10/23/24 04/15/25 Rx Lactobacillus acidophilus 600 mg PO QDAY gi 03/07/25 03/11/25 09:00 History (Acidophilus capsule) pregabalin 100 mg capsule 100 mg PO TID nerve pain 03/07/25 03/11/25 11:50 History simvastatin 20 mg tablet 20 mg PO QHS cholesterol #30 tabs 03/23/25 Unknown Rx nystatin 100,000 unit/gram topical 1 applic topical BID PRN rash 05/07/25 Unknown History powder ([facility]) acetaminophen 650 mg 650 mg PO Q12H PRN pain 05/08/25 Unknown History tablet,extended release amlodipine 5 mg tablet 5 mg PO DAILY HTN #90 tabs 05/12/25 Unknown Rx metoprolol succinate 25 mg 12.5 mg (1/2 x 25 mg) PO DAILY 05/12/25 Unknown Rx tablet,extended release 24 hr HEART RATE #45 tabs glimepiride 2 mg tablet 2 mg PO BID 05/18/25 Unknown History collagenase clostridium histo. 250 1 applic topical DAILY #15 grams 05/21/25 Unknown Rx unit/gram topical ointment (Santyl) linezolid 600 mg tablet 600 mg PO BID #21 tabs 05/21/25 Unknown Rx Allergy/AdvReac Type Severity Reaction Status Date / Time Sulfa (Sulfonamide Allergy Unknown Verified 05/22/25 11:05 Antibiotics) Family History Father CAD (coronary artery disease) Heart disease Hypertension CVA (cerebral vascular accident) Mother COPD (chronic obstructive pulmonary disease) Hypertension Heart disease Heart failure Surgical History History of cardiac catheterization History of colonoscopy History of foot surgery History of repair of left rotator cuff History of total left knee replacement (~2014) History of angioplasty of peripheral vessel (~2012) amputation left toe History of left heart catheterization (~01/20/14) Social History household members: none Smoking Status: Former smoker how long ago did patient quit smokin years ago alcohol intake: never substance use type: does not use caffeine: No Physical Exam Narrative Vascular: DP and PT pulse are faintly palpable to the bilateral extremity. CFT is brisk. Skin temperature gradient is warm to warm from proximal ankle to distal digits bilateral. No focal increase is appreciated. Neurological: Light touch is intact. Protective station is absent. Dermatological: Multiple of full-thickness wounds to the bilateral lower extremity with Integra bilayer skin graft secured with jacob. All wounds are stable with no sign of infection. No malodor. No drainage. No sign of infection. Musculoskeletal: Muscle strength is 5 out of 5 in all quadrants to the bilateral lower extremity. No pain on palpation to full-thickness wounds and graft to the bilateral lower extremity. No pain with calf pressure. Lab / Micro Data 05/23/25 04:48 05/23/25 04:48 Labs: Laboratory Results - last 24 hr 05/23/25 11:26: POC Glucose 248 H 05/23/25 16:25: POC Glucose 176 H 05/23/25 22:35: POC Glucose 177 H 05/24/25 06:40: POC Glucose 130 H
[2025-05-24 11:03] VITALS: BP 127/64; PULSE 65; RESP 16; TEMP 36.7; O2SAT 95
[2025-05-24 11:13] VITALS: BP 127/64; PULSE 65
[2025-05-24] MEDS: Metoprolol(XL)Succ 25 MG Tablet 12.5 MG PO (11:13)
[2025-05-24] MEDS: Lactobacillis Acidophilus 1 CAP PO (11:14)
[2025-05-24 16:37] VITALS: BP 120/64; PULSE 61; RESP 16; TEMP 36.6; O2SAT 97
[2025-05-24] MEDS: Aspirin E.C. 81 MG Tablet PO (20:17)
[2025-05-24 22:00] VITALS: BP 127/65; PULSE 61; RESP 16; TEMP 36.7; O2SAT 99
[2025-05-25 04:00] VITALS: BP 144/58; PULSE 55; RESP 16; TEMP 36.6; O2SAT 97
[2025-05-25 05:02] LABS: Hematocrit 26.6 % (37-47); Hemoglobin 8.8 g/dL (12.0-15.0); Mean Corp Hgb Conc 33.1 g/dL (32-36); Mean Corpuscular Volume 89.3 fL (81-99); Mean Platelet Vol. 10.6 fl (6.2-12.0); Platelet Count 234 K/mm3 (150-450); RBC Distribution Width CV 15.5 % (11.6-14.6); RBC Distribution Width SD 50.9 fl (35.1-43.9); Red Blood Count 2.98 M/mm3 (4.2-5.4); White Blood Count 5.4 K/mm3 (4.4-11.0)
[2025-05-25] MEDS: Heparin Injection (Vial) 5,000 UNIT/ML VIAL 5000 UNIT SC ×2 (06:50→21:33)
--- NOTE | 2025-05-25 07:15 | PN.HOSP_ITS ---
Reason for Visit Reason for Visit: Diagnoses Type 2 diabetes mellitus with foot ulcer (05/22/25) Other specified peripheral vascular diseases (05/22/25) Non-pressure chronic ulcer of other part of unspecified foot with unspecified severity (05/22/25) Non-pressure chronic ulcer of other part of right foot with fat layer exposed (05/22/25) 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 foot with fat layer exposed (05/22/25) Weakness (05/22/25) Subjective Subjective Patient with no acute events overnight per self and per nursing report. She only notes left neck discomfort and strain with intermittent increased discomfort especially with activity and movement attempts since her admission. She denies any extremity discomforts or pain. She understands plan of care which includes revascularization 05/26/2025 per vascular surgery. Discussed recent podiatry evaluation with right foot wound evaluation at the bedside with plan continue dressing changes every 3 days to which she is amenable. Patient denies fevers, chills, nausea, emesis, abdominal pain, chest pain or dyspnea. Objective Data Objective Data Vital Signs: Vital Signs Temp Pulse Resp BP Pulse Ox O2 Del Method 97.8 F 55 L 16 144/58 H 97 Room Air 05/25/25 04:00 05/25/25 04:00 05/25/25 04:00 05/25/25 04:00 05/25/25 04:00 05/25/25 04:00 Oxygen Delivery Method Room Air Weight: 162 lb 4.8 oz Body Mass Index (BMI) 26.2 Intake & Output: Intake and Output for Last 24 Hours 05/23/25 05/24/25 05/25/25 23:59 23:59 23:59 Intake Total 950 / 950 Output Total 400 / 400 Balance -400 / -400 950 / 950 Lab / Micro Data 05/25/25 04:31 05/25/25 04:31 Labs: Laboratory Results - last 24 hr 05/24/25 11:46: POC Glucose 180 H 05/24/25 16:34: POC Glucose 213 H 05/24/25 22:01: POC Glucose 133 H 05/25/25 04:31: WBC 5.4, RBC 2.98 L, Hgb 8.8 L, Hct 26.6 L, MCV 89.3, MCH 29.5, MCHC 33.1, RDW Std Deviation 50.9 H, RDW Coeff of Jorgito 15.5 H, Plt Count 234, MPV 10.6 05/25/25 06:47: POC Glucose 134 H Physical Exam Narrative Physical Examination: General: Awake, alert, oriented x 3 and cooperative[facility], notes only complaint of left neck discomfort with movement. Skin: Normal color, normal turgor, no icterus, no cyanosis except for occasional stage ecchymoses, abrasion, bilateral lower extremity diabetic foot wounds with currently dressings in place per podiatry with no drainage. HEENT: AT/NC, EOMI, PERRLA, MMM. Lungs: Mildly diminished, greater bases, proper effort, no rales, ronchi or wheezing. Heart: Regular rate with regular rhythm; no gallop, rub audible. Abdomen: Soft, NTTP, ND, normal BS. Extremities: No cyanosis, no clubbing, see skin, bilateral lower extremity foot wound dressings in place with no drainage. Neurological: Patient awake, alert, oriented as noted, cognitive function intact; pupils equally reactive to light and accommodation, cranial nerves grossly normal, moving all 4 extremities, mildly tremulous, less than previous admission which is chronic, no obvious focal deficits, strength severely globally decreased. Psychiatric: Affect appears fatigued otherwise normal, no acute evidence of depressive or anxiety feelings. Assessment & Plan Assessment/Plan (1) Fall: (2) Generalized weakness: PLAN: Plan The patient is a 75 y/o F w/ PMHx: CAD, PAD s/p peripheral angioplasty, Diabetes mellitus type II with Chronic neuropathy, Anxiety and Depression, HTN, HLD, Former tobacco use, Chronic normocytic anemia/Fe deficiency anemia, CKD stage III unclear subtype per GFR trending, chronic bilateral lower extremity diabetic ulcerations/wounds following with Dr. Irene status post recent 05/20/2025 surgical intervention with discharge 05/21/2025 unfortunately with refusal for skilled placement as there was not a TCU bed available at that time who then returned 05/22/2025 with generalized weakness and mechanical fall while attempting to transfer unable to get herself up prompting return to the hospital for evaluation and care. #1. Adult FTT, Debility with patient deferral of recommended SNF placement following recent discharge w/ return to home with mechanical fall complicated by Recent bilateral lower extremity diabetic wounds with significantly MRSA infected left lower diabetic wound with associated MRSA bacteremia: Status post 05/20/2025 incision of the bone cortex of the left ankle, surgical skin grafting to the left leg, surgical skin grafting to the left foot, application of graft substitute, wound culture from OR with MRSA, discharged on linezolid, will continue antibiotic regimen, continue podiatry involvement as well as continued infectious disease involvement and vascular surgery as noted, most recent podiatry evaluation 05/24/2025 with noted plan for continued Adaptic placement to the graft area with overlapping dry sterile dressing and single layer of Man compression bandage with plan for continued change every 3 days. Podiatry noted dressings may be removed if needed temporarily however replaced immediately following as noted. PT/OT/case management consulted for discharge planning. Patient is only willing to transition to [facility] if it is TCU and bed has been requested it is unclear if it will be made available. #2. Peripheral vascular disease, PAD with significant bilateral lower extremity wounds and ulceration: Patient following with Dr. Clement, most recent imaging noted during previous presentation also with CTA demonstrating significant calcific femoral disease bilaterally with angiogram evaluation of the tibial vessels, planning 05/26/2025 bypass bilaterally with vein mapping unfortunately demonstrating insufficient vein use for bypass grafting with recommendation in conjunction with podiatry/vascular surgery noted to be bilateral femoral endarterectomies with bilateral femoral to tibial bypass with cadaver graft and bilateral sartorius flaps with planned staged procedures. Will continue aspirin, Plavix, statin, hypertensive regimen with adjustments as needed pending blood pressure trending as noted. #3. Chronic Kidney Disease Stage III, unclear subtype or GFR trending: Admission BUN/Cr 56/1.22, GFR 47, baseline renal function primarily 1.3-1.5 but did have recent presentation with acute kidney injury with creatinine up to 1.96, resolved currently and had felt at that time to be secondary to ATN, repeat BMP in AM. 05/25/2025 BUN/creatinine 38/1.11, GFR 52. #4. Diabetes mellitus type II complicated by #1 with chronic diabetic wounds and chronic diabetic neuropathy: Hold oral home regimen, maintain on ADA diet, awaiting vascular surgery wanted percent confirmation of intervention 05/26/2025, will allow n.p.o. status per their timeline, will maintain on accu checks w/ ISS, continue home pregabalin regimen. #5. Hypertension: Continue home regimen including metoprolol, amlodipine with hold parameters as needed, PRN hydralazine. #6. Hyperlipidemia: Continue home statin therapy. #7. Chronic normocytic anemia/iron deficiency anemia: Admission hemoglobin 9.5, MCV 90.2, baseline hemoglobin has vacillated but appears primarily 9 range, continue to closely trend CBC, if dropping further will investigate. Will continue iron supplementation. 05/25/2025 hemoglobin 8.8, MCV 89.3, stable. #8. Anxiety and depression: Noted history in the chart, not on regimen per current list, continue to monitor and follow-up outpatient as previously arranged. #9. Former tobacco use: Encourage continued tobacco cessation. #10. DVT prophylaxis: Heparin, will await input per vascular surgery to assure planned intervention with hold preoperatively. #11. CODE status: Patient VICTOR MANUEL she thinks is her sister. Full Code status. Charges/Coding Visit Charges Inpatient E&M: 03284 Subs Hosp L3
[2025-05-25 07:55] LABS: Anion Gap 12 (5-15); BUN 38 mg/dL (4-19); BUN/Creat Ratio 34.0 RATIO (10-20); Calcium,Total 9.0 mg/dL (7.6-11.0); Carbon Dioxide 20.2 mmol/L (21.0-32.0); Chloride 110 mmol/L (98-108); Estimated Creatinine Clearance 46.34 ml/min (50-250); Glucose 137 mg/dL (70-99); Potassium 4.2 mmol/L (3.3-5.1)
[2025-05-25 09:31] VITALS: BP 119/49; PULSE 66; RESP 18; TEMP 36.8; O2SAT 100
[2025-05-25] MEDS: Lactobacillis Acidophilus 1 CAP PO (09:37)
[2025-05-25 09:38] VITALS: PULSE 66
[2025-05-25] MEDS: Metoprolol(XL)Succ 25 MG Tablet 12.5 MG PO (09:38)
--- NOTE | 2025-05-25 11:07 | CASEMGMT ---
Message to admissions in TCU, pt is not able to be reviewed until after surgery and therapy has angel PENNINGTON CM to follow.
[2025-05-25 14:24] VITALS: BP 103/40; PULSE 66; RESP 18; TEMP 36.3; O2SAT 99
--- NOTE | 2025-05-25 17:36 | CON.PCM.SX_ITS ---
Assessment & Plan Assessment/Plan (1) 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: QUALIFIERS: Peripheral atherosclerosis artery type: [place] artery Lower extremity ulceration location: midfoot Qualified Code(s): I70.234 - Atherosclerosis of [place] arteries of right leg with ulceration of heel and midfoot; I70.244 - Atherosclerosis of [place] arteries of left leg with ulceration of heel and midfoot PLAN: -NPO at midnight -OR in AM for femoral endart, fem-tibial bypass HPI Consult Data Date of Consult: 05/25/25 HPI Narrative HPI Narrative: KIMBERLY NEWMAN, is a 75 F who presents after recent discharge to home from admission for weakness/UTI/bacteremia. She again was unable to get up from floor after sliding to ground. Her foot wounds have remained stable. [facility] Medical History Other specified peripheral vascular diseases History of MRSA infection Pressure ulcer Ambulates with cane Shortness of breath on exertion History of edema History of echocardiogram Fall Atherosclerosis of [place] artery of both lower extremities with gangrene Chronic painful diabetic polyneuropathy MRSA (methicillin resistant staph aureus) culture positive Depression Diabetes Back pain Vertigo History of pain when walking Hypertension Arthritis Wears dentures Post-menopausal Low iron High cholesterol Easy bruising Neuropathy Dietary restriction Former smoker Cardiology follow-up encounter History of torn meniscus of left knee Carotid artery stenosis Essential hypertension Skin lesion Hammer toe of left foot Osteomyelitis Chronic kidney disease, stage 3 Atherosclerosis of coronary artery of [place] heart without angina pectoris Hyperlipidemia Peripheral vascular occlusive disease Hammer toe of second toe of left foot Hallux valgus (acquired), right foot Healed ulcer of left foot on examination Chronic ulcer of left foot with fat layer exposed Delayed wound healing Malnutrition Osteomyelitis of foot 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 Methicillin resistant Staphylococcus aureus infection Chronic osteomyelitis of left foot Non-healing ulcer of right foot DM2 (diabetes mellitus, type 2) Home Medications ?Medication ?Instructions ?Recorded ?Last Taken ?Type aspirin 81 mg tablet,delayed 81 mg PO QHS blood clots 01/13/14 04/14/25 History release multivitamin with folic acid 400 1 tab PO DAILY Supple ment 01/13/14 11/14/16 History mcg tablet omega-3 fatty acids-fish oil 340 1 ea PO DAILY supplem ent 06/29/16 08/27/16 History mg-1,000 mg capsule ferrous sulfate 325 mg (65 mg 325 mg PO DAILY SUPPLEME NT 08/15/18 03/08/25 History iron) tablet ascorbic acid (vitamin C) 500 mg 1,000 mg PO LUNCH Sup plement 11/25/20 03/11/25 11:50 History tablet calcium carbonate (Calcium 600) 600 mg PO DAILY supple ment 12/29/21 Unknown History clopidogrel 75 mg tablet 75 mg PO DAILY Blood clots # 90 tabs 10/23/24 04/15/25 Rx Lactobacillus acidophilus 600 mg PO QDAY gi 03/07/25 0 03/11/25 09:00 History (Acidophilus capsule) pregabalin 100 mg capsule 100 mg PO TID nerve pain 03/11/25 11:50 History simvastatin 20 mg tablet 20 mg PO QHS cholesterol #30 tabs 03/23/25 Unknown Rx nystatin 100,000 unit/gram topical 1 applic topical BI D PRN rash 05/07/25 Unknown History powder (Nyamyc) acetaminophen 650 mg 650 mg PO Q12H PRN pain 04/20 Unknown History tablet,extended release amlodipine 5 mg tablet 5 mg PO DAILY HTN #90 tabs 0 05/12/25 Unknown Rx metoprolol succinate 25 mg 12.5 mg (1/2 x 25 mg) PO DA FABIAN 05/12/25 Unknown Rx tablet,extended release 24 hr HEART RATE #45 tabs glimepiride 2 mg tablet 2 mg PO BID 05/18/25 Unknown History collagenase clostridium histo. 250 1 applic topical DA FABIAN #15 grams 05/21/25 Unknown Rx unit/gram topical ointment (Santyl) linezolid 600 mg tablet 600 mg PO BID #21 tabs 05/21 Unknown Rx Allergy/AdvReac Type Severity Reaction Status Date / Time Sulfa (Sulfonamide Allergy Unknown Verified 05/22/25 11:05 Antibiotics) Family History Father CAD (coronary artery disease) Heart disease Hypertension CVA (cerebral vascular accident) Mother COPD (chronic obstructive pulmonary disease) Hypertension Heart disease Heart failure Surgical History History of cardiac catheterization History of colonoscopy History of foot surgery History of repair of left rotator cuff History of total left knee replacement (~2014) History of angioplasty of peripheral vessel (~2012) amputation left toe History of left heart catheterization (~01/20/14) Social History household members: none Smoking Status: Former smoker how long ago did patient quit smokin years ago alcohol intake: never substance use type: does not use caffeine: No ROS Constitutional Constitutional: Reports frequent falls and weakness; Denies chills, fever(s) or lethargy Eyes Eyes: Denies blind spots, change in vision or loss of vision ENT HEENT: Denies bleeding gums, hoarseness or sore throat Cardiovascular Cardiovascular: Denies abdominal pain, bluish discoloration of hand/feet, chest pain with activity, claudication, cold extremities, cyanosis, dyspnea on exertion, erythema on extremities, irregular heart rhythm, leg edema, leg ulcers, numbness in extremities or weakness in extremities Respiratory/Chest Respiratory/Chest: Denies cough, excessive phlegm production, shortness of breath at rest, shortness of breath with exertion or wheezing Gastrointestinal Gastrointestinal: Denies anorexia, change in stool character, constipation, diarrhea, melena or rectal bleeding Genitourinary Genitourinary: Denies dysuria or hematuria Musculoskeletal Musculoskeletal: Denies abnormal gait Integumentary Integumentary: Reports non-healing lesions and wounds; Denies erythema Neurologic Neurologic: Denies abnormal speech, focal weakness, headache(s), loss of vision, numbness, paresthesias or sensory deficit Hematologic/Lymphatic Hematologic/Lymphatic: Denies easy bleeding, easy bruising or lymphadenopathy Physical Exam Const alert, oriented x3, no apparent distress and healthy appearing General Appearance: cooperative; Negative for combative or lethargic Orientation / Consciousness: awake Exam Limitations: no limitations HEENT Head and Scalp: normocephalic and atraumatic Eyes EOMs intact bilaterally General Eye: normal appearance of both eyes Neck full ROM General: trachea midline Resp normal respiratory effort and no use of accessory muscles Effort and Inspection: Negative for labored, stridor or audible wheezes Cardio regular rate and regular rhythm Back/Spine Cervical Spine: cervical ROM normal Extremity full ROM, normal capillary refill and no clubbing, cyanosis or edema Skin no rashes or lesions noted Neuro oriented x3, CN's II-XII intact bilaterally, no focal motor deficits and no sensory deficits noted Psych thought process normal, cooperative, affect normal, speech normal and activity/motor behavior normal Lab / Micro Data 05/25/25 04:31 05/25/25 04:31 Labs: Laboratory Results - last 24 hr 05/24/25 22:01: POC Glucose 133 H 05/25/25 04:31: WBC 5.4, RBC 2.98 L, Hgb 8.8 L, Hct 26.6 L, MCV 89.3, MCH 29.5, MCHC 33.1, RDW Std Deviation 50.9 H, RDW Coeff of [place] 15.5 H, Plt Count 234, MPV 10.6, Sodium 142, Potassium 4.2, Chloride 110 H, Carbon Dioxide 20.2 L, Anion Gap 12, BUN 38 H, Creatinine 1.11, Estim Creat Clear Calc 46.34 L, Est GFR (MDRD) Non-Af 52 L, BUN/Creatinine Ratio 34.0 H, Glucose 137 H, Calcium 9.0 05/25/25 06:47: POC Glucose 134 H 05/25/25 11:23: POC Glucose 263 H 05/25/25 13:15: Blood Type A POSITIVE, Antibody Screen NEGATIVE 05/25/25 16:35: POC Glucose 185 H Charges/Coding Visit Charges Inpatient E&M: 26477 Init Hosp L2
[2025-05-25 20:15] VITALS: BP 122/60; PULSE 64; RESP 16; TEMP 36.6; O2SAT 98
[2025-05-25] MEDS: Aspirin E.C. 81 MG Tablet PO (21:32)
[2025-05-26] VITALS (29 sets, daily range): BP systolic 100–149; BP diastolic 42–75; PULSE 52–72; RESP 11–18; TEMP 36.1–36.6; O2SAT 95–100
[2025-05-26] MEDS: Metoprolol(XL)Succ 25 MG Tablet 12.5 MG PO (05:00)
[2025-05-26 05:25] LABS: Hematocrit 29.2 % (37-47); Hemoglobin 9.2 g/dL (12.0-15.0); Mean Corp Hgb Conc 31.5 g/dL (32-36); Mean Corpuscular Volume 91.5 fL (81-99); Mean Platelet Vol. 10.5 fl (6.2-12.0); Platelet Count 254 K/mm3 (150-450); RBC Distribution Width CV 15.6 % (11.6-14.6); RBC Distribution Width SD 52.3 fl (35.1-43.9); Red Blood Count 3.19 M/mm3 (4.2-5.4); White Blood Count 6.3 K/mm3 (4.4-11.0)
[2025-05-26 06:31] LABS: Anion Gap 12 (5-15); BUN 39 mg/dL (4-19); BUN/Creat Ratio 34.0 RATIO (10-20); Calcium,Total 9.3 mg/dL (7.6-11.0); Carbon Dioxide 20.2 mmol/L (21.0-32.0); Chloride 109 mmol/L (98-108); Estimated Creatinine Clearance 44.34 ml/min (50-250); Glucose 119 mg/dL (70-99); Potassium 4.3 mmol/L (3.3-5.1)
--- NOTE | 2025-05-26 06:35 | PRE.ANES_ITS ---
ASA Classification* ASA Classification ASA Classification: 4 Assessment & Plan Anesthesia* Anesthesia Assessment Anesthesia Assessment: Discussed sedation and/or anesthesia options, risks, benefits, and alternatives with patient/parents/legal guardian/POA. Questions invited. The patient/parents/legal guardian/POA seems to understand and agrees to proceed with anesthesia plan. Reviewed the physical assessment, medical history, allergy history and patient home medications list prior to surgery/procedure/anesthetic and documented any changes. Performed airway and anesthesia risk assessments. Anesthesia Type Anesthesia Type: General (Consider LMA versus endotracheal tube intubation.) History Source History Obtained from:: Patient and Chart Anesthesia Focused Assessment* Temperature: 97.9 F Pulse Rate: 62 Blood Pressure: 149/63 Respiratory Rate: 16 Pulse Ox: 97 Oxygen Delivery Method: Room Air Airway Assessment Mouth opens: >3 cm Mallampati Score: IV Teeth Condition: Dentures (Patient has full upper and lower dentures.) Neck Range of motion (ROM): Full ROM Labs Anesthesia Preop lab: CBC WBC 6.3 K/mm3 (4.4-11.0) 05/26/25 04:52 05/26/25 RBC 3.19 M/mm3 (4.2-5.4) L 05/26/25 04:52 05/26/25 Hgb 9.2 g/dL (12.0-15.0) L 05/26/25 04:52 05/26/25 Hct 29.2 % (37-47) L 05/26/25 04:52 05/26/25 Plt Count 254 K/mm3 (150-450) 05/26/25 04:52 05/26/25 CHEMISTRY Potassium 4.3 mmol/L (3.3-5.1) 05/26/25 04:52 05/26/25 Sodium 141 mmol/L (133-145) 05/26/25 04:52 05/26/25 Magnesium 2.5 mg/dL (1.5-2.2) H 05/19/25 06:21 05/19/25 Phosphorus 3.7 mg/dL (2.7-4.5) 05/19/25 06:21 05/19/25 BUN 39 mg/dL (4-19) H 05/26/25 04:52 05/26/25 Creatinine 1.16 mg/dL (0.70-1.20) 05/26/25 04:52 05/26/25 Glucose 119 mg/dL (70-99) H 05/26/25 04:52 05/26/25 POC Glucose 116 mg/dL (74-106) H 05/26/25 05:04 05/26/25 TSH < 0.01 uIU/mL (0.358-3.74) L 02/07/17 09:38 COAG PT 15.5 SECONDS (11.7-14.9) H 05/18/25 05:21 04/21 Pre-Assessment Diagnosis/Proposed Procedure Planned Operative Procedure(s): Left femoral endarterectomy. Left femoral to tibial artery bypass with cadaveric graft. Left sartorius flap. Anesthesia History Anesthesia History - service observer: Anesthesia History - service observer Hx Hospitalization Yes: 02/2025 FELL 05/08/25 10:01 Any Problems With Anesthesia No 05/25/25 21:37 Cholinesterase deficiency No 05/25/25 21:37 You/Your Family Experience No 05/25/25 21:37 fever (hyperthermia) with Relationship Recent Exposure to Contagious No 05/25/25 21:37 Disease Does patient have nerve No 05/25/25 21:37 stimulator Patient instructed to have na 05/25/25 21:37 device shut off --Does patient have Pacemaker No 05/26/25 05:18 or ICD? When Was Last Pacemaker Check QUESTION #4 FULL TEXT: You/Your Family Experience fever (hyperthermia) with Anesthesia Last Oral Intake Last Oral intake: Last Oral Intake NPO since 00:00 05/26/25 05:18 Meds taken in AM with sips of Yes 05/26/25 05:18 water? Meds patient instructed to metoprolol 05/26/25 05:18 take am of surgery PONV PONV - service observer: PONV - service observer Female HX of Motion Sickness HX of N/V After Surgery Non-Smoker Duration of Surgery greater than 60 minutes Number of Risk Factors PONV Score Height & Weight Height & Weight: Anesthesia: Height & Weight Height 5 ft 6 in 05/23/25 10:49 Weight: 73.618 kg 05/26/25 05:18 Body Mass Index (BMI) 26.2 05/22/25 14:40 Respiratory Assessment Respiratory Assessment - service observer: Respiratory Tract Infection Hx - service observer Hx Respiratory Tract Infection No 05/25/25 21:37 STOP Sleep Apnea STOP Sleep Apnea - service observer: STOP Sleep Apnea - service observer Hx Hypertension Yes 05/23/25 08:06 Hx Sleep Apnea No 05/22/25 14:40 CPAP No 05/22/25 14:40 BIPAP No 05/22/25 14:40 Do you snore loudly (louder No 05/22/25 14:40 than talking or can be heard Do you often feel tired/ No 05/22/25 14:40 fatigued/ sleepy during daytime? Has anyone observed you stop No 05/22/25 14:40 breathing during sleep? STOP Results Negative 05/22/25 14:40 QUESTION #5 FULL TEXT : Do you snore loudly (louder than talking or can be heard through closed doors)? 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 Use History - service observer: Tobacco Use History - service observer Tobacco Use Cigarettes 04/02/24 09:13 Smoking Status Former smoker 05/22/25 14:40 Hx Tobacco Use No 05/22/25 14:40 Years Smoking Packs Smoked per Day Smoking Cessation Date was Yes - quit smoking within 15 05/22/25 14:40 within the last 15 years years Hx Smoking Cessation Date 01/01/13 05/22/25 14:40 Hx Smoking Cessation No 05/22/25 14:40 Counseling Hematologic Medial History Hematologic Hx - service observer: Hematologic Medical Hx - documentation writer Hx of Blood Transfusion Yes 05/22/25 14:40 Hx of Transfusion in last 3 Yes 05/22/25 14:40 Months Date of Last Transfusion (if UNKNOWN 05/22/25 14:40 within last 3 months) Ever experience any problems No 05/22/25 14:40 with transfusion(s)? Specify any problems Hx of Preganancy in last 3 No 05/22/25 14:40 Months Nurse Filling Out Transfusion [id number] 05/22/25 14:40 & Questions: Date: 05/22/25 05/22/25 14:40 Time: 15:54 05/22/25 14:40 Patient unable to answer at this time (ie. confused, unrespo /Reproduction History /Reproductive History - service observer: /Reproductive Hx- service observer Hx Now No 05/25/25 21:37 Gestational Age (in weeks): EDC: Hx Hx Para Hx Section SAB No 05/25/25 21:37 Active Medications Active Medications: Current Medications Generic Name Dose Route Start Last Admin Trade Name Freq PRN Reason Stop Dose Admin Acetaminophen 650 mg 05/22/25 14:40 05/25/25 21:32 Acetaminophen 325 Mg Tablet PO 650 mg Q6H PRN PRN Administration Pain 1-10 Or Fever>100.7 Amlodipine Besylate 5 mg 05/23/25 10:00 05/25/25 09:37 Amlodipine 5 Mg Tablet PO 5 mg DAILY HADLEY Administration Protocol Ascorbic Acid 1,000 mg 05/23/25 12:00 05/25/25 11:28 Ascorbic Acid 500 Mg Tablet PO 1,000 mg LUNCH HADLEY Administration Aspirin 81 mg 05/22/25 22:00 05/25/25 21:32 Aspirin E.C. 81 Mg Tablet PO 81 mg QHS HADLEY Administration Atorvastatin Calcium 10 mg 05/22/25 22:00 05/25/25 21:32 Atorvastatin Calcium 10 Mg Tablet PO 10 mg QHS HADLEY Administration Baclofen 5 mg 05/23/25 11:08 05/25/25 21:32 Baclofen 10 Mg Tablet PO 5 mg Q6H PRN PRN Administration spasms Calamine/Phenol 1 applic 05/24/25 10:00 05/25/25 21:33 Menthol/Lanolin/Calamine/Znox 113 Gm Tube TOPICAL 1 applic BID HADLEY Administration Protocol Calcium Carbonate 500 mg 05/23/25 10:00 05/25/25 09:38 Calcium Carbonate 500 Mg Tablet PO 500 mg DAILY HADLEY Administration Clopidogrel Bisulfate 75 mg 05/23/25 10:00 05/25/25 09:38 Clopidogrel Bisulfate 75 Mg Tablet PO 75 mg DAILY HADLEY Administration Compound Med 2 click 05/25/25 10:30 05/25/25 21:34 Neuropathy Pain Cream Compound 60 Click Tube TOPICAL Not Given BID HADLEY Protocol Ferrous Sulfate 325 mg 05/23/25 12:00 05/25/25 11:28 Ferrous Sulfate 325 Mg Tablet PO 325 mg DAILY@1200 HADLEY Administration Glucagon 1 mg 05/22/25 14:40 Glucagon 1 Mg/Ml Syringe IM X1 PRN Hypoglycemia Protocol Heparin Sodium (Porcine) 5,000 unit 05/22/25 22:00 05/25/25 21:33 Heparin Injection (Vial) 5,000 Unit/Ml Vial SC 5,000 unit Q8 HADLEY Administration Dextrose 250 mls @ 0 mls/hr 05/22/25 14:40 Dextrose 10%-Water IV .Q0M PRN HYPOGLYCEMIA Protocol As Directed Sodium Chloride 250 mls @ 15 mls/hr 05/22/25 14:40 IV .[id number] PRN Saline Flush Sodium Chloride 250 mls @ 15 mls/hr 05/22/25 14:40 IV .[id number] PRN Additional IVPB Infusion Sodium Chloride 250 mls @ 15 mls/hr 05/25/25 14:26 IV .[id number] PRN Saline Flush Sodium Chloride 250 mls @ 15 mls/hr 05/25/25 14:26 IV .[id number] PRN Additional IVPB Infusion Insulin Human Lispro 0 unit 05/22/25 16:00 05/26/25 05:04 Insulin Lispro 100 Unit/Ml Insuln.Pen SC Not Given ACHS HADLEY Protocol Linezolid 600 mg 05/22/25 22:00 05/25/25 21:31 Linezolid 600 Mg Tablet PO 05/31/25 22:01 600 mg BID HADLEY Administration Melatonin 3 mg 05/22/25 14:40 Melatonin 3 Mg Tablet PO QHS PRN PRN INSOMNIA Metoprolol Succinate 12.5 mg 05/23/25 10:00 05/26/25 05:00 Metoprolol(Xl)Succ 25 Mg Tablet PO 12.5 mg DAILY HADLEY Administration Protocol Multivitamins 1 tablet 05/23/25 08:00 05/25/25 09:37 Multivitamins,Therapeutic Tablet PO 1 tablet DAILYCM HADLEY Administration Ondansetron HCl 4 mg 05/22/25 14:40 Ondansetron 4 Mg/2 Ml Vial IV Q8H PRN PRN NAUSEA/VOMITING Pregabalin 100 mg 05/22/25 22:00 05/25/25 21:32 Pregabalin 50 Mg Capsule PO 100 mg TID HADLEY Administration Sodium Chloride 10 - 40 ml 05/22/25 14:40 0.9% Saline Lock 10 Ml Syringe IV UD PRN SALINE FLUSH Sodium Chloride 10 - 40 ml 05/25/25 14:26 0.9% Saline Lock 10 Ml Syringe IV UD PRN SALINE FLUSH PFSH Medical History Type 2 diabetes mellitus with foot ulcer 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 Other specified peripheral vascular diseases History of MRSA infection Pressure ulcer Ambulates with cane Shortness of breath on exertion History of edema History of echocardiogram Fall 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 Chronic painful diabetic polyneuropathy MRSA (methicillin resistant staph aureus) culture positive Depression Diabetes Back pain Vertigo History of pain when walking Hypertension Arthritis Wears dentures Post-menopausal Low iron High cholesterol Easy bruising Neuropathy Dietary restriction Former smoker Cardiology follow-up encounter History of torn meniscus of left knee Carotid artery stenosis Essential hypertension Skin lesion Hammer toe of left foot Osteomyelitis Chronic kidney disease, stage 3 Atherosclerosis of coronary artery of [place] heart without angina pectoris Hyperlipidemia Peripheral vascular occlusive disease Hammer toe of second toe of left foot Hallux valgus (acquired), right foot Healed ulcer of left foot on examination Chronic ulcer of left foot with fat layer exposed Delayed wound healing Malnutrition Osteomyelitis of foot 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 Methicillin resistant Staphylococcus aureus infection Chronic osteomyelitis of left foot Non-healing ulcer of right foot DM2 (diabetes mellitus, type 2) Home Medications ?Medication ?Instructions ?Recorded ?Last Taken ?Type aspirin 81 mg tablet,delayed 81 mg PO QHS blood clots 01/13/14 04/14/25 History release multivitamin with folic acid 400 1 tab PO DAILY Supple ment 01/13/14 11/14/16 History mcg tablet omega-3 fatty acids-fish oil 340 1 ea PO DAILY supplem ent 06/29/16 08/27/16 History mg-1,000 mg capsule ferrous sulfate 325 mg (65 mg 325 mg PO DAILY SUPPLEME NT 08/15/18 03/08/25 History iron) tablet ascorbic acid (vitamin C) 500 mg 1,000 mg PO LUNCH Sup plement 11/25/20 03/11/25 11:50 History tablet calcium carbonate (Calcium 600) 600 mg PO DAILY supple ment 12/29/21 Unknown History clopidogrel 75 mg tablet 75 mg PO DAILY Blood clots # 90 tabs 10/23/24 04/15/25 Rx Lactobacillus acidophilus 600 mg PO QDAY gi 03/07/25 0 03/11/25 09:00 History (Acidophilus capsule) pregabalin 100 mg capsule 100 mg PO TID nerve pain 03/11/25 11:50 History simvastatin 20 mg tablet 20 mg PO QHS cholesterol #30 tabs 03/23/25 Unknown Rx nystatin 100,000 unit/gram topical 1 applic topical BI D PRN rash 05/07/25 Unknown History powder ([facility]) acetaminophen 650 mg 650 mg PO Q12H PRN pain 04/20 Unknown History tablet,extended release amlodipine 5 mg tablet 5 mg PO DAILY HTN #90 tabs 0 05/12/25 Unknown Rx metoprolol succinate 25 mg 12.5 mg (1/2 x 25 mg) PO DA FABIAN 05/12/25 Unknown Rx tablet,extended release 24 hr HEART RATE #45 tabs glimepiride 2 mg tablet 2 mg PO BID 05/18/25 Unknown History collagenase clostridium histo. 250 1 applic topical DA FABIAN #15 grams 05/21/25 Unknown Rx unit/gram topical ointment (Santyl) linezolid 600 mg tablet 600 mg PO BID #21 tabs 05/21 Unknown Rx Allergy/AdvReac Type Severity Reaction Status Date / Time Sulfa (Sulfonamide Allergy Unknown Verified 05/22/25 11:05 Antibiotics) Family History Father CAD (coronary artery disease) Heart disease Hypertension CVA (cerebral vascular accident) Mother COPD (chronic obstructive pulmonary disease) Hypertension Heart disease Heart failure Surgical History History of cardiac catheterization History of colonoscopy History of foot surgery History of repair of left rotator cuff History of total left knee replacement (~2014) History of angioplasty of peripheral vessel (~2012) amputation left toe History of left heart catheterization (~01/20/14) Social History household members: none Smoking Status: Former smoker how long ago did patient quit smokin years ago alcohol intake: never substance use type: does not use caffeine: No Review of Systems (Anesthesia) ROS Narrative System reviewed and no additional complaints, except as documented.
[2025-05-26] MEDS: Lactated Ringers 1,000 ML 15 ML IV (06:50)
--- NOTE | 2025-05-26 06:57 | PCM.PN.HOSP ---
Reason for Visit Reason for Visit: Diagnoses Type 2 diabetes mellitus with foot ulcer (05/25/25) Atherosclerosis of [place] arteries of right leg with ulceration of heel and midfoot (05/25/25) Atherosclerosis of [place] arteries of left leg with ulceration of heel and midfoot (05/25/25) Other specified peripheral vascular diseases (05/25/25) Non-pressure chronic ulcer of other part of unspecified foot with unspecified severity (05/25/25) Non-pressure chronic ulcer of other part of right foot with fat layer exposed (05/25/25) 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 foot with fat layer exposed (05/25/25) Weakness (05/25/25) Unspecified fall, initial encounter (05/25/25) Subjective Subjective Patient with no acute events overnight per self and per nursing report. Patient transition from medical surgical floor to operative intervention per Dr. Clement and reevaluated in PACU. In PACU patient is still very lethargic and fatigued but is awakening. Patient status post left femoral endarterectomy with a left femoral peroneal bypass with reversed GSV and cadaver left sartorius flap. Patient per discussion with Dr. Clement did have blood loss in the OR and received 1 unit PRBC to be cautious as well as Cell Saver usage. Patient previously earlier in the day had denied fevers, chills, nausea, emesis, abdominal pain, chest pain or dyspnea. Currently in PACU upon reevaluation fatigued and not able to answer any specific questions. Objective Data Objective Data Vital Signs: Vital Signs Temp Pulse Resp BP Pulse Ox O2 Del Method 97.9 F 62 16 149/63 H 97 Room Air 05/26/25 06:39 05/26/25 06:39 05/26/25 06:39 05/26/25 06:39 05/26/25 06:39 05/26/25 06:39 Oxygen Delivery Method Room Air Weight: 162 lb 4.8 oz Body Mass Index (BMI) 26.2 Intake & Output: Intake and Output for Last 24 Hours 05/24/25 05/25/25 05/26/25 23:59 23:59 23:59 Intake Total 950 / 950 900 / 900 Output Total 1250 / 1250 Balance 950 / 950 900 / 900 -1250 / -1250 Lab / Micro Data 05/26/25 04:52 05/26/25 04:52 Labs: Laboratory Results - last 24 hr 05/25/25 04:31: Sodium 142, Potassium 4.2, Chloride 110 H, Carbon Dioxide 20.2 L, Anion Gap 12, BUN 38 H, Creatinine 1.11, Estim Creat Clear Calc 46.34 L, Est GFR (MDRD) Non-Af 52 L, BUN/Creatinine Ratio 34.0 H, Glucose 137 H, Calcium 9.0 05/25/25 06:47: POC Glucose 134 H 05/25/25 11:23: POC Glucose 263 H 05/25/25 13:15: Blood Type A POSITIVE, Antibody Screen NEGATIVE 05/25/25 16:35: POC Glucose 185 H 05/25/25 21:29: POC Glucose 140 H 05/26/25 04:52: WBC 6.3, RBC 3.19 L, Hgb 9.2 L, Hct 29.2 L, MCV 91.5, MCH 28.8, MCHC 31.5 L, RDW Std Deviation 52.3 H, RDW Coeff of Jorgito 15.6 H, Plt Count 254, MPV 10.5, Sodium 141, Potassium 4.3, Chloride 109 H, Carbon Dioxide 20.2 L, Anion Gap 12, BUN 39 H, Creatinine 1.16, Estim Creat Clear Calc 44.34 L, Est GFR (MDRD) Non-Af 50 L, BUN/Creatinine Ratio 34.0 H, Glucose 119 H, Calcium 9.3 05/26/25 05:04: POC Glucose 116 H Physical Exam Narrative Physical Examination: General: Awake, alert, oriented x 3 and cooperative, laying in MS bed, fatigued, plan for transition shortly down to the OR for surgical intervention with vascular surgery. Skin: Normal color, normal turgor, no icterus, no cyanosis except for occasional stage ecchymoses, abrasion, bilateral lower extremity diabetic foot wounds with currently dressings in place per podiatry with no drainage. HEENT: AT/NC, EOMI, PERRLA, MMM. Lungs: Mildly diminished, greater bases, proper effort, no rales, ronchi or wheezing. Heart: Regular rate with regular rhythm; no gallop, rub audible. Abdomen: Soft, NTTP, ND, normal BS. Extremities: No cyanosis, no clubbing, see skin, bilateral lower extremity foot wound dressings in place with no drainage. Neurological: Patient awake, alert, oriented as noted, cognitive function intact; pupils equally reactive to light and accommodation, cranial nerves grossly normal, moving all 4 extremities, mildly tremulous, no obvious focal deficits, strength remains moderately to severely globally decreased. Psychiatric: Affect appears fatigued otherwise normal, no acute evidence of depressive or anxiety feelings. PACU reevaluation: In PACU patient's with stable vital signs on monitor, recently transition from the OR therefore still fatigued but awakening, not able to answer orientation questions as of yet. Distal pulses to the left lower extremity intact with Doppler. Dressings in place with no drainage to the left lower extremity. Assessment & Plan Assessment/Plan (1) Fall: (2) Generalized weakness: PLAN: Plan The patient is a 75 y/o F w/ PMHx: CAD, PAD s/p peripheral angioplasty, Diabetes mellitus type II with Chronic neuropathy, Anxiety and Depression, HTN, HLD, Former tobacco use, Chronic normocytic anemia/Fe deficiency anemia, CKD stage III unclear subtype per GFR trending, chronic bilateral lower extremity diabetic ulcerations/wounds following with Dr. Irene status post recent 05/20/2025 surgical intervention with discharge 05/21/2025 unfortunately with refusal for skilled placement as there was not a TCU bed available at that time who then returned 05/22/2025 with generalized weakness and mechanical fall while attempting to transfer unable to get herself up prompting return to the hospital for evaluation and care. #1. Adult FTT, Debility with patient deferral of recommended SNF placement following recent discharge w/ return to home with mechanical fall complicated by Recent bilateral lower extremity diabetic wounds with significantly MRSA infected left lower diabetic wound with associated MRSA bacteremia: Status post 05/20/2025 incision of the bone cortex of the left ankle, surgical skin grafting to the left leg, surgical skin grafting to the left foot, application of graft substitute, wound culture from OR with MRSA, discharged on linezolid, will continue antibiotic regimen, continue podiatry involvement as well as continued infectious disease involvement and vascular surgery as noted, most recent podiatry evaluation 05/24/2025 with noted plan for continued Adaptic placement to the graft area with overlapping dry sterile dressing and single layer of Man compression bandage with plan for continued change every 3 days. Podiatry noted dressings may be removed if needed temporarily however replaced immediately following as noted. PT/OT/case management consulted for discharge planning. Patient is only willing to transition to [facility] if it is TCU and bed has been requested it is unclear if it will be made available. #2. Peripheral vascular disease, PAD with significant bilateral lower extremity wounds and ulceration: Patient following with Dr. Clement, most recent imaging noted during previous presentation also with CTA demonstrating significant calcific femoral disease bilaterally with angiogram evaluation of the tibial vessels. 05/26/25 left femoral endarterectomy, left femoral peroneal bypass with reversed GSV, cadaver left sartorius flap per Dr. Clement. Patient will transition from PACU to ICU temporarily. Patient to be initiated 05/26/25 PM on low-dose heparin drip without any bolus per discussion with vascular surgery. Will continue aspirin, Plavix, statin, hypertensive regimen however will defer to vascular surgery for adjustments or if temporary hold as needed given recent intervention if any bleeding concerns arise. Repeat hemoglobin following operative intervention pending. #3. Questionable Acute Urinary Tract Infection: Null catheter placed in the OR with mildly concerning output, urinalysis and urine culture have been requested. If concerning findings will initiate antibiotic appropriate therapy. Continue to monitor I/Os. #4. Chronic Kidney Disease Stage III, unclear subtype or GFR trending: Admission BUN/Cr 56/1.22, GFR 47, baseline renal function primarily 1.3-1.5 but did have recent presentation with acute kidney injury with creatinine up to 1.96, resolved currently and had felt at that time to be secondary to ATN, repeat BMP in AM. 05/26/2025 BUN/creatinine 39/1.16, GFR 50. #5. Diabetes mellitus type II complicated by #1 with chronic diabetic wounds and chronic diabetic neuropathy: Hold oral home regimen, maintain on ADA diet, awaiting vascular surgery wanted percent confirmation of intervention 05/26/2025, will allow n.p.o. status per their timeline, will maintain on accu checks w/ ISS, continue home pregabalin regimen. #6. Hypertension: Continue home regimen including metoprolol, amlodipine with hold parameters as needed, PRN hydralazine. #7. Hyperlipidemia: Continue home statin therapy. #8. Chronic normocytic anemia/iron deficiency anemia: Admission hemoglobin 9.5, MCV 90.2, baseline hemoglobin has vacillated but appears primarily 9 range, continue to closely trend CBC, if dropping further will investigate. Will continue iron supplementation. 05/26/2025 hemoglobin 9.2, MCV 91.5. Repeat hemoglobin following operative intervention pending. #9. Anxiety and depression: Noted history in the chart, not on regimen per current list, continue to monitor and follow-up outpatient as previously arranged. #10. Former tobacco use: Encourage continued tobacco cessation. #11. DVT prophylaxis: Held heparin preoperatively. Per discussion with vascular surgery we will plan 05/26/2025 evening initiation of the low-dose heparin drip continuously with no bolus. #12. CODE status: Patient VICTOR MANUEL is her sister. Full Code status. Charges/Coding Visit Charges Inpatient E&M: 81111 Subs Hosp L3
--- NOTE | 2025-05-26 07:30 | PLAQ_PTH ---
PATIENT: KIMBERLY NEWMAN LOC: MS3 U#:[id number] AGE/SX: 75/F ROOM: [facility] [place] [facility] [place]05/25/[address]: Dr. Christos Morrow MD : 1950 BED: 1 DIS: 06/01/2025 SPEC #: [id number] RECD: 05/26/25 15:19 STATUS: DALJIT REQ #: [id number] MARIELLE: 05/26/25 07:[address]: Russell Clement DEPT: SURGICAL PATHOLOGY RECD BY: Rei Wagner ENTERED: 05/27/25 09:13 SP TYPE: PLAQUE OTHR DR: Dr. Wilberto Suazo, DO MD Dr. Rishi Ellis, DO Dr. Patel Irene, DPM Dr. Michaela Joshua, Tissues: A - PLAQUE Procedures: Decalcification bone/plaque Surgery Specimen Level III HEADER OPERATION: Left femoral endarterectomy, left fem-tib, artery bypass PRE-OP DIAGNOSIS: 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 TISSUE SUBMITTED: A- Left femoral plaque MICROSCOPIC DIAGNOSIS A. Left femoral artery, plaque, endarterectomy: - Fibrointimal hyperplasia with calcification. - Ectopic bone with trilineage hematopoiesis. GROSS DESCRIPTION A. Received in formalin labeled with the patient's name and date of . Designated as left femoral plaque is a 4.3 x 2.8 x 1.7 cm aggregate of weiss-yellow calcified plaque. Application Developer Manager sections are submitted in 1 cassette, following [place]. [place] 05/26/2025 CPT:17946,46521
[2025-05-26 12:37] LABS: ACT Activated Clotting Time 245 sec (74-137)
[2025-05-26 12:37] LABS: ACT Activated Clotting Time 112 sec (74-137)
--- NOTE | 2025-05-26 13:57 | PCM.OPRPT ---
Operative Report (Standard) Operative Information Date of Procedure: 05/26/25 Pre-Operative Diagnosis: atherosclerosis with ulceration left ankle, forefoot, heel Post-Operative Diagnosis: same Surgery/Procedure Performed: left femoral endarterectomy left fem-peroneal bypass with reversed GSV, cadaver left sartorius flap director counseling bureau: Yes Software Performance Engineer: Payton Martinez Tasks completed by first breaker feeder: Opening, Closing, Opening & closing, Hemostasis: Tie, Hemostasis: Electrocautery and Retracting Type of Anesthesia: General RN Documented Start/Stop Times: Operation Date: 05/26/25 07:30 Case Time Into Pre-Op 05/26/25 06:26 Out of Pre-Op 05/26/25 07:34 Anesthesia Start 05/26/25 07:38 Into Room 05/26/25 07:38 Procedure Start 05/26/25 08:23 Procedure End 05/26/25 14:18 Anesthesia End 05/26/25 14:30 Out of Room 05/26/25 14:30 Into Recovery 05/26/25 14:32 Procedure Start Time: 08:25 Procedure Stop Time: 14:00 Select all DRAINS/GRAFTS/IMPLANTS that apply: Tissue Tissue details: cadaver GSV Estimated Blood Loss: 900 Specimen collected: Yes Description of specimen(s) removed: left femoral plaque Description of surgery: HPI: Patient is a 75-year-old female with severe multilevel atherosclerosis with recurrent ulceration multiple points on her left lower extremity including medial ankle, heel, lateral forefoot. She has severe calcified common femoral disease and profunda disease as well as calcified SFA popliteal with reconstitution of a peroneal dominant runoff. She presents now for femoral endarterectomy with femoral to peroneal bypass with cadaver great saphenous vein. Given the degree of calcification and extensive dissection required to find vessel that could be clamped down onto the secondary branch of the profunda and proximally well above the inguinal ligament a modifier 22 was applied for an additional 1 hour of operative time. Description of procedure: Upon obtaining informed consent and verification of correct patient procedure site the patient was taken to the operating where she was placed under general anesthesia. She was then positioned prepped and draped in usual sterile fashion a time was performed. Vertical incision made over the femoral artery and Bovie was used to dissect through subcutaneous tissue then self-retaining retractor put in position. Further dissection was carried down to the femoral sheath which was then incised vertically extending up to the inguinal ligament. The inguinal ligament was mobilized along its inferior border allowing cephalad retraction facilitating further dissection onto the distal external iliac artery. The entirety of the common femoral artery and the distal external iliac artery was densely calcified circumferentially and was not safe for clamp placement. Ultimately we were able to find a single segment of vessel that was not circumferentially calcified in the mid external iliac artery which we felt was our best option for clamp position. This was dissected free circumferentially and a right angle was placed vessel loop. Further dissection was then carried down to the femoral bifurcation and onto the proximal superficial femoral artery. This vessel was densely calcified and totally occluded but it was dissected free circumferentially and a right angle used to place a vessel loop. Finally we dissected down to the profundofemoral artery down onto the secondary branches to a point where we could find a portion that was safer clamp placement. Branches were then isolated and right angle used to place Vesseloops on each of these individually. Next longitudinal incision made along the medial mid calf and Bovie used to dissect down to the level the fascia. The fascia was incised and self-retaining retractors put in position with further dissection then carried down through the loose connective tissue mobilizing the gastrocnemius muscle and exposing the soleus muscle. The soleus muscle was then mobilized beginning proximally at the hiatus for the vessels and detached from its insertion in the posterior aspect of the tibia with care taken to identify and protect adjacent vessels and nerves. Ultimately were able to visualize and palpate a soft segment of peroneal artery several centimeters distal to its origin at which point we sharp dissection to dissect free circumferentially. A right angle was placed vessel the proximal and distal and we then tunneled an anatomic position from the distal incision to the femoral incision. At this point the cadaver vessel was thawed per baker paint's instructions. Simultaneously the patient was heparinized and allowed to circulate for 3 minutes with subsequent heparin dosing based on ACT results. We then clamped the external iliac artery as well as the profunda branches and utilize a vessel loop to occlude the superficial femoral artery. A longitudinal arteriotomy was created with 11 blade in the proximal profunda and extended with Elizabeth scissors to the proximal common femoral artery beyond the area of dense calcified plaque and stenosis. We had suboptimal control both proximal and distal due to the calcified nature of the vessels but we were ultimately able to reposition her clamps on the profunda to obtain satisfactory control. A 6 [place] Ric was then placed proximally to augment proximal hemostasis while we performed her endarterectomy with a satisfactory endpoint distally onto the profunda. A bovine pericardial patch was then brought in the field and secured in position with 6-0 Prolene in a running fashion. After completing the proximal segment of the suture line a hydrogel clamp was then placed allowing us to remove the Ric balloon and providing better hemostasis. We then completed the suture line, back flushed and the vessels prior to completion. After completing the suture line clamps removed and satisfactory stasis was observed. There is improved palpable pulse into the distal common femoral artery and onto the proximal profunda with a satisfactory Doppler signal. Next the common femoral in the segment that had been patched was occluded with atraumatic clamps and a longitudinal arteriotomy created with 11 blade extended with Elizabeth scissors. The cadaver vein was then flushed and sidebranch hemostasis assessed. The vein was then oriented and reversed configuration and beveled to match the arteriotomy. Anastomosis was performed with a 6-0 Prolene in a running fashion. After completing suture line the vessel were flushed into the graft and hemostasis from all the sidebranches observed. The vein was then marked to maintain orientation secured to the tunneler and pulled through to the distal incision. The peroneal artery was then occluded with Vesseloops and a longitudinal arteriotomy created with 11 blade extended with Elizabeth scissors. The vein was then cut the length and beveled to match the arteriotomy and anastomosis performed using a 7-0 Prolene in a running fashion. Prior to completing suture line the vessels are backbled and the graft flushed. After completing suture line clamps removed and satisfactory stasis was observed. There is a palpable pulse in the bypass graft and a low resistant Doppler signal within the distal bypass graft and into the outflow vessel. Heparin was then reversed with protamine and combination of Hemoblast and Elsa topical hemostatic applied to the 2 incisions with ultimately satisfactory hemostasis observed. We then turned our attention to the sartorius muscle. Bovie was used to dissect laterally in the femoral incision up to the fascia inferior to the ASIS. This was then incised vertically exposing the sartorius muscle which was mobilized along its lateral edge up to its insertion into the anterior superior iliac spine. The muscle insertion was then divided with Bovie and the muscle reflected medially with tension-free satisfactory coverage of the femoral vessels, patch, and proximal bypass. The incision was then inspected for hemostasis and the sartorius secured in position with a 2-0 Vicryl interrupted fashion. The femoral incision was then closed with 3-0 Vicryl followed by 4-0 Monocryl and Prineo for the skin. The lower leg incision was closed with 2-0 Vicryl, 3-0 Vicryl, 4-0 Monocryl and Prineo for the skin. A Prevena was then applied to the femoral incision and a dry sterile dressing to the lower leg incision. The patient then awakened from anesthesia taken to the recovery room with dissipated admission to the intensive care unit for hemodynamic and vascular monitoring. Again modifier 22 was applied given the extensive dissection required to obtain adequate control of the femoral vessels contributing approximate 1 hour to the procedure. Surgical Findings: see above Complications Complications: No
--- NOTE | 2025-05-26 14:38 | PCM.POST.ANE ---
Anesthesia: Postop Eval I Current Vital Signs Temperature: 98 F Pulse Rate: 53 Blood Pressure: 148/75 Respiratory Rate: 16 Pulse Ox: 100 Oxygen Delivery Method: Simple Mask Oxygen Flow Rate (L/min): 8 Assessment Airway patent: Yes Spontaneous unlabored respirations: No Mental status: Awake nausea: No Vomiting: No Anesthesia Complication: No Fluid Hydration Crystalloid volume administer (ml): 2,500 Blood Product volume administered (ml): 300 Total IV fluid infused: 2,800 Progress Note Anesthesia document: Postop Eval 1 completed: No
--- NOTE | 2025-05-26 14:56 | CASEMGMT ---
RN CM Readmission Note Previous Admission: 05/18/25-05/21/25 Diagnosis: DM foot wound, UTI, rhabdo DC Disposition: Home with [facility] Current Admission: Admitted 05/23/25, changed to inpatient on 05/25/25 Current Diagnosis: generalized weakness Pt dc'd to home with [facility] as pt declined SNF from previous admission. Pt previously had extesive I&D with bone cortex bx and skin grafts by on 05/20/25. Pt to have dressing changes by [facility] and on oral atb. Plan for pt to come back for OR with vascular ( this happened today). Pt returned to [facility] on 05/23/25 after sliding off chair, dx generalized weakness. Pt is agreeable to SNF at this point for [facility] TCU.
[2025-05-26 16:36] LABS: Hematocrit 29.8 % (37-47); Hemoglobin 9.6 g/dL (12.0-15.0); Immature Granulocytes Count 0.430 X10^3/uL (0.0-0.0); Mean Corp Hgb Conc 32.2 g/dL (32-36); Mean Corpuscular Volume 90.9 fL (81-99); Mean Platelet Vol. 11.0 fl (6.2-12.0); NRBC Flagged by Analyzer 0 % (0-5); Platelet Count 241 K/mm3 (150-450); RBC Distribution Width CV 15.4 % (11.6-14.6); RBC Distribution Width SD 51.2 fl (35.1-43.9); Red Blood Count 3.28 M/mm3 (4.2-5.4); White Blood Count 16.0 K/mm3 (4.4-11.0)
[2025-05-26 16:59] LABS: Mucous, Urine 0 SEEN /hpf (<or=2+)
[2025-05-26 18:19] LABS: Color, Urine Yellow (Yellow); Glucose, Dipstick Normal (Normal); Ketone-Dipstick 5 mg/dl (Negative); Leukocyte Esterase-Dipstick 500 /ul (Negative); Nitrite-Dipstick Negative (Negative); Occult Blood-Urine 50 /ul (Negative); Protein-Dipstick 100 mg/dl (Negative); Specific Gravity, Urine 1.025 (1.002-1.030); Urine Bilirubin Dipstick Negative (Negative)
[2025-05-26 20:00] LABS: Red Blood Cells-Urine 5-10 SEEN /hpf (0-5); Squamous Epithelial Cells - UA 5-10 SEEN /hpf (5-10)
[2025-05-26 20:02] LABS: Yeast-Urine 1+ /hpf (None Seen)
[2025-05-26] MEDS: HYDROmorphone 0.5 MG/0.5 ML SYRINGE IV (20:45)
[2025-05-26] MEDS: HEPARIN/D5w 25,000 UNITS 25,000 UNITS/250 ML IV.SOLN. 5 UNITS CONT INF (20:52)
[2025-05-26] MEDS: Aspirin E.C. 81 MG Tablet PO (20:56)
[2025-05-27] VITALS (27 sets, daily range): BP systolic 96–153; BP diastolic 39–91; PULSE 69–94; RESP 11–20; TEMP 36.3–37.1; O2SAT 92–100; BMI 24.1
--- NOTE | 2025-05-27 00:35 | POSTOPAN2_ITS ---
Anesthesia Postop Eval I Sum Postop Eval Completion status Anesthesia document: Postop Eval 1 completed: No Anesthesia Postop Eval I Summary Anesthesia Postop Eval I Summary: Anesthesia Postop Eval I: Assessment Summary Airway patent Yes 05/26/25 14:39 ELECTRIC CUTTER OPERATOR.[email or web address] Spontaneous unlabored No 05/26/25 14:39 ELECTRIC CUTTER OPERATOR.SOBR respirations Mental status Awake 05/26/25 14:39 ELECTRIC CUTTER OPERATOR.SOBR nausea No 05/26/25 14:39 ELECTRIC CUTTER OPERATOR.SOBR Vomiting No 05/26/25 14:39 ELECTRIC CUTTER OPERATOR.SOBR Anesthesia Postop Eval I: Fluid Summary Crystalloid volume administer 2,500 05/26/25 14:39 ELECTRIC CUTTER OPERATOR.SOBR (ml) Colloids volume administered ( ml) Blood Product volume 300 05/26/25 14:39 ELECTRIC CUTTER OPERATOR.SOBR administered (ml) Total IV fluid infused 2,800 05/26/25 14:39 ELECTRIC CUTTER OPERATOR.SOBR Anesthesia Postop Eval I: Summary Notes Anesthesia Complication No 05/26/25 14:39 ELECTRIC CUTTER OPERATOR.SOBR Anesthesia Complication Comment: Post-operative progress note Anesthesia: Postop Eval II Evaluation Mental status: Awake and Calm Pain Level: 1 nausea: No Vomiting: No Progress Note Post-operative progress note: Breathing easily. Complications Anesthesia Complication: No
--- NOTE | 2025-05-27 00:35 | PCM.POSTANE2 ---
Anesthesia Postop Eval I Sum Postop Eval Completion status Anesthesia document: Postop Eval 1 completed: No Anesthesia Postop Eval I Summary Anesthesia Postop Eval I Summary: Anesthesia Postop Eval I: Assessment Summary Airway patent Yes 05/26/25 14:39 INSTALLATION SUPERVISOR.SOBR Spontaneous unlabored No 05/26/25 14:39 INSTALLATION SUPERVISOR.SOBR respirations Mental status Awake 05/26/25 14:39 INSTALLATION SUPERVISOR.SOBR nausea No 05/26/25 14:39 INSTALLATION SUPERVISOR.SOBR Vomiting No 05/26/25 14:39 INSTALLATION SUPERVISOR.SOBR Anesthesia Postop Eval I: Fluid Summary Crystalloid volume administer 2,500 05/26/25 14:39 INSTALLATION SUPERVISOR.SOBR (ml) Colloids volume administered ( ml) Blood Product volume 300 05/26/25 14:39 INSTALLATION SUPERVISOR.SOBR administered (ml) Total IV fluid infused 2,800 05/26/25 14:39 INSTALLATION SUPERVISOR.SOBR Anesthesia Postop Eval I: Summary Notes Anesthesia Complication No 05/26/25 14:39 INSTALLATION SUPERVISOR.SOBR Anesthesia Complication Comment: Post-operative progress note Anesthesia: Postop Eval II Evaluation Mental status: Awake and Calm Pain Level: 1 nausea: No Vomiting: No Progress Note Post-operative progress note: Breathing easily. Complications Anesthesia Complication: No
[2025-05-27 03:20] LABS: Hematocrit 26.6 % (37-47); Hemoglobin 8.5 g/dL (12.0-15.0); Immature Granulocytes Count 0.340 X10^3/uL (0.0-0.0); Mean Corp Hgb Conc 32.0 g/dL (32-36); Mean Corpuscular Volume 90.8 fL (81-99); Mean Platelet Vol. 9.9 fl (6.2-12.0); NRBC Flagged by Analyzer 0 % (0-5); Platelet Count 239 K/mm3 (150-450); RBC Distribution Width CV 15.9 % (11.6-14.6); RBC Distribution Width SD 52.5 fl (35.1-43.9); Red Blood Count 2.93 M/mm3 (4.2-5.4); White Blood Count 13.2 K/mm3 (4.4-11.0)
[2025-05-27 03:29] LABS: Prothrombin Time (Protime)PT. 14.5 SECONDS (11.7-14.9)
[2025-05-27 04:12] LABS: Anion Gap 14 (5-15); BUN 36 mg/dL (4-19); BUN/Creat Ratio 32.6 RATIO (10-20); Calcium,Total 8.5 mg/dL (7.6-11.0); Carbon Dioxide 19.3 mmol/L (21.0-32.0); Chloride 108 mmol/L (98-108); Estimated Creatinine Clearance 47.19 ml/min (50-250); Glucose 208 mg/dL (70-99); Potassium 4.9 mmol/L (3.3-5.1)
--- NOTE | 2025-05-27 06:47 | PCM.PN.HOSP ---
Reason for Visit Reason for Visit: Diagnoses Type 2 diabetes mellitus with foot ulcer (05/25/25) Atherosclerosis of [place] arteries of right leg with ulceration of heel and midfoot (05/25/25) Atherosclerosis of [place] arteries of left leg with ulceration of heel and midfoot (05/25/25) Other specified peripheral vascular diseases (05/25/25) Non-pressure chronic ulcer of other part of unspecified foot with unspecified severity (05/25/25) Non-pressure chronic ulcer of other part of right foot with fat layer exposed (05/25/25) 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 foot with fat layer exposed (05/25/25) Weakness (05/25/25) Unspecified fall, initial encounter (05/25/25) Subjective Subjective Patient with no acute events overnight per self and per nursing report. Patient remains in the ICU with preference per vascular surgery to continue ICU status until 05/28/2025. Patient did have Null placed day prior with surgical intervention and as noted previously urine looks concerning therefore urinalysis and urine culture were sent and patient appears to have likely a urinary tract infection thus IV Rocephin was initiated based on previous cultures in addition to patient ongoing linezolid. Patient notes she is feeling improved and did sleep well. She does report bilateral lower extremity discomfort but it is not severe and more of an aching. Pulse Doppler checks this morning were appropriately positive. Patient denies fevers, chills, nausea, emesis, abdominal pain, chest pain or dyspnea. Objective Data Objective Data Vital Signs: Vital Signs Temp Pulse Resp BP Pulse Ox O2 Del Method O2 Flow Rate 97.6 F L 84 15 112/47 L 100 Nasal Cannula 1 05/27/25 03:00 05/27/25 06:00 05/27/25 06:00 05/27/25 06:00 05/27/25 05:00 05/27/25 06:00 05/27/25 06:00 Oxygen Flow Rate (L/min) 1 Oxygen Delivery Method Nasal Cannula Weight: 149 lb 11.102 oz Body Mass Index (BMI) 24.1 Intake & Output: Intake and Output for Last 24 Hours 05/25/25 05/26/25 05/27/25 23:59 23:59 23:59 Intake Total 900 / 900 182.5 / 182.5 Output Total 3400 / 3650 500 / 500 Balance 900 / 900 -3217.5 / -3467.5 -500 / -500 Lab / Micro Data 05/27/25 03:05 05/27/25 03:05 Labs: Laboratory Results - last 24 hr 05/26/25 04:52: Blood Type A POSITIVE, Antibody Screen NEGATIVE, Crossmatch See Detail 05/26/25 07:22: Activated Clotting Time 112 05/26/25 09:23: Activated Clotting Time 245 H 05/26/25 15:13: WBC 16.0 H, RBC 3.28 L, Hgb 9.6 L, Hct 29.8 L, MCV 90.9, MCH 29.3, MCHC 32.2, RDW Std Deviation 51.2 H, RDW Coeff of [place] 15.4 H, Plt Count 241, MPV 11.0, Immature Gran % (Auto) 2.700 H, Neut % (Auto) 86.8 H, Lymph % (Auto) 5.2 L, [place] % (Auto) 4.3, Eos % (Auto) 0.4, Baso % (Auto) 0.6, Absolute Neuts (auto) 13.9 H, Absolute Lymphs (auto) 0.83, Nucleated RBC % 0 05/26/25 15:43: POC Glucose 193 H 05/26/25 15:56: Urine Color Yellow, Urine Clarity Turbid, Urine pH 5.0, Ur Specific [place] 1.025, Urine Protein 100 H, Urine Glucose (UA) Normal, Urine Ketones 5 H, Urine Occult Blood 50 H, Urine Nitrite Negative, Urine Bilirubin Negative, Urine Urobilinogen Normal, Ur Leukocyte Esterase 500 H, Urine RBC 5-10 SEEN, Urine WBC >100 SEEN, Ur Squamous Epith Cells 5-10 SEEN, Amorphous Sediment 2+, Urine Bacteria 1+, Urine Mucus 0 SEEN, Urine Yeast 1+ 05/26/25 17:12: POC Glucose 182 H 05/27/25 03:05: WBC 13.2 H, RBC 2.93 L, Hgb 8.5 L, Hct 26.6 L, MCV 90.8, MCH 29.0, MCHC 32.0, RDW Std Deviation 52.5 H, RDW Coeff of [place] 15.9 H, Plt Count 239, MPV 9.9, Immature Gran % (Auto) 2.600 H, Neut % (Auto) 83.8 H, Lymph % (Auto) 7.3 L, [place] % (Auto) 5.8, Eos % (Auto) 0.1, Baso % (Auto) 0.4, Absolute Neuts (auto) 11.0 H, Absolute Lymphs (auto) 0.96, Nucleated RBC % 0, PT 14.5, INR 1.1, Sodium 141, Potassium 4.9, Chloride 108, Carbon Dioxide 19.3 L, Anion Gap 14, BUN 36 H, Creatinine 1.09, Estim Creat Clear Calc 47.19 L, Est GFR (MDRD) Non-Af 54 L, BUN/Creatinine Ratio 32.6 H, Glucose 208 H, Calcium 8.5 Physical Exam Narrative Physical Examination: General: Awake, alert, oriented x 3 and cooperative, seated upright in the ICU bed, fatigued and notes some bilateral lower extremity distal pain but not severe. Skin: Normal color, normal turgor, no icterus, no cyanosis except for occasional stage ecchymoses, abrasion, bilateral lower extremity dressings in place, status post recent left lower extremity vascular intervention, present for Doppler ultrasound assessment both of which audible. HEENT: AT/NC, EOMI, PERRLA, MMM. Lungs: Mildly diminished, greater bases, proper effort, no rales, ronchi or wheezing. Heart: Regular rate with regular rhythm; no gallop, rub audible. Abdomen: Soft, NTTP, ND, normal BS. Extremities: No cyanosis, no clubbing, see skin, bilateral lower extremity dressings, see skin. Neurological: Patient awake, alert, oriented as noted, cognitive function intact; pupils equally reactive to light and accommodation, cranial nerves grossly normal, moving all 4 extremities, mildly tremulous, no obvious focal deficits, strength severely globally decreased given recent intervention. Psychiatric: Affect appears fatigued otherwise normal, no acute evidence of depressive or anxiety feelings. Assessment & Plan Assessment/Plan (1) Fall: (2) Generalized weakness: PLAN: Plan The patient is a 75 y/o F w/ PMHx: CAD, PAD s/p peripheral angioplasty, Diabetes mellitus type II with Chronic neuropathy, Anxiety and Depression, HTN, HLD, Former tobacco use, Chronic normocytic anemia/Fe deficiency anemia, CKD stage III unclear subtype per GFR trending, chronic bilateral lower extremity diabetic ulcerations/wounds following with Dr. Irene status post recent 05/20/2025 surgical intervention with discharge 05/21/2025 unfortunately with refusal for skilled placement as there was not a TCU bed available at that time who then returned 05/22/2025 with generalized weakness and mechanical fall while attempting to transfer unable to get herself up prompting return to the hospital for evaluation and care. #1. Adult FTT, Debility with patient deferral of recommended SNF placement following recent discharge w/ return to home with mechanical fall complicated by Recent bilateral lower extremity diabetic wounds with significantly MRSA infected left lower diabetic wound with associated MRSA bacteremia: Status post 05/20/2025 incision of the bone cortex of the left ankle, surgical skin grafting to the left leg, surgical skin grafting to the left foot, application of graft substitute, wound culture from OR with MRSA, discharged on linezolid, will continue antibiotic regimen, continue podiatry involvement as well as continued infectious disease involvement and vascular surgery as noted, most recent podiatry evaluation 05/24/2025 with noted plan for continued Adaptic placement to the graft area with overlapping dry sterile dressing and single layer of Man compression bandage with plan for continued change every 3 days. Podiatry noted dressings may be removed if needed temporarily however replaced immediately following as noted. PT/OT/case management consulted for discharge planning. Patient is only willing to transition to skilled if it is TCU and bed has been requested it is unclear if it will be made available. #2. Peripheral vascular disease, PAD with significant bilateral lower extremity wounds and ulceration: Patient following with Dr. Clement, most recent imaging noted during previous presentation also with CTA demonstrating significant calcific femoral disease bilaterally with angiogram evaluation of the tibial vessels. 05/26/25 left femoral endarterectomy, left femoral peroneal bypass with reversed GSV, cadaver left sartorius flap per Dr. Clement. Patient remains in the ICU with plan for transition out per vascular surgery preference 05/28/2025. Patient initiated on low-dose heparin drip postoperatively in the evening and will defer to preference to alteration to vascular surgery. Continue aspirin, Plavix, statin, hypertensive regimen however will defer to vascular surgery for adjustments or if temporary hold as needed given recent intervention if any bleeding concerns arise. 05/26/2025 postoperative hemoglobin 9.6, 05/27/25 AM hemoglobin 8.5, continue to trend. #3. Acute Complicated Urinary Tract Infection: Null catheter placed in the OR with mildly concerning output, urinalysis and urine culture have been requested but urinalysis is concerning appearing, will continue IV Rocephin, will plan to de-escalate Null in the next 24 hours, continue to monitor I/Os, transition to focused antibiotic therapy once species and sensitivities result. #4. Chronic Kidney Disease Stage III, unclear subtype or GFR trending: Admission BUN/Cr 56/1.22, GFR 47, baseline renal function primarily 1.3-1.5 but did have recent presentation with acute kidney injury with creatinine up to 1.96, resolved currently and had felt at that time to be secondary to ATN, repeat BMP in AM. 05/27/2025 BUN/creatinine 36/1.09, GFR 54. #5. Diabetes mellitus type II complicated by #1 with chronic diabetic wounds and chronic diabetic neuropathy: Hold oral home regimen, maintain on ADA diet, awaiting vascular surgery wanted percent confirmation of intervention 05/26/2025, will allow n.p.o. status per their timeline, will maintain on accu checks w/ ISS, continue home pregabalin regimen. #6. Hypertension: Continue home regimen including metoprolol, amlodipine with hold parameters as needed, PRN hydralazine. #7. Hyperlipidemia: Continue home statin therapy. #8. Chronic normocytic anemia/iron deficiency anemia: Admission hemoglobin 9.5, MCV 90.2, baseline hemoglobin has vacillated but appears primarily 9 range, continue to closely trend CBC, if dropping further will investigate. Will continue iron supplementation. 05/26/2025 hemoglobin 9.2, MCV 91.5--> postoperative 05/26/25 hemoglobin 9.6, 05/27/25 AM hemoglobin 8.5, continue to trend. #9. Anxiety and depression: Noted history in the chart, not on regimen per current list, continue to monitor and follow-up outpatient as previously arranged. #10. Former tobacco use: Encourage continued tobacco cessation. #11. DVT prophylaxis: Held heparin preoperatively. Per discussion with vascular surgery we will plan 05/26/2025 evening initiation of the low-dose heparin drip continuously with no bolus. #12. CODE status: Patient VICTOR MANUEL is her sister. Full Code status. Charges/Coding Visit Charges Inpatient E&M: 28138 Subs Hosp L3
[2025-05-27] MEDS: Lactobacillis Acidophilus 1 CAP PO (08:29)
[2025-05-27] MEDS: Metoprolol(XL)Succ 25 MG Tablet 12.5 MG PO (08:31)
--- NOTE | 2025-05-27 09:31 | WOUNDNOTE ---
wound photo: left medial ankle
--- NOTE | 2025-05-27 09:31 | WOUNDNOTE ---
wound photo: left medial lower leg
--- NOTE | 2025-05-27 09:32 | WOUNDNOTE ---
wound photo: left lower leg/medial ankle
--- NOTE | 2025-05-27 09:33 | WOUNDNOTE ---
wound photo: left lateral foot
--- NOTE | 2025-05-27 09:34 | WOUNDNOTE ---
wound photo:left heel
--- NOTE | 2025-05-27 09:35 | WOUNDNOTE ---
wound photo: right heel
[2025-05-27] MEDS: 0.9% Normal Saline (250mL Bag) 250 ML 100 ML IV (09:55)
--- NOTE | 2025-05-27 10:10 | PN.SURG_ITS ---
Subjective Subjective I saw patient this morning resting comfortably in bed. She reported some discomfort around the groin access site but otherwise had no complaints. There was report of one episode of possible coffee ground emesis overnight, no emesis since. She has been hemodynamically stable, Hgb was overall stable this morning. Objective Data Objective Data Vital Signs: Vital Signs Temp Pulse Resp BP Pulse Ox O2 Del Method O2 Flow Rate 97.6 F L 82 18 120/52 L 100 Nasal Cannula 1 05/27/25 03:00 05/27/25 08:31 05/27/25 07:00 05/27/25 08:31 05/27/25 07:00 05/27/25 07:00 05/27/25 07:00 Oxygen Flow Rate (L/min) 1 Oxygen Delivery Method Nasal Cannula Weight: 149 lb 11.102 oz Body Mass Index (BMI) 24.1 Intake & Output: Intake and Output for Last 24 Hours 05/25/25 05/26/25 05/27/25 23:59 23:59 23:59 Intake Total 900 / 900 182.5 / 182.5 Output Total 3400 / 3650 500 / 500 Balance 900 / 900 -3217.5 / -3467.5 -500 / -500 Lab / Micro Data 05/27/25 03:05 05/27/25 03:05 Labs: Laboratory Results - last 24 hr 05/26/25 04:52: Blood Type A POSITIVE, Antibody Screen NEGATIVE, Crossmatch See Detail 05/26/25 07:22: Activated Clotting Time 112 05/26/25 09:23: Activated Clotting Time 245 H 05/26/25 15:13: WBC 16.0 H, RBC 3.28 L, Hgb 9.6 L, Hct 29.8 L, MCV 90.9, MCH 29.3, MCHC 32.2, RDW Std Deviation 51.2 H, RDW Coeff of [place] 15.4 H, Plt Count 241, MPV 11.0, Immature Gran % (Auto) 2.700 H, Neut % (Auto) 86.8 H, Lymph % (Auto) 5.2 L, [place] % (Auto) 4.3, Eos % (Auto) 0.4, Baso % (Auto) 0.6, Absolute Neuts (auto) 13.9 H, Absolute Lymphs (auto) 0.83, Nucleated RBC % 0 05/26/25 15:43: POC Glucose 193 H 05/26/25 15:56: Urine Color Yellow, Urine Clarity Turbid, Urine pH 5.0, Ur Specific [place] 1.025, Urine Protein 100 H, Urine Glucose (UA) Normal, Urine Ketones 5 H, Urine Occult Blood 50 H, Urine Nitrite Negative, Urine Bilirubin Negative, Urine Urobilinogen Normal, Ur Leukocyte Esterase 500 H, Urine RBC 5-10 SEEN, Urine WBC >100 SEEN, Ur Squamous Epith Cells 5-10 SEEN, Amorphous Sediment 2+, Urine Bacteria 1+, Urine Mucus 0 SEEN, Urine Yeast 1+ 05/26/25 17:12: POC Glucose 182 H 05/26/25 20:37: POC Glucose 221 H 05/27/25 03:05: WBC 13.2 H, RBC 2.93 L, Hgb 8.5 L, Hct 26.6 L, MCV 90.8, MCH 29.0, MCHC 32.0, RDW Std Deviation 52.5 H, RDW Coeff of [place] 15.9 H, Plt Count 239, MPV 9.9, Immature Gran % (Auto) 2.600 H, Neut % (Auto) 83.8 H, Lymph % (Auto) 7.3 L, [place] % (Auto) 5.8, Eos % (Auto) 0.1, Baso % (Auto) 0.4, Absolute Neuts (auto) 11.0 H, Absolute Lymphs (auto) 0.96, Nucleated RBC % 0, PT 14.5, INR 1.1, Sodium 141, Potassium 4.9, Chloride 108, Carbon Dioxide 19.3 L, Anion Gap 14, BUN 36 H, Creatinine 1.09, Estim Creat Clear Calc 47.19 L, Est GFR (MDRD) Non-Af 54 L, BUN/Creatinine Ratio 32.6 H, Glucose 208 H, Calcium 8.5 05/27/25 08:14: POC Glucose 237 H Physical Exam Const alert and oriented x3 General Appearance: cooperative HEENT normocephalic, head/scalp atraumatic, hearing grossly normal bilaterally, external ears normal and external nose normal Eyes EOMs intact bilaterally General Eye: normal appearance of both eyes Neck General: normal visual inspection and trachea midline Resp normal respiratory effort, normal air movement, no retractions and no use of accessory muscles Effort and Inspection: able to speak in complete sentences; Negative for labored, grunting or stridor Cardio regular rate and regular rhythm Extremity Extremity Narrative: L groin incision site with Prevena vac dressing intact, maintaining good seal. Soft to palpation, no apparent hematoma. L leg incision site with skin glue intact, no dehiscence/edema/erythema/drainage L DP/PT with strong monophasic doppler signals Skin no rashes or lesions noted Wounds: wounds noted Neuro oriented x3, CN's II-XII intact bilaterally, moves all extremities and no focal motor deficits Speech: speech normal Psych mental status grossly normal Appearance: grossly normal Attitude: calm and engaged Activity / Motor Behavior: appropriate eye contact Speech: normal speech Mood & Affect: euthymic mood Assessment & Plan Assessment/Plan (1) Peripheral vascular occlusive disease: PLAN: She is POD#1 from L fem endart, L fem-peroneal bypass with cadaver graft, and left sartorius flap. Vascular exam is improved and satisfactory. Incision sites are satisfactory, prevena vac dressing is maintaining good seal. Continue low-dose heparin drip for now as long as Hgb remains stable; plan to discontinue this at discharge. Continue ASA and Plavix, these will be continued at discharge. OK to d/c gonzalez and arterial line. Progress diet as tolerated. Plan to work with PT/OT for evaluations, anticipating discharge to TCU if able to accept. From surgical standpoint, anticipate she will be appropriate for discharge tomorrow. Charges/Coding Procedures Integumentary [id number]: [id number] Global Visit
--- NOTE | 2025-05-27 10:55 | CASEMGMT ---
Noted that the pt prefers TCU at the time of DC. Per ICU rounds, pt is not medically ready at this time as the pt is displaying minor confusion, coffee ground emesis, and low Hgb levels. CM to follow and make referral to TCU once appropriate.
[2025-05-27] MEDS: Neuropathy Pain Cream Compound 60 CLICK TUBE TOPICAL ×2 (16:12→21:25)
[2025-05-27] MEDS: Aspirin E.C. 81 MG Tablet PO (21:23)
[2025-05-28] VITALS (18 sets, daily range): BP systolic 101–126; BP diastolic 37–66; PULSE 64–80; RESP 12–17; TEMP 36.2–36.9; O2SAT 94–100; BMI 25.7
[2025-05-28 04:08] LABS: Hematocrit 23.0 % (37-47); Hemoglobin 7.3 g/dL (12.0-15.0); Immature Granulocytes Count 0.200 X10^3/uL (0.0-0.0); Mean Corp Hgb Conc 31.7 g/dL (32-36); Mean Corpuscular Volume 91.6 fL (81-99); Mean Platelet Vol. 9.8 fl (6.2-12.0); NRBC Flagged by Analyzer 0 % (0-5); Platelet Count 173 K/mm3 (150-450); RBC Distribution Width CV 16.1 % (11.6-14.6); RBC Distribution Width SD 54.3 fl (35.1-43.9); Red Blood Count 2.51 M/mm3 (4.2-5.4); White Blood Count 9.7 K/mm3 (4.4-11.0)
[2025-05-28 04:24] LABS: Partial Thromboplast Time 63.1 Seconds (24.1-36.2)
--- NOTE | 2025-05-28 06:51 | PCM.PN.HOSP ---
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 (05/25/25) Atherosclerosis of lower brule arteries of left leg with ulceration of heel and midfoot (05/25/25) Other specified peripheral vascular diseases (05/25/25) Non-pressure chronic ulcer of other part of unspecified foot with unspecified severity (05/25/25) Non-pressure chronic ulcer of other part of right foot with fat layer exposed (05/25/25) 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 foot with fat layer exposed (05/25/25) Weakness (05/25/25) Unspecified fall, initial encounter (05/25/25) Subjective Subjective Patient with no acute events overnight per self and per nursing report. Vital signs remained stable overnight. AM hemoglobin 7.3 and given underlying cardiac history and recent vascular surgery decision for 1 unit PRBC administration which has been initiated. Patient with no bleeding from any of the operative incision sites. Wound VAC with appropriate material in the canister. Patient does reports some discomfort to the left calf but otherwise denies any severe pain. Plan of care discussed which included transition out of the ICU and awaiting [facility] facility bed at this time given stabilization medically. Patient denies fevers, chills, nausea, emesis, abdominal pain, chest pain or dyspnea. Objective Data Objective Data Vital Signs: Vital Signs Temp Pulse Resp BP Pulse Ox O2 Del Method O2 Flow Rate 97.6 F L 76 15 119/46 L 95 Room Air 2 05/28/25 00:00 05/28/25 06:00 05/28/25 06:00 05/28/25 06:00 05/28/25 06:00 05/28/25 06:00 05/27/25 12:59 Oxygen Flow Rate (L/min) 2 Oxygen Delivery Method Room Air Weight: 159 lb 6.307 oz Body Mass Index (BMI) 25.7 Intake & Output: Intake and Output for Last 24 Hours 05/26/25 05/27/25 05/28/25 23:59 23:59 23:59 Intake Total 182.5 / 182.5 377.34 / 377.34 Output Total 3400 / 3650 950 / 1200 450 / 450 Balance -3217.5 / -3467.5 -572.66 / -822.66 -450 / -450 Lab / Micro Data 05/28/25 03:50 05/27/25 03:05 Labs: Laboratory Results - last 24 hr 05/26/25 20:37: POC Glucose 221 H 05/27/25 08:14: POC Glucose 237 H 05/27/25 11:58: POC Glucose 264 H 05/27/25 16:06: POC Glucose 226 H 05/27/25 21:27: POC Glucose 220 H 05/28/25 03:50: WBC 9.7, RBC 2.51 L, Hgb 7.3 L, Hct 23.0 L, MCV 91.6, MCH 29.1, MCHC 31.7 L, RDW Std Deviation 54.3 H, RDW Coeff of Jorgito 16.1 H, Plt Count 173, MPV 9.8, Immature Gran % (Auto) 2.100 H, Neut % (Auto) 77.8 H, Lymph % (Auto) 12.6 L, Childress % (Auto) 6.5, Eos % (Auto) 0.7, Baso % (Auto) 0.3, Absolute Neuts (auto) 7.6, Absolute Lymphs (auto) 1.22, Nucleated RBC % 0, APTT 63.1 H Physical Exam Narrative Physical Examination: General: Awake, alert, oriented x 3 and cooperative, seated upright in the ICU bed, mildly fatigued but more alert the day prior, noting some left calf discomfort only. Skin: Normal color, normal turgor, no icterus, no cyanosis except for occasional stage ecchymoses, abrasion, bilateral lower extremity dressings in place, status post recent left lower extremity vascular intervention, VAC in place to the left groin with good suction, dressings in place to distal extremities with no drainage. HEENT: AT/NC, EOMI, PERRLA, MMM. Lungs: Mildly diminished, greater bases, proper effort, no rales, ronchi or wheezing. Heart: Regular rate with regular rhythm; no gallop, rub audible. Abdomen: Soft, NTTP, ND, normal BS. Extremities: No cyanosis, no clubbing, see skin, bilateral lower extremity dressings, see skin. Neurological: Patient awake, alert, oriented as noted, cognitive function intact; pupils equally reactive to light and accommodation, cranial nerves grossly normal, moving all 4 extremities, mildly tremulous, no obvious focal deficits, strength improved, moderately to severely globally decreased given recent intervention. Psychiatric: Affect appears less fatigued, more interactive, no acute evidence of depressive or anxiety feelings. Assessment & Plan Assessment/Plan (1) Fall: (2) Generalized weakness: PLAN: Plan The patient is a 75 y/o F w/ PMHx: CAD, PAD s/p peripheral angioplasty, Diabetes mellitus type II with Chronic neuropathy, Anxiety and Depression, HTN, HLD, Former tobacco use, Chronic normocytic anemia/Fe deficiency anemia, CKD stage III unclear subtype per GFR trending, chronic bilateral lower extremity diabetic ulcerations/wounds following with Dr. Irene status post recent 05/20/2025 surgical intervention with discharge 05/21/2025 unfortunately with refusal for skilled placement as there was not a TCU bed available at that time who then returned 05/22/2025 with generalized weakness and mechanical fall while attempting to transfer unable to get herself up prompting return to the hospital for evaluation and care. #1. Adult FTT, Debility with patient deferral of recommended SNF placement following recent discharge w/ return to home with mechanical fall complicated by Recent bilateral lower extremity diabetic wounds with significantly MRSA infected left lower diabetic wound with associated MRSA bacteremia: Status post 05/20/2025 incision of the bone cortex of the left ankle, surgical skin grafting to the left leg, surgical skin grafting to the left foot, application of graft substitute, wound culture from OR with MRSA, discharged on linezolid, will continue antibiotic regimen, continue podiatry involvement as well as continued infectious disease involvement and vascular surgery as noted, most recent podiatry evaluation 05/24/2025 with noted plan for continued Adaptic placement to the graft area with overlapping dry sterile dressing and single layer of Man compression bandage with plan for continued change every 3 days. Podiatry noted dressings may be removed if needed temporarily however replaced immediately following as noted. Plan for transitional care unit transition once precertification obtained potentially in the next 24 to 40 hours given cleared by vascular surgery as noted #2. #2. Peripheral vascular disease, PAD with significant bilateral lower extremity wounds and ulceration: Patient following with Dr. Clement, most recent imaging noted during previous presentation also with CTA demonstrating significant calcific femoral disease bilaterally with angiogram evaluation of the tibial vessels. 05/26/25 left femoral endarterectomy, left femoral peroneal bypass with reversed GSV, cadaver left sartorius flap per Dr. Clement. Patient remains in the ICU with plan for transition out per vascular surgery preference 05/28/2025. Continue aspirin, Plavix, statin, hypertensive regimen however will defer to vascular surgery for adjustments or if temporary hold as needed given recent intervention if any bleeding concerns arise. 05/26/2025 postoperative hemoglobin 9.6, 05/27/25 AM hemoglobin 8.5-> 05/28/25 hemoglobin 7.3, given recent vascular surgery to be cautious we will administer 1 unit PRBC and plan repeat hemoglobin approximately 1 hour following completion. Low-dose heparin discontinued in agreement with vascular surgery. Per discussion with vascular surgery 05/28/2025 patient de-escalated to medical surgical status and cleared for transition to TCU once precertification obtained. VAC care and vascular instructions/follow-up care will be addressed per vascular service. #3. Acute GP Organism Complicated Urinary Tract Infection: Gonzalez catheter placed in the OR with mildly concerning output, urinalysis and urine culture have been requested but urinalysis is concerning appearing, UCx w/ preliminary GP organism, will continue IV Rocephin, 05/28/25 d/c gonzalez, will continue to monitor I/Os, transition to focused antibiotic therapy once species and sensitivities result or if not marked growth d/c abx therapy. #4. Chronic Kidney Disease Stage III, unclear subtype or GFR trending: Admission BUN/Cr 56/1.22, GFR 47, baseline renal function primarily 1.3-1.5 but did have recent presentation with acute kidney injury with creatinine up to 1.96, resolved currently and had felt at that time to be secondary to ATN, repeat BMP in AM. 05/27/2025 BUN/creatinine 36/1.09, GFR 54->05/28/25 BMP pending. #5. Diabetes mellitus type II complicated by #1 with chronic diabetic wounds and chronic diabetic neuropathy: Hold oral home regimen, maintain on ADA diet, awaiting vascular surgery wanted percent confirmation of intervention 05/26/2025, will allow n.p.o. status per their timeline, will maintain on accu checks w/ ISS, continue home pregabalin regimen. #6. Hypertension: Continue home regimen including metoprolol, amlodipine with hold parameters as needed, PRN hydralazine. #7. Hyperlipidemia: Continue home statin therapy. #8. Chronic normocytic anemia/iron deficiency anemia: Admission hemoglobin 9.5, MCV 90.2, baseline hemoglobin has vacillated but appears primarily 9 range, continue to closely trend CBC, if dropping further will investigate. Will continue iron supplementation. 05/27/25 hemoglobin 8.5-> 05/28/25 hemoglobin 7.3, given recent vascular surgery to be cautious we will administer 1 unit PRBC and plan repeat hemoglobin approximately 1 hour following completion. Low-dose heparin discontinued in agreement with vascular surgery. #9. Anxiety and depression: Noted history in the chart, not on regimen per current list, continue to monitor and follow-up outpatient as previously arranged. #10. Former tobacco use: Encourage continued tobacco cessation. #11. DVT prophylaxis: Held heparin preoperatively. Per discussion with vascular surgery we will plan 05/26/2025 evening initiation of the low-dose heparin drip continuously with no bolus. #12. CODE status: Patient VICTOR MANUEL is her sister. Full Code status. Charges/Coding Visit Charges Inpatient E&M: 63887 Subs Hosp L2
[2025-05-28] MEDS: Metoprolol(XL)Succ 25 MG Tablet 12.5 MG PO (08:27)
[2025-05-28] MEDS: Neuropathy Pain Cream Compound 60 CLICK TUBE TOPICAL ×2 (08:28→21:24)
[2025-05-28] MEDS: Lactobacillis Acidophilus 1 CAP PO (08:28)
--- NOTE | 2025-05-28 08:32 | PN.SURG_ITS ---
Subjective Subjective I saw Gely resting in bed this morning. She reports feeling fatigued but otherwise no complaints. Her Hgb did drift down to 7.3 this morning. She has not had any further emesis, no other active bleeding noted. She has no other complaints. Objective Data Objective Data Vital Signs: Vital Signs Temp Pulse Resp BP Pulse Ox O2 Del Method O2 Flow Rate 97.1 F L 80 16 123/66 H 98 Room Air 2 05/28/25 08:05/28/25 08:27 05/28/25 08:05/28/25 08:05/28/25 08:05/28/25 08:05/27/25 12:59 Oxygen Flow Rate (L/min) 2 Oxygen Delivery Method Room Air Weight: 159 lb 6.307 oz Body Mass Index (BMI) 25.7 Intake & Output: Intake and Output for Last 24 Hours 05/26/25 05/27/25 05/28/25 23:59 23:59 23:59 Intake Total 182.5 / 182.5 377.34 / 377.34 118.17 / 118.17 Output Total 3400 / 3650 950 / 1200 450 / 450 Balance -3217.5 / -3467.5 -572.66 / -822.66 -331.83 / -331.83 Lab / Micro Data 05/28/25 03:50 05/27/25 03:05 Labs: Laboratory Results - last 24 hr 05/26/25 04:52: Blood Type A POSITIVE, Antibody Screen NEGATIVE, Crossmatch See Detail 05/26/25 20:37: POC Glucose 221 H 05/27/25 08:14: POC Glucose 237 H 05/27/25 11:58: POC Glucose 264 H 05/27/25 16:06: POC Glucose 226 H 05/27/25 21:27: POC Glucose 220 H 05/28/25 03:50: WBC 9.7, RBC 2.51 L, Hgb 7.3 L, Hct 23.0 L, MCV 91.6, MCH 29.1, MCHC 31.7 L, RDW Std Deviation 54.3 H, RDW Coeff of Jorgito 16.1 H, Plt Count 173, MPV 9.8, Immature Gran % (Auto) 2.100 H, Neut % (Auto) 77.8 H, Lymph % (Auto) 12.6 L, Alexander % (Auto) 6.5, Eos % (Auto) 0.7, Baso % (Auto) 0.3, Absolute Neuts (auto) 7.6, Absolute Lymphs (auto) 1.22, Nucleated RBC % 0, APTT 63.1 H 05/28/25 07:47: POC Glucose 184 H Physical Exam Const alert and oriented x3 General Appearance: cooperative HEENT normocephalic, head/scalp atraumatic, hearing grossly normal bilaterally, external ears normal and external nose normal Eyes EOMs intact bilaterally General Eye: normal appearance of both eyes Neck General: normal visual inspection and trachea midline Resp normal respiratory effort, normal air movement, no retractions and no use of accessory muscles Effort and Inspection: able to speak in complete sentences; Negative for labored, grunting or stridor Cardio regular rate and regular rhythm Extremity Extremity Narrative: L groin incision site with Prevena vac dressing intact, maintaining good seal. Soft to palpation, no apparent hematoma. L leg incision site with skin glue intact, no dehiscence/edema/erythema/drainage L DP with strong biphasic doppler signal Skin no rashes or lesions noted Wounds: wounds noted Neuro oriented x3, CN's II-XII intact bilaterally, moves all extremities and no focal motor deficits Speech: speech normal Psych mental status grossly normal Appearance: grossly normal Attitude: calm and engaged Activity / Motor Behavior: appropriate eye contact Speech: normal speech Mood & Affect: euthymic mood Assessment & Plan Assessment/Plan (1) Peripheral vascular occlusive disease: PLAN: She is POD#2 from L fem endart, L fem-peroneal bypass with cadaver graft, and left sartorius flap. Vascular exam is improved and satisfactory. Incision sites are satisfactory, prevena vac dressing is maintaining good seal. Her Hgb did drift downward; no signs of active bleeding and no hematoma at the incision sites by exam. Discussed with Dr. Merchant; will discontinue low-dose heparin drip at this time, continue ASA and Plavix, Dr. Merchant has ordered 1 unit PRBC. Will start lovenox for DVT prophylaxis. From surgical perspective, ready for discharge when otherwise medically stable per primary team. Plan at this time is hopefully for patient to discharge to TCU. Will continue to follow. Charges/Coding Procedures Integumentary [id number]: [id number] Global Visit
--- NOTE | 2025-05-28 09:30 | CASEMGMT ---
Addendum entered by Javier May 05/28/25 09:43: Zee from TCU states that they can likely accept but are unsure of bed availability. Zee reports that she is not 100% sure if she will have a bed tomorrow, but at the latest it would be Tuesday 05/01. Dr. Merchant updated. RN CM to the pt room at this time. Pt states that she is agreeable to this plan and prefers TCU vs a community SNF. Pt denies further questions or concerns now. Original Note: Per ICU rounds, pt will likely be medically ready for DC tomorrow. Referral sent to Zee (TCU office service coordinator) at this time. CM to follow.
--- NOTE | 2025-05-28 11:57 | CHAPLAIN ---
Type of Pastoral Visit _x__ Initial Visit ___ Follow-up Visit ___ On-call Visit ___ General Patient Visit ___ Spiritual Assessment ___ Family Conference ___ Bereavement ___ Rapid Response ___ Code Blue ___ Other (describe below) Pastoral Care Referral From _x__ Patient ___ Family ___ Nurse ___ Physician ___ Pier Worker ___ Extrusion Press Adjuster ___ Other (describe below) Sacrament/Intervention _x__ Active listening ___ Anointing ___ Mosque ___ Bereavement ___ Communion ___ Karla exploration ___ ___ Life review _x__ Prayer ___ Reconciliation ___ Sacrament of Sick _x__ Supportive presence ___ Wedding ___ Other (describe below) Pastoral Comments patient remembers this extension service advisor and gives updates on her health; pt presents with pessimistic spirit and is quick to point out the inabilities and weaknesses that she experiences; pt misses her cats; pt has a goal to go to TCU and is unsure if that will happen or exactly when; she has some anxiety about that and doesn't want to be sent home when she is so weak; pt is talkative and this extension service advisor attempts to ask her about what is positive and what helps; pt only refers to her cats; pt is accepting of presence and prayer
--- NOTE | 2025-05-28 15:10 | TREXTCAR_ITS ---
Diet Diet Order/Speech Therapy: INPATIENT Hospital Diet / Speech Therapy Order(s) 05/28/25 08:35 Carb [Diet: Carbohydrate Controlled] Dietary Modifications:: Consistent Carbohydrate Type of Dietary Supplement:: Davion Routine Orders/Code Status Enema Frequency: Daily PRN Routine Lab Work: - (Repeat CBC, BMP in 1 week.) Code Status: Full Code DC O2, CPAP, BIPAP needs Home O2 Discharge instructions: No Wound(s) left leg: Wound Type: Neuropathic/Diabetic Foot Ulcer right foot: Wound Type: Neuropathic/Diabetic Foot Ulcer LT groin: Wound Type: Surgical Incision right heel: Wound Type: Neuropathic/Diabetic Foot Ulcer Dressing Change: Adaptic left posterior lower leg: Wound Type: Neuropathic/Diabetic Foot Ulcer Dressing Change: Adaptic left heel: Wound Type: Neuropathic/Diabetic Foot Ulcer Dressing Change: Adaptic left medial ankle: Wound Type: Neuropathic/Diabetic Foot Ulcer Dressing Change: Adaptic left lateral foot: Wound Type: Neuropathic/Diabetic Foot Ulcer Dressing Change: Adaptic left medial lower leg: Wound Type: Neuropathic/Diabetic Foot Ulcer Dressing Change: dry dressing Suggestions for Active Care Change Position every (hours): 2 Hours to sit in a chair: 6 Times a day to sit in chair: 3 Therapies Weight Bearing: Weight bearing as tolerated (Patient can be weightbearing as tolerated in surgical shoes and walker.) Extremity Affected:: Bilateral Lower Physical Therapy: Eval and Treat Occupational Therapy: Eval and Treat Problem/Diagnosis (1) Fall: Status: Acute Code(s): W19.XXXA - Unspecified fall, initial encounter (2) Generalized weakness: Status: Acute Code(s): R53.1 - Weakness Allergies/Procedures Done in Hospital Allergies Sulfa (Sulfonamide Antibiotics) Allergy (Verified 05/22/25 11:05) Unknown doesn't remember/ allergy noted as a child Procedures: EKG and - (05/26/25 left femoral endarterectomy left fem-peroneal bypass with reversed GSV, cadaver left sartorius flap per Dr. Clement.) Type of Care/Length of Stay Estimated LOS: Convalescent Care Less Than 30 days Type of Care Needed: Skilled Rehab Potential: Good Prognosis: Good Additional Orders/Day of Discharge Day of Discharge: 05/29/25 Dietary and Speech Recommendations Dietitian Recommendations/Changes: Will order Davion w/ breakfast and lunch for wound healing Continue Cardiac / Consistent CHO diet as ordered Discharge Plan Admission Admit Date/Time: 05/25/25 11:46 Primary Reason for Your Visit: Adult FTT, BL LE Diabetic wounds (recent MRSA infected wound), PAD Attending Provider: Maddie Merchant Primary Care Provider: Rishi Vasquez Consulting Providers: Wilberto Suazo; Michaela Joshua; Patel Irene; Russell Clement Instructions Additional Instructions / Restrictions: PODIATRY BILATERAL LOWER EXTREMITY CARE DISCHARGE AND FOLLOW-UP INSTRUCTIONS: --Dressing change orders to the bilateral extremity: 1. Remove all dressing down to the amniotic skin graft and leave the skin graft intact with jacob. 2. Cover the skin graft with Adaptic, 4 x 4's, light Kerlix wrap, underlying cast padding and Marino wrap's with 20% compression from sulcus of toes to the mid calf to the bilateral lower extremity. 3. Please change bilateral lower extremity dressing every 3 days. 4. Please offload left lower extremity with Multi-Podus boot. --Weightbearing status: Patient can be weightbearing as tolerated in surgical shoes and walker --Please follow-up with Dr. Irene in private office in 7 to 10 days post- discharge. VASCULAR SURGERY DISCHARGE AND FOLLOW-UP INSTRUCTIONS: --For L groin incision site, Prevena vacuum dressing is to remain in place for 7 days postoperatively (removal date 06/02) as long as it maintains good seal. If it is alarming, loses seal, or otherwise malfunctions then OK to remove sooner as needed. The incision itself is closed with dermabond and Prineo tape which will continue to protect the incision and will peel/flake away on its own with time. For the L lower leg incision, this is also closed with dermabond. OK for both to be open to air as long as there is no drainage. If there is drainage noted, then would apply dry gauze dressings and change daily. From vascular surgical perspective, OK for showers and soap/water can rinse over the incision sites but defer to podiatry regarding bathing restrictions. --With respect to activity, she is not to lift >20 lbs for 3 weeks but otherwise can proceed with activity as tolerated. --Please continue ASA 81mg daily and Plavix 75mg daily. --Please follow-up in vascular surgery office in 2 weeks. Discharge Orders/Prescriptions Prescriptions: New menthol-zinc oxide [Calmoseptine] 0.44-20.6 % Ointment 1 applic topical BID Qty: 0 0RF Protocol: *Topical Application Instructions APPLICATION INSTRUCTIONS: groin gabapentin (bulk) 100 % Powder 2 ea topical BID Qty: 0 0RF oxycodone 5 mg Tablet 5 mg PO Q4H PRN PRN (Reason: Pain Score 4-10) Qty: 0 0RF Continued calcium carbonate [Calcium 600] 600 mg calcium (1,500 mg) tablet 600 mg PO DAILY nystatin [Nyamyc] 100,000 unit/gram powder 1 applic topical BID PRN (Reason: rash) Protocol: *Topical Application Instructions APPLICATION INSTRUCTIONS: apply to abdominal folds, under breasts aspirin 81 MG tablet 81 mg PO QHS multivitamin with folic acid 1 TABLET tablet 1 tab PO DAILY Patient Comments: vitamin supplement ascorbic acid (vitamin C) 500 mg tablet 1,000 mg PO LUNCH Patient Comments: supplement omega-3 fatty acids-fish oil 1 EACH capsule 1 ea PO DAILY Patient Comments: supplement ferrous sulfate 325 MG tablet 325 mg PO DAILY linezolid 600 mg Tablet 600 mg PO BID Qty: 21 0RF Rx Instructions: STOP DATE 06/01/25 AFTER AM DOSE. pregabalin 100 mg capsule 100 mg PO TID Acidophilus Capsule 600 mg PO QDAY acetaminophen 650 mg tablet extended release 650 mg PO Q12H PRN (Reason: pain) glimepiride 2 mg tablet 2 mg PO BID clopidogrel 75 mg tablet 75 mg PO DAILY Qty: 90 3RF Patient Comments: ask about stopping simvastatin 20 mg tablet 20 mg PO QHS Qty: 30 11RF amlodipine 5 mg tablet 5 mg PO DAILY Qty: 90 3RF metoprolol succinate 25 mg tablet extended release 24 hr 12.5 mg PO DAILY Qty: 45 3RF Discontinued Santyl 250 unit/gram Ointment 1 applic topical DAILY Qty: 15 0RF Protocol: *Topical Application Instructions APPLICATION INSTRUCTIONS: apply nickel thick layer to left posterior lower leg, left medial ankle, and left heel Rx Instructions: Apply to wound as instructed Referrals / Follow Up: Russell Clement MD [Med Staff - Active Staff] - (Follow-up with Vascular surgery in 2 weeks.) Rishi Vasquez DO [Primary Care Provider] - (Follow-up within 1-2 days of SNF discharge.) Patel Irene DPM [Med Staff - Active Staff] - See Referral Note (Patient is a follow-up in private office 7 to 10 days post hospital discharge.) Disposition Disposition (needs filled in before D/C Order can be placed): Senior Living Facility
[2025-05-28 15:27] LABS: Hematocrit 29.9 % (37-47); Hemoglobin 9.6 g/dL (12.0-15.0)
[2025-05-28 16:05] LABS: Anion Gap 11 (5-15); BUN 41 mg/dL (4-19); BUN/Creat Ratio 36.7 RATIO (10-20); Calcium,Total 8.8 mg/dL (7.6-11.0); Carbon Dioxide 21.3 mmol/L (21.0-32.0); Chloride 104 mmol/L (98-108); Estimated Creatinine Clearance 45.96 ml/min (50-250); Glucose 318 mg/dL (70-99); Potassium 5.1 mmol/L (3.3-5.1)
[2025-05-28] MEDS: Aspirin E.C. 81 MG Tablet PO (21:24)
[2025-05-29 03:50] VITALS: BP 131/54; PULSE 69; RESP 16; TEMP 37.1; O2SAT 95
[2025-05-29 05:34] VITALS: BMI 25.6
[2025-05-29 05:46] LABS: Hematocrit 25.9 % (37-47); Hemoglobin 8.4 g/dL (12.0-15.0); Immature Granulocytes Count 0.150 X10^3/uL (0.0-0.0); Mean Corp Hgb Conc 32.4 g/dL (32-36); Mean Corpuscular Volume 90.2 fL (81-99); Mean Platelet Vol. 9.8 fl (6.2-12.0); NRBC Flagged by Analyzer 0.2 % (0-5); Platelet Count 163 K/mm3 (150-450); RBC Distribution Width CV 16.0 % (11.6-14.6); RBC Distribution Width SD 52.9 fl (35.1-43.9); Red Blood Count 2.87 M/mm3 (4.2-5.4); White Blood Count 9.1 K/mm3 (4.4-11.0)
[2025-05-29 06:33] LABS: AST(SGOT) 29 U/L (<=31); Alanine Aminotransfer ALT/SGPT 17 U/L (<=34); Albumin, Serum 2.2 g/dL (3.4-4.8); Alkaline Phosphatase 49 U/L (35-104); Anion Gap 9 (5-15); BUN 52 mg/dL (4-19); BUN/Creat Ratio 43.9 RATIO (10-20); Calcium,Total 8.9 mg/dL (7.6-11.0); Carbon Dioxide 20.3 mmol/L (21.0-32.0); Chloride 106 mmol/L (98-108); Estimated Creatinine Clearance 42.87 ml/min (50-250); Globulin 2.9 g/dL (2.2-4.2); Glucose 197 mg/dL (70-99); Potassium 4.6 mmol/L (3.3-5.1)
--- NOTE | 2025-05-29 06:59 | PCM.PN.HOSP ---
Reason for Visit Reason for Visit: Diagnoses Type 2 diabetes mellitus with foot ulcer (05/25/25) Atherosclerosis of [place] arteries of right leg with ulceration of heel and midfoot (05/25/25) Atherosclerosis of [place] arteries of left leg with ulceration of heel and midfoot (05/25/25) Other specified peripheral vascular diseases (05/25/25) Peripheral vascular disease, unspecified (05/25/25) Non-pressure chronic ulcer of other part of unspecified foot with unspecified severity (05/25/25) Non-pressure chronic ulcer of other part of right foot with fat layer exposed (05/25/25) 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 foot with fat layer exposed (05/25/25) Weakness (05/25/25) Unspecified fall, initial encounter (05/25/25) Subjective Subjective Patient with no acute events overnight per self and per nursing report. Patient's dressing being changed by wound care this morning with no concerns. She does state still some discomfort to the left It is primarily at the incision dulce. Patient remains amenable to transition to TCU once bed available and from discussion with case management/social work may not happen until Sunday but still awaiting precertification. Patient denies fevers, chills, nausea, emesis, abdominal pain, chest pain or dyspnea. Objective Data Objective Data Vital Signs: Vital Signs Temp Pulse Resp BP Pulse Ox O2 Del Method O2 Flow Rate 98.7 F 69 16 131/54 H 95 Room Air 2 05/29/25 03:50 05/29/25 03:50 05/29/25 03:50 05/29/25 03:50 05/29/25 03:50 05/29/25 03:50 05/28/25 11:58 Oxygen Flow Rate (L/min) 2 Oxygen Delivery Method Room Air Weight: 159 lb 6.307 oz Body Mass Index (BMI) 25.6 Intake & Output: Intake and Output for Last 24 Hours 05/27/25 05/28/25 05/29/25 23:59 23:59 23:59 Intake Total 377.34 / 377.34 868.17 / 1018.17 250 / 250 Output Total 950 / 1200 800 / 800 300 / 300 Balance -572.66 / -822.66 68.17 / 218.17 -50 / -50 Lab / Micro Data 05/29/25 05:15 05/29/25 05:15 Labs: Laboratory Results - last 24 hr 05/26/25 04:52: Blood Type A POSITIVE, Antibody Screen NEGATIVE, Crossmatch See Detail 05/28/25 07:47: POC Glucose 184 H 05/28/25 11:24: POC Glucose 186 H 05/28/25 15:03: Hgb 9.6 L, Hct 29.9 L, Sodium 136, Potassium 5.1, Chloride 104, Carbon Dioxide 21.3, Anion Gap 11, BUN 41 H, Creatinine 1.11, Estim Creat Clear Calc 45.96 L, Est GFR (MDRD) Non-Af 52 L, BUN/Creatinine Ratio 36.7 H, Glucose 318 H, Calcium 8.8 05/28/25 16:13: POC Glucose 286 H 05/28/25 21:43: POC Glucose 273 H 05/29/25 05:15: WBC 9.1, RBC 2.87 L, Hgb 8.4 L, Hct 25.9 L, MCV 90.2, MCH 29.3, MCHC 32.4, RDW Std Deviation 52.9 H, RDW Coeff of Jorgito 16.0 H, Plt Count 163, MPV 9.8, Immature Gran % (Auto) 1.700 H, Neut % (Auto) 80.6 H, Lymph % (Auto) 11.7 L, [place] % (Auto) 4.3, Eos % (Auto) 1.3, Baso % (Auto) 0.4, Absolute Neuts (auto) 7.3, Absolute Lymphs (auto) 1.06, Nucleated RBC % 0.2, Sodium 136, Potassium 4.6, Chloride 106, Carbon Dioxide 20.3 L, Anion Gap 9, BUN 52 H, Creatinine 1.19, Estim Creat Clear Calc 42.87 L, Est GFR (MDRD) Non-Af 48 L, BUN/Creatinine Ratio 43.9 H, Glucose 197 H, Calcium 8.9, Total Bilirubin 0.42, AST 29, ALT 17, Alkaline Phosphatase 49, Total Protein 5.1 L, Albumin 2.2 L, Globulin 2.9, Albumin/Globulin Ratio 0.8 L Micro: Microbiology 05/26/25 15:52 Urine Catheter - Catheter Urine Culture - Preliminary Yeast Like Organism Physical Exam Narrative Physical Examination: General: Awake, alert, oriented x 3 and cooperative, seated upright in the NH bedside chair, recent dressing changes, no complaints aside from still discomfort to the left calf at the region of the incision but otherwise feeling well. Skin: Normal color, normal turgor, no icterus, no cyanosis except for occasional stage ecchymoses, abrasion, bilateral lower extremity dressings in place, recent bilateral lower extremity dressing changes with no drainage noted, VAC in place. HEENT: AT/NC, EOMI, PERRLA, MMM. Lungs: Mildly diminished, greater bases, proper effort, no rales, ronchi or wheezing. Heart: Regular rate with regular rhythm; no gallop, rub audible. Abdomen: Soft, NTTP, ND, normal BS. Extremities: No cyanosis, no clubbing, see skin, bilateral lower extremity dressings, see skin. Neurological: Patient awake, alert, oriented as noted, cognitive function intact; pupils equally reactive to light and accommodation, cranial nerves grossly normal, moving all 4 extremities, mildly tremulous, no obvious focal deficits, strength improving, moderately to severely globally decreased given recent intervention. Psychiatric: Affect appears normal, no acute evidence of depressive or anxiety feelings. Assessment & Plan Assessment/Plan (1) Acute osteomyelitis of left foot: PLAN: Plan The patient is a 75 y/o F w/ PMHx: CAD, PAD s/p peripheral angioplasty, Diabetes mellitus type II with Chronic neuropathy, Anxiety and Depression, HTN, HLD, Former tobacco use, Chronic normocytic anemia/Fe deficiency anemia, CKD stage III unclear subtype per GFR trending, chronic bilateral lower extremity diabetic ulcerations/wounds following with Dr. Irene status post recent 05/20/2025 surgical intervention with discharge 05/21/2025 unfortunately with refusal for skilled placement as there was not a TCU bed available at that time who then returned 05/22/2025 with generalized weakness and mechanical fall while attempting to transfer unable to get herself up prompting return to the hospital for evaluation and care. #1. Adult FTT, Debility with patient deferral of recommended SNF placement following recent discharge w/ return to home with mechanical fall complicated by Recent bilateral lower extremity diabetic wounds with significantly MRSA infected left lower diabetic wound with associated MRSA bacteremia: Status post 05/20/2025 incision of the bone cortex of the left ankle, surgical skin grafting to the left leg, surgical skin grafting to the left foot, application of graft substitute, wound culture from OR with MRSA, discharged on linezolid, will continue antibiotic regimen with completion date 06/01/2025, continue podiatry involvement as well as continued infectious disease involvement and vascular surgery as noted, most recent podiatry evaluation 05/24/2025 with noted plan for continued Adaptic placement to the graft area with overlapping dry sterile dressing and single layer of Man compression bandage with plan for continued change every 3 days. Podiatry noted dressings may be removed if needed temporarily however replaced immediately following as noted. Patient cleared by vascular surgery and podiatry with plan for transition to TCU possibly 05/29/2025 however may not have bed available until Sunday, only awaiting precertification at this time. #2. Peripheral vascular disease, PAD with significant bilateral lower extremity wounds and ulceration: Patient following with Dr. Clement, most recent imaging noted during previous presentation also with CTA demonstrating significant calcific femoral disease bilaterally with angiogram evaluation of the tibial vessels. 05/26/25 left femoral endarterectomy, left femoral peroneal bypass with reversed GSV, cadaver left sartorius flap per Dr. Clement. Patient remains in the ICU with plan for transition out per vascular surgery preference 05/28/2025. Continue aspirin, Plavix, statin, hypertensive regimen however will defer to vascular surgery for adjustments or if temporary hold as needed given recent intervention if any bleeding concerns arise. 05/26/2025 postoperative hemoglobin 9.6, 05/27/25 AM hemoglobin 8.5-> 05/28/25 hemoglobin 7.3, given recent vascular surgery to be cautious we will administer 1 unit PRBC and plan repeat hemoglobin approximately 1 hour following completion. Low-dose heparin discontinued in agreement with vascular surgery. Patient cleared by vascular surgery, wound care dressing changes to bilateral lower extremity today noted to be well-appearing, VAC still in place, will plan transition to TCU with ongoing distal extremity care as well as left groin care per vascular surgery and podiatry previous recommendations. #3. Acute GP Organism Complicated Urinary Tract Infection, RULED OUT (UCx without marked growth): Null catheter placed in the OR with mildly concerning output, urinalysis and urine culture have requested with UCx w/ preliminary GP organism however eventually resulted without any marked growth, Null catheter discontinued and antibiotic therapy de-escalated off. #4. Chronic Kidney Disease Stage III, unclear subtype or GFR trending: Admission BUN/Cr 56/1.22, GFR 47, baseline renal function primarily 1.3-1.5 but did have recent presentation with acute kidney injury with creatinine up to 1.96, resolved currently and had felt at that time to be secondary to ATN, repeat BMP in AM. 05/27/2025 BUN/creatinine 36/1.09, GFR 54-> 05/29/25 BUN/creatinine 52/1.19, GFR 48. #5. Diabetes mellitus type II complicated by #1 with chronic diabetic wounds and chronic diabetic neuropathy: Hold oral home regimen, maintain on ADA diet, awaiting vascular surgery wanted percent confirmation of intervention 05/26/2025, will allow n.p.o. status per their timeline, will maintain on accu checks w/ ISS, continue home pregabalin regimen. #6. Hypertension: Continue home regimen including metoprolol, amlodipine with hold parameters as needed, PRN hydralazine. #7. Hyperlipidemia: Continue home statin therapy. #8. Chronic normocytic anemia/iron deficiency anemia: Admission hemoglobin 9.5, MCV 90.2, baseline hemoglobin has vacillated but appears primarily 9 range, continue to closely trend CBC, if dropping further will investigate. Will continue iron supplementation. 05/27/25 hemoglobin 8.5-> 05/28/25 hemoglobin 7.3, administered 1 unit PRBC. 05/29/2025 hemoglobin 8.4. #9. Anxiety and depression: Noted history in the chart, not on regimen per current list, continue to monitor and follow-up outpatient as previously arranged. #10. Former tobacco use: Encourage continued tobacco cessation. #11. DVT prophylaxis: Heparin chemoprophylactic dosing. #12. CODE status: Patient VICTOR MANUEL is her sister. Full Code status. Charges/Coding Visit Charges Inpatient E&M: 13803 Subs Hosp L2
[2025-05-29] MEDS: Lactobacillis Acidophilus 1 CAP PO (07:59)
[2025-05-29 08:00] VITALS: BP 98/59; PULSE 74; RESP 16; TEMP 36.4; O2SAT 99
[2025-05-29] MEDS: Neuropathy Pain Cream Compound 60 CLICK TUBE TOPICAL ×2 (08:00→22:25)
[2025-05-29 09:32] VITALS: BP 102/60
--- NOTE | 2025-05-29 09:47 | CASEMGMT ---
Addendum entered by Javier May 05/29/25 10:56: [facility] from [facility] states that they can now admit once precert has been obtained. Precert has been started by Zee today. CM to follow. Original Note: [facility] from [facility] states that the pt will likely not have a bed until Sunday and that she plans to initiate precert today. CM to follow.
[2025-05-29 14:00] VITALS: BP 112/57; PULSE 73; RESP 16; TEMP 36.8; O2SAT 95
--- NOTE | 2025-05-29 15:08 | CASEMGMT ---
At this time, Zee states that precert is still pending and that she will contact the studio operations engineer in charge if precert is obtained over the weekend. Green sheet placed on chart.
--- NOTE | 2025-05-29 16:50 | PN.SURG_ITS ---
Subjective Subjective I saw Gely sitting up in the bedside chair this afternoon. She reports to feeling well overall, she has some pain at the incision sites in the groin and the calf. She has no other complaints. She states she walked to the restroom and felt that she did better with that today compared to yesterday. Objective Data Objective Data Vital Signs: Vital Signs Temp Pulse Resp BP Pulse Ox O2 Del Method O2 Flow Rate 98.2 F 73 16 112/57 L 95 Room Air 2 05/29/25 14:00 05/29/25 14:00 05/29/25 14:00 05/29/25 14:00 05/29/25 14:00 05/29/25 14:00 05/28/25 11:58 Oxygen Flow Rate (L/min) 2 Oxygen Delivery Method Room Air Weight: 159 lb 6.307 oz Body Mass Index (BMI) 25.6 Intake & Output: Intake and Output for Last 24 Hours 05/27/25 05/28/25 05/29/25 23:59 23:59 23:59 Intake Total 377.34 / 377.34 868.17 / 1018.17 550 / 550 Output Total 950 / 1200 800 / 800 300 / 300 Balance -572.66 / -822.66 68.17 / 218.17 250 / 250 Lab / Micro Data 05/29/25 05:15 05/29/25 05:15 Labs: Laboratory Results - last 24 hr 05/28/25 21:43: POC Glucose 273 H 05/29/25 05:15: WBC 9.1, RBC 2.87 L, Hgb 8.4 L, Hct 25.9 L, MCV 90.2, MCH 29.3, MCHC 32.4, RDW Std Deviation 52.9 H, RDW Coeff of [place] 16.0 H, Plt Count 163, MPV 9.8, Immature Gran % (Auto) 1.700 H, Neut % (Auto) 80.6 H, Lymph % (Auto) 11.7 L , [place] % (Auto) 4.3, Eos % (Auto) 1.3, Baso % (Auto) 0.4, Absolute Neuts (auto) 7.3, Absolute Lymphs (auto) 1.06, Nucleated RBC % 0.2, Sodium 136, Potassium 4.6, Chloride 106, Carbon Dioxide 20.3 L, Anion Gap 9, BUN 52 H, Creatinine 1.19, Estim Creat Clear Calc 42.87 L, Est GFR (MDRD) Non-Af 48 L, BUN/Creatinine Ratio 43.9 H, Glucose 197 H, Calcium 8.9, Total Bilirubin 0.42, AST 29, ALT 17, Alkaline Phosphatase 49, Total Protein 5.1 L, Albumin 2.2 L, Globulin 2.9, A lbumin/Globulin Ratio 0.8 L 05/29/25 06:43: POC Glucose 198 H 05/29/25 11:05: POC Glucose 230 H 05/29/25 16:15: POC Glucose 287 H Micro: Microbiology 05/26/25 15:52 Urine Catheter - Catheter Urine Culture - Final Presumptive C albicans Physical Exam Const alert and oriented x3 General Appearance: cooperative HEENT normocephalic, head/scalp atraumatic, hearing grossly normal bilaterally, external ears normal and external nose normal Eyes EOMs intact bilaterally General Eye: normal appearance of both eyes Neck General: normal visual inspection and trachea midline Resp normal respiratory effort, normal air movement, no retractions and no use of accessory muscles Effort and Inspection: able to speak in complete sentences; Negative for labored, grunting or stridor Cardio regular rate and regular rhythm Extremity Extremity Narrative: L groin incision site with Prevena vac dressing intact, maintaining good seal. Soft to palpation, no apparent hematoma. L leg incision site with skin glue intact, no dehiscence/edema/erythema/drainage L DP and PT with strong biphasic doppler signal LLE with mild edema Skin no rashes or lesions noted Wounds: wounds noted Neuro oriented x3, CN's II-XII intact bilaterally, moves all extremities and no focal motor deficits Speech: speech normal Psych mental status grossly normal Appearance: grossly normal Attitude: calm and engaged Activity / Motor Behavior: appropriate eye contact Speech: normal speech Mood & Affect: euthymic mood Assessment & Plan Assessment/Plan (1) Peripheral vascular occlusive disease: PLAN: She is POD#3 from L fem endart, L fem-peroneal bypass with cadaver graft, and left sartorius flap. Vascular exam is improved and satisfactory. Incision sites are satisfactory, prevena vac dressing is maintaining good seal. Continue ASA and Plavix. LLE edema is consistent with reperfusion, recommend leg elevation at times of rest. Plan is for d/c to TCU pending precert. Charges/Coding Procedures Integumentary [id number]: [id number] Global Visit
[2025-05-29] MEDS: Aspirin E.C. 81 MG Tablet PO (22:26)
[2025-05-29 22:37] VITALS: BP 106/81; PULSE 74; RESP 16; TEMP 36.6; O2SAT 99
[2025-05-30 04:06] VITALS: BMI 25.6
[2025-05-30 04:55] VITALS: BP 119/46; PULSE 68; RESP 16; TEMP 36.6; O2SAT 98
[2025-05-30 06:08] LABS: Hematocrit 24.5 % (37-47); Hemoglobin 8.0 g/dL (12.0-15.0); Immature Granulocytes Count 0.080 X10^3/uL (0.0-0.0); Mean Corp Hgb Conc 32.7 g/dL (32-36); Mean Corpuscular Volume 89.4 fL (81-99); Mean Platelet Vol. 10.2 fl (6.2-12.0); NRBC Flagged by Analyzer 0 % (0-5); Platelet Count 160 K/mm3 (150-450); RBC Distribution Width CV 15.6 % (11.6-14.6); RBC Distribution Width SD 50.7 fl (35.1-43.9); Red Blood Count 2.74 M/mm3 (4.2-5.4); White Blood Count 6.4 K/mm3 (4.4-11.0)
[2025-05-30 06:39] LABS: AST(SGOT) 21 U/L (<=31); Alanine Aminotransfer ALT/SGPT 15 U/L (<=34); Albumin, Serum 2.2 g/dL (3.4-4.8); Alkaline Phosphatase 49 U/L (35-104); Anion Gap 11 (5-15); BUN 66 mg/dL (4-19); BUN/Creat Ratio 50.3 RATIO (10-20); Calcium,Total 8.9 mg/dL (7.6-11.0); Carbon Dioxide 20.6 mmol/L (21.0-32.0); Chloride 102 mmol/L (98-108); Estimated Creatinine Clearance 38.97 ml/min (50-250); Globulin 2.8 g/dL (2.2-4.2); Glucose 171 mg/dL (70-99); Potassium 4.4 mmol/L (3.3-5.1)
--- NOTE | 2025-05-30 07:12 | PCM.PN.HOSP ---
Reason for Visit Reason for Visit: Diagnoses Type 2 diabetes mellitus with foot ulcer (05/25/25) Atherosclerosis of [place] arteries of right leg with ulceration of heel and midfoot (05/25/25) Atherosclerosis of [place] arteries of left leg with ulceration of heel and midfoot (05/25/25) Other specified peripheral vascular diseases (05/25/25) Peripheral vascular disease, unspecified (05/25/25) Non-pressure chronic ulcer of other part of unspecified foot with unspecified severity (05/25/25) Non-pressure chronic ulcer of other part of right foot with fat layer exposed (05/25/25) 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 foot with fat layer exposed (05/25/25) Other acute osteomyelitis, left ankle and foot (05/25/25) Weakness (05/25/25) Unspecified fall, initial encounter (05/25/25) Subjective Subjective Patient with no acute events overnight per self and per nursing report. Only complaint is some discomfort to her tailbone but she does report that she has been sitting frequently and is attempting to offload. Patient understand that likely TCU bed will not be available until 05/31/2025. Patient notes discomfort to the left lower leg is continuing to improve. Patient denies fevers, chills, nausea, emesis, abdominal pain, chest pain or dyspnea. Objective Data Objective Data Vital Signs: Vital Signs Temp Pulse Resp BP Pulse Ox O2 Del Method O2 Flow Rate 97.8 F 68 16 119/46 L 98 Room Air 2 05/30/25 04:55 05/30/25 04:55 05/30/25 04:55 05/30/25 04:55 05/30/25 04:55 05/30/25 04:55 05/28/25 11:58 Oxygen Flow Rate (L/min) 2 Oxygen Delivery Method Room Air Weight: 159 lb 9.835 oz Body Mass Index (BMI) 25.6 Intake & Output: Intake and Output for Last 24 Hours 05/28/25 05/29/25 05/30/25 23:59 23:59 23:59 Intake Total 868.17 / 1018.17 1050 / 1250 350 / 350 Output Total 800 / 800 300 / 300 600 / 600 Balance 68.17 / 218.17 750 / 950 -250 / -250 Lab / Micro Data 05/30/25 04:45 05/30/25 04:45 Labs: Laboratory Results - last 24 hr 05/29/25 06:43: POC Glucose 198 H 05/29/25 11:05: POC Glucose 230 H 05/29/25 16:15: POC Glucose 287 H 05/29/25 22:35: POC Glucose 234 H 05/30/25 04:45: WBC 6.4, RBC 2.74 L, Hgb 8.0 L, Hct 24.5 L, MCV 89.4, MCH 29.2, MCHC 32.7, RDW Std Deviation 50.7 H, RDW Coeff of [place] 15.6 H, Plt Count 160, MPV 10.2, Immature Gran % (Auto) 1.300 H, Neut % (Auto) 71.2 H, Lymph % (Auto) 18.9 L, [place] % (Auto) 5.5, Eos % (Auto) 2.5, Baso % (Auto) 0.6, Absolute Neuts (auto) 4.6, Absolute Lymphs (auto) 1.21, Nucleated RBC % 0, Sodium 134, Potassium 4.4, Chloride 102, Carbon Dioxide 20.6 L, Anion Gap 11, BUN 66 H, Creatinine 1.31 H, Estim Creat Clear Calc 38.97 L, Est GFR (MDRD) Non-Af 43 L, BUN/Creatinine Ratio 50.3 H, Glucose 171 H, Calcium 8.9, Total Bilirubin 0.36, AST 21, ALT 15, Alkaline Phosphatase 49, Total Protein 5.0 L, Albumin 2.2 L, Globulin 2.8, Albumin/Globulin Ratio 0.8 L Micro: Microbiology 05/26/25 15:52 Urine Catheter - Catheter Urine Culture - Final Presumptive C albicans Physical Exam Narrative Physical Examination: General: Awake, alert, oriented x 3 and cooperative, seated upright in the [place] bedside chair, feels well this morning, no marked pain to the left lower extremity, improving. Skin: Normal color, normal turgor, no icterus, no cyanosis except for occasional stage ecchymoses, abrasion, bilateral lower extremity dressings in place, recent bilateral lower extremity dressing changes with no drainage noted, VAC in place. HEENT: AT/NC, EOMI, PERRLA, MMM. Lungs: Mildly diminished, greater bases, appropriate effort, no rales, ronchi or wheezing. Heart: Regular rate with regular rhythm; no gallop, rub audible. Abdomen: Soft, NTTP, ND, normal BS. Extremities: No cyanosis, no clubbing, see skin, bilateral lower extremity dressings, see skin. Neurological: Patient awake, alert, oriented as noted, cognitive function intact; pupils equally reactive to light and accommodation, cranial nerves grossly normal, moving all 4 extremities, mildly tremulous, no obvious focal deficits, strength improving, moderately to severely globally decreased given recent intervention. Psychiatric: Affect appears mildly fatigued otherwise normal, no acute evidence of depressive or anxiety feelings. Assessment & Plan Assessment/Plan (1) Acute osteomyelitis of left foot: PLAN: Plan The patient is a 75 y/o F w/ PMHx: CAD, PAD s/p peripheral angioplasty, Diabetes mellitus type II with Chronic neuropathy, Anxiety and Depression, HTN, HLD, Former tobacco use, Chronic normocytic anemia/Fe deficiency anemia, CKD stage III unclear subtype per GFR trending, chronic bilateral lower extremity diabetic ulcerations/wounds following with Dr. Irene status post recent 05/20/2025 surgical intervention with discharge 05/21/2025 unfortunately with refusal for skilled placement as there was not a TCU bed available at that time who then returned 05/22/2025 with generalized weakness and mechanical fall while attempting to transfer unable to get herself up prompting return to the hospital for evaluation and care. #1. Adult FTT, Debility with patient deferral of recommended SNF placement following recent discharge w/ return to home with mechanical fall complicated by Recent bilateral lower extremity diabetic wounds with significantly MRSA infected left lower diabetic wound with associated MRSA bacteremia: Status post 05/20/2025 incision of the bone cortex of the left ankle, surgical skin grafting to the left leg, surgical skin grafting to the left foot, application of graft substitute, wound culture from OR with MRSA, discharged on linezolid, will continue antibiotic regimen with completion date 06/01/2025, continue podiatry involvement as well as continued infectious disease involvement and vascular surgery as noted, most recent podiatry evaluation 05/24/2025 with noted plan for continued Adaptic placement to the graft area with overlapping dry sterile dressing and single layer of Man compression bandage with plan for continued change every 3 days. Podiatry noted dressings may be removed if needed temporarily however replaced immediately following as noted. Patient cleared by vascular surgery and podiatry with plan for transition to TCU, from discussion hopefully 05/31/2025 precertification and bed availability. #2. Peripheral vascular disease, PAD with significant bilateral lower extremity wounds and ulceration: Patient following with Dr. Clement, most recent imaging noted during previous presentation also with CTA demonstrating significant calcific femoral disease bilaterally with angiogram evaluation of the tibial vessels. 05/26/25 left femoral endarterectomy, left femoral peroneal bypass with reversed GSV, cadaver left sartorius flap per Dr. Clement. Patient remains in the ICU with plan for transition out per vascular surgery preference 05/28/2025. Continue aspirin, Plavix, statin, hypertensive regimen however will defer to vascular surgery for adjustments or if temporary hold as needed given recent intervention if any bleeding concerns arise. 05/26/2025 postoperative hemoglobin 9.6, 05/27/25 AM hemoglobin 8.5-> 05/28/25 hemoglobin 7.3, given recent vascular surgery to be cautious we will administer 1 unit PRBC and plan repeat hemoglobin approximately 1 hour following completion. Low-dose heparin discontinued in agreement with vascular surgery. Patient cleared by vascular surgery, wound care dressing changes to bilateral lower extremity today noted to be well-appearing, VAC still in place, will plan transition to TCU possibly 05/31/2025 with ongoing distal extremity care as well as left groin care per vascular surgery and podiatry previous recommendations. #3. Acute GP Organism Complicated Urinary Tract Infection, RULED OUT (UCx without marked growth): Null catheter placed in the OR with mildly concerning output, urinalysis and urine culture with UCx w/ preliminary GP organism however eventually resulted without any marked growth, Null catheter discontinued and antibiotic therapy de-escalated off. #4. Chronic Kidney Disease Stage III, unclear subtype or GFR trending: Admission BUN/Cr 56/1.22, GFR 47, baseline renal function primarily 1.3-1.5 but did have recent presentation with acute kidney injury with creatinine up to 1.96, resolved currently and had felt at that time to be secondary to ATN, repeat BMP in AM. 05/29/2025 BUN/creatinine 66/1.31, GFR 43. #5. Diabetes mellitus type II complicated by #1 with chronic diabetic wounds and chronic diabetic neuropathy: Hold oral home regimen, maintain on ADA diet, awaiting vascular surgery wanted percent confirmation of intervention 05/26/2025, ADA diet, will maintain on accu checks w/ ISS, continue home pregabalin regimen. #6. Hypertension: Continue home regimen including metoprolol, amlodipine with hold parameters as needed, PRN hydralazine. #7. Hyperlipidemia: Continue home statin therapy. #8. Chronic normocytic anemia/iron deficiency anemia: Admission hemoglobin 9.5, MCV 90.2, baseline hemoglobin has vacillated but appears primarily 9 range, continue to closely trend CBC, if dropping further will investigate. Will continue iron supplementation. 05/27/25 hemoglobin 8.5-> 05/28/25 hemoglobin 7.3, administered 1 unit PRBC. 05/30/2025 hemoglobin 8.0. #9. Anxiety and depression: Noted history in the chart, not on regimen per current list, continue to monitor and follow-up outpatient as previously arranged. #10. Former tobacco use: Encourage continued tobacco cessation. #11. DVT prophylaxis: Heparin chemoprophylactic dosing. #12. CODE status: Patient VICTOR MANUEL is her sister. Full Code status. Charges/Coding Visit Charges Inpatient E&M: 55716 Subs Hosp L2
[2025-05-30] MEDS: Lactobacillis Acidophilus 1 CAP PO (08:54)
[2025-05-30 08:56] VITALS: PULSE 86
[2025-05-30] MEDS: Neuropathy Pain Cream Compound 60 CLICK TUBE TOPICAL ×2 (08:56→21:06)
[2025-05-30] MEDS: Metoprolol(XL)Succ 25 MG Tablet 12.5 MG PO (08:56)
[2025-05-30 09:05] VITALS: PULSE 80; RESP 18; O2SAT 95
[2025-05-30 10:00] VITALS: BP 110/62; PULSE 82; RESP 18; TEMP 36.6; O2SAT 100
[2025-05-30 17:00] VITALS: BP 114/64; PULSE 88; RESP 18; TEMP 36.7; O2SAT 100
[2025-05-30 20:54] VITALS: BP 113/43; PULSE 91; RESP 15; TEMP 37.1; O2SAT 96
[2025-05-30] MEDS: Aspirin E.C. 81 MG Tablet PO (21:06)
[2025-05-31 05:36] LABS: Hematocrit 24.8 % (37-47); Hemoglobin 8.3 g/dL (12.0-15.0); Immature Granulocytes Count 0.050 X10^3/uL (0.0-0.0); Mean Corp Hgb Conc 33.5 g/dL (32-36); Mean Corpuscular Volume 89.2 fL (81-99); Mean Platelet Vol. 10.3 fl (6.2-12.0); NRBC Flagged by Analyzer 0 % (0-5); Platelet Count 146 K/mm3 (150-450); RBC Distribution Width CV 15.1 % (11.6-14.6); RBC Distribution Width SD 49.4 fl (35.1-43.9); Red Blood Count 2.78 M/mm3 (4.2-5.4); White Blood Count 4.8 K/mm3 (4.4-11.0)
[2025-05-31 05:48] VITALS: BMI 25.7
[2025-05-31 06:01] VITALS: BP 134/59; PULSE 60; RESP 15; TEMP 36.6; O2SAT 99
[2025-05-31 06:14] LABS: AST(SGOT) 19 U/L (<=31); Alanine Aminotransfer ALT/SGPT 15 U/L (<=34); Albumin, Serum 2.3 g/dL (3.4-4.8); Alkaline Phosphatase 48 U/L (35-104); Anion Gap 9 (5-15); BUN 69 mg/dL (4-19); BUN/Creat Ratio 55.3 RATIO (10-20); Calcium,Total 9.0 mg/dL (7.6-11.0); Carbon Dioxide 21.6 mmol/L (21.0-32.0); Chloride 104 mmol/L (98-108); Estimated Creatinine Clearance 40.92 ml/min (50-250); Globulin 2.7 g/dL (2.2-4.2); Glucose 171 mg/dL (70-99); Potassium 4.6 mmol/L (3.3-5.1)
--- NOTE | 2025-05-31 07:09 | PN.HOSP_ITS ---
Reason for Visit Reason for Visit: Diagnoses Type 2 diabetes mellitus with foot ulcer (05/25/25) Atherosclerosis of [place] arteries of right leg with ulceration of heel and midfoot (05/25/25) Atherosclerosis of [place] arteries of left leg with ulceration of heel and midfoot (05/25/25) Other specified peripheral vascular diseases (05/25/25) Peripheral vascular disease, unspecified (05/25/25) Non-pressure chronic ulcer of other part of unspecified foot with unspecified severity (05/25/25) Non-pressure chronic ulcer of other part of right foot with fat layer exposed (05/25/25) 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 foot with fat layer exposed (05/25/25) Other acute osteomyelitis, left ankle and foot (05/25/25) Weakness (05/25/25) Unspecified fall, initial encounter (05/25/25) Subjective Subjective Patient with no acute events overnight per self and per nursing report. She notes still aching on her tailbone and is trying to offload quite a bit. Discussed possible discharge to TCU today versus potentially tomorrow however still awaiting precertification. Patient reports that her left calf still continues to improve. Patient denies fevers, chills, nausea, emesis, abdominal pain, chest pain or dyspnea. Objective Data Objective Data Vital Signs: Vital Signs Temp Pulse Resp BP Pulse Ox O2 Del Method O2 Flow Rate 97.9 F 60 15 134/59 H 99 Room Air 2 05/31/25 06:01 05/31/25 06:01 05/31/25 06:01 05/31/25 06:01 05/31/25 06:01 05/31/25 06:01 05/28/25 11:58 Oxygen Flow Rate (L/min) 2 Oxygen Delivery Method Room Air Weight: 160 lb 4.417 oz Body Mass Index (BMI) 25.7 Intake & Output: Intake and Output for Last 24 Hours 05/29/25 05/30/25 05/31/25 23:59 23:59 23:59 Intake Total 1050 / 1250 1150 / 1150 400 / 400 Output Total 300 / 300 600 / 600 600 / 600 Balance 750 / 950 550 / 550 -200 / -200 Lab / Micro Data 05/31/25 04:44 05/31/25 04:44 Labs: Laboratory Results - last 24 hr 05/30/25 06:51: POC Glucose 154 H 05/30/25 11:25: POC Glucose 234 H 05/30/25 16:37: POC Glucose 245 H 05/30/25 21:07: POC Glucose 219 H 05/31/25 04:44: WBC 4.8, RBC 2.78 L, Hgb 8.3 L, Hct 24.8 L, MCV 89.2, MCH 29.9, MCHC 33.5, RDW Std Deviation 49.4 H, RDW Coeff of [place] 15.1 H, Plt Count 146 L, MPV 10.3, Immature Gran % (Auto) 1.000 H, Neut % (Auto) 66.1, Lymph % (Auto) 24.4, [place] % (Auto) 4.6, Eos % (Auto) 3.1, Baso % (Auto) 0.8, Absolute Neuts (auto) 3.2, Absolute Lymphs (auto) 1.18, Nucleated RBC % 0, Sodium 135, Potassium 4.6, Chloride 104, Carbon Dioxide 21.6, Anion Gap 9, BUN 69 H, C [place] 1.25 H, Estim Creat Clear Calc 40.92 L, Est GFR (MDRD) Non-Af 46 L, B UN/Creatinine Ratio 55.3 H, Glucose 171 H, Calcium 9.0, Total Bilirubin 0.43, AST 19, ALT 15, Alkaline Phosphatase 48, Total Protein 5.0 L, Albumin 2.3 L, Globulin 2.7, Albumin/Globulin Ratio 0.9 05/31/25 05:54: POC Glucose 168 H Micro: Microbiology 05/26/25 15:52 Urine Catheter - Catheter Urine Culture - Final Presumptive C albicans Physical Exam Narrative Physical Examination: General: Awake, alert, oriented x 3 and cooperative, seated upright in the [place] bed, eager to get out into the chair because of tailbone discomfort. Skin: Normal color, normal turgor, no icterus, no cyanosis except for occasional stage ecchymoses, abrasion, bilateral lower extremity dressings in place, recent bilateral lower extremity dressing changes with no drainage noted, VAC in place. HEENT: AT/NC, EOMI, PERRLA, MMM. Lungs: Mildly diminished, greater bases, appropriate effort, no rales, ronchi or wheezing. Heart: Regular rate with regular rhythm; no gallop, rub audible. Abdomen: Soft, NTTP, ND, normal BS. Extremities: No cyanosis, no clubbing, see skin, bilateral lower extremity dressings, see skin. Neurological: Patient awake, alert, oriented as noted, cognitive function intact; pupils equally reactive to light and accommodation, cranial nerves grossly normal, moving all 4 extremities, mildly tremulous, no obvious focal deficits, strength improving, moderately to severely globally decreased, awaiting SNF transition. Psychiatric: Affect appears normal, no acute evidence of depressive or anxiety feelings. Assessment & Plan Assessment/Plan (1) Acute osteomyelitis of left foot: PLAN: Plan The patient is a 75 y/o F w/ PMHx: CAD, PAD s/p peripheral angioplasty, Diabetes mellitus type II with Chronic neuropathy, Anxiety and Depression, HTN, HLD, Former tobacco use, Chronic normocytic anemia/Fe deficiency anemia, CKD stage III unclear subtype per GFR trending, chronic bilateral lower extremity diabetic ulcerations/wounds following with Dr. Irene status post recent 05/20/2025 surgical intervention with discharge 05/21/2025 unfortunately with refusal for skilled placement as there was not a TCU bed available at that time who then returned 05/22/2025 with generalized weakness and mechanical fall while attempting to transfer unable to get herself up prompting return to the hospital for evaluation and care. #1. Adult FTT, Debility with patient deferral of recommended SNF placement following recent discharge w/ return to home with mechanical fall complicated by Recent bilateral lower extremity diabetic wounds with significantly MRSA infected left lower diabetic wound with associated MRSA bacteremia: Status post 05/20/2025 incision of the bone cortex of the left ankle, surgical skin grafting to the left leg, surgical skin grafting to the left foot, application of graft substitute, wound culture from OR with MRSA, discharged on linezolid, will continue antibiotic regimen with completion date 06/01/2025, continue podiatry involvement as well as continued infectious disease involvement and vascular surgery as noted, most recent podiatry evaluation 05/24/2025 with noted plan for continued Adaptic placement to the graft area with overlapping dry sterile dressing and single layer of Man compression bandage with plan for continued change every 3 days. Podiatry noted dressings may be removed if needed temporarily however replaced immediately following as noted. Patient cleared by vascular surgery and podiatry with plan for transition to TCU, possibly 05/31/2025 however still awaiting precertification, may not be until Sunday from discussion with staff. #2. Peripheral vascular disease, PAD with significant bilateral lower extremity wounds and ulceration: Patient following with Dr. Clement, most recent imaging noted during previous presentation also with CTA demonstrating significant calcific femoral disease bilaterally with angiogram evaluation of the tibial vessels. 05/26/25 left femoral endarterectomy, left femoral peroneal bypass with reversed GSV, cadaver left sartorius flap per Dr. Clement. Patient remains in the ICU with plan for transition out per vascular surgery preference 05/28/2025. Continue aspirin, Plavix, statin, hypertensive regimen however will defer to vascular surgery for adjustments or if temporary hold as needed given recent intervention if any bleeding concerns arise. 05/26/2025 postoperative hemoglobin 9.6, 05/27/25 AM hemoglobin 8.5-> 05/28/25 hemoglobin 7.3, given recent vascular surgery to be cautious we will administer 1 unit PRBC and plan repeat hemoglobin approximately 1 hour following completion. Low-dose heparin discontinued in agreement with vascular surgery. Patient cleared by vascular surgery, wound care dressing changes to bilateral lower extremity today noted to be well- appearing, VAC still in place, will plan transition to TCU, possibly 05/31/2025 however still awaiting precertification, may not be until Sunday from discussion with staff. #3. Acute GP Organism Complicated Urinary Tract Infection, RULED OUT (UCx without marked growth): Null catheter placed in the OR with mildly concerning output, urinalysis and urine culture with UCx w/ preliminary GP organism however eventually resulted without any marked growth, Null catheter discontinued and antibiotic therapy de-escalated off. #4. Chronic Kidney Disease Stage III, unclear subtype or GFR trending: Admission BUN/Cr 56/1.22, GFR 47, baseline renal function primarily 1.3-1.5 but did have recent presentation with acute kidney injury with creatinine up to 1.96, resolved currently and had felt at that time to be secondary to ATN, repeat BMP in AM. 05/31/2025 BUN/creatinine 69/1.25, GFR 46. #5. Diabetes mellitus type II complicated by #1 with chronic diabetic wounds and chronic diabetic neuropathy: Hold oral home regimen, maintain on ADA diet, awaiting vascular surgery wanted percent confirmation of intervention 05/26/2025, ADA diet, will maintain on accu checks w/ ISS, continue home pregabalin regimen. #6. Hypertension: Continue home regimen including metoprolol, amlodipine with hold parameters as needed, PRN hydralazine. #7. Hyperlipidemia: Continue home statin therapy. #8. Chronic normocytic anemia/iron deficiency anemia: Admission hemoglobin 9.5, MCV 90.2, baseline hemoglobin has vacillated but appears primarily 9 range, continue to closely trend CBC, if dropping further will investigate. Will continue iron supplementation. 05/27/25 hemoglobin 8.5-> 05/28/25 hemoglobin 7.3, administered 1 unit PRBC. 05/31/2025 hemoglobin 8.3. #9. Anxiety and depression: Noted history in the chart, not on regimen per current list, continue to monitor and follow-up outpatient as previously arranged. #10. Former tobacco use: Encourage continued tobacco cessation. #11. DVT prophylaxis: Heparin chemoprophylactic dosing. #12. CODE status: Patient VICTOR MANUEL is her sister. Full Code status. Charges/Coding Visit Charges Inpatient E&M: 73227 Subs Hosp L2
[2025-05-31] MEDS: Lactobacillis Acidophilus 1 CAP PO (09:51)
[2025-05-31] MEDS: Neuropathy Pain Cream Compound 60 CLICK TUBE TOPICAL (09:51)
[2025-05-31 09:52] VITALS: PULSE 70
[2025-05-31] MEDS: Metoprolol(XL)Succ 25 MG Tablet 12.5 MG PO (09:52)
[2025-05-31 10:00] VITALS: BP 130/60; PULSE 80; RESP 18; TEMP 36.7; O2SAT 94
[2025-05-31 11:00] VITALS: PULSE 81
[2025-05-31 15:46] VITALS: PULSE 84
[2025-05-31] MEDS: Aspirin E.C. 81 MG Tablet PO (20:13)
[2025-05-31 20:19] VITALS: BP 137/56; PULSE 72; RESP 16; TEMP 36.6; O2SAT 97
[2025-06-01 05:11] VITALS: BP 120/47; PULSE 65; RESP 16; TEMP 36.6; O2SAT 96
[2025-06-01 06:00] VITALS: BMI 26.4
[2025-06-01 08:54] VITALS: BP 120/42; PULSE 67; RESP 16; TEMP 36.6; O2SAT 100
[2025-06-01 08:59] VITALS: PULSE 67
[2025-06-01] MEDS: Lactobacillis Acidophilus 1 CAP PO (08:59)
[2025-06-01] MEDS: Neuropathy Pain Cream Compound 60 CLICK TUBE TOPICAL (08:59)
[2025-06-01] MEDS: Metoprolol(XL)Succ 25 MG Tablet 12.5 MG PO (08:59)
--- NOTE | 2025-06-01 09:04 | PCM.PN.HOSP ---
Reason for Visit Chief Complaint: Generalized weakness Subjective Subjective Patient is a 75-year-old lady with past medical history signal for PAD with previous angioplasty, diabetes mellitus type 2,Recent debridement of surgical debridement of chronic bilateral lower extremity DFU's admitted with progressive generalized weakness Objective Data Objective Data Vital Signs: Vital Signs Temp Pulse Resp BP Pulse Ox O2 Del Method O2 Flow Rate 97.8 F 67 16 120/42 L 100 Room Air 2 06/01/25 08:54 06/01/25 08:59 06/01/25 08:54 06/01/25 08:54 06/01/25 08:54 06/01/25 08:54 05/28/25 11:58 Oxygen Flow Rate (L/min) 2 Oxygen Delivery Method Room Air Weight: 74.8 kg Body Mass Index (BMI) 26.4 Intake & Output: Intake and Output for Last 24 Hours 05/30/25 05/31/25 06/01/25 23:59 23:59 23:59 Intake Total 1150 / 1150 850 / 850 400 / 400 Output Total 600 / 600 600 / 600 Balance 550 / 550 250 / 250 400 / 400 Lab / Micro Data 05/31/25 04:44 05/31/25 04:44 Labs: Laboratory Results - last 24 hr 05/31/25 11:31: POC Glucose 226 H 05/31/25 16:55: POC Glucose 261 H 05/31/25 19:58: POC Glucose 204 H 06/01/25 05:16: POC Glucose 119 H Micro: Microbiology 05/26/25 15:52 Urine Catheter - Catheter Urine Culture - Final Presumptive C albicans Physical Exam Narrative GENERAL: cooperative HEENT: Atraumatic; normocephalic EYES; Anicteric, Normal Conjunctiva NECK; supple, normal thyroid, RESPIRATORY: Diminished to auscultation CARDIOVASCULAR: Regular S1 S2, GI: soft, normoactive bowel sounds, : No Renal angle tenderness; EXTREMITIES: No lower extremity send surgical dressing MUSCULOSKELETAL: no muscle wasting NEURO: Awake; no lateralizing signs. SKIN: No Rash PSYCH; Flat affect Assessment & Plan Assessment/Plan (1) Acute osteomyelitis of left foot: PLAN: Plan Patient is a 75-year-old lady with past medical history signal for PAD with previous angioplasty, diabetes mellitus type 2,Recent debridement of surgical debridement of chronic bilateral lower extremity DFU's admitted with progressive generalized weakness 1. Physical deconditioning/debility ? Requested for PT OT eval and conference services coordinator to assist with discharge planning 2. Bilateral lower extremity ulcerations and wounds in setting of severe peripheral vascular disease and diabetes ? Had skin grafting done with podiatry on 05/20. 3. Severe peripheral arterial disease ? Patient was seen in consultation by Dr. Russell Ibanez with vascular surgery who didperfprm Left femoral endarterectomy left fem-peroneal bypass with reversed GSV, cadaver left sartorius flap on 05/26/2025 4. Anemia ? Secondary to chronic disorder as well as acute blood loss anemia following surgery monitoring H&H and transfuse if patient becomes symptomatic or hemoglobin falls below 7. Patient was transfused with 2 unit PRBC 5. Chronic kidney disease stage III ? Kidney function at baseline 6. Diabetes mellitus type II -patient's oral hypoglycemics held. Placed on long acting insulin, Accu-Cheks a.c. and at bedtime and covered with sliding scale insulin 7. Dyslipidemia ?Patient is on statin therapy, continued at home dose 8. Diabetic polyneuropathy ? Patient is on pregabalin 9. DVT prophylaxis ? Subcu heparin Charges/Coding Visit Charges Inpatient E&M: 97640 Subs Hosp L2
--- NOTE | 2025-06-01 09:53 | WOUNDNOTE ---
wound photo: left medial lower leg
--- NOTE | 2025-06-01 09:53 | WOUNDNOTE ---
wound photo: left medial ankle
--- NOTE | 2025-06-01 09:54 | WOUNDNOTE ---
wound photo: left lateral foot
--- NOTE | 2025-06-01 09:55 | WOUNDNOTE ---
wound photo: left heel
--- NOTE | 2025-06-01 09:55 | WOUNDNOTE ---
wound photo: left posterior lower leg
--- NOTE | 2025-06-01 09:56 | WOUNDNOTE ---
wound photo: right lateral heel
[2025-06-01 11:08] LABS: Hematocrit 27.9 % (37-47); Hemoglobin 9.0 g/dL (12.0-15.0); Mean Corp Hgb Conc 32.3 g/dL (32-36); Mean Corpuscular Volume 90.6 fL (81-99); Mean Platelet Vol. 10.5 fl (6.2-12.0); Platelet Count 155 K/mm3 (150-450); RBC Distribution Width CV 15.1 % (11.6-14.6); RBC Distribution Width SD 49.8 fl (35.1-43.9); Red Blood Count 3.08 M/mm3 (4.2-5.4); White Blood Count 6.1 K/mm3 (4.4-11.0)
[2025-06-01 11:14] LABS: AST(SGOT) 20 U/L (<=31); Alanine Aminotransfer ALT/SGPT 15 U/L (<=34); Albumin, Serum 2.7 g/dL (3.4-4.8); Alkaline Phosphatase 57 U/L (35-104); Anion Gap 12 (5-15); BUN 69 mg/dL (4-19); BUN/Creat Ratio 56.9 RATIO (10-20); Calcium,Total 9.4 mg/dL (7.6-11.0); Carbon Dioxide 21.5 mmol/L (21.0-32.0); Chloride 105 mmol/L (98-108); Estimated Creatinine Clearance 42.47 ml/min (50-250); Globulin 3.0 g/dL (2.2-4.2); Glucose 208 mg/dL (70-99); Magnesium 1.8 mg/dL (1.5-2.2); Potassium 4.6 mmol/L (3.3-5.1)
--- NOTE | 2025-06-01 14:24 | DS.PCM_ITS ---
Providers Date of Admission: 05/25/25 Primary Care Physician: Dr. Rishi Vasquez, Consultations 05/23/25 09:23 Consult: Podiatry Routine Consulting Provider: Patel Irene Reason for Consult: wounds EMERGENT Consult: No MD Notified: Yes Date Notified: 05/23/25 Time Notified: 09:24 Method of Notification: phone 05/24/25 09:54 Consult: Vascular Surgery Routine Consulting Provider: Russell Clement Reason for Consult: PVD EMERGENT Consult: No Notified: Yes Date Notified: 05/24/25 Time Notified: 09:55 Method of Notification: Verbal 05/29/25 06:37 Consult: Onc/Wound/director banking Routine Comment: Reason for Consult:: bilateral feet, coccyx Reason For Visit: GENERALIZED WEAKNESS Diagnosis Discharge Diagnosis (1) Acute osteomyelitis of left foot: Status: Acute Code(s): M86.172 - Other acute osteomyelitis, left ankle and foot Plan Patient is a 75-year-old lady with past medical history signal for PAD with previous angioplasty, diabetes mellitus type 2,Recent debridement of surgical debridement of chronic bilateral lower extremity DFU's admitted with progressive generalized weakness 1. Physical deconditioning/debility ? Requested for PT OT eval and director social service to assist with discharge planning 2. Bilateral lower extremity ulcerations and wounds in setting of severe peripheral vascular disease and diabetes ? Had skin grafting done with podiatry on 05/20. 3. Severe peripheral arterial disease ? Patient was seen in consultation by Dr. Russell Ibanez with vascular surgery who didperfprm Left femoral endarterectomy left fem-peroneal bypass with reversed GSV, cadaver left sartorius flap on 05/26/2025 4. Anemia ? Secondary to chronic disorder as well as acute blood loss anemia following surgery monitoring H&H and transfuse if patient becomes symptomatic or hemoglobin falls below 7. Patient was transfused with 2 unit PRBC 5. Chronic kidney disease stage III ? Kidney function at baseline 6. Diabetes mellitus type II -patient's oral hypoglycemics held. Placed on long acting insulin, Accu-Cheks a.c. and at bedtime and covered with sliding scale insulin 7. Dyslipidemia ?Patient is on statin therapy, continued at home dose 8. Diabetic polyneuropathy ? Patient is on pregabalin 9. DVT prophylaxis ? Subcu heparin Medications at Discharge Home Medications aspirin 81 mg tablet,delayed release 81 mg PO QHS blood clots 01/13/14 multivitamin with folic acid 400 mcg tablet 1 tab PO DAILY Supplement 01/13/14 omega-3 fatty acids-fish oil 340 mg-1,000 mg capsule 1 ea PO DAILY supplement 06/29/16 ferrous sulfate 325 mg (65 mg iron) tablet 325 mg PO DAILY SUPPLEMENT 08/15/18 ascorbic acid (vitamin C) 500 mg tablet 1,000 mg PO LUNCH Supplement 11/25/20 calcium carbonate (Calcium 600) 600 mg PO DAILY supplement 12/29/21 clopidogrel 75 mg tablet 75 mg PO DAILY Blood clots #90 tabs 10/23/24 Lactobacillus acidophilus (Acidophilus capsule) 600 mg PO QDAY gi 03/07/25 pregabalin 100 mg capsule 100 mg PO TID nerve pain 03/07/25 simvastatin 20 mg tablet 20 mg PO QHS cholesterol #30 tabs 03/23/25 nystatin 100,000 unit/gram topical powder (Nyamyc) 1 applic topical BID PRN rash 05/07/25 acetaminophen 650 mg tablet,extended release 650 mg PO Q12H PRN pain 05/08/25 amlodipine 5 mg tablet 5 mg PO DAILY HTN #90 tabs 05/12/25 metoprolol succinate 25 mg tablet,extended release 24 hr 12.5 mg (1/2 x 25 mg) PO DAILY HEART RATE #45 tabs 05/12/25 glimepiride 2 mg tablet 2 mg PO BID 05/18/25 gabapentin (bulk) 100 % powder 2 ea topical BID #0 grams 05/28/25 linezolid 600 mg tablet 600 mg PO BID #21 tabs 05/28/25 menthol 0.44 %-zinc oxide 20.6 % topical ointment (Calmoseptine) 1 applic topical BID #0 grams 05/28/25 oxycodone 5 mg tablet 5 mg PO Q4H PRN PRN Pain Score 4-10 #0 tabs 05/28/25 Hospital Course Summary of Care Provided Minutes Spent on Discharge: 35 Physical Exam Narrative GENERAL: cooperative HEENT: Atraumatic; normocephalic EYES; Anicteric, Normal Conjunctiva NECK; supple, normal thyroid, RESPIRATORY: Diminished to auscultation CARDIOVASCULAR: Regular S1 S2, GI: soft, normoactive bowel sounds, : No Renal angle tenderness; EXTREMITIES: No lower extremity send surgical dressing MUSCULOSKELETAL: no muscle wasting NEURO: Awake; no lateralizing signs. SKIN: No Rash PSYCH; Flat affect Weight / BMI Weight Weight: 74.8 kg Body Mass Index (BMI) 26.4 ABG / Lab / Microbiology Data 06/01/25 10:07 06/01/25 10:07 Laboratory: Laboratory Results - last 24 hr 05/31/25 16:55: POC Glucose 261 H 05/31/25 19:58: POC Glucose 204 H 06/01/25 05:16: POC Glucose 119 H 06/01/25 10:07: WBC 6.1, RBC 3.08 L, Hgb 9.0 L, Hct 27.9 L, MCV 90.6, MCH 29.2, MCHC 32.3, RDW Std Deviation 49.8 H, RDW Coeff of Jorgito 15.1 H, Plt Count 155, MPV 10.5, Sodium 138, Potassium 4.6, Chloride 105, Carbon Dioxide 21.5, Anion Gap 12, BUN 69 H, Creatinine 1.22 H, Estim Creat Clear Calc 42.47 L, Est GFR (MDRD) Non-Af 47 L, BUN/Creatinine Ratio 56.9 H, Glucose 208 H, Calcium 9.4, Phosphorus 3.5, Magnesium 1.8, Total Bilirubin 0.59, AST 20, ALT 15, Alkaline Phosphatase 57, Total Protein 5.7 L, Albumin 2.7 L, Globulin 3.0, Albumin/Globulin Ratio 0.9 06/01/25 11:43: POC Glucose 268 H Microbiology: Microbiology 05/26/25 15:52 Urine Catheter - Catheter Urine Culture - Final Presumptive C albicans D/C Instructions DC O2, CPAP, BIPAP Needs Home O2 Discharge instructions: No Meaningful Use Info Meaningful Use Meaningful Use Diagnoses (Choose all that apply): None applicable Discharge Plan Admission Admit Date/Time: 05/25/25 11:46 Primary Reason for Your Visit: Adult FTT, BL LE Diabetic wounds (recent MRSA infected wound), PAD Attending Provider: Christos Morrow Primary Care Provider: Rishi Vasquez Consulting Providers: Wilberto Suazo; Michaela Joshua; Patel Irene; Russell Clement; Maddie Merchant Instructions Additional Instructions / Restrictions: PODIATRY BILATERAL LOWER EXTREMITY CARE DISCHARGE AND FOLLOW-UP INSTRUCTIONS: --Dressing change orders to the bilateral extremity: 1. Remove all dressing down to the amniotic skin graft and leave the skin graft intact with jacob. 2. Cover the skin graft with Adaptic, 4 x 4's, light Kerlix wrap, underlying cast padding and Marino wrap's with 20% compression from sulcus of toes to the mid calf to the bilateral lower extremity. 3. Please change bilateral lower extremity dressing every 3 days. 4. Please offload left lower extremity with Multi-Podus boot. --Weightbearing status: Patient can be weightbearing as tolerated in surgical shoes and walker --Please follow-up with Dr. Irene in private office in 7 to 10 days post- discharge. VASCULAR SURGERY DISCHARGE AND FOLLOW-UP INSTRUCTIONS: --For L groin incision site, Prevena vacuum dressing is to remain in place for 7 days postoperatively (removal date 06/02) as long as it maintains good seal. If it is alarming, loses seal, or otherwise malfunctions then OK to remove sooner as needed. The incision itself is closed with dermabond and Prineo tape which will continue to protect the incision and will peel/flake away on its own with time. For the L lower leg incision, this is also closed with dermabond. OK for both to be open to air as long as there is no drainage. If there is drainage noted, then would apply dry gauze dressings and change daily. From vascular surgical perspective, OK for showers and soap/water can rinse over the incision sites but defer to podiatry regarding bathing restrictions. --With respect to activity, she is not to lift >20 lbs for 3 weeks but otherwise can proceed with activity as tolerated. --Please continue ASA 81mg daily and Plavix 75mg daily. --Please follow-up in vascular surgery office in 2 weeks. Discharge Orders/Prescriptions Prescriptions: New menthol-zinc oxide [Calmoseptine] 0.44-20.6 % Ointment 1 applic topical BID Qty: 0 0RF Protocol: *Topical Application Instructions APPLICATION INSTRUCTIONS: groin gabapentin (bulk) 100 % Powder 2 ea topical BID Qty: 0 0RF oxycodone 5 mg Tablet 5 mg PO Q4H PRN PRN (Reason: Pain Score 4-10) Qty: 0 0RF Continued calcium carbonate [Calcium 600] 600 mg calcium (1,500 mg) tablet 600 mg PO DAILY nystatin [Nyamyc] 100,000 unit/gram powder 1 applic topical BID PRN (Reason: rash) Protocol: *Topical Application Instructions APPLICATION INSTRUCTIONS: apply to abdominal folds, under breasts aspirin 81 MG tablet 81 mg PO QHS multivitamin with folic acid 1 TABLET tablet 1 tab PO DAILY Patient Comments: vitamin supplement ascorbic acid (vitamin C) 500 mg tablet 1,000 mg PO LUNCH Patient Comments: supplement omega-3 fatty acids-fish oil 1 EACH capsule 1 ea PO DAILY Patient Comments: supplement ferrous sulfate 325 MG tablet 325 mg PO DAILY linezolid 600 mg Tablet 600 mg PO BID Qty: 21 0RF Rx Instructions: STOP DATE 06/01/25 AFTER AM DOSE. pregabalin 100 mg capsule 100 mg PO TID Acidophilus Capsule 600 mg PO QDAY acetaminophen 650 mg tablet extended release 650 mg PO Q12H PRN (Reason: pain) glimepiride 2 mg tablet 2 mg PO BID clopidogrel 75 mg tablet 75 mg PO DAILY Qty: 90 3RF Patient Comments: ask about stopping simvastatin 20 mg tablet 20 mg PO QHS Qty: 30 11RF amlodipine 5 mg tablet 5 mg PO DAILY Qty: 90 3RF metoprolol succinate 25 mg tablet extended release 24 hr 12.5 mg PO DAILY Qty: 45 3RF Discontinued Santyl 250 unit/gram Ointment 1 applic topical DAILY Qty: 15 0RF Protocol: *Topical Application Instructions APPLICATION INSTRUCTIONS: apply nickel thick layer to left posterior lower leg, left medial ankle, and left heel Rx Instructions: Apply to wound as instructed Referrals / Follow Up: Russell Clement MD [Med Staff - Active Staff] - (Follow-up with Vascular surgery in 2 weeks.) Rishi Vasquez DO [Primary Care Provider] - (Follow-up within 1-2 days of SNF discharge.) Patel Irene DPM [Med Staff - Active Staff] - See Referral Note (Patient is a follow-up in private office 7 to 10 days post hospital discharge.) Disposition Disposition (needs filled in before D/C Order can be placed): [facility] Charges/Coding Visit Charges Inpatient E&M: 79143 Disch Hosp >30min
--- NOTE | 2025-06-01 14:32 | PCM.TXEXTCAR ---
Diet Diet Order/Speech Therapy: INPATIENT Hospital Diet / Speech Therapy Order(s) 05/30/25 10:01 ADA [Diet: Cardiac: Calorie-Controlled] Dietary Modifications:: Consistent Carbohydrate Type of Dietary Supplement:: Davion Diet Comments: davion with breakfast and dinner; 120ml gee glucerna shake with lunch How many daily calories?: 1800 calorie Routine Orders/Code Status Enema Frequency: Daily PRN Routine Lab Work: - (Repeat CBC, BMP in 1 week.) Code Status: Full Code DC O2, CPAP, BIPAP needs Home O2 Discharge instructions: No Wound(s) left leg: Wound Type: Neuropathic/Diabetic Foot Ulcer right foot: Wound Type: Neuropathic/Diabetic Foot Ulcer LT groin: Wound Type: Surgical Incision Dressing Change: Prevena VAC in place right heel: Wound Type: Neuropathic/Diabetic Foot Ulcer Dressing Change: Adpatic left posterior lower leg: Wound Type: Stasis Ulcer Dressing Change: Adaptic left heel: Wound Type: Neuropathic/Diabetic Foot Ulcer Dressing Change: Adaptic left medial ankle: Wound Type: Neuropathic/Diabetic Foot Ulcer Dressing Change: Adaptic left lateral foot: Wound Type: Neuropathic/Diabetic Foot Ulcer Dressing Change: Adaptic left medial lower leg: Wound Type: Surgical Incision Dressing Change: dry dressing Buttocks: Wound Type: Pressure Injury alexia cleft: Wound Type: moisture associated skin damage Suggestions for Active Care Change Position every (hours): 2 Hours to sit in a chair: 6 Times a day to sit in chair: 3 Therapies Physical Therapy: Eval and Treat Occupational Therapy: Eval and Treat Problem/Diagnosis (1) Acute osteomyelitis of left foot: Status: Acute Code(s): M86.172 - Other acute osteomyelitis, left ankle and foot Plan Patient is a 75-year-old lady with past medical history signal for PAD with previous angioplasty, diabetes mellitus type 2,Recent debridement of surgical debridement of chronic bilateral lower extremity DFU's admitted with progressive generalized weakness 1. Physical deconditioning/debility ? Requested for PT OT eval and executive secretary social welfare to assist with discharge planning 2. Bilateral lower extremity ulcerations and wounds in setting of severe peripheral vascular disease and diabetes ? Had skin grafting done with podiatry on 05/20. 3. Severe peripheral arterial disease ? Patient was seen in consultation by Dr. Russell Ibanez with vascular surgery who didperfprm Left femoral endarterectomy left fem-peroneal bypass with reversed GSV, cadaver left sartorius flap on 05/26/2025 4. Anemia ? Secondary to chronic disorder as well as acute blood loss anemia following surgery monitoring H&H and transfuse if patient becomes symptomatic or hemoglobin falls below 7. Patient was transfused with 2 unit PRBC 5. Chronic kidney disease stage III ? Kidney function at baseline 6. Diabetes mellitus type II -patient's oral hypoglycemics held. Placed on long acting insulin, Accu-Cheks a.c. and at bedtime and covered with sliding scale insulin 7. Dyslipidemia ?Patient is on statin therapy, continued at home dose 8. Diabetic polyneuropathy ? Patient is on pregabalin 9. DVT prophylaxis ? Subcu heparin Allergies/Procedures Done in Hospital Allergies Sulfa (Sulfonamide Antibiotics) Allergy (Verified 05/22/25 11:05) Unknown doesn't remember/ allergy noted as a child Procedures: EKG and - (05/26/25 left femoral endarterectomy left fem-peroneal bypass with reversed GSV, cadaver left sartorius flap per Dr. Clement.) Type of Care/Length of Stay Estimated LOS: Convalescent Care Less Than 30 days Type of Care Needed: Skilled Rehab Potential: Good Prognosis: Good Additional Orders/Day of Discharge Day of Discharge: 05/29/25 Dietary and Speech Recommendations Dietitian Recommendations/Changes: Adjust to cardiac; consistent carbohdyrate diet. Continue davion with breakfast and dinner. Will order 120ml chocolate glucerna shake with lunch. Will monitor weigh trends. Discharge Plan Admission Admit Date/Time: 05/25/25 11:46 Primary Reason for Your Visit: Adult FTT, BL LE Diabetic wounds (recent MRSA infected wound), PAD Attending Provider: Christos Morrow Primary Care Provider: Rishi Vasquez Consulting Providers: Wilberto Suazo; Michaela Joshua; Patel Irene; Russell Clement; Maddie Merchant Instructions Additional Instructions / Restrictions: PODIATRY BILATERAL LOWER EXTREMITY CARE DISCHARGE AND FOLLOW-UP INSTRUCTIONS: --Dressing change orders to the bilateral extremity: 1. Remove all dressing down to the amniotic skin graft and leave the skin graft intact with jacob. 2. Cover the skin graft with Adaptic, 4 x 4's, light Kerlix wrap, underlying cast padding and Marino wrap's with 20% compression from sulcus of toes to the mid calf to the bilateral lower extremity. 3. Please change bilateral lower extremity dressing every 3 days. 4. Please offload left lower extremity with Multi-Podus boot. --Weightbearing status: Patient can be weightbearing as tolerated in surgical shoes and walker --Please follow-up with Dr. Irene in private office in 7 to 10 days post-discharge. VASCULAR SURGERY DISCHARGE AND FOLLOW-UP INSTRUCTIONS: --For L groin incision site, Prevena vacuum dressing is to remain in place for 7 days postoperatively (removal date 06/02) as long as it maintains good seal. If it is alarming, loses seal, or otherwise malfunctions then OK to remove sooner as needed. The incision itself is closed with dermabond and Prineo tape which will continue to protect the incision and will peel/flake away on its own with time. For the L lower leg incision, this is also closed with dermabond. OK for both to be open to air as long as there is no drainage. If there is drainage noted, then would apply dry gauze dressings and change daily. From vascular surgical perspective, OK for showers and soap/water can rinse over the incision sites but defer to podiatry regarding bathing restrictions. --With respect to activity, she is not to lift >20 lbs for 3 weeks but otherwise can proceed with activity as tolerated. --Please continue ASA 81mg daily and Plavix 75mg daily. --Please follow-up in vascular surgery office in 2 weeks. Discharge Orders/Prescriptions Prescriptions: New menthol-zinc oxide [Calmoseptine] 0.44-20.6 % Ointment 1 applic topical BID Qty: 0 0RF Protocol: *Topical Application Instructions APPLICATION INSTRUCTIONS: groin gabapentin (bulk) 100 % Powder 2 ea topical BID Qty: 0 0RF oxycodone 5 mg Tablet 5 mg PO Q4H PRN PRN (Reason: Pain Score 4-10) Qty: 0 0RF Continued calcium carbonate [Calcium 600] 600 mg calcium (1,500 mg) tablet 600 mg PO DAILY nystatin [Nyamyc] 100,000 unit/gram powder 1 applic topical BID PRN (Reason: rash) Protocol: *Topical Application Instructions APPLICATION INSTRUCTIONS: apply to abdominal folds, under breasts aspirin 81 MG tablet 81 mg PO QHS multivitamin with folic acid 1 TABLET tablet 1 tab PO DAILY Patient Comments: vitamin supplement ascorbic acid (vitamin C) 500 mg tablet 1,000 mg PO LUNCH Patient Comments: supplement omega-3 fatty acids-fish oil 1 EACH capsule 1 ea PO DAILY Patient Comments: supplement ferrous sulfate 325 MG tablet 325 mg PO DAILY linezolid 600 mg Tablet 600 mg PO BID Qty: 21 0RF Rx Instructions: STOP DATE 06/01/25 AFTER AM DOSE. pregabalin 100 mg capsule 100 mg PO TID Acidophilus Capsule 600 mg PO QDAY acetaminophen 650 mg tablet extended release 650 mg PO Q12H PRN (Reason: pain) glimepiride 2 mg tablet 2 mg PO BID clopidogrel 75 mg tablet 75 mg PO DAILY Qty: 90 3RF Patient Comments: ask about stopping simvastatin 20 mg tablet 20 mg PO QHS Qty: 30 11RF amlodipine 5 mg tablet 5 mg PO DAILY Qty: 90 3RF metoprolol succinate 25 mg tablet extended release 24 hr 12.5 mg PO DAILY Qty: 45 3RF Discontinued Santyl 250 unit/gram Ointment 1 applic topical DAILY Qty: 15 0RF Protocol: *Topical Application Instructions APPLICATION INSTRUCTIONS: apply nickel thick layer to left posterior lower leg, left medial ankle, and left heel Rx Instructions: Apply to wound as instructed Referrals / Follow Up: Russell Clement MD [Med Staff - Active Staff] - (Follow-up with Vascular surgery in 2 weeks.) Rishi Vasquez DO [Primary Care Provider] - (Follow-up within 1-2 days of SNF discharge.) Patel Irene DPM [Med Staff - Active Staff] - See Referral Note (Patient is a follow-up in private office 7 to 10 days post hospital discharge.) Disposition Disposition (needs filled in before D/C Order can be placed): [facility]
--- NOTE | 2025-06-01 14:50 | CASEMGMT ---
Social Work- SW received notice that precert has been obtained. Physician updated and feel that pt is medically ready. TCU admissions notified. Pt notified and is agreeable to discharge plan. Bedside nurse notified. Discharge faxed to TCU admissions. Plan: TCU; skilled level of care BREANNA Salvador
[2025-06-01 15:00] VITALS: BP 109/56; PULSE 68; RESP 17; TEMP 36.7; O2SAT 100
== END 2025-06-01 18:11 | disposition skilled nursing facility (03) | DRG 253 ==
LOC: ED 13:36 → MS3 14:08 → ICU 05-26 09:15 → MS3 05-28 15:10
PROVIDERS: Family Medicine; Internal Medicine; Physician Assistant; Surgery Trauma Surgery; Admitting Provider Hospitalist; Emergency Provider Emergency Medicine; PCP Student in an Organized Health Care Education/Training Program; Referring Provider Hospitalist; Visit Provider Internal Medicine
PROC: 04CL0ZZ Extirpation of Matter from Left Femoral Artery, Open Approach (ICD-10-PCS; principal; 2025-05-26 07:00)
DX: E11.51 Type 2 diabetes mellitus with diabetic peripheral angiopathy without gangrene (principal); L97.422 Non-pressure chronic ulcer of left heel and midfoot with fat layer exposed; D62 Acute posthemorrhagic anemia; L97.412 Non-pressure chronic ulcer of right heel and midfoot with fat layer exposed; I70.244 Atherosclerosis of native arteries of left leg with ulceration of heel and midfoot; D63.8 Anemia in other chronic diseases classified elsewhere; I70.234 Atherosclerosis of native arteries of right leg with ulceration of heel and midfoot; L89.159 Pressure ulcer of sacral region, unspecified stage; R62.7 Adult failure to thrive; J44.9 Chronic obstructive pulmonary disease, unspecified; N18.31 Chronic kidney disease, stage 3a; E11.621 Type 2 diabetes mellitus with foot ulcer; F32.A Depression, unspecified; I12.9 Hypertensive chronic kidney disease with stage 1 through stage 4 chronic kidney disease, or unspecified chronic kidney disease; E11.22 Type 2 diabetes mellitus with diabetic chronic kidney disease; D50.9 Iron deficiency anemia, unspecified; E11.42 Type 2 diabetes mellitus with diabetic polyneuropathy; E78.5 Hyperlipidemia, unspecified; W07.XXXA Fall from chair, initial encounter; I25.10 Atherosclerotic heart disease of native coronary artery without angina pectoris; F41.9 Anxiety disorder, unspecified; E11.69 Type 2 diabetes mellitus with other specified complication; M54.2 Cervicalgia; R53.81 Other malaise; R79.89 Other specified abnormal findings of blood chemistry; Z79.82 Long term (current) use of aspirin; Z79.02 Long term (current) use of antithrombotics/antiplatelets; Z86.19 Personal history of other infectious and parasitic diseases; Z79.84 Long term (current) use of oral hypoglycemic drugs; Z79.899 Other long term (current) drug therapy; Z87.891 Personal history of nicotine dependence
CPT/HCPCS: 36415; 80048; 80053; 81001; 82962; 83735; 84100; 85014; 85018; 85025; 85027; 85347; 85610; 85730; 86850; 86900; 86901; 87086; 87088; 88304; 88311; 93005; 97110; 97116; 97161; 97165; 97530; 97535; 97802; 97803; 99252; 99285; A4648; P9016; A4216; C1757; G0463; J2405

== ENCOUNTER 2025-06-01 18:21 | Inpatient (IN) | payer MEDICARE, SELFPAY ==
[2025-06-01 18:32] VITALS: BP 122/54; PULSE 71; RESP 16; TEMP 37; O2SAT 96; BMI 26.1
--- NOTE | 2025-06-01 19:41 | HP.PCM_ITS ---
HPI - General General Date of Admission: 06/01/25 Date of Service: 06/02/25 Chief Complaint: Here for rehabilitation. HPI Narrative KIMBERLY NEWMAN, is a 75 Female who presents with followin05/22/2025 [facility] ED fall. Slid out of chair, fell, sat for a while. Unable to get up, EMS called, recent foot surgery 05/20/2025. Lives alone, unsafe to go home. 05/22/2025 Admit [facility]. PT/OT/CM for SNF. Continue Linezolid for MRSA foot wound. 05/23/2025 PT/OT SNF. Linezolid for MRSA bacteremia. 05/24/2025 Slept well, having bowel movements, no pain. PT/OT SNF. Linezolid for MRSA bacteremia, blood cultures negative 48 hours. 05/25/2025 No acute events overnight, neck pain. PT/OT/CM SNF. 05/26/2025 Dr. Clement performed left femoral endarterectomy, left fem-peroneal bypass with reversed GSV, cadaver, left sartorius flap. 05/27/2025 Indwelling gonzalez, urinalysis c/w urinary tract infection, Rocephin iv, urine culture pending. Bilateral lower extremity pain. PT/OT TCU. Discontinue Gnozalez in 24 hours. Aspirin, Plavix, stop Heparin for paod s/p revascularization. 05/28/2025 No acute events overnight, Hemoglobin 7.3, Transfuse 1 unit PRBC. Left calf pain, wound VAC in place. Plan TCU on discharge. 05/29/2025 No acute events overnight, plan TCU. UTI ruled out, Rocephin stopped, Gonzalez removed. 05/30/2025 No acute events overnight. Discharge to TCU. 05/31/2025 Pre-[facility] TCU. 06/01/2025 Admit to TCU with debility, here for rehabilitation, strengthening, prior to discharge home alone. 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 Chronic painful diabetic polyneuropathy MRSA (methicillin resistant staph aureus) culture positive Depression Diabetes Back pain Vertigo History of pain when walking Hypertension Arthritis Wears dentures Post-menopausal Low iron High cholesterol Easy bruising Neuropathy Dietary restriction Former smoker Cardiology follow-up encounter History of torn meniscus of left knee Carotid artery stenosis Essential hypertension Skin lesion Hammer toe of left foot Osteomyelitis Chronic kidney disease, stage 3 Atherosclerosis of coronary artery of [place] heart without angina pectoris Hyperlipidemia Peripheral vascular occlusive disease Hammer toe of second toe of left foot Hallux valgus (acquired), right foot Healed ulcer of left foot on examination Chronic ulcer of left foot with fat layer exposed Delayed wound healing Malnutrition Osteomyelitis of foot 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 Methicillin resistant Staphylococcus aureus infection Chronic osteomyelitis of left foot Non-healing ulcer of right foot DM2 (diabetes mellitus, type 2) Home Medications ?Medication ?Instructions ?Recorded ?Last Taken ?Type aspirin 81 mg tablet,delayed 81 mg PO QHS blood clots 01/13/14 05/31/25 20:15 History release multivitamin with folic acid 400 1 tab PO DAILY Supple ment 01/13/14 06/01/25 09:00 History mcg tablet omega-3 fatty acids-fish oil 340 1 ea PO DAILY supplem ent 06/29/16 08/27/16 History mg-1,000 mg capsule ferrous sulfate 325 mg (65 mg 325 mg PO DAILY SUPPLEME NT 08/15/18 06/01/25 12:50 History iron) tablet ascorbic acid (vitamin C) 500 mg 1,000 mg PO LUNCH Sup plement 11/25/20 06/01/25 12:50 History tablet calcium carbonate (Calcium 600) 600 mg PO DAILY supple ment 12/29/21 06/01/25 09:00 History clopidogrel 75 mg tablet 75 mg PO DAILY Blood clots # 90 tabs 10/23/24 06/01/25 09:00 Rx Lactobacillus acidophilus 600 mg PO QDAY gi 03/07/25 0 06/01/25 09:00 History (Acidophilus capsule) pregabalin 100 mg capsule 100 mg PO TID nerve pain 06/01/25 12:50 History simvastatin 20 mg tablet 20 mg PO QHS cholesterol #30 tabs 03/23/25 05/31/25 20:15 Rx nystatin 100,000 unit/gram topical 1 applic topical BI D PRN rash 05/07/25 Unknown History powder ([facility]) acetaminophen 650 mg 650 mg PO Q12H PRN pain 04/20 Unknown History tablet,extended release amlodipine 5 mg tablet 5 mg PO DAILY HTN #90 tabs 0 05/12/25 06/01/25 09:00 Rx metoprolol succinate 25 mg 12.5 mg (1/2 x 25 mg) PO DA FABIAN 05/12/25 06/01/25 09:00 Rx tablet,extended release 24 hr HEART RATE #45 tabs glimepiride 2 mg tablet 2 mg PO BID Diabetes 5 Unknown History gabapentin (bulk) 100 % powder 2 ea topical BID Pain # 0 grams 05/28/25 06/01/25 09:00 Rx linezolid 600 mg tablet 600 mg PO BID Antibiotic #21 tabs 05/28/25 Unknown Rx menthol 0.44 %-zinc oxide 20.6 % 1 applic topical BID Skin 05/28/25 Unknown Rx topical ointment (Calmoseptine) Irritation #0 grams oxycodone 5 mg tablet 5 mg PO Q4H PRN PRN Pain Sco re 05/28/25 05/30/25 Rx 4-10 #0 tabs Allergy/AdvReac Type Severity Reaction Status Date / Time Sulfa (Sulfonamide Allergy Unknown Verified 05/22/25 11:05 Antibiotics) Family History Father CAD (coronary artery disease) Heart disease Hypertension CVA (cerebral vascular accident) Mother COPD (chronic obstructive pulmonary disease) Hypertension Heart disease Heart failure Surgical History History of cardiac catheterization History of colonoscopy History of foot surgery History of repair of left rotator cuff History of total left knee replacement (~2014) History of angioplasty of peripheral vessel (~2012) amputation left toe History of left heart catheterization (~01/20/14) Social History household members: none Smoking Status: Former smoker how long ago did patient quit smokin years ago alcohol intake: never substance use type: does not use caffeine: No ROS Constitutional Constitutional: Denies chills, fever(s) or weight gain ENT HEENT: Denies headache(s), nasal congestion or nasal discharge Cardiovascular Cardiovascular: Denies chest pain or palpitations Respiratory/Chest Respiratory/Chest: Denies cough, excessive phlegm production or shortness of breath with exertion Gastrointestinal Gastrointestinal: Denies abdominal pain, nausea or vomiting Genitourinary Genitourinary: Denies dysuria Musculoskeletal Musculoskeletal: Denies joint pain or joint swelling Integumentary Integumentary: Denies rash or wounds Neurologic Neurologic: Denies focal weakness, numbness or tingling Psychiatric Psychiatric: Denies anxiety, auditory hallucinations, depression, homicidal ideation or suicidal ideation Vital Signs Vital Signs Vital Signs: Weight Weight: 73.391 kg Body Mass Index (BMI) 26.1 Physical Exam Const alert General Appearance: cooperative HEENT normocephalic Eyes PERRL and EOMs intact bilaterally Neck supple, no JVD and no carotid bruits Resp normal respiratory effort, normal air movement and clear to auscultation bilaterally Cardio regular rate and regular rhythm GI normal to inspection, nondistended, normoactive bowel sounds, non-tender and non-distended Extremity normal capillary refill Extremity Narrative: Left lower extremity dressed, boot. General Extremity: Negative for edema Skin no rashes or lesions noted General Skin Exam: no breakdown Psych affect normal Appearance: appropriate Results Lab / Micro Data 06/02/25 05:27 06/02/25 05:27 Assessment & Plan Assessment/Plan (1) Debility: (2) Weakness: (3) Bacteremia: (4) PAOD (peripheral arterial occlusive disease): (5) Essential (primary) hypertension: (6) Hyperlipidemia: QUALIFIERS: Hyperlipidemia type: unspecified Qualified Code(s): E 78.5 - Hyperlipidemia, unspecified (7) Type 2 diabetes mellitus with hyperglycemia: (8) Diabetes mellitus with polyneuropathy: QUALIFIERS: Diabetes mellitus type: type 2 Qualified Code(s): E 11.42 - Type 2 diabetes mellitus with diabetic polyneuropathy PLAN: Plan 75 year old female with below past medical history hospitalized for fall, recent mrsa bacteremia, underwent left lower extremity revascularization 05/26/[address] Clement, admitted to TCU with debility, here for rehabilitation, strengthening, prior to discharge home alone. * Debility - PT/OT. * Pain - Tylenol 1000mg q6 prn pain (1-3), Oxycodone 5mg q4 prn pain (4-10). * Bowel - senna/colace 2 tablets bid, Magnesium citrate 300mL daily prn. * Adult immunization - Administer pneumonia vaccine, covid vaccine, flu vaccine as appropriate. * DVT prophylaxis - Hold, on DAPT. * Hypertension - Metoprolol succinate 12.5mg daily, Amlodipine 5mg daily. * Iron deficiency anemia - Vitamin C 1000mg daily, Ferrous sulfate 325mg daily. * PAOD s/p left lower extremity revascularization - Aspirin 81mg daily, Plavix 75mg daily. * Hyperlipidemia - Atorvastatin 10ng qhs, [employer] [place] 3 1 gram daily. * Indigestion - TUMS 500mg daily. * Diabetes Mellitus II - Glimepiride 2mg bid. * GI prophylaxis - Lactobacillus 1 capsule daily. * Skin irritation - Calomseptine topical bid. * Nutrition - MVI 1 tablet daily. * Diabetic polyneuropathy - Lyrica 100mg tid, Neuropathy pain cream 2 clicks topical bid. * Tinea Corporis - Nystatin topical bid. * Postoperative anemia - check stool for blood, transfuse 1 unit prbc.
[2025-06-01 19:50] VITALS: RESP 16
[2025-06-01] MEDS: 0.9% Saline Lock 10 ML Syringe IV (19:50)
[2025-06-01] MEDS: Neuropathy Pain Cream Compound 60 CLICK TUBE TOPICAL (21:59)
[2025-06-02 05:52] LABS: Hematocrit 23.8 % (37-47); Hemoglobin 7.8 g/dL (12.0-15.0); Immature Granulocytes Count 0.010 X10^3/uL (0.0-0.0); Mean Corp Hgb Conc 32.8 g/dL (32-36); Mean Corpuscular Volume 89.5 fL (81-99); Mean Platelet Vol. 10.5 fl (6.2-12.0); NRBC Flagged by Analyzer 0 % (0-5); POSITIVE MORPHOLOGY YES; Platelet Count 109 K/mm3 (150-450); RBC Distribution Width CV 14.8 % (11.6-14.6); RBC Distribution Width SD 47.8 fl (35.1-43.9); Red Blood Count 2.66 M/mm3 (4.2-5.4); White Blood Count 3.8 K/mm3 (4.4-11.0)
[2025-06-02 05:56] LABS: Differential Indicated SCAN CRITERIA MET
[2025-06-02 05:57] VITALS: RESP 16
--- NOTE | 2025-06-02 06:02 | NURSING ---
Disposable wound vac removed to left femoral sx site per order. Site is clean and dry, no drainage observed, dermabond. Patient tolerated the removal well.
[2025-06-02 06:12] LABS: Anion Gap 11 (5-15); BUN 76 mg/dL (4-19); BUN/Creat Ratio 62.0 RATIO (10-20); Calcium,Total 9.0 mg/dL (7.6-11.0); Carbon Dioxide 21.2 mmol/L (21.0-32.0); Chloride 105 mmol/L (98-108); Estimated Creatinine Clearance 42.10 ml/min (50-250); Glucose 181 mg/dL (70-99); Potassium 4.5 mmol/L (3.3-5.1)
[2025-06-02 06:48] LABS: Differential Comment SCANNED; Red Cell Morphology NORM C+C NORMAL (NORM C&C)
--- NOTE | 2025-06-02 10:00 | CASEMGMT ---
Social Work Pt off unit for blood transfusion when this worker attempted to complete admission assessment. SW will return to complete. Katarina Bunch [employer] TE[employer] SPECIALIST
[2025-06-02 10:04] VITALS: BP 137/51; PULSE 68; RESP 17; TEMP 36.4; O2SAT 95
[2025-06-02 10:10] VITALS: PULSE 68
[2025-06-02] MEDS: Metoprolol(XL)Succ 25 MG Tablet 12.5 MG PO (10:10)
[2025-06-02] MEDS: Lactobacillis Acidophilus 1 CAP PO (10:10)
[2025-06-02 10:37] VITALS: BP 128/48; PULSE 68; RESP 16; TEMP 36.3; O2SAT 100
[2025-06-02] MEDS: 0.9% Saline Lock 10 ML Syringe IV (10:41)
[2025-06-02 11:27] VITALS: BP 131/44; PULSE 58; RESP 16; TEMP 36.6; O2SAT 98
[2025-06-02 12:27] VITALS: BP 136/43; PULSE 63; RESP 16; TEMP 36.3
[2025-06-02] MEDS: Tuberculin,Purif.prot.deriv. 50 TU/ML Vial 0.1 ML ID (14:14)
--- NOTE | 2025-06-02 14:55 | NURSING ---
Off unit to infusion center at 1030. Back to unit via at 1330.
--- NOTE | 2025-06-02 17:25 | RAD_ITS ---
PROCEDURE: SHOULDER MIN 2 VIEWS 06/02/2025 REASON FOR EXAM: PAIN. TECHNIQUE: SHOULDER MIN 2 VIEWS COMPARISON: 06/19/2024 FINDINGS: No acute fracture or dislocation. Alignment is anatomic. Mild-moderate degenerative arthrosis of the right glenohumeral and acromioclavicular joints, characterized by joint space narrowing and subchondral sclerosis, and mild marginal osteophytosis and subacromial spurring. Qualitative osteopenia. Imaged right lung field is clear. Atherosclerotic vascular calcifications in the axilla. RAD/Shoulder min 2 Views IMPRESSION: No acute fracture or dislocation. Mild-moderate arthrosis of the right glenohumeral and AC joints. Reading Location: [id number]
--- NOTE | 2025-06-02 21:05 | NURSING ---
Dr. Al updated on right shoulder xray results via phone call, IMPRESSION: No acute fracture or dislocation,.Mild-moderate arthrosis of the right glenohumeral and AC joints. responded OK.
[2025-06-02] MEDS: Senna/Docusate Sodium 1 Tablet 2 TABLET PO (21:43)
[2025-06-03 08:45] VITALS: PULSE 62
[2025-06-03] MEDS: Metoprolol(XL)Succ 25 MG Tablet 12.5 MG PO (08:45)
[2025-06-03] MEDS: Lactobacillis Acidophilus 1 CAP PO (08:45)
[2025-06-03 08:50] VITALS: BP 122/47; PULSE 62; RESP 16; TEMP 36.3; O2SAT 99
--- NOTE | 2025-06-03 11:49 | NURSING ---
Public Housing Interviewer Note; Activity Asset: Key Hong has been on TCU in the past and remains independent in her choice of daily activities. She has her cell to call family, reads, watches tv, enjoys puzzles, word puzzles and coloring. Was given a small mirror to use while here. Staff will encourage social activities, remind her of weekly activities and respect her right to say no.
--- NOTE | 2025-06-03 13:56 | NURSING ---
Spoke with staff at Dr. Irene's office, they will reach out to him to clarify WB status and call back. Left note for Dr. Al to see about consulting Dr. Irene to follow her here.
--- NOTE | 2025-06-03 14:35 | WOUNDNOTE ---
wound photo: right lateral heel
--- NOTE | 2025-06-03 14:35 | WOUNDNOTE ---
wound photo: left medial ankle
--- NOTE | 2025-06-03 14:37 | WOUNDNOTE ---
wound photo: left posterior lower leg
--- NOTE | 2025-06-03 14:38 | WOUNDNOTE ---
wound photo: left lateral foot
--- NOTE | 2025-06-03 14:38 | WOUNDNOTE ---
wound photo: left heel
[2025-06-03 16:23] LABS: Hematocrit 28.0 % (37-47); Hemoglobin 9.3 g/dL (12.0-15.0)
[2025-06-03 18:27] VITALS: BMI 26.2
[2025-06-03 19:45] VITALS: PULSE 67; RESP 21; O2SAT 98
[2025-06-03] MEDS: Senna/Docusate Sodium 1 Tablet 2 TABLET PO (21:14)
--- NOTE | 2025-06-03 21:22 | NURSING ---
Pt requested for phone to be unplugged.
[2025-06-04 06:52] VITALS: BP 142/46; PULSE 53; RESP 16; O2SAT 96
--- NOTE | 2025-06-04 07:31 | CON.PCM_ITS ---
Assessment & Plan Assessment/Plan (1) Acute osteomyelitis of left ankle: PLAN: Patient was examined and evaluated. All findings are discussed with the patient. All questions were answered to the patient satisfaction. Review of the microbiology culture and sensitivity taken on 05/20/2025 show evidence of MRSA growth. Will defer antibiotic treatment to infectious disease. Recommend infectious disease consultation with Dr. Pitt WBC: 3.8 HbA1c: 7.6 Glucose: 104 Medicine: On board, medical PT/OT: On board, rehab, strengthening Vascular: Consult pending From podiatry standpoint the patient's bilateral grafts are stable with no concern of infection. Will continue to have wound care nurse to change the dressing every other day to every 3 days as needed. Will plan to remove jacob and graft on 06/10/2025. Podiatry will continue to follow while the patient is TCU with weekly visits. If there is any questions or concerns please reach out to Dr. Irene. Thank you for the consultation. (2) Acute painful diabetic polyneuropathy: (3) Other specified peripheral vascular diseases: HPI Consult Data Date of Consult: 06/04/25 HPI Narrative Reason for Consultation: Osteomyelitis left ankle HPI Narrative: KIMBERLY NEWMAN, is a 75 F who presented to the hospital after presenting to the emergency room secondary to fall, recent MRSA bacteremia, underwent left lower extremity revascularization on 05/26/[address] Russell Clement admitted to the transitional care unit for rehabilitation, strengthening prior to discharge home. Patient has been working with PT and OT. Overall she is doing well after her revascularization. Podiatry was consulted for concern of bone infection to the left ankle status post surgical intervention to the bilateral lower extremity with Integra graft application incision bone cortex of left ankle. DOS: 05/20/2025. Patient has been getting dressing changes by wound care nurse. She denies any pain to the right or left lower extremity. She denies any new onset of trauma. Denies constitutional symptoms. No other pedal complaints at this time. [facility] Medical History (Updated 06/04/25 @ 09:[address] 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 Chronic painful diabetic polyneuropathy MRSA (methicillin resistant staph aureus) culture positive Depression Diabetes Back pain Vertigo History of pain when walking Hypertension Arthritis Wears dentures Post-menopausal Low iron High cholesterol Easy bruising Neuropathy Dietary restriction Former smoker Cardiology follow-up encounter History of torn meniscus of left knee Carotid artery stenosis Essential hypertension Skin lesion Hammer toe of left foot Osteomyelitis Chronic kidney disease, stage 3 Atherosclerosis of coronary artery of [place] heart without angina pectoris Hyperlipidemia Peripheral vascular occlusive disease Hammer toe of second toe of left foot Hallux valgus (acquired), right foot Healed ulcer of left foot on examination Chronic ulcer of left foot with fat layer exposed Delayed wound healing Malnutrition Osteomyelitis of foot 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 Methicillin resistant Staphylococcus aureus infection Chronic osteomyelitis of left foot Non-healing ulcer of right foot DM2 (diabetes mellitus, type 2) Home Medications ?Medication ?Instructions ?Recorded ?Last Taken ?Type aspirin 81 mg tablet,delayed 81 mg PO QHS blood clots 01/13/14 05/31/25 20:15 History release multivitamin with folic acid 400 1 tab PO DAILY Supple ment 01/13/14 06/01/25 09:00 History mcg tablet omega-3 fatty acids-fish oil 340 1 ea PO DAILY supplem ent 06/29/16 08/27/16 History mg-1,000 mg capsule ferrous sulfate 325 mg (65 mg 325 mg PO DAILY SUPPLEME NT 08/15/18 06/01/25 12:50 History iron) tablet ascorbic acid (vitamin C) 500 mg 1,000 mg PO LUNCH Sup plement 11/25/20 06/01/25 12:50 History tablet calcium carbonate (Calcium 600) 600 mg PO DAILY supple ment 12/29/21 06/01/25 09:00 History clopidogrel 75 mg tablet 75 mg PO DAILY Blood clots # 90 tabs 10/23/24 06/01/25 09:00 Rx Lactobacillus acidophilus 600 mg PO QDAY gi 03/07/25 0 06/01/25 09:00 History (Acidophilus capsule) pregabalin 100 mg capsule 100 mg PO TID nerve pain 06/01/25 12:50 History simvastatin 20 mg tablet 20 mg PO QHS cholesterol #30 tabs 03/23/25 05/31/25 20:15 Rx nystatin 100,000 unit/gram topical 1 applic topical BI D PRN rash 05/07/25 Unknown History powder ([facility]) acetaminophen 650 mg 650 mg PO Q12H PRN pain 04/20 Unknown History tablet,extended release amlodipine 5 mg tablet 5 mg PO DAILY HTN #90 tabs 0 05/12/25 06/01/25 09:00 Rx metoprolol succinate 25 mg 12.5 mg (1/2 x 25 mg) PO DA FABIAN 05/12/25 06/01/25 09:00 Rx tablet,extended release 24 hr HEART RATE #45 tabs glimepiride 2 mg tablet 2 mg PO BID Diabetes 5 Unknown History gabapentin (bulk) 100 % powder 2 ea topical BID Pain # 0 grams 05/28/25 06/01/25 09:00 Rx linezolid 600 mg tablet 600 mg PO BID Antibiotic #21 tabs 05/28/25 Unknown Rx menthol 0.44 %-zinc oxide 20.6 % 1 applic topical BID Skin 05/28/25 Unknown Rx topical ointment (Calmoseptine) Irritation #0 grams oxycodone 5 mg tablet 5 mg PO Q4H PRN PRN Pain Sco re 05/28/25 05/30/25 Rx 4-10 #0 tabs Allergy/AdvReac Type Severity Reaction Status Date / Time Sulfa (Sulfonamide Allergy Unknown Verified 05/22/25 11:05 Antibiotics) Family History Father CAD (coronary artery disease) Heart disease Hypertension CVA (cerebral vascular accident) Mother COPD (chronic obstructive pulmonary disease) Hypertension Heart disease Heart failure Surgical History History of cardiac catheterization History of colonoscopy History of foot surgery History of repair of left rotator cuff History of total left knee replacement (~2014) History of angioplasty of peripheral vessel (~2012) amputation left toe History of left heart catheterization (~01/20/14) Social History household members: none Smoking Status: Former smoker how long ago did patient quit smokin years ago alcohol intake: never substance use type: does not use caffeine: No Physical Exam Narrative Neurovascular status unchanged. Evidence of Integra bilayer graft secured with jacob to the by the lower extremity. No erythema or proximal streaking is appreciated. Skin temp gradient warm to warm from proximal ankles to distal digit bilateral. No pain to palpation to any of the skin grafts and vital extremity. No pain with calf raise. Lab / Micro Data 06/03/25 15:51 06/02/25 05:27 Labs: Laboratory Results - last 24 hr 06/03/25 15:51: Hgb 9.3 L, Hct 28.0 L 06/03/25 17:13: POC Glucose 187 H 06/04/25 05:59: POC Glucose 104 Micro: Microbiology 06/03/25 Unknown Stool Stool Occult Blood ([facility]) - Final Occult Blood Positive
[2025-06-04 08:37] VITALS: BP 102/39; PULSE 54; RESP 17; TEMP 37.1; O2SAT 99
[2025-06-04 10:00] VITALS: PULSE 54; RESP 18; O2SAT 99
[2025-06-04] MEDS: Lactobacillis Acidophilus 1 CAP PO (10:15)
[2025-06-04] MEDS: Neuropathy Pain Cream Compound 60 CLICK TUBE TOPICAL (10:16)
[2025-06-04 10:17] VITALS: BP 102/39; PULSE 54
[2025-06-04] MEDS: Senna/Docusate Sodium 1 Tablet 2 TABLET PO (10:17)
[2025-06-04] MEDS: Metoprolol(XL)Succ 25 MG Tablet 6.25 MG PO (10:17)
--- NOTE | 2025-06-04 13:45 | CON.PCM.ID_ITS ---
Assessment & Plan Assessment/Plan (1) Acute osteomyelitis of left ankle: PLAN: Reviewed labs, imaging, path, and hospital records. Path was neg for osteo. Completed 2 weeks po linezolid and grafts doing well. With sulfa allergy and MRSA I to doxy, no good oral options for long-term treatment. I think to continue with plan from prior ID Dr. Polk is reasonable at this point to monitor off of abx. Will follow, thank you HPI Consult Data Date of Consult: 06/04/25 HPI Narrative Reason for Consultation: (+) cx HPI Narrative: KIMEBRLY NEWMAN, is a 75 F who was transferred to TCU. Had surgery 05/20/[address] Irene. Ankle bone cx with MRSA, actino, prevotella, and anaerobes. Path was neg for osteo. Given 2 week course po linezolid. Per Dr. Irene today, grafts on BLE are stable with no sign of infection. She is feeling well, no fever, no n/v/d. Full ROS performed and neg except as noted above. 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 Chronic painful diabetic polyneuropathy MRSA (methicillin resistant staph aureus) culture positive Depression Diabetes Back pain Vertigo History of pain when walking Hypertension Arthritis Wears dentures Post-menopausal Low iron High cholesterol Easy bruising Neuropathy Dietary restriction Former smoker Cardiology follow-up encounter History of torn meniscus of left knee Carotid artery stenosis Essential hypertension Skin lesion Hammer toe of left foot Osteomyelitis Chronic kidney disease, stage 3 Atherosclerosis of coronary artery of [place] heart without angina pectoris Hyperlipidemia Peripheral vascular occlusive disease Hammer toe of second toe of left foot Hallux valgus (acquired), right foot Healed ulcer of left foot on examination Chronic ulcer of left foot with fat layer exposed Delayed wound healing Malnutrition Osteomyelitis of foot 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 Methicillin resistant Staphylococcus aureus infection Chronic osteomyelitis of left foot Non-healing ulcer of right foot DM2 (diabetes mellitus, type 2) Home Medications ?Medication ?Instructions ?Recorded ?Last Taken ?Type aspirin 81 mg tablet,delayed 81 mg PO QHS blood clots 01/13/14 05/31/25 20:15 History release multivitamin with folic acid 400 1 tab PO DAILY Supple ment 01/13/14 06/01/25 09:00 History mcg tablet omega-3 fatty acids-fish oil 340 1 ea PO DAILY supplem ent 06/29/16 08/27/16 History mg-1,000 mg capsule ferrous sulfate 325 mg (65 mg 325 mg PO DAILY SUPPLEME NT 08/15/18 06/01/25 12:50 History iron) tablet ascorbic acid (vitamin C) 500 mg 1,000 mg PO LUNCH Sup plement 11/25/20 06/01/25 12:50 History tablet calcium carbonate (Calcium 600) 600 mg PO DAILY supple ment 12/29/21 06/01/25 09:00 History clopidogrel 75 mg tablet 75 mg PO DAILY Blood clots # 90 tabs 10/23/24 06/01/25 09:00 Rx Lactobacillus acidophilus 600 mg PO QDAY gi 03/07/25 0 06/01/25 09:00 History (Acidophilus capsule) pregabalin 100 mg capsule 100 mg PO TID nerve pain 06/01/25 12:50 History simvastatin 20 mg tablet 20 mg PO QHS cholesterol #30 tabs 03/23/25 05/31/25 20:15 Rx nystatin 100,000 unit/gram topical 1 applic topical BI D PRN rash 05/07/25 Unknown History powder ([facility]) acetaminophen 650 mg 650 mg PO Q12H PRN pain 04/20 Unknown History tablet,extended release amlodipine 5 mg tablet 5 mg PO DAILY HTN #90 tabs 0 05/12/25 06/01/25 09:00 Rx metoprolol succinate 25 mg 12.5 mg (1/2 x 25 mg) PO DA FABIAN 05/12/25 06/01/25 09:00 Rx tablet,extended release 24 hr HEART RATE #45 tabs glimepiride 2 mg tablet 2 mg PO BID Diabetes 5 Unknown History gabapentin (bulk) 100 % powder 2 ea topical BID Pain # 0 grams 05/28/25 06/01/25 09:00 Rx linezolid 600 mg tablet 600 mg PO BID Antibiotic #21 tabs 05/28/25 Unknown Rx menthol 0.44 %-zinc oxide 20.6 % 1 applic topical BID Skin 05/28/25 Unknown Rx topical ointment (Calmoseptine) Irritation #0 grams oxycodone 5 mg tablet 5 mg PO Q4H PRN PRN Pain Sco re 05/28/25 05/30/25 Rx 4-10 #0 tabs Allergy/AdvReac Type Severity Reaction Status Date / Time Sulfa (Sulfonamide Allergy Unknown Verified 05/22/25 11:05 Antibiotics) Family History Father CAD (coronary artery disease) Heart disease Hypertension CVA (cerebral vascular accident) Mother COPD (chronic obstructive pulmonary disease) Hypertension Heart disease Heart failure Surgical History History of cardiac catheterization History of colonoscopy History of foot surgery History of repair of left rotator cuff History of total left knee replacement (~2014) History of angioplasty of peripheral vessel (~2012) amputation left toe History of left heart catheterization (~01/20/14) Social History household members: none Smoking Status: Former smoker how long ago did patient quit smokin years ago alcohol intake: never substance use type: does not use caffeine: No Physical Exam Const alert, oriented x3 and no apparent distress General Appearance: cooperative HEENT normocephalic and head/scalp atraumatic Eyes PERRL and EOMs intact bilaterally Neck supple and No nodes Resp normal air movement and clear to auscultation bilaterally Cardio regular rate and regular rhythm GI soft to palpation, non-tender and non-distended Extremity General Extremity: Negative for edema Skin Skin Narrative: reviewed wound photos Neuro CN's II-XII intact bilaterally Lab / Micro Data Attestation: I reviewed the patient's lab results. 06/03/25 15:51 06/02/25 05:27 Labs: Laboratory Results - last 24 hr 06/03/25 15:51: Hgb 9.3 L, Hct 28.0 L 06/03/25 17:13: POC Glucose 187 H 06/04/25 05:59: POC Glucose 104 Micro: Microbiology 06/03/25 Unknown Stool Stool Occult Blood (ERICA) - Final Occult Blood Positive
--- NOTE | 2025-06-04 14:30 | PCM.PN.DRR ---
Documented by User: Evelin Rosado 06/04/25 15:06 TCU RX Drug Regimen Review Subjective/Objective Subjective/Objective Subjective: TCU Admission. 75 YOF presented to the ER with a fall. Hospitalized for fall, recent mrsa bacteremia, underwent left lower extremity revascularization 05/26/[address] Clement. Admitted to TCU with debility for strengthening and rehabilitation. Objective: Allergies Sulfa (Sulfonamide Antibiotics) Allergy (Verified 05/22/25 11:05) Unknown doesn't remember/ allergy noted as a child Current Medications Generic Name Dose Route Start Last Admin Trade Name Freq PRN Reason Stop Dose Admin Acetaminophen 1,000 mg 06/01/25 19:57 06/04/25 10:18 Acetaminophen 500 Mg Tablet PO 1,000 mg Q6H PRN PRN Administration Pain Score 1-3 Ascorbic Acid 1,000 mg 06/02/25 12:00 06/04/25 12:41 Ascorbic Acid 500 Mg Tablet PO 1,000 mg LUNCH HADLEY Administration Aspirin 81 mg 06/02/25 08:00 06/04/25 10:15 Aspirin 81 Mg Tab.Chew PO 81 mg BREAKFAST HADLEY Administration Atorvastatin Calcium 10 mg 06/01/25 22:00 06/03/25 21:13 Atorvastatin Calcium 10 Mg Tablet PO 10 mg QHS HADLEY Administration Calamine/Phenol 1 applic 06/01/25 22:00 06/04/25 10:15 Menthol/Lanolin/Calamine/Znox 113 Gm Tube TOPICAL 1 applic BID HADLEY Administration Protocol Calcium Carbonate 500 mg 06/02/25 10:00 06/04/25 10:18 Calcium Carbonate 500 Mg Tablet PO 500 mg DAILY HADLEY Administration Clopidogrel Bisulfate 75 mg 06/02/25 10:00 06/04/25 10:16 Clopidogrel Bisulfate 75 Mg Tablet PO 75 mg DAILY HADLEY Administration Compound Med 2 click 06/01/25 22:00 06/04/25 10:16 Neuropathy Pain Cream Compound 60 Click Tube TOPICAL 2 click BID HADLEY Administration Protocol Ferrous Sulfate 325 mg 06/02/25 12:00 06/04/25 12:42 Ferrous Sulfate 325 Mg Tablet PO 325 mg DAILY@1200 HADLEY Administration Glimepiride 2 mg 06/02/25 08:00 06/04/25 10:15 Glimepiride 2 Mg Tablet PO 2 mg BIDCM HADLEY Administration Magnesium Citrate 300 ml 06/01/25 20:01 Magnesium Citrate 300 Ml PO DAILY PRN Constipation Metoprolol Succinate 6.25 mg 06/04/25 10:00 06/04/25 10:17 Metoprolol(Xl)Succ 25 Mg Tablet PO 6.25 mg DAILY HADLEY Administration Protocol Multivitamins 1 tablet 06/02/25 08:00 06/04/25 10:15 Multivitamins,Therapeutic Tablet PO 1 tablet DAILYCM HADLEY Administration Nystatin 1 applic 06/01/25 18:41 Nystatin Powder 15gm Bottle TOPICAL BID PRN rash Protocol [id number] Ethyl Esters 1 gm 06/02/25 10:00 06/04/25 10:16 [place]-3 Acid Ethyl Esters 1 Gm Capsule PO 1 gm DAILY HADLEY Administration Oxycodone HCl 5 mg 06/01/25 18:41 06/03/25 19:51 Oxycodone 5 Mg Tablet PO 5 mg Q4H PRN PRN Administration Pain Score 4-10 Pregabalin 100 mg 06/01/25 22:00 06/04/25 13:59 Pregabalin 50 Mg Capsule PO 100 mg TID HADLEY Administration Senna/Docusate Sodium 2 tablet 06/01/25 22:00 06/04/25 10:17 Senna/Docusate Sodium 1 Tablet PO 2 tablet BID HADLEY Administration Sodium Chloride 10 - 40 ml 06/02/25 04:50 06/02/25 10:41 0.9% Saline Lock 10 Ml Syringe IV 10 ml UD PRN Administration SALINE FLUSH Tuberculin PPD 0.1 ml 06/09/25 10:00 Tuberculin,Purif.Prot.Deriv. 50 Tu/Ml Vial ID 06/09/25 10:01 X1 ONE Problem List Other specified peripheral vascular diseases (Acute) Acute painful diabetic polyneuropathy (Acute) Acute osteomyelitis of left ankle (Acute) Bacteremia (Acute) Weakness (Acute) Essential (primary) hypertension (Acute) Type 2 diabetes mellitus with hyperglycemia (Acute) PAOD (peripheral arterial occlusive disease) (Acute) Debility (Acute) Hyperlipidemia (Chronic) Diabetes mellitus with polyneuropathy (Chronic) Vital Signs Temp Pulse Resp BP Pulse Ox O2 Del Method 98.8 F 54 L 18 102/39 L 99 Room Air 06/04/25 08:37 06/04/25 10:17 06/04/25 10:00 06/04/25 10:17 06/04/25 10:00 06/04/25 10:00 Oxygen Delivery Method Room Air Weight: 73.709 kg Body Mass Index (BMI) 26.2 Sodium 137 mmol/L (133-145) 06/02/25 05:27 Potassium 4.5 mmol/L (3.3-5.1) 06/02/25 05:27 Chloride 105 mmol/L (98-108) 06/02/25 05:27 Carbon Dioxide 21.2 mmol/L (21.0-32.0) 06/02/25 05:27 Anion Gap 11 (5-15) 06/02/25 05:27 BUN 76 mg/dL (4-19) H 06/02/25 05:27 Creatinine 1.22 mg/dL (0.70-1.20) H 06/02/25 05:27 Est GFR (MDRD) Non-Af 47 (>60) L 06/02/25 05:27 BUN/Creatinine Ratio 62.0 RATIO (10-20) H 06/02/25 05:27 Glucose 181 mg/dL (70-99) H 06/02/25 05:27 Assessment/Plan: 1. Pain: acetaminophen 1000mg PO Q6 PRN pain 1-3 (2 doses, pain scores 4 and 6 in the leg) and oxycodone 5mg PO Q4H PRN pain 4-10 (1 dose, pain score 6 in buttock). Please continue to monitor for increased pain, PRN usage, constipation, respiratory depression, LFTs and falls (Ian). 2. Bowel: senna/docusate 2T PO BID and magnesium citrate 300mL PO daily PRN constipation. No PRN doses given. Please continue to monitor for constipation and PRN usage. Last documented bowel movement was 06/03/25. 3. Hypertension: metoprolol succinate 6.25mg PO daily. Please continue to monitor BP (range 102/39 - 137/51), HR (range 53-67), fatigue. 4. POAD s/p LLE revascularization: aspirin 81mg PO breakfast and clopidogrel 75mg PO daily. Please continue to monitor for S/S of bleeding, hemoglobin (last 9.3g/dL), bruising. 5. Iron deficiency anemia: ascorbic acid 1000mg PO daily and ferrous sulfate 325mg PO daily. Please continue to monitor hemoglobin (last 9.3g/dL), dark stools, constipation and iron studies (last 4/25/25). 6. Hyperlipidemia: atorvastatin 10mg PO QHS and omega-3 1gm PO daily. Please continue to monitor lipid panel (last 03/13/25), LFT (last 06/01/25) and muscle pain. 7. Diabetic polyneuropathy: pregabalin 100mg PO TID and Neuropathy pain cream 2 clicks topical BID. Please continue to monitor for confusion, renal function, and falls/fractures (BEERs). 8. Diabetes Mellitus II: glimepiride 2mg PO BID. Please continue to monitor hemoglobin A1c (last 7.6% 05/18/25), glucose (range 104-265 mg/dL), S/S of hypoglycemia. 9. Indigestion: calcium carbonate 500mg PO daily. Please continue to monitor calcium (last 9mg/dL). 10. GI prophylaxis: lactobacillus 1C PO daily. Please continue to monitor for diarrhea. 11. Nutrition: multivitamin 1T PO daily. Please continue to monitor. 12. Skin irritation/Tinea Corporis: Nystatin topical bid and Calomseptine topical bid. Please continue to monitor. Assessment/Plan for indications treated with psychotropic medications: Resident is not prescribed scheduled or prn psychotropic medications at the time of this drug regimen review. Medical chart and medication regimen reviewed. The following medication irregularities or issues were identified: None Date Date of Note: 06/04/25 Documented by User: Dr. Phong Al MD 06/04/25 15:59 TCU RX Drug Regimen Review Provider Comments Provider responsibility Provider Comments to Recommendations by Pharmacy Agree
--- NOTE | 2025-06-04 14:55 | CASEMGMT ---
Social Work SW met with patient to complete initial assessment. Pt known to this worker from previous stay. Verified contacts. Patient confirmed code status as full code. Educated to [facility] insurance with [employer] 06/04 and continued stay is not guaranteed with each review; required to provide a 3-day notice for DC. Pt's goal is to return home alone. SW will continue to follow for DC planning. Katarina Bunch ASSORTMENT PLANNER CHIEF CLERK
--- NOTE | 2025-06-04 15:30 | CHAPLAIN ---
Type of Pastoral Visit ___ Initial Visit _x__ Follow-up Visit ___ On-call Visit ___ General Patient Visit ___ Spiritual Assessment ___ Family Conference ___ Bereavement ___ Rapid Response ___ Code Blue ___ Other (describe below) Pastoral Care Referral From _x__ Patient ___ Family ___ Nurse ___ Physician ___ Advisor Consultant ___ Radiology Technician ___ Other (describe below) Sacrament/Intervention ___ Active listening ___ Anointing ___ Orthodoxy ___ Bereavement ___ Communion ___ Karla exploration ___ ___ Life review ___ Prayer ___ Reconciliation ___ Sacrament of Sick _x__ Supportive presence ___ Wedding ___ Other (describe below) Pastoral Comments patient has been seen recently in ICU; pt is looking better and states some improvement but also some concerns for her future; her brother is in the room and they are working on paying her bills at this time; short visit with offer of support; pt states that she is okay for now
[2025-06-04 16:00] VITALS: BP 127/54; PULSE 57; RESP 18; TEMP 36.9; O2SAT 99
--- NOTE | 2025-06-04 18:05 | EX.PCM.CON.G ---
HPI Consult Data Date of Consult: 06/04/25 HPI Narrative Reason for Consultation: Anemia HPI Narrative: 75-year-old lady with past medical history signal for PAD with previous angioplasty, diabetes mellitus type 2,Recent debridement of surgical debridement of chronic bilateral lower extremity DFU's admitted with progressive generalized weakness she also has a history of bilateral lower extremity ulcerations and wounds in setting of severe peripheral vascular disease and diabetes. She had a skin graft done on 05 20. She developed peripheral vascular disease in her arteries and veins. She was seen by Dr. Russell Clement and underwent left femoral endarterectomy along with left [place] peroneal bypass with left sartorius flap on 05/26/2025. Since being in the TCU she has had a drop in her hemoglobin. She has baseline anemia chronic disease but she has been also having some abdominal pain. [facility] Medical History (Updated 06/04/25 @ 18:[address] 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 Chronic painful diabetic polyneuropathy MRSA (methicillin resistant staph aureus) culture positive Depression Diabetes Back pain Vertigo History of pain when walking Hypertension Arthritis Wears dentures Post-menopausal Low iron High cholesterol Easy bruising Neuropathy Dietary restriction Former smoker Cardiology follow-up encounter History of torn meniscus of left knee Carotid artery stenosis Essential hypertension Skin lesion Hammer toe of left foot Osteomyelitis Chronic kidney disease, stage 3 Atherosclerosis of coronary artery of [place] heart without angina pectoris Hyperlipidemia Peripheral vascular occlusive disease Hammer toe of second toe of left foot Hallux valgus (acquired), right foot Healed ulcer of left foot on examination Chronic ulcer of left foot with fat layer exposed Delayed wound healing Malnutrition Osteomyelitis of foot 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 Methicillin resistant Staphylococcus aureus infection Chronic osteomyelitis of left foot Non-healing ulcer of right foot DM2 (diabetes mellitus, type 2) Home Medications ?Medication ?Instructions ?Recorded ?Last Taken ?Type aspirin 81 mg tablet,delayed 81 mg PO QHS blood clots 01/13/14 05/31/25 20:15 History release multivitamin with folic acid 400 1 tab PO DAILY Supplement 01/13/14 06/01/25 09:00 History mcg tablet omega-3 fatty acids-fish oil 340 1 ea PO DAILY supplement 06/29/16 08/27/16 History mg-1,000 mg capsule ferrous sulfate 325 mg (65 mg 325 mg PO DAILY SUPPLEMENT 08/15/18 06/01/25 12:50 History iron) tablet ascorbic acid (vitamin C) 500 mg 1,000 mg PO LUNCH Supplement 11/25/20 06/01/25 12:50 History tablet calcium carbonate (Calcium 600) 600 mg PO DAILY supplement 12/29/21 06/01/25 09:00 History clopidogrel 75 mg tablet 75 mg PO DAILY Blood clots #90 tabs 10/23/24 06/01/25 09:00 Rx Lactobacillus acidophilus 600 mg PO QDAY gi 03/07/25 06/01/25 09:00 History (Acidophilus capsule) pregabalin 100 mg capsule 100 mg PO TID nerve pain 03/07/25 06/01/25 12:50 History simvastatin 20 mg tablet 20 mg PO QHS cholesterol #30 tabs 03/23/25 05/31/25 20:15 Rx nystatin 100,000 unit/gram topical 1 applic topical BID PRN rash 05/07/25 Unknown History powder ([facility]) acetaminophen 650 mg 650 mg PO Q12H PRN pain 05/08/25 Unknown History tablet,extended release amlodipine 5 mg tablet 5 mg PO DAILY HTN #90 tabs 05/12/25 06/01/25 09:00 Rx metoprolol succinate 25 mg 12.5 mg (1/2 x 25 mg) PO DAILY 05/12/25 06/01/25 09:00 Rx tablet,extended release 24 hr HEART RATE #45 tabs glimepiride 2 mg tablet 2 mg PO BID Diabetes 05/18/25 Unknown History gabapentin (bulk) 100 % powder 2 ea topical BID Pain #0 grams 05/28/25 06/01/25 09:00 Rx linezolid 600 mg tablet 600 mg PO BID Antibiotic #21 tabs 05/28/25 Unknown Rx menthol 0.44 %-zinc oxide 20.6 % 1 applic topical BID Skin 05/28/25 Unknown Rx topical ointment (Calmoseptine) Irritation #0 grams oxycodone 5 mg tablet 5 mg PO Q4H PRN PRN Pain Score 05/28/25 05/30/25 Rx 4-10 #0 tabs Allergy/AdvReac Type Severity Reaction Status Date / Time Sulfa (Sulfonamide Allergy Unknown Verified 05/22/25 11:05 Antibiotics) Family History Father CAD (coronary artery disease) Heart disease Hypertension CVA (cerebral vascular accident) Mother COPD (chronic obstructive pulmonary disease) Hypertension Heart disease Heart failure Surgical History History of cardiac catheterization History of colonoscopy History of foot surgery History of repair of left rotator cuff History of total left knee replacement (~2014) History of angioplasty of peripheral vessel (~2012) amputation left toe History of left heart catheterization (~01/20/14) Social History household members: none Smoking Status: Former smoker how long ago did patient quit smokin years ago alcohol intake: never substance use type: does not use caffeine: No ROS Constitutional Constitutional: Denies fatigue, fever(s), poor appetite, weight gain or weight loss Gastrointestinal Gastrointestinal: Denies belching, bloating, change in bowel habits, change in stool character, chewing difficulty, coffee ground emesis, constipation, cramping, diarrhea, dyspepsia, dysphagia, early satiety, excessive flatus, fecal incontinence, heartburn, hematemesis, hematochezia, hemorrhoids, loose stools, melena, nausea, odynophagia, rectal bleeding, tenesmus, vomiting or weight changes Physical Exam Const alert, oriented x3, no apparent distress and healthy appearing General Appearance: cooperative GI normal to inspection, nondistended, normoactive bowel sounds, soft to palpation, non-tender and non-distended Percussion: normal to percussion Rectal Exam: deferred Lab / Micro Data 06/03/25 15:51 06/02/25 05:27 Labs: Laboratory Results - last 24 hr 06/04/25 05:59: POC Glucose 104 06/04/25 16:25: POC Glucose 202 H Micro: Microbiology 06/03/25 Unknown Stool Stool Occult Blood (ERICA) - Final Occult Blood Positive Assessment & Plan Assessment/Plan (1) Anemia: PLAN: Plan Patient's hemoglobin went down to 7.8 and she received 1 unit packed red blood cells went up to 9.3. Since she needs to go on anticoagulation due to severe peripheral vascular disease and dual antiplatelet therapy. She should undergo an upper endoscopy evaluate upper GI tract. Please keep her n.p.o. past midnight. Charges/Coding Visit Charges Inpatient E&M: 81556 [facility] Init L2
[2025-06-05 08:09] VITALS: BP 137/51; PULSE 56; RESP 18; TEMP 36.6; O2SAT 99
[2025-06-05 08:14] VITALS: BP 137/51; PULSE 56
[2025-06-05] MEDS: Metoprolol(XL)Succ 25 MG Tablet 6.25 MG PO (08:14)
[2025-06-05 10:00] VITALS: PULSE 56; RESP 17; O2SAT 99
--- NOTE | 2025-06-05 13:48 | CASEMGMT ---
Social Work SW completed BIMS () and PHQ-2 () for MDS assessment. Katarina Bunch VP PURCHASING TEAR DOWN MATCHER
[2025-06-05 16:00] VITALS: BP 125/45; PULSE 64; RESP 18; TEMP 36.6; O2SAT 95
[2025-06-05 16:27] VITALS: BP 125/45; PULSE 64; RESP 18; TEMP 36.6; O2SAT 95
--- NOTE | 2025-06-05 17:06 | NURSING ---
patient leaving floor for procedure
[2025-06-05 19:25] VITALS: BP 137/50; PULSE 61; RESP 18; TEMP 36.6; O2SAT 99
[2025-06-06 09:20] VITALS: BP 109/43; PULSE 58; RESP 16; TEMP 36.8; O2SAT 97
[2025-06-06] MEDS: Lactobacillis Acidophilus 1 CAP PO (09:25)
[2025-06-06 09:26] VITALS: PULSE 62
[2025-06-06] MEDS: Metoprolol(XL)Succ 25 MG Tablet 6.25 MG PO (09:26)
[2025-06-06] MEDS: Neuropathy Pain Cream Compound 60 CLICK TUBE TOPICAL (09:28)
[2025-06-06 15:57] VITALS: PULSE 78; RESP 16; O2SAT 97
--- NOTE | 2025-06-06 16:07 | NURSING ---
Changed pt dressings to BLE's per order. encouraged pt to elevate legs while up in chair and pt refused. pt did let this nurse elevated legs slightly off floor in chair. encouraged pt to elevate legs in bed at night, pt stated oh no, I don't like it the pillows, blankets and sheet gets tangled around my legs
[2025-06-07 09:18] VITALS: BP 94/43; PULSE 84; RESP 18; TEMP 36.5; O2SAT 93
[2025-06-07 09:22] VITALS: BP 94/43; PULSE 84
[2025-06-07] MEDS: Lactobacillis Acidophilus 1 CAP PO (09:22)
[2025-06-07] MEDS: Senna/Docusate Sodium 1 Tablet 2 TABLET PO (09:23)
[2025-06-07] MEDS: Neuropathy Pain Cream Compound 60 CLICK TUBE TOPICAL (21:12)
[2025-06-07 21:20] VITALS: PULSE 58; RESP 16; O2SAT 94
[2025-06-08 08:38] VITALS: BP 97/43; PULSE 58; RESP 16; TEMP 36.7; O2SAT 99
[2025-06-08 08:40] VITALS: PULSE 58
[2025-06-08] MEDS: Lactobacillis Acidophilus 1 CAP PO (08:42)
--- NOTE | 2025-06-08 08:53 | NURSING ---
Radar Signal Processing Engineer Note; MDS for 06/08/2025 Complete
[2025-06-09 06:01] LABS: Hematocrit 26.5 % (37-47); Hemoglobin 8.5 g/dL (12.0-15.0); Immature Granulocytes Count 0.060 X10^3/uL (0.0-0.0); Mean Corp Hgb Conc 32.1 g/dL (32-36); Mean Corpuscular Volume 92.0 fL (81-99); Mean Platelet Vol. 12.0 fl (6.2-12.0); NRBC Flagged by Analyzer 0 % (0-5); Platelet Count 156 K/mm3 (150-450); RBC Distribution Width CV 14.5 % (11.6-14.6); RBC Distribution Width SD 48.9 fl (35.1-43.9); Red Blood Count 2.88 M/mm3 (4.2-5.4); White Blood Count 7.7 K/mm3 (4.4-11.0)
[2025-06-09 06:19] LABS: AST(SGOT) 18 U/L (<=31); Alanine Aminotransfer ALT/SGPT 11 U/L (<=34); Albumin, Serum 2.7 g/dL (3.4-4.8); Alkaline Phosphatase 69 U/L (35-104); Anion Gap 8 (5-15); BUN 49 mg/dL (4-19); BUN/Creat Ratio 48.8 RATIO (10-20); Calcium,Total 8.8 mg/dL (7.6-11.0); Carbon Dioxide 25.0 mmol/L (21.0-32.0); Chloride 108 mmol/L (98-108); Estimated Creatinine Clearance 51.46 ml/min (50-250); Globulin 2.4 g/dL (2.2-4.2); Glucose 84 mg/dL (70-99); Potassium 4.4 mmol/L (3.3-5.1)
[2025-06-09 08:38] VITALS: BP 120/58; PULSE 75; RESP 17; TEMP 36.9; O2SAT 99
[2025-06-09 08:42] VITALS: PULSE 75
[2025-06-09] MEDS: Metoprolol(XL)Succ 25 MG Tablet 6.25 MG PO (08:42)
[2025-06-09] MEDS: Lactobacillis Acidophilus 1 CAP PO (08:42)
[2025-06-09] MEDS: Tuberculin,Purif.prot.deriv. 50 TU/ML Vial 0.1 ML ID (11:47)
--- NOTE | 2025-06-09 12:01 | NURSING ---
Patient unable to make Ortho appt. for 06/11 d/t transportation availability. Call placed to [facility]. Rescheduled appt. for 06/15/25 @[address] Vogel. Patient updated and appreciative.
[2025-06-09 14:15] VITALS: BMI 26.0
--- NOTE | 2025-06-09 16:28 | WOUNDNOTE ---
wound photo: right lateral heel
--- NOTE | 2025-06-09 16:29 | WOUNDNOTE ---
wound photo: left medial ankle/lower leg
--- NOTE | 2025-06-09 16:30 | WOUNDNOTE ---
wound photo: left medial lower leg
--- NOTE | 2025-06-09 16:31 | WOUNDNOTE ---
wound photo: left lateral foot
--- NOTE | 2025-06-09 16:32 | WOUNDNOTE ---
wound photo: left heel
[2025-06-09 20:00] VITALS: PULSE 78; RESP 16; O2SAT 97
[2025-06-10 04:18] VITALS: PULSE 76; RESP 16; O2SAT 96
--- NOTE | 2025-06-10 09:52 | MDS.RN ---
Information for the MDS was obtained from review of the clinical record, interview of resident, staff, and direct observation of resident?s care.
[2025-06-10 10:21] VITALS: BP 134/44; PULSE 88; RESP 17; TEMP 38.5; O2SAT 98
[2025-06-10] MEDS: Lactobacillis Acidophilus 1 CAP PO (10:40)
[2025-06-10 10:42] VITALS: BP 134/44; PULSE 88
[2025-06-10] MEDS: Metoprolol(XL)Succ 25 MG Tablet 6.25 MG PO (10:42)
[2025-06-10 11:47] LABS: Mucous, Urine 0 SEEN /hpf (<or=2+); Red Blood Cells-Urine 0 SEEN /hpf (0-5)
[2025-06-10 11:52] LABS: Color, Urine Yellow (Yellow); Glucose, Dipstick Normal (Normal); Ketone-Dipstick Negative (Negative); Leukocyte Esterase-Dipstick 500 /ul (Negative); Nitrite-Dipstick Positive (Negative); Occult Blood-Urine 50 /ul (Negative); Protein-Dipstick 30 mg/dl (Negative); Specific Gravity, Urine 1.015 (1.002-1.030); Urine Bilirubin Dipstick Negative (Negative)
[2025-06-10 11:59] LABS: Hematocrit 25.7 % (37-47); Hemoglobin 8.3 g/dL (12.0-15.0); Immature Granulocytes Count 0.030 X10^3/uL (0.0-0.0); Mean Corp Hgb Conc 32.3 g/dL (32-36); Mean Corpuscular Volume 91.8 fL (81-99); Mean Platelet Vol. 12.0 fl (6.2-12.0); NRBC Flagged by Analyzer 0 % (0-5); Platelet Count 169 K/mm3 (150-450); RBC Distribution Width CV 14.7 % (11.6-14.6); RBC Distribution Width SD 49.3 fl (35.1-43.9); Red Blood Count 2.80 M/mm3 (4.2-5.4); White Blood Count 8.3 K/mm3 (4.4-11.0)
[2025-06-10 12:07] LABS: Squamous Epithelial Cells - UA 0-5 SEEN /hpf (5-10)
[2025-06-10 12:27] LABS: Anion Gap 11 (5-15); BUN 55 mg/dL (4-19); BUN/Creat Ratio 45.0 RATIO (10-20); Calcium,Total 8.5 mg/dL (7.6-11.0); Carbon Dioxide 22.3 mmol/L (21.0-32.0); Chloride 104 mmol/L (98-108); Estimated Creatinine Clearance 42.04 ml/min (50-250); Glucose 218 mg/dL (70-99); Potassium 3.7 mmol/L (3.3-5.1)
--- NOTE | 2025-06-10 13:31 | CASEMGMT ---
Social Work IDT met with pt's brother in person and pt's sister via conference call. Dr. Irene was actively treating pt during meeting and pt agreed for family to participate. Discussed patient's progress in PT/OT/SN/RDN. Educated to [facility] insurance with NRD 06/15 and continued stay is not guaranteed with each review. Provided pt/family with written communication of insurance process and copay coverage during stay. Pt had a change in condition with her wound today. has started pt on IV ATB, which is a covered skilled service for insurance. Family expressed concern with pt returning home d/t lack of nutrition. Pt denied MOW, but SW educated to additional home delivered meal programs that might provide better options/interest to pt. SW provided resources to brother. Brother also inquired about SNF list, if pt cannot return home. SW educated to OOP cost and part B therapy coverage. Brother stated pt could pay privately initially, but would need to be on JEREMIAH if long-term. SW provided list of SNFs in preferred geographical area, INN with pt?s insurance, including quality and resource data via [employer] Guide. SW offered to assist further. Will continue to follow. Katarina Bunch PLATE WORKER ADVENTURE THERAPIST
--- NOTE | 2025-06-10 13:36 | PCM.PN.ID ---
Physical Exam Narrative Fever overnight, not feeling well, some mild dry cough, some diarrhea. No dysuria, no headache. Wound cx collected today. Const alert and no apparent distress General Appearance: cooperative Resp normal air movement and clear to auscultation bilaterally Cardio regular rate and regular rhythm GI soft to palpation, non-tender and non-distended Extremity General Extremity: Negative for edema Skin Skin Narrative: L foot/ankle wrapped ID ID: Route of nutrition/ use of supplements: [] Nutritional Intake: [] IV Site: [] Null Catheter: [] Assessment & Plan Assessment/Plan (1) Type 2 diabetes mellitus with foot ulcer: PLAN: Recent wound cx with MRSA, Acinetobacter, prevotella, and anaerobes. Now with fever, worsened ankle wound, cxs sent. Stool and resp panel pending. Will order picc and iv vanc/ceftriaxone/flagyl. Will follow, d/w nursing and Dr. Irene
--- NOTE | 2025-06-10 13:54 | PCM.RX.CS ---
Consult Antibiotic Management Pharmacy has been consulted to manage selected antibiotic: Vancomycin Type of Intervention Type of Consult: New Suspected Infection Suspected Infection: Osteomyelitis Labs Labs: Sodium 137 mmol/L (133-145) 06/10/25 11:29 Potassium 3.7 mmol/L (3.3-5.1) 06/10/25 11:29 Chloride 104 mmol/L (98-108) 06/10/25 11:29 Carbon Dioxide 22.3 mmol/L (21.0-32.0) 06/10/25 11:29 Anion Gap 11 (5-15) 06/10/25 11:29 BUN 55 mg/dL (4-19) H 06/10/25 11:29 Creatinine 1.22 mg/dL (0.70-1.20) H 06/10/25 11:29 Est GFR (MDRD) Non-Af 47 (>60) L 06/10/25 11:29 BUN/Creatinine Ratio 45.0 RATIO (10-20) H 06/10/25 11:29 Glucose 218 mg/dL (70-99) H 06/10/25 11:29 Microbiology Microbiology: Microbiology 06/10/25 11:32 Nasal Secretion SARS-CoV-2 Antigen (Rapid) - Final 06/03/25 Unknown Stool Stool Occult Blood (ERICA) - Final Occult Blood Positive Dosing Weight Weight used for dosin.2 kg Estimated Creatinine Clearance Estimated Creatinine Clearance: 42 Goal Trough Goal Trough: 15-20 mcg/mL Pharmacy Plan for Drug Dosing Pharmacy Plan for Drug Dosing: Pharmacy Service will continue to monitor and adjust dosing as required. NEW START IV VANCOMYCIN Consulting Physician: TREMAYNE Indication: FEBRILE OVERNIGHT WITH CONCERN FOR OSTEOMYELITIS OF LEFT FOOT Goal Trough: 15-20 SrCr: 1.22 CrCl: 42 Comments: 75 YOF WITH A HISTORY OF OSTEOMYELITIS OF HER LEFT FOOT S/P LOWER LEFT REVASCULARIZATION 05/26 WITH A FEVER OVERNIGHT OF 101.3. OTHER ABX: CEFTRIAXONE, METRONIDAZOLE, CIPROFLOXACIN Cultures: BLOOD: PENDING, WOUND: PENDING Vancomycin Dose: LD: 1750 MG ONCE, MD: 500 MG Q12H WITH FIRST DOSE 06/11 @ 0200 Pending Level: 06/12 @ 0130 Date/Time Labs Ordered Labs to be done on [date and time ordered]: TROUGH ORDERED 06/12 @ 0130
--- NOTE | 2025-06-10 14:06 | PN.SURG_ITS ---
Subjective Subjective Patient is a 75-year-old diabetic female seen at bedside today for amniotic skin graft substitute removal and evaluation. Patient does admit to a fever overnight and has been treated by the medical staff at the transitional care unit. Patient does admit to not feeling well with some mild dry cough and some diarrhea. There is no evidence of dysuria or headaches. She denies any pain to the right or left lower extremity. She denies trauma. No other pedal complaints at this time. Objective Data Objective Data Vital Signs: Vital Signs Temp Pulse Resp BP Pulse Ox O2 Del Method 101.3 F H 88 17 134/44 H 98 Room Air 06/10/25 10:21 06/10/25 10:42 06/10/25 10:21 06/10/25 10:42 06/10/25 10:21 06/10/25 10:21 Oxygen Delivery Method Room Air Weight: 73.17 kg Body Mass Index (BMI) 26.0 Intake & Output: Intake and Output for Last 24 Hours 06/08/25 06/09/25 06/10/25 23:59 23:59 23:59 Intake Total 360 / 360 240 / 240 240 / 240 Balance 360 / 360 240 / 240 240 / 240 Lab / Micro Data 06/10/25 11:29 06/10/25 11:29 Labs: Laboratory Results - last 24 hr 06/09/25 16:36: POC Glucose 236 H 06/10/25 05:57: POC Glucose 148 H 06/10/25 10:14: POC Glucose 205 H 06/10/25 11:25: Urine Color Yellow, Urine Clarity Sl. Cloudy, Urine pH 6.0, Ur Specific [place] 1.015, Urine Protein 30 H, Urine Glucose (UA) Normal, Urine Ketones Negative, Urine Occult Blood 50 H, Urine Nitrite Positive H, Urine Bilirubin Negative, Urine Urobilinogen Normal, Ur Leukocyte Esterase 500 H, Urine RBC 0 SEEN, Urine WBC 25-50 SEEN, Ur Squamous Epith Cells 0-5 SEEN, Urine Bacteria 1+, Urine Mucus 0 SEEN 06/10/25 11:29: WBC 8.3, RBC 2.80 L, Hgb 8.3 L, Hct 25.7 L, MCV 91.8, MCH 29.6, MCHC 32.3, RDW Std Deviation 49.3 H, RDW Coeff of Jorgito 14.7 H, Plt Count 169, MPV 12.0, Immature Gran % (Auto) 0.400, Neut % (Auto) 81.0 H, Lymph % (Auto) 8.2 L, [place] % (Auto) 9.4, Eos % (Auto) 0.6, Baso % (Auto) 0.4, Absolute Neuts (auto) 6.8, Absolute Lymphs (auto) 0.68 L, Nucleated RBC % 0, Sodium 137, Potassium 3.7, Chloride 104, Carbon Dioxide 22.3, Anion Gap 11, BUN 55 H, Creatinine 1.22 H, Estim Creat Clear Calc 42.04 L, Est GFR (MDRD) Non-Af 47 L, BUN/Creatinine Ratio 45.0 H, Glucose 218 H, Calcium 8.5 Micro: Microbiology 06/10/25 11:32 Nasal Secretion SARS-CoV-2 Antigen (Rapid) - Final 06/03/25 Unknown Stool Stool Occult Blood (ERICA) - Final Occult Blood Positive Physical Exam Narrative Vascular: DP and PT pulses are palpable to the right and left lower extremities. CFT is brisk. Evidence of blanchable erythema appreciated to the left ankle and foot. No erythema appreciated to the right foot. Neurological: Light touch intact. Patient does respond to painful stimuli to the left lower extremity. Dermatological: Full-thickness wound to the right posterior heel stable with granular wound base no sign of infection. Multiple full-thickness wound appreciated to the left lower extremity. There is evidence of exposed tendon to the anterior lateral full-thickness wound with positive probe to periosteum at the level of the ankle with erythema to the periwound as well as to the left proximal foot and ankle, with concern of infection. Full-thickness wounds to the left lower extremity heel, leg and distal foot are stable with fibrogranular base with no concern of infection. Musculoskeletal: Mild pain to palpation to the full-thickness wound to the anterior lateral ankle. No pain to palp patient to remaining bilateral full- thickness wound. Assessment & Plan Assessment/Plan (1) Cellulitis of left ankle: PLAN: Patient was examined and evaluated. All findings were discussed with the patient. All questions were answered to the patient satisfaction. Ankle x-rays: Pending The patient's bilateral amniotic skin graft substitute were removed with staple removal. The bilateral wounds except for the ankle were granular in nature with no concern of infection. Further evaluation of the left ankle wound show evidence of exposed tendon with positive probe to bone with concern of infection. Wound wound care nurse was provided for dressing changes consisting of Dakin soaked gauze, dry sterile dressing and light compression wrap to the bilateral lower extremity. This will be changed daily. Did discuss the nature of the wound with infectious disease. Infectious disease removed forward with PICC line antibiotics, vancomycin, ceftriaxone and Flagyl. Left anterior ankle full-thickness wound culture: Pending Blood culture: Pending COVID 19: Negative Urine culture: Pending Respiratory panel: Negative WBC: 8.3 ESR: Pending CRP: Pending Medicine: On board, medical management Infectious disease: On board, IV antibiotics, vancomycin, ceftriaxone and Flagyl Podiatry will continue to follow while the patient is in house and agree with infectious disease for PICC line antibiotics. No plan for surgical intervention with the patient is TCU. I do recommend the patient staying in TCU as she is at risk for falls especially if going home alone and having to provide self-care. The patient will benefit from staying in TCU as she will continue to get stronger working with physical therapy and Occupational Therapy and having [id number] care with the nursing staff in the transitional care unit. Weightbearing status: Patient can be full weightbearing as tolerated in surgical shoes to the bilateral lower extremity. Please reach out to Dr. Irene with any questions or concerns. Thank you for letting me be involved in the patient care. (2) Non-pressure chronic ulcer of left ankle with necrosis of muscle: (3) Acute painful diabetic polyneuropathy: (4) 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 foot with fat layer exposed: (5) Non-pressure chronic ulcer of other part of right foot with fat layer exposed: (6) Other specified peripheral vascular diseases: (7) Charcot joint of foot:
--- NOTE | 2025-06-10 14:56 | WOUNDNOTE ---
wound photo: left lateral foot
--- NOTE | 2025-06-10 14:57 | WOUNDNOTE ---
wound photo: left medial ankle
--- NOTE | 2025-06-10 14:57 | WOUNDNOTE ---
wound photo: left posterior lower leg
--- NOTE | 2025-06-10 14:58 | WOUNDNOTE ---
wound photo: left heel
--- NOTE | 2025-06-10 14:59 | WOUNDNOTE ---
wound photo: right lateral heel
--- NOTE | 2025-06-10 16:30 | CASEMGMT ---
Social Work SW completed BIMS () and PHQ-2 () for MDS assessment. Katarina Bunch CDL A DRIVER TILER
--- NOTE | 2025-06-10 16:47 | NURSING ---
notified dr solomon pt c-diff positive for antigen and toxin
--- NOTE | 2025-06-10 17:25 | RAD_ITS ---
PROCEDURE: LEFT ANKLE MIN 3 VIEWS 06/10/2025 REASON FOR EXAM: RULE OUT OSTEOMYELITIS TECHNIQUE: LEFT ANKLE MIN 3 VIEWS COMPARISON: 05/18/2025 FINDINGS: No acute fracture or dislocation. Marked diffuse qualitative osteopenia. No osseous erosion/destruction or periosteal reaction appreciated. Moderate degenerative arthrosis of the subtalar and intertarsal joint spaces with subchondral sclerosis, with probable Charcot arthropathy and severe pes planus deformity. Small plantar calcaneal spur. Mild generalized soft tissue swelling about the lower extremity, with no subcutaneous emphysema. Scattered surgical clips. RAD/Ankle min 3 Views IMPRESSION: No radiographic evidence of osteomyelitis or other acute abnormality. Moderate degenerative arthrosis of the ankle/midfoot and pes planus deformity. If there is persistent clinical concern for osteomyeliti s, suggest MRI or nuclear bone scan which have superior sensitivity. Reading Location: [id number]
[2025-06-10 18:59] LABS: CRP 242.00 mg/L (0.0-3.0)
[2025-06-10] MEDS: Ceftriaxone 2 GM in 0.9% Normal Saline (50mL MB+) 50 ML IV (19:03)
[2025-06-10] MEDS: 0.9% Saline Lock 10 ML Syringe IV (19:03)
[2025-06-10] MEDS: Vancomycin 125 MG/5 ML Susp PO.SYRINGE PO (20:41)
[2025-06-10] MEDS: Vancomycin HCl 1,750 MG in 0.9% Normal Saline (500mL Bag) 500 ML 250 MG IV (21:19)
[2025-06-10] MEDS: 0.9% Normal Saline (250mL Bag) 250 ML 15 ML IV (21:19)
--- NOTE | 2025-06-10 23:40 | NURSING ---
Flagyl dose scheduled for 1400 was given at 1900 by prior shift, spoke with Rick from pharmacy and he stated to hold 2200 dose and then resume normal schedule as ordered.
[2025-06-11] MEDS: 0.9% Saline Lock 10 ML Syringe IV ×2 (00:23→21:40)
[2025-06-11] MEDS: Vancomycin 125 MG/5 ML Susp PO.SYRINGE PO ×4 (00:23→18:37)
--- NOTE | 2025-06-11 06:33 | NURSING ---
Pt's blood sugar was 58 @ 0612 via finger stick, 4oz apple juice given per hypoglycemia policy. Blood sugar rechecked 15 min later and increased to 80. Pt denied feeling symptomatic and declines further intervention at this time.
--- NOTE | 2025-06-11 08:03 | MDS.RN ---
Information for the MDS was obtained from review of the clinical record, interview of resident, staff, and direct observation of resident?s care.
[2025-06-11 08:07] VITALS: BP 98/42; PULSE 54; RESP 14; TEMP 37.9; O2SAT 91
--- NOTE | 2025-06-11 08:16 | NURSING ---
Addendum entered by Rebecca Ch 06/11/25 19:21: returned to unit around 3:30 pm with no new orders. Addendum entered by Siri Ulloa 06/11/25 10:30: Brother updated via T/C per patient request. Addendum entered by Siri Ulloa 06/11/25 08:45: Patient exited the unit at 0830 for ER evaluation. Original Note: Patient appearing unwell and pale in color. Patient lethargic and difficult to arrouse. Temp elevated and BP decreased. Updated Dr. Al. Dr. Al to assess. New order to send patient to ED. Report called to ER Nurse.
[2025-06-11 10:00] VITALS: PULSE 64; RESP 18; O2SAT 99
--- NOTE | 2025-06-11 13:00 | WOUNDNOTE ---
Pt currently off unit in the ED d/t fever and possible sepsis. will see if patient gets admitted to the acute side. will continue to follow.
[2025-06-11] MEDS: Lactobacillis Acidophilus 1 CAP PO (15:51)
[2025-06-11 15:55] VITALS: PULSE 67
[2025-06-11] MEDS: Metoprolol(XL)Succ 25 MG Tablet 6.25 MG PO (15:55)
[2025-06-11] MEDS: Ceftriaxone 2 GM in 0.9% Normal Saline (50mL MB+) 50 ML IV (16:46)
[2025-06-11] MEDS: Vancomycin HCl 500 MG in 0.9% Normal Saline (100mL Bag) 100 ML 100 MG IV (21:38)
[2025-06-11] MEDS: Neuropathy Pain Cream Compound 60 CLICK TUBE TOPICAL (21:39)
[2025-06-11] MEDS: Senna/Docusate Sodium 1 Tablet 2 TABLET PO (21:39)
[2025-06-12] MEDS: Vancomycin 125 MG/5 ML Susp PO.SYRINGE PO ×5 (00:02→23:11)
[2025-06-12 05:35] LABS: Hematocrit 24.2 % (37-47); Hemoglobin 7.8 g/dL (12.0-15.0); Immature Granulocytes Count 0.020 X10^3/uL (0.0-0.0); Mean Corp Hgb Conc 32.2 g/dL (32-36); Mean Corpuscular Volume 90.0 fL (81-99); Mean Platelet Vol. 11.5 fl (6.2-12.0); NRBC Flagged by Analyzer 0 % (0-5); Platelet Count 203 K/mm3 (150-450); RBC Distribution Width CV 15.3 % (11.6-14.6); RBC Distribution Width SD 50.4 fl (35.1-43.9); Red Blood Count 2.69 M/mm3 (4.2-5.4); White Blood Count 5.8 K/mm3 (4.4-11.0)
[2025-06-12 05:53] VITALS: O2SAT 98
[2025-06-12 09:16] VITALS: BP 119/46; PULSE 69; RESP 17; TEMP 36.7; O2SAT 99
--- NOTE | 2025-06-12 10:15 | NURSING ---
Spoke with brother about upcoming appts. Discussed resident being in C-diff precautions. Brother states he will move ortho and eye doctor appts until after she is out of isolation and will update staff on new dates/times.
[2025-06-12] MEDS: Lactobacillis Acidophilus 1 CAP PO (10:20)
[2025-06-12] MEDS: DAKIN'S SOL HALF STRENGTH (=0.25%) TOPICAL (10:20)
[2025-06-12] MEDS: Neuropathy Pain Cream Compound 60 CLICK TUBE TOPICAL (10:21)
[2025-06-12 10:23] VITALS: PULSE 69
[2025-06-12] MEDS: Metoprolol(XL)Succ 25 MG Tablet 6.25 MG PO (10:23)
--- NOTE | 2025-06-12 10:27 | WOUNDNOTE ---
wound photo: left lateral foot
--- NOTE | 2025-06-12 10:28 | WOUNDNOTE ---
wound photo: left medial ankle
--- NOTE | 2025-06-12 10:28 | WOUNDNOTE ---
wound photo: left posterior lower leg
--- NOTE | 2025-06-12 10:29 | WOUNDNOTE ---
wound photo: left heel
[2025-06-12 10:34] LABS: Vancomycin, Trough Level 12.6 ug/mL (5.0-15.0)
--- NOTE | 2025-06-12 11:12 | PCM.PN.ID ---
Physical Exam Narrative Feeling better, diarrhea resolved, no fever, no abd pain Const alert and no apparent distress General Appearance: cooperative Resp normal air movement and clear to auscultation bilaterally Cardio regular rate and regular rhythm GI soft to palpation, non-tender and non-distended Skin Skin Narrative: ankle wrapped ID ID: Route of nutrition/ use of supplements: [] Nutritional Intake: [] IV Site: [] Null Catheter: [] Assessment & Plan Assessment/Plan (1) Type 2 diabetes mellitus with foot ulcer: PLAN: Recent wound cx with MRSA, Acinetobacter, prevotella, and anaerobes. Developed fever, worsened ankle wound, cxs sent. Now cdiff (+). Started po vanc. Wound cx with GNR x2 and staph aureus. Cont iv vanc/ceftriaxone/flagyl. Feeling better. Will follow (2) C. difficile diarrhea:
--- NOTE | 2025-06-12 11:15 | PCM.RX.CS ---
Consult Antibiotic Management Pharmacy has been consulted to manage selected antibiotic: Vancomycin Type of Intervention Type of Consult: Follow-up Labs Labs: Sodium 137 mmol/L (133-145) 06/10/25 11:29 Potassium 3.7 mmol/L (3.3-5.1) 06/10/25 11:29 Chloride 104 mmol/L (98-108) 06/10/25 11:29 Carbon Dioxide 22.3 mmol/L (21.0-32.0) 06/10/25 11:29 Anion Gap 11 (5-15) 06/10/25 11:29 BUN 55 mg/dL (4-19) H 06/10/25 11:29 Creatinine 1.22 mg/dL (0.70-1.20) H 06/10/25 11:29 Est GFR (MDRD) Non-Af 47 (>60) L 06/10/25 11:29 BUN/Creatinine Ratio 45.0 RATIO (10-20) H 06/10/25 11:29 Glucose 218 mg/dL (70-99) H 06/10/25 11:29 Vancomycin Trough 12.6 ug/mL (5.0-15.0) 06/12/25 08:55 Microbiology Microbiology: Microbiology 06/10/25 13:30 Wound Drainage - Aerobic & Anaerobic Swabs Gram Stain - Final 06/10/25 13:30 Wound Drainage - Aerobic & Anaerobic Swabs Wound Culture - Preliminary Gram negative maycol Gram negative maycol#2 Staphylococcus aureus 06/10/25 11:25 Urine Catheter - Catheter Urine Culture - Final Enterobacter asburiae 06/10/25 13:15 Stool C. difficile GDH Antigen & Toxins - Final Toxigenic C. difficile 06/10/25 13:15 Stool Clostridioides difficile (PCR) - Final 06/10/25 10:48 Mucosa - Nasopharyngeal Respiratory Panel (PCR) - Final 06/10/25 11:32 Nasal Secretion SARS-CoV-2 Antigen (Rapid) - Final 06/03/25 Unknown Stool Stool Occult Blood (ERICA) - Final Occult Blood Positive Dosing Weight Weight used for dosin kg Goal Trough Goal Trough: 15-20 mcg/mL Pharmacy Plan for Drug Dosing Pharmacy Plan for Drug Dosing: VANCOMYCIN LEVEL RECEIVED Current Vancomycin Dose: 500 MG Q12H Number of Doses Received: 2 (5100, 6074) Vancomycin Level: 12.6 Hours Since Last Dose: 11.5 Renal Function: 1.22 mg/dL, 42.04 ml/min Renal Function Trend: Stable Lab/Micro: Staphylococcus aureus + Gram Negative rods Vancomycin Plan/Comments: Due to subtherapeutic level, will increase dose to 750 mg q12h Pharmacy Service will continue to monitor and adjust dosing as required. Pending Level: 06/13/2025 @2200 Follow-Up Labs Follow-Up Labs: Trough: Vancomycin Date/Time Labs Ordered Labs to be done on [date and time ordered]: 06/13/2025 @ 2200
[2025-06-12] MEDS: Ceftriaxone 2 GM in 0.9% Normal Saline (50mL MB+) 50 ML IV (11:51)
[2025-06-12] MEDS: Vancomycin Trough/Random Due 1 LAB MC ×2 (12:50)
[2025-06-12] MEDS: Vancomycin HCl 750 MG in 0.9% Normal Saline (250mL Bag) 250 ML 250 MG IV ×2 (12:50→22:19)
--- NOTE | 2025-06-12 14:18 | NURSING ---
doppler on right arm complete- no findings at this time
[2025-06-12] MEDS: 0.9% Saline Lock 10 ML Syringe IV (22:18)
[2025-06-13] MEDS: Vancomycin 125 MG/5 ML Susp PO.SYRINGE PO ×4 (05:32→23:14)
[2025-06-13 07:51] LABS: Hematocrit 26.3 % (37-47); Hemoglobin 8.3 g/dL (12.0-15.0)
[2025-06-13] MEDS: 0.9% Saline Lock 10 ML Syringe IV ×2 (10:08→23:14)
[2025-06-13] MEDS: Lactobacillis Acidophilus 1 CAP PO (10:08)
[2025-06-13 10:13] VITALS: PULSE 61
[2025-06-13] MEDS: Metoprolol(XL)Succ 25 MG Tablet 6.25 MG PO (10:13)
[2025-06-13] MEDS: Ceftriaxone 2 GM in 0.9% Normal Saline (50mL MB+) 50 ML IV (10:30)
[2025-06-13] MEDS: Vancomycin HCl 750 MG in 0.9% Normal Saline (250mL Bag) 250 ML 250 MG IV (10:31)
[2025-06-13 12:38] VITALS: BP 114/59; PULSE 61; RESP 14; TEMP 36.4; O2SAT 98
[2025-06-13 20:00] VITALS: O2SAT 98
[2025-06-13] MEDS: Vancomycin Trough/Random Due 1 LAB MC (23:07)
[2025-06-13] MEDS: DAKIN'S SOL HALF STRENGTH (=0.25%) TOPICAL (23:10)
[2025-06-13 23:14] LABS: Vancomycin, Trough Level 13.3 ug/mL (5.0-15.0)
--- NOTE | 2025-06-13 23:22 | PCM.RX.CS ---
Consult Antibiotic Management Pharmacy has been consulted to manage selected antibiotic: Vancomycin Type of Intervention Type of Consult: Follow-up Suspected Infection Suspected Infection: Osteomyelitis Prior Doses of Antibiotics Prior Doses of Antibiotics Received/Current Regimen: Vancomycin 750 mg Q12H last dose given 06/13/25 @ 1031 Labs Labs: Sodium 137 mmol/L (133-145) 06/10/25 11:29 Potassium 3.7 mmol/L (3.3-5.1) 06/10/25 11:29 Chloride 104 mmol/L (98-108) 06/10/25 11:29 Carbon Dioxide 22.3 mmol/L (21.0-32.0) 06/10/25 11:29 Anion Gap 11 (5-15) 06/10/25 11:29 BUN 55 mg/dL (4-19) H 06/10/25 11:29 Creatinine 1.22 mg/dL (0.70-1.20) H 06/10/25 11:29 Est GFR (MDRD) Non-Af 47 (>60) L 06/10/25 11:29 BUN/Creatinine Ratio 45.0 RATIO (10-20) H 06/10/25 11:29 Glucose 218 mg/dL (70-99) H 06/10/25 11:29 Vancomycin Trough 13.3 ug/mL (5.0-15.0) 06/13/25 22:40 Microbiology Microbiology: Microbiology 06/10/25 13:30 Wound Drainage - Aerobic & Anaerobic Swabs Gram Stain - Final 06/10/25 13:30 Wound Drainage - Aerobic & Anaerobic Swabs Wound Culture - Preliminary Stenotrophomonas maltophilia Acinetobacter baumannii Meth. resistant Staph. aureus 06/10/25 13:30 Wound Drainage - Aerobic & Anaerobic Swabs Anaerobic Culture - Preliminary Checking for anaerobes, further studies to follow. 06/10/25 11:36 Blood Culture (Wb) - Anticubital Right Blood Culture - Preliminary No growth in 48 hours. 06/10/25 11:29 Blood Culture (Wb) - Anticubital Left Blood Culture - Preliminary No growth in 48 hours. 06/10/25 11:25 Urine Catheter - Catheter Urine Culture - Final Enterobacter asburiae 06/10/25 13:15 Stool C. difficile GDH Antigen & Toxins - Final Toxigenic C. difficile 06/10/25 13:15 Stool Clostridioides difficile (PCR) - Final 06/10/25 10:48 Mucosa - Nasopharyngeal Respiratory Panel (PCR) - Final 06/10/25 11:32 Nasal Secretion SARS-CoV-2 Antigen (Rapid) - Final 06/03/25 Unknown Stool Stool Occult Blood (ERICA) - Final Occult Blood Positive Dosing Weight Weight used for dosin kg Estimated Creatinine Clearance Estimated Creatinine Clearance: ~ 42 Goal Trough Goal Trough: 15-20 mcg/mL Pharmacy Plan for Drug Dosing Pharmacy Plan for Drug Dosing: Vancomycin trough = 13.3, increase to 1000 mg Q12H Pharmacy Service will continue to monitor and adjust dosing as required. Follow-Up Labs Follow-Up Labs: Trough: Vancomycin Date/Time Labs Ordered Labs to be done on [date and time ordered]: 06/15/25 @ 1100
[2025-06-13] MEDS: Vancomycin HCl 1,000 MG in 0.9% Normal Saline (250mL Bag) 250 ML 250 MG IV (23:48)
[2025-06-14 05:27] VITALS: O2SAT 99
[2025-06-14] MEDS: Vancomycin 125 MG/5 ML Susp PO.SYRINGE PO ×4 (06:20→23:56)
[2025-06-14 09:30] VITALS: BP 115/32; PULSE 52; RESP 16; TEMP 36.8; O2SAT 98
[2025-06-14] MEDS: Lactobacillis Acidophilus 1 CAP PO (09:59)
[2025-06-14] MEDS: Ceftriaxone 2 GM in 0.9% Normal Saline (50mL MB+) 50 ML IV (10:00)
[2025-06-14] MEDS: 0.9% Saline Lock 10 ML Syringe IV ×3 (10:00→22:07)
[2025-06-14 10:24] VITALS: PULSE 52
[2025-06-14] MEDS: Neuropathy Pain Cream Compound 60 CLICK TUBE TOPICAL (10:25)
[2025-06-14] MEDS: Vancomycin HCl 1,000 MG in 0.9% Normal Saline (250mL Bag) 250 ML 250 MG IV ×2 (11:14→22:15)
[2025-06-14] MEDS: DAKIN'S SOL HALF STRENGTH (=0.25%) TOPICAL (11:57)
[2025-06-15] MEDS: Vancomycin 125 MG/5 ML Susp PO.SYRINGE PO ×4 (06:07→23:05)
--- NOTE | 2025-06-15 09:10 | NURSING ---
Offered covid vaccine, VIS provided. Resident declines.
[2025-06-15] MEDS: Lactobacillis Acidophilus 1 CAP PO (09:22)
[2025-06-15 09:24] VITALS: PULSE 50
--- NOTE | 2025-06-15 10:25 | CASEMGMT ---
Social Work Received call from pt's brother inquiring about additional resources for DC plan. Brother stated pt cannot afford a SNF and inquired about PHYSICAL THERAPY DIRECTOR. SW educated to skilled and nonskilled HHC with insurance/OOP cost. Brother interested in PHYSICAL THERAPY DIRECTOR resources via email. SW sent via email. Will continue to follow. Katarina Bunch BOAT PAINTER SOLAR CONSULTANT
[2025-06-15] MEDS: Ceftriaxone 2 GM in 0.9% Normal Saline (50mL MB+) 50 ML IV (10:33)
[2025-06-15] MEDS: Vancomycin Trough/Random Due 1 LAB MC (11:22)
[2025-06-15 11:26] VITALS: BP 123/41; PULSE 50; RESP 18; TEMP 36.9; O2SAT 99
[2025-06-15 11:55] LABS: Vancomycin, Trough Level 25.0 ug/mL (5.0-15.0)
--- NOTE | 2025-06-15 12:20 | PCM.RX.CS ---
Consult Antibiotic Management Pharmacy has been consulted to manage selected antibiotic: Vancomycin Type of Intervention Type of Consult: Follow-up Suspected Infection Suspected Infection: Osteomyelitis Labs Labs: Sodium 137 mmol/L (133-145) 06/10/25 11:29 Potassium 3.7 mmol/L (3.3-5.1) 06/10/25 11:29 Chloride 104 mmol/L (98-108) 06/10/25 11:29 Carbon Dioxide 22.3 mmol/L (21.0-32.0) 06/10/25 11:29 Anion Gap 11 (5-15) 06/10/25 11:29 BUN 55 mg/dL (4-19) H 06/10/25 11:29 Creatinine 1.22 mg/dL (0.70-1.20) H 06/10/25 11:29 Est GFR (MDRD) Non-Af 47 (>60) L 06/10/25 11:29 BUN/Creatinine Ratio 45.0 RATIO (10-20) H 06/10/25 11:29 Glucose 218 mg/dL (70-99) H 06/10/25 11:29 Vancomycin Trough 25.0 ug/mL (5.0-15.0) H 06/15/25 11:22 Microbiology Microbiology: Microbiology 06/10/25 11:36 Blood Culture (Wb) - Anticubital Right Blood Culture - Final No growth in 5 days. 06/10/25 11:29 Blood Culture (Wb) - Anticubital Left Blood Culture - Final No growth in 5 days. 06/10/25 13:30 Wound Drainage - Aerobic & Anaerobic Swabs Gram Stain - Final 06/10/25 13:30 Wound Drainage - Aerobic & Anaerobic Swabs Wound Culture - Final Stenotrophomonas maltophilia Acinetobacter baumannii Meth. resistant Staph. aureus 06/10/25 13:30 Wound Drainage - Aerobic & Anaerobic Swabs Anaerobic Culture - Final No anaerobic bacteria isolated. 06/10/25 11:25 Urine Catheter - Catheter Urine Culture - Final Enterobacter asburiae 06/10/25 13:15 Stool C. difficile GDH Antigen & Toxins - Final Toxigenic C. difficile 06/10/25 13:15 Stool Clostridioides difficile (PCR) - Final 06/10/25 10:48 Mucosa - Nasopharyngeal Respiratory Panel (PCR) - Final 06/10/25 11:32 Nasal Secretion SARS-CoV-2 Antigen (Rapid) - Final 06/03/25 Unknown Stool Stool Occult Blood (ERICA) - Final Occult Blood Positive Pharmacy Plan for Drug Dosing Pharmacy Plan for Drug Dosing: VANCOMYCIN LEVEL RECEIVED Current Vancomycin Dose: 1000MG Q12 Number of Doses Received: 7 Vancomycin Level: 25 mg/dL Hours Since Last Dose: 13 Renal Function: SCr 1.22 mg/dL, CrCl 42 ml/min (based on SCr from 06/10) Renal Function Trend: unknown, new SCr scheduled for tomorrow AM Vancomycin Plan/Comments: 13 hour trough is supratherapeutic at 25 mg/dL (goal 15-20). Will hold dosing and get a level with AM labs 06/16/25. Pending Level: 06/16/25 @ 0600 (with AM labs) Pharmacy Service will continue to monitor and adjust dosing as required.
--- NOTE | 2025-06-15 14:31 | WOUNDNOTE ---
wound photo: left lateral foot
--- NOTE | 2025-06-15 14:31 | WOUNDNOTE ---
wound photo: left medial ankle
--- NOTE | 2025-06-15 14:32 | WOUNDNOTE ---
wound photo: left posterior lower leg
--- NOTE | 2025-06-15 14:33 | WOUNDNOTE ---
wound photo: left medial lower leg
--- NOTE | 2025-06-15 14:33 | WOUNDNOTE ---
wound photo: left heel
--- NOTE | 2025-06-15 14:36 | NURSING ---
Addendum entered by Rebecca Ch 06/15/25 15:04: pharmacy d/c'd IV Vanco. Addendum entered by Rebecca Ch 06/15/25 14:38: lab report placed on board for Dr. Al. Original Note: vanco trough drawn this AM, levels 25 ug/mL.
[2025-06-15] MEDS: DAKIN'S SOL HALF STRENGTH (=0.25%) TOPICAL (16:43)
[2025-06-16] MEDS: Vancomycin Trough/Random Due 1 LAB MC (04:59)
[2025-06-16] MEDS: Vancomycin 125 MG/5 ML Susp PO.SYRINGE PO ×4 (05:00→23:23)
[2025-06-16 05:41] LABS: Hematocrit 23.3 % (37-47); Hemoglobin 7.4 g/dL (12.0-15.0); Immature Granulocytes Count 0.030 X10^3/uL (0.0-0.0); Mean Corp Hgb Conc 31.8 g/dL (32-36); Mean Corpuscular Volume 88.9 fL (81-99); Mean Platelet Vol. 11.3 fl (6.2-12.0); NRBC Flagged by Analyzer 0 % (0-5); Platelet Count 216 K/mm3 (150-450); RBC Distribution Width CV 15.6 % (11.6-14.6); RBC Distribution Width SD 50.2 fl (35.1-43.9); Red Blood Count 2.62 M/mm3 (4.2-5.4); White Blood Count 5.8 K/mm3 (4.4-11.0)
[2025-06-16 06:09] LABS: Anion Gap 9 (5-15); BUN 47 mg/dL (4-19); BUN/Creat Ratio 43.4 RATIO (10-20); Calcium,Total 8.1 mg/dL (7.6-11.0); Carbon Dioxide 19.0 mmol/L (21.0-32.0); Chloride 113 mmol/L (98-108); Estimated Creatinine Clearance 47.06 ml/min (50-250); Glucose 167 mg/dL (70-99); Potassium 3.9 mmol/L (3.3-5.1)
[2025-06-16 06:12] LABS: Vancomycin, Random Level 20.1 ug/mL (0.0-15.0)
--- NOTE | 2025-06-16 06:28 | PCM.RX.CS ---
Consult Antibiotic Management Pharmacy has been consulted to manage selected antibiotic: Vancomycin Type of Intervention Type of Consult: Follow-up Suspected Infection Suspected Infection: Osteomyelitis Prior Doses of Antibiotics Prior Doses of Antibiotics Received/Current Regimen: Vancomycin 1000 mg last given 06/14/25 @ 2215 Labs Labs: Sodium 141 mmol/L (133-145) 06/16/25 05:28 Potassium 3.9 mmol/L (3.3-5.1) 06/16/25 05:28 Chloride 113 mmol/L (98-108) H 06/16/25 05:28 Carbon Dioxide 19.0 mmol/L (21.0-32.0) L 06/16/25 05:28 Anion Gap 9 (5-15) 06/16/25 05:28 BUN 47 mg/dL (4-19) H 06/16/25 05:28 Creatinine 1.09 mg/dL (0.70-1.20) 06/16/25 05:28 Est GFR (MDRD) Non-Af 54 (>60) L 06/16/25 05:28 BUN/Creatinine Ratio 43.4 RATIO (10-20) H 06/16/25 05:28 Glucose 167 mg/dL (70-99) H 06/16/25 05:28 Vancomycin Trough 25.0 ug/mL (5.0-15.0) H 06/15/25 11:22 Random Vancomycin 20.1 ug/mL (0.0-15.0) H 06/16/25 05:28 Microbiology Microbiology: Microbiology 06/10/25 11:36 Blood Culture (Wb) - Anticubital Right Blood Culture - Final No growth in 5 days. 06/10/25 11:29 Blood Culture (Wb) - Anticubital Left Blood Culture - Final No growth in 5 days. 06/10/25 13:30 Wound Drainage - Aerobic & Anaerobic Swabs Gram Stain - Final 06/10/25 13:30 Wound Drainage - Aerobic & Anaerobic Swabs Wound Culture - Final Stenotrophomonas maltophilia Acinetobacter baumannii Meth. resistant Staph. aureus 06/10/25 13:30 Wound Drainage - Aerobic & Anaerobic Swabs Anaerobic Culture - Final No anaerobic bacteria isolated. 06/10/25 11:25 Urine Catheter - Catheter Urine Culture - Final Enterobacter asburiae 06/10/25 13:15 Stool C. difficile GDH Antigen & Toxins - Final Toxigenic C. difficile 06/10/25 13:15 Stool Clostridioides difficile (PCR) - Final 06/10/25 10:48 Mucosa - Nasopharyngeal Respiratory Panel (PCR) - Final 06/10/25 11:32 Nasal Secretion SARS-CoV-2 Antigen (Rapid) - Final 06/03/25 Unknown Stool Stool Occult Blood (ERICA) - Final Occult Blood Positive Dosing Weight Weight used for dosin kg Estimated Creatinine Clearance Estimated Creatinine Clearance: ~ 47 Goal Trough Goal Trough: 15-20 mcg/mL Pharmacy Plan for Drug Dosing Pharmacy Plan for Drug Dosing: Vancomycin random level = 20.1, resume dosing at 750 mg q12h Pharmacy Service will continue to monitor and adjust dosing as required. Follow-Up Labs Follow-Up Labs: Trough: Vancomycin Date/Time Labs Ordered Labs to be done on [date and time ordered]: 06/17/25 @ 5104
--- NOTE | 2025-06-16 07:10 | NURSING ---
Written communication left for Dr. Al regarding current Hbg.
--- NOTE | 2025-06-16 07:43 | NURSING ---
Addendum entered by Ingrid Rodriguez 06/16/25 08:42: On C-diff isolation, will need to go to hospital for transfusion. Spoke with research greenhouse supervisor, plan to send her to ICU around 1400 for 1 unit blood. Updated resident, and brother and sister via phone. Original Note: dr solomon notified of hgb this AM, new order for blood transfusion
[2025-06-16] MEDS: 0.9% Saline Lock 10 ML Syringe IV ×2 (07:50→12:45)
[2025-06-16] MEDS: Vancomycin HCl 750 MG in 0.9% Normal Saline (250mL Bag) 250 ML 250 MG IV ×2 (07:50→20:31)
[2025-06-16] MEDS: Lactobacillis Acidophilus 1 CAP PO (07:51)
[2025-06-16 08:18] VITALS: BP 125/41; PULSE 54
[2025-06-16 08:26] VITALS: BP 125/41; PULSE 54; RESP 16; TEMP 36.1; O2SAT 98
--- NOTE | 2025-06-16 10:02 | NURSING ---
Reached out to Dr. Mendoza about IV antibiotic length, he responded she will need 6 weeks total.
--- NOTE | 2025-06-16 10:06 | PCM.PN.ID ---
Physical Exam Narrative Feeling ok, no fever, mild loose stool Const alert and no apparent distress General Appearance: cooperative Resp normal air movement and clear to auscultation bilaterally Cardio regular rate and regular rhythm GI soft to palpation, non-tender and non-distended Extremity General Extremity: edema Skin Skin Narrative: feet wrapped ID ID: Route of nutrition/ use of supplements: [] Nutritional Intake: [] IV Site: [] Null Catheter: [] Assessment & Plan Assessment/Plan (1) Type 2 diabetes mellitus with foot ulcer: PLAN: Prior wound cx with MRSA, Acinetobacter, prevotella, and anaerobes. Developed fever, worsened ankle wound, cxs sent. Now cdiff (+). Started po vanc. Wound cx with MRSA, AcB, steno. Will change to iv vanc, unasyn, and levaquin. Cont po vanc. Will follow (2) C. difficile diarrhea:
[2025-06-16] MEDS: DAKIN'S SOL HALF STRENGTH (=0.25%) TOPICAL (10:10)
[2025-06-16] MEDS: Ampicillin/Sulbactam 3 GM in 0.9% Normal Saline (100mL MB+) 100 ML IV ×2 (10:46→23:22)
[2025-06-16] MEDS: 0.9% Normal Saline (250mL Bag) 250 ML 15 ML IV (10:46)
--- NOTE | 2025-06-16 11:20 | NURSING ---
dressings changed to BLEs per order. pt up in chair, legs elevated. call light in reach.
[2025-06-16 13:22] VITALS: BMI 28.3
--- NOTE | 2025-06-16 14:12 | NURSING ---
pt off unit to ICU for blood transfusion via WC at this time
--- NOTE | 2025-06-16 17:21 | NURSING ---
pt back from blood transfusion at this time
[2025-06-16 17:29] VITALS: BP 141/53; PULSE 51; RESP 16; TEMP 36.5; O2SAT 94
--- NOTE | 2025-06-16 18:51 | NURSING ---
ICU nurse reported that pt needed a peripheral IV d/t purple lumen on picc not flushing along with red lumen. dr solomon updated, new order for cathflo. unable to get cathflo in red lumen, was able to get in purple lumen. will wait for approx 30 minutes or longer to check patency.
--- NOTE | 2025-06-16 21:09 | NURSING ---
Cathflo removed from PICC in RUE per protocol. Both lumens flushed and have good blood return.
[2025-06-17] MEDS: Vancomycin 125 MG/5 ML Susp PO.SYRINGE PO ×4 (05:50→23:04)
[2025-06-17] MEDS: 0.9% Saline Lock 10 ML Syringe IV ×2 (05:56→08:38)
[2025-06-17] MEDS: Ampicillin/Sulbactam 3 GM in 0.9% Normal Saline (100mL MB+) 100 ML IV ×3 (06:10→21:56)
[2025-06-17] MEDS: Lactobacillis Acidophilus 1 CAP PO (08:37)
[2025-06-17 08:38] VITALS: PULSE 53
[2025-06-17] MEDS: Metoprolol(XL)Succ 25 MG Tablet 6.25 MG PO (08:38)
[2025-06-17] MEDS: Vancomycin HCl 750 MG in 0.9% Normal Saline (250mL Bag) 250 ML 250 MG IV (08:39)
--- NOTE | 2025-06-17 08:46 | PCM.PN.SRG ---
Subjective Subjective Ms. Fuller is a 75-year-old diabetic female seen at bedside today for evaluation of bilateral full-thickness wound. Patient has been getting wound care dressing changes by nursing staff. Clinical pictures show good granular fibrotic base wounds with no concern of infection. Patient is currently on PICC line antibiotics and is doing well. Patient admits to mild loose stool. No acute events overnight. She denies trauma. Denies constitutional symptoms. No other pedal complaints at this time Objective Data Objective Data Vital Signs: Vital Signs Temp Pulse Resp BP Pulse Ox O2 Del Method 97.7 F L 51 L 16 141/53 H 94 Room Air 06/16/25 17:29 06/16/25 17:29 06/16/25 17:29 06/16/25 17:29 06/16/25 17:29 06/16/25 17:29 Oxygen Delivery Method Room Air Weight: 79.52 kg Body Mass Index (BMI) 28.3 Intake & Output: Intake and Output for Last 24 Hours 06/15/25 06/16/25 06/17/25 23:59 23:59 23:59 Intake Total 746 / 746 1864.25 / 1864.25 200 / 200 Balance 746 / 746 1864.25 / 1864.25 200 / 200 Lab / Micro Data 06/17/25 15:20 06/16/25 05:28 Labs: Laboratory Results - last 24 hr 06/16/25 09:20: Blood Type Cancelled, Antibody Screen Cancelled, Crossmatch See Detail 06/16/25 17:33: POC Glucose 213 H 06/17/25 06:05: POC Glucose 190 H Micro: Microbiology 06/16/25 20:50 Stool Stool Occult Blood (ERICA) - Final Occult Blood Positive 06/10/25 11:36 Blood Culture (Wb) - Anticubital Right Blood Culture - Final No growth in 5 days. 06/10/25 11:29 Blood Culture (Wb) - Anticubital Left Blood Culture - Final No growth in 5 days. 06/10/25 13:30 Wound Drainage - Aerobic & Anaerobic Swabs Gram Stain - Final 06/10/25 13:30 Wound Drainage - Aerobic & Anaerobic Swabs Wound Culture - Final Stenotrophomonas maltophilia Acinetobacter baumannii Meth. resistant Staph. aureus 06/10/25 13:30 Wound Drainage - Aerobic & Anaerobic Swabs Anaerobic Culture - Final No anaerobic bacteria isolated. 06/10/25 11:25 Urine Catheter - Catheter Urine Culture - Final Enterobacter asburiae 06/10/25 13:15 Stool C. difficile GDH Antigen & Toxins - Final Toxigenic C. difficile 06/10/25 13:15 Stool Clostridioides difficile (PCR) - Final 06/10/25 10:48 Mucosa - Nasopharyngeal Respiratory Panel (PCR) - Final 06/10/25 11:32 Nasal Secretion SARS-CoV-2 Antigen (Rapid) - Final 06/03/25 Unknown Stool Stool Occult Blood (ERICA) - Final Occult Blood Positive Physical Exam Narrative Vascular: DP and PT pulses are palpable to the right and left lower extremities. CFT is brisk. Erythema has improved to the left ankle and foot. Neurological: Light touch intact. Patient does respond to painful stimuli to the left lower extremity. Dermatological: Full-thickness wound to the right posterior heel stable with granular wound base no sign of infection. Multiple full-thickness wound appreciated to the left lower extremity. Exposed tendon appreciated to the anterior lateral full-thickness wound is improving with healthy granular tissue surrounding the tendon. All wounds to the left lower extremity are healthy with fibrogranular tissue. No malodor. Musculoskeletal: No pain to palpation to the full-thickness wound to the anterior lateral ankle. No pain to palp patient to remaining bilateral full-thickness wound. Assessment & Plan Assessment/Plan (1) Cellulitis of left ankle: PLAN: Patient was examined and evaluated. All findings were discussed with the patient. All questions were answered to the patient satisfaction. Ankle x-rays (06/10/2025): There is no suggested evidence of osteomyelitis or other acute abnormalities. Patient will continue to get dressing changes by wound care nurse consisting of Dakin's soaked gauze, dry sterile dressing and compression wrap to the bilateral extremity. Please change daily. 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 Left anterior ankle full-thickness wound culture (06/10/2025): MRSA, AcB, steno. Stool Sample: C. Diff (+) Blood culture: (-)ve Urine culture: E asburiae WBC: 5.8 ESR (06/10/2025): 28 CRP (06/10/25): 242.0 Medicine: On board, medical management Infectious disease: On boards. C difficile positive, currently on p.o. Vanco, PICC line IV Vanco, Unasyn, Levaquin Podiatry will continue to follow patient while she is in house. Please continue daily dressing changes with Dakin soaked gauze, dry sterile dressing and bilateral compression wraps. Will plan for bedside debridement with wound care nurse this Sunday. Please reach out to Dr. Irene with any question or concerns. Thank you for letting me be involved in the patient care. (2) Non-pressure chronic ulcer of left ankle with necrosis of muscle: (3) Acute painful diabetic polyneuropathy: (4) 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 foot with fat layer exposed: (5) Non-pressure chronic ulcer of other part of right foot with fat layer exposed: (6) Other specified peripheral vascular diseases: (7) Charcot joint of foot:
[2025-06-17 08:59] VITALS: BP 158/58; PULSE 55; RESP 17; TEMP 36.6; O2SAT 99
[2025-06-17] MEDS: DAKIN'S SOL HALF STRENGTH (=0.25%) TOPICAL (13:56)
--- NOTE | 2025-06-17 13:59 | NURSING ---
When pt using toilet, staff noted bleeding from LT groin incision, x5 steri strips applied to superficial area & a foam dressing. bleeding stopped. will monitor
[2025-06-17 15:24] LABS: Hematocrit 27.7 % (37-47); Hemoglobin 9.2 g/dL (12.0-15.0)
[2025-06-17] MEDS: Vancomycin Trough/Random Due 1 LAB MC (16:45)
[2025-06-17 20:29] LABS: Vancomycin, Trough Level 24.2 ug/mL (5.0-15.0)
--- NOTE | 2025-06-17 20:40 | PCM.RX.CS ---
Consult Antibiotic Management Pharmacy has been consulted to manage selected antibiotic: Vancomycin Type of Intervention Type of Consult: Follow-up Labs Labs: Sodium 141 mmol/L (133-145) 06/16/25 05:28 Potassium 3.9 mmol/L (3.3-5.1) 06/16/25 05:28 Chloride 113 mmol/L (98-108) H 06/16/25 05:28 Carbon Dioxide 19.0 mmol/L (21.0-32.0) L 06/16/25 05:28 Anion Gap 9 (5-15) 06/16/25 05:28 BUN 47 mg/dL (4-19) H 06/16/25 05:28 Creatinine 1.09 mg/dL (0.70-1.20) 06/16/25 05:28 Est GFR (MDRD) Non-Af 54 (>60) L 06/16/25 05:28 BUN/Creatinine Ratio 43.4 RATIO (10-20) H 06/16/25 05:28 Glucose 167 mg/dL (70-99) H 06/16/25 05:28 Vancomycin Trough 24.2 ug/mL (5.0-15.0) H 06/17/25 19:24 Random Vancomycin 20.1 ug/mL (0.0-15.0) H 06/16/25 05:28 Microbiology Microbiology: Microbiology 06/16/25 20:50 Stool Stool Occult Blood (ERICA) - Final Occult Blood Positive 06/10/25 11:36 Blood Culture (Wb) - Anticubital Right Blood Culture - Final No growth in 5 days. 06/10/25 11:29 Blood Culture (Wb) - Anticubital Left Blood Culture - Final No growth in 5 days. 06/10/25 13:30 Wound Drainage - Aerobic & Anaerobic Swabs Gram Stain - Final 06/10/25 13:30 Wound Drainage - Aerobic & Anaerobic Swabs Wound Culture - Final Stenotrophomonas maltophilia Acinetobacter baumannii Meth. resistant Staph. aureus 06/10/25 13:30 Wound Drainage - Aerobic & Anaerobic Swabs Anaerobic Culture - Final No anaerobic bacteria isolated. 06/10/25 11:25 Urine Catheter - Catheter Urine Culture - Final Enterobacter asburiae 06/10/25 13:15 Stool C. difficile GDH Antigen & Toxins - Final Toxigenic C. difficile 06/10/25 13:15 Stool Clostridioides difficile (PCR) - Final 06/10/25 10:48 Mucosa - Nasopharyngeal Respiratory Panel (PCR) - Final 06/10/25 11:32 Nasal Secretion SARS-CoV-2 Antigen (Rapid) - Final 06/03/25 Unknown Stool Stool Occult Blood (ERICA) - Final Occult Blood Positive Goal Trough Goal Trough: 15-20 mcg/mL Pharmacy Plan for Drug Dosing Pharmacy Plan for Drug Dosing: VANCOMYCIN LEVEL RECEIVED Current Vancomycin Dose: 750mg IV Q12hr Number of Doses Received: 3 (of current regimen) Vancomycin Level: 24.2 Hours Since Last Dose: ~11.5hr Renal Function: 1.09 Renal Function Trend: stable Vancomycin Plan/Comments: patient had a trough drawn which resulted in a value of 24.2 (goal 15-20). patient's trough is above goal. Will hold subsequent doses of vancomycin and resume once trough is less than 20. Will recheck a trough tomorrow with AM labs. Pending Level: *RANDOM* 06/18/25 @0600 Pharmacy Service will continue to monitor and adjust dosing as required.
--- NOTE | 2025-06-17 21:28 | NURSING ---
Vancomycin trough above therapeutic level. Vancomycin IV held at this time. Trough to be rechecked in AM.
[2025-06-17 22:00] VITALS: RESP 16
[2025-06-18 06:19] LABS: Vancomycin, Random Level 21.1 ug/mL (0.0-15.0)
--- NOTE | 2025-06-18 06:26 | PCM.RX.CS ---
Consult Antibiotic Management Pharmacy has been consulted to manage selected antibiotic: Vancomycin Type of Intervention Type of Consult: Follow-up Suspected Infection Suspected Infection: Osteomyelitis Labs Labs: Sodium 141 mmol/L (133-145) 06/16/25 05:28 Potassium 3.9 mmol/L (3.3-5.1) 06/16/25 05:28 Chloride 113 mmol/L (98-108) H 06/16/25 05:28 Carbon Dioxide 19.0 mmol/L (21.0-32.0) L 06/16/25 05:28 Anion Gap 9 (5-15) 06/16/25 05:28 BUN 47 mg/dL (4-19) H 06/16/25 05:28 Creatinine 1.09 mg/dL (0.70-1.20) 06/16/25 05:28 Est GFR (MDRD) Non-Af 54 (>60) L 06/16/25 05:28 BUN/Creatinine Ratio 43.4 RATIO (10-20) H 06/16/25 05:28 Glucose 167 mg/dL (70-99) H 06/16/25 05:28 Vancomycin Trough 24.2 ug/mL (5.0-15.0) H 06/17/25 19:24 Random Vancomycin 21.1 ug/mL (0.0-15.0) H 06/18/25 05:39 Microbiology Microbiology: Microbiology 06/16/25 20:50 Stool Stool Occult Blood (ERICA) - Final Occult Blood Positive 06/10/25 11:36 Blood Culture (Wb) - Anticubital Right Blood Culture - Final No growth in 5 days. 06/10/25 11:29 Blood Culture (Wb) - Anticubital Left Blood Culture - Final No growth in 5 days. 06/10/25 13:30 Wound Drainage - Aerobic & Anaerobic Swabs Gram Stain - Final 06/10/25 13:30 Wound Drainage - Aerobic & Anaerobic Swabs Wound Culture - Final Stenotrophomonas maltophilia Acinetobacter baumannii Meth. resistant Staph. aureus 06/10/25 13:30 Wound Drainage - Aerobic & Anaerobic Swabs Anaerobic Culture - Final No anaerobic bacteria isolated. 06/10/25 11:25 Urine Catheter - Catheter Urine Culture - Final Enterobacter asburiae 06/10/25 13:15 Stool C. difficile GDH Antigen & Toxins - Final Toxigenic C. difficile 06/10/25 13:15 Stool Clostridioides difficile (PCR) - Final 06/10/25 10:48 Mucosa - Nasopharyngeal Respiratory Panel (PCR) - Final 06/10/25 11:32 Nasal Secretion SARS-CoV-2 Antigen (Rapid) - Final 06/03/25 Unknown Stool Stool Occult Blood (ERICA) - Final Occult Blood Positive Dosing Weight Weight used for dosin.5 kg Estimated Creatinine Clearance Estimated Creatinine Clearance: 47 Goal Trough Goal Trough: 15-20 mcg/mL Pharmacy Plan for Drug Dosing Pharmacy Plan for Drug Dosing: Random vancomycin level drawn 21hrs since last vanco dose was still high at 21.1. Will continue to suspend dosing, and will draw another random level in 12 hours to determine further orders. Pharmacy Service will continue to monitor and adjust dosing as required. Follow-Up Labs Follow-Up Labs: Trough: Vancomycin (random) Date/Time Labs Ordered Labs to be done on [date and time ordered]: 06/18/25 @1730 (random)
[2025-06-18 06:29] VITALS: BMI 28.6
[2025-06-18] MEDS: Vancomycin 125 MG/5 ML Susp PO.SYRINGE PO ×4 (06:30→23:14)
[2025-06-18] MEDS: Ampicillin/Sulbactam 3 GM in 0.9% Normal Saline (100mL MB+) 100 ML IV ×3 (06:32→22:04)
[2025-06-18] MEDS: 0.9% Saline Lock 10 ML Syringe IV ×4 (06:33→22:48)
[2025-06-18 09:28] VITALS: BP 179/59; PULSE 57; RESP 18; TEMP 36.7; O2SAT 99
[2025-06-18 09:29] VITALS: BP 179/59; PULSE 57
[2025-06-18] MEDS: Metoprolol(XL)Succ 25 MG Tablet 6.25 MG PO (09:29)
[2025-06-18] MEDS: Lactobacillis Acidophilus 1 CAP PO (09:29)
[2025-06-18 18:39] LABS: Vancomycin, Random Level 17.9 ug/mL (0.0-15.0)
--- NOTE | 2025-06-18 18:54 | PCM.RX.CS ---
Consult Antibiotic Management Pharmacy has been consulted to manage selected antibiotic: Vancomycin Type of Intervention Type of Consult: Follow-up Suspected Infection Suspected Infection: Osteomyelitis Prior Doses of Antibiotics Prior Doses of Antibiotics Received/Current Regimen: Dose was held and a random level was drawn today Labs Labs: Sodium 141 mmol/L (133-145) 06/16/25 05:28 Potassium 3.9 mmol/L (3.3-5.1) 06/16/25 05:28 Chloride 113 mmol/L (98-108) H 06/16/25 05:28 Carbon Dioxide 19.0 mmol/L (21.0-32.0) L 06/16/25 05:28 Anion Gap 9 (5-15) 06/16/25 05:28 BUN 47 mg/dL (4-19) H 06/16/25 05:28 Creatinine 1.09 mg/dL (0.70-1.20) 06/16/25 05:28 Est GFR (MDRD) Non-Af 54 (>60) L 06/16/25 05:28 BUN/Creatinine Ratio 43.4 RATIO (10-20) H 06/16/25 05:28 Glucose 167 mg/dL (70-99) H 06/16/25 05:28 Vancomycin Trough 24.2 ug/mL (5.0-15.0) H 06/17/25 19:24 Random Vancomycin 17.9 ug/mL (0.0-15.0) H 06/18/25 17:30 Microbiology Microbiology: Microbiology 06/16/25 20:50 Stool Stool Occult Blood (ERICA) - Final Occult Blood Positive 06/10/25 11:36 Blood Culture (Wb) - Anticubital Right Blood Culture - Final No growth in 5 days. 06/10/25 11:29 Blood Culture (Wb) - Anticubital Left Blood Culture - Final No growth in 5 days. 06/10/25 13:30 Wound Drainage - Aerobic & Anaerobic Swabs Gram Stain - Final 06/10/25 13:30 Wound Drainage - Aerobic & Anaerobic Swabs Wound Culture - Final Stenotrophomonas maltophilia Acinetobacter baumannii Meth. resistant Staph. aureus 06/10/25 13:30 Wound Drainage - Aerobic & Anaerobic Swabs Anaerobic Culture - Final No anaerobic bacteria isolated. 06/10/25 11:25 Urine Catheter - Catheter Urine Culture - Final Enterobacter asburiae 06/10/25 13:15 Stool C. difficile GDH Antigen & Toxins - Final Toxigenic C. difficile 06/10/25 13:15 Stool Clostridioides difficile (PCR) - Final 06/10/25 10:48 Mucosa - Nasopharyngeal Respiratory Panel (PCR) - Final 06/10/25 11:32 Nasal Secretion SARS-CoV-2 Antigen (Rapid) - Final 06/03/25 Unknown Stool Stool Occult Blood (ERICA) - Final Occult Blood Positive Dosing Weight Weight used for dosin kg Estimated Creatinine Clearance Estimated Creatinine Clearance: 47 Goal Trough Goal Trough: 15-20 mcg/mL Pharmacy Plan for Drug Dosing Pharmacy Plan for Drug Dosing: Start Vancomycin 500mg every 12 hours. Pharmacy Service will continue to monitor and adjust dosing as required. Follow-Up Labs Follow-Up Labs: Trough: Vancomycin Date/Time Labs Ordered Labs to be done on [date and time ordered]: 06/20/25 @ 0737
[2025-06-18] MEDS: Vancomycin Trough/Random Due 1 LAB MC (19:48)
[2025-06-18] MEDS: Vancomycin HCl 500 MG in 0.9% Normal Saline (100mL Bag) 100 ML 100 MG IV (20:39)
[2025-06-18] MEDS: DAKIN'S SOL HALF STRENGTH (=0.25%) TOPICAL (21:58)
[2025-06-18 22:00] VITALS: RESP 16; O2SAT 97
[2025-06-19] MEDS: 0.9% Saline Lock 10 ML Syringe IV ×5 (05:02→22:54)
[2025-06-19] MEDS: Ampicillin/Sulbactam 3 GM in 0.9% Normal Saline (100mL MB+) 100 ML IV ×3 (05:12→23:03)
[2025-06-19] MEDS: Vancomycin 125 MG/5 ML Susp PO.SYRINGE PO ×4 (06:07→23:03)
[2025-06-19 08:39] LABS: Hematocrit 30.8 % (37-47); Hemoglobin 9.8 g/dL (12.0-15.0)
[2025-06-19] MEDS: Vancomycin HCl 500 MG in 0.9% Normal Saline (100mL Bag) 100 ML 100 MG IV ×2 (08:44→19:35)
[2025-06-19 08:47] VITALS: PULSE 57
[2025-06-19] MEDS: Lactobacillis Acidophilus 1 CAP PO (08:47)
[2025-06-19] MEDS: Metoprolol(XL)Succ 25 MG Tablet 6.25 MG PO (08:47)
[2025-06-19 09:32] VITALS: BP 115/43; PULSE 95; RESP 16; TEMP 37.2; O2SAT 96
--- NOTE | 2025-06-19 11:21 | NURSING ---
Addendum entered by Carole Salas 06/19/25 14:10: clot found in RT subclavian vein, dr juanito walker, new order consult vascular. message left LILLIAM Kraft awaiting return call. Original Note: cardiovascular physician assistant in room doing doppler of RT upper arm
[2025-06-19] MEDS: DAKIN'S SOL HALF STRENGTH (=0.25%) TOPICAL (14:15)
--- NOTE | 2025-06-19 15:09 | CON.PCM.SX_ITS ---
Assessment & Plan Assessment/Plan (1) Deep vein thrombosis of right upper extremity: (2) PAOD (peripheral arterial occlusive disease): (3) Anemia: (4) Chronic osteomyelitis of left foot: PLAN: Plan For management of her RUE DVT, options for management would be to initiate full anticoagulation with therapeutic lovenox dosing (for her, 80mg SC Q12 hours) and close monitoring of her Hgb with daily H&H initially given recent GI bleed (with lesions treated with cautery and stable Hgb since then) or prophylactic lovenox dosing and removing PICC line and replacing in the LUE. I discussed her case with Dr. Al and also discussed both options with patient including risks and benefits with each. Gely indicated she really did not want to have the PICC line moved if possible and comfortable to try the therapeutic anticoagulation with close monitoring. In discussion with Dr. Al, his preference was also to trial therapeutic dosing given difficulty of obtaining this initial PICC line and the understanding that she requires IV antibiotic therapy for potentially an additional 6 weeks. Orders placed for lovenox and H&H to monitor. Regarding her L groin incision site, OK to continue with current wound care with steri-strips followed by foam border dressings, change foam border dressings daily. Monitor closely for any new/worsening drainage, redness, swelling, foul odor. HPI Consult Data Date of Consult: 06/19/25 HPI Narrative HPI Narrative: GELY NEWMAN, is a 75 F who is currently in the TCU for recovery from left femoral endarterectomy, left fem-peroneal bypass with reversed GSV cadaver, and left sartorius flap 05/26/25 performed secondary to severe PAD with nonhealing lower extremity diabetic ulcerations. She is followed by Dr. Irene for management of her bilateral foot and ankle wounds. She is followed by ID Dr. Mendoza for her L foot osteomyelitis and C. Dif; she is currently being treated with IV antibiotics via RUE PICC line and there is not a clear planned stop date at this time, potentially will need this for another 4-6 weeks. She reports she has had some swelling and discomfort in her RUE over the last week. She had a venous doppler 06/12 which was negative for DVT but had a repeat doppler today 06/19/25 which demonstrated R subclavian DVT and we are consulted regarding management. Unfortunately, she also has had recent GI bleed with acute on chronic anemia; she had upper endoscopy with cautery of erosive esophagitis with bleeding, bleeding duodenal ulcer, and [address] Yanez 06/12/25 after which her Hgb stabilized around 7.5. She did receive a PRBC transfusion 06/17/25 and her Hgb today 06/19/25 was 9.8. Additionally, she tells me today that she had some bleeding from her L groin incision site a few days ago; this was a brief episode. It appears steri-strips were placed and foam-border dressing has been applied. She reports she has not noticed any further drainage from this area. [facility] Medical History (Updated 06/19/25 @ 16:57 by LILLIAM Gilmore) Non-pressure chronic ulcer of other part of right foot with fat layer exposed 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 foot with fat layer exposed Type 2 diabetes mellitus with foot ulcer History of MRSA infection Pressure ulcer Ambulates with cane Shortness of breath on exertion History of edema History of echocardiogram Fall 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 Atherosclerosis of [place] artery of both lower extremities with gangrene Other specified peripheral vascular diseases Chronic painful diabetic polyneuropathy Anemia MRSA (methicillin resistant staph aureus) culture positive Diabetes Back pain Vertigo History of pain when walking Hypertension Arthritis Wears dentures Post-menopausal Low iron High cholesterol Easy bruising Neuropathy Dietary restriction Former smoker Cardiology follow-up encounter History of torn meniscus of left knee Carotid artery stenosis Essential hypertension Skin lesion Hammer toe of left foot Osteomyelitis Chronic kidney disease, stage 3 Atherosclerosis of coronary artery of [place] heart without angina pectoris Hyperlipidemia Peripheral vascular occlusive disease Hammer toe of second toe of left foot Hallux valgus (acquired), right foot Healed ulcer of left foot on examination Chronic ulcer of left foot with fat layer exposed Delayed wound healing Malnutrition Osteomyelitis of foot 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 Methicillin resistant Staphylococcus aureus infection Chronic osteomyelitis of left foot Non-healing ulcer of right foot DM2 (diabetes mellitus, type 2) Home Medications ?Medication ?Instructions ?Recorded ?Last Taken ?Type aspirin 81 mg tablet,delayed 81 mg PO QHS blood clots 01/13/14 05/31/25 20:15 History release multivitamin with folic acid 400 1 tab PO DAILY Supple ment 01/13/14 06/01/25 09:00 History mcg tablet omega-3 fatty acids-fish oil 340 1 ea PO DAILY supplem ent 06/29/16 08/27/16 History mg-1,000 mg capsule ferrous sulfate 325 mg (65 mg 325 mg PO DAILY SUPPLEME NT 08/15/18 06/10/25 History iron) tablet ascorbic acid (vitamin C) 500 mg 1,000 mg PO LUNCH Sup plement 11/25/20 06/01/25 12:50 History tablet calcium carbonate (Calcium 600) 600 mg PO DAILY supple ment 12/29/21 06/01/25 09:00 History clopidogrel 75 mg tablet 75 mg PO DAILY Blood clots # 90 tabs 10/23/24 06/01/25 09:00 Rx Lactobacillus acidophilus 600 mg PO QDAY gi 03/07/25 0 06/01/25 09:00 History (Acidophilus capsule) pregabalin 100 mg capsule 100 mg PO TID nerve pain 06/01/25 12:50 History simvastatin 20 mg tablet 20 mg PO QHS cholesterol #30 tabs 03/23/25 05/31/25 20:15 Rx nystatin 100,000 unit/gram topical 1 applic topical BI D PRN rash 05/07/25 Unknown History powder ([facility]) acetaminophen 650 mg 650 mg PO Q12H PRN pain 04/20 Unknown History tablet,extended release amlodipine 5 mg tablet 5 mg PO DAILY HTN #90 tabs 0 05/12/25 06/01/25 09:00 Rx metoprolol succinate 25 mg 12.5 mg (1/2 x 25 mg) PO DA FABIAN 05/12/25 06/01/25 09:00 Rx tablet,extended release 24 hr HEART RATE #45 tabs glimepiride 2 mg tablet 2 mg PO BID Diabetes 5 Unknown History menthol 0.44 %-zinc oxide 20.6 % 1 applic topical BID Skin 05/28/25 Unknown Rx topical ointment (Calmoseptine) Irritation #0 grams oxycodone 5 mg tablet 5 mg PO Q4H PRN PRN Pain Sco re 05/28/25 05/30/25 Rx 4-10 #0 tabs Allergy/AdvReac Type Severity Reaction Status Date / Time Sulfa (Sulfonamide Allergy Unknown Verified 06/12/25 09:37 Antibiotics) Family History Father CAD (coronary artery disease) Heart disease Hypertension CVA (cerebral vascular accident) Mother COPD (chronic obstructive pulmonary disease) Hypertension Heart disease Heart failure Surgical History History of cardiac catheterization History of colonoscopy History of foot surgery History of repair of left rotator cuff History of total left knee replacement (~2014) History of angioplasty of peripheral vessel (~2012) amputation left toe History of left heart catheterization (~01/20/14) Social History household members: none Smoking Status: Former smoker how long ago did patient quit smokin years ago alcohol intake: never substance use type: does not use caffeine: No Physical Exam Const alert, oriented x3 and no apparent distress HEENT normocephalic, head/scalp atraumatic and external nose normal Eyes General Eye: normal appearance of both eyes Neck General: normal visual inspection Resp normal respiratory effort Effort and Inspection: able to speak in complete sentences Extremity Extremity Narrative: RUE with 1+ edema L groin incision site with superficial dehiscence proximally; steri-strips intact and keeping skin edges well apposed, minimal serosanguineous drainage on the overlying mepilex dressing. No associated erythema, focal edema, foul odor, purulent drainage. Neuro Speech: speech normal Psych mental status grossly normal Appearance: grossly normal Lab / Micro Data 06/19/25 08:20 06/16/25 05:28 Labs: Laboratory Results - last 24 hr 06/18/25 16:54: POC Glucose 164 H 06/18/25 17:30: Random Vancomycin 17.9 H 06/19/25 06:33: POC Glucose 135 H 06/19/25 08:20: Hgb 9.8 L, Hct 30.8 L Charges/Coding Procedures Integumentary [id number]: [id number] Global Visit
--- NOTE | 2025-06-19 15:34 | WOUNDNOTE ---
wound photo: left medial ankle
--- NOTE | 2025-06-19 15:34 | WOUNDNOTE ---
wound photo: left lower leg
--- NOTE | 2025-06-19 15:35 | WOUNDNOTE ---
wound photo: left lower leg
--- NOTE | 2025-06-19 15:36 | WOUNDNOTE ---
wound photo: left lateral foot
--- NOTE | 2025-06-19 15:36 | WOUNDNOTE ---
wound photo: left heel
--- NOTE | 2025-06-19 15:37 | WOUNDNOTE ---
wound photo: right lateral heel
[2025-06-19 17:18] VITALS: PULSE 95; RESP 16; O2SAT 96
[2025-06-20] MEDS: 0.9% Saline Lock 10 ML Syringe IV ×2 (05:03→14:29)
[2025-06-20] MEDS: Ampicillin/Sulbactam 3 GM in 0.9% Normal Saline (100mL MB+) 100 ML IV ×3 (05:12→21:22)
[2025-06-20] MEDS: Vancomycin 125 MG/5 ML Susp PO.SYRINGE PO ×3 (05:57→17:00)
[2025-06-20] MEDS: Vancomycin Trough/Random Due 1 LAB MC ×2 (07:00→19:34)
[2025-06-20 07:45] LABS: Hematocrit 25.4 % (37-47); Hemoglobin 8.4 g/dL (12.0-15.0)
[2025-06-20 08:14] LABS: Estimated Creatinine Clearance 59.57 ml/min (50-250); Vancomycin, Trough Level 20.2 ug/mL (5.0-15.0)
--- NOTE | 2025-06-20 08:52 | PCM.RX.CS ---
Consult Antibiotic Management Pharmacy has been consulted to manage selected antibiotic: Vancomycin Type of Intervention Type of Consult: Follow-up Suspected Infection Suspected Infection: Osteomyelitis Labs Labs: Sodium 141 mmol/L (133-145) 06/16/25 05:28 Potassium 3.9 mmol/L (3.3-5.1) 06/16/25 05:28 Chloride 113 mmol/L (98-108) H 06/16/25 05:28 Carbon Dioxide 19.0 mmol/L (21.0-32.0) L 06/16/25 05:28 Anion Gap 9 (5-15) 06/16/25 05:28 BUN 47 mg/dL (4-19) H 06/16/25 05:28 Creatinine 0.90 mg/dL (0.70-1.20) 06/20/25 07:03 Est GFR (MDRD) Non-Af 67 (>60) 06/20/25 07:03 BUN/Creatinine Ratio 43.4 RATIO (10-20) H 06/16/25 05:28 Glucose 167 mg/dL (70-99) H 06/16/25 05:28 Vancomycin Trough 20.2 ug/mL (5.0-15.0) H 06/20/25 07:03 Random Vancomycin 17.9 ug/mL (0.0-15.0) H 06/18/25 17:30 Microbiology Microbiology: Microbiology 06/16/25 20:50 Stool Stool Occult Blood (ERICA) - Final Occult Blood Positive 06/10/25 11:36 Blood Culture (Wb) - Anticubital Right Blood Culture - Final No growth in 5 days. 06/10/25 11:29 Blood Culture (Wb) - Anticubital Left Blood Culture - Final No growth in 5 days. 06/10/25 13:30 Wound Drainage - Aerobic & Anaerobic Swabs Gram Stain - Final 06/10/25 13:30 Wound Drainage - Aerobic & Anaerobic Swabs Wound Culture - Final Stenotrophomonas maltophilia Acinetobacter baumannii Meth. resistant Staph. aureus 06/10/25 13:30 Wound Drainage - Aerobic & Anaerobic Swabs Anaerobic Culture - Final No anaerobic bacteria isolated. 06/10/25 11:25 Urine Catheter - Catheter Urine Culture - Final Enterobacter asburiae 06/10/25 13:15 Stool C. difficile GDH Antigen & Toxins - Final Toxigenic C. difficile 06/10/25 13:15 Stool Clostridioides difficile (PCR) - Final 06/10/25 10:48 Mucosa - Nasopharyngeal Respiratory Panel (PCR) - Final 06/10/25 11:32 Nasal Secretion SARS-CoV-2 Antigen (Rapid) - Final 06/03/25 Unknown Stool Stool Occult Blood (ERICA) - Final Occult Blood Positive Pharmacy Plan for Drug Dosing Pharmacy Plan for Drug Dosing: VANCOMYCIN LEVEL RECEIVED Current Vancomycin Dose: 500MG Q12 Number of Doses Received: MANY Vancomycin Level: 20.2 mg/dL Hours Since Last Dose: 11.5 Renal Function: SCr 0.9 mg/dL, CrCl 60 mL/min Renal Function Trend: improved Vancomycin Plan/Comments: 11.5 hour trough is slightly supratherapeutic at 20.2 mg/dL (goal 15-20). Will hold dosing for now and get a random level in 12 hours. Pending Level: 06/20/25 @ 1900 - random Pharmacy Service will continue to monitor and adjust dosing as required.
[2025-06-20 09:57] VITALS: BP 132/45; PULSE 66; RESP 15; TEMP 36.7; O2SAT 98
[2025-06-20] MEDS: Lactobacillis Acidophilus 1 CAP PO (10:04)
[2025-06-20] MEDS: DAKIN'S SOL HALF STRENGTH (=0.25%) TOPICAL (10:04)
[2025-06-20 10:05] VITALS: PULSE 66
[2025-06-20] MEDS: Metoprolol(XL)Succ 25 MG Tablet 6.25 MG PO (10:05)
[2025-06-20 20:54] LABS: Vancomycin, Random Level 16.7 ug/mL (0.0-15.0)
--- NOTE | 2025-06-20 21:18 | PCM.RX.CS ---
Consult Antibiotic Management Pharmacy has been consulted to manage selected antibiotic: Vancomycin Type of Intervention Type of Consult: Follow-up Suspected Infection Suspected Infection: Osteomyelitis Labs Labs: Sodium 141 mmol/L (133-145) 06/16/25 05:28 Potassium 3.9 mmol/L (3.3-5.1) 06/16/25 05:28 Chloride 113 mmol/L (98-108) H 06/16/25 05:28 Carbon Dioxide 19.0 mmol/L (21.0-32.0) L 06/16/25 05:28 Anion Gap 9 (5-15) 06/16/25 05:28 BUN 47 mg/dL (4-19) H 06/16/25 05:28 Creatinine 0.90 mg/dL (0.70-1.20) 06/20/25 07:03 Est GFR (MDRD) Non-Af 67 (>60) 06/20/25 07:03 BUN/Creatinine Ratio 43.4 RATIO (10-20) H 06/16/25 05:28 Glucose 167 mg/dL (70-99) H 06/16/25 05:28 Vancomycin Trough 20.2 ug/mL (5.0-15.0) H 06/20/25 07:03 Random Vancomycin 16.7 ug/mL (0.0-15.0) H 06/20/25 19:20 Microbiology Microbiology: Microbiology 06/16/25 20:50 Stool Stool Occult Blood (ERICA) - Final Occult Blood Positive 06/10/25 11:36 Blood Culture (Wb) - Anticubital Right Blood Culture - Final No growth in 5 days. 06/10/25 11:29 Blood Culture (Wb) - Anticubital Left Blood Culture - Final No growth in 5 days. 06/10/25 13:30 Wound Drainage - Aerobic & Anaerobic Swabs Gram Stain - Final 06/10/25 13:30 Wound Drainage - Aerobic & Anaerobic Swabs Wound Culture - Final Stenotrophomonas maltophilia Acinetobacter baumannii Meth. resistant Staph. aureus 06/10/25 13:30 Wound Drainage - Aerobic & Anaerobic Swabs Anaerobic Culture - Final No anaerobic bacteria isolated. 06/10/25 11:25 Urine Catheter - Catheter Urine Culture - Final Enterobacter asburiae 06/10/25 13:15 Stool C. difficile GDH Antigen & Toxins - Final Toxigenic C. difficile 06/10/25 13:15 Stool Clostridioides difficile (PCR) - Final 06/10/25 10:48 Mucosa - Nasopharyngeal Respiratory Panel (PCR) - Final 06/10/25 11:32 Nasal Secretion SARS-CoV-2 Antigen (Rapid) - Final 06/03/25 Unknown Stool Stool Occult Blood (ERICA) - Final Occult Blood Positive Dosing Weight Weight used for dosin.5 kg Estimated Creatinine Clearance Estimated Creatinine Clearance: 60 Goal Trough Goal Trough: 15-20 mcg/mL Pharmacy Plan for Drug Dosing Pharmacy Plan for Drug Dosing: Random vancomycin level was 16.7. This was drawn 24hrs since last dose was hung. Per dosing calculator, a new dose of 1000mg q24hrs should give and estimated trough of 17.4. Will initiate now and draw a trough level prior to third dose of the new regimen. Pharmacy Service will continue to monitor and adjust dosing as required. Follow-Up Labs Follow-Up Labs: Trough: Vancomycin Date/Time Labs Ordered Labs to be done on [date and time ordered]: 06/22/25 @2100
[2025-06-20] MEDS: 0.9% Normal Saline (250mL Bag) 250 ML 150 ML IV (21:23)
[2025-06-20 22:00] VITALS: RESP 16
[2025-06-20] MEDS: Vancomycin HCl 1,000 MG in 0.9% Normal Saline (250mL Bag) 250 ML 250 MG IV (22:28)
[2025-06-21] MEDS: Vancomycin 125 MG/5 ML Susp PO.SYRINGE PO ×5 (01:06→23:07)
[2025-06-21] MEDS: Ampicillin/Sulbactam 3 GM in 0.9% Normal Saline (100mL MB+) 100 ML IV ×3 (05:36→22:47)
[2025-06-21 07:16] LABS: Hematocrit 30.0 % (37-47); Hemoglobin 9.5 g/dL (12.0-15.0)
[2025-06-21 09:04] VITALS: BP 113/43; PULSE 58; RESP 17; TEMP 36.9; O2SAT 99
[2025-06-21] MEDS: Lactobacillis Acidophilus 1 CAP PO (09:05)
[2025-06-21 09:06] VITALS: PULSE 58
[2025-06-21] MEDS: DAKIN'S SOL HALF STRENGTH (=0.25%) TOPICAL (09:06)
[2025-06-21] MEDS: Metoprolol(XL)Succ 25 MG Tablet 6.25 MG PO (09:06)
[2025-06-21 17:00] VITALS: RESP 15
[2025-06-21] MEDS: Vancomycin HCl 1,000 MG in 0.9% Normal Saline (250mL Bag) 250 ML 250 MG IV (21:25)
[2025-06-22 05:51] LABS: Hematocrit 25.4 % (37-47); Hemoglobin 8.3 g/dL (12.0-15.0)
[2025-06-22] MEDS: Vancomycin 125 MG/5 ML Susp PO.SYRINGE PO ×4 (06:28→23:23)
[2025-06-22] MEDS: Ampicillin/Sulbactam 3 GM in 0.9% Normal Saline (100mL MB+) 100 ML IV ×3 (06:29→22:02)
[2025-06-22] MEDS: 0.9% Normal Saline (250mL Bag) 250 ML 15 ML IV (06:30)
[2025-06-22 10:24] VITALS: PULSE 50
[2025-06-22] MEDS: Lactobacillis Acidophilus 1 CAP PO (10:24)
[2025-06-22] MEDS: Metoprolol(XL)Succ 25 MG Tablet 6.25 MG PO (10:24)
[2025-06-22 10:35] VITALS: BP 135/50; PULSE 56; RESP 16; TEMP 36.4; O2SAT 97
--- NOTE | 2025-06-22 11:28 | PCM.PN.ID ---
Physical Exam Narrative Feeling better, pain in feet improved, no fever, no n/v/d. Const alert and no apparent distress General Appearance: cooperative Resp normal air movement and clear to auscultation bilaterally Cardio regular rate and regular rhythm GI soft to palpation, non-tender and non-distended Skin Skin Narrative: feet wrapped ID ID: Route of nutrition/ use of supplements: [] Nutritional Intake: [] IV Site: [] Null Catheter: [] Assessment & Plan Assessment/Plan (1) Type 2 diabetes mellitus with foot ulcer: PLAN: Prior wound cx with MRSA, Acinetobacter, prevotella, and anaerobes. Developed fever, worsened ankle wound, cxs sent. Now cdiff (+). Started po vanc. Wound cx with MRSA, AcB, steno. Will cont iv vanc, unasyn, and levaquin. Cont po vanc. Plan on 6 weeks of abx, stop date 07/28/25. Will follow (2) C. difficile diarrhea:
[2025-06-22] MEDS: 0.9% Saline Lock 10 ML Syringe IV (14:29)
--- NOTE | 2025-06-22 17:18 | NURSING ---
attempted to change pt dressings to BLE's but pt wanting to wait until dr Irene shows up. he may show up late, if he doesn't show up after five-thirty then you can change them. It just wouldn't surprise me if he did show up this late
[2025-06-22] MEDS: DAKIN'S SOL HALF STRENGTH (=0.25%) TOPICAL (18:08)
[2025-06-22 18:36] VITALS: PULSE 57; RESP 17; O2SAT 97
[2025-06-22] MEDS: Vancomycin Trough/Random Due 1 LAB MC (21:35)
[2025-06-22 22:05] LABS: Vancomycin, Trough Level 17.4 ug/mL (5.0-15.0)
--- NOTE | 2025-06-22 22:16 | PCM.RX.CS ---
Consult Antibiotic Management Pharmacy has been consulted to manage selected antibiotic: Vancomycin Type of Intervention Type of Consult: Follow-up Suspected Infection Suspected Infection: Osteomyelitis Labs Labs: Sodium 141 mmol/L (133-145) 06/16/25 05:28 Potassium 3.9 mmol/L (3.3-5.1) 06/16/25 05:28 Chloride 113 mmol/L (98-108) H 06/16/25 05:28 Carbon Dioxide 19.0 mmol/L (21.0-32.0) L 06/16/25 05:28 Anion Gap 9 (5-15) 06/16/25 05:28 BUN 47 mg/dL (4-19) H 06/16/25 05:28 Creatinine 0.90 mg/dL (0.70-1.20) 06/20/25 07:03 Est GFR (MDRD) Non-Af 67 (>60) 06/20/25 07:03 BUN/Creatinine Ratio 43.4 RATIO (10-20) H 06/16/25 05:28 Glucose 167 mg/dL (70-99) H 06/16/25 05:28 Vancomycin Trough 17.4 ug/mL (5.0-15.0) H 06/22/25 20:39 Random Vancomycin 16.7 ug/mL (0.0-15.0) H 06/20/25 19:20 Microbiology Microbiology: Microbiology 06/16/25 20:50 Stool Stool Occult Blood (ERICA) - Final Occult Blood Positive 06/10/25 11:36 Blood Culture (Wb) - Anticubital Right Blood Culture - Final No growth in 5 days. 06/10/25 11:29 Blood Culture (Wb) - Anticubital Left Blood Culture - Final No growth in 5 days. 06/10/25 13:30 Wound Drainage - Aerobic & Anaerobic Swabs Gram Stain - Final 06/10/25 13:30 Wound Drainage - Aerobic & Anaerobic Swabs Wound Culture - Final Stenotrophomonas maltophilia Acinetobacter baumannii Meth. resistant Staph. aureus 06/10/25 13:30 Wound Drainage - Aerobic & Anaerobic Swabs Anaerobic Culture - Final No anaerobic bacteria isolated. 06/10/25 11:25 Urine Catheter - Catheter Urine Culture - Final Enterobacter asburiae 06/10/25 13:15 Stool C. difficile GDH Antigen & Toxins - Final Toxigenic C. difficile 06/10/25 13:15 Stool Clostridioides difficile (PCR) - Final 06/10/25 10:48 Mucosa - Nasopharyngeal Respiratory Panel (PCR) - Final 06/10/25 11:32 Nasal Secretion SARS-CoV-2 Antigen (Rapid) - Final 06/03/25 Unknown Stool Stool Occult Blood (ERICA) - Final Occult Blood Positive Dosing Weight Weight used for dosin.5 kg Estimated Creatinine Clearance Estimated Creatinine Clearance: 60 Goal Trough Goal Trough: 15-20 mcg/mL Pharmacy Plan for Drug Dosing Pharmacy Plan for Drug Dosing: Vancomycin trough level of 17.4, drawn 23.2hrs post-dose, was within the target range of 15-20. Will continue dosing at 1000mg q24h and will draw another trough level in two days. Pharmacy Service will continue to monitor and adjust dosing as required. Follow-Up Labs Follow-Up Labs: Trough: Vancomycin Date/Time Labs Ordered Labs to be done on [date and time ordered]: 06/24/25 @2100
[2025-06-22] MEDS: Vancomycin HCl 1,000 MG in 0.9% Normal Saline (250mL Bag) 250 ML 250 MG IV (23:21)
[2025-06-23] MEDS: Vancomycin 125 MG/5 ML Susp PO.SYRINGE PO ×4 (04:31→23:08)
[2025-06-23 04:37] VITALS: PULSE 56; RESP 16; O2SAT 98
[2025-06-23 06:00] VITALS: BMI 28.1
[2025-06-23] MEDS: Ampicillin/Sulbactam 3 GM in 0.9% Normal Saline (100mL MB+) 100 ML IV ×3 (06:14→23:06)
[2025-06-23 06:17] LABS: Hematocrit 26.6 % (37-47); Hemoglobin 8.5 g/dL (12.0-15.0); Immature Granulocytes Count 0.030 X10^3/uL (0.0-0.0); Mean Corp Hgb Conc 32.0 g/dL (32-36); Mean Corpuscular Volume 90.5 fL (81-99); Mean Platelet Vol. 11.4 fl (6.2-12.0); NRBC Flagged by Analyzer 0 % (0-5); Platelet Count 176 K/mm3 (150-450); RBC Distribution Width CV 16.8 % (11.6-14.6); RBC Distribution Width SD 54.4 fl (35.1-43.9); Red Blood Count 2.94 M/mm3 (4.2-5.4); White Blood Count 4.6 K/mm3 (4.4-11.0)
[2025-06-23 06:38] LABS: Anion Gap 9 (5-15); BUN 42 mg/dL (4-19); BUN/Creat Ratio 46.7 RATIO (10-20); Calcium,Total 8.4 mg/dL (7.6-11.0); Carbon Dioxide 23.0 mmol/L (21.0-32.0); Chloride 112 mmol/L (98-108); Estimated Creatinine Clearance 59.57 ml/min (50-250); Glucose 78 mg/dL (70-99); Potassium 3.7 mmol/L (3.3-5.1)
[2025-06-23 09:40] VITALS: BP 146/47; PULSE 53; RESP 16; TEMP 36.8; O2SAT 96
[2025-06-23 09:46] VITALS: BP 146/47; PULSE 53
[2025-06-23] MEDS: Metoprolol(XL)Succ 25 MG Tablet 6.25 MG PO (09:46)
[2025-06-23] MEDS: Lactobacillis Acidophilus 1 CAP PO (09:48)
--- NOTE | 2025-06-23 11:30 | NURSING ---
Spoke with Dr Irene's office. They will send him a message asking if he will be coming to complete the debridement.
[2025-06-23] MEDS: 0.9% Saline Lock 10 ML Syringe IV ×2 (14:37→20:51)
[2025-06-23] MEDS: DAKIN'S SOL HALF STRENGTH (=0.25%) TOPICAL (14:38)
--- NOTE | 2025-06-23 14:55 | WOUNDNOTE ---
wound photo: left medial ankle
--- NOTE | 2025-06-23 14:56 | WOUNDNOTE ---
wound photo: left medial lower leg
--- NOTE | 2025-06-23 14:57 | WOUNDNOTE ---
wound photo: left lateral foot
--- NOTE | 2025-06-23 14:58 | WOUNDNOTE ---
wound photo: left heel
--- NOTE | 2025-06-23 14:58 | WOUNDNOTE ---
wound photo: right lateral heel
--- NOTE | 2025-06-23 14:59 | WOUNDNOTE ---
wound photo: left lower abdomen
--- NOTE | 2025-06-23 17:57 | PN.SURG_ITS ---
Subjective Subjective Ms. Fuller is a 75-year-old diabetic female seen at bedside today for evaluation of bilateral full-thickness wound. Her bilateral lower extremities are wrapped at this time. Her cousin was present. She has been working with therapy and states that she is having some discomfort with touch to the right heel only. She has been involved with wound care and dressing changes every other day. She denies any acute events overnight. Her C. difficile is improving. She does have some swelling in the right arm secondary to a blood clot but vascular surgery is on board and well aware. Overall she is doing well. She denies trauma. Denies constitutional symptoms. No other pedal complaints at this time. Objective Data Objective Data Vital Signs: Vital Signs Temp Pulse Resp BP Pulse Ox O2 Del Method 98.3 F 53 L 16 146/47 H 96 Room Air 06/23/25 09:40 06/23/25 09:46 06/23/25 09:40 06/23/25 09:46 06/23/25 09:40 06/23/25 09:40 Oxygen Delivery Method Room Air Weight: 79.197 kg Body Mass Index (BMI) 28.1 Intake & Output: Intake and Output for Last 24 Hours 06/21/25 06/22/25 06/23/25 23:59 23:59 23:59 Intake Total 1530 / 1530 1140 / 1140 1320 / 1320 Balance 1530 / 1530 1140 / 1140 1320 / 1320 Lab / Micro Data 06/23/25 05:50 06/23/25 05:50 Labs: Laboratory Results - last 24 hr 06/22/25 20:39: Vancomycin Trough 17.4 H 06/23/25 05:50: WBC 4.6, RBC 2.94 L, Hgb 8.5 L, Hct 26.6 L, MCV 90.5, MCH 28.9, MCHC 32.0, RDW Std Deviation 54.4 H, RDW Coeff of Jorgito 16.8 H, Plt Count 176, MPV 11.4, Immature Gran % (Auto) 0.700, Neut % (Auto) 50.9, Lymph % (Auto) 24.8, M manda % (Auto) 12.7 H, Eos % (Auto) 9.4 H, Baso % (Auto) 1.5 H, Absolute Neuts (auto) 2.3, Absolute Lymphs (auto) 1.13, Nucleated RBC % 0, Sodium 144, Potassium 3.7, Chloride 112 H, Carbon Dioxide 23.0, Anion Gap 9, BUN 42 H, Creatinine 0.90, Estim Creat Clear Calc 59.57, Est GFR (MDRD) Non-Af 68, B UN/Creatinine Ratio 46.7 H, Glucose 78, Calcium 8.4 06/23/25 06:00: POC Glucose 70 L 06/23/25 16:43: POC Glucose 115 H Micro: Microbiology 06/16/25 20:50 Stool Stool Occult Blood (ERICA) - Final Occult Blood Positive 06/10/25 11:36 Blood Culture (Wb) - Anticubital Right Blood Culture - Final No growth in 5 days. 06/10/25 11:29 Blood Culture (Wb) - Anticubital Left Blood Culture - Final No growth in 5 days. 06/10/25 13:30 Wound Drainage - Aerobic & Anaerobic Swabs Gram Stain - Final 06/10/25 13:30 Wound Drainage - Aerobic & Anaerobic Swabs Wound Culture - Final Stenotrophomonas maltophilia Acinetobacter baumannii Meth. resistant Staph. aureus 06/10/25 13:30 Wound Drainage - Aerobic & Anaerobic Swabs Anaerobic Culture - Final No anaerobic bacteria isolated. 06/10/25 11:25 Urine Catheter - Catheter Urine Culture - Final Enterobacter asburiae 06/10/25 13:15 Stool C. difficile GDH Antigen & Toxins - Final Toxigenic C. difficile 06/10/25 13:15 Stool Clostridioides difficile (PCR) - Final 06/10/25 10:48 Mucosa - Nasopharyngeal Respiratory Panel (PCR) - Final 06/10/25 11:32 Nasal Secretion SARS-CoV-2 Antigen (Rapid) - Final 06/03/25 Unknown Stool Stool Occult Blood (ERICA) - Final Occult Blood Positive Physical Exam Narrative Neurovascular status is unchanged. Nonpitting edema appreciated distal and proximal aspects of the bilateral lower extremity dressings. No pain on palpation over the dressing to the left anterior medial ankle wound. Mild pain on palpation to the lateral full-thickness wound of the right heel. No pain with calf compression bilateral. Const oriented x3 and no apparent distress Assessment & Plan Assessment/Plan (1) 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 foot with fat layer exposed: PLAN: Patient was examined and evaluated. All findings were discussed with the patient. All questions were answered to the patient satisfaction. Patient will continue to get dressing changes by wound care nurse consisting of Dakin's soaked gauze, dry sterile dressing and compression wrap to the bilateral extremity. Please change daily. 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 WBC: 4.6 Glu:115 Medicine: On board, medical management Infectious disease: On boards. cont iv vanc, unasyn, and levaquin. Cont po vanc. Plan on 6 weeks of abx, stop date 07/28/25. Podiatry will continue to follow patient while she is in house. Please continue daily dressing changes with Dakin soaked gauze, dry sterile dressing and bilateral compression wraps. Will plan for bedside debridement Sunday Please reach out to Dr. Irene with any question or concerns. Thank you for letting me be involved in the patient care. (2) Non-pressure chronic ulcer of other part of right foot with fat layer exposed: (3) Other specified peripheral vascular diseases: (4) Charcot joint of foot: QUALIFIERS: Laterality: unspecified laterality Qualified Code(s): M14.679 - Charcot's joint, unspecified ankle and foot
[2025-06-23] MEDS: Vancomycin HCl 1,000 MG in 0.9% Normal Saline (250mL Bag) 250 ML 250 MG IV (20:52)
[2025-06-23] MEDS: 0.9% Normal Saline (250mL Bag) 250 ML 15 ML IV (20:55)
[2025-06-24 05:30] VITALS: RESP 16
[2025-06-24] MEDS: Vancomycin 125 MG/5 ML Susp PO.SYRINGE PO ×4 (05:36→23:00)
[2025-06-24] MEDS: Ampicillin/Sulbactam 3 GM in 0.9% Normal Saline (100mL MB+) 100 ML IV ×3 (05:38→21:09)
[2025-06-24] MEDS: 0.9% Saline Lock 10 ML Syringe IV ×4 (05:39→22:37)
[2025-06-24] MEDS: Lactobacillis Acidophilus 1 CAP PO (10:35)
[2025-06-24 10:38] VITALS: PULSE 55
[2025-06-24] MEDS: Metoprolol(XL)Succ 25 MG Tablet 6.25 MG PO (10:38)
[2025-06-24 10:51] LABS: Hematocrit 27.6 % (37-47); Hemoglobin 8.6 g/dL (12.0-15.0)
[2025-06-24 10:57] VITALS: BP 130/40; PULSE 54; RESP 16; TEMP 36.7; O2SAT 97
--- NOTE | 2025-06-24 11:50 | WOUNDNOTE ---
Talked with Dr Irene who plans to come see patient later today and debride wounds. topical lidocaine has been ordered and is in the room. all supplies requested are in the room as well. Dr Irene plans to come early evening after a surgical case this afternoon.
--- NOTE | 2025-06-24 12:47 | NURSING ---
dr Irene here with wound nurse to assess BLE's and dressing changes
--- NOTE | 2025-06-24 13:03 | PCM.PN.SRG ---
Subjective Subjective Ms. Fuller is a 75-year-old diabetic female seen at the transitional care unit today for dressing changes and debridement of full-thickness wounds of bilateral extremity. Patient is doing well. She is getting IV antibiotics on schedule. She denies any pain to the bilateral extremity. She is interested in new surgical shoes. No acute events overnight. No other pedal complaints at this time. Objective Data Objective Data Vital Signs: Vital Signs Temp Pulse Resp BP Pulse Ox O2 Del Method 98.1 F 54 L 16 130/40 H 97 Room Air 06/24/25 10:57 06/24/25 10:57 06/24/25 10:57 06/24/25 10:57 06/24/25 10:57 06/24/25 10:57 Oxygen Delivery Method Room Air Weight: 79.197 kg Body Mass Index (BMI) 28.1 Intake & Output: Intake and Output for Last 24 Hours 06/22/25 06/23/25 06/24/25 23:59 23:59 23:59 Intake Total 1140 / 1140 1830 / 1830 200 / 200 Balance 1140 / 1140 1830 / 1830 200 / 200 Lab / Micro Data 06/24/25 10:45 06/23/25 05:50 Labs: Laboratory Results - last 24 hr 06/23/25 16:43: POC Glucose 115 H 06/24/25 06:15: POC Glucose 64 L 06/24/25 10:45: Hgb 8.6 L, Hct 27.6 L Micro: Microbiology 06/16/25 20:50 Stool Stool Occult Blood (ERICA) - Final Occult Blood Positive 06/10/25 11:36 Blood Culture (Wb) - Anticubital Right Blood Culture - Final No growth in 5 days. 06/10/25 11:29 Blood Culture (Wb) - Anticubital Left Blood Culture - Final No growth in 5 days. 06/10/25 13:30 Wound Drainage - Aerobic & Anaerobic Swabs Gram Stain - Final 06/10/25 13:30 Wound Drainage - Aerobic & Anaerobic Swabs Wound Culture - Final Stenotrophomonas maltophilia Acinetobacter baumannii Meth. resistant Staph. aureus 06/10/25 13:30 Wound Drainage - Aerobic & Anaerobic Swabs Anaerobic Culture - Final No anaerobic bacteria isolated. 06/10/25 11:25 Urine Catheter - Catheter Urine Culture - Final Enterobacter asburiae 06/10/25 13:15 Stool C. difficile GDH Antigen & Toxins - Final Toxigenic C. difficile 06/10/25 13:15 Stool Clostridioides difficile (PCR) - Final 06/10/25 10:48 Mucosa - Nasopharyngeal Respiratory Panel (PCR) - Final 06/10/25 11:32 Nasal Secretion SARS-CoV-2 Antigen (Rapid) - Final 06/03/25 Unknown Stool Stool Occult Blood (ERICA) - Final Occult Blood Positive Physical Exam Narrative Vascular: DP and PT pulse are palpable to the bilateral extremity. CFT is brisk. No erythema appreciated. Skin temperature is warm to warm from proximal ankles to distal digit bilateral. Neurological: Light touch intact. Patient does not monitor painful stimuli. Dermatological: Right lateral heel full-thickness wound measures 1.8 x 1.5 x 0.2 cm. Granular tissue no sign of infection. Left medial ankle full-thickness wound measures 2.5 x 2.3 x 0.2 cm. Evidence of exposed tendon with no sign of infection. Left heel full-thickness wound measuring 8.0 x 7.0 x 0.2 cm. Granular tissue with no sign of infection. Left lateral foot full-thickness wound measuring 1.0 x 1.5 x 0.3 cm. Granular tissue with no sign of infection Left posterior lower leg full-thickness wound measuring 0.5 x 0.7 x 0.1 cm. Granular tissue with no sign of infection Musculoskeletal: Mild pain to palpation to the right lateral heel wound. No pain to palpation to the remaining wounds to the left lower extremity. No pain with calf pressure. Const oriented x3 and no apparent distress Assessment & Plan Assessment/Plan (1) 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 foot with fat layer exposed: PLAN: Patient was examined and evaluated. All findings were discussed with the patient. All questions were answered to the patient satisfaction. Wound measurements: (All measurements postdebridement) Right lateral heel full-thickness wound measures 1.8 x 1.5 x 0.2 cm. Left medial ankle full-thickness wound measures 2.5 x 2.3 x 0.2 cm. Left heel full-thickness wound measuring 8.0 x 7.0 x 0.2 cm. Left lateral foot full-thickness wound measuring 1.0 x 1.5 x 0.3 cm. Left posterior lower leg full-thickness wound measuring 0.5 x 0.7 x 0.1 cm. The bilateral lower extremities are clean and patted dry. Dakin soaked gauze was applied to all full-thickness wounds followed by dry sterile dressing and single-layer Rick compression bandages were donned to the bilateral extremity. Dressing change was performed daily to every other day by wound care nurse. I did discuss with the patient that if she shows evidence of slow healing I would recommend taking her back to the operating room to perform ultrasonic debridement with skin graft substitute which she is understanding of. Patient is planning to have possible revascularization to right lower extremity so we will plan around that procedure. Medicine: On board, medical management Infectious disease: Will cont iv vanc, unasyn, and levaquin. Cont po vanc. Plan on 6 weeks of abx, stop date 07/28/25. Vascular: On board Podiatry will continue to follow the patient weekly while she is at the transitional care unit. Please reach out to Dr. Irene any questions or concerns. Thank you for letting me be involved in the patient care. 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
[2025-06-24] MEDS: Lidocaine 5% 35GM Tube 1 APPLIC TOPICAL (13:04)
[2025-06-24] MEDS: DAKIN'S SOL HALF STRENGTH (=0.25%) TOPICAL (13:04)
--- NOTE | 2025-06-24 13:37 | WOUNDNOTE ---
wound photo: right lateral heel
--- NOTE | 2025-06-24 13:37 | WOUNDNOTE ---
wound photo: left medial ankle
--- NOTE | 2025-06-24 13:38 | WOUNDNOTE ---
wound photo:left posterior lower leg
--- NOTE | 2025-06-24 13:39 | WOUNDNOTE ---
wound photo: left lateral foot
--- NOTE | 2025-06-24 13:39 | WOUNDNOTE ---
wound photo: left heel
--- NOTE | 2025-06-24 16:16 | NURSING ---
Surgical shoes that were obtained yesterday were too small, asked by wound nurse to get LG size. pt refused and stated she spoke with Dr Irene, he is to bring her the surgical shoes that he provides his pts from his office.
[2025-06-24] MEDS: Vancomycin Trough/Random Due 1 LAB MC (21:09)
[2025-06-24 21:58] LABS: Vancomycin, Trough Level 18.9 ug/mL (5.0-15.0)
[2025-06-24] MEDS: Vancomycin HCl 1,000 MG in 0.9% Normal Saline (250mL Bag) 250 ML 250 MG IV (22:39)
--- NOTE | 2025-06-25 01:43 | PCM.RX.CS ---
Consult Antibiotic Management Pharmacy has been consulted to manage selected antibiotic: Vancomycin Type of Intervention Type of Consult: Follow-up Labs Labs: Sodium 144 mmol/L (133-145) 06/23/25 05:50 Potassium 3.7 mmol/L (3.3-5.1) 06/23/25 05:50 Chloride 112 mmol/L (98-108) H 06/23/25 05:50 Carbon Dioxide 23.0 mmol/L (21.0-32.0) 06/23/25 05:50 Anion Gap 9 (5-15) 06/23/25 05:50 BUN 42 mg/dL (4-19) H 06/23/25 05:50 Creatinine 0.90 mg/dL (0.70-1.20) 06/23/25 05:50 Est GFR (MDRD) Non-Af 68 (>60) 06/23/25 05:50 BUN/Creatinine Ratio 46.7 RATIO (10-20) H 06/23/25 05:50 Glucose 78 mg/dL (70-99) 06/23/25 05:50 Vancomycin Trough 18.9 ug/mL (5.0-15.0) H 06/24/25 20:47 Random Vancomycin 16.7 ug/mL (0.0-15.0) H 06/20/25 19:20 Microbiology Microbiology: Microbiology 06/16/25 20:50 Stool Stool Occult Blood (ERICA) - Final Occult Blood Positive 06/10/25 11:36 Blood Culture (Wb) - Anticubital Right Blood Culture - Final No growth in 5 days. 06/10/25 11:29 Blood Culture (Wb) - Anticubital Left Blood Culture - Final No growth in 5 days. 06/10/25 13:30 Wound Drainage - Aerobic & Anaerobic Swabs Gram Stain - Final 06/10/25 13:30 Wound Drainage - Aerobic & Anaerobic Swabs Wound Culture - Final Stenotrophomonas maltophilia Acinetobacter baumannii Meth. resistant Staph. aureus 06/10/25 13:30 Wound Drainage - Aerobic & Anaerobic Swabs Anaerobic Culture - Final No anaerobic bacteria isolated. 06/10/25 11:25 Urine Catheter - Catheter Urine Culture - Final Enterobacter asburiae 06/10/25 13:15 Stool C. difficile GDH Antigen & Toxins - Final Toxigenic C. difficile 06/10/25 13:15 Stool Clostridioides difficile (PCR) - Final 06/10/25 10:48 Mucosa - Nasopharyngeal Respiratory Panel (PCR) - Final 06/10/25 11:32 Nasal Secretion SARS-CoV-2 Antigen (Rapid) - Final 06/03/25 Unknown Stool Stool Occult Blood (ERICA) - Final Occult Blood Positive Goal Trough Goal Trough: 15-20 mcg/mL Pharmacy Plan for Drug Dosing Pharmacy Plan for Drug Dosing: Pharmacy Service will continue to monitor and adjust dosing as required. TROUGH 18.9 @ 24 HOURS. NO CHANGES, FOLLOW UP TROUGH IN 2 DAYS Follow-Up Labs Follow-Up Labs: Trough: Vancomycin Date/Time Labs Ordered Labs to be done on [date and time ordered]: 06/26 @ 2100
[2025-06-25] MEDS: 0.9% Normal Saline (250mL Bag) 250 ML 15 ML IV (05:10)
[2025-06-25] MEDS: Ampicillin/Sulbactam 3 GM in 0.9% Normal Saline (100mL MB+) 100 ML IV ×3 (05:11→22:01)
[2025-06-25] MEDS: 0.9% Saline Lock 10 ML Syringe IV ×4 (05:11→23:08)
[2025-06-25] MEDS: Vancomycin 125 MG/5 ML Susp PO.SYRINGE PO ×3 (06:34→17:05)
--- NOTE | 2025-06-25 09:02 | PCM.PN.SRG ---
Subjective Subjective I saw Gely sitting up in the bedside chair this morning. Her RUE edema was stable. She has not noticed any adverse effects from the Lovenox to this point, no melena/hematochezia, hematuria. Her Hgb has been overall stable this last week. Reviewed wound pictures; she reports good bleeding from LLE wound with debridement yesterday. L groin incision site appears stable, she has not noted much drainage. She reports stable intermittent lateral L thigh pain with certain movements. Continued LLE heaviness and swelling. She reports she talked with her brother last night and has considered further herself, she does wish to proceed with RLE revascularization as scheduled 06/30/25. Objective Data Objective Data Vital Signs: Vital Signs Temp Pulse Resp BP Pulse Ox O2 Del Method 98.1 F 54 L 16 130/40 H 97 Room Air 06/24/25 10:57 06/24/25 10:57 06/24/25 10:57 06/24/25 10:57 06/24/25 10:57 06/24/25 10:57 Oxygen Delivery Method Room Air Weight: 174 lb 9.6 oz Body Mass Index (BMI) 28.1 Intake & Output: Intake and Output for Last 24 Hours 06/23/25 06/24/25 06/25/25 23:59 23:59 23:59 Intake Total 1830 / 1830 1460 / 1460 100 / 100 Balance 1830 / 1830 1460 / 1460 100 / 100 Lab / Micro Data 06/24/25 10:45 06/23/25 05:50 Labs: Laboratory Results - last 24 hr 06/24/25 10:45: Hgb 8.6 L, Hct 27.6 L 06/24/25 20:47: Vancomycin Trough 18.9 H 06/25/25 05:47: POC Glucose 79 Micro: Microbiology 06/16/25 20:50 Stool Stool Occult Blood (ERICA) - Final Occult Blood Positive 06/10/25 11:36 Blood Culture (Wb) - Anticubital Right Blood Culture - Final No growth in 5 days. 06/10/25 11:29 Blood Culture (Wb) - Anticubital Left Blood Culture - Final No growth in 5 days. 06/10/25 13:30 Wound Drainage - Aerobic & Anaerobic Swabs Gram Stain - Final 06/10/25 13:30 Wound Drainage - Aerobic & Anaerobic Swabs Wound Culture - Final Stenotrophomonas maltophilia Acinetobacter baumannii Meth. resistant Staph. aureus 06/10/25 13:30 Wound Drainage - Aerobic & Anaerobic Swabs Anaerobic Culture - Final No anaerobic bacteria isolated. 06/10/25 11:25 Urine Catheter - Catheter Urine Culture - Final Enterobacter asburiae 06/10/25 13:15 Stool C. difficile GDH Antigen & Toxins - Final Toxigenic C. difficile 06/10/25 13:15 Stool Clostridioides difficile (PCR) - Final 06/10/25 10:48 Mucosa - Nasopharyngeal Respiratory Panel (PCR) - Final 06/10/25 11:32 Nasal Secretion SARS-CoV-2 Antigen (Rapid) - Final 06/03/25 Unknown Stool Stool Occult Blood (ERICA) - Final Occult Blood Positive Physical Exam Const alert, oriented x3 and no apparent distress HEENT normocephalic, head/scalp atraumatic and external nose normal Eyes General Eye: normal appearance of both eyes Neck General: normal visual inspection Resp normal respiratory effort Effort and Inspection: able to speak in complete sentences Extremity Extremity Narrative: RUE with 1+ edema Neuro Speech: speech normal Psych mental status grossly normal Appearance: grossly normal Assessment & Plan Assessment/Plan (1) Deep vein thrombosis of right upper extremity: (2) PAOD (peripheral arterial occlusive disease): (3) Anemia: (4) Chronic osteomyelitis of left foot: PLAN: Plan She has been tolerating the Lovenox well so far at therapeutic dosing; Hgb has been stable around 8.5 this past week and she reports no signs of bleeding. Will continue with Lovenox at current dosing as long as it remains well tolerated and no recurrent GI bleeding. She is scheduled for R femoral endarterectomy, R femoral-tibial bypass, and R sartorius flap on 06/30/25. She does wish to proceed as scheduled. She will need to be NPO after midnight prior, she will need to hold 2 doses of Lovenox (night prior 06/29 and morning of 06/30) prior to surgery, and due to her chronic anemia and anticipated blood loss will plan Type + Screen Sunday with plan to get 2 units PRBC on hold for surgery. These orders have all been placed/updated. Please message/call myself or Dr. Clement with any questions regarding these orders. Charges/Coding Procedures Integumentary [id number]: [id number] Global Visit
[2025-06-25 09:42] VITALS: PULSE 72
[2025-06-25] MEDS: Metoprolol(XL)Succ 25 MG Tablet 6.25 MG PO (09:42)
[2025-06-25] MEDS: Lactobacillis Acidophilus 1 CAP PO ×2 (09:43)
[2025-06-25 11:18] VITALS: BP 164/43; PULSE 72; RESP 18; TEMP 36.9; O2SAT 94
[2025-06-25] MEDS: Vancomycin HCl 1,000 MG in 0.9% Normal Saline (250mL Bag) 250 ML 250 MG IV (23:09)
[2025-06-26] MEDS: 0.9% Saline Lock 10 ML Syringe IV ×4 (00:36→21:54)
[2025-06-26] MEDS: Ampicillin/Sulbactam 3 GM in 0.9% Normal Saline (100mL MB+) 100 ML IV ×3 (05:37→23:40)
--- NOTE | 2025-06-26 07:30 | NURSING ---
Patient reports discomfort/pain to PICC site RUE at times, written communication left for Dr. Al.
[2025-06-26 10:22] VITALS: PULSE 67
[2025-06-26] MEDS: Metoprolol(XL)Succ 25 MG Tablet 6.25 MG PO (10:22)
[2025-06-26] MEDS: Neuropathy Pain Cream Compound 60 CLICK TUBE TOPICAL ×2 (10:30→17:01)
[2025-06-26 16:00] VITALS: BP 164/47; PULSE 67; RESP 18; TEMP 36.7; O2SAT 96
[2025-06-26 21:23] LABS: Vancomycin, Trough Level 19.9 ug/mL (5.0-15.0)
--- NOTE | 2025-06-26 21:47 | PCM.RX.CS ---
Consult Antibiotic Management Pharmacy has been consulted to manage selected antibiotic: Vancomycin Type of Intervention Type of Consult: Follow-up Labs Labs: Sodium 144 mmol/L (133-145) 06/23/25 05:50 Potassium 3.7 mmol/L (3.3-5.1) 06/23/25 05:50 Chloride 112 mmol/L (98-108) H 06/23/25 05:50 Carbon Dioxide 23.0 mmol/L (21.0-32.0) 06/23/25 05:50 Anion Gap 9 (5-15) 06/23/25 05:50 BUN 42 mg/dL (4-19) H 06/23/25 05:50 Creatinine 0.90 mg/dL (0.70-1.20) 06/23/25 05:50 Est GFR (MDRD) Non-Af 68 (>60) 06/23/25 05:50 BUN/Creatinine Ratio 46.7 RATIO (10-20) H 06/23/25 05:50 Glucose 78 mg/dL (70-99) 06/23/25 05:50 Vancomycin Trough 19.9 ug/mL (5.0-15.0) H 06/26/25 20:50 Random Vancomycin 16.7 ug/mL (0.0-15.0) H 06/20/25 19:20 Microbiology Microbiology: Microbiology 06/16/25 20:50 Stool Stool Occult Blood (ERICA) - Final Occult Blood Positive 06/10/25 11:36 Blood Culture (Wb) - Anticubital Right Blood Culture - Final No growth in 5 days. 06/10/25 11:29 Blood Culture (Wb) - Anticubital Left Blood Culture - Final No growth in 5 days. 06/10/25 13:30 Wound Drainage - Aerobic & Anaerobic Swabs Gram Stain - Final 06/10/25 13:30 Wound Drainage - Aerobic & Anaerobic Swabs Wound Culture - Final Stenotrophomonas maltophilia Acinetobacter baumannii Meth. resistant Staph. aureus 06/10/25 13:30 Wound Drainage - Aerobic & Anaerobic Swabs Anaerobic Culture - Final No anaerobic bacteria isolated. 06/10/25 11:25 Urine Catheter - Catheter Urine Culture - Final Enterobacter asburiae 06/10/25 13:15 Stool C. difficile GDH Antigen & Toxins - Final Toxigenic C. difficile 06/10/25 13:15 Stool Clostridioides difficile (PCR) - Final 06/10/25 10:48 Mucosa - Nasopharyngeal Respiratory Panel (PCR) - Final 06/10/25 11:32 Nasal Secretion SARS-CoV-2 Antigen (Rapid) - Final 06/03/25 Unknown Stool Stool Occult Blood (ERICA) - Final Occult Blood Positive Goal Trough Goal Trough: 15-20 mcg/mL Pharmacy Plan for Drug Dosing Pharmacy Plan for Drug Dosing: Pharmacy Service will continue to monitor and adjust dosing as required. TROUGH 19.9 @ 22 HOURS. NO CHANGES, FOLLOW UP TROUGH IN 2 DAYS Follow-Up Labs Follow-Up Labs: Trough: Vancomycin Date/Time Labs Ordered Labs to be done on [date and time ordered]: 06/28 @ 2100
[2025-06-26] MEDS: Vancomycin Trough/Random Due 1 LAB MC (21:53)
[2025-06-26] MEDS: Vancomycin HCl 1,000 MG in 0.9% Normal Saline (250mL Bag) 250 ML 250 MG IV (21:54)
[2025-06-27] MEDS: 0.9% Saline Lock 10 ML Syringe IV ×5 (06:47→23:41)
[2025-06-27] MEDS: Ampicillin/Sulbactam 3 GM in 0.9% Normal Saline (100mL MB+) 100 ML IV ×3 (07:15→21:08)
[2025-06-27] MEDS: Lactobacillis Acidophilus 1 CAP PO (10:11)
[2025-06-27] MEDS: DAKIN'S SOL HALF STRENGTH (=0.25%) TOPICAL (10:12)
[2025-06-27 10:14] VITALS: PULSE 60
[2025-06-27] MEDS: Metoprolol(XL)Succ 25 MG Tablet 6.25 MG PO (10:14)
[2025-06-27] MEDS: Neuropathy Pain Cream Compound 60 CLICK TUBE TOPICAL ×2 (10:22→21:18)
[2025-06-27 10:26] VITALS: BP 125/40; PULSE 60; RESP 15; TEMP 36.5; O2SAT 98
--- NOTE | 2025-06-27 12:34 | NURSING ---
pt remains in special contact precautions, all care provided in room
[2025-06-27 15:01] VITALS: PULSE 60; RESP 17; O2SAT 98
[2025-06-27] MEDS: Vancomycin HCl 1,000 MG in 0.9% Normal Saline (250mL Bag) 250 ML 250 MG IV (22:19)
--- NOTE | 2025-06-28 01:59 | NURSING ---
Enteric precautions continue, all care provided in room
[2025-06-28] MEDS: Ampicillin/Sulbactam 3 GM in 0.9% Normal Saline (100mL MB+) 100 ML IV ×3 (06:25→21:37)
[2025-06-28] MEDS: 0.9% Normal Saline (250mL Bag) 250 ML 15 ML IV (06:25)
[2025-06-28] MEDS: 0.9% Saline Lock 10 ML Syringe IV ×3 (06:28→22:57)
[2025-06-28] MEDS: Lactobacillis Acidophilus 1 CAP PO (10:24)
[2025-06-28 10:25] VITALS: PULSE 56
[2025-06-28] MEDS: Metoprolol(XL)Succ 25 MG Tablet 6.25 MG PO (10:25)
[2025-06-28 11:00] VITALS: BP 141/51; PULSE 57; RESP 17; TEMP 36.7; O2SAT 98
[2025-06-28] MEDS: DAKIN'S SOL HALF STRENGTH (=0.25%) TOPICAL (19:42)
[2025-06-28 19:55] VITALS: RESP 16; O2SAT 96
[2025-06-28] MEDS: Vancomycin Trough/Random Due 1 LAB MC (21:35)
[2025-06-28 22:30] LABS: Vancomycin, Trough Level 19.9 ug/mL (5.0-15.0)
--- NOTE | 2025-06-28 22:32 | NURSING ---
Contacted Becca in lab regarding vanc trough still pending, per Becca result should be available soon and is currently running.
[2025-06-28] MEDS: Vancomycin HCl 1,000 MG in 0.9% Normal Saline (250mL Bag) 250 ML 250 MG IV (22:57)
--- NOTE | 2025-06-29 02:24 | PCM.RX.CS ---
Consult Antibiotic Management Pharmacy has been consulted to manage selected antibiotic: Vancomycin Type of Intervention Type of Consult: Follow-up Labs Labs: Sodium 144 mmol/L (133-145) 06/23/25 05:50 Potassium 3.7 mmol/L (3.3-5.1) 06/23/25 05:50 Chloride 112 mmol/L (98-108) H 06/23/25 05:50 Carbon Dioxide 23.0 mmol/L (21.0-32.0) 06/23/25 05:50 Anion Gap 9 (5-15) 06/23/25 05:50 BUN 42 mg/dL (4-19) H 06/23/25 05:50 Creatinine 0.90 mg/dL (0.70-1.20) 06/23/25 05:50 Est GFR (MDRD) Non-Af 68 (>60) 06/23/25 05:50 BUN/Creatinine Ratio 46.7 RATIO (10-20) H 06/23/25 05:50 Glucose 78 mg/dL (70-99) 06/23/25 05:50 Vancomycin Trough 19.9 ug/mL (5.0-15.0) H 06/28/25 20:52 Random Vancomycin 16.7 ug/mL (0.0-15.0) H 06/20/25 19:20 Microbiology Microbiology: Microbiology 06/16/25 20:50 Stool Stool Occult Blood (ERICA) - Final Occult Blood Positive 06/10/25 11:36 Blood Culture (Wb) - Anticubital Right Blood Culture - Final No growth in 5 days. 06/10/25 11:29 Blood Culture (Wb) - Anticubital Left Blood Culture - Final No growth in 5 days. 06/10/25 13:30 Wound Drainage - Aerobic & Anaerobic Swabs Gram Stain - Final 06/10/25 13:30 Wound Drainage - Aerobic & Anaerobic Swabs Wound Culture - Final Stenotrophomonas maltophilia Acinetobacter baumannii Meth. resistant Staph. aureus 06/10/25 13:30 Wound Drainage - Aerobic & Anaerobic Swabs Anaerobic Culture - Final No anaerobic bacteria isolated. 06/10/25 11:25 Urine Catheter - Catheter Urine Culture - Final Enterobacter asburiae 06/10/25 13:15 Stool C. difficile GDH Antigen & Toxins - Final Toxigenic C. difficile 06/10/25 13:15 Stool Clostridioides difficile (PCR) - Final 06/10/25 10:48 Mucosa - Nasopharyngeal Respiratory Panel (PCR) - Final 06/10/25 11:32 Nasal Secretion SARS-CoV-2 Antigen (Rapid) - Final 06/03/25 Unknown Stool Stool Occult Blood (ERICA) - Final Occult Blood Positive Goal Trough Goal Trough: 15-20 mcg/mL Pharmacy Plan for Drug Dosing Pharmacy Plan for Drug Dosing: Pharmacy Service will continue to monitor and adjust dosing as required. TROUGH 19.9 @ 22.5 HOURS. NO CHANGES, FOLLOW UP TROUGH IN 4 DAYS Follow-Up Labs Follow-Up Labs: Trough: Vancomycin Date/Time Labs Ordered Labs to be done on [date and time ordered]: 07/02 @ 2100
[2025-06-29 05:40] LABS: Hematocrit 26.4 % (37-47); Hemoglobin 8.3 g/dL (12.0-15.0)
[2025-06-29] MEDS: 0.9% Saline Lock 10 ML Syringe IV ×5 (06:15→21:40)
[2025-06-29] MEDS: 0.9% Normal Saline (250mL Bag) 250 ML 15 ML IV (06:15)
[2025-06-29] MEDS: Ampicillin/Sulbactam 3 GM in 0.9% Normal Saline (100mL MB+) 100 ML IV ×3 (06:16→23:57)
--- NOTE | 2025-06-29 07:26 | NURSING ---
All care/treaments provided in pt room, remains in special contact precations.
--- NOTE | 2025-06-29 07:40 | DS.PCM_ITS ---
Providers Date of Admission: 06/01/25 Primary Care Physician: Dr. Rishi Vasquez, Consultations 06/01/25 18:53 Consult: Onc/Wound/map and chart mounter Routine Comment: Reason for Consult:: BLE skin graft sites and open areas to buttocks and coccyx 06/03/25 17:22 Consult: Gastroenterology Routine Consulting Provider: Rachael Gastroenterology Reason for Consult: Anemia, +Hemoccult. EMERGENT Consult: No MD Notified: Yes Date Notified: 06/03/25 Time Notified: 17:22 Method of Notification: Text Consult: Podiatry Routine Consulting Provider: Patel Irene Reason for Consult: Left foot osteomyelitis. EMERGENT Consult: No MD Notified: Yes Date Notified: 06/03/25 Time Notified: 17:23 Method of Notification: Text 06/04/25 09:22 Consult: Infectious Disease Routine Consulting Provider: Kwaku Mendoza Reason for Consult: wound cultures EMERGENT Consult: No MD Notified: Yes Date Notified: 06/04/25 Time Notified: 09:23 Method of Notification: Text 06/19/25 13:56 Consult: Vascular Surgery Routine Consulting Provider: Abena Fiore Reason for Consult: RUE PICC DVT; anemia, +hemoccult, aspirin/plavix, treatment option? EMERGENT Consult: No MD Notified: Yes Date Notified: 06/19/25 Time Notified: 14:34 Method of Notification: Verbal Reason For Visit: GENERALIZED WEAKNESS Diagnosis Discharge Diagnosis (1) Deep vein thrombosis of right upper extremity: Status: Acute Code(s): I82.621 - Acute embolism and thrombosis of deep veins of right upper extremity (2) PAOD (peripheral arterial occlusive disease): Status: Acute Code(s): I77.9 - Disorder of arteries and arterioles, unspecified (3) Anemia: Status: Acute Code(s): D64.9 - Anemia, unspecified (4) Chronic osteomyelitis of left foot: Status: Chronic Code(s): M86.672 - Other chronic osteomyelitis, left ankle and foot Plan 75 year old female with below past medical history hospitalized for fall, recent mrsa bacteremia, underwent left lower extremity revascularization 05/26/[address] Clement, admitted to TCU with debility, here for rehabilitation, strengthening, prior to discharge home alone. * Debility - PT/OT. * Pain - Tylenol 1000mg q6 prn pain (1-3), Oxycodone 5mg q4 prn pain (4-10). * Bowel - senna/colace 2 tablets bid, Magnesium citrate 300mL daily prn. * Adult immunization - Administer pneumonia vaccine, covid vaccine, flu vaccine as appropriate. * DVT prophylaxis - Hold, on DAPT. * Hypertension - Metoprolol succinate 12.5mg daily, Amlodipine 5mg daily. * Iron deficiency anemia - Vitamin C 1000mg daily, Ferrous sulfate 325mg daily. * PAOD s/p left lower extremity revascularization - Aspirin 81mg daily, Plavix 75mg daily. * Hyperlipidemia - Atorvastatin 10ng qhs, Purling 3 1 gram daily. * Indigestion - TUMS 500mg daily. * Diabetes Mellitus II - Glimepiride 2mg bid. * GI prophylaxis - Lactobacillus 1 capsule daily. * Skin irritation - Calomseptine topical bid. * Nutrition - MVI 1 tablet daily. * Diabetic polyneuropathy - Lyrica 100mg tid, Neuropathy pain cream 2 clicks topical bid. * Tinea Corporis - Nystatin topical bid. * Postoperative anemia - check stool for blood, transfuse 1 unit prbc. Medications at Discharge Home Medications aspirin 81 mg tablet,delayed release 81 mg PO QHS blood clots 01/13/14 multivitamin with folic acid 400 mcg tablet 1 tab PO DAILY Supplement 01/13/14 omega-3 fatty acids-fish oil 340 mg-1,000 mg capsule 1 ea PO DAILY supplement 06/29/16 ferrous sulfate 325 mg (65 mg iron) tablet 325 mg PO DAILY SUPPLEMENT 08/15/18 ascorbic acid (vitamin C) 500 mg tablet 1,000 mg PO LUNCH Supplement 11/25/20 calcium carbonate (Calcium 600) 600 mg PO DAILY supplement 12/29/21 clopidogrel 75 mg tablet 75 mg PO DAILY Blood clots #90 tabs 10/23/24 Lactobacillus acidophilus (Acidophilus capsule) 600 mg PO QDAY gi 03/07/25 pregabalin 100 mg capsule 100 mg PO TID nerve pain 03/07/25 simvastatin 20 mg tablet 20 mg PO QHS cholesterol #30 tabs 03/23/25 nystatin 100,000 unit/gram topical powder (Nyamyc) 1 applic topical BID PRN rash 05/07/25 acetaminophen 650 mg tablet,extended release 650 mg PO Q12H PRN pain 05/08/25 amlodipine 5 mg tablet 5 mg PO DAILY HTN #90 tabs 05/12/25 metoprolol succinate 25 mg tablet,extended release 24 hr 12.5 mg (1/2 x 25 mg) PO DAILY HEART RATE #45 tabs 05/12/25 glimepiride 2 mg tablet 2 mg PO BID Diabetes 05/18/25 menthol 0.44 %-zinc oxide 20.6 % topical ointment (Calmoseptine) 1 applic topical BID Skin Irritation #0 grams 05/28/25 oxycodone 5 mg tablet 5 mg PO Q4H PRN PRN Pain Score 4-10 #0 tabs 05/28/25 Hospital Course Operations - (See below.) Procedures None and EGD Summary of Care Provided Minutes Spent on Discharge: 35 Hospital Course: 75 year old female with below past medical history hospitalized for fall, recent mrsa bacteremia, underwent left lower extremity revascularization 05/26/[address] Clement, admitted to TCU with debility, here for rehabilitation, strengthening, prior to discharge home alone. 06/05/2025 Dr. Yanez EGD: Impressions : - LA Grade D erosive esophagitis with bleeding. Treated with a heater probe. - Non-bleeding gastric ulcers with no stigmata of bleeding. Biopsied. - Oozing duodenal ulcers with a visible vessel. Treated with a heater probe. - Two non-bleeding angiodysplastic lesions in the duodenum. Treated with a heater probe. Recommendations : - Return patient to referring hospital. - Use Protonix (pantoprazole) 40 mg PO BID for 3 months. - Use sucralfate tablets 1 gram PO BID for 1 month. - Continue present medications. 06/09/2025 Fever. 06/10/2025 Dr. Mendoza PLAN: Recent wound cx with MRSA, Acinetobacter, prevotella, and anaerobes. Now with fever, worsened ankle wound, cxs sent. Stool and resp panel pending. Will order picc and iv vanc/ceftriaxone/flagyl. 06/16/2025 Dr. Mendoza, diarrhea positive for c. diff. PLAN: Prior wound cx with MRSA, Acinetobacter, prevotella, and anaerobes. Developed fever, worsened ankle wound, cxs sent. Now cdiff (+). Started po vanc. Wound cx with MRSA, AcB, steno. Will change to iv vanc, unasyn, and levaquin. Cont po vanc. 06/19/2025 Doppler ultrasound right upper extremity acute dvt right subclavian vein. 06/19/2025 Abena Fiore (Vascular Surgery) consulted acute dvt right subclavian vein, right upper extremity PICC line. Plan For management of her RUE DVT, options for management would be to initiate full anticoagulation with therapeutic lovenox dosing (for her, 80mg SC Q12 hours) and close monitoring of her Hgb with daily H&H initially given recent GI bleed (with lesions treated with cautery and stable Hgb since then) or prophylactic lovenox dosing and removing PICC line and replacing in the LUE. I discussed her case with Dr. Al and also discussed both options with patient including risks and benefits with each. Gely indicated she really did not want to have the PICC line moved if possible and comfortable to try the therapeutic anticoagulation with close monitoring. In discussion with Dr. Al, his preference was also to trial therapeutic dosing given difficulty of obtaining this initial PICC line and the understanding that she requires IV antibiotic therapy for potentially an additional 6 weeks. Orders placed for lovenox and H&H to monitor. Discharge to [facility] 06/30/2025 for following: She is scheduled for R femoral endarterectomy, R femoral-tibial bypass, and R sartorius flap on 06/30/25. She does wish to proceed as scheduled. She will need to be NPO after midnight prior, she will need to hold 2 doses of Lovenox (night prior 06/29 and morning of 06/30) prior to surgery, and due to her chronic anemia and anticipated blood loss will plan Type + Screen Sunday with plan to get 2 units PRBC on hold for surgery. These orders have all been placed/updated. Please message/call myself or Dr. Clement with any questions regarding these orders. Physical Exam Const alert General Appearance: cooperative HEENT normocephalic Eyes PERRL and EOMs intact bilaterally Neck supple, no JVD and no carotid bruits Resp normal respiratory effort, normal air movement and clear to auscultation bilaterally Cardio regular rate and regular rhythm GI normal to inspection, nondistended, normoactive bowel sounds, non-tender and non-distended Extremity normal capillary refill Extremity Narrative: Left lower extremity dressed, boot. Right upper extremity PICC line. General Extremity: Negative for edema Skin no rashes or lesions noted General Skin Exam: no breakdown Psych affect normal Appearance: appropriate Weight / BMI Weight Weight: 79.197 kg Body Mass Index (BMI) 28.1 ABG / Lab / Microbiology Data 06/29/25 05:24 06/23/25 05:50 Laboratory: Laboratory Results - last 24 hr 06/28/25 16:50: POC Glucose 117 H 06/28/25 20:52: Vancomycin Trough 19.9 H 06/29/25 05:24: Hgb 8.3 L, Hct 26.4 L, Blood Type A POSITIVE, Antibody Screen NEGATIVE, Crossmatch See Detail 06/29/25 06:23: POC Glucose 118 H Microbiology: Microbiology 06/16/25 20:50 Stool Stool Occult Blood (ERICA) - Final Occult Blood Positive 06/10/25 11:36 Blood Culture (Wb) - Anticubital Right Blood Culture - Final No growth in 5 days. 06/10/25 11:29 Blood Culture (Wb) - Anticubital Left Blood Culture - Final No growth in 5 days. 06/10/25 13:30 Wound Drainage - Aerobic & Anaerobic Swabs Gram Stain - Final 06/10/25 13:30 Wound Drainage - Aerobic & Anaerobic Swabs Wound Culture - Final Stenotrophomonas maltophilia Acinetobacter baumannii Meth. resistant Staph. aureus 06/10/25 13:30 Wound Drainage - Aerobic & Anaerobic Swabs Anaerobic Culture - Final No anaerobic bacteria isolated. 06/10/25 11:25 Urine Catheter - Catheter Urine Culture - Final Enterobacter asburiae 06/10/25 13:15 Stool C. difficile GDH Antigen & Toxins - Final Toxigenic C. difficile 06/10/25 13:15 Stool Clostridioides difficile (PCR) - Final 06/10/25 10:48 Mucosa - Nasopharyngeal Respiratory Panel (PCR) - Final 06/10/25 11:32 Nasal Secretion SARS-CoV-2 Antigen (Rapid) - Final 06/03/25 Unknown Stool Stool Occult Blood (ERICA) - Final Occult Blood Positive D/C Instructions Discharge Activity: Return to Normal Activity Weight Bearing Status: Weight bearing as tolerated Call your doctor if you observe: Fever of 101 or Higher, Inability to urinate, Inability to have a bowel movement, Shortness of breath, Dizziness, Fainting spells, Swelling in the ankles, Chest pain and Uncontrolled pain DC O2, CPAP, BIPAP Needs Home O2 Discharge instructions: No Additional Instructions: Discharge to [facility] 06/30/2025 right lower extremity vascular surgery. Please Follow Up With: Patel Irene DPM Meaningful Use Info Meaningful Use Meaningful Use Diagnoses (Choose all that apply): None applicable Discharge Plan Admission Admit Date/Time: 06/01/25 18:21 Primary Reason for Your Visit: Debility. Attending Provider: Phong Al Chi Primary Care Provider: Rishi Vasquez Consulting Providers: Patel Irene; Kwaku Mendoza; Abena Fiore Instructions Additional Instructions / Restrictions: Discharge to [facility] 06/30/2025 right lower extremity vascular surgery. Discharge Orders/Prescriptions Prescriptions: No Action calcium carbonate [Calcium 600] 600 mg calcium (1,500 mg) tablet 600 mg PO DAILY nystatin [Nyamyc] 100,000 unit/gram powder 1 applic topical BID PRN (Reason: rash) Protocol: *Topical Application Instructions APPLICATION INSTRUCTIONS: apply to abdominal folds, under breasts aspirin 81 MG tablet 81 mg PO QHS multivitamin with folic acid 1 TABLET tablet 1 tab PO DAILY Patient Comments: vitamin supplement ascorbic acid (vitamin C) 500 mg tablet 1,000 mg PO LUNCH Patient Comments: supplement omega-3 fatty acids-fish oil 1 EACH capsule 1 ea PO DAILY Patient Comments: supplement ferrous sulfate 325 MG tablet 325 mg PO DAILY menthol-zinc oxide [Calmoseptine] 0.44-20.6 % Ointment 1 applic topical BID Qty: 0 0RF Protocol: *Topical Application Instructions APPLICATION INSTRUCTIONS: groin oxycodone 5 mg Tablet 5 mg PO Q4H PRN PRN (Reason: Pain Score 4-10) Qty: 0 0RF pregabalin 100 mg capsule 100 mg PO TID Acidophilus Capsule 600 mg PO QDAY acetaminophen 650 mg tablet extended release 650 mg PO Q12H PRN (Reason: pain) glimepiride 2 mg tablet 2 mg PO BID clopidogrel 75 mg tablet 75 mg PO DAILY Qty: 90 3RF Patient Comments: ask about stopping simvastatin 20 mg tablet 20 mg PO QHS Qty: 30 11RF amlodipine 5 mg tablet 5 mg PO DAILY Qty: 90 3RF metoprolol succinate 25 mg tablet extended release 24 hr 12.5 mg PO DAILY Qty: 45 3RF Referrals / Follow Up: Rishi Vasquez DO [Primary Care Provider] - Disposition Disposition (needs filled in before D/C Order can be placed): Acute Care Hospital [facility]
[2025-06-29] MEDS: Lactobacillis Acidophilus 1 CAP PO (10:21)
[2025-06-29 10:22] VITALS: PULSE 56
[2025-06-29] MEDS: Metoprolol(XL)Succ 25 MG Tablet 6.25 MG PO (10:22)
[2025-06-29 10:44] VITALS: BP 125/56; PULSE 67; RESP 16; TEMP 36.3; O2SAT 97
[2025-06-29] MEDS: DAKIN'S SOL HALF STRENGTH (=0.25%) TOPICAL (13:55)
--- NOTE | 2025-06-29 14:28 | NURSING ---
dressing changed to BLE's per wound order.
[2025-06-29 15:29] VITALS: PULSE 67; RESP 17; O2SAT 97
--- NOTE | 2025-06-29 15:59 | CASEMGMT ---
Social Work SW completed BIMS () and PHQ-2 () for MDS assessment. Katarina Bunch PEDIATRIC PHYSICIAN ASSISTANT VP [employer]ATE[employer]
[2025-06-29] MEDS: Neuropathy Pain Cream Compound 60 CLICK TUBE TOPICAL (17:06)
[2025-06-29] MEDS: Vancomycin HCl 1,000 MG in 0.9% Normal Saline (250mL Bag) 250 ML 250 MG IV (21:38)
[2025-06-30] MEDS: 0.9% Saline Lock 10 ML Syringe IV ×4 (01:53→23:40)
[2025-06-30 05:21] VITALS: BP 149/58; PULSE 52; RESP 16; TEMP 36.5; O2SAT 96
[2025-06-30 05:22] VITALS: BP 149/58; PULSE 52; RESP 16; TEMP 36.5; O2SAT 96
--- NOTE | 2025-06-30 05:45 | NURSING ---
Patient off unit for surgery. Will discharge at this time.
[2025-06-30 11:00] VITALS: BMI 29.2
[2025-06-30] MEDS: 0.9% Normal Saline (250mL Bag) 250 ML 15 ML IV (13:07)
[2025-06-30] MEDS: Ampicillin/Sulbactam 3 GM in 0.9% Normal Saline (100mL MB+) 100 ML IV ×2 (13:07→21:16)
[2025-06-30] MEDS: 0.9 % NaCl (Sterile) Posiflush 10 mL IV (13:14)
--- NOTE | 2025-06-30 14:20 | NURSING ---
Addendum entered by Ingrid Rodriguez 07/01/25 09:27: RN called and updated sister Miroslava, she will speak with brother and figure our who would be able to take her to appt and what days would work. They will let staff know. Addendum entered by Ingrid Rodriguez 07/01/25 09:23: Call from Dr. Crocker at , wants appt made to see resident. They are having imaging faxed over from Dr. Clement. [phone]. Original Note: Dr. Clement came by and discussed sending resident to an outside physician to see about having vascular procedure done. Took TCU's phone number to have them call here to see about setting up a consultation.
[2025-06-30 16:24] VITALS: BP 126/59; PULSE 86; RESP 16; TEMP 36.6; O2SAT 96
[2025-06-30 16:26] VITALS: O2SAT 96
[2025-06-30] MEDS: Vancomycin HCl 1,000 MG in 0.9% Normal Saline (250mL Bag) 250 ML 250 MG IV (22:22)
[2025-07-01] MEDS: Ampicillin/Sulbactam 3 GM in 0.9% Normal Saline (100mL MB+) 100 ML IV ×2 (05:34→13:04)
[2025-07-01] MEDS: 0.9% Saline Lock 10 ML Syringe IV ×2 (05:35→06:34)
--- NOTE | 2025-07-01 07:48 | PN.TCU_ITS ---
Subjective Subjective Patient seen, examined for regulatory visit. Following are interim events. 06/05/2025 Dr. Yanez EGD: Impressions : - LA Grade D erosive esophagitis with bleeding. Treated with a heater probe. - Non-bleeding gastric ulcers with no stigmata of bleeding. Biopsied. - Oozing duodenal ulcers with a visible vessel. Treated with a heater probe. - Two non-bleeding angiodysplastic lesions in the duodenum. Treated with a heater probe. Recommendations : - Return patient to referring hospital. - Use Protonix (pantoprazole) 40 mg PO BID for 3 months. - Use sucralfate tablets 1 gram PO BID for 1 month. - Continue present medications. 06/09/2025 Fever. 06/10/2025 Dr. Mendoza PLAN: Recent wound cx with MRSA, Acinetobacter, prevotella, and anaerobes. Now with fever, worsened ankle wound, cxs sent. Stool and resp panel pending. Will order picc and iv vanc/ceftriaxone/flagyl. 06/16/2025 Dr. Mendoza, diarrhea positive for c. diff. PLAN: Prior wound cx with MRSA, Acinetobacter, prevotella, and anaerobes. Developed fever, worsened ankle wound, cxs sent. Now cdiff (+). Started po vanc. Wound cx with MRSA, AcB, steno. Will change to iv vanc, unasyn, and levaquin. Cont po vanc. 06/19/2025 Doppler ultrasound right upper extremity acute dvt right subclavian vein. 06/19/2025 Abena Fiore (Vascular Surgery) consulted acute dvt right subclavian vein, right upper extremity PICC line. Plan For management of her RUE DVT, options for management would be to initiate full anticoagulation with therapeutic lovenox dosing (for her, 80mg SC Q12 hours) and close monitoring of her Hgb with daily H&H initially given recent GI bleed (with lesions treated with cautery and stable Hgb since then) or prophylactic lovenox dosing and removing PICC line and replacing in the LUE. I discussed her case with Dr. Al and also discussed both options with patient including risks and benefits with each. Gely indicated she really did not want to have the PICC line moved if possible and comfortable to try the therapeutic anticoagulation with close monitoring. In discussion with Dr. Al, his preference was also to trial therapeutic dosing given difficulty of obtaining this initial PICC line and the understanding that she requires IV antibiotic therapy for potentially an additional 6 weeks. Orders placed for lovenox and H&H to monitor. Discharge to [facility] 06/30/2025 for following: She is scheduled for R femoral endarterectomy, R femoral-tibial bypass, and R sartorius flap on 06/30/25. She does wish to proceed as scheduled. She will need to be NPO after midnight prior, she will need to hold 2 doses of Lovenox (night prior 06/29 and morning of 06/30) prior to surgery, and due to her chronic anemia and anticipated blood loss will plan Type + Screen Sunday with plan to get 2 units PRBC on hold for surgery. These orders have all been placed/updated. Please message/call myself or Dr. Clement with any questions regarding these orders. 06/30/2025 Dr. Clement attempted revascularization right lower extremity, surgery aborted 2/ calcification external iliac artery, no suitable site for clamp. Patient returned to TCU. Objective Data Objective Data Vital Signs: Vital Signs Temp Pulse Resp BP Pulse Ox O2 Del Method 97.8 F 86 16 126/59 H 96 Room Air 06/30/25 16:24 06/30/25 16:24 06/30/25 16:24 06/30/25 16:24 06/30/25 16:26 06/30/25 16:26 Oxygen Delivery Method Room Air Weight: 82.418 kg Body Mass Index (BMI) 29.2 Intake & Output: Intake and Output for Last 24 Hours 06/29/25 06/30/25 07/01/25 23:59 23:59 23:59 Intake Total 1812 / 1812 1400 / 1400 350 / 350 Balance 1812 / 1812 1400 / 1400 350 / 350 Lab / Micro Data 06/29/25 05:24 06/23/25 05:50 Labs: Laboratory Results - last 24 hr 07/01/25 07:19: POC Glucose 207 H Micro: Microbiology 06/16/25 20:50 Stool Stool Occult Blood (ERICA) - Final Occult Blood Positive 06/10/25 11:36 Blood Culture (Wb) - Anticubital Right Blood Culture - Final No growth in 5 days. 06/10/25 11:29 Blood Culture (Wb) - Anticubital Left Blood Culture - Final No growth in 5 days. 06/10/25 13:30 Wound Drainage - Aerobic & Anaerobic Swabs Gram Stain - Final 06/10/25 13:30 Wound Drainage - Aerobic & Anaerobic Swabs Wound Culture - Final Stenotrophomonas maltophilia Acinetobacter baumannii Meth. resistant Staph. aureus 06/10/25 13:30 Wound Drainage - Aerobic & Anaerobic Swabs Anaerobic Culture - Final No anaerobic bacteria isolated. 06/10/25 11:25 Urine Catheter - Catheter Urine Culture - Final Enterobacter asburiae 06/10/25 13:15 Stool C. difficile GDH Antigen & Toxins - Final Toxigenic C. difficile 06/10/25 13:15 Stool Clostridioides difficile (PCR) - Final 06/10/25 10:48 Mucosa - Nasopharyngeal Respiratory Panel (PCR) - Final 06/10/25 11:32 Nasal Secretion SARS-CoV-2 Antigen (Rapid) - Final 06/03/25 Unknown Stool Stool Occult Blood (ERICA) - Final Occult Blood Positive Physical Exam Const alert General Appearance: cooperative HEENT normocephalic Eyes PERRL and EOMs intact bilaterally Neck supple, no JVD and no carotid bruits Resp normal respiratory effort, normal air movement and clear to auscultation bilaterally Cardio regular rate and regular rhythm GI normal to inspection, nondistended, normoactive bowel sounds, non-tender and non-distended Extremity normal capillary refill Extremity Narrative: Left lower extremity dressed, boot. General Extremity: Negative for edema Skin no rashes or lesions noted Skin Narrative: Right groin wound VAC. General Skin Exam: no breakdown Psych affect normal Appearance: appropriate Assessment & Plan Assessment/Plan (1) Deep vein thrombosis of right upper extremity: (2) PAOD (peripheral arterial occlusive disease): (3) Anemia: (4) Chronic osteomyelitis of left foot: PLAN: Plan 75 year old female with below past medical history hospitalized for fall, recent mrsa bacteremia, underwent left lower extremity revascularization 05/26/[address] Clement, admitted to TCU with debility, here for rehabilitation, strengthening, prior to discharge home alone. * Debility - PT/OT. * Pain - Tylenol 1000mg q6 prn pain (1-3), Oxycodone 5mg q4 prn pain (4-10). * Bowel - senna/colace 2 tablets bid prn, Magnesium citrate 300mL daily prn. * Adult immunization - Administer pneumonia vaccine, covid vaccine, flu vaccine as appropriate. * DVT prophylaxis - Lovenox 80mg sc q12. * Right upper extremity dvt - Lovenox 80mg sc q12. * Osteomyelitis left foot - appreciate Dr. Mendoza, Unasyn 3gm iv q8, Levaquin 250mg daily, Vancomycin 1gm iv q24. Appreciate Dr. Irene. * Bilateral foot wounds - appreciate Annmarie Robb, Dakins daily. * Hypertension - Metoprolol succinate 6.25mg daily. * Iron deficiency anemia - Vitamin C 1000mg daily, Ferrous sulfate 325mg daily. * PAOD - Plavix 75mg daily, appreciate Dr. Clement, Abena Fiore, next step is revascularization surgery right lower extremity at [facility]. Patient is willing. * Hyperlipidemia - Atorvastatin 10ng qhs, Bishop 3 1 gram daily. * Indigestion - TUMS 500mg daily. * Diabetes Mellitus II - Glimepiride 1mg bid. * GI prophylaxis - Lactobacillus 1 capsule daily. * Skin irritation - Calmoseptine topical bid. * Nutrition - MVI 1 tablet daily. * Diabetic polyneuropathy - Lyrica 100mg tid, Neuropathy pain cream 2 clicks topical bid prn. * Tinea Corporis - Nystatin topical bid. * Gastric ulcer - Pantoprazole 40mg bid, Sucralfate 1gm bid.
[2025-07-01 08:22] LABS: Hematocrit 27.2 % (37-47); Hemoglobin 8.4 g/dL (12.0-15.0); Immature Granulocytes Count 0.040 X10^3/uL (0.0-0.0); Mean Corp Hgb Conc 30.9 g/dL (32-36); Mean Corpuscular Volume 94.1 fL (81-99); Mean Platelet Vol. 12.4 fl (6.2-12.0); NRBC Flagged by Analyzer 0 % (0-5); Platelet Count 158 K/mm3 (150-450); RBC Distribution Width CV 17.9 % (11.6-14.6); RBC Distribution Width SD 61.7 fl (35.1-43.9); Red Blood Count 2.89 M/mm3 (4.2-5.4); White Blood Count 6.9 K/mm3 (4.4-11.0)
[2025-07-01 08:31] VITALS: PULSE 53
[2025-07-01] MEDS: Metoprolol(XL)Succ 25 MG Tablet 6.25 MG PO (08:31)
[2025-07-01] MEDS: Lactobacillis Acidophilus 1 CAP PO (08:32)
[2025-07-01 08:54] LABS: Anion Gap 13 (5-15); BUN 52 mg/dL (4-19); BUN/Creat Ratio 42.7 RATIO (10-20); Calcium,Total 8.6 mg/dL (7.6-11.0); Carbon Dioxide 22.1 mmol/L (21.0-32.0); Chloride 106 mmol/L (98-108); Estimated Creatinine Clearance 44.44 ml/min (50-250); Glucose 210 mg/dL (70-99); Potassium 3.7 mmol/L (3.3-5.1)
[2025-07-01] MEDS: 0.9 % NaCl (Sterile) Posiflush 10 mL IV ×2 (13:05→23:04)
--- NOTE | 2025-07-01 14:00 | NURSING ---
Addendum entered by Ingrid Rodriguez 07/02/25 08:45: Left VM updating Julianne. Original Note: Called and spoke with Dr. Crocker's office. Staff said appt was already in the works but they would need to review the imaging and reports from [facility] vascular before scheduling. They said it could take up to 2 weeks for review to be completed and they would call to schedule appt. Did say if resident/TCU hadn't heard from them after 2 weeks to reach back out.
--- NOTE | 2025-07-01 14:00 | NURSING ---
Called and spoke with Dr. Crocker's office. Staff said appt was already in the works but they would need to review the imaging and reports from vascular before scheduling. They said it could take 2 weeks for review to be completed and
[2025-07-01] MEDS: Neuropathy Pain Cream Compound 60 CLICK TUBE TOPICAL (14:40)
[2025-07-01 16:00] VITALS: BP 141/51; PULSE 59; RESP 16; TEMP 36.6; O2SAT 99
[2025-07-01] MEDS: DAKIN'S SOL HALF STRENGTH (=0.25%) TOPICAL (16:05)
[2025-07-01 16:26] VITALS: PULSE 59; O2SAT 99
[2025-07-01] MEDS: Vancomycin HCl 1,000 MG in 0.9% Normal Saline (250mL Bag) 250 ML 250 MG IV (23:03)
[2025-07-02] MEDS: Ampicillin/Sulbactam 3 GM in 0.9% Normal Saline (100mL MB+) 100 ML IV ×4 (00:40→23:22)
[2025-07-02] MEDS: 0.9 % NaCl (Sterile) Posiflush 10 mL IV ×3 (00:41→23:28)
[2025-07-02 09:15] VITALS: BP 131/46; PULSE 61; RESP 16; TEMP 37.1
[2025-07-02] MEDS: Lactobacillis Acidophilus 1 CAP PO (09:20)
[2025-07-02] MEDS: DAKIN'S SOL HALF STRENGTH (=0.25%) TOPICAL (09:21)
[2025-07-02 09:23] VITALS: PULSE 61
[2025-07-02] MEDS: Metoprolol(XL)Succ 25 MG Tablet 6.25 MG PO (09:23)
[2025-07-02] MEDS: Neuropathy Pain Cream Compound 60 CLICK TUBE TOPICAL (09:27)
[2025-07-02] MEDS: Vancomycin Trough/Random Due 1 LAB MC (21:35)
[2025-07-02 23:19] LABS: Vancomycin, Trough Level 21.1 ug/mL (5.0-15.0)
--- NOTE | 2025-07-02 23:29 | PCM.RX.CS ---
Consult Antibiotic Management Pharmacy has been consulted to manage selected antibiotic: Vancomycin Type of Intervention Type of Consult: Follow-up Suspected Infection Suspected Infection: Osteomyelitis Labs Labs: Sodium 140 mmol/L (133-145) 07/01/25 08:08 Potassium 3.7 mmol/L (3.3-5.1) 07/01/25 08:08 Chloride 106 mmol/L (98-108) 07/01/25 08:08 Carbon Dioxide 22.1 mmol/L (21.0-32.0) 07/01/25 08:08 Anion Gap 13 (5-15) 07/01/25 08:08 BUN 52 mg/dL (4-19) H 07/01/25 08:08 Creatinine 1.22 mg/dL (0.70-1.20) H 07/01/25 08:08 Est GFR (MDRD) Non-Af 47 (>60) L 07/01/25 08:08 BUN/Creatinine Ratio 42.7 RATIO (10-20) H 07/01/25 08:08 Glucose 210 mg/dL (70-99) H 07/01/25 08:08 Vancomycin Trough 21.1 ug/mL (5.0-15.0) H 07/02/25 17:38 Random Vancomycin 16.7 ug/mL (0.0-15.0) H 06/20/25 19:20 Microbiology Microbiology: Microbiology 06/16/25 20:50 Stool Stool Occult Blood (ERICA) - Final Occult Blood Positive 06/10/25 11:36 Blood Culture (Wb) - Anticubital Right Blood Culture - Final No growth in 5 days. 06/10/25 11:29 Blood Culture (Wb) - Anticubital Left Blood Culture - Final No growth in 5 days. 06/10/25 13:30 Wound Drainage - Aerobic & Anaerobic Swabs Gram Stain - Final 06/10/25 13:30 Wound Drainage - Aerobic & Anaerobic Swabs Wound Culture - Final Stenotrophomonas maltophilia Acinetobacter baumannii Meth. resistant Staph. aureus 06/10/25 13:30 Wound Drainage - Aerobic & Anaerobic Swabs Anaerobic Culture - Final No anaerobic bacteria isolated. 06/10/25 11:25 Urine Catheter - Catheter Urine Culture - Final Enterobacter asburiae 06/10/25 13:15 Stool C. difficile GDH Antigen & Toxins - Final Toxigenic C. difficile 06/10/25 13:15 Stool Clostridioides difficile (PCR) - Final 06/10/25 10:48 Mucosa - Nasopharyngeal Respiratory Panel (PCR) - Final 06/10/25 11:32 Nasal Secretion SARS-CoV-2 Antigen (Rapid) - Final 06/03/25 Unknown Stool Stool Occult Blood (ERICA) - Final Occult Blood Positive Dosing Weight Weight used for dosin kg Estimated Creatinine Clearance Estimated Creatinine Clearance: 44 Goal Trough Goal Trough: 15-20 mcg/mL Pharmacy Plan for Drug Dosing Pharmacy Plan for Drug Dosing: Vancomycin trough level of 21.1, drawn 22.5hrs post-dose, was above the target range of 15-20. (Note- trough draw was noted as being @1738, but was drawn at 2138). Will suspend current dosing, and will draw a random vanco level in twelve hours to determine further orders. Pharmacy Service will continue to monitor and adjust dosing as required. Follow-Up Labs Follow-Up Labs: Trough: Vancomycin (random) Date/Time Labs Ordered Labs to be done on [date and time ordered]: 07/03/25 @0930 (random)
[2025-07-03] MEDS: Ampicillin/Sulbactam 3 GM in 0.9% Normal Saline (100mL MB+) 100 ML IV ×3 (06:07→21:29)
[2025-07-03] MEDS: 0.9 % NaCl (Sterile) Posiflush 10 mL IV ×2 (06:09→21:31)
--- NOTE | 2025-07-03 08:26 | PCM.PN.SRG ---
Subjective Subjective Gely was sitting up in the bedside chair on my exam this morning. She reports tugging sensation around the R groin dressing but otherwise only expected discomfort. The prevena vac dressing is in place and maintaining good seal. She reports the L groin incision has fully healed where there was a bit of superficial dehiscence before. She understands the need to discuss any further possible RLE with [facility]; awaiting scheduling. Her RUE edema is somewhat improved, still puffy into her hand. Her Hgb has been stable on current lovenox dosing. Objective Data Objective Data Vital Signs: Vital Signs Temp Pulse Resp BP Pulse Ox O2 Del Method 98.7 F 61 16 131/46 H 99 Room Air 07/02/25 09:15 07/02/25 09:23 07/02/25 09:15 07/02/25 09:15 07/01/25 16:26 07/02/25 17:00 Oxygen Delivery Method Room Air Weight: 181 lb 11.2 oz Body Mass Index (BMI) 29.2 Intake & Output: Intake and Output for Last 24 Hours 07/01/25 07/02/25 07/03/25 23:59 23:59 23:59 Intake Total 1290 / 1290 1766 / 1766 100 / 100 Balance 1290 / 1290 1766 / 1766 100 / 100 Lab / Micro Data 07/01/25 08:08 07/01/25 08:08 Labs: Laboratory Results - last 24 hr 06/29/25 05:24: Crossmatch See Detail 07/02/25 16:54: POC Glucose 134 H 07/02/25 17:38: Vancomycin Trough 21.1 H 07/03/25 06:16: POC Glucose 119 H Micro: Microbiology 06/16/25 20:50 Stool Stool Occult Blood (ERICA) - Final Occult Blood Positive 06/10/25 11:36 Blood Culture (Wb) - Anticubital Right Blood Culture - Final No growth in 5 days. 06/10/25 11:29 Blood Culture (Wb) - Anticubital Left Blood Culture - Final No growth in 5 days. 06/10/25 13:30 Wound Drainage - Aerobic & Anaerobic Swabs Gram Stain - Final 06/10/25 13:30 Wound Drainage - Aerobic & Anaerobic Swabs Wound Culture - Final Stenotrophomonas maltophilia Acinetobacter baumannii Meth. resistant Staph. aureus 06/10/25 13:30 Wound Drainage - Aerobic & Anaerobic Swabs Anaerobic Culture - Final No anaerobic bacteria isolated. 06/10/25 11:25 Urine Catheter - Catheter Urine Culture - Final Enterobacter asburiae 06/10/25 13:15 Stool C. difficile GDH Antigen & Toxins - Final Toxigenic C. difficile 06/10/25 13:15 Stool Clostridioides difficile (PCR) - Final 06/10/25 10:48 Mucosa - Nasopharyngeal Respiratory Panel (PCR) - Final 06/10/25 11:32 Nasal Secretion SARS-CoV-2 Antigen (Rapid) - Final 06/03/25 Unknown Stool Stool Occult Blood (ERICA) - Final Occult Blood Positive Physical Exam Const alert, oriented x3 and no apparent distress HEENT normocephalic, head/scalp atraumatic and external nose normal Eyes General Eye: normal appearance of both eyes Neck General: normal visual inspection Resp normal respiratory effort Effort and Inspection: able to speak in complete sentences Extremity Extremity Narrative: RUE with 1+ edema R groin with Prevena vac dressing in place, maintaining good seal. All soft to palpation; there is moderate resolving ecchymosis tracking dependently to the medial groin. L groin incision site healed. Neuro Speech: speech normal Psych mental status grossly normal Appearance: grossly normal Assessment & Plan Assessment/Plan (1) Deep vein thrombosis of right upper extremity: (2) PAOD (peripheral arterial occlusive disease): (3) Anemia: (4) Chronic osteomyelitis of left foot: PLAN: Plan Her planned RLE open revascularization had to be aborted due to inability to effectively clamp her vessels secondary to her severe calcific atherosclerosis; Dr. Clement had discussed this with her postoperatively Sunday and she states understanding. Plan is for continued local care for now and for consultation with [facility] to see if they may have alternate approach for revascularization or with same plan but performed at [facility] where greater resources are present to address complications should they occur. R groin Prevena vacuum dressing can be removed on 07/07/2025. After Prevena is removed, recommend dry gauze dressing changed daily. She has continued to tolerate the Lovenox well to this point, Hgb has been overall stable and no signs of active bleeding. Continue Lovenox for her RUE DVT; plan for 3 months of therapy. Charges/Coding Procedures Integumentary [id number]: [id number] Global Visit
[2025-07-03 09:14] VITALS: BP 127/47; PULSE 62; RESP 17; TEMP 37; O2SAT 99
[2025-07-03] MEDS: DAKIN'S SOL HALF STRENGTH (=0.25%) TOPICAL (09:19)
[2025-07-03] MEDS: Lactobacillis Acidophilus 1 CAP PO (09:19)
[2025-07-03 09:20] VITALS: PULSE 62
[2025-07-03] MEDS: Metoprolol(XL)Succ 25 MG Tablet 6.25 MG PO (09:20)
[2025-07-03] MEDS: Neuropathy Pain Cream Compound 60 CLICK TUBE TOPICAL (09:22)
[2025-07-03 11:07] LABS: Vancomycin, Random Level 16.8 ug/mL (0.0-15.0)
--- NOTE | 2025-07-03 11:16 | PCM.RX.CS ---
Consult Antibiotic Management Pharmacy has been consulted to manage selected antibiotic: Vancomycin Type of Intervention Type of Consult: Follow-up Suspected Infection Suspected Infection: Osteomyelitis Prior Doses of Antibiotics Prior Doses of Antibiotics Received/Current Regimen: Vancomycin 1000 mg Q24H given last on 07/01/25 @ 2303 Labs Labs: Sodium 140 mmol/L (133-145) 07/01/25 08:08 Potassium 3.7 mmol/L (3.3-5.1) 07/01/25 08:08 Chloride 106 mmol/L (98-108) 07/01/25 08:08 Carbon Dioxide 22.1 mmol/L (21.0-32.0) 07/01/25 08:08 Anion Gap 13 (5-15) 07/01/25 08:08 BUN 52 mg/dL (4-19) H 07/01/25 08:08 Creatinine 1.22 mg/dL (0.70-1.20) H 07/01/25 08:08 Est GFR (MDRD) Non-Af 47 (>60) L 07/01/25 08:08 BUN/Creatinine Ratio 42.7 RATIO (10-20) H 07/01/25 08:08 Glucose 210 mg/dL (70-99) H 07/01/25 08:08 Vancomycin Trough 21.1 ug/mL (5.0-15.0) H 07/02/25 17:38 Random Vancomycin 16.8 ug/mL (0.0-15.0) H 07/03/25 10:00 Microbiology Microbiology: Microbiology 06/16/25 20:50 Stool Stool Occult Blood (ERICA) - Final Occult Blood Positive 06/10/25 11:36 Blood Culture (Wb) - Anticubital Right Blood Culture - Final No growth in 5 days. 06/10/25 11:29 Blood Culture (Wb) - Anticubital Left Blood Culture - Final No growth in 5 days. 06/10/25 13:30 Wound Drainage - Aerobic & Anaerobic Swabs Gram Stain - Final 06/10/25 13:30 Wound Drainage - Aerobic & Anaerobic Swabs Wound Culture - Final Stenotrophomonas maltophilia Acinetobacter baumannii Meth. resistant Staph. aureus 06/10/25 13:30 Wound Drainage - Aerobic & Anaerobic Swabs Anaerobic Culture - Final No anaerobic bacteria isolated. 06/10/25 11:25 Urine Catheter - Catheter Urine Culture - Final Enterobacter asburiae 06/10/25 13:15 Stool C. difficile GDH Antigen & Toxins - Final Toxigenic C. difficile 06/10/25 13:15 Stool Clostridioides difficile (PCR) - Final 06/10/25 10:48 Mucosa - Nasopharyngeal Respiratory Panel (PCR) - Final 06/10/25 11:32 Nasal Secretion SARS-CoV-2 Antigen (Rapid) - Final 06/03/25 Unknown Stool Stool Occult Blood (ERICA) - Final Occult Blood Positive Dosing Weight Weight used for dosin.42 kg Estimated Creatinine Clearance Estimated Creatinine Clearance: ~ 44 Goal Trough Goal Trough: 15-20 mcg/mL Pharmacy Plan for Drug Dosing Pharmacy Plan for Drug Dosing: Vancomycin random level = 16.8, resume dosing with 750 mg Q24H Pharmacy Service will continue to monitor and adjust dosing as required. Follow-Up Labs Follow-Up Labs: Trough: Vancomycin Date/Time Labs Ordered Labs to be done on [date and time ordered]: 07/05/25 @ 1100
[2025-07-03] MEDS: Vancomycin HCl 750 MG in 0.9% Normal Saline (250mL Bag) 250 ML 250 MG IV (13:35)
[2025-07-03] MEDS: Vancomycin Trough/Random Due 1 LAB MC ×2 (13:35→13:36)
[2025-07-03 22:00] VITALS: PULSE 63; RESP 16; O2SAT 98
--- NOTE | 2025-07-03 22:14 | NURSING ---
Bilateral foot dressings changed per order.
[2025-07-04] MEDS: Ampicillin/Sulbactam 3 GM in 0.9% Normal Saline (100mL MB+) 100 ML IV ×3 (05:56→20:18)
[2025-07-04] MEDS: 0.9 % NaCl (Sterile) Posiflush 10 mL IV ×3 (05:58→11:05)
[2025-07-04] MEDS: 0.9% Normal Saline (250mL Bag) 250 ML 15 ML IV (06:01)
[2025-07-04 07:30] VITALS: PULSE 62; RESP 16; O2SAT 98
[2025-07-04 08:05] VITALS: BP 130/43; PULSE 56; RESP 16; TEMP 36.7; O2SAT 99
[2025-07-04 08:07] VITALS: PULSE 56
[2025-07-04] MEDS: Lactobacillis Acidophilus 1 CAP PO (08:07)
[2025-07-04] MEDS: Metoprolol(XL)Succ 25 MG Tablet 6.25 MG PO (08:07)
[2025-07-04] MEDS: Vancomycin HCl 750 MG in 0.9% Normal Saline (250mL Bag) 250 ML 250 MG IV (11:05)
[2025-07-04] MEDS: DAKIN'S SOL HALF STRENGTH (=0.25%) TOPICAL (14:35)
[2025-07-04] MEDS: 0.9% Saline Lock 10 ML Syringe IV (20:21)
[2025-07-05] MEDS: Ampicillin/Sulbactam 3 GM in 0.9% Normal Saline (100mL MB+) 100 ML IV ×3 (05:24→22:16)
[2025-07-05] MEDS: 0.9 % NaCl (Sterile) Posiflush 10 mL IV ×4 (05:24→23:02)
[2025-07-05 08:26] VITALS: PULSE 59
[2025-07-05] MEDS: Metoprolol(XL)Succ 25 MG Tablet 6.25 MG PO (08:26)
[2025-07-05] MEDS: Lactobacillis Acidophilus 1 CAP PO (08:26)
[2025-07-05 08:32] VITALS: BP 118/48; PULSE 58; RESP 15; TEMP 36.9; O2SAT 99
[2025-07-05] MEDS: Neuropathy Pain Cream Compound 60 CLICK TUBE TOPICAL (12:45)
[2025-07-05] MEDS: DAKIN'S SOL HALF STRENGTH (=0.25%) TOPICAL (12:45)
[2025-07-05 13:16] LABS: Vancomycin, Trough Level 15.2 ug/mL (5.0-15.0)
[2025-07-05] MEDS: Vancomycin HCl 750 MG in 0.9% Normal Saline (250mL Bag) 250 ML 250 MG IV (14:14)
[2025-07-05] MEDS: Vancomycin Trough/Random Due 1 LAB MC (14:15)
--- NOTE | 2025-07-05 15:12 | PCM.RX.CS ---
Consult Antibiotic Management Pharmacy has been consulted to manage selected antibiotic: Vancomycin Type of Intervention Type of Consult: Follow-up Labs Labs: Sodium 140 mmol/L (133-145) 07/01/25 08:08 Potassium 3.7 mmol/L (3.3-5.1) 07/01/25 08:08 Chloride 106 mmol/L (98-108) 07/01/25 08:08 Carbon Dioxide 22.1 mmol/L (21.0-32.0) 07/01/25 08:08 Anion Gap 13 (5-15) 07/01/25 08:08 BUN 52 mg/dL (4-19) H 07/01/25 08:08 Creatinine 1.22 mg/dL (0.70-1.20) H 07/01/25 08:08 Est GFR (MDRD) Non-Af 47 (>60) L 07/01/25 08:08 BUN/Creatinine Ratio 42.7 RATIO (10-20) H 07/01/25 08:08 Glucose 210 mg/dL (70-99) H 07/01/25 08:08 Vancomycin Trough 15.2 ug/mL (5.0-15.0) H 07/05/25 11:13 Random Vancomycin 16.8 ug/mL (0.0-15.0) H 07/03/25 10:00 Microbiology Microbiology: Microbiology 06/16/25 20:50 Stool Stool Occult Blood (ERICA) - Final Occult Blood Positive 06/10/25 11:36 Blood Culture (Wb) - Anticubital Right Blood Culture - Final No growth in 5 days. 06/10/25 11:29 Blood Culture (Wb) - Anticubital Left Blood Culture - Final No growth in 5 days. 06/10/25 13:30 Wound Drainage - Aerobic & Anaerobic Swabs Gram Stain - Final 06/10/25 13:30 Wound Drainage - Aerobic & Anaerobic Swabs Wound Culture - Final Stenotrophomonas maltophilia Acinetobacter baumannii Meth. resistant Staph. aureus 06/10/25 13:30 Wound Drainage - Aerobic & Anaerobic Swabs Anaerobic Culture - Final No anaerobic bacteria isolated. 06/10/25 11:25 Urine Catheter - Catheter Urine Culture - Final Enterobacter asburiae 06/10/25 13:15 Stool C. difficile GDH Antigen & Toxins - Final Toxigenic C. difficile 06/10/25 13:15 Stool Clostridioides difficile (PCR) - Final 06/10/25 10:48 Mucosa - Nasopharyngeal Respiratory Panel (PCR) - Final 06/10/25 11:32 Nasal Secretion SARS-CoV-2 Antigen (Rapid) - Final 06/03/25 Unknown Stool Stool Occult Blood (ERICA) - Final Occult Blood Positive Goal Trough Goal Trough: 15-20 mcg/mL Pharmacy Plan for Drug Dosing Pharmacy Plan for Drug Dosing: VANCOMYCIN LEVEL RECEIVED Current Vancomycin Dose: 750mg IV Q24h Number of Doses Received: 2 (of current regimen) Vancomycin Level: 15.2 Hours Since Last Dose: 24h Renal Function: SCr 1.22 (07/01) Renal Function Trend: stable Lab/Micro: no new results Vancomycin Plan/Comments: Patient had a trough drawn which resulted in a value of 15.2 (goal 15-20). patient is within therapeutic limits. Will continue current dose of vancomycin and recheck a trough in 2 days to assess dosing at that time. Pending Level: 07/07/25 @1100 Pharmacy Service will continue to monitor and adjust dosing as required.
[2025-07-06] MEDS: Ampicillin/Sulbactam 3 GM in 0.9% Normal Saline (100mL MB+) 100 ML IV ×3 (05:37→22:35)
[2025-07-06] MEDS: 0.9 % NaCl (Sterile) Posiflush 10 mL IV ×3 (05:38→22:39)
[2025-07-06] MEDS: Lactobacillis Acidophilus 1 CAP PO (08:10)
[2025-07-06 08:11] VITALS: PULSE 50
[2025-07-06 08:18] VITALS: BP 126/46; PULSE 50; RESP 16; TEMP 36.8; O2SAT 99
[2025-07-06] MEDS: Vancomycin HCl 750 MG in 0.9% Normal Saline (250mL Bag) 250 ML 250 MG IV (11:25)
[2025-07-06] MEDS: DAKIN'S SOL HALF STRENGTH (=0.25%) TOPICAL (16:12)
[2025-07-07] MEDS: Ampicillin/Sulbactam 3 GM in 0.9% Normal Saline (100mL MB+) 100 ML IV ×3 (06:46→23:04)
[2025-07-07] MEDS: 0.9% Normal Saline (250mL Bag) 250 ML 15 ML IV (06:50)
[2025-07-07 10:31] VITALS: PULSE 80
[2025-07-07] MEDS: Metoprolol(XL)Succ 25 MG Tablet 6.25 MG PO (10:31)
[2025-07-07] MEDS: Lactobacillis Acidophilus 1 CAP PO (10:31)
[2025-07-07] MEDS: Neuropathy Pain Cream Compound 60 CLICK TUBE TOPICAL (10:35)
[2025-07-07 12:23] LABS: Vancomycin, Trough Level 14.9 ug/mL (5.0-15.0)
--- NOTE | 2025-07-07 12:43 | PCM.RX.CS ---
Consult Antibiotic Management Pharmacy has been consulted to manage selected antibiotic: Vancomycin Type of Intervention Type of Consult: Follow-up Suspected Infection Suspected Infection: Osteomyelitis Prior Doses of Antibiotics Prior Doses of Antibiotics Received/Current Regimen: Vancomycin 750 mg Q24H last dose given 07/06 @ 1125 Labs Labs: Sodium 140 mmol/L (133-145) 07/01/25 08:08 Potassium 3.7 mmol/L (3.3-5.1) 07/01/25 08:08 Chloride 106 mmol/L (98-108) 07/01/25 08:08 Carbon Dioxide 22.1 mmol/L (21.0-32.0) 07/01/25 08:08 Anion Gap 13 (5-15) 07/01/25 08:08 BUN 52 mg/dL (4-19) H 07/01/25 08:08 Creatinine 1.22 mg/dL (0.70-1.20) H 07/01/25 08:08 Est GFR (MDRD) Non-Af 47 (>60) L 07/01/25 08:08 BUN/Creatinine Ratio 42.7 RATIO (10-20) H 07/01/25 08:08 Glucose 210 mg/dL (70-99) H 07/01/25 08:08 Vancomycin Trough 14.9 ug/mL (5.0-15.0) 07/07/25 11:00 Random Vancomycin 16.8 ug/mL (0.0-15.0) H 07/03/25 10:00 Microbiology Microbiology: Microbiology 06/16/25 20:50 Stool Stool Occult Blood (ERICA) - Final Occult Blood Positive 06/10/25 11:36 Blood Culture (Wb) - Anticubital Right Blood Culture - Final No growth in 5 days. 06/10/25 11:29 Blood Culture (Wb) - Anticubital Left Blood Culture - Final No growth in 5 days. 06/10/25 13:30 Wound Drainage - Aerobic & Anaerobic Swabs Gram Stain - Final 06/10/25 13:30 Wound Drainage - Aerobic & Anaerobic Swabs Wound Culture - Final Stenotrophomonas maltophilia Acinetobacter baumannii Meth. resistant Staph. aureus 06/10/25 13:30 Wound Drainage - Aerobic & Anaerobic Swabs Anaerobic Culture - Final No anaerobic bacteria isolated. 06/10/25 11:25 Urine Catheter - Catheter Urine Culture - Final Enterobacter asburiae 06/10/25 13:15 Stool C. difficile GDH Antigen & Toxins - Final Toxigenic C. difficile 06/10/25 13:15 Stool Clostridioides difficile (PCR) - Final 06/10/25 10:48 Mucosa - Nasopharyngeal Respiratory Panel (PCR) - Final 06/10/25 11:32 Nasal Secretion SARS-CoV-2 Antigen (Rapid) - Final 06/03/25 Unknown Stool Stool Occult Blood (ERICA) - Final Occult Blood Positive Dosing Weight Weight used for dosin kg Estimated Creatinine Clearance Estimated Creatinine Clearance: ~ 44 Goal Trough Goal Trough: 15-20 mcg/mL Pharmacy Plan for Drug Dosing Pharmacy Plan for Drug Dosing: Vancomycin trough = 14.9, continue current dosing, last trough on 1000 mg Q24H was 21.1. Trough in 4 days. Pharmacy Service will continue to monitor and adjust dosing as required. Follow-Up Labs Follow-Up Labs: Trough: Vancomycin Date/Time Labs Ordered Labs to be done on [date and time ordered]: 07/11/25 @ 1100
[2025-07-07] MEDS: Vancomycin HCl 750 MG in 0.9% Normal Saline (250mL Bag) 250 ML 250 MG IV (13:06)
[2025-07-07] MEDS: 0.9 % NaCl (Sterile) Posiflush 10 mL IV (13:06)
[2025-07-07] MEDS: Vancomycin Trough/Random Due 1 LAB MC (13:13)
[2025-07-07] MEDS: DAKIN'S SOL HALF STRENGTH (=0.25%) TOPICAL (14:29)
--- NOTE | 2025-07-07 15:14 | WOUNDNOTE ---
wound photo: right lateral heel
--- NOTE | 2025-07-07 15:15 | WOUNDNOTE ---
wound photo: left medial ankle
--- NOTE | 2025-07-07 15:16 | WOUNDNOTE ---
wound photo: left posterior lower leg
--- NOTE | 2025-07-07 15:16 | WOUNDNOTE ---
wound photo: left lateral foot
--- NOTE | 2025-07-07 15:17 | WOUNDNOTE ---
wound photo: left heel
[2025-07-07 16:00] VITALS: BP 124/50; PULSE 60; RESP 17; TEMP 36.7; O2SAT 97
[2025-07-07] MEDS: 0.9% Saline Lock 10 ML Syringe IV (22:50)
[2025-07-08] MEDS: 0.9% Saline Lock 10 ML Syringe IV ×3 (05:06→23:05)
[2025-07-08] MEDS: Ampicillin/Sulbactam 3 GM in 0.9% Normal Saline (100mL MB+) 100 ML IV ×3 (05:09→23:05)
[2025-07-08 05:48] LABS: Hematocrit 21.8 % (37-47); Hemoglobin 6.6 g/dL (12.0-15.0); Immature Granulocytes Count 0.010 X10^3/uL (0.0-0.0); Mean Corp Hgb Conc 30.3 g/dL (32-36); Mean Corpuscular Volume 94.4 fL (81-99); Mean Platelet Vol. 12.0 fl (6.2-12.0); NRBC Flagged by Analyzer 0 % (0-5); Platelet Count 142 K/mm3 (150-450); RBC Distribution Width CV 16.8 % (11.6-14.6); RBC Distribution Width SD 58.1 fl (35.1-43.9); Red Blood Count 2.31 M/mm3 (4.2-5.4); White Blood Count 5.4 K/mm3 (4.4-11.0)
[2025-07-08 06:10] LABS: Anion Gap 11 (5-15); BUN 44 mg/dL (4-19); BUN/Creat Ratio 39.6 RATIO (10-20); Calcium,Total 8.5 mg/dL (7.6-11.0); Carbon Dioxide 21.2 mmol/L (21.0-32.0); Chloride 110 mmol/L (98-108); Estimated Creatinine Clearance 49.29 ml/min (50-250); Glucose 112 mg/dL (70-99); Potassium 4.4 mmol/L (3.3-5.1)
--- NOTE | 2025-07-08 06:25 | NURSING ---
Addendum entered by Kwaku Ch 07/08/25 06:49: Dr. Al called unit via phone call, new orders: Hold lovenox and plavix x5 days, check stool for occult blood, type and cross for 2 units of packed red blood cells, transfuse packed red blood cells per protocol, draw H&H 24 hours after infusion, orders verified by readback and acknowledged correct. Original Note: Patient Hem 6.6 this AM, Dr. Al updated via backline message.
[2025-07-08 07:33] VITALS: BP 122/44; PULSE 58; RESP 16; TEMP 37.4; O2SAT 98
[2025-07-08 07:37] VITALS: PULSE 58
[2025-07-08] MEDS: Lactobacillis Acidophilus 1 CAP PO (07:37)
[2025-07-08] MEDS: Metoprolol(XL)Succ 25 MG Tablet 6.25 MG PO (07:37)
--- NOTE | 2025-07-08 07:56 | NURSING ---
Addendum entered by Ingrid Rodriguez 07/08/25 08:18: 0750- Updated resident. She denies any s/s of low hgb. Dr. Al on unit and aware as well. Original Note: Spoke with Lory in infusion center, unable to put resident on schedule for today. Will transfuse tomorrow morning at 0830.
[2025-07-08] MEDS: DAKIN'S SOL HALF STRENGTH (=0.25%) TOPICAL (10:47)
--- NOTE | 2025-07-08 11:18 | WOUNDNOTE ---
wound photo: right groin
[2025-07-08] MEDS: Vancomycin HCl 750 MG in 0.9% Normal Saline (250mL Bag) 250 ML 250 MG IV (11:20)
[2025-07-08] MEDS: Neuropathy Pain Cream Compound 60 CLICK TUBE TOPICAL (11:27)
--- NOTE | 2025-07-08 13:18 | NURSING ---
pt off unit via WC with brother to eye appt
[2025-07-08] MEDS: 0.9 % NaCl (Sterile) Posiflush 10 mL IV (15:02)
--- NOTE | 2025-07-08 15:05 | NURSING ---
pt returned from eye appt, no new orders.
--- NOTE | 2025-07-08 18:10 | NURSING ---
dr solomon placed order to notify dr ybarra of + occult stool, anemia HGB 6.6. new order to start clear liquids tomorrow
[2025-07-09] VITALS (9 sets, daily range): BP systolic 127–158; BP diastolic 48–53; PULSE 54–67; RESP 16–18; TEMP 36.1–37.1; O2SAT 97–99; BMI 29.3
[2025-07-09] MEDS: 0.9% Saline Lock 10 ML Syringe IV ×3 (05:06→14:00)
[2025-07-09] MEDS: Ampicillin/Sulbactam 3 GM in 0.9% Normal Saline (100mL MB+) 100 ML IV ×3 (05:22→22:20)
[2025-07-09] MEDS: Lactobacillis Acidophilus 1 CAP PO (07:37)
--- NOTE | 2025-07-09 07:37 | NURSING ---
Scheduled to receive blood today, IV Vancomycin due at 11:30. Per pharmacist Sepideh ok to give late when returns to unit. If has to be hung after 3pm call pharmacy to re-schedule.
[2025-07-09] MEDS: Metoprolol(XL)Succ 25 MG Tablet 6.25 MG PO (07:42)
[2025-07-09] MEDS: Neuropathy Pain Cream Compound 60 CLICK TUBE TOPICAL (07:44)
--- NOTE | 2025-07-09 08:19 | NURSING ---
pt off unit to infusion center for [address] ybarra, going to have colonoscopy on Sunday instead of Sunday d/t pt getting blood today & cannot tolerate frequent BR trips during blood transfusion. Also has ortho appt on Sunday that she cannot miss for rt shoulder issues/pain.
[2025-07-09] MEDS: 0.9% Normal Saline (250mL Bag) 250 ML 15 ML IV (13:08)
[2025-07-09] MEDS: DAKIN'S SOL HALF STRENGTH (=0.25%) TOPICAL (13:09)
--- NOTE | 2025-07-09 13:54 | PHA.CONS_ITS ---
Documented by User: Antonino Grimes 07/09/25 14:56 TCU RX Drug Regimen Review Subjective/Objective Subjective/Objective Subjective: Monthly TCU medication list review. Objective: Allergies Sulfa (Sulfonamide Antibiotics) Allergy (Verified 06/12/25 09:37) Unknown doesn't remember/ allergy noted as a child Current Medications Generic Name Dose Route Start Last Admin Trade Name Freq PRN Reason Stop Dose Admin Acetaminophen 1,000 mg 06/30/25 11:44 07/08/25 14:59 Acetaminophen 500 Mg Tablet PO 1,000 mg Q6H PRN PRN Administration Pain Score 1-5 Ascorbic Acid 1,000 mg 06/30/25 12:00 07/09/25 13:08 Ascorbic Acid 500 Mg Tablet PO 1,000 mg LUNCH HADLEY Administration Atorvastatin Calcium 10 mg 06/30/25 22:00 07/08/25 23:10 Atorvastatin Calcium 10 Mg Tablet PO 10 mg QHS HADLEY Administration Bisacodyl 20 mg 07/12/25 06:00 Bisacodyl 5 Mg Tablet PO 07/12/25 06:01 X1 ONE Calamine/Phenol 1 applic 06/30/25 22:00 07/09/25 07:46 Menthol/Lanolin/Calamine/Znox 113 Gm Tube TOPICAL 1 applic BID HADLEY Administration Protocol Calcium Carbonate 500 mg 07/01/25 08:00 07/09/25 07:37 Calcium Carbonate 500 Mg Tablet PO 500 mg DAILYCM HADLEY Administration Clopidogrel Bisulfate 75 mg 07/01/25 10:00 07/09/25 07:37 Clopidogrel Bisulfate 75 Mg Tablet PO 75 mg DAILY HADLEY Administration Compound Med 2 click 06/30/25 11:41 07/09/25 07:44 Neuropathy Pain Cream Compound 60 Click Tube TOPICAL 2 click BID PRN Administration Pain Score 1-10 Protocol Enoxaparin Sodium 80 mg 06/30/25 22:00 07/07/25 22:47 Enoxaparin 80 Mg/0.8 Ml Syringe SC 80 mg Q12 HADLEY Administration Ferrous Sulfate 325 mg 06/30/25 12:00 07/09/25 13:08 Ferrous Sulfate 325 Mg Tablet PO 325 mg DAILY@1200 HADLEY Administration Glimepiride 1 mg 07/01/25 08:00 07/09/25 07:36 Glimepiride 1 Mg Tablet PO 1 mg BREAKFAST HADLEY Administration Vancomycin IV-PHARMACY TO DOSE 500 mls @ 250 mls/hr 08/12/25 11:56 1 each/ Sodium Chloride IV X1 PRN Rx to Dose Protocol Ampicillin Sodium/Sulbactam 100 mls @ 150 mls/hr 06/30/25 14:00 07/09/25 13:09 Sodium 3 gm/ Sodium Chloride IV 07/28/25 23:00 150 mls/hr Q8 HADLEY Administration Sodium Chloride 250 mls @ 15 mls/hr 06/30/25 12:00 07/09/25 13:08 IV 15 mls/hr .[id number] PRN Administration Saline Flush Sodium Chloride 250 mls @ 15 mls/hr 06/30/25 12:00 IV .[id number] PRN Additional IVPB Infusion Vancomycin HCl 750 mg/ Sodium 265 mls @ 250 mls/hr 07/03/25 11:30 07/08/25 12:40 Chloride IV 07/28/25 23:00 Infused Q24H HADLEY Infusion Levofloxacin 250 mg 07/01/25 06:00 07/09/25 06:13 Levofloxacin 250 Mg Tablet PO 250 mg DAILY@0600 HADLEY Administration Magnesium Citrate 300 ml 06/30/25 11:44 Magnesium Citrate 300 Ml PO DAILY PRN Constipation Metoprolol Succinate 6.25 mg 07/01/25 10:00 07/09/25 07:42 Metoprolol(Xl)Succ 25 Mg Tablet PO 6.25 mg DAILY HADLEY Administration Protocol Multivitamins 1 tablet 07/01/25 08:00 07/09/25 07:37 Multivitamins,Therapeutic Tablet PO 1 tablet DAILYCM HADLEY Administration Nystatin 1 applic 06/30/25 22:00 07/09/25 07:45 Nystatin Powder 15gm Bottle TOPICAL 1 applic BID HADLEY Administration Protocol [id number] Ethyl Esters 1 gm 07/01/25 10:00 07/09/25 07:37 Sandpoint-3 Acid Ethyl Esters 1 Gm Capsule PO 1 gm DAILY HADLEY Administration Oxycodone HCl 5 mg 06/30/25 11:44 07/09/25 13:43 Oxycodone 5 Mg Tablet PO 5 mg Q4H PRN PRN Administration Pain Score 6-10 or Pre PT/OT Pantoprazole Sodium 40 mg 06/30/25 22:00 07/09/25 07:38 Pantoprazole Sodium 40 Mg Tablet PO 40 mg BID HADLEY Administration Pregabalin 100 mg 06/30/25 14:00 07/09/25 13:11 Pregabalin 50 Mg Capsule PO 100 mg TID HADLEY Administration Senna/Docusate Sodium 2 tablet 06/30/25 11:44 Senna/Docusate Sodium 1 Tablet PO BID PRN Constipation Sodium Chloride 10 - 40 ml 06/30/25 12:00 07/08/25 15:02 0.9 % Nacl (Sterile) Posiflush 10 Ml IV 30 ml UD PRN Administration Port access or dressing change Sodium Chloride 10 - 40 ml 06/30/25 12:00 07/09/25 08:30 0.9% Saline Lock 10 Ml Syringe IV 10 ml UD PRN Administration Open End PICC Flush Sodium Chloride/Electrolytes 4,000 ml 07/12/25 06:00 Electrolyte Solution/Peg's 4000 Ml PO 07/12/25 06:01 X1 ONE Sodium Hypochlorite 0 ml 07/01/25 10:00 07/09/25 13:09 Dakin's Heather Half Strength (=0.25%) TOPICAL 1 applic DAILY HADLEY Administration Protocol Sucralfate 1 gm 06/30/25 16:00 07/09/25 06:12 Sucralfate 1 Gm Tablet PO 1 gm 0700,1600 HADLEY Administration Vancomycin Protocol 1 lab 07/11/25 10:00 Vancomycin Trough/Random Due MC 07/11/25 12:00 DAILY [facility] Problem List Non-pressure chronic ulcer of left ankle with muscle involvement without evidence of necrosis (Acute) Deep vein thrombosis of right upper extremity (Acute) C. difficile diarrhea (Acute) Charcot joint of foot (Acute) Non-pressure chronic ulcer of left ankle with necrosis of muscle (Acute) Anemia (Acute) Weakness (Acute) Essential (primary) hypertension (Acute) Type 2 diabetes mellitus with hyperglycemia (Acute) PAOD (peripheral arterial occlusive disease) (Acute) Debility (Acute) Other specified peripheral vascular diseases (Acute) Non-pressure chronic ulcer of other part of right foot with fat layer exposed (Chronic) 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 foot with fat layer exposed (Chronic) Hyperlipidemia (Chronic) Diabetes mellitus with polyneuropathy (Chronic) Chronic osteomyelitis of left foot (Chronic) Vital Signs Temp Pulse Resp BP Pulse Ox O2 Del Method 97.2 F L 67 16 143/51 H 99 Room Air 07/09/25 13:00 07/09/25 13:00 07/09/25 13:00 07/09/25 13:00 07/09/25 13:00 07/09/25 13:00 Oxygen Delivery Method Room Air Weight: 82.418 kg Body Mass Index (BMI) 29.3 Sodium 142 mmol/L (133-145) 07/08/25 05:39 Potassium 4.4 mmol/L (3.3-5.1) 07/08/25 05:39 Chloride 110 mmol/L (98-108) H 07/08/25 05:39 Carbon Dioxide 21.2 mmol/L (21.0-32.0) 07/08/25 05:39 Anion Gap 11 (5-15) 07/08/25 05:39 BUN 44 mg/dL (4-19) H 07/08/25 05:39 Creatinine 1.10 mg/dL (0.70-1.20) 07/08/25 05:39 Est GFR (MDRD) Non-Af 53 (>60) L 07/08/25 05:39 BUN/Creatinine Ratio 39.6 RATIO (10-20) H 07/08/25 05:39 Glucose 112 mg/dL (70-99) H 07/08/25 05:39 Vancomycin Trough 14.9 ug/mL (5.0-15.0) 07/07/25 11:00 Random Vancomycin 16.8 ug/mL (0.0-15.0) H 07/03/25 10:00 Assessment/Plan: 1. Pain: acetaminophen 1000mg PO Q6 PRN pain 1-5 (receives an average of 2 doses per day) and oxycodone 5mg PO Q4H PRN pain 6-10 (3 doses given in the last week). Please continue to monitor for increased pain, PRN usage, constipation, respiratory depression, LFTs and falls (BEERs). 2. Bowel: senna/docusate 2T PO BID PRN and magnesium citrate 300mL PO daily PRN constipation. No PRN doses given. Please continue to monitor for constipation and PRN usage. Last documented bowel movement was 07/08/25. Of note, patient has bowel prep of PEG solution 4000 mL scheduled for 07/12/25 3. Hypertension: metoprolol succinate 6.25mg PO daily. Please continue to monitor BP (range 122/44-158/52), HR (range 54-67), fatigue. 4. POAD s/p LLE revascularization: clopidogrel 75mg PO daily. Please continue to monitor for S/S of bleeding, hemoglobin (last 9.3g/dL), bruising. 5. Iron deficiency anemia: ascorbic acid 1000mg PO daily and ferrous sulfate 325mg PO daily. Please continue to monitor hemoglobin (last 9.3g/dL), dark stools, constipation and iron studies (last 03/13/25). 6. Hyperlipidemia: atorvastatin 10mg PO QHS and omega-3 1gm PO daily. Please continue to monitor lipid panel (last 03/13/25), LFT (last 06/11/25) and muscle pain. 7. Diabetic polyneuropathy: pregabalin 100mg PO TID and Neuropathy pain cream 2 clicks topical BID. Please continue to monitor for confusion, renal function, and falls/fractures (Ian). 8. Diabetes Mellitus II: glimepiride 2mg PO BID. Please continue to monitor hemoglobin A1c (last 7.6% 05/18/25), glucose (range 91-141 mg/dL), S/S of hypoglycemia. 9. Indigestion: calcium carbonate 500mg PO daily. Please continue to monitor calcium (last 8.5 mg/dL). 10. GI prophylaxis: lactobacillus 1C PO daily. Please continue to monitor for diarrhea. 11. Nutrition: multivitamin 1T PO daily. Please continue to monitor. 12. Skin irritation/Tinea Corporis: Nystatin topical bid and Calomseptine topical bid. Please continue to monitor. 13. GI ulcer: Pantoprazole 40 mg PO BID, sucralfate 1 g PO BID. Please monitor for worsening of GI bleed and signs of blood in the stool (dark tarry stool). 14. Right upper extremity DVT: Enoxaparin 80 mg SQ Q12H. Please monitor for bleeding such as GI bleeding, blood in the urine, bleeding from the gums and bruising. H/H/P from 07/08: 6.6/21.8/142 15. Osteomyelitis left foot - Unasyn 3 g IV Q8H, Levofloxacin 250 mg PO daily, Vancomycin 750 mg IV Q24H. Please monitor for diarrhea, altered taste hypokalemia, nephrotoxicity, neutropenia and abdominal pain. Last K level 07/08/25: 4.4, SCr: 1.1, CrCl: 49.3. Levofloxacin Black Box Warnings: Can cause tendon rupture, neurotoxicity, and peripheral neuropathy. Use should be avoided in patients with myasthenia gravis. Assessment/Plan for indications treated with psychotropic medications: Resident is not prescribed scheduled or prn psychotropic medications at the time of this drug regimen review. Medical chart and medication regimen reviewed. The following medication irregularities or issues were identified: No irregularities identified at this time. Date Date of Note: 07/09/25 Documented by User: Dr. Phogn Al MD 07/09/25 15:28 TCU RX Drug Regimen Review Provider Comments Provider responsibility Provider Comments to Recommendations by Pharmacy Agree
[2025-07-09] MEDS: Vancomycin HCl 750 MG in 0.9% Normal Saline (250mL Bag) 250 ML 250 MG IV (13:57)
--- NOTE | 2025-07-09 14:00 | NURSING ---
pt returned from transfusion center.
--- NOTE | 2025-07-09 14:45 | WOUNDNOTE ---
Sent message to LILLIAM Kraft about pt c/o more discomfort in the left thigh. therapy also feels patient is not moving as well. will await response.
--- NOTE | 2025-07-09 14:52 | NURSING ---
Addendum entered by Carole Salas 07/09/25 15:47: wound nurse returned call, new order for doppler LLE Original Note: therapy reported that pt having increased pain LT thigh & more difficulty with lifting leg. notified [facility] wound nurse and she is notifying LILLIAM Rojas. awaiting return call.
--- NOTE | 2025-07-09 15:33 | WOUNDNOTE ---
Return message from Dr Clement. duplex ordered. vascular lab had called this nurse and will hopefully be able to complete early am if preauthorization is obtained. GORGE Lam aware of order. will await response from Abena about a CTA.
--- NOTE | 2025-07-09 15:51 | NURSING ---
civil engineering technician here to do doppler LLE
--- NOTE | 2025-07-09 16:04 | NURSING ---
crown and bridge technician reported, pt negative for DVT LLE
--- NOTE | 2025-07-09 17:07 | PCM.PN.SRG ---
Subjective Subjective I saw Gely in TCU this afternoon. Since I last saw her, she had a drop in her Hgb from 8.4 on 07/01 to 6.6 on 07/08. Her Lovenox was placed on hold on 07/08. She received 2 units PRBC at the infusion center today. She reports that the last ~2-3 days she has had increase pain in her thigh, mostly in the anteromedial thigh. PT also noticed today that she was having increased difficulty lifting this leg; Gely reports whenever she tries to move her leg it makes the pain worse. She has had some swelling in the LLE to an extent since surgery but this also seems slightly worse particularly in the thigh. Recall that she is on IV Vanco and Unasyn for her foot osteomyelitis. She is still on Plavix. She has a colonoscopy scheduled for Sunday; she has had GI bleeding in the recent past. Her RUE edema is improving, much better than it was last week. Objective Data Objective Data Vital Signs: Vital Signs Temp Pulse Resp BP Pulse Ox O2 Del Method 97.2 F L 67 17 143/51 H 99 Room Air 07/09/25 13:00 07/09/25 14:07 07/09/25 14:07 07/09/25 13:00 07/09/25 14:07 07/09/25 14:07 Oxygen Delivery Method Room Air Weight: 181 lb 11.2 oz Body Mass Index (BMI) 29.3 Intake & Output: Intake and Output for Last 24 Hours 07/07/25 07/08/25 07/09/25 23:59 23:59 23:59 Intake Total 1337 / 1337 1285 / 1285 2105 / 2105 Balance 1337 / 1337 1285 / 1285 2105 / 2105 Lab / Micro Data 07/08/25 05:39 07/08/25 05:39 Labs: Laboratory Results - last 24 hr 06/02/25 09:00: Crossmatch See Detail 07/08/25 07:10: Blood Type A POSITIVE, Antibody Screen NEGATIVE, Crossmatch See Detail 07/08/25 21:42: POC Glucose 141 H 07/09/25 06:04: POC Glucose 97 07/09/25 16:04: POC Glucose 129 H Micro: Microbiology 07/09/25 05:23 Nasal Secretion SARS-CoV-2 Antigen (Rapid) - Final 07/08/25 09:33 Stool Stool Occult Blood (ERICA) - Final Occult Blood Positive 06/16/25 20:50 Stool Stool Occult Blood (ERICA) - Final Occult Blood Positive 06/10/25 11:36 Blood Culture (Wb) - Anticubital Right Blood Culture - Final No growth in 5 days. 06/10/25 11:29 Blood Culture (Wb) - Anticubital Left Blood Culture - Final No growth in 5 days. 06/10/25 13:30 Wound Drainage - Aerobic & Anaerobic Swabs Gram Stain - Final 06/10/25 13:30 Wound Drainage - Aerobic & Anaerobic Swabs Wound Culture - Final Stenotrophomonas maltophilia Acinetobacter baumannii Meth. resistant Staph. aureus 06/10/25 13:30 Wound Drainage - Aerobic & Anaerobic Swabs Anaerobic Culture - Final No anaerobic bacteria isolated. 06/10/25 11:25 Urine Catheter - Catheter Urine Culture - Final Enterobacter asburiae 06/10/25 13:15 Stool C. difficile GDH Antigen & Toxins - Final Toxigenic C. difficile 06/10/25 13:15 Stool Clostridioides difficile (PCR) - Final 06/10/25 10:48 Mucosa - Nasopharyngeal Respiratory Panel (PCR) - Final 06/10/25 11:32 Nasal Secretion SARS-CoV-2 Antigen (Rapid) - Final 06/03/25 Unknown Stool Stool Occult Blood (ERICA) - Final Occult Blood Positive Physical Exam Const alert, oriented x3 and no apparent distress HEENT normocephalic, head/scalp atraumatic and external nose normal Eyes General Eye: normal appearance of both eyes Neck General: normal visual inspection Resp normal respiratory effort Effort and Inspection: able to speak in complete sentences Extremity Extremity Narrative: RUE with reducing edema R groin with Prineo tape intact to the incision, incision is well-healing, no dehiscence. Prior ecchymosis is resolved. L groin incision site healed. There is a palpable lump just inferolateral to the incision, may correspond to lymph node seen on exam. The rest of the thigh is somewhat tight/edematous to palpation without any focal areas of increased induration/fluctuance/firmness. There is no erythema or increased warmth. L DP and PT doppler signals strong monophasic Neuro Speech: speech normal Psych mental status grossly normal Appearance: grossly normal Assessment & Plan Assessment/Plan (1) Deep vein thrombosis of right upper extremity: (2) PAOD (peripheral arterial occlusive disease): (3) Anemia: (4) Chronic osteomyelitis of left foot: PLAN: Plan With recent drop in Hgb, increased pain and increased swelling in the L thigh will order CTA Abd/Pelvis with runoff to further evaluate for complication such as hematoma though it would be unusual as she is 7 weeks post-op from her LLE surgery. Pedal doppler signals are stable which is reassuring. Her RUE edema is much improved compared to last week. Lovenox is currently on hold due to acute anemia; agree with continued hold. She is currently scheduled for repeat colonoscopy on Sunday as well. Charges/Coding Procedures Integumentary [id number]: [id number] Global Visit
--- NOTE | 2025-07-09 17:09 | NURSING ---
LILLIAM Gilmore here and assessed pts pulses in LT Leg. ordered CT, insurance preauth needed
--- NOTE | 2025-07-09 18:46 | PN.PCM_ITS ---
History of Present Illness Date of Service: 07/09/25 Chief Complaint: Left third ulcer History of Wound: She returns to clinic today for ulcers to the left third toe. The second toe is no longer draining. She asked that I check this site out again today. She denies pain, drainage, fever, chills, nausea, vomiting. She has a long history of recurrent ulcers, partial toe amputations, comprehensive wound healing management, osteomyelitis treatment with recurrence, and even hyperbaric oxygen therapy sessions. Her ulcer is previously been cultured and was positive for MRSA and she continues on doxycycline. She is also under the care of an infectious disease specialist. Amputation of the partial third digit is scheduled for May when she is able to get a ride to surgery. She is already signed consents. Progress of Wound: Stable full-thickness wounds to the bilateral lower extremity. Subjective Subjective Ms. Fuller is a 75-year-old diabetic female seen at bedside today for evaluation of full-thickness wounds to bilateral lower extremity. Patient recently had dressing changes by wound care nurse. When asked about her intervention to the right lower extremity she states that it was a difficult case and will most likely have to have intervention at [facility] versus [facility]. Right now the patient has been having pain to the left thigh region with no DVT. She is meeting with orthopedics regarding her right shoulder in the next upcoming days and has a scheduled colonoscopy. Overall she has been uneventful to the bilateral lower extremity with wound care dressing changes provided by the wound care nurse at [facility]. She has been very grateful for her care and time in the ICU. She is currently on IV antibiotics per infectious disease recommendation. She denies trauma. Denies constitutional symptoms. No other pedal complaints at this time. Objective Data Objective Data Vital Signs: Vital Signs Temp Pulse Resp BP Pulse Ox O2 Del Method 97.2 F L 67 17 143/51 H 99 Room Air 07/09/25 13:00 07/09/25 14:07 07/09/25 14:07 07/09/25 13:00 07/09/25 14:07 07/09/25 14:07 Oxygen Delivery Method Room Air Weight: 82.418 kg Body Mass Index (BMI) 29.3 Intake & Output: Intake and Output for Last 24 Hours 07/07/25 07/08/25 07/09/25 23:59 23:59 23:59 Intake Total 1337 / 1337 1285 / 1285 210 / 210 Balance 1337 / 1337 1285 / 1285 2104 / 2104 Lab / Micro Data 07/08/25 05:39 07/08/25 05:39 Labs: Laboratory Results - last 24 hr 06/02/25 09:00: Crossmatch See Detail 07/08/25 07:10: Blood Type A POSITIVE, Antibody Screen NEGATIVE, Crossmatch See Detail 07/08/25 21:42: POC Glucose 141 H 07/09/25 06:04: POC Glucose 97 07/09/25 16:04: POC Glucose 129 H Micro: Microbiology 07/09/25 05:23 Nasal Secretion SARS-CoV-2 Antigen (Rapid) - Final 07/08/25 09:33 Stool Stool Occult Blood (ERICA) - Final Occult Blood Positive 06/16/25 20:50 Stool Stool Occult Blood (ERICA) - Final Occult Blood Positive 06/10/25 11:36 Blood Culture (Wb) - Anticubital Right Blood Culture - Final No growth in 5 days. 06/10/25 11:29 Blood Culture (Wb) - Anticubital Left Blood Culture - Final No growth in 5 days. 06/10/25 13:30 Wound Drainage - Aerobic & Anaerobic Swabs Gram Stain - Final 06/10/25 13:30 Wound Drainage - Aerobic & Anaerobic Swabs Wound Culture - Final Stenotrophomonas maltophilia Acinetobacter baumannii Meth. resistant Staph. aureus 06/10/25 13:30 Wound Drainage - Aerobic & Anaerobic Swabs Anaerobic Culture - Final No anaerobic bacteria isolated. 06/10/25 11:25 Urine Catheter - Catheter Urine Culture - Final Enterobacter asburiae 06/10/25 13:15 Stool C. difficile GDH Antigen & Toxins - Final Toxigenic C. difficile 06/10/25 13:15 Stool Clostridioides difficile (PCR) - Final 06/10/25 10:48 Mucosa - Nasopharyngeal Respiratory Panel (PCR) - Final 06/10/25 11:32 Nasal Secretion SARS-CoV-2 Antigen (Rapid) - Final 06/03/25 Unknown Stool Stool Occult Blood (ERICA) - Final Occult Blood Positive Physical Exam Narrative Neurovascular status unchanged. Nonpitting edema appreciated to the distal and proximal aspect of the bilateral lower extremity. No pain on palpation to the bilateral lower extremity over the dressing. Review of the imaging provided by wound care nurse: Healthy granular base to the left heel Fibrogranular base to the distal lateral left foot Fibrogranular base to the left proximal medial ankle Fibrogranular base to the left anterior ankle Right lateral heel shows evidence of fibrogranular base with no proximal streaking All wounds show no concern for infection at this time. And there is no evidence of proximal streaking or concern for infection to the bilateral lower extremity. No pain with calf compression bilateral. Const oriented x3 and no apparent distress Assessment/Plan Assessment/Plan (1) 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 foot with fat layer exposed: CODE(S): L97.522 - 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 foot with fat layer exposed PLAN: Patient was examined and evaluated. All findings were discussed with the patient. All questions were answered to the patient satisfaction. Discussed with the patient at bedside today the need to return back to the operating room for a ultrasonic washout with Integra bilayer graft application to the bilateral extremity which the patient was understanding of. Currently the patient has multiple outpatient follow-ups and will need to try to schedule around them. Tentative plan for surgical intervention from podiatry will be on 07/24/2025. I will begin booking this and getting authorization through the patient's insurance for: Surgical skin graft site prep with application of skin graft substitute (Integra bilayer) for 07/24/2025. Please clear patient medically with recommendations. Vascular surgery: On board and following. Lovenox was put on hold on 07/08. Patient received 2 units of PRBC. Continued increased pain for the past 2 to 3 days to the left thigh region. PT/OT: On board, notices concerns for difficulty lifting left leg. Infectious disease: IV Vanco and Unasyn GI: Plan for colonoscopy scheduled for Sunday Orthopedics: Outpatient follow-up for right shoulder. Will continue wound care nurse dressing changes to bilateral lower extremity full-thickness wounds with Dakin soaked gauze, dry sterile dressing and Marino compression wraps to the bilateral lower extremity. Will plan to meet next Sunday with wound care nurse for bedside debridement. Please reach out to Dr. Irene of any question or concerns. Thank you for letting me be involved in the patient care. (2) Non-pressure chronic ulcer of other part of right foot with fat layer exposed: CODE(S): L97.512 - Non-pressure chronic ulcer of other part of right foot with fat layer exposed (3) Non-pressure chronic ulcer of left ankle with muscle involvement without evidence of necrosis: CODE(S): L97.325 - Non-pressure chronic ulcer of left ankle with muscle involvement without evidence of necrosis (4) Other specified peripheral vascular diseases: CODE(S): I73.89 - Other specified peripheral vascular diseases
[2025-07-09] MEDS: 0.9 % NaCl (Sterile) Posiflush 10 mL IV (22:21)
[2025-07-10] MEDS: 0.9 % NaCl (Sterile) Posiflush 10 mL IV ×3 (01:43→12:23)
[2025-07-10] MEDS: Ampicillin/Sulbactam 3 GM in 0.9% Normal Saline (100mL MB+) 100 ML IV ×3 (06:04→21:40)
--- NOTE | 2025-07-10 08:55 | NURSING ---
pt left unit at 840 with sister for eliezer horton
[2025-07-10 12:15] VITALS: BP 132/45; PULSE 51; RESP 17; TEMP 36.8; O2SAT 98
[2025-07-10] MEDS: Lactobacillis Acidophilus 1 CAP PO (12:19)
[2025-07-10] MEDS: DAKIN'S SOL HALF STRENGTH (=0.25%) TOPICAL (12:20)
[2025-07-10 12:21] VITALS: PULSE 51
[2025-07-10] MEDS: Vancomycin HCl 750 MG in 0.9% Normal Saline (250mL Bag) 250 ML 250 MG IV (12:21)
[2025-07-10 16:00] VITALS: PULSE 59
[2025-07-10 16:14] LABS: Hematocrit 28.0 % (37-47); Hemoglobin 9.0 g/dL (12.0-15.0)
--- NOTE | 2025-07-10 16:15 | NURSING ---
called authorization department at 1235 and spoke to Elyssa- She was unable to help and said I needed to call back and start preauthorization. [id number] that called and spoke to Ya- provided all information. Medical records requested. Faxed Provider notes to [phone]. Waiting to hear backl.
--- NOTE | 2025-07-10 20:00 | NURSING ---
received fax from insurance requesting more medical records. sent records via fax
[2025-07-11] MEDS: 0.9% Saline Lock 10 ML Syringe IV ×2 (05:31→22:25)
[2025-07-11] MEDS: Ampicillin/Sulbactam 3 GM in 0.9% Normal Saline (100mL MB+) 100 ML IV ×3 (05:39→22:41)
[2025-07-11 09:29] VITALS: BP 116/42; PULSE 60; RESP 17; TEMP 36.8; O2SAT 95
[2025-07-11] MEDS: Lactobacillis Acidophilus 1 CAP PO (09:34)
[2025-07-11] MEDS: DAKIN'S SOL HALF STRENGTH (=0.25%) TOPICAL (09:35)
[2025-07-11 09:37] VITALS: PULSE 60
[2025-07-11] MEDS: Metoprolol(XL)Succ 25 MG Tablet 6.25 MG PO (09:37)
[2025-07-11 11:49] LABS: Vancomycin, Trough Level 14.0 ug/mL (5.0-15.0)
[2025-07-11] MEDS: Vancomycin Trough/Random Due 1 LAB MC (12:10)
--- NOTE | 2025-07-11 12:10 | PCM.RX.CS ---
Consult Antibiotic Management Pharmacy has been consulted to manage selected antibiotic: Vancomycin Type of Intervention Type of Consult: Follow-up Prior Doses of Antibiotics Prior Doses of Antibiotics Received/Current Regimen: current dose is vanc 750mg IV q24h Labs Labs: Sodium 142 mmol/L (133-145) 07/08/25 05:39 Potassium 4.4 mmol/L (3.3-5.1) 07/08/25 05:39 Chloride 110 mmol/L (98-108) H 07/08/25 05:39 Carbon Dioxide 21.2 mmol/L (21.0-32.0) 07/08/25 05:39 Anion Gap 11 (5-15) 07/08/25 05:39 BUN 44 mg/dL (4-19) H 07/08/25 05:39 Creatinine 1.10 mg/dL (0.70-1.20) 07/08/25 05:39 Est GFR (MDRD) Non-Af 53 (>60) L 07/08/25 05:39 BUN/Creatinine Ratio 39.6 RATIO (10-20) H 07/08/25 05:39 Glucose 112 mg/dL (70-99) H 07/08/25 05:39 Vancomycin Trough 14.0 ug/mL (5.0-15.0) 07/11/25 11:05 Random Vancomycin 16.8 ug/mL (0.0-15.0) H 07/03/25 10:00 Microbiology Microbiology: Microbiology 07/11/25 06:45 Nasal Secretion SARS-CoV-2 Antigen (Rapid) - Final 07/09/25 05:23 Nasal Secretion SARS-CoV-2 Antigen (Rapid) - Final 07/08/25 09:33 Stool Stool Occult Blood (ERICA) - Final Occult Blood Positive 06/16/25 20:50 Stool Stool Occult Blood (ERICA) - Final Occult Blood Positive 06/10/25 11:36 Blood Culture (Wb) - Anticubital Right Blood Culture - Final No growth in 5 days. 06/10/25 11:29 Blood Culture (Wb) - Anticubital Left Blood Culture - Final No growth in 5 days. 06/10/25 13:30 Wound Drainage - Aerobic & Anaerobic Swabs Gram Stain - Final 06/10/25 13:30 Wound Drainage - Aerobic & Anaerobic Swabs Wound Culture - Final Stenotrophomonas maltophilia Acinetobacter baumannii Meth. resistant Staph. aureus 06/10/25 13:30 Wound Drainage - Aerobic & Anaerobic Swabs Anaerobic Culture - Final No anaerobic bacteria isolated. 06/10/25 11:25 Urine Catheter - Catheter Urine Culture - Final Enterobacter asburiae 06/10/25 13:15 Stool C. difficile GDH Antigen & Toxins - Final Toxigenic C. difficile 06/10/25 13:15 Stool Clostridioides difficile (PCR) - Final 06/10/25 10:48 Mucosa - Nasopharyngeal Respiratory Panel (PCR) - Final 06/10/25 11:32 Nasal Secretion SARS-CoV-2 Antigen (Rapid) - Final 06/03/25 Unknown Stool Stool Occult Blood (ERICA) - Final Occult Blood Positive Dosing Weight Weight used for dosin.4 kg Estimated Creatinine Clearance Estimated Creatinine Clearance: 49 ml/min Goal Trough Goal Trough: 15-20 mcg/mL Pharmacy Plan for Drug Dosing Pharmacy Plan for Drug Dosing: The vanc trough drawn at 11:05 today (approx 23 hours after the previous dose) was 14.0 mcg/ml. This is the 2nd consecutive trough that the result has been below goal range and it has been trending downward before that as well. Will increase the dose back to 1000mg IV q24h. Check a trough before the 3rd dose. Pharmacy Service will continue to monitor and adjust dosing as required. Follow-Up Labs Follow-Up Labs: Trough: Vancomycin Date/Time Labs Ordered Labs to be done on [date and time ordered]: 07/13/25 12:30
[2025-07-11] MEDS: Vancomycin HCl 1,000 MG in 0.9% Normal Saline (250mL Bag) 250 ML 250 MG IV (14:14)
[2025-07-11] MEDS: 0.9% Normal Saline (250mL Bag) 250 ML 15 ML IV (22:26)
[2025-07-12] MEDS: 0.9% Saline Lock 10 ML Syringe IV ×2 (05:01→21:28)
[2025-07-12] MEDS: Ampicillin/Sulbactam 3 GM in 0.9% Normal Saline (100mL MB+) 100 ML IV ×3 (05:17→21:34)
[2025-07-12] MEDS: Electrolyte Solution/Peg's 4000 ML PO (06:06)
[2025-07-12 10:27] VITALS: BP 144/58; PULSE 56; RESP 17; TEMP 36.4; O2SAT 98
[2025-07-12] MEDS: Lactobacillis Acidophilus 1 CAP PO (10:31)
[2025-07-12 10:32] VITALS: PULSE 56
[2025-07-12] MEDS: Metoprolol(XL)Succ 25 MG Tablet 6.25 MG PO (10:32)
[2025-07-12] MEDS: DAKIN'S SOL HALF STRENGTH (=0.25%) TOPICAL (10:32)
[2025-07-12] MEDS: Vancomycin HCl 1,000 MG in 0.9% Normal Saline (250mL Bag) 250 ML 250 MG IV (12:11)
[2025-07-12] MEDS: 0.9 % NaCl (Sterile) Posiflush 10 mL IV (12:11)
[2025-07-13] MEDS: Ampicillin/Sulbactam 3 GM in 0.9% Normal Saline (100mL MB+) 100 ML IV ×3 (06:53→22:19)
[2025-07-13] MEDS: 0.9% Saline Lock 10 ML Syringe IV ×2 (06:53→21:58)
[2025-07-13 06:57] VITALS: BP 134/49; PULSE 53; RESP 16; TEMP 36.2; O2SAT 97; BMI 29.3
[2025-07-13 10:11] VITALS: BP 142/48; PULSE 52; RESP 16; TEMP 36.4; O2SAT 99
[2025-07-13 10:18] VITALS: BP 142/48; PULSE 52; RESP 16; TEMP 36.4; O2SAT 99; BMI 29.3
[2025-07-13] MEDS: DAKIN'S SOL HALF STRENGTH (=0.25%) TOPICAL (13:16)
[2025-07-13 13:24] LABS: Vancomycin, Trough Level 14.8 ug/mL (5.0-15.0)
[2025-07-13] MEDS: Vancomycin Trough/Random Due 1 LAB MC (13:25)
--- NOTE | 2025-07-13 13:33 | PCM.RX.CS ---
Consult Antibiotic Management Pharmacy has been consulted to manage selected antibiotic: Vancomycin Type of Intervention Type of Consult: Follow-up Suspected Infection Suspected Infection: Osteomyelitis Prior Doses of Antibiotics Prior Doses of Antibiotics Received/Current Regimen: Vancomycin 1000 mg IV Q24H last dose given 07/12/25 @ 1414 Labs Labs: Sodium 142 mmol/L (133-145) 07/08/25 05:39 Potassium 4.4 mmol/L (3.3-5.1) 07/08/25 05:39 Chloride 110 mmol/L (98-108) H 07/08/25 05:39 Carbon Dioxide 21.2 mmol/L (21.0-32.0) 07/08/25 05:39 Anion Gap 11 (5-15) 07/08/25 05:39 BUN 44 mg/dL (4-19) H 07/08/25 05:39 Creatinine 1.10 mg/dL (0.70-1.20) 07/08/25 05:39 Est GFR (MDRD) Non-Af 53 (>60) L 07/08/25 05:39 BUN/Creatinine Ratio 39.6 RATIO (10-20) H 07/08/25 05:39 Glucose 112 mg/dL (70-99) H 07/08/25 05:39 Vancomycin Trough 14.8 ug/mL (5.0-15.0) 07/13/25 12:38 Random Vancomycin 16.8 ug/mL (0.0-15.0) H 07/03/25 10:00 Microbiology Microbiology: Microbiology 07/13/25 06:49 Nasal Secretion SARS-CoV-2 Antigen (Rapid) - Final 07/11/25 06:45 Nasal Secretion SARS-CoV-2 Antigen (Rapid) - Final 07/09/25 05:23 Nasal Secretion SARS-CoV-2 Antigen (Rapid) - Final 07/08/25 09:33 Stool Stool Occult Blood (ERICA) - Final Occult Blood Positive 06/16/25 20:50 Stool Stool Occult Blood (ERICA) - Final Occult Blood Positive 06/10/25 11:36 Blood Culture (Wb) - Anticubital Right Blood Culture - Final No growth in 5 days. 06/10/25 11:29 Blood Culture (Wb) - Anticubital Left Blood Culture - Final No growth in 5 days. 06/10/25 13:30 Wound Drainage - Aerobic & Anaerobic Swabs Gram Stain - Final 06/10/25 13:30 Wound Drainage - Aerobic & Anaerobic Swabs Wound Culture - Final Stenotrophomonas maltophilia Acinetobacter baumannii Meth. resistant Staph. aureus 06/10/25 13:30 Wound Drainage - Aerobic & Anaerobic Swabs Anaerobic Culture - Final No anaerobic bacteria isolated. 06/10/25 11:25 Urine Catheter - Catheter Urine Culture - Final Enterobacter asburiae 06/10/25 13:15 Stool C. difficile GDH Antigen & Toxins - Final Toxigenic C. difficile 06/10/25 13:15 Stool Clostridioides difficile (PCR) - Final 06/10/25 10:48 Mucosa - Nasopharyngeal Respiratory Panel (PCR) - Final 06/10/25 11:32 Nasal Secretion SARS-CoV-2 Antigen (Rapid) - Final 06/03/25 Unknown Stool Stool Occult Blood (ERICA) - Final Occult Blood Positive Dosing Weight Weight used for dosin.4 kg Estimated Creatinine Clearance Estimated Creatinine Clearance: ~ 49 Goal Trough Goal Trough: 15-20 mcg/mL Pharmacy Plan for Drug Dosing Pharmacy Plan for Drug Dosing: Vancomycin trough = 14.8, continue current dose Pharmacy Service will continue to monitor and adjust dosing as required. Follow-Up Labs Follow-Up Labs: Trough: Vancomycin Date/Time Labs Ordered Labs to be done on [date and time ordered]: 07/15/25 @ 6160
--- NOTE | 2025-07-13 14:15 | WOUNDNOTE ---
wound photo: right lateral heel
--- NOTE | 2025-07-13 14:16 | WOUNDNOTE ---
wound photo: left medial ankle
--- NOTE | 2025-07-13 14:17 | WOUNDNOTE ---
wound photo: left medial lower leg
--- NOTE | 2025-07-13 14:17 | WOUNDNOTE ---
wound photo: left heel
--- NOTE | 2025-07-13 14:18 | WOUNDNOTE ---
wound photo: left lateral foot
[2025-07-13] MEDS: Vancomycin HCl 1,000 MG in 0.9% Normal Saline (250mL Bag) 250 ML 250 MG IV (14:21)
--- NOTE | 2025-07-13 15:58 | NURSING ---
pt off unit to endo for colonoscopy via bed
--- NOTE | 2025-07-13 17:41 | NURSING ---
pt back to unit at this time
[2025-07-13] MEDS: Lactobacillis Acidophilus 1 CAP PO (17:48)
[2025-07-13 17:50] VITALS: BP 163/72; PULSE 78
[2025-07-13] MEDS: Metoprolol(XL)Succ 25 MG Tablet 6.25 MG PO (17:50)
--- NOTE | 2025-07-13 18:06 | NURSING ---
pt blood sugar checked on return to floor from FABIANO patel 69. pt given her tray. will recheck
[2025-07-13 18:22] VITALS: PULSE 60; RESP 17; O2SAT 96
[2025-07-13 21:53] VITALS: BP 140/79; PULSE 56; O2SAT 98
[2025-07-14] MEDS: 0.9% Saline Lock 10 ML Syringe IV ×4 (05:12→23:21)
[2025-07-14] MEDS: Ampicillin/Sulbactam 3 GM in 0.9% Normal Saline (100mL MB+) 100 ML IV ×3 (05:16→22:18)
[2025-07-14 09:53] VITALS: BP 129/58; PULSE 61; RESP 18; TEMP 36.6; O2SAT 98
[2025-07-14] MEDS: DAKIN'S SOL HALF STRENGTH (=0.25%) TOPICAL (10:01)
[2025-07-14] MEDS: Neuropathy Pain Cream Compound 60 CLICK TUBE TOPICAL (10:02)
[2025-07-14 10:05] VITALS: PULSE 61
[2025-07-14] MEDS: Metoprolol(XL)Succ 25 MG Tablet 6.25 MG PO (10:05)
[2025-07-14] MEDS: Lactobacillis Acidophilus 1 CAP PO (10:20)
[2025-07-14 11:00] VITALS: BMI 29.5
--- NOTE | 2025-07-14 11:05 | CASEMGMT ---
Social Work SW spoke with pt to follow up on DC plan as IV ATB are done on 07/28. Pt states her brother and sister were going to hire aides to help pt at home and to follow up with her brother. - SW phoned brother. Brother confirmed HEAT TREATING BLUER to assist pt - 4 days with 4-5 hours/day to start and then can adapt from there after she gets home. SW will update the team and notify the brother with any additional concerns. SW will coordinate skilled [facility] PT/OT/SN, as [facility]. Brother confirmed. Brother expressed concern with falls at home and would like therapy to practice floor transfers. SW to update therapy and reinforced a medical alert button. Brother stated pt has a medical alert but pt would take it off at night. SW to follow up with pt on education to wearing it 11/06. Explained pt's IV ATB through 07/28, with pending EDC 07/29 with insurance. Brother inquired about f/u with vascular surgery on [facility]. SW directed to f/u Dr. Clement's office and if that would impact DC pending a surgery date. Brother expressed understanding. SW will continue to follow. Katarina Bunch REJECT OPENER AND FILLER MANAGER STARS
[2025-07-14] MEDS: Vancomycin HCl 1,000 MG in 0.9% Normal Saline (250mL Bag) 250 ML 250 MG IV (12:56)
[2025-07-14 14:46] VITALS: PULSE 52; RESP 17; O2SAT 97
--- NOTE | 2025-07-14 14:57 | NURSING ---
Received fax that more clinical information needed or [id number] for approval. Faxed clinical information to [employer].
[2025-07-15 06:05] LABS: Hematocrit 27.7 % (37-47); Hemoglobin 8.7 g/dL (12.0-15.0); Immature Granulocytes Count 0.010 X10^3/uL (0.0-0.0); Mean Corp Hgb Conc 31.4 g/dL (32-36); Mean Corpuscular Volume 90.8 fL (81-99); Mean Platelet Vol. 11.9 fl (6.2-12.0); NRBC Flagged by Analyzer 0 % (0-5); Platelet Count 140 K/mm3 (150-450); RBC Distribution Width CV 14.6 % (11.6-14.6); RBC Distribution Width SD 48.5 fl (35.1-43.9); Red Blood Count 3.05 M/mm3 (4.2-5.4); White Blood Count 4.9 K/mm3 (4.4-11.0)
[2025-07-15] MEDS: 0.9% Saline Lock 10 ML Syringe IV ×4 (06:27→23:02)
[2025-07-15 06:35] LABS: Anion Gap 10 (5-15); BUN 32 mg/dL (4-19); BUN/Creat Ratio 31.7 RATIO (10-20); Calcium,Total 8.5 mg/dL (7.6-11.0); Carbon Dioxide 22.8 mmol/L (21.0-32.0); Chloride 109 mmol/L (98-108); Estimated Creatinine Clearance 55.03 ml/min (50-250); Glucose 109 mg/dL (70-99); Potassium 3.7 mmol/L (3.3-5.1)
[2025-07-15] MEDS: 0.9% Normal Saline (250mL Bag) 250 ML 15 ML IV (06:37)
[2025-07-15] MEDS: Ampicillin/Sulbactam 3 GM in 0.9% Normal Saline (100mL MB+) 100 ML IV ×3 (06:37→21:51)
[2025-07-15 08:44] VITALS: BP 147/52; PULSE 52; RESP 16; TEMP 36.6
[2025-07-15 08:48] VITALS: PULSE 52
[2025-07-15] MEDS: Lactobacillis Acidophilus 1 CAP PO (08:48)
[2025-07-15] MEDS: Metoprolol(XL)Succ 25 MG Tablet 6.25 MG PO (08:48)
[2025-07-15] MEDS: DAKIN'S SOL HALF STRENGTH (=0.25%) TOPICAL (08:51)
--- NOTE | 2025-07-15 12:35 | NURSING ---
Addendum entered by Ingrid Rodriguez 07/16/25 14:54: Call from office today, asking if official denial received. Let them know if came through fax today, they requested copy. Will drop of copy in office. Addendum entered by Ingrid Rodriguez 07/15/25 16:20: Call back from office,they took case # and evicore phone # to do [id number]. Original Note: Left VM with vascular office to update Abena Fiore that insurance asked multiple times for more clinical info to approve CTA, or offered [id number]. Unsure if can get approved, unsure if she'd want to do [id number].
[2025-07-15] MEDS: Vancomycin Trough/Random Due 1 LAB MC (12:38)
[2025-07-15 14:29] LABS: Vancomycin, Trough Level 16.4 ug/mL (5.0-15.0)
--- NOTE | 2025-07-15 14:49 | PCM.RX.CS ---
Consult Antibiotic Management Pharmacy has been consulted to manage selected antibiotic: Vancomycin Type of Intervention Type of Consult: Follow-up Prior Doses of Antibiotics Prior Doses of Antibiotics Received/Current Regimen: current dose is vanc 1000mg IV q24h Labs Labs: Sodium 142 mmol/L (133-145) 07/15/25 05:45 Potassium 3.7 mmol/L (3.3-5.1) 07/15/25 05:45 Chloride 109 mmol/L (98-108) H 07/15/25 05:45 Carbon Dioxide 22.8 mmol/L (21.0-32.0) 07/15/25 05:45 Anion Gap 10 (5-15) 07/15/25 05:45 BUN 32 mg/dL (4-19) H 07/15/25 05:45 Creatinine 0.99 mg/dL (0.70-1.20) 07/15/25 05:45 Est GFR (MDRD) Non-Af 60 (>60) 07/15/25 05:45 BUN/Creatinine Ratio 31.7 RATIO (10-20) H 07/15/25 05:45 Glucose 109 mg/dL (70-99) H 07/15/25 05:45 Vancomycin Trough 16.4 ug/mL (5.0-15.0) H 07/15/25 12:25 Random Vancomycin 16.8 ug/mL (0.0-15.0) H 07/03/25 10:00 Microbiology Microbiology: Microbiology 07/13/25 06:49 Nasal Secretion SARS-CoV-2 Antigen (Rapid) - Final 07/11/25 06:45 Nasal Secretion SARS-CoV-2 Antigen (Rapid) - Final 07/09/25 05:23 Nasal Secretion SARS-CoV-2 Antigen (Rapid) - Final 07/08/25 09:33 Stool Stool Occult Blood (ERICA) - Final Occult Blood Positive 06/16/25 20:50 Stool Stool Occult Blood (ERICA) - Final Occult Blood Positive 06/10/25 11:36 Blood Culture (Wb) - Anticubital Right Blood Culture - Final No growth in 5 days. 06/10/25 11:29 Blood Culture (Wb) - Anticubital Left Blood Culture - Final No growth in 5 days. 06/10/25 13:30 Wound Drainage - Aerobic & Anaerobic Swabs Gram Stain - Final 06/10/25 13:30 Wound Drainage - Aerobic & Anaerobic Swabs Wound Culture - Final Stenotrophomonas maltophilia Acinetobacter baumannii Meth. resistant Staph. aureus 06/10/25 13:30 Wound Drainage - Aerobic & Anaerobic Swabs Anaerobic Culture - Final No anaerobic bacteria isolated. 06/10/25 11:25 Urine Catheter - Catheter Urine Culture - Final Enterobacter asburiae 06/10/25 13:15 Stool C. difficile GDH Antigen & Toxins - Final Toxigenic C. difficile 06/10/25 13:15 Stool Clostridioides difficile (PCR) - Final 06/10/25 10:48 Mucosa - Nasopharyngeal Respiratory Panel (PCR) - Final 06/10/25 11:32 Nasal Secretion SARS-CoV-2 Antigen (Rapid) - Final 06/03/25 Unknown Stool Stool Occult Blood (ERICA) - Final Occult Blood Positive Dosing Weight Weight used for dosin kg Estimated Creatinine Clearance Estimated Creatinine Clearance: 55 ml/min Goal Trough Goal Trough: 15-20 mcg/mL Pharmacy Plan for Drug Dosing Pharmacy Plan for Drug Dosing: The vanc trough drawn at 12:25 today (approx 23.5 hours after the previous dose) was 16.4 mcg/ml. This is in range so will leave patient on same dose. Will check trough again in 3 days. Will not go longer than that for now since this same dose resulted in a slightly high trough several days ago. Pharmacy Service will continue to monitor and adjust dosing as required. Follow-Up Labs Follow-Up Labs: Trough: Vancomycin Date/Time Labs Ordered Labs to be done on [date and time ordered]: 07/18/25 12:30
--- NOTE | 2025-07-15 15:36 | WOUNDNOTE ---
Pt states she will most likely be discharged after 07/28/25 when her antibiotics are completed. wound care will most likely be different at that time since Dr Irene is hoping to apply Integra grafts on 07/24/25. discussed with patient that we will hold off on doing family teaching as this will not be the same as current wound care. pt states understanding.
[2025-07-15 21:46] VITALS: PULSE 56; RESP 18; O2SAT 98
[2025-07-16] MEDS: 0.9% Normal Saline (250mL Bag) 250 ML 15 ML IV (06:11)
[2025-07-16] MEDS: Ampicillin/Sulbactam 3 GM in 0.9% Normal Saline (100mL MB+) 100 ML IV ×3 (06:11→22:50)
[2025-07-16] MEDS: 0.9% Saline Lock 10 ML Syringe IV ×3 (06:12→22:33)
--- NOTE | 2025-07-16 06:57 | NURSING ---
Written communication left for Dr. Al regarding PICC red lumen. Unable to flush red port or get blood return.
[2025-07-16 08:25] VITALS: PULSE 63
[2025-07-16] MEDS: Metoprolol(XL)Succ 25 MG Tablet 6.25 MG PO (08:25)
[2025-07-16] MEDS: Lactobacillis Acidophilus 1 CAP PO (08:27)
[2025-07-16] MEDS: DAKIN'S SOL HALF STRENGTH (=0.25%) TOPICAL (08:28)
[2025-07-16] MEDS: Vancomycin HCl 1,000 MG in 0.9% Normal Saline (250mL Bag) 250 ML 250 MG IV (13:28)
[2025-07-16 16:00] VITALS: BP 155/60; PULSE 59; RESP 16; TEMP 36.6; O2SAT 98
--- NOTE | 2025-07-16 17:32 | PCM.PN.SRG ---
Subjective Subjective I saw Gely today resting in the bedside chair. Had ordered CTA Abd/Pelvis with runoff last week to evaluate for delayed postoperative hematoma given her new medial L thigh pain, seemingly increased swelling/tightness, acutely decreased Hgb, and reduced mobility with PT however this has not been completed due to insurance difficulties. She has since on Sunday had a repeat colonoscopy in which a polyp was removed and general diffuse inflammation was identified and oozing treated with argon plasma successfully. Lovenox held 07/08, she received PRB transfusion 07/09, Hgb 07/10 was 9.0, lovenox restarted 07/13, and Hgb 07/15 was 8.7. Fortunately, she reports that the evening before last her LLE pain suddenly went away; her prior L lateral thigh pain which has been present since surgery is gone and the new more anteromedial thigh pain is completely gone as well and she has not had any recurrence to this point. She reports she is even walking more and doing better with therapy. She has no complaints regarding her lower extremities today. She reports the incisions are also doing well. Her RLE edema had been improved, but she notes that after receiving IVs her R hand puffs up; however, still better than it was when DVT initially diagnosed. Objective Data Objective Data Vital Signs: Vital Signs Temp Pulse Resp BP Pulse Ox O2 Del Method 97.8 F 59 L 16 155/60 H 98 Room Air 07/16/25 16:00 07/16/25 16:00 07/16/25 16:00 07/16/25 16:00 07/16/25 16:00 07/16/25 16:00 Oxygen Delivery Method Room Air Weight: 183 lb 8 oz Body Mass Index (BMI) 29.5 Intake & Output: Intake and Output for Last 24 Hours 07/14/25 07/15/25 07/16/25 23:59 23:59 23:59 Intake Total 1410 / 1410 1270 / 1270 1560 / 1560 Balance 1410 / 1410 1270 / 1270 1560 / 1560 Lab / Micro Data 07/15/25 05:45 07/15/25 05:45 Labs: Laboratory Results - last 24 hr 07/16/25 06:21: POC Glucose 101 Micro: Microbiology 07/13/25 06:49 Nasal Secretion SARS-CoV-2 Antigen (Rapid) - Final 07/11/25 06:45 Nasal Secretion SARS-CoV-2 Antigen (Rapid) - Final 07/09/25 05:23 Nasal Secretion SARS-CoV-2 Antigen (Rapid) - Final 07/08/25 09:33 Stool Stool Occult Blood (ERICA) - Final Occult Blood Positive 06/16/25 20:50 Stool Stool Occult Blood (ERICA) - Final Occult Blood Positive 06/10/25 11:36 Blood Culture (Wb) - Anticubital Right Blood Culture - Final No growth in 5 days. 06/10/25 11:29 Blood Culture (Wb) - Anticubital Left Blood Culture - Final No growth in 5 days. 06/10/25 13:30 Wound Drainage - Aerobic & Anaerobic Swabs Gram Stain - Final 06/10/25 13:30 Wound Drainage - Aerobic & Anaerobic Swabs Wound Culture - Final Stenotrophomonas maltophilia Acinetobacter baumannii Meth. resistant Staph. aureus 06/10/25 13:30 Wound Drainage - Aerobic & Anaerobic Swabs Anaerobic Culture - Final No anaerobic bacteria isolated. 06/10/25 11:25 Urine Catheter - Catheter Urine Culture - Final Enterobacter asburiae 06/10/25 13:15 Stool C. difficile GDH Antigen & Toxins - Final Toxigenic C. difficile 06/10/25 13:15 Stool Clostridioides difficile (PCR) - Final 06/10/25 10:48 Mucosa - Nasopharyngeal Respiratory Panel (PCR) - Final 06/10/25 11:32 Nasal Secretion SARS-CoV-2 Antigen (Rapid) - Final 06/03/25 Unknown Stool Stool Occult Blood (ERICA) - Final Occult Blood Positive Physical Exam Const alert, oriented x3 and no apparent distress HEENT normocephalic, head/scalp atraumatic and external nose normal Eyes General Eye: normal appearance of both eyes Neck General: normal visual inspection Resp normal respiratory effort Effort and Inspection: able to speak in complete sentences Extremity Extremity Narrative: R hand with 1+ pitting edema, R arm with less edema but still present. L thigh with generalized edema slightly improved from last week Neuro Speech: speech normal Psych mental status grossly normal Appearance: grossly normal Assessment & Plan Assessment/Plan (1) Deep vein thrombosis of right upper extremity: (2) PAOD (peripheral arterial occlusive disease): (3) Anemia: (4) Chronic osteomyelitis of left foot: PLAN: Plan CTA runoff was never completed due to insurance difficulties; however, her L thigh pain has been completely resolved for about 2 days without recurrence, she had oozing identified and treated on colonoscopy, and Hgb has been stable over 1 week since her last transfusion and over 48 hours since Lovenox was restarted. For now, will not further pursue CTA. If she has recurrent pain or recurrent acute on chronic anemia would consider pursuing CTA runoff. Continue Lovenox for her LUE DVT with plan for 3 months total therapy. Continue to monitor Hgb closely. Will continue to follow. Will plan for f/u in the office after TCU discharge. She will also be following with [facility] regarding RLE revascularization options; she has not heard from them for an appt yet so will have the office reach out. Charges/Coding Procedures Integumentary [id number]: [id number] Global Visit
[2025-07-16 20:00] VITALS: PULSE 58; O2SAT 98
[2025-07-17] MEDS: 0.9% Saline Lock 10 ML Syringe IV ×2 (05:22→22:22)
[2025-07-17] MEDS: Ampicillin/Sulbactam 3 GM in 0.9% Normal Saline (100mL MB+) 100 ML IV ×3 (05:26→22:35)
[2025-07-17 08:35] VITALS: BP 150/58; PULSE 58; RESP 16; TEMP 36.4; O2SAT 97
[2025-07-17 08:38] VITALS: PULSE 58
[2025-07-17] MEDS: Metoprolol(XL)Succ 25 MG Tablet 6.25 MG PO (08:38)
[2025-07-17] MEDS: Lactobacillis Acidophilus 1 CAP PO (08:38)
--- NOTE | 2025-07-17 10:18 | PCM.PN.ID ---
Physical Exam Narrative Feeling better, wounds much improved, no fever, no n/v/d. Const alert and no apparent distress General Appearance: cooperative Resp normal air movement and clear to auscultation bilaterally Cardio regular rate and regular rhythm GI soft to palpation, non-tender and non-distended Skin Skin Narrative: no new rash ID ID: Route of nutrition/ use of supplements: [] Nutritional Intake: [] IV Site: [] Null Catheter: [] Assessment & Plan Assessment/Plan (1) Type 2 diabetes mellitus with foot ulcer: PLAN: Prior wound cx with MRSA, Acinetobacter, prevotella, and anaerobes. Developed fever, worsened ankle wound, cxs sent. Now cdiff (+). Started po vanc. Wound cx with MRSA, AcB, steno. Will cont iv vanc, unasyn, and levaquin. Cont po vanc. Plan on 6 weeks of abx, stop date 07/28/25. Overall much improved, cont abx as planned. Will follow (2) C. difficile diarrhea:
--- NOTE | 2025-07-17 10:57 | NURSING ---
Dr Crocker's office called to make appt. Made them aware that insurance denied CTA. Staff to discuss this with Dr Crocker and make us aware how they want to proceed.
[2025-07-17] MEDS: DAKIN'S SOL HALF STRENGTH (=0.25%) TOPICAL (11:36)
[2025-07-17] MEDS: 0.9 % NaCl (Sterile) Posiflush 10 mL IV (13:40)
[2025-07-17] MEDS: Vancomycin HCl 1,000 MG in 0.9% Normal Saline (250mL Bag) 250 ML 250 MG IV (13:40)
[2025-07-17] MEDS: 0.9% Normal Saline (250mL Bag) 250 ML 15 ML IV (13:41)
[2025-07-18] MEDS: 0.9% Saline Lock 10 ML Syringe IV ×3 (05:13→22:30)
[2025-07-18] MEDS: Ampicillin/Sulbactam 3 GM in 0.9% Normal Saline (100mL MB+) 100 ML IV ×3 (05:17→22:30)
--- NOTE | 2025-07-18 08:30 | NURSING ---
recreational therapy aide reported that pt scratched open scabs on RT upper arm, area bleeding. this nurse assessed area, placed dry dressing to area, taped gauze to secure.
[2025-07-18 09:35] VITALS: BP 143/55; PULSE 49; RESP 16; TEMP 36.6; O2SAT 98
[2025-07-18 09:39] VITALS: PULSE 49
[2025-07-18] MEDS: Metoprolol(XL)Succ 25 MG Tablet 6.25 MG PO (09:39)
[2025-07-18] MEDS: Lactobacillis Acidophilus 1 CAP PO (09:39)
[2025-07-18] MEDS: DAKIN'S SOL HALF STRENGTH (=0.25%) TOPICAL (09:42)
[2025-07-18] MEDS: Vancomycin Trough/Random Due 1 LAB MC (12:23)
[2025-07-18 13:08] LABS: Vancomycin, Trough Level 15.0 ug/mL (5.0-15.0)
[2025-07-18] MEDS: Vancomycin HCl 1,000 MG in 0.9% Normal Saline (250mL Bag) 250 ML 250 MG IV (13:29)
--- NOTE | 2025-07-18 13:30 | PCM.RX.CS ---
Consult Antibiotic Management Pharmacy has been consulted to manage selected antibiotic: Vancomycin Type of Intervention Type of Consult: Follow-up Suspected Infection Suspected Infection: Osteomyelitis Prior Doses of Antibiotics Prior Doses of Antibiotics Received/Current Regimen: Vancomycin 1000 mg Q24H last dose given 07/17 @ 1340 Labs Labs: Sodium 142 mmol/L (133-145) 07/15/25 05:45 Potassium 3.7 mmol/L (3.3-5.1) 07/15/25 05:45 Chloride 109 mmol/L (98-108) H 07/15/25 05:45 Carbon Dioxide 22.8 mmol/L (21.0-32.0) 07/15/25 05:45 Anion Gap 10 (5-15) 07/15/25 05:45 BUN 32 mg/dL (4-19) H 07/15/25 05:45 Creatinine 0.99 mg/dL (0.70-1.20) 07/15/25 05:45 Est GFR (MDRD) Non-Af 60 (>60) 07/15/25 05:45 BUN/Creatinine Ratio 31.7 RATIO (10-20) H 07/15/25 05:45 Glucose 109 mg/dL (70-99) H 07/15/25 05:45 Vancomycin Trough 15.0 ug/mL (5.0-15.0) 07/18/25 12:01 Random Vancomycin 16.8 ug/mL (0.0-15.0) H 07/03/25 10:00 Microbiology Microbiology: Microbiology 07/13/25 06:49 Nasal Secretion SARS-CoV-2 Antigen (Rapid) - Final 07/11/25 06:45 Nasal Secretion SARS-CoV-2 Antigen (Rapid) - Final 07/09/25 05:23 Nasal Secretion SARS-CoV-2 Antigen (Rapid) - Final 07/08/25 09:33 Stool Stool Occult Blood (ERICA) - Final Occult Blood Positive 06/16/25 20:50 Stool Stool Occult Blood (ERICA) - Final Occult Blood Positive 06/10/25 11:36 Blood Culture (Wb) - Anticubital Right Blood Culture - Final No growth in 5 days. 06/10/25 11:29 Blood Culture (Wb) - Anticubital Left Blood Culture - Final No growth in 5 days. 06/10/25 13:30 Wound Drainage - Aerobic & Anaerobic Swabs Gram Stain - Final 06/10/25 13:30 Wound Drainage - Aerobic & Anaerobic Swabs Wound Culture - Final Stenotrophomonas maltophilia Acinetobacter baumannii Meth. resistant Staph. aureus 06/10/25 13:30 Wound Drainage - Aerobic & Anaerobic Swabs Anaerobic Culture - Final No anaerobic bacteria isolated. 06/10/25 11:25 Urine Catheter - Catheter Urine Culture - Final Enterobacter asburiae 06/10/25 13:15 Stool C. difficile GDH Antigen & Toxins - Final Toxigenic C. difficile 06/10/25 13:15 Stool Clostridioides difficile (PCR) - Final 06/10/25 10:48 Mucosa - Nasopharyngeal Respiratory Panel (PCR) - Final 06/10/25 11:32 Nasal Secretion SARS-CoV-2 Antigen (Rapid) - Final 06/03/25 Unknown Stool Stool Occult Blood (ERICA) - Final Occult Blood Positive Dosing Weight Weight used for dosin kg Estimated Creatinine Clearance Estimated Creatinine Clearance: ~ 55 Goal Trough Goal Trough: 15-20 mcg/mL Pharmacy Plan for Drug Dosing Pharmacy Plan for Drug Dosing: Vancomycin trough = 15.0, continue current dosing, trough in 4 days. Pharmacy Service will continue to monitor and adjust dosing as required. Follow-Up Labs Follow-Up Labs: Trough: Vancomycin Date/Time Labs Ordered Labs to be done on [date and time ordered]: 07/23/25 @ 0860
[2025-07-18 15:50] VITALS: PULSE 60; RESP 16; O2SAT 99
[2025-07-18] MEDS: 0.9% Normal Saline (250mL Bag) 250 ML 150 ML IV (22:31)
[2025-07-19] MEDS: Ampicillin/Sulbactam 3 GM in 0.9% Normal Saline (100mL MB+) 100 ML IV ×3 (05:52→23:06)
[2025-07-19] MEDS: 0.9% Normal Saline (250mL Bag) 250 ML 150 ML IV (05:53)
[2025-07-19] MEDS: 0.9% Saline Lock 10 ML Syringe IV ×3 (05:54→23:01)
[2025-07-19 08:30] VITALS: BP 151/52; PULSE 53; RESP 16; TEMP 36.4; O2SAT 98
[2025-07-19] MEDS: Lactobacillis Acidophilus 1 CAP PO (08:35)
[2025-07-19 08:36] VITALS: PULSE 53
[2025-07-19] MEDS: Metoprolol(XL)Succ 25 MG Tablet 6.25 MG PO (08:36)
[2025-07-19] MEDS: Vancomycin HCl 1,000 MG in 0.9% Normal Saline (250mL Bag) 250 ML 250 MG IV (13:39)
--- NOTE | 2025-07-19 15:16 | NURSING ---
this life insurance underwriter returned from lunch at 1:15 & PODIATRIC SURGEON reported pt had picked skin off her bottom lip and could not get bleeding to stop. pressure held for approx 15-20 minutes several times. pt even tried holding lips tight together to add pressure along with ice pack. dr solomon notified, new order to apply gel foam. small gel foam placed to site with hemostasis within 2 minutes. educated pt not to pick scabs or skin d/t infection.
[2025-07-19] MEDS: DAKIN'S SOL HALF STRENGTH (=0.25%) TOPICAL (20:00)
[2025-07-19 20:43] VITALS: PULSE 60; RESP 16; O2SAT 98
[2025-07-19] MEDS: 0.9% Normal Saline (250mL Bag) 250 ML 15 ML IV (23:07)
[2025-07-20] MEDS: 0.9% Saline Lock 10 ML Syringe IV ×2 (05:37→22:35)
[2025-07-20] MEDS: Ampicillin/Sulbactam 3 GM in 0.9% Normal Saline (100mL MB+) 100 ML IV ×3 (05:39→22:34)
[2025-07-20 08:16] VITALS: BP 147/52; PULSE 58
[2025-07-20] MEDS: Metoprolol(XL)Succ 25 MG Tablet 6.25 MG PO (08:16)
[2025-07-20] MEDS: Lactobacillis Acidophilus 1 CAP PO (08:17)
[2025-07-20 10:00] VITALS: PULSE 60; RESP 16; O2SAT 99
[2025-07-20] MEDS: Vancomycin HCl 1,000 MG in 0.9% Normal Saline (250mL Bag) 250 ML 250 MG IV (13:13)
[2025-07-20 13:46] VITALS: BP 147/52; PULSE 58; RESP 16; TEMP 36.6; O2SAT 97
[2025-07-20] MEDS: DAKIN'S SOL HALF STRENGTH (=0.25%) TOPICAL (14:38)
--- NOTE | 2025-07-20 19:33 | NURSING ---
Pt complaining of itching everywhere believes it is from soap. No rash noted. DISTRICT SALES LEADER noted blood to toilet this morning. Pt currently on plavix and lovenox BID. Notified Dr. Al, who initally gave order for hydroxyzine, cancelled due to interaction with Levaquin which pt is on for foot ulcers. New orders for loratadine and to decrease lovenox dose to daily. See MAR
[2025-07-20] MEDS: 0.9% Normal Saline (250mL Bag) 250 ML 15 ML IV (22:34)
[2025-07-21] MEDS: Ampicillin/Sulbactam 3 GM in 0.9% Normal Saline (100mL MB+) 100 ML IV ×3 (05:54→22:58)
[2025-07-21] MEDS: 0.9% Normal Saline (250mL Bag) 250 ML 15 ML IV ×2 (05:54→22:45)
[2025-07-21 07:51] VITALS: BP 145/52; PULSE 57; TEMP 36.8; O2SAT 97
[2025-07-21 07:55] VITALS: PULSE 57
[2025-07-21] MEDS: Metoprolol(XL)Succ 25 MG Tablet 6.25 MG PO (07:55)
[2025-07-21] MEDS: Lactobacillis Acidophilus 1 CAP PO (07:56)
[2025-07-21 11:00] VITALS: BMI 29.1
[2025-07-21] MEDS: DAKIN'S SOL HALF STRENGTH (=0.25%) TOPICAL (11:27)
--- NOTE | 2025-07-21 12:03 | WOUNDNOTE ---
wound photo: right lateral heel
--- NOTE | 2025-07-21 12:04 | WOUNDNOTE ---
wound photo: left medial ankle
--- NOTE | 2025-07-21 12:05 | WOUNDNOTE ---
wound photo: left lateral foot
--- NOTE | 2025-07-21 12:05 | WOUNDNOTE ---
wound photo: left heel
[2025-07-21] MEDS: Vancomycin HCl 1,000 MG in 0.9% Normal Saline (250mL Bag) 250 ML 250 MG IV (12:25)
[2025-07-21] MEDS: 0.9 % NaCl (Sterile) Posiflush 10 mL IV (12:25)
[2025-07-21] MEDS: 0.9% Saline Lock 10 ML Syringe IV (22:39)
[2025-07-22] MEDS: 0.9% Saline Lock 10 ML Syringe IV ×2 (05:13→21:59)
[2025-07-22] MEDS: Ampicillin/Sulbactam 3 GM in 0.9% Normal Saline (100mL MB+) 100 ML IV ×3 (05:16→22:01)
[2025-07-22] MEDS: Lactobacillis Acidophilus 1 CAP PO (07:55)
[2025-07-22 07:56] VITALS: BP 142/51; PULSE 56
[2025-07-22] MEDS: Metoprolol(XL)Succ 25 MG Tablet 6.25 MG PO (07:56)
[2025-07-22] MEDS: DAKIN'S SOL HALF STRENGTH (=0.25%) TOPICAL (07:59)
[2025-07-22 08:19] LABS: Hematocrit 32.2 % (37-47); Hemoglobin 10.1 g/dL (12.0-15.0); Immature Granulocytes Count 0.010 X10^3/uL (0.0-0.0); Mean Corp Hgb Conc 31.4 g/dL (32-36); Mean Corpuscular Volume 91.0 fL (81-99); Mean Platelet Vol. 12.0 fl (6.2-12.0); NRBC Flagged by Analyzer 0 % (0-5); Platelet Count 154 K/mm3 (150-450); RBC Distribution Width CV 14.8 % (11.6-14.6); RBC Distribution Width SD 49.4 fl (35.1-43.9); Red Blood Count 3.54 M/mm3 (4.2-5.4); White Blood Count 5.3 K/mm3 (4.4-11.0)
[2025-07-22 08:28] LABS: Anion Gap 11 (5-15); BUN 40 mg/dL (4-19); BUN/Creat Ratio 35.4 RATIO (10-20); Calcium,Total 9.2 mg/dL (7.6-11.0); Carbon Dioxide 22.5 mmol/L (21.0-32.0); Chloride 110 mmol/L (98-108); Estimated Creatinine Clearance 48.37 ml/min (50-250); Glucose 89 mg/dL (70-99); Potassium 3.9 mmol/L (3.3-5.1)
[2025-07-22 11:05] VITALS: BP 142/51; PULSE 56; RESP 16; TEMP 36.4; O2SAT 97
[2025-07-22] MEDS: Vancomycin HCl 1,000 MG in 0.9% Normal Saline (250mL Bag) 250 ML 250 MG IV (13:13)
[2025-07-22] MEDS: 0.9 % NaCl (Sterile) Posiflush 10 mL IV ×2 (13:13→21:59)
[2025-07-22] MEDS: 0.9% Normal Saline (250mL Bag) 250 ML 15 ML IV ×2 (13:14→22:00)
[2025-07-23] MEDS: Ampicillin/Sulbactam 3 GM in 0.9% Normal Saline (100mL MB+) 100 ML IV ×3 (05:07→22:44)
[2025-07-23] MEDS: 0.9% Saline Lock 10 ML Syringe IV ×3 (05:07→22:37)
[2025-07-23 08:55] VITALS: BP 137/52; PULSE 58; RESP 17; TEMP 36.9; O2SAT 98
[2025-07-23 08:58] VITALS: PULSE 58
[2025-07-23] MEDS: Lactobacillis Acidophilus 1 CAP PO (08:58)
[2025-07-23] MEDS: Metoprolol(XL)Succ 25 MG Tablet 6.25 MG PO (08:58)
--- NOTE | 2025-07-23 12:09 | CASEMGMT ---
Social Work SW phoned brother to follow up on finalizing DC plans. Left detailed VM that insurance approved with [employer]D 07/27, EDC 07/30 as IV ATB are completed 07/28, and wanted to ensure the plan was home and ASSOCIATE ATTORNEY were in place. SW will await return call. Katarina Bunch MSW INDEPENDENT VIDEO PRODUCER
[2025-07-23] MEDS: DAKIN'S SOL HALF STRENGTH (=0.25%) TOPICAL (13:03)
[2025-07-23 13:12] VITALS: PULSE 52; RESP 17; O2SAT 96
[2025-07-23] MEDS: Vancomycin Trough/Random Due 1 LAB MC (13:25)
[2025-07-23 14:07] LABS: Vancomycin, Trough Level 19.0 ug/mL (5.0-15.0)
--- NOTE | 2025-07-23 14:21 | PCM.RX.CS ---
Consult Antibiotic Management Pharmacy has been consulted to manage selected antibiotic: Vancomycin Type of Intervention Type of Consult: Follow-up Suspected Infection Suspected Infection: Osteomyelitis Prior Doses of Antibiotics Prior Doses of Antibiotics Received/Current Regimen: Vancomycin 1000 mg Q24H last dose given 08/01 @ 1313 Labs Labs: Sodium 144 mmol/L (133-145) 07/22/25 07:38 Potassium 3.9 mmol/L (3.3-5.1) 07/22/25 07:38 Chloride 110 mmol/L (98-108) H 07/22/25 07:38 Carbon Dioxide 22.5 mmol/L (21.0-32.0) 07/22/25 07:38 Anion Gap 11 (5-15) 07/22/25 07:38 BUN 40 mg/dL (4-19) H 07/22/25 07:38 Creatinine 1.12 mg/dL (0.70-1.20) 07/22/25 07:38 Est GFR (MDRD) Non-Af 52 (>60) L 07/22/25 07:38 BUN/Creatinine Ratio 35.4 RATIO (10-20) H 07/22/25 07:38 Glucose 89 mg/dL (70-99) 07/22/25 07:38 Vancomycin Trough 19.0 ug/mL (5.0-15.0) H 07/23/25 12:45 Random Vancomycin 16.8 ug/mL (0.0-15.0) H 07/03/25 10:00 Microbiology Microbiology: Microbiology 07/13/25 06:49 Nasal Secretion SARS-CoV-2 Antigen (Rapid) - Final 07/11/25 06:45 Nasal Secretion SARS-CoV-2 Antigen (Rapid) - Final 07/09/25 05:23 Nasal Secretion SARS-CoV-2 Antigen (Rapid) - Final 07/08/25 09:33 Stool Stool Occult Blood (ERICA) - Final Occult Blood Positive 06/16/25 20:50 Stool Stool Occult Blood (ERICA) - Final Occult Blood Positive 06/10/25 11:36 Blood Culture (Wb) - Anticubital Right Blood Culture - Final No growth in 5 days. 06/10/25 11:29 Blood Culture (Wb) - Anticubital Left Blood Culture - Final No growth in 5 days. 06/10/25 13:30 Wound Drainage - Aerobic & Anaerobic Swabs Gram Stain - Final 06/10/25 13:30 Wound Drainage - Aerobic & Anaerobic Swabs Wound Culture - Final Stenotrophomonas maltophilia Acinetobacter baumannii Meth. resistant Staph. aureus 06/10/25 13:30 Wound Drainage - Aerobic & Anaerobic Swabs Anaerobic Culture - Final No anaerobic bacteria isolated. 06/10/25 11:25 Urine Catheter - Catheter Urine Culture - Final Enterobacter asburiae 06/10/25 13:15 Stool C. difficile GDH Antigen & Toxins - Final Toxigenic C. difficile 06/10/25 13:15 Stool Clostridioides difficile (PCR) - Final 06/10/25 10:48 Mucosa - Nasopharyngeal Respiratory Panel (PCR) - Final 06/10/25 11:32 Nasal Secretion SARS-CoV-2 Antigen (Rapid) - Final 06/03/25 Unknown Stool Stool Occult Blood (ERICA) - Final Occult Blood Positive Dosing Weight Weight used for dosin kg Estimated Creatinine Clearance Estimated Creatinine Clearance: ~ 48 Goal Trough Goal Trough: 15-20 mcg/mL Pharmacy Plan for Drug Dosing Pharmacy Plan for Drug Dosing: Vancomycin trough = 19.0, continue current dosing, end date 07/28/25, no further trough scheduled. Pharmacy Service will continue to monitor and adjust dosing as required.
[2025-07-23] MEDS: Vancomycin HCl 1,000 MG in 0.9% Normal Saline (250mL Bag) 250 ML 250 MG IV (14:45)
[2025-07-24] MEDS: 0.9% Saline Lock 10 ML Syringe IV ×2 (05:30→21:24)
[2025-07-24] MEDS: Ampicillin/Sulbactam 3 GM in 0.9% Normal Saline (100mL MB+) 100 ML IV ×3 (05:44→22:57)
[2025-07-24] MEDS: 0.9% Normal Saline (250mL Bag) 250 ML 15 ML IV ×2 (05:44→18:16)
[2025-07-24] MEDS: Lactobacillis Acidophilus 1 CAP PO (07:46)
[2025-07-24 07:50] VITALS: BP 159/64; PULSE 55
[2025-07-24] MEDS: Metoprolol(XL)Succ 25 MG Tablet 6.25 MG PO (07:50)
[2025-07-24] MEDS: DAKIN'S SOL HALF STRENGTH (=0.25%) TOPICAL (07:53)
[2025-07-24 10:00] VITALS: BP 159/64; PULSE 55; RESP 16; TEMP 36.8; O2SAT 97
--- NOTE | 2025-07-24 13:27 | WOUNDNOTE ---
Pt is off the unit for appt. nursing to change dressings to bilateral feet later this afternoon when patient returns.
[2025-07-24] MEDS: 0.9 % NaCl (Sterile) Posiflush 10 mL IV (17:19)
--- NOTE | 2025-07-24 17:35 | NURSING ---
Returns from vascular appt with [facility]. Patient reports they are hoping to do surgery in September but no appt made.
[2025-07-24] MEDS: Vancomycin HCl 1,000 MG in 0.9% Normal Saline (250mL Bag) 250 ML 250 MG IV (18:13)
[2025-07-25] MEDS: 0.9% Saline Lock 10 ML Syringe IV ×2 (05:21→21:11)
[2025-07-25] MEDS: Ampicillin/Sulbactam 3 GM in 0.9% Normal Saline (100mL MB+) 100 ML IV ×3 (05:31→21:24)
[2025-07-25 08:26] VITALS: BP 142/70; PULSE 65
[2025-07-25] MEDS: Metoprolol(XL)Succ 25 MG Tablet 6.25 MG PO (08:26)
[2025-07-25] MEDS: Lactobacillis Acidophilus 1 CAP PO (08:28)
[2025-07-25] MEDS: Vancomycin HCl 1,000 MG in 0.9% Normal Saline (250mL Bag) 250 ML 250 MG IV (12:38)
[2025-07-25 13:05] VITALS: BP 148/52; PULSE 98; RESP 18; TEMP 37.2; O2SAT 97
[2025-07-25] MEDS: DAKIN'S SOL HALF STRENGTH (=0.25%) TOPICAL (15:11)
[2025-07-25 15:41] VITALS: PULSE 54; RESP 16
[2025-07-26] MEDS: 0.9% Saline Lock 10 ML Syringe IV ×3 (05:08→21:58)
[2025-07-26] MEDS: Ampicillin/Sulbactam 3 GM in 0.9% Normal Saline (100mL MB+) 100 ML IV ×3 (05:11→22:09)
[2025-07-26] MEDS: Lactobacillis Acidophilus 1 CAP PO (09:12)
[2025-07-26] MEDS: DAKIN'S SOL HALF STRENGTH (=0.25%) TOPICAL (09:14)
[2025-07-26 09:15] VITALS: PULSE 61
[2025-07-26] MEDS: Metoprolol(XL)Succ 25 MG Tablet 6.25 MG PO (09:15)
[2025-07-26] MEDS: Vancomycin HCl 1,000 MG in 0.9% Normal Saline (250mL Bag) 250 ML 250 MG IV (12:35)
[2025-07-26 15:43] VITALS: BP 141/60; PULSE 62; RESP 18; TEMP 36.6; O2SAT 98
[2025-07-26 19:17] LABS: Hematocrit 28.8 % (37-47); Hemoglobin 9.2 g/dL (12.0-15.0); Immature Granulocytes Count 0.010 X10^3/uL (0.0-0.0); Mean Corp Hgb Conc 31.9 g/dL (32-36); Mean Corpuscular Volume 90.6 fL (81-99); Mean Platelet Vol. 11.7 fl (6.2-12.0); NRBC Flagged by Analyzer 0 % (0-5); Platelet Count 140 K/mm3 (150-450); RBC Distribution Width CV 14.9 % (11.6-14.6); RBC Distribution Width SD 49.8 fl (35.1-43.9); Red Blood Count 3.18 M/mm3 (4.2-5.4); White Blood Count 5.3 K/mm3 (4.4-11.0)
--- NOTE | 2025-07-26 19:20 | NURSING ---
CBC results received, Dr. Al updated via backline text, new order to repeat CBC tomorrow morning, verified by text back.
[2025-07-26] MEDS: 0.9% Normal Saline (250mL Bag) 250 ML 15 ML IV (22:05)
[2025-07-27] MEDS: 0.9% Saline Lock 10 ML Syringe IV ×3 (05:08→21:59)
[2025-07-27] MEDS: Ampicillin/Sulbactam 3 GM in 0.9% Normal Saline (100mL MB+) 100 ML IV ×3 (05:13→22:23)
[2025-07-27 07:43] VITALS: BP 103/44; PULSE 61; RESP 18; TEMP 36.3; O2SAT 98
[2025-07-27 07:48] VITALS: PULSE 61
[2025-07-27] MEDS: Metoprolol(XL)Succ 25 MG Tablet 6.25 MG PO (07:48)
[2025-07-27] MEDS: Lactobacillis Acidophilus 1 CAP PO (07:48)
[2025-07-27 08:49] LABS: Hematocrit 24.9 % (37-47); Hemoglobin 7.8 g/dL (12.0-15.0); Immature Granulocytes Count 0.010 X10^3/uL (0.0-0.0); Mean Corp Hgb Conc 31.3 g/dL (32-36); Mean Corpuscular Volume 91.9 fL (81-99); Mean Platelet Vol. 11.7 fl (6.2-12.0); NRBC Flagged by Analyzer 0 % (0-5); Platelet Count 131 K/mm3 (150-450); RBC Distribution Width CV 15.6 % (11.6-14.6); RBC Distribution Width SD 51.8 fl (35.1-43.9); Red Blood Count 2.71 M/mm3 (4.2-5.4); White Blood Count 5.4 K/mm3 (4.4-11.0)
--- NOTE | 2025-07-27 10:53 | NURSING ---
dr solomon updated on HGB 7.8, new order to consult Dr Yanez. transfuse 2 units blood. check occut stool pt updated on all orders.
[2025-07-27] MEDS: DAKIN'S SOL HALF STRENGTH (=0.25%) TOPICAL (11:11)
[2025-07-27] MEDS: Vancomycin HCl 1,000 MG in 0.9% Normal Saline (250mL Bag) 250 ML 250 MG IV (12:27)
--- NOTE | 2025-07-27 12:35 | WOUNDNOTE ---
wound photo: right lateral heel
--- NOTE | 2025-07-27 12:36 | WOUNDNOTE ---
wound photo: left medial ankle
--- NOTE | 2025-07-27 12:37 | WOUNDNOTE ---
wound photo: left lower leg
--- NOTE | 2025-07-27 12:38 | WOUNDNOTE ---
wound photo: left lateral lower leg
--- NOTE | 2025-07-27 12:38 | WOUNDNOTE ---
wound photo: left heel
--- NOTE | 2025-07-27 13:54 | CASEMGMT ---
Social Work Insurance issued LCD 07/29, DC 07/30 SW spoke with pt to notify of DC date. SW provided NOMNC to pt and educated to appeal rights. Pt verbalized understanding and denied appeal. Pt is agreeable to DC. Confirmed sister is coordinating nonskilled ENDLESS TRACK VEHICLE MECHANIC 4x/wk for about 4-5 hours/day. Pt confirmed using [facility] for PT/OT/SN. SW to place referral. Denied DME needs. Brother will transport home. - SW left VM with brother. - GEMA phoned referral to [facility] PT/OT/SN. Accepted. SOC 07/31. Plan: DC home alone 07/30, [facility] PT/OT/SN Katarina Bunch MSW LARD RENDERER
[2025-07-27 16:11] VITALS: PULSE 65; RESP 17; O2SAT 98
--- NOTE | 2025-07-27 16:57 | NURSING ---
Dr Yanez here, wants to do capsule endoscope on day of discharge, pt will bowel prep on Sunday night, Friend to place orders.
--- NOTE | 2025-07-27 17:10 | PN_ITS ---
Progress Note 75-year-old woman with a complex history of recurrent lower gastrointestinal bleeding presents with another episode of hematochezia (bright red blood per rectum). * The patient reports the bleeding started 2 days agoand describes the blood as dark maroon, mixed with stool, clots]. * She reports associated symptoms of eeling lightheaded, fatigue, abdominal cramping. * There is no report of abdominal pain with the bleeding, which is consistent with previous episodes of diverticular bleeding. * She has a long history of recurrent lower GI bleeds caused by multiple etiologies, including diverticulosis, hemorrhoids, recurrent ischemic colitis, and colonic arteriovenous malformations (AVMs). * She denies any signs of upper GI bleeding, such as coffee-ground emesis or black, tarry stools (melena). * She denies recent use of nonsteroidal anti-inflammatory drugs (NSAIDs) or other agents that might increase bleeding risk. Physical Exam Const alert, oriented x3, no apparent distress and healthy appearing General Appearance: cooperative GI normal to inspection, nondistended, normoactive bowel sounds, soft to palpation, non-tender and non-distended Percussion: normal to percussion Rectal Exam: deferred Assessment & Plan Assessment/Plan (1) GI bleed: PLAN: The patient is a 75-year-old woman with a multi-factorial etiology of recurrent lower GI bleeding. The current presentation of hematochezia is consistent with a lower GI source. The differential diagnoses include: * Recurrent diverticular bleeding:?A common cause of painless, brisk hematochezia in the elderly. * Bleeding from angiodysplastic lesions (AVMs):?Often recurrent and associated with intermittent bleeding. * Recurrent ischemic colitis:?Can present with cramping and bleeding, particularly in the elderly with vascular risk factors. * Hemorrhoidal bleeding:?Can cause bright red blood, but less likely to cause significant blood loss or hemodynamic instability unless severe. Patient will undergo a capsule endoscopy for , 07/30/2025. She will have to do the prep the day prior to clean out the small bowel.. Visit Charges Inpatient E&M: [address] [facility] Subs L3
--- NOTE | 2025-07-27 21:20 | DS.PCM_ITS ---
Providers Date of Admission: 06/01/25 Primary Care Physician: Dr. Rishi Vasquez, DO Consultations 06/01/25 18:53 Consult: Onc/Wound/multimedia engineer Routine Comment: Reason for Consult:: BLE skin graft sites and open areas to buttocks and coccyx 06/03/25 17:22 Consult: Gastroenterology Routine Consulting Provider: [facility] Reason for Consult: Anemia, +Hemoccult. EMERGENT Consult: No MD Notified: Yes Date Notified: 06/03/25 Time Notified: 17:22 Method of Notification: Text Consult: Podiatry Routine Consulting Provider: Patel Irene Reason for Consult: Left foot osteomyelitis. EMERGENT Consult: No MD Notified: Yes Date Notified: 06/03/25 Time Notified: 17:23 Method of Notification: Text 06/04/25 09:22 Consult: Infectious Disease Routine Consulting Provider: Kwaku Mendoza Reason for Consult: wound cultures EMERGENT Consult: No MD Notified: Yes Date Notified: 06/04/25 Time Notified: 09:23 Method of Notification: Text 06/19/25 13:56 Consult: Vascular Surgery Routine Consulting Provider: Abena Fiore Reason for Consult: RUE PICC DVT; anemia, +hemoccult, aspirin/plavix, treatment option? EMERGENT Consult: No MD Notified: Yes Date Notified: 06/19/25 Time Notified: 14:34 Method of Notification: Verbal 07/27/25 10:35 Consult: Gastroenterology Routine Consulting Provider: [facility] Reason for Consult: anemia EMERGENT Consult: No MD Notified: Yes Date Notified: 07/27/25 Time Notified: 10:36 Method of Notification: Text Reason For Visit: GENERALIZED WEAKNESS Diagnosis Discharge Diagnosis (1) GI bleed: Status: Acute Code(s): K92.2 - Gastrointestinal hemorrhage, unspecified Plan 75 year old female with below past medical history hospitalized for fall, recent mrsa bacteremia, underwent left lower extremity revascularization 05/26/[address] Clement, admitted to TCU with debility, here for rehabilitation, strengthening, prior to discharge home alone. * Debility - PT/OT. * Pain - Tylenol 1000mg q6 prn pain (1-3), Oxycodone 5mg q4 prn pain (4-10). * Bowel - senna/colace 2 tablets bid prn, Magnesium citrate 300mL daily prn. * Adult immunization - Administer pneumonia vaccine, covid vaccine, flu vaccine as appropriate. * DVT prophylaxis - Lovenox 80mg sc q12. * Right upper extremity dvt - Lovenox 80mg sc q12. * Osteomyelitis left foot - appreciate Dr. Mendoza, Unasyn 3gm iv q8, Levaquin 250mg daily, Vancomycin 1gm iv q24. Appreciate Dr. Irene. * Bilateral foot wounds - appreciate Annmarie Robb Dakins daily. * Hypertension - Metoprolol succinate 6.25mg daily. * Iron deficiency anemia - Vitamin C 1000mg daily, Ferrous sulfate 325mg daily. * PAOD - Plavix 75mg daily, appreciate Dr. Clement, Abena Fiore, next step is revascularization surgery right lower extremity at [facility]. Patient is willing. * Hyperlipidemia - Atorvastatin 10ng qhs, [place] 3 1 gram daily. * Indigestion - TUMS 500mg daily. * Diabetes Mellitus II - Glimepiride 1mg bid. * GI prophylaxis - Lactobacillus 1 capsule daily. * Skin irritation - Calmoseptine topical bid. * Nutrition - MVI 1 tablet daily. * Diabetic polyneuropathy - Lyrica 100mg tid, Neuropathy pain cream 2 clicks topical bid prn. * Tinea Corporis - Nystatin topical bid. * Gastric ulcer - Pantoprazole 40mg bid, Sucralfate 1gm bid. Medications at Discharge Home Medications ferrous sulfate 325 mg (65 mg iron) tablet 325 mg PO DAILY SUPPLEMENT 08/15/18 ascorbic acid (vitamin C) 500 mg tablet 1,000 mg PO LUNCH Supplement 11/25/20 clopidogrel 75 mg tablet 75 mg PO DAILY Blood clots #90 tabs 10/23/24 glimepiride 2 mg tablet 1 mg PO DAILY Diabetes 05/18/25 metoprolol succinate 25 mg tablet,extended release 24 hr 6.25 mg PO DAILY HEART RATE 07/13/25 acetaminophen 500 mg tablet 1,000 mg (2 x 500 mg) PO Q6H PRN PRN Pain Score 1-5 #0 tabs 07/27/25 atorvastatin 10 mg tablet 10 mg PO QHS 30 days #30 tabs 07/27/25 calcium carbonate 500 mg (2.5 x 200 mg calcium (500 mg)) PO DAILYCM #0 tabs 07/27/25 pantoprazole 40 mg tablet,delayed release 40 mg PO BID 30 days #60 tabs 07/27/25 pregabalin 50 mg capsule 100 mg (2 x 50 mg) PO TID 30 days #180 caps 07/27/25 Hospital Course Operations - (See below.) Procedures Colonoscopy and EGD Summary of Care Provided Minutes Spent on Discharge: 35 Hospital Course: 75 year old female with below past medical history hospitalized for fall, recent mrsa bacteremia, underwent left lower extremity revascularization 05/26/[address] Clement, admitted to TCU with debility, here for rehabilitation, strengthening, prior to discharge home alone. 06/05/2025 Dr. Yanez EGD: Impressions : - LA Grade D erosive esophagitis with bleeding. Treated with a heater probe. - Non-bleeding gastric ulcers with no stigmata of bleeding. Biopsied. - Oozing duodenal ulcers with a visible vessel. Treated with a heater probe. - Two non-bleeding angiodysplastic lesions in the duodenum. Treated with a heater probe. Recommendations : - Return patient to referring hospital. - Use Protonix (pantoprazole) 40 mg PO BID for 3 months. - Use sucralfate tablets 1 gram PO BID for 1 month. - Continue present medications. 06/19/2025 Doppler ultrasound right upper extremity positive RUE DVT, treat with Lovenox injections. 06/30/2025 Dr. Clement: Surgery/Procedure Performed: Exploration right common femoral and distal external iliac artery Aborted femoral endarterectomy and femoral peroneal bypass 07/13/2025 Dr. Yanez colonoscopy: Impression: - Stool in the rectum, in the sigmoid colon, in the descending colon and in the cecum. - Diverticulosis in the recto-sigmoid colon, in the sigmoid colon and in the descending colon. - Diffuse moderate inflammation was found in the recto-sigmoid colon, in the sigmoid colon, in the descending colon, in the ascending colon and in the cecum secondary to ischemic colitis. Treated with argon plasma coagulation (APC). - One 7 mm polyp in the cecum, removed with a jumbo cold forceps. Resected and retrieved. 07/21/2025 Doppler ultrasound right upper extremity showed resolution RUE DVT. 07/27/2025 Hemoglobin 7.8, +hemoccult, transfuse 2 units PRBC, Dr. Yanez planning capsule endoscopy 07/30/2025. Discharge home alone 07/30/2025, [facility] PT/OT/SN. Physical Exam Const alert General Appearance: cooperative HEENT normocephalic Eyes PERRL and EOMs intact bilaterally Neck supple, no JVD and no carotid bruits Resp normal respiratory effort, normal air movement and clear to auscultation bilaterally Cardio regular rate and regular rhythm GI normal to inspection, nondistended, normoactive bowel sounds, non-tender and non-distended Extremity normal capillary refill Extremity Narrative: Left lower extremity dressed, boot. General Extremity: Negative for edema Skin no rashes or lesions noted General Skin Exam: no breakdown Psych affect normal Appearance: appropriate Weight / BMI Weight Weight: 82.282 kg Body Mass Index (BMI) 29.1 ABG / Lab / Microbiology Data 07/27/25 08:25 07/22/25 07:38 Laboratory: Laboratory Results - last 24 hr 07/27/25 06:26: POC Glucose 110 H 07/27/25 08:25: WBC 5.4, RBC 2.71 L, Hgb 7.8 L, Hct 24.9 L, MCV 91.9, MCH 28.8, MCHC 31.3 L, RDW Std Deviation 51.8 H, RDW Coeff of Jorgito 15.6 H, Plt Count 131 L, MPV 11.7, Immature Gran % (Auto) 0.200, Neut % (Auto) 66.2, Lymph % (Auto) 15.6 L, [place] % (Auto) 8.9, Eos % (Auto) 8.0 H, Baso % (Auto) 1.1 H, Absolute Neuts (auto) 3.6, Absolute Lymphs (auto) 0.84, Nucleated RBC % 0, Blood Type A POSITIVE, Antibody Screen NEGATIVE, Crossmatch See Detail 07/27/25 16:24: POC Glucose 169 H Microbiology: Microbiology 07/27/25 10:55 Stool Stool Occult Blood (ERICA) - Final Occult Blood Positive 07/13/25 06:49 Nasal Secretion SARS-CoV-2 Antigen (Rapid) - Final 07/11/25 06:45 Nasal Secretion SARS-CoV-2 Antigen (Rapid) - Final 07/09/25 05:23 Nasal Secretion SARS-CoV-2 Antigen (Rapid) - Final 07/08/25 09:33 Stool Stool Occult Blood (ERICA) - Final Occult Blood Positive 06/16/25 20:50 Stool Stool Occult Blood (ERICA) - Final Occult Blood Positive 06/10/25 11:36 Blood Culture (Wb) - Anticubital Right Blood Culture - Final No growth in 5 days. 06/10/25 11:29 Blood Culture (Wb) - Anticubital Left Blood Culture - Final No growth in 5 days. 06/10/25 13:30 Wound Drainage - Aerobic & Anaerobic Swabs Gram Stain - Final 06/10/25 13:30 Wound Drainage - Aerobic & Anaerobic Swabs Wound Culture - Final Stenotrophomonas maltophilia Acinetobacter baumannii Meth. resistant Staph. aureus 06/10/25 13:30 Wound Drainage - Aerobic & Anaerobic Swabs Anaerobic Culture - Final No anaerobic bacteria isolated. 06/10/25 11:25 Urine Catheter - Catheter Urine Culture - Final Enterobacter asburiae 06/10/25 13:15 Stool C. difficile GDH Antigen & Toxins - Final Toxigenic C. difficile 06/10/25 13:15 Stool Clostridioides difficile (PCR) - Final 06/10/25 10:48 Mucosa - Nasopharyngeal Respiratory Panel (PCR) - Final 06/10/25 11:32 Nasal Secretion SARS-CoV-2 Antigen (Rapid) - Final 06/03/25 Unknown Stool Stool Occult Blood (ERICA) - Final Occult Blood Positive D/C Instructions Discharge Activity: Return to Normal Activity, May Shower and Use Walker Weight Bearing Status: Weight bearing as tolerated Call your doctor if you observe: Fever of 101 or Higher, Inability to urinate, Inability to have a bowel movement, Shortness of breath, Dizziness, Fainting spells, Swelling in the ankles, Chest pain and Uncontrolled pain DC O2, CPAP, BIPAP Needs Home O2 Discharge instructions: No Additional Instructions: Discharge home alone 07/30/2025, [facility] PT/OT/SN. Please Follow Up With: Patel Irene DPM When: As scheduled. Meaningful Use Info Meaningful Use Meaningful Use Diagnoses (Choose all that apply): None applicable Discharge Plan Admission Admit Date/Time: 06/01/25 18:21 Primary Reason for Your Visit: Debility. Attending Provider: Phong Al Chi Primary Care Provider: Rishi Vasquez Consulting Providers: Patel Irene; Kwaku Mendoza; Abena Fiore; Broderick Dempsey; Ortega Yanez; Mabel Minor; Maddi De La Torre; Jennifer Rodriguez Instructions Additional Instructions / Restrictions: Discharge home alone 07/30/2025, [facility] PT/OT/SN. Discharge Orders/Prescriptions Prescriptions: New acetaminophen 500 mg Tablet 1,000 mg PO Q6H PRN PRN (Reason: Pain Score 1-5) Qty: 0 0RF atorvastatin 10 mg Tablet 10 mg PO QHS 30 Days Qty: 30 0RF calcium carbonate 200 mg calcium (500 mg) Tablet,Chewable 500 mg PO DAILYCM Qty: 0 0RF pantoprazole 40 mg Tablet,Delayed Release (Dr/Ec) 40 mg PO BID 30 Days Qty: 60 0RF pregabalin 50 mg Capsule 100 mg PO TID 30 Days Qty: 180 0RF Continued ascorbic acid (vitamin C) 500 mg tablet 1,000 mg PO LUNCH Patient Comments: supplement ferrous sulfate 325 MG tablet 325 mg PO DAILY glimepiride 2 mg tablet 1 mg PO DAILY metoprolol succinate 25 mg tablet extended release 24 hr 6.25 mg PO DAILY clopidogrel 75 mg tablet 75 mg PO DAILY Qty: 90 3RF Patient Comments: ask about stopping Discontinued nystatin [Nyamyc] 100,000 unit/gram powder 1 applic topical BID PRN (Reason: rash) Protocol: *Topical Application Instructions APPLICATION INSTRUCTIONS: apply to abdominal folds, under breasts omega-3 fatty acids-fish oil 1 EACH capsule 1 ea PO DAILY Patient Comments: supplement menthol-zinc oxide [Calmoseptine] 0.44-20.6 % Ointment 1 applic topical BID Qty: 0 0RF Protocol: *Topical Application Instructions APPLICATION INSTRUCTIONS: groin oxycodone 5 mg Tablet 5 mg PO Q4H PRN PRN (Reason: Pain Score 4-10) Qty: 0 0RF pregabalin 100 mg capsule 100 mg PO TID sucralfate [Carafate] 1 gram tablet 1 g PO TID pregabalin [Lyrica] 100 mg capsule 100 mg PO TID ampicillin-sulbactam 3 gram recon soln 3 g IV Q8H levofloxacin 250 mg tablet 250 mg PO DAILY vancomycin 1,000 mg recon soln 1 g IV .q24 enoxaparin [Lovenox] 80 mg/0.8 mL syringe 80 mg subcut Q12H pantoprazole 40 mg tablet,delayed release (DR/EC) 40 mg PO BID Referrals / Follow Up: Rishi Vasquez DO [Primary Care Provider] - Disposition Disposition (needs filled in before D/C Order can be placed): Home Health Service
[2025-07-28] VITALS (9 sets, daily range): BP systolic 128–155; BP diastolic 43–49; PULSE 49–60; RESP 16; TEMP 35.7–36.3; O2SAT 99–100; BMI 29.2; BMI 28.3
[2025-07-28] MEDS: 0.9% Saline Lock 10 ML Syringe IV ×4 (05:03→22:19)
[2025-07-28] MEDS: Ampicillin/Sulbactam 3 GM in 0.9% Normal Saline (100mL MB+) 100 ML IV ×3 (05:07→22:17)
[2025-07-28] MEDS: Lactobacillis Acidophilus 1 CAP PO (08:01)
[2025-07-28] MEDS: Metoprolol(XL)Succ 25 MG Tablet 6.25 MG PO (08:02)
[2025-07-28 08:14] LABS: Hematocrit 23.9 % (37-47); Hemoglobin 7.3 g/dL (12.0-15.0)
--- NOTE | 2025-07-28 10:42 | CASEMGMT ---
Addendum entered by Katarina Bunch 07/28/25 14:27: SW phoned brother to follow up on appeal outcome. Brother stated he spoke with the pt and pt did not want to file the appeal. Though, brother still expressing frustration with pt bleeding, needing transfusions, and ordering a procedure after the pt gets DC'd. SW suggested the brother contact Dr. Yanez's office as he is the one providing orders to TCU nursing staff. Brother agreed and plans to do so. SW updated IDT that pt is not appealing. Original Note: Social Work SW received call from pts brother with concerns for pt's bleeding and insurance still issuing DC date. Brother asking additional questions and SW offered to transfer to the nurse as that is outside this worker's scope. Brother stated he will be in to visit this afternoon and can speak with the nurse at that time. SW offered that there is still time to appeal - appeal must be completed by noon this date. Brother interested in appeal. SW verbally provided instructions and information. Brother to notify this worker with case number once completed. SW offered for brother to speak with the Dr this evening as well. Brother appreciative. SW will continue to follow. Notified IDT of appeal. Katarina Bunch BELT CONVEYOR DRIER CUSTOMER CONSULTING MANAGER
--- NOTE | 2025-07-28 13:41 | NURSING ---
PT RETURNED TO FLOOR BY WHEEL CHAIR FROM BLOOD TRANSFUSION AT 1330.
[2025-07-28] MEDS: DAKIN'S SOL HALF STRENGTH (=0.25%) TOPICAL (14:04)
[2025-07-28] MEDS: Vancomycin HCl 1,000 MG in 0.9% Normal Saline (250mL Bag) 250 ML 250 MG IV (14:06)
--- NOTE | 2025-07-28 16:42 | PCM.PN.BLA ---
Progress Note Patient's hemoglobin is down to 7.3 today. If her hemoglobin continues to drop tomorrow then we will prep her for a colonoscopy. The plan is still for her to get a capsule endoscopy on , 07/30/2025 Physical Exam Const alert General Appearance: cooperative HEENT normocephalic Eyes PERRL and EOMs intact bilaterally Neck supple, no JVD and no carotid bruits Resp normal respiratory effort, normal air movement and clear to auscultation bilaterally Cardio regular rate and regular rhythm GI normal to inspection, nondistended, normoactive bowel sounds, non-tender and non-distended Extremity normal capillary refill Extremity Narrative: Left lower extremity dressed, boot. General Extremity: Negative for edema Skin no rashes or lesions noted General Skin Exam: no breakdown Psych affect normal Appearance: appropriate Assessment & Plan Assessment/Plan (1) GI bleed: PLAN: The patient is a 75-year-old woman with a multi-factorial etiology of recurrent lower GI bleeding. The current presentation of hematochezia is consistent with a lower GI source. The differential diagnoses include: Recurrent diverticular bleeding:?A common cause of painless, brisk hematochezia in the elderly. Bleeding from angiodysplastic lesions (AVMs):?Often recurrent and associated with intermittent bleeding. Recurrent ischemic colitis:?Can present with cramping and bleeding, particularly in the elderly with vascular risk factors. Hemorrhoidal bleeding:?Can cause bright red blood, but less likely to cause significant blood loss or hemodynamic instability unless severe. Check CBC in the morning for possible colonoscopy. Patient will undergo a capsule endoscopy for , 07/30/2025. She will have to do the prep the day prior to clean out the small bowel.. Visit Charges Inpatient E&M: [address] [facility] Subs L3
[2025-07-29 08:13] LABS: Hematocrit 30.7 % (37-47); Hemoglobin 10.0 g/dL (12.0-15.0); Immature Granulocytes Count 0.010 X10^3/uL (0.0-0.0); Mean Corp Hgb Conc 32.6 g/dL (32-36); Mean Corpuscular Volume 90.6 fL (81-99); Mean Platelet Vol. 12.4 fl (6.2-12.0); NRBC Flagged by Analyzer 0 % (0-5); Platelet Count 122 K/mm3 (150-450); RBC Distribution Width CV 15.6 % (11.6-14.6); RBC Distribution Width SD 51.5 fl (35.1-43.9); Red Blood Count 3.39 M/mm3 (4.2-5.4); White Blood Count 5.1 K/mm3 (4.4-11.0)
[2025-07-29 08:16] VITALS: BP 129/46; PULSE 56; RESP 18; TEMP 36.6; O2SAT 97
[2025-07-29] MEDS: Lactobacillis Acidophilus 1 CAP PO (08:19)
[2025-07-29 08:20] VITALS: PULSE 56
[2025-07-29] MEDS: Metoprolol(XL)Succ 25 MG Tablet 6.25 MG PO (08:20)
[2025-07-29 08:47] LABS: Anion Gap 10 (5-15); BUN 45 mg/dL (4-19); BUN/Creat Ratio 35.9 RATIO (10-20); Calcium,Total 8.9 mg/dL (7.6-11.0); Carbon Dioxide 23.5 mmol/L (21.0-32.0); Chloride 110 mmol/L (98-108); Estimated Creatinine Clearance 42.42 ml/min (50-250); Glucose 121 mg/dL (70-99); Potassium 3.9 mmol/L (3.3-5.1)
--- NOTE | 2025-07-29 08:54 | EX.PCM.PN.GI ---
Subjective Subjective COLON 07/13/2025 cecal TA - Stool in the rectum, in the sigmoid colon, in the descending colon and in the cecum. - Diverticulosis in the recto-sigmoid colon, in the sigmoid colon and in the descending colon. - Diffuse moderate inflammation was found in the recto-sigmoid colon, in the sigmoid colon, in the descending colon, in the ascending colon and in the cecum secondary to ischemic colitis. Treated with argon plasma coagulation (APC). - One 7 mm polyp in the cecum, removed with a jumbo cold forceps. Resected and retrieved. - Repeat colonoscopy in 1 year for surveillance. EGD 06/05/2025 - LA Grade D erosive esophagitis with bleeding. Treated with a heater probe. - Non-bleeding gastric ulcers with no stigmata of bleeding. Biopsied. - Oozing duodenal ulcers with a visible vessel. Treated with a heater probe. - Two non-bleeding angiodysplastic lesions in the duodenum. Treated with a heater probe. - Use Protonix (pantoprazole) 40 mg PO BID for 3 months. - Use sucralfate tablets 1 gram PO BID for 1 month. - this past Sunday, sudden onset BRBPR with diarrhea, several episodes, not associated with any pain (abdominal or rectal) - dripping blood on floor and in depends - continued to have bleeding episodes Sunday and Sunday - denies any bleeding since yesterday afternoon - HGB down to 7.3, 2u PRBC yesterday, now 10 - reports this is the exact same way symptoms presented in June, painless BRBPR - denies any burgundy, dark red, or black stools - denies any h/o intestinal surgery or obstruction - ate breakfast today - denies any melena, remains on pantoprazole 40mg BID - patient sitting up in chair at bedside - GORGE Dhillon ([id number]) at bedside Plavix QD Pantoprazole 40mg BID ferrous sulfate 325 QD Vitamin C QD Objective Data Objective Data Vital Signs: Vital Signs Temp Pulse Resp BP Pulse Ox O2 Del Method 97.9 F 56 L 18 129/46 H 97 Room Air 07/29/25 08:16 07/29/25 08:20 07/29/25 08:16 07/29/25 08:16 07/29/25 08:16 07/29/25 08:16 Oxygen Delivery Method Room Air Weight: 176 lb 4.8 oz Body Mass Index (BMI) 28.3 Intake & Output: Intake and Output for Last 24 Hours 07/27/25 07/28/25 07/29/25 23:59 23:59 23:59 Intake Total 1632 / 1632 1892.75 / 1892.75 Balance 1632 / 1632 1892.75 / 1892.75 Lab / Micro Data Attestation: I reviewed the patient's lab results. 07/29/25 07:52 07/29/25 07:52 Labs: Laboratory Results - last 24 hr 07/27/25 08:25: Blood Type A POSITIVE, Antibody Screen NEGATIVE, Crossmatch See Detail 07/28/25 16:42: POC Glucose 116 H 07/29/25 05:49: POC Glucose 73 L 07/29/25 07:33: POC Glucose 123 H 07/29/25 07:52: WBC 5.1, RBC 3.39 L, Hgb 10.0 L, Hct 30.7 L, MCV 90.6, MCH 29.5, MCHC 32.6, RDW Std Deviation 51.5 H, RDW Coeff of Jorgito 15.6 H, Plt Count 122 L, MPV 12.4 H, Immature Gran % (Auto) 0.200, Neut % (Auto) 61.9, Lymph % (Auto) 15.7 L, [place] % (Auto) 11.2 H, Eos % (Auto) 9.4 H, Baso % (Auto) 1.6 H, Absolute Neuts (auto) 3.1, Absolute Lymphs (auto) 0.80 L, Nucleated RBC % 0, Sodium 143, Potassium 3.9, Chloride 110 H, Carbon Dioxide 23.5, Anion Gap 10, BUN 45 H, Creatinine 1.26 H, Estim Creat Clear Calc 42.42 L, Est GFR (MDRD) Non-Af 45 L, BUN/Creatinine Ratio 35.9 H, Glucose 121 H, Calcium 8.9 Micro: Microbiology 07/27/25 10:55 Stool Stool Occult Blood (ERICA) - Final Occult Blood Positive 07/13/25 06:49 Nasal Secretion SARS-CoV-2 Antigen (Rapid) - Final 07/11/25 06:45 Nasal Secretion SARS-CoV-2 Antigen (Rapid) - Final 07/09/25 05:23 Nasal Secretion SARS-CoV-2 Antigen (Rapid) - Final 07/08/25 09:33 Stool Stool Occult Blood (ERICA) - Final Occult Blood Positive 06/16/25 20:50 Stool Stool Occult Blood (ERICA) - Final Occult Blood Positive 06/10/25 11:36 Blood Culture (Wb) - Anticubital Right Blood Culture - Final No growth in 5 days. 06/10/25 11:29 Blood Culture (Wb) - Anticubital Left Blood Culture - Final No growth in 5 days. 06/10/25 13:30 Wound Drainage - Aerobic & Anaerobic Swabs Gram Stain - Final 06/10/25 13:30 Wound Drainage - Aerobic & Anaerobic Swabs Wound Culture - Final Stenotrophomonas maltophilia Acinetobacter baumannii Meth. resistant Staph. aureus 06/10/25 13:30 Wound Drainage - Aerobic & Anaerobic Swabs Anaerobic Culture - Final No anaerobic bacteria isolated. 06/10/25 11:25 Urine Catheter - Catheter Urine Culture - Final Enterobacter asburiae 06/10/25 13:15 Stool C. difficile GDH Antigen & Toxins - Final Toxigenic C. difficile 06/10/25 13:15 Stool Clostridioides difficile (PCR) - Final 06/10/25 10:48 Mucosa - Nasopharyngeal Respiratory Panel (PCR) - Final 06/10/25 11:32 Nasal Secretion SARS-CoV-2 Antigen (Rapid) - Final 06/03/25 Unknown Stool Stool Occult Blood (ERICA) - Final Occult Blood Positive Physical Exam Narrative Sitting up in chair at bedside, A&O x3, pleasant Const no apparent distress, average body habitus and healthy appearing Eyes conjunctivae normal Neck full ROM Resp Effort and Inspection: able to speak in complete sentences and symmetric chest movement GI normal to inspection, nondistended, normoactive bowel sounds, soft to palpation, non-tender and non-distended Palpation: soft Rectal Exam: deferred Extremity Extremity Narrative: WILLSON x4 Assessment & Plan Assessment/Plan (1) GI bleed: PLAN: Plan 75y/o female with severe PVD on clopidogrel, recent left lower extremity revascularization, and a history of upper GI ulcers, presenting with recurrent, acute, painless, bright red rectal bleeding associated with diarrhea. She experienced a significant hemoglobin drop (10.1 to 7.3), requiring transfusion, with subsequent stabilization. Colonoscopy one month ago revealed diverticulosis and diffuse moderate ischemic colitis, treated with APC, and a cecal tubular adenoma. No ongoing bleeding is reported, and her current hemoglobin is stable post-transfusion. She is on appropriate GI prophylaxis with pantoprazole due to prior ulcers and antiplatelet therapy. Capsule endoscopy is not indicated given a clear colonic source and no evidence of small bowel bleeding. Follow-up with GI out-patient, she should have a repeat EGD to confirm healing of previously noted Grade D esophagitis and ulcers. Continue pantoprazole 40mg BID. Continue monitoring for recurrent bleeding. No further inpatient GI workup is indicated at this time Continue clopidogrel for peripheral vascular disease, balancing bleeding and thrombotic risks. Continue oral iron and vitamin C, being sure to take at least 1 hour apart from PPI. She is appropriate for discharge from a GI standpoint with close outpatient follow-up, as her bleeding has resolved, and she is hemodynamically stable.
[2025-07-29] MEDS: DAKIN'S SOL HALF STRENGTH (=0.25%) TOPICAL (09:24)
--- NOTE | 2025-07-29 09:36 | NURSING ---
CARRIAGE OPERATOR MONICA KNOX FROM DR. WAY'S OFFICE IN THIS MORNING AND MET WITH Chau' REGARDING CAPSULE SCOPE TOMORROW. SHE STATES SHE WILL PLACE ORDERS IN SHORTLY. ASKED IF R' WAS ALSO GOING TO HAVE COLONOSCOPY TOMORROW, SHE STATED SHE HAD ONE 07/13 AND DIDN'T THINK IT WOULD BE NECESSARY BUT WILL CHECK WITH DR WAY AND LET NURSING KNOW IF HE DOES INTEND ON DOING THIS WELL.
--- NOTE | 2025-07-29 10:34 | NURSING ---
Addendum entered by Jacquie Sherman 07/29/25 12:29: SPOKE WITH SPINNING AND WINDING SUPERVISOR AGAIN AND CLARIFIED IF R' NEEDS TO BE SEEN OUTPT. SHE SAID SHE DOES, WITHIN A MONTH, Original Note: SPINNING AND WINDING SUPERVISOR MONICA KNOX RETURNED TO FLOOR AND SPOKE WITH R' AND THIS NURSE. STATES SHE SPOKE WITH DR FRIEND AND WITH THE R' SYMPTOMS OF BRIGHT RED BLOOD AND NO PAIN, ITS MORE INDICATIVE OF A DIVERTICULAR BLEED. THEY ARE NOT GOING TO SCOPE HER TOMORROW. SHE STATED SHE TOLD R' SHE CAN F/U OUT-PT IN OFFICE IF NEEDED.
[2025-07-29] MEDS: 0.9 % NaCl (Sterile) Posiflush 10 mL IV (12:12)
--- NOTE | 2025-07-29 12:33 | NURSING ---
SCHEDULED APPT WITH DR OROZCO 08/20 AT 1300. WILL NOTIFY R' THAT SHE NEEDS TO GO.
[2025-07-29 13:34] LABS: Hematocrit 32.9 % (37-47); Hemoglobin 10.5 g/dL (12.0-15.0)
[2025-07-29] MEDS: 0.9% Saline Lock 10 ML Syringe IV (21:45)
--- NOTE | 2025-07-29 23:29 | NURSING ---
PICC to RUE removed per order 07/29/25 @ 2325. Internal length 43 cm, External length 2 cm, and total length 45 cm. Procedure preformed using sterile technique. Pt tolerated well. Total length removed 45 cm. Site reddened, no warmth or swelling observed to site. Per protocol, dressing placed over insertion site. Educated pt to leave dressing in place for at least 24 hours. Pt verbalized understanding of teaching. Pt declines need for further assistance.
[2025-07-30] MEDS: DAKIN'S SOL HALF STRENGTH (=0.25%) TOPICAL (05:18)
[2025-07-30 06:40] VITALS: PULSE 64; O2SAT 95
[2025-07-30 08:11] VITALS: BP 136/55; PULSE 66; RESP 16; TEMP 36.5; O2SAT 99
--- NOTE | 2025-07-30 08:13 | NURSING ---
Addendum entered by Carole Salas 07/30/25 08:48: Zee De La Torre stopped in to speak with pt, wants to speak with Dr Friend to see if he wants to do another scope since pt started rectal bleeding again this AM. Addendum entered by Carole Salas 07/30/25 08:20: spoke with gastro office, awaiting for return call. Original Note: pt reports that she started with rectal bleeding again this morning, states I get this gurgling feeling in stomach when it happens will call & update Dr Friend's office.
[2025-07-30] MEDS: Lactobacillis Acidophilus 1 CAP PO (08:24)
[2025-07-30 08:25] VITALS: PULSE 66
[2025-07-30] MEDS: Metoprolol(XL)Succ 25 MG Tablet 6.25 MG PO (08:25)
--- NOTE | 2025-07-30 09:59 | CASEMGMT ---
Social Work SW completed BIMS () and PHQ-2 () for MDS assessment. Katarina Bunch SPA DIRECTOR/FINANCE VACUUM CLEANER OPERATOR
--- NOTE | 2025-07-30 12:02 | PN.GI_ITS ---
Subjective Subjective - 2 episoes of rectal bleeding this morning - with sand like diarrhea - denies any pain - denies any melena or maroon stools - ate breakfast - she did take Amaryl and Plavix this am - plan for discharge today at 1400 - lives alone - denies nay nausea - denies any dizziness Objective Data Objective Data Vital Signs: Vital Signs Temp Pulse Resp BP Pulse Ox O2 Del Method 97.7 F L 66 16 136/55 H 99 Room Air 07/30/25 08:11 07/30/25 08:25 07/30/25 08:11 07/30/25 08:11 07/30/25 08:11 07/30/25 08:11 Oxygen Delivery Method Room Air Weight: 176 lb 4.8 oz Body Mass Index (BMI) 28.3 Intake & Output: Intake and Output for Last 24 Hours 07/28/25 07/29/25 07/30/25 23:59 23:59 23:59 Intake Total 1892.75 / 1892.75 840 / 840 360 / 360 Balance 1892.75 / 1892.75 840 / 840 360 / 360 Lab / Micro Data Attestation: I reviewed the patient's lab results. 07/29/25 12:55 07/29/25 07:52 Labs: Laboratory Results - last 24 hr 07/29/25 12:55: Hgb 10.5 L, Hct 32.9 L 07/29/25 16:40: POC Glucose 125 H 07/30/25 06:03: POC Glucose 103 Micro: Microbiology 07/27/25 10:55 Stool Stool Occult Blood (ERICA) - Final Occult Blood Positive 07/13/25 06:49 Nasal Secretion SARS-CoV-2 Antigen (Rapid) - Final 07/11/25 06:45 Nasal Secretion SARS-CoV-2 Antigen (Rapid) - Final 07/09/25 05:23 Nasal Secretion SARS-CoV-2 Antigen (Rapid) - Final 07/08/25 09:33 Stool Stool Occult Blood (ERICA) - Final Occult Blood Positive 06/16/25 20:50 Stool Stool Occult Blood (ERICA) - Final Occult Blood Positive 06/10/25 11:36 Blood Culture (Wb) - Anticubital Right Blood Culture - Final No growth in 5 days. 06/10/25 11:29 Blood Culture (Wb) - Anticubital Left Blood Culture - Final No growth in 5 days. 06/10/25 13:30 Wound Drainage - Aerobic & Anaerobic Swabs Gram Stain - Final 06/10/25 13:30 Wound Drainage - Aerobic & Anaerobic Swabs Wound Culture - Final Stenotrophomonas maltophilia Acinetobacter baumannii Meth. resistant Staph. aureus 06/10/25 13:30 Wound Drainage - Aerobic & Anaerobic Swabs Anaerobic Culture - Final No anaerobic bacteria isolated. 06/10/25 11:25 Urine Catheter - Catheter Urine Culture - Final Enterobacter asburiae 06/10/25 13:15 Stool C. difficile GDH Antigen & Toxins - Final Toxigenic C. difficile 06/10/25 13:15 Stool Clostridioides difficile (PCR) - Final 06/10/25 10:48 Mucosa - Nasopharyngeal Respiratory Panel (PCR) - Final 06/10/25 11:32 Nasal Secretion SARS-CoV-2 Antigen (Rapid) - Final 06/03/25 Unknown Stool Stool Occult Blood (ERICA) - Final Occult Blood Positive Physical Exam Narrative sitting up in chair at bedside Const no apparent distress and average body habitus Orientation / Consciousness: oriented to person, oriented to place and oriented to time Resp Effort and Inspection: able to speak in complete sentences and symmetric chest movement Assessment & Plan Assessment/Plan (1) Rectal bleeding: PLAN: Plan Contacted by [facility] bedside nurse this morning after patient had on episode of painless BRBPR with loose stool. Anticipated discharge for today at 1400. Patient is A&Ox3 and had a second episode of bleeding shortly after 9am. HGB 10.5 on 07/28/2025. I reviewed with Dr. Yanez and plan for discharge from TCU today at 1400. She will begin a clear liquid diet and will start bowel prep this evening at home. Plan to colonoscopy tomorrow +/- capsule endoscopy pending colonoscopy findings. I have reviewed with patient if she ?experiences increased rectal bleeding (especially large volume, frequent episodes, or passage of clots), severe abdominal pain, persistent lightheadedness, dizziness, or signs of dehydration such as dry mouth, reduced urine output, or confusion during bowel preparation she should come to the emergency department. Bowel prep sent to [facility] for patient to pick-up upon discharge today.
--- NOTE | 2025-07-30 14:08 | NURSING ---
pt left with instructions for colonoscopy scheduled tomorrow afternoon. pt off unit to retail pharmacy via WC at this time for bowel prep.
--- NOTE | 2025-07-30 14:14 | NURSING ---
reviewed dc instructions with son and pt at this time.
== END 2025-07-30 14:16 | disposition home health service (06) | DRG 949 ==
PROVIDERS: Internal Medicine Infectious Disease; Physician Assistant; Podiatrist Foot & Ankle Surgery; Admitting Provider Family Medicine Geriatric Medicine; PCP Student in an Organized Health Care Education/Training Program; Visit Provider Family Medicine Geriatric Medicine
DX: Z48.812 Encounter for surgical aftercare following surgery on the circulatory system (principal); K20.81 Other esophagitis with bleeding; K26.4 Chronic or unspecified duodenal ulcer with hemorrhage; K31.811 Angiodysplasia of stomach and duodenum with bleeding; K57.31 Diverticulosis of large intestine without perforation or abscess with bleeding; A04.72 Enterocolitis due to Clostridium difficile, not specified as recurrent; I82.B11 Acute embolism and thrombosis of right subclavian vein; K55.9 Vascular disorder of intestine, unspecified; M86.172 Other acute osteomyelitis, left ankle and foot; R78.81 Bacteremia; L03.116 Cellulitis of left lower limb; M86.672 Other chronic osteomyelitis, left ankle and foot; E11.22 Type 2 diabetes mellitus with diabetic chronic kidney disease; N18.30 Chronic kidney disease, stage 3 unspecified; D50.9 Iron deficiency anemia, unspecified; I12.9 Hypertensive chronic kidney disease with stage 1 through stage 4 chronic kidney disease, or unspecified chronic kidney disease; K25.9 Gastric ulcer, unspecified as acute or chronic, without hemorrhage or perforation; L97.522 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 foot with fat layer exposed; E11.65 Type 2 diabetes mellitus with hyperglycemia; E11.42 Type 2 diabetes mellitus with diabetic polyneuropathy; E11.51 Type 2 diabetes mellitus with diabetic peripheral angiopathy without gangrene; K30 Functional dyspepsia; I25.10 Atherosclerotic heart disease of native coronary artery without angina pectoris; E78.00 Pure hypercholesterolemia, unspecified; E87.6 Hypokalemia; E11.69 Type 2 diabetes mellitus with other specified complication; D12.0 Benign neoplasm of cecum; E11.621 Type 2 diabetes mellitus with foot ulcer; D63.8 Anemia in other chronic diseases classified elsewhere; L97.512 Non-pressure chronic ulcer of other part of right foot with fat layer exposed; K64.9 Unspecified hemorrhoids; B95.62 Methicillin resistant Staphylococcus aureus infection as the cause of diseases classified elsewhere; B35.4 Tinea corporis; Z79.02 Long term (current) use of antithrombotics/antiplatelets; Z79.899 Other long term (current) drug therapy; Z87.891 Personal history of nicotine dependence; Z79.82 Long term (current) use of aspirin; Z86.718 Personal history of other venous thrombosis and embolism; Z79.84 Long term (current) use of oral hypoglycemic drugs
CPT/HCPCS: 36415; 36430; 36569; 73030; 73610; 80048; 80053; 80202; 81001; 82274; 82565; 82962; 83036; 85014; 85018; 85025; 85652; 86140; 86850; 86900; 86901; 87040; 87070; 87075; 87077; 87086; 87088; 87186; 87205; 87493; 87633; 87811; 97110; 97112; 97116; 97162; 97166; 97530; 97535; 97802; J2997; P9016; A4216; J0295; J0696

== ENCOUNTER 2025-06-05 17:14 | Day surgery (SDC) | payer MEDICARE, SELFPAY ==
[2025-06-05] VITALS (7 sets, daily range): BP systolic 119–140; BP diastolic 48–54; PULSE 52–73; RESP 16–18; TEMP 36.3–36.7; O2SAT 98–100; BMI 26.1
--- NOTE | 2025-06-05 17:39 | HP.PCM_ITS ---
HPI - General General Date of Admission: 06/05/25 Date of Service: 06/05/25 Chief Complaint: Anemia HPI Narrative KIMBERLY NEWMAN, is a 75-year-old lady with past medical history signal for PAD with previous angioplasty, diabetes mellitus type 2,Recent debridement of surgical debridement of chronic bilateral lower extremity DFU's admitted with progressive generalized weakness she also has a history of bilateral lower extremity ulcerations and wounds in setting of severe peripheral vascular disease and diabetes. She had a skin graft done on 05 20. She developed peripheral vascular disease in her arteries and veins. She was seen by Dr. Russell Clement and underwent left femoral endarterectomy along with left [place] peroneal bypass with left sartorius flap on 05/26/2025. Since being in the TCU she has had a drop in her hemoglobin. She has baseline anemia chronic disease but she has been also having some abdominal pain. [facility] Medical History Anemia Other specified peripheral vascular diseases Non-pressure chronic ulcer of other part of right foot with fat layer exposed 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 foot with fat layer exposed Type 2 diabetes mellitus with foot ulcer 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 History of MRSA infection Pressure ulcer Ambulates with cane Shortness of breath on exertion History of edema History of echocardiogram Fall Atherosclerosis of [place] artery of both lower extremities with gangrene Chronic painful diabetic polyneuropathy MRSA (methicillin resistant staph aureus) culture positive Depression Diabetes Back pain Vertigo History of pain when walking Hypertension Arthritis Wears dentures Post-menopausal Low iron High cholesterol Easy bruising Neuropathy Dietary restriction Former smoker Cardiology follow-up encounter History of torn meniscus of left knee Carotid artery stenosis Essential hypertension Skin lesion Hammer toe of left foot Osteomyelitis Chronic kidney disease, stage 3 Atherosclerosis of coronary artery of [place] heart without angina pectoris Hyperlipidemia Peripheral vascular occlusive disease Hammer toe of second toe of left foot Hallux valgus (acquired), right foot Healed ulcer of left foot on examination Chronic ulcer of left foot with fat layer exposed Delayed wound healing Malnutrition Osteomyelitis of foot 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 Methicillin resistant Staphylococcus aureus infection Chronic osteomyelitis of left foot Non-healing ulcer of right foot DM2 (diabetes mellitus, type 2) Home Medications ?Medication ?Instructions ?Recorded ?Last Taken ?Type aspirin 81 mg tablet,delayed 81 mg PO QHS blood clots 01/13/14 05/31/25 20:15 History release multivitamin with folic acid 400 1 tab PO DAILY Supple ment 01/13/14 06/01/25 09:00 History mcg tablet omega-3 fatty acids-fish oil 340 1 ea PO DAILY supplem ent 06/29/16 08/27/16 History mg-1,000 mg capsule ferrous sulfate 325 mg (65 mg 325 mg PO DAILY SUPPLEME NT 08/15/18 06/01/25 12:50 History iron) tablet ascorbic acid (vitamin C) 500 mg 1,000 mg PO LUNCH Sup plement 11/25/20 06/01/25 12:50 History tablet calcium carbonate (Calcium 600) 600 mg PO DAILY supple ment 12/29/21 06/01/25 09 :00 History clopidogrel 75 mg tablet 75 mg PO DAILY Blood clots # 90 tabs 10/23/24 06/01/25 09:00 Rx Lactobacillus acidophilus 600 mg PO QDAY gi 03/07/25 0 06/01/25 09:00 History (Acidophilus capsule) pregabalin 100 mg capsule 100 mg PO TID nerve pain 06/01/25 12:50 History simvastatin 20 mg tablet 20 mg PO QHS cholesterol #30 tabs 03/23/25 05/31/25 20:15 Rx nystatin 100,000 unit/gram topical 1 applic topical BI D PRN rash 05/07/25 Unknown History powder ([facility]) acetaminophen 650 mg 650 mg PO Q12H PRN pain 04/20 Unknown History tablet,extended release amlodipine 5 mg tablet 5 mg PO DAILY HTN #90 tabs 0 05/12/25 06/01/25 09:00 Rx metoprolol succinate 25 mg 12.5 mg (1/2 x 25 mg) PO DA FABIAN 05/12/25 06/01/25 09:00 Rx tablet,extended release 24 hr HEART RATE #45 tabs glimepiride 2 mg tablet 2 mg PO BID Diabetes 5 Unknown History gabapentin (bulk) 100 % powder 2 ea topical BID Pain # 0 grams 05/28/25 06/01/25 09:00 Rx linezolid 600 mg tablet 600 mg PO BID Antibiotic #21 tabs 05/28/25 Unknown Rx menthol 0.44 %-zinc oxide 20.6 % 1 applic topical BID Skin 05/28/25 Unknown Rx topical ointment (Calmoseptine) Irritation #0 grams oxycodone 5 mg tablet 5 mg PO Q4H PRN PRN Pain Sco re 05/28/25 05/30/25 Rx 4-10 #0 tabs Allergy/AdvReac Type Severity Reaction Status Date / Time Sulfa (Sulfonamide Allergy Unknown Verified 05/22/25 11:05 Antibiotics) Family History Father CAD (coronary artery disease) Heart disease Hypertension CVA (cerebral vascular accident) Mother COPD (chronic obstructive pulmonary disease) Hypertension Heart disease Heart failure Surgical History History of cardiac catheterization History of colonoscopy History of foot surgery History of repair of left rotator cuff History of total left knee replacement (~2014) History of angioplasty of peripheral vessel (~2012) amputation left toe History of left heart catheterization (~01/20/14) Social History household members: none Smoking Status: Former smoker how long ago did patient quit smokin years ago alcohol intake: never substance use type: does not use caffeine: No ROS Constitutional Constitutional: Denies fatigue, fever(s), poor appetite, weight gain or weight loss Gastrointestinal Gastrointestinal: Denies belching, bloating, change in bowel habits, change in stool character, chewing difficulty, coffee ground emesis, constipation, cramping, diarrhea, dyspepsia, dysphagia, early satiety, excessive flatus, fecal incontinence, heartburn, hematemesis, hematochezia, hemorrhoids, loose stools, melena, nausea, odynophagia, rectal bleeding, tenesmus, vomiting or weight changes Assessment & Plan Assessment/Plan (1) Anemia: PLAN: Patient's hemoglobin went down to 7.8 and she received 1 unit packed red blood cells went up to 9.3. Since she needs to go on anticoagulation due to severe peripheral vascular disease and dual antiplatelet therapy. She should undergo an upper endoscopy evaluate upper GI tract.
[2025-06-05] MEDS: Lactated Ringers 1,000 ML 15 ML IV (17:47)
--- NOTE | 2025-06-05 18:18 | PCM.PRE.AN2 ---
ASA Classification* ASA Classification ASA Classification: 3 and E Assessment & Plan Anesthesia* Anesthesia Assessment Anesthesia Assessment: Discussed sedation and/or anesthesia options, risks, benefits, and alternatives with patient/parents/legal guardian/POA. Questions invited. The patient/parents/legal guardian/POA seems to understand and agrees to proceed with anesthesia plan. Reviewed the physical assessment, medical history, allergy history and patient home medications list prior to surgery/procedure/anesthetic and documented any changes. Performed airway and anesthesia risk assessments. Anesthesia Type Anesthesia Type: MAC History Source History Obtained from:: Patient and Chart Anesthesia Focused Assessment* Temperature: 98.1 F Pulse Rate: 52 Blood Pressure: 124/48 Respiratory Rate: 18 Pulse Ox: 98 Oxygen Delivery Method: Room Air Airway Assessment Mouth opens: >3 cm Mallampati Score: III Teeth Condition: Dentures (Top and bottom dentures are out.) Neck Range of motion (ROM): Limited ROM (Slight decrease in extension) Labs Anesthesia Preop lab: CBC WBC 3.8 K/mm3 (4.4-11.0) L 06/02/25 05:27 06/02/25 RBC 2.66 M/mm3 (4.2-5.4) L 06/02/25 05:27 06/02/25 Hgb 9.3 g/dL (12.0-15.0) L 06/03/25 15:51 06/03/25 Hct 28.0 % (37-47) L 06/03/25 15:51 06/03/25 Plt Count 109 K/mm3 (150-450) L 06/02/25 05:27 06/02/25 CHEMISTRY Potassium 4.5 mmol/L (3.3-5.1) 06/02/25 05:27 06/02/25 Sodium 137 mmol/L (133-145) 06/02/25 05:27 06/02/25 Magnesium 1.8 mg/dL (1.5-2.2) 06/01/25 10:07 06/01/25 Phosphorus 3.5 mg/dL (2.7-4.5) 06/01/25 10:07 06/01/25 BUN 76 mg/dL (4-19) H 06/02/25 05:27 06/02/25 Creatinine 1.22 mg/dL (0.70-1.20) H 06/02/25 05:27 06/02/25 Glucose 181 mg/dL (70-99) H 06/02/25 05:27 06/02/25 POC Glucose 108 mg/dL (74-106) H 06/05/25 17:45 06/05/25 TSH < 0.01 uIU/mL (0.358-3.74) L 02/07/17 09:38 02/07/17 COAG PT 14.5 SECONDS (11.7-14.9) 05/27/25 03:05 05/27/25 Pre-Assessment Diagnosis/Proposed Procedure Planned Operative Procedure(s): EGD Anesthesia History Anesthesia History - labor relations worker: Anesthesia History - labor relations worker Hx Hospitalization Yes: 02/2025 FELL 05/08/25 10:01 Any Problems With Anesthesia No 05/25/25 21:37 Cholinesterase deficiency No 05/25/25 21:37 You/Your Family Experience No 05/25/25 21:37 fever (hyperthermia) with Relationship Recent Exposure to Contagious No 06/05/25 17:32 Disease Does patient have nerve No 05/25/25 21:37 stimulator Patient instructed to have device shut off --Does patient have Pacemaker No 06/05/25 17:32 or ICD? When Was Last Pacemaker Check QUESTION #4 FULL TEXT: You/Your Family Experience fever (hyperthermia) with Anesthesia Last Oral Intake Last Oral intake: Last Oral Intake NPO since 18:30 06/05/25 17:32 Meds taken in AM with sips of Yes 06/05/25 17:32 water? Meds patient instructed to take am of surgery Any additional information?: Yes Meds taken in AM with sips of water?: Yes PONV PONV - labor relations worker: PONV - labor relations worker Female HX of Motion Sickness HX of N/V After Surgery Non-Smoker Duration of Surgery greater than 60 minutes Number of Risk Factors PONV Score Height & Weight Height & Weight: Anesthesia: Height & Weight Height 5 ft 6 in 06/05/25 17:32 Weight: 73.457 kg 06/05/25 17:32 Body Mass Index (BMI) 26.1 06/05/25 17:32 Respiratory Assessment Respiratory Assessment - labor relations worker: Respiratory Tract Infection Hx - labor relations worker Hx Respiratory Tract Infection No 05/25/25 21:37 STOP Sleep Apnea STOP Sleep Apnea - labor relations worker: STOP Sleep Apnea - labor relations worker Hx Hypertension Yes 06/02/25 11:36 Hx Sleep Apnea No 06/01/25 18:32 CPAP No 05/26/25 14:34 BIPAP No 05/22/25 14:40 Do you snore loudly (louder than talking or can be heard Do you often feel tired/ fatigued/ sleepy during daytime? Has anyone observed you stop breathing during sleep? STOP Results QUESTION #5 FULL TEXT : Do you snore loudly (louder than talking or can be heard through closed doors)? 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 Use History - labor relations worker: Tobacco Use History - labor relations worker Tobacco Use Cigarettes 04/02/24 09:13 Smoking Status Former smoker 06/01/25 18:32 Hx Tobacco Use No 06/01/25 18:32 Years Smoking Packs Smoked per Day Smoking Cessation Date was within the last 15 years Hx Smoking Cessation Date Hx Smoking Cessation No 06/01/25 18:32 Counseling Hematologic Medial History Hematologic Hx - labor relations worker: Hematologic Medical Hx - education program coordinator Hx of Blood Transfusion Hx of Transfusion in last 3 Months Date of Last Transfusion (if within last 3 months) Ever experience any problems with transfusion(s)? Specify any problems Hx of Preganancy in last 3 Months Nurse Filling Out Transfusion & Questions: Date: Time: Patient unable to answer at this time (ie. confused, unrespo /Reproduction History /Reproductive History - labor relations worker: /Reproductive Hx- labor relations worker Hx Now Gestational Age (in weeks): EDC: Hx Hx Para Hx Section SAB No 05/25/25 21:37 Active Medications Active Medications: Current Medications Generic Name Dose Route Start Last Admin Trade Name Freq PRN Reason Stop Dose Admin Lactated Ringer's 1,000 mls @ 15 mls/hr 06/05/25 17:30 06/05/25 17:47 IV 15 mls/hr .Q48H HADLEY Administration PFSH Medical History Anemia Other specified peripheral vascular diseases Non-pressure chronic ulcer of other part of right foot with fat layer exposed 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 foot with fat layer exposed Type 2 diabetes mellitus with foot ulcer 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 History of MRSA infection Pressure ulcer Ambulates with cane Shortness of breath on exertion History of edema History of echocardiogram Fall Atherosclerosis of [place] artery of both lower extremities with gangrene Chronic painful diabetic polyneuropathy MRSA (methicillin resistant staph aureus) culture positive Depression Diabetes Back pain Vertigo History of pain when walking Hypertension Arthritis Wears dentures Post-menopausal Low iron High cholesterol Easy bruising Neuropathy Dietary restriction Former smoker Cardiology follow-up encounter History of torn meniscus of left knee Carotid artery stenosis Essential hypertension Skin lesion Hammer toe of left foot Osteomyelitis Chronic kidney disease, stage 3 Atherosclerosis of coronary artery of [place] heart without angina pectoris Hyperlipidemia Peripheral vascular occlusive disease Hammer toe of second toe of left foot Hallux valgus (acquired), right foot Healed ulcer of left foot on examination Chronic ulcer of left foot with fat layer exposed Delayed wound healing Malnutrition Osteomyelitis of foot 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 Methicillin resistant Staphylococcus aureus infection Chronic osteomyelitis of left foot Non-healing ulcer of right foot DM2 (diabetes mellitus, type 2) Home Medications ?Medication ?Instructions ?Recorded ?Last Taken ?Type aspirin 81 mg tablet,delayed 81 mg PO QHS blood clots 01/13/14 05/31/25 20:15 History release multivitamin with folic acid 400 1 tab PO DAILY Supplement 01/13/14 06/01/25 09:00 History mcg tablet omega-3 fatty acids-fish oil 340 1 ea PO DAILY supplement 06/29/16 08/27/16 History mg-1,000 mg capsule ferrous sulfate 325 mg (65 mg 325 mg PO DAILY SUPPLEMENT 08/15/18 06/01/25 12:50 History iron) tablet ascorbic acid (vitamin C) 500 mg 1,000 mg PO LUNCH Supplement 11/25/20 06/01/25 12:50 History tablet calcium carbonate (Calcium 600) 600 mg PO DAILY supplement 12/29/21 06/01/25 09:00 History clopidogrel 75 mg tablet 75 mg PO DAILY Blood clots #90 tabs 10/23/24 06/01/25 09:00 Rx Lactobacillus acidophilus 600 mg PO QDAY gi 03/07/25 06/01/25 09:00 History (Acidophilus capsule) pregabalin 100 mg capsule 100 mg PO TID nerve pain 03/07/25 06/01/25 12:50 History simvastatin 20 mg tablet 20 mg PO QHS cholesterol #30 tabs 03/23/25 05/31/25 20:15 Rx nystatin 100,000 unit/gram topical 1 applic topical BID PRN rash 05/07/25 Unknown History powder ([facility]) acetaminophen 650 mg 650 mg PO Q12H PRN pain 05/08/25 Unknown History tablet,extended release amlodipine 5 mg tablet 5 mg PO DAILY HTN #90 tabs 05/12/25 06/01/25 09:00 Rx metoprolol succinate 25 mg 12.5 mg (1/2 x 25 mg) PO DAILY 05/12/25 06/01/25 09:00 Rx tablet,extended release 24 hr HEART RATE #45 tabs glimepiride 2 mg tablet 2 mg PO BID Diabetes 05/18/25 Unknown History gabapentin (bulk) 100 % powder 2 ea topical BID Pain #0 grams 05/28/25 06/01/25 09:00 Rx linezolid 600 mg tablet 600 mg PO BID Antibiotic #21 tabs 05/28/25 Unknown Rx menthol 0.44 %-zinc oxide 20.6 % 1 applic topical BID Skin 05/28/25 Unknown Rx topical ointment (Calmoseptine) Irritation #0 grams oxycodone 5 mg tablet 5 mg PO Q4H PRN PRN Pain Score 05/28/25 05/30/25 Rx 4-10 #0 tabs Allergy/AdvReac Type Severity Reaction Status Date / Time Sulfa (Sulfonamide Allergy Unknown Verified 05/22/25 11:05 Antibiotics) Family History Father CAD (coronary artery disease) Heart disease Hypertension CVA (cerebral vascular accident) Mother COPD (chronic obstructive pulmonary disease) Hypertension Heart disease Heart failure Surgical History History of cardiac catheterization History of colonoscopy History of foot surgery History of repair of left rotator cuff History of total left knee replacement (~2014) History of angioplasty of peripheral vessel (~2012) amputation left toe History of left heart catheterization (~01/20/14) Social History household members: none Smoking Status: Former smoker how long ago did patient quit smokin years ago alcohol intake: never substance use type: does not use caffeine: No Review of Systems (Anesthesia) ROS Narrative System reviewed and no additional complaints, except as documented.
--- NOTE | 2025-06-05 18:30 | EGD_PTH ---
PATIENT: KIMBERLY NEWMAN LOC: EN U#:[id number] AGE/SX: 75/F ROOM: RE06/05/[address]: Dr. Ortega Yanez DO : 1950 BED: DIS: 06/05/2025 SPEC #: [id number] RECD: 06/08/25 10:01 STATUS: DALJIT ARJUN #: [id number] MARIELLE: 06/05/25 18:[address]: Ortega Yanez DEPT: SURGICAL PATHOLOGY RECD BY: Rei Wagner ENTERED: 06/08/25 14:30 SP TYPE: EGD BIOPSY RYLEE DR: Dr. Rishi Vasquez DO Tissues: A - Gastric mucous membrane Procedures: Surgery Specimen Level IV HEADER OPERATION: EGD, biopsy, electrohemostasis PRE-OP DIAGNOSIS: Anemia TISSUE SUBMITTED: A- Gastric body biopsy MICROSCOPIC DIAGNOSIS A. Gastric body, biopsy: * Unremarkable gastric mucosa. * Negative for h. pylori on routine stains. MICROSCOPIC DESCRIPTION Slides are reviewed. GROSS DESCRIPTION A. Received in fixative is one container labeled with the patient's name and designated Gastric body biopsy. The specimen consists of one irregular fragment of light weiss soft tissue that measures 0.8 cm. The specimen is totally submitted in one cassette. 06/08/2025 CPT:07011
--- NOTE | 2025-06-05 18:45 | OP.EGD_ITS ---
Patient Name: Gely Fuller Procedure Date: 06/05/2025 6:12 PM Date of : 1950 Age: 75 Procedure: Upper GI endoscopy Indications: Epigastric abdominal pain, Acute post hemorrhagic anemia, Iron deficiency anemia secondary to chronic blood loss, Iron deficiency anemia, Melena, Suspected upper gastrointestinal bleeding Providers: Ortega Yanez DO Medicines: Monitored Anesthesia Care Patient Profile: This is a 75 year old female. Refer to note in patient chart for documentation of history and physical. Patient has symptoms of acute abdominal cramping, acute epigastric abdominal pain, acute dyspepsia and acute nausea. Complications: No immediate complications. Procedure: Pre-Anesthesia Assessment: - Prior to the procedure, a History and Physical was performed, and patient medications and allergies were reviewed. The patient is competent. The risks and benefits of the procedure and the sedation options and risks were discussed with the patient. All questions were answered and informed consent was obtained. Patient identification and proposed procedure were verified by the physician in the pre-procedure area. Mental Status Examination: alert and oriented. Airway Examination: normal oropharyngeal airway and neck mobility. Respiratory Examination: clear to auscultation. CV Examination: normal. Prophylactic Antibiotics: The patient does not require prophylactic antibiotics. Prior Anticoagulants: The patient has taken no anticoagulant or antiplatelet agents except for NSAID medication. ASA Grade Assessment: II - A patient with mild systemic disease. After reviewing the risks and benefits, the patient was deemed in satisfactory condition to undergo the procedure. The anesthesia plan was to use monitored anesthesia care (MAC). Immediately prior to administration of medications, the patient was re-assessed for adequacy to receive sedatives. The heart rate, respiratory rate, oxygen saturations, blood pressure, adequacy of pulmonary ventilation, and response to care were monitored throughout the procedure. The physical status of the patient was re-assessed after the procedure. After obtaining informed consent, the endoscope was passed under direct vision. Throughout the procedure, the patient's blood pressure, pulse, and oxygen saturations were monitored continuously. The Endoscope was introduced through the mouth, and advanced to the fourth part of the duodenum. Small bowel enteroscopy was deemed necessary. The upper GI endoscopy was accomplished without difficulty. The patient tolerated the procedure well. Scope In: 6:33:51 PM Scope Out: 6:38:47 PM Total Procedure Duration Time 0 hours 4 minutes 56 seconds Findings: LA Grade D (one or more mucosal breaks involving at least 75% of esophageal circumference) esophagitis with bleeding was found 34 to 43 cm from the incisors. Coagulation for hemostasis using heater probe was successful. Estimated blood loss was minimal. Few non-bleeding linear gastric ulcers with no stigmata of bleeding were found in the gastric body. The largest lesion was 6 mm in largest dimension. Biopsies were taken with a cold forceps for histology. Verification of patient identification for the specimen was done. Estimated blood loss was minimal. Biopsies were taken with a cold forceps for Helicobacter pylori testing. Verification of patient identification for the specimen was done. Estimated blood loss was minimal. Three oozing cratered duodenal ulcers with a visible vessel were found in the duodenal bulb. The largest lesion was 21 mm in largest dimension. Coagulation for hemostasis using heater probe was successful. Estimated blood loss: none. Two 5 mm angiodysplastic lesions without bleeding were found in the third portion of the duodenum. Coagulation for destruction of remaining portion of lesion using heater probe was successful. Impression: - LA Grade D erosive esophagitis with bleeding. Treated with a heater probe. - Non-bleeding gastric ulcers with no stigmata of bleeding. Biopsied. - Oozing duodenal ulcers with a visible vessel. Treated with a heater probe. - Two non-bleeding angiodysplastic lesions in the duodenum. Treated with a heater probe. Recommendation: - Return patient to referring hospital. - Use Protonix (pantoprazole) 40 mg PO BID for 3 months. - Use sucralfate tablets 1 gram PO BID for 1 month. - Continue present medications. Procedure Code(s): --- Professional --- 54934, 59, Small intestinal endoscopy, enteroscopy beyond second portion of duodenum, not including ileum; with control of bleeding (eg, injection, bipolar cautery, unipolar cautery, laser, heater probe, stapler, plasma telegraph dispatcher) 85317, 51, Small intestinal endoscopy, enteroscopy beyond second portion of duodenum, not including ileum; with biopsy, single or multiple CPT copyright 2021 [employer]. All rights reserved. The codes documented in this report are preliminary and upon salesperson shoes review may be revised to meet current compliance requirements. Ortega Yanez DO 06/05/2025 6:45:12 PM This report has been signed electronically. Number of Addenda: 0 Note Initiated On: 06/05/2025 6:12 PM
--- NOTE | 2025-06-05 18:46 | OP.CCLET_ITS ---
06/05/2025 Rishi Vasquez [address] [place] [address] Re : Upper GI endoscopy procedure for Gely Fuller Dear Dr. Vasquez This procedure was performed on Thursday, June 05, 2025. My impressions and recommendations are as follows: Impressions : - LA Grade D erosive esophagitis with bleeding. Treated with a heater probe. - Non-bleeding gastric ulcers with no stigmata of bleeding. Biopsied. - Oozing duodenal ulcers with a visible vessel. Treated with a heater probe. - Two non-bleeding angiodysplastic lesions in the duodenum. Treated with a heater probe. Recommendations : - Return patient to referring hospital. - Use Protonix (pantoprazole) 40 mg PO BID for 3 months. - Use sucralfate tablets 1 gram PO BID for 1 month. - Continue present medications. My findings are described in the full procedure note, which is enclosed. If I can be of further assistance, please feel free to contact me at . Sincerely, Ortega Yanez, 06/05/2025 6:45:12 PM This report has been signed electronically.
--- NOTE | 2025-06-05 18:48 | PCM.POST.ANE ---
Anesthesia: Postop Eval I Current Vital Signs Temperature: 97.4 F Pulse Rate: 61 Blood Pressure: 119/54 Respiratory Rate: 16 Pulse Ox: 100 Oxygen Delivery Method: Room Air Assessment Airway patent: Yes Spontaneous unlabored respirations: Yes Mental status: Awake and Calm nausea: No Vomiting: No Anesthesia Complication: No Fluid Hydration Crystalloid volume administer (ml): 250 Total IV fluid infused: 250 Progress Note Anesthesia document: Postop Eval 1 completed: Yes
--- NOTE | 2025-06-05 19:18 | PCM.POSTANE2 ---
Anesthesia Postop Eval I Sum Postop Eval Completion status Anesthesia document: Postop Eval 1 completed: Yes Anesthesia Postop Eval I Summary Anesthesia Postop Eval I Summary: Anesthesia Postop Eval I: Assessment Summary Airway patent Yes 06/05/25 18:50 Spontaneous unlabored Yes 06/05/25 18:50 respirations Mental status Awake,Calm 06/05/25 18:50 nausea No 06/05/25 18:50 Vomiting No 06/05/25 18:50 Anesthesia Postop Eval I: Fluid Summary Crystalloid volume administer 250 06/05/25 18:50 (ml) Colloids volume administered ( ml) Blood Product volume administered (ml) Total IV fluid infused 250 06/05/25 18:50 Anesthesia Postop Eval I: Summary Notes Anesthesia Complication No 06/05/25 18:50 Anesthesia Complication Comment: Post-operative progress note Anesthesia: Postop Eval II Evaluation Mental status: Awake and Calm Pain Level: 0 nausea: No Vomiting: No Complications Anesthesia Complication: No
== END 2025-06-05 19:23 | disposition home or self-care (01) ==
LOC: EN 17:15 → ACINP 17:15
PROVIDERS: PCP Student in an Organized Health Care Education/Training Program; Referring Provider Student in an Organized Health Care Education/Training Program; Visit Provider Internal Medicine Gastroenterology
PROC: 0DJ08ZZ Inspection of Upper Intestinal Tract, Via Natural or Artificial Opening Endoscopic (ICD-10-PCS; CPT 43235; principal; 2025-06-05 18:25)
DX: K22.11 Ulcer of esophagus with bleeding (principal); E11.22 Type 2 diabetes mellitus with diabetic chronic kidney disease; E11.42 Type 2 diabetes mellitus with diabetic polyneuropathy; N18.30 Chronic kidney disease, stage 3 unspecified; E78.00 Pure hypercholesterolemia, unspecified; I12.9 Hypertensive chronic kidney disease with stage 1 through stage 4 chronic kidney disease, or unspecified chronic kidney disease; Z87.891 Personal history of nicotine dependence; I73.9 Peripheral vascular disease, unspecified; K26.9 Duodenal ulcer, unspecified as acute or chronic, without hemorrhage or perforation; Z79.02 Long term (current) use of antithrombotics/antiplatelets; K25.9 Gastric ulcer, unspecified as acute or chronic, without hemorrhage or perforation; Z79.899 Other long term (current) drug therapy; I25.10 Atherosclerotic heart disease of native coronary artery without angina pectoris; D50.0 Iron deficiency anemia secondary to blood loss (chronic); K31.819 Angiodysplasia of stomach and duodenum without bleeding
CPT/HCPCS: 44366; 44361; 82962; 88305; C1889; J2405

== ENCOUNTER 2025-06-11 08:43 | Emergency (ER) | payer MEDICARE, SELFPAY ==
[2025-06-11] VITALS (8 sets, daily range): BP systolic 94–117; BP diastolic 38–50; PULSE 48–60; RESP 11–18; TEMP 36.7–37.1; O2SAT 94–100; BMI 27.6
[2025-06-11 09:22] LABS: Hematocrit 23.5 % (37-47); Hemoglobin 7.6 g/dL (12.0-15.0); Immature Granulocytes Count 0.030 X10^3/uL (0.0-0.0); Mean Corp Hgb Conc 32.3 g/dL (32-36); Mean Corpuscular Volume 90.4 fL (81-99); Mean Platelet Vol. 11.4 fl (6.2-12.0); NRBC Flagged by Analyzer 0 % (0-5); Platelet Count 167 K/mm3 (150-450); RBC Distribution Width CV 15.2 % (11.6-14.6); RBC Distribution Width SD 50.3 fl (35.1-43.9); Red Blood Count 2.60 M/mm3 (4.2-5.4); White Blood Count 7.0 K/mm3 (4.4-11.0)
--- NOTE | 2025-06-11 09:32 | RAD_ITS ---
PROCEDURE: CHEST PA AND LATERAL 06/11/2025 REASON FOR EXAM: FEVER, COUGH TECHNIQUE: CHEST PA AND LATERAL COMPARISON: May 17, 2025 FINDINGS: There is a central access catheter on the right with its tip centrally located in the superior vena cava. Heart size and mediastinal configuration are within normal limits. There is minimal atelectasis or scar at the right lung base. There is no pneumothorax or effusion. There is no acute bony abnormality. Aortic calcifications are visible. RAD/Chest PA and Lateral IMPRESSION: There is a central access catheter on the right with its tip centrally located in the superior vena cava. There is minimal atelectasis or scar at the right lung base. Reading Location: [id number]
[2025-06-11] MEDS: 0.9% Normal Saline (1000mL) 1,000 ML 1000 ML IV (09:42)
--- NOTE | 2025-06-11 09:54 | EX.ED.DYSGE1 ---
HPI History of Present Illness Chief Complaint: General Illness Informant: patient and SNF Narrative Narrative: Patient is a 75-year-old female presenting from TCU for concern of possible sepsis and continued fever. Patient is in the TCU for diabetic foot wound. She had a relatively protracted hospitalization with bilateral lower extremity ulceration and wounds in the setting of severe peripheral vascular disease and diabetes. Had skin grafting done on 05/20 with podiatry. Was seen by vascular surgery and had a left femoral endarterectomy with left femoral peroneal bypass on 05/26/2025. Hospital course was complicated by anemia and she did require 2 units of packed red blood cells. She was discharged on 06/01 to the TCU. Yesterday (06/10) she developed fever, generalized malaise and was also having diarrhea. She tested positive for C. difficile and urinalysis obtained was consistent with infection. Blood cultures and wound cultures also collected. She was evaluated by podiatry (Dr. Sinha) and infectious disease. She was started on IV vancomycin, Rocephin and Flagyl via PICC line. Has been started on oral vancomycin for C. difficile. This morning she reportedly looked poorly, had recurrent fever (100.2) and was hypotensive. She is sent to the ER for further evaluation and concern for sepsis. Patient states she actually feels better today. She denies any acute complaints. She is not aware of having a fever this morning. She did not receive any antipyretics prior to arrival. 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 Chronic painful diabetic polyneuropathy MRSA (methicillin resistant staph aureus) culture positive Depression Diabetes Back pain Vertigo History of pain when walking Hypertension Arthritis Wears dentures Post-menopausal Low iron High cholesterol Easy bruising Neuropathy Dietary restriction Former smoker Cardiology follow-up encounter History of torn meniscus of left knee Carotid artery stenosis Essential hypertension Skin lesion Hammer toe of left foot Osteomyelitis Chronic kidney disease, stage 3 Atherosclerosis of coronary artery of [place] heart without angina pectoris Hyperlipidemia Peripheral vascular occlusive disease Hammer toe of second toe of left foot Hallux valgus (acquired), right foot Healed ulcer of left foot on examination Chronic ulcer of left foot with fat layer exposed Delayed wound healing Malnutrition Osteomyelitis of foot 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 Methicillin resistant Staphylococcus aureus infection Chronic osteomyelitis of left foot Non-healing ulcer of right foot DM2 (diabetes mellitus, type 2) Home Medications Medication Instructions Recorded Last Taken Type aspirin 81 mg tablet,delayed 81 mg PO QHS blood clots 01/13/14 05/31/25 20:15 History release multivitamin with folic acid 400 1 tab PO DAILY Supplement 01/13/14 06/01/25 09:00 History mcg tablet omega-3 fatty acids-fish oil 340 1 ea PO DAILY supplement 06/29/16 08/27/16 History mg-1,000 mg capsule ferrous sulfate 325 mg (65 mg 325 mg PO DAILY SUPPLEMENT 08/15/18 06/10/25 History iron) tablet ascorbic acid (vitamin C) 500 mg 1,000 mg PO LUNCH Supplement 11/25/20 06/01/25 12:50 History tablet calcium carbonate (Calcium 600) 600 mg PO DAILY supplement 12/29/21 06/01/25 09:00 History clopidogrel 75 mg tablet 75 mg PO DAILY Blood clots #90 tabs 10/23/24 06/01/25 09:00 Rx Lactobacillus acidophilus 600 mg PO QDAY gi 03/07/25 06/01/25 09:00 History (Acidophilus capsule) pregabalin 100 mg capsule 100 mg PO TID nerve pain 03/07/25 06/01/25 12:50 History simvastatin 20 mg tablet 20 mg PO QHS cholesterol #30 tabs 03/23/25 05/31/25 20:15 Rx nystatin 100,000 unit/gram topical 1 applic topical BID PRN rash 05/07/25 Unknown History powder (Nyamyc) acetaminophen 650 mg 650 mg PO Q12H PRN pain 05/08/25 Unknown History tablet,extended release amlodipine 5 mg tablet 5 mg PO DAILY HTN #90 tabs 05/12/25 06/01/25 09:00 Rx metoprolol succinate 25 mg 12.5 mg (1/2 x 25 mg) PO DAILY 05/12/25 06/01/25 09:00 Rx tablet,extended release 24 hr HEART RATE #45 tabs glimepiride 2 mg tablet 2 mg PO BID Diabetes 05/18/25 Unknown History gabapentin (bulk) 100 % powder 2 ea topical BID Pain #0 grams 05/28/25 06/01/25 09:00 Rx linezolid 600 mg tablet 600 mg PO BID Antibiotic #21 tabs 05/28/25 Unknown Rx menthol 0.44 %-zinc oxide 20.6 % 1 applic topical BID Skin 05/28/25 Unknown Rx topical ointment (Calmoseptine) Irritation #0 grams oxycodone 5 mg tablet 5 mg PO Q4H PRN PRN Pain Score 05/28/25 05/30/25 Rx 4-10 #0 tabs Allergy/AdvReac Type Severity Reaction Status Date / Time Sulfa (Sulfonamide Allergy Unknown Verified 06/09/25 09:34 Antibiotics) Family History Father CAD (coronary artery disease) Heart disease Hypertension CVA (cerebral vascular accident) Mother COPD (chronic obstructive pulmonary disease) Hypertension Heart disease Heart failure Surgical History History of cardiac catheterization History of colonoscopy History of foot surgery History of repair of left rotator cuff History of total left knee replacement (~2014) History of angioplasty of peripheral vessel (~2012) amputation left toe History of left heart catheterization (~01/20/14) Social History household members: none Smoking Status: Former smoker how long ago did patient quit smokin years ago alcohol intake: never substance use type: does not use caffeine: No ROS ROS ED Constitutional Constitutional ED: Reports chills and fever(s) Eyes Eyes: Denies blurry vision Cardiovascular Cardiovascular: Denies chest pain Respiratory/Chest Respiratory/Chest: Denies cough or dyspnea Gastrointestinal Gastrointestinal: Reports diarrhea; Denies abdominal pain, nausea or vomiting Musculoskeletal Musculoskeletal: Reports myalgias and other Details: Chronic bilateral foot pain, no acute change Integumentary Denies rash Neurologic Neurologic: Reports weakness Hematologic/Lymphatic Hematologic/Lymphatic: Denies easy bleeding or easy bruising EXAM Physical Exam Const Vital Signs: 06/11/25 08:47 06/11/25 08:58 06/11/25 09:51 Temperature 98.4 F 98.6 F Temperature Source Oral Oral Pulse Rate 50 L 57 L Respiratory Rate 18 16 Respiratory Effort Normal Respiratory Pattern Normal Blood Pressure 104/43 L 102/38 L Blood Pressure Mean 63 59 Pulse Ox 95 99 Oxygen Delivery Method Room Air Room Air 06/11/25 10:43 06/11/25 11:00 06/11/25 12:00 Temperature 98.1 F 98.6 F Temperature Source Oral Oral Pulse Rate 58 L 52 L 56 L Respiratory Rate 16 15 18 Respiratory Effort Respiratory Pattern Blood Pressure 94/50 L 99/42 L 99/38 L Blood Pressure Mean 64 61 58 Pulse Ox 100 99 99 Oxygen Delivery Method Room Air Room Air Room Air 06/11/25 13:00 06/11/25 14:11 Temperature 98.8 F 98.7 F Temperature Source Oral Temporal Pulse Rate 60 54 L Respiratory Rate 18 11 L Respiratory Effort Respiratory Pattern Blood Pressure 113/48 L 117/50 L Blood Pressure Mean 69 72 Pulse Ox 100 94 Oxygen Delivery Method Room Air Room Air Positive well nourished and well developed General Appearance ED: well developed and NAD; Negative for pallor HEENT Reports dry mucous membranes Mouth ED: Yes dry mucous membranes Mouth: dry mucous membranes Eyes PERRL Neck supple and no JVD Chest Wall inspection of chest normal and palpation of chest normal Resp normal respiratory effort and clear to auscultation bilaterally Cardio regular rate, regular rhythm and no murmurs GI normal to inspection, nondistended, normoactive bowel sounds and non-tender Extremity Extremity Narrative: Brace on the left lower extremity. [place] wrap's on the bilateral extremities are clean and dry. Neuro oriented x3 Sensorium / Orientation: alert Motor Exam: general weakness Psych mental status grossly normal Skin General Skin Exam: Negative for pallor MDM MDM MDM Narrative Medical decision making narrative: Patient evaluated for concern of sepsis. Was evaluated for fever yesterday in the TCU by PCP, podiatry and infectious disease. PICC line was placed and was started on IV antibiotics. This morning she had soft blood pressures and was quite ill-appearing per my conversation with Dr. Al. As patient had cultures yesterday do not think these need to be repeated. She had a urinalysis consistent with infection as well. Will check CBC, CMP and lactate. Patient actually is pretty well-appearing in the ER. On exam she states that she is actually feeling better today. Her blood pressure is soft in the emergency room. She is given a total of 2 L of IV fluid with significant improvement of her blood pressure. Her CBC shows anemia with a hemoglobin of 7.6 however this appears more chronic. Do not think she requires an emergent blood transfusion. She is not have any active signs of bleeding and I suspect her anemia is associated with her wounds on her leg and acute illness. Her CMP shows baseline elevation of her creatinine and hypokalemia but otherwise largely normal. Lactate is normal. Low suspicion for severe sepsis or shock. Chest x-ray viewed by myself as well as radiology does not show any acute infectious etiology. Patient is given IV and oral potassium in the emergency room. As patient is fluid response. She is monitored after fluids and her blood pressure continues to remain normal. Suspect she had a component of intravascular depletion associated with her diarrhea and recent C. difficile. Discussed the case with Dr. Al and he states that if she has stable vital signs and seems to be doing better can be discharged back to TCU on her IV antibiotics. I think this is a reasonable plan of care. Do not think she requires repeat admission at this time. Lab Data Attestation: I reviewed the patient's lab results. Labs: Laboratory Results - last 24 hr 06/11/25 09:10 WBC 7.0 RBC 2.60 L Hgb 7.6 L Hct 23.5 L MCV 90.4 MCH 29.2 MCHC 32.3 RDW Std Deviation 50.3 H RDW Coeff of [place] 15.2 H Plt Count 167 MPV 11.4 Immature Gran % (Auto) 0.400 Neut % (Auto) 67.7 Lymph % (Auto) 14.9 L [place] % (Auto) 14.7 H Eos % (Auto) 1.7 Baso % (Auto) 0.6 Absolute Neuts (auto) 4.7 Absolute Lymphs (auto) 1.04 Nucleated RBC % 0 Sodium 139 Potassium 3.0 L Chloride 108 Carbon Dioxide 21.2 Anion Gap 9 BUN 53 H Creatinine 1.32 H Estim Creat Clear Calc 39.90 L Est GFR (MDRD) Non-Af 43 L BUN/Creatinine Ratio 40.1 H Glucose 58 L Lactic Acid < 1.0 Calcium 8.2 Magnesium 1.8 Total Bilirubin 0.25 AST 19 ALT 10 Alkaline Phosphatase 49 Total Protein 4.7 L Albumin 2.4 L Globulin 2.3 Albumin/Globulin Ratio 1.0 Radiography Chest X-Ray - ED: 2 View, Read by ED Physician, Read by Radiologist and No Acute Disease Diagnostic Testing: Clinical Impression(s) from Imaging Studies Chest X-Ray 06/11/25 09:32 IMPRESSION: There is a central access catheter on the right with its tip centrally located in the superior vena cava. There is minimal atelectasis or scar at the right lung base. Reading Location: [facility] Management Discussion w/another healthcare provider: PCP Discharge Plan Triage Chief Complaint: General Illness ED Provider: Shahnaz Bishop Dx/Rx/DC Orders Clinical Impression: Hypotension, UTI (urinary tract infection), bacterial, Acute hypokalemia, Dehydration, Chronic osteomyelitis of left foot, CKD (chronic kidney disease), Chronic anemia Instructions: ED Dehydration (Adult), ED Hypokalemia Prescriptions: No Action calcium carbonate [Calcium 600] 600 mg calcium (1,500 mg) tablet 600 mg PO DAILY nystatin [Nyamyc] 100,000 unit/gram powder 1 applic topical BID PRN (Reason: rash) Protocol: *Topical Application Instructions APPLICATION INSTRUCTIONS: apply to abdominal folds, under breasts aspirin 81 MG tablet 81 mg PO QHS multivitamin with folic acid 1 TABLET tablet 1 tab PO DAILY Patient Comments: vitamin supplement ascorbic acid (vitamin C) 500 mg tablet 1,000 mg PO LUNCH Patient Comments: supplement omega-3 fatty acids-fish oil 1 EACH capsule 1 ea PO DAILY Patient Comments: supplement ferrous sulfate 325 MG tablet 325 mg PO DAILY menthol-zinc oxide [Calmoseptine] 0.44-20.6 % Ointment 1 applic topical BID Qty: 0 0RF Protocol: *Topical Application Instructions APPLICATION INSTRUCTIONS: groin gabapentin (bulk) 100 % Powder 2 ea topical BID Qty: 0 0RF oxycodone 5 mg Tablet 5 mg PO Q4H PRN PRN (Reason: Pain Score 4-10) Qty: 0 0RF linezolid 600 mg Tablet 600 mg PO BID Qty: 21 0RF Rx Instructions: STOP DATE 06/01/25 AFTER AM DOSE. pregabalin 100 mg capsule 100 mg PO TID Acidophilus Capsule 600 mg PO QDAY acetaminophen 650 mg tablet extended release 650 mg PO Q12H PRN (Reason: pain) glimepiride 2 mg tablet 2 mg PO BID clopidogrel 75 mg tablet 75 mg PO DAILY Qty: 90 3RF Patient Comments: ask about stopping simvastatin 20 mg tablet 20 mg PO QHS Qty: 30 11RF amlodipine 5 mg tablet 5 mg PO DAILY Qty: 90 3RF metoprolol succinate 25 mg tablet extended release 24 hr 12.5 mg PO DAILY Qty: 45 3RF Primary Care Provider: Rishi Vasquez Referrals: Rishi Vasquez DO [Primary Care Provider] - Activity Restrictions/Additional Instructions: Sure his lab work was stable. She has a mild anemia which should continue to be monitored but she does not require blood transfusion today. Her hemoglobin is 7.6. She did have signs of dehydration however her blood pressure improved significantly with 2 L of IV fluid. Continue to push fluids. Continue to give antibiotics. Print Language: Setswana Disposition Disposition: Senior Living Facility Discharge Location: [facility] Transitional Care Unit
[2025-06-11 10:04] LABS: AST(SGOT) 19 U/L (<=31); Alanine Aminotransfer ALT/SGPT 10 U/L (<=34); Albumin, Serum 2.4 g/dL (3.4-4.8); Alkaline Phosphatase 49 U/L (35-104); Anion Gap 9 (5-15); BUN 53 mg/dL (4-19); BUN/Creat Ratio 40.1 RATIO (10-20); Calcium,Total 8.2 mg/dL (7.6-11.0); Carbon Dioxide 21.2 mmol/L (21.0-32.0); Chloride 108 mmol/L (98-108); Estimated Creatinine Clearance 39.90 ml/min (50-250); Globulin 2.3 g/dL (2.2-4.2); Glucose 58 mg/dL (70-99); Potassium 3.0 mmol/L (3.3-5.1)
[2025-06-11] MEDS: Potassium Chloride 20mEq/100mL 20 MEQ/100 ML IV.SOLN. 50 MEQ IV BOLUS (10:40)
[2025-06-11 11:30] LABS: Magnesium 1.8 mg/dL (1.5-2.2)
[2025-06-11] MEDS: 0.9% Normal Saline (1000mL) 1,000 ML 999 ML IV (12:01)
[2025-06-11] MEDS: Potassium Chloride Oral Soln 20 MEQ/15 ML UDC PO (12:42)
== END 2025-06-11 15:05 | disposition skilled nursing facility (03) ==
PROVIDERS: Emergency Provider Emergency Medicine; PCP Student in an Organized Health Care Education/Training Program; Visit Provider Emergency Medicine
DX: I95.9 Hypotension, unspecified (principal); E11.622 Type 2 diabetes mellitus with other skin ulcer; L97.922 Non-pressure chronic ulcer of unspecified part of left lower leg with fat layer exposed; M86.672 Other chronic osteomyelitis, left ankle and foot; E11.42 Type 2 diabetes mellitus with diabetic polyneuropathy; E11.22 Type 2 diabetes mellitus with diabetic chronic kidney disease; E11.69 Type 2 diabetes mellitus with other specified complication; E11.59 Type 2 diabetes mellitus with other circulatory complications; N18.30 Chronic kidney disease, stage 3 unspecified; N39.0 Urinary tract infection, site not specified; I25.10 Atherosclerotic heart disease of native coronary artery without angina pectoris; Z87.891 Personal history of nicotine dependence; I12.9 Hypertensive chronic kidney disease with stage 1 through stage 4 chronic kidney disease, or unspecified chronic kidney disease; E86.0 Dehydration; B96.89 Other specified bacterial agents as the cause of diseases classified elsewhere; E78.00 Pure hypercholesterolemia, unspecified; E87.6 Hypokalemia; D64.9 Anemia, unspecified; I73.9 Peripheral vascular disease, unspecified
CPT/HCPCS: 36592; 71046; 80053; 83605; 83735; 85025; 96361; 96365; 96366; 99283; A4216

== ENCOUNTER → 2025-06-12 | Outpatient (CLI) | payer MEDICARE, SELFPAY ==
--- NOTE | 2025-06-12 09:48 | VDUE_ITS ---
Reason For Study Reason For Study: RUE Pain / PICC Line Right Proximal Right jugular vein is spontaneous, widely patent, phasic, with no intraluminal echogenicity noted. Right Subclavian vein is spontaneous, widely patent and phasic. PICC line is seen but no other intraluminal echoes are visualized. Right Lower Arm Right radial vein is compressible. Right ulnar vein is compressible. Right Arm Right AXillary vein is spontaneous, widely patent and phasic. PICC line is seen but no other intraluminal echoes are visualized. Right Brachial vein is spontaneous, widely patent and phasic. PICC line is seen but no other intraluminal echoes are visualized. Right cephalic vein is compressible. Right Basilic vein is spontaneous, widely patent and phasic. PICC line is seen but no other intraluminal echoes are visualized. Patient Safety Preliminary delivered to TCU RN. Procedure This was a unilateral right upper extremity venous doppler examination. VL/Venous Duplex US, Unilateral Interpretation Summary Deep veins of the right upper extremity are patent segmentally. The superficial veins of the right upper extremity, the basilic and cephalic veins, are patent. There is no evidence of right upper ext remity deep or superficial thrombophlebitis. A PICC catheter is visualized within the right upper extremit y venous system. Ordering Physician: Phong Al Chi Referring Physician: Phong Al Chi Performed By: Tigre Tatum RVT ???
== END | disposition home or self-care (01) ==
LOC: CVS 09:48
PROVIDERS: PCP Student in an Organized Health Care Education/Training Program; Referring Provider Family Medicine Geriatric Medicine; Visit Provider Family Medicine Geriatric Medicine
DX: M79.601 Pain in right arm (principal)
CPT/HCPCS: 93971

== ENCOUNTER 2025-06-16 08:00 | Outpatient (RCR) | payer SELFPAY ==
[2025-06-16 14:42] VITALS: BP 130/53; PULSE 53; RESP 16; TEMP 36.6; O2SAT 97
[2025-06-16 15:00] VITALS: BP 130/53; PULSE 53; RESP 16; TEMP 36.6; O2SAT 97
[2025-06-16 15:15] VITALS: BP 143/52; PULSE 51; RESP 16; TEMP 36; O2SAT 100
[2025-06-16 16:15] VITALS: BP 135/59; PULSE 53; RESP 16; TEMP 35.9; O2SAT 100
[2025-06-16 16:42] VITALS: BP 141/51; PULSE 50; RESP 16; TEMP 35.9; O2SAT 99
== END 2025-06-18 23:59 ==
LOC: CR 08:00
PROVIDERS: PCP Student in an Organized Health Care Education/Training Program; Referring Provider Student in an Organized Health Care Education/Training Program; Visit Provider Student in an Organized Health Care Education/Training Program
DX: Z00.00 Encounter for general adult medical examination without abnormal findings (principal)
CPT/HCPCS: 36430; 86850; 86900; 86901; P9016

== ENCOUNTER → 2025-06-19 | Outpatient (CLI) | payer MEDICARE, SELFPAY ==
--- NOTE | 2025-06-19 08:51 | VDUE_ITS ---
Reason For Study Reason For Study: Right arm swelling Right Proximal Left Proximal Right jugular vein is spontaneous, widely patent, Left subclavian vein is spontaneous, widely patent, phasic, with no intraluminal echogenicity noted. phasic, with no intraluminal echogenicity noted. Subclavian V is partially NONCOMPRESSIBLE, unable to detect venous flow. Acute deep vein thrombosis is noted on the PICC line. Right Lower Arm Right radial vein is compressible. Right ulnar vein is compressible. Right Arm Right Axillary vein is compressible with continuous venous flow. PICC line is seen but no other intraluminal echoes are visualized. Right Brachial vein is compressible.PICC line is seen but no other intraluminal echoes are visualized. Right cephalic vein is compressible. Right Basilic vein is compressible. PICC line is seen but no other intraluminal echoes are visualized. Procedure This was a unilateral right upper extremity venous doppler examination. Exam performed portable in patient room. A preliminary report was called and/or faxed to Carole [facility]. VL/Venous Duplex US, Unilateral Interpretation Summary Acute deep vein thrombosis is noted in the right subclavian vein. The remainder of the right upper extremity deep venous system is patent. The superficial veins of the right upper extremity, the basil ic and cephalic veins, are patent and compressible. There is no evidence of right upper extremity superficial thrombo phlebitis involving the veins imaged. A PICC line is noted in the right upper extremity venous system. The left subclav joy vein is patent. Ordering Physician: Phong Al Chi Referring Physician: Rishi Vasquez Performed By: Jacquie French RVT ???
== END | disposition home or self-care (01) ==
LOC: CVS 08:50
PROVIDERS: PCP Student in an Organized Health Care Education/Training Program; Referring Provider Family Medicine Geriatric Medicine; Visit Provider Family Medicine Geriatric Medicine
DX: R22.31 Localized swelling, mass and lump, right upper limb (principal)
CPT/HCPCS: 93971

== ENCOUNTER 2025-06-23 09:48 | Outpatient (RCR) | payer SELFPAY | END 2025-07-19 23:59 | disposition home or self-care (01) | LOC: CR 09:48 | PROVIDERS: PCP Student in an Organized Health Care Education/Training Program; Referring Provider Student in an Organized Health Care Education/Training Program; Visit Provider Student in an Organized Health Care Education/Training Program | DX: Z00.00 Encounter for general adult medical examination without abnormal findings (principal) ==

== ENCOUNTER 2025-06-30 05:50 | Day surgery (SDC) | payer MEDICARE, SELFPAY ==
--- NOTE | 2025-06-12 18:20 | PAT.ANE_ITS ---
Pre-Assessment Diagnosis/Proposed Procedure Planned Operative Procedure(s): (R) Right Femoral Endarterectomy, Right femoral to Tibial artery Bypass with Cadaver Graft, Right Sartorius Flap Anesthesia History Anesthesia History - front end developer designer: Anesthesia History - front end developer designer Hx Hospitalization Yes: 05-26-25 vascular surgery 06/12/25 09:50 Any Problems With Anesthesia No 06/12/25 09:50 Cholinesterase deficiency No 06/12/25 09:50 You/Your Family Experience No 06/12/25 09:50 fever (hyperthermia) with Relationship Recent Exposure to Contagious No 04/02/24 09:13 Disease Does patient have nerve No 06/12/25 09:50 stimulator Patient instructed to have device shut off --Does patient have Pacemaker or ICD? When Was Last Pacemaker Check QUESTION #4 FULL TEXT: You/Your Family Experience fever (hyperthermia) with Anesthesia Last Oral Intake Last Oral intake: Last Oral Intake NPO since Meds taken in AM with sips of water? Meds patient instructed to take am of surgery PONV PONV - front end developer designer: PONV - front end developer designer Female Yes 06/12/25 09:50 HX of Motion Sickness No 06/12/25 09:50 HX of N/V After Surgery No 06/12/25 09:50 Non-Smoker Yes 06/12/25 09:50 Duration of Surgery greater Yes 06/12/25 09:50 than 60 minutes Number of Risk Factors 3 06/12/25 09:50 PONV Score Moderate Risk 06/12/25 09:50 Height & Weight Height & Weight: Anesthesia: Height & Weight Height 5 ft 6 in 04/15/25 11:26 Respiratory Assessment Respiratory Assessment - front end developer designer: Respiratory Tract Infection Hx - front end developer designer Hx Respiratory Tract Infection No 06/12/25 09:50 STOP Sleep Apnea STOP Sleep Apnea - front end developer designer: STOP Sleep Apnea - front end developer designer Hx Hypertension Yes: on meds 06/12/25 09:50 Hx Sleep Apnea No 06/12/25 09:50 CPAP No 04/02/24 09:13 BIPAP No 04/02/24 09:13 Do you snore loudly (louder No 06/12/25 09:50 than talking or can be heard Do you often feel tired/ No 06/12/25 09:50 fatigued/ sleepy during daytime? Has anyone observed you stop No 06/12/25 09:50 breathing during sleep? STOP Results Negative 06/12/25 09:50 QUESTION #5 FULL TEXT : Do you snore loudly (louder than talking or can be heard through closed doors)? 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 Use History - front end developer designer: Tobacco Use History - front end developer designer Tobacco Use Cigarettes 04/02/24 09:13 Smoking Status Former smoker 06/12/25 09:50 Hx Tobacco Use No 06/12/25 09:50 Years Smoking Packs Smoked per Day Smoking Cessation Date was No - quit smoking greater 06/12/25 09:50 within the last 15 years than 15 years ago Hx Smoking Cessation Date 01/01/13 04/15/25 11:26 Hx Smoking Cessation No 06/12/25 09:50 Counseling Hematologic Medial History Hematologic Hx - front end developer designer: Hematologic Medical Hx - manager property Hx of Blood Transfusion Yes 06/12/25 09:50 Hx of Transfusion in last 3 Yes 06/12/25 09:50 Months Date of Last Transfusion (if 06-02-25 06/12/25 09:50 within last 3 months) Ever experience any problems No 06/12/25 09:50 with transfusion(s)? Specify any problems Hx of Preganancy in last 3 No 06/12/25 09:50 Months Nurse Filling Out Transfusion JZOLLINGE 06/12/25 09:50 & Questions: Date: 06/12/25 06/12/25 09:50 Time: 09:52 06/12/25 09:50 Patient unable to answer at this time (ie. confused, unrespo /Reproduction History /Reproductive History - front end developer designer: /Reproductive Hx- front end developer designer Hx Now No 06/12/25 09:50 Gestational Age (in weeks): EDC: Hx Hx Para Hx Section SAB No 06/12/25 09:50 [facility] Medical History (Updated 06/12/25 @ 11:[address] Kwaku Mendoza MD) Non-pressure chronic ulcer of other part of right foot with fat layer exposed 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 foot with fat layer exposed Type 2 diabetes mellitus with foot ulcer History of MRSA infection Pressure ulcer Ambulates with cane Shortness of breath on exertion History of edema History of echocardiogram Fall 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 Atherosclerosis of [place] artery of both lower extremities with gangrene Other specified peripheral vascular diseases Chronic painful diabetic polyneuropathy Anemia MRSA (methicillin resistant staph aureus) culture positive Diabetes Back pain Vertigo History of pain when walking Hypertension Arthritis Wears dentures Post-menopausal Low iron High cholesterol Easy bruising Neuropathy Dietary restriction Former smoker Cardiology follow-up encounter History of torn meniscus of left knee Carotid artery stenosis Essential hypertension Skin lesion Hammer toe of left foot Osteomyelitis Chronic kidney disease, stage 3 Atherosclerosis of coronary artery of [place] heart without angina pectoris Hyperlipidemia Peripheral vascular occlusive disease Hammer toe of second toe of left foot Hallux valgus (acquired), right foot Healed ulcer of left foot on examination Chronic ulcer of left foot with fat layer exposed Delayed wound healing Malnutrition Osteomyelitis of foot 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 Methicillin resistant Staphylococcus aureus infection Chronic osteomyelitis of left foot Non-healing ulcer of right foot DM2 (diabetes mellitus, type 2) Home Medications ?Medication ?Instructions ?Recorded ?Last Taken ?Type aspirin 81 mg tablet,delayed 81 mg PO QHS blood clots 01/13/14 05/31/25 20:15 History release multivitamin with folic acid 400 1 tab PO DAILY Supple ment 01/13/14 06/01/25 09:00 History mcg tablet omega-3 fatty acids-fish oil 340 1 ea PO DAILY supplem ent 06/29/16 08/27/16 History mg-1,000 mg capsule ferrous sulfate 325 mg (65 mg 325 mg PO DAILY SUPPLEME NT 08/15/18 06/10/25 History iron) tablet ascorbic acid (vitamin C) 500 mg 1,000 mg PO LUNCH Sup plement 11/25/20 06/01/25 12:50 History tablet calcium carbonate (Calcium 600) 600 mg PO DAILY supple ment 12/29/21 06/01/25 09:00 History clopidogrel 75 mg tablet 75 mg PO DAILY Blood clots # 90 tabs 10/23/24 06/01/25 09:00 Rx Lactobacillus acidophilus 600 mg PO QDAY gi 03/07/25 0 06/01/25 09:00 History (Acidophilus capsule) pregabalin 100 mg capsule 100 mg PO TID nerve pain 06/01/25 12:50 History simvastatin 20 mg tablet 20 mg PO QHS cholesterol #30 tabs 03/23/25 05/31/25 20:15 Rx nystatin 100,000 unit/gram topical 1 applic topical BI D PRN rash 05/07/25 Unknown History powder ([facility]) acetaminophen 650 mg 650 mg PO Q12H PRN pain 04/20 Unknown History tablet,extended release amlodipine 5 mg tablet 5 mg PO DAILY HTN #90 tabs 0 05/12/25 06/01/25 09:00 Rx metoprolol succinate 25 mg 12.5 mg (1/2 x 25 mg) PO DA FABIAN 05/12/25 06/01/25 09:00 Rx tablet,extended release 24 hr HEART RATE #45 tabs glimepiride 2 mg tablet 2 mg PO BID Diabetes 5 Unknown History menthol 0.44 %-zinc oxide 20.6 % 1 applic topical BID Skin 05/28/25 Unknown Rx topical ointment (Calmoseptine) Irritation #0 grams oxycodone 5 mg tablet 5 mg PO Q4H PRN PRN Pain Sco re 05/28/25 05/30/25 Rx 4-10 #0 tabs Allergy/AdvReac Type Severity Reaction Status Date / Time Sulfa (Sulfonamide Allergy Unknown Verified 06/12/25 09:37 Antibiotics) Family History Father CAD (coronary artery disease) Heart disease Hypertension CVA (cerebral vascular accident) Mother COPD (chronic obstructive pulmonary disease) Hypertension Heart disease Heart failure Surgical History History of cardiac catheterization History of colonoscopy History of foot surgery History of repair of left rotator cuff History of total left knee replacement (~2014) History of angioplasty of peripheral vessel (~2012) amputation left toe History of left heart catheterization (~01/20/14) Social History household members: none Smoking Status: Former smoker how long ago did patient quit smokin years ago alcohol intake: never substance use type: does not use caffeine: No Audit: Pertinent Findings Pertinent Findings EKG Perinent findings: 05/22/2025. Normal sinus rhythm. Septal infarct, age undetermined. Stress test pertinent findings: May 08, 2025. Ejection fraction 55%. Resting hypoperfusion of the inferior lateral wall consistent with nontransmural infarct with mild will-infarct ischemia. Echo (EF%) pertinent findings: March 11, 2024. EF is 60%. No aortic stenosis. Consult pertinent findings: May 14, 2025. Jennifer EMERY. Patient is cleared for procedure. May 07, 2025. Rubio EMERY. 1. Systolic murmur?acute-last echo in February 2024 showed no hemodynamically significant valvular disease. Trivial MR seems to be stable. Continue current medical therapy. Continue to monitor. 2. Hypertension?[id number]. 3. Atherosclerosis of the coronary arteries without angina?chronic-history of known totally occluded RCA. Stable. Continue to monitor. 4. Preop CV exam-activity is very limited. Will check nuclear stress test. (See above) Recommendation Anesthesia Recommendation Anesthesia recommendation: OPTIMIZED for anesthesia
[2025-06-30] VITALS (9 sets, daily range): BP systolic 135–152; BP diastolic 53–63; PULSE 53–70; RESP 14–17; TEMP 36.1–36.6; O2SAT 94–99; BMI 28.1
--- OUTSIDE RECORDS SUMMARY | 2025-06-30 05:59 | XMS RPT_ITS | CCD ---
Author Organization [facility] CliniSytn Care Team Providers Care Car Pre Cooler Name Role Phone Ray Ochoa Unavailable Unavailable [...] Cedaniel, Dr. Kwaku Abraham Other Provider Roof PORTABLE ROUTER OPERATOR, YULY Tripathi Attending Provider Rishi Vasquez DO Primary Care Provider Dr. Rishi Vasquez Primary Care Provider Dr. Kwaku Moscoso Attending Provider Dr. Kwaku Moscoso Referring Provider Dr. Rishi Vasquez Referring Provider Rishi Vasquez DO Primary Care Provider Roof PORTABLE ROUTER OPERATOR, YULY Tripathi Attending Provider Dr. Rishi Vasquez Primary Care Provider CeDr. Kwaku sanchez Attending Provider Danis, Dr. Kwaku Abraham Referring Provider Dr. Rishi Vasquez Referring Provider Roof PORTABLE ROUTER OPERATOR, PORTABLE ROUTER OPERATORFavio Tripathi Attending Provider Dr. Rishi Vasquez Primary [...] Provider Vasquez, Dr. Blackwell Referring Provider Roof PORTABLE ROUTER OPERATOR, PORTABLE ROUTER OPERATORFavio Tripathi Attending Provider CeDr. Kwaku sanchez Attending [...] Provider Dr. Elyssa Fierro Attending Provider Dmitry SORT OPERATIONS SUPERVISOR.Clary FLORES Unavailable Violeta CROSS.Yani FLORES Unavailable Dr. Rishi Vasquez DO Primary Care Provider Pedro DO, Dr. Blackwell Attending Provider Pedro EUCEDA, Dr. Blackwell Referring Provider Haseeb DPM, Dr. Taylor Attending Provider Carol Stream DPM, Dr. Taylor Referring Provider Irene DPM, [...] Provider Ke LUNDBERG, Dr. Villafana Attending Provider Tremayne LUNDBERG, Dr. Ames Other Provider Ke LUNDBERG, Dr. Villafana Other Provider Abena Baxter Attending Provider Servando LUNDBERG, Dr. Phong Benítez Admit Provider Servando LUNDBERG, Dr. Phong Benítez Attending Provider Servando LUNDBERG, Dr. Phong Benítez Referring Provider Fiore PA, Abena Other Provider Servando LUNDBERG, Dr. Phong Benítez Other Provider Urbano LUNDBERG, Dr. Wells Referring Provider Pedro EUCEDA, Dr. Blackwell Primary Care Provider [phone] Pedro DO, Dr. Blackwell Attending Provider Pedro EUCEDA, Dr. Blackwell Referring Provider Haseeb DPM, Dr. Taylor Attending Provider Haseeb DPM, Dr. Taylor Referring Provider Pedro DO, Dr. Blackwell Primary Care Provider Pedro EUCEDA, Dr. Blackwell Attending Provider Pedro DO, Dr. Blackwell Referring Provider Macarena VYAS, Abena Referring Provider [phone] Pedro EUCEDA, Dr. Blackwell Primary Care Provider [phone] Teto MOHAMUD, Dr. Sweeney Attending Provider Víctor LUNDBERG, Dr. Wagoner Attending Provider Víctor LUNDBERG, Dr. Wagoner Referring Provider Pedro EUCEDA, Dr. Blackwell Primary Care Provider Urbano LUNDBERG, Dr. Wells Attending Provider [facility] PORTABLE ROUTER OPERATOR-C, Rick Attending Provider Chandra SORT OPERATIONS SUPERVISOR.SIX HORSE HITCH DRIVER, Ld Chato Unavailable [phone] Kb LUNDBERG, Dr. Wheat Attending Provider Kb LUNDBERG, Dr. Wheat Referring Provider Kb LUNDBERG, Dr. Wheat Other Provider Pedro EUCEDA, Dr. Blackwell Primary Care Provider [phone] Pedro EUCEDA, Dr. Blackwell Attending Provider Pedro EUCEDA, Dr. Blackwell Referring Provider Jamal STEVENSONM, Dr. Wagoner Attending Provider [phone] Jamal STEVENSONM, Dr. Wagoner Referring Provider Teto DPM, Dr. Sweeney Attending Provider Teto DPM, Dr. Sweeney Referring Provider Rosita EUCEDA, Dr. Orellana Emergency Provider Shonda LUNDBERG, Dr. Maddie Lawrence Admit Provider Shonda LUNDBERG, Dr. Maddie Lawrence Referring Provider Shonda LUNDBERG, Dr. Maddie Lawrence Other Provider Teto DPM, Dr. Sweeney Other Provider Chantal LUNDBERG, Dr. Mendez Other Provider Urbano LUNDBERG, Dr. Wells Other Provider Ke LUNDBERG, Dr. Villafana Attending Provider Tremayne LUNDBERG, Dr. Ames Other Provider Urbano LUNDBERG, Dr. Wells Attending Provider Ke LUNDBERG, Dr. Villafana Other Provider Macarena VYAS, Abena Attending Provider Servando LUNDBERG, Dr. Phong Benítez Admit Provider Servando LUNDBERG, Dr. Phong Benítez Attending Provider Servando LUNDBERG, Dr. Phong Benítez Referring Provider Macarena VYAS, Abena Other Provider Servando LUNDBERG, Dr. Phong Benítez Other Provider Urbano LUNDBERG, Dr. Wells Referring Provider Macarena VYAS, Abena Referring Provider Dr. Ciaran Renee MD Attending Provider Dr. Ciaran Renee MD Referring Provider Rick Jessica Attending Provider Kb LUNDBERG, Dr. Wheat Attending Provider Kb LUNDBERG, Dr. Wheat Referring Provider Kb LUNDBERG, Dr. Wheat Other Provider Jonathan EUCEDA, Dr. Guthrie Referring Provider Jonathan EUCEDA, Dr. Guthrie Emergency Provider Shonda LUNDBERG, Dr. Maddie Lawrence Attending Provider Tres DO, Dr. Jennings Attending Provider Fabián LUNDBERG, Dr. Larson Other Provider Beata LUNDBERG, Dr. Gonzalez Other Provider Billy LUNDBERG, Dr. Da Silva Other Provider Dashawn DO, Dr. Casey Other Provider Kisha LUNDBERG, Dr. Christos Correa Other Provider Abilio LUNDBERG, Dr. Graham Other Provider Jessica LUNDBERG, Dr. Gilmore Other Provider Rickey LUNDBERG, Dr. Jolly Other Provider Adan LUNDBERG, Dr. Gomez Other Provider [phone] Xavier LUNDBERG, Dr. Russ Other Provider [phone] Ernesto LUNDBERG, Dr. Springer Other Provider [phone] Barb LUNDBERG, Dr. Mcpherson Other Provider [phone] Adal LUNDBERG, Dr. Mathew Other Provider Unavailabl prosper Villalobos MD, Dr. Meneses Other Provider Yomi LUNDBERG, Dr. Eugene Other Provider Lyric LUNDBERG, Dr. Velazquez Other Provider Elisabeth LUNDBERG, Dr. Castillo Other Provider Dr. Lavell Rodriges DO Other Provider Jennifer LUNDBERG, Dr. Fabian Other Provider Segun LUNDBERG, Dr. Sweet Other Provider Amanda EUCEDA, Dr. Morales Other Provider Zachary LUNDBERG, Dr. Huff Other Provider Mark LUNDBERG, Dr. Delarosa Other Provider [phone] Tres EUCEDA, Dr. Jennings Other Provider Dashawn EUCEDA, Dr. Casey Attending Provider Fabián LUNDBERG, Dr. Larson Other Provider Beata LUNDBERG, Dr. Gonzalez Other Provider Billy LUNDBERG, Dr. Da Silva Other Provider Dashawn EUCEDA, Dr. Casey Other Provider Kisha LUNDBERG, Dr. Christos Correa Other Provider Abilio LUNDBERG, Dr. Graham Other Provider Jessica LUNDBERG, Dr. Gilmore Other Provider Rickey LUNDBERG, Dr. Jolly Other Provider Adan LUNDBERG, Dr. Gomez Other Provider Xavier LUNDBERG, Dr. Russ Other Provider Dr. Gian Orozco MD Other Provider Dr. Vida Day MD Other Provider Adal LUNDBERG, Dr. Mathew Other Provider Unavailabl prosper Villalobos MD, Dr. Meneses Other Provider [phone] Yomi LUNDBERG, Dr. Eugene Other Provider Lyric LUNDBERG, Dr. Velazquez Other Provider [phone] Elisabeth LUNDBERG, Dr. Castillo Other Provider Dr. Lavell Rodriges DO Other Provider [phone] Caren Rodriguez MD Other Provider Segun LUNDBERG, Dr. Sweet Other Provider Dr. Andrew Patel DO Other Provider Zachary LUNDBERG, Dr. Huff Other Provider Mark LUNDBERG, Dr. Delarosa Other Provider Andry DO, Dr. Shelby Emergency Provider Lakeisha EUCEDA, Dr. Ladd Admit Provider [phone] Lakeisha EUCEDA, Dr. Ladd Attending Provider Lakeisha EUCEDA, Dr. Ladd Referring Provider Lakeisha EUCEDA, Dr. Ladd Other Provider [phone] Shonda LUNDBERG, Dr. Maddie Lawrence Attending Provider Cristhian LUNDBERG, Dr. Sher Attending Provider Unavaila [facility] Shonda LUNDBERG, Dr. Maddie Lawrence Attending Provider Cristhian LUNDBERG, Dr. Sher Other Provider Unavailable Pedro EUCEDA, Dr. Blackwell Primary Care Provider [phone] Pedro EUCEDA, Dr. Blackwell Attending Provider [phone] Pedro EUCEDA, Dr. Blackwell Referring Provider [phone] Lakesiha EUCEDA, Dr. Ladd Referring Provider Friend DO, Dr. Vivas Attending Provider Beau DO, Dr. Vivas Other Provider Lakeisha EUCEDA, Dr. Ladd Referring Provider Dario EUCEDA, Dr. Christie Emergency Provider Pedro EUCEDA, Dr. Blackwell Primary Care Provider Pedro EUCEDA, Dr. Blackwell Attending Provider [phone] Pedro EUCEDA, Dr. Blackwell Referring Provider Dario EUCEDA, Dr. Christie Attending Provider RISHI VASQUEZ L Primary Care Unavailable RISHI VASQUEZ L Attending Unavailable RISHI VASQUEZ Primary Care Unavailable YUMIKO WHITEHEAD Attending Unavailable VASQUEZRISHI FERNANDEZ Primary Care Unavailable LD ARTIS Attending Unavailable VASQUEZ, RISHI L Primary Care Unavailable VASQUEZRISHI L Referring Unavailable RISHI VASQUEZ Primary Care Unavailable Rishi Vasquez Primary Care Unavailable Maddie Merchant Referring Unavailable Broderick Dempsey Attending Unavailable Patel Irene Consulting Unavailable Maddie Merchant Admitting Unavailable Tanphaichitr, Natthavat Consulting Unavaila ble [place], Russell Consulting Unavailable White, Maddie L Consulting Unavailable Tremayne, Kwaku Consulting Unavailable [place]rb[place], Russell Attending Unavailable [place], Russell Admitting Unavailable Vasquez, Rishi Primary Care Unavailable Urb[place], Russell Referring Unavailable Vasquez, Rishi Primary Care Unavailable Ungur, Remus Referring Unavailable White, Maddie L Attending Unavailable White, Maddie L Admitting Unavailable White, Maddie L Consulting Unavailable Patel Irene Consulting Unavailable Vasquez, Rishi Primary Care Unavailable Servando, Phong Chi Admitting Unavailable Servando, Phong Chi Attending Unavailable Tremayne, Kwaku Consulting Unavailable Fiore, Abena Consulting Unavailable Vasquez, Rishi Primary Care Unavailable Vasquez, Rishi Attending Unavailable Vasquez, Rihsi Referring Unavailable Vasquez, Rishi Primary Care Unavailable Vasquez, Rishi Attending Unavailable Vasquez, Rishi Referring Unavailable Vasquez, Rishi Attending Unavailable Vasquez, Rishi Primary Care Unavailable Vasquez, Rishi Referring Unavailable [place], Russell Attending Unavailable Urbano, Russell Admitting Unavailable Vasquez, Rishi Primary Care Unavailable Vasquez, Rishi Primary Care Unavailable Servando, Phong Chi Attending Unavailable Servando, Phong Chi Referring Unavailable Fiore, Abena Referring Unavailable Fiore, Abena Attending Unavailable Vasquez, Rishi Primary Care Unavailable Ciaran Renee Referring Unavailable Ciaran Renee Attending Unavailable Vasquez, Rishi Primary Care Unavailable Vasquez, Rishi Primary Care Unavailable Jarret Quiles Attending Unavailable Jarret Quiles Referring Unavailable Vasquez, Rishi Primary Care Unavailable Brandon Membreno Attending Unavailable Brandon Membreno Referring Unavailable Vasquez, Rishi Primary Care Unavailable Ciaran Berry Attending Unavailable Ciaran Berry Referring Unavailable Vasquez, Rishi Primary Care Unavailable Shahnaz Bishop Attending Unavailable Vasquez, Rishi Primary Care Unavailable Servando, Phong Chi Referring Unavailable Servando, Phong Chi Attending Unavailable Vasquez, Rishi Primary Care Unavailable Fernando Vogel Attending Unavailable Vasquez, Rishi Referring Unavailable [place], Russell Attending Unavailable Fiore, Abena Referring Unavailable Vasquez, Rishi Primary Care Unavailable Vasquez, Rishi Primary Care Unavailable [place]rb[place], Russell Attending Unavailable Haseeb Brandon Referring Unavailable Vasquez, Rishi Primary Care Unavailable Vasquez, Rishi Referring Unavailable Ortega Yanez Attending Unavailable Michaela Joshua Attending Unavailable Neo Lockwood Consulting Unavailable Carlos Cota Consulting Unavailable Avinash Cervantes Consulting Unavailable Jacinto Tamez Consulting Unavailable Christos Beard Consulting Unavailable Santos Knox Consulting Unavailable Mando Lopez Consulting Unavailable Shanae Lang Consulting UnavailJason Resendez Consulting Unavailable Jeb Park Consulting Unavailable Gian Orozco Consulting Unavailable Vida Day Consulting Unavailable Quincy Galeas Consulting Unavailable VillalobosZaira folres Consulting Unavailable YomiCharity lintontam Consulting Unavailable Marcus Gunter Consulting Unavailable Elisabeth, Jonathan Consulting Unavailable Dheneo Lavell Consulting Unavailable Caren Rodriguez Consulting Unavailable Kee Cast Consulting Unavailable Andrew Patel Consulting Unavailable Refugio Sharma Consulting Unavailable [place] Flores Consulting Unavailable Patel Irene Consulting Unavailable Russell Clement Consulting Unavailable Kwaku Mendoza Consulting Unavailable Michaela Joshua Consulting Unavailable Russell Clement Attending Unavailable Maddie Merchant L Referring Unavailable Vasquez, Rishi Primary Care Unavailable Maddie Merchant L Attending Unavailable Shonda Maddie L Admitting Unavailable Maddie Merchant L Consulting Unavailable Ke, Broderick Attending Unavailable Patel Irene Consulting Unavailable Abena Fiore Attending Unavailable ServandoPhong vaughan Chi Consulting Unavailable Tanphaichitr, Natthavat Consulting Unavaila Russell Wyatt Consulting Unavailable Abena Fiore Attending Unavailable Vasquez, Rishi Primary Care Unavailable Vasquez, Rishi Referring Unavailable Kwaku Mendoza Consulting Unavailable Ke, Broderick Consulting Unavailable Jacinto Tamez Attending Unavailable Vasquez, Rishi Primary Care Unavailable Brandon Membreno Attending Unavailable Brandon Membreno Referring Unavailable Vasquez, Rishi Primary Care Unavailable Patel Irene Attending Unavailable Vasquez, Rishi [...] Referring Unavailable Vasquez, Rishi Primary Care Unavailable Christos Morrow Attending Unavailable Mosteller, Wilberto Admitting Unavailable Mosteller, Wilberto Consulting Unavailable Mosteller, Wilberto Referring Unavailable Tres, Michaela Consulting Unavailable Irene, Patel Consulting Unavailable [place], Russell Consulting Unavailable White, Maddie L Consulting Unavailable Vasquez, Rishi Primary Care Unavailable Curtis Gastelum Referring Unavailable PraktonVivians Attending Unavailable Vasquez, Rishi Primary Care Unavailable Vasquez, Rishi Attending Unavailable Vasquez, Rishi Referring Unavailable Vasquez, Rishi Primary Care Unavailable Tremayne, Kwaku Consulting Unavailable Servando, Phong Chi Admitting Unavailable Servando, Phong Chi Referring Unavailable Servando, Phong Chi Attending Unavailable Irene, Patel Consulting Unavailable Fiore, Abena Consulting Unavailable Vasquez, Rishi Primary Care Unavailable Ungur, Remus Referring Unavailable Michaela Joshua Attending Unavailable White, Maddie L Admitting Unavailable White, Maddie L Consulting Unavailable Tremayne, Kwaku Consulting Unavailable Irene, Patel Consulting Unavailable [place]rb[place], Russell Consulting Unavailable Vasquez, Rishi Primary Care Unavailable Kb, Jarret Attending Unavailable Kb, Jarret Consulting Unavailable Kb, Jarret Referring Unavailable Urb[place], Russell Referring Unavailable Vasquez, Rishi Primary Care Unavailable [place]rb[place], Russell Attending Unavailable Vasquez, Rishi Primary Care Unavailable Friend, Ortega Consulting Unavailable Vasquez, Rishi Referring Unavailable Friend, Ortega Attending Unavailable Vasquez, Rishi Primary Care Unavailable Mosteller, Wilberto Admitting Unavailable Mosteller, Wilberto Consulting Unavailable Mosteller, Wilberto Attending Unavailable Mosteller, Wilberto Referring Unavailable Mosteller, Wilberto Referring Unavailable Mosteller, Wilberto Admitting Unavailable Mosteller, Wilberto Consulting Unavailable Vasquez, Rishi Primary Care Unavailable White, Maddie L Attending Unavailable Tres, Michaela Consulting Unavailable Irene, Patel Consulting Unavailable [place], Russell Consulting Unavailable White, Maddie L Consulting Unavailable Tres, Michaela Attending Unavailable Irene, Patel Consulting Unavailable Tres, Michaela Consulting Unavailable [place], Russell Consulting Unavailable Urbano, Russell Attending Unavailable Fiore, Abena Attending Unavailable [place], Russell Attending Unavailable Christos Morrow Attending Unavailable Christos Morrow Consulting Unavailable Vasquez, Rishi Primary Care Unavailable Fiore, Abena Attending Unavailable Vasquez, Rishi Referring Unavailable Vasquez, Rishi Primary Care Unavailable Vasquez, Rishi Referring Unavailable Rick Bergeron Attending Unavailable Vasquez, Rishi Primary Care Unavailable Fiore, Abena Attending Unavailable Vasquez, Rishi Referring Unavailable Fiore, Abena Attending Unavailable Vasquez, Rishi Primary Care Unavailable Kwaku Mendoza Consulting Unavailable Servando, Phong Chi Admitting Unavailable Servando, Phong Chi Referring Unavailable Irnee, Patel Consulting Unavailable Fiore, Abena Consulting Unavailable Servando, Phong Chi Consulting Unavailable [place], Russell Referring Unavailable [place], Russell Attending Unavailable [place], Russell Consulting Unavailable Vasquez, Rishi Primary Care Unavailable Fiore, Abena Attending Unavailable Ortega Yanez Attending Unavailable Vasquez, Rishi Primary Care Unavailable Servando, Phong Chi Referring Unavailable Servando, Phong Chi Attending Unavailable Vasquez, Rishi Primary Care Unavailable Irene, Patel Referring Unavailable Irene, Patel Attending Unavailable Dr. Rishi Vasquez DO Primary Care Provider Allergies Allergy Classification Reported Allergen(s) Allergy Type Date of Onset Reaction(s) Facility Sulfonamides (antibiotic) (1 source) Sulfonamides (Antibiotic) Drug Allergy 3 Unknown [facility] (10 sources) Sulfonamides (Antibiotic) drug allergy 4 [facility] Work Phone: (20 sources) Sulfonamides (Antibiotic); Translations: [SULFA (SULFONAMIDE ANTIBIOTICS)] Drug Allergy 3 Unknown [facility] (20 sources) Sulfonamides (Antibiotic) Allergy to substance 2 Unknown [facility] Comment on above: doesn't remember/ al florina noted as a child (1 source) Sulfonamides (Antibiotic) Drug allergy (disorder) 5 [facility] Repository Medications Current Medications Medication Drug Class(es) Dates Sig (Normalized) Sig (Original) 8 hr acetaminophen 650 mg extended release oral tablet (20 sources) Start: 05-08-2025 Start: 03-17-2025 take 2 tablets by [facility] every six hours as needed for [...] TYLENOL CAPS a s needed ACETAMINOPHEN CAPS [id number] Kwaku Moscoso MD Start: 09-22-2016 End: 11-22-2016 TYLENOL CAPS as needed 09/22 ACETAMINOPHEN CAPS [id number] Espinoza Hancockbre [place]IL[place] Start: 09-22-2016 TYLENOL CAPS a s needed ACETAMINOPHEN CAPS [id number] Espinoza Walter Grant ALFONSO Start: 09-22-2016 End: 11-22-2016 TYLENOL CAPS as needed 09/22 ACETAMINOPHEN CAPS [id number] Espinoza Walter Grant ALFONSO Start: 09-22-2016 TYLENOL CAPS a s needed ACETAMINOPHEN CAPS [id number] Espinoza Hancockr ALFONSO take 2 tablets by [facility] every six hours as needed acetaminophen [...] TABS One tablet by mouth daily ASPIRIN [id number] Carole Garber RN Start: 06-30-2013 take 1 [...] Comment on above: Take 1 capsule by [facility] twice daily for 7 days. ferrous sulfate 325 mg oral tablet (20 sources) Start: 8 take 1 tablet by mouth once daily Ferrous Sulfate 325 MG tablet Active 325 mg PO DAILY August 15, 2018 12:00am Start: 08-30-2017 take 1 tablet by wei twice daily FERROUS SULFATE 325 (65 Fe) MG TABS One tablet by mouth twice daily FERROUS SULFATE [id number] Kwaku Moscoso MD Comment on above: Take 325 mg by mouth daily with breakfast. glimepiride 2 mg oral tablet (20 sources) Sulfonylurea Start: 05-11-2025 Start: 03-07-2025 End: 05-07-2025 Start: 03-24-2024 End: [...] 600 mg oral capsule (8 sources) Start: take 1 capsule by mouth once daily [...] 05, 2020 1:00am administer with a meal Grnpwzdz-Uslh-Gnt-Folic Acid 18-0.4 mg tab (20 sources) Start: 03-02-2014 take 1 tablet by mouth once daily Ayreingl-Fukr-Ern-Folic Acid 18-0.4 mg tab Take 1 tablet by mouth once daily. 03/02/2014 Active Start: 03-02-2014 take 1 tablet by wei th once daily Mzsmcbrs-Smvd-Esm-Folic Acid 18-0.4 mg t ab Take 1 [...] on above: Take 1 capsule by mo [facility] twice daily with meals for 7 days. nystatin 100 unt/mg topical powder (20 sources) Polyene Antifungal Start: 03-17-2025 End: 05-07-2025 Start: 03-17-2025 End: 05-07-2025 Nystatin (Nyamyc) 100,000 un it/gram powder Active 1 NMA TOPICAL TWICE A DAY as needed for rash Candis 19th, 2025 9:30am Please contact the information source [...] 1 capsule by mo uth once daily. [place]-3 Fatty Acids-Fish Oil (20 sources) Start: 06-29-2016 [place]-3 Fatty Acids-Fish Oil Active 1 EACH PO DAILY June 29, 2016 1:08pm Start: 06-29-2016 [place]-3 Fatty Acids-Fish Oil Active 1 EACH PO DAILY June 28, 2016 11:00pm Start: 06-29-2016 [place]-3 Fatty Acids-Fish Oil Active 1 EACH PO DAILY June 29, 2016 12:00am [place]-3 Fatty Acids-Fish Oil 1 EACH capsule (11 sources) Start: 06-29-2016 [place]-3 Fatty Acids-Fish Oil 1 EACH capsule Active 1 NMA PO DAILY June 29, 2016 12:00am oxyCODONE hydrochloride 5 mg oral tablet (7 sources) Opioid Agonist Start: 05-28-2025 pregabalin 100 mg oral capsule (20 sources) Start: 03-07-2025 Saccharomyces boulardii (20 sources) [...] th daily at bedtime. (20 sources) Start: 05-28-2025 End: 06-12-2025 Start: 05-28-2025 Start: 03-07-2025 Start: 10-05-2020 End: 03-07-2025 Start: [...] One tablet by mouth daily AMLODIPINE BESYLATE [id number] Ira Lopez PA-C Comment on above: Take [...] One tablet by mouth twice daily CALCIUM [id number] Kwaku Moscoso MD calcium ascorbate 500 mg [...] MG SOLR q 12 hrs CEFTAROLINE FOSAMIL [id number] Shaina Serna LPN ceftaroline fosamil 600 mg injection (20 sources) Start: 11-15-2016 End: 07-23-2018 End: 01-04-2017 TEFLARO 400 MG SOLR q 12 hrs CEFTAROLINE FOSAMIL [id number] Espinoza Burns MA cholecalciferol 0.05 mg oral capsule (20 sources) Vitamin D Start: 05-20-2020 End: 03-07-2025 Start: 05-20-2020 End: 03-07-2025 take 1 capsule by mouth once daily Cholecalciferol (Vitamin D3) 50 mcg (2,000 unit) capsule Discontinued 2000 U PO DAILY August 08, 2022 9:41am March 07, 2025 4:02pm take 1 capsule by [facility] once daily Cholecalciferol, Vitamin D3, 25 [...] One tablet by mouth daily CLOPIDOGREL BISULFATE [id number] Brandon Ch MD Comment on above: Take 75 mg by mouth once daily. clotrimazole 10 mg oral lozenge (20 sources) Azole Antifungal Start: 09-20-2016 End: 11-22-2016 CLOTRIMAZOLE 10 MG LOZG 1 tab 5 x a day CLOTRIMAZOLE [id number] Espinoza Burns MA collagenase 0.25 unt/mg topical ointment (10 sources) Collagen-specific Enzyme Start: 05-21-2025 End: 05-28-2025 Cranberry Extract (20 sources) Non-Standardized Food Allergenic [...] CRANBERRY CAPS Cranberry Extract daily CRANBERRY CAPS [id number] Brandon Ch MD Start: 11-25-2014 Cranberry Extr act 300 mg tab Take by mouth. 0 11/25/2014 Active Comment on above: Take by mouth. DOCUSATE SODIUM CAPS (10 sources) Histamine-1 Receptor Antagonist, Nonsteroidal Anti-inflammatory Drug Start: 09-22-2016 STOOL SOFTENER CAPS twice daily DOCUSATE SODIUM CAPS [id number] Espinoza Burns MA Start: 09-22-2016 End: 11-22-2016 STOOL SOFTENER CAPS twice da nhi DOCUSATE SODIUM CAPS [id number] Espionza Burns MA Start: 09-22-2016 STOOL SOFTENER CAPS twice daily DOCUSATE SODIUM CAPS [id number] Espinoza Burns MA Start: 09-22-2016 End: 11-22-2016 STOOL SOFTENER CAPS twice da nhi DOCUSATE SODIUM CAPS [id number] Espinoza Burns MA docusate sodium 100 mg [...] SOFTENER CAPS twice daily DOCUSATE SODIUM CAPS [id number] Espinoza Burns MA Start: 09-22-2016 STOOL SOFTENER CAPS twice daily DOCUSATE SODIUM CAPS [id number] Espinoza Jose Angel Grant [place] doxycycline monohydrate 100 mg oral capsule (20 sources) Tetracycline-class Drug Start: 03-11-2025 End: 05-07-2025 Start: 01-02-2025 End: 03-11-2025 Start: 02-14-2017 End: 06-11-2017 take 1 tablet by mouth twice daily DOXYCYCLINE HYCLATE 100 MG CAPS One tablet by mouth twice daily DOXYCYCLINE HYCLATE [id number] Marly Patino MD estradiol 0.1 mg/ml vaginal [...] MG /GM CREA Take as directed ESTRADIOL [id number] Brandon Ch MD Start: 05-25-2015 ESTRACE 0.1 MG /GM CREA Take as directed ESTRADIOL [id number] Brandon Ch MD Comment on above: Use 1 g vaginally tw ice a week. Use 1 g vaginally tw o times a week. fish oil (5 sources) Start: 09-20-2016 take 1 tablet by mouth once daily OMEGA-3 FISH OIL 300 MG CAPS One tablet by mouth daily OMEGA-3 FATTY ACIDS [id number] Meka Jones Start: 09-20-2016 take 1 tablet by wei th once daily OMEGA-3 FISH OIL 300 MG CAPS One tablet by mouth daily OMEGA-3 FATTY ACIDS [id number] Meka Jones gabapentin 600 mg oral table [...] mg 24 hr extended release oral tablet (20 sources) Sulfonylurea Start: End: [...] TABS Two tablets by mouth daily HYDROCHLOROTHIAZIDE [id number] Carole Garber RN Comment on above: Take 1 tablet by wei once daily. 3 ml insulin lispro 100 unt/ml pen injector (20 sources) Insulin Analog Start: 5 End: 5 LACTOBACILLUS CAPS (2 sources) Start: 7 take 1 tablet by mouth once daily ACIDOPHILUS CAPS 600 mg. One tablet by mouth daily LACTOBACILLUS CAPS [id number] Kwaku Moscoso MD LACTOBACILLUS CAPS (20 sources) Start: 6 ACIDOPHILUS/PECTIN CAPS 1 tab every night LACTOBACILLUS CAPS [id number] Meka Jones Start: 09-20-2016 End: 11-22-2016 ACIDOPHILUS/PECTIN CAPS 1 ta b every night LACTOBACILLUS CAPS [id number] Espinoza Burns MA Start: 09-20-2016 End: 11-22-2016 ACIDOPHILUS/PECTIN CAPS 1 ta b every night LACTOBACILLUS CAPS [id number] Espinoza Burns MA Start: 09-20-2016 ACIDOPHILUS/PE CTIN CAPS 1 tab every night LACTOBACILLUS CAPS [id number] Meka Jones Start: 07-11-2016 End: 08-31-2016 Start: 07-11-2016 End: 08-31-2016 take 1 tablet by mouth twice daily Acidophilus-Pectin, [place] 1 EACH tablet Discontinued 1 NMA PO TWICE A DAY July 11, 2016 12:00am August 31, 2016 5:49pm Start: 07-11-2016 End: 08-31-2016 Acidophilus-Pectin, [place] D iscontinued 1 EACH PO TWICE A DAY July 11, 2016 12:00am August 31, 2016 5:49pm levoFLOXacin 500 mg oral tab let (20 sources) Quinolone Antimicrobial Start: 06-29-2016 End: 09-05-2016 linezolid 600 mg oral tablet (20 sources) Oxazolidinone Antibacterial Start: 05-21-2025 End: 06-12-2025 Start: 01-08-2017 End: 07-29-2018 lisinopril 20 mg [...] tablet by mouth twice daily METFORMIN HCL [id number] Kwaku Moscoso MD Start: 01-05-2014 End: 07-29-2018 [...] Start: 01-12-2014 take 1 tablet by wei th once daily TOPROL XL 50 MG [id number] (ER) One tablet by mouth daily METOPROLOL SUCCINATE [id number] Brandon Ch MD Start: 01-05-2014 take 1 tablet by wei th once daily METOPROLOL SUCCINATE ER 25 MG [id number] One tablet by mouth daily METOPROLOL SUCCINATE [id number] Carole Garber RN Comment on above: Take 1 tablet by wei th once daily. metroNIDAZOLE 500 mg oral tablet (20 sources) Nitroimidazole Antimicrobial Start: 03-11-20 End: 05-07-20 MULTIPLE VITAMIN (10 sources) Start: 01-05-20 take 1 tablet by mouth once daily MULTIVITAMINS TABS One tablet by mouth daily MULTIPLE VITAMIN Carole Garber RN Start: 01-05-2014 take 1 tablet by wei th once daily MULTIVITAMINS TABS One tablet by mouth daily MULTIPLE VITAMIN Carole Garber RN Dqscjhfj-Ugju-Fdg-Folic Acid (CENTRUM COMPLETE) 18-0.4 mg tab (12 sources) Start: 03-02-2014 take 1 tablet by mouth once daily Csrrjowp-Cdtw-Kfe-Folic Acid (CENTRUM COMPLETE) 18-0.4 mg tab Take 1 tablet by mouth once daily. 0 03/02/2014 Active Comment on above: Take 1 tablet by wei th once daily. naproxen sodium 220 mg oral tablet (20 sources) Nonsteroidal Anti-inflammat ory Drug Start: 01-05-2014 End: 12-29-2014 ALEVE 220 MG TABS as needed NAPROXEN SODIUM [id number] Carole Garber RN nitroglycerin 0.4 mg sublingual tablet (10 sources) Nitrate Vasodilator Start: 01-05-2014 NITROSTAT 0.4 MG SUBL 1 tablet under tongue every 5 min up to 3 X NITROGLYCERIN [id number] Carole Garber RN OMEGA-3 FATTY ACIDS (5 sources) Start: 09-20-2016 take 1 tablet by mouth once daily OMEGA-3 FISH OIL 300 MG CAPS One tablet by mouth daily OMEGA-3 FATTY ACIDS [id number] Mkea Jones polysaccharide iron complex 150 mg oral capsule (12 sources) Start: 09-20-2016 End: 08-30-2017 take 1 tablet by mouth once daily FERREX 150 150 MG CAPS One tablet by mouth daily POLYSACCHARIDE IRON COMPLEX [id number] Kwaku Moscoso MD Start: 09-20-2016 take 1 tablet by wei th once daily FERREX 150 150 MG CAPS One tablet by mouth daily POLYSACCHARIDE IRON COMPLEX [id number] Meka Jones pravastatin sodium 20 mg oral tablet (20 sources) HMG-CoA Reductase Inhibitor Start: 01-05-2014 End: 01-22-2015 take 1 tablet by mouth once daily PRAVASTATIN SODIUM 20 MG TABS One tablet by mouth daily PRAVASTATIN SODIUM [id number] Carole Garber RN senokot-s (2 sources) Start: 08-30-2017 take 1 tablet by mouth twice daily STOOL SOFTENER 100 MG TABS One tablet by mouth twice daily DOCUSATE SODIUM [id number] Kwaku Moscoso MD vancomycin 50 mg/ml injectable solution (20 sources) Glycopeptide Antibacterial Start: 09-20-2016 End: 11-22-2016 take 1000 mg intravenous route every twenty-four hours VANCOMYCIN HCL 1000 MG SOLR IV Q24 hours for 38 days VANCOMYCIN HCL [id number] Meka Jones Problems Active Problems Problem Classification [...] Comment on above: ~2015 Chronic kidney disease (1 source) Chronic kidney disease; Translations: [Stage 3 chronic kidney disease, unspecified whether stage 3a or 3b CKD (HCC)] Onset: 2 Chronic ulcer of skin (20 sources) Pressure [...] disease (20 sources) Atherosclerotic heart disease of [place] coronary artery without angina pectoris; Translations: [Coronary [...] to her diabetes. Deficiency and other anemia (1 source) Iron deficiency anemia secondary to blood loss (chronic); Translations: [Iron deficiency anemia secondary to blood loss (chronic)] Onset: 5 Chronic Deficiency and other anemia (20 sources) Anemia; Translations: [Anemia, unspecified] Onset: 8 02-25-2018 Episodic Deficiency and other anemia (20 sources) Iron deficiency anemia; Translations: [Iron deficiency anemia, unspecified] 03-11-2025 Episodic Deficiency and other anemia (4 sources) Chronic anemia; Translations: [Anemia, unspecified] 06-11-2025 Episodic Deficiency and other anemia (1 source) Anemia, unspecified; Translations: [Anemia, unspecified] Onset: 5 Episodic Diabetes mellitus with complications (20 sources) [...] treated through the primary service as well. E Codes: Fall (12 sources) Fall; Translations: [Unspecified fall, initial encounter] Onset: 5 05-22-2025 Episodic Essential hypertension (20 sources) Hypertensive disorder; Translations: [Essential hypertension] Onset: 3 Resolved: 6 01-05-2014 Chronic Comment on above: Blood pressure is ad equately controlled in her home environment in the office today 142/71 at home this morning it was 109/55 CONTROLLED WITH MED Fluid and electrolyte disorders (16 sources) Dehydration; Translations: [Dehydration] 05-18-2025 Episodic Gangrene (20 sources) Atherosclerosis of artery of lower limb; Translations: [Atherosclerosis of [place] arteries of extremities with gangrene, bilateral legs] [...] toe with extension onto dorsum of foot Intestinal infection (7 sources) Clostridium difficile diarrhea; Translations: [Enterocolitis due to Clostridium difficile, not specified as recurrent] Onset: 5 06-12-2025 Episodic Malaise and fatigue (20 sources) Fatigue; [...] other than malignant neoplasm] 03-27-2025 Episodic Other aftercare (1 source) Encounter for surgical aftercare following surgery on the circulatory system; Translations: [Encounter for surgical aftercare following surgery on the circulatory system] Onset: Episodic Other and unspecified benign neoplasm (20 [...] Translations: [Other specified peripheral vascular diseases] Onset: Chronic Other circulatory disease (1 source) Disorder of arteries and arterioles, unspecified; Translations: [Disorder of arteries and arterioles, unspecified] Onset: 5 Chronic Other circulatory disease (4 sources) Low blood pressure; Translations: [Hypotension, unspecified] 06-11-2025 Episodic Other connective tissue disease (20 sources) Rhabdomyolysis; Translations: [Rhabdomyolysis] 03-07-2025 Episodic Other connective tissue disease (20 sources) Recurrent falls ; Translations: [Repeated falls] 03-07-2025 Episodic Other connective tissue disease (1 source) Falls; Translations: [Repeated falls] 03-27-2025 Episodic Other connective tissue disease (1 source) Pain in right arm; Translations: [Pain in right arm] Onset: 5 Episodic Other injuries and conditions [...] 1 05-31-2021 Chronic Other non-traumatic joint disorders (8 sources) Charcot's joint of foot; Translations: [Charcot's joint, unspecified ankle and foot] 06-10-2025 Chronic Other non-traumatic joint disorders (1 source) Arthropathy, unspecified; Translations: [Arthritis, multiple joint involvement] Onset: 1 Chronic Other non-traumatic joint disorders (1 source) Charcot's joint, unspecified ankle and foot; Translations: [Charcot's joint, unspecified ankle and foot] Onset: 5 Chronic Other non-traumatic joint disorders (1 source) Charcot's joint, left ankle and foot; Translations: [Charcot's joint, left ankle and foot] Onset: 5 Chronic Other non-traumatic joint disorders (1 source) Shoulder pain; Translations: [Pain in right shoulder] Episodic Other non-traumatic joint disorders (1 source) Pain in right shoulder; Translations: [Pain in joint, shoulder region] 06-17-2022 Episodic Other nutritional; endocrine; and metabolic disorders (10 sources) Overweight; Translations: [Overweight] Onset: 7 02-06-2017 Chronic Other skin disorders (20 sources) Personal history of diseases of the skin and subcutaneous tissue; Translations: [Healed ulcer of left foot on examination] 02-28-2019 Episodic Other skin disorders (20 sources) Skin lesion; Translations: [Disorder of the skin and subcutaneous tissue, unspecified] 02-28-2019 Episodic Other skin disorders (1 source) Localized swelling, mass and lump, right upper limb; Translations: [Localized swelling, mass and lump, right upper limb] Onset: 5 Episodic Peripheral and visceral atherosclerosis (20 sources) Peripheral vascular disease; Translations: [Peripheral vascular disease, unspecified] Onset: 3 12-29-2014 Chronic Comment on above: 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-Left SFA 2013 Phlebitis; thrombophlebitis and thromboembolism (3 sources) Acute embolism and thrombosis of deep veins of right upper extremity; Translations: [Deep venous thrombosis of upper extremity] Onset: 5 06-19-2025 Episodic Residual codes; unclassified (1 source) Illness, unspecified; Translations: [Illness, unspecified] Onset: 5 Episodic Residual codes; unclassified (2 sources) Other specified postprocedural states; Translations: [Other specified postprocedural states] Onset: 5 Episodic Respiratory failure; insufficiency; arrest (adult) (20 sources) Acute respiratory failure; Translations: [Acute respiratory failure with hypoxia] Onset: 5 05-18-2025 Episodic Septicemia (except in labor) (20 sources) Sepsis; Translations: [Sepsis, unspecified organism] Onset: 5 05-18-2025 Episodic Skin and subcutaneous tissue infections (20 sources) Cutaneous actinomycosis; Translations: [Cellulitis] Onset: 6 Resolved: 7 11-23-2016 Episodic Comment on above: L03.116cellulitis do rsum left foot and ankle L02.612infected diab etic ulcer abscess dorsum left foot and lateral foot by small toe metatarsal head and small toe Spondylosis; intervertebral disc disorders; other back problems (15 sources) Degeneration of lumbar intervertebral disc; Translations: [...] subsequent encounter] Onset: 10-04-2016 10-05-2016 Episodic Other connective tissue disease (2 sources) Repeated falls; Translations: [Falling episodes] Onset: 03-20-2025 Episodic Other connective tissue disease (1 source) Rhabdomyolysis; Translations: [Rhabdomyolysis] Onset: 03-20-2025 Episodic Other diseases of veins and lymphatics [...] of breath] Onset: 01-05-2014 01-05-2014 Episodic Other nutritional; endocrine; and metabolic disorders [...] Test Name Value Interpretation Reference Range Facility Glucose measurement at [facility] deOrdered By: Phong Solomon on 06-29-2025 Glucose [Mass/Vol] 86 mg/dL 74-106 [facility] Hematocrit Auto (Bld) [Volum e fraction]Ordered By: Abena Fiore on 06-29-2025 Hematocrit (Bld) [Volume fraction] 26.4 % Low 37-47 [facility] Hemoglobin measurementOrdere d By: Abena Fiore on 06-29-2025 Hemoglobin (Bld) [Mass/Vol] 8.3 g/dL Low 12.0-15.0 [facility] Trough vancomycin levelOrder ed By: Kwaku Mendoza on 06-28-2025 Vancomycin trough [Mass/Vol] 19.9 ug/mL High 5.0-15.0 [facility] Absolute lymphocyte countOrd ered By: Phong Solomon on 06-23-2025 Lymphocytes Auto (Unsp spec) [#/Vol] 1.13 10*3/uL 0.83-4.51 [facility] Anion gap in Serum or Plasma Ordered By: Phong Solomon on 06-23-2025 Anion gap [Moles/Vol] 9 mmol/L 5-15 [facility] Automated lymphocyte count a s percentage of total leukocytesOrdered By: Phong Solomon on 06-23-2025 Lymphocytes/100 WBC Auto (Unsp spec) 24.8 % 19-41 [facility] BUN/creatinine ratioOrdered By: Phong Solomon on 06-23-2025 Urea nitrogen/Creatinine [Mass ratio] 46.7 mg/mg High 10-20 [facility] Basophil percentageOrdered B y: Phong Solomon on 06-23-2025 Basophils/100 WBC (Bld) 1.5 % High 0-1 [facility] Carbon dioxide, total [Moles /volume] in Central venous bloodOrdered By: Phong Solomon on 06-23-2025 CO2 [Moles/Vol] 23.0 mmol/L 21.0-32.0 [facility] Chloride assayOrdered By: Addy Solomon on 06-23-2025 Chloride [Moles/Vol] 112 mmol/L High 98-108 [facility] Eosinophil percentageOrdered By: Phong Solomon on 06-23-2025 Eosinophils/100 WBC (Bld) 9.4 % High 0-5 [facility] Erythrocyte distribution wid th ratioOrdered By: Phong Solomon 06-23-2025 Erythrocyte distribution width (RBC) [Ratio] 16.8 % High 11.6-14.6 [facility] Erythrocyte distribution wid th standard deviationOrdered By: Phong Solomon 06-23-2025 Erythrocyte distribution width (RBC) [Ratio] 54.4 fl High 35.1-43.9 [facility] Glomerular filtration rate ( GFR) estimation/1.73 sq m using serum, plasma, or whole bOrdered By: Phong Solomon 06-23-2025 GFR/1.73 sq M.predicted among non-blacks MDRD (S/P/Bld) [Vol rate/Area] 68 mL/min/{1.73_m2} >60 [facility] Immature granulocytes/100 WB C Auto (Bld)Ordered By: Phong Solomon 06-23-2025 Immature granulocytes/100 WBC (Bld) 0.700 % 0.0-0.9 [facility] MCV (mean corpuscular volume ) determinationOrdered By: Phong Solomon 06-23-2025 MCV (RBC) [Entitic vol] 90.5 fL 81-99 [facility] Mean corpuscular hemoglobin (MCH) determinationOrdered By: Phong Solomon 06-23-2025 MCH (RBC) [Entitic mass] 28.9 pg 27.0-32.0 [facility] Monocyte percentageOrdered B y: Phong Solomon 06-23-2025 Monocytes/100 WBC (Bld) 12.7 % High 0-10 [facility] Neutrophil percentageOrdered By: Phong Solomon on 06-23-2025 Neutrophils/100 WBC (Bld) 50.9 % 47-70 [facility] Platelet countOrdered By: Addy Solomon on 06-23-2025 Platelets (Bld) [#/Vol] 176 10*3/uL 150-450 [facility] Potassium measurement (mass/ volume)Ordered By: Phong Solomon on 06-23-2025 Potassium (Unsp spec) [Mass/Vol] 3.7 mmol/L 3.3-5.1 [facility] RBC Auto (Bld) [#/Vol]Ordere d By: Phong Solomon on 06-23-2025 RBC (Bld) [#/Vol] 2.94 10*6/uL Low 4.2-5.4 [facility] Serum creatinine measurement (mass/volume)Ordered By: Phong Solomon on 06-23-2025 Creatinine [Mass/Vol] 0.90 mg/dL 0.70-1.20 [facility] Serum glucose measurement (m ass/volume)Ordered By: Phong Solomon on 06-23-2025 Glucose [Mass/Vol] 78 mg/dL 70-99 [facility] Serum or plasma calcium natalia urement (mass/volume)Ordered By: Phong Solomon on 06-23-2025 Calcium [Mass/Vol] 8.4 mg/dL 7.6-11.0 [facility] Serum or plasma urea nitroge n measurement (mass/volume)Ordered By: Phong Solomon on 06-23-2025 Urea nitrogen [Mass/Vol] 42 mg/dL High 4-19 [facility] Sodium levelOrdered By: Phong Solomon on 06-23-2025 Sodium [Moles/Vol] 144 mmol/L 133-145 [facility] White blood cell (WBC) count Ordered By: Phong Solomon on 06-23-2025 WBC (Bld) [#/Vol] 4.6 10*3/uL 4.4-11.0 [facility] Serum or plasma vancomycin m easurement (mass/volume)Ordered By: Kwaku Mendoza on 06-20-2025 Vancomycin [Mass/Vol] 16.7 ug/mL High 0.0-15.0 [facility] Culture, Fungus 8482on 06-19 CUF Normal [facility] Comment on above: Performed By: #### M 600.2200, M100.2000, M100.3000, M100.4001, M600.1999 ####[facility] [address] [place], [place], [id number] Fungus Stain 8136on 06-19-20 25 FUNST Normal [facility] Comment on above: Performed By: #### M 600.2200, M100.2000, M100.3000, M100.4001, M600.1999 ####[facility] [address] [place], [place], [id number] Glucose measurement at [facility] deOrdered By: Phong Solomon on 06-18-2025 Glucose [Mass/Vol] 164 mg/dL High 74-106 [facility] Serum or plasma vancomycin m easurement (mass/volume)Ordered By: Kwaku Mendoza on 06-18-2025 Vancomycin [Mass/Vol] 17.9 ug/mL High 0.0-15.0 [facility] Hematocrit Auto (Bld) [Volum e fraction]Ordered By: hPong Solomon on 06-17-2025 Hematocrit (Bld) [Volume fraction] 27.7 % Low 37-47 [facility] Hemoglobin measurementOrdere d By: Phong Solomon on 06-17-2025 Hemoglobin (Bld) [Mass/Vol] 9.2 g/dL Low 12.0-15.0 [facility] Trough vancomycin levelOrder ed By: Kwaku Mendoza on 06-17-2025 Vancomycin trough [Mass/Vol] 24.2 ug/mL High 5.0-15.0 [facility] Absolute lymphocyte countOrd ered By: Phong Solomon on 06-16-2025 Lymphocytes Auto (Unsp spec) [#/Vol] 1.03 10*3/uL 0.83-4.51 [facility] Anion gap in Serum or Plasma Ordered By: Phong Solomon on 06-16-2025 Anion gap [Moles/Vol] 9 mmol/L 5-15 [facility] Automated lymphocyte count a s percentage of total leukocytesOrdered By: Phong Solomon on 06-16-2025 Lymphocytes/100 WBC Auto (Unsp spec) 17.7 % Low 19-41 [facility] BUN/creatinine ratioOrdered By: Phong Solomon on 06-16-2025 Urea nitrogen/Creatinine [Mass ratio] 43.4 mg/mg High 10-20 [facility] Basophil percentageOrdered B y: Phong Solomon on 06-16-2025 Basophils/100 WBC (Bld) 1.4 % High 0-1 [facility] Carbon dioxide, total [Moles /volume] in Central venous bloodOrdered By: Phong Solomon on 06-16-2025 CO2 [Moles/Vol] 19.0 mmol/L Low 21.0-32.0 [facility] Chloride assayOrdered By: Addy Solomon on 06-16-2025 Chloride [Moles/Vol] 113 mmol/L High 98-108 [facility] Eosinophil percentageOrdered By: Phong Solomon on 06-16-2025 Eosinophils/100 WBC (Bld) 9.5 % High 0-5 [facility] Erythrocyte distribution wid th ratioOrdered By: Phong Solomon on 06-16-2025 Erythrocyte distribution width (RBC) [Ratio] 15.6 % High 11.6-14.6 [facility] Erythrocyte distribution wid th standard deviationOrdered By: Phong Solomon on 06-16-2025 Erythrocyte distribution width (RBC) [Ratio] 50.2 fl High 35.1-43.9 [facility] Glomerular filtration rate ( GFR) estimation/1.73 sq m using serum, plasma, or whole bOrdered By: Phong Solomon on 06-16-2025 GFR/1.73 sq M.predicted among non-blacks MDRD (S/P/Bld) [Vol rate/Area] 54 mL/min/{1.73_m2} Low >60 [facility] Glucose measurement at bedsi deOrdered By: Phong Solomon on 06-16-2025 Glucose [Mass/Vol] 213 mg/dL High 74-106 [facility] Hematocrit Auto (Bld) [Volum e fraction]Ordered By: Phong Solomon 06-16-2025 Hematocrit (Bld) [Volume fraction] 23.3 % Low 37-47 [facility] Hemoglobin measurementOrdere d By: Phong Solomon on 06-16-2025 Hemoglobin (Bld) [Mass/Vol] 7.4 g/dL Low 12.0-15.0 [facility] Immature granulocytes/100 WB C Auto (Bld)Ordered By: Phong Solomon on 06-16-2025 Immature granulocytes/100 WBC (Bld) 0.500 % 0.0-0.9 [facility] MCV (mean corpuscular volume ) determinationOrdered By: Phong Solomon on 06-16-2025 MCV (RBC) [Entitic vol] 88.9 fL 81-99 [facility] Mean corpuscular hemoglobin (MCH) determinationOrdered By: Phong Solomon on 06-16-2025 MCH (RBC) [Entitic mass] 28.2 pg 27.0-32.0 [facility] Monocyte percentageOrdered B y: Phong Solomon on 06-16-2025 Monocytes/100 WBC (Bld) 11.4 % High 0-10 [facility] Neutrophil percentageOrdered By: Phong Solomon on 06-16-2025 Neutrophils/100 WBC (Bld) 59.5 % 47-70 [facility] Platelet countOrdered By: Addy Solomon on 06-16-2025 Platelets (Bld) [#/Vol] 216 10*3/uL 150-450 [facility] Potassium measurement (mass/ volume)Ordered By: Phong Solomon 06-16-2025 Potassium (Unsp spec) [Mass/Vol] 3.9 mmol/L 3.3-5.1 [facility] RBC Auto (Bld) [#/Vol]Ordere d By: Phong Solomon on 06-16-2025 RBC (Bld) [#/Vol] 2.62 10*6/uL Low 4.2-5.4 [facility] Serum creatinine measurement (mass/volume)Ordered By: Phong Solomon on 06-16-2025 Creatinine [Mass/Vol] 1.09 mg/dL 0.70-1.20 [facility] Serum glucose measurement (m ass/volume)Ordered By: Phong Solomon on 06-16-2025 Glucose [Mass/Vol] 167 mg/dL High 70-99 [facility] Serum or plasma calcium natalia urement (mass/volume)Ordered By: Phong Solomon 06-16-2025 Calcium [Mass/Vol] 8.1 mg/dL 7.6-11.0 [facility] Serum or plasma urea nitroge n measurement (mass/volume)Ordered By: Phong Servando on 06-16-2025 Urea nitrogen [Mass/Vol] 47 mg/dL High 4-19 [facility] Serum or plasma vancomycin m easurement (mass/volume)Ordered By: Kwaku Mendoza on 06-16-2025 Vancomycin [Mass/Vol] 20.1 ug/mL High 0.0-15.0 [facility] Sodium levelOrdered By: Phong Servando on 06-16-2025 Sodium [Moles/Vol] 141 mmol/L 133-145 [facility] Stool gastrointestinal hemog lobin detection by immunologic methodOrdered By: Phong Servando on 06-16-2025 Lower GI hemoglobin IA Ql (Stl) Positive Abnormal [facility] White blood cell (WBC) count Ordered By: Phong Servando on 06-16-2025 WBC (Bld) [#/Vol] 5.8 10*3/uL 4.4-11.0 [facility] Trough vancomycin levelOrder ed By: Kwaku Mendoza on 06-15-2025 Vancomycin trough [Mass/Vol] 25.0 ug/mL High 5.0-15.0 [facility] CNPNon 06-12-2025 CNPN Telephone (FAMPWS) -------- GELY FULLER ([id number]) 1950 F Date Time Provider Department 06/12/25 RISHI VASQUEZ FAMWS During your visit today, we recorded the following information about you: Rachel Jacobs MA 06/12/2025 1:44 PM Signed Scan on 06/12/2025 11:59 AM by Provider, YANG MorrisonC: Admit [facility] 06/12/25-Current A1C \EANDE\ CMP for review Patient admitted to [facility] faxed current A1C AND CMP results. ALFONSO Myles Jordan L, DO 06/15/2025 7:33 AM Signed Noted Labs reviewed Please update the A1c and lipids results in DO Mandeep Ernst Julia, LPN 06/17/2025 5:20 PM Signed A1C has been added but did not see a lipid panel Allergies As of Date: 06/12/2025 Noted Allergy Reaction SULFA (SULFONAMIDE ANTIBIOTICS) 01/13/2013 16 - Unknown Comments: childhood Date Reviewed: 04/30/2025 Reviewed by: Joanie Rosario LPN - Fully Assessed Reason for Visit: Results [95] Cmt: [facility] lab results (A1C AND CMP) Order(s):HBA1C (OUTSIDE) [[id number]] Order #: [id number] Prescriptions as of 06/17/2025 - glimepiride (AMARYL) 2 mg tablet Take [...] 1 tablet by mouth once daily. - Xviezvrg-Jggq-Ynn-Folic Acid 18-0.4 mg tab Take 1 tablet by mouth once daily. - omega-3 fatty acids 1,000 mg cap Take 1 capsule by mouth once daily. - Aspirin 81 mg Tab Take 1 tablet by mouth once daily. Take with food. Problem List As Of Date 06/12/2025 Noted Resolved Peripheral vascular occlusive disease [I73.9] [...] [L72.3, L08.9] 02/26/2019 Coronary artery disease involving [place] heart *05/28/2019 Abnormal urine odor [R82.90] 05/28/2019 [...] screening mammogram for malignant*12/05/2024 Encounter Status:Closed by SHANDRA KAUFMAN on 06/17/25 Normal [facility] HBA1C (OUTSIDE)on 06-12-2025 HbA1c (Bld) [Mass fraction] 7.4 % High [facility] Interpretation and review of laboratory results Abnormal [facility] Venous duplex ultrasound rep ortOrdered By: Giancarlo Ann on 06-12-2025 US Vein [facility] Other Phone: Absolute lymphocyte countOrd ered By: Shahnaz Bishop on 06-11-2025 Lymphocytes Auto (Unsp spec) [#/Vol] 1.04 10*3/uL 0.83-4.51 [facility] Anion gap in Serum or Plasma Ordered By: Shahnaz Bishop on 06-11-2025 Anion gap [Moles/Vol] 9 mmol/L 5-15 [facility] Automated lymphocyte count a s percentage of total leukocytesOrdered By: Shahnaz Bishop on 06-11-2025 Lymphocytes/100 WBC Auto (Unsp spec) 14.9 % Low 19-41 [facility] BUN/creatinine ratioOrdered By: Shahnaz Bishop on 06-11-2025 Urea nitrogen/Creatinine [Mass ratio] 40.1 mg/mg High 10-20 [facility] Basophil percentageOrdered B y: Shahnaz Bishop on 06-11-2025 Basophils/100 WBC (Bld) 0.6 % 0-1 [facility] Bilirubin, totalOrdered By: Shahnaz Bishop on 06-11-2025 Bilirubin [Mass/Vol] 0.25 mg/dL 0.00-1.30 [facility] Carbon dioxide, total [Moles /volume] in Central venous bloodOrdered By: Shahnaz Bishop on 06-11-2025 CO2 [Moles/Vol] 21.2 mmol/L 21.0-32.0 [facility] Chloride assayOrdered By: Deric Bishop on 06-11-2025 Chloride [Moles/Vol] 108 mmol/L 98-108 [facility] Eosinophil percentageOrdered By: Shahnaz Bishop on 06-11-2025 Eosinophils/100 WBC (Bld) 1.7 % 0-5 [facility] Erythrocyte distribution wid th ratioOrdered By: Shahnaz Bishop on 06-11-2025 Erythrocyte distribution width (RBC) [Ratio] 15.2 % High 11.6-14.6 [facility] Erythrocyte distribution wid th standard deviationOrdered By: Shahnaz Bishop on 06-11-2025 Erythrocyte distribution width (RBC) [Ratio] 50.3 fl High 35.1-43.9 [facility] Glomerular filtration rate ( GFR) estimation/1.73 sq m using serum, plasma, or whole bOrdered By: Shahnaz Bishop on 06-11-2025 GFR/1.73 sq M.predicted among non-blacks MDRD (S/P/Bld) [Vol rate/Area] 43 mL/min/{1.73_m2} Low >60 [facility] Glucose measurement at [facility] deOrdered By: Phong Solomon on 06-11-2025 Glucose [Mass/Vol] 80 mg/dL 74-106 [facility] Hematocrit Auto (Bld) [Volum e fraction]Ordered By: Shahnaz Bishop on 06-11-2025 Hematocrit (Bld) [Volume fraction] 23.5 % Low 37-47 [facility] Hemoglobin measurementOrdere d By: Shahnaz Bishop on 06-11-2025 Hemoglobin (Bld) [Mass/Vol] 7.6 g/dL Low 12.0-15.0 [facility] Immature granulocytes/100 WB C Auto (Bld)Ordered By: Shahnaz Bishop on 06-11-2025 Immature granulocytes/100 WBC (Bld) 0.400 % 0.0-0.9 [facility] MCV (mean corpuscular volume ) determinationOrdered By: Shahnaz Bishop on 06-11-2025 MCV (RBC) [Entitic vol] 90.4 fL 81-99 [facility] Magnesium measurement (mass/ volume)Ordered By: Shahnaz Bishop on 06-11-2025 Magnesium (Unsp spec) [Mass/Vol] 1.8 mg/dL 1.5-2.2 [facility] Mean corpuscular hemoglobin (MCH) determinationOrdered By: Shahnaz Bishop on 06-11-2025 MCH (RBC) [Entitic mass] 29.2 pg 27.0-32.0 [facility] Monocyte percentageOrdered B y: Shahnaz Bishop on 06-11-2025 Monocytes/100 WBC (Bld) 14.7 % High 0-10 [facility] Neutrophil percentageOrdered By: Shahnaz Bishop on 06-11-2025 Neutrophils/100 WBC (Bld) 67.7 % 47-70 [facility] No Panel InformationOrdered By: Shahnaz Bishop on 06-11-2025 19 U/L <32 [facility] Platelet countOrdered By: Deric Bishop on 06-11-2025 Platelets (Bld) [#/Vol] 167 10*3/uL 150-450 [facility] Potassium measurement (mass/ volume)Ordered By: Shahnaz Bishop on 06-11-2025 Potassium (Unsp spec) [Mass/Vol] 3.0 mmol/L Low 3.3-5.1 [facility] RBC Auto (Bld) [#/Vol]Ordere d By: Shahnaz Bishop on 06-11-2025 RBC (Bld) [#/Vol] 2.60 10*6/uL Low 4.2-5.4 [facility] Serum creatinine measurement (mass/volume)Ordered By: Shahnaz Bishop on 06-11-2025 Creatinine [Mass/Vol] 1.32 mg/dL High 0.70-1.20 [facility] Serum globulin measurementOr dered By: Shahnaz Bishop on 06-11-2025 Globulin (S) [Mass/Vol] 2.3 g/dL 2.2-4.2 [facility] Serum glucose measurement (m ass/volume)Ordered By: Shahnaz Bishop on 06-11-2025 Glucose [Mass/Vol] 58 mg/dL Low 70-99 [facility] Serum or plasma alanine anaya otransferase (ALT) measurementOrdered By: Shahnaz Bishop on 06-11-2025 ALT [Catalytic activity/Vol] 10 U/L <35 [facility] Serum or plasma albumin natalia urement (mass/volume)Ordered By: Shahnaz Bishop on 06-11-2025 Albumin [Mass/Vol] 2.4 g/dL Low 3.4-4.8 [facility] Serum or plasma albumin/glob ulin mass ratioOrdered By: Shahnaz Bishop on 06-11-2025 Albumin/Globulin [Mass ratio] 1.0 {ratio} 0.9-2.4 [facility] Serum or plasma alkaline chelsie sphatase measurementOrdered By: Shahnaz Bishop on 06-11-2025 ALP [Catalytic activity/Vol] 49 U/L 35-104 [facility] Serum or plasma calcium natalia urement (mass/volume)Ordered By: Shahnaz Bishop on 06-11-2025 Calcium [Mass/Vol] 8.2 mg/dL 7.6-11.0 [facility] Serum or plasma urea nitroge n measurement (mass/volume)Ordered By: Shahnaz Bishop on 06-11-2025 Urea nitrogen [Mass/Vol] 53 mg/dL High 4-19 [facility] Sodium levelOrdered By: Wale Bishop on 06-11-2025 Sodium [Moles/Vol] 139 mmol/L 133-145 [facility] Total proteinOrdered By: Lori Bishop on 06-11-2025 Protein [Mass/Vol] 4.7 g/dL Low 5.9-8.4 [facility] White blood cell (WBC) count Ordered By: Shahnaz Bishop on 06-11-2025 WBC (Bld) [#/Vol] 7.0 10*3/uL 4.4-11.0 [facility] Absolute lymphocyte countOrd ered By: Phong Solomon on 06-10-2025 Lymphocytes Auto (Unsp spec) [#/Vol] 0.68 10*3/uL Low 0.83-4.51 [facility] Anaerobic cultureOrdered By: Patel Irene on 06-10-2025 Bacteria identified Anaer cx Nom (Unsp spec) No anaerobic bacteria isolated. [facility] Anion gap in Serum or Plasma Ordered By: Phong Solomon on 06-10-2025 Anion gap [Moles/Vol] 11 mmol/L 5-15 [facility] Automated lymphocyte count a s percentage of total leukocytesOrdered By: Phong Solomon on 06-10-2025 Lymphocytes/100 WBC Auto (Unsp spec) 8.2 % Low 19-41 [facility] BUN/creatinine ratioOrdered By: Phong Solomon on 06-10-2025 Urea nitrogen/Creatinine [Mass ratio] 45.0 mg/mg High 10-20 [facility] Basophil percentageOrdered B y: Phong Solomon on 06-10-2025 Basophils/100 WBC (Bld) 0.4 % 0-1 [facility] Bilirubin Test strip Ql (U)O rdered By: Phong Solomon on 06-10-2025 Bilirubin Ql (U) Negative Negative [facility] Blood cultureOrdered By: Phong Solomon on 06-10-2025 Bacteria identified Cx Nom (Bld) No growth in 5 days. [facility] Bacteria identified Cx Nom (Bld) No growth in 5 days. [facility] COVID-19 virus antigen assay Ordered By: Phong Solomon on 06-10-2025 SARS-CoV-2 (COVID-19) Ag IA.rapid Ql (Resp) [facility] Carbon dioxide, total [Moles /volume] in Central venous bloodOrdered By: Phong Solomon on 06-10-2025 CO2 [Moles/Vol] 22.3 mmol/L 21.0-32.0 [facility] Chloride assayOrdered By: Addy Solomon on 06-10-2025 Chloride [Moles/Vol] 104 mmol/L 98-108 [facility] Clostridium difficile detect ion by polymerase chain reactionOrdered By: Phong Solomon on 06-10-2025 C. difficile DNA MARILYN+probe Ql (Unsp spec) [facility] Eosinophil percentageOrdered By: Phong Solomon on 06-10-2025 Eosinophils/100 WBC (Bld) 0.6 % 0-5 [facility] Erythrocyte distribution wid th ratioOrdered By: Phong Solomon on 06-10-2025 Erythrocyte distribution width (RBC) [Ratio] 14.7 % High 11.6-14.6 [facility] Erythrocyte distribution wid th standard deviationOrdered By: Phong Solomon on 06-10-2025 Erythrocyte distribution width (RBC) [Ratio] 49.3 fl High 35.1-43.9 [facility] Erythrocyte sedimentation ra teOrdered By: Patel Irene on 06-10-2025 ESR (Bld) [Velocity] 28 mm/h 0-30 [facility] Glomerular filtration rate ( GFR) estimation/1.73 sq m using serum, plasma, or whole bOrdered By: Phong Solomon on 06-10-2025 GFR/1.73 sq M.predicted among non-blacks MDRD (S/P/Bld) [Vol rate/Area] 47 mL/min/{1.73_m2} Low >60 [facility] Gram stainOrdered By: Keri Irene on 06-10-2025 Microscopic observation Gram stain Nom (Unsp spec) [facility] Hematocrit Auto (Bld) [Volum e fraction]Ordered By: Phong Solomon on 06-10-2025 Hematocrit (Bld) [Volume fraction] 25.7 % Low 37-47 [facility] Hemoglobin measurementOrdere d By: Phong Solomon on 06-10-2025 Hemoglobin (Bld) [Mass/Vol] 8.3 g/dL Low 12.0-15.0 [facility] Immature granulocytes/100 WB C Auto (Bld)Ordered By: Phong Soloomn 06-10-2025 Immature granulocytes/100 WBC (Bld) 0.400 % 0.0-0.9 [facility] Ketones Test strip Ql (U)Ord ered By: Phong Solomon 06-10-2025 Ketones Ql (U) Negative Negative [facility] MCV (mean corpuscular volume ) determinationOrdered By: Phong Solomon on 06-10-2025 MCV (RBC) [Entitic vol] 91.8 fL 81-99 [facility] Mean corpuscular hemoglobin (MCH) determinationOrdered By: Phong Solomon 06-10-2025 MCH (RBC) [Entitic mass] 29.6 pg 27.0-32.0 [facility] Monocyte percentageOrdered B y: Phong Solomon on 06-10-2025 Monocytes/100 WBC (Bld) 9.4 % 0-10 [facility] Mucus LM Ql (Urine sed)Order ed By: Phong Solomon on 06-10-2025 Mucus Ql (Urine sed) 0 SEEN /hpf [facility] Neutrophil percentageOrdered By: Phong Solomon on 06-10-2025 Neutrophils/100 WBC (Bld) 81.0 % High 47-70 [facility] Nitrite Test strip Ql (U)Ord ered By: Phong Solomon on 06-10-2025 Nitrite Ql (U) Positive High Negative [facility] Platelet countOrdered By: Addy Solomon on 06-10-2025 Platelets (Bld) [#/Vol] 169 10*3/uL 150-450 [facility] Potassium measurement (mass/ volume)Ordered By: Phong Solomon on 06-10-2025 Potassium (Unsp spec) [Mass/Vol] 3.7 mmol/L 3.3-5.1 [facility] Protein Test strip Ql (U)Ord ered By: Phong Solomon on 06-10-2025 Protein Ql (U) 30 mg/dl High Negative [facility] RBC Auto (Bld) [#/Vol]Ordere d By: Phong Solomon on 06-10-2025 RBC (Bld) [#/Vol] 2.80 10*6/uL Low 4.2-5.4 [facility] [place], [place] Respiratory pathogens detect ion panel by molecular detection methodOrdered By: Phong Solomon on 06-10-2025 Respiratory pathogens DNA and RNA panel MARILYN+probe (Resp) [facility] Routine wound cultureOrdered By: Patel Irene on 06-10-2025 Microbial culture, routine Stenotrophomonas maltophilia Abnormal [facility] Microbial culture, routine Meth. resistant Staph. aureus Abnormal [facility] Serum creatinine measurement (mass/volume)Ordered By: Phong Solomon on 06-10-2025 Creatinine [Mass/Vol] 1.22 mg/dL High 0.70-1.20 [facility] Serum glucose measurement (m ass/volume)Ordered By: Phong Solomon on 06-10-2025 Glucose [Mass/Vol] 218 mg/dL High 70-99 [facility] Serum or plasma C reactive p rotein measurement (mass/volume)Ordered By: Patel Irene on 06-10-2025 CRP [Mass/Vol] 242.00 mg/L High 0.0-3.0 [facility] Serum or plasma calcium natalia urement (mass/volume)Ordered By: Phong Solomon on 06-10-2025 Calcium [Mass/Vol] 8.5 mg/dL 7.6-11.0 [facility] Serum or plasma urea nitroge n measurement (mass/volume)Ordered By: Phong Solomon on 06-10-2025 Urea nitrogen [Mass/Vol] 55 mg/dL High 4-19 [facility] Sodium levelOrdered By: Phong Solomon 06-10-2025 Sodium [Moles/Vol] 137 mmol/L 133-145 [facility] Squamous epithelial cells de tection in urine sediment by light microscopyOrdered By: Phong Solomon 06-10-2025 Epithelial cells.squamous LM Ql (Urine sed) 0-5 SEEN /hpf 5-10 [facility] Stool Clostridium difficile detectionOrdered By: Phong Solomon on 06-10-2025 C. difficile Ql (Stl) Toxigenic C. difficile Abnormal [facility] Urine clarityOrdered By: Phong Solomon 06-10-2025 Clarity (U) Sl. Cloudy Clear [facility] Urine color determinationOrd ered By: Phong Solomon 06-10-2025 Color (U) Yellow Yellow [facility] Urine cultureOrdered By: Phong Solomon 06-10-2025 Bacteria identified Cx Nom (U) Enterobacter asburiae Abnormal [facility] Urine glucose detectionOrder ed By: Phong Solomon 06-10-2025 Glucose Ql (U) Normal mg/dl Normal [facility] Urine leukocyte esterase det ection by dipstickOrdered By: Phong Solomon 06-10-2025 Leukocyte esterase Test strip Ql (U) 500 /ul High Negative [facility] Urine pHOrdered By: Phong Solomon 06-10-2025 pH (U) 6.0 [pH] 5.0 - 8.0 [facility] Urine sediment bacteria coun t by microscopy (number/high power field)Ordered By: Phong Solmoon 06-10-2025 Bacteria LM.HPF (Urine sed) [#/Area] 1 /[HPF] None Seen [facility] Urine specific gravity measu rementOrdered By: Phong Solomon 06-10-2025 Specific gravity (U) [Rel density] 1.015 1.002-1.030 [facility] Urine urobilinogen measureme ntOrdered By: Phong Solomon on 06-10-2025 Urobilinogen Ql (U) Normal mg/dl Normal [facility] White blood cell (WBC) count Ordered By: Phong Solomon on 06-10-2025 WBC (Bld) [#/Vol] 8.3 10*3/uL 4.4-11.0 [facility] White blood cell countOrdere d By: Phong Solomon on 06-10-2025 White blood cell count 25-50 SEEN /hpf 0-5 [facility] Absolute lymphocyte countOrd ered By: Phong Solomon on 06-09-2025 Lymphocytes Auto (Unsp spec) [#/Vol] 0.99 10*3/uL 0.83-4.51 [facility] Anion gap in Serum or Plasma Ordered By: Phong Solomon on 06-09-2025 Anion gap [Moles/Vol] 8 mmol/L 5-15 [facility] Automated lymphocyte count a s percentage of total leukocytesOrdered By: Phong Solomon on 06-09-2025 Lymphocytes/100 WBC Auto (Unsp spec) 12.8 % Low 19-41 [facility] BUN/creatinine ratioOrdered By: Phong Solomon on 06-09-2025 Urea nitrogen/Creatinine [Mass ratio] 48.8 mg/mg High 10-20 [facility] Basophil percentageOrdered B y: Phong Solomon on 06-09-2025 Basophils/100 WBC (Bld) 0.4 % 0-1 [facility] Bilirubin, totalOrdered By: Phong Solomon on 06-09-2025 Bilirubin [Mass/Vol] 0.31 mg/dL 0.00-1.30 [facility] Carbon dioxide, total [Moles /volume] in Central venous bloodOrdered By: Phong Solomon on 06-09-2025 CO2 [Moles/Vol] 25.0 mmol/L 21.0-32.0 [facility] Chloride assayOrdered By: Addy Solomon on 06-09-2025 Chloride [Moles/Vol] 108 mmol/L 98-108 [facility] Eosinophil percentageOrdered By: Phong Solomon on 06-09-2025 Eosinophils/100 WBC (Bld) 2.8 % 0-5 [facility] Erythrocyte distribution wid th ratioOrdered By: Phong Solomon 06-09-2025 Erythrocyte distribution width (RBC) [Ratio] 14.5 % 11.6-14.6 [facility] Erythrocyte distribution wid th standard deviationOrdered By: Phong Solomon 06-09-2025 Erythrocyte distribution width (RBC) [Ratio] 48.9 fl High 35.1-43.9 [facility] Glomerular filtration rate ( GFR) estimation/1.73 sq m using serum, plasma, or whole bOrdered By: Phong Solomon 06-09-2025 GFR/1.73 sq M.predicted among non-blacks MDRD (S/P/Bld) [Vol rate/Area] 59 mL/min/{1.73_m2} Low >60 [facility] Glucose measurement at [facility] deOrdered By: Phong Solomon 06-09-2025 Glucose [Mass/Vol] 84 mg/dL 74-106 [facility] Hematocrit Auto (Bld) [Volum e fraction]Ordered By: Phong Solomon 06-09-2025 Hematocrit (Bld) [Volume fraction] 26.5 % Low 37-47 [facility] Hemoglobin A1c percentageOrd ered By: Phong Solomon 06-09-2025 HbA1c (Bld) [Mass fraction] 7.4 % High <5.7 [facility] Hemoglobin measurementOrdere d By: Phong Solomon 06-09-2025 Hemoglobin (Bld) [Mass/Vol] 8.5 g/dL Low 12.0-15.0 [facility] Immature granulocytes/100 WB C Auto (Bld)Ordered By: Phong Solomon 06-09-2025 Immature granulocytes/100 WBC (Bld) 0.800 % 0.0-0.9 [facility] MCV (mean corpuscular volume ) determinationOrdered By: Phong Solomon 06-09-2025 MCV (RBC) [Entitic vol] 92.0 fL 81-99 [facility] Mean corpuscular hemoglobin (MCH) determinationOrdered By: Phong Solomon 06-09-2025 MCH (RBC) [Entitic mass] 29.5 pg 27.0-32.0 [facility] Monocyte percentageOrdered B y: Phong Solomon 06-09-2025 Monocytes/100 WBC (Bld) 11.5 % High 0-10 [facility] Neutrophil percentageOrdered By: Phong Solomon on 06-09-2025 Neutrophils/100 WBC (Bld) 71.7 % High 47-70 [facility] No Panel InformationOrdered By: Phong Solomon on 06-09-2025 18 U/L <32 [facility] Platelet countOrdered By: Addy Solomon on 06-09-2025 Platelets (Bld) [#/Vol] 156 10*3/uL 150-450 [facility] Potassium measurement (mass/ volume)Ordered By: Phong Solomon on 06-09-2025 Potassium (Unsp spec) [Mass/Vol] 4.4 mmol/L 3.3-5.1 [facility] RBC Auto (Bld) [#/Vol]Ordere d By: Phong Solomon on 06-09-2025 RBC (Bld) [#/Vol] 2.88 10*6/uL Low 4.2-5.4 [facility] Serum creatinine measurement (mass/volume)Ordered By: Phong Solomon on 06-09-2025 Creatinine [Mass/Vol] 1.00 mg/dL 0.70-1.20 [facility] Serum globulin measurementOr dered By: Phong Solomon 06-09-2025 Globulin (S) [Mass/Vol] 2.4 g/dL 2.2-4.2 [facility] Serum glucose measurement (m ass/volume)Ordered By: Phong Solomon 06-09-2025 Glucose [Mass/Vol] 84 mg/dL 70-99 [facility] Serum or plasma alanine anaya otransferase (ALT) measurementOrdered By: Phong Solomon on 06-09-2025 ALT [Catalytic activity/Vol] 11 U/L <35 [facility] Serum or plasma albumin natalia urement (mass/volume)Ordered By: Phong Solomon 06-09-2025 Albumin [Mass/Vol] 2.7 g/dL Low 3.4-4.8 [facility] Serum or plasma albumin/glob ulin mass ratioOrdered By: Phong Solomon 06-09-2025 Albumin/Globulin [Mass ratio] 1.1 {ratio} 0.9-2.4 [facility] Serum or plasma alkaline chelsie sphatase measurementOrdered By: Phong Solomon on 06-09-2025 ALP [Catalytic activity/Vol] 69 U/L 35-104 [facility] Serum or plasma calcium natalia urement (mass/volume)Ordered By: Phong Solomon on 06-09-2025 Calcium [Mass/Vol] 8.8 mg/dL 7.6-11.0 [facility] Serum or plasma urea nitroge n measurement (mass/volume)Ordered By: Phong Solomon on 06-09-2025 Urea nitrogen [Mass/Vol] 49 mg/dL High 4-19 [facility] Sodium levelOrdered By: Phong Solomon on 06-09-2025 Sodium [Moles/Vol] 141 mmol/L 133-145 [facility] Total proteinOrdered By: Phong Solomon on 06-09-2025 Protein [Mass/Vol] 5.1 g/dL Low 5.9-8.4 [facility] White blood cell (WBC) count Ordered By: Phong Solomon 06-09-2025 WBC (Bld) [#/Vol] 7.7 10*3/uL 4.4-11.0 [facility] Glucose measurement at [facility] deOrdered By: Phong Solomon on 06-07-2025 Glucose [Mass/Vol] 145 mg/dL High 74-106 [facility] Glucose measurement at [facility] deOrdered By: Ortega Yanez on 06-05-2025 Glucose [Mass/Vol] 108 mg/dL High 74-106 [facility] Hematocrit Auto (Bld) [Volum e fraction]Ordered By: Phong Solomon on 06-03-2025 Hematocrit (Bld) [Volume fraction] 28.0 % Low 37-47 [facility] Hemoglobin measurementOrdere d By: Phong Solomon on 06-03-2025 Hemoglobin (Bld) [Mass/Vol] 9.3 g/dL Low 12.0-15.0 [facility] Stool gastrointestinal hemog lobin detection by immunologic methodOrdered By: Phong Solomon on 06-03-2025 Lower GI hemoglobin IA Ql (Stl) Positive Abnormal [facility] Absolute lymphocyte countOrd ered By: Phong Solomon on 06-02-2025 Lymphocytes Auto (Unsp spec) [#/Vol] 1.32 10*3/uL 0.83-4.51 [facility] Anion gap in Serum or Plasma Ordered By: Phong Solomon on 06-02-2025 Anion gap [Moles/Vol] 11 mmol/L 5-15 [facility] Automated lymphocyte count a s percentage of total leukocytesOrdered By: Phong Solomon on 06-02-2025 Lymphocytes/100 WBC Auto (Unsp spec) 35.1 % 19-41 [facility] BUN/creatinine ratioOrdered By: Phong Solomon on 06-02-2025 Urea nitrogen/Creatinine [Mass ratio] 62.0 mg/mg High 10-20 [facility] Basophil percentageOrdered B y: Phong Solomon on 06-02-2025 Basophils/100 WBC (Bld) 1.3 % High 0-1 [facility] Blood manual differential co mment interpretation (narrative result)Ordered By: Phong Solomon on 06-02-2025 Manual differential comment Dionicio (Bld) [Interp] SCANNED [facility] Carbon dioxide, total [Moles /volume] in Central venous bloodOrdered By: Phong Solomon on 06-02-2025 CO2 [Moles/Vol] 21.2 mmol/L 21.0-32.0 [facility] Chloride assayOrdered By: Addy Solomon on 06-02-2025 Chloride [Moles/Vol] 105 mmol/L 98-108 [facility] Eosinophil percentageOrdered By: Phong Solomon on 06-02-2025 Eosinophils/100 WBC (Bld) 3.2 % 0-5 [facility] Erythrocyte distribution wid th ratioOrdered By: Phong Solomon on 06-02-2025 Erythrocyte distribution width (RBC) [Ratio] 14.8 % High 11.6-14.6 [facility] Erythrocyte distribution wid th standard deviationOrdered By: Phong Solomon on 06-02-2025 Erythrocyte distribution width (RBC) [Ratio] 47.8 fl High 35.1-43.9 [facility] Erythrocyte morphology asses smentOrdered By: Phong Solomon on 06-02-2025 RBC morphology finding Nom (Bld) NORM C+C NORMAL NORM C&C [facility] Glomerular filtration rate ( GFR) estimation/1.73 sq m using serum, plasma, or whole bOrdered By: Phong Solomon on 06-02-2025 GFR/1.73 sq M.predicted among non-blacks MDRD (S/P/Bld) [Vol rate/Area] 47 mL/min/{1.73_m2} Low >60 [facility] Immature granulocytes/100 WB C Auto (Bld)Ordered By: Phong Solomon on 06-02-2025 Immature granulocytes/100 WBC (Bld) 0.300 % 0.0-0.9 [facility] MCV (mean corpuscular volume ) determinationOrdered By: Phong Solomon on 06-02-2025 MCV (RBC) [Entitic vol] 89.5 fL 81-99 [facility] Mean corpuscular hemoglobin (MCH) determinationOrdered By: Phong Solomon on 06-02-2025 MCH (RBC) [Entitic mass] 29.3 pg 27.0-32.0 [facility] Monocyte percentageOrdered B y: Phong Solomon on 06-02-2025 Monocytes/100 WBC (Bld) 7.4 % 0-10 [facility] Neutrophil percentageOrdered By: Phong Solomon on 06-02-2025 Neutrophils/100 WBC (Bld) 52.7 % 47-70 [facility] Platelet countOrdered By: Addy Solomon on 06-02-2025 Platelets (Bld) [#/Vol] 109 10*3/uL Low 150-450 [facility] Platelet estimateOrdered By: Phong Solomon on 06-02-2025 Platelets LM Ql (Bld) SLT DEC ADEQ [facility] Potassium measurement (mass/ volume)Ordered By: Phong Solomon on 06-02-2025 Potassium (Unsp spec) [Mass/Vol] 4.5 mmol/L 3.3-5.1 [facility] RBC Auto (Bld) [#/Vol]Ordere d By: Phong Solomon on 06-02-2025 RBC (Bld) [#/Vol] 2.66 10*6/uL Low 4.2-5.4 [facility] Serum creatinine measurement (mass/volume)Ordered By: Phong Solomon on 06-02-2025 Creatinine [Mass/Vol] 1.22 mg/dL High 0.70-1.20 [facility] Serum glucose measurement (m ass/volume)Ordered By: Phong Solomon on 06-02-2025 Glucose [Mass/Vol] 181 mg/dL High 70-99 [facility] Serum or plasma calcium natalia urement (mass/volume)Ordered By: Phong Solomon on 06-02-2025 Calcium [Mass/Vol] 9.0 mg/dL 7.6-11.0 [facility] Serum or plasma urea nitroge n measurement (mass/volume)Ordered By: Phong Solomon on 06-02-2025 Urea nitrogen [Mass/Vol] 76 mg/dL High 4-19 [facility] Sodium levelOrdered By: Phong Solomon on 06-02-2025 Sodium [Moles/Vol] 137 mmol/L 133-145 [facility] White blood cell (WBC) count Ordered By: Phong Solomon on 06-02-2025 WBC (Bld) [#/Vol] 3.8 10*3/uL Low 4.4-11.0 [facility] Anion gap in Serum or Plasma Ordered By: Christos Morrow on 06-01-2025 Anion gap [Moles/Vol] 12 mmol/L 5-15 [facility] BUN/creatinine ratioOrdered By: Christos Morrow on 06-01-2025 Urea nitrogen/Creatinine [Mass ratio] 56.9 mg/mg High 10-20 [facility] Bilirubin, totalOrdered By: Christos Morrow on 06-01-2025 Bilirubin [Mass/Vol] 0.59 mg/dL 0.00-1.30 [facility] Blood platelets count (numbe r/volume)Ordered By: Christos Morrow on 06-01-2025 Platelets (Bld) [#/Vol] 155 10*3/uL 150-450 [facility] Carbon dioxide, total [Moles /volume] in Central venous bloodOrdered By: Christos Morrow on 06-01-2025 CO2 [Moles/Vol] 21.5 mmol/L 21.0-32.0 [facility] Chloride assayOrdered By: Low Morrow on 06-01-2025 Chloride [Moles/Vol] 105 mmol/L 98-108 [facility] Erythrocyte distribution wid th ratioOrdered By: Christos Morrow on 06-01-2025 Erythrocyte distribution width (RBC) [Ratio] 15.1 % High 11.6-14.6 [facility] Glomerular filtration rate ( GFR) estimation/1.73 sq m using serum, plasma, or whole bOrdered By: Christos Morrow on 06-01-2025 GFR/1.73 sq M.predicted among non-blacks MDRD (S/P/Bld) [Vol rate/Area] 47 mL/min/{1.73_m2} Low >60 [facility] Glucose measurement at bedsi deOrdered By: Christos Morrow on 06-01-2025 Glucose [Mass/Vol] 191 mg/dL High 74-106 [facility] Hematocrit Auto (Bld) [Volum e fraction]Ordered By: Christos Morrow on 06-01-2025 Hematocrit (Bld) [Volume fraction] 27.9 % Low 37-47 [facility] Hemoglobin measurementOrdere d By: Christos Morrow on 06-01-2025 Hemoglobin (Bld) [Mass/Vol] 9.0 g/dL Low 12.0-15.0 [facility] MCV (mean corpuscular volume ) determinationOrdered By: Christos Morrow on 06-01-2025 MCV (RBC) [Entitic vol] 90.6 fL 81-99 [facility] Magnesium measurement (mass/ volume)Ordered By: Christos Morrow 06-01-2025 Magnesium (Unsp spec) [Mass/Vol] 1.8 mg/dL 1.5-2.2 [facility] Mean corpuscular hemoglobin (MCH) determinationOrdered By: Christos Morrow on 06-01-2025 MCH (RBC) [Entitic mass] 29.2 pg 27.0-32.0 [facility] No Panel InformationOrdered By: Christos Morrow on 06-01-2025 20 U/L <32 [facility] Potassium measurement (mass/ volume)Ordered By: Christos Morrow 06-01-2025 Potassium (Unsp spec) [Mass/Vol] 4.6 mmol/L 3.3-5.1 [facility] RBC Auto (Bld) [#/Vol]Ordere d By: Christos Morrow on 06-01-2025 RBC (Bld) [#/Vol] 3.08 10*6/uL Low 4.2-5.4 [facility] RDWOrdered By: Christos Morrow on 06-01-2025 RDW 49.8 fl High 35.1-43.9 [facility] Serum creatinine measurement (mass/volume)Ordered By: Christos Morrow on 06-01-2025 Creatinine [Mass/Vol] 1.22 mg/dL High 0.70-1.20 [facility] Serum globulin measurementOr dered By: Christos Morrow on 06-01-2025 Globulin (S) [Mass/Vol] 3.0 g/dL 2.2-4.2 [facility] Serum glucose measurement (m ass/volume)Ordered By: Christos Morrow on 06-01-2025 Glucose [Mass/Vol] 208 mg/dL High 70-99 [facility] Serum or plasma alanine anaya otransferase (ALT) measurementOrdered By: Christos Morrow on 06-01-2025 ALT [Catalytic activity/Vol] 15 U/L <35 [facility] Serum or plasma albumin natalia urement (mass/volume)Ordered By: Christos Morrow on 06-01-2025 Albumin [Mass/Vol] 2.7 g/dL Low 3.4-4.8 [facility] Serum or plasma albumin/glob ulin mass ratioOrdered By: Christos Morrow on 06-01-2025 Albumin/Globulin [Mass ratio] 0.9 {ratio} 0.9-2.4 [facility] Serum or plasma alkaline chelsie sphatase measurementOrdered By: Christos Morrow on 06-01-2025 ALP [Catalytic activity/Vol] 57 U/L 35-104 [facility] Serum or plasma calcium natalia urement (mass/volume)Ordered By: Christos Morrow on 06-01-2025 Calcium [Mass/Vol] 9.4 mg/dL 7.6-11.0 [facility] Serum or plasma urea nitroge n measurement (mass/volume)Ordered By: Christos Morrow on 06-01-2025 Urea nitrogen [Mass/Vol] 69 mg/dL High 4-19 [facility] Sodium levelOrdered By: Noe Morrow on 06-01-2025 Sodium [Moles/Vol] 138 mmol/L 133-145 [facility] Surgical pathology reportOrd ered By: Rachell Cruz on 06-01-2025 Surgical pathology study [facility] Total proteinOrdered By: Delfino bello Gigiperlita on 06-01-2025 Protein [Mass/Vol] 5.7 g/dL Low 5.9-8.4 [facility] White blood cell (WBC) count Ordered By: Christos Morrow on 06-01-2025 WBC (Bld) [#/Vol] 6.1 10*3/uL 4.4-11.0 [facility] Absolute lymphocyte countOrd ered By: White on 05-31-2025 Lymphocytes Auto (Unsp spec) [#/Vol] 1.18 10*3/uL 0.83-4.51 [facility] Automated lymphocyte count a s percentage of total leukocytesOrdered By: White on 05-31-2025 Lymphocytes/100 WBC Auto (Unsp spec) 24.4 % 19-41 [facility] Basophil percentageOrdered B y: White on 05-31-2025 Basophils/100 WBC (Bld) 0.8 % 0-1 [facility] Eosinophil percentageOrdered By: White on 05-31-2025 Eosinophils/100 WBC (Bld) 3.1 % 0-5 [facility] Immature granulocytes/100 WB C Auto (Bld)Ordered By: White on 05-31-2025 Immature granulocytes/100 WBC (Bld) 1.000 % High 0.0-0.9 [facility] Monocyte percentageOrdered B y: White on 05-31-2025 Monocytes/100 WBC (Bld) 4.6 % 0-10 [facility] Neutrophil percentageOrdered By: White on 05-31-2025 Neutrophils/100 WBC (Bld) 66.1 % 47-70 [facility] Urine Cultureon 05-29-2025 URC Presumptive C albica ns Dow Count 11,000-25,000 Normal [facility] Comment on above: Performed By: #### M 100.2200 ####[facility] [address] [place], [place], [address] Activated partial thrombopla stin time (aPTT) in platelet poor plasma by coagulation aOrdered By: Abena Fiore on 07-10-2025 aPTT Coag (PPP) [Time] 63.1 s High 24.1-36.2 [facility] Basic Metabolic Profile (BMP )on 05-28-2025 BUN Normal 4-19 [facility] Comment on above: Result Comment: Canc elled via OM: Order edited - Discontinuing original order Performed By: #### L 500.2500 ####[facility] [address] [place], [address] BUN/CRE Normal 10-20 [facility] Comment on above: Result Comment: Canc elled via OM: Order edited - Discontinuing original order Performed By: #### L 500.2500 ####[facility] [address] [place], [address] Calcium Normal 7.6-11.0 [facility] Comment on above: Result Comment: Canc elled via OM: Order edited - Discontinuing original order Performed By: #### L 500.2500 ####[facility] [address] [place], [address] CL Normal 98-108 [facility] Comment on above: Result Comment: Canc elled via OM: Order edited - Discontinuing original order Performed By: #### L 500.2500 ####[facility] [address] [place], [address] CO2 Normal 21.0-32.0 [facility] Comment on above: Result Comment: Canc elled via OM: Order edited - Discontinuing original order Performed By: #### L 500.2500 ####[facility] [address] [place], [address] CREAT,SERUM Normal 0.70-1.20 [facility] Comment on above: Result Comment: Canc elled via OM: Order edited - Discontinuing original order Performed By: #### L 500.2500 ####[facility] [address] [place], [address] eGFR Normal >60 [facility] Comment on above: Result Comment: Canc elled via OM: Order edited - Discontinuing original order Performed By: #### L 500.2500 ####[facility] [address] [place], [address] GAP Normal 5-15 [facility] Comment on above: Result Comment: Canc elled via OM: Order edited - Discontinuing original order Performed By: #### L 500.2500 ####[facility] [address] [place], [address] GLU Normal 70-99 [facility] Comment on above: Result Comment: Canc elled via OM: Order edited - Discontinuing original order Performed By: #### L 500.2500 ####[facility] [address] [place], [address] Potassium Normal 3.3-5.1 [facility] Comment on above: Result Comment: Canc elled via OM: Order edited - Discontinuing original order Performed By: #### L 500.2500 ####[facility] [address] [place], [address] Basic Metabolic Profile (BMP) Normal 133-145 [facility] Comment on above: Result Comment: Canc elled via OM: Order edited - Discontinuing original order Performed By: #### L 500.2500 ####[facility] [address] [place], [address] Bedside Glucoseon 05-28-2025 FINGERSTICK GLU 186 mg/dL High 74-106 [facility] Comment on above: Result Comment: JEREMIAS GEMENT OF PATIENT CARE PER NURSING PROTOCOL Performed By: #### L 501.080 ####[facility] [address] [place], [address] FINGERSTICK GLU 184 mg/dL High 74-106 [facility] Comment on above: Result Comment: JEREMIAS GEMENT OF PATIENT CARE PER NURSING PROTOCOL Performed By: #### L 501.080 ####[facility] [address] [place], [address] FINGERSTICK GLU 220 mg/dL High 74-106 [facility] Comment on above: Result Comment: JEREMIAS PADILLA OF PATIENT CARE PER NURSING PROTOCOL Performed By: #### L 501.080 ####[facility] [address] [place], [address] CBC W/Diff, Automatedon 07-1 0-2024 Absolute Lymph 1.22 X10 3/uL Normal 0.83-4.51 [facility] Comment on above: Performed By: #### L 300.4310, L100.0100 ####[facility] [address] [place], [address] Absolute Neut 7.6 X10 3/uL Normal 2.0-7.7 [facility] Comment on above: Performed By: #### L 300.4310, L100.0100 ####[facility] [address] [place], [address] Basophils/100 WBC (Bld) 0.3 % Normal 0-1 [facility] Comment on above: Performed By: #### L 300.4310, L100.0100 ####[facility] [address] [place], [address] Eosinophils/100 WBC (Bld) 0.7 % Normal 0-5 [facility] Comment on above: Performed By: #### L 300.4310, L100.0100 ####[facility] [address] [place], [address] Erythrocyte distribution width (RBC) [Ratio] 16.1 % High 11.6-14.6 [facility] Comment on above: Performed By: #### L 300.4310, L100.0100 ####[facility] [address] [place], [address] Hematocrit (Bld) [Volume fraction] 23.0 % Low 37-47 [facility] Comment on above: Performed By: #### L 300.4310, L100.0100 ####[facility] [address] [place], [address] Hemoglobin (Bld) [Mass/Vol] 7.3 g/dL Low 12.0-15.0 [facility] Comment on above: Performed By: #### L 300.4310, L100.0100 ####[facility] [address] [place], [address] IG% 2.100 High 0.0-0.9 [facility] Comment on above: Result Comment: IG% - Immature Granulocytes (promyelocytes, myelocytes andmetamyelocytes) > 1% indicates that a LEFT SHIFT is Present. Performed By: #### L 300.4310, L100.0100 ####[facility] [address] [place], [address] Lymphocytes/100 WBC (Bld) 12.6 % Low 19-41 [facility] Comment on above: Performed By: #### L 300.4310, L100.0100 ####[facility] [address] [place], [address] MCH (RBC) [Entitic mass] 29.1 pg Normal 27.0-32.0 [facility] Comment on above: Performed By: #### L 300.4310, L100.0100 ####[facility] [address] [place], [address] MCHC (RBC) [Mass/Vol] 31.7 g/dL Low 32-36 [facility] Comment on above: Performed By: #### L 300.4310, L100.0100 ####[facility] [address] [place], [address] MCV (RBC) [Entitic vol] 91.6 fL Normal 81-99 [facility] Comment on above: Performed By: #### L 300.4310, L100.0100 ####[facility] [address] [place], [address] Monocytes/100 WBC (Bld) 6.5 % Normal 0-10 [facility] Comment on above: Performed By: #### L 300.4310, L100.0100 ####[facility] [address] [place], [address] Neutrophils/100 WBC (Bld) 77.8 % High 47-70 [facility] Comment on above: Performed By: #### L 300.4310, L100.0100 ####[facility] [address] [place], [address] Nucleated RBC (Bld) [#/Vol] 0 10*3/uL Normal 0-5 [facility] Comment on above: Performed By: #### L 300.4310, L100.0100 ####[facility] [address] [place], [address] Platelet mean volume (Bld) [Entitic vol] 9.8 fL Normal 6.2-12.0 [facility] Comment on above: Performed By: #### L 300.4310, L100.0100 ####[facility] [address] [place], [address] Platelets (Bld) [#/Vol] 173 10*3/uL Normal 150-450 [facility] Comment on above: Performed By: #### L 300.4310, L100.0100 ####[facility] [address] [place], [address] RBC (Bld) [#/Vol] 2.51 10*6/uL Low 4.2-5.4 [facility] Comment on above: Performed By: #### L 300.4310, L100.0100 ####[facility] [address] [place], [address] RDW SD 54.3 fl High 35.1-43.9 [facility] Comment on above: Performed By: #### L 300.4310, L100.0100 ####[facility] [address] [place], [address] WBC (Bld) [#/Vol] 9.7 10*3/uL Normal 4.4-11.0 [facility] Comment on above: Performed By: #### L 300.4310, L100.0100 ####[facility] [address] [place], [address] HH, Hemoglobin AND Hematocri ton 05-28-2025 Hematocrit (Bld) [Volume fraction] 29.9 % Low 37-47 [facility] Comment on above: Order Comment: Comme nts: 1 hour following PRBC completion. Performed By: #### L 100.0600 ####[facility] [address] [place], [address] Hemoglobin (Bld) [Mass/Vol] 9.6 g/dL Low 12.0-15.0 [facility] Comment on above: Order Comment: Comme nts: 1 hour following PRBC completion. Performed By: #### L 100.0600 ####[facility] [address] [place], [address] Partial Thromboplast Timeon 05-28-2025 aPTT Coag (Bld) [Time] 63.1 s High 24.1-36.2 [facility] Comment on above: Performed By: #### L 300.4310, L100.0100 ####[facility] [address] [place], [address] Basic Metabolic Profile (BMP )on 05-27-2025 BUN/CRE 32.6 RATIO High 10-20 [facility] Comment on above: Performed By: #### L 100.0100, L500.2500 ####[facility] [address] [place], [address] Calcium [Mass/Vol] 8.5 mg/dL Normal 7.6-11.0 [facility] Comment on above: Performed By: #### L 100.0100, L500.2500 ####[facility] [address] [place], [address] Chloride [Moles/Vol] 108 mmol/L Normal 98-108 [facility] Comment on above: Performed By: #### L 100.0100, L500.2500 ####[facility] [address] [place], [address] CO2 [Moles/Vol] 19.3 mmol/L Low 21.0-32.0 [facility] Comment on above: Performed By: #### L 100.0100, L500.2500 ####[facility] [address] [place], [address] Creatinine [Mass/Vol] 1.09 mg/dL Normal 0.70-1.20 [facility] Comment on above: Performed By: #### L 100.0100, L500.2500 ####[facility] [address] [place], [address] ECRCL 47.19 ml/min Low 50-250 [facility] Comment on above: Performed By: #### L 100.0100, L500.2500 ####[facility] [address] [place], [address] GAP 14 Normal 5-15 [facility] Comment on above: Performed By: #### L 100.0100, L500.2500 ####[facility] [address] [place], [address] GFR/1.73 sq M.predicted among non-blacks MDRD (S/P/Bld) [Vol rate/Area] 54 mL/min/{1.73_m2} Low >60 [facility] Comment on above: Result Comment: mL/m in/1.73m2 CKD-EPI Creatinine Equation (2020) Performed By: #### L 100.0100, L500.2500 ####[facility] [address] [place], [address] Glucose [Mass/Vol] 208 mg/dL High 70-99 [facility] Comment on above: Performed By: #### L 100.0100, L500.2500 ####[facility] [address] [place], [address] Potassium [Moles/Vol] 4.9 mmol/L Normal 3.3-5.1 [facility] Comment on above: Performed By: #### L 100.0100, L500.2500 ####[facility] [address] [place], [address] Sodium [Moles/Vol] 141 mmol/L Normal 133-145 [facility] Comment on above: Performed By: #### L 100.0100, L500.2500 ####[facility] [address] [place], [address] Urea nitrogen [Mass/Vol] 36 mg/dL High 4-19 [facility] Comment on above: Performed By: #### L 100.0100, L500.2500 ####[facility] [address] [place], [address] Bedside Glucoseon 05-27-2025 FINGERSTICK GLU 226 mg/dL High 74-106 [facility] Comment on above: Result Comment: JEREMIAS GEMENT OF PATIENT CARE PER NURSING PROTOCOL Performed By: #### L 501.080 ####[facility] [address] [place], [address] FINGERSTICK GLU 264 mg/dL High 74-106 [facility] Comment on above: Result Comment: JEREMIAS GEMENT OF PATIENT CARE PER NURSING PROTOCOL Performed By: #### L 501.080 ####[facility] [address] [place], [address] FINGERSTICK GLU 237 mg/dL High 74-106 [facility] Comment on above: Result Comment: JEREMIAS GEMENT OF PATIENT CARE PER NURSING PROTOCOL Performed By: #### L 501.080 ####[facility] [address] [place], [address] FINGERSTICK GLU 221 mg/dL High 74-106 [facility] Comment on above: Result Comment: JEREMIAS GEMENT OF PATIENT CARE PER NURSING PROTOCOL Performed By: #### L 501.080 ####[facility] [address] [place], [address] CBC W/Diff, Automatedon 07-0 9-2024 Absolute Lymph 0.96 X10 3/uL Normal 0.83-4.51 [facility] Comment on above: Performed By: #### L 100.0100, L500.2500 ####[facility] [address] [place], [address] Absolute Neut 11.0 X10 3/uL High 2.0-7.7 [facility] Comment on above: Performed By: #### L 100.0100, L500.2500 ####[facility] [address] [place], [address] Basophils/100 WBC (Bld) 0.4 % Normal 0-1 [facility] Comment on above: Performed By: #### L 100.0100, L500.2500 ####[facility] [address] [place], [address] Eosinophils/100 WBC (Bld) 0.1 % Normal 0-5 [facility] Comment on above: Performed By: #### L 100.0100, L500.2500 ####[facility] [address] [place], [address] Erythrocyte distribution width (RBC) [Ratio] 15.9 % High 11.6-14.6 [facility] Comment on above: Performed By: #### L 100.0100, L500.2500 ####[facility] [address] [place], [address] Hematocrit (Bld) [Volume fraction] 26.6 % Low 37-47 [facility] Comment on above: Performed By: #### L 100.0100, L500.2500 ####[facility] [address] [place], [address] Hemoglobin (Bld) [Mass/Vol] 8.5 g/dL Low 12.0-15.0 [facility] Comment on above: Performed By: #### L 100.0100, L500.2500 ####[facility] [address] [place], [address] IG% 2.600 High 0.0-0.9 [facility] Comment on above: Result Comment: IG% - Immature Granulocytes (promyelocytes, myelocytes andmetamyelocytes) > 1% indicates that a LEFT SHIFT is Present. Performed By: #### L 100.0100, L500.2500 ####[facility] [address] [place], [address] Lymphocytes/100 WBC (Bld) 7.3 % Low 19-41 [facility] Comment on above: Performed By: #### L 100.0100, L500.2500 ####[facility] [address] [place], [address] MCH (RBC) [Entitic mass] 29.0 pg Normal 27.0-32.0 [facility] Comment on above: Performed By: #### L 100.0100, L500.2500 ####[facility] [address] [place], [address] MCHC (RBC) [Mass/Vol] 32.0 g/dL Normal 32-36 [facility] Comment on above: Performed By: #### L 100.0100, L500.2500 ####[facility] [address] [place], [address] MCV (RBC) [Entitic vol] 90.8 fL Normal 81-99 [facility] Comment on above: Performed By: #### L 100.0100, L500.2500 ####[facility] [address] [place], [address] Monocytes/100 WBC (Bld) 5.8 % Normal 0-10 [facility] Comment on above: Performed By: #### L 100.0100, L500.2500 ####[facility] [address] [place], [address] Neutrophils/100 WBC (Bld) 83.8 % High 47-70 [facility] Comment on above: Performed By: #### L 100.0100, L500.2500 ####[facility] [address] [place], [address] Nucleated RBC (Bld) [#/Vol] 0 10*3/uL Normal 0-5 [facility] Comment on above: Performed By: #### L 100.0100, L500.2500 ####[facility] [address] [place], [address] Platelet mean volume (Bld) [Entitic vol] 9.9 fL Normal 6.2-12.0 [facility] Comment on above: Performed By: #### L 100.0100, L500.2500 ####[facility] [address] [place], [address] Platelets (Bld) [#/Vol] 239 10*3/uL Normal 150-450 [facility] Comment on above: Performed By: #### L 100.0100, L500.2500 ####[facility] [address] [place], [address] RBC (Bld) [#/Vol] 2.93 10*6/uL Low 4.2-5.4 [facility] Comment on above: Performed By: #### L 100.0100, L500.2500 ####[facility] [address] [place], [address] RDW SD 52.5 fl High 35.1-43.9 [facility] Comment on above: Performed By: #### L 100.0100, L500.2500 ####[facility] [address] [place], [address] WBC (Bld) [#/Vol] 13.2 10*3/uL High 4.4-11.0 [facility] Comment on above: Performed By: #### L 100.0100, L500.2500 ####[facility] [address] [place], [address] MR/AKNELXEA4dt 05-27-2025 MR/POSTOPAN2 Normal [facility] Prothrombin Time w/INRon INR Coag (PPP) [Relative time] 1.1 {INR} Normal [facility] Comment on above: Performed By: #### L 300.3900 ####[facility] [address] [place], [address] PT Coag (PPP) [Time] 14.5 s Normal 11.7-14.9 [facility] Comment on above: Performed By: #### L 300.3900 ####[facility] [address] [place], [address] Prothrombin timeOrdered By: Russell Clement on 05-27-2025 PT Coag (PPP) [Time] 14.5 s 11.7-14.9 [facility] ACT Activated Clotting Timeo n 05-26-2025 ACTk CLOT TIME 245 sec High 74-137 [facility] Comment on above: Performed By: #### L 9100.0100 ####[facility] [address] [place], [address] ACTk CLOT TIME 112 sec Normal 74-137 [facility] Comment on above: Performed By: #### L 9100.0100 ####[facility] [address] [place], [address] Amorphous sediment detection in urine sediment by light microscopyOrdered By: Maddie White on 05-26-2025 Amorphous sediment LM Ql (Urine sed) 2+ [facility] Anion gap in Serum or Plasma Ordered By: Russell Clement on 05-26-2025 Anion gap [Moles/Vol] 12 mmol/L 5-15 [facility] BRCon 05-26-2025 RC Normal [facility] Comment on above: Result Comment: [id number] AP RC TRANSFUSED 05/28/25 [id number] AP RC PRSMD TRFSD 05/26/25 1123 Performed By: #### L 100.0500, [facility], L500.2500, BTS ####[facility] [address] [place], [address] BUN/creatinine ratioOrdered By: Russell Clement on 05-26-2025 Urea nitrogen/Creatinine [Mass ratio] 34.0 mg/mg High 10-20 [facility] Basic Metabolic Profile (BMP )on 05-26-2025 BUN/CRE 34.0 RATIO High 1020 [facility] Comment on above: Performed By: #### L 100.0500, [facility], L500.2500, BTS ####[facility] [address] [place], [address] Calcium [Mass/Vol] 9.3 mg/dL Normal 7.6-11.0 [facility] Comment on above: Performed By: #### L 100.0500, [facility], L500.2500, BTS ####[facility] [address] [place], [address] Chloride [Moles/Vol] 109 mmol/L High 98-108 [facility] Comment on above: Performed By: #### L 100.0500, BR, L500.2500, BTS ####[facility] [address] [place], [address] CO2 [Moles/Vol] 20.2 mmol/L Low 21.0-32.0 [facility] Comment on above: Performed By: #### L 100.0500, BR, L500.2500, BTS ####[facility] [address] [place], [address] Creatinine [Mass/Vol] 1.16 mg/dL Normal 0.70-1.20 [facility] Comment on above: Performed By: #### L 100.0500, [facility], L500.2500, BTS ####[facility] [address] [place], [address] ECRCL 44.34 ml/min Low 50-250 [facility] Comment on above: Performed By: #### L 100.0500, BR, L500.2500, BTS ####[facility] [address] [place], [address] GAP 12 Normal 5-15 [facility] Comment on above: Performed By: #### L 100.0500, BR, L500.2500, BTS ####[facility] [address] [place], [address] GFR/1.73 sq M.predicted among non-blacks MDRD (S/P/Bld) [Vol rate/Area] 50 mL/min/{1.73_m2} Low >60 [facility] Comment on above: Result Comment: mL/m in/1.73m2 CKD-EPI Creatinine Equation (2020) Performed By: #### L 100.0500, BRC, L500.2500, BTS ####[facility] [address] [place], [address] Glucose [Mass/Vol] 119 mg/dL High 70-99 [facility] Comment on above: Performed By: #### L 100.0500, [facility], L500.2500, BTS ####[facility] [address] [place], [address] Potassium [Moles/Vol] 4.3 mmol/L Normal 3.3-5.1 [facility] Comment on above: Result Comment: Hemo lysis present, Results??could be affected.?? Performed By: #### L 100.0500, BR, L500.2500, BTS ####[facility] [address] [place], [address] Sodium [Moles/Vol] 141 mmol/L Normal 133-145 [facility] Comment on above: Performed By: #### L 100.0500, [facility], L500.2500, BTS ####[facility] [address] [place], [address] Urea nitrogen [Mass/Vol] 39 mg/dL High 4-19 [facility] Comment on above: Performed By: #### L 100.0500, [facility], L500.2500, BTS ####[facility] [address] [place], [address] Bedside Glucoseon 05-26-2025 FINGERSTICK GLU 182 mg/dL High 74-106 [facility] Comment on above: Result Comment: JEREMIAS GEMENT OF PATIENT CARE PER NURSING PROTOCOL Performed By: #### L 501.080 ####[facility] [address] [place], [address] FINGERSTICK GLU 193 mg/dL High 74-106 [facility] Comment on above: Result Comment: JEREMIAS GEMENT OF PATIENT CARE PER NURSING PROTOCOL Performed By: #### L 501.080 ####[facility] [address] [place], [address] FINGERSTICK GLU 116 mg/dL High 74-106 [facility] Comment on above: Result Comment: JEREMIAS PADILLA OF PATIENT CARE PER NURSING PROTOCOL Performed By: #### L 501.080 ####[facility] [address] [place], [address] Bilirubin Test strip Ql (U)O rdered By: Maddie Merchant on 05-26-2025 Bilirubin Ql (U) Negative Negative [facility] CBC W/Diff, Automatedon Absolute Lymph 0.83 X10 3/uL Normal 0.83-4.51 [facility] Comment on above: Performed By: #### L 100.0100 ####[facility] [address] [place], [address] Absolute Neut 13.9 X10 3/uL High 2.0-7.7 [facility] Comment on above: Performed By: #### L 100.0100 ####[facility] [address] [place], [address] Basophils/100 WBC (Bld) 0.6 % Normal 0-1 [facility] Comment on above: Performed By: #### L 100.0100 ####[facility] [address] [place], [address] Eosinophils/100 WBC (Bld) 0.4 % Normal 0-5 [facility] Comment on above: Performed By: #### L 100.0100 ####[facility] [address] [place], [address] Erythrocyte distribution width (RBC) [Ratio] 15.4 % High 11.6-14.6 [facility] Comment on above: Performed By: #### L 100.0100 ####[facility] [address] [place], [address] Hematocrit (Bld) [Volume fraction] 29.8 % Low 37-47 [facility] Comment on above: Performed By: #### L 100.0100 ####[facility] [address] [place], [address] Hemoglobin (Bld) [Mass/Vol] 9.6 g/dL Low 12.0-15.0 [facility] Comment on above: Performed By: #### L 100.0100 ####[facility] [address] [place], [address] IG% 2.700 High 0.0-0.9 [facility] Comment on above: Result Comment: IG% - Immature Granulocytes (promyelocytes, myelocytes andmetamyelocytes) > 1% indicates that a LEFT SHIFT is Present. Performed By: #### L 100.0100 ####[facility] [address] [facility] [address] [place], [address] Lymphocytes/100 WBC (Bld) 5.2 % Low 19-41 [facility] Comment on above: Performed By: #### L 100.0100 ####[facility] [address] [facility] [address] [place], [address] MCH (RBC) [Entitic mass] 29.3 pg Normal 27.0-32.0 [facility] Comment on above: Performed By: #### L 100.0100 ####[facility] [address] [place], [address] MCHC (RBC) [Mass/Vol] 32.2 g/dL Normal 32-36 [facility] Comment on above: Performed By: #### L 100.0100 ####[facility] [address] [place], [address] MCV (RBC) [Entitic vol] 90.9 fL Normal 81-99 [facility] Comment on above: Performed By: #### L 100.0100 ####[facility] [address] [place], [address] Monocytes/100 WBC (Bld) 4.3 % Normal 0-10 [facility] Comment on above: Performed By: #### L 100.0100 ####[facility] [address] [place], [address] Neutrophils/100 WBC (Bld) 86.8 % High 47-70 [facility] Comment on above: Performed By: #### L 100.0100 ####[facility] [address] [place], [address] Nucleated RBC (Bld) [#/Vol] 0 10*3/uL Normal 0-5 [facility] Comment on above: Performed By: #### L 100.0100 ####[facility] [address] [place], [address] Platelet mean volume (Bld) [Entitic vol] 11.0 fL Normal 6.2-12.0 [facility] Comment on above: Performed By: #### L 100.0100 ####[facility] [address] [place], [address] Platelets (Bld) [#/Vol] 241 10*3/uL Normal 150-450 [facility] Comment on above: Performed By: #### L 100.0100 ####[facility] [address] [place], [address] RBC (Bld) [#/Vol] 3.28 10*6/uL Low 4.2-5.4 [facility] Comment on above: Performed By: #### L 100.0100 ####[facility] [address] [place], [address] RDW SD 51.2 fl High 35.1-43.9 [facility] Comment on above: Performed By: #### L 100.0100 ####[facility] [address] [place], [address] WBC (Bld) [#/Vol] 16.0 10*3/uL High 4.4-11.0 [facility] Comment on above: Performed By: #### L 100.0100 ####[facility] [address] [place], [address] Absolute Neut Normal 2.0-7.7 [facility] Comment on above: Result Comment: Canc elled via OM: Order edited - Discontinuing original order Performed By: #### L 100.0100 ####[facility] [address] [place], [address] HCT Normal 37-47 [facility] Comment on above: Result Comment: Canc elled via OM: Order edited - Discontinuing original order Performed By: #### L 100.0100 ####[facility] [address] [place], [address] HGB Normal 12.0-15.0 [facility] Comment on above: Result Comment: Canc elled via OM: Order edited - Discontinuing original order Performed By: #### L 100.0100 ####[facility] [address] [place], [address] MCH Normal 27.0-32.0 [facility] Comment on above: Result Comment: Canc elled via OM: Order edited - Discontinuing original order Performed By: #### L 100.0100 ####[facility] [address] [place], [address] MCHC Normal 32-36 [facility] Comment on above: Result Comment: Canc elled via OM: Order edited - Discontinuing original order Performed By: #### L 100.0100 ####[facility] [address] [place], [address] MCV Normal 81-99 [facility] Comment on above: Result Comment: Canc elled via OM: Order edited - Discontinuing original order Performed By: #### L 100.0100 ####[facility] [address] [place], [address] NEUT% Normal 47-70 [facility] Comment on above: Result Comment: Canc elled via OM: Order edited - Discontinuing original order Performed By: #### L 100.0100 ####[facility] [address] [place], [address] PLT Normal 150-450 [facility] Comment on above: Result Comment: Canc elled via OM: Order edited - Discontinuing original order Performed By: #### L 100.0100 ####[facility] [address] [place], [address] RBC Normal 4.2-5.4 [facility] Comment on above: Result Comment: Canc elled via OM: Order edited - Discontinuing original order Performed By: #### L 100.0100 ####[facility] [address] [place], [address] RDW CV Normal 11.6-14.6 [facility] Comment on above: Result Comment: Canc elled via OM: Order edited - Discontinuing original order Performed By: #### L 100.0100 ####[facility] [address] [place], [address] RDW SD Normal 35.1-43.9 [facility] Comment on above: Result Comment: Canc elled via OM: Order edited - Discontinuing original order Performed By: #### L 100.0100 ####[facility] [address] [place], [address] WBC Normal 4.4-11.0 [facility] Comment on above: Result Comment: Canc elled via OM: Order edited - Discontinuing original order Performed By: #### L 100.0100 ####[facility] [address] [place], [address] CBC-Complete Blood Cnt No Di ffon 05-26-2025 Erythrocyte distribution width (RBC) [Ratio] 15.6 % High 11.6-14.6 [facility] Comment on above: Performed By: #### L 100.0500, BR, L500.2500, BTS ####[facility] [address] [place], [address] Hematocrit (Bld) [Volume fraction] 29.2 % Low 37-47 [facility] Comment on above: Performed By: #### L 100.0500, BR, L500.2500, BTS ####[facility] [address] [place], [address] Hemoglobin (Bld) [Mass/Vol] 9.2 g/dL Low 12.0-15.0 [facility] Comment on above: Performed By: #### L 100.0500, [facility], L500.2500, BTS ####[facility] [address] [place], [address] MCH (RBC) [Entitic mass] 28.8 pg Normal 27.0-32.0 [facility] Comment on above: Performed By: #### L 100.0500, [facility], L500.2500, BTS ####[facility] [address] [place], [address] MCHC (RBC) [Mass/Vol] 31.5 g/dL Low 32-36 [facility] Comment on above: Performed By: #### L 100.0500, [facility], L500.2500, BTS ####[facility] [address] [place], [address] MCV (RBC) [Entitic vol] 91.5 fL Normal 81-99 [facility] Comment on above: Performed By: #### L 100.0500, BR, L500.2500, BTS ####[facility] [address] [place], [address] Platelet mean volume (Bld) [Entitic vol] 10.5 fL Normal 6.2-12.0 [facility] Comment on above: Performed By: #### L 100.0500, [facility], L500.2500, BTS ####[facility] [address] [place], [address] Platelets (Bld) [#/Vol] 254 10*3/uL Normal 150-450 [facility] Comment on above: Performed By: #### L 100.0500, [facility], L500.2500, BTS ####[facility] [address] [place], [address] RBC (Bld) [#/Vol] 3.19 10*6/uL Low 4.2-5.4 [facility] Comment on above: Performed By: #### L 100.0500, [facility], L500.2500, BTS ####[facility] [address] [place], [address] RDW SD 52.3 fl High 35.1-43.9 [facility] Comment on above: Performed By: #### L 100.0500, [facility], L500.2500, BTS ####[facility] [address] [place], [address] WBC (Bld) [#/Vol] 6.3 10*3/uL Normal 4.4-11.0 [facility] Comment on above: Performed By: #### L 100.0500, [facility], L500.2500, BTS ####[facility] [address] [place], [address] Carbon dioxide, total [Moles /volume] in Central venous bloodOrdered By: Russell Clement on 05-26-2025 CO2 [Moles/Vol] 20.2 mmol/L Low 21.0-32.0 [facility] Chloride assayOrdered By: Julien Clement on 05-26-2025 Chloride [Moles/Vol] 109 mmol/L High 98-108 [facility] Culture, Anaerobic Any Sourc adonis 05-26-2025 CUAN Normal [facility] Comment on above: Performed By: #### M 600.2200, M100.2000, M100.3000, M100.4001, M600.2000 ####[facility] [address] [place], [address] Culture, Blood (WB)on 2024 CUB No growth in 5 days. Normal [facility] Comment on above: Performed By: #### M 200.1000 ####[facility] [address] [place] [place], [address] Erythrocyte distribution wid th ratioOrdered By: Russell Clement on 05-26-2025 Erythrocyte distribution width (RBC) [Ratio] 15.6 % High 11.6-14.6 [facility] Erythrocyte distribution wid th standard deviationOrdered By: Russell Clement on 05-26-2025 Erythrocyte distribution width (RBC) [Ratio] 52.3 fl High 35.1-43.9 [facility] Glomerular filtration rate ( GFR) estimation/1.73 sq m using serum, plasma, or whole bOrdered By: Russell Clement on 05-26-2025 GFR/1.73 sq M.predicted among non-blacks MDRD (S/P/Bld) [Vol rate/Area] 50 mL/min/{1.73_m2} Low >60 [facility] deOrdered By: Maddie Merchant on 05-26-2025 Glucose [Mass/Vol] 116 mg/dL High 74-106 [facility] Hematocrit Auto (Bld) [Volum e fraction]Ordered By: Russell Clement on 05-26-2025 Hematocrit (Bld) [Volume fraction] 29.2 % Low 37-47 [facility] Hemoglobin measurementOrdere d By: Russell Clement on 05-26-2025 Hemoglobin (Bld) [Mass/Vol] 9.2 g/dL Low 12.0-15.0 [facility] Ketones Test strip Ql (U)Ord ered By: Maddie Merchant on 05-26-2025 Ketones Ql (U) 5 mg/dl High Negative [facility] MCV (mean corpuscular volume ) determinationOrdered By: Russell Clement on 05-26-2025 MCV (RBC) [Entitic vol] 91.5 fL 81-99 [facility] MR/POSTOP.ANEon 05-26-2025 MR/POSTOP.ANE Normal [facility] Mean corpuscular hemoglobin (MCH) determinationOrdered By: Russell Clement on 05-26-2025 MCH (RBC) [Entitic mass] 28.8 pg 27.0-32.0 [facility] Mucus LM Ql (Urine sed)Order ed By: Maddie Merchant on 05-26-2025 Mucus Ql (Urine sed) 0 SEEN /hpf [facility] Nitrite Test strip Ql (U)Ord ered By: Maddie Merchant on 05-26-2025 Nitrite Ql (U) Negative Negative [facility] Operative Reporton Operative Report Normal [facility] Platelet countOrdered By: Julien Clement on 05-26-2025 Platelets (Bld) [#/Vol] 254 10*3/uL 150-450 [facility] Potassium measurement (mass/ volume)Ordered By: Russell Clement on 05-26-2025 Potassium (Unsp spec) [Mass/Vol] 4.3 mmol/L 3.3-5.1 [facility] Protein Test strip Ql (U)Ord ered By: Maddie Merchant on 05-26-2025 Protein Ql (U) 100 mg/dl High Negative [facility] RBC Auto (Bld) [#/Vol]Ordere d By: Russell Clement on 05-26-2025 RBC (Bld) [#/Vol] 3.19 10*6/uL Low 4.2-5.4 [facility] Serum creatinine measurement (mass/volume)Ordered By: Russell Clement on 05-26-2025 Creatinine [Mass/Vol] 1.16 mg/dL 0.70-1.20 [facility] Serum glucose measurement (m ass/volume)Ordered By: Russell Clement on 05-26-2025 Glucose [Mass/Vol] 119 mg/dL High 70-99 [facility] Serum or plasma calcium natalia urement (mass/volume)Ordered By: Russell Clement on 05-26-2025 Calcium [Mass/Vol] 9.3 mg/dL 7.6-11.0 [facility] Serum or plasma urea nitroge n measurement (mass/volume)Ordered By: Russell Clement on 05-26-2025 Urea nitrogen [Mass/Vol] 39 mg/dL High 4-19 [facility] Sodium levelOrdered By: Russell Clement on 05-26-2025 Sodium [Moles/Vol] 141 mmol/L 133-145 [facility] Squamous epithelial cells de tection in urine sediment by light microscopyOrdered By: Maddie White on 05-26-2025 Epithelial cells.squamous LM Ql (Urine sed) 5-10 SEEN /hpf 5-10 [facility] Type AND Screenon 05-26-2025 Ab SCREEN GEL Negative Normal [facility] Comment on above: Order Comment: S Performed By: #### L 100.0500, BRC, L500.2500, BTS ####[facility] [address] [place], [address] Urinalysis, Completeon 05-26 AMORPHOUS 2+ Normal [facility] Comment on above: Order Comment: MARTAH TER SPECIMEN Performed By: #### L 400.0001 ####[facility] [address] [place], [address] YEAST 1+ /hpf Normal None Seen [facility] Comment on above: Order Comment: MARTHA TER SPECIMEN Performed By: #### L 400.0001 ####[facility] [address] [place], [address] BACTERIA 1+ /hpf Normal None Seen [facility] Comment on above: Order Comment: MARTHA TER SPECIMEN Performed By: #### L 400.0001 ####[facility] [address] [place], [address] EPI,SQUAMOUS 5-10 SEEN Normal 5-10 [facility] Comment on above: Order Comment: MARTHA TER SPECIMEN Performed By: #### L 400.0001 ####[facility] [address] [place], [address] RBC 5-10 SEEN Normal 0-5 [facility] Comment on above: Order Comment: MARTHA TER SPECIMEN Performed By: #### L 400.0001 ####[facility] [address] [place], [address] WBC >100 SEEN Normal 0-5 [facility] Comment on above: Order Comment: MARTHA TER SPECIMEN Performed By: #### L 400.0001 ####[facility] [address] [place], [place], [address] Mucus Ql (Urine sed) 0 SEEN Normal [facility] Comment on above: Order Comment: MARTHA TER SPECIMEN Performed By: #### L 400.0001 ####[facility] [address] [place], [place], [address] Urine clarityOrdered By: Stacia ulloa White on 05-26-2025 Clarity (U) Turbid Clear [facility] Urine color determinationOrd ered By: Maddie Merchant on 05-26-2025 Color (U) Yellow Yellow [facility] Urine cultureOrdered By: Stacia ulloa White on 05-26-2025 Bacteria identified Cx Nom (U) Presumptive C albicans Abnormal [facility] Urine glucose detectionOrder ed By: Maddie Merchant on 05-26-2025 Glucose Ql (U) Normal mg/dl Normal [facility] Urine leukocyte esterase det ection by dipstickOrdered By: Maddie Merchant on 05-26-2025 Leukocyte esterase Test strip Ql (U) 500 /ul High Negative [facility] Urine pHOrdered By: Maddie Larios yvette on 05-26-2025 pH (U) 5.0 [pH] 5.0 - 8.0 [facility] Urine sediment bacteria coun t by microscopy (number/high power field)Ordered By: Maddie Merchant on 05-26-2025 Bacteria LM.HPF (Urine sed) [#/Area] 1 /[HPF] None Seen [facility] Urine sediment yeast count b y microscopy (number/high powered field)Ordered By: Maddie Merchant on 05-26-2025 Yeast LM.HPF (Urine sed) [#/Area] 1 /[HPF] None Seen [facility] Urine specific gravity measu rementOrdered By: Maddie Merchant on 05-26-2025 Specific gravity (U) [Rel density] 1.025 1.002-1.030 [facility] Urine urobilinogen measureme ntOrdered By: Maddie Merchant on 05-26-2025 Urobilinogen Ql (U) Normal mg/dl Normal [facility] White blood cell (WBC) count Ordered By: Russell Clement on 05-26-2025 WBC (Bld) [#/Vol] 6.3 10*3/uL 4.4-11.0 [facility] White blood cell countOrdere d By: Maddie Merchant on 05-26-2025 White blood cell count >100 SEEN /hpf 0-5 [facility] Wound Cultureon 05-26-2025 WC Normal [facility] Comment on above: Performed By: #### M 600.2200, M100.2000, M100.3000, M100.4001, M600.2000 ####[facility] [address] [place], [address] Basic Metabolic Profile (BMP )on 05-25-2025 BUN/CRE 34.0 RATIO High 10-20 [facility] Comment on above: Performed By: #### L 100.0500, L500.2500 ####[facility] [address] [place], [address] Calcium [Mass/Vol] 9.0 mg/dL Normal 7.6-11.0 [facility] Comment on above: Performed By: #### L 100.0500, L500.2500 ####[facility] [address] [place], [address] Chloride [Moles/Vol] 110 mmol/L High 98-108 [facility] Comment on above: Performed By: #### L 100.0500, L500.2500 ####[facility] [address] [place], [address] CO2 [Moles/Vol] 20.2 mmol/L Low 21.0-32.0 [facility] Comment on above: Performed By: #### L 100.0500, L500.2500 ####[facility] [address] [place], [address] Creatinine [Mass/Vol] 1.11 mg/dL Normal 0.70-1.20 [facility] Comment on above: Performed By: #### L 100.0500, L500.2500 ####[facility] [address] [place], [address] ECRCL 46.34 ml/min Low 50-250 [facility] Comment on above: Performed By: #### L 100.0500, L500.2500 ####[facility] [address] [place], [address] GAP 12 Normal 5-15 [facility] Comment on above: Performed By: #### L 100.0500, L500.2500 ####[facility] [address] [place], [address] GFR/1.73 sq M.predicted among non-blacks MDRD (S/P/Bld) [Vol rate/Area] 52 mL/min/{1.73_m2} Low >60 [facility] Comment on above: Result Comment: mL/m in/1.73m2 CKD-EPI Creatinine Equation (2020) Performed By: #### L 100.0500, L500.2500 ####[facility] [address] [place], [address] Glucose [Mass/Vol] 137 mg/dL High 70-99 [facility] Comment on above: Performed By: #### L 100.0500, L500.2500 ####[facility] [address] [place], [address] Potassium [Moles/Vol] 4.2 mmol/L Normal 3.3-5.1 [facility] Comment on above: Performed By: #### L 100.0500, L500.2500 ####[facility] [address] [place], [address] Sodium [Moles/Vol] 142 mmol/L Normal 133-145 [facility] Comment on above: Performed By: #### L 100.0500, L500.2500 ####[facility] [address] [place], [address] Urea nitrogen [Mass/Vol] 38 mg/dL High 4-19 [facility] Comment on above: Performed By: #### L 100.0500, L500.2500 ####[facility] [address] [place], [address] Bedside Glucoseon 05-25-2025 FINGERSTICK GLU 140 mg/dL High 74-106 [facility] Comment on above: Result Comment: JEREMIAS GEMENT OF PATIENT CARE PER NURSING PROTOCOL Performed By: #### L 501.080 ####[facility] [address] [place], [address] FINGERSTICK GLU 185 mg/dL High 74-106 [facility] Comment on above: Result Comment: JEREMIAS GEMENT OF PATIENT CARE PER NURSING PROTOCOL Performed By: #### L 501.080 ####[facility] [address] [place], [address] FINGERSTICK GLU 263 mg/dL High 74-106 [facility] Comment on above: Result Comment: JEREMIAS GEMENT OF PATIENT CARE PER NURSING PROTOCOL Performed By: #### L 501.080 ####[facility] [address] [place], [address] FINGERSTICK GLU 134 mg/dL High 74-106 [facility] Comment on above: Result Comment: JEREMIAS GEMENT OF PATIENT CARE PER NURSING PROTOCOL Performed By: #### L 501.080 ####[facility] [address] [place], [address] CBC-Complete Blood Cnt No Di ffon 05-25-2025 Erythrocyte distribution width (RBC) [Ratio] 15.5 % High 11.6-14.6 [facility] Comment on above: Performed By: #### L 100.0500, L500.2500 ####[facility] [address] [place], [address] Hematocrit (Bld) [Volume fraction] 26.6 % Low 37-47 [facility] Comment on above: Performed By: #### L 100.0500, L500.2500 ####[facility] [address] [place], [address] Hemoglobin (Bld) [Mass/Vol] 8.8 g/dL Low 12.0-15.0 [facility] Comment on above: Performed By: #### L 100.0500, L500.2500 ####[facility] [address] [place], [address] MCH (RBC) [Entitic mass] 29.5 pg Normal 27.0-32.0 [facility] Comment on above: Performed By: #### L 100.0500, L500.2500 ####[facility] [address] [place], [address] MCHC (RBC) [Mass/Vol] 33.1 g/dL Normal 32-36 [facility] Comment on above: Performed By: #### L 100.0500, L500.2500 ####[facility] [address] [place], [address] MCV (RBC) [Entitic vol] 89.3 fL Normal 81-99 [facility] Comment on above: Performed By: #### L 100.0500, L500.2500 ####[facility] [address] [place], [address] Platelet mean volume (Bld) [Entitic vol] 10.6 fL Normal 6.2-12.0 [facility] Comment on above: Performed By: #### L 100.0500, L500.2500 ####[facility] [address] [place], [address] Platelets (Bld) [#/Vol] 234 10*3/uL Normal 150-450 [facility] Comment on above: Performed By: #### L 100.0500, L500.2500 ####[facility] [address] [place], [address] RBC (Bld) [#/Vol] 2.98 10*6/uL Low 4.2-5.4 [facility] Comment on above: Performed By: #### L 100.0500, L500.2500 ####[facility] [address] [place], [address] RDW SD 50.9 fl High 35.1-43.9 [facility] Comment on above: Performed By: #### L 100.0500, L500.2500 ####[facility] [address] [place], [address] WBC (Bld) [#/Vol] 5.4 10*3/uL Normal 4.4-11.0 [facility] Comment on above: Performed By: #### L 100.0500, L500.2500 ####[facility] [address] [place], [address] Consultation - Surgicalon Consultation - Surgical Normal [facility] Electrocardiogram reportOrde red By: Michael Schultz on 05-25-2025 EKG study [facility] Other Phone: MR/PAT.ANEon 05-25-2025 MR/PAT.ANE Normal [facility] Type AND Screen - PAT ONLYon 05-25-2025 Ab SCREEN GEL Negative Normal [facility] Comment on above: Order Comment: Surge ry Date: 05/26/25Reason for Laboratory Test [id number] BYPASS Performed By: #### B TSPAT ####[facility] [address] [place], [address] Bedside Glucoseon 05-24-2025 FINGERSTICK GLU 133 mg/dL High 74-106 [facility] Comment on above: Result Comment: JEREMIAS GEMENT OF PATIENT CARE PER NURSING PROTOCOL Performed By: #### L 501.080 ####[facility] [address] [place], [address] FINGERSTICK GLU 213 mg/dL High 74-106 [facility] Comment on above: Result Comment: JEREMIAS GEMENT OF PATIENT CARE PER NURSING PROTOCOL Performed By: #### L 501.080 ####[facility] [address] [place], [address] FINGERSTICK GLU 180 mg/dL High 74-106 [facility] Comment on above: Result Comment: JEREMIAS GEMENT OF PATIENT CARE PER NURSING PROTOCOL Performed By: #### L 501.080 ####[facility] [address] [place], [address] FINGERSTICK GLU 130 mg/dL High -106 [facility] Comment on above: Result Comment: JEREMIAS GEMENT OF PATIENT CARE PER NURSING PROTOCOL Performed By: #### L 501.080 ####[facility] [address] [place], [address] Basic Metabolic Profile (BMP )on 05-23-2025 BUN/CRE 42.0 RATIO High 10-20 [facility] Comment on above: Performed By: #### L 100.0500, L500.2500 ####[facility] [address] [place], [address] Calcium [Mass/Vol] 8.9 mg/dL Normal 7.6-11.0 [facility] Comment on above: Performed By: #### L 100.0500, L500.2500 ####[facility] [address] [place], [address] Chloride [Moles/Vol] 111 mmol/L High 98-108 [facility] Comment on above: Performed By: #### L 100.0500, L500.2500 ####[facility] [address] [place], [address] CO2 [Moles/Vol] 21.1 mmol/L Normal 21.0-32.0 [facility] Comment on above: Performed By: #### L 100.0500, L500.2500 ####[facility] [address] [place], [address] Creatinine [Mass/Vol] 0.91 mg/dL Normal 0.70-1.20 [facility] Comment on above: Performed By: #### L 100.0500, L500.2500 ####[facility] [address] [place], [address] ECRCL 56.52 ml/min Normal 50-250 [facility] Comment on above: Performed By: #### L 100.0500, L500.2500 ####[facility] [address] [place], [address] GAP 10 Normal 5-15 [facility] Comment on above: Performed By: #### L 100.0500, L500.2500 ####[facility] [address] [place], [address] GFR/1.73 sq M.predicted among non-blacks MDRD (S/P/Bld) [Vol rate/Area] 66 mL/min/{1.73_m2} Normal >60 [facility] Comment on above: Result Comment: mL/m in/1.73m2 CKD-EPI Creatinine Equation (2020) Performed By: #### L 100.0500, L500.2500 ####[facility] [address] [place], [address] Glucose [Mass/Vol] 89 mg/dL Normal 70-99 [facility] Comment on above: Performed By: #### L 100.0500, L500.2500 ####[facility] [address] [place], [address] Potassium [Moles/Vol] 3.9 mmol/L Normal 3.3-5.1 [facility] Comment on above: Result Comment: Hemo lysis present, Results??could be affected.?? Performed By: #### L 100.0500, L500.2500 ####[facility] [address] [place], [address] Sodium [Moles/Vol] 142 mmol/L Normal 133-145 [facility] Comment on above: Performed By: #### L 100.0500, L500.2500 ####[facility] [address] [place], [address] Urea nitrogen [Mass/Vol] 38 mg/dL High 4-19 [facility] Comment on above: Performed By: #### L 100.0500, L500.2500 ####[facility] [address] [place], [address] Bedside Glucoseon 05-23-2025 FINGERSTICK GLU 177 mg/dL High 74-106 [facility] Comment on above: Result Comment: JEREMIAS GEMENT OF PATIENT CARE PER NURSING PROTOCOL Performed By: #### L 501.080 ####[facility] [address] [place], [address] FINGERSTICK GLU 176 mg/dL High 74-106 [facility] Comment on above: Result Comment: JEREMIAS GEMENT OF PATIENT CARE PER NURSING PROTOCOL Performed By: #### L 501.080 ####[facility] [address] [place], [address] FINGERSTICK GLU 248 mg/dL High 74-106 [facility] Comment on above: Result Comment: JEREMIAS GEMENT OF PATIENT CARE PER NURSING PROTOCOL Performed By: #### L 501.080 ####[facility] [address] [place], [address] FINGERSTICK GLU 82 mg/dL Normal 74-106 [facility] Comment on above: Result Comment: JEREMIAS PADILLA OF PATIENT CARE PER NURSING PROTOCOL Performed By: #### L 501.080 ####[facility] [address] [place], [address] CBC-Complete Blood Cnt No Di ffon 05-23-2025 Erythrocyte distribution width (RBC) [Ratio] 15.9 % High 11.6-14.6 [facility] Comment on above: Performed By: #### L 100.0500, L500.2500 ####[facility] [address] [place], [address] Hematocrit (Bld) [Volume fraction] 27.6 % Low 37-47 [facility] Comment on above: Performed By: #### L 100.0500, L500.2500 ####[facility] [address] [place], [address] Hemoglobin (Bld) [Mass/Vol] 9.0 g/dL Low 12.0-15.0 [facility] Comment on above: Performed By: #### L 100.0500, L500.2500 ####[facility] [address] [place], [address] MCH (RBC) [Entitic mass] 29.4 pg Normal 27.0-32.0 [facility] Comment on above: Performed By: #### L 100.0500, L500.2500 ####[facility] [address] [place], [address] MCHC (RBC) [Mass/Vol] 32.6 g/dL Normal 32-36 [facility] Comment on above: Performed By: #### L 100.0500, L500.2500 ####[facility] [address] [place], [address] MCV (RBC) [Entitic vol] 90.2 fL Normal 81-99 [facility] Comment on above: Performed By: #### L 100.0500, L500.2500 ####[facility] [address] [place], [address] Platelet mean volume (Bld) [Entitic vol] 11.2 fL Normal 6.2-12.0 [facility] Comment on above: Performed By: #### L 100.0500, L500.2500 ####[facility] [address] [place], [address] Platelets (Bld) [#/Vol] 213 10*3/uL Normal 150-450 [facility] Comment on above: Performed By: #### L 100.0500, L500.2500 ####[facility] [address] [place], [address] RBC (Bld) [#/Vol] 3.06 10*6/uL Low 4.2-5.4 [facility] Comment on above: Performed By: #### L 100.0500, L500.2500 ####[facility] [address] [place], [address] RDW SD 52.3 fl High 35.1-43.9 [facility] Comment on above: Performed By: #### L 100.0500, L500.2500 ####[facility] [address] [place], [address] WBC (Bld) [#/Vol] 5.2 10*3/uL Normal 4.4-11.0 [facility] Comment on above: Performed By: #### L 100.0500, L500.2500 ####[facility] [address] [place], [address] Culture, Blood (WB)on 2024 CUB Blood cultures x2, f rom two different sites No growth in 5 days. Normal [facility] Comment on above: Performed By: #### M 200.1000 ####[facility] [address] [place], [address] Urine Cultureon 05-23-2025 URC Normal [facility] Comment on above: Performed By: #### L 400.0001, M100.2200 ####[facility] [address] [place], [address] 12 Lead EKGon 05-22-2025 12 Lead EKG Normal [facility] Absolute lymphocyte countOrd ered By: Heron Wilde on 05-22-2025 Lymphocytes Auto (Unsp spec) [#/Vol] 0.65 10*3/uL Low 0.83-4.51 [facility] Anion gap in Serum or Plasma Ordered By: Heron Wilde on 05-22-2025 Anion gap [Moles/Vol] 13 mmol/L 5-15 [facility] Automated lymphocyte count a s percentage of total leukocytesOrdered By: Heron Wilde on 05-22-2025 Lymphocytes/100 WBC Auto (Unsp spec) 9.1 % Low 19-41 [facility] BUN/creatinine ratioOrdered By: Heron Wilde on 05-22-2025 Urea nitrogen/Creatinine [Mass ratio] 45.7 mg/mg High 10-20 [facility] Basophil percentageOrdered B y: Heron Wilde on 05-22-2025 Basophils/100 WBC (Bld) 0.7 % 0-1 [facility] Bedside Glucoseon 05-22-2025 FINGERSTICK GLU 160 mg/dL High 74-106 [facility] Comment on above: Result Comment: JEREMIAS GEMENT OF PATIENT CARE PER NURSING PROTOCOL Performed By: #### L 501.080 ####[facility] [address] [place], [address] FINGERSTICK GLU 269 mg/dL High 74-106 [facility] Comment on above: Result Comment: JEREMIAS GEMENT OF PATIENT CARE PER NURSING PROTOCOL Performed By: #### L 501.080 ####[facility] [address] [place], [address] Bilirubin, totalOrdered By: Heron Wilde on 05-22-2025 Bilirubin [Mass/Vol] 0.33 mg/dL 0.00-1.30 [facility] CBC W/Diff, Automatedon 07-0 Absolute Lymph 0.65 X10 3/uL Low 0.83-4.51 [facility] Comment on above: Performed By: #### L 100.0100, L500.4050 ####[facility] [address] [place], [address] Absolute Neut 5.6 X10 3/uL Normal 2.0-7.7 [facility] Comment on above: Performed By: #### L 100.0100, L500.4050 ####[facility] [address] [place], [address] Basophils/100 WBC (Bld) 0.7 % Normal 0-1 [facility] Comment on above: Performed By: #### L 100.0100, L500.4050 ####[facility] [address] [place], [address] Eosinophils/100 WBC (Bld) 1.5 % Normal 0-5 [facility] Comment on above: Performed By: #### L 100.0100, L500.4050 ####[facility] [address] [place], [address] Erythrocyte distribution width (RBC) [Ratio] 15.8 % High 11.6-14.6 [facility] Comment on above: Performed By: #### L 100.0100, L500.4050 ####[facility] [address] [place], [address] Hematocrit (Bld) [Volume fraction] 29.6 % Low 37-47 [facility] Comment on above: Performed By: #### L 100.0100, L500.4050 ####[facility] [address] [place], [address] Hemoglobin (Bld) [Mass/Vol] 9.5 g/dL Low 12.0-15.0 [facility] Comment on above: Performed By: #### L 100.0100, L500.4050 ####[facility] [address] [place], [address] IG% 1.300 High 0.0-0.9 [facility] Comment on above: Result Comment: IG% - Immature Granulocytes (promyelocytes, myelocytes andmetamyelocytes) > 1% indicates that a LEFT SHIFT is Present. Performed By: #### L 100.0100, L500.4050 ####[facility] [address] [place], [address] Lymphocytes/100 WBC (Bld) 9.1 % Low 19-41 [facility] Comment on above: Performed By: #### L 100.0100, L500.4050 ####[facility] [address] [place], [address] MCH (RBC) [Entitic mass] 29.0 pg Normal 27.0-32.0 [facility] Comment on above: Performed By: #### L 100.0100, L500.4050 ####[facility] [address] [place], [address] MCHC (RBC) [Mass/Vol] 32.1 g/dL Normal 32-36 [facility] Comment on above: Performed By: #### L 100.0100, L500.4050 ####[facility] [address] [place], [address] MCV (RBC) [Entitic vol] 90.2 fL Normal 81-99 [facility] Comment on above: Performed By: #### L 100.0100, L500.4050 ####[facility] [address] [place], [address] Monocytes/100 WBC (Bld) 9.0 % Normal 0-10 [facility] Comment on above: Performed By: #### L 100.0100, L500.4050 ####[facility] [address] [place], [address] Neutrophils/100 WBC (Bld) 78.4 % High 47-70 [facility] Comment on above: Performed By: #### L 100.0100, L500.4050 ####[facility] [address] [place], [address] Nucleated RBC (Bld) [#/Vol] 0 10*3/uL Normal 0-5 [facility] Comment on above: Performed By: #### L 100.0100, L500.4050 ####[facility] [address] [place], [address] Platelet mean volume (Bld) [Entitic vol] 10.9 fL Normal 6.2-12.0 [facility] Comment on above: Performed By: #### L 100.0100, L500.4050 ####[facility] [address] [place], [address] Platelets (Bld) [#/Vol] 214 10*3/uL Normal 150-450 [facility] Comment on above: Performed By: #### L 100.0100, L500.4050 ####[facility] [address] [place], [address] RBC (Bld) [#/Vol] 3.28 10*6/uL Low 4.2-5.4 [facility] Comment on above: Performed By: #### L 100.0100, L500.4050 ####[facility] [address] [place], [address] RDW SD 52.4 fl High 35.1-43.9 [facility] Comment on above: Performed By: #### L 100.0100, L500.4050 ####[facility] [address] [place], [address] WBC (Bld) [#/Vol] 7.2 10*3/uL Normal 4.4-11.0 [facility] Comment on above: Performed By: #### L 100.0100, L500.4050 ####[facility] [address] [place], [address] Carbon dioxide, total [Moles /volume] in Central venous bloodOrdered By: Heron Wilde on 05-22-2025 CO2 [Moles/Vol] 19.0 mmol/L Low 21.0-32.0 [facility] Chloride assayOrdered By: Main Wilde on 05-22-2025 Chloride [Moles/Vol] 109 mmol/L High 98-108 [facility] Comprehensive Metabolic Prof ilon 05-22-2025 Albumin [Mass/Vol] 2.9 g/dL Low 3.4-4.8 [facility] Comment on above: Performed By: #### L 100.0100, L500.4050 ####[facility] [address] [place], [address] Albumin/Globulin [Mass ratio] 0.9 {ratio} Normal 0.9-2.4 [facility] Comment on above: Performed By: #### L 100.0100, L500.4050 ####[facility] [address] [place], [address] ALK PHOS 55 U/L Normal 35-104 [facility] Comment on above: Performed By: #### L 100.0100, L500.4050 ####[facility] [address] [place], [address] ALT [Catalytic activity/Vol] 41 U/L High <=34 [facility] Comment on above: Performed By: #### L 100.0100, L500.4050 ####[facility] [address] [place], [address] AST [Catalytic activity/Vol] 58 U/L High <=31 [facility] Comment on above: Performed By: #### L 100.0100, L500.4050 ####[facility] [address] [place], [address] Bilirubin [Mass/Vol] 0.33 mg/dL Normal 0.00-1.30 [facility] Comment on above: Performed By: #### L 100.0100, L500.4050 ####[facility] [address] [place], [address] BUN/CRE 45.7 RATIO High 10-20 [facility] Comment on above: Performed By: #### L 100.0100, L500.4050 ####[facility] [address] [place], [address] Calcium [Mass/Vol] 9.2 mg/dL Normal 7.6-11.0 [facility] Comment on above: Performed By: #### L 100.0100, L500.4050 ####[facility] [address] [place], [address] Chloride [Moles/Vol] 109 mmol/L High 98-108 [facility] Comment on above: Performed By: #### L 100.0100, L500.4050 ####[facility] [address] [place], [address] CO2 [Moles/Vol] 19.0 mmol/L Low 21.0-32.0 [facility] Comment on above: Performed By: #### L 100.0100, L500.4050 ####[facility] [address] [place], [address] Creatinine [Mass/Vol] 1.22 mg/dL High 0.70-1.20 [facility] Comment on above: Performed By: #### L 100.0100, L500.4050 ####[facility] [address] [place], [address] ECRCL 42.00 ml/min Low 50-250 [facility] Comment on above: Performed By: #### L 100.0100, L500.4050 ####[facility] [address] [place], [address] GAP 13 Normal 5-15 [facility] Comment on above: Performed By: #### L 100.0100, L500.4050 ####[facility] [address] [place], [address] GFR/1.73 sq M.predicted among non-blacks MDRD (S/P/Bld) [Vol rate/Area] 47 mL/min/{1.73_m2} Low >60 [facility] Comment on above: Result Comment: mL/m in/1.73m2 CKD-EPI Creatinine Equation (2020) Performed By: #### L 100.0100, L500.4050 ####[facility] [address] [place], [address] Globulin (S) [Mass/Vol] 3.3 g/dL Normal 2.2-4.2 [facility] Comment on above: Performed By: #### L 100.0100, L500.4050 ####[facility] [address] [place], [address] Glucose [Mass/Vol] 216 mg/dL High 70-99 [facility] Comment on above: Performed By: #### L 100.0100, L500.4050 ####[facility] [address] [place], [address] Potassium [Moles/Vol] 4.3 mmol/L Normal 3.3-5.1 [facility] Comment on above: Performed By: #### L 100.0100, L500.4050 ####[facility] [address] [place], [address] Sodium [Moles/Vol] 140 mmol/L Normal 133-145 [facility] Comment on above: Performed By: #### L 100.0100, L500.4050 ####[facility] [address] [place], [address] T PROT 6.2 g/dL Normal 5.9-8.4 [facility] Comment on above: Performed By: #### L 100.0100, L500.4050 ####[facility] [address] [place], [address] Urea nitrogen [Mass/Vol] 56 mg/dL High 4-19 [facility] Comment on above: Performed By: #### L 100.0100, L500.4050 ####[facility] [address] [place], [address] Emergency Department Summary on 05-22-2025 Emergency Department Summary Normal [facility] Eosinophil percentageOrdered By: Heron Wilde on 05-22-2025 Eosinophils/100 WBC (Bld) 1.5 % 0-5 [facility] Erythrocyte distribution wid th ratioOrdered By: Heron Wilde on 05-22-2025 Erythrocyte distribution width (RBC) [Ratio] 15.8 % High 11.6-14.6 [facility] Erythrocyte distribution wid th standard deviationOrdered By: Heron Wilde on 05-22-2025 Erythrocyte distribution width (RBC) [Ratio] 52.4 fl High 35.1-43.9 [facility] Glomerular filtration rate ( GFR) estimation/1.73 sq m using serum, plasma, or whole bOrdered By: Heron Wilde on 05-22-2025 GFR/1.73 sq M.predicted among non-blacks MDRD (S/P/Bld) [Vol rate/Area] 47 mL/min/{1.73_m2} Low >60 [facility] H AND P Exam - Hospitaliston 05-22-2025 H&P Exam - Hospitalist Normal [facility] Hematocrit Auto (Bld) [Volum e fraction]Ordered By: Heron Wilde on 05-22-2025 Hematocrit (Bld) [Volume fraction] 29.6 % Low 37-47 [facility] Hemoglobin measurementOrdere d By: Heron Wilde on 05-22-2025 Hemoglobin (Bld) [Mass/Vol] 9.5 g/dL Low 12.0-15.0 [facility] Immature granulocytes/100 WB C Auto (Bld)Ordered By: Heron Wilde on 05-22-2025 Immature granulocytes/100 WBC (Bld) 1.300 % High 0.0-0.9 [facility] MCV (mean corpuscular volume ) determinationOrdered By: Heron Wilde on 05-22-2025 MCV (RBC) [Entitic vol] 90.2 fL 81-99 [facility] Mean corpuscular hemoglobin (MCH) determinationOrdered By: Heron Wilde on 05-22-2025 MCH (RBC) [Entitic mass] 29.0 pg 27.0-32.0 [facility] Monocyte percentageOrdered B y: Heron Wilde on 05-22-2025 Monocytes/100 WBC (Bld) 9.0 % 0-10 [facility] Neutrophil percentageOrdered By: Heron Wilde on 05-22-2025 Neutrophils/100 WBC (Bld) 78.4 % High 47-70 [facility] No Panel InformationOrdered By: Heron Wilde on 05-22-2025 58 U/L High <32 [facility] Platelet countOrdered By: Main Wilde on 05-22-2025 Platelets (Bld) [#/Vol] 214 10*3/uL 150-450 [facility] Potassium measurement (mass/ volume)Ordered By: Heron Wilde on 05-22-2025 Potassium (Unsp spec) [Mass/Vol] 4.3 mmol/L 3.3-5.1 [facility] RBC Auto (Bld) [#/Vol]Ordere d By: Heron Wilde on 05-22-2025 RBC (Bld) [#/Vol] 3.28 10*6/uL Low 4.2-5.4 [facility] Serum creatinine measurement (mass/volume)Ordered By: Heron Wilde on 05-22-2025 Creatinine [Mass/Vol] 1.22 mg/dL High 0.70-1.20 [facility] Serum globulin measurementOr dered By: Heron Wilde on 05-22-2025 Globulin (S) [Mass/Vol] 3.3 g/dL 2.2-4.2 [facility] Serum glucose measurement (m ass/volume)Ordered By: Heron Wilde on 05-22-2025 Glucose [Mass/Vol] 216 mg/dL High 70-99 [facility] Serum or plasma alanine anaya otransferase (ALT) measurementOrdered By: Heron Wilde on 05-22-2025 ALT [Catalytic activity/Vol] 41 U/L High <35 [facility] Serum or plasma albumin natalia urement (mass/volume)Ordered By: Heron Wilde on 05-22-2025 Albumin [Mass/Vol] 2.9 g/dL Low 3.4-4.8 [facility] Serum or plasma albumin/glob ulin mass ratioOrdered By: Heron Wilde on 05-22-2025 Albumin/Globulin [Mass ratio] 0.9 {ratio} 0.9-2.4 [facility] Serum or plasma alkaline chelsie sphatase measurementOrdered By: Heron Wilde on 05-22-2025 ALP [Catalytic activity/Vol] 55 U/L 35-104 [facility] Serum or plasma calcium natalia urement (mass/volume)Ordered By: Heron Wilde on 05-22-2025 Calcium [Mass/Vol] 9.2 mg/dL 7.6-11.0 [facility] Serum or plasma urea nitroge n measurement (mass/volume)Ordered By: Heron Wilde on 05-22-2025 Urea nitrogen [Mass/Vol] 56 mg/dL High 4-19 [facility] Sodium levelOrdered By: Deborah Wilde on 05-22-2025 Sodium [Moles/Vol] 140 mmol/L 133-145 [facility] Total proteinOrdered By: Anastacio Wilde on 05-22-2025 Protein [Mass/Vol] 6.2 g/dL 5.9-8.4 [facility] Urinalysis, Completeon 05-22 BACTERIA Normal None Seen [facility] Comment on above: Order Comment: CLEAN CATCH Result Comment: Canc elled via OM: MD Ordered Performed By: #### L 400.0001 ####[facility] [address] [place], [address] BILIRUBIN URINE Normal Negative [facility] Comment on above: Order Comment: CLEAN CATCH Result Comment: Canc elled via OM: MD Ordered Performed By: #### L 400.0001 ####[facility] [address] [place], [address] Clarity (U) Normal Clear [facility] Comment on above: Order Comment: CLEAN CATCH Result Comment: Canc elled via OM: MD Ordered Performed By: #### L 400.0001 ####[facility] [address] [place], [address] Color (U) Normal Yellow [facility] Comment on above: Order Comment: CLEAN CATCH Result Comment: Canc elled via OM: MD Ordered Performed By: #### L 400.0001 ####[facility] [address] [place], [address] EPI,SQUAMOUS Normal 5-10 [facility] Comment on above: Order Comment: CLEAN CATCH Result Comment: Canc elled via OM: MD Ordered Performed By: #### L 400.0001 ####[facility] [address] [place], [address] GLUCOSE, UR Normal Normal [facility] Comment on above: Order Comment: CLEAN CATCH Result Comment: Canc elled via OM: MD Ordered Performed By: #### L 400.0001 ####[facility] [address] [place], [address] KETONE UR Normal Negative [facility] Comment on above: Order Comment: CLEAN CATCH Result Comment: Canc elled via OM: MD Ordered Performed By: #### L 400.0001 ####[facility] [address] [place], [address] LEUK ESTERASE Normal Negative [facility] Comment on above: Order Comment: CLEAN CATCH Result Comment: Canc elled via OM: MD Ordered Performed By: #### L 400.0001 ####[facility] [address] [place], [address] Mucus Ql (Urine sed) Normal [facility] Comment on above: Order Comment: CLEAN CATCH Result Comment: Canc elled via OM: MD Ordered Performed By: #### L 400.0001 ####[facility] [address] [place], [address] Nitrite Ql (U) Normal Negative [facility] Comment on above: Order Comment: CLEAN CATCH Result Comment: Canc elled via OM: MD Ordered Performed By: #### L 400.0001 ####[facility] [address] [place], [address] OCCULT BLOOD-UR Normal Negative [facility] Comment on above: Order Comment: CLEAN CATCH Result Comment: Canc elled via OM: MD Ordered Performed By: #### L 400.0001 ####[facility] [address] [place], [address] pH UR Normal 5.0 - 8.0 [facility] Comment on above: Order Comment: CLEAN CATCH Result Comment: Canc elled via OM: MD Ordered Performed By: #### L 400.0001 ####[facility] [address] [place], [address] PROT DIPSTX Normal Negative [facility] Comment on above: Order Comment: CLEAN CATCH Result Comment: Canc elled via OM: MD Ordered Performed By: #### L 400.0001 ####[facility] [address] [place], [address] RBC Normal 0-5 [facility] Comment on above: Order Comment: CLEAN CATCH Result Comment: Canc elled via OM: MD Ordered Performed By: #### L 400.0001 ####[facility] [address] [place], [address] SP.GR. DIPSTX Normal 1.002-1.030 [facility] Comment on above: Order Comment: CLEAN CATCH Result Comment: Canc elled via OM: MD Ordered Performed By: #### L 400.0001 ####[facility] [address] [place], [address] UR Preservative Normal [facility] Comment on above: Order Comment: CLEAN CATCH Result Comment: Canc elled via OM: MD Ordered Performed By: #### L 400.0001 ####[facility] [address] [place], [address] UROBILI Normal Normal [facility] Comment on above: Order Comment: CLEAN CATCH Result Comment: Canc elled via OM: MD Ordered Performed By: #### L 400.0001 ####[facility] [address] [place], [address] WBC Normal 0-5 [facility] Comment on above: Order Comment: CLEAN CATCH Result Comment: Canc elled via OM: MD Ordered Performed By: #### L 400.0001 ####[facility] [address] [place], [address] White blood cell (WBC) count Ordered By: Heron Wilde on 05-22-2025 WBC (Bld) [#/Vol] 7.2 10*3/uL 4.4-11.0 [facility] Absolute lymphocyte countOrd ered By: Michaela Joshua on 05-21-2025 Lymphocytes Auto (Unsp spec) [#/Vol] 0.82 10*3/uL Low 0.83-4.51 [facility] Anion gap in Serum or Plasma Ordered By: Michaela Joshua on 05-21-2025 Anion gap [Moles/Vol] 10 mmol/L 5-15 [facility] Automated lymphocyte count a s percentage of total leukocytesOrdered By: Micahela Joshua on 05-21-2025 Lymphocytes/100 WBC Auto (Unsp spec) 17.7 % Low 19-41 [facility] BUN/creatinine ratioOrdered By: Michaela Joshua on 05-21-2025 Urea nitrogen/Creatinine [Mass ratio] 37.7 mg/mg High 10-20 [facility] Basic Metabolic Profile (BMP )on 05-21-2025 BUN/CRE 37.7 RATIO High 10-20 [facility] Comment on above: Performed By: #### L 100.0100, L500.2500 ####[facility] [address] [place], [address] Calcium [Mass/Vol] 8.9 mg/dL Normal 7.6-11.0 [facility] Comment on above: Performed By: #### L 100.0100, L500.2500 ####[facility] [address] [place], [address] Chloride [Moles/Vol] 107 mmol/L Normal 98-108 [facility] Comment on above: Performed By: #### L 100.0100, L500.2500 ####[facility] [address] [place], [address] CO2 [Moles/Vol] 20.9 mmol/L Low 21.0-32.0 [facility] Comment on above: Performed By: #### L 100.0100, L500.2500 ####[facility] [address] [place], [address] Creatinine [Mass/Vol] 1.37 mg/dL High 0.70-1.20 [facility] Comment on above: Performed By: #### L 100.0100, L500.2500 ####[facility] [address] [place], [address] ECRCL 37.42 ml/min Low 50-250 [facility] Comment on above: Performed By: #### L 100.0100, L500.2500 ####[facility] [address] [place], [address] GAP 10 Normal 5-15 [facility] Comment on above: Performed By: #### L 100.0100, L500.2500 ####[facility] [address] [place], [address] GFR/1.73 sq M.predicted among non-blacks MDRD (S/P/Bld) [Vol rate/Area] 41 mL/min/{1.73_m2} Low >60 [facility] Comment on above: Result Comment: mL/m in/1.73m2 CKD-EPI Creatinine Equation (2020) Performed By: #### L 100.0100, L500.2500 ####[facility] [address] [place], [address] Glucose [Mass/Vol] 192 mg/dL High 70-99 [facility] Comment on above: Performed By: #### L 100.0100, L500.2500 ####[facility] [address] [place], [address] Potassium [Moles/Vol] 4.3 mmol/L Normal 3.3-5.1 [facility] Comment on above: Performed By: #### L 100.0100, L500.2500 ####[facility] [address] [place], [address] Sodium [Moles/Vol] 138 mmol/L Normal 133-145 [facility] Comment on above: Performed By: #### L 100.0100, L500.2500 ####[facility] [address] [place], [address] Urea nitrogen [Mass/Vol] 52 mg/dL High 4-19 [facility] Comment on above: Performed By: #### L 100.0100, L500.2500 ####[facility] [address] [place], [address] Basophil percentageOrdered B y: Michaela Joshua on 05-21-2025 Basophils/100 WBC (Bld) 0.4 % 0-1 [facility] Bedside Glucoseon 05-21-2025 FINGERSTICK GLU 335 mg/dL High 74-106 [facility] Comment on above: Result Comment: JEREMIAS GEMENT OF PATIENT CARE PER NURSING PROTOCOL Performed By: #### L 501.080 ####[facility] [address] [place], [address] FINGERSTICK GLU 160 mg/dL High 74-106 [facility] Comment on above: Result Comment: JEREMIAS GEMENT OF PATIENT CARE PER NURSING PROTOCOL Performed By: #### L 501.080 ####[facility] [address] [place], [address] Blood cultureOrdered By: Rosalia Joshua on 05-21-2025 Bacteria identified Cx Nom (Bld) No growth in 5 days. [facility] CBC W/Diff, Automatedon 07-0 Absolute Lymph 0.82 X10 3/uL Low 0.83-4.51 [facility] Comment on above: Performed By: #### L 100.0100, L500.2500 ####[facility] [address] [place], [address] Absolute Neut 3.0 X10 3/uL Normal 2.0-7.7 [facility] Comment on above: Performed By: #### L 100.0100, L500.2500 ####[facility] [address] [place], [address] Basophils/100 WBC (Bld) 0.4 % Normal 0-1 [facility] Comment on above: Performed By: #### L 100.0100, L500.2500 ####[facility] [address] [place], [address] Eosinophils/100 WBC (Bld) 2.6 % Normal 0-5 [facility] Comment on above: Performed By: #### L 100.0100, L500.2500 ####[facility] [address] [place], [address] Erythrocyte distribution width (RBC) [Ratio] 15.9 % High 11.6-14.6 [facility] Comment on above: Performed By: #### L 100.0100, L500.2500 ####[facility] [address] [place], [address] Hematocrit (Bld) [Volume fraction] 25.4 % Low 37-47 [facility] Comment on above: Performed By: #### L 100.0100, L500.2500 ####[facility] [address] [place], [address] Hemoglobin (Bld) [Mass/Vol] 8.0 g/dL Low 12.0-15.0 [facility] Comment on above: Performed By: #### L 100.0100, L500.2500 ####[facility] [address] [place], [address] IG% 0.900 Normal 0.0-0.9 [facility] Comment on above: Result Comment: IG% - Immature Granulocytes (promyelocytes, myelocytes andmetamyelocytes) > 1% indicates that a LEFT SHIFT is Present. Performed By: #### L 100.0100, L500.2500 ####[facility] [address] [place], [address] Lymphocytes/100 WBC (Bld) 17.7 % Low 19-41 [facility] Comment on above: Performed By: #### L 100.0100, L500.2500 ####[facility] [address] [place], [address] MCH (RBC) [Entitic mass] 28.4 pg Normal 27.0-32.0 [facility] Comment on above: Performed By: #### L 100.0100, L500.2500 ####[facility] [address] [place], [address] MCHC (RBC) [Mass/Vol] 31.5 g/dL Low 32-36 [facility] Comment on above: Performed By: #### L 100.0100, L500.2500 ####[facility] [address] [place], [address] MCV (RBC) [Entitic vol] 90.1 fL Normal 81-99 [facility] Comment on above: Performed By: #### L 100.0100, L500.2500 ####[facility] [address] [place], [address] Monocytes/100 WBC (Bld) 13.6 % High 0-10 [facility] Comment on above: Performed By: #### L 100.0100, L500.2500 ####[facility] [address] [place], [address] Neutrophils/100 WBC (Bld) 64.8 % Normal 47-70 [facility] Comment on above: Performed By: #### L 100.0100, L500.2500 ####[facility] [address] [place], [address] Nucleated RBC (Bld) [#/Vol] 0 10*3/uL Normal 0-5 [facility] Comment on above: Performed By: #### L 100.0100, L500.2500 ####[facility] [address] [place], [address] Platelet mean volume (Bld) [Entitic vol] 11.8 fL Normal 6.2-12.0 [facility] Comment on above: Performed By: #### L 100.0100, L500.2500 ####[facility] [address] [place], [address] Platelets (Bld) [#/Vol] 167 10*3/uL Normal 150-450 [facility] Comment on above: Performed By: #### L 100.0100, L500.2500 ####[facility] [address] [place], [address] RBC (Bld) [#/Vol] 2.82 10*6/uL Low 4.2-5.4 [facility] Comment on above: Performed By: #### L 100.0100, L500.2500 ####[facility] [address] [place], [address] RDW SD 53.0 fl High 35.1-43.9 [facility] Comment on above: Performed By: #### L 100.0100, L500.2500 ####[facility] [address] [place], [address] WBC (Bld) [#/Vol] 4.6 10*3/uL Normal 4.4-11.0 [facility] Comment on above: Performed By: #### L 100.0100, L500.2500 ####[facility] [address] [place], [address] Carbon dioxide, total [Moles /volume] in Central venous bloodOrdered By: Michaela Joshua on 05-21-2025 CO2 [Moles/Vol] 20.9 mmol/L Low 21.0-32.0 [facility] Chloride assayOrdered By: Arti Joshua on 05-21-2025 Chloride [Moles/Vol] 107 mmol/L 98-108 [facility] Eosinophil percentageOrdered By: Michaela Joshua on 05-21-2025 Eosinophils/100 WBC (Bld) 2.6 % 0-5 [facility] Erythrocyte distribution wid th ratioOrdered By: Michaela Joshua on 05-21-2025 Erythrocyte distribution width (RBC) [Ratio] 15.9 % High 11.6-14.6 [facility] Erythrocyte distribution wid th standard deviationOrdered By: Michaela Joshua on 05-21-2025 Erythrocyte distribution width (RBC) [Ratio] 53.0 fl High 35.1-43.9 [facility] Glomerular filtration rate ( GFR) estimation/1.73 sq m using serum, plasma, or whole bOrdered By: Michaela Joshua on 05-21-2025 GFR/1.73 sq M.predicted among non-blacks MDRD (S/P/Bld) [Vol rate/Area] 41 mL/min/{1.73_m2} Low >60 [facility] Glucose measurement at bedsi deOrdered By: Michaela Joshua on 05-21-2025 Glucose [Mass/Vol] 335 mg/dL High 74-106 [facility] Gram Stainon 05-21-2025 GS UNK UNK COLLECTED IN OR, INCISIONAL BONE CORTEX LT. ANKLE Gram Stain Rare Epithelial cells Rare Gram positive cocci No White Blood Cells Normal [facility] Comment on above: Performed By: #### M 600.2200, M100.2000, M100.3000, M100.4001, M600.1999 ####[facility] [address] [place], [place], [address] Hematocrit Auto (Bld) [Volum e fraction]Ordered By: Michaela Joshua on 05-21-2025 Hematocrit (Bld) [Volume fraction] 25.4 % Low 37-47 [facility] Hemoglobin measurementOrdere d By: Michaela Joshua on 05-21-2025 Hemoglobin (Bld) [Mass/Vol] 8.0 g/dL Low 12.0-15.0 [facility] Immature granulocytes/100 WB C Auto (Bld)Ordered By: Michaela Joshua on 05-21-2025 Immature granulocytes/100 WBC (Bld) 0.900 % 0.0-0.9 [facility] MCV (mean corpuscular volume ) determinationOrdered By: Michaela Joshua on 05-21-2025 MCV (RBC) [Entitic vol] 90.1 fL 81-99 [facility] Mean corpuscular hemoglobin (MCH) determinationOrdered By: Michaela Joshua on 05-21-2025 MCH (RBC) [Entitic mass] 28.4 pg 27.0-32.0 [facility] Monocyte percentageOrdered B y: Michaela Johsua on 05-21-2025 Monocytes/100 WBC (Bld) 13.6 % High 0-10 [facility] Neutrophil percentageOrdered By: Micahela Joshua on 05-21-2025 Neutrophils/100 WBC (Bld) 64.8 % 47-70 [facility] Platelet countOrdered By: Arti Joshua on 05-21-2025 Platelets (Bld) [#/Vol] 167 10*3/uL 150-450 [facility] Potassium measurement (mass/ volume)Ordered By: Michaela Joshua on 05-21-2025 Potassium (Unsp spec) [Mass/Vol] 4.3 mmol/L 3.3-5.1 [facility] RBC Auto (Bld) [#/Vol]Ordere d By: Michaela Joshua on 05-21-2025 RBC (Bld) [#/Vol] 2.82 10*6/uL Low 4.2-5.4 [facility] Serum creatinine measurement (mass/volume)Ordered By: Michaela Joshua on 05-21-2025 Creatinine [Mass/Vol] 1.37 mg/dL High 0.70-1.20 [facility] Serum glucose measurement (m ass/volume)Ordered By: Michaela Joshua on 05-21-2025 Glucose [Mass/Vol] 192 mg/dL High 70-99 [facility] Serum or plasma calcium natalia urement (mass/volume)Ordered By: Michaela Joshua on 05-21-2025 Calcium [Mass/Vol] 8.9 mg/dL 7.6-11.0 [facility] Serum or plasma urea nitroge n measurement (mass/volume)Ordered By: Michaela Joshua on 05-21-2025 Urea nitrogen [Mass/Vol] 52 mg/dL High 4-19 [facility] Sodium levelOrdered By: Yuliana Joshua on 05-21-2025 Sodium [Moles/Vol] 138 mmol/L 133-145 [facility] White blood cell (WBC) count Ordered By: Michaela Joshua on 05-21-2025 WBC (Bld) [#/Vol] 4.6 10*3/uL 4.4-11.0 [facility] Anaerobic cultureOrdered By: Patel Irene on 05-20-2025 Bacteria identified Anaer cx Nom (Unsp spec) Prevotella oralis Abnormal [facility] Bacteria identified Anaer cx Nom (Unsp spec) Actinomyces naeslundii Abnormal [facility] Bacteria identified Anaer cx Nom (Unsp spec) Anaerobic cocci Abnormal [facility] Basic Metabolic Profile (BMP )on 07-02-2025 BUN/CRE 38.6 RATIO High 10-20 [facility] Comment on above: Performed By: #### L 500.2500, L100.0100 ####[facility] [address] [place], [address] Calcium [Mass/Vol] 8.8 mg/dL Normal 7.6-11.0 [facility] Comment on above: Performed By: #### L 500.2500, L100.0100 ####[facility] [address] [place], [address] Chloride [Moles/Vol] 107 mmol/L Normal 98-108 [facility] Comment on above: Performed By: #### L 500.2500, L100.0100 ####[facility] [address] [place], [address] CO2 [Moles/Vol] 18.3 mmol/L Low 21.0-32.0 [facility] Comment on above: Performed By: #### L 500.2500, L100.0100 ####[facility] [address] [place], [address] Creatinine [Mass/Vol] 1.49 mg/dL High 0.70-1.20 [facility] Comment on above: Performed By: #### L 500.2500, L100.0100 ####[facility] [address] [place], [address] ECRCL 34.43 ml/min Low 50-250 [facility] Comment on above: Performed By: #### L 500.2500, L100.0100 ####[facility] [address] [place], [address] GAP 12 Normal 5-15 [facility] Comment on above: Performed By: #### L 500.2500, L100.0100 ####[facility] [address] [place], [address] GFR/1.73 sq M.predicted among non-blacks MDRD (S/P/Bld) [Vol rate/Area] 37 mL/min/{1.73_m2} Low >60 [facility] Comment on above: Result Comment: mL/m in/1.73m2 CKD-EPI Creatinine Equation (2020) Performed By: #### L 500.2500, L100.0100 ####[facility] [address] [place], [address] Glucose [Mass/Vol] 143 mg/dL High 70-99 [facility] Comment on above: Performed By: #### L 500.2500, L100.0100 ####[facility] [address] [place], [address] Potassium [Moles/Vol] 4.0 mmol/L Normal 3.3-5.1 [facility] Comment on above: Performed By: #### L 500.2500, L100.0100 ####[facility] [address] [place], [address] Sodium [Moles/Vol] 138 mmol/L Normal 133-145 [facility] Comment on above: Performed By: #### L 500.2500, L100.0100 ####[facility] [address] [place], [address] Urea nitrogen [Mass/Vol] 58 mg/dL High 4-19 [facility] Comment on above: Performed By: #### L 500.2500, L100.0100 ####[facility] [address] [place], [address] Bedside Glucoseon 05-20-2025 FINGERSTICK GLU 229 mg/dL High 74-106 [facility] Comment on above: Result Comment: JEREMIAS PADILLA OF PATIENT CARE PER NURSING PROTOCOL Performed By: #### L 501.080 ####[facility] [address] [place], [address] FINGERSTICK GLU 119 mg/dL High 74-106 [facility] Comment on above: Result Comment: JEREMIAS GEMENT OF PATIENT CARE PER NURSING PROTOCOL Performed By: #### L 501.080 ####[facility] [address] [place], [address] FINGERSTICK GLU 133 mg/dL High 74-106 [facility] Comment on above: Result Comment: JEREMIAS GEMENT OF PATIENT CARE PER NURSING PROTOCOL Performed By: #### L 501.080 ####[facility] [address] [place], [address] FINGERSTICK GLU 143 mg/dL High 74-106 [facility] Comment on above: Result Comment: JEREMIAS GEMENT OF PATIENT CARE PER NURSING PROTOCOL Performed By: #### L 501.080 ####[facility] [address] [place], [address] CBC W/Diff, Automatedon 07-0 2-2024 Absolute Lymph 0.68 X10 3/uL Low 0.83-4.51 [facility] Comment on above: Performed By: #### L 500.2500, L100.0100 ####[facility] [address] [place], [address] Absolute Neut 3.7 X10 3/uL Normal 2.0-7.7 [facility] Comment on above: Performed By: #### L 500.2500, L100.0100 ####[facility] [address] [place], [address] Basophils/100 WBC (Bld) 0.6 % Normal 0-1 [facility] Comment on above: Performed By: #### L 500.2500, L100.0100 ####[facility] [address] [place], [address] Eosinophils/100 WBC (Bld) 2.6 % Normal 0-5 [facility] Comment on above: Performed By: #### L 500.2500, L100.0100 ####[facility] [address] [place], [address] Erythrocyte distribution width (RBC) [Ratio] 15.8 % High 11.6-14.6 [facility] Comment on above: Performed By: #### L 500.2500, L100.0100 ####[facility] [address] [place], [address] Hematocrit (Bld) [Volume fraction] 27.2 % Low 37-47 [facility] Comment on above: Performed By: #### L 500.2500, L100.0100 ####[facility] [address] [place], [address] Hemoglobin (Bld) [Mass/Vol] 8.9 g/dL Low 12.0-15.0 [facility] Comment on above: Performed By: #### L 500.2500, L100.0100 ####[facility] [address] [place], [address] IG% 0.600 Normal 0.0-0.9 [facility] Comment on above: Result Comment: IG% - Immature Granulocytes (promyelocytes, myelocytes andmetamyelocytes) > 1% indicates that a LEFT SHIFT is Present. Performed By: #### L 500.2500, L100.0100 ####[facility] [address] [place], [address] Lymphocytes/100 WBC (Bld) 12.8 % Low 19-41 [facility] Comment on above: Performed By: #### L 500.2500, L100.0100 ####[facility] [address] [place], [address] MCH (RBC) [Entitic mass] 28.8 pg Normal 27.0-32.0 [facility] Comment on above: Performed By: #### L 500.2500, L100.0100 ####[facility] [address] [place], [address] MCHC (RBC) [Mass/Vol] 32.7 g/dL Normal 32-36 [facility] Comment on above: Performed By: #### L 500.2500, L100.0100 ####[facility] [address] [place], [address] MCV (RBC) [Entitic vol] 88.0 fL Normal 81-99 [facility] Comment on above: Performed By: #### L 500.2500, L100.0100 ####[facility] [address] [place], [address] Monocytes/100 WBC (Bld) 13.5 % High 0-10 [facility] Comment on above: Performed By: #### L 500.2500, L100.0100 ####[facility] [address] [place], [address] Neutrophils/100 WBC (Bld) 69.9 % Normal 47-70 [facility] Comment on above: Performed By: #### L 500.2500, L100.0100 ####[facility] [address] [place], [address] Nucleated RBC (Bld) [#/Vol] 0 10*3/uL Normal 0-5 [facility] Comment on above: Performed By: #### L 500.2500, L100.0100 ####[facility] [address] [place], [address] Platelet mean volume (Bld) [Entitic vol] 11.8 fL Normal 6.2-12.0 [facility] Comment on above: Performed By: #### L 500.2500, L100.0100 ####[facility] [address] [place], [address] Platelets (Bld) [#/Vol] 165 10*3/uL Normal 150-450 [facility] Comment on above: Performed By: #### L 500.2500, L100.0100 ####[facility] [address] [place], [address] RBC (Bld) [#/Vol] 3.09 10*6/uL Low 4.2-5.4 [facility] Comment on above: Performed By: #### L 500.2500, L100.0100 ####[facility] [address] [place], [address] RDW SD 50.9 fl High 35.1-43.9 [facility] Comment on above: Performed By: #### L 500.2500, L100.0100 ####[facility] [address] [place], [address] WBC (Bld) [#/Vol] 5.3 10*3/uL Normal 4.4-11.0 [facility] Comment on above: Performed By: #### L 500.2500, L100.0100 ####[facility] [address] [place], [address] Fungus cultureOrdered By: Marcie Irene on 05-20-2025 Fungus identified Cx Nom (Unsp spec) [facility] Fungus stainOrdered By: Filemon Irene on 05-20-2025 Fungus identified Fungus stain Nom (Unsp spec) [facility] Gram stainOrdered By: Keri Irene on 05-20-2025 Microscopic observation Gram stain Nom (Unsp spec) [facility] MR/POSTOP.ANEon 05-20-2025 MR/POSTOP.ANE Normal [facility] MR/PNVWZPYS5js 05-20-2025 MR/POSTOPAN2 Normal [facility] Operative Reporton Operative Report Normal [facility] Routine wound cultureOrdered By: Patel Irene on 05-20-2025 Microbial culture, routine Meth. resistant Staph. aureus Abnormal [facility] Wound Cultureon 05-20-2025 WC Normal [facility] Comment on above: Performed By: #### M 100.3000, M100.2000, M8200.1075 ####[facility] [address] [place], [address] Bedside Glucoseon 05-19-2025 FINGERSTICK GLU 197 mg/dL High 74-106 [facility] Comment on above: Result Comment: JEREMIAS GEMENT OF PATIENT CARE PER NURSING PROTOCOL Performed By: #### L 501.080 ####[facility] [address] [place], [address] FINGERSTICK GLU 237 mg/dL High 74-106 [facility] Comment on above: Result Comment: JEREMIAS GEMENT OF PATIENT CARE PER NURSING PROTOCOL Performed By: #### L 501.080 ####[facility] [address] [place], [address] FINGERSTICK GLU 111 mg/dL High 74-106 [facility] Comment on above: Result Comment: JEREMIAS GEMENT OF PATIENT CARE PER NURSING PROTOCOL Performed By: #### L 501.080 ####[facility] [address] [place], [address] FINGERSTICK GLU 82 mg/dL Normal 74-106 [facility] Comment on above: Result Comment: JEREMIAS GEMENT OF PATIENT CARE PER NURSING PROTOCOL Performed By: #### L 501.080 ####[facility] [address] [place], [address] Bilirubin, totalOrdered By: Michaela Joshua on 05-19-2025 Bilirubin [Mass/Vol] 0.25 mg/dL 0.00-1.30 [facility] CBC W/Diff, Automatedon 07-0 Absolute Lymph 0.79 X10 3/uL Low 0.83-4.51 [facility] Comment on above: Performed By: #### L 501.2300, L100.0100, L501.5200, L500.4050 ####[facility] [address] [place], [address] Absolute Neut 4.2 X10 3/uL Normal 2.0-7.7 [facility] Comment on above: Performed By: #### L 501.2300, L100.0100, L501.5200, L500.4050 ####[facility] [address] [place], [address] Basophils/100 WBC (Bld) 0.5 % Normal 0-1 [facility] Comment on above: Performed By: #### L 501.2300, L100.0100, L501.5200, L500.4050 ####[facility] [address] [place], [address] Eosinophils/100 WBC (Bld) 1.6 % Normal 0-5 [facility] Comment on above: Performed By: #### L 501.2300, L100.0100, L501.5200, L500.4050 ####[facility] [address] [place], [address] Erythrocyte distribution width (RBC) [Ratio] 15.7 % High 11.6-14.6 [facility] Comment on above: Performed By: #### L 501.2300, L100.0100, L501.5200, L500.4050 ####[facility] [address] [place], [address] Hematocrit (Bld) [Volume fraction] 26.9 % Low 37-47 [facility] Comment on above: Performed By: #### L 501.2300, L100.0100, L501.5200, L500.4050 ####[facility] [address] [place], [address] Hemoglobin (Bld) [Mass/Vol] 8.7 g/dL Low 12.0-15.0 [facility] Comment on above: Performed By: #### L 501.2300, L100.0100, L501.5200, L500.4050 ####[facility] [address] [place], [address] IG% 0.500 Normal 0.0-0.9 [facility] Comment on above: Result Comment: IG% - Immature Granulocytes (promyelocytes, myelocytes andmetamyelocytes) > 1% indicates that a LEFT SHIFT is Present. Performed By: #### L 501.2300, L100.0100, L501.5200, L500.4050 ####[facility] [address] [place], [address] Lymphocytes/100 WBC (Bld) 13.7 % Low 19-41 [facility] Comment on above: Performed By: #### L 501.2300, L100.0100, L501.5200, L500.4050 ####[facility] [address] [place], [address] MCH (RBC) [Entitic mass] 29.2 pg Normal 27.0-32.0 [facility] Comment on above: Performed By: #### L 501.2300, L100.0100, L501.5200, L500.4050 ####[facility] [address] [place], [address] MCHC (RBC) [Mass/Vol] 32.3 g/dL Normal 32-36 [facility] Comment on above: Performed By: #### L 501.2300, L100.0100, L501.5200, L500.4050 ####[facility] [address] [place], [address] MCV (RBC) [Entitic vol] 90.3 fL Normal 81-99 [facility] Comment on above: Performed By: #### L 501.2300, L100.0100, L501.5200, L500.4050 ####[facility] [address] [place], [address] Monocytes/100 WBC (Bld) 10.4 % High 0-10 [facility] Comment on above: Performed By: #### L 501.2300, L100.0100, L501.5200, L500.4050 ####[facility] [address] [place], [address] Neutrophils/100 WBC (Bld) 73.3 % High 47-70 [facility] Comment on above: Performed By: #### L 501.2300, L100.0100, L501.5200, L500.4050 ####[facility] [address] [place], [address] Nucleated RBC (Bld) [#/Vol] 0 10*3/uL Normal 0-5 [facility] Comment on above: Performed By: #### L 501.2300, L100.0100, L501.5200, L500.4050 ####[facility] [address] [place], [address] Platelet mean volume (Bld) [Entitic vol] 11.2 fL Normal 6.2-12.0 [facility] Comment on above: Performed By: #### L 501.2300, L100.0100, L501.5200, L500.4050 ####[facility] [address] [place], [address] Platelets (Bld) [#/Vol] 148 10*3/uL Low 150-450 [facility] Comment on above: Performed By: #### L 501.2300, L100.0100, L501.5200, L500.4050 ####[facility] [address] [place], [address] RBC (Bld) [#/Vol] 2.98 10*6/uL Low 4.2-5.4 [facility] Comment on above: Performed By: #### L 501.2300, L100.0100, L501.5200, L500.4050 ####[facility] [address] [place], [address] RDW SD 52.0 fl High 35.1-43.9 [facility] Comment on above: Performed By: #### L 501.2300, L100.0100, L501.5200, L500.4050 ####[facility] [address] [place], [address] WBC (Bld) [#/Vol] 5.8 10*3/uL Normal 4.4-11.0 [facility] Comment on above: Performed By: #### L 501.2300, L100.0100, L501.5200, L500.4050 ####[facility] [address] [place], [address] Comprehensive Metabolic Prof ilon 05-19-2025 Albumin [Mass/Vol] 2.5 g/dL Low 3.4-4.8 [facility] Comment on above: Performed By: #### L 501.2300, L100.0100, L501.5200, L500.4050 ####[facility] [address] [place], [address] Albumin/Globulin [Mass ratio] 0.9 {ratio} Normal 0.9-2.4 [facility] Comment on above: Performed By: #### L 501.2300, L100.0100, L501.5200, L500.4050 ####[facility] [address] [place], [address] ALK PHOS 45 U/L Normal 35-104 [facility] Comment on above: Performed By: #### L 501.2300, L100.0100, L501.5200, L500.4050 ####[facility] [address] [place], [address] ALT [Catalytic activity/Vol] 37 U/L High <=34 [facility] Comment on above: Performed By: #### L 501.2300, L100.0100, L501.5200, L500.4050 ####[facility] [address] [place], [address] AST [Catalytic activity/Vol] 68 U/L High <=31 [facility] Comment on above: Performed By: #### L 501.2300, L100.0100, L501.5200, L500.4050 ####[facility] [address] [place], [address] Bilirubin [Mass/Vol] 0.25 mg/dL Normal 0.00-1.30 [facility] Comment on above: Performed By: #### L 501.2300, L100.0100, L501.5200, L500.4050 ####[facility] [address] [place], [address] BUN/CRE 36.4 RATIO High 10-20 [facility] Comment on above: Performed By: #### L 501.2300, L100.0100, L501.5200, L500.4050 ####[facility] [address] [place], [address] Calcium [Mass/Vol] 8.8 mg/dL Normal 7.6-11.0 [facility] Comment on above: Performed By: #### L 501.2300, L100.0100, L501.5200, L500.4050 ####[facility] [address] [place], [address] Chloride [Moles/Vol] 109 mmol/L High 98-108 [facility] Comment on above: Performed By: #### L 501.2300, L100.0100, L501.5200, L500.4050 ####[facility] [address] [place], [address] CO2 [Moles/Vol] 19.4 mmol/L Low 21.0-32.0 [facility] Comment on above: Performed By: #### L 501.2300, L100.0100, L501.5200, L500.4050 ####[facility] [address] [place], [address] Creatinine [Mass/Vol] 1.46 mg/dL High 0.70-1.20 [facility] Comment on above: Performed By: #### L 501.2300, L100.0100, L501.5200, L500.4050 ####[facility] [address] [place], [address] ECRCL 35.14 ml/min Low 50-250 [facility] Comment on above: Performed By: #### L 501.2300, L100.0100, L501.5200, L500.4050 ####[facility] [address] [place], [address] GAP 11 Normal 5-15 [facility] Comment on above: Performed By: #### L 501.2300, L100.0100, L501.5200, L500.4050 ####[facility] [address] [place], [address] GFR/1.73 sq M.predicted among non-blacks MDRD (S/P/Bld) [Vol rate/Area] 38 mL/min/{1.73_m2} Low >60 [facility] Comment on above: Result Comment: mL/m in/1.73m2 CKD-EPI Creatinine Equation (2020) Performed By: #### L 501.2300, L100.0100, L501.5200, L500.4050 ####[facility] [address] [place], [address] Globulin (S) [Mass/Vol] 2.9 g/dL Normal 2.2-4.2 [facility] Comment on above: Performed By: #### L 501.2300, L100.0100, L501.5200, L500.4050 ####[facility] [address] [place], [address] Glucose [Mass/Vol] 89 mg/dL Normal 70-99 [facility] Comment on above: Performed By: #### L 501.2300, L100.0100, L501.5200, L500.4050 ####[facility] [address] [place], [address] Potassium [Moles/Vol] 4.2 mmol/L Normal 3.3-5.1 [facility] Comment on above: Performed By: #### L 501.2300, L100.0100, L501.5200, L500.4050 ####[facility] [address] [place], [address] Sodium [Moles/Vol] 140 mmol/L Normal 133-145 [facility] Comment on above: Performed By: #### L 501.2300, L100.0100, L501.5200, L500.4050 ####[facility] [address] [place], [address] T PROT 5.4 g/dL Low 5.9-8.4 [facility] Comment on above: Performed By: #### L 501.2300, L100.0100, L501.5200, L500.4050 ####[facility] [address] [place], [address] Urea nitrogen [Mass/Vol] 53 mg/dL High 4-19 [facility] Comment on above: Performed By: #### L 501.2300, L100.0100, L501.5200, L500.4050 ####[facility] [address] [place], [address] Electrocardiogram reportOrde red By: Michael Schultz on 05-19-2025 EKG study [facility] Other Phone: Magnesiumon 05-19-2025 Magnesium [Mass/Vol] 2.5 mg/dL High 1.5-2.2 [facility] Comment on above: Performed By: #### L 501.2300, L100.0100, L501.5200, L500.4050 ####[facility] [address] [place], [place], [address] Magnesium measurement (mass/ volume)Ordered By: Michaela Joshua on 05-19-2025 Magnesium (Unsp spec) [Mass/Vol] 2.5 mg/dL High 1.5-2.2 [facility] No Panel InformationOrdered By: Michaela Joshua on 05-19-2025 68 U/L High <32 [facility] Phosphoruson 05-19-2025 Phosphate [Mass/Vol] 3.7 mg/dL Normal 2.7-4.5 [facility] Comment on above: Performed By: #### L 501.2300, L100.0100, L501.5200, L500.4050 ####[facility] [address] [place], [place], [address] Serum globulin measurementOr dered By: Michaela Joshua on 05-19-2025 Globulin (S) [Mass/Vol] 2.9 g/dL 2.2-4.2 [facility] Serum or plasma alanine anaya otransferase (ALT) measurementOrdered By: Michaela Joshua on 05-19-2025 ALT [Catalytic activity/Vol] 37 U/L High <35 [facility] Serum or plasma albumin natalia urement (mass/volume)Ordered By: Michaela Joshua on 05-19-2025 Albumin [Mass/Vol] 2.5 g/dL Low 3.4-4.8 [facility] Serum or plasma albumin/glob ulin mass ratioOrdered By: Michaela Joshua on 05-19-2025 Albumin/Globulin [Mass ratio] 0.9 {ratio} 0.9-2.4 [facility] Serum or plasma alkaline chelsie sphatase measurementOrdered By: Michaela Joshua on 05-19-2025 ALP [Catalytic activity/Vol] 45 U/L 35-104 [facility] Total proteinOrdered By: Rosalia Joshua on 05-19-2025 Protein [Mass/Vol] 5.4 g/dL Low 5.9-8.4 [facility] 12 Lead EKGon 05-18-2025 12 Lead EKG Normal [facility] Abdomen/Pelvis without Conto n 05-18-2025 Abdomen/Pelvis without Cont Normal [facility] Absolute lymphocyte countOrd ered By: Maddie Shonda on 05-18-2025 Lymphocytes Auto (Unsp spec) [#/Vol] 0.51 10*3/uL Low 0.83-4.51 [facility] Activated partial thrombopla stin time (aPTT) in platelet poor plasma by coagulation aOrdered By: Maddie Merchant on 05-18-2025 aPTT Coag (PPP) [Time] 46.3 s High 24.1-36.2 [facility] Anion gap in Serum or Plasma Ordered By: Maddie Merchant on 05-18-2025 Anion gap [Moles/Vol] 13 mmol/L 5-15 [facility] Ankle min 3 Viewson 05-18-20 25 Ankle min 3 Views Normal [facility] Automated lymphocyte count a s percentage of total leukocytesOrdered By: Maddie Merchant on 05-18-2025 Lymphocytes/100 WBC Auto (Unsp spec) 8.1 % Low 19-41 [facility] BUN/creatinine ratioOrdered By: Maddie Merchant on 05-18-2025 Urea nitrogen/Creatinine [Mass ratio] 39.9 mg/mg High 10-20 [facility] Basophil percentageOrdered B y: Maddie Merchant on 05-18-2025 Basophils/100 WBC (Bld) 0.3 % 0-1 [facility] Bedside Glucoseon 05-18-2025 FINGERSTICK GLU 195 mg/dL High 74-106 [facility] Comment on above: Result Comment: JEREMIAS GEMENT OF PATIENT CARE PER NURSING PROTOCOL Performed By: #### L 501.080 ####[facility] [address] [place], [address] FINGERSTICK GLU 191 mg/dL High 74-106 [facility] Comment on above: Result Comment: JEREMIAS GEMENT OF PATIENT CARE PER NURSING PROTOCOL Performed By: #### L 501.080 ####[facility] [address] [place], [address] FINGERSTICK GLU 93 mg/dL Normal 74-106 [facility] Comment on above: Result Comment: JEREMIAS GEMENT OF PATIENT CARE PER NURSING PROTOCOL Performed By: #### L 501.080 ####[facility] [address] [facility] [address] FINGERSTICK GLU 132 mg/dL High 74-106 [facility] Comment on above: Result Comment: JEREMIAS GEMENT OF PATIENT CARE PER NURSING PROTOCOL Performed By: #### L 501.080 ####[facility] [address] [place], [address] Bilirubin Test strip Ql (U)O rdered By: Jerri Castillo on 05-18-2025 Bilirubin Ql (U) Negative Negative [facility] Bilirubin, totalOrdered By: Maddie Merchant on 05-18-2025 Bilirubin [Mass/Vol] 0.29 mg/dL 0.00-1.30 [facility] CBC W/Diff, Automatedon 04-21 0-2024 Absolute Lymph 0.51 X10 3/uL Low 0.83-4.51 [facility] Comment on above: Performed By: #### L 100.0100, L501.9985, L500.4050, L501.3620 ####[facility] [address] [facility] [address] Absolute Neut 4.8 X10 3/uL Normal 2.0-7.7 [facility] Comment on above: Performed By: #### L 100.0100, L501.9985, L500.4050, L501.3620 ####[facility] [address] [place], [address] Basophils/100 WBC (Bld) 0.3 % Normal 0-1 [facility] Comment on above: Performed By: #### L 100.0100, L501.9985, L500.4050, L501.3620 ####[facility] [address] [place], [address] Eosinophils/100 WBC (Bld) 0.3 % Normal 0-5 [facility] Comment on above: Performed By: #### L 100.0100, L501.9985, L500.4050, L501.3620 ####[facility] [address] [place], [address] Erythrocyte distribution width (RBC) [Ratio] 15.2 % High 11.6-14.6 [facility] Comment on above: Performed By: #### L 100.0100, L501.9985, L500.4050, L501.3620 ####[facility] [address] [place], [address] Hematocrit (Bld) [Volume fraction] 26.2 % Low 37-47 [facility] Comment on above: Performed By: #### L 100.0100, L501.9985, L500.4050, L501.3620 ####[facility] [address] [place], [address] Hemoglobin (Bld) [Mass/Vol] 8.5 g/dL Low 12.0-15.0 [facility] Comment on above: Performed By: #### L 100.0100, L501.9985, L500.4050, L501.3620 ####[facility] [address] [place], [address] IG% 0.500 Normal 0.0-0.9 [facility] Comment on above: Result Comment: IG% - Immature Granulocytes (promyelocytes, myelocytes andmetamyelocytes) > 1% indicates that a LEFT SHIFT is Present. Performed By: #### L 100.0100, L501.9985, L500.4050, L501.3620 ####[facility] [address] [place], [address] Lymphocytes/100 WBC (Bld) 8.1 % Low 19-41 [facility] Comment on above: Performed By: #### L 100.0100, L501.9985, L500.4050, L501.3620 ####[facility] [address] [place], [address] MCH (RBC) [Entitic mass] 29.0 pg Normal 27.0-32.0 [facility] Comment on above: Performed By: #### L 100.0100, L501.9985, L500.4050, L501.3620 ####[facility] [address] [place], [address] MCHC (RBC) [Mass/Vol] 32.4 g/dL Normal 32-36 [facility] Comment on above: Performed By: #### L 100.0100, L501.9985, L500.4050, L501.3620 ####[facility] [address] [place], [address] MCV (RBC) [Entitic vol] 89.4 fL Normal 81-99 [facility] Comment on above: Performed By: #### L 100.0100, L501.9985, L500.4050, L501.3620 ####[facility] [address] [place], [address] Monocytes/100 WBC (Bld) 14.6 % High 0-10 [facility] Comment on above: Performed By: #### L 100.0100, L501.9985, L500.4050, L501.3620 ####[facility] [address] [place], [address] Neutrophils/100 WBC (Bld) 76.2 % High 47-70 [facility] Comment on above: Performed By: #### L 100.0100, L501.9985, L500.4050, L501.3620 ####[facility] [address] [place], [address] Nucleated RBC (Bld) [#/Vol] 0 10*3/uL Normal 0-5 [facility] Comment on above: Performed By: #### L 100.0100, L501.9985, L500.4050, L501.3620 ####[facility] [address] [place], [address] Platelet mean volume (Bld) [Entitic vol] 11.4 fL Normal 6.2-12.0 [facility] Comment on above: Performed By: #### L 100.0100, L501.9985, L500.4050, L501.3620 ####[facility] [address] [place], [address] Platelets (Bld) [#/Vol] 158 10*3/uL Normal 150-450 [facility] Comment on above: Performed By: #### L 100.0100, L501.9985, L500.4050, L501.3620 ####[facility] [address] [place], [address] RBC (Bld) [#/Vol] 2.93 10*6/uL Low 4.2-5.4 [facility] Comment on above: Performed By: #### L 100.0100, L501.9985, L500.4050, L501.3620 ####[facility] [address] [place], [address] RDW SD 50.2 fl High 35.1-43.9 [facility] Comment on above: Performed By: #### L 100.0100, L501.9985, L500.4050, L501.3620 ####[facility] [address] [place], [address] WBC (Bld) [#/Vol] 6.3 10*3/uL Normal 4.4-11.0 [facility] Comment on above: Performed By: #### L 100.0100, L501.9985, L500.4050, L501.3620 ####[facility] [address] [place], [address] CPK Total, Creatine Kinaseon 05-18-2025 CPK TOTAL 1008 U/L High 24-195 [facility] Comment on above: Performed By: #### L 100.0100, L501.9985, L500.4050, L501.3620 ####[facility] [address] [place], [address] CTA Chest W/WO Contraston CTA Chest W/WO Contrast Normal [facility] Carbon dioxide, total [Moles /volume] in Central venous bloodOrdered By: Maddie Merchant on 05-18-2025 CO2 [Moles/Vol] 18.8 mmol/L Low 21.0-32.0 [facility] Chloride assayOrdered By: Amira Mecrhant on 05-18-2025 Chloride [Moles/Vol] 104 mmol/L 98-108 [facility] Comprehensive Metabolic Prof ilon 05-18-2025 Albumin [Mass/Vol] 2.7 g/dL Low 3.4-4.8 [facility] Comment on above: Performed By: #### L 100.0100, L501.9985, L500.4050, L501.3620 ####[facility] [address] [place], [address] Albumin/Globulin [Mass ratio] 1.0 {ratio} Normal 0.9-2.4 [facility] Comment on above: Performed By: #### L 100.0100, L501.9985, L500.4050, L501.3620 ####[facility] [address] [place], [address] ALK PHOS 47 U/L Normal 35-104 [facility] Comment on above: Performed By: #### L 100.0100, L501.9985, L500.4050, L501.3620 ####[facility] [address] [place], [address] ALT [Catalytic activity/Vol] 33 U/L Normal <=34 [facility] Comment on above: Performed By: #### L 100.0100, L501.9985, L500.4050, L501.3620 ####[facility] [address] [place], [address] AST [Catalytic activity/Vol] 70 U/L High <=31 [facility] Comment on above: Performed By: #### L 100.0100, L501.9985, L500.4050, L501.3620 ####[facility] [address] [place], [address] Bilirubin [Mass/Vol] 0.29 mg/dL Normal 0.00-1.30 [facility] Comment on above: Performed By: #### L 100.0100, L501.9985, L500.4050, L501.3620 ####[facility] [address] [place], [address] BUN/CRE 39.9 RATIO High 10-20 [facility] Comment on above: Performed By: #### L 100.0100, L501.9985, L500.4050, L501.3620 ####[facility] [address] [place], [address] Calcium [Mass/Vol] 9.1 mg/dL Normal 7.6-11.0 [facility] Comment on above: Performed By: #### L 100.0100, L501.9985, L500.4050, L501.3620 ####[facility] [address] [place], [address] Chloride [Moles/Vol] 104 mmol/L Normal 98-108 [facility] Comment on above: Performed By: #### L 100.0100, L501.9985, L500.4050, L501.3620 ####[facility] [address] [place], [address] CO2 [Moles/Vol] 18.8 mmol/L Low 21.0-32.0 [facility] Comment on above: Performed By: #### L 100.0100, L501.9985, L500.4050, L501.3620 ####[facility] [address] [place], [address] Creatinine [Mass/Vol] 1.74 mg/dL High 0.70-1.20 [facility] Comment on above: Performed By: #### L 100.0100, L501.9985, L500.4050, L501.3620 ####[facility] [address] [place], [address] ECRCL 26.96 ml/min Low 50-250 [facility] Comment on above: Performed By: #### L 100.0100, L501.9985, L500.4050, L501.3620 ####[facility] [address] [place], [address] GAP 13 Normal 5-15 [facility] Comment on above: Performed By: #### L 100.0100, L501.9985, L500.4050, L501.3620 ####[facility] [address] [place], [address] GFR/1.73 sq M.predicted among non-blacks MDRD (S/P/Bld) [Vol rate/Area] 31 mL/min/{1.73_m2} Low >60 [facility] Comment on above: Result Comment: mL/m in/1.73m2 CKD-EPI Creatinine Equation (2020) Performed By: #### L 100.0100, L501.9985, L500.4050, L501.3620 ####[facility] [address] [place], [address] Globulin (S) [Mass/Vol] 2.8 g/dL Normal 2.2-4.2 [facility] Comment on above: Performed By: #### L 100.0100, L501.9985, L500.4050, L501.3620 ####[facility] [address] [place], [address] Glucose [Mass/Vol] 161 mg/dL High 70-99 [facility] Comment on above: Performed By: #### L 100.0100, L501.9985, L500.4050, L501.3620 ####[facility] [address] [place], [address] Potassium [Moles/Vol] 3.7 mmol/L Normal 3.3-5.1 [facility] Comment on above: Performed By: #### L 100.0100, L501.9985, L500.4050, L501.3620 ####[facility] [address] [place], [address] Sodium [Moles/Vol] 136 mmol/L Normal 133-145 [facility] Comment on above: Performed By: #### L 100.0100, L501.9985, L500.4050, L501.3620 ####[facility] [address] [place], [address] T PROT 5.5 g/dL Low 5.9-8.4 [facility] Comment on above: Performed By: #### L 100.0100, L501.9985, L500.4050, L501.3620 ####[facility] [address] [place], [address] Urea nitrogen [Mass/Vol] 69 mg/dL High 4-19 [facility] Comment on above: Performed By: #### L 100.0100, L501.9985, L500.4050, L501.3620 ####[facility] [address] [place], [place], [address] Consultation - Infectious Dx on 05-18-2025 Consultation - Infectious Dx Normal [facility] Consultation - Intensiviston 05-18-2025 Consultation - Network Security Engineer Normal [facility] Consultation - Surgicalon Consultation - Surgical Normal [facility] Eosinophil percentageOrdered By: Maddie White on 05-18-2025 Eosinophils/100 WBC (Bld) 0.3 % 0-5 [facility] Erythrocyte Sed Rateon 05-18 SED RATE 54 mm/hr High [facility] Comment on above: Performed By: #### L 101.9900 ####[facility] [address] [place], [place], [address] Erythrocyte distribution wid th ratioOrdered By: Maddie White on 05-18-2025 Erythrocyte distribution width (RBC) [Ratio] 15.2 % High 11.6-14.6 [facility] Erythrocyte distribution wid th standard deviationOrdered By: Maddie White on 05-18-2025 Erythrocyte distribution width (RBC) [Ratio] 50.2 fl High 35.1-43.9 [facility] Erythrocyte sedimentation ra teOrdered By: Patel Irene on 05-18-2025 ESR (Bld) [Velocity] 54 mm/h High [facility] Glomerular filtration rate ( GFR) estimation/1.73 sq m using serum, plasma, or whole bOrdered By: Maddie White on 05-18-2025 GFR/1.73 sq M.predicted among non-blacks MDRD (S/P/Bld) [Vol rate/Area] 31 mL/min/{1.73_m2} Low >60 [facility] Glucose measurement at bedsi deOrdered By: Michaela Joshua on 05-18-2025 Glucose [Mass/Vol] 195 mg/dL High 74-106 [facility] Gram Stainon 05-18-2025 GS List Antibiotics [place] 48 Hours? rocephin and vancomycin List Antibiotics to be Started? zosyn Gram Stain 1+ Gram positive cocci Normal [facility] Comment on above: Performed By: #### M 100.3000, M100.2000, M8200.1075 ####[facility] [address] [place], [place], [address] Gram stainOrdered By: Maddie Merchant on 05-18-2025 Microscopic observation Gram stain Nom (Unsp spec) [facility] H AND P Exam - Hospitaliston 05-18-2025 H&P Exam - Hospitalist Normal [facility] Hematocrit Auto (Bld) [Volum e fraction]Ordered By: Maddie Merchant on 05-18-2025 Hematocrit (Bld) [Volume fraction] 26.2 % Low 37-47 [facility] Hemoglobin A1c percentageOrd ered By: Maddie Merchant on 05-18-2025 HbA1c (Bld) [Mass fraction] 7.6 % High <5.7 [facility] Comment on above: Result Comment: Norm al < 5.7 % Prediabetic 5.7 - 6.4 % Diabetic >or= 6.5 % Please note range changes. Performed By: #### L 100.0100, L501.9985, L500.4050, L501.3620 ####[facility] [address] [place], [place], [address] Hemoglobin measurementOrdere d By: Maddie Merchant on 05-18-2025 Hemoglobin (Bld) [Mass/Vol] 8.5 g/dL Low 12.0-15.0 [facility] Immature granulocytes/100 WB C Auto (Bld)Ordered By: Maddie Merchant on 05-18-2025 Immature granulocytes/100 WBC (Bld) 0.500 % 0.0-0.9 [facility] Ketones Test strip Ql (U)Ord ered By: Jerri Castillo on 05-18-2025 Ketones Ql (U) 5 mg/dl High Negative [facility] Lactic Acidon 05-18-2025 Lactate [Moles/Vol] mmol/L Normal 0.0-2.0 [facility] Comment on above: Order Comment: Comme nts: if result >2, system reflex orders 2nd test @ 4hrsY Performed By: #### L 503.6005 ####[facility] [address] [place], [address] M8200.1075on 05-18-2025 M8200.1075 Normal [facility] Comment on above: Performed By: #### M 100.3000, M100.2000, M8200.1075 ####[facility] [address] [place], [address] MCV (mean corpuscular volume ) determinationOrdered By: Maddie White on 05-18-2025 MCV (RBC) [Entitic vol] 89.4 fL 81-99 [facility] Magnesiumon 05-18-2025 Magnesium [Mass/Vol] 2.6 mg/dL High 1.5-2.2 [facility] Comment on above: Order Comment: Comme nts: May add to ED labsComments: may add to ED labs Performed By: #### L 501.5200, L501.2300 ####[facility] [address] [place], [address] Mean corpuscular hemoglobin (MCH) determinationOrdered By: Maddie Merchant on 05-18-2025 MCH (RBC) [Entitic mass] 29.0 pg 27.0-32.0 [facility] Methicillin resistant Staphy lococcus aureus detection by polymerase chain reactionOrdered By: Maddie Shonda on 05-18-2025 Bacterial nucleic acid assay Meth. resistant Staph. aureus Abnormal [facility] Monocyte percentageOrdered B y: Maddie Shonda on 05-18-2025 Monocytes/100 WBC (Bld) 14.6 % High 0-10 [facility] Mucus LM Ql (Urine sed)Order ed By: Jerri Castillo on 05-18-2025 Mucus Ql (Urine sed) 0 SEEN /hpf [facility] Neutrophil percentageOrdered By: Maddie Merchant on 05-18-2025 Neutrophils/100 WBC (Bld) 76.2 % High 47-70 [facility] Nitrite Test strip Ql (U)Ord ered By: Jerri Casitllo on 05-18-2025 Nitrite Ql (U) Negative Negative [facility] No Panel InformationOrdered By: Maddie Merchant on 05-18-2025 70 U/L High <32 [facility] Partial Thromboplast Timeon 05-18-2025 aPTT Coag (Bld) [Time] 46.3 s High 24.1-36.2 [facility] Comment on above: Performed By: #### L 300.4310, L300.3900 ####[facility] [address] [place], [address] Phosphoruson 05-18-2025 Phosphate [Mass/Vol] 3.8 mg/dL Normal 2.7-4.5 [facility] Comment on above: Order Comment: Comme nts: May add to ED labsComments: may add to ED labs Performed By: #### L 501.5200, L501.2300 ####[facility] [address] [place], [address] Platelet countOrdered By: Amira Merchant on 05-18-2025 Platelets (Bld) [#/Vol] 158 10*3/uL 150-450 [facility] Potassium measurement (mass/ volume)Ordered By: Maddie Merchant on 05-18-2025 Potassium (Unsp spec) [Mass/Vol] 3.7 mmol/L 3.3-5.1 [facility] Protein Test strip Ql (U)Ord ered By: Jerri Castillo on 05-18-2025 Protein Ql (U) 100 mg/dl High Negative [facility] Prothrombin Time w/INRon INR Coag (PPP) [Relative time] 2.2 {INR} Normal [facility] Comment on above: Performed By: #### L 300.4310, L300.3900 ####[facility] [address] [place], [address] PT Coag (PPP) [Time] 15.5 s High 11.7-14.9 [facility] Comment on above: Performed By: #### L 300.4310, L300.3900 ####[facility] [address] [place], [address] Prothrombin timeOrdered By: Maddie Merchant on 05-18-2025 PT Coag (PPP) [Time] 15.5 s High 11.7-14.9 [facility] RBC Auto (Bld) [#/Vol]Ordere d By: Maddie Merchant on 05-18-2025 RBC (Bld) [#/Vol] 2.93 10*6/uL Low 4.2-5.4 [facility] Routine wound cultureOrdered By: Maddie Merchant on 05-18-2025 Microbial culture, routine Meth. resistant Staph. aureus Abnormal [facility] Serum creatinine measurement (mass/volume)Ordered By: Maddie Merchant on 05-18-2025 Creatinine [Mass/Vol] 1.74 mg/dL High 0.70-1.20 [facility] Serum globulin measurementOr dered By: Maddie Merchant 05-18-2025 Globulin (S) [Mass/Vol] 2.8 g/dL 2.2-4.2 [facility] Serum glucose measurement (m ass/volume)Ordered By: Maddie Merchant on 05-18-2025 Glucose [Mass/Vol] 161 mg/dL High 70-99 [facility] Serum or plasma alanine anaya otransferase (ALT) measurementOrdered By: Maddie Merchant on 05-18-2025 ALT [Catalytic activity/Vol] 33 U/L <35 [facility] Serum or plasma albumin natalia urement (mass/volume)Ordered By: Maddie Mrechant on 05-18-2025 Albumin [Mass/Vol] 2.7 g/dL Low 3.4-4.8 [facility] Serum or plasma albumin/glob ulin mass ratioOrdered By: Maddie Merchant 05-18-2025 Albumin/Globulin [Mass ratio] 1.0 {ratio} 0.9-2.4 [facility] Serum or plasma alkaline chelsie sphatase measurementOrdered By: Maddie Merchant 05-18-2025 ALP [Catalytic activity/Vol] 47 U/L 35-104 [facility] Serum or plasma calcium natalia urement (mass/volume)Ordered By: Maddie Merchant on 05-18-2025 Calcium [Mass/Vol] 9.1 mg/dL 7.6-11.0 [facility] Serum or plasma creatine kin ase activityOrdered By: Maddie Merchant on 05-18-2025 CK [Catalytic activity/Vol] 1008 U/L High 24-195 [facility] Serum or plasma urea nitroge n measurement (mass/volume)Ordered By: Maddie Merchant on 05-18-2025 Urea nitrogen [Mass/Vol] 69 mg/dL High 4-19 [facility] Sodium levelOrdered By: Renea Merchant on 05-18-2025 Sodium [Moles/Vol] 136 mmol/L 133-145 [facility] Squamous epithelial cells de tection in urine sediment by light microscopyOrdered By: Jerri Ungpraveen on 05-18-2025 Epithelial cells.squamous LM Ql (Urine sed) 0-5 SEEN /hpf - [facility] Total proteinOrdered By: Stacia bermudezn Shonda on 05-18-2025 Protein [Mass/Vol] 5.5 g/dL Low 5.9-8.4 [facility] Urinalysis, Completeon 05-18 BACTERIA 3+ /hpf Normal None Seen [facility] Comment on above: Order Comment: CORRIE CTOR TO SPECIFY Performed By: #### L 400.0001, ####[facility] [address] [place], [address] EPI,SQUAMOUS 0-5 SEEN Normal - [facility] Comment on above: Order Comment: CORRIE CTOR TO SPECIFY Performed By: #### L 400.0001, ####[facility] [address] [place], [address] WBC >100 SEEN Normal 0-5 [facility] Comment on above: Order Comment: CORRIE CTOR TO SPECIFY Performed By: #### L 400.0001, ####[facility] [address] [place], [address] BILIRUBIN URINE Negative Normal Negative [facility] Comment on above: Order Comment: CORRIE CTOR TO SPECIFY Performed By: #### L 400.0001, ####[facility] [address] [place], [address] Clarity (U) Cloudy Normal Clear [facility] Comment on above: Order Comment: CORRIE CTOR TO SPECIFY Performed By: #### L 400.0001, .2199 ####[facility] [address] [place], [address] Color (U) Yellow Normal Yellow [facility] Comment on above: Order Comment: CORRIE CTOR TO SPECIFY Performed By: #### L 400.0001, ####[facility] [address] [place], [address] GLUCOSE, UR Normal Normal Normal [facility] Comment on above: Order Comment: CORRIE CTOR TO SPECIFY Performed By: #### L 400.0001, ####[facility] [address] [place], [address] KETONE UR 5 mg/dl Abnormal Negative [facility] Comment on above: Order Comment: CORRIE CTOR TO SPECIFY Performed By: #### L 400.0001, ####[facility] [address] [place], [address] LEUK ESTERASE 500 /ul Abnormal Negative [facility] Comment on above: Order Comment: CORRIE CTOR TO SPECIFY Performed By: #### L 400.0001, ####[facility] [address] [place], [address] Nitrite Ql (U) Negative Normal Negative [facility] Comment on above: Order Comment: CORRIE CTOR TO SPECIFY Performed By: #### L 400.0001, ####[facility] [address] [place], [address] OCCULT BLOOD-UR 250 /ul Abnormal Negative [facility] Comment on above: Order Comment: CORRIE CTOR TO SPECIFY Performed By: #### L 400.0001, ####[facility] [address] [place], [address] pH UR 5.0 Normal 5.0 - 8.0 [facility] Comment on above: Order Comment: CORRIE CTOR TO SPECIFY Performed By: #### L 400.0001, ####[facility] [address] [place], [address] PROT DIPSTX 100 mg/dl Abnormal Negative [facility] Comment on above: Order Comment: CORRIE CTOR TO SPECIFY Performed By: #### L 400.0001, ####[facility] [address] [place], [address] SP.GR. DIPSTX 1.020 Normal 1.002-1.030 [facility] Comment on above: Order Comment: CORRIE CTOR TO SPECIFY Performed By: #### L 400.0001, ####[facility] [address] [place], [address] UROBILI Normal Normal Normal [facility] Comment on above: Order Comment: CORRIE CTOR TO SPECIFY Performed By: #### L 400.0001, ####[facility] [address] [place], [address] Mucus Ql (Urine sed) 0 SEEN Normal [facility] Comment on above: Order Comment: CORRIE CTOR TO SPECIFY Performed By: #### L 400.0001, ####[facility] [address] [place], [address] RBC 0 SEEN Normal 0-5 [facility] Comment on above: Order Comment: CORRIE CTOR TO SPECIFY Performed By: #### L 400.0001, ####[facility] [address] [place], [address] Urine clarityOrdered By: Tessa Castillo on 05-18-2025 Clarity (U) Cloudy Clear [facility] Urine color determinationOrd ered By: Jerri Castillo on 05-18-2025 Color (U) Yellow Yellow [facility] Urine cultureOrdered By: Tessa Castillo on 05-18-2025 Bacteria identified Cx Nom (U) Escherichia coli Abnormal [facility] Bacteria identified Cx Nom (U) Presumptive Lactobacillus sp. Abnormal [facility] Bacteria identified Cx Nom (U) Vanna albicans Abnormal [facility] Urine glucose detectionOrder ed By: Jerri Castillo on 05-18-2025 Glucose Ql (U) Normal mg/dl Normal [facility] Urine leukocyte esterase det ection by dipstickOrdered By: Jerri Castillo on 05-18-2025 Leukocyte esterase Test strip Ql (U) 500 /ul High Negative [facility] Urine pHOrdered By: Jerri Un gur on 05-18-2025 pH (U) 5.0 [pH] 5.0 - 8.0 [facility] Urine sediment bacteria coun t by microscopy (number/high power field)Ordered By: Jerri Castillo on 05-18-2025 Bacteria LM.HPF (Urine sed) [#/Area] 3 /[HPF] None Seen [facility] Urine specific gravity measu rementOrdered By: Jerri Castillo on 05-18-2025 Specific gravity (U) [Rel density] 1.020 1.002-1.030 [facility] Urine urobilinogen measureme ntOrdered By: Jerri Castillo on 05-18-2025 Urobilinogen Ql (U) Normal mg/dl Normal [facility] White blood cell (WBC) count Ordered By: Maddie Merchant on 05-18-2025 WBC (Bld) [#/Vol] 6.3 10*3/uL 4.4-11.0 [facility] White blood cell countOrdere d By: Jerri Castillo on 05-18-2025 White blood cell count >100 SEEN /hpf 0-5 [facility] Absolute lymphocyte countOrd ered By: Jerri Castillo on 05-17-2025 Lymphocytes Auto (Unsp spec) [#/Vol] 0.52 10*3/uL Low 0.83-4.51 [facility] Anion gap in Serum or Plasma Ordered By: Jerri Castillo on 05-17-2025 Anion gap [Moles/Vol] 16 mmol/L High 5-15 [facility] Automated lymphocyte count a s percentage of total leukocytesOrdered By: Remus Ungur on 05-17-2025 Lymphocytes/100 WBC Auto (Unsp spec) 7.4 % Low 19-41 [facility] BUN/creatinine ratioOrdered By: Remus Ungur on 05-17-2025 Urea nitrogen/Creatinine [Mass ratio] 39.9 mg/mg High 10-20 [facility] Basophil percentageOrdered B y: Remus Ungur on 05-17-2025 Basophils/100 WBC (Bld) 0.6 % 0-1 [facility] Bilirubin, totalOrdered By: Remus Ungur on 05-17-2025 Bilirubin [Mass/Vol] 0.45 mg/dL 0.00-1.30 [facility] Blood cultureOrdered By: Rem us Ungur on 05-17-2025 Bacteria identified Cx Nom (Bld) No growth in 5 days. [facility] Bacteria identified Cx Nom (Bld) Meth. resistant Staph. aureus Abnormal [facility] CBC W/Diff, Automatedon - Absolute Lymph 0.52 X10 3/uL Low 0.83-4.51 [facility] Comment on above: Performed By: #### L 503.6005, L100.0100, L500.4050 ####[facility] [address] [place], [address] Absolute Neut 5.7 X10 3/uL Normal 2.0-7.7 [facility] Comment on above: Performed By: #### L 503.6005, L100.0100, L500.4050 ####[facility] [address] [place], [address] Basophils/100 WBC (Bld) 0.6 % Normal 0-1 [facility] Comment on above: Performed By: #### L 503.6005, L100.0100, L500.4050 ####[facility] [address] [place], [address] Eosinophils/100 WBC (Bld) 0.0 % Normal 0-5 [facility] Comment on above: Performed By: #### L 503.6005, L100.0100, L500.4050 ####[facility] [address] [place], [address] Erythrocyte distribution width (RBC) [Ratio] 15.3 % High 11.6-14.6 [facility] Comment on above: Performed By: #### L 503.6005, L100.0100, L500.4050 ####[facility] [address] [place], [address] Hematocrit (Bld) [Volume fraction] 27.7 % Low 37-47 [facility] Comment on above: Performed By: #### L 503.6005, L100.0100, L500.4050 ####[facility] [address] [place], [address] Hemoglobin (Bld) [Mass/Vol] 8.9 g/dL Low 12.0-15.0 [facility] Comment on above: Performed By: #### L 503.6005, L100.0100, L500.4050 ####[facility] [address] [place], [address] IG% 0.600 Normal 0.0-0.9 [facility] Comment on above: Result Comment: IG% - Immature Granulocytes (promyelocytes, myelocytes andmetamyelocytes) > 1% indicates that a LEFT SHIFT is Present. Performed By: #### L 503.6005, L100.0100, L500.4050 ####[facility] [address] [place], [address] Lymphocytes/100 WBC (Bld) 7.4 % Low 19-41 [facility] Comment on above: Performed By: #### L 503.6005, L100.0100, L500.4050 ####[facility] [address] [place], [address] MCH (RBC) [Entitic mass] 29.0 pg Normal 27.0-32.0 [facility] Comment on above: Performed By: #### L 503.6005, L100.0100, L500.4050 ####[facility] [address] [place], [address] MCHC (RBC) [Mass/Vol] 32.1 g/dL Normal 32-36 [facility] Comment on above: Performed By: #### L 503.6005, L100.0100, L500.4050 ####[facility] [address] [place], [address] MCV (RBC) [Entitic vol] 90.2 fL Normal 81-99 [facility] Comment on above: Performed By: #### L 503.6005, L100.0100, L500.4050 ####[facility] [address] [place], [address] Monocytes/100 WBC (Bld) 10.6 % High 0-10 [facility] Comment on above: Performed By: #### L 503.6005, L100.0100, L500.4050 ####[facility] [address] [place], [address] Neutrophils/100 WBC (Bld) 80.8 % High 47-70 [facility] Comment on above: Performed By: #### L 503.6005, L100.0100, L500.4050 ####[facility] [address] [place], [address] Nucleated RBC (Bld) [#/Vol] 0 10*3/uL Normal 0-5 [facility] Comment on above: Performed By: #### L 503.6005, L100.0100, L500.4050 ####[facility] [address] [place], [address] Platelet mean volume (Bld) [Entitic vol] 11.3 fL Normal 6.2-12.0 [facility] Comment on above: Performed By: #### L 503.6005, L100.0100, L500.4050 ####[facility] [address] [place], [address] Platelets (Bld) [#/Vol] 162 10*3/uL Normal 150-450 [facility] Comment on above: Performed By: #### L 503.6005, L100.0100, L500.4050 ####[facility] [address] [place], [address] RBC (Bld) [#/Vol] 3.07 10*6/uL Low 4.2-5.4 [facility] Comment on above: Performed By: #### L 503.6005, L100.0100, L500.4050 ####[facility] [address] [place], [address] RDW SD 50.8 fl High 35.1-43.9 [facility] Comment on above: Performed By: #### L 503.6005, L100.0100, L500.4050 ####[facility] [address] [place], [address] WBC (Bld) [#/Vol] 7.1 10*3/uL Normal 4.4-11.0 [facility] Comment on above: Performed By: #### L 503.6005, L100.0100, L500.4050 ####[facility] [address] [place], [address] CPK Total, Creatine Kinaseon 05-17-2025 CPK TOTAL 1177 U/L High 24-195 [facility] Comment on above: Performed By: #### L 501.4780 ####[facility] [address] [place], [address] Carbon dioxide, total [Moles /volume] in Central venous bloodOrdered By: Jerri Sandypraveen on 05-17-2025 CO2 [Moles/Vol] 17.5 mmol/L Low 21.0-32.0 [facility] Chest 1 View (Portable)on Chest 1 View (Portable) Normal [facility] Chloride assayOrdered By: Stephanie montesinos Vikapraveen on 05-17-2025 Chloride [Moles/Vol] 97 mmol/L Low 98-108 [facility] Comprehensive Metabolic Prof ilon 05-17-2025 Albumin [Mass/Vol] 2.9 g/dL Low 3.4-4.8 [facility] Comment on above: Performed By: #### L 503.6005, L100.0100, L500.4050 ####[facility] [address] [place], [address] Albumin/Globulin [Mass ratio] 0.8 {ratio} Low 0.9-2.4 [facility] Comment on above: Performed By: #### L 503.6005, L100.0100, L500.4050 ####[facility] [address] [place], [address] ALK PHOS 54 U/L Normal 35-104 [facility] Comment on above: Performed By: #### L 503.6005, L100.0100, L500.4050 ####[facility] [address] [place], [address] ALT [Catalytic activity/Vol] 36 U/L High <=34 [facility] Comment on above: Performed By: #### L 503.6005, L100.0100, L500.4050 ####[facility] [address] [place], [address] AST [Catalytic activity/Vol] 83 U/L High <=31 [facility] Comment on above: Result Comment: Hemo lysis present, Results??could be affected.?? Performed By: #### L 503.6005, L100.0100, L500.4050 ####[facility] [address] [place], [address] Bilirubin [Mass/Vol] 0.45 mg/dL Normal 0.00-1.30 [facility] Comment on above: Performed By: #### L 503.6005, L100.0100, L500.4050 ####[facility] [address] [place], [address] BUN/CRE 39.9 RATIO High 10-20 [facility] Comment on above: Performed By: #### L 503.6005, L100.0100, L500.4050 ####[facility] [address] [place], [address] Calcium [Mass/Vol] 9.2 mg/dL Normal 7.6-11.0 [facility] Comment on above: Performed By: #### L 503.6005, L100.0100, L500.4050 ####[facility] [address] [place], [address] Chloride [Moles/Vol] 97 mmol/L Low 98-108 [facility] Comment on above: Performed By: #### L 503.6005, L100.0100, L500.4050 ####[facility] [address] [place], [address] CO2 [Moles/Vol] 17.5 mmol/L Low 21.0-32.0 [facility] Comment on above: Performed By: #### L 503.6005, L100.0100, L500.4050 ####[facility] [address] [place], [address] Creatinine [Mass/Vol] 1.96 mg/dL High 0.70-1.20 [facility] Comment on above: Performed By: #### L 503.6005, L100.0100, L500.4050 ####[facility] [address] [place], [address] ECRCL 26.13 ml/min Low 50-250 [facility] Comment on above: Performed By: #### L 503.6005, L100.0100, L500.4050 ####[facility] [address] [place], [address] GAP 16 High 5-15 [facility] Comment on above: Performed By: #### L 503.6005, L100.0100, L500.4050 ####[facility] [address] [place], [address] GFR/1.73 sq M.predicted among non-blacks MDRD (S/P/Bld) [Vol rate/Area] 27 mL/min/{1.73_m2} Low >60 [facility] Comment on above: Result Comment: mL/m in/1.73m2 CKD-EPI Creatinine Equation (2020) Performed By: #### L 503.6005, L100.0100, L500.4050 ####[facility] [address] [place], [address] Globulin (S) [Mass/Vol] 3.4 g/dL Normal 2.2-4.2 [facility] Comment on above: Performed By: #### L 503.6005, L100.0100, L500.4050 ####[facility] [address] [place], [address] Glucose [Mass/Vol] 253 mg/dL High 70-99 [facility] Comment on above: Performed By: #### L 503.6005, L100.0100, L500.4050 ####[facility] [address] [place], [address] Potassium [Moles/Vol] 4.7 mmol/L Normal 3.3-5.1 [facility] Comment on above: Result Comment: Hemo lysis present, Results??could be affected.?? Performed By: #### L 503.6005, L100.0100, L500.4050 ####[facility] [address] [place], [address] Sodium [Moles/Vol] 131 mmol/L Low 133-145 [facility] Comment on above: Performed By: #### L 503.6005, L100.0100, L500.4050 ####[facility] [address] [place], [address] T PROT 6.3 g/dL Normal 5.9-8.4 [facility] Comment on above: Performed By: #### L 503.6005, L100.0100, L500.4050 ####[facility] [address] [place], [address] Urea nitrogen [Mass/Vol] 78 mg/dL High 4-19 [facility] Comment on above: Performed By: #### L 503.6005, L100.0100, L500.4050 ####[facility] [address] [place], [address] Emergency Department Summary on 05-17-2025 Emergency Department Summary Normal [facility] Eosinophil percentageOrdered By: Jerri Castillo on 05-17-2025 Eosinophils/100 WBC (Bld) 0.0 % 0-5 [facility] Erythrocyte distribution wid th ratioOrdered By: Remus Ungpraveen on 05-17-2025 Erythrocyte distribution width (RBC) [Ratio] 15.3 % High 11.6-14.6 [facility] Erythrocyte distribution wid th standard deviationOrdered By: Remus Ungpraveen on 05-17-2025 Erythrocyte distribution width (RBC) [Ratio] 50.8 fl High 35.1-43.9 [facility] Foot min 3 Viewson 5 Foot min 3 Views Normal [facility] Glomerular filtration rate ( GFR) estimation/1.73 sq m using serum, plasma, or whole bOrdered By: Remus Jonathan on 05-17-2025 GFR/1.73 sq M.predicted among non-blacks MDRD (S/P/Bld) [Vol rate/Area] 27 mL/min/{1.73_m2} Low >60 [facility] Hematocrit Auto (Bld) [Volum e fraction]Ordered By: Jerri Castillo on 05-17-2025 Hematocrit (Bld) [Volume fraction] 27.7 % Low 37-47 [facility] Hemoglobin measurementOrdere d By: Jerri Castillo on 05-17-2025 Hemoglobin (Bld) [Mass/Vol] 8.9 g/dL Low 12.0-15.0 [facility] Immature granulocytes/100 WB C Auto (Bld)Ordered By: Jerri Castillo on 05-17-2025 Immature granulocytes/100 WBC (Bld) 0.600 % 0.0-0.9 [facility] Lactic Acidon 05-17-2025 Lactate [Moles/Vol] mmol/L Normal 0.0-2.0 [facility] Comment on above: Order Comment: Y Performed By: #### L 503.6005, L100.0100, L500.4050 ####[facility] [address] [facility] [place], [address] MCV (mean corpuscular volume ) determinationOrdered By: Jerri Castillo on 05-17-2025 MCV (RBC) [Entitic vol] 90.2 fL 81-99 [facility] Magnesium measurement (mass/ volume)Ordered By: Maddie Merchant on 05-17-2025 Magnesium (Unsp spec) [Mass/Vol] 2.6 mg/dL High 1.5-2.2 [facility] Mean corpuscular hemoglobin (MCH) determinationOrdered By: Jerri Castillo on 05-17-2025 MCH (RBC) [Entitic mass] 29.0 pg 27.0-32.0 [facility] Monocyte percentageOrdered B y: Jerri Castillo on 05-17-2025 Monocytes/100 WBC (Bld) 10.6 % High 0-10 [facility] Neutrophil percentageOrdered By: Jerri Castillo on 05-17-2025 Neutrophils/100 WBC (Bld) 80.8 % High 47-70 [facility] No Panel InformationOrdered By: Jerri Castillo on 05-17-2025 83 U/L High <32 [facility] Platelet countOrdered By: Stephanie Castillo on 05-17-2025 Platelets (Bld) [#/Vol] 162 10*3/uL 150-450 [facility] Potassium measurement (mass/ volume)Ordered By: Jerri Castillo on 05-17-2025 Potassium (Unsp spec) [Mass/Vol] 4.7 mmol/L 3.3-5.1 [facility] RBC Auto (Bld) [#/Vol]Ordere d By: Jerri Castillo on 05-17-2025 RBC (Bld) [#/Vol] 3.07 10*6/uL Low 4.2-5.4 [facility] Serum creatinine measurement (mass/volume)Ordered By: Jerri Castillo on 05-17-2025 Creatinine [Mass/Vol] 1.96 mg/dL High 0.70-1.20 [facility] Serum globulin measurementOr dered By: Jerri Castillo on 05-17-2025 Globulin (S) [Mass/Vol] 3.4 g/dL 2.2-4.2 [facility] Serum glucose measurement (m ass/volume)Ordered By: Jerri Castillo on 05-17-2025 Glucose [Mass/Vol] 253 mg/dL High 70-99 [facility] Serum or plasma alanine anaya otransferase (ALT) measurementOrdered By: Jerri Castillo on 05-17-2025 ALT [Catalytic activity/Vol] 36 U/L High <35 [facility] Serum or plasma albumin natalia urement (mass/volume)Ordered By: Jerri Castillo on 05-17-2025 Albumin [Mass/Vol] 2.9 g/dL Low 3.4-4.8 [facility] Serum or plasma albumin/glob ulin mass ratioOrdered By: Jerri Castillo on 05-17-2025 Albumin/Globulin [Mass ratio] 0.8 {ratio} Low 0.9-2.4 [facility] Serum or plasma alkaline chelsie sphatase measurementOrdered By: Jerri Castillo on 05-17-2025 ALP [Catalytic activity/Vol] 54 U/L 35-104 [facility] Serum or plasma calcium natalia urement (mass/volume)Ordered By: Remus Ungur on 05-17-2025 Calcium [Mass/Vol] 9.2 mg/dL 7.6-11.0 [facility] Serum or plasma creatine kin ase activityOrdered By: Remus Ungur on 05-17-2025 CK [Catalytic activity/Vol] 1177 U/L High 24-195 [facility] Serum or plasma urea nitroge n measurement (mass/volume)Ordered By: Remus Ungur on 05-17-2025 Urea nitrogen [Mass/Vol] 78 mg/dL High 4-19 [facility] Sodium levelOrdered By: Remu s Ungur on 05-17-2025 Sodium [Moles/Vol] 131 mmol/L Low 133-145 [facility] Total proteinOrdered By: Rem us Ungur on 05-17-2025 Protein [Mass/Vol] 6.3 g/dL 5.9-8.4 [facility] White blood cell (WBC) count Ordered By: Remus Jonathan on 05-17-2025 WBC (Bld) [#/Vol] 7.1 10*3/uL 4.4-11.0 [facility] MR/BMS.BVSon 05-13-2025 MR/BMS.BVS Normal [facility] Cardiovascular stress test r eportOrdered By: Jarret Quiles on 05-11-2025 Study report [facility] [address] [place] [address] MR#: [id number] Acct: [id number] Name: GELY FULLER Rep #: [id number] : 1950 75 From: Jarret Quiles MD [...] of 55%. This note was generated with Coworksation software. It may contain incorrectwords, spelling, and punctuation that were not noted in checking the note beforesigning. 05/11/25829 Date _ Jarret Quiles MD CC: Dr. Jarret Quiles MD; Dr. Rishi Vasquez, ~ Date Dictated: 05/11/25827 Date Transcribed: 05/11/25827 Doughnut Maker: GABRIELA Signed [facility] Work Phone: Stress Reporton 05-11-2025 Stress Report Normal [facility] Basic Metabolic Profile (BMP )on 05-08-2025 BUN/CRE 40.4 RATIO High 10-20 [facility] Comment on above: Performed By: #### L 500.2500, L100.0500 ####[facility] [address] [place], [address] Calcium [Mass/Vol] 8.8 mg/dL Normal 7.6-11.0 [facility] Comment on above: Performed By: #### L 500.2500, L100.0500 ####[facility] [address] [place], [address] Chloride [Moles/Vol] 104 mmol/L Normal 98-108 [facility] Comment on above: Performed By: #### L 500.2500, L100.0500 ####[facility] [address] [place], [address] CO2 [Moles/Vol] 22.0 mmol/L Normal 21.0-32.0 [facility] Comment on above: Performed By: #### L 500.2500, L100.0500 ####[facility] [address] [place], [address] Creatinine [Mass/Vol] 0.93 mg/dL Normal 0.70-1.20 [facility] Comment on above: Performed By: #### L 500.2500, L100.0500 ####[facility] [address] [place], [address] GAP 12 Normal 5-15 [facility] Comment on above: Performed By: #### L 500.2500, L100.0500 ####[facility] [address] [place], [address] GFR/1.73 sq M.predicted among non-blacks MDRD (S/P/Bld) [Vol rate/Area] 65 mL/min/{1.73_m2} Normal >60 [facility] Comment on above: Result Comment: mL/m in/1.73m2 CKD-EPI Creatinine Equation (2020) Performed By: #### L 500.2500, L100.0500 ####[facility] [address] [place], [address] Glucose [Mass/Vol] 197 mg/dL High 70-99 [facility] Comment on above: Performed By: #### L 500.2500, L100.0500 ####[facility] [address] [place], [address] Potassium [Moles/Vol] 4.4 mmol/L Normal 3.3-5.1 [facility] Comment on above: Performed By: #### L 500.2500, L100.0500 ####[facility] [address] [place], [address] Sodium [Moles/Vol] 138 mmol/L Normal 133-145 [facility] Comment on above: Performed By: #### L 500.2500, L100.0500 ####[facility] [address] [place], [address] Urea nitrogen [Mass/Vol] 38 mg/dL High 4-19 [facility] Comment on above: Performed By: #### L 500.2500, L100.0500 ####[facility] [address] [place], [address] CBC-Complete Blood Cnt No Di ffon 05-08-2025 Erythrocyte distribution width (RBC) [Ratio] 14.9 % High 11.6-14.6 [facility] Comment on above: Performed By: #### L 500.2500, L100.0500 ####[facility] [address] [place], [address] Hematocrit (Bld) [Volume fraction] 32.0 % Low 37-47 [facility] Comment on above: Performed By: #### L 500.2500, L100.0500 ####[facility] [address] [place], [address] Hemoglobin (Bld) [Mass/Vol] 10.4 g/dL Low 12.0-15.0 [facility] Comment on above: Performed By: #### L 500.2500, L100.0500 ####[facility] [address] [place], [address] MCH (RBC) [Entitic mass] 29.6 pg Normal 27.0-32.0 [facility] Comment on above: Performed By: #### L 500.2500, L100.0500 ####[facility] [address] [place], [address] MCHC (RBC) [Mass/Vol] 32.5 g/dL Normal 32-36 [facility] Comment on above: Performed By: #### L 500.2500, L100.0500 ####[facility] [address] [place], [address] MCV (RBC) [Entitic vol] 91.2 fL Normal 81-99 [facility] Comment on above: Performed By: #### L 500.2500, L100.0500 ####[facility] [address] [place], [address] Platelet mean volume (Bld) [Entitic vol] 11.8 fL Normal 6.2-12.0 [facility] Comment on above: Performed By: #### L 500.2500, L100.0500 ####[facility] [address] [place], [address] Platelets (Bld) [#/Vol] 170 10*3/uL Normal 150-450 [facility] Comment on above: Performed By: #### L 500.2500, L100.0500 ####[facility] [address] [place], [address] RBC (Bld) [#/Vol] 3.51 10*6/uL Low 4.2-5.4 [facility] Comment on above: Performed By: #### L 500.2500, L100.0500 ####[facility] [address] [place], [address] RDW SD 50.3 fl High 35.1-43.9 [facility] Comment on above: Performed By: #### L 500.2500, L100.0500 ####[facility] [address] [place], [address] WBC (Bld) [#/Vol] 6.0 10*3/uL Normal 4.4-11.0 [facility] Comment on above: Performed By: #### L 500.2500, L100.0500 ####[facility] [address] [place], [address] MR/PAT.ANEon 05-08-2025 MR/PAT.ANE Normal [facility] Cardiology Visit Reporton Cardiology Visit Report Normal [facility] GELY FULLER ([id number]) 1950 F Date Time Provider Department 05/06/25 RISHI VASQUEZ FAMWS During your visit today, we recorded the following information about you: Sara Solis, RN 05/06/2025 12:30 PM Signed Pt called in and reports she went in to [facility] and they told her that her insurance doesn't cover the Glipizide 5 mg tablets without a PA. Pt states she got them before and her insurance covered them. Pt states she paid out of pocket for 5 days worth of pills. Prior Authorization Documentation Prior authorization requested for the following medication: Medication: Glipizide Provider: Sushma Artis NP Insurance Company Name: [employer] Phone number:[phone] Patient ID number: [id number] Pharmacy Name: [facility] Telephone number: [phone] Any RodriguezANGELO 05/06/2025 1:17 PM Signed Electronic PA requested. EraAny [email or web address] 05/06/2025 1:21 PM Signed This is the PA response. Close reason: Product not covered by this plan. Prior Authorization not available. Payer: [employer] [phone] Note from payer: This drug/product is not covered under the pharmacy benefit. Prior Authorization is not available. EraAny [email or web address] 05/06/2025 2:55 PM Signed Called pt and [...] 1 tablet by mouth once daily. - Ubjwhpto-Jovf-Yfp-Folic Acid 18-0.4 mg tab Take 1 tablet [...] 10/24/2016 CKD (more content not included)... Normal [facility] CNOVon 04-30-2025 CNOV Office Visit (FAMWS ) -------- GELY FULLER ([id number]) 1950 F Date Time Provider Department 04/30/25 11:20 AM [facility] During your visit today, we recorded the following information about you: Pulse Respiration Blood pressure Weight 77/minute 12/minute 130/60 68.9 kg Ld Artis APRN.CNP 04/30/2025 12:26 PM Signed HISTORY OF [...] wound dressing changes - Recent visit to spring floor service worker Dr. 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 Ortiz [facility]-03/25/2020 left mild, right moderate Multiple thyroid nodules last US 01/2015 Peripheral artery disease due to Diabetes mellitus, Dr. Kwaku Moscoso Rotator cuff syndrome of left shoulder Dr. Deluna [facility] PAST SURGICAL HISTORY Procedure Laterality Date [...] 04-08-13 ROTATOR CUFF REPA[facility] 03/11[facility]D ABDL PEL/LXTR [...] 650 m (more content not included)... Normal [facility] Thyroidon 04-27-2025 Thyroid Normal [facility] Duplex ultrasound of carotid artery reportOrdered By: Russell Clement on 04-23-2025 Study report [facility] [address] [place] [address] Carotid Duplex Ultrasound 04/20/25 1337 MR#: [id number] Acct: [id number] Name: JONNYGELY Rep #:[id number] : 1950 75 From: Russell Abraham Attending [...] the left vertebral artery. Procedure Carotid Duplex 78149. This is a Carotid Duplex examination using B-mode, color flow and specral Doppler. Exam performed in department. VL/Carotid Duplex Ultrasound Interpretation Summary Mild (<50%) stenosis right extracranial internal carotid. Moderate (50-69%) stenosis left extracranial internal carotid. Patent and antegrade vertebrals bilaterally. Ordering Physician: Abena Fiore Referring Physician: Rishi Vasquez Performed By: Adelia Bergeron, RDCS, RVT 04/23/25 1037 Date _ Russell Clement MD CC: LILLIAM Gilmore; Dr. Rishi Vasquez, DO ~ Date Dictated: 04/20/25 1337 Date Transcribed: 04/23/25 1037 Doughnut Maker: Signed [facility] Work Phone: Carotid Duplex Ultrasoundon 04-20-2025 Carotid Duplex Ultrasound Normal [facility] CNPNon 04-16-2025 CNPN Telephone (FAMPWS) -------- GELY FULLER ([id number]) 1950 F Date Time Provider Department 04/16/25 RISHI VAQSUEZ FAMPWS During your visit today, we recorded the following information about you: Hina Man RN 04/16/2025 9:34 AM Signed Jessika calling from [facility] to report plan of care for patient and correction will continue visit patient 1 time a week for 5 weeks. long-term will work with patient on wound care to bilateral lower extremities. Patient is being follow by Dr. Irene for wound care. No call back needed. Hina aMn RN Allergies As of Date: 04/16/2025 Noted [...] 1 tablet by mouth once daily. - Mnektkkd-Niee-Aur-Folic Acid 18-0.4 mg tab Take 1 tablet [...] [L72.3, L08.9] 02/26/2019 Coronary artery disease involving [place] heart *05/28/2019 Abnormal urine odor [R82.90] 05/28/2019 [...] mammogram for malignant*12/05/2024 Encounter Status:Closed by HINA MAN on 04/16/25 Normal [facility] Anion gap in Serum or Plasma Ordered By: Russell Clement on 04-15-2025 Anion gap [Moles/Vol] 13 mmol/L 5-15 [facility] BUN/creatinine ratioOrdered By: Russell Clemnet on 04-15-2025 Urea nitrogen/Creatinine [Mass ratio] 33.4 mg/mg High 10- [facility] Basic Metabolic Profile (BMP )on 04-15-2025 BUN/CRE 33.4 RATIO High - [facility] Comment on above: Performed By: #### L 100.0500, L500.2500 ####[facility] [address] [place], [address] Calcium [Mass/Vol] 9.3 mg/dL Normal 7.6-11.0 [facility] Comment on above: Performed By: #### L 100.0500, L500.2500 ####[facility] [address] [place], [address] Chloride [Moles/Vol] 106 mmol/L Normal 98-108 [facility] Comment on above: Performed By: #### L 100.0500, L500.2500 ####[facility] [address] [place], [address] CO2 [Moles/Vol] 21.9 mmol/L Normal 21.0-32.0 [facility] Comment on above: Performed By: #### L 100.0500, L500.2500 ####[facility] [address] [place], [address] Creatinine [Mass/Vol] 1.07 mg/dL Normal 0.70-1.20 [facility] Comment on above: Performed By: #### L 100.0500, L500.2500 ####[facility] [address] [place], [address] ECRCL 48.30 ml/min Low 50-250 [facility] Comment on above: Performed By: #### L 100.0500, L500.2500 ####[facility] [address] [place], [address] GAP 13 Normal 5-15 [facility] Comment on above: Performed By: #### L 100.0500, L500.2500 ####[facility] [address] [place], [address] GFR/1.73 sq M.predicted among non-blacks MDRD (S/P/Bld) [Vol rate/Area] 55 mL/min/{1.73_m2} Low >60 [facility] Comment on above: Result Comment: mL/m in/1.73m2 CKD-EPI Creatinine Equation (2020) Performed By: #### L 100.0500, L500.2500 ####[facility] [address] [place], [address] Glucose [Mass/Vol] 152 mg/dL High 70-99 [facility] Comment on above: Performed By: #### L 100.0500, L500.2500 ####[facility] [address] [place], [address] Potassium [Moles/Vol] 4.9 mmol/L Normal 3.3-5.1 [facility] Comment on above: Performed By: #### L 100.0500, L500.2500 ####[facility] [address] [place], [address] Sodium [Moles/Vol] 140 mmol/L Normal 133-145 [facility] Comment on above: Performed By: #### L 100.0500, L500.2500 ####[facility] [address] [place], [address] Urea nitrogen [Mass/Vol] 36 mg/dL High 4-19 [facility] Comment on above: Performed By: #### L 100.0500, L500.2500 ####[facility] [address] [place], [address] CBC-Complete Blood Cnt No Mary Beth unger 04-15-2025 Erythrocyte distribution width (RBC) [Ratio] 15.8 % High 11.6-14.6 [facility] Comment on above: Performed By: #### L 100.0500, L500.2500 ####[facility] [address] [place], [address] Hematocrit (Bld) [Volume fraction] 38.4 % Normal 37-47 [facility] Comment on above: Performed By: #### L 100.0500, L500.2500 ####[facility] [address] [place], [address] Hemoglobin (Bld) [Mass/Vol] 12.2 g/dL Normal 12.0-15.0 [facility] Comment on above: Performed By: #### L 100.0500, L500.2500 ####[facility] [address] [place], [address] MCH (RBC) [Entitic mass] 29.5 pg Normal 27.0-32.0 [facility] Comment on above: Performed By: #### L 100.0500, L500.2500 ####[facility] [address] [place], [address] MCHC (RBC) [Mass/Vol] 31.8 g/dL Low 32-36 [facility] Comment on above: Performed By: #### L 100.0500, L500.2500 ####[facility] [address] [place], [address] MCV (RBC) [Entitic vol] 92.8 fL Normal 81-99 [facility] Comment on above: Performed By: #### L 100.0500, L500.2500 ####[facility] [address] [place], [address] Platelet mean volume (Bld) [Entitic vol] 11.4 fL Normal 6.2-12.0 [facility] Comment on above: Performed By: #### L 100.0500, L500.2500 ####[facility] [address] [place], [address] Platelets (Bld) [#/Vol] 205 10*3/uL Normal 150-450 [facility] Comment on above: Performed By: #### L 100.0500, L500.2500 ####[facility] [address] [place], [address] RBC (Bld) [#/Vol] 4.14 10*6/uL Low 4.2-5.4 [facility] Comment on above: Performed By: #### L 100.0500, L500.2500 ####[facility] [address] [place], [address] RDW SD 53.9 fl High 35.1-43.9 [facility] Comment on above: Performed By: #### L 100.0500, L500.2500 ####[facility] [address] [place], [address] WBC (Bld) [#/Vol] 7.7 10*3/uL Normal 4.4-11.0 [facility] Comment on above: Performed By: #### L 100.0500, L500.2500 ####[facility] [address] [place], [address] CNPChandrika 04-15-2025 [facility] Telephone (CHANELL) -------- GELY FULLER ([id number]) 1950 F Date Time Provider Department 04/15/25 LD ARTIS [facility] During your visit today, we recorded [...] 1 tablet by mouth once daily. - Hsdyxwtf-Zthk-Tpz-Folic Acid 18-0.4 mg tab Take 1 tablet [...] [L72.3, L08.9] 02/26/2019 Coronary artery disease involving [place] heart *05/28/2019 Abnormal urine odor [R82.90] 05/28/2019 [...] mammogram for malignant*12/05/2024 Encounter Status:Closed by LD ARTIS on 04/15/25 Normal [facility] Carbon dioxide, total [Moles /volume] in Central venous bloodOrdered By: Russell Clement on 04-15-2025 CO2 [Moles/Vol] 21.9 mmol/L 21.0-32.0 [facility] Chloride assayOrdered By: Julien Clmeent on 04-15-2025 Chloride [Moles/Vol] 106 mmol/L 98-108 [facility] Erythrocyte distribution wid th ratioOrdered By: Russell Clement on 04-15-2025 Erythrocyte distribution width (RBC) [Ratio] 15.8 % High 11.6-14.6 [facility] Erythrocyte distribution wid th standard deviationOrdered By: Russell Clement on 04-15-2025 Erythrocyte distribution width (RBC) [Ratio] 53.9 fl High 35.1-43.9 [facility] Glomerular filtration rate ( GFR) estimation/1.73 sq m using serum, plasma, or whole bOrdered By: Russell Clement on 04-15-2025 GFR/1.73 sq M.predicted among non-blacks MDRD (S/P/Bld) [Vol rate/Area] 55 mL/min/{1.73_m2} Low >60 [facility] Comment on above: mL/min/1.73m2 CKD-EP I Creatinine Equation (2020) Hematocrit Auto (Bld) [Volum e fraction]Ordered By: Russell Clement on 04-15-2025 Hematocrit (Bld) [Volume fraction] 38.4 % 37-47 [facility] Hemoglobin measurementOrdere d By: Russell Clement on 04-15-2025 Hemoglobin (Bld) [Mass/Vol] 12.2 g/dL 12.0-15.0 [facility] MCV (mean corpuscular volume ) determinationOrdered By: Russell Clement on 04-15-2025 MCV (RBC) [Entitic vol] 92.8 fL 81-99 [facility] Mean corpuscular hemoglobin (MCH) determinationOrdered By: Russell Clement on 04-15-2025 MCH (RBC) [Entitic mass] 29.5 pg 27.0-32.0 [facility] Mean corpuscular hemoglobin concentration (MCHC) determinationOrdered By: Russell Clement on 04-15-2025 MCHC (RBC) [Mass/Vol] 31.8 g/dL Low 32-36 [facility] Mean platelet volume determi nationOrdered By: Russell Clement on 04-15-2025 Platelet mean volume (Bld) [Entitic vol] 11.4 fL 6.2-12.0 [facility] Operative Reporton Operative Report Normal [facility] Platelet countOrdered By: Julien Clement on 04-15-2025 Platelets (Bld) [#/Vol] 205 10*3/uL 150-450 [facility] Potassium measurement (mass/ volume)Ordered By: Russell Clement on 04-15-2025 Potassium (Unsp spec) [Mass/Vol] 4.9 mmol/L 3.3-5.1 [facility] RBC Auto (Bld) [#/Vol]Ordere d By: Russell Clement on 04-15-2025 RBC (Bld) [#/Vol] 4.14 10*6/uL Low 4.2-5.4 [facility] Serum creatinine measurement (mass/volume)Ordered By: Russell Clement on 04-15-2025 Creatinine [Mass/Vol] 1.07 mg/dL 0.70-1.20 [facility] Serum glucose measurement (m ass/volume)Ordered By: Russell Clement on 04-15-2025 Glucose [Mass/Vol] 152 mg/dL High 70-99 [facility] Serum or plasma calcium natalia urement (mass/volume)Ordered By: Russell Clement on 04-15-2025 Calcium [Mass/Vol] 9.3 mg/dL 7.6-11.0 [facility] Serum or plasma urea nitroge n measurement (mass/volume)Ordered By: Russell Clement on 04-15-2025 Urea nitrogen [Mass/Vol] 36 mg/dL High 4-19 [facility] Sodium levelOrdered By: Russell Clement on 04-15-2025 Sodium [Moles/Vol] 140 mmol/L 133-145 [facility] White blood cell (WBC) count Ordered By: Russell Clement on 04-15-2025 WBC (Bld) [#/Vol] 7.7 10*3/uL 4.4-11.0 [facility] CNPNon 04-10-2025 CNPN Telephone (FAMPWS) -------- GELY FULLER ([id number]) 1950 F Date Time Provider Department 04/10/25 LD ARTIS During your visit today, we recorded the following information about you: Silvestre Martinez MA 04/27/2025 9:42 AM Signed See update from pt regarding blood sugars and medication change. Please advise. ALFONSO Nicole Amanda, RN 04/27/2025 11:39 AM Signed Per providers request Pt was scheduled with Ld Artis NP on 04/30/25. Pt will bring BS [...] or 3b CKD (HCC) [N18.30] Order(s):HEMOGLOBIN A1C [YEWTQ1M] Order #: [id number] FUTURE COMPREHENSIVE METABOLIC PANEL [SQCMP] Order #: [id number] FUTURE glipiZIDE (GLUCOTROL XL) 5 mg 24 [...] 1 tablet by mouth once daily. - Xqfjxasm-Gfbh-Ujj-Folic Acid 18-0.4 mg tab Take 1 tablet by mouth once daily. - omega-3 fatty acids 1,000 mg cap Take 1 capsule by mouth once daily. - Aspirin 81 mg Tab Take 1 tablet by mouth once daily. Take with food. Medication notes this encounter METFORMIN 500 MG TABLET >> Ld Artis, [employer] 04/10/2025 4:[address] solomon [...] [L72.3, L08.9] 02/26/2019 Coronary artery disease involving [place] heart *05/28/2019 Abnormal urine odor [R82.90] 05/28/2019 [...] for prudencio (more content not included)... Normal [facility] Basic Metabolic Profile (BMP )on 04-09-2025 BUN Normal 4-19 [facility] Comment on above: Result Comment: Canc elled via OM: Order cancelled - Patient discharged Performed By: #### L 100.0100, L500.2500 ####[facility] [address] [place], [address] BUN/CRE Normal 10-20 [facility] Comment on above: Result Comment: Canc elled via OM: Order cancelled - Patient discharged Performed By: #### L 100.0100, L500.2500 ####[facility] [address] [place], [address] Calcium Normal 7.6-11.0 [facility] Comment on above: Result Comment: Canc elled via OM: Order cancelled - Patient discharged Performed By: #### L 100.0100, L500.2500 ####[facility] [address] [place], [address] CL Normal 98-108 [facility] Comment on above: Result Comment: Canc elled via OM: Order cancelled - Patient discharged Performed By: #### L 100.0100, L500.2500 ####[facility] [address] [place], [address] CO2 Normal 21.0-32.0 [facility] Comment on above: Result Comment: Canc elled via OM: Order cancelled - Patient discharged Performed By: #### L 100.0100, L500.2500 ####[facility] [address] [place], [address] CREAT,SERUM Normal 0.70-1.20 [facility] Comment on above: Result Comment: Canc elled via OM: Order cancelled - Patient discharged Performed By: #### L 100.0100, L500.2500 ####[facility] [address] [place], [address] eGFR Normal >60 [facility] Comment on above: Result Comment: Canc elled via OM: Order cancelled - Patient discharged Performed By: #### L 100.0100, L500.2500 ####[facility] [address] [place], [address] GAP Normal 5-15 [facility] Comment on above: Result Comment: Canc elled via OM: Order cancelled - Patient discharged Performed By: #### L 100.0100, L500.2500 ####[facility] [address] [place], [address] GLU Normal 70-99 [facility] Comment on above: Result Comment: Canc elled via OM: Order cancelled - Patient discharged Performed By: #### L 100.0100, L500.2500 ####[facility] [address] [place], [address] Potassium Normal 3.3-5.1 [facility] Comment on above: Result Comment: Canc elled via OM: Order cancelled - Patient discharged Performed By: #### L 100.0100, L500.2500 ####[facility] [address] [place], [address] Basic Metabolic Profile (BMP) Normal 133-145 [facility] Comment on above: Result Comment: Canc elled via OM: Order cancelled - Patient discharged Performed By: #### L 100.0100, L500.2500 ####[facility] [address] [place], [address] CBC W/Diff, Automatedon 05-2 Absolute Neut Normal 2.0-7.7 [facility] Comment on above: Result Comment: Canc elled via OM: Order cancelled - Patient discharged Performed By: #### L 100.0100, L500.2500 ####[facility] [address] [place], [address] HCT Normal 37-47 [facility] Comment on above: Result Comment: Canc elled via OM: Order cancelled - Patient discharged Performed By: #### L 100.0100, L500.2500 ####[facility] [address] [place], [address] HGB Normal 12.0-15.0 [facility] Comment on above: Result Comment: Canc elled via OM: Order cancelled - Patient discharged Performed By: #### L 100.0100, L500.2500 ####[facility] [address] [place], [address] MCH Normal 27.0-32.0 [facility] Comment on above: Result Comment: Canc elled via OM: Order cancelled - Patient discharged Performed By: #### L 100.0100, L500.2500 ####[facility] [address] [place], [address] MCHC Normal 32-36 [facility] Comment on above: Result Comment: Canc elled via OM: Order cancelled - Patient discharged Performed By: #### L 100.0100, L500.2500 ####[facility] [address] [place], [address] MCV Normal 81-99 [facility] Comment on above: Result Comment: Canc elled via OM: Order cancelled - Patient discharged Performed By: #### L 100.0100, L500.2500 ####[facility] [address] [place], [address] NEUT% Normal 47-70 [facility] Comment on above: Result Comment: Canc elled via OM: Order cancelled - Patient discharged Performed By: #### L 100.0100, L500.2500 ####[facility] [address] [place], [address] PLT Normal 150-450 [facility] Comment on above: Result Comment: Canc elled via OM: Order cancelled - Patient discharged Performed By: #### L 100.0100, L500.2500 ####[facility] [address] [place], [address] RBC Normal 4.2-5.4 [facility] Comment on above: Result Comment: Canc elled via OM: Order cancelled - Patient discharged Performed By: #### L 100.0100, L500.2500 ####[facility] [address] [place], [address] RDW CV Normal 11.6-14.6 [facility] Comment on above: Result Comment: Canc elled via OM: Order cancelled - Patient discharged Performed By: #### L 100.0100, L500.2500 ####[facility] [address] [place], [address] RDW SD Normal 35.1-43.9 [facility] Comment on above: Result Comment: Canc elled via OM: Order cancelled - Patient discharged Performed By: #### L 100.0100, L500.2500 ####[facility] [address] [place], [address] WBC Normal 4.4-11.0 [facility] Comment on above: Result Comment: Canc elled via OM: Order cancelled - Patient discharged Performed By: #### L 100.0100, L500.2500 ####[facility] [address] [place], [address] MR/BMS.BVSon 04-03-2025 MR/BMS.BVS Normal [facility] Basic Metabolic Profile (BMP )on 04-02-2025 BUN Normal 4-19 [facility] Comment on above: Result Comment: Canc elled via OM: Order cancelled - Patient discharged Performed By: #### L 500.2500, L100.0100 ####[facility] [address] [place], [address] BUN/CRE Normal 10-20 [facility] Comment on above: Result Comment: Canc elled via OM: Order cancelled - Patient discharged Performed By: #### L 500.2500, L100.0100 ####[facility] [address] [place], [address] Calcium Normal 7.6-11.0 [facility] Comment on above: Result Comment: Canc elled via OM: Order cancelled - Patient discharged Performed By: #### L 500.2500, L100.0100 ####[facility] [address] [place], [address] CL Normal 98-108 [facility] Comment on above: Result Comment: Canc elled via OM: Order cancelled - Patient discharged Performed By: #### L 500.2500, L100.0100 ####[facility] [address] [place], [address] CO2 Normal 21.0-32.0 [facility] Comment on above: Result Comment: Canc elled via OM: Order cancelled - Patient discharged Performed By: #### L 500.2500, L100.0100 ####[facility] [address] [place], [address] CREAT,SERUM Normal 0.70-1.20 [facility] Comment on above: Result Comment: Canc elled via OM: Order cancelled - Patient discharged Performed By: #### L 500.2500, L100.0100 ####[facility] [address] [place], [address] eGFR Normal >60 [facility] Comment on above: Result Comment: Canc elled via OM: Order cancelled - Patient discharged Performed By: #### L 500.2500, L100.0100 ####[facility] [address] [place], [address] GAP Normal 5-15 [facility] Comment on above: Result Comment: Canc elled via OM: Order cancelled - Patient discharged Performed By: #### L 500.2500, L100.0100 ####[facility] [address] [place], [address] GLU Normal 70-99 [facility] Comment on above: Result Comment: Canc elled via OM: Order cancelled - Patient discharged Performed By: #### L 500.2500, L100.0100 ####[facility] [address] [place], [address] Potassium Normal 3.3-5.1 [facility] Comment on above: Result Comment: Canc elled via OM: Order cancelled - Patient discharged Performed By: #### L 500.2500, L100.0100 ####[facility] [address] [place], [address] Basic Metabolic Profile (BMP) Normal 133-145 [facility] Comment on above: Result Comment: Canc elled via OM: Order cancelled - Patient discharged Performed By: #### L 500.2500, L100.0100 ####[facility] [address] [place], [address] CBC W/Diff, Automatedon 05-1 Absolute Neut Normal 2.0-7.7 [facility] Comment on above: Result Comment: Canc elled via OM: Order cancelled - Patient discharged Performed By: #### L 500.2500, L100.0100 ####[facility] [address] [place], [address] HCT Normal 37-47 [facility] Comment on above: Result Comment: Canc elled via OM: Order cancelled - Patient discharged Performed By: #### L 500.2500, L100.0100 ####[facility] [address] [place], [address] HGB Normal 12.0-15.0 [facility] Comment on above: Result Comment: Canc elled via OM: Order cancelled - Patient discharged Performed By: #### L 500.2500, L100.0100 ####[facility] [address] [place], [address] MCH Normal 27.0-32.0 [facility] Comment on above: Result Comment: Canc elled via OM: Order cancelled - Patient discharged Performed By: #### L 500.2500, L100.0100 ####[facility] [address] [place], [address] MCHC Normal 32-36 [facility] Comment on above: Result Comment: Canc elled via OM: Order cancelled - Patient discharged Performed By: #### L 500.2500, L100.0100 ####[facility] [address] [place], [address] MCV Normal 81-99 [facility] Comment on above: Result Comment: Canc elled via OM: Order cancelled - Patient discharged Performed By: #### L 500.2500, L100.0100 ####[facility] [address] [place], [address] NEUT% Normal 47-70 [facility] Comment on above: Result Comment: Canc elled via OM: Order cancelled - Patient discharged Performed By: #### L 500.2500, L100.0100 ####[facility] [address] [place], [address] PLT Normal 150-450 [facility] Comment on above: Result Comment: Canc elled via OM: Order cancelled - Patient discharged Performed By: #### L 500.2500, L100.0100 ####[facility] [address] [place], [address] RBC Normal 4.2-5.4 [facility] Comment on above: Result Comment: Canc elled via OM: Order cancelled - Patient discharged Performed By: #### L 500.2500, L100.0100 ####[facility] [address] [place], [address] RDW CV Normal 11.6-14.6 [facility] Comment on above: Result Comment: Canc elled via OM: Order cancelled - Patient discharged Performed By: #### L 500.2500, L100.0100 ####[facility] [address] [place], [address] RDW SD Normal 35.1-43.9 [facility] Comment on above: Result Comment: Canc elled via OM: Order cancelled - Patient discharged Performed By: #### L 500.2500, L100.0100 ####[facility] [address] [place], [address] WBC Normal 4.4-11.0 [facility] Comment on above: Result Comment: Canc elled via OM: Order cancelled - Patient discharged Performed By: #### L 500.2500, L100.0100 ####[facility] [address] [place], [address] CNOVon 03-27-2025 CNOV Office Visit (JOHANAWS ) -------- GELY FULLER ([id number]) 1950 F Date Time Provider Department 03/27/25 10:00 AM YUMIKO WHITEHEAD During your visit today, we recorded the following information about you: Pulse Respiration Blood pressure 74/minute 16/minute 134/68 Yumiko Whitehead APRN.CNP 03/27/2025 11:01 AM Signed 03/26/2025 Patient presents with: ER F/U: [facility] ED -03/20/25 Multiple falls, gangrene SADIE feet SUBJECTIVE: This is a 75 year old that is here today for Above Complaints. 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 Ortiz [facility]-03/25/2020 left mild, right moderate Multiple thyroid nodules last US 01/2015 Peripheral artery disease (HCC) due to Diabetes mellitus, Dr. Kwaku Moscoso Rotator cuff syndrome of left shoulder Dr. Deluna [facility] ALLERGIES Sulfa (Sulfonamide Antibiotics) MEDICATIONS Current [...] Take 1 tablet by mouth once daily. Hrhdhesj-Wmbv-Gwy-Folic Acid 18-0.4 mg tab Take 1 tablet [...] Urine Albumin:Creatinine Ratio due on 05/30/2024 Covid-19 Vaccine(3 - 2023-25 season) due on 07/20/2024 Diabetic Foot Exam due on 04/02/2025 Mammogram Screening due on 06/03/2025 HbA1C due on 05/31/2025 Dilated Retinal Exam due on (more content not included)... [facility] C[facility]N Telephone (FAMPWS) -------- GELY FULLER ([id number]) 1950 F Date Time Provider Department 03/27/25 YUMIKO WHITEHEAD During your visit today, we recorded the following information about you: Yumiko Whitehead APRN.CNP 03/27/2025 10:59 AM Signed Please fax printed order for walker to [employer]. In my outbox. Yumiko Whitehead APRN.Michaela Moffett MA 03/30/2025 10:04 AM Signed Order, OV, discharge summary faxed to [employer]. Michaela Millan MA Allergies As of Date: [...] 1 tablet by mouth once daily. - Jpganvlv-Yuqk-Smx-Folic Acid 18-0.4 mg tab Take 1 tablet [...] [L72.3, L08.9] 02/26/2019 Coronary artery disease involving [place] heart *05/28/2019 Abnormal urine odor [R82.90] 05/28/2019 [...] Status:Closed by MICHAELA MILLAN on 03/30/25 Normal [facility] Basic Metabolic Profile (BMP )on 03-26-2025 BUN Normal - [facility] Comment on above: Result Comment: Canc elled via OM: Order cancelled - Patient discharged Performed By: #### L 100.0100, L500.2500 ####[facility] [address] [place], [address] BUN/CRE Normal 10-20 [facility] Comment on above: Result Comment: Canc elled via OM: Order cancelled - Patient discharged Performed By: #### L 100.0100, L500.2500 ####[facility] [address] [place], [address] Calcium Normal 7.6-11.0 [facility] Comment on above: Result Comment: Canc elled via OM: Order cancelled - Patient discharged Performed By: #### L 100.0100, L500.2500 ####[facility] [address] [place], [address] CL Normal 98-108 [facility] Comment on above: Result Comment: Canc elled via OM: Order cancelled - Patient discharged Performed By: #### L 100.0100, L500.2500 ####[facility] [address] [place], [address] CO2 Normal 21.0-32.0 [facility] Comment on above: Result Comment: Canc elled via OM: Order cancelled - Patient discharged Performed By: #### L 100.0100, L500.2500 ####[facility] [address] [place], [address] CREAT,SERUM Normal 0.70-1.20 [facility] Comment on above: Result Comment: Canc elled via OM: Order cancelled - Patient discharged Performed By: #### L 100.0100, L500.2500 ####[facility] [address] [place], [address] eGFR Normal >60 [facility] Comment on above: Result Comment: Canc elled via OM: Order cancelled - Patient discharged Performed By: #### L 100.0100, L500.2500 ####[facility] [address] [place], [address] GAP Normal 5-15 [facility] Comment on above: Result Comment: Canc elled via OM: Order cancelled - Patient discharged Performed By: #### L 100.0100, L500.2500 ####[facility] [address] [place], [address] GLU Normal 70-99 [facility] Comment on above: Result Comment: Canc elled via OM: Order cancelled - Patient discharged Performed By: #### L 100.0100, L500.2500 ####[facility] [address] [place], [address] Potassium Normal 3.3-5.1 [facility] Comment on above: Result Comment: Canc elled via OM: Order cancelled - Patient discharged Performed By: #### L 100.0100, L500.2500 ####[facility] [address] [place], [address] Basic Metabolic Profile (BMP) Normal 133-145 [facility] Comment on above: Result Comment: Canc elled via OM: Order cancelled - Patient discharged Performed By: #### L 100.0100, L500.2500 ####[facility] [address] [place], [address] CBC W/Diff, Automatedon 05-0 8-2024 Absolute Neut Normal 2.0-7.7 [facility] Comment on above: Result Comment: Canc elled via OM: Order cancelled - Patient discharged Performed By: #### L 100.0100, L500.2500 ####[facility] [address] [place], [address] HCT Normal 37-47 [facility] Comment on above: Result Comment: Canc elled via OM: Order cancelled - Patient discharged Performed By: #### L 100.0100, L500.2500 ####[facility] [address] [place], [address] HGB Normal 12.0-15.0 [facility] Comment on above: Result Comment: Canc elled via OM: Order cancelled - Patient discharged Performed By: #### L 100.0100, L500.2500 ####[facility] [address] [place], [address] MCH Normal 27.0-32.0 [facility] Comment on above: Result Comment: Canc elled via OM: Order cancelled - Patient discharged Performed By: #### L 100.0100, L500.2500 ####[facility] [address] [place], [address] MCHC Normal 32-36 [facility] Comment on above: Result Comment: Canc elled via OM: Order cancelled - Patient discharged Performed By: #### L 100.0100, L500.2500 ####[facility] [address] [place], [address] MCV Normal 81-99 [facility] Comment on above: Result Comment: Canc elled via OM: Order cancelled - Patient discharged Performed By: #### L 100.0100, L500.2500 ####[facility] [address] [place], [address] NEUT% Normal 47-70 [facility] Comment on above: Result Comment: Canc elled via OM: Order cancelled - Patient discharged Performed By: #### L 100.0100, L500.2500 ####[facility] [address] [place], [address] PLT Normal 150-450 [facility] Comment on above: Result Comment: Canc elled via OM: Order cancelled - Patient discharged Performed By: #### L 100.0100, L500.2500 ####[facility] [address] [place], [address] RBC Normal 4.2-5.4 [facility] Comment on above: Result Comment: Canc elled via OM: Order cancelled - Patient discharged Performed By: #### L 100.0100, L500.2500 ####[facility] [address] [place], [address] RDW CV Normal 11.6-14.6 [facility] Comment on above: Result Comment: Canc elled via OM: Order cancelled - Patient discharged Performed By: #### L 100.0100, L500.2500 ####[facility] [address] [place], [address] RDW SD Normal 35.1-43.9 [facility] Comment on above: Result Comment: Canc elled via OM: Order cancelled - Patient discharged Performed By: #### L 100.0100, L500.2500 ####[facility] [address] [place], [address] WBC Normal 4.4-11.0 [facility] Comment on above: Result Comment: Canc elled via OM: Order cancelled - Patient discharged Performed By: #### L 100.0100, L500.2500 ####[facility] [address] [place], [address] CNPNon 03-26-2025 CNPN Telephone (FAMPWS) -------- GELY FULLER ([id number]) 1950 F Date Time Provider Department 03/26/25 RISHI VASQUEZ FAMPWS During your visit today, we recorded the following information about you: Alexandria Jacome, RN 03/26/2025 12:50 PM Signed [facility] HH- reporting updated POC: plans to [...] at appointment tomorrow. Thank you, Clary Andres APRN.[employer] Allergies As of Date: 03/26/2025 Noted Allergy Reaction SULFA (SULFONAMIDE ANTIBIOTICS) 01/13/2013 18 - Unknown Comments: childhood Date Reviewed: 12/05/2024 Reviewed by: Annmarie Adhikari LPN - Fully Assessed Reason for Visit: [...] 1 tablet by mouth once daily. - Kqoyjvie-Tgdk-Iln-Folic Acid 18-0.4 mg tab Take 1 tablet [...] [L72.3, L08.9] 02/26/2019 Coronary artery disease involving [place] heart *05/28/2019 Abnormal urine odor [R82.90] 05/28/2019 [...] Status:Closed by SELMA GALEANO on 03/26/25 [facility] (FAMPWS) -------- GELY FULLER ([id number]) 1950 F Date Time Provider Department 03/24/[facility] During your visit today, we recorded the following information about you: Clemencia Chapman RN 03/24/2025 3:02 PM Signed Ishaan PT calling from [facility] to report plan of care for patient [...] childhood Date Reviewed: 12/05/2024 Reviewed by: Annmarie Adhikari LPN - Fully Assessed Reason for Visit: [facility] PT POC [Other] Prescriptions as of [...] 1 tablet by mouth once daily. - Sxlxaifp-Jmmm-Yno-Folic Acid 18-0.4 mg tab Take 1 tablet [...] [L72.3, L08.9] 02/26/2019 Coronary artery disease involving [place] heart *05/28/2019 Abnormal urine odor [R82.90] 05/28/2019 [...] Status:Closed by CLEMENCIA CHAPMAN on 03/25/25 Normal [facility] CNPChandrika 03-23-2025 CNPN Telephone (FAMPWS) -------- JONNYROBERTOGELY Melinda ([id number]) 1950 F Date Time Provider Department 03/23/25 VASQUEZRISHIPJOHNY During your visit today, we recorded the following information about you: Melly Pinon LPN 03/23/2025 1:34 PM Signed Tatum with [facility] Nursing calls to report she saw [...] childhood Date Reviewed: 12/05/2024 Reviewed by: Annmarie Adhikari LPN - Fully Assessed Reason for Visit: [...] 1 tablet by mouth once daily. - Qvuzpnit-Tohe-Axd-Folic Acid 18-0.4 mg tab Take 1 tablet [...] [L72.3, L08.9] 02/26/2019 Coronary artery disease involving [place] heart *05/28/2019 Abnormal urine odor [R82.90] 05/28/2019 [...] Status:Closed by JESENIA MCGEE on 03/24/25 Normal [facility] Bedside Glucoseon 03-20-2025 FINGERSTICK GLU 155 mg/dL High 74-106 [facility] Comment on above: Result Comment: JEREMIAS PADILLA OF PATIENT CARE PER NURSING PROTOCOL Performed By: #### L 501.080 ####[facility] [address] [place], [address] [facility] CNPN Telephone (FAMPWS) -------- GELY FULLER ([id number]) 1950 F Date Time Provider Department 03/20/25 RISHI VASQUEZ FAMPWS During your visit today, we recorded the following information about you: Clemencia Chapman RN 03/20/2025 12:55 PM Signed Yvonne with [facility] HH calls to ask if provider would be willing to follow their discharge orders for SN, PT, OT. Patient discharged home today from [facility] after having hospitalization and rehab for falls and UTI. Call back number is [phone]. GORGE Bo Jordan L, DO 03/20/2025 5:03 PM Signed Yes DO Kit Ernst Krystle, RN 03/23/2025 8:30 AM Signed Call placed to Yvonne and notified of below. Clemencia Chapman RN Allergies As of Date: 03/20/2025 Noted Allergy Reaction SULFA (SULFONAMIDE ANTIBIOTICS) 01/13/2013 18 - Unknown Comments: childhood Date Reviewed: 12/05/2024 Reviewed by: Annmarie Adhikari LPN - Fully Assessed Reason for Visit: [...] 1 tablet by mouth once daily. - Rmedvrma-Evjh-Jhj-Folic Acid 18-0.4 mg tab Take 1 tablet [...] [L72.3, L08.9] 02/26/2019 Coronary artery disease involving [place] heart *05/28/2019 Abnormal urine odor [R82.90] 05/28/2019 [...] Status:Closed by CLEMENCIA CHAPMAN on 03/23/25 Normal [facility] deOrdered By: Phong Solomon on 03-20-2025 Glucose [Mass/Vol] 155 mg/dL High 74-106 [facility] Comment on above: MANAGEMENT OF PATIEN T CARE PER NURSING PROTOCOL Absolute lymphocyte countOrd ered By: Phong Solomon on 03-19-2025 Lymphocytes Auto (Unsp spec) [#/Vol] 1.25 10*3/uL 0.83-4.51 [facility] Absolute neutrophil countOrd ered By: Phong Solomon on 03-19-2025 Neutrophils (Bld) [#/Vol] 3.5 10*3/uL 2.0-7.7 [facility] Anion gap in Serum or Plasma Ordered By: Phong Solomon on 03-19-2025 Anion gap [Moles/Vol] 8 mmol/L 5-15 [facility] Automated lymphocyte count a s percentage of total leukocytesOrdered By: Phong Solomon on 03-19-2025 Lymphocytes/100 WBC Auto (Unsp spec) 22.0 % - [facility] BRCon 03-19-2025 RC Normal [facility] Comment on above: Result Comment: [id number] AP RC TRANSFUSED 03/19/25 [id number] AP RC TRANSFUSED 03/19/25 1004 Performed By: #### B MILI, BTS ####[facility] [address] [place], [address] BUN/creatinine ratioOrdered By: Phnog Solomon on 03-19-2025 Urea nitrogen/Creatinine [Mass ratio] 22.6 mg/mg High 10-20 [facility] Basic Metabolic Profile (BMP )on 03-19-2025 BUN/CRE 22.6 RATIO High 10-20 [facility] Comment on above: Performed By: #### L 100.0100, L500.2500 ####[facility] [address] [place], [address] Calcium [Mass/Vol] 8.6 mg/dL Normal 7.6-11.0 [facility] Comment on above: Performed By: #### L 100.0100, L500.2500 ####[facility] [address] [place], [address] Chloride [Moles/Vol] 112 mmol/L High 98-108 [facility] Comment on above: Performed By: #### L 100.0100, L500.2500 ####[facility] [address] [place], [address] CO2 [Moles/Vol] 22.1 mmol/L Normal 21.0-32.0 [facility] Comment on above: Performed By: #### L 100.0100, L500.2500 ####[facility] [address] [place], [address] Creatinine [Mass/Vol] 1.47 mg/dL High 0.70-1.20 [facility] Comment on above: Performed By: #### L 100.0100, L500.2500 ####[facility] [address] [place], [address] ECRCL 35.30 ml/min Low 50-250 [facility] Comment on above: Performed By: #### L 100.0100, L500.2500 ####[facility] [address] [place], [address] GAP 8 Normal 5-15 [facility] Comment on above: Performed By: #### L 100.0100, L500.2500 ####[facility] [address] [place], [address] GFR/1.73 sq M.predicted among non-blacks MDRD (S/P/Bld) [Vol rate/Area] 37 mL/min/{1.73_m2} Low >60 [facility] Comment on above: Result Comment: mL/m in/1.73m2 CKD-EPI Creatinine Equation (2020) Performed By: #### L 100.0100, L500.2500 ####[facility] [address] [place], [address] Glucose [Mass/Vol] 111 mg/dL High 70-99 [facility] Comment on above: Performed By: #### L 100.0100, L500.2500 ####[facility] [address] [place], [address] Potassium [Moles/Vol] 4.2 mmol/L Normal 3.3-5.1 [facility] Comment on above: Performed By: #### L 100.0100, L500.2500 ####[facility] [address] [place], [address] Sodium [Moles/Vol] 142 mmol/L Normal 133-145 [facility] Comment on above: Performed By: #### L 100.0100, L500.2500 ####[facility] [address] [place], [address] Urea nitrogen [Mass/Vol] 33 mg/dL High 4-19 [facility] Comment on above: Performed By: #### L 100.0100, L500.2500 ####[facility] [address] [place], [address] Basophil percentageOrdered B y: Phong Solomon on 03-19-2025 Basophils/100 WBC (Bld) 1.4 % High 0-1 [facility] Bedside Glucoseon 03-19-2025 FINGERSTICK GLU 230 mg/dL High 74-106 [facility] Comment on above: Result Comment: JEREMIAS GEMENT OF PATIENT CARE PER NURSING PROTOCOL Performed By: #### L 501.080 ####[facility] [address] [place], [address] FINGERSTICK GLU 330 mg/dL High 74-106 [facility] Comment on above: Result Comment: JEREMIAS GEMENT OF PATIENT CARE PER NURSING PROTOCOL Performed By: #### L 501.080 ####[facility] [address] [place], [address] FINGERSTICK GLU 238 mg/dL High 74-106 [facility] Comment on above: Result Comment: JEREMIAS GEMENT OF PATIENT CARE PER NURSING PROTOCOL Performed By: #### L 501.080 ####[facility] [address] [place], [address] FINGERSTICK GLU 103 mg/dL Normal 74-106 [facility] Comment on above: Result Comment: JEREMIAS GEMENT OF PATIENT CARE PER NURSING PROTOCOL Performed By: #### L 501.080 ####[facility] [address] [place], [address] FINGERSTICK GLU 64 mg/dL Low 74-106 [facility] Comment on above: Result Comment: JEREMIAS GEMENT OF PATIENT CARE PER NURSING PROTOCOL Performed By: #### L 501.080 ####[facility] [address] [place], [address] FINGERSTICK GLU 177 mg/dL High 74-106 [facility] Comment on above: Result Comment: JEREMIAS GEMENT OF PATIENT CARE PER NURSING PROTOCOL Performed By: #### L 501.080 ####[facility] [address] [place], [address] FINGERSTICK GLU 106 mg/dL Normal 74-106 [facility] Comment on above: Result Comment: JEREMIAS PADILLA OF PATIENT CARE PER NURSING PROTOCOL Performed By: #### L 501.080 ####[facility] [address] [place], [address] CBC W/Diff, Automatedon 05-0 1-2024 Absolute Lymph 1.25 X10 3/uL Normal 0.83-4.51 [facility] Comment on above: Performed By: #### L 100.0100, L500.2500 ####[facility] [address] [place], [address] Absolute Neut 3.5 X10 3/uL Normal 2.0-7.7 [facility] Comment on above: Performed By: #### L 100.0100, L500.2500 ####[facility] [address] [place], [address] Basophils/100 WBC (Bld) 1.4 % High 0-1 [facility] Comment on above: Performed By: #### L 100.0100, L500.2500 ####[facility] [address] [place], [address] Eosinophils/100 WBC (Bld) 3.5 % Normal 0-5 [facility] Comment on above: Performed By: #### L 100.0100, L500.2500 ####[facility] [address] [place], [address] Erythrocyte distribution width (RBC) [Ratio] 16.2 % High 11.6-14.6 [facility] Comment on above: Performed By: #### L 100.0100, L500.2500 ####[facility] [address] [place], [address] Hematocrit (Bld) [Volume fraction] 24.1 % Low 37-47 [facility] Comment on above: Performed By: #### L 100.0100, L500.2500 ####[facility] [address] [place], [address] Hemoglobin (Bld) [Mass/Vol] 7.6 g/dL Low 12.0-15.0 [facility] Comment on above: Performed By: #### L 100.0100, L500.2500 ####[facility] [address] [place], [address] IG% 0.400 Normal 0.0-0.9 [facility] Comment on above: Result Comment: IG% - Immature Granulocytes (promyelocytes, myelocytes andmetamyelocytes) > 1% indicates that a LEFT SHIFT is Present. Performed By: #### L 100.0100, L500.2500 ####[facility] [address] [place], [address] Lymphocytes/100 WBC (Bld) 22.0 % Normal 19-41 [facility] Comment on above: Performed By: #### L 100.0100, L500.2500 ####[facility] [address] [place], [address] MCH (RBC) [Entitic mass] 29.1 pg Normal 27.0-32.0 [facility] Comment on above: Performed By: #### L 100.0100, L500.2500 ####[facility] [address] [place], [address] MCHC (RBC) [Mass/Vol] 31.5 g/dL Low 32-36 [facility] Comment on above: Performed By: #### L 100.0100, L500.2500 ####[facility] [address] [place], [address] MCV (RBC) [Entitic vol] 92.3 fL Normal 81-99 [facility] Comment on above: Performed By: #### L 100.0100, L500.2500 ####[facility] [address] [place], [address] Monocytes/100 WBC (Bld) 11.1 % High 0-10 [facility] Comment on above: Performed By: #### L 100.0100, L500.2500 ####[facility] [address] [place], [address] Neutrophils/100 WBC (Bld) 61.6 % Normal 47-70 [facility] Comment on above: Performed By: #### L 100.0100, L500.2500 ####[facility] [address] [place], [address] Nucleated RBC (Bld) [#/Vol] 0 10*3/uL Normal 0-5 [facility] Comment on above: Performed By: #### L 100.0100, L500.2500 ####[facility] [address] [place], [address] Platelet mean volume (Bld) [Entitic vol] 11.7 fL Normal 6.2-12.0 [facility] Comment on above: Performed By: #### L 100.0100, L500.2500 ####[facility] [address] [place], [address] Platelets (Bld) [#/Vol] 159 10*3/uL Normal 150-450 [facility] Comment on above: Performed By: #### L 100.0100, L500.2500 ####[facility] [address] [place], [address] RBC (Bld) [#/Vol] 2.61 10*6/uL Low 4.2-5.4 [facility] Comment on above: Performed By: #### L 100.0100, L500.2500 ####[facility] [address] [place], [address] RDW SD 52.6 fl High 35.1-43.9 [facility] Comment on above: Performed By: #### L 100.0100, L500.2500 ####[facility] [address] [place], [address] WBC (Bld) [#/Vol] 5.7 10*3/uL Normal 4.4-11.0 [facility] Comment on above: Performed By: #### L 100.0100, L500.2500 ####[facility] [address] [place], [address] CTA Abd w/Runoff W/WO Contra ston 03-19-2025 CTA Abd w/Runoff W/WO Contrast Normal [facility] Carbon dioxide, total [Moles /volume] in Central venous bloodOrdered By: Phong Solomon on 03-19-2025 CO2 [Moles/Vol] 22.1 mmol/L 21.0-32.0 [facility] Chloride assayOrdered By: Addy Solomon on 03-19-2025 Chloride [Moles/Vol] 112 mmol/L High 98-108 [facility] Eosinophil percentageOrdered By: Phong Solomon on 03-19-2025 Eosinophils/100 WBC (Bld) 3.5 % 0-5 [facility] Erythrocyte distribution wid th ratioOrdered By: Phong Solomon on 03-19-2025 Erythrocyte distribution width (RBC) [Ratio] 16.2 % High 11.6-14.6 [facility] Erythrocyte distribution wid th standard deviationOrdered By: Phong Solomon on 03-19-2025 Erythrocyte distribution width (RBC) [Ratio] 52.6 fl High 35.1-43.9 [facility] Glomerular filtration rate ( GFR) estimation/1.73 sq m using serum, plasma, or whole bOrdered By: Phong Solomon on 03-19-2025 GFR/1.73 sq M.predicted among non-blacks MDRD (S/P/Bld) [Vol rate/Area] 37 mL/min/{1.73_m2} Low >60 [facility] Comment on above: mL/min/1.73m2 CKD-EP I Creatinine Equation (2020) Hematocrit Auto (Bld) [Volum e fraction]Ordered By: Phong Solomon on 03-19-2025 Hematocrit (Bld) [Volume fraction] 24.1 % Low 37-47 [facility] Hemoglobin measurementOrdere d By: Phong Solomon on 03-19-2025 Hemoglobin (Bld) [Mass/Vol] 7.6 g/dL Low 12.0-15.0 [facility] Immature granulocytes/100 WB C Auto (Bld)Ordered By: Phong Solomon on 03-19-2025 Immature granulocytes/100 WBC (Bld) 0.400 % 0.0-0.9 [facility] Comment on above: IG% - Immature Granu locytes (promyelocytes, myelocytes and metamyelocytes) > 1% indicates that a LEFT SHIFT is Present. MCV (mean corpuscular volume ) determinationOrdered By: Phong Solomon on 03-19-2025 MCV (RBC) [Entitic vol] 92.3 fL 81-99 [facility] Mean corpuscular hemoglobin (MCH) determinationOrdered By: Phong Solomon on 03-19-2025 MCH (RBC) [Entitic mass] 29.1 pg 27.0-32.0 [facility] Mean corpuscular hemoglobin concentration (MCHC) determinationOrdered By: Phong Solomon on 03-19-2025 MCHC (RBC) [Mass/Vol] 31.5 g/dL Low 32-36 [facility] Mean platelet volume determi nationOrdered By: Phong Solomon on 03-19-2025 Platelet mean volume (Bld) [Entitic vol] 11.7 fL 6.2-12.0 [facility] Monocyte percentageOrdered B y: Phong Solomon on 03-19-2025 Monocytes/100 WBC (Bld) 11.1 % High 0-10 [facility] Neutrophil percentageOrdered By: Phong Solomon on 03-19-2025 Neutrophils/100 WBC (Bld) 61.6 % 47-70 [facility] Nucleated red blood cell per centageOrdered By: Phong Solomon on 03-19-2025 Nucleated RBC/100 WBC (Bld) [Ratio] 0 % 0-5 [facility] Platelet countOrdered By: Addy Solomon on 03-19-2025 Platelets (Bld) [#/Vol] 159 10*3/uL 150-450 [facility] Potassium measurement (mass/ volume)Ordered By: Phong Solomon on 03-19-2025 Potassium (Unsp spec) [Mass/Vol] 4.2 mmol/L 3.3-5.1 [facility] RBC Auto (Bld) [#/Vol]Ordere d By: Phong Solomon on 03-19-2025 RBC (Bld) [#/Vol] 2.61 10*6/uL Low 4.2-5.4 [facility] Serum creatinine measurement (mass/volume)Ordered By: Phong Solomon on 03-19-2025 Creatinine [Mass/Vol] 1.47 mg/dL High 0.70-1.20 [facility] Serum glucose measurement (m ass/volume)Ordered By: Phong Solomon on 03-19-2025 Glucose [Mass/Vol] 111 mg/dL High 70-99 [facility] Serum or plasma calcium natalia urement (mass/volume)Ordered By: Phong Solomon on 03-19-2025 Calcium [Mass/Vol] 8.6 mg/dL 7.6-11.0 [facility] Serum or plasma urea nitroge n measurement (mass/volume)Ordered By: Phong Solomon on 03-19-2025 Urea nitrogen [Mass/Vol] 33 mg/dL High 4-19 [facility] Sodium levelOrdered By: Phong Luongok on 03-19-2025 Sodium [Moles/Vol] 142 mmol/L 133-145 [facility] Stool Occult Blood iFOBon STOB Negative Normal [facility] Comment on above: Performed By: #### M 100.7900 ####[facility] [address] [facility] [address] [place], [place], [address] Stool gastrointestinal hemog lobin detection by immunologic methodOrdered By: Phong Servando on 03-19-2025 Lower GI hemoglobin IA Ql (Stl) [facility] Type AND Screenon 03-19-2025 Ab SCREEN GEL Negative Normal [facility] Comment on above: Order Comment: CMV N EG? NNumber of units to transfuse: 2Reason for Ordering Blood: AcuteAre the blood/blood products to be transfused? YIs the patient having/had surgery? NWglenn Fitzgerald Performed By: #### B RC, BTS ####[facility] [address] [place], [address] ABO and Rh group Nom (Bld) Blood group A Rh(D) positive Normal [facility] Comment on above: Order Comment: CMV N EG? NNumber of units to transfuse: 2Reason for Ordering Blood: AcuteAre the blood/blood products to be transfused? YIs the patient having/had surgery? NWglenn Fitzgerald Performed By: #### B RC, BTS ####[facility] [address] [place], [address] White blood cell (WBC) count Ordered By: Phong Solomon on 03-19-2025 WBC (Bld) [#/Vol] 5.7 10*3/uL 4.4-11.0 [facility] Bedside Glucoseon 03-18-2025 FINGERSTICK GLU 158 mg/dL High 74-106 [facility] Comment on above: Result Comment: JEREMIAS GEMENT OF PATIENT CARE PER NURSING PROTOCOL Performed By: #### L 501.080 ####[facility] [address] [place], [address] FINGERSTICK GLU 205 mg/dL High 74-106 [facility] Comment on above: Result Comment: JEREMIAS GEMENT OF PATIENT CARE PER NURSING PROTOCOL Performed By: #### L 501.080 ####[facility] [address] [place], [address] FINGERSTICK GLU 235 mg/dL High 74-106 [facility] Comment on above: Result Comment: JEREMIAS GEMENT OF PATIENT CARE PER NURSING PROTOCOL Performed By: #### L 501.080 ####[facility] [address] [place], [address] FINGERSTICK GLU 89 mg/dL Normal 74-106 [facility] Comment on above: Result Comment: JEREMIAS GEMENT OF PATIENT CARE PER NURSING PROTOCOL Performed By: #### L 501.080 ####[facility] [address] [place], [address] Bedside Glucoseon 03-17-2025 FINGERSTICK GLU 129 mg/dL High 74-106 [facility] Comment on above: Result Comment: JEREMIAS GEMENT OF PATIENT CARE PER NURSING PROTOCOL Performed By: #### L 501.080 ####[facility] [address] [place], [address] FINGERSTICK GLU 101 mg/dL Normal 74-106 [facility] Comment on above: Result Comment: JEREMIAS GEMENT OF PATIENT CARE PER NURSING PROTOCOL Performed By: #### L 501.080 ####[facility] [address] [facility] [address] FINGERSTICK GLU 120 mg/dL High -106 [facility] Comment on above: Result Comment: JEREMIAS GEMENT OF PATIENT CARE PER NURSING PROTOCOL Performed By: #### L 501.080 ####[facility] [address] [facility] [address] Bedside Glucoseon 03-16-2025 FINGERSTICK GLU 154 mg/dL High 74-106 [facility] Comment on above: Result Comment: JEREMIAS GEMENT OF PATIENT CARE PER NURSING PROTOCOL Performed By: #### L 501.080 ####[facility] [address] [place], [address] FINGERSTICK GLU 127 mg/dL High -106 [facility] Comment on above: Result Comment: JEREMIAS GEMENT OF PATIENT CARE PER NURSING PROTOCOL Performed By: #### L 501.080 ####[facility] [address] [place], [address] FINGERSTICK GLU 162 mg/dL High 74-106 [facility] Comment on above: Result Comment: JEREMIAS GEMENT OF PATIENT CARE PER NURSING PROTOCOL Performed By: #### L 501.080 ####[facility] [address] [place], [address] FINGERSTICK GLU 120 mg/dL High -106 [facility] Comment on above: Result Comment: JEREMIAS GEMENT OF PATIENT CARE PER NURSING PROTOCOL Performed By: #### L 501.080 ####[facility] [address] [place], [address] Bedside Glucoseon 03-15-2025 FINGERSTICK GLU 247 mg/dL High [address] [place] [address] Comment on above: Result Comment: JEREMIAS GEMENT OF PATIENT CARE PER NURSING PROTOCOL Performed By: #### L 501.080 ####[facility] [address] [place], [address] FINGERSTICK GLU 256 mg/dL High -106 [facility] Comment on above: Result Comment: JEREMIAS GEMENT OF PATIENT CARE PER NURSING PROTOCOL Performed By: #### L 501.080 ####[facility] [address] [place], [address] FINGERSTICK GLU 286 mg/dL High -106 [facility] Comment on above: Result Comment: JEREMIAS GEMENT OF PATIENT CARE PER NURSING PROTOCOL Performed By: #### L 501.080 ####[facility] [address] [place], [address] FINGERSTICK GLU 161 mg/dL High [address] [place] [address] Comment on above: Result Comment: JEREMIAS GEMENT OF PATIENT CARE PER NURSING PROTOCOL Performed By: #### L 501.080 ####[facility] [address] [place], [address] Bedside Glucoseon 03-14-2025 FINGERSTICK GLU 228 mg/dL High -[address] [place] [address] Comment on above: Result Comment: JEREMIAS GEMENT OF PATIENT CARE PER NURSING PROTOCOL Performed By: #### L 501.080 ####[facility] [address] [place], [address] FINGERSTICK GLU 201 mg/dL High -106 [facility] Comment on above: Result Comment: JEREMIAS GEMENT OF PATIENT CARE PER NURSING PROTOCOL Performed By: #### L 501.080 ####[facility] [address] [place], [address] FINGERSTICK GLU 204 mg/dL High 74-106 [facility] Comment on above: Result Comment: JEREMIAS GEMENT OF PATIENT CARE PER NURSING PROTOCOL Performed By: #### L 501.080 ####[facility] [address] [place], [address] FINGERSTICK GLU 163 mg/dL High 74-106 [facility] Comment on above: Result Comment: JEREMIAS GEMENT OF PATIENT CARE PER NURSING PROTOCOL Performed By: #### L 501.080 ####[facility] [address] [place], [address] Bedside Glucoseon 03-13-2025 FINGERSTICK GLU 258 mg/dL High -[address] [place] [address] Comment on above: Result Comment: JEREMIAS GEMENT OF PATIENT CARE PER NURSING PROTOCOL Performed By: #### L 501.080 ####[facility] [address] [place], [address] FINGERSTICK GLU 286 mg/dL High -106 [facility] Comment on above: Result Comment: JEREMIAS GEMENT OF PATIENT CARE PER NURSING PROTOCOL Performed By: #### L 501.080 ####[facility] [address] [place], [address] FINGERSTICK GLU 217 mg/dL High 74-106 [facility] Comment on above: Result Comment: JEREMIAS GEMENT OF PATIENT CARE PER NURSING PROTOCOL Performed By: #### L 501.080 ####[facility] [address] [place], [address] FINGERSTICK GLU 132 mg/dL High -106 [facility] Comment on above: Result Comment: JEREMIAS GEMENT OF PATIENT CARE PER NURSING PROTOCOL Performed By: #### L 501.080 ####[facility] [address] [place], [address] Calculated very low density lipoprotein (VLDL) cholesterol measurementOrdered By: Phong Solomon on 03-13-2025 Calculated very low density lipoprotein (VLDL) cholesterol measurement 25 mg/dL 5-40 [facility] Consultation - Surgicalon Consultation - Surgical Normal [facility] LDL calc ser/plasOrdered By: Phong Solomon on 03-13-2025 Cholesterol in LDL [Mass/Vol] 39 mg/dL [facility] Comment on above: Gefzzslkbg=289-736 m g/dL & Higher Rojc=870 mg/dL or greater Lipid Profileon 03-13-2025 CHOL:HDL 2.85 Normal [facility] Comment on above: Performed By: #### L 500.4100 ####[facility] [address] [place], [address](499) Cholesterol [Mass/Vol] 99 mg/dL Normal <=200 [facility] Comment on above: Result Comment: Chol esterol level, Desirable <200 mg/dLBorderline high cholesterol 200-239 mg/dLHigh cholesterol >=240 mg/dLRecommendations of the NCEP Adult Treatment Panel for thefollowing risk-cutoff thresholds for the [place] Americanpulation. Performed By: #### L 500.4100 ####[facility] [address] [place], [address](515) Cholesterol in HDL [Mass/Vol] 35 mg/dL Low [facility] Comment on above: Result Comment: Ligia onal Cholesterol Education Program (NCEP) guidelines:<40 mg/dL: Low HDL-cholesterol (major risk factor for CHD)>= 60 mg/dL: High HDL-cholesterol (negative risk factor forCHD)HDL-cholesterol is affected by a number of factors, e.g.smoking, exercise, hormones, sex and age. Performed By: #### L 500.4100 ####[facility] [address] [place], [address](887) Cholesterol in LDL [Mass/Vol] 39 mg/dL Normal [facility] Comment on above: Result Comment: Bord apowrn=099-732 mg/dL Higher Hihs=036 mg/dL or greater Performed By: #### L 500.4100 ####[facility] [address] [place], [address] Cholesterol in VLDL [Mass/Vol] 25 mg/dL Normal 5-40 [facility] Comment on above: Performed By: #### L 500.4100 ####[facility] [address] [place], [address] Triglyceride [Mass/Vol] 126 mg/dL Normal [facility] Comment on above: Result Comment: The drugs N-Acetylcysteine and Metamizole may falselydepress this assay.Normal range: <150 mg/dLBorderline High: 150-199 mg/dLHigh: 200-499 mg/dLVery High: >500 mg/dL Performed By: #### L 500.4100 ####[facility] [address] [place], [place], [address] Screening total cholesterol/ high density lipoprotein (HDL) cholesterol ratioOrdered By: Phong Solomon on 03-13-2025 Cholesterol.total/Chol esterol in HDL [Mass ratio] 2.85 {ratio} [facility] Serum or plasma cholesterol in HDL measurement (mass/volume)Ordered By: Phong Solomon on 03-13-2025 Cholesterol in HDL [Mass/Vol] 35 mg/dL Low >40 [facility] Comment on above: National Cholesterol Education Program (NCEP) guidelines:<40 mg/dL: Low HDL-cholesterol (major risk factor for CHD)>= 60 mg/dL: High HDL-cholesterol (negative risk factor for CHD)HDL-cholesterol is affected by a number of factors, e.g. smoking, exercise, hormones, sex and age. Serum or plasma cholesterol measurement (mass/volume)Ordered By: Phong Solomon on 03-13-2025 Cholesterol [Mass/Vol] 99 mg/dL <201 [facility] Comment on above: Cholesterol level, D esirable <200 mg/dLBorderline high cholesterol 200-239 mg/dLHigh cholesterol >=240 mg/dLRecommendations of the NCEP Adult Treatment Panel for the following risk-cutoff thresholds for the [place] population. Triglycerides measurementOrd ered By: Phong Solomon on 03-13-2025 Triglyceride [Mass/Vol] 126 mg/dL <199 [facility] Comment on above: The drugs N-Acetylcy steine and Metamizole may falsely depress this assay. Normal range: <150 mg/dLBorderline High: 150-199 mg/dLHigh: 200-499 mg/dLVery High: >500 mg/dL Basic Metabolic Profile (BMP )on 03-12-2025 BUN/CRE 33.8 RATIO High 10-20 [facility] Comment on above: Performed By: #### L 100.0100, L500.2500 ####[facility] [address] [place], [address] Calcium [Mass/Vol] 8.9 mg/dL Normal 7.6-11.0 [facility] Comment on above: Performed By: #### L 100.0100, L500.2500 ####[facility] [address] [place], [address] Chloride [Moles/Vol] 110 mmol/L High 98-108 [facility] Comment on above: Performed By: #### L 100.0100, L500.2500 ####[facility] [address] [place], [address] CO2 [Moles/Vol] 19.8 mmol/L Low 21.0-32.0 [facility] Comment on above: Performed By: #### L 100.0100, L500.2500 ####[facility] [address] [place], [address] Creatinine [Mass/Vol] 1.48 mg/dL High 0.70-1.20 [facility] Comment on above: Performed By: #### L 100.0100, L500.2500 ####[facility] [address] [place], [address] ECRCL 34.76 ml/min Low 50-250 [facility] Comment on above: Performed By: #### L 100.0100, L500.2500 ####[facility] [address] [place], [address] GAP 12 Normal 5-15 [facility] Comment on above: Performed By: #### L 100.0100, L500.2500 ####[facility] [address] [place], [address] GFR/1.73 sq M.predicted among non-blacks MDRD (S/P/Bld) [Vol rate/Area] 37 mL/min/{1.73_m2} Low >60 [facility] Comment on above: Result Comment: mL/m in/1.73m2 CKD-EPI Creatinine Equation (2020) Performed By: #### L 100.0100, L500.2500 ####[facility] [address] [place], [address] Glucose [Mass/Vol] 137 mg/dL High 70-99 [facility] Comment on above: Performed By: #### L 100.0100, L500.2500 ####[facility] [address] [place], [address] Potassium [Moles/Vol] 4.6 mmol/L Normal 3.3-5.1 [facility] Comment on above: Performed By: #### L 100.0100, L500.2500 ####[facility] [address] [place], [address] Sodium [Moles/Vol] 141 mmol/L Normal 133-145 [facility] Comment on above: Performed By: #### L 100.0100, L500.2500 ####[facility] [address] [place], [address] Urea nitrogen [Mass/Vol] 50 mg/dL High 4-19 [facility] Comment on above: Performed By: #### L 100.0100, L500.2500 ####[facility] [address] [place], [address] BUN Normal 4-19 [facility] Comment on above: Result Comment: Canc elled via OM: Order cancelled - Patient discharged Performed By: #### L 100.0100, L500.2500 ####[facility] [address] [place], [address] BUN/CRE Normal 10-20 [facility] Comment on above: Result Comment: Canc elled via OM: Order cancelled - Patient discharged Performed By: #### L 100.0100, L500.2500 ####[facility] [address] [place], [address] Calcium Normal 7.6-11.0 [facility] Comment on above: Result Comment: Canc elled via OM: Order cancelled - Patient discharged Performed By: #### L 100.0100, L500.2500 ####[facility] [address] [place], [address] CL Normal 98-108 [facility] Comment on above: Result Comment: Canc elled via OM: Order cancelled - Patient discharged Performed By: #### L 100.0100, L500.2500 ####[facility] [address] [place], [address] CO2 Normal 21.0-32.0 [facility] Comment on above: Result Comment: Canc elled via OM: Order cancelled - Patient discharged Performed By: #### L 100.0100, L500.2500 ####[facility] [address] [place], [address] CREAT,SERUM Normal 0.70-1.20 [facility] Comment on above: Result Comment: Canc elled via OM: Order cancelled - Patient discharged Performed By: #### L 100.0100, L500.2500 ####[facility] [address] [place], [address] eGFR Normal >60 [facility] Comment on above: Result Comment: Canc elled via OM: Order cancelled - Patient discharged Performed By: #### L 100.0100, L500.2500 ####[facility] [address] [place], [address] GAP Normal 5-15 [facility] Comment on above: Result Comment: Canc elled via OM: Order cancelled - Patient discharged Performed By: #### L 100.0100, L500.2500 ####[facility] [address] [place], [address] GLU Normal 70-99 [facility] Comment on above: Result Comment: Canc elled via OM: Order cancelled - Patient discharged Performed By: #### L 100.0100, L500.2500 ####[facility] [address] [place], [address] Potassium Normal 3.3-5.1 [facility] Comment on above: Result Comment: Canc elled via OM: Order cancelled - Patient discharged Performed By: #### L 100.0100, L500.2500 ####[facility] [address] [place], [address] Basic Metabolic Profile (BMP) Normal 133-145 [facility] Comment on above: Result Comment: Canc elled via OM: Order cancelled - Patient discharged Performed By: #### L 100.0100, L500.2500 ####[facility] [address] [place], [address] Bedside Glucoseon 03-12-2025 FINGERSTICK GLU 220 mg/dL High 74-106 [facility] Comment on above: Result Comment: JEREMIAS GEMENT OF PATIENT CARE PER NURSING PROTOCOL Performed By: #### L 501.080 ####[facility] [address] [place], [address] FINGERSTICK GLU 276 mg/dL High 74-106 [facility] Comment on above: Result Comment: JEREMIAS GEMENT OF PATIENT CARE PER NURSING PROTOCOL Performed By: #### L 501.080 ####[facility] [address] [place], [address] FINGERSTICK GLU 315 mg/dL High 74-106 [facility] Comment on above: Result Comment: JEREMIAS GEMENT OF PATIENT CARE PER NURSING PROTOCOL Performed By: #### L 501.080 ####[facility] [address] [place], [address] FINGERSTICK GLU 129 mg/dL High 74-106 [facility] Comment on above: Result Comment: JEREMIAS GEMENT OF PATIENT CARE PER NURSING PROTOCOL Performed By: #### L 501.080 ####[facility] [address] [place], [address] CBC W/Diff, Automatedon 02-18 Absolute Lymph 1.65 X10 3/uL Normal 0.83-4.51 [facility] Comment on above: Performed By: #### L 100.0100, L500.2500 ####[facility] [address] [place], [address] Absolute Neut 6.7 X10 3/uL Normal 2.0-7.7 [facility] Comment on above: Performed By: #### L 100.0100, L500.2500 ####[facility] [address] [place], [address] Basophils/100 WBC (Bld) 0.7 % Normal 0-1 [facility] Comment on above: Performed By: #### L 100.0100, L500.2500 ####[facility] [address] [place], [address] Eosinophils/100 WBC (Bld) 2.9 % Normal 0-5 [facility] Comment on above: Performed By: #### L 100.0100, L500.2500 ####[facility] [address] [place], [address] Erythrocyte distribution width (RBC) [Ratio] 15.8 % High 11.6-14.6 [facility] Comment on above: Performed By: #### L 100.0100, L500.2500 ####[facility] [address] [place], [address] Hematocrit (Bld) [Volume fraction] 29.0 % Low 37-47 [facility] Comment on above: Performed By: #### L 100.0100, L500.2500 ####[facility] [address] [place], [address] Hemoglobin (Bld) [Mass/Vol] 9.0 g/dL Low 12.0-15.0 [facility] Comment on above: Performed By: #### L 100.0100, L500.2500 ####[facility] [address] [place], [address] IG% 1.000 High 0.0-0.9 [facility] Comment on above: Result Comment: IG% - Immature Granulocytes (promyelocytes, myelocytes andmetamyelocytes) > 1% indicates that a LEFT SHIFT is Present. Performed By: #### L 100.0100, L500.2500 ####[facility] [address] [place], [address] Lymphocytes/100 WBC (Bld) 16.9 % Low 19-41 [facility] Comment on above: Performed By: #### L 100.0100, L500.2500 ####[facility] [address] [place], [address] MCH (RBC) [Entitic mass] 28.7 pg Normal 27.0-32.0 [facility] Comment on above: Performed By: #### L 100.0100, L500.2500 ####[facility] [address] [place], [address] MCHC (RBC) [Mass/Vol] 31.0 g/dL Low 32-36 [facility] Comment on above: Performed By: #### L 100.0100, L500.2500 ####[facility] [address] [place], [address] MCV (RBC) [Entitic vol] 92.4 fL Normal 81-99 [facility] Comment on above: Performed By: #### L 100.0100, L500.2500 ####[facility] [address] [place], [address] Monocytes/100 WBC (Bld) 10.2 % High 0-10 [facility] Comment on above: Performed By: #### L 100.0100, L500.2500 ####[facility] [address] [place], [address] Neutrophils/100 WBC (Bld) 68.3 % Normal 47-70 [facility] Comment on above: Performed By: #### L 100.0100, L500.2500 ####[facility] [address] [place], [address] Nucleated RBC (Bld) [#/Vol] 0 10*3/uL Normal 0-5 [facility] Comment on above: Performed By: #### L 100.0100, L500.2500 ####[facility] [address] [place], [address] Platelet mean volume (Bld) [Entitic vol] 11.8 fL Normal 6.2-12.0 [facility] Comment on above: Performed By: #### L 100.0100, L500.2500 ####[facility] [address] [place], [address] Platelets (Bld) [#/Vol] 175 10*3/uL Normal 150-450 [facility] Comment on above: Performed By: #### L 100.0100, L500.2500 ####[facility] [address] [place], [address] RBC (Bld) [#/Vol] 3.14 10*6/uL Low 4.2-5.4 [facility] Comment on above: Performed By: #### L 100.0100, L500.2500 ####[facility] [address] [place], [address] RDW SD 51.3 fl High 35.1-43.9 [facility] Comment on above: Performed By: #### L 100.0100, L500.2500 ####[facility] [address] [place], [address] WBC (Bld) [#/Vol] 9.8 10*3/uL Normal 4.4-11.0 [facility] Comment on above: Performed By: #### L 100.0100, L500.2500 ####[facility] [address] [place], [address] Absolute Neut Normal 2.0-7.7 [facility] Comment on above: Result Comment: Canc elled via OM: Order cancelled - Patient discharged Performed By: #### L 100.0100, L500.2500 ####[facility] [address] [place], [address] HCT Normal 37-47 [facility] Comment on above: Result Comment: Canc elled via OM: Order cancelled - Patient discharged Performed By: #### L 100.0100, L500.2500 ####[facility] [address] [place], [address] HGB Normal 12.0-15.0 [facility] Comment on above: Result Comment: Canc elled via OM: Order cancelled - Patient discharged Performed By: #### L 100.0100, L500.2500 ####[facility] [address] [place], [address] MCH Normal 27.0-32.0 [facility] Comment on above: Result Comment: Canc elled via OM: Order cancelled - Patient discharged Performed By: #### L 100.0100, L500.2500 ####[facility] [address] [place], [address] MCHC Normal 32-36 [facility] Comment on above: Result Comment: Canc elled via OM: Order cancelled - Patient discharged Performed By: #### L 100.0100, L500.2500 ####[facility] [address] [place], [address] MCV Normal 81-99 [facility] Comment on above: Result Comment: Canc elled via OM: Order cancelled - Patient discharged Performed By: #### L 100.0100, L500.2500 ####[facility] [address] [place], [address] NEUT% Normal 47-70 [facility] Comment on above: Result Comment: Canc elled via OM: Order cancelled - Patient discharged Performed By: #### L 100.0100, L500.2500 ####[facility] [address] [place], [address] PLT Normal 150-450 [facility] Comment on above: Result Comment: Canc elled via OM: Order cancelled - Patient discharged Performed By: #### L 100.0100, L500.2500 ####[facility] [address] [place], [address] RBC Normal 4.2-5.4 [facility] Comment on above: Result Comment: Canc elled via OM: Order cancelled - Patient discharged Performed By: #### L 100.0100, L500.2500 ####[facility] [address] [place], [address] RDW CV Normal 11.6-14.6 [facility] Comment on above: Result Comment: Canc elled via OM: Order cancelled - Patient discharged Performed By: #### L 100.0100, L500.2500 ####[facility] [address] [place], [address] RDW SD Normal 35.1-43.9 [facility] Comment on above: Result Comment: Canc elled via OM: Order cancelled - Patient discharged Performed By: #### L 100.0100, L500.2500 ####[facility] [address] [place], [address] WBC Normal 4.4-11.0 [facility] Comment on above: Result Comment: Canc elled via OM: Order cancelled - Patient discharged Performed By: #### L 100.0100, L500.2500 ####[facility] [address] [place], [address] Absolute lymphocyte countOrd ered By: Broderick Dempsey on 03-11-2025 Lymphocytes Auto (Unsp spec) [#/Vol] 1.37 10*3/uL 0.83-4.51 [facility] Absolute neutrophil countOrd ered By: Broderick Dempsey on 03-11-2025 Neutrophils (Bld) [#/Vol] 5.4 10*3/uL 2.0-7.7 [facility] Anion gap in Serum or Plasma Ordered By: Broderick Dempsey on 03-11-2025 Anion gap [Moles/Vol] 10 mmol/L 5-15 [facility] Automated lymphocyte count a s percentage of total leukocytesOrdered By: Broderick Dempsey on 03-11-2025 Lymphocytes/100 WBC Auto (Unsp spec) 17.0 % Low 19-41 [facility] BUN/creatinine ratioOrdered By: Broderick Dempsey on 03-11-2025 Urea nitrogen/Creatinine [Mass ratio] 37.8 mg/mg High 10- [facility] Basic Metabolic Profile (BMP )on 03-11-2025 BUN/CRE 37.8 RATIO High 09-07 [facility] Comment on above: Performed By: #### L 500.2500, L100.0100 ####[facility] [address] [place], [address] Calcium [Mass/Vol] 8.4 mg/dL Normal 7.6-11.0 [facility] Comment on above: Performed By: #### L 500.2500, L100.0100 ####[facility] [address] [place], [address] Chloride [Moles/Vol] 111 mmol/L High 98-108 [facility] Comment on above: Performed By: #### L 500.2500, L100.0100 ####[facility] [address] [place], [address] CO2 [Moles/Vol] 19.8 mmol/L Low 21.0-32.0 [facility] Comment on above: Performed By: #### L 500.2500, L100.0100 ####[facility] [address] [place], [address] Creatinine [Mass/Vol] 1.41 mg/dL High 0.70-1.20 [facility] Comment on above: Performed By: #### L 500.2500, L100.0100 ####[facility] [address] [place], [address] ECRCL 36.83 ml/min Low 50-250 [facility] Comment on above: Performed By: #### L 500.2500, L100.0100 ####[facility] [address] [place], [address] GAP 10 Normal 5-15 [facility] Comment on above: Performed By: #### L 500.2500, L100.0100 ####[facility] [address] [place], [address] GFR/1.73 sq M.predicted among non-blacks MDRD (S/P/Bld) [Vol rate/Area] 39 mL/min/{1.73_m2} Low >60 [facility] Comment on above: Result Comment: mL/m in/1.73m2 CKD-EPI Creatinine Equation (2020) Performed By: #### L 500.2500, L100.0100 ####[facility] [address] [place], [address] Glucose [Mass/Vol] 91 mg/dL Normal 70-99 [facility] Comment on above: Performed By: #### L 500.2500, L100.0100 ####[facility] [address] [place], [address] Potassium [Moles/Vol] 4.2 mmol/L Normal 3.3-5.1 [facility] Comment on above: Performed By: #### L 500.2500, L100.0100 ####[facility] [address] [place], [address] Sodium [Moles/Vol] 141 mmol/L Normal 133-145 [facility] Comment on above: Performed By: #### L 500.2500, L100.0100 ####[facility] [address] [place], [address] Urea nitrogen [Mass/Vol] 53 mg/dL High 4-19 [facility] Comment on above: Performed By: #### L 500.2500, L100.0100 ####[facility] [address] [place], [address] Basophil percentageOrdered B y: Broderick Dempsey on 03-11-2025 Basophils/100 WBC (Bld) 0.7 % 0-1 [facility] Bedside Glucoseon 03-11-2025 FINGERSTICK GLU 204 mg/dL High 74-106 [facility] Comment on above: Result Comment: JEREMIAS GEMENT OF PATIENT CARE PER NURSING PROTOCOL Performed By: #### L 501.080 ####[facility] [address] [place], [address] FINGERSTICK GLU 164 mg/dL High 74-106 [facility] Comment on above: Result Comment: JEREMIAS GEMENT OF PATIENT CARE PER NURSING PROTOCOL Performed By: #### L 501.080 ####[facility] [address] [place], [address] FINGERSTICK GLU 282 mg/dL High 74-106 [facility] Comment on above: Result Comment: JEREMIAS GEMENT OF PATIENT CARE PER NURSING PROTOCOL Performed By: #### L 501.080 ####[facility] [address] [place], [address] FINGERSTICK GLU 82 mg/dL Normal 74-106 [facility] Comment on above: Result Comment: JEREMIAS GEMENT OF PATIENT CARE PER NURSING PROTOCOL Performed By: #### L 501.080 ####[facility] [address] [place], [address] FINGERSTICK GLU 142 mg/dL High 74-106 [facility] Comment on above: Result Comment: JEREMIAS GEMENT OF PATIENT CARE PER NURSING PROTOCOL Performed By: #### L 501.080 ####[facility] [address] [place], [address] CBC W/Diff, Automatedon 04-2 -2024 Absolute Lymph 1.37 X10 3/uL Normal 0.83-4.51 [facility] Comment on above: Performed By: #### L 500.2500, L100.0100 ####[facility] [address] [place], [address] Absolute Neut 5.4 X10 3/uL Normal 2.0-7.7 [facility] Comment on above: Performed By: #### L 500.2500, L100.0100 ####[facility] [address] [place], [address] Basophils/100 WBC (Bld) 0.7 % Normal 0-1 [facility] Comment on above: Performed By: #### L 500.2500, L100.0100 ####[facility] [address] [place], [address] Eosinophils/100 WBC (Bld) 3.6 % Normal 0-5 [facility] Comment on above: Performed By: #### L 500.2500, L100.0100 ####[facility] [address] [place], [address] Erythrocyte distribution width (RBC) [Ratio] 15.4 % High 11.6-14.6 [facility] Comment on above: Performed By: #### L 500.2500, L100.0100 ####[facility] [address] [place], [address] Hematocrit (Bld) [Volume fraction] 25.3 % Low 37-47 [facility] Comment on above: Performed By: #### L 500.2500, L100.0100 ####[facility] [address] [place], [address] Hemoglobin (Bld) [Mass/Vol] 8.0 g/dL Low 12.0-15.0 [facility] Comment on above: Performed By: #### L 500.2500, L100.0100 ####[facility] [address] [place], [address] IG% 0.900 Normal 0.0-0.9 [facility] Comment on above: Result Comment: IG% - Immature Granulocytes (promyelocytes, myelocytes andmetamyelocytes) > 1% indicates that a LEFT SHIFT is Present. Performed By: #### L 500.2500, L100.0100 ####[facility] [address] [place], [address] Lymphocytes/100 WBC (Bld) 17.0 % Low 19-41 [facility] Comment on above: Performed By: #### L 500.2500, L100.0100 ####[facility] [address] [place], [address] MCH (RBC) [Entitic mass] 28.8 pg Normal 27.0-32.0 [facility] Comment on above: Performed By: #### L 500.2500, L100.0100 ####[facility] [address] [place], [address] MCHC (RBC) [Mass/Vol] 31.6 g/dL Low 32-36 [facility] Comment on above: Performed By: #### L 500.2500, L100.0100 ####[facility] [address] [place], [address] MCV (RBC) [Entitic vol] 91.0 fL Normal 81-99 [facility] Comment on above: Performed By: #### L 500.2500, L100.0100 ####[facility] [address] [place], [address] Monocytes/100 WBC (Bld) 10.8 % High 0-10 [facility] Comment on above: Performed By: #### L 500.2500, L100.0100 ####[facility] [address] [place], [address] Neutrophils/100 WBC (Bld) 67.0 % Normal 47-70 [facility] Comment on above: Performed By: #### L 500.2500, L100.0100 ####[facility] [address] [place], [address] Nucleated RBC (Bld) [#/Vol] 0 10*3/uL Normal 0-5 [facility] Comment on above: Performed By: #### L 500.2500, L100.0100 ####[facility] [address] [place], [address] Platelet mean volume (Bld) [Entitic vol] 11.7 fL Normal 6.2-12.0 [facility] Comment on above: Performed By: #### L 500.2500, L100.0100 ####[facility] [address] [place], [address] Platelets (Bld) [#/Vol] 150 10*3/uL Normal 150-450 [facility] Comment on above: Performed By: #### L 500.2500, L100.0100 ####[facility] [address] [place], [address] RBC (Bld) [#/Vol] 2.78 10*6/uL Low 4.2-5.4 [facility] Comment on above: Performed By: #### L 500.2500, L100.0100 ####[facility] [address] [place], [address] RDW SD 49.5 fl High 35.1-43.9 [facility] Comment on above: Performed By: #### L 500.2500, L100.0100 ####[facility] [address] [place], [address] WBC (Bld) [#/Vol] 8.1 10*3/uL Normal 4.4-11.0 [facility] Comment on above: Performed By: #### L 500.2500, L100.0100 ####[facility] [address] [place], [address] Carbon dioxide, total [Moles /volume] in Central venous bloodOrdered By: Broderick Dempsey on 03-11-2025 CO2 [Moles/Vol] 19.8 mmol/L Low 21.0-32.0 [facility] Chloride assayOrdered By: Solange Dempsey on 03-11-2025 Chloride [Moles/Vol] 111 mmol/L High 98-108 [facility] Consultation - Infectious Dx on 03-11-2025 Consultation - Infectious Dx Normal [facility] Eosinophil percentageOrdered By: Broderick Dempsey on 03-11-2025 Eosinophils/100 WBC (Bld) 3.6 % 0-5 [facility] Erythrocyte distribution wid th ratioOrdered By: Broderick Dempsey on 03-11-2025 Erythrocyte distribution width (RBC) [Ratio] 15.4 % High 11.6-14.6 [facility] Erythrocyte distribution wid th standard deviationOrdered By: Broderick Dempsey on 03-11-2025 Erythrocyte distribution width (RBC) [Ratio] 49.5 fl High 35.1-43.9 [facility] Glomerular filtration rate ( GFR) estimation/1.73 sq m using serum, plasma, or whole bOrdered By: Broderick Dempsey on 03-11-2025 GFR/1.73 sq M.predicted among non-blacks MDRD (S/P/Bld) [Vol rate/Area] 39 mL/min/{1.73_m2} Low >60 [facility] Comment on above: mL/min/1.73m2 CKD-EP I Creatinine Equation (2020) [facility] deOrdered By: Broderick Dempsey on 03-11-2025 Glucose [Mass/Vol] 164 mg/dL High 74-106 [facility] Comment on above: MANAGEMENT OF PATIEN T CARE PER NURSING PROTOCOL Hematocrit Auto (Bld) [Volum e fraction]Ordered By: Broderick Dempsey on 03-11-2025 Hematocrit (Bld) [Volume fraction] 25.3 % Low 37-47 [facility] Hemoglobin measurementOrdere d By: Broderick Dempsey on 03-11-2025 Hemoglobin (Bld) [Mass/Vol] 8.0 g/dL Low 12.0-15.0 [facility] Immature granulocytes/100 WB C Auto (Bld)Ordered By: Broderick Dempsey on 03-11-2025 Immature granulocytes/100 WBC (Bld) 0.900 % 0.0-0.9 [facility] Comment on above: IG% - Immature Granu locytes (promyelocytes, myelocytes and metamyelocytes) > 1% indicates that a LEFT SHIFT is Present. MCV (mean corpuscular volume ) determinationOrdered By: Broderick Dempsey on 03-11-2025 MCV (RBC) [Entitic vol] 91.0 fL 81-99 [facility] Mean corpuscular hemoglobin (MCH) determinationOrdered By: Broderick Dempsey on 03-11-2025 MCH (RBC) [Entitic mass] 28.8 pg 27.0-32.0 [facility] Mean corpuscular hemoglobin concentration (MCHC) determinationOrdered By: Broderick Dempsey on 03-11-2025 MCHC (RBC) [Mass/Vol] 31.6 g/dL Low 32-36 [facility] Mean platelet volume determi nationOrdered By: Broderick Dempsey on 03-11-2025 Platelet mean volume (Bld) [Entitic vol] 11.7 fL 6.2-12.0 [facility] Monocyte percentageOrdered B y: Broderick Dempsey on 03-11-2025 Monocytes/100 WBC (Bld) 10.8 % High 0-10 [facility] Neutrophil percentageOrdered By: Broderick Dempsey on 03-11-2025 Neutrophils/100 WBC (Bld) 67.0 % 47-70 [facility] Nucleated red blood cell per centageOrdered By: Broderick Dempsey on 03-11-2025 Nucleated RBC/100 WBC (Bld) [Ratio] 0 % 0-5 [facility] Platelet countOrdered By: Solange Dempsey on 03-11-2025 Platelets (Bld) [#/Vol] 150 10*3/uL 150-450 [facility] Potassium measurement (mass/ volume)Ordered By: Broderick Dempsey on 03-11-2025 Potassium (Unsp spec) [Mass/Vol] 4.2 mmol/L 3.3-5.1 [facility] RBC Auto (Bld) [#/Vol]Ordere d By: Broderick Dempsey on 03-11-2025 RBC (Bld) [#/Vol] 2.78 10*6/uL Low 4.2-5.4 [facility] Serum creatinine measurement (mass/volume)Ordered By: Broderick Dempsey on 03-11-2025 Creatinine [Mass/Vol] 1.41 mg/dL High 0.70-1.20 [facility] Serum glucose measurement (m ass/volume)Ordered By: Broderick Dempsey on 03-11-2025 Glucose [Mass/Vol] 91 mg/dL 70-99 [facility] Serum or plasma calcium natalia urement (mass/volume)Ordered By: Broderick Dempsey on 03-11-2025 Calcium [Mass/Vol] 8.4 mg/dL 7.6-11.0 [facility] Serum or plasma urea nitroge n measurement (mass/volume)Ordered By: Broderick Dempsey on 03-11-2025 Urea nitrogen [Mass/Vol] 53 mg/dL High 4-19 [facility] Sodium levelOrdered By: Tevin Dempsey on 03-11-2025 Sodium [Moles/Vol] 141 mmol/L 133-145 [facility] White blood cell (WBC) count Ordered By: Broderick Dempsey on 03-11-2025 WBC (Bld) [#/Vol] 8.1 10*3/uL 4.4-11.0 [facility] Basic Metabolic Profile (BMP )on 03-10-2025 BUN/CRE 44.3 RATIO High 10-20 [facility] Comment on above: Performed By: #### L 100.0100, L500.2500 ####[facility] [address] [place], [address] Calcium [Mass/Vol] 8.4 mg/dL Normal 7.6-11.0 [facility] Comment on above: Performed By: #### L 100.0100, L500.2500 ####[facility] [address] [place], [address] Chloride [Moles/Vol] 113 mmol/L High 98-108 [facility] Comment on above: Performed By: #### L 100.0100, L500.2500 ####[facility] [address] [place], [address] CO2 [Moles/Vol] 19.1 mmol/L Low 21.0-32.0 [facility] Comment on above: Performed By: #### L 100.0100, L500.2500 ####[facility] [address] [place], [address] Creatinine [Mass/Vol] 1.47 mg/dL High 0.70-1.20 [facility] Comment on above: Performed By: #### L 100.0100, L500.2500 ####[facility] [address] [place], [address] ECRCL 35.18 ml/min Low 50-250 [facility] Comment on above: Performed By: #### L 100.0100, L500.2500 ####[facility] [address] [place], [address] GAP 10 Normal 5-15 [facility] Comment on above: Performed By: #### L 100.0100, L500.2500 ####[facility] [address] [place], [address] GFR/1.73 sq M.predicted among non-blacks MDRD (S/P/Bld) [Vol rate/Area] 37 mL/min/{1.73_m2} Low >60 [facility] Comment on above: Result Comment: mL/m in/1.73m2 CKD-EPI Creatinine Equation (2020) Performed By: #### L 100.0100, L500.2500 ####[facility] [address] [place], [address] Glucose [Mass/Vol] 81 mg/dL Normal 70-99 [facility] Comment on above: Performed By: #### L 100.0100, L500.2500 ####[facility] [address] [place], [address] Potassium [Moles/Vol] 4.2 mmol/L Normal 3.3-5.1 [facility] Comment on above: Performed By: #### L 100.0100, L500.2500 ####[facility] [address] [place], [address] Sodium [Moles/Vol] 143 mmol/L Normal 133-145 [facility] Comment on above: Performed By: #### L 100.0100, L500.2500 ####[facility] [address] [place], [address] Urea nitrogen [Mass/Vol] 65 mg/dL High 4-19 [facility] Comment on above: Performed By: #### L 100.0100, L500.2500 ####[facility] [address] [place], [address] Bedside Glucoseon 03-10-2025 FINGERSTICK GLU 186 mg/dL High 74-106 [facility] Comment on above: Result Comment: JEREMIAS GEMENT OF PATIENT CARE PER NURSING PROTOCOL Performed By: #### L 501.080 ####[facility] [address] [place], [address] FINGERSTICK GLU 308 mg/dL High 74-106 [facility] Comment on above: Result Comment: JEREMIAS GEMENT OF PATIENT CARE PER NURSING PROTOCOL Performed By: #### L 501.080 ####[facility] [address] [place], [address] FINGERSTICK GLU 84 mg/dL Normal 74-106 [facility] Comment on above: Result Comment: JEREMIAS GEMENT OF PATIENT CARE PER NURSING PROTOCOL Performed By: #### L 501.080 ####[facility] [address] [place], [address] CBC W/Diff, Automatedon 02-18 Absolute Lymph 1.76 X10 3/uL Normal 0.83-4.51 [facility] Comment on above: Performed By: #### L 100.0100, L500.2500 ####[facility] [address] [place], [address] Absolute Neut 4.7 X10 3/uL Normal 2.0-7.7 [facility] Comment on above: Performed By: #### L 100.0100, L500.2500 ####[facility] [address] [place], [address] Basophils/100 WBC (Bld) 0.6 % Normal 0-1 [facility] Comment on above: Performed By: #### L 100.0100, L500.2500 ####[facility] [address] [place], [address] Eosinophils/100 WBC (Bld) 3.0 % Normal 0-5 [facility] Comment on above: Performed By: #### L 100.0100, L500.2500 ####[facility] [address] [place], [address] Erythrocyte distribution width (RBC) [Ratio] 15.1 % High 11.6-14.6 [facility] Comment on above: Performed By: #### L 100.0100, L500.2500 ####[facility] [address] [place], [address] Hematocrit (Bld) [Volume fraction] 25.3 % Low 37-47 [facility] Comment on above: Performed By: #### L 100.0100, L500.2500 ####[facility] [address] [place], [address] Hemoglobin (Bld) [Mass/Vol] 8.1 g/dL Low 12.0-15.0 [facility] Comment on above: Performed By: #### L 100.0100, L500.2500 ####[facility] [address] [place], [address] IG% 1.300 High 0.0-0.9 [facility] Comment on above: Result Comment: IG% - Immature Granulocytes (promyelocytes, myelocytes andmetamyelocytes) > 1% indicates that a LEFT SHIFT is Present. Performed By: #### L 100.0100, L500.2500 ####[facility] [address] [place], [address] Lymphocytes/100 WBC (Bld) 22.3 % Normal 19-41 [facility] Comment on above: Performed By: #### L 100.0100, L500.2500 ####[facility] [address] [place], [address] MCH (RBC) [Entitic mass] 28.7 pg Normal 27.0-32.0 [facility] Comment on above: Performed By: #### L 100.0100, L500.2500 ####[facility] [address] [place], [address] MCHC (RBC) [Mass/Vol] 32.0 g/dL Normal 32-36 [facility] Comment on above: Performed By: #### L 100.0100, L500.2500 ####[facility] [address] [place], [address] MCV (RBC) [Entitic vol] 89.7 fL Normal 81-99 [facility] Comment on above: Performed By: #### L 100.0100, L500.2500 ####[facility] [address] [place], [address] Monocytes/100 WBC (Bld) 12.9 % High 0-10 [facility] Comment on above: Performed By: #### L 100.0100, L500.2500 ####[facility] [address] [place], [address] Neutrophils/100 WBC (Bld) 59.9 % Normal 47-70 [facility] Comment on above: Performed By: #### L 100.0100, L500.2500 ####[facility] [address] [place], [address] Nucleated RBC (Bld) [#/Vol] 0 10*3/uL Normal 0-5 [facility] Comment on above: Performed By: #### L 100.0100, L500.2500 ####[facility] [address] [place], [address] Platelet mean volume (Bld) [Entitic vol] 11.4 fL Normal 6.2-12.0 [facility] Comment on above: Performed By: #### L 100.0100, L500.2500 ####[facility] [address] [place], [address] Platelets (Bld) [#/Vol] 156 10*3/uL Normal 150-450 [facility] Comment on above: Performed By: #### L 100.0100, L500.2500 ####[facility] [address] [place], [address] RBC (Bld) [#/Vol] 2.82 10*6/uL Low 4.2-5.4 [facility] Comment on above: Performed By: #### L 100.0100, L500.2500 ####[facility] [address] [place], [address] RDW SD 46.9 fl High 35.1-43.9 [facility] Comment on above: Performed By: #### L 100.0100, L500.2500 ####[facility] [address] [place], [address] WBC (Bld) [#/Vol] 7.9 10*3/uL Normal 4.4-11.0 [facility] Comment on above: Performed By: #### L 100.0100, L500.2500 ####[facility] [address] [place], [address] Protein+Creatinine Ratio,Uri neon 03-10-2025 PROT:CRE RATIO 226 mg/g CRE High 0-200 [facility] Comment on above: Performed By: #### L 501.0900 ####[facility] [address] [place], [address] Protein (U) [Mass/Vol] 8.5 mg/dL Normal 0.0-12.0 [facility] Comment on above: Performed By: #### L 501.0900 ####[facility] [address] [place], [address] UR CREAT 37.70 mg/dL Normal 28.00-217.0 0 [facility] Comment on above: Performed By: #### L 501.0900 ####[facility] [address] [place], [address] Basic Metabolic Profile (BMP )on 03-09-2025 BUN/CRE 51.7 RATIO High 10-20 [facility] Comment on above: Performed By: #### L 500.2500, L501.3620, L100.0100 ####[facility] [address] [place], [address] Calcium [Mass/Vol] 8.1 mg/dL Normal 7.6-11.0 [facility] Comment on above: Performed By: #### L 500.2500, L501.3620, L100.0100 ####[facility] [address] [place], [address] Chloride [Moles/Vol] 112 mmol/L High 98-108 [facility] Comment on above: Performed By: #### L 500.2500, L501.3620, L100.0100 ####[facility] [address] [place], [address] CO2 [Moles/Vol] 19.1 mmol/L Low 21.0-32.0 [facility] Comment on above: Performed By: #### L 500.2500, L501.3620, L100.0100 ####[facility] [address] [place], [address] Creatinine [Mass/Vol] 1.63 mg/dL High 0.70-1.20 [facility] Comment on above: Performed By: #### L 500.2500, L501.3620, L100.0100 ####[facility] [address] [place], [address] ECRCL 31.75 ml/min Low 50-250 [facility] Comment on above: Performed By: #### L 500.2500, L501.3620, L100.0100 ####[facility] [address] [place], [address] GAP 10 Normal 5-15 [facility] Comment on above: Performed By: #### L 500.2500, L501.3620, L100.0100 ####[facility] [address] [place], [address] GFR/1.73 sq M.predicted among non-blacks MDRD (S/P/Bld) [Vol rate/Area] 33 mL/min/{1.73_m2} Low >60 [facility] Comment on above: Result Comment: mL/m in/1.73m2 CKD-EPI Creatinine Equation (2020) Performed By: #### L 500.2500, L501.3620, L100.0100 ####[facility] [address] [place], [address] Glucose [Mass/Vol] 120 mg/dL High 70-99 [facility] Comment on above: Performed By: #### L 500.2500, L501.3620, L100.0100 ####[facility] [address] [place], [address] Potassium [Moles/Vol] 3.8 mmol/L Normal 3.3-5.1 [facility] Comment on above: Performed By: #### L 500.2500, L501.3620, L100.0100 ####[facility] [address] [place], [address] Sodium [Moles/Vol] 141 mmol/L Normal 133-145 [facility] Comment on above: Performed By: #### L 500.2500, L501.3620, L100.0100 ####[facility] [address] [place], [address] Urea nitrogen [Mass/Vol] 84 mg/dL High 4-19 [facility] Comment on above: Performed By: #### L 500.2500, L501.3620, L100.0100 ####[facility] [address] [place], [address] Bedside Glucoseon 03-09-2025 FINGERSTICK GLU 220 mg/dL High 74-106 [facility] Comment on above: Result Comment: JEREMIAS GEMENT OF PATIENT CARE PER NURSING PROTOCOL Performed By: #### L 501.080 ####[facility] [address] [place], [address] FINGERSTICK GLU 193 mg/dL High 74-106 [facility] Comment on above: Result Comment: JEREMIAS GEMENT OF PATIENT CARE PER NURSING PROTOCOL Performed By: #### L 501.080 ####[facility] [address] [place], [address] FINGERSTICK GLU 164 mg/dL High 74-106 [facility] Comment on above: Result Comment: JEREMIAS GEMENT OF PATIENT CARE PER NURSING PROTOCOL Performed By: #### L 501.080 ####[facility] [address] [place], [address] CBC W/Diff, Automatedon 04- Absolute Lymph 1.38 X10 3/uL Normal 0.83-4.51 [facility] Comment on above: Performed By: #### L 500.2500, L501.3620, L100.0100 ####[facility] [address] [place], [address] Absolute Neut 6.3 X10 3/uL Normal 2.0-7.7 [facility] Comment on above: Performed By: #### L 500.2500, L501.3620, L100.0100 ####[facility] [address] [place], [address] Basophils/100 WBC (Bld) 0.3 % Normal 0-1 [facility] Comment on above: Performed By: #### L 500.2500, L501.3620, L100.0100 ####[facility] [address] [place], [address] Eosinophils/100 WBC (Bld) 2.3 % Normal 0-5 [facility] Comment on above: Performed By: #### L 500.2500, L501.3620, L100.0100 ####[facility] [address] [place], [address] Erythrocyte distribution width (RBC) [Ratio] 14.7 % High 11.6-14.6 [facility] Comment on above: Performed By: #### L 500.2500, L501.3620, L100.0100 ####[facility] [address] [place], [address] Hematocrit (Bld) [Volume fraction] 23.5 % Low 37-47 [facility] Comment on above: Performed By: #### L 500.2500, L501.3620, L100.0100 ####[facility] [address] [place], [address] Hemoglobin (Bld) [Mass/Vol] 7.6 g/dL Low 12.0-15.0 [facility] Comment on above: Performed By: #### L 500.2500, L501.3620, L100.0100 ####[facility] [address] [place], [address] IG% 1.000 High 0.0-0.9 [facility] Comment on above: Result Comment: IG% - Immature Granulocytes (promyelocytes, myelocytes andmetamyelocytes) > 1% indicates that a LEFT SHIFT is Present. Performed By: #### L 500.2500, L501.3620, L100.0100 ####[facility] [address] [place], [address] Lymphocytes/100 WBC (Bld) 15.8 % Low 19-41 [facility] Comment on above: Performed By: #### L 500.2500, L501.3620, L100.0100 ####[facility] [address] [place], [address] MCH (RBC) [Entitic mass] 29.0 pg Normal 27.0-32.0 [facility] Comment on above: Performed By: #### L 500.2500, L501.3620, L100.0100 ####[facility] [address] [place], [address] MCHC (RBC) [Mass/Vol] 32.3 g/dL Normal 32-36 [facility] Comment on above: Performed By: #### L 500.2500, L501.3620, L100.0100 ####[facility] [address] [place], [address] MCV (RBC) [Entitic vol] 89.7 fL Normal 81-99 [facility] Comment on above: Performed By: #### L 500.2500, L501.3620, L100.0100 ####[facility] [address] [place], [address] Monocytes/100 WBC (Bld) 9.0 % Normal 0-10 [facility] Comment on above: Performed By: #### L 500.2500, L501.3620, L100.0100 ####[facility] [address] [place], [address] Neutrophils/100 WBC (Bld) 71.6 % High 47-70 [facility] Comment on above: Performed By: #### L 500.2500, L501.3620, L100.0100 ####[facility] [address] [place], [address] Nucleated RBC (Bld) [#/Vol] 0 10*3/uL Normal 0-5 [facility] Comment on above: Performed By: #### L 500.2500, L501.3620, L100.0100 ####[facility] [address] [place], [address] Platelet mean volume (Bld) [Entitic vol] 11.7 fL Normal 6.2-12.0 [facility] Comment on above: Performed By: #### L 500.2500, L501.3620, L100.0100 ####[facility] [address] [place], [address] Platelets (Bld) [#/Vol] 164 10*3/uL Normal 150-450 [facility] Comment on above: Performed By: #### L 500.2500, L501.3620, L100.0100 ####[facility] [address] [place], [address] RBC (Bld) [#/Vol] 2.62 10*6/uL Low 4.2-5.4 [facility] Comment on above: Performed By: #### L 500.2500, L501.3620, L100.0100 ####[facility] [address] [place], [address] RDW SD 47.1 fl High 35.1-43.9 [facility] Comment on above: Performed By: #### L 500.2500, L501.3620, L100.0100 ####[facility] [address] [place], [address] WBC (Bld) [#/Vol] 8.8 10*3/uL Normal 4.4-11.0 [facility] Comment on above: Performed By: #### L 500.2500, L501.3620, L100.0100 ####[facility] [address] [place], [address] CPK Total, Creatine Kinaseon 03-09-2025 CPK TOTAL 308 U/L High 24-195 [facility] Comment on above: Performed By: #### L 500.2500, L501.3620, L100.0100 ####[facility] [address] [place], [address] Consultation - Nephrologyon 03-09-2025 Consultation - Nephrology Normal [facility] Consultation - Surgicalon Consultation - Surgical Normal [facility] Folate [Mass/volume] in Seru m or PlasmaOrdered By: Maddie Merchant on 03-09-2025 Folate [Mass/Vol] 15.10 ng/mL 4.60-34.80 [facility] Folates,Serum (Folic Acid)on 03-09-2025 FOLATES,SERUM 15.10 ng/mL Normal 4.60-34.80 [facility] Comment on above: Performed By: #### L 506.0200 ####[facility] [address] [place], [place], [address] Kidney and Bladderon 025 Kidney and Bladder Normal [facility] Random urine creatinine natalia urement (mass/volume)Ordered By: Zarina Adler on 03-09-2025 Creatinine Unsp time (U) [Mass/Vol] 37.70 mg/dL 28.00-217.0 0 [facility] Serum or plasma creatine kin ase activityOrdered By: Broderick Dempsey on 03-09-2025 CK [Catalytic activity/Vol] 308 U/L High 24-195 [facility] Urine Cultureon 03-09-2025 URC Normal [facility] Comment on above: Performed By: #### M 100.2200 ####[facility] [address] [place], [address] Urine protein measurement (m ass/volume)Ordered By: Zarina Adler on 03-09-2025 Protein (U) [Mass/Vol] 8.5 mg/dL 0.0-12.0 [facility] Urine protein/creatinine mas s ratioOrdered By: Zarina Adler on 03-09-2025 Protein/Creatinine (U) [Mass ratio] 226 mg/g CRE High 0-200 [facility] Bedside Glucoseon 03-08-2025 FINGERSTICK GLU 249 mg/dL High 74-106 [facility] Comment on above: Result Comment: JEREMIAS GEMENT OF PATIENT CARE PER NURSING PROTOCOL Performed By: #### L 501.080 ####[facility] [address] [facility] [address] FINGERSTICK GLU 200 mg/dL High [facility]106 [facility] Comment on above: Result Comment: JEREMIAS GEMENT OF PATIENT CARE PER NURSING PROTOCOL Performed By: #### L 501.080 ####[facility] [address] [facility] [address] FINGERSTICK GLU 165 mg/dL High [facility]106 [facility] Comment on above: Result Comment: JEREMIAS GEMENT OF PATIENT CARE PER NURSING PROTOCOL Performed By: #### L 501.080 ####[facility] [address] [facility] [address] FINGERSTICK GLU 159 mg/dL High [facility]106 [facility] Comment on above: Result Comment: JEREMIAS GEMENT OF PATIENT CARE PER NURSING PROTOCOL Performed By: #### L 501.080 ####[facility] [address] [place], [address] FINGERSTICK GLU 283 mg/dL High [facility]106 [facility] Comment on above: Result Comment: JEREMIAS GEMENT OF PATIENT CARE PER NURSING PROTOCOL Performed By: #### L 501.080 ####[facility] [address] [facility] [address] Bilirubin, totalOrdered By: Maddie Merchant on 03-08-2025 Bilirubin [Mass/Vol] 0.25 mg/dL 0.00-1.30 [facility] CBC W/Diff, Automatedon 02-18 Absolute Lymph 1.08 X10 3/uL Normal 0.83-4.51 [facility] Comment on above: Performed By: #### L 100.0100, L500.4050, L501.9985, L503.6550, L501.3620, L503.0106, L503.6030 ####[facility] [address] [place], [address] Absolute Neut 7.1 X10 3/uL Normal 2.0-7.7 [facility] Comment on above: Performed By: #### L 100.0100, L500.4050, L501.9985, L503.6550, L501.3620, L503.0106, L503.6030 ####[facility] [address] [place], [address] Basophils/100 WBC (Bld) 0.4 % Normal 0-1 [facility] Comment on above: Performed By: #### L 100.0100, L500.4050, L501.9985, L503.6550, L501.3620, L503.0106, L503.6030 ####[facility] [address] [place], [address] Eosinophils/100 WBC (Bld) 1.6 % Normal 0-5 [facility] Comment on above: Performed By: #### L 100.0100, L500.4050, L501.9985, L503.6550, L501.3620, L503.0106, L503.6030 ####[facility] [address] [place], [address] Erythrocyte distribution width (RBC) [Ratio] 14.5 % Normal 11.6-14.6 [facility] Comment on above: Performed By: #### L 100.0100, L500.4050, L501.9985, L503.6550, L501.3620, L503.0106, L503.6030 ####[facility] [address] [place], [address] Hematocrit (Bld) [Volume fraction] 25.1 % Low 37-47 [facility] Comment on above: Performed By: #### L 100.0100, L500.4050, L501.9985, L503.6550, L501.3620, L503.0106, L503.6030 ####[facility] [address] [place], [address] Hemoglobin (Bld) [Mass/Vol] 7.9 g/dL Low 12.0-15.0 [facility] Comment on above: Performed By: #### L 100.0100, L500.4050, L501.9985, L503.6550, L501.3620, L503.0106, L503.6030 ####[facility] [address] [place], [address] IG% 0.700 Normal 0.0-0.9 [facility] Comment on above: Result Comment: IG% - Immature Granulocytes (promyelocytes, myelocytes andmetamyelocytes) > 1% indicates that a LEFT SHIFT is Present. Performed By: #### L 100.0100, L500.4050, L501.9985, L503.6550, L501.3620, L503.0106, L503.6030 ####[facility] [address] [place], [address] Lymphocytes/100 WBC (Bld) 11.7 % Low 19-41 [facility] Comment on above: Performed By: #### L 100.0100, L500.4050, L501.9985, L503.6550, L501.3620, L503.0106, L503.6030 ####[facility] [address] [place], [address] MCH (RBC) [Entitic mass] 28.2 pg Normal 27.0-32.0 [facility] Comment on above: Performed By: #### L 100.0100, L500.4050, L501.9985, L503.6550, L501.3620, L503.0106, L503.6030 ####[facility] [address] [place], [address] MCHC (RBC) [Mass/Vol] 31.5 g/dL Low 32-36 [facility] Comment on above: Performed By: #### L 100.0100, L500.4050, L501.9985, L503.6550, L501.3620, L503.0106, L503.6030 ####[facility] [address] [place], [address] MCV (RBC) [Entitic vol] 89.6 fL Normal 81-99 [facility] Comment on above: Performed By: #### L 100.0100, L500.4050, L501.9985, L503.6550, L501.3620, L503.0106, L503.6030 ####[facility] [address] [place], [address] Monocytes/100 WBC (Bld) 9.1 % Normal 0-10 [facility] Comment on above: Performed By: #### L 100.0100, L500.4050, L501.9985, L503.6550, L501.3620, L503.0106, L503.6030 ####[facility] [address] [place], [address] Neutrophils/100 WBC (Bld) 76.5 % High 47-70 [facility] Comment on above: Performed By: #### L 100.0100, L500.4050, L501.9985, L503.6550, L501.3620, L503.0106, L503.6030 ####[facility] [address] [place], [address] Nucleated RBC (Bld) [#/Vol] 0 10*3/uL Normal 0-5 [facility] Comment on above: Performed By: #### L 100.0100, L500.4050, L501.9985, L503.6550, L501.3620, L503.0106, L503.6030 ####[facility] [address] [place], [address] Platelet mean volume (Bld) [Entitic vol] 11.6 fL Normal 6.2-12.0 [facility] Comment on above: Performed By: #### L 100.0100, L500.4050, L501.9985, L503.6550, L501.3620, L503.0106, L503.6030 ####[facility] [address] [place], [address] Platelets (Bld) [#/Vol] 185 10*3/uL Normal 150-450 [facility] Comment on above: Performed By: #### L 100.0100, L500.4050, L501.9985, L503.6550, L501.3620, L503.0106, L503.6030 ####[facility] [address] [place], [address] RBC (Bld) [#/Vol] 2.80 10*6/uL Low 4.2-5.4 [facility] Comment on above: Performed By: #### L 100.0100, L500.4050, L501.9985, L503.6550, L501.3620, L503.0106, L503.6030 ####[facility] [address] [place], [address] RDW SD 46.7 fl High 35.1-43.9 [facility] Comment on above: Performed By: #### L 100.0100, L500.4050, L501.9985, L503.6550, L501.3620, L503.0106, L503.6030 ####[facility] [address] [place], [address] WBC (Bld) [#/Vol] 9.2 10*3/uL Normal 4.4-11.0 [facility] Comment on above: Performed By: #### L 100.0100, L500.4050, L501.9985, L503.6550, L501.3620, L503.0106, L503.6030 ####[facility] [address] [place], [address] CPK Total, Creatine Kinaseon 03-08-2025 CPK TOTAL 736 U/L High 24-195 [facility] Comment on above: Performed By: #### L 100.0100, L500.4050, L501.9985, L503.6550, L501.3620, L503.0106, L503.6030 ####[facility] [address] [place], [address] Comprehensive Metabolic Prof ilon 03-08-2025 Albumin [Mass/Vol] 2.6 g/dL Low 3.4-4.8 [facility] Comment on above: Performed By: #### L 100.0100, L500.4050, L501.9985, L503.6550, L501.3620, L503.0106, L503.6030 ####[facility] [address] [place], [address] Albumin/Globulin [Mass ratio] 1.1 {ratio} Normal 0.9-2.4 [facility] Comment on above: Performed By: #### L 100.0100, L500.4050, L501.9985, L503.6550, L501.3620, L503.0106, L503.6030 ####[facility] [address] [place], [address] ALK PHOS 58 U/L Normal 35-104 [facility] Comment on above: Performed By: #### L 100.0100, L500.4050, L501.9985, L503.6550, L501.3620, L503.0106, L503.6030 ####[facility] [address] [place], [address] ALT [Catalytic activity/Vol] 48 U/L High <=34 [facility] Comment on above: Performed By: #### L 100.0100, L500.4050, L501.9985, L503.6550, L501.3620, L503.0106, L503.6030 ####[facility] [address] [place], [address] AST [Catalytic activity/Vol] 45 U/L High <=31 [facility] Comment on above: Performed By: #### L 100.0100, L500.4050, L501.9985, L503.6550, L501.3620, L503.0106, L503.6030 ####[facility] [address] [place], [address] Bilirubin [Mass/Vol] 0.25 mg/dL Normal 0.00-1.30 [facility] Comment on above: Performed By: #### L 100.0100, L500.4050, L501.9985, L503.6550, L501.3620, L503.0106, L503.6030 ####[facility] [address] [place], [address] BUN/CRE 52.5 RATIO High 10-20 [facility] Comment on above: Performed By: #### L 100.0100, L500.4050, L501.9985, L503.6550, L501.3620, L503.0106, L503.6030 ####[facility] [address] [place], [address] Calcium [Mass/Vol] 8.1 mg/dL Normal 7.6-11.0 [facility] Comment on above: Performed By: #### L 100.0100, L500.4050, L501.9985, L503.6550, L501.3620, L503.0106, L503.6030 ####[facility] [address] [place], [address] Chloride [Moles/Vol] 111 mmol/L High 98-108 [facility] Comment on above: Performed By: #### L 100.0100, L500.4050, L501.9985, L503.6550, L501.3620, L503.0106, L503.6030 ####[facility] [address] [place], [address] CO2 [Moles/Vol] 17.3 mmol/L Low 21.0-32.0 [facility] Comment on above: Performed By: #### L 100.0100, L500.4050, L501.9985, L503.6550, L501.3620, L503.0106, L503.6030 ####[facility] [address] [place], [address] Creatinine [Mass/Vol] 2.02 mg/dL High 0.70-1.20 [facility] Comment on above: Performed By: #### L 100.0100, L500.4050, L501.9985, L503.6550, L501.3620, L503.0106, L503.6030 ####[facility] [address] [place], [address] ECRCL 25.62 ml/min Low 50-250 [facility] Comment on above: Performed By: #### L 100.0100, L500.4050, L501.9985, L503.6550, L501.3620, L503.0106, L503.6030 ####[facility] [address] [place], [address] GAP 14 Normal 5-15 [facility] Comment on above: Performed By: #### L 100.0100, L500.4050, L501.9985, L503.6550, L501.3620, L503.0106, L503.6030 ####[facility] [address] [place], [address] GFR/1.73 sq M.predicted among non-blacks MDRD (S/P/Bld) [Vol rate/Area] 26 mL/min/{1.73_m2} Low >60 [facility] Comment on above: Result Comment: mL/m in/1.73m2 CKD-EPI Creatinine Equation (2020) Performed By: #### L 100.0100, L500.4050, L501.9985, L503.6550, L501.3620, L503.0106, L503.6030 ####[facility] [address] [place], [address] Globulin (S) [Mass/Vol] 2.4 g/dL Normal 2.2-4.2 [facility] Comment on above: Performed By: #### L 100.0100, L500.4050, L501.9985, L503.6550, L501.3620, L503.0106, L503.6030 ####[facility] [address] [place], [address] Glucose [Mass/Vol] 172 mg/dL High 70-99 [facility] Comment on above: Performed By: #### L 100.0100, L500.4050, L501.9985, L503.6550, L501.3620, L503.0106, L503.6030 ####[facility] [address] [place], [address] Potassium [Moles/Vol] 3.8 mmol/L Normal 3.3-5.1 [facility] Comment on above: Performed By: #### L 100.0100, L500.4050, L501.9985, L503.6550, L501.3620, L503.0106, L503.6030 ####[facility] [address] [place], [address] Sodium [Moles/Vol] 143 mmol/L Normal 133-145 [facility] Comment on above: Performed By: #### L 100.0100, L500.4050, L501.9985, L503.6550, L501.3620, L503.0106, L503.6030 ####[facility] [address] [place], [address] T PROT 5.1 g/dL Low 5.9-8.4 [facility] Comment on above: Performed By: #### L 100.0100, L500.4050, L501.9985, L503.6550, L501.3620, L503.0106, L503.6030 ####[facility] [address] [place], [address] Urea nitrogen [Mass/Vol] 106 mg/dL Invalid Interpretation Code 4-19 [facility] Comment on above: Result Comment: Crit ical Result(s) Called at: by:??[facility] Result(s) Called to Zoraida PENNINGTON (MS3): Blaiser:??Results read back by same. Performed By: #### L 100.0100, L500.4050, L501.9985, L503.6550, L501.3620, L503.0106, L503.6030 ####[facility] [address] [place], [address] Ferritinon 03-08-2025 Ferritin [Mass/Vol] 270 ng/mL Normal 22-378 [facility] Comment on above: Performed By: #### L 100.0100, L500.4050, L501.9985, L503.6550, L501.3620, L503.0106, L503.6030 ####[facility] [address] [place], [address] HH, Hemoglobin AND Hematocri ton 03-08-2025 Hematocrit (Bld) [Volume fraction] 24.0 % Low 37-47 [facility] Comment on above: Performed By: #### L 100.0600 ####[facility] [address] [place], [address] Hemoglobin (Bld) [Mass/Vol] 7.7 g/dL Low 12.0-15.0 [facility] Comment on above: Performed By: #### L 100.0600 ####[facility] [address] [place], [address] Hemoglobin A1con 03-08-2025 HbA1c (Bld) [Mass fraction] 6.5 % High <=5.6 [facility] Comment on above: Result Comment: Norm al < 5.7 % Prediabetic 5.7 - 6.4 % Diabetic >or= 6.5 % Please note range changes. Performed By: #### L 100.0100, L500.4050, L501.9985, L503.6550, L501.3620, L503.0106, L503.6030 ####[facility] [address] [place], [address] Hemoglobin A1c percentageOrd ered By: Maddie Merchant on 03-08-2025 HbA1c (Bld) [Mass fraction] 6.5 % High <5.7 [facility] Comment on above: Normal < 5.7 % Predi abetic 5.7 - 6.4 % Diabetic >or= 6.5 % Please note range changes. Iron measurement (mass/mass) Ordered By: Maddie Merchant on 03-08-2025 Iron (Unsp spec) [Mass/Mass] 18 ug/dL Low 50-170 [facility] Iron+Iron Binding Capacityon 03-08-2025 TIBC TNP Normal 250-450 [facility] Comment on above: Performed By: #### L 100.0100, L500.4050, L501.9985, L503.6550, L501.3620, L503.0106, L503.6030 ####[facility] [address] [place], [place], [id number] Laboratory - Chemistry and C hemistry - challengeOrdered By: Maddie Merchant on 03-08-2025 AST [Catalytic activity/Vol] 45 U/L High <32 [facility] No Panel InformationOrdered By: Maddie Merchant on 03-08-2025 Unsaturated Iron Binding Capacity 150 ug/dL Low 228-428 [facility] 45 U/L High <32 [facility] 150 ug/dL Low 228-428 [facility] Serum globulin measurementOr dered By: Maddie Merchant on 03-08-2025 Globulin (S) [Mass/Vol] 2.4 g/dL 2.2-4.2 [facility] Serum or plasma alanine anaya otransferase (ALT) measurementOrdered By: Maddie Merchant on 03-08-2025 ALT [Catalytic activity/Vol] 48 U/L High <35 [facility] Serum or plasma albumin natalia urement (mass/volume)Ordered By: Maddie Merchant on 03-08-2025 Albumin [Mass/Vol] 2.6 g/dL Low 3.4-4.8 [facility] Serum or plasma albumin/glob ulin mass ratioOrdered By: Maddie Merchant 03-08-2025 Albumin/Globulin [Mass ratio] 1.1 {ratio} 0.9-2.4 [facility] Serum or plasma alkaline chelsie sphatase measurementOrdered By: Maddie Merchant 03-08-2025 ALP [Catalytic activity/Vol] 58 U/L 35-104 [facility] Serum or plasma ferritin areli surement (mass/volume)Ordered By: Maddie Merchant on 03-08-2025 Ferritin [Mass/Vol] 270 ng/mL 22-378 [facility] Serum or plasma iron saturat ion measurement (mass fraction)Ordered By: Maddie Merchant on 03-08-2025 Iron saturation [Mass fraction] 11.0 % Low 13-59 [facility] Total proteinOrdered By: Stacia Merchant on 03-08-2025 Protein [Mass/Vol] 5.1 g/dL Low 5.9-8.4 [facility] Vitamin B12on 03-08-2025 Cobalamin (Vitamin B12) [Mass/Vol] 3538 pg/mL High 180-914 [facility] Comment on above: Performed By: #### L 100.0100, L500.4050, L501.9985, L503.6550, L501.3620, L503.0106, L503.6030 ####[facility] [address] [place], [address] Vitamin B12 ser/plasOrdered By: Maddie Merchant on 03-08-2025 Cobalamin (Vitamin B12) [Mass/Vol] 3538 pg/mL High 180-914 [facility] 12 Lead EKGon 03-07-2025 12 Lead EKG Normal [facility] Absolute neutrophil countOrd ered By: Megan Anderson on 03-07-2025 Neutrophils (Bld) [#/Vol] 12.9 10*3/uL High 2.0-7.7 [facility] Anion gap in Serum or Plasma Ordered By: Megan Anderson on 03-07-2025 Anion gap [Moles/Vol] 18 mmol/L High 5-15 [facility] BUN/creatinine ratioOrdered By: Megan Anderson on 03-07-2025 Urea nitrogen/Creatinine [Mass ratio] 51.2 mg/mg High 10-20 [facility] Basic Metabolic Profile (BMP )on 03-07-2025 BUN/CRE 51.2 RATIO High 10-20 [facility] Comment on above: Performed By: #### L 500.2500, L501.3620, L100.0100 ####[facility] [address] [place], [address] Calcium [Mass/Vol] 8.8 mg/dL Normal 7.6-11.0 [facility] Comment on above: Performed By: #### L 500.2500, L501.3620, L100.0100 ####[facility] [address] [place], [address] Chloride [Moles/Vol] 105 mmol/L Normal 98-108 [facility] Comment on above: Performed By: #### L 500.2500, L501.3620, L100.0100 ####[facility] [address] [place], [address] CO2 [Moles/Vol] 16.8 mmol/L Low 21.0-32.0 [facility] Comment on above: Performed By: #### L 500.2500, L501.3620, L100.0100 ####[facility] [address] [place], [address] Creatinine [Mass/Vol] 2.54 mg/dL High 0.70-1.20 [facility] Comment on above: Performed By: #### L 500.2500, L501.3620, L100.0100 ####[facility] [address] [place], [address] ECRCL 20.75 ml/min Low 50-250 [facility] Comment on above: Performed By: #### L 500.2500, L501.3620, L100.0100 ####[facility] [address] [place], [address] GAP 18 High 5-15 [facility] Comment on above: Performed By: #### L 500.2500, L501.3620, L100.0100 ####[facility] [address] [place], [address] GFR/1.73 sq M.predicted among non-blacks MDRD (S/P/Bld) [Vol rate/Area] 19 mL/min/{1.73_m2} Low >60 [facility] Comment on above: Result Comment: mL/m in/1.73m2 CKD-EPI Creatinine Equation (2020) Performed By: #### L 500.2500, L501.3620, L100.0100 ####[facility] [address] [place], [address] Glucose [Mass/Vol] 178 mg/dL High 70-99 [facility] Comment on above: Performed By: #### L 500.2500, L501.3620, L100.0100 ####[facility] [address] [place], [address] Potassium [Moles/Vol] 4.5 mmol/L Normal 3.3-5.1 [facility] Comment on above: Performed By: #### L 500.2500, L501.3620, L100.0100 ####[facility] [address] [place], [address] Sodium [Moles/Vol] 140 mmol/L Normal 133-145 [facility] Comment on above: Performed By: #### L 500.2500, L501.3620, L100.0100 ####[facility] [address] [place], [address] Urea nitrogen [Mass/Vol] 130 mg/dL Invalid Interpretation Code 03-07 [facility] Comment on above: Result Comment: Crit ical Result(s) Called at: by:??[facility] Result(s) Called ACOLE at: 1532 by:CHRISTIN??Results read back by same. Performed By: #### L 500.2500, L501.3620, L100.0100 ####[facility] [address] [place], [address] Basophil percentageOrdered B y: Megan Anderson on 03-07-2025 Basophils/100 WBC (Bld) 0.3 % 0-1 [facility] Bilirubin Test strip Ql (U)O rdered By: Megan Anderson on 03-07-2025 Bilirubin Ql (U) Negative Negative [facility] Bilirubin directOrdered By: Maddie Merchant on 03-07-2025 Bilirubin.direct [Mass/Vol] 0.25 mg/dL 0.00-0.30 [facility] CBC W/Diff, Automatedon 02-17 Absolute Lymph 0.76 X10 3/uL Low 0.83-4.51 [facility] Comment on above: Performed By: #### L 500.2500, L501.3620, L100.0100 ####[facility] [address] [place], [address] Absolute Neut 12.9 X10 3/uL High 2.0-7.7 [facility] Comment on above: Performed By: #### L 500.2500, L501.3620, L100.0100 ####[facility] [address] [place], [address] Basophils/100 WBC (Bld) 0.3 % Normal 0-1 [facility] Comment on above: Performed By: #### L 500.2500, L501.3620, L100.0100 ####[facility] [address] [place], [address] Eosinophils/100 WBC (Bld) 0.4 % Normal 0-5 [facility] Comment on above: Performed By: #### L 500.2500, L501.3620, L100.0100 ####[facility] [address] [place], [address] Erythrocyte distribution width (RBC) [Ratio] 14.5 % Normal 11.6-14.6 [facility] Comment on above: Performed By: #### L 500.2500, L501.3620, L100.0100 ####[facility] [address] [place], [address] Hematocrit (Bld) [Volume fraction] 27.2 % Low 37-47 [facility] Comment on above: Performed By: #### L 500.2500, L501.3620, L100.0100 ####[facility] [address] [place], [address] Hemoglobin (Bld) [Mass/Vol] 8.7 g/dL Low 12.0-15.0 [facility] Comment on above: Performed By: #### L 500.2500, L501.3620, L100.0100 ####[facility] [address] [place], [address] IG% 1.000 High 0.0-0.9 [facility] Comment on above: Result Comment: IG% - Immature Granulocytes (promyelocytes, myelocytes andmetamyelocytes) > 1% indicates that a LEFT SHIFT is Present. Performed By: #### L 500.2500, L501.3620, L100.0100 ####[facility] [address] [place], [address] Lymphocytes/100 WBC (Bld) 5.2 % Low 19-41 [facility] Comment on above: Performed By: #### L 500.2500, L501.3620, L100.0100 ####[facility] [address] [place], [address] MCH (RBC) [Entitic mass] 28.3 pg Normal 27.0-32.0 [facility] Comment on above: Performed By: #### L 500.2500, L501.3620, L100.0100 ####[facility] [address] [place], [address] MCHC (RBC) [Mass/Vol] 32.0 g/dL Normal 32-36 [facility] Comment on above: Performed By: #### L 500.2500, L501.3620, L100.0100 ####[facility] [address] [place], [address] MCV (RBC) [Entitic vol] 88.6 fL Normal 81-99 [facility] Comment on above: Performed By: #### L 500.2500, L501.3620, L100.0100 ####[facility] [address] [place], [address] Monocytes/100 WBC (Bld) 5.3 % Normal 0-10 [facility] Comment on above: Performed By: #### L 500.2500, L501.3620, L100.0100 ####[facility] [address] [place], [address] Neutrophils/100 WBC (Bld) 87.8 % High 47-70 [facility] Comment on above: Performed By: #### L 500.2500, L501.3620, L100.0100 ####[facility] [address] [place], [address] Nucleated RBC (Bld) [#/Vol] 0 10*3/uL Normal 0-5 [facility] Comment on above: Performed By: #### L 500.2500, L501.3620, L100.0100 ####[facility] [address] [place], [address] Platelet mean volume (Bld) [Entitic vol] 11.3 fL Normal 6.2-12.0 [facility] Comment on above: Performed By: #### L 500.2500, L501.3620, L100.0100 ####[facility] [address] [place], [address] Platelets (Bld) [#/Vol] 216 10*3/uL Normal 150-450 [facility] Comment on above: Performed By: #### L 500.2500, L501.3620, L100.0100 ####[facility] [address] [place], [address] RBC (Bld) [#/Vol] 3.07 10*6/uL Low 4.2-5.4 [facility] Comment on above: Performed By: #### L 500.2500, L501.3620, L100.0100 ####[facility] [address] [place], [address] RDW SD 45.6 fl High 35.1-43.9 [facility] Comment on above: Performed By: #### L 500.2500, L501.3620, L100.0100 ####[facility] [address] [place], [address] WBC (Bld) [#/Vol] 14.7 10*3/uL High 4.4-11.0 [facility] Comment on above: Performed By: #### L 500.2500, L501.3620, L100.0100 ####[facility] [address] [place], [address] CPK Total, Creatine Kinaseon 03-07-2025 CPK TOTAL 837 U/L High 24-195 [facility] Comment on above: Performed By: #### L 500.2500, L501.3620, L100.0100 ####[facility] [address] [place], [address] Carbon dioxide, total [Moles /volume] in Central venous bloodOrdered By: Megan Anderson on 03-07-2025 CO2 [Moles/Vol] 16.8 mmol/L Low 21.0-32.0 [facility] Chest 1 View (Portable)on Chest 1 View (Portable) Normal [facility] Chloride assayOrdered By: Teri Anderson on 03-07-2025 Chloride [Moles/Vol] 105 mmol/L 98-108 [facility] Emergency Department Summary on 03-07-2025 Emergency Department Summary Normal [facility] Eosinophil percentageOrdered By: Megan Anderson on 03-07-2025 Eosinophils/100 WBC (Bld) 0.4 % 0-5 [facility] Epithelial cells.squamous LM Ql (Urine sed)Ordered By: Megan Anderson on 03-07-2025 Epithelial cells.squamous LM.HPF (Urine sed) [#/Area] 0 /[HPF] 5-10 [facility] Erythrocyte distribution wid th (RBC) [Ratio]Ordered By: Megan Anderson on 03-07-2025 Erythrocyte distribution width (RBC) [Entitic vol] 45.6 fL High 35.1-43.9 [facility] Erythrocyte distribution wid th ratioOrdered By: Megan Anderson on 03-07-2025 Erythrocyte distribution width (RBC) [Ratio] 14.5 % 11.6-14.6 [facility] Estimation of creatinine chirag aranceOrdered By: Megan Anderson on 03-07-2025 Estimated Creatinine Clearance Calc 20.75 ml/min Low 50-250 [facility] GFR/1.73 sq M.predicted sadia g non-blacks MDRD (S/P/Bld) [Vol rate/Area]Ordered By: Megan Anderson on 03-07-2025 Estimated GFR (MDRD) Non-Af Amer 19 Low >60 [facility] Comment on above: mL/min/1.73m2 CKD-EP I Creatinine Equation (2020) Glucose Ql (U)Ordered By: Teri Anderson on 03-07-2025 Urine Glucose (UA) Normal mg/dl Normal [facility] H AND P Exam - Hospitaliston 03-07-2025 H&P Exam - Hospitalist Normal [facility] HH, Hemoglobin AND Hematocri ton 03-07-2025 Hematocrit (Bld) [Volume fraction] 25.0 % Low 37-47 [facility] Comment on above: Performed By: #### L 100.0600 ####[facility] [address] [place], [place], [address] Hemoglobin (Bld) [Mass/Vol] 8.3 g/dL Low 12.0-15.0 [facility] Comment on above: Performed By: #### L 100.0600 ####[facility] [address] [place], [place], [address] HIP, UNI W/ Pelvis 2-3 Views on 03-07-2025 HIP, UNI W/ Pelvis 2-3 Views Normal [facility] Hematocrit Auto (Bld) [Volum e fraction]Ordered By: Megan Anderson on 03-07-2025 Hematocrit (Bld) [Volume fraction] 27.2 % Low 37-47 [facility] Hemoglobin measurementOrdere d By: Megan Anderson on 03-07-2025 Hemoglobin (Bld) [Mass/Vol] 8.7 g/dL Low 12.0-15.0 [facility] Immature granulocytes/100 WB C Auto (Bld)Ordered By: Megan Anderson on 03-07-2025 Immature granulocytes/100 WBC (Bld) 1.000 % High 0.0-0.9 [facility] Comment on above: IG% - Immature Granu locytes (promyelocytes, myelocytes and metamyelocytes) > 1% indicates that a LEFT SHIFT is Present. Ketones Test strip Ql (U)Ord ered By: Megan Anderson on 03-07-2025 Ketones Ql (U) 5 mg/dl High Negative [facility] Liver Profileon 03-07-2025 Albumin [Mass/Vol] 3.1 g/dL Low 3.4-4.8 [facility] Comment on above: Order Comment: Comme nts: May add to ED labsComments: may add to ED labs Performed By: #### L 501.5200, L501.2300, L500.3400 ####[facility] [address] [place], [address] ALK PHOS 66 U/L Normal 35-104 [facility] Comment on above: Order Comment: Comme nts: May add to ED labsComments: may add to ED labs Performed By: #### L 501.5200, L501.2300, L500.3400 ####[facility] [address] [place], [address] ALT [Catalytic activity/Vol] 60 U/L High <=34 [facility] Comment on above: Order Comment: Comme nts: May add to ED labsComments: may add to ED labs Performed By: #### L 501.5200, L501.2300, L500.3400 ####[facility] [address] [place], [address] AST [Catalytic activity/Vol] 52 U/L High <=31 [facility] Comment on above: Order Comment: Comme nts: May add to ED labsComments: may add to ED labs Performed By: #### L 501.5200, L501.2300, L500.3400 ####[facility] [address] [place], [address] Bilirubin [Mass/Vol] 0.42 mg/dL Normal 0.00-1.30 [facility] Comment on above: Order Comment: Comme nts: May add to ED labsComments: may add to ED labs Performed By: #### L 501.5200, L501.2300, L500.3400 ####[facility] [address] [place], [address] Bilirubin.direct [Mass/Vol] 0.25 mg/dL Normal 0.00-0.30 [facility] Comment on above: Order Comment: Comme nts: May add to ED labsComments: may add to ED labs Performed By: #### L 501.5200, L501.2300, L500.3400 ####[facility] [address] [place], [address] Globulin (S) [Mass/Vol] 2.8 g/dL Normal 2.2-4.2 [facility] Comment on above: Order Comment: Comme nts: May add to ED labsComments: may add to ED labs Performed By: #### L 501.5200, L501.2300, L500.3400 ####[facility] [address] [place], [address] T PROT 5.9 g/dL Normal 5.9-8.4 [facility] Comment on above: Order Comment: Comme nts: May add to ED labsComments: may add to ED labs Performed By: #### L 501.5200, L501.2300, L500.3400 ####[facility] [address] [place], [address] Lower GI hemoglobin IA Ql (S tl)Ordered By: Megan Anderson on 03-07-2025 Stool Occult Blood (ERICA) Positive Abnormal [facility] Lymphocytes Auto (Unsp spec) [#/Vol]Ordered By: Megan Anderson on 03-07-2025 Lymphocytes (Bld) [#/Vol] 0.76 10*3/uL Low 0.83-4.51 [facility] Lymphocytes/100 WBC Auto (Un sp spec)Ordered By: Megan Anderson on 03-07-2025 Lymphocytes/100 WBC (Bld) 5.2 % Low 19-41 [facility] MCV (mean corpuscular volume ) determinationOrdered By: Megan Anderson on 03-07-2025 MCV (RBC) [Entitic vol] 88.6 fL 81-99 [facility] Magnesiumon 03-07-2025 Magnesium [Mass/Vol] 2.9 mg/dL High 1.5-2.2 [facility] Comment on above: Order Comment: Comme nts: May add to ED labsComments: may add to ED labs Performed By: #### L 501.5200, L501.2300, L500.3400 ####[facility] [address] [place], [address] Magnesium measurement (mass/ volume)Ordered By: Maddie Merchant on 03-07-2025 Magnesium (Unsp spec) [Mass/Vol] 2.9 mg/dL High 1.5-2.2 [facility] Mean corpuscular hemoglobin (MCH) determinationOrdered By: Megan Anderson on 03-07-2025 MCH (RBC) [Entitic mass] 28.3 pg 27.0-32.0 [facility] Mean corpuscular hemoglobin concentration (MCHC) determinationOrdered By: Megan Anderson on 03-07-2025 MCHC (RBC) [Mass/Vol] 32.0 g/dL 32-36 [facility] Mean platelet volume determi nationOrdered By: Megan Anderson on 03-07-2025 Platelet mean volume (Bld) [Entitic vol] 11.3 fL 6.2-12.0 [facility] Microscopic analysis of urin e for red blood cells (RBC)Ordered By: Megan Anderson on 03-07-2025 Microscopic analysis of urine for red blood cells (RBC) 0 SEEN /hpf 0-5 [facility] Urine RBC 0 SEEN /hpf 0-5 [facility] Monocyte percentageOrdered B y: Megan Ozzienahomy on 03-07-2025 Monocytes/100 WBC (Bld) 5.3 % 0-10 [facility] Mucus LM Ql (Urine sed)Order ed By: Megan Justin on 03-07-2025 Mucus Ql (Urine sed) 0 SEEN /hpf [facility] Neutrophil percentageOrdered By: Megan Anderson on 03-07-2025 Neutrophils/100 WBC (Bld) 87.8 % High 47-70 [facility] Nitrite Test strip Ql (U)Ord ered By: Megan Anderson on 03-07-2025 Nitrite Ql (U) Positive High Negative [facility] Nucleated red blood cell per centageOrdered By: Megan Anderson on 03-07-2025 Nucleated RBC/100 WBC (Bld) [Ratio] 0 % 0-5 [facility] Phosphoruson 03-07-2025 Phosphate [Mass/Vol] 5.0 mg/dL High 2.7-4.5 [facility] Comment on above: Order Comment: Comme nts: May add to ED labsComments: may add to ED labs Performed By: #### L 501.5200, L501.2300, L500.3400 ####[facility] [address] [place], [address] Platelet countOrdered By: Teri Anderson on 03-07-2025 Platelets (Bld) [#/Vol] 216 10*3/uL 150-450 [facility] Potassium (Unsp spec) [Mass/ Vol]Ordered By: Megan Anderson on 03-07-2025 Potassium [Moles/Vol] 4.5 mmol/L 3.3-5.1 [facility] Protein Test strip Ql (U)Ord ered By: Megan Anderson on 03-07-2025 Protein Ql (U) 30 mg/dl High Negative [facility] RBC Auto (Bld) [#/Vol]Ordere d By: Megan Anderson on 03-07-2025 RBC (Bld) [#/Vol] 3.07 10*6/uL Low 4.2-5.4 [facility] Serum creatinine measurement (mass/volume)Ordered By: Megan Anderson on 03-07-2025 Creatinine [Mass/Vol] 2.54 mg/dL High 0.70-1.20 [facility] Serum glucose measurement (m ass/volume)Ordered By: Megan Anderson on 03-07-2025 Glucose [Mass/Vol] 178 mg/dL High 70-99 [facility] Serum or plasma calcium natalia urement (mass/volume)Ordered By: Megan Anderson on 03-07-2025 Calcium [Mass/Vol] 8.8 mg/dL 7.6-11.0 [facility] Serum or plasma creatine kin ase activityOrdered By: Megan Anderson on 03-07-2025 CK [Catalytic activity/Vol] 837 U/L High 24-195 [facility] Serum or plasma urea nitroge n measurement (mass/volume)Ordered By: Megan Anderson on 03-07-2025 Urea nitrogen [Mass/Vol] 130 mg/dL High 4-19 [facility] Comment on above: Critical Result(s) C alled at: by: Results read back by same.Critical Result(s) Called ACOLE at: 1532 by: CHRISTIN Results read back by same. Sodium levelOrdered By: Megan Anderson on 03-07-2025 Sodium [Moles/Vol] 140 mmol/L 133-145 [facility] Squamous epithelial cells de tection in urine sediment by light microscopyOrdered By: Megan Anderson on 03-07-2025 Epithelial cells.squamous LM Ql (Urine sed) 0 SEEN /hpf 5-10 [facility] Stool Occult Blood iFOBon STOB Positive Normal [facility] Comment on above: Performed By: #### M 100.2683 ####[facility] [address] [place], [place], [address] Stool gastrointestinal hemog lobin detection by immunologic methodOrdered By: Megan Anderson on 03-07-2025 Lower GI hemoglobin IA Ql (Stl) Positive Abnormal [facility] Type AND Screenon 03-07-2025 ABO and Rh group Nom (Bld) Blood group A Rh(D) positive Normal [facility] Comment on above: Order Comment: HGI Performed By: #### B TS ####[facility] [address] [place], [address] Urinalysis, Completeon 03-07 BACTERIA 1+ /hpf Normal None Seen [facility] Comment on above: Order Comment: CORRIE CTOR TO SPECIFY Performed By: #### L 400.0001 ####[facility] [address] [place], [address] WBC >100 SEEN Normal 0-5 [facility] Comment on above: Order Comment: CORRIE CTOR TO SPECIFY Performed By: #### L 400.0001 ####[facility] [address] [place], [address] EPI,SQUAMOUS 0 SEEN Normal 5-10 [facility] Comment on above: Order Comment: CORRIE CTOR TO SPECIFY Performed By: #### L 400.0001 ####[facility] [address] [place], [address] Mucus Ql (Urine sed) 0 SEEN Normal [facility] Comment on above: Order Comment: CORRIE CTOR TO SPECIFY Performed By: #### L 400.0001 ####[facility] [address] [place], [address] RBC 0 SEEN Normal 0-5 [facility] Comment on above: Order Comment: COLLE CTOR TO SPECIFY Performed By: #### L 400.0001 ####[facility] [address] [place], [address] Urine blood detectionOrdered By: Megan Anderson on 03-07-2025 Urine Occult Blood 150 /ul High Negative [facility] Urine clarityOrdered By: Carmen Anderson on 03-07-2025 Clarity (U) Cloudy Clear [facility] Urine color determinationOrd ered By: Megan Anderson on 03-07-2025 Color (U) Yellow Yellow [facility] Urine cultureOrdered By: Mervin Becker on 03-07-2025 Bacteria identified Cx Nom (U) Klebsiella oxytoca Abnormal [facility] Urine glucose detectionOrder ed By: Megan Anderson on 03-07-2025 Glucose Ql (U) Normal mg/dl Normal [facility] Urine leukocyte esterase det ection by dipstickOrdered By: Megan Anderson on 03-07-2025 Leukocyte esterase Test strip Ql (U) 500 /ul High Negative [facility] Urine pHOrdered By: Megan louis on 03-07-2025 pH (U) 6.0 [pH] 5.0 - 8.0 [facility] Urine sediment bacteria coun t by microscopy (number/high power field)Ordered By: Megan Anderson on 03-07-2025 Bacteria LM.HPF (Urine sed) [#/Area] 1 /[HPF] None Seen [facility] Urine specific gravity measu rementOrdered By: Megan Anderson on 03-07-2025 Specific gravity (U) [Rel density] 1.015 1.002-1.030 [facility] Urine urobilinogen measureme ntOrdered By: Megan Anderson on 03-07-2025 Urobilinogen Ql (U) Normal mg/dl Normal [facility] Urobilinogen Ql (U)Ordered B y: Megan Anderson on 03-07-2025 Urine Urobilinogen Normal mg/dl Normal [facility] White blood cell (WBC) count Ordered By: Megan Anderson on 03-07-2025 WBC (Bld) [#/Vol] 14.7 10*3/uL High 4.4-11.0 [facility] White blood cell countOrdere d By: Megan Anderson on 03-07-2025 Urine WBC >100 SEEN /hpf 0-5 [facility] White blood cell count >100 SEEN /hpf 0-5 [facility] Culture, Anaerobic Any Sourc adonis 2025 CUAN Normal [facility] Comment on above: Performed By: #### M 100.2000, M100.3000, M100.4001 ####[facility] [address] [place], [address] Wound Cultureon 02-28-2025 WC Normal [facility] Comment on above: Performed By: #### M 100.1999, M100.3000, M100.4001 ####[facility] [address] [place], [address] Gram Stainon 02-27-2025 GS LEFT FOOT WOUND GRAM STAIN Gram Stain No Epithelial cells 1+ Gram positive cocci 1+ White Blood Cells Normal [facility] Comment on above: Performed By: #### M 100.1999, M100.3000, M100.4001 ####[facility] [address] [place], [address] Anaerobic cultureOrdered By: Patel Irene on 02-26-2025 Bacteria identified Anaer cx Nom (Unsp spec) Anaerobic cocci Abnormal [facility] Bacteria identified Anaer cx Nom (Unsp spec)Ordered By: Patel Irene on 02-26-2025 Anaerobic Culture Anaerobic cocci Abnormal [facility] Gram stainOrdered By: Keri Irene on 02-26-2025 Microscopic observation Gram stain Nom (Unsp spec) [facility] Routine wound cultureOrdered By: Patel Irene on 02-26-2025 Microbial culture, routine Meth. resistant Staph. aureus Abnormal [facility] Wound Culture Meth. resistant Stap h. aureus Abnormal [facility] Wound Cultureon 02-19-2025 WC Normal [facility] Comment on above: Performed By: #### M 100.2999, ####[facility] [address] [place], [address] Gram Stainon 02-17-2025 GS Gram Stain No White Blood Cells No organisms seen Normal [facility] Comment on above: Performed By: #### M 100.2999, ####[facility] [address] [place], [address] Decalcification bone/plaqueo n 02-16-2025 Decalcification bone/plaque Normal [facility] Comment on above: Performed By: #### P DEC ####[facility] [address] [place], [address] Gram stainOrdered By: Rishi Vasquez on 02-16-2025 Microscopic observation Gram stain Nom (Unsp spec) [facility] Routine wound cultureOrdered By: Rishi Vasquez on 02-16-2025 Microbial culture, routine Meth. resistant Staph. aureus Abnormal [facility] Wound Culture Meth. resistant Stap h. aureus Abnormal [facility] Wound Culture Negative Abnormal [facility] Wound Cultureon 02-06-2025 WC Normal [facility] Comment on above: Performed By: #### M 100.3000, M1.1999 ####[facility] [address] [place], [address] Gram Stainon 02-04-2025 GS Positive Normal [facility] Comment on above: Performed By: #### M 100.3000, M1.1999 ####[facility] [address] [place], [address] Gram stainOrdered By: Rishi Vasquez on 02-03-2025 Microscopic observation Gram stain Nom (Unsp spec) [facility] Routine wound cultureOrdered By: Rishi Vasquez on 02-03-2025 Microbial culture, routine Meth. resistant Staph. aureus Abnormal [facility] Wound Culture Meth. resistant Stap h. aureus Abnormal [facility] Lower Ext Art Exam w/o Exerc kris 01-06-2025 Lower Ext Art Exam w/o Exercis Normal [facility] Culture, Anaerobic Any Sourc adonis 01-03-2025 CUAN ONLY AN AEROBIC SWAB WAS RECEIVED FOR CULTURE. GROWTH OF ANAEROBES MAY BE INHIBITED. No anaerobic bacteria isolated. Normal [facility] Comment on above: Performed By: #### M 100.4001, M100.3000, M1.1999 ####[facility] [address] [place], [address] Wound Cultureon 01-02-2025 WC Normal [facility] Comment on above: Performed By: #### M 100.4001, M100.3000, M1.1999 ####[facility] [address] [place], [place], [address] Anaerobic cultureOrdered By: Patel Irene on 12-31-2024 Bacteria identified Anaer cx Nom (Unsp spec) No anaerobic bacteria isolated. [facility] Bacteria identified Anaer cx Nom (Unsp spec)Ordered By: Patel Irene on 12-31-2024 Anaerobic Culture No anaerobic bacteri a isolated. [facility] Gram Stainon 12-31-2024 GS ONLY AN AEROBIC SWAB WAS RECEIVED FOR CULTURE. GROWTH OF ANAEROBES MAY BE INHIBITED. Gram Stain 2+ Gram positive cocci 2+ Red Blood Cells Normal [facility] Comment on above: Performed By: #### M 100.4001, M100.3000, M100.1999 ####[facility] [address] [place], [address] Gram stainOrdered By: Keri Irene on 12-31-2024 Microscopic observation Gram stain Nom (Unsp spec) [facility] Routine wound cultureOrdered By: Patel Irene on 12-31-2024 Microbial culture, routine Meth. resistant Staph. aureus Abnormal [facility] Wound Culture Meth. resistant Stap h. aureus Abnormal [facility] [id number] 12-24-2024 [facility] Misc. COMMENT Normal . [facility] Comment on above: Order Comment: [id number] 1WOUND CULTURE Result Comment: Test Ordered: [id number] Anaerobic/Aerobic/Gram StainAnaerobic Culture Note: CB Final report [...] cephalosporins, clindamycin,and trimethoprim-sulfamethoxazole are not effectiveclinically. (CLSI, G182-Z31, 2016)Light growthEnterococci susceptible to penicillin are predictablysusceptible to ampicillin, amoxicillin, ampicillin-sulbactam, amoxicillin-clavulanate, and piperacillin-tazobactam for pdb-ujmr-wohvsjckl producing enterococci.(CLSI 2018)Antimicrobial Susceptibility Comment CB Reference [...] organisms seen Reference Range: .Performed at: - [facility] [id number] Director: Chele Santoyo PhD, Phone: [phone] Performed By: #### L 3410.9998 ####[facility] [address] [place], [address] OV 12-05-2024 CN Office Visit (FAMPWS ) -------- GELY FULLER ([id number]) 1950 F Date Time Provider Department 12/05/24 9:00 AM RISHI VASQUEZ FAMPWS During your visit today, we recorded the following information about you: Temperature Pulse Respiration Blood pressure 97 degrees 60/minute 16/minute 110/60 Weight 72 kg Rishi Vasquez, DO 12/05/2024 11:10 AM Signed Patient presents with: 6 Month Exam HPI: Gely Lawrence Jonny is a 74 year old female who presents to the office today for review of health conditions. Concerns today: PAD, vascular disease, no recent new ulcerations or skin sores Sciatica, b/l thigh pain, significant, worse with prolonged standing or walking. Seeing Dr. Gastelum for pain mgmt at [facility] and she is now taking Lyrica instead of gabapentin- does cause fatigue and some foggy brain symptoms. Helps pain minimally. Likely to have upcoming lumbar MRI. Had recent pelvic/hip MRI which shows OA changes Knows needs to get more exercise but struggles with this with her arthritis and sciatica pain Ms. Fuller has past history of diabetes. Since our [...] was within the past 12 months Ms. Fuller reports history of hyperlipidemia. Current therapy includes simvastatin (Zocor) 40 mg. Denies side effects of muscle weakness or achiness. Her most recent lipid panels are reviewed. Cholesterol, Total (mg/dL) Date Value 12/01/2024 138 11/28/2021 190 HDL Cholesterol (mg/dL) Date Value 12/01/2024 44 11/28/2021 55 LDL Cholesterol (mg/dL) Date Value 12/01/2024 64 11/28/2021 95 Triglyceride (mg/dL) Date Value 12/01/2024 151 11/28/2021 199 Ms. 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 Ortiz [facility]-03[facility]25/2020 left mild, right moderate Multiple thyroid nodules last US 01/2015 Peripheral artery disease (HCC) due to Diabetes mellitus, Dr. Kwaku Moscoso Rotator cuff syndrome of left shoulder Dr. Regi Thompson [facility] PAST SURGICAL HISTORY Procedure Laterality Date AMPUTATION [...] ROTATOR CUFF REPAIR 03/11/14 Dr. Regi Thompson [facility] SLCTV CATHJ EA 1ST ORD ABDL PEL/LXTR ART BRNCH 06-07-16 APLL Social History Tobacco Use Smoking status: Former Current packs/day: 0.00 Average packs/day: 0.5 packs/day for 45.0 years (22.5 ttl pk-yrs) Types: Cigarettes Start date: 12/20/1967 Quit date: 12/20/2012 Years since quittin.9 Smokeless tobacco: Never Substance Use Topics Alcohol use: No Drug use: No FAMILY H (more content not included)... Normal [facility] 25([place])D3 [facility] 25-hydroxyvitamin D3 [Mass/Vol] 62.6 ng/mL Normal 31.0-80.0 [facility] Comment on above: Order Comment: Speci men Type: BLOOD SPECIMENOrdering Facility: [facility] Address: [address] [place] [address] Result Comment: Clas sification of 25 [place] Vitamin D status: Deficiency/Insufficiency: < or = 30 ng/ml. Sufficiency/Optimal Levels: 31-80 ng/mL Toxicity: > 100 ng/mL. Test performed by chemiluminescent immunoassay. Performed By: #### 1 989-3 ####[facility] [id number] [place] [address] [place] CBC panel Auto (Bld)on 12-01 Erythrocyte distribution width (RBC) [Ratio] 12.5 % Normal 11.5-15.0 [facility] Comment on above: Order Comment: Elizabethi matheus Type: BLOOD SPECIMENOrdering Facility: [facility] Address: [address] [place] [address] Performed By: #### 5 8410-2 ####[facility] LABCLIA [id number] [place] [address] [place] Hematocrit (Bld) [Volume fraction] 37.8 % Normal 36.0-46.0 [facility] Comment on above: Order Comment: Elizabethi matheus Type: BLOOD SPECIMENOrdering Facility: [facility] Address: [address] [place] [address] Performed By: #### 5 8410-2 ####[facility] LABIA [id number] [place] [address] [place] Hemoglobin (Bld) [Mass/Vol] 12.1 g/dL Normal 11.5-15.5 [facility] Comment on above: Order Comment: Speci men Type: BLOOD SPECIMENOrdering Facility: [facility] Address: [address] [place] [address] Performed By: #### 5 8410-2 ####[facility] LABIA [id number] [place] [address] [place] MCH (RBC) [Entitic mass] 31.2 pg Normal 26.0-34.0 [facility] Comment on above: Order Comment: Speci men Type: BLOOD SPECIMENOrdering Facility: [facility] Address: [address] [place] [address] Performed By: #### 5 8410-2 ####[facility] [id number] [place] [address] [place] MCHC (RBC) [Mass/Vol] 32.0 g/dL Normal 30.5-36.0 [facility] Comment on above: Order Comment: Speci men Type: BLOOD SPECIMENOrdering Facility: [facility] Address: [address] [place] [address] Performed By: #### 5 8410-2 ####[facility] [id number] [place] [address] [place] MCV (RBC) [Entitic vol] 97.4 fL Normal 80.0-100.0 [facility] Comment on above: Order Comment: Speci men Type: BLOOD SPECIMENOrdering Facility: [facility] Address: [address] [place] [address] Performed By: #### 5 8410-2 ####[facility] [id number] [place] [address] [place] Nucleated RBC (Bld) [#/Vol] 10*3/uL Normal <0.01 [facility] Comment on above: Order Comment: Speci men Type: BLOOD SPECIMENOrdering Facility: [facility] Address: [address] [place] [address] Performed By: #### 5 8410-2 ####[facility] LABCLIA [id number] [place] [address] [place] Platelet mean volume (Bld) [Entitic vol] 12.3 fL Normal 9.0-12.7 [facility] Comment on above: Order Comment: Speci men Type: BLOOD SPECIMENOrdering Facility: [facility] Address: [address] [place] [address] Performed By: #### 5 8410-2 ####[facility] LABIA [id number] [place] [address] [place] Platelets (Bld) [#/Vol] 160 10*3/uL Normal 150-400 [facility] Comment on above: Order Comment: Speci men Type: BLOOD SPECIMENOrdering Facility: [facility] Address: [address] [place] [address] Performed By: #### 5 8410-2 ####[facility] LABIA [id number] [place] [address] [place] RBC (Bld) [#/Vol] 3.88 10*6/uL Low 3.90-5.20 [facility] Comment on above: Order Comment: Speci men Type: BLOOD SPECIMENOrdering Facility: [facility] Address: [address] [place] [address] Performed By: #### 5 8410-2 ####[facility] LABCLIA [id number] [place] [address] [place] WBC (Bld) [#/Vol] 5.99 10*3/uL Normal 3.70-11.00 [facility] Comment on above: Order Comment: Speci men Type: BLOOD SPECIMENOrdering Facility: [facility] Address: [address] [place] [address] Performed By: #### 5 8410-2 ####[facility] LABIA [id number] [place] [address] [place] Comprehensive metabolic 2000 panelon 12-01-2024 Albumin [Mass/Vol] 4.0 g/dL Normal 3.9-4.9 [facility] Comment on above: Order Comment: Speci men Type: BLOOD SPECIMENOrdering Facility: [facility] Address: [address] [place] [address] Performed By: #### 2 4331-1, 3016-3, 45552-4, 3024-7 ####[facility] LABIA [id number] [place] [address] [place] ALP [Catalytic activity/Vol] 67 U/L Normal 34-123 [facility] Comment on above: Order Comment: Speci men Type: BLOOD SPECIMENOrdering Facility: [facility] Address: [address] [place] [address] Performed By: #### 2 4331-1, 3016-3, 96970-1, 3024-7 ####[facility] LABIA [id number] [place] [address] [place] ALT [Catalytic activity/Vol] 19 U/L Normal 7-38 [facility] Comment on above: Order Comment: Speci men Type: BLOOD SPECIMENOrdering Facility: [facility] Address: [address] [place] [address] Performed By: #### 2 4331-1, 3016-3, 63823-1, 3024-7 ####[facility] LABIA [id number] [place] [id number] [place] Anion gap [Moles/Vol] 16 mmol/L High 8-15 [facility] Comment on above: Order Comment: Speci men Type: BLOOD SPECIMENOrdering Facility: [facility] Address: [address] [place], [place] [address] Performed By: #### 2 4331-1, 3016-3, 32390-3, 302-7 ####[facility] LABCLIA [id number] [place] [address] [place] AST [Catalytic activity/Vol] 31 U/L Normal 13-35 [facility] Comment on above: Order Comment: Speci men Type: BLOOD SPECIMENOrdering Facility: [facility] Address: [address] [place] [address] Performed By: #### 2 4331-1, 3016-3, 34879-8, 7 ####[facility] LABCLIA [id number] [place] [address] [place] Bilirubin [Mass/Vol] 0.4 mg/dL Normal 0.2-1.3 [facility] Comment on above: Order Comment: Speci men Type: BLOOD SPECIMENOrdering Facility: [facility] Address: [address] [place] [address] Performed By: #### 2 4331-1, 3016-3, 84350-5, 7 ####[facility] LABCLIA [id number] [place] [address] [place] Calcium [Mass/Vol] 10.0 mg/dL Normal 8.5-10.2 [facility] Comment on above: Order Comment: Speci men Type: BLOOD SPECIMENOrdering Facility: [facility] Address: [address] [place], [place] [address] Performed By: #### 2 4331-1, 3016-3, 50155-1, 302-7 ####[facility] LABCLIA [id number] [place] [address] [place] Chloride [Moles/Vol] 108 mmol/L High 98-107 [facility] Comment on above: Order Comment: Speci men Type: BLOOD SPECIMENOrdering Facility: [facility] Address: [facility] [place], [place] [address] Performed By: #### 2 4331-1, 3016-3, 03503-4, 302-7 ####[facility] LABIA [id number] [address] [address] [place] CO2 [Moles/Vol] 20 mmol/L Low 22-30 [facility] Comment on above: Order Comment: Speci men Type: BLOOD SPECIMENOrdering Facility: [facility] Address: [address] [place] [address] Performed By: #### 2 4331-1, 3016-3, 56540-0, 7 ####[facility] LABIA [id number] [place] [address] [place] Creatinine [Mass/Vol] 1.11 mg/dL High 0.58-0.96 [facility] Comment on above: Order Comment: Speci men Type: BLOOD SPECIMENOrdering Facility: [facility] Address: [address] [place] [address] Performed By: #### 2 4331-1, 6-3, 32664-4, 7 ####[facility] LABIA [id number] [place] [address] [place] Creatinine and Glomerular filtration rate.predicted panel (S/P/Bld) 53 mL/min/1.73m??? Low >=60 [facility] Comment on above: Order Comment: Speci men Type: BLOOD SPECIMENOrdering Facility: [facility] Address: [address] [place] [address] Result Comment: Elena mated Glomerular Filtration Rate [...] reflect actual GFR. Performed By: #### 2 4331-1, 3016-3, 22397-6, 302-7 ####[facility] LABCLIA [id number] [address] [address] [place] Glucose [Mass/Vol] 79 mg/dL Normal 74-99 [facility] Comment on above: Order Comment: Speci men Type: BLOOD SPECIMENOrdering Facility: [facility] Address: [address] [place] [address] Result Comment: The [place] Diabetes Association (ADA) provides guidance for cutoff [...] Standards of Medical Care in Diabetes 2016, [place] Diabetes Association. Diabetes Care. 2016.39(Suppl 1). Performed By: #### 2 4331-1, 6-3, 70558-4, 7 ####[facility] LABCLIA [id number] [place] [address] [place] Potassium [Moles/Vol] 4.3 mmol/L Normal 3.7-5.1 [facility] Comment on above: Order Comment: Speci men Type: BLOOD SPECIMENOrdering Facility: [facility] Address: [address] [place] [address] Performed By: #### 2 4331-1, 3016-3, 35712-3, 3023-7 ####[facility] LABCLIA [id number] [place] [address] [place] Protein [Mass/Vol] 6.6 g/dL Normal 6.3-8.0 [facility] Comment on above: Order Comment: Speci men Type: BLOOD SPECIMENOrdering Facility: [facility] Address: [address] [place] [address] Performed By: #### 2 4331-1, 6-3, 58421-5, 4-7 ####[facility] LABCLIA [id number] [address] [address] [place] Sodium [Moles/Vol] 144 mmol/L Normal 136-144 [facility] Comment on above: Order Comment: Speci men Type: BLOOD SPECIMENOrdering Facility: [facility] Address: [address] [place] [address] Performed By: #### 2 4331-1, 6-3, 59003-8, 3023-7 ####[facility] LABCLIA [id number] [address] [address] [place] Urea nitrogen [Mass/Vol] 51 mg/dL High 7-21 [facility] Comment on above: Order Comment: Speci men Type: BLOOD SPECIMENOrdering Facility: [facility] Address: [address] [place] [address] Performed By: #### 2 4331-1, 3015-3, 62726-6, 3024-7 ####[facility] LABIA [id number] [address] [address] [place] HbA1c (Bld)on 12-01-2024 Average glucose Estimated from glycated hemoglobin (Bld) [Mass/Vol] 126 mg/dL Normal [facility] Comment on above: Order Comment: Speci men Type: BLOOD SPECIMENOrdering Facility: [facility] Address: [address] [place] [address] Result Comment: eAG: (Estimated average glucose) is a calculated value from HgbA1c and is sales representative advertising of the average blood glucose level in the last 2-3 month period. Performed By: #### 5 5454-3 ####[facility] LABCLIA [id number] [address] [address] [place] HbA1c (Bld) [Mass fraction] 6.0 % High 4.3-5.6 [facility] Comment on above: Order Comment: Speci men Type: BLOOD SPECIMENOrdering Facility: [facility] Address: [address] [place] [address] Result Comment: Am[place] Diabetes Association guidelines indicate that patients with HgbA1c in the range 5.7-6.4% are at increased risk for development of diabetes, and intervention by lifestyle modification may be beneficial. HgbA1c greater or equal to 6.5% is considered diagnostic of diabetes. Performed By: #### 5 5454-3 ####[facility] LABCLIA [id number] [place] [address] [place] Lipid 1996 panelon 5 Cholesterol [Mass/Vol] 138 mg/dL Normal <200 [facility] Comment on above: Order Comment: Elizabethi men Type: BLOOD SPECIMENOrdering Facility: [facility] Address: [address] [place] [address] Result Comment: <200 mg/dL, Desirable 200-239 mg/dL, Borderline high >239 mg/dL, High Performed By: #### 2 4331-1, 3016-3, 78241-1, 7 ####[facility] LABCLIA [id number] [place] [address] [place] Cholesterol in HDL [Mass/Vol] 44 mg/dL Normal >39 [facility] Comment on above: Order Comment: Speci men Type: BLOOD SPECIMENOrdering Facility: [facility] Address: [address] [place] [address] Result Comment: 40-5 9 mg/dL, Acceptable >59 mg/dL, High: Negative risk factor for coronary heart disease <40 mg/dL, Low: Positive risk factor for coronary heart disease Performed By: #### 2 4331-1, 3016-3, 05684-4, 302-7 ####[facility] LABCLIA [id number] [address] [address] [place] Cholesterol in LDL [Mass/Vol] 64 mg/dL Normal <100 [facility] Comment on above: Order Comment: Elizabethi men Type: BLOOD SPECIMENOrdering Facility: [facility] Address: [address] [place] [address] Result Comment: <100 mg/dL, Optimal 100-129 mg/dL, Near optimal/above optimal 130-159 mg/dL, Borderline high 160-189 mg/dL, High >189 mg/dL, Very high Secondary prevention optimal LDL Cholesterol levels are recommended to be < 70 mg/dL Performed By: #### 2 4331-1, 3016-3, 62480-7, 302-7 ####[facility] LABCLIA [id number] [place] [address] [place] Cholesterol in LDL/Cholesterol in HDL [Mass ratio] 1.45 {ratio} Normal <2.54 [facility] Comment on above: Order Comment: Johana jarvis Type: BLOOD SPECIMENOrdering Facility: [facility] Address: [address] [place] [address] Result Comment: Refe rence: 1. National Cholesterol Education Program ATP III Guideline At-A-Glance Quick Desk Reference: National Heart, Lung, and Blood [place]. National Institutes of Health. 2001: NIH Publication No. 01-3305. 2. An International Atherosclerosis Society position paper: global recommendations for the management of dyslipidemia: executive summary, Atherosclerosis. 2014: 232(2):410-413. Performed By: #### 2 4331-1, 3016-3, 26445-5, 3023-7 ####[facility] LABCLIA [id number] [place] [id number] [place] Cholesterol in VLDL [Mass/Vol] 30 mg/dL High <30 [facility] Comment on above: Order Comment: Johana matheus Type: BLOOD SPECIMENOrdering Facility: [facility] Address: [address] [place] [address] Performed By: #### 2 4331-1, 3016-3, 19268-3, 3024-7 ####[facility] LABCLIA [id number] [place] [address] [place] Cholesterol non HDL [Mass/Vol] 94 mg/dL Normal <130 [facility] Comment on above: Order Comment: Speci men Type: BLOOD SPECIMENOrdering Facility: [facility] Address: [address] [place] [address] Result Comment: <130 mg/dL, Optimal 130-159 mg/dL, Near optimal/above optimal 160-189 mg/dL, Borderline high 190-219 mg/dL, High >219 mg/dL, Very high Secondary prevention optimal non HDL Cholesterol levels are recommended to be <100 mg/dL Performed By: #### 2 4331-1, 3016-3, 15562-1, 3024-7 ####[facility] LABCLIA [id number] [place] [address] [place] Cholesterol.total/Chol esterol in HDL [Mass ratio] 3.14 {ratio} Normal <5.10 [facility] Comment on above: Order Comment: Speci men Type: BLOOD SPECIMENOrdering Facility: [facility] Address: [address] [place] [address] Performed By: #### 2 4331-1, 3016-3, 28693-6, 3024-7 ####[facility] LABCLIA [id number] [place] [address] [place] FASTING TIME 14 hrs Normal [facility] Comment on above: Order Comment: Speci men Type: BLOOD SPECIMENOrdering Facility: [facility] Address: [address] [place] [address] Performed By: #### 2 4331-1, 3016-3, 61889-8, 3024-7 ####[facility] LABCLIA [id number] [place] [address] [place] Triglyceride [Mass/Vol] 151 mg/dL High <150 [facility] Comment on above: Order Comment: Speci men Type: BLOOD SPECIMENOrdering Facility: [facility] Address: [address] [place] [address] Result Comment: <150 mg/dL, Normal 150-199 mg/dL, Borderline high 200-499 mg/dL, High >499 mg/dL, Very high Performed By: #### 2 4331-1, 3016-3, 74407-5, 3024-7 ####[facility] LABCLIA [id number] [place] [address] [place] T4 Free SerPl-mCncon 025 Free T4 [Mass/Vol] 2.0 ng/dL High 0.9-1.7 [facility] Comment on above: Order Comment: Speci men Type: BLOOD SPECIMENOrdering Facility: [facility] Address: [address] [place] [address] Performed By: #### 2 4331-1, 3016-3, 20222-4, 7 ####[facility] LABCLIA [id number] [place] [address] [place] TSH SerPl-aCncon 12-01-2024 TSH Qn 0.005 m[IU]/L Low 0.270-4.200 [facility] Comment on above: Order Comment: Speci men Type: BLOOD SPECIMENOrdering Facility: [facility] Address: [address] [place] [address] Performed By: #### 2 4331-1, 3016-3, 31627-2, 3023-7 ####[facility] LABCLIA [id number] [place] [address] [place] Vit B12 SerPl-mCncon 025 Cobalamin (Vitamin B12) [Mass/Vol] 1268 pg/mL High 232-1245 [facility] Comment on above: Order Comment: Speci men Type: BLOOD SPECIMENOrdering Facility: [facility] Address: [address] [place] [address] Performed By: #### 2 132-9 ####[facility] LABCLIA [id number] [place] [address] [place] [facility] GELY FULLER ([id number]) 1950 F Date Time Provider Department 09/10/24 RISHI VASQUEZ [facility] During your visit today, we recorded the following information about you: Clemencia Chapman RN 09/10/2024 2:59 PM Signed Patient calls to let provider know that she was to see Dr. Gastelum with pain management today and he was recommending changing gabapentin to Lyrica and considering Cymbalta or tramadol. Patient doesn't want him to prescribe anything without first checking with provider and what provider would recommend for her mid left buttocks pain. Patient reports that Dr. Gastelum might also reach out to provider. Requests call back at [phone] with provider response. GORGE oB Jordan L, DO 09/13/2024 12:25 PM Signed Okay with these considerations by specialist DO Allan Ernst Rilee, MA 09/15/2024 10:30 AM Signed Call to pt and notified her of response below from Provider. Pt verbalized understanding. Silvestre Martinez MA Allergies As of Date: 09/10/2024 Noted Allergy Reaction SULFA (SULFONAMIDE ANTIBIOTICS) 01/13/2013 16 - Unknown Comments: childhood Date Reviewed: 06/04/2024 Reviewed by: Annmarie Adhikari LPN - Fully Assessed Reason for Visit: Patient Question [3577] Prescriptions as of 09/15/2024 - gabapentin (NEURONTIN) [...] 1 tablet by mouth once daily. - Fitawhnl-Gcsc-Tta-Folic Acid 18-0.4 mg tab Take 1 tablet [...] [L72.3, L08.9] 02/26/2019 Coronary artery disease involving [place] heart *05/28/2019 Abnormal urine odor [R82.90] 05/28/2019 [...] Encounter Status:Closed by SILVESTRE MARTINEZ on 09/15/24 Normal [facility] Gabriel 08-18-2024 CNPN Telephone (FAMPWS) -------- GELY FULLER ([id number]) 1950 F Date Time Provider Department 08/18/24 RISHI VASQUEZ During your visit today, we recorded the following information about you: Silvestre Martinez MA 08/18/2024 8:48 AM Signed Pt wrote into the office via Netscape on 08/16/24 with questions regarding medications. Please [...] childhood Date Reviewed: 06/04/2024 Reviewed by: Annmarie Adhikari LPN - Fully Assessed Reason for Visit: Patient Question [8768] Cmt: Fish oil - [place] 3 Prescriptions as of 08/19/2024 - gabapentin [...] 1 tablet by mouth once daily. - Gehdxmbr-Rggs-Vwa-Folic Acid 18-0.4 mg tab Take 1 tablet [...] [L72.3, L08.9] 02/26/2019 Coronary artery disease involving [place] heart *05/28/2019 Abnormal urine odor [R82.90] 05/28/2019 [...] Encounter Status:Closed by LEATHA LONG on 08/19/24 [facility] GELY FULLER ([id number]) 1950 F Date Time Provider Department 08/08/24 [facility] During your visit today, we recorded [...] Martinez MA Pt message: DR. VASQUEZ, DR. GASTELUM WANTS ME TO HAVE A PAIN INJECTION [...] childhood Date Reviewed: 06/04/2024 Reviewed by: Annmarie Adhikari LPN - Fully Assessed Reason for Visit: [...] 1 tablet by mouth once daily. - Zqgzgphj-Qmwr-Dug-Folic Acid 18-0.4 mg tab Take 1 tablet [...] [L72.3, L08.9] 02/26/2019 Coronary artery disease involving [place] heart *05/28/2019 Abnormal urine odor [R82.90] 05/28/2019 Stage 3 chronic kidney disease (HCC) [N18.30] 12/03/2019 Fatigue [R53.83] more content not included)... Normal [facility] Pelvis (Routine)on Pelvis (Routine) Normal [facility] XR Lumbar spine 3 Viewson [...] calcifications. Mild levoscoliosis DIVISION [facility]IOLOGY [facility]10[facility] * * *Final Report* [...] DESCRIBED. PROGRESSION PRIOR STUDY. NO ACUTE ABNORMALITY Doughnut Maker: SANDRA Transcribe Date/Time: Dec 10 2023 1:03P Dictated by : CHASE SUE MD This examination was interpreted and the report reviewed and electronically signed by: CHASE SUE MD on Dec 10 2023 1:17PM EST [facility] Radiology Study observation (narrative) [facility] XR Lumbar spine 3 ViewsOrder ed By: Ccf Provider on 12-10-2023 [facility] Anaerobic cultureOrdered By: Rishi Vasquez on 08-16-2023 Bacteria identified Anaer cx Nom (Unsp spec) No anaerobic bacteria isolated. [facility] Bacteria identified Cx Nom ( Wound)Ordered By: Rishi Vasquez on 08-16-2023 Wound Culture Meth. resistant Stap h. aureus [facility] Gram stain for investigation of transfusion reactionOrdered By: Rishi Vasquez on 08-16-2023 Microscopic observation Gram stain Nom (Unsp spec) [facility] Anaerobic cultureOrdered By: Rishi Vasquez on 07-27-2023 Bacteria identified Anaer cx Nom (Unsp spec) No anaerobic bacteria isolated. [facility] Bacteria identified Cx Nom ( Wound)Ordered By: Rishi Vasquez on 07-27-2023 Wound Culture Meth. resistant Stap h. aureus [facility] Gram stain for investigation of transfusion reactionOrdered By: Rishi Vasquez on 07-27-2023 Microscopic observation Gram stain Nom (Unsp spec) [facility] Anaerobic cultureOrdered By: Rishi Vasquez on 07-26-2023 Bacteria identified Anaer cx Nom (Unsp spec) No anaerobic bacteria isolated. [facility] Bacteria identified Cx Nom ( Wound)Ordered By: Rishi Vasquez on 07-26-2023 Wound Culture Meth. resistant Stap h. aureus [facility] Gram stain for investigation of transfusion reactionOrdered By: Rishi Vasquez on 07-26-2023 Microscopic observation Gram stain Nom (Unsp spec) [facility] ALEJANDRO DIAG W BEN RIGHTon 06-20 [facility] US BREAST LTD RIGHTon 2022 [facility] UA DIP, URINE (POC)on 2022 BILIRUBIN UA (POCT) Negative Negative [facility] CLARITY UA (POCT) Clear [facility] COLOR UA (POCT) Yellow [facility] GLUCOSE UA (POCT) Negative Negative mg/dL [facility] HEMOGLOBIN/BLOOD UA (POCT) Trace-intact Abnormal Negative [facility] KETONE UA (POCT) Negative Negative mg/dL [facility] LEUKOCYTES UA (POCT) Large Abnormal Negative [facility] NITRITE UA (POCT) Positive Abnormal Negative [facility] PH UA (POCT) 7.0 4.5 - 8.0 [facility] Protein Ql (U) 30 mg/dL Abnormal Negative mg/dL [facility] SPECIFIC GRAVITY UA (POCT) 1.015 1.005 - 1.030 [facility] UROBILINOGEN UA (POCT) 0.2 E.U./dL Jacki l E.U./dL [facility] ALEJANDRO SCREENINGon 05-29-2023 [facility] No Panel Informationon 12-29 [facility] US THYROID/PARATHYROIDon [facility] UA DIP, URINE (POC)on 2021 BILIRUBIN UA (POCT) Negative Negative [facility] CLARITY UA (POCT) Cloudy [facility] COLOR UA (POCT) Yellow [facility] GLUCOSE UA (POCT) 100 mg/dL Abnormal Negative mg/dL [facility] HEMOGLOBIN/BLOOD UA (POCT) Small Abnormal Negative [facility] KETONE UA (POCT) Negative Negative mg/dL [facility] LEUKOCYTES UA (POCT) Moderate Abnormal Negative [facility] NITRITE UA (POCT) Negative Negative [facility] PH UA (POCT) 7.0 4.5 - 8.0 [facility] Protein Ql (U) 100 mg/dL Abnormal Negative mg/dL [facility] SPECIFIC GRAVITY UA (POCT) 1.020 1.005 - 1.030 [facility] UROBILINOGEN UA (POCT) 0.2 E.U./dL Jacki l E.U./dL [facility] No Panel Informationon 08-15 Radiology Study observation (narrative) [facility] XR Sternum Lateral and right anterior obliqueon 08-15-2022 IMPRESSION: No acute osseous abnormality Doughnut Maker: PSCB Transcribe Date/Time: Aug 15 2022 1:22P Dictated by : MAURICIO REYNOLDS MD This examination was interpreted and the report reviewed and electronically signed by: MAURICIO REYNOLDS MD on Aug 15 2022 1:23PM [facility] DIVISION OF RADIOLOGY * * *Final [...] destructive osseous lesion. DIVISION OF RADIOLOGY Provider, [facility] - 08/15/2022 * * *Final Report* [...] lesion. IMPRESSION IMPRESSION: No acute osseous abnormality Doughnut Maker: [facility] Transcribe Date/Time: Aug 15 2022 1:22P Dictated by : MAURICIO REYNOLDS MD This examination was interpreted and the report reviewed and electronically signed by: MAURICIO REYNOLDS MD on Aug 15 2022 1:23PM EST [facility] XR Sternum Lateral and right anterior obliqueOrdered By: Ccf Provider on 08-15-2022 [facility] XR Wrist - right 4 Viewson 0 08-15-2022 IMPRESSION: No acute fracture. Degenerative disease of the right wrist. Doughnut Maker: SANDRA Transcribe Date/Time: Aug 15 2022 1:20P Dictated by : MAURICIO REYNOLDS MD This examination was interpreted and the report reviewed and electronically signed by: MAURICIO REYNOLDS MD on Aug 15 2022 1:21PM [facility] DIVISION OF RADIOLOGY * * *Final [...] calcifications are noted. DIVISION OF RADIOLOGY [facility] * * *Final [...] fracture. Degenerative disease of the right wrist. Doughnut Maker: SANDRA Transcribe Date/Time: Aug 15 2022 1:20P Dictated by : MAURICIO REYNOLDS MD This examination was interpreted and the report reviewed and electronically signed by: MAURICIO REYNOLDS MD on Aug 15 2022 1:21PM EST [facility] XR SHOULDER GENERAL 3V OR MO RE AP/TRUE AP/OTHER RIGHTon 06-17-2022 [facility] XR Shoulder - right 3 Viewso n 06-17-2022 IMPRESSION: 1. No acute fracture or dislocation. 2. Radiographic changes which can be seen in association with rotator cuff tendonopathy. Doughnut Maker: PSCB Transcribe Date/Time: Jun 17 2022 9:43A [...] relevant examinations available for comparison within the [facility] Imaging Archives. RESULT: 3 views of [...] is clear. [id number] SE_DIVISION OF RADIOLOGY Provider, [facility] - 06/17/2022 * * *Final Report* [...] relevant examinations available for comparison within the [facility] Imaging Archives. RESULT: 3 views of [...] seen in association with rotator cuff tendonopathy. Doughnut Maker: [facility] Transcribe Date/Time: Jun 17 2022 9:43A Dictated by : JA GOMEZ MD This examination was interpreted and the report reviewed and electronically signed by: JA GOMEZ MD on Jun 17 2022 9:45AM EST [facility] Radiology Study observation (narrative) [facility] XR Shoulder - right 3 ViewsO rdered By: Ccf Provider on 06-17-2022 [facility] ALEJANDRO SCREENINGon 06-05-2022 [facility] HEMOGLOBIN A1C (POC)on 05-31 HbA1c (Bld) [Mass fraction] 6.2 % 4.2 - 5.6 % [facility] Renal function 2000 panelon 03-07-2022 Albumin [Mass/Vol] 4.1 g/dL 3.9 - 4.9 g/dL [facility] Anion gap [Moles/Vol] 14 mmol/L 9 - 18 mmol/L [facility] Calcium [Mass/Vol] 9.9 mg/dL 8.5 - 10. 2 mg/dL [facility] Chloride [Moles/Vol] 105 mmol/L 97 - 10 5 mmol/L [facility] CO2 [Moles/Vol] 23 mmol/L 22 - 30 mmol/L [facility] Creatinine [Mass/Vol] 1.29 mg/dL High 0.58 - 0.96 mg/dL [facility] Estimated Glomerular Filtration Rate 45 mL/min/1.73m Low >=60 mL/min/1.73 m [facility] Glucose [Mass/Vol] 167 mg/dL High 74 - 99 mg/dL [facility] Phosphate [Mass/Vol] 4.0 mg/dL 2.7 - 4 .8 mg/dL [facility] Potassium [Moles/Vol] 4.1 mmol/L 3.7 - 5.1 mmol/L [facility] Sodium [Moles/Vol] 142 mmol/L 136 - 144 mmol/L [facility] Urea nitrogen [Mass/Vol] 42 mg/dL High 7 - 21 mg/dL [facility] Glucose Glucometer (BldC) [M ass/Vol]on 01-20-2022 Glucose [Mass/Vol] 163 mg/dL 74-106 [facility] Work Phone: Comment on above: MANAGEMENT OF PATIEN T CARE PER NURSING PROTOCOL Office Visit: Thyroid Nodule son 08-30-2017 Dietary management education, guidance, and counseling (procedure) yes Invalid Interpretation Code [facility] [employer] Work Phone: Documentation of current medications (procedure) Done Invalid Interpretation Code [facility] Work Phone: Fall risk assessment No Invalid Interpretation Code [facility] Work Phone: Tobacco smoking status NHIS Never Invalid Interpretation Code [facility] [employer] Work Phone: Tobacco use HS Former smoker Invalid Interpretation Code [facility] Work Phone: Office Visiton 06-11-2017 Dietary management education, guidance, and counseling (procedure) yes Invalid Interpretation Code [facility] Work Phone: [phone] Documentation of current medications (procedure) Done Invalid Interpretation Code [facility] Work Phone: [phone] Protein mass conc Done [facility] Work Phone: [phone] 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-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 Left ventricular Ejection fraction 60 % Invalid Interpretation Code [facility] Work Phone: [phone] 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 phalanxon 05-02-2017 Dietary management education, guidance, and counseling (procedure) yes Invalid Interpretation Code [facility] Work Phone: [phone] Documentation of current medications (procedure) Done Invalid Interpretation Code [facility] Work Phone: [phone] Fall risk assessment No Invalid Interpretation Code [facility] Work Phone: Protein mass conc Done [facility] Work Phone: Tobacco smoking status NHIS Never Invalid Interpretation Code [facility] Work Phone: Tobacco smoking status NHIS Former smoker [facility] Work Phone: Tobacco use [facility] Former smoker Invalid Interpretation Code [facility] Work Phone: [phone] Office Visiton 04-23-2017 Protein mass conc Done [facility] Work Phone: Lab Report: CRPon 02-21-2017 CRP [Mass/Vol] mg/L Invalid Interpretation Code 0.0-3.0 [facility] Work Phone: Lab Report: Erythrocyte Sed Rateon 02-21-2017 ESR (Bld) [Velocity] 40 mm/h High 0-[address] [facility] Work Phone: Lab Report: Thyroid Peroxida se ABon 02-08-2017 TPO Ab JOSEPH Qn 13 Invalid Interpretation Code 0-34 [facility] Work Phone: Lab Report: Free T3on 2016 Free T3 [Mass/Vol] 3.5 pg/mL Invalid Interpretation Code 2.18-3.98 [facility] Work Phone: Lab Report: T4 Free Directon 02-07-2017 Free T4 [Mass/Vol] 1.35 ng/dL Invalid Interpretation Code 0.76-1.46 [facility] Work Phone: Lab Report: Thyroid Stim Hor oh (TSH)on 02-07-2017 TSH Qn < 0.01 uIU/mL Low 0.358-3.74 [facility] Work Phone: Office Visit: Thyroid enaa hunter 02-06-2017 Adolescent depression screening assessment Adolescent depression screening assessment Invalid Interpretation Code [facility] Work Phone: [phone] Adult depression screening assessment Adolescent depression screening assessment Invalid Interpretation Code [facility] Work Phone: Fall risk assessment No [facility] Work Phone: Tobacco smoking status NHIS Never [facility] Work Phone: Tobacco smoking status NHIS Former smoker [facility] Work Phone: Microbiology: Culture, Wound on 01-28-2017 CUW Trimethoprim/Sulfame tho $ <=20 S Invalid Interpretation Code [facility] Work Phone: wound culture Trimethoprim/Sulfame tho $ <=20 S Invalid Interpretation Code [facility] Work Phone: [phone] 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 Cholesterol 164 mg/dL Invalid Interpretation Code [facility] Work Phone: [phone] Cholesterol to HDL Ratio 2.98 {ratio} Invalid Interpretation Code [facility] Work Phone: [phone] HDL Cholesterol 55 mg/dL Low [facility] Work Phone: [phone] LDL Cholesterol 67 mg/dL Invalid Interpretation Code [facility] Work Phone: [phone] LDL/HDL ratio, serum 1.22 Invalid Interpretation Code [facility] Work Phone: [phone] Triglyceride 210 mg/dL High [facility] Work Phone: [phone] very low density lipoproteins 42 mg/dL High [facility] Work Phone: [phone] Lab Report: Basic Metabolic Profile (BMP)on 01-12-2017 Anion gap 8 mmol/L Invalid Interpretation Code 5-15 [facility] Work Phone: [phone] Anion gap [Moles/Vol] 8 mmol/L 5-15 [facility] Work Phone: Calcium [Mass/Vol] 9.0 mg/dL Invalid Interpretation Code 8.5-10.1 [facility] Work Phone: [phone] Chloride [Moles/Vol] 105 mmol/L Invalid Interpretation Code 98-107 [facility] Work Phone: CO2 26.0 mmol/L Invalid Interpretation Code 21.0-32.0 [facility] Work Phone: [phone] CO2 (BldV) [Partial pressure] 26.0 mmol/L 21.0-32.0 [facility] Work Phone: [phone] Creatinine [Mass/Vol] 1.63 mg/dL High 0.55-1.02 [facility] Work Phone: [phone] eGFR (non-black) 41 mL/min/{1.73_m2} Low >60 [facility] Work Phone: [phone] EST GFR - AA 41 mL/min Low >60 [facility] Work Phone: [phone] GFR/1.73 sq M predicted among non-blacks MDRD (S/P/Bld) [Vol rate/Area] 34 mL/min/{1.73_m2} Low >60 [facility] Work Phone: [phone] Glucose 210 mg/dL High 70-110 [facility] Work Phone: [phone] Glucose [Mass/Vol] 210 mg/dL High 70-110 [facility] Work Phone: [phone] Potassium [Moles/Vol] 4.6 mmol/L Invalid Interpretation Code 3.5-5.1 [facility] Work Phone: Sodium [Moles/Vol] 139 mmol/L Invalid Interpretation Code 136-145 [facility] Work Phone: Urea nitrogen [Mass/Vol] 53 mg/dL High 7-18 [facility] Work Phone: Urea nitrogen/Creatinine [Mass ratio] 32.5 RATIO High 10-20 [facility] Work Phone: Replaced Document: (P) CBC W /Diff, Automatedon 01-12-2017 Absolute Neut 3.7 X10 3/UL Invalid Interpretation Code 2.0-7.7 [facility] Work Phone: Basophils/100 leukocytes 1.2 % High 0-1 [facility] Work Phone: Basophils/100 WBC (Bld) 1.2 % High 0-1 [facility] Work Phone: Eosinophils/100 leukocytes 8.4 % High 0-5 [facility] Work Phone: Eosinophils/100 WBC (Bld) 8.4 % High 0-5 [facility] Work Phone: Erythrocyte distribution width (RBC) [Ratio] 44.7 fL High 35.1-43.9 [facility] Work Phone: Erythrocyte distribution width (RBC) [Ratio] 13.9 % 11.6-14.6 [facility] Work Phone: Erythrocytes (RBC) 4.04 10*6/uL Low 4.2-5.[address] [facility] Work Phone: [phone] Hematocrit (Bld) [Volume fraction] 36.0 % Low 37-47 [facility] Work Phone: Hematocrit (HCT) 36.0 % Low 37-47 [facility] Work Phone: Hemoglobin (Bld) [Mass/Vol] 11.6 g/dL Low 12.0-15.0 [facility] Work Phone: Immature granulocytes (Bld) [#/Vol] 0.200 % 0.0-0.9 [facility] Work Phone: immature granulocytes, percentage of total cells, blood 0.200 % Invalid Interpretation Code 0.0-0.9 [facility] Work Phone: Immature granulocytes/100 WBC (Bld) 0.200 % Invalid Interpretation Code 0.0-0.9 [facility] Work Phone: Lymphocytes 1.53 X10 3/UL Invalid Interpretation Code 0.83-4.51 [facility] Work Phone: Lymphocytes (Bld) [#/Vol] 1.53 X10 3/UL 0.83-4.51 [facility] Work Phone: Lymphocytes/100 leukocytes 23.3 % Invalid Interpretation Code 19-41 [facility] Work Phone: [phone] Lymphocytes/100 WBC (Bld) 23.3 % 19-41 [facility] Work Phone: MCH 28.7 pg Invalid Interpretation Code 27.0-32.0 [facility] Work Phone: [phone] MCH (RBC) [Entitic mass] 28.7 pg 27.0-32.0 [facility] Work Phone: MCHC 32.2 G/GL Invalid Interpretation Code 32-36 [facility] Work Phone: [phone] MCHC (RBC) [Mass/Vol] 32.2 G/GL 32-36 [facility] Work Phone: MCV 89.1 fL Invalid Interpretation Code 81-99 [facility] Work Phone: [phone] MCV (RBC) [Entitic vol] 89.1 fL 81-99 [facility] Work Phone: Monocytes/100 leukocytes 10.5 % High 0-10 [facility] Work Phone: [phone] Monocytes/100 WBC (Bld) 10.5 % High 0-10 [facility] Work Phone: neutrophil count, blood 3.7 X10 3/UL Invalid Interpretation Code 2.0-7.7 [facility] Work Phone: [phone] Neutrophils (Bld) [#/Vol] 3.7 X10 3/UL 2.0-7.7 [facility] Work Phone: Neutrophils/100 leukocytes 56.4 % Invalid Interpretation Code 47-70 [facility] Work Phone: [phone] Neutrophils/100 WBC (Bld) 56.4 % 47-70 [facility] Work Phone: Platelet mean volume (Bld) [Entitic vol] 10.4 fL 6.2-12.0 [facility] Work Phone: Platelets 239 10*3/mm3 Invalid Interpretation Code 150-450 [facility] Work Phone: [phone] Platelets (Bld) [#/Vol] 239 10*3/mm3 150-450 [facility] Work Phone: PMV by Stevo 10.4 fL Invalid Interpretation Code 6.2-12.0 [facility] Work Phone: [phone] RBC (Bld) [#/Vol] 4.04 10*6/uL Low 4.2-5.4 [facility] Work Phone: RDW SD 44.7 fL High 35.1-43.9 [facility] Work Phone: RDW-CA 13.9 % Invalid Interpretation Code 11.6-14.6 [facility] Work Phone: [phone] red blood cell distribution width, size density 44.7 fL High 35.1-43.9 [facility] Work Phone: [phone] WBC (Bld) [#/Vol] 6.6 10*3/uL 4.4-11.0 [facility] Work Phone: WBC (Leukocytes) 6.6 10*3/uL Invalid Interpretation Code 4.4-11.0 [facility] Work Phone: [phone] Lab Report: MRSA Wound DNA b y PCRon 01-04-2017 GE use only - for [employer] import when terms are not otherwise specified Positive High Negative [facility] Work Phone: [phone] INR Coag (Bld) [Relative time] Positive High Negative [facility] Work Phone: SA RESULT Positive High Negative [facility] Work Phone: Office Visit: Thyroid evalua yoshionoshruthi 12-20-2016 Colonoscopy (procedure) Colonoscopy (procedure) Invalid Interpretation Code [facility] Work Phone: [phone] Protein mass conc Colonoscopy (procedure) [facility] Work Phone: Lab Report: CBC W/Diff, Auto matedon 12-13-2016 Anisocytosis presence RARE Invalid Interpretation Code [facility] Work Phone: [phone] Anisocytosis Ql (Bld) RARE [facility] Work Phone: complete blood count (CBC), comments . Invalid Interpretation Code [facility] Work Phone: [phone] Pathologist Cyto stain Nom (Cvx/Vag) [ID] May foll Invalid Interpretation Code [facility] Work Phone: Platelets LM Ql (Bld) ADEQUATE Invalid Interpretation Code ADEQ [facility] Work Phone: SMEAR COMMENT . Invalid Interpretation Code [facility] Work Phone: Lab Report: IgG Subclasseson 12-02-2016 IgG subclass 1 (S) [Mass/Vol] 392 mg/dL Low [phone] [facility] Work Phone: IgG subclass 2 [...] Code 0.7-1.7 [facility] Work Phone: [phone] Alpha 2 globulin Elph [Mass/Vol] 1.1 g/dL High 0.4-1.0 [facility] Work Phone: [id number] 0.3 g/dL Invalid Interpretation Code 0.0-0.4 [facility] Work Phone: BETA GLOBULIN 0.9 g/dL Invalid Interpretation Code 0.7-1.3 [facility] Work Phone: Gamma globulin Elph [Mass/Vol] 600 mg/dL Invalid Interpretation Code Units converted. See lab report for original value. [facility] Work Phone: Globulin 2.9 g/dL Invalid Interpretation Code 2.2-3.9 [facility] Work Phone: [phone] Globulin 0.9 g/dL Invalid Interpretation Code 0.7-1.3 [facility] Work Phone: [phone] Globulin 0.3 g/dL Invalid Interpretation Code 0.0-0.4 [facility] Work Phone: [phone] Globulin (S) [Mass/Vol] 2.9 g/dL 2.2-3.9 [facility] Work Phone: GEGE RESULT,S Comment Invalid Interpretation Code . [facility] Work Phone: [phone] IgA [Mass/Vol] 249 mg/dL Invalid Interpretation Code 87-352 [facility] Work Phone: IgG [Mass/Vol] 584 mg/dL Low 700-1600 [facility] Work Phone: IgM [Mass/Vol] 40 mg/dL Invalid Interpretation Code 26-217 [facility] Work Phone: lab comments Comment Invalid Interpretation Code . [facility] Work Phone: [phone] M-SPIKE . g/dL Invalid Interpretation Code [facility] Work Phone: MONOCLONAL PROTEIN . g/dL Invalid Interpretation Code [facility] Work Phone: [phone] NOTE: Comment Invalid Interpretation Code . [facility] Work Phone: Protein [Mass/Vol] 5.4 g/dL Low 6.0-8.5 [facility] Work Phone: [phone] Protein mass conc Comment . [facility] Work Phone: [phone] serum protein electrophoresis, interpretation/comment Comment Invalid Interpretation Code . [facility] Work Phone: [phone] Lab Report: Bedside Glucoseo n 11-18-2016 Glucose 352 mg/dL High 70-110 [facility] Work Phone: [phone] Glucose [Mass/Vol] 352 mg/dL High 70-110 [facility] Work Phone: [phone] Microbiology: Fungus Stainon 11-18-2016 fungus stain . Invalid Interpretation Code [facility] Work Phone: [phone] . Invalid Interpretation Code [facility] Work Phone: [phone] Lab Report: Basic Metabolic Profile (BMP)on 11-17-2016 Creatinine 45.87 mL/min Invalid Interpretation Code [facility] Work Phone: [phone] Lab Report: Iron+Iron Bindin g Capacityon 11-17-2016 Iron [Mass/Vol] 32 ug/dL Low 50-170 [facility] Work Phone: [phone] Iron binding capacity [Mass/Vol] 223 ug/dL Low 250-450 [facility] Work Phone: [phone] Iron saturation [Mass fraction] 14.3 % Low 15.0-55.0 [facility] Work Phone: Lab Report: Hemoglobin A1con 11-16-2016 HbA1c (Bld) [Mass fraction] 5.3 % Invalid Interpretation Code 4.2-6.3 [facility] Work Phone: Lab Report: Comprehensive Me tabolic Profilon 11-14-2016 Albumin [Mass/Vol] 2.9 g/dL Low 3.4-5.0 [facility] Work Phone: [phone] Alkaline phosphatase (ALP) 56 U/L Invalid Interpretation Code 45-117 [facility] Work Phone: ALP (Bld) [Catalytic activity/Vol] 56 U/L 45-117 [facility] Work Phone: ALT [Catalytic activity/Vol] 14 U/L Invalid Interpretation Code 12-78 [facility] Work Phone: AST [Catalytic activity/Vol] 13 U/L Low 15-37 [facility] Work Phone: Bilirubin [Mass/Vol] 0.20 mg/dL Invalid Interpretation Code 0.20-1.00 [facility] Work Phone: Protein [Mass/Vol] 6.9 g/dL Invalid Interpretation Code 6.4-8.2 [facility] Work Phone: Lab Report: Prealbuminon Prealbumin 12.9 mg/dL Low 20.0-40.0 [facility] Work Phone: Prealbumin Elph [Mass/Vol] 12.9 mg/dL Low 20.0-40.0 [facility] Work Phone: Lab Report: Vancomycin, Trou gh Levelon 10-09-2016 Vancomycin trough [Mass/Vol] 18.7 ug/mL High 5.0-15.0 [facility] Work Phone: Lab Report: Magnesiumon 08-19 Magnesium [Mass/Vol] 2.3 mg/dL Invalid Interpretation Code 1.8-2.4 [facility] Work Phone: Lab Report: Phosphoruson PHOS 3.8 mg/dL Invalid Interpretation Code 2.5-4.9 [facility] Work Phone: Phosphate [Mass/Vol] 3.8 mg/dL 2.5-4.[address] [facility] Work Phone: Phosphorus Concentratation-Random 3.8 mg/dL Invalid Interpretation Code 2.5-4.9 [facility] Work Phone: Lab Report: Liver Profileon 09-01-2016 Bilirubin.direct [Mass/Vol] 0.08 mg/dL Invalid Interpretation Code 0.00-0.30 [facility] Work Phone: Lab Report: Partial Thrombop last Timeon 09-01-2016 aPTT Coag (Bld) [Time] 46.2 s High 24.1-36.2 [facility] Work Phone: Lab Report: Prothrombin Time w/INRon 09-01-2016 INR Coag (PPP) [Relative time] 1.2 {INR} Invalid Interpretation Code [facility] Work Phone: INR in blood by coagulation 1.2 {INR} Invalid Interpretation Code [facility] Work Phone: [phone] PT Coag (PPP) [Time] 14.8 s Invalid Interpretation Code 11.7-14.9 [facility] Work Phone: Office Visit: Thyroid evalua tionon 04-19-2016 MG Breast screening Normal Bilateral Invalid Interpretation Code [facility] Work Phone: 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 ABNORMAL Invalid Interpretation Code [facility] Work Phone: [phone] Interpretation Sinus Bradycardia -L eft axis. ABNORMAL Invalid Interpretation Code [facility] Work Phone: P Haynes 39 deg Invalid Interpretation Code [facility] Work Phone: P wave axis, electrocardiogram 39 deg Invalid Interpretation Code [facility] Work Phone: [phone] ID Interval 154 ms Invalid Interpretation Code [facility] Work Phone: ID interval, electrocardiogram 154 ms Invalid Interpretation Code [facility] Work Phone: [phone] Pulse (Heart Rate) 55 /min Invalid Interpretation Code [facility] Work Phone: [phone] QRS axis, electrocardiogram -36 deg Invalid Interpretation Code [facility] Work Phone: [phone] QRS Duration 104 ms Invalid Interpretation Code [facility] Work Phone: [phone] QRS duration, electrocardiogram 104 ms Invalid Interpretation Code [facility] Work Phone: [phone] QT Interval new path ms Invalid Interpretation Code [facility] Work Phone: [phone] QT interval, electrocardiogram new path ms Invalid Interpretation Code [facility] Work Phone: [phone] T Haynes 31 deg Invalid Interpretation Code [facility] Work Phone: T wave axis, electrocardiogram 31 deg Invalid Interpretation Code [facility] Work Phone: [phone] Office Visiton 02-22-2015 Cholesterol [Mass/Vol] 164 mg/dL [facility] Work Phone: [phone] Cholesterol in HDL [Mass/Vol] 57 mg/dL [facility] Work Phone: [phone] Cholesterol in LDL [Mass/Vol] 76 mg/dL [facility] Work Phone: [phone] Triglyceride [Mass/Vol] 155 mg/dL [facility] Work Phone: [phone] 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 02-09-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 Free T4 index Calc [Mass/Vol] 10.2 Invalid Interpretation Code [facility] Work Phone: [phone] T4 [Mass/Vol] 9.9 ug/dL Invalid Interpretation Code [facility] Work Phone: [phone] Throyxin (T4) Free 10.2 ng/dL Invalid Interpretation Code [facility] Work Phone: Office Visiton 12-29-2014 cardiac risk group C Invalid Interpretation Code [facility] Work Phone: General cardiovascular disease 10Y risk [#] [place].Jarad'Agostadam N/A Invalid Interpretation Code [facility] Work Phone: 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 11-18-2014 Cholesterol in LDL/Cholesterol in HDL [Mass ratio] 2.06 [facility] Work Phone: Cholesterol.total/Chol esterol in HDL [Mass ratio] 3.56 {ratio} [facility] Work Phone: Lipoprotein.pre-beta [Mass/Vol] 32 mg/dL [facility] Work Phone: Replaced Document: Nona CHAN Observationson 01-12-2014 Pulse (Heart Rate) 406 ms Invalid Interpretation Code [facility] Work Phone: [phone] Office Visit: Thyroid evalua hunter 01-17-2013 General categories Cyto stain (Cvx/Vag) [Interp] Normal Invalid Interpretation Code [facility] Work Phone: Vital Signs Date Time Vital Sign Value Performing Clinician Facility 06-30-2025 05:22-0400 Body temperature 97.7 [degF] Dr. Rishi Vasquez DO Work Phone: [facility] 06-30-2025 05:22-0400 Body weight 79.[address] Rishi Vasquez DO Work Phone: [facility] 06-30-2025 05:22-0400 Diastolic blood pressure 58 mm[Hg] Dr. Rishi Vasquez DO Work Phone: [facility] 06-30-2025 05:22-0400 Heart rate 52 /min Dr. Rishi Vasquez DO Work Phone: [facility] 06-30-2025 05:22-0400 Respiratory rate 16 /min Dr. Rishi Vasquez DO Work Phone: [facility] 06-30-2025 05:22-0400 SaO2% (BldA) [Mass fraction] 96 % Dr. Rishi Vasquez DO Work Phone: [facility] 06-30-2025 05:22-0400 Systolic blood pressure 149 mm[Hg] Dr. Rishi Vasquez DO Work Phone: 6(400)255-485195 [place] [address] 06-24-2025 16:40-0400 Body height 167.[address] Rishi Vasquez DO Work Phone: 5(608)184-932895 [place] [address] 06-23-2025 06:00-0400 Body mass index (BMI) [Ratio] 28.1 kg/m2 Dr. Rishi Vasquez DO Work Phone: 6(088)297-574795 [place] [address] 06-18-2025 09:29-0400 Diastolic blood pressure 59 mm[Hg] Dr. Rishi Vasquez DO Work Phone: 9(305)024-222995 [place] [address] 06-18-2025 09:29-0400 Heart rate 57 /min Dr. Rishi Vasquez DO Work Phone: 9(327)424-474595 [place] [address] 06-18-2025 09:29-0400 Systolic blood pressure 179 mm[Hg] Dr. Rishi Vasquez DO Work Phone: 0(558)395-198195 [place] [address] 06-18-2025 09:28-0400 Body temperature 98.1 [degF] Dr. Rishi Vasquez DO Work Phone: 2(842)997-326995 [place] [address] 06-18-2025 09:28-0400 Respiratory rate 18 /min Dr. Rishi Vasquez DO Work Phone: 0(022)840-349295 [place] [address] 06-18-2025 09:28-0400 SaO2% (BldA) [Mass fraction] 99 % Dr. Rishi Vasquez DO Work Phone: 7(049)415-977295 [place] [address] 06-18-2025 06:29-0400 Body mass index (BMI) [Ratio] 28.6 kg/m2 Dr. Rishi Vasquez DO Work Phone: 9(952)785-238895 [place] [address] 06-18-2025 06:29-0400 Body weight 80.[address] Rishi Vasquez DO Work Phone: 1(606)447-437095 [place] [address] 06-17-2025 15:37-0400 Body height 167.[address] Rishi Vasquez DO Work Phone: 2(475)452-194795 [place] [address] 06-16-2025 17:29-0400 Body temperature 97.7 [degF] Dr. Rishi Vasquez DO Work Phone: 7(155)680-164906 [place] [address] 06-16-2025 17:29-0400 Diastolic blood pressure 53 mm[Hg] Dr. Rishi Vasquez DO Work Phone: 3(921)332-325695 [place] [address] 06-16-2025 17:29-0400 Heart rate 51 /min Dr. Rishi Vasquez DO Work Phone: 4(186)316-149195 [place] [address] 06-16-2025 17:29-0400 Respiratory rate 16 /min Dr. Rishi Vasquez DO Work Phone: 9(344)713-868595 [place] [address] 06-16-2025 17:29-0400 SaO2% (BldA) [Mass fraction] 94 % Dr. Rishi Vasquez DO Work Phone: 3(477)173-064595 [place] [address] 06-16-2025 17:29-0400 Systolic blood pressure 141 mm[Hg] Dr. Rishi Vasquez DO Work Phone: 5(883)693-999095 [place] [address] 06-16-2025 16:42-0400 Body temperature 96.6 [degF] Dr. Rishi Vasquez DO Work Phone: 0(385)271-874395 [place] [address] 06-16-2025 16:42-0400 Diastolic blood pressure 51 mm[Hg] Dr. Rishi Vasquez DO Work Phone: 9(603)956-023995 [place] [address] 06-16-2025 16:42-0400 Heart rate 50 /min Dr. Rishi Vasquez DO Work Phone: 7(775)535-521695 [place] [address] 06-16-2025 16:42-0400 Respiratory rate 16 /min Dr. Rishi Vasquez DO Work Phone: 1(402)581-118795 [place] [address] 06-16-2025 16:42-0400 SaO2% (BldA) [Mass fraction] 99 % Dr. Rishi Vasquez DO Work Phone: 5(272)514-783295 [place] [address] 06-16-2025 16:42-0400 Systolic blood pressure 141 mm[Hg] Dr. Rishi Vasquez DO Work Phone: 6(146)342-366795 [place] [address] 06-16-2025 13:22-0400 Body mass index (BMI) [Ratio] 28.3 kg/m2 Dr. Rishi Vasquez DO Work Phone: 6(051)255-403095 [place] [address] 06-16-2025 13:22-0400 Body weight 79.[address] Rishi Vasquez DO Work Phone: 0(766)771-777995 [place] [address] 06-11-2025 14:54-0400 Body temperature 98.1 [degF] Dr. Rishi Vasquez DO Work Phone: 7(923)228-793195 [place] [address] 06-11-2025 14:54-0400 Diastolic blood pressure 45 mm[Hg] Dr. Rishi Vasqeuz DO Work Phone: 2(838)956-768695 [place] [address] 06-11-2025 14:54-0400 Heart rate 48 /min Dr. Rsihi Vasquez DO Work Phone: 2(724)266-757995 [place] [address] 06-11-2025 14:54-0400 Respiratory rate 16 /min Dr. Rishi Vasquez DO Work Phone: 3(044)104-973095 [place] [address] 06-11-2025 14:54-0400 SaO2% (BldA) [Mass fraction] 100 % Dr. Rishi Vasquez DO Work Phone: 8(139)926-609695 [place] [address] 06-11-2025 14:54-0400 Systolic blood pressure 109 mm[Hg] Dr. Rishi Vasquez DO Work Phone: 1(223)701-307395 [place] [address] 06-11-2025 08:47-0400 Body height 167.[address] Rishi Vasquez DO Work Phone: 4(720)654-472495 [place] [address] 06-11-2025 08:47-0400 Body mass index (BMI) [Ratio] 27.6 kg/m2 Dr. Rishi Vasquez DO Work Phone: 6(540)898-852095 [place] [address] 06-11-2025 08:47-0400 Body weight 77.[address] Rishi Vasquez DO Work Phone: 8(609)495-864295 [place] [address] 06-11-2025 08:07-0400 Body temperature 100.2 [degF] Dr. Rishi Vasquez DO Work Phone: 2(319)422-268495 [place] [address] 06-11-2025 08:07-0400 Diastolic blood pressure 42 mm[Hg] Dr. Rishi Vasquez DO Work Phone: 0(706)257-118406 [place] [address] 06-11-2025 08:07-0400 Heart rate 54 /min Dr. Rishi Vasquez DO Work Phone: 2(650)483-883395 [place] [address] 06-11-2025 08:07-0400 Respiratory rate 14 /min Dr. Rishi Vasquez DO Work Phone: 9(149)816-630195 [place] [address] 06-11-2025 08:07-0400 SaO2% (BldA) [Mass fraction] 91 % Dr. Rishi Vasquez DO Work Phone: 6(616)365-049395 [place] [address] 06-11-2025 08:07-0400 Systolic blood pressure 98 mm[Hg] Dr. Rishi Vasquez DO Work Phone: 2(542)511-263195 [place] [address] 06-10-2025 14:42-0400 Body weight 73.[address] Rishi Vasquez DO Work Phone: 3(683)835-842295 [place] [address] 06-09-2025 14:15-0400 Body mass index (BMI) [Ratio] 26 kg/m2 Dr. Rishi Vasquez DO Work Phone: 7(337)026-700695 [place] [address] 06-09-2025 09:32-0400 Body temperature 98.2 [degF] Dr. Rishi Vasquez DO Work Phone: 5(682)957-769295 [place] [address] 06-09-2025 09:32-0400 Body weight 73.[address] Rishi Vasquez DO Work Phone: 7(874)637-640595 [place] [address] 06-09-2025 09:32-0400 Diastolic blood pressure 57 mm[Hg] Dr. Rishi Vasquez DO Work Phone: 3(039)128-753395 [place] [address] 06-09-2025 09:32-0400 Heart rate 77 /min Dr. Rishi Vasquez DO Work Phone: 7(301)725-147706 [place] [address] 06-09-2025 09:32-0400 Respiratory rate 14 /min Dr. Rishi Vasquez DO Work Phone: 5(550)827-376895 [place] [address] 06-09-2025 09:32-0400 Systolic blood pressure 140 mm[Hg] Dr. Rishi Vasquez DO Work Phone: 6(263)024-142906 [place] [address] 06-09-2025 08:42-0400 Heart rate 75 /min Dr. Rishi Vasquez DO Work Phone: 2(597)369-827795 [place] [address] 06-09-2025 08:38-0400 Body temperature 98.4 [degF] Dr. Rishi Vasquez DO Work Phone: 9(490)150-516595 [place] [address] 06-09-2025 08:38-0400 Diastolic blood pressure 58 mm[Hg] Dr. Rishi Vasquez DO Work Phone: 6(830)544-418995 [place] [address] 06-09-2025 08:38-0400 Respiratory rate 17 /min Dr. Rishi Vasquez DO Work Phone: 6(795)758-166195 [place] [address] 06-09-2025 08:38-0400 SaO2% (BldA) [Mass fraction] 99 % Dr. Rishi Vasquez DO Work Phone: 6(680)297-351695 [place] [address] 06-09-2025 08:38-0400 Systolic blood pressure 120 mm[Hg] Dr. Rishi Vasquez DO Work Phone: 8(627)556-430895 [place] [address] 06-08-2025 10:27-0400 Body height 167.[address] Rishi Vasquez DO Work Phone: 2(922)255-694395 [place] [address] 06-08-2025 10:27-0400 Body weight 73.[address] Rishi Vasquez DO Work Phone: 4(817)887-137795 [place] [address] 06-07-2025 21:20-0400 Heart rate 58 /min Dr. Rishi Vasquez DO Work Phone: 0(066)911-574406 [place] [address] 06-07-2025 21:20-0400 Respiratory rate 16 /min Dr. Rishi Vasquez DO Work Phone: 4(971)366-415295 [place] [address] 06-07-2025 21:20-0400 SaO2% (BldA) [Mass fraction] 94 % Dr. Rishi Vasquez DO Work Phone: 5(278)287-793995 [place] [address] 06-07-2025 09:22-0400 Diastolic blood pressure 43 mm[Hg] Dr. Rishi Vasquez DO Work Phone: 4(475)808-438695 [place] [address] 06-07-2025 09:22-0400 Systolic blood pressure 94 mm[Hg] Dr. Rishi Vasquez DO Work Phone: 6(543)297-201495 [place] [address] 06-07-2025 09:18-0400 Body temperature 97.7 [degF] Dr. Rishi Vasquez DO Work Phone: 4(275)400-002595 [place] [address] 06-05-2025 19:00-0400 Body temperature 97.3 [degF] Dr. Rishi Vasquez DO Work Phone: 1(710)257-814195 [place] [address] 06-05-2025 19:00-0400 Diastolic blood pressure 52 mm[Hg] Dr. Rishi Vasquez DO Work Phone: 6(782)993-095995 [place] [address] 06-05-2025 19:00-0400 Heart rate 63 /min Dr. Rishi Vasquez DO Work Phone: 6(773)457-660895 [place] [address] 06-05-2025 19:00-0400 Respiratory rate 16 /min Dr. Rishi Vasquez DO Work Phone: 7(617)530-495195 [place] [address] 06-05-2025 19:00-0400 SaO2% (BldA) [Mass fraction] 100 % Dr. Rishi Vasquez DO Work Phone: 8(557)707-660395 [place] [address] 06-05-2025 19:00-0400 Systolic blood pressure 140 mm[Hg] Dr. Rishi Vasquez DO Work Phone: 6(901)360-248795 [place] [address] 06-05-2025 17:32-0400 Body height 167.[address] Rishi Vasquez DO Work Phone: 0(244)586-815095 [place] [address] 06-05-2025 17:32-0400 Body mass index (BMI) [Ratio] 26.1 kg/m2 Dr. Rishi Vasquez DO Work Phone: 4(358)922-762895 [place] [address] 06-05-2025 17:32-0400 Body weight 73.[address] Rishi Vasquez DO Work Phone: 3(601)418-215695 [place] [address] 06-05-2025 16:27-0400 Body weight 73.[address] Rishi Vasquez DO Work Phone: 6(830)319-765495 [place] [address] 06-03-2025 18:27-0400 Body mass index (BMI) [Ratio] 26.2 kg/m2 Dr. Rishi Vasquez DO Work Phone: 9(621)608-566995 [place] [address] 06-01-2025 15:00-0400 Body temperature 98.1 [degF] Dr. Rishi Vasquez DO Work Phone: 4(136)833-017295 [place] [address] 06-01-2025 15:00-0400 Diastolic blood pressure 56 mm[Hg] Dr. Rishi Vasquez DO Work Phone: 2(896)481-465295 [place] [address] 06-01-2025 15:00-0400 Heart rate 68 /min Dr. Rishi Vasquez DO Work Phone: 9(060)303-073595 [place] [address] 06-01-2025 15:00-0400 Respiratory rate 17 /min Dr. Rishi Vasquez DO Work Phone: 9(885)018-124795 [place] [address] 06-01-2025 15:00-0400 SaO2% (BldA) [Mass fraction] 100 % Dr. Rishi Vasquez DO Work Phone: 6(433)446-566995 [place] [address] 06-01-2025 15:00-0400 Systolic blood pressure 109 mm[Hg] Dr. Rishi Vasquez DO Work Phone: 9(608)237-948695 [place] [address] 06-01-2025 06:00-0400 Body mass index (BMI) [Ratio] 26.4 kg/m2 Dr. Rishi Vasquez DO Work Phone: 0(250)912-518895 [place] [address] 06-01-2025 06:00-0400 Body weight 74.[address] Rishi Vasquez DO Work Phone: 0(945)612-516595 [place] [address] 05-28-2025 15:32-0400 Body height 167.[address] Rishi Vasquez DO Work Phone: 1(789)470-010495 [place] [address] 05-28-2025 11:58-0400 Inhaled oxygen flow rate 2 L/min Dr. Rishi Vasquez DO Work Phone: 2(239)204-083806 [place] [address] 05-26-2025 06:39-0400 Body temperature 97.9 [degF] Dr. Rishi Vasquez DO Work Phone: 8(838)299-104495 [place] [address] 05-26-2025 06:39-0400 Diastolic blood pressure 63 mm[Hg] Dr. Rishi Vasquez DO Work Phone: 5(295)505-368495 [place] [address] 05-26-2025 06:39-0400 Heart rate 62 /min Dr. Rishi Vasquez DO Work Phone: 7(711)170-037595 [place] [address] 05-26-2025 06:39-0400 Respiratory rate 16 /min Dr. Rishi Vasquez DO Work Phone: 6(539)359-104795 [place] [address] 05-26-2025 06:39-0400 SaO2% (BldA) [Mass fraction] 97 % Dr. Rishi Vasquez DO Work Phone: 9(174)091-818495 [place] [address] 05-26-2025 06:39-0400 Systolic blood pressure 149 mm[Hg] Dr. Rishi Vasquez DO Work Phone: 7(632)901-125895 [place] [address] 05-26-2025 05:18-0400 Body weight 73.[address] Rishi Vasquez DO Work Phone: 4(636)348-906695 [place] [address] 05-23-2025 10:49-0400 Body height 167.[address] Rishi Vasquez DO Work Phone: 4(721)280-852195 [place] [address] 05-22-2025 14:40-0400 Body mass index (BMI) [Ratio] 26.2 kg/m2 Dr. Rishi Vasquez DO Work Phone: 3(159)643-183795 [place] [address] 05-22-2025 14:18-0400 Body temperature 98.6 [degF] Dr. Rishi Vasquez DO Work Phone: 9(474)282-205695 [place] [address] 05-22-2025 14:18-0400 Diastolic blood pressure 98 mm[Hg] Dr. Rishi Vasquez DO Work Phone: 1(868)107-789295 [place] [address] 05-22-2025 14:18-0400 Heart rate 76 /min Dr. Rishi Vasquez DO Work Phone: 2(639)225-681306 [place] [address] 05-22-2025 14:18-0400 Respiratory rate 98 /min Dr. Rishi Vasquez DO Work Phone: 0(371)776-191095 [place] [address] 05-22-2025 14:18-0400 SaO2% (BldA) [Mass fraction] 100 % Dr. Rishi Vasquez DO Work Phone: 1(084)756-092795 [place] [address] 05-22-2025 14:18-0400 Systolic blood pressure 153 mm[Hg] Dr. Rishi Vasquez DO Work Phone: 3(663)625-283395 [place] [address] 05-22-2025 11:43-0400 Body mass index (BMI) [Ratio] 25.9 kg/m2 Dr. Rishi Vasquez DO Work Phone: 8(605)654-878695 [place] [address] 05-22-2025 11:43-0400 Body weight [address] Rishi Vasquez DO Work Phone: 2(178)429-937195 [place] [address] 05-22-2025 11:05-0400 Body height 167.[address] Rishi Vasquez DO Work Phone: 3(634)643-225095 [place] [address] 05-21-2025 11:23-0400 Body temperature 97.7 [degF] Dr. Rishi Vasquez DO Work Phone: 4(211)591-960495 [place] [address] 05-21-2025 11:23-0400 Diastolic blood pressure 47 mm[Hg] Dr. Rishi Vasquez DO Work Phone: 2(081)238-752895 [place] [address] 05-21-2025 11:23-0400 Heart rate 57 /min Dr. Rishi Vasquez DO Work Phone: 9(024)932-057095 [place] [address] 05-21-2025 11:23-0400 Respiratory rate 16 /min Dr. Rishi Vasquez DO Work Phone: 2(364)277-500695 [place] [address] 05-21-2025 11:23-0400 SaO2% (BldA) [Mass fraction] 96 % Dr. Rishi Vasquez DO Work Phone: 3(297)640-814095 [place] [address] 05-21-2025 11:23-0400 Systolic blood pressure 111 mm[Hg] Dr. Rishi Vasquez DO Work Phone: 0(510)645-081806 [place] [address] 05-21-2025 10:36-0400 Body height 167.[address] Rishi Vasquez DO Work Phone: 5(512)017-081795 [place] [address] 05-21-2025 10:36-0400 Body weight 73.[address] Rishi Vasquez DO Work Phone: 0(848)189-816095 [place] [address] 05-21-2025 03:11-0400 Inhaled oxygen flow rate 2 L/min Dr. Rishi Vasquez DO Work Phone: 0(406)722-942895 [place] [address] 05-21-2025 03:05-0400 Body mass index (BMI) [Ratio] 25.9 kg/m2 Dr. Rishi Vasquez DO Work Phone: 8(290)206-063195 [place] [address] 05-20-2025 15:37-0400 Inhaled oxygen concentration 96 % Dr. Rishi Vasquez DO Work Phone: 7(103)426-772295 [place] [address] 05-18-2025 23:00-0400 Diastolic blood pressure 54 mm[Hg] Dr. Rishi Vasquez DO Work Phone: 8(368)199-898395 [place] [address] 05-18-2025 23:00-0400 Heart rate 83 /min Dr. Rishi Vasquez DO Work Phone: 2(012)820-723595 [place] [address] 05-18-2025 23:00-0400 SaO2% (BldA) [Mass fraction] 96 % Dr. Rishi Vasquez DO Work Phone: 7(582)346-755395 [place] [address] 05-18-2025 23:00-0400 Systolic blood pressure 105 mm[Hg] Dr. Rishi Vasquez DO Work Phone: 0(393)628-380895 [place] [address] 05-18-2025 20:00-0400 Body temperature 98.9 [degF] Dr. Rishi Vasquez DO Work Phone: 5(036)728-229295 [place] [address] 05-18-2025 16:00-0400 Inhaled oxygen flow rate 2 L/min Dr. Rishi Vasquez DO Work Phone: 3(040)816-401295 [place] [address] 05-18-2025 10:51-0400 Body height 167.[address] Rishi Vasquez DO Work Phone: 8(170)004-556695 [place] [address] 05-18-2025 10:51-0400 Body weight 69.[address] Rishi Vasquez DO Work Phone: 6(174)039-330795 [place] [address] 05-18-2025 08:00-0400 Inhaled oxygen concentration 96 % Dr. Rishi Vasquez DO Work Phone: 4(354)636-216695 [place] [address] 05-18-2025 06:00-0400 Body mass index (BMI) [Ratio] 24.5 kg/m2 Dr. Rishi Vasquez DO Work Phone: 2(991)493-908195 [place] [address] 05-18-2025 02:01-0400 Body temperature 103.1 [degF] Dr. Rishi Vasquez DO Work Phone: 2(300)617-173795 [place] [address] 05-18-2025 02:01-0400 Diastolic blood pressure 60 mm[Hg] Dr. Rishi Vasquez DO Work Phone: 5(478)019-674395 [place] [address] 05-18-2025 02:01-0400 Heart rate 100 /min Dr. Rishi Vasquez DO Work Phone: 4(563)051-918095 [place] [address] 05-18-2025 02:01-0400 Respiratory rate 17 /min Dr. Rishi Vasquez DO Work Phone: 6(136)449-848595 [place] [address] 05-18-2025 02:01-0400 SaO2% (BldA) [Mass fraction] 92 % Dr. Rishi Vasquez DO Work Phone: 9(569)786-580395 [place] [address] 05-18-2025 02:01-0400 Systolic blood pressure 114 mm[Hg] Dr. Rishi Vasquez DO Work Phone: 5(251)706-160295 [place] [address] 05-17-2025 21:40-0400 Body height 167.[address] Rishi Vasquez DO Work Phone: 3(806)803-470695 [place] [address] 05-17-2025 21:40-0400 Body mass index (BMI) [Ratio] 25.9 kg/m2 Dr. Rishi Vasquez DO Work Phone: 0(409)897-136595 [place] [address] 05-17-2025 21:40-0400 Body weight 72.[address] Rishi Vasquez DO Work Phone: 3(155)847-385395 [place] [address] 05-13-2025 16:09-0400 Body temperature 98.2 [degF] Dr. Rishi Vasquez DO Work Phone: 5(584)942-975695 [place] [address] 05-13-2025 16:09-0400 Body weight 70.[address] Rishi Vasquez DO Work Phone: 2(470)973-760095 [place] [address] 05-13-2025 16:09-0400 Diastolic blood pressure 54 mm[Hg] Dr. Rishi Vasquez DO Work Phone: 5(623)735-839795 [place] [address] 05-13-2025 16:09-0400 Heart rate 60 /min Dr. Rishi Vasquez DO Work Phone: 6(565)017-719395 [place] [address] 05-13-2025 16:09-0400 Respiratory rate 16 /min Dr. Rishi Vasquez DO Work Phone: 0(992)659-436695 [place] [address] 05-13-2025 16:09-0400 SaO2% (BldA) [Mass fraction] 97 % Dr. Rishi Vasquez DO Work Phone: 3(247)310-609295 [place] [address] 05-13-2025 16:09-0400 Systolic blood pressure 130 mm[Hg] Dr. Rishi Vasquez DO Work Phone: 9(164)658-854295 [place] [address] 05-07-2025 09:19-0400 Body height 167.[address] Rishi Vasquez DO Work Phone: 5(809)542-200395 [place] [address] 05-07-2025 09:19-0400 Body mass index (BMI) [Ratio] 24.7 kg/m2 Dr. Rishi Vasquez DO Work Phone: 3(626)121-432195 [place] [address] 05-07-2025 09:19-0400 Body weight 69.[address] Rishi Vasquez DO Work Phone: 2(226)191-244595 [place] [address] 05-07-2025 09:19-0400 Diastolic blood pressure 63 mm[Hg] Dr. Rishi Vasquez DO Work Phone: 2(244)224-968795 [place] [address] 05-07-2025 09:19-0400 Heart rate 56 /min Dr. Rishi Vasquez DO Work Phone: [facility] 05-07-2025 09:19-0400 Respiratory rate 16 /min Dr. Rishi Vasquez DO Work Phone: [facility] 05-07-2025 09:19-0400 Systolic blood pressure 123 mm[Hg] Dr. Rishi Vasquez DO Work Phone: [facility] 04-30-2025 11:13-0400 Body mass index (BMI) [Ratio] 24.5 kg/m2 Ld Chandra SORT OPERATIONS SUPERVISOR.[employer] Work Phone: [facility] 04-30-2025 11:13-0400 Body weight 68.86 kg Ld Chandra SORT OPERATIONS SUPERVISOR.[employer] Work Phone: [facility] 04-30-2025 11:13-0400 Diastolic blood pressure 60 mm[Hg] Ld Chandra SORT OPERATIONS SUPERVISOR.[employer] Work Phone: [facility] 04-30-2025 11:13-0400 Heart rate 77 /min Ld Chandra SORT OPERATIONS SUPERVISOR.[employer] Work Phone: [facility] 04-30-2025 11:13-0400 Respiratory rate 12 /min Ld Chandra SORT OPERATIONS SUPERVISOR.[employer] Work Phone: [facility] 04-30-2025 11:13-0400 SaO2% (BldA) [Mass fraction] 98 % Ld Chandra S[employer] OPERATIONS SUPERVISOR.[employer] Work Phone: [facility] 04-30-2025 11:13-0400 Systolic blood pressure 130 mm[Hg] Ld Chandra SORT OPERATIONS SUPERVISOR.[employer] Work Phone: [facility] 04-15-2025 11:26-0400 Body height 167.[address] Rishi Vasquez DO Work Phone: [facility] 04-15-2025 11:26-0400 Body weight 74.[address] Rishi Vasquez DO Work Phone: [facility] 04-14-2025 07:25-0400 Body mass index (BMI) [Ratio] 26.4 kg/m2 Dr. Rishi Vasquez DO Work Phone: 4(943)257-633706 [place] [address] 04-03-2025 11:01-0400 Body temperature 98.2 [degF] Dr. Rishi Vasquez DO Work Phone: 3(094)390-446306 [place] [address] 04-03-2025 11:01-0400 Body weight 74.[address] Rishi Vasquez DO Work Phone: 5(046)095-975606 [place] [address] 04-03-2025 11:01-0400 Diastolic blood pressure 59 mm[Hg] Dr. Rishi Vasquez DO Work Phone: 9(907)000-968495 [place] [address] 04-03-2025 11:01-0400 Heart rate 60 /min Dr. Rishi Vasquez DO Work Phone: 3(436)594-683795 [place] [address] 04-03-2025 11:01-0400 Respiratory rate 14 /min Dr. Rishi Vasquez DO Work Phone: 2(913)997-221806 [place] [address] 04-03-2025 11:01-0400 SaO2% (BldA) [Mass fraction] 97 % Dr. Rishi Vasquez DO Work Phone: 2(136)235-021106 [place] [address] 04-03-2025 11:01-0400 Systolic blood pressure 124 mm[Hg] Dr. Rishi Vasquez DO Work Phone: 7(418)297-673106 [place] [address] 03-27-2025 10:16-0400 Diastolic blood pressure 68 mm[Hg] Yumiko Podlogar SORT OPERATIONS SUPERVISOR.[employer] Work Phone: [facility] 03-27-2025 10:16-0400 Heart rate 74 /min Yumiko Podlogar SORT OPERATIONS SUPERVISOR.[employer] Work Phone: [facility] 03-27-2025 10:16-0400 Respiratory rate 16 /min Yumiko Podlogar SORT OPERATIONS SUPERVISOR.[employer] Work Phone: [facility] 03-27-2025 10:16-0400 SaO2% (BldA) [Mass fraction] 99 % Yumiko Podlogar SORT OPERATIONS SUPERVISOR.[employer] Work Phone: [facility] 03-27-2025 10:16-0400 Systolic blood pressure 134 mm[Hg] Yumiko Whitehead APRN.[employer] Work Phone: [facility] 03-20-2025 08:28-0400 Body temperature 98.9 [degF] Dr. Rishi Vasquez DO Work Phone: [facility] 03-20-2025 08:28-0400 Diastolic blood pressure 57 mm[Hg] Dr. Rishi Vasquez DO Work Phone: [facility] 03-20-2025 08:28-0400 Heart rate 52 /min Dr. Rishi Vasquez DO Work Phone: 3(698)346-264906 [place] [address] 03-20-2025 08:28-0400 Respiratory rate 18 /min Dr. Rishi Vasquez DO Work Phone: 6(252)460-266106 [place] [address] 03-20-2025 08:28-0400 SaO2% (BldA) [Mass fraction] 97 % Dr. Rishi Vasquez DO Work Phone: 5(052)854-723306 [place] [address] 03-20-2025 08:28-0400 Systolic blood pressure 142 mm[Hg] Dr. Rishi Vasquez DO Work Phone: 8(657)721-161706 [place] [address] 03-19-2025 10:06-0400 Body height 167.[address] Rishi Vasquez DO Work Phone: 7(876)876-928306 [place] [address] 03-19-2025 10:06-0400 Body mass index (BMI) [Ratio] 26.4 kg/m2 Dr. Rishi Vasquez DO Work Phone: 3(268)269-554606 [place] [address] 03-19-2025 10:06-0400 Body weight 74.[address] Rishi Vasquez DO Work Phone: 9(245)465-605206 [place] [address] 03-11-2025 15:34-0400 Body temperature 97.9 [degF] Dr. Rishi Vasquez DO Work Phone: 5(469)668-444606 [place] [address] 03-11-2025 15:34-0400 Diastolic blood pressure 47 mm[Hg] Dr. Rishi Vasquez DO Work Phone: 1(985)391-920506 [place] [address] 03-11-2025 15:34-0400 Heart rate 58 /min Dr. Rishi Vasquez DO Work Phone: 8(816)785-615206 [place] [address] 03-11-2025 15:34-0400 Respiratory rate 16 /min Dr. Rishi Vasquez DO Work Phone: 5(475)341-538795 [place] [address] 03-11-2025 15:34-0400 SaO2% (BldA) [Mass fraction] 97 % Dr. Rishi Vasquez DO Work Phone: 7(889)450-568195 [place] [address] 03-11-2025 15:34-0400 Systolic blood pressure 112 mm[Hg] Dr. Rishi Vasquez DO Work Phone: 4(796)314-616595 [place] [address] 03-11-2025 05:37-0400 Body mass index (BMI) [Ratio] 26.6 kg/m2 Dr. Rishi Vasquez DO Work Phone: 0(495)107-017795 [place] [address] 03-11-2025 05:37-0400 Body weight 75.[address] Rishi Vasquez DO Work Phone: 2(392)527-517795 [place] [address] 03-07-2025 17:01-0400 Body temperature 98 [degF] Dr. Rishi Vasquez DO Work Phone: 2(811)075-514695 [place] [address] 03-07-2025 17:01-0400 Diastolic blood pressure 78 mm[Hg] Dr. Rishi Vasquez DO Work Phone: 6(004)640-206895 [place] [address] 03-07-2025 17:01-0400 Heart rate 67 /min Dr. Rishi Vasquez DO Work Phone: 4(688)787-421795 [place] [address] 03-07-2025 17:01-0400 Respiratory rate 14 /min Dr. Rishi Vasquez DO Work Phone: 9(204)194-933895 [place] [address] 03-07-2025 17:01-0400 SaO2% (BldA) [Mass fraction] 99 % Dr. Rishi Vasquez DO Work Phone: 5(317)465-766195 [place] [address] 03-07-2025 17:01-0400 Systolic blood pressure 109 mm[Hg] Dr. Rishi Vsaquez DO Work Phone: [facility] 03-07-2025 13:42-0400 Body height 167.[address] Rishi Vasquez DO Work Phone: [facility] 03-07-2025 13:42-0400 Body mass index (BMI) [Ratio] 27.6 kg/m2 Dr. Rishi Vasquez DO Work Phone: [facility] 03-07-2025 13:42-0400 Body weight 77.[address] Rishi Vasquez DO Work Phone: [facility] 12-05-2024 09:39-0500 Diastolic blood pressure 60 mm[Hg] Rishi Vasquez DO Work Phone: [facility] 12-05-2024 09:39-0500 Systolic blood pressure 110 mm[Hg] Rishi Del Rosarioon DO Work Phone: [facility] 12-05-2024 09:03-0500 Body mass index (BMI) [Ratio] 25.62 kg/m2 Rishi Vasquez DO Work Phone: [facility] 12-05-2024 09:03-0500 Body temperature 97 [degF] Rishi Vasquez DO Work Phone: [facility] 12-05-2024 09:03-0500 Body weight 72 kg Rishi Vasquez DO Work Phone: [facility] 12-05-2024 09:03-0500 Heart rate 60 /min Rishi Vasquez DO Work Phone: [facility] 12-05-2024 09:03-0500 Respiratory rate 16 /min Rishi Vasquez DO Work Phone: [facility] 06-04-2024 09:43-0400 Body mass index (BMI) [Ratio] 24.69 kg/m2 Rishi Vasquez DO Work Phone: [facility] 06-04-2024 09:43-0400 Body temperature 96.6 [degF] Rishi Vasquez DO Work Phone: [facility] 06-04-2024 09:43-0400 Body weight 69.4 kg Rishi Vasquez DO Work Phone: [facility] 06-04-2024 09:43-0400 Diastolic blood pressure 70 mm[Hg] Rishi Vasquez DO Work Phone: [facility] 06-04-2024 09:43-0400 Heart rate 64 /min Rishi Vasquez DO Work Phone: [facility] 06-04-2024 09:43-0400 Respiratory rate 16 /min Rishi Vasquez DO Work Phone: [facility] 06-04-2024 09:43-0400 Systolic blood pressure 154 mm[Hg] Rishi Del Rosarioon DO Work Phone: [facility] 02-07-2024 09:19-0400 Body mass index (BMI) [Ratio] 25.8 kg/m2 Dr. Rishi Vasquez Work Phone: [facility] 02-07-2024 09:19-0400 Body weight 72.[address] Rishi Vasquez Work Phone: [facility] 02-07-2024 09:19-0400 Diastolic blood pressure 71 mm[Hg] Dr. Rishi Vasquez Work Phone: [facility] 02-07-2024 09:19-0400 Heart rate 47 /min Dr. Rishi Vasquez Work Phone: [facility] 02-07-2024 09:19-0400 Respiratory rate 18 /min Dr. Rishi Vasquez Work Phone: [facility] 02-07-2024 09:19-0400 Systolic blood pressure 142 mm[Hg] Dr. Rishi Vasquez Work Phone: [facility] 01-15-2024 10:00-0500 Diastolic blood pressure 71 mm[Hg] Anselmo Golias PT Work Phone: [facility] 01-15-2024 10:00-0500 Heart rate 63 /min Anselmo Golias PT Work Phone: [facility] 01-15-2024 10:00-0500 Systolic blood pressure 166 mm[Hg] Anselmo Golias PT Work Phone: [facility] 07-03-2023 09:06-0400 Body height 167.[address] Rishi Vasquez Work Phone: [facility] 07-03-2023 09:06-0400 Body mass index (BMI) [Ratio] 26.1 kg/m2 Dr. Rishi Vasquez Work Phone: [facility] 07-03-2023 09:06-0400 Body weight 73.[address] Rishi Vasquez Work Phone: [facility] 07-03-2023 09:06-0400 Diastolic blood pressure 62 mm[Hg] Dr. Rishi Vasquez Work Phone: [facility] 07-03-2023 09:06-0400 Heart rate 55 /min Dr. Rishi Vasquez Work Phone: [facility] 07-03-2023 09:06-0400 Respiratory rate 17 /min Dr. Rishi Vasquez Work Phone: [facility] 07-03-2023 09:06-0400 SaO2% (BldA) [Mass fraction] 99 % Dr. Rishi Vasquez Work Phone: [facility] 07-03-2023 09:06-0400 Systolic blood pressure 145 mm[Hg] Dr. Rishi Vasquez Work Phone: [facility] 06-04-2023 11:25-0400 Body temperature 97.3 [degF] Rishi Vasquez DO Work Phone: [facility] 06-04-2023 11:25-0400 Body weight 72.58 kg Rishi Vasquez DO Work Phone: [facility] 06-04-2023 11:25-0400 Diastolic blood pressure 70 mm[Hg] Rishi Vasquez DO Work Phone: [facility] 06-04-2023 11:25-0400 Heart rate 60 /min Rishi Vasquez DO Work Phone: [facility] 06-04-2023 11:25-0400 Respiratory rate 16 /min Rishi Vasquez DO Work Phone: [facility] 06-04-2023 11:25-0400 Systolic blood pressure 120 mm[Hg] Rishi Vasquez DO Work Phone: [facility] 04-20-2023 08:57-0400 Body height 167.[address] Rishi Vasquez Work Phone: 0(118)685-533306 [place] [address] 04-20-2023 08:57-0400 Heart rate 56 /min Dr. Rishi Vasquez Work Phone: 1(776)196-585295 [place] [address] 04-20-2023 08:51-0400 Body mass index (BMI) [Ratio] 25.9 kg/m2 Dr. Rishi Vasquez Work Phone: 8(847)421-265306 [place] [address] 04-20-2023 08:51-0400 Body weight 73.[address] Rihsi Vasquez Work Phone: 1(678)321-426895 [place] [address] 04-20-2023 08:51-0400 Diastolic blood pressure 72 mm[Hg] Dr. Rishi Vasquez Work Phone: 2(176)482-178506 [place] [address] 04-20-2023 08:51-0400 Respiratory rate 18 /min Dr. Rishi Vasquez Work Phone: 1(628)212-670306 [place] [address] 04-20-2023 08:51-0400 SaO2% (BldA) [Mass fraction] 99 % Dr. Rishi Vasquez Work Phone: 2(365)575-294706 [place] [address] 04-20-2023 08:51-0400 Systolic blood pressure 147 mm[Hg] Dr. Rishi Vasquez Work Phone: 4(945)602-978006 [place] [address] 12-05-2022 09:40-0500 Body temperature 97.3 [degF] Rishi Vasquez DO Work Phone: 3(979)223-496799 [place] [address] 12-05-2022 09:40-0500 Body weight 72.58 kg Rishi Vasquez DO Work Phone: [facility] 12-05-2022 09:40-0500 Diastolic blood pressure 82 mm[Hg] Rishi Vasquez DO Work Phone: [facility] 12-05-2022 09:40-0500 Heart rate 64 /min Rishi Vasquez DO Work Phone: [facility] 12-05-2022 09:40-0500 Respiratory rate 16 /min Rishi Vasquez DO Work Phone: [facility] 12-05-2022 09:40-0500 Systolic blood pressure 126 mm[Hg] Rishi Vasquez DO Work Phone: [facility] 09-23-2022 09:01-0400 Body temperature 97.5 [degF] Camille Athy PA-C Work Phone: [facility] 09-23-2022 09:01-0400 Body weight 74.93 kg Camille Athy PA-C Work Phone: [facility] 09-23-2022 09:01-0400 Diastolic blood pressure 72 mm[Hg] Camille Athy PA-C Work Phone: [facility] 09-23-2022 09:01-0400 Heart rate 62 /min Camille Athy PA-C Work Phone: [facility] 09-23-2022 09:01-0400 Respiratory rate 21 /min Camille Athy PA-C Work Phone: [facility] 09-23-2022 09:01-0400 SaO2% (BldA) [Mass fraction] 99 % Camille Athy PA-C Work Phone: [facility] 09-23-2022 09:01-0400 Systolic blood pressure 160 mm[Hg] Camille Athy PA-C Work Phone: [facility] 08-15-2022 12:13-0400 Body temperature 97.81 [degF] Camille Athy PA-C Work Phone: [facility] 08-15-2022 12:13-0400 Body weight 75.03 kg Camille Athy PA-C Work Phone: [facility] 08-15-2022 12:13-0400 Diastolic blood pressure 86 mm[Hg] Camille Athy PA-C Work Phone: [facility] 08-15-2022 12:13-0400 Heart rate 49 /min Camille Athy PA-C Work Phone: [facility] 08-15-2022 12:13-0400 Respiratory rate 18 /min Camille Athy PA-C Work Phone: [facility] 08-15-2022 12:13-0400 SaO2% (BldA) [Mass fraction] 98 % Camille Athy PA-C Work Phone: [facility] 08-15-2022 12:13-0400 Systolic blood pressure 162 mm[Hg] Camille Athy PA-C Work Phone: [facility] 08-08-2022 09:30-0400 Body height 167.[address] Rishi Vasquze Work Phone: [facility] Work Phone: 08-08-2022 09:30-0400 Body mass index (BMI) [Ratio] 26.6 kg/m2 Dr. Rishi Vasquez Work Phone: [facility] Work Phone: 08-08-2022 09:30-0400 Body weight 74.[address] Rishi Vasquez Work Phone: [facility] Work Phone: 08-08-2022 09:30-0400 Diastolic blood pressure 51 mm[Hg] Dr. Rishi Vasquez Work Phone: [facility] Work Phone: 08-08-2022 09:30-0400 Heart rate 46 /min Dr. Rishi Vasquez Work Phone: [facility] Work Phone: 08-08-2022 09:30-0400 Respiratory rate 16 /min Dr. Rishi Vasquez Work Phone: [facility] Work Phone: 08-08-2022 09:30-0400 Systolic blood pressure 126 mm[Hg] Dr. Rishi Vasquez Work Phone: [facility] Work Phone: 06-29-2022 09:35-0400 Diastolic blood pressure 71 mm[Hg] Dr. Rishi Vasquez Work Phone: [facility] Work Phone: 06-29-2022 09:35-0400 Respiratory rate 18 /min Dr. Rishi Vasquez Work Phone: [facility] Work Phone: 06-29-2022 09:35-0400 Systolic blood pressure 164 mm[Hg] Dr. Rishi Vasquez Work Phone: [facility] Work Phone: 06-17-2022 08:24-0400 Body temperature 97.9 [degF] Kena Older SORT OPERATIONS SUPERVISOR.[employer] Work Phone: [facility] 06-17-2022 08:24-0400 Body weight 76.39 kg Kena Older SORT OPERATIONS SUPERVISOR.[employer] Work Phone: [facility] 06-17-2022 08:24-0400 Diastolic blood pressure 80 mm[Hg] Kena Older SORT OPERATIONS SUPERVISOR.[employer]IVER Work Phone: [facility] 06-17-2022 08:24-0400 Heart rate 59 /min Kena Older SORT OPERATIONS SUPERVISOR.[employer]IVER Work Phone: [facility] 06-17-2022 08:24-0400 Respiratory rate 20 /min Kena Older SORT OPERATIONS SUPERVISOR.[employer]IVER Work Phone: [facility] 06-17-2022 08:24-0400 SaO2% (BldA) [Mass fraction] 97 % Kena Older SORT OPERATIONS SUPERVISOR.[employer]IVER Work Phone: [facility] 06-17-2022 08:24-0400 Systolic blood pressure 158 mm[Hg] Kena Older SORT OPERATIONS SUPERVISOR.[employer] Work Phone: [facility] 05-31-2022 10:19-0400 Body temperature 98.29 [degF] Rishi Vasquez DO Work Phone: [facility] 05-31-2022 10:19-0400 Body weight 75.3 kg Rishi Vasquez DO Work Phone: [facility] 05-31-2022 10:19-0400 Diastolic blood pressure 70 mm[Hg] Rishi Vasquez DO Work Phone: [facility] 05-31-2022 10:19-0400 Heart rate 56 /min Rishi Vasquez DO Work Phone: [facility] 05-31-2022 10:19-0400 Systolic blood pressure 116 mm[Hg] Rishi Vasquez DO Work Phone: [facility] 02-07-2022 08:55-0400 Body height 167.[address] Rishi Vasquez Work Phone: [facility] Work Phone: 02-07-2022 08:55-0400 Body mass index (BMI) [Ratio] 26.9 kg/m2 Dr. Rishi Vasquez Work Phone: [facility] Work Phone: 02-07-2022 08:55-0400 Body weight 75.[address] Rishi Vasquez Work Phone: [facility] Work Phone: 02-07-2022 08:55-0400 Diastolic blood pressure 68 mm[Hg] Dr. Rishi Vasquez Work Phone: [facility] Work Phone: 02-07-2022 08:55-0400 Heart rate 63 /min Dr. Rishi Vasquez Work Phone: [facility] Work Phone: 02-07-2022 08:55-0400 Respiratory rate 18 /min Dr. Rishi Vasquez Work Phone: [facility] Work Phone: 02-07-2022 08:55-0400 SaO2% (BldA) [Mass fraction] 100 % Dr. Rishi Vasquez Work Phone: [facility] Work Phone: 02-07-2022 08:55-0400 Systolic blood pressure 152 mm[Hg] Dr. Rishi Vasquez Work Phone: [facility] Work Phone: 01-20-2022 09:42-0500 Body temperature 97.6 [degF] Dr. Rishi Vasquez Work Phone: [facility] Work Phone: 01-20-2022 09:42-0500 Diastolic blood pressure 56 mm[Hg] Dr. Rishi Vasquez Work Phone: [facility] Work Phone: 01-20-2022 09:42-0500 Heart rate 75 /min Dr. Rishi Vasquez Work Phone: [facility] Work Phone: 01-20-2022 09:42-0500 Respiratory rate 16 /min Dr. Rishi Vasquez Work Phone: [facility] Work Phone: 01-20-2022 09:42-0500 SaO2% (BldA) [Mass fraction] 98 % Dr. Rishi Vasquez Work Phone: [facility] Work Phone: 01-20-2022 09:42-0500 Systolic blood pressure 123 mm[Hg] Dr. Rishi Vasquez Work Phone: [facility] Work Phone: 12-29-2021 08:28-0500 Body mass index (BMI) [Ratio] 27.1 kg/m2 Dr. Rishi Vasquez Work Phone: [facility] Work Phone: 12-29-2021 08:28-0500 Body temperature 97.8 [degF] Dr. Rishi Vsaquez Work Phone: [facility] Work Phone: 12-29-2021 08:28-0500 Body weight 76.[address] Rishi Vasquez Work Phone: [facility] Work Phone: 12-29-2021 08:28-0500 Diastolic blood pressure 64 mm[Hg] Dr. Rishi Vasquez Work Phone: [facility] Work Phone: 12-29-2021 08:28-0500 Heart rate 60 /min Dr. Rishi Vasquez Work Phone: [facility] Work Phone: 12-29-2021 08:28-0500 Respiratory rate 17 /min Dr. Rishi Vasquez Work Phone: [facility] Work Phone: 12-29-2021 08:28-0500 SaO2% (BldA) [Mass fraction] 97 % Dr. Rishi Vasquez Work Phone: [facility] Work Phone: 12-29-2021 08:28-0500 Systolic blood pressure 182 mm[Hg] Dr. Rishi Vasquez Work Phone: [facility] Work Phone: 10-18-2021 23:19-0500 Body mass index (BMI) [Ratio] 26.9 kg/m2 Dr. Rishi Vasquez Work Phone: [facility] Work Phone: 08-30-2017 15:31-0400 BMI (Body Mass Index) 29.78 kg/m2 Kwaku Moscoso MD [facility] Work Phone: 08-30-2017 15:31-0400 Body Temperature 98.1 [degF] Kwaku Moscoso MD [facility] Work Phone: 08-30-2017 15:31-0400 BP Diastolic 73 mm[Hg] Kwaku Moscoso MD [facility] Work Phone: 08-30-2017 15:31-0400 BP Systolic 156 mm[Hg] Kwaku Moscoso MD [facility] Work Phone: 08-30-2017 15:31-0400 Height 165.1 cm Kwaku Moscoso MD [facility] Work Phone: 08-30-2017 15:31-0400 Pulse (Heart Rate) 54 /min Kwaku Moscoso MD [facility] [employer] Work Phone: 08-30-2017 15:31-0400 Respiratory Rate 18 /min Kwaku Moscoso MD [facility] [employer] Work Phone: 08-30-2017 15:31-0400 Weight 81.19 kg Kwaku Moscoso MD [facility] [employer] Work Phone: 06-11-2017 10:53-0400 BMI (Body Mass Index) 29.7 kg/m2 [facility] Work Phone: 06-11-2017 10:53-0400 BP Diastolic 60 mm[Hg] [facility] Work Phone: 06-11-2017 10:53-0400 BP Systolic 142 mm[Hg] Gayelisa [facility] Work Phone: 06-11-2017 10:53-0400 Height 167.64 cm Gaye Kenroy [facility] Work Phone: 06-11-2017 10:53-0400 Pulse (Heart Rate) 54 /min Gayelisa Jasmine [facility] Work Phone: 06-11-2017 10:53-0400 Respiratory Rate 18 /min Gaye [facility] Work Phone: 06-11-2017 10:53-0400 Weight 83.46 kg Gayelisa [facility] Work Phone: 05-02-2017 12:55-0400 BMI [...] Mass Index) 30.08 kg/m2 Shaina Serna LPN [facility] Work Phone: 04-23-2017 11:140400 Body Temperature 98.7 [degF] Shaina Serna [facility]PN [place] [facility] Work Phone: 04-23-2017 11:140400 Body weight 84.55 kg Sh[facility]a [facility] Work Phone: 04-23-2017 11:14-0400 BP Diastolic 72 mm[Hg] [facility]a [facility] Work Phone: 04-23-2017 11:14-0400 BP Systolic 125 mm[Hg] Sh[facility]a [facility] Work Phone: 04-23-2017 11:140400 Height 167.64 cm Sh[facility]a [facility] Work Phone: 04-23-2017 11:14-0400 Pulse (Heart Rate) 60 /min Shaina Serna [facility]PN [place] [facility] Work Phone: 04-23-2017 11:14-0400 Pulse Oximetry 98 % Shaina Serna LPN [place] [facility] Work Phone: 04-23-2017 11:14-0400 Respiratory Rate 18 /min Shaina Serna [facility]PN [facility] Work Phone: 04-23-2017 11:14-0400 Weight 84.55 kg Marly Signs MD [facility] Work Phone: 02-06-2017 12:57-0400 Body Temperature 98.4 [degF] Shaina Serna LPN [place] [facility] Work Phone: 02-06-2017 12:57-0400 Body weight 80.92 kg Shaina Serna LPN [facility] Work Phone: 02-06-2017 12:57-0400 BP Diastolic 76 mm[Hg] Shaina Serna LPN [place] [facility] Work Phone: 02-06-2017 12:57-0400 BP Systolic 140 mm[Hg] Shaina Serna LPN [facility] Work Phone: 02-06-2017 12:57-0400 BSA (Body Surface Area) 1.91 m2 Shaina Serna LPN [facility] Work Phone: 02-06-2017 12:57-0400 Height 167.64 cm Shaina Serna LPN [facility] Work Phone: 02-06-2017 12:57-0400 Weight 80.92 kg Marly Signs MD [facility] Work Phone: 12-05-2016 12:56-0500 Pulse Oximetry 98 % Shaina Serna LPN [place] [facility] Work Phone: 11-17-2016 07:54-0500 Body surface area Derived from formula 45.87 mL/min Shaina Serna ANGELO [facility] Work Phone: 05-25-2015 14:56-0400 Heart rate 55 /min Shaina Serna LPN [facility] Work Phone: 01-12-2014 13:16-0500 Heart rate 406 ms Shaina Serna LPN [place] [facility] Work Phone: Encounters Encounter Date Encounter Type Care Provider Facility Start: 06-30-2025 ambulatory Russell Clement Facility:[facility] Start: 06-25-2025 Abena VYAS -[facility] Start: 06-23-2025 Dr. Rishi Vasquez DO -Cardiac Rehab Work Phone: Start: 06-23-2025 ambulatory Rishi Dewey y:[facility] Start: 06-19-2025 Abena VYAS -[facility] Start: 06-19-2025 End: 06-19-2025 Dr. Phong Solomon MD -Cardiovascular Services Work Phone: Start: 06-19-2025 End: 06-19-2025 ambulatory Rishi Vasquez Facility:[facility] Start: 06-16-2025 End: 06-18-[address] Rishi Vasquez DO Work Phone: -Cardiac Rehab Start: 06-16-2025 End: 06-18-2025 Dr. Rishi Vasquez DO -Cardiac Rehab Work Phone: Start: 06-15-2025 ambulatory Rishi Dewey y:[facility] Start: 06-12-2025 End: 06-17-2025 Telephone encounter Rishi Vasquez DO Work Phone: [facility] [place] Comment on above: Results ([facility] T[facility] lab results (A1C & CMP)) Start: 06-12-2025 End: 06-12-[address] Rishi Vasquez DO Work Phone: -Cardiovascular Services Start: 06-12-2025 End: 06-12-2025 Dr. Phong Solomon MD -Cardiovascular Services Work Phone: Start: 06-12-2025 End: 06-12-2025 ambulatory Rishi Vasquez Facility:[facility] Start: 06-11-2025 End: 06-11-2025 Dr. Rishi Vasquez DO Work Phone: -Emergency Department Work Phone: Start: 06-11-2025 End: 06-11-2025 Emergency department patient visit Dr. Rishi Vasquez DO Work Phone: -Emergency Department Start: 06-09-2025 End: 06-09-2025 Abena VYAS -[facility] Work Phone: Start: 06-09-2025 End: 06-09-[address] Rishi Vasquez DO Work Phone: [facility] Start: 06-05-2025 End: 06-05-2025 Ortega Yanez DO -Endoscopy Work Phone: Start: 06-05-2025 End: 06-05-[address] Rishi Vasquez DO Work Phone: -Endoscopy Start: 06-04-2025 Ortega Yanez DO -[facility] Start: 06-03-2025 Encounter for preprocedural cardiovascular examination Jarret [facility] Start: 06-01-2025 End: 06-30-2025 Dr. Phong Solomon MD -Transitional Care Unit Start: 06-01-2025 ambulatory Abena Fiore Facility:[facility] Start: 06-01-2025 End: 06-30-2025 Evaluation and management of inpatient Patel Irene Facility:[facility] Start: 06-01-2025 Dr. Christos Morrow MD -[facility] Work Phone: Start: 05-31-2025 Dr. Maddie Merchant MD - [place] [facility] Work Phone: Start: 05-30-2025 Dr. Maddie Merchant MD - [place] [facility] Work Phone: Start: 05-29-2025 Abena VYAS [facility] Start: 05-29-2025 Dr. Maddie Merchant MD - [place] [facility] Work Phone: Start: 05-28-2025 Abena VYAS [facility] Start: 05-28-2025 Dr. Maddie Merchant MD - [place] [facility] Work Phone: Start: 05-27-2025 Abena VYAS [facility] Start: 05-27-2025 Dr. Maddie Merchant MD - [place] [facility] Work Phone: Start: 05-26-2025 Dr. Russell Clement MD [facility] Start: 05-26-2025 Dr. Maddie Merchant MD [facility] Work Phone: Start: 05-25-2025 Dr. Russell Clement MD [facility] Start: 05-25-2025 ambulatory Wilberto Vázquez ility:[facility] Start: 05-25-2025 End: 06-01-2025 Evaluation and management of inpatient Dr. Rishi Vasquez DO Work Phone: -Medical Surgical 3 Start: 05-25-2025 End: 06-01-2025 Dr. Maddie Merchant MD -Intensive Care Un it Work Phone: Start: 05-25-2025 Encounter for other preprocedural examination [facility] Start: 05-24-2025 Dr. Michaela Joshua DO [facility] Work Phone: Start: 05-23-2025 Dr. Michaela Joshua DO [facility] Work Phone: Start: 05-22-2025 ambulatory Rishi Vasquez Facilit y:[facility] Start: 05-22-[address] Sunny Vasquez DO Work Phone: -Medical Surgical 3 Start: 05-22-2025 Dr. Wilberto Suazo DO -Medical Surgical 3 Work Phone: Start: 05-21-2025 Dr. Michaela Joshua DO -[facility] Work Phone: Start: 05-20-2025 Dr. Michaela Joshua DO [facility] Work Phone: Start: 05-19-2025 Dr. Michaela Joshua DO -[facility] Work Phone: Start: 05-19-2025 Dr. Jacinto Tamez DO -[facility] -PMW Start: 05-18-2025 Dr. Russell Clement MD -[facility] -[facility] Start: 05-18-2025 Dr. Jacinto Tamez DO -[facility] -PMW Start: 05-18-2025 ambulatory Rishi Dewey y:[facility] Start: 05-18-2025 End: 05-21-2025 Evaluation and management of inpatient Dr. Rishi Vasquez DO Work Phone: -Medical Surgical 3 Start: 05-18-2025 End: 05-21-2025 Dr. Maddie Merchant MD -Medical Surgical 3 Work Phone: Start: 05-13-2025 End: 05-13-2025 Abena VYAS -[facility] Work Phone: Start: 05-13-2025 End: 05-13-[address] Rishi Vasquez DO Work Phone: [facility] Work Phone: Start: 05-11-2025 ambulatory Rishi Dewey y:[facility] Start: 05-11-2025 Non-patient / Non-visit Dr. Jarret walden MD -[facility] Start: 05-11-2025 Dr. Jarret Quiles MD -[facility] Start: 05-08-2025 End: 05-08-[address] Rishi Vasquez DO Work Phone: [facility] Work Phone: Start: 05-08-2025 End: 05-08-[address] Jarret Quiles MD -Cardiovascular Services Work Phone: Start: 05-08-2025 End: 05-08-2025 Dr. Jarret Quiles MD -Cardiovascular Services Work Phone: Start: 05-07-2025 End: 05-07-2025 Patient encounter procedure Rick Bhumi Rubio BARAJAS-Andrés -[facility] Work Phone: Start: 05-07-2025 End: 05-07-2025 Patient encounter status Rick Tripathi Rubio BARAJAS-Andrés [facility] Comment on above: Vascular surgery in May Start: 05-07-2025 End: 05-07-2025 Rick Bergeron NP-Andrés -[facility] Work Phone: Start: 05-07-2025 End: 05-08-[address] 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 Rishi Vasquez DO Work Phone: [facility] Work Phone: Start: 04-27-2025 End: 04-27-[address] Ciaran Renee MD -Ultrasound [facility] Work Phone: Start: 04-27-2025 End: 04-27-2025 Dr. Ciaran Renee MD -Ultrasound [facility] Work Phone: Start: 04-27-2025 End: 04-27-2025 ambulatory Ciaran Renee Facility:[facility] Start: 04-23-2025 End: 05-18-[address] Rishi Vasquez DO Work Phone: -Cardiac Rehab Start: 04-23-[address] Rishi ponce DO -Cardiac Rehab Work Phone: Start: 04-23-2025 End: 05-18-2025 Dr. Rishi Vasquez DO -Cardiac Rehab Work Phone: Start: 04-21-[address] Rishi ponce DO -Cardiac Rehab Work Phone: Start: 04-20-2025 Non-patient / Non-visit Dr. Russell dobbs MD -[facility] Start: 04-20-2025 End: 04-20-[address] Rishi Vasquez DO Work Phone: [facility] Work Phone: Start: 04-20-2025 End: 04-20-2025 Patient encounter procedure Abena Fiore [place] -Cardiovascular Services Work Phone: Start: 04-20-2025 End: 04-20-2025 Dr. Russell Clement MD -[facility] Start: 04-20-2025 End: 04-20-2025 ambulatory Abena Fiore Facility:[facility] Start: 04-16-2025 End: 04-16-2025 Telephone encounter Rishi Vasquez DO Work Phone: [facility] Comment on above: Assisted Plan of Care Start: 04-15-2025 ambulatory Russell Clement Facility:[facility] Start: 04-15-2025 Non-patient / Non-visit Dr. Russell dobbs MD -[facility] Start: 04-15-2025 Dr. Russell Clement MD -[facility] -S Start: 04-15-2025 End: 04-15-2025 Telephone encounter Ld Artis APRN.SIX HORSE HITCH DRIVER Work Phone: [facility] Start: 04-15-2025 End: 04-15-2025 Admission to same day surgery center Dr. Russell Clement MD -Extrusion Press Adjuster/Special Procedures Work Phone: Start: 04-15-2025 End: 04-15-2025 Dr. Russell Clement MD -Extrusion Press Adjuster/Special Procedures Work Phone: Start: 04-15-2025 End: 04-15-[address] Rishi Vasquez DO Work Phone: [facility] Work Phone: Start: 04-07-2025 End: 04-21-2025 ambulatory Rishi Vasquez DO Work Phone: [facility] Comment on above: Diabetes Start: 04-03-2025 End: 04-03-2025 Patient encounter procedure Abena Fiore [place] -[facility] Work Phone: Start: 04-03-2025 End: 04-03-2025 Abena VYAS -[facility] Work Phone: Start: 04-03-2025 End: 04-03-[address] Rishi Vasquez DO Work Phone: [facility] Work Phone: Start: 03-27-2025 End: 03-27-2025 Patient encounter procedure Yumiko Whitehead APRN.SIX HORSE HITCH DRIVER Work Phone: [facility] Comment on above: Hospital discharge f ollow-up (Primary Dx); Diabetic foot ulcer associated with type 2 diabetes mellitus, unspecified laterality, unspecified part of foot, unspecified ulcer stage (HCC); Abnormality of gait; Falling episodes Start: 03-27-2025 End: 03-27-2025 ambulatory RISHI VASQUEZ Facility:[facility] Start: 03-26-2025 End: 03-26-2025 Telephone encounter Rishi Vasquez DO Work Phone: [facility] [place] Comment on above: Patient Update Start: 03-24-2025 End: 03-25-2025 Telephone encounter Rishi Vasquez DO Work Phone: [facility] [place] Comment on above: [facility] HH PT POC Start: 03-23-2025 End: 03-24-2025 Telephone encounter Rishi Vasquez DO Work Phone: [facility] Comment on above: HH Nursing POC Start: 03-20-2025 End: 03-23-2025 Telephone encounter Rishi Vasquez DO Work Phone: [facility] Comment on above: Orders Start: 03-19-2025 End: 03-19-[address] Phong Solomon MD -Cat Scan [facility] Work Phone: Start: 03-19-2025 End: 04-18-[address] Rishi Vasquez DO -Cardiac Rehab Work Phone: Start: 03-19-[address] Rishi ponce DO -Cardiac Rehab Work Phone: Start: 03-19-2025 End: 04-18-2025 Dr. Rishi Vasquez DO -Cardiac Rehab Work Phone: Start: 03-19-2025 End: 04-18-[address] Rishi Vasquez DO Work Phone: [facility] Work Phone: Start: 03-19-2025 End: 03-19-2025 ambulatory Rishi Vasquez Facility:[facility] Start: 03-13-2025 Non-patient / Non-visit Abena Fiore [facility] Start: 03-13-2025 Abena Fiore [facility] Start: 03-11-2025 End: 03-20-2025 Dr. Phong Solomon MD -Transitional Care Unit Start: 03-11-2025 ambulatory Abena Fiore Facility:[facility] Start: 03-11-2025 End: 03-20-2025 Evaluation and management of inpatient Dr. Phong Solomon MD -Transitional Care Unit Start: 03-11-2025 Non-patient / Non-visit Dr. Broderick Dempsey MD -[place] [facility] Work Phone: Start: 03-11-2025 Dr. Broderick Dempsey MD -[facility] In[facility] Physicians Work Phone: Start: 03-10-2025 Non-patient / Non-visit Dr. Broderick Dempsey MD -[place] [facility] Work Phone: Start: 03-10-2025 Dr. Broderick Dempsey MD -[facility] Inpatient Physicians Work Phone: Start: 03-10-2025 Non-patient / Non-visit Abena VYAS [facility] Start: 03-10-2025 Abena VYAS [facility] Start: 03-09-2025 Non-patient / Non-visit Dr. Russell dobbs MD -[facility] Start: 03-09-2025 Dr. Russell Clement MD -[facility] Start: 03-08-2025 Non-patient / Non-visit Dr. Broderick Dempsey MD -[place] [facility] Work Phone: Start: 03-08-2025 Dr. Broderick Dempsey MD -[facility] Inpatient [facility]icians Work Phone: Start: 03-07-2025 ambulatory Maddie Merchant Facility :[facility] Start: 03-07-2025 End: 03-11-2025 Evaluation and management of inpatient Dr. Maddie Merchant MD -Medical Surgical 3 Work Phone: Start: 03-07-2025 End: 03-11-2025 Dr. Broderick Dempsey MD -Medical Surgical 3 Work Phone: Start: 02-26-2025 End: 02-26-[address] Rishi Vasquez DO Work Phone: [facility] Work Phone: Start: 02-26-2025 End: 02-26-[address] Patel Irene DPM -Laboratory, Specimen Work Phone: Start: 02-26-2025 End: 02-26-2025 Dr. Patel Irene DPAlexandria -Laboratory Specim en Work Phone: Start: 02-26-2025 End: 02-26-2025 ambulatory Rishi Vasquez Facility:[facility] Start: 02-17-2025 End: 03-18-[address] Rishi Vasquez DO -Cardiac Rehab Work Phone: Start: 02-17-[address] Rishi ponce DO -Cardiac Rehab Work Phone: Start: 02-17-2025 End: 03-18-2025 Dr. Rishi Vasquez DO -Cardiac Rehab Work Phone: Start: 02-17-2025 End: 03-18-2025 ambulatory Rishi Vasquez Facility:[facility] Start: 02-16-2025 End: 02-16-[address] Rishi Vasquez DO Work Phone: [facility] Work Phone: Start: 02-16-2025 End: 02-16-[address] Rishi Vasquez DO -Laboratory, Specimen Work Phone: Start: 02-16-2025 End: 02-16-2025 Ciarna Berry DPAlexandria -Laboratory Specime n Work Phone: Start: 02-16-2025 End: 02-16-2025 ambulatory Rishi Vasquez Facility:[facility] Start: 02-05-2025 End: 02-16-[address] Rishi Vasquez DO Work Phone: [facility] Work Phone: Start: 02-05-2025 End: 02-16-[address] Rishi Vasquez DO -Cardiac Rehab Work Phone: Start: 02-05-2025 End: 02-16-2025 Dr. Rishi Vasquez DO -Cardiac Rehab Work Phone: Start: 01-06-2025 ambulatory Rishi Vasquez Facilit y:[facility] Start: 01-06-2025 Non-patient / Non-visit Dr. Russell dobbs MD -[facility] Start: 01-06-2025 End: 01-06-[address] Brandon Membreno DPM -Cardiovascular Services Work Phone: Start: 01-06-2025 End: 01-06-2025 ambulatory Rishi Vasquez Facility:[facility] Start: 12-30-2024 End: 12-30-[address] Patel Irene DPM -Laboratory, Specimen Work Phone: Start: 12-30-2024 End: 12-30-2024 ambulatory Rishi Vasquez Facility:[facility] Start: 12-25-2024 End: 12-26-2024 Refill Rishi Vasquez DO Work Phone: [facility] Comment on above: Refill Request Start: 12-23-2024 End: 01-16-[address] Rishi Vasquez DO -Cardiac Rehab Work Phone: Start: 12-23-2024 End: 01-16-2025 ambulatory Rishi Vasquez Facility:[facility] Start: 12-18-2024 End: 12-19-2024 ambulatory Rishi Vasquez Facility:[facility] Start: 12-18-2024 End: 12-19-[address] Rishi Vasquez DO -Cardiac Rehab Work Phone: Start: 12-17-2024 End: 12-17-[address] Brandon Membreno DPM -Laboratory, Specimen Work Phone: Start: 12-17-2024 End: 12-17-2024 ambulatory Rishi Vasquez Facility:[facility] Start: 12-05-2024 End: 12-05-2024 Patient encounter procedure Rishi Vasquez DO Work Phone: [facility] Comment on above: Diabetes mellitus ty [...] Start: 12-05-2024 End: 12-05-2024 ambulatory RISHI VASQUEZ Facility:[facility] Start: 12-01-2024 End: 12-01-2024 ambulatory RISHI L VASQUEZ Facility:[facility] Start: 11-29-2024 ambulatory Rishi Vasquez Facilit y:[facility] Start: 11-18-2024 End: 11-18-2024 ambulatory Rishi Vasquez Facility:[facility] Start: 11-18-2024 End: 11-18-[address] Rishi Vasquez DO -Cardiac Rehab Work Phone: Start: 10-14-2024 End: 10-18-2024 ambulatory Rishi Vasquez Facility:[facility] Start: 09-18-2024 End: 09-18-2024 ambulatory Rishi Vasquez Facility:[facility] Start: 09-10-2024 End: 09-15-2024 Telephone encounter Rishi L Vasquez DO Work Phone: [facility] Comment on above: Patient Question Start: 09-05-2024 End: 09-05-2024 Patient encounter procedure [facility] [place] Work Phone: [facility] Start: 09-05-2024 End: 09-05-2024 ambulatory Immunization Clinic Nurse [place] Work Phone: [facility] Start: 08-18-2024 End: 08-19-2024 Telephone encounter Rishi L Vasquez DO Work Phone: [facility] Comment on above: Patient Question (Fi sh oil - [place] 3) Start: 08-16-2024 End: 08-18-2024 ambulatory Rishi L Vasquez DO Work Phone: [facility] Comment on above: OMEGA 3 FROM FISH OI L Start: 08-14-2024 End: 08-18-2024 ambulatory Rishi Vasquez Facility:[facility] Start: 08-08-2024 End: 08-12-2024 Telephone encounter Rishi L Vasquez DO Work Phone: [facility] Comment on above: Patient Update Start: 08-01-2024 End: 08-01-2024 ambulatory Rishi Vasquez Facility:[facility] Start: 07-17-2024 End: 07-19-2024 ambulatory Rishi Vasquez Facility:[facility] Start: 06-13-2024 Telephone encounter Rishi julian DO Work Phone: [facility] Start: 06-10-2024 ambulatory No P[facility] S[facility] OPERATIONS [facility] [place] Start: 06-10-2024 Patient encounter procedure No Pcp SORT OPERATIONS SUPERVISOR [facility] [place] Start: 06-04-2024 Documentation procedure Mammog rain Coordinator [facility] Department Start: 06-04-2024 Letter encounter Mammography Coordinator [facility] Department Start: 06-04-2024 Telephone encounter Rishi julian DO Work Phone: [facility] Comment on above: Results Start: 06-04-2024 End: 06-04-2024 Patient encounter procedure Rishi Vasquez DO Work Phone: [facility] Comment on above: Chronic midline low back [...] Multiple thyroid nodules Start: 06-03-2024 End: 06-03-2024 Subsequent hospital visit by physician Screen Mammo [facility] Comment on above: Encounter for screen ing mammogram for malignant neoplasm of breast [Z12.31] Start: 05-19-2024 Telephone encounter Rishi julian DO Work Phone: [facility] Comment on above: Orders Start: 05-18-2024 ambulatory Rishi contreras DO Work Phone: [facility] Comment on above: Blood work Start: 03-22-2024 Refill Rishi contreras DO Work Phone: [facility] Comment on above: Refill Request Start: 03-20-2024 End: 03-20-2024 ambulatory Anselmo Tejinder PT Work Phone: [facility] Comment on above: 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 Rishi Vasquez Work Phone: [facility] Work Phone: Start: 03-18-2024 End: 03-18-[address] Rishi Vasquez Work Phone: [facility]-Cardiac Rehab Work Phone: Start: 03-13-[address] Jim Vasquez Work Phone: [facility]-Cardiac Rehab Work Phone: Start: 03-11-2024 Non-patient / Non-visit Dr. Marcie Vasquez Work Phone: [facility] Start: 03-11-2024 End: 03-11-[address] Rishi Vasquez Work Phone: [facility] Work Phone: Start: 03-11-2024 End: 03-11-[address] 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 Rishi Vasquez Work Phone: [facility] Work Phone: Start: 02-14-2024 End: 02-17-[address] Rishi Vasquez Work Phone: [facility] Work Phone: Start: 02-07-2024 End: 02-07-[address] 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) Start: 01-28-2024 Refill Clary Andres APRN.[employer] H[employer]SE HITCH DRIVER Work Phone: [facility] Comment on above: Refill Request Start: 01-23-2024 End: 01-23-2024 ambulatory Anselmo Golias PT Work Phone: [facility] Comment on above: 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) Start: 01-17-2024 End: 01-17-2024 ambulatory [facility] Work Phone: Start: 01-17-2024 End: 01-17-2024 Discharged Recurring [facility] Work Phone: Start: 01-15-2024 End: 01-15-2024 ambulatory Anselmo Golias PT Work Phone: [facility] Comment on above: Chronic midline low back pain without sciatica Start: 01-14-2024 ambulatory Rishi contreras DO Work Phone: [facility] Start: 01-14-2024 Patient encounter procedure Rishi Vasquez DO Work Phone: [facility] Comment on above: APPOINTMENT WITH GEN PEPPER SURGEON Start: 01-10-2024 Telephone encounter Rishi julian DO Work Phone: [facility] Comment on above: Results Start: 12-27-2023 ambulatory Rishi contreras DO Work Phone: [facility] Comment on above: MEDICATION QUESTION Start: 12-27-2023 Telephone encounter Rishi julian DO Work Phone: [facility] Comment on above: Patient Update Start: 12-20-2023 End: 12-20-2023 Subsequent hospital visit by physician Us [facility] 1 Work Phone: Radiology Comment on above: Multiple thyroid nod ules [E04.2] Start: 12-18-2023 End: 12-19-2023 Discharged Recurring [facility] Work Phone: Start: 12-10-2023 End: 12-10-2023 Subsequent hospital visit by physician [facility] Work Phone: Radiology Comment on above: Chronic midline low back pain without sciatica [M54.50, G89.29] Start: 11-15-2023 End: 11-18-2023 ambulatory [facility] Work Phone: Start: 11-15-2023 End: 11-18-2023 Discharged Recurring [facility] Work Phone: Start: 10-18-2023 End: 10-18-[address] Rishi Vasquez Work Phone: [facility] Work Phone: Start: 10-18-2023 End: 10-18-[address] Rishi Vasquez Work Phone: [facility] Work Phone: Start: 10-03-2023 Refill Rishi contreras DO Work Phone: [facility] Comment on above: Refill Request Start: 09-18-2023 End: 09-18-[address] Rishi Vasquez Work Phone: [facility] Work Phone: Start: 09-18-2023 End: 09-18-[address] Rishi Vasquez Work Phone: [facility] Work Phone: Start: 09-13-[address] Jim Vasquez Work Phone: [facility] Work Phone: Start: 08-31-2023 End: 08-31-2023 ambulatory [facility] [place] Work Phone: [facility] Start: 08-18-2023 Telephone encounter Rishi julian DO Work Phone: [facility] Comment on above: Results Start: 08-16-2023 End: 08-16-[address] Rishi Vasquez Work Phone: [facility] Work Phone: Start: 08-16-2023 End: 08-18-[address] Rishi Vasquez Work Phone: [facility] Work Phone: Start: 08-16-2023 End: 08-18-[address] Rishi Vasquez Work Phone: [facility] Work Phone: Start: 07-31-2023 Telephone encounter Rishi julian DO Work Phone: [facility] Comment on above: Results Start: 07-31-[address] Jim Vasquez Work Phone: [facility] Work Phone: Start: 07-26-2023 End: 07-26-[address] Rishi Vasquez Work Phone: [facility] Work Phone: Start: 07-26-2023 End: 07-26-[address] Rishi Vasquez Work Phone: [facility], Specimen Work Phone: Start: 07-19-2023 End: 07-19-[address] Rishi Vasquez Work Phone: [facility] Work Phone: Start: 07-19-2023 End: 07-19-[address] Rishi Vasquez Work Phone: [facility] Work Phone: Start: 07-10-2023 Telephone encounter Danyelle allen PA-C Work Phone: [facility] [place] Comment on above: Results Start: 07-10-2023 End: 07-10-2023 Subsequent hospital visit by physician Diagnostic Mammo [facility] Mamm[facility] Comment on above: Abnormal mammogram [ R92.8] Start: 07-03-2023 End: 07-03-[address] Rishi Vasquez Work Phone: [facility] Work Phone: Start: 06-14-2023 End: 06-18-[address] Rishi Vasquez Work Phone: [facility] Work Phone: Start: 06-14-2023 End: 06-18-[address] Rishi Vasquez Work Phone: [facility] Work Phone: Start: 06-14-[address] Jim Vasquez Work Phone: [facility] Work Phone: Start: 06-12-2023 Non-patient / Non-visit Dr. Marcie Vasquez Work Phone: [facility] Start: 06-12-2023 End: 06-12-[address] Rishi Vasquez Work Phone: [facility] Work Phone: Start: 06-12-2023 End: 06-12-[address] 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); CKD stage G3b/A1, GFR 30-44 and albumin creatinine ratio <30 mg/g (HCC); Dyslipidemia (high LDL; low HDL); Vitamin D deficiency; Multinodular thyroid; Essential hypertension; Arthritis, multiple joint involvement Start: 05-29-2023 Documentation procedure Mammog rain Coordinator [facility] Start: 05-29-2023 Letter encounter Mammography Coordinator [facility] Department Start: 05-29-2023 Telephone encounter Danyelle allen PA-C Work Phone: [facility] Comment on above: Results Start: 05-29-2023 End: 05-29-2023 Subsequent hospital visit by physician Screen Mammo [facility] Comment on above: Encounter for screen ing mammogram for malignant neoplasm of breast [Z12.31] Start: 05-27-2023 Refill Rishi contreras DO Work Phone: [facility] Comment on above: Refill Request Start: 05-17-2023 End: 05-18-[address] Rishi Vasquez Work Phone: [facility] Work Phone: Start: 05-17-2023 End: 05-18-[address] Rishi Vasquez Work Phone: [facility] Work Phone: Start: 04-20-2023 End: 04-20-[address] Rishi Vasquez Work Phone: [facility] [facility] Work Phone: Start: 04-17-2023 End: 04-18-2023 ambulatory [facility] Work Phone: Start: 04-17-2023 End: 04-18-2023 Discharged Recurring [facility] Start: 03-15-2023 End: 03-18-2023 ambulatory [facility] Work Phone: Start: 03-15-2023 End: 03-18-2023 Discharged Recurring [facility] Start: 03-12-2023 Telephone encounter Rishi julian DO Work Phone: [facility] Comment on above: Release Of Medical R ecords Start: 02-27-2023 ambulatory Rishi Wright son DO Work Phone: Internal [facility] Start: 02-15-2023 End: 02-16-[address] Rishi Vasquez Work Phone: [facility] Work Phone: Start: 02-15-2023 End: 02-16-[address] Rishi Vasquez Work Phone: [facility] Start: 02-05-2023 ambulatory Rishi Wright son DO Work Phone: [facility] Comment on above: MAMOGRAM Start: 01-22-2023 Telephone encounter Rishi julian DO Work Phone: [facility] Comment on above: Appointment; Phuong VYAS Start: 01-16-2023 End: 01-16-[address] Rishi Vasquez Work Phone: [facility] Work Phone: Start: 01-16-2023 End: 01-16-[address] Rishi Vasquez Work Phone: [facility] Start: 01-08-2023 Brooke Andres APRN.[employer] HITCH DRIVER Work Phone: [facility] Comment on above: Refill Request Start: 01-04-2023 Telephone encounter Rishi julian DO Work Phone: [facility] Comment on above: Results Start: 12-29-2022 End: 12-29-2022 Subsequent hospital visit by physician [facility] Work Phone: Nuclear Medicine Comment on above: Abnormal thyroid fun ction test [R94.6] Start: 12-28-2022 End: 12-28-2022 Subsequent hospital visit by physician [facility] Work Phone: Nuclear Medicine Comment on above: Abnormal thyroid fun ction test [R94.6] Start: 12-26-2022 Telephone encounter Rishi julian DO Work Phone: [facility] Comment on above: Results Start: 12-20-2022 End: 12-20-2022 Subsequent hospital visit by physician [facility] Work Phone: Radiology Comment on above: Abnormal thyroid fun ction test [R94.6] Start: 12-19-2022 End: 12-19-[address] Rishi Vasquez Work Phone: [facility] Work Phone: Start: 12-19-2022 End: 12-19-[address] Rishi Vasquez Work Phone: [facility] Start: 12-07-2022 Telephone encounter Rishi julian DO Work Phone: [facility] Comment on above: testing question Start: 12-05-2022 End: 12-05-2022 Patient encounter procedure Rishi Vasquez DO Work Phone: [facility] Comment on above: Diabetes mellitus ty pe 2 with peripheral artery disease (HCC) (Primary Dx); Peripheral vascular occlusive disease (HCC); Dyslipidemia (high LDL; low HDL); Essential hypertension; Dizziness; Carotid atherosclerosis, bilateral; Biceps rupture, proximal, left, initial encounter; Chronic kidney disease, stage 3a (HCC) Start: 11-16-2022 End: 11-18-[address] Rishi Vasquez Work Phone: [facility] Work Phone: Start: 11-16-2022 End: 11-18-[address] Rishi Vasquez Work Phone: [facility] Start: 11-02-[address] Jim Vasquez Work Phone: [facility] Start: 10-27-2022 Non-patient / Non-visit Dr. Marcie Vasquez Work Phone: [facility] Start: 10-27-2022 End: 10-27-[address] Rishi Vasquez Work Phone: [facility] Work Phone: Start: 10-27-2022 End: 10-27-[address] Rishi Vasquez Work Phone: [facility] Start: 10-17-2022 End: 10-18-[address] Rishi Vasquez Work Phone: [facility] Work Phone: Start: 10-17-2022 End: 10-18-[address] Rishi Vasquez Work Phone: [facility] Start: 09-23-2022 End: 09-23-2022 Patient encounter procedure Camille Mitchell PA-C Work Phone: [facility] Comment on above: Acute cystitis with hematuria (Primary Dx) Start: 09-14-2022 End: 09-18-[address] Rishi Vasquez Work Phone: [facility] Work Phone: Start: 09-14-2022 End: 09-18-[address] Rishi Vasquez Work Phone: [facility] Start: 09-09-2022 End: 09-09-2022 ambulatory [facility] [place] Work Phone: [facility] Comment on above: Arrived Start: 09-06-2022 Telephone encounter Rishi julian DO Work Phone: [facility] Comment on above: Results Start: 08-17-2022 End: 08-18-[address] Rishi Vasquez Work Phone: [facility] Work Phone: Start: 08-17-2022 End: 08-18-[address] Rishi Vasquez Work Phone: [facility] Start: 08-15-2022 End: 08-15-2022 Subsequent hospital visit by physician [facility] Work Phone: Radiology Comment on above: Injury of sternum, i nitial encounter [S29.9XXA] Start: 08-15-2022 End: 08-15-2022 Patient encounter procedure Camille Mitchell PA-C Work Phone: [facility] Comment on above: Injury of sternum, i nitial encounter (Primary Dx); Wrist injury, right, initial encounter Start: 08-08-2022 End: 08-08-[address] Rishi Vasquez Work Phone: [facility] [facility] Start: 07-18-2022 End: 07-19-[address] Rishi Vasquez Work Phone: [facility] Work Phone: Start: 07-18-2022 End: 07-19-[address] Rishi Vasquez Work Phone: [facility] Start: 06-29-2022 End: 06-29-[address] Rishi Vasquez Work Phone: [facility] Start: 06-22-2022 Non-patient / Non-visit Dr. Marcie Vasquez Work Phone: [facility] Start: 06-22-2022 End: 06-22-[address] Rishi Vasquez Work Phone: [facility] Start: 06-17-2022 End: 06-17-2022 Subsequent hospital visit by physician Xr [facility] Work Phone: Radiology Comment on above: Acute pain of right shoulder [M25.511] Start: 06-17-2022 End: 06-17-2022 Patient encounter procedure Kena Sims APRN.[employer] HITCH DRIVER Work Phone: [facility] Comment on above: Acute pain of right shoulder (Primary Dx) Start: 06-15-2022 End: 06-18-2022 Discharged Recurring [facility] Start: 06-05-2022 Documentation procedure Mammog rain Coordinator [facility] Start: 06-05-2022 Letter encounter Mammography Coordinator [facility] Department Start: 06-05-2022 Telephone encounter Yani Cid APRN.[employer] H[employer]SE HITCH DRIVER Work Phone: [facility] Comment on above: Results; Appointment Start: 06-05-2022 End: 06-05-2022 Subsequent hospital visit by physician Screen Mammo [facility] Comment on above: Encounter for screen ing mammogram for malignant neoplasm of breast [Z12.31] Start: 05-31-2022 End: 05-31-2022 Patient encounter procedure Rishi Vasquez DO Work Phone: [facility] Comment on above: Diabetes mellitus ty pe 2 with peripheral artery disease (HCC) (Primary Dx); Peripheral vascular occlusive disease (HCC); Vitamin D deficiency; Stage 3 chronic kidney disease, unspecified whether stage 3a or 3b CKD (HCC); Essential hypertension; Dyslipidemia (high LDL; low HDL); Arthritis, multiple joint involvement; Coronary artery disease involving [place] heart, unspecified vessel or lesion type, unspecified whether angina present; Fatigue, unspecified type Start: 05-24-2022 Telephone encounter Rishi julian DO Work Phone: General Surgery Comment on above: Outpatient [place] [facility] Start: 05-18-2022 End: 05-18-2022 Discharged Recurring [facility] Start: 05-01-2022 Refill Rishi Wright son DO Work Phone: [facility] Comment on above: Refill Request Start: 04-25-2022 ambulatory Rishi contreras DO Work Phone: [facility] Comment on above: BLOOD WORK Start: 04-21-2022 Refill Yani mcclure SORT OPERATIONS SUPERVISOR.[employer]SE HITCH DRIVER Work Phone: [facility] Comment on above: Refill Request Start: 04-18-2022 End: 04-18-[address] Rishi Vasquez Work Phone: [facility] Start: 03-22-2022 Refill Rishi Wright son DO Work Phone: [facility] Comment on above: Refill Request Start: 03-16-2022 End: 03-18-[address] Rishi Vasquez Work Phone: [facility] Start: 02-24-2022 Telephone encounter Yani Cid APRN.[employer] H[employer]SE HITCH DRIVER Work Phone: [facility] Comment on above: Results Start: 02-16-2022 End: 02-16-[address] Rishi Vasquez Work Phone: [facility] Start: 02-07-2022 End: 02-07-[address] Rishi Vasquez Work Phone: [facility] Start: 01-20-2022 Non-patient / Non-visit Dr. Marcie Vasquez Work Phone: [facility] Start: 01-20-2022 End: 01-20-2022 Admission to same day surgery center Dr. Rishi Vasquez Work Phone: [facility] Start: 01-10-2022 End: 01-16-[address] Rishi Vasquez Work Phone: [facility] Start: 12-29-2021 End: 12-29-[address] Rishi Vasquez Work Phone: [facility] Start: 12-15-2021 End: 12-19-[address] Rishi Vasquez Work Phone: [facility] Start: 11-17-2021 End: 11-18-[address] [facility] Date Procedure Procedure Detail Performing Clinician Start: 06-23-2025 Blood count smear mcrscp w/mnl difrntl wbc count Dr. Rishi Vasquez DO Work Phone: Start: 06-23-[address] Jim Vasquez DO Work Phone: Start: 06-23-2025 Mean corpuscular hemoglobin concentration determination Dr. Rishi Vasquez DO Work Phone: Start: 06-23-2025 Nucleated red blood cell count procedure Dr. Rishi Vasquez DO Work Phone: Start: 06-23-2025 Platelet mean volume determination Dr. Rishi Vasquez DO Work Phone: Start: 06-16-2025 Measurement of occult blood in stool specimen using immunoassay Dr. Rishi Vasquez DO Work Phone: Start: 06-16-2025 Blood count smear mcrscp w/mnl difrntl wbc count Dr. Rishi Vasquez DO Work Phone: Start: 06-16-[address] Jim Vasquez DO Work Phone: Start: 06-16-2025 Mean corpuscular hemoglobin concentration determination Dr. Rishi Vasquez DO Work Phone: Start: 06-16-2025 Nucleated red blood cell count procedure Dr. Rishi Vasquez DO Work Phone: Start: 06-16-2025 Platelet mean volume determination Dr. Rishi Vasquez DO Work Phone: Start: 06-12-2025 Hemoglobin A1c/Hemoglobin.total in Blood [facility] Provider Start: 06-11-2025 X-ray of chest, PA and lateral views Dr. Rishi Vasquez DO Work Phone: Start: 06-11-2025 Blood count smear mcrscp w/mnl difrntl wbc count Dr. Rishi Vasquez DO Work Phone: Start: 06-11-[address] Jim Vasquez DO Work Phone: Start: 06-11-2025 Mean corpuscular hemoglobin concentration determination Dr. Rishi Vasquez DO Work Phone: Start: 06-11-2025 Nucleated red blood cell count procedure Dr. Rishi Vasquez DO Work Phone: Start: 06-11-2025 Platelet mean volume determination Dr. Rishi Vasquez DO Work Phone: Start: 06-10-2025 X-ray of ankle, three or more views Dr. Rishi Vasquez DO Work Phone: Start: 06-10-[address] Rishi Vasquez DO Work Phone: Start: 06-10-[address] Rishi Vasquez DO Work Phone: Start: 06-10-[address] Sunny Vasquez DO Work Phone: Start: 06-10-[address] Rishi Vasquez DO Work Phone: Start: 06-10-2025 End: 06-10-2025 Microbial culture, routine Dr. Rishi Vasquez DO Work Phone: Start: 06-10-[address] Rishi Vasquez DO Work Phone: Start: 06-10-[address] Rishi Vasquez DO Work Phone: Start: 06-10-[address] Rishi Vasquez DO Work Phone: Start: 06-10-2025 Blood count smear mcrscp w/mnl difrntl wbc count Dr. Rishi Vasquez DO Work Phone: Start: 06-10-[address] Jim Vasquez DO Work Phone: Start: 06-10-2025 Mean corpuscular hemoglobin concentration determination Dr. Rishi Vasquez DO Work Phone: Start: 06-10-2025 Nucleated red blood cell count procedure Dr. Rishi Vasquez DO Work Phone: Start: 06-10-2025 Platelet mean volume determination Dr. Rishi Vasquez DO Work Phone: Start: 06-10-2025 Urine microscopy: red cells Dr. Rishi Vasquez DO Work Phone: Start: 06-10-2025 Urnls dip stick/tablet reagent auto microscopy Dr. Rishi Vasquez DO Work Phone: Start: 06-09-2025 Blood count smear mcrscp w/mnl difrntl wbc count Dr. Rishi Vasquez DO Work Phone: Start: 06-09-[address] Jim Vasquez DO Work Phone: Start: 06-09-2025 Mean corpuscular hemoglobin concentration determination Dr. Rishi Vasquez DO Work Phone: Start: 06-09-2025 Nucleated red blood cell count procedure Dr. Rishi Vasquez DO Work Phone: Start: 06-09-2025 Platelet mean volume determination Dr. Rishi Vasquez DO Work Phone: Start: 06-05-[address] Rishi Vasquez DO Work Phone: Start: 06-03-2025 Measurement of occult blood in stool specimen using immunoassay Dr. Rishi Vasquez DO Work Phone: Start: 06-02-2025 Plain X-ray of shoulder Dr. Rishi Vasquez DO Work Phone: Start: 06-02-2025 Blood count smear mcrscp w/mnl difrntl wbc count Dr. Rishi Vasquez DO Work Phone: Start: 06-02-[address] Jim Vasquez DO Work Phone: Start: 06-02-2025 Mean corpuscular hemoglobin concentration determination Dr. Rishi Vasquez DO Work Phone: Start: 06-02-2025 Nucleated red blood cell count procedure Dr. Rishi Vasquez DO Work Phone: Start: 06-02-2025 Platelet mean volume determination Dr. Rishi Vasquez DO Work Phone: Start: 06-01-[address] Jim Vasquez DO Work Phone: Start: 06-01-2025 Mean corpuscular hemoglobin concentration determination Dr. Rishi Vasquez DO Work Phone: Start: 06-01-2025 Platelet mean volume determination Dr. Rishi Vasquez DO Work Phone: Start: 06-01-2025 Serum inorganic phosphate measurement Dr. Rishi Vasquez DO Work Phone: Start: 05-31-2025 Blood count smear mcrscp w/mnl difrntl wbc count Dr. Rishi Vasquez DO Work Phone: Start: 05-31-2025 Nucleated red blood cell count procedure Dr. Rishi Vasquez DO Work Phone: Start: 05-27-2025 Calculation of international normalized ratio Dr. Rishi Vasquez DO Work Phone: Start: 05-26-2025 Urine microscopy: red cells Dr. Rishi Vasquez DO Work Phone: Start: 05-26-2025 Urnls dip stick/tablet reagent auto microscopy Dr. Rishi Vasquez DO Work Phone: Start: 05-26-[address] Rishi Vasquez DO Work Phone: Start: 05-26-2025 Coagulation time, activated Dr. Rishi Vasquez DO Work Phone: Start: 05-26-[address] Rishi Vasquez DO Work Phone: Start: 05-26-[address] Jim Vasquez DO Work Phone: Start: 05-26-2025 Mean corpuscular hemoglobin concentration determination Dr. Rishi Vasquez DO Work Phone: Start: 05-26-2025 Platelet mean volume determination Dr. Rishi Vasquez DO Work Phone: Start: 05-22-2025 Blood count smear mcrscp w/mnl difrntl wbc count Dr. Rishi Vasquez DO Work Phone: Start: 05-22-[address] Jim Vasquez DO Work Phone: Start: 05-22-2025 Mean corpuscular hemoglobin concentration determination Dr. Rihsi Vasquez DO Work Phone: Start: 05-22-2025 Nucleated red blood cell count procedure Dr. Rishi Vasquez DO Work Phone: Start: 05-22-2025 Platelet mean volume determination Dr. Rishi Vasquez DO Work Phone: Start: 05-21-[address] Rishi Vasquez DO Work Phone: Start: 05-21-2025 Blood count smear mcrscp w/mnl difrntl wbc count Dr. Rishi Vasquez DO Work Phone: Start: 05-21-[address] Jim Vasquez DO Work Phone: Start: 05-21-2025 Mean corpuscular hemoglobin concentration determination Dr. Rishi Vasquez DO Work Phone: Start: 05-21-2025 Nucleated red blood cell count procedure Dr. Rishi Vasquez DO Work Phone: Start: 05-21-2025 Platelet mean volume determination Dr. Rishi Vasquez DO Work Phone: Start: 05-20-[address] Rishi Vasquez DO Work Phone: Start: 05-20-[address] Rishi Vasquez DO Work Phone: Start: 05-20-[address] Rishi Vasquez DO Work Phone: Start: 05-20-[address] Rishi Vasquez DO Work Phone: Start: 05-20-2025 Microbial culture, routine Dr. Rishi Vasquez DO Work Phone: Start: 05-20-[address] Rishi Vasquez DO Work Phone: Start: 05-19-2025 Serum inorganic phosphate measurement Dr. Rishi Vasquez DO Work Phone: Start: 05-18-[address]25 B[address] nucleic acid assay Dr[address] Rishi Vasquez DO Work Phone: Start: 05-18-[address] Rishi Vasquez DO Work Phone: Start: 05-18-2025 End: 05-18-2025 Microbial culture, routine Dr. Rishi Vasquez DO Work Phone: Start: 05-18-[address] Rishi Vasquez DO Work Phone: Start: 05-18-2025 X-ray of ankle, three or more views Dr. Rishi Vasquez DO Work Phone: Start: 05-18-[address] Rishi Vasquez DO Work Phone: Start: 05-18-2025 CT angiography of chest with contrast Dr. Rishi Vasquez DO Work Phone: Start: 05-18-2025 CT of abdomen and pelvis without contrast Dr. Rishi Vasquez DO Work Phone: Start: 05-18-2025 Blood count smear mcrscp w/mnl difrntl wbc count Dr. Rishi Vasquez DO Work Phone: Start: 05-18-2025 Calculation of international normalized ratio Dr. Rishi Vasquez DO Work Phone: Start: 05-18-[address] Jim Vasquez DO Work Phone: Start: 05-18-2025 Mean corpuscular hemoglobin concentration determination Dr. Rishi Vasquez DO Work Phone: Start: 05-18-2025 Nucleated red blood cell count procedure Dr. Rishi Vasquez DO Work Phone: Start: 05-18-2025 Platelet mean volume determination Dr. Rishi Vasquez DO Work Phone: Start: 05-18-2025 Urine microscopy: red cells Dr. Rishi Vasquez DO Work Phone: Start: 05-18-2025 Urnls dip stick/tablet reagent auto microscopy Dr. Rishi Vasquez DO Work Phone: Start: 05-17-2025 Plain chest X-ray Dr. Rishi Vasquez DO Work Phone: Start: 05-17-2025 X-ray of foot, three or more views Dr. Rishi Vasquez DO Work Phone: Start: 05-17-2025 End: 05-17-[address] Rishi Vasquez DO Work Phone: Start: 05-17-[address] Jim Vasquez DO Work Phone: Start: 05-17-2025 Mean corpuscular hemoglobin concentration determination Dr. Rishi Vasquez DO Work Phone: Start: 05-17-2025 Nucleated red blood cell count procedure Dr. Rishi Vasquez DO Work Phone: Start: 05-17-2025 Platelet mean volume determination Dr. Rishi Vasquez DO Work Phone: Start: 05-17-2025 Serum inorganic phosphate measurement Dr. Rishi Vasquez DO Work Phone: Start: 05-17-[address] Rishi Vasquez DO Work Phone: Start: 05-08-2025 Cardiovascular stress test using pharmacologic stress agent Dr. Rishi Vasquez DO Work Phone: Start: 04-27-2025 US scan of thyroid Dr. Rishi Vasquez DO Work Phone: Start: 04-15-[address] Jim Vasquez DO Work Phone: Start: 04-15-2025 Mean corpuscular hemoglobin concentration determination Dr. Rishi Vasquez DO Work Phone: Start: 04-15-2025 Platelet mean volume determination Dr. Rishi Vasquez DO Work Phone: Start: 03-19-2025 Measurement of occult blood in stool specimen using immunoassay Dr. Rishi Vasquez DO Work Phone: Start: 03-19-2025 CT of abdominal aorta with contrast Dr. Rishi Vasquez DO Work Phone: Start: 03-19-2025 Blood count smear mcrscp w/mnl difrntl wbc count Dr. Rishi Vasquez DO Work Phone: Start: 03-19-[address] Jim Vasquez DO Work Phone: Start: 03-19-2025 Mean corpuscular hemoglobin concentration determination Dr. Rishi Vasquez DO Work Phone: Start: 03-19-2025 Nucleated red blood cell count procedure Dr. Rishi Vasquez DO Work Phone: Start: 03-19-2025 Platelet mean volume determination Dr. Rishi Vasquez DO Work Phone: Start: 03-13-[address] Rishi Vasquez DO Work Phone: Start: 03-13-2025 Total cholesterol:HDL ratio measurement Dr. Rishi Vasquez DO Work Phone: Start: 03-11-2025 Blood count smear mcrscp w/mnl difrntl wbc count Dr. Rishi Vasquez DO Work Phone: Start: 03-11-[address] Jim Vasquez DO Work Phone: Start: 03-11-2025 Mean [...] Test not performed Start: 03-07-2025 Urine microscopy: red cells Dr. Rishi Vasquez DO Work Phone: Start: 03-07-2025 Urnls dip stick/tablet reagent auto microscopy Dr. Rishi Vasquez DO Work Phone: Start: 03-07-2025 Plain chest X-ray Dr. Rishi Vasquez DO Work Phone: Start: 03-07-2025 Serum inorganic phosphate measurement Dr. Rishi Vasquez DO Work Phone: Start: 03-07-2025 Measurement of occult blood in stool specimen using immunoassay Dr. Rishi Vasquez DO Work Phone: Start: 03-07-[address] Rishi Vasquez DO Work Phone: Start: 03-07-2025 Plain x-ray of pelvis and lower extremity Dr. Rishi Vasquez DO Work Phone: Start: 02-26-[address] Rishi Vasquez DO Work Phone: Start: 02-26-[address] Rishi Vasquez DO Work Phone: Start: 02-26-2025 Microbial culture, routine Dr. Rishi Vasquez DO Work Phone: Start: 02-16-[address] Rishi Vasquez DO Work Phone: Start: 02-16-2025 End: 02-16-2025 Microbial culture, routine Dr. Rishi Vasquez DO Work Phone: Start: 02-03-[address] Rishi Vasquez DO Work Phone: Start: 02-03-2025 Microbial culture, routine Dr. Rishi Vasquez DO Work Phone: Start: 12-31-[address] Rishi Vasquez DO Work Phone: Start: 12-31-[address] Rishi Vasquez DO Work Phone: Start: 12-31-2024 Microbial culture, routine Dr. Rishi Vasquez DO Work Phone: Start: 12-30-[address] Rishi Vasquez DO Work Phone: Start: 12-30-2024 Wound microscopy, culture and sensitivities Dr. Rishi Vasquez DO Work Phone: Start: 12-10-2023 Radex spine lumbosacral 2/3 views Rishi Vasquez DO Work Phone: Start: 08-31-2023 INFLUENZA VACCINE, PRSV FREE, AGE 65+ YR, HIGH DOSE, QUADRIVALENT [...] Rishi Vasquez Work Phone: Start: 07-26-2023 Microscopic observation [Identifier] in Unspecified specimen by Gram stain Dr. Rishi Vasquez Work Phone: Start: 07-26-[address] Rishi Vasquez Work Phone: Start: 07-10-2023 Us breast uni real time with image limited Rishi Vasquez DO Work Phone: Start: 07-10-2023 Digital breast tomosynthesis unilateral Danyelle Tripp PA-C Work Phone: Start: 06-04-2023 Urnls dip stick/tablet rgnt auto w/o microscopy Rishi Vasquez DO Work Phone: Start: 05-29-2023 End: 05-29-2023 Mammography Clary Andres APRN.[employer] Work Phone: Start: 12-29-2022 Thyroid uptake w/blood flow sngle/mult jamari natalia Rishi Vasquez DO Work Phone: Start: 12-20-2022 Us soft tissue head & neck real time imge docm Rishi Vasquez DO Work Phone: Start: 09-23-2022 Urnls dip stick/tablet rgnt auto w/o microscopy Patel Aquino APRN.[employer] Work Phone: Start: 09-09-2022 INFLUENZA SEASONAL QUADRIVALENT HIGH DOSE AGE 65+ Rishi Vasquez DO Work Phone: Start: 08-15-2022 Radex wrist complete minimum 3 views Camille Mitchell PA-C Work Phone: Start: 06-17-2022 Radex shoulder complete minimum 2 views Kena Schrader SORT OPERATIONS SUPERVISOR.[employer] Work Phone: Start: 06-05-2022 End: 06-05-2022 Screening mammography bi 2-view breast inc cad Rishi Vasquez DO Work Phone: Start: 05-31-2022 Hemoglobin A1c/Hemoglobin.total in Blood Rishi Vasquez DO Work Phone: Start: 01-20-2022 Colonoscopy Yani Watts SORT OPERATIONS SUPERVISOR.[employer] Work Phone: Start: 06-10-2021 Mammography Yani Watts SORT OPERATIONS SUPERVISOR.[employer] Work Phone: Start: 06-11-2017 End: 06-11-2017 ISAC [...] End: 02-21-2017 C reactive protein (hsCRP) Marly walter MD Start: 02-19-2017 End: 02-21-2017 Erythrocyte sedimentation rate Marly Patino MD Start: 02-06-2017 End: 02-08-2017 Thyroperoxidase Ab [Units/volume] in Serum or Plasma Rebekah Castrejon PORTABLE ROUTER OPERATOR Work Phone: Start: 02-06-2017 End: 02-07-2017 Thyrotropin [Units/volume] in Serum or Plasma Rebekah Castrejon PORTABLE ROUTER OPERATOR Work Phone: Start: 02-06-2017 End: 02-07-2017 Thyroxine (T4) free [Mass/volume] in Serum or Plasma Rebekah Castrejon PORTABLE ROUTER OPERATOR Work Phone: Start: 02-06-2017 End: 02-07-2017 Triiodothyronine (T3) Free [Mass/volume] in Serum or Plasma Rebekah Castrejon PORTABLE ROUTER OPERATOR Work Phone: Start: 02-06-2017 End: 02-06-2017 Dietary management education, guidance, and counseling Shaina Serna LPN Start: 02-06-2017 End: 02-07-2017 Thyroid stimulating hormone (TSH) Rebekah Castrejon PORTABLE ROUTER OPERATOR Work Phone: Start: 02-06-2017 End: 02-08-2017 Thyroperoxidase antibody Rebekah Castrejon PORTABLE ROUTER OPERATOR Work Phone: Start: 02-06-2017 End: 02-07-2017 Thyroxine (T4) free Rebekah Castrejon PORTABLE ROUTER OPERATOR Work Phone: Start: 02-06-2017 End: 02-07-2017 Triiodothyronine (T3) free Rebekah willoughby PORTABLE ROUTER OPERATOR Work Phone: Start: 01-08-2017 End: 01-15-2017 *BMP [...] End: 01-15-2017 C reactive protein (hsCRP) Marly walter MD Start: 01-08-2017 End: 01-15-2017 Erythrocyte sedimentation rate Marly Patino MD Start: 01-08-2017 End: 01-15-2017 Mri lower extremity w/o dye Marly Saud Sig ns Start: 01-04-2017 End: 01-15-2017 *CBC with Differential [...] 01-04-2017 Radex foot complete minimum 3 views Maryl Patino MD Start: 01-04-2017 End: 01-15-2017 *CBC with Differential Marly Saud Patino MD Start: 01-04-2017 End: 01-04-2017 Bacterica wound culture Marly Abraham Start: 01-04-2017 End: 01-15-2017 C reactive protein (hsCRP) Marly walter MD Start: 01-04-2017 End: 01-15-2017 Erythrocyte sedimentation rate Marly Saud Patino MD Start: 01-04-2017 End: 01-04-2017 MRSA presence Marly Patino MD Start: 01-04-2017 End: 01-04-2017 X-ray exam of foot Marly Patino MD Start: 01-01-2017 End: 01-02-2017 *CBC with Differential Marly Saud Patino MD Start: 01-01-2017 End: 01-02-2017 C reactive protein [Mass/volume] in Serum or Plasma by High sensitivity method Marly Patino MD Start: 01-01-2017 End: 01-02-2017 Erythrocyte sedimentation rate Marly Patino MD Start: 01-01-2017 End: 01-02-2017 *CBC with Differential Marly Saud Patino MD Start: 01-01-2017 End: 01-02-2017 C reactive protein (hsCRP) Marly walter MD Start: 01-01-2017 End: 01-02-2017 Erythrocyte sedimentation rate Marly Patino MD Start: 12-20-2016 End: 12-20-2016 Radex foot complete minimum 3 views Marly Patino MD Start: 12-20-2016 End: 12-20-2016 Niurka Serna LPN Start: 12-20-2016 End: 12-20-2016 X-ray exam of foot Marly Patino MD Start: 12-18-2016 End: 12-20-2016 *CDIF - Clostridium Diff. Toxin Stool Marly J Sukumar LUNDBERG Start: 12-18-2016 End: 12-20-2016 *CDIF - Clostridium Diff. Toxin Stool Marly Saud Patino MD Start: 12-13-2016 End: 12-15-2016 Radex [...] subq tissue 20 sq cm/< Marly J Sign jose angel LUNDBERG Start: 09-22-2016 End: 09-29-2016 Debridement subcutaneous tissue 20 sq cm/< Marly J Signs Start: 09-22-2016 End: 09-29-2016 Dalila subq tissue 20 sq cm/< Marly J Sign jose angel LUNDBERG Start: 11-30-2015 End: 11-30-2015 ISAC Ch MD Work Phone: Start: 11-30-2015 End: 11-30-2015 Follow Up Appt 1 year Brandon Ch MD Work Phone: Start: 11-30-2015 End: 11-30-2015 ISAC Ch MD Work Phone: Start: 11-30-2015 End: 11-30-2015 Follow Up Appt 1 year Brandon Ch MD Work Phone: Start: 05-25-2015 [...] 05-25-2015 End: 05-26-2015 Smoking cessation education Brandon anderson MD Work Phone: Start: 05-25-2015 End: 05-25-2015 ISAC Ch MD Work Phone: Start: 05-25-2015 End: 05-26-2015 Documentation of current medications Brandon Ch MD Work Phone: Start: 05-25-2015 End: 05-25-2015 Electrocardiogram, complete Brandon anderson MD Work Phone: Start: 05-25-2015 End: 05-25-2015 Follow Up Appt 6 months Brandon Ch MD Work Phone: Start: 05-25-2015 End: 05-26-2015 Smoking cessation education Brandon anderson MD Work Phone: Start: 01-04-2015 End: 05-19-2015 [...] End: 06-18-2014 24 hour holter monitor Ira Lopze PA-C Work Phone: Start: 06-12-2014 End: 06-22-2014 Carotid duplex Ira Lopez PA-C Work Phone: Start: 06-12-2014 End: 06-12-2014 Follow Up Appt Other Ira Lopez PA-C Work Phone: Start: 02-02-2014 End: 04-27-2014 Cardiac Rehab Brandon Ch MD Work Phone: Start: 02-02-2014 End: 02-02-2014 ISAC Ch MD Work Phone: Start: 02-02-2014 End: 02-02-2014 Follow Up Appt 1 year Brandon Ch MD Work Phone: Start: 02-02-2014 End: 04-27-2014 Cardiac Rehab Brandon Ch MD Work Phone: Start: 02-02-2014 End: 02-02-2014 ISAC Ch MD Work Phone: Start: 02-02-2014 End: 02-02-2014 Follow Up Appt 1 year Brandon Ch MD Work Phone: Start: 01-12-2014 End: 01-13-2014 *BMP Brandon Ch MD Work Phone: Start: 01-12-2014 End: 01-13-2014 CBC W Auto Differential panel - Blood Brandon Ch MD Work Phone: Start: 01-12-2014 End: 01-23-2014 Chest x-ray Brandon Ch MD Work Phone: Start: 01-12-2014 End: 01-12-2014 ISAC Ch MD Work Phone: Start: 01-12-2014 End: 01-12-2014 Follow Up Appt 1 year Brandon Ch MD Work Phone: Start: 01-12-2014 End: 01-13-2014 INR [...] End: 01-12-2014 Follow Up Appt 1 year Brandon Ch MD Work Phone: Start: 01-12-2014 End: 01-23-2014 Left Heart Cath Brandon Ch MD Work Phone: Start: 01-05-2014 End: 05-30-2017 Preoperative cardiovascular examination PRE-OPERATIVE CARDIOVASCULAR EXAMINATION Shaina Serna LPN Plan of Treatment Date Care Activity Detail Author Start: 2027 RSV Vaccine (1 - 1-dose 75+ series) RSV Vaccine (1 - 1-dose 75+ series) [facility] Start: 01-20-2027 Colonoscopy COLONOSCOPY [facility] Start: 01-20-2027 COLORECTAL CANCER SCREENING COLORECTAL CANCER SCREENING [facility] Start: 01-20-2027 Screening for malignant neoplasm of colon [facility] Start: 04-30-2026 Annual PCP Team Chronic Disease Visit Annual PCP Team Chronic Disease Visit [facility] Start: 04-30-2026 Covid-19 Vaccine () Covid-19 Vaccine () [facility] Comment on above: Postponed from 07/20/2024 (Declined at t his time) Start: 04-30-2026 Shingrix Vaccine (1 of 2) Shingrix Vaccine (1 of 2) [facility] Comment on above: Postponed from 2002 (Declined at t his time) Start: 04-30-2026 Urine microalbumin profile DTaP,Tdap,Td Vaccine (2 - Td or Tdap) [facility] Comment on above: Postponed from 04/24/2023 (Declined at t his time) Start: 03-27-2026 Annual PCP Team Chronic Disease Visit Annual PCP Team Chronic Disease Visit [facility] Start: 12-13-2025 Hemoglobin A1c measurement HbA1C [facility] Start: 12-05-2025 Annual PCP Team Chronic Disease Visit Annual PCP Team Chronic Disease Visit [facility] Start: 12-05-2025 BP Controlled (<130/80) BP Controlled (<130/80) [facility] Start: 12-01-2025 Complete blood count Hemoglobin/Hematocrit [facility] Start: 12-01-2025 Creatinine measurement Serum Creatinine [facility] Start: 12-01-2025 Hepatitis B surface antibody level LDL Cholesterol [facility] Start: 07-20-2025 Influenza vaccination Influ[facility] (#[facility]) [facility] Start: 06-30-2025 Patient discharge [facility] Start: 06-29-2025 Leukocyte reduced red blood cells [facility] Start: 06-29-2025 [facility] Start: 06-26-2025 [facility] Start: 06-19-2025 Referral to vascular surgeon [facility] Start: 06-17-2025 Wound care [facility] Start: 06-16-2025 End: 06-16-2025 Patient encounter procedure 06/16/2025 12:00 PM EDT Office Visit [facility] [address] [place] [address] Rishi Vasquez DO [address] [place] [address] LVM 1st attempt Physical [facility] Comment on above: LVM 1st attempt Physical Start: 06-16-2025 Administration of blood product [facility] Start: 06-12-2025 [facility] Start: 06-11-2025 [facility] Start: 06-11-2025 [facility] Start: 06-11-2025 [facility] Start: 06-10-2025 Following clinical pathway protocol [facility] Start: 06-10-2025 Peripherally inserted central catheter care [facility] Start: 06-10-2025 Microbial culture, routine [facility] Start: 06-10-2025 Urine culture [facility] Start: 06-10-2025 Source specific culture [facility] Start: 06-10-2025 End: 06-10-2025 [facility] Start: 06-10-2025 Enteric precautions [facility] Start: 06-09-2025 End: 06-09-2025 Patient encounter procedure 06/09/2025 9:00 AM EDT Office Visit [facility] [place] [address] [place] [address] Rishi Vasquez DO [address] [place] [address] Physical [facility] Comment on above: Physical Start: 06-08-2025 End: 06-08-2025 ambulatory 06/08/2025 8:30 AM EDT Results Only [facility] [address] [facility] [place] [address] [facility] Start: 06-08-2025 Patient discharge [facility] Start: 06-06-2025 [facility] Start: 06-05-2025 Endoscopy upper small intestine w/biopsy [facility] Start: 06-05-2025 Enteroscopy > 2nd prtn w/control bleeding [facility] Start: 06-04-2025 [facility] Start: 06-04-2025 Annual PCP Team Chronic Disease Visit Annual PCP Team Chronic Disease Visit [facility] Start: 06-04-2025 BP Controlled (<130/80) BP Controlled (<130/80) [facility] Start: 06-04-2025 End: 06-04-2025 Patient encounter procedure 06/04/2025 9:30 AM EDT Appointment Mammogram [address] [place] [address] Encounter for screening mammogram for malignant neoplasm of breast [Z12.31] Mammogram Comment on above: Encounter for screening mammogram for ma lignant neoplasm of breast [Z12.31] Start: 06-04-2025 Consultation [facility] Start: 06-03-2025 Referral to gastroenterology service [facility] Start: 06-03-2025 Referral to spring floor service worker [facility] Start: 06-03-2025 Screening for malignant neoplasm of breast Mammogram Screening [facility] Start: 06-03-2025 Patient referral to dietitian [facility] Start: 06-02-2025 [facility] Start: 06-02-2025 Glaucoma screening Dilated Retinal Exam [facility] Start: 06-02-2025 Development of care plan [facility] Start: 06-02-2025 Administration of blood product [facility] Start: 06-02-2025 [facility] Start: 06-02-2025 Administration of blood product [facility] Start: 06-02-2025 [facility] Start: 06-02-2025 Following clinical pathway protocol [facility] Start: 06-02-2025 Verification routine [facility] Start: 06-01-2025 End: 06-01-2025 [facility] Start: 06-01-2025 Contact precautions [facility] Start: 06-01-2025 End: 06-01-2025 Wound care [facility] Start: 06-01-2025 Consultation for treatment [facility] Start: 06-01-2025 Admission procedure [facility] Start: 06-01-2025 Measuring intake and output [facility] Start: 06-01-2025 Patient referral to dietitian [facility] Start: 06-01-2025 Referral to occupational therapist [facility] Start: 06-01-2025 Referral to service [facility] Start: 06-01-2025 Vital signs measurements [facility] Start: 05-31-2025 Hemoglobin A1c measurement HbA1C [facility] Start: 05-31-2025 Patient discharge [facility] Start: 05-30-2025 Complete blood count Hemoglobin/Hematocrit [facility] Start: 05-30-2025 Creatinine measurement Serum Creatinine [facility] Start: 05-30-2025 Hepatitis B surface antibody level LDL Cholesterol [facility] Start: 05-29-2025 Consultation for treatment [facility] Start: 05-28-2025 Care planning and problem solving actions [facility] Start: 05-28-2025 Introduction of urinary catheter [facility] Start: 05-28-2025 Removal of urinary catheter [facility] Start: 05-28-2025 Administration of blood product [facility] Start: 05-27-2025 End: 05-27-2025 [facility] Start: 05-27-2025 Prothrombin time [facility] Start: 05-26-2025 End: 05-27-2025 [facility] Start: 05-26-2025 Ambulation without limitation [facility] Start: 05-26-2025 Assessment of risk of venous thromboembolism [facility] Start: 05-26-2025 Elevation of head of bed [facility] Start: 05-26-2025 Insertion of catheter into peripheral vein [facility] Start: 05-26-2025 Measuring intake and output [facility] Start: 05-26-2025 Patient referral to dietitian [facility] Start: 05-26-2025 Providing care according to standard [facility] Start: 05-26-2025 End: 05-27-2025 Removal of urinary catheter [facility] Start: 05-26-2025 Vital signs measurements [facility] Start: 05-26-2025 Administration of blood product [facility] Start: 05-26-2025 Transfusion of red blood cells [facility] Start: 05-25-2025 Following clinical pathway protocol [facility] Start: 05-25-2025 Admission procedure [facility] Start: 05-24-2025 Wound care [facility] Start: 05-24-2025 Referral to vascular surgeon [facility] Start: 05-23-2025 [facility] Start: 05-23-2025 [facility] Start: 05-23-2025 Referral to spring floor service worker [facility] Start: 05-22-2025 Wound care [facility] Start: 05-22-2025 Ambulation without limitation [facility] Start: 05-22-2025 Assessment of risk of venous thromboembolism [facility] Start: 05-22-2025 Care regimes management [facility] Start: 05-22-2025 Insertion of catheter into peripheral vein [facility] Start: 05-22-2025 Notification of physician [facility] Start: 05-22-2025 Providing care according to standard [facility] Start: 05-22-2025 Referral to occupational therapist [facility] Start: 05-22-2025 Referral to service [facility] Start: 05-22-2025 End: 05-22-2025 Following clinical pathway protocol [facility] Start: 05-22-2025 End: 05-22-2025 [facility] Start: 05-22-2025 Hospital admission, emergency, from emergency room, medical nature [facility] Start: 05-22-2025 Verification routine [facility] Start: 05-22-2025 Admission procedure [facility] Start: 05-22-2025 [facility] Start: 05-22-2025 Patient referral to dietitian [facility] Start: 05-21-2025 Blood culture [facility] Start: 05-21-2025 End: 05-21-2025 [facility] Start: 05-21-2025 Patient discharge [facility] Start: 05-21-2025 Referral to service [facility] Start: 05-21-2025 Referral to service [facility] Start: 05-20-2025 Microbial culture, routine [facility] Start: 05-20-2025 End: 05-20-2025 [facility] Start: 05-20-2025 Mycology culture [facility] Start: 05-20-2025 Source specific culture [facility] Start: 05-19-2025 Serum inorganic phosphate measurement [facility] Start: 05-19-2025 [facility] Start: 05-18-2025 Urine culture [facility] Start: 05-18-2025 End: 05-18-2025 [facility] Start: 05-18-2025 Catheterization of vein [facility] Start: 05-18-2025 Consultation [facility] Start: 05-18-2025 Application of intermittent pneumatic compression device [facility] Start: 05-18-2025 Bacterial nucleic acid assay [facility] Start: 05-18-2025 Assessment of risk of venous thromboembolism [facility] Start: 05-18-2025 Care regimes management [facility] Start: 05-18-2025 Consultation [facility] Start: 05-18-2025 Consultation for treatment [facility] Start: 05-18-2025 Elevation of affected extremity [facility] Start: 05-18-2025 Fall prevention [facility] Start: 05-18-2025 Incentive spirometry [facility] Start: 05-18-2025 Inhalation therapy procedure [facility] Start: 05-18-2025 Insertion of catheter into peripheral vein [facility] Start: 05-18-2025 Introduction of urinary catheter [facility] Start: 05-18-2025 Measuring intake and output [facility] Start: 05-18-2025 Notification of physician [facility] Start: 05-18-2025 Oxygen therapy [facility] Start: 05-18-2025 Patient referral to dietitian [facility] Start: 05-18-2025 Providing care according to standard [facility] Start: 05-18-2025 Provision of activity privileges [facility] Start: 05-18-2025 Referral to occupational therapist [facility] Start: 05-18-2025 Referral to spring floor service worker [facility] Start: 05-18-2025 Referral to service [facility] Start: 05-18-2025 Referral to vascular surgeon [facility] Start: 05-18-2025 Wound care [facility] Start: 05-18-2025 Following clinical pathway protocol [facility] Start: 05-18-2025 Serum inorganic phosphate measurement [facility] Start: 05-18-2025 Verification routine [facility] Start: 05-18-2025 Admission procedure [facility] Start: 05-18-2025 Hospital admission, emergency, from emergency room, medical nature [facility] Start: 05-18-2025 [facility] Start: 05-17-2025 End: 05-17-2025 [facility] Start: 05-17-2025 Blood culture [facility] Start: 04-15-2025 Patient discharge [facility] Start: 04-02-2025 Diabetic foot examination Diabetic Foot Exam [facility] Start: 03-27-2025 End: 03-27-2025 Patient encounter procedure 03/27/2025 10:00 AM EDT Office Visit Family [facility] [place] [id number] [place] [address] PodlogYumiko matos APRN.[facility] [address] [place] [address] Discharged 03/20/25 [facility] - Adult failure to thrive, falls, rabdo (no availability within recommended one week F/U with PCP dyad) [facility] [place] Comment on above: Discharged 03/20/25 [facility] - Adult failure to thrive, falls, rabdo (no availability within recommended one week F/U with PCP dyad) Start: 03-20-2025 Patient discharge [facility] Start: 03-19-2025 Developing a treatment plan [facility] Start: 03-19-2025 Development of care plan [facility] Start: 03-19-2025 End: 03-19-2025 [facility] Start: 03-19-2025 End: 03-19-2025 Administration of blood product [facility] Start: 03-18-2025 Referral to service [facility] Start: 03-17-2025 [facility] Start: 03-12-2025 Application of intermittent pneumatic compression device [facility] Start: 03-12-2025 Development of care plan [facility] Start: 03-12-2025 Developing a treatment plan [facility] Start: 03-11-2025 Consultation [facility] Start: 03-11-2025 Referral to spring floor service worker [facility] Start: 03-11-2025 Referral to vascular surgeon [facility] Start: 03-11-2025 Contact precautions [facility] Start: 03-11-2025 Wound care [facility] Start: 03-11-2025 Admission procedure [facility] Start: 03-11-2025 Introduction of urinary catheter [facility] Start: 03-11-2025 Measuring intake and output [facility] Start: 03-11-2025 Patient referral to dietitian [facility] Start: 03-11-2025 Referral to occupational therapist [facility] Start: 03-11-2025 Referral to service [facility] Start: 03-11-2025 Vital signs measurements [facility] Start: 03-11-2025 [facility] Start: 03-11-2025 End: 03-11-2025 Consultation for treatment [facility] Start: 03-11-2025 Following clinical pathway protocol [facility] Start: 03-11-2025 Patient discharge [facility] Start: 03-10-2025 Consultation [facility] Start: 03-08-2025 [facility] Start: 03-08-2025 Consultation [facility] Start: 03-08-2025 Referral to athlete manager [facility] Start: 03-08-2025 [facility] Start: 03-08-2025 Referral to vascular surgeon [facility] Start: 03-08-2025 Application of intermittent pneumatic compression device [facility] Start: 03-07-2025 Following clinical pathway protocol [facility] Start: 03-07-2025 Assessment of risk of venous thromboembolism [facility] Start: 03-07-2025 Care regimes management [facility] Start: 03-07-2025 Consultation for treatment [facility] Start: 03-07-2025 Elevation of affected extremity [facility] Start: 03-07-2025 Fall prevention [facility] Start: 03-07-2025 Insertion of catheter into peripheral vein [facility] Start: 03-07-2025 Introduction of urinary catheter [facility] Start: 03-07-2025 Measuring intake and output [facility] Start: 03-07-2025 Notification of physician [facility] Start: 03-07-2025 Patient referral to dietitian [facility] Start: 03-07-2025 Providing care according to standard [facility] Start: 03-07-2025 Provision of activity privileges [facility] Start: 03-07-2025 Referral to occupational therapist [facility] Start: 03-07-2025 Referral to spring floor service worker [facility] Start: 03-07-2025 Referral to service [facility] Start: 03-07-2025 Wound care [facility] Start: 03-07-2025 End: 03-07-2025 [facility] Start: 03-07-2025 Admission procedure [facility] Start: 03-07-2025 Hospital admission, emergency, from emergency room, medical nature [facility] Start: 03-07-2025 End: 03-07-2025 [facility] Start: 03-07-2025 Bacteria identified in Urine by Culture Urine Culture [facility] Start: 03-07-2025 [facility] Start: 02-26-2025 Anaerobic microbial culture Anaerobic Culture [facility] Start: 02-26-2025 Source specific culture [facility] Start: 02-16-2025 [facility] Start: 02-16-2025 Microbial culture, routine Wound Culture [facility] Start: 02-16-2025 Microscopic observation [Identifier] in Unspecified specimen by Gram stain [facility] Start: 02-16-2025 Wound Culture Wound Culture [facility] Start: 12-05-2024 End: 03-06-2025 25-hydroxyvitamin D3 [Mass/volume] in Serum or Plasma VITAMIN D 25 HYDROXY Lab Routine Vitamin D deficiency Expected: 12/05/2024, Expires: 03/06/2025 [facility] Comment on above: Expected: 12/05/2024, Expires: Start: 12-05-2024 Annual PCP Team Chronic Disease Visit Annual PCP Team Chronic Disease Visit [facility] Start: 12-05-2024 End: 03-06-2025 CBC panel - Blood by Automated count COMPLETE BLOOD COUNT Lab Routine Peripheral vascular occlusive disease (HCC) Expected: 12/05/2024, Expires: 03/06/2025 [facility] Comment on above: Expected: 12/05/2024, Expires: Start: 12-05-2024 End: 03-06-2025 Cobalamin (Vitamin B12) [Mass/volume] in Serum or Plasma VITAMIN B12 Lab Routine 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) Expected: 12/05/2024, Expires: 03/06/2025 [facility] Comment on above: Expected: 12/05/2024, Expires: Start: 12-05-2024 End: 03-06-2025 Comprehensive metabolic 2000 panel - Serum or Plasma COMPREHENSIVE METABOLIC PANEL Lab Routine 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) Expected: 12/05/2024, Expires: 03/06/2025 [facility] Comment on above: Expected: 12/05/2024, Expires: Start: 12-05-2024 End: 03-06-2025 Hemoglobin A1c in Blood HEMOGLOBIN A1C Lab Routine 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) Expected: 12/05/2024, Expires: 03/06/2025 [facility] Work Phone: Comment on above: Expected: 12/05/2024, Expires: Start: 12-05-2024 End: 03-06-2025 Lipid 1996 panel - Serum or Plasma LIPID PANEL BASIC Lab Routine Dyslipidemia (high LDL; low HDL) Expected: 12/05/2024, Expires: 03/06/2025 [facility] Comment on above: Expected: 12/05/2024, Expires: Start: 12-05-2024 End: 03-06-2025 Thyrotropin [Units/volume] in Serum or Plasma THYROID STIMULATING HORMONE Lab Routine Multiple thyroid nodules Expected: 12/05/2024, Expires: 03/06/2025 [facility] Comment on above: Expected: 12/05/2024, Expires: Start: 12-05-2024 End: 03-06-2025 Thyroxine (T4) free [Mass/volume] in Serum or Plasma T4 FREE/FREE THYROXINE Lab Routine Multiple thyroid nodules Expected: 12/05/2024, Expires: 03/06/2025 [facility] Comment on above: Expected: 12/05/2024, Expires: Start: 12-05-2024 End: 12-05-2024 Patient encounter procedure 12/05/2024 9:00 AM EST Office Visit [facility] [address] [place] [address] Rishi Vasquez DO [address] [place], [place] [id number] 6 month follow up [facility] Comment on above: 6 month follow up Start: 11-30-2024 Complete blood count Hemoglobin/Hematocrit [facility] Start: 11-30-2024 Creatinine measurement Serum Creatinine [facility] Start: 11-30-2024 Hemoglobin A1c measurement HbA1C [facility] Start: 01-12-2025 Hepatitis B surface antibody level LDL Cholesterol [facility] Start: 11-19-2024 Medicare Advantage Annual Wellness Visit Medicare Advantage Annual Wellness Visit [facility] Start: 11-15-2024 Glaucoma screening Dilated Retinal Exam [facility] Start: 09-05-2024 End: 09-05-2024 Patient encounter procedure 09/05/2024 9:20 AM EDT Immunization [facility] [place] [address] [place] [address] [place], Immunization Clinic Nurse [address] [place] [address] FLU SHOT [facility] [place] Comment on above: FLU SHOT Start: 07-20-2024 Covid-19 Vaccine ( season) Covid-19 Vaccine () [facility] Start: 07-20-2024 Covid-19 Vaccine () Covid-19 Vaccine () [facility] Start: 07-20-2024 Influenza vaccination Influenza Vaccine (#1) [facility] Start: 06-04-2024 3 comp foot exam completed DIABETIC FOOT EXAM [facility] Start: 06-04-2024 ANNUAL PCP TEAM CHRONIC DISEASE VISIT ANNUAL PCP TEAM CHRONIC DISEASE VISIT [facility] Start: 06-04-2024 BP CONTROLLED (<130/80) BP CONTROLLED (<130/80) [facility] Start: 06-04-2024 Diabetic foot examination Diabetic Foot Exam [facility] Start: 06-04-2024 End: 06-04-2024 Patient encounter procedure 06/04/2024 9:40 AM EDT Office Visit [facility] [address] [place] [address] Rishi Vasquez DO [address] [place] [address] 6 month follow up [facility] Comment on above: 6 month follow up Start: 06-03-2024 End: 06-03-2024 Patient encounter procedure 06/03/2024 9:30 AM EDT Appointment Mammogram [address] [place] [address] Encounter for screening mammogram for malignant neoplasm of breast [Z12.31] Mammogram Comment on above: Encounter for screening mammogram for ma lignant neoplasm of breast [Z12.31] Start: 05-30-2024 End: 08-29-2024 25-hydroxyvitamin D3 [Mass/volume] in Serum or Plasma VITAMIN D 25 HYDROXY Lab Routine Vitamin D deficiency Expected: 05/30/2024 (Approximate), Expires: 08/29/2024 [facility] Comment on above: Expected: 05/30/2024 (Approximate), Expi res: 08/29/2024 Start: 05-30-2024 End: 08-29-2024 CBC W Auto Differential panel - Blood COMPLETE BLOOD COUNT AND DIFFERENTIAL Lab Routine Essential hypertension Fatigue, unspecified type Expected: 05/30/2024 (Approximate), Expires: 08/29/2024 [facility] Comment on above: Expected: 05/30/2024 (Approximate), Expi res: 08/29/2024 Start: 05-30-2024 End: 08-29-2024 Comprehensive metabolic 2000 panel - Serum or Plasma COMPREHENSIVE METABOLIC PANEL Lab Routine Essential hypertension 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) CKD stage G3b/A1, GFR 30-44 and albumin creatinine ratio <30 mg/g (HCC) Dyslipidemia (high LDL; low HDL) Expected: 05/30/2024 (Approximate), Expires: 08/29/2024 [facility] Comment on above: Expected: 05/30/2024 (Approximate), Expi res: 08/29/2024 Start: 05-30-2024 End: 08-29-2024 Hemoglobin A1c in Blood HEMOGLOBIN A1C Lab Routine 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) Expected: 05/30/2024 (Approximate), Expires: 08/29/2024 [facility] Comment on above: Expected: 05/30/2024 (Approximate), Expi res: 08/29/2024 Start: 05-30-2024 Hemoglobin A1c measurement HbA1C [facility] Start: 05-30-2024 HEMOGLOBIN/HEMATOCRIT HEMOGLOBIN/HEMATOCRIT [facility] Start: 05-30-2024 Hepatitis B screening URINE ALBUMIN:CREATININE RATIO [facility] Start: 05-30-2024 Hepatitis B surface antibody level LDL CHOLESTEROL [facility] Start: 05-30-2024 End: 08-29-2024 Lipid 1996 panel - Serum or Plasma LIPID PANEL BASIC Lab Routine Essential hypertension 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) Dyslipidemia (high LDL; low HDL) Expected: 05/30/2024 (Approximate), Expires: 08/29/2024 [facility] Work Phone: Comment on above: Expected: 05/30/2024 (Approximate), Expi res: 08/29/2024 Start: 05-30-2024 SERUM CREATININE SERUM CREATININE [facility] Start: 05-30-2024 End: 08-29-2024 Thyrotropin [Units/volume] in Serum or Plasma THYROID STIMULATING HORMONE Lab Routine Multiple thyroid nodules Low TSH level Fatigue, unspecified type Expected: 05/30/2024 (Approximate), Expires: 08/29/2024 [facility] Comment on above: Expected: 05/30/2024 (Approximate), Expi res: 08/29/2024 Start: 05-30-2024 End: 08-29-2024 Thyroxine (T4) free [Mass/volume] in Serum or Plasma T4 FREE/FREE THYROXINE Lab Routine Multiple thyroid nodules Low TSH level Fatigue, unspecified type Expected: 05/30/2024 (Approximate), Expires: 08/29/2024 [facility] Comment on above: Expected: 05/30/2024 (Approximate), Expi res: 08/29/2024 Start: 05-30-2024 End: 08-29-2024 Triiodothyronine (T3) Free [Mass/volume] in Serum or Plasma T3, FREE Lab Routine Multiple thyroid nodules Low TSH level Fatigue, unspecified type Expected: 05/30/2024 (Approximate), Expires: 08/29/2024 [facility] Comment on above: Expected: 05/30/2024 (Approximate), Expi res: 08/29/2024 Start: 05-30-2024 End: 05-30-2024 ambulatory 05/30/2024 8:00 AM EDT Results Only [place] [facility] Draw Station [address] [facility] [address] [place] [address] [place] [facility] Draw Station Start: 05-29-2024 Mammography [facility] Start: 05-29-2024 Screening for malignant neoplasm of breast Mammogram Screening [facility] Start: 04-16-2024 End: 04-16-2024 ambulatory 04/16/2024 4:45 PM EDT OT/PT/Speech Visit [facility] [address] [place] [address] TejinderAnselmo, PT [address] [place] [address] test [facility] Comment on above: test Start: 03-25-2024 End: 03-25-2024 ambulatory 03/25/2024 9:30 AM EDT OT/PT/Speech Visit [facility] [address] [place] [address] Keisha Guzman, SCREEN ROOM OPERATOR [address] [place] [address] M54.50,G89.29 (ICD-10-CM) - Chronic midline low back pain without sciatica [facility] Comment on above: M54.50,G89.29 (ICD-10-CM) - Chronic midl ine low back pain without sciatica Start: 03-20-2024 End: 03-20-2024 ambulatory 03/20/2024 10:00 AM EDT OT/PT/Speech Visit [facility] [address] [place] [address] Anselmo Marr, PT [address] [place] [address] M54.50,G89.29 (ICD-10-CM) - Chronic midline low back pain without sciatica [facility] Comment on above: M54.50,G89.29 (ICD-10-CM) - Chronic midl ine low back pain without sciatica Start: 12-14-2023 HEMOGLOBIN/HEMATOCRIT HEMOGLOBIN/HEMATOCRIT [facility] Start: 12-14-2023 SERUM CREATININE SERUM CREATININE [facility] Start: 12-05-2023 ANNUAL PCP TEAM CHRONIC DISEASE VISIT ANNUAL PCP TEAM CHRONIC DISEASE VISIT [facility] Start: 12-05-2023 BP CONTROLLED (<130/80) BP CONTROLLED (<130/80) [facility] Start: 11-30-2023 Hemoglobin A1c/Hemoglobin.total in Blood HBA1C [facility] Start: 08-31-2023 HEMOGLOBIN/HEMATOCRIT HEMOGLOBIN/HEMATOCRIT [facility] Start: 08-31-2023 Hepatitis B surface antibody level LDL CHOLESTEROL [facility] Start: 08-31-2023 SERUM CREATININE SERUM CREATININE [facility] Start: 08-16-2023 Anaerobic Culture Anaerobic Culture [facility] Start: 07-20-2023 Covid-19 Vaccine () Covid-19 Vaccine () [facility] Start: 07-20-2023 Influenza vaccination [facility] Start: 06-13-2023 Hemoglobin A1c/Hemoglobin.total in Blood HBA1C [facility] Start: 06-05-2023 Mammography MAMMOGRAM [facility] Start: 06-04-2023 End: 08-04-2023 Bacteria identified in Urine by Culture [facility] Work Phone: Comment on above: Expected: 06/04/2023, Expires: 3 Start: 05-31-2023 ANNUAL PCP TEAM CHRONIC DISEASE VISIT ANNUAL PCP TEAM CHRONIC DISEASE VISIT [facility] Start: 05-31-2023 BP CONTROLLED (<130/80) BP CONTROLLED (<130/80) [facility] Start: 05-16-2023 3 comp foot exam completed DIABETIC FOOT EXAM [facility] Start: 05-08-2023 Hepatitis C antibody, confirmatory test DILATED RETINAL EXAM [facility] Start: 04-24-2023 Urine microalbumin profile [facility] Start: 03-07-2023 SERUM CREATININE SERUM CREATININE [facility] Start: 03-01-2023 Hemoglobin A1c/Hemoglobin.total in Blood HBA1C [facility] Start: 02-27-2023 End: 04-29-2023 ALBUMIN/CREAT RATIO RND UR ALBUMIN/CREAT RATIO RND UR Lab Routine 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) Expected: 02/27/2023, Expires: 04/29/2023 [facility] Work Phone: Comment on above: Expected: 02/27/2023, Expires: 3 Start: 02-23-2023 HEMOGLOBIN/HEMATOCRIT HEMOGLOBIN/HEMATOCRIT [facility] Start: 02-23-2023 Hepatitis B surface antibody level LDL CHOLESTEROL [facility] Start: 12-05-2022 End: 02-04-2023 CBC W Auto Differential panel - Blood CBC + DIFF Lab Routine Dizziness Biceps rupture, proximal, left, initial encounter Expected: 12/05/2022, Expires: 02/04/2023 [facility] Work Phone: Comment on above: Expected: 12/05/2022, Expires: 3 Start: 12-05-2022 End: 02-04-2023 Comprehensive metabolic 2000 panel - Serum or Plasma COMP METABOLIC PANEL Lab Routine Dizziness Biceps rupture, proximal, left, initial encounter Expected: 12/05/2022, Expires: 02/04/2023 [facility] Work Phone: Comment on above: Expected: 12/05/2022, Expires: 3 Start: 12-05-2022 End: 02-04-2023 Creatine kinase [Enzymatic activity/volume] in Serum or Plasma CK CREATINE KINASE Lab Routine Dizziness Biceps rupture, proximal, left, initial encounter Expected: 12/05/2022, Expires: 02/04/2023 [facility] Work Phone: Comment on above: Expected: 12/05/2022, Expires: 3 Start: 12-05-2022 End: 02-04-2023 Hemoglobin A1c in Blood HGB A1C Lab Routine 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) Expected: 12/05/2022, Expires: 02/04/2023 [facility] Work Phone: Comment on above: Expected: 12/05/2022, Expires: 3 Start: 12-05-2022 End: 02-04-2023 Magnesium [Mass/volume] in Serum or Plasma MAGNESIUM BLD Lab Routine Dizziness Biceps rupture, proximal, left, initial encounter Expected: 12/05/2022, Expires: 02/04/2023 [facility] Work Phone: Comment on above: Expected: 12/05/2022, Expires: 3 Start: 12-05-2022 End: 02-04-2023 Thyrotropin [Units/volume] in Serum or Plasma TSH BLD Lab Routine Dizziness Expected: 12/05/2022, Expires: 02/04/2023 [facility] Work Phone: Comment on above: Expected: 12/05/2022, Expires: 3 Start: 12-05-2022 End: 02-04-2023 Thyroxine (T4) free [Mass/volume] in Serum or Plasma T4 FREE/FREE THYROX Lab Routine Dizziness Expected: 12/05/2022, Expires: 02/04/2023 [facility] Work Phone: Comment on above: Expected: 12/05/2022, Expires: 3 Start: 12-02-2022 ANNUAL PCP TEAM CHRONIC DISEASE VISIT ANNUAL PCP TEAM CHRONIC DISEASE VISIT [facility] Start: 12-01-2022 Hemoglobin A1c/Hemoglobin.total in Blood HBA1C [facility] Start: 11-28-2022 Hepatitis B screening URINE ALBUMIN:CREATININE RATIO [facility] Start: 10-07-2022 End: 12-07-2022 Thyrotropin [Units/volume] in Serum or Plasma TSH BLD Lab Routine Low TSH level Abnormal thyroid blood test Borderline abnormal thyroid function test Expected: 10/07/2022, Expires: 12/07/2022 [facility] Work Phone: Comment on above: Expected: 10/07/2022, Expires: 3 Start: 10-07-2022 End: 12-07-2022 Thyroxine (T4) free [Mass/volume] in Serum or Plasma T4 FREE/FREE THYROX Lab Routine Low TSH level Abnormal thyroid blood test Borderline abnormal thyroid function test Expected: 10/07/2022, Expires: 12/07/2022 [facility] Work Phone: Comment on above: Expected: 10/07/2022, Expires: 3 Start: 10-07-2022 End: 12-07-2022 Triiodothyronine (T3) Free [Mass/volume] in Serum or Plasma T3 FREE BLD Lab Routine Low TSH level Abnormal thyroid blood test Borderline abnormal thyroid function test Expected: 10/07/2022, Expires: 12/07/2022 [facility] Work Phone: Comment on above: Expected: 10/07/2022, Expires: 3 Start: 08-31-2022 End: 10-31-2022 25-hydroxyvitamin D3 [Mass/volume] in Serum or Plasma VITAMIN D 25 HYDROXY Lab Routine Vitamin D deficiency Expected: 08/31/2022, Expires: 10/31/2022 [facility] Work Phone: Comment on above: Expected: 08/31/2022, Expires: 2 Start: 08-31-2022 End: 10-31-2022 CBC panel - Blood by Automated count CBC Lab Routine 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) Stage 3 chronic kidney disease, unspecified whether stage 3a or 3b CKD (HCC) Essential hypertension Dyslipidemia (high LDL; low HDL) Expected: 08/31/2022, Expires: 10/31/2022 [facility] Work Phone: Comment on above: Expected: 08/31/2022, Expires: 2 Start: 08-31-2022 End: 10-31-2022 Cobalamin (Vitamin B12) [Mass/volume] in Serum or Plasma VITAMIN B12 BLOOD Lab Routine 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) Expected: 08/31/2022, Expires: 10/31/2022 [facility] Work Phone: Comment on above: Expected: 08/31/2022, Expires: 2 Start: 08-31-2022 End: 10-31-2022 Comprehensive metabolic 2000 panel - Serum or Plasma COMP METABOLIC PANEL Lab Routine 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) Expected: 08/31/2022, Expires: 10/31/2022 [facility] Work Phone: Comment on above: Expected: 08/31/2022, Expires: 2 Start: 08-31-2022 End: 10-31-2022 Hemoglobin A1c in Blood HGB A1C Lab Routine 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) Expected: 08/31/2022, Expires: 10/31/2022 [facility] Work Phone: Comment on above: Expected: 08/31/2022, Expires: 2 Start: 08-31-2022 End: 10-31-2022 Lipid 1996 panel - Serum or Plasma LIPID PANEL BASIC Lab Routine Dyslipidemia (high LDL; low HDL) Expected: 08/31/2022, Expires: 10/31/2022 [facility] Work Phone: Comment on above: Expected: 08/31/2022, Expires: 2 Start: 08-31-2022 End: 10-31-2022 Thyrotropin [Units/volume] in Serum or Plasma TSH BLD Lab Routine 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) Stage 3 chronic kidney disease, unspecified whether stage 3a or 3b CKD (HCC) Fatigue, unspecified type Expected: 08/31/2022, Expires: 10/31/2022 [facility] Work Phone: Comment on above: Expected: 08/31/2022, Expires: 2 Start: 08-25-2022 Hemoglobin A1c/Hemoglobin.total in Blood HBA1C [facility] Start: 07-20-2022 Influenza vaccination INFLUENZA (#1) [facility] Start: 07-14-2022 BP CONTROLLED (<130/80) BP CONTROLLED (<130/80) [facility] Start: 06-10-2022 Mammography MAMMOGRAM [facility] Start: 05-30-2022 3 comp foot exam completed DIABETIC FOOT EXAM [facility] Start: 04-26-2022 COVID-19 VACCINE (3 - Booster for Kellee series) COVID-19 VACCINE (3 - Booster for Kellee series) [facility] Start: 03-30-2022 Hepatitis C antibody, confirmatory test DILATED RETINAL EXAM [facility] Start: 02-21-2022 COVID-19 VACCINE (3 - Booster for Kellee series) COVID-19 VACCINE (3 - Booster for Kellee series) [facility] Start: 01-20-2022 Colonoscopy flx dx w/collj spec when pfrmd DIAGNOSTIC COLONOSCOPY [facility] Work Phone: Start: 11-19-2021 ADVANCE DIRECTIVE DISCUSSION ADVANCE DIRECTIVE DISCUSSION [facility] Start: 12-17-2017 End: 12-17-2017 Appointment Appointment [facility] Work Phone: Start: 08-30-2017 End: 08-30-2017 Appointment Appointment [facility] Work Phone: Start: 06-11-2017 End: 06-11-2017 ISAC CHAU [facility] Work Phone: Start: 06-11-2017 End: 06-11-2017 Follow Up Appt 6 months Follow Up Appt 6 months [facility] Work Phone: Start: 06-11-2017 End: 06-11-2017 Appointment Appointment [facility] Work Phone: Start: 06-11-2017 End: 06-11-2017 ISAC CHAU [facility] Work Phone: Start: 06-11-2017 End: 06-11-2017 Follow Up Appt 6 months Follow Up Appt 6 months [facility] Work Phone: Start: 06-04-2017 End: 06-04-2017 Appointment Appointment [facility] Work Phone: Start: 05-04-2017 End: 05-04-2017 Thyroid stimulating hormone (TSH) *TSH [facility] Work Phone: Start: 05-04-2017 End: 05-04-2017 Thyroxine (T4) free *T4 free [facility] Work Phone: Start: 05-04-2017 End: 05-04-2017 Triiodothyronine (T3) free *T3-Free [facility] Work Phone: Start: 05-04-2017 End: 05-04-2017 Thyroid stimulating hormone (TSH) *TSH [facility] Work Phone: Start: 05-04-2017 End: 05-04-2017 Thyroxine (T4) free *T4 free [facility] Work Phone: Start: 05-04-2017 End: 05-04-2017 Triiodothyronine (T3) free *T3-Free [facility] Work Phone: Start: 05-02-2017 End: 05-02-2017 *BMP *BMP [facility] Work Phone: Start: 05-02-2017 End: 05-02-2017 *CBC with Differential *CBC with Differential [facility] Work Phone: Start: 05-02-2017 End: 05-02-2017 Appointment Appointment [facility] Work Phone: Start: 05-02-2017 End: 05-02-2017 *BMP *BMP [facility] Work Phone: Start: 05-02-2017 End: 05-02-2017 *CBC with Differential *CBC with Differential [facility] Work Phone: Start: 04-23-2017 End: 04-23-2017 C reactive protein (hsCRP) *CRP - C-Reative Protein [facility] Work Phone: Start: 04-23-2017 End: 04-23-2017 Erythrocyte sedimentation rate *Sedimentation Rate (ESR) [facility] Work Phone: Start: 04-23-2017 End: 04-23-2017 C reactive protein (hsCRP) *CRP - C-Reative Protein [facility] Work Phone: Start: 04-23-2017 End: 04-23-2017 Erythrocyte sedimentation rate *Sedimentation Rate (ESR) [facility] Work Phone: Start: 02-19-2017 End: 02-21-2017 C reactive protein (hsCRP) *CRP - C-Reative Protein [facility] Work Phone: Start: 02-19-2017 End: 02-21-2017 Erythrocyte sedimentation rate *Sedimentation Rate (ESR) [facility] Work Phone: Start: 02-19-2017 End: 02-21-2017 C reactive protein (hsCRP) *CRP - C-Reative Protein [facility] Work Phone: Start: 02-19-2017 End: 02-21-2017 Erythrocyte sedimentation rate *Sedimentation Rate (ESR) [facility] Work Phone: Start: 02-06-2017 End: 02-07-2017 Thyroid stimulating hormone (TSH) *TSH [facility] Work Phone: Start: 02-06-2017 End: 02-08-2017 Thyroperoxidase antibody *TPO Thyroid Peroxidase Antibodies [facility] Work Phone: Start: 02-06-2017 End: 02-07-2017 Thyroxine (T4) free *T4 free [facility] Work Phone: Start: 02-06-2017 End: 02-07-2017 Triiodothyronine (T3) free *T3-Free [facility] Work Phone: Start: 02-06-2017 End: 02-07-2017 Thyroid stimulating hormone (TSH) *TSH [facility] Work Phone: Start: 02-06-2017 End: 02-08-2017 Thyroperoxidase antibody *TPO Thyroid Peroxidase Antibodies [facility] Work Phone: Start: 02-06-2017 End: 02-07-2017 Thyroxine (T4) free *T4 free [facility] Work Phone: Start: 02-06-2017 End: 02-07-2017 Triiodothyronine (T3) free *T3-Free [facility] Work Phone: Start: 01-24-2017 End: 01-24-2017 Bacterica wound culture *Culture and Sensitivity, wound [facility] Work Phone: Start: 01-24-2017 End: 01-24-2017 Bacterica wound culture *Culture and Sensitivity, wound [facility] Work Phone: Start: 01-08-2017 End: 01-15-2017 *BMP *BMP [facility] Work Phone: Start: 01-08-2017 End: 01-15-2017 *CBC with Differential *CBC with Differential [facility] Work Phone: Start: 01-08-2017 End: 01-15-2017 C reactive protein (hsCRP) *CRP - C-Reative Protein [facility] Work Phone: Start: 01-08-2017 End: 01-15-2017 Erythrocyte sedimentation rate *Sedimentation Rate (ESR) [facility] [employer] Work Phone: Start: 01-08-2017 End: 01-15-2017 Mri lower extrem oth/thn jt w/o contr matrl MRI Non Joint Lower Extremity w/o [facility] Work Phone: Start: 01-08-2017 End: 01-15-2017 *BMP *BMP [facility] Work Phone: Start: 01-08-2017 End: 01-15-2017 *CBC with Differential *CBC with Differential [facility] Work Phone: Start: 01-08-2017 End: 01-15-2017 C reactive protein (hsCRP) *CRP - C-Reative Protein [facility] Work Phone: Start: 01-08-2017 End: 01-15-2017 Erythrocyte sedimentation rate *Sedimentation Rate (ESR) [facility] Work Phone: Start: 01-08-2017 End: 01-15-2017 Mri lower extremity w/o dye MRI Non Joint Lower Extremity w/o [facility] Work Phone: Start: 01-04-2017 End: 01-04-2017 *CBC with Differential *CBC with Differential [facility] [employer] Work Phone: Start: 01-04-2017 End: 01-04-2017 Bacterica wound culture *Culture and Sensitivity, wound [facility] [employer] Work Phone: Start: 01-04-2017 End: 01-04-2017 C reactive protein (hsCRP) *CRP - C-Reative Protein [facility] [employer] Work Phone: Start: 01-04-2017 End: 01-04-2017 Erythrocyte sedimentation rate *Sedimentation Rate (ESR) [facility] [employer] Work Phone: Start: 01-04-2017 End: 01-04-2017 MRSA presence *MRSAD - M R Staph Aureus DNA by PCR [facility] [employer] Work Phone: Start: 01-04-2017 End: 01-04-2017 Radex foot complete minimum 3 views X-Ray, Foot [facility] Work Phone: Start: 01-04-2017 End: 01-04-2017 *CBC with Differential *CBC with Differential [facility] Work Phone: Start: 01-04-2017 End: 01-04-2017 Bacterica wound culture *Culture and Sensitivity, wound [facility] Work Phone: Start: 01-04-2017 End: 01-04-2017 C reactive protein (hsCRP) *CRP - C-Reative Protein [facility] Work Phone: Start: 01-04-2017 End: 01-04-2017 Erythrocyte sedimentation rate *Sedimentation Rate (ESR) [facility] Work Phone: Start: 01-04-2017 End: 01-04-2017 MRSA presence *MRSAD - M R Staph Aureus DNA by PCR [facility] Work Phone: Start: 01-04-2017 End: 01-04-2017 X-ray exam of foot X-Ray, Foot [facility] Work Phone: Start: 01-01-2017 End: 01-02-2017 *CBC with Differential *CBC with Differential [facility] Work Phone: Start: 01-01-2017 End: 01-02-2017 C reactive protein (hsCRP) *CRP - C-Reative Protein [facility] Work Phone: Start: 01-01-2017 End: 01-02-2017 Erythrocyte sedimentation rate *Sedimentation Rate (ESR) [facility] Work Phone: Start: 01-01-2017 End: 01-02-2017 *CBC with Differential *CBC with Differential [facility] Work Phone: Start: 01-01-2017 End: 01-02-2017 C reactive protein (hsCRP) *CRP - C-Reative Protein [facility] Work Phone: Start: 01-01-2017 End: 01-02-2017 Erythrocyte sedimentation rate *Sedimentation Rate (ESR) [facility] Work Phone: Start: 12-20-2016 End: 12-20-2016 Radex foot complete minimum 3 views X-Ray, Foot [facility] Work Phone: Start: 12-20-2016 End: 12-20-2016 X-ray exam of foot X-Ray, Foot [facility] Work Phone: Start: 12-18-2016 End: 12-20-2016 *CDIF - Clostridium Diff. Toxin Stool *CDIF - Clostridium Diff. Toxin Stool [facility] Work Phone: Start: 12-18-2016 End: 12-20-2016 *CDIF - Clostridium Diff. Toxin Stool *CDIF - Clostridium Diff. Toxin Stool [facility] Work Phone: Start: 12-13-2016 End: 12-15-2016 Radex foot complete minimum 3 views X-Ray, Foot [facility] Work Phone: Start: 12-13-2016 End: 12-15-2016 X-ray exam of foot X-Ray, Foot [facility] Work Phone: Start: 12-05-2016 End: 12-05-2016 DJN DJN [facility] Work Phone: Start: 12-05-2016 End: 12-05-2016 Follow Up Appt 6 months Follow Up Appt 6 months [facility] Work Phone: Start: 12-05-2016 End: 12-05-2016 DJShruthi DJN [facility] Work Phone: Start: 12-05-2016 End: 12-05-2016 Follow Up Appt 6 months Follow Up Appt 6 months [facility] Work Phone: Start: 11-22-2016 End: 11-23-2016 *IGSUB IMMUN Subclas-IGG1,2,3 &4 *IGSUB IMMUN Subclas-IGG1,2,3 &4 [facility] Work Phone: Start: 11-22-2016 End: 11-29-2016 Debridement subcutaneous tissue 20 sq cm/< Debridement, subcutaneous tissue first 20 sq cm or less [facility] Work Phone: Start: 11-22-2016 End: 11-23-2016 *IGSUB IMMUN Subclas-IGG1,2,3 &4 *IGSUB IMMUN Subclas-IGG1,2,3 &4 [facility] Work Phone: Start: 11-22-2016 End: 11-29-2016 Dalila subq tissue 20 sq cm/< Debridement, subcutaneous tissue first 20 sq cm or less [facility] Work Phone: Start: 09-22-2016 End: 09-29-2016 Debridement subcutaneous tissue 20 sq cm/< Debridement, subcutaneous tissue first 20 sq cm or less [facility] Work Phone: Start: 09-22-2016 End: 09-29-2016 Dalila subq tissue 20 sq cm/< Debridement, subcutaneous tissue first 20 sq cm or less [facility] Work Phone: Start: 11-30-2015 End: 11-30-2015 ISAC CHAU [facility] Work Phone: Start: 11-30-2015 End: 11-30-2015 Follow Up Appt 1 year Follow Up Appt 1 year [facility] Work Phone: Start: 11-30-2015 End: 11-30-2015 ISAC CHAU [facility] Work Phone: Start: 11-30-2015 End: 11-30-2015 Follow Up Appt 1 year Follow Up Appt 1 year [facility] Work Phone: Start: 05-25-2015 End: 05-25-2015 ISAC CHAU [facility] Work Phone: Start: 05-25-2015 End: 05-25-2015 Ecg routine ecg w/least 12 lds w/i&r EKG (In office) [facility] Work Phone: Start: 05-25-2015 End: 05-25-2015 Follow Up Appt 6 months Follow Up Appt 6 months [facility] Work Phone: Start: 05-25-2015 End: 05-25-2015 ISAC CHAU [facility] Work Phone: Start: 05-25-2015 End: 05-25-2015 Electrocardiogram, complete EKG (In office) [facility] Work Phone: Start: 05-25-2015 End: 05-25-2015 Follow Up Appt 6 months Follow Up Appt 6 months [facility] Work Phone: Start: 01-04-2015 End: 01-04-2015 Vascular Surgery Vascular Surgery Kwaku Hurtadodaniel, [address], [address], [place], [address] [facility] Work Phone: Start: 01-04-2015 End: 01-04-2015 Vascular Surgery Vascular Surgery Kwaku Moscoso, [facility], [address] [place], [address] [facility] Work Phone: Start: 12-29-2014 End: 05-19-2015 *BMP *BMP [facility] Work Phone: Start: 12-29-2014 End: 12-29-2014 Ct angiography neck w/contrast/noncontrast CTA Neck [facility] Work Phone: Start: 12-29-2014 End: 12-29-2014 ISAC CHAU [facility] Work Phone: Start: 12-29-2014 End: 12-29-2014 Follow Up Appt 6 months Follow Up Appt 6 months [facility] Work Phone: Start: 12-29-2014 End: 05-19-2015 *BMP *BMP [facility] Work Phone: Start: 12-29-2014 End: 12-29-2014 Ct angiography, neck CTA Neck [facility] Work Phone: Start: 12-29-2014 End: 12-29-2014 TENZINN TENZINN [facility] Work Phone: Start: 12-29-2014 End: 12-29-2014 Follow Up Appt 6 months Follow Up Appt 6 months [facility] Work Phone: Start: 06-12-2014 End: 06-12-2014 24 hour holter monitor 24 hour holter monitor [facility] Work Phone: Start: 06-12-2014 End: 06-15-2014 Carotid duplex Carotid duplex [facility] Work Phone: Start: 06-12-2014 End: 06-12-2014 Follow Up Appt Other Follow Up Appt Other [facility] Work Phone: Start: 06-12-2014 End: 06-12-2014 24 hour holter monitor 24 hour holter monitor [facility] Work Phone: Start: 06-12-2014 End: 06-15-2014 Carotid duplex Carotid duplex [facility] Work Phone: Start: 06-12-2014 End: 06-12-2014 Follow Up Appt Other Follow Up Appt Other [facility] Work Phone: Start: 02-02-2014 End: 02-02-2014 Cardiac Rehab Cardiac Rehab [facility] Work Phone: Start: 02-02-2014 End: 02-02-2014 ISAC DAVEN [facility] Work Phone: Start: 02-02-2014 End: 02-02-2014 Follow Up Appt 1 year Follow Up Appt 1 year [facility] Work Phone: Start: 02-02-2014 End: 02-02-2014 Cardiac Rehab Cardiac Rehab [facility] Work Phone: Start: 02-02-2014 End: 02-02-2014 ISAC CHAU [facility] Work Phone: Start: 02-02-2014 End: 02-02-2014 Follow Up Appt 1 year Follow Up Appt 1 year [facility] Work Phone: Start: 01-12-2014 End: 01-12-2014 *BMP *BMP [facility] Work Phone: Start: 01-12-2014 End: 01-12-2014 CBC W Auto Differential panel - Blood *CBC without Diff [facility] Work Phone: Start: 01-12-2014 End: 01-23-2014 Chest x-ray X-Ray, Chest, PA & Lateral [facility] Work Phone: Start: 01-12-2014 End: 01-12-2014 ISAC CHAU [facility] Work Phone: Start: 01-12-2014 End: 01-12-2014 Follow Up Appt 1 year Follow Up Appt 1 year [facility] Work Phone: Start: 01-12-2014 End: 01-12-2014 INR Coag RelTime (PPP) *PT/INR [facility] Work Phone: Start: 01-12-2014 End: 01-12-2014 Left Heart Cath Left Heart Cath [facility] Work Phone: Start: 01-12-2014 End: 01-12-2014 *BMP *BMP [facility] Work Phone: Start: 01-12-2014 End: 01-12-2014 CBC W Auto Differential panel - Blood *CBC without Diff [facility] Work Phone: Start: 01-12-2014 End: 01-23-2014 Chest x-ray X-Ray, Chest, PA & Lateral [facility] Work Phone: Start: 01-12-2014 End: 01-12-2014 Coagulation factor induced.INR assay in platelet poor plasma *PT/INR [facility] Work Phone: Start: 01-12-2014 End: 01-12-2014 ISAC CHAU [facility] Work Phone: Start: 01-12-2014 End: 01-12-2014 Follow Up Appt 1 year Follow Up Appt 1 year [facility] Work Phone: Start: 01-12-2014 End: 01-12-2014 Left Heart Cath Left Heart Cath [facility] Work Phone: Start: 2012 Hepatitis B Vaccine (1 of 3 - Risk 3-dose series) Hepatitis B Vaccine (1 of 3 - Risk 3-dose series) [facility] Start: 2012 RSV Vaccine (1 - 1-dose 60+ series) RSV Vaccine (1 - 1-dose 60+ series) [facility] Start: 2002 Influenza vaccination LUNG CANCER SCREENING [facility] Start: 2002 Screening for malignant neoplasm of lung Lung Cancer Screening [facility] Start: 2002 SHINGRIX VACCINE (1 of 2) SHINGRIX VACCINE (1 of 2) [facility] Start: 1997 COLOGUARD (FIT-DNA) COLOGUARD (FIT-DNA) [facility] Start: [address] COLONOGRAPHY [facility] Start: 1997 FECAL OCCULT BLOOD FECAL OCCULT BLOOD [facility] Start: 1997 Screening for malignant neoplasm of colon [facility] Start: 1997 SIGMOIDOSCOPY SIGMOIDOSCOPY [facility] Start: 1970 Anxiety Screening Anxiety Screening [facility] Alanine aminotransfe rase [Enzymatic activity/volume] in Serum or Plasma [facility] Albumin [Mass/volume ] in Serum or Plasma [facility] Alkaline phosphatase [Enzymatic activity/volume] in Serum or Plasma [facility] Anion gap in Serum o r Plasma [facility] Anion gap in Serum o r Plasma [facility] Anion gap in Serum o r Plasma [facility] Anion gap in Serum o r Plasma [facility] Anion gap in Serum o r Plasma [facility] Ankle brachial press ure index [facility] Bacteria identified in Unspecified specimen by Anaerobe culture [facility] Bacteria identified in Unspecified specimen by Anaerobe culture [facility] Bacteria identified in Unspecified specimen by Anaerobe culture [facility] Bacteria identified in Urine by Culture URINE CULTURE Microbiology Routine Acute cystitis with hematuria Ordered: 09/23/2022 [facility] Work Phone: Comment on above: Ordered: 09/23/2022 Bilirubin measuremen t, urine [facility] Bilirubin, total measurement [facility] BUN/Creatinine ratio [facility] BUN/Creatinine ratio [facility] BUN/Creatinine ratio [facility] BUN/Creatinine ratio [facility] BUN/Creatinine ratio [facility] Calcium [Mass/volume ] in Serum or Plasma [facility] Calcium [Mass/volume ] in Serum or Plasma [facility] Calcium [Mass/volume ] in Serum or Plasma [facility] Calcium [Mass/volume ] in Serum or Plasma [facility] Calcium [Mass/volume ] in Serum or Plasma [facility] Carbon dioxide, tota l [Moles/volume] in Central venous blood [facility] Carbon dioxide, tota l [Moles/volume] in Central venous blood [facility] Carbon dioxide, tota l [Moles/volume] in Central venous blood [facility] Carbon dioxide, tota l [Moles/volume] in Central venous blood [facility] Carbon dioxide, tota l [Moles/volume] in Central venous blood [facility] Creatinine [Mass/vol ume] in Serum or Plasma [facility] Creatinine [Mass/vol ume] in Serum or Plasma [facility] Creatinine [Mass/vol ume] in Serum or Plasma [facility] Creatinine [Mass/vol ume] in Serum or Plasma [facility] Creatinine [Mass/vol ume] in Serum or Plasma [facility] DBT Breast - bilater al screening ALEJANDRO SCREENING W BEN Radiology Routine Encounter for screening mammogram for malignant neoplasm of breast 06/03/2024 9:42 AM EDT [facility] Work Phone: End: 01-04-2026 DBT Breast - bilateral screening ALEJANDRO SCREENING W BEN Radiology Routine Encounter for screening mammogram for malignant neoplasm of breast 1 Occurrences starting 12/05/2024 until 01/04/2026 [facility] Work Phone: Comment on above: 1 Occurrences starting 12/05/2024 until 01/04/2026 End: 07-05-2023 Diagnostic mammography computer-aided detcj uni ALEJANDRO DIAGNOSTIC RT Radiology Routine Abnormal mammogram 1 Occurrences starting 06/05/2022 until 07/05/2023 [facility] Work Phone: Comment on above: 1 Occurrences starting 06/05/2022 until 07/05/2023 Erythrocyte mean corpuscular volume determination [facility] Erythrocyte mean corpuscular volume determination [facility] Erythrocyte mean corpuscular volume determination [facility] Erythrocyte mean corpuscular volume determination [facility] Erythrocyte mean corpuscular volume determination [facility] Fungus identified in Unspecified specimen by Culture [facility] Fungus identified in Unspecified specimen by Fungus stain [facility] Glucose [Mass/volume ] in Serum or Plasma [facility] Glucose [Mass/volume ] in Serum or Plasma [facility] Glucose [Mass/volume ] in Serum or Plasma [facility] Glucose [Mass/volume ] in Serum or Plasma [facility] Glucose [Mass/volume ] in Serum or Plasma [facility] Hematocrit [Volume Fraction] of Blood [facility] Hematocrit [Volume Fraction] of Blood [facility] Hematocrit [Volume Fraction] of Blood [facility] Hematocrit [Volume Fraction] of Blood [facility] Hematocrit [Volume Fraction] of Blood [facility] Hemoglobin [Mass/vol ume] in Blood [facility] Hemoglobin [Mass/vol ume] in Blood [facility] Hemoglobin [Mass/vol ume] in Blood [facility] Hemoglobin [Mass/vol ume] in Blood [facility] Hemoglobin [Mass/vol ume] in Blood [facility] Hemoglobin [Presence ] in Urine [facility] INR in Blood by Coagulation assay [facility] Leukocytes [#/volume ] in Blood [facility] Leukocytes [#/volume ] in Blood [facility] Leukocytes [#/volume ] in Blood [facility] Leukocytes [#/volume ] in Blood [facility] Leukocytes [#/volume ] in Blood [facility] Magnesium measurement [facility] Magnesium measurement [facility] End: 06-27-2024 ALEJANDRO DIAGNOSTIC RIGHT ALEJANDRO DIAGNOSTIC RIGHT Radiology Routine Abnormal mammogram 1 Occurrences starting 05/29/2023 until 06/27/2024 [facility] Work Phone: Comment on above: 1 Occurrences starting 05/29/2023 until 06/27/2024 End: 03-06-2024 ALEJANDRO SCREENING ALEJANDRO SCREENING Radiology Routine Encounter for screening mammogram for malignant neoplasm of breast 1 Occurrences starting 02/07/2023 until 03/06/2024 [facility] Work Phone: Comment on above: 1 Occurrences starting 02/07/2023 until 03/06/2024 Mean corpuscular hemoglobin concentration determination [facility] Mean corpuscular hemoglobin concentration determination [facility] Mean corpuscular hemoglobin concentration determination [facility] Mean corpuscular hemoglobin concentration determination [facility] Mean corpuscular hemoglobin concentration determination [facility] Mean corpuscular hemoglobin determination [facility] Mean corpuscular hemoglobin determination [facility] Mean corpuscular hemoglobin determination [facility] Mean corpuscular hemoglobin determination [facility] Mean corpuscular hemoglobin determination [facility] Measurement of keton es in urine using dipstick [facility] Measurement of renal function [facility] Measurement of renal function [facility] Measurement of renal function [facility] Measurement of renal function [facility] Measurement of renal function [facility] Microscopic observat ion [Identifier] in Unspecified specimen by Gram stain [facility] Microscopic urinalysis [facility] Neutrophil count [facility] Neutrophil count [facility] Neutrophil count [facility] Neutrophil count [facility] Neutrophil count [facility] Neutrophil percent differential count [facility] Neutrophil percent differential count [facility] Neutrophil percent differential count [facility] Neutrophil percent differential count [facility] Neutrophil percent differential count [facility] NM Heart Views W str ess and W radionuclide IV [facility] Patient Education [place] [facility] Work Phone: Patient referral [facility] Work Phone: pH of Urine [facility] Platelets [#/volume] in Blood [facility] Platelets [#/volume] in Blood [facility] Platelets [#/volume] in Blood [facility] Platelets [#/volume] in Blood [facility] Platelets [#/volume] in Blood [facility] Potassium measurement [facility] Potassium measurement [facility] Potassium measurement [facility] Potassium measurement [facility] Potassium measurement [facility] Red blood cell count [facility] Red blood cell count [facility] Red blood cell count [facility] Red blood cell count [facility] Red blood cell count [facility] Red cell distributio n width determination [facility] Red cell distributio n width determination [facility] Red cell distributio n width determination [facility] Red cell distributio n width determination [facility] Red cell distributio n width determination [facility] Serum chloride measurement [facility] Serum chloride measurement [facility] Serum chloride measurement [facility] Serum chloride measurement [facility] Serum chloride measurement [facility] Sodium measurement [facility] Sodium measurement [facility] Sodium measurement [facility] Sodium measurement [facility] Sodium measurement [facility] Specific gravity of Urine [facility] Total protein measurement [facility] Urea nitrogen [Mass/volume] in Serum or Plasma [facility] Urea nitrogen [Mass/volume] in Serum or Plasma [facility] Urea nitrogen [Mass/volume] in Serum or Plasma [facility] Urea nitrogen [Mass/volume] in Serum or Plasma [facility] Urea nitrogen [Mass/volume] in Serum or Plasma [facility] Urine blood test [facility] Urine culture [facility] Urine culture [facility] Urine dipstick for glucose [facility] Urine dipstick for leukocyte esterase [facility] Urine dipstick for nitrite [facility] Urine dipstick for protein [facility] Urine examination [facility] Urine microscopy: epithelial cells [facility] Urine Microscopy: wh ite cells [facility] Urobilinogen [Presen ce] in Urine [facility] End: 06-27-2024 US BREAST LTD RIGHT US BREAST LTD RIGHT Radiology Routine Abnormal mammogram 1 Occurrences starting 05/29/2023 until 06/27/2024 [facility] Work Phone: Comment on above: 1 Occurrences starting 05/29/2023 until 06/27/2024 End: 07-05-2023 Us breast uni real time with image limited US BREAST LTD RT Radiology Routine Abnormal mammogram 1 Occurrences starting 06/05/2022 until 07/05/2023 [facility] Work Phone: Comment on above: 1 Occurrences starting 06/05/2022 until 07/05/2023 US Carotid arteries [facility] Work Phone: US Carotid arteries [facility] US Carotid arteries [facility] US Carotid arteries [facility] End: 12-05-2023 US CAROTID ARTERIES [facility] US CAROTID ARTERIES [facility] Vascular Lab Routine Carotid atherosclerosis, bilateral 1 Occurrences starting 12/05/2022 until 12/05/2023 [facility] Work Phone: Comment on above: 1 Occurrences starting 12/05/2022 until 12/05/2023 US Heart [facility] Lower extremity artery [facility] soft tissue head & neck real time imge docm US THYROID/PARATHYROID Radiology Routine Multiple thyroid nodules 12/20/2023 9:38 AM EST [facility] Work Phone: Vancomycin [Mass/vol ume] in Serum or Plasma --trough [facility] Vancomycin [Mass/vol ume] in Serum or Plasma --trough [facility] Vancomycin [Mass/vol ume] in Serum or Plasma --trough [facility] Wound microscopy, cu lture and sensitivities [facility] Wound microscopy, cu lture and sensitivities [facility] Immunizations Immunization Date Immunization Notes Care Provider Lisa marie 09-05-2024 influenza, high dose seasonal, preservative-free Immunization [place] Work Phone: [facility] 09-05-2024 influenza virus vaccine, unspecified formulation Rishi Vasquez Work Phone: [facility] 08-31-2023 influenza (HD-IIV4) vaccine, age 65+ yr, high dose, quadrivalent, PF (FLUZONE HIGH-DOSE) Immunization [place] Work Phone: [facility] Work Phone: 08-31-2023 influenza virus vaccine, unspecified formulation Rishi Vasquez DO Work Phone: [facility] 06-04-2023 pneumococcal (PCV20) vaccine, 20 valent (PREVNAR 20) Rishi Vasquez DO Work Phone: [facility] Work Phone: 06-04-2023 pneumococcal Conjuga te, unspecified formulation Rishi Taterison DO Work Phone: [facility] Work Phone: 09-09-2022 influenza, high-dose , quadrivalent vaccine (FLUZONE HIGH DOSE QUADRIVALENT) Immunization [place] Work Phone: [facility] 09-09-2022 influenza virus vaccine, unspecified formulation Rishi Vasquez DO Work Phone: [facility] 09-10-2021 influenza, high-dose , quadrivalent vaccine (FLUZONE HIGH DOSE QUADRIVALENT) Yani Violeta S[employer] OPERATIONS SUPERVISOR.[facility] Work Phone: [facility] Work Phone: 09-10-2020 influenza, high-dose , quadrivalent vaccine (FLUZONE HIGH DOSE QUADRIVALENT) Yani Violeta SORT OPERATIONS SUPERVISOR[employer] Work Phone: [facility] Work Phone: 09-02-2019 influenza, high dose seasonal, preservative-free Yani Violeta S[employer] OPERATIONS SUPERVISOR.[employer] Work Phone: [facility] Work Phone: 08-28-2018 influenza, high dose seasonal, preservative-free Yani Violeta SORT OPERATIONS SUPERVISOR.[employer] Work Phone: [facility] Work Phone: 08-28-2018 pneumococcal polysaccharide vaccine, 23 valent Yani Violeta SORT OPERATIONS SUPERVISOR.[employer] Work Phone: [facility] Work Phone: 09-07-2017 influenza, high dose seasonal, preservative-free Yani Violeta SORT OPERATIONS SUPERVISOR.[facility] Work Phone: [facility] Work Phone: 09-01-2016 influenza, injectabl e, quadrivalent, preservative free Dr. Rishi Vasquez Work Phone: [facility] 09-01-2016 influenza, seasonal, injectable Dr. Rishi Vasquez Work Phone: [facility] 09-11-2014 influenza, seasonal, injectable Yani Violeta SORT OPERATIONS SUPERVISOR.[facility] Work Phone: [facility] Work Phone: 04-24-2013 tetanus toxoid, redu woody diphtheria toxoid, and acellular pertussis vaccine, adsorbed Yani Violeta SORT OPERATIONS SUPERVISOR.[facility] Work Phone: [facility] Work Phone: 01-03-2013 pneumococcal conjuga te vaccine, 13 valent Yani Violeta SORT OPERATIONS SUPERVISOR.[facility] Work Phone: [facility] Work Phone: 12-20-2012 pneumococcal polysaccharide vaccine, 23 valent Yani Violeta SORT OPERATIONS SUPERVISOR.[facility] Work Phone: [facility] Work Phone: Payers Date Payer Category Payer Self-pay [id number] 2022 [place] ([place] Care[place] [id number] 2022 Medicare [id number] 2020 Unknown MMO MMO MEDICARE SUPPLEMENT [id number] 2020-Present [phone] [address] [place] [address] Indemnity [id number] 2020 Unknown [id number]. [id number] 2017 Medicare MEDICARE MEDICAR E A AND B [id number] 2017-Present [phone] [address] [address] [place] [address] Medicare [id number] 2017 Medicare [id number] 2017 Private Health Insurance [facility] [id number] Medicare [id number] Unknown [id number] Unknown [id number] 2.16.840.1.630937.3.579.2. 462 Unknown [id number] 2.16.840.1.079027.3.579.2. 462 Unknown [id number] 2.16.840.1.804624.3.579.2. 462 Unknown [id number] 2.16.840.1.175977.3.579.2. 462 Unknown [id number] 2.16.840.1.603027.3.579.2. 462 Unknown [id number] 2.16.840.1.390050.3.579.2. 462 Unknown [id number] 2.16.840.1.376812.3.579.2. 462 Unknown [id number] 2.16.840.1.435649.3.579.2. 462 Unknown [id number] 2.16840.1.419487.3.579.2. 462 Unknown [id number] 2.16840.1.465042.3.579.2. 462 Unknown [id number] 2.840.1.758056.3.579.2. 462 Unknown [id number] 2.840.1.238728.3.579.2. 462 Unknown [id number] 2.840.1.737600.3.579.2. 462 Unknown [id number] 2.840.1.075734.3.579.2. 462 Unknown [id number] 2.840.1.879434.3.579.2. 462 Unknown [id number] 2.840.1.108072.3.579.2. 462 Unknown [id number] 2.840.1.083722.3.579.2. 462 Unknown [id number] 2.840.1.820368.3.579.2. 462 Unknown [id number] 2.840.1.860497.3.579.2. 462 Unknown [id number] 2.840.1.277745.3.579.2. 462 Unknown [id number] 2.840.1.883783.3.579.2. 462 Unknown [id number] 2.840.1.687974.3.579.2. 462 Unknown [id number] 2.840.1.930054.3.579.2. 462 Unknown [id number] 2.16.840.1.521221.3.579.2. 462 Unknown [id number] 2.16.840.1.656972.3.579.2. 462 Unknown [id number] 2.16.840.1.888192.3.579.2. 462 Unknown [id number] 2.16.840.1.073472.3.579.2. 462 Unknown [id number] 2.16.840.1.839475.3.579.2. 462 Unknown [id number] 2.16.840.1.638741.3.579.2. 462 Unknown [id number] 2.16840.1.632440.3.579.2. 462 Unknown [id number] 2.840.1.663396.3.579.2. 462 Unknown [id number] 2.840.1.123792.3.579.2. 462 Unknown [id number] 2.16840.1.875826.3.579.2. 462 Unknown [id number] 2.16.840.1.376165.3.579.2. 462 Unknown [id number] 2.840.1.214855.3.579.2. 462 Unknown [id number] 2.16840.1.722039.3.579.2. 462 Unknown [id number] 2.840.1.399593.3.579.2. 462 Unknown [id number] 2.16840.1.193922.3.579.2. 462 Unknown [id number] 2.16.840.1.163721.3.579.2. 462 Unknown [id number] 2.16.840.1.553385.3.579.2. 462 Unknown [id number] 2.16.840.1.528022.3.579.2. 462 Unknown [id number] 2.16840.1.048939.3.579.2. 462 Unknown [id number] 2.16.840.1.418337.3.579.2. 462 Unknown [id number] 2.16840.1.049423.3.579.2. 462 Unknown [id number] 2.16840.1.828800.3.579.2. 462 Unknown [id number] 2.16840.1.221453.3.579.2. 462 Unknown [id number] 2.16840.1.643074.3.579.2. 462 Unknown [id number] 2.840.1.406487.3.579.2. 462 Unknown [id number] 2.840.1.845955.3.579.2. 462 Unknown [id number] 2.840.1.138911.3.579.2. 462 Unknown [id number] 2.840.1.054619.3.579.2. 462 Unknown [id number] 2.840.1.716347.3.579.2. 462 Unknown [id number] 2.840.1.931719.3.579.2. 462 Unknown [id number] 2.840.1.558574.3.579.2. 462 Unknown [id number] 2.840.1.841157.3.579.2. 462 Unknown [id number] 2.840.1.591422.3.579.2. 462 Unknown [id number] 2.840.1.883894.3.579.2. 462 Unknown [id number] 2.16840.1.129943.3.579.2. 462 Unknown [id number] 2.840.1.141084.3.579.2. 462 Unknown [id number] 2.840.1.534172.3.579.2. 462 Unknown [id number] 2.16.840.1.260519.3.579.2. 462 Unknown [id number] 2.16.840.1.130161.3.579.2. 462 Unknown [id number] 2.16.840.1.129775.3.579.2. 462 Unknown [id number] 2.16.840.1.983039.3.579.2. 462 Unknown [id number] 2.16.840.1.054466.3.579.2. 462 Unknown [id number] 2.16.840.1.575294.3.579.2. 462 Unknown [id number] 2.16.840.1.201607.3.579.2. 462 Unknown [id number] 2.16.840.1.549945.3.579.2. 462 Unknown [id number] 2.16.840.1.741805.3.579.2. 462 Unknown [id number] 2.16.840.1.238491.3.579.2. 462 Unknown [id number] 2.16.840.1.045531.3.579.2. 462 Unknown [id number] 2.16.840.1.002677.3.579.2. 462 Unknown [id number] 2.16.840.1.298536.3.579.2. 462 Unknown [id number] 2.16.840.1.809723.3.579.2. 462 Unknown [id number] 2.16.840.1.429856.3.579.2. 462 Unknown [id number] 2.16.840.1.156605.3.579.2. 462 Unknown [id number] 2.16.840.1.512907.3.579.2. 462 Unknown [id number] 2.16.840.1.754017.3.579.2. 462 Unknown [id number] 2.16.840.1.027890.3.579.2. 462 Unknown [id number] 2.16.840.1.429366.3.579.2. 462 Unknown [id number] 2.16.840.1.501922.3.579.2. 462 Social History Date Type Detail Facility [facility] Work Phone: Start: 02-07-2022 End: 02-12-2024 Tobacco smoking status MTIS Unknown if ever smoked [facility] Start: 03-19-2021 None [facility] Start: 03-19-2021 Alone [facility] Start: 03-19-2021 Cigarettes [facility] Start: 1950 Sex Assigned At Female C [facility] Start: 01-13-2013 End: 06-12-2025 Tobacco smoking status MTIS Ex-smoker [facility] Start: 12-20-1967 End: 12-20-2012 History of tobacco use Current smoker [facility] Start: 12-20-1967 End: 12-20-2012 History of tobacco use Cigarette Smoker [facility] Start: 01-13-2013 End: 09-05-2024 Cigarettes smoked current (pack per day) - Reported 0.5 [facility] Start: 01-13-2013 End: 03-27-2025 Tobacco use and exposure Smokeless tobacco non-user [facility] Start: 12-02-2021 End: 03-27-2025 Alcohol intake Current non-drinker of alcohol (finding) [facility] Start: 12-01-2021 End: 12-02-2022 History SDOH Alcohol Frequency 1 [facility] Start: 12-01-2021 History SDOH Alcohol Std Drinks 98 [facility] Start: 12-01-2021 End: 12-02-2022 History SDOH Social Connections Phone 5 [facility] Start: 12-01-2021 End: 12-02-2022 History SDOH Social Connections Rastafarian 2 [facility] Start: 12-01-2021 End: 12-02-2022 History SDOH Social Connections Living 4 [facility] Start: 12-01-2021 End: 12-02-2022 History SDOH Physical Activity MPS 6 [facility] Start: 11-26-2019 Education 12 [facility] Start: 02-25-2022 End: 08-15-2022 Exposure to SARS-CoV-2 (event) Not sure [facility] Work Phone: Start: 12-02-2022 History SDOH Alcohol Std Drinks 0 [facility] Start: 12-01-2022 End: 09-05-2024 Social connection and isolation panel [facility] Do you belong to any clubs or organizations such as mormon groups, unions, fraternal or athletic groups, or school groups? No [facility] Are you now , , , , never or living with a partner? [facility] How often to you hav e a drink containing alcohol? Never [facility] How many standard drinks containing alcohol do you have on a typical day? Patient does not drink [facility] Do you feel stress - tense, restless, nervous, or anxious, or unable to sleep at night because your mind is troubled all the time - these days [OSQ] Only a little [facility] (I/We) worried whesusan er (my/our) food would run out before (I/we) got money to buy more. Never true [facility] Start: 08-26-2019 Gender identity Identifies as female gender (finding) [facility] Start: 08-16-2024 Sexual orientation Heterosexual (augusta joy) [facility] Do you feel stress - tense, restless, nervous, or anxious, or unable to sleep at night because your mind is troubled all the time - these days [OSQ] Not at all [facility] Start: 02-17-2025 End: 03-07-2025 Sex Female (finding) [facility] NEGATED: Highlighted row [facility] Medical Equipment Procedure Code Equipment Code Equipment Original Text Equipment Identifier Dates Debridement, wound FDA Start: 05-20-2025 Debridement, wound FDA Start: 05-20-2025 Debridement, wound FDA Start: 05-20-2025 Debridement, wound FDA Start: 05-20-2025 Debridement, wound FDA Start: 05-20-2025 Debridement, wound FDA Start: 05-20-2025 Debridement, wound FDA Start: 05-20-2025 Debridement, wound FDA Start: 05-20-2025 Debridement, wound FDA Start: 05-20-2025 Debridement, wound FDA Start: 05-20-2025 Debridement, wound FDA Start: 05-20-2025 Debridement, wound FDA Start: 05-20-2025 Debridement, wound FDA Start: 05-20-2025 Debridement, wound FDA Start: 05-20-2025 Debridement, wound FDA Start: 05-20-2025 Debridement, wound FDA Start: 05-20-2025 Debridement, wound FDA Start: 05-20-2025 Debridement, wound FDA Start: 05-20-2025 Debridement, wound FDA Start: 05-20-2025 Debridement, wound FDA Start: 05-20-2025 Creation, bypass, arterial, femoral to popliteal, using graft FDA Start: 05-26-2025 Creation, bypass, arterial, femoral to popliteal, using graft ()[id number] FDA Start: 05-26-2025 Creation, bypass, arterial, femoral to popliteal, using graft ()[id number] FDA Start: 05-26-2025 Creation, bypass, arterial, femoral to popliteal, using graft ()[id number] FDA Start: 05-26-2025 Creation, bypass, arterial, femoral to popliteal, using graft ()[id number] FDA Start: 05-26-2025 Creation, bypass, arterial, femoral to popliteal, using graft ()[id number] FDA Start: 05-26-2025 Creation, bypass, arterial, femoral to popliteal, using graft ()[id number] FDA Start: 05-26-2025 Creation, bypass, arterial, femoral to popliteal, using graft FDA Start: 05-26-2025 Creation, bypass, arterial, femoral to popliteal, using graft FDA Start: 05-26-2025 Creation, bypass, arterial, femoral to popliteal, using graft FDA Start: 05-26-2025 Creation, bypass, arterial, femoral to popliteal, using graft FDA Start: 05-26-2025 Creation, bypass, arterial, femoral to popliteal, using graft FDA Start: 05-26-2025 [id number] Start: 02-15-2022 End: 06-04-2024 Comment on above: Test blood sugar(s) one times daily. Dx: Other DM Code E11.51 Insulin: No Use as instructed Goals Date Patient Goal Desired Activity /State Functional Status Date Assessment Result Facility 06-30-2025 Functional status Bedrest [facility] Work Phone: 06-29-2025 Functional status With Assist of 1 [facility] Work Phone: 06-27-2025 Functional status Well [facility] Work Phone: 06-18-2025 Functional status Chair [facility] Work Phone: 06-16-2025 Functional status Ambulates;Bath room Privilege [facility] Work Phone: 06-15-2025 Functional status Fair [facility] Work Phone: 06-11-2025 Functional status Bedrest [facility] Work Phone: 06-10-2025 Functional status With Assist of 1 [facility] Work Phone: 06-09-2025 Functional status Bedrest [facility] Work Phone: 06-08-2025 Functional status Ambulates [facility] Work Phone: 06-01-2025 Functional status Ambulates [facility] Work Phone: 05-26-2025 Functional status With Assist of 1 [facility] Work Phone: 05-25-2025 Functional status Chair [facility] Work Phone: 05-21-2025 Functional status Chair [facility] Work Phone: 05-18-2025 Functional status Active [employer] [facility] Work Phone: 03-20-2025 Functional status Up ad praveen;Chair [facility] Work Phone: 03-19-2025 Functional status Well [facility] Work Phone: 03-11-2025 Functional status [facility] Work Phone: 03-11-2025 Functional status With Assist of 1 [facility] Work Phone: 03-11-2025 Functional status Rolling [facility] Work Phone: 03-10-2025 Functional status [facility] Work Phone: 06-09-2015 Are you deaf, or do you have serious difficulty hearing No 06/09/2015 3:01 PM Meka Delgado RN No [facility] 06-09-2015 Are you blind, or do you have serious difficulty seeing, even when wearing glasses No 06/09/2015 3:01 PM Meka Delgado RN No [facility] 06-09-2015 Do you have serious difficulty walking or climbing stairs No 06/09/2015 3:01 PM Meka Delgado RN No [facility] 06-09-2015 Do you have difficul ty dressing or bathing No 06/09/2015 3:01 PM Meka Delgado RN No [facility] 06-09-2015 Because of a physica l, mental, or emotional condition, do you have difficulty doing errands alone such as visiting a physician's office or shopping No 06/09/2015 3:01 PM Meka Delgado RN No [facility] Mental Status Date Assessment Result Facility 06-29-2025 Cognitive function Voice/Name [facility] Work Phone: 06-17-2025 Cognitive function Voice/Name [facility] Work Phone: 06-16-2025 Cognitive function Appropriate;C regina;Relaxe d [facility] Work Phone: 06-16-2025 Cognitive function Voice/Name [facility] Work Phone: 06-11-2025 Cognitive function Alert;Follows Commands [facility] Work Phone: 06-10-2025 Cognitive function Voice/Name [facility] Work Phone: 06-08-2025 Cognitive function Voice/Name [facility] Work Phone: 06-07-2025 Cognitive function Voice/Name [facility] Work Phone: 06-06-2025 Cognitive function Appropriate;Cooperativ e [facility] Work Phone: 06-05-2025 Cognitive function Awake;Alert;A ppropriate ;Follows Commands [facility] Work Phone: 06-01-2025 Cognitive function Voice/Name [facility] Work Phone: 05-25-2025 Cognitive function Voice/Name [facility] Work Phone: 05-21-2025 Cognitive function Voice/Name [facility] Work Phone: 05-18-2025 Cognitive function Voice/Name [facility] Work Phone: 03-20-2025 Cognitive function Voice/Name [facility] Work Phone: 03-11-2025 Cognitive function Voice/Name [facility] Work Phone: 01-20-2022 Cognitive function Voice/Name [facility] Work Phone: 06-09-2015 Because of a physica l, mental, or emotional condition, do you have serious difficulty concentrating, remembering, or making decisions No 06/09/2015 3:01 PM EDT Meka Baca RN No [facility] Clinical Notes 11-14-2017 to 06-29-2025 Note Date & Type Note Facility 06-29-2025 Discharge summary Note Date/Time June 29, 2025 7:52am [facility] Medical Records Department [address] [place] [address] Discharge Summary 06/29/25 0740 MR#: [id number] Acct: [id number] Name: GELY FULLER Rep #:[id number] : 1950 75 From: Phong Solomon MD PCP: Dr. Rishi Vasquez DO Status:AD M IN Location: [facility] TCU21-1 Providers Date of Admission: 06/01/25 Primary Care Physician: Dr. Rishi Vasquez, DO Consultations 06/01/25 18:53 Consult: Onc/Wound/box bender Routine Comment: Reason for Consult:: BLE skin graft sites and open areas to buttocks and coccyx 06/03/25 17:22 Consult: Gastroenterology Routine Consulting Provider: [facility] Reason for Consult: Anemia, +Hemoccult. EMERGENT Consult: No MD Notified: Yes Date Notified: 06/03/25 Time Notified: 17:22 Method of Notification: Text Consult: Podiatry Routine Consulting Provider: Patel Irene Reason for Consult: Left foot osteomyelitis. EMERGENT Consult: No MD Notified: Yes Date Notified: 06/03/25 Time Notified: 17:23 Method of Notification: Text 06/04/25 09:22 Consult: Infectious Disease Routine Consulting Provider: Kwaku Mendoza Reason for Consult: wound cultures EMERGENT Consult: No MD Notified: Yes Date Notified: 06/04/25 Time Notified: 09:23 Method of Notification: Text 06/19/25 13:56 Consult: Vascular Surgery Routine Consulting Provider: Abena Fiore Reason for Consult: RUE PICC DVT; anemia, +hemoccult, aspirin/plavix, treatment option? EMERGENT Consult: No MD Notified: Yes Date Notified: 06/19/25 Time Notified: 14:34 Method of Notification: Verbal Reason For Visit: GENERALIZED WEAKNESS Diagnosis Discharge Diagnosis (1) Deep vein thrombosis of right upper extremity: Status: Acute Code(s): I82.621 - Acute embolism and thrombosis of deep veins of right upper extremity (2) PAOD (peripheral arterial occlusive disease): Status: Acute Code(s): I77.9 - Disorder of arteries and arterioles, unspecified (3) Anemia: Status: Acute Code(s): D64.9 - Anemia, unspecified (4) Chronic osteomyelitis of left foot: Status: Chronic Code(s): M86.672 - Other chronic osteomyelitis, left ankle and foot Plan 75 year old female with below past medical history hospitalized for fall, recentmrsa bacteremia, underwent left lower extremity revascularization 05/26/[address] Clement, admitted to TCU with debility, here for rehabilitation, strengthening, prior to discharge home alone. * Debility - PT/OT. * Pain - Tylenol 1000mg q6 prn pain (1-3), Oxycodone 5mg q4 prn pain (4-10). * Bowel - senna/colace 2 tablets bid, Magnesium citrate 300mL daily prn. * Adult immunization - Administer pneumonia vaccine, covid vaccine, flu vaccine as appropriate. * DVT prophylaxis - Hold, on DAPT. * Hypertension - Metoprolol succinate 12.5mg daily, Amlodipine 5mg daily. * Iron deficiency anemia - Vitamin C 1000mg daily, Ferrous sulfate 325mg daily. * PAOD s/p left lower extremity revascularization - Aspirin 81mg daily, Plavix 75mg daily. * Hyperlipidemia - Atorvastatin 10ng qhs, [place] 3 1 gram daily. * Indigestion - TUMS 500mg daily. * Diabetes Mellitus II - Glimepiride 2mg bid. * GI prophylaxis - Lactobacillus 1 capsule daily. * Skin irritation - Calomseptine topical bid. * Nutrition - MVI 1 tablet daily. * Diabetic polyneuropathy - Lyrica 100mg tid, Neuropathy pain cream 2 clicks topical bid. * Tinea Corporis - Nystatin topical bid. * Postoperative anemia - check stool for blood, transfuse 1 unit prbc. Medications at Discharge Home Medications aspirin 81 [...] 2 mg tablet 2 mg PO BID Diabetes 05/18/25 menthol 0.44 %-zinc oxide 20.6 % topical ointment (Calmoseptine) 1 applic topical BID Skin Irritation #0 grams 05/28/25 oxycodone 5 mg tablet 5 mg PO Q4H PRN PRN Pain Score 4-10 #0 tabs 05/28/25 Hospital Course Operations - (See below.) Procedures None and EGD Summary of Care Provided Minutes Spent on Discharge: 35 Hospital Course: 75 year old female with below past medical history hospitalized for fall, recentmrsa bacteremia, underwent left lower extremity revascularization 05/26/[address] Clement, admitted to TCU with debility, here for rehabilitation, strengthening, prior to discharge home alone. 06/05/2025 Dr. Yanez EGD: Impressions : - LA Grade D erosive esophagitis with bleeding. Treated with a heater probe. - Non-bleeding gastric ulcers with no stigmata of bleeding. Biopsied. - Oozing duodenal ulcers with a visible vessel. Treated with a heater probe. - Two non-bleeding angiodysplastic lesions in the duodenum. Treated with a heater probe. Recommendations : - Return patient to referring hospital. - Use Protonix (pantoprazole) 40 mg PO BID for 3 months. - Use sucralfate tablets 1 gram PO BID for 1 month. - Continue present medications. 06/09/2025 Fever. 06/10/2025 Dr. Mendoza PLAN: Recent wound cx with MRSA, Acinetobacter, prevotella, and anaerobes. Now with fever, worsened ankle wound, cxs sent. Stool and resp panel pending. Willorder picc and iv vanc/ceftriaxone/flagyl. 06/16/2025 Dr. Mendoza, diarrhea positive for c. diff. PLAN: Prior wound cx with MRSA, Acinetobacter, prevotella, and anaerobes. Developed fever, worsened ankle wound, cxs sent. Now cdiff (+). Started po vanc. Wound cx with MRSA, AcB, steno. Will change to iv vanc, unasyn, and levaquin. Cont po vanc. 06/19/2025 Doppler ultrasound right upper extremity acute dvt right subclavian vein. 06/19/2025 Abena Fiore (Vascular Surgery) consulted acute dvt right subclavian vein, right upper extremity PICC line. Plan For management of her RUE DVT, options for management would be to initiate full anticoagulation with therapeutic lovenox dosing (for her, 80mg SC Q12 hours) andclose monitoring of her Hgb with daily H&H initially given recent GI bleed (withlesions treated with cautery and stable Hgb since then) or prophylactic lovenox dosing and removing PICC line and replacing in the LUE. I discussed her case with Dr. Solomon and also discussed both options with patient including risks and benefits with each. Gely indicated she really did not want to have the PICC line moved if possible and comfortable to try the therapeutic anticoagulation with close monitoring. In discussion with Dr. Solomon, his preference was also to trial therapeutic dosing given difficulty of obtaining this initial PICC line and the understanding that she requires IV antibiotic therapy for potentially anadditional 6 weeks. Orders placed for lovenox and H&H to monitor. Discharge to [facility] 06/30/2025 for following: She is scheduled for R femoral endarterectomy, R femoral-tibial bypass, and R sartorius flap on 06/30/25. She does wish to proceed as scheduled. She will need to be NPO after midnight prior, she will need to hold 2 doses of Lovenox (night prior 06/29 and morning of 06/30) prior to surgery, and due to her chronic anemia and anticipated blood loss will plan Type + Screen Sunday with plan to get 2 units PRBC on hold for surgery. These orders have all been placed/updated. Please message/call myself or Dr. Clement with any questions regarding these orders. Physical Exam Const alert General Appearance: cooperative HEENT normocephalic Eyes PERRL and EOMs intact bilaterally Neck supple, no JVD and no carotid bruits Resp normal respiratory effort, normal air movement and clear to auscultation bilaterally Cardio regular rate and regular rhythm GI normal to inspection, nondistended, normoactive bowel sounds, non-tender and non-distended Extremity normal capillary refill Extremity Narrative: Left lower extremity dressed, boot. Right upper extremity PICC line. General Extremity: Negative for edema Skin no rashes or lesions noted General Skin Exam: no breakdown Psych affect normal Appearance: appropriate Weight / BMI Weight Weight: 79.197 kg Body Mass Index (BMI) 28.1 ABG / Lab / Microbiology Data 06/29/25 05:24 06/23/25 05:50 Laboratory: Laboratory Results - last 24 hr 06/28/25 16:50: POC Glucose 117 H 06/28/25 20:52: Vancomycin Trough 19.9 H 06/29/25 05:24: Hgb 8.3 L, Hct 26.4 L, Blood Type A POSITIVE, Antibody Screen NEGATIVE, Crossmatch See Detail 06/29/25 06:23: POC Glucose 118 H Microbiology: Microbiology 06/16/25 20:50 Stool Stool Occult Blood (ERICA) - Final Occult Blood Positive 06/10/25 11:36 Blood Culture (Wb) - Anticubital Right Blood Culture - Final No growth in 5 days. 06/10/25 11:29 Blood Culture (Wb) - Anticubital Left Blood Culture - Final No growth in 5 days. 06/10/25 13:30 Wound Drainage - Aerobic & Anaerobic Swabs Gram Stain - Final 06/10/25 13:30 Wound Drainage - Aerobic & Anaerobic Swabs Wound Culture - Final Stenotrophomonas maltophilia Acinetobacter baumannii Meth. resistant Staph. aureus 06/10/25 13:30 Wound Drainage - Aerobic & Anaerobic Swabs Anaerobic Culture - Final No anaerobic bacteria isolated. 06/10/25 11:25 Urine Catheter - Catheter Urine Culture - Final Enterobacter asburiae 06/10/25 13:15 Stool C. difficile GDH Antigen & Toxins - Final Toxigenic C. difficile 06/10/25 13:15 Stool Clostridioides difficile (PCR) - Final 06/10/25 10:48 Mucosa - Nasopharyngeal Respiratory Panel (PCR) - Final 06/10/25 11:32 Nasal Secretion SARS-CoV-2 Antigen (Rapid) - Final 06/03/25 Unknown Stool Stool Occult Blood (ERICA) - Final Occult Blood Positive D/C Instructions Discharge Activity: Return to Normal Activity Weight Bearing Status: Weight bearing as tolerated Call your doctor if you observe: Fever of 101 or Higher, Inability to urinate, Inability to have a bowel movement, Shortness of breath, Dizziness, Fainting spells, Swelling in the ankles, Chest pain and Uncontrolled pain DC O2, CPAP, BIPAP Needs Home O2 Discharge instructions: No Additional Instructions: Discharge to [facility] 06/30/2025 right lower extremity vascular surgery. Please Follow Up With: Patel Irene DPM Meaningful Use Info Meaningful Use Meaningful Use Diagnoses (Choose all that apply): None applicable Discharge Plan Admission Admit Date/Time: 06/01/25 18:21 Primary Reason for Your Visit: Debility. Attending Provider: Phong Solomon Chi Primary Care Provider: Rishi Vasquez Consulting Providers: Patel Irene; Kwaku Mendoza; Abena Fiore Instructions Additional Instructions / Restrictions: Discharge to [facility] 06/30/2025 right lower extremity vascular surgery. Discharge Orders/Prescriptions Prescriptions: No Action calcium carbonate [Calcium 600] [...] 325 MG tablet 325 mg PO DAILY menthol-zinc oxide [Calmoseptine] 0.44-20.6 % Ointment 1 applic topical BID Qty: 0 0RF Protocol: *Topical Application Instructions APPLICATION INSTRUCTIONS: groin oxycodone 5 mg Tablet 5 mg PO Q4H PRN PRN (Reason: Pain Score 4-10) Qty: 0 0RF pregabalin 100 mg capsule 100 mg PO [...] Rishi Vasquez DO [Primary Care Provider] - Disposition Disposition (needs filled in before D/C Order can be placed): [facility] 06/29/25 0752 <Electronically signed by Phong Solomon MD> Cosigner Signature (if applicable): CC: Dr. Rishi Vasquez DO; Dr. Phong Solomon MD~ Signed [facility] Work Phone: 1(390) 361-660508-11-2025 Consult note Author Rick Barth [facility] Note Date/Time June 29, 2025 2: 25am [facility] Medical Records Department [address] [place] [address] Pharmacokinetic/Renal -Consult 06/29/25 0224 MR#: [id number] Acct: [id number] Name: GELY FULLER Rep #:[id number] : 1950 75 From: Rick Anders od PCP: Dr. Rishi Vasquez DO Status:AD M IN Y Location: [place] [address] Consult Antibiotic Management Pharmacy has been consulted to manage selected antibiotic: Vancomycin Type of Intervention Type of Consult: Follow-up Labs Labs: Sodium 144 mmol/L (133-145) 06/23/25 05:50 Potassium 3.7 mmol/L (3.3-5.1) 06/23/25 05:50 Chloride 112 mmol/L (98-108) H 06/23/25 05:50 Carbon Dioxide 23.0 mmol/L (21.0-32.0) 06/23/25 05:50 Anion Gap 9 (5-15) 06/23/25 05:50 BUN 42 mg/dL (4-19) H 06/23/25 05:50 Creatinine 0.90 mg/dL (0.70-1.20) 06/23/25 05:50 Est GFR (MDRD) Non-Af 68 (>60) 06/23/25 05:50 BUN/Creatinine Ratio 46.7 RATIO (10-20) H 06/23/25 05:50 Glucose 78 mg/dL (70-99) 06/23/25 05:50 Vancomycin Trough 19.9 ug/mL (5.0-15.0) H 06/28/25 20:52 Random Vancomycin 16.7 ug/mL (0.0-15.0) H 06/20/25 19:20 Microbiology Microbiology: Microbiology 06/16/25 20:50 Stool Stool Occult Blood (ERICA) - Final Occult Blood Positive 06/10/25 11:36 Blood Culture (Wb) - Anticubital Right Blood Culture - Final No growth in 5 days. 06/10/25 11:29 Blood Culture (Wb) - Anticubital Left Blood Culture - Final No growth in 5 days. 06/10/25 13:30 Wound Drainage - Aerobic & Anaerobic Swabs Gram Stain - Final 06/10/25 13:30 Wound Drainage - Aerobic & Anaerobic Swabs Wound Culture - Final Stenotrophomonas maltophilia Acinetobacter baumannii Meth. resistant Staph. aureus 06/10/25 13:30 Wound Drainage - Aerobic & Anaerobic Swabs Anaerobic Culture - Final No anaerobic bacteria isolated. 06/10/25 11:25 Urine Catheter - Catheter Urine Culture - Final Enterobacter asburiae 06/10/25 13:15 Stool C. difficile GDH Antigen & Toxins - Final Toxigenic C. difficile 06/10/25 13:15 Stool Clostridioides difficile (PCR) - Final 06/10/25 10:48 Mucosa - Nasopharyngeal Respiratory Panel (PCR) - Final 06/10/25 11:32 Nasal Secretion SARS-CoV-2 Antigen (Rapid) - Final 06/03/25 Unknown Stool Stool Occult Blood (ERICA) - Final Occult Blood Positive Goal Trough Goal Trough: 15-20 mcg/mL Pharmacy Plan for Drug Dosing Pharmacy Plan for Drug Dosing: Pharmacy Service will continue to monitor and adjust dosing as required. TROUGH 19.9 @ 22.5 HOURS. NO CHANGES, FOLLOW UP TROUGH IN 4 DAYS Follow-Up Labs Follow-Up Labs: Trough: Vancomycin Date/Time Labs Ordered Labs to be done on [date and time ordered]: 07/02 @ 2100 06/29/25 0225 <Electronically signed by Rick ramirez> Date _ Rick Jules Signature (if applicable): Date CC: ~ Signed [facility] Work Phone: 1(417) 217-612408-09-2025 Progress note Author Abena Fiore [facility] Note Date/Time June 27, 2025 9:0 1am [facility] Medical Records Department [address] [place] [address] Progress Note - Surgery 06/25/25901 MR#: [id number] Acct: [id number] Name: GELY FULLER Rep #:[id number] : 1950 75 From: Abena VYAS PCP: Dr. Rishi Vasquez, DO Status:AD M IN Location: [facility] TCU21-1 Subjective Subjective I saw Gely sitting up in the bedside chair this morning. Her RUE edema was stable. She has not noticed any adverse effects from the Lovenox to this point, no melena/hematochezia, hematuria. Her Hgb has been overall stable this last week. Reviewed wound pictures; she reports good bleeding from LLE wound with debridement yesterday. L groin incision site appears stable, she has not noted much drainage. She reports stable intermittent lateral L thigh pain with certain movements. Continued LLE heaviness and swelling. She reports she talked with her brother last night and has considered further herself, she does wish to proceed with RLE revascularization as scheduled 06/30/25. Objective Data Objective Data Vital Signs: Vital Signs Temp Pulse Resp BP Pulse Ox O2 Del Method 98.1 F 54 L 16 130/40 H 97 Room Air 06/24/25 10:57 06/24/25 10:57 06/24/25 10:57 06/24/25 10:57 06/24/25 10:57 06/24/25 10:57 Oxygen Delivery Method Room Air Weight: 174 lb 9.6 oz Body Mass Index (BMI) 28.1 Intake & Output: Intake and Output for Last 24 Hours 06/23/25 06/24/25 06/25/25 23:59 23:59 23:59 Intake Total 1830 / 1830 1460 / 1460 100 / 100 Balance 1830 / 1830 1460 / 1460 100 / 100 Lab / Micro Data 06/24/25 10:45 06/23/25 05:50 Labs: Laboratory Results - last 24 hr 06/24/25 10:45: Hgb 8.6 L, Hct 27.6 L 06/24/25 20:47: Vancomycin Trough 18.9 H 06/25/25 05:47: POC Glucose 79 Micro: Microbiology 06/16/25 20:50 Stool Stool Occult Blood (ERICA) - Final Occult Blood Positive 06/10/25 11:36 Blood Culture (Wb) - Anticubital Right Blood Culture - Final No growth in 5 days. 06/10/25 11:29 Blood Culture (Wb) - Anticubital Left Blood Culture - Final No growth in 5 days. 06/10/25 13:30 Wound Drainage - Aerobic & Anaerobic Swabs Gram Stain - Final 06/10/25 13:30 Wound Drainage - Aerobic & Anaerobic Swabs Wound Culture - Final Stenotrophomonas maltophilia Acinetobacter baumannii Meth. resistant Staph. aureus 06/10/25 13:30 Wound Drainage - Aerobic & Anaerobic Swabs Anaerobic Culture - Final No anaerobic bacteria isolated. 06/10/25 11:25 Urine Catheter - Catheter Urine Culture - Final Enterobacter asburiae 06/10/25 13:15 Stool C. difficile GDH Antigen & Toxins - Final Toxigenic C. difficile 06/10/25 13:15 Stool Clostridioides difficile (PCR) - Final 06/10/25 10:48 Mucosa - Nasopharyngeal Respiratory Panel (PCR) - Final 06/10/25 11:32 Nasal Secretion SARS-CoV-2 Antigen (Rapid) - Final 06/03/25 Unknown Stool Stool Occult Blood (ERICA) - Final Occult Blood Positive Physical Exam Const alert, oriented x3 and no apparent distress HEENT normocephalic, head/scalp atraumatic and external nose normal Eyes General Eye: normal appearance of both eyes Neck General: normal visual inspection Resp normal respiratory effort Effort and Inspection: able to speak in complete sentences Extremity Extremity Narrative: RUE with 1+ edema Neuro Speech: speech normal Psych mental status grossly normal Appearance: grossly normal Assessment & Plan Assessment/Plan (1) Deep vein thrombosis of right upper extremity: (2) PAOD (peripheral arterial occlusive disease): (3) Anemia: (4) Chronic osteomyelitis of left foot: PLAN: Plan She has been tolerating the Lovenox well so far at therapeutic dosing; Hgb has been stable around 8.5 this past week and she reports no signs of bleeding. Willcontinue with Lovenox at current dosing as long as it remains well tolerated andno recurrent GI bleeding. She is scheduled for R femoral endarterectomy, R femoral-tibial bypass, and R sartorius flap on 06/30/25. She does wish to proceed as scheduled. She will need to be NPO after midnight prior, she will need to hold 2 doses of Lovenox (night prior 06/29 and morning of 06/30) prior to surgery, and due to her chronic anemia and anticipated blood loss will plan Type + Screen Sunday with plan to get 2 units PRBC on hold for surgery. These orders have all been placed/updated. Please message/call myself or Dr. Clement with any questions regarding these orders. Charges/Coding Procedures Integumentary 111xxx-113xx: [id number] Global Visit 06/25/25 1736 <Electronically signed by Abena VYAS> Cosigner Signature (if applicable): 06/27/25 0901 <Electronically signed by Russell Clement MD> CC: ~ Signed [facility] Work Phone: 1(734) 262-116008-08-2025 Consult note Author Rick Barth [facility] Note Date/Time June 26, 2025 9:4 9pm [facility] Medical Records Department [address] [place] [address] Pharmacokinetic/Renal -Consult 06/26/252146 MR#: [id number] Acct: [id number] Name: GELY FULLER Melinda Rep #:[id number] : 1950 75 From: Rick Anders od PCP: Dr. Rishi Vasquez, DO Status:AD M IN Y Location: [place] [address] Consult Antibiotic Management Pharmacy has been consulted to manage selected antibiotic: Vancomycin Type of Intervention Type of Consult: Follow-up Labs Labs: Sodium 144 mmol/L (133-145) 06/23/25 05:50 Potassium 3.7 mmol/L (3.3-5.1) 06/23/25 05:50 Chloride 112 mmol/L (98-108) H 06/23/25 05:50 Carbon Dioxide 23.0 mmol/L (21.0-32.0) 06/23/25 05:50 Anion Gap 9 (5-15) 06/23/25 05:50 BUN 42 mg/dL (4-19) H 06/23/25 05:50 Creatinine 0.90 mg/dL (0.70-1.20) 06/23/25 05:50 Est GFR (MDRD) Non-Af 68 (>60) 06/23/25 05:50 BUN/Creatinine Ratio 46.7 RATIO (10-20) H 06/23/25 05:50 Glucose 78 mg/dL (70-99) 06/23/25 05:50 Vancomycin Trough 19.9 ug/mL (5.0-15.0) H 06/26/25 20:50 Random Vancomycin 16.7 ug/mL (0.0-15.0) H 06/20/25 19:20 Microbiology Microbiology: Microbiology 06/16/25 20:50 Stool Stool Occult Blood (ERICA) - Final Occult Blood Positive 06/10/25 11:36 Blood Culture (Wb) - Anticubital Right Blood Culture - Final No growth in 5 days. 06/10/25 11:29 Blood Culture (Wb) - Anticubital Left Blood Culture - Final No growth in 5 days. 06/10/25 13:30 Wound Drainage - Aerobic & Anaerobic Swabs Gram Stain - Final 06/10/25 13:30 Wound Drainage - Aerobic & Anaerobic Swabs Wound Culture - Final Stenotrophomonas maltophilia Acinetobacter baumannii Meth. resistant Staph. aureus 06/10/25 13:30 Wound Drainage - Aerobic & Anaerobic Swabs Anaerobic Culture - Final No anaerobic bacteria isolated. 06/10/25 11:25 Urine Catheter - Catheter Urine Culture - Final Enterobacter asburiae 06/10/25 13:15 Stool C. difficile GDH Antigen & Toxins - Final Toxigenic C. difficile 06/10/25 13:15 Stool Clostridioides difficile (PCR) - Final 06/10/25 10:48 Mucosa - Nasopharyngeal Respiratory Panel (PCR) - Final 06/10/25 11:32 Nasal Secretion SARS-CoV-2 Antigen (Rapid) - Final 06/03/25 Unknown Stool Stool Occult Blood (ERICA) - Final Occult Blood Positive Goal Trough Goal Trough: 15-20 mcg/mL Pharmacy Plan for Drug Dosing Pharmacy Plan for Drug Dosing: Pharmacy Service will continue to monitor and adjust dosing as required. TROUGH 19.9 @ 22 HOURS. NO CHANGES, FOLLOW UP TROUGH IN 2 DAYS Follow-Up Labs Follow-Up Labs: Trough: Vancomycin Date/Time Labs Ordered Labs to be done on [date and time ordered]: 06/28 @ 2100 06/26/252148 <Electronically signed by Rick ramirez> Date _ Rick Jules Signature (if applicable): Date CC: ~ Signed [facility] Work Phone: 1(269) 950-615308-07-2025 Consult note Author Rick [facility] Note Date/Time June 25, 2025 1:4 4am [facility] [facility] Medical Records Department [address] [place] [address] Pharmacokinetic/Renal -Consult 06/25/25 0143 MR#: [id number] Acct: [id number] Name: GELY FULLER Melinda Rep #:[id number] : 1950 75 From: Rick Anders od PCP: Dr. Rishi Vasquez, DO Status:AD M IN Y Location: [place] [address] Consult Antibiotic Management Pharmacy has been consulted to manage selected antibiotic: Vancomycin Type of Intervention Type of Consult: Follow-up Labs Labs: Sodium 144 mmol/L (133-145) 06/23/25 05:50 Potassium 3.7 mmol/L (3.3-5.1) 06/23/25 05:50 Chloride 112 mmol/L (98-108) H 06/23/25 05:50 Carbon Dioxide 23.0 mmol/L (21.0-32.0) 06/23/25 05:50 Anion Gap 9 (5-15) 06/23/25 05:50 BUN 42 mg/dL (4-19) H 06/23/25 05:50 Creatinine 0.90 mg/dL (0.70-1.20) 06/23/25 05:50 Est GFR (MDRD) Non-Af 68 (>60) 06/23/25 05:50 BUN/Creatinine Ratio 46.7 RATIO (10-20) H 06/23/25 05:50 Glucose 78 mg/dL (70-99) 06/23/25 05:50 Vancomycin Trough 18.9 ug/mL (5.0-15.0) H 06/24/25 20:47 Random Vancomycin 16.7 ug/mL (0.0-15.0) H 06/20/25 19:20 Microbiology Microbiology: Microbiology 06/16/25 20:50 Stool Stool Occult Blood (ERICA) - Final Occult Blood Positive 06/10/25 11:36 Blood Culture (Wb) - Anticubital Right Blood Culture - Final No growth in 5 days. 06/10/25 11:29 Blood Culture (Wb) - Anticubital Left Blood Culture - Final No growth in 5 days. 06/10/25 13:30 Wound Drainage - Aerobic & Anaerobic Swabs Gram Stain - Final 06/10/25 13:30 Wound Drainage - Aerobic & Anaerobic Swabs Wound Culture - Final Stenotrophomonas maltophilia Acinetobacter baumannii Meth. resistant Staph. aureus 06/10/25 13:30 Wound Drainage - Aerobic & Anaerobic Swabs Anaerobic Culture - Final No anaerobic bacteria isolated. 06/10/25 11:25 Urine Catheter - Catheter Urine Culture - Final Enterobacter asburiae 06/10/25 13:15 Stool C. difficile GDH Antigen & Toxins - Final Toxigenic C. difficile 06/10/25 13:15 Stool Clostridioides difficile (PCR) - Final 06/10/25 10:48 Mucosa - Nasopharyngeal Respiratory Panel (PCR) - Final 06/10/25 11:32 Nasal Secretion SARS-CoV-2 Antigen (Rapid) - Final 06/03/25 Unknown Stool Stool Occult Blood (ERICA) - Final Occult Blood Positive Goal Trough Goal Trough: 15-20 mcg/mL Pharmacy Plan for Drug Dosing Pharmacy Plan for Drug Dosing: Pharmacy Service will continue to monitor and adjust dosing as required. TROUGH 18.9 @ 24 HOURS. NO CHANGES, FOLLOW UP TROUGH IN 2 DAYS Follow-Up Labs Follow-Up Labs: Trough: Vancomycin Date/Time Labs Ordered Labs to be done on [date and time ordered]: 06/26 @ 2100 06/25/25 0144 <Electronically signed by Rick ramirez> Date _ Rick Barth Cosigner Signature (if applicable): Date CC: ~ Signed [facility] Work Phone: 1(955) 848-985108-06-2025 Progress note Author Paetl Irene [facility] Note Date/Time June 24, 2025 4:2 7pm [facility] Medical Records Department [address] [place] [id number] Progress Note - Surgery 06/24/25 1303 MR#: [id number] Acct: [id number] Name: GELY FULLER Rep #:[id number] : 1950 75 From: Patel LOBO PCP: Dr. Rishi Vasquez, DO Status:AD M IN Location: [facility] TCU21-1 Subjective Subjective Ms. Fuller is a 75-year-old diabetic female seen at the transitional care unit today for dressing changes and debridement of full-thickness wounds of bilateralextremity. Patient is doing well. She is getting IV antibiotics on schedule. She denies any pain to the bilateral extremity. She is interested in new surgical shoes. No acute events overnight. No other pedal complaints at this time. Objective Data Objective Data Vital Signs: Vital Signs Temp Pulse Resp BP Pulse Ox O2 Del Method 98.1 F 54 L 16 130/40 H 97 Room Air 06/24/25 10:57 06/24/25 10:57 06/24/25 10:57 06/24/25 10:57 06/24/25 10:57 06/24/25 10:57 Oxygen Delivery Method Room Air Weight: 79.197 kg Body Mass Index (BMI) 28.1 Intake & Output: Intake and Output for Last 24 Hours 06/22/25 06/23/25 06/24/25 23:59 23:59 23:59 Intake Total 1140 / 1140 1830 / 1830 200 / 200 Balance 1140 / 1140 1830 / 1830 200 / 200 Lab / Micro Data 06/24/25 10:45 06/23/25 05:50 Labs: Laboratory Results - last 24 hr 06/23/25 16:43: POC Glucose 115 H 06/24/25 06:15: POC Glucose 64 L 06/24/25 10:45: Hgb 8.6 L, Hct 27.6 L Micro: Microbiology 06/16/25 20:50 Stool Stool Occult Blood (ERICA) - Final Occult Blood Positive 06/10/25 11:36 Blood Culture (Wb) - Anticubital Right Blood Culture - Final No growth in 5 days. 06/10/25 11:29 Blood Culture (Wb) - Anticubital Left Blood Culture - Final No growth in 5 days. 06/10/25 13:30 Wound Drainage - Aerobic & Anaerobic Swabs Gram Stain - Final 06/10/25 13:30 Wound Drainage - Aerobic & Anaerobic Swabs Wound Culture - Final Stenotrophomonas maltophilia Acinetobacter baumannii Meth. resistant Staph. aureus 06/10/25 13:30 Wound Drainage - Aerobic & Anaerobic Swabs Anaerobic Culture - Final No anaerobic bacteria isolated. 06/10/25 11:25 Urine Catheter - Catheter Urine Culture - Final Enterobacter asburiae 06/10/25 13:15 Stool C. difficile GDH Antigen & Toxins - Final Toxigenic C. difficile 06/10/25 13:15 Stool Clostridioides difficile (PCR) - Final 06/10/25 10:48 Mucosa - Nasopharyngeal Respiratory Panel (PCR) - Final 06/10/25 11:32 Nasal Secretion SARS-CoV-2 Antigen (Rapid) - Final 06/03/25 Unknown Stool Stool Occult Blood (ERICA) - Final Occult Blood Positive Physical Exam Narrative Vascular: DP and PT pulse are palpable to the bilateral extremity. CFT is brisk. No erythema appreciated. Skin temperature is warm to warm from proximalankles to distal digit bilateral. Neurological: Light touch intact. Patient does not monitor painful stimuli. Dermatological: Right lateral heel full-thickness wound measures 1.8 x 1.5 x 0.2 cm. Granular tissue no sign of infection. Left medial ankle full-thickness wound measures 2.5 x 2.3 x 0.2 cm. Evidence ofexposed tendon with no sign of infection. Left heel full-thickness wound measuring 8.0 x 7.0 x 0.2 cm. Granular tissue with no sign of infection. Left lateral foot full-thickness wound measuring 1.0 x 1.5 x 0.3 cm. Granular tissue with no sign of infection Left posterior lower leg full-thickness wound measuring 0.5 x 0.7 x 0.1 cm. Granular tissue with no sign of infection Musculoskeletal: Mild pain to palpation to the right lateral heel wound. No pain to palpation to the remaining wounds to the left lower extremity. No pain with calf pressure. Const oriented x3 and no apparent distress Assessment & Plan Assessment/Plan (1) 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 foot with fat layer exposed: PLAN: Patient was examined and evaluated. All findings were discussed with the patient. All questions were answered to the patient satisfaction. Wound measurements: (All measurements postdebridement) Right lateral heel full-thickness wound measures 1.8 x 1.5 x 0.2 cm. Left medial ankle full-thickness wound measures 2.5 x 2.3 x 0.2 cm. Left heel full-thickness wound measuring 8.0 x 7.0 x 0.2 cm. Left lateral foot full-thickness wound measuring 1.0 x 1.5 x 0.3 cm. Left posterior lower leg full-thickness wound measuring 0.5 x 0.7 x 0.1 cm. The bilateral lower extremities are clean and patted dry. Dakin soaked gauze was applied to all full-thickness wounds followed by dry sterile dressing and single-layer Rick compression bandages were donned to the bilateral extremity. Dressing change was performed daily to every other day by wound care nurse. I did discuss with the patient that if she shows evidence of slow healing I would recommend taking her back to the operating room to perform ultrasonic debridement with skin graft substitute which she is understanding of. Patient is planning to have possible revascularization to right lower extremity so we will plan around that procedure. Medicine: On board, medical management Infectious disease: Will cont iv vanc, unasyn, and levaquin. Cont po vanc. Plan on 6 weeks of abx, stop date 07/28/25. Vascular: On board Podiatry will continue to follow the patient weekly while she is at the transitional care unit. Please reach out to Dr. Irene any questions or concerns. Thank you for letting me be involved in the patient care. 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 Rishi Vasquez, DO Status:AD M IN Location: [place] [address]-1 Subjective Subjective Ms. Fuller is a 75-year-old diabetic female seen at bedside today for evaluationof bilateral full-thickness wound. Her bilateral lower extremities are wrapped at this time. Her cousin was present. She has been working with therapy and states that she is having some discomfort with touch to the right heel only. She has been involved with wound care and dressing changes every other day. Shedenies any acute events overnight. Her C. difficile is improving. She does have some swelling in the right arm secondary to a blood clot but vascular surgery is on board and well aware. Overall she is doing well. She denies trauma. Denies constitutional symptoms. No other pedal complaints at this time. Objective Data Objective Data Vital Signs: Vital Signs Temp Pulse Resp BP Pulse Ox O2 Del Method 98.3 F 53 L 16 146/47 H 96 Room Air 06/23/25 09:40 06/23/25 09:46 06/23/25 09:40 06/23/25 09:46 06/23/25 09:40 06/23/25 09:40 Oxygen Delivery Method Room Air Weight: 79.197 kg Body Mass Index (BMI) 28.1 Intake & Output: Intake and Output for Last 24 Hours 06/21/25 06/22/25 06/23/25 23:59 23:59 23:59 Intake Total 1530 / 1530 1140 / 1140 1320 / 1320 Balance 1530 / 1530 1140 / 1140 1320 / 1320 Lab / Micro Data 06/23/25 05:50 06/23/25 05:50 Labs: Laboratory Results - last 24 hr 06/22/25 20:39: Vancomycin Trough 17.4 H 06/23/25 05:50: WBC 4.6, RBC 2.94 L, Hgb 8.5 L, Hct 26.6 L, MCV 90.5, MCH 28.9, MCHC 32.0, RDW Std Deviation 54.4 H, RDW Coeff of Jorgito 16.8 H, Plt Count 176, MPV11.4, Immature Gran % (Auto) 0.700, Neut % (Auto) 50.9, Lymph % (Auto) 24.8, Lea % (Auto) 12.7 H, Eos % (Auto) 9.4 H, Baso % (Auto) 1.5 H, Absolute Neuts (auto) 2.3, Absolute Lymphs (auto) 1.13, Nucleated RBC % 0, Sodium 144, Potassium 3.7, Chloride 112 H, Carbon Dioxide 23.0, Anion Gap 9, BUN 42 H, Creatinine 0.90, Estim Creat Clear Calc 59.57, Est GFR (MDRD) Non-Af 68, BUN/Creatinine Ratio 46.7 H, Glucose 78, Calcium 8.4 06/23/25 06:00: POC Glucose 70 L 06/23/25 16:43: POC Glucose 115 H Micro: Microbiology 06/16/25 20:50 Stool Stool Occult Blood (ERICA) - Final Occult Blood Positive 06/10/25 11:36 Blood Culture (Wb) - Anticubital Right Blood Culture - Final No growth in 5 days. 06/10/25 11:29 Blood Culture (Wb) - Anticubital Left Blood Culture - Final No growth in 5 days. 06/10/25 13:30 Wound Drainage - Aerobic & Anaerobic Swabs Gram Stain - Final 06/10/25 13:30 Wound Drainage - Aerobic & Anaerobic Swabs Wound Culture - Final Stenotrophomonas maltophilia Acinetobacter baumannii Meth. resistant Staph. aureus 06/10/25 13:30 Wound Drainage - Aerobic & Anaerobic Swabs Anaerobic Culture - Final No anaerobic bacteria isolated. 06/10/25 11:25 Urine Catheter - Catheter Urine Culture - Final Enterobacter asburiae 06/10/25 13:15 Stool C. difficile GDH Antigen & Toxins - Final Toxigenic C. difficile 06/10/25 13:15 Stool Clostridioides difficile (PCR) - Final 06/10/25 10:48 Mucosa - Nasopharyngeal Respiratory Panel (PCR) - Final 06/10/25 11:32 Nasal Secretion SARS-CoV-2 Antigen (Rapid) - Final 06/03/25 Unknown Stool Stool Occult Blood (ERICA) - Final Occult Blood Positive Physical Exam Narrative Neurovascular status is unchanged. Nonpitting edema appreciated distal and proximal aspects of the bilateral lower extremity dressings. No pain on palpation over the dressing to the left anterior medial ankle wound. Mild pain on palpation to the lateral full-thickness wound of the right heel. No pain with calf compression bilateral. Const oriented x3 and no apparent distress Assessment & Plan Assessment/Plan (1) 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 foot with fat layer exposed: PLAN: Patient was examined and evaluated. All findings were discussed with the patient. All questions were answered to the patient satisfaction. Patient will continue to get dressing changes by wound care nurse consisting of Dakin's soaked gauze, dry sterile dressing and compression wrap to the bilateralextremity. Please change daily. Weightbearing status: Patient can be weightbearing as tolerated with assistance as well as medical administrative assistant with a walker using surgical shoes. WBC: 4.6 Glu:115 Medicine: On board, medical management Infectious disease: On boards. cont iv vanc, unasyn, and levaquin. Cont po vanc. Plan on 6 weeks of abx, stop date 07/28/25. Podiatry will continue to follow patient while she is in house. Please continuedaily dressing changes with Dakin soaked gauze, dry sterile dressing and bilateral compression wraps. Will plan for bedside debridement Sunday Please reach out to Dr. Irene with any question or concerns. Thank you for letting me be involved in the patient care. (2) Non-pressure chronic ulcer of other part of right foot with fat layer exposed: (3) Other specified peripheral vascular diseases: (4) Charcot joint of foot: QUALIFIERS: Laterality: unspecified laterality Qualified Code(s):M14.679 - Charcot's joint, unspecified ankle and foot 06/23/251802 <Electronically signed by Patel Irene DPM> Cosigner Signature (if applicable): CC: ~ Signed [facility] Work Phone: [phone]) 944-845408-05-2025 Consult note Author Evelin Rosado [facility] Note Date/Time June 23, 2025 10: 44am [facility] Medical Records Department [address] [place] [address] Pharmacokinetic/Renal -Consult 06/20/25 0852 MR#: [id number] Acct: [id number] Name: GELY FULLER Melinda Rep #:[id number] : 1950 75 From: Evelin Rosado PCP: Dr. Rishi Vasquez, DO Status:AD M IN Y Location: [place] [address] Consult Antibiotic Management Pharmacy has been consulted to manage selected antibiotic: Vancomycin Type of Intervention Type of Consult: Follow-up Suspected Infection Suspected Infection: Osteomyelitis Labs Labs: Sodium 141 mmol/L (133-145) 06/16/25 05:28 Potassium 3.9 mmol/L (3.3-5.1) 06/16/25 05:28 Chloride 113 mmol/L (98-108) H 06/16/25 05:28 Carbon Dioxide 19.0 mmol/L (21.0-32.0) L 06/16/25 05:28 Anion Gap 9 (5-15) 06/16/25 05:28 BUN 47 mg/dL (4-19) H 06/16/25 05:28 Creatinine 0.90 mg/dL (0.70-1.20) 06/20/25 07:03 Est GFR (MDRD) Non-Af 67 (>60) 06/20/25 07:03 BUN/Creatinine Ratio 43.4 RATIO (10-20) H 06/16/25 05:28 Glucose 167 mg/dL (70-99) H 06/16/25 05:28 Vancomycin Trough 20.2 ug/mL (5.0-15.0) H 06/20/25 07:03 Random Vancomycin 17.9 ug/mL (0.0-15.0) H 06/18/25 17:30 Microbiology Microbiology: Microbiology 06/16/25 20:50 Stool Stool Occult Blood (ERICA) - Final Occult Blood Positive 06/10/25 11:36 Blood Culture (Wb) - Anticubital Right Blood Culture - Final No growth in 5 days. 06/10/25 11:29 Blood Culture (Wb) - Anticubital Left Blood Culture - Final No growth in 5 days. 06/10/25 13:30 Wound Drainage - Aerobic & Anaerobic Swabs Gram Stain - Final 06/10/25 13:30 Wound Drainage - Aerobic & Anaerobic Swabs Wound Culture - Final Stenotrophomonas maltophilia Acinetobacter baumannii Meth. resistant Staph. aureus 06/10/25 13:30 Wound Drainage - Aerobic & Anaerobic Swabs Anaerobic Culture - Final No anaerobic bacteria isolated. 06/10/25 11:25 Urine Catheter - Catheter Urine Culture - Final Enterobacter asburiae 06/10/25 13:15 Stool C. difficile GDH Antigen & Toxins - Final Toxigenic C. difficile 06/10/25 13:15 Stool Clostridioides difficile (PCR) - Final 06/10/25 10:48 Mucosa - Nasopharyngeal Respiratory Panel (PCR) - Final 06/10/25 11:32 Nasal Secretion SARS-CoV-2 Antigen (Rapid) - Final 06/03/25 Unknown Stool Stool Occult Blood (ERICA) - Final Occult Blood Positive Pharmacy Plan for Drug Dosing Pharmacy Plan for Drug Dosing: VANCOMYCIN LEVEL RECEIVED Current Vancomycin Dose: 500MG Q12 Number of Doses Received: MANY Vancomycin Level: 20.2 mg/dL Hours Since Last Dose: 11.5 Renal Function: SCr 0.9 mg/dL, CrCl 60 mL/min Renal Function Trend: improved Vancomycin Plan/Comments: 11.5 hour trough is slightly supratherapeutic at 20.2 mg/dL (goal 15-20). Will hold dosing for now and get a random level in 12 hours. Pending Level: 06/20/25 @ 1900 - random Pharmacy Service will continue to monitor and adjust dosing as required. 06/20/25 0853 <Electronically signed by Evelin Rosado> Date _ Evelin Rosado 06/23/25 1044 <Electronically signed by Kwaku galan MD> Dhara Signature (if applicable): Date Kwaku Mendoza MD CC: ~ Signed [facility] Work Phone: [phone] Consult note Author Russell Rodriguez [facility] Note Date/Time June 22, 2025 10: 18pm [facility] Medical Records Department [address] [facility] [facility] [place] [address] Pharmacokinetic/Renal -Consult 06/22/256 MR#: [id number] Acct: [id number] Name: GELY FULLER Rep #:[id number] : 1950 75 From: Russell Rdoriguez PCP: Dr. Rishi Vasquez, DO Status:AD M IN Location: [place] [address] Consult Antibiotic Management Pharmacy has been consulted to manage selected antibiotic: Vancomycin Type of Intervention Type of Consult: Follow-up Suspected Infection Suspected Infection: Osteomyelitis Labs Labs: Sodium 141 mmol/L (133-145) 06/16/25 05:28 Potassium 3.9 mmol/L (3.3-5.1) 06/16/25 05:28 Chloride 113 mmol/L (98-108) H 06/16/25 05:28 Carbon Dioxide 19.0 mmol/L (21.0-32.0) L 06/16/25 05:28 Anion Gap 9 (5-15) 06/16/25 05:28 BUN 47 mg/dL (4-19) H 06/16/25 05:28 Creatinine 0.90 mg/dL (0.70-1.20) 06/20/25 07:03 Est GFR (MDRD) Non-Af 67 (>60) 06/20/25 07:03 BUN/Creatinine Ratio 43.4 RATIO (10-20) H 06/16/25 05:28 Glucose 167 mg/dL (70-99) H 06/16/25 05:28 Vancomycin Trough 17.4 ug/mL (5.0-15.0) H 06/22/25 20:39 Random Vancomycin 16.7 ug/mL (0.0-15.0) H 06/20/25 19:20 Microbiology Microbiology: Microbiology 06/16/25 20:50 Stool Stool Occult Blood (ERICA) - Final Occult Blood Positive 06/10/25 11:36 Blood Culture (Wb) - Anticubital Right Blood Culture - Final No growth in 5 days. 06/10/25 11:29 Blood Culture (Wb) - Anticubital Left Blood Culture - Final No growth in 5 days. 06/10/25 13:30 Wound Drainage - Aerobic & Anaerobic Swabs Gram Stain - Final 06/10/25 13:30 Wound Drainage - Aerobic & Anaerobic Swabs Wound Culture - Final Stenotrophomonas maltophilia Acinetobacter baumannii Meth. resistant Staph. aureus 06/10/25 13:30 Wound Drainage - Aerobic & Anaerobic Swabs Anaerobic Culture - Final No anaerobic bacteria isolated. 06/10/25 11:25 Urine Catheter - Catheter Urine Culture - Final Enterobacter asburiae 06/10/25 13:15 Stool C. difficile GDH Antigen & Toxins - Final Toxigenic C. difficile 06/10/25 13:15 Stool Clostridioides difficile (PCR) - Final 06/10/25 10:48 Mucosa - Nasopharyngeal Respiratory Panel (PCR) - Final 06/10/25 11:32 Nasal Secretion SARS-CoV-2 Antigen (Rapid) - Final 06/03/25 Unknown Stool Stool Occult Blood (ERICA) - Final Occult Blood Positive Dosing Weight Weight used for dosin.5 kg Estimated Creatinine Clearance Estimated Creatinine Clearance: 60 Goal Trough Goal Trough: 15-20 mcg/mL Pharmacy Plan for Drug Dosing Pharmacy Plan for Drug Dosing: Vancomycin trough level of 17.4, drawn 23.2hrs post-dose, was within the target range of 15-20. Will continue dosing at 1000mg q24h and will draw another troughlevel in two days. Pharmacy Service will continue to monitor and adjust dosing as required. Follow-Up Labs Follow-Up Labs: Trough: Vancomycin Date/Time Labs Ordered Labs to be done on [date and time ordered]: 06/24/25 @2100 06/22/25 7803 <Electronically signed by Russell shane> Date _ Russell W Rodriguez Cosigner Signature (if applicable): Date CC: ~ Signed [facility] Work Phone: [phone]) 204-210508-04-2025 Progress note Author Kwaku Mednoza [facility] Note Date/Time June 22, 2025 11: 30am [facility] Medical Records Department [address] [place] [address] Progress Note - Infect Disease 06/22/25 1128 MR#: [id number] Acct: [id number] Name: GELY FULLER Rep #:[id number] : 1950 75 From: Kwaku díaz MD PCP: Dr. Rishi Vasquez, DO Status:AD M IN Location: [place] [address] Physical Exam Narrative Feeling better, pain in feet improved, no fever, no n/v/d. Const alert and no apparent distress General Appearance: cooperative Resp normal air movement and clear to auscultation bilaterally Cardio regular rate and regular rhythm GI soft to palpation, non-tender and non-distended Skin Skin Narrative: feet wrapped ID ID: Route of nutrition/ use of supplements: [] Nutritional Intake: [] IV Site: [] Gonzalez Catheter: [] Assessment & Plan Assessment/Plan (1) Type 2 diabetes mellitus with foot ulcer: PLAN: Prior wound cx with MRSA, Acinetobacter, prevotella, and anaerobes. Developed fever, worsened ankle wound, cxs sent. Now cdiff (+). Started po vanc. Wound cx with MRSA, AcB, steno. Will cont iv vanc, unasyn, and levaquin. Cont po vanc. Plan on 6 weeks of abx, stop date 07/28/25. Will follow (2) C. difficile diarrhea: 06/22/25 1130 <Electronically signed by Kwaku Mendoza MD> Cosigner Signature (if applicable): CC: ~ Signed [facility] Work Phone: 1([phone]) 323-531208-04-2025 Consult note Author Abena Fiore [facility] Note Date/Time June 22, 2025 9:2 5am [facility] Medical Records Department [address] [place] [address] Consultation - Surgical 06/19/25 1509 MR#: [id number] Acct: [id number] Name: GELY FULLER Rep #:[id number] : 1950 75 From: Abena VYAS PCP: Dr. Rishi Vasquez, DO Status:AD M IN [facility] Assessment & Plan Assessment/Plan (1) Deep vein thrombosis of right upper extremity: (2) PAOD (peripheral arterial occlusive disease): (3) Anemia: (4) Chronic osteomyelitis of left foot: PLAN: Plan For management of her RUE DVT, options for management would be to initiate full anticoagulation with therapeutic lovenox dosing (for her, 80mg SC Q12 hours) andclose monitoring of her Hgb with daily H&H initially given recent GI bleed (withlesions treated with cautery and stable Hgb since then) or prophylactic lovenox dosing and removing PICC line and replacing in the LUE. I discussed her case with Dr. Solomon and also discussed both options with patient including risks and benefits with each. Gely indicated she really did not want to have the PICC line moved if possible and comfortable to try the therapeutic anticoagulation with close monitoring. In discussion with Dr. Solomon, his preference was also to trial therapeutic dosing given difficulty of obtaining this initial PICC line and the understanding that she requires IV antibiotic therapy for potentially anadditional 6 weeks. Orders placed for lovenox and H&H to monitor. Regarding her L groin incision site, OK to continue with current wound care withsteri-strips followed by foam border dressings, change foam border dressings daily. Monitor closely for any new/worsening drainage, redness, swelling, foul odor. HPI Consult Data Date of Consult: 06/19/25 HPI Narrative HPI Narrative: GELY FULLER, is a 75 F who is currently in the TCU for recovery from left femoral endarterectomy, left fem-peroneal bypass with reversed GSV cadaver, and left sartorius flap 05/26/25 performed secondary to severe PAD with nonhealing lower extremity diabetic ulcerations. She is followed by Dr. Irene for managementof her bilateral foot and ankle wounds. She is followed by ID Dr. Mendoza for her L foot osteomyelitis and C. Dif; she is currently being treated with IV antibiotics via RUE PICC line and there is not a clear planned stop date at thistime, potentially will need this for another 4-6 weeks. She reports she has had some swelling and discomfort in her RUE over the last week. She had a venous doppler 06/12 which was negative for DVT but had a repeat doppler today 06/19/25 which demonstrated R subclavian DVT and we are consulted regarding management. Unfortunately, she also has had recent GI bleed with acute on chronic anemia; she had upper endoscopy with cautery of erosive esophagitis with bleeding, bleeding duodenal ulcer, and [address] Yanez 06/12/25 after which her Hgb stabilized around 7.5. She did receive a PRBC transfusion 06/17/25 and her Hgb today 06/19/25 was 9.8. Additionally, she tells me today that she had some bleeding from her L groin incision site a few days ago; this was a brief episode. It appears steri-strips were placed and foam-border dressing has been applied. She reports she has not noticed any further drainage from this area. 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 Other specified peripheral vascular diseases Chronic painful diabetic polyneuropathy Anemia MRSA (methicillin resistant staph aureus) culture positive Diabetes Back pain Vertigo History of pain when walking Hypertension Arthritis Wears dentures Post-menopausal Low iron High cholesterol Easy bruising Neuropathy Dietary restriction Former smoker Cardiology follow-up encounter History of torn meniscus of left knee Carotid artery stenosis Essential hypertension Skin lesion Hammer toe of left foot Osteomyelitis Chronic kidney disease, stage 3 Atherosclerosis of coronary artery of [place] heart without angina pectoris Hyperlipidemia Peripheral vascular [...] 81 mg PO QHS blood clots 01/13/14 05/31/25 20:15 History release multivitamin with folic acid 400 1 tab PO DAILY Supple ment 01/13/14 06/01/25 09:00 History mcg tablet omega-3 fatty acids-fish oil 340 1 ea PO DAILY supplem ent 06/29/16 08/27/16 History mg-1,000 mg capsule ferrous sulfate 325 mg (65 mg 325 mg PO DAILY SUPPLEME NT 08/15/18 06/10/25 History iron) tablet ascorbic acid (vitamin C) 500 mg 1,000 mg PO LUNCH Sup plement 11/25/20 06/01/25 12:50 History tablet calcium carbonate (Calcium 600) 600 mg PO DAILY supple ment 12/29/21 06/01/25 09:00 History clopidogrel 75 mg tablet 75 mg PO DAILY Blood clots # 90 tabs 10/23/24 06/01/25 09:00 Rx Lactobacillus acidophilus 600 mg PO QDAY gi 03/07/25 0 06/01/25 09:00 History (Acidophilus capsule) pregabalin 100 mg capsule 100 mg PO TID nerve pain 06/01/25 12:50 History simvastatin 20 mg tablet 20 mg PO QHS cholesterol #30 tabs 03/23/25 05/31/25 20:15 Rx nystatin 100,000 unit/gram topical 1 applic topical BI D PRN rash 05/07/25 Unknown History powder (Nyamyc) acetaminophen 650 mg 650 mg PO Q12H PRN pain 04/20 Unknown History tablet,extended release amlodipine 5 mg tablet 5 mg PO DAILY HTN #90 tabs 0 05/12/25 06/01/25 09:00 Rx metoprolol succinate 25 mg 12.5 mg (1/2 x 25 mg) PO DA NHI 05/12/25 06/01/25 09:00 Rx tablet,extended release 24 hr HEART RATE #45 tabs glimepiride 2 mg tablet 2 mg PO BID Diabetes 5 Unknown History menthol 0.44 %-zinc oxide 20.6 % 1 applic topical BID Skin 05/28/25 Unknown Rx topical ointment (Calmoseptine) Irritation #0 grams oxycodone 5 mg tablet 5 mg PO Q4H PRN PRN Pain Sco re 05/28/25 05/30/25 Rx 4-10 #0 tabs Allergy/AdvReac Type Severity Reaction Status Date / Time Sulfa (Sulfonamide Allergy Unknown Verified 06/12/25 09:37 Antibiotics) Family History Father CAD (coronary artery [...] does not use caffeine: No Physical Exam Const alert, oriented x3 and no apparent distress HEENT normocephalic, head/scalp atraumatic and external nose normal Eyes General Eye: normal appearance of both eyes Neck General: normal visual inspection Resp normal respiratory effort Effort and Inspection: able to speak in complete sentences Extremity Extremity Narrative: RUE with 1+ edema L groin incision site with superficial dehiscence proximally; steri-strips intact and keeping skin edges well apposed, minimal serosanguineous drainage on the overlying mepilex dressing. No associated erythema, focal edema, foul odor, purulent drainage. Neuro Speech: speech normal Psych mental status grossly normal Appearance: grossly normal Lab / Micro Data 06/19/25 08:20 06/16/25 05:28 Labs: Laboratory Results - last 24 hr 06/18/25 16:54: POC Glucose 164 H 06/18/25 17:30: Random Vancomycin 17.9 H 06/19/25 06:33: POC Glucose 135 H 06/19/25 08:20: Hgb 9.8 L, Hct 30.8 L Charges/Coding Procedures Integumentary 111xxx-113xx: 23197 Global Visit 06/19/25 1704 <Electronically signed by Abena VYAS> Cosigner Signature (if applicable): 06/22/25 0925 <Electronically signed by Russell Clement MD> CC: Dr. Rishi Vasquez, DO~ Signed [facility] Work Phone: 1(236) 111-423208-02-2025 Consult note Author Russell Rodriguez [facility] Note Date/Time June 20, 2025 9:2 0pm [facility] Medical Records Department [address] [place] [address] Pharmacokinetic/Renal -Consult 06/20/252117 MR#: [id number] Acct: [id number] Name: GELY FULLER Rep #:[id number] : 1950 75 From: Russell Rodriguez PCP: Dr. Rishi Vasquez, Status:AD M IN Y Location: [place] [address] Consult Antibiotic Management Pharmacy has been consulted to manage selected antibiotic: Vancomycin Type of Intervention Type of Consult: Follow-up Suspected Infection Suspected Infection: Osteomyelitis Labs Labs: Sodium 141 mmol/L (133-145) 06/16/25 05:28 Potassium 3.9 mmol/L (3.3-5.1) 06/16/25 05:28 Chloride 113 mmol/L (98-108) H 06/16/25 05:28 Carbon Dioxide 19.0 mmol/L (21.0-32.0) L 06/16/25 05:28 Anion Gap 9 (5-15) 06/16/25 05:28 BUN 47 mg/dL (4-19) H 06/16/25 05:28 Creatinine 0.90 mg/dL (0.70-1.20) 06/20/25 07:03 Est GFR (MDRD) Non-Af 67 (>60) 06/20/25 07:03 BUN/Creatinine Ratio 43.4 RATIO (10-20) H 06/16/25 05:28 Glucose 167 mg/dL (70-99) H 06/16/25 05:28 Vancomycin Trough 20.2 ug/mL (5.0-15.0) H 06/20/25 07:03 Random Vancomycin 16.7 ug/mL (0.0-15.0) H 06/20/25 19:20 Microbiology Microbiology: Microbiology 06/16/25 20:50 Stool Stool Occult Blood (ERICA) - Final Occult Blood Positive 06/10/25 11:36 Blood Culture (Wb) - Anticubital Right Blood Culture - Final No growth in 5 days. 06/10/25 11:29 Blood Culture (Wb) - Anticubital Left Blood Culture - Final No growth in 5 days. 06/10/25 13:30 Wound Drainage - Aerobic & Anaerobic Swabs Gram Stain - Final 06/10/25 13:30 Wound Drainage - Aerobic & Anaerobic Swabs Wound Culture - Final Stenotrophomonas maltophilia Acinetobacter baumannii Meth. resistant Staph. aureus 06/10/25 13:30 Wound Drainage - Aerobic & Anaerobic Swabs Anaerobic Culture - Final No anaerobic bacteria isolated. 06/10/25 11:25 Urine Catheter - Catheter Urine Culture - Final Enterobacter asburiae 06/10/25 13:15 Stool C. difficile GDH Antigen & Toxins - Final Toxigenic C. difficile 06/10/25 13:15 Stool Clostridioides difficile (PCR) - Final 06/10/25 10:48 Mucosa - Nasopharyngeal Respiratory Panel (PCR) - Final 06/10/25 11:32 Nasal Secretion SARS-CoV-2 Antigen (Rapid) - Final 06/03/25 Unknown Stool Stool Occult Blood (ERICA) - Final Occult Blood Positive Dosing Weight Weight used for dosin.5 kg Estimated Creatinine Clearance Estimated Creatinine Clearance: 60 Goal Trough Goal Trough: 15-20 mcg/mL Pharmacy Plan for Drug Dosing Pharmacy Plan for Drug Dosing: Random vancomycin level was 16.7. This was drawn 24hrs since last dose was hung.Per dosing calculator, a new dose of 1000mg q24hrs should give and estimated trough of 17.4. Will initiate now and draw a trough level prior to third dose ofthe new regimen. Pharmacy Service will continue to monitor and adjust dosing as required. Follow-Up Labs Follow-Up Labs: Trough: Vancomycin Date/Time Labs Ordered Labs to be done on [date and time ordered]: 06/22/25 @2100 06/20/252119 <Electronically signed by Russell shane> Date _ Russell Jules Signature (if applicable): Date CC: ~ Signed [facility] Work Phone: 1(391) 292-732007-31-2025 Consult note Author Sepideh Klein [facility] Note Date/Time June 18, 2025 6:56 pm [facility] Medical Records Department [address] [place] [address] Pharmacokinetic/Renal -Consult 06/18/25 9437 MR#: [id number] Acct: [id number] Name: GELY FULLER Rep #:[id number] : 1950 75 From: Sepideh Burris PCP: Dr. Rishi Vasquez, DO Status:AD M IN Location: [place] [address] Consult Antibiotic Management Pharmacy has been consulted to manage selected antibiotic: Vancomycin Type of Intervention Type of Consult: Follow-up Suspected Infection Suspected Infection: Osteomyelitis Prior Doses of Antibiotics Prior Doses of Antibiotics Received/Current Regimen: Dose was held and a random level was drawn today Labs Labs: Sodium 141 mmol/L (133-145) 06/16/25 05:28 Potassium 3.9 mmol/L (3.3-5.1) 06/16/25 05:28 Chloride 113 mmol/L (98-108) H 06/16/25 05:28 Carbon Dioxide 19.0 mmol/L (21.0-32.0) L 06/16/25 05:28 Anion Gap 9 (5-15) 06/16/25 05:28 BUN 47 mg/dL (4-19) H 06/16/25 05:28 Creatinine 1.09 mg/dL (0.70-1.20) 06/16/25 05:28 Est GFR (MDRD) Non-Af 54 (>60) L 06/16/25 05:28 BUN/Creatinine Ratio 43.4 RATIO (10-20) H 06/16/25 05:28 Glucose 167 mg/dL (70-99) H 06/16/25 05:28 Vancomycin Trough 24.2 ug/mL (5.0-15.0) H 06/17/25 19:24 Random Vancomycin 17.9 ug/mL (0.0-15.0) H 06/18/25 17:30 Microbiology Microbiology: Microbiology 06/16/25 20:50 Stool Stool Occult Blood (ERICA) - Final Occult Blood Positive 06/10/25 11:36 Blood Culture (Wb) - Anticubital Right Blood Culture - Final No growth in 5 days. 06/10/25 11:29 Blood Culture (Wb) - Anticubital Left Blood Culture - Final No growth in 5 days. 06/10/25 13:30 Wound Drainage - Aerobic & Anaerobic Swabs Gram Stain - Final 06/10/25 13:30 Wound Drainage - Aerobic & Anaerobic Swabs Wound Culture - Final Stenotrophomonas maltophilia Acinetobacter baumannii Meth. resistant Staph. aureus 06/10/25 13:30 Wound Drainage - Aerobic & Anaerobic Swabs Anaerobic Culture - Final No anaerobic bacteria isolated. 06/10/25 11:25 Urine Catheter - Catheter Urine Culture - Final Enterobacter asburiae 06/10/25 13:15 Stool C. difficile GDH Antigen & Toxins - Final Toxigenic C. difficile 06/10/25 13:15 Stool Clostridioides difficile (PCR) - Final 06/10/25 10:48 Mucosa - Nasopharyngeal Respiratory Panel (PCR) - Final 06/10/25 11:32 Nasal Secretion SARS-CoV-2 Antigen (Rapid) - Final 06/03/25 Unknown Stool Stool Occult Blood (ERICA) - Final Occult Blood Positive Dosing Weight Weight used for dosin kg Estimated Creatinine Clearance Estimated Creatinine Clearance: 47 Goal Trough Goal Trough: 15-20 mcg/mL Pharmacy Plan for Drug Dosing Pharmacy Plan for Drug Dosing: Start Vancomycin 500mg every 12 hours. Pharmacy Service will continue to monitor and adjust dosing as required. Follow-Up Labs Follow-Up Labs: Trough: Vancomycin Date/Time Labs Ordered Labs to be done on [date and time ordered]: 06/20/25 @ 0730 06/18/25 1856 <Electronically signed by Sepideh Klein> Date _ Sepideh Jules Signature (if applicable): Date CC: ~ Signed [facility] Work Phone: 1(336) 585-823307-31-2025 Consult note Author Russell Rodriguez [facility] Note Date/Time June 18, 2025 6:28 am [facility] Medical Records Department [address] [place] [address] Pharmacokinetic/Renal -Consult 06/18/25625 MR#: [id number] Acct: [id number] Name: GELY FULLER Melinda Rep #:[id number] : 1950 75 From: Russell Rodriguez PCP: Dr. Rishi Vasquez, DO Status:AD M IN Location: [place] [address] Consult Antibiotic Management Pharmacy has been consulted to manage selected antibiotic: Vancomycin Type of Intervention Type of Consult: Follow-up Suspected Infection Suspected Infection: Osteomyelitis Labs Labs: Sodium 141 mmol/L (133-145) 06/16/25 05:28 Potassium 3.9 mmol/L (3.3-5.1) 06/16/25 05:28 Chloride 113 mmol/L (98-108) H 06/16/25 05:28 Carbon Dioxide 19.0 mmol/L (21.0-32.0) L 06/16/25 05:28 Anion Gap 9 (5-15) 06/16/25 05:28 BUN 47 mg/dL (4-19) H 06/16/25 05:28 Creatinine 1.09 mg/dL (0.70-1.20) 06/16/25 05:28 Est GFR (MDRD) Non-Af 54 (>60) L 06/16/25 05:28 BUN/Creatinine Ratio 43.4 RATIO (10-20) H 06/16/25 05:28 Glucose 167 mg/dL (70-99) H 06/16/25 05:28 Vancomycin Trough 24.2 ug/mL (5.0-15.0) H 06/17/25 19:24 Random Vancomycin 21.1 ug/mL (0.0-15.0) H 06/18/25 05:39 Microbiology Microbiology: Microbiology 06/16/25 20:50 Stool Stool Occult Blood (ERICA) - Final Occult Blood Positive 06/10/25 11:36 Blood Culture (Wb) - Anticubital Right Blood Culture - Final No growth in 5 days. 06/10/25 11:29 Blood Culture (Wb) - Anticubital Left Blood Culture - Final No growth in 5 days. 06/10/25 13:30 Wound Drainage - Aerobic & Anaerobic Swabs Gram Stain - Final 06/10/25 13:30 Wound Drainage - Aerobic & Anaerobic Swabs Wound Culture - Final Stenotrophomonas maltophilia Acinetobacter baumannii Meth. resistant Staph. aureus 06/10/25 13:30 Wound Drainage - Aerobic & Anaerobic Swabs Anaerobic Culture - Final No anaerobic bacteria isolated. 06/10/25 11:25 Urine Catheter - Catheter Urine Culture - Final Enterobacter asburiae 06/10/25 13:15 Stool C. difficile GDH Antigen & Toxins - Final Toxigenic C. difficile 06/10/25 13:15 Stool Clostridioides difficile (PCR) - Final 06/10/25 10:48 Mucosa - Nasopharyngeal Respiratory Panel (PCR) - Final 06/10/25 11:32 Nasal Secretion SARS-CoV-2 Antigen (Rapid) - Final 06/03/25 Unknown Stool Stool Occult Blood (ERICA) - Final Occult Blood Positive Dosing Weight Weight used for dosin.5 kg Estimated Creatinine Clearance Estimated Creatinine Clearance: 47 Goal Trough Goal Trough: 15-20 mcg/mL Pharmacy Plan for Drug Dosing Pharmacy Plan for Drug Dosing: Random vancomycin level drawn 21hrs since last vanco dose was still high at 21.1. Will continue to suspend dosing, and will draw another random level in 12 hours to determine further orders. Pharmacy Service will continue to monitor and adjust dosing as required. Follow-Up Labs Follow-Up Labs: Trough: Vancomycin (random) Date/Time Labs Ordered Labs to be done on [date and time ordered]: 06/18/25 @1730 (random) 06/18/25627 <Electronically signed by Russell shane> Date _ Russell Jules Signature (if applicable): Date CC: ~ Signed [facility] Work Phone: [phone]) [phone] Consult note Author Adelia Harvey [facility] Note Date/Time June 17, 2025 8:40 pm [facility] Medical Records Department [address] [place] [address] Pharmacokinetic/Renal -Consult 06/17/252039 MR#: [id number] Acct: [id number] Name: GELY FULLER Melinda Rep #:[id number] : 1950 75 From: Adelia Harvey PCP: Dr. Rishi Vasquez, DO Status:AD M IN Location: [place] [address] Consult Antibiotic Management Pharmacy has been consulted to manage selected antibiotic: Vancomycin Type of Intervention Type of Consult: Follow-up Labs Labs: Sodium 141 mmol/L (133-145) 06/16/25 05:28 Potassium 3.9 mmol/L (3.3-5.1) 06/16/25 05:28 Chloride 113 mmol/L (98-108) H 06/16/25 05:28 Carbon Dioxide 19.0 mmol/L (21.0-32.0) L 06/16/25 05:28 Anion Gap 9 (5-15) 06/16/25 05:28 BUN 47 mg/dL (4-19) H 06/16/25 05:28 Creatinine 1.09 mg/dL (0.70-1.20) 06/16/25 05:28 Est GFR (MDRD) Non-Af 54 (>60) L 06/16/25 05:28 BUN/Creatinine Ratio 43.4 RATIO (10-20) H 06/16/25 05:28 Glucose 167 mg/dL (70-99) H 06/16/25 05:28 Vancomycin Trough 24.2 ug/mL (5.0-15.0) H 06/17/25 19:24 Random Vancomycin 20.1 ug/mL (0.0-15.0) H 06/16/25 05:28 Microbiology Microbiology: Microbiology 06/16/25 20:50 Stool Stool Occult Blood (ERICA) - Final Occult Blood Positive 06/10/25 11:36 Blood Culture (Wb) - Anticubital Right Blood Culture - Final No growth in 5 days. 06/10/25 11:29 Blood Culture (Wb) - Anticubital Left Blood Culture - Final No growth in 5 days. 06/10/25 13:30 Wound Drainage - Aerobic & Anaerobic Swabs Gram Stain - Final 06/10/25 13:30 Wound Drainage - Aerobic & Anaerobic Swabs Wound Culture - Final Stenotrophomonas maltophilia Acinetobacter baumannii Meth. resistant Staph. aureus 06/10/25 13:30 Wound Drainage - Aerobic & Anaerobic Swabs Anaerobic Culture - Final No anaerobic bacteria isolated. 06/10/25 11:25 Urine Catheter - Catheter Urine Culture - Final Enterobacter asburiae 06/10/25 13:15 Stool C. difficile GDH Antigen & Toxins - Final Toxigenic C. difficile 06/10/25 13:15 Stool Clostridioides difficile (PCR) - Final 06/10/25 10:48 Mucosa - Nasopharyngeal Respiratory Panel (PCR) - Final 06/10/25 11:32 Nasal Secretion SARS-CoV-2 Antigen (Rapid) - Final 06/03/25 Unknown Stool Stool Occult Blood (ERICA) - Final Occult Blood Positive Goal Trough Goal Trough: 15-20 mcg/mL Pharmacy Plan for Drug Dosing Pharmacy Plan for Drug Dosing: VANCOMYCIN LEVEL RECEIVED Current Vancomycin Dose: 750mg IV Q12hr Number of Doses Received: 3 (of current regimen) Vancomycin Level: 24.2 Hours Since Last Dose: ~11.5hr Renal Function: 1.09 Renal Function Trend: stable Vancomycin Plan/Comments: patient had a trough drawn which resulted in a value of 24.2 (goal 15-20). patient's trough is above goal. Will hold subsequent dosesof vancomycin and resume once trough is less than 20. Will recheck a trough tomorrow with AM labs. Pending Level: *RANDOM* 06/18/25 @0600 Pharmacy Service will continue to monitor and adjust dosing as required. 06/17/252039 <Electronically signed by Adelia Harvey > Date _ Adelia Regula Cosigner Signature (if applicable): Date CC: ~ Signed [facility] Work Phone: [phone]) 903-440907-30-2025 Progress note Author Patel Irene [facility] Note Date/Time June 17, 2025 4:04 pm [facility] Medical Records Department [address] [place] [address] Progress Note - Surgery 06/17/25 0846 MR#: [id number] Acct: [id number] Name: GELY FULLER Rep #:[id number] : 1950 75 From: Patel Abraham PM PCP: Dr. Rishi Vasquez, DO Status:AD IN Location: [place] [address] Subjective Subjective Ms. Fuller is a 75-year-old diabetic female seen at bedside today for evaluationof bilateral full-thickness wound. Patient has been getting wound care dressingchanges by nursing staff. Clinical pictures show good granular fibrotic base wounds with no concern of infection. Patient is currently on PICC line antibiotics and is doing well. Patient admits to mild loose stool. No acute events overnight. She denies trauma. Denies constitutional symptoms. No otherpedal complaints at this time Objective Data Objective Data Vital Signs: Vital Signs Temp Pulse Resp BP Pulse Ox O2 Del Method 97.7 F L 51 L 16 141/53 H 94 Room Air 06/16/25 17:29 06/16/25 17:29 06/16/25 17:29 06/16/25 17:29 06/16/25 17:29 06/16/25 17:29 Oxygen Delivery Method Room Air Weight: 79.52 kg Body Mass Index (BMI) 28.3 Intake & Output: Intake and Output for Last 24 Hours 06/15/25 06/16/25 06/17/25 23:59 23:59 23:59 Intake Total 746 / 746 1864.25 / 1864.25 200 / 200 Balance 746 / 746 1864.25 / 1864.25 200 / 200 Lab / Micro Data 06/17/25 15:20 06/16/25 05:28 Labs: Laboratory Results - last 24 hr 06/16/25 09:20: Blood Type Cancelled, Antibody Screen Cancelled, Crossmatch See Detail 06/16/25 17:33: POC Glucose 213 H 06/17/25 06:05: POC Glucose 190 H Micro: Microbiology 06/16/25 20:50 Stool Stool Occult Blood (ERICA) - Final Occult Blood Positive 06/10/25 11:36 Blood Culture (Wb) - Anticubital Right Blood Culture - Final No growth in 5 days. 06/10/25 11:29 Blood Culture (Wb) - Anticubital Left Blood Culture - Final No growth in 5 days. 06/10/25 13:30 Wound Drainage - Aerobic & Anaerobic Swabs Gram Stain - Final 06/10/25 13:30 Wound Drainage - Aerobic & Anaerobic Swabs Wound Culture - Final Stenotrophomonas maltophilia Acinetobacter baumannii Meth. resistant Staph. aureus 06/10/25 13:30 Wound Drainage - Aerobic & Anaerobic Swabs Anaerobic Culture - Final No anaerobic bacteria isolated. 06/10/25 11:25 Urine Catheter - Catheter Urine Culture - Final Enterobacter asburiae 06/10/25 13:15 Stool C. difficile GDH Antigen & Toxins - Final Toxigenic C. difficile 06/10/25 13:15 Stool Clostridioides difficile (PCR) - Final 06/10/25 10:48 Mucosa - Nasopharyngeal Respiratory Panel (PCR) - Final 06/10/25 11:32 Nasal Secretion SARS-CoV-2 Antigen (Rapid) - Final 06/03/25 Unknown Stool Stool Occult Blood (ERICA) - Final Occult Blood Positive Physical Exam Narrative Vascular: DP and PT pulses are palpable to the right and left lower extremities. CFT is brisk. Erythema has improved to the left ankle and foot. Neurological: Light touch intact. Patient does respond to painful stimuli to the left lower extremity. Dermatological: Full-thickness wound to the right posterior heel stable with granular wound base no sign of infection. Multiple full-thickness wound appreciated to the left lower extremity. Exposed tendon appreciated to the anterior lateral full-thickness wound is improving with healthy granular tissue surrounding the tendon. All wounds to the left lower extremity are healthy withfibrogranular tissue. No malodor. Musculoskeletal: No pain to palpation to the full-thickness wound to the anterior lateral ankle. No pain to palp patient to remaining bilateral full-thickness wound. Assessment & Plan Assessment/Plan (1) Cellulitis of left ankle: PLAN: Patient was examined and evaluated. All findings were discussed with the patient. All questions were answered to the patient satisfaction. Ankle x-rays (06/10/2025): There is no suggested evidence of osteomyelitis or other acute abnormalities. Patient will continue to get dressing changes by wound care nurse consisting of Dakin's soaked gauze, dry sterile dressing and compression wrap to the bilateralextremity. Please change daily. Weightbearing status: Patient can be weightbearing as tolerated with assistance as well as medical administrative assistant with a walker using surgical shoes. Left anterior ankle full-thickness wound culture (06/10/2025): MRSA, AcB, steno. Stool Sample: C. Diff (+) Blood culture: (-)ve Urine culture: E asburiae WBC: 5.8 ESR (06/10/2025): 28 CRP (06/10/25): 242.0 Medicine: On board, medical management Infectious disease: On boards. C difficile positive, currently on p.o. Vanco, PICC line IV Vanco, Unasyn, Levaquin Podiatry will continue to follow patient while she is in house. Please continuedaily dressing changes with Dakin soaked gauze, dry sterile dressing and bilateral compression wraps. Will plan for bedside debridement with wound care nurse this Sunday. Please reach out to Dr. Irene with any question or concerns. Thank you for letting me be involved in the patient care. (2) Non-pressure chronic ulcer of left ankle with necrosis of muscle: (3) Acute painful diabetic polyneuropathy: (4) 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 foot with fat layer exposed: (5) Non-pressure chronic ulcer of other part of right foot with fat layer exposed: (6) Other specified peripheral vascular diseases: (7) Charcot joint of foot: 06/17/25 1604 <Electronically signed by Patel Irene DPM> Cosigner Signature (if applicable): CC: ~ Signed [facility] Work Phone: 1(327) 515-507507-30-2025 Telephone encounter Note* Telephone Encounter - Shandra Kaufman LPN - 06/17/2025 5:19 PM EDT A1C has been added but did not see a lipid panel [facility]07-30-2025 Miscellaneous Notes* Telephone Encounter - Shandra Kaufman LPN - 06/17/2025 5:19 PM EDT A1C has been added but did not see a lipid panel * Telephone Encounter - Rishi Vasquez DO - 06/15/2025 7:33 AM EDT Noted Labs reviewed Please update the A1c and lipids results in Rishi Vasquez DO * Telephone Encounter - Rachel Jacobs MA - 06/12/2025 1:25 PM EDT Scan on 06/12/2025 11:59 AM by Provider, External, PASergioC: Admit [facility] 06/12/25- Current A1C \T\ CMP for review Patient [facility] [facility] faxed current A1C & CMP results. Rachel Jacobs MA [facility] Progress note Author Kwaku Mendoza [facility] Note Date/Time June 16, 2025 10:0 7am [facility] Medical Records Department [address] [place] [address] Progress Note - Infect Disease 06/16/25 1006 MR#: [id number] Acct: [id number] Name: GELY FULLER Melinda Rep #:[id number] : 1950 75 From: Kwaku díaz MD PCP: Dr. Rishi Vasquez DO Status:AD M IN Location: [place] [address] Physical Exam Narrative Feeling ok, no fever, mild loose stool Const alert and no apparent distress General Appearance: cooperative Resp normal air movement and clear to auscultation bilaterally Cardio regular rate and regular rhythm GI soft to palpation, non-tender and non-distended Extremity General Extremity: edema Skin Skin Narrative: feet wrapped ID ID: Route of nutrition/ use of supplements: [] Nutritional Intake: [] IV Site: [] Gonzalez Catheter: [] Assessment & Plan Assessment/Plan (1) Type 2 diabetes mellitus with foot ulcer: PLAN: Prior wound cx with MRSA, Acinetobacter, prevotella, and anaerobes. Developed fever, worsened ankle wound, cxs sent. Now cdiff (+). Started po vanc. Wound cx with MRSA, AcB, steno. Will change to iv vanc, unasyn, and levaquin. Cont po vanc. Will follow (2) C. difficile diarrhea: 06/16/25 1007 <Electronically signed by Kwaku Mendoza MD> Cosigner Signature (if applicable): CC: ~ Signed [facility] Work Phone: 1(679) 782-983707-29-2025 Consult note Author Mitch Canada [facility] Note Date/Time June 16, 2025 9:12 am [facility] Medical Records Department [address] [place] [address] Pharmacokinetic/Renal -Consult 06/16/25 0628 MR#: [id number] Acct: [id number] Name: GELY FULLER Melinda Rep #:[id number] : 1950 75 From: Mitch Canada PCP: Dr. Rishi Vasquez, DO Status:AD M IN Y Location: [place] [address] Consult Antibiotic Management Pharmacy has been consulted to manage selected antibiotic: Vancomycin Type of Intervention Type of Consult: Follow-up Suspected Infection Suspected Infection: Osteomyelitis Prior Doses of Antibiotics Prior Doses of Antibiotics Received/Current Regimen: Vancomycin 1000 mg last given 06/14/25 @ 2215 Labs Labs: Sodium 141 mmol/L (133-145) 06/16/25 05:28 Potassium 3.9 mmol/L (3.3-5.1) 06/16/25 05:28 Chloride 113 mmol/L (98-108) H 06/16/25 05:28 Carbon Dioxide 19.0 mmol/L (21.0-32.0) L 06/16/25 05:28 Anion Gap 9 (5-15) 06/16/25 05:28 BUN 47 mg/dL (4-19) H 06/16/25 05:28 Creatinine 1.09 mg/dL (0.70-1.20) 06/16/25 05:28 Est GFR (MDRD) Non-Af 54 (>60) L 06/16/25 05:28 BUN/Creatinine Ratio 43.4 RATIO (10-20) H 06/16/25 05:28 Glucose 167 mg/dL (70-99) H 06/16/25 05:28 Vancomycin Trough 25.0 ug/mL (5.0-15.0) H 06/15/25 11:22 Random Vancomycin 20.1 ug/mL (0.0-15.0) H 06/16/25 05:28 Microbiology Microbiology: Microbiology 06/10/25 11:36 Blood Culture (Wb) - Anticubital Right Blood Culture - Final No growth in 5 days. 06/10/25 11:29 Blood Culture (Wb) - Anticubital Left Blood Culture - Final No growth in 5 days. 06/10/25 13:30 Wound Drainage - Aerobic & Anaerobic Swabs Gram Stain - Final 06/10/25 13:30 Wound Drainage - Aerobic & Anaerobic Swabs Wound Culture - Final Stenotrophomonas maltophilia Acinetobacter baumannii Meth. resistant Staph. aureus 06/10/25 13:30 Wound Drainage - Aerobic & Anaerobic Swabs Anaerobic Culture - Final No anaerobic bacteria isolated. 06/10/25 11:25 Urine Catheter - Catheter Urine Culture - Final Enterobacter asburiae 06/10/25 13:15 Stool C. difficile GDH Antigen & Toxins - Final Toxigenic C. difficile 06/10/25 13:15 Stool Clostridioides difficile (PCR) - Final 06/10/25 10:48 Mucosa - Nasopharyngeal Respiratory Panel (PCR) - Final 06/10/25 11:32 Nasal Secretion SARS-CoV-2 Antigen (Rapid) - Final 06/03/25 Unknown Stool Stool Occult Blood (ERICA) - Final Occult Blood Positive Dosing Weight Weight used for dosin kg Estimated Creatinine Clearance Estimated Creatinine Clearance: ~ 47 Goal Trough Goal Trough: 15-20 mcg/mL Pharmacy Plan for Drug Dosing Pharmacy Plan for Drug Dosing: Vancomycin random level = 20.1, resume dosing at 750 mg q12h Pharmacy Service will continue to monitor and adjust dosing as required. Follow-Up Labs Follow-Up Labs: Trough: Vancomycin Date/Time Labs Ordered Labs to be done on [date and time ordered]: 06/17/25 @ 1930 06/16/25 0629 <Electronically signed by Mitch díaz> Date _ Mitch Canada 06/16/25 0912 <Electronically signed by Kwaku galan MD> Cosigner Signature (if applicable): Date Kwaku Mendoza MD CC: ~ Signed [facility] Work Phone: 1(246) 861-543807-28-2025 Consult note Author Mitch Canada [facility] Note Date/Time June 15, 2025 1:21 pm [facility] Medical Records Department [address] [place] [address] Pharmacokinetic/Renal -Consult 06/13/25 2322 MR#: [id number] Acct: [id number] Name: JONNYGELY Rep #:[id number] : 1950 75 From: Mitch Canada PCP: Dr. Rishi Vasquez, DO Status:AD M IN Location: [place] [address] Consult Antibiotic Management Pharmacy has been consulted to manage selected antibiotic: Vancomycin Type of Intervention Type of Consult: Follow-up Suspected Infection Suspected Infection: Osteomyelitis Prior Doses of Antibiotics Prior Doses of Antibiotics Received/Current Regimen: Vancomycin 750 mg Q12H last dose given 06/13/25 @ 1031 Labs Labs: Sodium 137 mmol/L (133-145) 06/10/25 11:29 Potassium 3.7 mmol/L (3.3-5.1) 06/10/25 11:29 Chloride 104 mmol/L (98-108) 06/10/25 11:29 Carbon Dioxide 22.3 mmol/L (21.0-32.0) 06/10/25 11:29 Anion Gap 11 (5-15) 06/10/25 11:29 BUN 55 mg/dL (4-19) H 06/10/25 11:29 Creatinine 1.22 mg/dL (0.70-1.20) H 06/10/25 11:29 Est GFR (MDRD) Non-Af 47 (>60) L 06/10/25 11:29 BUN/Creatinine Ratio 45.0 RATIO (10-20) H 06/10/25 11:29 Glucose 218 mg/dL (70-99) H 06/10/25 11:29 Vancomycin Trough 13.3 ug/mL (5.0-15.0) 06/13/25 22:40 Microbiology Microbiology: Microbiology 06/10/25 13:30 Wound Drainage - Aerobic & Anaerobic Swabs Gram Stain - Final 06/10/25 13:30 Wound Drainage - Aerobic & Anaerobic Swabs Wound Culture - Preliminary Stenotrophomonas maltophilia Acinetobacter baumannii Meth. resistant Staph. aureus 06/10/25 13:30 Wound Drainage - Aerobic & Anaerobic Swabs Anaerobic Culture - Preliminary Checking for anaerobes, further studies to follow. 06/10/25 11:36 Blood Culture (Wb) - Anticubital Right Blood Culture - Preliminary No growth in 48 hours. 06/10/25 11:29 Blood Culture (Wb) - Anticubital Left Blood Culture - Preliminary No growth in 48 hours. 06/10/25 11:25 Urine Catheter - Catheter Urine Culture - Final Enterobacter asburiae 06/10/25 13:15 Stool C. difficile GDH Antigen & Toxins - Final Toxigenic C. difficile 06/10/25 13:15 Stool Clostridioides difficile (PCR) - Final 06/10/25 10:48 Mucosa - Nasopharyngeal Respiratory Panel (PCR) - Final 06/10/25 11:32 Nasal Secretion SARS-CoV-2 Antigen (Rapid) - Final 06/03/25 Unknown Stool Stool Occult Blood (ERICA) - Final Occult Blood Positive Dosing Weight Weight used for dosin kg Estimated Creatinine Clearance Estimated Creatinine Clearance: ~ 42 Goal Trough Goal Trough: 15-20 mcg/mL Pharmacy Plan for Drug Dosing Pharmacy Plan for Drug Dosing: Vancomycin trough = 13.3, increase to 1000 mg Q12H Pharmacy Service will continue to monitor and adjust dosing as required. Follow-Up Labs Follow-Up Labs: Trough: Vancomycin Date/Time Labs Ordered Labs to be done on [date and time ordered]: 06/15/25 @ 1100 06/13/25 2323 <Electronically signed by Mitch díaz> Date _ Mitch Canada 06/15/25 1321 <Electronically signed by Kwaku galan MD> Cosigner Signature (if applicable): Date Kwaku Mendoza MD CC: ~ Signed [facility] Work Phone: 1(950) 144-950507-28-2025 Consult note Author Evelin Rosado [facility] Note Date/Time June 15, 2025 1:21 pm [facility] Medical Records Department [address] [place] [address] Pharmacokinetic/Renal -Consult 06/15/25 1220 MR#: [id number] Acct: [id number] Name: GELY FULLER Rep #:[id number] : 1950 75 From: Evelin Rosado PCP: Dr. Rishi Vasquez, DO Status:AD M IN Location: [place] [address] Consult Antibiotic Management Pharmacy has been consulted to manage selected antibiotic: Vancomycin Type of Intervention Type of Consult: Follow-up Suspected Infection Suspected Infection: Osteomyelitis Labs Labs: Sodium 137 mmol/L (133-145) 06/10/25 11:29 Potassium 3.7 mmol/L (3.3-5.1) 06/10/25 11:29 Chloride 104 mmol/L (98-108) 06/10/25 11:29 Carbon Dioxide 22.3 mmol/L (21.0-32.0) 06/10/25 11:29 Anion Gap 11 (5-15) 06/10/25 11:29 BUN 55 mg/dL (4-19) H 06/10/25 11:29 Creatinine 1.22 mg/dL (0.70-1.20) H 06/10/25 11:29 Est GFR (MDRD) Non-Af 47 (>60) L 06/10/25 11:29 BUN/Creatinine Ratio 45.0 RATIO (10-20) H 06/10/25 11:29 Glucose 218 mg/dL (70-99) H 06/10/25 11:29 Vancomycin Trough 25.0 ug/mL (5.0-15.0) H 06/15/25 11:22 Microbiology Microbiology: Microbiology 06/10/25 11:36 Blood Culture (Wb) - Anticubital Right Blood Culture - Final No growth in 5 days. 06/10/25 11:29 Blood Culture (Wb) - Anticubital Left Blood Culture - Final No growth in 5 days. 06/10/25 13:30 Wound Drainage - Aerobic & Anaerobic Swabs Gram Stain - Final 06/10/25 13:30 Wound Drainage - Aerobic & Anaerobic Swabs Wound Culture - Final Stenotrophomonas maltophilia Acinetobacter baumannii Meth. resistant Staph. aureus 06/10/25 13:30 Wound Drainage - Aerobic & Anaerobic Swabs Anaerobic Culture - Final No anaerobic bacteria isolated. 06/10/25 11:25 Urine Catheter - Catheter Urine Culture - Final Enterobacter asburiae 06/10/25 13:15 Stool C. difficile GDH Antigen & Toxins - Final Toxigenic C. difficile 06/10/25 13:15 Stool Clostridioides difficile (PCR) - Final 06/10/25 10:48 Mucosa - Nasopharyngeal Respiratory Panel (PCR) - Final 06/10/25 11:32 Nasal Secretion SARS-CoV-2 Antigen (Rapid) - Final 06/03/25 Unknown Stool Stool Occult Blood (ERICA) - Final Occult Blood Positive Pharmacy Plan for Drug Dosing Pharmacy Plan for Drug Dosing: VANCOMYCIN LEVEL RECEIVED Current Vancomycin Dose: 1000MG Q12 Number of Doses Received: 7 Vancomycin Level: 25 mg/dL Hours Since Last Dose: 13 Renal Function: SCr 1.22 mg/dL, CrCl 42 ml/min (based on SCr from 06/10) Renal Function Trend: unknown, new SCr scheduled for tomorrow AM Vancomycin Plan/Comments: 13 hour trough is supratherapeutic at 25 mg/dL (goal 15-20). Will hold dosing and get a level with AM labs 06/16/25. Pending Level: 06/16/25 @ 0600 (with AM labs) Pharmacy Service will continue to monitor and adjust dosing as required. 06/15/25 1220 <Electronically signed by Evelin Rosado> Date _ Evelin Rosado 06/15/25 1321 <Electronically signed by Kwaku galan MD> Cosigner Signature (if applicable): Date Kwaku Mendoza MD CC: ~ Signed [facility] Work Phone: [phone]) 492-673707-28-2025 Telephone encounter Note* Telephone Encounter - Rishi Vasquez DO - 06/15/2025 7:33 AM EDT Noted Labs reviewed Please update the A1c and lipids results in Rishi Vasquez DO [facility]07-25-2025 Consult note Author Rin Guido [facility] Note Date/Time June 12, 2025 11:3 6am [facility] Medical Records Department [address] [place] [address] Pharmacokinetic/Renal -Consult 06/12/25 1115 MR#: [id number] Acct: [id number] Name: GELY FULLER Rep #:[id number] : 1950 75 From: Rin Guido PCP: Dr. Rishi Vasquez DO Status:AD M IN Y Location: [facility] TCU21-1 Consult Antibiotic Management Pharmacy has been consulted to manage selected antibiotic: Vancomycin Type of Intervention Type of Consult: Follow-up Labs Labs: Sodium 137 mmol/L (133-145) 06/10/25 11:29 Potassium 3.7 mmol/L (3.3-5.1) 06/10/25 11:29 Chloride 104 mmol/L (98-108) 06/10/25 11:29 Carbon Dioxide 22.3 mmol/L (21.0-32.0) 06/10/25 11:29 Anion Gap 11 (5-15) 06/10/25 11:29 BUN 55 mg/dL (4-19) H 06/10/25 11:29 Creatinine 1.22 mg/dL (0.70-1.20) H 06/10/25 11:29 Est GFR (MDRD) Non-Af 47 (>60) L 06/10/25 11:29 BUN/Creatinine Ratio 45.0 RATIO (10-20) H 06/10/25 11:29 Glucose 218 mg/dL (70-99) H 06/10/25 11:29 Vancomycin Trough 12.6 ug/mL (5.0-15.0) 06/12/25 08:55 Microbiology Microbiology: Microbiology 06/10/25 13:30 Wound Drainage - Aerobic & Anaerobic Swabs Gram Stain - Final 06/10/25 13:30 Wound Drainage - Aerobic & Anaerobic Swabs Wound Culture - Preliminary Gram negative maycol Gram negative maycol#2 Staphylococcus aureus 06/10/25 11:25 Urine Catheter - Catheter Urine Culture - Final Enterobacter asburiae 06/10/25 13:15 Stool C. difficile GDH Antigen & Toxins - Final Toxigenic C. difficile 06/10/25 13:15 Stool Clostridioides difficile (PCR) - Final 06/10/25 10:48 Mucosa - Nasopharyngeal Respiratory Panel (PCR) - Final 06/10/25 11:32 Nasal Secretion SARS-CoV-2 Antigen (Rapid) - Final 06/03/25 Unknown Stool Stool Occult Blood (ERICA) - Final Occult Blood Positive Dosing Weight Weight used for dosin kg Goal Trough Goal Trough: 15-20 mcg/mL Pharmacy Plan for Drug Dosing Pharmacy Plan for Drug Dosing: VANCOMYCIN LEVEL RECEIVED Current Vancomycin Dose: 500 MG Q12H Number of Doses Received: 2 (6664, 5344) Vancomycin Level: 12.6 Hours Since Last Dose: 11.5 Renal Function: 1.22 mg/dL, 42.04 ml/min Renal Function Trend: Stable Lab/Micro: Staphylococcus aureus + Gram Negative rods Vancomycin Plan/Comments: Due to subtherapeutic level, will increase dose to 750 mg q12h Pharmacy Service will continue to monitor and adjust dosing as required. Pending Level: 06/13/2025 @2200 Follow-Up Labs Follow-Up Labs: Trough: Vancomycin Date/Time Labs Ordered Labs to be done on [date and time ordered]: 06/13/2025 @ 22006/12/25 1121 <Electronically signed by Rin Marc ey> Date _ Rni Guido 06/12/25 1136 <Electronically signed by Phong Abraham> Cosigner Signature (if applicable): Date Phong Solomon MD CC: ~ Signed [facility] Work Phone: 1(291) 493-935207-25-2025 Telephone encounter Note* Telephone Encounter - Rachel Jacobs MA - 06/12/2025 1:25 PM EDT Scan on 06/12/2025 11:59 AM by Provider, SARIAH Morrison: Admit [facility] 06/12/25- Current A1C \T\ CMP for review Patient admitted to [facility] faxed current A1C & CMP results. Rachel Jacobs MA [facility]07-25-2025 Progress note Author Kwaku Mendoza [facility] Note Date/Time June 12, 2025 11:1 3am [facility] Medical Records Department [address] [facility] [place] [address] Progress Note - Infect Disease 06/12/25 1112 MR#: [id number] Acct: [id number] Name: GELY FULLER Melinda Rep #:[id number] : 1950 75 From: Kwaku díaz MD PCP: Dr. Rishi Vasquez, DO Status:AD M IN Location: [place] [address] Physical Exam Narrative Feeling better, diarrhea resolved, no fever, no abd pain Const alert and no apparent distress General Appearance: cooperative Resp normal air movement and clear to auscultation bilaterally Cardio regular rate and regular rhythm GI soft to palpation, non-tender and non-distended Skin Skin Narrative: ankle wrapped ID ID: Route of nutrition/ use of supplements: [] Nutritional Intake: [] IV Site: [] Gonzalez Catheter: [] Assessment & Plan Assessment/Plan (1) Type 2 diabetes mellitus with foot ulcer: PLAN: Recent wound cx with MRSA, Acinetobacter, prevotella, and anaerobes. Developed fever, worsened ankle wound, cxs sent. Now cdiff (+). Started po vanc. Wound cx with GNR x2 and staph aureus. Cont iv vanc/ceftriaxone/flagyl. Feeling better. Will follow (2) C. difficile diarrhea: 06/12/25 1113 <Electronically signed by Kwaku Mendoza MD> Cosigner Signature (if applicable): CC: ~ Signed [facility] Work Phone: 1(285) 895-570907-24-2025 Discharge summary [facility] Note Date/Time June 11, 2025 2:38 pm [facility] Medical Records Department [address] [place] [address] Emergency Department Summary 06/11/25 MR#: [id number] Acct: [id number] Name: GELY FULLER Rep #:[id number] : 1950 75 From: Shahnaz Iqbal PCP: Dr. Rishi Vasquez, DO Status:RE G ER Location: ED HPI History of Present Illness Chief Complaint: General Illness Informant: patient and SNF Narrative Narrative: Patient is a 75-year-old female presenting from TCU for concern of possible sepsis and continued fever. Patient is in the TCU for diabetic foot wound. Shehad a relatively protracted hospitalization with bilateral lower extremity ulceration and wounds in the setting of severe peripheral vascular disease and diabetes. Had skin grafting done on 05/20 with podiatry. Was seen by vascular surgery and had a left femoral endarterectomy with left femoral peroneal bypass on 05/26/2025. Hospital course was complicated by anemia and she did require 2 units of packed red blood cells. She was discharged on 06/01 to the TCU. Yesterday (06/10) she developed fever, generalized malaise and was also having diarrhea. She tested positive for C. difficile and urinalysis obtained was consistent with infection. Blood cultures and wound cultures also collected. She was evaluated by podiatry (Dr. Sinha) and infectious disease. She was started on IV vancomycin, Rocephin and Flagyl via PICC line. Has been started on oral vancomycin for C. difficile. This morning she reportedly looked poorly,had recurrent fever (100.2) and was hypotensive. She is sent to the ER for further evaluation and concern for sepsis. Patient states she actually feels better today. She denies any acute complaints. She is not aware of having a fever this morning. She did not receive any antipyretics prior to arrival. 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 History of MRSA infection Pressure ulcer Ambulates with cane Shortness of breath on exertion History of edema History of echocardiogram Fall Atherosclerosis of [place] artery of both lower extremities with gangrene [...] stage 3 Atherosclerosis of coronary artery of [place] heart without angina pectoris Hyperlipidemia Peripheral vascular [...] 81 mg PO QHS blood clots 01/13/14 05/31/25 20:15 History release multivitamin with folic acid 400 1 tab PO DAILY Supple ment 01/13/14 06/01/25 09:00 History mcg tablet omega-3 fatty acids-fish oil 340 1 ea PO DAILY supplem ent 06/29/16 08/27/16 History mg-1,000 mg capsule ferrous sulfate 325 mg (65 mg 325 mg PO DAILY SUPPLEME NT 08/15/18 06/10/25 History iron) tablet ascorbic acid (vitamin C) 500 mg 1,000 mg PO LUNCH Sup plement 11/25/20 06/01/25 12:50 History tablet calcium carbonate (Calcium 600) 600 mg PO DAILY supple ment 12/29/21 06/01/25 09:00 History clopidogrel 75 mg tablet 75 mg PO DAILY Blood clots # 90 tabs 10/23/24 06/01/25 09:00 Rx Lactobacillus acidophilus 600 mg PO QDAY gi 03/07/25 0 06/01/25 09:00 History (Acidophilus capsule) pregabalin 100 mg capsule 100 mg PO TID nerve pain 06/01/25 12:50 History simvastatin 20 mg tablet 20 mg PO QHS cholesterol #30 tabs 03/23/25 05/31/25 20:15 Rx nystatin 100,000 unit/gram topical 1 applic topical BI D PRN rash 05/07/25 Unknown History powder ([facility]) acetaminophen 650 mg 650 mg PO Q12H PRN pain 04/20 Unknown History tablet,extended release amlodipine 5 mg tablet 5 mg PO DAILY HTN #90 tabs 0 05/12/25 06/01/25 09:00 Rx metoprolol succinate 25 mg 12.5 mg (1/2 x 25 mg) PO DA NHI 05/12/25 06/01/25 09:00 Rx tablet,extended release 24 hr HEART RATE #45 tabs glimepiride 2 mg tablet 2 mg PO BID Diabetes 5 Unknown History gabapentin (bulk) 100 % powder 2 ea topical BID Pain # 0 grams 05/28/25 06/01/25 09:00 Rx linezolid 600 mg tablet 600 mg PO BID Antibiotic #21 tabs 05/28/25 Unknown Rx menthol 0.44 %-zinc oxide 20.6 % 1 applic topical BID Skin 05/28/25 Unknown Rx topical ointment (Calmoseptine) Irritation #0 grams oxycodone 5 mg tablet 5 mg PO Q4H PRN PRN Pain Sco re 05/28/25 05/30/25 Rx 4-10 #0 tabs Allergy/AdvReac Type Severity Reaction Status Date / Time Sulfa (Sulfonamide Allergy Unknown Verified 06/09/25 09:34 Antibiotics) Family History Father CAD (coronary artery [...] not use caffeine: No ROS ROS ED Constitutional Constitutional ED: Reports chills and fever(s) Eyes Eyes: Denies blurry vision Cardiovascular Cardiovascular: Denies chest pain Respiratory/Chest Respiratory/Chest: Denies cough or dyspnea Gastrointestinal Gastrointestinal: Reports diarrhea; Denies abdominal pain, nausea or vomiting Musculoskeletal Musculoskeletal: Reports myalgias and other Details: Chronic bilateral foot pain, no acute change Integumentary Denies rash Neurologic Neurologic: Reports weakness Hematologic/Lymphatic Hematologic/Lymphatic: Denies easy bleeding or easy bruising EXAM Physical Exam Const Vital Signs: 06/11/25 08:47 06/11/25 08:58 06/11/25 09:51 Temperature 98.4 F 98.6 F Temperature Source Oral Oral Pulse Rate 50 L 57 L Respiratory Rate 18 16 Respiratory Effort Normal Respiratory Pattern Normal Blood Pressure 104/43 L 102/38 L Blood Pressure Mean 63 59 Pulse Ox 95 99 Oxygen Delivery Method Room Air Room Air 06/11/25 10:43 06/11/25 11:00 06/11/25 12:00 Temperature 98.1 F 98.6 F Temperature Source Oral Oral Pulse Rate 58 L 52 L 56 L Respiratory Rate 16 15 18 Respiratory Effort Respiratory Pattern Blood Pressure 94/50 L 99/42 L 99/38 L Blood Pressure Mean 64 61 58 Pulse Ox 100 99 99 Oxygen Delivery Method Room Air Room Air Room Air 06/11/25 13:00 06/11/25 14:11 Temperature 98.8 F 98.7 F Temperature Source Oral Temporal Pulse Rate 60 54 L Respiratory Rate 18 11 L Respiratory Effort Respiratory Pattern Blood Pressure 113/48 L 117/50 L Blood Pressure Mean 69 72 Pulse Ox 100 94 Oxygen Delivery Method Room Air Room Air Positive well nourished and well developed General Appearance ED: well developed and NAD; Negative for pallor HEENT Reports dry mucous membranes Mouth ED: Yes dry mucous membranes Mouth: dry mucous membranes Eyes PERRL Neck supple and no JVD Chest Wall inspection of chest normal and palpation of chest normal Resp normal respiratory effort and clear to auscultation bilaterally Cardio regular rate, regular rhythm and no murmurs GI normal to inspection, nondistended, normoactive bowel sounds and non-tender Extremity Extremity Narrative: Brace on the left lower extremity. Buzz wrap's on the bilateral extremities are clean and dry. Neuro oriented x3 Sensorium / Orientation: alert Motor Exam: general weakness Psych mental status grossly normal Skin General Skin Exam: Negative for pallor MDM MDM MDM Narrative Medical decision making narrative: Patient evaluated for concern of sepsis. Was evaluated for fever yesterday in the TCU by PCP, podiatry and infectious disease. PICC line was placed and was started on IV antibiotics. This morning she had soft blood pressures and was quite ill- appearing per my conversation with Dr. Solomon. As patient had cultures yesterday do not think these need to be repeated. She had a urinalysis consistent with infection as well. Will check CBC, CMP and lactate. Patient actually is pretty well-appearing in the ER. On exam she states that she is actually feeling better today. Her blood pressure is soft in the emergency room. She is given a total of 2 L of IV fluid with significant improvement of her blood pressure. Her CBC shows anemia with a hemoglobin of 7.6 however this appears more chronic. Do not think she requires an emergent blood transfusion. She is not have any active signs of bleeding and I suspect her anemia is associated with her wounds on her leg and acute illness. Her CMP shows baseline elevation of her creatinine and hypokalemia but otherwise largelynormal. Lactate is normal. Low suspicion for severe sepsis or shock. Chest x-ray viewed by myself as well as radiology does not show any acute infectious etiology. Patient is given IV and oral potassium in the emergency room. As patient is fluid response. She is monitored after fluids and her blood pressure continues to remain normal. Suspect she had a component of intravascular depletion associated with her diarrhea and recent C. difficile. Discussed the case with Dr. Solomon and he states that if she has stable vital signs and seems to be doing better can be discharged back to TCU on her IV antibiotics. I think this is a reasonable plan of care. Do not think she requires repeat admission at this time. Lab Data Attestation: I reviewed the patient's lab results. Labs: Laboratory Results - last 24 hr 06/11/25 09:10 WBC 7.0 RBC 2.60 L Hgb 7.6 L Hct 23.5 L MCV 90.4 MCH 29.2 MCHC 32.3 RDW Std Deviation 50.3 H RDW Coeff of Jorgito 15.2 H Plt Count 167 MPV 11.4 Immature Gran % (Auto) 0.400 Neut % (Auto) 67.7 Lymph % (Auto) 14.9 L Lea % (Auto) 14.7 H Eos % (Auto) 1.7 Baso % (Auto) 0.6 Absolute Neuts (auto) 4.7 Absolute Lymphs (auto) 1.04 Nucleated RBC % 0 Sodium 139 Potassium 3.0 L Chloride 108 Carbon Dioxide 21.2 Anion Gap 9 BUN 53 H Creatinine 1.32 H Estim Creat Clear Calc 39.90 L Est GFR (MDRD) Non-Af 43 L BUN/Creatinine Ratio 40.1 H Glucose 58 L Lactic Acid < 1.0 Calcium 8.2 Magnesium 1.8 Total Bilirubin 0.25 AST 19 ALT 10 Alkaline Phosphatase 49 Total Protein 4.7 L Albumin 2.4 L Globulin 2.3 Albumin/Globulin Ratio 1.0 Radiography Chest X-Ray - ED: 2 View, Read by ED Physician, Read by Radiologist and No AcuteDisease Diagnostic Testing: Clinical Impression(s) from Imaging Studies Chest X-Ray 06/11/25 09:32 IMPRESSION: There is a central access catheter on the right with its tip centrally located in the superior vena cava. There is minimal atelectasis or scar at the right lung base. Reading Location: [facility] Management Discussion w/another healthcare provider: PCP Discharge Plan Triage Chief Complaint: General Illness ED Provider: Shahnaz Bishop Dx/Rx/DC Orders Clinical Impression: Hypotension, UTI (urinary tract infection), bacterial, Acute hypokalemia, Dehydration, Chronic osteomyelitis of left foot, CKD (chronic kidney disease), Chronic anemia Instructions: ED Dehydration (Adult), ED Hypokalemia Prescriptions: No Action calcium carbonate [Calcium 600] [...] 325 MG tablet 325 mg PO DAILY menthol-zinc oxide [Calmoseptine] 0.44-20.6 % Ointment 1 applic topical BID Qty: 0 0RF Protocol: *Topical Application Instructions APPLICATION INSTRUCTIONS: groin gabapentin (bulk) 100 % Powder 2 ea topical BID Qty: 0 0RF oxycodone 5 mg Tablet 5 mg PO Q4H PRN PRN (Reason: Pain Score 4-10) Qty: 0 0RF linezolid 600 mg Tablet 600 mg PO BID Qty: 21 0RF Rx Instructions: STOP DATE 06/01/25 AFTER AM DOSE. pregabalin 100 mg capsule 100 mg PO [...] Rishi Vasquez DO [Primary Care Provider] - Activity Restrictions/Additional Instructions: Sure his lab work was stable. She has a mild anemia which should continue to bemonitored but she does not require blood transfusion today. Her hemoglobin is 7.6. She did have signs of dehydration however her blood pressure improved significantly with 2 L of IV fluid. Continue to push fluids. Continue to give antibiotics. Print Language: Colombian Disposition Disposition: Assisted Facility Discharge Location: [facility] Transitional Care Unit What to do if you have Problems For any increased pain, shortness of breath, bleeding, nausea or vomiting, chestpain, or any unexpected problems, contact your Primary Care Provider. Call [facility] ([phone]) or report to the closest Emergency Room. Call 911 if necessary. 06/11/25 1438 <Electronically signed by Shahnaz Bishop DO> Cosigner Signature (if applicable): CC: Dr. Rishi Vasquez DO ~ Signed [facility] Work Phone: [phone] 143-282707-24-2025 Consult note Author Antonino Grimes [facility] Note Date/Time June 11, 2025 9:00 am [facility] Medical Records Department [address] [place] [address] Pharmacokinetic/Renal -Consult 06/10/25 1354 MR#: [id number] Acct: [id number] Name: GELY FULLER Rep #:[id number] : 1950 75 From: Antonino bledsoe PCP: Dr. Rishi Vasquez DO Status:AD M IN Y Location: [place] [address] Consult Antibiotic Management Pharmacy has been consulted to manage selected antibiotic: Vancomycin Type of Intervention Type of Consult: New start Suspected Infection Suspected Infection: Osteomyelitis Labs Labs: Sodium 137 mmol/L (133-145) 06/10/25 11:29 Potassium 3.7 mmol/L (3.3-5.1) 06/10/25 11:29 Chloride 104 mmol/L (98-108) 06/10/25 11:29 Carbon Dioxide 22.3 mmol/L (21.0-32.0) 06/10/25 11:29 Anion Gap 11 (5-15) 06/10/25 11:29 BUN 55 mg/dL (4-19) H 06/10/25 11:29 Creatinine 1.22 mg/dL (0.70-1.20) H 06/10/25 11:29 Est GFR (MDRD) Non-Af 47 (>60) L 06/10/25 11:29 BUN/Creatinine Ratio 45.0 RATIO (10-20) H 06/10/25 11:29 Glucose 218 mg/dL (70-99) H 06/10/25 11:29 Microbiology Microbiology: Microbiology 06/10/25 11:32 Nasal Secretion SARS-CoV-2 Antigen (Rapid) - Final 06/03/25 Unknown Stool Stool Occult Blood (ERICA) - Final Occult Blood Positive Dosing Weight Weight used for dosin.2 kg Estimated Creatinine Clearance Estimated Creatinine Clearance: 42 Goal Trough Goal Trough: 15-20 mcg/mL Pharmacy Plan for Drug Dosing Pharmacy Plan for Drug Dosing: Pharmacy Service will continue to monitor and adjust dosing as required. NEW START IV VANCOMYCIN Consulting Physician: TREMAYNE Indication: FEBRILE OVERNIGHT WITH CONCERN FOR OSTEOMYELITIS OF LEFT FOOT Goal Trough: 15-20 SrCr: 1.22 CrCl: 42 Comments: 75 YOF WITH A HISTORY OF OSTEOMYELITIS OF HER LEFT FOOT S/P LOWER LEFTREVASCULARIZATION 05/26 WITH A FEVER OVERNIGHT OF 101.3. OTHER ABX: CEFTRIAXONE, METRONIDAZOLE, CIPROFLOXACIN Cultures: BLOOD: PENDING, WOUND: PENDING Vancomycin Dose: LD: 1750 MG ONCE, MD: 500 MG Q12H WITH FIRST DOSE 06/11 @ 0200 Pending Level: 06/12 @ 0130 Date/Time Labs Ordered Labs to be done on [date and time ordered]: TROUGH ORDERED 06/12 @ 0130 06/10/25 1608 <Electronically signed by Antonino Villatoro> Date _ Antonino Grimes 06/11/25 0900 <Electronically signed by Kwaku galan MD> Cosigner Signature (if applicable): Date Kwaku Mendoza MD CC: ~ Signed [facility] Work Phone: 1(134) 183-556007-24-2025 Radiology Diagnostic [facility] [id number] Progress note Author Patel Irene [facility] Note Date/Time June 10, 2025 5:17 pm [facility] Medical Records Department [address] [place] [address] Progress Note - Surgery 06/10/25 1406 MR#: [id number] Acct: [id number] Name: GELY FULLER Rep #:[id number] : 1950 75 From: Patel Abraham PM PCP: Dr. Rishi Vasquez, DO Status:AD M IN Location: [place] [address] Subjective Subjective Patient is a 75-year-old diabetic female seen at bedside today for amniotic skingraft substitute removal and evaluation. Patient does admit to a fever overnight and has been treated by the medical staff at the transitional care unit. Patient does admit to not feeling well with some mild dry cough and some diarrhea. There is no evidence of dysuria or headaches. She denies any pain tothe right or left lower extremity. She denies trauma. No other pedal complaints at this time. Objective Data Objective Data Vital Signs: Vital Signs Temp Pulse Resp BP Pulse Ox O2 Del Method 101.3 F H 88 17 134/44 H 98 Room Air 06/10/25 10:21 06/10/25 10:42 06/10/25 10:21 06/10/25 10:42 06/10/25 10:21 06/10/25 10:21 Oxygen Delivery Method Room Air Weight: 73.17 kg Body Mass Index (BMI) 26.0 Intake & Output: Intake and Output for Last 24 Hours 06/08/25 06/09/25 06/10/25 23:59 23:59 23:59 Intake Total 360 / 360 240 / 240 240 / 240 Balance 360 / 360 240 / 240 240 / 240 Lab / Micro Data 06/10/25 11:29 06/10/25 11:29 Labs: Laboratory Results - last 24 hr 06/09/25 16:36: POC Glucose 236 H 06/10/25 05:57: POC Glucose 148 H 06/10/25 10:14: POC Glucose 205 H 06/10/25 11:25: Urine Color Yellow, Urine Clarity Sl. Cloudy, Urine pH 6.0, Ur Specific [place] 1.015, Urine Protein 30 H, Urine Glucose (UA) Normal, Urine Ketones Negative, Urine Occult Blood 50 H, Urine Nitrite Positive H, Urine Bilirubin Negative, Urine Urobilinogen Normal, Ur Leukocyte Esterase 500 H, Urine RBC 0 SEEN, Urine WBC 25-50 SEEN, Ur Squamous Epith Cells 0-5 SEEN, Urine Bacteria 1+, Urine Mucus 0 SEEN 06/10/25 11:29: WBC 8.3, RBC 2.80 L, Hgb 8.3 L, Hct 25.7 L, MCV 91.8, MCH 29.6, MCHC 32.3, RDW Std Deviation 49.3 H, RDW Coeff of Jorgito 14.7 H, Plt Count 169, MPV12.0, Immature Gran % (Auto) 0.400, Neut % (Auto) 81.0 H, Lymph % (Auto) 8.2 L, Lea % (Auto) 9.4, Eos % (Auto) 0.6, Baso % (Auto) 0.4, Absolute Neuts (auto) 6.8, Absolute Lymphs (auto) 0.68 L, Nucleated RBC % 0, Sodium 137, Potassium 3.7, Chloride 104, Carbon Dioxide 22.3, Anion Gap 11, BUN 55 H, Creatinine 1.22 H, Estim Creat Clear Calc 42.04 L, Est GFR (MDRD) Non-Af 47 L, BUN/Creatinine Ratio 45.0 H, Glucose 218 H, Calcium 8.5 Micro: Microbiology 06/10/25 11:32 Nasal Secretion SARS-CoV-2 Antigen (Rapid) - Final 06/03/25 Unknown Stool Stool Occult Blood (ERICA) - Final Occult Blood Positive Physical Exam Narrative Vascular: DP and PT pulses are palpable to the right and left lower extremities. CFT is brisk. Evidence of blanchable erythema appreciated to the left ankle and foot. No erythema appreciated to the right foot. Neurological: Light touch intact. Patient does respond to painful stimuli to the left lower extremity. Dermatological: Full-thickness wound to the right posterior heel stable with granular wound base no sign of infection. Multiple full-thickness wound appreciated to the left lower extremity. There is evidence of exposed tendon tothe anterior lateral full-thickness wound with positive probe to periosteum at the level of the ankle with erythema to the periwound as well as to the left proximal foot and ankle, with concern of infection. Full-thickness wounds to the left lower extremity heel, leg and distal foot are stable with fibrogranularbase with no concern of infection. Musculoskeletal: Mild pain to palpation to the full-thickness wound to the anterior lateral ankle. No pain to palp patient to remaining bilateral full-thickness wound. Assessment & Plan Assessment/Plan (1) Cellulitis of left ankle: PLAN: Patient was examined and evaluated. All findings were discussed with the patient. All questions were answered to the patient satisfaction. Ankle x-rays: Pending The patient's bilateral amniotic skin graft substitute were removed with staple removal. The bilateral wounds except for the ankle were granular in nature withno concern of infection. Further evaluation of the left ankle wound show evidence of exposed tendon with positive probe to bone with concern of infection. Wound wound care nurse was provided for dressing changes consisting of Dakin soaked gauze, dry sterile dressing and light compression wrap to the bilateral lower extremity. This will be changed daily. Did discuss the nature of the wound with infectious disease. Infectious diseaseremoved forward with PICC line antibiotics, vancomycin, ceftriaxone and Flagyl. Left anterior ankle full-thickness wound culture: Pending Blood culture: Pending COVID 19: Negative Urine culture: Pending Respiratory panel: Negative WBC: 8.3 ESR: Pending CRP: Pending Medicine: On board, medical management Infectious disease: On board, IV antibiotics, vancomycin, ceftriaxone and Flagyl Podiatry will continue to follow while the patient is in house and agree with infectious disease for PICC line antibiotics. No plan for surgical interventionwith the patient is TCU. I do recommend the patient staying in TCU as she is at risk for falls especiallyif going home alone and having to provide self-care. The patient will benefit from staying in TCU as she will continue to get stronger working with physical therapy and Occupational Therapy and having [id number]-[id number] care with the nursing staff in the transitional care unit. Weightbearing status: Patient can be full weightbearing as tolerated in surgicalshoes to the bilateral lower extremity. Please reach out to Dr. Irene with any questions or concerns. Thank you for letting me be involved in the patient care. (2) Non-pressure chronic ulcer of left ankle with necrosis of muscle: (3) Acute painful diabetic polyneuropathy: (4) 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 foot with fat layer exposed: (5) Non-pressure chronic ulcer of other part of right foot with fat layer exposed: (6) Other specified peripheral vascular diseases: (7) Charcot joint of foot: 06/10/251716 <Electronically signed by Patel Irene DPM> Cosigner Signature (if applicable): CC: ~ Signed [facility] Work Phone: [phone]) 944-122207-23-2025 Radiology Diagnostic study [facility]07-23-2025 Progress note Author [facility] Note Date/Time June 10, 2025 1:39 pm [facility] Medical Records Department [address] [place] [address] Progress Note - Infect Disease 06/10/256 MR#: [id number] Acct: [id number] Name: GELY FULLER Rep #:[id number] : 1950 75 From: Kwaku díaz MD PCP: Dr. Rishi Vasquez, DO Status:AD IN Location: [place] [address] Physical Exam Narrative Fever overnight, not feeling well, some mild dry cough, some diarrhea. No dysuria, no headache. Wound cx collected today. Const alert and no apparent distress General Appearance: cooperative Resp normal air movement and clear to auscultation bilaterally Cardio regular rate and regular rhythm GI soft to palpation, non-tender and non-distended Extremity General Extremity: Negative for edema Skin Skin Narrative: L foot/ankle wrapped ID ID: Route of nutrition/ use of supplements: [] Nutritional Intake: [] IV Site: [] Gonzalez Catheter: [] Assessment & Plan Assessment/Plan (1) Type 2 diabetes mellitus with foot ulcer: PLAN: Recent wound cx with MRSA, Acinetobacter, prevotella, and anaerobes. Now with fever, worsened ankle wound, cxs sent. Stool and resp panel pending. Will order picc and iv vanc/ceftriaxone/flagyl. Will follow, d/w nursing and Dr. Irene 06/10/251338 <Electronically signed by Kwaku Mendoza MD> Cosigner Signature (if applicable): CC: ~ Signed [facility] Work Phone: [phone] 114-202307-18-2025 Consult note Author Zachary Rodriguez [facility] Note Date/Time June 05, 2025 7:23 pm [facility] Medical Records Department [address] [place] [address] Anesthesia Postop Eval II 06/05/251917 MR#: [id number] Acct: [id number] Name: GELY FULLER Rep #:[id number] : 1950 75 From: Zachary Rodriguez MD PCP: Dr. Rishi Vasquez, DO Status:RE G SDC Y Race: C Location: [facility] AC- TBA-1 Anesthesia Postop Eval I Sum Postop Eval Completion status Anesthesia document: Postop Eval 1 completed: Yes Anesthesia Postop Eval I Summary Anesthesia Postop Eval I Summary: Anesthesia Postop Eval I: Assessment Summary Airway patent Yes 06/05/25 18:50 Spontaneous unlabored Yes 06/05/25 18:50 respirations Mental status Awake,Calm 06/05/25 18:50 nausea No 06/05/25 18:50 Vomiting No 06/05/25 18:50 Anesthesia Postop Eval I: Fluid Summary Crystalloid volume administer 250 06/05/25 18:50 (ml) Colloids volume administered ( ml) Blood Product volume administered (ml) Total IV fluid infused 250 06/05/25 18:50 Anesthesia Postop Eval I: Summary Notes Anesthesia Complication No 06/05/25 18:50 Anesthesia Complication Comment: Post-operative progress note Anesthesia: Postop Eval II Evaluation Mental status: Awake and Calm Pain Level: 0 nausea: No Vomiting: No Complications Anesthesia Complication: No 06/05/251917 <Electronically signed by Zachary mcguire MD> Date _ Zachary Rodriguez MD Cosigner Signature: Date CC: ~ Signed [facility] Work Phone: [phone]) 993-616407-18-[address] [facility] Note Date/Time June 05, 2025 6:50 pm [facility] Medical Records Department [address] [place] [address] Anesthesia Postop Eval I 06/05/25 1848 MR#: [id number] Acct: [id number] Name: GELY FULLER Rep #:[id number] : 1950 75 From: Zachary Rodriguez MD PCP: Dr. Rishi Vasquez, DO Status:RE G SDC Y Race: C Location: [place] [address] Anesthesia: Postop Eval I Current Vital Signs Temperature: 97.4 F Pulse Rate: 61 Blood Pressure: 119/54 Respiratory Rate: 16 Pulse Ox: 100 Oxygen Delivery Method: Room Air Assessment Airway patent: Yes Spontaneous unlabored respirations: Yes Mental status: Awake and Calm nausea: No Vomiting: No Anesthesia Complication: No Fluid Hydration Crystalloid volume administer (ml): 250 Total IV fluid infused: 250 Progress Note Anesthesia document: Postop Eval 1 completed: Yes 06/05/25 1850 <Electronically signed by Zachary mcguire MD> Date _ Zachary Rodriguez MD Cosigner Signature: Date CC: ~ Signed [facility] Work Phone: [phone] 200-670307-18-[address] [facility] Note Date/Time June 05, 2025 6:23 pm [facility] Medical Records Department [address] [place] [address] Pre-Anesthesia Evaluation 06/05/25 1818 MR#: [id number] Acct: [id number] Name: GELY FULLER Rep #:[id number] : 1950 75 From: Zachary Rodriguez MD PCP: Dr. Rishi Vasquez, DO Status:RE G SDC Y Race: C Location: [place] [address] ASA Classification* ASA Classification ASA Classification: 3 and E Assessment & Plan Anesthesia* Anesthesia Assessment Anesthesia [...] risk assessments. Anesthesia Type Anesthesia Type: MAC History Source History Obtained from:: Patient and Chart Anesthesia Focused Assessment* Temperature: 98.1 F Pulse Rate: 52 Blood Pressure: 124/48 Respiratory Rate: 18 Pulse Ox: 98 Oxygen Delivery Method: Room Air Airway Assessment Mouth opens: >3 cm Mallampati Score: III Teeth Condition: Dentures (Top and bottom dentures are out.) Neck Range of motion (ROM): Limited ROM (Slight decrease in extension) Labs Anesthesia Preop lab: CBC WBC 3.8 K/mm3 (4.4-11.0) L 06/02/25 05:27 06/02/25 RBC 2.66 M/mm3 (4.2-5.4) L 06/02/25 05:27 06/02/25 Hgb 9.3 g/dL (12.0-15.0) L 06/03/25 15:51 06/03/25 Hct 28.0 % (37-47) L 06/03/25 15:51 06/03/25 Plt Count 109 K/mm3 (150-450) L 06/02/25 05:27 06/02/25 CHEMISTRY Potassium 4.5 mmol/L (3.3-5.1) 06/02/25 05:27 06/02/25 Sodium 137 mmol/L (133-145) 06/02/25 05:27 06/02/25 Magnesium 1.8 mg/dL (1.5-2.2) 06/01/25 10:07 06/01/25 Phosphorus 3.5 mg/dL (2.7-4.5) 06/01/25 10:07 06/01/25 BUN 76 mg/dL (4-19) H 06/02/25 05:27 06/02/25 Creatinine 1.22 mg/dL (0.70-1.20) H 06/02/25 05:27 Glucose 181 mg/dL (70-99) H 06/02/25 05:27 06/02/25 POC Glucose 108 mg/dL (74-106) H 06/05/25 17:45 06/05/25 TSH < 0.01 uIU/mL (0.358-3.74) L 02/07/17 09:38 COAG PT 14.5 SECONDS (11.7-14.9) 05/27/25 03:05 Pre-Assessment Diagnosis/Proposed Procedure Planned Operative Procedure(s): EGD 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 Hx Hospitalization Yes: 02/2025 FELL 05/08/25 10:01 Any Problems With Anesthesia No 05/25/25 21:37 Cholinesterase deficiency No 05/25/25 21:37 You/Your Family Experience No 05/25/25 21:37 fever (hyperthermia) with Relationship Recent Exposure to Contagious No 06/05/25 17:32 Disease Does patient have nerve No 05/25/25 21:37 stimulator Patient instructed to have device shut off --Does patient have Pacemaker No 06/05/25 17:32 or ICD? When Was Last Pacemaker Check QUESTION #4 FULL TEXT: You/Your Family Experience fever (hyperthermia) with Anesthesia Last Oral Intake Last Oral intake: Last Oral Intake NPO since 18:30 06/05/25 17:32 Meds taken in AM with sips of Yes 06/05/25 17:32 water? Meds patient instructed to take am of surgery Any additional information?: Yes Meds taken in AM with sips of water?: Yes PONV PONV - wedding planning internship: PONV - wedding planning internship Female HX of Motion Sickness HX of N/V After Surgery Non-Smoker Duration of Surgery greater than 60 minutes Number of Risk Factors PONV Score Height & Weight Height & Weight: Anesthesia: Height & Weight Height 5 ft 6 in 06/05/25 17:32 Weight: 73.457 kg 07/18/25 17:32 Body Mass Index (BMI) 26.1 06/05/25 17:32 Respiratory Assessment Respiratory Assessment - wedding planning internship: Respiratory Tract Infection Hx - wedding planning internship Hx Respiratory Tract Infection No 05/25/25 21:37 STOP Sleep Apnea STOP Sleep Apnea - wedding planning internship: STOP Sleep Apnea - wedding planning internship Hx Hypertension Yes 06/02/25 11:36 Hx Sleep Apnea No 06/01/25 18:32 CPAP No 05/26/25 14:34 BIPAP No 05/22/25 14:40 Do you snore loudly (louder than talking or can be heard Do you often feel tired/ fatigued/ sleepy during daytime? Has anyone observed you stop breathing during sleep? STOP Results QUESTION #5 FULL TEXT : Do you snore loudly (louder than talking or can be heard through closed doors)? 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 planning internship Tobacco Use Cigarettes 04/02/24 09:13 Smoking Status Former smoker 06/01/25 18:32 Hx Tobacco Use No 06/01/25 18:32 Years Smoking Packs Smoked per Day Smoking Cessation Date was within the last 15 years Hx Smoking Cessation Date Hx Smoking Cessation No 06/01/25 18:32 Counseling Hematologic Medial History Hematologic Hx - wedding planning internship: Hematologic Medical Hx - wellhead pumper Hx of Blood Transfusion Hx of Transfusion in last 3 Months Date of Last Transfusion (if within last 3 months) Ever experience any problems with transfusion(s)? Specify any problems Hx of Preganancy in last 3 Months Nurse Filling Out Transfusion & Questions: Date: Time: Patient unable to answer at this time (ie. confused, unrespo /Reproduction History /Reproductive History - wedding planning internship: /Reproductive Hx- wedding planning internship Hx Now Gestational Age (in weeks): EDC: Hx Hx Para Hx Section SAB No 05/25/25 21:37 Active Medications Active Medications: Current Medications Generic Name Dose Route Start Last Admin Trade Name Freq PRN Reason Stop Dose Admin Lactated Ringer's 1,000 mls @ 15 mls/hr 06/05/25 17:30 06/05/25 17:47 IV 15 mls/hr .Q48H HADLEY Administration PFSH Medical History Anemia Other specified peripheral vascular diseases Non-pressure chronic ulcer of other part of right foot with fat layer exposed 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 foot with fat layer exposed Type 2 diabetes mellitus with foot ulcer 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 History of MRSA infection Pressure ulcer Ambulates with cane Shortness of breath on exertion History of edema History of echocardiogram Fall Atherosclerosis of [place] artery of both lower extremities with gangrene [...] stage 3 Atherosclerosis of coronary artery of [place] heart without angina pectoris Hyperlipidemia Peripheral vascular [...] 81 mg PO QHS blood clots 01/13/14 05/31/25 20:15 History release multivitamin with folic acid 400 1 tab PO DAILY Supple ment 01/13/14 06/01/25 09:00 History mcg tablet omega-3 fatty acids-fish oil 340 1 ea PO DAILY supplem ent 06/29/16 08/27/16 History mg-1,000 mg capsule ferrous sulfate 325 mg (65 mg 325 mg PO DAILY SUPPLEME NT 08/15/18 06/01/25 12:50 History iron) tablet ascorbic acid (vitamin C) 500 mg 1,000 mg PO LUNCH Sup plement 11/25/20 06/01/25 12:50 History tablet calcium carbonate (Calcium 600) 600 mg PO DAILY supple ment 12/29/21 06/01/25 09:00 History clopidogrel 75 mg tablet 75 mg PO DAILY Blood clots # 90 tabs 10/23/24 06/01/25 09:00 Rx Lactobacillus acidophilus 600 mg PO QDAY gi 03/07/25 0 06/01/25 09:00 History (Acidophilus capsule) pregabalin 100 mg capsule 100 mg PO TID nerve pain 06/01/25 12:50 History simvastatin 20 mg tablet 20 mg PO QHS cholesterol #30 tabs 03/23/25 05/31/25 20:15 Rx nystatin 100,000 unit/gram topical 1 applic topical BI D PRN rash 05/07/25 Unknown History powder ([facility] acetaminophen 650 mg 650 mg PO Q12H PRN pain 04/20 Unknown History tablet,extended release amlodipine 5 mg tablet 5 mg PO DAILY HTN #90 tabs 0 05/12/25 06/01/25 09:00 Rx metoprolol succinate 25 mg 12.5 mg (1/2 x 25 mg) PO DA NHI 05/12/25 06/01/25 09:00 Rx tablet,extended release 24 hr HEART RATE #45 tabs glimepiride 2 mg tablet 2 mg PO BID Diabetes 5 Unknown History gabapentin (bulk) 100 % powder 2 ea topical BID Pain # 0 grams 05/28/25 06/01/25 09:00 Rx linezolid 600 mg tablet 600 mg PO BID Antibiotic #21 tabs 05/28/25 Unknown Rx menthol 0.44 %-zinc oxide 20.6 % 1 applic topical BID Skin 05/28/25 Unknown Rx topical ointment (Calmoseptine) Irritation #0 grams oxycodone 5 mg tablet 5 mg PO Q4H PRN PRN Pain Sco re 05/28/25 05/30/25 Rx 4-10 #0 tabs Allergy/AdvReac Type Severity Reaction Status Date / Time Sulfa (Sulfonamide Allergy Unknown Verified 05/22/25 11:05 Antibiotics) Family History Father CAD (coronary artery [...] and no additional complaints, except as documented. 06/05/25 1823 <Electronically signed by Zachary mcguire MD> Date _ Zachary Rodriguez MD Cosigner Signature: Date CC: ~ Signed [facility] Work Phone: 1(545) 224-394707-18-2025 History and physical note Author Oretga Friend [facility] Note Date/Time June 05, 2025 5:40 pm [facility] Medical Records Department [address] [place] [id number] History & Physical Exam 06/05/25 1739 MR#: [id number] Acct: [id number] Name: GELY FULLER Rep #:[id number] : 1950 75 From: Ortega Yanez DO PCP: Dr. Rishi Vasquez DO Status:[facility] Location: [facility] AC-TB A-1 HPI - General General Date of Admission: 06/05/25 Date of Service: 06/05/25 Chief Complaint: Anemia HPI Narrative GELY FULLER, is a 75-year-old lady with past medical history signal for PAD with previous angioplasty, diabetes mellitus type 2,Recent debridement of surgical debridement of chronic bilateral lower extremity DFU's admitted with progressive generalized weakness she also has a history of bilateral lower extremity ulcerations and wounds in setting of severe peripheral vascular disease and diabetes. She had a skin graft done on 05 20. She developed peripheral vascular disease in her arteries and veins. She was seen by Dr. Russell Clement and underwent left femoral endarterectomy alongwith left Pond peroneal bypass with left sartorius flap on 05/26/2025. Since being in the TCU she has had a drop in her hemoglobin. She has baseline anemia chronic disease but she has been also having some abdominal pain. [facility] Medical History Anemia Other specified peripheral vascular diseases Non-pressure chronic ulcer of other part of right foot with fat layer exposed 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 foot with fat layer exposed Type 2 diabetes mellitus with foot ulcer 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 History of MRSA infection Pressure ulcer Ambulates with cane Shortness of breath on exertion History of edema History of echocardiogram Fall Atherosclerosis of [place] artery of both lower extremities with gangrene [...] stage 3 Atherosclerosis of coronary artery of [place] heart without angina pectoris Hyperlipidemia Peripheral vascular [...] 81 mg PO QHS blood clots 01/13/14 05/31/25 20:15 History release multivitamin with folic acid 400 1 tab PO DAILY Supple ment 01/13/14 06/01/25 09:00 History mcg tablet omega-3 fatty acids-fish oil 340 1 ea PO DAILY supplem ent 06/29/16 08/27/16 History mg-1,000 mg capsule ferrous sulfate 325 mg (65 mg 325 mg PO DAILY SUPPLEME NT 08/15/18 06/01/25 12:50 History iron) tablet ascorbic acid (vitamin C) 500 mg 1,000 mg PO LUNCH Sup plement 11/25/20 06/01/25 12:50 History tablet calcium carbonate (Calcium 600) 600 mg PO DAILY supple ment 12/29/21 06/01/25 09:00 History clopidogrel 75 mg tablet 75 mg PO DAILY Blood clots # 90 tabs 10/23/24 06/01/25 09:00 Rx Lactobacillus acidophilus 600 mg PO QDAY gi 03/07/25 0 06/01/25 09:00 History (Acidophilus capsule) pregabalin 100 mg capsule 100 mg PO TID nerve pain 06/01/25 12:50 History simvastatin 20 mg tablet 20 mg PO QHS cholesterol #30 tabs 03/23/25 05/31/25 20:15 Rx nystatin 100,000 unit/gram topical 1 applic topical BI D PRN rash 05/07/25 Unknown History powder (Nyamyc) acetaminophen 650 mg 650 mg PO Q12H PRN pain 04/20 Unknown History tablet,extended release amlodipine 5 mg tablet 5 mg PO DAILY HTN #90 tabs 0 05/12/25 06/01/25 09:00 Rx metoprolol succinate 25 mg 12.5 mg (1/2 x 25 mg) PO DA NHI 05/12/25 06/01/25 09:00 Rx tablet,extended release 24 hr HEART RATE #45 tabs glimepiride 2 mg tablet 2 mg PO BID Diabetes 5 Unknown History gabapentin (bulk) 100 % powder 2 ea topical BID Pain # 0 grams 05/28/25 06/01/25 09:00 Rx linezolid 600 mg tablet 600 mg PO BID Antibiotic #21 tabs 05/28/25 Unknown Rx menthol 0.44 %-zinc oxide 20.6 % 1 applic topical BID Skin 05/28/25 Unknown Rx topical ointment (Calmoseptine) Irritation #0 grams oxycodone 5 mg tablet 5 mg PO Q4H PRN PRN Pain Sco re 05/28/25 05/30/25 Rx 4-10 #0 tabs Allergy/AdvReac Type Severity Reaction Status Date / Time Sulfa (Sulfonamide Allergy Unknown Verified 05/22/25 11:05 Antibiotics) Family History Father CAD (coronary artery [...] not use caffeine: No ROS Constitutional Constitutional: Denies fatigue, fever(s), poor appetite, weight gain or weight loss Gastrointestinal Gastrointestinal: Denies belching, bloating, change in bowel habits, change in stool character, chewing difficulty, coffee ground emesis, constipation, cramping, diarrhea, dyspepsia, dysphagia, early satiety, excessive flatus, fecalincontinence, heartburn, hematemesis, hematochezia, hemorrhoids, loose stools, melena, nausea, odynophagia, rectal bleeding, tenesmus, vomiting or weight changes Assessment & Plan Assessment/Plan (1) Anemia: PLAN: Patient's hemoglobin went down to 7.8 and she received 1 unit packed red blood cells went up to 9.3. Since she needs to go on anticoagulation due to severe peripheral vascular disease and dual antiplatelet therapy. She should undergo an upper endoscopy evaluate upper GI tract. 06/05/25 1740 <Electronically signed by Ortega Yanez DO> Cosigner Signature (if applicable): CC: Dr. Rishi Vasquez DO; Ortega Yanez DO~ Signed [facility] Work Phone: 1(862) 791-712307-18-2025 Procedure [facility] 06-05-2025 Procedure [facility]07-17-2025 Consult note Author Ortega Yanez [facility] Note Date/Time June 04, 2025 6:09 pm [facility] Medical Records Department [address] [place] [address] Consultation - GI 06/04/25 1805 MR#: [id number] Acct: [id number] Name: GELY FULLER Rep #:[id number] : 1950 75 From: Ortega Yanez DO PCP: Dr. Rishi Vasquez DO Status:AD M IN Location: TCU [place] [address] HPI Consult Data Date of Consult: 06/04/25 HPI Narrative Reason for Consultation: Anemia HPI Narrative: 75-year-old lady with past medical history signal for PAD with previous angioplasty, diabetes mellitus type 2,Recent debridement of surgical debridementof chronic bilateral lower extremity DFU's admitted with progressive generalizedweakness she also has a history of bilateral lower extremity ulcerations and wounds in setting of severe peripheral vascular disease and diabetes. She had askin graft done on 05 20. She developed peripheral vascular disease in her arteries and veins. She was seen by Dr. Russell Clement and underwent left femoral endarterectomy alongwith left Pond peroneal bypass with left sartorius flap on 05/26/2025. Since being in the TCU she has had a drop in her hemoglobin. She has baseline anemia chronic disease but she has been also having some abdominal pain. [facility] Medical History (Updated 06/04/25 @ 18:[address] Vivas Friend, ) Anemia Other specified peripheral vascular diseases Non-pressure chronic ulcer of other part of right foot with fat layer exposed 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 foot with fat layer exposed Type 2 diabetes mellitus with foot ulcer 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 History of MRSA infection Pressure ulcer Ambulates with cane Shortness of breath on exertion History of edema History of echocardiogram Fall Atherosclerosis of [place] artery of both lower extremities with gangrene [...] stage 3 Atherosclerosis of coronary artery of [place] heart without angina pectoris Hyperlipidemia Peripheral vascular [...] 81 mg PO QHS blood clots 01/13/14 05/31/25 20:15 History release multivitamin with folic acid 400 1 tab PO DAILY Supple ment 01/13/14 06/01/25 09:00 History mcg tablet omega-3 fatty acids-fish oil 340 1 ea PO DAILY supplem ent 06/29/16 08/27/16 History mg-1,000 mg capsule ferrous sulfate 325 mg (65 mg 325 mg PO DAILY SUPPLEME NT 08/15/18 06/01/25 12:50 History iron) tablet ascorbic acid (vitamin C) 500 mg 1,000 mg PO LUNCH Sup plement 11/25/20 06/01/25 12:50 History tablet calcium carbonate (Calcium 600) 600 mg PO DAILY supple ment 12/29/21 06/01/25 09:00 History clopidogrel 75 mg tablet 75 mg PO DAILY Blood clots # 90 tabs 10/23/24 06/01/25 09:00 Rx Lactobacillus acidophilus 600 mg PO QDAY gi 03/07/25 0 06/01/25 09:00 History (Acidophilus capsule) pregabalin 100 mg capsule 100 mg PO TID nerve pain 06/01/25 12:50 History simvastatin 20 mg tablet 20 mg PO QHS cholesterol #30 tabs 03/23/25 05/31/25 20:15 Rx nystatin 100,000 unit/gram topical 1 applic topical BI D PRN rash 05/07/25 Unknown History powder ([facility]) acetaminophen 650 mg 650 mg PO Q12H PRN pain 04/20 Unknown History tablet,extended release amlodipine 5 mg tablet 5 mg PO DAILY HTN #90 tabs 0 05/12/25 06/01/25 09:00 Rx metoprolol succinate 25 mg 12.5 mg (1/2 x 25 mg) PO DA NHI 05/12/25 06/01/25 09:00 Rx tablet,extended release 24 hr HEART RATE #45 tabs glimepiride 2 mg tablet 2 mg PO BID Diabetes 5 Unknown History gabapentin (bulk) 100 % powder 2 ea topical BID Pain # 0 grams 05/28/25 06/01/25 09:00 Rx linezolid 600 mg tablet 600 mg PO BID Antibiotic #21 tabs 05/28/25 Unknown Rx menthol 0.44 %-zinc oxide 20.6 % 1 applic topical BID Skin 05/28/25 Unknown Rx topical ointment (Calmoseptine) Irritation #0 grams oxycodone 5 mg tablet 5 mg PO Q4H PRN PRN Pain Sco re 05/28/25 05/30/25 Rx 4-10 #0 tabs Allergy/AdvReac Type Severity Reaction Status Date / Time Sulfa (Sulfonamide Allergy Unknown Verified 05/22/25 11:05 Antibiotics) Family History Father CAD (coronary artery [...] not use caffeine: No ROS Constitutional Constitutional: Denies fatigue, fever(s), poor appetite, weight gain or weight loss Gastrointestinal Gastrointestinal: Denies belching, bloating, change in bowel habits, change in stool character, chewing difficulty, coffee ground emesis, constipation, cramping, diarrhea, dyspepsia, dysphagia, early satiety, excessive flatus, fecalincontinence, heartburn, hematemesis, hematochezia, hemorrhoids, loose stools, melena, nausea, odynophagia, rectal bleeding, tenesmus, vomiting or weight changes Physical Exam Const alert, oriented x3, no apparent distress and healthy appearing General Appearance: cooperative GI normal to inspection, nondistended, normoactive bowel sounds, soft to palpation,non-tender and non-distended Percussion: normal to percussion Rectal Exam: deferred Lab / Micro Data 06/03/25 15:51 06/02/25 05:27 Labs: Laboratory Results - last 24 hr 06/04/25 05:59: POC Glucose 104 06/04/25 16:25: POC Glucose 202 H Micro: Microbiology 06/03/25 Unknown Stool Stool Occult Blood (ERICA) - Final Occult Blood Positive Assessment & Plan Assessment/Plan (1) Anemia: PLAN: Plan Patient's hemoglobin went down to 7.8 and she received 1 unit packed red blood cells went up to 9.3. Since she needs to go on anticoagulation due to severe peripheral vascular disease and dual antiplatelet therapy. She should undergo an upper endoscopy evaluate upper GI tract. Please keep her n.p.o. past midnight. Charges/Coding Visit Charges Inpatient E&M: 57157 SNF Init L2 06/04/25 1806 <Electronically signed by Ortega Friend > Cosigner Signature (if applicable): CC: Dr. Rishi Vasquez DO~ Signed [facility] Work Phone: 1(441) 371-335107-17-2025 Progress note Author Evelin Rosado [facility] Note Date/Time June 04, 2025 3:59 pm [facility] Medical Records Department [address] [place] [address] Progress Note - Pharmacy 06/04/25 1430 MR#: [id number] Acct: [id number] Name: GELY FULLER Rep #:[id number] : 1950 75 From: Evelin Rosado PCP: Dr. Rishi Vasquez DO Status:AD M IN Location: TCU [id number] Documented by User: Evelin Rosado 06/04/25 15:06 TCU RX Drug Regimen Review Subjective/Objective Subjective/Objective Subjective: TCU Admission. 75 YOF presented to the ER with a fall. Hospitalized for fall, recent mrsa bacteremia, underwent left lower extremity revascularization 05/26/[address] Clement. Admitted to TCU with debility for strengthening and rehabilitation. Objective: Allergies Sulfa (Sulfonamide Antibiotics) Allergy (Verified 05/22/25 11:05) Unknown doesn't remember/ allergy noted as a child Current Medications Generic Name Dose Route Start Last Admin Trade Name Merlyn PRN Reason Stop Dose Admin Acetaminophen 1,000 mg 06/01/25 19:57 06/04/25 10:18 Acetaminophen 500 Mg Tablet PO 1,000 mg Q6H PRN PRN Administration Pain Score 1-3 Ascorbic Acid 1,000 mg 06/02/25 12:00 06/04/25 12:41 Ascorbic Acid 500 Mg Tablet PO 1,000 mg LUNCH HADLEY Administration Aspirin 81 mg 06/02/25 08:00 06/04/25 10:15 Aspirin 81 Mg Tab.Chew PO 81 mg BREAKFAST HADLEY Administration Atorvastatin Calcium 10 mg 06/01/25 22:00 06/03/25 21:13 Atorvastatin Calcium 10 Mg Tablet PO 10 mg QHS HADLEY Administration Calamine/Phenol 1 applic 06/01/25 22:00 06/04/25 10:15 Menthol/Lanolin/Calamine/Znox 113 Gm Tube TOPICAL 1 applic BID [facility] Administration Protocol Calcium Carbonate 500 mg 06/02/25 10:00 06/04/25 10:18 Calcium Carbonate 500 Mg Tablet PO 500 mg DAILY HADLEY Administration Clopidogrel Bisulfate 75 mg 06/02/25 10:00 06/04/25 10:16 Clopidogrel Bisulfate 75 Mg Tablet PO 75 mg DAILY HADLEY Administration Compound Med 2 click 06/01/25 22:00 06/04/25 10:16 Neuropathy Pain Cream Compound 60 Click Tube TOPICAL 2 click BID HADLEY Administration Protocol Ferrous Sulfate 325 mg 06/02/25 12:00 06/04/25 12:42 Ferrous Sulfate 325 Mg Tablet PO 325 mg DAILY@1200 HADLEY Administration Glimepiride 2 mg 06/02/25 08:00 06/04/25 10:15 Glimepiride 2 Mg Tablet PO 2 mg BIDCM HADLEY Administration Magnesium Citrate 300 ml 06/01/25 20:01 Magnesium Citrate 300 Ml PO DAILY PRN Constipation Metoprolol Succinate 6.25 mg 06/04/25 10:00 06/04/25 10:17 Metoprolol(Xl)Succ 25 Mg Tablet PO 6.25 mg DAILY HADLEY Administration Protocol Multivitamins 1 tablet 06/02/25 08:00 06/04/25 10:15 Multivitamins,Therapeutic Tablet PO 1 tablet DAILYCM HADLEY Administration Nystatin 1 applic 06/01/25 18:41 Nystatin Powder 15gm Bottle TOPICAL BID PRN rash Protocol [id number] Ethyl Esters 1 gm 06/02/25 10:00 06/04/25 10:16 [place]-3 Acid Ethyl Esters 1 Gm Capsule PO 1 gm DAILY HADLEY Administration Oxycodone HCl 5 mg 06/01/25 18:41 06/03/25 19:51 Oxycodone 5 Mg Tablet PO 5 mg Q4H PRN PRN Administration Pain Score 4-10 Pregabalin 100 mg 06/01/25 22:00 06/04/25 13:59 Pregabalin 50 Mg Capsule PO 100 mg TID HADLEY Administration Senna/Docusate Sodium 2 tablet 06/01/25 22:00 06/04/25 10:17 Senna/Docusate Sodium 1 Tablet PO 2 tablet BID HADLEY Administration Sodium Chloride 10 - 40 ml 06/02/25 04:50 06/02/25 10:41 0.9% Saline Lock 10 Ml Syringe IV 10 ml UD PRN Administration SALINE FLUSH Tuberculin PPD 0.1 ml 06/09/25 10:00 Tuberculin,Purif.Prot.Deriv. 50 Tu/Ml Vial ID 06/09/25 10:01 X1 ONE Problem List Other specified peripheral vascular diseases (Acute) Acute painful diabetic polyneuropathy (Acute) Acute osteomyelitis of left ankle (Acute) Bacteremia (Acute) Weakness (Acute) Essential (primary) hypertension (Acute) Type 2 diabetes mellitus with hyperglycemia (Acute) PAOD (peripheral arterial occlusive disease) (Acute) Debility (Acute) Hyperlipidemia (Chronic) Diabetes mellitus with polyneuropathy (Chronic) Vital Signs Temp Pulse Resp BP Pulse Ox O2 Del Method 98.8 F 54 L 18 102/39 L 99 Room Air 06/04/25 08:37 06/04/25 10:17 06/04/25 10:00 06/04/25 10:17 06/04/25 10:00 06/04/25 10:00 Oxygen Delivery Method Room Air Weight: 73.709 kg Body Mass Index (BMI) 26.2 Sodium 137 mmol/L (133-145) 06/02/25 05:27 Potassium 4.5 mmol/L (3.3-5.1) 06/02/25 05:27 Chloride 105 mmol/L (98-108) 06/02/25 05:27 Carbon Dioxide 21.2 mmol/L (21.0-32.0) 06/02/25 05:27 Anion Gap 11 (5-15) 06/02/25 05:27 BUN 76 mg/dL (4-19) H 06/02/25 05:27 Creatinine 1.22 mg/dL (0.70-1.20) H 06/02/25 05:27 Est GFR (MDRD) Non-Af 47 (>60) L 06/02/25 05:27 BUN/Creatinine Ratio 62.0 RATIO (10-20) H 06/02/25 05:27 Glucose 181 mg/dL (70-99) H 06/02/25 05:27 Assessment/Plan: 1. Pain: acetaminophen 1000mg PO Q6 PRN pain 1-3 (2 doses, pain scores 4 and 6 in the leg) and oxycodone 5mg PO Q4H PRN pain 4-10 (1 dose, pain score 6 in buttock). Please continue to monitor for increased pain, PRN usage, constipation, respiratory depression, LFTs and falls (Ian). 2. Bowel: senna/docusate 2T PO BID and magnesium citrate 300mL PO daily PRN constipation. No PRN doses given. Please continue to monitor for constipation and PRN usage. Last documented bowel movement was 06/03/25. 3. Hypertension: metoprolol succinate 6.25mg PO daily. Please continue to monitor BP (range 102/39 - 137/51), HR (range 53-67), fatigue. 4. POAD s/p LLE revascularization: aspirin 81mg PO breakfast and clopidogrel 75mg PO daily. Please continue to monitor for S/S of bleeding, hemoglobin (last 9.3g/dL), bruising. 5. Iron deficiency anemia: ascorbic acid 1000mg PO daily and ferrous sulfate 325mg PO daily. Please continue to monitor hemoglobin (last 9.3g/dL), dark stools, constipation and iron studies (last 03/13/25). 6. Hyperlipidemia: atorvastatin 10mg PO QHS and omega-3 1gm PO daily. Please continue to monitor lipid panel (last 03/13/25), LFT (last 06/01/25) and muscle pain. 7. Diabetic polyneuropathy: pregabalin 100mg PO TID and Neuropathy pain cream 2 clicks topical BID. Please continue to monitor for confusion, renal function, and falls/fractures (BEERs). 8. Diabetes Mellitus II: glimepiride 2mg PO BID. Please continue to monitor hemoglobin A1c (last 7.6% 05/18/25), glucose (range 104-265 mg/dL), S/S of hypoglycemia. 9. Indigestion: calcium carbonate 500mg PO daily. Please continue to monitor calcium (last 9mg/dL). 10. GI prophylaxis: lactobacillus 1C PO daily. Please continue to monitor for diarrhea. 11. Nutrition: multivitamin 1T PO daily. Please continue to monitor. 12. Skin irritation/Tinea Corporis: Nystatin topical bid and Calomseptine topical bid. Please continue to monitor. Assessment/Plan for indications treated with psychotropic medications: Resident is not prescribed scheduled or prn psychotropic medications at the time of this drug regimen review. Medical chart and medication regimen reviewed. The following medication irregularities or issues were identified: None Date Date of Note: 06/04/25 Documented by User: Dr. Phong Solomon MD 06/04/25 15:59 TCU RX Drug Regimen Review Provider Comments Provider responsibility Provider Comments to Recommendations by Pharmacy Agree 06/04/25 1506 <Electronically signed by Evelin Rosado> [facility] Signature (if applicable): 06/04/25 1559 <Electronically signed by Phong Solomon MD> CC: ~ Signed [facility] Work Phone: 1(243) 978-166307-17-2025 Consult note Author Kwaku Mendoza [facility] Note Date/Time June 04, 2025 1:48 pm [facility] Medical Records Department [address] [place] [address] Consultation - Infectious Dx 06/04/25 1345 MR#: [id number] Acct: [id number] Name: GELY FULLER Rep #:[id number] : 1950 75 From: Kwaku díaz MD PCP: Dr. Rishi Vasquez, DO Status:AD M IN Location: [place] [address]-1 Assessment & Plan Assessment/Plan (1) Acute osteomyelitis of left ankle: PLAN: Reviewed labs, imaging, path, and hospital records. Path was neg for osteo. Completed 2 weeks po linezolid and grafts doing well. With sulfa allergy and MRSA I to doxy, no good oral options for mcfp treatment. I think to continue with plan from prior ID Dr. Polk is reasonable at this point to monitor off of abx. Will follow, thank you HPI Consult Data Date of Consult: 06/04/25 HPI Narrative Reason for Consultation: (+) cx HPI Narrative: GELY FULLER, is a 75 F who was transferred to TCU. Had surgery 05/20/[address] Irene. Ankle bone cx with MRSA, actino, prevotella, and anaerobes. Path wasneg for osteo. Given 2 week course po linezolid. Per Dr. Irene today, grafts onBLE are stable with no sign of infection. She is feeling well, no fever, no n/v/d. Full ROS performed and neg except as noted above. [facility] Medical History Other specified peripheral vascular diseases Non-pressure chronic ulcer of other part of right foot with fat layer exposed 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 foot with fat layer exposed Type 2 diabetes mellitus with foot ulcer 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 History of MRSA infection Pressure ulcer Ambulates with cane Shortness of breath on exertion History of edema History of echocardiogram Fall Atherosclerosis of [place] artery of both lower extremities with gangrene [...] stage 3 Atherosclerosis of coronary artery of [place] heart without angina pectoris Hyperlipidemia Peripheral vascular [...] 81 mg PO QHS blood clots 01/13/14 05/31/25 20:15 History release multivitamin with folic acid 400 1 tab PO DAILY Supple ment 01/13/14 06/01/25 09:00 History mcg tablet omega-3 fatty acids-fish oil 340 1 ea PO DAILY supplem ent 06/29/16 08/27/16 History mg-1,000 mg capsule ferrous sulfate 325 mg (65 mg 325 mg PO DAILY SUPPLEME NT 08/15/18 06/01/25 12:50 History iron) tablet ascorbic acid (vitamin C) 500 mg 1,000 mg PO LUNCH Sup plement 11/25/20 06/01/25 12:50 History tablet calcium carbonate (Calcium 600) 600 mg PO DAILY supple ment 12/29/21 06/01/25 09:00 History clopidogrel 75 mg tablet 75 mg PO DAILY Blood clots # 90 tabs 10/23/24 06/01/25 09:00 Rx Lactobacillus acidophilus 600 mg PO QDAY gi 03/07/25 0 06/01/25 09:00 History (Acidophilus capsule) pregabalin 100 mg capsule 100 mg PO TID nerve pain 06/01/25 12:50 History simvastatin 20 mg tablet 20 mg PO QHS cholesterol #30 tabs 03/23/25 05/31/25 20:15 Rx nystatin 100,000 unit/gram topical 1 applic topical BI D PRN rash 05/07/25 Unknown History powder ([facility]) acetaminophen 650 mg 650 mg PO Q12H PRN pain 04/20 Unknown History tablet,extended release amlodipine 5 mg tablet 5 mg PO DAILY HTN #90 tabs 0 05/12/25 06/01/25 09:00 Rx metoprolol succinate 25 mg 12.5 mg (1/2 x 25 mg) PO DA NHI 05/12/25 06/01/25 09:00 Rx tablet,extended release 24 hr HEART RATE #45 tabs glimepiride 2 mg tablet 2 mg PO BID Diabetes 5 Unknown History gabapentin (bulk) 100 % powder 2 ea topical BID Pain # 0 grams 05/28/25 06/01/25 09:00 Rx linezolid 600 mg tablet 600 mg PO BID Antibiotic #21 tabs 05/28/25 Unknown Rx menthol 0.44 %-zinc oxide 20.6 % 1 applic topical BID Skin 05/28/25 Unknown Rx topical ointment (Calmoseptine) Irritation #0 grams oxycodone 5 mg tablet 5 mg PO Q4H PRN PRN Pain Sco re 05/28/25 05/30/25 Rx 4-10 #0 tabs Allergy/AdvReac Type Severity Reaction Status Date / Time Sulfa (Sulfonamide Allergy Unknown Verified 05/22/25 11:05 Antibiotics) Family History Father CAD (coronary artery [...] does not use caffeine: No Physical Exam Const alert, oriented x3 and no apparent distress General Appearance: cooperative HEENT normocephalic and head/scalp atraumatic Eyes PERRL and EOMs intact bilaterally Neck supple and No nodes Resp normal air movement and clear to auscultation bilaterally Cardio regular rate and regular rhythm GI soft to palpation, non-tender and non-distended Extremity General Extremity: Negative for edema Skin Skin Narrative: reviewed wound photos Neuro CN's II-XII intact bilaterally Lab / Micro Data Attestation: I reviewed the patient's lab results. 06/03/25 15:51 06/02/25 05:27 Labs: Laboratory Results - last 24 hr 06/03/25 15:51: Hgb 9.3 L, Hct 28.0 L 06/03/25 17:13: POC Glucose 187 H 06/04/25 05:59: POC Glucose 104 Micro: Microbiology 06/03/25 Unknown Stool Stool Occult Blood (ERICA) - Final Occult Blood Positive 06/04/25 1348 <Electronically signed by Kwaku Mendoza MD> Cosigner Signature (if applicable): CC: Dr. Rishi Vasquez, DO~ Signed [facility] Work Phone: [phone]) 728-791607-17-2025 Consult note Author Patel Irene [facility] Note Date/Time June 04, 2025 9:11 am [facility] Medical Records Department [address] [place] [address] Consultation 06/04/25730 MR#: [id number] Acct: [id number] Name: GELY FULLER Rep #:[id number] : 1950 75 From: Patel Abraham PM PCP: Dr. Rishi Vasquez DO Status:AD M IN Location: TCU [facility] Assessment & Plan Assessment/Plan (1) Acute osteomyelitis of left ankle: PLAN: Patient was examined and evaluated. All findings are discussed with the patient. All questions were answered to the patient satisfaction. Review of the microbiology culture and sensitivity taken on 05/20/2025 show evidence of MRSA growth. Will defer antibiotic treatment to infectious disease. Recommend infectious disease consultation with Dr. Lawrence. WBC: 3.8 HbA1c: 7.6 Glucose: 104 Medicine: On board, medical PT/OT: On board, rehab, strengthening Vascular: Consult pending From podiatry standpoint the patient's bilateral grafts are stable with no concern of infection. Will continue to have wound care nurse to change the dressing every other day to every 3 days as needed. Will plan to remove staplesand graft on 06/10/2025. Podiatry will continue to follow while the patient is TCU with weekly visits. If there is any questions or concerns please reach out to Dr. Irene. Thank you for the consultation. (2) Acute painful diabetic polyneuropathy: (3) Other specified peripheral vascular diseases: HPI Consult Data Date of Consult: 06/04/25 HPI Narrative Reason for Consultation: Osteomyelitis left ankle HPI Narrative: GELY FULLER, is a 75 F who presented to the hospital after presenting to the emergency room secondary to fall, recent MRSA bacteremia, underwent left lower extremity revascularization on 05/26/[address] Russell Clement admitted to the transitional care unit for rehabilitation, strengthening prior to discharge home. Patient has been working with PT and OT. Overall she is doing well afterher revascularization. Podiatry was consulted for concern of bone infection to the left ankle status post surgical intervention to the bilateral lower extremity with Integra graft application incision bone cortex of left ankle. DOS: 05/20/2025. Patient has been getting dressing changes by wound care nurse. She denies any pain to the right or left lower extremity. She denies any new onset of trauma. Denies constitutional symptoms. No other pedal complaints at this time. [facility] Medical History (Updated 06/04/25 @ 09:[address] Patel Irene, DPM) Other specified peripheral vascular diseases Non-pressure chronic ulcer of other part of right foot with fat layer exposed 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 foot with fat layer exposed Type 2 diabetes mellitus with foot ulcer 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 History of MRSA infection Pressure ulcer Ambulates with cane Shortness of breath on exertion History of edema History of echocardiogram Fall Atherosclerosis of [place] artery of both lower extremities with gangrene [...] stage 3 Atherosclerosis of coronary artery of [place] heart without angina pectoris Hyperlipidemia Peripheral vascular [...] 81 mg PO QHS blood clots 01/13/14 05/31/25 20:15 History release multivitamin with folic acid 400 1 tab PO DAILY Supple ment 01/13/14 06/01/25 09:00 History mcg tablet omega-3 fatty acids-fish oil 340 1 ea PO DAILY supplem ent 06/29/16 08/27/16 History mg-1,000 mg capsule ferrous sulfate 325 mg (65 mg 325 mg PO DAILY SUPPLEME NT 08/15/18 06/01/25 12:50 History iron) tablet ascorbic acid (vitamin C) 500 mg 1,000 mg PO LUNCH Sup plement 11/25/20 06/01/25 12:50 History tablet calcium carbonate (Calcium 600) 600 mg PO DAILY supple ment 12/29/21 06/01/25 09:00 History clopidogrel 75 mg tablet 75 mg PO DAILY Blood clots # 90 tabs 10/23/24 06/01/25 09:00 Rx Lactobacillus acidophilus 600 mg PO QDAY gi 03/07/25 0 06/01/25 09:00 History (Acidophilus capsule) pregabalin 100 mg capsule 100 mg PO TID nerve pain 06/01/25 12:50 History simvastatin 20 mg tablet 20 mg PO QHS cholesterol #30 tabs 03/23/25 05/31/25 20:15 Rx nystatin 100,000 unit/gram topical 1 applic topical BI D PRN rash 05/07/25 Unknown History powder (Nyamyc) acetaminophen 650 mg 650 mg PO Q12H PRN pain 04/20 Unknown History tablet,extended release amlodipine 5 mg tablet 5 mg PO DAILY HTN #90 tabs 0 05/12/25 06/01/25 09:00 Rx metoprolol succinate 25 mg 12.5 mg (1/2 x 25 mg) PO DA NHI 05/12/25 06/01/25 09:00 Rx tablet,extended release 24 hr HEART RATE #45 tabs glimepiride 2 mg tablet 2 mg PO BID Diabetes 5 Unknown History gabapentin (bulk) 100 % powder 2 ea topical BID Pain # 0 grams 05/28/25 06/01/25 09:00 Rx linezolid 600 mg tablet 600 mg PO BID Antibiotic #21 tabs 05/28/25 Unknown Rx menthol 0.44 %-zinc oxide 20.6 % 1 applic topical BID Skin 05/28/25 Unknown Rx topical ointment (Calmoseptine) Irritation #0 grams oxycodone 5 mg tablet 5 mg PO Q4H PRN PRN Pain Sco re 05/28/25 05/30/25 Rx 4-10 #0 tabs Allergy/AdvReac Type Severity Reaction Status Date / Time Sulfa (Sulfonamide Allergy Unknown Verified 05/22/25 11:05 Antibiotics) Family History Father CAD (coronary artery [...] not use caffeine: No Physical Exam Narrative Neurovascular status unchanged. Evidence of Integra bilayer graft secured with jacob to the by the lower extremity. No erythema or proximal streaking is appreciated. Skin temp gradient warm to warm from proximal ankles to distal digit bilateral. No pain to palpation to any of the skin grafts and vital extremity. No pain with calf raise. Lab / Micro Data 06/03/25 15:51 06/02/25 05:27 Labs: Laboratory Results - last 24 hr 06/03/25 15:51: Hgb 9.3 L, Hct 28.0 L 06/03/25 17:13: POC Glucose 187 H 06/04/25 05:59: POC Glucose 104 Micro: Microbiology 06/03/25 Unknown Stool Stool Occult Blood (ERICA) - Final Occult Blood Positive 06/04/25 0911 <Electronically signed by Patel Irene DPM> Cosigner Signature (if applicable): CC: Dr. Rishi Vasquez, DO~ Signed [facility] Work Phone: [phone] 156-473107-16-2025 History and physical note Author Phong Solomon [facility] Note Date/Time June 03, 2025 7:34 am [facility] Medical Records Department [address] [place] [address] History & Physical Exam 06/01/251940 MR#: [id number] Acct: [id number] Name: GELY FULLER Rep #:[id number] : 1950 75 From: Phong Solomon MD PCP: Dr. Rishi Vasquez, DO Status:AD M IN Location: TCU [facility]-1 HPI - General General Date of Admission: 06/01/25 Date of Service: 06/02/25 Chief Complaint: Here for rehabilitation. HPI Narrative GELY FULLER, is a 75 Female who presents with followin05/22/2025 [facility] ED fall. Slid out of chair, fell, sat for a while. Unable to get up, EMS called, recent foot surgery 05/20/2025. Lives alone, unsafe to go home. 05/22/2025 Admit [facility]. PT/OT/CM for SNF. Continue Linezolid for MRSA foot wound. 05/23/2025 PT/OT SNF. Linezolid for MRSA bacteremia. 05/24/2025 Slept well, having bowel movements, no pain. PT/OT SNF. Linezolid for MRSA bacteremia, blood cultures negative 48 hours. 05/25/2025 No acute events overnight, neck pain. PT/OT/CM SNF. 05/26/2025 Dr. Clement performed left femoral endarterectomy, left fem-peroneal bypass with reversed GSV, cadaver, left sartorius flap. 05/27/2025 Indwelling gonzalez, urinalysis c/w urinary tract infection, Rocephin iv, urine culture pending. Bilateral lower extremity pain. PT/OT TCU. Discontinue Gonzalez in 24 hours. Aspirin, Plavix, stop Heparin for paod s/p revascularization. 05/28/2025 No acute events overnight, Hemoglobin 7.3, Transfuse 1 unit PRBC. Left calf pain, wound VAC in place. Plan TCU on discharge. 05/29/2025 No acute events overnight, plan TCU. UTI ruled out, Rocephin stopped, Gonzalez removed. 05/30/2025 No acute events overnight. Discharge to TCU. 05/31/2025 Pre-CERT TCU. 06/01/2025 Admit to TCU with debility, here for rehabilitation, strengthening, prior to discharge home alone. [facility] Medical History Non-pressure chronic ulcer of other part of right foot with fat layer exposed 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 foot with fat layer exposed Type 2 diabetes mellitus with foot ulcer 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 Other specified peripheral vascular diseases History of MRSA infection Pressure ulcer Ambulates with cane Shortness of breath on exertion History of edema History of echocardiogram Fall Atherosclerosis of [place] artery of both lower extremities with gangrene [...] stage 3 Atherosclerosis of coronary artery of [place] heart without angina pectoris Hyperlipidemia Peripheral vascular [...] 81 mg PO QHS blood clots 01/13/14 05/31/25 20:15 History release multivitamin with folic acid 400 1 tab PO DAILY Supple ment 01/13/14 06/01/25 09:00 History mcg tablet omega-3 fatty acids-fish oil 340 1 ea PO DAILY supplem ent 06/29/16 08/27/16 History mg-1,000 mg capsule ferrous sulfate 325 mg (65 mg 325 mg PO DAILY SUPPLEME NT 08/15/18 06/01/25 12:50 History iron) tablet ascorbic acid (vitamin C) 500 mg 1,000 mg PO LUNCH Sup plement 11/25/20 06/01/25 12:50 History tablet calcium carbonate (Calcium 600) 600 mg PO DAILY supple ment 12/29/21 06/01/25 09:00 History clopidogrel 75 mg tablet 75 mg PO DAILY Blood clots # 90 tabs 10/23/24 06/01/25 09:00 Rx Lactobacillus acidophilus 600 mg PO QDAY gi 03/07/25 0 06/01/25 09:00 History (Acidophilus capsule) pregabalin 100 mg capsule 100 mg PO TID nerve pain 06/01/25 12:50 History simvastatin 20 mg tablet 20 mg PO QHS cholesterol #30 tabs 03/23/25 05/31/25 20:15 Rx nystatin 100,000 unit/gram topical 1 applic topical BI D PRN rash 05/07/25 Unknown History powder (Nyamyc) acetaminophen 650 mg 650 mg PO Q12H PRN pain 04/20 Unknown History tablet,extended release amlodipine 5 mg tablet 5 mg PO DAILY HTN #90 tabs 0 05/12/25 06/01/25 09:00 Rx metoprolol succinate 25 mg 12.5 mg (1/2 x 25 mg) PO DA NHI 05/12/25 06/01/25 09:00 Rx tablet,extended release 24 hr HEART RATE #45 tabs glimepiride 2 mg tablet 2 mg PO BID Diabetes 5 Unknown History gabapentin (bulk) 100 % powder 2 ea topical BID Pain # 0 grams 05/28/25 06/01/25 09:00 Rx linezolid 600 mg tablet 600 mg PO BID Antibiotic #21 tabs 05/28/25 Unknown Rx menthol 0.44 %-zinc oxide 20.6 % 1 applic topical BID Skin 05/28/25 Unknown Rx topical ointment (Calmoseptine) Irritation #0 grams oxycodone 5 mg tablet 5 mg PO Q4H PRN PRN Pain Sco re 05/28/25 05/30/25 Rx 4-10 #0 tabs Allergy/AdvReac Type Severity Reaction Status Date / Time Sulfa (Sulfonamide Allergy Unknown Verified 05/22/25 11:05 Antibiotics) Family History Father CAD (coronary artery [...] not use caffeine: No ROS Constitutional Constitutional: Denies chills, fever(s) or weight gain ENT HEENT: Denies headache(s), nasal congestion or nasal discharge Cardiovascular Cardiovascular: Denies chest pain or palpitations Respiratory/Chest Respiratory/Chest: Denies cough, excessive phlegm production or shortness of breath with exertion Gastrointestinal Gastrointestinal: Denies abdominal pain, nausea or vomiting Genitourinary Genitourinary: Denies dysuria Musculoskeletal Musculoskeletal: Denies joint pain or joint swelling Integumentary Integumentary: Denies rash or wounds Neurologic Neurologic: Denies focal weakness, numbness or tingling Psychiatric Psychiatric: Denies anxiety, auditory hallucinations, depression, homicidal ideation or suicidal ideation Vital Signs Vital Signs Vital Signs: Weight Weight: 73.391 kg Body Mass Index (BMI) 26.1 Physical Exam Const alert General Appearance: cooperative HEENT normocephalic Eyes PERRL and EOMs intact bilaterally Neck supple, no JVD and no carotid bruits Resp normal respiratory effort, normal air movement and clear to auscultation bilaterally Cardio regular rate and regular rhythm GI normal to inspection, nondistended, normoactive bowel sounds, non-tender and non-distended Extremity normal capillary refill Extremity Narrative: Left lower extremity dressed, boot. General Extremity: Negative for edema Skin no rashes or lesions noted General Skin Exam: no breakdown Psych affect normal Appearance: appropriate Results Lab / Micro Data 06/02/25 05:27 06/02/25 05:27 Assessment & Plan Assessment/Plan (1) Debility: (2) Weakness: (3) Bacteremia: (4) PAOD (peripheral arterial occlusive disease): (5) Essential (primary) hypertension: (6) Hyperlipidemia: QUALIFIERS: Hyperlipidemia type: unspecified Qualified Code(s): E78.5 - Hyperlipidemia, unspecified (7) Type 2 diabetes mellitus with hyperglycemia: (8) Diabetes mellitus with polyneuropathy: QUALIFIERS: Diabetes mellitus type: type 2 Qualified Code(s): E11.42 - Type 2 diabetes mellitus with diabetic polyneuropathy PLAN: Plan 75 year old female with below past medical history hospitalized for fall, recentmrsa bacteremia, underwent left lower extremity revascularization 05/26/[address] Clement, admitted to TCU with debility, here for rehabilitation, strengthening, prior to discharge home alone. * Debility - PT/OT. * Pain - Tylenol 1000mg q6 prn pain (1-3), Oxycodone 5mg q4 prn pain (4-10). * Bowel - senna/colace 2 tablets bid, Magnesium citrate 300mL daily prn. * Adult immunization - Administer pneumonia vaccine, covid vaccine, flu vaccine as appropriate. * DVT prophylaxis - Hold, on DAPT. * Hypertension - Metoprolol succinate 12.5mg daily, Amlodipine 5mg daily. * Iron deficiency anemia - Vitamin C 1000mg daily, Ferrous sulfate 325mg daily. * PAOD s/p left lower extremity revascularization - Aspirin 81mg daily, Plavix 75mg daily. * Hyperlipidemia - Atorvastatin 10ng qhs, [place] 3 1 gram daily. * Indigestion - TUMS 500mg daily. * Diabetes Mellitus II - Glimepiride 2mg bid. * GI prophylaxis - Lactobacillus 1 capsule daily. * Skin irritation - Calomseptine topical bid. * Nutrition - MVI 1 tablet daily. * Diabetic polyneuropathy - Lyrica 100mg tid, Neuropathy pain cream 2 clicks topical bid. * Tinea Corporis - Nystatin topical bid. * Postoperative anemia - check stool for blood, transfuse 1 unit prbc. 06/02/25 0737 <Electronically signed by Phong Solomon MD> Cosigner Signature (if applicable): CC: Dr. Rishi Vasquez DO; Dr. Phong Solomon MD~ Signed ADDENDUM by Dr. Phong Solomon MD on 06/03/25 at 0734 Addendum I left for Gely's brother Vlad regarding right shoulder pain, X-ray showeddegenerative changes, schedule [facility] appointment for right shoulder pain/right rotator cuff. 06/03/25 0734<Electronically signed by Phong Solomon MD> Cosigner Signature (if applicable): cc: Dr. Rishi Vasquez DO; Dr. Phong Solomon MD ~* Signed [facility] Work Phone: 1(356) 753-217507-15-2025 Radiology Diagnostic study [facility]07-14-2025 Discharge summary Author Christos Morrow [facility] Note Date/Time June 01, 2025 2:34 pm [facility] Medical Records Department [address] [place] [address] Transfer to [facility] MR#: [id number] Acct: [id number] Name: GELY FULLER Rep #:[id number] : 1950 75 From: Christos Morrow MD PCP: Dr. Rishi Vasquez DO Status:AD M IN Certification of patient admission REQUIRED AT TIME OF ADMISSION. I CERTIFY THAT POST-HOSPITAL ECF SERVICES ARE REQUIRED TO BE GIVEN ON AN IN-PATIENT BASIS BECAUSE OF THE ABOVE NAMED PATIENT'S NEED FOR LONG TERM CARE ON A CONTINUING BASIS FOR THE CONDITION(S) FOR WHICH HE/SHE WAS RECEIVING IN-PATIENT HOSPITAL SERVICES PRIOR TO HIS/HER TRANSFER TO THE [facility]. 06/01/25 1434<Electronically signed by Christos Morrow MD> Diet Diet Order/Speech Therapy: INPATIENT Hospital Diet / Speech Therapy Order(s) 05/30/25 10:01 ADA [Diet: Cardiac: Calorie-Controlled] Dietary Modifications:: Consistent Carbohydrate Type of Dietary Supplement:: Davion Diet Comments: davion with breakfast and dinner; 120ml gee glucerna shake with lunch How many daily calories?: 1800 calorie Routine Orders/Code Status Enema Frequency: Daily PRN Routine Lab Work: - (Repeat CBC, BMP in 1 week.) Code Status: Full Code DC O2, CPAP, BIPAP needs Home O2 Discharge instructions: No Wound(s) left leg: Wound Type: Neuropathic/Diabetic Foot Ulcer right foot: Wound Type: Neuropathic/Diabetic Foot Ulcer LT groin: Wound Type: Surgical Incision Dressing Change: Prevena VAC in place right heel: Wound Type: Neuropathic/Diabetic Foot Ulcer Dressing Change: Adpatic left posterior lower leg: Wound Type: Stasis Ulcer Dressing Change: Adaptic left heel: Wound Type: Neuropathic/Diabetic Foot Ulcer Dressing Change: Adaptic left medial ankle: Wound Type: Neuropathic/Diabetic Foot Ulcer Dressing Change: Adaptic left lateral foot: Wound Type: Neuropathic/Diabetic Foot Ulcer Dressing Change: Adaptic left medial lower leg: Wound Type: Surgical Incision Dressing Change: dry dressing Buttocks: Wound Type: Pressure Injury cleft: Wound Type: moisture associated skin damage Suggestions for Active Care Change Position every (hours): 2 Hours to sit in a chair: 6 Times a day to sit in chair: 3 Therapies Physical Therapy: Eval and Treat Occupational Therapy: Eval and Treat Problem/Diagnosis (1) Acute osteomyelitis of left foot: Status: Acute Code(s): M86.172 - Other acute osteomyelitis, left ankle and foot Plan Patient is a 75-year-old lady with past medical history signal for PAD with previous angioplasty, diabetes mellitus type 2,Recent debridement of surgical debridement of chronic bilateral lower extremity DFU's admitted with progressivegeneralized weakness 1. Physical deconditioning/debility ? Requested for PT OT eval and social services technician to assist with discharge planning 2. Bilateral lower extremity ulcerations and wounds in setting of severe peripheral vascular disease and diabetes ? Had skin grafting done with podiatry on 05/20. 3. Severe peripheral arterial disease ? Patient was seen in consultation by Dr. Russell Ibanez with vascular surgery who didperfprm Left femoral endarterectomy left fem-peroneal bypass with reversed GSV, cadaver left sartorius flap on 05/26/2025 4. Anemia ? Secondary to chronic disorder as well as acute blood loss anemia following surgery monitoring H&H and transfuse if patient becomes symptomatic or hemoglobin falls below 7. Patient was transfused with 2 unit PRBC 5. Chronic kidney disease stage III ? Kidney function at baseline 6. Diabetes mellitus type II -patient's oral hypoglycemics held. Placed on long acting insulin, Accu-Cheks a.c. and at bedtime and covered with sliding scale insulin 7. Dyslipidemia ?Patient is on statin therapy, continued at home dose 8. Diabetic polyneuropathy ? Patient is on pregabalin 9. DVT prophylaxis ? Subcu heparin Allergies/Procedures Done in Hospital Allergies Sulfa (Sulfonamide Antibiotics) Allergy (Verified 05/22/25 11:05) Unknown doesn't remember/ allergy noted as a child Procedures: EKG and - (05/26/25 left femoral endarterectomy left fem-peroneal bypass with reversed GSV, cadaver left sartorius flap per Dr. Clement.) Type of Care/Length of Stay Estimated LOS: Convalescent Care Less Than 30 days Type of Care Needed: Skilled Rehab Potential: Good Prognosis: Good Additional Orders/Day of Discharge Day of Discharge: 05/29/25 Dietary and Speech Recommendations Dietitian Recommendations/Changes: Adjust to cardiac; consistent carbohdyrate diet. Continue davion with breakfast and dinner. Will order 120ml chocolate glucerna shake with lunch. Will monitor weigh trends. Discharge Plan Admission Admit Date/Time: 05/25/25 11:46 Primary Reason for Your Visit: Adult FTT, BL LE Diabetic wounds (recent MRSA infected wound), PAD Attending Provider: Christos Morrow Primary Care Provider: Rishi Vasquez Consulting Providers: Wilberto Suazo; Michaela oJshua; Patel Irene; Russell Clement; Maddie Merchant Instructions Additional Instructions / Restrictions: PODIATRY BILATERAL LOWER EXTREMITY CARE DISCHARGE AND FOLLOW-UP INSTRUCTIONS: --Dressing change orders to the bilateral extremity: 1. Remove all dressing down to the amniotic skin graft and leave the skin graftintact with jacob. 2. Cover the skin graft with Adaptic, 4 x 4's, light Kerlix wrap, underlying cast padding and Buzz wrap's with 20% compression from sulcus of toes to the mid calf to the bilateral lower extremity. 3. Please change bilateral lower extremity dressing every 3 days. 4. Please offload left lower extremity with Multi-Podus boot. --Weightbearing status: Patient can be weightbearing as tolerated in surgical shoes and walker --Please follow-up with Dr. Irnee in private office in 7 to 10 days post- discharge. VASCULAR SURGERY DISCHARGE AND FOLLOW-UP INSTRUCTIONS: --For L groin incision site, Prevena vacuum dressing is to remain in place for 7days postoperatively (removal date 06/02) as long as it maintains good seal. If it is alarming, loses seal, or otherwise malfunctions then OK to remove sooner as needed. The incision itself is closed with dermabond and Prineo tape which will continue to protect the incision and will peel/flake away on its own with time. For the L lower leg incision, this is also closed with dermabond. OK for both to be open to air as long as there is no drainage. If there is drainage noted, then would apply dry gauze dressings and change daily. From vascular surgical perspective, OK for showers and soap/water can rinse over the incision sites but defer to podiatry regarding bathing restrictions. --With respect to activity, she is not to lift >20 lbs for 3 weeks but otherwisecan proceed with activity as tolerated. --Please continue ASA 81mg daily and Plavix 75mg daily. --Please follow-up in vascular surgery office in 2 weeks. Discharge Orders/Prescriptions Prescriptions: New menthol-zinc oxide [Calmoseptine] 0.44-20.6 % Ointment 1 applic topical BID Qty: 0 0RF Protocol: *Topical Application Instructions APPLICATION INSTRUCTIONS: groin gabapentin (bulk) 100 % Powder 2 ea topical BID Qty: 0 0RF oxycodone 5 mg Tablet 5 mg PO Q4H PRN PRN (Reason: Pain Score 4-10) Qty: 0 0RF Continued calcium carbonate [Calcium 600] 600 [...] 325 MG tablet 325 mg PO DAILY linezolid 600 mg Tablet 600 mg PO BID Qty: 21 0RF Rx Instructions: STOP DATE 06/01/25 AFTER AM DOSE. pregabalin 100 mg capsule 100 mg PO [...] 12.5 mg PO DAILY Qty: 45 3RF Discontinued Santyl 250 unit/gram Ointment 1 applic topical DAILY Qty: 15 0RF Protocol: *Topical Application Instructions APPLICATION INSTRUCTIONS: apply nickel thick layer to left posterior lower leg, left medial ankle, and left heel Rx Instructions: Apply to wound as instructed Referrals / Follow Up: Russell Clement MD [Med Staff - Active Staff] - (Follow-up with Vascular surgery in 2 weeks.) Rishi Vasquez DO [Primary Care Provider] - (Follow-up within 1-2 days of SNFdischarge.) Patel Irene DPM [Med Staff - Active Staff] - See Referral Note (Patient is a follow-up in private office 7 to 10 days post hospital discharge.) Disposition Disposition (needs filled in before D/C Order can be placed): Assisted Facility 06/01/25 1434 <Electronically signed by Christos Morrow MD> Cosigner Signature (if applicable): CC: DPAlexandria Irene; Dr. Wilberto Suazo DO; Dr. Maddie Merchant MD; Dr. Russell Clement MD; Dr. Rishi Vasquez DO; Dr. Michaela Joshua DO ~ [facility] Work Phone: [phone]) [phone] Discharge summary Author Christos [facility] Note Date/Time June 01, 2025 2:32 pm [facility] Medical Records Department [address] [place] [address] Discharge Summary 06/01/25 1424 MR#: [id number] Acct: [id number] Name: GELY FULLER Rep #:[id number] : 1950 75 From: Christos Morrow MD PCP: Dr. Rishi Vasquez DO Status:AD M IN Location: [facility] [id number] Providers Date of Admission: 05/25/25 Primary Care Physician: Dr. Rishi Vasquez DO Consultations 05/23/25 09:23 Consult: Podiatry Routine Consulting Provider: Patel Irene Reason for Consult: wounds EMERGENT Consult: No MD Notified: Yes Date Notified: 05/23/25 Time Notified: 09:24 Method of Notification: phone 05/24/25 09:54 Consult: Vascular Surgery Routine Consulting Provider: Russell Clement Reason for Consult: PVD EMERGENT Consult: No MD Notified: Yes Date Notified: 05/24/25 Time Notified: 09:55 Method of Notification: Verbal 05/29/25 06:37 Consult: Onc/Wound/box bender Routine Comment: Reason for Consult:: bilateral feet, coccyx Reason For Visit: GENERALIZED WEAKNESS Diagnosis Discharge Diagnosis (1) Acute osteomyelitis of left foot: Status: Acute Code(s): M86.172 - Other acute osteomyelitis, left ankle and foot Plan Patient is a 75-year-old lady with past medical history signal for PAD with previous angioplasty, diabetes mellitus type 2,Recent debridement of surgical debridement of chronic bilateral lower extremity DFU's admitted with progressivegeneralized weakness 1. Physical deconditioning/debility ? Requested for PT OT eval and social services technician to assist with discharge planning 2. Bilateral lower extremity ulcerations and wounds in setting of severe peripheral vascular disease and diabetes ? Had skin grafting done with podiatry on 05/20. 3. Severe peripheral arterial disease ? Patient was seen in consultation by Dr. Russell Ibanez with vascular surgery who didperfprm Left femoral endarterectomy left fem-peroneal bypass with reversed GSV, cadaver left sartorius flap on 05/26/2025 4. Anemia ? Secondary to chronic disorder as well as acute blood loss anemia following surgery monitoring H&H and transfuse if patient becomes symptomatic or hemoglobin falls below 7. Patient was transfused with 2 unit PRBC 5. Chronic kidney disease stage III ? Kidney function at baseline 6. Diabetes mellitus type II -patient's oral hypoglycemics held. Placed on long acting insulin, Accu-Cheks a.c. and at bedtime and covered with sliding scale insulin 7. Dyslipidemia ?Patient is on statin therapy, continued at home dose 8. Diabetic polyneuropathy ? Patient is on pregabalin 9. DVT prophylaxis ? Subcu heparin Medications at Discharge Home Medications aspirin 81 [...] mg tablet 2 mg PO BID 05/18/25 gabapentin (bulk) 100 % powder 2 ea topical BID #0 grams 05/28/25 linezolid 600 mg tablet 600 mg PO BID #21 tabs 05/28/25 menthol 0.44 %-zinc oxide 20.6 % topical ointment (Calmoseptine) 1 applic topical BID #0 grams 05/28/25 oxycodone 5 mg tablet 5 mg PO Q4H PRN PRN Pain Score 4-10 #0 tabs 05/28/25 Hospital Course Summary of Care Provided Minutes Spent on Discharge: 35 Physical Exam Narrative GENERAL: cooperative HEENT: Atraumatic; normocephalic EYES; Anicteric, Normal Conjunctiva NECK; supple, normal thyroid, RESPIRATORY: Diminished to auscultation CARDIOVASCULAR: Regular S1 S2, GI: soft, normoactive bowel sounds, : No Renal angle tenderness; EXTREMITIES: No lower extremity send surgical dressing MUSCULOSKELETAL: no muscle wasting NEURO: Awake; no lateralizing signs. SKIN: No Rash PSYCH; Flat affect Weight / BMI Weight Weight: 74.8 kg Body Mass Index (BMI) 26.4 ABG / Lab / Microbiology Data 06/01/25 10:07 06/01/25 10:07 Laboratory: Laboratory Results - last 24 hr 05/31/25 16:55: POC Glucose 261 H 05/31/25 19:58: POC Glucose 204 H 06/01/25 05:16: POC Glucose 119 H 06/01/25 10:07: WBC 6.1, RBC 3.08 L, Hgb 9.0 L, Hct 27.9 L, MCV 90.6, MCH 29.2, MCHC 32.3, RDW Std Deviation 49.8 H, RDW Coeff of Jorgito 15.1 H, Plt Count 155, MPV10.5, Sodium 138, Potassium 4.6, Chloride 105, Carbon Dioxide 21.5, Anion Gap 12, BUN 69 H, Creatinine 1.22 H, Estim Creat Clear Calc 42.47 L, Est GFR (MDRD) Non-Af 47 L, BUN/Creatinine Ratio 56.9 H, Glucose 208 H, Calcium 9.4, Phosphorus3.5, Magnesium 1.8, Total Bilirubin 0.59, AST 20, ALT 15, Alkaline Phosphatase 57, Total Protein 5.7 L, Albumin 2.7 L, Globulin 3.0, Albumin/Globulin Ratio 0.9 06/01/25 11:43: POC Glucose 268 H Microbiology: Microbiology 05/26/25 15:52 Urine Catheter - Catheter Urine Culture - Final Presumptive C albicans D/C Instructions DC O2, CPAP, BIPAP Needs Home O2 Discharge instructions: No Meaningful Use Info Meaningful Use Meaningful Use Diagnoses (Choose all that apply): None applicable Discharge Plan Admission Admit Date/Time: 05/25/25 11:46 Primary Reason for Your Visit: Adult FTT, BL LE Diabetic wounds (recent MRSA infected wound), PAD Attending Provider: Christos Morrow Primary Care Provider: Rishi Vasquez Consulting Providers: Wilberto Suazo; Michaela Joshua; Patel Irene; Russell Clement; Maddie Merchant Instructions Additional Instructions / Restrictions: PODIATRY BILATERAL LOWER EXTREMITY CARE DISCHARGE AND FOLLOW-UP INSTRUCTIONS: --Dressing change orders to the bilateral extremity: 1. Remove all dressing down to the amniotic skin graft and leave the skin graftintact with jacob. 2. Cover the skin graft with Adaptic, 4 x 4's, light Kerlix wrap, underlying cast padding and Buzz wrap's with 20% compression from sulcus of toes to the mid calf to the bilateral lower extremity. 3. Please change bilateral lower extremity dressing every 3 days. 4. Please offload left lower extremity with Multi-Podus boot. --Weightbearing status: Patient can be weightbearing as tolerated in surgical shoes and walker --Please follow-up with Dr. Irene in private office in 7 to 10 days post- discharge. VASCULAR SURGERY DISCHARGE AND FOLLOW-UP INSTRUCTIONS: --For L groin incision site, Prevena vacuum dressing is to remain in place for 7days postoperatively (removal date 06/02) as long as it maintains good seal. If it is alarming, loses seal, or otherwise malfunctions then OK to remove sooner as needed. The incision itself is closed with dermabond and Prineo tape which will continue to protect the incision and will peel/flake away on its own with time. For the L lower leg incision, this is also closed with dermabond. OK for both to be open to air as long as there is no drainage. If there is drainage noted, then would apply dry gauze dressings and change daily. From vascular surgical perspective, OK for showers and soap/water can rinse over the incision sites but defer to podiatry regarding bathing restrictions. --With respect to activity, she is not to lift >20 lbs for 3 weeks but otherwisecan proceed with activity as tolerated. --Please continue ASA 81mg daily and Plavix 75mg daily. --Please follow-up in vascular surgery office in 2 weeks. Discharge Orders/Prescriptions Prescriptions: New menthol-zinc oxide [Calmoseptine] 0.44-20.6 % Ointment 1 applic topical BID Qty: 0 0RF Protocol: *Topical Application Instructions APPLICATION INSTRUCTIONS: groin gabapentin (bulk) 100 % Powder 2 ea topical BID Qty: 0 0RF oxycodone 5 mg Tablet 5 mg PO Q4H PRN PRN (Reason: Pain Score 4-10) Qty: 0 0RF Continued calcium carbonate [Calcium 600] 600 [...] 325 MG tablet 325 mg PO DAILY linezolid 600 mg Tablet 600 mg PO BID Qty: 21 0RF Rx Instructions: STOP DATE 06/01/25 AFTER AM DOSE. pregabalin 100 mg capsule 100 mg PO [...] 12.5 mg PO DAILY Qty: 45 3RF Discontinued Santyl 250 unit/gram Ointment 1 applic topical DAILY Qty: 15 0RF Protocol: *Topical Application Instructions APPLICATION INSTRUCTIONS: apply nickel thick layer to left posterior lower leg, left medial ankle, and left heel Rx Instructions: Apply to wound as instructed Referrals / Follow Up: Russell Clement MD [Med Staff - Active Staff] - (Follow-up with Vascular surgery in 2 weeks.) Rishi Vasquez DO [Primary Care Provider] - (Follow-up within 1-2 days of SNFdischarge.) Patel Irene DPM [Med Staff - Active Staff] - See Referral Note (Patient is a follow-up in private office 7 to 10 days post hospital discharge.) Disposition Disposition (needs filled in before D/C Order can be placed): Assisted Facility Charges/Coding Visit Charges Inpatient E&M: 05430 Disch Hosp >30min 06/01/25 1432 <Electronically signed by Christos Morrow MD> Cosigner Signature (if applicable): CC: Dr. Christos Morrow MD; Dr. Rishi Vasquez DO~ Signed [facility] Work Phone: 1(227) 283-113407-14-2025 Progress note Author Abena Fiore [facility] Note Date/Time June 01, 2025 11:4 2am [facility] Medical Records Department [address] [place] [address] Progress Note - Surgery 05/29/251649 MR#: [id number] Acct: [id number] Name: GELY FULLER Rep #:[id number] : 1950 75 From: Abena VYAS PCP: Dr. Rishi Vasquez, DO Status:AD M IN Location: [facility] [place] FA044-4 Subjective Subjective I saw Gely sitting up in the bedside chair this afternoon. She reports to feeling well overall, she has some pain at the incision sites in the groin and the calf. She has no other complaints. She states she walked to the restroom andfelt that she did better with that today compared to yesterday. Objective Data Objective Data Vital Signs: Vital Signs Temp Pulse Resp BP Pulse Ox O2 Del Method O2 Flow Rate 98.2 F 73 16 112/57 L 95 Room Air 2 05/29/25 14:00 05/29/25 14:00 05/29/25 14:00 05/29/25 14:00 05/29/25 14:00 05/29/25 14:00 05/28/25 11:58 Oxygen Flow Rate (L/min) 2 Oxygen Delivery Method Room Air Weight: 159 lb 6.307 oz Body Mass Index (BMI) 25.6 Intake & Output: Intake and Output for Last 24 Hours 05/27/25 05/28/25 05/29/25 23:59 23:59 23:59 Intake Total 377.34 / 377.34 868.17 / 1018.17 550 / 550 Output Total 950 / 1200 800 / 800 300 / 300 Balance -572.66 / -822.66 68.17 / 218.17 250 / 250 Lab / Micro Data 05/29/25 05:15 05/29/25 05:15 Labs: Laboratory Results - last 24 hr 05/28/25 21:43: POC Glucose 273 H 05/29/25 05:15: WBC 9.1, RBC 2.87 L, Hgb 8.4 L, Hct 25.9 L, MCV 90.2, MCH 29.3, MCHC 32.4, RDW Std Deviation 52.9 H, RDW Coeff of Jorgito 16.0 H, Plt Count 163, MPV9.8, Immature Gran % (Auto) 1.700 H, Neut % (Auto) 80.6 H, Lymph % (Auto) 11.7 L, Lea % (Auto) 4.3, Eos % (Auto) 1.3, Baso % (Auto) 0.4, Absolute Neuts (auto) 7.3, Absolute Lymphs (auto) 1.06, Nucleated RBC % 0.2, Sodium 136, Potassium 4.6, Chloride 106, Carbon Dioxide 20.3 L, Anion Gap 9, BUN 52 H, Creatinine 1.19, Estim Creat Clear Calc 42.87 L, Est GFR (MDRD) Non-Af 48 L, BUN/CreatinineRatio 43.9 H, Glucose 197 H, Calcium 8.9, Total Bilirubin 0.42, AST 29, ALT 17, Alkaline Phosphatase 49, Total Protein 5.1 L, Albumin 2.2 L, Globulin 2.9, Albumin/Globulin Ratio 0.8 L 05/29/25 06:43: POC Glucose 198 H 05/29/25 11:05: POC Glucose 230 H 05/29/25 16:15: POC Glucose 287 H Micro: Microbiology 05/26/25 15:52 Urine Catheter - Catheter Urine Culture - Final Presumptive C albicans Physical Exam Const alert and oriented x3 General Appearance: cooperative HEENT normocephalic, head/scalp atraumatic, hearing grossly normal bilaterally, external ears normal and external nose normal Eyes EOMs intact bilaterally General Eye: normal appearance of both eyes Neck General: normal visual inspection and trachea midline Resp normal respiratory effort, normal air movement, no retractions and no use of accessory muscles Effort and Inspection: able to speak in complete sentences; Negative for labored, grunting or stridor Cardio regular rate and regular rhythm Extremity Extremity Narrative: L groin incision site with Prevena vac dressing intact, maintaining good seal. Soft to palpation, no apparent hematoma. L leg incision site with skin glue intact, no dehiscence/edema/erythema/drainage L DP and PT with strong biphasic doppler signal LLE with mild edema Skin no rashes or lesions noted Wounds: wounds noted Neuro oriented x3, CN's II-XII intact bilaterally, moves all extremities and no focal motor deficits Speech: speech normal Psych mental status grossly normal Appearance: grossly normal Attitude: calm and engaged Activity / Motor Behavior: appropriate eye contact Speech: normal speech Mood & Affect: euthymic mood Assessment & Plan Assessment/Plan (1) Peripheral vascular occlusive disease: PLAN: She is POD#3 from L fem endart, L fem-peroneal bypass with cadaver graft, and left sartorius flap. Vascular exam is improved and satisfactory. Incision sites are satisfactory, prevena vac dressing is maintaining good seal. Continue ASA and Plavix. LLE edema is consistent with reperfusion, recommend leg elevation at times of rest. Plan is for d/c to TCU pending precert. Charges/Coding Procedures Integumentary 111xxx-113xx: 80992 Global Visit 05/29/25 1654 <Electronically signed by Abena VYAS> Cosigner Signature (if applicable): 06/01/25 1142 <Electronically signed by Russell Clement MD> CC: ~ Signed [facility] Work Phone: 1(375) 327-178207-14-2025 Progress note Author Christos Morrow [facility] Note Date/Time June 01, 2025 9:16 am [facility] Medical Records Department [address] [place] [id number] Progress Note - Hospitalist 06/01/25 0904 MR#: [id number] Acct: [id number] Name: GELY FULLER Rep #:[id number] : 1950 75 From: Christos Morrow MD PCP: Dr. Rishi Vasquez, DO Status:AD IN Location: [address] Reason for Visit Chief Complaint: Generalized weakness Subjective Subjective Patient is a 75-year-old lady with past medical history signal for PAD with previous angioplasty, diabetes mellitus type 2,Recent debridement of surgical debridement of chronic bilateral lower extremity DFU's admitted with progressivegeneralized weakness Objective Data Objective Data Vital Signs: Vital Signs Temp Pulse Resp BP Pulse Ox O2 Del Method O2 Flow Rate 97.8 F 67 16 120/42 L 100 Room Air 2 06/01/25 08:54 06/01/25 08:59 06/01/25 08:54 06/01/25 08:54 06/01/25 08:54 06/01/25 08:54 05/28/25 11:58 Oxygen Flow Rate (L/min) 2 Oxygen Delivery Method Room Air Weight: 74.8 kg Body Mass Index (BMI) 26.4 Intake & Output: Intake and Output for Last 24 Hours 05/30/25 05/31/25 06/01/25 23:59 23:59 23:59 Intake Total 1150 / 1150 850 / 850 400 / 400 Output Total 600 / 600 600 / 600 Balance 550 / 550 250 / 250 400 / 400 Lab / Micro Data 05/31/25 04:44 05/31/25 04:44 Labs: Laboratory Results - last 24 hr 05/31/25 11:31: POC Glucose 226 H 05/31/25 16:55: POC Glucose 261 H 05/31/25 19:58: POC Glucose 204 H 06/01/25 05:16: POC Glucose 119 H Micro: Microbiology 05/26/25 15:52 Urine Catheter - Catheter Urine Culture - Final Presumptive C albicans Physical Exam Narrative GENERAL: cooperative HEENT: Atraumatic; normocephalic EYES; Anicteric, Normal Conjunctiva NECK; supple, normal thyroid, RESPIRATORY: Diminished to auscultation CARDIOVASCULAR: Regular S1 S2, GI: soft, normoactive bowel sounds, : No Renal angle tenderness; EXTREMITIES: No lower extremity send surgical dressing MUSCULOSKELETAL: no muscle wasting NEURO: Awake; no lateralizing signs. SKIN: No Rash PSYCH; Flat affect Assessment & Plan Assessment/Plan (1) Acute osteomyelitis of left foot: PLAN: Plan Patient is a 75-year-old lady with past medical history signal for PAD with previous angioplasty, diabetes mellitus type 2,Recent debridement of surgical debridement of chronic bilateral lower extremity DFU's admitted with progressivegeneralized weakness 1. Physical deconditioning/debility ? Requested for PT OT eval and social services technician to assist with discharge planning 2. Bilateral lower extremity ulcerations and wounds in setting of severe peripheral vascular disease and diabetes ? Had skin grafting done with podiatry on 05/20. 3. Severe peripheral arterial disease ? Patient was seen in consultation by Dr. Russell Ibanez with vascular surgery who didperfprm Left femoral endarterectomy left fem-peroneal bypass with reversed GSV, cadaver left sartorius flap on 05/26/2025 4. Anemia ? Secondary to chronic disorder as well as acute blood loss anemia following surgery monitoring H&H and transfuse if patient becomes symptomatic or hemoglobin falls below 7. Patient was transfused with 2 unit PRBC 5. Chronic kidney disease stage III ? Kidney function at baseline 6. Diabetes mellitus type II -patient's oral hypoglycemics held. Placed on long acting insulin, Accu-Cheks a.c. and at bedtime and covered with sliding scale insulin 7. Dyslipidemia ?Patient is on statin therapy, continued at home dose 8. Diabetic polyneuropathy ? Patient is on pregabalin 9. DVT prophylaxis ? Subcu heparin Charges/Coding Visit Charges Inpatient E&M: 17961 Subs Hosp L2 06/01/25 0916 <Electronically signed by Christos Morrow MD> Cosigner Signature (if applicable): CC: ~ Signed [facility] Work Phone: [phone]) [phone] Progress note Author Maddie Merchant [facility] Note Date/Time May 31, 2025 11:2 7am [facility] Medical Records Department [address] [place] [address] Progress Note - Hospitalist 05/31/25 0709 MR#: [id number] Acct: [id number] Name: JONNYGELY Melinda Rep #:[id number] : 1950 75 From: Maddie Merchant MD PCP: Dr. Rishi Vasquez, DO Status:AD M IN Location: [place] [address]1 Reason for Visit Reason for Visit: Diagnoses Type 2 diabetes mellitus with foot ulcer (05/25/25) Atherosclerosis of [place] arteries of right leg with ulceration of heel and midfoot (05/25/25) Atherosclerosis of [place] arteries of left leg with ulceration of heel and midfoot (05/25/25) Other specified peripheral vascular diseases (05/25/25) Peripheral vascular disease, unspecified (05/25/25) Non-pressure chronic ulcer of other part of unspecified foot with unspecified severity (05/25/25) Non-pressure chronic ulcer of other part of right foot with fat layer exposed (05/25/25) 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 foot with fat layer exposed (05/25/25) Other acute osteomyelitis, left ankle and foot (05/25/25) Weakness (05/25/25) Unspecified fall, initial encounter (05/25/25) Subjective Subjective Patient with no acute events overnight per self and per nursing report. She notes still aching on her tailbone and is trying to offload quite a bit. Discussed possible discharge to TCU today versus potentially tomorrow however still awaiting precertification. Patient reports that her left calf still continues to improve. Patient denies fevers, chills, nausea, emesis, abdominal pain, chest pain or dyspnea. Objective Data Objective Data Vital Signs: Vital Signs Temp Pulse Resp BP Pulse Ox O2 Del Method O2 Flow Rate 97.9 F 60 15 134/59 H 99 Room Air 2 05/31/25 06:01 05/31/25 06:01 05/31/25 06:01 05/31/25 06:01 05/31/25 06:01 05/31/25 06:01 05/28/25 11:58 Oxygen Flow Rate (L/min) 2 Oxygen Delivery Method Room Air Weight: 160 lb 4.417 oz Body Mass Index (BMI) 25.7 Intake & Output: Intake and Output for Last 24 Hours 05/29/25 05/30/25 05/31/25 23:59 23:59 23:59 Intake Total 1050 / 1250 1150 / 1150 400 / 400 Output Total 300 / 300 600 / 600 600 / 600 Balance 750 / 950 550 / 550 -200 / -200 Lab / Micro Data 05/31/25 04:44 05/31/25 04:44 Labs: Laboratory Results - last 24 hr 05/30/25 06:51: POC Glucose 154 H 05/30/25 11:25: POC Glucose 234 H 05/30/25 16:37: POC Glucose 245 H 05/30/25 21:07: POC Glucose 219 H 05/31/25 04:44: WBC 4.8, RBC 2.78 L, Hgb 8.3 L, Hct 24.8 L, MCV 89.2, MCH 29.9, MCHC 33.5, RDW Std Deviation 49.4 H, RDW Coeff of Jorgito 15.1 H, Plt Count 146 L, MPV 10.3, Immature Gran % (Auto) 1.000 H, Neut % (Auto) 66.1, Lymph % (Auto) 24.4, Lea % (Auto) 4.6, Eos % (Auto) 3.1, Baso % (Auto) 0.8, Absolute Neuts (auto) 3.2, Absolute Lymphs (auto) 1.18, Nucleated RBC % 0, Sodium 135, Potassium 4.6, Chloride 104, Carbon Dioxide 21.6, Anion Gap 9, BUN 69 H, Creatinine 1.25 H, Estim Creat Clear Calc 40.92 L, Est GFR (MDRD) Non-Af 46 L, BUN/Creatinine Ratio 55.3 H, Glucose 171 H, Calcium 9.0, Total Bilirubin 0.43, AST 19, ALT 15, Alkaline Phosphatase 48, Total Protein 5.0 L, Albumin 2.3 L, Globulin 2.7, Albumin/Globulin Ratio 0.9 05/31/25 05:54: POC Glucose 168 H Micro: Microbiology 05/26/25 15:52 Urine Catheter - Catheter Urine Culture - Final Presumptive C albicans Physical Exam Narrative Physical Examination: General: Awake, alert, oriented x 3 and cooperative, seated upright in the MS bed, eager to get out into the chair because of tailbone discomfort. Skin: Normal color, normal turgor, no icterus, no cyanosis except for occasionalstage ecchymoses, abrasion, bilateral lower extremity dressings in place, recentbilateral lower extremity dressing changes with no drainage noted, VAC in place. HEENT: AT/NC, EOMI, PERRLA, MMM. Lungs: Mildly diminished, greater bases, appropriate effort, no rales, ronchi orwheezing. Heart: Regular rate with regular rhythm; no gallop, rub audible. Abdomen: Soft, NTTP, ND, normal BS. Extremities: No cyanosis, no clubbing, see skin, bilateral lower extremity dressings, see skin. Neurological: Patient awake, alert, oriented as noted, cognitive function intact; pupils equally reactive to light and accommodation, cranial nerves grossly normal, moving all 4 extremities, mildly tremulous, no obvious focal deficits, strength improving, moderately to severely globally decreased, awaiting SNF transition. Psychiatric: Affect appears normal, no acute evidence of depressive or anxiety feelings. Assessment & Plan Assessment/Plan (1) Acute osteomyelitis of left foot: PLAN: Plan The patient is a 75 y/o F w/ PMHx: CAD, PAD s/p peripheral angioplasty, Diabetesmellitus type II with Chronic neuropathy, Anxiety and Depression, HTN, HLD, Former tobacco use, Chronic normocytic anemia/Fe deficiency anemia, CKD stage III unclear subtype per GFR trending, chronic bilateral lower extremity diabeticulcerations/wounds following with Dr. Irene status post recent 05/20/2025 surgical intervention with discharge 05/21/2025 unfortunately with refusal for skilled placement as there was not a TCU bed available at that time who then returned 05/22/2025 with generalized weakness and mechanical fall while attempting to transfer unable to get herself up prompting return to the hospital for evaluation and care. #1. Adult FTT, Debility with patient deferral of recommended SNF placement following recent discharge w/ return to home with mechanical fall complicated byRecent bilateral lower extremity diabetic wounds with significantly MRSA infected left lower diabetic wound with associated MRSA bacteremia: Status post 05/20/2025 incision of the bone cortex of the left ankle, surgical skin grafting to the left leg, surgical skin grafting to the left foot, application of graft substitute, wound culture from OR with MRSA, discharged on linezolid, will continue antibiotic regimen with completion date 06/01/2025, continue podiatry involvement as well as continued infectious disease involvement and vascular surgery as noted, most recent podiatry evaluation 05/24/2025 with noted plan for continued Adaptic placement to the graft area with overlapping dry sterile dressing and single layer of Man compression bandage with plan for continued change every 3 days. Podiatry noted dressings may be removed if needed temporarily however replaced immediately following as noted. Patient cleared byvascular surgery and podiatry with plan for transition to TCU, possibly 05/31/2025 however still awaiting precertification, may not be until Sunday from discussion with staff. #2. Peripheral vascular disease, PAD with significant bilateral lower extremitywounds and ulceration: Patient following with Dr. Clement, most recent imaging noted during previous presentation also with CTA demonstrating significant calcific femoral disease bilaterally with angiogram evaluation of the tibial vessels. 05/26/25 left femoral endarterectomy, left femoral peroneal bypass with reversed GSV, cadaver left sartorius flap per Dr. Clement. Patient remains in the ICU with plan for transition out per vascular surgery preference 05/28/2025. Continue aspirin, Plavix, statin, hypertensive regimen however will defer to vascular surgery for adjustments or if temporary hold as needed given recent intervention if any bleeding concerns arise. 05/26/2025 postoperative hemoglobin 9.6, 05/27/25 AM hemoglobin 8.5-> 05/28/25 hemoglobin 7.3, given recent vascular surgery to be cautious we will administer 1 unit PRBC and plan repeat hemoglobinapproximately 1 hour following completion. Low-dose heparin discontinued in agreement with vascular surgery. Patient cleared by vascular surgery, wound care dressing changes to bilateral lower extremity today noted to be well-appearing, VAC still in place, will plan transition to TCU, possibly 05/31/2025 however still awaiting precertification, may not be until Sunday from discussionwith staff. #3. Acute GP Organism Complicated Urinary Tract Infection, RULED OUT (UCx without marked growth): Gonzalez catheter placed in the OR with mildly concerning output, urinalysis and urine culture with UCx w/ preliminary GP organism however eventually resulted without any marked growth, Gonzalez catheter discontinued and antibiotic therapy de-escalated off. #4. Chronic Kidney Disease Stage III, unclear subtype or GFR trending: Admission BUN/Cr 56/1.22, GFR 47, baseline renal function primarily 1.3-1.5 but did have recent presentation with acute kidney injury with creatinine up to 1.96, resolved currently and had felt at that time to be secondary to ATN, repeat BMP in AM. 05/31/2025 BUN/creatinine 69/1.25, GFR 46. #5. Diabetes mellitus type II complicated by #1 with chronic diabetic wounds and chronic diabetic neuropathy: Hold oral home regimen, maintain on ADA diet, awaiting vascular surgery wanted percent confirmation of intervention 05/26/2025, ADA diet, will maintain on accu checks w/ ISS, continue home pregabalin regimen. #6. Hypertension: Continue home regimen including metoprolol, amlodipine with hold parameters as needed, PRN hydralazine. #7. Hyperlipidemia: Continue home statin therapy. #8. Chronic normocytic anemia/iron deficiency anemia: Admission hemoglobin 9.5,MCV 90.2, baseline hemoglobin has vacillated but appears primarily 9 range, continue to closely trend CBC, if dropping further will investigate. Will continue iron supplementation. 05/27/25 hemoglobin 8.5-> 05/28/25 hemoglobin 7.3, administered 1 unit PRBC. 05/31/2025 hemoglobin 8.3. #9. Anxiety and depression: Noted history in the chart, not on regimen per current list, continue to monitor and follow-up outpatient as previously arranged. #10. Former tobacco use: Encourage continued tobacco cessation. #11. DVT prophylaxis: Heparin chemoprophylactic dosing. #12. CODE status: Patient VICTOR MANUEL is her sister. Full Code status. Charges/Coding Visit Charges Inpatient E&M: 45700 Subs Hosp L2 05/31/25 1127 <Electronically signed by Maddie Merchant MD> Cosigner Signature (if applicable): CC: ~ Signed [facility] Work Phone: 1(137) 299-372407-12-2025 Progress note Author Maddie Merchant [facility] Note Date/Time May 30, 2025 10:0 2am [facility] Medical Records Department [address] [place] [address] Progress Note - Hospitalist 05/30/25711 MR#: [id number] Acct: [id number] Name: GELY FULLER Rep #:[id number] : 1950 75 From: Maddie Merchant MD PCP: Dr. Rishi Vasquez, DO Status:AD M IN Location: [place] [address]-1 Reason for Visit Reason for Visit: Diagnoses Type 2 diabetes mellitus with foot ulcer (05/25/25) Atherosclerosis of [place] arteries of right leg with ulceration of heel and midfoot (05/25/25) Atherosclerosis of [place] arteries of left leg with ulceration of heel and midfoot (05/25/25) Other specified peripheral vascular diseases (05/25/25) Peripheral vascular disease, unspecified (05/25/25) Non-pressure chronic ulcer of other part of unspecified foot with unspecified severity (05/25/25) Non-pressure chronic ulcer of other part of right foot with fat layer exposed (05/25/25) 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 foot with fat layer exposed (05/25/25) Other acute osteomyelitis, left ankle and foot (05/25/25) Weakness (05/25/25) Unspecified fall, initial encounter (05/25/25) Subjective Subjective Patient with no acute events overnight per self and per nursing report. Only complaint is some discomfort to her tailbone but she does report that she has been sitting frequently and is attempting to offload. Patient understand that likely TCU bed will not be available until 05/31/2025. Patient notes discomfort to the left lower leg is continuing to improve. Patient denies fevers, chills, nausea, emesis, abdominal pain, chest pain or dyspnea. Objective Data Objective Data Vital Signs: Vital Signs Temp Pulse Resp BP Pulse Ox O2 Del Method O2 Flow Rate 97.8 F 68 16 119/46 L 98 Room Air 2 05/30/25 04:55 05/30/25 04:55 05/30/25 04:55 05/30/25 04:55 05/30/25 04:55 05/30/25 04:55 05/28/25 11:58 Oxygen Flow Rate (L/min) 2 Oxygen Delivery Method Room Air Weight: 159 lb 9.835 oz Body Mass Index (BMI) 25.6 Intake & Output: Intake and Output for Last 24 Hours 05/28/25 05/29/25 05/30/25 23:59 23:59 23:59 Intake Total 868.17 / 1018.17 1050 / 1250 350 / 350 Output Total 800 / 800 300 / 300 600 / 600 Balance 68.17 / 218.17 750 / 950 -250 / -250 Lab / Micro Data 05/30/25 04:45 05/30/25 04:45 Labs: Laboratory Results - last 24 hr 05/29/25 06:43: POC Glucose 198 H 05/29/25 11:05: POC Glucose 230 H 05/29/25 16:15: POC Glucose 287 H 05/29/25 22:35: POC Glucose 234 H 05/30/25 04:45: WBC 6.4, RBC 2.74 L, Hgb 8.0 L, Hct 24.5 L, MCV 89.4, MCH 29.2, MCHC 32.7, RDW Std Deviation 50.7 H, RDW Coeff of Jorgito 15.6 H, Plt Count 160, MPV10.2, Immature Gran % (Auto) 1.300 H, Neut % (Auto) 71.2 H, Lymph % (Auto) 18.9 L, Lea % (Auto) 5.5, Eos % (Auto) 2.5, Baso % (Auto) 0.6, Absolute Neuts (auto)4.6, Absolute Lymphs (auto) 1.21, Nucleated RBC % 0, Sodium 134, Potassium 4.4, Chloride 102, Carbon Dioxide 20.6 L, Anion Gap 11, BUN 66 H, Creatinine 1.31 H, Estim Creat Clear Calc 38.97 L, Est GFR (MDRD) Non-Af 43 L, BUN/Creatinine Ratio50.3 H, Glucose 171 H, Calcium 8.9, Total Bilirubin 0.36, AST 21, ALT 15, Alkaline Phosphatase 49, Total Protein 5.0 L, Albumin 2.2 L, Globulin 2.8, Albumin/Globulin Ratio 0.8 L Micro: Microbiology 05/26/25 15:52 Urine Catheter - Catheter Urine Culture - Final Presumptive C albicans Physical Exam Narrative Physical Examination: General: Awake, alert, oriented x 3 and cooperative, seated upright in the CA bedside chair, feels well this morning, no marked pain to the left lower extremity, improving. Skin: Normal color, normal turgor, no icterus, no cyanosis except for occasionalstage ecchymoses, abrasion, bilateral lower extremity dressings in place, recentbilateral lower extremity dressing changes with no drainage noted, VAC in place. HEENT: AT/NC, EOMI, PERRLA, MMM. Lungs: Mildly diminished, greater bases, appropriate effort, no rales, ronchi orwheezing. Heart: Regular rate with regular rhythm; no gallop, rub audible. Abdomen: Soft, NTTP, ND, normal BS. Extremities: No cyanosis, no clubbing, see skin, bilateral lower extremity dressings, see skin. Neurological: Patient awake, alert, oriented as noted, cognitive function intact; pupils equally reactive to light and accommodation, cranial nerves grossly normal, moving all 4 extremities, mildly tremulous, no obvious focal deficits, strength improving, moderately to severely globally decreased given recent intervention. Psychiatric: Affect appears mildly fatigued otherwise normal, no acute evidence of depressive or anxiety feelings. Assessment & Plan Assessment/Plan (1) Acute osteomyelitis of left foot: PLAN: Plan The patient is a 75 y/o F w/ PMHx: CAD, PAD s/p peripheral angioplasty, Diabetesmellitus type II with Chronic neuropathy, Anxiety and Depression, HTN, HLD, Former tobacco use, Chronic normocytic anemia/Fe deficiency anemia, CKD stage III unclear subtype per GFR trending, chronic bilateral lower extremity diabeticulcerations/wounds following with Dr. Irene status post recent 05/20/2025 surgical intervention with discharge 05/21/2025 unfortunately with refusal for skilled placement as there was not a TCU bed available at that time who then returned 05/22/2025 with generalized weakness and mechanical fall while attempting to transfer unable to get herself up prompting return to the hospital for evaluation and care. #1. Adult FTT, Debility with patient deferral of recommended SNF placement following recent discharge w/ return to home with mechanical fall complicated byRecent bilateral lower extremity diabetic wounds with significantly MRSA infected left lower diabetic wound with associated MRSA bacteremia: Status post 05/20/2025 incision of the bone cortex of the left ankle, surgical skin grafting to the left leg, surgical skin grafting to the left foot, application of graft substitute, wound culture from OR with MRSA, discharged on linezolid, will continue antibiotic regimen with completion date 06/01/2025, continue podiatry involvement as well as continued infectious disease involvement and vascular surgery as noted, most recent podiatry evaluation 05/24/2025 with noted plan for continued Adaptic placement to the graft area with overlapping dry sterile dressing and single layer of Man compression bandage with plan for continued change every 3 days. Podiatry noted dressings may be removed if needed temporarily however replaced immediately following as noted. Patient cleared byvascular surgery and podiatry with plan for transition to TCU, from discussion hopefully 05/31/2025 precertification and bed availability. #2. Peripheral vascular disease, PAD with significant bilateral lower extremitywounds and ulceration: Patient following with Dr. Clement, most recent imaging noted during previous presentation also with CTA demonstrating significant calcific femoral disease bilaterally with angiogram evaluation of the tibial vessels. 05/26/25 left femoral endarterectomy, left femoral peroneal bypass with reversed GSV, cadaver left sartorius flap per Dr. Clement. Patient remains in the ICU with plan for transition out per vascular surgery preference 05/28/2025. Continue aspirin, Plavix, statin, hypertensive regimen however will defer to vascular surgery for adjustments or if temporary hold as needed given recent intervention if any bleeding concerns arise. 05/26/2025 postoperative hemoglobin 9.6, 05/27/25 AM hemoglobin 8.5-> 05/28/25 hemoglobin 7.3, given recent vascular surgery to be cautious we will administer 1 unit PRBC and plan repeat hemoglobinapproximately 1 hour following completion. Low-dose heparin discontinued in agreement with vascular surgery. Patient cleared by vascular surgery, wound care dressing changes to bilateral lower extremity today noted to be well-appearing, VAC still in place, will plan transition to TCU possibly 05/31/2025 with ongoing distal extremity care as well as left groin care per vascular surgery and podiatry previous recommendations. #3. Acute GP Organism Complicated Urinary Tract Infection, RULED OUT (UCx without marked growth): Gonzalez catheter placed in the OR with mildly concerning output, urinalysis and urine culture with UCx w/ preliminary GP organism however eventually resulted without any marked growth, Gonzalez catheter discontinued and antibiotic therapy de-escalated off. #4. Chronic Kidney Disease Stage III, unclear subtype or GFR trending: Admission BUN/Cr 56/1.22, GFR 47, baseline renal function primarily 1.3-1.5 but did have recent presentation with acute kidney injury with creatinine up to 1.96, resolved currently and had felt at that time to be secondary to ATN, repeat BMP in AM. 05/29/2025 BUN/creatinine 66/1.31, GFR 43. #5. Diabetes mellitus type II complicated by #1 with chronic diabetic wounds and chronic diabetic neuropathy: Hold oral home regimen, maintain on ADA diet, awaiting vascular surgery wanted percent confirmation of intervention 05/26/2025, ADA diet, will maintain on accu checks w/ ISS, continue home pregabalin regimen. #6. Hypertension: Continue home regimen including metoprolol, amlodipine with hold parameters as needed, PRN hydralazine. #7. Hyperlipidemia: Continue home statin therapy. #8. Chronic normocytic anemia/iron deficiency anemia: Admission hemoglobin 9.5,MCV 90.2, baseline hemoglobin has vacillated but appears primarily 9 range, continue to closely trend CBC, if dropping further will investigate. Will continue iron supplementation. 05/27/25 hemoglobin 8.5-> 05/28/25 hemoglobin 7.3, administered 1 unit PRBC. 05/30/2025 hemoglobin 8.0. #9. Anxiety and depression: Noted history in the chart, not on regimen per current list, continue to monitor and follow-up outpatient as previously arranged. #10. Former tobacco use: Encourage continued tobacco cessation. #11. DVT prophylaxis: Heparin chemoprophylactic dosing. #12. CODE status: Patient VICTOR MANUEL is her sister. Full Code status. Charges/Coding Visit Charges Inpatient E&M: 79383 Subs Hosp L2 05/30/25 1002 <Electronically signed by Maddie Merchant MD> Cosigner Signature (if applicable): CC: ~ Signed [facility] Work Phone: 1(963) 368-171007-11-2025 Progress note Author Maddie Merchant [facility] Note Date/Time May 29, 2025 11:1 7am [facility] Medical Records Department [address] [place] [address] Progress Note - Hospitalist 05/29/25 0659 MR#: [id number] Acct: [id number] Name: GELY FULLER Rep #:[id number] : 1950 75 From: Maddie Merchant MD PCP: Dr. Rishi Vasquez, DO Status:AD M IN Location: [facility]-6 Reason for Visit Reason for Visit: Diagnoses Type 2 diabetes mellitus with foot ulcer (05/25/25) Atherosclerosis of [place] arteries of right leg with ulceration of heel and midfoot (05/25/25) Atherosclerosis of [place] arteries of left leg with ulceration of heel and midfoot (05/25/25) Other specified peripheral vascular diseases (05/25/25) Peripheral vascular disease, unspecified (05/25/25) Non-pressure chronic ulcer of other part of unspecified foot with unspecified severity (05/25/25) Non-pressure chronic ulcer of other part of right foot with fat layer exposed (05/25/25) 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 foot with fat layer exposed (05/25/25) Weakness (05/25/25) Unspecified fall, initial encounter (05/25/25) Subjective Subjective Patient with no acute events overnight per self and per nursing report. Patient's dressing being changed by wound care this morning with no concerns. She does state still some discomfort to the left It is primarily at the incisionmark. Patient remains amenable to transition to TCU once bed available and fromdiscussion with case management/social work may not happen until Sunday but still awaiting precertification. Patient denies fevers, chills, nausea, emesis,abdominal pain, chest pain or dyspnea. Objective Data Objective Data Vital Signs: Vital Signs Temp Pulse Resp BP Pulse Ox O2 Del Method O2 Flow Rate 98.7 F 69 16 131/54 H 95 Room Air 2 05/29/25 03:50 05/29/25 03:50 05/29/25 03:50 05/29/25 03:50 05/29/25 03:50 05/29/25 03:50 05/28/25 11:58 Oxygen Flow Rate (L/min) 2 Oxygen Delivery Method Room Air Weight: 159 lb 6.307 oz Body Mass Index (BMI) 25.6 Intake & Output: Intake and Output for Last 24 Hours 05/27/25 05/28/25 05/29/25 23:59 23:59 23:59 Intake Total 377.34 / 377.34 868.17 / 1018.17 250 / 250 Output Total 950 / 1200 800 / 800 300 / 300 Balance -572.66 / -822.66 68.17 / 218.17 -50 / -50 Lab / Micro Data 05/29/25 05:15 05/29/25 05:15 Labs: Laboratory Results - last 24 hr 05/26/25 04:52: Blood Type A POSITIVE, Antibody Screen NEGATIVE, Crossmatch See Detail 05/28/25 07:47: POC Glucose 184 H 05/28/25 11:24: POC Glucose 186 H 05/28/25 15:03: Hgb 9.6 L, Hct 29.9 L, Sodium 136, Potassium 5.1, Chloride 104, Carbon Dioxide 21.3, Anion Gap 11, BUN 41 H, Creatinine 1.11, Estim Creat Clear Calc 45.96 L, Est GFR (MDRD) Non-Af 52 L, BUN/Creatinine Ratio 36.7 H, Glucose 318 H, Calcium 8.8 05/28/25 16:13: POC Glucose 286 H 05/28/25 21:43: POC Glucose 273 H 05/29/25 05:15: WBC 9.1, RBC 2.87 L, Hgb 8.4 L, Hct 25.9 L, MCV 90.2, MCH 29.3, MCHC 32.4, RDW Std Deviation 52.9 H, RDW Coeff of [place] 16.0 H, Plt Count 163, MPV9.8, Immature Gran % (Auto) 1.700 H, Neut % (Auto) 80.6 H, Lymph % (Auto) 11.7 L, Lea % (Auto) 4.3, Eos % (Auto) 1.3, Baso % (Auto) 0.4, Absolute Neuts (auto) 7.3, Absolute Lymphs (auto) 1.06, Nucleated RBC % 0.2, Sodium 136, Potassium 4.6, Chloride 106, Carbon Dioxide 20.3 L, Anion Gap 9, BUN 52 H, Creatinine 1.19, Estim Creat Clear Calc 42.87 L, Est GFR (MDRD) Non-Af 48 L, BUN/CreatinineRatio 43.9 H, Glucose 197 H, Calcium 8.9, Total Bilirubin 0.42, AST 29, ALT 17, Alkaline Phosphatase 49, Total Protein 5.1 L, Albumin 2.2 L, Globulin 2.9, Albumin/Globulin Ratio 0.8 L Micro: Microbiology 05/26/25 15:52 Urine Catheter - Catheter Urine Culture - Preliminary Yeast Like Organism Physical Exam Narrative Physical Examination: General: Awake, alert, oriented x 3 and cooperative, seated upright in the CA bedside chair, recent dressing changes, no complaints aside from still discomfort to the left calf at the region of the incision but otherwise feeling well. Skin: Normal color, normal turgor, no icterus, no cyanosis except for occasionalstage ecchymoses, abrasion, bilateral lower extremity dressings in place, recentbilateral lower extremity dressing changes with no drainage noted, VAC in place. HEENT: AT/NC, EOMI, PERRLA, MMM. Lungs: Mildly diminished, greater bases, proper effort, no rales, ronchi or wheezing. Heart: Regular rate with regular rhythm; no gallop, rub audible. Abdomen: Soft, NTTP, ND, normal BS. Extremities: No cyanosis, no clubbing, see skin, bilateral lower extremity dressings, see skin. Neurological: Patient awake, alert, oriented as noted, cognitive function intact; pupils equally reactive to light and accommodation, cranial nerves grossly normal, moving all 4 extremities, mildly tremulous, no obvious focal deficits, strength improving, moderately to severely globally decreased given recent intervention. Psychiatric: Affect appears normal, no acute evidence of depressive or anxiety feelings. Assessment & Plan Assessment/Plan (1) Acute osteomyelitis of left foot: PLAN: Plan The patient is a 75 y/o F w/ PMHx: CAD, PAD s/p peripheral angioplasty, Diabetesmellitus type II with Chronic neuropathy, Anxiety and Depression, HTN, HLD, Former tobacco use, Chronic normocytic anemia/Fe deficiency anemia, CKD stage III unclear subtype per GFR trending, chronic bilateral lower extremity diabeticulcerations/wounds following with Dr. Irene status post recent 05/20/2025 surgical intervention with discharge 05/21/2025 unfortunately with refusal for skilled placement as there was not a TCU bed available at that time who then returned 05/22/2025 with generalized weakness and mechanical fall while attempting to transfer unable to get herself up prompting return to the hospital for evaluation and care. #1. Adult FTT, Debility with patient deferral of recommended SNF placement following recent discharge w/ return to home with mechanical fall complicated byRecent bilateral lower extremity diabetic wounds with significantly MRSA infected left lower diabetic wound with associated MRSA bacteremia: Status post 05/20/2025 incision of the bone cortex of the left ankle, surgical skin grafting to the left leg, surgical skin grafting to the left foot, application of graft substitute, wound culture from OR with MRSA, discharged on linezolid, will continue antibiotic regimen with completion date 06/01/2025, continue podiatry involvement as well as continued infectious disease involvement and vascular surgery as noted, most recent podiatry evaluation 05/24/2025 with noted plan for continued Adaptic placement to the graft area with overlapping dry sterile dressing and single layer of Man compression bandage with plan for continued change every 3 days. Podiatry noted dressings may be removed if needed temporarily however replaced immediately following as noted. Patient cleared byvascular surgery and podiatry with plan for transition to TCU possibly 05/29/2025however may not have bed available until Sunday, only awaiting precertification at this time. #2. Peripheral vascular disease, PAD with significant bilateral lower extremitywounds and ulceration: Patient following with Dr. Clement, most recent imaging noted during previous presentation also with CTA demonstrating significant calcific femoral disease bilaterally with angiogram evaluation of the tibial vessels. 05/26/25 left femoral endarterectomy, left femoral peroneal bypass with reversed GSV, cadaver left sartorius flap per Dr. Clement. Patient remains in the ICU with plan for transition out per vascular surgery preference 05/28/2025. Continue aspirin, Plavix, statin, hypertensive regimen however will defer to vascular surgery for adjustments or if temporary hold as needed given recent intervention if any bleeding concerns arise. 05/26/2025 postoperative hemoglobin 9.6, 05/27/25 AM hemoglobin 8.5-> 05/28/25 hemoglobin 7.3, given recent vascular surgery to be cautious we will administer 1 unit PRBC and plan repeat hemoglobinapproximately 1 hour following completion. Low-dose heparin discontinued in agreement with vascular surgery. Patient cleared by vascular surgery, wound care dressing changes to bilateral lower extremity today noted to be well-appearing, VAC still in place, will plan transition to TCU with ongoing distal extremity care as well as left groin care per vascular surgery and podiatry previous recommendations. #3. Acute GP Organism Complicated Urinary Tract Infection, RULED OUT (UCx without marked growth): Gonzalez catheter placed in the OR with mildly concerning output, urinalysis and urine culture have requested with UCx w/ preliminary GP organism however eventually resulted without any marked growth, Gonzalez catheter discontinued and antibiotic therapy de-escalated off. #4. Chronic Kidney Disease Stage III, unclear subtype or GFR trending: Admission BUN/Cr 56/1.22, GFR 47, baseline renal function primarily 1.3-1.5 but did have recent presentation with acute kidney injury with creatinine up to 1.96, resolved currently and had felt at that time to be secondary to ATN, repeat BMP in AM. 05/27/2025 BUN/creatinine 36/1.09, GFR 54-> 05/29/25 BUN/creatinine 52/1.19, GFR 48. #5. Diabetes mellitus type II complicated by #1 with chronic diabetic wounds and chronic diabetic neuropathy: Hold oral home regimen, maintain on ADA diet, awaiting vascular surgery wanted percent confirmation of intervention 05/26/2025, will allow n.p.o. status per their timeline, will maintain on accu checks w/ ISS, continue home pregabalin regimen. #6. Hypertension: Continue home regimen including metoprolol, amlodipine with hold parameters as needed, PRN hydralazine. #7. Hyperlipidemia: Continue home statin therapy. #8. Chronic normocytic anemia/iron deficiency anemia: Admission hemoglobin 9.5,MCV 90.2, baseline hemoglobin has vacillated but appears primarily 9 range, continue to closely trend CBC, if dropping further will investigate. Will continue iron supplementation. 05/27/25 hemoglobin 8.5-> 05/28/25 hemoglobin 7.3, administered 1 unit PRBC. 05/29/2025 hemoglobin 8.4. #9. Anxiety and depression: Noted history in the chart, not on regimen per current list, continue to monitor and follow-up outpatient as previously arranged. #10. Former tobacco use: Encourage continued tobacco cessation. #11. DVT prophylaxis: Heparin chemoprophylactic dosing. #12. CODE status: Patient VICTOR MANUEL is her sister. Full Code status. Charges/Coding Visit Charges Inpatient E&M: 06518 Subs Hosp L2 05/29/25 1117 <Electronically signed by Maddie Merchant MD> Cosigner Signature (if applicable): CC: ~ Signed [facility] Work Phone: 1(706) 723-315307-10-2025 Discharge summary Author Maddie Merchant [facility] Note Date/Time May 28, 2025 3:12 pm [facility] Medical Records Department [address] [place] [id number] Transfer to [facility] MR#: [id number] Acct: [id number] Name: GELY FULLER Rep #:[id number] : 1950 75 From: Maddie Merchant MD PCP: Dr. Rishi Vasquez, DO Status:AD M IN Certification of patient admission REQUIRED AT TIME OF ADMISSION. I CERTIFY THAT POST-HOSPITAL ECF SERVICES ARE REQUIRED TO BE GIVEN ON AN IN-PATIENT BASIS BECAUSE OF THE ABOVE NAMED PATIENT'S NEED FOR LONG TERM CARE ON A CONTINUING BASIS FOR THE CONDITION(S) FOR WHICH HE/SHE WAS RECEIVING IN-PATIENT HOSPITAL SERVICES PRIOR TO HIS/HER TRANSFER TO THE [facility]. 05/28/25 1512<Electronically signed by Maddie Merchant MD> Diet Diet Order/Speech Therapy: INPATIENT Hospital Diet / Speech Therapy Order(s) 05/28/25 08:35 Carb [Diet: Carbohydrate Controlled] Dietary Modifications:: Consistent Carbohydrate Type of Dietary Supplement:: Davion Routine Orders/Code Status Enema Frequency: Daily PRN Routine Lab Work: - (Repeat CBC, BMP in 1 week.) Code Status: Full Code DC O2, CPAP, BIPAP needs Home O2 Discharge instructions: No Wound(s) left leg: Wound Type: Neuropathic/Diabetic Foot Ulcer right foot: Wound Type: Neuropathic/Diabetic Foot Ulcer LT groin: Wound Type: Surgical Incision right heel: Wound Type: Neuropathic/Diabetic Foot Ulcer Dressing Change: Adaptic left posterior lower leg: Wound Type: Neuropathic/Diabetic Foot Ulcer Dressing Change: Adaptic left heel: Wound Type: Neuropathic/Diabetic Foot Ulcer Dressing Change: Adaptic left medial ankle: Wound Type: Neuropathic/Diabetic Foot Ulcer Dressing Change: Adaptic left lateral foot: Wound Type: Neuropathic/Diabetic Foot Ulcer Dressing Change: Adaptic left medial lower leg: Wound Type: Neuropathic/Diabetic Foot Ulcer Dressing Change: dry dressing Suggestions for Active Care Change Position every (hours): 2 Hours to sit in a chair: 6 Times a day to sit in chair: 3 Therapies Weight Bearing: Weight bearing as tolerated (Patient can be weightbearing as tolerated in surgical shoes and walker.) Extremity Affected:: Bilateral Lower Physical Therapy: Eval and Treat Occupational Therapy: Eval and Treat Problem/Diagnosis (1) Fall: Status: Acute Code(s): W19.XXXA - Unspecified fall, initial encounter (2) Generalized weakness: Status: Acute Code(s): R53.1 - Weakness Allergies/Procedures Done in Hospital Allergies Sulfa (Sulfonamide Antibiotics) Allergy (Verified 05/22/25 11:05) Unknown doesn't remember/ allergy noted as a child Procedures: EKG and - (05/26/25 left femoral endarterectomy left fem-peroneal bypass with reversed GSV, cadaver left sartorius flap per Dr. Clement.) Type of Care/Length of Stay Estimated LOS: Convalescent Care Less Than 30 days Type of Care Needed: Skilled Rehab Potential: Good Prognosis: Good Additional Orders/Day of Discharge Day of Discharge: 05/29/25 Dietary and Speech Recommendations Dietitian Recommendations/Changes: Will order Davion w/ breakfast and lunch for wound healing Continue Cardiac / Consistent CHO diet as ordered Discharge Plan Admission Admit Date/Time: 05/25/25 11:46 Primary Reason for Your Visit: Adult FTT, BL LE Diabetic wounds (recent MRSA infected wound), PAD Attending Provider: Maddie Merchant Primary Care Provider: Rishi Vasquez Consulting Providers: Wilberto Suazo; Michaela Joshua; Patel Irene; Russell Clement Instructions Additional Instructions / Restrictions: PODIATRY BILATERAL LOWER EXTREMITY CARE DISCHARGE AND FOLLOW-UP INSTRUCTIONS: --Dressing change orders to the bilateral extremity: 1. Remove all dressing down to the amniotic skin graft and leave the skin graftintact with jacob. 2. Cover the skin graft with Adaptic, 4 x 4's, light Kerlix wrap, underlying cast padding and Buzz wrap's with 20% compression from sulcus of toes to the mid calf to the bilateral lower extremity. 3. Please change bilateral lower extremity dressing every 3 days. 4. Please offload left lower extremity with Multi-Podus boot. --Weightbearing status: Patient can be weightbearing as tolerated in surgical shoes and walker --Please follow-up with Dr. Irene in private office in 7 to 10 days post- discharge. VASCULAR SURGERY DISCHARGE AND FOLLOW-UP INSTRUCTIONS: --For L groin incision site, Prevena vacuum dressing is to remain in place for 7days postoperatively (removal date 06/02) as long as it maintains good seal. If it is alarming, loses seal, or otherwise malfunctions then OK to remove sooner as needed. The incision itself is closed with dermabond and Prineo tape which will continue to protect the incision and will peel/flake away on its own with time. For the L lower leg incision, this is also closed with dermabond. OK for both to be open to air as long as there is no drainage. If there is drainage noted, then would apply dry gauze dressings and change daily. From vascular surgical perspective, OK for showers and soap/water can rinse over the incision sites but defer to podiatry regarding bathing restrictions. --With respect to activity, she is not to lift >20 lbs for 3 weeks but otherwisecan proceed with activity as tolerated. --Please continue ASA 81mg daily and Plavix 75mg daily. --Please follow-up in vascular surgery office in 2 weeks. Discharge Orders/Prescriptions Prescriptions: New menthol-zinc oxide [Calmoseptine] 0.44-20.6 % Ointment 1 applic topical BID Qty: 0 0RF Protocol: *Topical Application Instructions APPLICATION INSTRUCTIONS: groin gabapentin (bulk) 100 % Powder 2 ea topical BID Qty: 0 0RF oxycodone 5 mg Tablet 5 mg PO Q4H PRN PRN (Reason: Pain Score 4-10) Qty: 0 0RF Continued calcium carbonate [Calcium 600] 600 [...] 325 MG tablet 325 mg PO DAILY linezolid 600 mg Tablet 600 mg PO BID Qty: 21 0RF Rx Instructions: STOP DATE 06/01/25 AFTER AM DOSE. pregabalin 100 mg capsule 100 mg PO [...] 12.5 mg PO DAILY Qty: 45 3RF Discontinued Santyl 250 unit/gram Ointment 1 applic topical DAILY Qty: 15 0RF Protocol: *Topical Application Instructions APPLICATION INSTRUCTIONS: apply nickel thick layer to left posterior lower leg, left medial ankle, and left heel Rx Instructions: Apply to wound as instructed Referrals / Follow Up: Russell Clement MD [Med Staff - Active Staff] - (Follow-up with Vascular surgery in 2 weeks.) Rishi Vasquez DO [Primary Care Provider] - (Follow-up within 1-2 days of SNFdischarge.) Patel Irene DPM [Med Staff - Active Staff] - See Referral Note (Patient is a follow-up in private office 7 to 10 days post hospital discharge.) Disposition Disposition (needs filled in before D/C Order can be placed): Assisted Facility 05/28/25 1512 <Electronically signed by Maddie Merchant MD> Cosigner Signature (if applicable): CC: ONEIDA Irene; Dr. Wilberto Suazo DO; Dr. Russell Clement MD; Dr. Rishi Vasquez DO; Dr. Michaela Joshua DO ~ [facility] Work Phone: [phone]) 349-953007-10-2025 Progress note Author Abena Fiore [facility] Note Date/Time May 28, 2025 12:1 3pm [facility] Medical Records Department [address] [place] [address] Progress Note - Surgery 05/28/25831 MR#: [id number] Acct: [id number] Name: GELY FULLER Rep #:[id number] : 1950 75 From: Abena VYAS PCP: Dr. Rishi Vasquez, DO Status:AD M IN Location: ICU CVICU20 3-1 Subjective Subjective I saw Gely resting in bed this morning. She reports feeling fatigued but otherwise no complaints. Her Hgb did drift down to 7.3 this morning. She has nothad any further emesis, no other active bleeding noted. She has no other complaints. Objective Data Objective Data Vital Signs: Vital Signs Temp Pulse Resp BP Pulse Ox O2 Del Method O2 Flow Rate 97.1 F L 80 16 123/66 H 98 Room Air 2 05/28/25 08:25 05/28/25 08:27 05/28/25 08:25 05/28/25 08:25 05/28/25 08:25 05/28/25 08:25 05/27/25 12:59 Oxygen Flow Rate (L/min) 2 Oxygen Delivery Method Room Air Weight: 159 lb 6.307 oz Body Mass Index (BMI) 25.7 Intake & Output: Intake and Output for Last 24 Hours 05/26/25 05/27/25 05/28/25 23:59 23:59 23:59 Intake Total 182.5 / 182.5 377.34 / 377.34 118.17 / 118.17 Output Total 3400 / 3650 950 / 1200 450 / 450 Balance -3217.5 / -3467.5 -572.66 / -822.66 -331.83 / -331.83 Lab / Micro Data 05/28/25 03:50 05/27/25 03:05 Labs: Laboratory Results - last 24 hr 05/26/25 04:52: Blood Type A POSITIVE, Antibody Screen NEGATIVE, Crossmatch See Detail 05/26/25 20:37: POC Glucose 221 H 05/27/25 08:14: POC Glucose 237 H 05/27/25 11:58: POC Glucose 264 H 05/27/25 16:06: POC Glucose 226 H 05/27/25 21:27: POC Glucose 220 H 05/28/25 03:50: WBC 9.7, RBC 2.51 L, Hgb 7.3 L, Hct 23.0 L, MCV 91.6, MCH 29.1, MCHC 31.7 L, RDW Std Deviation 54.3 H, RDW Coeff of Jorgito 16.1 H, Plt Count 173, MPV 9.8, Immature Gran % (Auto) 2.100 H, Neut % (Auto) 77.8 H, Lymph % (Auto) 12.6 L, Lea % (Auto) 6.5, Eos % (Auto) 0.7, Baso % (Auto) 0.3, Absolute Neuts (auto) 7.6, Absolute Lymphs (auto) 1.22, Nucleated RBC % 0, APTT 63.1 H 05/28/25 07:47: POC Glucose 184 H Physical Exam Const alert and oriented x3 General Appearance: cooperative HEENT normocephalic, head/scalp atraumatic, hearing grossly normal bilaterally, external ears normal and external nose normal Eyes EOMs intact bilaterally General Eye: normal appearance of both eyes Neck General: normal visual inspection and trachea midline Resp normal respiratory effort, normal air movement, no retractions and no use of accessory muscles Effort and Inspection: able to speak in complete sentences; Negative for labored, grunting or stridor Cardio regular rate and regular rhythm Extremity Extremity Narrative: L groin incision site with Prevena vac dressing intact, maintaining good seal. Soft to palpation, no apparent hematoma. L leg incision site with skin glue intact, no dehiscence/edema/erythema/drainage L DP with strong biphasic doppler signal Skin no rashes or lesions noted Wounds: wounds noted Neuro oriented x3, CN's II-XII intact bilaterally, moves all extremities and no focal motor deficits Speech: speech normal Psych mental status grossly normal Appearance: grossly normal Attitude: calm and engaged Activity / Motor Behavior: appropriate eye contact Speech: normal speech Mood & Affect: euthymic mood Assessment & Plan Assessment/Plan (1) Peripheral vascular occlusive disease: PLAN: She is POD#2 from L fem endart, L fem-peroneal bypass with cadaver graft, and left sartorius flap. Vascular exam is improved and satisfactory. Incision sites are satisfactory, prevena vac dressing is maintaining good seal. Her Hgb did drift downward; no signs of active bleeding and no hematoma at the incision sites by exam. Discussed with Dr. Merchant; will discontinue low-dose heparin drip at this time, continue ASA and Plavix, Dr. Merchant has ordered 1 unitPRBC. Will start lovenox for DVT prophylaxis. From surgical perspective, ready for discharge when otherwise medically stable per primary team. Plan at this time is hopefully for patient to discharge to TCU. Will continue to follow. Charges/Coding Procedures Integumentary 111xxx-113xx: 79451 Global Visit 05/28/25 0951 <Electronically signed by Abena VYAS> Cosigner Signature (if applicable): 05/28/25 1213 <Electronically signed by Russell Clement MD> CC: ~ Signed [facility] Work Phone: 1(158) 473-808807-10-2025 Progress note Author Maddie Merchant [facility] Note Date/Time May 28, 2025 11:3 1am [facility] Medical Records Department [address] [place] [address] Progress Note - Hospitalist 05/28/25 0651 MR#: [id number] Acct: [id number] Name: GELY FULLER Melinda Rep #:[id number] : 1950 75 From: Maddie Merchant MD PCP: Dr. Rishi Vasquez, DO Status:AD M IN Location: ICU CVICU 3-1 Reason for Visit Reason for Visit: Diagnoses Type 2 diabetes mellitus with foot ulcer (05/25/25) Atherosclerosis of [place] arteries of right leg with ulceration of heel and midfoot (05/25/25) Atherosclerosis of [place] arteries of left leg with ulceration of heel and midfoot (05/25/25) Other specified peripheral vascular diseases (05/25/25) Non-pressure chronic ulcer of other part of unspecified foot with unspecified severity (05/25/25) Non-pressure chronic ulcer of other part of right foot with fat layer exposed (05/25/25) 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 foot with fat layer exposed (05/25/25) Weakness (05/25/25) Unspecified fall, initial encounter (05/25/25) Subjective Subjective Patient with no acute events overnight per self and per nursing report. Vital signs remained stable overnight. AM hemoglobin 7.3 and given underlying cardiac history and recent vascular surgery decision for 1 unit PRBC administration which has been initiated. Patient with no bleeding from any of the operative incision sites. Wound VAC with appropriate material in the canister. Patient does reports some discomfort to the left calf but otherwise denies any severe pain. Plan of care discussed which included transition out of the ICU and awaiting correction facility bed at this time given stabilization medically. Patient denies fevers, chills, nausea, emesis, abdominal pain, chestpain or dyspnea. Objective Data Objective Data Vital Signs: Vital Signs Temp Pulse Resp BP Pulse Ox O2 Del Method O2 Flow Rate 97.6 F L 76 15 119/46 L 95 Room Air 2 05/28/25 00:00 05/28/25 06:00 05/28/25 06:00 05/28/25 06:00 05/28/25 06:00 05/28/25 06:00 05/27/25 12:59 Oxygen Flow Rate (L/min) 2 Oxygen Delivery Method Room Air Weight: 159 lb 6.307 oz Body Mass Index (BMI) 25.7 Intake & Output: Intake and Output for Last 24 Hours 05/26/25 05/27/25 05/28/25 23:59 23:59 23:59 Intake Total 182.5 / 182.5 377.34 / 377.34 Output Total 3400 / 3650 950 / 1200 450 / 450 Balance -3217.5 / -3467.5 -572.66 / -822.66 -450 / -450 Lab / Micro Data 05/28/25 03:50 05/27/25 03:05 Labs: Laboratory Results - last 24 hr 05/26/25 20:37: POC Glucose 221 H 05/27/25 08:14: POC Glucose 237 H 05/27/25 11:58: POC Glucose 264 H 05/27/25 16:06: POC Glucose 226 H 05/27/25 21:27: POC Glucose 220 H 05/28/25 03:50: WBC 9.7, RBC 2.51 L, Hgb 7.3 L, Hct 23.0 L, MCV 91.6, MCH 29.1, MCHC 31.7 L, RDW Std Deviation 54.3 H, RDW Coeff of Jorgito 16.1 H, Plt Count 173, MPV 9.8, Immature Gran % (Auto) 2.100 H, Neut % (Auto) 77.8 H, Lymph % (Auto) 12.6 L, Lea % (Auto) 6.5, Eos % (Auto) 0.7, Baso % (Auto) 0.3, Absolute Neuts (auto) 7.6, Absolute Lymphs (auto) 1.22, Nucleated RBC % 0, APTT 63.1 H Physical Exam Narrative Physical Examination: General: Awake, alert, oriented x 3 and cooperative, seated upright in the ICU bed, mildly fatigued but more alert the day prior, noting some left calf discomfort only. Skin: Normal color, normal turgor, no icterus, no cyanosis except for occasionalstage ecchymoses, abrasion, bilateral lower extremity dressings in place, statuspost recent left lower extremity vascular intervention, VAC in place to the leftgroin with good suction, dressings in place to distal extremities with no drainage. HEENT: AT/NC, EOMI, PERRLA, MMM. Lungs: Mildly diminished, greater bases, proper effort, no rales, ronchi or wheezing. Heart: Regular rate with regular rhythm; no gallop, rub audible. Abdomen: Soft, NTTP, ND, normal BS. Extremities: No cyanosis, no clubbing, see skin, bilateral lower extremity dressings, see skin. Neurological: Patient awake, alert, oriented as noted, cognitive function intact; pupils equally reactive to light and accommodation, cranial nerves grossly normal, moving all 4 extremities, mildly tremulous, no obvious focal deficits, strength improved, moderately to severely globally decreased given recent intervention. Psychiatric: Affect appears less fatigued, more interactive, no acute evidence of depressive or anxiety feelings. Assessment & Plan Assessment/Plan (1) Fall: (2) Generalized weakness: PLAN: Plan The patient is a 75 y/o F w/ PMHx: CAD, PAD s/p peripheral angioplasty, Diabetesmellitus type II with Chronic neuropathy, Anxiety and Depression, HTN, HLD, Former tobacco use, Chronic normocytic anemia/Fe deficiency anemia, CKD stage III unclear subtype per GFR trending, chronic bilateral lower extremity diabeticulcerations/wounds following with Dr. Irene status post recent 05/20/2025 surgical intervention with discharge 05/21/2025 unfortunately with refusal for skilled placement as there was not a TCU bed available at that time who then returned 05/22/2025 with generalized weakness and mechanical fall while attempting to transfer unable to get herself up prompting return to the hospital for evaluation and care. #1. Adult FTT, Debility with patient deferral of recommended SNF placement following recent discharge w/ return to home with mechanical fall complicated byRecent bilateral lower extremity diabetic wounds with significantly MRSA infected left lower diabetic wound with associated MRSA bacteremia: Status post 05/20/2025 incision of the bone cortex of the left ankle, surgical skin grafting to the left leg, surgical skin grafting to the left foot, application of graft substitute, wound culture from OR with MRSA, discharged on linezolid, will continue antibiotic regimen, continue podiatry involvement as well as continued infectious disease involvement and vascular surgery as noted, most recent podiatry evaluation 05/24/2025 with noted plan for continued Adaptic placement to the graft area with overlapping dry sterile dressing and single layer of Man compression bandage with plan for continued change every 3 days. Podiatry noteddressings may be removed if needed temporarily however replaced immediately following as noted. Plan for transitional care unit transition once precertification obtained potentially in the next 24 to 40 hours given cleared by vascular surgery as noted #2. #2. Peripheral vascular disease, PAD with significant bilateral lower extremitywounds and ulceration: Patient following with Dr. Clement, most recent imaging noted during previous presentation also with CTA demonstrating significant calcific femoral disease bilaterally with angiogram evaluation of the tibial vessels. 05/26/25 left femoral endarterectomy, left femoral peroneal bypass with reversed GSV, cadaver left sartorius flap per Dr. Clement. Patient remains in the ICU with plan for transition out per vascular surgery preference 05/28/2025. Continue aspirin, Plavix, statin, hypertensive regimen however will defer to vascular surgery for adjustments or if temporary hold as needed given recent intervention if any bleeding concerns arise. 05/26/2025 postoperative hemoglobin 9.6, 05/27/25 AM hemoglobin 8.5-> 05/28/25 hemoglobin 7.3, given recent vascular surgery to be cautious we will administer 1 unit PRBC and plan repeat hemoglobinapproximately 1 hour following completion. Low-dose heparin discontinued in agreement with vascular surgery. Per discussion with vascular surgery 05/28/2025patient de-escalated to medical surgical status and cleared for transition to TCU once precertification obtained. VAC care and vascular instructions/follow-upcare will be addressed per vascular service. #3. Acute GP Organism Complicated Urinary Tract Infection: Gonzalez catheter placed in the OR with mildly concerning output, urinalysis and urine culture have been requested but urinalysis is concerning appearing, UCx w/ preliminary GP organism, will continue IV Rocephin, 05/28/25 d/c gonzalez, will continue to monitor I/Os, transition to focused antibiotic therapy once species and sensitivities result or if not marked growth d/c abx therapy. #4. Chronic Kidney Disease Stage III, unclear subtype or GFR trending: Admission BUN/Cr 56/1.22, GFR 47, baseline renal function primarily 1.3-1.5 but did have recent presentation with acute kidney injury with creatinine up to 1.96, resolved currently and had felt at that time to be secondary to ATN, repeat BMP in AM. 05/27/2025 BUN/creatinine 36/1.09, GFR 54->05/28/25 BMP pending. #5. Diabetes mellitus type II complicated by #1 with chronic diabetic wounds and chronic diabetic neuropathy: Hold oral home regimen, maintain on ADA diet, awaiting vascular surgery wanted percent confirmation of intervention 05/26/2025, will allow n.p.o. status per their timeline, will maintain on accu checks w/ ISS, continue home pregabalin regimen. #6. Hypertension: Continue home regimen including metoprolol, amlodipine with hold parameters as needed, PRN hydralazine. #7. Hyperlipidemia: Continue home statin therapy. #8. Chronic normocytic anemia/iron deficiency anemia: Admission hemoglobin 9.5,MCV 90.2, baseline hemoglobin has vacillated but appears primarily 9 range, continue to closely trend CBC, if dropping further will investigate. Will continue iron supplementation. 05/27/25 hemoglobin 8.5-> 05/28/25 hemoglobin 7.3, given recent vascular surgery to be cautious we will administer 1 unit PRBC and plan repeat hemoglobin approximately 1 hour following completion. Low-dose heparin discontinued in agreement with vascular surgery. #9. Anxiety and depression: Noted history in the chart, not on regimen per current list, continue to monitor and follow-up outpatient as previously arranged. #10. Former tobacco use: Encourage continued tobacco cessation. #11. DVT prophylaxis: Held heparin preoperatively. Per discussion with vascular surgery we will plan 05/26/2025 evening initiation of the low-dose heparin drip continuously with no bolus. #12. CODE status: Patient VICTOR MANUEL is her sister. Full Code status. Charges/Coding Visit Charges Inpatient E&M: 07105 Subs Hosp L2 05/28/25 1131 <Electronically signed by Maddie Merchant MD> Cosigner Signature (if applicable): CC: ~ Signed [facility] Work Phone: 1(201) 784-141107-10-2025 Progress note Author Abena Fiore [facility] Note Date/Time May 28, 2025 7:26 am [facility] Medical Records Department [address] [place] [address] Progress Note - Surgery 05/27/25 1010 MR#: [id number] Acct: [id number] Name: GELY FULLER Rep #:[id number] : 1950 75 From: Abena VYAS PCP: Dr. Rishi Vasquez, DO Status:AD M IN Location: ICU CVICU20 3-1 Subjective Subjective I saw patient this morning resting comfortably in bed. She reported some discomfort around the groin access site but otherwise had no complaints. There was report of one episode of possible coffee ground emesis overnight, no emesis since. She has been hemodynamically stable, Hgb was overall stable this morning. Objective Data Objective Data Vital Signs: Vital Signs Temp Pulse Resp BP Pulse Ox O2 Del Method O2 Flow Rate 97.6 F L 82 18 120/52 L 100 Nasal Cannula 1 05/27/25 03:00 05/27/25 08:31 05/27/25 07:00 05/27/25 08:31 05/27/25 07:00 05/27/25 07:00 05/27/25 07:00 Oxygen Flow Rate (L/min) 1 Oxygen Delivery Method Nasal Cannula Weight: 149 lb 11.102 oz Body Mass Index (BMI) 24.1 Intake & Output: Intake and Output for Last 24 Hours 05/25/25 05/26/25 05/27/25 23:59 23:59 23:59 Intake Total 900 / 900 182.5 / 182.5 Output Total 3400 / 3650 500 / 500 Balance 900 / 900 -3217.5 / -3467.5 -500 / -500 Lab / Micro Data 05/27/25 03:05 05/27/25 03:05 Labs: Laboratory Results - last 24 hr 05/26/25 04:52: Blood Type A POSITIVE, Antibody Screen NEGATIVE, Crossmatch See Detail 05/26/25 07:22: Activated Clotting Time 112 05/26/25 09:23: Activated Clotting Time 245 H 05/26/25 15:13: WBC 16.0 H, RBC 3.28 L, Hgb 9.6 L, Hct 29.8 L, MCV 90.9, MCH 29.3, MCHC 32.2, RDW Std Deviation 51.2 H, RDW Coeff of Jorgito 15.4 H, Plt Count 241, MPV 11.0, Immature Gran % (Auto) 2.700 H, Neut % (Auto) 86.8 H, Lymph % (Auto) 5.2 L, Lea % (Auto) 4.3, Eos % (Auto) 0.4, Baso % (Auto) 0.6, Absolute Neuts (auto) 13.9 H, Absolute Lymphs (auto) 0.83, Nucleated RBC % 0 05/26/25 15:43: POC Glucose 193 H 05/26/25 15:56: Urine Color Yellow, Urine Clarity Turbid, Urine pH 5.0, Ur Specific [place] 1.025, Urine Protein 100 H, Urine Glucose (UA) Normal, Urine Ketones 5 H, Urine Occult Blood 50 H, Urine Nitrite Negative, Urine Bilirubin Negative, Urine Urobilinogen Normal, Ur Leukocyte Esterase 500 H, Urine RBC 5-10SEEN, Urine WBC >100 SEEN, Ur Squamous Epith Cells 5-10 SEEN, Amorphous Sediment2+, Urine Bacteria 1+, Urine Mucus 0 SEEN, Urine Yeast 1+ 05/26/25 17:12: POC Glucose 182 H 05/26/25 20:37: POC Glucose 221 H 05/27/25 03:05: WBC 13.2 H, RBC 2.93 L, Hgb 8.5 L, Hct 26.6 L, MCV 90.8, MCH 29.0, MCHC 32.0, RDW Std Deviation 52.5 H, RDW Coeff of Jorgito 15.9 H, Plt Count 239, MPV 9.9, Immature Gran % (Auto) 2.600 H, Neut % (Auto) 83.8 H, Lymph % (Auto) 7.3 L, Lea % (Auto) 5.8, Eos % (Auto) 0.1, Baso % (Auto) 0.4, Absolute Neuts (auto) 11.0 H, Absolute Lymphs (auto) 0.96, Nucleated RBC % 0, PT 14.5, INR 1.1, Sodium 141, Potassium 4.9, Chloride 108, Carbon Dioxide 19.3 L, Anion Gap 14, BUN 36 H, Creatinine 1.09, Estim Creat Clear Calc 47.19 L, Est GFR (MDRD) Non-Af 54 L, BUN/Creatinine Ratio 32.6 H, Glucose 208 H, Calcium 8.5 05/27/25 08:14: POC Glucose 237 H Physical Exam Const alert and oriented x3 General Appearance: cooperative HEENT normocephalic, head/scalp atraumatic, hearing grossly normal bilaterally, external ears normal and external nose normal Eyes EOMs intact bilaterally General Eye: normal appearance of both eyes Neck General: normal visual inspection and trachea midline Resp normal respiratory effort, normal air movement, no retractions and no use of accessory muscles Effort and Inspection: able to speak in complete sentences; Negative for labored, grunting or stridor Cardio regular rate and regular rhythm Extremity Extremity Narrative: L groin incision site with Prevena vac dressing intact, maintaining good seal. Soft to palpation, no apparent hematoma. L leg incision site with skin glue intact, no dehiscence/edema/erythema/drainage L DP/PT with strong monophasic doppler signals Skin no rashes or lesions noted Wounds: wounds noted Neuro oriented x3, CN's II-XII intact bilaterally, moves all extremities and no focal motor deficits Speech: speech normal Psych mental status grossly normal Appearance: grossly normal Attitude: calm and engaged Activity / Motor Behavior: appropriate eye contact Speech: normal speech Mood & Affect: euthymic mood Assessment & Plan Assessment/Plan (1) Peripheral vascular occlusive disease: PLAN: She is POD#1 from L fem endart, L fem-peroneal bypass with cadaver graft, and left sartorius flap. Vascular exam is improved and satisfactory. Incision sites are satisfactory, prevena vac dressing is maintaining good seal. Continue low-dose heparin drip for now as long as Hgb remains stable; plan to discontinue this at discharge. Continue ASA and Plavix, these will be continued at discharge. OK to d/c gonzalez and arterial line. Progress diet as tolerated. Plan to work withPT/OT for evaluations, anticipating discharge to TCU if able to accept. From surgical standpoint, anticipate she will be appropriate for discharge tomorrow. Charges/Coding Procedures Integumentary [id number]: 50035 Global Visit 05/27/25 1640 <Electronically signed by Abena VYAS> Cosigner Signature (if applicable): 05/28/25 0726 <Electronically signed by Russell Clement MD> CC: ~ Signed [facility] Work Phone: [phone] 125-253707-09-2025 Progress note Author Maddie Merchant [facility] Note Date/Time May 27, 2025 10:02 am [facility] Medical Records Department [address] [place] [address] Progress Note - Hospitalist 05/27/25 0647 MR#: [id number] Acct: [id number] Name: GELY FULLER Rep #:[id number] : 1950 75 From: Maddie Merchant MD PCP: Dr. Rishi Vasquez, DO Status:AD M IN Location: ICU CVICU 3-1 Reason for Visit Reason for Visit: Diagnoses Type 2 diabetes mellitus with foot ulcer (05/25/25) Atherosclerosis of [place] arteries of right leg with ulceration of heel and midfoot (05/25/25) Atherosclerosis of [place] arteries of left leg with ulceration of heel and midfoot (05/25/25) Other specified peripheral vascular diseases (05/25/25) Non-pressure chronic ulcer of other part of unspecified foot with unspecified severity (05/25/25) Non-pressure chronic ulcer of other part of right foot with fat layer exposed (05/25/25) 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 foot with fat layer exposed (05/25/25) Weakness (05/25/25) Unspecified fall, initial encounter (05/25/25) Subjective Subjective Patient with no acute events overnight per self and per nursing report. Patientremains in the ICU with preference per vascular surgery to continue ICU status until 05/28/2025. Patient did have Gonzalez placed day prior with surgical intervention and as noted previously urine looks concerning therefore urinalysisand urine culture were sent and patient appears to have likely a urinary tract infection thus IV Rocephin was initiated based on previous cultures in addition to patient ongoing linezolid. Patient notes she is feeling improved and did sleep well. She does report bilateral lower extremity discomfort but it is not severe and more of an aching. Pulse Doppler checks this morning were appropriately positive. Patient denies fevers, chills, nausea, emesis, abdominal pain, chest pain or dyspnea. Objective Data Objective Data Vital Signs: Vital Signs Temp Pulse Resp BP Pulse Ox O2 Del Method O2 Flow Rate 97.6 F L 84 15 112/47 L 100 Nasal Cannula 1 05/27/25 03:00 05/27/25 06:00 05/27/25 06:00 05/27/25 06:00 05/27/25 05:00 05/27/25 06:00 05/27/25 06:00 Oxygen Flow Rate (L/min) 1 Oxygen Delivery Method Nasal Cannula Weight: 149 lb 11.102 oz Body Mass Index (BMI) 24.1 Intake & Output: Intake and Output for Last 24 Hours 05/25/25 05/26/25 05/27/25 23:59 23:59 23:59 Intake Total 900 / 900 182.5 / 182.5 Output Total 3400 / 3650 500 / 500 Balance 900 / 900 -3217.5 / -3467.5 -500 / -500 Lab / Micro Data 05/27/25 03:05 05/27/25 03:05 Labs: Laboratory Results - last 24 hr 05/26/25 04:52: Blood Type A POSITIVE, Antibody Screen NEGATIVE, Crossmatch See Detail 05/26/25 07:22: Activated Clotting Time 112 05/26/25 09:23: Activated Clotting Time 245 H 05/26/25 15:13: WBC 16.0 H, RBC 3.28 L, Hgb 9.6 L, Hct 29.8 L, MCV 90.9, MCH 29.3, MCHC 32.2, RDW Std Deviation 51.2 H, RDW Coeff of [place] 15.4 H, Plt Count 241, MPV 11.0, Immature Gran % (Auto) 2.700 H, Neut % (Auto) 86.8 H, Lymph % (Auto) 5.2 L, Lea % (Auto) 4.3, Eos % (Auto) 0.4, Baso % (Auto) 0.6, Absolute Neuts (auto) 13.9 H, Absolute Lymphs (auto) 0.83, Nucleated RBC % 0 05/26/25 15:43: POC Glucose 193 H 05/26/25 15:56: Urine Color Yellow, Urine Clarity Turbid, Urine pH 5.0, Ur Specific [place] 1.025, Urine Protein 100 H, Urine Glucose (UA) Normal, Urine Ketones 5 H, Urine Occult Blood 50 H, Urine Nitrite Negative, Urine Bilirubin Negative, Urine Urobilinogen Normal, Ur Leukocyte Esterase 500 H, Urine RBC 5-10SEEN, Urine WBC >100 SEEN, Ur Squamous Epith Cells 5-10 SEEN, Amorphous Sediment2+, Urine Bacteria 1+, Urine Mucus 0 SEEN, Urine Yeast 1+ 05/26/25 17:12: POC Glucose 182 H 05/27/25 03:05: WBC 13.2 H, RBC 2.93 L, Hgb 8.5 L, Hct 26.6 L, MCV 90.8, MCH 29.0, MCHC 32.0, RDW Std Deviation 52.5 H, RDW Coeff of [place] 15.9 H, Plt Count 239, MPV 9.9, Immature Gran % (Auto) 2.600 H, Neut % (Auto) 83.8 H, Lymph % (Auto) 7.3 L, Lea % (Auto) 5.8, Eos % (Auto) 0.1, Baso % (Auto) 0.4, Absolute Neuts (auto) 11.0 H, Absolute Lymphs (auto) 0.96, Nucleated RBC % 0, PT 14.5, INR 1.1, Sodium 141, Potassium 4.9, Chloride 108, Carbon Dioxide 19.3 L, Anion Gap 14, BUN 36 H, Creatinine 1.09, Estim Creat Clear Calc 47.19 L, Est GFR (MDRD) Non-Af 54 L, BUN/Creatinine Ratio 32.6 H, Glucose 208 H, Calcium 8.5 Physical Exam Narrative Physical Examination: General: Awake, alert, oriented x 3 and cooperative, seated upright in the ICU bed, fatigued and notes some bilateral lower extremity distal pain but not severe. Skin: Normal color, normal turgor, no icterus, no cyanosis except for occasionalstage ecchymoses, abrasion, bilateral lower extremity dressings in place, statuspost recent left lower extremity vascular intervention, present for Doppler ultrasound assessment both of which audible. HEENT: AT/NC, EOMI, PERRLA, MMM. Lungs: Mildly diminished, greater bases, proper effort, no rales, ronchi or wheezing. Heart: Regular rate with regular rhythm; no gallop, rub audible. Abdomen: Soft, NTTP, ND, normal BS. Extremities: No cyanosis, no clubbing, see skin, bilateral lower extremity dressings, see skin. Neurological: Patient awake, alert, oriented as noted, cognitive function intact; pupils equally reactive to light and accommodation, cranial nerves grossly normal, moving all 4 extremities, mildly tremulous, no obvious focal deficits, strength severely globally decreased given recent intervention. Psychiatric: Affect appears fatigued otherwise normal, no acute evidence of depressive or anxiety feelings. Assessment & Plan Assessment/Plan (1) Fall: (2) Generalized weakness: PLAN: Plan The patient is a 75 y/o F w/ PMHx: CAD, PAD s/p peripheral angioplasty, Diabetesmellitus type II with Chronic neuropathy, Anxiety and Depression, HTN, HLD, Former tobacco use, Chronic normocytic anemia/Fe deficiency anemia, CKD stage III unclear subtype per GFR trending, chronic bilateral lower extremity diabeticulcerations/wounds following with Dr. Irene status post recent 05/20/2025 surgical intervention with discharge 05/21/2025 unfortunately with refusal for skilled placement as there was not a TCU bed available at that time who then returned 05/22/2025 with generalized weakness and mechanical fall while attempting to transfer unable to get herself up prompting return to the hospital for evaluation and care. #1. Adult FTT, Debility with patient deferral of recommended SNF placement following recent discharge w/ return to home with mechanical fall complicated byRecent bilateral lower extremity diabetic wounds with significantly MRSA infected left lower diabetic wound with associated MRSA bacteremia: Status post 05/20/2025 incision of the bone cortex of the left ankle, surgical skin grafting to the left leg, surgical skin grafting to the left foot, application of graft substitute, wound culture from OR with MRSA, discharged on linezolid, will continue antibiotic regimen, continue podiatry involvement as well as continued infectious disease involvement and vascular surgery as noted, most recent podiatry evaluation 05/24/2025 with noted plan for continued Adaptic placement to the graft area with overlapping dry sterile dressing and single layer of Man compression bandage with plan for continued change every 3 days. Podiatry noteddressings may be removed if needed temporarily however replaced immediately following as noted. PT/OT/case management consulted for discharge planning. Patient is only willing to transition to [facility] if it is TCU and bed has been requested it is unclear if it will be made available. #2. Peripheral vascular disease, PAD with significant bilateral lower extremitywounds and ulceration: Patient following with Dr. Clement, most recent imaging noted during previous presentation also with CTA demonstrating significant calcific femoral disease bilaterally with angiogram evaluation of the tibial vessels. 05/26/25 left femoral endarterectomy, left femoral peroneal bypass with reversed GSV, cadaver left sartorius flap per Dr. Clement. Patient remains in the ICU with plan for transition out per vascular surgery preference 05/28/2025. Patient initiated on low-dose heparin drip postoperatively in the evening and will defer to preference to alteration to vascular surgery. Continue aspirin, Plavix, statin, hypertensive regimen however will defer to vascular surgery for adjustments or if temporary hold as needed given recent intervention if any bleeding concerns arise. 05/26/2025 postoperative hemoglobin 9.6, 05/27/25 AM hemoglobin 8.5, continue to trend. #3. Acute Complicated Urinary Tract Infection: Gonzalez catheter placed in the OR with mildly concerning output, urinalysis and urine culture have been requested but urinalysis is concerning appearing, will continue IV Rocephin, will plan to de-escalate Gonzalez in the next 24 hours, continue to monitor I/Os, transition to focused antibiotic therapy once species and sensitivities result. #4. Chronic Kidney Disease Stage III, unclear subtype or GFR trending: Admission BUN/Cr 56/1.22, GFR 47, baseline renal function primarily 1.3-1.5 but did have recent presentation with acute kidney injury with creatinine up to 1.96, resolved currently and had felt at that time to be secondary to ATN, repeat BMP in AM. 05/27/2025 BUN/creatinine 36/1.09, GFR 54. #5. Diabetes mellitus type II complicated by #1 with chronic diabetic wounds and chronic diabetic neuropathy: Hold oral home regimen, maintain on ADA diet, awaiting vascular surgery wanted percent confirmation of intervention 05/26/2025, will allow n.p.o. status per their timeline, will maintain on accu checks w/ ISS, continue home pregabalin regimen. #6. Hypertension: Continue home regimen including metoprolol, amlodipine with hold parameters as needed, PRN hydralazine. #7. Hyperlipidemia: Continue home statin therapy. #8. Chronic normocytic anemia/iron deficiency anemia: Admission hemoglobin 9.5,MCV 90.2, baseline hemoglobin has vacillated but appears primarily 9 range, continue to closely trend CBC, if dropping further will investigate. Will continue iron supplementation. 05/26/2025 hemoglobin 9.2, MCV 91.5--> postoperative 05/26/25 hemoglobin 9.6, 05/27/25 AM hemoglobin 8.5, continue to trend. #9. Anxiety and depression: Noted history in the chart, not on regimen per current list, continue to monitor and follow-up outpatient as previously arranged. #10. Former tobacco use: Encourage continued tobacco cessation. #11. DVT prophylaxis: Held heparin preoperatively. Per discussion with vascular surgery we will plan 05/26/2025 evening initiation of the low-dose heparin drip continuously with no bolus. #12. CODE status: Patient VICTOR MANUEL is her sister. Full Code status. Charges/Coding Visit Charges Inpatient E&M: 94475 Subs Hosp L3 05/27/25 1002 <Electronically signed by Maddie Merchant MD> Cosigner Signature (if applicable): CC: ~ Signed [facility] Work Phone: 1(678) 621-715707-09-2025 Consult note Author Zachary Rodriguez [facility] Note Date/Time May 27, 2025 12:36 am [facility] Medical Records Department [address] [place] [address] Anesthesia Postop Eval II 05/27/25 0035 MR#: [id number] Acct: [id number] Name: GELY FULLER Melinda Rep #:[id number] : 1950 75 From: Zachary Rodriguez MD PCP: Dr. Rishi Vasquez, DO Status:AD M IN Y Race: C Location: ICU CVICU 203-1 Anesthesia Postop Eval I Sum Postop Eval Completion status Anesthesia document: Postop Eval 1 completed: No Anesthesia Postop Eval I Summary Anesthesia Postop Eval I Summary: Anesthesia Postop Eval I: Assessment Summary Airway patent Yes 05/26/25 14:39 [email or web address] Spontaneous unlabored No 05/26/25 14:39 [email or web address] respirations Mental status Awake 05/26/25 14:39 [email or web address] nausea No 05/26/25 14:39 [email or web address] Vomiting No 05/26/25 14:39 [email or web address] Anesthesia Postop Eval I: Fluid Summary Crystalloid volume administer 2,500 05/26/25 14:39 [email or web address] (ml) Colloids volume administered ( ml) Blood Product volume 300 05/26/25 14:39 [email or web address] administered (ml) Total IV fluid infused 2,800 05/26/25 14:39 [email or web address] Anesthesia Postop Eval I: Summary Notes Anesthesia Complication No 05/26/25 14:39 [email or web address] Anesthesia Complication Comment: Post-operative progress note Anesthesia: Postop Eval II Evaluation Mental status: Awake and Calm Pain Level: 1 nausea: No Vomiting: No Progress Note Post-operative progress note: Breathing easily. Complications Anesthesia Complication: No 05/27/25 0036 <Electronically signed by Zachary [email or web address] MD> Date _ Zachary Rodriguez MD Cosigner Signature: Date CC: ~ Signed [facility] Work Phone: 1(223) 865-772207-08-2025 Progress note Author Maddie Merchant [facility] Note Date/Time May 26, 2025 3:53p [facility] Medical Records Department [address] [place] [address] Progress Note - Hospitalist 05/26/25 0657 MR#: [id number] Acct: [id number] Name: GELY FULLER Rep #:[id number] : 1950 75 From: Maddie Merchant MD PCP: Dr. Rishi Vasquez, DO Status:AD M IN Location: ICU CVICU20 3-1 Reason for Visit Reason for Visit: Diagnoses Type 2 diabetes mellitus with foot ulcer (05/25/25) Atherosclerosis of [place] arteries of right leg with ulceration of heel and midfoot (05/25/25) Atherosclerosis of [place] arteries of left leg with ulceration of heel and midfoot (05/25/25) Other specified peripheral vascular diseases (05/25/25) Non-pressure chronic ulcer of other part of unspecified foot with unspecified severity (05/25/25) Non-pressure chronic ulcer of other part of right foot with fat layer exposed (05/25/25) 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 foot with fat layer exposed (05/25/25) Weakness (05/25/25) Unspecified fall, initial encounter (05/25/25) Subjective Subjective Patient with no acute events overnight per self and per nursing report. Patienttransition from medical surgical floor to operative intervention per Dr. Clement and reevaluated in PACU. In PACU patient is still very lethargic and fatigued but is awakening. Patient status post left femoral endarterectomy with a left femoral peroneal bypass with reversed GSV and cadaver left sartorius flap. Patient per discussion with Dr. Clement did have blood loss in the OR and received 1 unit PRBC to be cautious as well as Cell Saver usage. Patient previously earlier in the day had denied fevers, chills, nausea, emesis, abdominal pain, chest pain or dyspnea. Currently in PACU upon reevaluation fatigued and not able to answer any specific questions. Objective Data Objective Data Vital Signs: Vital Signs Temp Pulse Resp BP Pulse Ox O2 Del Method 97.9 F 62 16 149/63 H 97 Room Air 05/26/25 06:39 05/26/25 06:39 05/26/25 06:39 05/26/25 06:39 05/26/25 06:39 05/26/25 06:39 Oxygen Delivery Method Room Air Weight: 162 lb 4.8 oz Body Mass Index (BMI) 26.2 Intake & Output: Intake and Output for Last 24 Hours 05/24/25 05/25/25 05/26/25 23:59 23:59 23:59 Intake Total 950 / 950 900 / 900 Output Total 1250 / 1250 Balance 950 / 950 900 / 900 -1250 / -1250 Lab / Micro Data 05/26/25 04:52 05/26/25 04:52 Labs: Laboratory Results - last 24 hr 05/25/25 04:31: Sodium 142, Potassium 4.2, Chloride 110 H, Carbon Dioxide 20.2 L, Anion Gap 12, BUN 38 H, Creatinine 1.11, Estim Creat Clear Calc 46.34 L, Est GFR (MDRD) Non-Af 52 L, BUN/Creatinine Ratio 34.0 H, Glucose 137 H, Calcium 9.0 05/25/25 06:47: POC Glucose 134 H 05/25/25 11:23: POC Glucose 263 H 05/25/25 13:15: Blood Type A POSITIVE, Antibody Screen NEGATIVE 05/25/25 16:35: POC Glucose 185 H 05/25/25 21:29: POC Glucose 140 H 05/26/25 04:52: WBC 6.3, RBC 3.19 L, Hgb 9.2 L, Hct 29.2 L, MCV 91.5, MCH 28.8, MCHC 31.5 L, RDW Std Deviation 52.3 H, RDW Coeff of [place] 15.6 H, Plt Count 254, MPV 10.5, Sodium 141, Potassium 4.3, Chloride 109 H, Carbon Dioxide 20.2 L, Anion Gap 12, BUN 39 H, Creatinine 1.16, Estim Creat Clear Calc 44.34 L, Est GFR(MDRD) Non-Af 50 L, BUN/Creatinine Ratio 34.0 H, Glucose 119 H, Calcium 9.3 05/26/25 05:04: POC Glucose 116 H Physical Exam Narrative Physical Examination: General: Awake, alert, oriented x 3 and cooperative, laying in MS bed, fatigued,plan for transition shortly down to the OR for surgical intervention with vascular surgery. Skin: Normal color, normal turgor, no icterus, no cyanosis except for occasionalstage ecchymoses, abrasion, bilateral lower extremity diabetic foot wounds with currently dressings in place per podiatry with no drainage. HEENT: AT/NC, EOMI, PERRLA, MMM. Lungs: Mildly diminished, greater bases, proper effort, no rales, ronchi or wheezing. Heart: Regular rate with regular rhythm; no gallop, rub audible. Abdomen: Soft, NTTP, ND, normal BS. Extremities: No cyanosis, no clubbing, see skin, bilateral lower extremity foot wound dressings in place with no drainage. Neurological: Patient awake, alert, oriented as noted, cognitive function intact; pupils equally reactive to light and accommodation, cranial nerves grossly normal, moving all 4 extremities, mildly tremulous, no obvious focal deficits, strength remains moderately to severely globally decreased. Psychiatric: Affect appears fatigued otherwise normal, no acute evidence of depressive or anxiety feelings. PACU reevaluation: In PACU patient's with stable vital signs on monitor, recently transition from the OR therefore still fatigued but awakening, not able to answer orientation questions as of yet. Distal pulses to the left lower extremity intact with Doppler. Dressings in place with no drainage to the left lower extremity. Assessment & Plan Assessment/Plan (1) Fall: (2) Generalized weakness: PLAN: Plan The patient is a 75 y/o F w/ PMHx: CAD, PAD s/p peripheral angioplasty, Diabetesmellitus type II with Chronic neuropathy, Anxiety and Depression, HTN, HLD, Former tobacco use, Chronic normocytic anemia/Fe deficiency anemia, CKD stage III unclear subtype per GFR trending, chronic bilateral lower extremity diabeticulcerations/wounds following with Dr. Irene status post recent 05/20/2025 surgical intervention with discharge 05/21/2025 unfortunately with refusal for skilled placement as there was not a TCU bed available at that time who then returned 05/22/2025 with generalized weakness and mechanical fall while attempting to transfer unable to get herself up prompting return to the hospital for evaluation and care. #1. Adult FTT, Debility with patient deferral of recommended SNF placement following recent discharge w/ return to home with mechanical fall complicated byRecent bilateral lower extremity diabetic wounds with significantly MRSA infected left lower diabetic wound with associated MRSA bacteremia: Status post 05/20/2025 incision of the bone cortex of the left ankle, surgical skin grafting to the left leg, surgical skin grafting to the left foot, application of graft substitute, wound culture from OR with MRSA, discharged on linezolid, will continue antibiotic regimen, continue podiatry involvement as well as continued infectious disease involvement and vascular surgery as noted, most recent podiatry evaluation 05/24/2025 with noted plan for continued Adaptic placement to the graft area with overlapping dry sterile dressing and single layer of Man compression bandage with plan for continued change every 3 days. Podiatry noteddressings may be removed if needed temporarily however replaced immediately following as noted. PT/OT/case management consulted for discharge planning. Patient is only willing to transition to skilled if it is TCU and bed has been requested it is unclear if it will be made available. #2. Peripheral vascular disease, PAD with significant bilateral lower extremitywounds and ulceration: Patient following with Dr. Clement, most recent imaging noted during previous presentation also with CTA demonstrating significant calcific femoral disease bilaterally with angiogram evaluation of the tibial vessels. 05/26/25 left femoral endarterectomy, left femoral peroneal bypass with reversed GSV, cadaver left sartorius flap per Dr. Clement. Patient will transition from PACU to ICU temporarily. Patient to be initiated 05/26/25 PM on low-dose heparin drip without any bolus per discussion with vascular surgery. Will continue aspirin, Plavix, statin, hypertensive regimen however will defer to vascular surgery for adjustments or if temporary hold as needed given recent intervention if any bleeding concerns arise. Repeat hemoglobin following operative intervention pending. #3. Questionable Acute Urinary Tract Infection: Gonzalez catheter placed in the ORwith mildly concerning output, urinalysis and urine culture have been requested. If concerning findings will initiate antibiotic appropriate therapy. Continue to monitor I/Os. #4. Chronic Kidney Disease Stage III, unclear subtype or GFR trending: Admission BUN/Cr 56/1.22, GFR 47, baseline renal function primarily 1.3-1.5 but did have recent presentation with acute kidney injury with creatinine up to 1.96, resolved currently and had felt at that time to be secondary to ATN, repeat BMP in AM. 05/26/2025 BUN/creatinine 39/1.16, GFR 50. #5. Diabetes mellitus type II complicated by #1 with chronic diabetic wounds and chronic diabetic neuropathy: Hold oral home regimen, maintain on ADA diet, awaiting vascular surgery wanted percent confirmation of intervention 05/26/2025, will allow n.p.o. status per their timeline, will maintain on accu checks w/ ISS, continue home pregabalin regimen. #6. Hypertension: Continue home regimen including metoprolol, amlodipine with hold parameters as needed, PRN hydralazine. #7. Hyperlipidemia: Continue home statin therapy. #8. Chronic normocytic anemia/iron deficiency anemia: Admission hemoglobin 9.5,MCV 90.2, baseline hemoglobin has vacillated but appears primarily 9 range, continue to closely trend CBC, if dropping further will investigate. Will continue iron supplementation. 05/26/2025 hemoglobin 9.2, MCV 91.5. Repeat hemoglobin following operative intervention pending. #9. Anxiety and depression: Noted history in the chart, not on regimen per current list, continue to monitor and follow-up outpatient as previously arranged. #10. Former tobacco use: Encourage continued tobacco cessation. #11. DVT prophylaxis: Held heparin preoperatively. Per discussion with vascular surgery we will plan 05/26/2025 evening initiation of the low-dose heparin drip continuously with no bolus. #12. CODE status: Patient VICTOR MANUEL is her sister. Full Code status. Charges/Coding Visit Charges Inpatient E&M: 83297 Subs Hosp L3 05/26/25 155 <Electronically signed by Maddie Merchant MD> Cosigner Signature (if applicable): CC: ~ Signed [facility] Work Phone: 1(965) 102-968007-08-2025 Consult note Author Ricardo IqbalCross [facility] Note Date/Time May 26, 2025 2:39p m [facility] Medical Records Department [address] [place] [address] Anesthesia Postop Eval I 05/26/25 1438 MR#: [id number] Acct: [id number] Name: GELY FULLER Melinda Rep #:[id number] : 1950 75 From: Ricardo PINZON PCP: Dr. Rishi Vasquez, DO Status:AD M IN Y Race: C Location: ICU CVICU 203- Anesthesia: Postop Eval I Current Vital Signs Temperature: 98 F Pulse Rate: 53 Blood Pressure: 148/75 Respiratory Rate: 16 Pulse Ox: 100 Oxygen Delivery Method: Simple Mask Oxygen Flow Rate (L/min): 8 Assessment Airway patent: Yes Spontaneous unlabored respirations: No Mental status: Awake nausea: No Vomiting: No Anesthesia Complication: No Fluid Hydration Crystalloid volume administer (ml): 2,500 Blood Product volume administered (ml): 300 Total IV fluid infused: 2,800 Progress Note Anesthesia document: Postop Eval 1 completed: No 05/26/25 1439 <Electronically signed by Ricardo Deras CRNA> Date _ Ricardo Deras SCHEME TECHNICIAN Cosigner Signature: Date CC: ~ Signed [facility] Work Phone: 1(227) 685-142007-08-2025 Procedure [facility] 05-26-2025 Consult note Author Zachary Rodriguez [facility] Note Date/Time May 26, 2025 6:43a m [facility] Medical Records Department [address] [place] [address] Pre-Anesthesia Evaluation 05/26/25 0635 MR#: [id number] Acct: [id number] Name: GELY FULLER Rep #:[id number] : 1950 75 From: Zachary Rodriguez MD PCP: Dr. Rishi Vasquez, DO Status:AD M IN Y Race: C Location: [facility] -1 ASA Classification* ASA Classification ASA Classification: 4 Assessment & Plan Anesthesia* Anesthesia Assessment Anesthesia [...] anesthesia risk assessments. Anesthesia Type Anesthesia Type: General (Consider LMA versus endotracheal tube intubation.) History Source History Obtained from:: Patient and Chart Anesthesia Focused Assessment* Temperature: 97.9 F Pulse Rate: 62 Blood Pressure: 149/63 Respiratory Rate: 16 Pulse Ox: 97 Oxygen Delivery Method: Room Air Airway Assessment Mouth opens: >3 cm Mallampati Score: IV Teeth Condition: Dentures (Patient has full upper and lower dentures.) Neck Range of motion (ROM): Full ROM Labs Anesthesia Preop lab: CBC WBC 6.3 K/mm3 (4.4-11.0) 05/26/25 04:52 05/26/25 RBC 3.19 M/mm3 (4.2-5.4) L 05/26/25 04:52 05/26/25 Hgb 9.2 g/dL (12.0-15.0) L 05/26/25 04:52 05/26/25 Hct 29.2 % (37-47) L 05/26/25 04:52 05/26/25 Plt Count 254 K/mm3 (150-450) 05/26/25 04:52 05/26/25 CHEMISTRY Potassium 4.3 mmol/L (3.3-5.1) 05/26/25 04:52 05/26/25 Sodium 141 mmol/L (133-145) 05/26/25 04:52 05/26/25 Magnesium 2.5 mg/dL (1.5-2.2) H 05/19/25 06:21 05/19/25 Phosphorus 3.7 mg/dL (2.7-4.5) 05/19/25 06:21 05/19/25 BUN 39 mg/dL (4-19) H 05/26/25 04:52 05/26/25 Creatinine 1.16 mg/dL (0.70-1.20) 05/26/25 04:52 05/26/25 Glucose 119 mg/dL (70-99) H 05/26/25 04:52 05/26/25 POC Glucose 116 mg/dL (74-106) H 05/26/25 05:04 05/26/25 TSH < 0.01 uIU/mL (0.358-3.74) L 02/07/17 09:38 COAG PT 15.5 SECONDS (11.7-14.9) H 05/18/25 05:21 04/21 Pre-Assessment Diagnosis/Proposed Procedure Planned Operative Procedure(s): Left femoral endarterectomy. Left femoral to tibial artery bypass with cadaveric graft. Left sartorius flap. 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 When Was Last Pacemaker Check QUESTION #4 FULL TEXT: You/Your Family Experience fever (hyperthermia) with Anesthesia Last Oral Intake Last Oral intake: Last Oral Intake NPO since 00:00 05/26/25 05:18 Meds taken in AM with sips of Yes 05/26/25 05:18 water? Meds patient instructed to metoprolol 05/26/25 05:18 take am of surgery PONV PONV - wedding planning internship: PONV - wedding planning internship Female HX of Motion Sickness HX of N/V After Surgery Non-Smoker Duration of Surgery greater than 60 minutes Number of Risk Factors PONV Score Height & Weight Height & Weight: Anesthesia: Height & Weight Height 5 ft 6 in 05/23/25 10:49 Weight: 73.618 kg 05/26/25 05:18 Body Mass Index (BMI) 26.2 05/22/25 14:40 Respiratory Assessment Respiratory Assessment - wedding planning internship: Respiratory Tract Infection Hx - wedding planning internship Hx Respiratory Tract Infection No 05/25/25 21:37 STOP Sleep Apnea STOP Sleep Apnea - wedding planning internship: STOP Sleep Apnea - wedding planning internship Hx Hypertension Yes 05/23/25 08:06 Hx Sleep Apnea No 05/22/25 14:40 CPAP No 05/22/25 14:40 BIPAP No 05/22/25 14:40 Do you snore loudly (louder No 05/22/25 14:40 than talking or can be heard Do you often feel tired/ No 05/22/25 14:40 fatigued/ sleepy during daytime? Has anyone observed you stop No 05/22/25 14:40 breathing during sleep? STOP Results Negative 05/22/25 14:40 QUESTION #5 FULL TEXT : Do you snore loudly (louder than talking or can be heard through closed doors)? 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 planning internship Tobacco Use Cigarettes 04/02/24 09:13 Smoking Status Former smoker 05/22/25 14:40 Hx Tobacco Use No 05/22/25 14:40 Years Smoking Packs Smoked per Day Smoking Cessation Date was Yes - quit smoking within 15 05/22/25 14:40 within the last 15 years years Hx Smoking Cessation Date 01/01/13 05/22/25 14:40 Hx Smoking Cessation No 05/22/25 14:40 Counseling Hematologic Medial History Hematologic Hx - wedding planning internship: Hematologic Medical Hx - wellhead pumper Hx of Blood Transfusion Yes 05/22/25 14:40 Hx of Transfusion in last 3 Yes 05/22/25 14:40 Months Date of Last Transfusion (if UNKNOWN 05/22/25 14:40 within last 3 months) Ever experience any problems No 05/22/25 14:40 with transfusion(s)? Specify any problems Hx of Preganancy in last 3 No 05/22/25 14:40 Months Nurse Filling Out Transfusion RKALIJOSE 05/22/25 14:40 & Questions: Date: 05/22/25 05/22/25 14:40 Time: 15:54 05/22/25 14:40 Patient unable to answer at this time (ie. confused, unrespo /Reproduction History /Reproductive History - wedding planning internship: /Reproductive Hx- wedding planning internship Hx Now No 05/25/25 21:37 Gestational Age (in weeks): EDC: Hx Hx Para Hx Section SAB No 05/25/25 21:37 Active Medications Active Medications: Current Medications Generic Name Dose Route Start Last Admin Trade Name Freq PRN Reason Stop Dose Admin Acetaminophen 650 mg 05/22/25 14:40 05/25/25 21:32 Acetaminophen 325 Mg Tablet PO 650 mg Q6H PRN PRN Administration Pain 1-10 Or Fever>100.7 Amlodipine Besylate 5 mg 05/23/25 10:00 05/25/25 09:37 Amlodipine 5 Mg Tablet PO 5 mg DAILY HADLEY Administration Protocol Ascorbic Acid 1,000 mg 05/23/25 12:00 05/25/25 11:28 Ascorbic Acid 500 Mg Tablet PO 1,000 mg LUNCH HADLEY Administration Aspirin 81 mg 05/22/25 22:00 05/25/25 21:32 Aspirin E.C. 81 Mg Tablet PO 81 mg QHS HADLEY Administration Atorvastatin Calcium 10 mg 05/22/25 22:00 05/25/25 21:32 Atorvastatin Calcium 10 Mg Tablet PO 10 mg QHS HADLEY Administration Baclofen 5 mg 05/23/25 11:08 05/25/25 21:32 Baclofen 10 Mg Tablet PO 5 mg Q6H PRN PRN Administration spasms Calamine/Phenol 1 applic 05/24/25 10:00 05/25/25 21:33 Menthol/Lanolin/Calamine/Znox 113 Gm Tube TOPICAL 1 applic BID HADLEY Administration Protocol Calcium Carbonate 500 mg 05/23/25 10:00 05/25/25 09:38 Calcium Carbonate 500 Mg Tablet PO 500 mg DAILY HADLEY Administration Clopidogrel Bisulfate 75 mg 05/23/25 10:00 05/25/25 09:38 Clopidogrel Bisulfate 75 Mg Tablet PO 75 mg DAILY HADLEY Administration Compound Med 2 click 05/25/25 10:30 05/25/25 21:34 Neuropathy Pain Cream Compound 60 Click Tube TOPICAL Not Given BID HADLEY Protocol Ferrous Sulfate 325 mg 05/23/25 12:00 05/25/25 11:28 Ferrous Sulfate 325 Mg Tablet PO 325 mg DAILY@1200 HADLEY Administration Glucagon 1 mg 05/22/25 14:40 Glucagon 1 Mg/Ml Syringe IM X1 PRN Hypoglycemia Protocol Heparin Sodium (Porcine) 5,000 unit 05/22/25 22:00 05/25/25 21:33 Heparin Injection (Vial) 5,000 Unit/Ml Vial SC 5,000 unit Q8 HADLEY Administration Dextrose 250 mls @ 0 mls/hr 05/22/25 14:40 Dextrose 10%-Water IV .Q0M PRN HYPOGLYCEMIA Protocol As Directed Sodium Chloride 250 mls @ 15 mls/hr 05/22/25 14:40 IV .[id number] PRN Saline Flush Sodium Chloride 250 mls @ 15 mls/hr 05/22/25 14:40 IV .[id number] PRN Additional IVPB Infusion Sodium Chloride 250 mls @ 15 mls/hr 05/25/25 14:26 IV .[id number] PRN Saline Flush Sodium Chloride 250 mls @ 15 mls/hr 05/25/25 14:26 IV .[id number] PRN Additional IVPB Infusion Insulin Human Lispro 0 unit 05/22/25 16:00 05/26/25 05:04 Insulin Lispro 100 Unit/Ml Insuln.Pen SC Not Given ACHS HADLEY Protocol Linezolid 600 mg 05/22/25 22:00 05/25/25 21:31 Linezolid 600 Mg Tablet PO 05/31/25 22:01 600 mg BID HADLEY Administration Melatonin 3 mg 05/22/25 14:40 Melatonin 3 Mg Tablet PO QHS PRN PRN INSOMNIA Metoprolol Succinate 12.5 mg 05/23/25 10:00 05/26/25 05:00 Metoprolol(Xl)Succ 25 Mg Tablet PO 12.5 mg DAILY HADLEY Administration Protocol Multivitamins 1 tablet 05/23/25 08:00 05/25/25 09:37 Multivitamins,Therapeutic Tablet PO 1 tablet DAILYCM HADLEY Administration Ondansetron HCl 4 mg 05/22/25 14:40 Ondansetron 4 Mg/2 Ml Vial IV Q8H PRN PRN NAUSEA/VOMITING Pregabalin 100 mg 05/22/25 22:00 05/25/25 21:32 Pregabalin 50 Mg Capsule PO 100 mg TID HADLEY Administration Sodium Chloride 10 - 40 ml 05/22/25 14:40 0.9% Saline Lock 10 Ml Syringe IV UD PRN SALINE FLUSH Sodium Chloride 10 - 40 ml 05/25/25 14:26 0.9% Saline Lock 10 Ml Syringe IV UD PRN SALINE FLUSH PFSH Medical History Type 2 diabetes mellitus with foot ulcer 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 250 1 applic topical DA NHI #15 grams 05/21/25 Unknown Rx unit/gram topical ointment (Santyl) linezolid 600 mg tablet 600 mg PO BID #21 tabs 05/21 Unknown Rx Allergy/AdvReac Type Severity Reaction Status Date / Time Sulfa (Sulfonamide Allergy Unknown Verified 05/22/25 11:05 Antibiotics) Family History Father CAD (coronary artery [...] and no additional complaints, except as documented. 05/26/25 0643 <Electronically signed by Zachary mcguire MD> Date _ Zachary Rodriguez MD Cosigner Signature: Date CC: ~ Signed [facility] Work Phone: 1(247) 962-631407-07-2025 Consult note Author Russell Clement [facility] Note Date/Time May 25, 2025 5:40p [facility] Medical Records Department [address] [place] [address] Consultation - Surgical 05/25/25 4025 MR#: [id number] Acct: [id number] Name: GELY FULLER Rep #:[id number] : 1950 75 From: Russell Clement MD PCP: Dr. 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 She again was unable to get up from floorafter sliding to ground. Her foot wounds have remained stable. 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 1 applic topical DA NHI #15 grams 05/21/25 Unknown Rx unit/gram topical ointment (Santyl) linezolid 600 mg tablet 600 mg PO BID #21 tabs 05/21 Unknown Rx Allergy/AdvReac Type Severity Reaction Status Date / Time Sulfa (Sulfonamide Allergy Unknown Verified 05/22/25 11:05 Antibiotics) Family History Father CAD (coronary artery [...] use caffeine: No ROS Constitutional Constitutional: Reports frequent falls and weakness; Denies chills, fever(s) or lethargy Eyes Eyes: Denies blind spots, change in vision or loss of vision ENT HEENT: Denies bleeding gums, hoarseness or sore throat Cardiovascular Cardiovascular: Denies abdominal pain, bluish discoloration of hand/feet, chest pain with activity, claudication, cold extremities, cyanosis, dyspnea on exertion, erythema on extremities, irregular heart rhythm, leg edema, leg ulcers, numbness in extremities or weakness in extremities Respiratory/Chest Respiratory/Chest: Denies cough, excessive [...] or lymphadenopathy Physical Exam Const alert, oriented x3, no apparent distress and healthy appearing General Appearance: cooperative; Negative for combative or lethargic Orientation / Consciousness: awake Exam Limitations: no limitations HEENT Head and Scalp: normocephalic and atraumatic Eyes EOMs intact bilaterally General Eye: normal appearance of both eyes Neck full ROM General: trachea midline Resp normal respiratory effort and no use of accessory muscles Effort and Inspection: Negative for labored, stridor or audible wheezes Cardio regular rate and regular rhythm Back/Spine Cervical Spine: cervical ROM normal Extremity full ROM, normal capillary refill and no clubbing, cyanosis or edema Skin no rashes or lesions noted Neuro oriented x3, CN's II-XII intact bilaterally, no focal motor deficits and no sensory deficits noted Psych thought process normal, cooperative, affect normal, speech normal and activity/motor behavior normal Lab / Micro Data 05/25/25 04:31 05/25/25 04:31 Labs: Laboratory Results - last 24 hr 05/24/25 22:01: POC Glucose 133 H 05/25/25 04:31: WBC 5.4, RBC 2.98 L, Hgb 8.8 L, Hct 26.6 L, MCV 89.3, MCH 29.5, MCHC 33.1, RDW Std Deviation 50.9 H, RDW Coeff of Jorgito 15.5 H, Plt Count 234, MPV10.6, Sodium 142, Potassium 4.2, Chloride 110 H, Carbon Dioxide 20.2 L, Anion Gap 12, BUN 38 H, Creatinine 1.11, Estim Creat Clear Calc 46.34 L, Est GFR (MDRD) Non-Af 52 L, BUN/Creatinine Ratio 34.0 H, Glucose 137 H, Calcium 9.0 05/25/25 06:47: POC Glucose 134 H 05/25/25 11:23: POC Glucose 263 H 05/25/25 13:15: Blood Type A POSITIVE, Antibody Screen NEGATIVE 05/25/25 16:35: POC Glucose 185 H Charges/Coding Visit Charges Inpatient E&M: 61730 Init Hosp L2 05/25/25 1740 <Electronically signed by Russell Clement MD> Cosigner Signature (if applicable): CC: Dr. Wilberto Suazo, DO; Dr. Rishi Vasquez, DO~ Signed [facility] Work Phone: 1(225) 928-961807-07-2025 Progress note Author Maddie Mercahnt [facility] Note Date/Time May 25, 2025 1:41p m [facility] Medical Records Department [address] [place] [address] Progress Note - Hospitalist 05/25/25714 MR#: [id number] Acct: [id number] Name: GELY FULLER Rep #:[id number] : 1950 75 From: Maddie Merchant MD PCP: Dr. Rishi Vasquez, DO Status:AD M IN Location: CA3 PN952-5 Reason for Visit Reason for Visit: Diagnoses Type 2 diabetes mellitus with foot ulcer (05/22/25) Other specified peripheral vascular diseases (05/22/25) Non-pressure chronic ulcer of other part of unspecified foot with unspecified severity (05/22/25) Non-pressure chronic ulcer of other part of right foot with fat layer exposed (05/22/25) 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 foot with fat layer exposed (05/22/25) Weakness (05/22/25) Subjective Subjective Patient with no acute events overnight per self and per nursing report. She only notes left neck discomfort and strain with intermittent increased discomfort especially with activity and movement attempts since her admission. She denies any extremity discomforts or pain. She understands plan of care which includes revascularization 05/26/2025 per vascular surgery. Discussed recent podiatry evaluation with right foot wound evaluation at the bedside with plan continue dressing changes every 3 days to which she is amenable. Patient denies fevers, chills, nausea, emesis, abdominal pain, chest pain or dyspnea. Objective Data Objective Data Vital Signs: Vital Signs Temp Pulse Resp BP Pulse Ox O2 Del Method 97.8 F 55 L 16 144/58 H 97 Room Air 05/25/25 04:00 05/25/25 04:00 05/25/25 04:00 05/25/25 04:00 05/25/25 04:00 05/25/25 04:00 Oxygen Delivery Method Room Air Weight: 162 lb 4.8 oz Body Mass Index (BMI) 26.2 Intake & Output: Intake and Output for Last 24 Hours 05/23/25 05/24/25 05/25/25 23:59 23:59 23:59 Intake Total 950 / 950 Output Total 400 / 400 Balance -400 / -400 950 / 950 Lab / Micro Data 05/25/25 04:31 05/25/25 04:31 Labs: Laboratory Results - last 24 hr 05/24/25 11:46: POC Glucose 180 H 05/24/25 16:34: POC Glucose 213 H 05/24/25 22:01: POC Glucose 133 H 05/25/25 04:31: WBC 5.4, RBC 2.98 L, Hgb 8.8 L, Hct 26.6 L, MCV 89.3, MCH 29.5, MCHC 33.1, RDW Std Deviation 50.9 H, RDW Coeff of [place]org[place] 15.5 H, Plt Count 234, MPV10.6 05/25/25 06:47: POC Glucose 134 H Physical Exam Narrative Physical Examination: General: Awake, alert, oriented x 3 and cooperative, seated upright in the [facility] bed, fatigued, notes only complaint of left neck discomfort with movement. Skin: Normal color, normal turgor, no icterus, no cyanosis except for occasionalstage ecchymoses, abrasion, bilateral lower extremity diabetic foot wounds with currently dressings in place per podiatry with no drainage. HEENT: AT/NC, EOMI, PERRLA, MMM. Lungs: Mildly diminished, greater bases, proper effort, no rales, ronchi or wheezing. Heart: Regular rate with regular rhythm; no gallop, rub audible. Abdomen: Soft, NTTP, ND, normal BS. Extremities: No cyanosis, no clubbing, see skin, bilateral lower extremity foot wound dressings in place with no drainage. Neurological: Patient awake, alert, oriented as noted, cognitive function intact; pupils equally reactive to light and accommodation, cranial nerves grossly normal, moving all 4 extremities, mildly tremulous, less than previous admission which is chronic, no obvious focal deficits, strength severely globally decreased. Psychiatric: Affect appears fatigued otherwise normal, no acute evidence of depressive or anxiety feelings. Assessment & Plan Assessment/Plan (1) Fall: (2) Generalized weakness: PLAN: Plan The patient is a 75 y/o F w/ PMHx: CAD, PAD s/p peripheral angioplasty, Diabetesmellitus type II with Chronic neuropathy, Anxiety and Depression, HTN, HLD, Former tobacco use, Chronic normocytic anemia/Fe deficiency anemia, CKD stage III unclear subtype per GFR trending, chronic bilateral lower extremity diabeticulcerations/wounds following with Dr. Irene status post recent 05/20/2025 surgical intervention with discharge 05/21/2025 unfortunately with refusal for skilled placement as there was not a TCU bed available at that time who then returned 05/22/2025 with generalized weakness and mechanical fall while attempting to transfer unable to get herself up prompting return to the hospital for evaluation and care. #1. Adult FTT, Debility with patient deferral of recommended SNF placement following recent discharge w/ return to home with mechanical fall complicated byRecent bilateral lower extremity diabetic wounds with significantly MRSA infected left lower diabetic wound with associated MRSA bacteremia: Status post 05/20/2025 incision of the bone cortex of the left ankle, surgical skin grafting to the left leg, surgical skin grafting to the left foot, application of graft substitute, wound culture from OR with MRSA, discharged on linezolid, will continue antibiotic regimen, continue podiatry involvement as well as continued infectious disease involvement and vascular surgery as noted, most recent podiatry evaluation 05/24/2025 with noted plan for continued Adaptic placement to the graft area with overlapping dry sterile dressing and single layer of Man compression bandage with plan for continued change every 3 days. Podiatry noteddressings may be removed if needed temporarily however replaced immediately following as noted. PT/OT/case management consulted for discharge planning. Patient is only willing to transition to [facility] if it is TCU and bed has been requested it is unclear if it will be made available. #2. Peripheral vascular disease, PAD with significant bilateral lower extremitywounds and ulceration: Patient following with Dr. Clement, most recent imaging noted during previous presentation also with CTA demonstrating significant calcific femoral disease bilaterally with angiogram evaluation of the tibial vessels, planning 05/26/2025 bypass bilaterally with vein mapping unfortunately demonstrating insufficient vein use for bypass grafting with recommendation in conjunction with podiatry/vascular surgery noted to be bilateral femoral endarterectomies with bilateral femoral to tibial bypass with cadaver graft and bilateral sartorius flaps with planned staged procedures. Will continue aspirin,Plavix, statin, hypertensive regimen with adjustments as needed pending blood pressure trending as noted. #3. Chronic Kidney Disease Stage III, unclear subtype or GFR trending: Admission BUN/Cr 56/1.22, GFR 47, baseline renal function primarily 1.3-1.5 but did have recent presentation with acute kidney injury with creatinine up to 1.96, resolved currently and had felt at that time to be secondary to ATN, repeat BMP in AM. 05/25/2025 BUN/creatinine 38/1.11, GFR 52. #4. Diabetes mellitus type II complicated by #1 with chronic diabetic wounds and chronic diabetic neuropathy: Hold oral home regimen, maintain on ADA diet, awaiting vascular surgery wanted percent confirmation of intervention 05/26/2025, will allow n.p.o. status per their timeline, will maintain on accu checks w/ ISS, continue home pregabalin regimen. #5. Hypertension: Continue home regimen including metoprolol, amlodipine with hold parameters as needed, PRN hydralazine. #6. Hyperlipidemia: Continue home statin therapy. #7. Chronic normocytic anemia/iron deficiency anemia: Admission hemoglobin 9.5,MCV 90.2, baseline hemoglobin has vacillated but appears primarily 9 range, continue to closely trend CBC, if dropping further will investigate. Will continue iron supplementation. 05/25/2025 hemoglobin 8.8, MCV 89.3, stable. #8. Anxiety and depression: Noted history in the chart, not on regimen per current list, continue to monitor and follow-up outpatient as previously arranged. #9. Former tobacco use: Encourage continued tobacco cessation. #10. DVT prophylaxis: Heparin, will await input per vascular surgery to assure planned intervention with hold preoperatively. #11. CODE status: Patient VICTOR MANUEL she thinks is her sister. Full Code status. Charges/Coding Visit Charges Inpatient E&M: 91830 Subs Hosp L3 05/25/25 1341 <Electronically signed by Maddie Merchant MD> Cosigner Signature (if applicable): CC: ~ Signed [facility] Work Phone: 1(270) 988-653007-06-2025 Consult note Author Patel Irene [facility] Note Date/Time May 24, 2025 11:28 am [facility] Medical Records Department [address] [place] [address] Consultation 05/24/25 1003 MR#: [id number] Acct: [id number] Name: JONNYGELY Melinda Rep #:[id number] : 1950 75 From: Patel Abraham PM PCP: Dr. Rishi Vasquez, DO Status:AD [place] ALLAN Location: MS3 MP888-2 Assessment & Plan Assessment/Plan (1) Non-pressure chronic ulcer of other part of right foot with fat layer exposed: PLAN: Patient was examined and evaluated. All findings were discussed with the patient. All questions were answered to the patient satisfaction. After physical examination of the patient's bilateral intake of skin grafts are well adhered and secured with jacob. The grafts were dressed with Adaptic, dry sterile dressing and single-layer Man compression bandage was donned to the bilateral lower extremity. Please change every 3 days. Patient will be having intervention with vascular surgery in the next upcoming days. It is okay to remove the dressings as needed but please reapply as above. No plan for surgical intervention from podiatry standpoint during this hospital stay. Blood cultures (06/17/2025): No growth Bone culture, ankle (05/20/2025): Staph aureus Wound culture: Foot (05/18/2025): MRSA, coag negative staph WBC: 5.2 Glucose: 89 HbA1c: 7.6 Medicine: On board, medical management, PO 600 mg linezolid PT/OT: On board Recommend infectious disease consultation due to bone culture growing Staph aureus during the patient's last hospital stay/OR visit. Podiatry will continue to follow patient while in house but will follow from a distance. Please reach out to Dr. Irene or Dr. Berry with any question or concerns. will be taking over call 05/25/2025. I will be able to be reached via cell phone and [place] of the country [place] 1 week. Thank you for the consultation and allowing me to be involved in the patient care. (2) 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 foot with fat layer exposed: (3) Other specified peripheral vascular diseases: (4) Type 2 diabetes mellitus with foot ulcer: HPI Consult Data Date of Consult: 05/24/25 HPI Narrative Reason for Consultation: Bilateral full-thickness wound with graft application HPI Narrative: GELY FULLER, is a 75 F who presented on 06/12 with generalized weakness and sliding out of her chair. Patient states that she woke up this morning use her walker to walk on the chair went to sit down and slid out of the chair was on the ground. States that she sat there for an extended period of time and statesthat she could not get up therefore EMS was called and she was brought here for the evaluation management. Patient is well-known to my service and was seen forsurgery on 05/20/2025 for surgical skin graft site prep with application of skin graft substitute donned. Patient has left the postoperative dressing clean dry and intact. She denies any strikethrough. She does admit to some weakness. She denies any constitutional symptoms. Other B complaints at this time. 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 1 applic topical DA NHI #15 grams 05/21/25 Unknown Rx unit/gram topical ointment (Santyl) linezolid 600 mg tablet 600 mg PO BID #21 tabs 05/21 Unknown Rx Allergy/AdvReac Type Severity Reaction Status Date / Time Sulfa (Sulfonamide Allergy Unknown Verified 05/22/25 11:05 Antibiotics) Family History Father CAD (coronary artery [...] Physical Exam Narrative Vascular: DP and PT pulse are faintly palpable to the bilateral extremity. CFT is brisk. Skin temperature gradient is warm to warm from proximal ankle to distal digits bilateral. No focal increase is appreciated. Neurological: Light touch is intact. Protective station is absent. Dermatological: Multiple of full-thickness wounds to the bilateral lower extremity with Integra bilayer skin graft secured with jacob. All wounds are stable with no sign of infection. No malodor. No drainage. No sign of infection. Musculoskeletal: Muscle strength is 5 out of 5 in all quadrants to the bilaterallower extremity. No pain on palpation to full-thickness wounds and graft to thebilateral lower extremity. No pain with calf pressure. Lab / Micro Data 05/23/25 04:48 05/23/25 04:48 Labs: Laboratory Results - last 24 hr 05/23/25 11:26: POC Glucose 248 H 05/23/25 16:25: POC Glucose 176 H 05/23/25 22:35: POC Glucose 177 H 05/24/25 06:40: POC Glucose 130 H 05/24/25 1128 <Electronically signed by Patel Irene DPM> Cosigner Signature (if applicable): CC: Dr. Wilberto Suazo, DO; Dr. Rishi Vasquez, ~ Signed [facility] Work Phone: 1(256) 206-979107-06-2025 Progress note Author Michaela Joshua [facility] Note Date/Time May 24, 2025 10:20 am [facility] Medical Records Department [address] [place] [address] Progress Note - Hospitalist 05/24/25 0711 MR#: [id number] Acct: [id number] Name: GELY FULLER Rep #:[id number] : 1950 75 From: Michaela Joshua DO PCP: Dr. Rishi Vasquez, Status:AD M ADAM Location: MS3 DV054-3 Reason for Visit Reason for Visit: Weakness/Falls Subjective Subjective No issues overnight. Slept well. Having BM's. Denies pain. Objective Data Objective Data Vital Signs: Vital Signs Temp Pulse Resp BP Pulse Ox O2 Del Method 97.7 F L 53 L 16 139/93 H 99 Room Air 05/24/25 04:30 05/24/25 04:30 05/24/25 04:30 05/24/25 04:30 05/24/25 04:30 05/24/25 04:30 Oxygen Delivery Method Room Air Weight: 73.618 kg Body Mass Index (BMI) 26.2 Intake & Output: Intake and Output for Last 24 Hours 05/22/25 05/23/25 05/24/25 23:59 23:59 23:59 Intake Total 1500 / 1500 100 / 100 Output Total 700 / 700 400 / 400 Balance 800 / 800 -400 / -400 100 / 100 Lab / Micro Data 05/23/25 04:48 05/23/25 04:48 Labs: Laboratory Results - last 24 hr 05/23/25 11:26: POC Glucose 248 H 05/23/25 16:25: POC Glucose 176 H 05/23/25 22:35: POC Glucose 177 H 05/24/25 06:40: POC Glucose 130 H Physical Exam Const alert, oriented x3, no apparent distress and average body habitus Constitutional Narrative: Elderly, white female, sitting up in a chair at the bedside, appears comfortable, non-toxic General Appearance: cooperative and comfortable HEENT normocephalic, head/scalp atraumatic and moist oral mucous membranes Resp normal respiratory effort, normal air movement, no retractions, no use of accessory muscles and clear to auscultation bilaterally Resp Narrative: diminished diffusely but clear Cardio regular rate, regular rhythm, S1 normal heart sound, S2 normal heart sound, no murmurs, no rub, no gallops and no clicks GI normal to inspection, nondistended, normoactive bowel sounds, soft to palpation and non-tender Extremity Extremity Narrative: Bilateral lower extremities with Buzz wrap in place up to the knees, offloading brace in place on left foot up to mid lower left leg as well, decreased cap refill Neuro moves all extremities and no focal motor deficits Speech: speech normal Psych affect normal Psych Narrative: eye contact is good and interacts normal Assessment & Plan Assessment/Plan (1) Generalized weakness: PLAN: Plan Fall/generalized weakness - Patient with recent hospitalization and SNF was recommended - Patient was adamant she would only go to the transitional care unit here at the hospital and no beds were available so she declined admission for rehab and went home - Patient fell shortly after being discharged and came back to the emergency department as she discovered she was unable to care for herself after discharge - Is now amenable to placement - Patient has commercial Medicare and will need pre-CERT prior to discharge willdiscuss with case management today - PT/OT following MRSA bacteremia - Clinically was clearing infection per discussion with infectious disease priorto discharge they desired linezolid for 10 more days - Blood cx neg at 48 hrs Peripheral vascular disease with bilateral lower extremity ulceration and wounds - MRSA infection - Linezolid as above - Plan is for revascularization this coming Sunday as long as she is medically stable-->Dr. Clement consulted and discussed case with him-->to see tomorrow - Continue aspirin and Plavix Diabetic foot ulcer bilateral lower extremities - Wounds overall appear stable - will continue antibiotic regimen - Has undergone debridement with podiatry - Revascularization planned for 05/26/2025 - Dr. Irene consult--> to see today CKD stage IIIa - Serum creatinine today is actually down from her baseline at 0.91 - Monitor clinically and avoid nephrotoxins as able CAD/essential hypertension/hyperlipidemia - Continue home metoprolol - Continue home atorvastatin - Continue home aspirin - Continue Plavix DM-2 - A1c is 7.6 on 05/18/2025 - Blood glucose of 216 on admission - Takes only glimepiride at baseline - Continue SSI - Continue Accu-Cheks - Avoid any further intervention at this time as fasting sugar this morning is 89 Chronic normocytic anemia secondary to iron deficiency - Hemoglobin appears to be stable - continue home iron supplementation and vitamin C supplementation which will assist with iron absorption COPD with history of tobacco use - Continue aerosols as ordered Anxiety/depression - Patient currently is not on any medication for this DVT prophylaxis - Continue heparin 3 times daily CODE STATUS -Full code Disposition: - Patient is medically stable for discharge as of the day of admission 05/22/2025. This is a readmission after discharge per patient's insistence on not being admitted to correction facility other than transitional care unit which unfortunately had no bed availability. Case management is involved and will work on finding facility. Patient does need pre-CERT and may not be able to be discharged before her surgery next Sunday Charges/Coding Visit Charges Inpatient E&M: 21738 Subs Hosp L2 05/24/25 1020 <Electronically signed by Michaela Joshua DO> Cosigner Signature (if applicable): CC: ~ Signed [facility] Work Phone: 1(788) 899-466007-06-2025 [facility]07-05-2025 Progress note Author Michaela Joshua [facility] Note Date/Time May 23, 2025 12:11 pm [facility] Medical Records Department [address] [place] [address] Progress Note - Hospitalist 05/23/25 0758 MR#: [id number] Acct: [id number] Name: GELY FULLER Rep #:[id number] : 1950 75 From: Michaela Joshua DO PCP: Dr. Rishi Vasquez, DO Status:AD M ADAM Location: MS3 DK168-0 Reason for Visit Reason for Visit: Fall Subjective Subjective Pt refusing to let anyone but Dr. Irene. Consult placed and he will be in tomorrow to address. C/O neck pain. Will try heating pad and mm relaxant. Pt nowamenable to SNF placement. Objective Data Objective Data Vital Signs: Vital Signs Temp Pulse Resp BP Pulse Ox O2 Del Method 97.9 F 65 16 141/66 H 96 Room Air 05/23/25 02:40 05/23/25 02:40 05/23/25 02:40 05/23/25 02:40 05/23/25 02:40 05/23/25 07:12 Oxygen Delivery Method Room Air Weight: 73.618 kg Body Mass Index (BMI) 26.2 Intake & Output: Intake and Output for Last 24 Hours 05/21/25 05/22/25 05/23/25 23:59 23:59 23:59 Intake Total 1500 / 1500 Output Total 700 / 700 400 / 400 Balance 800 / 800 -400 / -400 Lab / Micro Data 05/23/25 04:48 05/23/25 04:48 Labs: Laboratory Results - last 24 hr 05/22/25 12:15: WBC 7.2, RBC 3.28 L, Hgb 9.5 L, Hct 29.6 L, MCV 90.2, MCH 29.0, MCHC 32.1, RDW Std Deviation 52.4 H, RDW Coeff of Jorgito 15.8 H, Plt Count 214, MPV10.9, Immature Gran % (Auto) 1.300 H, Neut % (Auto) 78.4 H, Lymph % (Auto) 9.1 L, Lea % (Auto) 9.0, Eos % (Auto) 1.5, Baso % (Auto) 0.7, Absolute Neuts (auto) 5.6, Absolute Lymphs (auto) 0.65 L, Nucleated RBC % 0, Sodium 140, Potassium 4.3, Chloride 109 H, Carbon Dioxide 19.0 L, Anion Gap 13, BUN 56 H, Creatinine 1.22 H, Estim Creat Clear Calc 42.00 L, Est GFR (MDRD) Non-Af 47 L, BUN/Creatinine Ratio 45.7 H, Glucose 216 H, Calcium 9.2, Total Bilirubin 0.33, AST 58 H, ALT 41 H, Alkaline Phosphatase 55, Total Protein 6.2, Albumin 2.9 L, Globulin 3.3, Albumin/Globulin Ratio 0.9 05/22/25 16:09: POC Glucose 269 H 05/22/25 21:52: POC Glucose 160 H 05/23/25 04:48: WBC 5.2, RBC 3.06 L, Hgb 9.0 L, Hct 27.6 L, MCV 90.2, MCH 29.4, MCHC 32.6, RDW Std Deviation 52.3 H, RDW Coeff of Jorgito 15.9 H, Plt Count 213, MPV11.2, Sodium 142, Potassium 3.9, Chloride 111 H, Carbon Dioxide 21.1, Anion Gap 10, BUN 38 H, Creatinine 0.91, Estim Creat Clear Calc 56.52, Est GFR (MDRD) Non-Af 66, BUN/Creatinine Ratio 42.0 H, Glucose 89, Calcium 8.9 05/23/25 06:30: POC Glucose 82 Physical Exam Const alert, oriented x3, no apparent distress and average body habitus Constitutional Narrative: Elderly, white female, sitting up in a chair at the bedside, appears comfortable, non-toxic General Appearance: cooperative and comfortable HEENT normocephalic, head/scalp atraumatic and moist oral mucous membranes Resp normal respiratory effort, normal air movement, no retractions, no use of accessory muscles and clear to auscultation bilaterally Resp Narrative: diminished diffusely but clear Cardio regular rate, regular rhythm, S1 normal heart sound, S2 normal heart sound, no murmurs, no rub, no gallops, no clicks and no JVD GI normal to inspection, nondistended, normoactive bowel sounds, soft to palpation and non-tender Extremity Extremity Narrative: Bilateral lower extremities with Buzz wrap in place up to the knees, offloading brace in place on left foot up to mid lower left leg as well, decreased cap refill Neuro moves all extremities and no focal motor deficits Speech: speech normal Psych mental status grossly normal and affect normal Psych Narrative: eye contact is good and interacts normal Assessment & Plan Assessment/Plan (1) Generalized weakness: PLAN: Plan Fall/generalized weakness - Patient with recent hospitalization and SNF was recommended - Patient was adamant she would only go to the transitional care unit here at the hospital and no beds were available so she declined admission for rehab and went home - Patient fell shortly after being discharged and came back to the emergency department as she discovered she was unable to care for herself after discharge - Is now amenable to placement - Patient has commercial Medicare and will need pre-CERT prior to discharge willdiscuss with case management today - PT/OT following MRSA bacteremia - Clinically was clearing infection per discussion with infectious disease priorto discharge they desired linezolid for 10 more days - Follow-up cultures for clearance are pending if negative no further workup andcontinue linezolid - If follow-up cultures are positive will check echocardiogram and suggested to vancomycin - If follow-up cultures are positive we will also reconsult infectious disease Peripheral vascular disease with bilateral lower extremity ulceration and wounds - MRSA infection - Linezolid-->pt bringing in home script--> did take last night and this am - Plan is for revascularization this coming Sunday as long as she is medically stable - Continue aspirin and Plavix - Will consult vascular surgery on Sunday evening for evaluation on Sunday giventhe fact that surgery is planned for on Sunday Diabetic foot ulcer bilateral lower extremities - Wounds overall appear stable - will continue antibiotic regimen - Has undergone debridement with podiatry - Revascularization planned for 05/26/2025 - Dr. Irene consult CKD stage IIIa - Serum creatinine today is actually down from her baseline at 0.91 - Monitor clinically and avoid nephrotoxins as able CAD/essential hypertension/hyperlipidemia - Continue home metoprolol - Continue home atorvastatin - Continue home aspirin - Continue Plavix DM-2 - A1c is 7.6 on 05/18/2025 - Blood glucose of 216 on admission - Takes only glimepiride at baseline - Continue SSI - Continue Accu-Cheks - Avoid any further intervention at this time as fasting sugar this morning is 89 Chronic normocytic anemia secondary to iron deficiency - Hemoglobin appears to be stable - continue home iron supplementation and vitamin C supplementation which will assist with iron absorption COPD with history of tobacco use - Continue aerosols as ordered Anxiety/depression - Patient currently is not on any medication for this DVT prophylaxis - Continue heparin 3 times daily CODE STATUS -Full code Disposition: - Patient is medically stable for discharge as of the day of admission 05/22/2025. This is a readmission after discharge per patient's insistence on not being admitted to correction facility other than transitional care unit which unfortunately had no bed availability. Case management is involved and will work on finding facility. Patient does need pre-CERT and may not be able to be discharged before her surgery next Sunday Charges/Coding Visit Charges Inpatient E&M: 08912 Subs Hosp L2 05/23/25 1211 <Electronically signed by Michaela Joshua DO> Cosigner Signature (if applicable): CC: ~ Signed [facility] Work Phone: 1(210) 450-972107-04-2025 History and physical note Author Wilberto Suazo [facility] Note Date/Time May 22, 2025 4:31p m [facility] Medical Records Department [address] [place] [address] H&P Exam - Hospitalist 05/22/25 1329 MR#: [id number] Acct: [id number] Name: GELY FULLER Rep #:[id number] : 1950 75 From: Wilberto mosley DO PCP: Dr. Rishi Vasquez, DO Status:AD M [facility] Location: CA3 EX609-4 HPI - General General Date of Admission: 05/22/25 Date of Service: 05/22/25 Chief Complaint: Generalized weakness HPI Narrative GELY FULLER, is a 75 F who presented to [facility] ED on 05/22/2025 with generalized weakness. Patient was hospitalized here from 05/18-05/21, was just discharged home yesterday. She was admitted for sepsis secondary to suspected UTI but notably has severe peripheral vascular disease and diabeteswith bilateral lower extremity ulceration and wounds. Podiatry, ID and vascularsurgery followed. Patient had surgical skin grafting done with Dr. Irene with podiatry on 05/20. Wound cultures were growing MRSA and patient was discharged home on linezolid. Plan is for open revascularization with vascular surgery next Sunday. Patient had weakness and borderline therapy scores but she only wanted rehab in our TCU and no bed was available, so she opted to discharge homewith home health care. However [facility] and was unable to get herself up, so she was brought to the ED for further evaluation. Patient was hemodynamically stable on room air and labswere stable from previous. Given worsening weakness and inability to care for self at home, hospitalist was contacted for admission. I saw the patient at bedside in the ED, family member present. Patient was sitting back comfortably in bed, conversing normally, in no acute distress. She admitted that she shouldnot have gone home on discharge due to her weakness. She realized that she was unable to take care of herself and will need physical therapy and rehab on discharge. She had a small fall onto her bottom, did not hit anything else withthe fall. Denies any acute pain or discomfort currently. Will be admitted for further management. 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 1 applic topical DA NHI #15 grams 05/21/25 Unknown Rx unit/gram topical ointment (Santyl) linezolid 600 mg tablet 600 mg PO BID #21 tabs 05/21 Unknown Rx Allergy/AdvReac Type Severity Reaction Status Date / Time Sulfa (Sulfonamide Allergy Unknown Verified 05/22/25 11:05 Antibiotics) Family History Father CAD (coronary artery [...] ROS Constitutional Constitutional: Reports weakness; Denies chills, fatigue or fever(s) Eyes Eyes: Denies change in vision Cardiovascular Cardiovascular: Denies chest pain Respiratory/Chest Respiratory/Chest: Denies shortness of breath at rest Gastrointestinal Gastrointestinal: Denies abdominal pain Musculoskeletal Musculoskeletal: Denies arthralgias or myalgias Neurologic Neurologic: Denies dizziness, focal weakness or headache(s) Vital Signs Vital Signs Vital Signs: 05/22/25 11:05 05/22/25 11:42 Temperature 98 F Temperature Source Temporal Pulse Rate 81 Respiratory Rate 18 Blood Pressure 124/74 H Blood Pressure Mean 90 Pulse Ox 98 Oxygen Delivery Method Room Air Room Air Weight Weight: 73 kg Body Mass Index (BMI) 25.9 Physical Exam Const alert, oriented x3, no apparent distress and average body habitus Constitutional Narrative: Elderly female, mildly fatigued appearing, otherwise sitting back comfortably inbed, conversing normally, in no acute distress. General Appearance: cooperative and comfortable HEENT normocephalic, head/scalp atraumatic, hearing grossly normal bilaterally, nasal mucous membranes and turbinates normal and moist oral mucous membranes Eyes PERRL, EOMs intact bilaterally and conjunctivae normal Neck full ROM Chest inspection of chest normal Resp normal respiratory effort, normal air movement, no use of accessory muscles and clear to auscultation bilaterally Cardio regular rate, regular rhythm, no murmurs and peripheral pulses 2+ throughout GI normal to inspection, nondistended, normoactive bowel sounds, soft to palpation,non-tender and non-distended Back/Spine normal ROM Extremity Extremity Narrative: Bilateral lower extremities with Buzz wrap in place up to the knees. Brace in place on left foot up to mid lower left leg as well. Psych mental status grossly normal Results Lab / Micro Data 05/22/25 12:15 05/22/25 12:15 Labs: Laboratory Results - last 24 hr 05/22/25 12:15: WBC 7.2, RBC 3.28 L, Hgb 9.5 L, Hct 29.6 L, MCV 90.2, MCH 29.0, MCHC 32.1, RDW Std Deviation 52.4 H, RDW Coeff of Jorgito 15.8 H, Plt Count 214, MPV10.9, Immature Gran % (Auto) 1.300 H, Neut % (Auto) 78.4 H, Lymph % (Auto) 9.1 L, Lea % (Auto) 9.0, Eos % (Auto) 1.5, Baso % (Auto) 0.7, Absolute Neuts (auto) 5.6, Absolute Lymphs (auto) 0.65 L, Nucleated RBC % 0, Sodium 140, Potassium 4.3, Chloride 109 H, Carbon Dioxide 19.0 L, Anion Gap 13, BUN 56 H, Creatinine 1.22 H, Estim Creat Clear Calc 42.00 L, Est GFR (MDRD) Non-Af 47 L, BUN/Creatinine Ratio 45.7 H, Glucose 216 H, Calcium 9.2, Total Bilirubin 0.33, AST 58 H, ALT 41 H, Alkaline Phosphatase 55, Total Protein 6.2, Albumin 2.9 L, Globulin 3.3, Albumin/Globulin Ratio 0.9 Assessment & Plan Assessment/Plan (1) Generalized weakness: PLAN: Plan Patient is a 75-year-old female who presented to [facility] ED on 05/22/2025 with generalized weakness. 1. Acute on chronic debility ? Admit under observation status to [facility]. PT/OT/case management consulted. Patient with borderline therapy scores during recent hospitalization and recommendation was for rehab, but patient wanted only TCU here and with this notavailable opted for home with home health care. She is agreeable to SNF placement on this discharge once medically ready. Appreciate therapy recommendations. 2. Bilateral lower extremity ulcerations and wounds in setting of severe peripheral vascular disease and diabetes ? Podiatry, ID and vascular surgery followed during recent hospitalization. Hadskin grafting done with podiatry on 05/20. Plan is for open revascularization with vascular surgery next Saturday 05/26. Suspect patient will still be hospitalized then so we will tentatively plan for procedure well inpatient. Notably had MRSA growing on recent wound cultures and was discharged home on linezolid; continue p.o. linezolid. Wound care consulted. Will hold on furtherconsults for now but if patient remains hospitalized, can plan for vascular surgery consult early next week. 3. Chronic normocytic anemia secondary to iron deficiency ? Hemoglobin 9.5 on admit. Stable at recent baseline. Continue home iron supplement. 4. History of CAD, hypertension, hyperlipidemia ? Stable. Continue home aspirin, Plavix, Toprol, amlodipine and statin. Notably may need to discuss with vascular surgery if Plavix needs to be held prior to procedure. 5. Type 2 diabetes mellitus with diabetic neuropathy ? A1c 7.6% on 05/18. Blood glucose 216 on admit. Only on home glimepiride. Will treat with sliding scale insulin with meals while inpatient, adjust as needed. 6. Mild creatinine elevation ? Creatinine 1.22 on admit. Per prior notes, baseline is around 0.9-1.1. Had SHAYY during recent hospitalization and creatinine on this admission is continuingto improve from previous. Continue to monitor daily BMP and urine output. DVT prophylaxis: Heparin subcu CODE STATUS: Full code, verified Expected disposition: TBD Total clinical time spent by myself addressing the patient's medical issues, reviewing all the data, and collaborating with patient's care team: 75 minutes. Charges/Coding Visit Charges Inpatient E&M: 00299 Init Hosp L3 05/22/25 1631 <Electronically signed by Wilberto Suazo DO> Cosigner Signature (if applicable): CC: Dr. Wilberto Suazo DO; Dr. Rishi Vasquez DO~ Signed [facility] Work Phone: 1(128) 177-938307-04-2025 Discharge summary Author Heron Andry [facility] Note Date/Time May 22, 2025 1:36p m [facility] Medical Records Department [address] [place] [address] Emergency Department Summary 05/22/25 MR#: [id number] Acct: [id number] Name: GELY FULLER Rep #:[id number] : 1950 75 From: Heron Wilde DO PCP: Dr. Rishi Vasquez DO Status:RE G ER Location: ED HPI History of Present Illness Chief Complaint: Fall Narrative Narrative: Patient is a 75-year-old female with past medical history of diabetes, recent surgery on her foot for ulcers, depression, vertigo, neuropathy, carotid artery stenosis, hyperlipidemia, type 2 diabetes who presented to the emergency department chief complaint of fall. Patient states that she woke up this morning use her walker to walk on the chair went to sit down and slid out of thechair was on the ground. States that she sat there for an extended period of time and states that she could not get up therefore EMS was called and she was brought here for the evaluation management. Patient states that she just had a foot surgery and was recently released from the hospital. Patient states that she does feel overall tired. 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 250 1 applic topical DA NHI #15 grams 05/21/25 Unknown Rx unit/gram topical ointment (Santyl) linezolid 600 mg tablet 600 mg PO BID #21 tabs 05/21 Unknown Rx Allergy/AdvReac Type Severity Reaction Status Date / Time Sulfa (Sulfonamide Allergy Unknown Verified 05/22/25 11:05 Antibiotics) Family History Father CAD (coronary artery [...] not use caffeine: No ROS ROS ED ROS Narrative Constitutional: Denies any fevers, chills, headaches, lightness, dizziness Eyes: Denies change in vision double vision blurry vision Cardiovascular: Denies chest pain Respiratory: Denies coughing wheezing shortness of breath Abdomen: Denies abdominal pain nausea vomit diarrhea : Denies urinary symptoms Neurological: Denies numbness, aches, tingling Musculoskeletal: Denies back pain Skin: Denies rashes or lesions EXAM Physical Exam Narrative Exam Narrative: General: Patient was lying in bed rest comfortably did not appear to be in acutedistress Head: Atraumatic, normocephalic Eyes: PERRL bilaterally, EOMI blood, no conjunctival injection noted Neck: Soft, supple, trachea midline, no tenderness palpation midline of cervicalspine Cardiovascular: Regular rate and rhythm no murmurs gallops rubs noted Respiratory: Clear to auscultation bilaterally no rales rhonchi or wheeze noted Abdomen: Soft, nondistended, nontender to palpation Musculoskeletal: All bony prominences palpated joints taken full range of motionno pain elicited Extremities: +4/5 strength noted in the bilateral upper and lower extremities, radial pulses +2/4 in the bilateral extremities, no pedal edema on exam Neurological: Patient 5 commands that she was at [facility] year is 2024 sensation grossly intact Skin: Warm, dry, intact no rashes or lesions noted Const Vital Signs: 05/22/25 11:05 05/22/25 11:42 Temperature 98 F Temperature Source Temporal Pulse Rate 81 Respiratory Rate 18 Blood Pressure 124/74 H Blood Pressure Mean 90 Pulse Ox 98 Oxygen Delivery Method Room Air Room Air MDM MDM MDM Narrative Medical decision making narrative: Patient is a 75-year-old female who presented to the emergency department chief complaint of falling out of her chair. She once again states that she slid on her butt out of her chair did not hit her head did not pass out remembers the entire event she just felt too weak to get up therefore EMS was called to have her brought here for further evaluation management. On the differential diagnose includes but not limited to generalized weakness, electrolyte abnormality, UTI. Once workup is obtained reviewed she will be reevaluated. Patient be given IV fluids. Patient CBC reviewed showed no evidence leukocytosis white blood count normal 7.2, hemoglobin stable at 9.5 this is improved from a blood drawl from yesterday, platelet count was normal at 214. Patient sodium normal 140, potassium of 4.3, creatinine was 1.22 she has underlying chronic kidney disease remained stable. Patient AST and ALT are 58 and 41 respectively. Patient's EKGshowed sinus rhythm with a rate of 85 bpm. At this point in time after discussion with the patient and her brother at bedside they note that she is not safe to go home and they are in agreement withplacement. Discussed case with hospitalist Dr. Suazo who accept patient for admission. Patient notified as well as brother at bedside they are agreeable. Lab Data Labs: Laboratory Results - last 24 hr 05/22/25 12:15 WBC 7.2 RBC 3.28 L Hgb 9.5 L Hct 29.6 L MCV 90.2 MCH 29.0 MCHC 32.1 RDW Std Deviation 52.4 H RDW Coeff of Jorgito 15.8 H Plt Count 214 MPV 10.9 Immature Gran % (Auto) 1.300 H Neut % (Auto) 78.4 H Lymph % (Auto) 9.1 L Lea % (Auto) 9.0 Eos % (Auto) 1.5 Baso % (Auto) 0.7 Absolute Neuts (auto) 5.6 Absolute Lymphs (auto) 0.65 L Nucleated RBC % 0 Sodium 140 Potassium 4.3 Chloride 109 H Carbon Dioxide 19.0 L Anion Gap 13 BUN 56 H Creatinine 1.22 H Estim Creat Clear Calc 42.00 L Est GFR (MDRD) Non-Af 47 L BUN/Creatinine Ratio 45.7 H Glucose 216 H Calcium 9.2 Total Bilirubin 0.33 AST 58 H ALT 41 H Alkaline Phosphatase 55 Total Protein 6.2 Albumin 2.9 L Globulin 3.3 Albumin/Globulin Ratio 0.9 Discharge Plan Triage Chief Complaint: Fall ED Provider: Heron Wilde Dx/Rx/DC Orders Clinical Impression: Generalized weakness, Type 2 diabetes mellitus with foot ulcer, Non-healing ulcer of right foot, Fall Prescriptions: No Action calcium carbonate [Calcium 600] [...] 2 mg tablet 2 mg PO BID Santyl 250 unit/gram Ointment 1 applic topical DAILY Qty: 15 0RF Protocol: *Topical Application Instructions APPLICATION INSTRUCTIONS: apply nickel thick layer to left posterior lower leg, left medial ankle, and left heel Rx Instructions: Apply to wound as instructed linezolid 600 mg Tablet 600 mg PO BID Qty: 21 0RF clopidogrel 75 mg tablet 75 mg PO [...] DO [Primary Care Provider] - Print Language: Colombian Disposition Disposition: Acute Care Hospital [facility] What to do if you have Problems For any increased pain, shortness of breath, bleeding, nausea or vomiting, chestpain, or any unexpected problems, contact your Primary Care Provider. Call [facility] ([phone]) or report to the closest Emergency Room. Call 911 if necessary. 05/22/25 1336 <Electronically signed by Heron Wilde DO> Cosigner Signature (if applicable): CC: Dr. Rishi Vasquez DO ~ Signed [facility] Work Phone: 1(535) 693-794307-04-2025 Discharge summary Author Heron Wilde [facility] Note Date/Time May 22, 2025 1:36p m [facility] Medical Records Department [address] [place] [address] Emergency Department Summary 05/22/25 MR#: [id number] Acct: [id number] Name: GELY FULLER Rep #:[id number] : 1950 75 From: Heron Wilde DO PCP: Dr. Rishi Vasquez DO Status:RE G ER Location: ED HPI History of Present Illness Chief Complaint: Fall Narrative Narrative: Patient is a 75-year-old female with past medical history of diabetes, recent surgery on her foot for ulcers, depression, vertigo, neuropathy, carotid artery stenosis, hyperlipidemia, type 2 diabetes who presented to the emergency department chief complaint of fall. Patient states that she woke up this morning use her walker to walk on the chair went to sit down and slid out of thechair was on the ground. States that she sat there for an extended period of time and states that she could not get up therefore EMS was called and she was brought here for the evaluation management. Patient states that she just had a foot surgery and was recently released from the hospital. Patient states that she does feel overall tired. 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 1 applic topical DA NHI #15 grams 05/21/25 Unknown Rx unit/gram topical ointment (Santyl) linezolid 600 mg tablet 600 mg PO BID #21 tabs 05/21 Unknown Rx Allergy/AdvReac Type Severity Reaction Status Date / Time Sulfa (Sulfonamide Allergy Unknown Verified 05/22/25 11:05 Antibiotics) Family History Father CAD (coronary artery [...] not use caffeine: No ROS ROS ED ROS Narrative Constitutional: Denies any fevers, chills, headaches, lightness, dizziness Eyes: Denies change in vision double vision blurry vision Cardiovascular: Denies chest pain Respiratory: Denies coughing wheezing shortness of breath Abdomen: Denies abdominal pain nausea vomit diarrhea : Denies urinary symptoms Neurological: Denies numbness, aches, tingling Musculoskeletal: Denies back pain Skin: Denies rashes or lesions EXAM Physical Exam Narrative Exam Narrative: General: Patient was lying in bed rest comfortably did not appear to be in acutedistress Head: Atraumatic, normocephalic Eyes: PERRL bilaterally, EOMI blood, no conjunctival injection noted Neck: Soft, supple, trachea midline, no tenderness palpation midline of cervicalspine Cardiovascular: Regular rate and rhythm no murmurs gallops rubs noted Respiratory: Clear to auscultation bilaterally no rales rhonchi or wheeze noted Abdomen: Soft, nondistended, nontender to palpation Musculoskeletal: All bony prominences palpated joints taken full range of motionno pain elicited Extremities: +4/5 strength noted in the bilateral upper and lower extremities, radial pulses +2/4 in the bilateral extremities, no pedal edema on exam Neurological: Patient 5 commands that she was at [facility] year is 2024 sensation grossly intact Skin: Warm, dry, intact no rashes or lesions noted Const Vital Signs: 05/22/25 11:05 05/22/25 11:42 Temperature 98 F Temperature Source Temporal Pulse Rate 81 Respiratory Rate 18 Blood Pressure 124/74 H Blood Pressure Mean 90 Pulse Ox 98 Oxygen Delivery Method Room Air Room Air MDM MDM MDM Narrative Medical decision making narrative: Patient is a 75-year-old female who presented to the emergency department chief complaint of falling out of her chair. She once again states that she slid on her butt out of her chair did not hit her head did not pass out remembers the entire event she just felt too weak to get up therefore EMS was called to have her brought here for further evaluation management. On the differential diagnose includes but not limited to generalized weakness, electrolyte abnormality, UTI. Once workup is obtained reviewed she will be reevaluated. Patient be given IV fluids. Patient CBC reviewed showed no evidence leukocytosis white blood count normal 7.2, hemoglobin stable at 9.5 this is improved from a blood drawl from yesterday, platelet count was normal at 214. Patient sodium normal 140, potassium of 4.3, creatinine was 1.22 she has underlying chronic kidney disease remained stable. Patient AST and ALT are 58 and 41 respectively. Patient's EKGshowed sinus rhythm with a rate of 85 bpm. At this point in time after discussion with the patient and her brother at bedside they note that she is not safe to go home and they are in agreement withplacement. Discussed case with hospitalist Dr. Suazo who accept patient for admission. Patient notified as well as brother at bedside they are agreeable. Lab Data Labs: Laboratory Results - last 24 hr 05/22/25 12:15 WBC 7.2 RBC 3.28 L Hgb 9.5 L Hct 29.6 L MCV 90.2 MCH 29.0 MCHC 32.1 RDW Std Deviation 52.4 H RDW Coeff of Jorgito 15.8 H Plt Count 214 MPV 10.9 Immature Gran % (Auto) 1.300 H Neut % (Auto) 78.4 H Lymph % (Auto) 9.1 L Lea % (Auto) 9.0 Eos % (Auto) 1.5 Baso % (Auto) 0.7 Absolute Neuts (auto) 5.6 Absolute Lymphs (auto) 0.65 L Nucleated RBC % 0 Sodium 140 Potassium 4.3 Chloride 109 H Carbon Dioxide 19.0 L Anion Gap 13 BUN 56 H Creatinine 1.22 H Estim Creat Clear Calc 42.00 L Est GFR (MDRD) Non-Af 47 L BUN/Creatinine Ratio 45.7 H Glucose 216 H Calcium 9.2 Total Bilirubin 0.33 AST 58 H ALT 41 H Alkaline Phosphatase 55 Total Protein 6.2 Albumin 2.9 L Globulin 3.3 Albumin/Globulin Ratio 0.9 Discharge Plan Triage Chief Complaint: Fall ED Provider: Heron Wilde Dx/Rx/DC Orders Clinical Impression: Generalized weakness, Type 2 diabetes mellitus with foot ulcer, Non-healing ulcer of right foot, Fall Prescriptions: No Action calcium carbonate [Calcium 600] [...] 2 mg tablet 2 mg PO BID Santyl 250 unit/gram Ointment 1 applic topical DAILY Qty: 15 0RF Protocol: *Topical Application Instructions APPLICATION INSTRUCTIONS: apply nickel thick layer to left posterior lower leg, left medial ankle, and left heel Rx Instructions: Apply to wound as instructed linezolid 600 mg Tablet 600 mg PO BID Qty: 21 0RF clopidogrel 75 mg tablet 75 mg PO [...] DO [Primary Care Provider] - Print Language: Colombian Disposition Disposition: [facility] What to do if you have Problems For any increased pain, shortness of breath, bleeding, nausea or vomiting, chestpain, or any unexpected problems, contact your Primary Care Provider. Call [facility] ([phone]) or report to the closest Emergency Room. Call 911 if necessary. 05/22/25 1336 <Electronically signed by Heron Wilde DO> Cosigner Signature (if applicable): CC: Dr. Rishi Vasquez DO ~ Signed [facility] Work Phone: 1(515) 508-164407-03-2025 [facility]07-02-2025 Consult note Author [facility] Note Date/Time May 20, 2025 9:19p m [facility] Medical Records Department [address] [place] [address] Anesthesia Postop Eval II 05/20/252117 MR#: [id number] Acct: [id number] Name: GELY FULLER Rep #:[id number] : 1950 75 From: Zachary Rodriguez MD PCP: Dr. Rishi Vasquez DO Status:AD M IN Y Race: C Location: [place] [address] Anesthesia Postop Eval I Sum Postop Eval Completion status Anesthesia document: Postop Eval 1 completed: Yes Anesthesia Postop Eval I Summary Anesthesia Postop Eval I Summary: Anesthesia Postop Eval I: Assessment Summary Airway patent Yes 05/20/25 16:57 [email or web address] Spontaneous unlabored Yes 05/20/25 16:57 [email or web address] respirations Mental status Awake,Calm 05/20/25 16:57 [email or web address] nausea No 05/20/25 16:57 [email or web address] Vomiting No 05/20/25 16:57 [email or web address] Anesthesia Postop Eval I: Fluid Summary Crystalloid volume administer 200 05/20/25 16:57 [email or web address] (ml) Colloids volume administered ( ml) Blood Product volume administered (ml) Total IV fluid infused 200 05/20/25 16:57 [email or web address] Anesthesia Postop Eval I: Summary Notes Anesthesia Complication No 05/20/25 16:57 [email or web address] Anesthesia Complication Comment: Post-operative progress note Anesthesia: Postop Eval II Evaluation Mental status: Awake and Calm Pain Level: 1 nausea: No Vomiting: No Complications Anesthesia Complication: No 05/20/252118 <Electronically signed by Zachary [email or web address] MD> Date _ Zachary Rodriguez MD Cosigner Signature: Date CC: ~ Signed [facility] Work Phone: 1(752) 321-747407-02-2025 Consult note Author [facility] Note Date/Time May 20, 2025 4:57p m [facility] Medical Records Department [address] [place] [address] Anesthesia Postop Eval I 05/20/251656 MR#: [id number] Acct: [id number] Name: GELY FULLER Rep #:[id number] : 1950 75 From: Jw iqbal CRNA PCP: Dr. Rishi Vasquez, DO Status:AD M IN Y Race: C Location: [place] [address] Anesthesia: Postop Eval I Current Vital Signs [...] Jw segal CRNA> Date _ Jw Victoria CRNA Cosigner Signature: Date CC: ~ Signed [facility] Work Phone: 1(238) 552-795207-02-2025 Progress note Author Michaela Joshua [facility] Note Date/Time May 20, 2025 4:41p m [facility] Medical Records Department [address] [place] [address] Progress Note - Hospitalist 05/20/25732 MR#: [id number] Acct: [id number] Name: GELY FULLER Rep #:[id number] : 1950 75 From: Michaela Joshua DO PCP: Dr. Rishi Vasquez, DO Status:AD M IN Location: CA3 EA385-5 Reason for Visit Reason for Visit: Generalized [...] on admission Charges/Coding Visit Charges Inpatient E&M: 47898 Subs Hosp L2 05/20/25 1641 <Electronically signed by Michaela Joshua DO> Cosigner Signature (if applicable): CC: ~ Signed [facility] Work Phone: 1(458) 633-714107-02-2025 Consult note Author Zachary Rodriguez [facility] Note Date/Time May 20, 2025 3:37p m [facility] Medical Records Department [address] [place] [address] Pre-Anesthesia Evaluation 05/20/25 1526 MR#: [id number] Acct: [id number] Name: GELY FULLER Rep #:[id number] : 1950 75 From: Zachary Rodriguez MD PCP: Dr. Rishi Vasquez, DO Status:AD M IN Y Race: C Location: [place] [address] ASA Classification* ASA Classification ASA Classification: 3 [...] 05/20/25 Magnesium 2.5 mg/dL (1.5-2.2) H 05/19/25 06:05/19/25 Phosphorus 3.7 mg/dL (2.7-4.5) 05/19/25 06:21 05/19/25 [...] left ankle. 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 Hx Hospitalization Yes: 02/2025 FELL 05/08/25 10:01 [...] take am of surgery PONV PONV - wedding planning internship: PONV - wedding planning internship Female HX of Motion Sickness HX of N/V After Surgery Non-Smoker Duration of Surgery greater than 60 minutes Number of Risk Factors PONV Score Height & Weight Height & Weight: Anesthesia: Height & Weight Height 5 ft 6 in 05/20/25 12:58 Weight: 73.2 kg 05/20/25 12:58 Body Mass Index (BMI) 26.0 05/20/25 12:58 Respiratory Assessment Respiratory Assessment - wedding planning internship: Respiratory Tract Infection Hx - wedding planning internship Hx Respiratory Tract Infection No 05/20/25 08:47 STOP Sleep Apnea STOP Sleep Apnea - wedding planning internship: STOP Sleep Apnea - wedding planning internship Hx Hypertension Yes 05/18/25 11:21 Hx Sleep [...] 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 planning internship Tobacco Use Cigarettes 04/02/24 09:13 Smoking Status Former smoker 05/18/25 02:15 Hx Tobacco Use No 05/18/25 02:15 Years Smoking Packs Smoked per Day Smoking Cessation Date was Yes - quit smoking within 05/18/25 02:15 within the last 15 years years Hx Smoking Cessation Date 01/01/13 05/18/25 02:15 Hx Smoking Cessation No 05/18/25 02:15 Counseling Hematologic Medial History Hematologic Hx - wedding planning internship: Hematologic Medical Hx - wellhead pumper Hx of Blood Transfusion Yes 05/18/25 02:15 [...] confused, unrespo /Reproduction History /Reproductive History - wedding planning internship: /Reproductive Hx- wedding planning internship Hx Now No 05/19/25 03:12 Gestational Age (in weeks): EDC: Hx Hx Para Hx Section SAB No 05/18/25 03:12 Active Medications Active Medications: Current Medications Generic Name Dose Route Start Last Admin Trade Name Freq PRN Reason Stop Dose Admin Acetaminophen 650 mg 05/18/25 03:19 05/20/25 03:32 Acetaminophen 325 Mg Tablet PO 650 mg Q4H PRN PRN Administration Fever, pain 1-1010 Al Hydroxide/Mg Hydroxide 30 ml 05/18/25 03:19 [...] 75 Mg Tablet PO Not Given DAILY [facility] Collagenase 1 applic 05/18/25 10:00 05/20/25 08:44 Collagenase 30gm Tube TOPICAL Not Given DAILY [facility] Protocol Ferrous Sulfate 325 mg 05/18/25 12:00 05/20/25 11:44 Ferrous Sulfate 325 Mg Tablet PO Not Given DAILY@1200 [facility] Glucagon 1 mg 05/18/25 03:19 Glucagon 1 Mg/Ml Syringe IM X1 PRN HYPOGLYCEMIA Protocol Guaifenesin 20 ml 05/18/25 03:19 Guaifenesin 10 Ml Udc (200mg/10ml) PO Q4H PRN PRN COUGH Heparin Sodium (Porcine) 5,000 unit 05/19/25 14:00 05/20/25 11:49 Heparin Injection (Vial) 5,000 Unit/Ml Vial SC Not Given Q8 [facility] Hydralazine HCl 10 mg 05/18/25 03:19 Hydralazine [...] 100 Unit/Ml Insuln.Pen SC Not Given ACHS [facility] Protocol L-Arginine/L-Glutamine/Calcium HMB 1 packet 05/18/25 17:00 05/20/25 06:39 Davion (Unflavored) Packet PO Not Given BIDCM [facility] Linezolid 600 mg 05/18/25 22:00 05/20/25 11:23 Linezolid 600 Mg Tablet PO Not Given BID [facility] Melatonin 3 mg 05/18/25 03:19 Melatonin 3 Mg Tablet PO QHS PRN PRN INSOMNIA Metaxalone 400 mg 05/20/25 13:59 Metaxalone 800 Mg Tablet PO TID PRN MUSCLE SPASM Metoprolol Succinate 12.5 mg 05/19/25 13:00 05/20/25 09:39 Metoprolol(Xl)Succ 25 Mg Tablet PO Not Given DAILY [facility] Protocol Ondansetron HCl 4 mg 05/18/25 03:19 Ondansetron 4 Mg/2 Ml Vial IV Q8H PRN PRN NAUSEA/VOMITING Pregabalin 100 mg 05/19/25 15:30 05/20/25 13:40 Pregabalin 50 Mg Capsule PO Not Given TID [facility] [facility] Prochlorperazine Edisylate 5 mg 05/18/25 03:19 Prochlorperazine [...] edema History of echocardiogram Fall 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 05/20/25 0340 <Electronically signed by Zachary mcguire MD> Date _ Zachary Rodriguez MD [facility] Signature: Date CC: ~ Signed [facility] Work Phone: 1(140) 262-558407-02-2025 Procedure [facility] 05-20-2025 Progress note Author Jason Polk [facility] Note Date/Time May 20, 2025 12:06 pm [facility] Medical Records Department [address] [place] [address] Progress Note - Infect Disease 05/20/25 1204 MR#: [id number] Acct: [id number] Name: GELY FULLER Rep #:[id number] : 1950 75 From: Jason Polk MD PCP: Dr. Rishi Vasquez, DO Status:AD M IN Location: [facility] [id number] ID ID: Route of nutrition/ use of supplements: [] Nutritional Intake: [] IV Site: [] Gonzalez Catheter: [] Patient out of bed to [...] Cosigner Signature (if applicable): CC: ~ Signed [facility] Work Phone: 1(317) 513-695807-02-2025 Progress note Author Patel Irene [facility] Note Date/Time May 20, 2025 7:53a m [facility] Medical Records Department [address] [place] [address] Progress Note - Surgery 05/20/25 0746 MR#: [id number] Acct: [id number] Name: GELY FULLER Rep #:[id number] : 1950 75 From: Patel Abraham PM PCP: Dr. Rishi Vasquez, DO Status:AD M IN Location: [facility] WK105-8 Subjective Subjective Ms. Fuller is a 75-year-old diabetic female seen at [...] Cosigner Signature (if applicable): CC: ~ Signed [facility] Work Phone: 1(313) 448-567107-01-2025 Progress note Author Jason Polk [facility] Note Date/Time May 19, 2025 2:07p m [facility] Medical Records Department [address] [place] [address] Progress Note - Infect Disease 05/19/251405 MR#: [id number] Acct: [id number] Name: GELY FULLER Rep #:[id number] : 1950 75 From: Jason Polk MD PCP: Dr. Rishi Vasquez, DO Status:AD M IN Location: ICU CVICU20 - ID ID: Route of nutrition/ use of supplements: [] Nutritional Intake: [] IV Site: [] Gonzalez Catheter: [] Patient is alert and responsive. [...] Cosigner Signature (if applicable): CC: ~ Signed [facility] Work Phone: 1(458) 536-822707-01-2025 Progress note Author Michaela Joshua [facility] Note Date/Time May 19, 2025 12:55 pm [facility] Medical Records Department [address] [place] [address] Progress Note - Hospitalist 05/19/25 1246 MR#: [id number] Acct: [id number] Name: GELY FULLER Rep #:[id number] : 1950 75 From: Michaela Joshua DO PCP: Dr. Rishi Vasquez, DO Status:AD M IN Location: ICU CVICU [...] 73.3 H, Lymph % (Auto) 13.7 L, Lea % (Auto) 10.4 H, Eos % (Auto) [...] or other follow up imaging. Reading Location: [place] [address] Physical Exam Const alert, oriented x3 and [...] on admission Charges/Coding Visit Charges Inpatient E&M: 25171 Subs Hosp L2 05/19/25 5618 <Electronically signed by Michaela Joshua DO> Cosigner Signature (if applicable): CC: ~ Signed [facility] Work Phone: 1(759) 461-566507-01-2025 Progress note Author Jacinto Tamez [facility] Note Date/Time May 19, 2025 8:28a m [facility] Medical Records Department [address] [place] [address] Progress Note - Network Security Engineer 05/19/25 0637 MR#: [id number] Acct: [id number] Name: GELY FULLER Melinda Rep #:[id number] : 1950 75 From: Jacinto Tamez DO [...] noted above. This note was generated with [employer] dictation software. It may contain incorrectwords, spelling, [...] 73.3 H, Lymph % (Auto) 13.7 L, Lea % (Auto) 10.4 H, Eos % (Auto) [...] with CT. Degenerative bony changes Reading Location: [facility] Chest CTA 05/18/25 07:26 IMPRESSION: There is a 0.5 cm solid nodule in the right mid lung, image 131/244. There is a 0.4 cm solid nodule in the right mid lung, image 115/244. Follow-up is recommended. There is atelectasis with a trace effusion at the left lung base. There is no visible pulmonary embolus. Reading Location: [facility] Ankle X-Ray 05/18/25 13:30 IMPRESSION: Severe pes [...] or other follow up imaging. Reading Location: [place] [address] Physical Exam Const alert, oriented x3 and [...] affect normal Charges/Coding Visit Charges Inpatient E&M: 51517 Subs Hosp L2 05/19/25 0828 <Electronically signed by aJcinto Tamez DO> Cosigner Signature (if applicable): CC: ~ Signed [facility] Work Phone: 1(182) [phone] Consult note Author Patel Irene [facility] Note Date/Time May 19, 2025 7:01a alexandria [facility] Medical Records Department [address] [place] [address] Consultation 05/18/25 0659 MR#: [id number] Acct: [id number] Name: GELY FULLER Rep #:[id number] : 1950 75 From: Patel Abraham PM [...] lower extremity full-thickness wound infection HPI Narrative: GEYL FULLER, is a 75 F w/ PMHx: CAD, [...] by vascular surgery. She presented to the [facility] ED on 05/18/2025 with generalized [...] pedal complaints at this time. [facility] Medical History (Updated 05/18/25 @ 16:[address] Michaela Joshua, ) Other specified peripheral vascular diseases History of MRSA infection Pressure ulcer Ambulates with cane Shortness of breath on exertion History of edema History of echocardiogram Fall Atherosclerosis of [place] artery of both lower extremities with gangrene [...] stage 3 Atherosclerosis of coronary artery of [place] heart without angina pectoris Hyperlipidemia Peripheral vascular [...] 80.8 H, Lymph % (Auto) 7.4 L, Lea % (Auto) 10.6 H, Eos % (Auto) [...] Clarity Cloudy, Urine pH 5.0, Ur Specific [place] 1.020, Urine Protein 100 H, Urine Glucose [...] 76.2 H, Lymph % (Auto) 8.1 L, Lea % (Auto) 14.6 H, Eos % (Auto) [...] IMPRESSION: No acute chest findings. Reading Location: [place] [address] Foot X-Ray 05/17/25 22:35 IMPRESSION: Possible osteoarthritis, 4th metatarsal head. Soft tissue swelling, without obvious soft tissue gas. Possible cellulitis. Reading Location: [facility]-2 05/19/25 0701 <Electronically signed by Patel Irene DPM> Cosigner Signature (if applicable): CC: Dr. Rishi Vasquez, DO; Dr. Jerri Castillo, DO~ Signed [facility] Work Phone: 1(285) 280-582506-30-2025 Progress note Author Michaela Joshua [facility] Note Date/Time May 18, 2025 4:24 pm [facility] Medical Records Department [address] [place] [address] Progress Note - Hospitalist 05/18/25 0714 MR#: [id number] Acct: [id number] Name: GELY FULLER Rep #:[id number] : 1950 75 From: Michaela Joshua DO PCP: Dr. Rishi Vasquez, DO Status:AD M IN Location: ICU CVICU [...] 80.8 H, Lymph % (Auto) 7.4 L, Lea % (Auto) 10.6 H, Eos % (Auto) [...] Clarity Cloudy, Urine pH 5.0, Ur Specific [place] 1.020, Urine Protein 100 H, Urine Glucose [...] 76.2 H, Lymph % (Auto) 8.1 L, Lea % (Auto) 14.6 H, Eos % (Auto) [...] IMPRESSION: No acute chest findings. 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 Soft tissue swelling, without obvious soft tissue gas. Possible cellulitis. Reading Location: [facility]-2 Assessment & Plan Assessment/Plan (1) Non-pressure chronic [...] Response to fluids: Fluid responsive hypotension 05/18/25 6604 <Electronically signed by Michaela Joshua DO> Cosigner Signature (if applicable): CC: ~ Signed [facility] Work Phone: 1(165) 851-160506-30-2025 Consult note Author Russell Clement [facility] Note Date/Time May 18, 2025 1:07 pm [facility] Medical Records Department [address] [place] [address] Consultation - Surgical 05/18/25 1257 MR#: [id number] Acct: [id number] Name: GELY FULLER Rep #:[id number] : 1950 75 From: Russell Clement MD PCP: Dr. Rishi Vasquze DO Status:AD M IN Location: ICU CVICU20 1-[address] Russell Clement MD on 05/18/25 at 1307 Visit Charges Inpatient E&M: 96450 Init Hosp L3 05/18/25 1307<Electronically signed by Russell Clement MD> Cosigner Signature (if applicable): cc: Dr. Rishi Vasquez DO; Dr. Jerri Castillo DO ~* Signed Assessment & Plan Assessment/Plan (1) 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: QUALIFIERS: Peripheral atherosclerosis artery type: [place] artery Lower extremity ulceration location: midfoot Qualified Code(s): I70.234 - Atherosclerosis of [place] arteries of right leg with ulceration of heel and midfoot; I70.244 - Atherosclerosis of [place] arteries of left leg with ulceration of heel and midfoot PLAN: -wounds stable and do not appear to be etiology of sepsis -u/a positive, culture pending -plan remains for open revasc next Sunday HPI Consult Data Date of Consult: 05/18/25 HPI Narrative HPI Narrative: GELY FULLER, is a 75 F who presents with [...] prior to her fall she felt at [facility]. [facility] Medical History (Updated 05/18/25 @ 13:[address] 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 Reading Location: [place] [address] Foot X-Ray 05/17/25 22:35 IMPRESSION: Possible osteoarthritis, 4th metatarsal head. Soft tissue swelling, without obvious soft tissue gas. Possible cellulitis. Reading Location: [place] [address] Abdomen/Pelvis CT 05/18/25 07:26 IMPRESSION: Cholelithiasis, no [...] with CT. Degenerative bony changes Reading Location: [id number] Chest CTA 05/18/25 07:26 IMPRESSION: There is a 0.5 cm solid nodule in the right mid lung, image 131/244. There is a 0.4 cm solid nodule in the right mid lung, image 115/244. Follow-up is recommended. There is atelectasis with a trace effusion at the left lung base. There is no visible pulmonary embolus. Reading Location: [facility] 05/18/25 1306 <Electronically signed by Russell Clement MD> Cosigner Signature (if applicable): CC: Dr. Rishi Vasquez, DO; Dr. Jerri Castillo, DO~ Signed [facility] Work Phone: 1(778) 715-120706-30-2025 Radiology Diagnostic study [facility]06-30-2025 Consult note Author Jacinto Tamez [facility] Note Date/Time May 18, 2025 12:3 4pm [facility] Medical Records Department [address] [place] [address] Consultation - Network Security Engineer 05/18/25 0827 MR#: [id number] Acct: [id number] Name: GELY FULLER Rep #:[id number] : 1950 75 From: Jacinto Tamez DO [...] noted above. This note was generated with [employer] software. It may contain incorrectwords, spelling, and [...] patient has never been evaluated by a director check, nor has she ever been formally diagnosed [...] her transfer to the ICU. [facility] Medical History (Updated 05/18/25 @ 07:[address] 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 Soft tissue swelling, without obvious soft tissue gas. Possible cellulitis. Reading Location: [facility] Sepsis Attestation Sepsis Alert: Yes Sepsis Attestation: [...] responsive hypotension Charges/Coding Visit Charges Inpatient E&M: 52520 Init Hosp L3 05/18/25 1234 <Electronically signed by Jacinto Tamez DO> Cosigner Signature (if applicable): CC: Dr. Rishi Vasquez DO; Dr. Jerri Castillo DO~ Signed [facility] Work Phone: 1(875) [phone] Consult note Author Jason Polk [facility] Note Date/Time May 18, 2025 12:3 3pm [facility] Medical Records Department [address] [place] [address] Consultation - Infectious Dx 05/18/25 1227 MR#: [id number] Acct: [id number] Name: GELY FULLER Rep #:[id number] : 1950 75 From: Jaosn Polk MD PCP: Dr. Rishi Vasquez DO [...] Consultation: Diabetic foot wounds HPI Narrative: GELY FULLER, is a 75 F who presents multiple [...] reviewed. Denies any gastrointestinal distress. [facility] Medical History (Updated 05/18/25 @ 07:[address] 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 Reading Location: [facility] Foot X-Ray 05/17/25 22:35 IMPRESSION: Possible osteoarthritis, 4th metatarsal head. Soft tissue swelling, without obvious soft tissue gas. Possible cellulitis. Reading Location: [facility] Abdomen/Pelvis CT 05/18/25 07:26 IMPRESSION: Cholelithiasis, no [...] with CT. Degenerative bony changes Reading Location: [facility] Chest CTA 05/18/25 07:26 IMPRESSION: There [...] Vasquez DO; Dr. Jerri Castillo DO~ Signed [facility] Work Phone: 1(999) [phone] Radiology Diagnostic study [facility]06-30-2025 Radiology Diagnostic study [facility]06-30-2025 Discharge summary Author Jerri Castillo [facility] Note Date/Time May 18, 2025 7:01 am [facility] Medical Records Department [address] [place] [address] Emergency Department Summary 05/17/25 MR#: [id number] Acct: [id number] Name: GELY FULLER Rep #:[id number] : 1950 75 From: Jerri Castillo DO PCP: Dr. Rishi Vasquez DO Status:AD M IN Location: [place] [address] HPI History of Present Illness Chief Complaint: [...] she was started on antibiotics by her spring floor service worker Dr. Irene. Patient unsure the name of the antibiotic. 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 Reading Location: [place] [address] Foot X-Ray 05/17/25 22:35 IMPRESSION: Possible osteoarthritis, 4th metatarsal head. Soft tissue swelling, without obvious soft tissue gas. Possible cellulitis. Reading Location: [place] [address] Discharge Plan Triage Chief Complaint: Fall ED [...] DO [Primary Care Provider] - Print Language: Colombian Disposition Disposition: Acute Care Hospital [facility] What to do if you have Problems For any increased pain, shortness of breath, bleeding, nausea or vomiting, chestpain, or any unexpected problems, contact your Primary Care Provider. Call [facility] ([phone]) or report to the closest Emergency Room. Call 911 if necessary. 05/18/25 0701 <Electronically signed by Jerri Castillo DO> Cosigner Signature (if applicable): CC: Dr. Rishi Vasquez DO ~ Signed [facility] Work Phone: 1(668) 727-293406-30-2025 [facility]06-30-2025 Consult note Author Rick Barth [facility] Note Date/Time May 18, 2025 3:45 am [facility] Medical Records Department [address] [place] [address] Pharmacokinetic/Renal -Consult 05/18/254 MR#: [id number] Acct: [id number] Name: GELY FULLER Rep #:[id number] : 1950 75 From: Rick Anders od PCP: Dr. Rishi Vasquez DO Status:AD M IN Y Location: [facility] [id number] Consult Antibiotic Management Pharmacy has been consulted [...] and time ordered]: 05/20 @ 0300 05/18/25 0678 <Electronically signed by Rick ramirez> Date _ Rick Barth Cosigner Signature (if applicable): Date CC: ~ Signed [facility] Work Phone: 1(386) 324-949806-30-2025 History and physical note Author Maddie Merchant [facility] Note Date/Time May 18, 2025 2:32 am [facility] Medical Records Department [address] [place] [address] H&P Exam - Hospitalist 05/18/25 0201 MR#: [id number] Acct: [id number] Name: GELY FULLER Rep #:[id number] : 1950 75 From: Maddie Merchant MD PCP: Dr. Rishi Vasquez, DO Status:AD M IN Location: [facility] CP016-4 HPI - General General Date of Admission: [...] has been rubbing who presents to the [facility] ED on 05/18/2025 with generalized [...] possibly cellulitis with postoperative changes. 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 Reading [facility]-Ray 05/17/25 22:35 IMPRESSION: Possible osteoarthritis, 4th metatarsal head. Soft tissue swelling, without obvious soft tissue gas. Possible cellulitis. Reading Location: [facility]-2 Assessment & Plan Assessment/Plan (1) Acute UTI: [...] has been rubbing who presents to the [facility] ED on 05/18/2025 with generalized [...] 16 minutes. Charges/Coding Visit Charges Inpatient E&M: 94097 Init Hosp L3 Procedures Hospitalists Procedures: 98252 Advncd Care Plan 30 Min 05/18/25 0232 <Electronically signed by Maddie Merchant MD> Cosigner Signature (if applicable): CC: Dr. Maddie Merchant MD; Dr. Rishi Vasquez DO~ Signed [facility] Work Phone: 1(508) [phone] Radiology Diagnostic study [facility]06-29-2025 Radiology Diagnostic study [facility]06-19-2025 Telephone encounter Note* Telephone Encounter - Alexandria Jacome RN - 05/07/2025 1:07 PM EDT Pt phoned back and states she was able to get 5 days of glipizide from pharmacy. Pt asking pcp to change the medication since her insurance does not cover it. [facility]06-19-2025 Miscellaneous Notes* Telephone Encounter - Alexandria Jacome RN - 05/07/2025 1:07 PM EDT [...] this plan. Prior Authorization not available. Payer: [employer] [phone] Note from payer: This drug/product is not covered under the pharmacy benefit. Prior Authorization is not available. * Telephone Encounter - Any Rodriguez LPN - 05/06/2025 1:17 PM EDT Electronic PA requested. * Telephone Encounter - Sara Solis RN - 05/06/2025 12:25 PM EDT Pt called in and reports she went in to [facility] and they told her that her insurance doesn't cover the Glipizide 5 mg tablets without a PA. Pt states she got them before and her insurance covered them. Pt states she paid out of pocket for 5 days worth of pills. Prior Authorization Documentation Prior authorization requested for the following medication: Medication: Glipizide Provider: Sushma Artis NP Insurance Company Name: [facility] [employer] Phone number:[phone] Patient ID number: [id number] Pharmacy Name: [facility] Telephone number: [phone] [facility] Telephone encounter Note * Telephone Encounter - Sara Solis, RN - 05/07/2025 11:28 AM EDT Called and left a detailed voicemail notifying patient of providers message. Clinic phone number was left for the patient to call back if she would like the provider to change her medication. Sara Solis RN [facility]06-18-2025 Telephone encounter Note* Telephone Encounter - Rishi Vasquez DO - 05/06/2025 8:20 PM EDT Agree with below Rishi Vasquez DO [facility]06-18-2025 Telephone encounter Note* Telephone Encounter - Any Rodriguez LPN - 05/06/2025 2:55 PM EDT Called pt and message left she can either ask the pharmacy to run the rx with a discount card or call back and ask the provider to change the medicine. [facility]06-18-2025 Telephone encounter Note* Telephone Encounter - Any Rodriguez LPN - 05/06/2025 1:20 PM EDT Images from the original note were not included. This is the PA response. Close reason: Product not covered by this plan. Prior Authorization not available. Payer: [employer] [phone] Note from payer: This drug/product is not covered under the pharmacy benefit. Prior Authorization is not available. [facility]06-18-2025 Telephone encounter Note* Telephone Encounter - Any Rodriguez LPN - 05/06/2025 1:17 PM EDT Electronic PA requested. [facility]06-18-2025 Telephone encounter Note* Telephone Encounter - Sara Solis RN - 05/06/2025 12:25 PM EDT Pt called in and reports she went in to [facility] and they told her that her insurance doesn't cover the Glipizide 5 mg tablets without a PA. Pt states she got them before and her insurance covered them. Pt states she paid out of pocket for 5 days worth of pills. Prior Authorization Documentation Prior authorization requested for the following medication: Medication: Glipizide Provider: Sushma Artis NP Insurance Company Name: [employer] [employer] Phone number:[phone] Patient ID number: [id number] Pharmacy Name: [facility] Telephone number: [phone] [facility]06-12-2025 Instructions* Patient Instructions* Ld Artis APRN.CNP - 04/30/2025 11:41 AM EDT Send me a blood sugar log in 2 weeks after taking the 10mg of glucotrol xl (5mg twice per day) Follow up as already scheduled with Dr Vasquez documented in this encounterWvumedicine [facility]06-[facility]-2025 NoteHNO ID: [id number] Author: LD ARTIS APRN.CNP Service: ? Author Type: Nurse Practitioner [...] wound dressing changes - Recent visit to spring floor service worker Dr. 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 Ortiz [facility]-03/25/2020 left mild, right moderate Multiple [...] ROTATOR CUFF REPAIR 03/11/14 Dr. Regi [facility] SLCTV CATHJ EA 1ST ORD ABDL [...] Take 1 tablet by mouth once daily. Mcsjtizz-Nxzg-Tcv-Folic Acid 18-0.4 mg tab Take 1 tablet by mouth once daily. omega-3 fatty acids 1,000 mg cap Take 1 capsule by mouth once d (more content not included)...[facility]06-12-2025 History of Present illness Narrative* Ld Artis APRN.SIX HORSE HITCH DRIVER - 04/30/2025 11:26 AM EDT HISTORY OF [...] wound dressing changes - Recent visit to spring floor service worker Dr. 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 Ortiz [facility]-03/25/2020 left mild, right moderate Multiple thyroid nodules last US 01/2015 Peripheral artery disease due to Diabetes mellitus, Dr. Kwaku Moscoso Rotator cuff syndrome of left shoulder Dr. Regi Montes [facility] PAST SURGICAL HISTORY Procedure Laterality [...] ROTATOR CUFF REPAIR 03/11/14 Dr. Regi [facility] SLCTV CATHJ EA 1ST ORD ABDL [...] Take 1 tablet by mouth once daily. Pygqacyx-Suof-Esm-Folic Acid 18-0.4 mg tab Take 1 tablet [...] or as needed for worsening/no improvement. Ld Artis APRN.SIX HORSE HITCH DRIVER Recording using [email or web address] software for draft documentation of the visit was discussed with the patient/authorized sales representative advertising; all questions welcomed and answered. Patient/authorized sales representative advertising agreed to proceed documented in this encounterWvumedicine [facility]06-09-2025 Radiology Diagnostic study note [facility] Imaging Services [address] [place], [place] [address] Thyroid MR#: [id number] Acct: [id number] Name: JONNYGELY Rep #: [id number] : 1950 F 75 From: Courtney Bright MD PCP: Dr. Rishi Vasquez, DO Status: RE G CLI Study:Thyroid Date of Exam: 04/27/25 Exam# [id number] Ordering Dr: Alla Renee MD PROCEDURE: THYROID, [...] Paper of the ACR TI-RADS Committee, 2017 ([email or web address]) Reading Location: [id number] CC: Dr. Rishi Vasquez, DO; Dr. Ciaran Renee MD ~ Doughnut Maker: Signed [facility]05-29-2025 Telephone encounter Note* Telephone Encounter - Hina Man RN - 04/16/2025 9:31 AM EDT Jessika calling from [facility] to report plan of care for patient and correction will continue visit patient 1 time a week for 5 weeks. long-term will work with patient on wound care to bilateral lower extremities. Patient is being follow by Dr. Irene for wound care. No call back needed. Hina Man RN [facility]05-29-2025 Miscellaneous Notes* Telephone Encounter - Hina Man RN - 04/16/2025 9:31 AM EDT Jessika calling from [facility] to report plan of care for patient and correction will continue visit patient 1 time a week for 5 weeks. long-term will work with patient on wound care to bilateral lower extremities. Patient is being follow by Dr. Irene for wound care. No call back needed. Hina Man RN documented in this encounterW[facility]umed[facility]05-20-[facility]25 Telephone encounter Note * Telephone Encounter - [...] vomiting Protocols used: Diabetes - High Blood Zmemv-EXUJT-PO [facility]05-20-2025 Miscellaneous Notes* Telephone Encounter - Clemencia Chapman [...] vomiting Protocols used: Diabetes - High Blood Aeavp-HZBCI-NW documented in this encounterWvumedicine [facility]05-09-2025 Instructions* Patient Instructions* Yumiko Whitehead APRN.SIX HORSE HITCH DRIVER - 03/27/2025 10:36 AM EDT WHAT YOU [...] review all the medicines you take, even qnwr-fzt-grvthef medicines. As you get older, the way [...] have certain medical conditions. documented in this encounterW[facility]05-09-2025 History of Present illness Narrative* Yumiko Whitehead APRN.CNP - 03/27/2025 10:00 AM EDT 03/26/2025 Patient presents with: ER F/U: [facility] ED -03/20/25 Multiple falls, gangrene SADIE feet SUBJECTIVE: This is a 75 year old that is here today for Above Complaints. HOSPITAL/ER FOLLOW UP: Reason for visit: Recurrent falls, Which facility: [facility] transferred to [facility] Date of visit: 03/07/2025-03/11/2025 [facility] then to [facility] 03/11/2025-03/19/2025 Diagnosis: UTI, Rhabdomyolysis, SHAYY, Chronic bilateral [...] mellitus (HCC) Coronary artery disease Dr. Ch Lead Data Entry Operator, 90% blockage- unable to do stenting Diabetes mellitus type 2 in obese Diabetic feet (HCC) Gangrene (HCC) 2012 RIGHT FOOT Hypertension Mild non proliferative diabetic retinopathy (HCC) 06/11/2013 Both eyes, Dr. Ortiz [facility]-03/25/2020 left mild, right moderate Multiple thyroid nodules last US 01/2015 Peripheral artery disease (HCC) due to Diabetes mellitus, Dr. Kwaku Moscoso Rotator cuff syndrome of left shoulder Dr. Deluna [facility] ALLERGIES Sulfa (Sulfonamide Antibiotics) MEDICATIONS Current [...] Take 1 tablet by mouth once daily. Gsljxprb-Xlqw-Yiv-Folic Acid 18-0.4 mg tab Take 1 tablet [...] which included preparing to see the patient, zqhq-lz-uyac patient care, completing clinical documentation, obtaining and/or reviewing separately obtained history, performing a medically appropriate examination, counseling and educating the pat ient/family/caregiver, and ordering medications, tests, or procedures. documented in this encounterWvumedicine [facility]05-09-2025 NoteHNO ID: [id number] Author: YUMIKO WHITEHEAD APRN.CNP Service: ? Author Type: Nurse Practitioner Type: Progress Notes Filed: 03/27/2025 11:01 Note Text: 03/26/2025 Patient presents with: ER F/U: [facility] ED -03/20/25 Multiple falls, gangrene SADIE feet SUBJECTIVE: This is a 75 year old that is here today for Above Complaints. 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 Ortiz [facility]-03/25/2020 left mild, right moderate Multiple thyroid nodules last US 01/2015 Peripheral artery disease (HCC) due to Diabetes mellitus, Dr. Kwaku Moscoso Rotator cuff syndrome of left shoulder Dr. Deluna [facility] ALLERGIES Sulfa (Sulfonamide Antibiotics) MEDICATIONS Current [...] Take 1 tablet by mouth once daily. Yhxzkxbr-Yuwg-Jqu-Folic Acid 18-0.4 mg tab Take 1 tablet [...] 03/27/2026 Colorectal Cancer Screen (more content not included)...[facility]05-08-2025 Telephone encounter Note* Telephone Encounter - Clary Andres APRN.SIX HORSE HITCH DRIVER - 03/26/2025 1:30 PM EDT Agree. BP will be reassessed at appointment tomorrow. Let us know if not addressed at appointment tomorrow. Thank you, Clary Andres APRN.SIX HORSE HITCH DRIVER [facility] Work Phone: 1(129) 473-168505-08-2025 Miscellaneous Notes* Telephone Encounter - Clary Andres APRN.CNP - 03/26/2025 1:30 PM EDT Agree. BP will be reassessed at appointment tomorrow. Let us know if not addressed at appointment tomorrow. Thank you, Clary Andres APRN.SIX HORSE HITCH DRIVER * Telephone Encounter - Alexandria Jacome RN - 03/26/2025 12:44 PM EDT [facility]- reporting updated POC: plans to see pt [...] is going to talk to provider at [facility] tomorrow about getting a front wheeled walker. No call back needed if pcp agrees. documented in this encounterWvumedicine [facility]05-08-2025 Telephone encounter Note * Telephone Encounter - Alexandria Jacome RN - 03/26/2025 12:44 PM EDT [facility]- reporting updated POC: plans to [...] is going to talk to provider at [facility] tomorrow about getting a front wheeled walker. No call back needed if pcp agrees. [facility]05-06-2025 Telephone encounter Note* Telephone Encounter - Rishi Vasquez DO - 03/24/2025 5:38 PM EDT Noted Rishi Vasquez DO [facility]05-06-2025 Miscellaneous Notes* Telephone Encounter - Rishi Vasquez DO - 03/24/2025 5:38 PM EDT Noted Rishi Vasquez DO * Telephone Encounter - Clemencia Chapman RN - 03/24/2025 3:00 PM EDT Ishaan PT calling from [facility] to report plan of care for patient and PT will visit patient 2 times a week for two weeks. PT will work with patient on functional mobility. No call back needed. Clemencia Chapman RN documented in this encounterW[facility]umed[facility]05-06-2025 Telephone encounter Note * Telephone Encounter - Clemencia Chapman RN - 03/24/2025 3:00 PM EDT Ishaan PT calling from [facility] to report plan of care for patient and PT will visit patient 2 times a week for two weeks. PT will work with patient on functional mobility. No call back needed. Clemencia Chapman, GORGE [facility]05-06-2025 Telephone encounter Note* Telephone Encounter - Jesenia Mcgee PA-C - 03/24/2025 12:10 PM EDT Noted Jesenia Mcgee PA-C [facility] Work Phone: 1([phone]) 460-924505-06-2025 Miscellaneous Notes* Telephone Encounter - Jesenia Mcgee PA-C - 03/24/2025 12:10 PM EDT Noted Jesenia Mcgee PA-C * Telephone Encounter - Melly Pinon LPN - 03/23/2025 1:30 PM EDT Tatum with [facility] Nursing calls to report she saw pt today for start of care. Nursing will see pt once a week x 2 weeks then twice a week x 1 week, then once a week x 1. Nursingwill be doing wound care and teaching wound prevention and education. Melly Pinon LPN documented in this encounterWvumedicine [facility]05-05-2025 Telephone encounter Note * Telephone Encounter - Melly Pinon LPN - 03/23/2025 1:30 PM EDT Tatum with [facility] Nursing calls to report she saw pt today for start of care. Nursing will see pt once a week x 2 weeks then twice a week x 1 week, then once a week x 1. Nursingwill be doing wound care and teaching wound prevention and education. Melly Pinon LPN [facility]05-05-2025 Telephone encounter Note* Telephone Encounter - Clemencia Chapman RN - 03/23/2025 8:29 AM EDT Call placed to Yvonne and notified of below. Clemencia Chapman RN [facility]05-05-2025 Miscellaneous Notes* Telephone Encounter - Clemencia Chapman RN - 03/23/2025 8:29 AM EDT Call placed to Yvonne and notified of below. Clemencia Chapman RN * Telephone Encounter - Rishi Vasquez DO - 03/20/2025 5:03 PM EDT Yes Rishi Vasquez DO * Telephone Encounter - Clemencia Chapman RN - 03/20/2025 12:53 PM EDT Yvonne with [facility] calls to ask if provider would be willing to follow their discharge orders for SN, PT, OT. Patient discharged home today from [facility] after having hospitalization and rehab for falls and UTI. Call back number is [phone]. Clemencia Chapman RN documented in this encounterWvumedicine [facility]05-02-2025 Telephone encounter Note * Telephone Encounter - Rishi Vasquez DO - 03/20/2025 5:03 PM EDT Yes Rishi Vasquez DO [facility]05-02-2025 Telephone encounter Note* Telephone Encounter - Clemencia Chapman RN - 03/20/2025 12:53 PM EDT Yvonne with [facility] calls to ask if provider would be willing to follow their discharge orders for SN, PT, OT. Patient discharged home today from [facility] after having hospitalization and rehab for falls and UTI. Call back number is [phone]. Clemencia Chapman RN [facility]04-29-2025 [facility]04-29-2025 [facility]04-23-2025 [facility]04-23-2025 Note [facility]04-20-2025 [facility]04-19-2025 Evaluation note* Diagnosis Onset [...] chronic March 07, 2025 4:25pm Atherosclerosis of [place] of both lower extremities with [...] chronic March 11, 2025 5:26pm 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 inactive March 11, 2025 5:26pm Chronic painful diabetic polyneuropathy inactive March 11, 2025 5:26pm Other specified peripheral vascular diseases inactive March 11 5:26pm Atherosclerosis of both lowe r extremities with bilateral ulceration acute April 03, 2025 1 0:32am [facility] Work Phone: 1(846) 159-591604-19-2025 Evaluation note* Diagnosis Onset Date Resolution Status [...] chronic March 07, 2025 4:25pm Atherosclerosis of [place] of both lower extremities with [...] chronic March 11, 2025 5:26pm Atherosclerosis of [place] of both lower extremities with [...] polyneuropathy chronic April 03, 2025 1 0:32am [facility] Work Phone: 1(371) 675-163104-19-2025 Evaluation note* Diagnosis Onset Date Resolution Status [...] chronic March 07, 2025 4:25pm Atherosclerosis of [place] of both lower extremities with [...] chronic March 11, 2025 5:26pm Atherosclerosis of [place] of both lower extremities with [...] 2025 9:17am Atherosclerosis of coronary artery of [place] heart without angina pectoris chronic May 07, 2025 9:17am Essential hypertension chronic Ju ne 2024 9:17am Hyperlipidemia chronic May 07, 2025 9:17am [facility] Work Phone: 1(378) 805-347404-19-2025 Evaluation note* Diagnosis Onset Date Resolution Status [...] chronic March 07, 2025 4:25pm Atherosclerosis of [place] of both lower extremities with [...] chronic March 11, 2025 5:26pm Atherosclerosis of [place] of both lower extremities with [...] 2025 9:17am Atherosclerosis of coronary artery of [place] heart without angina pectoris chronic May 07, 2025 9:17am Essential hypertension chronic Ju ne 2024 9:17am Hyperlipidemia chronic May 07, 2025 9:17am Atherosclerosis of both lowe r extremities with bilateral ulceration acute May 13, 2025 3:35pm PAOD (peripheral arterial occlusive disease) acute May 13 3:35pm Carotid artery stenosis chronic J une 2024 3:35pm Diabetes mellitus with polyneuropathy chronic May 13, 2025 3:35pm Acute UTI acute May 18 2:09am [facility] Work Phone: 1(685) 624-625604-19-2025 Evaluation note* Diagnosis Onset Date Resolution Status [...] chronic March 07, 2025 4:25pm 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 inactive Mandie 19th, 2025 4:25pm Chronic painful diabetic polyneuropathy inactive [...] chronic March 11, 2025 5:26pm Atherosclerosis of [place] of both lower extremities with [...] 2025 9:17am Atherosclerosis of coronary artery of [place] heart without angina pectoris chronic May 07, [...] fat layer exposed chronic May 18 2:09am [facility] Work Phone: 1(415) 461-974604-19-2025 Evaluation note* Diagnosis Onset Date Resolution Status [...] chronic March 07, 2025 4:25pm Atherosclerosis of [place] of both lower extremities with [...] chronic March 11, 2025 5:26pm Atherosclerosis of [place] of both lower extremities with [...] 2025 9:17am Atherosclerosis of coronary artery of [place] heart without angina pectoris chronic May 07, 2025 9:17am Essential hypertension chronic Ju ne 2024 9:17am Hyperlipidemia chronic May 07, 2025 9:17am Atherosclerosis of both lowe r extremities with bilateral ulceration acute May 13, 2025 3:35pm PAOD (peripheral arterial occlusive disease) acute May 13 3:35pm Carotid artery stenosis chronic J une 5 3:35pm Diabetes mellitus with polyneuropathy chronic May [...] fat layer exposed chronic May 18 2:09am [facility] Work Phone: 1(211) 551-501804-19-2025 Evaluation note* Diagnosis Onset Date Resolution Status [...] chronic March 07, 2025 4:25pm Atherosclerosis of [place] of both lower extremities with [...] chronic March 11, 2025 5:26pm Atherosclerosis of [place] of both lower extremities with [...] 2025 9:17am Atherosclerosis of coronary artery of [place] heart without angina pectoris chronic May 07, 2025 9:17am Essential hypertension chronic Ju ne 2024 9:17am Hyperlipidemia chronic May 07, 2025 [...] fat layer exposed chronic May 18 2:09am Fall acute May 22, 2025 1:29pm Generalized weakness acute May 22, 2025 1:29pm Type 2 diabetes mellitus wit h foot ulcer acute May 22, 2025 1 :29pm 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 May 22, 2025 1:29pm [facility] Work Phone: 1(876) 267-891804-19-2025 Evaluation note* Diagnosis Onset Date Resolution Status [...] chronic March 07, 2025 4:25pm Atherosclerosis of [place] of both lower extremities with [...] chronic March 11, 2025 5:26pm 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 inactive March 11, 2025 5:26pm Chronic painful diabetic polyneuropathy inactive March 11, 2025 5:26pm PAOD (peripheral arterial occlusive disease) acute April 03 10:32am Carotid artery stenosis chronic M 2024 10:32am Diabetes mellitus with polyneuropathy chronic April 03, 2025 1 0:32am Atherosclerosis of both lowe r extremities with bilateral ulceration inactive April 03, 2025 1 0:32am Preop cardiovascular exam acute May 07, 2025 9:17am Systolic murmur acute April 9:17am Type 2 diabetes mellitus wit h hyperglycemia acute May 07, 2025 9:17am Atherosclerosis of coronary artery of [place] heart without angina pectoris chronic May 07, 2025 9:17am Essential hypertension chronic Ju 2024 9:17am Hyperlipidemia chronic May 07, 2025 9:17am PAOD (peripheral arterial occlusive disease) acute May 13 3:35pm Carotid artery stenosis chronic J 2024 3:35pm Diabetes mellitus with polyneuropathy chronic May 13, 2025 3:35pm Atherosclerosis of both lowe r extremities with bilateral ulceration inactive May 13, 2025 3:35pm Other specified peripheral vascular diseases acute May 18 2:09am 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 May 18, 2025 2:09am 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 foot with fat layer exposed chronic May 18, 2025 2:09am Non-pressure chronic ulcer o f other part of right foot with fat layer exposed chronic May 18 2:09am Acute hypoxic respiratory failure resolved May 18, 2025 2:09am Acute UTI resolved May 18 2:09am Cellulitis of left ankle resolved May 18, 2025 2:09am Sepsis resolved May 18 2:09am Atherosclerosis of both lowe r extremities with bilateral ulceration inactive May 18, 2025 2:09am Type 2 diabetes mellitus wit h foot ulcer inactive May 18, 2025 2:09am Fall acute May 25, 2025 11:46am Generalized weakness acute May 25, 2025 11:46am Other specified peripheral vascular diseases acute May 25, 2025 11:46am 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 May 25, 2025 11:46am 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 foot with fat layer exposed chronic May 25, 2025 1 1:46am Non-pressure chronic ulcer o f other part of right foot with fat layer exposed chronic May 25, 2025 11:46am Atherosclerosis of both lowe r extremities with bilateral ulceration inactive May 25, 2025 1 1:46am Type 2 diabetes mellitus wit h foot ulcer inactive May 25, 2025 1 1:46am [facility] Work Phone: 1(587) 403-793004-19-2025 Evaluation note* Diagnosis Onset Date Resolution Status [...] chronic March 07, 2025 4:25pm Atherosclerosis of [place] of both lower extremities with [...] chronic March 11, 2025 5:26pm 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 inactive March 11, 2025 5:26pm Chronic painful diabetic polyneuropathy inactive March 11, 2025 5:26pm Other specified peripheral vascular diseases inactive March 11 5:26pm PAOD (peripheral arterial occlusive disease) acute April 03 10:32am Carotid artery stenosis chronic M 2024 10:32am Diabetes mellitus with polyneuropathy chronic April 03, 2025 1 0:32am Atherosclerosis of both lowe r extremities with bilateral ulceration inactive April 03, 2025 1 0:32am Preop cardiovascular exam acute May 07, 2025 9:17am Systolic murmur acute April 9:17am Type 2 diabetes mellitus wit h hyperglycemia acute May 07, 2025 9:17am Atherosclerosis of coronary artery of [place] heart without angina pectoris chronic May 07, 2025 9:17am Essential hypertension chronic Ju 2024 9:17am Hyperlipidemia chronic May 07, 2025 9:17am PAOD (peripheral arterial occlusive disease) acute May 13 3:35pm Carotid artery stenosis chronic J 2024 3:35pm Diabetes mellitus with polyneuropathy chronic May 13, 2025 3:35pm Atherosclerosis of both lowe r extremities with bilateral ulceration inactive May 13, 2025 3:35pm 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 May 18, 2025 2:09am Acute hypoxic respiratory failure resolved May 18, 2025 2:09am Acute UTI resolved May 18 2:09am Cellulitis of left ankle resolved May 18, 2025 2:09am Sepsis resolved May 18 2:09am Atherosclerosis of both lowe r extremities with bilateral ulceration inactive May 18, 2025 2:09am 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 foot with fat layer exposed inactive May 18, 2025 2:09am Non-pressure chronic ulcer o f other part of right foot with fat layer exposed inactive May 18 2:09am Other specified peripheral vascular diseases inactive May 18 2:09am Type 2 diabetes mellitus wit h foot ulcer inactive May 18, 2025 2:09am Acute osteomyelitis of left foot acu te May 25, 2025 11:46am Atherosclerosis of both lowe r extremities with bilateral ulceration inactive May 25, 2025 1 1:46am Non-healing ulcer of right foot inac tive May 25, 2025 11:46am 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 foot with fat layer exposed inactive May 25, 2025 1 1:46am Non-pressure chronic ulcer o f other part of right foot with fat layer exposed inactive May 25, 2025 11:46am Other specified peripheral vascular diseases inactive May 25, 2025 11:46am Peripheral vascular occlusiv e disease inactive May 25, 2025 1 1:46am Type 2 diabetes mellitus wit h foot ulcer inactive May 25, 2025 1 1:46am Fall deleted May 25, 2025 11:46am Generalized weakness deleted May 25, 2025 11:46am [facility] Work Phone: 1([phone]) 863-607704-19-2025 Evaluation note* Diagnosis Onset Date Resolution Status [...] chronic March 07, 2025 4:25pm Atherosclerosis of [place] of both lower extremities with [...] (peripheral arterial occlusive disease) acute March 11, 5:26pm Rhabdomyolysis acute February 5:26pm Type 2 diabetes mellitus wit h hyperglycemia acute March 11, 2025 5:26pm Urinary tract infection acute A pril 2024 5:26pm Diabetes mellitus with polyneuropathy chronic March 11, 2025 5:26pm Hyperlipidemia chronic February 5:26pm Osteomyelitis of left foot chronic March 11, 2025 5:26pm 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 inactive March 11, 2025 5:26pm Chronic painful diabetic polyneuropathy inactive March 11, 2025 5:26pm PAOD (peripheral arterial occlusive disease) acute April 03 10:32am Carotid artery stenosis chronic M ay 2024 10:32am Diabetes mellitus with polyneuropathy chronic April 03, 2025 1 0:32am Atherosclerosis of both lowe r extremities with bilateral ulceration inactive April 03, 2025 1 0:32am Preop cardiovascular exam acute May 07, 2025 9:17am Systolic murmur acute April 9:17am Type 2 diabetes mellitus wit h hyperglycemia acute May 07, 2025 9:17am Atherosclerosis of coronary artery of [place] heart without angina pectoris chronic May 07, 2025 9:17am Essential hypertension chronic Ju 2024 9:17am Hyperlipidemia chronic May 07, 2025 9:17am PAOD (peripheral arterial occlusive disease) acute May 13 3:35pm Carotid artery stenosis chronic J une 2024 3:35pm Diabetes mellitus with polyneuropathy chronic May 13, 2025 3:35pm Atherosclerosis of both lowe r extremities with bilateral ulceration inactive May 13, 2025 3:35pm Other specified peripheral vascular diseases acute May 18 2:09am 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 May 18, 2025 2:09am Acute hypoxic respiratory failure resolved May 18, 2025 2:09am Acute UTI resolved May 18 2:09am Cellulitis of left ankle resolved May 18, 2025 2:09am Sepsis resolved May 18 2:09am Atherosclerosis of both lowe r extremities with bilateral ulceration inactive May 18, 2025 2:09am 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 foot with fat layer exposed inactive May 18, 2025 2:09am Non-pressure chronic ulcer o f other part of right foot with fat layer exposed inactive May 18 2:09am Type 2 diabetes mellitus wit h foot ulcer inactive May 18, 2025 2:09am Acute osteomyelitis of left foot acu te May 25, 2025 11:46am Other specified peripheral vascular diseases acute May 25, 2025 11:46am Atherosclerosis of both lowe r extremities with bilateral ulceration inactive May 25, 2025 1 1:46am Non-healing ulcer of right foot inac tive May 25, 2025 11:46am 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 foot with fat layer exposed inactive May 25, 2025 1 1:46am Non-pressure chronic ulcer o f other part of right foot with fat layer exposed inactive May 25, 2025 11:46am Peripheral vascular occlusiv e disease inactive May 25, 2025 1 1:46am Type 2 diabetes mellitus wit h foot ulcer inactive May 25, 2025 1 1:46am Fall deleted May 25, 2025 11:46am Generalized weakness deleted May 25, 2025 11:46am Acute osteomyelitis of left ankle acute June 01, 2025 6:21pm Acute painful diabetic polyneuropathy acute June 01, 2025 6:21pm Anemia acute June 01 6:21pm Bacteremia acute June 01 6:21pm Debility acute June 01 6:21pm Essential (primary) hypertension acu te June 01, 2025 6:21pm Other specified peripheral vascular diseases acute June 01 6:21pm PAOD (peripheral arterial occlusive disease) acute June 01 6:21pm Type 2 diabetes mellitus wit h hyperglycemia acute June 01, 2025 6:21pm Weakness acute June 01 6:21pm Diabetes mellitus with polyneuropathy chronic June 01, 2025 6:21pm Hyperlipidemia chronic June 01, 2025 6:21pm Anemia acute June 05 5:14pm [facility] Work Phone: 1([phone]) 494-627004-19-2025 Evaluation note* Diagnosis Onset Date Resolution Status [...] left foot chronic March 07, 2025 4:25pm Other specified peripheral vascular diseases resolved March 07 4:25pm Atherosclerosis of [place] of both lower extremities with [...] left foot chronic March 11, 2025 5:26pm Other specified peripheral vascular diseases resolved March 11 5:26pm 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 inactive March 11, 2025 5:26pm Chronic painful diabetic polyneuropathy inactive March 11, 2025 5:26pm PAOD (peripheral arterial occlusive disease) acute April 03 10:32am Carotid artery stenosis chronic M ay 2024 10:32am Diabetes mellitus with polyneuropathy chronic April 03, 2025 1 0:32am Atherosclerosis of both lowe r extremities with bilateral ulceration inactive April 03, 2025 1 0:32am Preop cardiovascular exam acute May 07, 2025 9:17am Systolic murmur acute April 9:17am Type 2 diabetes mellitus wit h hyperglycemia acute May 07, 2025 9:17am Atherosclerosis of coronary artery of [place] heart without angina pectoris chronic May 07, 2025 9:17am Essential hypertension chronic Ju 2024 9:17am Hyperlipidemia chronic May 07, 2025 9:17am PAOD (peripheral arterial occlusive disease) acute May 13 3:35pm Carotid artery stenosis chronic J 2024 3:35pm Diabetes mellitus with polyneuropathy chronic May 13, 2025 3:35pm Atherosclerosis of both lowe r extremities with bilateral ulceration inactive May 13, 2025 3:35pm 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 May 18, 2025 2:09am Acute hypoxic respiratory failure resolved May 18, 2025 2:09am Acute UTI resolved May 18 2:09am Cellulitis of left ankle resolved May 18, 2025 2:09am Other specified peripheral vascular diseases resolved May 18 2:09am Sepsis resolved May 18 2:09am Atherosclerosis of both lowe r extremities with bilateral ulceration inactive May 18, 2025 2:09am 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 foot with fat layer exposed inactive May 18, 2025 2:09am Non-pressure chronic ulcer o f other part of right foot with fat layer exposed inactive May 18 2:09am Type 2 diabetes mellitus wit h foot ulcer inactive May 18, 2025 2:09am Acute osteomyelitis of left foot res olved May 25, 2025 11:46am Other specified peripheral vascular diseases resolved May 25, 2025 11:46am Atherosclerosis of both lowe r extremities with bilateral ulceration inactive May 25, 2025 1 1:46am Non-healing ulcer of right foot inac tive May 25, 2025 11:46am 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 foot with fat layer exposed inactive May 25, 2025 1 1:46am Non-pressure chronic ulcer o f other part of right foot with fat layer exposed inactive May 25, 2025 11:46am Peripheral vascular occlusiv e disease inactive May 25, 2025 1 1:46am Type 2 diabetes mellitus wit h foot ulcer inactive May 25, 2025 1 1:46am Fall deleted May 25, 2025 11:46am Generalized weakness deleted May 25, 2025 11:46am Acute osteomyelitis of left ankle acute June 01, 2025 6:21pm Acute painful diabetic polyneuropathy acute June 01, 2025 6:21pm Anemia acute June 01 6:21pm Bacteremia acute June 01 6:21pm Debility acute June 01 6:21pm Essential (primary) hypertension acu te June 01, 2025 6:21pm PAOD (peripheral arterial occlusive disease) acute June 01 6:21pm Type 2 diabetes mellitus wit h hyperglycemia acute June 01, 2025 6:21pm Weakness acute June 01 6:21pm Diabetes mellitus with polyneuropathy chronic June 01, 2025 6:21pm Hyperlipidemia chronic June 01, 2025 6:21pm Other specified peripheral vascular diseases resolved June 01 6:21pm Anemia acute June 05 5:14pm [facility] Work Phone: 1(934) 704-716604-19-2025 Evaluation note* Diagnosis Onset Date Resolution Status [...] chronic March 07, 2025 4:25pm Atherosclerosis of [place] of both lower extremities with [...] chronic March 11, 2025 5:26pm 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 inactive March 11, 2025 5:26pm Chronic painful diabetic polyneuropathy inactive March 11, 2025 5:26pm PAOD (peripheral arterial occlusive disease) acute April 03 10:32am Carotid artery stenosis chronic M 2024 10:32am Diabetes mellitus with polyneuropathy chronic April 03, 2025 1 0:32am Atherosclerosis of both lowe r extremities with bilateral ulceration inactive April 03, 2025 1 0:32am Preop cardiovascular exam acute May 07, 2025 9:17am Systolic murmur acute April 9:17am Type 2 diabetes mellitus wit h hyperglycemia acute May 07, 2025 9:17am Atherosclerosis of coronary artery of [place] heart without angina pectoris chronic May 07, 2025 9:17am Essential hypertension chronic Ju 2024 9:17am Hyperlipidemia chronic May 07, 2025 9:17am PAOD (peripheral arterial occlusive disease) acute May 13 3:35pm Carotid artery stenosis chronic J 2024 3:35pm Diabetes mellitus with polyneuropathy chronic May 13, 2025 3:35pm Atherosclerosis of both lowe r extremities with bilateral ulceration inactive May 13, 2025 3:35pm Other specified peripheral vascular diseases acute May 18 2:09am 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 May 18, 2025 2:09am 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 foot with fat layer exposed chronic May 18, 2025 2:09am Non-pressure chronic ulcer o f other part of right foot with fat layer exposed chronic May 18 2:09am Acute hypoxic respiratory failure resolved May 18, 2025 2:09am Acute UTI resolved May 18 2:09am Cellulitis of left ankle resolved May 18, 2025 2:09am Sepsis resolved May 18 2:09am Atherosclerosis of both lowe r extremities with bilateral ulceration inactive May 18, 2025 2:09am Type 2 diabetes mellitus wit h foot ulcer inactive May 18, 2025 2:09am Other specified peripheral vascular diseases acute May 25, 2025 11:46am 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 foot with fat layer exposed chronic May 25, 2025 1 1:46am Non-pressure chronic ulcer o f other part of right foot with fat layer exposed chronic May 25, 2025 11:46am Acute osteomyelitis of left foot res olved May 25, 2025 11:46am Atherosclerosis of both lowe r extremities with bilateral ulceration inactive May 25, 2025 1 1:46am Non-healing ulcer of right foot inac tive May 25, 2025 11:46am Peripheral vascular occlusiv e disease inactive May 25, 2025 1 1:46am Type 2 diabetes mellitus wit h foot ulcer inactive May 25, 2025 1 1:46am Fall deleted May 25, 2025 11:46am Generalized weakness deleted May 25, 2025 11:46am Acute osteomyelitis of left ankle acute June 01, 2025 6:21pm Acute painful diabetic polyneuropathy acute June 01, 2025 6:21pm Anemia acute June 01 6:21pm Bacteremia acute June 01 6:21pm Charcot joint of foot acute May 6:21pm Debility acute June 01 6:21pm Essential (primary) hypertension acu te June 01, 2025 6:21pm 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 acute June 01, 2025 6:21pm Other specified peripheral vascular diseases acute June 01 6:21pm PAOD (peripheral arterial occlusive disease) acute June 01 6:21pm Type 2 diabetes mellitus wit h hyperglycemia acute June 01, 2025 6:21pm Weakness acute June 01 6:21pm Diabetes mellitus with polyneuropathy chronic June 01, 2025 6:21pm Hyperlipidemia chronic June 01, 2025 6:21pm 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 foot with fat layer exposed chronic June 01, 2025 6:21pm Non-pressure chronic ulcer o f other part of right foot with fat layer exposed chronic June 01 6:21pm Cellulitis of left ankle resolved June 01, 2025 6:21pm Type 2 diabetes mellitus wit h foot ulcer inactive June 01, 2025 6:21pm Anemia acute June 05 5:14pm PAOD (peripheral arterial occlusive disease) acute June 09 9:26am [facility] Work Phone: 1([phone]) 504-703104-19-2025 Evaluation note* Diagnosis Onset Date Resolution Status [...] chronic March 07, 2025 4:25pm Atherosclerosis of [place] of both lower extremities with [...] chronic March 11, 2025 5:26pm 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 inactive March 11, 2025 5:26pm Chronic painful diabetic polyneuropathy inactive March 11, 2025 5:26pm PAOD (peripheral arterial occlusive disease) acute April 03 10:32am Carotid artery stenosis chronic M 2024 10:32am Diabetes mellitus with polyneuropathy chronic April 03, 2025 1 0:32am Atherosclerosis of both lowe r extremities with bilateral ulceration inactive April 03, 2025 1 0:32am Preop cardiovascular exam acute May 07, 2025 9:17am Systolic murmur acute April 9:17am Type 2 diabetes mellitus wit h hyperglycemia acute May 07, 2025 9:17am Atherosclerosis of coronary artery of [place] heart without angina pectoris chronic May 07, 2025 9:17am Essential hypertension chronic Ju 2024 9:17am Hyperlipidemia chronic May 07, 2025 9:17am PAOD (peripheral arterial occlusive disease) acute May 13 3:35pm Carotid artery stenosis chronic J 2024 3:35pm Diabetes mellitus with polyneuropathy chronic May 13, 2025 3:35pm Atherosclerosis of both lowe r extremities with bilateral ulceration inactive May 13, 2025 3:35pm Other specified peripheral vascular diseases acute May 18 2:09am 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 May 18, 2025 2:09am 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 foot with fat layer exposed chronic May 18, 2025 2:09am Non-pressure chronic ulcer o f other part of right foot with fat layer exposed chronic May 18 2:09am Acute hypoxic respiratory failure resolved May 18, 2025 2:09am Acute UTI resolved May 18 2:09am Cellulitis of left ankle resolved May 18, 2025 2:09am Sepsis resolved May 18 2:09am Atherosclerosis of both lowe r extremities with bilateral ulceration inactive May 18, 2025 2:09am Type 2 diabetes mellitus wit h foot ulcer inactive May 18, 2025 2:09am Other specified peripheral vascular diseases acute May 25, 2025 11:46am 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 foot with fat layer exposed chronic May 25, 2025 1 1:46am Non-pressure chronic ulcer o f other part of right foot with fat layer exposed chronic May 25, 2025 11:46am Acute osteomyelitis of left foot res olved May 25, 2025 11:46am Atherosclerosis of both lowe r extremities with bilateral ulceration inactive May 25, 2025 1 1:46am Non-healing ulcer of right foot inac tive May 25, 2025 11:46am Peripheral vascular occlusiv e disease inactive May 25, 2025 1 1:46am Type 2 diabetes mellitus wit h foot ulcer inactive May 25, 2025 1 1:46am Fall deleted May 25, 2025 11:46am Generalized weakness deleted May 25, 2025 11:46am Acute osteomyelitis of left ankle acute June 01, 2025 6:21pm Acute painful diabetic polyneuropathy acute June 01, 2025 6:21pm Anemia acute June 01 6:21pm Bacteremia acute June 01 6:21pm C. difficile diarrhea acute May 6:21pm Charcot joint of foot acute May 6:21pm Debility acute June 01 6:21pm Essential (primary) hypertension acu te June 01, 2025 6:21pm 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 acute June 01, 2025 6:21pm Other specified peripheral vascular diseases acute June 01 6:21pm PAOD (peripheral arterial occlusive disease) acute June 01 6:21pm Type 2 diabetes mellitus wit h hyperglycemia acute June 01, 2025 6:21pm Weakness acute June 01 6:21pm Diabetes mellitus with polyneuropathy chronic June 01, 2025 6:21pm Hyperlipidemia chronic June 01, 2025 6:21pm 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 foot with fat layer exposed chronic June 01, 2025 6:21pm Non-pressure chronic ulcer o f other part of right foot with fat layer exposed chronic June 01 6:21pm Cellulitis of left ankle resolved June 01, 2025 6:21pm Type 2 diabetes mellitus wit h foot ulcer inactive June 01, 2025 6:21pm Anemia acute June 05 5:14pm PAOD (peripheral arterial occlusive disease) acute June 09 9:26am [facility] Work Phone: 1(393) 280-424404-19-2025 Evaluation note* Diagnosis Onset Date Resolution Status Admit Date Acute UTI acute March 07 4:25pm SHAYY (acute kidney injury) acute March 07, 2025 4:25pm Anemia acute March 07 4:25pm Chronic painful diabetic polyneuropathy acute March 07, 2025 4:25pm Contusion of left hip acute Apr [...] chronic March 07, 2025 4:25pm 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 inactive March 07, 2025 4:25pm SHAYY (acute kidney injury) acute March 11, 2025 5:26pm Chronic kidney disease, stage 3b acu te March 11, 2025 5:26pm Chronic painful diabetic polyneuropathy acute March 11, 2025 5:26pm Debility acute [...] chronic March 11, 2025 5:26pm 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 inactive March 11, 2025 5:26pm PAOD (peripheral arterial occlusive disease) acute April 03 10:32am Carotid artery stenosis chronic M ay 16th, 2025 10:32am Diabetes mellitus with polyneuropathy chronic April 03, 2025 1 0:32am Atherosclerosis of both lowe r extremities with bilateral ulceration inactive April 03, 2025 1 0:32am Preop cardiovascular exam acute May 07, 2025 9:17am Systolic murmur acute April 9:17am Type 2 diabetes mellitus wit h hyperglycemia acute May 07, 2025 9:17am Atherosclerosis of coronary artery of [place] heart without angina pectoris chronic May 07, 2025 9:17am Essential hypertension chronic Ju 2024 9:17am Hyperlipidemia chronic May 07, 2025 9:17am PAOD (peripheral arterial occlusive disease) acute May 13 3:35pm Carotid artery stenosis chronic J 2024 3:35pm Diabetes mellitus with polyneuropathy chronic May 13, 2025 3:35pm Atherosclerosis of both lowe r extremities with bilateral ulceration inactive May 13, 2025 3:35pm Other specified peripheral vascular diseases acute May 18 2:09am 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 May 18, 2025 2:09am 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 foot with fat layer exposed chronic May 18, 2025 2:09am Non-pressure chronic ulcer o f other part of right foot with fat layer exposed chronic May 18 2:09am Acute hypoxic respiratory failure resolved May 18, 2025 2:09am Acute UTI resolved May 18 2:09am Cellulitis of left ankle resolved May 18, 2025 2:09am Sepsis resolved May 18 2:09am Atherosclerosis of both lowe r extremities with bilateral ulceration inactive May 18, 2025 2:09am Type 2 diabetes mellitus wit h foot ulcer inactive May 18, 2025 2:09am Other specified peripheral vascular diseases acute May 25, 2025 11:46am 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 foot with fat layer exposed chronic May 25, 2025 1 1:46am Non-pressure chronic ulcer o f other part of right foot with fat layer exposed chronic May 25, 2025 11:46am Acute osteomyelitis of left foot res olved May 25, 2025 11:46am Atherosclerosis of both lowe r extremities with bilateral ulceration inactive May 25, 2025 1 1:46am Non-healing ulcer of right foot inac tive May 25, 2025 11:46am Peripheral vascular occlusiv e disease inactive May 25, 2025 1 1:46am Type 2 diabetes mellitus wit h foot ulcer inactive May 25, 2025 1 1:46am Fall deleted May 25, 2025 11:46am Generalized weakness deleted May 25, 2025 11:46am Acute osteomyelitis of left ankle acute June 01, 2025 6:21pm Acute painful diabetic polyneuropathy acute June 01, 2025 6:21pm Anemia acute June 01 6:21pm Bacteremia acute June 01 6:21pm C. 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 involvement without acute June 01, 025 6:21pm 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 acute June 01, 2025 6:21pm Other specified peripheral vascular diseases acute June 01 6:21pm PAOD (peripheral arterial occlusive disease) acute June 01 6:21pm Type 2 diabetes mellitus wit h hyperglycemia acute June 01, 2025 6:21pm Weakness acute June 01 6:21pm Chronic osteomyelitis of lef t foot chronic June 01, 2025 6:21pm Diabetes mellitus with polyneuropathy chronic June 01, 2025 6:21pm Hyperlipidemia chronic June 01, 2025 6:21pm 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 foot with fat layer exposed chronic June 01, 2025 6:21pm Non-pressure chronic ulcer o f other part of right foot with fat layer exposed chronic June 01 6:21pm Cellulitis of left ankle resolved June 01, 2025 6:21pm Type 2 diabetes mellitus wit h foot ulcer inactive June 01, 2025 6:21pm Anemia acute June 05 5:14pm PAOD (peripheral arterial occlusive disease) acute June 09 9:26am [facility] Work Phone: 1(870) 925-918104-19-2025 Radiology Diagnostic study note [facility] Imaging Services [address] [place] [address] HIP, UNI W/ Pelvis 2-3 Views MR#: [id number] Acct: [id number] Name: GELY FULLER Rep #: [id number] : 1950 F 75 From: Renetta Davis MD PCP: Dr. Rishi Vasquez DO Status: RE G ER Study:HIP, UNI W/ Pelvis 2-3 Views Date of Ex am: 03/07/25 Exam# [id number] Ordering Dr: Megan Vega PROCEDURE: HIP, UNI [...] obvious acute fracture given limitations. Reading Location: [facility] CC: Dr. Rishi Vasquez DO; LILLIAM Joshua ~ Doughnut Maker: Signed [facility]04-19-2025 Radiology Diagnostic study note [facility] Imaging Services [address] [place] [address] Chest 1 View (Portable) MR#: [id number] Acct: [id number] Name: GELY FULLER Rep #: [id number] : 1950 F 75 From: Renetta Davis MD PCP: Dr. Rishi Vasquez, Status: RE G ER Study:Chest 1 View (Portable) Date of Exam: 03/07/25 Exam# [id number] Ordering Dr: Megan Vega PROCEDURE: CHEST 1 [...] (Portable) IMPRESSION: No Acute Findings. Reading Location: [facility] CC: Dr. Rishi Vasquez DO; LILLIAM Joshua ~ Doughnut Maker: Signed [facility]04-19-2025 Evaluation note* Diagnosis Onset Date Resolution Status Admit Date Acute UTI acute March 07 4:25pm SHAYY (acute kidney injury) acute March 07, 2025 4:25pm Anemia acute March 07 4:25pm Contusion of left hip acute Apr 2024 4:25pm GI bleed acute March 07 4:25pm Recurrent falls acute February 4:25pm Rhabdomyolysis acute February 4:25pm Chronic kidney disease chronic Ap ril 2024 4:25pm [facility] Work Phone: 1(274) 575-519102-06-2025 Telephone encounter Note* Telephone Encounter - Sara [...] Solis RN December 25, 2024 5:59 PM [facility]02-06-2025 Miscellaneous Notes* Telephone Encounter - Sara [...] 25, 2024 5:59 PM [facility] NoteHNO ID: [id number] Author: RISHI VASQUEZ, DO Service: ? Author Type: Physician Type: Progress Notes Filed: 12/05/2024 11:10 Note Text: Patient presents with: 6 Month Exam HPI: Gely Fuller is a 74 year old female who presents to the office today for review of health conditions. Concerns today: PAD, vascular disease, no recent new ulcerations or skin sores Sciatica, b/l thigh pain, significant, worse with prolonged standing or walking. Seeing Dr. Gastelum for pain mgmt at [facility] and she is now taking Lyrica instead of gabapentin- does cause fatigue and some foggy brain symptoms. Helps pain minimally. Likely to have upcoming lumbar MRI. Had recent pelvic/hip MRI which shows OA changes Knows needs to get more exercise but struggles with this with her arthritis and sciatica pain Ms. Fuller has past history of diabetes. Since our [...] was within the past 12 months Ms. Fuller reports history of hyperlipidemia. Current therapy includes simvastatin (Zocor) 40 mg. Denies side effects of muscle weakness or achiness. Her most recent lipid panels are reviewed. Cholesterol, Total (mg/dL) Date Value 12/01/2024 138 11/28/2021 190 HDL Cholesterol (mg/dL) Date Value 12/01/2024 44 11/28/2021 55 LDL Cholesterol (mg/dL) Date Value 12/01/2024 64 11/28/2021 95 Triglyceride (mg/dL) Date Value 12/01/2024 151 11/28/2021 199 Ms. 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 Ortiz [facility]/25/2020 left mild, right moderate Multiple thyroid nodules last US 01/2015 Peripheral artery disease (HCC) due to Diabetes mellitus, Dr. Kwaku Moscoso Rotator cuff syndrome of left shoulder Dr. Regi Montes [facility] PAST SURGICAL HISTORY Procedure Laterality [...] ROTATOR CUFF REPAIR 03/11/14 Dr. Regi [facility] SLCTV CATHJ EA 1ST ORD ABDL [...] 1 tablet by wei (more content not included)...[facility]01-17-2025 History of Present illness Narrative* Rishi Vasquez, - 12/05/2024 9:40 AM EST Patient presents with: 6 Month Exam HPI: Gely Fuller is a 74 year old female who presents to the office today for review of health conditions. Concerns today: PAD, vascular disease, no recent new ulcerations or skin sores Sciatica, b/l thigh pain, significant, worse with prolonged standing or walking. Seeing Dr. Headley pain mgmt at [facility] and she is now taking Lyrica instead of gabapentin- does cause fatigue and some foggy brain symptoms. Helps pain minimally. Likely to have upcoming lumbar MRI. Had recent pelvic/hip MRI which shows OA changes Knows needs to get more exercise but struggles with this with her arthritis and sciatica pain Ms. Fuller has past history of diabetes. Since our [...] was within the past 12 months Ms. Fuller reports history of hyperlipidemia. Current therapy includes simvastatin (Zocor) 40 mg. Denies side effects of muscle weakness or achiness. Her most recent lipid panels are reviewed. Cholesterol, Total (mg/dL) Date Value 12/01/2024 138 11/28/2021 190 HDL Cholesterol (mg/dL) Date Value 12/01/2024 44 11/28/2021 55 LDL Cholesterol (mg/dL) Date Value 12/01/2024 64 11/28/2021 95 Triglyceride (mg/dL) Date Value 12/01/2024 151 11/28/2021 199 Ms. 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 Ortiz [facility]03/25/2020 left mild, right moderate Multiple thyroid nodules last US 01/2015 Peripheral artery disease (HCC) due to Diabetes mellitus, Dr. Kwaku Moscoso Rotator cuff syndrome of left shoulder Dr. Regi Thompson [facility] PAST SURGICAL HISTORY Procedure Laterality Date AMPUTATION [...] ROTATOR CUFF REPAIR [facility] 06-07-16 APLL Social History Tobacco Use Smoking [...] Take 1 tablet by mouth once daily. Zhoptodp-Cbve-Sby-Folic Acid 18-0.4 mg tab Take 1 tablet [...] agreed with the plan. Rishi Vasquez DO [address] [place] [address] documented in this encounterWvumed[facility]10-28-2024 Telephone encounter Note * Telephone Encounter - Silvestre Martinez MA - 09/15/2024 10:28 AM EDT Call to pt and notified her of response below from Provider. Pt verbalized understanding. Silvestre Martinez MA [facility]10-28-2024 Miscellaneous Notes* Telephone Encounter - Silvestre Martinez [...] know that she was to see Dr. Gastelum with pain management today and he was recommending changing gabapentin to Lyrica and considering Cymbalta or tramadol. Patient doesn't want him to prescribe anything without first checking with provider and what provider would recommend for her mid left buttocks pain. Patient reports that Dr. Gastelum might also reach out to provider. Requests call back at [phone] with provider response. Clemencia Chapman RN documented in this encounterWvumedicine Harrison [facility] Hospital10-26-2024 Telephone encounter Note * Telephone Encounter - Rishi Vasquez DO - 09/13/2024 12:24 PM EDT Okay with these considerations by specialist Rishi Vasquez DO [facility]10-23-2024 Telephone encounter Note* Telephone Encounter - Clemencia Chapman RN - 09/10/2024 2:55 PM EDT Patient calls to let provider know that she was to see Dr. Gastelum with pain management today and he was recommending changing gabapentin to Lyrica and considering Cymbalta or tramadol. Patient doesn't want him to prescribe anything without first checking with provider and what provider would recommend for her mid left buttocks pain. Patient reports that Dr. Gastelum might also reach out to provider. Requests call back at [phone] with provider response. Clemencia Chapman RN [facility]10-01-2024 Miscellaneous Notes* Telephone Encounter - Leatha [...] EDT Pt wrote into the office via Netscape on 08/16/24 with questions regarding medications. Please [...] INJECTION WENT WELL AND HAS HELPED. GELY FULLER documented in this encounterWvumedicine [facility] Hospital10-01-2024 Telephone encounter Note * Telephone Encounter - Leatha Long LPN - 08/19/2024 2:29 PM EDT Patient notified via voice mail message. Leatha Long LPN [facility]10-01-2024 Telephone encounter Note* Telephone Encounter - Jesenia Mcgee PA-C - 08/19/2024 1:35 PM EDT Please let patient know that she can take Fish Oil 1000 mg. Jesenia Mcgee PA-C 08/19/2024 [facility] Work Phone: [phone] Telephone encounter Note* Telephone Encounter - Silvestre Martinez MA - 08/18/2024 8:47 AM EDT Pt wrote into the office via Netscape on 08/16/24 with questions regarding medications. Please [...] INJECTION WENT WELL AND HAS HELPED. GELY FULLER [facility]09-30-2024 Telephone encounter Note* Telephone Encounter - Silvestre Martinez MA - 08/18/2024 8:46 AM EDT Turned into TE and routed to PCP to advise. Silvestre Martinez MA [facility]09-30-2024 Miscellaneous Notes* Telephone Encounter - Silvestre Martinez MA - 08/18/2024 8:46 AM EDT Turned into TE and routed to PCP to advise. Silvestre Martinez MA documented in this encounterWvumedicine [facility] Hospital09-24-2024 Telephone encounter Note * Telephone Encounter - Annmarie Adhikari LPN - 08/12/2024 4:58 PM EDT Pt. informed via My Chart [facility]09-24-2024 Miscellaneous Notes* Telephone Encounter - Annmarie Jauregui [...] Martinez MA Pt message: DR. VASQUEZ, DR. GASTELUM WANTS ME TO HAVE A PAIN INJECTION [...] THE ISSUE. WILL AWAIT YOUR REPLY GELY FULLER * Telephone Encounter - Hina Man RN [...] advise, Hina Man RN documented in this encounterWvumedicine Harrison Community Hospital09-24-2024 Telephone encounter Note * Telephone Encounter - Rishi Vasquez DO - 08/12/2024 4:54 PM EDT Patient has some chronic kidney disease stage 3, which is from her diabetes. She needs to make surethat the specialist doesn't think this will be a concern. Her GFR is 48 Rishi Vasquez DO [facility]09-23-2024 Telephone encounter Note* Telephone Encounter - Silvestre Martinez MA - 08/11/2024 3:45 PM EDT Pt wrote this message in addition to TE from 08/08/24. Please review and advise. Messages are fairlysimilar. Silvestre Martinez MA Pt message: DR. VASQUEZ, DR. PRAYSON WANTS ME TO HAVE A PAIN INJECTION [...] THE ISSUE. WILL AWAIT YOUR REPLY GELY JONNY [facility]09-20-2024 Telephone encounter Note* Telephone Encounter - [...] Please review and advise, Hina Man RN [facility]07-26-2024 Telephone encounter Note* Telephone Encounter - Annmarie Adhikari LPN - 06/13/2024 11:14 AM EDT Needs referral faxed to Car Gastelum [facility] for Pain Management. This has been faxed. [facility]07-26-2024 Miscellaneous Notes* Telephone Encounter - Annmarie Jauregui LPN - 06/13/2024 11:14 AM EDT Needs referral faxed to Car Gastelum [facility] for Pain Management. This has been faxed. documented in this encounterWvumedicine Harrison Community Hospital07-23-2024 History of Present illness Narrative* Shania Layne - 06/10/2024 1:06 PM EDT POPULATION HEALTH NAVIGATION OUTREACH Action/FYI [place] Support: Called pt to schedule an appt in Pain Management. Lvm for pt to call [phone]. Reason for Outreach Care Gap/HCC or Scheduling Wellness Visits Care Gaps due: Specialty Scheduling Patient Contacted: Unable or unnecessary to reach patient: Left message MyChart message sent Navigation Signature: Shania Layne June 10, 2024 1:06 PM documented in this encounterWvumedicine [facility] Hospital07-17-2024 Telephone encounter Note * Telephone Encounter - Patricia Coronado RN - 06/04/2024 3:59 PM EDT Spoke with patient. Given message from provider's office. Patient verbalizes understanding. Patricia Coronado RN [facility]07-17-2024 Miscellaneous Notes* Telephone Encounter - Patricia Coronado RN - 06/04/2024 3:59 PM EDT Spoke with patient. Given message from provider's office. Patient verbalizes understanding. Patricia Coronado RN * Telephone Encounter - Ja [...] Thanks Rishi Vasquez DO' documented in this encounterWvumedicine [facility] Hospital07-17-2024 Telephone encounter Note * Telephone Encounter - Ja Gaffney LPN - 06/04/2024 2:49 PM EDT Phoned patient left message to return call and ask to speak to a nurse. [facility]07-17-2024 Telephone encounter Note* Telephone Encounter - Rishi Vasquez DO - 06/04/2024 2:36 PM EDT Please inform patient that her mammogram is normal/negative. She will need routine screening mammogram in 1 year. Thanks Rishi Vasquez DO' [facility]07-17-2024 Note* Letter - Coordinator, Mammography - 06/04/2024 2:01 PM EDT June 04, 2024 PID: [id number] Gely Fuller [address] [place] [address] Dear Ron Fuller, We are pleased to inform you that [...] report will be [facility] as part of your permanent medical record and are available for your continuing care. Thank you for allowing us to help in meeting your health care needs. Sincerely, Dr. Monteiro Interpreting Radiologist [facility] (Normal over 40) [facility]07-17-2024 Miscellaneous Notes* Letter - Coordinator, Mammography - 06/04/2024 2:01 PM EDT June 04, 2024 PID: [id number] Gely Fuller [address] [place] [address] Dear Ms. Fuller, We are pleased to inform you that [...] report will be [facility] at [facility] as part of your permanent medical record and are available for your continuing care. Thank you for allowing us to help in meeting your health care needs. Sincerely, Dr. Monteiro Interpreting Radiologist [facility] (Normal over 40) documented in this encounterWvumedicine Harrison Community Hospital07-17-2024 History of Present illness Narrative* Rishi Vasquez, - 06/04/2024 11:11 AM EDT Patient presents with: 6 Month Exam HPI: Gely Fuller is a 74 year old female who [...] pain mgmt opinion for injections etc. Ms. Fuller has past history of diabetes. Since our [...] was within the past 12 months Ms. Fuller reports history of hyperlipidemia. Current therapy includes simvastatin (Zocor) 40 mg. Denies side effects of muscle weakness or achiness. Her most recent lipid panels are reviewed. Cholesterol, Total (mg/dL) Date Value 05/30/2024 151 11/28/2021 190 HDL Cholesterol (mg/dL) Date Value 05/30/2024 47 11/28/2021 55 LDL Cholesterol (mg/dL) Date Value 05/30/2024 71 11/28/2021 95 Triglyceride (mg/dL) Date Value 05/30/2024 165 11/28/2021 199 Ms. 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 Ortiz [facility]03[facility]25/2020 left mild, right moderate Multiple thyroid nodules last US 01/2015 Peripheral artery disease (HCC) due to Diabetes mellitus, Dr. Kwaku Moscoso Rotator cuff syndrome of left shoulder Dr. Regi [facility] PAST SURGICAL HISTORY Procedure Laterality Date AMPUTATION [...] ROTATOR CUFF REPAIR 03/11/14 Dr. Regi Thompson [facility] SLCTV CATHJ EA 1ST ORD ABDL [...] Take 1 tablet by mouth once daily. Inopjmuf-Yjaa-Fgj-Folic Acid 18-0.4 mg tab Take 1 tablet [...] agreed with the plan. 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 [facility]07-01-2024 Miscellaneous Notes* Telephone Encounter - Joanie Rosario LPN - 05/19/2024 12:29 PM EDT Pt was notified of such. * Telephone Encounter - Clary Andres APRN.CNP - 05/19/2024 11:31 AM EDT Labs are signed as pended. Please make sure she knows these are to be fasting. Thank you, Clary Andres APRN.CNP * Telephone Encounter - Silvestre Martinez MA - 05/19/2024 9:16 AM EDT Pt sent in Netscape message asking for lab orders for her upcoming appt 06/04/24. She would like these ordered so she can schedule lab appt. Please notify her once these have been ordered. Labs pended,please review and file. Silvestre Martinez MA documented in this encounterWvumedicine [facility] Hospital07-01-2024 Telephone encounter Note * Telephone Encounter - Clary Andres APRN.CNP - 05/19/2024 11:31 AM EDT Labs are signed as pended. Please make sure she knows these are to be fasting. Thank you, Clary Andres APRN.CNP [facility]07-01-2024 Telephone encounter Note* Telephone Encounter - Silvestre Martinez MA - 05/19/2024 9:16 AM EDT Pt sent in Netscape message asking for lab orders for her upcoming appt 06/04/24. She would like these ordered so she can schedule lab appt. Please notify her once these have been ordered. Labs pended,please review and file. Silvestre Martinez MA [facility]07-01-2024 Telephone encounter Note* Telephone Encounter - Silvestre Martinez MA - 05/19/2024 9:15 AM EDT Started TE and routed to Provider. Silvestre Martinez MA [facility]07-01-2024 Miscellaneous Notes* Telephone Encounter - Silvestre Martinez MA - 05/19/2024 9:15 AM EDT Started TE and routed to Provider. Silvestre Martinez MA documented in this encounterWvumedicine Harrison [facility] Hospital05-06-2024 Telephone encounter Note * Telephone Encounter [...] Please advise. Thank you. Michaela Millan MA. [facility]05-06-2024 Miscellaneous Notes* Telephone Encounter - Michaela [...] you. Michaela Millan MA. documented in this encounterWvumedicine Harrison Community Hospital05-02-2024 History of Present illness Narrative* Anselmo [...] CARE PLAN OF CARE UPDATE: Assessment: Gely Fuller is discontinued from Physical Therapy services due [...] 1043 Anselmo Marr PT documented in this encounterWvumedicine Harrison Community Hospital04-22-2024 History of Present illness Narrative* Keisha Guzman PTA - 03/10/2024 11:34 AM EDT Program_ID:[id number] Access Code: [email or web address] URL: [email or web address] Date: 03-10-2024 Prepared By: Anselmo Marr Program [...] THERAPY PHYSICAL THERAPY TREATMENT NOTE ASSESSMENT: Gely Fuller tolerated the session with fatigue, decreased symptoms, [...] deviations identified in the objective section above. Self-Long-Term Management: 1: Pt's questions answered in regards [...] 1144 ANISA Rodriguez PT documented in this encounterWvumedicine Harrison Community Hospital04-18-2024 History of Present illness Narrative* Anselmo [...] THERAPY PHYSICAL THERAPY TREATMENT NOTE ASSESSMENT: Gely Fuller tolerated the session with decreased symptoms. She [...] LEVEL OF FUNCTION: TREATMENT: Therapeutic Exercise: 1: [employer] StepOne seat #11 x6 minutes (Pt provided [...] 1044 Anselmo Marr PT documented in this encounterWvumedicine Harrison [facility] Hospital03-21-2024 Miscellaneous Notes* Telephone Encounter - Alexandria Jacome RN - 02/07/2024 2:13 PM EDT Faxed general surgery referral and US thyroid/parathyroid to Dr. Kwaku Moscoso, per patient request (reports Dr. Moscoso never received them). . Confirmation received. * Telephone Encounter - Selma Galeano - 01/14/2024 2:38 PM EST Faxed Selma Galeano documented in this encounterWvumedicine Harrison Community Hospital03-19-2024 History of Present illness Narrative* Keisha Guzman PTA - 02/05/2024 9:22 AM EDT Program_ID:[id number] Access Code: [email or web address] URL: [email or web address] Date: 02-05-2024 Prepared By: Anselmo Marr Program [...] THERAPY PHYSICAL THERAPY TREATMENT NOTE ASSESSMENT: Gely Fuller tolerated the session with fatigue and expected [...] use of cane. TREATMENT: Therapeutic Exercise: 1: [employer] StepOne seat #12 x6 minutes (1:1 throughout.) [...] 929 ANISA Rodriguez PT documented in this encounterWvumedicine Harrison [facility] Hospital03-13-2024 History of Present illness Narrative* Anselmo [...] THERAPY PHYSICAL THERAPY TREATMENT NOTE ASSESSMENT: Gely Fuller tolerated the session with fatigue, expected muscle [...] 1050 Anselmo Marr PT documented in this encounterWvumedicine Harrison [facility] Hospital03-11-2024 Miscellaneous Notes* Telephone Encounter - Laura [...] you. Laura Isaac LPN. documented in this encounterWvumedicine Harrison Community Hospital03-06-2024 History of Present illness Narrative* Anselmo [...] THERAPY PHYSICAL THERAPY TREATMENT NOTE ASSESSMENT: Gely Fuller tolerated the session with decreased symptoms and [...] LEVEL OF FUNCTION: TREATMENT: Therapeutic Exercise: 1: Whereoscope StepOne seat #12 x6 minutes (1:1 throughout. [...] Marr PT - 01/23/2024 10:31 AM EST Program_ID:[id number] Access Code: [email or web address] URL: [email or web address] Date: 01-23-2024 Prepared By: Anselmo Marr Program [...] sets - 10 reps documented in this encounterWvumedicine Harrison Community Hospital02-27-2024 History of Present illness Narrative* Anselmo [...] THERAPY EVALUATION PLAN OF CARE: Assessment: Gely Fuller presents with chief complaint of B low [...] Planned: 6 Planned Treatment Interventions: Therapeutic exercise (83275), Neuromuscular re- education (77969), Manual therapy (28566), Therapeutic activities (23888), Self- senior living management (73638), Gait Training (25401), Patient/Family/Caregiver Education, Body Mechanics Training, Functional training [...] Pain awakens Pain: Pain Pain Level: 6 (610 currently) Pain Location: Low Back/Lumbar Spine - [...] Marr PT - 01/15/2024 10:42 AM EST Program_ID:[id number] Access Code: [email or web address] URL: [email or web address] Date: 01-15-2024 Prepared By: Anselmo Marr Program Notes Exercises - Hooklying Single Knee to Chest Stretch - 3 x daily - 7 x weekly - sets - 3 reps - Supine Double Knee to Chest - 3 x daily - 7 x weekly - sets - 3 reps documented in this encounterWvumedicine Harrison Community Hospital02-22-2024 Miscellaneous Notes* Telephone Encounter - Patricia Coronado RN - 01/10/2024 3:22 PM EST Spoke with patient. Given message from provider's office. Patient verbalizes understanding. Transferred to [facility] to schedule GEN SURG appointment. Patricia Coronado RN * Telephone Encounter - Ja [...] of the nodules esophoria documented in this encounterWvumedicine Harrison Community Hospital02-14-2024 Miscellaneous Notes* Telephone Encounter - Ira Moreno RN - 01/02/2024 6:25 PM EST patient notified of information and would like scheduled for therapy. Patient can do Mon-Wed-Sun 8-12 or - 930-12 * Telephone Encounter [...] Romero LPN * Telephone Encounter - Annmarie Adhikari LPN - 01/01/2024 2:34 PM EST Message [...] Kerr LPN - 12/27/2023 2:04 PM EST [employer] message: I HAVE COME TO THE CONCLUSION [...] WILL AWAIT YOUR REPLY. THANK YOU, GELY FULLER documented in this encounterWvumedicine Harrison Community Hospital02-08-2024 Miscellaneous Notes* Telephone Encounter - Betsey Kerr LPN - 12/27/2023 2:04 PM EST Sent to provider in phone encounter. 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 PROGRESSION PRIOR STUDY. NO ACUTE ABNORMALITY Doughnut Maker: SANDRA Transcribe Date/Time: Dec 10 2023 1:03P Dictated by : CHASE SUE MD This examination was interpreted and the report reviewed and electronically signed by: CHASE SUE MD on Dec 10 2023 1:17PM EST DIVISION OF [id number] History of Present illness Narrative* Sienna Mendoza RT(R) - 12/10/2023 9:00 AM EST Radiology Service Progress Note PATIENT NAME: Gely Fuller DATE OF SERVICE: December 10, 2023 TIME: [...] 10, 2023 8:44 AM documented in this encounterWvumedicine Harrison Community Hospital11-15-2023 Miscellaneous Notes* Telephone Encounter - Ja Gaffney [...] end of the week. documented in this encounterWvumedicine Harrison Community Hospital10-10-2023 Miscellaneous Notes* Telephone Encounter - Yani Watts APRN.CNP - 08/28/2023 7:55 AM EDT Noted, thank you. Yani Watts APRN.[employer]X [employer]ORSE HITCH DRIVER * Telephone Encounter - Alexandria Jacome RN - 08/23/2023 11:57 AM EDT [...] results to Dr. Membreno at fax # [phone]. Confirmation received. * Telephone Encounter - Ja [...] on 08/18/2023 9:38 AM by Provider, External, PASergioC: Miscellaneous Lab documented in this encounterWvumedicine Harrison Community Hospital09-13-2023 Miscellaneous Notes* Telephone Encounter - Annmarie Adhikari LPN - 08/01/2023 11:15 AM EDT Pt. [...] EDT Pt had blood work done at [facility]. View External Labs - Microbiology [ID [id number]] View External Labs - Miscellaneous Lab [ID [id number]] documented in this encounterWvumedicine Harrison [facility] Hospital08-22-2023 Miscellaneous Notes* Telephone Encounter - Kristie Delarosa LPN - 07/10/2023 11:54 AM EDT Pt notified of same, verbalizes understanding. Kristie Delarosa DIET KITCHEN COOK * Telephone Encounter - Danyelle Tripp PA-C - 07/10/2023 11:02 AM EDT Let patient know that repeat Mamm/US is normal. Return to yearly screenings. documented in this encounterWvumedicine Harrison Community Hospital08-22-2023 History of Present illness Narrative* Rebecca Puente RDMS - 07/10/2023 10:30 AM EDT Radiology Service Progress Note PATIENT NAME: Gely Fuller DATE OF SERVICE: July 10, 2023 TIME: [...] 10, 2023 2:57 PM documented in this encounterWvumedicine Harrison Community Hospital08-22-2023 History of Present illness Narrative* Elizabeth Sandoval, RT(R) - 07/10/2023 10:00 AM EDT Radiology Service Progress Note PATIENT NAME: Gely Fuller DATE OF SERVICE: July 10, 2023 TIME: [...] 10, 2023 9:56 AM documented in this encounterWvumedicine Harrison [facility] Hospital07-17-2023 History of Present illness Narrative* Rishi Vasquez DO - 06/04/2023 11:42 AM EDT Patient presents with: 6 Month Exam HPI: Gely Fuller is a 73 year old female who presents to the office today for review of health conditions. Concerns today: Carotid artery US on 06/22/[address]. [address] Moscoso, surgeon, on 07/10/23 for follow up CAD, has recently seen Dr. Schultz/Rick Bergeron PORTABLE ROUTER OPERATOR, no recent new testing, no recent symptoms [...] medication as prescribed. Will be seeing Dr. Mocsoso upcoming Thyroid nodules, stable since 2017. Had NM uptake scan which showed it was a multinodular goiter changes, no concerning dominant nodules Urinary urgency and frequency symptoms the last few days, no hematuria or flank pain or fevers or chills. Concerned that she may have a UTI Ms. Jonny has past history of diabetes. Since our [...] was within the past 12 months Ms. Fuller reports history of hyperlipidemia. Current therapy includes simvastatin (Zocor) 40 mg. Denies side effects of muscle weakness or achiness. Her most recent lipid panels are reviewed. Cholesterol, Total (mg/dL) Date Value 05/30/2023 151 11/28/2021 190 HDL Cholesterol (mg/dL) Date Value 05/30/2023 52 11/28/2021 55 LDL Cholesterol (mg/dL) Date Value 05/30/2023 68 11/28/2021 95 Triglyceride (mg/dL) Date Value 05/30/2023 153 11/28/2021 199 Ms. Fuller indicates a history of hypertension and states [...] mellitus (HCC) Coronary artery disease Dr. Ch Lead Data Entry Operator, 90% blockage- unable to do stenting Diabetes mellitus type 2 in obese (HCC) Diabetic feet (HCC) Gangrene (HCC) 2012 RIGHT FOOT Hypertension Mild non proliferative diabetic retinopathy (HCC) 06/11/2013 Both eyes, [facility]. Ortiz [facility]03/25/2020 left mild, right moderate Multiple thyroid nodules last US 01/2015 Peripheral artery disease (HCC) due to Diabetes mellitus, Dr. Kwaku Moscoso Rotator cuff syndrome of left shoulder Dr. Regi Thompson [facility] PAST SURGICAL HISTORY Procedure Laterality Date AMPUTATION [...] ROTATOR CUFF REPAIR 03/11/14 Dr. Regi Thompson [facility] CATHJ EA 1ST ORD ABDL [...] Take 1 tablet by mouth once daily. Gembyhfj-Gciv-Vlf-Folic Acid 18-0.4 mg tab Take 1 tablet [...] with the plan. Rishi Vasquez DO [address] [place] [address] documented in this encounterTeresa [place] [address]-11-2023 Miscellaneous Notes* Telephone Encounter - Jessie Collins LPN - 05/29/2023 4:26 PM EDT Spoke with pt and information listed below given. Pt verbalizes understanding. Pt transferred to scheduling Jessie Collins LPN * Telephone Encounter - Annmarie Adhikari LPN - 05/29/2023 3:16 PM EDT Message left to return call. * Telephone Encounter - Danyelle Tripp PA-C - 05/29/2023 1:55 PM EDT Mammogram shows asymmetry in R breast. Need additional views. Danyelle Tripp PA-C documented in this encounterWvumedicine [facility]07-11-2023 Miscellaneous Notes* Letter - Coordinator, Mammography - 05/29/2023 12:21 PM EDT May 30, 2023 PID: [id number] Gely Fuller [address] [place] [address] Dear Ms. Fuller, Your recent breast imaging exam on 05/29/2023 showed a possible finding that requires additional imaging studies for a complete evaluation. Most such findings are probably benign (not cancer). If you have a healthcare provider who ordered/prescribed your screening mammogram: Please call [phone] or [phone]: [phone] to schedule an appointment for your additional [...] and reports are kept on file at [facility] as part of your permanent medical record, and are available for your continuing care. Thank you for allowing us to help in meeting your health care needs. Sincerely, Dr. Stubbs Interpreting Radiologist [facility] (Additional imaging) documented in this encounterWvumedicine Harrison Community Hospital07-11-2023 History of Present illness Narrative* Hawa Will RT(R) - 05/29/2023 10:10 AM EDT Radiology Service Progress Note PATIENT NAME: Gely Fuller DATE OF SERVICE: May 29, 2023 TIME: [...] 29, 2023 9:58 AM documented in this encounterWvumedicine Harrison [facility] Hospital07-10-2023 Miscellaneous Notes* Telephone Encounter - Michaela Millan Ma - 05/28/2023 10:17 AM EDT Last office visit: 12/05/22 F/u scheduled: 06/04/23 Michaela Millan Ma documented in this encounterWvumedicine Harrison [facility] Hospital04-24-2023 Miscellaneous Notes* Telephone Encounter - Jessie Collins LPN - 03/12/2023 1:57 PM EDT Reina with Dr. Garner's office called and identified pt with name and date of . Pt getting DM shoes from them and they received everything except the office note from Dr. Sebastian 12-11-22. Requested this be faxed to them. Faxed to [phone]. Done. Jessie Collins LPN documented in this encounterWvumedicine Harrison Community Hospital03-22-2023 Miscellaneous Notes* Telephone Encounter - Clary Andres APRN.CNP - 02/07/2023 3:05 PM EDT Order signed. Clary Andres APRN.MARK * Telephone Encounter - Selma Galeano - 02/05/2023 1:21 PM EDT Order pended Selma Kelley documented in this encounterWvumedicine [facility] Hospital03-06-2023 Miscellaneous Notes* Telephone Encounter - Jessie [...] YANI WATTS APRN.CNP * Telephone Encounter - Alexandria Jacome RN - 01/22/2023 9:37 AM EST [employer] / Insurance- reports glimepiride 2 mg will need a PA because in insurance will only cover 30 pills for 30 days, because 4 mg is available. Asking if pcp wants to order the 4 mg daily instead or do you want to do a PA? Reference # [id number] documented in this encounterWvumedicine Harrison Community Hospital02-20-2023 Miscellaneous Notes* Telephone Encounter - Joanie Rosario LPN - 01/08/2023 11:53 AM EST [facility]--12/05/22 Nov--06/04/23 Last refill--07/17/22 180 with 0 refills Last labs--12/14/22 documented in this encounterWvumedicine Harrison Community Hospital02-17-2023 Miscellaneous Notes* Telephone Encounter - Annmarie Adhikari LPN - 01/05/2023 10:21 AM EST Pt. [...] needed Rishi Vasquez DO documented in this encounterWvumedicine Harrison Community Hospital02-16-2023 Miscellaneous Notes* Telephone Encounter - Joanie Rosario LPN - 01/04/2023 11:56 AM EST Spoke with pt gave information provided. [pt voices understanding. * Telephone Encounter - Rishi Vasquez DO - 01/04/2023 11:28 AM EST Please inform patient that her NM thyroid uptake scan shows no concerning abnormal uptake Rishi Vasquez DO documented in this encounterWvumedicine Harrison Community Hospital02-09-2023 History of Present illness Narrative* Evelin [...] 09:22 PATIENT DISCHARGED TO: Ambulatory patient, left NM department area. A Diagnostic radioactive procedure has taken place, with no further precautions necessary other than routine body substance precautions. More information regarding radiation safety can be found usingthis link: [email or web address] SIGNATURE: ISMAEL Mcpherson PATIENT NAME: Gely Fuller DATE: December 28, 2022 TIME: 09:25 AM PAGER/CONTACT #: documented in this encounterWvumedicine Harrison Community Hospital02-01-2023 History of Present illness Narrative* Rebecca Puente, [facility] - 12/20/2022 10:00 AM EST Radiology Service Progress Note PATIENT NAME: Gely Fuller DATE OF SERVICE: December 20, 2022 TIME: [...] 20, 2022 11:23 AM documented in this [facility]01-19-2023 Miscellaneous Notes* Telephone Encounter - Joanie Rosario LPN - 12/07/2022 10:41 AM EST Called pt left message as such. * Telephone Encounter - Yani Watts APRN.CNP - 12/07/2022 10:09 AM EST No need for another carotid ultrasound at this time. Yani Watts APRN.MARK * Telephone Encounter - Joanie Rosario LPN - 12/07/2022 9:57 AM EST Mrs. Fuller came to [facility] , she states was scheduled for [...] to Rebeka to view. documented in this encounterWvumedicine Harrison Community Hospital01-17-2023 History of Present illness Narrative* Rishi Vasquez, DO - 12/05/2022 10:01 AM EST Patient presents with: 6 Month Exam HPI: Gely Fuller is a 72 year old female who [...] carotid arteries/atherosclerosus. No syncope or presyncope. Ms. Fuller has past history of diabetes. Since our [...] was within the past 12 months Ms. Fuller reports history of hyperlipidemia. Current therapy includes simvastatin (Zocor) 40 mg. Denies side effects of muscle weakness or achiness. Her most recent lipid panels are reviewed. Cholesterol, Total (mg/dL) Date Value 08/31/2022 174 11/28/2021 190 HDL Cholesterol (mg/dL) Date Value 08/31/2022 49 11/28/2021 55 LDL Cholesterol (mg/dL) Date Value 08/31/2022 83 11/28/2021 95 Triglyceride (mg/dL) Date Value 08/31/2022 211 11/28/2021 199 Ms. Fuller indicates a history of hypertension and states [...] mellitus (HCC) Coronary artery disease Dr. Ch Lead Data Entry Operator, 90% blockage- unable to do stenting Diabetes mellitus type 2 in obese (HCC) Diabetic feet (HCC) Gangrene (HCC) 2012 RIGHT FOOT Hypertension Mild non proliferative diabetic retinopathy (HCC) 06/11/2013 Both eyes, Dr. Ortiz [facility]-03/25/2020 left mild, right moderate Multiple thyroid nodules last US 01/2015 Peripheral artery disease (HCC) due to Diabetes mellitus, Dr. Kwaku Moscoso Rotator cuff syndrome of left shoulder Dr. Deluna [facility] PAST SURGICAL HISTORY Procedure Laterality Date [...] 04-08-13 ROTATOR CUFF REPAIR 03/11[facility]14 [facility] PEL/LXTR ART [...] Take 1 tablet by mouth once daily. Wwiwriuz-Nyvh-Prf-Folic Acid 18-0.4 mg tab Take 1 tablet [...] agreed with the plan. Rishi Vasquez DO [address] [place] [address] documented in this encounterWvumedicine Harrison Community Hospital11-05-2022 History of Present illness Narrative* Camille Mitchell PA-C - 09/23/2022 10:45 AM EDT This note was created using Nuvilexriter. Subjective Gely Fuller is a 72 year old female. HPI [...] mellitus (HCC) Coronary artery disease Dr. Ch Lead Data Entry Operator, 90% blockage- unable to do stenting Diabetes mellitus type 2 in obese (HCC) Diabetic feet (HCC) Gangrene (HCC) 2012 RIGHT FOOT Hypertension Mild non proliferative diabetic retinopathy (HCC) 06/11/2013 Both eyes, Dr. Ortiz [facility]/25[facility]2020 left mild, right moderate Multiple thyroid nodules last US 01/2015 Peripheral artery disease (HCC) due to Diabetes mellitus, Dr. Kwaku Moscoso Rotator cuff syndrome of left shoulder Dr. Deluna [facility] Current Outpatient Medications Medication Sig Dispense [...] Take 1 tablet by mouth once daily. Pilxogsg-Luoo-Gik-Folic Acid 18-0.4 mg tab Take 1 tablet [...] 04-08-13 ROTATOR CUFF REPAIR 03/11/14 Dr. Deluna [facility] CATHJ EA 1ST ORD ABDL PEL/LXTR ART [...] CULTURE Camille Mitchell PA-C documented in this encounterWvumedicine Harrison Community Hospital10-20-2022 Miscellaneous Notes* Telephone Encounter - Sara Solis RN - 09/07/2022 11:05 AM EDT Pt called and is notified of providers results and instructions. Pt voices understanding. Pt sent information through Gogobot per Pt request. Sara Solis RN * [...] would like her to discuss with her cannery tender engineer to decrease this dose to 20 mg a day due to these abnormal kidney levels. Also her TSH is slightly low. I don't think she is taking any thyroid medication. Need for recheck of thyroid labs in 1 month as ordered Rishi Vasquez DO documented in this encounterWvumedicine Harrison Community Hospital09-27-2022 History of Present illness Narrative* Camille Mitchell PA-C - 08/15/2022 1:07 PM EDT Images from the original note were not included. This note was created using Quippi. Subjective Gely Fuller is a 72 year old female. HPI [...] mellitus (HCC) Coronary artery disease Dr. Ch Lead Data Entry Operator, 90% blockage- unable to do stenting Diabetes mellitus type 2 in obese (HCC) Diabetic feet (HCC) Gangrene (HCC) 2012 RIGHT FOOT Hypertension Mild non proliferative diabetic retinopathy (HCC) 06/11/2013 Both eyes, Dr. Ortiz [facility]2020 left mild, right moderate Multiple thyroid nodules last US 01/2015 Peripheral artery disease (HCC) due to Diabetes mellitus, Dr. Kwaku Moscoso Rotator cuff syndrome of left shoulder Dr. Deluna [facility] Current Outpatient Medications Medication Sig Dispense [...] Take 1 tablet by mouth once daily. Morrfcem-Sdnu-Dsh-Folic Acid 18-0.4 mg tab Take 1 tablet [...] 04-08-13 ROTATOR CUFF REPAIR 03/11/14 [facility]D [facility] PEL/LXTR [...] RIGHT Camille Mitchell PA-C documented in this encounterWvumedicine Harrison Community Hospital07-30-2022 History of Present illness Narrative* Kena Older, SORT OPERATIONS SUPERVISOR.SIX HORSE HITCH DRIVER - 06/17/2022 8:33 AM EDT CC: Patient presents with: Arm Pain: R upper arm pain x last night HPI Gely L Jonny is a 72 year old female who [...] mellitus (HCC) Coronary artery disease Dr. Ch Lead Data Entry Operator, 90% blockage- unable to do stenting Diabetes mellitus type 2 in obese (HCC) Diabetic feet (HCC) Gangrene (HCC) 2012 RIGHT FOOT Hypertension Mild non proliferative diabetic retinopathy (HCC) 06/11/2013 Both eyes, Dr. Ortiz [facility]2020 left mild, right moderate Multiple thyroid nodules last US 01/2015 Peripheral artery disease (HCC) due to Diabetes mellitus, Dr. Kwaku Moscoso Rotator cuff syndrome of left shoulder Dr. Deluna [facility] PAST SURGICAL HISTORY Procedure Laterality Date [...] 04-08-13 ROTATOR CUFF REPAIR 03/11/14 Dr. Deluna [facility] CATHJ EA 1ST ORD ABDL PEL/LXTR ART [...] Take 1 tablet by mouth once daily. Ncxkbdoe-Qboq-Cya-Folic Acid (CENTRUM COMPLETE) 18-0.4 mg tab Take [...] plan. Kena Sims APRN.CNP documented in this encounterWvumedicine [facility] Hospital07-18-2022 Miscellaneous Notes* Telephone Encounter - Sara [...] this. Yani Watts APRN.CNP documented in this encounterWvumedicine Harrison Community Hospital07-18-2022 Miscellaneous Notes* Letter - Mammography Coordinator - 06/05/2022 12:46 PM EDT June 05, 2022 PID: [id number] Gely Fuller [address] [place] [id number] Dear Ms. Fuller, Your recent breast imaging exam on 06/05/2022 showed a possible finding that requires additional imaging studies for a complete evaluation. Most such findings are probably benign (not cancer). If you have a healthcare provider who ordered/prescribed your screening mammogram: Please call [phone] or [phone]: [phone] to schedule an appointment for your additional [...] and reports are [facility] as part of your permanent medical record, and are available for your continuing care. Thank you for allowing us to help in meeting your health care needs. Sincerely, Dr. Benjamin Interpreting Radiologist [facility] (Additional imaging) documented in this encounterWvumedicine Harrison Community Hospital07-18-2022 History of Present illness Narrative* RT Mono(R) - 06/05/2022 10:10 AM EDT Radiology Service Progress Note PATIENT NAME: Gely Fuller DATE OF SERVICE: June 05, 2022 TIME: [...] 05, 2022 10:08 AM documented in this encounterWvumedicine Harrison [facility] Hospital07-13-2022 History of Present illness Narrative* Rishi Vasquez DO - 05/31/2022 10:58 AM EDT Patient presents with: 6 Month Exam HPI: Gely Fuller is a 72 year old female who presents to the office today for review of health conditions. Concerns today: PAD, hx of foot ulcerations, currently with one on her right foot, managed by Operater Hx of CAD, PAD, sees [place] Lead Data Entry Operator group. Will have follow up in the next 1-2 months. No recent chest pressure or pain or dyspnea or dizziness/LH or edema changes. + fatigue Has been trying to limit sugar and salt intake Blood glucose levels usually 120-170 in the AM fasting, admits to sometimes eating too many grams of carbohydrates. Ms. Fuller has past history of diabetes. Since our [...] was within the past 12 months Ms. Fuller reports history of hyperlipidemia. Current therapy includes simvastatin (Zocor) 40 mg. Denies side effects of muscle weakness or achiness. Her most recent lipid panels are reviewed. Cholesterol, Total (mg/dL) Date Value 02/23/2022 186 11/28/2021 190 HDL Cholesterol (mg/dL) Date Value 02/23/2022 60 11/28/2021 55 LDL Cholesterol (mg/dL) Date Value 02/23/2022 97 11/28/2021 95 Triglyceride (mg/dL) Date Value 02/23/2022 147 11/28/2021 199 Ms. Fuller indicates a history of hypertension and states [...] mellitus (HCC) Coronary artery disease Dr. Ch Lead Data Entry Operator, 90% blockage- unable to do stenting Diabetes mellitus type 2 in obese (HCC) Diabetic feet (HCC) Gangrene (HCC) 2012 RIGHT FOOT Hypertension Mild non proliferative diabetic retinopathy (HCC) 06/11/2013 Both eyes, Dr. Ortiz [facility]2020 left mild, right moderate Multiple thyroid nodules last US 01/2015 Peripheral artery disease (HCC) due to Diabetes mellitus, Dr. Kwaku Moscoso Rotator cuff syndrome of left shoulder Dr. Regi Thompson [facility] PAST SURGICAL HISTORY Procedure Laterality Date AMPUTATION [...] VSL 04-08-13 ROTATOR CUFF REPAIR 03/11/14 Dr. Rgei Thompson [facility] CATHJ EA 1ST ORD ABDL [...] Take 1 tablet by mouth once daily. Zbjjkwwm-Lqmq-Mtb-Folic Acid (CENTRUM COMPLETE) 18-0.4 mg tab Take [...] arise. - Discussed diabetic education issues of assisted diabetic complications, diet, medications- side effects and [...] - stable 8. Coronary artery disease involving [place] heart, unspecified vessel or lesion type, unspecified whether angina present - ICD9: 414.01, ICD10: I25.10 - f/u with Lead Data Entry Operator, no new symptoms 9. Fatigue, unspecified type [...] agreed with the plan. Rishi Vasquez DO [address] [place] [address] documented in this encounterWvumedicine Harrison [facility] Hospital07-06-2022 Miscellaneous Notes* Telephone Encounter - Yvonne Garcia - 05/24/2022 1:32 PM EDT LM on patient's VM to schedule consult for colonoscopy. First attempt. * Telephone Encounter - Garrick La - 05/24/2022 1:25 PM EDT Patient due for 5 year follow up colonoscopy. Patient is not appropriate for open access. Please schedule office consult Garrick La documented in this encounterWvumedicine Harrison Community Hospital06-14-2022 Miscellaneous Notes* Telephone Encounter - Jessie [...] you. Jessie Collins LPN documented in this encounterWvumedicine Harrison Community Hospital06-06-2022 Miscellaneous Notes* Telephone Encounter - Clary [...] advise. Georgia Nicole LPN documented in this encounterWvumedicine Harrison [facility] Hospital05-05-2022 Miscellaneous Notes* Telephone Encounter - Yani Watts [...] refills Last labs-- 03/07/22 documented in this encounterWvumedicine Harrison Community Hospital05-05-2022 Miscellaneous Notes* Telephone Encounter - Joanie Rosario LPN - 03/23/2022 8:43 AM EDT [facility]-- 12/02[facility]21 Last refill-- 04/06/21 30 with 11 refills Last labs- 03/07/22 documented in this encounterWvumedicine Harrison [facility] Hospital05-04-2022 Evaluation note* Diagnosis Stage 3 chronic kidney disease, unspecified whether stage 3a or 3b CKD (HCC)- Primary 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) Type II or unspecified type diabetes mellitus with peripheral circulatory disorders, not stated as uncontrolled documented in this encounter [facility]04-08-2022 Miscellaneous Notes* Telephone Encounter - Selma [...] concerns. Yani Watts APRN.CNP documented in this encounterWvumedicine Harrison Community Hospital12-27-2017 History of Past illness Narrative* Problem Noted Date Resolved Date Benign paroxysmal positional vertigo 11/14/2017 11/30/2021 Essential hypertension 11/30/2015 6 documented as of this encounter (statuses as of 03/22/2022) [facility] of Past illness Narrative* Problem Noted Date Resolved Date Benign paroxysmal positional vertigo 11/14/2017 11/30/2021 Essential hypertension 11/30/2015 6 documented as of this encounter (statuses as of 03/23/2022) [facility] of Past illness Narrative* Problem Noted Date Resolved Date Benign paroxysmal positional vertigo 11/14/2017 11/30/2021 Essential hypertension 11/30/2015 6 documented as of this encounter (statuses as of 04/24/2022) [facility] of Past illness Narrative* Problem Noted Date Resolved Date Benign paroxysmal positional vertigo 11/14/2017 11/30/2021 Essential hypertension 11/30/2015 6 documented as of this encounter (statuses as of 04/26/2022) [address]27-2017 History of Past illness Narrative* Problem Noted Date Resolved Date Benign paroxysmal positional vertigo 11/14/2017 11/30/2021 Essential hypertension 11/30/2015 6 documented as of this encounter (statuses as of 05/02/2022) [place] [address]2017 History of Past illness Narrative* Problem Noted Date Resolved Date Benign paroxysmal positional vertigo 11/14/2017 11/30/2021 Essential hypertension 11/30/2015 6 documented as of this encounter (statuses as of 05/24/2022) [address]27-2017 History of Past illness Narrative* Problem Noted Date Resolved Date Benign paroxysmal positional vertigo 11/14/2017 11/30/2021 Essential hypertension 11/30/2015 6 documented as of this encounter (statuses as of 05/31/2022) [place] [address]2017 History of Past illness Narrative* Problem Noted Date Resolved Date Benign paroxysmal positional vertigo 11/14/2017 11/30/2021 Essential hypertension 11/30/2015 6 documented as of this encounter (statuses as of 06/06/2022) [place] [address]2017 History of Past illness Narrative* Problem Noted Date Resolved Date Benign paroxysmal positional vertigo 11/14/2017 11/30/2021 Essential hypertension 11/30/2015 6 documented as of this encounter (statuses as of 06/06/2022) [place] [address]2017 History of Past illness Narrative* Problem Noted Date Resolved Date Benign paroxysmal positional vertigo 11/14/2017 11/30/2021 Essential hypertension 11/30/2015 6 documented as of this encounter (statuses as of 06/07/2022) [place] [address]2017 History of Past illness Narrative* Problem Noted Date Resolved Date Benign paroxysmal positional vertigo 11/14/2017 11/30/2021 Essential hypertension 11/30/2015 6 documented as of this encounter (statuses as of 06/17/2022) [place] [address]2017 History of Past illness Narrative* Problem Noted Date Resolved Date Benign paroxysmal positional vertigo 11/14/2017 11/30/2021 Essential hypertension 11/30/2015 6 documented as of this encounter (statuses as of 08/15/2022) [facility] Narrative* Problem Noted Date Resolved Date Benign paroxysmal positional vertigo 11/14/2017 11/30/2021 Essential hypertension 11/30/2015 6 documented as of this encounter (statuses as of 09/07/2022) [facility] Narrative* Problem Noted Date Resolved Date Benign paroxysmal positional vertigo 11/14/2017 11/30/2021 Essential hypertension 11/30/2015 6 documented as of this encounter (statuses as of 09/09/2022) [facility] Narrative* Problem Noted Date Resolved Date Benign paroxysmal positional vertigo 11/14/2017 11/30/2021 Essential hypertension 11/30/2015 6 documented as of this encounter (statuses as of 09/23/2022) [facility] Narrative* Problem Noted Date Resolved Date Benign paroxysmal positional vertigo 11/14/2017 11/30/2021 Essential hypertension 11/30/2015 6 documented as of this encounter (statuses as of 12/05/2022) [facility] Narrative* Problem Noted Date Resolved Date Benign paroxysmal positional vertigo 11/14/2017 11/30/2021 Essential hypertension 11/30/2015 6 documented as of this encounter (statuses as of 12/07/2022) [facility] illness Narrative* Problem Noted Date Resolved Date Benign paroxysmal positional vertigo 11/14/2017 11/30/2021 Essential hypertension 11/30/2015 6 documented as of this encounter (statuses as of 01/04/2023) [facility]12-27-2017 History of Past illness Narrative* Problem Noted Date Resolved Date Benign paroxysmal positional vertigo 11/14/2017 11/30/2021 Essential hypertension 11/30/2015 6 documented as of this encounter (statuses as of 01/05/2023) [facility]-2017 History of Past illness Narrative* Problem Noted Date Resolved Date Benign paroxysmal positional vertigo 11/14/2017 11/30/2021 Essential hypertension 11/30/2015 6 documented as of this encounter (statuses as of 01/09/2023) [address]27-2017 History of Past illness Narrative* Problem Noted Date Resolved Date Benign paroxysmal positional vertigo 11/14/2017 11/30/2021 Essential hypertension 11/30/2015 6 documented as of this encounter (statuses as of 02/07/2023) [address]27-2017 History of Past illness Narrative* Problem Noted Date Resolved Date Benign paroxysmal positional vertigo 11/14/2017 11/30/2021 Essential hypertension 11/30/2015 6 documented as of this encounter (statuses as of 03/02/2023) [address]27-2017 History of Past illness Narrative* Problem Noted Date Resolved Date Benign paroxysmal positional vertigo 11/14/2017 11/30/2021 Essential hypertension 11/30/2015 6 documented as of this encounter (statuses as of 03/12/2023) [place] [address]-27-2017 History of Past illness Narrative* Problem Noted Date Resolved Date Benign paroxysmal positional vertigo 11/14/2017 11/30/2021 Essential hypertension 11/30/2015 6 documented as of this encounter (statuses as of 03/12/2023) [place] [address]-27-2017 History of Past illness Narrative* Problem Noted Date Diagnosed Date Resolved Date Benign paroxysmal positional vertigo 11/14/2017 11/30/2021 Essential hypertension 11/30/201510/24 documented as of this encounter (statuses as of 05/28/2023) [place] [address]-27-2017 History of Past illness Narrative* Problem Noted Date Diagnosed Date Resolved Date Benign paroxysmal positional vertigo 11/14/2017 11/30/2021 Essential hypertension 11/30/201510/24 documented as of this encounter (statuses as of 05/30/2023) [facility]2017 History of Past illness Narrative* Problem Noted Date Diagnosed Date Resolved Date Benign paroxysmal positional vertigo 11/14/2017 11/30/2021 Essential hypertension 11/30/201510/24 documented as of this encounter (statuses as of 05/31/2023) [address]27-2017 History of Past illness Narrative* Problem Noted Date Diagnosed Date Resolved Date Benign paroxysmal positional vertigo 11/14/2017 11/30/2021 Essential hypertension 11/30/201510/24 documented as of this encounter (statuses as of 06/05/2023) [place] [address]-27-2017 History of Past illness Narrative* Problem Noted Date Diagnosed Date Resolved Date Benign paroxysmal positional vertigo 11/14/2017 11/30/2021 Essential hypertension 11/30/201510/24 documented as of this encounter (statuses as of 07/10/2023) [address]27-2017 History of Past illness Narrative* Problem Noted Date Diagnosed Date Resolved Date Benign paroxysmal positional vertigo 11/14/2017 11/30/2021 Essential hypertension 11/30/201510/24 documented as of this encounter (statuses as of 08/01/2023) [facility]-2017 History of Past illness Narrative* Problem Noted Date Diagnosed Date Resolved Date Benign paroxysmal positional vertigo 11/14/2017 11/30/2021 Essential hypertension 11/30/201510/24 documented as of this encounter (statuses as of 08/28/2023) [facility]2017 History of Past illness Narrative* Problem Noted Date Diagnosed Date Resolved Date Benign paroxysmal positional vertigo 11/14/2017 11/30/2021 Essential hypertension 11/30/201510/24 documented as of this encounter (statuses as of 08/31/2023) [facility]2017 History of Past illness Narrative* Problem Noted Date Diagnosed Date Resolved Date Benign paroxysmal positional vertigo 11/14/2017 11/30/2021 Essential hypertension 11/30/201510/24 documented as of this encounter (statuses as of 09/23/2023) [facility]-2017 History of Past illness Narrative* Problem Noted Date Diagnosed Date Resolved Date Benign paroxysmal positional vertigo 11/14/2017 11/30/2021 Essential hypertension 11/30/201510/24 documented as of this encounter (statuses as of 09/23/2023) [facility]2017 History of Past illness Narrative* Problem Noted Date Diagnosed Date Resolved Date Benign paroxysmal positional vertigo 11/14/2017 11/30/2021 Essential hypertension 11/30/201510/24 documented as of this encounter (statuses as of 09/23/2023) [facility]2017 History of Past illness Narrative* Problem Noted Date Diagnosed Date Resolved Date Benign paroxysmal positional vertigo 11/14/2017 11/30/2021 Essential hypertension 11/30/201510/24 documented as of this encounter (statuses as of 09/23/2023) [facility]2017 History of Past illness Narrative* Problem Noted Date Diagnosed Date Resolved Date Benign paroxysmal positional vertigo 11/14/2017 11/30/2021 Essential hypertension 11/30/201510/24 documented as of this encounter (statuses as of 09/23/2023) [place] [address]-27-2017 History of Past illness Narrative* Problem Noted Date Diagnosed Date Resolved Date Benign paroxysmal positional vertigo 11/14/2017 11/30/2021 Essential hypertension 11/30/201510/24 documented as of this encounter (statuses as of 10/04/2023) [place] [address]-27-2017 History of Past illness Narrative* Problem Noted Date Diagnosed Date Resolved Date Benign paroxysmal positional vertigo 11/14/2017 11/30/2021 Essential hypertension 11/30/201510/24 documented as of this encounter (statuses as of 12/21/2023) [facility]2017 History of Past illness Narrative* Problem Noted Date Diagnosed Date Resolved Date Benign paroxysmal positional vertigo 11/14/2017 11/30/2021 Essential hypertension 11/30/201510/24 documented as of this encounter (statuses as of 12/27/2023) [place] [address]-27-2017 History of Past illness Narrative* Problem Noted Date Diagnosed Date Resolved Date Benign paroxysmal positional vertigo 11/14/2017 11/30/2021 Essential hypertension 11/30/201510/24 documented as of this encounter (statuses as of 01/16/2024) [facility]12[facility]-2017 History of Past illness Narrative* Problem Noted Date Diagnosed Date Resolved Date Benign paroxysmal positional vertigo 11/14/2017 11/30/2021 Essential hypertension 11/30/201510/24 documented as of this encounter (statuses as of 01/23/2024) [place] [address]-27-2017 History of Past illness Narrative* Problem Noted Date Diagnosed Date Resolved Date Benign paroxysmal positional vertigo 11/14/2017 11/30/2021 Essential hypertension 11/30/201510/24 documented as of this encounter (statuses as of 01/28/2024) [facility]2017 History of Past illness Narrative* Problem Noted Date Diagnosed Date Resolved Date Benign paroxysmal positional vertigo 11/14/2017 11/30/2021 Essential hypertension 11/30/201510/24 documented as of this encounter (statuses as of 01/30/2024) [facility]2017 History of Past illness Narrative* Problem Noted Date Diagnosed Date Resolved Date Benign paroxysmal positional vertigo 11/14/2017 11/30/2021 Essential hypertension 11/30/201510/24 documented as of this encounter (statuses as of 02/05/2024) [place] [address]27-2017 History of Past illness Narrative* Problem Noted Date Diagnosed Date Resolved Date Benign paroxysmal positional vertigo 11/14/2017 11/30/2021 Essential hypertension 11/30/201510/24 documented as of this encounter (statuses as of 02/07/2024) [facility]12[facility]2017 History of Past illness Narrative* Problem Noted Date Diagnosed Date Resolved Date Benign paroxysmal positional vertigo 11/14/2017 11/30/2021 Essential hypertension 11/30/201510/24 documented as of this encounter (statuses as of 02/22/2024) [facility]2017 History of Past illness Narrative* Problem Noted Date Diagnosed Date Resolved Date Benign paroxysmal positional vertigo 11/14/2017 11/30/2021 Essential hypertension 11/30/201510/24 documented as of this encounter (statuses as of 03/06/2024) [place] [address]27-2017 History of Past illness Narrative* Problem Noted Date Diagnosed Date Resolved Date Benign paroxysmal positional vertigo 11/14/2017 11/30/2021 Essential hypertension 11/30/201510/24 documented as of this encounter (statuses as of 03/07/2024) [facility] Michaela Joshua [facility] Note Date/Time May 21, 2025 12:18 pm [facility] Medical Records Department [address] [place] [address] Discharge Summary 05/21/25 1134 MR#: [id number] Acct: [id number] Name: GELY FULLER Rep #:[id number] : 1950 75 From: Michaela Joshua DO PCP: Dr. Rishi Vasquez DO Status:AD M IN Location: [place] [address] Providers Date of Admission: 05/18/25 Primary Care Physician: Dr. Rishi Vasquez DO Consultations 05/18/25 03:19 Consult: Infectious Disease Routine Consulting Provider: Kwaku Mendoza Reason for Consult: Infected diabetic foot wounds EMERGENT Consult: No MD Notified: Yes Date Notified: 05/18/25 Time Notified: 08:30 Method of Notification: Answering Service Consult: Onc/Wound/box bender Routine Comment: Consult: Podiatry Routine Consulting Provider: Patel Irene Reason for Consult: Infected diabetic foot wound EMERGENT Consult: No MD Notified: Yes Date Notified: 05/18/25 Time Notified: 02:10 Method of Notification: Text Consult: Vascular Surgery Routine Consulting Provider: Russell Clement Reason for Consult: Infected diabetic foot wounds, known marked BL LE PAD EMERGENT Consult: No Notified: Yes Date Notified: 05/18/25 Time Notified: 02:10 Method of Notification: Text 05/18/25 07:08 Consult: Network Security Engineer / Pulmonary Medicine Routine Consulting Provider: Intensivists/Pulmonary Med Reason for Consult: Sepsis EMERGENT Consult: No Notified: Yes Date Notified: 05/18/25 Time Notified: [...] peripheral vascular disease who presents emergency department [facility] on 05/18/2025 with achief complaint [...] [place] She [place] [...] have no beds available. We did offer [place] transitional [facility] unit and she stated this was too far away and did not want to go there. Unfortunately, she is out of network for the transitionalcare unit in [place]. Given the fact that she refused to [...] (Auto) 64.8, Lymph % (Auto) 17.7 L, Lea % (Auto) 13.6 H, Eos % (Auto) [...] Health Service Charges/Coding Visit Charges Inpatient E&M: 17486 Disch Hosp >30min 05/21/25 1218 <Electronically signed by Michaela Joshua DO> Cosigner Signature (if applicable): CC: Dr. Rishi Vasquez DO; Dr. Michaela Joshua DO~ Signed [facility] Work Phone: Evaluation note* Diagnosis Onset Date Resolution Status Personal history of colonic polyps acute Carotid artery stenosis acut e Essential hypertension acute Atherosclerosis of coronary artery of [place] heart without angina pectoris chronic Hyperlipidemia chronic Peripheral vascular occlusive disease [facility] Work Phone: Evaluation note* Diagnosis Essential hypertension Unspecified essential hypertension documented in this encounter [facility] note* Diagnosis Peripheral vascular occlusive disease (HCC)- Primary Peripheral vascular disease, unspecified documented in this encounter [facility] note* Diagnosis Peripheral vascular occlusive disease (HCC) Peripheral vascular disease, unspecified documented in this encounter [facility] note* Diagnosis Essential hypertension Unspecified essential hypertension documented in this encounter [facility] note* Diagnosis Diabetes mellitus type 2 [...] arthropathy, multiple sites Coronary artery disease involving [place] heart, unspecified vessel or lesion type, unspecified whether angina present Fatigue, unspecified type [facility]* Diagnosis Encounter for screening mammogram for malignant neoplasm of breast Other screening mammogram [facility]* Diagnosis Abnormal mammogram- Primary Abnormal mammogram, unspecified documented [facility] this encounter [facility]* Diagnosis Acute pain of right shoulder- Primary documented in this encounter [facility] noteNo assessment information availableWWilson Health Work Phone: Evaluation note* Diagnosis Onset Date Resolution Status Carotid artery stenosis acut e [facility] Work Phone: Evaluation note* Diagnosis Injury of sternum, initial encounter- Primary Wrist injury, right, initial encounter [facility] Diagnosis Onset Date Resolution Status Carotid artery stenosis 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 Atherosclerosis of coronary artery of [place] heart without angina pectoris chronic 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 artery stenosis 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 Essential hypertension chron ic Hyperlipidemia chronic Peripheral vascular occlusive disease [facility] Work Phone: Evaluation note* Diagnosis Low TSH level- Primary Nonspecific abnormal results of thyroid function study Abnormal thyroid biopsy Abnormal thyroid blood test Nonspecific abnormal results of thyroid function study Borderline abnormal thyroid function test Nonspecific abnormal results of thyroid function study documented [facility] this [facility]* Diagnosis Acute cystitis with hematuria- Primary Acute cystitis documented in this [facility]* Diagnosis Onset Date Resolution Status Atherosclerosis of coronary artery of [place] heart without angina pectoris chronic 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 artery stenosis 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 Essential hypertension chron ic Hyperlipidemia chronic Peripheral vascular occlusive disease [facility] Work Phone: Evaluation note* Diagnosis Diabetes [...] stage 3a (HCC) documented in this encounter [facility]* Diagnosis Diabetes mellitus type 2 with peripheral artery disease Type II or unspecified type diabetes mellitus with peripheral circulatory disorders, not stated as uncontrolled [facility]* Diagnosis Encounter for screening mammogram for malignant neoplasm of breast- Primary Other screening mammogram [facility]* Diagnosis 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) Type II or unspecified type diabetes mellitus with peripheral circulatory disorders, not stated as uncontrolled documented [facility] this [facility]* Diagnosis Peripheral vascular occlusive disease (HCC) Peripheral vascular disease, unspecified [facility]* Diagnosis Abnormal mammogram- Primary Abnormal mammogram, unspecified documented in this encounter [facility] note* Diagnosis Dysuria- Primary Acute cystitis with [...] arthropathy, multiple sites documented [facility] this [facility]* Diagnosis Onset Date Resolution Status Atherosclerosis of coronary artery of [place] heart without angina pectoris chronic 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 artery stenosis 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 Essential hypertension chron ic Hyperlipidemia chronic Peripheral vascular occlusive disease chronic 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 artery stenosis 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 Peripheral vascular occlusive disease [facility] Work Phone: Evaluation note* Diagnosis Onset Date Resolution Status 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 artery stenosis 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 Peripheral vascular occlusive disease [facility] Work Phone: Evaluation note* Diagnosis Encounter for screening mammogram for malignant neoplasm of breast Other screening mammogram [facility] this encounter [facility]* Diagnosis Abnormal mammogram Abnormal mammogram, unspecified documented in this encounter [facility]* Diagnosis Abnormal mammogram Abnormal mammogram, unspecified documented in this encounter [facility] note* Diagnosis Abnormal thyroid function test Nonspecific abnormal results of thyroid function study documented in this encounter [facility] note* Diagnosis Peripheral vascular occlusive disease (HCC) Peripheral vascular disease, unspecified documented [facility] this encounter [facility]* Diagnosis Multiple thyroid nodules Nontoxic multinodular goiter documented in this encounter [facility]* Diagnosis Chronic midline low back pain without sciatica documented in this encounter [facility]* Diagnosis Chronic bilateral low back pain with bilateral sciatica- Primary documented in this encounter [facility]* Diagnosis Peripheral vascular occlusive disease (HCC) Peripheral vascular disease, unspecified [facility] this [facility]* Diagnosis Chronic bilateral low back pain with bilateral sciatica- Primary documented [facility] this [facility]* Diagnosis Onset Date Resolution Status Systolic murmur acute Atherosclerosis of coronary artery of [place] heart without angina pectoris chronic Essential hypertension chron ic Hyperlipidemia chronic [facility] Work Phone: Evaluation note* Diagnosis Chronic midline low back pain without sciatica- Primary documented [facility] this [facility]* Diagnosis Multiple thyroid nodules- Primary Nontoxic multinodular goiter documented in this encounter [facility]* Diagnosis Chronic bilateral low back pain with bilateral sciatica- Primary documented in this encounter [facility] note* Diagnosis Chronic bilateral low back pain with bilateral sciatica- Primary documented in this encounter [facility] note* Diagnosis Multiple thyroid nodules- Primary Nontoxic [...] Fatigue, unspecified type documented in this encounter [facility] note* Diagnosis Encounter for screening mammogram for malignant neoplasm of breast Other screening mammogram documented in this encounter [facility] note* Diagnosis Chronic midline low back [...] Nontoxic multinodular goiter [facility] Diagnosis Chronic midline low back pain without sciatica documented in this encounter [facility]* Diagnosis Injury of sternum, initial encounter Wrist injury, right, initial encounter documented [facility] this [facility]* Diagnosis Acute pain of right shoulder documented [facility] this encounter [facility]* Diagnosis Diabetes mellitus type 2 with [...] arthropathy, multiple sites documented [facility] this encounter [facility]* Diagnosis Essential hypertension Unspecified essential hypertension [facility]* Diagnosis Hospital discharge follow-up- Primary Other follow-up examination Diabetic foot ulcer associated with type 2 diabetes mellitus, unspecified laterality, unspecified part of foot, unspecified ulcer stage (HCC) Abnormality of gait Falling episodes Lack of coordination [facility] this encounter [facility]* Diagnosis 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)- Primary Type II or unspecified type diabetes mellitus with peripheral circulatory disorders, not stated as uncontrolled Hyperglycemia Other abnormal glucose [facility] Maddie Merchant [facility] Note Date/Time May 18, 2025 2:32 am [facility] Medical Records Department [address] [place] [address] H&P Exam - Hospitalist 05/18/25 0201 MR#: [id number] Acct: [id number] Name: GELY FULLER Rep #:[id number] : 1950 75 From: Maddie Merchant MD PCP: Dr. Rishi Vasquez, DO Status:AD M IN Location: MS[facility] [id number] HPI - General General Date of Admission: [...] has been rubbing who presents to the [facility] ED on 05/18/2025 with generalized [...] possibly cellulitis with postoperative changes. [facility] Medical History History of MRSA infection Pressure ulcer Ambulates with cane Shortness of breath on exertion History of edema History of echocardiogram Fall Atherosclerosis of [place] artery of both lower extremities with gangrene [...] stage 3 Atherosclerosis of coronary artery of [place] heart without angina pectoris Hyperlipidemia Peripheral vascular [...] D PRN rash 05/07/25 Unknown History powder ([facility]) acetaminophen 650 mg 650 mg PO Q12H [...] 80.8 H, Lymph % (Auto) 7.4 L, Lea % (Auto) 10.6 H, Eos % (Auto) [...] Clarity Cloudy, Urine pH 5.0, Ur Specific [place] 1.020, Urine Protein 100 H, Urine Glucose [...] IMPRESSION: No acute chest findings. 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 Soft tissue swelling, without obvious soft tissue gas. Possible cellulitis. Reading Location: [facility] Assessment & Plan Assessment/Plan (1) Acute UTI: [...] has been rubbing who presents to the [facility] ED on 05/18/2025 with generalized [...] 16 minutes. Charges/Coding Visit Charges Inpatient E&M: 67604 Init Hosp L3 Procedures Hospitalists Procedures: 02916 Advncd Care Plan 30 Min 05/18/25 0232 <Electronically signed by Maddie Merchant MD> Cosigner Signature (if applicable): CC: Dr. Maddie Merchant MD; Dr. Rishi Vasquez DO~ Signed [facility] Work Phone: Hospital Discharge instructionsAdditional [...] toe-touch touch weightbearing with offloading boot in placeWWilson Health Work Phone: Hospital Discharge instructionsAdditional Instructions PODIATRY BILATERAL LOWER EXTREMITY CARE DISCHARGE AND FOLLOW-UP INSTRUCTIONS: --Dressing change orders to the bilateral extremity: 1. Remove all dressing down to the amniotic skin graft and leave the skin graft intact with jacob. 2. Cover the skin graft with Adaptic, 4 x 4's, light Kerlix wrap, underlying cast padding and Buzz wrap's with 20% compression from sulcus of toes to the mid calf to the bilateral lower extremity. 3. Please change bilateral lower extremity dressing every 3 days. 4. Please offload left lower extremity with Multi-Podus boot. --Weightbearing status: Patient can be weightbearing as tolerated in surgical shoes and walker --Please follow-up with Dr. Irene in private office in 7 to 10 days post-discharge. VASCULAR SURGERY DISCHARGE AND FOLLOW-UP INSTRUCTIONS: --For L groin incision site, Prevena vacuum dressing is to remain in place for 7 days postoperatively (removal date 06/02) as long as it maintains good seal. If it is alarming, loses seal, or otherwise malfunctions then OK to remove sooner as needed. The incision itself is closed with dermabond and Prineo tape which will continue to protect the incision and will peel/flake away on its own with time. For the L lower leg incision, this is also closed with dermabond. OK for both to be open to air as long as there is no drainage. If there is drainage noted, then would apply dry gauze dressings and change daily. From vascular surgical perspective, OK for showers and soap/water can rinse over the incision sites but defer to podiatry regarding bathing restrictions. --With respect to activity, she is not to lift >20 lbs for 3 weeks but otherwise can proceed with activity as tolerated. --Please continue ASA 81mg daily and Plavix 75mg daily. --Please follow-up in vascular surgery office in 2 weeks.[facility] Work Phone: Hospital Discharge instructionsAdditional Instructions Sure his lab work was stable. She has a mild anemia which should continue to be monitored but she does not require blood transfusion today. Her hemoglobin is 7.6. She did have signs of dehydration however her blood pressure improved significantly with 2 L of IV fluid. Continue to push fluids. Continue to give antibiotics.[facility] Work Phone: Hospital Discharge instructionsAdditional Instructions Discharge to [facility] 06/30/2025 right lower extremity vascular surgery.[facility] Work Phone: Reason for referral (narrative)* Diagnostic Procedure Only (Routine) - Closed Specialty Diagnoses / Procedures Referred By Viraj banegas Referred To Contact BR IMAGING Diagnoses Encounter for screening mammogram for malignant neoplasm of breast Procedures ALEJANDRO SCREENING SCREENING MAMMOGRAPHY BI 2-VIEW BREAST INC Rishi Reyes DO [address] [place] [address] Br Imaging [facility] [place] [address] Referral ID Status Reason Start Date Expiration Date V isits Requested Visits Authorized [id number] Closed Auto-Generate d Referral 12/05/2021 01/04/2023 1 1 [facility] for referral (narrative)* Diagnostic Procedure Only (Routine) - Authorized Specialty Diagnoses / Procedures Referred By Viraj banegas Referred To Contact BR IMAGING Diagnoses Abnormal mammogram Procedures US BREAST LTD RT US BREAST UNI REAL TIME WITH IMAGE LIMITED Yani Watts APRN.[employer] [address] [place] [address] Br Imaging [address] [place] [address] Referral ID Status Reason Start Date Expiration Date Visits Requested Visits Authorized [id number] Authorized Auto-Generat ed Referral 06/05/2022 07/05/2023 1 1 * Diagnostic Procedure Only (Routine) - Authorized Specialty Diagnoses / Procedures Referred By Contac t Referred To Contact BR IMAGING Diagnoses Abnormal mammogram Procedures ALEJANDRO DIAGNOSTIC RT DIAGNOSTIC MAMMOGRAPHY COMPUTER-AIDED DETCJ [facility] Yani Watts APRN.[employer] [address] [place] [address] Br Imaging [address] [place] [address] Referral ID Status Reason Start Date Expiration Date Visits Requested Visits Authorized [id number] Authorized Auto-Generat ed Referral 06/05/2022 07/05/2023 1 1 [facility] for referral (narrative)* Diagnostic Procedure Only (Urgent) - Closed Specialty Diagnoses / Procedures Referred By Contac t Referred To Contact XR IMAGING Diagnoses Acute pain of right shoulder Procedures XR SHOULDER GENERAL 3V OR MORE AP/TRUE AP/OTHER RIGHT RADEX SHOULDER COMPLETE MINIMUM 2 VIEWS Kena Sims APRN.[employer] [address] [place] [address] Xr Imaging Referral ID Status Reason Start Date Expiration Date V isits Requested Visits Authorized [id number] Closed Auto-Generate d Referral 06/17/2022 07/17/2023 1 1 [facility] for referral (narrative)* Diagnostic Procedure Only (Urgent) - Closed Specialty Diagnoses / Procedures Referred By Contac t Referred To Contact XR IMAGING Diagnoses Wrist injury, right, initial encounter Procedures XR WRIST INJURY 4V PA/LAT/OBL/SCAPH RIGHT RADEX WRIST COMPLETE MINIMUM 3 VIEWS Camille Mitchell, PASergioC [address] [place] [address] Xr Imaging Referral ID Status Reason Start Date Expiration Date V isits Requested Visits Authorized [id number] Closed Auto-Generate d Referral 08/15/2022 09/14/2023 1 1 * Diagnostic Procedure Only (Urgent) - Closed Specialty Diagnoses / Procedures Referred By Contac t Referred To Contact XR IMAGING Diagnoses Injury of sternum, initial encounter Procedures XR STERNUM 2V BARAJAS/LAT RADEX STERNUM MINIMUM 2 VIEWS Camille Mitchell PA-C [address] [place] [address] Xr Imaging Referral ID Status Reason Start Date Expiration Date V isits Requested Visits Authorized [id number] Closed Auto-Generate d Referral 08/15/2022 09/14/2023 1 1 [facility] for referral (narrative)* Outpatient Procedure (Routine) - Authorized Specialty Diagnoses / Procedures Referred By Viraj t Referred To Contact [facility] Diagnoses Carotid atherosclerosis, bilateral Procedures US CAROTID ARTERIES SADIE VAS LAB DUPLEX SCAN EXTRACRANIAL ART COMPL BI STUDY Rishi Vasquez DO [address] [place] [address] [facility] [place] [address] [place] [address] Referral ID Status Reason Start Date Expiration Date Visits Requested Visits Authorized [id number] Authorized Auto-Generat ed Referral 12/05/2022 12/05/2023 1 1 [facility] for referral (narrative)* Diagnostic Procedure Only (Routine) - Pending Review Specialty Diagnoses / Procedures Referred By Viraj t Referred To Contact BR IMAGING Diagnoses Encounter for screening mammogram for malignant neoplasm of breast Procedures ALEJANDRO SCREENING SCREENING MAMMOGRAPHY BI 2-VIEW BREAST INC CAD Clary Andres, SORT OPERATIONS SUPERVISOR.[employer] [address] [place] [address] Br Imaging [address] [place] [address] Referral ID Status Reason Start Date Expiration Date Visits Requested Visits Authorized [id number] Pending Review Auto-Generat ed Referral 02/07/2023 03/06/2024 1 1 [facility] for referral (narrative)* Diagnostic Procedure Only (Routine) - Authorized Specialty Diagnoses / Procedures Referred By Contac t Referred To Contact BR IMAGING Diagnoses Abnormal mammogram Procedures US BREAST LTD RIGHT US BREAST UNI REAL TIME WITH IMAGE LIMITED Danyelle Tripp PA-C [address] [place] [address] Br Imaging [address] [place] [address] Referral ID Status Reason Start Date Expiration Date Visits Requested Visits Authorized [id number] Authorized Auto-Generat ed Referral 05/29/2023 06/27/2024 1 1 * Diagnostic Procedure Only (Routine) - Authorized Specialty Diagnoses / Procedures Referred By Contac t Referred To Contact BR IMAGING Diagnoses Abnormal mammogram Procedures ALEJANDRO DIAGNOSTIC RIGHT DIAGNOSTIC MAMMOGRAPHY COMPUTER-AIDED DETCJ UNI Danyelle Tripp PA-C [address] [place] [address] Br Imaging [address] [place] [address] Referral ID Status Reason Start Date Expiration Date Visits Requested Visits Authorized [id number] Authorized Auto-Generat ed Referral 05/29/2023 06/27/2024 1 1 [facility] for referral (narrative)* Diagnostic Procedure Only (Routine) - Closed Specialty Diagnoses / Procedures Referred By Contac t Referred To Contact BR IMAGING Diagnoses Encounter for screening mammogram for malignant neoplasm of breast Procedures ALEJANDRO SCREENING SCREENING MAMMOGRAPHY BI 2-VIEW BREAST INC Clary Huerta, YAEL [address] [place] [address] Br Imaging [address] [place] [address] Referral ID Status Reason Start Date Expiration Date V isits Requested Visits Authorized [id number] Closed Auto-Generate d Referral 02/07/2023 03/06/2024 1 1 [facility] for referral (narrative)* Diagnostic Procedure Only (Routine) - Closed Specialty Diagnoses / Procedures Referred By Contac t Referred To Contact BR IMAGING Diagnoses Abnormal mammogram Procedures US BREAST LTD RIGHT US BREAST UNI REAL TIME WITH IMAGE LIMITED Danyelle Tripp PA-C [address] [place] [address] Br Imaging [address] [place] [address] Referral ID Status Reason Start Date Expiration Date V isits Requested Visits Authorized [id number] Closed Auto-Generate d Referral 05/29/2023 06/27/2024 1 1 [facility] for referral (narrative)* Diagnostic Procedure Only (Routine) - Closed Specialty Diagnoses / Procedures Referred By Contac t Referred To Contact MOLECULAR & FUNCTIONAL IMAGING Diagnoses Abnormal thyroid function test Procedures NM THY UPTAKE AND SCAN THYROID UPTAKE W/BLOOD FLOW SNGLE/MULT JAMARI Rishi Arnold DO [address] [place] [address] Molecular & Functional Imaging [address] [place] [address] Referral ID Status Reason Start Date Expiration Date V isits Requested Visits Authorized [id number] Closed Auto-Generate d Referral 12/15/2022 01/14/2024 1 1 [facility] for referral (narrative)* Diagnostic Procedure Only (Routine) - Closed Specialty Diagnoses / Procedures Referred By Contac t Referred To Contact US IMAGING Diagnoses Abnormal thyroid function test Procedures US THYROID/PARATHYROID US SOFT TISSUE HEAD & NECK REAL TIME IMGE DOCM Rishi Vasquez, DO [address] [place] [address] [place] [address] Referral ID Status Reason Start Date Expiration Date V isits Requested Visits Authorized [id number] Closed Auto-Generate d Referral 12/15/2022 01/14/2024 1 1 [facility] for referral (narrative)* Diagnostic Procedure Only (Routine) - Closed Specialty Diagnoses / Procedures Referred By Contac t Referred To Contact XR IMAGING Diagnoses Chronic midline low back pain without sciatica Procedures XR LUMBAR GENERAL 3V AP/LAT/L5-S1 RADEX SPINE LUMBOSACRAL 2/3 VIEWS Rishi Vasquez DO [address] [place] [address] [place] [address] Referral ID Status Reason Start Date Expiration Date V isits Requested Visits Authorized [id number] Closed Auto-Generate d Referral 12/05/2023 01/03/2025 1 1 [facility] for referral (narrative)* Diagnostic Procedure Only (Urgent) - Closed Specialty Diagnoses / Procedures Referred By Contac t Referred To Contact XR IMAGING Diagnoses Wrist injury, right, initial encounter Procedures XR WRIST INJURY 4V PA/LAT/OBL/SCAPH RIGHT RADEX WRIST COMPLETE MINIMUM 3 VIEWS Camille Mitchell PA-C [address] [place] [address] [place] [address] Referral ID Status Reason Start Date Expiration Date V isits Requested Visits Authorized [id number] Closed Auto-Generate d Referral 08/15/2022 09/14/2023 1 1 * Diagnostic Procedure Only (Urgent) - Closed Specialty Diagnoses / Procedures Referred By Contac t Referred To Contact XR IMAGING Diagnoses Injury of sternum, initial encounter Procedures XR STERNUM 2V BARAJAS/LAT RADEX STERNUM MINIMUM 2 VIEWS Camille Mitchell PA-C [address] [place] [address] [place] [address] Referral ID Status Reason Start Date Expiration Date V isits Requested Visits Authorized [id number] Closed Auto-Generate d Referral 08/15/2022 09/14/2023 1 1 [facility] for referral (narrative)* Diagnostic Procedure Only (Urgent) - Closed Specialty Diagnoses / Procedures Referred By Contac t Referred To Contact XR IMAGING Diagnoses Acute pain of right shoulder Procedures XR SHOULDER GENERAL 3V OR MORE AP/TRUE AP/OTHER RIGHT RADEX SHOULDER COMPLETE MINIMUM 2 VIEWS Kena Schrader APRN.CNP [address] [place] [address] [place] [address] Referral ID Status Reason Start Date Expiration Date V isits Requested Visits Authorized [id number] Closed Auto-Generate d Referral 06/17/2022 07/17/2023 1 1 [facility] for referral (narrative)* Diagnostic Procedure Only (Routine) - Authorized Specialty Diagnoses / Procedures Referred By Contac t Referred To Contact BR IMAGING Diagnoses Encounter for screening mammogram for malignant neoplasm of breast Procedures ALEJANDRO SCREENING W BEN SCREENING DIGITAL BREAST TOMOSYNTHESIS BI SCREENING MAMMOGRAPHY BI 2-VIEW BREAST INC Rishi Reyes DO [address] [place] [address] Br Imaging [address] [place] [address] Referral ID Status Reason Start Date Expiration Date Visits Requested Visits Authorized [id number] Authorized Auto-Generat ed Referral 12/05/2024 01/04/2026 1 1 [facility] for referral (narrative)No reason for referral information availableW[facility] Work Phone: Reason for visit Narrative* Diagnostic Procedure Only (Routine) - Closed Specialty Diagnoses / Procedures Referred By Contac t Referred To Contact BR IMAGING Diagnoses Encounter for screening mammogram for malignant neoplasm of breast Procedures ALEJANDRO SCREENING SCREENING MAMMOGRAPHY BI 2-VIEW BREAST INC CAD Rishi Vasquez L, DO [address] [place] [address] Br Imaging [address] [place] [address] Referral ID Status Reason Start Date Expiration Date V isits Requested Visits Authorized [id number] Closed Auto-Generate d Referral 12/05/2021 01/04/2023 1 1 [facility] for visit Narrative* Diagnostic Procedure Only (Routine) - Closed Specialty Diagnoses / Procedures Referred By Contac t Referred To Contact BR IMAGING Diagnoses Encounter for screening mammogram for malignant neoplasm of breast Procedures ALEJANDRO SCREENING SCREENING MAMMOGRAPHY BI 2-VIEW BREAST INC CAD Clary Andres, SORT OPERATIONS SUPERVISOR.[employer] [address] [place] [address] Br Imaging [address] [place] [address] Referral ID Status Reason Start Date Expiration Date V isits Requested Visits Authorized [id number] Closed Auto-Generate d Referral 02/07/2023 03/06/2024 1 1 [facility] for visit Narrative* Diagnostic Procedure Only (Routine) - Closed Specialty Diagnoses / Procedures Referred By Contac t Referred To Contact BR IMAGING Diagnoses Abnormal mammogram Procedures ALEJANDRO DIAGNOSTIC RIGHT DIAGNOSTIC MAMMOGRAPHY COMPUTER-AIDED DETCJ UNI Danyelle Tripp PA-C [address] [place] [address] Br Imaging [address] [place] [address] Referral ID Status Reason Start Date Expiration Date V isits Requested Visits Authorized [id number] Closed Auto-Generate d Referral 05/29/2023 06/27/2024 1 1 [facility] for visit Narrative* Diagnostic Procedure Only (Routine) - Closed Specialty Diagnoses / Procedures Referred By Leeannaac t Referred To Contact MOLECULAR [facility] FUNCTIONAL IMAGING Diagnoses Abnormal thyroid function test Procedures NM THY UPTAKE AND SCAN THYROID UPTAKE W/BLOOD FLOW SNGLE/MULT JAMARI NATALIA Rishi Vasquez L, DO [address] [place] [address] Molecular & Functional Imaging [address] [place] [address] Referral ID Status Reason Start Date Expiration Date V isits Requested Visits Authorized [id number] Closed Auto-Generate d Referral 12/15/2022 01/14/2024 1 [...] BREAST INC CAD Rishi Vasquez, DO [address] [place] [address] Br Imaging [address] [place] [address] Referral ID Status Reason Start Date Expiration Date V isits Requested Visits Authorized [id number] Closed Auto-Generate d Referral 12/05/2023 01/03/2025 1 1 [facility] for visit Narrative* Diagnostic Procedure Only (Routine) - Closed Specialty Diagnoses / Procedures Referred By Contac t Referred To Contact XR IMAGING Diagnoses Chronic midline low back pain without sciatica Procedures XR LUMBAR GENERAL 3V AP/LAT/L5-S1 RADEX SPINE LUMBOSACRAL 2/3 VIEWS Rishi Vasquez, DO [address] [place] [address] [place] [address] Referral ID Status Reason Start Date Expiration Date V isits Requested Visits Authorized [id number] Closed Auto-Generate d Referral 12/05/2023 01/03/2025 1 1 [facility] for visit Narrative* Diagnostic Procedure Only (Urgent) - Closed Specialty Diagnoses / Procedures Referred By Contac t Referred To Contact XR IMAGING Diagnoses Wrist injury, right, initial encounter Procedures XR WRIST INJURY 4V PA/LAT/OBL/SCAPH RIGHT RADEX WRIST COMPLETE MINIMUM 3 VIEWS Camille Mitchell, PASergioC [address] [place] [address] [place] [address] Referral ID Status Reason Start Date Expiration Date V isits Requested Visits Authorized [id number] Closed Auto-Generate d Referral 08/15/2022 09/14/2023 [facility] Procedure Only (Urgent) - Closed Specialty Diagnoses / Procedures Referred By Viraj t Referred To Contact XR IMAGING Diagnoses Acute pain of right shoulder Procedures XR SHOULDER GENERAL 3V OR MORE AP/TRUE AP/OTHER RIGHT RADEX SHOULDER COMPLETE MINIMUM 2 VIEWS Kena Schrader, SORT OPERATIONS SUPERVISOR.[employer] [address] [place] [address] [place] [address] Referral ID Status Reason Start Date Expiration Date V isits Requested Visits Authorized [id number] Closed Auto-Generate d Referral 06/17/2022 07/17/2023 1 1 [facility] Chief Complaint and Reason for Visit Chief Complaint 2020 CARDIAC REHAB P HASE III MAINTENANCE-SELF PAY PHASE III MAINTENANCE SELF-PAY COLONOSCOPY PHASE III MAINTENANCE SELF-PAY 6 M FU / R/S FROM 2-7 MMM PHASE III MAINTENANCE SELF-PAY Reason for Visit Personal history of colonic polyps Carotid artery stenosis Essential hypertension Atherosclerosis of coronary artery of [place] heart without angina pectoris Hyperlipidemia Peripheral vascular occlusive disease Chief Complaint PHASE III MA INTENANCE SELF-PAY COLONOSCOPY PHASE III MAINTENANCE SELF-PAY 6 M FU / R/S FROM 2-7 MMM PHASE III MAINTENANCE SELF-PAY PHASE III MAINTENANCE SELF-PAY Reason for Visit Personal history of colonic polyps Carotid artery stenosis Essential hypertension Atherosclerosis of coronary artery of [place] heart without angina pectoris Hyperlipidemia Peripheral vascular occlusive disease Chief Complaint COLONOSCOPY PHASE III MAINTENANCE SELF-PAY 6 M FU / R/S FROM 2-7 MMM PHASE III MAINTENANCE SELF-PAY PHASE III MAINTENANCE SELF-PAY PHASE III MAINTENANCE SELF-PAY Reason for Visit Personal history of colonic polyps Carotid artery stenosis Essential hypertension Atherosclerosis of coronary artery of [place] heart without angina pectoris Hyperlipidemia Peripheral vascular [...] steno sis Atherosclerosis of coronary artery of [place] heart without angina pectoris Carotid artery stenosis Essential hypertension Hyperlipidemia Peripheral vascular occlusive disease Chief Complaint PHASE III ALFONSO INTENANCE SELF-PAY CAROTID STENOSIS BILAT CAROTID U/S 06/22 PHASE III MAINTENANCE SELF-PAY 6 M FU PHASE III MAINTENANCE SELF-PAY PHASE III MAINTENANCE SELF-PAY Reason for Visit Carotid artery steno sis Atherosclerosis of coronary artery of [place] heart without angina pectoris Carotid artery stenosis Essential hypertension Hyperlipidemia Peripheral vascular occlusive disease Chief Complaint CAROTID STENOSIS SADIE AT CAROTID U/S 06/22 PHASE III MAINTENANCE SELF-PAY 6 M FU PHASE III MAINTENANCE SELF-PAY PHASE III MAINTENANCE SELF-PAY PHASE III MAINTENANCE SELF-PAY Reason for Visit Carotid artery steno sis Atherosclerosis of coronary artery of [place] heart without angina pectoris Carotid artery stenosis Essential hypertension Hyperlipidemia Peripheral vascular occlusive disease Chief Complaint PHASE III ALFONSO INTENANCE SELF-PAY 6 M FU PHASE III MAINTENANCE SELF-PAY PHASE III MAINTENANCE SELF-PAY PHASE III MAINTENANCE SELF-PAY PVD PHASE III MAINTENANCE SELF-PAY Reason for Visit Atherosclerosis of c oronary artery of [place] heart without angina pectoris Carotid artery stenosis Essential hypertension Hyperlipidemia Peripheral vascular occlusive disease Chief Complaint 6 M FU PHASE III MAINTENANCE SELF-PAY PHASE III MAINTENANCE SELF-PAY PHASE III MAINTENANCE SELF-PAY PVD PHASE III MAINTENANCE SELF-PAY Reason for Visit Atherosclerosis of c oronary artery of [place] heart without angina pectoris Carotid artery stenosis [...] Visit Atherosclerosis of c oronary artery of [place] heart without angina pectoris Carotid artery stenosis Essential hypertension Hyperlipidemia Peripheral vascular occlusive disease Chief Complaint 2022 PH III Maintena nce Self-Pay 2022 PH III Maintenance Self-Pay 1 Y FU/Prev PFM Pt 2022 PH III Maintenance Self-Pay CAROTID STENOSIS 2022 PH III Maintenance Self-Pay Reason for Visit Atherosclerosis of c oronary artery of [place] heart without angina pectoris Carotid artery stenosis Essential hypertension Hyperlipidemia Peripheral vascular occlusive disease Chief Complaint 2022 PH III Maintena nce Self-Pay 1 Y FU/Prev PFM Pt 2022 PH III Maintenance Self-Pay CAROTID STENOSIS 2022 PH III Maintenance Self-Pay CAROTID YEARLY CHECK 2022 PH III Maintenance Self-Pay Reason for Visit Atherosclerosis of c oronary artery of [place] heart without angina pectoris Carotid artery stenosis [...] Visit Atherosclerosis of c oronary artery of [place] heart without angina pectoris Carotid artery stenosis [...] Systolic murmur Atherosclerosis of coronary artery of [place] heart without angina pectoris Essential hypertension Hyperlipidemia Chief Complaint 2023 PH3 MAINTENANCE SELF PAY 2023 PH3 MAINTENANCE SELF PAY 9 M FU/PREV PFM 2023 PH3 MAINTENANCE SELF PAY Cardiac murmur, unspecified 2023 PH3 MAINTENANCE SELF PAY Reason for Visit Systolic murmur Atherosclerosis of coronary artery of [place] heart without angina pectoris Essential hypertension Hyperlipidemia [...] 2025 4:25pm Chief Complaint Admit Date 2024 3 maintenance-self pay December 182024 8:00am 2024 PH3 [...] foot March 07 025 4:25pm Atherosclerosis of [place] of both lower extremities with [...] foot March 11 025 5:26pm Atherosclerosis of [place] of both lower extremities with [...] February 17, 2025 6:23am ADULT FTT, FALLS, HSAYY, RHABDO, UTI March 07, 2025 4:25pm ADULT [...] April 03, 2025 10:32 am Atherosclerosis of [place] arteries of ri ght leg wi April [...] foot March 07 025 4:25pm Atherosclerosis of [place] of both lower extremities with [...] foot March 11 025 5:26pm Atherosclerosis of [place] ri[place] of both lower extremities with [...] April 03, 2025 10:32 am Atherosclerosis of [place] arteries of [place] April 15, 2025 10:51am Atherosclerosis of [place] arteries of [place] leg [place] April [...] April 03, 2025 10:32 am Atherosclerosis of [place] arteries of [place] leg [place] April 15, 2025 10:51am Atherosclerosis of [place] arteries of [place] leg [place] April [...] April 03, 2025 10:32 am Atherosclerosis of [place] arteries of [place] leg [place] April 15, 2025 10:51am [facility] [place] [facility] April 15, 2025 4:38pm CAROTID [...] April 03, 2025 10:32 am Atherosclerosis of [place] arteries of [place] leg [place] April 15, 2025 10:51am Atherosclerosis of [place] arteries of [place] g[place] leg [place] April [...] March 07, 2 025 4:25pm Atherosclerosis of [place] riaz of both lower extremities with [...] foot March 11, 025 5:26pm Atherosclerosis of [place] of both lower extremities with [...] 2025 9:17am Atherosclerosis of coronary artery of [place] heart without angina pectoris May 07, 2025 [...] April 03, 2025 10:32 am Atherosclerosis of [place] arteries of [place] April 15, 2025 10:51am Atherosclerosis of [place] arteries of [place] leg [place] April [...] April 03, 2025 10:32 am Atherosclerosis of [place] arteries of [place] leg [place] April 15, 2025 10:51am Atherosclerosis of [place] arteries of [place] leg [place] April [...] April 03, 2025 10:32 am Atherosclerosis of [place] arteries of [place] leg [place] April 15, 2025 10:51am Atherosclerosis of [place] arteries of [place] leg [place] April [...] 4:25pm Osteomyelitis of left foot March 07 2 025 4:25pm Atherosclerosis of [place] riaz of both lower extremities with [...] foot March 11, 025 5:26pm Atherosclerosis of [place] riaz of both lower extremities with [...] 2025 9:17am Atherosclerosis of coronary artery of [place] heart without angina pectoris May 07, 2025 [...] April 03, 2025 10:32 am Atherosclerosis of [place] arteries of [place] April 15, 2025 10:51am Atherosclerosis of [place] arteries of [place] leg [place] April [...] foot March 07 025 4:25pm Atherosclerosis of [place] riaz of both lower extremities with [...] foot March 11 025 5:26pm Atherosclerosis of [place] riaz of both lower extremities with [...] 2025 9:17am Atherosclerosis of coronary artery of [place] heart without angina pectoris May 07, 2025 [...] April 03, 2025 10:32 am Atherosclerosis of [place] arteries of [place] April 15, 2025 10:51am Atherosclerosis of [place] arteries of ri g[place] leg [place] April [...] foot March 07 025 4:25pm Atherosclerosis of [place] ar riaz of both lower extremities with [...] left foot March 11, 5:26pm Atherosclerosis of [place] of both lower extremities with [...] 2025 9:17am Atherosclerosis of coronary artery of [place] heart without angina pectoris May 07, 2025 [...] April 03, 2025 10:32 am Atherosclerosis of [place] arteries of [place] April 15, 2025 10:51am Atherosclerosis of [place] arteries of [place] April [...] UTI, RHABD O May 21, 2025 11:34am GENERALIZED WEAKNESS May 22, 2025 1:29 pm Reason for Visit Admit Date Acute UTI [...] foot March 07 025 4:25pm Atherosclerosis of [place] of both lower extremities with [...] foot March 11, 025 5:26pm Atherosclerosis of [place] of both lower extremities with [...] 2025 9:17am Atherosclerosis of coronary artery of [place] heart without angina pectoris May 07, 2025 [...] fat layer exposed May 18, 2025 2:09am Fall May 22, 2025 1:29p m Generalized weakness May 22, 2025 1:29 pm Type 2 diabetes mellitus with foot ulcer May 22, 2025 1:29pm Non-healing ulcer of right foot May 1:29pm Chief Complaint Admit Date 2024 PH3 maintenance-self [...] April 03, 2025 10:32 am Atherosclerosis of [place] arteries of [place] April 15, 2025 10:51am Atherosclerosis of [place] arteries of [place] April [...] UTI, RHABD O May 21, 2025 11:34am GENERALIZED WEAKNESS May 22, 2025 1:29 pm GENERALIZED WEAKNESS May 23, 2025 7:58 am GENERALIZED WEAKNESS May 24, 2025 7:11 am GENERALIZED WEAKNESS May 25, 2025 11:4 6am GENERALIZED WEAKNESS May 25, 2025 5:36 pm Reason for Visit Admit Date Acute UTI [...] foot March 07 025 4:25pm Atherosclerosis of [place] of both lower extremities with [...] foot March 11 025 5:26pm 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 March 11, 2025 5:26pm Chronic painful diabetic polyneuropathy March 11, 2025 5:26pm PAOD (peripheral arterial occlusive dise ase) April 03, 2025 10:32am Carotid artery stenosis April 03, 2025 1 0:32am Diabetes mellitus with polyneuropathy Ma y 2024 10:32am Atherosclerosis of both lowe r extremities with bilateral ulceration April 03, 2025 10:32am Preop cardiovascular exam May 07 9:17am Systolic murmur May 07, 2025 9:17 am Type 2 diabetes mellitus with hyperglyce leon May 07, 2025 9:17am Atherosclerosis of coronary artery of [place] heart without angina pectoris May 07, 2025 9:17am Essential hypertension May 07, 2025 9 :17am Hyperlipidemia May 07, 2025 9:17 am PAOD (peripheral arterial occlusive dise ase) May 13, 2025 3:35pm Carotid artery stenosis May 13, 2025 3:35pm Diabetes mellitus with polyneuropathy Ju 2024 3:35pm Atherosclerosis of both lowe r extremities with bilateral ulceration May 13, 2025 3:35pm Other specified peripheral vascular dise ases May 18, 2025 2:09am 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 May 18, 2025 2:09am 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 foot with fat layer exposed May 18, 2025 2:09am Non-pressure chronic ulcer o f other part of right foot with fat layer exposed May 18, 2025 2:09am Acute hypoxic respiratory failure April 212024 2:09am Acute UTI May 18, 2025 2:09 am Cellulitis of left ankle May 18, 2025 2:09am Sepsis May 18, 2025 2:09 am Atherosclerosis of both lowe r extremities with bilateral ulceration May 18, 2025 2:09am Type 2 diabetes mellitus with foot ulcer May 18, 2025 2:09am Fall May 25, 2025 11:46 am Generalized weakness May 25, 2025 11:4 6am Other specified peripheral vascular dise ases May 25, 2025 11:46am Non-healing ulcer of right foot May 11:46am 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 foot with fat layer exposed May 25, 2025 11:46am Non-pressure chronic ulcer o f other part of right foot with fat layer exposed May 25, 2025 11:46am Atherosclerosis of both lowe r extremities with bilateral ulceration May 25, 2025 11:46am Type 2 diabetes mellitus with foot ulcer May 25, 2025 11:46am Chief Complaint Admit Date 2024 PH3 maintenance-self [...] April 03, 2025 10:32 am Atherosclerosis of [place] arteries of [place] April 15, 2025 10:51am [facility] [place] [facility] April 15, 2025 4:38pm CAROTID [...] UTI, RHABD O May 21, 2025 11:34am GENERALIZED WEAKNESS May 22, 2025 1:29 pm GENERALIZED WEAKNESS May 23, 2025 7:58 am GENERALIZED WEAKNESS May 24, 2025 7:11 am GENERALIZED WEAKNESS May 25, 2025 11:4 6am GENERALIZED WEAKNESS May 25, 2025 5:36 pm GENERALIZED WEAKNESS May 26, 2025 6:57 am GENERALIZED WEAKNESS May 26, 2025 1:57 pm GENERALIZED WEAKNESS May 27, 2025 6:47 am GENERALIZED WEAKNESS May 27, 2025 10:1 0am GENERALIZED WEAKNESS May 28, 2025 6:5 1am GENERALIZED WEAKNESS May 28, 2025 8:3 2am GENERALIZED WEAKNESS May 29, 2025 6:5 9am GENERALIZED WEAKNESS May 29, 2025 4:5 0pm GENERALIZED WEAKNESS May 30, 2025 7:1 2am GENERALIZED WEAKNESS May 31, 2025 7:0 9am GENERALIZED WEAKNESS June 01, 2025 9:0 4am Reason for Visit Admit Date Acute UTI [...] foot March 07 025 4:25pm Atherosclerosis of [place] of both lower extremities with [...] left foot March 11 5:26pm 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 March 11, 2025 5:26pm Chronic painful diabetic polyneuropathy March 11, 2025 5:26pm Other specified peripheral vascular dise ases March 11, 2025 5:26pm PAOD (peripheral arterial occlusive dise ase) April 03, 2025 10:32am Carotid artery stenosis April 03, 2025 1 0:32am Diabetes mellitus with polyneuropathy Ma y 2024 10:32am Atherosclerosis of both lowe r extremities with bilateral ulceration April 03, 2025 10:32am Preop cardiovascular exam May 07 9:17am Systolic murmur May 07, 2025 9:17 am Type 2 diabetes mellitus with hyperglyce leon May 07, 2025 9:17am Atherosclerosis of coronary artery of [place] heart without angina pectoris May 07, 2025 9:17am Essential hypertension May 07, 2025 9 :17am Hyperlipidemia May 07, 2025 9:17 am PAOD (peripheral arterial occlusive dise ase) May 13, 2025 3:35pm Carotid artery stenosis May 13, 2025 3:35pm Diabetes mellitus with polyneuropathy Ju 2024 3:35pm Atherosclerosis of both lowe r extremities with bilateral ulceration May 13, 2025 3:35pm 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 May 18, 2025 2:09am Acute hypoxic respiratory failure April 212024 2:09am Acute UTI May 18, 2025 2:09 am Cellulitis of left ankle May 18, 2025 2:09am Sepsis May 18, 2025 2:09 am Atherosclerosis of both lowe r extremities with bilateral ulceration May 18, 2025 2:09am 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 foot with fat layer exposed May 18, 2025 2:09am Non-pressure chronic ulcer o f other part of right foot with fat layer exposed May 18, 2025 2:09am Other specified peripheral vascular dise ases May 18, 2025 2:09am Type 2 diabetes mellitus with foot ulcer May 18, 2025 2:09am Acute osteomyelitis of left foot May 11:46am Atherosclerosis of both lowe r extremities with bilateral ulceration May 25, 2025 11:46am Non-healing ulcer of right foot May 11:46am 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 foot with fat layer exposed May 25, 2025 11:46am Non-pressure chronic ulcer o f other part of right foot with fat layer exposed May 25, 2025 11:46am Other specified peripheral vascular dise ases May 25, 2025 11:46am Peripheral vascular occlusive disease Ju 2024 11:46am Type 2 diabetes mellitus with foot ulcer May 25, 2025 11:46am Fall May 25, 2025 11:46 am Generalized weakness May 25, 2025 11:4 6am Chief Complaint Admit Date OSTEIOMYELITIS LEFT FOOT 5TH DIGIT February 16, [...] April 03, 2025 10:32 am Atherosclerosis of [place] arteries of [place] April 15, 2025 10:51am Atherosclerosis of [place] arteries of [place] April [...] UTI, RHABD O May 21, 2025 11:34am GENERALIZED WEAKNESS May 22, 2025 1:29 pm GENERALIZED WEAKNESS May 23, 2025 7:58 am GENERALIZED WEAKNESS May 24, 2025 7:11 am GENERALIZED WEAKNESS May 25, 2025 11:4 6am GENERALIZED WEAKNESS May 25, 2025 5:36 pm GENERALIZED WEAKNESS May 26, 2025 6:57 am GENERALIZED WEAKNESS May 26, 2025 1:57 pm GENERALIZED WEAKNESS May 27, 2025 6:47 am GENERALIZED WEAKNESS May 27, 2025 10:1 0am GENERALIZED WEAKNESS May 28, 2025 6:5 1am GENERALIZED WEAKNESS May 28, 2025 8:3 2am GENERALIZED WEAKNESS May 29, 2025 6:5 9am GENERALIZED WEAKNESS May 29, 2025 4:5 0pm GENERALIZED WEAKNESS May 30, 2025 7:1 2am GENERALIZED WEAKNESS May 31, 2025 7:0 9am GENERALIZED WEAKNESS June 01, 2025 9:0 4am GENERALIZED WEAKNESS June 01, 2025 6:2 1pm GENERALIZED WEAKNESS June 04, 2025 6:0 5pm Reason for Visit Admit Date Acute UTI [...] March 07, 2 025 4:25pm Atherosclerosis of [place] of both lower extremities with [...] foot March 11, 025 5:26pm 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 March 11, 2025 5:26pm Chronic painful diabetic polyneuropathy March 11, 2025 5:26pm PAOD (peripheral arterial occlusive dise ase) April 03, 2025 10:32am Carotid artery stenosis April 03, 2025 1 0:32am Diabetes mellitus with polyneuropathy Ma y 2024 10:32am Atherosclerosis of both lowe r extremities with bilateral ulceration April 03, 2025 10:32am Preop cardiovascular exam May 07 9:17am Systolic murmur May 07, 2025 9:17 am Type 2 diabetes mellitus with hyperglyce leon May 07, 2025 9:17am Atherosclerosis of coronary artery of [place] heart without angina pectoris May 07, 2025 9:17am Essential hypertension May 07, 2025 9 :17am Hyperlipidemia May 07, 2025 9:17 am PAOD (peripheral arterial occlusive dise ase) May 13, 2025 3:35pm Carotid artery stenosis May 13, 2025 3:35pm Diabetes mellitus with polyneuropathy Ju 2024 3:35pm Atherosclerosis of both lowe r extremities with bilateral ulceration May 13, 2025 3:35pm Other specified peripheral vascular dise ases May 18, 2025 2:09am 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 May 18, 2025 2:09am Acute hypoxic respiratory failure April 212024 2:09am Acute UTI May 18, 2025 2:09 am Cellulitis of left ankle May 18, 2025 2:09am Sepsis May 18, 2025 2:09 am Atherosclerosis of both lowe r extremities with bilateral ulceration May 18, 2025 2:09am 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 foot with fat layer exposed May 18, 2025 2:09am Non-pressure chronic ulcer o f other part of right foot with fat layer exposed May 18, 2025 2:09am Type 2 diabetes mellitus with foot ulcer May 18, 2025 2:09am Acute osteomyelitis of left foot May 11:46am Other specified peripheral vascular dise ases May 25, 2025 11:46am Atherosclerosis of both lowe r extremities with bilateral ulceration May 25, 2025 11:46am Non-healing ulcer of right foot May 11:46am 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 foot with fat layer exposed May 25, 2025 11:46am Non-pressure chronic ulcer o f other part of right foot with fat layer exposed May 25, 2025 11:46am Peripheral vascular occlusive disease Ju ly 2024 11:46am Type 2 diabetes mellitus with foot ulcer May 25, 2025 11:46am Fall May 25, 2025 11:46 am Generalized weakness May 25, 2025 11:4 6am Acute osteomyelitis of left ankle May 192024 6:21pm Acute painful diabetic polyneuropathy Ju ly 2024 6:21pm Anemia June 01, 2025 6:21 pm Bacteremia June 01, 2025 6:21 pm Debility June 01, 2025 6:21 pm Essential (primary) hypertension June 012024 6:21pm Other specified peripheral vascular dise ases June 01, 2025 6:21pm PAOD (peripheral arterial occlusive dise ase) June 01, 2025 6:21pm Type 2 diabetes mellitus with hyperglyce leon June 01, 2025 6:21pm Weakness June 01, 2025 6:21 pm Diabetes mellitus with polyneuropathy Ju ly 2024 6:21pm Hyperlipidemia June 01, 2025 6:21 pm Anemia June 05, 2025 5:14 pm Chief Complaint Admit Date OSTEIOMYELITIS LEFT FOOT 5TH DIGIT February 16, [...] April 03, 2025 10:32 am Atherosclerosis of [place] arteries of [place] April 15, 2025 10:51am Atherosclerosis of [place] arteries of [place] April [...] UTI, RHABD O May 21, 2025 11:34am GENERALIZED WEAKNESS May 22, 2025 1:29 pm GENERALIZED WEAKNESS May 23, 2025 7:58 am GENERALIZED WEAKNESS May 24, 2025 7:11 am GENERALIZED WEAKNESS May 25, 2025 11:4 6am GENERALIZED WEAKNESS May 25, 2025 5:36 pm GENERALIZED WEAKNESS May 26, 2025 6:57 am GENERALIZED WEAKNESS May 26, 2025 1:57 pm GENERALIZED WEAKNESS May 27, 2025 6:47 am GENERALIZED WEAKNESS May 27, 2025 10:1 0am GENERALIZED WEAKNESS May 28, 2025 6:5 1am GENERALIZED WEAKNESS May 28, 2025 8:3 2am GENERALIZED WEAKNESS May 29, 2025 6:5 9am GENERALIZED WEAKNESS May 29, 2025 4:5 0pm GENERALIZED WEAKNESS May 30, 2025 7:1 2am GENERALIZED WEAKNESS May 31, 2025 7:0 9am GENERALIZED WEAKNESS June 01, 2025 9:0 4am GENERALIZED WEAKNESS June 01, 2025 6:2 1pm GENERALIZED WEAKNESS June 04, 2025 6:0 5pm 2 [facility] POST OP LEFT FEMORAL June 09 9:26am Reason for Visit Admit Date Acute UTI [...] left foot March 07, 2 025 4:25pm Other specified peripheral vascular dise ases March 07, 2025 4:25pm Atherosclerosis of [place] of both lower extremities with [...] of left foot March 11, 025 5:26pm Other specified peripheral vascular dise ases March 11, 2025 5:26pm 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 March 11, 2025 5:26pm Chronic painful diabetic polyneuropathy March 11, 2025 5:26pm PAOD (peripheral arterial occlusive dise ase) April 03, 2025 10:32am Carotid artery stenosis April 03, 2025 1 0:32am Diabetes mellitus with polyneuropathy Ma y 2024 10:32am Atherosclerosis of both lowe r extremities with bilateral ulceration April 03, 2025 10:32am Preop cardiovascular exam May 07 9:17am Systolic murmur May 07, 2025 9:17 am Type 2 diabetes mellitus with hyperglyce leon May 07, 2025 9:17am Atherosclerosis of coronary artery of [place] heart without angina pectoris May 07, 2025 9:17am Essential hypertension May 07, 2025 9 :17am Hyperlipidemia May 07, 2025 9:17 am PAOD (peripheral arterial occlusive dise ase) May 13, 2025 3:35pm Carotid artery stenosis May 13, 2025 3:35pm Diabetes mellitus with polyneuropathy Ju 2024 3:35pm Atherosclerosis of both lowe r extremities with bilateral ulceration May 13, 2025 3:35pm 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 May 18, 2025 2:09am Acute hypoxic respiratory failure April 212024 2:09am Acute UTI May 18, 2025 2:09 am Cellulitis of left ankle May 18, 2025 2:09am Other specified peripheral vascular dise ases May 18, 2025 2:09am Sepsis May 18, 2025 2:09 am Atherosclerosis of both lowe r extremities with bilateral ulceration May 18, 2025 2:09am 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 foot with fat layer exposed May 18, 2025 2:09am Non-pressure chronic ulcer o f other part of right foot with fat layer exposed May 18, 2025 2:09am Type 2 diabetes mellitus with foot ulcer May 18, 2025 2:09am Acute osteomyelitis of left foot May 11:46am Other specified peripheral vascular dise ases May 25, 2025 11:46am Atherosclerosis of both lowe r extremities with bilateral ulceration May 25, 2025 11:46am Non-healing ulcer of right foot May 11:46am 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 foot with fat layer exposed May 25, 2025 11:46am Non-pressure chronic ulcer o f other part of right foot with fat layer exposed May 25, 2025 11:46am Peripheral vascular occlusive disease Ju 2024 11:46am Type 2 diabetes mellitus with foot ulcer May 25, 2025 11:46am Fall May 25, 2025 11:46 am Generalized weakness May 25, 2025 11:4 6am Acute osteomyelitis of left ankle May 192024 6:21pm Acute painful diabetic polyneuropathy Ju ly 2024 6:21pm Anemia June 01, 2025 6:21 pm Bacteremia June 01, 2025 6:21 pm Debility June 01, 2025 6:21 pm Essential (primary) hypertension June 012024 6:21pm PAOD (peripheral arterial occlusive dise ase) June 01, 2025 6:21pm Type 2 diabetes mellitus with hyperglyce leon June 01, 2025 6:21pm Weakness June 01, 2025 6:21 pm Diabetes mellitus with polyneuropathy Ju ly 2024 6:21pm Hyperlipidemia June 01, 2025 6:21 pm Other specified peripheral vascular dise ases June 01, 2025 6:21pm Anemia June 05, 2025 5:14 pm Chief Complaint Admit Date OSTEIOMYELITIS LEFT FOOT 5TH DIGIT February 16, [...] April 03, 2025 10:32 am Atherosclerosis of [place] arteries of [facility] [place] April 15, 2025 10:51am Atherosclerosis of [place] arteries of [facility] [place] April 15, 2025 4:38pm CAROTID [...] UTI, RHABD O May 21, 2025 11:34am GENERALIZED WEAKNESS May 22, 2025 1:29 pm GENERALIZED WEAKNESS May 23, 2025 7:58 am GENERALIZED WEAKNESS May 24, 2025 7:11 am GENERALIZED WEAKNESS May 25, 2025 11:4 6am GENERALIZED WEAKNESS May 25, 2025 5:36 pm GENERALIZED WEAKNESS May 26, 2025 6:57 am GENERALIZED WEAKNESS May 26, 2025 1:57 pm GENERALIZED WEAKNESS May 27, 2025 6:47 am GENERALIZED WEAKNESS May 27, 2025 10:1 0am GENERALIZED WEAKNESS May 28, 2025 6:5 1am GENERALIZED WEAKNESS May 28, 2025 8:3 2am GENERALIZED WEAKNESS May 29, 2025 6:5 9am GENERALIZED WEAKNESS May 29, 2025 4:5 0pm GENERALIZED WEAKNESS May 30, 2025 7:1 2am GENERALIZED WEAKNESS May 31, 2025 7:0 9am GENERALIZED WEAKNESS June 01, 2025 9:0 4am GENERALIZED WEAKNESS June 01, 2025 6:2 1pm GENERALIZED WEAKNESS June 04, 2025 6:0 5pm 2 [facility]K POST OP LEFT FEMORAL June 09 9:26am general illness June 11, 2025 8:43 am Reason for Visit Admit Date Acute [...] foot March 07 025 4:25pm Atherosclerosis of [place] of both lower extremities with [...] left foot March 11, 5:26pm 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 March 11, 2025 5:26pm Chronic painful diabetic polyneuropathy March 11, 2025 5:26pm PAOD (peripheral arterial occlusive dise ase) April 03, 2025 10:32am Carotid artery stenosis April 03, 2025 1 0:32am Diabetes mellitus with polyneuropathy Ma y 2024 10:32am Atherosclerosis of both lowe r extremities with bilateral ulceration April 03, 2025 10:32am Preop cardiovascular exam May 07 9:17am Systolic murmur May 07, 2025 9:17 am Type 2 diabetes mellitus with hyperglyce leon May 07, 2025 9:17am Atherosclerosis of coronary artery of [place] heart without angina pectoris May 07, 2025 9:17am Essential hypertension May 07, 2025 9 :17am Hyperlipidemia May 07, 2025 9:17 am PAOD (peripheral arterial occlusive dise ase) May 13, 2025 3:35pm Carotid artery stenosis May 13, 2025 3:35pm Diabetes mellitus with polyneuropathy Ju 2024 3:35pm Atherosclerosis of both lowe r extremities with bilateral ulceration May 13, 2025 3:35pm Other specified peripheral vascular dise ases May 18, 2025 2:09am 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 May 18, 2025 2:09am 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 foot with fat layer exposed May 18, 2025 2:09am Non-pressure chronic ulcer o f other part of right foot with fat layer exposed May 18, 2025 2:09am Acute hypoxic respiratory failure April 212024 2:09am Acute UTI May 18, 2025 2:09 am Cellulitis of left ankle May 18, 2025 2:09am Sepsis May 18, 2025 2:09 am Atherosclerosis of both lowe r extremities with bilateral ulceration May 18, 2025 2:09am Type 2 diabetes mellitus with foot ulcer May 18, 2025 2:09am Other specified peripheral vascular dise ases May 25, 2025 11:46am 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 foot with fat layer exposed May 25, 2025 11:46am Non-pressure chronic ulcer o f other part of right foot with fat layer exposed May 25, 2025 11:46am Acute osteomyelitis of left foot May 11:46am Atherosclerosis of both lowe r extremities with bilateral ulceration May 25, 2025 11:46am Non-healing ulcer of right foot May 11:46am Peripheral vascular occlusive disease Ju ly 2024 11:46am Type 2 diabetes mellitus with foot ulcer May 25, 2025 11:46am Fall May 25, 2025 11:46 am Generalized weakness May 25, 2025 11:4 6am Acute osteomyelitis of left ankle May 192024 6:21pm Acute painful diabetic polyneuropathy Ju ly 2024 6:21pm Anemia June 01, 2025 6:21 pm Bacteremia June 01, 2025 6:21 pm Charcot joint of foot June 01, 2025 6: 21pm Debility June 01, 2025 6:21 pm Essential (primary) hypertension June 012024 6:21pm 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 June 01, 2025 6:21pm Other specified peripheral vascular dise ases June 01, 2025 6:21pm PAOD (peripheral arterial occlusive dise ase) June 01, 2025 6:21pm Type 2 diabetes mellitus with hyperglyce leon June 01, 2025 6:21pm Weakness June 01, 2025 6:21 pm Diabetes mellitus with polyneuropathy Ju ly 2024 6:21pm Hyperlipidemia June 01, 2025 6:21 pm 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 foot with fat layer exposed June 01, 2025 6:21pm Non-pressure chronic ulcer o f other part of right foot with fat layer exposed June 01, 2025 6:21pm Cellulitis of left ankle June 01, 2025 6:21pm Type 2 diabetes mellitus with foot ulcer June 01, 2025 6:21pm Anemia June 05, 2025 5:14 pm PAOD (peripheral arterial occlusive dise ase) June 09, 2025 9:26am Chief Complaint Admit Date OSTEIOMYELITIS LEFT FOOT 5TH DIGIT February 16, [...] April 03, 2025 10:32 am Atherosclerosis of [place] arteries of [facility] [place] April 15, 2025 10:51am Atherosclerosis of [place] arteries [facility] April 15, 2025 4:38pm CAROTID STENOSIS April [...] UTI, RHABD O May 18, 2025 12:57pm DIABETIC INFECTED FOOT WOUND, UTI, RHABD O May 19, 2025 6:37am DIABETIC INFECTED FOOT WOUND, UTI, RHABD O May 19, 2025 12:46pm DIABETIC INFECTED FOOT WOUND, UTI, RHABD O May 20, 2025 7:33am DIABETIC INFECTED FOOT WOUND, UTI, RHABD O May 21, 2025 11:34am GENERALIZED WEAKNESS May 22, 2025 1:29 pm GENERALIZED WEAKNESS May 23, 2025 7:58 am GENERALIZED WEAKNESS May 24, 2025 7:11 am GENERALIZED WEAKNESS May 25, 2025 11:4 6am GENERALIZED WEAKNESS May 25, 2025 5:36 pm GENERALIZED WEAKNESS May 26, 2025 6:57 am GENERALIZED WEAKNESS May 26, 2025 1:57 pm GENERALIZED WEAKNESS May 27, 2025 6:47 am GENERALIZED WEAKNESS May 27, 2025 10:1 0am GENERALIZED WEAKNESS May 28, 2025 6:5 1am GENERALIZED WEAKNESS May 28, 2025 8:3 2am GENERALIZED WEAKNESS May 29, 2025 6:5 9am GENERALIZED WEAKNESS May 29, 2025 4:5 0pm GENERALIZED WEAKNESS May 30, 2025 7:1 2am GENERALIZED WEAKNESS May 31, 2025 7:0 9am GENERALIZED WEAKNESS June 01, 2025 9:0 4am GENERALIZED WEAKNESS June 01, 2025 6:2 1pm GENERALIZED WEAKNESS June 04, 2025 6:0 5pm 2 [facility] POST OP LEFT FEMORAL June 09 9:26am general illness June 11, 2025 8:43 am RIGHT ARM PAIN June 12, 2025 9:48 am 2024 PH3 maintenance-self pay June 16, 2025 8:00am Reason for Visit Admit Date Acute UTI [...] foot March 07 025 4:25pm Atherosclerosis of [place] of both lower extremities with [...] left foot March 11 5:26pm 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 March 11, 2025 5:26pm Chronic painful diabetic polyneuropathy March 11, 2025 5:26pm PAOD (peripheral arterial occlusive dise ase) April 03, 2025 10:32am Carotid artery stenosis April 03, 2025 1 0:32am Diabetes mellitus with polyneuropathy Ma y 2024 10:32am Atherosclerosis of both lowe r extremities with bilateral ulceration April 03, 2025 10:32am Preop cardiovascular exam May 07 9:17am Systolic murmur May 07, 2025 9:17 am Type 2 diabetes mellitus with hyperglyce leon May 07, 2025 9:17am Atherosclerosis of coronary artery of [place] heart without angina pectoris May 07, 2025 9:17am Essential hypertension May 07, 2025 9 :17am Hyperlipidemia May 07, 2025 9:17 am PAOD (peripheral arterial occlusive dise ase) May 13, 2025 3:35pm Carotid artery stenosis May 13, 2025 3:35pm Diabetes mellitus with polyneuropathy Ju 2024 3:35pm Atherosclerosis of both lowe r extremities with bilateral ulceration May 13, 2025 3:35pm Other specified peripheral vascular dise ases May 18, 2025 2:09am 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 May 18, 2025 2:09am 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 foot with fat layer exposed May 18, 2025 2:09am Non-pressure chronic ulcer o f other part of right foot with fat layer exposed May 18, 2025 2:09am Acute hypoxic respiratory failure April 212024 2:09am Acute UTI May 18, 2025 2:09 am Cellulitis of left ankle May 18, 2025 2:09am Sepsis May 18, 2025 2:09 am Atherosclerosis of both lowe r extremities with bilateral ulceration May 18, 2025 2:09am Type 2 diabetes mellitus with foot ulcer May 18, 2025 2:09am Other specified peripheral vascular dise ases May 25, 2025 11:46am 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 foot with fat layer exposed May 25, 2025 11:46am Non-pressure chronic ulcer o f other part of right foot with fat layer exposed May 25, 2025 11:46am Acute osteomyelitis of left foot May 11:46am Atherosclerosis of both lowe r extremities with bilateral ulceration May 25, 2025 11:46am Non-healing ulcer of right foot May 11:46am Peripheral vascular occlusive disease Ju 2024 11:46am Type 2 diabetes mellitus with foot ulcer May 25, 2025 11:46am Fall May 25, 2025 11:46 am Generalized weakness May 25, 2025 11:4 6am Acute osteomyelitis of left ankle May 192024 6:21pm Acute painful diabetic polyneuropathy Ju ly 2024 6:21pm Anemia June 01, 2025 6:21 pm Bacteremia June 01, 2025 6:21 pm C. 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 June 01, 2025 6:21pm Other specified peripheral vascular dise ases June 01, 2025 6:21pm PAOD (peripheral arterial occlusive dise ase) June 01, 2025 6:21pm Type 2 diabetes mellitus with hyperglyce leon June 01, 2025 6:21pm Weakness June 01, 2025 6:21 pm Diabetes mellitus with polyneuropathy Ju ly 2024 6:21pm Hyperlipidemia June 01, 2025 6:21 pm 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 foot with fat layer exposed June 01, 2025 6:21pm Non-pressure chronic ulcer o f other part of right foot with fat layer exposed June 01, 2025 6:21pm Cellulitis of left ankle June 01, 2025 6:21pm Type 2 diabetes mellitus with foot ulcer June 01, 2025 6:21pm Anemia June 05, 2025 5:14 pm PAOD (peripheral arterial occlusive dise ase) June 09, 2025 9:26am Chief Complaint Admit Date ADULT FTT, FALLS, SHAYY, RHABDO, UTI March [...] April 03, 2025 10:32 am Atherosclerosis of [place] arteries of [place] leg [place] April 15, 2025 10:51am Atherosclerosis of [place] arteries of [place] leg [place] April [...] UTI, RHABD O May 18, 2025 12:57pm DIABETIC INFECTED FOOT WOUND, UTI, RHABD O May 19, 2025 6:37am DIABETIC INFECTED FOOT WOUND, UTI, RHABD O May 19, 2025 12:46pm DIABETIC INFECTED FOOT WOUND, UTI, RHABD O May 20, 2025 7:33am DIABETIC INFECTED FOOT WOUND, UTI, RHABD O May 21, 2025 11:34am GENERALIZED WEAKNESS May 22, 2025 1:29 pm GENERALIZED WEAKNESS May 23, 2025 7:58 am GENERALIZED WEAKNESS May 24, 2025 7:11 am GENERALIZED WEAKNESS May 25, 2025 11:4 6am GENERALIZED WEAKNESS May 25, 2025 5:36 pm GENERALIZED WEAKNESS May 26, 2025 6:57 am GENERALIZED WEAKNESS May 26, 2025 1:57 pm GENERALIZED WEAKNESS May 27, 2025 6:47 am GENERALIZED WEAKNESS May 27, 2025 10:1 0am GENERALIZED WEAKNESS May 28, 2025 6:5 1am GENERALIZED WEAKNESS May 28, 2025 8:3 2am GENERALIZED WEAKNESS May 29, 2025 6:5 9am GENERALIZED WEAKNESS May 29, 2025 4:5 0pm GENERALIZED WEAKNESS May 30, 2025 7:1 2am GENERALIZED WEAKNESS May 31, 2025 7:0 9am GENERALIZED WEAKNESS June 01, 2025 9:0 4am GENERALIZED WEAKNESS June 01, 2025 6:2 1pm GENERALIZED WEAKNESS June 04, 2025 6:0 5pm 2 [facility] POST OP LEFT FEMORAL June 09 9:26am general illness June 11, 2025 8:43 am RIGHT ARM PAIN June 12, 2025 9:48 am 2024 PH3 maintenance-self pay June 16, 2025 8:00am Chief Complaint Admit Date ADULT FTT, FALLS, SHAYY, RHABDO, UTI March [...] April 03, 2025 10:32 am Atherosclerosis of [place] arteries of [facility] April 15, 2025 10:51am Atherosclerosis of [place] arteries of [facility] April 15, 2025 4:38pm CAROTID STENOSIS April [...] UTI, RHABD O May 18, 2025 12:57pm DIABETIC INFECTED FOOT WOUND, UTI, RHABD O May 19, 2025 6:37am DIABETIC INFECTED FOOT WOUND, UTI, RHABD O May 19, 2025 12:46pm DIABETIC INFECTED FOOT WOUND, UTI, RHABD O May 20, 2025 7:33am DIABETIC INFECTED FOOT WOUND, UTI, RHABD O May 21, 2025 11:34am GENERALIZED WEAKNESS May 22, 2025 1:29 pm GENERALIZED WEAKNESS May 23, 2025 7:58 am GENERALIZED WEAKNESS May 24, 2025 7:11 am GENERALIZED WEAKNESS May 25, 2025 11:4 6am GENERALIZED WEAKNESS May 25, 2025 5:36 pm GENERALIZED WEAKNESS May 26, 2025 6:57 am GENERALIZED WEAKNESS May 26, 2025 1:57 pm GENERALIZED WEAKNESS May 27, 2025 6:47 am GENERALIZED WEAKNESS May 27, 2025 10:1 0am GENERALIZED WEAKNESS May 28, 2025 6:5 1am GENERALIZED WEAKNESS May 28, 2025 8:3 2am GENERALIZED WEAKNESS May 29, 2025 6:5 9am GENERALIZED WEAKNESS May 29, 2025 4:5 0pm GENERALIZED WEAKNESS May 30, 2025 7:1 2am GENERALIZED WEAKNESS May 31, 2025 7:0 9am GENERALIZED WEAKNESS June 01, 2025 9:0 4am GENERALIZED WEAKNESS June 01, 2025 6:2 1pm GENERALIZED WEAKNESS June 04, 2025 6:0 5pm 2 WK POST OP LEFT FEMORAL June 09 9:26am general illness June 11, 2025 8:43 am RIGHT ARM PAIN June 12, 2025 9:48 am 2024 PH3 maintenance-self pay June 16, 2025 8:00am swelling June 19, 2025 8:4 9am GENERALIZED WEAKNESS June 19, 2025 3: 09pm 2024 PH3 maintenance-self pay June 9:48am GENERALIZED WEAKNESS June 25, 2025 9: 02am Reason for Visit Admit Date Acute UTI March 07, 2025 4:2 5pm SHAYY (acute kidney injury) March 07 4:25pm Anemia March 07, 2025 4:2 5pm Chronic painful diabetic polyneuropathy March 07, 2025 4:25pm Contusion of left hip March 07, 2025 [...] foot March 07 025 4:25pm 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 March 07, 2025 4:25pm SHAYY (acute kidney injury) March 11 5:26pm Chronic kidney disease, stage 3b February [id number] 5:26pm Chronic painful diabetic polyneuropathy March 11, 2025 5:26pm Debility March 11, 2025 5:2 6pm [...] foot March 11 025 5:26pm 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 March 11, 2025 5:26pm PAOD (peripheral arterial occlusive dise ase) April 03, 2025 10:32am Carotid artery stenosis April 03, 2025 1 0:32am Diabetes mellitus with polyneuropathy Ma y 2024 10:32am Atherosclerosis of both lowe r extremities with bilateral ulceration April 03, 2025 10:32am Preop cardiovascular exam May 07 9:17am Systolic murmur May 07, 2025 9:17 am Type 2 diabetes mellitus with hyperglyce leon May 07, 2025 9:17am Atherosclerosis of coronary artery of [place] heart without angina pectoris May 07, 2025 9:17am Essential hypertension May 07, 2025 9 :17am Hyperlipidemia May 07, 2025 9:17 am PAOD (peripheral arterial occlusive dise ase) May 13, 2025 3:35pm Carotid artery stenosis May 13, 2025 3:35pm Diabetes mellitus with polyneuropathy Ju ne 2024 3:35pm Atherosclerosis of both lowe r extremities with bilateral ulceration May 13, 2025 3:35pm Other specified peripheral vascular dise ases May 18, 2025 2:09am 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 May 18, 2025 2:09am 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 foot with fat layer exposed May 18, 2025 2:09am Non-pressure chronic ulcer o f other part of right foot with fat layer exposed May 18, 2025 2:09am Acute hypoxic respiratory failure April 212024 2:09am Acute UTI May 18, 2025 2:09 am Cellulitis of left ankle May 18, 2025 2:09am Sepsis May 18, 2025 2:09 am Atherosclerosis of both lowe r extremities with bilateral ulceration May 18, 2025 2:09am Type 2 diabetes mellitus with foot ulcer May 18, 2025 2:09am Other specified peripheral vascular dise ases May 25, 2025 11:46am 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 foot with fat layer exposed May 25, 2025 11:46am Non-pressure chronic ulcer o f other part of right foot with fat layer exposed May 25, 2025 11:46am Acute osteomyelitis of left foot May 11:46am Atherosclerosis of both lowe r extremities with bilateral ulceration May 25, 2025 11:46am Non-healing ulcer of right foot May 11:46am Peripheral vascular occlusive disease Ju ly 2024 11:46am Type 2 diabetes mellitus with foot ulcer May 25, 2025 11:46am Fall May 25, 2025 11:46 am Generalized weakness May 25, 2025 11:4 6am Acute osteomyelitis of left ankle May 192024 6:21pm Acute painful diabetic polyneuropathy Ju ly 2024 6:21pm Anemia June 01, 2025 6:21 pm Bacteremia June 01, 2025 6:21 pm C. 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 June 01, 2025 6:21pm Other specified peripheral vascular dise ases June 01, 2025 6:21pm PAOD (peripheral arterial occlusive dise ase) June 01, 2025 6:21pm Type 2 diabetes mellitus with hyperglyce leon June 01, 2025 6:21pm Weakness June 01, 2025 6:21 pm Chronic osteomyelitis of left foot June 01, 2025 6:21pm Diabetes mellitus with polyneuropathy Ju ly 2024 6:21pm Hyperlipidemia June 01, 2025 6:21 pm 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 foot with fat layer exposed June 01, 2025 6:21pm Non-pressure chronic ulcer o f other part of right foot with fat layer exposed June 01, 2025 6:21pm Cellulitis of left ankle June 01, 2025 6:21pm Type 2 diabetes mellitus with foot ulcer June 01, 2025 6:21pm Anemia June 05, 2025 5:14 pm PAOD (peripheral arterial occlusive dise ase) June 09, 2025 9:26am Family History Relationship Condition Age at Onset [...] Yes January 18, 2022 10:55am Power of Block Splitter Operator Yes January 18 10:55am Documents on File Type Date Recorded Patient Gallery [employer] Museum Guide Expl anation Advance Directive(s) Advance Directive(s) 10/25/2016 10:12 AM Advance Directive(s) 10/25/2016 10:01 AM Advance Directive(s) 10/11/2016 4:06 PM Documents on File Type Date Recorded Patient Gallery Or Museum Guide Expl anation Advance Directive(s) Advance Directive(s) 10/25/2016 10:12 AM Advance Directive(s) 10/25/2016 10:01 AM Advance Directive(s) 10/11/2016 4:06 PM Documents on File Type Date Recorded Patient Gallery Or Museum Guide Expl anation Advance Directive(s) 10/25/2016 10:01 AM Documents on File Type Date Recorded Patient Gallery Or Museum Guide Expl anation Advance Directive(s) 10/25/2016 10:01 AM Advance Directive Response Recorded Date/ Time Advance Directives Yes October 12:55pm Living Will Yes January 18, 2022 9:55am Power of Block Splitter Operator Yes January 18 9:55am Advance Directive Response Recorded Date/ Time Advance Directives Yes February 11 3:27pm Living Will Yes February 12, 2024 3:27pm Power of Block Splitter Operator Yes February 11 3:27pm Advance Directive Response Recorded Date/ Time Living Will Yes October 19 1:13am Do you have a Healthcare Power of Block Splitter Operator? Yes October 19, 2024 1:13am Advance Directives Yes April 02 9:13am Advance Directive Response Recorded Date/ Time Living Will Yes October 19 1:13am Do you have a Healthcare Power of Block Splitter Operator? Yes October 19, 2024 1:13am Living Will No March 07, 2025 1:48pm Do you have a Healthcare Power of Block Splitter Operator? No March 07, 2025 1:48pm Advance Directives Yes April 02 9:13am Advance Directive Response Recorded Date/ Time Do you have a Healthcare Pow er of Block Splitter Operator? Yes March 12, 2025 11:42am Name of Medical Power of Block Splitter Operator Julianne hawkins, sister March 12, 2025 11:42am Living Will No March 07, 2025 5:48pm Do you have a Healthcare Pow er of Block Splitter Operator? No March 07, 2025 5:48pm Advance Directives Yes April 02 9:13am Advance Directive Response Recorded Date/ Time Do you have a Healthcare Pow er of Block Splitter Operator? Yes March 12, 2025 11:42am Name of Medical Power of Block Splitter Operator Julianne hawkins, sister March 12, 2025 11:42am Advance Directives on File Yes March 202024 11:26am Living Will Yes April 15, 2025 1 1:26am Do you have a Healthcare Pow er of Block Splitter Operator? Yes April 15, 2025 11:26am Name of Medical Power of Block Splitter Operator Julianne hawkins April 15, 2025 11:26am Advance Directives Yes April 15 11:26am Living Will No March 07, 2025 5:48pm Do you have a Healthcare Pow er of Block Splitter Operator? No March 07, 2025 5:48pm Advance Directive Response Recorded Date/ Time Do you have a Healthcare Pow er of Block Splitter Operator? Yes March 12, 2025 11:42am Name of Medical Power of Block Splitter Operator Julianne hawkins, sister March 12, 2025 11:42am Advance Directives on File Yes March 202024 11:26am Living Will Yes April 15, 2025 1 1:26am Do you have a Healthcare Pow er of Block Splitter Operator? Yes April 15, 2025 11:26am Name of Medical Power of Block Splitter Operator Julianne hawkins April 15, 2025 11:26am Advance Directives Yes April 15 11:26am Living Will Yes April 02, 2024 9 :13am Do you have a Healthcare Pow er of Block Splitter Operator? Yes April 02, 2024 9:13am Living Will No March 07, 2025 5:48pm Do you have a Healthcare Pow er of Block Splitter Operator? No March 07, 2025 5:48pm Advance Directive Response Recorded Date/ Time Do you have a Healthcare Pow er of Block Splitter Operator? Yes March 12, 2025 11:42am Name of Medical Power of Block Splitter Operator Julianne hawkins, sister March 12, 2025 11:42am Advance Directives on File Yes March 202024 11:26am Living Will Yes April 15, 2025 1 1:26am Do you have a Healthcare Pow er of Block Splitter Operator? Yes April 15, 2025 11:26am Name of Medical Power of Block Splitter Operator Julianne hawkins April 15, 2025 11:26am Advance Directives Yes April 15 11:26am Living Will Yes April 02, 2024 9 :13am Do you have a Healthcare Pow er of Block Splitter Operator? Yes April 02, 2024 9:13am Living Will No March 07, 2025 5:48pm Do you have a Healthcare Pow er of Block Splitter Operator? No March 07, 2025 5:48pm Do you have a Healthcare Pow er of Block Splitter Operator? Yes May 17, 2025 9:43pm Name of Medical Power of Block Splitter Operator Miroslava- sister May 17, 2025 9:43pm Advance Directive Response Recorded Date/ Time Do you have a Healthcare Pow er of Block Splitter Operator? Yes March 12, 2025 11:42am Name of Medical Power of Block Splitter Operator Julianne hawkins, March 12, 2025 11:42am Advance Directives on File Yes March 202024 11:26am Living Will Yes April 15, 2025 1 1:26am Do you have a Healthcare Pow er of Block Splitter Operator? Yes April 15, 2025 11:26am Name of Medical Power of Block Splitter Operator Julianne hawkins April 15, 2025 11:26am Advance Directives Yes April 15 11:26am Living Will Yes April 02, 2024 9 :13am Do you have a Healthcare Pow er of Block Splitter Operator? Yes April 02, 2024 9:13am Living Will No March 07, 2025 5:48pm Do you have a Healthcare Pow er of Block Splitter Operator? No March 07, 2025 5:48pm Do you have a Healthcare Pow er of Block Splitter Operator? Yes May 18, 2025 2:15am Name of Medical Power of Block Splitter Operator Miroslava- sister May 17, 2025 9:43pm Advance Directive Response Recorded Date/ Time Do you have a Healthcare Pow er of Block Splitter Operator? Yes March 12, 2025 11:42am Name of Medical Power of Block Splitter Operator Julianne hawkins, sister March 12, 2025 11:42am Advance Directives on File Yes March 202024 11:26am Living Will Yes April 15, 2025 1 1:26am Do you have a Healthcare Pow er of Block Splitter Operator? Yes April 15, 2025 11:26am Name of Medical Power of Block Splitter Operator Julianne hawkins April 15, 2025 11:26am Advance Directives Yes April 15 11:26am Do you have a Healthcare Pow er of Block Splitter Operator? Yes May 22, 2025 11:40am Name of Medical Power of Block Splitter Operator sister May 22, 2025 11:40am Living Will Yes April 02, 2024 9 :13am Do you have a Healthcare Pow er of Block Splitter Operator? Yes April 02, 2024 9:13am Living Will No March 07, 2025 5:48pm Do you have a Healthcare Pow er of Block Splitter Operator? No March 07, 2025 5:48pm Do you have a Healthcare Pow er of Block Splitter Operator? Yes May 18, 2025 2:15am Name of Medical Power of Block Splitter Operator Miroslava- May 17, 2025 9:43pm Advance Directive Response Recorded Date/ Time Do you have a Healthcare Pow er of Block Splitter Operator? Yes March 12, 2025 11:42am Name of Medical Power of Block Splitter Operator Julianne hawkins, sister March 12, 2025 11:42am Advance Directives on File Yes March 202024 11:26am Living Will Yes April 15, 2025 1 1:26am Do you have a Healthcare Pow er of Block Splitter Operator? Yes April 15, 2025 11:26am Name of Medical Power of Block Splitter Operator Julianne Louise n April 15, 2025 11:26am Advance Directives Yes April 15 11:26am Do you have a Healthcare Pow er of Block Splitter Operator? Yes May 22, 2025 2:40pm Name of Medical Power of Block Splitter Operator sister May 22, 2025 2:40pm Living Will Yes April 02, 2024 9 :13am Do you have a Healthcare Pow er of Block Splitter Operator? Yes April 02, 2024 9:13am Living Will No March 07, 2025 5:48pm Do you have a Healthcare Pow er of Block Splitter Operator? No March 07, 2025 5:48pm Do you have a Healthcare Pow er of Block Splitter Operator? Yes May 18, 2025 2:15am Name of Medical Power of Block Splitter Operator Miroslava- sister May 17, 2025 9:43pm Advance Directive Response Recorded Date/ Time Do you have a Healthcare Pow er of Block Splitter Operator? Yes March 12, 2025 11:42am Name of Medical Power of Block Splitter Operator Julianne hawkins, sister March 12, 2025 11:42am Advance Directives on File Yes March 202024 11:26am Living Will Yes April 15, 2025 1 1:26am Do you have a Healthcare Pow er of Block Splitter Operator? Yes April 15, 2025 11:26am Name of Medical Power of Block Splitter Operator Julianne hawkins April 15, 2025 11:26am Advance Directives Yes April 15 11:26am Do you have a Healthcare Pow er of Block Splitter Operator? Yes May 22, 2025 2:40pm Name of Medical Power of Block Splitter Operator sister May 22, 2025 2:40pm Do you have a Healthcare Pow er of Block Splitter Operator? Yes June 04, 2025 2:14pm Name of Medical Power of Block Splitter Operator Julianne hawkins, sister June 04, 2025 2:14pm Living Will Yes April 02, 2024 9 :13am Do you have a Healthcare Pow er of Block Splitter Operator? Yes April 02, 2024 9:13am Living Will No March 07, 2025 5:48pm Do you have a Healthcare Pow er of Block Splitter Operator? No March 07, 2025 5:48pm Do you have a Healthcare Pow er of Block Splitter Operator? Yes May 18, 2025 2:15am Name of Medical Power of Block Splitter Operator Miroslava- sister May 17, 2025 9:43pm Advance Directive Response Recorded Date/ Time Do you have a Healthcare Pow er of Block Splitter Operator? Yes March 12, 2025 11:42am Name of Medical Power of Block Splitter Operator Julianne hawkins, sister March 12, 2025 11:42am Advance Directives on File Yes March 202024 11:26am Living Will Yes April 15, 2025 1 1:26am Do you have a Healthcare Pow er of Block Splitter Operator? Yes April 15, 2025 11:26am Name of Medical Power of Block Splitter Operator Julianne hawkins April 15, 2025 11:26am Advance Directives Yes April 15 11:26am Do you have a Healthcare Pow er of Block Splitter Operator? Yes May 22, 2025 2:40pm Name of Medical Power of Block Splitter Operator sister May 22, 2025 2:40pm Do you have a Healthcare Pow er of Block Splitter Operator? Yes June 04, 2025 2:14pm Name of Medical Power of Block Splitter Operator Julianne hawkins, sister June 04, 2025 2:14pm Do you have a Healthcare Pow er of Block Splitter Operator? No June 11, 2025 8:52am Living Will Yes April 02, 2024 9 :13am Do you have a Healthcare Pow er of Block Splitter Operator? Yes April 02, 2024 9:13am Living Will No March 07, 2025 5:48pm Do you have a Healthcare Pow er of Block Splitter Operator? No March 07, 2025 5:48pm Do you have a Healthcare Pow er of Block Splitter Operator? Yes May 18, 2025 2:15am Name of Medical Power of Block Splitter Operator Miroslava- sister May 17, 2025 9:43pm Reason for Referral Specialty Diagnoses / Procedures Referred By Viraj banegas Referred To Contact [facility] Diagnoses Chronic midline low back pain without sciatica Procedures CONSULT TO PHYSICAL THERAPY PHYSICAL THERAPY EVALUATION HIGH COMPLEX 45 MINS Rishi Vasquez, [address] [place] [address] [facility] [place] [address] [place] [address] Referral ID Status Reason Start Date Expiration Date Visits Requested Visits Authorized [id number] Authorized Auto-Generat ed Referral 11/19/2023 11/18/2024 99 99 Specialty Diagnoses / Procedures Referred By Viraj banegas Referred To Contact General Surgery Diagnoses Multiple thyroid nodules Procedures CONSULT TO GENERAL SURGERY OFFICE/OUTPATIENT [facility] MDM 60 MINUTES Rishi Vasquez L, DO [address] [place] [address] Referral ID Status Reason Start Date Expiration Date Visits Requested Visits Authorized [id number] Authorized PCP Requested Referral 01/10/2024 01/09/2025 1 1 Specialty Diagnoses / Procedures Referred By Contac t Referred To Contact Pain Management Diagnoses Chronic midline low back pain without sciatica DDD (degenerative disc disease), lumbar Procedures CONSULT TO PAIN MGT OFFICE/OUTPATIENT NEW [facility]IGH MDM 60 MINUTES VasquezRishi L, DO [address] [place] [address] Referral ID Status Reason Start Date Expiration Date Visits Requested Visits Authorized [id number] Authorized PCP Requested Referral 06/04/2024 06/04/2025 1 [...] or prosecute any alcohol or drug abuse patient.[facility] the event this information is protected by the Federal Confidentiality of Alcohol and Drug Abuse Patient Records regulations: The Federal rules restrict any use of the information to criminally investigate or prosecute any alcohol or drug abuse patient.[facility] the event this information is protected by the Federal Confidentiality of Alcohol and Drug Abuse Patient Records regulations: The Federal rules restrict any use of the information to criminally investigate or prosecute any alcohol or drug abuse patient.[facility] the event this information is protected by the Federal Confidentiality of Alcohol and Drug Abuse Patient Records regulations: The Federal rules restrict any use of the information to criminally investigate or prosecute any alcohol or drug abuse patient.[facility] the event this information is protected by the Federal Confidentiality of Alcohol and Drug Abuse Patient Records regulations: The Federal rules restrict any use of the information to criminally investigate or prosecute any alcohol or drug abuse patient.[facility] the event this information is protected by the Federal Confidentiality of Alcohol and Drug Abuse Patient Records regulations: The Federal rules restrict any use of the information to criminally investigate or prosecute any alcohol or drug abuse patient.[facility] the event this information is protected by the Federal Confidentiality of Alcohol and Drug Abuse Patient Records regulations: The Federal rules restrict any use of the information to criminally investigate or prosecute any alcohol or drug abuse patient.[facility] the event this information is protected by the Federal Confidentiality of Alcohol and Drug Abuse Patient Records regulations: The Federal rules restrict any use of the information to criminally investigate or prosecute any alcohol or drug abuse patient.[facility] the event this information is protected by the Federal Confidentiality of Alcohol and Drug Abuse Patient Records regulations: The Federal rules restrict any use of the information to criminally investigate or prosecute any alcohol or drug abuse patient.[facility] the event this information is protected by the Federal Confidentiality of Alcohol and Drug Abuse Patient Records regulations: The Federal rules restrict any use of the information to criminally investigate or prosecute any alcohol or drug abuse patient.[facility] the event this information is protected by the Federal Confidentiality of Alcohol and Drug Abuse Patient Records regulations: The Federal rules restrict any use of the information to criminally investigate or prosecute any alcohol or drug abuse patient.[facility] HospitalIn the event this information is protected by the Federal Confidentiality of Alcohol and Drug Abuse Patient Records regulations: The Federal rules restrict any use of the information to criminally investigate or prosecute any alcohol or drug abuse patient.[facility] HospitalIn the event this information is protected by the Federal Confidentiality of Alcohol and Drug Abuse Patient Records regulations: The Federal rules restrict any use of the information to criminally investigate or prosecute any alcohol or drug abuse patient.[facility] HospitalIn the event this information is protected by the Federal Confidentiality of Alcohol and Drug Abuse Patient Records regulations: The Federal rules restrict any use of the information to criminally investigate or prosecute any alcohol or drug abuse patient.[facility] HospitalIn the event this information is protected by the Federal Confidentiality of Alcohol and Drug Abuse Patient Records regulations: The Federal rules restrict any use of the information to criminally investigate or prosecute any alcohol or drug abuse patient.[facility] HospitalIn the event this information is protected by the Federal Confidentiality of Alcohol and Drug Abuse Patient Records regulations: The Federal rules restrict any use of the information to criminally investigate or prosecute any alcohol or drug abuse patient.[facility] HospitalIn the event this information is protected by the Federal Confidentiality of Alcohol and Drug Abuse Patient Records regulations: The Federal rules restrict any use of the information to criminally investigate or prosecute any alcohol or drug abuse patient.[facility] HospitalIn the event this information is protected by the Federal Confidentiality of Alcohol and Drug Abuse Patient Records regulations: The Federal rules restrict any use of the information to criminally investigate or prosecute any alcohol or drug abuse patient.[facility] HospitalIn the event this information is protected by the Federal Confidentiality of Alcohol and Drug Abuse Patient Records regulations: The Federal rules restrict any use of the information to criminally investigate or prosecute any alcohol or drug abuse patient.[facility] HospitalIn the event this information is protected by the Federal Confidentiality of Alcohol and Drug Abuse Patient Records regulations: The Federal rules restrict any use of the information to criminally investigate or prosecute any alcohol or drug abuse patient.[facility] HospitalIn the event this information is protected by the Federal Confidentiality of Alcohol and Drug Abuse Patient Records regulations: The Federal rules restrict any use of the information to criminally investigate or prosecute any alcohol or drug abuse patient.[facility] HospitalIn the event this information is protected by the Federal Confidentiality of Alcohol and Drug Abuse Patient Records regulations: The Federal rules restrict any use of the information to criminally investigate or prosecute any alcohol or drug abuse patient.[facility] HospitalIn the event this information is protected by the Federal Confidentiality of Alcohol and Drug Abuse Patient Records regulations: The Federal rules restrict any use of the information to criminally investigate or prosecute any alcohol or drug abuse patient.[facility] HospitalIn the event this information is protected by the Federal Confidentiality of Alcohol and Drug Abuse Patient Records regulations: The Federal rules restrict any use of the information to criminally investigate or prosecute any alcohol or drug abuse patient.[facility] HospitalIn the event this information is protected by the Federal Confidentiality of Alcohol and Drug Abuse Patient Records regulations: The Federal rules restrict any use of the information to criminally investigate or prosecute any alcohol or drug abuse patient.[facility] HospitalIn the event this information is protected by the Federal Confidentiality of Alcohol and Drug Abuse Patient Records regulations: The Federal rules restrict any use of the information to criminally investigate or prosecute any alcohol or drug abuse patient.[facility] HospitalIn the event this information is protected by the Federal Confidentiality of Alcohol and Drug Abuse Patient Records regulations: The Federal rules restrict any use of the information to criminally investigate or prosecute any alcohol or drug abuse patient.[facility] HospitalIn the event this information is protected by the Federal Confidentiality of Alcohol and Drug Abuse Patient Records regulations: The Federal rules restrict any use of the information to criminally investigate or prosecute any alcohol or drug abuse patient.[facility] HospitalIn the event this information is protected by the Federal Confidentiality of Alcohol and Drug Abuse Patient Records regulations: The Federal rules restrict any use of the information to criminally investigate or prosecute any alcohol or drug abuse patient.[facility] HospitalIn the event this information is protected by the Federal Confidentiality of Alcohol and Drug Abuse Patient Records regulations: The Federal rules restrict any use of the information to criminally investigate or prosecute any alcohol or drug abuse patient.[facility] HospitalIn the event this information is protected by the Federal Confidentiality of Alcohol and Drug Abuse Patient Records regulations: The Federal rules restrict any use of the information to criminally investigate or prosecute any alcohol or drug abuse patient.[facility] HospitalIn the event this information is protected by the Federal Confidentiality of Alcohol and Drug Abuse Patient Records regulations: The Federal rules restrict any use of the information to criminally investigate or prosecute any alcohol or drug abuse patient.[facility] HospitalIn the event this information is protected by the Federal Confidentiality of Alcohol and Drug Abuse Patient Records regulations: The Federal rules restrict any use of the information to criminally investigate or prosecute any alcohol or drug abuse patient.[facility] HospitalIn the event this information is protected by the Federal Confidentiality of Alcohol and Drug Abuse Patient Records regulations: The Federal rules restrict any use of the information to criminally investigate or prosecute any alcohol or drug abuse patient.[facility] HospitalIn the event this information is protected by the Federal Confidentiality of Alcohol and Drug Abuse Patient Records regulations: The Federal rules restrict any use of the information to criminally investigate or prosecute any alcohol or drug abuse patient.[facility] HospitalIn the event this information is protected by the Federal Confidentiality of Alcohol and Drug Abuse Patient Records regulations: The Federal rules restrict any use of the information to criminally investigate or prosecute any alcohol or drug abuse patient.[facility] HospitalIn the event this information is protected by the Federal Confidentiality of Alcohol and Drug Abuse Patient Records regulations: The Federal rules restrict any use of the information to criminally investigate or prosecute any alcohol or drug abuse patient.[facility] HospitalIn the event this information is protected by the Federal Confidentiality of Alcohol and Drug Abuse Patient Records regulations: The Federal rules restrict any use of the information to criminally investigate or prosecute any alcohol or drug abuse patient.[facility] HospitalIn the event this information is protected by the Federal Confidentiality of Alcohol and Drug Abuse Patient Records regulations: The Federal rules restrict any use of the information to criminally investigate or prosecute any alcohol or drug abuse patient.[facility] HospitalIn the event this information is protected by the Federal Confidentiality of Alcohol and Drug Abuse Patient Records regulations: The Federal rules restrict any use of the information to criminally investigate or prosecute any alcohol or drug abuse patient.[facility] HospitalIn the event this information is protected by the Federal Confidentiality of Alcohol and Drug Abuse Patient Records regulations: The Federal rules restrict any use of the information to criminally investigate or prosecute any alcohol or drug abuse patient.[facility] HospitalIn the event this information is protected by the Federal Confidentiality of Alcohol and Drug Abuse Patient Records regulations: The Federal rules restrict any use of the information to criminally investigate or prosecute any alcohol or drug abuse patient.[facility] HospitalIn the event this information is protected by the Federal Confidentiality of Alcohol and Drug Abuse Patient Records regulations: The Federal rules restrict any use of the information to criminally investigate or prosecute any alcohol or drug abuse patient.[facility] the event this information is protected by the Federal Confidentiality of Alcohol and Drug Abuse Patient Records regulations: The Federal rules restrict any use of the information to criminally investigate or prosecute any alcohol or drug abuse patient.[facility] HospitalIn the event this information is protected by the Federal Confidentiality of Alcohol and Drug Abuse Patient Records regulations: The Federal rules restrict any use of the information to criminally investigate or prosecute any alcohol or drug abuse patient.[facility] HospitalIn the event this information is protected by the Federal Confidentiality of Alcohol and Drug Abuse Patient Records regulations: The Federal rules restrict any use of the information to criminally investigate or prosecute any alcohol or drug abuse patient.[facility]In the event this information is protected by the Federal Confidentiality of Alcohol and Drug Abuse Patient Records regulations: The Federal rules restrict any use of the information to criminally investigate or prosecute any alcohol or drug abuse patient.[facility] HospitalIn the event this information is protected by the Federal Confidentiality of Alcohol and Drug Abuse Patient Records regulations: The Federal rules restrict any use of the information to criminally investigate or prosecute any alcohol or drug abuse patient.[facility] HospitalIn the event this information is protected by the Federal Confidentiality of Alcohol and Drug Abuse Patient Records regulations: The Federal rules restrict any use of the information to criminally investigate or prosecute any alcohol or drug abuse patient.[facility] HospitalIn the event this information is protected by the Federal Confidentiality of Alcohol and Drug Abuse Patient Records regulations: The Federal rules restrict any use of the information to criminally investigate or prosecute any alcohol or drug abuse patient.[facility] HospitalIn the event this information is protected by the Federal Confidentiality of Alcohol and Drug Abuse Patient Records regulations: The Federal rules restrict any use of the information to criminally investigate or prosecute any alcohol or drug abuse patient.[facility] HospitalIn the event this information is protected by the Federal Confidentiality of Alcohol and Drug Abuse Patient Records regulations: The Federal rules restrict any use of the information to criminally investigate or prosecute any alcohol or drug abuse patient.[facility] HospitalIn the event this information is protected by the Federal Confidentiality of Alcohol and Drug Abuse Patient Records regulations: The Federal rules restrict any use of the information to criminally investigate or prosecute any alcohol or drug abuse patient.[facility] HospitalIn the event this information is protected by the Federal Confidentiality of Alcohol and Drug Abuse Patient Records regulations: The Federal rules restrict any use of the information to criminally investigate or prosecute any alcohol or drug abuse patient.[facility] HospitalIn the event this information is protected by the Federal Confidentiality of Alcohol and Drug Abuse Patient Records regulations: The Federal rules restrict any use of the information to criminally investigate or prosecute any alcohol or drug abuse patient.[facility] HospitalIn the event this information is protected by the Federal Confidentiality of Alcohol and Drug Abuse Patient Records regulations: The Federal rules restrict any use of the information to criminally investigate or prosecute any alcohol or drug abuse patient.[facility] HospitalIn the event this information is protected by the Federal Confidentiality of Alcohol and Drug Abuse Patient Records regulations: The Federal rules restrict any use of the information to criminally investigate or prosecute any alcohol or drug abuse patient.[facility] HospitalIn the event this information is protected by the Federal Confidentiality of Alcohol and Drug Abuse Patient Records regulations: The Federal rules restrict any use of the information to criminally investigate or prosecute any alcohol or drug abuse patient.[facility] HospitalIn the event this information is protected by the Federal Confidentiality of Alcohol and Drug Abuse Patient Records regulations: The Federal rules restrict any use of the information to criminally investigate or prosecute any alcohol or drug abuse patient.[facility] HospitalIn the event this information is protected by the Federal Confidentiality of Alcohol and Drug Abuse Patient Records regulations: The Federal rules restrict any use of the information to criminally investigate or prosecute any alcohol or drug abuse patient.[facility] HospitalIn the event this information is protected by the Federal Confidentiality of Alcohol and Drug Abuse Patient Records regulations: The Federal rules restrict any use of the information to criminally investigate or prosecute any alcohol or drug abuse patient.[facility] HospitalIn the event this information is protected by the Federal Confidentiality of Alcohol and Drug Abuse Patient Records regulations: The Federal rules restrict any use of the information to criminally investigate or prosecute any alcohol or drug abuse patient.[facility] HospitalIn the event this information is protected by the Federal Confidentiality of Alcohol and Drug Abuse Patient Records regulations: The Federal rules restrict any use of the information to criminally investigate or prosecute any alcohol or drug abuse patient.[facility] HospitalIn the event this information is protected by the Federal Confidentiality of Alcohol and Drug Abuse Patient Records regulations: The Federal rules restrict any use of the information to criminally investigate or prosecute any alcohol or drug abuse patient.[facility] HospitalIn the event this information is protected by the Federal Confidentiality of Alcohol and Drug Abuse Patient Records regulations: The Federal rules restrict any use of the information to criminally investigate or prosecute any alcohol or drug abuse patient.[facility] HospitalIn the event this information is protected by the Federal Confidentiality of Alcohol and Drug Abuse Patient Records regulations: The Federal rules restrict any use of the information to criminally investigate or prosecute any alcohol or drug abuse patient.[facility] HospitalIn the event this information is protected by the Federal Confidentiality of Alcohol and Drug Abuse Patient Records regulations: The Federal rules restrict any use of the information to criminally investigate or prosecute any alcohol or drug abuse patient.[facility] HospitalIn the event this information is protected by the Federal Confidentiality of Alcohol and Drug Abuse Patient Records regulations: The Federal rules restrict any use of the information to criminally investigate or prosecute any alcohol or drug abuse patient.[facility] HospitalIn the event this information is protected by the Federal Confidentiality of Alcohol and Drug Abuse Patient Records regulations: The Federal rules restrict any use of the information to criminally investigate or prosecute any alcohol or drug abuse patient.[facility] HospitalIn the event this information is protected by the Federal Confidentiality of Alcohol and Drug Abuse Patient Records regulations: The Federal rules restrict any use of the information to criminally investigate or prosecute any alcohol or drug abuse patient.[facility] HospitalIn the event this information is protected by the Federal Confidentiality of Alcohol and Drug Abuse Patient Records regulations: The Federal rules restrict any use of the information to criminally investigate or prosecute any alcohol or drug abuse patient.[facility] HospitalIn the event this information is protected by the Federal Confidentiality of Alcohol and Drug Abuse Patient Records regulations: The Federal rules restrict any use of the information to criminally investigate or prosecute any alcohol or drug abuse patient.[facility] HospitalIn the event this information is protected by the Federal Confidentiality of Alcohol and Drug Abuse Patient Records regulations: The Federal rules restrict any use of the information to criminally investigate or prosecute any alcohol or drug abuse patient.[facility] HospitalIn the event this information is protected by the Federal Confidentiality of Alcohol and Drug Abuse Patient Records regulations: The Federal rules restrict any use of the information to criminally investigate or prosecute any alcohol or drug abuse patient.[facility] HospitalIn the event this information is protected by the Federal Confidentiality of Alcohol and Drug Abuse Patient Records regulations: The Federal rules restrict any use of the information to criminally investigate or prosecute any alcohol or drug abuse patient.[facility] HospitalIn the event this information is protected by the Federal Confidentiality of Alcohol and Drug Abuse Patient Records regulations: The Federal rules restrict any use of the information to criminally investigate or prosecute any alcohol or drug abuse patient.[facility] HospitalIn the event this information is protected by the Federal Confidentiality of Alcohol and Drug Abuse Patient Records regulations: The Federal rules restrict any use of the information to criminally investigate or prosecute any alcohol or drug abuse patient.[facility] HospitalIn the event this information is protected by the Federal Confidentiality of Alcohol and Drug Abuse Patient Records regulations: The Federal rules restrict any use of the information to criminally investigate or prosecute any alcohol or drug abuse patient.[facility] HospitalIn the event this information is protected by the Federal Confidentiality of Alcohol and Drug Abuse Patient Records regulations: The Federal rules restrict any use of the information to criminally investigate or prosecute any alcohol or drug abuse patient.[facility] HospitalIn the event this information is protected by the Federal Confidentiality of Alcohol and Drug Abuse Patient Records regulations: The Federal rules restrict any use of the information to criminally investigate or prosecute any alcohol or drug abuse patient.[facility] HospitalIn the event this information is protected by the Federal Confidentiality of Alcohol and Drug Abuse Patient Records regulations: The Federal rules restrict any use of the information to criminally investigate or prosecute any alcohol or drug abuse patient.[facility] HospitalIn the event this information is protected by the Federal Confidentiality of Alcohol and Drug Abuse Patient Records regulations: The Federal rules restrict any use of the information to criminally investigate or prosecute any alcohol or drug abuse patient.[facility] HospitalIn the event this information is protected by the Federal Confidentiality of Alcohol and Drug Abuse Patient Records regulations: The Federal rules restrict any use of the information to criminally investigate or prosecute any alcohol or drug abuse patient.[facility] HospitalIn the event this information is protected by the Federal Confidentiality of Alcohol and Drug Abuse Patient Records regulations: The Federal rules restrict any use of the information to criminally investigate or prosecute any alcohol or drug abuse patient.[facility] Reason for Visit (unrecogniz ed section and content) Reason Comments PT Discharge Physical Therapy Specialty Diagnoses / Procedures Referred By Contac t Referred To Contact [facility] Diagnoses Chronic midline low back pain without sciatica Procedures CONSULT TO PHYSICAL THERAPY PHYSICAL THERAPY EVALUATION HIGH COMPLEX 45 MINS Rishi Vasquez, DO [address] [place] [address] [facility] [place] [address] [place] [address] Referral ID Status Reason Start Date Expiration Date Visits Requested Visits Authorized [id number] Authorized Auto-Generat ed Referral 11/19/2023 11/18/2024 99 99 Reason Comments Physical Therapy Reason Comments Radiology US Specialty Diagnoses / Procedures Referred By Contac t Referred To Contact [facility] Diagnoses Abnormal thyroid function test Procedures US THYROID/PARATHYROID US SOFT TISSUE HEAD & NECK REAL TIME IMGE DOCM Rishi Vasquez L, DO [address] [place] [address] [place] [address] Referral ID Status Reason Start Date Expiration Date V isits Requested Visits Authorized [id number] Closed Auto-Generate d Referral 12/15/2022 01/14/2024 1 [...] WITH IMAGE LIMITED Danyelle Tripp PA-C [address] [place] [address] [facility] [address] [place] [address] Referral ID Status Reason Start Date Expiration Date V isits Requested Visits Authorized [id number] Closed Auto-Generate d Referral 05/29/2023 06/27/2024 1 1 Reason Comments Radiology NM Specialty Diagnoses / Procedures Referred By Contac t Referred To Contact [facility] Diagnoses Abnormal thyroid function test Procedures NM THY UPTAKE AND SCAN THYROID UPTAKE W/BLOOD FLOW SNGLE/MULT JAMARI NATALIA Rishi Vasquez, DO [address] [place] [address] [facility] [address] [place], [place] [id number] Referral ID Status Reason Start Date Expiration Date V isits Requested Visits Authorized [id number] Closed Auto-Generate d Referral 12/15/2022 01/14/2024 1 1 Reason Onset Date Comments Refill Request 10/03/2023 Reason Comments Radiology US Specialty Diagnoses / Procedures Referred By Contac t Referred To Contact [facility] Diagnoses Multiple thyroid nodules Procedures US THYROID/PARATHYROID US SOFT TISSUE HEAD & NECK REAL TIME IMGE Rishi Menon, DO [address] [place] [address] [facility] [place] [address] Referral ID Status Reason Start Date Expiration Date V isits Requested Visits Authorized [id number] Closed Auto-Generate d Referral 12/05/2023 01/03/2025 1 1 Reason Comments PT Eval Reason Onset Date Comments Refill Request 01/28/2024 Reason Comments Patient Update Reason Comments Results Reason Onset Date Comments Refill Request 03/22/2024 Reason Comments Orders Reason Comments Patient Update Reason Comments Patient Question Fish oil - [place] 3 Reason Comments Patient Question Reason Onset Date Comments Refill Request 12/25/2024 Reason Comments HH Nursing POC Reason Comments [facility] HH PT POC Reason Comments ER F/U [facility] ED -03/20 Multiple falls, gangrene SADIE feet Reason Comments Assisted Plan of Care Reason Comments diabetic f/up Reason Comments Diabetes Reason Comments Medication Problem Reason Comments Results [facility] TCU lab results (A1C & CMP) Care Teams (unrecognized sec tion and content) Car Pre Cooler Relationship Specialty Start Date End Date Rishi Vasquez DO [address] [place], [place] [id number] PCP - General Family Practice 03/26/13 Car Pre Cooler Relationship Specialty Start Date End Date Risih Vasquez DO [address] [place] [address] PCP - General Family Practice 03/26/13 Car Pre Cooler Relationship Specialty Start Date End Date Rishi Vasquez, DO [address] [place] [address] PCP - General Family Practice 03/26/13 Car Pre Cooler Relationship Specialty Start Date End Date Rishi Vasquez, DO [address] [place] [address] PCP - General Family Practice 03/26/13 Car Pre Cooler Relationship Specialty Start Date End Date Rishi Vasquez, DO [address] [place] [address] PCP - General Family Practice 03/26/13 Car Pre Cooler Relationship Specialty Start Date End Date Rishi Vasquez, DO [address] [place] [address] PCP - General Family Practice 03/26/13 Car Pre Cooler Relationship Specialty Start Date End Date Rishi Vasquez, DO [address] [place] [address] PCP - General Family Practice 03/26/13 Car Pre Cooler Relationship Specialty Start Date End Date Rishi Vasquez, DO [address] [place] [address] PCP - General Family Practice 03/26/13 Car Pre Cooler Relationship Specialty Start Date End Date Rishi Vasquez, DO [address] [place] [address] PCP - General Family Practice 03/26/13 Car Pre Cooler Relationship Specialty Start Date End Date Rishi Vasquez, DO [address] [place] [address] PCP - General Family Practice 03/26/13 Car Pre Cooler Relationship Specialty Start Date End Date Rishi Vasquez, DO [address] [place] [address] PCP - General Family Practice 03/26/13 Car Pre Cooler Relationship Specialty Start Date End Date Rishi Vasquez, DO [address] [place] [address] PCP - General Family Medicine 03/26/13 Car Pre Cooler Relationship Specialty Start Date End Date Rishi Vasquez, DO [address] [place] [address] PCP - General Family Medicine 03/26/13 Car Pre Cooler Relationship Specialty Start Date End Date Rishi Vasquez, DO [address] [place] [address] PCP - General Family Medicine 03/26/13 Car Pre Cooler Relationship Specialty Start Date End Date Rishi Vasquez, DO [address] [place] [address] PCP - General Family Medicine 03/26/13 Car Pre Cooler Relationship Specialty Start Date End Date Rishi Vasquez, DO [address] [place] [address] PCP - General Family Medicine 03/26/13 Car Pre Cooler Relationship Specialty Start Date End Date Rishi Vasquez, DO [address] [place] [address] PCP - General Family Medicine 03/26/13 Team [...] Primary Care Provider, Attend ing Provider Active Car Pre Cooler Relationship Specialty Start Date End Date Rishi Vasquez DO [address] [facility] [place] [address] PCP - General Family Medicine 03/26/13 Car Pre Cooler Relationship Specialty Start Date End Date Rishi Vasquez DO [address] [facility] [place] [address] PCP - General Family Medicine 03/26/13 Car Pre Cooler Relationship Specialty Start Date End Date Rishi Vasquez DO [address] [facility] [place] [address] PCP - General Family Medicine 03/26/13 Team Status: Inactive Member Role Status Dates Dr. Rishi Vasquez DO Primary Care Provider, Referr ing Provider Active Rick Bergeron PORTABLE ROUTER OPERATOR, PORTABLE ROUTER OPERATOR-C Attending Provider Active Car Pre Cooler Relationship Specialty Start Date End Date Rishi Vasquez DO [address] [facility] [place] [place] [address] PCP - General Family Medicine 03/26/13 Car Pre Cooler Relationship Specialty Start Date End Date Rishi Vasquez DO [address] [facility] [place] [address] PCP - General Family Medicine 03/26/13 Car Pre Cooler Relationship Specialty Start Date End Date Rishi Vasquez DO [address] [facility] [place] [address] PCP - General Family Medicine 03/26/13 Car Pre Cooler Relationship Specialty Start Date End Date Rihsi Vasquez DO [address] [facility] [place] [address] PCP - General Family Medicine 03/26/13 Team [...] Moscoso MD Attending Provider, Referring Provider Active Car Pre Cooler Relationship Specialty Start Date End Date Rishi Vasquez DO [address] [facility] [place] [place] [address] PCP - General Family Medicine 03/26/13 Team Status: Inactive Member Role Status Dates Dr. Rishi Vasquez DO Primary Care Provider, Referr ing Provider Active Dr. Kwaku Moscoso MD Attending Provider Active Car Pre Cooler Relationship Specialty Start Date End Date Rishi Vasquez DO [address] [facility] [place] [address] PCP - General Family Medicine 03/26/13 Team Status: Inactive Member Role Status Dates Dr. Rishi Vasquez DO Primary Care Provider Active Dr. Brandon Membreno , DPM Attending Provider, Referring Provider Active Car Pre Cooler Relationship Specialty Start Date End Date Rishi Vasquez DO [address] [facility] [place] [address] PCP - General Family Medicine 03/26/13 Car Pre Cooler Relationship Specialty Start Date End Date Rishi Vasquez DO [address] [facility] [place] [address] PCP - General Family Medicine 03/26/13 Car Pre Cooler Relationship Specialty Start Date End Date Rishi Vasquez DO [address] [facility] [place] [address] PCP - General Family Medicine 03/26/13 Car Pre Cooler Relationship Specialty Start Date End Date Rishi Vasquez DO [address] [facility] [place] [address] PCP - General Family Medicine 03/26/13 Car Pre Cooler Relationship Specialty Start Date End Date Rishi Vasquez DO [address] [facility] [place] [address] PCP - General Family Medicine 03/26/13 Car Pre Cooler Relationship Specialty Start Date End Date Rishi Vasquez DO [address] [place] [address] PCP - General Family Medicine 03/26/13 Car Pre Cooler Relationship Specialty Start Date End Date Rishi Vasquez DO [address] [facility] [place] [address] PCP - General Family Medicine 03/26/13 Car Pre Cooler Relationship Specialty Start Date End Date Rishi Vasquez DO [address] [place] [address] PCP - General Family Medicine 03/26/13 Car Pre Cooler Relationship Specialty Start Date End Date Rishi Vasquez DO [address] [place] [address] PCP - General Family Medicine 03/26/13 Team Status: Inactive Member Role Status Dates Dr. Rishi Vasquez DO Primary Care Provider, Referr ing Provider Active Dr. Ciaran Jacobo MD Attending Provider Active Car Pre Cooler Relationship Specialty Start Date End Date Rishi Vasquez DO [address] [place] [address] PCP - General Family Medicine 03/26/13 Car Pre Cooler Relationship Specialty Start Date End Date Rishi Vasquez DO [address] [facility] [place] [address] PCP - General Family Medicine 03/26/13 Car Pre Cooler Relationship Specialty Start Date End Date Rishi Vasquez DO [address] [facility] [place] [address] PCP - General Family Medicine 03/26/13 Team Status: Active Member Role Status Dates Dr. Rishi Vasquez DO Primary Care Provider Active Dr. Elyssa Fierro MD Attending Provider Activ e Team Status: Inactive Member Role Status Dates Dr. Rishi Vasquez DO Primary Care Provider Active Dr. Ciaran Jacobo MD Attending Provider, Referring Provider Active Car Pre Cooler Relationship Specialty Start Date End Date Rishi Vasquez DO [address] [facility] [place] [address] PCP - General Family Medicine 03/26/13 Car Pre Cooler Relationship Specialty Start Date End Date Rishi Vasquez DO [address] [facility] [place] [address] PCP - General Family Medicine 03/26/13 Car Pre Cooler Relationship Specialty Start Date End Date Rishi Vasquez DO [address] [facility] [place] [address] PCP - General Family Medicine 03/26/13 Car Pre Cooler Relationship Specialty Start Date End Date Rishi Vasquez DO [address] [facility] [place] [address] PCP - General Family Medicine 03/26/13 Car Pre Cooler Relationship Specialty Start Date End Date Rishi Vasquez DO [address] [place] [address] PCP - General Family Medicine 03/26/13 Car Pre Cooler Relationship Specialty Start Date End Date Rishi Vasquez DO [address] [facility] [place] [address] PCP - General Family Medicine 03/26/13 Car Pre Cooler Relationship Specialty Start Date End Date Rishi Vasquez DO [address] [place] [address] PCP - General Family Medicine 03/26/13 Car Pre Cooler Relationship Specialty Start Date End Date Rishi Vasquez DO [address] [place] [address] PCP - General Family Medicine 03/26/13 Car Pre Cooler Relationship Specialty Start Date End Date Rishi Vasquez DO [address] [place] [address] PCP - General Family Medicine 03/26/13 Car Pre Cooler Relationship Specialty Start Date End Date Rishi Vasquez DO [address] [place] [address] PCP - General Family Medicine 03/26/13 Car Pre Cooler Relationship Specialty Start Date End Date Rishi Vasquez DO [address] [place] [address] PCP - General Family Medicine 03/26/13 Car Pre Cooler Relationship Specialty Start Date End Date Rishi Vasquez DO [address] [place] [address] PCP - General Family Medicine 03/26/13 Clary Andres, TAY.[employer] HORSE HITCH DRIVER [address] [place] [address] [facility]24 VioletaYani, SORT OPERATIONS SUPERVISOR.SI[employer] HORSE HITCH DRIVER [address] [place] [address] Counts Include 234 Beds At [facility] 10/26/24 Car Pre Cooler Relationship Specialty Start Date End Date Rishi Vasquez DO [address] [place] [address] PCP - General Family Medicine 03/26/13 Clary Andres, SORT OPERATIONS SUPERVISOR.[employer] H[employer]SE HITCH DRIVER [address] [place] [address] [facility]/26/24 VioletaYani, SORT OPERATIONS SUPERVISOR.SIX HORSE HITCH DRIVER [address] [place] [address] Counts Include 234 Beds At [facility] 10/26/24 Team Status: Active Member Role [...] Referring Provider Active Start: March 07, 2025 Car Pre Cooler Relationship Specialty Start Date End Date Rishi Vasquez DO [address] [place] [address] PCP - General Family Medicine 03/26/13 Yani Watts APRN.[employer] H[employer] HITCH DRIVER [address] [place] [address] Cpr Ambulance Driver Family [facility] 10/26/24 Car Pre Cooler Relationship Specialty Start Date End Date Rishi Vasquez DO [address] [place] [address] PCP - General Family Medicine 03/26/13 Yani Watts, TAY.[employer] H[employer]SE HITCH DRIVER [address] [place] [address] Cpr Ambulance Driver [facility] 10/26/24 Car Pre Cooler Relationship Specialty Start Date End Date Rishi Vasquez DO [address] [place] [address] PCP - General [facility] 03/26/13 Yani Watts, TAY.[employer] H[employer]SE HITCH DRIVER [address] [place] [address] Cpr Ambulance Driver [facility] 10/26/24 Team Status: Inactive Member Role [...] End: March 11, 2025 Dr. Patel Irene , [place] Other Provider Active St art: March 07, [...] St art: March 11, 2025 Dr. Maddie Mecrhant MD Other Provider Active St art: March [...] April 15, 2025 End: April 15, 2025 Car Pre Cooler Relationship Specialty Start Date End Date Rishi Vasquez DO [address] [place], [place] [address] PCP - General Family Medicine 03/26/13 Yani Watts APRN.[employer] H[employer] HITCH DRIVER [address] [place] [address] Cpr Ambulance Driver [facility] 10/26/24 Car Pre Cooler Relationship Specialty Start Date End Date Rishi Vasquez DO [address] [place] [address] PCP - General Family Medicine 03/26/13 Violeta YaniTAY.SIX HORSE HITCH DRIVER [address] [facility] [place] [place] [address] Cpr Ambulance Driver Family Medicine 10/26/24 Team Status: Inactive Member Role Status [...] Active Start: April 21, 2025 Dr. Rishi Vsaquez DO Attending Provider Active Start: April 21, 2025 Dr. Rishi Vasquez DO Referring Provider Active Start: April 21, 2025 Car Pre Cooler Relationship Specialty Start Date End Date Rishi Vasquez DO [address] [facility] [place] [place] [address] PCP - [facility] 03/26/13 [facility], SORT OPERATIONS SUPERVISOR.[employer] HORSE HITCH DRIVER [address] [facility] [place] [address] Counts Include 234 Beds At [facility] 10/26/24 Team Status: Active Member Role [...] April 27, 2025 End: April 27, 2025 Car Pre Cooler Relationship Specialty Start Date End Date Rishi Vasquez DO [address] [facility] [place] [place] [address] PCP - [facility] 03/26/13 [facility], SORT OPERATIONS SUPERVISOR.[employer] H[employer]SE HITCH DRIVER [address] [facility] [place] [address] Counts Include 234 Beds At [facility] 10/26/24 Team Status: Active Member Role [...] 2025 End: May 07, 2025 Rick Bergeron PORTABLE ROUTER OPERATOR, PORTABLE ROUTER OPERATOR-C Attending Provider Active S tart: May 07, 2025 End: May 07, 2025 Car Pre Cooler Relationship Specialty Start Date End Date Rishi Vasquez DO [address] [place] [address] PCP - General Family Medicine 03/26/13 Yani Watts, SORT OPERATIONS SUPERVISOR.SI[employer] H[employer]SE HITCH DRIVER [address] [place] [address] Cpr Ambulance Driver Family Medicine 10/26/24 Ld Artis, SORT OPERATIONS SUPERVISOR.[employer] H[employer]SE HITCH DRIVER [address] [place], [place] [address] Cpr Ambulance Driver Family [facility] 05/04/25 Team Status: Inactive Member Role Status [...] Role/Relationship Status Dates Dr. Rishi Vasquez , DO Primary Care Provider Active Start: March 08, 2025 Dr. Esteban Becker , DO Emergency Provider Active Start : [...] Start: March 09, 2025 Dr. Esteban Becker , DO Emergency Provider Active Start : [...] Start: March 09, 2025 Dr. Esteban Becker , DO Emergency Provider Active Start : [...] 2025 End: March 20, 2025 Dr. Patel Ierne DPM Other Provider Active St art: March [...] Active Start: March 13, 2025 Dr. Patel rIene DPM Other Provider Active St art: March [...] 2025 End: May 07, 2025 Rick Bergeron PORTABLE ROUTER OPERATOR, PORTABLE ROUTER OPERATOR-C Attending Provider Active S tart: May 07, [...] May 18, 2025 Dr. Michaela Joshua , Attending Provider [...] End: May 21, 2025 Dr. Jerri Castillo , DO Emergency Provider Active S tart: May [...] tart: May 19, 2025 Dr. Jacinto Tamez , Other Provider [...] Provider Active Start: May 19, 2025 Dr. Gain Orozco MD Other Provider Active Start : [...] Start : May 19, 2025 Dr. Vida Dya MD Other Provider Active Star t: May [...] tart: May 20, 2025 Dr. Jerri Castillo , DO Emergency Provider Active S tart: May [...] Active S tart: May 21, 2025 Dr. Jerir Castillo DO Emergency Provider Active S tart: [...] Provider Active Start : May 21, 2025 Team Status: Active Member Role/Relationship Status Dates Dr. Rishi Vasquez DO Primary Care Provider Active Start: May 22, 2025 Dr. Heron Wilde , Emergency Provider Active Start: May 22, 2025 Dr. Wilberto Suazo , DO Admit Provider Active Start: May 22, 2025 Dr. Wilberto Suazo , DO Attending Provider Active Start: May 22, 2025 Dr. Wilberto Suazo , DO Referring Provider Active Start: May 22, 2025 Team Status: Active Member Role/Relationship Status Dates Dr. Rishi Vasquez , DO Primary Care Provider Active Start: May 22, 2025 Dr. Heron Wilde , DO Emergency Provider Active Start: May 22, 2025 Dr. Wilberto Suazo , DO Admit Provider Active Start: May 22, 2025 Dr. Wilberto Suazo , DO Attending Provider Active Start: May 22, 2025 Dr. Wilberto Suazo , DO Referring Provider Active Start: May 22, 2025 Dr. Wilberto Suazo , DO Other Provider Active Start: May 22, 2025 Team Status: Active Member Role/Relationship Status Dates Dr. Rishi Vasquez , DO Primary Care Provider Active Start: May 23, 2025 Dr. Heron Wilde , DO Emergency Provider Active Start: May 23, 2025 Dr. Wilberto Suazo , DO Admit Provider Active Start: May 23, 2025 Dr. Wilberto Suazo , DO Referring Provider Active Start: May 23, 2025 Dr. Wilberto Suazo , DO Other Provider Active Start: May 23, 2025 Dr. Michaela Joshua , DO Attending Provider Active S tart: May 23, 2025 Dr. Michaela Joshua , DO Other Provider Active Start : May 23, 2025 Dr. Patel Irene , [place] Other Provider Active St art: May 23, 2025 Team Status: Active Member Role/Relationship Status Dates Dr. Rishi Vasquez DO Primary Care Provider Active Start: May 24, 2025 Dr. Heron Wilde , DO Emergency Provider Active Start: May 24, 2025 Dr. Wilberto Suazo , DO Admit Provider Active Start: May 24, 2025 Dr. Wilberto Suazo , DO Referring Provider Active Start: May 24, 2025 Dr. Wilberto Suazo , DO Other Provider Active Start: May 24, 2025 Dr. Michaela Joshua , DO Attending Provider Active S tart: May 24, 2025 Dr. Michaela Joshua , DO Other Provider Active Start : May 24, 2025 Dr. Patel Irene , [place] Other Provider Active St art: May 24, 2025 Dr. Russell Clement MD Other Provider Active Start : May 24, 2025 Team Status: Active Member Role/Relationship Status Dates Dr. Rishi Vasquez , DO Primary Care Provider Active Start: May 25, 2025 Dr. Heron Wilde , DO Emergency Provider Active Start: May 25, 2025 Dr. Wilberto Suazo , DO Admit Provider Active Start: May 25, 2025 Dr. Wilberto Suazo , DO Referring Provider Active Start: May 25, 2025 Dr. Wilberto Suazo , DO Other Provider Active Start: May 25, 2025 Dr. Patel Irene DPM Other Provider Active St art: May 25, 2025 Dr. Russell Clement MD Other Provider Active Start : May 25, 2025 Dr. Maddie Merchant MD Attending Provider Active Start: May 25, 2025 Dr. Michaela Joshua , DO Other Provider Active Start : May 25, 2025 Team Status: Active Member Role/Relationship Status Dates Dr. Rishi Vasquez DO Primary Care Provider Active Start: May 25, 2025 Dr. Heron Wilde , DO Emergency Provider Active Start: May 25, 2025 Dr. Wilberto Suazo , DO Admit Provider Active Start: May 25, 2025 Dr. Wilberto Suazo DO Referring Provider Active Start: May 25, 2025 Dr. Wilberto Suazo DO Other Provider Active Start: May 25, 2025 Dr. Patel Irene DPM Other Provider Active St art: May 25, 2025 Dr. Russell Clement MD Attending Provider Active S tart: May 25, 2025 Dr. Russell Clement MD Other Provider Active Start : May 25, 2025 Dr. Maddie Merchant MD Other Provider Active St art: May 25, 2025 Dr. Michaela Joshua , DO Other Provider Active Start : May 25, 2025 Team Status: Inactive Member Role/Relationship Status Dates Dr. Rishi Vasquez , DO Primary Care Provider Active Start: May 25, 2025 End: June 01, 2025 Dr. Heron Wilde , DO Emergency Provider Active Start: May 25, 2025 End: June 01, 2025 Dr. Wilberto Suazo , DO Admit Provider Active Start: May 25, 2025 End: June 01, 2025 Dr. Wilberto Suazo DO Referring Provider Active Start: May 25, 2025 End: June 01, 2025 Dr. Wilberto Suazo , DO Other Provider Active Start: May 25, 2025 End: June 01, 2025 Dr. Michaela Tres , DO Other Provider Active Start : May 25, 2025 End: June 01, 2025 Dr. Patel Irene DPM Other Provider Active St art: May 25, 2025 End: June 01, 2025 Dr. Russell Clement MD Other Provider Active Start : May 25, 2025 End: June 01, 2025 Dr. Christos Morrow MD Attending Provider Active Start: May 25, 2025 End: June 01, 2025 Dr. Maddie Merchant MD Other Provider Active St art: May 25, 2025 End: June 01, 2025 Team Status: Active Member Role/Relationship Status Dates Dr. Rishi Vasquez DO Primary Care Provider Active Start: May 26, 2025 Dr. Heron Wilde DO Emergency Provider Active Start: May 26, 2025 Dr. Wilberto Suazo DO Admit Provider Active Start: May 26, 2025 Dr. Wilberto Suazo DO Referring Provider Active Start: May 26, 2025 Dr. Wilberto Suazo DO Other Provider Active Start: May 26, 2025 Dr. Maddie Merchant MD Attending Provider Active Start: May 26, 2025 Dr. Maddie Merchant MD Other Provider Active St art: May 26, 2025 Dr. Michaela Joshua DO Other Provider Active Start : May 26, 2025 Dr. Patel Irene DPM Other Provider Active St art: May 26, 2025 Dr. Russell Clement MD Other Provider Active Start : May 26, 2025 Team Status: Active Member Role/Relationship Status Dates Dr. Rishi Vasquez DO Primary Care Provider Active Start: May 26, 2025 Dr. Heron Wilde DO Emergency Provider Active Start: May 26, 2025 Dr. Wilberto Suazo DO Admit Provider Active Start: May 26, 2025 Dr. Wilberto Suazo DO Referring Provider Active Start: May 26, 2025 Dr. Wilberto Suazo DO Other Provider Active Start: May 26, 2025 Dr. Patel Irene DPM Other Provider Active St art: May 26, 2025 Dr. Russell Clement MD Attending Provider Active S tart: May 26, 2025 Dr. Russell Clement MD Other Provider Active Start : May 26, 2025 Dr. Maddie Merchant MD Other Provider Active St art: May 26, 2025 Dr. Michaela Tres , DO Other Provider Active Start : May 26, 2025 Team Status: Active Member Role/Relationship Status Dates Dr. Rishi Vasquez , DO Primary Care Provider Active Start: May 27, 2025 Dr. Heron Wilde , DO Emergency Provider Active Start: May 27, 2025 Dr. Wilberto Suazo , DO Admit Provider Active Start: May 27, 2025 Dr. Wilberto Suazo , DO Referring Provider Active Start: May 27, 2025 Dr. Wilberto Suazo , DO Other Provider Active Start: May 27, 2025 Dr. Maddie Merchant MD Attending Provider Active Start: May 27, 2025 Dr. Maddie Merchant MD Other Provider Active St art: May 27, 2025 Dr. Michaela Joshua , DO Other Provider Active Start : May 27, 2025 Dr. Patel Irene DPM Other Provider Active St art: May 27, 2025 Dr. Russell Clement MD Other Provider Active Start : May 27, 2025 Team Status: Active Member Role/Relationship Status Dates Dr. Rishi Vasquez DO Primary Care Provider Active Start: May 27, 2025 Dr. Heron Wilde , DO Emergency Provider Active Start: May 27, 2025 Dr. Wilberto Suazo , DO Admit Provider Active Start: May 27, 2025 Dr. Wilberto Suazo DO Referring Provider Active Start: May 27, 2025 Dr. Wilberto Suazo , DO Other Provider Active Start: May 27, 2025 Dr. Maddie Merchant MD Other Provider Active St art: May 27, 2025 Dr. Michaela Joshua , DO Other Provider Active Start : May 27, 2025 Dr. Patel Irene DPM Other Provider Active St art: May 27, 2025 Dr. Russell Clement MD Other Provider Active Start : May 27, 2025 LILLIAM Gilmore Attending Provider Active Star t: May 27, 2025 Team Status: Active Member Role/Relationship Status Dates Dr. Rishi Vasquez DO Primary Care Provider Active Start: May 28, 2025 Dr. Heron Wilde DO Emergency Provider Active Start: May 28, 2025 Dr. Wilberto Suazo , DO Admit Provider Active Start: May 28, 2025 Dr. Wilberto Suazo , DO Referring Provider Active Start: May 28, 2025 Dr. Wilberto Suazo , DO Other Provider Active Start: May 28, 2025 Dr. Maddie Merchant MD Attending Provider Active Start: May 28, 2025 Dr. Maddie Merchant MD Other Provider Active St art: May 28, 2025 Dr. Michaela Joshua , DO Other Provider Active Start : May 28, 2025 Dr. Patel Irene DPM Other Provider Active St art: May 28, 2025 Dr. Russell Clement MD Other Provider Active Start : May 28, 2025 Team Status: Active Member Role/Relationship Status Dates Dr. Rishi Vasquez DO Primary Care Provider Active Start: May 28, 2025 Dr. Heron Wilde DO Emergency Provider Active Start: May 28, 2025 Dr. Wilberto Suazo , DO Admit Provider Active Start: May 28, 2025 Dr. Wilberto Suazo DO Referring Provider Active Start: May 28, 2025 Dr. Wilberto Suazo DO Other Provider Active Start: May 28, 2025 Dr. Maddie Merchant MD Other Provider Active St art: May 28, 2025 Dr. Michaela Joshua , DO Other Provider Active Start : May 28, 2025 Dr. Patel Irene DPM Other Provider Active St art: May 28, 2025 Dr. Russell Clement MD Other Provider Active Start : May 28, 2025 LILLIAM Gilmore Attending Provider Active Star t: May 28, 2025 Team Status: Active Member Role/Relationship Status Dates Dr. Rishi Vasquez DO Primary Care Provider Active Start: May 29, 2025 Dr. Heron Wilde DO Emergency Provider Active Start: May 29, 2025 Dr. Wilberto Suazo , DO Admit Provider Active Start: May 29, 2025 Dr. Wilberto Suazo DO Referring Provider Active Start: May 29, 2025 Dr. Wilberto Suazo DO Other Provider Active Start: May 29, 2025 Dr. Maddie Merchant MD Attending Provider Active Start: May 29, 2025 Dr. Maddie Merchant MD Other Provider Active St art: May 29, 2025 Dr. Michaela Joshua , DO Other Provider Active Start : May 29, 2025 Dr. Patel Irene DPM Other Provider Active St art: May 29, 2025 Dr. Russell Clement MD Other Provider Active Start : May 29, 2025 Team Status: Active Member Role/Relationship Status Dates Dr. Rishi Vasquez , DO Primary Care Provider Active Start: May 29, 2025 Dr. Heron Wilde , DO Emergency Provider Active Start: May 29, 2025 Dr. Wilberto Suazo , DO Admit Provider Active Start: May 29, 2025 Dr. Wilberto Suazo , DO Referring Provider Active Start: May 29, 2025 Dr. Wilberto Suazo , DO Other Provider Active Start: May 29, 2025 Dr. Michaela Joshua , DO Other Provider Active Start : May 29, 2025 Dr. Patel Irene DPM Other Provider Active St art: May 29, 2025 Dr. Russell Clement MD Other Provider Active Start : May 29, 2025 Dr. Christos Morrow MD Other Provider Active Star t: May 29, 2025 Dr. Maddie Merchant MD Other Provider Active St art: May 29, 2025 LILLIAM Gilmore Attending Provider Active Star t: May 29, 2025 Team Status: Active Member Role/Relationship Status Dates Dr. Rishi Vasquez , DO Primary Care Provider Active Start: May 30, 2025 Dr. Heron Wilde , DO Emergency Provider Active Start: May 30, 2025 Dr. Wilberto Suazo , DO Admit Provider Active Start: May 30, 2025 Dr. Wilberto Suazo , DO Referring Provider Active Start: May 30, 2025 Dr. Wilberto Suazo , DO Other Provider Active Start: May 30, 2025 Dr. Maddie Merchant MD Attending Provider Active Start: May 30, 2025 Dr. Maddie Merchant MD Other Provider Active St art: May 30, 2025 Dr. Michaela Joshua , DO Other Provider Active Start : May 30, 2025 Dr. Patel Irene DPM Other Provider Active St art: May 30, 2025 Dr. Russell Clement MD Other Provider Active Start : May 30, 2025 Team Status: Active Member Role/Relationship Status Dates Dr. Rishi Vasquez , DO Primary Care Provider Active Start: May 31, 2025 Dr. Heron Wilde , DO Emergency Provider Active Start: May 31, 2025 Dr. Wilberto Suazo , DO Admit Provider Active Start: May 31, 2025 Dr. Wilberto Suazo , DO Referring Provider Active Start: May 31, 2025 Dr. Wilberto Suazo , DO Other Provider Active Start: May 31, 2025 Dr. Maddie Merchant MD Attending Provider Active Start: May 31, 2025 Dr. Maddie Merchant MD Other Provider Active St art: May 31, 2025 Dr. Michaela Joshua DO Other Provider Active Start : May 31, 2025 Dr. Patel Irene DPM Other Provider Active St art: May 31, 2025 Dr. Russell Clement MD Other Provider Active Start : May 31, 2025 Team Status: Active Member Role/Relationship Status Dates Dr. Rishi Vasquez DO Primary Care Provider Active Start: June 01, 2025 Dr. Heron Wilde DO Emergency Provider Active Start: June 01, 2025 Dr. Wilberto Suazo , Admit Provider Active Start: June 01, 2025 Dr. Wilberto Suazo DO Referring Provider Active Start: June 01, 2025 Dr. Wilberto Suazo DO Other Provider Active Start: June 01, 2025 Dr. Michaela Joshua DO Other Provider Active Start : June 01, 2025 Dr. Patel Irene DPM Other Provider Active St art: June 01, 2025 Dr. Russell Clement MD Other Provider Active Start : June 01, 2025 Dr. Christos Morrow MD Attending Provider Active Start: June 01, 2025 Dr. Christos Morrow MD Other Provider Active Star t: June 01, 2025 Dr. Maddie Merchant MD Other Provider Active St art: June 01, 2025 Team Status: Inactive Member Role/Relationship Status [...] April 20, 2025 Team Status: Inactive Member Role/Relationship Status Dates Dr. Rishi Vasquez DO Primary Care Provider Active Start: April 23, 2025 End: May 18, 2025 Dr. Rishi Vasquez DO Attending Provider Active Start: April 23, 2025 End: May 18, 2025 Dr. Rishi Vasquez DO Referring Provider Active Start: April 23, 2025 End: May 18, 2025 Team Status: Inactive Member Role/Relationship Status Dates Dr. Rishi Vsaquez DO Primary Care Provider Active Start: April [...] 2025 End: May 07, 2025 Rick Bergeron NP, [employer] Attending Provider Active S tart: May 07, [...] 2025 End: May 13, 2025 Team Status: Inactive Member Role/Relationship Status [...] May 18, 2025 Dr. Michaela Joshua , Other Provider [...] May 19, 2025 Dr. Lavell Rodriges , DO Other Provider Active St art: May 19, 2025 Dr. Caren Rodriguez MD Other Provider Active Start: May 19, 2025 Dr. Kee Cast MD Other Provider Active St art: May 19, 2025 Dr. Andrew Patel , DO Other Provider Active Start: May 19, [...] Role/Relationship Status Dates Dr. Rishi Vasquez , DO Primary Care Provider Active Start: May 19, 2025 Dr. Jerri Castillo , DO Emergency Provider Active S tart: May 19, 2025 Dr. Maddie Merchant MD Admit Provider Active St art: May 19, 2025 Dr. Maddie Merchant MD Other Provider Active St art: May 19, 2025 Dr. Michaela Joshua DO Attending Provider Active S tart: May 19, 2025 Dr. Michaela Joshua , DO Other Provider Active Start : May 19, 2025 Dr. Neo Lockwood MD Other Provider Active Start: May 19, 2025 Dr. Carlos Cota MD Other Provider Active Start: May 19, 2025 Dr. Avinash Cervantes MD Other Provider Active Star t: May 19, 2025 Dr. Jacinto Tamez , DO Other Provider Active Start : May [...] Role/Relationship Status Dates Dr. Rishi Vasquez , DO Primary Care Provider Active Start: May 20, 2025 Dr. Jerri Castillo , DO Emergency Provider Active S tart: May 20, 2025 Dr. Maddie Mecrhant MD Admit Provider Active St art: May 20, 2025 Dr. Maddie Merchant MD Other Provider Active St art: May 20, 2025 Dr. Michaela Joshua , DO Attending Provider Active S tart: May 20, 2025 Dr. Michaela Joshua , DO Other Provider Active Start : May 20, 2025 Dr. Kwaku Mendoza MD Other Provider Active Start: May 20, 2025 Dr. Patel Irene DPM Other Provider Active St art: May 20, 2025 Dr. Russell Clement MD Other Provider Active Start : May 20, 2025 Team Status: Active Member Role/Relationship Status Dates Dr. Rishi Vasquez , DO Primary Care Provider Active Start: May 21, 2025 Dr. Jerri Castillo , DO Emergency Provider Active S tart: May 21, 2025 Dr. Maddie Merchant MD Admit Provider Active St art: May 21, 2025 Dr. Maddie Merchant MD Other Provider Active St art: May 21, 2025 Dr. Michaela Joshua , DO Attending Provider Active S tart: May 21, 2025 Dr. Michaela Joshua , DO Other Provider Active Start : May 21, 2025 Dr. Kwaku Mendoza MD Other Provider Active Start: May 21, 2025 Dr. Patel Irene DPM Other Provider Active St art: May 21, 2025 Dr. Russell Clement MD Other Provider Active Start : May 21, 2025 Team Status: Active Member Role/Relationship Status Dates Dr. Rishi Vasquez , DO Primary Care Provider Active Start: May 22, 2025 Dr. Heron Wilde , DO Emergency Provider Active Start: May 22, 2025 Dr. Wilberto Suazo , DO Admit Provider Active Start: May 22, 2025 Dr. Wilberto Suazo , DO Attending Provider Active Start: May 22, 2025 Dr. Wilberto Suazo , DO Other Provider Active Start: May 22, 2025 Team Status: Active Member Role/Relationship Status Dates Dr. Rishi Vasquez , DO Primary Care Provider Active Start: May 23, 2025 Dr. Heron Wilde , DO Emergency Provider Active Start: May 23, 2025 Dr. Wilberto Suazo , DO Admit Provider Active Start: May 23, 2025 Dr. Wilberto Suazo , DO Referring Provider Active Start: May 23, 2025 Dr. Wilberto Suazo , DO Other Provider Active Start: May 23, 2025 Dr. Michaela Joshua , DO Attending Provider Active S tart: May 23, 2025 Dr. Michaela Joshua , DO Other Provider Active Start : May 23, 2025 Dr. Patel Irene DPM Other Provider Active St art: May 23, 2025 Team Status: Active Member Role/Relationship Status Dates Dr. Rishi Vasquez DO Primary Care Provider Active Start: May 24, 2025 Dr. Heron Wilde DO Emergency Provider Active Start: May 24, 2025 Dr. Wilberto Suazo DO Admit Provider Active Start: May 24, 2025 Dr. Wilberto Suazo DO Referring Provider Active Start: May 24, 2025 Dr. Wilberto Suazo DO Other Provider Active Start: May 24, 2025 Dr. Michaela Joshua DO Attending Provider Active S tart: May 24, 2025 Dr. Michaela Joshua , Other Provider Active Start : May 24, 2025 Dr. Patel Irene DPM Other Provider Active St art: May 24, 2025 Dr. Russell Clement MD Other Provider Active Start : May 24, 2025 Team Status: Inactive Member Role/Relationship Status Dates Dr. Rishi Vasquez DO Primary Care Provider Active Start: May 25, 2025 End: June 01, 2025 Dr. Heron Wilde DO Emergency Provider Active Start: May 25, 2025 End: June 01, 2025 Dr. Wilberto Suazo DO Admit Provider Active Start: May 25, 2025 End: June 01, 2025 Dr. Wilberto Suazo DO Referring Provider Active Start: May 25, 2025 End: June 01, 2025 Dr. Wilberto Suazo DO Other Provider Active Start: May 25, 2025 End: June 01, 2025 Dr. Michaela Joshua DO Other Provider Active Start : May 25, 2025 End: June 01, 2025 Dr. Patel Irene DPM Other Provider Active St art: May 25, 2025 End: June 01, 2025 Dr. Russell Clement MD Other Provider Active Start : May 25, 2025 End: June 01, 2025 Dr. Christos Morrow MD Attending Provider Active Start: May 25, 2025 End: June 01, 2025 Dr. Maddie Merchant MD Other Provider Active St art: May 25, 2025 End: June 01, 2025 Team Status: Active Member Role/Relationship Status Dates Dr. Rishi Vasquez DO Primary Care Provider Active Start: May 25, 2025 Dr. Heron Wilde , DO Emergency Provider Active Start: May 25, 2025 Dr. Wilberto Suazo , DO Admit Provider Active Start: May 25, 2025 Dr. Wilberto Suazo , DO Referring Provider Active Start: May 25, 2025 Dr. Wilberto Suazo , DO Other Provider Active Start: May 25, 2025 Dr. Patel Irene DPM Other Provider Active St art: May 25, 2025 Dr. Russell Clement MD Attending Provider Active S tart: May 25, 2025 Dr. Russell Clement MD Other Provider Active Start : May 25, 2025 Dr. Maddie Merchant MD Other Provider Active St art: May 25, 2025 Dr. Michaela Joshua , DO Other Provider Active Start : May 25, 2025 Team Status: Active Member Role/Relationship Status Dates Dr. Rishi Vasquez , DO Primary Care Provider Active Start: May 26, 2025 Dr. Heron Wilde DO Emergency Provider Active Start: May 26, 2025 Dr. Wilberto Suazo , DO Admit Provider Active Start: May 26, 2025 Dr. Wilberto Suazo , DO Referring Provider Active Start: May 26, 2025 Dr. Wilberto Suazo DO Other Provider Active Start: May 26, 2025 Dr. Maddie Merchant MD Attending Provider Active Start: May 26, 2025 Dr. Maddie Merchant MD Other Provider Active St art: May 26, 2025 Dr. Michaela Joshua , DO Other Provider Active Start : May 26, 2025 Dr. Patel Irene DPM Other Provider Active St art: May 26, 2025 Dr. Russell Clement MD Other Provider Active Start : May 26, 2025 Team Status: Active Member Role/Relationship Status Dates Dr. Rishi Vasquez , DO Primary Care Provider Active Start: May 26, 2025 Dr. Heron Wilde DO Emergency Provider Active Start: May 26, 2025 Dr. Wilberto Suazo , DO Admit Provider Active Start: May 26, 2025 Dr. Wilberto Suazo DO Referring Provider Active Start: May 26, 2025 Dr. Wilberto Suazo , DO Other Provider Active Start: May 26, 2025 Dr. Patel Irene DPM Other Provider Active St art: May 26, 2025 Dr. Russell Clement MD Attending Provider Active S tart: May 26, 2025 Dr. Russell Clement MD Other Provider Active Start : May 26, 2025 Dr. Maddie Merchant MD Other Provider Active St art: May 26, 2025 Dr. Michaela Joshua , DO Other Provider Active Start : May 26, 2025 Team Status: Active Member Role/Relationship Status Dates Dr. Rishi Vasquez DO Primary Care Provider Active Start: May 27, 2025 Dr. Heron Wilde , DO Emergency Provider Active Start: May 27, 2025 Dr. Wilberto Suazo , DO Admit Provider Active Start: May 27, 2025 Dr. Wilberto Suazo , DO Referring Provider Active Start: May 27, 2025 Dr. Wilberto Suazo DO Other Provider Active Start: May 27, 2025 Dr. Maddie Merchant MD Attending Provider Active Start: May 27, 2025 Dr. Maddie Merchant MD Other Provider Active St art: May 27, 2025 Dr. Michaela Joshua , DO Other Provider Active Start : May 27, 2025 Dr. Patel Irene DPM Other Provider Active St art: May 27, 2025 Dr. Russell Clement MD Other Provider Active Start : May 27, 2025 Team Status: Active Member Role/Relationship Status Dates Dr. Rishi Vasquez DO Primary Care Provider Active Start: May 27, 2025 Dr. Heron Wilde , DO Emergency Provider Active Start: May 27, 2025 Dr. Wilberto Suazo , DO Admit Provider Active Start: May 27, 2025 Dr. Wilberto Suazo DO Referring Provider Active Start: May 27, 2025 Dr. Wilberto Suazo DO Other Provider Active Start: May 27, 2025 Dr. Maddie Merchant MD Other Provider Active St art: May 27, 2025 Dr. Michaela Joshua , Other Provider Active Start : May 27, 2025 Dr. Patel Irene DPM Other Provider Active St art: May 27, 2025 Dr. Russell Clement MD Other Provider Active Start : May 27, 2025 LILLIAM Gilmore Attending Provider Active Star t: May 27, 2025 Team Status: Active Member Role/Relationship Status Dates Dr. Rishi Vasquez DO Primary Care Provider Active Start: May 28, 2025 Dr. Heron Wilde , DO Emergency Provider Active Start: May 28, 2025 Dr. Wilberto Suazo , DO Admit Provider Active Start: May 28, 2025 Dr. Wilberto Suazo , DO Referring Provider Active Start: May 28, 2025 Dr. Wilberto Suazo , DO Other Provider Active Start: May 28, 2025 Dr. Maddie Merchant MD Attending Provider Active Start: May 28, 2025 Dr. Maddie Merchant MD Other Provider Active St art: May 28, 2025 Dr. Michaela Joshua , DO Other Provider Active Start : May 28, 2025 Dr. Patel Irene DPM Other Provider Active St art: May 28, 2025 Dr. Russell Clement MD Other Provider Active Start : May 28, 2025 Team Status: Active Member Role/Relationship Status Dates Dr. Rishi Vasquez DO Primary Care Provider Active Start: May 28, 2025 Dr. Heron Wilde DO Emergency Provider Active Start: May 28, 2025 Dr. Wilberto Suazo DO Admit Provider Active Start: May 28, 2025 Dr. Wilberto Suazo DO Referring Provider Active Start: May 28, 2025 Dr. Wilberto Suazo DO Other Provider Active Start: May 28, 2025 Dr. Maddie Merchant MD Other Provider Active St art: May 28, 2025 Dr. Michaela Joshua , DO Other Provider Active Start : May 28, 2025 Dr. Patel Irene DPM Other Provider Active St art: May 28, 2025 Dr. Russell Clement MD Other Provider Active Start : May 28, 2025 LILLIAM Gilmore Attending Provider Active Star t: May 28, 2025 Team Status: Active Member Role/Relationship Status Dates Dr. Rishi Vasquez DO Primary Care Provider Active Start: May 29, 2025 Dr. Heron Wilde , Emergency Provider Active Start: May 29, 2025 Dr. Wilberto Suazo DO Admit Provider Active Start: May 29, 2025 Dr. Wilberto Suazo DO Referring Provider Active Start: May 29, 2025 Dr. Wilberto Suazo DO Other Provider Active Start: May 29, 2025 Dr. Maddie Merchant MD Attending Provider Active Start: May 29, 2025 Dr. Maddie Merchant MD Other Provider Active St art: May 29, 2025 Dr. Michaela Joshua , Other Provider Active Start : May 29, 2025 Dr. Patel Irene DPM Other Provider Active St art: May 29, 2025 Dr. Russell Clement MD Other Provider Active Start : May 29, 2025 Team Status: Active Member Role/Relationship Status Dates Dr. Rishi Vasquez DO Primary Care Provider Active Start: May 29, 2025 Dr. Heron Wilde , DO Emergency Provider Active Start: May 29, 2025 Dr. Wilberto Suazo , DO Admit Provider Active Start: May 29, 2025 Dr. Wilberto Suazo , DO Referring Provider Active Start: May 29, 2025 Dr. Wilberto Suazo , DO Other Provider Active Start: May 29, 2025 Dr. Michaela Joshua , DO Other Provider Active Start : May 29, 2025 Dr. Patel Irene DPM Other Provider Active St art: May 29, 2025 Dr. Russell Clement MD Other Provider Active Start : May 29, 2025 Dr. Christos Morrow MD Other Provider Active Star t: May 29, 2025 Dr. Maddie Merchant MD Other Provider Active St art: May 29, 2025 LILLIAM Gilmore Attending Provider Active Star t: May 29, 2025 Team Status: Active Member Role/Relationship Status Dates Dr. Rishi Vasquez , Primary Care Provider Active Start: May 30, 2025 Dr. Heron Wilde , DO Emergency Provider Active Start: May 30, 2025 Dr. Wilberto Suazo , DO Admit Provider Active Start: May 30, 2025 Dr. Wilberto Suazo DO Referring Provider Active Start: May 30, 2025 Dr. Wilberto Suazo DO Other Provider Active Start: May 30, 2025 Dr. Maddie Merchant MD Attending Provider Active Start: May 30, 2025 Dr. Maddie Merchant MD Other Provider Active St art: May 30, 2025 Dr. Michaela Joshua , DO Other Provider Active Start : May 30, 2025 Dr. Patel Irene DPM Other Provider Active St art: May 30, 2025 Dr. Russell Clement MD Other Provider Active Start : May 30, 2025 Team Status: Active Member Role/Relationship Status Dates Dr. Rishi Vasquez DO Primary Care Provider Active Start: May 31, 2025 Dr. Heron Wilde DO Emergency Provider Active Start: May 31, 2025 Dr. Wilberto Suazo DO Admit Provider Active Start: May 31, 2025 Dr. Wilberto Suazo DO Referring Provider Active Start: May 31, 2025 Dr. Wilberto Suazo DO Other Provider Active Start: May 31, 2025 Dr. Maddie Merchant MD Attending Provider Active Start: May 31, 2025 Dr. Maddie Merchant MD Other Provider Active St art: May 31, 2025 Dr. Michaela Joshua DO Other Provider Active Start : May 31, 2025 Dr. Patel Irene DPM Other Provider Active St art: May 31, 2025 Dr. Russell Clement MD Other Provider Active Start : May 31, 2025 Team Status: Active Member Role/Relationship Status Dates Dr. Rishi Vasquez DO Primary Care Provider Active Start: June 01, 2025 Dr. Heron Wilde DO Emergency Provider Active Start: June 01, 2025 Dr. Wilberto Suazo DO Admit Provider Active Start: June 01, 2025 Dr. Wilberto Suazo DO Referring Provider Active Start: June 01, 2025 Dr. Wilberto Suazo DO Other Provider Active Start: June 01, 2025 Dr. Michaela Joshua DO Other Provider Active Start : June 01, 2025 Dr. Paetl Irene DPM Other Provider Active St art: June 01, 2025 Dr. Russell Clement MD Other Provider Active Start : June 01, 2025 Dr. Christos Morrow MD Attending Provider Active Start: June 01, 2025 Dr. Christos Morrow MD Other Provider Active Star t: June 01, 2025 Dr. Maddie Merchant MD Other Provider Active St art: June 01, 2025 Team Status: Active Member Role/Relationship Status Dates Dr. Rishi Vasquez DO Primary Care Provider Active Start: June 01, 2025 Dr. Phong Solomon MD Admit Provider Active Star t: June 01, 2025 Dr. Phong Solomon MD Attending Provider Active Start: June 01, 2025 Dr. Patel Irene DPM Other Provider Active St art: June 01, 2025 Dr. Kwaku Mendoza MD Other Provider Active Start: June 01, 2025 Team Status: Active Member Role/Relationship Status Dates Dr. Rishi Vasquez DO Primary Care Provider Active Start: June 04, 2025 Dr. Phong Solomon MD Admit Provider Active Star t: June 04, 2025 Dr. Phong Solomon MD Other Provider Active Star t: June 04, 2025 Dr. Patel Irene DPM Other Provider Active St art: June 04, 2025 Dr. Kwaku Mendoza MD Other Provider Active Start: June 04, 2025 Dr. Ortega Yanez , Attending Provider Active Start: June 04, 2025 Team Status: Inactive Member Role/Relationship Status Dates Dr. Rishi Vasquez DO Primary Care Provider Active Start: June 05, 2025 End: June 05, 2025 Dr. Rishi Vasquez DO Referring Provider Active Start: June 05, 2025 End: June 05, 2025 Dr. Ortega Yanez DO Attending Provider Active Start: June 05, 2025 End: June 05, 2025 Team Status: Active Member Role/Relationship Status Dates Dr. Rishi Vasquez DO Primary Care Provider Active Start: June 05, 2025 Dr. Rishi Vasquez DO Referring Provider Active Start: June 05, 2025 Dr. Ortega Yanez DO Attending Provider Active Start: June 05, 2025 Dr. Ortega Yanez DO Other Provider Active St art: June 05, 2025 Team Status: Inactive Member Role/Relationship Status Dates Dr. Rishi Vasquez DO Primary Care Provider Active Start: June 09, 2025 End: June 09, 2025 Dr. Rishi Vasquez DO Referring Provider Active Start: June 09, 2025 End: June 09, 2025 LILLIAM Gilmore Attending Provider Active Star t: June 09, 2025 End: June 09, 2025 Team Status: Active Member Role/Relationship Status Dates Dr. Rishi Vasquez DO Primary Care Provider Active Start: May 23, 2025 Dr. Heron Wilde , DO Emergency Provider Active Start: May 23, 2025 Dr. Wilberto Suazo , Admit Provider Active Start: May 23, 2025 Dr. Wilberto Suazo , DO Other Provider Active Start: May 23, 2025 Dr. Michaela Joshua , DO Attending Provider Active S tart: May 23, 2025 Dr. Michaela Joshua , DO Other Provider Active Start : May 23, 2025 Dr. Patel Irene , DPM Other Provider Active St art: May 23, 2025 Team Status: Active Member Role/Relationship Status Dates Dr. Rishi Vasquez , DO Primary Care Provider Active Start: May 24, 2025 Dr. Heron Wilde , DO Emergency Provider Active Start: May 24, 2025 Dr. Wilberto Suazo DO Admit Provider Active Start: May 24, 2025 Dr. Wilberto Suazo , DO Other Provider Active Start: May 24, 2025 Dr. Michaela Joshua , DO Attending Provider Active S tart: May 24, 2025 Dr. Michaela Joshua , DO Other Provider Active Start : May 24, 2025 Dr. Patel Irene DPM Other Provider Active St art: May 24, 2025 Dr. Russell Clement MD Other Provider Active Start : May 24, 2025 Team Status: Active Member Role/Relationship Status Dates Dr. Rishi Vasquez DO Primary Care Provider Active Start: May 26, 2025 Dr. Heron Wilde , DO Emergency Provider Active Start: May 26, 2025 Dr. Wilberto Suazo , DO Admit Provider Active Start: May 26, 2025 Dr. Wilberto Suazo , DO Other Provider Active Start: May 26, 2025 Dr. Maddie Merchant MD Attending Provider Active Start: May 26, 2025 Dr. Maddie Merchant MD Other Provider Active St art: May 26, 2025 Dr. Michaela Joshua , DO Other Provider Active Start : May 26, 2025 Dr. Patel Irene DPM Other Provider Active St art: May 26, 2025 Dr. Russell Clement MD Other Provider Active Start : May 26, 2025 Team Status: Active Member Role/Relationship Status Dates Dr. Rishi Vasquez DO Primary Care Provider Active Start: May 27, 2025 Dr. Heron Wilde DO Emergency Provider Active Start: May 27, 2025 Dr. Wilberto Suazo , DO Admit Provider Active Start: May 27, 2025 Dr. Wilberto Suazo , DO Other Provider Active Start: May 27, 2025 Dr. Maddie Merchant MD Attending Provider Active Start: May 27, 2025 Dr. Maddie Merchant MD Other Provider Active St art: May 27, 2025 Dr. Michaela Joshua , DO Other Provider Active Start : May 27, 2025 Dr. Patel Irene DPM Other Provider Active St art: May 27, 2025 Dr. Russell Clement MD Other Provider Active Start : May 27, 2025 Team Status: Active Member Role/Relationship Status Dates Dr. Rishi Vasquez , DO Primary Care Provider Active Start: May 28, 2025 Dr. Heron Wilde , DO Emergency Provider Active Start: May 28, 2025 Dr. Wilberto Suazo , DO Admit Provider Active Start: May 28, 2025 Dr. Wilberto Suazo , DO Other Provider Active Start: May 28, 2025 Dr. Maddie Merchant MD Attending Provider Active Start: May 28, 2025 Dr. Maddie Merchant MD Other Provider Active St art: May 28, 2025 Dr. Michaela Joshua , DO Other Provider Active Start : May 28, 2025 Dr. Patel Irene DPM Other Provider Active St art: May 28, 2025 Dr. Russell Clement MD Other Provider Active Start : May 28, 2025 Team Status: Active Member Role/Relationship Status Dates Dr. Rishi Vasquez , Primary Care Provider Active Start: May 29, 2025 Dr. Heron Wilde , DO Emergency Provider Active Start: May 29, 2025 Dr. Wilberto Suazo , DO Admit Provider Active Start: May 29, 2025 Dr. Wilberto Suazo , DO Other Provider Active Start: May 29, 2025 Dr. Maddie Merchant MD Attending Provider Active Start: May 29, 2025 Dr. Maddie Merchant MD Other Provider Active St art: May 29, 2025 Dr. Michaela Joshua , DO Other Provider Active Start : May 29, 2025 Dr. Patel Irene DPM Other Provider Active St art: May 29, 2025 Dr. Russell Clement MD Other Provider Active Start : May 29, 2025 Team Status: Active Member Role/Relationship Status Dates Dr. Rishi Vasquez DO Primary Care Provider Active Start: May 30, 2025 Dr. Heron Wilde , DO Emergency Provider Active Start: May 30, 2025 Dr. Wilberto Suazo , DO Admit Provider Active Start: May 30, 2025 Dr. Wilberto Suazo DO Other Provider Active Start: May 30, 2025 Dr. Maddie Merchant MD Attending Provider Active Start: May 30, 2025 Dr. Maddie Merchant MD Other Provider Active St art: May 30, 2025 Dr. Michaela Tres , DO Other Provider Active Start : May 30, 2025 Dr. Patel Irene DPM Other Provider Active St art: May 30, 2025 Dr. Russell Clement MD Other Provider Active Start : May 30, 2025 Team Status: Inactive Member Role/Relationship Status Dates Dr. Rishi Vasquez DO Primary Care Provider Active Start: June 11, 2025 End: June 11, 2025 Dr. Shahnaz Bishop DO Emergency Provider Active Start: June 11, 2025 End: June 11, 2025 Team Status: Active Member Role/Relationship [...] May 19, 2025 Dr. Lavell Rodriges , DO Other Provider Active St art: May [...] Role/Relationship Status Dates Dr. Rishi Vasquez , DO Primary Care Provider Active Start: May [...] Start : May 19, 2025 Dr. Neo Lcokwood MD Other Provider Active Start: May 19, 2025 Dr. Carlos Cota MD Other Provider Active Start: May 19, 2025 Dr. Avinash Cervantes MD Other Provider Active Star t: May 19, 2025 Dr. Jacinto Tamez , Other Provider [...] St art: May 19, 2025 Dr. Russell Clmeent MD Other Provider Active Start : May 19, 2025 Dr. Kwaku Mendoza MD Other Provider Active Start: May 19, 2025 Team Status: Active Member Role/Relationship Status Dates Dr. Rishi Vasquez , DO Primary Care Provider Active Start: May 20, 2025 Dr. Jerri Castillo , Emergency Provider Active S tart: May 20, [...] Start: May 21, 2025 Dr. Jerri Castillo , DO Emergency Provider Active S tart: May 21, 2025 Dr. Maddie Merchant MD Admit Provider Active St art: May 21, 2025 Dr. Maddie Merchant MD Other Provider Active St art: May 21, 2025 Dr. Michaela Joshua , DO Attending Provider Active S tart: May 21, 2025 Dr. Michaela Joshua , DO Other Provider Active Start : May 21, 2025 Dr. Kwaku Mendoza MD Other Provider Active Start: May 21, 2025 Dr. Patel Irene DPM Other Provider Active St art: May 21, 2025 Dr. Russell Clement MD Other Provider Active Start : May 21, 2025 Team Status: Active Member Role/Relationship Status Dates Dr. Rishi Vasquez DO Primary Care Provider Active Start: May 22, 2025 Dr. Heron Wilde , DO Emergency Provider Active Start: May 22, 2025 Dr. Wilberto Suazo , DO Admit Provider Active Start: May 22, 2025 Dr. Wilberto Suazo , DO Attending Provider Active Start: May 22, 2025 Dr. Wilberto Suazo , DO Other Provider Active Start: May 22, 2025 Team Status: Active Member Role/Relationship Status Dates Dr. Rishi Vasquez DO Primary Care Provider Active Start: May 23, 2025 Dr. Heron Wilde , DO Emergency Provider Active Start: May 23, 2025 Dr. Wilberto Suazo , DO Admit Provider Active Start: May 23, 2025 Dr. Wilberto Suazo , DO Other Provider Active Start: May 23, 2025 Dr. Michaela Joshua , DO Attending Provider Active S tart: May 23, 2025 Dr. Michaela Joshua , DO Other Provider Active Start : May 23, 2025 Dr. Patel Irene DPM Other Provider Active St art: May 23, 2025 Team Status: Active Member Role/Relationship Status Dates Dr. Rishi Vasquez , DO Primary Care Provider Active Start: May 24, 2025 Dr. Heron Wilde , DO Emergency Provider Active Start: May 24, 2025 Dr. Wilberto Suazo , DO Admit Provider Active Start: May 24, 2025 Dr. Wilberto Suazo , DO Other Provider Active Start: May 24, 2025 Dr. Michaela Joshua DO Attending Provider Active S tart: May 24, 2025 Dr. Michaela Joshua , DO Other Provider Active Start : May 24, 2025 Dr. Patel Irene DPM Other Provider Active St art: May 24, 2025 Dr. Russell Clement MD Other Provider Active Start : May 24, 2025 Team Status: Inactive Member Role/Relationship Status Dates Dr. Rishi Vasquez , DO Primary Care Provider Active Start: May 25, 2025 End: June 01, 2025 Dr. Heron Wilde , DO Emergency Provider Active Start: May 25, 2025 End: June 01, 2025 Dr. Wilberto Suazo , DO Admit Provider Active Start: May 25, 2025 End: June 01, 2025 Dr. Wilberto Suazo DO Referring Provider Active Start: May 25, 2025 End: June 01, 2025 Dr. Wilberto Suazo DO Other Provider Active Start: May 25, 2025 End: June 01, 2025 Dr. Michaela Joshua , DO Other Provider Active Start : May 25, 2025 End: June 01, 2025 Dr. Patel Irene DPM Other Provider Active St art: May 25, 2025 End: June 01, 2025 Dr. Russell Clement MD Other Provider Active Start : May 25, 2025 End: June 01, 2025 Dr. Christos Morrow MD Attending Provider Active Start: May 25, 2025 End: June 01, 2025 Dr. Maddie Merchant MD Other Provider Active St art: May 25, 2025 End: June 01, 2025 Team Status: Active Member Role/Relationship Status Dates Dr. Rishi Vasquez DO Primary Care Provider Active Start: May 25, 2025 Dr. Heron Wilde DO Emergency Provider Active Start: May 25, 2025 Dr. Wilberto Suazo DO Admit Provider Active Start: May 25, 2025 Dr. Wilberto Suazo DO Referring Provider Active Start: May 25, 2025 Dr. Wilberto Suazo DO Other Provider Active Start: May 25, 2025 Dr. Patel Irene DPM Other Provider Active St art: May 25, 2025 Dr. Russell Clement MD Attending Provider Active S tart: May 25, 2025 Dr. Russell Clement MD Other Provider Active Start : May 25, 2025 Dr. Maddie Merchant MD Other Provider Active St art: May 25, 2025 Dr. Michaela Joshua , DO Other Provider Active Start : May 25, 2025 Team Status: Active Member Role/Relationship Status Dates Dr. Rishi Vasquez DO Primary Care Provider Active Start: May 26, 2025 Dr. Heron Wilde DO Emergency Provider Active Start: May 26, 2025 Dr. Wilberto Suazo , DO Admit Provider Active Start: May 26, 2025 Dr. Wilberto Suazo DO Other Provider Active Start: May 26, 2025 Dr. Maddie Merchant MD Attending Provider Active Start: May 26, 2025 Dr. Maddie Merchant MD Other Provider Active St art: May 26, 2025 Dr. Michaela Joshua , DO Other Provider Active Start : May 26, 2025 Dr. Patel Irene DPM Other Provider Active St art: May 26, 2025 Dr. Russell Clement MD Other Provider Active Start : May 26, 2025 Team Status: Active Member Role/Relationship Status Dates Dr. Rishi Vasquez DO Primary Care Provider Active Start: May 26, 2025 Dr. Heron Wilde DO Emergency Provider Active Start: May 26, 2025 Dr. Wilberto Suazo DO Admit Provider Active Start: May 26, 2025 Dr. Wilberto Suazo DO Referring Provider Active Start: May 26, 2025 Dr. Wilberto Suazo DO Other Provider Active Start: May 26, 2025 Dr. Patel Irene DPM Other Provider Active St art: May 26, 2025 Dr. Russell Clement MD Attending Provider Active S tart: May 26, 2025 Dr. Russell Clement MD Other Provider Active Start : May 26, 2025 Dr. Maddie Merchant MD Other Provider Active St art: May 26, 2025 Dr. Michaela Joshua , Other Provider Active Start : May 26, 2025 Team Status: Active Member Role/Relationship Status Dates Dr. Rishi Vasquez DO Primary Care Provider Active Start: May 27, 2025 Dr. Heron Wilde DO Emergency Provider Active Start: May 27, 2025 Dr. Wilberto uSazo , DO Admit Provider Active Start: May 27, 2025 Dr. Wilberto Suazo , DO Other Provider Active Start: May 27, 2025 Dr. Maddie Merchant MD Attending Provider Active Start: May 27, 2025 Dr. Maddie Merchant MD Other Provider Active St art: May 27, 2025 Dr. Michaela Joshua , DO Other Provider Active Start : May 27, 2025 Dr. Patel Irene DPM Other Provider Active St art: May 27, 2025 Dr. Russell Clement MD Other Provider Active Start : May 27, 2025 Team Status: Active Member Role/Relationship Status Dates Dr. Rishi Vasquez DO Primary Care Provider Active Start: May 27, 2025 Dr. Heron Wilde DO Emergency Provider Active Start: May 27, 2025 Dr. Wilberto Suazo , DO Admit Provider Active Start: May 27, 2025 Dr. Wilberto Suazo DO Referring Provider Active Start: May 27, 2025 Dr. Wilberto Suazo , DO Other Provider Active Start: May 27, 2025 Dr. Maddie Merchant MD Other Provider Active St art: May 27, 2025 Dr. Michaela Joshua , DO Other Provider Active Start : May 27, 2025 Dr. Patel Irene DPM Other Provider Active St art: May 27, 2025 Dr. Russell Clement MD Other Provider Active Start : May 27, 2025 LILLIAM Gilmore Attending Provider Active Star t: May 27, 2025 Team Status: Active Member Role/Relationship Status Dates Dr. Rishi Vasquez DO Primary Care Provider Active Start: May 28, 2025 Dr. Heron Wilde , DO Emergency Provider Active Start: May 28, 2025 Dr. Wilberto Suazo , DO Admit Provider Active Start: May 28, 2025 Dr. Wilberto Suazo DO Other Provider Active Start: May 28, 2025 Dr. Maddie Merchant MD Attending Provider Active Start: May 28, 2025 Dr. Maddie Merchant MD Other Provider Active St art: May 28, 2025 Dr. Michaela Joshua , DO Other Provider Active Start : May 28, 2025 Dr. Patel Irene DPM Other Provider Active St art: May 28, 2025 Dr. Russell Clement MD Other Provider Active Start : May 28, 2025 Team Status: Active Member Role/Relationship Status Dates Dr. Rishi Vasquez DO Primary Care Provider Active Start: May 28, 2025 Dr. Heron Wilde , DO Emergency Provider Active Start: May 28, 2025 Dr. Wilberto Suazo , DO Admit Provider Active Start: May 28, 2025 Dr. Wilberto Suazo , DO Referring Provider Active Start: May 28, 2025 Dr. Wilberto Suazo , DO Other Provider Active Start: May 28, 2025 Dr. Maddie Merchant MD Other Provider Active St art: May 28, 2025 Dr. Michaela Joshua , DO Other Provider Active Start : May 28, 2025 Dr. Patel Irene DPM Other Provider Active St art: May 28, 2025 Dr. Russell Clement MD Other Provider Active Start : May 28, 2025 LILLIAM Gilmore Attending Provider Active Star t: May 28, 2025 Team Status: Active Member Role/Relationship Status Dates Dr. Rishi Vasquez DO Primary Care Provider Active Start: May 29, 2025 Dr. Heron Wilde DO Emergency Provider Active Start: May 29, 2025 Dr. Wilberto Suazo , DO Admit Provider Active Start: May 29, 2025 Dr. Wilberto Suazo DO Other Provider Active Start: May 29, 2025 Dr. Maddie Merchant MD Attending Provider Active Start: May 29, 2025 Dr. Maddie Merchant MD Other Provider Active St art: May 29, 2025 Dr. Michaela Joshua , Other Provider Active Start : May 29, 2025 Dr. Patel Irene DPM Other Provider Active St art: May 29, 2025 Dr. Russell Clement MD Other Provider Active Start : May 29, 2025 Team Status: Active Member Role/Relationship Status Dates Dr. Rishi Vasquez DO Primary Care Provider Active Start: May 29, 2025 Dr. Heron Wilde DO Emergency Provider Active Start: May 29, 2025 Dr. Wilberto Suazo DO Admit Provider Active Start: May 29, 2025 Dr. Wilberto Suazo DO Referring Provider Active Start: May 29, 2025 Dr. Wilberto Suazo , DO Other Provider Active Start: May 29, 2025 Dr. Michaela Joshua DO Other Provider Active Start : May 29, 2025 Dr. Patel Irene DPM Other Provider Active St art: May 29, 2025 Dr. Russell Clement MD Other Provider Active Start : May 29, 2025 Dr. Christos Morrow MD Other Provider Active Star t: May 29, 2025 Dr. Maddie Merchant MD Other Provider Active St art: May 29, 2025 LILLIAM Gilmore Attending Provider Active Star t: May 29, 2025 Team Status: Active Member Role/Relationship Status Dates Dr. Rishi Vasquez DO Primary Care Provider Active Start: May 30, 2025 Dr. Heron Wilde DO Emergency Provider Active Start: May 30, 2025 Dr. Wilberto Suazo DO Admit Provider Active Start: May 30, 2025 Dr. Wilberto Suazo DO Other Provider Active Start: May 30, 2025 Dr. Maddie Merchant MD Attending Provider Active Start: May 30, 2025 Dr. Maddie Merchant MD Other Provider Active St art: May 30, 2025 Dr. Michaela Joshua DO Other Provider Active Start : May 30, 2025 Dr. Patel Irene DPM Other Provider Active St art: May 30, 2025 Dr. Russell Clement MD Other Provider Active Start : May 30, 2025 Team Status: Active Member Role/Relationship Status Dates Dr. Rishi Vasquez DO Primary Care Provider Active Start: May 31, 2025 Dr. Heron Wilde DO Emergency Provider Active Start: May 31, 2025 Dr. Wilberto Suazo DO Admit Provider Active Start: May 31, 2025 Dr. Wilberto Suazo DO Referring Provider Active Start: May 31, 2025 Dr. Wilberto Suazo DO Other Provider Active Start: May 31, 2025 Dr. Maddie Merchant MD Attending Provider Active Start: May 31, 2025 Dr. Maddie Merchant MD Other Provider Active St art: May 31, 2025 Dr. Michaela Joshua DO Other Provider Active Start : May 31, 2025 Dr. Patel Irene DPM Other Provider Active St art: May 31, 2025 Dr. Russell Clement MD Other Provider Active Start : May 31, 2025 Team Status: Active Member Role/Relationship Status Dates Dr. Rishi Vasquez DO Primary Care Provider Active Start: June 01, 2025 Dr. Heron Wilde DO Emergency Provider Active Start: June 01, 2025 Dr. Wilberto Suazo , Admit Provider Active Start: June 01, 2025 Dr. Wilberto Suazo , Referring Provider Active Start: June 01, 2025 Dr. Wilberto Suazo , DO Other Provider Active Start: June 01, 2025 Dr. Michaela Joshua DO Other Provider Active Start : June 01, 2025 Dr. Patel Irene DPM Other Provider Active St art: June 01, 2025 Dr. Russell Clement MD Other Provider Active Start : June 01, 2025 Dr. Christos Morrow MD Attending Provider Active Start: June 01, 2025 Dr. Christos Morrow MD Other Provider Active Star t: June 01, 2025 Dr. Maddie Merchant MD Other Provider Active St art: June 01, 2025 Team Status: Active Member Role/Relationship Status Dates Dr. Rishi Vasquez DO Primary Care Provider Active Start: June 01, 2025 Dr. Phong Solomon MD Admit Provider Active Star t: June 01, 2025 Dr. Phong Solomon MD Attending Provider Active Start: June 01, 2025 Dr. Patel Irene DPM Other Provider Active St art: June 01, 2025 Dr. Kwaku Mendoza MD Other Provider Active Start: June 01, 2025 Team Status: Active Member Role/Relationship Status Dates Dr. Rishi Vasquez DO Primary Care Provider Active Start: June 04, 2025 Dr. Phong Solomon MD Admit Provider Active Star t: June 04, 2025 Dr. Phong Solomon MD Other Provider Active Star t: June 04, 2025 Dr. Patel Irene DPM Other Provider Active St art: June 04, 2025 Dr. Kwaku Mendoza MD Other Provider Active Start: June 04, 2025 Dr. Ortega Yanez DO Attending Provider Active Start: June 04, 2025 Team Status: Inactive Member Role/Relationship Status Dates Dr. Rishi Vasquez DO Primary Care Provider Active Start: June 05, 2025 End: June 05, 2025 Dr. Rishi Vasquez DO Referring Provider Active Start: June 05, 2025 End: June 05, 2025 Dr. Ortega Yanez DO Attending Provider Active Start: June 05, 2025 End: June 05, 2025 Team Status: Active Member Role/Relationship Status Dates Dr. Rishi Vasquez DO Primary Care Provider Active Start: June 05, 2025 Dr. Rishi Vasquez DO Referring Provider Active Start: June 05, 2025 Dr. Ortega Yanez DO Attending Provider Active Start: June 05, 2025 Dr. Ortega Yanez DO Other Provider Active St art: June 05, 2025 Team Status: Inactive Member Role/Relationship Status Dates Dr. Rishi Vasquez DO Primary Care Provider Active Start: June 09, 2025 End: June 09, 2025 Dr. Rishi Vasquez DO Referring Provider Active Start: June 09, 2025 End: June 09, 2025 LILLIAM Gilmore Attending Provider Active Star t: June 09, 2025 End: June 09, 2025 Team Status: Inactive Member Role/Relationship Status Dates Dr. Rishi Vasquez DO Primary Care Provider Active Start: June 11, 2025 End: June 11, 2025 Dr. Shahnaz Bishop DO Emergency Provider Active Start: June 11, 2025 End: June 11, 2025 Team Status: Inactive Member Role/Relationship Status Dates Dr. Rishi Vasquez DO Primary Care Provider Active Start: June 12, 2025 End: June 12, 2025 Dr. Phong Solomon MD Attending Provider Active Start: June 12, 2025 End: June 12, 2025 Dr. Phong Solomon MD Referring Provider Active Start: June 12, 2025 End: June 12, 2025 Team Status: Active Member Role/Relationship Status Dates Dr. Rishi Vasquez DO Primary Care Provider Active Start: June 16, 2025 Dr. Rishi Vasquez DO Attending Provider Active Start: June 16, 2025 Dr. Rishi Vasquez DO Referring Provider Active Start: June 16, 2025 Car Pre Cooler Relationship Specialty Start Date End Date Rishi Vasquez DO [address] [place] [address] PCP - General Family Medicine 03/26/13 Yani Watts, SORT OPERATIONS SUPERVISOR.[employer] HITCH DRIVER [address] [place], [place] [id number] Counts Include [facility] 10/26/24 Chandra Ldtequila Reis, SORT OPERATIONS SUPERVISOR.[employer] HORSE HITCH DRIVER [address] [place] [address] Counts Include [facility] 05/04/25 Team Status: Inactive Member Role/Relationship Status Dates [...] Active St art: March 08, 2025 Dr. Broderikc Dempsey MD Attending Provider Active Start: March [...] Role/Relationship Status Dates Dr. Rishi Vasquez , DO Primary Care Provider Active Start: March 10, 2025 Dr. Esteban Becker , DO Emergency Provider Active Start : [...] , Primary Care Provider Active Start: March 11, 2025 Dr. Esteban Becker , DO Emergency Provider Active Start : [...] Status: Active Member Role/Relationship Status Dates Dr. iRshi Vasquez DO Primary Care Provider Active Start: [...] Active Start: A pril 2024 Team Status: Inactive Member Role/Relationship Status [...] April 03, 2025 End: April 03, 2025 LLILIAM Gilmore Attending Provider Active Star t: April [...] April 20, 2025 Team Status: Inactive Member Role/Relationship Status Dates Dr. Rishi Vasquez DO Primary Care Provider Active Start: April 23, 2025 End: May 18, 2025 Dr. Rishi Vasquez DO Attending Provider Active Start: April 23, 2025 End: May 18, 2025 Dr. Rishi Vasquez DO Referring Provider Active Start: April 23, 2025 End: May 18, 2025 Team Status: Inactive Member [...] 2025 End: May 07, 2025 Rick Bergeron NP, PORTABLE ROUTER OPERATOR-C Attending Provider Active S tart: May 07, [...] 2025 End: May 13, 2025 Team Status: Inactive Member Role/Relationship Status [...] Active Start : May 18, 2025 Dr. eNo Lockwood MD Other Provider Active Start: May [...] May 19, 2025 Dr. Lavell Rodriges , DO Other Provider Active St art: May [...] May 19, 2025 Dr. Jacinto Tamez , Other Provider [...] Active Star t: May 19, 2025 Dr. Washingotn Flores MD Other Provider Active Sta rt: May 19, 2025 Dr. Patel Irene DPM Other Provider Active St art: May 19, 2025 Dr. Russell Clement MD Other Provider Active Start : May 19, 2025 Dr. Kwaku Mendoza MD Other Provider Active Start: May 19, 2025 Team Status: Active Member Role/Relationship Status Dates Dr. Rishi Vasquez , DO Primary Care Provider Active Start: May 20, 2025 Dr. Jerri Castillo , DO Emergency Provider Active S tart: May 20, 2025 Dr. Maddie Merchant MD Admit Provider Active St art: May 20, 2025 Dr. Maddie Merchant MD Other Provider Active St art: May 20, 2025 Dr. Michaela Joshua , DO Attending Provider Active S tart: May 20, 2025 Dr. Michaela Joshua , DO Other Provider Active Start : May 20, 2025 Dr. Kwaku Mendoza MD Other Provider Active Start: May 20, 2025 Dr. Patel Irene DPM Other Provider Active St art: May 20, 2025 Dr. Russell Clement MD Other Provider Active Start : May 20, 2025 Team Status: Active Member Role/Relationship Status Dates Dr. Rishi Vasquez , DO Primary Care Provider Active Start: May 21, 2025 Dr. Jerri Castillo , DO Emergency Provider Active S tart: May 21, 2025 Dr. Maddie Merchant MD Admit Provider Active St art: May 21, 2025 Dr. Maddie Merchant MD Other Provider Active St art: May 21, 2025 Dr. Michaela Joshua , DO Attending Provider Active S tart: May 21, 2025 Dr. Michaela Joshua , DO Other Provider Active Start : May 21, 2025 Dr. Kwaku Mendoza MD Other Provider Active Start: May 21, 2025 Dr. Patel Irene DPM Other Provider Active St art: May 21, 2025 Dr. Russell Clement MD Other Provider Active Start : May 21, 2025 Team Status: Active Member Role/Relationship Status Dates Dr. Rishi Vasquez , DO Primary Care Provider Active Start: May 22, 2025 Dr. Heron Wilde , DO Emergency Provider Active Start: May 22, 2025 Dr. Wilberto Suazo , DO Admit Provider Active Start: May 22, 2025 Dr. Wilberto Suazo , DO Attending Provider Active Start: May 22, 2025 Dr. Wilberto Suazo , DO Other Provider Active Start: May 22, 2025 Team Status: Active Member Role/Relationship Status Dates Dr. Rishi Vasquez , DO Primary Care Provider Active Start: May 23, 2025 Dr. Heron Wilde , DO Emergency Provider Active Start: May 23, 2025 Dr. Wilberto Suazo , DO Admit Provider Active Start: May 23, 2025 Dr. Wilberto Suazo , DO Other Provider Active Start: May 23, 2025 Dr. Michaela Joshua DO Attending Provider Active S tart: May 23, 2025 Dr. Michaela Joshua , DO Other Provider Active Start : May 23, 2025 Dr. Patel Irene DPM Other Provider Active St art: May 23, 2025 Team Status: Active Member Role/Relationship Status Dates Dr. Rishi Vasquez DO Primary Care Provider Active Start: May 24, 2025 Dr. Heron Wilde DO Emergency Provider Active Start: May 24, 2025 Dr. Wilberto Suazo DO Admit Provider Active Start: May 24, 2025 Dr. Wilberto Suazo DO Other Provider Active Start: May 24, 2025 Dr. Michaela Joshua DO Attending Provider Active S tart: May 24, 2025 Dr. Michaela Joshua DO Other Provider Active Start : May 24, 2025 Dr. Patel Irene DPM Other Provider Active St art: May 24, 2025 Dr. Russell Clement MD Other Provider Active Start : May 24, 2025 Team Status: Inactive Member Role/Relationship Status Dates Dr. Rishi Vasquez DO Primary Care Provider Active Start: May 25, 2025 End: June 01, 2025 Dr. Heron Wilde DO Emergency Provider Active Start: May 25, 2025 End: June 01, 2025 Dr. Wilberto Suazo DO Admit Provider Active Start: May 25, 2025 End: June 01, 2025 Dr. Wilberto Suazo DO Referring Provider Active Start: May 25, 2025 End: June 01, 2025 Dr. Wilberto Suazo DO Other Provider Active Start: May 25, 2025 End: June 01, 2025 Dr. Michaela Joshua DO Other Provider Active Start : May 25, 2025 End: June 01, 2025 Dr. Patel Irene DPM Other Provider Active St art: May 25, 2025 End: June 01, 2025 Dr. Russell Clement MD Other Provider Active Start : May 25, 2025 End: June 01, 2025 Dr. Christos Morrow MD Attending Provider Active Start: May 25, 2025 End: June 01, 2025 Dr. Maddie Merchant MD Other Provider Active St art: May 25, 2025 End: June 01, 2025 Team Status: Active Member Role/Relationship Status Dates Dr. Rishi Vasquez DO Primary Care Provider Active Start: May 25, 2025 Dr. Heron Wilde , DO Emergency Provider Active Start: May 25, 2025 Dr. Wilberto Suazo , DO Admit Provider Active Start: May 25, 2025 Dr. Wilberto Suazo DO Referring Provider Active Start: May 25, 2025 Dr. Wilberto Suazo DO Other Provider Active Start: May 25, 2025 Dr. Patel Irene DPM Other Provider Active St art: May 25, 2025 Dr. Russell lCement MD Attending Provider Active S tart: May 25, 2025 Dr. Russell Clement MD Other Provider Active Start : May 25, 2025 Dr. Maddie Merchant MD Other Provider Active St art: May 25, 2025 Dr. Michaela Joshua , DO Other Provider Active Start : May 25, 2025 Team Status: Active Member Role/Relationship Status Dates Dr. Rishi Vasquez DO Primary Care Provider Active Start: May 26, 2025 Dr. Heron Wilde DO Emergency Provider Active Start: May 26, 2025 Dr. Wilberto Suazo , DO Admit Provider Active Start: May 26, 2025 Dr. Wilberto Suazo DO Other Provider Active Start: May 26, 2025 Dr. Maddie Merchant MD Attending Provider Active Start: May 26, 2025 Dr. Maddie Merchant MD Other Provider Active St art: May 26, 2025 Dr. Michaela Joshua DO Other Provider Active Start : May 26, 2025 Dr. Patel Irene DPM Other Provider Active St art: May 26, 2025 Dr. Rsusell Clement MD Other Provider Active Start : May 26, 2025 Team Status: Active Member Role/Relationship Status Dates Dr. Rishi Vasquez DO Primary Care Provider Active Start: May 26, 2025 Dr. Heron Wilde DO Emergency Provider Active Start: May 26, 2025 Dr. Wilberto Suazo DO Admit Provider Active Start: May 26, 2025 Dr. Wilberto Suazo DO Referring Provider Active Start: May 26, 2025 Dr. Wilberto Suazo DO Other Provider Active Start: May 26, 2025 Dr. Patel Irene DPM Other Provider Active St art: May 26, 2025 Dr. Russell Clement MD Attending Provider Active S tart: May 26, 2025 Dr. Russell Clement MD Other Provider Active Start : May 26, 2025 Dr. Maddie Merchant MD Other Provider Active St art: May 26, 2025 Dr. Michaela Joshua , DO Other Provider Active Start : May 26, 2025 Team Status: Active Member Role/Relationship Status Dates Dr. Rishi Vasquez DO Primary Care Provider Active Start: May 27, 2025 Dr. Heron Wilde , DO Emergency Provider Active Start: May 27, 2025 Dr. Wilberto Suazo , DO Admit Provider Active Start: May 27, 2025 Dr. Wilberto Suazo , DO Other Provider Active Start: May 27, 2025 Dr. Maddie Merchant MD Attending Provider Active Start: May 27, 2025 Dr. Maddie Merchant MD Other Provider Active St art: May 27, 2025 Dr. Michaela Joshua , DO Other Provider Active Start : May 27, 2025 Dr. Patel Irene DPM Other Provider Active St art: May 27, 2025 Dr. Russell Clement MD Other Provider Active Start : May 27, 2025 Team Status: Active Member Role/Relationship Status Dates Dr. Rishi Vasquez DO Primary Care Provider Active Start: May 27, 2025 Dr. Heron Wilde , DO Emergency Provider Active Start: May 27, 2025 Dr. Wilberto Suazo DO Admit Provider Active Start: May 27, 2025 Dr. Wilberto Suazo DO Referring Provider Active Start: May 27, 2025 Dr. Wilberto Suazo DO Other Provider Active Start: May 27, 2025 Dr. Maddie Merchant MD Other Provider Active St art: May 27, 2025 Dr. Michaela Joshua , DO Other Provider Active Start : May 27, 2025 Dr. Patel Irene DPM Other Provider Active St art: May 27, 2025 Dr. Russell Clement MD Other Provider Active Start : May 27, 2025 LILLIAM Gilmore Attending Provider Active Star t: May 27, 2025 Team Status: Active Member Role/Relationship Status Dates Dr. Rishi Vasquez DO Primary Care Provider Active Start: May 28, 2025 Dr. Heron Wilde , DO Emergency Provider Active Start: May 28, 2025 Dr. Wilberto Suazo , DO Admit Provider Active Start: May 28, 2025 Dr. Wilberto Suazo DO Other Provider Active Start: May 28, 2025 Dr. Maddie Merchant MD Attending Provider Active Start: May 28, 2025 Dr. Maddie Merchant MD Other Provider Active St art: May 28, 2025 Dr. Michaela Joshua , DO Other Provider Active Start : May 28, 2025 Dr. Patel Irene DPM Other Provider Active St art: May 28, 2025 Dr. Russell Clement MD Other Provider Active Start : May 28, 2025 Team Status: Active Member Role/Relationship Status Dates Dr. Rishi Vasquez DO Primary Care Provider Active Start: May 28, 2025 Dr. Heron Wilde DO Emergency Provider Active Start: May 28, 2025 Dr. Wilberto Suazo , DO Admit Provider Active Start: May 28, 2025 Dr. Wilberto Suazo DO Referring Provider Active Start: May 28, 2025 Dr. Wilberto Suazo DO Other Provider Active Start: May 28, 2025 Dr. Maddie Merchant MD Other Provider Active St art: May 28, 2025 Dr. Michaela Joshua , DO Other Provider Active Start : May 28, 2025 Dr. Patel Irene DPM Other Provider Active St art: May 28, 2025 Dr. Russell Clement MD Other Provider Active Start : May 28, 2025 LILLIAM Gilmore Attending Provider Active Star t: May 28, 2025 Team Status: Active Member Role/Relationship Status Dates Dr. Rishi Vasquez DO Primary Care Provider Active Start: May 29, 2025 Dr. Heron Wilde DO Emergency Provider Active Start: May 29, 2025 Dr. Wilberto Suazo DO Admit Provider Active Start: May 29, 2025 Dr. Wilberto Suazo DO Other Provider Active Start: May 29, 2025 Dr. Maddie Merchant MD Attending Provider Active Start: May 29, 2025 Dr. Maddie Merchant MD Other Provider Active St art: May 29, 2025 Dr. Michaela Joshua DO Other Provider Active Start : May 29, 2025 Dr. Patel Irnee DPM Other Provider Active St art: May 29, 2025 Dr. Russell Clement MD Other Provider Active Start : May 29, 2025 Team Status: Active Member Role/Relationship Status Dates Dr. Rishi Vasquez DO Primary Care Provider Active Start: May 29, 2025 Dr. Heron Wilde , DO Emergency Provider Active Start: May 29, 2025 Dr. Wilbetro Suazo , DO Admit Provider Active Start: May 29, 2025 Dr. Wilberto Suazo DO Referring Provider Active Start: May 29, 2025 Dr. Wilberto Suazo DO Other Provider Active Start: May 29, 2025 Dr. Michaela Joshua , DO Other Provider Active Start : May 29, 2025 Dr. Patel Irene DPM Other Provider Active St art: May 29, 2025 Dr. Russell Clement MD Other Provider Active Start : May 29, 2025 Dr. Christos Morrow MD Other Provider Active Star t: May 29, 2025 Dr. Maddie Merchant MD Other Provider Active St art: May 29, 2025 LILLIAM Gilmore Attending Provider Active Star t: May 29, 2025 Team Status: Active Member Role/Relationship Status Dates Dr. Rishi Vasquez DO Primary Care Provider Active Start: May 30, 2025 Dr. Heron Wilde DO Emergency Provider Active Start: May 30, 2025 Dr. Wilberto Suazo , DO Admit Provider Active Start: May 30, 2025 Dr. Wilberto Suazo , DO Other Provider Active Start: May 30, 2025 Dr. Maddie Merchant MD Attending Provider Active Start: May 30, 2025 Dr. Maddie Merchant MD Other Provider Active St art: May 30, 2025 Dr. Michaela Joshua , DO Other Provider Active Start : May 30, 2025 Dr. Patel Irene DPM Other Provider Active St art: May 30, 2025 Dr. Russell Clement MD Other Provider Active Start : May 30, 2025 Team Status: Active Member Role/Relationship Status Dates Dr. Rishi Vasquez DO Primary Care Provider Active Start: May 31, 2025 Dr. Heron Wilde , DO Emergency Provider Active Start: May 31, 2025 Dr. Wilberto Suazo DO Admit Provider Active Start: May 31, 2025 Dr. Wilberto Suazo DO Other Provider Active Start: May 31, 2025 Dr. Maddie Merchant MD Attending Provider Active Start: May 31, 2025 Dr. Maddie Merchant MD Other Provider Active St art: May 31, 2025 Dr. Michaela Tres , DO Other Provider Active Start : May 31, 2025 Dr. Patel Irene DPM Other Provider Active St art: May 31, 2025 Dr. Russell Clement MD Other Provider Active Start : May 31, 2025 Team Status: Active Member Role/Relationship Status Dates Dr. Rishi Vasquez DO Primary Care Provider Active Start: June 01, 2025 Dr. Heron Wilde DO Emergency Provider Active Start: June 01, 2025 Dr. Wilberto Suazo DO Admit Provider Active Start: June 01, 2025 Dr. Wilberto Suazo DO Other Provider Active Start: June 01, 2025 Dr. Michaela Joshua DO Other Provider Active Start : June 01, 2025 Dr. Patel Irene DPM Other Provider Active St art: June 01, 2025 Dr. Russell Clement MD Other Provider Active Start : June 01, 2025 Dr. Christos Morrow MD Attending Provider Active Start: June 01, 2025 Dr. Christos Morrow MD Other Provider Active Star t: June 01, 2025 Dr. Maddie Merchant MD Other Provider Active St art: June 01, 2025 Team Status: Active Member Role/Relationship Status Dates Dr. Rishi Vasquez DO Primary Care Provider Active Start: June 01, 2025 Dr. Phong Solomon MD Admit Provider Active Star t: June 01, 2025 Dr. Phong Solomon MD Attending Provider Active Start: June 01, 2025 Dr. Patel Irene DPM Other Provider Active St art: June 01, 2025 Dr. Kwaku Mendoza MD Other Provider Active Start: June 01, 2025 Team Status: Active Member Role/Relationship Status Dates Dr. Rishi Vasquez DO Primary Care Provider Active Start: June 04, 2025 Dr. Phong Solomon MD Admit Provider Active Star t: June 04, 2025 Dr. Phong Solomon MD Other Provider Active Star t: June 04, 2025 Dr. Patel Irene DPM Other Provider Active St art: June 04, 2025 Dr. Kwaku Mendoza MD Other Provider Active Start: June 04, 2025 Dr. Ortega Yanez DO Attending Provider Active Start: June 04, 2025 Team Status: Inactive Member Role/Relationship Status Dates Dr. Rishi Vasquez DO Primary Care Provider Active Start: June 05, 2025 End: June 05, 2025 Dr. Rishi Vasquez DO Referring Provider Active Start: June 05, 2025 End: June 05, 2025 Dr. Ortega Yanez DO Attending Provider Active Start: June 05, 2025 End: June 05, 2025 Team Status: Active Member Role/Relationship Status Dates Dr. Rishi Vasquez DO Primary Care Provider Active Start: June 05, 2025 Dr. Rishi Vasquez DO Referring Provider Active Start: June 05, 2025 Dr. Ortega Yanez DO Attending Provider Active Start: June 05, 2025 Dr. Ortega Yanez DO Other Provider Active St art: June 05, 2025 Team Status: Inactive Member Role/Relationship Status Dates Dr. Rishi Vasquez DO Primary Care Provider Active Start: June 09, 2025 End: June 09, 2025 Dr. Rishi Vasquez DO Referring Provider Active Start: June 09, 2025 End: June 09, 2025 LILLIAM Gilmore Attending Provider Active Star t: June 09, 2025 End: June 09, 2025 Team Status: Inactive Member Role/Relationship Status Dates Dr. Rishi Vasquez DO Primary Care Provider Active Start: June 11, 2025 End: June 11, 2025 Dr. Shahnaz Bishop DO Attending Provider Active Start: June 11, 2025 End: June 11, 2025 Dr. Shahnaz Bishop DO Emergency Provider Active Start: June 11, 2025 End: June 11, 2025 Team Status: Inactive Member Role/Relationship Status Dates Dr. Rishi Vasquez DO Primary Care Provider Active Start: June 12, 2025 End: June 12, 2025 Dr. Phong Solomon MD Attending Provider Active Start: June 12, 2025 End: June 12, 2025 Dr. Phong Solomon MD Referring Provider Active Start: June 12, 2025 End: June 12, 2025 Team Status: Inactive Member Role/Relationship Status Dates Dr. Rishi Vasquez DO Primary Care Provider Active Start: June 16, 2025 End: June 18, 2025 Dr. Rishi Vasquez , DO Attending Provider Active Start: June 16, 2025 End: June 18, 2025 Dr. Rishi Vasquez DO Referring Provider Active Start: June 16, 2025 End: June 18, 2025 Team Status: Inactive Member Role/Relationship [...] Start: March 11, 2025 Dr. Esteban Becker , DO Emergency Provider Active Start : [...] Active Start: A pril 2024 Team Status: Inactive Member Role/Relationship Status [...] April 20, 2025 Team Status: Inactive Member Role/Relationship Status Dates Dr. Rishi Vasquez DO Primary Care Provider Active Start: April 23, 2025 End: May 18, 2025 Dr. Rishi Vasquez DO Attending Provider Active Start: April 23, 2025 End: May 18, 2025 Dr. Rishi Vasquez DO Referring Provider Active Start: April 23, 2025 End: May 18, 2025 Team Status: Inactive Member Role/Relationship Status Dates Dr. Rishi Vaqsuez DO Primary Care Provider Active Start: April [...] 2025 End: May 07, 2025 Rick Bergeron PORTABLE ROUTER OPERATOR, PORTABLE ROUTER OPERATOR-C Attending Provider Active S tart: May 07, [...] 2025 End: May 13, 2025 Team Status: Inactive Member Role/Relationship Status [...] Provider Active Sta rt: May 18, 2025 ELVA ArtisM Other Provider Active St art: May 18, [...] May 18, 2025 Dr. Michaela Joshua , Other Provider [...] Active Start : May 18, 2025 Dr. Viad Day MD Other Provider Active Star t: [...] Active Star t: May 19, 2025 Dr. Jcainto Tamez DO Other Provider Active Start : [...] Start: May 21, 2025 Dr. Jerri Castillo , DO Emergency Provider Active S tart: May 21, 2025 Dr. Maddie Merchant MD Admit Provider Active St art: May 21, 2025 Dr. Maddie Merchant MD Other Provider Active St art: May 21, 2025 Dr. Michaela Joshua , DO Attending Provider Active S tart: May 21, 2025 Dr. Michaela Joshua , DO Other Provider Active Start : May 21, 2025 Dr. Kwaku Mendoza MD Other Provider Active Start: May 21, 2025 Dr. Patel Irene , [employer] Other Provider Active St art: May 21, 2025 Dr. Russell Clement MD Other Provider Active Start : May 21, 2025 Team Status: Active Member Role/Relationship Status Dates Dr. Rishi Vasquez , DO Primary Care Provider Active Start: May 22, 2025 Dr. Heron Wilde , DO Emergency Provider Active Start: May 22, 2025 Dr. Wilberto Suazo , DO Admit Provider Active Start: May 22, 2025 Dr. Wilberto Suazo , DO Attending Provider Active Start: May 22, 2025 Dr. Wilberto Suazo , DO Other Provider Active Start: May 22, 2025 Team Status: Active Member Role/Relationship Status Dates Dr. Rishi Vasquez , DO Primary Care Provider Active Start: May 23, 2025 Dr. Heron Wilde , DO Emergency Provider Active Start: May 23, 2025 Dr. Wilberto Suazo , DO Admit Provider Active Start: May 23, 2025 Dr. Wilberto Suazo , DO Other Provider Active Start: May 23, 2025 Dr. Michaela Joshua , DO Attending Provider Active S tart: May 23, 2025 Dr. Michaela Joshua , DO Other Provider Active Start : May 23, 2025 Dr. Patel Irene , [place] Other Provider Active St art: May 23, 2025 Team Status: Active Member Role/Relationship Status Dates Dr. Rishi Vasquez , DO Primary Care Provider Active Start: May 24, 2025 Dr. Heron Wilde , DO Emergency Provider Active Start: May 24, 2025 Dr. Wilberto Suazo , DO Admit Provider Active Start: May 24, 2025 Dr. Wilberto Suazo , DO Other Provider Active Start: May 24, 2025 Dr. Michaela Joshua , DO Attending Provider Active S tart: May 24, 2025 Dr. Michaela Tres , DO Other Provider Active Start : May 24, 2025 Dr. aPtel Irene DPM Other Provider Active St art: May 24, 2025 Dr. Russell Clement MD Other Provider Active Start : May 24, 2025 Team Status: Inactive Member Role/Relationship Status Dates Dr. Rishi Vasquez DO Primary Care Provider Active Start: May 25, 2025 End: June 01, 2025 Dr. Heron Wilde DO Emergency Provider Active Start: May 25, 2025 End: June 01, 2025 Dr. Wilberto Suazo DO Admit Provider Active Start: May 25, 2025 End: June 01, 2025 Dr. Wilberto Suazo DO Referring Provider Active Start: May 25, 2025 End: June 01, 2025 Dr. Wilberto Suazo DO Other Provider Active Start: May 25, 2025 End: June 01, 2025 Dr. Michaela Joshua DO Other Provider Active Start : May 25, 2025 End: June 01, 2025 Dr. Patel Irene DPM Other Provider Active St art: May 25, 2025 End: June 01, 2025 Dr. Russell Clement MD Other Provider Active Start : May 25, 2025 End: June 01, 2025 Dr. Christos Morrow MD Attending Provider Active Start: May 25, 2025 End: June 01, 2025 Dr. Maddie Merchant MD Other Provider Active St art: May 25, 2025 End: June 01, 2025 Team Status: Active Member Role/Relationship Status Dates Dr. Rishi Vasquez DO Primary Care Provider Active Start: May 25, 2025 Dr. Heron Wilde DO Emergency Provider Active Start: May 25, 2025 Dr. Wilberto Suazo DO Admit Provider Active Start: May 25, 2025 Dr. Wilberto Suazo DO Referring Provider Active Start: May 25, 2025 Dr. Wilberto Suazo DO Other Provider Active Start: May 25, 2025 Dr. Patel Irene DPM Other Provider Active St art: May 25, 2025 Dr. Russell Clement MD Attending Provider Active S tart: May 25, 2025 Dr. Russell Clement MD Other Provider Active Start : May 25, 2025 Dr. Maddie Merchant MD Other Provider Active St art: May 25, 2025 Dr. Michaela Tres , DO Other Provider Active Start : May 25, 2025 Team Status: Active Member Role/Relationship Status Dates Dr. Rishi Vasquez , DO Primary Care Provider Active Start: May 26, 2025 Dr. Heron Wilde , DO Emergency Provider Active Start: May 26, 2025 Dr. Wilberto Suazo DO Admit Provider Active Start: May 26, 2025 Dr. Wilberto Suazo , DO Other Provider Active Start: May 26, 2025 Dr. Maddie Merchant MD Attending Provider Active Start: May 26, 2025 Dr. Maddie Merchant MD Other Provider Active St art: May 26, 2025 Dr. Michaela Joshua , DO Other Provider Active Start : May 26, 2025 Dr. Patel Irene DPM Other Provider Active St art: May 26, 2025 Dr. Russell Clement MD Other Provider Active Start : May 26, 2025 Team Status: Active Member Role/Relationship Status Dates Dr. Rishi Vasquez DO Primary Care Provider Active Start: May 26, 2025 Dr. Heron Wilde DO Emergency Provider Active Start: May 26, 2025 Dr. Wilberto Suazo , DO Admit Provider Active Start: May 26, 2025 Dr. Wilberto Suazo DO Referring Provider Active Start: May 26, 2025 Dr. Wilberto Suazo DO Other Provider Active Start: May 26, 2025 Dr. Patel Irene DPM Other Provider Active St art: May 26, 2025 Dr. Russell Clement MD Attending Provider Active S tart: May 26, 2025 Dr. Russell Clement MD Other Provider Active Start : May 26, 2025 Dr. Maddie Merchant MD Other Provider Active St art: May 26, 2025 Dr. Michaela Joshua , DO Other Provider Active Start : May 26, 2025 Team Status: Active Member Role/Relationship Status Dates Dr. Rishi Vasquez , DO Primary Care Provider Active Start: May 27, 2025 Dr. Heron Wilde , DO Emergency Provider Active Start: May 27, 2025 Dr. Wilberto Suazo , DO Admit Provider Active Start: May 27, 2025 Dr. Wilberto Suazo , DO Other Provider Active Start: May 27, 2025 Dr. Maddie Merchant MD Attending Provider Active Start: May 27, 2025 Dr. Maddie Merchant MD Other Provider Active St art: May 27, 2025 Dr. Michaela Joshua , DO Other Provider Active Start : May 27, 2025 Dr. Patel Irene DPM Other Provider Active St art: May 27, 2025 Dr. Russell Clement MD Other Provider Active Start : May 27, 2025 Team Status: Active Member Role/Relationship Status Dates Dr. Rishi Vasquez DO Primary Care Provider Active Start: May 27, 2025 Dr. Heron Wilde , DO Emergency Provider Active Start: May 27, 2025 Dr. Wilberto Suazo , DO Admit Provider Active Start: May 27, 2025 Dr. Wilberto Suazo DO Referring Provider Active Start: May 27, 2025 Dr. Wilberto Suazo DO Other Provider Active Start: May 27, 2025 Dr. Maddie Merchant MD Other Provider Active St art: May 27, 2025 Dr. Michaela Joshua DO Other Provider Active Start : May 27, 2025 Dr. Patel Irene DPM Other Provider Active St art: May 27, 2025 Dr. Russell Clement MD Other Provider Active Start : May 27, 2025 LILLIAM Gilmore Attending Provider Active Star t: May 27, 2025 Team Status: Active Member Role/Relationship Status Dates Dr. Rishi Vasquez DO Primary Care Provider Active Start: May 28, 2025 Dr. Heron Wilde DO Emergency Provider Active Start: May 28, 2025 Dr. Wilberto Suazo DO Admit Provider Active Start: May 28, 2025 Dr. Wilberto Suazo DO Other Provider Active Start: May 28, 2025 Dr. Maddie Merchant MD Attending Provider Active Start: May 28, 2025 Dr. Maddie Merchant MD Other Provider Active St art: May 28, 2025 Dr. Michaela Joshua , Other Provider Active Start : May 28, 2025 Dr. Patel Irene DPM Other Provider Active St art: May 28, 2025 Dr. Russell Clement MD Other Provider Active Start : May 28, 2025 Team Status: Active Member Role/Relationship Status Dates Dr. Rishi Vasquez DO Primary Care Provider Active Start: May 28, 2025 Dr. Heron Wilde DO Emergency Provider Active Start: May 28, 2025 Dr. Wilberto Suazo DO Admit Provider Active Start: May 28, 2025 Dr. Wilberto Suazo DO Referring Provider Active Start: May 28, 2025 Dr. Wilberto Suazo , DO Other Provider Active Start: May 28, 2025 Dr. Maddie Merchant MD Other Provider Active St art: May 28, 2025 Dr. Michaela Joshua DO Other Provider Active Start : May 28, 2025 Dr. Patel Irene DPM Other Provider Active St art: May 28, 2025 Dr. Russell Clement MD Other Provider Active Start : May 28, 2025 LILLIAM Gilmore Attending Provider Active Star t: May 28, 2025 Team Status: Active Member Role/Relationship Status Dates Dr. Rishi Vasquez DO Primary Care Provider Active Start: May 29, 2025 Dr. Heron Wilde DO Emergency Provider Active Start: May 29, 2025 Dr. Wilberto Suazo DO Admit Provider Active Start: May 29, 2025 Dr. Wilberto Suazo DO Other Provider Active Start: May 29, 2025 Dr. Maddie Merchant MD Attending Provider Active Start: May 29, 2025 Dr. Maddie Merchant MD Other Provider Active St art: May 29, 2025 Dr. Michaela Joshua DO Other Provider Active Start : May 29, 2025 Dr. Patel Irene DPM Other Provider Active St art: May 29, 2025 Dr. Russell Clement MD Other Provider Active Start : May 29, 2025 Team Status: Active Member Role/Relationship Status Dates Dr. Rishi Vasquez DO Primary Care Provider Active Start: May 29, 2025 Dr. Heron Wilde DO Emergency Provider Active Start: May 29, 2025 Dr. Wilberto Suazo DO Admit Provider Active Start: May 29, 2025 Dr. Wilberto Suazo DO Referring Provider Active Start: May 29, 2025 Dr. Wilberto Suazo DO Other Provider Active Start: May 29, 2025 Dr. Michaela Joshua DO Other Provider Active Start : May 29, 2025 Dr. Patel Irene DPM Other Provider Active St art: May 29, 2025 Dr. Russell Clement MD Other Provider Active Start : May 29, 2025 Dr. Christos Morrow MD Other Provider Active Star t: May 29, 2025 Dr. Maddie Merchant MD Other Provider Active St art: May 29, 2025 LILLIAM Gilmore Attending Provider Active Star t: May 29, 2025 Team Status: Active Member Role/Relationship Status Dates Dr. Rishi Vasquez DO Primary Care Provider Active Start: May 30, 2025 Dr. Heron Wilde DO Emergency Provider Active Start: May 30, 2025 Dr. Wilberto Suazo , DO Admit Provider Active Start: May 30, 2025 Dr. Wilberto Suazo DO Other Provider Active Start: May 30, 2025 Dr. Maddie Merchant MD Attending Provider Active Start: May 30, 2025 Dr. Maddie Merchant MD Other Provider Active St art: May 30, 2025 Dr. Michaela Joshua , DO Other Provider Active Start : May 30, 2025 Dr. Patel Irene DPM Other Provider Active St art: May 30, 2025 Dr. Russell Clement MD Other Provider Active Start : May 30, 2025 Team Status: Active Member Role/Relationship Status Dates Dr. Rishi Vasquez DO Primary Care Provider Active Start: May 31, 2025 Dr. Heron Wilde , DO Emergency Provider Active Start: May 31, 2025 Dr. Wilberto Suazo DO Admit Provider Active Start: May 31, 2025 Dr. Wilberto Suazo DO Other Provider Active Start: May 31, 2025 Dr. Maddie Merchant MD Attending Provider Active Start: May 31, 2025 Dr. Maddie Merchant MD Other Provider Active St art: May 31, 2025 Dr. Michaela Johsua DO Other Provider Active Start : May 31, 2025 Dr. Patel Irene DPM Other Provider Active St art: May 31, 2025 Dr. Russell Clement MD Other Provider Active Start : May 31, 2025 Team Status: Active Member Role/Relationship Status Dates Dr. Rishi Vasquez DO Primary Care Provider Active Start: June 01, 2025 Dr. Heron Wilde DO Emergency Provider Active Start: June 01, 2025 Dr. Wilberto Suazo DO Admit Provider Active Start: June 01, 2025 Dr. Wilberto Suazo DO Other Provider Active Start: June 01, 2025 Dr. Michaela Joshua , DO Other Provider Active Start : June 01, 2025 Dr. Patel Irene DPM Other Provider Active St art: June 01, 2025 Dr. Russell Clement MD Other Provider Active Start : June 01, 2025 Dr. Christos Morrow MD Attending Provider Active Start: June 01, 2025 Dr. Christos Morrow MD Other Provider Active Star t: June 01, 2025 Dr. Maddie Merchant MD Other Provider Active St art: June 01, 2025 Team Status: Inactive Member Role/Relationship Status Dates Dr. Rishi Vasquez DO Primary Care Provider Active Start: June 01, 2025 End: June 30, 2025 Dr. Phong Solomon MD Admit Provider Active Star t: June 01, 2025 End: June 30, 2025 Dr. Phong Solomon MD Attending Provider Active Start: June 01, 2025 End: June 30, 2025 Dr. Patel Irene DPM Other Provider Active St art: June 01, 2025 End: June 30, 2025 Dr. Kwaku Mendoza MD Other Provider Active Start: June 01, 2025 End: June 30, 2025 LILLIAM Gilmore Other Provider Active Start: [facility] 2024 End: June 30, 2025 Team Status: Active Member Role/Relationship Status Dates Dr. Rishi Vasquez DO Primary Care Provider Active Start: June 04, 2025 Dr. Phong Solomon MD Admit Provider Active Star t: June 04, 2025 Dr. Phong Solomon MD Other Provider Active Star t: June 04, 2025 Dr. Patel Irene DPM Other Provider Active St art: June 04, 2025 Dr. Kwaku Mendoza MD Other Provider Active Start: June 04, 2025 Dr. Ortega Yanez DO Attending Provider Active Start: June 04, 2025 Team Status: Inactive Member Role/Relationship Status Dates Dr. Rishi Vasquez DO Primary Care Provider Active Start: June 05, 2025 End: June 05, 2025 Dr. Rishi Vasquez DO Referring Provider Active Start: June 05, 2025 End: June 05, 2025 Dr. Ortega Yanez DO Attending Provider Active Start: June 05, 2025 End: June 05, 2025 Team Status: Active Member Role/Relationship Status Dates Dr. Rishi Vasquez DO Primary Care Provider Active Start: June 05, 2025 Dr. Rishi Vasquez DO Referring Provider Active Start: June 05, 2025 Dr. Ortega Yanez DO Attending Provider Active Start: June 05, 2025 Dr. Ortega Yanez DO Other Provider Active St art: June 05, 2025 Team Status: Inactive Member Role/Relationship Status Dates Dr. Rishi Vasquez DO Primary Care Provider Active Start: June 09, 2025 End: June 09, 2025 Dr. Rishi Vasquez DO Referring Provider Active Start: June 09, 2025 End: June 09, 2025 LILLIAM Gilmore Attending Provider Active Star t: June 09, 2025 End: June 09, 2025 Team Status: Inactive Member Role/Relationship Status Dates Dr. Rishi Vasquez DO Primary Care Provider Active Start: June 11, 2025 End: June 11, 2025 Dr. Shahnaz Bishop DO Attending Provider Active Start: June 11, 2025 End: June 11, 2025 Dr. Shahnaz Bishop DO Emergency Provider Active Start: June 11, 2025 End: June 11, 2025 Team Status: Inactive Member Role/Relationship Status Dates Dr. Rishi Vasquez DO Primary Care Provider Active Start: June 12, 2025 End: June 12, 2025 Dr. Phong Solomon MD Attending Provider Active Start: June 12, 2025 End: June 12, 2025 Dr. Phong Solomon MD Referring Provider Active Start: June 12, 2025 End: June 12, 2025 Team Status: Inactive Member Role/Relationship Status Dates Dr. Rishi Vasquez DO Primary Care Provider Active Start: June 16, 2025 End: June 18, 2025 Dr. Rishi Vasquez DO Attending Provider Active Start: June 16, 2025 End: June 18, 2025 Dr. Rishi Vasquez DO Referring Provider Active Start: June 16, 2025 End: June 18, 2025 Team Status: Inactive Member Role/Relationship Status Dates Dr. Rishi Vasquez DO Primary Care Provider Active Start: June 19, 2025 End: June 19, 2025 Dr. Phong Solomon MD Attending Provider Active Start: June 19, 2025 End: June 19, 2025 Dr. Phong Solomon MD Referring Provider Active Start: June 19, 2025 End: June 19, 2025 Team Status: Active Member Role/Relationship Status Dates Dr. Rishi Vasquez DO Primary Care Provider Active Start: June 19, 2025 Dr. Phong Solomon MD Admit Provider Active Star t: June 19, 2025 Dr. Phong Soolmon MD Other Provider Active Star t: June 19, 2025 Dr. Patel Irene DPM Other Provider Active St art: June 19, 2025 Dr. Kwaku Mendoza MD Other Provider Active Start: June 19, 2025 LILLIAM Gilmore Attending Provider Active Star t: June 19, 2025 LILLIAM Gilmore Other Provider Active Start: A ugust 2024 Team Status: Active Member Role/Relationship Status Dates Dr. Rishi Vasquez DO Primary Care Provider Active Start: June 23, 2025 Dr. Rishi Vasquez DO Attending Provider Active Start: June 23, 2025 Dr. Rishi Vasquez DO Referring Provider Active Start: June 23, 2025 Team Status: Active Member Role/Relationship Status Dates Dr. Rishi Vasquez DO Primary Care Provider Active Start: June 25, 2025 Dr. Phong Solomon MD Admit Provider Active Star t: June 25, 2025 Dr. Phong Solomon MD Other Provider Active Star t: June 25, 2025 Dr. Patel Irene DPM Other Provider Active St art: June 25, 2025 Dr. Kwaku Mendoza MD Other Provider Active Start: June 25, 2025 LILLIAM Gilmore Attending Provider Active Star t: June 25, 2025 LILLIAM Gilmore Other Provider Active Start: A ugust 2024 INFORMATION SOURCE (unrecogn ized section and content) DATE CREATED AUTHOR 06/20/2025 [facility] DATE CREATED AUTHOR AUTHOR'S ORGANIZ ATION 06/29/2025 [facility] FOR RECORDS PERTAINING TO PATIENTS WHO [...] BE BASED ON THE PRIMARY CLINICAL RECORDS. [facility] [employer] [facility]. provides no warranty or guarantee of the accuracy or completeness of information in this document.
[2025-06-30] MEDS: Lactated Ringers 1,000 ML 15 ML IV (06:36)
--- NOTE | 2025-06-30 06:51 | PRE.ANES_ITS ---
ASA Classification* ASA Classification ASA Classification: 3 Assessment & Plan Anesthesia* Anesthesia Assessment Anesthesia Assessment: Discussed sedation and/or anesthesia options, risks, benefits, and alternatives with patient/parents/legal guardian/POA. Questions invited. The patient/parents/legal guardian/POA seems to understand and agrees to proceed with anesthesia plan. Reviewed the physical assessment, medical history, allergy history and patient home medications list prior to surgery/procedure/anesthetic and documented any changes. Performed airway and anesthesia risk assessments. Anesthesia Type Anesthesia Type: General History Source History Obtained from:: Patient and Chart Anesthesia Focused Assessment* Temperature: 97.8 F Pulse Rate: 53 Blood Pressure: 152/58 Respiratory Rate: 16 Pulse Ox: 94 Airway Assessment Mouth opens: >3 cm Mallampati Score: I Teeth Condition: Dentures and Full (removed) Neck Range of motion (ROM): Full ROM Labs Anesthesia Preop lab: CBC WBC 4.6 K/mm3 (4.4-11.0) 06/23/25 05:50 06/23/25 RBC 2.94 M/mm3 (4.2-5.4) L 06/23/25 05:50 06/23/25 Hgb 8.3 g/dL (12.0-15.0) L 06/29/25 05:24 06/29/25 Hct 26.4 % (37-47) L 06/29/25 05:24 06/29/25 Plt Count 176 K/mm3 (150-450) 06/23/25 05:50 06/23/25 CHEMISTRY Potassium 3.7 mmol/L (3.3-5.1) 06/23/25 05:50 06/23/25 Sodium 144 mmol/L (133-145) 06/23/25 05:50 06/23/25 Magnesium 1.8 mg/dL (1.5-2.2) 06/11/25 09:10 06/11/25 Phosphorus 3.5 mg/dL (2.7-4.5) 06/01/25 10:07 06/01/25 BUN 42 mg/dL (4-19) H 06/23/25 05:50 06/23/25 Creatinine 0.90 mg/dL (0.70-1.20) 06/23/25 05:50 06/23/25 Glucose 78 mg/dL (70-99) 06/23/25 05:50 06/23/25 POC Glucose 72 mg/dL (74-106) L 06/30/25 05:19 06/30/25 TSH < 0.01 uIU/mL (0.358-3.74) L 02/07/17 09:38 COAG PT 14.5 SECONDS (11.7-14.9) 05/27/25 03:05 Pre-Assessment Diagnosis/Proposed Procedure Planned Operative Procedure(s): (R) Right Femoral Endarterectomy, Right femoral to Tibial artery Bypass with Cadaver Graft, Right Sartorius Flap Anesthesia History 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 When Was Last Pacemaker Check QUESTION #4 FULL TEXT: You/Your Family Experience fever (hyperthermia) with Anesthesia Last Oral Intake Last Oral intake: Last Oral Intake NPO since 00:00 06/30/25 06:09 Meds taken in AM with sips of No 06/30/25 06:09 water? 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 Female Yes 06/12/25 09:50 HX of Motion Sickness No 06/12/25 09:50 HX of N/V After Surgery No 06/12/25 09:50 Non-Smoker Yes 06/12/25 09:50 Duration of Surgery greater Yes 06/12/25 09:50 than 60 minutes Number of Risk Factors 3 06/12/25 09:50 PONV Score Moderate Risk 06/12/25 09:50 Height & Weight Height & Weight: Anesthesia: Height & Weight Height 5 ft 6 in 06/30/25 06:09 Weight: 79.1 kg 06/30/25 06:09 Body Mass Index (BMI) 28.1 06/30/25 06:09 Respiratory Assessment Respiratory Assessment - vulcanizing machine operator: Respiratory Tract Infection Hx - vulcanizing machine operator Hx Respiratory Tract Infection No 06/12/25 09:50 STOP Sleep Apnea STOP Sleep Apnea - vulcanizing machine operator: STOP Sleep Apnea - vulcanizing machine operator Hx Hypertension Yes: on meds 06/12/25 09:50 Hx Sleep Apnea No 06/12/25 09:50 CPAP No 06/05/25 18:48 BIPAP No 05/22/25 14:40 Do you snore loudly (louder No 06/12/25 09:50 than talking or can be heard Do you often feel tired/ No 06/12/25 09:50 fatigued/ sleepy during daytime? Has anyone observed you stop No 06/12/25 09:50 breathing during sleep? STOP Results Negative 06/12/25 09:50 QUESTION #5 FULL TEXT : Do you snore loudly (louder than talking or can be heard through closed doors)? 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 Specify any problems Hx of Preganancy in last 3 No 06/12/25 09:50 Months Nurse Filling Out Transfusion JZOLLINGE 06/12/25 09:50 & Questions: Date: 06/12/25 06/12/25 09:50 Time: 09:52 06/12/25 09:50 Patient unable to answer at this time (ie. confused, unrespo /Reproduction History /Reproductive History - vulcanizing machine operator: /Reproductive Hx- vulcanizing machine operator Hx Now No 06/12/25 09:50 Gestational Age (in weeks): EDC: Hx Hx Para Hx Section SAB No 06/12/25 09:50 Active Medications Active Medications: Current Medications Generic Name Dose Route Start Last Admin Trade Name Freq PRN Reason Stop Dose Admin Cefazolin Sodium 2 gm/ Sodium 110 mls @ 200 mls/hr 06/30/25 07:30 Chloride IV 06/30/25 08:02 INTRAOP ONE Lactated Ringer's 1,000 mls @ 15 mls/hr 06/30/25 06:45 06/30/25 06:36 IV 15 mls/hr .Q48H HADLEY Administration PFSH Medical History (Updated 06/24/25 @ 16:[address] 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 Other specified peripheral vascular diseases Anemia MRSA (methicillin resistant staph aureus) culture positive Diabetes Back pain Vertigo History of pain when walking Hypertension Arthritis Wears dentures Post-menopausal Low iron High cholesterol Easy bruising Neuropathy Dietary restriction Former smoker Cardiology follow-up encounter History of torn meniscus of left knee Carotid artery stenosis Essential hypertension Skin lesion Hammer toe of left foot Osteomyelitis Chronic kidney disease, stage 3 Atherosclerosis of coronary artery of [place] heart without angina pectoris Hyperlipidemia Peripheral vascular occlusive disease Hammer toe of second toe of left foot Hallux valgus (acquired), right foot Healed ulcer of left foot on examination Chronic ulcer of left foot with fat layer exposed Delayed wound healing Malnutrition Osteomyelitis of foot 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 Methicillin resistant Staphylococcus aureus infection Chronic osteomyelitis of left foot Non-healing ulcer of right foot DM2 (diabetes mellitus, type 2) Home Medications ?Medication ?Instructions ?Recorded ?Last Taken ?Type aspirin 81 mg tablet,delayed 81 mg PO QHS blood clots 01/13/14 05/31/25 20:15 History release multivitamin with folic acid 400 1 tab PO DAILY Supple ment 01/13/14 06/01/25 09:00 History mcg tablet omega-3 fatty acids-fish oil 340 1 ea PO DAILY supplem ent 06/29/16 08/27/16 History mg-1,000 mg capsule ferrous sulfate 325 mg (65 mg 325 mg PO DAILY SUPPLEME NT 08/15/18 06/10/25 History iron) tablet ascorbic acid (vitamin C) 500 mg 1,000 mg PO LUNCH Sup plement 11/25/20 06/01/25 12:50 History tablet calcium carbonate (Calcium 600) 600 mg PO DAILY supple ment 12/29/21 06/01/25 09:00 History clopidogrel 75 mg tablet 75 mg PO DAILY Blood clots # 90 tabs 10/23/24 06/01/25 09:00 Rx Lactobacillus acidophilus 600 mg PO QDAY gi 03/07/25 0 06/01/25 09:00 History (Acidophilus capsule) pregabalin 100 mg capsule 100 mg PO TID nerve pain 06/01/25 12:50 History simvastatin 20 mg tablet 20 mg PO QHS cholesterol #30 tabs 03/23/25 05/31/25 20:15 Rx nystatin 100,000 unit/gram topical 1 applic topical BI D PRN rash 05/07/25 Unknown History powder (Nyamyc) acetaminophen 650 mg 650 mg PO Q12H PRN pain 04/20 Unknown History tablet,extended release amlodipine 5 mg tablet 5 mg PO DAILY HTN #90 tabs 0 05/12/25 06/01/25 09:00 Rx metoprolol succinate 25 mg 12.5 mg (1/2 x 25 mg) PO DA FABIAN 05/12/25 06/01/25 09:00 Rx tablet,extended release 24 hr HEART RATE #45 tabs glimepiride 2 mg tablet 2 mg PO BID Diabetes 5 Unknown History menthol 0.44 %-zinc oxide 20.6 % 1 applic topical BID Skin 05/28/25 Unknown Rx topical ointment (Calmoseptine) Irritation #0 grams oxycodone 5 mg tablet 5 mg PO Q4H PRN PRN Pain Sco re 05/28/25 05/30/25 Rx 4-10 #0 tabs Allergy/AdvReac Type Severity Reaction Status Date / Time Sulfa (Sulfonamide Allergy Unknown Verified 06/12/25 09:37 Antibiotics) Family History Father CAD (coronary artery disease) Heart disease Hypertension CVA (cerebral vascular accident) Mother COPD (chronic obstructive pulmonary disease) Hypertension Heart disease Heart failure Surgical History History of cardiac catheterization History of colonoscopy History of foot surgery History of repair of left rotator cuff History of total left knee replacement (~2014) History of angioplasty of peripheral vessel (~2012) amputation left toe History of left heart catheterization (~01/20/14) Social History household members: none Smoking Status: Former smoker how long ago did patient quit smokin years ago alcohol intake: never substance use type: does not use caffeine: No Review of Systems (Anesthesia) ROS Narrative System reviewed and no additional complaints, except as documented. Physical Exam Const alert and oriented x3 Neck full ROM Resp normal respiratory effort, normal air movement and clear to auscultation bilaterally Cardio regular rate and regular rhythm
--- NOTE | 2025-06-30 07:07 | EX.PCM.CON.S ---
Assessment & Plan Assessment/Plan (1) Peripheral vascular disease: PLAN: I talked to the patient about my involvement today in surgery (assisting vascular with the vascular procedure, and coverage of the vascular intervention with a likely muscle flap). We talked about muscle flap options, including sartorius, vastus lateralis, rectus femoris, and rectus abdominis. We talked about the donor site defects for these flaps and potential complications (hernia/bulge, weakening of knee extension, damage to cutaneous nerves/numbness). I talked to the patient extensively about the risks of surgery, including bleeding, infection, damage to surrounding structures, poor scaring, surgical site dehiscence and wound formation, need for wound care, need for repeat operations, flap failure, failure to obtain the desired result, DVT/PE, and the risks of anesthesia including , including stroke (from low blood pressure/ischemia or clot). The benefits and alternatives of this surgery were also discussed. All of their questions were answered, and they agreed to proceed with surgery. INTERVAL H&P PLAN, DATE OF SURGERY: We will proceed with surgery today. HPI Consult Data Date of Consult: 06/30/25 HPI Narrative HPI Narrative: KIMBERLY NEWMAN is a 75 F who presents today for a R femoral endarterectomy, R femoral-tibial bypass with vascular surgery. They're requesting assistance with the surgery and with flap reconstruction. I talked to the patient today in pre-operative holding. [facility] Medical History Chronic painful diabetic polyneuropathy Non-pressure chronic ulcer of other part of right foot with fat layer exposed 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 foot with fat layer exposed Type 2 diabetes mellitus with foot ulcer History of MRSA infection Pressure ulcer Ambulates with cane Shortness of breath on exertion History of edema History of echocardiogram Fall 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 Atherosclerosis of three affiliated artery of both lower extremities with gangrene Other specified peripheral vascular diseases Anemia MRSA (methicillin resistant staph aureus) culture positive Diabetes Back pain Vertigo History of pain when walking Hypertension Arthritis Wears dentures Post-menopausal Low iron High cholesterol Easy bruising Neuropathy Dietary restriction Former smoker Cardiology follow-up encounter History of torn meniscus of left knee Carotid artery stenosis Essential hypertension Skin lesion Hammer toe of left foot Osteomyelitis Chronic kidney disease, stage 3 Atherosclerosis of coronary artery of three affiliated heart without angina pectoris Hyperlipidemia Peripheral vascular occlusive disease Hammer toe of second toe of left foot Hallux valgus (acquired), right foot Healed ulcer of left foot on examination Chronic ulcer of left foot with fat layer exposed Delayed wound healing Malnutrition Osteomyelitis of foot 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 Methicillin resistant Staphylococcus aureus infection Chronic osteomyelitis of left foot Non-healing ulcer of right foot DM2 (diabetes mellitus, type 2) Home Medications ?Medication ?Instructions ?Recorded ?Last Taken ?Type aspirin 81 mg tablet,delayed 81 mg PO QHS blood clots 01/13/14 05/31/25 20:15 History release multivitamin with folic acid 400 1 tab PO DAILY Supplement 01/13/14 06/01/25 09:00 History mcg tablet omega-3 fatty acids-fish oil 340 1 ea PO DAILY supplement 06/29/16 08/27/16 History mg-1,000 mg capsule ferrous sulfate 325 mg (65 mg 325 mg PO DAILY SUPPLEMENT 08/15/18 06/10/25 History iron) tablet ascorbic acid (vitamin C) 500 mg 1,000 mg PO LUNCH Supplement 11/25/20 06/01/25 12:50 History tablet calcium carbonate (Calcium 600) 600 mg PO DAILY supplement 12/29/21 06/01/25 09:00 History clopidogrel 75 mg tablet 75 mg PO DAILY Blood clots #90 tabs 10/23/24 06/01/25 09:00 Rx Lactobacillus acidophilus 600 mg PO QDAY gi 03/07/25 06/01/25 09:00 History (Acidophilus capsule) pregabalin 100 mg capsule 100 mg PO TID nerve pain 03/07/25 06/01/25 12:50 History simvastatin 20 mg tablet 20 mg PO QHS cholesterol #30 tabs 03/23/25 05/31/25 20:15 Rx nystatin 100,000 unit/gram topical 1 applic topical BID PRN rash 05/07/25 Unknown History powder (Nyamyc) acetaminophen 650 mg 650 mg PO Q12H PRN pain 05/08/25 Unknown History tablet,extended release amlodipine 5 mg tablet 5 mg PO DAILY HTN #90 tabs 05/12/25 06/01/25 09:00 Rx metoprolol succinate 25 mg 12.5 mg (1/2 x 25 mg) PO DAILY 05/12/25 06/01/25 09:00 Rx tablet,extended release 24 hr HEART RATE #45 tabs glimepiride 2 mg tablet 2 mg PO BID Diabetes 05/18/25 Unknown History menthol 0.44 %-zinc oxide 20.6 % 1 applic topical BID Skin 05/28/25 Unknown Rx topical ointment (Calmoseptine) Irritation #0 grams oxycodone 5 mg tablet 5 mg PO Q4H PRN PRN Pain Score 05/28/25 05/30/25 Rx 4-10 #0 tabs Allergy/AdvReac Type Severity Reaction Status Date / Time Sulfa (Sulfonamide Allergy Unknown Verified 06/12/25 09:37 Antibiotics) Family History Father CAD (coronary artery disease) Heart disease Hypertension CVA (cerebral vascular accident) Mother COPD (chronic obstructive pulmonary disease) Hypertension Heart disease Heart failure Surgical History History of cardiac catheterization History of colonoscopy History of foot surgery History of repair of left rotator cuff History of total left knee replacement (~2014) History of angioplasty of peripheral vessel (~2012) amputation left toe History of left heart catheterization (~01/20/14) Social History household members: none Smoking Status: Former smoker how long ago did patient quit smokin years ago alcohol intake: never substance use type: does not use caffeine: No Physical Exam Narrative Abdomen: No scars. No hernias on palpation. Excess skin (massive weight loss) RLE: Right thigh: No scars Able to extend right leg, able to plantarflex and extend foot
--- NOTE | 2025-06-30 07:25 | HP.PCM_ITS ---
HPI - General General Date of Admission: 06/30/25 HPI Narrative KIMBERLY NEWMAN, is a 75 F who presents with non healing wound, RLE and severe multi level disease. [facility] Medical History Chronic painful diabetic polyneuropathy Non-pressure chronic ulcer of other part of right foot with fat layer exposed 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 foot with fat layer exposed Type 2 diabetes mellitus with foot ulcer History of MRSA infection Pressure ulcer Ambulates with cane Shortness of breath on exertion History of edema History of echocardiogram Fall 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 Atherosclerosis of [place] artery of both lower extremities with gangrene Other specified peripheral vascular diseases Anemia MRSA (methicillin resistant staph aureus) culture positive Diabetes Back pain Vertigo History of pain when walking Hypertension Arthritis Wears dentures Post-menopausal Low iron High cholesterol Easy bruising Neuropathy Dietary restriction Former smoker Cardiology follow-up encounter History of torn meniscus of left knee Carotid artery stenosis Essential hypertension Skin lesion Hammer toe of left foot Osteomyelitis Chronic kidney disease, stage 3 Atherosclerosis of coronary artery of [place] heart without angina pectoris Hyperlipidemia Peripheral vascular occlusive disease Hammer toe of second toe of left foot Hallux valgus (acquired), right foot Healed ulcer of left foot on examination Chronic ulcer of left foot with fat layer exposed Delayed wound healing Malnutrition Osteomyelitis of foot 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 Methicillin resistant Staphylococcus aureus infection Chronic osteomyelitis of left foot Non-healing ulcer of right foot DM2 (diabetes mellitus, type 2) Home Medications ?Medication ?Instructions ?Recorded ?Last Taken ?Type aspirin 81 mg tablet,delayed 81 mg PO QHS blood clots 01/13/14 05/31/25 20:15 History release multivitamin with folic acid 400 1 tab PO DAILY Supple ment 01/13/14 06/01/25 09:00 History mcg tablet omega-3 fatty acids-fish oil 340 1 ea PO DAILY supplem ent 06/29/16 08/27/16 History mg-1,000 mg capsule ferrous sulfate 325 mg (65 mg 325 mg PO DAILY SUPPLEME NT 08/15/18 06/10/25 History iron) tablet ascorbic acid (vitamin C) 500 mg 1,000 mg PO LUNCH Sup plement 11/25/20 06/01/25 12:50 History tablet calcium carbonate (Calcium 600) 600 mg PO DAILY supple ment 12/29/21 06/01/25 09:00 History clopidogrel 75 mg tablet 75 mg PO DAILY Blood clots # 90 tabs 10/23/24 06/01/25 09:00 Rx Lactobacillus acidophilus 600 mg PO QDAY gi 03/07/25 0 06/01/25 09:00 History (Acidophilus capsule) pregabalin 100 mg capsule 100 mg PO TID nerve pain 06/01/25 12:50 History simvastatin 20 mg tablet 20 mg PO QHS cholesterol #30 tabs 03/23/25 05/31/25 20:15 Rx nystatin 100,000 unit/gram topical 1 applic topical BI D PRN rash 05/07/25 Unknown History powder (Nyamyc) acetaminophen 650 mg 650 mg PO Q12H PRN pain 04/20 Unknown History tablet,extended release amlodipine 5 mg tablet 5 mg PO DAILY HTN #90 tabs 0 05/12/25 06/01/25 09:00 Rx metoprolol succinate 25 mg 12.5 mg (1/2 x 25 mg) PO DA FABIAN 05/12/25 06/01/25 09:00 Rx tablet,extended release 24 hr HEART RATE #45 tabs glimepiride 2 mg tablet 2 mg PO BID Diabetes 5 Unknown History menthol 0.44 %-zinc oxide 20.6 % 1 applic topical BID Skin 05/28/25 Unknown Rx topical ointment (Calmoseptine) Irritation #0 grams oxycodone 5 mg tablet 5 mg PO Q4H PRN PRN Pain Sco re 05/28/25 05/30/25 Rx 4-10 #0 tabs Allergy/AdvReac Type Severity Reaction Status Date / Time Sulfa (Sulfonamide Allergy Unknown Verified 06/12/25 09:37 Antibiotics) Family History Father CAD (coronary artery disease) Heart disease Hypertension CVA (cerebral vascular accident) Mother COPD (chronic obstructive pulmonary disease) Hypertension Heart disease Heart failure Surgical History History of cardiac catheterization History of colonoscopy History of foot surgery History of repair of left rotator cuff History of total left knee replacement (~2014) History of angioplasty of peripheral vessel (~2012) amputation left toe History of left heart catheterization (~01/20/14) Social History household members: none Smoking Status: Former smoker how long ago did patient quit smokin years ago alcohol intake: never substance use type: does not use caffeine: No ROS Constitutional Constitutional: Denies chills, fever(s), frequent falls, lethargy or weakness Eyes Eyes: Denies blind spots, change in vision or loss of vision ENT HEENT: Denies bleeding gums, hoarseness or sore throat Cardiovascular Cardiovascular: Denies abdominal pain, bluish discoloration of hand/feet, chest pain with activity, claudication, cold extremities, cyanosis, dyspnea on exertion, erythema on extremities, irregular heart rhythm, leg edema, leg ulcers, numbness in extremities or weakness in extremities Respiratory/Chest Respiratory/Chest: Denies cough, excessive phlegm production, shortness of breath at rest, shortness of breath with exertion or wheezing Gastrointestinal Gastrointestinal: Denies anorexia, change in stool character, constipation, diarrhea, melena or rectal bleeding Genitourinary Genitourinary: Denies dysuria or hematuria Musculoskeletal Musculoskeletal: Denies abnormal gait Integumentary Integumentary: Reports other Details: ; Denies erythema, non-healing lesions or wounds Neurologic Neurologic: Denies abnormal speech, focal weakness, headache(s), loss of vision, numbness, paresthesias or sensory deficit Hematologic/Lymphatic Hematologic/Lymphatic: Denies easy bleeding, easy bruising or lymphadenopathy Vital Signs Vital Signs Vital Signs: 06/30/25 06:09 06/30/25 06:09 06/30/25 06:56 Temperature 97.8 F 97.8 F Temperature Source Temporal Pulse Rate 53 L 53 L Respiratory Rate 16 16 Respiratory Pattern Normal Blood Pressure 152/58 H 152/58 H Blood Pressure Mean 89 Blood Pressure Source Monitor Blood Pressure Position Semi-Fowlers Blood Pressure Location Left Arm Pulse Ox 94 94 Oxygen Delivery Method Room Air Weight Weight: 174 lb 6.17 oz Body Mass Index (BMI) 28.1 Physical Exam Const alert, oriented x3, no apparent distress and healthy appearing General Appearance: cooperative; Negative for combative or lethargic Orientation / Consciousness: awake Exam Limitations: no limitations HEENT Head and Scalp: normocephalic and atraumatic Eyes EOMs intact bilaterally General Eye: normal appearance of both eyes Neck full ROM General: trachea midline Resp normal respiratory effort and no use of accessory muscles Effort and Inspection: Negative for labored, stridor or audible wheezes Cardio regular rate and regular rhythm Back/Spine Cervical Spine: cervical ROM normal Extremity full ROM, normal capillary refill and no clubbing, cyanosis or edema Neuro oriented x3, CN's II-XII intact bilaterally, no focal motor deficits and no sensory deficits noted Psych thought process normal, cooperative, affect normal, speech normal and a ctivity/motor behavior normal Assessment & Plan Assessment/Plan (1) Atherosclerosis of [place] arteries of right leg with ulceration of heel and midfoot: PLAN: -right femoral endarterectomy, femoral-tibial/peroneal bypass, muscle flap
[2025-06-30] MEDS: Lidocaine 2% (5ml sdv) 5 ML VIAL.MPF 8 ML IV (07:44)
[2025-06-30] MEDS: Lidocaine 1% (5 ml sdv) 5 ML Vial 8 ML IV (07:44)
[2025-06-30] MEDS: Cefazolin 1 GM/5 ML Vial 2 GM IV (08:00)
[2025-06-30] MEDS: Lactated Ringers 500 ML IV (08:00)
[2025-06-30] MEDS: fentaNYL 100 MCG/2 ML Ampul IV (09:28)
[2025-06-30 09:30] LABS: ACT Activated Clotting Time 164 sec (74-137)
--- NOTE | 2025-06-30 09:55 | PCM.POST.ANE ---
Anesthesia: Postop Eval I Current Vital Signs Temperature: 97 F Pulse Rate: 65 Blood Pressure: 135/58 Respiratory Rate: 14 Pulse Ox: 99 Oxygen Delivery Method: Nasal Cannula Assessment Airway patent: Yes Spontaneous unlabored respirations: Yes Mental status: Awake nausea: No Vomiting: No Anesthesia Complication: No Fluid Hydration Crystalloid volume administer (ml): 1,100 Total IV fluid infused: 1,100 Progress Note Anesthesia document: Postop Eval 1 completed: Yes
--- NOTE | 2025-06-30 10:23 | DCINST_ITS ---
Discharge Instructions Diet Discharge Diet: No restrictions Activity May resume sexual activity in: No Restrictions Dressing / Incision Call your doctor if your incision/area has: Sudden Increased Bleeding, Increased Pain/ Swelling, Increased Redness and Foul Smelling Discharge Remove Dressing in: 1 week Cleanse incision/area with: Soap & Water Follow Up Care Test Results: Test results from this visit will be discussed in further detail at your follow- up appointment, if applicable. Discharge Plan Admission Admit Date/Time: 06/30/25 05:50 Attending Provider: Russell Clement Primary Care Provider: Rishi Vasquez Discharge Orders/Prescriptions Prescriptions: Continued calcium carbonate [Calcium 600] 600 mg calcium (1,500 mg) tablet 600 mg PO DAILY nystatin [Nyamyc] 100,000 unit/gram powder 1 applic topical BID PRN (Reason: rash) Protocol: *Topical Application Instructions APPLICATION INSTRUCTIONS: apply to abdominal folds, under breasts aspirin 81 MG tablet 81 mg PO QHS multivitamin with folic acid 1 TABLET tablet 1 tab PO DAILY Patient Comments: vitamin supplement ascorbic acid (vitamin C) 500 mg tablet 1,000 mg PO LUNCH Patient Comments: supplement omega-3 fatty acids-fish oil 1 EACH capsule 1 ea PO DAILY Patient Comments: supplement ferrous sulfate 325 MG tablet 325 mg PO DAILY menthol-zinc oxide [Calmoseptine] 0.44-20.6 % Ointment 1 applic topical BID Qty: 0 0RF Protocol: *Topical Application Instructions APPLICATION INSTRUCTIONS: groin oxycodone 5 mg Tablet 5 mg PO Q4H PRN PRN (Reason: Pain Score 4-10) Qty: 0 0RF pregabalin 100 mg capsule 100 mg PO TID Acidophilus Capsule 600 mg PO QDAY acetaminophen 650 mg tablet extended release 650 mg PO Q12H PRN (Reason: pain) glimepiride 2 mg tablet 2 mg PO BID clopidogrel 75 mg tablet 75 mg PO DAILY Qty: 90 3RF Patient Comments: ask about stopping simvastatin 20 mg tablet 20 mg PO QHS Qty: 30 11RF amlodipine 5 mg tablet 5 mg PO DAILY Qty: 90 3RF metoprolol succinate 25 mg tablet extended release 24 hr 12.5 mg PO DAILY Qty: 45 3RF Other Ambulatory Orders: Type & Screen (Routine) Timeframe: 20250630 Facility: [facility] - Location: Laboratory Ordered By: Dr. Russell Clement Referrals / Follow Up: Rishi Vasquez DO [Primary Care Provider] - Disposition Disposition (needs filled in before D/C Order can be placed): [facility]
--- NOTE | 2025-06-30 13:17 | OP.PCM_ITS ---
Operative Report (Standard) Operative Information Date of Procedure: 06/30/25 Pre-Operative Diagnosis: Atherosclerosis with ulceration of the right heel Post-Operative Diagnosis: Same Surgery/Procedure Performed: Exploration right common femoral and distal external iliac artery Aborted femoral endarterectomy and femoral peroneal bypass form tamping machine operator: Yes Hose Mender: Kwaku Tierney Tasks completed by surgical first assistant: Opening, Closing and Hemostasis: Tie Additional equal opportunity assistant?: Yes Additional Electric Vehicle Electrician #2: Reina Martins Tasks completed by equal opportunity assistant #2: Opening and Retracting Type of Anesthesia: General RN Documented Start/Stop Times: Operation Date: 06/30/25 07:30 Case Time Into Pre-Op 06/30/25 05:40 Anesthesia Start 06/30/25 07:30 Into Room 06/30/25 07:30 Out of Pre-Op 06/30/25 07:32 Procedure Start 06/30/25 08:26 Procedure End 06/30/25 09:38 Anesthesia End 06/30/25 09:44 Out of Room 06/30/25 09:44 Into Recovery 06/30/25 09:45 Into Phase II Recovery 06/30/25 10:39 Out of Recovery 06/30/25 10:39 Out of Phase II 06/30/25 10:56 Procedure Start Time: :25 Procedure Stop Time: 09:40 Select all DRAINS/GRAFTS/IMPLANTS that apply: None Estimated Blood Loss: 15 Specimen collected: No Description of surgery: HPI: Patient is a 75-year-old female with severe multilevel bilateral arterial occlusive disease with bilateral foot ulcerations. She previously had undergone left femoral endarterectomy and left femoral-posterior tibial bypass for limb salvage and presents now for a staged right femoral endarterectomy with femoral to peroneal bypass planned. Her prior CTA revealed significant calcification of the external iliac artery and common femoral artery however there did not appear to be 1 site that was potentially a window into the disease to allow for clamp placement. Description of procedure: Upon obtaining informed consent and verification correct patient procedure site the patient was taken the op room where she was placed under general anesthesia. She was then positioned prepped and draped in usual sterile fashion and timeout was performed. Skin overlying the right femoral artery was incised vertically and Bovie used to dissect through subcutaneous tissue. Self-retaining retractors were put in position and further dissection carried down to the femoral sheath which was then incised exposing the common femoral artery. Dissection then carried proximally to the inguinal ligament which was freed along its inferior border allowing cephalad retraction. The common femoral and external iliac artery were inspected and palpated. The area with the least amount of visible atherosclerotic and calcific burden on the CT scan was identified however the site was still too significantly diseased to safely clamp. The vessel was extensively evaluated circumferentially along the entire accessible segment of external iliac artery with no site amenable to clamp placement identified. In order to avoid any potential hemorrhagic complication is felt that aborting the procedure was the most appropriate course of action. The incision closed with 3-0 Vicryl, 4-0 Monocryl, Prineo/Adaptic /Prevena. The patient was then taken the recovery room with plan return to the TCU. Surgical Findings: Highly calcified distal external iliac artery and common femoral artery Complications Complications: Yes Complication Details: Procedure aborted due to calcification of external iliac artery and no site suitable for clamp placement
[2025-07-01 07:50] LABS: Base Excess 4 mmol/L (-2 to +2); PO2 224 mmHG (75-100); SO2 100 % (95-99)
== END 2025-06-30 10:56 | DRG 253 ==
LOC: ACINP 10:29 → SDC 07-07 09:20
PROVIDERS: PCP Student in an Organized Health Care Education/Training Program; Referring Provider Surgery Trauma Surgery; Visit Provider Surgery Trauma Surgery
PROC: 04JY0ZZ Inspection of Lower Artery, Open Approach (ICD-10-PCS; CPT 35703; principal; 2025-06-30 07:00)
DX: E11.51 Type 2 diabetes mellitus with diabetic peripheral angiopathy without gangrene (principal); I70.234 Atherosclerosis of native arteries of right leg with ulceration of heel and midfoot; E11.621 Type 2 diabetes mellitus with foot ulcer; L97.419 Non-pressure chronic ulcer of right heel and midfoot with unspecified severity; L97.529 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 foot with unspecified severity; E11.22 Type 2 diabetes mellitus with diabetic chronic kidney disease; E11.42 Type 2 diabetes mellitus with diabetic polyneuropathy; N18.30 Chronic kidney disease, stage 3 unspecified; I12.9 Hypertensive chronic kidney disease with stage 1 through stage 4 chronic kidney disease, or unspecified chronic kidney disease; E78.00 Pure hypercholesterolemia, unspecified; I25.10 Atherosclerotic heart disease of native coronary artery without angina pectoris; Z53.8 Procedure and treatment not carried out for other reasons; Z79.02 Long term (current) use of antithrombotics/antiplatelets; Z79.82 Long term (current) use of aspirin; Z79.84 Long term (current) use of oral hypoglycemic drugs; Z79.891 Long term (current) use of opiate analgesic; Z79.899 Other long term (current) drug therapy; Z87.891 Personal history of nicotine dependence
CPT/HCPCS: 35703; 01500; 82803; 82962; 85347; A4648; J2405

== ENCOUNTER → 2025-07-09 | Outpatient (CLI) | payer MEDICARE, SELFPAY ==
--- NOTE | 2025-07-09 15:31 | VDLE_ITS ---
Reason For Study Reason For Study: Left leg pain RIGHT LEFT FV is compressible, spontaneous, phasic, competent GSV is normal. and demonstrates normal augmentation. CFV is compressible, spontaneous, phasic, competent, Procedure and demonstrates normal augmentation. This is a venous duplex using B-mode, color flow and FV is compressible, spontaneous, phasic, competent spectral Doppler. and demonstrates normal augmentation. Exam performed portable in patient room. POP V is compressible, spontaneous, phasic, competent A preliminary report was called and/or faxed to Carole and demonstrates normal augmentation. RN and Meka STEPHENS. T/P Trunk is compressible. PTV is compressible. LT PerV is compressible. Calf veins only visualized at prox calf due to bandages. Enlarged lymph node noted in the left groin that measures 1.58 x 5.03 cm. VL/Venous Duplex US, Unilateral Interpretation Summary Deep veins of the left lower extremity are patent and compressible segmentally. There is no evidence of left lower extremity deep vein thrombosis. The left great saphenous vein appears patent an d compressible segmentally. Enlarged left inguinal lymph node noted that measures 1.58 x 5.03 cm. Ordering Physician: Russell Clement Referring Physician: Rishi Vasquez Performed By: Jacquie French RVT
== END | disposition home or self-care (01) ==
PROVIDERS: PCP Student in an Organized Health Care Education/Training Program; Referring Provider Surgery Trauma Surgery; Visit Provider Surgery Trauma Surgery
DX: M79.662 Pain in left lower leg (principal); M79.89 Other specified soft tissue disorders
CPT/HCPCS: 93971

== ENCOUNTER 2025-07-13 16:01 | Day surgery (SDC) | payer MEDICARE, SELFPAY ==
[2025-07-13] MEDS: Lactated Ringers 1,000 ML 15 ML IV (16:08)
--- NOTE | 2025-07-13 16:26 | PCM.HP.STD ---
HPI - General General Date of Admission: 07/13/25 Date of Service: 07/13/25 Chief Complaint: Anemia HPI Narrative 75-year-old lady with past medical history signal for PAD with previous angioplasty, diabetes mellitus type 2,Recent debridement of surgical debridement of chronic bilateral lower extremity DFU's admitted with progressive generalized weakness she also has a history of bilateral lower extremity ulcerations and wounds in setting of severe peripheral vascular disease and diabetes. She had a skin graft done on 05 20. She developed peripheral vascular disease in her arteries and veins. She underwent left femoral endarterectomy along with left [place] peroneal bypass with left sartorius flap on 05/26/2025. Since being in the TCU she has had a drop in her hemoglobin. She has baseline anemia chronic disease but she has been also having some abdominal pain. [facility] Medical History Right rotator cuff tear arthropathy Right shoulder pain Chronic painful diabetic polyneuropathy Non-pressure chronic ulcer of other part of right foot with fat layer exposed 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 foot with fat layer exposed Type 2 diabetes mellitus with foot ulcer History of MRSA infection Pressure ulcer Ambulates with cane Shortness of breath on exertion History of edema History of echocardiogram Fall 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 Atherosclerosis of [place] artery of both lower extremities with gangrene Other specified peripheral vascular diseases Anemia MRSA (methicillin resistant staph aureus) culture positive Diabetes Back pain Vertigo History of pain when walking Hypertension Arthritis Wears dentures Post-menopausal Low iron High cholesterol Easy bruising Neuropathy Dietary restriction Former smoker Cardiology follow-up encounter History of torn meniscus of left knee Carotid artery stenosis Essential hypertension Skin lesion Hammer toe of left foot Osteomyelitis Chronic kidney disease, stage 3 Atherosclerosis of coronary artery of [place] heart without angina pectoris Hyperlipidemia Peripheral vascular occlusive disease Hammer toe of second toe of left foot Hallux valgus (acquired), right foot Healed ulcer of left foot on examination Chronic ulcer of left foot with fat layer exposed Delayed wound healing Malnutrition Osteomyelitis of foot 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 Methicillin resistant Staphylococcus aureus infection Chronic osteomyelitis of left foot Non-healing ulcer of right foot DM2 (diabetes mellitus, type 2) Home Medications ?Medication ?Instructions ?Recorded ?Last Taken ?Type aspirin 81 mg tablet,delayed 81 mg PO QHS blood clots 01/13/14 05/31/25 20:15 History release multivitamin with folic acid 400 1 tab PO DAILY Supplement 01/13/14 06/01/25 09:00 History mcg tablet omega-3 fatty acids-fish oil 340 1 ea PO DAILY supplement 06/29/16 08/27/16 History mg-1,000 mg capsule ferrous sulfate 325 mg (65 mg 325 mg PO DAILY SUPPLEMENT 08/15/18 06/10/25 History iron) tablet ascorbic acid (vitamin C) 500 mg 1,000 mg PO LUNCH Supplement 11/25/20 06/01/25 12:50 History tablet calcium carbonate (Calcium 600) 600 mg PO DAILY supplement 12/29/21 06/01/25 09:00 History clopidogrel 75 mg tablet 75 mg PO DAILY Blood clots #90 tabs 10/23/24 06/01/25 09:00 Rx Lactobacillus acidophilus 600 mg PO QDAY gi 03/07/25 06/01/25 09:00 History (Acidophilus capsule) pregabalin 100 mg capsule 100 mg PO TID nerve pain 03/07/25 06/01/25 12:50 History simvastatin 20 mg tablet 20 mg PO QHS cholesterol #30 tabs 03/23/25 05/31/25 20:15 Rx nystatin 100,000 unit/gram topical 1 applic topical BID PRN rash 05/07/25 Unknown History powder (Maamy) acetaminophen 650 mg 650 mg PO Q12H PRN pain 05/08/25 Unknown History tablet,extended release amlodipine 5 mg tablet 5 mg PO DAILY HTN #90 tabs 05/12/25 06/01/25 09:00 Rx metoprolol succinate 25 mg 12.5 mg (1/2 x 25 mg) PO DAILY 05/12/25 06/01/25 09:00 Rx tablet,extended release 24 hr HEART RATE #45 tabs glimepiride 2 mg tablet 2 mg PO BID Diabetes 05/18/25 Unknown History menthol 0.44 %-zinc oxide 20.6 % 1 applic topical BID Skin 05/28/25 Unknown Rx topical ointment (Calmoseptine) Irritation #0 grams oxycodone 5 mg tablet 5 mg PO Q4H PRN PRN Pain Score 05/28/25 05/30/25 Rx 4-10 #0 tabs ampicillin-sulbactam 3 gram 3 g IV Q8H 07/13/25 07/13/25 History intravenous solution levofloxacin 250 mg tablet 250 mg PO DAILY 07/13/25 07/13/25 History pregabalin 100 mg capsule (Lyrica) 100 mg PO TID 07/13/25 07/13/25 History sucralfate 1 gram tablet (Carafate) 1 g PO TID 07/13/25 07/13/25 History vancomycin 1,000 mg intravenous 1 g IV .q24 07/13/25 07/13/25 History injection Allergy/AdvReac Type Severity Reaction Status Date / Time Sulfa (Sulfonamide Allergy Unknown Verified 07/10/25 09:07 Antibiotics) Family History Father CAD (coronary artery disease) Heart disease Hypertension CVA (cerebral vascular accident) Mother COPD (chronic obstructive pulmonary disease) Hypertension Heart disease Heart failure Surgical History History of cardiac catheterization History of colonoscopy History of foot surgery History of repair of left rotator cuff History of total left knee replacement (~2014) History of angioplasty of peripheral vessel (~2012) amputation left toe History of left heart catheterization (~01/20/14) Social History household members: none Smoking Status: Former smoker how long ago did patient quit smokin years ago alcohol intake: never substance use type: does not use caffeine: No ROS Constitutional Constitutional: Denies fatigue, fever(s), poor appetite, weight gain or weight loss Gastrointestinal Gastrointestinal: Denies belching, bloating, change in bowel habits, change in stool character, chewing difficulty, coffee ground emesis, constipation, cramping, diarrhea, dyspepsia, dysphagia, early satiety, excessive flatus, fecal incontinence, heartburn, hematemesis, hematochezia, hemorrhoids, loose stools, melena, nausea, odynophagia, rectal bleeding, tenesmus, vomiting or weight changes Physical Exam Const alert, oriented x3, no apparent distress and healthy appearing General Appearance: cooperative GI normal to inspection, nondistended, normoactive bowel sounds, soft to palpation, non-tender and non-distended Percussion: normal to percussion Rectal Exam: deferred Assessment & Plan Assessment/Plan (1) Anemia: PLAN: Patient's hemoglobin went down to 7.8 and she received 1 unit packed red blood cells went up to 9.3. Since she needs to go on anticoagulation due to severe peripheral vascular disease and dual antiplatelet therapy. She should undergo an upper endoscopy evaluate upper GI tract.
--- NOTE | 2025-07-13 16:28 | PCM.PRE.AN2 ---
ASA Classification* ASA Classification ASA Classification: 3 Assessment & Plan Anesthesia* Anesthesia Assessment Anesthesia Assessment: Discussed sedation and/or anesthesia options, risks, benefits, and alternatives with patient/parents/legal guardian/POA. Questions invited. The patient/parents/legal guardian/POA seems to understand and agrees to proceed with anesthesia plan. Reviewed the physical assessment, medical history, allergy history and patient home medications list prior to surgery/procedure/anesthetic and documented any changes. Performed airway and anesthesia risk assessments. Anesthesia Type Anesthesia Type: MAC Anesthesia Focused Assessment* Oxygen Delivery Method: Room Air Airway Assessment Mouth opens: 2 cm Mallampati Score: II Teeth Condition: Lower and Upper Neck Range of motion (ROM): Full ROM Labs Anesthesia Preop lab: CBC WBC 5.4 K/mm3 (4.4-11.0) 07/08/25 05:39 07/08/25 RBC 2.31 M/mm3 (4.2-5.4) L 07/08/25 05:39 07/08/25 Hgb 9.0 g/dL (12.0-15.0) L 07/10/25 16:05 07/10/25 Hct 28.0 % (37-47) L 07/10/25 16:05 07/10/25 Plt Count 142 K/mm3 (150-450) L 07/08/25 05:39 07/08/25 CHEMISTRY Potassium 4.4 mmol/L (3.3-5.1) 07/08/25 05:39 07/08/25 Sodium 142 mmol/L (133-145) 07/08/25 05:39 07/08/25 Magnesium 1.8 mg/dL (1.5-2.2) 06/11/25 09:10 06/11/25 Phosphorus 3.5 mg/dL (2.7-4.5) 06/01/25 10:07 06/01/25 BUN 44 mg/dL (4-19) H 07/08/25 05:39 07/08/25 Creatinine 1.10 mg/dL (0.70-1.20) 07/08/25 05:39 07/08/25 Glucose 112 mg/dL (70-99) H 07/08/25 05:39 07/08/25 POC Glucose 80 mg/dL (74-106) 07/13/25 13:10 07/13/25 TSH < 0.01 uIU/mL (0.358-3.74) L 02/07/17 09:38 02/07/17 COAG PT 14.5 SECONDS (11.7-14.9) 05/27/25 03:05 05/27/25 Pre-Assessment Diagnosis/Proposed Procedure Planned Operative Procedure(s): Colonoscopy Anesthesia History Anesthesia History - head stock transfer clerk: Anesthesia History - head stock transfer clerk Hx Hospitalization Yes: 05-26-25 vascular surgery 06/12/25 09:50 Any Problems With Anesthesia No 06/12/25 09:50 Cholinesterase deficiency No 06/12/25 09:50 You/Your Family Experience No 06/12/25 09:50 fever (hyperthermia) with Relationship Recent Exposure to Contagious No 06/30/25 06:09 Disease Does patient have nerve No 06/12/25 09:50 stimulator Patient instructed to have device shut off --Does patient have Pacemaker or ICD? When Was Last Pacemaker Check QUESTION #4 FULL TEXT: You/Your Family Experience fever (hyperthermia) with Anesthesia Last Oral Intake Last Oral intake: Last Oral Intake NPO since Meds taken in AM with sips of water? Meds patient instructed to take am of surgery PONV PONV - head stock transfer clerk: PONV - head stock transfer clerk Female HX of Motion Sickness HX of N/V After Surgery Non-Smoker Duration of Surgery greater than 60 minutes Number of Risk Factors PONV Score Height & Weight Height & Weight: Anesthesia: Height & Weight Height 5 ft 6 in 06/30/25 06:09 Respiratory Assessment Respiratory Assessment - head stock transfer clerk: Respiratory Tract Infection Hx - head stock transfer clerk Hx Respiratory Tract Infection No 06/12/25 09:50 STOP Sleep Apnea STOP Sleep Apnea - head stock transfer clerk: STOP Sleep Apnea - head stock transfer clerk Hx Hypertension Yes: on meds 06/12/25 09:50 Hx Sleep Apnea No 06/30/25 10:30 CPAP No 06/30/25 09:50 BIPAP No 05/22/25 14:40 Do you snore loudly (louder than talking or can be heard Do you often feel tired/ fatigued/ sleepy during daytime? Has anyone observed you stop breathing during sleep? STOP Results QUESTION #5 FULL TEXT : Do you snore loudly (louder than talking or can be heard through closed doors)? 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 Specify any problems Hx of Preganancy in last 3 Months Nurse Filling Out Transfusion & Questions: Date: Time: Patient unable to answer at this time (ie. confused, unrespo /Reproduction History /Reproductive History - head stock transfer clerk: /Reproductive Hx- head stock transfer clerk Hx Now Gestational Age (in weeks): EDC: Hx Hx Para Hx Section SAB No 06/12/25 09:50 Active Medications Active Medications: Current Medications Generic Name Dose Route Start Last Admin Trade Name Freq PRN Reason Stop Dose Admin Lactated Ringer's 1,000 mls @ 15 mls/hr 07/13/25 16:15 07/13/25 16:08 IV 15 mls/hr .Q48H HADLEY Administration PFSH Medical History Right rotator cuff tear arthropathy Right shoulder pain Chronic painful diabetic polyneuropathy Non-pressure chronic ulcer of other part of right foot with fat layer exposed 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 foot with fat layer exposed Type 2 diabetes mellitus with foot ulcer History of MRSA infection Pressure ulcer Ambulates with cane Shortness of breath on exertion History of edema History of echocardiogram Fall 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 Other specified peripheral vascular diseases Anemia MRSA (methicillin resistant staph aureus) culture positive Diabetes Back pain Vertigo History of pain when walking Hypertension Arthritis Wears dentures Post-menopausal Low iron High cholesterol Easy bruising Neuropathy Dietary restriction Former smoker Cardiology follow-up encounter History of torn meniscus of left knee Carotid artery stenosis Essential hypertension Skin lesion Hammer toe of left foot Osteomyelitis Chronic kidney disease, stage 3 Atherosclerosis of coronary artery of [place] heart without angina pectoris Hyperlipidemia Peripheral vascular occlusive disease Hammer toe of second toe of left foot Hallux valgus (acquired), right foot Healed ulcer of left foot on examination Chronic ulcer of left foot with fat layer exposed Delayed wound healing Malnutrition Osteomyelitis of foot 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 Methicillin resistant Staphylococcus aureus infection Chronic osteomyelitis of left foot Non-healing ulcer of right foot DM2 (diabetes mellitus, type 2) Home Medications ?Medication ?Instructions ?Recorded ?Last Taken ?Type aspirin 81 mg tablet,delayed 81 mg PO QHS blood clots 01/13/14 05/31/25 20:15 History release multivitamin with folic acid 400 1 tab PO DAILY Supplement 01/13/14 06/01/25 09:00 History mcg tablet omega-3 fatty acids-fish oil 340 1 ea PO DAILY supplement 06/29/16 08/27/16 History mg-1,000 mg capsule ferrous sulfate 325 mg (65 mg 325 mg PO DAILY SUPPLEMENT 08/15/18 06/10/25 History iron) tablet ascorbic acid (vitamin C) 500 mg 1,000 mg PO LUNCH Supplement 11/25/20 06/01/25 12:50 History tablet calcium carbonate (Calcium 600) 600 mg PO DAILY supplement 12/29/21 06/01/25 09:00 History clopidogrel 75 mg tablet 75 mg PO DAILY Blood clots #90 tabs 10/23/24 06/01/25 09:00 Rx Lactobacillus acidophilus 600 mg PO QDAY gi 03/07/25 06/01/25 09:00 History (Acidophilus capsule) pregabalin 100 mg capsule 100 mg PO TID nerve pain 03/07/25 06/01/25 12:50 History simvastatin 20 mg tablet 20 mg PO QHS cholesterol #30 tabs 03/23/25 05/31/25 20:15 Rx nystatin 100,000 unit/gram topical 1 applic topical BID PRN rash 05/07/25 Unknown History powder (Nyamyc) acetaminophen 650 mg 650 mg PO Q12H PRN pain 05/08/25 Unknown History tablet,extended release amlodipine 5 mg tablet 5 mg PO DAILY HTN #90 tabs 05/12/25 06/01/25 09:00 Rx metoprolol succinate 25 mg 12.5 mg (1/2 x 25 mg) PO DAILY 05/12/25 06/01/25 09:00 Rx tablet,extended release 24 hr HEART RATE #45 tabs glimepiride 2 mg tablet 2 mg PO BID Diabetes 05/18/25 Unknown History menthol 0.44 %-zinc oxide 20.6 % 1 applic topical BID Skin 05/28/25 Unknown Rx topical ointment (Calmoseptine) Irritation #0 grams oxycodone 5 mg tablet 5 mg PO Q4H PRN PRN Pain Score 05/28/25 05/30/25 Rx 4-10 #0 tabs ampicillin-sulbactam 3 gram 3 g IV Q8H 07/13/25 07/13/25 History intravenous solution levofloxacin 250 mg tablet 250 mg PO DAILY 07/13/25 07/13/25 History pregabalin 100 mg capsule (Lyrica) 100 mg PO TID 07/13/25 07/13/25 History sucralfate 1 gram tablet (Carafate) 1 g PO TID 07/13/25 07/13/25 History vancomycin 1,000 mg intravenous 1 g IV .q24 07/13/25 07/13/25 History injection Allergy/AdvReac Type Severity Reaction Status Date / Time Sulfa (Sulfonamide Allergy Unknown Verified 07/10/25 09:07 Antibiotics) Family History Father CAD (coronary artery disease) Heart disease Hypertension CVA (cerebral vascular accident) Mother COPD (chronic obstructive pulmonary disease) Hypertension Heart disease Heart failure Surgical History History of cardiac catheterization History of colonoscopy History of foot surgery History of repair of left rotator cuff History of total left knee replacement (~2014) History of angioplasty of peripheral vessel (~2012) amputation left toe History of left heart catheterization (~01/20/14) Social History household members: none Smoking Status: Former smoker how long ago did patient quit smokin years ago alcohol intake: never substance use type: does not use caffeine: No Review of Systems (Anesthesia) ROS Narrative System reviewed and no additional complaints, except as documented.
[2025-07-13 17:00] VITALS: BP 123/66; BP 142/48; PULSE 69; RESP 16; TEMP 36.3; O2SAT 100
--- NOTE | 2025-07-13 17:00 | COLBX_PTH ---
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 Ortega Yanez DO : 1950 BED: DIS: 07/13/2025 SPEC #: [id number] RECD: 07/13/25 17:36 STATUS: DALJIT REFaustina #: [id number] MARIELLE: 07/13/25 17:[address]: Ortega Yanez DEPT: SURGICAL PATHOLOGY RECD BY: Rei Wagner ENTERED: 07/14/25 09:14 SP TYPE: COLON BX RYLEE DR: Dr. Rishi Vasquez DO Tissues: A - Cecum, NOS Procedures: Surgery Specimen Level IV HEADER OPERATION: Colonoscopy, biopsy PRE-OP DIAGNOSIS: Anemia TISSUE SUBMITTED: A- Cecal polyp biopsy MICROSCOPIC DIAGNOSIS A. Cecum, polyp, biopsy: Tubular adenoma. MICROSCOPIC DESCRIPTION Slides are reviewed. GROSS DESCRIPTION A. Received in fixative is one container labeled with the patient's name and designated Cecal polyp biopsy. The specimen consists of four irregular fragments of light weiss soft tissue that measure 0.2 to 0.4 cm. The specimen is totally submitted in one cassette. [place] 07/14/2025 CPT:12608
--- NOTE | 2025-07-13 17:02 | OP.COLON_ITS ---
Patient Name: Gely Fuller Procedure Date: 07/13/2025 4:29 PM Date of : 1950 Age: 75 Procedure: Colonoscopy Indications: Iron deficiency anemia Providers: Ortega Yanez DO Medicines: Monitored Anesthesia Care Patient Profile: This is a 75 year old female. Refer to note in patient chart for documentation of history and physical. Last Colonoscopy: within the past 3 years. Complications: No immediate complications. Procedure: Pre-Anesthesia Assessment: - Prior to the procedure, a History and Physical was performed, and patient medications and allergies were reviewed. The patient is competent. The risks and benefits of the procedure and the sedation options and risks were discussed with the patient. All questions were answered and informed consent was obtained. Patient identification and proposed procedure were verified by the physician in the pre-procedure area. Mental Status Examination: alert and oriented. Airway Examination: normal oropharyngeal airway and neck mobility. Respiratory Examination: clear to auscultation. CV Examination: normal. Prophylactic Antibiotics: The patient does not require prophylactic antibiotics. Prior Anticoagulants: The patient has taken no anticoagulant or antiplatelet agents. ASA Grade Assessment: III - A patient with severe systemic disease. After reviewing the risks and benefits, the patient was deemed in satisfactory condition to undergo the procedure. The anesthesia plan was to use monitored anesthesia care (MAC). Immediately prior to administration of medications, the patient was re-assessed for adequacy to receive sedatives. The heart rate, respiratory rate, oxygen saturations, blood pressure, adequacy of pulmonary ventilation, and response to care were monitored throughout the procedure. The physical status of the patient was re-assessed after the procedure. After I obtained informed consent, the scope was passed under direct vision. Throughout the procedure, the patient's blood pressure, pulse, and oxygen saturations were monitored continuously. The Colonoscope was introduced through the anus and advanced to the cecum, identified by appendiceal orifice and ileocecal valve. The colonoscopy was performed without difficulty. The patient tolerated the procedure well. The quality of the bowel preparation was adequate. The ileocecal valve, appendiceal orifice, and rectum were photographed. Scope In: 4:38:46 PM Scope Withdrawal Time 0 hours 10 minutes 19 seconds Scope Out: 4:53:16 PM Total Procedure Duration Time 0 hours 14 minutes 30 seconds Findings: The perianal and digital rectal examinations were normal. Stool was found in the rectum, in the sigmoid colon, in the descending colon and in the cecum. Multiple small-mouthed diverticula were found in the recto-sigmoid colon, sigmoid colon and descending colon. Diffuse moderate inflammation was found in the recto-sigmoid colon, in the sigmoid colon, in the descending colon, in the ascending colon and in the cecum. Coagulation for hemostasis using argon plasma at 0.3 liters/minute and 20 murillo was successful. Estimated blood loss was minimal. A 7 mm polyp was found in the cecum. The polyp was sessile. The polyp was removed with a jumbo cold forceps. Resection and retrieval were complete. Impression: - Stool in the rectum, in the sigmoid colon, in the descending colon and in the cecum. - Diverticulosis in the recto-sigmoid colon, in the sigmoid colon and in the descending colon. - Diffuse moderate inflammation was found in the recto-sigmoid colon, in the sigmoid colon, in the descending colon, in the ascending colon and in the cecum secondary to ischemic colitis. Treated with argon plasma coagulation (APC). - One 7 mm polyp in the cecum, removed with a jumbo cold forceps. Resected and retrieved. Recommendation: - Await pathology results. - Repeat colonoscopy in 1 year for surveillance. - Continue present medications. Procedure Code(s): --- Professional --- 76968, 59, Colonoscopy, flexible; with control of bleeding, any method 32168, Colonoscopy, flexible; with biopsy, single or multiple CPT copyright 2021 [employer]. All rights reserved. The codes documented in this report are preliminary and upon supervisor game farm review may be revised to meet current compliance requirements. Ortega Yanez DO 07/13/2025 5:02:08 PM This report has been signed electronically. Number of Addenda: 0 Note Initiated On: 07/13/2025 4:29 PM
--- NOTE | 2025-07-13 17:03 | OP.PROVAT_ITS ---
07/13/2025 Rishi Vasquez [address] [place] [address] Re : Colonoscopy procedure for Gely Fuller Dear Dr. Vasquez This procedure was performed on Sunday, July 13, 2025. My impressions and recommendations are as follows: Impressions : - Stool in the rectum, in the sigmoid colon, in the descending colon and in the cecum. - Diverticulosis in the recto-sigmoid colon, in the sigmoid colon and in the descending colon. - Diffuse moderate inflammation was found in the recto-sigmoid colon, in the sigmoid colon, in the descending colon, in the ascending colon and in the cecum secondary to ischemic colitis. Treated with argon plasma coagulation (APC). - One 7 mm polyp in the cecum, removed with a jumbo cold forceps. Resected and retrieved. Recommendations : - Await pathology results. - Repeat colonoscopy in 1 year for surveillance. - Continue present medications. My findings are described in the full procedure note, which is enclosed. If I can be of further assistance, please feel free to contact me at . Sincerely, Ortega Yanez, 07/13/2025 5:02:08 PM This report has been signed electronically.
[2025-07-13 17:05] VITALS: BP 133/60; BP 142/48; PULSE 91; RESP 16; O2SAT 100
[2025-07-13] MEDS: Lactated Ringers 500 ML IV (17:07)
[2025-07-13 17:10] VITALS: BP 142/48; BP 144/76; PULSE 65; RESP 16; O2SAT 100
[2025-07-13 17:15] VITALS: BP 140/60; BP 142/48; PULSE 64; RESP 16; TEMP 36.4; O2SAT 100
[2025-07-13 17:41] VITALS: BP 107/64; PULSE 86; RESP 16; TEMP 37.1; O2SAT 99
--- NOTE | 2025-07-13 17:41 | PCM.POST.ANE ---
Anesthesia: Postop Eval I Current Vital Signs Temperature: 98.8 F Pulse Rate: 86 Blood Pressure: 107/64 Respiratory Rate: 16 Pulse Ox: 99 Assessment Airway patent: Yes Spontaneous unlabored respirations: Yes nausea: No Vomiting: No Anesthesia Complication: No Fluid Hydration Crystalloid volume administer (ml): 500 Total IV fluid infused: 500 Progress Note Anesthesia document: Postop Eval 1 completed: Yes
--- OUTSIDE RECORDS SUMMARY | 2025-07-13 17:55 | XMS RPT_ITS | CCD ---
Author Organization [facility] Care Team Providers Care Clinical Engineer Name Role Phone DeFinvenkata, Harumi Y Unavailable Unavailable Lila PENNINGTON, Aileen Peterson Unavailable Unavailable Ray Ochoa Unavailable Unavailable Kwaku Moscoso MD Unavailable Sukumar LUNDBERG, Marly Villavicencio Unavailable Lucía BARAJAS, Rebekah Villavicencio Unavailable Gaye Jasmine Unavailable Unavailable Shaina Serna LPN Unavailable Unavailable Dr. Rishi Vasquez Primary Care Provider Dr. Rishi Vasquez Referring Provider Dr. Kwaku Moscoso Attending Provider Dr. Kwaku Moscoso Other Provider Roof POSTAL SERVICE CLERK, POSTAL SERVICE CLERKFavio Tripathi Attending Provider Rishi Vasquez DO Primary Care Provider Dr. Rishi Vasquez Primary Care Provider Dr. Kwaku Moscoso Attending Provider Dr. Kwaku Moscoso Referring Provider Dr. Rishi Vasquez Referring Provider Rishi Vasquez DO Primary Care Provider Roof POSTAL SERVICE CLERK, YULY Tripathi Attending Provider Dr. Rishi Vasquez Primary Care Provider Dr. Kwaku Moscoso Attending Provider Dr. Kwaku Moscoso Referring Provider Dr. Rishi Vasquez Referring Provider Roof POSTAL SERVICE CLERK, POSTAL SERVICE CLERK-C Rick Tripathi Attending Provider Dr. Rishi Vasquez Primary Care Provider Dr. Rishi Vasquez Referring Provider Dr. Russell Clement Attending Provider [phone] Rishi Vasquez DO Primary Care Provider Dr. Rishi Vasquez Primary Care Provider Dr. Brandon Membreno Referring Provider Pedro, Dr. Blackwell Primary Care Provider Dr. Russell Clement Attending Provider [phone] Brandon Membreno Referring Provider Vasquez, Dr. Blackwell Primary Care Provider Dr. Rishi Vasquez Referring Provider Roof POSTAL SERVICE CLERK, POSTAL SERVICE CLERK-Andrés Tripathi Attending Provider Dr. Kwaku Moscoso Attending [...] Provider Dr. Elyssa Fierro Attending Provider Dmitry SUPERVISOR AGRICULTURAL EDUCATION.Clary FLORES Unavailable Yani Watts APRN.CNP Unavailable Pedro EUCEDA Dr. Rishi Primary Care Provider Vasquez DO, Dr. Blackwell Attending Provider Pedro DO, Dr. Blackwell Referring Provider Haseeb DPM, Dr. Taylor Attending Provider Haseeb DPM, Dr. Taylor Referring Provider Irene DPM, Dr. Sweeney Attending Provider Urbano LUNDBERG, Dr. Wells Attending Provider Jamal DPM, Dr. Wagnoer Attending Provider Jamal DPM, Dr. Wagoner Referring [...] Servando LUNDBERG, Dr. Phong Benítez Referring Provider 1([facility])[phone] Macarena PA, Abena Other Provider Servando LUNDBERG, Dr. Phong Benítez Other Provider Urbano LUNDBERG, Dr. Wells Referring Provider 1([facility])[phone] Pedro EUCEDA, Dr. Blackwell Primary Care Provider [phone] Pedro EUCEDA, Dr. Blackwell Attending Provider 1([facility] )[phone] Pedro EUCEDA, Dr. Blackwell Referring Provider Haseeb DPM, Dr. Taylor Attending Provider Haseeb DPM, Dr. Taylor Referring Provider Pedro EUCEDA, Dr. Blackwell Primary Care Provider Pedro DO, Dr. Blackwell Attending Provider 1([facility] )[phone] Pedro DO, Dr. Blackwell Referring Provider 1([facility] )[phone] Macarena VYAS, Abena Referring Provider 1([facility])[phone] Pedro EUCEDA, Dr. Blackwell Primary Care Provider Teto STEVENSONM, Dr. Sweeney Attending Provider Víctor LUNDBERG, Dr. Wagoner Attending Provider 1([facility])[phone] Víctor LUNDBERG, Dr. Wagoner Referring Provider 1([facility])[phone] Pedro EUCEDA, Dr. Blackwell Primary Care Provider Urbano LUNDBERG, Dr. Wells Attending Provider 1([facility])[phone] [facility] POSTAL SERVICE CLERK-CRick Attending Provider 1([facility])[phone] Chandra SUPERVISOR AGRICULTURAL EDUCATION.FOURDRINIER WIRE WEAVER, Ld Chato Unavailable Kb LUNDBERG, Dr. Wheat Attending Provider Kb LUNDBERG, Dr. Wheat Referring Provider Kb LUNDBERG, Dr. Wheat Other Provider 1([facility])[phone] Pedro EUCEDA, Dr. Blackwell Primary Care Provider Pedro EUCEDA, Dr. Blackwell Attending Provider Pedro EUCEDA, Dr. Blackwell Referring Provider 1([facility] )[phone] Jamal DPM, Dr. Wagoner Attending Provider Jamal [...] VYAS, Abena Other Provider Servando LUNDBERG, Dr. hPong Benítez Other Provider Urbano LUNDBERG, Dr. Wells Referring Provider Macarena VYAS, Abena Referring Provider Víctor LUNDBERG, Dr. Wagoner Attending Provider Dr. Ciaran Renee MD Referring Provider Rubio BARAJAS-Rick Bowen Attending Provider Kb LUNDBERG, Dr. Wheat Attending Provider Kb LUNDBERG, Dr. Jarret Referring Provider Kb LUNDBERG, Dr. Wheat Other Provider Jonathan EUCEDA, Dr. Guthrie Referring Provider Jonathan EUCEDA, Dr. Guthrie Emergency Provider Shonda LUNDBERG, Dr. Maddie Lawrence Attending Provider Tres EUCEDA, Dr. Jennings Attending Provider [phone] Fabián [...] 45 Xavier LUNDBERG, Dr. Russ Other Provider [phone] Ernesto LUNDBERG, Dr. Srpinger Other Provider [phone] Barb LUNDBERG, Dr. Mcpherson Other Provider [phone] Adal LUNDBERG, Dr. Mathew Other Provider [facility] prosper Villalobos MD, Dr. Meneses Other Provider Yomi LUNDBERG, Dr. Eugene Other Provider [phone] Lyric LUNDBERG, Dr. Velazquez Other Provider Dr. Jonathan Barber MD Other Provider Dr. Lavell Rodriges DO Other Provider [phone] Jennifer LUNDBERG, Dr. Fabian Other Provider Segun LUNDBERG, Dr. Sweet Other Provider Dr. Andrew Patel DO Other Provider Zachary LUNDBERG, Dr. Huff Other Provider Mark LUNDBERG, Dr. Delarosa Other Provider Tres EUCEDA, Dr. Jennings Other Provider Dashawn EUCEDA, Dr. Casey Attending Provider Fabián LUNDBERG, Dr. Larson Other Provider Beata LUNDBERG, Dr. Gonzalez Other Provider Billy LUNDBERG, Dr. Da Silva Other Provider Dashawn EUCEDA, Dr. Casey Other Provider Kisha LUNDBERG, Dr. Christos Correa Other Provider [phone] Abilio LUNDBERG, Dr. Graham Other Provider [phone] Jessica LUNDBERG, Dr. Gilmore Other Provider Rickey LUNDBERG, Dr. Jolly Other Provider [phone] Adan LUNDBERG, Dr. Gomez Other Provider [phone] Xavier LUNDBERG, Dr. Russ Other Provider [phone] Dr. Gian Orozco MD Other Provider Barb LUNDBERG, Dr. Mcpherson Other Provider Adal LUNDBERG, Dr. Mathew Other Provider Unavailabl prosper Villalobos MD, Dr. Meneses Other Provider [phone] Yomi LUNDBERG, Dr. Eugene Other Provider Dr. Marcus Gunter MD Other Provider [phone] Elisabeth LUNDBERG, Dr. Castillo Other Provider Dr. Lavell Rodriges DO Other Provider [phone] Caren Rodriguez MD Other Provider [phone] Segun LUNDBREG, Dr. Sweet Other Provider [phone] Andrew Patel DO Other Provider Dr. Refugio Sharma MD Other Provider Mark LUNDBERG, Dr. Delarosa Other Provider [phone] Andry EUCEDA, Dr. Shelby Emergency Provider Lakeisha EUCEDA, Dr. Ladd Admit Provider Lakeisha EUCEDA, Dr. Ladd Attending Provider Lakeisha EUCEDA, Dr. Ladd Referring Provider Lakeisha EUCEDA, Dr. Ladd Other Provider Shonda LUNDBERG, Dr. Maddie Lawrence Attending Provider Cristhian LUNDBERG, Dr. Sher Attending Provider Unavaila ble Shonda LUNDBERG, Dr. Maddie Lawrence Attending Provider Cristhian LUNDBERG, Dr. Sher Other Provider Unavailable Pedro EUCEDA, Dr. Blackwell Primary Care Provider [phone] Pedro EUCEDA, Dr. Blackwell Attending Provider Pedro EUCEDA, Dr. Blackwell Referring Provider Lakeisha EUCEDA, Dr. Ladd Referring Provider Beau EUCEDA, Dr. Vivas Attending Provider Beau EUCEDA, Dr. Vivas Other Provider [phone] Lakeisha EUCEDA, Dr. Ladd Referring Provider Dr. Shahnaz Bishop DO Emergency Provider Dr. Rishi Vasquez DO Primary Care Provider Dr. Rishi Vasquez DO Attending Provider Pedro EUCEDA, Dr. Blackwell Referring Provider Dr. Shahnaz Bishop DO Attending Provider Dr. Rishi Vasquez DO Primary Care Provider [phone] Urbano LUNDBERG, Dr. Wells Admit Provider Dr. Kwaku Tierney MD Attending Provider RISHI VASQUEZ Attending Unavailable RISHI VASQUEZ Primary Care Unavailable YUMIKO WHITEHEAD Attending Unavailable RISIH VASQUEZ Primary Care Unavailable LD ARTIS Attending Unavailable VASQUEZ, RISHI L Primary Care Unavailable VASQUEZ, RISHI L Primary Care Unavailable VASQUEZ, RISHI L Referring Unavailable VASQUEZ, RISHI L Primary Care Unavailable Vasquez , Dr. Blackwell Primary Care Provider Tremayne LUNDBERG, Dr. Ames Other Provider Teto DPM, Dr. Sweeney Other Provider Abena Baxter Attending Provider [phone] Urbano LUNDBERG, Dr. Wells Attending Provider [phone] Urbano LUNDBERG, Dr. Wells Other Provider [phone] Shonda LUNDBERG, Dr. Maddie Lawrence Admit Provider Shonda LUNDBERG, Dr. Maddie Lawrence Other Provider Urbano LUNDBERG, Dr. Wells Admit Provider [phone] Fernando Vogel MD Attending Provider Vasquez, Rishi Primary Care Unavailable Servando, Phong Chi Referring Unavailable Servando, Phong Chi Attending Unavailable Vasquez, Rishi Primary Care Unavailable Patel Irene Consulting Unavailable Maddie Merchant Referring Unavailable Ke, Broderick Attending Unavailable Shonda Maddie L Admitting Unavailable Tanphaichitr, Natthavat Consulting Unavaila ble Russell Clement Consulting Unavailable Maddie Merchant L Consulting Unavailable Kwaku Mendoza Unavailable Vasquez, Rishi Primary Care Unavailable Urbano, Russell Attending Unavailable Urbano, Russell Referring Unavailable Antlers, Russell Admitting Unavailable Vasquez, Rishi Primary Care Unavailable Ortega Yanez Attending Unavailable Vasquez, Rishi Referring Unavailable Vasquez, [...] Referring Unavailable Servando, Phong Chi Admitting Unavailable Kwaku Mendoza Consulting Unavailable Servando, Phong Chi Attending Unavailable Patel Irene Consulting Unavailable Abena Fiore Consulting Unavailable Vasquez, Rishi Primary Care Unavailable Urbano, Russell Attending Unavailable Russell Clement Referring Unavailable Vasquez, Risih Primary Care Unavailable Ciaran Renee Attending Unavailable Ciaran Renee Referring Unavailable Vasquez, Rishi Primary Care Unavailable Kb, Jarret Referring Unavailable Kb, Jarret Attending Unavailable Vasquez, Rishi Referring Unavailable Vasquez, Rishi Attending Unavailable Vasquez, Rishi Primary Care Unavailable Brandon Membreno Attending Unavailable Brandon Membreno Referring Unavailable Vasquez, Rishi Primary Care Unavailable Patel Irene Attending Unavailable Vasquez, Rishi Primary Care Unavailable Ciaran Berry Attending Unavailable Ciaran Berry Referring Unavailable Vasquez, Rishi Primary Care Unavailable Ungur, Remus Referring Unavailable Vasquez, Rishi Primary Care Unavailable Maddie Merchant Consulting Unavailable Michaela Joshua Attending Unavailable Maddie Merchant Admitting Unavailable Neo Lockwood Consulting Unavailable Carlos Cota Consulting Unavailable Avinash Cervantes Consulting Unavailable Jacinto Tamez Consulting Unavailable Christos Beard Consulting Unavailable Santos Knox Consulting Unavailable Mando Lopez Consulting Unavailable Shanae Lang Consulting UnavailJason Resendez Consulting Unavailable Jeb Park Consulting Unavailable Gian Orozco Consulting Unavailable Vida Day Consulting Unavailable AlQuincy nam Consulting Unavailable VillalobosZaira flores Consulting Unavailable YomiCharity lintontam Consulting Unavailable Marcus Gunter Consulting Unavailable ElisabethJonathan ling Consulting Unavailable Ese Rodrigeskhdeep Consulting Unavailable Caren Rodriguez Consulting Unavailable Kee Cast Consulting Unavailable Andrew Patel Consulting Unavailable Refugio Sharma Consulting Unavailable Washington Flores Consulting Unavailable Patel Irene Consulting Unavailable Russell Clement Consulting Unavailable Kwaku Mendoza Consulting Unavailable Michaela Joshua Consulting Unavailable Russell Clement Attending Unavailable Jacinto Tamez Attending Unavailable Vasquez, Rishi Primary Care Unavailable Kb, Jarret Referring Unavailable KbCloverd Attending Unavailable Kb, Jarret Consulting Unavailable Vasquez, Rishi Primary Care Unavailable Vasquez, Rishi Referring Unavailable FriendOrtega Attending Unavailable FriendOrtega Consulting Unavailable Patel Irene Consulting Unavailable Vasquez, Rishi Primary Care Unavailable Maddie Merchant Referring Unavailable Broderick Dempsey Attending Unavailable Maddie Merchant Admitting Unavailable Tanphaichitr, Natthavat Consulting Unavaila ble Antlers, Russell Consulting Unavailable White, Maddie L Consulting Unavailable Vasquez, Rishi Primary Care Unavailable Fiore, Abena Attending Unavailable Servando, Phong Chi Referring Unavailable Servando, Phong Chi Admitting Unavailable Kwaku Mendoza Consulting Unavailable Patel Irene Consulting Unavailable Fiore, Abena Consulting Unavailable Servando, Phong Chi Consulting Unavailable Vasquez, Rishi Primary Care Unavailable Antlers, Russell Attending Unavailable Urbano, Russell Referring Unavailable Antlers, Russell Consulting Unavailable Vasquez, Rishi Referring Unavailable Vasquez, Rishi Primary Care Unavailable Fiore, Abena Attending Unavailable Vasquez, Rishi Referring Unavailable Vasquez, Rishi Primary Care Unavailable Fernando Vogel Attending Unavailable Vasquez, Rishi Referring Unavailable Vasquez, Rishi Primary Care Unavailable Fiore, Abena Attending Unavailable Vasquez, Rishi Primary Care Unavailable Urbano, Russell Consulting Unavailable Urbano, Russell Referring Unavailable Urbano, Russell Admitting Unavailable Kwaku Tierney Attending Unavailable Urbano, Russell Attending Unavailable Vasquez, Rishi Referring Unavailable Vasquez, Rishi Primary Care Unavailable Macarena, Abena Attending Unavailable Brandon Membreno Referring Unavailable Brandon Membreno Attending Unavailable Vasquez, Rishi Primary Care Unavailable Vasquez, Rishi Primary Care Unavailable Servando, Phong Chi Referring Unavailable Servando, Phong Chi Attending Unavailable Vasquez, Rishi Primary Care Unavailable Fiore, Abena Referring Unavailable Fiore Abena Attending Unavailable Vasquez, Rishi Referring Unavailable [...] Primary Care Unavailable Irene, Patel Consulting Unavailable Servando, Phong Chi Attending Unavailable Servando, Phong Chi Admitting Unavailable Tremayne, Kwaku Consulting Unavailable Fiore, Abena Consulting Unavailable Mosteller, Wilberto Consulting Unavailable Mosteller, Wilberto Admitting Unavailable Mosteller, Wilberto Referring Unavailable Vasquez, Rishi Primary Care Unavailable Christos Morrow Attending Unavailable Tres, Michaela Consulting Unavailable Irene, Patel Consulting Unavailable Antlers, Russell Consulting Unavailable White, Maddie L Consulting Unavailable Vasquez, Rishi Primary Care Unavailable Irene, Patel Attending Unavailable Irene, Patel Referring Unavailable Vivian Gastelums Attending Unavailable PraktonDonCurtis Referring Unavailable Vasquez, Rishi Primary Care Unavailable Ungur, Remus Referring Unavailable Vasquez, Rishi Primary Care Unavailable White, Maddie L Consulting Unavailable Tres, Michaela Attending Unavailable White, Maddie L Admitting Unavailable Tremayne, Kwaku Consulting Unavailable Irene, Patel Consulting Unavailable Antlers, Russell Consulting Unavailable Vasquez, Rishi Primary Care Unavailable Urbano, Russell Attending Unavailable Urbano, Russell Referring Unavailable Urbano, Russell Admitting Unavailable Vasquez, Rishi Primary Care Unavailable Urbano, Russell Attending Unavailable Antlers, Russell Referring Unavailable Mosteller, Wilberto Consulting Unavailable Mosteller, Wilberto Admitting Unavailable Mosteller, Wilberto Attending Unavailable Mosteller, Wilberto Referring Unavailable Vasquez, Rishi Primary Care Unavailable Vasquez, Rishi Primary Care Unavailable Fiore, Abena Referring Unavailable Urbano, Russell Attending Unavailable White, Maddie L Attending [facility] Unavailable Mosteller, Wilberto Referring Unavailable Mosteller, Wilberto Consulting Unavailable Mosteller, Wilberto Admitting Unavailable Christos Morrow Attending Unavailable Tres, Michaela Consulting Unavailable Irene, Patel Consulting Unavailable Antlers, Russell Consulting Unavailable White, Maddie L Consulting Unavailable Kitlynettee Christos Consulting Unavailable Antlers, Russell Attending Unavailable Tres, Michaela Attending Unavailable Irene, Patel Consulting Unavailable Tres, Michaela Consulting Unavailable Urbano, Russell Consulting Unavailable White, Maddie L Attending Unavailable Urbano, Russell Attending Unavailable Fiore, Abena Attending Unavailable Tremayne, Kwaku Consulting Unavailable Ke, Broderick Consulting Unavailable Fiore, Abena Attending Unavailable White, Maddie L Attending Unavailable Vasquez, Rishi Referring Unavailable Vasquez, Rishi Primary Care Unavailable Roof POSTAL SERVICE CLERK, Rick Tripathi Attending Unavailable Vasquez, Rishi Referring Unavailable Vasquez, Rishi Primary Care Unavailable Abena Fiore Attending Unavailable Vasquez, Rishi Primary Care Unavailable Patel Irene Consulting Unavailable Ortega Yanez Attending Unavailable Servando, Phong Chi Admitting Unavailable Kwaku Mendoza Consulting Unavailable Servando, Phong Chi Consulting Unavailable Tomer Fioreison Attending Unavailable Macarena Abena Consulting Unavailable Russell Clement Attending Unavailable Brandon Membreno Referring Unavailable Vasquez, Rishi Primary Care Unavailable Vasquez, Rishi Referring Unavailable Vasquez, Rishi Primary Care Unavailable Fernando Vogel Attending Unavailable Vasquez, Rihsi Primary Care Unavailable Shahnaz Bishop Attending Unavailable Vasquez, Rishi Primary Care Unavailable Servando, Phong Chi Referring Unavailable Servando Phong Chi Attending Unavailable Allergies Allergy Classification Reported Allergen(s) Allergy Type Date of Onset Reaction(s) Facility Sulfonamides (antibiotic) (1 source) Sulfonamides (Antibiotic) Drug Allergy 3 Unknown [facility] (10 sources) Sulfonamides (Antibiotic) drug allergy 4 [facility] Work Phone: (20 sources) Sulfonamides (Antibiotic); Translations: [SULFA (SULFONAMIDE ANTIBIOTICS)] Drug Allergy 3 Unknown [facility] (20 sources) Sulfonamides (Antibiotic) Allergy to substance 2 Unknown [facility] Comment on above: doesn't remember/ al lergy noted as a child (1 source) Sulfonamides (Antibiotic) Drug allergy (disorder) 5 [facility] Repository Medications Current Medications Medication Drug Class(es) Dates Sig (Normalized) Sig (Original) 8 hr acetaminophen 650 mg extended release oral tablet (20 sources) Start: 05-08-2025 Start: 03-17-2025 take 2 tablets by [facility] every six hours as needed [...] TYLENOL CAPS a s needed ACETAMINOPHEN CAPS [id number] Kwaku Moscoso MD Start: 09-22-2016 End: 11-22-2016 TYLENOL CAPS as needed 09/22 ACETAMINOPHEN CAPS [id number] Espinoza Burns MA Start: 09-22-2016 TYLENOL CAPS a s needed ACETAMINOPHEN CAPS [id number] Espinoza Burns MA Start: 09-22-2016 End: 11-22-2016 TYLENOL CAPS as needed 09/22 ACETAMINOPHEN CAPS [id number] Espinoza Burns MA Start: 09-22-2016 TYLENOL CAPS a s needed ACETAMINOPHEN CAPS [id number] Espinoza Burns MA take 2 tablets by [...] 1 tablet by wei th once daily. aspirin 81 mg delayed releas e oral tablet (20 sources) Platelet Aggregation Inhibitor, Nonsteroidal Anti-inflammatory Drug Start: 01-05-2014 Start: 01-05-2014 take 1 tablet by wei th once daily ASPIRIN 81 MG TABS One tablet by mouth daily ASPIRIN [id number] Carole Garber RN Start: 06-30-2013 take 1 tablet by wei th once daily at mealtime Aspirin 81 mg Tab Take 1 tablet by mouth once daily. Take with food. 30 tablet 11 06/30/2013 Active Comment on above: Take 1 tablet by wei th once daily. Take with food. Blood [...] on above: Take 1 capsule by mo [facility] twice daily for 7 days. ferrous sulfate 325 mg oral tablet (20 sources) Start: 8 take 1 tablet by mouth once daily Ferrous Sulfate 325 MG tablet Active 325 mg PO DAILY August 15, 2018 12:00am Start: 08-30-2017 take 1 tablet [facility] daily FERROUS SULFATE 325 (65 Fe) MG TABS One tablet by mouth twice daily FERROUS SULFATE [id number] Kwaku Moscsoo MD Comment on above: Take 325 mg [...] 05, 2020 1:00am administer with a meal Cbhwinyc-Dqop-Afn-Folic Acid 18-0.4 mg tab (20 sources) Start: 03-02-2014 take 1 tablet by mouth once daily Farcmlmq-Jojo-Wja-Folic Acid 18-0.4 mg tab Take 1 tablet by mouth once daily. 03/02/2014 Active Start: 03-02-2014 take 1 tablet by wei th once daily Saoaqtoz-Tdmg-Zoq-Folic Acid 18-0.4 mg t ab Take 1 [...] on above: Take 1 capsule by mo [facility] twice daily with meals for 7 days. nystatin 100 unt/mg topical powder (20 sources) Polyene Antifungal Start: 03-17-2025 End: 05-07-2025 Start: 03-17-2025 End: 05-07-2025 [place]ystatin [place] 100,000 un it/gram powder Active 1 NMA [...] 1 capsule by mo uth once daily. Geyser-3 Fatty Acids-Fish Oil (20 sources) Start: 06-29-2016 Geyser-3 Fatty Acids-Fish Oil Active 1 EACH PO DAILY June 29, 2016 1:08pm Start: 06-29-2016 Geyser-3 Fatty Acids-Fish Oil Active 1 EACH PO DAILY June 28, 2016 11:00pm Start: 06-29-2016 Geyser-3 Fatty Acids-Fish Oil Active 1 EACH PO DAILY June 29, 2016 12:00am Geyser-3 Fatty Acids-Fish Oil 1 EACH capsule (11 sources) Start: 06-29-2016 Geyser-3 Fatty Acids-Fish Oil 1 EACH capsule Active 1 NMA PO DAILY June 29, 2016 12:00am oxyCODONE hydrochloride 5 mg oral tablet (9 sources) Opioid Agonist Start: 05-28-2025 pregabalin 100 [...] One tablet by mouth daily AMLODIPINE BESYLATE [id number] YANG RodriguezC Comment on above: Take 1 tablet by [...] One tablet by mouth twice daily CALCIUM [id number] Kwaku Moscoso MD calcium ascorbate 500 mg [...] MG SOLR q 12 hrs CEFTAROLINE FOSAMIL [id number] Shaina Serna LPN ceftaroline fosamil 600 mg injection (20 sources) Start: 11-15-2016 End: 07-23-2018 End: 01-04-2017 TEFLARO 400 MG SOLR q 12 hrs CEFTAROLINE FOSAMIL [id number] Espinoza Burns MA cholecalciferol 0.05 mg oral capsule (20 sources) Vitamin D Start: 05-20-2020 End: 03-07-2025 Start: 05-20-2020 End: 03-07-2025 take 1 capsule by mouth once daily Cholecalciferol (Vitamin D3) 50 mcg (2,000 unit) capsule Discontinued 2000 U PO DAILY August 08, 2022 9:41am March 07, 2025 4:02pm take 1 capsule by mo [facility] once daily Cholecalciferol, Vitamin D3, 25 [...] One tablet by mouth daily CLOPIDOGREL BISULFATE [id number] Brandon Ch MD Comment on above: Take 75 mg by mouth once daily. clotrimazole 10 mg oral lozenge (20 sources) Azole Antifungal Start: 09-20-2016 End: 11-22-2016 CLOTRIMAZOLE 10 MG LOZG 1 tab 5 x a day CLOTRIMAZOLE [id number] Espinoza Jose Angel Grant HAMILTON collagenase 0.25 unt/mg topical ointment (12 sources) Collagen-specific Enzyme Start: 05-21-2025 End: 05-28-2025 [...] CRANBERRY CAPS Cranberry Extract daily CRANBERRY CAPS [id number] Brandon Ch MD Start: 11-25-2014 Cranberry Extr act 300 mg tab Take by mouth. 0 11/25/2014 Active Comment on above: Take by mouth. DOCUSATE SODIUM CAPS (10 sources) Histamine-1 Receptor Antagonist, Nonsteroidal Anti-inflammatory Drug Start: 09-22-2016 STOOL SOFTENER CAPS twice daily DOCUSATE SODIUM CAPS [id number] Espinoza Burns MA Start: 09-22-2016 End: 11-22-2016 STOOL SOFTENER CAPS twice da nhi DOCUSATE SODIUM CAPS [id number] Espinoza Burns MA Start: 09-22-2016 STOOL SOFTENER CAPS twice daily DOCUSATE SODIUM CAPS [id number] Espinoza Burns MA Start: 09-22-2016 End: 11-22-2016 STOOL SOFTENER CAPS twice da nhi DOCUSATE SODIUM CAPS [id number] Espinoza Burns MA docusate sodium 100 mg [...] SOFTENER CAPS twice daily DOCUSATE SODIUM CAPS [id number] Espinoza Burns MA Start: 09-22-2016 STOOL SOFTENER CAPS twice daily DOCUSATE SODIUM CAPS [id number] Espinoza Burns MA doxycycline monohydrate 100 mg oral capsule (20 sources) Tetracycline-class Drug Start: 03-11-2025 End: 05-07-2025 Start: 01-02-2025 End: 03-11-2025 Start: 02-14-2017 End: 06-11-2017 take 1 tablet by mouth twice daily DOXYCYCLINE HYCLATE 100 MG CAPS One tablet by mouth twice daily DOXYCYCLINE HYCLATE [id number] Marly Patino MD estradiol 0.1 mg/ml vaginal [...] MG /GM CREA Take as directed ESTRADIOL [id number] Brandon Ch MD Start: 05-25-2015 ESTRACE 0.1 MG /GM CREA Take as directed ESTRADIOL [id number] Brandon Ch MD Comment on above: Use 1 g vaginally tw ice a week. Use 1 g vaginally tw o times a week. fish oil (5 sources) Start: 09-20-2016 take 1 tablet by mouth once daily OMEGA-3 FISH OIL 300 MG CAPS One tablet by mouth daily OMEGA-3 FATTY ACIDS [id number] Meka I Robert Start: 09-20-2016 take 1 tablet by wei th once daily OMEGA-3 FISH OIL 300 MG CAPS One tablet by mouth daily OMEGA-3 FATTY ACIDS [id number] Meka Vaughanzworski gabapentin 600 mg oral table t (20 [...] Start: 01-05-2014 take 2 tablets by mo [facility] once daily HYDROCHLOROTHIAZIDE 12.5 MG TABS Two tablets by mouth daily HYDROCHLOROTHIAZIDE [id number] Carole Garber RN Comment on above: Take 1 tablet by wei once daily. 3 ml insulin lispro 100 unt/ml pen injector (20 sources) Insulin Analog Start: 5 End: 5 LACTOBACILLUS CAPS (2 sources) Start: 7 take 1 tablet by mouth once daily ACIDOPHILUS CAPS 600 mg. One tablet by mouth daily LACTOBACILLUS CAPS [id number] Kwaku Moscoso MD LACTOBACILLUS CAPS (20 sources) Start: 6 ACIDOPHILUS/PECTIN CAPS 1 tab every night LACTOBACILLUS CAPS [id number] Meka Jones Start: 09-20-2016 End: 11-22-2016 ACIDOPHILUS/PECTIN CAPS 1 ta b every night LACTOBACILLUS CAPS [id number] Espinoza Burns MA Start: 09-20-2016 End: 11-22-2016 ACIDOPHILUS/PECTIN CAPS 1 ta b every night LACTOBACILLUS CAPS [id number] Espinoza Burns MA Start: 09-20-2016 ACIDOPHILUS/PE CTIN CAPS 1 tab every night LACTOBACILLUS CAPS [id number] Meka Jones Start: 07-11-2016 End: 08-31-2016 Start: 07-11-2016 End: 08-31-2016 take 1 tablet by mouth twice daily Acidophilus-Pectin, [place] 1 EACH tablet Discontinued 1 NMA PO TWICE A DAY July 11, 2016 12:00am August 31, 2016 5:49pm Start: 07-11-2016 End: 08-31-2016 Acidophilus-Pectin, [place] D iscontinued 1 EACH PO TWICE A [...] tablet by mouth twice daily METFORMIN HCL [id number] Kwaku Moscoso MD Start: 01-05-2014 End: 07-29-2018 [...] th once daily TOPROL XL 50 MG [id number] (ER) One tablet by mouth daily METOPROLOL SUCCINATE [id number] Brandon Ch MD Start: 01-05-2014 take 1 tablet by wei th once daily METOPROLOL SUCCINATE ER 25 MG [id number] One tablet by mouth daily METOPROLOL SUCCINATE [id number] Carole Garber RN Comment on above: Take 1 tablet by wei once daily. metroNIDAZOLE 500 mg oral tablet (20 sources) Nitroimidazole Antimicrobial Start: 03-11-20 End: 05-07-20 MULTIPLE VITAMIN (10 sources) Start: 01-05-20 take 1 tablet by mouth once daily MULTIVITAMINS TABS One tablet by mouth daily MULTIPLE VITAMIN Carole Graber RN Start: 01-05-2014 take 1 tablet by wei once daily MULTIVITAMINS TABS One tablet by mouth daily MULTIPLE VITAMIN Carole Garber RN Ubcvivto-Gxyp-Hdq-Folic Acid (CENTRUM COMPLETE) 18-0.4 mg tab (12 sources) Start: 03-02-2014 take 1 tablet by mouth once daily Rttehxqx-Irko-Kyj-Folic Acid (CENTRUM COMPLETE) 18-0.4 mg tab Take 1 tablet by mouth once daily. 0 03/02/2014 Active Comment on above: Take 1 tablet by [facility] once daily. naproxen sodium 220 mg oral tablet (20 sources) Nonsteroidal Anti-inflammat ory Drug Start: 01-05-2014 End: 12-29-2014 ALEVE 220 MG TABS as needed NAPROXEN SODIUM [id number] Carole Garber RN nitroglycerin 0.4 mg sublingual tablet (10 sources) Nitrate Vasodilator Start: 01-05-2014 NITROSTAT 0.4 MG SUBL 1 tablet under tongue every 5 min up to 3 X NITROGLYCERIN [id number] Carole Garber RN OMEGA-3 FATTY ACIDS (5 sources) Start: 09-20-2016 take 1 tablet by mouth once daily OMEGA-3 FISH OIL 300 MG CAPS One tablet by mouth daily OMEGA-3 FATTY ACIDS [id number] Meka Jones polysaccharide iron complex 150 mg oral capsule (12 sources) Start: 09-20-2016 End: 08-30-2017 take 1 tablet by mouth once daily FERREX 150 150 MG CAPS One tablet by mouth daily POLYSACCHARIDE IRON COMPLEX [id number] Kwaku Moscoso MD Start: 09-20-2016 take 1 tablet by wei once daily FERREX 150 150 MG CAPS One tablet by mouth daily POLYSACCHARIDE IRON COMPLEX [id number] Meka Jones pravastatin sodium 20 mg oral tablet (20 sources) HMG-CoA Reductase Inhibitor Start: 01-05-2014 End: 01-22-2015 take 1 tablet by mouth once daily PRAVASTATIN SODIUM 20 MG TABS One tablet by mouth daily PRAVASTATIN SODIUM [id number] Carole Garber RN senokot-s (2 sources) Start: 08-30-2017 take 1 tablet by mouth twice daily STOOL SOFTENER 100 MG TABS One tablet by mouth twice daily DOCUSATE SODIUM [id number] Kwaku Moscoso MD vancomycin 50 mg/ml injectable solution (20 sources) Glycopeptide Antibacterial Start: 09-20-2016 End: 11-22-2016 take 1000 mg intravenous route every twenty-four hours VANCOMYCIN HCL 1000 MG SOLR IV Q24 hours for 38 days VANCOMYCIN HCL [id number] Meka Jones Problems Active Problems Problem Classification Problem Date Documented Da te Episodic/Chronic Acquired foot deformities (20 sources) Acquired hallux valgus; Translations: [Hallux valgus (acquired), right foot] 02-28-2019 Chronic Acquired foot deformities (20 sources) Hammer toe; Translations: [Other hammer toe(s) (acquired), left foot] 02-28-2019 Chronic Acquired foot deformities (20 sources) Deformity of toe; Translations: [Acquired deformities of toe(s), unspecified, unspecified foot] 05-28-2020 Episodic Adjustment disorders (20 sources) Reactive depression [...] disease (20 sources) Atherosclerotic heart disease of [place] coronary artery without angina pectoris; Translations: [Coronary [...] unspecified] 03-11-2025 Episodic Deficiency and other anemia (6 sources) Chronic anemia; Translations: [Anemia, unspecified] 06-11-2025 [...] primary service as well. E Codes: Fall (14 sources) Fall; Translations: [Unspecified fall, initial encounter] Onset: 5 05-22-2025 Episodic Essential hypertension (20 sources) Hypertensive disorder; Translations: [Essential hypertension] Onset: 3 Resolved: 6 01-05-2014 Chronic Comment on above: Blood pressure is ad equately controlled in her home environment in the office today 142/71 at home this morning it was 109/55 CONTROLLED WITH MED Fluid and electrolyte disorders (20 sources) Dehydration; Translations: [Dehydration] 05-18-2025 Episodic Gangrene (20 sources) Atherosclerosis of artery of lower limb; Translations: [Atherosclerosis of [place] arteries of extremities with gangrene, bilateral legs] [...] extension onto dorsum of foot Intestinal infection (11 sources) Clostridium difficile diarrhea; Translations: [Enterocolitis due [...] of unspecified carotid artery] Onset: 5 Chronic Osteoarthritis (20 sources) Arthritis; Translations: [Unspecified osteoarthritis, unspecified site] 12-29-2021 Chronic Other aftercare (1 source) Post-discharge follow-up; Translations: [Encounter for follow-up examination after completed treatment for conditions other than malignant neoplasm] 03-27-2025 Episodic Other aftercare (1 source) Encounter for surgical aftercare following surgery on the circulatory system; Translations: [Encounter for surgical aftercare following surgery on the circulatory system] Onset: 5 Episodic Other and unspecified benign neoplasm (20 [...] [Disorder of arteries and arterioles, unspecified] Onset: Chronic Other circulatory disease (6 sources) Low blood pressure; Translations: [Hypotension, unspecified] 06-11-2025 Episodic Other connective tissue disease (20 sources) Rhabdomyolysis; Translations: [Rhabdomyolysis] 03-07-2025 Episodic Other connective tissue disease (20 sources) Recurrent falls ; Translations: [Repeated falls] 03-07-2025 Episodic Other connective tissue disease (1 source) Falls; Translations: [Repeated falls] 03-27-2025 Episodic Other connective tissue disease (2 sources) Rotator cuff arthropathy of right shoulder; Translations: [Unspecified rotator cuff tear or rupture of right shoulder, not specified as traumatic] 07-10-2025 Episodic Other connective tissue disease (1 source) Pain in left lower leg; Translations: [Pain in left lower leg] Onset: Episodic Other connective tissue disease (1 source) Pain in right arm; Translations: [Pain in right arm] Onset: Episodic Other injuries and conditions due [...] of gait and mobility] 03-27-2025 Episodic Other non-traumatic joint disorders (20 sources) Arthropathy of multiple joints; Translations: [Arthropathy, unspecified] Onset: 1 05-31-2021 Chronic Other non-traumatic joint disorders (12 sources) Charcot's joint of foot; Translations: [Charcot's [...] right shoulder] Episodic Other non-traumatic joint disorders (3 sources) Pain in right shoulder; Translations: [Pain [...] Onset: 3 12-29-2014 Chronic Comment on above: [employer]-Right SFA and Po pliteal Artery 2013PTA-Left SFA 2013 Phlebitis; thrombophlebitis and thromboembolism (7 sources) Deep venous thrombosis of upper extremity; Translations: [Acute embolism and thrombosis of deep veins of right upper extremity] Onset: 5 06-19-2025 Episodic Residual [...] Spondylosis; intervertebral disc disorders; other back problems (16 sources) Degeneration of lumbar intervertebral disc; Translations: [Other intervertebral disc degeneration, lumbar region] Onset: 5 06-04-2024 Chronic Superficial injury; contusion (20 sources) Contusion of hip; Translations: [Contusion of left hip, initial encounter] 03-07-2025 Episodic Thyroid disorders (20 sources) Multinodular goiter; Translations: [Nontoxic multinodular goiter] Onset: 5 08-30-2017 Chronic Unclassified (7 sources) jonathant ric Whitehead NP Unclassified (1 source) Chronic midline [...] tract infection, site not specified] Onset: 05-31-2021 Episodic Past or Other Problems Problem Classification Problem Date Documented Da te Episodic/Chronic Abdominal pain (1 source) Pelvic and perineal pain; Translations: [Pelvic and perineal pain] Onset: 08-25-2024 Episodic Acute and unspecified renal failure (20 sources) Acute renal failure syndrome; Translations: [Acute kidney failure, unspecified] Onset: 03-20-2025 03-07-2025 Episodic Conditions associated with dizziness or vertigo [...] foot, subsequent encounter] Onset: 10-04-2016 10-05-2016 Episodic Open wounds of extremities (20 sources) Open wound of foot; Translations: [Unspecified open wound, unspecified foot, initial encounter] Onset: 02-20-2025 08-19-2018 Episodic Other connective tissue disease (2 sources) [...] of breath] Onset: 01-05-2014 01-05-2014 Episodic Other nervous system disorders (1 source) Unspecified abnormalities of gait and mobility; Translations: [Abnormality of gait] Onset: 03-27-2025 Episodic Other nutritional; endocrine; and metabolic disorders [...] Interpretation Reference Range Facility [facility] at [facility] deOrdered By: Phong Solomon on 07-10-2025 Glucose [Mass/Vol] 91 mg/dL 74-106 [facility] COVID-19 virus antigen assay Ordered By: Phong Solomon on 07-09-2025 SARS-CoV-2 (COVID-19) Ag IA.rapid Ql (Resp) [facility] Absolute lymphocyte countOrd ered By: Phong Solomon on 07-08-2025 Lymphocytes Auto (Unsp spec) [#/Vol] 0.71 10*3/uL Low 0.83-4.51 [facility] Anion gap in Serum or Plasma Ordered By: Phong Solomon on 07-08-2025 Anion gap [Moles/Vol] 11 mmol/L 5-15 [facility] Automated lymphocyte count a s percentage of total leukocytesOrdered By: Phong Solomon on 07-08-2025 Lymphocytes/100 WBC Auto (Unsp spec) 13.1 % Low 19-41 [facility] BUN/creatinine ratioOrdered By: Phong Solomon on 07-08-2025 Urea nitrogen/Creatinine [Mass ratio] 39.6 mg/mg High 10-20 [facility] Basophil percentageOrdered B y: Phong Solomon on 07-08-2025 Basophils/100 WBC (Bld) 0.9 % 0-1 [facility] Carbon dioxide, total [Moles /volume] in Central venous bloodOrdered By: Phong Solomon on 07-08-2025 CO2 [Moles/Vol] 21.2 mmol/L 21.0-32.0 [facility] Chloride assayOrdered By: Addy Solomon on 07-08-2025 Chloride [Moles/Vol] 110 mmol/L High 98-[address] [facility] Eosinophil percentageOrdered By: Phong Solomon on 07-08-2025 Eosinophils/100 WBC (Bld) 8.8 % High 0-5 [facility] Erythrocyte distribution wid th ratioOrdered By: Phong Servando on 07-08-2025 Erythrocyte distribution width (RBC) [Ratio] 16.8 % High 11.6-14.6 [facility] Erythrocyte distribution wid th standard deviationOrdered By: Phong Solomon on 07-08-2025 Erythrocyte distribution width (RBC) [Ratio] 58.1 fl High 35.1-43.9 [facility] Glomerular filtration rate ( GFR) estimation/1.73 sq m using serum, plasma, or whole bOrdered By: Phong Solomon on 07-08-2025 GFR/1.73 sq M.predicted among non-blacks MDRD (S/P/Bld) [Vol rate/Area] 53 mL/min/{1.73_m2} Low >60 [facility] Hematocrit Auto (Bld) [Volum e fraction]Ordered By: Phong Solomon 07-08-2025 Hematocrit (Bld) [Volume fraction] 21.8 % Low 37-47 [facility] Hemoglobin measurementOrdere d By: Phong Solomon 07-08-2025 Hemoglobin (Bld) [Mass/Vol] 6.6 g/dL Low 12.0-15.0 [facility] Immature granulocytes/100 WB C Auto (Bld)Ordered By: Phong Solomon 07-08-2025 Immature granulocytes/100 WBC (Bld) 0.200 % 0.0-0.9 [facility] MCV (mean corpuscular volume ) determinationOrdered By: Phong Solomon 07-08-2025 MCV (RBC) [Entitic vol] 94.4 fL 81-99 [facility] Mean corpuscular hemoglobin (MCH) determinationOrdered By: Phong Solomon 07-08-2025 MCH (RBC) [Entitic mass] 28.6 pg 27.0-32.0 [facility] Monocyte percentageOrdered B y: Phong Solomon on 07-08-2025 Monocytes/100 WBC (Bld) 14.0 % High 0-10 [facility] Neutrophil percentageOrdered By: Phong Solomon 07-08-2025 Neutrophils/100 WBC (Bld) 63.0 % 47-70 [facility] Platelet countOrdered By: Addy Solomon on 07-08-2025 Platelets (Bld) [#/Vol] 142 10*3/uL Low 150-450 [facility] Potassium measurement (mass/ volume)Ordered By: Phong Solomon on 07-08-2025 Potassium (Unsp spec) [Mass/Vol] 4.4 mmol/L 3.3-5.1 [facility] RBC Auto (Bld) [#/Vol]Ordere d By: Phong Solomon on 07-08-2025 RBC (Bld) [#/Vol] 2.31 10*6/uL Low 4.2-5.4 [facility] Serum creatinine measurement (mass/volume)Ordered By: Phong Solomon on 07-08-2025 Creatinine [Mass/Vol] 1.10 mg/dL 0.70-1.20 [facility] Serum glucose measurement (m ass/volume)Ordered By: Phong Solomon on 07-08-2025 Glucose [Mass/Vol] 112 mg/dL High 70-99 [facility] Serum or plasma calcium natalia urement (mass/volume)Ordered By: Phong Solomon on 07-08-2025 Calcium [Mass/Vol] 8.5 mg/dL 7.6-11.0 [facility] Serum or plasma urea nitroge n measurement (mass/volume)Ordered By: Phong Solomon on 07-08-2025 Urea nitrogen [Mass/Vol] 44 mg/dL High 4-19 [facility] Sodium levelOrdered By: Phong Solomon on 07-08-2025 Sodium [Moles/Vol] 142 mmol/L 133-145 [facility] Stool gastrointestinal hemog lobin detection by immunologic methodOrdered By: Phong Solomon on 07-08-2025 Lower GI hemoglobin IA Ql (Stl) Positive Abnormal [facility] White blood cell (WBC) count Ordered By: Phong Solomon on 07-08-2025 WBC (Bld) [#/Vol] 5.4 10*3/uL 4.4-11.0 [facility] Trough vancomycin levelOrder ed By: Phong Solomon on 07-07-2025 Vancomycin trough [Mass/Vol] 14.9 ug/mL 5.0-15.0 [facility] Serum or plasma vancomycin m easurement (mass/volume)Ordered By: Kwaku Mendoza on 07-03-2025 Vancomycin [Mass/Vol] 16.8 ug/mL High 0.0-15.0 [facility] CNPN Telephone (VASSMN) -------- GELY FULLER ([id number]) 1950 F Date Time Provider Department 07/01/25 ELIAS CROCKER During your visit today, we recorded the following information about you: Leatha Johansen RN 07/01/2025 8:52 AM Signed Spoke to Jeannie at [facility] ([phone]) who reported that the pt was referred to Dr. Crocker by Dr. Clement due to pt having a complex finding. Jeannie given scheduling number to make an appointment for pt to see Dr. Crocker. Jeannie verbalized that she will schedule an appointment. Spoke to Rachel at [facility] (where Dr. Clement practices. [phone]) who reported that she will get the pts imaging (CTA with runoff) pushed to pts [facility] chart for Dr. Crocker to view when pt has her appointment with him. Allergies As of Date: 07/01/2025 Noted Allergy Reaction SULFA (SULFONAMIDE ANTIBIOTICS) 01/13/2013 16 - Unknown Comments: childhood Date Reviewed: 04/30/2025 Reviewed by: Joanie Rosario, ANGELO - Fully Assessed Prescriptions as of 07/01/2025 - glimepiride (AMARYL) 2 mg tablet Take [...] 1 tablet by mouth once daily. - Fnluhrye-Qorz-Wvm-Folic Acid 18-0.4 mg tab Take 1 tablet by mouth once daily. - omega-3 fatty acids 1,000 mg cap Take 1 capsule by mouth once daily. - Aspirin 81 mg Tab Take 1 tablet by mouth once daily. Take with food. Problem List As Of Date 07/01/2025 Noted Resolved Peripheral vascular occlusive disease [I73.9] [...] [L72.3, L08.9] 02/26/2019 Coronary artery disease involving [place] heart *05/28/2019 Abnormal urine odor [R82.90] 05/28/2019 [...] screening mammogram for malignant*12/05/2024 Encounter Status:Closed by LEATHA JOHANSEN on 07/01/25 Normal [facility] Blood base excess determinat ionOrdered By: Russell Clement on 06-30-2025 Base excess Calc (BldV) [Moles/Vol] 4 mmol/L High -2-2 [facility] Blood bicarbonate measuremen tOrdered By: Russell Clement on 06-30-2025 HCO3 (Bld) [Moles/Vol] 27.7 mmol/L High 22-26 [facility] Glucose [facility] at [facility] deOrdered By: Russell Clement on 06-30-2025 Glucose [Mass/Vol] 94 mg/dL 74-106 [facility] Glucose measurement at [facility] deOrdered By: Phong Solomon on 06-30-2025 Glucose [Mass/Vol] 72 mg/dL Low 74-106 [facility] Measurement, pHOrdered By: Prosper Clement on 06-30-2025 pH (Unsp spec) 7.48 [pH] High 7.35-7.45 [facility] No Panel InformationOrdered By: Russell Clement on 06-30-2025 ART [facility] Total carbon dioxide measure mentOrdered By: Russell Clement on 06-30-2025 CO2 [Moles/Vol] 29 mmol/L [facility] Glucose measurement at bedsi deOrdered By: Phong Solomon on 06-29-2025 Glucose [Mass/Vol] 86 mg/dL 74-106 [facility] Hematocrit Auto (Bld) [Volum e fraction]Ordered By: Abena Fiore on 06-29-2025 Hematocrit (Bld) [Volume fraction] 26.4 % Low 37-47 [facility] Hemoglobin measurementOrdere d By: Abena Fiore on 06-29-2025 Hemoglobin (Bld) [Mass/Vol] 8.3 g/dL Low 12.0-15.0 [facility] Trough vancomycin levelOrder ed By: Kwaku Mendoza on 06-28-2025 Vancomycin trough [Mass/Vol] 19.9 ug/mL High 5.0-15.0 [facility] Absolute lymphocyte countOrd ered By: Phong Solomon on 06-23-2025 Lymphocytes Auto (Unsp spec) [#/Vol] 1.13 10*3/uL 0.83-4.51 [facility] Anion gap in Serum or Plasma Ordered By: Phong Solomon on 06-23-2025 Anion gap [Moles/Vol] 9 mmol/L 5-15 [facility] Automated lymphocyte count a s percentage of total leukocytesOrdered By: Phong Solomon on 06-23-2025 Lymphocytes/100 WBC Auto (Unsp spec) 24.8 % 19-41 [facility] BUN/creatinine ratioOrdered By: Phong Solomon on 06-23-2025 Urea nitrogen/Creatinine [Mass ratio] 46.7 mg/mg High 10-20 [facility] Basophil percentageOrdered B y: Phong Solomon on 06-23-2025 Basophils/100 WBC (Bld) 1.5 % High 0-1 [facility] Carbon dioxide, total [Moles /volume] in Central venous bloodOrdered By: Phong Solomon on 06-23-2025 CO2 [Moles/Vol] 23.0 mmol/L 21.0-32.0 [facility] Chloride assayOrdered By: Addy Solomon on 06-23-2025 Chloride [Moles/Vol] 112 mmol/L High 98-108 [facility] Eosinophil percentageOrdered By: Phong Solomno on 06-23-2025 Eosinophils/100 WBC (Bld) 9.4 % High 0-5 [facility] Erythrocyte distribution wid th ratioOrdered By: Phong Solomon on 06-23-2025 Erythrocyte distribution width (RBC) [Ratio] 16.8 % High 11.6-14.6 [facility] Erythrocyte distribution wid th standard deviationOrdered By: Phong Solomon on 06-23-2025 Erythrocyte distribution width (RBC) [Ratio] 54.4 fl High 35.1-43.9 [facility] Glomerular filtration rate ( GFR) estimation/1.73 sq m using serum, plasma, or whole bOrdered By: Phong Solomon 06-23-2025 GFR/1.73 sq M.predicted among non-blacks MDRD (S/P/Bld) [Vol rate/Area] 68 mL/min/{1.73_m2} >60 [facility] Immature granulocytes/100 WB C Auto (Bld)Ordered By: Phong Solomon 06-23-2025 Immature granulocytes/100 WBC (Bld) 0.700 % 0.0-0.9 [facility] MCV (mean corpuscular volume ) determinationOrdered By: Phogn Solomon 06-23-2025 MCV (RBC) [Entitic vol] 90.5 fL 81-99 [facility] Mean corpuscular hemoglobin (MCH) determinationOrdered By: Phong Solomon 06-23-2025 MCH (RBC) [Entitic mass] 28.9 pg 27.0-32.0 [facility] Monocyte percentageOrdered B y: Phong Solomon on 06-23-2025 Monocytes/100 WBC (Bld) 12.7 % High 0-10 [facility] Neutrophil percentageOrdered By: Phong Solomon 06-23-2025 Neutrophils/100 WBC (Bld) 50.9 % 47-70 [facility] Platelet countOrdered By: Addy Solomon on 06-23-2025 Platelets (Bld) [#/Vol] 176 10*3/uL 150-450 [facility] Potassium measurement (mass/ volume)Ordered By: Phong Solomon on 06-23-2025 Potassium (Unsp spec) [Mass/Vol] 3.7 mmol/L 3.3-5.1 [facility] RBC Auto (Bld) [#/Vol]Ordere d By: Phong Solomon on 06-23-2025 RBC (Bld) [#/Vol] 2.94 10*6/uL Low 4.2-5.4 [facility] Serum creatinine measurement (mass/volume)Ordered By: Phong Solomon on 06-23-2025 Creatinine [Mass/Vol] 0.90 mg/dL 0.70-1.20 [facility] Serum glucose measurement (m ass/volume)Ordered By: Phong Solomon on 06-23-2025 Glucose [Mass/Vol] 78 mg/dL 70-99 [facility] Serum or plasma calcium natalia urement (mass/volume)Ordered By: Phong Solomon on 06-23-2025 Calcium [Mass/Vol] 8.4 mg/dL 7.6-11.0 [facility] Serum or plasma urea nitroge n measurement (mass/volume)Ordered By: Phong Solomon on 06-23-2025 Urea nitrogen [Mass/Vol] 42 mg/dL High 4-19 [facility] Sodium levelOrdered By: Phong Solomon on 06-23-2025 Sodium [Moles/Vol] 144 mmol/L 133-145 [facility] White blood cell (WBC) count Ordered By: Phong Solomon on 06-23-2025 WBC (Bld) [#/Vol] 4.6 10*3/uL 4.4-11.0 [facility] Serum or plasma vancomycin m easurement (mass/volume)Ordered By: Kwaku Mendoza on 06-20-2025 Vancomycin [Mass/Vol] 16.7 ug/mL High 0.0-15.0 [facility] Culture, Fungus 8482on 06-19 CUF Normal [facility] Comment on above: Performed By: #### M 100.3000, M100.4001, M600.2200, M100.2000, M600.2000 ####[facility] [id number] [place], [address] Fungus Stain 8136on 06-19-20 25 FUNST Normal [facility] Comment on above: Performed By: #### M 100.3000, M100.4001, M600.2200, M100.2000, M600.2000 ####[facility] [id number] [place], [address] Glucose measurement at [facility] deOrdered By: Phong Solomon on 06-18-2025 Glucose [Mass/Vol] 164 mg/dL High 74-106 [facility] Serum or plasma vancomycin m easurement (mass/volume)Ordered By: Kwaku Mendoza on 06-18-2025 Vancomycin [Mass/Vol] 17.9 ug/mL High 0.0-15.0 [facility] Hematocrit Auto (Bld) [Volum e fraction]Ordered By: Phong Solomon on 06-17-2025 Hematocrit (Bld) [Volume fraction] 27.7 % Low 37-47 [facility] Hemoglobin measurementOrdere d By: Phong Solomon on 06-17-2025 Hemoglobin (Bld) [Mass/Vol] 9.2 g/dL Low 12.0-15.0 [facility] Trough vancomycin levelOrder ed By: Kwaku Mendoza on 06-17-2025 Vancomycin trough [Mass/Vol] 24.2 ug/mL High 5.0-15.0 [facility] Absolute lymphocyte countOrd ered By: Phong Solomon on 06-16-2025 Lymphocytes Auto (Unsp spec) [#/Vol] 1.03 10*3/uL 0.83-4.51 [facility] Anion gap in Serum or Plasma Ordered By: Phong Solomon on 06-16-2025 Anion gap [Moles/Vol] 9 mmol/L 5-15 [facility] Automated lymphocyte count a s percentage of total leukocytesOrdered By: Phong Solomon on 06-16-2025 Lymphocytes/100 WBC Auto (Unsp spec) 17.7 % Low 19-41 [facility] BUN/creatinine ratioOrdered By: Phong Solomon on 06-16-2025 Urea nitrogen/Creatinine [Mass ratio] 43.4 mg/mg High 10-20 [facility] Basophil percentageOrdered B y: Phong Solomon on 06-16-2025 Basophils/100 WBC (Bld) 1.4 % High 0-1 [facility] Carbon dioxide, total [Moles /volume] in Central venous bloodOrdered By: Phong Solomon on 06-16-2025 CO2 [Moles/Vol] 19.0 mmol/L Low 21.0-32.0 [facility] Chloride assayOrdered By: Addy Solomon on 06-16-2025 Chloride [Moles/Vol] 113 mmol/L High 98-108 [facility] Eosinophil percentageOrdered By: Phong Solomon on 06-16-2025 Eosinophils/100 WBC (Bld) 9.5 % High 0-5 [facility] Erythrocyte distribution wid th ratioOrdered By: Phong Solomon on 06-16-2025 Erythrocyte distribution width (RBC) [Ratio] 15.6 % High 11.6-14.6 [facility] Erythrocyte distribution wid th standard deviationOrdered By: Phong Solomon 06-16-2025 Erythrocyte distribution width (RBC) [Ratio] 50.2 fl High 35.1-43.9 [facility] Glomerular filtration rate ( GFR) estimation/1.73 sq m using serum, plasma, or whole bOrdered By: Phong Solomon on 06-16-2025 GFR/1.73 sq M.predicted among non-blacks MDRD (S/P/Bld) [Vol rate/Area] 54 mL/min/{1.73_m2} Low >60 [facility] Gl[facility] measurement at [facility] deOrdered By: Phong Solomon 06-16-2025 Glucose [Mass/Vol] 213 mg/dL High 74-106 [facility] Hematocrit Auto (Bld) [Volum e fraction]Ordered By: Phong Solomon 06-16-2025 Hematocrit (Bld) [Volume fraction] 23.3 % Low 37-47 [facility] Hemoglobin measurementOrdere d By: Phong Solomon 06-16-2025 Hemoglobin (Bld) [Mass/Vol] 7.4 g/dL Low 12.0-15.0 [facility] Immature granulocytes/100 WB C Auto (Bld)Ordered By: Phong Solomon 06-16-2025 Immature granulocytes/100 WBC (Bld) 0.500 % 0.0-0.9 [facility] MCV (mean corpuscular volume ) determinationOrdered By: Phong Solomon on 06-16-2025 MCV (RBC) [Entitic vol] 88.9 fL 81-99 [facility] Mean corpuscular hemoglobin (MCH) determinationOrdered By: Phong Solomon on 06-16-2025 MCH (RBC) [Entitic mass] 28.2 pg 27.0-32.0 [facility] Monocyte percentageOrdered B y: Phong Solomon on 06-16-2025 Monocytes/100 WBC (Bld) 11.4 % High 0-10 [facility] Neutrophil percentageOrdered By: Phong Solomon on 06-16-2025 Neutrophils/100 WBC (Bld) 59.5 % 47-70 [facility] Platelet countOrdered By: Addy Solomon on 06-16-2025 Platelets (Bld) [#/Vol] 216 10*3/uL 150-450 [facility] Potassium measurement (mass/ volume)Ordered By: Phong Solomon on 06-16-2025 Potassium (Unsp spec) [Mass/Vol] 3.9 mmol/L 3.3-5.1 [facility] RBC Auto (Bld) [#/Vol]Ordere d By: Phong Solomon on 06-16-2025 RBC (Bld) [#/Vol] 2.62 10*6/uL Low 4.2-5.4 [facility] Serum creatinine measurement (mass/volume)Ordered By: Phong Solomon on 06-16-2025 Creatinine [Mass/Vol] 1.09 mg/dL 0.70-1.20 [facility] Serum glucose measurement (m ass/volume)Ordered By: Phong Solomon on 06-16-2025 Glucose [Mass/Vol] 167 mg/dL High 70-99 [facility] Serum or plasma calcium ntaalia urement (mass/volume)Ordered By: Phong Solomon on 06-16-2025 Calcium [Mass/Vol] 8.1 mg/dL 7.6-11.0 [facility] Serum or plasma urea nitroge n measurement (mass/volume)Ordered By: Phong Solomon on 06-16-2025 Urea nitrogen [Mass/Vol] 47 mg/dL High 4-19 [facility] Serum or plasma vancomycin m easurement (mass/volume)Ordered By: Kwaku Mendoza on 06-16-2025 Vancomycin [Mass/Vol] 20.1 ug/mL High 0.0-15.0 [facility] Sodium levelOrdered By: Phong Solomon on 06-16-2025 Sodium [Moles/Vol] 141 mmol/L 133-145 [facility] Stool gastrointestinal hemog lobin detection by immunologic methodOrdered By: Phong Solomon on 06-16-2025 Lower GI hemoglobin IA Ql (Stl) Positive Abnormal [facility] White blood cell (WBC) count Ordered By: Phong Solomon on 06-16-2025 WBC (Bld) [#/Vol] 5.8 10*3/uL 4.4-11.0 [facility] Trough vancomycin levelOrder ed By: Kwaku Mendoza on 06-15-2025 Vancomycin trough [Mass/Vol] 25.0 ug/mL High 5.0-15.0 [facility] CNPNon 06-12-2025 CNPN Telephone (FAMPWS) -------- GELY FULLER ([id number]) 1950 F Date Time Provider Department 06/12/25 RISHI VASQUEZ [facility] During your visit today, we recorded the following information about you: Rachel Jacobs MA 06/12/2025 1:44 PM Signed Scan on 06/12/2025 11:59 AM by Provider, YANG MorrisonC: Admit [facility] 06/12/25-Current A1C \EANDE\ CMP for review Patient admitted to [facility]-Hospital faxed current A1C AND CMP results. [...] Assessed Reason for Visit: Results [95] Cmt: [facility] lab results (A1C AND CMP) Order(s):HBA1C (OUTSIDE) [[id number]] Order #: [id number] Prescriptions as of 06/17/2025 - glimepiride (AMARYL) [...] 1 tablet by mouth once daily. - Mmuwnwxc-Ffwa-Lfn-Folic Acid 18-0.4 mg tab Take 1 tablet [...] [L72.3, L08.9] 02/26/2019 Coronary artery disease involving [place] heart *05/28/2019 Abnormal urine odor [R82.90] 05/28/2019 [...] Status:Closed by SHANDRA KAUFMAN on 06/17/25 Normal [facility] HBA1C (OUTSIDE)on 06-12-2025 HbA1c (Bld) [Mass fraction] 7.4 % High [facility] Interpretation and review of laboratory results Abnormal [facility] Venous duplex ultrasound rep ortOrdered By: Giancarlo Ann on 06-12-2025 US Vein [facility] Other Phone: Absolute lymphocyte countOrd ered By: Shahnaz Bishop on 06-11-2025 Lymphocytes Auto (Unsp spec) [#/Vol] 1.04 10*3/uL 0.83-4.51 [facility] Anion gap in Serum or Plasma Ordered By: Shahnaz Bishop on 06-11-2025 Anion gap [Moles/Vol] 9 mmol/L 5-15 [facility] Automated lymphocyte count a s percentage of total leukocytesOrdered By: Shahnaz Bishop on 06-11-2025 Lymphocytes/100 WBC Auto (Unsp spec) 14.9 % Low 19-41 [facility] BUN/creatinine ratioOrdered By: Shahnaz Bishop on 06-11-2025 Urea nitrogen/Creatinine [Mass ratio] 40.1 mg/mg High 10-20 [facility] Basophil percentageOrdered B y: Shahnaz Bishop on 06-11-2025 Basophils/100 WBC (Bld) 0.6 % 0-1 [facility] Bilirubin, totalOrdered By: Shahnaz Bishop on 06-11-2025 Bilirubin [Mass/Vol] 0.25 mg/dL 0.00-1.30 [facility] Carbon dioxide, total [Moles /volume] in Central venous bloodOrdered By: Shahnaz Bishop on 06-11-2025 CO2 [Moles/Vol] 21.2 mmol/L 21.0-32.0 [facility] Chloride assayOrdered By: Deric Bishop on 06-11-2025 Chloride [Moles/Vol] 108 mmol/L 98-108 [facility] Eosinophil percentageOrdered By: Shahnaz Bishop on 06-11-2025 Eosinophils/100 WBC (Bld) 1.7 % 0-5 [facility] Erythrocyte distribution wid th ratioOrdered By: Shahnaz Bishop on 06-11-2025 Erythrocyte distribution width (RBC) [Ratio] 15.2 % High 11.6-14.6 [facility] Erythrocyte distribution wid th standard deviationOrdered By: Shahnaz Bishop on 06-11-2025 Erythrocyte distribution width (RBC) [Ratio] 50.3 fl High 35.1-43.9 [facility] Glomerular filtration rate ( GFR) estimation/1.73 sq m using serum, plasma, or whole bOrdered By: Shahnaz Bishop on 06-11-2025 GFR/1.73 sq M.predicted among non-blacks MDRD (S/P/Bld) [Vol rate/Area] 43 mL/min/{1.73_m2} Low >60 [facility] Gl[facility] measurement at [facility] deOrdered By: Phong Solomon on 06-11-2025 Glucose [Mass/Vol] 80 mg/dL 74-106 [facility] Hematocrit Auto (Bld) [Volum e fraction]Ordered By: Shahnaz Bishop on 06-11-2025 Hematocrit (Bld) [Volume fraction] 23.5 % Low 37-47 [facility] Hemoglobin measurementOrdere d By: Shahnaz Bishop on 06-11-2025 Hemoglobin (Bld) [Mass/Vol] 7.6 g/dL Low 12.0-15.0 [facility] Immature granulocytes/100 WB C Auto (Bld)Ordered By: Shahnaz Bishop 06-11-2025 Immature granulocytes/100 WBC (Bld) 0.400 % 0.0-0.9 [facility] MCV (mean corpuscular volume ) determinationOrdered By: Shahnaz Bishop on 06-11-2025 MCV (RBC) [Entitic vol] 90.4 fL 81-99 [facility] Magnesium measurement (mass/ volume)Ordered By: Shahnaz Bishop 06-11-2025 Magnesium (Unsp spec) [Mass/Vol] 1.8 mg/dL 1.5-2.2 [facility] Mean corpuscular hemoglobin (MCH) determinationOrdered By: Shahnaz Bishop 06-11-2025 MCH (RBC) [Entitic mass] 29.2 pg 27.0-32.0 [facility] Monocyte percentageOrdered B y: Shahnaz Bishop on 06-11-2025 Monocytes/100 WBC (Bld) 14.7 % High 0-10 [facility] Neutrophil percentageOrdered By: Shahnaz Bishop on 06-11-2025 Neutrophils/100 WBC (Bld) 67.7 % 47-70 [facility] No Panel InformationOrdered By: Shahnaz Bishop on 06-11-2025 19 U/L <32 [facility] Platelet countOrdered By: Deric Bishop on 06-11-2025 Platelets (Bld) [#/Vol] 167 10*3/uL 150-450 [facility] Potassium measurement (mass/ volume)Ordered By: Shahnaz Bishop on 06-11-2025 Potassium (Unsp spec) [Mass/Vol] 3.0 mmol/L Low 3.3-5.1 [facility] RBC Auto (Bld) [#/Vol]Ordere d By: Shahnaz Bishop on 06-11-2025 RBC (Bld) [#/Vol] 2.60 10*6/uL Low 4.2-5.4 [facility] Serum creatinine measurement (mass/volume)Ordered By: Shahnaz Bishop on 06-11-2025 Creatinine [Mass/Vol] 1.32 mg/dL High 0.70-1.20 [facility] Serum globulin measurementOr dered By: Shahnaz Bishop on 06-11-2025 Globulin (S) [Mass/Vol] 2.3 g/dL 2.2-4.2 [facility] Serum glucose measurement (m ass/volume)Ordered By: Shahnaz Bishop on 06-11-2025 Glucose [Mass/Vol] 58 mg/dL Low 70-99 [facility] Serum or plasma alanine anaya otransferase (ALT) measurementOrdered By: Shahnaz Bishop on 06-11-2025 ALT [Catalytic activity/Vol] 10 U/L <35 [facility] Serum or plasma albumin natalia urement (mass/volume)Ordered By: Shahnaz Bishop on 06-11-2025 Albumin [Mass/Vol] 2.4 g/dL Low 3.4-4.8 [facility] Serum or plasma albumin/glob ulin mass ratioOrdered By: Shahnaz Bishop on 06-11-2025 Albumin/Globulin [Mass ratio] 1.0 {ratio} 0.9-2.4 [facility] Serum or plasma alkaline chelsie sphatase measurementOrdered By: Shahnaz Bishop on 06-11-2025 ALP [Catalytic activity/Vol] 49 U/L 35-104 [facility] Serum or plasma calcium natalia urement (mass/volume)Ordered By: Shahnaz Bishop on 06-11-2025 Calcium [Mass/Vol] 8.2 mg/dL 7.6-11.0 [facility] Serum or plasma urea nitroge n measurement (mass/volume)Ordered By: Shahnaz Bishop on 06-11-2025 Urea nitrogen [Mass/Vol] 53 mg/dL High 4-19 [facility] Sodium levelOrdered By: Wale Bishop on 06-11-2025 Sodium [Moles/Vol] 139 mmol/L 133-145 [facility] Total proteinOrdered By: Lori Bishop on 06-11-2025 Protein [Mass/Vol] 4.7 g/dL Low 5.9-8.4 [facility] White blood cell (WBC) count Ordered By: Shahnaz Bishop on 06-11-2025 WBC (Bld) [#/Vol] 7.0 10*3/uL 4.4-11.0 [facility] Absolute lymphocyte countOrd ered By: Phong Solomon on 06-10-2025 Lymphocytes Auto (Unsp spec) [#/Vol] 0.68 10*3/uL Low 0.83-4.51 [facility] Anaerobic cultureOrdered By: Patel Irene on 06-10-2025 Bacteria identified Anaer cx Nom (Unsp spec) No anaerobic bacteria isolated. [facility] Anion gap in Serum or Plasma Ordered By: Phong Solomon on 06-10-2025 Anion gap [Moles/Vol] 11 mmol/L 5-15 [facility] Automated lymphocyte count a s percentage of total leukocytesOrdered By: Phong Solomon on 06-10-2025 Lymphocytes/100 WBC Auto (Unsp spec) 8.2 % Low 19-41 [facility] BUN/creatinine ratioOrdered By: Phong Solomon on 06-10-2025 Urea nitrogen/Creatinine [Mass ratio] 45.0 mg/mg High 10-20 [facility] Basophil percentageOrdered B y: Phong Solomon on 06-10-2025 Basophils/100 WBC (Bld) 0.4 % 0-1 [facility] Bilirubin Test strip Ql (U)O rdered By: Phong Solomon on 06-10-2025 Bilirubin Ql (U) Negative Negative [facility] Blood cultureOrdered By: Phong Solomon on 06-10-2025 Bacteria identified Cx Nom (Bld) No growth in 5 days. [facility] Bacteria identified Cx Nom (Bld) No growth in 5 days. [facility] COVID-19 virus antigen assay Ordered By: Phong Solomon on 06-10-2025 SARS-CoV-2 (COVID-19) Ag IA.rapid Ql (Resp) [facility] Carbon dioxide, total [Moles /volume] in Central venous bloodOrdered By: Phong Solomon on 06-10-2025 CO2 [Moles/Vol] 22.3 mmol/L 21.0-32.0 [facility] Chloride assayOrdered By: Addy Solomon on 06-10-2025 Chloride [Moles/Vol] 104 mmol/L 98-108 [facility] Clostridium difficile detect ion by polymerase chain reactionOrdered By: Phong Solomon on 06-10-2025 C. difficile DNA MARILYN+probe Ql (Unsp spec) [facility] Eosinophil percentageOrdered By: Phong Solomon on 06-10-2025 Eosinophils/100 WBC (Bld) 0.6 % 0-5 [facility] Erythrocyte distribution wid th ratioOrdered By: Phong Solomon on 06-10-2025 Erythrocyte distribution width (RBC) [Ratio] 14.7 % High 11.6-14.6 [facility] Erythrocyte distribution wid th standard deviationOrdered By: Phong Solomon on 06-10-2025 Erythrocyte distribution width (RBC) [Ratio] 49.3 fl High 35.1-43.9 [facility] Erythrocyte sedimentation ra teOrdered By: Patel Irene on 06-10-2025 ESR (Bld) [Velocity] 28 mm/h 0-30 [facility] Glomerular filtration rate ( GFR) estimation/1.73 sq m using serum, plasma, or whole bOrdered By: Phong Solomon on 06-10-2025 GFR/1.73 sq M.predicted among non-blacks MDRD (S/P/Bld) [Vol rate/Area] 47 mL/min/{1.73_m2} Low >60 [facility] Gram stainOrdered By: Keri Irene on 06-10-2025 Microscopic observation Gram stain Nom (Unsp spec) [facility] Hematocrit Auto (Bld) [Volum e fraction]Ordered By: Phong Solomon on 06-10-2025 Hematocrit (Bld) [Volume fraction] 25.7 % Low 37-47 [facility] Hemoglobin measurementOrdere d By: Phong Solomon on 06-10-2025 Hemoglobin (Bld) [Mass/Vol] 8.3 g/dL Low 12.0-15.0 [facility] Immature granulocytes/100 WB C Auto (Bld)Ordered By: Phong Solomon on 06-10-2025 Immature granulocytes/100 WBC (Bld) 0.400 % 0.0-0.9 [facility] Ketones Test strip Ql (U)Ord ered By: Phong Solomon on 06-10-2025 Ketones Ql (U) Negative Negative [facility] MCV (mean corpuscular volume ) determinationOrdered By: Phong Solomon on 06-10-2025 MCV (RBC) [Entitic vol] 91.8 fL 81-99 [facility] Mean corpuscular hemoglobin (MCH) determinationOrdered By: Phong Solomon on 06-10-2025 MCH (RBC) [Entitic mass] 29.6 pg 27.0-32.0 [facility] Monocyte percentageOrdered B y: Phong Solomon on 06-10-2025 Monocytes/100 WBC (Bld) 9.4 % 0-10 [facility] Mucus LM Ql (Urine sed)Order ed By: Phong Solomon on 06-10-2025 Mucus Ql (Urine sed) 0 SEEN /hpf [facility] Neutrophil percentageOrdered By: Phong Solomon on 06-10-2025 Neutrophils/100 WBC (Bld) 81.0 % High 47-70 [facility] Nitrite Test strip Ql (U)Ord ered By: Phong Solomon on 06-10-2025 Nitrite Ql (U) Positive High Negative [facility] Platelet countOrdered By: Addy Solomon on 06-10-2025 Platelets (Bld) [#/Vol] 169 10*3/uL 150-450 [facility] Potassium measurement (mass/ volume)Ordered By: Phong Solomon on 06-10-2025 Potassium (Unsp spec) [Mass/Vol] 3.7 mmol/L 3.3-5.1 [facility] Protein Test strip Ql (U)Ord ered By: Phong Solomon on 06-10-2025 Protein Ql (U) 30 mg/dl High Negative [facility] RBC Auto (Bld) [#/Vol]Ordere d By: Phong Solomon on 06-10-2025 RBC (Bld) [#/Vol] 2.80 10*6/uL Low 4.2-5.4 [facility] Respiratory pathogens detect ion panel by molecular detection methodOrdered By: Phong Solomon on 06-10-2025 Respiratory pathogens DNA and RNA panel MARILYN+probe (Resp) [facility] Routine wound cultureOrdered By: Patel Irene on 06-10-2025 Microbial culture, routine Stenotrophomonas maltophilia Abnormal [facility] Microbial culture, routine Meth. resistant Staph. aureus Abnormal [facility] Serum creatinine measurement (mass/volume)Ordered By: Phong Solomon on 06-10-2025 Creatinine [Mass/Vol] 1.22 mg/dL High 0.70-1.20 [facility] Serum glucose measurement (m ass/volume)Ordered By: Phong Solomon on 06-10-2025 Glucose [Mass/Vol] 218 mg/dL High 70-99 [facility] Serum or plasma C reactive p rotein measurement (mass/volume)Ordered By: Patel Irene on 06-10-2025 CRP [Mass/Vol] 242.00 mg/L High 0.0-3.0 [facility] Serum or plasma calcium natalia urement (mass/volume)Ordered By: Phong Solomon on 06-10-2025 Calcium [Mass/Vol] 8.5 mg/dL 7.6-11.0 [facility] Serum or plasma urea nitroge n measurement (mass/volume)Ordered By: Phong Solomon on 06-10-2025 Urea nitrogen [Mass/Vol] 55 mg/dL High 4-19 [facility] Sodium levelOrdered By: Phong Solomon on 06-10-2025 Sodium [Moles/Vol] 137 mmol/L 133-145 [facility] Squamous epithelial cells de tection in urine sediment by light microscopyOrdered By: Phong Solomon on 06-10-2025 Epithelial cells.squamous LM Ql (Urine sed) 0-5 SEEN /hpf 5-10 [facility] Stool Clostridium difficile detectionOrdered By: Phong Solomon on 06-10-2025 C. difficile Ql (Stl) Toxigenic C. difficile Abnormal [facility] Urine clarityOrdered By: Phong Solomon on 06-10-2025 Clarity (U) Sl. Cloudy Clear [facility] Urine color determinationOrd ered By: Phong Solomon on 06-10-2025 Color (U) Yellow Yellow [facility] Urine cultureOrdered By: Phong Solomon 06-10-2025 Bacteria identified Cx Nom (U) Enterobacter asburiae Abnormal [facility] Urine glucose detectionOrder ed By: Phong Solomon 06-10-2025 Glucose Ql (U) Normal mg/dl Normal [facility] Urine leukocyte esterase det ection by dipstickOrdered By: Phong Solomon 06-10-2025 Leukocyte esterase Test strip Ql (U) 500 /ul High Negative [facility] Urine pHOrdered By: Phong Solomon on 06-10-2025 pH (U) 6.0 [pH] 5.0 - 8.0 [facility] Urine sediment bacteria coun t by microscopy (number/high power field)Ordered By: Phong Solomon 06-10-2025 Bacteria LM.HPF (Urine sed) [#/Area] 1 /[HPF] None Seen [facility] Urine specific gravity measu rementOrdered By: Phong Solomon on 06-10-2025 Specific gravity (U) [Rel density] 1.015 1.002-1.030 [facility] Urine urobilinogen measureme ntOrdered By: Phong Solomon 06-10-2025 Urobilinogen Ql (U) Normal mg/dl Normal [facility] White blood cell (WBC) count Ordered By: Phong Solomon 06-10-2025 WBC (Bld) [#/Vol] 8.3 10*3/uL 4.4-11.0 [facility] White blood cell countOrdere d By: Phong Solomon on 06-10-2025 White blood cell count 25-50 SEEN /hpf 0-5 [facility] Absolute lymphocyte countOrd ered By: Phong Solomon on 06-09-2025 Lymphocytes Auto (Unsp spec) [#/Vol] 0.99 10*3/uL 0.83-4.51 [facility] Anion gap in Serum or Plasma Ordered By: Phong Solomon on 06-09-2025 Anion gap [Moles/Vol] 8 mmol/L 5-15 [facility] Automated lymphocyte count a s percentage of total leukocytesOrdered By: Phong Solomon on 06-09-2025 Lymphocytes/100 WBC Auto (Unsp spec) 12.8 % Low 19-41 [facility] BUN/creatinine ratioOrdered By: Phong Solomon on 06-09-2025 Urea nitrogen/Creatinine [Mass ratio] 48.8 mg/mg High 10-20 [facility] Basophil percentageOrdered B y: Phong Solomon on 06-09-2025 Basophils/100 WBC (Bld) 0.4 % 0-1 [facility] Bilirubin, totalOrdered By: Phong Solomon on 06-09-2025 Bilirubin [Mass/Vol] 0.31 mg/dL 0.00-1.30 [facility] Carbon dioxide, total [Moles /volume] in Central venous bloodOrdered By: Phong Solomon on 06-09-2025 CO2 [Moles/Vol] 25.0 mmol/L 21.0-32.0 [facility] Chloride assayOrdered By: Addy Solomon on 06-09-2025 Chloride [Moles/Vol] 108 mmol/L 98-108 [facility] Eosinophil percentageOrdered By: Phong Solomon on 06-09-2025 Eosinophils/100 WBC (Bld) 2.8 % 0-5 [facility] Erythrocyte distribution wid th ratioOrdered By: Phong Solomon on 06-09-2025 Erythrocyte distribution width (RBC) [Ratio] 14.5 % 11.6-14.6 [facility] Erythrocyte distribution wid th standard deviationOrdered By: Phong Solomon on 06-09-2025 Erythrocyte distribution width (RBC) [Ratio] 48.9 fl High 35.1-43.9 [facility] Glomerular filtration rate ( GFR) estimation/1.73 sq m using serum, plasma, or whole bOrdered By: Phong Solomon on 06-09-2025 GFR/1.73 sq M.predicted among non-blacks MDRD (S/P/Bld) [Vol rate/Area] 59 mL/min/{1.73_m2} Low >60 [facility] at [facility] deOrdered By: Phong Solomon on 06-09-2025 Glucose [Mass/Vol] 84 mg/dL 74-106 [facility] Hematocrit Auto (Bld) [Volum e fraction]Ordered By: Phong Sloomon 06-09-2025 Hematocrit (Bld) [Volume fraction] 26.5 % Low 37-47 [facility] Hemoglobin A1c percentageOrd ered By: Phong Solomon on 06-09-2025 HbA1c (Bld) [Mass fraction] 7.4 % High <5.7 [facility] Hemoglobin measurementOrdere d By: Phong Solomon 06-09-2025 Hemoglobin (Bld) [Mass/Vol] 8.5 g/dL Low 12.0-15.0 [facility] Immature granulocytes/100 WB C Auto (Bld)Ordered By: Phong Solomon 06-09-2025 Immature granulocytes/100 WBC (Bld) 0.800 % 0.0-0.9 [facility] MCV (mean corpuscular volume ) determinationOrdered By: Phong Solomon 06-09-2025 MCV (RBC) [Entitic vol] 92.0 fL 81-99 [facility] Mean corpuscular hemoglobin (MCH) determinationOrdered By: Phong Solomon 06-09-2025 MCH (RBC) [Entitic mass] 29.5 pg 27.0-32.0 [facility] Monocyte percentageOrdered B y: Phong Solomon on 06-09-2025 Monocytes/100 WBC (Bld) 11.5 % High 0-10 [facility] Neutrophil percentageOrdered By: Phong Solomon 06-09-2025 Neutrophils/100 WBC (Bld) 71.7 % High 47-70 [facility] No Panel InformationOrdered By: Phong Solomon on 06-09-2025 18 U/L <32 [facility] Platelet countOrdered By: Addy Solomon on 06-09-2025 Platelets (Bld) [#/Vol] 156 10*3/uL 150-450 [facility] Potassium measurement (mass/ volume)Ordered By: Phong Solomon on 06-09-2025 Potassium (Unsp spec) [Mass/Vol] 4.4 mmol/L 3.3-5.1 [facility] RBC Auto (Bld) [#/Vol]Ordere d By: Phong Solomon on 06-09-2025 RBC (Bld) [#/Vol] 2.88 10*6/uL Low 4.2-5.4 [facility] Serum creatinine measurement (mass/volume)Ordered By: Phong Solomon on 06-09-2025 Creatinine [Mass/Vol] 1.00 mg/dL 0.70-1.20 [facility] Serum globulin measurementOr dered By: Phong Solomon 06-09-2025 Globulin (S) [Mass/Vol] 2.4 g/dL 2.2-4.2 [facility] Serum glucose measurement (m ass/volume)Ordered By: Phong Solomon 06-09-2025 Glucose [Mass/Vol] 84 mg/dL 70-99 [facility] Serum or plasma alanine anaya otransferase (ALT) measurementOrdered By: Phong Solomon 06-09-2025 ALT [Catalytic activity/Vol] 11 U/L <35 [facility] Serum or plasma albumin natalia urement (mass/volume)Ordered By: Phong Solomon 06-09-2025 Albumin [Mass/Vol] 2.7 g/dL Low 3.4-4.8 [facility] Serum or plasma albumin/glob ulin mass ratioOrdered By: Phong Solomon 06-09-2025 Albumin/Globulin [Mass ratio] 1.1 {ratio} 0.9-2.4 [facility] Serum or plasma alkaline chelsie sphatase measurementOrdered By: Phong Solomon 06-09-2025 ALP [Catalytic activity/Vol] 69 U/L 35-104 [facility] Serum or plasma calcium natalia urement (mass/volume)Ordered By: Phong Solomon 06-09-2025 Calcium [Mass/Vol] 8.8 mg/dL 7.6-11.0 [facility] Serum or plasma urea nitroge n measurement (mass/volume)Ordered By: Phong Solomon on 06-09-2025 Urea nitrogen [Mass/Vol] 49 mg/dL High 4-19 [facility] Sodium levelOrdered By: Phong Solomon on 06-09-2025 Sodium [Moles/Vol] 141 mmol/L 133-145 [facility] [facility] Total proteinOrdered By: Phong Solomon on 06-09-2025 Protein [Mass/Vol] 5.1 g/dL Low 5.9-8.4 [facility] White blood cell (WBC) count Ordered By: Phong Solomon on 06-09-2025 WBC (Bld) [#/Vol] 7.7 10*3/uL 4.4-11.0 [facility] Glucose measurement at [facility] deOrdered By: Phong Solomon on 06-07-2025 Glucose [Mass/Vol] 145 mg/dL High 74-106 [facility] Glucose measurement at [facility] deOrdered By: Ortega Yanez on 06-05-2025 Glucose [Mass/Vol] 108 mg/dL High 74-106 [facility] Hematocrit Auto (Bld) [Volum e fraction]Ordered By: Phong Solomon on 06-03-2025 Hematocrit (Bld) [Volume fraction] 28.0 % Low 37-47 [facility] Hemoglobin measurementOrdere d By: Phong Solomon on 06-03-2025 Hemoglobin (Bld) [Mass/Vol] 9.3 g/dL Low 12.0-15.0 [facility] Stool gastrointestinal hemog lobin detection by immunologic methodOrdered By: Phong Solomon on 06-03-2025 Lower GI hemoglobin IA Ql (Stl) Positive Abnormal [facility] Absolute lymphocyte countOrd ered By: Phong Solomon on 06-02-2025 Lymphocytes Auto (Unsp spec) [#/Vol] 1.32 10*3/uL 0.83-4.51 [facility] Anion gap in Serum or Plasma Ordered By: Phong Solomon on 06-02-2025 Anion gap [Moles/Vol] 11 mmol/L 5-15 [facility] Automated lymphocyte count a s percentage of total leukocytesOrdered By: Phong Solomon on 06-02-2025 Lymphocytes/100 WBC Auto (Unsp spec) 35.1 % 19-41 [facility] BUN/creatinine ratioOrdered By: Phong Solomon on 06-02-2025 Urea nitrogen/Creatinine [Mass ratio] 62.0 mg/mg High 10-20 [facility] Basophil percentageOrdered B y: Phong Solomon on 06-02-2025 Basophils/100 WBC (Bld) 1.3 % High 0-1 [facility] Blood manual differential co mment interpretation (narrative result)Ordered By: Phong Solomon on 06-02-2025 Manual differential comment Dionicio (Bld) [Interp] SCANNED [facility] Carbon dioxide, total [Moles /volume] in Central venous bloodOrdered By: Phong Solomon on 06-02-2025 CO2 [Moles/Vol] 21.2 mmol/L 21.0-32.0 [facility] Chloride assayOrdered By: Addy Solomon on 06-02-2025 Chloride [Moles/Vol] 105 mmol/L 98-108 [facility] Eosinophil percentageOrdered By: Phong Solomon on 06-02-2025 Eosinophils/100 WBC (Bld) 3.2 % 0-5 [facility] Erythrocyte distribution wid th ratioOrdered By: Phong Solomon on 06-02-2025 Erythrocyte distribution width (RBC) [Ratio] 14.8 % High 11.6-14.6 [facility] Erythrocyte distribution wid th standard deviationOrdered By: Phong Solomon on 06-02-2025 Erythrocyte distribution width (RBC) [Ratio] 47.8 fl High 35.1-43.9 [facility] Erythrocyte morphology asses smentOrdered By: Phong Solomon on 06-02-2025 RBC morphology finding Nom (Bld) NORM C+C NORMAL NORM C&C [facility] Glomerular filtration rate ( GFR) estimation/1.73 sq m using serum, plasma, or whole bOrdered By: Phong Solomon on 06-02-2025 GFR/1.73 sq M.predicted among non-blacks MDRD (S/P/Bld) [Vol rate/Area] 47 mL/min/{1.73_m2} Low >60 [facility] Immature granulocytes/100 WB C Auto (Bld)Ordered By: Phong Solomon on 06-02-2025 Immature granulocytes/100 WBC (Bld) 0.300 % 0.0-0.9 [facility] MCV (mean corpuscular volume ) determinationOrdered By: Phong Solomon on 06-02-2025 MCV (RBC) [Entitic vol] 89.5 fL 81-99 [facility] Mean corpuscular hemoglobin (MCH) determinationOrdered By: Phong Solomon on 06-02-2025 MCH (RBC) [Entitic mass] 29.3 pg 27.0-32.0 [facility] Monocyte percentageOrdered B y: Phong Solomon on 06-02-2025 Monocytes/100 WBC (Bld) 7.4 % 0-10 [facility] Neutrophil percentageOrdered By: Phong Solomon on 06-02-2025 Neutrophils/100 WBC (Bld) 52.7 % 47-70 [facility] Platelet countOrdered By: Addy Solomon on 06-02-2025 Platelets (Bld) [#/Vol] 109 10*3/uL Low 150-450 [facility] Platelet estimateOrdered By: Phong Solomon on 06-02-2025 Platelets LM Ql (Bld) SLT DEC ADEQ [facility] Potassium measurement (mass/ volume)Ordered By: Phong Solomon 06-02-2025 Potassium (Unsp spec) [Mass/Vol] 4.5 mmol/L 3.3-5.1 [facility] RBC Auto (Bld) [#/Vol]Ordere d By: Phong Solomon 06-02-2025 RBC (Bld) [#/Vol] 2.66 10*6/uL Low 4.2-5.4 [facility] Serum creatinine measurement (mass/volume)Ordered By: Phong Solomon on 06-02-2025 Creatinine [Mass/Vol] 1.22 mg/dL High 0.70-1.20 [facility] Serum glucose measurement (m ass/volume)Ordered By: Phong Solomon 06-02-2025 Glucose [Mass/Vol] 181 mg/dL High 70-99 [facility] Serum or plasma calcium natalia urement (mass/volume)Ordered By: Phong Solomon 06-02-2025 Calcium [Mass/Vol] 9.0 mg/dL 7.6-11.0 [facility] Serum or plasma urea nitroge n measurement (mass/volume)Ordered By: Phong Solomon on 06-02-2025 Urea nitrogen [Mass/Vol] 76 mg/dL High 4-19 [facility] Sodium levelOrdered By: Phong Solomon on 06-02-2025 Sodium [Moles/Vol] 137 mmol/L 133-145 [facility] White blood cell (WBC) count Ordered By: Phong Solomon on 06-02-2025 WBC (Bld) [#/Vol] 3.8 10*3/uL Low 4.4-11.0 [facility] Anion gap in Serum or Plasma Ordered By: Christos Morrow on 06-01-2025 Anion gap [Moles/Vol] 12 mmol/L 5-15 [facility] BUN/creatinine ratioOrdered By: Christos Morrow on 06-01-2025 Urea nitrogen/Creatinine [Mass ratio] 56.9 mg/mg High 10-20 [facility] Bilirubin, totalOrdered By: Christos Morrow on 06-01-2025 Bilirubin [Mass/Vol] 0.59 mg/dL 0.00-1.30 [facility] Blood platelets count (numbe r/volume)Ordered By: Christos Morrow on 06-01-2025 Platelets (Bld) [#/Vol] 155 10*3/uL 150-450 [facility] Carbon dioxide, total [Moles /volume] in Central venous bloodOrdered By: Christos Morrow on 06-01-2025 CO2 [Moles/Vol] 21.5 mmol/L 21.0-32.0 [facility] Chloride assayOrdered By: Low Morrow on 06-01-2025 Chloride [Moles/Vol] 105 mmol/L 98-108 [facility] Erythrocyte distribution wid th ratioOrdered By: Christos Morrow on 06-01-2025 Erythrocyte distribution width (RBC) [Ratio] 15.1 % High 11.6-14.6 [facility] Glomerular filtration rate ( GFR) estimation/1.73 sq m using serum, plasma, or whole bOrdered By: Christos Morrow on 06-01-2025 GFR/1.73 sq M.predicted among non-blacks MDRD (S/P/Bld) [Vol rate/Area] 47 mL/min/{1.73_m2} Low >60 [facility] Glucose measurement at bedsi deOrdered By: Christos Morrow on 06-01-2025 Glucose [Mass/Vol] 191 mg/dL High 74-106 [facility] Hematocrit Auto (Bld) [Volum e fraction]Ordered By: Christos Morrow on 06-01-2025 Hematocrit (Bld) [Volume fraction] 27.9 % Low 37-47 [facility] Hemoglobin measurementOrdere d By: Christos Morrow on 06-01-2025 Hemoglobin (Bld) [Mass/Vol] 9.0 g/dL Low 12.0-15.0 [facility] MCV (mean corpuscular volume ) determinationOrdered By: Chirstos Morrow on 06-01-2025 MCV (RBC) [Entitic vol] 90.6 fL 81-99 [facility] Magnesium measurement (mass/ volume)Ordered By: Christos Morrow on 06-01-2025 Magnesium (Unsp spec) [Mass/Vol] 1.8 mg/dL 1.5-2.2 [facility] Mean corpuscular hemoglobin (MCH) determinationOrdered By: Christos Morrow on 06-01-2025 MCH (RBC) [Entitic mass] 29.2 pg 27.0-32.0 [facility] No Panel InformationOrdered By: Christos Morrow on 06-01-2025 20 U/L <32 [facility] Potassium measurement (mass/ volume)Ordered By: Christos Morrow on 06-01-2025 Potassium (Unsp spec) [Mass/Vol] 4.6 mmol/L 3.3-5.1 [facility] RBC Auto (Bld) [#/Vol]Ordere d By: Christos Morrow on 06-01-2025 RBC (Bld) [#/Vol] 3.08 10*6/uL Low 4.2-5.4 [facility] RDWOrdered By: Christos Morrow on 06-01-2025 RDW 49.8 fl High 35.1-43.9 [facility] Serum creatinine measurement (mass/volume)Ordered By: Christos Morrow on 06-01-2025 Creatinine [Mass/Vol] 1.22 mg/dL High 0.70-1.20 [facility] Serum globulin measurementOr dered By: Christos Morrow on 06-01-2025 Globulin (S) [Mass/Vol] 3.0 g/dL 2.2-4.2 [facility] Serum glucose measurement (m ass/volume)Ordered By: Christos Morrow on 06-01-2025 Glucose [Mass/Vol] 208 mg/dL High 70-99 [facility] Serum or plasma alanine anaya otransferase (ALT) measurementOrdered By: Christos Morrow on 06-01-2025 ALT [Catalytic activity/Vol] 15 U/L <35 [facility] Serum or plasma albumin natalia urement (mass/volume)Ordered By: Christos Morrow on 06-01-2025 Albumin [Mass/Vol] 2.7 g/dL Low 3.4-4.8 [facility] Serum or plasma albumin/glob ulin mass ratioOrdered By: Christos Morrow on 06-01-2025 Albumin/Globulin [Mass ratio] 0.9 {ratio} 0.9-2.4 [facility] Serum or plasma alkaline chelsie sphatase measurementOrdered By: Christos Morrow on 06-01-2025 ALP [Catalytic activity/Vol] 57 U/L 35-104 [facility] Serum or plasma calcium natalia urement (mass/volume)Ordered By: Christos Morrow on 06-01-2025 Calcium [Mass/Vol] 9.4 mg/dL 7.6-11.0 [facility] Serum or plasma urea nitroge n measurement (mass/volume)Ordered By: Christos Morrow on 06-01-2025 Urea nitrogen [Mass/Vol] 69 mg/dL High 4-19 [facility] Sodium levelOrdered By: Noe Morrow on 06-01-2025 Sodium [Moles/Vol] 138 mmol/L 133-145 [facility] Surgical pathology reportOrd ered By: Rachell Cruz on 06-01-2025 Surgical pathology study [facility] Total proteinOrdered By: Delfino Morrow on 06-01-2025 Protein [Mass/Vol] 5.7 g/dL Low 5.9-8.4 [facility] White blood cell (WBC) count Ordered By: Christos Morrow on 06-01-2025 WBC (Bld) [#/Vol] 6.1 10*3/uL 4.4-11.0 [facility] Absolute lymphocyte countOrd ered By: Maddie Merchant on 05-31-2025 Lymphocytes Auto (Unsp spec) [#/Vol] 1.18 10*3/uL 0.83-4.51 [facility] Automated lymphocyte count a s percentage of total leukocytesOrdered By: Maddie White on 05-31-2025 Lymphocytes/100 WBC Auto (Unsp spec) 24.4 % 19-41 [facility] Basophil percentageOrdered B y: White on 05-31-2025 Basophils/100 WBC (Bld) 0.8 % 0-1 [facility] Eosinophil percentageOrdered By: [facility] White on 05-31-2025 Eosinophils/100 WBC (Bld) 3.1 % 0-5 [facility] Immature granulocytes/100 WB C Auto (Bld)Ordered By: White on 05-31-2025 Immature granulocytes/100 WBC (Bld) 1.000 % High 0.0-0.9 [facility] Monocyte percentageOrdered B y: White on 05-31-2025 Monocytes/100 WBC (Bld) 4.6 % 0-10 [facility] Neutrophil percentageOrdered By: Maddie Shonda on 05-31-2025 Neutrophils/100 WBC (Bld) 66.1 % 47-70 [facility] Activated partial thrombopla stin time (aPTT) in platelet poor plasma by coagulation aOrdered By: Abena Fiore on 05-28-2025 aPTT Coag (PPP) [Time] 63.1 s High 24.1-36.2 [facility] Bedside Glucoseon 05-28-2025 FINGERSTICK GLU 220 mg/dL High 74-106 [facility] Comment on above: Result Comment: JEREMIAS PADILLA OF PATIENT CARE PER NURSING PROTOCOL Performed By: #### L 501.080 ####[facility] [address] [place], [place], [id number] CBC W/Diff, Automatedon 05-19 Absolute Lymph 1.22 X10 3/uL Normal 0.83-4.51 [facility] Comment on above: Performed By: #### L 300.4310, L100.0100 ####[facility] [address] [place], [address] Absolute Neut 7.6 X10 3/uL Normal 2.0-7.7 [facility] Comment on above: Performed By: #### L 300.4310, L100.0100 ####[facility] [address] [place], [address] Basophils/100 WBC (Bld) 0.3 % Normal 0-1 [facility] Comment on above: Performed By: #### L 300.4310, L100.0100 ####[facility] [address] [place], [address] Eosinophils/100 WBC (Bld) 0.7 % Normal 0-5 [facility] Comment on above: Performed By: #### L 300.4310, L100.0100 ####[facility] [address] [place], [address] Erythrocyte distribution width (RBC) [Ratio] 16.1 % High 11.6-14.6 [facility] Comment on above: Performed By: #### L 300.4310, L100.0100 ####[facility] [address] [place], [address] Hematocrit (Bld) [Volume fraction] 23.0 % Low 37-47 [facility] Comment on above: Performed By: #### L 300.4310, L100.0100 ####[facility] [address] [place], [address] Hemoglobin (Bld) [Mass/Vol] 7.3 g/dL Low 12.0-15.0 [facility] Comment on above: Performed By: #### L 300.4310, L100.0100 ####[facility] [address] [place], [address] IG% 2.100 High 0.0-0.9 [facility] Comment on above: Result Comment: IG% - Immature Granulocytes (promyelocytes, myelocytes andmetamyelocytes) > 1% indicates that a LEFT SHIFT is Present. Performed By: #### L 300.4310, L100.0100 ####[facility] [address] [place], [address] Lymphocytes/100 WBC (Bld) 12.6 % Low 19-41 [facility] Comment on above: Performed By: #### L 300.4310, L100.0100 ####[facility] [address] [place], [address] MCH (RBC) [Entitic mass] 29.1 pg Normal 27.0-32.0 [facility] Comment on above: Performed By: #### L 300.4310, L100.0100 ####[facility] [address] [place], [address] MCHC (RBC) [Mass/Vol] 31.7 g/dL Low 32-36 [facility] Comment on above: Performed By: #### L 300.4310, L100.0100 ####[facility] [address] [place], [address] MCV (RBC) [Entitic vol] 91.6 fL Normal 81-99 [facility] Comment on above: Performed By: #### L 300.4310, L100.0100 ####[facility] [address] [place], [address] Monocytes/100 WBC (Bld) 6.5 % Normal 0-10 [facility] Comment on above: Performed By: #### L 300.4310, L100.0100 ####[facility] [address] [place], [address] Neutrophils/100 WBC (Bld) 77.8 % High 47-70 [facility] Comment on above: Performed By: #### L 300.4310, L100.0100 ####[facility] [address] [place], [address] Nucleated RBC (Bld) [#/Vol] 0 10*3/uL Normal 0-5 [facility] Comment on above: Performed By: #### L 300.4310, L100.0100 ####[facility] [address] [place], [address] Platelet mean volume (Bld) [Entitic vol] 9.8 fL Normal 6.2-12.0 [facility] Comment on above: Performed By: #### L 300.4310, L100.0100 ####[facility] [address] [place], [address] Platelets (Bld) [#/Vol] 173 10*3/uL Normal 150-450 [facility] Comment on above: Performed By: #### L 300.4310, L100.0100 ####[facility] [address] [place], [address] RBC (Bld) [#/Vol] 2.51 10*6/uL Low 4.2-5.4 [facility] Comment on above: Performed By: #### L 300.4310, L100.0100 ####[facility] [address] [place], [address] RDW SD 54.3 fl High 35.1-43.9 [facility] Comment on above: Performed By: #### L 300.4310, L100.0100 ####[facility] [address] [place], [address] WBC (Bld) [#/Vol] 9.7 10*3/uL Normal 4.4-11.0 [facility] Comment on above: Performed By: #### L 300.4310, L100.0100 ####[facility] [address] [place], [address] Partial Thromboplast Timeon 05-28-2025 aPTT Coag (Bld) [Time] 63.1 s High 24.1-36.2 [facility] Comment on above: Performed By: #### L 300.4310, L100.0100 ####[facility] [address] [place], [address] Basic Metabolic Profile (BMP )on 05-27-2025 BUN/CRE 32.6 RATIO High 10-20 [facility] Comment on above: Performed By: #### L 100.0100, L500.2500 ####[facility] [address] [place], [address] Calcium [Mass/Vol] 8.5 mg/dL Normal 7.6-11.0 [facility] Comment on above: Performed By: #### L 100.0100, L500.2500 ####[facility] [address] [place], [address] Chloride [Moles/Vol] 108 mmol/L Normal 98-108 [facility] Comment on above: Performed By: #### L 100.0100, L500.2500 ####[facility] [address] [place], [address] CO2 [Moles/Vol] 19.3 mmol/L Low 21.0-32.0 [facility] Comment on above: Performed By: #### L 100.0100, L500.2500 ####[facility] [address] [place], [address] Creatinine [Mass/Vol] 1.09 mg/dL Normal 0.70-1.20 [facility] Comment on above: Performed By: #### L 100.0100, L500.2500 ####[facility] [address] [place], [address] ECRCL 47.19 ml/min Low 50-250 [facility] Comment on above: Performed By: #### L 100.0100, L500.2500 ####[facility] [address] [place], [address] GAP 14 Normal 5-15 [facility] Comment on above: Performed By: #### L 100.0100, L500.2500 ####[facility] [address] [place], [address] GFR/1.73 sq M.predicted among non-blacks MDRD (S/P/Bld) [Vol rate/Area] 54 mL/min/{1.73_m2} Low >60 [facility] Comment on above: Result Comment: mL/m in/1.73m2 CKD-EPI Creatinine Equation (2020) Performed By: #### L 100.0100, L500.2500 ####[facility] [address] [place], [address] Glucose [Mass/Vol] 208 mg/dL High 70-99 [facility] Comment on above: Performed By: #### L 100.0100, L500.2500 ####[facility] [address] [place], [address] Potassium [Moles/Vol] 4.9 mmol/L Normal 3.3-5.1 [facility] Comment on above: Performed By: #### L 100.0100, L500.2500 ####[facility] [address] [place], [address] Sodium [Moles/Vol] 141 mmol/L Normal 133-145 [facility] Comment on above: Performed By: #### L 100.0100, L500.2500 ####[facility] [address] [place], [address] Urea nitrogen [Mass/Vol] 36 mg/dL High 4-19 [facility] Comment on above: Performed By: #### L 100.0100, L500.2500 ####[facility] [address] [place], [address] Bedside Glucoseon - FINGERSTICK GLU 226 mg/dL High 74-106 [facility] Comment on above: Result Comment: JEREMIAS GEMENT OF PATIENT CARE PER NURSING PROTOCOL Performed By: #### L 501.080 ####[facility] [address] [place], [address] FINGERSTICK GLU 264 mg/dL High 74-106 [facility] Comment on above: Result Comment: JEREMIAS GEMENT OF PATIENT CARE PER NURSING PROTOCOL Performed By: #### L 501.080 ####[facility] [address] [place], [address] FINGERSTICK GLU 237 mg/dL High 74-106 [facility] Comment on above: Result Comment: JEREMIAS GEMENT OF PATIENT CARE PER NURSING PROTOCOL Performed By: #### L 501.080 ####[facility] [address] [place], [address] FINGERSTICK GLU 221 mg/dL High 74-106 [facility] Comment on above: Result Comment: JEREMIAS GEMENT OF PATIENT CARE PER NURSING PROTOCOL Performed By: #### L 501.080 ####[facility] [address] [place], [address] CBC W/Diff, Automatedon 07-0 Absolute Lymph 0.96 X10 3/uL Normal 0.83-4.51 [facility] Comment on above: Performed By: #### L 100.0100, L500.2500 ####[facility] [address] [place], [address] Absolute Neut 11.0 X10 3/uL High 2.0-7.7 [facility] Comment on above: Performed By: #### L 100.0100, L500.2500 ####[facility] [address] [place], [address] Basophils/100 WBC (Bld) 0.4 % Normal 0-1 [facility] Comment on above: Performed By: #### L 100.0100, L500.2500 ####[facility] [address] [place], [address] Eosinophils/100 WBC (Bld) 0.1 % Normal 0-5 [facility] Comment on above: Performed By: #### L 100.0100, L500.2500 ####[facility] [address] [place], [address] Erythrocyte distribution width (RBC) [Ratio] 15.9 % High 11.6-14.6 [facility] Comment on above: Performed By: #### L 100.0100, L500.2500 ####[facility] [address] [place], [address] Hematocrit (Bld) [Volume fraction] 26.6 % Low 37-47 [facility] Comment on above: Performed By: #### L 100.0100, L500.2500 ####[facility] [address] [place], [address] Hemoglobin (Bld) [Mass/Vol] 8.5 g/dL Low 12.0-15.0 [facility] Comment on above: Performed By: #### L 100.0100, L500.2500 ####[facility] [address] [place], [address] IG% 2.600 High 0.0-0.9 [facility] Comment on above: Result Comment: IG% - Immature Granulocytes (promyelocytes, myelocytes andmetamyelocytes) > 1% indicates that a LEFT SHIFT is Present. Performed By: #### L 100.0100, L500.2500 ####[facility] [address] [place], [address] Lymphocytes/100 WBC (Bld) 7.3 % Low 19-41 [facility] Comment on above: Performed By: #### L 100.0100, L500.2500 ####[facility] [address] [place], [address] MCH (RBC) [Entitic mass] 29.0 pg Normal 27.0-32.0 [facility] Comment on above: Performed By: #### L 100.0100, L500.2500 ####[facility] [address] [place], [address] MCHC (RBC) [Mass/Vol] 32.0 g/dL Normal 32-36 [facility] Comment on above: Performed By: #### L 100.0100, L500.2500 ####[facility] [address] [place], [address] MCV (RBC) [Entitic vol] 90.8 fL Normal 81-99 [facility] Comment on above: Performed By: #### L 100.0100, L500.2500 ####[facility] [address] [place], [address] Monocytes/100 WBC (Bld) 5.8 % Normal 0-10 [facility] Comment on above: Performed By: #### L 100.0100, L500.2500 ####[facility] [address] [place], [address] Neutrophils/100 WBC (Bld) 83.8 % High 47-70 [facility] Comment on above: Performed By: #### L 100.0100, L500.2500 ####[facility] [address] [place], [address] Nucleated RBC (Bld) [#/Vol] 0 10*3/uL Normal 0-5 [facility] Comment on above: Performed By: #### L 100.0100, L500.2500 ####[facility] [address] [place], [address] Platelet mean volume (Bld) [Entitic vol] 9.9 fL Normal 6.2-12.0 [facility] Comment on above: Performed By: #### L 100.0100, L500.2500 ####[facility] [address] [place], [address] Platelets (Bld) [#/Vol] 239 10*3/uL Normal 150-450 [facility] Comment on above: Performed By: #### L 100.0100, L500.2500 ####[facility] [address] [place], [address] RBC (Bld) [#/Vol] 2.93 10*6/uL Low 4.2-5.4 [facility] Comment on above: Performed By: #### L 100.0100, L500.2500 ####[facility] [address] [place], [address] RDW SD 52.5 fl High 35.1-43.9 [facility] Comment on above: Performed By: #### L 100.0100, L500.2500 ####[facility] [address] [place], [address] WBC (Bld) [#/Vol] 13.2 10*3/uL High 4.4-11.0 [facility] Comment on above: Performed By: #### L 100.0100, L500.2500 ####[facility] [address] [place], [address] MR/[id number] 05-27-2025 MR/POSTOPAN2 Normal [facility] Prothrombin Time w/INRon INR Coag (PPP) [Relative time] 1.1 {INR} Normal [facility] Comment on above: Performed By: #### L 300.3900 ####[facility] [address] [place], [address] PT Coag (PPP) [Time] 14.5 s Normal 11.7-14.9 [facility] Comment on above: Performed By: #### L 300.3900 ####[facility] [address] [place], [address] Prothrombin timeOrdered By: Russell Clement on 05-27-2025 PT Coag (PPP) [Time] 14.5 s 11.7-14.9 [facility] ACT Activated Clotting Timeo n 05-26-2025 ACTk CLOT TIME 245 sec High 74-137 [facility] Comment on above: Performed By: #### L 9100.0100 ####[facility] [address] [place], [address] ACTk CLOT TIME 112 sec Normal 74-137 [facility] Comment on above: Performed By: #### L 9100.0100 ####[facility] [address] [place], [address] Amorphous sediment detection in urine sediment by light microscopyOrdered By: Maddie White on 05-26-2025 Amorphous sediment LM Ql (Urine sed) 2+ [facility] Anion gap in Serum or Plasma Ordered By: Russell Clement on 05-26-2025 Anion gap [Moles/Vol] 12 mmol/L 5-15 [facility] BRCon 05-26-2025 RC Normal [facility] Comment on above: Result Comment: [id number] AP RC TRANSFUSED 05/28/25 [id number] AP RC PRSMD TRFSD 05/26/25 1123 Performed By: #### L 100.0500, BRC, L500.2500, BTS ####[facility] [address] [place], [address] BUN/creatinine ratioOrdered By: Russell Clement on 05-26-2025 Urea nitrogen/Creatinine [Mass ratio] 34.0 mg/mg High 10-20 [facility] Basic Metabolic Profile (BMP )on 05-26-2025 BUN/CRE 34.0 RATIO High 10-20 [facility] Comment on above: Performed By: #### L 100.0500, [facility], L500.2500, BTS ####[facility] [address] [place], [address] Calcium [Mass/Vol] 9.3 mg/dL Normal 7.6-11.0 [facility] Comment on above: Performed By: #### L 100.0500, [facility], L500.2500, BTS ####[facility] [address] [place], [address] Chloride [Moles/Vol] 109 mmol/L High 98-108 [facility] Comment on above: Performed By: #### L 100.0500, [facility], L500.2500, BTS ####[facility] [address] [place], [address] CO2 [Moles/Vol] 20.2 mmol/L Low 21.0-32.0 [facility] Comment on above: Performed By: #### L 100.0500, [facility], L500.2500, BTS ####[facility] [address] [place], [address] Creatinine [Mass/Vol] 1.16 mg/dL Normal 0.70-1.20 [facility] Comment on above: Performed By: #### L 100.0500, [facility], L500.2500, BTS ####[facility] [address] [place], [address] ECRCL 44.34 ml/min Low 50-250 [facility] Comment on above: Performed By: #### L 100.0500, [facility], L500.2500, BTS ####[facility] [address] [place], [address] GAP 12 Normal 5-15 [facility] Comment on above: Performed By: #### L 100.0500, BR, L500.2500, BTS ####[facility] [address] [place], [address] GFR/1.73 sq M.predicted among non-blacks MDRD (S/P/Bld) [Vol rate/Area] 50 mL/min/{1.73_m2} Low >60 [facility] Comment on above: Result Comment: mL/m in/1.73m2 CKD-EPI Creatinine Equation (2020) Performed By: #### L 100.0500, BR, L500.2500, BTS ####[facility] [address] [place], [address] Glucose [Mass/Vol] 119 mg/dL High 70-99 [facility] Comment on above: Performed By: #### L 100.0500, [facility], L500.2500, BTS ####[facility] [address] [place], [address] Potassium [Moles/Vol] 4.3 mmol/L Normal 3.3-5.1 [facility] Comment on above: Result Comment: Hemo lysis present, Results??could be affected.?? Performed By: #### L 100.0500, BR, L500.2500, BTS ####[facility] [address] [place], [address] Sodium [Moles/Vol] 141 mmol/L Normal 133-145 [facility] Comment on above: Performed By: #### L 100.0500, BR, L500.2500, BTS ####[facility] [address] [place], [address] Urea nitrogen [Mass/Vol] 39 mg/dL High 4-19 [facility] Comment on above: Performed By: #### L 100.0500, BR, L500.2500, BTS ####[facility] [address] [place], [address] Bedside Glucoseon 05-26-2025 FINGERSTICK GLU 182 mg/dL High 74-106 [facility] Comment on above: Result Comment: JEREMIAS GEMENT OF PATIENT CARE PER NURSING PROTOCOL Performed By: #### L 501.080 ####[facility] [address] [place], [address] FINGERSTICK GLU 193 mg/dL High 74-106 [facility] Comment on above: Result Comment: JEREMIAS GEMENT OF PATIENT CARE PER NURSING PROTOCOL Performed By: #### L 501.080 ####[facility] [address] [place], [address] FINGERSTICK GLU 116 mg/dL High 74-106 [facility] Comment on above: Result Comment: JEREMIAS GEMENT OF PATIENT CARE PER NURSING PROTOCOL Performed By: #### L 501.080 ####[facility] [address] [place], [address] Bilirubin Test strip Ql (U)O rdered By: Maddie Merchant on 05-26-2025 Bilirubin Ql (U) Negative Negative [facility] CBC W/Diff, Automatedon Absolute Lymph 0.83 X10 3/uL Normal 0.83-4.51 [facility] Comment on above: Performed By: #### L 100.0100 ####[facility] [address] [place], [address] Absolute Neut 13.9 X10 3/uL High 2.0-7.7 [facility] Comment on above: Performed By: #### L 100.0100 ####[facility] [address] [place], [address] Basophils/100 WBC (Bld) 0.6 % Normal 0-1 [facility] Comment on above: Performed By: #### L 100.0100 ####[facility] [address] [place], [address] Eosinophils/100 WBC (Bld) 0.4 % Normal 0-5 [facility] Comment on above: Performed By: #### L 100.0100 ####[facility] [address] [place], [address] Erythrocyte distribution width (RBC) [Ratio] 15.4 % High 11.6-14.6 [facility] Comment on above: Performed By: #### L 100.0100 ####[facility] [address] [place], [address] Hematocrit (Bld) [Volume fraction] 29.8 % Low 37-47 [facility] Comment on above: Performed By: #### L 100.0100 ####[facility] [address] [place], [address] Hemoglobin (Bld) [Mass/Vol] 9.6 g/dL Low 12.0-15.0 [facility] Comment on above: Performed By: #### L 100.0100 ####[facility] [address] [place], [address] IG% 2.700 High 0.0-0.9 [facility] Comment on above: Result Comment: IG% - Immature Granulocytes (promyelocytes, myelocytes andmetamyelocytes) > 1% indicates that a LEFT SHIFT is Present. Performed By: #### L 100.0100 ####[facility] [address] [place], [address] Lymphocytes/100 WBC (Bld) 5.2 % Low 19-41 [facility] Comment on above: Performed By: #### L 100.0100 ####[facility] [address] [place], [address] MCH (RBC) [Entitic mass] 29.3 pg Normal 27.0-32.0 [facility] Comment on above: Performed By: #### L 100.0100 ####[facility] [address] [place], [address] MCHC (RBC) [Mass/Vol] 32.2 g/dL Normal 32-36 [facility] Comment on above: Performed By: #### L 100.0100 ####[facility] [address] [place], [address] MCV (RBC) [Entitic vol] 90.9 fL Normal 81-99 [facility] Comment on above: Performed By: #### L 100.0100 ####[facility] [address] [place], [address] Monocytes/100 WBC (Bld) 4.3 % Normal 0-10 [facility] Comment on above: Performed By: #### L 100.0100 ####[facility] [address] [place], [address] Neutrophils/100 WBC (Bld) 86.8 % High 47-70 [facility] Comment on above: Performed By: #### L 100.0100 ####[facility] [address] [place], [address] Nucleated RBC (Bld) [#/Vol] 0 10*3/uL Normal 0-5 [facility] Comment on above: Performed By: #### L 100.0100 ####[facility] [address] [place], [address] Platelet mean volume (Bld) [Entitic vol] 11.0 fL Normal 6.2-12.0 [facility] Comment on above: Performed By: #### L 100.0100 ####[facility] [address] [place], [address] Platelets (Bld) [#/Vol] 241 10*3/uL Normal 150-450 [facility] Comment on above: Performed By: #### L 100.0100 ####[facility] [address] [place], [address] RBC (Bld) [#/Vol] 3.28 10*6/uL Low 4.2-5.4 [facility] Comment on above: Performed By: #### L 100.0100 ####[facility] [address] [place], [address] RDW SD 51.2 fl High 35.1-43.9 [facility] Comment on above: Performed By: #### L 100.0100 ####[facility] [address] [place], [address] WBC (Bld) [#/Vol] 16.0 10*3/uL High 4.4-11.0 [facility] Comment on above: Performed By: #### L 100.0100 ####[facility] [address] [place], [address] Absolute Neut Normal 2.0-7.7 [facility] Comment on above: Result Comment: Canc elled via OM: Order edited - Discontinuing original order Performed By: #### L 100.0100 ####[facility] [address] [place], [address] HCT Normal 37-47 [facility] Comment on above: Result Comment: Canc elled via OM: Order edited - Discontinuing original order Performed By: #### L 100.0100 ####[facility] [address] [place], [address] HGB Normal 12.0-15.0 [facility] Comment on above: Result Comment: Canc elled via OM: Order edited - Discontinuing original order Performed By: #### L 100.0100 ####[facility] [address] [place], [address] MCH Normal 27.0-32.0 [facility] Comment on above: Result Comment: Canc elled via OM: Order edited - Discontinuing original order Performed By: #### L 100.0100 ####[facility] [address] [place], [address] MCHC Normal 32-36 [facility] Comment on above: Result Comment: Canc elled via OM: Order edited - Discontinuing original order Performed By: #### L 100.0100 ####[facility] [address] [place], [address] MCV Normal 81-99 [facility] Comment on above: Result Comment: Canc elled via OM: Order edited - Discontinuing original order Performed By: #### L 100.0100 ####[facility] [address] [place], [address] NEUT% Normal 47-70 [facility] Comment on above: Result Comment: Canc elled via OM: Order edited - Discontinuing original order Performed By: #### L 100.0100 ####[facility] [address] [place], [address] PLT Normal 150-450 [facility] Comment on above: Result Comment: Canc elled via OM: Order edited - Discontinuing original order Performed By: #### L 100.0100 ####[facility] [address] [place], [address] RBC Normal 4.2-5.4 [facility] Comment on above: Result Comment: Canc elled via OM: Order edited - Discontinuing original order Performed By: #### L 100.0100 ####[facility] [address] [place], [address] RDW CV Normal 11.6-14.6 [facility] Comment on above: Result Comment: Canc elled via OM: Order edited - Discontinuing original order Performed By: #### L 100.0100 ####[facility] [address] [place], [address] RDW SD Normal 35.1-43.9 [facility] Comment on above: Result Comment: Canc elled via OM: Order edited - Discontinuing original order Performed By: #### L 100.0100 ####[facility] [address] [place], [address] WBC Normal 4.4-11.0 [facility] Comment on above: Result Comment: Canc elled via OM: Order edited - Discontinuing original order Performed By: #### L 100.0100 ####[facility] [address] [place], [address] CBC-Complete Blood Cnt No Di ffon 05-26-2025 Erythrocyte distribution width (RBC) [Ratio] 15.6 % High 11.6-14.6 [facility] Comment on above: Performed By: #### L 100.0500, BRC, L500.2500, BTS ####[facility] [address] [place], [address] Hematocrit (Bld) [Volume fraction] 29.2 % Low 37-47 [facility] Comment on above: Performed By: #### L 100.0500, BRC, L500.2500, BTS ####[facility] [address] [place], [address] Hemoglobin (Bld) [Mass/Vol] 9.2 g/dL Low 12.0-15.0 [facility] Comment on above: Performed By: #### L 100.0500, BRC, L500.2500, BTS ####[facility] [address] [place], [address] MCH (RBC) [Entitic mass] 28.8 pg Normal 27.0-32.0 [facility] Comment on above: Performed By: #### L 100.0500, BRC, L500.2500, BTS ####[facility] [address] [place], [address] MCHC (RBC) [Mass/Vol] 31.5 g/dL Low 32-36 [facility] Comment on above: Performed By: #### L 100.0500, [facility], L500.2500, BTS ####[facility] [address] [place], [address] MCV (RBC) [Entitic vol] 91.5 fL Normal 81-99 [facility] Comment on above: Performed By: #### L 100.0500, [facility], L500.2500, BTS ####[facility] [address] [place], [address] Platelet mean volume (Bld) [Entitic vol] 10.5 fL Normal 6.2-12.0 [facility] Comment on above: Performed By: #### L 100.0500, [facility], L500.2500, BTS ####[facility] [address] [place], [address] Platelets (Bld) [#/Vol] 254 10*3/uL Normal 150-450 [facility] Comment on above: Performed By: #### L 100.0500, [facility], L500.2500, BTS ####[facility] [address] [place], [address] RBC (Bld) [#/Vol] 3.19 10*6/uL Low 4.2-5.4 [facility] Comment on above: Performed By: #### L 100.0500, [facility], L500.2500, BTS ####[facility] [address] [place], [address] RDW SD 52.3 fl High 35.1-43.9 [facility] Comment on above: Performed By: #### L 100.0500, BR, L500.2500, BTS ####[facility] [address] [place], [address] WBC (Bld) [#/Vol] 6.3 10*3/uL Normal 4.4-11.0 [facility] Comment on above: Performed By: #### L 100.0500, BRC, L500.2500, BTS ####[facility] [address] [place], [address] Carbon dioxide, total [Moles /volume] in Central venous bloodOrdered By: Russell Clement on 05-26-2025 CO2 [Moles/Vol] 20.2 mmol/L Low 21.0-32.0 [facility] Chloride assayOrdered By: Julien Clement on 05-26-2025 Chloride [Moles/Vol] 109 mmol/L High 98-108 [facility] Culture, Anaerobic Any Sourc adonis 05-26-2025 CUAN Normal [facility] Comment on above: Performed By: #### M 100.3000, M100.4001, M600.2200, M100.2000, M600.2000 ####[facility] [address] [place], [address] Culture, Blood (WB)on 2024 CUB No growth in 5 days. Normal [facility] Comment on above: Performed By: #### M 200.1000 ####[facility] [address] [place], [address] Erythrocyte distribution wid th ratioOrdered By: Russell Clement on 05-26-2025 Erythrocyte distribution width (RBC) [Ratio] 15.6 % High 11.6-14.6 [facility] Erythrocyte distribution wid th standard deviationOrdered By: Russell Clement on 05-26-2025 Erythrocyte distribution width (RBC) [Ratio] 52.3 fl High 35.1-43.9 [facility] Glomerular filtration rate ( GFR) estimation/1.73 sq m using serum, plasma, or whole bOrdered By: Russell Clement on 05-26-2025 GFR/1.73 sq M.predicted among non-blacks MDRD (S/P/Bld) [Vol rate/Area] 50 mL/min/{1.73_m2} Low >60 [facility] Glucose measurement at bedsi deOrdered By: Maddie Merchant on 05-26-2025 Glucose [Mass/Vol] 116 mg/dL High 74-106 [facility] Hematocrit Auto (Bld) [Volum e fraction]Ordered By: Russell Clement on 05-26-2025 Hematocrit (Bld) [Volume fraction] 29.2 % Low 37-47 [facility] Hemoglobin measurementOrdere d By: Russell Clement on 05-26-2025 Hemoglobin (Bld) [Mass/Vol] 9.2 g/dL Low 12.0-15.0 [facility] Ketones Test strip Ql (U)Ord ered By: Maddie Merchant on 05-26-2025 Ketones Ql (U) 5 mg/dl High Negative [facility] MCV (mean corpuscular volume ) determinationOrdered By: Russell Clement on 05-26-2025 MCV (RBC) [Entitic vol] 91.5 fL 81-99 [facility] MR/POSTOP.ANEon 05-26-2025 MR/POSTOP.ANE Normal [facility] Mean corpuscular hemoglobin (MCH) determinationOrdered By: Russell Clement on 05-26-2025 MCH (RBC) [Entitic mass] 28.8 pg 27.0-32.0 [facility] Mucus LM Ql (Urine sed)Order ed By: Maddie Merchant on 05-26-2025 Mucus Ql (Urine sed) 0 SEEN /hpf [facility] Nitrite Test strip Ql (U)Ord ered By: Maddie Merchant on 05-26-2025 Nitrite Ql (U) Negative Negative [facility] Operative Reporton Operative Report Normal [facility] Platelet countOrdered By: Julien Clement on 05-26-2025 Platelets (Bld) [#/Vol] 254 10*3/uL 150-450 [facility] Potassium measurement (mass/ volume)Ordered By: Russell Clement on 05-26-2025 Potassium (Unsp spec) [Mass/Vol] 4.3 mmol/L 3.3-5.1 [facility] Protein Test strip Ql (U)Ord ered By: Maddie Merchant on 05-26-2025 Protein Ql (U) 100 mg/dl High Negative [facility] RBC Auto (Bld) [#/Vol]Ordere d By: Russell Antlers on 05-26-2025 RBC (Bld) [#/Vol] 3.19 10*6/uL Low 4.2-5.4 [facility] Serum creatinine measurement (mass/volume)Ordered By: Russell Clement on 05-26-2025 Creatinine [Mass/Vol] 1.16 mg/dL 0.70-1.20 [facility] Serum glucose measurement (m ass/volume)Ordered By: Russell Clement on 05-26-2025 Glucose [Mass/Vol] 119 mg/dL High 70-99 [facility] Serum or plasma calcium natalia urement (mass/volume)Ordered By: Russellyuri Clement on 05-26-2025 Calcium [Mass/Vol] 9.3 mg/dL 7.6-11.0 [facility] Serum or plasma urea nitroge n measurement (mass/volume)Ordered By: Russell Clement on 05-26-2025 Urea nitrogen [Mass/Vol] 39 mg/dL High 4-19 [facility] Sodium levelOrdered By: Russell Clement on 05-26-2025 Sodium [Moles/Vol] 141 mmol/L 133-145 [facility] Squamous epithelial cells de tection in urine sediment by light microscopyOrdered By: Maddie White on 05-26-2025 Epithelial cells.squamous LM Ql (Urine sed) 5-10 SEEN /hpf 5-10 [facility] Type AND Screenon 05-26-2025 Ab SCREEN GEL Negative Normal [facility] Comment on above: Order Comment: S Performed By: #### L 100.0500, BRC, L500.2500, BTS ####[facility] [address] [place], [place], [address] Urinalysis, Completeon 05-26 AMORPHOUS 2+ Normal [facility] Comment on above: Order Comment: MARTHA TER SPECIMEN Performed By: #### L 400.0001 ####[facility] [address] [place], [address] YEAST 1+ /hpf Normal None Seen [facility] Comment on above: Order Comment: MARTHA TER SPECIMEN Performed By: #### L 400.0001 ####[facility] [address] [place], [address] BACTERIA 1+ /hpf Normal None Seen [facility] Comment on above: Order Comment: MARTHA TER SPECIMEN Performed By: #### L 400.0001 ####[facility] [address] [place], [address] EPI,SQUAMOUS 5-10 SEEN Normal 5-10 [facility] Comment on above: Order Comment: MARTHA TER SPECIMEN Performed By: #### L 400.0001 ####[facility] [address] [place], [address] RBC 5-10 SEEN Normal 0-5 [facility] Comment on above: Order Comment: MARTHA TER SPECIMEN Performed By: #### L 400.0001 ####[facility] [address] [place], [address] WBC >100 SEEN Normal 0-5 [facility] Comment on above: Order Comment: MARTHA TER SPECIMEN Performed By: #### L 400.0001 ####[facility] [address] [place], [address] Mucus Ql (Urine sed) 0 SEEN Normal [facility] Comment on above: Order Comment: MARTHA TER SPECIMEN Performed By: #### L 400.0001 ####[facility] [address] [place], [address] Urine clarityOrdered By: Aut aidann White on 05-26-2025 Clarity (U) Turbid Clear [facility] Urine color determinationOrd ered By: White on 05-26-2025 Color (U) Yellow Yellow [facility] Urine cultureOrdered By: Aut laila White on 05-26-2025 Bacteria identified Cx Nom (U) Presumptive C albicans Abnormal [facility] Urine glucose detectionOrder ed By: Maddie Merchant on 05-26-2025 Glucose Ql (U) Normal mg/dl Normal [facility] Urine leukocyte esterase det ection by dipstickOrdered By: Maddie Merchant on 05-26-2025 Leukocyte esterase Test strip Ql (U) 500 /ul High Negative [facility] Urine pHOrdered By: Maddie Ric poseye on 05-26-2025 pH (U) 5.0 [pH] 5.0 - 8.0 [facility] Urine sediment bacteria coun t by microscopy (number/high power field)Ordered By: Maddie Shonda on 05-26-2025 Bacteria LM.HPF (Urine sed) [#/Area] 1 /[HPF] None Seen [facility] Urine sediment yeast count b y microscopy (number/high powered field)Ordered By: Maddie Shonda on 05-26-2025 Yeast LM.HPF (Urine sed) [#/Area] 1 /[HPF] None Seen [facility] Urine specific gravity measu rementOrdered By: Maddie Shonda on 05-26-2025 Specific gravity (U) [Rel density] 1.025 1.002-1.030 [facility] Urine urobilinogen measureme ntOrdered By: Maddie Merchant on 05-26-2025 Urobilinogen Ql (U) Normal mg/dl Normal [facility] White blood cell (WBC) count Ordered By: Russell Clement on 05-26-2025 WBC (Bld) [#/Vol] 6.3 10*3/uL 4.4-11.0 [facility] White blood cell countOrdere d By: Maddie Merchant on 05-26-2025 White blood cell count >100 SEEN /hpf 0-5 [facility] Wound Cultureon 05-26-2025 WC Normal [facility] Comment on above: Performed By: #### M 100.3000, M100.4001, M600.2200, M100.2000, M600.2000 ####[facility] [address] [place], [place], [address] Basic Metabolic Profile (BMP )on 05-25-2025 BUN/CRE 34.0 RATIO High 10-20 [facility] Comment on above: Performed By: #### L 100.0500, L500.2500 ####[facility] [address] [place], [address] Calcium [Mass/Vol] 9.0 mg/dL Normal 7.6-11.0 [facility] Comment on above: Performed By: #### L 100.0500, L500.2500 ####[facility] [address] [place], [address] Chloride [Moles/Vol] 110 mmol/L High 98-108 [facility] Comment on above: Performed By: #### L 100.0500, L500.2500 ####[facility] [address] [place], [address] CO2 [Moles/Vol] 20.2 mmol/L Low 21.0-32.0 [facility] Comment on above: Performed By: #### L 100.0500, L500.2500 ####[facility] [address] [place], [address] Creatinine [Mass/Vol] 1.11 mg/dL Normal 0.70-1.20 [facility] Comment on above: Performed By: #### L 100.0500, L500.2500 ####[facility] [address] [place], [address] ECRCL 46.34 ml/min Low 50-250 [facility] Comment on above: Performed By: #### L 100.0500, L500.2500 ####[facility] [address] [place], [address] GAP 12 Normal 5-15 [facility] Comment on above: Performed By: #### L 100.0500, L500.2500 ####[facility] [address] [place], [address] GFR/1.73 sq M.predicted among non-blacks MDRD (S/P/Bld) [Vol rate/Area] 52 mL/min/{1.73_m2} Low >60 [facility] Comment on above: Result Comment: mL/m in/1.73m2 CKD-EPI Creatinine Equation (2020) Performed By: #### L 100.0500, L500.2500 ####[facility] [address] [place], [address] Glucose [Mass/Vol] 137 mg/dL High 70-99 [facility] Comment on above: Performed By: #### L 100.0500, L500.2500 ####[facility] [address] [place], [address] Potassium [Moles/Vol] 4.2 mmol/L Normal 3.3-5.1 [facility] Comment on above: Performed By: #### L 100.0500, L500.2500 ####[facility] [address] [place], [address] Sodium [Moles/Vol] 142 mmol/L Normal 133-145 [facility] Comment on above: Performed By: #### L 100.0500, L500.2500 ####[facility] [address] [place], [address] Urea nitrogen [Mass/Vol] 38 mg/dL High 4-19 [facility] Comment on above: Performed By: #### L 100.0500, L500.2500 ####[facility] [address] [place], [address] Bedside Glucoseon 05-25-2025 FINGERSTICK GLU 140 mg/dL High 74-106 [facility] Comment on above: Result Comment: JEREMIAS GEMENT OF PATIENT CARE PER NURSING PROTOCOL Performed By: #### L 501.080 ####[facility] [address] [place], [address] FINGERSTICK GLU 185 mg/dL High 74-106 [facility] Comment on above: Result Comment: JEREMIAS GEMENT OF PATIENT CARE PER NURSING PROTOCOL Performed By: #### L 501.080 ####[facility] [address] [place], [address] FINGERSTICK GLU 263 mg/dL High 74-106 [facility] Comment on above: Result Comment: JEREMIAS GEMENT OF PATIENT CARE PER NURSING PROTOCOL Performed By: #### L 501.080 ####[facility] [address] [place], [address] FINGERSTICK GLU 134 mg/dL High 74-106 [facility] Comment on above: Result Comment: JEREMIAS GEMENT OF PATIENT CARE PER NURSING PROTOCOL Performed By: #### L 501.080 ####[facility] [address] [place], [address] CBC-Complete Blood Cnt No Di ffon 05-25-2025 Erythrocyte distribution width (RBC) [Ratio] 15.5 % High 11.6-14.6 [facility] Comment on above: Performed By: #### L 100.0500, L500.2500 ####[facility] [address] [place], [address] Hematocrit (Bld) [Volume fraction] 26.6 % Low 37-47 [facility] Comment on above: Performed By: #### L 100.0500, L500.2500 ####[facility] [address] [place], [address] Hemoglobin (Bld) [Mass/Vol] 8.8 g/dL Low 12.0-15.0 [facility] Comment on above: Performed By: #### L 100.0500, L500.2500 ####[facility] [address] [place], [address] MCH (RBC) [Entitic mass] 29.5 pg Normal 27.0-32.0 [facility] Comment on above: Performed By: #### L 100.0500, L500.2500 ####[facility] [address] [place], [address] MCHC (RBC) [Mass/Vol] 33.1 g/dL Normal 32-36 [facility] Comment on above: Performed By: #### L 100.0500, L500.2500 ####[facility] [address] [place], [address] MCV (RBC) [Entitic vol] 89.3 fL Normal 81-99 [facility] Comment on above: Performed By: #### L 100.0500, L500.2500 ####[facility] [address] [place], [address] Platelet mean volume (Bld) [Entitic vol] 10.6 fL Normal 6.2-12.0 [facility] Comment on above: Performed By: #### L 100.0500, L500.2500 ####[facility] [address] [place], [address] Platelets (Bld) [#/Vol] 234 10*3/uL Normal 150-450 [facility] Comment on above: Performed By: #### L 100.0500, L500.2500 ####[facility] [address] [place], [address] RBC (Bld) [#/Vol] 2.98 10*6/uL Low 4.2-5.4 [facility] Comment on above: Performed By: #### L 100.0500, L500.2500 ####[facility] [address] [place], [address] RDW SD 50.9 fl High 35.1-43.9 [facility] Comment on above: Performed By: #### L 100.0500, L500.2500 ####[facility] [address] [place], [address] WBC (Bld) [#/Vol] 5.4 10*3/uL Normal 4.4-11.0 [facility] Comment on above: Performed By: #### L 100.0500, L500.2500 ####[facility] [address] [place], [address] Consultation - Surgicalon Consultation - Surgical Normal [facility] Electrocardiogram reportOrde red By: Michael Schultz on 05-25-2025 EKG study [facility] Other Phone: MR/PAT.ANEon 05-25-2025 MR/PAT.ANE Normal [facility] Type AND Screen - PAT ONLYon 05-25-2025 Ab SCREEN GEL Negative Normal [facility] Comment on above: Order Comment: Surge ry Date: 05/26/25Reason for Laboratory Test [id number] BYPASS Performed By: #### B TSPAT ####[facility] [address] [place], [address] Bedside Glucoseon 05-24-2025 FINGERSTICK GLU 133 mg/dL High [facility]106 [facility] Comment on above: Result Comment: JEREMIAS GEMENT OF PATIENT CARE PER NURSING PROTOCOL Performed By: #### L 501.080 ####[facility] [address] [place], [address] FINGERSTICK GLU 213 mg/dL High [address] [place] [address] Comment on above: Result Comment: JEREMIAS GEMENT OF PATIENT CARE PER NURSING PROTOCOL Performed By: #### L 501.080 ####[facility] [address] [place], [address] FINGERSTICK GLU 180 mg/dL High [address] [place] [address] Comment on above: Result Comment: JEREMIAS GEMENT OF PATIENT CARE PER NURSING PROTOCOL Performed By: #### L 501.080 ####[facility] [address] [place], [address] FINGERSTICK GLU 130 mg/dL High [address] [place] [address] Comment on above: Result Comment: JEREMIAS GEMENT OF PATIENT CARE PER NURSING PROTOCOL Performed By: #### L 501.080 ####[facility] [address] [place], [address] Basic Metabolic Profile (BMP )on 05-23-2025 BUN/CRE 42.0 RATIO High 10-20 [facility] Comment on above: Performed By: #### L 100.0500, L500.2500 ####[facility] [address] [place], [address] Calcium [Mass/Vol] 8.9 mg/dL Normal 7.6-11.0 [facility] Comment on above: Performed By: #### L 100.0500, L500.2500 ####[facility] [address] [place], [address] Chloride [Moles/Vol] 111 mmol/L High 98-108 [facility] Comment on above: Performed By: #### L 100.0500, L500.2500 ####[facility] [address] [place], [address] CO2 [Moles/Vol] 21.1 mmol/L Normal 21.0-32.0 [facility] Comment on above: Performed By: #### L 100.0500, L500.2500 ####[facility] [address] [place], [address] Creatinine [Mass/Vol] 0.91 mg/dL Normal 0.70-1.20 [facility] Comment on above: Performed By: #### L 100.0500, L500.2500 ####[facility] [address] [place], [address] ECRCL 56.52 ml/min Normal 50-250 [facility] Comment on above: Performed By: #### L 100.0500, L500.2500 ####[facility] [address] [place], [address] GAP 10 Normal 5-15 [facility] Comment on above: Performed By: #### L 100.0500, L500.2500 ####[facility] [address] [place], [address] GFR/1.73 sq M.predicted among non-blacks MDRD (S/P/Bld) [Vol rate/Area] 66 mL/min/{1.73_m2} Normal >60 [facility] Comment on above: Result Comment: mL/m in/1.73m2 CKD-EPI Creatinine Equation (2020) Performed By: #### L 100.0500, L500.2500 ####[facility] [address] [place], [address] Glucose [Mass/Vol] 89 mg/dL Normal 70-99 [facility] Comment on above: Performed By: #### L 100.0500, L500.2500 ####[facility] [address] [place], [address] Potassium [Moles/Vol] 3.9 mmol/L Normal 3.3-5.1 [facility] Comment on above: Result Comment: Hemo lysis present, Results??could be affected.?? Performed By: #### L 100.0500, L500.2500 ####[facility] [address] [place], [address] Sodium [Moles/Vol] 142 mmol/L Normal 133-145 [facility] Comment on above: Performed By: #### L 100.0500, L500.2500 ####[facility] [address] [place], [address] Urea nitrogen [Mass/Vol] 38 mg/dL High 4-19 [facility] Comment on above: Performed By: #### L 100.0500, L500.2500 ####[facility] [address] [place], [address] Bedside Glucoseon 05-23-2025 FINGERSTICK GLU 177 mg/dL High 74-106 [facility] Comment on above: Result Comment: JEREMIAS PADILLA OF PATIENT CARE PER NURSING PROTOCOL Performed By: #### L 501.080 ####[facility] [address] [place], [address] FINGERSTICK GLU 176 mg/dL High 74-106 [facility] Comment on above: Result Comment: JEREMIAS GEMENT OF PATIENT CARE PER NURSING PROTOCOL Performed By: #### L 501.080 ####[facility] [address] [place], [address] FINGERSTICK GLU 248 mg/dL High 74-106 [facility] Comment on above: Result Comment: JEREMIAS GEMENT OF PATIENT CARE PER NURSING PROTOCOL Performed By: #### L 501.080 ####[facility] [address] [place], [address] FINGERSTICK GLU 82 mg/dL Normal 74-106 [facility] Comment on above: Result Comment: JEREMIAS GEMENT OF PATIENT CARE PER NURSING PROTOCOL Performed By: #### L 501.080 ####[facility] [address] [place], [address] CBC-Complete Blood Cnt No Di ffon 05-23-2025 Erythrocyte distribution width (RBC) [Ratio] 15.9 % High 11.6-14.6 [facility] Comment on above: Performed By: #### L 100.0500, L500.2500 ####[facility] [address] [place], [address] Hematocrit (Bld) [Volume fraction] 27.6 % Low 37-47 [facility] Comment on above: Performed By: #### L 100.0500, L500.2500 ####[facility] [address] [place], [address] Hemoglobin (Bld) [Mass/Vol] 9.0 g/dL Low 12.0-15.0 [facility] Comment on above: Performed By: #### L 100.0500, L500.2500 ####[facility] [address] [place], [address] MCH (RBC) [Entitic mass] 29.4 pg Normal 27.0-32.0 [facility] Comment on above: Performed By: #### L 100.0500, L500.2500 ####[facility] [address] [place], [address] MCHC (RBC) [Mass/Vol] 32.6 g/dL Normal 32-36 [facility] Comment on above: Performed By: #### L 100.0500, L500.2500 ####[facility] [address] [place], [address] MCV (RBC) [Entitic vol] 90.2 fL Normal 81-99 [facility] Comment on above: Performed By: #### L 100.0500, L500.2500 ####[facility] [address] [place], [address] Platelet mean volume (Bld) [Entitic vol] 11.2 fL Normal 6.2-12.0 [facility] Comment on above: Performed By: #### L 100.0500, L500.2500 ####[facility] [address] [place], [address] Platelets (Bld) [#/Vol] 213 10*3/uL Normal 150-450 [facility] Comment on above: Performed By: #### L 100.0500, L500.2500 ####[facility] [address] [place], [address] RBC (Bld) [#/Vol] 3.06 10*6/uL Low 4.2-5.4 [facility] Comment on above: Performed By: #### L 100.0500, L500.2500 ####[facility] [address] [place], [address] RDW SD 52.3 fl High 35.1-43.9 [facility] Comment on above: Performed By: #### L 100.0500, L500.2500 ####[facility] [address] [place], [address] WBC (Bld) [#/Vol] 5.2 10*3/uL Normal 4.4-11.0 [facility] Comment on above: Performed By: #### L 100.0500, L500.2500 ####[facility] [address] [place], [address] Culture, Blood (WB)on 2024 CUB Blood cultures x2, f rom two different sites No growth in 5 days. Normal [facility] Comment on above: Performed By: #### M 200.1000 ####[facility] [address] [place], [address] Urine Cultureon 05-23-2025 URC Normal [facility] Comment on above: Performed By: #### L 400.0001, M100.2200 ####[facility] [address] [place], [address] 12 Lead EKGon 05-22-2025 12 Lead EKG Normal [facility] Absolute lymphocyte countOrd ered By: Heron Wilde on 05-22-2025 Lymphocytes Auto (Unsp spec) [#/Vol] 0.65 10*3/uL Low 0.83-4.51 [facility] Anion gap in Serum or Plasma Ordered By: Heron Wilde on 05-22-2025 Anion gap [Moles/Vol] 13 mmol/L 5-15 [facility] Automated lymphocyte count a s percentage of total leukocytesOrdered By: Heron Wilde on 05-22-2025 Lymphocytes/100 WBC Auto (Unsp spec) 9.1 % Low 19-41 [facility] BUN/creatinine ratioOrdered By: Heron Wilde on 05-22-2025 Urea nitrogen/Creatinine [Mass ratio] 45.7 mg/mg High 10-20 [facility] Basophil percentageOrdered B y: Heron Wilde on 05-22-2025 Basophils/100 WBC (Bld) 0.7 % 0-1 [facility] Bedside Glucoseon 05-22-2025 FINGERSTICK GLU 160 mg/dL High 74-106 [facility] Comment on above: Result Comment: JEREMIAS GEMENT OF PATIENT CARE PER NURSING PROTOCOL Performed By: #### L 501.080 ####[facility] [address] [place], [address] FINGERSTICK GLU 269 mg/dL High 74-106 [facility] Comment on above: Result Comment: JEREMIAS GEMENT OF PATIENT CARE PER NURSING PROTOCOL Performed By: #### L 501.080 ####[facility] [address] [place], [address] Bilirubin, totalOrdered By: Heron Wilde on 05-22-2025 Bilirubin [Mass/Vol] 0.33 mg/dL 0.00-1.30 [facility] CBC W/Diff, Automatedon Absolute Lymph 0.65 X10 3/uL Low 0.83-4.51 [facility] Comment on above: Performed By: #### L 100.0100, L500.4050 ####[facility] [address] [place], [address] Absolute Neut 5.6 X10 3/uL Normal 2.0-7.7 [facility] Comment on above: Performed By: #### L 100.0100, L500.4050 ####[facility] [address] [place], [address] Basophils/100 WBC (Bld) 0.7 % Normal 0-1 [facility] Comment on above: Performed By: #### L 100.0100, L500.4050 ####[facility] [address] [place], [address] Eosinophils/100 WBC (Bld) 1.5 % Normal 0-5 [facility] Comment on above: Performed By: #### L 100.0100, L500.4050 ####[facility] [address] [place], [address] Erythrocyte distribution width (RBC) [Ratio] 15.8 % High 11.6-14.6 [facility] Comment on above: Performed By: #### L 100.0100, L500.4050 ####[facility] [address] [place], [address] Hematocrit (Bld) [Volume fraction] 29.6 % Low 37-47 [facility] Comment on above: Performed By: #### L 100.0100, L500.4050 ####[facility] [address] [place], [address] Hemoglobin (Bld) [Mass/Vol] 9.5 g/dL Low 12.0-15.0 [facility] Comment on above: Performed By: #### L 100.0100, L500.4050 ####[facility] [address] [place], [address] IG% 1.300 High 0.0-0.9 [facility] Comment on above: Result Comment: IG% - Immature Granulocytes (promyelocytes, myelocytes andmetamyelocytes) > 1% indicates that a LEFT SHIFT is Present. Performed By: #### L 100.0100, L500.4050 ####[facility] [address] [place], [address] Lymphocytes/100 WBC (Bld) 9.1 % Low 19-41 [facility] Comment on above: Performed By: #### L 100.0100, L500.4050 ####[facility] [address] [place], [address] MCH (RBC) [Entitic mass] 29.0 pg Normal 27.0-32.0 [facility] Comment on above: Performed By: #### L 100.0100, L500.4050 ####[facility] [address] [place], [address] MCHC (RBC) [Mass/Vol] 32.1 g/dL Normal 32-36 [facility] Comment on above: Performed By: #### L 100.0100, L500.4050 ####[facility] [address] [place], [address] MCV (RBC) [Entitic vol] 90.2 fL Normal 81-99 [facility] Comment on above: Performed By: #### L 100.0100, L500.4050 ####[facility] [address] [place], [address] Monocytes/100 WBC (Bld) 9.0 % Normal 0-10 [facility] Comment on above: Performed By: #### L 100.0100, L500.4050 ####[facility] [address] [place], [address] Neutrophils/100 WBC (Bld) 78.4 % High 47-70 [facility] Comment on above: Performed By: #### L 100.0100, L500.4050 ####[facility] [address] [place], [address] Nucleated RBC (Bld) [#/Vol] 0 10*3/uL Normal 0-5 [facility] Comment on above: Performed By: #### L 100.0100, L500.4050 ####[facility] [address] [place], [address] Platelet mean volume (Bld) [Entitic vol] 10.9 fL Normal 6.2-12.0 [facility] Comment on above: Performed By: #### L 100.0100, L500.4050 ####[facility] [address] [place], [address] Platelets (Bld) [#/Vol] 214 10*3/uL Normal 150-450 [facility] Comment on above: Performed By: #### L 100.0100, L500.4050 ####[facility] [address] [place], [address] RBC (Bld) [#/Vol] 3.28 10*6/uL Low 4.2-5.4 [facility] Comment on above: Performed By: #### L 100.0100, L500.4050 ####[facility] [address] [place], [address] RDW SD 52.4 fl High 35.1-43.9 [facility] Comment on above: Performed By: #### L 100.0100, L500.4050 ####[facility] [address] [place], [address] WBC (Bld) [#/Vol] 7.2 10*3/uL Normal 4.4-11.0 [facility] Comment on above: Performed By: #### L 100.0100, L500.4050 ####[facility] [address] [place], [address] Carbon dioxide, total [Moles /volume] in Central venous bloodOrdered By: Heron Wilde on 05-22-2025 CO2 [Moles/Vol] 19.0 mmol/L Low 21.0-32.0 [facility] Chloride assayOrdered By: Main Wilde on 05-22-2025 Chloride [Moles/Vol] 109 mmol/L High 98-108 [facility] Comprehensive Metabolic Prof ilon 05-22-2025 Albumin [Mass/Vol] 2.9 g/dL Low 3.4-4.8 [facility] Comment on above: Performed By: #### L 100.0100, L500.4050 ####[facility] [address] [place], [address] Albumin/Globulin [Mass ratio] 0.9 {ratio} Normal 0.9-2.4 [facility] Comment on above: Performed By: #### L 100.0100, L500.4050 ####[facility] [address] [place], [address] ALK PHOS 55 U/L Normal 35-104 [facility] Comment on above: Performed By: #### L 100.0100, L500.4050 ####[facility] [address] [place], [address] ALT [Catalytic activity/Vol] 41 U/L High <=34 [facility] Comment on above: Performed By: #### L 100.0100, L500.4050 ####[facility] [address] [place], [address] AST [Catalytic activity/Vol] 58 U/L High <=31 [facility] Comment on above: Performed By: #### L 100.0100, L500.4050 ####[facility] [address] [place], [address] Bilirubin [Mass/Vol] 0.33 mg/dL Normal 0.00-1.30 [facility] Comment on above: Performed By: #### L 100.0100, L500.4050 ####[facility] [address] [place], [address] BUN/CRE 45.7 RATIO High 10-20 [facility] Comment on above: Performed By: #### L 100.0100, L500.4050 ####[facility] [address] [place], [address] Calcium [Mass/Vol] 9.2 mg/dL Normal 7.6-11.0 [facility] Comment on above: Performed By: #### L 100.0100, L500.4050 ####[facility] [address] [place], [address] Chloride [Moles/Vol] 109 mmol/L High 98-108 [facility] Comment on above: Performed By: #### L 100.0100, L500.4050 ####[facility] [address] [place], [address] CO2 [Moles/Vol] 19.0 mmol/L Low 21.0-32.0 [facility] Comment on above: Performed By: #### L 100.0100, L500.4050 ####[facility] [address] [place], [address] Creatinine [Mass/Vol] 1.22 mg/dL High 0.70-1.20 [facility] Comment on above: Performed By: #### L 100.0100, L500.4050 ####[facility] [address] [place], [address] ECRCL 42.00 ml/min Low 50-250 [facility] Comment on above: Performed By: #### L 100.0100, L500.4050 ####[facility] [address] [place], [address] GAP 13 Normal 5-15 [facility] Comment on above: Performed By: #### L 100.0100, L500.4050 ####[facility] [address] [place], [address] GFR/1.73 sq M.predicted among non-blacks MDRD (S/P/Bld) [Vol rate/Area] 47 mL/min/{1.73_m2} Low >60 [facility] Comment on above: Result Comment: mL/m in/1.73m2 CKD-EPI Creatinine Equation (2020) Performed By: #### L 100.0100, L500.4050 ####[facility] [address] [place], [address] Globulin (S) [Mass/Vol] 3.3 g/dL Normal 2.2-4.2 [facility] Comment on above: Performed By: #### L 100.0100, L500.4050 ####[facility] [address] [place], [address] Glucose [Mass/Vol] 216 mg/dL High 70-99 [facility] Comment on above: Performed By: #### L 100.0100, L500.4050 ####[facility] [address] [place], [address] Potassium [Moles/Vol] 4.3 mmol/L Normal 3.3-5.1 [facility] Comment on above: Performed By: #### L 100.0100, L500.4050 ####[facility] [address] [place], [address] Sodium [Moles/Vol] 140 mmol/L Normal 133-145 [facility] Comment on above: Performed By: #### L 100.0100, L500.4050 ####[facility] [address] [place], [address] T PROT 6.2 g/dL Normal 5.9-8.4 [facility] Comment on above: Performed By: #### L 100.0100, L500.4050 ####[facility] [address] [place], [address] Urea nitrogen [Mass/Vol] 56 mg/dL High 4-19 [facility] Comment on above: Performed By: #### L 100.0100, L500.4050 ####[facility] [address] [place], [address] Emergency Department Summary on 05-22-2025 Emergency Department Summary Normal [facility] Eosinophil percentageOrdered By: Heron Wilde on 05-22-2025 Eosinophils/100 WBC (Bld) 1.5 % 0-5 [facility] Erythrocyte distribution wid th ratioOrdered By: Heron Wilde on 05-22-2025 Erythrocyte distribution width (RBC) [Ratio] 15.8 % High 11.6-14.6 [facility] Erythrocyte distribution wid th standard deviationOrdered By: Heron Wilde on 05-22-2025 Erythrocyte distribution width (RBC) [Ratio] 52.4 fl High 35.1-43.9 [facility] Glomerular filtration rate ( GFR) estimation/1.73 sq m using serum, plasma, or whole bOrdered By: Heron Wilde on 05-22-2025 GFR/1.73 sq M.predicted among non-blacks MDRD (S/P/Bld) [Vol rate/Area] 47 mL/min/{1.73_m2} Low >60 [facility] H AND P Exam - Hospitaliston 05-22-2025 H&P Exam - Hospitalist Normal [facility] Hematocrit Auto (Bld) [Volum e fraction]Ordered By: Heron Wilde on 05-22-2025 Hematocrit (Bld) [Volume fraction] 29.6 % Low 37-47 [facility] Hemoglobin measurementOrdere d By: Heron Wilde on 05-22-2025 Hemoglobin (Bld) [Mass/Vol] 9.5 g/dL Low 12.0-15.0 [facility] Immature granulocytes/100 WB C Auto (Bld)Ordered By: Heron Wilde on 05-22-2025 Immature granulocytes/100 WBC (Bld) 1.300 % High 0.0-0.9 [facility] MCV (mean corpuscular volume ) determinationOrdered By: Heron Wilde on 05-22-2025 MCV (RBC) [Entitic vol] 90.2 fL 81-99 [facility] Mean corpuscular hemoglobin (MCH) determinationOrdered By: Heron Wilde on 05-22-2025 MCH (RBC) [Entitic mass] 29.0 pg 27.0-32.0 [facility] Monocyte percentageOrdered B y: Heron Wilde on 05-22-2025 Monocytes/100 WBC (Bld) 9.0 % 0-10 [facility] Neutrophil percentageOrdered By: Heron Wilde on 05-22-2025 Neutrophils/100 WBC (Bld) 78.4 % High 47-70 [facility] No Panel InformationOrdered By: Heron Wilde on 05-22-2025 58 U/L High <32 [facility] Platelet countOrdered By: Main Wilde on 05-22-2025 Platelets (Bld) [#/Vol] 214 10*3/uL 150-450 [facility] Potassium measurement (mass/ volume)Ordered By: Heron Wilde on 05-22-2025 Potassium (Unsp spec) [Mass/Vol] 4.3 mmol/L 3.3-5.1 [facility] RBC Auto (Bld) [#/Vol]Ordere d By: Heron Wilde on 05-22-2025 RBC (Bld) [#/Vol] 3.28 10*6/uL Low 4.2-5.4 [facility] Serum creatinine measurement (mass/volume)Ordered By: Heron Wilde on 05-22-2025 Creatinine [Mass/Vol] 1.22 mg/dL High 0.70-1.20 [facility] Serum globulin measurementOr dered By: Heron Wilde on 05-22-2025 Globulin (S) [Mass/Vol] 3.3 g/dL 2.2-4.2 [facility] Serum glucose measurement (m ass/volume)Ordered By: Heron Wilde on 05-22-2025 Glucose [Mass/Vol] 216 mg/dL High 70-99 [facility] Serum or plasma alanine anaya otransferase (ALT) measurementOrdered By: Heron Wilde on 05-22-2025 ALT [Catalytic activity/Vol] 41 U/L High <35 [facility] Serum or plasma albumin natalia urement (mass/volume)Ordered By: Heron Wilde on 05-22-2025 Albumin [Mass/Vol] 2.9 g/dL Low 3.4-4.8 [facility] Serum or plasma albumin/glob ulin mass ratioOrdered By: Heron Wilde on 05-22-2025 Albumin/Globulin [Mass ratio] 0.9 {ratio} 0.9-2.4 [facility] Serum or plasma alkaline chelsie sphatase measurementOrdered By: Heron Wilde on 05-22-2025 ALP [Catalytic activity/Vol] 55 U/L 35-104 [facility] Serum or plasma calcium natalia urement (mass/volume)Ordered By: Heron Wilde on 05-22-2025 Calcium [Mass/Vol] 9.2 mg/dL 7.6-11.0 [facility] Serum or plasma urea nitroge n measurement (mass/volume)Ordered By: Heron Wilde on 05-22-2025 Urea nitrogen [Mass/Vol] 56 mg/dL High 4-19 [facility] Sodium levelOrdered By: Deborah Wilde on 05-22-2025 Sodium [Moles/Vol] 140 mmol/L 133-145 [facility] Total proteinOrdered By: Anastacio Wilde on 05-22-2025 Protein [Mass/Vol] 6.2 g/dL 5.9-8.4 [facility] Urinalysis, Completeon 05-22 BACTERIA Normal None Seen [facility] Comment on above: Order Comment: CLEAN CATCH Result Comment: Canc elled via OM: MD Ordered Performed By: #### L 400.0001 ####[facility] [address] [place], [address] BILIRUBIN URINE Normal Negative [facility] Comment on above: Order Comment: CLEAN CATCH Result Comment: Canc elled via OM: MD Ordered Performed By: #### L 400.0001 ####[facility] [address] [place], [address] Clarity (U) Normal Clear [facility] Comment on above: Order Comment: CLEAN CATCH Result Comment: Canc elled via OM: MD Ordered Performed By: #### L 400.0001 ####[facility] [address] [place], [address] Color (U) Normal Yellow [facility] Comment on above: Order Comment: CLEAN CATCH Result Comment: Canc elled via OM: MD Ordered Performed By: #### L 400.0001 ####[facility] [address] [place], [address] EPI,SQUAMOUS Normal 5-10 [facility] Comment on above: Order Comment: CLEAN CATCH Result Comment: Canc elled via OM: MD Ordered Performed By: #### L 400.0001 ####[facility] [address] [place], [address] GLUCOSE, UR Normal Normal [facility] Comment on above: Order Comment: CLEAN CATCH Result Comment: Canc elled via OM: MD Ordered Performed By: #### L 400.0001 ####[facility] [address] [place], [address] KETONE UR Normal Negative [facility] Comment on above: Order Comment: CLEAN CATCH Result Comment: Canc elled via OM: MD Ordered Performed By: #### L 400.0001 ####[facility] [address] [place], [address] LEUK ESTERASE Normal Negative [facility] Comment on above: Order Comment: CLEAN CATCH Result Comment: Canc elled via OM: MD Ordered Performed By: #### L 400.0001 ####[facility] [address] [place], [address] Mucus Ql (Urine sed) Normal [facility] Comment on above: Order Comment: CLEAN CATCH Result Comment: Canc elled via OM: MD Ordered Performed By: #### L 400.0001 ####[facility] [address] [place], [address] Nitrite Ql (U) Normal Negative [facility] Comment on above: Order Comment: CLEAN CATCH Result Comment: Canc elled via OM: MD Ordered Performed By: #### L 400.0001 ####[facility] [address] [place], [address] OCCULT BLOOD-UR Normal Negative [facility] Comment on above: Order Comment: CLEAN CATCH Result Comment: Canc elled via OM: MD Ordered Performed By: #### L 400.0001 ####[facility] [address] [place], [address] pH UR Normal 5.0 - 8.0 [facility] Comment on above: Order Comment: CLEAN CATCH Result Comment: Canc elled via OM: MD Ordered Performed By: #### L 400.0001 ####[facility] [address] [place], [address] PROT DIPSTX Normal Negative [facility] Comment on above: Order Comment: CLEAN CATCH Result Comment: Canc elled via OM: MD Ordered Performed By: #### L 400.0001 ####[facility] [address] [place], [address] RBC Normal 0-5 [facility] Comment on above: Order Comment: CLEAN CATCH Result Comment: Canc elled via OM: MD Ordered Performed By: #### L 400.0001 ####[facility] [address] [place], [address] SP.GR. DIPSTX Normal 1.002-1.030 [facility] Comment on above: Order Comment: CLEAN CATCH Result Comment: Canc elled via OM: MD Ordered Performed By: #### L 400.0001 ####[facility] [address] [place], [address] UR Preservative Normal [facility] Comment on above: Order Comment: CLEAN CATCH Result Comment: Canc elled via OM: MD Ordered Performed By: #### L 400.0001 ####[facility] [address] [place], [address] UROBILI Normal Normal [facility] Comment on above: Order Comment: CLEAN CATCH Result Comment: Canc elled via OM: MD Ordered Performed By: #### L 400.0001 ####[facility] [address] [place], [address] WBC Normal 0-5 [facility] Comment on above: Order Comment: CLEAN CATCH Result Comment: Canc elled via OM: MD Ordered Performed By: #### L 400.0001 ####[facility] [address] [place], [address] White blood cell (WBC) count Ordered By: Heron Wilde on 05-22-2025 WBC (Bld) [#/Vol] 7.2 10*3/uL 4.4-11.0 [facility] Absolute lymphocyte countOrd ered By: Michaela Joshua on 05-21-2025 Lymphocytes Auto (Unsp spec) [#/Vol] 0.82 10*3/uL Low 0.83-4.51 [facility] Anion gap in Serum or Plasma Ordered By: Michaela Joshua on 05-21-2025 Anion gap [Moles/Vol] 10 mmol/L 5-15 [facility] Automated lymphocyte count a s percentage of total leukocytesOrdered By: Michaela Joshua on 05-21-2025 Lymphocytes/100 WBC Auto (Unsp spec) 17.7 % Low 19-41 [facility] BUN/creatinine ratioOrdered By: Michaela Joshua on 05-21-2025 Urea nitrogen/Creatinine [Mass ratio] 37.7 mg/mg High 10-20 [facility] Basic Metabolic Profile (BMP )on 05-21-2025 BUN/CRE 37.7 RATIO High 10-20 [facility] Comment on above: Performed By: #### L 100.0100, L500.2500 ####[facility] [address] [place], [address] Calcium [Mass/Vol] 8.9 mg/dL Normal 7.6-11.0 [facility] Comment on above: Performed By: #### L 100.0100, L500.2500 ####[facility] [address] [place], [address] Chloride [Moles/Vol] 107 mmol/L Normal 98-108 [facility] Comment on above: Performed By: #### L 100.0100, L500.2500 ####[facility] [address] [place], [address] CO2 [Moles/Vol] 20.9 mmol/L Low 21.0-32.0 [facility] Comment on above: Performed By: #### L 100.0100, L500.2500 ####[facility] [address] [place], [address] Creatinine [Mass/Vol] 1.37 mg/dL High 0.70-1.20 [facility] Comment on above: Performed By: #### L 100.0100, L500.2500 ####[facility] [address] [place], [address] ECRCL 37.42 ml/min Low 50-250 [facility] Comment on above: Performed By: #### L 100.0100, L500.2500 ####[facility] [address] [place], [address] GAP 10 Normal 5-15 [facility] Comment on above: Performed By: #### L 100.0100, L500.2500 ####[facility] [address] [place], [address] GFR/1.73 sq M.predicted among non-blacks MDRD (S/P/Bld) [Vol rate/Area] 41 mL/min/{1.73_m2} Low >60 [facility] Comment on above: Result Comment: mL/m in/1.73m2 CKD-EPI Creatinine Equation (2020) Performed By: #### L 100.0100, L500.2500 ####[facility] [address] [place], [address] Glucose [Mass/Vol] 192 mg/dL High 70-99 [facility] Comment on above: Performed By: #### L 100.0100, L500.2500 ####[facility] [address] [place], [address] Potassium [Moles/Vol] 4.3 mmol/L Normal 3.3-5.1 [facility] Comment on above: Performed By: #### L 100.0100, L500.2500 ####[facility] [address] [place], [address] Sodium [Moles/Vol] 138 mmol/L Normal 133-145 [facility] Comment on above: Performed By: #### L 100.0100, L500.2500 ####[facility] [address] [place], [address] Urea nitrogen [Mass/Vol] 52 mg/dL High 4-19 [facility] Comment on above: Performed By: #### L 100.0100, L500.2500 ####[facility] [address] [place], [address] Basophil percentageOrdered B y: Michaela Joshua on 05-21-2025 Basophils/100 WBC (Bld) 0.4 % 0-1 [facility] Bedside Glucoseon 05-21-2025 FINGERSTICK GLU 335 mg/dL High 74-106 [facility] Comment on above: Result Comment: JEREMIAS GEMENT OF PATIENT CARE PER NURSING PROTOCOL Performed By: #### L 501.080 ####[facility] [address] [place], [address] FINGERSTICK GLU 160 mg/dL High 74-106 [facility] Comment on above: Result Comment: JEREMIAS GEMENT OF PATIENT CARE PER NURSING PROTOCOL Performed By: #### L 501.080 ####[facility] [address] [place], [address] Blood cultureOrdered By: Rosalia Joshua on 05-21-2025 Bacteria identified Cx Nom (Bld) No growth in 5 days. [facility] CBC W/Diff, Automatedon 07-0 Absolute Lymph 0.82 X10 3/uL Low 0.83-4.51 [facility] Comment on above: Performed By: #### L 100.0100, L500.2500 ####[facility] [address] [place], [address] Absolute Neut 3.0 X10 3/uL Normal 2.0-7.7 [facility] Comment on above: Performed By: #### L 100.0100, L500.2500 ####[facility] [address] [place], [address] Basophils/100 WBC (Bld) 0.4 % Normal 0-1 [facility] Comment on above: Performed By: #### L 100.0100, L500.2500 ####[facility] [address] [place], [address] Eosinophils/100 WBC (Bld) 2.6 % Normal 0-5 [facility] Comment on above: Performed By: #### L 100.0100, L500.2500 ####[facility] [address] [place], [address] Erythrocyte distribution width (RBC) [Ratio] 15.9 % High 11.6-14.6 [facility] Comment on above: Performed By: #### L 100.0100, L500.2500 ####[facility] [address] [place], [address] Hematocrit (Bld) [Volume fraction] 25.4 % Low 37-47 [facility] Comment on above: Performed By: #### L 100.0100, L500.2500 ####[facility] [address] [place], [address] Hemoglobin (Bld) [Mass/Vol] 8.0 g/dL Low 12.0-15.0 [facility] Comment on above: Performed By: #### L 100.0100, L500.2500 ####[facility] [address] [place], [address] IG% 0.900 Normal 0.0-0.9 [facility] Comment on above: Result Comment: IG% - Immature Granulocytes (promyelocytes, myelocytes andmetamyelocytes) > 1% indicates that a LEFT SHIFT is Present. Performed By: #### L 100.0100, L500.2500 ####[facility] [address] [place], [address] Lymphocytes/100 WBC (Bld) 17.7 % Low 19-41 [facility] Comment on above: Performed By: #### L 100.0100, L500.2500 ####[facility] [address] [place], [address] MCH (RBC) [Entitic mass] 28.4 pg Normal 27.0-32.0 [facility] Comment on above: Performed By: #### L 100.0100, L500.2500 ####[facility] [address] [place], [address] MCHC (RBC) [Mass/Vol] 31.5 g/dL Low 32-36 [facility] Comment on above: Performed By: #### L 100.0100, L500.2500 ####[facility] [address] [place], [address] MCV (RBC) [Entitic vol] 90.1 fL Normal 81-99 [facility] Comment on above: Performed By: #### L 100.0100, L500.2500 ####[facility] [address] [place], [address] Monocytes/100 WBC (Bld) 13.6 % High 0-10 [facility] Comment on above: Performed By: #### L 100.0100, L500.2500 ####[facility] [address] [place], [address] Neutrophils/100 WBC (Bld) 64.8 % Normal 47-70 [facility] Comment on above: Performed By: #### L 100.0100, L500.2500 ####[facility] [address] [place], [address] Nucleated RBC (Bld) [#/Vol] 0 10*3/uL Normal 0-5 [facility] Comment on above: Performed By: #### L 100.0100, L500.2500 ####[facility] [address] [place], [address] Platelet mean volume (Bld) [Entitic vol] 11.8 fL Normal 6.2-12.0 [facility] Comment on above: Performed By: #### L 100.0100, L500.2500 ####[facility] [address] [place], [address] Platelets (Bld) [#/Vol] 167 10*3/uL Normal 150-450 [facility] Comment on above: Performed By: #### L 100.0100, L500.2500 ####[facility] [address] [place], [address] RBC (Bld) [#/Vol] 2.82 10*6/uL Low 4.2-5.4 [facility] Comment on above: Performed By: #### L 100.0100, L500.2500 ####[facility] [address] [place], [address] RDW SD 53.0 fl High 35.1-43.9 [facility] Comment on above: Performed By: #### L 100.0100, L500.2500 ####[facility] [address] [place], [address] WBC (Bld) [#/Vol] 4.6 10*3/uL Normal 4.4-11.0 [facility] Comment on above: Performed By: #### L 100.0100, L500.2500 ####[facility] [address] [place], [address] Carbon dioxide, total [Moles /volume] in Central venous bloodOrdered By: Michaela Joshua on 05-21-2025 CO2 [Moles/Vol] 20.9 mmol/L Low 21.0-32.0 [facility] Chloride assayOrdered By: Arti Joshua on 05-21-2025 Chloride [Moles/Vol] 107 mmol/L 98-108 [facility] Eosinophil percentageOrdered By: Michaela Joshua on 05-21-2025 Eosinophils/100 WBC (Bld) 2.6 % 0-5 [facility] Erythrocyte distribution wid th ratioOrdered By: Michaela Joshua on 05-21-2025 Erythrocyte distribution width (RBC) [Ratio] 15.9 % High 11.6-14.6 [facility] Erythrocyte distribution wid th standard deviationOrdered By: Michaela Joshua on 05-21-2025 Erythrocyte distribution width (RBC) [Ratio] 53.0 fl High 35.1-43.9 [facility] Glomerular filtration rate ( GFR) estimation/1.73 sq m using serum, plasma, or whole bOrdered By: Michaela Joshua on 05-21-2025 GFR/1.73 sq M.predicted among non-blacks MDRD (S/P/Bld) [Vol rate/Area] 41 mL/min/{1.73_m2} Low >60 [facility] Glucose measurement at bedsi deOrdered By: Michaela Joshua on 05-21-2025 Glucose [Mass/Vol] 335 mg/dL High 74-106 [facility] Gram Stainon 05-21-2025 GS UNK UNK COLLECTED IN OR, INCISIONAL BONE CORTEX LT. ANKLE Gram Stain Rare Epithelial cells Rare Gram positive cocci No White Blood Cells Normal [facility] Comment on above: Performed By: #### M 100.3000, M100.4001, M600.2200, M100.2000, M600.2000 ####[facility] [address] [place], [place], [address] Hematocrit Auto (Bld) [Volum e fraction]Ordered By: Michaela Joshua on 05-21-2025 Hematocrit (Bld) [Volume fraction] 25.4 % Low 37-47 [facility] Hemoglobin measurementOrdere d By: Michaela Joshua on 05-21-2025 Hemoglobin (Bld) [Mass/Vol] 8.0 g/dL Low 12.0-15.0 [facility] Immature granulocytes/100 WB C Auto (Bld)Ordered By: Michaela Joshua on 05-21-2025 Immature granulocytes/100 WBC (Bld) 0.900 % 0.0-0.9 [facility] MCV (mean corpuscular volume ) determinationOrdered By: Michaela Joshua on 05-21-2025 MCV (RBC) [Entitic vol] 90.1 fL 81-99 [facility] Mean corpuscular hemoglobin (MCH) determinationOrdered By: Michaela Joshua on 05-21-2025 MCH (RBC) [Entitic mass] 28.4 pg 27.0-32.0 [facility] Monocyte percentageOrdered B y: Michaela Joshua on 05-21-2025 Monocytes/100 WBC (Bld) 13.6 % High 0-10 [facility] Neutrophil percentageOrdered By: Michaela Joshua on 05-21-2025 Neutrophils/100 WBC (Bld) 64.8 % 47-70 [facility] Platelet countOrdered By: Arti Joshua on 05-21-2025 Platelets (Bld) [#/Vol] 167 10*3/uL 150-450 [facility] Potassium measurement (mass/ volume)Ordered By: Michaela Joshua on 05-21-2025 Potassium (Unsp spec) [Mass/Vol] 4.3 mmol/L 3.3-5.1 [facility] RBC Auto (Bld) [#/Vol]Ordere d By: Michaela Joshua on 05-21-2025 RBC (Bld) [#/Vol] 2.82 10*6/uL Low 4.2-5.4 [facility] Serum creatinine measurement (mass/volume)Ordered By: Michaela Joshua on 05-21-2025 Creatinine [Mass/Vol] 1.37 mg/dL High 0.70-1.20 [facility] Serum glucose measurement (m ass/volume)Ordered By: Michaela Joshua on 05-21-2025 Glucose [Mass/Vol] 192 mg/dL High 70-99 [facility] Serum or plasma calcium natalia urement (mass/volume)Ordered By: Michaela Joshua on 05-21-2025 Calcium [Mass/Vol] 8.9 mg/dL 7.6-11.0 [facility] Serum or plasma urea nitroge n measurement (mass/volume)Ordered By: Michaela Joshua on 05-21-2025 Urea nitrogen [Mass/Vol] 52 mg/dL High 4-19 [facility] Sodium levelOrdered By: Yuliana Joshua on 05-21-2025 Sodium [Moles/Vol] 138 mmol/L 133-145 [facility] White blood cell (WBC) count Ordered By: Michaela Joshua on 05-21-2025 WBC (Bld) [#/Vol] 4.6 10*3/uL 4.4-11.0 [facility] Anaerobic cultureOrdered By: Patel Irene on 05-20-2025 Bacteria identified Anaer cx Nom (Unsp spec) Prevotella oralis Abnormal [facility] Bacteria identified Anaer cx Nom (Unsp spec) Actinomyces naeslundii Abnormal [facility] Bacteria identified Anaer cx Nom (Unsp spec) Anaerobic cocci Abnormal [facility] Basic Metabolic Profile (BMP )on 05-20-2025 BUN/CRE 38.6 RATIO High 10-20 [facility] Comment on above: Performed By: #### L 500.2500, L100.0100 ####[facility] [address] [place], [address] Calcium [Mass/Vol] 8.8 mg/dL Normal 7.6-11.0 [facility] Comment on above: Performed By: #### L 500.2500, L100.0100 ####[facility] [address] [place], [address] Chloride [Moles/Vol] 107 mmol/L Normal 98-108 [facility] Comment on above: Performed By: #### L 500.2500, L100.0100 ####[facility] [address] [place], [address] CO2 [Moles/Vol] 18.3 mmol/L Low 21.0-32.0 [facility] Comment on above: Performed By: #### L 500.2500, L100.0100 ####[facility] [address] [place], [address] Creatinine [Mass/Vol] 1.49 mg/dL High 0.70-1.20 [facility] Comment on above: Performed By: #### L 500.2500, L100.0100 ####[facility] [address] [place], [address] ECRCL 34.43 ml/min Low 50-250 [facility] Comment on above: Performed By: #### L 500.2500, L100.0100 ####[facility] [address] [place], [address] GAP 12 Normal 5-15 [facility] Comment on above: Performed By: #### L 500.2500, L100.0100 ####[facility] [address] [place], [address] GFR/1.73 sq M.predicted among non-blacks MDRD (S/P/Bld) [Vol rate/Area] 37 mL/min/{1.73_m2} Low >60 [facility] Comment on above: Result Comment: mL/m in/1.73m2 CKD-EPI Creatinine Equation (2020) Performed By: #### L 500.2500, L100.0100 ####[facility] [address] [place], [address] Glucose [Mass/Vol] 143 mg/dL High 70-99 [facility] Comment on above: Performed By: #### L 500.2500, L100.0100 ####[facility] [address] [place], [address] Potassium [Moles/Vol] 4.0 mmol/L Normal 3.3-5.1 [facility] Comment on above: Performed By: #### L 500.2500, L100.0100 ####[facility] [address] [place], [address] Sodium [Moles/Vol] 138 mmol/L Normal 133-145 [facility] Comment on above: Performed By: #### L 500.2500, L100.0100 ####[facility] [address] [place], [address] Urea nitrogen [Mass/Vol] 58 mg/dL High 4-19 [facility] Comment on above: Performed By: #### L 500.2500, L100.0100 ####[facility] [address] [place], [address] Bedside Glucoseon 05-20-2025 FINGERSTICK GLU 229 mg/dL High 74-106 [facility] Comment on above: Result Comment: JEREMIAS GEMENT OF PATIENT CARE PER NURSING PROTOCOL Performed By: #### L 501.080 ####[facility] [address] [place], [address] FINGERSTICK GLU 119 mg/dL High 74-106 [facility] Comment on above: Result Comment: JEREMIAS GEMENT OF PATIENT CARE PER NURSING PROTOCOL Performed By: #### L 501.080 ####[facility] [address] [place], [address] FINGERSTICK GLU 133 mg/dL High 74-106 [facility] Comment on above: Result Comment: JEREMIAS GEMENT OF PATIENT CARE PER NURSING PROTOCOL Performed By: #### L 501.080 ####[facility] [address] [place], [address] FINGERSTICK GLU 143 mg/dL High 74-106 [facility] Comment on above: Result Comment: JEREMIAS GEMENT OF PATIENT CARE PER NURSING PROTOCOL Performed By: #### L 501.080 ####[facility] [address] [place], [address] CBC W/Diff, Automatedon 07-0 Absolute Lymph 0.68 X10 3/uL Low 0.83-4.51 [facility] Comment on above: Performed By: #### L 500.2500, L100.0100 ####[facility] [address] [place], [address] Absolute Neut 3.7 X10 3/uL Normal 2.0-7.7 [facility] Comment on above: Performed By: #### L 500.2500, L100.0100 ####[facility] [address] [place], [address] Basophils/100 WBC (Bld) 0.6 % Normal 0-1 [facility] Comment on above: Performed By: #### L 500.2500, L100.0100 ####[facility] [address] [place], [address] Eosinophils/100 WBC (Bld) 2.6 % Normal 0-5 [facility] Comment on above: Performed By: #### L 500.2500, L100.0100 ####[facility] [address] [place], [address] Erythrocyte distribution width (RBC) [Ratio] 15.8 % High 11.6-14.6 [facility] Comment on above: Performed By: #### L 500.2500, L100.0100 ####[facility] [address] [place], [address] Hematocrit (Bld) [Volume fraction] 27.2 % Low 37-47 [facility] Comment on above: Performed By: #### L 500.2500, L100.0100 ####[facility] [address] [place], [address] Hemoglobin (Bld) [Mass/Vol] 8.9 g/dL Low 12.0-15.0 [facility] Comment on above: Performed By: #### L 500.2500, L100.0100 ####[facility] [address] [place], [address] IG% 0.600 Normal 0.0-0.9 [facility] Comment on above: Result Comment: IG% - Immature Granulocytes (promyelocytes, myelocytes andmetamyelocytes) > 1% indicates that a LEFT SHIFT is Present. Performed By: #### L 500.2500, L100.0100 ####[facility] [address] [place], [address] Lymphocytes/100 WBC (Bld) 12.8 % Low 19-41 [facility] Comment on above: Performed By: #### L 500.2500, L100.0100 ####[facility] [address] [place], [address] MCH (RBC) [Entitic mass] 28.8 pg Normal 27.0-32.0 [facility] Comment on above: Performed By: #### L 500.2500, L100.0100 ####[facility] [address] [place], [address] MCHC (RBC) [Mass/Vol] 32.7 g/dL Normal 32-36 [facility] Comment on above: Performed By: #### L 500.2500, L100.0100 ####[facility] [address] [place], [address] MCV (RBC) [Entitic vol] 88.0 fL Normal 81-99 [facility] Comment on above: Performed By: #### L 500.2500, L100.0100 ####[facility] [address] [place], [address] Monocytes/100 WBC (Bld) 13.5 % High 0-10 [facility] Comment on above: Performed By: #### L 500.2500, L100.0100 ####[facility] [address] [place], [address] Neutrophils/100 WBC (Bld) 69.9 % Normal 47-70 [facility] Comment on above: Performed By: #### L 500.2500, L100.0100 ####[facility] [address] [place], [address] Nucleated RBC (Bld) [#/Vol] 0 10*3/uL Normal 0-5 [facility] Comment on above: Performed By: #### L 500.2500, L100.0100 ####[facility] [address] [place], [address] Platelet mean volume (Bld) [Entitic vol] 11.8 fL Normal 6.2-12.0 [facility] Comment on above: Performed By: #### L 500.2500, L100.0100 ####[facility] [address] [place], [address] Platelets (Bld) [#/Vol] 165 10*3/uL Normal 150-450 [facility] Comment on above: Performed By: #### L 500.2500, L100.0100 ####[facility] [address] [place], [address] RBC (Bld) [#/Vol] 3.09 10*6/uL Low 4.2-5.4 [facility] Comment on above: Performed By: #### L 500.2500, L100.0100 ####[facility] [address] [place], [address] RDW SD 50.9 fl High 35.1-43.9 [facility] Comment on above: Performed By: #### L 500.2500, L100.0100 ####[facility] [address] [place], [address] WBC (Bld) [#/Vol] 5.3 10*3/uL Normal 4.4-11.0 [facility] Comment on above: Performed By: #### L 500.2500, L100.0100 ####[facility] [address] [place], [address] Fungus cultureOrdered By: Marcie Irene on 05-20-2025 Fungus identified Cx Nom (Unsp spec) [facility] Fungus stainOrdered By: Filemon Irene on 05-20-2025 Fungus identified Fungus stain Nom (Unsp spec) [facility] Gram stainOrdered By: Keri Irene on 05-20-2025 Microscopic observation Gram stain Nom (Unsp spec) [facility] MR/POSTOP.ANEon 05-20-2025 MR/POSTOP.ANE Normal [facility] MR/NMUEQGUN3lu 05-20-2025 MR/POSTOPAN2 Normal [facility] Operative Reporton Operative Report Normal [facility] Routine wound cultureOrdered By: Patel Irene on 05-20-2025 Microbial culture, routine Meth. resistant Staph. aureus Abnormal [facility] Wound Cultureon 05-20-2025 WC Normal [facility] Comment on above: Performed By: #### M 100.3000, M100.2000, M8200.1075 ####[facility] [address] [place], [address] Bedside Glucoseon 05-19-2025 FINGERSTICK GLU 197 mg/dL High 74-106 [facility] Comment on above: Result Comment: JEREMIAS GEMENT OF PATIENT CARE PER NURSING PROTOCOL Performed By: #### L 501.080 ####[facility] [address] [place], [address] FINGERSTICK GLU 237 mg/dL High 74-106 [facility] Comment on above: Result Comment: JEREMIAS GEMENT OF PATIENT CARE PER NURSING PROTOCOL Performed By: #### L 501.080 ####[facility] [address] [place], [address] FINGERSTICK GLU 111 mg/dL High 74-106 [facility] Comment on above: Result Comment: JEREMIAS GEMENT OF PATIENT CARE PER NURSING PROTOCOL Performed By: #### L 501.080 ####[facility] [address] [place], [address] FINGERSTICK GLU 82 mg/dL Normal 74-106 [facility] Comment on above: Result Comment: JEREMIAS GEMENT OF PATIENT CARE PER NURSING PROTOCOL Performed By: #### L 501.080 ####[facility] [address] [place], [address] Bilirubin, totalOrdered By: Michaela Joshua on 05-19-2025 Bilirubin [Mass/Vol] 0.25 mg/dL 0.00-1.30 [facility] CBC W/Diff, Automatedon Absolute Lymph 0.79 X10 3/uL Low 0.83-4.51 [facility] Comment on above: Performed By: #### L 501.2300, L100.0100, L501.5200, L500.4050 ####[facility] [address] [place], [address] Absolute Neut 4.2 X10 3/uL Normal 2.0-7.7 [facility] Comment on above: Performed By: #### L 501.2300, L100.0100, L501.5200, L500.4050 ####[facility] [address] [place], [address] Basophils/100 WBC (Bld) 0.5 % Normal 0-1 [facility] Comment on above: Performed By: #### L 501.2300, L100.0100, L501.5200, L500.4050 ####[facility] [address] [place], [address] Eosinophils/100 WBC (Bld) 1.6 % Normal 0-5 [facility] Comment on above: Performed By: #### L 501.2300, L100.0100, L501.5200, L500.4050 ####[facility] [address] [place], [address] Erythrocyte distribution width (RBC) [Ratio] 15.7 % High 11.6-14.6 [facility] Comment on above: Performed By: #### L 501.2300, L100.0100, L501.5200, L500.4050 ####[facility] [address] [place], [address] Hematocrit (Bld) [Volume fraction] 26.9 % Low 37-47 [facility] Comment on above: Performed By: #### L 501.2300, L100.0100, L501.5200, L500.4050 ####[facility] [address] [place], [address] Hemoglobin (Bld) [Mass/Vol] 8.7 g/dL Low 12.0-15.0 [facility] Comment on above: Performed By: #### L 501.2300, L100.0100, L501.5200, L500.4050 ####[facility] [address] [place], [address] IG% 0.500 Normal 0.0-0.9 [facility] Comment on above: Result Comment: IG% - Immature Granulocytes (promyelocytes, myelocytes andmetamyelocytes) > 1% indicates that a LEFT SHIFT is Present. Performed By: #### L 501.2300, L100.0100, L501.5200, L500.4050 ####[facility] [address] [place], [address] Lymphocytes/100 WBC (Bld) 13.7 % Low 19-41 [facility] Comment on above: Performed By: #### L 501.2300, L100.0100, L501.5200, L500.4050 ####[facility] [address] [place], [address] MCH (RBC) [Entitic mass] 29.2 pg Normal 27.0-32.0 [facility] Comment on above: Performed By: #### L 501.2300, L100.0100, L501.5200, L500.4050 ####[facility] [address] [place], [address] MCHC (RBC) [Mass/Vol] 32.3 g/dL Normal 32-36 [facility] Comment on above: Performed By: #### L 501.2300, L100.0100, L501.5200, L500.4050 ####[facility] [address] [place], [address] MCV (RBC) [Entitic vol] 90.3 fL Normal 81-99 [facility] Comment on above: Performed By: #### L 501.2300, L100.0100, L501.5200, L500.4050 ####[facility] [address] [place], [address] Monocytes/100 WBC (Bld) 10.4 % High 0-10 [facility] Comment on above: Performed By: #### L 501.2300, L100.0100, L501.5200, L500.4050 ####[facility] [address] [place], [address] Neutrophils/100 WBC (Bld) 73.3 % High 47-70 [facility] Comment on above: Performed By: #### L 501.2300, L100.0100, L501.5200, L500.4050 ####[facility] [address] [place], [address] Nucleated RBC (Bld) [#/Vol] 0 10*3/uL Normal 0-5 [facility] Comment on above: Performed By: #### L 501.2300, L100.0100, L501.5200, L500.4050 ####[facility] [address] [place], [address] Platelet mean volume (Bld) [Entitic vol] 11.2 fL Normal 6.2-12.0 [facility] Comment on above: Performed By: #### L 501.2300, L100.0100, L501.5200, L500.4050 ####[facility] [address] [place], [address] Platelets (Bld) [#/Vol] 148 10*3/uL Low 150-450 [facility] Comment on above: Performed By: #### L 501.2300, L100.0100, L501.5200, L500.4050 ####[facility] [address] [place], [address] RBC (Bld) [#/Vol] 2.98 10*6/uL Low 4.2-5.4 [facility] Comment on above: Performed By: #### L 501.2300, L100.0100, L501.5200, L500.4050 ####[facility] [address] [place], [address] RDW SD 52.0 fl High 35.1-43.9 [facility] Comment on above: Performed By: #### L 501.2300, L100.0100, L501.5200, L500.4050 ####[facility] [address] [place], [address] WBC (Bld) [#/Vol] 5.8 10*3/uL Normal 4.4-11.0 [facility] Comment on above: Performed By: #### L 501.2300, L100.0100, L501.5200, L500.4050 ####[facility] [address] [place], [address] Comprehensive Metabolic Prof [facility] 05-19-2025 Albumin [Mass/Vol] 2.5 g/dL Low 3.4-4.8 [facility] Comment on above: Performed By: #### L 501.2300, L100.0100, L501.5200, L500.4050 ####[facility] [address] [place], [address] Albumin/Globulin [Mass ratio] 0.9 {ratio} Normal 0.9-2.4 [facility] Comment on above: Performed By: #### L 501.2300, L100.0100, L501.5200, L500.4050 ####[facility] [address] [place], [address] ALK PHOS 45 U/L Normal 35-104 [facility] Comment on above: Performed By: #### L 501.2300, L100.0100, L501.5200, L500.4050 ####[facility] [address] [place], [address] ALT [Catalytic activity/Vol] 37 U/L High <=34 [facility] Comment on above: Performed By: #### L 501.2300, L100.0100, L501.5200, L500.4050 ####[facility] [address] [place], [address] AST [Catalytic activity/Vol] 68 U/L High <=31 [facility] Comment on above: Performed By: #### L 501.2300, L100.0100, L501.5200, L500.4050 ####[facility] [address] [place], [address] Bilirubin [Mass/Vol] 0.25 mg/dL Normal 0.00-1.30 [facility] Comment on above: Performed By: #### L 501.2300, L100.0100, L501.5200, L500.4050 ####[facility] [address] [place], [address] BUN/CRE 36.4 RATIO High 10-20 [facility] Comment on above: Performed By: #### L 501.2300, L100.0100, L501.5200, L500.4050 ####[facility] [address] [place], [address] Calcium [Mass/Vol] 8.8 mg/dL Normal 7.6-11.0 [facility] Comment on above: Performed By: #### L 501.2300, L100.0100, L501.5200, L500.4050 ####[facility] [address] [place], [address] Chloride [Moles/Vol] 109 mmol/L High 98-108 [facility] Comment on above: Performed By: #### L 501.2300, L100.0100, L501.5200, L500.4050 ####[facility] [address] [place], [address] CO2 [Moles/Vol] 19.4 mmol/L Low 21.0-32.0 [facility] Comment on above: Performed By: #### L 501.2300, L100.0100, L501.5200, L500.4050 ####[facility] [address] [place], [address] Creatinine [Mass/Vol] 1.46 mg/dL High 0.70-1.20 [facility] Comment on above: Performed By: #### L 501.2300, L100.0100, L501.5200, L500.4050 ####[facility] [address] [place], [address] ECRCL 35.14 ml/min Low 50-250 [facility] Comment on above: Performed By: #### L 501.2300, L100.0100, L501.5200, L500.4050 ####[facility] [address] [place], [address] GAP 11 Normal 5-15 [facility] Comment on above: Performed By: #### L 501.2300, L100.0100, L501.5200, L500.4050 ####[facility] [address] [place], [address] GFR/1.73 sq M.predicted among non-blacks MDRD (S/P/Bld) [Vol rate/Area] 38 mL/min/{1.73_m2} Low >60 [facility] Comment on above: Result Comment: mL/m in/1.73m2 CKD-EPI Creatinine Equation (2020) Performed By: #### L 501.2300, L100.0100, L501.5200, L500.4050 ####[facility] [address] [place], [address] Globulin (S) [Mass/Vol] 2.9 g/dL Normal 2.2-4.2 [facility] Comment on above: Performed By: #### L 501.2300, L100.0100, L501.5200, L500.4050 ####[facility] [address] [place], [address] Glucose [Mass/Vol] 89 mg/dL Normal 70-99 [facility] Comment on above: Performed By: #### L 501.2300, L100.0100, L501.5200, L500.4050 ####[facility] [address] [place], [address] Potassium [Moles/Vol] 4.2 mmol/L Normal 3.3-5.1 [facility] Comment on above: Performed By: #### L 501.2300, L100.0100, L501.5200, L500.4050 ####[facility] [address] [place], [address] Sodium [Moles/Vol] 140 mmol/L Normal 133-145 [facility] Comment on above: Performed By: #### L 501.2300, L100.0100, L501.5200, L500.4050 ####[facility] [address] [place], [address] T PROT 5.4 g/dL Low 5.9-8.4 [facility] Comment on above: Performed By: #### L 501.2300, L100.0100, L501.5200, L500.4050 ####[facility] [address] [place], [address] Urea nitrogen [Mass/Vol] 53 mg/dL High 4-19 [facility] Comment on above: Performed By: #### L 501.2300, L100.0100, L501.5200, L500.4050 ####[facility] [address] [place], [address] Electrocardiogram reportOrde red By: Michael Schultz on 05-19-2025 EKG study [facility] Other Phone: Magnesiumon 05-19-2025 Magnesium [Mass/Vol] 2.5 mg/dL High 1.5-2.2 [facility] Comment on above: Performed By: #### L 501.2300, L100.0100, L501.5200, L500.4050 ####[facility] [address] [place], [place], [address] Magnesium measurement (mass/ volume)Ordered By: Michaela Joshua on 05-19-2025 Magnesium (Unsp spec) [Mass/Vol] 2.5 mg/dL High 1.5-2.2 [facility] No Panel InformationOrdered By: Michaela Joshua on 05-19-2025 68 U/L High <32 [facility] Phosphoruson 05-19-2025 Phosphate [Mass/Vol] 3.7 mg/dL Normal 2.7-4.5 [facility] Comment on above: Performed By: #### L 501.2300, L100.0100, L501.5200, L500.4050 ####[facility] [address] [place], [address] Serum globulin measurementOr dered By: Michaela Joshua on 05-19-2025 Globulin (S) [Mass/Vol] 2.9 g/dL 2.2-4.2 [facility] Serum or plasma alanine anaya otransferase (ALT) measurementOrdered By: Michaela Joshua on 05-19-2025 ALT [Catalytic activity/Vol] 37 U/L High <35 [facility] Serum or plasma albumin natalia urement (mass/volume)Ordered By: Michaela Joshua on 05-19-2025 Albumin [Mass/Vol] 2.5 g/dL Low 3.4-4.8 [facility] Serum or plasma albumin/glob ulin mass ratioOrdered By: Michaela Joshua on 05-19-2025 Albumin/Globulin [Mass ratio] 0.9 {ratio} 0.9-2.4 [facility] Serum or plasma alkaline chelsie sphatase measurementOrdered By: Michaela Joshua on 05-19-2025 ALP [Catalytic activity/Vol] 45 U/L 35-104 [facility] Total proteinOrdered By: Rosalia Joshua on 05-19-2025 Protein [Mass/Vol] 5.4 g/dL Low 5.9-8.4 [facility] 12 Lead EKGon 05-18-2025 12 Lead EKG Normal [facility] Abdomen/Pelvis without Conto n 05-18-2025 Abdomen/Pelvis without Cont Normal [facility] Absolute lymphocyte countOrd ered By: Maddie Merchant on 05-18-2025 Lymphocytes Auto (Unsp spec) [#/Vol] 0.51 10*3/uL Low 0.83-4.51 [facility] Activated partial thrombopla stin time (aPTT) in platelet poor plasma by coagulation aOrdered By: Maddie Merchant on 05-18-2025 aPTT Coag (PPP) [Time] 46.3 s High 24.1-36.2 [facility] Anion gap in Serum or Plasma Ordered By: Maddie Merchant on 05-18-2025 Anion gap [Moles/Vol] 13 mmol/L 5-15 [facility] Ankle min 3 Viewson 05-18-20 25 Ankle min 3 Views Normal [facility] Automated lymphocyte count a s percentage of total leukocytesOrdered By: Maddie Merchant on 05-18-2025 Lymphocytes/100 WBC Auto (Unsp spec) 8.1 % Low 19-41 [facility] BUN/creatinine ratioOrdered By: Maddie Merchant on 05-18-2025 Urea nitrogen/Creatinine [Mass ratio] 39.9 mg/mg High 10-20 [facility] Basophil percentageOrdered B y: Maddie Merchant on 05-18-2025 Basophils/100 WBC (Bld) 0.3 % 0-1 [facility] Bedside Glucoseon 05-18-2025 FINGERSTICK GLU 195 mg/dL High 74-106 [facility] Comment on above: Result Comment: JEREMIAS GEMENT OF PATIENT CARE PER NURSING PROTOCOL Performed By: #### L 501.080 ####[facility] [address] [facility] [address] FINGERSTICK GLU 191 mg/dL High 74-106 [facility] Comment on above: Result Comment: JEREMIAS GEMENT OF PATIENT CARE PER NURSING PROTOCOL Performed By: #### L 501.080 ####[facility] [address] [facility] [address] FINGERSTICK GLU 93 mg/dL Normal 74-106 [facility] Comment on above: Result Comment: JEREMIAS GEMENT OF PATIENT CARE PER NURSING PROTOCOL Performed By: #### L 501.080 ####[facility] [address] [facility] [address] FINGERSTICK GLU 132 mg/dL High 74-106 [facility] Comment on above: Result Comment: JEREMIAS GEMENT OF PATIENT CARE PER NURSING PROTOCOL Performed By: #### L 501.080 ####[facility] [address] [facility] [address] Bilirubin Test strip Ql (U)O rdered By: Jerri Castillo on 05-18-2025 Bilirubin Ql (U) Negative Negative [facility] Bilirubin, totalOrdered By: Maddie Merchant on 05-18-2025 Bilirubin [Mass/Vol] 0.29 mg/dL 0.00-1.30 [facility] CBC W/Diff, Automatedon 04-21 Absolute Lymph 0.51 X10 3/uL Low 0.83-4.51 [facility] Comment on above: Performed By: #### L 100.0100, L501.9985, L500.4050, L501.3620 ####[facility] [address] [place], [address] Absolute Neut 4.8 X10 3/uL Normal 2.0-7.7 [facility] Comment on above: Performed By: #### L 100.0100, L501.9985, L500.4050, L501.3620 ####[facility] [address] [place], [address] Basophils/100 WBC (Bld) 0.3 % Normal 0-1 [facility] Comment on above: Performed By: #### L 100.0100, L501.9985, L500.4050, L501.3620 ####[facility] [address] [place], [address] Eosinophils/100 WBC (Bld) 0.3 % Normal 0-5 [facility] Comment on above: Performed By: #### L 100.0100, L501.9985, L500.4050, L501.3620 ####[facility] [address] [place], [address] Erythrocyte distribution width (RBC) [Ratio] 15.2 % High 11.6-14.6 [facility] Comment on above: Performed By: #### L 100.0100, L501.9985, L500.4050, L501.3620 ####[facility] [address] [place], [address] Hematocrit (Bld) [Volume fraction] 26.2 % Low 37-47 [facility] Comment on above: Performed By: #### L 100.0100, L501.9985, L500.4050, L501.3620 ####[facility] [address] [place], [address] Hemoglobin (Bld) [Mass/Vol] 8.5 g/dL Low 12.0-15.0 [facility] Comment on above: Performed By: #### L 100.0100, L501.9985, L500.4050, L501.3620 ####[facility] [address] [place], [address] IG% 0.500 Normal 0.0-0.9 [facility] Comment on above: Result Comment: IG% - Immature Granulocytes (promyelocytes, myelocytes andmetamyelocytes) > 1% indicates that a LEFT SHIFT is Present. Performed By: #### L 100.0100, L501.9985, L500.4050, L501.3620 ####[facility] [address] [place], [address] Lymphocytes/100 WBC (Bld) 8.1 % Low 19-41 [facility] Comment on above: Performed By: #### L 100.0100, L501.9985, L500.4050, L501.3620 ####[facility] [address] [place], [address] MCH (RBC) [Entitic mass] 29.0 pg Normal 27.0-32.0 [facility] Comment on above: Performed By: #### L 100.0100, L501.9985, L500.4050, L501.3620 ####[facility] [address] [place], [address] MCHC (RBC) [Mass/Vol] 32.4 g/dL Normal 32-36 [facility] Comment on above: Performed By: #### L 100.0100, L501.9985, L500.4050, L501.3620 ####[facility] [address] [place], [address] MCV (RBC) [Entitic vol] 89.4 fL Normal 81-99 [facility] Comment on above: Performed By: #### L 100.0100, L501.9985, L500.4050, L501.3620 ####[facility] [address] [place], [address] Monocytes/100 WBC (Bld) 14.6 % High 0-10 [facility] Comment on above: Performed By: #### L 100.0100, L501.9985, L500.4050, L501.3620 ####[facility] [address] [place], [address] Neutrophils/100 WBC (Bld) 76.2 % High 47-70 [facility] Comment on above: Performed By: #### L 100.0100, L501.9985, L500.4050, L501.3620 ####[facility] [address] [place], [address] Nucleated RBC (Bld) [#/Vol] 0 10*3/uL Normal 0-5 [facility] Comment on above: Performed By: #### L 100.0100, L501.9985, L500.4050, L501.3620 ####[facility] [address] [place], [address] Platelet mean volume (Bld) [Entitic vol] 11.4 fL Normal 6.2-12.0 [facility] Comment on above: Performed By: #### L 100.0100, L501.9985, L500.4050, L501.3620 ####[facility] [address] [place], [address] Platelets (Bld) [#/Vol] 158 10*3/uL Normal 150-450 [facility] Comment on above: Performed By: #### L 100.0100, L501.9985, L500.4050, L501.3620 ####[facility] [address] [place], [address] RBC (Bld) [#/Vol] 2.93 10*6/uL Low 4.2-5.4 [facility] Comment on above: Performed By: #### L 100.0100, L501.9985, L500.4050, L501.3620 ####[facility] [address] [place], [address] RDW SD 50.2 fl High 35.1-43.9 [facility] Comment on above: Performed By: #### L 100.0100, L501.9985, L500.4050, L501.3620 ####[facility] [address] [place], [address] WBC (Bld) [#/Vol] 6.3 10*3/uL Normal 4.4-11.0 [facility] Comment on above: Performed By: #### L 100.0100, L501.9985, L500.4050, L501.3620 ####[facility] [address] [place], [address] CPK Total, Creatine Kinaseon 05-18-2025 CPK TOTAL 1008 U/L High 24-195 [facility] Comment on above: Performed By: #### L 100.0100, L501.9985, L500.4050, L501.3620 ####[facility] [address] [place], [address] CTA Chest W/WO Contraston CTA Chest W/WO Contrast Normal [facility] Carbon dioxide, total [Moles /volume] in Central venous bloodOrdered By: Maddie Merchant on 05-18-2025 CO2 [Moles/Vol] 18.8 mmol/L Low 21.0-32.0 [facility] Chloride assayOrdered By: Amira Merchant on 05-18-2025 Chloride [Moles/Vol] 104 mmol/L 98-108 [facility] Comprehensive Metabolic Prof ilon 05-18-2025 Albumin [Mass/Vol] 2.7 g/dL Low 3.4-4.8 [facility] Comment on above: Performed By: #### L 100.0100, L501.9985, L500.4050, L501.3620 ####[facility] [address] [place], [address] Albumin/Globulin [Mass ratio] 1.0 {ratio} Normal 0.9-2.4 [facility] Comment on above: Performed By: #### L 100.0100, L501.9985, L500.4050, L501.3620 ####[facility] [address] [place], [address] ALK PHOS 47 U/L Normal 35-104 [facility] Comment on above: Performed By: #### L 100.0100, L501.9985, L500.4050, L501.3620 ####[facility] [address] [place], [address] ALT [Catalytic activity/Vol] 33 U/L Normal <=34 [facility] Comment on above: Performed By: #### L 100.0100, L501.9985, L500.4050, L501.3620 ####[facility] [address] [place], [address] AST [Catalytic activity/Vol] 70 U/L High <=31 [facility] Comment on above: Performed By: #### L 100.0100, L501.9985, L500.4050, L501.3620 ####[facility] [address] [place], [address] Bilirubin [Mass/Vol] 0.29 mg/dL Normal 0.00-1.30 [facility] Comment on above: Performed By: #### L 100.0100, L501.9985, L500.4050, L501.3620 ####[facility] [address] [place], [address] BUN/CRE 39.9 RATIO High 10-20 [facility] Comment on above: Performed By: #### L 100.0100, L501.9985, L500.4050, L501.3620 ####[facility] [address] [place], [address] Calcium [Mass/Vol] 9.1 mg/dL Normal 7.6-11.0 [facility] Comment on above: Performed By: #### L 100.0100, L501.9985, L500.4050, L501.3620 ####[facility] [address] [place], [address] Chloride [Moles/Vol] 104 mmol/L Normal 98-108 [facility] Comment on above: Performed By: #### L 100.0100, L501.9985, L500.4050, L501.3620 ####[facility] [address] [place], [address] CO2 [Moles/Vol] 18.8 mmol/L Low 21.0-32.0 [facility] Comment on above: Performed By: #### L 100.0100, L501.9985, L500.4050, L501.3620 ####[facility] [address] [place], [address] Creatinine [Mass/Vol] 1.74 mg/dL High 0.70-1.20 [facility] Comment on above: Performed By: #### L 100.0100, L501.9985, L500.4050, L501.3620 ####[facility] [address] [place], [address] ECRCL 26.96 ml/min Low 50-250 [facility] Comment on above: Performed By: #### L 100.0100, L501.9985, L500.4050, L501.3620 ####[facility] [address] [place], [address] GAP 13 Normal 5-15 [facility] Comment on above: Performed By: #### L 100.0100, L501.9985, L500.4050, L501.3620 ####[facility] [address] [place], [address] GFR/1.73 sq M.predicted among non-blacks MDRD (S/P/Bld) [Vol rate/Area] 31 mL/min/{1.73_m2} Low >60 [facility] Comment on above: Result Comment: mL/m in/1.73m2 CKD-EPI Creatinine Equation (2020) Performed By: #### L 100.0100, L501.9985, L500.4050, L501.3620 ####[facility] [address] [place], [address] Globulin (S) [Mass/Vol] 2.8 g/dL Normal 2.2-4.2 [facility] Comment on above: Performed By: #### L 100.0100, L501.9985, L500.4050, L501.3620 ####[facility] [address] [place], [address] Glucose [Mass/Vol] 161 mg/dL High 70-99 [facility] Comment on above: Performed By: #### L 100.0100, L501.9985, L500.4050, L501.3620 ####[facility] [address] [place], [address] Potassium [Moles/Vol] 3.7 mmol/L Normal 3.3-5.1 [facility] Comment on above: Performed By: #### L 100.0100, L501.9985, L500.4050, L501.3620 ####[facility] [address] [place], [address] Sodium [Moles/Vol] 136 mmol/L Normal 133-145 [facility] Comment on above: Performed By: #### L 100.0100, L501.9985, L500.4050, L501.3620 ####[facility] [address] [place], [address] T PROT 5.5 g/dL Low 5.9-8.4 [facility] Comment on above: Performed By: #### L 100.0100, L501.9985, L500.4050, L501.3620 ####[facility] [address] [place], [address] Urea nitrogen [Mass/Vol] 69 mg/dL High 4-19 [facility] Comment on above: Performed By: #### L 100.0100, L501.9985, L500.4050, L501.3620 ####[facility] [address] [place], [address] Consultation - Infectious Dx on 05-18-2025 Consultation - Infectious Dx Normal [facility] Consultation - Intensiviston 05-18-2025 Consultation - Community Arts Worker Normal [facility] Consultation - Surgicalon Consultation - Surgical Normal [facility] Eosinophil percentageOrdered By: White on 05-18-2025 Eosinophils/100 WBC (Bld) 0.3 % 0-5 [facility] Erythrocyte Sed Rateon 05-18 SED RATE 54 mm/hr High 0-30 [facility] Comment on above: Performed By: #### L 101.9900 ####[facility] [address] [place], [address] Erythrocyte distribution wid th ratioOrdered By: White on 05-18-2025 Erythrocyte distribution width (RBC) [Ratio] 15.2 % High 11.6-14.6 [facility] Erythrocyte distribution wid th standard deviationOrdered By: White on 05-18-2025 Erythrocyte distribution width (RBC) [Ratio] 50.2 fl High 35.1-43.9 [facility] Erythrocyte sedimentation ra teOrdered By: Patel Irene on 05-18-2025 ESR (Bld) [Velocity] 54 mm/h High 0-30 [facility] Glomerular filtration rate ( GFR) estimation/1.73 sq m using serum, plasma, or whole bOrdered By: Maddie Merchant on 05-18-2025 GFR/1.73 sq M.predicted among non-blacks MDRD (S/P/Bld) [Vol rate/Area] 31 mL/min/{1.73_m2} Low >60 [facility] Gl[facility] at [facility] deOrdered By: Michaela Joshua on 05-18-2025 Glucose [Mass/Vol] 195 mg/dL High 74-106 [facility] Gram Stainon 05-18-2025 GS List Antibiotics [place] 48 Hours? rocephin and vancomycin List Antibiotics to be Started? zosyn Gram Stain 1+ Gram positive cocci Normal [facility] Comment on above: Performed By: #### M 100.3000, M100.2000, M8200.1075 ####[facility] [address] [place], [place], [id number] Gram stainOrdered By: Maddie Merchant on 05-18-2025 Microscopic observation Gram stain Nom (Unsp spec) [facility] H AND P Exam - Hospitaliston 05-18-2025 H&P Exam - Hospitalist Normal [facility] Hematocrit Auto (Bld) [Volum e fraction]Ordered By: Maddie Merchant on 05-18-2025 Hematocrit (Bld) [Volume fraction] 26.2 % Low 37-47 [facility] Hemoglobin A1c percentageOrd ered By: Maddie Merchant on 05-18-2025 HbA1c (Bld) [Mass fraction] 7.6 % High <=5.6 [facility] Comment on above: Result Comment: Norm al < 5.7 % Prediabetic 5.7 - 6.4 % Diabetic >or= 6.5 % Please note range changes. Performed By: #### L 100.0100, L501.9985, L500.4050, L501.3620 ####[facility] [address] [place], [place], [id number] Hemoglobin measurementOrdere d By: Maddie Merchant on 05-18-2025 Hemoglobin (Bld) [Mass/Vol] 8.5 g/dL Low 12.0-15.0 [facility] Immature granulocytes/100 WB C Auto (Bld)Ordered By: Maddie Merchant on 05-18-2025 Immature granulocytes/100 WBC (Bld) 0.500 % 0.0-0.9 [facility] Ketones Test strip Ql (U)Ord ered By: Jerri Ungpraveen on 05-18-2025 Ketones Ql (U) 5 mg/dl High Negative [facility] Lactic Acidon 05-18-2025 Lactate [Moles/Vol] mmol/L Normal 0.0-2.0 [facility] Comment on above: Order Comment: Comme nts: if result >2, system reflex orders 2nd test @ 4hrsY Performed By: #### L 503.6005 ####[facility] [address] [place], [address] M8200.1075on 05-18-2025 M8200.1075 Normal [facility] Comment on above: Performed By: #### M 100.3000, M100.2000, M8200.1075 ####[facility] [address] [place], [address] MCV (mean corpuscular volume ) determinationOrdered By: Maddie Shonda on 05-18-2025 MCV (RBC) [Entitic vol] 89.4 fL 81-99 [facility] Magnesiumon 05-18-2025 Magnesium [Mass/Vol] 2.6 mg/dL High 1.5-2.2 [facility] Comment on above: Order Comment: Comme nts: May add to ED labsComments: may add to ED labs Performed By: #### L 501.5200, L501.2300 ####[facility] [address] [place], [address] Mean corpuscular hemoglobin (MCH) determinationOrdered By: Maddie Shonda on 05-18-2025 MCH (RBC) [Entitic mass] 29.0 pg 27.0-32.0 [facility] Methicillin resistant Staphy lococcus aureus detection by polymerase chain reactionOrdered By: Maddie Shonda on 05-18-2025 Bacterial nucleic acid assay Meth. resistant Staph. aureus Abnormal [facility] Monocyte percentageOrdered B y: Shonda on 05-18-2025 Monocytes/100 WBC (Bld) 14.6 % High 0-10 [facility] Mucus LM Ql (Urine sed)Order ed By: Jerri Castillo on 05-18-2025 Mucus Ql (Urine sed) 0 SEEN /hpf [facility] Neutrophil percentageOrdered By: Maddie Shonda on 05-18-2025 Neutrophils/100 WBC (Bld) 76.2 % High 47-70 [facility] Nitrite Test strip Ql (U)Ord ered By: Jerri Castillo on 05-18-2025 Nitrite Ql (U) Negative Negative [facility] No Panel InformationOrdered By: Maddie Shonda on 05-18-2025 70 U/L High <32 [facility] Partial Thromboplast Timeon 05-18-2025 aPTT Coag (Bld) [Time] 46.3 s High 24.1-36.2 [facility] Comment on above: Performed By: #### L 300.4310, L300.3900 ####[facility] [address] [place], [place], [id number] Phosphoruson 05-18-2025 Phosphate [Mass/Vol] 3.8 mg/dL Normal 2.7-4.5 [facility] Comment on above: Order Comment: Comme nts: May add to ED labsComments: may add to ED labs Performed By: #### L 501.5200, L501.2300 ####[facility] [address] [place], [place], [id number] Platelet countOrdered By: Amira barney Shonda on 05-18-2025 Platelets (Bld) [#/Vol] 158 10*3/uL 150-450 [facility] Potassium measurement (mass/ volume)Ordered By: Maddie Merchant on 05-18-2025 Potassium (Unsp spec) [Mass/Vol] 3.7 mmol/L 3.3-5.1 [facility] Protein Test strip Ql (U)Ord ered By: Jerri Castillo on 05-18-2025 Protein Ql (U) 100 mg/dl High Negative [facility] Prothrombin Time w/INRon INR Coag (PPP) [Relative time] 2.2 {INR} Normal [facility] Comment on above: Performed By: #### L 300.4310, L300.3900 ####[facility] [address] [place], [address] PT Coag (PPP) [Time] 15.5 s High 11.7-14.9 [facility] Comment on above: Performed By: #### L 300.4310, L300.3900 ####[facility] [address] [place], [address] Prothrombin timeOrdered By: Maddie Merchant on 05-18-2025 PT Coag (PPP) [Time] 15.5 s High 11.7-14.9 [facility] RBC Auto (Bld) [#/Vol]Ordere d By: Maddie Merchant on 05-18-2025 RBC (Bld) [#/Vol] 2.93 10*6/uL Low 4.2-5.4 [facility] Routine wound cultureOrdered By: Maddie Merchant on 05-18-2025 Microbial culture, routine Meth. resistant Staph. aureus Abnormal [facility] Serum creatinine measurement (mass/volume)Ordered By: Maddie Merchant on 05-18-2025 Creatinine [Mass/Vol] 1.74 mg/dL High 0.70-1.20 [facility] Serum globulin measurementOr dered By: Maddie Merchant on 05-18-2025 Globulin (S) [Mass/Vol] 2.8 g/dL 2.2-4.2 [facility] Serum glucose measurement (m ass/volume)Ordered By: Maddie Merchant on 05-18-2025 Glucose [Mass/Vol] 161 mg/dL High 70-99 [facility] Serum or plasma alanine anaya otransferase (ALT) measurementOrdered By: Maddie Merchant on 05-18-2025 ALT [Catalytic activity/Vol] 33 U/L <35 [facility] Serum or plasma albumin natalia urement (mass/volume)Ordered By: Maddie Merchant on 05-18-2025 Albumin [Mass/Vol] 2.7 g/dL Low 3.4-4.8 [facility] Serum or plasma albumin/glob ulin mass ratioOrdered By: Maddie Shonda on 05-18-2025 Albumin/Globulin [Mass ratio] 1.0 {ratio} 0.9-2.4 [facility] Serum or plasma alkaline chelsie sphatase measurementOrdered By: Maddie Merchant on 05-18-2025 ALP [Catalytic activity/Vol] 47 U/L 35-104 [facility] Serum or plasma calcium natalia urement (mass/volume)Ordered By: Maddie Merchant on 05-18-2025 Calcium [Mass/Vol] 9.1 mg/dL 7.6-11.0 [facility] Serum or plasma creatine kin ase activityOrdered By: Maddie Shonda on 05-18-2025 CK [Catalytic activity/Vol] 1008 U/L High 24-195 [facility] Serum or plasma urea nitroge n measurement (mass/volume)Ordered By: Maddie Merchant on 05-18-2025 Urea nitrogen [Mass/Vol] 69 mg/dL High 4-19 [facility] Sodium levelOrdered By: Renea mn Shonda on 05-18-2025 Sodium [Moles/Vol] 136 mmol/L 133-145 [facility] Squamous epithelial cells de tection in urine sediment by light microscopyOrdered By: Jerri Castillo on 05-18-2025 Epithelial cells.squamous LM Ql (Urine sed) 0-5 SEEN /hpf 5-10 [facility] Total proteinOrdered By: Stacia umn Shonda on 05-18-2025 Protein [Mass/Vol] 5.5 g/dL Low 5.9-8.4 [facility] Urinalysis, Completeon 05-18 BACTERIA 3+ /hpf Normal None Seen [facility] Comment on above: Order Comment: COLLE CTOR TO SPECIFY Performed By: #### L 400.0001, M100.2200 ####[facility] [address] [place], [place], [id number] EPI,SQUAMOUS 0-5 SEEN Normal 5-10 [facility] Comment on above: Order Comment: CORRIE CTOR TO SPECIFY Performed By: #### L 400.0001, ####[facility] [address] [place], [address] WBC >100 SEEN Normal 0-5 [facility] Comment on above: Order Comment: CORRIE CTOR TO SPECIFY Performed By: #### L 400.0001, ####[facility] [address] [place], [address] BILIRUBIN URINE Negative Normal Negative [facility] Comment on above: Order Comment: CORRIE CTOR TO SPECIFY Performed By: #### L 400.0001, ####[facility] [address] [place], [address] Clarity (U) Cloudy Normal Clear [facility] Comment on above: Order Comment: CORRIE CTOR TO SPECIFY Performed By: #### L 400.0001, ####[facility] [address] [place], [address] Color (U) Yellow Normal Yellow [facility] Comment on above: Order Comment: CORRIE CTOR TO SPECIFY Performed By: #### L 400.0001, ####[facility] [address] [place], [address] GLUCOSE, UR Normal Normal Normal [facility] Comment on above: Order Comment: CORRIE CTOR TO SPECIFY Performed By: #### L 400.0001, ####[facility] [address] [place], [address] KETONE UR 5 mg/dl Abnormal Negative [facility] Comment on above: Order Comment: CORRIE CTOR TO SPECIFY Performed By: #### L 400.0001, ####[facility] [address] [place], [address] LEUK ESTERASE 500 /ul Abnormal Negative [facility] Comment on above: Order Comment: CORRIE CTOR TO SPECIFY Performed By: #### L 400.0001, .2199 ####[facility] [address] [place], [address] Nitrite Ql (U) Negative Normal Negative [facility] Comment on above: Order Comment: CORRIE CTOR TO SPECIFY Performed By: #### L 400.0001, ####[facility] [address] [place], [address] OCCULT BLOOD-UR 250 /ul Abnormal Negative [facility] Comment on above: Order Comment: CORRIE CTOR TO SPECIFY Performed By: #### L 400.0001, ####[facility] [address] [place], [address] pH UR 5.0 Normal 5.0 - 8.0 [facility] Comment on above: Order Comment: CORRIE CTOR TO SPECIFY Performed By: #### L 400.0001, ####[facility] [address] [place], [address] PROT DIPSTX 100 mg/dl Abnormal Negative [facility] Comment on above: Order Comment: CORRIE CTOR TO SPECIFY Performed By: #### L 400.0001, ####[facility] [address] [place], [address] SP.GR. DIPSTX 1.020 Normal 1.002-1.030 [facility] Comment on above: Order Comment: CORRIE CTOR TO SPECIFY Performed By: #### L 400.0001, ####[facility] [address] [place], [address] UROBILI Normal Normal Normal [facility] Comment on above: Order Comment: CORRIE CTOR TO SPECIFY Performed By: #### L 400.0001, ####[facility] [address] [place], [address] Mucus Ql (Urine sed) 0 SEEN Normal [facility] Comment on above: Order Comment: CORRIE CTOR TO SPECIFY Performed By: #### L 400.0001, M100.2200 ####[facility] [address] [place], [address] RBC 0 SEEN Normal 0-5 [facility] Comment on above: Order Comment: CORRIE CTOR TO SPECIFY Performed By: #### L 400.0001, M100.2200 ####[facility] [address] [place], [address] Urine clarityOrdered By: Tessa Castillo on 05-18-2025 Clarity (U) Cloudy Clear [facility] Urine color determinationOrd ered By: Jerri Castillo on 05-18-2025 Color (U) Yellow Yellow [facility] Urine cultureOrdered By: Tessa Castillo on 05-18-2025 Bacteria identified Cx Nom (U) Escherichia coli Abnormal [facility] Bacteria identified Cx Nom (U) Presumptive Lactobacillus sp. Abnormal [facility] Bacteria identified Cx Nom (U) Vanna albicans Abnormal [facility] Urine glucose detectionOrder ed By: Jerri Castillo on 05-18-2025 Glucose Ql (U) Normal mg/dl Normal [facility] Urine leukocyte esterase det ection by dipstickOrdered By: Jerri Castillo on 05-18-2025 Leukocyte esterase Test strip Ql (U) 500 /ul High Negative [facility] Urine pHOrdered By: Jerri Kendall gur on 05-18-2025 pH (U) 5.0 [pH] 5.0 - 8.0 [facility] Urine sediment bacteria coun t by microscopy (number/high power field)Ordered By: Jerri Castillo on 05-18-2025 Bacteria LM.HPF (Urine sed) [#/Area] 3 /[HPF] None Seen [facility] Urine specific gravity measu rementOrdered By: Jerri Castillo on 05-18-2025 Specific gravity (U) [Rel density] 1.020 1.002-1.030 [facility] Urine urobilinogen measureme ntOrdered By: Jerri Castillo on 05-18-2025 Urobilinogen Ql (U) Normal mg/dl Normal [facility] White blood cell (WBC) count Ordered By: Maddie Merchant on 05-18-2025 WBC (Bld) [#/Vol] 6.3 10*3/uL 4.4-11.0 [facility] White blood cell countOrdere d By: Rem Ungpraveen on 05-18-2025 White blood cell count >100 SEEN /hpf 0-5 [facility] Absolute lymphocyte countOrd ered By: Remus Sandypraveen on 05-17-2025 Lymphocytes Auto (Unsp spec) [#/Vol] 0.52 10*3/uL Low 0.83-4.51 [facility] Anion gap in Serum or Plasma Ordered By: Remus Sandypraveen on 05-17-2025 Anion gap [Moles/Vol] 16 mmol/L High 5-15 [facility] Automated lymphocyte count a s percentage of total leukocytesOrdered By: Jerri Sandypraveen on 05-17-2025 Lymphocytes/100 WBC Auto (Unsp spec) 7.4 % Low 19-41 [facility] BUN/creatinine ratioOrdered By: Jerri Sandypraveen on 05-17-2025 Urea nitrogen/Creatinine [Mass ratio] 39.9 mg/mg High 10-20 [facility] Basophil percentageOrdered B y: Jerri Castillo on 05-17-2025 Basophils/100 WBC (Bld) 0.6 % 0-1 [facility] Bilirubin, totalOrdered By: Jerri Sandypraveen on 05-17-2025 Bilirubin [Mass/Vol] 0.45 mg/dL 0.00-1.30 [facility] Blood cultureOrdered By: Tessa us Vikapraveen on 05-17-2025 Bacteria identified Cx Nom (Bld) No growth in 5 days. [facility] Bacteria identified Cx Nom (Bld) Meth. resistant Staph. aureus Abnormal [facility] CBC W/Diff, Automatedon 04-20 Absolute Lymph 0.52 X10 3/uL Low 0.83-4.51 [facility] Comment on above: Performed By: #### L 503.6005, L100.0100, L500.4050 ####[facility] [address] [place], [address] Absolute Neut 5.7 X10 3/uL Normal 2.0-7.7 [facility] Comment on above: Performed By: #### L 503.6005, L100.0100, L500.4050 ####[facility] [address] [place], [address] Basophils/100 WBC (Bld) 0.6 % Normal 0-1 [facility] Comment on above: Performed By: #### L 503.6005, L100.0100, L500.4050 ####[facility] [address] [place], [address] Eosinophils/100 WBC (Bld) 0.0 % Normal 0-5 [facility] Comment on above: Performed By: #### L 503.6005, L100.0100, L500.4050 ####[facility] [address] [place], [address] Erythrocyte distribution width (RBC) [Ratio] 15.3 % High 11.6-14.6 [facility] Comment on above: Performed By: #### L 503.6005, L100.0100, L500.4050 ####[facility] [address] [place], [address] Hematocrit (Bld) [Volume fraction] 27.7 % Low 37-47 [facility] Comment on above: Performed By: #### L 503.6005, L100.0100, L500.4050 ####[facility] [address] [place], [address] Hemoglobin (Bld) [Mass/Vol] 8.9 g/dL Low 12.0-15.0 [facility] Comment on above: Performed By: #### L 503.6005, L100.0100, L500.4050 ####[facility] [address] [place], [address] IG% 0.600 Normal 0.0-0.9 [facility] Comment on above: Result Comment: IG% - Immature Granulocytes (promyelocytes, myelocytes andmetamyelocytes) > 1% indicates that a LEFT SHIFT is Present. Performed By: #### L 503.6005, L100.0100, L500.4050 ####[facility] [address] [place], [address] Lymphocytes/100 WBC (Bld) 7.4 % Low 19-41 [facility] Comment on above: Performed By: #### L 503.6005, L100.0100, L500.4050 ####[facility] [address] [place], [address] MCH (RBC) [Entitic mass] 29.0 pg Normal 27.0-32.0 [facility] Comment on above: Performed By: #### L 503.6005, L100.0100, L500.4050 ####[facility] [address] [place], [address] MCHC (RBC) [Mass/Vol] 32.1 g/dL Normal 32-36 [facility] Comment on above: Performed By: #### L 503.6005, L100.0100, L500.4050 ####[facility] [address] [place], [address] MCV (RBC) [Entitic vol] 90.2 fL Normal 81-99 [facility] Comment on above: Performed By: #### L 503.6005, L100.0100, L500.4050 ####[facility] [address] [place], [address] Monocytes/100 WBC (Bld) 10.6 % High 0-10 [facility] Comment on above: Performed By: #### L 503.6005, L100.0100, L500.4050 ####[facility] [address] [place], [address] Neutrophils/100 WBC (Bld) 80.8 % High 47-70 [facility] Comment on above: Performed By: #### L 503.6005, L100.0100, L500.4050 ####[facility] [address] [place], [address] Nucleated RBC (Bld) [#/Vol] 0 10*3/uL Normal 0-5 [facility] Comment on above: Performed By: #### L 503.6005, L100.0100, L500.4050 ####[facility] [address] [place], [address] Platelet mean volume (Bld) [Entitic vol] 11.3 fL Normal 6.2-12.0 [facility] Comment on above: Performed By: #### L 503.6005, L100.0100, L500.4050 ####[facility] [address] [place], [address] Platelets (Bld) [#/Vol] 162 10*3/uL Normal 150-450 [facility] Comment on above: Performed By: #### L 503.6005, L100.0100, L500.4050 ####[facility] [address] [place], [address] RBC (Bld) [#/Vol] 3.07 10*6/uL Low 4.2-5.4 [facility] Comment on above: Performed By: #### L 503.6005, L100.0100, L500.4050 ####[facility] [address] [place], [address] RDW SD 50.8 fl High 35.1-43.9 [facility] Comment on above: Performed By: #### L 503.6005, L100.0100, L500.4050 ####[facility] [address] [place], [address] WBC (Bld) [#/Vol] 7.1 10*3/uL Normal 4.4-11.0 [facility] Comment on above: Performed By: #### L 503.6005, L100.0100, L500.4050 ####[facility] [address] [place], [address] CPK Total, Creatine Kinaseon 05-17-2025 CPK TOTAL 1177 U/L High 24-195 [facility] Comment on above: Performed By: #### L 501.3620 ####[facility] [address] [place], [address] Carbon dioxide, total [Moles /volume] in Central venous bloodOrdered By: Jerri Castillo on 05-17-2025 CO2 [Moles/Vol] 17.5 mmol/L Low 21.0-32.0 [facility] Chest 1 View (Portable)on Chest 1 View (Portable) Normal [facility] Chloride assayOrdered By: Stephanie Castillo on 05-17-2025 Chloride [Moles/Vol] 97 mmol/L Low 98-108 [facility] Comprehensive Metabolic Prof ilon 05-17-2025 Albumin [Mass/Vol] 2.9 g/dL Low 3.4-4.8 [facility] Comment on above: Performed By: #### L 503.6005, L100.0100, L500.4050 ####[facility] [address] [place], [address] Albumin/Globulin [Mass ratio] 0.8 {ratio} Low 0.9-2.4 [facility] Comment on above: Performed By: #### L 503.6005, L100.0100, L500.4050 ####[facility] [address] [place], [address] ALK PHOS 54 U/L Normal 35-104 [facility] Comment on above: Performed By: #### L 503.6005, L100.0100, L500.4050 ####[facility] [address] [place], [address] ALT [Catalytic activity/Vol] 36 U/L High <=34 [facility] Comment on above: Performed By: #### L 503.6005, L100.0100, L500.4050 ####[facility] [address] [place], [address] AST [Catalytic activity/Vol] 83 U/L High <=31 [facility] Comment on above: Result Comment: Hemo lysis present, Results??could be affected.?? Performed By: #### L 503.6005, L100.0100, L500.4050 ####[facility] [address] [place], [address] Bilirubin [Mass/Vol] 0.45 mg/dL Normal 0.00-1.30 [facility] Comment on above: Performed By: #### L 503.6005, L100.0100, L500.4050 ####[facility] [address] [place], [address] BUN/CRE 39.9 RATIO High 10-20 [facility] Comment on above: Performed By: #### L 503.6005, L100.0100, L500.4050 ####[facility] [address] [place], [address] Calcium [Mass/Vol] 9.2 mg/dL Normal 7.6-11.0 [facility] Comment on above: Performed By: #### L 503.6005, L100.0100, L500.4050 ####[facility] [address] [place], [address] Chloride [Moles/Vol] 97 mmol/L Low 98-108 [facility] Comment on above: Performed By: #### L 503.6005, L100.0100, L500.4050 ####[facility] [address] [place], [address] CO2 [Moles/Vol] 17.5 mmol/L Low 21.0-32.0 [facility] Comment on above: Performed By: #### L 503.6005, L100.0100, L500.4050 ####[facility] [address] [place], [address] Creatinine [Mass/Vol] 1.96 mg/dL High 0.70-1.20 [facility] Comment on above: Performed By: #### L 503.6005, L100.0100, L500.4050 ####[facility] [address] [place], [address] ECRCL 26.13 ml/min Low 50-250 [facility] Comment on above: Performed By: #### L 503.6005, L100.0100, L500.4050 ####[facility] [address] [place], [address] GAP 16 High 5-15 [facility] Comment on above: Performed By: #### L 503.6005, L100.0100, L500.4050 ####[facility] [address] [place], [address] GFR/1.73 sq M.predicted among non-blacks MDRD (S/P/Bld) [Vol rate/Area] 27 mL/min/{1.73_m2} Low >60 [facility] Comment on above: Result Comment: mL/m in/1.73m2 CKD-EPI Creatinine Equation (2020) Performed By: #### L 503.6005, L100.0100, L500.4050 ####[facility] [address] [place], [address] Globulin (S) [Mass/Vol] 3.4 g/dL Normal 2.2-4.2 [facility] Comment on above: Performed By: #### L 503.6005, L100.0100, L500.4050 ####[facility] [address] [place], [address] Glucose [Mass/Vol] 253 mg/dL High 70-99 [facility] Comment on above: Performed By: #### L 503.6005, L100.0100, L500.4050 ####[facility] [address] [place], [address] Potassium [Moles/Vol] 4.7 mmol/L Normal 3.3-5.1 [facility] Comment on above: Result Comment: Hemo lysis present, Results??could be affected.?? Performed By: #### L 503.6005, L100.0100, L500.4050 ####[facility] [address] [place], [address] Sodium [Moles/Vol] 131 mmol/L Low 133-145 [facility] Comment on above: Performed By: #### L 503.6005, L100.0100, L500.4050 ####[facility] [address] [place], [address] T PROT 6.3 g/dL Normal 5.9-8.4 [facility] Comment on above: Performed By: #### L 503.6005, L100.0100, L500.4050 ####[facility] [address] [place], [address] Urea nitrogen [Mass/Vol] 78 mg/dL High 4-19 [facility] Comment on above: Performed By: #### L 503.6005, L100.0100, L500.4050 ####[facility] [address] [place], [address] Emergency Department Summary on 05-17-2025 Emergency Department Summary Normal [facility] Eosinophil percentageOrdered By: Jerri Castillo on 05-17-2025 Eosinophils/100 WBC (Bld) 0.0 % 0-5 [facility] Erythrocyte distribution wid th ratioOrdered By: Jerri Castillo on 05-17-2025 Erythrocyte distribution width (RBC) [Ratio] 15.3 % High 11.6-14.6 [facility] Erythrocyte distribution wid th standard deviationOrdered By: Jerri Castillo on 05-17-2025 Erythrocyte distribution width (RBC) [Ratio] 50.8 fl High 35.1-43.9 [facility] Foot min 3 Viewson Foot min 3 Views Normal [facility] Glomerular filtration rate ( GFR) estimation/1.73 sq m using serum, plasma, or whole bOrdered By: Jerri Castillo on 05-17-2025 GFR/1.73 sq M.predicted among non-blacks MDRD (S/P/Bld) [Vol rate/Area] 27 mL/min/{1.73_m2} Low >60 [facility] Hematocrit Auto (Bld) [Volum e fraction]Ordered By: Jerri Castillo on 05-17-2025 Hematocrit (Bld) [Volume fraction] 27.7 % Low 37-47 [facility] Hemoglobin measurementOrdere d By: Jerri Castillo on 05-17-2025 Hemoglobin (Bld) [Mass/Vol] 8.9 g/dL Low 12.0-15.0 [facility] Immature granulocytes/100 WB C Auto (Bld)Ordered By: Jerri Castillo on 05-17-2025 Immature granulocytes/100 WBC (Bld) 0.600 % 0.0-0.9 [facility] Lactic Acidon 05-17-2025 Lactate [Moles/Vol] mmol/L Normal 0.0-2.0 [facility] Comment on above: Order Comment: Y Performed By: #### L 503.6004, L100.0100, L500.4050 ####[facility] [address] [place], [address] MCV (mean corpuscular volume ) determinationOrdered By: Jerri Castillo on 05-17-2025 MCV (RBC) [Entitic vol] 90.2 fL 81-99 [facility] Magnesium measurement (mass/ volume)Ordered By: Maddie Merchant on 05-17-2025 Magnesium (Unsp spec) [Mass/Vol] 2.6 mg/dL High 1.5-2.2 [facility] Mean corpuscular hemoglobin (MCH) determinationOrdered By: Jerri Castillo on 05-17-2025 MCH (RBC) [Entitic mass] 29.0 pg 27.0-32.0 [facility] Monocyte percentageOrdered B y: Jerri Castillo on 05-17-2025 Monocytes/100 WBC (Bld) 10.6 % High 0-10 [facility] Neutrophil percentageOrdered By: Jerri Castillo on 05-17-2025 Neutrophils/100 WBC (Bld) 80.8 % High 47-70 [facility] No Panel InformationOrdered By: Jerri Castillo on 05-17-2025 83 U/L High <32 [facility] Platelet countOrdered By: Stephanie Castillo on 05-17-2025 Platelets (Bld) [#/Vol] 162 10*3/uL 150-450 [facility] Potassium measurement (mass/ volume)Ordered By: Jerri Castillo on 05-17-2025 Potassium (Unsp spec) [Mass/Vol] 4.7 mmol/L 3.3-5.1 [facility] RBC Auto (Bld) [#/Vol]Ordere d By: Jerri Castillo on 05-17-2025 RBC (Bld) [#/Vol] 3.07 10*6/uL Low 4.2-5.4 [facility] Serum creatinine measurement (mass/volume)Ordered By: Jerri Castillo on 05-17-2025 Creatinine [Mass/Vol] 1.96 mg/dL High 0.70-1.20 [facility] Serum globulin measurementOr dered By: Jerri Castillo on 05-17-2025 Globulin (S) [Mass/Vol] 3.4 g/dL 2.2-4.2 [facility] Serum glucose measurement (m ass/volume)Ordered By: Jerri Castillo on 05-17-2025 Glucose [Mass/Vol] 253 mg/dL High 70-99 [facility] Serum or plasma alanine anaya otransferase (ALT) measurementOrdered By: Remus Castillo on 05-17-2025 ALT [Catalytic activity/Vol] 36 U/L High <35 [facility] Serum or plasma albumin natalia urement (mass/volume)Ordered By: Remus Ungur on 05-17-2025 Albumin [Mass/Vol] 2.9 g/dL Low 3.4-4.8 [facility] Serum or plasma albumin/glob ulin mass ratioOrdered By: Remus Ungpraveen on 05-17-2025 Albumin/Globulin [Mass ratio] 0.8 {ratio} Low 0.9-2.4 [facility] Serum or plasma alkaline chelsie sphatase measurementOrdered By: Remus Castillo on 05-17-2025 ALP [Catalytic activity/Vol] 54 U/L 35-104 [facility] Serum or plasma calcium natalia urement (mass/volume)Ordered By: Rem Ungpraveen on 05-17-2025 Calcium [Mass/Vol] 9.2 mg/dL 7.6-11.0 [facility] Serum or plasma creatine kin ase activityOrdered By: Remus Castillo on 05-17-2025 CK [Catalytic activity/Vol] 1177 U/L High 24-195 [facility] Serum or plasma urea nitroge n measurement (mass/volume)Ordered By: Remus Castillo on 05-17-2025 Urea nitrogen [Mass/Vol] 78 mg/dL High 4-19 [facility] Sodium levelOrdered By: Rocio s Jonathan on 05-17-2025 Sodium [Moles/Vol] 131 mmol/L Low 133-145 [facility] Total proteinOrdered By: Rem us Ungpraveen on 05-17-2025 Protein [Mass/Vol] 6.3 g/dL 5.9-8.4 [facility] White blood cell (WBC) count Ordered By: Remus Castillo on 05-17-2025 WBC (Bld) [#/Vol] 7.1 10*3/uL 4.4-11.0 [facility] MR/BMS.BVSon 05-13-2025 MR/BMS.BVS Normal [facility] Cardiovascular stress test r eportOrdered By: Jarret Quiles on 05-11-2025 Study report [facility] [address] [place] [address] MR#: [id number] Acct: [id number] Name: GELY FULLER Rep #: [id number] : 1950 75 From: Jarret Quiles MD [...] of 55%. This note was generated with Fastration software. It may contain incorrectwords, spelling, and punctuation that were not noted in checking the note beforesigning. 05/11/25829 Date _ Jarret Quiles MD CC: Dr. Jarret Quiles MD; Dr. Rishi Vasquez, DO ~ Date Dictated: 05/11/25827 Date Transcribed: 05/11/25827 [employer] Career Manager: [place] Signed [facility] Work Phone: Stress Reporton 05-11-2025 Stress Report Normal [facility] Basic Metabolic Profile (BMP )on 05-08-2025 BUN/CRE 40.4 RATIO High 10-20 [facility] Comment on above: Performed By: #### L 500.2500, L100.0500 ####[facility] [address] [place], [address] Calcium [Mass/Vol] 8.8 mg/dL Normal 7.6-11.0 [facility] Comment on above: Performed By: #### L 500.2500, L100.0500 ####[facility] [address] [place], [address] Chloride [Moles/Vol] 104 mmol/L Normal 98-108 [facility] Comment on above: Performed By: #### L 500.2500, L100.0500 ####[facility] [address] [place], [address] CO2 [Moles/Vol] 22.0 mmol/L Normal 21.0-32.0 [facility] Comment on above: Performed By: #### L 500.2500, L100.0500 ####[facility] [address] [place], [address] Creatinine [Mass/Vol] 0.93 mg/dL Normal 0.70-1.20 [facility] Comment on above: Performed By: #### L 500.2500, L100.0500 ####[facility] [address] [place], [address] GAP 12 Normal 5-15 [facility] Comment on above: Performed By: #### L 500.2500, L100.0500 ####[facility] [address] [place], [address] GFR/1.73 sq M.predicted among non-blacks MDRD (S/P/Bld) [Vol rate/Area] 65 mL/min/{1.73_m2} Normal >60 [facility] Comment on above: Result Comment: mL/m in/1.73m2 CKD-EPI Creatinine Equation (2020) Performed By: #### L 500.2500, L100.0500 ####[facility] [address] [place], [address] Glucose [Mass/Vol] 197 mg/dL High 70-99 [facility] Comment on above: Performed By: #### L 500.2500, L100.0500 ####[facility] [address] [place], [address] Potassium [Moles/Vol] 4.4 mmol/L Normal 3.3-5.1 [facility] Comment on above: Performed By: #### L 500.2500, L100.0500 ####[facility] [address] [place], [address] Sodium [Moles/Vol] 138 mmol/L Normal 133-145 [facility] Comment on above: Performed By: #### L 500.2500, L100.0500 ####[facility] [address] [place], [address] Urea nitrogen [Mass/Vol] 38 mg/dL High 4-19 [facility] Comment on above: Performed By: #### L 500.2500, L100.0500 ####[facility] [address] [place], [address] CBC-Complete Blood Cnt No Di ffon 05-08-2025 Erythrocyte distribution width (RBC) [Ratio] 14.9 % High 11.6-14.6 [facility] Comment on above: Performed By: #### L 500.2500, L100.0500 ####[facility] [address] [place], [address] Hematocrit (Bld) [Volume fraction] 32.0 % Low 37-47 [facility] Comment on above: Performed By: #### L 500.2500, L100.0500 ####[facility] [address] [place], [address] Hemoglobin (Bld) [Mass/Vol] 10.4 g/dL Low 12.0-15.0 [facility] Comment on above: Performed By: #### L 500.2500, L100.0500 ####[facility] [address] [place], [address] MCH (RBC) [Entitic mass] 29.6 pg Normal 27.0-32.0 [facility] Comment on above: Performed By: #### L 500.2500, L100.0500 ####[facility] [address] [place], [address] MCHC (RBC) [Mass/Vol] 32.5 g/dL Normal 32-36 [facility] Comment on above: Performed By: #### L 500.2500, L100.0500 ####[facility] [address] [place], [address] MCV (RBC) [Entitic vol] 91.2 fL Normal 81-99 [facility] Comment on above: Performed By: #### L 500.2500, L100.0500 ####[facility] [address] [place], [address] Platelet mean volume (Bld) [Entitic vol] 11.8 fL Normal 6.2-12.0 [facility] Comment on above: Performed By: #### L 500.2500, L100.0500 ####[facility] [address] [place], [address] Platelets (Bld) [#/Vol] 170 10*3/uL Normal 150-450 [facility] Comment on above: Performed By: #### L 500.2500, L100.0500 ####[facility] [address] [place], [address] RBC (Bld) [#/Vol] 3.51 10*6/uL Low 4.2-5.4 [facility] Comment on above: Performed By: #### L 500.2500, L100.0500 ####[facility] [address] [place], [address] RDW SD 50.3 fl High 35.1-43.9 [facility] Comment on above: Performed By: #### L 500.2500, L100.0500 ####[facility] [address] [place], [address] WBC (Bld) [#/Vol] 6.0 10*3/uL Normal 4.4-11.0 [facility] Comment on above: Performed By: #### L 500.2500, L100.0500 ####[facility] [address] [place], [address] MR/PAT.ANEon 05-08-2025 MR/PAT.ANE Normal [facility] Cardiology Visit Reporton Cardiology Visit Report Normal [facility] GELY FULLER ([id number]) 1950 F Date Time Provider Department 05/06/25 RISHI VASQUEZ During your visit today, we recorded the following information about you: Sara Solis RN 05/06/2025 12:30 PM Signed Pt called in and reports she went in to [facility] and they told her that her insurance doesn't cover the Glipizide 5 mg tablets without a PA. Pt states she got them before and her insurance covered them. Pt states she paid out of pocket for 5 days worth of pills. Prior Authorization Documentation Prior authorization requested for the following medication: Medication: Glipizide Provider: Sushma Artis Insurance Company Name: [employer] Phone number:[phone] Patient ID number: [id number] Pharmacy Name: [facility] Telephone number: [phone] Any Rodriguez LPN 05/06/2025 1:17 PM Signed Electronic PA requested. Any Rodriguez LPN 05/06/2025 1:21 PM Signed This is the PA response. Close reason: Product not covered by this plan. Prior Authorization not available. Payer: [employer] [phone] Note from payer: This drug/product is not [...] 1 tablet by mouth once daily. - Srnvbozm-Hllw-Kxt-Folic Acid 18-0.4 mg tab Take 1 tablet [...] 10/24/2016 CKD (more content not included)... Normal [facility] CNOVon 04-30-2025 CNOV Office Visit (VALERIOPWS ) -------- GELY FULLER ([id number]) 1950 F Date Time Provider Department 04/30/25 11:20 AM [facility] During your visit today, we recorded the following information about you: Pulse Respiration Blood pressure Weight 77/minute 12/minute 130/60 68.9 kg Ld Artis, TAY.FOURDRINIER WIRE WEAVER 04/30/2025 12:26 PM Signed HISTORY OF PRESENT [...] wound dressing changes - Recent visit to rotational moulding operator Dr. Irene, who discussed potential surgery [...] mellitus (HCC) Coronary artery disease Dr. 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 Ortiz [facility]-03/25/2020 left mild, right moderate Multiple thyroid nodules last US 01/2015 Peripheral artery disease due to Diabetes mellitus, Dr. Kwaku Moscoso Rotator cuff syndrome of left shoulder Dr. Regi Montes [facility] PAST SURGICAL HISTORY Procedure Laterality Date AMPUTATION [...] ROTATOR CUFF REPAIR 03/11/14 Dr. Regi Thompson [facility] SLCTV CATHJ EA 1ST ORD [...] 650 m (more content not included)... Normal [facility] Thyroidon 04-27-2025 Thyroid Normal [facility] Duplex ultrasound of carotid artery reportOrdered By: Russell Clement on 04-23-2025 Study report [facility] [address] [place] [address] Carotid Duplex Ultrasound 04/20/25 1337 MR#: [id number] Acct: [id number] Name: GELY FULLER Rep #:[id number] : 1950 75 From: Russell Abraham Attending [...] the left vertebral artery. Procedure Carotid Duplex 20829. This is a Carotid Duplex examination using [...] Dictated: 04/20/25 1337 Date Transcribed: 04/23/25 1037 [employer] Career Manager: Signed [facility] Work Phone: Carotid Duplex Ultrasoundon 04-20-2025 Carotid Duplex Ultrasound Normal [facility] -------- GELY FULLER ([id number]) 1950 F Date Time Provider Department 04/16/25 RISHI VASQUEZ During your visit today, we recorded the following information about you: Hina Man RN 04/16/2025 9:34 AM Signed Jessika calling from [facility] to report plan of care for patient and fpc will continue visit patient 1 time a week for 5 weeks. [facility] will work with patient on wound care to bilateral lower extremities. Patient is being follow by Dr. Irene for wound care. No call back needed. Hina Man RN Allergies As of Date: 04/16/2025 Noted [...] 1 tablet by mouth once daily. - Pclqlaxz-Itop-Oig-Folic Acid 18-0.4 mg tab Take 1 tablet [...] [L72.3, L08.9] 02/26/2019 Coronary artery disease involving [place] heart *05/28/2019 Abnormal urine odor [R82.90] 05/28/2019 [...] Status:Closed by HINA MAN on 04/16/25 Normal [facility] Anion gap in Serum or Plasma Ordered By: Russell Clement on 04-15-2025 Anion gap [Moles/Vol] 13 mmol/L - [facility] BUN/creatinine ratioOrdered By: Russell Clement on 04-15-2025 Urea nitrogen/Creatinine [Mass ratio] 33.4 mg/mg High 10-20 [facility] Basic Metabolic Profile (BMP )on 04-15-2025 BUN/CRE 33.4 RATIO High [address] [place] [address] Comment on above: Performed By: #### L 100.0500, L500.2500 ####[facility] [address] [place], [address] Calcium [Mass/Vol] 9.3 mg/dL Normal 7.6-11.0 [facility] Comment on above: Performed By: #### L 100.0500, L500.2500 ####[facility] [address] [place], [address] Chloride [Moles/Vol] 106 mmol/L Normal 98-108 [facility] Comment on above: Performed By: #### L 100.0500, L500.2500 ####[facility] [address] [place], [address] CO2 [Moles/Vol] 21.9 mmol/L Normal 21.0-32.0 [facility] Comment on above: Performed By: #### L 100.0500, L500.2500 ####[facility] [address] [place], [address] Creatinine [Mass/Vol] 1.07 mg/dL Normal 0.70-1.20 [facility] Comment on above: Performed By: #### L 100.0500, L500.2500 ####[facility] [address] [place], [address] ECRCL 48.30 ml/min Low 50-250 [facility] Comment on above: Performed By: #### L 100.0500, L500.2500 ####[facility] [address] [place], [address] GAP 13 Normal 5-15 [facility] Comment on above: Performed By: #### L 100.0500, L500.2500 ####[facility] [address] [place], [address] GFR/1.73 sq M.predicted among non-blacks MDRD (S/P/Bld) [Vol rate/Area] 55 mL/min/{1.73_m2} Low >60 [facility] Comment on above: Result Comment: mL/m in/1.73m2 CKD-EPI Creatinine Equation (2020) Performed By: #### L 100.0500, L500.2500 ####[facility] [address] [place], [address] Glucose [Mass/Vol] 152 mg/dL High 70-99 [facility] Comment on above: Performed By: #### L 100.0500, L500.2500 ####[facility] [address] [place], [address] Potassium [Moles/Vol] 4.9 mmol/L Normal 3.3-5.1 [facility] Comment on above: Performed By: #### L 100.0500, L500.2500 ####[facility] [address] [place], [address] Sodium [Moles/Vol] 140 mmol/L Normal 133-145 [facility] Comment on above: Performed By: #### L 100.0500, L500.2500 ####[facility] [address] [place], [address] Urea nitrogen [Mass/Vol] 36 mg/dL High 4-19 [facility] Comment on above: Performed By: #### L 100.0500, L500.2500 ####[facility] [address] [place], [address] CBC-Complete Blood Cnt No Di ffon 04-15-2025 Erythrocyte distribution width (RBC) [Ratio] 15.8 % High 11.6-14.6 [facility] Comment on above: Performed By: #### L 100.0500, L500.2500 ####[facility] [address] [place], [address] Hematocrit (Bld) [Volume fraction] 38.4 % Normal 37-47 [facility] Comment on above: Performed By: #### L 100.0500, L500.2500 ####[facility] [address] [place], [address] Hemoglobin (Bld) [Mass/Vol] 12.2 g/dL Normal 12.0-15.0 [facility] Comment on above: Performed By: #### L 100.0500, L500.2500 ####[facility] [address] [place], [address] MCH (RBC) [Entitic mass] 29.5 pg Normal 27.0-32.0 [facility] Comment on above: Performed By: #### L 100.0500, L500.2500 ####[facility] [address] [place], [address] MCHC (RBC) [Mass/Vol] 31.8 g/dL Low 32-36 [facility] Comment on above: Performed By: #### L 100.0500, L500.2500 ####[facility] [address] [place], [address] MCV (RBC) [Entitic vol] 92.8 fL Normal 81-99 [facility] Comment on above: Performed By: #### L 100.0500, L500.2500 ####[facility] [address] [place], [address] Platelet mean volume (Bld) [Entitic vol] 11.4 fL Normal 6.2-12.0 [facility] Comment on above: Performed By: #### L 100.0500, L500.2500 ####[facility] [address] [place], [address] Platelets (Bld) [#/Vol] 205 10*3/uL Normal 150-450 [facility] Comment on above: Performed By: #### L 100.0500, L500.2500 ####[facility] [address] [place], [address] RBC (Bld) [#/Vol] 4.14 10*6/uL Low 4.2-5.4 [facility] Comment on above: Performed By: #### L 100.0500, L500.2500 ####[facility] [address] [place], [address] RDW SD 53.9 fl High 35.1-43.9 [facility] Comment on above: Performed By: #### L 100.0500, L500.2500 ####[facility] [address] [place], [address] WBC (Bld) [#/Vol] 7.7 10*3/uL Normal 4.4-11.0 [facility] Comment on above: Performed By: #### L 100.0500, L500.2500 ####[facility] [address] [place], [address] [facility] -------- GELY FULLER ([id number]) 1950 F Date Time Provider Department 04/15/25 LD ARTIS [facility] During your visit today, we [...] 1 tablet by mouth once daily. - Qzitmdrt-Kezj-Wiq-Folic Acid 18-0.4 mg tab Take 1 tablet [...] [L72.3, L08.9] 02/26/2019 Coronary artery disease involving [place] heart *05/28/2019 Abnormal urine odor [R82.90] 05/28/2019 [...] Status:Closed by LD ARTIS on 04/15/25 Normal [facility] Carbon dioxide, total [Moles /volume] in Central venous bloodOrdered By: Russell Clement on 04-15-2025 CO2 [Moles/Vol] 21.9 mmol/L 21.0-32.0 [facility] Chloride assayOrdered By: Julien Clement on 04-15-2025 Chloride [Moles/Vol] 106 mmol/L 98-108 [facility] Erythrocyte distribution wid th ratioOrdered By: Russell Clement on 04-15-2025 Erythrocyte distribution width (RBC) [Ratio] 15.8 % High 11.6-14.6 [facility] Erythrocyte distribution wid th standard deviationOrdered By: Russell Clement on 04-15-2025 Erythrocyte distribution width (RBC) [Ratio] 53.9 fl High 35.1-43.9 [facility] Glomerular filtration rate ( GFR) estimation/1.73 sq m using serum, plasma, or whole bOrdered By: Russell Clement on 04-15-2025 GFR/1.73 sq M.predicted among non-blacks MDRD (S/P/Bld) [Vol rate/Area] 55 mL/min/{1.73_m2} Low >60 [facility] Comment on above: mL/min/1.73m2 CKD-EP I Creatinine Equation (2020) Hematocrit Auto (Bld) [Volum e fraction]Ordered By: Russell Clement on 04-15-2025 Hematocrit (Bld) [Volume fraction] 38.4 % 37-47 [facility] Hemoglobin measurementOrdere d By: Russell Clement on 04-15-2025 Hemoglobin (Bld) [Mass/Vol] 12.2 g/dL 12.0-15.0 [facility] MCV (mean corpuscular volume ) determinationOrdered By: Russell Clement on 04-15-2025 MCV (RBC) [Entitic vol] 92.8 fL 81-99 [facility] Mean corpuscular hemoglobin (MCH) determinationOrdered By: Russell Clement on 04-15-2025 MCH (RBC) [Entitic mass] 29.5 pg 27.0-32.0 [facility] Mean corpuscular hemoglobin concentration (MCHC) determinationOrdered By: Russell Clement on 04-15-2025 MCHC (RBC) [Mass/Vol] 31.8 g/dL Low 32-36 [facility] Mean platelet volume determi nationOrdered By: Russell Clement on 04-15-2025 Platelet mean volume (Bld) [Entitic vol] 11.4 fL 6.2-12.0 [facility] Operative Reporton Operative Report Normal [facility] Platelet countOrdered By: Julien Clement on 04-15-2025 Platelets (Bld) [#/Vol] 205 10*3/uL 150-450 [facility] Potassium measurement (mass/ volume)Ordered By: Russell Clement on 04-15-2025 Potassium (Unsp spec) [Mass/Vol] 4.9 mmol/L 3.3-5.1 [facility] RBC Auto (Bld) [#/Vol]Ordere d By: Russell Clement on 04-15-2025 RBC (Bld) [#/Vol] 4.14 10*6/uL Low 4.2-5.4 [facility] Serum creatinine measurement (mass/volume)Ordered By: Russell Pérezey on 04-15-2025 Creatinine [Mass/Vol] 1.07 mg/dL 0.70-1.20 [facility] Serum glucose measurement (m ass/volume)Ordered By: Russell Pérezey on 04-15-2025 Glucose [Mass/Vol] 152 mg/dL High 70-99 [facility] Serum or plasma calcium natalia urement (mass/volume)Ordered By: Russell Pérezey on 04-15-2025 Calcium [Mass/Vol] 9.3 mg/dL 7.6-11.0 [facility] Serum or plasma urea nitroge n measurement (mass/volume)Ordered By: Russell Antlers on 04-15-2025 Urea nitrogen [Mass/Vol] 36 mg/dL High 4-19 [facility] Sodium levelOrdered By: Russellyuri Pérezey on 04-15-2025 Sodium [Moles/Vol] 140 mmol/L 133-145 [facility] White blood cell (WBC) count Ordered By: Russell Clement on 04-15-2025 WBC (Bld) [#/Vol] 7.7 10*3/uL 4.4-11.0 [facility] CNPNon 04-10-2025 [facility] -------- GELY FULLER ([id number]) 1950 F Date Time Provider Department 04/10/25 LD [facility] During your visit today, we [...] or 3b CKD (HCC) [N18.30] Order(s):HEMOGLOBIN A1C [LBOJV6S] Order #: [id number] FUTURE COMPREHENSIVE METABOLIC PANEL [SQCMP] Order #: [id number] FUTURE glipiZIDE (GLUCOTROL XL) 5 mg 24 [...] 1 tablet by mouth once daily. - Ogdxhgoc-Buvi-Rxt-Folic Acid 18-0.4 mg tab Take 1 tablet by mouth once daily. - omega-3 fatty acids 1,000 mg cap Take 1 capsule by mouth once daily. - Aspirin 81 mg Tab Take 1 tablet by mouth once daily. Take with food. Medication notes this encounter METFORMIN 500 MG TABLET >> Ld Artis, TAY.FOURDRINIER WIRE WEAVER 04/10/2025 4:[address] solomon [...] [L72.3, L08.9] 02/26/2019 Coronary artery disease involving [place] heart *05/28/2019 Abnormal urine odor [R82.90] 05/28/2019 [...] for prudencio (more content not included)... Normal [facility] Basic Metabolic Profile (BMP )on 04-09-2025 BUN Normal 4-19 [facility] Comment on above: Result Comment: Canc elled via OM: Order cancelled - Patient discharged Performed By: #### L 100.0100, L500.2500 ####[facility] [address] [facility] [address] BUN/CRE Normal 10-20 [facility] Comment on above: Result Comment: Canc elled via OM: Order cancelled - Patient discharged Performed By: #### L 100.0100, L500.2500 ####[facility] [address] [facility] [address] Calcium Normal 7.6-11.0 [facility] Comment on above: Result Comment: Canc elled via OM: Order cancelled - Patient discharged Performed By: #### L 100.0100, L500.2500 ####[facility] [address] [place], [address] CL Normal 98-108 [facility] Comment on above: Result Comment: Canc elled via OM: Order cancelled - Patient discharged Performed By: #### L 100.0100, L500.2500 ####[facility] [address] [place], [address] CO2 Normal 21.0-32.0 [facility] Comment on above: Result Comment: Canc elled via OM: Order cancelled - Patient discharged Performed By: #### L 100.0100, L500.2500 ####[facility] [address] [place], [address] CREAT,SERUM Normal 0.70-1.20 [facility] Comment on above: Result Comment: Canc elled via OM: Order cancelled - Patient discharged Performed By: #### L 100.0100, L500.2500 ####[facility] [address] [place], [address] eGFR Normal >60 [facility] Comment on above: Result Comment: Canc elled via OM: Order cancelled - Patient discharged Performed By: #### L 100.0100, L500.2500 ####[facility] [address] [place], [address] GAP Normal 5-15 [facility] Comment on above: Result Comment: Canc elled via OM: Order cancelled - Patient discharged Performed By: #### L 100.0100, L500.2500 ####[facility] [address] [place], [address] GLU Normal 70-99 [facility] Comment on above: Result Comment: Canc elled via OM: Order cancelled - Patient discharged Performed By: #### L 100.0100, L500.2500 ####[facility] [address] [place], [address] Potassium Normal 3.3-5.1 [facility] Comment on above: Result Comment: Canc elled via OM: Order cancelled - Patient discharged Performed By: #### L 100.0100, L500.2500 ####[facility] [address] [place], [address] Basic Metabolic Profile (BMP) Normal 133-145 [facility] Comment on above: Result Comment: Canc elled via OM: Order cancelled - Patient discharged Performed By: #### L 100.0100, L500.2500 ####[facility] [address] [place], [address] CBC W/Diff, Automatedon 05-2 Absolute Neut Normal 2.0-7.7 [facility] Comment on above: Result Comment: Canc elled via OM: Order cancelled - Patient discharged Performed By: #### L 100.0100, L500.2500 ####[facility] [address] [place], [address] HCT Normal 37-47 [facility] Comment on above: Result Comment: Canc elled via OM: Order cancelled - Patient discharged Performed By: #### L 100.0100, L500.2500 ####[facility] [address] [place], [address] HGB Normal 12.0-15.0 [facility] Comment on above: Result Comment: Canc elled via OM: Order cancelled - Patient discharged Performed By: #### L 100.0100, L500.2500 ####[facility] [address] [place], [address] MCH Normal 27.0-32.0 [facility] Comment on above: Result Comment: Canc elled via OM: Order cancelled - Patient discharged Performed By: #### L 100.0100, L500.2500 ####[facility] [address] [place], [address] MCHC Normal 32-36 [facility] Comment on above: Result Comment: Canc elled via OM: Order cancelled - Patient discharged Performed By: #### L 100.0100, L500.2500 ####[facility] [address] [place], [address] MCV Normal 81-99 [facility] Comment on above: Result Comment: Canc elled via OM: Order cancelled - Patient discharged Performed By: #### L 100.0100, L500.2500 ####[facility] [address] [place], [address] NEUT% Normal 47-70 [facility] Comment on above: Result Comment: Canc elled via OM: Order cancelled - Patient discharged Performed By: #### L 100.0100, L500.2500 ####[facility] [address] [place], [address] PLT Normal 150-450 [facility] Comment on above: Result Comment: Canc elled via OM: Order cancelled - Patient discharged Performed By: #### L 100.0100, L500.2500 ####[facility] [address] [place], [address] RBC Normal 4.2-5.4 [facility] Comment on above: Result Comment: Canc elled via OM: Order cancelled - Patient discharged Performed By: #### L 100.0100, L500.2500 ####[facility] [address] [place], [address] RDW CV Normal 11.6-14.6 [facility] Comment on above: Result Comment: Canc elled via OM: Order cancelled - Patient discharged Performed By: #### L 100.0100, L500.2500 ####[facility] [address] [place], [address] RDW SD Normal 35.1-43.9 [facility] Comment on above: Result Comment: Canc elled via OM: Order cancelled - Patient discharged Performed By: #### L 100.0100, L500.2500 ####[facility] [address] [place], [address] WBC Normal 4.4-11.0 [facility] Comment on above: Result Comment: Canc elled via OM: Order cancelled - Patient discharged Performed By: #### L 100.0100, L500.2500 ####[facility] [address] [place], [address] MR/BMS.BVSon 04-03-2025 MR/BMS.BVS Normal [facility] Basic Metabolic Profile (BMP )on 04-02-2025 BUN Normal 4-19 [facility] Comment on above: Result Comment: Canc elled via OM: Order cancelled - Patient discharged Performed By: #### L 500.2500, L100.0100 ####[facility] [address] [place], [address] BUN/CRE Normal 10-20 [facility] Comment on above: Result Comment: Canc elled via OM: Order cancelled - Patient discharged Performed By: #### L 500.2500, L100.0100 ####[facility] [address] [place], [address] Calcium Normal 7.6-11.0 [facility] Comment on above: Result Comment: Canc elled via OM: Order cancelled - Patient discharged Performed By: #### L 500.2500, L100.0100 ####[facility] [address] [place], [address] CL Normal 98-108 [facility] Comment on above: Result Comment: Canc elled via OM: Order cancelled - Patient discharged Performed By: #### L 500.2500, L100.0100 ####[facility] [address] [place], [address] CO2 Normal 21.0-32.0 [facility] Comment on above: Result Comment: Canc elled via OM: Order cancelled - Patient discharged Performed By: #### L 500.2500, L100.0100 ####[facility] [address] [place], [address] CREAT,SERUM Normal 0.70-1.20 [facility] Comment on above: Result Comment: Canc elled via OM: Order cancelled - Patient discharged Performed By: #### L 500.2500, L100.0100 ####[facility] [address] [place], [address] eGFR Normal >60 [facility] Comment on above: Result Comment: Canc elled via OM: Order cancelled - Patient discharged Performed By: #### L 500.2500, L100.0100 ####[facility] [address] [place], [address] GAP Normal 5-15 [facility] Comment on above: Result Comment: Canc elled via OM: Order cancelled - Patient discharged Performed By: #### L 500.2500, L100.0100 ####[facility] [address] [place], [address] GLU Normal 70-99 [facility] Comment on above: Result Comment: Canc elled via OM: Order cancelled - Patient discharged Performed By: #### L 500.2500, L100.0100 ####[facility] [address] [place], [address] Potassium Normal 3.3-5.1 [facility] Comment on above: Result Comment: Canc elled via OM: Order cancelled - Patient discharged Performed By: #### L 500.2500, L100.0100 ####[facility] [address] [place], [address] Basic Metabolic Profile (BMP) Normal 133-145 [facility] Comment on above: Result Comment: Canc elled via OM: Order cancelled - Patient discharged Performed By: #### L 500.2500, L100.0100 ####[facility] [address] [place], [address] CBC W/Diff, Automatedon 05-1 Absolute Neut Normal 2.0-7.7 [facility] Comment on above: Result Comment: Canc elled via OM: Order cancelled - Patient discharged Performed By: #### L 500.2500, L100.0100 ####[facility] [address] [place], [address] HCT Normal 37-47 [facility] Comment on above: Result Comment: Canc elled via OM: Order cancelled - Patient discharged Performed By: #### L 500.2500, L100.0100 ####[facility] [address] [place], [address] HGB Normal 12.0-15.0 [facility] Comment on above: Result Comment: Canc elled via OM: Order cancelled - Patient discharged Performed By: #### L 500.2500, L100.0100 ####[facility] [address] [place], [address] MCH Normal 27.0-32.0 [facility] Comment on above: Result Comment: Canc elled via OM: Order cancelled - Patient discharged Performed By: #### L 500.2500, L100.0100 ####[facility] [address] [place], [address] MCHC Normal 32-36 [facility] Comment on above: Result Comment: Canc elled via OM: Order cancelled - Patient discharged Performed By: #### L 500.2500, L100.0100 ####[facility] [address] [place], [address] MCV Normal 81-99 [facility] Comment on above: Result Comment: Canc elled via OM: Order cancelled - Patient discharged Performed By: #### L 500.2500, L100.0100 ####[facility] [address] [place], [address] NEUT% Normal 47-70 [facility] Comment on above: Result Comment: Canc elled via OM: Order cancelled - Patient discharged Performed By: #### L 500.2500, L100.0100 ####[facility] [address] [place], [address] PLT Normal 150-450 [facility] Comment on above: Result Comment: Canc elled via OM: Order cancelled - Patient discharged Performed By: #### L 500.2500, L100.0100 ####[facility] [address] [place], [address] RBC Normal 4.2-5.4 [facility] Comment on above: Result Comment: Canc elled via OM: Order cancelled - Patient discharged Performed By: #### L 500.2500, L100.0100 ####[facility] [address] [place], [address] RDW CV Normal 11.6-14.6 [facility] Comment on above: Result Comment: Canc elled via OM: Order cancelled - Patient discharged Performed By: #### L 500.2500, L100.0100 ####[facility] [address] [place], [address] RDW SD Normal 35.1-43.9 [facility] Comment on above: Result Comment: Canc elled via OM: Order cancelled - Patient discharged Performed By: #### L 500.2500, L100.0100 ####[facility] [address] [place], [address] WBC Normal 4.4-11.0 [facility] Comment on above: Result Comment: Canc elled via OM: Order cancelled - Patient discharged Performed By: #### L 500.2500, L100.0100 ####[facility] [address] [place], [address] CNOVon 03-27-2025 CNOV Office Visit (FAMPWS ) -------- GELY FULLER ([id number]) 1950 F Date Time Provider Department 03/27/25 10:00 AM YUMIKO WHITEHEAD During your visit today, we recorded the following information about you: Pulse Respiration Blood pressure 74/minute 16/minute 134/68 Yumiko Whitehead APRN.FOURDRINIER WIRE WEAVER 03/27/2025 11:01 AM Signed 03/26/2025 Patient presents with: ER F/U: [facility] ED -03/20/25 Multiple falls, gangrene SADIE feet SUBJECTIVE: This is a 75 year old that is here today for Above Complaints. HOSPITAL/ER FOLLOW UP: Reason for visit: Recurrent falls, Which facility: [facility] transferred to [facility] Date of visit: 03/07/2025-03/11/2025 [facility] then to TCU 03/11/2025-03/19/2025 Diagnosis: UTI, [...] mellitus (HCC) Coronary artery disease Dr. 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 Ortiz [facility]-03/25/2020 left mild, right moderate Multiple thyroid nodules last US 01/2015 Peripheral artery disease (HCC) due to Diabetes mellitus, Dr. Kwaku Moscoso Rotator cuff syndrome of left shoulder Dr. Deluna [facility] ALLERGIES Sulfa (Sulfonamide Antibiotics) MEDICATIONS Current Outpatient [...] Take 1 tablet by mouth once daily. Vfquctcp-Kjhp-Vox-Folic Acid 18-0.4 mg tab Take 1 tablet [...] due on (more content not included)... Normal [facility] 03-27-2025 CNPN Telephone ([facility]) -------- GELY FULLER ([id number]) 1950 F Date Time Provider Department 03/27/25 YUMIKO WHITEHEAD During your visit today, we recorded the following information about you: Yumiko Whitehead APRN.CNP 03/27/2025 10:59 AM Signed [facility] In my outbox. YAEL Trujillo Kath[place], [place] 03/30/2025 10:04 AM Signed Order, OV, discharge summary faxed to [email or web address]. Michaela Millan MA Allergies As of Date: [...] 1 tablet by mouth once daily. - Abmihlkk-Nkyd-Wtc-Folic Acid 18-0.4 mg tab Take 1 tablet [...] [L72.3, L08.9] 02/26/2019 Coronary artery disease involving [place] heart *05/28/2019 Abnormal urine odor [R82.90] 05/28/2019 [...] Status:Closed by MICHAELA MILLAN on 03/30/25 Normal [facility] Basic Metabolic Profile (BMP )on 03-26-2025 BUN Normal 4-19 [facility] Comment on above: Result Comment: Canc elled via OM: Order cancelled - Patient discharged Performed By: #### L 100.0100, L500.2500 ####[facility] [address] [place], [address] BUN/CRE Normal 10-20 [facility] Comment on above: Result Comment: Canc elled via OM: Order cancelled - Patient discharged Performed By: #### L 100.0100, L500.2500 ####[facility] [address] [place], [address] Calcium Normal 7.6-11.0 [facility] Comment on above: Result Comment: Canc elled via OM: Order cancelled - Patient discharged Performed By: #### L 100.0100, L500.2500 ####[facility] [address] [place], [address] CL Normal 98-108 [facility] Comment on above: Result Comment: Canc elled via OM: Order cancelled - Patient discharged Performed By: #### L 100.0100, L500.2500 ####[facility] [address] [place], [address] CO2 Normal 21.0-32.0 [facility] Comment on above: Result Comment: Canc elled via OM: Order cancelled - Patient discharged Performed By: #### L 100.0100, L500.2500 ####[facility] [address] [place], [address] CREAT,SERUM Normal 0.70-1.20 [facility] Comment on above: Result Comment: Canc elled via OM: Order cancelled - Patient discharged Performed By: #### L 100.0100, L500.2500 ####[facility] [address] [place], [address] eGFR Normal >60 [facility] Comment on above: Result Comment: Canc elled via OM: Order cancelled - Patient discharged Performed By: #### L 100.0100, L500.2500 ####[facility] [address] [place], [address] GAP Normal 5-15 [facility] Comment on above: Result Comment: Canc elled via OM: Order cancelled - Patient discharged Performed By: #### L 100.0100, L500.2500 ####[facility] [address] [place], [address] GLU Normal 70-99 [facility] Comment on above: Result Comment: Canc elled via OM: Order cancelled - Patient discharged Performed By: #### L 100.0100, L500.2500 ####[facility] [address] [place], [address] Potassium Normal 3.3-5.1 [facility] Comment on above: Result Comment: Canc elled via OM: Order cancelled - Patient discharged Performed By: #### L 100.0100, L500.2500 ####[facility] [address] [place], [address] Basic Metabolic Profile (BMP) Normal 133-145 [facility] Comment on above: Result Comment: Canc elled via OM: Order cancelled - Patient discharged Performed By: #### L 100.0100, L500.2500 ####[facility] [address] [place], [address] CBC W/Diff, Automatedon 05-0 -2024 Absolute Neut Normal 2.0-7.7 [facility] Comment on above: Result Comment: Canc elled via OM: Order cancelled - Patient discharged Performed By: #### L 100.0100, L500.2500 ####[facility] [address] [place], [address] HCT Normal 37-47 [facility] Comment on above: Result Comment: Canc elled via OM: Order cancelled - Patient discharged Performed By: #### L 100.0100, L500.2500 ####[facility] [address] [place], [address] HGB Normal 12.0-15.0 [facility] Comment on above: Result Comment: Canc elled via OM: Order cancelled - Patient discharged Performed By: #### L 100.0100, L500.2500 ####[facility] [address] [place], [address] MCH Normal 27.0-32.0 [facility] Comment on above: Result Comment: Canc elled via OM: Order cancelled - Patient discharged Performed By: #### L 100.0100, L500.2500 ####[facility] [address] [place], [address] MCHC Normal 32-36 [facility] Comment on above: Result Comment: Canc elled via OM: Order cancelled - Patient discharged Performed By: #### L 100.0100, L500.2500 ####[facility] [address] [place], [address] MCV Normal 81-99 [facility] Comment on above: Result Comment: Canc elled via OM: Order cancelled - Patient discharged Performed By: #### L 100.0100, L500.2500 ####[facility] [address] [place], [address] NEUT% Normal 47-70 [facility] Comment on above: Result Comment: Canc elled via OM: Order cancelled - Patient discharged Performed By: #### L 100.0100, L500.2500 ####[facility] [address] [place], [address] PLT Normal 150-450 [facility] Comment on above: Result Comment: Canc elled via OM: Order cancelled - Patient discharged Performed By: #### L 100.0100, L500.2500 ####[facility] [address] [place], [address] RBC Normal 4.2-5.4 [facility] Comment on above: Result Comment: Canc elled via OM: Order cancelled - Patient discharged Performed By: #### L 100.0100, L500.2500 ####[facility] [address] [place], [address] RDW CV Normal 11.6-14.6 [facility] Comment on above: Result Comment: Canc elled via OM: Order cancelled - Patient discharged Performed By: #### L 100.0100, L500.2500 ####[facility] [address] [place], [address] RDW SD Normal 35.1-43.9 [facility] Comment on above: Result Comment: Canc elled via OM: Order cancelled - Patient discharged Performed By: #### L 100.0100, L500.2500 ####[facility] [address] [place], [address] WBC Normal 4.4-11.0 [facility] Comment on above: Result Comment: Canc elled via OM: Order cancelled - Patient discharged Performed By: #### L 100.0100, L500.2500 ####[facility] [address] [place], [address] CNPNon 03-26-2025 MARKN Telephone (FAMPWS) -------- GELY FULLER ([id number]) 1950 F Date Time Provider Department 03/26/25 VASQUEZRISHI WATSON Melinda FAMPWS During your visit today, we recorded the following information about you: Lebron Jacome RN 03/26/2025 12:50 PM Signed [facility] HH- reporting updated POC: plans to [...] [facility] wheeled walker. No call back needed if pcp agrees. Clary Andres APRN.FOURDRINIER WIRE WEAVER 03/26/2025 1:31 PM Signed Agree. BP will be reassessed at appointment tomorrow. Let us know if not addressed at appointment tomorrow. Thank you, Clary Andres APRN.FOURDRINIER WIRE WEAVER Allergies As of Date: 03/26/2025 Noted Allergy [...] 1 tablet by mouth once daily. - Gcadexyg-Klhg-Tqc-Folic Acid 18-0.4 mg tab Take 1 tablet [...] [L72.3, L08.9] 02/26/2019 Coronary artery disease involving [place] heart *05/28/2019 Abnormal urine odor [R82.90] 05/28/2019 [...] Encounter Status:Closed by SELMA GALEANO on 03/26/25 [facility] 03-24-2025 CNPN Telephone (FAMPWS) -------- GELY FULLER ([id number]) 1950 F Date Time Provider Department 03/24/25 [facility] During your visit today, we recorded the following information about you: Clemencia Chapman RN 03/24/2025 3:02 PM Signed Ish[facility] PT calling from [facility] to report plan of care for [...] LPN - Fully Assessed Reason for Visit: [facility] PT POC [Other] Prescriptions as of [...] 1 tablet by mouth once daily. - Xgicaaym-Vmeh-Izm-Folic Acid 18-0.4 mg tab Take 1 tablet [...] [L72.3, L08.9] 02/26/2019 Coronary artery disease involving [place] heart *05/28/2019 Abnormal urine odor [R82.90] 05/28/2019 [...] Status:Closed by CLEMENCIA CHAPMAN on 03/25/25 Normal [facility] CNPNon 03-23-2025 CNPN Telephone (FAMPWS) -------- GEYL FULLER ([id number]) 1950 F Date Time Provider Department 03/23/25 [facility] During your visit today, we recorded the following information about you: Melly Pinon LPN 03/23/2025 1:34 PM Signed Tatum with [facility] Nursing calls to report she saw [...] 1 tablet by mouth once daily. - Lhcxawfr-Ptja-Luw-Folic Acid 18-0.4 mg tab Take 1 tablet [...] [L72.3, L08.9] 02/26/2019 Coronary artery disease involving [place] heart *05/28/2019 Abnormal urine odor [R82.90] 05/28/2019 [...] Status:Closed by JESENIA MCGEE on 03/24/25 Normal [facility] Bedside Glucoseon 03-20-2025 FINGERSTICK GLU 155 mg/dL High 74-106 [facility] Comment on above: Result Comment: JEREMIAS PADILLA OF PATIENT CARE PER NURSING PROTOCOL Performed By: #### L 501.080 ####[facility] [address] [place], [address] [facility] 03-20-2025 [facility] Telephone (FAMWS) -------- GELY FULLER ([id number]) 1950 F Date Time Provider Department 03/20/25 RISHI VASQUEZ [facility] During your visit today, we recorded the following information about you: Clemencia Chapman RN 03/20/2025 12:55 PM Signed Yvonne with [facility] calls to ask if provider would be willing to follow their discharge orders for SN, PT, OT. Patient discharged home today from [facility] after having hospitalization and rehab for falls and UTI. Call back number is [phone]. GORGE Bo Jordan L, DO 03/20/2025 5:03 PM Signed Yes DO Kit Ernst Krystle, RN 03/23/2025 8:30 AM Signed Call placed to Yvonne and notified of below. Clemencia Chapman RN Allergies As of Date: 03/20/2025 Noted Allergy Reaction SULFA (SULFONAMIDE ANTIBIOTICS) 01/13/2013 16 - Unknown Comments: childhood Date Reviewed: 12/05/2024 Reviewed by: Annmarie Adhikari LPN - Fully Assessed Reason for Visit: Orders [231] Prescriptions as of 03/23/2025 - hydroCHLOROthiazide 25 [...] 1 tablet by mouth once daily. - Vnugeghc-Cxol-Obs-Folic Acid 18-0.4 mg tab Take 1 tablet [...] [L72.3, L08.9] 02/26/2019 Coronary artery disease involving [place] heart *05/28/2019 Abnormal urine odor [R82.90] 05/28/2019 [...] Status:Closed by CLEMENCIA CHAPMAN on 03/23/25 Normal [facility] Glucose measurement at [facility] deOrdered By: Phong Solomon on 03-20-2025 Glucose [Mass/Vol] 155 mg/dL High 74-106 [facility] Comment on above: MANAGEMENT OF PATIEN T CARE PER NURSING PROTOCOL Absolute lymphocyte countOrd ered By: Phong Solomon on 03-19-2025 Lymphocytes Auto (Unsp spec) [#/Vol] 1.25 10*3/uL 0.83-4.51 [facility] Absolute neutrophil countOrd ered By: Phong Solomon on 03-19-2025 Neutrophils (Bld) [#/Vol] 3.5 10*3/uL 2.0-7.7 [facility] Anion gap in Serum or Plasma Ordered By: Phong Solomon on 03-19-2025 Anion gap [Moles/Vol] 8 mmol/L 5-15 [facility] Automated lymphocyte count a s percentage of total leukocytesOrdered By: Phong Solomon on 03-19-2025 Lymphocytes/100 WBC Auto (Unsp spec) 22.0 % 19-41 [facility] BRCon 03-19-2025 RC Normal [facility] Comment on above: Result Comment: [id number] AP RC TRANSFUSED 03/19/25 [id number] AP RC TRANSFUSED 03/19/25 1004 Performed By: #### B RC, BTS ####[facility] [address] [place], [address] BUN/creatinine ratioOrdered By: Phong Solomon on 03-19-2025 Urea nitrogen/Creatinine [Mass ratio] 22.6 mg/mg High 10-20 [facility] Basic Metabolic Profile (BMP )on 03-19-2025 BUN/CRE 22.6 RATIO High 1020 [facility] Comment on above: Performed By: #### L 100.0100, L500.2500 ####[facility] [address] [place], [address] Calcium [Mass/Vol] 8.6 mg/dL Normal 7.6-11.0 [facility] Comment on above: Performed By: #### L 100.0100, L500.2500 ####[facility] [address] [place], [address] Chloride [Moles/Vol] 112 mmol/L High 98-108 [facility] Comment on above: Performed By: #### L 100.0100, L500.2500 ####[facility] [address] [place], [address] CO2 [Moles/Vol] 22.1 mmol/L Normal 21.0-32.0 [facility] Comment on above: Performed By: #### L 100.0100, L500.2500 ####[facility] [address] [place], [address] Creatinine [Mass/Vol] 1.47 mg/dL High 0.70-1.20 [facility] Comment on above: Performed By: #### L 100.0100, L500.2500 ####[facility] [address] [place], [address] ECRCL 35.30 ml/min Low 50-250 [facility] Comment on above: Performed By: #### L 100.0100, L500.2500 ####[facility] [address] [place], [address] GAP 8 Normal 5-15 [facility] Comment on above: Performed By: #### L 100.0100, L500.2500 ####[facility] [address] [place], [address] GFR/1.73 sq M.predicted among non-blacks MDRD (S/P/Bld) [Vol rate/Area] 37 mL/min/{1.73_m2} Low >60 [facility] Comment on above: Result Comment: mL/m in/1.73m2 CKD-EPI Creatinine Equation (2020) Performed By: #### L 100.0100, L500.2500 ####[facility] [address] [place], [address] Glucose [Mass/Vol] 111 mg/dL High 70-99 [facility] Comment on above: Performed By: #### L 100.0100, L500.2500 ####[facility] [address] [place], [address] Potassium [Moles/Vol] 4.2 mmol/L Normal 3.3-5.1 [facility] Comment on above: Performed By: #### L 100.0100, L500.2500 ####[facility] [address] [place], [address] Sodium [Moles/Vol] 142 mmol/L Normal 133-145 [facility] Comment on above: Performed By: #### L 100.0100, L500.2500 ####[facility] [address] [place], [address] Urea nitrogen [Mass/Vol] 33 mg/dL High 4-19 [facility] Comment on above: Performed By: #### L 100.0100, L500.2500 ####[facility] [address] [place], [address] Basophil percentageOrdered B y: Phong Solomon on 03-19-2025 Basophils/100 WBC (Bld) 1.4 % High 0-1 [facility] Bedside Glucoseon 03-19-2025 FINGERSTICK GLU 230 mg/dL High 74-106 [facility] Comment on above: Result Comment: JEREMIAS GEMENT OF PATIENT CARE PER NURSING PROTOCOL Performed By: #### L 501.080 ####[facility] [address] [place], [address] FINGERSTICK GLU 330 mg/dL High 74-106 [facility] Comment on above: Result Comment: JEREMIAS GEMENT OF PATIENT CARE PER NURSING PROTOCOL Performed By: #### L 501.080 ####[facility] [address] [place], [address] FINGERSTICK GLU 238 mg/dL High 74-106 [facility] Comment on above: Result Comment: JEREMIAS GEMENT OF PATIENT CARE PER NURSING PROTOCOL Performed By: #### L 501.080 ####[facility] [address] [place], [address] FINGERSTICK GLU 103 mg/dL Normal 74-106 [facility] Comment on above: Result Comment: JEREMIAS GEMENT OF PATIENT CARE PER NURSING PROTOCOL Performed By: #### L 501.080 ####[facility] [address] [place], [address] FINGERSTICK GLU 64 mg/dL Low 74-106 [facility] Comment on above: Result Comment: JEREMIAS GEMENT OF PATIENT CARE PER NURSING PROTOCOL Performed By: #### L 501.080 ####[facility] [address] [place], [address] FINGERSTICK GLU 177 mg/dL High 74-106 [facility] Comment on above: Result Comment: JEREMIAS GEMENT OF PATIENT CARE PER NURSING PROTOCOL Performed By: #### L 501.080 ####[facility] [address] [place], [address] FINGERSTICK GLU 106 mg/dL Normal 74-106 [facility] Comment on above: Result Comment: JEREMIAS GEMENT OF PATIENT CARE PER NURSING PROTOCOL Performed By: #### L 501.080 ####[facility] [address] [place], [address] CBC W/Diff, Automatedon 05-0 1-2025 Absolute Lymph 1.25 X10 3/uL Normal 0.83-4.51 [facility] Comment on above: Performed By: #### L 100.0100, L500.2500 ####[facility] [address] [place], [address] Absolute Neut 3.5 X10 3/uL Normal 2.0-7.7 [facility] Comment on above: Performed By: #### L 100.0100, L500.2500 ####[facility] [address] [place], [address] Basophils/100 WBC (Bld) 1.4 % High 0-1 [facility] Comment on above: Performed By: #### L 100.0100, L500.2500 ####[facility] [address] [place], [address] Eosinophils/100 WBC (Bld) 3.5 % Normal 0-5 [facility] Comment on above: Performed By: #### L 100.0100, L500.2500 ####[facility] [address] [place], [address] Erythrocyte distribution width (RBC) [Ratio] 16.2 % High 11.6-14.6 [facility] Comment on above: Performed By: #### L 100.0100, L500.2500 ####[facility] [address] [place], [address] Hematocrit (Bld) [Volume fraction] 24.1 % Low 37-47 [facility] Comment on above: Performed By: #### L 100.0100, L500.2500 ####[facility] [address] [place], [address] Hemoglobin (Bld) [Mass/Vol] 7.6 g/dL Low 12.0-15.0 [facility] Comment on above: Performed By: #### L 100.0100, L500.2500 ####[facility] [address] [place], [address] IG% 0.400 Normal 0.0-0.9 [facility] Comment on above: Result Comment: IG% - Immature Granulocytes (promyelocytes, myelocytes andmetamyelocytes) > 1% indicates that a LEFT SHIFT is Present. Performed By: #### L 100.0100, L500.2500 ####[facility] [address] [place], [address] Lymphocytes/100 WBC (Bld) 22.0 % Normal 19-41 [facility] Comment on above: Performed By: #### L 100.0100, L500.2500 ####[facility] [address] [place], [address] MCH (RBC) [Entitic mass] 29.1 pg Normal 27.0-32.0 [facility] Comment on above: Performed By: #### L 100.0100, L500.2500 ####[facility] [address] [place], [address] MCHC (RBC) [Mass/Vol] 31.5 g/dL Low 32-36 [facility] Comment on above: Performed By: #### L 100.0100, L500.2500 ####[facility] [address] [place], [address] MCV (RBC) [Entitic vol] 92.3 fL Normal 81-99 [facility] Comment on above: Performed By: #### L 100.0100, L500.2500 ####[facility] [address] [place], [address] Monocytes/100 WBC (Bld) 11.1 % High 0-10 [facility] Comment on above: Performed By: #### L 100.0100, L500.2500 ####[facility] [address] [place], [address] Neutrophils/100 WBC (Bld) 61.6 % Normal 47-70 [facility] Comment on above: Performed By: #### L 100.0100, L500.2500 ####[facility] [address] [place], [address] Nucleated RBC (Bld) [#/Vol] 0 10*3/uL Normal 0-5 [facility] Comment on above: Performed By: #### L 100.0100, L500.2500 ####[facility] [address] [place], [address] Platelet mean volume (Bld) [Entitic vol] 11.7 fL Normal 6.2-12.0 [facility] Comment on above: Performed By: #### L 100.0100, L500.2500 ####[facility] [address] [place], [address] Platelets (Bld) [#/Vol] 159 10*3/uL Normal 150-450 [facility] Comment on above: Performed By: #### L 100.0100, L500.2500 ####[facility] [address] [place], [address] RBC (Bld) [#/Vol] 2.61 10*6/uL Low 4.2-5.4 [facility] Comment on above: Performed By: #### L 100.0100, L500.2500 ####[facility] [address] [place], [address] RDW SD 52.6 fl High 35.1-43.9 [facility] Comment on above: Performed By: #### L 100.0100, L500.2500 ####[facility] [address] [place], [address] WBC (Bld) [#/Vol] 5.7 10*3/uL Normal 4.4-11.0 [facility] Comment on above: Performed By: #### L 100.0100, L500.2500 ####[facility] [address] [place], [address] CTA Abd w/Runoff W/WO Contra ston 03-19-2025 CTA Abd w/Runoff W/WO Contrast Normal [facility] Carbon dioxide, total [Moles /volume] in Central venous bloodOrdered By: Phong Solomon on 03-19-2025 CO2 [Moles/Vol] 22.1 mmol/L 21.0-32.0 [facility] Chloride assayOrdered By: Addy Solomon on 03-19-2025 Chloride [Moles/Vol] 112 mmol/L High 98-108 [facility] Eosinophil percentageOrdered By: Phong Solomon on 03-19-2025 Eosinophils/100 WBC (Bld) 3.5 % 0-5 [facility] Erythrocyte distribution wid th ratioOrdered By: Phong Solomon on 03-19-2025 Erythrocyte distribution width (RBC) [Ratio] 16.2 % High 11.6-14.6 [facility] Erythrocyte distribution wid th standard deviationOrdered By: Phong Solomon on 03-19-2025 Erythrocyte distribution width (RBC) [Ratio] 52.6 fl High 35.1-43.9 [facility] Glomerular filtration rate ( GFR) estimation/1.73 sq m using serum, plasma, or whole bOrdered By: Phong Solomon on 03-19-2025 GFR/1.73 sq M.predicted among non-blacks MDRD (S/P/Bld) [Vol rate/Area] 37 mL/min/{1.73_m2} Low >60 [facility] Comment on above: mL/min/1.73m2 CKD-EP I Creatinine Equation (2020) Hematocrit Auto (Bld) [Volum e fraction]Ordered By: Phong Solomon on 03-19-2025 Hematocrit (Bld) [Volume fraction] 24.1 % Low 37-47 [facility] Hemoglobin measurementOrdere d By: Phong Solomon 03-19-2025 Hemoglobin (Bld) [Mass/Vol] 7.6 g/dL Low 12.0-15.0 [facility] Immature granulocytes/100 WB C Auto (Bld)Ordered By: Phong Solomon 03-19-2025 Immature granulocytes/100 WBC (Bld) 0.400 % 0.0-0.9 [facility] Comment on above: IG% - Immature Granu locytes (promyelocytes, myelocytes and metamyelocytes) > 1% indicates that a LEFT SHIFT is Present. MCV (mean corpuscular volume ) determinationOrdered By: Phong Solomon 03-19-2025 MCV (RBC) [Entitic vol] 92.3 fL 81-99 [facility] Mean corpuscular hemoglobin (MCH) determinationOrdered By: Phong Solomon 03-19-2025 MCH (RBC) [Entitic mass] 29.1 pg 27.0-32.0 [facility] Mean corpuscular hemoglobin concentration (MCHC) determinationOrdered By: Phong Solomon 03-19-2025 MCHC (RBC) [Mass/Vol] 31.5 g/dL Low 32-36 [facility] Mean platelet volume determi nationOrdered By: Phong Solomon 03-19-2025 Platelet mean volume (Bld) [Entitic vol] 11.7 fL 6.2-12.0 [facility] Monocyte percentageOrdered B y: Phong Solomon on 03-19-2025 Monocytes/100 WBC (Bld) 11.1 % High 0-10 [facility] Neutrophil percentageOrdered By: Phong Solomon on 03-19-2025 Neutrophils/100 WBC (Bld) 61.6 % 47-70 [facility] Nucleated red blood cell per centageOrdered By: Phong Solomon on 03-19-2025 Nucleated RBC/100 WBC (Bld) [Ratio] 0 % 0-5 [facility] Platelet countOrdered By: Addy Solomon on 03-19-2025 Platelets (Bld) [#/Vol] 159 10*3/uL 150-450 [facility] Potassium measurement (mass/ volume)Ordered By: Phong Solomon on 03-19-2025 Potassium (Unsp spec) [Mass/Vol] 4.2 mmol/L 3.3-5.1 [facility] RBC Auto (Bld) [#/Vol]Ordere d By: Phong Solomon on 03-19-2025 RBC (Bld) [#/Vol] 2.61 10*6/uL Low 4.2-5.4 [facility] Serum creatinine measurement (mass/volume)Ordered By: Phong Solomon on 03-19-2025 Creatinine [Mass/Vol] 1.47 mg/dL High 0.70-1.20 [facility] Serum glucose measurement (m ass/volume)Ordered By: Phong Solomon on 03-19-2025 Glucose [Mass/Vol] 111 mg/dL High 70-99 [facility] Serum or plasma calcium natalia urement (mass/volume)Ordered By: Phong Solomon on 03-19-2025 Calcium [Mass/Vol] 8.6 mg/dL 7.6-11.0 [facility] Serum or plasma urea nitroge n measurement (mass/volume)Ordered By: Phong Solomon on 03-19-2025 Urea nitrogen [Mass/Vol] 33 mg/dL High 4-19 [facility] Sodium levelOrdered By: Phong Solomon on 03-19-2025 Sodium [Moles/Vol] 142 mmol/L 133-145 [facility] Stool Occult Blood iFOBon STOB Negative Normal [facility] Comment on above: Performed By: #### M 100.7900 ####[facility] [address] [place], [place], [id number] Stool gastrointestinal hemog lobin detection by immunologic methodOrdered By: Phong Solomon on 03-19-2025 Lower GI hemoglobin IA Ql (Stl) [facility] Type AND Screenon 03-19-2025 Ab SCREEN GEL Negative Normal [facility] Comment on above: Order Comment: CMV N EG? NNumber of units to transfuse: 2Reason for Ordering Blood: AcuteAre the blood/blood products to be transfused? YIs the patient having/had surgery? Jordan Fitzgerald Performed By: #### B MILI BTS ####[facility] [address] [place], [address] ABO and Rh group Nom (Bld) Blood group A Rh(D) positive Normal [facility] Comment on above: Order Comment: CMV N EG? NNumber of units to transfuse: 2Reason for Ordering Blood: AcuteAre the blood/blood products to be transfused? YIs the patient having/had surgery? Jordan Fitzgerald Performed By: #### B MILI BTS ####[facility] [address] [place], [place], [address] White blood cell (WBC) count Ordered By: Phong Solomon on 03-19-2025 WBC (Bld) [#/Vol] 5.7 10*3/uL 4.4-11.0 [facility] Bedside Glucoseon 03-18-2025 FINGERSTICK GLU 158 mg/dL High 74-106 [facility] Comment on above: Result Comment: JEREMIAS GEMENT OF PATIENT CARE PER NURSING PROTOCOL Performed By: #### L 501.080 ####[facility] [address] [place], [place], [address] FINGERSTICK GLU 205 mg/dL High 74-106 [facility] Comment on above: Result Comment: JEREMIAS GEMENT OF PATIENT CARE PER NURSING PROTOCOL Performed By: #### L 501.080 ####[facility] [address] [place], [address] FINGERSTICK GLU 235 mg/dL High 74-106 [facility] Comment on above: Result Comment: JEREMIAS GEMENT OF PATIENT CARE PER NURSING PROTOCOL Performed By: #### L 501.080 ####[facility] [address] [place], [address] FINGERSTICK GLU 89 mg/dL Normal 74-106 [facility] Comment on above: Result Comment: JEREMIAS GEMENT OF PATIENT CARE PER NURSING PROTOCOL Performed By: #### L 501.080 ####[facility] [address] [place], [address] Bedside Glucoseon 03-17-2025 FINGERSTICK GLU 129 mg/dL High 74-106 [facility] Comment on above: Result Comment: JEREMIAS GEMENT OF PATIENT CARE PER NURSING PROTOCOL Performed By: #### L 501.080 ####[facility] [address] [place], [address] FINGERSTICK GLU 101 mg/dL Normal 74-106 [facility] Comment on above: Result Comment: JEREMIAS GEMENT OF PATIENT CARE PER NURSING PROTOCOL Performed By: #### L 501.080 ####[facility] [address] [place], [address] FINGERSTICK GLU 120 mg/dL High 74-106 [facility] Comment on above: Result Comment: JEREMIAS GEMENT OF PATIENT CARE PER NURSING PROTOCOL Performed By: #### L 501.080 ####[facility] [address] [place], [address] Bedside Glucoseon 03-16-2025 FINGERSTICK GLU 154 mg/dL High 74-106 [facility] Comment on above: Result Comment: JEREMIAS GEMENT OF PATIENT CARE PER NURSING PROTOCOL Performed By: #### L 501.080 ####[facility] [address] [place], [address] FINGERSTICK GLU 127 mg/dL High 74-106 [facility] Comment on above: Result Comment: JEREMIAS GEMENT OF PATIENT CARE PER NURSING PROTOCOL Performed By: #### L 501.080 ####[facility] [address] [place], [address] FINGERSTICK GLU 162 mg/dL High 74-106 [facility] Comment on above: Result Comment: JEREMIAS GEMENT OF PATIENT CARE PER NURSING PROTOCOL Performed By: #### L 501.080 ####[facility] [address] [place], [address] FINGERSTICK GLU 120 mg/dL High [address] [place] [address] Comment on above: Result Comment: JEREMIAS GEMENT OF PATIENT CARE PER NURSING PROTOCOL Performed By: #### L 501.080 ####[facility] [address] [place], [address] Bedside Glucoseon 03-15-2025 FINGERSTICK GLU 247 mg/dL High -[address] [place] [address] Comment on above: Result Comment: JEREMIAS GEMENT OF PATIENT CARE PER NURSING PROTOCOL Performed By: #### L 501.080 ####[facility] [address] [place], [address] FINGERSTICK GLU 256 mg/dL High [address] [place] [address] Comment on above: Result Comment: JEREMIAS GEMENT OF PATIENT CARE PER NURSING PROTOCOL Performed By: #### L 501.080 ####[facility] [address] [place], [address] FINGERSTICK GLU 286 mg/dL High -[address] [place] [address] Comment on above: Result Comment: JEREMIAS GEMENT OF PATIENT CARE PER NURSING PROTOCOL Performed By: #### L 501.080 ####[facility] [address] [place], [address] FINGERSTICK GLU 161 mg/dL High [facility]106 [facility] Comment on above: Result Comment: JEREMIAS GEMENT OF PATIENT CARE PER NURSING PROTOCOL Performed By: #### L 501.080 ####[facility] [address] [place], [address] Bedside Glucoseon 03-14-2025 FINGERSTICK GLU 228 mg/dL High [address] [place] [address] Comment on above: Result Comment: JEREMIAS GEMENT OF PATIENT CARE PER NURSING PROTOCOL Performed By: #### L 501.080 ####[facility] [address] [place], [address] FINGERSTICK GLU 201 mg/dL High -106 [facility] Comment on above: Result Comment: JEREMIAS GEMENT OF PATIENT CARE PER NURSING PROTOCOL Performed By: #### L 501.080 ####[facility] [address] [place], [address] FINGERSTICK GLU 204 mg/dL High -106 [facility] Comment on above: Result Comment: JEREMIAS GEMENT OF PATIENT CARE PER NURSING PROTOCOL Performed By: #### L 501.080 ####[facility] [address] [place], [address] FINGERSTICK GLU 163 mg/dL High [address] [place] [address] Comment on above: Result Comment: JEREMIAS GEMENT OF PATIENT CARE PER NURSING PROTOCOL Performed By: #### L 501.080 ####[facility] [address] [place], [address] Bedside Glucoseon 03-13-2025 FINGERSTICK GLU 258 mg/dL High -[address] [place] [address] Comment on above: Result Comment: JEREMIAS GEMENT OF PATIENT CARE PER NURSING PROTOCOL Performed By: #### L 501.080 ####[facility] [address] [place], [address] FINGERSTICK GLU 286 mg/dL High 74-106 [facility] Comment on above: Result Comment: JEREMIAS GEMENT OF PATIENT CARE PER NURSING PROTOCOL Performed By: #### L 501.080 ####[facility] [address] [place], [address] FINGERSTICK GLU 217 mg/dL High 74-106 [facility] Comment on above: Result Comment: JEREMIAS GEMENT OF PATIENT CARE PER NURSING PROTOCOL Performed By: #### L 501.080 ####[facility] [address] [place], [address] FINGERSTICK GLU 132 mg/dL High 74-106 [facility] Comment on above: Result Comment: JEREMIAS GEMENT OF PATIENT CARE PER NURSING PROTOCOL Performed By: #### L 501.080 ####[facility] [address] [place], [place], [phone] Calculated very low density lipoprotein (VLDL) cholesterol measurementOrdered By: Phong Solomon on 03-13-2025 Calculated very low density lipoprotein (VLDL) cholesterol measurement 25 mg/dL 5-40 [facility] Consultation - Surgicalon Consultation - Surgical Normal [facility] LDL calc ser/plasOrdered By: Phong Solomon on 03-13-2025 Cholesterol in LDL [Mass/Vol] 39 mg/dL [facility] Comment on above: Zluirbopnk=057-079 m g/dL & Higher Surb=583 mg/dL or greater Lipid Profileon 03-13-2025 CHOL:HDL 2.85 Normal [facility] Comment on above: Performed By: #### L 500.4100 ####[facility] [address] [place], [place], [address] Cholesterol [Mass/Vol] 99 mg/dL Normal <=200 [facility] Comment on above: Result Comment: Chol esterol level, Desirable <200 mg/dLBorderline high cholesterol 200-239 mg/dLHigh cholesterol >=240 mg/dLRecommendations of the NCEP Adult Treatment Panel for thefollowing risk-cutoff thresholds for the [place] Americanpulation. Performed By: #### L 500.4100 ####[facility] [address] [place], [place], [address] Cholesterol in HDL [Mass/Vol] 35 mg/dL Low [facility] Comment on above: Result Comment: [place] onal Cholesterol Education Program (NCEP) guidelines:<40 mg/dL: Low HDL-cholesterol (major risk factor for CHD)>= 60 mg/dL: High HDL-cholesterol (negative risk factor forCHD)HDL-cholesterol is affected by a number of factors, e.g.smoking, exercise, hormones, sex and age. Performed By: #### L 500.4100 ####[facility] [address] [place], [place], [phone] Cholesterol in LDL [Mass/Vol] 39 mg/dL Normal [facility] Comment on above: Result Comment: Bord rmmpvp=653-822 mg/dL Higher Jcqi=757 mg/dL or greater Performed By: #### L 500.4100 ####[facility] [address] [place], [place], [phone] Cholesterol in VLDL [Mass/Vol] 25 mg/dL Normal 5-40 [facility] Comment on above: Performed By: #### L 500.4100 ####[facility] [address] [place], [place], [id number]([phone]) Triglyceride [Mass/Vol] 126 mg/dL Normal [facility] Comment on above: Result Comment: The drugs N-Acetylcysteine and Metamizole may falselydepress this assay.Normal range: <150 mg/dLBorderline High: 150-199 mg/dLHigh: 200-499 mg/dLVery High: >500 mg/dL Performed By: #### L 500.4100 ####[facility] [address] [place], [place], [id number] Screening total cholesterol/ high density lipoprotein (HDL) cholesterol ratioOrdered By: Phong Solomon on 03-13-2025 Cholesterol.total/Chol esterol in HDL [Mass ratio] 2.85 {ratio} [facility] Serum or plasma cholesterol in HDL measurement (mass/volume)Ordered By: Phong Solomon on 03-13-2025 Cholesterol in HDL [Mass/Vol] 35 mg/dL Low >40 [facility] Comment on above: National Cholesterol Education Program (NCEP) guidelines:<40 mg/dL: Low HDL-cholesterol (major risk factor for CHD)>= 60 mg/dL: High HDL-cholesterol (negative risk factor for CHD)HDL-cholesterol is affected by a number of factors, e.g. smoking, exercise, hormones, sex and age. Serum or plasma cholesterol measurement (mass/volume)Ordered By: Phong Solomon on 03-13-2025 Cholesterol [Mass/Vol] 99 mg/dL <201 [facility] Comment on above: Cholesterol level, D esirable <200 mg/dLBorderline high cholesterol 200-239 mg/dLHigh cholesterol >=240 mg/dLRecommendations of the NCEP Adult Treatment Panel for the following risk-cutoff thresholds for the [place] population. Triglycerides measurementOrd ered By: Phong Solomon on 03-13-2025 Triglyceride [Mass/Vol] 126 mg/dL <199 [facility] Comment on above: The drugs N-Acetylcy steine and Metamizole may falsely depress this assay. Normal range: <150 mg/dLBorderline High: 150-199 mg/dLHigh: 200-499 mg/dLVery High: >500 mg/dL Basic Metabolic Profile (BMP )on 03-12-2025 BUN/CRE 33.8 RATIO High 10-20 [facility] Comment on above: Performed By: #### L 100.0100, L500.2500 ####[facility] [address] [place], [address] Calcium [Mass/Vol] 8.9 mg/dL Normal 7.6-11.0 [facility] Comment on above: Performed By: #### L 100.0100, L500.2500 ####[facility] [address] [place], [address] Chloride [Moles/Vol] 110 mmol/L High 98-108 [facility] Comment on above: Performed By: #### L 100.0100, L500.2500 ####[facility] [address] [place], [address] CO2 [Moles/Vol] 19.8 mmol/L Low 21.0-32.0 [facility] Comment on above: Performed By: #### L 100.0100, L500.2500 ####[facility] [address] [place], [address] Creatinine [Mass/Vol] 1.48 mg/dL High 0.70-1.20 [facility] Comment on above: Performed By: #### L 100.0100, L500.2500 ####[facility] [address] [place], [address] ECRCL 34.76 ml/min Low 50-250 [facility] Comment on above: Performed By: #### L 100.0100, L500.2500 ####[facility] [address] [place], [address] GAP 12 Normal 5-15 [facility] Comment on above: Performed By: #### L 100.0100, L500.2500 ####[facility] [address] [place], [address] GFR/1.73 sq M.predicted among non-blacks MDRD (S/P/Bld) [Vol rate/Area] 37 mL/min/{1.73_m2} Low >60 [facility] Comment on above: Result Comment: mL/m in/1.73m2 CKD-EPI Creatinine Equation (2020) Performed By: #### L 100.0100, L500.2500 ####[facility] [address] [place], [address] Glucose [Mass/Vol] 137 mg/dL High 70-99 [facility] Comment on above: Performed By: #### L 100.0100, L500.2500 ####[facility] [address] [place], [address] Potassium [Moles/Vol] 4.6 mmol/L Normal 3.3-5.1 [facility] Comment on above: Performed By: #### L 100.0100, L500.2500 ####[facility] [address] [place], [address] Sodium [Moles/Vol] 141 mmol/L Normal 133-145 [facility] Comment on above: Performed By: #### L 100.0100, L500.2500 ####[facility] [address] [place], [address] Urea nitrogen [Mass/Vol] 50 mg/dL High 4-19 [facility] Comment on above: Performed By: #### L 100.0100, L500.2500 ####[facility] [address] [place], [address] BUN Normal 4-19 [facility] Comment on above: Result Comment: Canc elled via OM: Order cancelled - Patient discharged Performed By: #### L 100.0100, L500.2500 ####[facility] [address] [place], [address] BUN/CRE Normal 10-20 [facility] Comment on above: Result Comment: Canc elled via OM: Order cancelled - Patient discharged Performed By: #### L 100.0100, L500.2500 ####[facility] [address] [place], [address] Calcium Normal 7.6-11.0 [facility] Comment on above: Result Comment: Canc elled via OM: Order cancelled - Patient discharged Performed By: #### L 100.0100, L500.2500 ####[facility] [address] [place], [address] CL Normal 98-108 [facility] Comment on above: Result Comment: Canc elled via OM: Order cancelled - Patient discharged Performed By: #### L 100.0100, L500.2500 ####[facility] [address] [place], [address] CO2 Normal 21.0-32.0 [facility] Comment on above: Result Comment: Canc elled via OM: Order cancelled - Patient discharged Performed By: #### L 100.0100, L500.2500 ####[facility] [address] [place], [address] CREAT,SERUM Normal 0.70-1.20 [facility] Comment on above: Result Comment: Canc elled via OM: Order cancelled - Patient discharged Performed By: #### L 100.0100, L500.2500 ####[facility] [address] [place], [address] eGFR Normal >60 [facility] Comment on above: Result Comment: Canc elled via OM: Order cancelled - Patient discharged Performed By: #### L 100.0100, L500.2500 ####[facility] [address] [place], [address] GAP Normal 5-15 [facility] Comment on above: Result Comment: Canc elled via OM: Order cancelled - Patient discharged Performed By: #### L 100.0100, L500.2500 ####[facility] [address] [place], [address] GLU Normal 70-99 [facility] Comment on above: Result Comment: Canc elled via OM: Order cancelled - Patient discharged Performed By: #### L 100.0100, L500.2500 ####[facility] [address] [place], [address] Potassium Normal 3.3-5.1 [facility] Comment on above: Result Comment: Canc elled via OM: Order cancelled - Patient discharged Performed By: #### L 100.0100, L500.2500 ####[facility] [address] [place], [address] Basic Metabolic Profile (BMP) Normal 133-145 [facility] Comment on above: Result Comment: Canc elled via OM: Order cancelled - Patient discharged Performed By: #### L 100.0100, L500.2500 ####[facility] [address] [place], [address] Bedside Glucoseon 03-12-2025 FINGERSTICK GLU 220 mg/dL High 74-106 [facility] Comment on above: Result Comment: JEREMIAS GEMENT OF PATIENT CARE PER NURSING PROTOCOL Performed By: #### L 501.080 ####[facility] [address] [place], [address] FINGERSTICK GLU 276 mg/dL High 74-106 [facility] Comment on above: Result Comment: JEREMIAS GEMENT OF PATIENT CARE PER NURSING PROTOCOL Performed By: #### L 501.080 ####[facility] [address] [place], [address] FINGERSTICK GLU 315 mg/dL High 74-106 [facility] Comment on above: Result Comment: JEREMIAS GEMENT OF PATIENT CARE PER NURSING PROTOCOL Performed By: #### L 501.080 ####[facility] [address] [place], [address] FINGERSTICK GLU 129 mg/dL High -106 [facility] Comment on above: Result Comment: JEREMIAS GEMENT OF PATIENT CARE PER NURSING PROTOCOL Performed By: #### L 501.080 ####[facility] [address] [place], [address] CBC W/Diff, Automatedon - Absolute Lymph 1.65 X10 3/uL Normal 0.83-4.51 [facility] Comment on above: Performed By: #### L 100.0100, L500.2500 ####[facility] [address] [place], [address] Absolute Neut 6.7 X10 3/uL Normal 2.0-7.7 [facility] Comment on above: Performed By: #### L 100.0100, L500.2500 ####[facility] [address] [place], [address] Basophils/100 WBC (Bld) 0.7 % Normal 0-1 [facility] Comment on above: Performed By: #### L 100.0100, L500.2500 ####[facility] [address] [place], [address] Eosinophils/100 WBC (Bld) 2.9 % Normal 0-5 [facility] Comment on above: Performed By: #### L 100.0100, L500.2500 ####[facility] [address] [place], [address] Erythrocyte distribution width (RBC) [Ratio] 15.8 % High 11.6-14.6 [facility] Comment on above: Performed By: #### L 100.0100, L500.2500 ####[facility] [address] [place], [address] Hematocrit (Bld) [Volume fraction] 29.0 % Low 37-47 [facility] Comment on above: Performed By: #### L 100.0100, L500.2500 ####[facility] [address] [place], [address] Hemoglobin (Bld) [Mass/Vol] 9.0 g/dL Low 12.0-15.0 [facility] Comment on above: Performed By: #### L 100.0100, L500.2500 ####[facility] [address] [place], [address] IG% 1.000 High 0.0-0.9 [facility] Comment on above: Result Comment: IG% - Immature Granulocytes (promyelocytes, myelocytes andmetamyelocytes) > 1% indicates that a LEFT SHIFT is Present. Performed By: #### L 100.0100, L500.2500 ####[facility] [address] [place], [address] Lymphocytes/100 WBC (Bld) 16.9 % Low 19-41 [facility] Comment on above: Performed By: #### L 100.0100, L500.2500 ####[facility] [address] [place], [address] MCH (RBC) [Entitic mass] 28.7 pg Normal 27.0-32.0 [facility] Comment on above: Performed By: #### L 100.0100, L500.2500 ####[facility] [address] [place], [address] MCHC (RBC) [Mass/Vol] 31.0 g/dL Low 32-36 [facility] Comment on above: Performed By: #### L 100.0100, L500.2500 ####[facility] [address] [place], [address] MCV (RBC) [Entitic vol] 92.4 fL Normal 81-99 [facility] Comment on above: Performed By: #### L 100.0100, L500.2500 ####[facility] [address] [place], [address] Monocytes/100 WBC (Bld) 10.2 % High 0-10 [facility] Comment on above: Performed By: #### L 100.0100, L500.2500 ####[facility] [address] [place], [address] Neutrophils/100 WBC (Bld) 68.3 % Normal 47-70 [facility] Comment on above: Performed By: #### L 100.0100, L500.2500 ####[facility] [address] [place], [address] Nucleated RBC (Bld) [#/Vol] 0 10*3/uL Normal 0-5 [facility] Comment on above: Performed By: #### L 100.0100, L500.2500 ####[facility] [address] [place], [address] Platelet mean volume (Bld) [Entitic vol] 11.8 fL Normal 6.2-12.0 [facility] Comment on above: Performed By: #### L 100.0100, L500.2500 ####[facility] [address] [place], [address] Platelets (Bld) [#/Vol] 175 10*3/uL Normal 150-450 [facility] Comment on above: Performed By: #### L 100.0100, L500.2500 ####[facility] [address] [place], [address] RBC (Bld) [#/Vol] 3.14 10*6/uL Low 4.2-5.4 [facility] Comment on above: Performed By: #### L 100.0100, L500.2500 ####[facility] [address] [place], [address] RDW SD 51.3 fl High 35.1-43.9 [facility] Comment on above: Performed By: #### L 100.0100, L500.2500 ####[facility] [address] [place], [address] WBC (Bld) [#/Vol] 9.8 10*3/uL Normal 4.4-11.0 [facility] Comment on above: Performed By: #### L 100.0100, L500.2500 ####[facility] [address] [place], [address] Absolute Neut Normal 2.0-7.7 [facility] Comment on above: Result Comment: Canc elled via OM: Order cancelled - Patient discharged Performed By: #### L 100.0100, L500.2500 ####[facility] [address] [place], [address] HCT Normal 37-47 [facility] Comment on above: Result Comment: Canc elled via OM: Order cancelled - Patient discharged Performed By: #### L 100.0100, L500.2500 ####[facility] [address] [place], [address] HGB Normal 12.0-15.0 [facility] Comment on above: Result Comment: Canc elled via OM: Order cancelled - Patient discharged Performed By: #### L 100.0100, L500.2500 ####[facility] [address] [place], [address] MCH Normal 27.0-32.0 [facility] Comment on above: Result Comment: Canc elled via OM: Order cancelled - Patient discharged Performed By: #### L 100.0100, L500.2500 ####[facility] [address] [place], [address] MCHC Normal 32-36 [facility] Comment on above: Result Comment: Canc elled via OM: Order cancelled - Patient discharged Performed By: #### L 100.0100, L500.2500 ####[facility] [address] [place], [address] MCV Normal 81-99 [facility] Comment on above: Result Comment: Canc elled via OM: Order cancelled - Patient discharged Performed By: #### L 100.0100, L500.2500 ####[facility] [address] [place], [address] NEUT% Normal 47-70 [facility] Comment on above: Result Comment: Canc elled via OM: Order cancelled - Patient discharged Performed By: #### L 100.0100, L500.2500 ####[facility] [address] [place], [address] PLT Normal 150-450 [facility] Comment on above: Result Comment: Canc elled via OM: Order cancelled - Patient discharged Performed By: #### L 100.0100, L500.2500 ####[facility] [address] [place], [address] RBC Normal 4.2-5.4 [facility] Comment on above: Result Comment: Canc elled via OM: Order cancelled - Patient discharged Performed By: #### L 100.0100, L500.2500 ####[facility] [address] [place], [address] RDW CV Normal 11.6-14.6 [facility] Comment on above: Result Comment: Canc elled via OM: Order cancelled - Patient discharged Performed By: #### L 100.0100, L500.2500 ####[facility] [address] [place], [address] RDW SD Normal 35.1-43.9 [facility] Comment on above: Result Comment: Canc elled via OM: Order cancelled - Patient discharged Performed By: #### L 100.0100, L500.2500 ####[facility] [address] [place], [address] WBC Normal 4.4-11.0 [facility] Comment on above: Result Comment: Canc elled via OM: Order cancelled - Patient discharged Performed By: #### L 100.0100, L500.2500 ####[facility] [address] [place], [address] Absolute lymphocyte countOrd ered By: Broderick eDmpsey on 03-11-2025 Lymphocytes Auto (Unsp spec) [#/Vol] 1.37 10*3/uL 0.83-4.51 [facility] Absolute neutrophil countOrd ered By: Broderick Dempsey on 03-11-2025 Neutrophils (Bld) [#/Vol] 5.4 10*3/uL 2.0-7.7 [facility] Anion gap in Serum or Plasma Ordered By: Broderick Dempsey on 03-11-2025 Anion gap [Moles/Vol] 10 mmol/L 5-15 [facility] Automated lymphocyte count a s percentage of total leukocytesOrdered By: Broderick Dempsey on 03-11-2025 Lymphocytes/100 WBC Auto (Unsp spec) 17.0 % Low 19-41 [facility] BUN/creatinine ratioOrdered By: Broderick Dempsey on 03-11-2025 Urea nitrogen/Creatinine [Mass ratio] 37.8 mg/mg High 10-20 [facility] Basic Metabolic Profile (BMP )on 03-11-2025 BUN/CRE 37.8 RATIO High 10-20 [facility] Comment on above: Performed By: #### L 500.2500, L100.0100 ####[facility] [address] [place], [address] Calcium [Mass/Vol] 8.4 mg/dL Normal 7.6-11.0 [facility] Comment on above: Performed By: #### L 500.2500, L100.0100 ####[facility] [address] [place], [address] Chloride [Moles/Vol] 111 mmol/L High 98-108 [facility] Comment on above: Performed By: #### L 500.2500, L100.0100 ####[facility] [address] [place], [address] CO2 [Moles/Vol] 19.8 mmol/L Low 21.0-32.0 [facility] Comment on above: Performed By: #### L 500.2500, L100.0100 ####[facility] [address] [place], [address] Creatinine [Mass/Vol] 1.41 mg/dL High 0.70-1.20 [facility] Comment on above: Performed By: #### L 500.2500, L100.0100 ####[facility] [address] [place], [address] ECRCL 36.83 ml/min Low 50-250 [facility] Comment on above: Performed By: #### L 500.2500, L100.0100 ####[facility] [address] [place], [address] GAP 10 Normal 5-15 [facility] Comment on above: Performed By: #### L 500.2500, L100.0100 ####[facility] [address] [place], [address] GFR/1.73 sq M.predicted among non-blacks MDRD (S/P/Bld) [Vol rate/Area] 39 mL/min/{1.73_m2} Low >60 [facility] Comment on above: Result Comment: mL/m in/1.73m2 CKD-EPI Creatinine Equation (2020) Performed By: #### L 500.2500, L100.0100 ####[facility] [address] [place], [address] Glucose [Mass/Vol] 91 mg/dL Normal 70-99 [facility] Comment on above: Performed By: #### L 500.2500, L100.0100 ####[facility] [address] [place], [address] Potassium [Moles/Vol] 4.2 mmol/L Normal 3.3-5.1 [facility] Comment on above: Performed By: #### L 500.2500, L100.0100 ####[facility] [address] [place], [address] Sodium [Moles/Vol] 141 mmol/L Normal 133-145 [facility] Comment on above: Performed By: #### L 500.2500, L100.0100 ####[facility] [address] [place], [address] Urea nitrogen [Mass/Vol] 53 mg/dL High 4-19 [facility] Comment on above: Performed By: #### L 500.2500, L100.0100 ####[facility] [address] [place], [address] Basophil percentageOrdered B y: Broderick Dempsey on 03-11-2025 Basophils/100 WBC (Bld) 0.7 % 0-1 [facility] Bedside Glucoseon 03-11-2025 FINGERSTICK GLU 204 mg/dL High 74-106 [facility] Comment on above: Result Comment: JEREMIAS GEMENT OF PATIENT CARE PER NURSING PROTOCOL Performed By: #### L 501.080 ####[facility] [address] [place], [address] FINGERSTICK GLU 164 mg/dL High 74-106 [facility] Comment on above: Result Comment: JEREMIAS GEMENT OF PATIENT CARE PER NURSING PROTOCOL Performed By: #### L 501.080 ####[facility] [address] [place], [address] FINGERSTICK GLU 282 mg/dL High 74-106 [facility] Comment on above: Result Comment: JEREMIAS GEMENT OF PATIENT CARE PER NURSING PROTOCOL Performed By: #### L 501.080 ####[facility] [address] [place], [address] FINGERSTICK GLU 82 mg/dL Normal 74-106 [facility] Comment on above: Result Comment: JEREMIAS GEMENT OF PATIENT CARE PER NURSING PROTOCOL Performed By: #### L 501.080 ####[facility] [address] [place], [address] FINGERSTICK GLU 142 mg/dL High 74-106 [facility] Comment on above: Result Comment: JEREMIAS GEMENT OF PATIENT CARE PER NURSING PROTOCOL Performed By: #### L 501.080 ####[facility] [address] [place], [address] CBC W/Diff, Automatedon 02-18 Absolute Lymph 1.37 X10 3/uL Normal 0.83-4.51 [facility] Comment on above: Performed By: #### L 500.2500, L100.0100 ####[facility] [address] [place], [address] Absolute Neut 5.4 X10 3/uL Normal 2.0-7.7 [facility] Comment on above: Performed By: #### L 500.2500, L100.0100 ####[facility] [address] [place], [address] Basophils/100 WBC (Bld) 0.7 % Normal 0-1 [facility] Comment on above: Performed By: #### L 500.2500, L100.0100 ####[facility] [address] [place], [address] Eosinophils/100 WBC (Bld) 3.6 % Normal 0-5 [facility] Comment on above: Performed By: #### L 500.2500, L100.0100 ####[facility] [address] [place], [address] Erythrocyte distribution width (RBC) [Ratio] 15.4 % High 11.6-14.6 [facility] Comment on above: Performed By: #### L 500.2500, L100.0100 ####[facility] [address] [place], [address] Hematocrit (Bld) [Volume fraction] 25.3 % Low 37-47 [facility] Comment on above: Performed By: #### L 500.2500, L100.0100 ####[facility] [address] [place], [address] Hemoglobin (Bld) [Mass/Vol] 8.0 g/dL Low 12.0-15.0 [facility] Comment on above: Performed By: #### L 500.2500, L100.0100 ####[facility] [address] [place], [address] IG% 0.900 Normal 0.0-0.9 [facility] Comment on above: Result Comment: IG% - Immature Granulocytes (promyelocytes, myelocytes andmetamyelocytes) > 1% indicates that a LEFT SHIFT is Present. Performed By: #### L 500.2500, L100.0100 ####[facility] [address] [place], [address] Lymphocytes/100 WBC (Bld) 17.0 % Low 19-41 [facility] Comment on above: Performed By: #### L 500.2500, L100.0100 ####[facility] [address] [place], [address] MCH (RBC) [Entitic mass] 28.8 pg Normal 27.0-32.0 [facility] Comment on above: Performed By: #### L 500.2500, L100.0100 ####[facility] [address] [place], [address] MCHC (RBC) [Mass/Vol] 31.6 g/dL Low 32-36 [facility] Comment on above: Performed By: #### L 500.2500, L100.0100 ####[facility] [address] [place], [address] MCV (RBC) [Entitic vol] 91.0 fL Normal 81-99 [facility] Comment on above: Performed By: #### L 500.2500, L100.0100 ####[facility] [address] [place], [address] Monocytes/100 WBC (Bld) 10.8 % High 0-10 [facility] Comment on above: Performed By: #### L 500.2500, L100.0100 ####[facility] [address] [place], [address] Neutrophils/100 WBC (Bld) 67.0 % Normal 47-70 [facility] Comment on above: Performed By: #### L 500.2500, L100.0100 ####[facility] [address] [place], [address] Nucleated RBC (Bld) [#/Vol] 0 10*3/uL Normal 0-5 [facility] Comment on above: Performed By: #### L 500.2500, L100.0100 ####[facility] [address] [place], [address] Platelet mean volume (Bld) [Entitic vol] 11.7 fL Normal 6.2-12.0 [facility] Comment on above: Performed By: #### L 500.2500, L100.0100 ####[facility] [address] [place], [address] Platelets (Bld) [#/Vol] 150 10*3/uL Normal 150-450 [facility] Comment on above: Performed By: #### L 500.2500, L100.0100 ####[facility] [address] [place], [address] RBC (Bld) [#/Vol] 2.78 10*6/uL Low 4.2-5.4 [facility] Comment on above: Performed By: #### L 500.2500, L100.0100 ####[facility] [address] [place], [address] RDW SD 49.5 fl High 35.1-43.9 [facility] Comment on above: Performed By: #### L 500.2500, L100.0100 ####[facility] [address] [place], [address] WBC (Bld) [#/Vol] 8.1 10*3/uL Normal 4.4-11.0 [facility] Comment on above: Performed By: #### L 500.2500, L100.0100 ####[facility] [address] [place], [address] Carbon dioxide, total [Moles /volume] in Central venous bloodOrdered By: Broderick Dempsey on 03-11-2025 CO2 [Moles/Vol] 19.8 mmol/L Low 21.0-32.0 [facility] Chloride assayOrdered By: Solange Dempsey on 03-11-2025 Chloride [Moles/Vol] 111 mmol/L High 98-108 [facility] Consultation - Infectious Dx on 03-11-2025 Consultation - Infectious Dx Normal [facility] Eosinophil percentageOrdered By: Broderick Dempsey on 03-11-2025 Eosinophils/100 WBC (Bld) 3.6 % 0-5 [facility] Erythrocyte distribution wid th ratioOrdered By: Broderick Dempsey on 03-11-2025 Erythrocyte distribution width (RBC) [Ratio] 15.4 % High 11.6-14.6 [facility] Erythrocyte distribution wid th standard deviationOrdered By: Broderick Dempsey on 03-11-2025 Erythrocyte distribution width (RBC) [Ratio] 49.5 fl High 35.1-43.9 [facility] Glomerular filtration rate ( GFR) estimation/1.73 sq m using serum, plasma, or whole bOrdered By: Broderick Dempsey on 03-11-2025 GFR/1.73 sq M.predicted among non-blacks MDRD (S/P/Bld) [Vol rate/Area] 39 mL/min/{1.73_m2} Low >60 [facility] Comment on above: mL/min/1.73m2 CKD-EP I Creatinine Equation (2020) Glucose measurement at bedsi deOrdered By: Broderick Dempsey on 03-11-2025 Glucose [Mass/Vol] 164 mg/dL High 74-106 [facility] Comment on above: MANAGEMENT OF PATIEN T CARE PER NURSING PROTOCOL Hematocrit Auto (Bld) [Volum e fraction]Ordered By: Broderick Dempsey on 03-11-2025 Hematocrit (Bld) [Volume fraction] 25.3 % Low 37-47 [facility] Hemoglobin measurementOrdere d By: Broderick Dempsey on 03-11-2025 Hemoglobin (Bld) [Mass/Vol] 8.0 g/dL Low 12.0-15.0 [facility] Immature granulocytes/100 WB C Auto (Bld)Ordered By: Broderick Dempsey on 03-11-2025 Immature granulocytes/100 WBC (Bld) 0.900 % 0.0-0.9 [facility] Comment on above: IG% - Immature Granu locytes (promyelocytes, myelocytes and metamyelocytes) > 1% indicates that a LEFT SHIFT is Present. MCV (mean corpuscular volume ) determinationOrdered By: Broderick Dempsey on 03-11-2025 MCV (RBC) [Entitic vol] 91.0 fL 81-99 [facility] Mean corpuscular hemoglobin (MCH) determinationOrdered By: Broderick Dempsey on 03-11-2025 MCH (RBC) [Entitic mass] 28.8 pg 27.0-32.0 [facility] Mean corpuscular hemoglobin concentration (MCHC) determinationOrdered By: Broderick Dempsey on 03-11-2025 MCHC (RBC) [Mass/Vol] 31.6 g/dL Low 32-36 [facility] Mean platelet volume determi nationOrdered By: Broderick Dempsey on 03-11-2025 Platelet mean volume (Bld) [Entitic vol] 11.7 fL 6.2-12.0 [facility] Monocyte percentageOrdered B y: Broderick Dempsey on 03-11-2025 Monocytes/100 WBC (Bld) 10.8 % High 0-10 [facility] Neutrophil percentageOrdered By: Broderick Dempsey on 03-11-2025 Neutrophils/100 WBC (Bld) 67.0 % 47-70 [facility] Nucleated red blood cell per centageOrdered By: Broderick Dempsey on 03-11-2025 Nucleated RBC/100 WBC (Bld) [Ratio] 0 % 0-5 [facility] Platelet countOrdered By: Solange Dempsey on 03-11-2025 Platelets (Bld) [#/Vol] 150 10*3/uL 150-450 [facility] Potassium measurement (mass/ volume)Ordered By: Broderick Dempsey on 03-11-2025 Potassium (Unsp spec) [Mass/Vol] 4.2 mmol/L 3.3-5.1 [facility] RBC Auto (Bld) [#/Vol]Ordere d By: Broderick Dempsey on 03-11-2025 RBC (Bld) [#/Vol] 2.78 10*6/uL Low 4.2-5.4 [facility] Serum creatinine measurement (mass/volume)Ordered By: Broderick Dempsey on 03-11-2025 Creatinine [Mass/Vol] 1.41 mg/dL High 0.70-1.20 [facility] Serum glucose measurement (m ass/volume)Ordered By: Broderick Dempsey on 03-11-2025 Glucose [Mass/Vol] 91 mg/dL 70-99 [facility] Serum or plasma calcium natalia urement (mass/volume)Ordered By: Broderick Dempsey on 03-11-2025 Calcium [Mass/Vol] 8.4 mg/dL 7.6-11.0 [facility] Serum or plasma urea nitroge n measurement (mass/volume)Ordered By: Broderick Dempsey on 03-11-2025 Urea nitrogen [Mass/Vol] 53 mg/dL High 4-19 [facility] Sodium levelOrdered By: Tevin Dempsey on 03-11-2025 Sodium [Moles/Vol] 141 mmol/L 133-145 [facility] White blood cell (WBC) count Ordered By: Broderick Dempsey on 03-11-2025 WBC (Bld) [#/Vol] 8.1 10*3/uL 4.4-11.0 [facility] Basic Metabolic Profile (BMP )on 03-10-2025 BUN/CRE 44.3 RATIO High 10-20 [facility] Comment on above: Performed By: #### L 100.0100, L500.2500 ####[facility] [address] [place], [address] Calcium [Mass/Vol] 8.4 mg/dL Normal 7.6-11.0 [facility] Comment on above: Performed By: #### L 100.0100, L500.2500 ####[facility] [address] [place], [address] Chloride [Moles/Vol] 113 mmol/L High 98-108 [facility] Comment on above: Performed By: #### L 100.0100, L500.2500 ####[facility] [address] [place], [address] CO2 [Moles/Vol] 19.1 mmol/L Low 21.0-32.0 [facility] Comment on above: Performed By: #### L 100.0100, L500.2500 ####[facility] [address] [place], [address] Creatinine [Mass/Vol] 1.47 mg/dL High 0.70-1.20 [facility] Comment on above: Performed By: #### L 100.0100, L500.2500 ####[facility] [address] [place], [address] ECRCL 35.18 ml/min Low 50-250 [facility] Comment on above: Performed By: #### L 100.0100, L500.2500 ####[facility] [address] [place], [address] GAP 10 Normal 5-15 [facility] Comment on above: Performed By: #### L 100.0100, L500.2500 ####[facility] [address] [place], [address] GFR/1.73 sq M.predicted among non-blacks MDRD (S/P/Bld) [Vol rate/Area] 37 mL/min/{1.73_m2} Low >60 [facility] Comment on above: Result Comment: mL/m in/1.73m2 CKD-EPI Creatinine Equation (2020) Performed By: #### L 100.0100, L500.2500 ####[facility] [address] [place], [address] Glucose [Mass/Vol] 81 mg/dL Normal 70-99 [facility] Comment on above: Performed By: #### L 100.0100, L500.2500 ####[facility] [address] [place], [address] Potassium [Moles/Vol] 4.2 mmol/L Normal 3.3-5.1 [facility] Comment on above: Performed By: #### L 100.0100, L500.2500 ####[facility] [address] [place], [address] Sodium [Moles/Vol] 143 mmol/L Normal 133-145 [facility] Comment on above: Performed By: #### L 100.0100, L500.2500 ####[facility] [address] [place], [address] Urea nitrogen [Mass/Vol] 65 mg/dL High 4-19 [facility] Comment on above: Performed By: #### L 100.0100, L500.2500 ####[facility] [address] [place], [address] Bedside Glucoseon 03-10-2025 FINGERSTICK GLU 186 mg/dL High 74-106 [facility] Comment on above: Result Comment: JEREMIAS GEMENT OF PATIENT CARE PER NURSING PROTOCOL Performed By: #### L 501.080 ####[facility] [address] [place], [address] FINGERSTICK GLU 308 mg/dL High 74-106 [facility] Comment on above: Result Comment: JEREMIAS GEMENT OF PATIENT CARE PER NURSING PROTOCOL Performed By: #### L 501.080 ####[facility] [address] [place], [address] FINGERSTICK GLU 84 mg/dL Normal 74-106 [facility] Comment on above: Result Comment: JEREMIAS GEMENT OF PATIENT CARE PER NURSING PROTOCOL Performed By: #### L 501.080 ####[facility] [address] [place], [address] CBC W/Diff, Automatedon 04- Absolute Lymph 1.76 X10 3/uL Normal 0.83-4.51 [facility] Comment on above: Performed By: #### L 100.0100, L500.2500 ####[facility] [address] [place], [address] Absolute Neut 4.7 X10 3/uL Normal 2.0-7.7 [facility] Comment on above: Performed By: #### L 100.0100, L500.2500 ####[facility] [address] [place], [address] Basophils/100 WBC (Bld) 0.6 % Normal 0-1 [facility] Comment on above: Performed By: #### L 100.0100, L500.2500 ####[facility] [address] [place], [address] Eosinophils/100 WBC (Bld) 3.0 % Normal 0-5 [facility] Comment on above: Performed By: #### L 100.0100, L500.2500 ####[facility] [address] [place], [address] Erythrocyte distribution width (RBC) [Ratio] 15.1 % High 11.6-14.6 [facility] Comment on above: Performed By: #### L 100.0100, L500.2500 ####[facility] [address] [place], [address] Hematocrit (Bld) [Volume fraction] 25.3 % Low 37-47 [facility] Comment on above: Performed By: #### L 100.0100, L500.2500 ####[facility] [address] [place], [address] Hemoglobin (Bld) [Mass/Vol] 8.1 g/dL Low 12.0-15.0 [facility] Comment on above: Performed By: #### L 100.0100, L500.2500 ####[facility] [address] [place], [address] IG% 1.300 High 0.0-0.9 [facility] Comment on above: Result Comment: IG% - Immature Granulocytes (promyelocytes, myelocytes andmetamyelocytes) > 1% indicates that a LEFT SHIFT is Present. Performed By: #### L 100.0100, L500.2500 ####[facility] [address] [place], [address] Lymphocytes/100 WBC (Bld) 22.3 % Normal 19-41 [facility] Comment on above: Performed By: #### L 100.0100, L500.2500 ####[facility] [address] [place], [address] MCH (RBC) [Entitic mass] 28.7 pg Normal 27.0-32.0 [facility] Comment on above: Performed By: #### L 100.0100, L500.2500 ####[facility] [address] [place], [address] MCHC (RBC) [Mass/Vol] 32.0 g/dL Normal 32-36 [facility] Comment on above: Performed By: #### L 100.0100, L500.2500 ####[facility] [address] [place], [address] MCV (RBC) [Entitic vol] 89.7 fL Normal 81-99 [facility] Comment on above: Performed By: #### L 100.0100, L500.2500 ####[facility] [address] [place], [address] Monocytes/100 WBC (Bld) 12.9 % High 0-10 [facility] Comment on above: Performed By: #### L 100.0100, L500.2500 ####[facility] [address] [place], [address] Neutrophils/100 WBC (Bld) 59.9 % Normal 47-70 [facility] Comment on above: Performed By: #### L 100.0100, L500.2500 ####[facility] [address] [place], [address] Nucleated RBC (Bld) [#/Vol] 0 10*3/uL Normal 0-5 [facility] Comment on above: Performed By: #### L 100.0100, L500.2500 ####[facility] [address] [place], [address] Platelet mean volume (Bld) [Entitic vol] 11.4 fL Normal 6.2-12.0 [facility] Comment on above: Performed By: #### L 100.0100, L500.2500 ####[facility] [address] [place], [address] Platelets (Bld) [#/Vol] 156 10*3/uL Normal 150-450 [facility] Comment on above: Performed By: #### L 100.0100, L500.2500 ####[facility] [address] [place], [address] RBC (Bld) [#/Vol] 2.82 10*6/uL Low 4.2-5.4 [facility] Comment on above: Performed By: #### L 100.0100, L500.2500 ####[facility] [address] [place], [address] RDW SD 46.9 fl High 35.1-43.9 [facility] Comment on above: Performed By: #### L 100.0100, L500.2500 ####[facility] [address] [place], [address] WBC (Bld) [#/Vol] 7.9 10*3/uL Normal 4.4-11.0 [facility] Comment on above: Performed By: #### L 100.0100, L500.2500 ####[facility] [address] [place], [address] Protein+Creatinine Ratio,Uri neon 03-10-2025 PROT:CRE RATIO 226 mg/g CRE High 0-200 [facility] Comment on above: Performed By: #### L 501.0900 ####[facility] [address] [place], [address] Protein (U) [Mass/Vol] 8.5 mg/dL Normal 0.0-12.0 [facility] Comment on above: Performed By: #### L 501.0900 ####[facility] [address] [place], [address] UR CREAT 37.70 mg/dL Normal 28.00-217.0 0 [facility] Comment on above: Performed By: #### L 501.0900 ####[facility] [address] [place], [address] Basic Metabolic Profile (BMP )on 03-09-2025 BUN/CRE 51.7 RATIO High 10-20 [facility] Comment on above: Performed By: #### L 500.2500, L501.3620, L100.0100 ####[facility] [address] [place], [address] Calcium [Mass/Vol] 8.1 mg/dL Normal 7.6-11.0 [facility] Comment on above: Performed By: #### L 500.2500, L501.3620, L100.0100 ####[facility] [address] [place], [address] Chloride [Moles/Vol] 112 mmol/L High 98-108 [facility] Comment on above: Performed By: #### L 500.2500, L501.3620, L100.0100 ####[facility] [address] [place], [address] CO2 [Moles/Vol] 19.1 mmol/L Low 21.0-32.0 [facility] Comment on above: Performed By: #### L 500.2500, L501.3620, L100.0100 ####[facility] [address] [place], [address] Creatinine [Mass/Vol] 1.63 mg/dL High 0.70-1.20 [facility] Comment on above: Performed By: #### L 500.2500, L501.3620, L100.0100 ####[facility] [address] [place], [address] ECRCL 31.75 ml/min Low 50-250 [facility] Comment on above: Performed By: #### L 500.2500, L501.3620, L100.0100 ####[facility] [address] [place], [address] GAP 10 Normal 5-15 [facility] Comment on above: Performed By: #### L 500.2500, L501.3620, L100.0100 ####[facility] [address] [place], [address] GFR/1.73 sq M.predicted among non-blacks MDRD (S/P/Bld) [Vol rate/Area] 33 mL/min/{1.73_m2} Low >60 [facility] Comment on above: Result Comment: mL/m in/1.73m2 CKD-EPI Creatinine Equation (2020) Performed By: #### L 500.2500, L501.3620, L100.0100 ####[facility] [address] [place], [address] Glucose [Mass/Vol] 120 mg/dL High 70-99 [facility] Comment on above: Performed By: #### L 500.2500, L501.3620, L100.0100 ####[facility] [address] [place], [address] Potassium [Moles/Vol] 3.8 mmol/L Normal 3.3-5.1 [facility] Comment on above: Performed By: #### L 500.2500, L501.3620, L100.0100 ####[facility] [address] [place], [address] Sodium [Moles/Vol] 141 mmol/L Normal 133-145 [facility] Comment on above: Performed By: #### L 500.2500, L501.3620, L100.0100 ####[facility] [address] [place], [address] Urea nitrogen [Mass/Vol] 84 mg/dL High 4-19 [facility] Comment on above: Performed By: #### L 500.2500, L501.3620, L100.0100 ####[facility] [address] [place], [address] Bedside Glucoseon 03-09-2025 FINGERSTICK GLU 220 mg/dL High 74-106 [facility] Comment on above: Result Comment: JEREMIAS GEMENT OF PATIENT CARE PER NURSING PROTOCOL Performed By: #### L 501.080 ####[facility] [address] [place], [address] FINGERSTICK GLU 193 mg/dL High 74-106 [facility] Comment on above: Result Comment: JEREMIAS GEMENT OF PATIENT CARE PER NURSING PROTOCOL Performed By: #### L 501.080 ####[facility] [address] [place], [address] FINGERSTICK GLU 164 mg/dL High 74-106 [facility] Comment on above: Result Comment: JEREMIAS GEMENT OF PATIENT CARE PER NURSING PROTOCOL Performed By: #### L 501.080 ####[facility] [address] [place], [address] CBC W/Diff, Automatedon 04-2 Absolute Lymph 1.38 X10 3/uL Normal 0.83-4.51 [facility] Comment on above: Performed By: #### L 500.2500, L501.3620, L100.0100 ####[facility] [address] [place], [address] Absolute Neut 6.3 X10 3/uL Normal 2.0-7.7 [facility] Comment on above: Performed By: #### L 500.2500, L501.3620, L100.0100 ####[facility] [address] [place], [address] Basophils/100 WBC (Bld) 0.3 % Normal 0-1 [facility] Comment on above: Performed By: #### L 500.2500, L501.3620, L100.0100 ####[facility] [address] [place], [address] Eosinophils/100 WBC (Bld) 2.3 % Normal 0-5 [facility] Comment on above: Performed By: #### L 500.2500, L501.3620, L100.0100 ####[facility] [address] [place], [address] Erythrocyte distribution width (RBC) [Ratio] 14.7 % High 11.6-14.6 [facility] Comment on above: Performed By: #### L 500.2500, L501.3620, L100.0100 ####[facility] [address] [place], [address] Hematocrit (Bld) [Volume fraction] 23.5 % Low 37-47 [facility] Comment on above: Performed By: #### L 500.2500, L501.3620, L100.0100 ####[facility] [address] [place], [address] Hemoglobin (Bld) [Mass/Vol] 7.6 g/dL Low 12.0-15.0 [facility] Comment on above: Performed By: #### L 500.2500, L501.3620, L100.0100 ####[facility] [address] [place], [address] IG% 1.000 High 0.0-0.9 [facility] Comment on above: Result Comment: IG% - Immature Granulocytes (promyelocytes, myelocytes andmetamyelocytes) > 1% indicates that a LEFT SHIFT is Present. Performed By: #### L 500.2500, L501.3620, L100.0100 ####[facility] [address] [place], [address] Lymphocytes/100 WBC (Bld) 15.8 % Low 19-41 [facility] Comment on above: Performed By: #### L 500.2500, L501.3620, L100.0100 ####[facility] [address] [place], [address] MCH (RBC) [Entitic mass] 29.0 pg Normal 27.0-32.0 [facility] Comment on above: Performed By: #### L 500.2500, L501.3620, L100.0100 ####[facility] [address] [place], [address] MCHC (RBC) [Mass/Vol] 32.3 g/dL Normal 32-36 [facility] Comment on above: Performed By: #### L 500.2500, L501.3620, L100.0100 ####[facility] [address] [place], [address] MCV (RBC) [Entitic vol] 89.7 fL Normal 81-99 [facility] Comment on above: Performed By: #### L 500.2500, L501.3620, L100.0100 ####[facility] [address] [place], [address] Monocytes/100 WBC (Bld) 9.0 % Normal 0-10 [facility] Comment on above: Performed By: #### L 500.2500, L501.3620, L100.0100 ####[facility] [address] [place], [address] Neutrophils/100 WBC (Bld) 71.6 % High 47-70 [facility] Comment on above: Performed By: #### L 500.2500, L501.3620, L100.0100 ####[facility] [address] [place], [address] Nucleated RBC (Bld) [#/Vol] 0 10*3/uL Normal 0-5 [facility] Comment on above: Performed By: #### L 500.2500, L501.3620, L100.0100 ####[facility] [address] [place], [address] Platelet mean volume (Bld) [Entitic vol] 11.7 fL Normal 6.2-12.0 [facility] Comment on above: Performed By: #### L 500.2500, L501.3620, L100.0100 ####[facility] [address] [place], [address] Platelets (Bld) [#/Vol] 164 10*3/uL Normal 150-450 [facility] Comment on above: Performed By: #### L 500.2500, L501.3620, L100.0100 ####[facility] [address] [place], [address] RBC (Bld) [#/Vol] 2.62 10*6/uL Low 4.2-5.4 [facility] Comment on above: Performed By: #### L 500.2500, L501.3620, L100.0100 ####[facility] [address] [place], [address] RDW SD 47.1 fl High 35.1-43.9 [facility] Comment on above: Performed By: #### L 500.2500, L501.3620, L100.0100 ####[facility] [address] [place], [address] WBC (Bld) [#/Vol] 8.8 10*3/uL Normal 4.4-11.0 [facility] Comment on above: Performed By: #### L 500.2500, L501.3620, L100.0100 ####[facility] [address] [place], [address] CPK Total, Creatine Kinaseon 03-09-2025 CPK TOTAL 308 U/L High 24-195 [facility] Comment on above: Performed By: #### L 500.2500, L501.3620, L100.0100 ####[facility] [address] [place], [address] Consultation - Nephrologyon 03-09-2025 Consultation - Nephrology Normal [facility] Consultation - Surgicalon Consultation - Surgical Normal [facility] Folate [Mass/volume] in Seru m or PlasmaOrdered By: Maddie Merchant on 03-09-2025 Folate [Mass/Vol] 15.10 ng/mL 4.60-34.80 [facility] Folates,Serum (Folic Acid)on 03-09-2025 FOLATES,SERUM 15.10 ng/mL Normal 4.60-34.80 [facility] Comment on above: Performed By: #### L 506.0200 ####[facility] [address] [place], [address] Kidney and Bladderon 025 Kidney and Bladder Normal [facility] Random urine creatinine natalia urement (mass/volume)Ordered By: Zarina Adler on 03-09-2025 Creatinine Unsp time (U) [Mass/Vol] 37.70 mg/dL 28.00-217.0 0 [facility] Serum or plasma creatine kin ase activityOrdered By: Broderick Dempsey on 03-09-2025 CK [Catalytic activity/Vol] 308 U/L High 24-195 [facility] Urine Cultureon 03-09-2025 URC Normal [facility] Comment on above: Performed By: #### M 100.2200 ####[facility] [address] [place], [address] Urine protein measurement (m ass/volume)Ordered By: Zarina Adler on 03-09-2025 Protein (U) [Mass/Vol] 8.5 mg/dL 0.0-12.0 [facility] Urine protein/creatinine mas s ratioOrdered By: Zarina Adler on 03-09-2025 Protein/Creatinine (U) [Mass ratio] 226 mg/g CRE High 0-200 [facility] Bedside Glucoseon 03-08-2025 FINGERSTICK GLU 249 mg/dL High 74-106 [facility] Comment on above: Result Comment: JEREMIAS GEMENT OF PATIENT CARE PER NURSING PROTOCOL Performed By: #### L 501.080 ####[facility] [address] [place], [address] FINGERSTICK GLU 200 mg/dL High 74-106 [facility] Comment on above: Result Comment: JEREMIAS GEMENT OF PATIENT CARE PER NURSING PROTOCOL Performed By: #### L 501.080 ####[facility] [address] [place], [address] FINGERSTICK GLU 165 mg/dL High 74-106 [facility] Comment on above: Result Comment: JEREMIAS GEMENT OF PATIENT CARE PER NURSING PROTOCOL Performed By: #### L 501.080 ####[facility] [address] [place], [address] FINGERSTICK GLU 159 mg/dL High [facility]106 [facility] Comment on above: Result Comment: JEREMIAS GEMENT OF PATIENT CARE PER NURSING PROTOCOL Performed By: #### L 501.080 ####[facility] [address] [place], [address] FINGERSTICK GLU 283 mg/dL High 74-106 [facility] Comment on above: Result Comment: JEREMIAS PADILLA OF PATIENT CARE PER NURSING PROTOCOL Performed By: #### L 501.080 ####[facility] [address] [place], [address] Bilirubin, totalOrdered By: Maddie Merchant on 03-08-2025 Bilirubin [Mass/Vol] 0.25 mg/dL 0.00-1.30 [facility] CBC W/Diff, Automatedon 02-18 Absolute Lymph 1.08 X10 3/uL Normal 0.83-4.51 [facility] Comment on above: Performed By: #### L 100.0100, L500.4050, L501.9985, L503.6550, L501.3620, L503.0106, L503.6030 ####[facility] [address] [place], [address] Absolute Neut 7.1 X10 3/uL Normal 2.0-7.7 [facility] Comment on above: Performed By: #### L 100.0100, L500.4050, L501.9985, L503.6550, L501.3620, L503.0106, L503.6030 ####[facility] [address] [place], [address] Basophils/100 WBC (Bld) 0.4 % Normal 0-1 [facility] Comment on above: Performed By: #### L 100.0100, L500.4050, L501.9985, L503.6550, L501.3620, L503.0106, L503.6030 ####[facility] [address] [place], [address] Eosinophils/100 WBC (Bld) 1.6 % Normal 0-5 [facility] Comment on above: Performed By: #### L 100.0100, L500.4050, L501.9985, L503.6550, L501.3620, L503.0106, L503.6030 ####[facility] [address] [place], [address] Erythrocyte distribution width (RBC) [Ratio] 14.5 % Normal 11.6-14.6 [facility] Comment on above: Performed By: #### L 100.0100, L500.4050, L501.9985, L503.6550, L501.3620, L503.0106, L503.6030 ####[facility] [address] [place], [address] Hematocrit (Bld) [Volume fraction] 25.1 % Low 37-47 [facility] Comment on above: Performed By: #### L 100.0100, L500.4050, L501.9985, L503.6550, L501.3620, L503.0106, L503.6030 ####[facility] [address] [place], [address] Hemoglobin (Bld) [Mass/Vol] 7.9 g/dL Low 12.0-15.0 [facility] Comment on above: Performed By: #### L 100.0100, L500.4050, L501.9985, L503.6550, L501.3620, L503.0106, L503.6030 ####[facility] [address] [place], [address] IG% 0.700 Normal 0.0-0.9 [facility] Comment on above: Result Comment: IG% - Immature Granulocytes (promyelocytes, myelocytes andmetamyelocytes) > 1% indicates that a LEFT SHIFT is Present. Performed By: #### L 100.0100, L500.4050, L501.9985, L503.6550, L501.3620, L503.0106, L503.6030 ####[facility] [address] [place], [address] Lymphocytes/100 WBC (Bld) 11.7 % Low 19-41 [facility] Comment on above: Performed By: #### L 100.0100, L500.4050, L501.9985, L503.6550, L501.3620, L503.0106, L503.6030 ####[facility] [address] [place], [address] MCH (RBC) [Entitic mass] 28.2 pg Normal 27.0-32.0 [facility] Comment on above: Performed By: #### L 100.0100, L500.4050, L501.9985, L503.6550, L501.3620, L503.0106, L503.6030 ####[facility] [address] [place], [address] MCHC (RBC) [Mass/Vol] 31.5 g/dL Low 32-36 [facility] Comment on above: Performed By: #### L 100.0100, L500.4050, L501.9985, L503.6550, L501.3620, L503.0106, L503.6030 ####[facility] [address] [place], [address] MCV (RBC) [Entitic vol] 89.6 fL Normal 81-99 [facility] Comment on above: Performed By: #### L 100.0100, L500.4050, L501.9985, L503.6550, L501.3620, L503.0106, L503.6030 ####[facility] [address] [place], [address] Monocytes/100 WBC (Bld) 9.1 % Normal 0-10 [facility] Comment on above: Performed By: #### L 100.0100, L500.4050, L501.9985, L503.6550, L501.3620, L503.0106, L503.6030 ####[facility] [address] [place], [address] Neutrophils/100 WBC (Bld) 76.5 % High 47-70 [facility] Comment on above: Performed By: #### L 100.0100, L500.4050, L501.9985, L503.6550, L501.3620, L503.0106, L503.6030 ####[facility] [address] [place], [address] Nucleated RBC (Bld) [#/Vol] 0 10*3/uL Normal 0-5 [facility] Comment on above: Performed By: #### L 100.0100, L500.4050, L501.9985, L503.6550, L501.3620, L503.0106, L503.6030 ####[facility] [address] [place], [address] Platelet mean volume (Bld) [Entitic vol] 11.6 fL Normal 6.2-12.0 [facility] Comment on above: Performed By: #### L 100.0100, L500.4050, L501.9985, L503.6550, L501.3620, L503.0106, L503.6030 ####[facility] [address] [place], [address] Platelets (Bld) [#/Vol] 185 10*3/uL Normal 150-450 [facility] Comment on above: Performed By: #### L 100.0100, L500.4050, L501.9985, L503.6550, L501.3620, L503.0106, L503.6030 ####[facility] [address] [place], [address] RBC (Bld) [#/Vol] 2.80 10*6/uL Low 4.2-5.4 [facility] Comment on above: Performed By: #### L 100.0100, L500.4050, L501.9985, L503.6550, L501.3620, L503.0106, L503.6030 ####[facility] [address] [place], [address] RDW SD 46.7 fl High 35.1-43.9 [facility] Comment on above: Performed By: #### L 100.0100, L500.4050, L501.9985, L503.6550, L501.3620, L503.0106, L503.6030 ####[facility] [address] [place], [place], [address] WBC (Bld) [#/Vol] 9.2 10*3/uL Normal 4.4-11.0 [facility] Comment on above: Performed By: #### L 100.0100, L500.4050, L501.9985, L503.6550, L501.3620, L503.0106, L503.6030 ####[facility] [address] [place], [place], [id number] CPK Total, Creatine Kinaseon 03-08-2025 CPK TOTAL 736 U/L High 24-195 [facility] Comment on above: Performed By: #### L 100.0100, L500.4050, L501.9985, L503.6550, L501.3620, L503.0106, L503.6030 ####[facility] [address] [place], [address] Comprehensive Metabolic Prof ilon 03-08-2025 Albumin [Mass/Vol] 2.6 g/dL Low 3.4-4.8 [facility] Comment on above: Performed By: #### L 100.0100, L500.4050, L501.9985, L503.6550, L501.3620, L503.0106, L503.6030 ####[facility] [address] [place], [address] Albumin/Globulin [Mass ratio] 1.1 {ratio} Normal 0.9-2.4 [facility] Comment on above: Performed By: #### L 100.0100, L500.4050, L501.9985, L503.6550, L501.3620, L503.0106, L503.6030 ####[facility] [address] [place], [address] ALK PHOS 58 U/L Normal 35-104 [facility] Comment on above: Performed By: #### L 100.0100, L500.4050, L501.9985, L503.6550, L501.3620, L503.0106, L503.6030 ####[facility] [address] [place], [address] ALT [Catalytic activity/Vol] 48 U/L High <=34 [facility] Comment on above: Performed By: #### L 100.0100, L500.4050, L501.9985, L503.6550, L501.3620, L503.0106, L503.6030 ####[facility] [address] [place], [address] AST [Catalytic activity/Vol] 45 U/L High <=31 [facility] Comment on above: Performed By: #### L 100.0100, L500.4050, L501.9985, L503.6550, L501.3620, L503.0106, L503.6030 ####[facility] [address] [place], [address] Bilirubin [Mass/Vol] 0.25 mg/dL Normal 0.00-1.30 [facility] Comment on above: Performed By: #### L 100.0100, L500.4050, L501.9985, L503.6550, L501.3620, L503.0106, L503.6030 ####[facility] [address] [place], [address] BUN/CRE 52.5 RATIO High 10-20 [facility] Comment on above: Performed By: #### L 100.0100, L500.4050, L501.9985, L503.6550, L501.3620, L503.0106, L503.6030 ####[facility] [address] [place], [address] Calcium [Mass/Vol] 8.1 mg/dL Normal 7.6-11.0 [facility] Comment on above: Performed By: #### L 100.0100, L500.4050, L501.9985, L503.6550, L501.3620, L503.0106, L503.6030 ####[facility] [address] [place], [address] Chloride [Moles/Vol] 111 mmol/L High 98-108 [facility] Comment on above: Performed By: #### L 100.0100, L500.4050, L501.9985, L503.6550, L501.3620, L503.0106, L503.6030 ####[facility] [address] [place], [address] CO2 [Moles/Vol] 17.3 mmol/L Low 21.0-32.0 [facility] Comment on above: Performed By: #### L 100.0100, L500.4050, L501.9985, L503.6550, L501.3620, L503.0106, L503.6030 ####[facility] [address] [place], [address] Creatinine [Mass/Vol] 2.02 mg/dL High 0.70-1.20 [facility] Comment on above: Performed By: #### L 100.0100, L500.4050, L501.9985, L503.6550, L501.3620, L503.0106, L503.6030 ####[facility] [address] [place], [address] ECRCL 25.62 ml/min Low 50-250 [facility] Comment on above: Performed By: #### L 100.0100, L500.4050, L501.9985, L503.6550, L501.3620, L503.0106, L503.6030 ####[facility] [address] [place], [address] GAP 14 Normal 5-15 [facility] Comment on above: Performed By: #### L 100.0100, L500.4050, L501.9985, L503.6550, L501.3620, L503.0106, L503.6030 ####[facility] [address] [place], [address] GFR/1.73 sq M.predicted among non-blacks MDRD (S/P/Bld) [Vol rate/Area] 26 mL/min/{1.73_m2} Low >60 [facility] Comment on above: Result Comment: mL/m in/1.73m2 CKD-EPI Creatinine Equation (2020) Performed By: #### L 100.0100, L500.4050, L501.9985, L503.6550, L501.3620, L503.0106, L503.6030 ####[facility] [address] [place], [address] Globulin (S) [Mass/Vol] 2.4 g/dL Normal 2.2-4.2 [facility] Comment on above: Performed By: #### L 100.0100, L500.4050, L501.9985, L503.6550, L501.3620, L503.0106, L503.6030 ####[facility] [address] [place], [address] Glucose [Mass/Vol] 172 mg/dL High 70-99 [facility] Comment on above: Performed By: #### L 100.0100, L500.4050, L501.9985, L503.6550, L501.3620, L503.0106, L503.6030 ####[facility] [address] [place], [address] Potassium [Moles/Vol] 3.8 mmol/L Normal 3.3-5.1 [facility] Comment on above: Performed By: #### L 100.0100, L500.4050, L501.9985, L503.6550, L501.3620, L503.0106, L503.6030 ####[facility] [address] [place], [address] Sodium [Moles/Vol] 143 mmol/L Normal 133-145 [facility] Comment on above: Performed By: #### L 100.0100, L500.4050, L501.9985, L503.6550, L501.3620, L503.0106, L503.6030 ####[facility] [address] [place], [address] T PROT 5.1 g/dL Low 5.9-8.4 [facility] Comment on above: Performed By: #### L 100.0100, L500.4050, L501.9985, L503.6550, L501.3620, L503.0106, L503.6030 ####[facility] [address] [place], [address] Urea nitrogen [Mass/Vol] 106 mg/dL Invalid Interpretation Code 4-19 [facility] Comment on above: Result Comment: Crit ical Result(s) Called at: by:??Results read back bysame.Critical Result(s) Called to Zoraida PENNINGTON (MS3): byM.Stoner:??Results read back by same. Performed By: #### L 100.0100, L500.4050, L501.9985, L503.6550, L501.3620, L503.0106, L503.6030 ####[facility] [address] [place], [address] Ferritinon 03-08-2025 Ferritin [Mass/Vol] 270 ng/mL Normal 22-378 [facility] Comment on above: Performed By: #### L 100.0100, L500.4050, L501.9985, L503.6550, L501.3620, L503.0106, L503.6030 ####[facility] [address] [place], [address] HH, Hemoglobin AND Hematocri ton 03-08-2025 Hematocrit (Bld) [Volume fraction] 24.0 % Low 37-47 [facility] Comment on above: Performed By: #### L 100.0600 ####[facility] [address] [place], [address] Hemoglobin (Bld) [Mass/Vol] 7.7 g/dL Low 12.0-15.0 [facility] Comment on above: Performed By: #### L 100.0600 ####[facility] [address] [place], [address] Hemoglobin A1con 03-08-2025 HbA1c (Bld) [Mass fraction] 6.5 % High <=5.6 [facility] Comment on above: Result Comment: Norm al < 5.7 % Prediabetic 5.7 - 6.4 % Diabetic >or= 6.5 % Please note range changes. Performed By: #### L 100.0100, L500.4050, L501.9985, L503.6550, L501.3620, L503.0106, L503.6030 ####[facility] [address] [place], [address] Hemoglobin A1c percentageOrd ered By: Maddie Merchant on 03-08-2025 HbA1c (Bld) [Mass fraction] 6.5 % High <5.7 [facility] Comment on above: Normal < 5.7 % Predi abetic 5.7 - 6.4 % Diabetic >or= 6.5 % Please note range changes. Iron measurement (mass/mass) Ordered By: Maddie Merchant on 03-08-2025 Iron (Unsp spec) [Mass/Mass] 18 ug/dL Low 50-170 [facility] Iron+Iron Binding Capacityon 03-08-2025 TIBC TNP Normal 250-450 [facility] Comment on above: Performed By: #### L 100.0100, L500.4050, L501.9985, L503.6550, L501.3620, L503.0106, L503.6030 ####[facility] [address] [place], [place], [id number] Laboratory - Chemistry and C hemistry - challengeOrdered By: Maddie Merchant on 03-08-2025 AST [Catalytic activity/Vol] 45 U/L High <32 [facility] No Panel InformationOrdered By: Maddie Merchant on 03-08-2025 Unsaturated Iron Binding Capacity 150 ug/dL Low 228-428 [facility] 45 U/L High <32 [facility] 150 ug/dL Low 228-428 [facility] Serum globulin measurementOr dered By: Maddie Merchant 03-08-2025 Globulin (S) [Mass/Vol] 2.4 g/dL 2.2-4.2 [facility] Serum or plasma alanine anaya otransferase (ALT) measurementOrdered By: Maddie Merchant 03-08-2025 ALT [Catalytic activity/Vol] 48 U/L High <35 [facility] Serum or plasma albumin natalia urement (mass/volume)Ordered By: Maddie Merchant on 03-08-2025 Albumin [Mass/Vol] 2.6 g/dL Low 3.4-4.8 [facility] Serum or plasma albumin/glob ulin mass ratioOrdered By: Maddie Merchant on 03-08-2025 Albumin/Globulin [Mass ratio] 1.1 {ratio} 0.9-2.4 [facility] Serum or plasma alkaline chelsie sphatase measurementOrdered By: Maddie Merchant on 03-08-2025 ALP [Catalytic activity/Vol] 58 U/L 35-104 [facility] Serum or plasma ferritin areli surement (mass/volume)Ordered By: Maddie Merchant on 03-08-2025 Ferritin [Mass/Vol] 270 ng/mL 22-378 [facility] Serum or plasma iron saturat ion measurement (mass fraction)Ordered By: Maddie Merchant on 03-08-2025 Iron saturation [Mass fraction] 11.0 % Low 13-59 [facility] Total proteinOrdered By: Stacia Merchant on 03-08-2025 Protein [Mass/Vol] 5.1 g/dL Low 5.9-8.4 [facility] Vitamin B12on 03-08-2025 Cobalamin (Vitamin B12) [Mass/Vol] 3538 pg/mL High 180-914 [facility] Comment on above: Performed By: #### L 100.0100, L500.4050, L501.9985, L503.6550, L501.3620, L503.0106, L503.6030 ####[facility] [address] [place], [place], [id number] Vitamin B12 ser/plasOrdered By: Maddie Merchant on 03-08-2025 Cobalamin (Vitamin B12) [Mass/Vol] 3538 pg/mL High 180-914 [facility] 12 Lead EKGon 03-07-2025 12 Lead EKG Normal [facility] Absolute neutrophil countOrd ered By: Megan Anderson on 03-07-2025 Neutrophils (Bld) [#/Vol] 12.9 10*3/uL High 2.0-7.7 [facility] Anion gap in Serum or Plasma Ordered By: Megan Anderson on 03-07-2025 Anion gap [Moles/Vol] 18 mmol/L High 5- [facility] BUN/creatinine ratioOrdered By: eMgan Anderson on 03-07-2025 Urea nitrogen/Creatinine [Mass ratio] 51.2 mg/mg High 10-20 [facility] Basic Metabolic Profile (BMP )on 03-07-2025 BUN/CRE 51.2 RATIO High 10-20 [facility] Comment on above: Performed By: #### L 500.2500, L501.3620, L100.0100 ####[facility] [address] [place], [address] Calcium [Mass/Vol] 8.8 mg/dL Normal 7.6-11.0 [facility] Comment on above: Performed By: #### L 500.2500, L501.3620, L100.0100 ####[facility] [address] [place], [address] Chloride [Moles/Vol] 105 mmol/L Normal 98-108 [facility] Comment on above: Performed By: #### L 500.2500, L501.3620, L100.0100 ####[facility] [address] [place], [address] CO2 [Moles/Vol] 16.8 mmol/L Low 21.0-32.0 [facility] Comment on above: Performed By: #### L 500.2500, L501.3620, L100.0100 ####[facility] [address] [place], [address] Creatinine [Mass/Vol] 2.54 mg/dL High 0.70-1.20 [facility] Comment on above: Performed By: #### L 500.2500, L501.3620, L100.0100 ####[facility] [address] [place], [address] ECRCL 20.75 ml/min Low 50-250 [facility] Comment on above: Performed By: #### L 500.2500, L501.3620, L100.0100 ####[facility] [address] [place], [address] GAP 18 High 5-15 [facility] Comment on above: Performed By: #### L 500.2500, L501.3620, L100.0100 ####[facility] [address] [place], [address] GFR/1.73 sq M.predicted among non-blacks MDRD (S/P/Bld) [Vol rate/Area] 19 mL/min/{1.73_m2} Low >60 [facility] Comment on above: Result Comment: mL/m in/1.73m2 CKD-EPI Creatinine Equation (2020) Performed By: #### L 500.2500, L501.3620, L100.0100 ####[facility] [address] [place], [address] Glucose [Mass/Vol] 178 mg/dL High 70-99 [facility] Comment on above: Performed By: #### L 500.2500, L501.3620, L100.0100 ####[facility] [address] [place], [address] Potassium [Moles/Vol] 4.5 mmol/L Normal 3.3-5.1 [facility] Comment on above: Performed By: #### L 500.2500, L501.3620, L100.0100 ####[facility] [address] [place], [address] Sodium [Moles/Vol] 140 mmol/L Normal 133-145 [facility] Comment on above: Performed By: #### L 500.2500, L501.3620, L100.0100 ####[facility] [address] [place], [address] Urea nitrogen [Mass/Vol] 130 mg/dL Invalid Interpretation Code 4- [facility] Comment on above: Result Comment: Crit ical Result(s) Called at: by:??Results read back bysame.Critical Result(s) Called ACOLE at: 1532 by:CHRISTIN??Results read back by same. Performed By: #### L 500.2500, L501.3620, L100.0100 ####[facility] [address] [place], [address] Basophil percentageOrdered B y: Megan Anderson on 03-07-2025 Basophils/100 WBC (Bld) 0.3 % 0-1 [facility] Bilirubin Test strip Ql (U)O rdered By: Megan Anderson on 03-07-2025 Bilirubin Ql (U) Negative Negative [facility] Bilirubin directOrdered By: Maddie Merchant on 03-07-2025 Bilirubin.direct [Mass/Vol] 0.25 mg/dL 0.00-0.30 [facility] CBC W/Diff, Automatedon 02-17 Absolute Lymph 0.76 X10 3/uL Low 0.83-4.51 [facility] Comment on above: Performed By: #### L 500.2500, L501.3620, L100.0100 ####[facility] [address] [place], [address] Absolute Neut 12.9 X10 3/uL High 2.0-7.7 [facility] Comment on above: Performed By: #### L 500.2500, L501.3620, L100.0100 ####[facility] [address] [place], [address] Basophils/100 WBC (Bld) 0.3 % Normal 0-1 [facility] Comment on above: Performed By: #### L 500.2500, L501.3620, L100.0100 ####[facility] [address] [place], [address] Eosinophils/100 WBC (Bld) 0.4 % Normal 0-5 [facility] Comment on above: Performed By: #### L 500.2500, L501.3620, L100.0100 ####[facility] [address] [place], [address] Erythrocyte distribution width (RBC) [Ratio] 14.5 % Normal 11.6-14.6 [facility] Comment on above: Performed By: #### L 500.2500, L501.3620, L100.0100 ####[facility] [address] [place], [address] Hematocrit (Bld) [Volume fraction] 27.2 % Low 37-47 [facility] Comment on above: Performed By: #### L 500.2500, L501.3620, L100.0100 ####[facility] [address] [place], [address] Hemoglobin (Bld) [Mass/Vol] 8.7 g/dL Low 12.0-15.0 [facility] Comment on above: Performed By: #### L 500.2500, L501.3620, L100.0100 ####[facility] [address] [place], [address] IG% 1.000 High 0.0-0.9 [facility] Comment on above: Result Comment: IG% - Immature Granulocytes (promyelocytes, myelocytes andmetamyelocytes) > 1% indicates that a LEFT SHIFT is Present. Performed By: #### L 500.2500, L501.3620, L100.0100 ####[facility] [address] [place], [address] Lymphocytes/100 WBC (Bld) 5.2 % Low 19-41 [facility] Comment on above: Performed By: #### L 500.2500, L501.3620, L100.0100 ####[facility] [address] [place], [address] MCH (RBC) [Entitic mass] 28.3 pg Normal 27.0-32.0 [facility] Comment on above: Performed By: #### L 500.2500, L501.3620, L100.0100 ####[facility] [address] [place], [address] MCHC (RBC) [Mass/Vol] 32.0 g/dL Normal 32-36 [facility] Comment on above: Performed By: #### L 500.2500, L501.3620, L100.0100 ####[facility] [address] [place], [address] MCV (RBC) [Entitic vol] 88.6 fL Normal 81-99 [facility] Comment on above: Performed By: #### L 500.2500, L501.3620, L100.0100 ####[facility] [address] [place], [address] Monocytes/100 WBC (Bld) 5.3 % Normal 0-10 [facility] Comment on above: Performed By: #### L 500.2500, L501.3620, L100.0100 ####[facility] [address] [place], [address] Neutrophils/100 WBC (Bld) 87.8 % High 47-70 [facility] Comment on above: Performed By: #### L 500.2500, L501.3620, L100.0100 ####[facility] [address] [place], [address] Nucleated RBC (Bld) [#/Vol] 0 10*3/uL Normal 0-5 [facility] Comment on above: Performed By: #### L 500.2500, L501.3620, L100.0100 ####[facility] [address] [place], [address] Platelet mean volume (Bld) [Entitic vol] 11.3 fL Normal 6.2-12.0 [facility] Comment on above: Performed By: #### L 500.2500, L501.3620, L100.0100 ####[facility] [address] [place], [address] Platelets (Bld) [#/Vol] 216 10*3/uL Normal 150-450 [facility] Comment on above: Performed By: #### L 500.2500, L501.3620, L100.0100 ####[facility] [address] [place], [address] RBC (Bld) [#/Vol] 3.07 10*6/uL Low 4.2-5.4 [facility] Comment on above: Performed By: #### L 500.2500, L501.3620, L100.0100 ####[facility] [address] [place], [address] RDW SD 45.6 fl High 35.1-43.9 [facility] Comment on above: Performed By: #### L 500.2500, L501.3620, L100.0100 ####[facility] [address] [place], [address] WBC (Bld) [#/Vol] 14.7 10*3/uL High 4.4-11.0 [facility] Comment on above: Performed By: #### L 500.2500, L501.3620, L100.0100 ####[facility] [address] [place], [address] CPK Total, Creatine Kinaseon 03-07-2025 CPK TOTAL 837 U/L High 24-195 [facility] Comment on above: Performed By: #### L 500.2500, L501.3620, L100.0100 ####[facility] [address] [place], [address] Carbon dioxide, total [Moles /volume] in Central venous bloodOrdered By: Megan Anderson on 03-07-2025 CO2 [Moles/Vol] 16.8 mmol/L Low 21.0-32.0 [facility] Chest 1 View (Portable)on Chest 1 View (Portable) Normal [facility] Chloride assayOrdered By: Teri Anderson on 03-07-2025 Chloride [Moles/Vol] 105 mmol/L 98-108 [facility] Emergency Department Summary on 03-07-2025 Emergency Department Summary Normal [facility] Eosinophil percentageOrdered By: Megan Anderson on 03-07-2025 Eosinophils/100 WBC (Bld) 0.4 % 0-5 [facility] Epithelial cells.squamous LM Ql (Urine sed)Ordered By: Megan Anderson on 03-07-2025 Epithelial cells.squamous LM.HPF (Urine sed) [#/Area] 0 /[HPF] 5-10 [facility] Erythrocyte distribution wid th (RBC) [Ratio]Ordered By: Megan Anderson on 03-07-2025 Erythrocyte distribution width (RBC) [Entitic vol] 45.6 fL High 35.1-43.9 [facility] Erythrocyte distribution wid th ratioOrdered By: Megan Anderson on 03-07-2025 Erythrocyte distribution width (RBC) [Ratio] 14.5 % 11.6-14.6 [facility] Estimation of creatinine chirag aranceOrdered By: Megan Anderson on 03-07-2025 Estimated Creatinine Clearance Calc 20.75 ml/min Low 50-250 [facility] GFR/1.73 sq M.predicted sadia g non-blacks MDRD (S/P/Bld) [Vol rate/Area]Ordered By: Megan Anderson on 03-07-2025 Estimated GFR (MDRD) Non-Af Amer 19 Low >60 [facility] Comment on above: mL/min/1.73m2 CKD-EP I Creatinine Equation (2020) Glucose Ql (U)Ordered By: Teri Anderson on 03-07-2025 Urine Glucose (UA) Normal mg/dl Normal [facility] H AND P Exam - [facility] 03-07-2025 H&P Exam - Hospitalist Normal [facility] HH, Hemoglobin AND Hematocri ton 03-07-2025 Hematocrit (Bld) [Volume fraction] 25.0 % Low 37-47 [facility] Comment on above: Performed By: #### L 100.0600 ####[facility] [id number] [place], [address] Hemoglobin (Bld) [Mass/Vol] 8.3 g/dL Low 12.0-15.0 [facility] Comment on above: Performed By: #### L 100.0600 ####[facility] [id number] [place], [address] HIP, UNI W/ Pelvis 2-3 Views on 03-07-2025 HIP, UNI W/ Pelvis 2-3 Views Normal [facility] Hematocrit Auto (Bld) [Volum e fraction]Ordered By: Megan Anderson on 03-07-2025 Hematocrit (Bld) [Volume fraction] 27.2 % Low 37-47 [facility] Hemoglobin measurementOrdere d By: Megan Anderson on 03-07-2025 Hemoglobin (Bld) [Mass/Vol] 8.7 g/dL Low 12.0-15.0 [facility] Immature granulocytes/100 WB C Auto (Bld)Ordered By: Megan Anderson on 03-07-2025 Immature granulocytes/100 WBC (Bld) 1.000 % High 0.0-0.9 [facility] Comment on above: IG% - Immature Granu locytes (promyelocytes, myelocytes and metamyelocytes) > 1% indicates that a LEFT SHIFT is Present. Ketones Test strip Ql (U)Ord ered By: Megan Anderson on 03-07-2025 Ketones Ql (U) 5 mg/dl High Negative [facility] Liver Profileon 03-07-2025 Albumin [Mass/Vol] 3.1 g/dL Low 3.4-4.8 [facility] Comment on above: Order Comment: Comme nts: May add to ED labsComments: may add to ED labs Performed By: #### L 501.5200, L501.2300, L500.3400 ####[facility] [id number] [place], [address] ALK PHOS 66 U/L Normal 35-104 [facility] Comment on above: Order Comment: Comme nts: May add to ED labsComments: may add to ED labs Performed By: #### L 501.5200, L501.2300, L500.3400 ####[facility] [address] [place], [address] ALT [Catalytic activity/Vol] 60 U/L High <=34 [facility] Comment on above: Order Comment: Comme nts: May add to ED labsComments: may add to ED labs Performed By: #### L 501.5200, L501.2300, L500.3400 ####[facility] [address] [place], [address] AST [Catalytic activity/Vol] 52 U/L High <=31 [facility] Comment on above: Order Comment: Comme nts: May add to ED labsComments: may add to ED labs Performed By: #### L 501.5200, L501.2300, L500.3400 ####[facility] [address] [place], [address] Bilirubin [Mass/Vol] 0.42 mg/dL Normal 0.00-1.30 [facility] Comment on above: Order Comment: Comme nts: May add to ED labsComments: may add to ED labs Performed By: #### L 501.5200, L501.2300, L500.3400 ####[facility] [address] [place], [address] Bilirubin.direct [Mass/Vol] 0.25 mg/dL Normal 0.00-0.30 [facility] Comment on above: Order Comment: Comme nts: May add to ED labsComments: may add to ED labs Performed By: #### L 501.5200, L501.2300, L500.3400 ####[facility] [address] [place], [address] Globulin (S) [Mass/Vol] 2.8 g/dL Normal 2.2-4.2 [facility] Comment on above: Order Comment: Comme nts: May add to ED labsComments: may add to ED labs Performed By: #### L 501.5200, L501.2300, L500.3400 ####[facility] [address] [place], [address] T PROT 5.9 g/dL Normal 5.9-8.4 [facility] Comment on above: Order Comment: Comme nts: May add to ED labsComments: may add to ED labs Performed By: #### L 501.5200, L501.2300, L500.3400 ####[facility] [address] [place], [address] Lower GI hemoglobin IA Ql (S tl)Ordered By: Megan Anderson on 03-07-2025 Stool Occult Blood (ERICA) Positive Abnormal [facility] Lymphocytes Auto (Unsp spec) [#/Vol]Ordered By: Megan Anderson on 03-07-2025 Lymphocytes (Bld) [#/Vol] 0.76 10*3/uL Low 0.83-4.51 [facility] Lymphocytes/100 WBC Auto (Un sp spec)Ordered By: Megan Anderson on 03-07-2025 Lymphocytes/100 WBC (Bld) 5.2 % Low 19-41 [facility] MCV (mean corpuscular volume ) determinationOrdered By: Megan Anderson on 03-07-2025 MCV (RBC) [Entitic vol] 88.6 fL 81-99 [facility] Magnesiumon 03-07-2025 Magnesium [Mass/Vol] 2.9 mg/dL High 1.5-2.2 [facility] Comment on above: Order Comment: Comme nts: May add to ED labsComments: may add to ED labs Performed By: #### L 501.5200, L501.2300, L500.3400 ####[facility] [address] [place], [address] Magnesium measurement (mass/ volume)Ordered By: Maddie Merchant on 03-07-2025 Magnesium (Unsp spec) [Mass/Vol] 2.9 mg/dL High 1.5-2.2 [facility] Mean corpuscular hemoglobin (MCH) determinationOrdered By: Megan Anderson on 03-07-2025 MCH (RBC) [Entitic mass] 28.3 pg 27.0-32.0 [facility] Mean corpuscular hemoglobin concentration (MCHC) determinationOrdered By: Megan Anderson on 03-07-2025 MCHC (RBC) [Mass/Vol] 32.0 g/dL 32-36 [facility] Mean platelet volume determi nationOrdered By: Megan Anderson on 03-07-2025 Platelet mean volume (Bld) [Entitic vol] 11.3 fL 6.2-12.0 [facility] Microscopic analysis of urin e for red blood cells (RBC)Ordered By: Megan Anderson on 03-07-2025 Microscopic analysis of urine for red blood cells (RBC) 0 SEEN /hpf 0-5 [facility] Urine RBC 0 SEEN /hpf 0-5 [facility] Monocyte percentageOrdered B y: Megan Anderson on 03-07-2025 Monocytes/100 WBC (Bld) 5.3 % 0-10 [facility] Mucus LM Ql (Urine sed)Order ed By: Megan Anderson on 03-07-2025 Mucus Ql (Urine sed) 0 SEEN /hpf [facility] Neutrophil percentageOrdered By: Megan Anderson on 03-07-2025 Neutrophils/100 WBC (Bld) 87.8 % High 47-70 [facility] Nitrite Test strip Ql (U)Ord ered By: Megan Anderson on 03-07-2025 Nitrite Ql (U) Positive High Negative [facility] Nucleated red blood cell per centageOrdered By: Megan Anderson on 03-07-2025 Nucleated RBC/100 WBC (Bld) [Ratio] 0 % 0-5 [facility] Phosphoruson 03-07-2025 Phosphate [Mass/Vol] 5.0 mg/dL High 2.7-4.5 [facility] Comment on above: Order Comment: Comme nts: May add to ED labsComments: may add to ED labs Performed By: #### L 501.5200, L501.2300, L500.3400 ####[facility] [address] [place], [address] Platelet countOrdered By: Teri gonzales Justin on 03-07-2025 Platelets (Bld) [#/Vol] 216 10*3/uL 150-450 [facility] Potassium (Unsp spec) [Mass/ Vol]Ordered By: Meganayde Anderson on 03-07-2025 Potassium [Moles/Vol] 4.5 mmol/L 3.3-5.1 [facility] Protein Test strip Ql (U)Ord ered By: Megan Anderson on 03-07-2025 Protein Ql (U) 30 mg/dl High Negative [facility] RBC Auto (Bld) [#/Vol]Ordere d By: Meganayde Anderson on 03-07-2025 RBC (Bld) [#/Vol] 3.07 10*6/uL Low 4.2-5.4 [facility] Serum creatinine measurement (mass/volume)Ordered By: Megan Anderson on 03-07-2025 Creatinine [Mass/Vol] 2.54 mg/dL High 0.70-1.20 [facility] Serum glucose measurement (m ass/volume)Ordered By: Megan Anderson on 03-07-2025 Glucose [Mass/Vol] 178 mg/dL High 70-99 [facility] Serum or plasma calcium natalia urement (mass/volume)Ordered By: Megan Anderson on 03-07-2025 Calcium [Mass/Vol] 8.8 mg/dL 7.6-11.0 [facility] Serum or plasma creatine kin ase activityOrdered By: Megan Anderson on 03-07-2025 CK [Catalytic activity/Vol] 837 U/L High 24-195 [facility] Serum or plasma urea nitroge n measurement (mass/volume)Ordered By: Megan Anderson on 03-07-2025 Urea nitrogen [Mass/Vol] 130 mg/dL High 4-19 [facility] Comment on above: Critical Result(s) C alled at: by: Results read back by same.Critical Result(s) Called ACOLE at: 1532 by: BWORKMAN Results read back by same. Sodium levelOrdered By: Megan Anderson on 03-07-2025 Sodium [Moles/Vol] 140 mmol/L 133-145 [facility] Squamous epithelial cells de tection in urine sediment by light microscopyOrdered By: Megan Anderson on 03-07-2025 Epithelial cells.squamous LM Ql (Urine sed) 0 SEEN /hpf 5-10 [facility] Stool Occult Blood iFOBon STOB Positive Normal [facility] Comment on above: Performed By: #### M 100.7900 ####[facility] [address] [place], [address] Stool gastrointestinal hemog lobin detection by immunologic methodOrdered By: Megan Anderson on 03-07-2025 Lower GI hemoglobin IA Ql (Stl) Positive Abnormal [facility] Type AND Screenon 03-07-2025 ABO and Rh group Nom (Bld) Blood group A Rh(D) positive Normal [facility] Comment on above: Order Comment: HGI Performed By: #### B TS ####[facility] [address] [place], [address] Urinalysis, Completeon 03-07 BACTERIA 1+ /hpf Normal None Seen [facility] Comment on above: Order Comment: CORRIE CTOR TO SPECIFY Performed By: #### L 400.0001 ####[facility] [address] [place], [address] WBC >100 SEEN Normal 0-5 [facility] Comment on above: Order Comment: CORRIE CTOR TO SPECIFY Performed By: #### L 400.0001 ####[facility] [address] [place], [address] EPI,SQUAMOUS 0 SEEN Normal 5-10 [facility] Comment on above: Order Comment: CORRIE CTOR TO SPECIFY Performed By: #### L 400.0001 ####[facility] [address] [place], [address] Mucus Ql (Urine sed) 0 SEEN Normal [facility] Comment on above: Order Comment: CORRIE CTOR TO SPECIFY Performed By: #### L 400.0001 ####[facility] [address] [place], [address] RBC 0 SEEN Normal 0-5 [facility] Comment on above: Order Comment: COLLE CTOR TO SPECIFY Performed By: #### L 400.0001 ####[facility] [address] [place], [address] Urine blood detectionOrdered By: Megan Anderson on 03-07-2025 Urine Occult Blood 150 /ul High Negative [facility] Urine clarityOrdered By: Carmen Anderson on 03-07-2025 Clarity (U) Cloudy Clear [facility] Urine color determinationOrd ered By: Megan Anderson on 03-07-2025 Color (U) Yellow Yellow [facility] Urine cultureOrdered By: Mervin Becker on 03-07-2025 Bacteria identified Cx Nom (U) Klebsiella oxytoca Abnormal [facility] Urine glucose detectionOrder ed By: Megan Anderson on 03-07-2025 Glucose Ql (U) Normal mg/dl Normal [facility] Urine leukocyte esterase det ection by dipstickOrdered By: Megan Anderson on 03-07-2025 Leukocyte esterase Test strip Ql (U) 500 /ul High Negative [facility] Urine pHOrdered By: Megan louis on 03-07-2025 pH (U) 6.0 [pH] 5.0 - 8.0 [facility] Urine sediment bacteria coun t by microscopy (number/high power field)Ordered By: Megan Anderson on 03-07-2025 Bacteria LM.HPF (Urine sed) [#/Area] 1 /[HPF] None Seen [facility] Urine specific gravity measu rementOrdered By: Megan Anderson on 03-07-2025 Specific gravity (U) [Rel density] 1.015 1.002-1.030 [facility] Urine urobilinogen measureme ntOrdered By: Megan Anderson on 03-07-2025 Urobilinogen Ql (U) Normal mg/dl Normal [facility] Urobilinogen Ql (U)Ordered B y: Megan Anderson on 03-07-2025 Urine Urobilinogen Normal mg/dl Normal [facility] White blood cell (WBC) count Ordered By: Megan Anderson on 03-07-2025 WBC (Bld) [#/Vol] 14.7 10*3/uL High 4.4-11.0 [facility] White blood cell countOrdere d By: Megan Anderson on 03-07-2025 Urine WBC >100 SEEN /hpf 0-5 [facility] White blood cell count >100 SEEN /hpf 0-5 [facility] Culture, Anaerobic Any Sourc adonis 2025 CUAN Normal [facility] Comment on above: Performed By: #### M 100.2000, M100.3000, M100.4001 ####[facility] [address] [place], [address] Wound Cultureon 02-28-2025 WC Normal [facility] Comment on above: Performed By: #### M 100.2000, M100.3000, M100.4001 ####[facility] [address] [place], [address] Gram Stainon 02-27-2025 GS LEFT FOOT WOUND GRAM STAIN Gram Stain No Epithelial cells 1+ Gram positive cocci 1+ White Blood Cells Normal [facility] Comment on above: Performed By: #### M 100.2000, M100.3000, M100.4001 ####[facility] [address] [place], [address] Anaerobic cultureOrdered By: Patel Irene on 02-26-2025 Bacteria identified Anaer cx Nom (Unsp spec) Anaerobic cocci Abnormal [facility] Bacteria identified Anaer cx Nom (Unsp spec)Ordered By: Patel Irene on 02-26-2025 Anaerobic Culture Anaerobic cocci Abnormal [facility] Gram stainOrdered By: Keri Irene on 02-26-2025 Microscopic observation Gram stain Nom (Unsp spec) [facility] Routine wound cultureOrdered By: Patel Irene on 02-26-2025 Microbial culture, routine Meth. resistant Staph. aureus Abnormal [facility] Wound Culture Meth. resistant Stap h. aureus Abnormal [facility] Wound Cultureon 02-19-2025 WC Normal [facility] Comment on above: Performed By: #### M 100.3000, M100.1999 ####[facility] [address] [place], [address] Gram Stainon 02-17-2025 GS Gram Stain No White Blood Cells No organisms seen Normal [facility] Comment on above: Performed By: #### M 100.3000, M100.1999 ####[facility] [address] [place], [address] Decalcification bone/plaqueo n 02-16-2025 Decalcification bone/plaque Normal [facility] Comment on above: Performed By: #### P DEC ####[facility] [address] [place], [address] Gram stainOrdered By: Rishi Vasquez on 02-16-2025 Microscopic observation Gram stain Nom (Unsp spec) [facility] Routine wound cultureOrdered By: Rishi Vasquez on 02-16-2025 Microbial culture, routine Meth. resistant Staph. aureus Abnormal [facility] Wound Culture Meth. resistant Stap h. aureus Abnormal [facility] Wound Culture Negative Abnormal [facility] Wound Cultureon 02-06-2025 WC Normal [facility] Comment on above: Performed By: #### M 100.3000, M100.1999 ####[facility] [address] [place], [address] Gram Stainon 02-04-2025 GS Positive Normal [facility] Comment on above: Performed By: #### M 100.3000, M100.1999 ####[facility] [address] [place], [address] Gram stainOrdered By: Rishi Vasquez on 02-03-2025 Microscopic observation Gram stain Nom (Unsp spec) [facility] Routine wound cultureOrdered By: Rishi Vasquez on 02-03-2025 Microbial culture, routine Meth. resistant Staph. aureus Abnormal [facility] Wound Culture Meth. resistant Stap h. aureus Abnormal [facility] Lower Ext Art Exam w/o Exerc kris 01-06-2025 Lower Ext Art Exam w/o Exercis Normal [facility] Culture, Anaerobic Any Sourc adonis 01-03-2025 CUAN ONLY AN AEROBIC SWAB WAS RECEIVED FOR CULTURE. GROWTH OF ANAEROBES MAY BE INHIBITED. No anaerobic bacteria isolated. Normal [facility] Comment on above: Performed By: #### M 100.4001, M100.3000, M1.1999 ####[facility] [address] [place], [address] Wound Cultureon 01-02-2025 WC Normal [facility] Comment on above: Performed By: #### M 100.4001, M100.3000, M100.1999 ####[facility] [address] [place], [address] Anaerobic cultureOrdered By: Patel Irene on 12-31-2024 Bacteria identified Anaer cx Nom (Unsp spec) No anaerobic bacteria isolated. [facility] Bacteria identified Anaer cx Nom (Unsp spec)Ordered By: Patel Irene on 12-31-2024 Anaerobic Culture No anaerobic bacteri a isolated. [facility] Gram Stainon 12-31-2024 GS ONLY AN AEROBIC SWAB WAS RECEIVED FOR CULTURE. GROWTH OF ANAEROBES MAY BE INHIBITED. Gram Stain 2+ Gram positive cocci 2+ Red Blood Cells Normal [facility] Comment on above: Performed By: #### M 100.4001, M100.3000, M1.1999 ####[facility] [address] [place], [place], [address] Gram stainOrdered By: Keri Irene on 12-31-2024 Microscopic observation Gram stain Nom (Unsp spec) [facility] Routine wound cultureOrdered By: Patel Irene on 12-31-2024 Microbial culture, routine Meth. resistant Staph. aureus Abnormal [facility] Wound Culture Meth. resistant Stap h. aureus Abnormal [facility] L3410.9998on 12-24-2024 [facility] Misc. COMMENT Normal . [facility] Comment on above: Order Comment: [id number] 1WOUND CULTURE Result Comment: Test Ordered: [id number] Anaerobic/Aerobic/Gram StainAnaerobic Culture Note: CB Final report [...] cephalosporins, clindamycin,and trimethoprim-sulfamethoxazole are not effectiveclinically. (CLSI, L418-N90, 2016)Light growthEnterococci susceptible to penicillin are predictablysusceptible to ampicillin, amoxicillin, ampicillin-sulbactam, amoxicillin-clavulanate, and piperacillin-tazobactam for oyw-ucai-uxnzsfoxl producing enterococci.(CLSI 2018)Antimicrobial Susceptibility Comment CB Reference [...] organisms seen Reference Range: .Performed at: - [facility] [address] [id number] Director: Chele Santoyo PhD, Phone: [phone] Performed By: #### L 1602.9998 ####[facility] [address] [place], [address] CNOVon 12-05-2024 CNOV Office Visit (FAMPWS ) -------- GELY FULLER ([id number]) 1950 F Date Time Provider Department 12/05/24 [...] Seeing Dr. 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 Ortiz [facility]-03/25/2020 left mild, right moderate Multiple thyroid nodules last US 01/2015 Peripheral artery disease (HCC) due to Diabetes mellitus, Dr. Kwaku Moscoso Rotator cuff syndrome of left shoulder Dr. Deluna [facility] PAST SURGICAL HISTORY Procedure Laterality Date AMPUTATION [...] 04-08-13 ROTATOR CUFF REPA[facility] 03/11[facility]D ABDL PEL/LXTR ART BRNCH 06-07-16 APLL Social History Tobacco Use Smoking status: Former Current packs/day: 0.00 Average packs/day: 0.5 packs/day for 45.0 years (22.5 ttl pk-yrs) Types: Cigarettes Start date: 12/20/1967 Quit date: 12/20/2012 Years since quittin.9 Smokeless tobacco: Never Substance Use Topics Alcohol use: No Drug use: No FAMILY H (more content not included)... Normal [facility] 25(OH)D3 SerPl-ncon 2024 25-hydroxyvitamin D3 [Mass/Vol] 62.6 ng/mL Normal 31.0-80.0 [facility] Comment on above: Order Comment: Speci men Type: BLOOD SPECIMENOrdering Facility: [facility] Address: [address] [place] [address] Result Comment: Clas sification of 25 [place] Vitamin D status: Deficiency/Insufficiency: < or = 30 ng/ml. Sufficiency/Optimal Levels: 31-80 ng/mL Toxicity: > 100 ng/mL. Test performed by chemiluminescent immunoassay. Performed By: #### 1 989-3 ####[facility] LABCLIA [id number] [place] [address] [place] CBC panel Auto (Bld)on 12-01 Erythrocyte distribution width (RBC) [Ratio] 12.5 % Normal 11.5-15.0 [facility] Comment on above: Order Comment: Speci men Type: BLOOD SPECIMENOrdering Facility: [facility] Address: [address] [place] [address] Performed By: #### 5 8410-2 ####[facility] LABIA [id number] [place] [address] [place] Hematocrit (Bld) [Volume fraction] 37.8 % Normal 36.0-46.0 [facility] Comment on above: Order Comment: Speci men Type: BLOOD SPECIMENOrdering Facility: [facility] Address: [address] [place] [address] Performed By: #### 5 8410-2 ####[facility] LABIA [id number] [place] [address] [place] Hemoglobin (Bld) [Mass/Vol] 12.1 g/dL Normal 11.5-15.5 [facility] Comment on above: Order Comment: Speci men Type: BLOOD SPECIMENOrdering Facility: [facility] Address: [address] [place] [address] Performed By: #### 5 8410-2 ####[facility] LABIA [id number] [place] [address] [place] MCH (RBC) [Entitic mass] 31.2 pg Normal 26.0-34.0 [facility] Comment on above: Order Comment: Speci men Type: BLOOD SPECIMENOrdering Facility: [facility] Address: [address] [place] [address] Performed By: #### 5 8410-2 ####[facility] LABCLIA [id number] [place] [address] [place] MCHC (RBC) [Mass/Vol] 32.0 g/dL Normal 30.5-36.0 [facility] Comment on above: Order Comment: Speci men Type: BLOOD SPECIMENOrdering Facility: [facility] Address: [address] [place] [address] Performed By: #### 5 8410-2 ####[facility] LABCLIA [id number] [place] [address] [place] MCV (RBC) [Entitic vol] 97.4 fL Normal 80.0-100.0 [facility] Comment on above: Order Comment: Speci men Type: BLOOD SPECIMENOrdering Facility: [facility] Address: [address] [place] [address] Performed By: #### 5 8410-2 ####[facility] LABIA [id number] [place] [address] [place] Nucleated RBC (Bld) [#/Vol] 10*3/uL Normal <0.01 [facility] Comment on above: Order Comment: Speci men Type: BLOOD SPECIMENOrdering Facility: [facility] Address: [address] [place] [address] Performed By: #### 5 8410-2 ####[facility] LABIA [id number] [place] [address] [place] Platelet mean volume (Bld) [Entitic vol] 12.3 fL Normal 9.0-12.7 [facility] Comment on above: Order Comment: Speci men Type: BLOOD SPECIMENOrdering Facility: [facility] Address: [address] [place] [address] Performed By: #### 5 8410-2 ####[facility] LABCLIA [id number] [place] [address] [place] Platelets (Bld) [#/Vol] 160 10*3/uL Normal 150-400 [facility] Comment on above: Order Comment: Speci men Type: BLOOD SPECIMENOrdering Facility: [facility] Address: [address] [place] [address] Performed By: #### 5 8410-2 ####[facility] LABCLIA [id number] [place] [address] [place] RBC (Bld) [#/Vol] 3.88 10*6/uL Low 3.90-5.[address] [facility] Comment on above: Order Comment: Speci men Type: BLOOD SPECIMENOrdering Facility: [facility] Address: [address] [place] [address] Performed By: #### 5 8410-2 ####[facility] LABIA [id number] [place] [address] [place] WBC (Bld) [#/Vol] 5.99 10*3/uL Normal 3.70-11.[address] [facility] Comment on above: Order Comment: Speci men Type: BLOOD SPECIMENOrdering Facility: [facility] Address: [address] [place] [address] Performed By: #### 5 8410-2 ####[facility] LABIA [id number] [place] [address] [place] Comprehensive metabolic 2000 panelon 12-01-2024 Albumin [Mass/Vol] 4.0 g/dL Normal 3.9-4.9 [facility] Comment on above: Order Comment: Speci men Type: BLOOD SPECIMENOrdering Facility: [facility] Address: [address] [place] [address] Performed By: #### 3 016-3, 30566-1, 60125-3, 3024-7 ####[facility] LABIA [id number] [place] [address] [place] ALP [Catalytic activity/Vol] 67 U/L Normal 34-123 [facility] Comment on above: Order Comment: Speci men Type: BLOOD SPECIMENOrdering Facility: [facility] Address: [address] [place] [address] Performed By: #### 3 016-3, 73006-2, 92143-0, 3024-7 ####[facility] LABCLIA [id number] [place] [address] [place] ALT [Catalytic activity/Vol] 19 U/L Normal 7-38 [facility] Comment on above: Order Comment: Speci men Type: BLOOD SPECIMENOrdering Facility: [facility] Address: [address] [place] [address] Performed By: #### 3 016-3, 50895-7, 49980-9, 302-7 ####[facility] LABCLIA [id number] [place] [address] [place] Anion gap [Moles/Vol] 16 mmol/L High 8-15 [facility] Comment on above: Order Comment: Speci men Type: BLOOD SPECIMENOrdering Facility: [facility] Address: [address] [place] [address] Performed By: #### 3 016-3, 10909-7, 42794-0, 302-7 ####[facility] LABCLIA [id number] [place] [address] [place] AST [Catalytic activity/Vol] 31 U/L Normal 13-35 [facility] Comment on above: Order Comment: Speci men Type: BLOOD SPECIMENOrdering Facility: [facility] Address: [address] [place] [address] Performed By: #### 3 016-3, 50231-7, 80257-7, 3027 ####[facility] LABCLIA [id number] [place] [address] [place] Bilirubin [Mass/Vol] 0.4 mg/dL Normal 0.2-1.3 [facility] Comment on above: Order Comment: Speci men Type: BLOOD SPECIMENOrdering Facility: [facility] Address: [address] [place] [address] Performed By: #### 3 016-3, 51743-0, 57065-6, 3024-7 ####[facility] LABCLIA [id number] [place] [address] [place] Calcium [Mass/Vol] 10.0 mg/dL Normal 8.5-10.2 [facility] Comment on above: Order Comment: Speci men Type: BLOOD SPECIMENOrdering Facility: [facility] Address: [address] [place] [address] Performed By: #### 3 016-3, 70154-6, 47798-5, 302-7 ####[facility] LABCLIA [id number] [place] [address] [place] Chloride [Moles/Vol] 108 mmol/L High 98-107 [facility] Comment on above: Order Comment: Speci men Type: BLOOD SPECIMENOrdering Facility: [facility] Address: [address] [place] [address] Performed By: #### 3 016-3, 04502-3, 05404-5, 302-7 ####[facility] LABCLIA [id number] [place] [address] [place] CO2 [Moles/Vol] 20 mmol/L Low 22-30 [facility] Comment on above: Order Comment: Speci men Type: BLOOD SPECIMENOrdering Facility: [facility] Address: [address] [place] [address] Performed By: #### 3 016-3, 65793-0, 27071-0, 302-7 ####[facility] LABCLIA [id number] [place] [address] [place] Creatinine [Mass/Vol] 1.11 mg/dL High 0.58-0.96 [facility] Comment on above: Order Comment: Speci men Type: BLOOD SPECIMENOrdering Facility: [facility] Address: [address] [place] [address] Performed By: #### 3 016-3, 11094-1, 10496-8, 302-7 ####[facility] LABCLIA [id number] [address] Creatinine and Glomerular filtration rate.predicted panel (S/P/Bld) 53 mL/min/1.73m??? Low >=60 [facility] Comment on above: Order Comment: Johana jarvis Type: BLOOD SPECIMENOrdering Facility: [facility] Address: [address] [place] [address] Result Comment: Elena mated Glomerular Filtration Rate [...] accurately reflect actual GFR. Performed By: #### 3 016-3, 79643-5, 65976-0, 3024-7 ####[facility] LABCLIA [id number] [address] [place] Glucose [Mass/Vol] 79 mg/dL Normal 74-99 [facility] Comment on above: Order Comment: Johana jarvis Type: BLOOD SPECIMENOrdering Facility: [facility] Address: [address] [place] [address] Result Comment: The [place] Diabetes Association (ADA) provides guidance for cutoff [...] Standards of Medical Care in Diabetes 2016, [place] Diabetes Association. Diabetes Care. 2016.39(Suppl 1). Performed By: #### 3 016-3, 60377-3, 67196-9, 3024-7 ####[facility] LABCLIA [id number] [address] [place] [address] [place] Potassium [Moles/Vol] 4.3 mmol/L Normal 3.7-5.1 [facility] Comment on above: Order Comment: Speci men Type: BLOOD SPECIMENOrdering Facility: [facility] Address: [address] [place] [address] Performed By: #### 3 016-3, 95373-1, 17399-0, 302-7 ####[facility] LABCLIA [id number] [place] [address] [place] Protein [Mass/Vol] 6.6 g/dL Normal 6.3-8.0 [facility] Comment on above: Order Comment: Speci men Type: BLOOD SPECIMENOrdering Facility: [facility] Address: [address] [place] [place] [address] Performed By: #### 3 016-3, 86217-2, 95263-9, 3027 ####[facility] LABCLIA [id number] [place] [address] [place] Sodium [Moles/Vol] 144 mmol/L Normal 136-144 [facility] Comment on above: Order Comment: Speci men Type: BLOOD SPECIMENOrdering Facility: [facility] Address: [address] [place] [place] [address] Performed By: #### 3 016-3, 54234-4, 33422-1, 3027 ####[facility] LABCLIA [id number] [place] [address] [place] Urea nitrogen [Mass/Vol] 51 mg/dL High 7-21 [facility] Comment on above: Order Comment: Speci men Type: BLOOD SPECIMENOrdering Facility: [facility] Address: [address] [place] [place] [address] Performed By: #### 3 016-3, 19935-2, 56892-3, 302-7 ####[facility] LABCLIA [id number] [place] [id number] [place] HbA1c (Bld)on 12-01-2024 Average glucose Estimated from glycated hemoglobin (Bld) [Mass/Vol] 126 mg/dL Normal [facility] Comment on above: Order Comment: Johana jarvis Type: BLOOD SPECIMENOrdering Facility: [facility] Address: [address] [place] [address] Result Comment: eAG: (Estimated average glucose) is a calculated value from HgbA1c and is food service sales representatives of the average blood glucose level in the last 2-3 month period. Performed By: #### 5 5454-3 ####[facility] LABCLIA [id number] [place] [address] [place] HbA1c (Bld) [Mass fraction] 6.0 % High 4.3-5.6 [facility] Comment on above: Order Comment: Johana jarvis Type: BLOOD SPECIMENOrdering Facility: [facility] Address: [address] [place] [address] Result Comment: [place] Diabetes Association guidelines indicate that patients with HgbA1c in the range 5.7-6.4% are at increased risk for development of diabetes, and intervention by lifestyle modification may be beneficial. HgbA1c greater or equal to 6.5% is considered diagnostic of diabetes. Performed By: #### 5 5454-3 ####[facility] LABCLIA [id number] [place] [address] [place] Lipid 1996 panelon Cholesterol [Mass/Vol] 138 mg/dL Normal <200 [facility] Comment on above: Order Comment: Johana jarvis Type: BLOOD SPECIMENOrdering Facility: [facility] Address: [address] [place] [address] Result Comment: <200 mg/dL, Desirable 200-239 mg/dL, Borderline high >239 mg/dL, High Performed By: #### 3 016-3, 13109-0, 96659-8, 3024-7 ####[facility] LABCLIA [id number] [place] [address] [place] Cholesterol in HDL [Mass/Vol] 44 mg/dL Normal >39 [facility] Comment on above: Order Comment: Speci men Type: BLOOD SPECIMENOrdering Facility: [facility] Address: [facility] [place] [address] Result Comment: 40-5 9 mg/dL, Acceptable >59 mg/dL, High: Negative risk factor for coronary heart disease <40 mg/dL, Low: Positive risk factor for coronary heart disease Performed By: #### 3 016-3, 39589-1, 79262-9, 302-7 ####[facility] LABCLIA [id number] [address] [address] [place] Cholesterol in LDL [Mass/Vol] 64 mg/dL Normal <100 [facility] Comment on above: Order Comment: Elizabethi men Type: BLOOD SPECIMENOrdering Facility: [facility] Address: [address] [place] [place] [address] Result Comment: <100 mg/dL, Optimal 100-129 mg/dL, Near optimal/above optimal 130-159 mg/dL, Borderline high 160-189 mg/dL, High >189 mg/dL, Very high Secondary prevention optimal LDL Cholesterol levels are recommended to be < 70 mg/dL Performed By: #### 3 016-3, 52442-9, 85672-1, 3023-7 ####[facility] LABCLIA [id number] [address] [address] [place] Cholesterol in LDL/Cholesterol in HDL [Mass ratio] 1.45 {ratio} Normal <2.54 [facility] Comment on above: Order Comment: Speci men Type: BLOOD SPECIMENOrdering Facility: [facility] Address: [address] [place] [address] Result Comment: Vlad oakes: 1. National Cholesterol Education Program ATP III Guideline At-A-Glance Quick Desk Reference: National Heart, Lung, and Blood [place]. National Institutes of Health. 2001: NIH Publication No. 01-3305. 2. An International Atherosclerosis Society position paper: global recommendations for the management of dyslipidemia: executive summary, Atherosclerosis. 2014: 232(2):410-413. Performed By: #### 3 016-3, 69212-1, 00458-6, 3024-05 ####[facility] LABCLIA [id number] [place] [address] [place] Cholesterol in VLDL [Mass/Vol] 30 mg/dL High <30 [facility] Comment on above: Order Comment: Speci men Type: BLOOD SPECIMENOrdering Facility: [facility] Address: [address] [place] [address] [place] [address] Performed By: #### 3 016-3, 69938-6, 86370-8, 3024-05 ####[facility] LABCLIA [id number] [place] [address] [place] Cholesterol non HDL [Mass/Vol] 94 mg/dL Normal <130 [facility] Comment on above: Order Comment: Speci men Type: BLOOD SPECIMENOrdering Facility: [facility] Address: [address] [place] [address] [place] [address] Result Comment: <130 mg/dL, Optimal 130-159 mg/dL, Near optimal/above optimal 160-189 mg/dL, Borderline high 190-219 mg/dL, High >219 mg/dL, Very high Secondary prevention optimal non HDL Cholesterol levels are recommended to be <100 mg/dL Performed By: #### 3 016-3, 66945-2, 16532-8, 3024-05 ####[facility] LABCLIA [id number] [place] [address] [place] Cholesterol.total/Chol esterol in HDL [Mass ratio] 3.14 {ratio} Normal <5.10 [facility] Comment on above: Order Comment: Speci men Type: BLOOD SPECIMENOrdering Facility: [facility] Address: [address] [place] [address] Performed By: #### 3 016-3, 69616-1, 01537-4, 3024-05 ####[facility] LABCLIA [id number] [place] [id number] [place] FASTING TIME 14 hrs Normal [facility] Comment on above: Order Comment: Speci men Type: BLOOD SPECIMENOrdering Facility: [facility] Address: [address] [place] [address] Performed By: #### 3 016-3, 21213-8, 03453-4, 7 ####[facility] LABCLIA [id number] [place] [address] [place] Triglyceride [Mass/Vol] 151 mg/dL High <150 [facility] Comment on above: Order Comment: Speci men Type: BLOOD SPECIMENOrdering Facility: [facility] Address: [address] [place] [place] [address] Result Comment: <150 mg/dL, Normal 150-199 mg/dL, Borderline high 200-499 mg/dL, High >499 mg/dL, Very high Performed By: #### 3 016-3, 79059-3, 57098-5, 3024-05 ####[facility] LABCLIA [id number] [place] [address] [place] T4 Free SerPl-mCncon 025 Free T4 [Mass/Vol] 2.0 ng/dL High 0.9-1.7 [facility] Comment on above: Order Comment: Speci men Type: BLOOD SPECIMENOrdering Facility: [facility] Address: [address] [place] [place] [address] Performed By: #### 3 016-3, 40893-8, 68868-9, 3024-05 ####[facility] LABCLIA [id number] [place] [address] [place] TSH SerPl-aCncon 12-01-2024 TSH Qn 0.005 m[IU]/L Low 0.270-4.200 [facility] Comment on above: Order Comment: Speci men Type: BLOOD SPECIMENOrdering Facility: [facility] Address: [address] [place] [place] [address] Performed By: #### 3 016-3, 13557-9, 62619-0, 3024-05 ####[facility] LABCLIA [id number] [facility]STITUTEJar[facility] AVEN[address]K [address] [id number] [place] Vit B12 [facility] -13-2 025 Cobalamin (Vitamin B12) [Mass/Vol] 1268 pg/mL High 232-1245 [facility] Comment on above: Order Comment: Speci men Type: BLOOD SPECIMENOrdering Facility: [facility] Address: [address] [place] [address] Performed By: #### 2 132-9 ####[facility] LABCLIA [id number] [facility] INSTITUTEJarad [facility]® HOSPITALK [id number] [id number] [address]ETMAN [place] CNPChandrika 09-10-2024 CNPN Telephone (FAMWS) -------- GELY FULLER ([id number]) 1950 F Date Time Provider Department 09/10/24 RISHI VASQUEZ [facility] During your visit today, we [...] out to provider. Requests call back at [phone] with provider response. GORGE Bo Jordan L, [...] Fully Assessed Reason for Visit: Patient Question [1477] Prescriptions as of 09/15/2024 - gabapentin (NEURONTIN) [...] 1 tablet by mouth once daily. - Cweaztoe-Kiva-Tmv-Folic Acid 18-0.4 mg tab Take 1 tablet [...] [L72.3, L08.9] 02/26/2019 Coronary artery disease involving conf[place] heart *05/28/2019 Abnormal urine odor [R82.90] 05/28/2019 [...] Encounter Status:Closed by SILVESTRE MARTINEZ on 09/15/24 [facility] 08-18-2024 [facility] Telephone (FAMPWS) -------- GELY FULLER ([id number]) 1950 F Date Time Provider Department 08/18/24 [facility] During your visit today, we recorded the following information about you: Silvestre Martinez MA 08/18/2024 8:48 AM Signed Pt wrote into the office via [employer] on 08/16/24 with questions regarding medications. Please [...] can take Fish Oil 1000 mg. Jesenia cMgee PA-C 08/19/2024 Leatha Long LPN 08/19/2024 2:29 PM Signed Patient notified via voice mail message. Leatha Long LPN Allergies As of Date: 08/18/2024 Noted Allergy Reaction SULFA (SULFONAMIDE ANTIBIOTICS) 01/13/2013 16 - Unknown Comments: childhood Date Reviewed: 06/04/2024 Reviewed by: Annmarie Adhikari LPN - Fully Assessed Reason for Visit: Patient Question [1586] Cmt: Fish oil - Geyser 3 Prescriptions as of 08/19/2024 - gabapentin [...] 1 tablet by mouth once daily. - Hhdlggyx-Yxlg-Gxw-Folic Acid 18-0.4 mg tab Take 1 tablet [...] [L72.3, L08.9] 02/26/2019 Coronary artery disease involving conf[place] heart *05/28/2019 Abnormal urine odor [R82.90] 05/28/2019 [...] Status:Closed by LEATHA LONG on 08/19/24 Normal [facility] CNPNon 08-08-2024 CNPN Telephone ([facility]) -------- JONNYGELY Lawrence ([id number]) 1950 F Date Time Provider Department 08/08/24 RISHI VASQUEZPJOHNY During your visit today, we [...] NAME OF THE MEDICATION IS ISCHROLBARSA. THE [employer] SAID IT IS A STEROID. WHAT [...] 1 tablet by mouth once daily. - Sjnnlsps-Ndwt-Pmo-Folic Acid 18-0.4 mg tab Take 1 tablet [...] [L72.3, L08.9] 02/26/2019 Coronary artery disease involving confederated y[place]ama heart *05/28/2019 Abnormal urine odor [R82.90] 05/28/2019 Stage 3 chronic kidney disease (HCC) [N18.30] 12/03/2019 Fatigue [R53.83] more content not included)... Normal [facility] Pelvis (Routine)on Pelvis (Routine) Normal [facility] XR Lumbar spine 3 Viewson [...] levoscoliosis DIVISION OF RADIOLOGY Provider, Rani Maharaj [facility] - 12/10/2023 * * *Final Report* [...] DESCRIBED. PROGRESSION PRIOR STUDY. NO ACUTE ABNORMALITY [employer] Act Career Manager: [facility] Transcribe Date/Time: Dec 10 2023 1:03P Dictated by : CHASE SUE MD This examination was interpreted and the report reviewed and electronically signed by: CHASE SUE MD on Dec 10 2023 1:17PM EST [facility] Radiology Study observation (narrative) [facility] XR Lumbar spine 3 ViewsOrder ed By: Ccf Provider on 12-10-2023 [facility] Anaerobic cultureOrdered By: Rishi Vasquez on 08-16-2023 Bacteria identified Anaer cx Nom (Unsp spec) No anaerobic bacteria isolated. [facility] Bacteria identified Cx Nom ( Wound)Ordered By: Rishi Vasquez on 08-16-2023 Wound Culture Meth. resistant Stap h. aureus [facility] Gram stain for investigation of transfusion reactionOrdered By: Rishi Vasquez on 08-16-2023 Microscopic observation Gram stain Nom (Unsp spec) [facility] Anaerobic cultureOrdered By: Rishi Vasquez on 07-27-2023 Bacteria identified Anaer cx Nom (Unsp spec) No anaerobic bacteria isolated. [facility] Bacteria identified Cx Nom ( Wound)Ordered By: Rishi Vasquez on 07-27-2023 Wound Culture Meth. resistant Stap h. aureus [facility] Gram stain for investigation of transfusion reactionOrdered By: Rishi Vasquez on 07-27-2023 Microscopic observation Gram stain Nom (Unsp spec) [facility] Anaerobic cultureOrdered By: Rishi aVsquez on 07-26-2023 Bacteria identified Anaer cx Nom (Unsp spec) No anaerobic bacteria isolated. [facility] Bacteria identified Cx Nom ( Wound)Ordered By: Rishi Vasquez on 07-26-2023 Wound Culture Meth. resistant Stap h. aureus [facility] Gram stain for investigation of transfusion reactionOrdered By: Rishi Vasquez on 07-26-2023 Microscopic observation Gram stain Nom (Unsp spec) [facility] ALEJANDRO DIAG W BEN RIGHTon 06-20 [facility] US BREAST LTD RIGHTon 2022 [facility] UA DIP, URINE (POC)on 2022 BILIRUBIN UA (POCT) Negative Negative [facility] CLARITY UA (POCT) Clear [facility] COLOR UA (POCT) Yellow [facility] GLUCOSE UA (POCT) Negative Negative mg/dL [facility] HEMOGLOBIN/BLOOD UA (POCT) Trace-intact Abnormal Negative [facility] KETONE UA (POCT) Negative Negative mg/dL [facility] LEUKOCYTES UA (POCT) Large Abnormal Negative [facility] NITRITE UA (POCT) Positive Abnormal Negative [facility] PH UA (POCT) 7.0 4.5 - 8.0 [facility] Protein Ql (U) 30 mg/dL Abnormal Negative mg/dL [facility] SPECIFIC GRAVITY UA (POCT) 1.015 1.005 - 1.030 [facility] UROBILINOGEN UA (POCT) 0.2 E.U./dL Jacki l E.U./dL [facility] ALEJANDRO SCREENINGon 05-29-2023 [facility] No Panel Informationon 12-29 [facility] US THYROID/PARATHYROIDon [facility] UA DIP, URINE (POC)on 2021 BILIRUBIN UA (POCT) Negative Negative [facility] CLARITY UA (POCT) Cloudy [facility] COLOR UA (POCT) Yellow [facility] GLUCOSE UA (POCT) 100 mg/dL Abnormal Negative mg/dL [facility] HEMOGLOBIN/BLOOD UA (POCT) Small Abnormal Negative [facility] KETONE UA (POCT) Negative Negative mg/dL [facility] LEUKOCYTES UA (POCT) Moderate Abnormal Negative [facility] NITRITE UA (POCT) Negative Negative [facility] PH UA (POCT) 7.0 4.5 - 8.0 [facility] Protein Ql (U) 100 mg/dL Abnormal Negative mg/dL [facility] SPECIFIC GRAVITY UA (POCT) 1.020 1.005 - 1.030 [facility] UROBILINOGEN UA (POCT) 0.2 E.U./dL Jacki l E.U./dL [facility] No Panel Informationon 08-15 Radiology Study observation (narrative) [facility] XR Sternum Lateral and right anterior obliqueon 08-15-2022 IMPRESSION: No acute osseous abnormality [employer] Career Manager: PSCAngela Transcribe Date/Time: Aug 15 2022 1:22P Dictated by : MAURICIO REYNOLDS MD This examination was interpreted and the report reviewed and electronically signed by: MAURICIO REYNOLDS MD on Aug 15 2022 1:23PM [facility] DIVISION OF RADIOLOGY * * [...] destructive osseous lesion. DIVISION OF RADIOLOGY Provider, [facility] Nicko [facility] - 08/15/2022 * * *Final Report* [...] lesion. IMPRESSION IMPRESSION: No acute osseous abnormality [employer] Career Manager: [facility] Transcribe Date/Time: Aug 15 2022 1:22P Dictated by : MAURICIO REYNOLDS MD This examination was interpreted and the report reviewed and electronically signed by: MAURICIO REYNOLDS MD on Aug 15 2022 1:23PM EST [facility] XR Sternum Lateral and right anterior obliqueOrdered By: Ccf Provider on 08-15-2022 [facility] XR Wrist - right 4 Viewson 0 08-15-2022 IMPRESSION: No acute fracture. Degenerative disease of the right wrist. [employer] Act Career Manager: [facility] Transcribe Date/Time: Aug 15 2022 1:20P Dictated by : MAURICIO REYNOLDS MD This examination was interpreted and the report reviewed and electronically signed by: MAURICIO REYNOLDS MD on Aug 15 2022 1:21PM [facility] DIVISION OF RADIOLOGY * * [...] calcifications are noted. DIVISION OF RADIOLOGY Provider, [facility] - 08/15/2022 * * *Final Report* [...] fracture. Degenerative disease of the right wrist. [employer] Act Career Manager: [facility] Transcribe Date/Time: Aug 15 2022 1:20P Dictated by : MAURICIO REYNOLDS MD This examination was interpreted and the report reviewed and electronically signed by: MAURICIO REYNOLDS MD on Aug 15 2022 1:21PM EST [facility] XR SHOULDER GENERAL 3V OR MO RE AP/TRUE AP/OTHER RIGHTon 06-17-2022 [facility] XR Shoulder - right 3 Viewso n 06-17-2022 IMPRESSION: 1. No acute fracture or dislocation. 2. Radiographic changes which can be seen in association with rotator cuff tendonopathy. [employer] Career Manager: [facility] Transcribe Date/Time: Jun 17 2022 9:43A Dictated [...] relevant examinations available for comparison within the [facility]. RESULT: 3 views of the [...] is clear. [id number] SE_DIVISION OF RADIOLOGY [facility] * * *Final Report* [...] relevant examinations available for comparison within the [facility]. RESULT: 3 views of the [...] seen in association with rotator cuff tendonopathy. [employer] Career Manager: PSCB Transcribe Date/Time: Jun 17 2022 9:43A Dictated by : JA GOMEZ MD This examination was interpreted and the report reviewed and electronically signed by: JA GOMEZ MD on Jun 17 2022 9:45AM EST [facility] Radiology Study observation (narrative) [facility] XR Shoulder - right 3 ViewsO rdered By: Ccf Provider on 06-17-2022 [facility] ALEJANDRO SCREENINGon 06-05-2022 [facility] HEMOGLOBIN A1C (POC)on 05-31 HbA1c (Bld) [Mass fraction] 6.2 % 4.2 - 5.6 % [facility] Renal function 2000 panelon 03-07-2022 Albumin [Mass/Vol] 4.1 g/dL 3.9 - 4.9 g/dL [facility] Anion gap [Moles/Vol] 14 mmol/L 9 - 18 mmol/L [facility] Calcium [Mass/Vol] 9.9 mg/dL 8.5 - 10. 2 mg/dL [facility] Chloride [Moles/Vol] 105 mmol/L 97 - 10 5 mmol/L [facility] CO2 [Moles/Vol] 23 mmol/L 22 - 30 mmol/L [facility] Creatinine [Mass/Vol] 1.29 mg/dL High 0.58 - 0.96 mg/dL [facility] Estimated Glomerular Filtration Rate 45 mL/min/1.73m Low >=60 mL/min/1.73 m [facility] Glucose [Mass/Vol] 167 mg/dL High 74 - 99 mg/dL [facility] Phosphate [Mass/Vol] 4.0 mg/dL 2.7 - 4 .8 mg/dL [facility] Potassium [Moles/Vol] 4.1 mmol/L 3.7 - 5.1 mmol/L [facility] Sodium [Moles/Vol] 142 mmol/L 136 - 144 mmol/L [facility] Urea nitrogen [Mass/Vol] 42 mg/dL High 7 - 21 mg/dL [facility] Glucose Glucometer (BldC) [M ass/Vol]on 01-20-2022 Glucose [Mass/Vol] 163 mg/dL 74-106 [facility] Work Phone: Comment on above: MANAGEMENT OF PATIEN T CARE PER NURSING PROTOCOL Office Visit: Thyroid Nodule son 08-30-2017 Dietary management education, guidance, and counseling (procedure) yes Invalid Interpretation Code [facility] Work Phone: Documentation of current medications (procedure) Done Invalid Interpretation Code [facility] Work Phone: Fall risk assessment No Invalid Interpretation Code [facility] Work Phone: Tobacco smoking status NHIS Never Invalid Interpretation Code [facility] Work Phone: Tobacco use [facility] Former smoker Invalid Interpretation Code [facility] [facility] Work Phone: Office Visiton 06-11-2017 Dietary management education, guidance, and counseling (procedure) yes Invalid Interpretation Code [facility] Work Phone: [phone] Documentation of current medications (procedure) Done Invalid Interpretation Code [facility] Work Phone: [phone] Protein mass conc Done [facility] Work Phone: [phone] Clinical Lists Update: Prelo cane flume watcher 05-30-2017 Left ventricular Ejection fraction 60 % Invalid Interpretation Code [facility] Work Phone: [phone] 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 phalanxon 05-02-2017 Dietary management education, guidance, and counseling (procedure) yes Invalid Interpretation Code [facility] Work Phone: [phone] Documentation of current medications (procedure) Done Invalid Interpretation Code [facility] Work Phone: [phone] Fall risk assessment No Invalid Interpretation Code [facility] Work Phone: Protein mass conc Done [facility] Work Phone: Tobacco smoking status NYIS Never Invalid Interpretation Code [facility] Work Phone: Tobacco smoking status [facility] Former smoker [facility] Work Phone: Tobacco use [facility] Former smoker Invalid Interpretation Code [facility] Work Phone: [phone] Office Visiton 04-23-2017 Protein mass conc Done [facility] Work Phone: Lab Report: CRPon 02-21-2017 CRP [Mass/Vol] mg/L Invalid Interpretation Code 0.0-3.0 [facility] Work Phone: Lab Report: Erythrocyte Sed Rateon 02-21-2017 ESR (Bld) [Velocity] 40 mm/h High 0-[address] [facility] Work Phone: Lab Report: Thyroid Peroxida se ABon 02-08-2017 TPO Ab JOSEPH Qn 13 Invalid Interpretation Code 0-34 [facility] Work Phone: Lab Report: Free T3on 2016 Free T3 [Mass/Vol] 3.5 pg/mL Invalid Interpretation Code 2.18-3.98 [facility] Work Phone: Lab Report: T4 [...] Interpretation Code [facility] Work Phone: [phone] Adult depression screening assessment Adolescent depression screening assessment Invalid Interpretation Code [facility] Work Phone: Fall risk assessment No [facility] Work Phone: Tobacco smoking status NHIS Never [facility] Work Phone: Tobacco smoking status NHIS Former smoker [facility] Work Phone: Microbiology: Culture, Wound on 01-28-2017 CUW Trimethoprim/Sulfame tho $ <=20 S Invalid Interpretation Code [facility] Work Phone: wound culture Trimethoprim/Sulfame tho $ <=20 S Invalid Interpretation Code [facility] Work Phone: [phone] Clinical Lists Update: Prelo cane flume watcher 01-15-2017 Cholesterol 164 mg/dL Invalid Interpretation Code [facility] Work Phone: [phone] Cholesterol to HDL Ratio 2.98 {ratio} Invalid Interpretation Code [facility] Work Phone: [phone] HDL Cholesterol 55 mg/dL Low [facility] Work Phone: [phone] Cholesterol 67 mg/dL Invalid Interpretation Code [facility] Work Phone: [phone] LDL/HDL ratio, serum 1.22 Invalid Interpretation Code [facility] Work Phone: [phone] Triglyceride 210 mg/dL High [facility] Work Phone: [phone] very low density lipoproteins 42 mg/dL High [facility] Work Phone: [phone] Lab Report: Basic Metabolic Profile (BMP)on 01-12-2017 Anion gap 8 mmol/L Invalid Interpretation Code 5-15 [facility] Work Phone: [phone] Anion gap [Moles/Vol] 8 mmol/L 5-15 [facility] Work Phone: [phone] Calcium [Mass/Vol] 9.0 mg/dL Invalid Interpretation Code 8.5-10.1 [facility] Work Phone: [phone] Chloride [Moles/Vol] 105 mmol/L Invalid Interpretation Code 98-107 [facility] Work Phone: [phone] CO2 26.0 mmol/L Invalid Interpretation Code 21.0-32.0 [facility] Work Phone: [phone] CO2 (BldV) [Partial pressure] 26.0 mmol/L 21.0-32.0 [facility] Work Phone: [phone] Creatinine [Mass/Vol] 1.63 mg/dL High 0.55-1.02 [facility] Work Phone: [phone] eGFR (non-black) 41 mL/min/{1.73_m2} Low >60 [facility] Work Phone: [phone] EST GFR - AA 41 mL/min Low >60 [facility] Work Phone: [phone] GFR/1.73 sq M predicted among non-blacks MDRD (S/P/Bld) [Vol rate/Area] 34 mL/min/{1.73_m2} Low >60 [facility] Work Phone: [phone] Glucose 210 mg/dL High 70-110 [facility] Work Phone: [phone] Glucose [Mass/Vol] 210 mg/dL High 70-110 [facility] Work Phone: [phone] Potassium [Moles/Vol] 4.6 mmol/L Invalid Interpretation Code 3.5-5.1 [facility] Work Phone: [phone] Sodium [Moles/Vol] 139 mmol/L Invalid Interpretation Code 136-145 [facility] Work Phone: Urea nitrogen [Mass/Vol] 53 mg/dL High 7-18 [facility] Work Phone: Urea nitrogen/Creatinine [Mass ratio] 32.5 RATIO High 10-20 [facility] Work Phone: Replaced Document: (P) CBC W /Diff, Automatedon 01-12-2017 Absolute Neut 3.7 X10 3/UL Invalid Interpretation Code 2.0-7.7 [facility] Work Phone: Basophils/100 leukocytes 1.2 % High 0-1 [facility] Work Phone: Basophils/100 WBC (Bld) 1.2 % High 0-1 [facility] Work Phone: Eosinophils/100 leukocytes 8.4 % High 0-5 [facility] Work Phone: Eosinophils/100 WBC (Bld) 8.4 % High 0-5 [facility] Work Phone: [phone] Erythrocyte distribution width (RBC) [Ratio] 44.7 fL High 35.1-43.9 [facility] Work Phone: Erythrocyte distribution width (RBC) [Ratio] 13.9 % 11.6-14.6 [facility] Work Phone: Erythrocytes (RBC) 4.04 10*6/uL Low 4.2-5.[address] [facility] Work Phone: Hematocrit (Bld) [Volume fraction] 36.0 % Low 37-47 [facility] Work Phone: Hematocrit (HCT) 36.0 % Low 37-47 [facility] Work Phone: Hemoglobin (Bld) [Mass/Vol] 11.6 g/dL Low 12.0-15.0 [facility] Work Phone: Immature granulocytes (Bld) [#/Vol] 0.200 % 0.0-0.9 [facility] Work Phone: immature granulocytes, percentage of total cells, blood 0.200 % Invalid Interpretation Code 0.0-0.9 [facility] Work Phone: Immature granulocytes/100 WBC (Bld) 0.200 % Invalid Interpretation Code 0.0-0.9 [facility] Work Phone: Lymphocytes 1.53 X10 3/UL Invalid Interpretation Code 0.83-4.51 [facility] Work Phone: Lymphocytes (Bld) [#/Vol] 1.53 X10 3/UL 0.83-4.51 [facility] Work Phone: Lymphocytes/100 leukocytes 23.3 % Invalid Interpretation Code 19-41 [facility] Work Phone: [phone] Lymphocytes/100 WBC (Bld) 23.3 % 19-41 [facility] Work Phone: MCH 28.7 pg Invalid Interpretation Code 27.0-32.0 [facility] Work Phone: [phone] MCH (RBC) [Entitic mass] 28.7 pg 27.0-32.0 [facility] Work Phone: MCHC 32.2 G/GL Invalid Interpretation Code 32-36 [facility] Work Phone: MCHC (RBC) [Mass/Vol] 32.2 G/GL 32-36 [facility] Work Phone: MCV 89.1 fL Invalid Interpretation Code 81-99 [facility] Work Phone: MCV (RBC) [Entitic vol] 89.1 fL 81-99 [facility] Work Phone: Monocytes/100 leukocytes 10.5 % High 0-10 [facility] Work Phone: Monocytes/100 WBC (Bld) 10.5 % High 0-10 [facility] Work Phone: neutrophil count, blood 3.7 X10 3/UL Invalid Interpretation Code 2.0-7.7 [facility] Work Phone: Neutrophils (Bld) [#/Vol] 3.7 X10 3/UL 2.0-7.7 [facility] Work Phone: Neutrophils/100 leukocytes 56.4 % Invalid Interpretation Code 47-70 [facility] Work Phone: Neutrophils/100 WBC (Bld) 56.4 % 47-70 [facility] Work Phone: Platelet mean volume (Bld) [Entitic vol] 10.4 fL 6.2-12.0 [facility] Work Phone: Platelets 239 10*3/mm3 Invalid Interpretation Code 150-450 [facility] Work Phone: Platelets (Bld) [#/Vol] 239 10*3/mm3 150-450 [facility] Work Phone: PMV by Stevo 10.4 fL Invalid Interpretation Code 6.2-12.0 [facility] Work Phone: [phone] RBC (Bld) [#/Vol] 4.04 10*6/uL Low 4.2-5.4 [facility] Work Phone: RDW SD 44.7 fL High 35.1-43.9 [facility] Work Phone: RDW-CA 13.9 % Invalid Interpretation Code 11.6-14.6 [facility] Work Phone: red blood cell distribution width, size density 44.7 fL High 35.1-43.9 [facility] Work Phone: WBC (Bld) [#/Vol] 6.6 10*3/uL 4.4-11.0 [facility] Work Phone: WBC (Leukocytes) 6.6 10*3/uL Invalid Interpretation Code 4.4-11.0 [facility] Work Phone: Lab Report: MRSA Wound DNA b y PCRon 01-04-2017 GE use only - for [employer] import when terms are not otherwise specified Positive High Negative [facility] Work Phone: [phone] INR Coag (Bld) [Relative time] Positive High Negative [facility] Work Phone: SA RESULT Positive High Negative [facility] Work Phone: Office Visit: Thyroid evalua hunter 12-20-2016 Colonoscopy (procedure) Colonoscopy (procedure) Invalid Interpretation Code [facility] Work Phone: [phone] Protein mass conc Colonoscopy (procedure) [facility] Work Phone: [phone] Lab Report: CBC W/Diff, Auto matedon 12-13-2016 Anisocytosis presence RARE Invalid Interpretation Code [facility] Work Phone: [phone] Anisocytosis Ql (Bld) RARE [facility] Work Phone: complete blood count (CBC), comments . Invalid Interpretation Code [facility] Work Phone: [phone] Pathologist Cyto stain Nom (Cvx/Vag) [ID] May foll Invalid Interpretation Code [facility] Work Phone: Platelets LM Ql (Bld) ADEQUATE Invalid Interpretation Code ADEQ [facility] Work Phone: SMEAR COMMENT . Invalid Interpretation Code [facility] Work Phone: Lab Report: IgG Subclasseson 12-02-2016 IgG subclass 1 (S) [Mass/Vol] 392 mg/dL Low 422-1292 [facility] Work Phone: [phone] IgG subclass 2 (S) [Mass/Vol] 216 mg/dL Invalid Interpretation Code 117-747 [facility] Work Phone: IgG subclass 3 (S) [Mass/Vol] 42 mg/dL Invalid Interpretation Code 41-129 [facility] Work Phone: [phone] IgG subclass 4 (S) [Mass/Vol] 9 mg/dL Invalid Interpretation Code 1-291 [facility] Work Phone: Office Visit: day 7 of Cefta raline (mrsa, enterobacter, actinomyces)on 11-22-2016 Adult depression screening assessment Adult depression screening assessment Invalid Interpretation Code [facility] Work Phone: [phone] PHQ-9 quick depression assessment panel [Reported.PHQ] Adult depression screening assessment [facility] Work Phone: Lab Report: GEGE + Protein El ect, Serumon 11-21-2016 Albumin [Mass/Vol] 2.5 g/dL Low 2.9-4.4 [facility] Work Phone: Albumin/Globulin [Mass ratio] 0.9 {ratio} Invalid Interpretation Code 0.7-1.7 [facility] Work Phone: Alpha 2 globulin Elph [Mass/Vol] 1.1 g/dL High 0.4-1.0 [facility] Work Phone: UOZNS-3-WVHF 0.3 g/dL Invalid Interpretation Code 0.0-0.4 [facility] Work Phone: BETA GLOBULIN 0.9 g/dL Invalid Interpretation Code 0.7-1.3 [facility] Work Phone: Gamma globulin Elph [Mass/Vol] 600 mg/dL Invalid Interpretation Code Units converted. See lab report for original value. [facility] Work Phone: Globulin 2.9 g/dL Invalid Interpretation Code 2.2-3.9 [facility] Work Phone: [phone] Globulin 0.9 g/dL Invalid Interpretation Code 0.7-1.3 [facility] Work Phone: [phone] Globulin 0.3 g/dL Invalid Interpretation Code 0.0-0.4 [facility] Work Phone: [phone] Globulin (S) [Mass/Vol] 2.9 g/dL 2.2-3.9 [facility] Work Phone: GEGE RESULT,S Comment Invalid Interpretation Code . [facility] Work Phone: IgA [Mass/Vol] 249 mg/dL Invalid Interpretation Code 87-352 [facility] Work Phone: [phone] IgG [Mass/Vol] 584 mg/dL Low 700-1600 [facility] Work Phone: [phone] IgM [Mass/Vol] 40 mg/dL Invalid Interpretation Code 26-217 [facility] Work Phone: [phone] lab comments Comment Invalid Interpretation Code . [facility] Work Phone: [phone] M-SPIKE . g/dL Invalid Interpretation Code [facility] Work Phone: [phone] MONOCLONAL PROTEIN . g/dL Invalid Interpretation Code [facility] Work Phone: [phone] NOTE: Comment Invalid Interpretation Code . [facility] Work Phone: [phone] Protein [Mass/Vol] 5.4 g/dL Low 6.0-8.5 [facility] Work Phone: [phone] Protein mass conc Comment . [facility] Work Phone: [phone] serum protein electrophoresis, interpretation/comment Comment Invalid Interpretation Code . [facility] Work Phone: [phone] Lab Report: Bedside Glucoseo n 11-18-2016 Glucose 352 mg/dL High 70-110 [facility] Work Phone: [phone] Glucose [Mass/Vol] 352 mg/dL High 70-110 [facility] Work Phone: [phone] Microbiology: Fungus Stainon 11-18-2016 fungus stain . Invalid Interpretation Code [facility] Work Phone: [phone] FUNST . Invalid Interpretation Code [facility] Work Phone: [phone] Lab Report: Basic Metabolic Profile (BMP)on 11-17-2016 Creatinine 45.87 mL/min Invalid Interpretation Code [facility] Work Phone: [phone] Lab Report: Iron+Iron Bindin g Capacityon 11-17-2016 Iron [Mass/Vol] 32 ug/dL Low 50-170 [facility] Work Phone: [phone] Iron binding capacity [Mass/Vol] 223 ug/dL Low 250-450 [facility] Work Phone: [phone] Iron saturation [Mass fraction] 14.3 % Low [...] Code 45-117 [facility] Work Phone: [phone] ALP (Bld) [Catalytic activity/Vol] 56 U/L 45-117 [facility] Work Phone: ALT [Catalytic activity/Vol] 14 U/L Invalid Interpretation Code 12-78 [facility] Work Phone: AST [Catalytic activity/Vol] 13 U/L Low 15-37 [facility] Work Phone: Bilirubin [Mass/Vol] 0.20 mg/dL Invalid Interpretation Code 0.20-1.00 [facility] Work Phone: Protein [Mass/Vol] 6.9 g/dL Invalid Interpretation Code 6.4-8.2 [facility] Work Phone: Lab Report: Prealbuminon Prealbumin 12.9 mg/dL Low 20.0-40.0 [facility] Work Phone: [phone] Prealbumin Elph [Mass/Vol] 12.9 mg/dL Low 20.0-40.0 [facility] Work Phone: Lab Report: Vancomycin, Trou gh Levelon 10-09-2016 Vancomycin trough [Mass/Vol] 18.7 ug/mL High 5.0-15.0 [facility] Work Phone: Lab Report: Magnesiumon 08-19 Magnesium [Mass/Vol] 2.3 mg/dL Invalid Interpretation Code 1.8-2.4 [facility] Work Phone: Lab Report: Phosphoruson PHOS 3.8 mg/dL Invalid Interpretation Code 2.5-4.9 [facility] Work Phone: Phosphate [Mass/Vol] 3.8 mg/dL 2.5-4.[address] [facility] Work Phone: Phosphorus Concentratation-Random 3.8 mg/dL Invalid Interpretation Code 2.5-4.9 [facility] Work Phone: Lab Report: Liver [...] by coagulation 1.2 {INR} Invalid Interpretation Code [facility] Work Phone: PT Coag (PPP) [Time] 14.8 s Invalid Interpretation Code 11.7-14.9 [facility] Work Phone: Office Visit: Thyroid evalua tionon 04-19-2016 MG Breast screening Normal Bilateral Invalid Interpretation Code [facility] Work Phone: Clinical Lists Update: Prelo cane flume watcher 06-23-2015 PT Coag (PPP) [Time] 9.1 s Invalid Interpretation Code [facility] Work Phone: Office Visiton 05-25-2015 Protein mass conc yes [facility] Work Phone: Smoking cessation education (procedure) yes Invalid Interpretation Code [facility] Work Phone: [phone] Replaced Document: [facility] E CG Observationson 05-25-2015 EKG QRS axis -36 deg Invalid Interpretation Code [facility] Work Phone: electrocardiogram interpretation Sinus Bradycardia -Left axis. ABNORMAL Invalid Interpretation Code [facility] Work Phone: Interpretation Sinus Bradycardia -L eft axis. ABNORMAL Invalid Interpretation Code [facility] Work Phone: P [place] 39 deg Invalid Interpretation Code [facility] Work Phone: P wave axis, electrocardiogram 39 deg Invalid Interpretation Code [facility] Work Phone: IN Interval 154 ms Invalid Interpretation Code [facility] Work Phone: IN interval, electrocardiogram 154 ms Invalid Interpretation Code [facility] Work Phone: Pulse (Heart Rate) 55 /min Invalid Interpretation Code [facility] Work Phone: QRS axis, electrocardiogram -36 deg Invalid Interpretation Code [facility] Work Phone: QRS Duration 104 ms Invalid Interpretation Code [facility] Work Phone: QRS duration, electrocardiogram 104 ms Invalid Interpretation Code [facility] Work Phone: QT Interval new path ms Invalid Interpretation Code [facility] Work Phone: QT interval, electrocardiogram new path ms Invalid Interpretation Code [facility] Work Phone: T [place] 31 deg Invalid Interpretation Code [facility] Work Phone: T wave axis, electrocardiogram 31 deg Invalid Interpretation Code [facility] Work Phone: Office Visiton 02-22-2015 Cholesterol [Mass/Vol] 164 mg/dL [facility] Work Phone: Cholesterol in HDL [Mass/Vol] 57 mg/dL [facility] Work Phone: Cholesterol in LDL [Mass/Vol] 76 mg/dL [facility] Work Phone: Triglyceride [Mass/Vol] 155 mg/dL [facility] Work Phone: Clinical Lists Update: Prelo cane flume watcher 02-09-2015 Free T4 index Calc [Mass/Vol] 10.2 Invalid Interpretation Code [facility] Work Phone: T4 [Mass/Vol] 9.9 ug/dL Invalid Interpretation Code [facility] Work Phone: Throyxin (T4) Free 10.2 ng/dL Invalid Interpretation Code [facility] Work Phone: Office Visiton 12-29-2014 cardiac risk group C Invalid Interpretation Code [facility] Work Phone: General cardiovascular disease 10Y risk [#] [place].D'Agostino N/A Invalid Interpretation Code [facility] Work Phone: Clinical Lists Update: Prelo cane flume watcher 11-18-2014 Cholesterol in LDL/Cholesterol in HDL [Mass ratio] 2.06 [facility] [employer] Work Phone: Cholesterol.total/Chol esterol in HDL [Mass ratio] 3.56 {ratio} [facility] [employer] Work Phone: Lipoprotein.pre-beta [Mass/Vol] 32 mg/dL [facility] [employer] Work Phone: Replaced Document: [employer] E CG Observationson 01-12-2014 Pulse (Heart Rate) 406 ms Invalid Interpretation Code [facility] Work Phone: Office Visit: Thyroid evalua tionon 01-17-2013 General categories Cyto stain (Cvx/Vag) [Interp] Normal Invalid Interpretation Code [facility] Work Phone: Vital Signs Date Time Vital Sign Value Performing Clinician Facility 07-09-2025 14:07-0400 Heart rate 67 /min Dr. Rishi Vasquez DO Work Phone: [facility] 07-09-2025 14:07-0400 Respiratory rate 17 /min Dr. Rishi Vasquez DO Work Phone: [facility] 07-09-2025 14:07-0400 SaO2% (BldA) [Mass fraction] 99 % Dr. Rishi Vasquez DO Work Phone: [facility] 07-09-2025 13:00-0400 Body temperature 97.2 [degF] Dr. Rishi Vasquez DO Work Phone: 5([phone])450-150272 [place] [address] 07-09-2025 13:00-0400 Diastolic blood pressure 51 mm[Hg] Dr. Rishi Vasquez DO Work Phone: 9(004)869-299372 [place] [address] 07-09-2025 13:00-0400 Systolic blood pressure 143 mm[Hg] Dr. Rishi Vasquez DO Work Phone: 8(999)190-258772 [place] [address] 07-09-2025 08:33-0400 Body height 167.[address] Rishi Vasquez DO Work Phone: 5(074)265-305572 [place] [address] 07-09-2025 08:33-0400 Body mass index (BMI) [Ratio] 29.3 kg/m2 Dr. Rishi Vasquez DO Work Phone: 3(595)014-376072 [place] [address] 07-09-2025 08:33-0400 Body weight 82.[address] Rishi Vasquez DO Work Phone: 3(929)583-787272 [place] [address] 06-30-2025 10:30-0400 Body temperature 97 [degF] Dr. Rishi Vasquez DO Work Phone: 7(985)810-178972 [place] [address] 06-30-2025 10:30-0400 Diastolic blood pressure 60 mm[Hg] Dr. Rishi Vasquez DO Work Phone: 2(054)083-929072 [place] [address] 06-30-2025 10:30-0400 Heart rate 63 /min Dr. Rishi Vasquez DO Work Phone: 8(286)186-626672 [place] [address] 06-30-2025 10:30-0400 Respiratory rate 16 /min Dr. Rishi Vasquez DO Work Phone: 6(949)404-077772 [place] [address] 06-30-2025 10:30-0400 SaO2% (BldA) [Mass fraction] 94 % Dr. Rishi Vasquez DO Work Phone: 5(230)171-734272 [place] [address] 06-30-2025 10:30-0400 Systolic blood pressure 143 mm[Hg] Dr. Rishi Vasquez DO Work Phone: 3(841)177-790972 [place] [address] 06-30-2025 10:00-0400 Inhaled oxygen flow rate 2 L/min Dr. Rishi Vasquez DO Work Phone: 8(556)307-178572 [place] [address] 06-30-2025 06:09-0400 Body height 167.[address] Rishi Vasquez DO Work Phone: 8(257)121-917072 [place] [address] 06-30-2025 06:09-0400 Body mass index (BMI) [Ratio] 28.1 kg/m2 Dr. Rishi Vasquez DO Work Phone: 3(335)880-248272 [place] [address] 06-30-2025 06:09-0400 Body weight 79.[address] Rishi Vasquez DO Work Phone: 4(169)227-161472 [place] [address] 06-30-2025 05:22-0400 Body temperature 97.7 [degF] Dr. Rishi Vasquez DO Work Phone: 7(366)092-580872 [place] [address] 06-30-2025 05:22-0400 Body weight 79.[address] Rishi Vasquez DO Work Phone: 1(388)830-419472 [place] [address] 06-30-2025 05:22-0400 Diastolic blood pressure 58 mm[Hg] Dr. Rishi Vasquez DO Work Phone: 8(973)747-208272 [place] [address] 06-30-2025 05:22-0400 Heart rate 52 /min Dr. Rishi Vasquez DO Work Phone: 0(518)127-165772 [place] [address] 06-30-2025 05:22-0400 Respiratory rate 16 /min Dr. Rishi Vasquez DO Work Phone: 2(216)148-407772 [place] [address] 06-30-2025 05:22-0400 SaO2% (BldA) [Mass fraction] 96 % Dr. Rishi Vasquez DO Work Phone: 4(236)348-017972 [place] [address] 06-30-2025 05:22-0400 Systolic blood pressure 149 mm[Hg] Dr. Rishi Vasquez DO Work Phone: 3(364)665-945672 [place] [address] 06-24-2025 16:40-0400 Body height 167.[address] Rishi Vasquez DO Work Phone: 8(017)417-486772 [place] [address] 06-23-2025 06:00-0400 Body mass index (BMI) [Ratio] 28.1 kg/m2 Dr. Rishi Vasquez DO Work Phone: 8(792)250-170272 [place] [address] 06-18-2025 09:29-0400 Diastolic blood pressure 59 mm[Hg] Dr. Rishi Vasquez DO Work Phone: 2(190)213-385372 [place] [address] 06-18-2025 09:29-0400 Heart rate 57 /min Dr. Rishi Vasquez DO Work Phone: 0(876)893-330772 [place] [address] 06-18-2025 09:29-0400 Systolic blood pressure 179 mm[Hg] Dr. Rishi Vasquez DO Work Phone: 0(578)211-940172 [place] [address] 06-18-2025 09:28-0400 Body temperature 98.1 [degF] Dr. Rishi Vasquez DO Work Phone: 9(776)368-673372 [place] [address] 06-18-2025 09:28-0400 Respiratory rate 18 /min Dr. Rishi Vasquez DO Work Phone: 9(316)339-271972 [place] [address] 06-18-2025 09:28-0400 SaO2% (BldA) [Mass fraction] 99 % Dr. Rishi Vasquez DO Work Phone: 1(182)987-627772 [place] [address] 06-18-2025 06:29-0400 Body mass index (BMI) [Ratio] 28.6 kg/m2 Dr. Rishi Vasquez DO Work Phone: 7(010)584-892972 [place] [address] 06-18-2025 06:29-0400 Body weight 80.[address] Rishi Vasquez DO Work Phone: 6(009)750-695672 [place] [address] 06-17-2025 15:37-0400 Body height 167.[address] Rishi Vasquez DO Work Phone: 2(679)789-096772 [place] [address] 06-16-2025 17:29-0400 Body temperature 97.7 [degF] Dr. Rishi Vasquez DO Work Phone: 6(765)720-481272 [place] [address] 06-16-2025 17:29-0400 Diastolic blood pressure 53 mm[Hg] Dr. Rishi Vasquez DO Work Phone: 5(691)179-006479 [place] [address] 06-16-2025 17:29-0400 Heart rate 51 /min Dr. Rishi Vasquez DO Work Phone: 3(414)408-101872 [place] [address] 06-16-2025 17:29-0400 Respiratory rate 16 /min Dr. Rishi Vasquez DO Work Phone: 8(830)807-657472 [place] [address] 06-16-2025 17:29-0400 SaO2% (BldA) [Mass fraction] 94 % Dr. Rishi Vasquez DO Work Phone: 3(048)157-253272 [place] [address] 06-16-2025 17:29-0400 Systolic blood pressure 141 mm[Hg] Dr. Rishi Vasquez DO Work Phone: 9(353)029-174772 [place] [address] 06-16-2025 16:42-0400 Body temperature 96.6 [degF] Dr. Rishi Vasquez DO Work Phone: 1(501)197-798372 [place] [address] 06-16-2025 16:42-0400 Diastolic blood pressure 51 mm[Hg] Dr. Rishi Vasquez DO Work Phone: 0(129)200-739172 [place] [address] 06-16-2025 16:42-0400 Heart rate 50 /min Dr. Rishi Vasquez DO Work Phone: 0(561)502-540672 [place] [address] 06-16-2025 16:42-0400 Respiratory rate 16 /min Dr. Rishi Vasquez DO Work Phone: 5(901)228-454772 [place] [address] 06-16-2025 16:42-0400 SaO2% (BldA) [Mass fraction] 99 % Dr. Rishi Vasquez DO Work Phone: 2(482)150-152272 [place] [address] 06-16-2025 16:42-0400 Systolic blood pressure 141 mm[Hg] Dr. Rishi Vasquez DO Work Phone: 4(051)134-232672 [place] [address] 06-16-2025 13:22-0400 Body mass index (BMI) [Ratio] 28.3 kg/m2 Dr. Rishi Vasquez DO Work Phone: 2(883)872-790772 [place] [address] 06-16-2025 13:22-0400 Body weight 79.[address] Rishi Vasquez DO Work Phone: 6(875)409-890672 [place] [address] 06-11-2025 14:54-0400 Body temperature 98.1 [degF] Dr. Rishi Vasquez DO Work Phone: 0(935)844-025072 [place] [address] 06-11-2025 14:54-0400 Diastolic blood pressure 45 mm[Hg] Dr. Rishi Vasquez DO Work Phone: 2(047)813-001872 [place] [address] 06-11-2025 14:54-0400 Heart rate 48 /min Dr. Rishi Vasquez DO Work Phone: 5(816)243-717972 [place] [address] 06-11-2025 14:54-0400 Respiratory rate 16 /min Dr. Rishi Vasquez DO Work Phone: 3(266)668-303172 [place] [address] 06-11-2025 14:54-0400 SaO2% (BldA) [Mass fraction] 100 % Dr. Rishi Vasquez DO Work Phone: 2(354)031-872372 [place] [address] 06-11-2025 14:54-0400 Systolic blood pressure 109 mm[Hg] Dr. Rishi Vasquez DO Work Phone: 9(901)725-840272 [place] [address] 06-11-2025 08:47-0400 Body height 167.[address] Rishi Vasquez DO Work Phone: 8(830)980-568972 [place] [address] 06-11-2025 08:47-0400 Body mass index (BMI) [Ratio] 27.6 kg/m2 Dr. Rishi Vasquez DO Work Phone: 1(687)880-925572 [place] [address] 06-11-2025 08:47-0400 Body weight 77.[address] Rishi Vasquez DO Work Phone: 5(087)196-929872 [place] [address] 06-11-2025 08:07-0400 Body temperature 100.2 [degF] Dr. Rishi Vasquez DO Work Phone: 2(081)679-710072 [place] [address] 06-11-2025 08:07-0400 Diastolic blood pressure 42 mm[Hg] Dr. Rishi Vasquez DO Work Phone: 1(562)045-186772 [place] [address] 06-11-2025 08:07-0400 Heart rate 54 /min Dr. Rishi Vasquez DO Work Phone: 4(702)835-234972 [place] [address] 06-11-2025 08:07-0400 Respiratory rate 14 /min Dr. Rishi Vasquez DO Work Phone: 9(715)842-770872 [place] [address] 06-11-2025 08:07-0400 SaO2% (BldA) [Mass fraction] 91 % Dr. Rishi Vasquez DO Work Phone: 3(727)294-309372 [place] [address] 06-11-2025 08:07-0400 Systolic blood pressure 98 mm[Hg] Dr. Rishi Vasquez DO Work Phone: 3(664)591-540372 [place] [address] 06-10-2025 14:42-0400 Body weight 73.[address] Rishi Vasquez DO Work Phone: 1(756)476-171172 [place] [address] 06-09-2025 14:15-0400 Body mass index (BMI) [Ratio] 26 kg/m2 Dr. Rishi Vasquez DO Work Phone: 5(434)357-274372 [place] [address] 06-09-2025 09:32-0400 Body temperature 98.2 [degF] Dr. Rishi Vasquez DO Work Phone: 1(376)220-595772 [place] [address] 06-09-2025 09:32-0400 Body weight 73.[address] Rishi Vasquez DO Work Phone: 2(343)684-013572 [place] [address] 06-09-2025 09:32-0400 Diastolic blood pressure 57 mm[Hg] Dr. Rishi Vasquez DO Work Phone: 7(790)505-017772 [place] [address] 06-09-2025 09:32-0400 Heart rate 77 /min Dr. Rishi Vasquez DO Work Phone: 7(596)216-651372 [place] [address] 06-09-2025 09:32-0400 Respiratory rate 14 /min Dr. Rishi Vasquez DO Work Phone: 1(165)932-416472 [place] [address] 06-09-2025 09:32-0400 Systolic blood pressure 140 mm[Hg] Dr. Rishi Vasquez DO Work Phone: 9(287)179-175372 [place] [address] 06-09-2025 08:42-0400 Heart rate 75 /min Dr. Rishi Vasquez DO Work Phone: 3(883)477-769279 [place] [address] 06-09-2025 08:38-0400 Body temperature 98.4 [degF] Dr. Rishi Vasquez DO Work Phone: 1(199)704-880672 [place] [address] 06-09-2025 08:38-0400 Diastolic blood pressure 58 mm[Hg] Dr. Rishi Vasquez DO Work Phone: 4(646)183-201372 [place] [address] 06-09-2025 08:38-0400 Respiratory rate 17 /min Dr. Rishi Vasquez DO Work Phone: 3(140)309-621372 [place] [address] 06-09-2025 08:38-0400 SaO2% (BldA) [Mass fraction] 99 % Dr. Rishi Vasquez DO Work Phone: 8(222)613-428572 [place] [address] 06-09-2025 08:38-0400 Systolic blood pressure 120 mm[Hg] Dr. Rishi Vasquez DO Work Phone: 7(312)806-930672 [place] [address] 06-08-2025 10:27-0400 Body height 167.[address] Rishi Vasquez DO Work Phone: 3(388)522-645172 [place] [address] 06-08-2025 10:27-0400 Body weight 73.[address] Rishi Vasquez DO Work Phone: 1(949)626-116272 [place] [address] 06-07-2025 21:20-0400 Heart rate 58 /min Dr. Rishi Vasquez DO Work Phone: 2(638)205-175079 [place] [address] 06-07-2025 21:20-0400 Respiratory rate 16 /min Dr. Rishi Vasquez DO Work Phone: 3(311)334-369879 [place] [address] 06-07-2025 21:20-0400 SaO2% (BldA) [Mass fraction] 94 % Dr. Rishi Vasquez DO Work Phone: 5(948)311-147772 [place] [address] 06-07-2025 09:22-0400 Diastolic blood pressure 43 mm[Hg] Dr. Rishi Vasquez DO Work Phone: 7(466)762-834972 [place] [address] 06-07-2025 09:22-0400 Systolic blood pressure 94 mm[Hg] Dr. Rishi Vasquez DO Work Phone: 1(630)694-230772 [place] [address] 06-07-2025 09:18-0400 Body temperature 97.7 [degF] Dr. Rishi Vasquez DO Work Phone: 7(620)897-498472 [place] [address] 06-05-2025 19:00-0400 Body temperature 97.3 [degF] Dr. Rishi Vasquez DO Work Phone: 5(049)827-766372 [place] [address] 06-05-2025 19:00-0400 Diastolic blood pressure 52 mm[Hg] Dr. Rishi Vasquez DO Work Phone: 4(055)324-221172 [place] [address] 06-05-2025 19:00-0400 Heart rate 63 /min Dr. Rishi Vasquez DO Work Phone: 3(921)673-081672 [place] [address] 06-05-2025 19:00-0400 Respiratory rate 16 /min Dr. Rishi Vasquez DO Work Phone: 4(279)185-652672 [place] [address] 06-05-2025 19:00-0400 SaO2% (BldA) [Mass fraction] 100 % Dr. Rishi Vasquez DO Work Phone: 1(013)017-654472 [place] [address] 06-05-2025 19:00-0400 Systolic blood pressure 140 mm[Hg] Dr. Rishi Vasquez DO Work Phone: 6(877)767-880472 [place] [address] 06-05-2025 17:32-0400 Body height 167.[address] Rishi Vasquez DO Work Phone: 3(605)624-353472 [place] [address] 06-05-2025 17:32-0400 Body mass index (BMI) [Ratio] 26.1 kg/m2 Dr. Rishi Vasquez DO Work Phone: 0(933)218-910372 [place] [address] 06-05-2025 17:32-0400 Body weight 73.[address] Rishi Vasquez DO Work Phone: 3(163)419-771772 [place] [address] 06-05-2025 16:27-0400 Body weight 73.[address] Rishi Vasquez DO Work Phone: 4(976)986-368972 [place] [address] 06-03-2025 18:27-0400 Body mass index (BMI) [Ratio] 26.2 kg/m2 Dr. Rishi Vasquez DO Work Phone: 0(335)852-703272 [place] [address] 06-01-2025 15:00-0400 Body temperature 98.1 [degF] Dr. Rishi Vasquez DO Work Phone: 0(664)371-067272 [place] [address] 06-01-2025 15:00-0400 Diastolic blood pressure 56 mm[Hg] Dr. Rishi Vasquez DO Work Phone: 1(836)496-587872 [place] [address] 06-01-2025 15:00-0400 Heart rate 68 /min Dr. Rishi Vasquez DO Work Phone: 1(112)788-429572 [place] [address] 06-01-2025 15:00-0400 Respiratory rate 17 /min Dr. Rishi Vasquez DO Work Phone: 5(928)697-579472 [place] [address] 06-01-2025 15:00-0400 SaO2% (BldA) [Mass fraction] 100 % Dr. Rishi Vasquez DO Work Phone: 1(669)260-867172 [place] [address] 06-01-2025 15:00-0400 Systolic blood pressure 109 mm[Hg] Dr. Rishi Vasquez DO Work Phone: 3(400)056-180172 [place] [address] 06-01-2025 06:00-0400 Body mass index (BMI) [Ratio] 26.4 kg/m2 Dr. Rishi Vasquez DO Work Phone: 9(675)873-305072 [place] [address] 06-01-2025 06:00-0400 Body weight 74.[address] Rishi Vasquez DO Work Phone: 4(003)826-447472 [place] [address] 05-28-2025 15:32-0400 Body height 167.[address] Rishi Vasquez DO Work Phone: 7(162)417-165372 [place] [address] 05-28-2025 11:58-0400 Inhaled oxygen flow rate 2 L/min Dr. Rishi Vasquez DO Work Phone: 2(806)647-354672 [place] [address] 05-26-2025 06:39-0400 Body temperature 97.9 [degF] Dr. Rishi Vasquez DO Work Phone: 1(787)791-652879 [place] [address] 05-26-2025 06:39-0400 Diastolic blood pressure 63 mm[Hg] Dr. Rishi Vasquez DO Work Phone: 0(420)314-889872 [place] [address] 05-26-2025 06:39-0400 Heart rate 62 /min Dr. Rishi Vasquez DO Work Phone: 4(458)456-312372 [place] [address] 05-26-2025 06:39-0400 Respiratory rate 16 /min Dr. Rishi Vasquez DO Work Phone: 7(661)280-652672 [place] [address] 05-26-2025 06:39-0400 SaO2% (BldA) [Mass fraction] 97 % Dr. Rishi Vasquez DO Work Phone: 5(587)653-910672 [place] [address] 05-26-2025 06:39-0400 Systolic blood pressure 149 mm[Hg] Dr. Rishi Vasquez DO Work Phone: 6(119)256-452172 [place] [address] 05-26-2025 05:18-0400 Body weight 73.[address] Rishi Vasquez DO Work Phone: 4(463)434-056372 [place] [address] 05-23-2025 10:49-0400 Body height 167.[address] Rishi Vasquez DO Work Phone: 8(959)529-086672 [place] [address] 05-22-2025 14:40-0400 Body mass index (BMI) [Ratio] 26.2 kg/m2 Dr. Rishi Vasquez DO Work Phone: 5(006)508-205672 [place] [address] 05-22-2025 14:18-0400 Body temperature 98.6 [degF] Dr. Rishi Vasquez DO Work Phone: 9(780)597-238272 [place] [address] 05-22-2025 14:18-0400 Diastolic blood pressure 98 mm[Hg] Dr. Rishi Vasquez DO Work Phone: 8(375)970-201872 [place] [address] 05-22-2025 14:18-0400 Heart rate 76 /min Dr. Rishi Vasquez DO Work Phone: 0(534)106-556872 [place] [address] 05-22-2025 14:18-0400 Respiratory rate 98 /min Dr. Rishi Vasquez DO Work Phone: 8(330)025-250779 [place] [address] 05-22-2025 14:18-0400 SaO2% (BldA) [Mass fraction] 100 % Dr. Rishi Vasquez DO Work Phone: 6(484)420-425172 [place] [address] 05-22-2025 14:18-0400 Systolic blood pressure 153 mm[Hg] Dr. Rishi Vasquez DO Work Phone: 1(855)336-995172 [place] [address] 05-22-2025 11:43-0400 Body mass index (BMI) [Ratio] 25.9 kg/m2 Dr. Rishi Vasquez DO Work Phone: 8(448)564-192772 [place] [address] 05-22-2025 11:43-0400 Body weight [address] Rishi Vasquez DO Work Phone: 0(406)626-870172 [place] [address] 05-22-2025 11:05-0400 Body height 167.[address] Rishi Vasquez DO Work Phone: 6(904)262-062972 [place] [address] 05-21-2025 11:23-0400 Body temperature 97.7 [degF] Dr. Rishi Vasquez DO Work Phone: 7(177)120-550372 [place] [address] 05-21-2025 11:23-0400 Diastolic blood pressure 47 mm[Hg] Dr. Rishi Vasquez DO Work Phone: 9(504)526-685872 [place] [address] 05-21-2025 11:23-0400 Heart rate 57 /min Dr. Rishi Vasquez DO Work Phone: 5(294)338-401072 [place] [address] 05-21-2025 11:23-0400 Respiratory rate 16 /min Dr. Rishi Vasquez DO Work Phone: 7(379)516-396972 [place] [address] 05-21-2025 11:23-0400 SaO2% (BldA) [Mass fraction] 96 % Dr. Rishi Vasquez DO Work Phone: 3(626)524-963572 [place] [address] 05-21-2025 11:23-0400 Systolic blood pressure 111 mm[Hg] Dr. Rishi Vasquez DO Work Phone: 4(793)341-420772 [place] [address] 05-21-2025 10:36-0400 Body height 167.[address] Rishi Vasquez DO Work Phone: 7(265)574-145772 [place] [address] 05-21-2025 10:36-0400 Body weight 73.[address] Rishi Vasquez DO Work Phone: 3(557)454-784672 [place] [address] 05-21-2025 03:11-0400 Inhaled oxygen flow rate 2 L/min Dr. Rishi Vasquez DO Work Phone: 7(485)040-907072 [place] [address] 05-21-2025 03:05-0400 Body mass index (BMI) [Ratio] 25.9 kg/m2 Dr. Rishi Vasquez DO Work Phone: 3(750)261-218272 [place] [address] 05-20-2025 15:37-0400 Inhaled oxygen concentration 96 % Dr. Rishi Vasquez DO Work Phone: 5(193)061-760472 [place] [address] 05-18-2025 23:00-0400 Diastolic blood pressure 54 mm[Hg] Dr. Rishi Vasquez DO Work Phone: 6(528)207-128472 [place] [address] 05-18-2025 23:00-0400 Heart rate 83 /min Dr. Rishi Vasquez DO Work Phone: 7(869)720-978872 [place] [address] 05-18-2025 23:00-0400 SaO2% (BldA) [Mass fraction] 96 % Dr. Rishi Vasquez DO Work Phone: 6(968)758-948972 [place] [address] 05-18-2025 23:00-0400 Systolic blood pressure 105 mm[Hg] Dr. Rishi Vasquez DO Work Phone: 3(280)473-683072 [place] [address] 05-18-2025 20:00-0400 Body temperature 98.9 [degF] Dr. Rishi Vasquez DO Work Phone: 6(523)609-280372 [place] [address] 05-18-2025 16:00-0400 Inhaled oxygen flow rate 2 L/min Dr. Rishi Vasquez DO Work Phone: 9(450)551-544772 [place] [address] 05-18-2025 10:51-0400 Body height 167.[address] Rishi Vasquez DO Work Phone: 8(854)800-808772 [place] [address] 05-18-2025 10:51-0400 Body weight 69.[address] Rishi Vasquez DO Work Phone: 5(259)882-566772 [place] [address] 05-18-2025 08:00-0400 Inhaled oxygen concentration 96 % Dr. Rishi Vasquez DO Work Phone: 7(720)894-530672 [place] [address] 05-18-2025 06:00-0400 Body mass index (BMI) [Ratio] 24.5 kg/m2 Dr. Rishi Vasquez DO Work Phone: 4(804)758-016572 [place] [address] 05-18-2025 02:01-0400 Body temperature 103.1 [degF] Dr. Rishi Vasquez DO Work Phone: 4(497)678-792472 [place] [address] 05-18-2025 02:01-0400 Diastolic blood pressure 60 mm[Hg] Dr. Rishi Vasquez DO Work Phone: 1(305)177-126072 [place] [address] 05-18-2025 02:01-0400 Heart rate 100 /min Dr. Rishi Vasquez DO Work Phone: 1(019)400-794372 [place] [address] 05-18-2025 02:01-0400 Respiratory rate 17 /min Dr. Rishi Vasquez DO Work Phone: 0(658)360-762672 [place] [address] 05-18-2025 02:01-0400 SaO2% (BldA) [Mass fraction] 92 % Dr. Rishi Vasquez DO Work Phone: 3(690)694-570572 [place] [address] 05-18-2025 02:01-0400 Systolic blood pressure 114 mm[Hg] Dr. Rishi Vasquez DO Work Phone: 3(006)278-011372 [place] [address] 05-17-2025 21:40-0400 Body height 167.[address] Rishi Vasquez DO Work Phone: 0(096)057-693972 [place] [address] 05-17-2025 21:40-0400 Body mass index (BMI) [Ratio] 25.9 kg/m2 Dr. Rishi Vasquez DO Work Phone: 6(671)980-248172 [place] [address] 05-17-2025 21:40-0400 Body weight 72.[address] Rishi Vasquez DO Work Phone: 1(958)167-313772 [place] [address] 05-13-2025 16:09-0400 Body temperature 98.2 [degF] Dr. Rishi Vasquez DO Work Phone: 5(598)347-931472 [place] [address] 05-13-2025 16:09-0400 Body weight 70.[address] Rishi Vasquez DO Work Phone: 6(566)208-943972 [place] [address] 05-13-2025 16:09-0400 Diastolic blood pressure 54 mm[Hg] Dr. Rishi Vasquez DO Work Phone: 0(949)446-086972 [place] [address] 05-13-2025 16:09-0400 Heart rate 60 /min Dr. Rishi Vasquez DO Work Phone: 2(463)630-821872 [place] [address] 05-13-2025 16:09-0400 Respiratory rate 16 /min Dr. Rihsi Vasquez DO Work Phone: 6(284)636-476072 [place] [address] 05-13-2025 16:09-0400 SaO2% (BldA) [Mass fraction] 97 % Dr. Rishi Vasquez DO Work Phone: 5(523)870-747072 [place] [address] 05-13-2025 16:09-0400 Systolic blood pressure 130 mm[Hg] Dr. Rishi Vasquez DO Work Phone: 9(604)925-385472 [place] [address] 05-07-2025 09:19-0400 Body height 167.[address] Rishi Vasquez DO Work Phone: 4(408)930-826872 [place] [address] 05-07-2025 09:19-0400 Body mass index (BMI) [Ratio] 24.7 kg/m2 Dr. Rishi Vasquez DO Work Phone: 7(151)919-779772 [place] [address] 05-07-2025 09:19-0400 Body weight 69.[address] Rishi Vasquez DO Work Phone: 9(682)355-100472 [place] [address] 05-07-2025 09:19-0400 Diastolic blood pressure 63 mm[Hg] Dr. Rishi Vasquez DO Work Phone: 7(882)315-703372 [place] [address] 05-07-2025 09:19-0400 Heart rate 56 /min Dr. Rishi Vasquez DO Work Phone: 8(029)427-561872 [place] [address] 05-07-2025 09:19-0400 Respiratory rate 16 /min Dr. Rishi Vasquez DO Work Phone: [facility] 05-07-2025 09:19-0400 Systolic blood pressure 123 mm[Hg] Dr. Rishi Vasquez DO Work Phone: [facility] 04-30-2025 11:13-0400 Body mass index (BMI) [Ratio] 24.5 kg/m2 Ld Chandra [employer] Work Phone: [facility] 04-30-2025 11:13-0400 Body weight 68.86 kg Ld Chandra [employer]PERVIS[employer] Work Phone: [facility] 04-30-2025 11:13-0400 Diastolic blood pressure 60 mm[Hg] Ld Chandra SUPERVISOR [employer] Work Phone: [facility] 04-30-2025 11:13-0400 Heart rate 77 /min Ld Chandra SUPERVIS[employer] Work Phone: [facility] 04-30-2025 11:13-0400 Respiratory rate 12 /min Ld Chandra SUPERVIS[employer] Work Phone: [facility] 04-30-2025 11:13-0400 SaO2% (BldA) [Mass fraction] 98 % Ld Chandra SUPERVIS[employer] Work Phone: [facility] 04-30-2025 11:13-0400 Systolic blood pressure 130 mm[Hg] Ld Chandra SUPERVIS[employer] Work Phone: [facility] 04-15-2025 11:26-0400 Body height 167.[address] Rishi Vasquez DO Work Phone: [facility] 04-15-2025 11:26-0400 Body weight 74.[address] Rishi Vasquez DO Work Phone: [facility] 04-14-2025 07:25-0400 Body mass index (BMI) [Ratio] 26.4 kg/m2 Dr. Rishi Vasquez DO Work Phone: 3(506)195-266479 [place] [address] 04-03-2025 11:01-0400 Body temperature 98.2 [degF] Dr. Rishi Vasquez DO Work Phone: 7(026)942-525679 [place] [address] 04-03-2025 11:01-0400 Body weight 74.[address] Rishi Vasquez DO Work Phone: 8(606)876-427272 [place] [address] 04-03-2025 11:01-0400 Diastolic blood pressure 59 mm[Hg] Dr. Rishi Vasquez DO Work Phone: 2(988)716-326072 [place] [address] 04-03-2025 11:01-0400 Heart rate 60 /min Dr. Rishi Vasquez DO Work Phone: 1(938)339-018672 [place] [address] 04-03-2025 11:01-0400 Respiratory rate 14 /min Dr. Rishi Vasquez DO Work Phone: 8(996)329-026572 [place] [address] 04-03-2025 11:01-0400 SaO2% (BldA) [Mass fraction] 97 % Dr. Rishi Vasquez DO Work Phone: 8(807)659-156179 [place] [address] 04-03-2025 11:01-0400 Systolic blood pressure 124 mm[Hg] Dr. Rishi Vasquez DO Work Phone: 7(365)323-010472 [place] [address] 03-27-2025 10:16-0400 Diastolic blood pressure 68 mm[Hg] Yumiko Podlogar SUPERVISOR [employer] Work Phone: [facility] 03-27-2025 10:16-0400 Heart rate 74 /min Yumiko Podlogar SUPERVISOR [employer] Work Phone: [facility] 03-27-2025 10:16-0400 Respiratory rate 16 /min Yumiko Podlogar SUPERVISOR [employer] Work Phone: [facility] 03-27-2025 10:16-0400 SaO2% (BldA) [Mass fraction] 99 % Yumiko Podlogar SUPERVISOR [employer] Work Phone: [facility] 03-27-2025 10:16-0400 Systolic blood pressure 134 mm[Hg] Yumiko Podlogar SUPERVISOR [employer] Work Phone: [facility] 03-20-2025 08:28-0400 Body temperature 98.9 [degF] Dr. Rishi Vasquez DO Work Phone: [facility] 03-20-2025 08:28-0400 Diastolic blood pressure 57 mm[Hg] Dr. Rishi Vasquez DO Work Phone: 0(041)078-781972 [place] [address] 03-20-2025 08:28-0400 Heart rate 52 /min Dr. Rishi Vasquez DO Work Phone: 0(955)346-272879 [place] [address] 03-20-2025 08:28-0400 Respiratory rate 18 /min Dr. Rishi Vasquez DO Work Phone: 7(550)940-036372 [place] [address] 03-20-2025 08:28-0400 SaO2% (BldA) [Mass fraction] 97 % Dr. Rishi Vasquez DO Work Phone: 2(216)261-649672 [place] [address] 03-20-2025 08:28-0400 Systolic blood pressure 142 mm[Hg] Dr. Rishi Vasquez DO Work Phone: 5(440)165-572972 [place] [address] 03-19-2025 10:06-0400 Body height 167.[address] Rishi Vasquez DO Work Phone: 4(669)303-556072 [place] [address] 03-19-2025 10:06-0400 Body mass index (BMI) [Ratio] 26.4 kg/m2 Dr. Rishi Vasquez DO Work Phone: 8(259)020-875879 [place] [address] 03-19-2025 10:06-0400 Body weight 74.[address] Rishi Vasquez DO Work Phone: 6(600)161-700279 [place] [address] 03-11-2025 15:34-0400 Body temperature 97.9 [degF] Dr. Rishi Vasquez DO Work Phone: 5(768)755-628979 [place] [address] 03-11-2025 15:34-0400 Diastolic blood pressure 47 mm[Hg] Dr. Rishi Vasquez DO Work Phone: 5(619)356-511972 [place] [address] 03-11-2025 15:34-0400 Heart rate 58 /min Dr. Rishi Vasquez DO Work Phone: 1(067)779-806879 [place] [address] 03-11-2025 15:34-0400 Respiratory rate 16 /min Dr. Rishi Vasquez DO Work Phone: 7(170)604-415379 [place] [address] 03-11-2025 15:34-0400 SaO2% (BldA) [Mass fraction] 97 % Dr. Rishi Vasquez DO Work Phone: 4(127)080-192379 [place] [address] 03-11-2025 15:34-0400 Systolic blood pressure 112 mm[Hg] Dr. Rishi Vasquez DO Work Phone: 8(174)095-156372 [place] [address] 03-11-2025 05:37-0400 Body mass index (BMI) [Ratio] 26.6 kg/m2 Dr. Rishi Vasquze DO Work Phone: 9(329)468-940472 [place] [address] 03-11-2025 05:37-0400 Body weight 75.[address] Rishi Vasquez DO Work Phone: 9(274)846-128972 [place] [address] 03-07-2025 17:01-0400 Body temperature 98 [degF] Dr. Rishi Vasquez DO Work Phone: 3(460)265-124772 [place] [address] 03-07-2025 17:01-0400 Diastolic blood pressure 78 mm[Hg] Dr. Rishi Vasquez DO Work Phone: 3(525)280-980479 [place] [address] 03-07-2025 17:01-0400 Heart rate 67 /min Dr. Rishi Vasquez DO Work Phone: 5(675)187-548579 [place] [address] 03-07-2025 17:01-0400 Respiratory rate 14 /min Dr. Rishi Vasquez DO Work Phone: 8(230)485-948979 [place] [address] 03-07-2025 17:01-0400 SaO2% (BldA) [Mass fraction] 99 % Dr. Rishi Vasquez DO Work Phone: [phone] [place] [address] 03-07-2025 17:01-0400 Systolic blood pressure 109 mm[Hg] Dr. Rishi Vasquez DO Work Phone: [phone] [place] [address] 03-07-2025 13:42-0400 Body height 167.[address] Rishi Vasquez DO Work Phone: [facility] 03-07-2025 13:42-0400 Body mass index (BMI) [Ratio] 27.6 kg/m2 Dr. Rishi Vasquez DO Work Phone: [facility] 03-07-2025 13:42-0400 Body weight 77.[address] Rishi Vasquez DO Work Phone: [facility] 12-05-2024 09:39-0500 Diastolic blood pressure 60 mm[Hg] Rishi Vasquez DO Work Phone: [facility] 12-05-2024 09:39-0500 Systolic blood pressure 110 mm[Hg] Rishi Vasquez DO Work Phone: [facility] 12-05-2024 09:03-0500 Body mass index (BMI) [Ratio] 25.62 kg/m2 Rishi Vasquez DO Work Phone: [facility] 12-05-2024 09:03-0500 Body temperature 97 [degF] Rishi Vasquez DO Work Phone: [facility] 12-05-2024 09:03-0500 Body weight 72 kg Rishi Vasquez DO Work Phone: [facility] 12-05-2024 09:03-0500 Heart rate 60 /min Rishi Vasquez DO Work Phone: [facility] 12-05-2024 09:03-0500 Respiratory rate 16 /min Rishi Vasquez DO Work Phone: [facility] 06-04-2024 09:43-0400 Body mass index (BMI) [Ratio] 24.69 kg/m2 Rishi Vasquez DO Work Phone: [facility] 06-04-2024 09:43-0400 Body temperature 96.6 [degF] Rishi Vasquez DO Work Phone: [facility] 06-04-2024 09:43-0400 Body weight 69.4 kg Rishi Vasquez DO Work Phone: [facility] 06-04-2024 09:43-0400 Diastolic blood pressure 70 mm[Hg] Rishi Vasquez DO Work Phone: [facility] 06-04-2024 09:43-0400 Heart rate 64 /min Rishi Del Rosarioon DO Work Phone: [facility] 06-04-2024 09:43-0400 Respiratory rate 16 /min Rishi Vasquez DO Work Phone: [facility] 06-04-2024 09:43-0400 Systolic blood pressure 154 mm[Hg] Rishi Vasquez DO Work Phone: [facility] 02-07-2024 09:19-0400 Body mass index (BMI) [Ratio] 25.8 kg/m2 Dr. Rishi Vasquez Work Phone: [facility] 02-07-2024 09:19-0400 Body weight 72.[address] Rishi Vasquez Work Phone: [facility] 02-07-2024 09:19-0400 Diastolic blood pressure 71 mm[Hg] Dr. Rishi Vasquez Work Phone: [facility] 02-07-2024 09:19-0400 Heart rate 47 /min Dr. Rishi Vasquez Work Phone: [facility] 02-07-2024 09:19-0400 Respiratory rate 18 /min Dr. Rishi Vasquez Work Phone: [facility] 02-07-2024 09:19-0400 Systolic blood pressure 142 mm[Hg] Dr. Rishi Vasquez Work Phone: [facility] 01-15-2024 10:00-0500 Diastolic blood pressure 71 mm[Hg] Anselmo Golias PT Work Phone: [facility] 01-15-2024 10:00-0500 Heart rate 63 /min Anselmo Golias PT Work Phone: [facility] 01-15-2024 10:00-0500 Systolic blood pressure 166 mm[Hg] Anselmo Golias PT Work Phone: [facility] 07-03-2023 09:06-0400 Body height 167.[address] Rishi Vasquez Work Phone: [facility] 07-03-2023 09:06-0400 Body mass index (BMI) [Ratio] 26.1 kg/m2 Dr. Rishi Vasquez Work Phone: [facility] 07-03-2023 09:06-0400 Body weight 73.[address] Rishi Vasquez Work Phone: [facility] 07-03-2023 09:06-0400 Diastolic blood pressure 62 mm[Hg] Dr. Rishi Vasquez Work Phone: [facility] 07-03-2023 09:06-0400 Heart rate 55 /min Dr. Rishi Vasquez Work Phone: [facility] 07-03-2023 09:06-0400 Respiratory rate 17 /min Dr. Rishi Vasquez Work Phone: [facility] 07-03-2023 09:06-0400 SaO2% (BldA) [Mass fraction] 99 % Dr. Rishi Vasquez Work Phone: [facility] 07-03-2023 09:06-0400 Systolic blood pressure 145 mm[Hg] Dr. Rishi Vasquez Work Phone: [facility] 06-04-2023 11:25-0400 Body temperature 97.3 [degF] Rishi Vasquez DO Work Phone: [facility] 06-04-2023 11:25-0400 Body weight 72.58 kg Rishi Vasquez DO Work Phone: [facility] 06-04-2023 11:25-0400 Diastolic blood pressure 70 mm[Hg] Rishi Vasquez DO Work Phone: [facility] 06-04-2023 11:25-0400 Heart rate 60 /min Rishi Vasquez DO Work Phone: [facility] 06-04-2023 11:25-0400 Respiratory rate 16 /min Rishi Vasquez DO Work Phone: [facility] 06-04-2023 11:25-0400 Systolic blood pressure 120 mm[Hg] Rishi Vasquez DO Work Phone: [facility] 04-20-2023 08:57-0400 Body height 167.[address] Rishi Vasquez Work Phone: [facility] 04-20-2023 08:57-0400 Heart rate 56 /min Dr. Rishi Vasquez Work Phone: [facility] 04-20-2023 08:51-0400 Body mass index (BMI) [Ratio] 25.9 kg/m2 Dr. Rishi Vasquez Work Phone: [facility] 04-20-2023 08:51-0400 Body weight 73.[address] Rishi Vasquez Work Phone: [facility] 04-20-2023 08:51-0400 Diastolic blood pressure 72 mm[Hg] Dr. Rishi Vasquez Work Phone: [facility] 04-20-2023 08:51-0400 Respiratory rate 18 /min Dr. Rishi Vasquez Work Phone: [facility] 04-20-2023 08:51-0400 SaO2% (BldA) [Mass fraction] 99 % Dr. Rishi Vasquez Work Phone: [facility] 04-20-2023 08:51-0400 Systolic blood pressure 147 mm[Hg] Dr. Rishi Vasquez Work Phone: [facility] 12-05-2022 09:40-0500 Body temperature 97.3 [degF] Rishi Vasquez DO Work Phone: [facility] 12-05-2022 09:40-0500 Body weight 72.58 kg Rishi Vasquez DO Work Phone: [facility] 12-05-2022 09:40-0500 Diastolic blood pressure 82 mm[Hg] Rishi Vasquez DO Work Phone: [facility] 12-05-2022 09:40-0500 Heart rate 64 /min Rishi Vasquez DO Work Phone: [facility] 12-05-2022 09:40-0500 Respiratory rate 16 /min Rishi Vasquez DO Work Phone: [facility] 12-05-2022 09:40-0500 Systolic blood pressure 126 mm[Hg] Rishi Vasquez DO Work Phone: [facility] 09-23-2022 09:01-0400 Body temperature 97.5 [degF] Camille Athy PA-C Work Phone: [facility] 09-23-2022 09:01-0400 Body weight 74.93 kg Camille Athy PA-C Work Phone: [facility] 09-23-2022 09:01-0400 Diastolic blood pressure 72 mm[Hg] Camille Athy PA-C Work Phone: [facility] 09-23-2022 09:01-0400 Heart rate 62 /min Camille Athy PA-C Work Phone: [facility] 09-23-2022 09:01-0400 Respiratory rate 21 /min Camille Athy PA-C Work Phone: [facility] 09-23-2022 09:01-0400 SaO2% (BldA) [Mass fraction] 99 % Camille Athy PA-C Work Phone: [facility] 09-23-2022 09:01-0400 Systolic blood pressure 160 mm[Hg] Camille Athy PA-C Work Phone: [facility] 08-15-2022 12:13-0400 Body temperature 97.81 [degF] Camille Athy PA-C Work Phone: [facility] 08-15-2022 12:13-0400 Body weight 75.03 kg Camille Athy PA-C Work Phone: [facility] 08-15-2022 12:13-0400 Diastolic blood pressure 86 mm[Hg] Camille Athy PA-C Work Phone: [facility] 08-15-2022 12:13-0400 Heart rate 49 /min Camille Athy PA-C Work Phone: [facility] 08-15-2022 12:13-0400 Respiratory rate 18 /min Camille Athy PA-C Work Phone: [facility] 08-15-2022 12:13-0400 SaO2% (BldA) [Mass fraction] 98 % Camille Athy PA-C Work Phone: [facility] 08-15-2022 12:13-0400 Systolic blood pressure 162 mm[Hg] Camille Athy PA-C Work Phone: [facility] 08-08-2022 09:30-0400 Body height 167.[address] Rishi Vasquez Work Phone: [facility] Work Phone: 08-08-2022 09:30-0400 Body mass index (BMI) [Ratio] 26.6 kg/m2 Dr. Rishi Vasquez Work Phone: [facility] Work Phone: 08-08-2022 09:30-0400 Body weight 74.[address] Rishi Vasquez Work Phone: [facility] Work Phone: 08-08-2022 09:30-0400 Diastolic blood pressure 51 mm[Hg] Dr. Rishi Vasquez Work Phone: [facility] Work Phone: 08-08-2022 09:30-0400 Heart rate 46 /min Dr. Rishi Vasquez Work Phone: [facility] Work Phone: 08-08-2022 09:30-0400 Respiratory rate 16 /min Dr. Rishi Vasquez Work Phone: [facility] Work Phone: 08-08-2022 09:30-0400 Systolic blood pressure 126 mm[Hg] Dr. Rishi Vasquez Work Phone: [facility] Work Phone: 06-29-2022 09:35-0400 Diastolic blood pressure 71 mm[Hg] Dr. Rishi Vasquez Work Phone: [facility] Work Phone: 06-29-2022 09:35-0400 Respiratory rate 18 /min Dr. Rishi Vasquez Work Phone: [facility] Work Phone: 06-29-2022 09:35-0400 Systolic blood pressure 164 mm[Hg] Dr. Rishi Vasquez Work Phone: [facility] Work Phone: 06-17-2022 08:24-0400 Body temperature 97.9 [degF] Kena Older SUPERVISOR AGRICULTURAL EDUCATION.[employer] Work Phone: [facility] 06-17-2022 08:24-0400 Body weight 76.39 kg Kena Older SUPERVISOR AGRICULTURAL EDUCATION.[employer] Work Phone: [facility] 06-17-2022 08:24-0400 Diastolic blood pressure 80 mm[Hg] Kena Older SUPERVISOR AGRICULTURAL EDUCATION.[employer] Work Phone: [facility] 06-17-2022 08:24-0400 Heart rate 59 /min Kena Older SUPERVISOR AGRICULTURAL EDUCATION.[employer] Work Phone: [facility] 06-17-2022 08:24-0400 Respiratory rate 20 /min Kena Older SUPERVISOR AGRICULTURAL EDUCATION.[employer] Work Phone: [facility] 06-17-2022 08:24-0400 SaO2% (BldA) [Mass fraction] 97 % Kena Older SUPERVISOR AGRICULTURAL EDUCATION.[employer] Work Phone: [facility] 06-17-2022 08:24-0400 Systolic blood pressure 158 mm[Hg] Kena Older SUPERVISOR AGRICULTURAL EDUCATION.[employer] Work Phone: [facility] 05-31-2022 10:19-0400 Body temperature 98.29 [degF] Rishi Taterison DO Work Phone: [facility] 05-31-2022 10:19-0400 Body weight 75.3 kg Rishi Taterison DO Work Phone: [facility] 05-31-2022 10:19-0400 Diastolic blood pressure 70 mm[Hg] Rishi Taterison DO Work Phone: [facility] 05-31-2022 10:19-0400 Heart rate 56 /min Rishi Vasquez DO Work Phone: [facility] 05-31-2022 10:19-0400 Systolic blood pressure 116 mm[Hg] Rishi Del Rosarioon DO Work Phone: [facility] 02-07-2022 08:55-0400 Body height 167.[address] Rishi Vasquez Work Phone: [facility] Work Phone: 02-07-2022 08:55-0400 Body mass index (BMI) [Ratio] 26.9 kg/m2 Dr. Rishi Vasquez Work Phone: [facility] Work Phone: 02-07-2022 08:55-0400 Body weight 75.[address] Rishi Vasquez Work Phone: [facility] Work Phone: 02-07-2022 08:55-0400 Diastolic blood pressure 68 mm[Hg] Dr. Rishi Vasquez Work Phone: [facility] Work Phone: 02-07-2022 08:55-0400 Heart rate 63 /min Dr. Rishi Vasquez Work Phone: [facility] Work Phone: 02-07-2022 08:55-0400 Respiratory rate 18 /min Dr. Rishi Vasquez Work Phone: [facility] Work Phone: 02-07-2022 08:55-0400 SaO2% (BldA) [Mass fraction] 100 % Dr. Rishi Vasquez Work Phone: [facility] Work Phone: 02-07-2022 08:55-0400 Systolic blood pressure 152 mm[Hg] Dr. Rishi Vasquez Work Phone: [facility] Work Phone: 01-20-2022 09:42-0500 Body temperature 97.6 [degF] Dr. Rishi Vasquez Work Phone: [facility] Work Phone: 01-20-2022 09:42-0500 Diastolic blood pressure 56 mm[Hg] Dr. Rishi Vasquez Work Phone: [facility] Work Phone: 01-20-2022 09:42-0500 Heart rate 75 /min Dr. Rishi Vasquez Work Phone: [facility] Work Phone: 01-20-2022 09:42-0500 Respiratory rate 16 /min Dr. Rishi Vasquez Work Phone: [facility] Work Phone: 01-20-2022 09:42-0500 SaO2% (BldA) [Mass fraction] 98 % Dr. Rishi Vasquez Work Phone: [facility] Work Phone: 01-20-2022 09:42-0500 Systolic blood pressure 123 mm[Hg] Dr. Rishi Vasquez Work Phone: [facility] Work Phone: 12-29-2021 08:28-0500 Body mass index (BMI) [Ratio] 27.1 kg/m2 Dr. Rishi Vasquez Work Phone: [facility] Work Phone: 12-29-2021 08:28-0500 Body temperature 97.8 [degF] Dr. Rishi Vasquez Work Phone: [facility] Work Phone: 12-29-2021 08:28-0500 Body weight 76.[address] Rishi Vasquez Work Phone: [facility] Work Phone: 12-29-2021 08:28-0500 Diastolic blood pressure 64 mm[Hg] Dr. Rishi Vasquez Work Phone: [facility] Work Phone: 12-29-2021 08:28-0500 Heart rate 60 /min Dr. Rishi Vasquez Work Phone: [facility] Work Phone: 12-29-2021 08:28-0500 Respiratory rate 17 /min Dr. Rishi Vasquez Work Phone: [facility] Work Phone: 12-29-2021 08:28-0500 SaO2% (BldA) [Mass fraction] 97 % Dr. Rishi Vasquez Work Phone: [facility] Work Phone: 12-29-2021 08:28-0500 Systolic blood pressure 182 mm[Hg] Dr. Rishi Vasquez Work Phone: [facility] Work Phone: 10-18-2021 23:19-0500 Body mass index (BMI) [Ratio] 26.9 kg/m2 Dr. Rishi Vasquez Work Phone: [facility] Work Phone: 08-30-2017 15:31-0400 BMI (Body Mass Index) 29.78 kg/m2 Kwaku Moscoso MD [facility] Work Phone: 08-30-2017 15:31-0400 Body Temperature 98.1 [degF] Kwaku Moscoso MD [facility] Work Phone: 08-30-2017 15:31-0400 BP Diastolic 73 mm[Hg] Kwaku Moscoso MD [facility] Work Phone: 08-30-2017 15:31-0400 BP Systolic 156 mm[Hg] Kwaku Moscoso MD [facility] Work Phone: 08-30-2017 15:31-0400 Height 165.1 cm Kwaku Moscoso MD [facility] Work Phone: 08-30-2017 15:31-0400 Pulse (Heart Rate) 54 /min Kwaku Moscoso MD [facility] Work Phone: 08-30-2017 15:31-0400 Respiratory Rate 18 /min Kwaku Moscoso MD [facility] Work Phone: 08-30-2017 15:31-0400 Weight 81.19 kg Kwaku Moscoso MD [facility] Work Phone: 06-11-2017 10:53-0400 [...] Phone: 06-11-2017 10:53-0400 Weight 83.46 kg Gayelisa [facility] Work Phone: 05-02-2017 12:55-0400 [...] Mass Index) 30.08 kg/m2 Shaina Serna LPN [facility] Work Phone: 04-23-2017 11:14-0400 Body [...] Surface Area) 1.91 m2 Shaina Serna LPN [facility] Work Phone: 02-06-2017 12:57-0400 Height 167.64 cm Shaina Serna LPN [facility] Work Phone: 02-06-2017 12:57-0400 Weight 80.92 kg Marly Signs MD [facility] Work Phone: 12-05-2016 12:56-0500 Pulse Oximetry 98 % Shaina Serna LPN [facility] Work Phone: 11-17-2016 07:54-0500 Body surface area Derived from formula 45.87 mL/min Shaina Serna LPN [facility] Work Phone: 05-25-2015 14:56-0400 Heart rate 55 /min Shaina Serna LPN [facility] Work Phone: 01-12-2014 13:16-0500 Heart rate 406 ms Shaina Serna LPN [facility] Work Phone: Encounters Encounter Date Encounter Type Care Provider Facility Start: 07-10-2025 End: 07-10-2025 Dr. Fernando Vogel MD -[facility] Work Phone: Start: 07-10-2025 End: 07-10-[address] Rishi Vasquez DO Work Phone: -[facility] Start: 07-09-2025 Dr. Russell Clement MD -[facility] Work Phone: Start: 07-09-2025 ambulatory Rishi Vasquez Facilit y:[facility] Start: 07-08-2025 ambulatory Rishi Vasquez Facilit y:[facility] Start: 07-01-2025 End: 07-01-2025 Telephone encounter Elias Crocker MD Work Phone: Vascular Surg Dept Start: 06-30-2025 Dr. Russell Clement MD -[facility] Start: 06-30-2025 End: 06-30-2025 Evaluation and management of inpatient Dr. Rishi Vasquez DO Work Phone: -[facility] Start: 06-30-2025 End: 06-30-2025 Dr. Russell Clement MD -[facility] Work Phone: Start: 06-30-2025 End: 06-30-2025 ambulatory Rishi Vasquez Facility:[facility] Start: 06-25-2025 Abena VYAS [facility] Start: 06-23-2025 Dr. Rishi Vasquez DO -Cardiac Rehab Work Phone: Start: 06-23-2025 ambulatory Rishi Vasquez Facilit y:[facility] Start: 06-19-2025 Abena VYAS [facility] Start: 06-19-2025 End: 06-19-2025 Dr. Phong Solomon MD -Cardiovascular Services Work Phone: Start: 06-19-2025 End: 06-19-2025 ambulatory Rishi Vasquez Facility:[facility] Start: 06-16-2025 End: 06-18-[address] Rishi Vasquez DO Work Phone: -Cardiac Rehab Start: 06-16-2025 End: 06-18-2025 Dr. Rishi Vasquez DO -Cardiac Rehab Work Phone: Start: 06-15-2025 ambulatory Rishi Vasquez Facilit y:[facility] Start: 06-12-2025 End: 06-17-2025 Telephone encounter Rishi Vasquez DO Work Phone: [facility] Comment on above: Results ([facility] lab results (A1C & CMP)) Start: 06-12-2025 End: 06-12-[address] Rishi Vasquez DO Work Phone: -Cardiovascular Services Start: 06-12-2025 End: 06-12-2025 Dr. Phong Solomon MD -Cardiovascular Services Work Phone: Start: 06-12-2025 End: 06-12-2025 ambulatory Rishi Vasquez Facility:[facility] Start: 06-11-2025 End: 06-11-2025 Dr. Rishi Vasquez DO Work Phone: -Emergency Department Work Phone: Start: 06-11-2025 End: 06-11-2025 Emergency department patient visit Dr. Rishi Vasquez DO Work Phone: -Emergency Department Start: 06-09-2025 End: 06-09-2025 Abena VYAS -[facility] Work Phone: Start: 06-09-2025 End: 06-09-[address] Rishi Vasquez DO Work Phone: -[facility] Start: 06-05-2025 End: 06-05-2025 Ortega Yanez DO -Endoscopy Work Phone: Start: 06-05-2025 End: 06-05-[address] Rishi Vasquez DO Work Phone: -Endoscopy Start: 06-04-2025 Ortega Yanez DO -[facility] Start: 06-03-2025 Encounter for preprocedural cardiovascular examination [facility] Start: 06-01-2025 End: 06-30-2025 Dr. Phong Solomon MD -Transitional Care Unit Start: 06-01-2025 ambulatory Rishi Dewey y:[facility] Start: 06-01-2025 End: 06-30-2025 Evaluation and management of inpatient Dr. Rishi Vasquez DO Work Phone: -Transitional Care Unit Start: 06-01-2025 Dr. Christos Morrow MD -[facility]icians Work Phone: Start: 05-31-2025 Dr. Maddie Merchant MD [facility] Work Phone: Start: 05-30-2025 Dr. Maddie Merchant MD - [facility] Work Phone: Start: 05-29-2025 Abena Fiore [facility] Start: 05-29-2025 Dr. Maddie Merchant MD [facility] Work Phone: Start: 05-28-2025 Abena Fiore [facility] Start: 05-28-2025 Dr. Maddie Merchant MD [facility]patient [facility] Work Phone: Start: 05-27-2025 Abena Fiore [facility] Start: 05-27-2025 Dr. Maddie Merchant MD [facility] Work Phone: Start: 05-26-2025 Dr. Russell Clement MD [facility] Start: 05-26-2025 Dr. Maddie Merchant MD [facility] Work Phone: Start: 05-25-2025 Dr. Russell Clement MD [facility] Start: 05-25-2025 ambulatory Rishi Dewey y:[facility] Start: 05-25-2025 End: 06-01-2025 Evaluation and management of inpatient Dr. Rishi Vasquez DO Work Phone: -Medical Surgical 3 Start: 05-25-2025 End: 06-01-2025 Dr. Maddie Merchant MD -Intensive Care Un it Work Phone: Start: 05-25-2025 Encounter for other preprocedural examination Russell Clement [facility] Start: 05-24-2025 Dr. Michaela Joshua DO -[facility] Work Phone: Start: 05-23-2025 Dr. Michaela Joshua DO -[facility] Work Phone: Start: 05-22-2025 ambulatory Wilberto Suazo [facility] ility:[facility] Start: 05-22-[address] Sunny Vasquez [...] Phone: Start: 05-19-2025 Dr. Jacinto Tamez DO -[facility] Start: 05-18-2025 Dr. Russell Clement MD -[facility] Start: 05-18-2025 Dr. Jacinto Tamez DO -[facility] Start: 05-18-2025 ambulatory Rem [facility] Facility:[facility] Start: 05-18-2025 End: 05-21-2025 Evaluation and management of inpatient Dr. Rishi Vasquez DO Work Phone: -Medical Surgical 3 Start: 05-18-2025 End: 05-21-2025 Dr. Maddie Merchant MD -Medical Surgical 3 Work Phone: Start: 05-13-2025 End: 05-13-2025 Abena VYAS -[facility] Work Phone: Start: 05-13-2025 End: 05-13-[address] Rishi Vasquez DO Work Phone: [facility] Work Phone: Start: 05-11-2025 ambulatory Rishi Vasquez Facilit y:[facility] Start: 05-11-2025 Non-patient / Non-visit Dr. Jarret walden MD -[facility] Start: 05-11-2025 Dr. Jarret Quiles MD -[facility] Start: 05-08-2025 End: 05-08-[address] Rishi Vasquez DO Work Phone: [facility] Work Phone: Start: 05-08-2025 End: 05-08-[address] Jarret Quiles MD -Cardiovascular Services Work Phone: Start: 05-08-2025 End: 05-08-2025 Dr. Jarret Quiles MD -Cardiovascular Services Work Phone: Start: 05-07-2025 End: 05-07-2025 Patient encounter procedure Rick EMERY -[facility] Work Phone: Start: 05-07-2025 End: 05-07-2025 Patient encounter status Rick Bergeron NP-[facility] Comment on above: Vascular surgery in May Start: 05-07-2025 End: 05-07-2025 Rick Bergeron NP-Andrés -[facility] Work Phone: Start: 05-07-2025 End: 05-08-[address] 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 Rishi Vasquez DO Work Phone: [facility] Work Phone: Start: 04-27-2025 End: 04-27-[address] Ciaran Renee MD -Ultrasound [facility] Work Phone: Start: 04-27-2025 End: 04-27-2025 Dr. Ciaran Renee MD -Ultrasound [facility] Work Phone: Start: 04-27-2025 End: 04-27-2025 ambulatory Rishi Vasquez Facility:[facility] Start: 04-23-2025 End: 05-18-[address] Rishi Vasquez DO Work Phone: -Cardiac Rehab Start: 04-23-[address] Rishi ponce DO -Cardiac Rehab Work Phone: Start: 04-23-2025 End: 05-18-2025 Dr. Rishi Vasquez DO -Cardiac Rehab Work Phone: Start: 04-21-[address] Rishi ponce DO -Cardiac Rehab Work Phone: Start: 04-20-2025 Non-patient / Non-visit Dr. Russell dobbs MD -[facility] Start: 04-20-2025 End: 04-20-[address] Rishi Vasquez DO Work Phone: [facility] Work Phone: Start: 04-20-2025 End: 04-20-2025 Patient encounter procedure Abena VYAS -Cardiovascular Services Work Phone: Start: 04-20-2025 End: 04-20-2025 Dr. Russell Clement MD -[facility] Start: 04-20-2025 End: 04-20-2025 ambulatory Rishi Vasquez Facility:[facility] Start: 04-16-2025 End: 04-16-2025 Telephone encounter Rishi Vasquez DO Work Phone: [facility] Comment on above: Senior Living Plan of Care Start: 04-15-2025 ambulatory Rishi Vasquez Facilit y:[facility] Start: 04-15-2025 Non-patient / Non-visit Dr. Russell dobbs MD -[facility] Start: 04-15-2025 Dr. Russell Clement MD -[facility] Start: 04-15-2025 End: 04-15-2025 Telephone encounter Ld Artis APRN.[employer] Work Phone: [facility] Start: 04-15-2025 End: 04-15-2025 Admission to same day surgery center Dr. Russell Clement MD -Patrol Inspector/Special Procedures Work Phone: Start: 04-15-2025 End: 04-15-2025 Dr. Russell Clement MD -Patrol Inspector/Special Procedures Work Phone: Start: 04-15-2025 End: 04-15-[address] Rishi Vasquez DO Work Phone: [facility] Work Phone: Start: 04-07-2025 End: 04-21-2025 ambulatory Rishi Vasquez DO Work Phone: [facility] Comment on above: Diabetes Start: 04-03-2025 End: 04-03-2025 Patient encounter procedure Abena VYAS -[facility] Work Phone: Start: 04-03-2025 End: 04-03-2025 Abena VYAS -[facility] Work Phone: Start: 04-03-2025 End: 04-03-[address] Rishi Vasquez DO Work Phone: [facility] Work Phone: Start: 03-27-2025 End: 03-27-2025 Patient encounter procedure Yumiko Whitehead APRN.MARK Work Phone: [facility] Comment on above: Hospital discharge f ollow-up (Primary Dx); Diabetic foot ulcer associated with type 2 diabetes mellitus, unspecified laterality, unspecified part of foot, unspecified ulcer stage (HCC); Abnormality of gait; Falling episodes Start: 03-27-2025 End: 03-27-2025 ambulatory YUMIKO PODLOGGABRIELA Facility:[facility] Start: 03-26-2025 End: 03-26-2025 Telephone encounter Rishi Vasquez DO Work Phone: [facility] [place] Comment on above: Patient Update Start: 03-24-2025 End: 03-25-2025 Telephone encounter Rishi Vasquez DO Work Phone: [facility] [place] Comment on above: [facility] PT POC Start: 03-23-2025 End: 03-24-2025 Telephone encounter Rishi Vasquez DO Work Phone: Family [facility] [place] Comment on above: HH Nursing POC Start: 03-20-2025 End: 03-23-2025 Telephone encounter Rishi Vasquez DO Work Phone: Family [facility] [place] Comment on above: Orders Start: 03-19-2025 End: 03-19-[address] Phong Solomon MD -Cat Scan [facility] Work Phone: Start: 03-19-2025 End: 04-18-[address] Rishi Vasquez DO -Cardiac Rehab Work Phone: Start: 03-19-[address] Rishi ponce DO -Cardiac Rehab Work Phone: Start: 03-19-2025 End: 04-18-2025 Dr. Rishi Vasquez DO -Cardiac Rehab Work Phone: Start: 03-19-2025 End: 04-18-[address] Rishi Vasquez DO Work Phone: [facility] Work Phone: Start: 03-19-2025 End: 03-19-2025 ambulatory Rishi Vasquez Facility:[facility] Start: 03-13-2025 Non-patient / Non-visit Abena Fiore [facility] Start: 03-13-2025 Abena Fiore [facility] Start: 03-11-2025 End: 03-20-2025 Dr. Phong Solomon MD -Transitional Care Unit Start: 03-11-2025 ambulatory [facility] y:[facility] Start: 03-11-2025 End: 03-20-2025 Evaluation and management of inpatient Dr. Phong Solomon MD -Transitional Care Unit Start: 03-11-2025 Non-patient / Non-visit Dr. Broderick Dempsey MD -[place] [facility] Work Phone: Start: 03-11-2025 Dr. Broderick Dempsey MD -[facility] In[facility] Work Phone: Start: 03-10-2025 Non-patient / Non-visit Dr. Broderick Dempsey MD -[place] [facility] Work Phone: Start: 03-10-2025 Dr. Broderick Dempsey MD [facility] Inpatient [facility] Work Phone: Start: 03-10-2025 Non-patient / Non-visit Abena Fiore [facility] Start: 03-10-2025 Abena VYAS [facility] Start: 03-09-2025 Non-patient / Non-visit Dr. Russell dobbs MD -[facility] Start: 03-09-2025 Dr. Russell Clement MD -[facility] Start: 03-08-2025 Non-patient / Non-visit Dr. Broderick Dempsey MD [facility] Work Phone: Start: 03-08-2025 [facility]: Start: 03-07-2025 ambulatory Patel Irene Facility[facility] Start: 03-07-2025 End: 03-11-2025 Evaluation and management of inpatient Dr. Maddie Merchant MD -Medical Surgical 3 Work Phone: Start: 03-07-2025 End: 03-11-2025 Dr. Broderick Dempsey MD -Medical Surgical 3 Work Phone: Start: 02-26-2025 End: 02-26-[address] Rishi Vasquez DO Work Phone: [facility] Work Phone: Start: 02-26-2025 End: 02-26-[address] Patel Irene DPM -Laboratory, Specimen Work Phone: Start: 02-26-2025 End: 02-26-2025 Dr. Patel Irene DPM -Laboratory Specim en Work Phone: Start: 02-26-2025 End: 02-26-2025 ambulatory Rishi Vasquez Facility:[facility] Start: 02-17-2025 End: 03-18-[address] Rishi Vasquez DO -Cardiac Rehab Work Phone: Start: 02-17-[address] Rishi ponce DO -Cardiac Rehab Work Phone: Start: 02-17-2025 End: 03-18-2025 Dr. Rishi Vasquez DO -Cardiac Rehab Work Phone: Start: 02-17-2025 End: 03-18-2025 ambulatory Rishi Vasquez Facility:[facility] Start: 02-16-2025 End: 02-16-[address] Rishi Vasquez DO Work Phone: [facility] Work Phone: Start: 02-16-2025 End: 02-16-[address] Rishi Vasquez DO -Laboratory, Specimen Work Phone: Start: 02-16-2025 End: 02-16-2025 Ciaran Berry DPM -Laboratory Specime n Work Phone: Start: 02-16-2025 End: 02-16-2025 ambulatory Ciaran Berry Facility:[facility] Start: 02-05-2025 End: 02-16-[address] Rishi Vasquez DO Work Phone: [facility] Work Phone: Start: 02-05-2025 End: 02-16-[address] Rishi Vasquez DO -Cardiac Rehab Work Phone: Start: 02-05-2025 End: 02-16-2025 Dr. Rishi Vasquez DO -Cardiac Rehab Work Phone: Start: 01-06-2025 ambulatory Russell Clement Facility:[facility] Start: 01-06-2025 Non-patient / Non-visit Dr. Russell dobbs MD -[facility] Start: 01-06-2025 End: 01-06-[address] Brandon Membreno DPM -Cardiovascular Services Work Phone: Start: 01-06-2025 End: 01-06-2025 ambulatory Brandon Membreno Facility:[facility] Start: 12-30-2024 End: 12-30-[address] Patel Irene DPLebron -Laboratory, Specimen Work Phone: Start: 12-30-2024 End: 12-30-2024 ambulatory Patel Irene Facility:[facility] Start: 12-25-2024 End: 12-26-2024 Refill Rishi Vasquez DO Work Phone: [facility] Comment on above: Refill Request Start: 12-23-2024 End: 01-16-[address] Rishi Vasquez DO -Cardiac Rehab Work Phone: Start: 12-23-2024 End: 01-16-2025 ambulatory Rishi Vasquez Facility:[facility] Start: 12-18-2024 End: 12-19-2024 ambulatory Risih Vasquez Facility:[facility] Start: 12-18-2024 End: 12-19-[address] Rishi Vasquez DO -Cardiac Rehab Work Phone: Start: 12-17-2024 End: 12-17-[address] Brandon Membreno DPLebron -Laboratory, Specimen Work Phone: Start: 12-17-2024 End: 12-17-2024 ambulatory Brandon Membreno Facility:[facility] Start: 12-05-2024 End: 12-05-2024 Patient encounter procedure Rishi Vasqeuz DO Work Phone: [facility] Comment on above: Diabetes mellitus [...] Start: 12-05-2024 End: 12-05-2024 ambulatory RISHI VASQUEZ Facility:[facility] Start: 12-01-2024 End: 12-01-2024 ambulatory RISHI VASQUEZ Facility:[facility] Start: 11-29-2024 ambulatory Rishi Vasquez [facility] Start: 11-18-2024 End: 11-18-2024 ambulatory Rishi Vasquez Facility:[facility] Start: 11-18-2024 End: 11-18-[address] Rishi Vasquez DO -Cardiac Rehab Work Phone: Start: 10-14-2024 End: 10-18-2024 ambulatory Rishi Vasquez Facility:[facility] Start: 09-18-2024 End: 09-18-2024 ambulatory Rishi Vasquez Facility:[facility] Start: 09-10-2024 End: 09-15-2024 Telephone encounter Rishi Vasquez DO Work Phone: [facility] Comment on above: Patient Question Start: 09-05-2024 End: 09-05-2024 Patient encounter procedure [facility] [place] [facility] Start: 09-05-2024 End: 09-05-2024 ambulatory [facility] [place] Work Phone: [facility] [place] Start: 08-18-2024 End: 08-19-2024 Telephone encounter Rishi Del Rosarioon DO Work Phone: [facility] Comment on above: Patient Question (Fi sh oil - Geyser 3) Start: 08-16-2024 End: 08-18-2024 ambulatory Rishi Taterison DO Work Phone: [facility] Comment on above: OMEGA 3 FROM FISH OI L Start: 08-14-2024 End: 08-18-2024 ambulatory Rishi Vasquez Facility:[facility] Start: 08-08-2024 End: 08-12-2024 Telephone encounter Rishi Taterison DO Work Phone: [facility] Comment on above: Patient Update Start: 08-01-2024 End: 08-01-2024 ambulatory Curtis Prayson Facility:[facility] Start: 07-17-2024 End: 07-19-2024 ambulatory Rishi Vasquez Facility:[facility] Start: 06-13-2024 Telephone encounter Rishi Pichardo arrison DO Work Phone: [facility] Start: 06-10-2024 ambulatory No Pcp SUPERVISOR AGRICULTURAL EDUCATION [facility] [place] Start: 06-10-2024 Patient encounter procedure No Pcp SUPERVISOR AGRICULTURAL EDUCATION [facility] [place] Start: 06-04-2024 Documentation procedure Mammog rain Coordinator [facility] Start: 06-04-2024 Letter encounter Mammography Coordinator [facility] Start: 06-04-2024 Telephone encounter Rishi Pichardo alieison DO Work Phone: [facility] Comment on above: Results Start: 06-04-2024 End: 06-04-2024 Patient encounter procedure Rishi Taterison DO Work Phone: [facility] Comment on above: Chronic midline low back [...] Subsequent hospital visit by physician Screen Mammo [facility] Comment on above: Encounter for screen ing mammogram for malignant neoplasm of breast [Z12.31] Start: 05-19-2024 Telephone encounter Rishi julian DO Work Phone: [facility] Comment on above: Orders Start: 05-18-2024 ambulatory Rishi contreras DO Work Phone: [facility] Comment on above: Blood work Start: 03-22-2024 Refill Rishi contreras DO Work Phone: [facility] Comment on above: Refill Request Start: 03-20-2024 End: 03-20-2024 ambulatory Anselmo Ewamarilyn PT Work Phone: [facility] Comment on above: 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 Rishi Vasquez Work Phone: [facility] Work Phone: Start: 03-18-2024 End: 03-18-[address] Rishi Vasquez Work Phone: [facility]-Cardiac Rehab Work Phone: Start: 03-13-[address] Jim Vasquez Work Phone: [facility]-Cardiac Rehab Work Phone: Start: 03-11-2024 Non-patient / Non-visit Dr. Marcie Vasquez Work Phone: [facility] Start: 03-11-2024 End: 03-11-[address] Rishi Vasquez Work Phone: [facility] Work Phone: Start: 03-11-2024 End: 03-11-[address] 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 Rishi Vasquez Work Phone: [facility] Work Phone: Start: 02-14-2024 End: 02-17-[address] Rishi Vasquez Work Phone: [facility]-Cardiac Rehab Work Phone: Start: 02-07-2024 End: 02-07-[address] 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) Start: 01-28-2024 Brooke Andres APRN.FOURDRINIER WIRE WEAVER Work Phone: [facility] Comment on above: Refill Request Start: 01-23-2024 End: 01-23-2024 ambulatory Anselmo Golias PT Work Phone: [facility] Comment on above: 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) Start: 01-17-2024 End: 01-17-2024 ambulatory [facility] Work Phone: Start: 01-17-2024 End: 01-17-2024 Discharged Recurring [facility]-Cardiac Rehab Work Phone: Start: 01-15-2024 End: 01-15-2024 ambulatory Aneslmo Golias PT Work Phone: [facility] Comment on above: Chronic midline low back pain without sciatica Start: 01-14-2024 ambulatory Rishi contreras DO Work Phone: [facility] Start: 01-14-2024 Patient encounter procedure Rishi Vasquez DO Work Phone: [facility] Comment on above: APPOINTMENT WITH GEN EVGENY SURGEON Start: 01-10-2024 Telephone encounter Rishi julian DO Work Phone: [facility] Comment on above: Results Start: 12-27-2023 ambulatory Rishi contreras DO Work Phone: [facility] Comment on above: MEDICATION QUESTION Start: 12-27-2023 Telephone encounter Rishi julian DO Work Phone: [facility] Comment on above: Patient Update Start: 12-20-2023 End: 12-20-2023 Subsequent hospital visit by physician [facility] Work Phone: Radiology Comment on above: Multiple thyroid nod ules [E04.2] Start: 12-18-2023 End: 12-19-2023 Discharged Recurring [facility]-Cardiac Rehab Work Phone: Start: 12-10-2023 End: 12-10-2023 Subsequent hospital visit by physician [facility] Work Phone: Radiology Comment on above: Chronic midline low back pain without sciatica [M54.50, G89.29] Start: 11-15-2023 End: 11-18-2023 ambulatory [facility] Work Phone: Start: 11-15-2023 End: 11-18-2023 Discharged Recurring [facility]-Cardiac Re[facility] Work Phone: Start: 10-18-2023 End: 10-18-[address] Rishi Vasquez Work Phone: [facility] Work Phone: Start: 10-18-2023 End: 10-18-[address] Rishi Vasquez Work Phone: [facility]-Cardiac Rehab Work Phone: Start: 10-03-2023 Refill Rishi contreras DO Work Phone: [facility] Comment on above: Refill Request Start: 09-18-2023 End: 09-18-[address] Rishi Vasquez Work Phone: [facility] Work Phone: Start: 09-18-2023 End: 09-18-[address] Rishi Vasquez Work Phone: [facility]-Cardiac Rehab Work Phone: Start: 09-13-[address] Jim Vasquez Work Phone: [facility] Work Phone: Start: 08-31-2023 End: 08-31-2023 ambulatory [facility] [place] Work Phone: [facility] Start: 08-18-2023 Telephone encounter Rishi julian DO Work Phone: [facility] Comment on above: Results Start: 08-16-2023 End: 08-16-[address] Rishi Vasquez Work Phone: [facility]-Laboratory Work Phone: Start: 08-16-2023 End: 08-18-[address] Rishi Vasquez Work Phone: [facility] Work Phone: Start: 08-16-2023 End: 08-18-[address] Rishi Vasquez Work Phone: [facility]-Cardiac Rehab Work Phone: Start: 07-31-2023 Telephone encounter Rishi julian DO Work Phone: [facility] Comment on above: Results Start: 07-31-[address] Jim Vasquez Work Phone: [facility]-Cardiac Rehab Work Phone: Start: 07-26-2023 End: 07-26-[address] Rishi Vasquez Work Phone: [facility] Work Phone: Start: 07-26-2023 End: 07-26-[address] Rishi Vasquez Work Phone: [facility]-Laboratory, Specimen Work Phone: Start: 07-19-2023 End: 07-19-[address] Rishi Vasquez Work Phone: [facility] Work Phone: Start: 07-19-2023 End: 07-19-[address] Rishi Vasquez Work Phone: [facility]-Cardiac Rehab Work Phone: Start: 07-10-2023 Telephone encounter Danyelle allen PA-C Work Phone: [facility] Comment on above: Results Start: 07-10-2023 End: 07-10-2023 Subsequent hospital visit by physician Diagnostic Mammo [facility] Comment on above: Abnormal mammogram [ R92.8] Start: 07-03-2023 End: 07-03-[address] Rishi Vasquez Work Phone: [facility] Work Phone: Start: 06-14-2023 End: 06-18-[address] Rishi Vasquez Work Phone: [facility] Work Phone: Start: 06-14-2023 End: 06-18-[address] Rishi Vasquez Work Phone: [facility]-Cardiac Rehab Work Phone: Start: 06-14-[address] Jim Vasquez Work Phone: [facility]-Card[facility] Work Phone: Start: 06-12-2023 Non-patient / Non-visit Dr. Marcie Vasquez Work Phone: [facility] Start: 06-12-2023 End: 06-12-[address] Rishi Vasquez Work Phone: [facility] Work Phone: Start: 06-12-2023 End: 06-12-[address] Rishi Vasquez Work Phone: [facility]-Cardiovascul ar Services Work Phone: Start: 06-04-2023 End: 06-04-2023 Patient encounter procedure Rishi Vasquez DO Work Phone: [facility] Comment on above: Dysuria (Primary Dx) ; Acute cystitis with hematuria; Peripheral vascular occlusive disease (HCC); 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); CKD stage G3b/A1, GFR 30-44 and albumin creatinine ratio <30 mg/g (HCC); Dyslipidemia (high LDL; low HDL); Vitamin D deficiency; Multinodular thyroid; Essential hypertension; Arthritis, multiple joint involvement Start: 05-29-2023 Documentation procedure Mammog rain Coordinator [facility] Start: 05-29-2023 Letter encounter Mammography Coordinator [facility] Start: 05-29-2023 Telephone encounter Danyelle allen PA-C Work Phone: [facility] Comment on above: Results Start: 05-29-2023 End: 05-29-2023 Subsequent hospital visit by physician Screen Mammo [facility] Comment on above: Encounter for screen ing mammogram for malignant neoplasm of breast [Z12.31] Start: 05-27-2023 Refill Rishi contreras DO Work Phone: [facility] Comment on above: Refill Request Start: 05-17-2023 End: 05-18-[address] Rishi Vasquez Work Phone: [facility] Work Phone: Start: 05-17-2023 End: 05-18-[address] Rishi Vasquez Work Phone: [facility]-Cardiac Rehab Work Phone: Start: 04-20-2023 End: 04-20-[address] Rishi Vasquez Work Phone: [facility] Work Phone: Start: 04-17-2023 End: 04-18-2023 ambulatory [facility] Work Phone: Start: 04-17-2023 End: 04-18-2023 Discharged Recurring [facility] Start: 03-15-2023 End: 03-18-2023 ambulatory [facility] Work Phone: Start: 03-15-2023 End: 03-18-2023 Discharged Recurring [facility] Start: 03-12-2023 Telephone encounter Rishi julian DO Work Phone: [facility] Comment on above: Release Of Medical R ecords Start: 02-27-2023 ambulatory Rishi contreras DO Work Phone: Internal Medicine [facility] Start: 02-15-2023 End: 02-16-[address] Rishi Vasquez Work Phone: [facility] Work Phone: Start: 02-15-2023 End: 02-16-[address] Rishi Vasquez Work Phone: [facility]Cardiac Re[facility] Start: 02-05-2023 ambulatory Rishi contreras DO Work Phone: [facility] Comment on above: MAMOGRAM Start: 01-22-2023 Telephone encounter Rishi julian DO Work Phone: [facility] Comment on above: Appointment; Phuong VYAS Start: 01-16-2023 End: 01-16-[address] Rishi Vasquez Work Phone: [facility] Work Phone: Start: 01-16-2023 End: 01-16-[address] Rishi Vasquez Work Phone: [facility] Start: 01-08-2023 Refill Clary Andres APRN.CNP Work Phone: [facility] Comment on above: Refill Request Start: 01-04-2023 Telephone encounter Rishi julian DO Work Phone: [facility] Comment on above: Results Start: 12-29-2022 End: 12-29-2022 Subsequent hospital visit by physician [facility] Work Phone: Nuclear Medicine Comment on above: Abnormal thyroid fun ction test [R94.6] Start: 12-28-2022 End: 12-28-2022 Subsequent hospital visit by physician [facility] Work Phone: Nuclear Medicine Comment on above: Abnormal thyroid fun ction test [R94.6] Start: 12-26-2022 Telephone encounter Rishi julian DO Work Phone: [facility] Comment on above: Results Start: 12-20-2022 End: 12-20-2022 Subsequent hospital visit by physician [facility] Work Phone: Radiology Comment on above: Abnormal thyroid fun ction test [R94.6] Start: 12-19-2022 End: 12-19-[address] Rishi Vasquez Work Phone: [facility] Work Phone: Start: 12-19-2022 End: 12-19-[address] Rishi Vasquez Work Phone: [facility] Start: 12-07-2022 Telephone encounter Rishi julian DO Work Phone: [facility] Comment on above: testing question Start: 12-05-2022 End: 12-05-2022 Patient encounter procedure Rishi Vasquez DO Work Phone: [facility] Comment on above: Diabetes mellitus ty pe 2 with peripheral artery disease (HCC) (Primary Dx); Peripheral vascular occlusive disease (HCC); Dyslipidemia (high LDL; low HDL); Essential hypertension; Dizziness; Carotid atherosclerosis, bilateral; Biceps rupture, proximal, left, initial encounter; Chronic kidney disease, stage 3a (HCC) Start: 11-16-2022 End: 11-18-[address] Rishi Vasquez Work Phone: [facility] Work Phone: Start: 11-16-2022 End: 11-18-[address] Rishi Vasquez Work Phone: [facility] Start: 11-02-[address] Jim Vasquez Work Phone: [facility] Start: 10-27-2022 Non-patient / Non-visit Dr. Marcie Vasquez Work Phone: [facility] Start: 10-27-2022 End: 10-27-[address] Rishi Vasquez Work Phone: [facility] Work Phone: Start: 10-27-2022 End: 10-27-[address] Rishi Vasquez Work Phone: [facility]Cardiov[facility] Start: 10-17-2022 End: 10-18-[address] Rishi Vasquez Work Phone: [facility] Work Phone: Start: 10-17-2022 End: 10-18-[address] Rishi Vasquez Work Phone: [facility] Start: 09-23-2022 End: 09-23-2022 Patient encounter procedure Camille Mitchell PA-C Work Phone: [facility] Comment on above: Acute cystitis with hematuria (Primary Dx) Start: 09-14-2022 End: 09-18-[address] Rishi Vasquez Work Phone: [facility] Work Phone: Start: 09-14-2022 End: 09-18-[address] Rishi Vasquez Work Phone: [facility] Start: 09-09-2022 End: 09-09-2022 ambulatory [facility] [place] Work Phone: [facility] Comment on above: Arrived Start: 09-06-2022 Telephone encounter Rishi julian DO Work Phone: [facility] Comment on above: Results Start: 08-17-2022 End: 08-18-[address] Rishi Vasquez Work Phone: [facility] Work Phone: Start: 08-17-2022 End: 08-18-[address] Rishi Vasquez Work Phone: [facility] Start: 08-15-2022 End: 08-15-2022 Subsequent hospital visit by physician [facility] Work Phone: Radiology Comment on above: Injury of sternum, i nitial encounter [S29.9XXA] Start: 08-15-2022 End: 08-15-2022 Patient encounter procedure Camille Mitchell PA-C Work Phone: [facility] Comment on above: Injury of sternum, i nitial encounter (Primary Dx); Wrist injury, right, initial encounter Start: 08-08-2022 End: 08-08-[address] Rishi Vasquez Work Phone: [facility] Start: 07-18-2022 End: 07-19-[address] Rishi Vasquez Work Phone: [facility] Work Phone: Start: 07-18-2022 End: 07-19-[address] Rishi Vasquez Work Phone: [facility] Start: 06-29-2022 End: 06-29-[address] Rishi Vasquez Work Phone: [facility] Start: 06-22-2022 Non-patient / Non-visit Dr. Marcie Vasquez Work Phone: [facility] Start: 06-22-2022 End: 06-22-[address] Rishi Vasquez Work Phone: [facility] Start: 06-17-2022 End: 06-17-2022 Subsequent hospital visit by physician [facility] Work Phone: Radiology Comment on above: Acute pain of right shoulder [M25.511] Start: 06-17-2022 End: 06-17-2022 Patient encounter procedure Kena Sims APRN.CNP Work Phone: [facility] Comment on above: Acute pain of right shoulder (Primary Dx) Start: 06-15-2022 End: 06-18-2022 Discharged Recurring [facility] Start: 06-05-2022 Documentation procedure Mammog rain Coordinator [facility] Start: 06-05-2022 Letter encounter Mammography Coordinator [facility] Start: 06-05-2022 Telephone encounter Yani Cid APRN.CNP Work Phone: [facility] [place] Comment on above: Results; Appointment Start: 06-05-2022 End: 06-05-2022 Subsequent hospital visit by physician Screen Mammo [facility] Comment on above: Encounter for screen ing mammogram for malignant neoplasm of breast [Z12.31] Start: 05-31-2022 End: 05-31-2022 Patient encounter procedure Rishi Vasquez DO Work Phone: [facility] [place] Comment on above: Diabetes mellitus ty pe 2 with peripheral artery disease (HCC) (Primary Dx); Peripheral vascular occlusive disease (HCC); Vitamin D deficiency; Stage 3 chronic kidney disease, unspecified whether stage 3a or 3b CKD (HCC); Essential hypertension; Dyslipidemia (high LDL; low HDL); Arthritis, multiple joint involvement; Coronary artery disease involving [place] heart, unspecified vessel or lesion type, unspecified whether angina present; Fatigue, unspecified type Start: 05-24-2022 Telephone encounter Rishi julian DO Work Phone: General Surgery Comment on above: Outpatient [place] [facility] Start: 05-18-2022 End: 05-18-2022 Discharged Recurring [facility] Start: 05-01-2022 Refill Rishi Wright son DO Work Phone: [facility] Comment on above: Refill Request Start: 04-25-2022 ambulatory Rishi Wright son DO Work Phone: [facility] Comment on above: BLOOD WORK Start: 04-21-2022 Refill Yani mcclure APRN.[employer] Work Phone: [facility] Comment on above: Refill Request Start: 04-18-2022 End: 04-18-[address] Rishi Vasquez Work Phone: [facility] Start: 03-22-2022 Refill Rishi Wright son DO Work Phone: [facility] Comment on above: Refill Request Start: 03-16-2022 End: 03-18-[address] Rishi Vasquez Work Phone: [facility] Start: 02-24-2022 Telephone encounter Yani Cid YAEL Work Phone: [facility] Comment on above: Results Start: 02-16-2022 End: 02-16-[address] Rishi Vasquez Work Phone: [facility] Start: 02-07-2022 End: 02-07-[address] Rishi Vasquez Work Phone: [facility] Start: 01-20-2022 Non-patient / Non-visit Dr. Marcie Vasquez Work Phone: [facility] Start: 01-20-2022 End: 01-20-2022 Admission to same day surgery center Dr. Rishi Vasquez Work Phone: [facility] Start: 01-10-2022 End: 01-16-[address] Rishi Vasquez Work Phone: [facility] Start: 12-29-2021 End: 12-29-[address] Rishi Vasquez Work Phone: [facility] Start: 12-15-2021 End: 12-19-[address] Rishi Vasquez Work Phone: [facility] Start: 11-17-2021 End: 11-18-[address] [facility] Date Procedure Procedure Detail Performing Clinician Start: 07-09-[address] Rishi Vasquez DO Work Phone: Start: 07-08-2025 Measurement of occult blood in stool specimen using immunoassay Dr. Rishi Vasquez DO Work Phone: Start: 07-08-2025 Blood count smear mcrscp w/mnl difrntl wbc count Dr. Rishi Vasquez DO Work Phone: Start: 07-08-[address] Jim Vasquez DO Work Phone: Start: 07-08-2025 Mean corpuscular hemoglobin concentration determination Dr. Rishi Vasquez DO Work Phone: Start: 07-08-2025 Nucleated red blood cell count procedure Dr. Rishi Vasquez DO Work Phone: Start: 07-08-2025 Platelet mean volume determination Dr. Rishi Vasquez DO Work Phone: Start: 06-30-2025 Carbon dioxide measurement, partial pressure Dr. Rishi Vasquez DO Work Phone: Start: 06-30-2025 Gases blood o2 saturation only direct natalia Dr. Rishi Vasquez DO Work Phone: Start: 06-30-2025 Measurement of partial pressure of oxygen in blood Dr. Rishi Vasquez DO Work Phone: Start: 06-30-2025 Coagulation time, activated Dr. Rishi Vasquez DO Work Phone: Start: 06-30-2025 Femoral-popliteal artery bypass graft Dr. Rishi Vasquez DO Work Phone: Start: 06-23-2025 Blood count smear mcrscp w/mnl [...] 05-22-2025 Mean corpuscular hemoglobin concentration determination Dr. Rishi Vasquez DO Work Phone: Start: 05-22-2025 Nucleated [...] angiography of chest with contrast Dr. Rishi Vsaquez DO Work Phone: Start: 05-18-2025 CT of [...] red blood cell count procedure Dr. Rishi Vasuqez DO Work Phone: Start: 05-17-2025 Platelet mean [...] Total iron binding capacity measurement Dr. Rishi Vasquze DO Work Phone: Comment on above: Test [...] Phone: Start: 07-26-2023 Microbial culture, routine Dr. Rihsi Vasquez Work Phone: Start: 07-26-2023 Microscopic observation [...] Start: 05-29-2023 End: 05-29-2023 Mammography Clary Andres APRN.[employer] Work Phone: Start: 12-29-2022 Thyroid uptake w/blood flow sngle/mult jamari natalia Rishi Del Rosarioon DO Work Phone: Start: 12-20-2022 Us soft tissue head & neck real time imge docm Rishi Del Rosarioon DO Work Phone: Start: 09-23-2022 Urnls dip stick/tablet rgnt auto w/o microscopy Patel Aquino SUPERVISOR AGRICULTURAL EDUCATION.[employer] W[employer] WEAVER Work Phone: Start: 09-09-2022 INFLUENZA SEASONAL QUADRIVALENT HIGH DOSE AGE 65+ Rishi Taterison DO Work Phone: Start: 08-15-2022 Radex wrist complete minimum 3 views Camille Mitchell PA-C Work Phone: Start: 06-17-2022 Radex shoulder complete minimum 2 views Kena Schrader SUPERVISOR AGRICULTURAL EDUCATION.[employer] W[employer] WEAVER Work Phone: Start: 06-05-2022 End: 06-05-2022 Screening mammography bi 2-view breast inc cad Rishi Del Rosarioon DO Work Phone: Start: 05-31-2022 Hemoglobin A1c/Hemoglobin.total in Blood Rishi aVsquez DO Work Phone: Start: 01-20-2022 Colonoscopy Yani Watts SUPERVISOR AGRICULTURAL EDUCATION.[employer] W[employer] WEAVER Work Phone: Start: 06-10-2021 Mammography Yani Watts SUPERVISOR AGRICULTURAL EDUCATION.[employer] W[employer] WEAVER Work Phone: Start: 06-11-2017 End: 06-11-2017 ISAC [...] End: 02-21-2017 C reactive protein (hsCRP) Marly oliva MD Start: 02-19-2017 End: 02-21-2017 Erythrocyte sedimentation rate Marly Patino MD Start: 02-06-2017 End: 02-08-2017 Thyroperoxidase Ab [Units/volume] in Serum or Plasma Rebekah Lorenzalexus BARAJAS Work Phone: Start: 02-06-2017 End: 02-07-2017 Thyrotropin [Units/volume] in Serum or Plasma Rebekah Lorenzalexus BARAJAS Work Phone: Start: 02-06-2017 End: 02-07-2017 Thyroxine (T4) free [Mass/volume] in Serum or Plasma Rebekah Lorenzalexus BARAJAS Work Phone: Start: 02-06-2017 End: 02-07-2017 Triiodothyronine (T3) Free [Mass/volume] in Serum or Plasma Rebekah Castrejon POSTAL SERVICE CLERK Work Phone: Start: 02-06-2017 End: 02-06-2017 Dietary management education, guidance, and counseling Shaina Serna LPN Start: 02-06-2017 End: 02-07-2017 Thyroid stimulating hormone (TSH) Rebekah Castrejon POSTAL SERVICE CLERK Work Phone: Start: 02-06-2017 End: 02-08-2017 Thyroperoxidase antibody Rebekah Saud Gerdaalexus BARAJAS Work Phone: Start: 02-06-2017 End: 02-07-2017 Thyroxine (T4) free Rebekah J Lucía POSTAL SERVICE CLERK Work Phone: Start: 02-06-2017 End: 02-07-2017 Triiodothyronine (T3) free Rebekah Villavicencio Giovanni k POSTAL SERVICE CLERK Work Phone: Start: 01-08-2017 End: 01-15-2017 *BMP [...] End: 01-15-2017 C reactive protein (hsCRP) Marly oliva MD Start: 01-08-2017 End: 01-15-2017 Erythrocyte sedimentation rate Marly Patino MD Start: 01-08-2017 End: 01-15-2017 Mri lower extremity w/o dye Marly J Sig catrina LUNDBERG Start: 01-04-2017 End: 01-15-2017 *CBC with Differential [...] End: 01-15-2017 C reactive protein (hsCRP) Marly oliva MD Start: 01-04-2017 End: 01-15-2017 Erythrocyte sedimentation [...] End: 01-02-2017 C reactive protein (hsCRP) Marly Villavicencio Pat oliva MD Start: 01-01-2017 End: 01-02-2017 Erythrocyte sedimentation rate Marly Saud Patino MD Start: 12-20-2016 End: 12-20-2016 Radex foot complete minimum 3 views Marly Saud Patino MD Start: 12-20-2016 End: 12-20-2016 Colonoscopy Shaina Serna LPN Start: 12-20-2016 End: 12-20-2016 X-ray exam of foot Marly Saud Patino MD Start: 12-18-2016 End: 12-20-2016 *CDIF - Clostridium Diff. Toxin Stool Marly Patino MD Start: 12-18-2016 End: 12-20-2016 *CDIF - Clostridium Diff. Toxin Stool Marly Patino MD Start: 12-13-2016 End: 12-15-2016 Radex foot complete minimum 3 views Marly Saud Patino MD Start: 12-13-2016 End: 12-15-2016 X-ray exam of foot Marly Saud Patino MD Start: 12-05-2016 End: 12-05-2016 ISAC Ch MD Work Phone: Start: 12-05-2016 End: 12-05-2016 Follow Up Appt 6 months Brandon Ch MD Work Phone: Start: 12-05-2016 End: 12-05-2016 ISAC Ch MD Work Phone: Start: 12-05-2016 End: 12-05-2016 Follow Up Appt 6 months Brandon Ch MD Work Phone: Start: 11-22-2016 End: 12-04-2016 *IGSUB IMMUN Subclas-IGG1,2,3 &4 Marly Patino MD Start: 11-22-2016 End: 11-29-2016 Debridement subcutaneous tissue 20 sq cm/< Marly Patino MD Start: 11-22-2016 End: 12-04-2016 *IGSUB IMMUN Subclas-IGG1,2,3 &4 Marly Patino MD Start: 11-22-2016 End: 11-29-2016 Dalila subq tissue 20 sq cm/< Marly oliva MD Start: 09-22-2016 End: 09-29-2016 Debridement subcutaneous tissue 20 sq cm/< Marly Patino MD Start: 09-22-2016 End: 09-29-2016 Dalila subq tissue 20 sq cm/< Marly oliva MD Start: 11-30-2015 End: 11-30-2015 ISAC Ch MD [...] End: 06-12-2014 Follow Up Appt Other Ira Lebron YANG LopezC Work Phone: Start: 06-12-2014 End: 06-18-2014 24 hour holter monitor Ira Lebron SARIAH Lopez Work Phone: Start: 06-12-2014 End: 06-22-2014 Carotid duplex YANG RodriguezC Work Phone: Start: 06-12-2014 End: 06-12-2014 Follow Up Appt Other Ira Lebron SARIAH Lopez Work Phone: Start: 02-02-2014 End: 04-27-2014 Cardiac [...] MD Work Phone: Start: 01-12-2014 End: 01-12-2014 TENZINN Brandon Ch MD Work Phone: Start: 01-12-2014 [...] RSV Vaccine (1 - 1-dose 75+ series) [facility] Start: 01-20-2027 Colonoscopy COLONOSCOPY [facility] Start: 01-20-2027 COLORECTAL CANCER SCREENING COLORECTAL CANCER SCREENING [facility] Start: 01-20-2027 Screening for malignant neoplasm of colon [facility] Start: 04-30-2026 Annual PCP Team Chronic Disease Visit Annual PCP Team Chronic Disease Visit [facility] Start: 04-30-2026 Covid-19 Vaccine ( season) Covid-19 Vaccine () [facility] Comment on above: Postponed from 07/20/2024 (Declined at t his time) Start: 04-30-2026 Shingrix Vaccine (1 of 2) Shingrix Vaccine (1 of 2) [facility] Comment on above: Postponed from 2002 (Declined at t his time) Start: 04-30-2026 Urine microalbumin profile DTaP,Tdap,Td Vaccine (2 - Td or Tdap) [facility] Comment on above: Postponed from 04/24/2023 (Declined at t his time) Start: 03-27-2026 Annual PCP Team Chronic Disease Visit Annual PCP Team Chronic Disease Visit [facility] Start: 12-13-2025 Hemoglobin A1c measurement HbA1C [facility] Start: 12-05-2025 Annual PCP Team Chronic Disease Visit Annual PCP Team Chronic Disease Visit [facility] Start: 12-05-2025 BP Controlled (<130/80) BP Controlled (<130/80) [facility] Start: 12-01-2025 Complete blood count Hemoglobin/Hematocrit [facility] Start: 12-01-2025 Creatinine measurement Serum Creatinine [facility] Start: 12-01-2025 Hepatitis B surface antibody level LDL Cholesterol [facility] Start: 07-20-2025 Influenza vaccination Influenza Vaccine (#1) [facility] Start: 07-10-2025 [facility] Start: 07-09-2025 [facility] Start: 07-09-2025 Administration of blood product [facility] Start: 07-09-2025 End: 07-09-2025 [facility] Start: 07-08-2025 Administration of blood product [facility] Start: 07-08-2025 Application of ice collar, cap or bag [facility] Start: 07-01-2025 Development of care plan [facility] Start: 06-30-2025 Following clinical pathway protocol [facility] Start: 06-30-2025 Peripherally inserted central catheter care [facility] Start: 06-30-2025 Patient discharge [facility] Start: 06-30-2025 Gas panel - Arterial blood [facility] Start: 06-30-2025 Patient discharge [facility] Start: 06-29-2025 Developing a treatment plan [facility] Start: 06-29-2025 Leukocyte reduced red blood cells [facility] Start: 06-29-2025 [facility] Start: 06-26-2025 [facility] Start: 06-19-2025 Referral to vascular surgeon [facility] Start: 06-17-2025 Wound care [facility] Start: 06-16-2025 End: 06-16-2025 Patient encounter procedure 06/16/2025 12:00 PM EDT Office Visit [facility] [address] [place] [address] Rishi Vasquez, [address] [place] [address] LVM 1st attempt Physical [facility] Comment on above: LVM 1st attempt Physical Start: 06-16-2025 Administration of blood product [facility] Start: 06-12-2025 [facility] Start: 06-11-2025 [facility] Start: 06-11-2025 [facility] Start: 06-11-2025 [facility] Start: 06-10-2025 Following clinical pathway protocol [facility] Start: 06-10-2025 Peripherally inserted central catheter care [facility] Start: 06-10-2025 Microbial culture, routine [facility] Start: 06-10-2025 Urine culture [facility] Start: 06-10-2025 Source specific culture [facility] Start: 06-10-2025 End: 06-10-2025 [facility] Start: 06-10-2025 Enteric precautions [facility] Start: 06-09-2025 End: 06-09-2025 Patient encounter procedure 06/09/2025 9:00 AM EDT Office Visit [facility] [place] [address] [place] [address] Rishi Vasquez DO [address] [place] [address] Physical [facility] Comment on above: Physical Start: 06-08-2025 End: 06-08-2025 ambulatory 06/08/2025 8:30 AM EDT Results Only [facility] [address] [place] [address] [facility] Start: 06-08-2025 Patient discharge [facility] Start: 06-06-2025 [facility] Start: 06-05-2025 Endoscopy upper small intestine w/biopsy [facility] Start: 06-05-2025 Enteroscopy > 2nd prtn w/control bleeding [facility] Start: 06-04-2025 [facility] Start: 06-04-2025 Annual PCP Team Chronic Disease Visit Annual PCP Team Chronic Disease Visit [facility] Start: 06-04-2025 BP Controlled (<130/80) BP Controlled (<130/80) [facility] Start: 06-04-2025 End: 06-04-2025 Patient encounter procedure 06/04/2025 9:30 AM EDT Appointment Mammogram [address] [address] Encounter for screening mammogram for malignant neoplasm of breast [Z12.31] Mammogram Comment on above: Encounter for screening mammogram for ma lignant neoplasm of breast [Z12.31] Start: 06-04-2025 Consultation [facility] Start: 06-03-2025 Referral to gastroenterology service [facility] Start: 06-03-2025 Referral to rotational moulding operator [facility] Start: 06-03-2025 Screening for malignant neoplasm of breast Mammogram Screening [facility] Start: 06-03-2025 Patient referral to dietitian [facility] Start: 06-02-2025 [facility] Start: 06-02-2025 Glaucoma screening Dilated Retinal Exam [facility] Start: 06-02-2025 Development of care plan [facility] Start: 06-02-2025 Administration of blood product [facility] Start: 06-02-2025 [facility] Start: 06-02-2025 Administration of blood product [facility] Start: 06-02-2025 [facility] Start: 06-02-2025 Following clinical pathway protocol [facility] Start: 06-02-2025 Verification routine [facility] Start: 06-01-2025 End: 06-01-2025 [facility] Start: 06-01-2025 Contact precautions [facility] Start: 06-01-2025 End: 06-01-2025 Wound care [facility] Start: 06-01-2025 Consultation for treatment [facility] Start: 06-01-2025 Admission procedure [facility] Start: 06-01-2025 Measuring intake and output [facility] Start: 06-01-2025 Patient referral to dietitian [facility] Start: 06-01-2025 Referral to occupational therapist [facility] Start: 06-01-2025 Referral to service [facility] Start: 06-01-2025 Vital signs measurements [facility] Start: 05-31-2025 Hemoglobin A1c measurement HbA1C [facility] Start: 05-31-2025 Patient discharge [facility] Start: 05-30-2025 Complete blood count Hemoglobin/Hematocrit [facility] Start: 05-30-2025 Creatinine measurement Serum Creatinine [facility] Start: 05-30-2025 Hepatitis B surface antibody level LDL Cholesterol [facility] Start: 05-29-2025 Consultation for treatment [facility] Start: 05-28-2025 Care planning and problem solving actions [facility] Start: 05-28-2025 Introduction of urinary catheter [facility] Start: 05-28-2025 Removal of urinary catheter [facility] Start: 05-28-2025 Administration of blood product [facility] Start: 05-27-2025 End: 05-27-2025 [facility] Start: 05-27-2025 Prothrombin time [facility] Start: 05-26-2025 End: 05-27-2025 [facility] Start: 05-26-2025 Ambulation without limitation [facility] Start: 05-26-2025 Assessment of risk of venous thromboembolism [facility] Start: 05-26-2025 Elevation of head of bed [facility] Start: 05-26-2025 Insertion of catheter into peripheral vein [facility] Start: 05-26-2025 Measuring intake and output [facility] Start: 05-26-2025 Patient referral to dietitian [facility] Start: 05-26-2025 Providing care according to standard [facility] Start: 05-26-2025 End: 05-27-2025 Removal of urinary catheter [facility] Start: 05-26-2025 Vital signs measurements [facility] Start: 05-26-2025 Administration of blood product [facility] Start: 05-26-2025 Transfusion of red blood cells [facility] Start: 05-25-2025 Following clinical pathway protocol [facility] Start: 05-25-2025 Admission procedure [facility] Start: 05-24-2025 Wound care [facility] Start: 05-24-2025 Referral to vascular surgeon [facility] Start: 05-23-2025 [facility] Start: 05-23-2025 [facility] Start: 05-23-2025 Referral to rotational moulding operator [facility] Start: 05-22-2025 Wound care [facility] Start: 05-22-2025 Ambulation without limitation [facility] Start: 05-22-2025 Assessment of risk of venous thromboembolism [facility] Start: 05-22-2025 Care regimes management [facility] Start: 05-22-2025 Insertion of catheter into peripheral vein [facility] Start: 05-22-2025 Notification of physician [facility] Start: 05-22-2025 Providing care according to standard [facility] Start: 05-22-2025 Referral to occupational therapist [facility] Start: 05-22-2025 Referral to service [facility] Start: 05-22-2025 End: 05-22-2025 Following clinical pathway protocol [facility] Start: 05-22-2025 End: 05-22-2025 [facility] Start: 05-22-2025 Hospital admission, emergency, from emergency room, medical nature [facility] Start: 05-22-2025 Verification routine [facility] Start: 05-22-2025 Admission procedure [facility] Start: 05-22-2025 [facility] Start: 05-22-2025 Patient referral to dietitian [facility] Start: 05-21-2025 Blood culture [facility] Start: 05-21-2025 End: 05-21-2025 [facility] Start: 05-21-2025 Patient discharge [facility] Start: 05-21-2025 Referral to service [facility] Start: 05-21-2025 Referral to service [facility] Start: 05-20-2025 Microbial culture, routine [facility] Start: 05-20-2025 End: 05-20-2025 [facility] Start: 05-20-2025 Mycology culture [facility] Start: 05-20-2025 Source specific culture [facility] Start: 05-19-2025 Serum inorganic phosphate measurement [facility] Start: 05-19-2025 [facility] Start: 05-18-2025 Urine culture [facility] Start: 05-18-2025 End: 05-18-2025 [facility] Start: 05-18-2025 Catheterization of vein [facility] Start: 05-18-2025 Consultation [facility] Start: 05-18-2025 Application of intermittent pneumatic compression device [facility] Start: 05-18-2025 Bacterial nucleic acid assay [facility] Start: 05-18-2025 Assessment of risk of venous thromboembolism [facility] Start: 05-18-2025 Care regimes management [facility] Start: 05-18-2025 Consultation [facility] Start: 05-18-2025 Consultation for treatment [facility] Start: 05-18-2025 Elevation of affected extremity [facility] Start: 05-18-2025 Fall prevention [facility] Start: 05-18-2025 Incentive spirometry [facility] Start: 05-18-2025 Inhalation therapy procedure [facility] Start: 05-18-2025 Insertion of catheter into peripheral vein [facility] Start: 05-18-2025 Introduction of urinary catheter [facility] Start: 05-18-2025 Measuring intake and output [facility] Start: 05-18-2025 Notification of physician [facility] Start: 05-18-2025 Oxygen therapy [facility] Start: 05-18-2025 Patient referral to dietitian [facility] Start: 05-18-2025 Providing care according to standard [facility] Start: 05-18-2025 Provision of activity privileges [facility] Start: 05-18-2025 Referral to occupational therapist [facility] Start: 05-18-2025 Referral to rotational moulding operator [facility] Start: 05-18-2025 Referral to service [facility] Start: 05-18-2025 Referral to vascular surgeon [facility] Start: 05-18-2025 Wound care [facility] Start: 05-18-2025 Following clinical pathway protocol [facility] Start: 05-18-2025 Serum inorganic phosphate measurement [facility] Start: 05-18-2025 Verification routine [facility] Start: 05-18-2025 Admission procedure [facility] Start: 05-18-2025 Hospital admission, emergency, from emergency room, medical nature [facility] Start: 05-18-2025 [facility] Start: 05-17-2025 End: 05-17-2025 [facility] Start: 05-17-2025 Blood culture [facility] Start: 04-15-2025 Patient discharge [facility] Start: 04-02-2025 Diabetic foot examination Diabetic Foot Exam [facility] Start: 03-27-2025 End: 03-27-2025 Patient encounter procedure 03/27/2025 10:00 AM EDT Office Visit [facility] [address] [place] [address] PodlogarYumiko APRN.[employer] WIRE WEAVER [address] [place] [address] Discharged 03/20/25 [facility] - Adult failure to thrive, falls, rabdo (no availability within recommended one week F/U with PCP dyad) [facility] Comment on above: Discharged 03/20/25 [facility] - Adult failure to thrive, falls, rabdo (no availability within recommended one week F/U with PCP dyad) Start: 03-20-2025 Patient discharge [facility] Start: 03-19-2025 Developing a treatment plan [facility] Start: 03-19-2025 Development of care plan [facility] Start: 03-19-2025 End: 03-19-2025 [facility] Start: 03-19-2025 End: 03-19-2025 Administration of blood product [facility] Start: 03-18-2025 Referral to service [facility] Start: 03-17-2025 [facility] Start: 03-12-2025 Application of intermittent pneumatic compression device [facility] Start: 03-12-2025 Development of care plan [facility] Start: 03-12-2025 Developing a treatment plan [facility] Start: 03-11-2025 Consultation [facility] Start: 03-11-2025 Referral to rotational moulding operator [facility] Start: 03-11-2025 Referral to vascular surgeon [facility] Start: 03-11-2025 Contact precautions [facility] Start: 03-11-2025 Wound care [facility] Start: 03-11-2025 Admission procedure [facility] Start: 03-11-2025 Introduction of urinary catheter [facility] Start: 03-11-2025 Measuring intake and output [facility] Start: 03-11-2025 Patient referral to dietitian [facility] Start: 03-11-2025 Referral to occupational therapist [facility] Start: 03-11-2025 Referral to service [facility] Start: 03-11-2025 Vital signs measurements [facility] Start: 03-11-2025 [facility] Start: 03-11-2025 End: 03-11-2025 Consultation for treatment [facility] Start: 03-11-2025 Following clinical pathway protocol [facility] Start: 03-11-2025 Patient discharge [facility] Start: 03-10-2025 Consultation [facility] Start: 03-08-2025 [facility] Start: 03-08-2025 Consultation [facility] Start: 03-08-2025 Referral to staking press operator [facility] Start: 03-08-2025 [facility] Start: 03-08-2025 Referral to vascular surgeon [facility] Start: 03-08-2025 Application of intermittent pneumatic compression device [facility] Start: 03-07-2025 Following clinical pathway protocol [facility] Start: 03-07-2025 Assessment of risk of venous thromboembolism [facility] Start: 03-07-2025 Care regimes management [facility] Start: 03-07-2025 Consultation for treatment [facility] Start: 03-07-2025 Elevation of affected extremity [facility] Start: 03-07-2025 Fall prevention [facility] Start: 03-07-2025 Insertion of catheter into peripheral vein [facility] Start: 03-07-2025 Introduction of urinary catheter [facility] Start: 03-07-2025 Measuring intake and output [facility] Start: 03-07-2025 Notification of physician [facility] Start: 03-07-2025 Patient referral to dietitian [facility] Start: 03-07-2025 Providing care according to standard [facility] Start: 03-07-2025 Provision of activity privileges [facility] Start: 03-07-2025 Referral to occupational therapist [facility] Start: 03-07-2025 Referral to rotational moulding operator [facility] Start: 03-07-2025 Referral to service [facility] Start: 03-07-2025 Wound care [facility] Start: 03-07-2025 End: 03-07-2025 [facility] Start: 03-07-2025 Admission procedure [facility] Start: 03-07-2025 Hospital admission, emergency, from emergency room, medical nature [facility] Start: 03-07-2025 End: 03-07-2025 [facility] Start: 03-07-2025 Bacteria identified in Urine by Culture Urine Culture [facility] Start: 03-07-2025 [facility] Start: 02-26-2025 Anaerobic microbial culture Anaerobic Culture [facility] Start: 02-26-2025 Source specific culture [facility] Start: 02-16-2025 [facility] Start: 02-16-2025 Microbial culture, routine Wound Culture [facility] Start: 02-16-2025 Microscopic observation [Identifier] in Unspecified specimen by Gram stain [facility] Start: 02-16-2025 Wound Culture Wound Culture [facility] Start: 12-05-2024 End: 03-06-2025 25-hydroxyvitamin D3 [Mass/volume] in Serum or Plasma VITAMIN D 25 HYDROXY Lab Routine Vitamin D deficiency Expected: 12/05/2024, Expires: 03/06/2025 [facility] Comment on above: Expected: 12/05/2024, Expires: Start: 12-05-2024 Annual PCP Team Chronic Disease Visit Annual PCP Team Chronic Disease Visit [facility] Start: 12-05-2024 End: 03-06-2025 CBC panel - Blood by Automated count COMPLETE BLOOD COUNT Lab Routine Peripheral vascular occlusive disease (HCC) Expected: 12/05/2024, Expires: 03/06/2025 [facility] Comment on above: Expected: 12/05/2024, Expires: Start: 12-05-2024 End: 03-06-2025 Cobalamin (Vitamin B12) [Mass/volume] in Serum or Plasma VITAMIN B12 Lab Routine 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) Expected: 12/05/2024, Expires: 03/06/2025 [facility] Comment on above: Expected: 12/05/2024, Expires: Start: 12-05-2024 End: 03-06-2025 Comprehensive metabolic 2000 panel - Serum or Plasma COMPREHENSIVE METABOLIC PANEL Lab Routine 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) Expected: 12/05/2024, Expires: 03/06/2025 [facility] Comment on above: Expected: 12/05/2024, Expires: Start: 12-05-2024 End: 03-06-2025 Hemoglobin A1c in Blood HEMOGLOBIN A1C Lab Routine 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) Expected: 12/05/2024, Expires: 03/06/2025 [facility] Work Phone: Comment on above: Expected: 12/05/2024, Expires: Start: 12-05-2024 End: 03-06-2025 Lipid 1996 panel - Serum or Plasma LIPID PANEL BASIC Lab Routine Dyslipidemia (high LDL; low HDL) Expected: 12/05/2024, Expires: 03/06/2025 [facility] Comment on above: Expected: 12/05/2024, Expires: Start: 12-05-2024 End: 03-06-2025 Thyrotropin [Units/volume] in Serum or Plasma THYROID STIMULATING HORMONE Lab Routine Multiple thyroid nodules Expected: 12/05/2024, Expires: 03/06/2025 [facility] Comment on above: Expected: 12/05/2024, Expires: Start: 12-05-2024 End: 03-06-2025 Thyroxine (T4) free [Mass/volume] in Serum or Plasma T4 FREE/FREE THYROXINE Lab Routine Multiple thyroid nodules Expected: 12/05/2024, Expires: 03/06/2025 [facility] Comment on above: Expected: 12/05/2024, Expires: Start: 12-05-2024 End: 12-05-2024 Patient encounter procedure 12/05/2024 9:00 AM EST Office Visit [facility] [address] [place] [address] Rishi Vasquez DO [address] [place] [address] 6 month follow up [facility] [place] Comment on above: 6 month follow up Start: 11-30-2024 Complete blood count Hemoglobin/Hematocrit [facility] Start: 11-30-2024 Creatinine measurement Serum Creatinine [facility] Start: 11-30-2024 Hemoglobin A1c measurement HbA1C [facility] Start: 11-30-2024 Hepatitis B surface antibody level LDL Cholesterol [facility] Start: 11-19-2024 Medicare Advantage Annual Wellness Visit Medicare Advantage Annual Wellness Visit [facility] Start: 11-15-2024 Glaucoma screening Dilated Retinal Exam [facility] Start: 09-05-2024 End: 09-05-2024 Patient encounter procedure 09/05/2024 9:20 AM EDT Immunization [facility] [address] [place] [address] [place], Immunization Clinic Nurse [address] [place] [address] FLU SHOT [facility] Comment on above: FLU SHOT Start: 07-20-2024 Covid-19 Vaccine ( season) Covid-19 Vaccine ( season) [facility] Start: 07-20-2024 Covid-19 Vaccine () Covid-19 Vaccine () [facility] Start: 07-20-2024 Influenza vaccination Influenza Vaccine (#1) [facility] Start: 06-04-2024 3 comp foot exam completed DIABETIC FOOT EXAM [facility] Start: 06-04-2024 ANNUAL PCP TEAM CHRONIC DISEASE VISIT ANNUAL PCP TEAM CHRONIC DISEASE VISIT [facility] Start: 06-04-2024 BP CONTROLLED (<130/80) BP CONTROLLED (<130/80) [facility] Start: 06-04-2024 Diabetic foot examination Diabetic Foot Exam [facility] Start: 06-04-2024 End: 06-04-2024 Patient encounter procedure 06/04/2024 9:40 AM EDT Office Visit [facility] [address] [place] [address] Rishi Vasquez DO [address] [place] [address] 6 month follow up [facility] [place] Comment on above: 6 month follow up Start: 06-03-2024 End: 06-03-2024 Patient encounter procedure 06/03/2024 9:30 AM EDT Appointment Mammogram [address] [place] [address] Encounter for screening mammogram for malignant neoplasm of breast [Z12.31] Mammogram Comment on above: Encounter for screening mammogram for ma lignant neoplasm of breast [Z12.31] Start: 05-30-2024 End: 08-29-2024 25-hydroxyvitamin D3 [Mass/volume] in Serum or Plasma VITAMIN D 25 HYDROXY Lab Routine Vitamin D deficiency Expected: 05/30/2024 (Approximate), Expires: 08/29/2024 [facility] Comment on above: Expected: 05/30/2024 (Approximate), Expi res: 08/29/2024 Start: 05-30-2024 End: 08-29-2024 CBC W Auto Differential panel - Blood COMPLETE BLOOD COUNT AND DIFFERENTIAL Lab Routine Essential hypertension Fatigue, unspecified type Expected: 05/30/2024 (Approximate), Expires: 08/29/2024 [facility] Comment on above: Expected: 05/30/2024 (Approximate), Expi res: 08/29/2024 Start: 05-30-2024 End: 08-29-2024 Comprehensive metabolic 2000 panel - Serum or Plasma COMPREHENSIVE METABOLIC PANEL Lab Routine Essential hypertension 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) CKD stage G3b/A1, GFR 30-44 and albumin creatinine ratio <30 mg/g (HCC) Dyslipidemia (high LDL; low HDL) Expected: 05/30/2024 (Approximate), Expires: 08/29/2024 [facility] Comment on above: Expected: 05/30/2024 (Approximate), Expi res: 08/29/2024 Start: 05-30-2024 End: 08-29-2024 Hemoglobin A1c in Blood HEMOGLOBIN A1C Lab Routine 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) Expected: 05/30/2024 (Approximate), Expires: 08/29/2024 [facility] Comment on above: Expected: 05/30/2024 (Approximate), Expi res: 08/29/2024 Start: 05-30-2024 Hemoglobin A1c measurement HbA1C [facility] Start: 05-30-2024 HEMOGLOBIN/HEMATOCRIT HEMOGLOBIN/HEMATOCRIT [facility] Start: 05-30-2024 Hepatitis B screening URINE ALBUMIN:CREATININE RATIO [facility] Start: 05-30-2024 Hepatitis B surface antibody level LDL CHOLESTEROL [facility] Start: 05-30-2024 End: 08-29-2024 Lipid 1996 panel - Serum or Plasma LIPID PANEL BASIC Lab Routine Essential hypertension 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) Dyslipidemia (high LDL; low HDL) Expected: 05/30/2024 (Approximate), Expires: 08/29/2024 [facility] Work Phone: Comment on above: Expected: 05/30/2024 (Approximate), Expi res: 08/29/2024 Start: 05-30-2024 SERUM CREATININE SERUM CREATININE [facility] Start: 05-30-2024 End: 08-29-2024 Thyrotropin [Units/volume] in Serum or Plasma THYROID STIMULATING HORMONE Lab Routine Multiple thyroid nodules Low TSH level Fatigue, unspecified type Expected: 05/30/2024 (Approximate), Expires: 08/29/2024 [facility] Comment on above: Expected: 05/30/2024 (Approximate), Expi res: 08/29/2024 Start: 05-30-2024 End: 08-29-2024 Thyroxine (T4) free [Mass/volume] in Serum or Plasma T4 FREE/FREE THYROXINE Lab Routine Multiple thyroid nodules Low TSH level Fatigue, unspecified type Expected: 05/30/2024 (Approximate), Expires: 08/29/2024 [facility] Comment on above: Expected: 05/30/2024 (Approximate), Expi res: 08/29/2024 Start: 05-30-2024 End: 08-29-2024 Triiodothyronine (T3) Free [Mass/volume] in Serum or Plasma T3, FREE Lab Routine Multiple thyroid nodules Low TSH level Fatigue, unspecified type Expected: 05/30/2024 (Approximate), Expires: 08/29/2024 [facility] Comment on above: Expected: 05/30/2024 (Approximate), Expi res: 08/29/2024 Start: 05-30-2024 End: 05-30-2024 ambulatory 05/30/2024 8:00 AM EDT Results Only [facility] [address] [place] [address] [facility] Start: 05-29-2024 Mammography [facility] Start: 05-29-2024 Screening for malignant neoplasm of breast Mammogram Screening [facility] Start: 04-16-2024 End: 04-16-2024 ambulatory 04/16/2024 4:45 PM EDT OT/PT/Speech Visit [facility] [address] [place] [id number] Anselmo Marr PT [address] [place] [address] test [facility] Comment on above: test Start: 03-25-2024 End: 03-25-2024 ambulatory 03/25/2024 9:30 AM EDT OT/PT/Speech Visit [facility] [address] [place] [address] Thomas Keisha, SUPERVISOR [employer] [address] [place] [address] M54.50,G89.29 (ICD-10-CM) - Chronic midline low back pain without sciatica [facility] Comment on above: M54.50,G89.29 (ICD-10-CM) - Chronic midl ine low back pain without sciatica Start: 03-20-2024 End: 03-20-2024 ambulatory 03/20/2024 10:00 AM EDT OT/PT/Speech Visit [facility] [address] [place] [address] Anselmo Marr, PT [address] [place] [address] M54.50,G89.29 (ICD-10-CM) - Chronic midline low back pain without sciatica [facility] Comment on above: M54.50,G89.29 (ICD-10-CM) - Chronic midl ine low back pain without sciatica Start: 12-14-2023 HEMOGLOBIN/HEMATOCRIT HEMOGLOBIN/HEMATOCRIT [facility] Start: 12-14-2023 SERUM CREATININE SERUM CREATININE [facility] Start: 12-05-2023 ANNUAL PCP TEAM CHRONIC DISEASE VISIT ANNUAL PCP TEAM CHRONIC DISEASE VISIT [facility] Start: 12-05-2023 BP CONTROLLED (<130/80) BP CONTROLLED (<130/80) [facility] Start: 11-30-2023 Hemoglobin A1c/Hemoglobin.total in Blood HBA1C [facility] Start: 08-31-2023 HEMOGLOBIN/HEMATOCRIT HEMOGLOBIN/HEMATOCRIT [facility] Start: 08-31-2023 Hepatitis B surface antibody level LDL CHOLESTEROL [facility] Start: 08-31-2023 SERUM CREATININE SERUM CREATININE [facility] Start: 08-16-2023 Anaerobic Culture Anaerobic Culture [facility] Start: 07-20-2023 Covid-19 Vaccine () Covid-19 Vaccine () [facility] Start: 07-20-2023 Influenza vaccination [facility] Start: 06-13-2023 Hemoglobin A1c/Hemoglobin.total in Blood HBA1C [facility] Start: 06-05-2023 Mammography MAMMOGRAM [facility] Start: 06-04-2023 End: 08-04-2023 Bacteria identified in Urine by Culture [facility] Work Phone: Comment on above: Expected: 06/04/2023, Expires: 3 Start: 05-31-2023 ANNUAL PCP TEAM CHRONIC DISEASE VISIT ANNUAL PCP TEAM CHRONIC DISEASE VISIT [facility] Start: 05-31-2023 BP CONTROLLED (<130/80) BP CONTROLLED (<130/80) [facility] Start: 05-16-2023 3 comp foot exam completed DIABETIC FOOT EXAM [facility] Start: 05-08-2023 Hepatitis C antibody, confirmatory test DILATED RETINAL EXAM [facility] Start: 04-24-2023 Urine microalbumin profile [facility] Start: 03-07-2023 SERUM CREATININE SERUM CREATININE [facility] Start: 03-01-2023 Hemoglobin A1c/Hemoglobin.total in Blood HBA1C [facility] Start: 02-27-2023 End: 04-29-2023 ALBUMIN/CREAT RATIO RND UR ALBUMIN/CREAT RATIO RND UR Lab Routine 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) Expected: 02/27/2023, Expires: 04/29/2023 [facility] Work Phone: Comment on above: Expected: 02/27/2023, Expires: 3 Start: 02-23-2023 HEMOGLOBIN/HEMATOCRIT HEMOGLOBIN/HEMATOCRIT [facility] Start: 02-23-2023 Hepatitis B surface antibody level LDL CHOLESTEROL [facility] Start: 12-05-2022 End: 02-04-2023 CBC W Auto Differential panel - Blood CBC + DIFF Lab Routine Dizziness Biceps rupture, proximal, left, initial encounter Expected: 12/05/2022, Expires: 02/04/2023 [facility] Work Phone: Comment on above: Expected: 12/05/2022, Expires: 3 Start: 12-05-2022 End: 03-19-2023 Comprehensive metabolic 2000 panel - Serum or Plasma COMP METABOLIC PANEL Lab Routine Dizziness Biceps rupture, proximal, left, initial encounter Expected: 12/05/2022, Expires: 02/04/2023 [facility] Work Phone: Comment on above: Expected: 12/05/2022, Expires: 3 Start: 12-05-2022 End: 02-04-2023 Creatine kinase [Enzymatic activity/volume] in Serum or Plasma CK CREATINE KINASE Lab Routine Dizziness Biceps rupture, proximal, left, initial encounter Expected: 12/05/2022, Expires: 02/04/2023 [facility] Work Phone: Comment on above: Expected: 12/05/2022, Expires: 3 Start: 12-05-2022 End: 02-04-2023 Hemoglobin A1c in Blood HGB A1C Lab Routine 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) Expected: 12/05/2022, Expires: 02/04/2023 [facility] Work Phone: Comment on above: Expected: 12/05/2022, Expires: 3 Start: 12-05-2022 End: 02-04-2023 Magnesium [Mass/volume] in Serum or Plasma MAGNESIUM BLD Lab Routine Dizziness Biceps rupture, proximal, left, initial encounter Expected: 12/05/2022, Expires: 02/04/2023 [facility] Work Phone: Comment on above: Expected: 12/05/2022, Expires: 3 Start: 12-05-2022 End: 02-04-2023 Thyrotropin [Units/volume] in Serum or Plasma TSH BLD Lab Routine Dizziness Expected: 12/05/2022, Expires: 02/04/2023 [facility] Work Phone: Comment on above: Expected: 12/05/2022, Expires: 3 Start: 12-05-2022 End: 02-04-2023 Thyroxine (T4) free [Mass/volume] in Serum or Plasma T4 FREE/FREE THYROX Lab Routine Dizziness Expected: 12/05/2022, Expires: 02/04/2023 [facility] Work Phone: Comment on above: Expected: 12/05/2022, Expires: 3 Start: 12-02-2022 ANNUAL PCP TEAM CHRONIC DISEASE VISIT ANNUAL PCP TEAM CHRONIC DISEASE VISIT [facility] Start: 12-01-2022 Hemoglobin A1c/Hemoglobin.total in Blood HBA1C [facility] Start: 11-28-2022 Hepatitis B screening URINE ALBUMIN:CREATININE RATIO [facility] Start: 10-07-2022 End: 12-07-2022 Thyrotropin [Units/volume] in Serum or Plasma TSH BLD Lab Routine Low TSH level Abnormal thyroid blood test Borderline abnormal thyroid function test Expected: 10/07/2022, Expires: 12/07/2022 [facility] Work Phone: Comment on above: Expected: 10/07/2022, Expires: 3 Start: 10-07-2022 End: 12-07-2022 Thyroxine (T4) free [Mass/volume] in Serum or Plasma T4 FREE/FREE THYROX Lab Routine Low TSH level Abnormal thyroid blood test Borderline abnormal thyroid function test Expected: 10/07/2022, Expires: 12/07/2022 [facility] Work Phone: Comment on above: Expected: 10/07/2022, Expires: 3 Start: 10-07-2022 End: 12-07-2022 Triiodothyronine (T3) Free [Mass/volume] in Serum or Plasma T3 FREE BLD Lab Routine Low TSH level Abnormal thyroid blood test Borderline abnormal thyroid function test Expected: 10/07/2022, Expires: 12/07/2022 [facility] Work Phone: Comment on above: Expected: 10/07/2022, Expires: 3 Start: 08-31-2022 End: 10-31-2022 25-hydroxyvitamin D3 [Mass/volume] in Serum or Plasma VITAMIN D 25 HYDROXY Lab Routine Vitamin D deficiency Expected: 08/31/2022, Expires: 10/31/2022 [facility] Work Phone: Comment on above: Expected: 08/31/2022, Expires: 2 Start: 08-31-2022 End: 10-31-2022 CBC panel - Blood by Automated count CBC Lab Routine 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) Stage 3 chronic kidney disease, unspecified whether stage 3a or 3b CKD (HCC) Essential hypertension Dyslipidemia (high LDL; low HDL) Expected: 08/31/2022, Expires: 10/31/2022 [facility] Work Phone: Comment on above: Expected: 08/31/2022, Expires: 2 Start: 08-31-2022 End: 10-31-2022 Cobalamin (Vitamin B12) [Mass/volume] in Serum or Plasma VITAMIN B12 BLOOD Lab Routine 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) Expected: 08/31/2022, Expires: 10/31/2022 [facility] Work Phone: Comment on above: Expected: 08/31/2022, Expires: 2 Start: 08-31-2022 End: 10-31-2022 Comprehensive metabolic 2000 panel - Serum or Plasma COMP METABOLIC PANEL Lab Routine 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) Expected: 08/31/2022, Expires: 10/31/2022 [facility] Work Phone: Comment on above: Expected: 08/31/2022, Expires: 2 Start: 08-31-2022 End: 10-31-2022 Hemoglobin A1c in Blood HGB A1C Lab Routine 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) Expected: 08/31/2022, Expires: 10/31/2022 [facility] Work Phone: Comment on above: Expected: 08/31/2022, Expires: 2 Start: 08-31-2022 End: 10-31-2022 Lipid 1996 panel - Serum or Plasma LIPID PANEL BASIC Lab Routine Dyslipidemia (high LDL; low HDL) Expected: 08/31/2022, Expires: 10/31/2022 [facility] Work Phone: Comment on above: Expected: 08/31/2022, Expires: 2 Start: 08-31-2022 End: 10-31-2022 Thyrotropin [Units/volume] in Serum or Plasma TSH BLD Lab Routine 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) Stage 3 chronic kidney disease, unspecified whether stage 3a or 3b CKD (HCC) Fatigue, unspecified type Expected: 08/31/2022, Expires: 10/31/2022 [facility] Work Phone: Comment on above: Expected: 08/31/2022, Expires: 2 Start: 08-25-2022 Hemoglobin A1c/Hemoglobin.total in Blood HBA1C [facility] Start: 07-20-2022 Influenza vaccination INFLUENZA (#1) [facility] Start: 07-14-2022 BP CONTROLLED (<130/80) BP CONTROLLED (<130/80) [facility] Start: 06-10-2022 Mammography MAMMOGRAM [facility] Start: 05-30-2022 3 comp foot exam completed DIABETIC FOOT EXAM [facility] Start: 04-26-2022 COVID-19 VACCINE (3 - Booster for Kellee series) COVID-19 VACCINE (3 - Booster for Kellee series) [facility] Start: 03-30-2022 Hepatitis C antibody, confirmatory test DILATED RETINAL EXAM [facility] Start: 02-21-2022 COVID-19 VACCINE (3 - Booster for Kellee series) COVID-19 VACCINE (3 - Booster for Kellee series) [facility] Start: 01-20-2022 Colonoscopy flx dx w/collj spec when pfrmd DIAGNOSTIC COLONOSCOPY [facility] Work Phone: Start: 11-19-2021 ADVANCE DIRECTIVE DISCUSSION ADVANCE DIRECTIVE DISCUSSION [facility] Start: 12-17-2017 End: 12-17-2017 Appointment Appointment [facility] Work Phone: Start: 08-30-2017 End: 08-30-2017 Appointment Appointment [facility] Work Phone: Start: 06-11-2017 End: 06-11-2017 ISAC CHAU [facility] Work Phone: Start: 06-11-2017 End: 06-11-2017 Follow Up Appt 6 months Follow Up Appt 6 months [facility] Work Phone: Start: 06-11-2017 End: 06-11-2017 Appointment Appointment [facility] Work Phone: Start: 06-11-2017 End: 06-11-2017 TENZINN DJN [facility] Work Phone: Start: 06-11-2017 End: 06-11-2017 Follow Up Appt 6 months Follow Up Appt 6 months [facility] Work Phone: Start: 06-04-2017 End: 06-04-2017 Appointment Appointment [facility] Work Phone: Start: 05-04-2017 End: 05-04-2017 Thyroid stimulating hormone (TSH) *TSH [facility] Work Phone: Start: 05-04-2017 End: 05-04-2017 Thyroxine (T4) free *T4 free [facility] Work Phone: Start: 05-04-2017 End: 05-04-2017 Triiodothyronine (T3) free *T3-Free [facility] Work Phone: Start: 05-04-2017 End: 05-04-2017 Thyroid stimulating hormone (TSH) *TSH [facility] Work Phone: Start: 05-04-2017 End: 05-04-2017 Thyroxine (T4) free *T4 free [facility] Work Phone: Start: 05-04-2017 End: 05-04-2017 Triiodothyronine (T3) free *T3-Free [facility] Work Phone: Start: 05-02-2017 End: 05-02-2017 *BMP *BMP [facility] Work Phone: Start: 05-02-2017 End: 05-02-2017 *CBC with Differential *CBC with Differential [facility] Work Phone: Start: 05-02-2017 End: 05-02-2017 Appointment Appointment [facility] Work Phone: Start: 05-02-2017 End: 05-02-2017 *BMP *BMP [facility] Work Phone: Start: 05-02-2017 End: 05-02-2017 *CBC with Differential *CBC with Differential [facility] Work Phone: Start: 04-23-2017 End: 04-23-2017 C reactive protein (hsCRP) *CRP - C-Reative Protein [facility] Work Phone: Start: 04-23-2017 End: 04-23-2017 Erythrocyte sedimentation rate *Sedimentation Rate (ESR) [facility] Work Phone: Start: 04-23-2017 End: 04-23-2017 C reactive protein (hsCRP) *CRP - C-Reative Protein [facility] Work Phone: Start: 04-23-2017 End: 04-23-2017 Erythrocyte sedimentation rate *Sedimentation Rate (ESR) [facility] Work Phone: Start: 02-19-2017 End: 02-21-2017 C reactive protein (hsCRP) *CRP - C-Reative Protein [facility] [employer] Work Phone: Start: 02-19-2017 End: 02-21-2017 Erythrocyte sedimentation rate *Sedimentation Rate (ESR) [facility] [employer] Work Phone: Start: 02-19-2017 End: 02-21-2017 C reactive protein (hsCRP) *CRP - C-Reative Protein [facility] Work Phone: Start: 02-19-2017 End: 02-21-2017 Erythrocyte sedimentation rate *Sedimentation Rate (ESR) [facility] Work Phone: Start: 02-06-2017 End: 02-07-2017 Thyroid stimulating hormone (TSH) *TSH [facility] [employer] Work Phone: Start: 02-06-2017 End: 02-08-2017 Thyroperoxidase antibody *TPO Thyroid Peroxidase Antibodies [facility] [employer] Work Phone: Start: 02-06-2017 End: 02-07-2017 Thyroxine (T4) free *T4 free [facility] [employer] Work Phone: Start: 02-06-2017 End: 02-07-2017 Triiodothyronine (T3) free *T3-Free [facility] [employer] Work Phone: Start: 02-06-2017 End: 02-07-2017 Thyroid stimulating hormone (TSH) *TSH [facility] Work Phone: Start: 02-06-2017 End: 02-08-2017 Thyroperoxidase antibody *TPO Thyroid Peroxidase Antibodies [facility] Work Phone: Start: 02-06-2017 End: 02-07-2017 Thyroxine (T4) free *T4 free [facility] Work Phone: Start: 02-06-2017 End: 02-07-2017 Triiodothyronine (T3) free *T3-Free [facility] Work Phone: Start: 01-24-2017 End: 01-24-2017 Bacterica wound culture *Culture and Sensitivity, wound [facility] [employer] Work Phone: Start: 01-24-2017 End: 01-24-2017 Bacterica wound culture *Culture and Sensitivity, wound [facility] Work Phone: Start: 01-08-2017 End: 01-15-2017 *BMP *BMP [facility] [employer] Work Phone: Start: 01-08-2017 End: 01-15-2017 *CBC with Differential *CBC with Differential [facility] [employer] Work Phone: Start: 01-08-2017 End: 01-15-2017 C reactive protein (hsCRP) *CRP - C-Reative Protein [facility] [employer] Work Phone: Start: 01-08-2017 End: 01-15-2017 Erythrocyte sedimentation rate *Sedimentation Rate (ESR) [facility] [employer] Work Phone: Start: 01-08-2017 End: 01-15-2017 Mri lower extrem oth/thn jt w/o contr matrl MRI Non Joint Lower Extremity w/o [facility] [employer] Work Phone: Start: 01-08-2017 End: 01-15-2017 *BMP *BMP [facility] Work Phone: Start: 01-08-2017 End: 01-15-2017 *CBC with Differential *CBC with Differential [facility] Work Phone: Start: 01-08-2017 End: 01-15-2017 C reactive protein (hsCRP) *CRP - C-Reative Protein [facility] Work Phone: Start: 01-08-2017 End: 01-15-2017 Erythrocyte sedimentation rate *Sedimentation Rate (ESR) [facility] Work Phone: Start: 01-08-2017 End: 01-15-2017 Mri lower extremity w/o dye MRI Non Joint Lower Extremity w/o [facility] Work Phone: Start: 01-04-2017 End: 01-04-2017 *CBC with Differential *CBC with Differential [facility] [employer] Work Phone: Start: 01-04-2017 End: 01-04-2017 Bacterica wound culture *Culture and Sensitivity, wound [facility] [employer] Work Phone: Start: 01-04-2017 End: 01-04-2017 C reactive protein (hsCRP) *CRP - C-Reative Protein [facility] [employer] Work Phone: Start: 01-04-2017 End: 01-04-2017 Erythrocyte sedimentation rate *Sedimentation Rate (ESR) [facility] [employer] Work Phone: Start: 01-04-2017 End: 01-04-2017 MRSA presence *MRSAD - M R Staph Aureus DNA by PCR [facility] [employer] Work Phone: Start: 01-04-2017 End: 01-04-2017 Radex foot complete minimum 3 views X-Ray, Foot [facility] [employer] Work Phone: Start: 01-04-2017 End: 01-04-2017 *CBC with Differential *CBC with Differential [facility] Work Phone: Start: 01-04-2017 End: 01-04-2017 Bacterica wound culture *Culture and Sensitivity, wound [facility] Work Phone: Start: 01-04-2017 End: 01-04-2017 C reactive protein (hsCRP) *CRP - C-Reative Protein [facility] Work Phone: Start: 01-04-2017 End: 01-04-2017 Erythrocyte sedimentation rate *Sedimentation Rate (ESR) [facility] Work Phone: Start: 01-04-2017 End: 01-04-2017 MRSA presence *MRSAD - M R Staph Aureus DNA by PCR [facility] Work Phone: Start: 01-04-2017 End: 01-04-2017 X-ray exam of foot X-Ray, Foot [facility] Work Phone: Start: 01-01-2017 End: 01-02-2017 *CBC with Differential *CBC with Differential [facility] [employer] Work Phone: Start: 01-01-2017 End: 01-02-2017 C reactive protein (hsCRP) *CRP - C-Reative Protein [facility] [employer] Work Phone: Start: 01-01-2017 End: 01-02-2017 Erythrocyte sedimentation rate *Sedimentation Rate (ESR) [facility] [employer] Work Phone: Start: 01-01-2017 End: 01-02-2017 *CBC with Differential *CBC with Differential [facility] Work Phone: Start: 01-01-2017 End: 01-02-2017 C reactive protein (hsCRP) *CRP - C-Reative Protein [facility] Work Phone: Start: 01-01-2017 End: 01-02-2017 Erythrocyte sedimentation rate *Sedimentation Rate (ESR) [facility] Work Phone: Start: 12-20-2016 End: 12-20-2016 Radex foot complete minimum 3 views X-Ray, Foot [facility] Work Phone: Start: 12-20-2016 End: 12-20-2016 X-ray exam of foot X-Ray, Foot [facility] Work Phone: Start: 12-18-2016 End: 12-20-2016 *CDIF - Clostridium Diff. Toxin Stool *CDIF - Clostridium Diff. Toxin Stool [facility] [employer] Work Phone: Start: 12-18-2016 End: 12-20-2016 *CDIF - Clostridium Diff. Toxin Stool *CDIF - Clostridium Diff. Toxin Stool [facility] Work Phone: Start: 12-13-2016 End: 12-15-2016 Radex foot complete minimum 3 views X-Ray, Foot [facility] [employer] Work Phone: Start: 12-13-2016 End: 12-15-2016 X-ray exam of foot X-Ray, Foot [facility] Work Phone: Start: 12-05-2016 End: 12-05-2016 TENZINN DJN [facility] [employer] Work Phone: Start: 12-05-2016 End: 12-05-2016 Follow Up Appt 6 months Follow Up Appt 6 months [facility] [employer] Work Phone: Start: 12-05-2016 End: 12-05-2016 ISAC CHAU [facility] Work Phone: Start: 12-05-2016 End: 12-05-2016 Follow Up Appt 6 months Follow Up Appt 6 months [facility] Work Phone: Start: 11-22-2016 End: 11-23-2016 *IGSUB IMMUN Subclas-IGG1,2,3 &4 *IGSUB IMMUN Subclas-IGG1,2,3 &4 [facility] [employer] Work Phone: Start: 11-22-2016 End: 11-29-2016 Debridement subcutaneous tissue 20 sq cm/< Debridement, subcutaneous tissue first 20 sq cm or less [facility] [employer] Work Phone: Start: 11-22-2016 End: 11-23-2016 *IGSUB IMMUN Subclas-IGG1,2,3 &4 *IGSUB IMMUN Subclas-IGG1,2,3 &4 [facility] Work Phone: Start: 11-22-2016 End: 11-29-2016 Dalila subq tissue 20 sq cm/< Debridement, subcutaneous tissue first 20 sq cm or less [facility] Work Phone: Start: 09-22-2016 End: 09-29-2016 Debridement subcutaneous tissue 20 sq cm/< Debridement, subcutaneous tissue first 20 sq cm or less [facility] [employer] Work Phone: Start: 09-22-2016 End: 09-29-2016 Dalila subq tissue 20 sq cm/< Debridement, subcutaneous tissue first 20 sq cm or less [facility] Work Phone: Start: 11-30-2015 End: 11-30-2015 ISAC CHAU [facility] [employer] Work Phone: Start: 11-30-2015 End: 11-30-2015 Follow Up Appt 1 year Follow Up Appt 1 year [facility] [employer] Work Phone: Start: 11-30-2015 End: 11-30-2015 ISAC CHAU [facility] Work Phone: Start: 11-30-2015 End: 11-30-2015 Follow Up Appt 1 year Follow Up Appt 1 year [facility] Work Phone: Start: 05-25-2015 End: 05-25-2015 ISAC CHAU [facility] [employer] Work Phone: Start: 05-25-2015 End: 05-25-2015 Ecg routine ecg w/least 12 lds w/i&r EKG (In office) [facility] [employer] Work Phone: Start: 05-25-2015 End: 05-25-2015 Follow Up Appt 6 months Follow Up Appt 6 months [facility] [employer] Work Phone: Start: 05-25-2015 End: 05-25-2015 ISAC CHAU [facility] Work Phone: Start: 05-25-2015 End: 05-25-2015 Electrocardiogram, complete EKG (In office) [facility] Work Phone: Start: 05-25-2015 End: 05-25-2015 Follow Up Appt 6 months Follow Up Appt 6 months [facility] Work Phone: Start: 01-04-2015 End: 01-04-2015 Vascular Surgery Vascular Surgery Kwaku Moscoso, [address], [address], [place], [address] [facility] [employer] Work Phone: Start: 01-04-2015 End: 01-04-2015 Vascular Surgery Vascular Surgery Kwaku Moscoso, [facility], [address] [place], [address] [facility] Work Phone: Start: 12-29-2014 End: 05-19-2015 *BMP *BMP [facility] [employer] Work Phone: Start: 12-29-2014 End: 12-29-2014 Ct angiography neck w/contrast/noncontrast CTA Neck [facility] [employer] Work Phone: Start: 12-29-2014 End: 12-29-2014 DJN DJN [facility] [employer] Work Phone: Start: 12-29-2014 End: 12-29-2014 Follow Up Appt 6 months Follow Up Appt 6 months [facility] [employer] Work Phone: Start: 12-29-2014 End: 05-19-2015 *BMP *BMP [facility] Work Phone: Start: 12-29-2014 End: 12-29-2014 Ct angiography, neck CTA Neck [facility] Work Phone: Start: 12-29-2014 End: 12-29-2014 DJN DJN [facility] Work Phone: Start: 12-29-2014 End: 12-29-2014 Follow Up Appt 6 months Follow Up Appt 6 months [facility] Work Phone: Start: 06-12-2014 End: 06-12-2014 24 hour holter monitor 24 hour holter monitor [facility] [employer] Work Phone: Start: 06-12-2014 End: 06-15-2014 Carotid duplex Carotid duplex [facility] [employer] Work Phone: Start: 06-12-2014 End: 06-12-2014 Follow Up Appt Other Follow Up Appt Other [facility] [employer] Work Phone: Start: 06-12-2014 End: 06-12-2014 24 hour holter monitor 24 hour holter monitor [facility] Work Phone: Start: 06-12-2014 End: 06-15-2014 Carotid duplex Carotid duplex [facility] Work Phone: Start: 06-12-2014 End: 06-12-2014 Follow Up Appt Other Follow Up Appt Other [facility] Work Phone: Start: 02-02-2014 End: 02-02-2014 Cardiac Rehab Cardiac Rehab [facility] [employer] Work Phone: Start: 02-02-2014 End: 02-02-2014 DJN TENZINN [facility] [employer] Work Phone: Start: 02-02-2014 End: 02-02-2014 Follow Up Appt 1 year Follow Up Appt 1 year [facility] [employer] Work Phone: Start: 02-02-2014 End: 02-02-2014 Cardiac Rehab Cardiac Rehab [facility] Work Phone: Start: 02-02-2014 End: 02-02-2014 DJN DJN [facility] Work Phone: Start: 02-02-2014 End: 02-02-2014 Follow Up Appt 1 year Follow Up Appt 1 year [facility] Work Phone: Start: 01-12-2014 End: 01-12-2014 *BMP *BMP [facility] [employer] Work Phone: Start: 01-12-2014 End: 01-12-2014 CBC W Auto Differential panel - Blood *CBC without Diff [facility] [employer] Work Phone: Start: 01-12-2014 End: 01-23-2014 Chest x-ray X-Ray, Chest, PA & Lateral [facility] [employer] Work Phone: Start: 01-12-2014 End: 01-12-2014 ISAC CHAU [facility] [employer] Work Phone: Start: 01-12-2014 End: 01-12-2014 Follow Up Appt 1 year Follow Up Appt 1 year [facility] [employer] Work Phone: Start: 01-12-2014 End: 01-12-2014 INR Coag RelTime (PPP) *PT/INR [facility] [employer] Work Phone: Start: 01-12-2014 End: 01-12-2014 Left Heart Cath Left Heart Cath [facility] [employer] Work Phone: Start: 01-12-2014 End: 01-12-2014 *BMP *BMP [facility] Work Phone: Start: 01-12-2014 End: 01-12-2014 CBC W Auto Differential panel - Blood *CBC without Diff [facility] Work Phone: Start: 01-12-2014 End: [...] (1 of 3 - Risk 3-dose series) [facility] Start: 2012 RSV Vaccine (1 - 1-dose 60+ series) RSV Vaccine (1 - 1-dose 60+ series) [facility] Start: 2002 Influenza vaccination LUNG CANCER SCREENING [facility] Start: 2002 Screening for malignant neoplasm of lung Lung Cancer Screening [facility] Start: 2002 SHINGRIX VACCINE (1 of 2) SHINGRIX VACCINE (1 of 2) [facility] Start: 1997 COLOGUARD (FIT-DNA) COLOGUARD (FIT-DNA) [facility] Start: [address] COLONOGRAPHY [facility] Start: 1997 FECAL OCCULT BLOOD FECAL OCCULT BLOOD [facility] Start: 1997 Screening for malignant neoplasm of colon [facility] Start: 1997 SIGMOIDOSCOPY SIGMOIDOSCOPY [facility] Start: 1970 Anxiety Screening Anxiety Screening [facility] Alanine aminotransfe rase [Enzymatic activity/volume] in Serum or Plasma [facility] Albumin [Mass/volume ] in Serum or Plasma [facility] Alkaline phosphatase [Enzymatic activity/volume] in Serum or Plasma [facility] Anion gap in Serum o r Plasma [facility] Anion gap in Serum o r Plasma [facility] Anion gap in Serum o r Plasma [facility] Anion gap in Serum o r Plasma [facility] Anion gap in Serum o r Plasma [facility] Anion gap in Serum o r Plasma [facility] Anion gap in Serum o r Plasma [facility] Anion gap in Serum o r Plasma [facility] Ankle brachial press ure index [facility] Bacteria identified in Unspecified specimen by Anaerobe culture [facility] Bacteria identified in Unspecified specimen by Anaerobe culture [facility] Bacteria identified in Unspecified specimen by Anaerobe culture [facility] Bacteria identified in Urine by Culture URINE CULTURE Microbiology Routine Acute cystitis with hematuria Ordered: 09/23/2022 [facility] Work Phone: Comment on above: Ordered: 09/23/2022 Bilirubin measuremen t, urine [facility] Bilirubin, total measurement [facility] BUN/Creatinine ratio [facility] BUN/Creatinine ratio [facility] BUN/Creatinine ratio [facility] BUN/Creatinine ratio [facility] BUN/Creatinine ratio [facility] BUN/Creatinine ratio [facility] BUN/Creatinine ratio [facility] BUN/Creatinine ratio [facility] Calcium [Mass/volume ] in Serum or Plasma [facility] Calcium [Mass/volume ] in Serum or Plasma [facility] Calcium [Mass/volume ] in Serum or Plasma [facility] Calcium [Mass/volume ] in Serum or Plasma [facility] Calcium [Mass/volume ] in Serum or Plasma [facility] Calcium [Mass/volume ] in Serum or Plasma [facility] Calcium [Mass/volume ] in Serum or Plasma [facility] Calcium [Mass/volume ] in Serum or Plasma [facility] Carbon dioxide, tota l [Moles/volume] in Central venous blood [facility] Carbon dioxide, tota l [Moles/volume] in Central venous blood [facility] Carbon dioxide, tota l [Moles/volume] in Central venous blood [facility] Carbon dioxide, tota l [Moles/volume] in Central venous blood [facility] Carbon dioxide, tota l [Moles/volume] in Central venous blood [facility] Carbon dioxide, tota l [Moles/volume] in Central venous blood [facility] Carbon dioxide, tota l [Moles/volume] in Central venous blood [facility] Carbon dioxide, tota l [Moles/volume] in Central venous blood [facility] Creatinine [Mass/vol ume] in Serum or Plasma [facility] Creatinine [Mass/vol ume] in Serum or Plasma [facility] Creatinine [Mass/vol ume] in Serum or Plasma [facility] Creatinine [Mass/vol ume] in Serum or Plasma [facility] Creatinine [Mass/vol ume] in Serum or Plasma [facility] Creatinine [Mass/vol ume] in Serum or Plasma [facility] Creatinine [Mass/vol ume] in Serum or Plasma [facility] Creatinine [Mass/vol ume] in Serum or Plasma [facility] DBT Breast - bilater al screening ALEJANDRO SCREENING W BEN Radiology Routine Encounter for screening mammogram for malignant neoplasm of breast 06/03/2024 9:42 AM EDT [facility] Work Phone: End: 01-04-2026 DBT Breast - bilateral screening ALEJANDRO SCREENING W BEN Radiology Routine Encounter for screening mammogram for malignant neoplasm of breast 1 Occurrences starting 12/05/2024 until 01/04/2026 [facility] Work Phone: Comment on above: 1 Occurrences starting 12/05/2024 until 01/04/2026 End: 07-05-2023 Diagnostic mammography computer-aided detcj [facility] DIAGNOSTIC RT Radiology Routine Abnormal mammogram 1 Occurrences starting 06/05/2022 until 07/05/2023 [facility] Work Phone: Comment on above: 1 Occurrences starting 06/05/2022 until 07/05/2023 Erythrocyte mean corpuscular volume determination [facility] Erythrocyte mean corpuscular volume determination [facility] Erythrocyte mean corpuscular volume determination [facility] Erythrocyte mean corpuscular volume determination [facility] Erythrocyte mean corpuscular volume determination [facility] Erythrocyte mean corpuscular volume determination [facility] Erythrocyte mean corpuscular volume determination [facility] Erythrocyte mean corpuscular volume determination [facility] Fungus identified in Unspecified specimen by Culture [facility] Fungus identified in Unspecified specimen by Fungus stain [facility] Glucose [Mass/volume ] in Serum or Plasma [facility] Glucose [Mass/volume ] in Serum or Plasma [facility] Glucose [Mass/volume ] in Serum or Plasma [facility] Glucose [Mass/volume ] in Serum or Plasma [facility] Glucose [Mass/volume ] in Serum or Plasma [facility] Glucose [Mass/volume ] in Serum or Plasma [facility] Glucose [Mass/volume ] in Serum or Plasma [facility] Glucose [Mass/volume ] in Serum or Plasma [facility] Hematocrit [Volume Fraction] of Blood [facility] Hematocrit [Volume Fraction] of Blood [facility] Hematocrit [Volume Fraction] of Blood [facility] Hematocrit [Volume Fraction] of Blood [facility] Hematocrit [Volume Fraction] of Blood [facility] Hematocrit [Volume Fraction] of Blood [facility] Hematocrit [Volume Fraction] of Blood [facility] Hematocrit [Volume Fraction] of Blood [facility] Hematocrit [Volume Fraction] of Blood [facility] Hemoglobin [Mass/vol ume] in Blood [facility] Hemoglobin [Mass/vol ume] in Blood [facility] Hemoglobin [Mass/vol ume] in Blood [facility] Hemoglobin [Mass/vol ume] in Blood [facility] Hemoglobin [Mass/vol ume] in Blood [facility] Hemoglobin [Mass/vol ume] in Blood [facility] Hemoglobin [Mass/vol ume] in Blood [facility] Hemoglobin [Mass/vol ume] in Blood [facility] Hemoglobin [Mass/vol ume] in Blood [facility] Hemoglobin [Presence ] in Urine [facility] INR in Blood by Coagulation assay [facility] Leukocytes [#/volume ] in Blood [facility] Leukocytes [#/volume ] in Blood [facility] Leukocytes [#/volume ] in Blood [facility] Leukocytes [#/volume ] in Blood [facility] Leukocytes [#/volume ] in Blood [facility] Leukocytes [#/volume ] in Blood [facility] Leukocytes [#/volume ] in Blood [facility] Leukocytes [#/volume ] in Blood [facility] Magnesium measurement [facility] Magnesium measurement [facility] End: 06-27-2024 ALEJANDRO DIAGNOSTIC RIGHT ALEJANDRO DIAGNOSTIC RIGHT Radiology Routine Abnormal mammogram 1 Occurrences starting 05/29/2023 until 06/27/2024 [facility] Work Phone: Comment on above: 1 Occurrences starting 05/29/2023 until 06/27/2024 End: 03-06-2024 ALEJANDRO SCREENING ALEJANDRO SCREENING Radiology Routine Encounter for screening mammogram for malignant neoplasm of breast 1 Occurrences starting 02/07/2023 until 03/06/2024 [facility] [employer] Work Phone: Comment on above: 1 Occurrences starting 02/07/2023 until 03/06/2024 Mean corpuscular hemoglobin concentration determination [facility] Mean corpuscular hemoglobin concentration determination [facility] Mean corpuscular hemoglobin concentration determination [facility] Mean corpuscular hemoglobin concentration determination [facility] Mean corpuscular hemoglobin concentration determination [facility] Mean corpuscular hemoglobin concentration determination [facility] Mean corpuscular hemoglobin concentration determination [facility] Mean corpuscular hemoglobin concentration determination [facility] Mean corpuscular hemoglobin determination [facility] Mean corpuscular hemoglobin determination [facility] Mean corpuscular hemoglobin determination [facility] Mean corpuscular hemoglobin determination [facility] Mean corpuscular hemoglobin determination [facility] Mean corpuscular hemoglobin determination [facility] Mean corpuscular hemoglobin determination [facility] Mean corpuscular hemoglobin determination [facility] Measurement of k[place] es in urine using dipstick [facility] Measurement of renal function [facility] Measurement of renal function [facility] Measurement of renal function [facility] Measurement of renal function [facility] Measurement of renal function [facility] Measurement of renal function [facility] Measurement of renal function [facility] Measurement of renal function [facility] Microscopic observat ion [Identifier] in Unspecified specimen by Gram stain [facility] Microscopic urinalysis [facility] Neutrophil count [facility] Neutrophil count [facility] Neutrophil count [facility] Neutrophil count [facility] Neutrophil count [facility] Neutrophil count [facility] Neutrophil count [facility] Neutrophil count [facility] Neutrophil percent differential count [facility] Neutrophil percent differential count [facility] Neutrophil percent differential count [facility] Neutrophil percent differential count [facility] Neutrophil percent differential count [facility] Neutrophil percent differential count [facility] Neutrophil percent differential count [facility] Neutrophil percent differential count [facility] NM Heart Views W str ess and W radionuclide IV [facility] Patient Education [facility] Work Phone: Patient referral [facility] Work Phone: pH of Urine [facility] Platelets [#/volume] in Blood [facility] Platelets [#/volume] in Blood [facility] Platelets [#/volume] in Blood [facility] Platelets [#/volume] in Blood [facility] Platelets [#/volume] in Blood [facility] Platelets [#/volume] in Blood [facility] Platelets [#/volume] in Blood [facility] Platelets [#/volume] in Blood [facility] Potassium measurement [facility] Potassium measurement [facility] Potassium measurement [facility] Potassium measurement [facility] Potassium measurement [facility] Potassium measurement [facility] Potassium measurement [facility] Potassium measurement [facility] [facility] cell count [facility] Red blood cell count [facility] Red blood cell count [facility] Red blood cell count [facility] Red blood cell count [facility] Red blood cell count [facility] Red blood cell count [facility] Red blood cell count [facility] Red cell distributio n width determination [facility] Red cell distributio n width determination [facility] Red cell distributio n width determination [facility] Red cell distributio n width determination [facility] Red cell distributio n width determination [facility] Red cell distributio n width determination [facility] Red cell distributio n width determination [facility] Red cell distributio n width determination [facility] Serum chloride measurement [facility] Serum chloride measurement [facility] Serum chloride measurement [facility] Serum chloride measurement [facility] Serum chloride measurement [facility] Serum chloride measurement [facility] Serum chloride measurement [facility] Serum chloride measurement [facility] Sodium measurement [facility] Sodium measurement [facility] Sodium measurement [facility] Sodium measurement [facility] Sodium measurement [facility] Sodium measurement [facility] Sodium measurement [facility] Sodium measurement [facility] Specific gravity of Urine [facility] Total protein measurement [facility] Urea nitrogen [Mass/volume] in Serum or Plasma [facility] Urea nitrogen [Mass/volume] in Serum or Plasma [facility] Urea nitrogen [Mass/volume] in Serum or Plasma [facility] Urea nitrogen [Mass/volume] in Serum or Plasma [facility] Urea nitrogen [Mass/volume] in Serum or Plasma [facility] Urea nitrogen [Mass/volume] in Serum or Plasma [facility] Urea nitrogen [Mass/volume] in Serum or Plasma [facility] Urea nitrogen [Mass/volume] in Serum or Plasma [facility] Urine blood test [facility] Urine culture [facility] Urine culture [facility] Urine dipstick for glucose [facility] Urine dipstick for leukocyte esterase [facility] Urine dipstick for nitrite [facility] Urine dipstick for protein [facility] Urine examination [facility] Urine microscopy: epithelial cells [facility] Urine Microscopy: wh ite cells [facility] Urobilinogen [Presen ce] in Urine [facility] End: 06-27-2024 US BREAST LTD RIGHT US BREAST LTD RIGHT Radiology Routine Abnormal mammogram 1 Occurrences starting 05/29/2023 until 06/27/2024 [facility] Work Phone: Comment on above: 1 Occurrences starting 05/29/2023 until 06/27/2024 End: 07-05-2023 Us breast uni real time with image limited US BREAST LTD RT Radiology Routine Abnormal mammogram 1 Occurrences starting 06/05/2022 until 07/05/2023 [facility] Work Phone: Comment on above: 1 Occurrences starting 06/05/2022 until 07/05/2023 US Carotid arteries [facility] Work Phone: US Carotid arteries [facility] US Carotid arteries [facility] US Carotid arteries [facility] End: 12-05-2023 US CAROTID ARTERIES [facility] US CAROTID ARTERIES [facility] Vascular Lab Routine Carotid atherosclerosis, bilateral 1 Occurrences starting 12/05/2022 until 12/05/2023 [facility] Work Phone: Comment on above: 1 Occurrences starting 12/05/2022 until 12/05/2023 US Heart [facility] US Lower extremity artery [facility] Us soft tissue head & neck real time imge docm US THYROID/PARATHYROID Radiology Routine Multiple thyroid nodules 12/20/2023 9:38 AM EST [facility] Work Phone: Vancomycin [Mass/vol ume] in Serum or Plasma --trough [facility] Vancomycin [Mass/vol ume] in Serum or Plasma --trough [facility] Vancomycin [Mass/vol ume] in Serum or Plasma --trough [facility] Vancomycin [Mass/vol ume] in Serum or Plasma --trough [facility] Wound microscopy, cu lture and sensitivities [facility] Wound microscopy, cu lture and sensitivities [facility] Immunizations Immunization Date Immunization Notes Care Provider Lisa caballeromain 09-05-2024 influenza, high dose seasonal, preservative-free Immunization [place] Work Phone: [facility] 09-05-2024 influenza virus vaccine, unspecified formulation Rishi Vasquez DO Work Phone: [facility] 08-31-2023 influenza (HD-IIV4) vaccine, age 65+ yr, high dose, quadrivalent, PF (FLUZONE HIGH-DOSE) Immunization [facility] Work Phone: [facility] Work Phone: 08-31-2023 influenza virus vaccine, unspecified formulation Rishi Vasquez DO Work Phone: [facility] 06-04-2023 pneumococcal (PCV20) vaccine, 20 valent (PREVNAR 20) Rishi Vasquez DO Work Phone: [facility] Work Phone: 06-04-2023 pneumococcal Conjuga te, unspecified formulation Rishi Vasquez DO Work Phone: [facility] Work Phone: 09-09-2022 influenza, high-dose , quadrivalent vaccine (FLUZONE HIGH DOSE QUADRIVALENT) Immunization [facility] Work Phone: [facility] 09-09-2022 influenza virus vaccine, unspecified formulation Rishi Vasquez DO Work Phone: [facility] 09-10-2021 influenza, high-dose , quadrivalent vaccine (FLUZONE HIGH DOSE QUADRIVALENT) Yani Watts APRN.[employer] Work Phone: [facility] Work Phone: 09-10-2020 influenza, high-dose , quadrivalent vaccine (FLUZONE HIGH DOSE QUADRIVALENT) Yani Watts APRN.[employer] Work Phone: [facility] Work Phone: 09-02-2019 influenza, high dose seasonal, preservative-free Yani Violeta SUPERVISOR AGRICULTURAL EDUCATION.[employer] Work Phone: [facility] Work Phone: 08-28-2018 influenza, high dose seasonal, preservative-free Yani Violeta SUPERVISOR AGRICULTURAL EDUCATION.[employer] Work Phone: [facility] Work Phone: 08-28-2018 pneumococcal polysaccharide vaccine, 23 valent Yani Violeta SUPERVISOR AGRICULTURAL EDUCATION.[facility] Work Phone: [facility] Work Phone: 09-07-2017 influenza, high dose seasonal, preservative-free Yani Violeta SUPERVISOR AGRICULTURAL EDUCATION.[facility] Work Phone: [facility] Work Phone: 09-01-2016 influenza, injectabl e, quadrivalent, preservative free Dr. Rishi Vasquez Work Phone: [facility] 09-01-2016 influenza, seasonal, injectable Dr. Rishi Vasquez Work Phone: [facility] 09-11-2014 influenza, seasonal, injectable Yani Violeta SUPERVISOR AGRICULTURAL EDUCATION.[facility] Work Phone: [facility] Work Phone: 04-24-2013 tetanus toxoid, redu woody diphtheria toxoid, and acellular pertussis vaccine, adsorbed Yani Violeta SUPERVISOR AGRICULTURAL EDUCATION.[employer] Work Phone: [facility] Work Phone: 01-03-2013 pneumococcal conjuga te vaccine, 13 valent Yani Violeta SUPERVISOR AGRICULTURAL EDUCATION.[employer] Work Phone: [facility] Work Phone: 12-20-2012 pneumococcal polysaccharide vaccine, 23 valent Yani Violeta SUPERVISOR AGRICULTURAL EDUCATION.[employer] Work Phone: [facility] Work Phone: Payers Date Payer Category Payer Self-pay [id number] 2022 [place] [id number] 2022 Medicare [id number] 2020 Unknown MMO MMO MEDICARE SUPPLEMENT [id number] 2020-Present [phone] [address] [place] [address] Indemnity [id number] 2020 Unknown [id number]. [id number] 2017 Medicare MEDICARE MEDICAR E A AND B [id number] 2017-Present [phone] [place] [address] Medicare [id number] 2017 Medicare [id number] 2017 Private Health Insurance [facility] [id number] Medicare [id number] Unknown [id number] Unknown [id number] 2.16.840.1.535722.3.579.2. 462 Unknown [id number] 2.16.840.1.983527.3.579.2. 462 Unknown [id number] 2.16.840.1.765027.3.579.2. 462 Unknown [id number] 2.16.840.1.001126.3.579.2. 462 Unknown [id number] 2..840.1.187373.3.579.2. 462 Unknown [id number] 2..840.1.632952.3.579.2. 462 Unknown [id number] 2..840.1.137243.3.579.2. 462 Unknown [id number] 2..840.1.834645.3.579.2. 462 Unknown [id number] 2.16.840.1.628154.3.579.2. 462 Unknown [id number] 2..840.1.743548.3.579.2. 462 Unknown [id number] 2..840.1.489426.3.579.2. 462 Unknown [id number] 2..840.1.395661.3.579.2. 462 Unknown [id number] 2.16.840.1.904893.3.579.2. 462 Unknown [id number] 2.16.840.1.528630.3.579.2. 462 Unknown [id number] 2.16.840.1.787498.3.579.2. 462 Unknown [id number] 2.16.840.1.351190.3.579.2. 462 Unknown [id number] 2.16.840.1.427275.3.579.2. 462 Unknown [id number] 2.16.840.1.008834.3.579.2. 462 Unknown [id number] 2.16.840.1.746876.3.579.2. 462 Unknown [id number] 2.16.840.1.852802.3.579.2. 462 Unknown [id number] 2.16.840.1.359655.3.579.2. 462 Unknown [id number] 2.16.840.1.447349.3.579.2. 462 Unknown [id number] 2.16.840.1.413505.3.579.2. 462 Unknown [id number] 2.16.840.1.721312.3.579.2. 462 Unknown [id number] 2.16.840.1.206352.3.579.2. 462 Unknown [id number] 2.16840.1.268408.3.579.2. 462 Unknown [id number] 2.16.840.1.883707.3.579.2. 462 Unknown [id number] 2.16.840.1.235095.3.579.2. 462 Unknown [id number] 2.16.840.1.625827.3.579.2. 462 Unknown [id number] 2.16.840.1.293805.3.579.2. 462 Unknown [id number] 2.16840.1.997401.3.579.2. 462 Unknown [id number] 2.16.840.1.696066.3.579.2. 462 Unknown [id number] 2.16.840.1.639348.3.579.2. 462 Unknown [id number] 2.16.840.1.201826.3.579.2. 462 Unknown [id number] 2.16.840.1.767958.3.579.2. 462 Unknown [id number] 2.16.840.1.778672.3.579.2. 462 Unknown [id number] 2.16.840.1.102690.3.579.2. 462 Unknown [id number] 2.16.840.1.644249.3.579.2. 462 Unknown [id number] 2.16.840.1.778928.3.579.2. 462 Unknown [id number] 2.16840.1.101950.3.579.2. 462 Unknown [id number] 2.16.840.1.242746.3.579.2. 462 Unknown [id number] 2.16840.1.815892.3.579.2. 462 Unknown [id number] 2.840.1.345671.3.579.2. 462 Unknown [id number] 2.840.1.352305.3.579.2. 462 Unknown [id number] 2.840.1.735741.3.579.2. 462 Unknown [id number] 2.840.1.803379.3.579.2. 462 Unknown [id number] 2.840.1.284942.3.579.2. 462 Unknown [id number] 2.840.1.639784.3.579.2. 462 Unknown [id number] 2.840.1.826470.3.579.2. 462 Unknown [id number] 2.840.1.271273.3.579.2. 462 Unknown [id number] 2.16840.1.485585.3.579.2. 462 Unknown [id number] 2.16840.1.893802.3.579.2. 462 Unknown [id number] 2.16840.1.231691.3.579.2. 462 Unknown [id number] 2.16840.1.906790.3.579.2. 462 Unknown [id number] 2.16.840.1.046768.3.579.2. 462 Unknown [id number] 2.16.840.1.337904.3.579.2. 462 Unknown [id number] 2.16.840.1.157216.3.579.2. 462 Unknown [id number] 2.16.840.1.531781.3.579.2. 462 Unknown [id number] 2.16.840.1.345427.3.579.2. 462 Unknown [id number] 2.16.840.1.608642.3.579.2. 462 Unknown [id number] 2.16.840.1.042859.3.579.2. 462 Unknown [id number] 2.16840.1.899626.3.579.2. 462 Unknown [id number] 2.840.1.152742.3.579.2. 462 Unknown [id number] 2.16840.1.888280.3.579.2. 462 Unknown [id number] 2.16.840.1.747805.3.579.2. 462 Unknown [id number] 2.16.840.1.063007.3.579.2. 462 Unknown [id number] 2.16.840.1.634052.3.579.2. 462 Unknown [id number] 2.16840.1.688711.3.579.2. 462 Unknown [id number] 2.16.840.1.219416.3.579.2. 462 Unknown [id number] 2.16.840.1.376675.3.579.2. 462 Unknown [id number] 2.16.840.1.065296.3.579.2. 462 Unknown [id number] 2.16.840.1.856717.3.579.2. 462 Unknown [id number] 2.16840.1.070590.3.579.2. 462 Unknown [id number] 2.16.840.1.430851.3.579.2. 462 Unknown [id number] 2.16.840.1.087498.3.579.2. 462 Unknown [id number] 2.16.840.1.341572.3.579.2. 462 Unknown [id number] 2.16.840.1.579505.3.579.2. 462 Unknown [id number] 2.16.840.1.865705.3.579.2. 462 Unknown [id number] 2.16.840.1.299055.3.579.2. 462 Unknown [id number] 2.16.840.1.246403.3.579.2. 462 Unknown [id number] 2.16.840.1.480164.3.579.2. 462 Unknown [id number] 2.16.840.1.534201.3.579.2. 462 Unknown [id number] 2.16.840.1.800720.3.579.2. 462 Unknown [id number] 2.16.840.1.456300.3.579.2. 462 Unknown [id number] 2.16.840.1.085976.3.579.2. 462 Unknown [id number] 2.16.840.1.410851.3.579.2. 462 Social History Date Type Detail Facility [facility] Work Phone: Start: 02-07-2022 End: 02-12-2024 Tobacco smoking status NYIS Unknown if ever smoked [facility] Start: 03-19-2021 None [facility] Start: 03-19-2021 Alone [facility] Start: 03-19-2021 Cigarettes [facility] Start: 1950 Sex Assigned At Female [facility] Start: 01-13-2013 End: 06-12-2025 Tobacco smoking status NHIS Ex-smoker [facility] Start: 12-20-1967 End: 12-20-2012 History of tobacco use Current smoker [facility] Start: 12-20-1967 End: 12-20-2012 History of tobacco use Cigarette Smoker [facility] Start: 01-13-2013 End: 09-05-2024 Cigarettes smoked current (pack per day) - Reported 0.5 [facility] Start: 01-13-2013 End: 03-27-2025 Tobacco use and exposure Smokeless tobacco non-user [facility] Start: 12-02-2021 End: 03-27-2025 Alcohol intake Current non-drinker of alcohol (finding) [facility] Start: 12-01-2021 End: 12-02-2022 History SDOH Alcohol Frequency 1 [facility] Start: 12-01-2021 History SDOH Alcohol Std Drinks 98 [facility] Start: 12-01-2021 End: 12-02-2022 History SDOH Social Connections Phone 5 [facility] Start: 12-01-2021 End: 12-02-2022 History SDOH Social Connections Druze 2 [facility] Start: 12-01-2021 End: 12-02-2022 History SDOH Social Connections Living 4 [facility] Start: 12-01-2021 End: 12-02-2022 History SDOH Physical Activity MPS 6 [facility] Start: 11-26-2019 Education 12 [facility] Start: 02-25-2022 End: 08-15-2022 Exposure to SARS-CoV-2 (event) Not sure [facility] Work Phone: Start: 12-02-2022 History SDOH Alcohol Std Drinks 0 [facility] Start: 12-01-2022 End: 09-05-2024 Social connection and isolation panel [facility] Do you belong to any clubs or organizations such as baptism groups, unions, fraternal or athletic groups, or school groups? No [facility] Are you now , , , , never or living with a partner? [facility] How often to you hav e a drink containing alcohol? Never [facility] Start: 10-20-2012 How many standard drinks containing alcohol do you have on a typical day? Patient does not drink [facility] Do you feel stress - tense, restless, nervous, or anxious, or unable to sleep at night because your mind is troubled all the time - these days [OSQ] Only a little [facility] (I/We) worried wheth er (my/our) food would run out before (I/we) got money to buy more. Never true [facility] Start: 08-26-2019 Gender identity Identifies as female gender (finding) [facility] Start: 08-16-2024 Sexual orientation Heterosexual (fin rufino) [facility] Do you feel stress - tense, restless, nervous, or anxious, or unable to sleep at night because your mind is troubled all the time - these days [OSQ] Not at all [facility] Start: 02-17-2025 End: 03-07-2025 Sex Female (finding) [facility] NEGATED: Highlighted row [facility] Medical Equipment Procedure Code Equipment [...] bypass, arterial, femoral to popliteal, using graft ()[id number] FDA Start: 05-26-2025 Creation, bypass, arterial, femoral to popliteal, using graft ()[id number] FDA Start: 05-26-2025 Creation, bypass, arterial, femoral to popliteal, using graft ()[id number] FDA Start: 05-26-2025 Creation, bypass, arterial, femoral to popliteal, using graft ()[id number] FDA Start: 05-26-2025 Creation, bypass, arterial, femoral to popliteal, using graft ()[id number] FDA Start: 05-26-2025 Creation, bypass, arterial, femoral to popliteal, using graft ()[id number] FDA Start: 05-26-2025 Creation, bypass, arterial, [...] bypass, arterial, femoral to popliteal, using graft ()[id number] FDA Start: 06-30-2025 Creation, bypass, arterial, femoral to popliteal, using graft ()[id number] FDA Start: 06-30-2025 [id number] Start: 02-15-2022 End: 06-04-2024 Comment on above: Test blood sugar(s) one times daily. Dx: Other DM Code E11.51 Insulin: No Use as instructed Goals Date Patient Goal Desired Activity /State Functional Status Date Assessment Result Facility 07-09-[address] [facility] Work Phone: 06-30-2025 Functional status Bedrest [facility] Work Phone: 06-29-2025 Functional status With Assist of 1 [facility] Work Phone: 06-27-2025 Functional status Well [facility] Work Phone: 06-18-2025 Functional status Chair [facility] Work Phone: 06-16-2025 Functional status Ambulates;Bath room Privilege [facility] Work Phone: 06-15-2025 Functional status Fair [facility] Work Phone: 06-11-2025 Functional status Bedrest [facility] Work Phone: 06-10-2025 Functional status With Assist of 1 [facility] Work Phone: 06-09-[address] [facility] Work Phone: 06-08-2025 Functional status Ambulates [facility] Work Phone: 06-01-2025 Functional status Ambulates [facility] Work Phone: 05-26-2025 Functional status With Assist of 1 [facility] Work Phone: 05-25-2025 Functional status Chair [facility] Work Phone: 05-21-2025 Functional status Chair [facility] Work Phone: 05-18-2025 Functional status Active [employer] [facility] Work Phone: 03-20-2025 Functional status Up ad praveen;Chair [facility] Work Phone: 03-19-2025 Functional status [...] 06/09/2015 3:01 PM Meka Delgado RN No [facility] 06-09-2015 Are you blind, or do you have serious difficulty seeing, even when wearing glasses No 06/09/2015 3:01 PM Meka Delgado RN No [facility] 06-09-2015 Do you have serious difficulty walking or climbing stairs No 06/09/2015 3:01 PM Meka Delgado RN No [facility] 06-09-2015 Do you have difficul ty dressing or bathing No 06/09/2015 3:01 PM Meka Delgado RN No [facility] 06-09-2015 Because of a physica l, mental, or emotional condition, do you have difficulty doing errands alone such as visiting a physician's office or shopping No 06/09/2015 3:01 PM Meka Delgado RN No [facility] Mental Status Date Assessment Result Facility 07-09-2025 Cognitive function Voice/Name [facility] Work Phone: 07-08-2025 Cognitive function Appropriate;Alvin price [facility] Work Phone: 06-30-2025 Cognitive function Voice/Name [facility] Work Phone: 06-29-2025 Cognitive function Voice/Name [facility] Work Phone: 06-17-2025 Cognitive function Voice/Name [facility] Work Phone: 06-16-2025 Cognitive function Appropriate;C regina;Relaxe d [facility] Work Phone: 06-16-2025 Cognitive function Voice/Name [facility] Work Phone: 06-11-2025 Cognitive function Alert;Follows Commands [facility] Work Phone: 06-10-2025 Cognitive function Voice/Name [facility] Work Phone: 06-08-2025 Cognitive function Voice/Name [facility] Work Phone: 06-07-2025 Cognitive function Voice/Name [facility] Work Phone: 06-06-2025 Cognitive function Appropriate;Cooperativ e [facility] Work Phone: 06-05-2025 Cognitive function Awake;Alert;A ppropriate ;Follows Commands [facility] Work Phone: 06-01-2025 Cognitive function Voice/Name [facility] Work Phone: 05-25-2025 Cognitive function Voice/Name [facility] Work Phone: 05-21-2025 Cognitive function Voice/Name [facility] Work Phone: 05-18-2025 Cognitive function Voice/Name [facility] Work Phone: 03-20-2025 Cognitive function Voice/Name [facility] Work Phone: 03-11-2025 Cognitive function Voice/Name [facility] Work Phone: 01-20-2022 Cognitive function Voice/Name [facility] Work Phone: 06-09-2015 Because of a physica l, mental, or emotional condition, do you have serious difficulty concentrating, remembering, or making decisions No 06/09/2015 3:01 PM EDT Meka Baca RN No [facility] Clinical Notes 11-14-2017 to 07-01-2025 Telephone Encounter - Leatha Johansen RN - 07/01/2025 8:43 AM EDTTelephone Encounter - Leatha Johansen RN - 07/01/2025 8:43 AM EDT Note Date & Type Note Facility 07-01-2025 Telephone encounter Note Form atting of this note might be different from the original. Spoke to Jeannie at [facility] ([phone]) who reported that the pt was referred to Dr. Crocker by Dr. Clement due to pt having a complex finding. Jeannie given scheduling number to make an appointment for pt to see Dr. Crocker. Jeannie verbalized that she will schedule an appointment. Spoke to Rachel at [facility] (where Dr. Clement practices. [phone]) who reported that she will get the pts imaging (CTA with runoff) pushed to [facility] chart for Dr. Crocker to view when pt has her appointment with him. [facility] 07-01-2025 Miscellaneous Notes Formattin g of this note might be different from the original. Spoke to Jeannie at [facility] ([phone]) who reported that the pt was referred to Dr. Crocker by Dr. Clement due to pt having a complex finding. Jeannie given scheduling number to make an appointment for pt to see Dr. Crocker. Jeannie verbalized that she will schedule an appointment. Spoke to Rachel at [facility] (where Dr. Clement practices. [phone]) who reported that she will get the pts imaging (CTA with runoff) pushed to [facility] chart for Dr. Crocker to view when pt has her appointment with him. documented in this encounter [facility] 06-30-2025 History and physi juan m note Note Date/Time June 30, 2025 7:28am [facility] Medical Records Department [address] [place] [address] History & Physical Exam 06/30/25724 MR#: [id number] Acct: [id number] Name: GELY FULLER Rep #:[id number] : 1950 75 From: Russell Clement MD PCP: Dr. Rishi Vasquez, DO Status:AD M IN Location: [facility] A-1 HPI - General General Date of Admission: 06/30/25 HPI Narrative GELY FULLER, is a 75 F who presents with non healing wound, RLE and severe multi level disease. 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 Other specified peripheral vascular diseases Anemia MRSA (methicillin resistant staph aureus) culture [...] stage 3 Atherosclerosis of coronary artery of [place] heart without angina pectoris Hyperlipidemia Peripheral vascular [...] D PRN rash 05/07/25 Unknown History powder ([facility]) acetaminophen 650 mg 650 mg PO [...] caffeine: No ROS Constitutional Constitutional: Denies chills, fever(s), frequent falls, lethargy or weakness Eyes Eyes: Denies blind spots, change in [...] Musculoskeletal: Denies abnormal gait Integumentary Integumentary: Reports other Details: ; Denies erythema, non-healing lesions or wounds Neurologic Neurologic: Denies abnormal speech, focal weakness, headache(s), loss of vision,numbness, paresthesias or sensory deficit Hematologic/Lymphatic Hematologic/Lymphatic: Denies easy bleeding, easy bruising or lymphadenopathy Vital Signs Vital Signs Vital Signs: 06/30/25 06:09 06/30/25 06:09 06/30/25 06:56 Temperature 97.8 F 97.8 F Temperature Source Temporal Pulse Rate 53 L 53 L Respiratory Rate 16 16 Respiratory Pattern Normal Blood Pressure 152/58 H 152/58 H Blood Pressure Mean 89 Blood Pressure Source Monitor Blood Pressure Position Semi-Fowlers Blood Pressure Location Left Arm Pulse Ox 94 94 Oxygen Delivery Method Room Air Weight Weight: 174 lb 6.17 oz Body Mass Index (BMI) 28.1 Physical Exam Const alert, oriented x3, no [...] refill and no clubbing, cyanosis or edema Neuro oriented x3, CN's II-XII intact bilaterally, no focal motor deficits and no sensory deficits noted Psych thought process normal, cooperative, affect normal, speech normal and activity/motor behavior normal Assessment & Plan Assessment/Plan (1) 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 Russell Clement MD; Dr. Rishi Vasquez DO~ Signed [facility] Work Phone: 1(607) 870-891708-12-2025 Consult note [facility] Note Date/Time June 30, 2025 7: 14am [facility] Medical Records Department [address] [place] [address] Consultation - Surgical 06/30/25 0707 MR#: [id number] Acct: [id number] Name: GELY FULLER Melinda Rep #:[id number] : 1950 75 From: Kwaku Tierney MD PCP: Dr. Rishi Vasquez DO Status:AD M IN Location: [place] [address] Assessment & Plan Assessment/Plan (1) Peripheral vascular disease: PLAN: I talked to the patient about my involvement today in surgery (assisting vascular with the vascular procedure, and coverage of the vascular interventionwith a likely muscle flap). We talked about muscle flap options, including sartorius, vastus lateralis, rectus femoris, and rectus abdominis. We talked about the donor site defects for these flaps and potential complications (hernia/bulge, weakening of knee extension, damage to cutaneous nerves/numbness). I talked to the patient extensively about the risks of surgery, including bleeding, infection, damage to surrounding structures, poor scaring, surgical site dehiscence and wound formation, need for wound care, needfor repeat operations, flap failure, failure to obtain the desired result, DVT/PE, and the risks of anesthesia including , including stroke (from low blood pressure/ischemia or clot). The benefits and alternatives of this surgery were also discussed. All of their questions were answered, and they agreed to proceed with surgery. INTERVAL H&P PLAN, DATE OF SURGERY: We will proceed with surgery today. HPI Consult Data Date of Consult: 06/30/25 HPI Narrative HPI Narrative: GELY FULLER is a 75 F who presents today for a R femoral endarterectomy, R femoral-tibial bypass with vascular surgery. They're requesting assistance with the surgery and with flap reconstruction. I talked to the patient today in pre-operative holding. 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 No hernias on palpation. Excess skin (massive weight loss) RLE: Right thigh: No scars Able to extend right leg, able to plantarflex and extend foot 06/30/25 0714 <Electronically signed by Kwaku Tierney MD> Cosigner Signature (if applicable): CC: Dr. Russell Clement MD; Dr. Rishi Vasquez, DO~ Signed [facility] Work Phone: 1([phone]) 955-972508-12-2025 Consult note Author Tigre Cole [facility] Note Date/Time June 30, 2025 6: 56am [facility] Medical Records Department [address] [place] [address] Pre-Anesthesia Evaluation 06/30/25 0651 MR#: [id number] Acct: [id number] Name: JONNYGELY Melinda Rep #:[id number] : 1950 75 From: Tigre JANSEN PCP: Dr. Rishi Vasquez, DO Status:AD M IN Y Race: C Location: [place] [address] ASA Classification* ASA Classification ASA Classification: 3 [...] risk assessments. Anesthesia Type Anesthesia Type: General History Source History Obtained from:: Patient and Chart Anesthesia Focused Assessment* Temperature: 97.8 F Pulse Rate: 53 Blood Pressure: 152/58 Respiratory Rate: 16 Pulse Ox: 94 Airway Assessment Mouth opens: >3 cm Mallampati Score: I Teeth Condition: Dentures and Full (removed) Neck Range of motion (ROM): Full ROM Labs Anesthesia Preop lab: CBC WBC 4.6 K/mm3 (4.4-11.0) 06/23/25 05:50 06/23/25 RBC 2.94 M/mm3 (4.2-5.4) L 06/23/25 05:50 06/23/25 Hgb 8.3 g/dL (12.0-15.0) L 06/29/25 05:24 06/29/25 Hct 26.4 % (37-47) L 06/29/25 05:24 06/29/25 Plt Count 176 K/mm3 (150-450) 06/23/25 05:50 06/23/25 CHEMISTRY Potassium 3.7 mmol/L (3.3-5.1) 06/23/25 05:50 06/23/25 Sodium 144 mmol/L (133-145) 06/23/25 05:50 06/23/25 Magnesium 1.8 mg/dL (1.5-2.2) 06/11/25 09:10 06/11/25 Phosphorus 3.5 mg/dL (2.7-4.5) 06/01/25 10:07 06/01/25 BUN 42 mg/dL (4-19) H 06/23/25 05:50 06/23/25 Creatinine 0.90 mg/dL (0.70-1.20) 06/23/25 05:50 06/23/25 Glucose 78 mg/dL (70-99) 06/23/25 05:50 06/23/25 POC Glucose 72 mg/dL (74-106) L 06/30/25 05:19 06/30/25 TSH < 0.01 uIU/mL (0.358-3.74) L 02/07/17 09:38 COAG PT 14.5 SECONDS (11.7-14.9) 05/27/25 03:05 Pre-Assessment Diagnosis/Proposed Procedure Planned Operative Procedure(s): (R) Right Femoral Endarterectomy, Right femoral to Tibial artery Bypass with Cadaver Graft, Right Sartorius Flap Anesthesia History Anesthesia History - account support analyst: Anesthesia History - account support analyst Hx Hospitalization Yes: 05-26-25 vascular surgery 06/12/25 09:50 Any Problems With Anesthesia No 06/12/25 09:50 Cholinesterase deficiency No 06/12/25 09:50 You/Your Family Experience No 06/12/25 09:50 fever (hyperthermia) with Relationship Recent Exposure to Contagious No 06/30/25 06:09 Disease Does patient have nerve No 06/12/25 09:50 stimulator Patient instructed to have device shut off --Does patient have Pacemaker No 06/30/25 06:09 or ICD? When Was Last Pacemaker Check QUESTION #4 FULL TEXT: You/Your Family Experience fever (hyperthermia) with Anesthesia Last Oral Intake Last Oral intake: Last Oral Intake NPO since 00:00 06/30/25 06:09 Meds taken in AM with sips of No 06/30/25 06:09 water? Meds patient instructed to take am of surgery PONV PONV - account support analyst: PONV - account support analyst Female Yes 06/12/25 09:50 HX of Motion Sickness No 06/12/25 09:50 HX of N/V After Surgery No 06/12/25 09:50 Non-Smoker Yes 06/12/25 09:50 Duration of Surgery greater Yes 06/12/25 09:50 than 60 minutes Number of Risk Factors 3 06/12/25 09:50 PONV Score Moderate Risk 06/12/25 09:50 Height & Weight Height & Weight: Anesthesia: Height & Weight Height 5 ft 6 in 06/30/25 06:09 Weight: 79.1 kg 06/30/25 06:09 Body Mass Index (BMI) 28.1 06/30/25 06:09 Respiratory Assessment Respiratory Assessment - account support analyst: Respiratory Tract Infection Hx - account support analyst Hx Respiratory Tract Infection No 06/12/25 09:50 STOP Sleep Apnea STOP Sleep Apnea - account support analyst: STOP Sleep Apnea - account support analyst Hx Hypertension Yes: on meds 06/12/25 09:50 Hx Sleep Apnea No 06/12/25 09:50 CPAP No 06/05/25 18:48 BIPAP No 05/22/25 14:40 Do you snore loudly (louder No 06/12/25 09:50 than talking or can be heard Do you often feel tired/ No 06/12/25 09:50 fatigued/ sleepy during daytime? Has anyone observed you stop No 06/12/25 09:50 breathing during sleep? STOP Results Negative 06/12/25 09:50 QUESTION #5 FULL TEXT : Do you snore loudly (louder than talking or can be heard through closed doors)? 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 Use History - account support analyst: Tobacco Use History - account support analyst Tobacco Use Cigarettes 04/02/24 09:13 Smoking Status Former smoker 06/12/25 09:50 Hx Tobacco Use No 06/12/25 09:50 Years Smoking Packs Smoked per Day Smoking Cessation Date was No - quit smoking greater 06/12/25 09:50 within the last 15 years than 15 years ago Hx Smoking Cessation Date 01/01/13 05/18/25 02:15 Hx Smoking Cessation No 06/12/25 09:50 Counseling Hematologic Medial History Hematologic Hx - account support analyst: Hematologic Medical Hx - clinical documentation developer Hx of Blood Transfusion Yes 06/12/25 09:50 Hx of Transfusion in last 3 Yes 06/12/25 09:50 Months Date of Last Transfusion (if 06-02-25 06/12/25 09:50 within last 3 months) Ever experience any problems No 06/12/25 09:50 with transfusion(s)? Specify any problems Hx of Preganancy in last 3 No 06/12/25 09:50 Months Nurse Filling Out Transfusion KENNEDI 06/12/25 09:50 & Questions: Date: 06/12/25 06/12/25 09:50 Time: 09:52 06/12/25 09:50 Patient unable to answer at this time (ie. confused, unrespo /Reproduction History /Reproductive History - account support analyst: /Reproductive Hx- account support analyst Hx Now No 06/12/25 09:50 Gestational Age (in weeks): EDC: Hx Hx Para Hx Section SAB No 06/12/25 09:50 Active Medications Active Medications: Current Medications Generic Name Dose Route Start Last Admin Trade Name Freq PRN Reason Stop Dose Admin Cefazolin Sodium 2 gm/ Sodium 110 mls @ 200 mls/hr 06/30/25 07:30 Chloride IV 06/30/25 08:02 INTRAOP ONE Lactated Ringer's 1,000 mls @ 15 mls/hr 06/30/25 06:45 06/30/25 06:36 IV 15 mls/hr .Q48H HADLEY Administration PFSH Medical History (Updated 06/24/25 @ 16:[address] 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 Physical Exam Const alert and oriented x3 Neck full ROM Resp normal respiratory effort, normal air movement and clear to auscultation bilaterally Cardio regular rate and regular rhythm 06/30/25 0656 <Electronically signed by Tigre Cole CRNA> Date _ Tigre Cole CRNA Cosigner Signature: Date CC: ~ Signed [facility] Work Phone: 1([phone]) 313-885808-11-2025 Discharge summary Author Phong Solomon [facility] Note Date/Time June 29, 2025 7: 52am [facility] Medical Records Department [address] [place] [address] Discharge Summary 06/29/25 0740 MR#: [id number] Acct: [id number] Name: GELY FULLER Rep #:[id number] : 1950 75 From: Phong Solomon MD PCP: Dr. Rishi Vasquez, Status:AD M IN Location: [place] [address] Providers Date of Admission: 06/01/25 Primary Care Physician: Dr. 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 EMERGENT [...] daily. * Hyperlipidemia - Atorvastatin 10ng qhs, Geyser 3 1 gram daily. * Indigestion - [...] strengthening, prior to discharge home alone. 06/05/2025 Friend EGD: Impressions : - LA Grade D [...] lovenox and H&H to monitor. Discharge to [facility] 06/30/2025 for following: She is scheduled for [...] Discharge instructions: No Additional Instructions: Discharge to [facility] 06/30/2025 right lower extremity vascular surgery. Please [...] Instructions Additional Instructions / Restrictions: Discharge to [facility] 06/30/2025 right lower extremity vascular surgery. Discharge [...] in before D/C Order can be placed): formerly [facility] 06/29/25 0752 <Electronically signed by Phong Solomon MD> Cosigner Signature (if applicable): CC: Dr. Rishi Vasquez DO; Dr. Phong Solomon MD~ Signed [facility] Work Phone: [phone] 137-565808-11-2025 Consult note Author Rick Barth [facility] Note Date/Time June 29, 2025 2: 25am [facility] Medical Records Department [address] [place] [address] Pharmacokinetic/Renal -Consult 06/29/254 MR#: [id number] Acct: [id number] Name: GELY FULLER Rep #:[id number] : 1950 75 From: Rick Anders od PCP: Dr. Rishi Vasquez DO Status:AD M IN Location: [place] [address] Consult Antibiotic Management Pharmacy has been consulted [...] on [date and time ordered]: 07/02 @ 209906/29/25 0225 <Electronically signed by Rick ramirez> Date _ Rick Knowlesood Cosigner Signature (if applicable): Date CC: ~ Signed [facility] Work Phone: [phone] Progress note Author Abena Fiore [facility] Note Date/Time June 27, 2025 9:0 1am [facility] Medical Records Department [address] [place] [address] Progress Note - Surgery 06/25/25901 MR#: [id number] Acct: [id number] Name: GELY FULLER Rep #:[id number] : 1950 75 From: Abena VYAS PCP: Dr. Rishi Vasquez, DO Status:AD M IN [facility] [place] [facility] Subjective Subjective I saw Gely sitting up [...] regarding these orders. Charges/Coding Procedures Integumentary 111xxx-113xx: 94776 Global Visit 06/25/25 1736 <Electronically signed by Abena VYAS> Cosigner Signature (if applicable): 06/27/25 0901 <Electronically signed by Russell Clement MD> CC: ~ Signed [facility] Work Phone: [phone]) 974-928208-08-2025 Consult note Author Rick Barth [facility] Note Date/Time June 26, 2025 9:4 9pm [facility] Medical Records Department [address] [place] [address] Pharmacokinetic/Renal -Consult 06/26/252146 MR#: [id number] Acct: [id number] Name: GELY FULLER Rep #:[id number] : 1950 75 From: Rick Anders od PCP: Dr. Rishi Vasquez, DO Status:AD M IN Y Location: [place] [facility] Consult Antibiotic Management Pharmacy has been [...] Signature (if applicable): Date CC: ~ Signed [facility] Work Phone: [phone]) 313-935608-07-2025 Consult note Author Rick Negronblood [facility] Note Date/Time June 25, 2025 1:4 4am [facility] Medical Records Department [address] [place] [address] Pharmacokinetic/Renal -Consult 06/25/25 0143 MR#: [id number] Acct: [id number] Name: GELY FULLER Rep #:[id number] : 1950 75 From: Rick Anders od PCP: Dr. Rishi Vasquez, DO Status:AD M IN Location: [place] [address] Consult Antibiotic Management Pharmacy has been consulted [...] Signature (if applicable): Date CC: ~ Signed [facility] Work Phone: 1(213) 414-168708-06-2025 Progress note Author Patel Irene [facility] Note Date/Time June 24, 2025 4:2 7pm [facility] Medical Records Department [address] [place] [address] Progress Note - Surgery 06/24/25 1303 MR#: [id number] Acct: [id number] Name: GELY FULLER Rep #:[id number] : 1950 75 From: Patel Abraham PM PCP: Dr. Rishi Vasquez, DO Status:AD M IN Location: [place] [address] Subjective Subjective Ms. Fuller is a 75-year-old [...] 06/24/25 1627 <Electronically signed by Patel Irene DPLebron> Cosigner Signature (if applicable): CC: ~ Signed [facility] Work Phone: 1(535) 639-338908-05-2025 Progress note Author Patel Irene [facility] Note Date/Time June 23, 2025 6:0 3pm [facility] Medical Records Department [address] [place] [address] Progress Note - Surgery 06/23/251756 MR#: [id number] Acct: [id number] Name: GELY FULLER Rep #:[id number] : 1950 75 From: Patel Abraham PM PCP: Dr. Rishi Vasquez, DO Status:AD M IN Location: [place] [facility] Subjective Subjective Ms. 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 Rishi Vasquez, DO Status:AD M IN Y Location: [place] [address] Consult Antibiotic Management Pharmacy has been consulted [...] 1044 <Electronically signed by Kwaku galan MD> Cosigner Signature (if applicable): Date Kwaku Mendoza MD CC: ~ Signed [facility] Work Phone: 1([phone]) 255-834008-05-2025 Consult note Author Russell Rodriguez [facility] Note Date/Time June 22, 2025 10: 18pm [facility] Medical Records Department [address] [place] [address] Pharmacokinetic/Renal -Consult 06/22/252215 MR#: [id number] Acct: [id number] Name: GELY FULLER Rep #:[id number] : 1950 75 From: Russell Rodriguez PCP: Dr. Rishi Vasquez, DO Status:AD M IN Location: [place] [address] Consult Antibiotic Management Pharmacy has been consulted [...] [date and time ordered]: 06/24/25 @2100 06/22/25 2218 <Electronically signed by Russell shane> Date _ Russell Jules Signature (if applicable): Date CC: ~ Signed [facility] Work Phone: [phone] 201-862908-04-2025 Progress note Author Kwaku Mendoza [facility] Note Date/Time June 22, 2025 11: 30am [facility] Medical Records Department [address] [place] [address] Progress Note - Infect Disease 06/22/25 1128 MR#: [id number] Acct: [id number] Name: GELY FULLER Rep #:[id number] : 1950 75 From: Kwaku díaz MD PCP: Dr. Rishi Vasquez, DO Status:AD M IN Location: [place] [address] Physical Exam Narrative Feeling better, pain in [...] Cosigner Signature (if applicable): CC: ~ Signed [facility] Work Phone: 1([phone]) 385-967608-04-2025 Consult note Author Abena Fiore [facility] Note Date/Time June 22, 2025 9:2 5am [facility] Medical Records Department [address] [place] [address] Consultation - Surgical 06/19/25 1509 MR#: [id number] Acct: [id number] Name: GELY FULLER Rep #:[id number] : 1950 75 From: Abena VYAS PCP: Dr. Rishi Vasquez, DO Status:AD M IN Location: [facility] [place] [address] Assessment & Plan Assessment/Plan (1) Deep vein [...] further drainage from this area. 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 Rishi Vasquez, DO~ Signed [facility] Work Phone: [phone]) 923-964608-02-2025 Consult note Author Russell Rodrigeuz [facility] Note Date/Time June 20, 2025 9:2 0pm [facility] Medical Records Department [address] [place] [address] Pharmacokinetic/Renal -Consult 06/20/252117 MR#: [id number] Acct: [id number] Name: GELY FULLER Melinda Rep #:[id number] : 1950 75 From: Russell Rodriguez PCP: Dr. Rishi Vasquez, DO Status:AD M IN Y Location: [place] [address] Consult Antibiotic Management Pharmacy has been consulted [...] done on [date and time ordered]: 06/22/25 @209906/20/252119 <Electronically signed by Russell shane> Date _ Russell Jules Signature (if applicable): Date _ CC: ~ Signed [facility] Work Phone: [phone]) 571-406807-31-2025 Consult note Author Sepideh Klein [facility] Note Date/Time June 18, 2025 6:56 pm [facility] Medical Records Department [address] [place] [address] Pharmacokinetic/Renal -Consult 06/18/25 1854 MR#: [id number] Acct: [id number] Name: GELY FULLER Rep #:[id number] : 1950 75 From: Sepideh Burris PCP: Dr. Rishi Vasquez, DO Status:AD M IN Location: [place] [address] Consult Antibiotic Management Pharmacy has been consulted [...] and time ordered]: 06/20/25 @ 0730 06/18/25 5252 <Electronically signed by Sepideh Klein> Date _ Sepideh Jules Signature (if applicable): Date CC: ~ Signed [facility] Work Phone: 1([phone]) 330-816607-31-2025 Consult note Author Russell Rodriguez [facility] Note Date/Time June 18, 2025 6:28 am [facility] Medical Records Department [address] [facility] [place] [address] Pharmacokinetic/Renal -Consult 06/18/25625 MR#: [id number] Acct: [id number] Name: GELY FULLER Rep #:[id number] : 1950 75 From: Russell Rodriguez PCP: Dr. Rishi Vasquez, DO Status:AD M IN Location: [place] [address] Consult Antibiotic Management Pharmacy has been consulted [...] [date and time ordered]: 06/18/25 @1730 (random) 06/18/25 0628 <Electronically signed by Russell shane> Date _ Russell W Michael Jules Signature (if applicable): Date CC: ~ Signed [facility] Work Phone: [phone] Consult note Author Adelia Harvey [facility] Note Date/Time June 17, 2025 8:40 pm [facility] Medical Records Department [address] [place] [address] Pharmacokinetic/Renal -Consult 06/17/252039 MR#: [id number] Acct: [id number] Name: GELY FULLER Rep #:[id number] : 1950 75 From: Adelia Harvey PCP: Dr. Rishi Vasquez, DO Status:AD M IN Location: [place] [address] Consult Antibiotic Management Pharmacy has been consulted [...] by Adelia Harvey > Date _ Adelia Balbrunojulien Signature (if applicable): Date CC: ~ Signed [facility] Work Phone: [phone]) 400-681707-30-2025 Progress note Author Patel Irene [facility] Note Date/Time June 17, 2025 4:04 pm [facility] Medical Records Department [address] [place] [address] Progress Note - Surgery 06/17/2546 MR#: [id number] Acct: [id number] Name: GELY FULLER Rep #:[id number] : 1950 75 From: Patel LOBO PCP: Dr. Rishi Vasquez, DO Status:AD M IN Location: [place] [facility] Subjective Subjective Ms. 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 Rachel Jacobs MA [facility] Progress note Author Kwaku Mendoza [facility] Note Date/Time June 16, 2025 10:0 7am [facility] Medical Records Department [address] [place] [address] Progress Note - Infect Disease 06/16/25 1006 MR#: [id number] Acct: [id number] Name: GELY FULLER Rep #:[id number] : 1950 75 From: Kwaku díaz MD PCP: Dr. Rishi Vasquez, DO Status:AD M IN Location: [place] [address] Physical Exam Narrative Feeling ok, no fever, [...] Cosigner Signature (if applicable): CC: ~ Signed [facility] Work Phone: 1(371) 200-182907-29-2025 Consult note Author Mitch Canada [facility] Note Date/Time June 16, 2025 9:12 am [facility] Medical Records Department [address] [place] [address] Pharmacokinetic/Renal -Consult 06/16/25 0628 MR#: [id number] Acct: [id number] Name: GELY FULLER Melinda Rep #:[id number] : 1950 75 From: Mitch Canada PCP: Dr. Rishi Vasquez, DO Status:AD M IN Y Location: [place] [address] Consult Antibiotic Management Pharmacy has been consulted [...] Date Kwaku Mendoza MD CC: ~ Signed [facility] Work Phone: 1([phone]) 434-489307-28-2025 Consult note Author Mitch Canada [facility] Note Date/Time June 15, 2025 1:21 pm [facility] Medical Records Department [address] [place] [address] Pharmacokinetic/Renal -Consult 06/13/252 MR#: [id number] Acct: [id number] Name: GELY FULLER Rep #:[id number] : 1950 75 From: Mitch Canada PCP: Dr. Rishi Vasquez, DO Status:AD M IN Location: [facility]- Consult Antibiotic Management Pharmacy has been consulted [...] Date Kwaku Mendoza MD CC: ~ Signed [facility] Work Phone: 1(611) 822-890907-28-2025 Consult note Author Evelin Rosado [facility] Note Date/Time June 15, 2025 1:21 pm [facility] Medical Records Department [address] [place] [address] Pharmacokinetic/Renal -Consult 06/15/25 1220 MR#: [id number] Acct: [id number] Name: JONNYGELY L Rep #:[id number] : 1950 75 From: Evelin Rosado PCP: Dr. Risih Vasquez, DO Status:AD M IN Location: [place] [address] Consult Antibiotic Management Pharmacy has been consulted [...] Date Kwaku Mendoza MD CC: ~ Signed [facility] Work Phone: 1([phone]) 489-551407-28-2025 Telephone encounter Note* Telephone Encounter - Rishi Vasquez DO - 06/15/2025 7:33 AM EDT Noted Labs reviewed Please update the A1c and lipids results in Rishi Vasquez DO [facility]07-25-2025 Consult note Author Rin Guido [facility] Note Date/Time June 12, 2025 11:3 6am [facility] Medical Records Department [address] [place] [address] Pharmacokinetic/Renal -Consult 06/12/25 1115 MR#: [id number] Acct: [id number] Name: GELY FULLER Rep #:[id number] : 1950 75 From: Rin Guido PCP: Dr. Rishi Vasquez DO Status:AD M IN Y [facility] Management Pharm[facility] has been consulted [...] MG Q12H Number of Doses Received: 2 (9060, 3860) Vancomycin Level: 12.6 Hours Since Last Dose: [...] on [date and time ordered]: 06/13/2025 @ 2200 06/12/25 1121 <Electronically signed by Rin palafox> Date _ Rin Guido 06/12/25 1136 <Electronically signed by Phong Abraham> Cosigner Signature (if applicable): Date Phong Solomon MD CC: ~ Signed [facility] Work Phone: 1(963) 663-592807-25-2025 Telephone encounter Note* Telephone Encounter - Rachel Jacobs MA - 06/12/2025 1:25 PM EDT Scan on 06/12/2025 11:59 AM by Provider, External, PASergioC: Admit [facility] 06/12/25- Current A1C \T\ CMP for review Patient admitted to [facility] faxed current A1C & CMP results. Rachel Jacobs MA [facility]07-25-2025 Progress note Author Kwaku Mendoza [facility] Note Date/Time June 12, 2025 11:1 3am [facility] Medical Records Department [address] [place] [address] Progress Note - Infect Disease 06/12/25 1112 MR#: [id number] Acct: [id number] Name: JONNYGELY Melinda Rep #:[id number] : 1950 75 From: Kwaku díaz MD PCP: Dr. Rishi Vasquez, DO Status:AD M IN Location: [address] Physical Exam Narrative Feeling better, diarrhea resolved, [...] Cosigner Signature (if applicable): CC: ~ Signed [facility] Work Phone: 1(149) 509-492507-24-2025 Discharge summary Author Shahnaz Bishop [facility] Note Date/Time June 11, 2025 2:38 pm [facility] Medical Records Department [address] [place] [address] Emergency Department Summary 06/11/25 MR#: [id number] Acct: [id number] Name: GELY FULLER Rep #:[id number] : 1950 75 From: Shahnaz Iqbal PCP: [...] not receive any antipyretics prior to arrival. 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 Reading Location: [place] Management Discussion w/another healthcare provider: PCP Discharge [...] fluids. Continue to give antibiotics. Print Language: Romanian Disposition Disposition: Senior Living Facility Discharge Location: [facility] Transitional Care Unit What to do if you have Problems For any increased pain, shortness of breath, bleeding, nausea or vomiting, chestpain, or any unexpected problems, contact your Primary Care Provider. Call [facility] ([phone]) or report to the closest Emergency Room. Call 911 if necessary. 06/11/25 1436 <Electronically signed by Shahnaz Bishop DO> Cosigner Signature (if applicable): CC: Dr. Rishi Vasquez DO ~ Signed [facility] Work Phone: 1(654) 245-888107-24-2025 Consult note Author Antonino Grimes [facility] Note Date/Time June 11, 2025 9:00 am [facility] Medical Records Department [address] [place] [address] Pharmacokinetic/Renal -Consult 06/10/25 1354 MR#: [id number] Acct: [id number] Name: GELY FULLER Rep #:[id number] : 1950 75 From: Antonino Osborn ly PCP: Dr. Rishi Vasquez DO Status:AD M IN Y Location: [place] [address] Consult Antibiotic Management Pharmacy has been consulted [...] Date Kwaku Mendoza MD CC: ~ Signed [facility] Work Phone: 1(231) 476-738407-24-[address] [facility]07-23-2025 Progress note Author Patel Irene [facility] Note Date/Time June 10, 2025 5:17 pm [facility] Medical Records Department [address] [place] [address] Progress Note - Surgery 06/10/25 1406 MR#: [id number] Acct: [id number] Name: GELY FULLER Rep #:[id number] : 1950 75 From: Patel Abraham PM PCP: Dr. Rishi Vasquez, DO Status:AD M IN Location: [facility] Subjective Subjective Patient is a 75-year-old diabetic [...] Sl. Cloudy, Urine pH 6.0, Ur Specific Exmore 1.015, Urine Protein 30 H, Urine Glucose [...] 81.0 H, Lymph % (Auto) 8.2 L, Antelope % (Auto) 9.4, Eos % (Auto) 0.6, [...] physical therapy and Occupational Therapy and having odwisq-xjw-spele care with the nursing staff in the [...] vascular diseases: (7) Charcot joint of foot: 06/10/25 1716 <Electronically signed by Patel Irene DPM> Cosigner Signature (if applicable): CC: ~ Signed [facility] Work Phone: 1([phone] 500-745907-23-[address] [facility]07-23-2025 Progress note [facility] Note Date/Time June 10, 2025 1:39 pm [facility] Medical Records Department [address] [place] [address] Progress Note - Infect Disease 06/10/25 1336 MR#: [id number] Acct: [id number] Name: GELY FULLER Rep #:[id number] : 1950 75 From: Kwaku díaz MD PCP: Dr. Rishi Vasquez, DO Status:AD M IN Location: [place] [address] Physical Exam Narrative Fever overnight, not feeling [...] Will follow, d/w nursing and Dr. Irene 06/10/25 2593 <Electronically signed by Kwaku Mendoza MD> Cosigner Signature (if applicable): CC: ~ Signed [facility] Work Phone: 1(906) 319-202207-18-2025 Consult note Author Zachary Rodriguez [facility] Note Date/Time June 05, 2025 7:23 pm [facility] Medical Records Department [address] [place] [address] Anesthesia Postop Eval II 06/05/251917 MR#: [id number] Acct: [id number] Name: GELY FULLER Rep #:[id number] : 1950 75 From: Zachary Rodriguez MD PCP: Dr. Rishi Vasquez, DO Status:RE G SDC Y Race: C Location: [facility] Anesthesia Postop Eval I Sum Postop [...] MD Cosigner Signature: Date CC: ~ Signed [facility] Work Phone: 1(854) 130-971507-18-2025 Consult note Author Zachary [facility] Note Date/Time June 05, 2025 6:50 pm [facility] Medical Records Department [address] [place] [address] Anesthesia Postop Eval I 06/05/25 1848 MR#: [id number] Acct: [id number] Name: GELY FULLER Rep #:[id number] : 1950 75 From: Zachary Rodriguez MD PCP: Dr. Rishi Vasquez, DO Status:RE G SD Y Race: C Location: [place] [address] Anesthesia: Postop Eval I Current Vital Signs [...] MD Cosigner Signature: Date CC: ~ Signed [facility] Work Phone: 1([phone]) 583-514607-18-2025 Consult note Author Zachary [facility] Note Date/Time June 05, 2025 6:23 pm [facility] Medical Records Department [address] [place] [address] Pre-Anesthesia Evaluation 06/05/25 1818 MR#: [id number] Acct: [id number] Name: GELY FULLER Rep #:[id number] : 1950 75 From: Zachary Rodriguez MD PCP: Dr. Rishi Vasquez, DO Status:RE G SD Y Race: C Location: [place] [address] ASA Classification* ASA Classification ASA Classification: 3 [...] Procedure(s): EGD Anesthesia History Anesthesia History - account support analyst: Anesthesia History - account support analyst Hx Hospitalization Yes: 02/2025 FELL 05/08/25 10:01 [...] sips of water?: Yes PONV PONV - account support analyst: PONV - account support analyst Female HX of Motion Sickness HX of N/V After Surgery Non-Smoker Duration of Surgery greater than 60 minutes Number of Risk Factors PONV Score Height & Weight Height & Weight: Anesthesia: Height & Weight Height 5 ft 6 in 06/05/25 17:32 Weight: 73.457 kg 06/05/25 17:32 Body Mass Index (BMI) 26.1 06/05/25 17:32 Respiratory Assessment Respiratory Assessment - account support analyst: Respiratory Tract Infection Hx - account support analyst Hx Respiratory Tract Infection No 05/25/25 21:37 STOP Sleep Apnea STOP Sleep Apnea - account support analyst: STOP Sleep Apnea - account support analyst Hx Hypertension Yes 06/02/25 11:36 Hx Sleep [...] 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 Use History - account support analyst: Tobacco Use History - account support analyst Tobacco Use Cigarettes 04/02/24 09:13 Smoking Status Former smoker 06/01/25 18:32 Hx Tobacco Use No 06/01/25 18:32 Years Smoking Packs Smoked per Day Smoking Cessation Date was within the last 15 years Hx Smoking Cessation Date Hx Smoking Cessation No 06/01/25 18:32 Counseling Hematologic Medial History Hematologic Hx - account support analyst: Hematologic 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 Specify any problems Hx of Preganancy in last 3 Months Nurse Filling Out Transfusion & Questions: Date: Time: Patient unable to answer at this time (ie. 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 06/05/251822 <Electronically signed by Zachary mcguire MD> Date _ Zachary Rodriguez MD Cosigner Signature: Date CC: ~ Signed [facility] Work Phone: 1([phone]) 281-921207-18-2025 History and physical note Author Ortega Friend [facility] Note Date/Time June 05, 2025 5:40 pm [facility] Medical Records Department [address] [place] [address] History & Physical Exam 06/05/25 6719 MR#: [id number] Acct: [id number] Name: GELY FULLER Rep #:[id number] : 1950 75 From: Ortega aYnez DO PCP: Dr. Rishi Vasquez DO Status:[facility] Location: [facility] HPI - General General Date of Admission: [...] also having some abdominal pain. 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 06-05-[address] [facility]07-17-2025 Consult note Author Ortega Yanez [facility] Note Date/Time June 04, 2025 6:09 pm [facility] Medical Records Department [address] [place] [address] Consultation - GI 06/04/25 1805 MR#: [id number] Acct: [id number] Name: GELY FULLER Rep #:[id number] : 1950 75 From: Ortega Yanez DO PCP: Dr. Rishi Vasquez, DO Status:AD M IN Location: [facility] HPI Consult Data Date of Consult: 06/04/25 [...] also having some abdominal pain. [facility] Medical History (Updated 06/04/25 @ 18:[address] 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 Charges/Coding Visit Charges Inpatient E&M: 22834 SNF Init L2 06/04/25 1809 <Electronically signed by rOtega Friend > Cosigner Signature (if applicable): CC: Dr. Rishi Vasquez DO~ Signed [facility] Work Phone: 1(694) 472-847907-17-2025 Progress note Author Evelin Rosado [facility] Note Date/Time June 04, 2025 3:59 pm [facility] Medical Records Department [address] [place] [address] Progress Note - Pharmacy 06/04/25 1430 MR#: [id number] Acct: [id number] Name: GELY FULLER Rep #:[id number] : 1950 75 From: Evelin Rosado PCP: [...] Freq PRN Reason Stop Dose Admin Acetaminophen 1,000 [...] HADLEY Administration Protocol Calcium Carbonate 500 mg 06/02/25 [...] 15gm Bottle TOPICAL BID PRN rash Protocol Gasvn-2-Mmhp Ethyl Esters 1 gm 06/02/25 10:00 06/04/25 10:16 Geyser-3 Acid Ethyl Esters 1 Gm Capsule PO [...] usage, constipation, respiratory depression, LFTs and falls (BEERs). 2. Bowel: senna/docusate 2T PO BID and [...] 1506 <Electronically signed by Evelin Rosado> Evelin Jules Signature (if applicable): 06/04/25 1559 <Electronically signed by Phong Solomon MD> CC: ~ Signed [facility] Work Phone: 1(846) 969-467507-17-2025 Consult note Author Kwaku Mendoza [facility] Note Date/Time June 04, 2025 1:48 pm [facility] Medical Records Department [address] [place] [address] Consultation - Infectious Dx 06/04/25 1345 MR#: [id number] Acct: [id number] Name: GELY FULLER Rep #:[id number] : 1950 75 From: Kwaku díaz MD PCP: Dr. Rishi Vasquez, DO Status:AD M IN Location: [place] [address] Assessment & Plan Assessment/Plan (1) Acute osteomyelitis of left ankle: PLAN: Reviewed labs, imaging, path, and hospital records. Path was neg for osteo. Completed 2 weeks po linezolid and grafts doing well. With sulfa allergy and MRSA I to doxy, no good oral options for custodial treatment. I think to continue with plan from prior ID Dr. Polk is reasonable at this point to monitor off of abx. Will follow, thank you HPI Consult Data Date of Consult: 06/04/25 HPI Narrative Reason for Consultation: (+) cx HPI Narrative: GELY FULLER, is a 75 F who was transferred to [facility]. Had surgery 05/20/[address] Irene. Ankle bone cx with MRSA, actino, prevotella, and anaerobes. Path wasneg for osteo. Given 2 week course po linezolid. Per Dr. Irene today, grafts onBLE are stable with no sign of infection. She is feeling well, no fever, no n/v/d. Full ROS performed and neg except as noted above. 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 Rishi Vasquez, DO~ Signed [facility] Work Phone: 1(191) 902-222007-17-2025 Consult note Author Patel Irene [facility] Note Date/Time June 04, 2025 9:11 am [facility] Medical Records Department [address] [place] [address] Consultation 06/04/2531 MR#: [id number] Acct: [id number] Name: GELY FULLER Rep #:[id number] : 1950 75 From: Patel Abraham PM PCP: Dr. Rishi Vasquez, Status:AD M IN Location: [place] [address] Assessment & Plan Assessment/Plan (1) Acute osteomyelitis of left ankle: PLAN: Patient was examined and evaluated. All findings are discussed with the patient. All questions were answered to the patient satisfaction. Review of the microbiology culture and sensitivity taken on 05/20/2025 show evidence of MRSA growth. Will defer antibiotic treatment to infectious disease. Recommend infectious disease consultation with Dr. Pitt WBC: 3.8 HbA1c: 7.6 Glucose: 104 Medicine: [...] pedal complaints at this time. [facility] Medical History (Updated 06/04/25 @ 09:[address] 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 Rishi Vasquez, DO~ Signed [facility] Work Phone: 1([phone]) 927-663707-16-2025 History and physical note Author Phong Solomon [facility] Note Date/Time June 03, 2025 7:34 am [facility] Medical Records Department [address] [place] [address] History & Physical Exam 06/01/251940 MR#: [id number] Acct: [id number] Name: GELY FULLER Rep #:[id number] : 1950 75 From: Phong Solomon MD PCP: Dr. Rishi Vasquez, Status:AD M IN [facility] HPI - General General Date of Admission: 06/01/25 Date of Service: 06/02/25 Chief Complaint: Here for rehabilitation. HPI Narrative GELY FULLER, is a 75 Female who presents with followin05/22/2025 [facility] ED fall. Slid out of chair, fell, sat for a while. Unable to get up, EMS called, recent foot surgery 05/20/2025. Lives alone, unsafe to go home. 05/22/2025 Admit [facility]. PT/OT/CM for SNF. Continue Linezolid for MRSA [...] prior to discharge home alone. 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 * Hyperlipidemia - Atorvastatin 10ng qhs, Geyser 3 1 gram daily. * Indigestion - [...] on 06/03/25 at 0734 Addendum I left vm for Gely's brother Vlad regarding right shoulder pain, X-ray showeddegenerative changes, schedule [facility] appointment for right shoulder pain/right rotator cuff. 06/03/25 0734<Electronically signed by Phong Solomon MD> Cosigner Signature (if applicable): cc: Dr. Rishi Vasquez DO; Dr. Phong Solomon MD ~* Signed [facility] Work Phone: 1(277) 109-114307-15-[address] [facility]07-14-2025 Discharge summary Author Christos Morrow [facility] Note Date/Time June 01, 2025 2:34 pm [facility] Medical Records Department [address] [place] [address] Transfer to [facility] MR#: [id number] Acct: [id number] Name: GELY FULLER Rep #:[id number] : 1950 75 From: Christos Morrow MD PCP: Dr. Rishi Vasquez, Status:AD M IN Certification of patient admission REQUIRED AT TIME OF ADMISSION. I CERTIFY THAT POST-HOSPITAL ECF SERVICES ARE REQUIRED TO BE GIVEN ON AN IN-PATIENT BASIS BECAUSE OF THE ABOVE NAMED PATIENT'S NEED FOR PRISON CARE ON A CONTINUING BASIS FOR THE CONDITION(S) FOR WHICH HE/SHE WAS RECEIVING IN-PATIENT HOSPITAL SERVICES PRIOR TO HIS/HER TRANSFER TO THE F. 06/01/25 1434<Electronically signed by Christos Morrow MD> [...] dry dressing Buttocks: Wound Type: Pressure Injury alexia cleft: Wound Type: moisture associated skin damage [...] ? Requested for PT OT eval and healthcare social worker to assist with discharge planning 2. Bilateral [...] in before D/C Order can be placed): Senior Living Facility 06/01/25 1434 <Electronically signed by Christos Morrow MD> Cosigner Signature (if applicable): CC: ONEIDA Irene; Dr. Wilberto Suazo DO; Dr. Maddie Merchant MD; Dr. Russell Clement MD; Dr. Rishi Vasquez DO; Dr. Michaela Joshua DO ~ [facility] Work Phone: 1(344) 523-886007-14-2025 Discharge summary Author Christos Mororw [facility] Note Date/Time June 01, 2025 2:32 pm [facility] Medical Records Department [address] [place] [address] Discharge Summary 06/01/25 1424 MR#: [id number] Acct: [id number] Name: GELY FULLER Melinda Rep #:[id number] : 1950 75 From: Christos Morrow MD PCP: Dr. Rishi Vasquez DO Status:AD M IN [facility]6 Providers Date of Admission: 05/25/25 Primary Care Physician: Dr. Rishi Vasquez DO Consultations 05/23/25 09:23 Consult: Podiatry Routine Consulting Provider: Patel Irene Reason for Consult: wounds EMERGENT Consult: No MD Notified: Yes Date Notified: 05/23/25 Time Notified: 09:24 Method of Notification: phone 05/24/25 09:54 Consult: Vascular Surgery Routine Consulting Provider: Russell Clement Reason for Consult: PVD EMERGENT Consult: No Notified: Yes Date Notified: 05/24/25 Time Notified: 09:55 Method of Notification: Verbal 05/29/25 06:37 Consult: Onc/Wound/steel loader Routine Comment: Reason for Consult:: bilateral feet, [...] ? Requested for PT OT eval and healthcare social worker to assist with discharge planning 2. Bilateral [...] in before D/C Order can be placed): Senior Living Facility Charges/Coding Visit Charges Inpatient E&M: 30237 Disch Hosp >30min 06/01/25 1432 <Electronically signed by Christos Morrow MD> Cosigner Signature (if applicable): CC: Dr. Christos Morrow MD; Dr. Rishi Vasquez DO~ Signed [facility] Work Phone: 1(333) 731-885807-14-2025 Progress note Author Abena Fiore [facility] Note Date/Time June 01, 2025 11:4 2am [facility] Medical Records Department [address] [place] [address] Progress Note - Surgery 05/29/25 1650 MR#: [id number] Acct: [id number] Name: GELY FULLER Rep #:[id number] : 1950 75 From: Abena VYAS PCP: Dr. Rishi Vasquez, DO Status:AD M IN Location: MS3 IK598-5 Subjective Subjective I saw Gely sitting up [...] 80.6 H, Lymph % (Auto) 11.7 L, Antelope % (Auto) 4.3, Eos % (Auto) 1.3, [...] TCU pending precert. Charges/Coding Procedures Integumentary 111xxx-113xx: 52831 Global Visit 05/29/25 1654 <Electronically signed by Abena VYAS> Cosigner Signature (if applicable): 06/01/25 1142 <Electronically signed by Russell Clement MD> CC: ~ Signed [facility] Work Phone: 1(957) 863-109407-14-2025 Progress note Author Christos Morrow [facility] Note Date/Time June 01, 2025 9:16 am [facility] Medical Records Department [address] [place] [address] Progress Note - Hospitalist 06/01/2504 MR#: [id number] Acct: [id number] Name: GELY FULLER Rep #:[id number] : 1950 75 From: hCristos Morrow MD PCP: Dr. Rishi Vasquez, DO Status:AD M IN [place] [facility] PX670-7 Reason for Visit Chief Complaint: Generalized weakness [...] ? Requested for PT OT eval and healthcare social worker to assist with discharge planning 2. Bilateral [...] Subcu heparin Charges/Coding Visit Charges Inpatient E&M: 51190 Subs Hosp L2 06/01/25 0916 <Electronically signed by Christos Morrow MD> Cosigner Signature (if applicable): CC: ~ Signed [facility] Work Phone: 1(178) 874-912807-13-2025 Progress note Author Maddie Merchant [facility] Note Date/Time May 31, 2025 11:2 7am [facility] Medical Records Department [address] [place] [address] Progress Note - Hospitalist 05/31/25708 MR#: [id number] Acct: [id number] Name: GELY FULLER Melinda Rep #:[id number] : 1950 75 From: Maddie Merchant MD PCP: Dr. 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 Charges/Coding Visit Charges Inpatient E&M: 74551 Subs Hosp L2 05/31/25 1127 <Electronically signed by Maddie Merchant MD> Cosigner Signature (if applicable): CC: ~ Signed [facility] Work Phone: 1(853) 375-943407-12-2025 Progress note Author Maddie [facility] Note Date/Time May 30, 2025 10:0 2am [facility] Medical Records Department [address] [place] [address] Progress Note - Hospitalist 05/30/25711 MR#: [id number] Acct: [id number] Name: GELY FULLER Rep #:[id number] : 1950 75 From: Maddie Merchant MD PCP: Dr. 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 Charges/Coding Visit Charges Inpatient E&M: 17831 Subs Hosp L2 05/30/25 1002 <Electronically signed by Maddie Merchant MD> Cosigner Signature (if applicable): CC: ~ Signed [facility] Work Phone: [phone]) [phone] Progress note Author Maddie Merchant [facility] Note Date/Time May 29, 2025 11:1 7am [facility] Medical Records Department [address] [facility] [place] [address] Progress Note - Hospitalist 05/29/25 0659 MR#: [id number] Acct: [id number] Name: GELY FULLER Rep #:[id number] : 1950 75 From: Maddie Merchant MD PCP: Dr. 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 Charges/Coding Visit Charges Inpatient E&M: 27857 Subs Hosp L2 05/29/25 1117 <Electronically signed by Maddie Merchant MD> Cosigner Signature (if applicable): CC: ~ Signed [facility] Work Phone: 1([phone]) 486-464007-10-2025 Discharge summary Author [facility] Note Date/Time May 28, 2025 3:12 pm [facility] Medical Records Department [address] [place] [address] Transfer to [facility] MR#: [id number] Acct: [id number] Name: GELY FULLER Rep #:[id number] : 1950 75 From: Maddie Merchant MD PCP: Dr. Rishi Vasquez, DO Status:AD M IN Certification of patient admission REQUIRED AT TIME OF ADMISSION. I CERTIFY THAT POST-HOSPITAL ECF SERVICES ARE REQUIRED TO BE GIVEN ON AN IN-PATIENT BASIS BECAUSE OF THE ABOVE NAMED PATIENT'S NEED FOR PRISON CARE ON A CONTINUING BASIS FOR THE CONDITION(S) FOR WHICH HE/SHE WAS RECEIVING IN-PATIENT HOSPITAL SERVICES PRIOR TO HIS/HER TRANSFER TO THE [facility]. 05/28/25 1512<Electronically signed by Maddie Merchant MD> [...] in before D/C Order can be placed): Senior Living Facility 05/28/25 1512 <Electronically signed by Maddie Merchant MD> Cosigner Signature (if applicable): CC: ONEIDA Irene; Dr. Wilberto Suazo DO; Dr. Russell Clement MD; Dr. Rishi Vasquez DO; Dr. Michaela Joshua DO ~ [facility] Work Phone: [phone] Progress note Author Abena Fiore [facility] Note Date/Time May 28, 2025 12:1 3pm [facility] Medical Records Department [address] [place] [address] Progress Note - Surgery 05/28/25 0832 MR#: [id number] Acct: [id number] Name: GELY FULLER Rep #:[id number] : 1950 75 From: Abena VYAS PCP: [...] 77.8 H, Lymph % (Auto) 12.6 L, Antelope % (Auto) 6.5, Eos % (Auto) 0.7, [...] occlusive disease: PLAN: She is POD#2 from [facility], [facility]-peroneal bypass with cadaver graft, and left sartorius [...] continue to follow. Charges/Coding Procedures Integumentary 111xxx-113xx: 49107 Global Visit 05/28/25 0951 <Electronically signed by Abena VYAS> Cosigner Signature (if applicable): 05/28/25 1213 <Electronically signed by Russell Clement MD> CC: ~ Signed [facility] Work Phone: [phone]) 774-908107-10-2025 Progress note Author Maddie Merchant [facility] Note Date/Time May 28, 2025 11:3 1am [facility] Medical Records Department [address] [place] [address] Progress Note - Hospitalist 05/28/25 0651 MR#: [id number] Acct: [id number] Name: GELY FULLER Rep #:[id number] : 1950 75 From: Maddie Merchant MD PCP: Dr. 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 Charges/Coding Visit Charges Inpatient E&M: 03555 Subs Hosp L2 05/28/25 1131 <Electronically signed by Maddie Merchant MD> Cosigner Signature (if applicable): CC: ~ Signed [facility] Work Phone: [phone] 242-972707-10-2025 Progress note Author Abena Fiore [facility] Note Date/Time May 28, 2025 7:26 am [facility] Medical Records Department [address] [place] [address] Progress Note - Surgery 05/27/25 1010 MR#: [id number] Acct: [id number] Name: GELY FULLER Rep #:[id number] : 1950 75 From: Abena VYAS PCP: [...] Intake and Output for Last 24 Hours 0705/26/25 05/27/25 23:59 23:59 23:59 Intake Total 900 [...] 86.8 H, Lymph % (Auto) 5.2 L, Antelope % (Auto) 4.3, Eos % (Auto) 0.4, Baso % (Auto) 0.6, Absolute Neuts (auto) 13.9 H, Absolute Lymphs (auto) 0.83, Nucleated RBC % 0 05/26/25 15:43: POC Glucose 193 H 05/26/25 15:56: Urine Color Yellow, Urine Clarity Turbid, Urine pH 5.0, Ur Specific Exmore 1.025, Urine Protein 100 H, Urine Glucose [...] 83.8 H, Lymph % (Auto) 7.3 L, Antelope % (Auto) 5.8, Eos % (Auto) 0.1, [...] for discharge tomorrow. Charges/Coding Procedures Integumentary 111xxx-113xx: 43351 Global Visit 05/27/25 1640 <Electronically signed by Abena VYAS> Cosigner Signature (if applicable): 05/28/25 0726 <Electronically signed by Russell Clement MD> CC: ~ Signed [facility] Work Phone: [phone] 423-556807-09-2025 Progress note Author Maddie Merchant [facility] Note Date/Time May 27, 2025 10:02 am [facility] Medical Records Department [address] [place] [address] Progress Note - Hospitalist 05/27/25 0647 MR#: [id number] Acct: [id number] Name: GELY FULLER Melinda Rep #:[id number] : 1950 75 From: Maddie Merchant MD PCP: Dr. 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 if it is TCU and bed has [...] Code status. Charges/Coding Visit Charges Inpatient E&M: 58172 Subs Hosp L3 05/27/25 1002 <Electronically signed by Maddie Merchant MD> Cosigner Signature (if applicable): CC: ~ Signed [facility] Work Phone: [phone]) [phone] Consult note Author Zachary Rodriguez [facility] Note Date/Time May 27, 2025 12:36 am [facility] Medical Records Department [address] [place] [address] Anesthesia Postop Eval II 05/27/25 0035 MR#: [id number] Acct: [id number] Name: GELY FULLER Rep #:[id number] : 1950 75 From: Zachary Rodriguez MD PCP: Dr. Rishi Vasquez, DO Status:AD M IN Y Race: C Location: ICU CVICU 203-1 Anesthesia Postop Eval I Sum Postop Eval Completion status Anesthesia document: Postop Eval 1 completed: No Anesthesia Postop Eval I Summary Anesthesia Postop Eval I Summary: Anesthesia Postop Eval I: Assessment Summary Airway patent Yes 05/26/25 14:39 RETAIL DEPARTMENT SUPERVISOR.SOBR Spontaneous unlabored No 05/26/25 14:39 RETAIL DEPARTMENT SUPERVISOR.SOBR respirations Mental status Awake 05/26/25 14:39 RETAIL DEPARTMENT SUPERVISOR.SOBR nausea No 05/26/25 14:39 RETAIL DEPARTMENT SUPERVISOR.SOBR Vomiting No 05/26/25 14:39 RETAIL DEPARTMENT SUPERVISOR.SOBR Anesthesia Postop Eval I: Fluid Summary Crystalloid volume administer 2,500 05/26/25 14:39 RETAIL DEPARTMENT SUPERVISOR.SOBR (ml) Colloids volume administered ( ml) Blood Product volume 300 05/26/25 14:39 RETAIL DEPARTMENT SUPERVISOR.SOBR administered (ml) Total IV fluid infused 2,800 05/26/25 14:39 RETAIL DEPARTMENT SUPERVISOR.SOBR Anesthesia Postop Eval I: Summary Notes Anesthesia Complication No 05/26/25 14:39 RETAIL DEPARTMENT SUPERVISOR.SOBR Anesthesia Complication Comment: Post-operative progress note Anesthesia: Postop Eval II Evaluation Mental status: Awake and Calm Pain Level: 1 nausea: No Vomiting: No Progress Note Post-operative progress note: Breathing easily. Complications Anesthesia Complication: No 05/27/25 0036 <Electronically signed by Zachary mcguire MD> Date _ Zachary Rodriguez MD Cosigner Signature: Date CC: ~ Signed [facility] Work Phone: [phone]) [phone] Progress note Author Maddie Merchant [facility] Note Date/Time May 26, 2025 3:53p m [facility] Medical Records Department [address] [place] [address] Progress Note - Hospitalist 05/26/25 0657 MR#: [id number] Acct: [id number] Name: GELY FULLER Rep #:[id number] : 1950 75 From: Maddie Merchant MD PCP: Dr. 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 Cleemnt and reevaluated in PACU. In PACU patient [...] Code status. Charges/Coding Visit Charges Inpatient E&M: 64998 Subs Hosp L3 05/26/25 8862 <Electronically signed by Maddie Merchant MD> Cosigner Signature (if applicable): CC: ~ Signed [facility] Work Phone: [phone]) [phone] Consult note Author Ricardo Millville [facility] Note Date/Time May 26, 2025 2:39p m [facility] Medical Records Department [address] [place] [address] Anesthesia Postop Eval I 05/26/25 1438 MR#: [id number] Acct: [id number] Name: GELY FULLER Rep #:[id number] : 1950 75 From: Ricardo PINZON PCP: Dr. Rishi Vasquez, DO Status:AD M IN Y Race: C Location: ICU CVICU Anesthesia: Postop Eval I Current Vital Signs [...] Ricardo Deras CRNA> Date _ Ricardo Deras CRNA Cosigner Signature: Date CC: ~ Signed [facility] Work Phone: [phone]) 539-447207-08-[address] [facility] 05-26-2025 Consult note Author Zachary Rodriguez [facility] Note Date/Time May 26, 2025 6:43a m [facility] Medical Records Department [address] [place] [address] Pre-Anesthesia Evaluation 05/26/25 0635 MR#: [id number] Acct: [id number] Name: GELY FULLER Rep #:[id number] : 1950 75 From: Zachary Rodriguez MD PCP: Dr. Rishi Vasquez, DO Status:AD M IN Y Race: C Location: [place] [address] ASA Classification* ASA Classification ASA Classification: 4 [...] sartorius flap. Anesthesia History Anesthesia History - account support analyst: Anesthesia History - account support analyst Hx Hospitalization Yes: 02/2025 FELL 05/08/25 10:01 [...] take am of surgery PONV PONV - account support analyst: PONV - account support analyst Female HX of Motion Sickness HX of N/V After Surgery Non-Smoker Duration of Surgery greater than 60 minutes Number of Risk Factors PONV Score Height & Weight Height & Weight: Anesthesia: Height & Weight Height 5 ft 6 in 05/23/25 10:49 Weight: 73.618 kg 05/26/25 05:18 Body Mass Index (BMI) 26.2 05/22/25 14:40 Respiratory Assessment Respiratory Assessment - account support analyst: Respiratory Tract Infection Hx - account support analyst Hx Respiratory Tract Infection No 05/25/25 21:37 STOP Sleep Apnea STOP Sleep Apnea - account support analyst: STOP Sleep Apnea - account support analyst Hx Hypertension Yes 05/23/25 08:06 Hx Sleep [...] 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 Use History - account support analyst: Tobacco Use History - account support analyst Tobacco Use Cigarettes 04/02/24 09:13 Smoking Status Former smoker 05/22/25 14:40 Hx Tobacco Use No 05/22/25 14:40 Years Smoking Packs Smoked per Day Smoking Cessation Date was Yes - quit smoking within 15 05/22/25 14:40 within the last 15 years years Hx Smoking Cessation Date 01/01/13 05/22/25 14:40 Hx Smoking Cessation No 05/22/25 14:40 Counseling Hematologic Medial History Hematologic Hx - account support analyst: Hematologic Medical Hx - clinical documentation developer Hx of Blood Transfusion Yes 05/22/25 14:40 Hx of Transfusion in last 3 Yes 05/22/25 14:40 Months Date of Last Transfusion (if UNKNOWN 05/22/25 14:40 within last 3 months) Ever experience any problems No 05/22/25 14:40 with transfusion(s)? Specify any problems Hx of Preganancy in last 3 No 05/22/25 14:40 Months Nurse Filling Out Transfusion THOMAS 05/22/25 14:40 & Questions: Date: 05/22/25 05/22/25 14:40 Time: 15:54 05/22/25 14:40 Patient unable to answer at this time (ie. confused, unrespo /Reproduction History /Reproductive History - account support analyst: /Reproductive Hx- account support analyst Hx Now No 05/25/25 21:37 Gestational Age [...] 60 Click Tube TOPICAL Not Given BID [facility] Protocol Ferrous Sulfate 325 mg 05/23/25 12:00 [...] mls @ 15 mls/hr 05/22/25 14:40 IV .H08S55H PRN Saline Flush Sodium Chloride 250 mls @ 15 mls/hr 05/22/25 14:40 IV .U05Y56Z PRN Additional IVPB Infusion Sodium Chloride 250 mls @ 15 mls/hr 05/25/25 14:26 IV .M21Y78Y PRN Saline Flush Sodium Chloride 250 mls @ 15 mls/hr 05/25/25 14:26 IV .N28X17Y PRN Additional IVPB Infusion Insulin Human Lispro [...] edema History of echocardiogram Fall 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 Wilberto Suazo, DO; Dr. Rishi Vasquez, DO~ Signed [facility] Work Phone: 1(851) 263-296007-07-2025 Progress note Author Maddie Merchant [facility] Note Date/Time May 25, 2025 1:41p m [facility] Medical Records Department [address] [place] [address] Progress Note - Hospitalist 05/25/25 0715 MR#: [id number] Acct: [id number] Name: GELY FULLER Rep #:[id number] : 1950 75 From: Maddie Merchant MD PCP: Dr. Rishi Vasquez, DO Status:AD M IN Location: [address] Reason for Visit Reason for Visit: Diagnoses [...] 3 and cooperative, seated upright in the Medr bed, fatigued, notes only complaint of left [...] Code status. Charges/Coding Visit Charges Inpatient E&M: 67804 Subs Hosp L3 05/25/25 1341 <Electronically signed by Maddie Merchant MD> Cosigner Signature (if applicable): CC: ~ Signed [facility] Work Phone: 1(854) 798-555607-06-2025 Consult note Author Patel Irene [facility] Note Date/Time May 24, 2025 11:28 am [facility] Medical Records Department [address] [place] [address] Consultation 05/24/25 1003 MR#: [id number] Acct: [id number] Name: GELY FULLER Rep #:[id number] : 1950 75 From: Patel Abraham PM PCP: Dr. Rishi Vasquez, DO Status:JANUARY ALLAN Location: MS3 DV702-2 Assessment & Plan Assessment/Plan (1) Non-pressure chronic [...] B complaints at this time. 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 Rishi Vasquez DO~ Signed [facility] Work Phone: 1(182) 371-565107-06-2025 Progress note Author Michaela Joshua [facility] Note Date/Time May 24, 2025 10:20 am [facility] Medical Records Department [address] [place] [address] Progress Note - Hospitalist 05/24/25 0711 MR#: [id number] Acct: [id number] Name: GELY FULLER Rep #:[id number] : 1950 75 From: Michaela Joshua DO PCP: Dr. Rishi Vasquez DO Status:AD M [place] Location: MS3 CX638-5 Reason for Visit Reason for Visit: Weakness/Falls [...] patient's insistence on not being admitted to fpc facility other than transitional care unit which unfortunately had no bed availability. Case management is involved and will work on finding facility. Patient does need pre-CERT and may not be able to be discharged before her surgery next Sunday Charges/Coding Visit Charges Inpatient E&M: 76005 Subs Hosp L2 05/24/25 1020 <Electronically signed by Michaela Joshua DO> Cosigner Signature (if applicable): CC: ~ Signed [facility] Work Phone: 1(436) 129-844007-06-2025 [facility]07-05-2025 Progress note Author Michaela Joshua [facility] Note Date/Time May 23, 2025 12:11 pm [facility] Medical Records Department [address] [place] [address] Progress Note - Hospitalist 05/23/25 0758 MR#: [id number] Acct: [id number] Name: GELY FULLER Rep #:[id number] : 1950 75 From: Michaela Joshua DO PCP: Dr. Rishi Vasquez, Status:AD M [place] Location: MS3 PY233-3 Reason for Visit Reason for Visit: Fall [...] 78.4 H, Lymph % (Auto) 9.1 L, Antelope % (Auto) 9.0, Eos % (Auto) 1.5, [...] patient's insistence on not being admitted to fpc facility other than transitional care unit which unfortunately had no bed availability. Case management is involved and will work on finding facility. Patient does need pre-CERT and may not be able to be discharged before her surgery next Sunday Charges/Coding Visit Charges Inpatient E&M: 79432 Subs Hosp L2 05/23/25 1211 <Electronically signed by Michaela Joshua DO> Cosigner Signature (if applicable): CC: ~ Signed [facility] Work Phone: 1(374) 343-351907-04-2025 History and physical note Author Wilberto Suazo [facility] Note Date/Time May 22, 2025 4:31p m [facility] Medical Records Department [address] [place] [address] H&P Exam - Hospitalist 05/22/25 1329 MR#: [id number] Acct: [id number] Name: GELY FULLER Rep #:[id number] : 1950 75 From: Wilberto mosley DO PCP: Dr. Rishi Vasquez, DO Status:AD M [place] Location: [place]3 YY593-7 HPI - General General Date of Admission: 05/22/25 Date of Service: 05/22/25 Chief Complaint: Generalized weakness HPI Narrative GELY FULLER, is a 75 F who presented to [facility] ED on 05/22/2025 with generalized [...] [facility] and [facility] [...] be admitted for further management. 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 1. Acute on chronic debility ? Admit under observation status to [facility]. PT/OT/case management consulted. Patient with borderline therapy [...] 75 minutes. Charges/Coding Visit Charges Inpatient E&M: 18591 Init Hosp L3 05/22/25 1631 <Electronically signed by Wilberto Suazo DO> Cosigner Signature (if applicable): CC: Dr. Wilberto Suazo, ; Dr. Rishi Vasquez DO~ Signed [facility] Work Phone: 1(744) 171-527407-04-2025 Discharge summary Author Heron Wilde [facility] Note Date/Time May 22, 2025 1:36p m [facility] Medical Records Department [address] [place] [address] Emergency Department Summary 05/22/25 MR#: [id number] Acct: [id number] Name: GELY FULLER Rep #:[id number] : 1950 75 From: Heron Wilde DO [...] states that she does feel overall tired. 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 [...] stage 3 Atherosclerosis of coronary artery of [place] heart without angina pectoris Hyperlipidemia Peripheral vascular [...] Patient 5 commands that she was at [facility] year is 2024 sensation grossly intact Skin: Warm, dry, intact no rashes or lesions noted Const Vital Signs: 05/22/25 11:05/22/25 11:42 Temperature 98 F Temperature Source Temporal [...] 78.4 H Lymph % (Auto) 9.1 L Antelope % (Auto) 9.0 Eos % (Auto) 1.5 [...] DO [Primary Care Provider] - Print Language: Romanian Disposition Disposition: Acute Care Hospital [facility] What to do if you have Problems For any increased pain, shortness of breath, bleeding, nausea or vomiting, chestpain, or any unexpected problems, contact your Primary Care Provider. Call [facility] ([phone]) or report to the closest Emergency Room. Call 911 if necessary. 05/22/25 1336 <Electronically signed by Heron Wilde DO> Cosigner Signature (if applicable): CC: Dr. Rishi Vasquez DO ~ Signed [facility] Work Phone: 1(289) 308-322507-04-2025 Discharge summary Author Heron Wilde [facility] Note Date/Time May 22, 2025 1:36p m [facility] Medical Records Department [address] [place] [address] Emergency Department Summary 05/22/25 MR#: [id number] Acct: [id number] Name: GELY FULLER Rep #:[id number] : 1950 75 From: Heron Wilde DO [...] states that she does feel overall tired. 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 [...] stage 3 Atherosclerosis of coronary artery of [place] heart without angina pectoris Hyperlipidemia Peripheral vascular [...] Patient 5 commands that she was at [facility] year is 2024 sensation grossly intact [...] 78.4 H Lymph % (Auto) 9.1 L Antelope % (Auto) 9.0 Eos % (Auto) 1.5 [...] DO [Primary Care Provider] - Print Language: Romanian Disposition Disposition: Acute Care Hospital [facility] What to do if you have Problems For any increased pain, shortness of breath, bleeding, nausea or vomiting, chestpain, or any unexpected problems, contact your Primary Care Provider. Call [facility] ([phone]) or report to the closest Emergency Room. Call 911 if necessary. 05/22/25 1336 <Electronically signed by Heron Wilde DO> Cosigner Signature (if applicable): CC: Dr. Rishi Vasquez DO ~ Signed [facility] Work Phone: 1([phone]) 116-933807-03-2025 [facility]07-02-2025 Consult note Author Zachary [facility] Note Date/Time May 20, 2025 9:19p m [facility] Medical Records Department [address] [place] [address] Anesthesia Postop Eval II 05/20/252117 MR#: [id number] Acct: [id number] Name: GELY FULLER Rep #:[id number] : 1950 75 From: Zachary Rodriguez MD PCP: Dr. Rishi Vasquez DO Status:AD M IN Y Race: C [place] [facility] -1 Anesthesia Postop Eval I Sum Postop Eval Completion status Anesthesia document: Postop Eval 1 completed: Yes Anesthesia Postop Eval I Summary Anesthesia Postop Eval I Summary: Anesthesia Postop Eval I: Assessment Summary Airway patent Yes 05/20/25 16:57 RETAIL DEPARTMENT SUPERVISOR.ACAR Spontaneous unlabored Yes 05/20/25 16:57 RETAIL DEPARTMENT SUPERVISOR.ACAR respirations Mental status Awake,Calm 05/20/25 16:57 RETAIL DEPARTMENT SUPERVISOR.ACAR nausea No 05/20/25 16:57 RETAIL DEPARTMENT SUPERVISOR.ACAR Vomiting No 05/20/25 16:57 RETAIL DEPARTMENT SUPERVISOR.ACAR Anesthesia Postop Eval I: Fluid Summary Crystalloid volume administer 200 05/20/25 16:57 RETAIL DEPARTMENT SUPERVISOR.ACAR (ml) Colloids volume administered ( ml) Blood Product volume administered (ml) Total IV fluid infused 200 05/20/25 16:57 RETAIL DEPARTMENT SUPERVISOR.ACAR Anesthesia Postop Eval I: Summary Notes Anesthesia Complication No 05/20/25 16:57 RETAIL DEPARTMENT SUPERVISOR.ACAR Anesthesia Complication Comment: Post-operative progress note Anesthesia: Postop Eval II Evaluation Mental status: Awake and Calm Pain Level: 1 nausea: No Vomiting: No Complications Anesthesia Complication: No 05/20/252118 <Electronically signed by Zachary mcguire MD> Date _ Zachary Rodriguez MD Cosigner Signature: Date CC: ~ Signed [facility] Work Phone: 1(495) 523-385507-02-2025 Consult note Author Jwsharan Victoria [facility] Note Date/Time May 20, 2025 4:57p m [facility] Medical Records Department [address] [place] [address] Anesthesia Postop Eval I 05/20/25 1657 MR#: [id number] Acct: [id number] Name: GELY FULLER Rep #:[id number] : 1950 75 From: Jw iqbal RETAIL DEPARTMENT SUPERVISOR PCP: Dr. Rishi Vasquez, DO Status:AD M IN Y Race: C Location: [place] [address] Anesthesia: Postop Eval I Current Vital Signs [...] completed: Yes 05/20/251656 <Electronically signed by Jw victoriaani GORDON> Date _ Jw Victoria RETAIL DEPARTMENT SUPERVISOR Cosigner Signature: Date CC: ~ Signed [facility] Work Phone: 1(192) 883-396807-02-2025 Progress note Author Michaela Joshua [facility] Note Date/Time May 20, 2025 4:41p m [facility] Medical Records Department [address] [place] [address] Progress Note - Hospitalist 05/20/2533 MR#: [id number] Acct: [id number] Name: GELY FULLER Rep #:[id number] : 1950 75 From: Michaela Joshua DO PCP: Dr. Rishi Vasquez, DO Status:AD M IN Location: MS3 KA213-6 Reason for Visit Reason for Visit: Generalized [...] on admission Charges/Coding Visit Charges Inpatient E&M: 35532 Subs Hosp L2 05/20/25 1641 <Electronically signed by Michaela Joshua DO> Cosigner Signature (if applicable): CC: ~ Signed [facility] Work Phone: 1(124) 870-509307-02-2025 Consult note Author Zachary Rodriguez [facility] Note Date/Time May 20, 2025 3:37p m [facility] Medical Records Department [address] [place] [address] Pre-Anesthesia Evaluation 05/20/25 1526 MR#: [id number] Acct: [id number] Name: GELY FULLER Rep #:[id number] : 1950 75 From: Zachary Rodriguez MD PCP: Dr. Rishi Vasquez, Status:AD M IN Y Race: C [place] [facility] [place] -1 ASA Classification* ASA Classification ASA [...] COAG PT 15.5 SECONDS (11.7-14.9) H 05/18/25 05:04/21 Pre-Assessment Diagnosis/Proposed Procedure Planned Operative Procedure(s): Surgical skin graft site With application of a skin graft substitute, Bilateral lower extremity incision of bone cortex, left ankle. Anesthesia History Anesthesia History - account support analyst: Anesthesia History - account support analyst Hx Hospitalization Yes: 02/2025 FELL 05/08/25 10:01 [...] take am of surgery PONV PONV - account support analyst: PONV - account support analyst Female HX of Motion Sickness HX of N/V After Surgery Non-Smoker Duration of Surgery greater than 60 minutes Number of Risk Factors PONV Score Height & Weight Height & Weight: Anesthesia: Height & Weight Height 5 ft 6 in 05/20/25 12:58 Weight: 73.2 kg 05/20/25 12:58 Body Mass Index (BMI) 26.0 05/20/25 12:58 Respiratory Assessment Respiratory Assessment - account support analyst: Respiratory Tract Infection Hx - account support analyst Hx Respiratory Tract Infection No 05/20/25 08:47 STOP Sleep Apnea STOP Sleep Apnea - account support analyst: STOP Sleep Apnea - account support analyst Hx Hypertension Yes 05/18/25 11:21 Hx Sleep [...] 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 Use History - account support analyst: Tobacco Use History - account support analyst Tobacco Use Cigarettes 04/02/24 09:13 Smoking Status Former smoker 05/18/25 02:15 Hx Tobacco Use No 05/18/25 02:15 Years Smoking Packs Smoked per Day Smoking Cessation Date was Yes - quit smoking within 15 05/18/25 02:15 within the last 15 years years Hx Smoking Cessation Date 01/01/13 05/18/25 02:15 Hx Smoking Cessation No 05/18/25 02:15 Counseling Hematologic Medial History Hematologic Hx - account support analyst: Hematologic 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 81 Mg Tablet PO 81 mg QHS [place] Administration Atorvastatin Calcium 10 mg 05/19/25 22:00 05/19/25 21:07 Atorvastatin Calcium 10 Mg Tablet PO 10 mg QHS [facility] Administration Clopidogrel Bisulfate 75 mg 05/18/25 10:00 05/20/25 11:23 Clopidogrel Bisulfate 75 Mg Tablet PO Not Given DAILY [facility] Collagenase 1 applic 05/18/25 10:00 05/20/25 08:44 Collagenase 30gm Tube TOPICAL Not Given DAILY [facility] Protocol Ferrous Sulfate 325 mg 05/18/25 12:00 05/20/25 11:44 Ferrous Sulfate 325 Mg Tablet PO Not Given DAILY@1200 [facility] Glucagon 1 mg 05/18/25 03:19 Glucagon 1 [...] 100 Unit/Ml Insuln.Pen SC Not Given ACHS [facility] Protocol L-Arginine/L-Glutamine/Calcium HMB 1 packet 05/18/25 17:00 05/20/25 06:39 Davion (Unflavored) Packet PO Not Given BIDCM [facility] Linezolid 600 mg 05/18/25 22:00 05/20/25 11:23 Linezolid 600 Mg Tablet PO Not Given BID [facility] Melatonin 3 mg 05/18/25 03:19 Melatonin 3 Mg Tablet PO QHS PRN PRN INSOMNIA Metaxalone 400 mg 05/20/25 13:59 Metaxalone 800 Mg Tablet PO TID PRN MUSCLE SPASM Metoprolol Succinate 12.5 mg 05/19/25 13:00 05/20/25 09:39 Metoprolol(Xl)Succ 25 Mg Tablet PO Not Given DAILY [facility] Protocol Ondansetron HCl 4 mg 05/18/25 03:19 Ondansetron 4 Mg/2 Ml Vial IV Q8H PRN PRN NAUSEA/VOMITING Pregabalin 100 mg 05/19/25 15:30 05/20/25 13:40 Pregabalin 50 Mg Capsule PO Not Given TID [facility] Prochlorperazine Edisylate 5 mg 05/18/25 03:19 Prochlorperazine 10 Mg/2 Ml Vial IV Q4H PRN PRN Breakthrough nausea/vomiting Senna/Docusate Sodium 2 tablet 05/18/25 03:19 Senna/Docusate Sodium 1 Tablet PO BID PRN PRN Constipation Sodium Chloride 10 - 40 ml 05/18/25 03:04 05/19/25 06:14 0.9% Saline Lock 10 Ml Syringe IV 10 ml UD PRN Administration SALINE FLUSH PFS Medical History Other specified peripheral vascular diseases History of MRSA infection Pressure ulcer Ambulates with cane Shortness of breath on exertion History of edema History of echocardiogram Fall 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 05/20/25 3117 <Electronically signed by Zachary mcguire MD> Date _ [facility] Date CC: ~ Signed [facility] Work Phone: 1(239) 358-144007-02-[address] [facility] 05-20-2025 Progress note Author Jason Polk [facility] Note Date/Time May 20, 2025 12:06 pm [facility] Medical Records Department [address] [place] [address] Progress Note - Infect Disease 05/20/25 1204 MR#: [id number] Acct: [id number] Name: GELY FULLER Rep #:[id number] : 1950 75 From: Jason Polk MD PCP: Dr. Rishi Vasquez, DO Status:AD M IN [place] [facility] [place]025-7 ID ID: Route of nutrition/ use of [...] skin flap. 05/20/25 1206 <Electronically signed by aJson Polk MD> Cosigner Signature (if applicable): CC: ~ Signed [facility] Work Phone: 1(964) 672-896407-02-2025 Progress note Author Patel Irene [facility] Note Date/Time May 20, 2025 7:53a m [facility] Medical Records Department [address] [place] [address] Progress Note - Surgery 05/20/25 0746 MR#: [id number] Acct: [id number] Name: GELY FULLER Rep #:[id number] : 1950 75 From: Patel Abraham PM PCP: Dr. Rishi Vasquez, DO Status:AD M IN [place] [facility] [place] JV217-8 Subjective Subjective Ms. Fuller is a 75-year-old [...] 2 diabetes mellitus with foot ulcer: 05/20/25 8583 <Electronically signed by Patel Irene DPM> Cosigner Signature (if applicable): CC: ~ Signed [facility] Work Phone: 1(269) 152-379807-01-2025 Progress note Author Jason Polk [facility] Note Date/Time May 19, 2025 2:07p m [facility] Medical Records Department [address] [place] [address] Progress Note - Infect Disease 05/19/251405 MR#: [id number] Acct: [id number] Name: GELY FULLER Rep #:[id number] : 1950 75 From: Jason Polk MD [...] Cosigner Signature (if applicable): CC: ~ Signed [facility] Work Phone: 1(337) 119-569207-01-2025 Progress note Author Michaela Joshua [facility] Note Date/Time May 19, 2025 12:55 pm [facility] Medical Records Department [address] [place] [address] Progress Note - Hospitalist 05/19/25 1246 MR#: [id number] Acct: [id number] Name: GELY FULLER Rep #:[id number] : 1950 75 From: Michaela Joshua DO [...] 73.3 H, Lymph % (Auto) 13.7 L, Antelope % (Auto) 10.4 H, Eos % (Auto) [...] or other follow up imaging. Reading Location: [place] [address] Physical Exam Const alert, oriented x3 and [...] on admission Charges/Coding Visit Charges Inpatient E&M: 49985 Subs Hosp L2 05/19/25 6425 <Electronically signed by Michaela Joshua DO> Cosigner Signature (if applicable): CC: ~ Signed [facility] Work Phone: 1(167) 978-353107-01-2025 Progress note Author Jacinto Tamez [facility] Note Date/Time May 19, 2025 8:28a m [facility] Medical Records Department [address] [place] [address] Progress Note - Community Arts Worker 05/19/25 0637 MR#: [id number] Acct: [id number] Name: GELY FULLER Rep #:[id number] : 1950 75 From: Jacinto Tamez DO [...] noted above. This note was generated with Appvance dictation software. It may contain incorrectwords, spelling, [...] 73.3 H, Lymph % (Auto) 13.7 L, Antelope % (Auto) 10.4 H, Eos % (Auto) [...] with CT. Degenerative bony changes Reading Location: [id number] Chest CTA 05/18/25 07:26 IMPRESSION: There is [...] or other follow up imaging. Reading Location: [place] [address] Physical Exam Const alert, oriented x3 and [...] affect normal Charges/Coding Visit Charges Inpatient E&M: 04814 Subs Hosp L2 05/19/25 0828 <Electronically signed by Jacinto Tamez DO> Cosigner Signature (if applicable): CC: ~ Signed [facility] Work Phone: 1(657) 410-966107-01-2025 Consult note Author Patel Irene [facility] Note Date/Time May 19, 2025 7:01a m [facility] Medical Records Department [address] [place] [address] Consultation 05/18/25 0659 MR#: [id number] Acct: [id number] Name: GELY FULLER Rep #:[id number] : 1950 75 From: Patel Irene D PM PCP: Dr. Rishi Vasquez, DO Status:AD [...] extremity full-thickness wound infection HPI Narrative: GELY FULLER, is a 75 F w/ PMHx: [...] by vascular surgery. She presented to the [facility] ED on 05/18/2025 with generalized [...] pedal complaints at this time. [facility] Medical History (Updated 05/18/25 @ 16:[address] 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 Soft tissue swelling, without obvious soft tissue gas. Possible cellulitis. Reading Location: [facility] 05/19/25 0701 <Electronically signed by Patel Irene DPM> Cosigner Signature (if applicable): CC: Dr. Rishi Vasquez, DO; Dr. Jerri Castillo DO~ Signed [facility] Work Phone: 1(345) 277-286306-30-2025 Progress note Author Michaela Joshua [facility] Note Date/Time May 18, 2025 4:24 pm [facility] Medical Records Department [address] [place] [address] Progress Note - Hospitalist 05/18/2514 MR#: [id number] Acct: [id number] Name: GELY FULLER Rep #:[id number] : 1950 75 From: Michaela Joshua DO [...] 80.8 H, Lymph % (Auto) 7.4 L, Antelope % (Auto) 10.6 H, Eos % (Auto) [...] Clarity Cloudy, Urine pH 5.0, Ur Specific Exmore 1.020, Urine Protein 100 H, Urine Glucose [...] 76.2 H, Lymph % (Auto) 8.1 L, Antelope % (Auto) 14.6 H, Eos % (Auto) [...] IMPRESSION: No acute chest findings. 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 Soft tissue swelling, without obvious soft tissue gas. Possible cellulitis. Reading Location: [place] [address] Assessment & Plan Assessment/Plan (1) Non-pressure chronic [...] has a bicarb lower than 20, developed HSAYY - Did not meet sepsis criteria at [...] Cosigner Signature (if applicable): CC: ~ Signed [facility] Work Phone: 1(253) 168-894106-30-2025 Consult note Author Russell Clement [facility] Note Date/Time May 18, 2025 1:07 pm [facility] Medical Records Department [address] [place] [address] Consultation - Surgical 05/18/25 1257 MR#: [id number] Acct: [id number] Name: GELY FULLER Rep #:[id number] : 1950 75 From: Russell Clement MD PCP: Dr. Rishi Vasquez DO Status:AD M IN Location: ICU CVICU20 1-[address] Russell Clement MD on 05/18/25 at 1307 Visit Charges Inpatient E&M: 47660 Init Hosp L3 05/18/25 1307<Electronically signed by Russell Clement MD> Cosigner Signature (if applicable): cc: Dr. Rishi Vasquez DO; Dr. 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 [facility] Medical History (Updated 05/18/25 @ 13:[address] 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 Soft tissue swelling, without obvious soft tissue gas. Possible cellulitis. [facility] Ab[facility]/Pelvis CT 05/18/25 07:26 IMPRESSION: Cholelithiasis, no [...] with CT. Degenerative bony changes Reading Location: [id number] Chest CTA 05/18/25 07:26 IMPRESSION: There is a 0.5 cm solid nodule in the right mid lung, image 131/244. There is a 0.4 cm solid nodule in the right mid lung, image 115/244. Follow-up is recommended. There is atelectasis with a trace effusion at the left lung base. There is no visible pulmonary embolus. Reading Location: [facility] 05/18/25 1306 <Electronically signed by Russell Clement MD> Cosigner Signature (if applicable): CC: Dr. Rishi Vasquez, DO; Dr. Jerri Castillo, DO~ Signed [facility] Work Phone: 1(910) 939-560206-30-[address] [facility]06-30-2025 Consult note Author Jacinto Tamez [facility] Note Date/Time May 18, 2025 12:3 4pm [facility] Medical Records Department [address] [place] [address] Consultation - Community Arts Worker 05/18/25 0827 MR#: [id number] Acct: [id number] Name: GELY FULLER Rep #:[id number] : 1950 75 From: Jacinto Tamez DO [...] noted above. This note was generated with Fastration software. It may contain incorrectwords, spelling, and [...] patient has never been evaluated by a environmental compliance engineer, nor has she ever been formally diagnosed [...] her transfer to the ICU. [facility] Medical History (Updated 06/30/25 @ 07:[address] 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 Reading Location: 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 Soft tissue swelling, without obvious soft tissue gas. Possible cellulitis. Reading Location: [facility] Sepsis Attestation Sepsis Alert: Yes Sepsis Attestation: [...] responsive hypotension Charges/Coding Visit Charges Inpatient E&M: 03979 Init Hosp L3 05/18/25 1234 <Electronically signed by Jacinto Tamez DO> Cosigner Signature (if applicable): CC: Dr. Rishi Vasquez DO; Dr. Jerri Castillo DO~ Signed [facility] Work Phone: 1(461) 101-261606-30-2025 Consult note Author Jason Polk [facility] Note Date/Time May 18, 2025 12:3 3pm [facility] Medical Records Department [address] [place] [address] Consultation - Infectious Dx 05/18/25 1227 MR#: [id number] Acct: [id number] Name: GELY FULLER Rep #:[id number] : 1950 75 From: Jason Polk MD [...] reviewed. Denies any gastrointestinal distress. [facility] Medical History (Updated 05/18/25 @ 07:[address] 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 Soft tissue swelling, without obvious soft tissue gas. Possible cellulitis. Reading Location: [facility]-2 Abdomen/Pelvis CT 05/18/25 07:26 IMPRESSION: Cholelithiasis, no [...] with CT. Degenerative bony changes Reading Location: [id number] Chest CTA 05/18/25 07:26 IMPRESSION: There is [...] Vasquez DO; Dr. Jerri Castillo DO~ Signed [facility] Work Phone: 1(223) 728-753206-30-[address] [facility]06-30-[address] [facility]06-30-2025 Discharge summary Author Jerri Castillo [facility] Note Date/Time May 18, 2025 7:01 am [facility] Medical Records Department [address] [place] [address] Emergency Department Summary 05/17/25 MR#: [id number] Acct: [id number] Name: GELY FULLER Rep #:[id number] : 1950 75 From: Jerri Castillo DO PCP: Dr. Rishi Vasquez DO Status:AD M IN [place] [facility] [id number] [facility] History of Present Illness Chief Complaint: Fall [...] she was started on antibiotics by her rotational moulding operator Dr. Irene. Patient unsure the name of the antibiotic. 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 Soft tissue swelling, without obvious soft tissue gas. Possible cellulitis. Reading Location: [place] [address] Discharge Plan Triage Chief Complaint: Fall ED [...] DO [Primary Care Provider] - Print Language: Romanian Disposition Disposition: Acute Care Hospital [facility] What to do if you have Problems For any increased pain, shortness of breath, bleeding, nausea or vomiting, chestpain, or any unexpected problems, contact your Primary Care Provider. Call [facility] ([phone]) or report to the closest Emergency Room. Call 911 if necessary. 05/18/25 0701 <Electronically signed by Jerri Castillo DO> Cosigner Signature (if applicable): CC: Dr. Rishi Vasquez DO ~ Signed [facility] Work Phone: 1(420) 547-737206-30-2025 [facility]06-30-2025 Consult note Author Rick Barth [facility] Note Date/Time May 18, 2025 3:45 am [facility] Medical Records Department [address] [place] [address] Pharmacokinetic/Renal -Consult 05/18/25 0344 MR#: [id number] Acct: [id number] Name: JONNYGELY L Rep #:[id number] : 1950 75 From: Rick Anders od PCP: Dr. Rishi Vasquez, DO Status:AD M IN Y [place] [facility] [id number] Consult Antibiotic Management Pharmacy has been consulted [...] Signature (if applicable): Date CC: ~ Signed [facility] Work Phone: 1(723) 303-899306-30-2025 History and physical note Author Maddie Merchant [facility] Note Date/Time May 18, 2025 2:32 am [facility] Medical Records Department [address] [place] [address] H&P Exam - Hospitalist 05/18/25 0201 MR#: [id number] Acct: [id number] Name: GELY FULLER Rep #:[id number] : 1950 75 From: Maddie Merchant MD PCP: Dr. Rishi Vasquez, DO Status:AD M IN Location: [facility] [id number] HPI - General General Date of Admission: [...] has been rubbing who presents to the [facility] ED on 05/18/2025 with generalized [...] possibly cellulitis with postoperative changes. 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 Soft tissue swelling, without obvious soft tissue gas. Possible cellulitis. Reading Location: [facility]-2 Assessment & Plan Assessment/Plan (1) Acute UTI: [...] has been rubbing who presents to the [facility] ED on 05/18/2025 with generalized [...] 16 minutes. Charges/Coding Visit Charges Inpatient E&M: 33408 Init Hosp L3 Procedures Hospitalists Procedures: 00365 Advncd Care Plan 30 Min 05/18/25 0232 <Electronically signed by Maddie Merchant MD> Cosigner Signature (if applicable): CC: Dr. Maddie Merchant MD; Dr. Rishi Vasquez DO~ Signed [facility] Work Phone: 1(101) 523-588706-29-[address] [facility]06-29-[address] [facility]06-19-2025 Telephone encounter Note* Telephone Encounter - Lebron Jacome RN - 05/07/2025 1:07 PM EDT Pt phoned back and states she was able to get 5 days of glipizide from pharmacy. Pt asking pcp to change the medication since her insurance does not cover it. [facility]06-19-2025 Miscellaneous Notes* Telephone Encounter - Lebron Jacome [...] this plan. Prior Authorization not available. Payer: [employer] [phone] Note from payer: This drug/product is not covered under the pharmacy benefit. Prior Authorization is not available. * Telephone Encounter - Any Rodriguez LPN - 05/06/2025 1:17 PM EDT Electronic PA requested. * Telephone Encounter - Sara Solis RN - 05/06/2025 12:25 PM EDT Pt called in and reports she went in to [facility] and they told her that [...] Artis NP Insurance Company Name: [employer] ION Signature Phone number:[phone] Patient ID number: [id number] Pharmacy Name: [facility] Telephone number: [phone] documented in this encounterPark[facility]06-19-2025 Telephone encounter Note * Telephone Encounter - Sara Solis RN - 05/07/2025 11:28 AM EDT Called and left a detailed voicemail notifying patient of providers message. Clinic phone number was left for the patient to call back if she would like the provider to change her medication. Sara Solis RN [facility]06-18-2025 Telephone encounter Note* Telephone Encounter - Rishi Vasquez DO - 05/06/2025 8:20 PM EDT Agree with below Rishi Vasquez DO [facility]06-18-2025 Telephone encounter Note* Telephone Encounter - Any Rodriguez LPN - 05/06/2025 2:55 PM EDT Called pt and message left she can either ask the pharmacy to run the rx with a discount card or call back and ask the provider to change the medicine. [facility]06-18-2025 Telephone encounter Note* Telephone Encounter - Any Rodriguez LPN - 05/06/2025 1:20 PM EDT Images from the original note were not included. This is the PA response. Close reason: Product not covered by this plan. Prior Authorization not available. Payer: [employer] [phone] Note from payer: This drug/product is not covered under the pharmacy benefit. Prior Authorization is not available. [facility]06-18-2025 Telephone encounter Note* Telephone Encounter - Any Rodriguez LPN - 05/06/2025 1:17 PM EDT Electronic PA requested. [facility]06-18-2025 Telephone encounter Note* Telephone Encounter - Sara Solis RN - 05/06/2025 12:25 PM EDT Pt called in and reports she went in to [facility] and they told her that [...] Name: [employer] Company Phone number:[phone] Patient ID number: [id number] Pharmacy Name: [facility] Telephone number: [phone] [facility]06-12-2025 Instructions* Patient Instructions* Ld Artis APRN.CNP - 04/30/2025 11:41 AM EDT Send me a blood sugar log in 2 weeks after taking the 10mg of glucotrol xl (5mg twice per day) Follow up as already scheduled with Dr Vasquez documented in this encounterParkview Health06-12-2025 NoteHNO ID: [id number] Author: LD ARTIS APRN.CNP Service: ? Author [...] wound dressing changes - Recent visit to rotational moulding operator Dr. Irene, who discussed potential surgery [...] mellitus (HCC) Coronary artery disease Dr. 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 Ortiz [facility]-03/25/2020 left mild, right moderate Multiple thyroid nodules last US 01/2015 Peripheral artery disease due to Diabetes mellitus, Dr. Kwaku Moscoso Rotator cuff syndrome of left shoulder Dr. Regi Montes [facility] PAST SURGICAL HISTORY Procedure Laterality Date AMPUTATION [...] ROTATOR CUFF REPAIR 03/11/14 Dr. Regi Thompson [facility] SLCTV CATHJ EA 1ST ORD [...] Take 1 tablet by mouth once daily. Ekvtdrer-Yaqu-Qyu-Folic Acid 18-0.4 mg tab Take 1 tablet by mouth once daily. omega-3 fatty acids 1,000 mg cap Take 1 capsule by mouth once d (more content not included)...[facility]06-12-2025 History of Present illness Narrative* Ld Artis APRN.FOURDRINIER WIRE WEAVER - 04/30/2025 11:26 AM EDT HISTORY OF [...] wound dressing changes - Recent visit to rotational moulding operator Dr. Irene, who discussed potential surgery [...] mellitus (HCC) Coronary artery disease Dr. 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 Ortiz [facility]-03/25/2020 left mild, right moderate Multiple thyroid nodules last US 01/2015 Peripheral artery disease due to Diabetes mellitus, Dr. Kwaku Moscoso Rotator cuff syndrome of left shoulder Dr. Deluna [facility] PAST SURGICAL HISTORY Procedure Laterality Date AMPUTATION [...] CUFF REPA[facility] PEL/LXTR ART [facility] 06-07-16 APLL ALLERGIES Sulfa (Sulfonamide Antibiotics) MEDICATIONS [...] Take 1 tablet by mouth once daily. Avugxjve-Zpsf-For-Folic Acid 18-0.4 mg tab Take 1 tablet [...] as needed for worsening/no improvement. Ld Artis APRN.FOURDRINIER WIRE WEAVER Recording using cube19 software for draft documentation of the visit was discussed with the patient/authorized food service sales representatives; all questions welcomed and answered. Patient/authorized food service sales representatives agreed to proceed documented in this encounterParkview Health06-09-2025 Radiology Diagnostic study note [facility] Imaging Services [address] [place] [address] [id number] Thyroid MR#: [id number] Acct: [id number] Name: GELY FULLER Rep #: [id number] : 1950 F 75 From: Courtney Bright MD PCP: Dr. Rishi Vasquez, DO Status: RE G CLI Study:Thyroid Date of Exam: 04/27/25 Exam# [id number] Ordering Dr: Alla Renee MD PROCEDURE: THYROID, [...] Paper of the ACR TI-RADS Committee, 2017 ([email or web address]) Reading Location: [id number] CC: Dr. Rishi Vasquez DO; Dr. Ciaran Renee MD ~ Workforce Investment Act Career Manager: Signed [facility]05-29-2025 Telephone encounter Note* Telephone Encounter - Hina Man RN - 04/16/2025 9:31 AM EDT Jessika calling from [facility] to report plan of care for patient and fpc will continue visit patient 1 time a week for 5 weeks. USP will work with patient on wound care to bilateral lower extremities. Patient is being follow by Dr. Irene for wound care. No call back needed. Hina Man RN [facility]05-29-2025 Miscellaneous Notes* Telephone Encounter - Hina Man RN - 04/16/2025 9:31 AM EDT Jessika calling from [facility] to report plan of care for patient and fpc will continue visit patient 1 time a week for 5 weeks. USP will work with patient on wound care to bilateral lower extremities. Patient is being follow by Dr. Irene for wound care. No call back needed. Hina Man RN documented in this encounterParkview Health05-20-2025 Telephone encounter Note * Telephone Encounter - [...] vomiting Protocols used: Diabetes - High Blood Btwhz-KHZWZ-MF [facility]05-20-2025 Miscellaneous Notes* Telephone Encounter - Clemencia Chapman [...] vomiting Protocols used: Diabetes - High Blood Nywmx-CQRYT-AN documented in this encounterParkview Health05-09-2025 Instructions* Patient Instructions* PodYumiko bazzi APRN.[facility] - 03/27/2025 10:36 AM EDT WHAT YOU [...] review all the medicines you take, even wrth-yxp-gychbpb medicines. As you get older, the way [...] have certain medical conditions. documented in this encounterParkview Health05-09-2025 History of Present illness Narrative* Yumiko Whitehead APRN.CNP - 03/27/2025 10:00 AM EDT 03/26/2025 Patient presents with: ER F/U: [facility] ED -03/20/25 Multiple falls, gangrene SADIE feet SUBJECTIVE: This is a 75 year old that is here today for Above Complaints. HOSPITAL/ER FOLLOW UP: Reason for visit: Recurrent falls, Which facility: [facility] transferred to [facility] Date of visit: 03/07/2025-03/11/2025 [facility] then to TCU 03/11/2025-03/19/2025 Diagnosis: UTI, [...] mellitus (HCC) Coronary artery disease Dr. 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 Ortiz [facility]-03/25/2020 left mild, right moderate Multiple thyroid nodules last US 01/2015 Peripheral artery disease (HCC) due to Diabetes mellitus, Dr. Kwaku Moscoso Rotator cuff syndrome of left shoulder Dr. Deluna [facility] ALLERGIES Sulfa (Sulfonamide Antibiotics) MEDICATIONS Current Outpatient [...] Take 1 tablet by mouth once daily. Skehrjme-Zsgb-Rhj-Folic Acid 18-0.4 mg tab Take 1 tablet [...] - WALKER FOLDING WHEELED W/O S Yumiko Podlogar, SUPERVISOR AGRICULTURAL EDUCATION.FOURDRINIER WIRE WEAVER Prescription instructions reviewed with patient as applicable. [...] which included preparing to see the patient, uoyl-ej-hbbx patient care, completing clinical documentation, obtaining and/or reviewing separately obtained history, performing a medically appropriate examination, counseling and educating the pat ient/family/caregiver, and ordering medications, tests, or procedures. documented in this encounterParkview Health05-09-2025 NoteHNO ID: [id number] Author: YUMIKO WHITEHEAD APRN.CNP Service: ? Author Type: Nurse Practitioner Type: Progress Notes Filed: 03/27/2025 11:01 Note Text: 03/26/2025 Patient presents with: ER F/U: [facility] ED -03/20/25 Multiple falls, gangrene SADIE feet SUBJECTIVE: This is a 75 year old that is here today for Above Complaints. HOSPITAL/ER FOLLOW UP: Reason for visit: Recurrent falls, Which facility: [facility] transferred to [facility] Date of visit: 03/07/2025-03/11/2025 [facility] then to TCU 03/11/2025-03/19/2025 Diagnosis: UTI, [...] mellitus (HCC) Coronary artery disease Dr. 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 Ortiz [facility]-03/25/2020 left mild, right moderate Multiple thyroid nodules last 01/2015 Peripheral artery disease (HCC) due to Diabetes mellitus, Dr. Kwaku Moscoso Rotator cuff syndrome of left shoulder Dr. Deluna [facility] ALLERGIES Sulfa (Sulfonamide Antibiotics) MEDICATIONS Current Outpatient [...] Take 1 tablet by mouth once daily. Osrlnung-Btwl-Mkk-Folic Acid 18-0.4 mg tab Take 1 tablet [...] 03/27/2026 Colorectal Cancer Screen (more content not included)...[facility]05-08-2025 Telephone encounter Note* Telephone Encounter - Clary Andres APRN.CNP - 03/26/2025 1:30 PM EDT Agree. BP will be reassessed at appointment tomorrow. Let us know if not addressed at appointment tomorrow. Thank you, Clary Andres APRN.FOURDRINIER WIRE WEAVER [facility] Work Phone: 1(279) 596-935505-08-2025 Miscellaneous Notes* Telephone Encounter - Clary Andres APRN.CNP - 03/26/2025 1:30 PM EDT Agree. BP will be reassessed at appointment tomorrow. Let us know if not addressed at appointment tomorrow. Thank you, Clary Andres APRN.FOURDRINIER WIRE WEAVER * Telephone Encounter - Lebron Jacome RN - 03/26/2025 12:44 PM EDT [facility] HH- reporting updated POC: plans to [...] needed if pcp agrees. documented in this encounterParkview Health05-08-2025 Telephone encounter Note * Telephone Encounter - Lebron Jacome RN - 03/26/2025 12:44 PM EDT [facility] HH- reporting updated POC: plans to [...] No call back needed if pcp agrees. [facility]05-06-2025 Telephone encounter Note* Telephone Encounter - Rishi Vasquez DO - 03/24/2025 5:38 PM EDT Noted Rishi Vasquez DO [facility]05-06-2025 Miscellaneous Notes* Telephone Encounter - Rishi Vasquez DO - 03/24/2025 5:38 PM EDT Noted Rishi Vasquez DO * Telephone Encounter - Clemencia Chapman RN - 03/24/2025 3:00 PM EDT Ishaan PT calling from [facility] to report plan of care for patient and PT will visit patient 2 times a week for two weeks. PT will work with patient on functional mobility. No call back needed. Clemencia Chapman RN documented in this encounterParkview Health05-06-2025 Telephone encounter Note * Telephone Encounter - Clemencia Chapman RN - 03/24/2025 3:00 PM EDT Ishaan PT calling from [facility] to report plan of care for patient and PT will visit patient 2 times a week for two weeks. PT will work with patient on functional mobility. No call back needed. Clemencia Chapman RN [facility]05-06-2025 Telephone encounter Note* Telephone Encounter - Jesenia Mcgee PA-C - 03/24/2025 12:10 PM EDT Noted Jesenia Mcgee PA-C [facility] Work Phone: [phone]) 261-969505-06-2025 Miscellaneous Notes* Telephone Encounter - Jesenia Mcgee PA-C - 03/24/2025 12:10 PM EDT Noted Jesenia Bogner, PA-C * Telephone Encounter - Melly Pinon LPN - 03/23/2025 1:30 PM EDT Tatum with [facility] Nursing calls to report she saw pt today for start of care. Nursing will see pt once a week x 2 weeks then twice a week x 1 week, then once a week x 1. Nursingwill be doing wound care and teaching wound prevention and education. Melly Pinon LPN documented in this encounterParkview Health05-05-2025 Telephone encounter Note * Telephone Encounter - Melly Pinon LPN - 03/23/2025 1:30 PM EDT Tatum with [facility] Nursing calls to report she saw pt today for start of care. Nursing will see pt once a week x 2 weeks then twice a week x 1 week, then once a week x 1. Nursingwill be doing wound care and teaching wound prevention and education. Melly Pinon LPN [facility]05-05-2025 Telephone encounter Note* Telephone Encounter - Clemencia Chapman RN - 03/23/2025 8:29 AM EDT Call placed to Yvonne and notified of below. Clemencia Chapman RN [facility]05-05-2025 Miscellaneous Notes* Telephone Encounter - Clemencia Chapman RN - 03/23/2025 8:29 AM EDT Call placed to Yvonne and notified of below. Clemencia Chapman RN * Telephone Encounter - Rishi Vasquez DO - 03/20/2025 5:03 PM EDT Yes Rishi Vasquez DO * Telephone Encounter - Clemencia Chapman RN - 03/20/2025 12:53 PM EDT Yvonne with [facility] calls to ask if provider would be willing to follow their discharge orders for SN, PT, OT. Patient discharged home today from [facility] after having hospitalization and rehab for falls and UTI. Call back number is [phone]. Clemencia Chapman RN documented in this encounterParkview Health05-02-2025 Telephone encounter Note * Telephone Encounter - Rishi Vasquez DO - 03/20/2025 5:03 PM EDT Yes Rishi Vasquez DO [facility]05-02-2025 Telephone encounter Note* Telephone Encounter - Clemencia Chapman RN - 03/20/2025 12:53 PM EDT Yvonne with [facility] calls to ask if provider would be willing to follow their discharge orders for SN, PT, OT. Patient discharged home today from [facility] after having hospitalization and rehab for falls and UTI. Call back number is [phone]. Clemencia Chapman RN [facility]04-29-2025 [facility]04-29-2025 [facility]04-23-2025 Evaluation note* Diagnosis Onset Date Resolution Status Admit Date SHAYY (acute kidney injury) acute March 11, [...] chronic March 11, 2025 5:26pm Atherosclerosis of [place] ar riaz of both lower extremities with [...] 2025 9:17am Atherosclerosis of coronary artery of [place] heart without angina pectoris chronic May 07, [...] Generalized weakness deleted May 25, 2025 11:46am Anemia acute June 01 6:21pm C. 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 involvement without acute June 01, 2 025 6:21pm Non-pressure chronic ulcer o f [...] fat layer exposed chronic June 01 6:21pm Acute osteomyelitis of left ankle resolved June 01, 2025 6:21pm Acute painful diabetic polyneuropathy resolved June 01, 2025 6:21pm Bacteremia resolved June 01 6:21pm Cellulitis of left ankle resolved June 01, 2025 6:21pm Type 2 diabetes mellitus wit h foot ulcer inactive June 01, 2025 6:21pm Anemia acute June 05 5:14pm PAOD (peripheral arterial occlusive disease) acute June 09 9:26am Atherosclerosis of [place] arteries of right leg with ulceration of heel and acute June 302024 5:50am Peripheral vascular disease acute June 30, 2025 5:50am Right rotator cuff tear arthropathy acute July 10 9:02am Right shoulder pain acute Augus t 2024 9:02am [facility] Work Phone: 1(474) 402-370904-23-2025 [facility]04-23-2025 [facility]04-20-2025 [facility] 03-07-2025 Evaluation note* Diagnosis Onset Date Resolution Status Admit Date Acute UTI acute March 07 4:25pm SHAYY (acute kidney injury) acute March 07, 2025 4:25pm Anemia acute March 07 4:25pm Contusion of left hip acute Feb, 2025 4:25pm GI bleed acute March 07 4:25pm [...] chronic March 07, 2025 4:25pm Atherosclerosis of [place] ar riaz of both lower extremities with [...] chronic March 11, 2025 5:26pm 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 inactive March 11, 2025 5:26pm Chronic painful diabetic polyneuropathy inactive March 11, 2025 5:26pm Other specified peripheral vascular diseases inactive March 11 5:26pm Atherosclerosis of both lowe r extremities with bilateral ulceration acute April 03, 2025 1 0:32am [facility] Work Phone: 1(901) 465-196904-19-2025 Evaluation note* Diagnosis Onset Date Resolution Status [...] chronic March 07, 2025 4:25pm Atherosclerosis of [place] of both lower extremities with [...] chronic March 11, 2025 5:26pm Atherosclerosis of [place] of both lower extremities with [...] polyneuropathy chronic April 03, 2025 1 0:32am [facility] Work Phone: 1(838) 650-865304-19-2025 Evaluation note* Diagnosis Onset Date Resolution Status [...] chronic March 07, 2025 4:25pm Atherosclerosis of [place] of both lower extremities with [...] chronic March 11, 2025 5:26pm Atherosclerosis of [place] of both lower extremities with [...] 2025 9:17am Atherosclerosis of coronary artery of [place] heart without angina pectoris chronic May 07, 2025 9:17am Essential hypertension chronic Ju ne 2024 9:17am Hyperlipidemia chronic May 07, 2025 9:17am [facility] Work Phone: 1(776) 467-732104-19-2025 Evaluation note* Diagnosis Onset Date Resolution Status [...] chronic March 07, 2025 4:25pm Atherosclerosis of [place] of both lower extremities with [...] chronic March 11, 2025 5:26pm 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 inactive March 11, 2025 5:26pm Chronic painful diabetic polyneuropathy inactive March 11, 2025 5:26pm Other specified peripheral vascular diseases inactive March 11 5:26pm Atherosclerosis of both lowe r extremities with bilateral ulceration acute April 03, 2025 1 0:32am PAOD (peripheral arterial occlusive disease) acute April 03 10:32am Carotid artery stenosis chronic M ay 2025 10:32am Diabetes mellitus with polyneuropathy chronic April 03, 2025 1 0:32am Preop cardiovascular exam acute May 07, 2025 9:17am Systolic murmur acute April 9:17am Type 2 diabetes mellitus wit h hyperglycemia acute May 07, 2025 9:17am Atherosclerosis of coronary artery of [place] heart without angina pectoris chronic May 07, [...] 3:35pm Acute UTI acute May 18 2:09am [facility] Work Phone: 1(565) 602-554004-19-2025 Evaluation note* Diagnosis Onset Date Resolution Status [...] chronic March 07, 2025 4:25pm Atherosclerosis of [place] of both lower extremities with [...] chronic March 11, 2025 5:26pm Atherosclerosis of [place] of both lower extremities with [...] 2025 9:17am Atherosclerosis of coronary artery of [place] heart without angina pectoris chronic May 07, [...] fat layer exposed chronic May 18 2:09am [facility] Work Phone: 1(537) 608-928904-19-2025 Evaluation note* Diagnosis Onset Date Resolution Status [...] chronic March 07, 2025 4:25pm Atherosclerosis of [place] of both lower extremities with [...] chronic March 11, 2025 5:26pm Atherosclerosis of [place] of both lower extremities with [...] 2025 9:17am Atherosclerosis of coronary artery of [place] heart without angina pectoris chronic May 07, [...] fat layer exposed chronic May 18 2:09am [facility] Work Phone: 1(539) 832-221804-19-2025 Evaluation note* Diagnosis Onset Date Resolution Status [...] chronic March 07, 2025 4:25pm Atherosclerosis of [place] of both lower extremities with [...] chronic March 11, 2025 5:26pm Atherosclerosis of [place] of both lower extremities with [...] 2025 9:17am Atherosclerosis of coronary artery of [place] heart without angina pectoris chronic May 07, [...] 2025 3:35pm Acute hypoxic respiratory failure acute Candis 30th, 2025 2:09am Acute UTI acute May 18 [...] 1 :29pm Non-healing ulcer of right foot 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 vipul May 22, 2025 1:29pm [facility] Work Phone: 1(376) 158-752404-19-2025 Evaluation note* Diagnosis Onset Date Resolution Status [...] chronic March 07, 2025 4:25pm Atherosclerosis of [place] of both lower extremities with [...] chronic March 11, 2025 5:26pm Atherosclerosis of [place] of both lower extremities with [...] 2025 9:17am Atherosclerosis of coronary artery of [place] heart without angina pectoris chronic May 07, [...] 2025 11:46am Non-healing ulcer of right foot 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 vipul May 25, 2025 11:46am Non-pressure chronic [...] ulcer inactive May 25, 2025 1 1:46am [facility] Work Phone: 1(393) 803-993404-19-2025 Evaluation note* Diagnosis Onset Date Resolution Status [...] chronic March 07, 2025 4:25pm Atherosclerosis of [place] of both lower extremities with [...] chronic March 11, 2025 5:26pm Atherosclerosis of [place] of both lower extremities with [...] 2025 9:17am Atherosclerosis of coronary artery of [place] heart without angina pectoris chronic May 07, [...] Generalized weakness deleted May 25, 2025 11:46am [facility] Work Phone: 1(544) 505-359404-19-2025 Evaluation note* Diagnosis Onset Date Resolution Status [...] chronic March 07, 2025 4:25pm Atherosclerosis of [place] of both lower extremities with [...] chronic March 11, 2025 5:26pm Atherosclerosis of [place] of both lower extremities with [...] 2025 9:17am Atherosclerosis of coronary artery of [place] heart without angina pectoris chronic May 07, [...] 2025 6:21pm Anemia acute June 05 5:14pm [facility] Work Phone: 1(543) 568-453604-19-2025 Evaluation note* Diagnosis Onset Date Resolution Status [...] diseases resolved March 07 4:25pm Atherosclerosis of [place] of both lower extremities with [...] diseases resolved March 11 5:26pm Atherosclerosis of [place] of both lower extremities with [...] 2025 9:17am Atherosclerosis of coronary artery of [place] heart without angina pectoris chronic May 07, [...] 01 6:21pm Anemia acute June 05 5:14pm [facility] [employer] [facility] Work Phone: 1(530) 818-904804-19-2025 Evaluation note* Diagnosis Onset Date Resolution Status [...] chronic March 07, 2025 4:25pm Atherosclerosis of [place] of both lower extremities with [...] chronic March 11, 2025 5:26pm Atherosclerosis of [place] of both lower extremities with [...] 2025 9:17am Atherosclerosis of coronary artery of [place] heart without angina pectoris chronic May 07, [...] arterial occlusive disease) acute June 09 9:26am [facility] Work Phone: 1(425) 695-779904-19-2025 Evaluation note* Diagnosis Onset Date Resolution Status [...] chronic March 07, 2025 4:25pm Atherosclerosis of [place] of both lower extremities with [...] chronic March 11, 2025 5:26pm Atherosclerosis of [place] of both lower extremities with [...] 2025 9:17am Atherosclerosis of coronary artery of [place] heart without angina pectoris chronic May 07, [...] arterial occlusive disease) acute June 09 9:26am [facility] Work Phone: 1(924) 286-899704-19-2025 Evaluation note* Diagnosis Onset Date Resolution Status [...] chronic March 07, 2025 4:25pm Atherosclerosis of [place] of both lower extremities with [...] chronic March 11, 2025 5:26pm Atherosclerosis of [place] of both lower extremities with [...] 2025 9:17am Atherosclerosis of coronary artery of [place] heart without angina pectoris chronic May 07, [...] with muscle involvement without acute June 01, 6:21pm Non-pressure chronic ulcer o f left [...] arterial occlusive disease) acute June 09 9:26am [facility] Work Phone: 1(605) 289-491104-19-2025 Evaluation note* Diagnosis Onset Date Resolution Status [...] chronic March 07, 2025 4:25pm Atherosclerosis of [place] of both lower extremities with [...] chronic March 11, 2025 5:26pm Atherosclerosis of [place] of both lower extremities with [...] 2025 9:17am Atherosclerosis of coronary artery of [place] heart without angina pectoris chronic May 07, [...] with muscle involvement without acute June 01, 6:21pm Non-pressure chronic ulcer o f left [...] arterial occlusive disease) acute June 09 9:26am Atherosclerosis of [place] arteries of right leg with ulceration of heel and acute June 302024 5:50am Peripheral vascular disease acute June 30, 2025 5:50am [facility] Work Phone: 1(444) 636-145204-19-2025 Radiology Diagnostic study note [facility] [address], [place] [address] HIP, UNI W/ Pelvis 2-3 Views MR#: [id number] Acct: [id number] Name: GELY FULLER Rep #: [id number] : 1950 F 75 From: Renetta Davis MD PCP: Dr. Rishi Vasquez DO Status: RE G ER Study:HIP, UNI W/ Pelvis 2-3 Views Date of Ex am: 03/07/25 Exam# [id number] Ordering Dr: Megan Vega PROCEDURE: HIP, UNI [...] obvious acute fracture given limitations. Reading Location: [id number] CC: Dr. Rishi Vasquez DO; LILLIAM Joshua ~ Workforce Investment Act Career Manager: Signed [facility]04-19-2025 Radiology Diagnostic study note [facility] [address] [place] [address] Chest 1 View (Portable) MR#: [id number] Acct: [id number] Name: GELY FULLER Rep #: [id number] : 1950 F 75 From: Renetta Davis MD PCP: Dr. Rishi Vasquez DO Status: RE G ER Study:Chest 1 View (Portable) Date of Exam: 03/07/25 Exam# [id number] Ordering Dr: Megan Vega PROCEDURE: CHEST 1 [...] (Portable) IMPRESSION: No Acute Findings. Reading Location: [id number] CC: Dr. Rishi Vasquez DO; LILLIAM Joshua ~ Workforce Investment Act Career Manager: Signed [facility]04-19-2025 Evaluation note* Diagnosis Onset Date Resolution Status Admit Date Acute UTI acute March 07 4:25pm SHAYY (acute kidney injury) acute March 07, 2025 4:25pm Anemia acute March 07 4:25pm Contusion of left hip acute Apr 2024 4:25pm GI bleed acute March 07 4:25pm Recurrent falls acute February 4:25pm Rhabdomyolysis acute February 4:25pm Chronic kidney disease chronic Ap 2024 4:25pm [facility] Work Phone: 1(788) 354-296002-06-2025 Telephone encounter Note* Telephone Encounter - Sara [...] Solis RN December 25, 2024 5:59 PM [facility]02-06-2025 Miscellaneous Notes* Telephone Encounter - Sara Solis [...] 25, 2024 5:59 PM documented in this encounterParkview Health01-17-2025 NoteHNO ID: [id number] Author: RISHI VASQUEZ, DO Service: ? Author [...] Seeing Dr. 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 Ortiz [facility]-03/25/2020 left mild, right moderate Multiple thyroid nodules last US 01/2015 Peripheral artery disease (HCC) due to Diabetes mellitus, Dr. Kwaku Moscoso Rotator cuff syndrome of left shoulder Dr. Regi Montes [facility] PAST SURGICAL HISTORY Procedure Laterality Date AMPUTATION [...] ROTATOR CUFF REPAIR 03/11/14 Dr. Regi Thompson [facility] SLCTV CATHJ EA 1ST ORD [...] 1 tablet by wei (more content not included)...[facility]01-17-2025 History of Present illness Narrative* [...] walking. Seeing Dr. Headley pain mgmt at [facility] and she is now taking Lyrica [...] mellitus (HCC) Coronary artery disease Dr. 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 Ortiz [facility]-03/25/2020 left mild, right moderate Multiple thyroid nodules last US 01/2015 Peripheral artery disease (HCC) due to Diabetes mellitus, Dr. Kwaku Moscoso Rotator cuff syndrome of left shoulder Dr. Deluna [facility] PAST SURGICAL HISTORY Procedure Laterality Date AMPUTATION [...] 04-08-13 ROTATOR CUFF REPAIR 03/11/14 Dr. Deluna [facility] CATHJ EA 1ST ORD ABDL [...] Take 1 tablet by mouth once daily. Bckgices-Zlfw-Dce-Folic Acid 18-0.4 mg tab Take 1 tablet [...] with the plan. Rishi Vasquez DO [address] [place] [address] documented in this encounterParkview Health10-28-2024 Telephone encounter Note * Telephone Encounter - Silvestre Martinez MA - 09/15/2024 10:28 AM EDT Call to pt and notified her of response below from Provider. Pt verbalized understanding. Silvestre Martinez MA [facility]10-28-2024 Miscellaneous Notes* Telephone Encounter - Silvestre Martinez [...] out to provider. Requests call back at [phone] with provider response. Clemencia Chapman RN documented in this encounterParkview Health10-26-2024 Telephone encounter Note * Telephone Encounter - Rishi Vasquez DO - 09/13/2024 12:24 PM EDT Okay with these considerations by specialist Rishi Vasquez DO [facility]10-23-2024 Telephone encounter Note* Telephone Encounter - Clemencia [...] out to provider. Requests call back at [phone] with provider response. Clemencia Chapman RN [facility]10-01-2024 Miscellaneous Notes* Telephone Encounter - Leatha Long [...] EDT Pt wrote into the office via [employer] on 08/16/24 with questions regarding medications. Please [...] HAS HELPED. GELY FULLER documented in this encounterParkview Health10-01-2024 Telephone encounter Note * Telephone Encounter - Leatha Long LPN - 08/19/2024 2:29 PM EDT Patient notified via voice mail message. Leatha Long LPN [facility]10-01-2024 Telephone encounter Note* Telephone Encounter - Jesenia Mcgee PA-C - 08/19/2024 1:35 PM EDT Please let patient know that she can take Fish Oil 1000 mg. Jesenia Mcgee PA-C 08/19/2024 [facility] Work Phone: 1(912) 543-814309-30-2024 Telephone encounter Note* Telephone Encounter - Silvestre Martinez MA - 08/18/2024 8:47 AM EDT Pt wrote into the office via [employer] on 08/16/24 with questions regarding medications. Please [...] WENT WELL AND HAS HELPED. GELY FULLER [facility]09-30-2024 Telephone encounter Note* Telephone Encounter - Silvestre Martinez MA - 08/18/2024 8:46 AM EDT Turned into TE and routed to PCP to advise. Silvestre Martinez MA [facility]09-30-2024 Miscellaneous Notes* Telephone Encounter - Silvestre Martinez MA - 08/18/2024 8:46 AM EDT Turned into TE and routed to PCP to advise. Silvestre Martinez MA documented in this encounterParkview Health09-24-2024 Telephone encounter Note * Telephone Encounter - Annmarie Adhikari LPN - 08/12/2024 4:58 PM EDT Pt. informed via My Chart [facility]09-24-2024 Miscellaneous Notes* Telephone Encounter - Annmarie Jauregui [...] THE ISSUE. WILL AWAIT YOUR REPLY GELY MCDONALDEY * Telephone Encounter - Hina Man RN [...] advise, Hina Man RN documented in this encounterParkview Health09-24-2024 Telephone encounter Note * Telephone Encounter - Rishi Vasquez DO - 08/12/2024 4:54 PM EDT Patient has some chronic kidney disease stage 3, which is from her diabetes. She needs to make surethat the specialist doesn't think this will be a concern. Her GFR is 48 Rishi Vasquez DO [facility]09-23-2024 Telephone encounter Note* Telephone Encounter - Silvestre [...] ISSUE. WILL AWAIT YOUR REPLY GELY FULLER [facility]09-20-2024 Telephone encounter Note* Telephone Encounter - Hina [...] Please review and advise, Hina Man RN [facility]07-26-2024 Telephone encounter Note* Telephone Encounter - Annmarie Adhikari LPN - 06/13/2024 11:14 AM EDT Needs referral faxed to Car Gastelum [facility] for Pain Management. This has been faxed. [facility]07-26-2024 Miscellaneous Notes* Telephone Encounter - Annmarie Jauregui LPN - 06/13/2024 11:14 AM EDT Needs referral faxed to [facility]el[facility] for Pain Management. This has been faxed. documented in this encounterParkview Health07-23-2024 History of Present illness Narrative* Shania Layne - 06/10/2024 1:06 PM EDT POPULATION HEALTH NAVIGATION OUTREACH Action/[facility] [place] Support: Called pt to schedule an appt in Pain Management. Lvm for pt to call [phone]. Reason for Outreach Care Gap/HCC or Scheduling Wellness Visits Care Gaps due: Specialty Scheduling Patient Contacted: Unable or unnecessary to reach patient: Left message MyChart message sent Navigation Signature: Shania Layne June 10, 2024 1:06 PM documented in this encounterParkview Health07-17-2024 Telephone encounter Note * Telephone Encounter - Patricia Coronado RN - 06/04/2024 3:59 PM EDT Spoke with patient. Given message from provider's office. Patient verbalizes understanding. Patricia Coronado RN [facility]07-17-2024 Miscellaneous Notes* Telephone Encounter - Patricia Coronado [...] Thanks Rishi Vasquez DO' documented in this encounterParkview Health07-17-2024 Telephone encounter Note * Telephone Encounter - Ja Gaffney LPN - 06/04/2024 2:49 PM EDT Phoned patient left message to return call and ask to speak to a nurse. [facility]07-17-2024 Telephone encounter Note* Telephone Encounter - Rishi Vasquez DO - 06/04/2024 2:36 PM EDT Please inform patient that her mammogram is normal/negative. She will need routine screening mammogram in 1 year. Thanks Rishi Vasquez DO' [facility]07-17-2024 Note* Letter - Coordinator, Mammography - 06/04/2024 2:01 PM EDT June 04, 2024 PID: [id number] Gely Fuller [address] [place] [id number] Dear Ms. Fuller, We are pleased to [...] report will be kept [facility] at [facility] as part of your permanent medical record and are available for your continuing care. Thank you for allowing us to help in meeting your health care needs. Sincerely, Dr. Monteiro Interpreting Radiologist [facility] (Normal over 40) [facility]07-17-2024 Miscellaneous Notes* Letter - Coordinator, Mammography - 06/04/2024 2:01 PM EDT June 04, 2024 PID: [id number] Gely Mcdonaldey [address] [place] [address] Dear Ms. Fuller, We are pleased to [...] report will be kept [facility] at [facility] as part of your permanent medical record and are available for your continuing care. Thank you for allowing us to help in meeting your health care needs. Sincerely, Dr. Monteiro Interpreting Radiologist [facility] (Normal over 40) documented in this encounterParkview Health07-17-2024 History of Present illness Narrative* Rishi Vasquez DO - 06/04/2024 11:11 AM EDT Patient [...] mellitus (HCC) Coronary artery disease Dr. 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 Ortiz [facility]-03/25/2020 left mild, right moderate Multiple thyroid nodules last US 01/2015 Peripheral artery disease (HCC) due to Diabetes mellitus, Dr. Kwaku Moscoso Rotator cuff syndrome of left shoulder Dr. Regi Thompson [facility] PAST SURGICAL HISTORY Procedure Laterality Date [...] 02-10-13 right leg REVSC OPN/PRQ FEM[facility] ROTATOR CUFF REPAIR 03/11/14 Dr. Regi Thompson [facility] SLCTV CATHJ EA 1ST ORD [...] Take 1 tablet by mouth once daily. Xkjgsgmb-Ubtn-Luw-Folic Acid 18-0.4 mg tab Take 1 tablet [...] agreed with the plan. Rishi Vasquez DO [address] [place] [address] documented in this encounterParkview Health07-16-2024 History of Present illness Narrative* Elizabeth Sandoval, [...] PATIENT PRESENTS WITH AN IMPLANTABLE OR ATTACHED LABORER DRYING DEPARTMENT: No RADIOLOGY DEPARTMENT: Mammography PERIPHERAL IV DATA: Not applicable SIGNED BY: RT Mono(R) June 03, 2024 9:08 AM documented in this encounterParkview Health07-01-2024 Telephone encounter Note * Telephone Encounter - Joanie Rosario LPN - 05/19/2024 12:29 PM EDT Pt was notified of such. [facility]07-01-2024 Miscellaneous Notes* Telephone Encounter - Joanie Rosario LPN - 05/19/2024 12:29 PM EDT Pt was notified of such. * Telephone Encounter - Clary Andres APRN.CNP - 05/19/2024 11:31 AM EDT Labs are signed as pended. Please make sure she knows these are to be fasting. Thank you, Clary Andres APRN.FOURDRINIER WIRE WEAVER * Telephone Encounter - Silvestre Martinez MA - 05/19/2024 9:16 AM EDT Pt sent in [employer] message asking for lab orders for her upcoming appt 06/04/24. She would like these ordered so she can schedule lab appt. Please notify her once these have been ordered. Labs pended,please review and file. Silvestre Martinez MA documented in this encounterParkview Health07-01-2024 Telephone encounter Note * Telephone Encounter - Clary Andres APRN.FOURDRINIER WIRE WEAVER - 05/19/2024 11:31 AM EDT Labs are signed as pended. Please make sure she knows these are to be fasting. Thank you, Clary Andres APRN.FOURDRINIER WIRE WEAVER [facility]07-01-2024 Telephone encounter Note* Telephone Encounter - Silvestre Martinez MA - 05/19/2024 9:16 AM EDT Pt sent in [employer] message asking for lab orders for her upcoming appt 06/04/24. She would like these ordered so she can schedule lab appt. Please notify her once these have been ordered. Labs pended,please review and file. Silvestre Martinez MA [facility]07-01-2024 Telephone encounter Note* Telephone Encounter - Silvestre Martinez MA - 05/19/2024 9:15 AM EDT Started TE and routed to Provider. Silvestre Martinez MA [facility]07-01-2024 Miscellaneous Notes* Telephone Encounter - Silvestre Martinez MA - 05/19/2024 9:15 AM EDT Started TE and routed to Provider. Silvestre Martinez MA documented in this encounterParkview Health05-06-2024 Telephone encounter Note * Telephone Encounter - [...] Please advise. Thank you. Michaela Millan MA. [facility]05-06-2024 Miscellaneous Notes* Telephone Encounter - Michaela Millan [...] you. Michaela Millan MA. documented in this encounterParkview Health05-02-2024 History of Present illness Narrative* Anselmo Marr [...] Therapeutic exercise, Neuromuscular re- education, Manual therapy, Self-residential management, and Gait training. Updated: 02/14/24 and [...] 1043 Anselmo Marr PT documented in this encounterParkview Health04-22-2024 History of Present illness Narrative* Keisha Guzman PTA - 03/10/2024 11:34 AM EDT Program_ID:[id number] Access Code: [email or web address] URL: [email or web address] Date: 03-10-2024 Prepared By: Anselmo Marr Program [...] 1144 ANISA Rodriguez PT documented in this encounterParkview Health04-18-2024 History of Present illness Narrative* Anselmo Marr [...] LEVEL OF FUNCTION: TREATMENT: Therapeutic Exercise: 1: Dinero LimitedFit StepOne seat #11 x6 minutes (Pt provided [...] 1044 Anselmo Marr PT documented in this encounterParkview Health03-21-2024 Miscellaneous Notes* Telephone Encounter - Lebron Jacome RN - 02/07/2024 2:13 PM EDT Faxed general surgery referral and US thyroid/parathyroid to Dr. Kwaku Moscoso, per patient request (reports Dr. Moscoso never received them). . Confirmation received. * Telephone Encounter - Selma Galeano - 01/14/2024 2:38 PM EST Faxed Selma Galeano documented in this encounterParkview Health03-19-2024 History of Present illness Narrative* Keisha Guzman PTA - 02/05/2024 9:22 AM EDT Program_ID:[id number] Access Code: [email or web address] URL: [email or web address] Date: 02-05-2024 Prepared By: Anselmo Marr Program [...] use of cane. TREATMENT: Therapeutic Exercise: 1: Dinero LimitedFit StepOne seat #12 x6 minutes (1:1 throughout.) [...] 929 ANISA Rodriguez PT documented in this encounterParkview Health03-13-2024 History of Present illness Narrative* Anselmo Marr [...] cane to therapy. TREATMENT: Therapeutic Exercise: 1: FLENS StepOne seat #12 x6 minutes (1:1 throughout. [...] 1050 Anselmo Marr PT documented in this encounterParkview Health03-11-2024 Miscellaneous Notes* Telephone Encounter - Laura Isaac [...] you. Laura Isaac LPN. documented in this encounterParkview Health03-06-2024 History of Present illness Narrative* Anselmo Marr [...] LEVEL OF FUNCTION: TREATMENT: Therapeutic Exercise: 1: [employer] StepOne seat #12 x6 minutes (1:1 throughout. [...] Marr PT - 01/23/2024 10:31 AM EST Program_ID:[id number] Access Code: [email or web address] URL: [email or web address] Date: 01-23-2024 Prepared By: Anselmo Marr Program [...] sets - 10 reps documented in this encounterParkview Health02-27-2024 History of Present illness Narrative* Anselmo Marr [...] Planned: 6 Planned Treatment Interventions: Therapeutic exercise (96110), Neuromuscular re- education (66341), Manual therapy (22726), Therapeutic activities (08407), Self- residential management (92231), Gait Training (76206), Patient/Family/Caregiver Education, Body Mechanics Training, Functional training [...] Marr PT - 01/15/2024 10:42 AM EST Program_ID:[id number] Access Code: [email or web address] URL: [email or web address] Date: 01-15-2024 Prepared By: Anselmo Marr Program Notes Exercises - Hooklying Single Knee to Chest Stretch - 3 x daily - 7 x weekly - sets - 3 reps - Supine Double Knee to Chest - 3 x daily - 7 x weekly - sets - 3 reps documented in this encounterParkview Health02-22-2024 Miscellaneous Notes* Telephone Encounter - Patricia Coronado RN - 01/10/2024 3:22 PM EST Spoke with patient. Given message from provider's office. Patient verbalizes understanding. Transferred to [facility] to schedule GEN SURG [...] of the nodules esophoria documented in this encounterParkview Health02-14-2024 Miscellaneous Notes* Telephone Encounter - Ira Moreno RN - 01/02/2024 6:25 PM EST patient notified of information and would like scheduled for therapy. Patient can do Mon-Wed-Fri 8-12 or - 930-12 * Telephone Encounter [...] Kerr LPN - 12/27/2023 2:04 PM EST panOpen message: I HAVE COME TO THE CONCLUSION [...] THANK YOU, GELY FULLER documented in this encounterParkview Health02-08-2024 Miscellaneous Notes* Telephone Encounter - Betsey Kerr LPN - 12/27/2023 2:04 PM EST Sent to provider in phone encounter. documented in this encounterParkview Health02-01-2024 History of Present illness Narrative* Rebecca Puente, [facility] - 12/20/2023 9:15 AM EST Radiology Service [...] PATIENT PRESENTS WITH AN IMPLANTABLE OR ATTACHED LABORER DRYING DEPARTMENT: No RADIOLOGY DEPARTMENT: Ultrasound PERIPHERAL IV DATA: Not applicable SIGNED BY: Rebecca Puente RDMS RVT December 20, 2023 4:21 PM documented in this encounterParkview Health01-22-2024 NoteIMPRESSION: DEGENERATIVE CHANGE IN ALIGNMENT ABNORMALITIES DESCRIBED. PROGRESSION PRIOR STUDY. NO ACUTE ABNORMALITY Workforce Investment Act Career Manager: SANDRA Transcribe Date/Time: Dec 10 2023 1:03P Dictated by : CHASE SUE MD This examination was interpreted and the report reviewed and electronically signed by: CHASE SUE MD on Dec 10 2023 1:17PM EST DIVISION OF [id number] History of Present illness Narrative* Sienna Mendoza RT(Chau) - 12/10/2023 9:00 AM EST Radiology Service [...] IV DATA: Not applicable SIGNED BY: RT Denny(Chau) December 10, 2023 8:44 AM documented in this encounterParkview Health11-15-2023 Miscellaneous Notes* Telephone Encounter - Ja Gaffney [...] end of the week. documented in this encounterParkview Health10-10-2023 Miscellaneous Notes* Telephone Encounter - Yani Watts APRN.CNP - 08/28/2023 7:55 AM EDT Noted, thank you. Yani Watts APRN.FOURDRINIER WIRE WEAVER * Telephone Encounter - Lebron Jacome RN - 08/23/2023 11:57 AM EDT Pt returned call and given provider's message below with verbalized understanding. Patient reports Dr. Membreno[facility] the wound culture, from her [facility]. States she does not know why he [...] results to Dr. Membreno at fax # [phone]. Confirmation received. * Telephone Encounter - Ja [...] SARIAH Morrison: Miscellaneous Lab documented in this encounterParkview Health09-13-2023 Miscellaneous Notes* Telephone Encounter - Annmarie Adhikari [...] Rishi Vasquez DO * Telephone Encounter - Micheala Millan Ma - 07/31/2023 11:30 AM EDT Pt had blood work done at [facility]. View External Labs - Microbiology [ID [id number]] View External Labs - Miscellaneous Lab [ID [id number]] documented in this encounterParkview Health08-22-2023 Miscellaneous Notes* Telephone Encounter - Kristie Delarosa LPN - 07/10/2023 11:54 AM EDT Pt notified of same, verbalizes understanding. Kristie Delarosa LPN * Telephone Encounter - Danyelle Tripp PA-C - 07/10/2023 11:02 AM EDT Let patient know that repeat Mamm/US is normal. Return to yearly screenings. documented in this encounterParkview Health08-22-2023 History of Present illness Narrative* Rebecca Puente [...] 10, 2023 2:57 PM documented in this encounterParkview Health08-22-2023 History of Present illness Narrative* Elizabeth Sandoval [...] 10, 2023 9:56 AM documented in this encounterParkview Health07-17-2023 History of Present illness Narrative* Rishi Vasquez, - 06/04/2023 11:42 AM EDT Patient presents with: 6 Month Exam HPI: Gely Fuller is a 73 year old female who presents to the office today for review of health conditions. Concerns today: Carotid artery US on 06/22/[address] Moscoso, surgeon, on 07/10/23 for follow up CAD, has recently seen Dr. Schultz/Rick Bergeron POSTAL SERVICE CLERK, no recent new testing, no recent symptoms [...] that she may have a UTI Ms. Fuller has past history of diabetes. [...] mellitus (HCC) Coronary artery disease Dr. Ch Secretary Office Clerk, 90% blockage- unable to do stenting Diabetes mellitus type 2 in obese (HCC) Diabetic feet (HCC) Gangrene (HCC) 2012 RIGHT FOOT Hypertension Mild non proliferative diabetic retinopathy (HCC) 06/11/2013 Both eyes, Dr. Ortiz [facility]-03/25/2020 left mild, right moderate Multiple thyroid nodules last US 01/2015 Peripheral artery disease (HCC) due to Diabetes mellitus, Dr. Kwaku Moscoso Rotator cuff syndrome of left shoulder Dr. Regi Thompson [facility] PAST SURGICAL HISTORY Procedure Laterality Date [...] ROTATOR CUFF REPAIR 03/11/14 Dr. Regi Thompson [facility] CATHJ EA 1ST ORD [...] Take 1 tablet by mouth once daily. Gqctqkyq-Sdvy-Uxa-Folic Acid 18-0.4 mg tab Take 1 tablet [...] 30-44 and albumin creatinine ratio <30 mg/g ([facility]) - ICD9: 585.3, ICD10:N18.32 - eGFR: Stable [...] agreed with the plan. Rishi Vasquez DO [address] [place] [address] documented in this encounterParkview Health07-11-2023 Miscellaneous Notes* Telephone Encounter - Jessie Collins [...] views. Danyelle Tripp PA-C documented in this encounterParkview Health07-11-2023 Miscellaneous Notes* Letter - Coordinator, Mammography - 05/29/2023 12:21 PM EDT May 30, 2023 PID: [id number] Gely Fuller [address] [place] [address] Dear Ms. Fuller, Your recent breast imaging exam on 05/29/2023 showed a possible finding that requires additional imaging studies for a complete evaluation. Most such findings are probably benign (not cancer). If you have a healthcare provider who ordered/prescribed your screening mammogram: Please call [phone] or [phone]: [phone] to schedule an appointment for your additional [...] and reports are kept [facility] file at [facility] as part of your permanent medical record, and are available for your continuing care. Thank you for allowing us to help in meeting your health care needs. Sincerely, Dr. Stubbs Interpreting Radiologist [facility] (Additional imaging) documented in this encounterParkview Health07-11-2023 History of Present illness Narrative* Hawa Will [...] 29, 2023 9:58 AM documented in this encounterParkview Health07-10-2023 Miscellaneous Notes* Telephone Encounter - Michaela Millan Ma - 05/28/2023 10:17 AM EDT Last office visit: 12/05/22 F/u scheduled: 06/04/23 Michaela Millan Ma documented in this encounterParkview Health04-24-2023 Miscellaneous Notes* Telephone Encounter - Jessie Collins LPN - 03/12/2023 1:57 PM EDT Reina with Dr. Garner's office called and identified pt with name and date of . Pt getting DM shoes from them and they received everything except the office note from Dr. Sebastian 12-11-22. Requested this be faxed to them. Faxed to [phone]. Done. Jessie Collins LPN documented in this encounterParkview Health03-22-2023 Miscellaneous Notes* Telephone Encounter - Clary Andres APRN.CNP - 02/07/2023 3:05 PM EDT Order signed. Clary Andres APRN.MARK * Telephone Encounter - Selma Galeano - 02/05/2023 1:21 PM EDT Order pended Selma Galeano documented in this encounterParkview Health03-06-2023 Miscellaneous Notes* Telephone Encounter - Jessie Collins [...] want to do a PA? Reference # [id number] documented in this encounterParkview Health02-20-2023 Miscellaneous Notes* Telephone Encounter - Joanie Rosario LPN - 01/08/2023 11:53 AM EST [facility]--12/05/22 Nov--06/04/23 Last refill--07/17/22 180 with 0 refills Last labs--12/14/22 documented in this encounterParkview Health02-17-2023 Miscellaneous Notes* Telephone Encounter - Annmarie Adhikari [...] needed Rishi Vasquez DO documented in this encounterParkview Health02-16-2023 Miscellaneous Notes* Telephone Encounter - Joanie Rosario LPN - 01/04/2023 11:56 AM EST Spoke with pt gave information provided. [pt voices understanding. * Telephone Encounter - Rishi Vasquez DO - 01/04/2023 11:28 AM EST Please inform patient that her NM thyroid uptake scan shows no concerning abnormal uptake Rishi Vasquez DO documented in this encounterParkview Health02-09-2023 History of Present illness Narrative* Evelin Alfaro, [...] [address] PERFORMED: No IV SITE: GA only - not applicable, oral or physician administered agents given to patient POST EXAM PIV STATUS: Not applicable PROCEDURE TYPE: GA INJECT: Thyroid Uptake and Scan. 375 microcuries Nal-123 Capsules. No other medications given.. ADMINISTRATION TIME: 09:22 PATIENT DISCHARGED TO: Ambulatory patient, left GA department area. A Diagnostic radioactive procedure has taken place, with no further precautions necessary other than routine body substance precautions. More information regarding radiation safety can be found usingthis link: [email or web address] SIGNATURE: ISMAEL Mcpherson PATIENT NAME: Gely Fuller DATE: December 28, 2022 TIME: 09:25 AM PAGER/CONTACT #: documented in this encounterParkview Health02-01-2023 History of Present illness Narrative* Rebecca Puente [...] applicable SIGNED BY: Rebecca Puente RDMS [facility] December 20, 2022 11:23 AM documented in this encounterParkview Health01-19-2023 Miscellaneous Notes* Telephone Encounter - Joanie Rosario LPN - 12/07/2022 10:41 AM EST Called pt left message as such. * Telephone Encounter - Yani Watts APRN.CNP - 12/07/2022 10:09 AM EST No need for another carotid ultrasound at this time. Yani Watts APRN.CNP * Telephone Encounter - Joanie Rosario LPN - 12/07/2022 9:57 AM EST Mrs. Fuller came to [facility] , she states was scheduled for [...] to Rebeka to view. documented in this encounterParkview Health01-17-2023 History of Present illness Narrative* Rishi Vasquez, [...] mellitus (HCC) Coronary artery disease Dr. Ch Secretary Office Clerk, 90% blockage- unable to do stenting Diabetes mellitus type 2 in obese (HCC) Diabetic feet (HCC) Gangrene (HCC) 2012 RIGHT FOOT Hypertension Mild non proliferative diabetic retinopathy (HCC) 06/11/2013 Both eyes, Dr. Ortiz [facility]-03/25/2020 left mild, right moderate Multiple thyroid nodules last US 01/2015 Peripheral artery disease (HCC) due to Diabetes mellitus, Dr. Kwaku Moscoso Rotator cuff syndrome of left shoulder Dr. Deluna [facility] PAST SURGICAL HISTORY Procedure Laterality Date AMPUTATION [...] 04-08-13 ROTATOR CUFF REPA[facility]DL PEL/LXTR [...] Take 1 tablet by mouth once daily. Iesdqxzi-Dpgl-Dza-Folic Acid 18-0.4 mg tab Take 1 tablet [...] agreed with the plan. Rishi Vasquez DO [address] [place] [address] documented in this encounterParkview Health11-05-2022 History of Present illness Narrative* Camille Mitchell PA-C - 09/23/2022 10:45 AM EDT This note was created using Blue Roosterriter. Subjective Gely Fuller is a 72 year [...] mellitus (HCC) Coronary artery disease Dr. Ch Secretary Office Clerk, 90% blockage- unable to do stenting Diabetes mellitus type 2 in obese (HCC) Diabetic feet (HCC) Gangrene (HCC) 2012 RIGHT FOOT Hypertension Mild non proliferative diabetic retinopathy (HCC) 06/11/2013 Both eyes, Dr. Ortiz [facility]-03/25/2020 left mild, right moderate Multiple thyroid nodules last US 01/2015 Peripheral artery disease (HCC) due to Diabetes mellitus, Dr. Kwaku Moscoso Rotator cuff syndrome of left shoulder Dr. Deluna [facility] Current Outpatient Medications Medication Sig Dispense Refill [...] Take 1 tablet by mouth once daily. Twqwhobb-Oldz-Hjz-Folic Acid 18-0.4 mg tab Take 1 tablet [...] 04-08-13 ROTATOR CUFF REPAIR 03/11/14 Dr. Deluna [facility] CATHJ EA 1ST ORD ABDL [...] CULTURE Camille Mitchell PA-C documented in this encounterParkview Health10-20-2022 Miscellaneous Notes* Telephone Encounter - Sara Solis RN - 09/07/2022 11:05 AM EDT Pt called and is notified of providers results and instructions. Pt voices understanding. Pt sent information through panOpen per Pt request. Sara Solis RN * [...] would like her to discuss with her investor relations specialist to decrease this dose to 20 mg a day due to these abnormal kidney levels. Also her TSH is slightly low. I don't think she is taking any thyroid medication. Need for recheck of thyroid labs in 1 month as ordered Rishi Vasquez DO documented in this encounterParkview Health09-27-2022 History of Present illness Narrative* Camille Mitchell PA-C - 08/15/2022 1:07 PM EDT Images from the original note were not included. This note was created using Blue Roosterriter. Subjective Gely Fuller is a 72 year [...] mellitus (HCC) Coronary artery disease Dr. Ch Secretary Office Clerk, 90% blockage- unable to do stenting Diabetes mellitus type 2 in obese (HCC) Diabetic feet (HCC) Gangrene (HCC) 2012 RIGHT FOOT Hypertension Mild non proliferative diabetic retinopathy (HCC) 06/11/2013 Both eyes, Dr. Ortiz [facility]-03/25/2020 left mild, right moderate Multiple thyroid nodules last US 01/2015 Peripheral artery disease (HCC) due to Diabetes mellitus, Dr. Kwaku Moscoso Rotator cuff syndrome of left shoulder Dr. Deluna [facility] Current Outpatient Medications Medication Sig Dispense Refill [...] Take 1 tablet by mouth once daily. Oshsluxc-Pqwm-Xpw-Folic Acid 18-0.4 mg tab Take 1 tablet [...] CUFF REPAIR 03/11[facility]14 [facility] [...] XR WRIST INJURY 4V PA/LAT/OBL/SCAPH RIGHT Camille R Athy, PA-C documented in this encounterParkview Health07-30-2022 History of Present illness Narrative* Kena Older, SUPERVISOR AGRICULTURAL EDUCATION.FOURDRINIER WIRE WEAVER - 06/17/2022 8:33 AM EDT CC: Patient presents with: Arm Pain: R upper arm pain x last night HPI Gely Fuller is a 72 year old [...] mellitus (HCC) Coronary artery disease Dr. Ch Secretary Office Clerk, 90% blockage- unable to do stenting Diabetes mellitus type 2 in obese (HCC) Diabetic feet (HCC) Gangrene (HCC) 2012 RIGHT FOOT Hypertension Mild non proliferative diabetic retinopathy (HCC) 06/11/2013 Both eyes, Dr. Ortiz [facility]-03/25/2020 left mild, right moderate Multiple thyroid nodules last US 01/2015 Peripheral artery disease (HCC) due to Diabetes mellitus, Dr. Kwaku Moscoso Rotator cuff syndrome of left shoulder Dr. Deluna [facility] PAST SURGICAL HISTORY Procedure Laterality Date AMPUTATION [...] 04-08-13 ROTATOR CUFF REPAIR 03/11/14 Dr. Deluna [facility] CATHJ EA 1ST ORD ABDL [...] Take 1 tablet by mouth once daily. Ksefhnwo-Pdjj-Rtj-Folic Acid (CENTRUM COMPLETE) 18-0.4 mg tab Take [...] plan. Kena Sims APRN.CNP documented in this encounterParkview Health07-18-2022 Miscellaneous Notes* Telephone Encounter - Sara Solis [...] this. Yani Watts APRN.CNP documented in this encounterParkview Health07-18-2022 Miscellaneous Notes* Letter - Mammography Coordinator - 06/05/2022 12:46 PM EDT June 05, 2022 PID: [id number] Gely Fuller [address] [place] [address] Dear Ms. Fuller, Your recent breast imaging exam on 06/05/2022 showed a possible finding that requires additional imaging studies for a complete evaluation. Most such findings are probably benign (not cancer). If you have a healthcare provider who ordered/prescribed your screening mammogram: Please call [phone] or [phone]: [phone] to schedule an appointment for your additional [...] and reports are kept [facility] at [facility] as part of your permanent medical record, and are available for your continuing care. Thank you for allowing us to help in meeting your health care needs. Sincerely, Dr. Benjamin Interpreting Radiologist [facility] (Additional imaging) documented in this encounterParkview Health07-18-2022 History of Present illness Narrative* RT Mono(R) [...] 05, 2022 10:08 AM documented in this encounterParkview Health07-13-2022 History of Present illness Narrative* Rishi Vasquez DO - 05/31/2022 10:58 AM EDT Patient presents with: 6 Month Exam HPI: Gely Fuller is a 72 year old female who presents to the office today for review of health conditions. 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 Will have follow up in the [...] mellitus (HCC) Coronary artery disease Dr. Ch Secretary Office Clerk, 90% blockage- unable to do stenting Diabetes mellitus type 2 in obese (HCC) Diabetic feet (HCC) Gangrene (HCC) 2012 RIGHT FOOT Hypertension Mild non proliferative diabetic retinopathy (HCC) 06/11/2013 Both eyes, Dr. Ortiz [facility]-03/25/2020 left mild, right moderate Multiple thyroid nodules last US 01/2015 Peripheral artery disease (HCC) due to Diabetes mellitus, Dr. Kwaku Moscoso Rotator cuff syndrome of left shoulder Dr. Deluna [facility] PAST SURGICAL HISTORY Procedure Laterality Date AMPUTATION [...] ROTATOR CUFF REPAIR 03/11/14 Dr. Regi Thompson [facility] CATHJ EA 1ST ORD [...] Code E11.51 Insulin: No blood sugar diagnostic (BeyondCoreTOUCH ULTRA TEST) test strip Use as instructed [...] Take 1 tablet by mouth once daily. Fdwzuhcq-Uzqa-Okt-Folic Acid (CENTRUM COMPLETE) 18-0.4 mg tab Take [...] arise. - Discussed diabetic education issues of custodial diabetic complications, diet, medications- side effects and [...] - stable 8. Coronary artery disease involving [place] heart, unspecified vessel or lesion type, unspecified whether angina present - ICD9: 414.01, ICD10: I25.10 - f/u with Secretary Office Clerk, no new symptoms 9. Fatigue, unspecified type [...] with the plan. Rishi Vasquez DO [address] [place] [address] documented in this encounterParkview Health07-06-2022 Miscellaneous Notes* Telephone Encounter - Yvonne Garcia - 05/24/2022 1:32 PM EDT LM on patient's VM to schedule consult for colonoscopy. First attempt. * Telephone Encounter - Garrickfrancisco La - 05/24/2022 1:25 PM EDT Patient due for 5 year follow up colonoscopy. Patient is not appropriate for open access. Please schedule office consult Garrick La documented in this encounterParkview Health06-14-2022 Miscellaneous Notes* Telephone Encounter - Jessie Collins [...] you. Jessie Collins LPN documented in this encounterParkview Health06-06-2022 Miscellaneous Notes* Telephone Encounter - Clary Johnson APRN.MARK - 04/24/2022 12:26 PM EDT PDMP website [...] advise. Georgia Nicole LPN documented in this encounterParkview Health05-05-2022 Miscellaneous Notes* Telephone Encounter - Yani Watts [...] LPN - 03/23/2022 8:36 AM EDT [facility]-- 01/14[facility]22 Last refill-- 12/08/21 90 with 0 refills Last labs-- 03/07/22 documented in this encounterParkview Health05-05-2022 Miscellaneous Notes* Telephone Encounter - Joanie Rosario LPN - 03/23/2022 8:43 AM EDT [facility]-- 12/02/21 Last refill-- 04/06/21 30 with 11 refills Last labs- 03/07/22 documented in this encounterParkview Health05-04-2022 Evaluation note* Diagnosis Stage 3 chronic kidney disease, unspecified whether stage 3a or 3b CKD (HCC)- Primary 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) Type II or unspecified type diabetes mellitus with peripheral circulatory disorders, not stated as uncontrolled documented in this encounter [facility]04-08-2022 Miscellaneous Notes* Telephone Encounter - Selma Sanders [...] concerns. Yani Watts APRN.CNP documented in this encounterParkview Health12-27-2017 History of Past illness Narrative* Problem Noted Date Resolved Date Benign paroxysmal positional vertigo 11/14/2017 11/30/2021 Essential hypertension 11/30/2015 6 documented as of this encounter (statuses as of 03/22/2022) [facility] of Past illness Narrative* Problem Noted Date Resolved Date Benign paroxysmal positional vertigo 11/14/2017 11/30/2021 Essential hypertension 11/30/2015 6 documented as of this encounter (statuses as of 03/23/2022) [facility]27[facility] History of Past illness Narrative* Problem Noted Date Resolved Date Benign paroxysmal positional vertigo 11/14/2017 11/30/2021 Essential hypertension 11/30/2015 6 documented as of this encounter (statuses as of 04/24/2022) [address]27-2017 History of Past illness Narrative* Problem Noted Date Resolved Date Benign paroxysmal positional vertigo 11/14/2017 11/30/2021 Essential hypertension 11/30/2015 6 documented as of this encounter (statuses as of 04/26/2022) [address]27-2017 History of Past illness Narrative* Problem Noted Date Resolved Date Benign paroxysmal positional vertigo 11/14/2017 11/30/2021 Essential hypertension 11/30/2015 6 documented as of this encounter (statuses as of 05/02/2022) [address]27-2017 History of Past illness Narrative* Problem Noted Date Resolved Date Benign paroxysmal positional vertigo 11/14/2017 11/30/2021 Essential hypertension 11/30/2015 6 documented as of this encounter (statuses as of 05/24/2022) [place] [address]27-2017 History of Past illness Narrative* Problem Noted Date Resolved Date Benign paroxysmal positional vertigo 11/14/2017 11/30/2021 Essential hypertension 11/30/2015 6 documented as of this encounter (statuses as of 05/31/2022) [facility] of [facility] Narrative* Problem Noted Date Resolved Date Benign paroxysmal positional vertigo 11/14/2017 11/30/2021 Essential hypertension 11/30/2015 6 documented as of this encounter (statuses as of 06/06/2022) [facility] of [facility] illness Narrative* Problem Noted Date Resolved Date Benign paroxysmal positional vertigo 11/14/2017 11/30/2021 Essential hypertension 11/30/2015 6 documented as of this encounter (statuses as of 06/06/2022) [facility] of [facility] illness Narrative* Problem Noted Date Resolved Date Benign paroxysmal positional vertigo 11/14/2017 11/30/2021 Essential hypertension 11/30/2015 6 documented as of this encounter (statuses as of 06/07/2022) [place] [address]27-2017 History of Past illness Narrative* Problem Noted Date Resolved Date Benign paroxysmal positional vertigo 11/14/2017 11/30/2021 Essential hypertension 11/30/2015 6 documented as of this encounter (statuses as of 06/17/2022) [place] [address]27-2017 History of Past illness Narrative* Problem Noted Date Resolved Date Benign paroxysmal positional vertigo 11/14/2017 11/30/2021 Essential hypertension 11/30/2015 6 documented as of this encounter (statuses as of 08/15/2022) [address]27-2017 History of Past illness Narrative* Problem Noted Date Resolved Date Benign paroxysmal positional vertigo 11/14/2017 11/30/2021 Essential hypertension 11/30/2015 6 documented as of this encounter (statuses as of 09/07/2022) [place] [address]-27-2017 History of Past illness Narrative* Problem Noted Date Resolved Date Benign paroxysmal positional vertigo 11/14/2017 11/30/2021 Essential hypertension 11/30/2015 6 documented as of this encounter (statuses as of 09/09/2022) [place] [address]27-2017 History of Past illness Narrative* Problem Noted Date Resolved Date Benign paroxysmal positional vertigo 11/14/2017 11/30/2021 Essential hypertension 11/30/2015 6 documented as of this encounter (statuses as of 09/23/2022) [place] [address]27-2017 History of Past illness Narrative* Problem Noted Date Resolved Date Benign paroxysmal positional vertigo 11/14/2017 11/30/2021 Essential hypertension 11/30/2015 6 documented as of this encounter (statuses as of 12/05/2022) [place] [address]27-2017 History of Past illness Narrative* Problem Noted Date Resolved Date Benign paroxysmal positional vertigo 11/14/2017 11/30/2021 Essential hypertension 11/30/2015 6 documented as of this encounter (statuses as of 12/07/2022) [place] [address]27-2017 History of Past illness Narrative* Problem Noted Date Resolved Date Benign paroxysmal positional vertigo 11/14/2017 11/30/2021 Essential hypertension 11/30/2015 6 documented as of this encounter (statuses as of 01/04/2023) [facility]-27-2017 History of Past illness Narrative* Problem Noted Date Resolved Date Benign paroxysmal positional vertigo 11/14/2017 11/30/2021 Essential hypertension 11/30/2015 6 documented as of this encounter (statuses as of 01/05/2023) [facility]-27-2017 History of Past illness Narrative* Problem Noted Date Resolved Date Benign paroxysmal positional vertigo 11/14/2017 11/30/2021 Essential hypertension 11/30/2015 6 documented as of this encounter (statuses as of 01/09/2023) [facility]-27-2017 History of Past illness Narrative* Problem Noted Date Resolved Date Benign paroxysmal positional vertigo 11/14/2017 11/30/2021 Essential hypertension 11/30/2015 6 documented as of this encounter (statuses as of 02/07/2023) [facility]27-2017 History of Past illness Narrative* Problem Noted Date Resolved Date Benign paroxysmal positional vertigo 11/14/2017 11/30/2021 Essential hypertension 11/30/2015 6 documented as of this encounter (statuses as of 03/02/2023) [facility]27-2017 History of Past illness Narrative* Problem Noted Date Resolved Date Benign paroxysmal positional vertigo 11/14/2017 11/30/2021 Essential hypertension 11/30/2015 6 documented as of this encounter (statuses as of 03/12/2023) [facility]27-2017 History of Past illness Narrative* Problem Noted Date Resolved Date Benign paroxysmal positional vertigo 11/14/2017 11/30/2021 Essential hypertension 11/30/2015 6 documented as of this encounter (statuses as of 03/12/2023) [facility]27-2017 History of Past illness Narrative* Problem Noted Date Diagnosed Date Resolved Date Benign paroxysmal positional vertigo 11/14/2017 11/30/2021 Essential hypertension 11/30/201510/24 documented as of this encounter (statuses as of 05/28/2023) [facility]27-2017 History of Past illness Narrative* Problem Noted Date Diagnosed Date Resolved Date Benign paroxysmal positional vertigo 11/14/2017 11/30/2021 Essential hypertension 11/30/201510/24 documented as of this encounter (statuses as of 05/30/2023) [address]27-2017 History of Past illness Narrative* Problem Noted Date Diagnosed Date Resolved Date Benign paroxysmal positional vertigo 11/14/2017 11/30/2021 Essential hypertension 11/30/201510/24 documented as of this encounter (statuses as of 05/31/2023) [facility]27-2017 History of Past illness Narrative* Problem Noted Date Diagnosed Date Resolved Date Benign paroxysmal positional vertigo 11/14/2017 11/30/2021 Essential hypertension 11/30/201510/24 documented as of this encounter (statuses as of 06/05/2023) [address]27-2017 History of Past illness Narrative* Problem Noted Date Diagnosed Date Resolved Date Benign paroxysmal positional vertigo 11/14/2017 11/30/2021 Essential hypertension 11/30/201510/24 documented as of this encounter (statuses as of 07/10/2023) [place] [address]27-2017 History of Past illness Narrative* Problem Noted Date Diagnosed Date Resolved Date Benign paroxysmal positional vertigo 11/14/2017 11/30/2021 Essential hypertension 11/30/201510/24 documented as of this encounter (statuses as of 08/01/2023) [facility]-27-2017 History of Past illness Narrative* Problem Noted Date Diagnosed Date Resolved Date Benign paroxysmal positional vertigo 11/14/2017 11/30/2021 Essential hypertension 11/30/201510/24 documented as of this encounter (statuses as of 08/28/2023) [facility]27-2017 History of Past illness Narrative* Problem Noted Date Diagnosed Date Resolved Date Benign paroxysmal positional vertigo 11/14/2017 11/30/2021 Essential hypertension 11/30/201510/24 documented as of this encounter (statuses as of 08/31/2023) [facility]27-2017 History of Past illness Narrative* Problem Noted Date Diagnosed Date Resolved Date Benign paroxysmal positional vertigo 11/14/2017 11/30/2021 Essential hypertension 11/30/201510/24 documented as of this encounter (statuses as of 09/23/2023) [facility]-2017 History of Past illness Narrative* Problem Noted Date Diagnosed Date Resolved Date Benign paroxysmal positional vertigo 11/14/2017 11/30/2021 Essential hypertension 11/30/201510/24 documented as of this encounter (statuses as of 09/23/2023) [address]27-2017 History of Past illness Narrative* Problem Noted Date Diagnosed Date Resolved Date Benign paroxysmal positional vertigo 11/14/2017 11/30/2021 Essential hypertension 11/30/201510/24 documented as of this encounter (statuses as of 09/23/2023) [address]27-2017 History of Past illness Narrative* Problem Noted Date Diagnosed Date Resolved Date Benign paroxysmal positional vertigo 11/14/2017 11/30/2021 Essential hypertension 11/30/201510/24 documented as of this encounter (statuses as of 09/23/2023) [place] [address]27-2017 History of Past illness Narrative* Problem Noted Date Diagnosed Date Resolved Date Benign paroxysmal positional vertigo 11/14/2017 11/30/2021 Essential hypertension 11/30/201510/24 documented as of this encounter (statuses as of 09/23/2023) [place] [address]-2017 History of Past illness Narrative* Problem Noted Date Diagnosed Date Resolved Date Benign paroxysmal positional vertigo 11/14/2017 11/30/2021 Essential hypertension 11/30/201510/24 documented as of this encounter (statuses as of 10/04/2023) [place] [address] History of Past illness Narrative* Problem Noted Date Diagnosed Date Resolved Date Benign paroxysmal positional vertigo 11/14/2017 11/30/2021 Essential hypertension 11/30/201510/24 documented as of this encounter (statuses as of 12/21/2023) [place] [address]-2017 History of Past illness Narrative* Problem Noted Date Diagnosed Date Resolved Date Benign paroxysmal positional vertigo 11/14/2017 11/30/2021 Essential hypertension 11/30/201510/24 documented as of this encounter (statuses as of 12/27/2023) [place] [address]-2017 History of Past illness Narrative* Problem Noted Date Diagnosed Date Resolved Date Benign paroxysmal positional vertigo 11/14/2017 11/30/2021 Essential hypertension 11/30/201510/24 documented as of this encounter (statuses as of 01/16/2024) [place] [address]27-2017 History of Past illness Narrative* Problem Noted Date Diagnosed Date Resolved Date Benign paroxysmal positional vertigo 11/14/2017 11/30/2021 Essential hypertension 11/30/201510/24 documented as of this encounter (statuses as of 01/23/2024) [facility]-27-2017 History of Past illness Narrative* Problem Noted Date Diagnosed Date Resolved Date Benign paroxysmal positional vertigo 11/14/2017 11/30/2021 Essential hypertension 11/30/201510/24 documented as of this encounter (statuses as of 01/28/2024) [address]27-2017 History of Past illness Narrative* Problem Noted Date Diagnosed Date Resolved Date Benign paroxysmal positional vertigo 11/14/2017 11/30/2021 Essential hypertension 11/30/201510/24 documented as of this encounter (statuses as of 01/30/2024) [place] [address] History of Past illness Narrative* Problem Noted Date Diagnosed Date Resolved Date Benign paroxysmal positional vertigo 11/14/2017 11/30/2021 Essential hypertension 11/30/201510/24 documented as of this encounter (statuses as of 02/05/2024) [facility]27-2017 History of Past illness Narrative* Problem Noted Date Diagnosed Date Resolved Date Benign paroxysmal positional vertigo 11/14/2017 11/30/2021 Essential hypertension 11/30/201510/24 documented as of this encounter (statuses as of 02/07/2024) [place] [address] History of Past illness Narrative* Problem Noted Date Diagnosed Date Resolved Date Benign paroxysmal positional vertigo 11/14/2017 11/30/2021 Essential hypertension 11/30/201510/24 documented as of this encounter (statuses as of 02/22/2024) [facility]27-2017 History of Past illness Narrative* Problem Noted Date Diagnosed Date Resolved Date Benign paroxysmal positional vertigo 11/14/2017 11/30/2021 Essential hypertension 11/30/201510/24 documented as of this encounter (statuses as of 03/06/2024) [place] [address]27-2017 History of Past illness Narrative* Problem Noted Date Diagnosed Date Resolved Date Benign paroxysmal positional vertigo 11/14/2017 11/30/2021 Essential hypertension 11/30/201510/24 documented as of this encounter (statuses as of 03/07/2024) [facility] note Author Chas Diaz [facility] Note Date/Time June 30, 2025 9: 56am [facility] Medical Records Department [address] [place] [address] Anesthesia Postop Eval I 06/30/25 0955 MR#: [id number] Acct: [id number] Name: GELY FULLER Rep #:[id number] : 1950 75 From: Chas Diaz CRNA PCP: Dr. Rishi Vasquez, DO Status:AD M IN Y Race: C Location: [place] [address] Anesthesia: Postop Eval I Current Vital Signs Temperature: 97 F Pulse Rate: 65 Blood Pressure: 135/58 Respiratory Rate: 14 Pulse Ox: 99 Oxygen Delivery Method: Nasal Cannula Assessment Airway patent: Yes Spontaneous unlabored respirations: Yes Mental status: Awake nausea: No Vomiting: No Anesthesia Complication: No Fluid Hydration Crystalloid volume administer (ml): 1,100 Total IV fluid infused: 1,100 Progress Note Anesthesia document: Postop Eval 1 completed: Yes 06/30/25 0956 <Electronically signed by Chas hawkins CRNA> Date _ Chas Diaz CRNA Cosigner Signature: Date CC: ~ Signed [facility] Work Phone: Discharge summary Author Michaela Joshua [facility] Note Date/Time May 21, 2025 12:18 pm [facility] Medical Records Department [address] [place] [address] Discharge Summary 05/21/25 1134 MR#: [id number] Acct: [id number] Name: GELY FULLER Rep #:[id number] : 1950 75 From: Michaela Joshua DO PCP: Dr. Rishi Vasquez DO Status:AD M IN [place] [id number] Providers Date of Admission: 05/18/25 Primary Care Physician: Dr. Rishi Vasquez DO Consultations 05/18/25 03:19 Consult: Infectious Disease Routine Consulting Provider: Kwaku Mendoza Reason for Consult: Infected diabetic foot wounds EMERGENT Consult: No MD Notified: Yes Date Notified: 05/18/25 Time Notified: 08:30 Method of Notification: Answering Service Consult: Onc/Wound/steel loader Routine Comment: Consult: Podiatry Routine Consulting Provider: Patel Irene Reason for Consult: Infected diabetic foot wound EMERGENT Consult: No Notified: Yes Date Notified: 05/18/25 Time Notified: 02:10 Method of Notification: Text Consult: Vascular Surgery Routine Consulting Provider: Russell Clement Reason for Consult: Infected diabetic foot wounds, known marked BL LE PAD EMERGENT Consult: No MD Notified: Yes Date Notified: 05/18/25 Time Notified: 02:10 Method of Notification: Text 05/18/25 07:08 Consult: Community Arts Worker / Pulmonary Medicine Routine Consulting Provider: Intensivists/Pulmonary [...] peripheral vascular disease who presents emergency department [facility] on 05/18/2025 with achief complaint [...] [place]. She was found [...] have no beds available. We did offer [place] transitional care unit and she stated this was too far away and did not want to go there. Unfortunately, she is out of network for the transitionalcare unit in [place]. Given the fact that she refused to [...] (Auto) 64.8, Lymph % (Auto) 17.7 L, [place] % (Auto) 13.6 H, Eos % (Auto) [...] - Within 2 Weeks Patel Irene DPM [[facility] Staff - Active Staff] - See Referral Note (Per Dr. Irene recommendations) Russell Clement MD [Med Staff - Active Staff] - See Referral Note (For surgery on Sunday) Disposition Disposition (needs filled in before D/C Order can be placed): Home Health Service Charges/Coding Visit Charges Inpatient E&M: 55516 Disch Hosp >30min 05/21/25 1218 <Electronically signed by Michaela Joshua DO> Cosigner Signature (if applicable): CC: Dr. Rishi Vasquez DO; Dr. Michaela Joshua DO~ Signed [facility] Work Phone: Discharge summary Author Russell Clement [facility] Note Date/Time June 30, 2025 10 :30am [facility] Medical Records Department [address] [place] [id number] Instructions for Home/Discharge Instructions 06/30/25 1023 MR#: [id number] Acct: [id number] Name: GELY FULLER Rep #:[id number] : 1950 75 From: Russell Clement MD PCP: Dr. Rishi Vasquez DO Status:AD M IN Discharge Instructions Diet Discharge Diet: No restrictions Activity May resume sexual activity in: No Restrictions Dressing / Incision Call your doctor if your incision/area has: Sudden Increased Bleeding, IncreasedPain/ Swelling, Increased Redness and Foul Smelling Discharge Remove Dressing in: 1 week Cleanse incision/area with: Soap & Water Follow Up Care Test Results: Test results from this visit will be discussed in further detail at your follow- up appointment, if applicable. Discharge Plan Admission Admit Date/Time: 06/30/25 05:50 Attending Provider: Russell Clement Primary Care Provider: Rishi Vasquez Discharge Orders/Prescriptions Prescriptions: Continued calcium carbonate [Calcium 600] 600 mg [...] 12.5 mg PO DAILY Qty: 45 3RF Other Ambulatory Orders: Type & Screen (Routine) Timeframe: 20250630 Facility: [facility] - Location: Laboratory Ordered By: Dr. Russell Clement Referrals / Follow Up: Rishi Vasquez DO [Primary Care Provider] - Disposition Disposition (needs filled in before D/C Order can be placed): Simulation Developer Acute Care 06/30/25 1030<Electronically signed by Russell Clement MD>Russell Clement MD CC: Dr. Rishi Vasquez DO ~ Signed [facility] Work Phone: Evaluation note* Diagnosis Onset Date Resolution Status Personal history of colonic polyps acute Carotid artery stenosis acut e Essential hypertension acute Atherosclerosis of coronary artery of [place] heart without angina pectoris chronic Hyperlipidemia chronic Peripheral vascular occlusive disease chronic [facility] Work Phone: Evaluation note* Diagnosis Essential hypertension Unspecified essential [facility] Peripheral vascular occlusive disease (HCC)- Primary Peripheral vascular disease, unspecified documented in this encounter [facility] note* Diagnosis Peripheral vascular occlusive disease (HCC) Peripheral vascular disease, unspecified documented in this encounter [facility] note* Diagnosis Essential hypertension Unspecified essential hypertension documented in this encounter [facility] note* Diagnosis Diabetes mellitus type 2 [...] arthropathy, multiple sites Coronary artery disease involving [place] heart, unspecified vessel or lesion type, unspecified whether angina present Fatigue, unspecified type documented in this encounter [facility] note* Diagnosis Encounter for screening mammogram for malignant neoplasm of breast Other screening mammogram documented in this encounter [facility] note* Diagnosis Abnormal mammogram- Primary Abnormal mammogram, unspecified documented in this encounter [facility] note* Diagnosis Acute pain of right shoulder- Primary documented in this encounter [facility] noteNo assessment information [facility]WWy[facility] Work Phone: Evaluation note* Diagnosis Onset Date Resolution Status Carotid artery stenosis acut e [facility] Work Phone: Evaluation note* Diagnosis Injury of sternum, initial encounter- Primary Wrist injury, right, initial encounter documented in this encounter [facility] note* Diagnosis Onset Date Resolution Status Carotid artery stenosis 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 vipul Atherosclerosis of coronary artery of [place] heart without angina pectoris chronic Carotid artery stenosis 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 vipul Essential hypertension chron ic Hyperlipidemia chronic Peripheral vascular occlusive disease [facility] Work Phone: Evaluation note* Diagnosis Low TSH level- Primary Nonspecific abnormal results of thyroid function study Abnormal thyroid biopsy Abnormal thyroid blood test Nonspecific abnormal results of thyroid function study Borderline abnormal thyroid function test Nonspecific abnormal results of thyroid function study documented in this encounter [facility] note* Diagnosis Acute cystitis with hematuria- Primary Acute cystitis [facility] Diagnosis Onset Date Resolution Status Atherosclerosis of coronary artery of [place] heart without angina pectoris chronic Carotid artery stenosis 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 vipul Essential hypertension chron ic Hyperlipidemia chronic Peripheral vascular occlusive disease [facility] Work Phone: Evaluation note* Diagnosis Diabetes mellitus [...] stage 3a (HCC) [facility] Diagnosis Diabetes mellitus type 2 with peripheral artery disease Type II or unspecified type diabetes mellitus with peripheral circulatory disorders, not stated as uncontrolled [facility] Diagnosis Encounter for screening mammogram for malignant neoplasm of breast- Primary Other screening mammogram [facility] Diagnosis 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) Type II or unspecified type diabetes mellitus with peripheral circulatory disorders, not stated as uncontrolled [facility] Diagnosis Peripheral vascular occlusive disease (HCC) Peripheral vascular disease, unspecified [facility] Diagnosis Abnormal mammogram- Primary Abnormal mammogram, unspecified [facility]* Diagnosis Dysuria- Primary Acute cystitis with [...] arthropathy, multiple sites 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* Diagnosis Abnormal mammogram Abnormal mammogram, unspecified documented in this [facility]* Diagnosis Abnormal mammogram Abnormal mammogram, unspecified documented in this encounter [facility] note* Diagnosis Abnormal thyroid function test Nonspecific abnormal results of thyroid function study documented [facility] this [facility]* Diagnosis Peripheral vascular occlusive disease (HCC) Peripheral vascular disease, unspecified documented in this [facility]* Diagnosis Multiple thyroid nodules Nontoxic multinodular goiter [facility]* Diagnosis Chronic midline low back pain without sciatica documented in this [facility]* Diagnosis Chronic bilateral low back pain with bilateral sciatica- Primary documented in this [facility]* Diagnosis Peripheral vascular occlusive disease (HCC) Peripheral vascular disease, unspecified [facility]* Diagnosis Chronic bilateral low back pain with bilateral sciatica- Primary [facility]* Diagnosis Onset Date Resolution Status Systolic murmur acute Atherosclerosis of coronary artery of [place] heart without angina pectoris chronic Essential hypertension chron ic Hyperlipidemia chronic [facility] Work Phone: Evaluation note* Diagnosis Chronic midline low back pain without sciatica- Primary [facility] Diagnosis Multiple thyroid nodules- Primary Nontoxic multinodular goiter [facility]* Diagnosis Chronic bilateral low back pain with bilateral sciatica- Primary [facility] Diagnosis Chronic bilateral low back pain with bilateral sciatica- Primary [facility]* Diagnosis Multiple thyroid nodules- Primary [...] documented in this [facility]* Diagnosis Encounter for screening mammogram for malignant neoplasm of breast Other screening mammogram [facility] Diagnosis Chronic midline low back [...] documented in this encounter [facility]* Diagnosis Chronic midline low back pain without sciatica [facility]* Diagnosis Injury of sternum, initial encounter Wrist injury, right, initial encounter documented in this [facility]* Diagnosis Acute pain of right shoulder [facility]* Diagnosis Diabetes mellitus type 2 [...] arthropathy, multiple sites documented in this encounter [facility] note* Diagnosis Essential hypertension Unspecified essential hypertension documented in this encounter [facility] note* Diagnosis Hospital discharge follow-up- Primary Other follow-up examination Diabetic foot ulcer associated with type 2 diabetes mellitus, unspecified laterality, unspecified part of foot, unspecified ulcer stage (HCC) Abnormality of gait Falling episodes Lack of coordination [facility] Diagnosis 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)- Primary Type II or unspecified type diabetes mellitus with peripheral circulatory disorders, not stated as uncontrolled Hyperglycemia Other abnormal glucose documented in this encounter [facility] Author Maddie Merchant [facility] Note Date/Time May 18, 2025 2:32 am [facility] Medical Records Department [address] [place] [address] H&P Exam - Hospitalist 05/18/25 0201 MR#: [id number] Acct: [id number] Name: GELY FULLER Rep #:[id number] : 1950 75 From: Maddie Merchant MD PCP: Dr. Rishi Vasquez, DO Status:AD M IN Location: [facility] [place] [id number] HPI - General General Date of Admission: [...] has been rubbing who presents to the [facility] ED on 05/18/2025 with generalized [...] possibly cellulitis with postoperative changes. 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 Soft tissue swelling, without obvious soft tissue gas. Possible cellulitis. Reading Location: [facility] Assessment & Plan Assessment/Plan (1) Acute UTI: [...] has been rubbing who presents to the [facility] ED on 05/18/2025 with generalized [...] 16 minutes. Charges/Coding Visit Charges Inpatient E&M: 72257 Init Hosp L3 Procedures Hospitalists Procedures: 37514 Advncd Care Plan 30 Min 05/18/25 0232 <Electronically signed by Maddie Merchant MD> Cosigner Signature (if applicable): CC: Dr. Maddie Merchant MD; Dr. Rishi Vasquez, DO~ Signed [facility] Work Phone: Hospital Discharge instructionsAdditional [...] toe-touch touch weightbearing with offloading boot in [facility]WW[facility] Work Phone: Hospital Discharge instructionsAdditional Instructions PODIATRY [...] follow-up in vascular surgery office in 2 weeks.[facility] Work Phone: Hospital Discharge instructionsAdditional Instructions Sure his lab work was stable. She has a mild anemia which should continue to be monitored but she does not require blood transfusion today. Her hemoglobin is 7.6. She did have signs of dehydration however her blood pressure improved significantly with 2 L of IV fluid. Continue to push fluids. Continue to give antibiotics.[facility] Work Phone: Hospital Discharge instructionsAdditional Instructions Discharge to [facility] 06/30/2025 right lower extremity vascular surgery.[facility] Work Phone: Reason for referral (narrative)* Diagnostic Procedure Only (Routine) - Closed Specialty Diagnoses / Procedures Referred By Viraj t Referred To Contact BR IMAGING Diagnoses Encounter for screening mammogram for malignant neoplasm of breast Procedures ALEJANDRO SCREENING SCREENING MAMMOGRAPHY BI 2-VIEW BREAST INC Rishi Reyes DO [address] [place] [address] Br Imaging [address] [place] [address] Referral ID Status Reason Start Date Expiration Date V isits Requested Visits Authorized [id number] Closed Auto-Generate d Referral 12/05/2021 01/04/[address] [facility] for referral (narrative)* Diagnostic Procedure Only (Routine) - Authorized Specialty Diagnoses / Procedures Referred By Contac t Referred To Contact BR IMAGING Diagnoses Abnormal mammogram Procedures US BREAST LTD RT US BREAST UNI REAL TIME WITH IMAGE LIMITED Yani Watts APRN.FOURDRINIER WIRE WEAVER [address] [place] [address] Br Imaging [address] [place] [address] Referral ID Status Reason Start Date Expiration Date Visits Requested Visits Authorized [id number] Authorized Auto-Generat ed Referral 06/05/2022 07/05/2023 1 1 * Diagnostic Procedure Only (Routine) - Authorized Specialty Diagnoses / Procedures Referred By Contac t Referred To Contact BR IMAGING Diagnoses Abnormal mammogram Procedures ALEJANDRO DIAGNOSTIC RT DIAGNOSTIC MAMMOGRAPHY COMPUTER-AIDED DETCJ UNI Yani Watts APRN.FOURDRINIER WIRE WEAVER [address] [place] [address] Br Imaging [address] [place] [address] Referral ID Status Reason Start Date Expiration Date Visits Requested Visits Authorized [id number] Authorized Auto-Generat ed Referral 06/05/2022 07/05/[address] [facility] for referral (narrative)* Diagnostic Procedure Only (Urgent) - Closed Specialty Diagnoses / Procedures Referred By Contac t Referred To Contact XR IMAGING Diagnoses Acute pain of right shoulder Procedures XR SHOULDER GENERAL 3V OR MORE AP/TRUE AP/OTHER RIGHT RADEX SHOULDER COMPLETE MINIMUM 2 VIEWS Kena Sims APRN.CNP [address] [place] [address] Xr Imaging Referral ID Status Reason Start Date Expiration Date V isits Requested Visits Authorized [id number] Closed Auto-Generate d Referral 06/17/2022 07/17/[address] [facility] for referral (narrative)* Diagnostic Procedure Only (Urgent) - Closed Specialty Diagnoses / Procedures Referred By Contac t Referred To Contact XR IMAGING Diagnoses Wrist injury, right, initial encounter Procedures XR WRIST INJURY 4V PA/LAT/OBL/SCAPH RIGHT RADEX WRIST COMPLETE MINIMUM 3 VIEWS Camille Mitchell PA-C [address] [place] [address] Xr Imaging Referral ID Status Reason Start Date Expiration Date V isits Requested Visits Authorized [id number] Closed Auto-Generate d Referral 08/15/2022 09/14/2023 1 1 * Diagnostic Procedure Only (Urgent) - Closed Specialty Diagnoses / Procedures Referred By Contac t Referred To Contact XR IMAGING Diagnoses Injury of sternum, initial encounter Procedures XR STERNUM 2V BARAJAS/LAT RADEX STERNUM MINIMUM 2 VIEWS Camille Mitchell PA-C [address] [place] [address] Xr Imaging Referral ID Status Reason Start Date Expiration Date V isits Requested Visits Authorized [id number] Closed Auto-Generate d Referral 08/15/2022 09/14/[address] [facility] for referral (narrative)* Outpatient Procedure (Routine) - Authorized Specialty Diagnoses / Procedures Referred By Contac t Referred To Contact [facility] Diagnoses Carotid atherosclerosis, bilateral Procedures US CAROTID ARTERIES SADIE V[facility] LAB DUPLEX SCAN EXTRACRANIAL ART COMPL BI STUDY Rishi Vasquez DO [address] [place] [address] [facility] [place] [address] [place] [address] Referral ID Status Reason Start Date Expiration Date Visits Requested Visits Authorized [id number] Authorized Auto-Generat ed Referral 12/05/2022 12/05/[address] [facility] for referral (narrative)* Diagnostic Procedure Only (Routine) - Pending Review Specialty Diagnoses / Procedures Referred By Contac t Referred To Contact BR IMAGING Diagnoses Encounter for screening mammogram for malignant neoplasm of breast Procedures ALEJANDRO SCREENING SCREENING MAMMOGRAPHY BI 2-VIEW BREAST INC CAD Clary Andres APRN.CNP [address] [place] [address] Br Imaging [address] [place] [phone] Referral ID Status Reason Start Date Expiration Date Visits Requested Visits Authorized [id number] Pending Review Auto-Generat ed Referral 02/07/2023 03/06/[address] [facility] for referral (narrative)* Diagnostic Procedure Only (Routine) - Authorized Specialty Diagnoses / Procedures Referred By Viraj t Referred To Contact BR IMAGING Diagnoses Abnormal mammogram Procedures US BREAST LTD RIGHT US BREAST UNI REAL TIME WITH IMAGE LIMITED Danyelle Tripp PA-C [address] [place] [address] Br Imaging [address] [place] [phone] Referral ID Status Reason Start Date Expiration Date Visits Requested Visits Authorized [id number] Authorized Auto-Generat ed Referral 05/29/2023 06/27/2024 1 1 * Diagnostic Procedure Only (Routine) - Authorized Specialty Diagnoses / Procedures Referred By Contac t Referred To Contact BR IMAGING Diagnoses Abnormal mammogram Procedures ALEJANDRO DIAGNOSTIC RIGHT DIAGNOSTIC MAMMOGRAPHY COMPUTER-AIDED DETCJ UNI Danyelle Tripp PA-C [address] [place] [address] Br Imaging [address] [place] [address] Referral ID Status Reason Start Date Expiration Date Visits Requested Visits Authorized [id number] Authorized Auto-Generat ed Referral 05/29/2023 06/27/[address] [facility] for referral (narrative)* Diagnostic Procedure Only (Routine) - Closed Specialty Diagnoses / Procedures Referred By Contac t Referred To Contact BR IMAGING Diagnoses Encounter for screening mammogram for malignant neoplasm of breast Procedures ALEJANDRO SCREENING SCREENING MAMMOGRAPHY BI 2-VIEW BREAST INC Clary Huerta, YAEL [address] [place] [address] Br Imaging [address] [place] [address] Referral ID Status Reason Start Date Expiration Date V isits Requested Visits Authorized [id number] Closed Auto-Generate d Referral 02/07/2023 03/06/[address] [facility] for referral (narrative)* Diagnostic Procedure Only (Routine) - Closed Specialty Diagnoses / Procedures Referred By Contac t Referred To Contact BR IMAGING Diagnoses Abnormal mammogram Procedures US BREAST LTD RIGHT US BREAST UNI REAL TIME WITH IMAGE LIMITED Danyelle Tripp PA-C [address] [place] [address] Br Imaging [address] [place] [address] Referral ID Status Reason Start Date Expiration Date V isits Requested Visits Authorized [id number] Closed Auto-Generate d Referral 05/29/2023 06/27/[address] [facility] for referral (narrative)* Diagnostic Procedure Only (Routine) - Closed Specialty Diagnoses / Procedures Referred By Contac t Referred To Contact [facility]LECULAR [facility] FUNCTIONAL IMAGING Diagnoses Abnormal thyroid function test Procedures NM THY UPTAKE AND SCAN THYROID UPTAKE W/BLOOD FLOW SNGLE/MULT JAMARI NATALIA Rishi Vasquez, DO [address] [place] [address] Molecular & Functional Imaging [address] [place], [place] [id number] Referral ID Status Reason Start Date Expiration Date V isits Requested Visits Authorized [id number] Closed Auto-Generate d Referral 12/15/2022 01/14/2024 1 1 [facility] for referral (narrative)* Diagnostic Procedure Only (Routine) - Closed Specialty Diagnoses / Procedures Referred By Contac t Referred To Contact US IMAGING Diagnoses Abnormal thyroid function test Procedures US THYROID/PARATHYROID US SOFT TISSUE HEAD & NECK REAL TIME IMGE DOCRishi Morton DO [address] [place] [address] [place] [address] Referral ID Status Reason Start Date Expiration Date V isits Requested Visits Authorized [id number] Closed Auto-Generate d Referral 12/15/2022 01/14/2024 1 1 [facility] for referral (narrative)* Diagnostic Procedure Only (Routine) - Closed Specialty Diagnoses / Procedures Referred By Contac t Referred To Contact XR IMAGING Diagnoses Chronic midline low back pain without sciatica Procedures XR LUMBAR GENERAL 3V AP/LAT/L5-S1 RADEX SPINE LUMBOSACRAL 2/3 VIEWS Rishi Vasquez, DO [address] [place] [address] [place] [address] Referral ID Status Reason Start Date Expiration Date V isits Requested Visits Authorized [id number] Closed Auto-Generate d Referral 12/05/2023 01/03/2025 1 1 [facility] for referral (narrative)* Diagnostic Procedure Only (Urgent) - Closed Specialty Diagnoses / Procedures Referred By Contac t Referred To Contact XR IMAGING Diagnoses Wrist injury, right, initial encounter Procedures XR WRIST INJURY 4V PA/LAT/OBL/SCAPH RIGHT RADEX WRIST COMPLETE MINIMUM 3 VIEWS Camille Mitchell PA-C [address] [place] [address] [place] [address] Referral ID Status Reason Start Date Expiration Date V isits Requested Visits Authorized [id number] Closed Auto-Generate d Referral 08/15/2022 09/14/2023 1 1 * Diagnostic Procedure Only (Urgent) - Closed Specialty Diagnoses / Procedures Referred By Contac t Referred To Contact XR IMAGING Diagnoses Injury of sternum, initial encounter Procedures XR STERNUM 2V BARAJAS/LAT RADEX STERNUM MINIMUM 2 VIEWS Camille Mitchell PA-C [address] [place] [address] [place] [address] Referral ID Status Reason Start Date Expiration Date V isits Requested Visits Authorized [id number] Closed Auto-Generate d Referral 08/15/2022 09/14/[address] [facility] for referral (narrative)* Diagnostic Procedure Only (Urgent) - Closed Specialty Diagnoses / Procedures Referred By Contac t Referred To Contact XR IMAGING Diagnoses Acute pain of right shoulder Procedures XR SHOULDER GENERAL 3V OR MORE AP/TRUE AP/OTHER RIGHT RADEX SHOULDER COMPLETE MINIMUM 2 VIEWS Kena Schrader APRN.CNP [address] [place] [address] [place] [address] Referral ID Status Reason Start Date Expiration Date V isits Requested Visits Authorized [id number] Closed Auto-Generate d Referral 06/17/2022 07/17/[address] [facility] for referral (narrative)* Diagnostic Procedure Only (Routine) - Authorized Specialty Diagnoses / Procedures Referred By Contac t Referred To Contact BR IMAGING Diagnoses Encounter for screening mammogram for malignant neoplasm of breast Procedures ALEJANDRO SCREENING W BEN SCREENING DIGITAL BREAST TOMOSYNTHESIS BI SCREENING MAMMOGRAPHY BI 2-VIEW BREAST INC CAD Rishi Vasquez, DO [address] [place] [address] Br Imaging [address] [place] [address] Referral ID Status Reason Start Date Expiration Date Visits Requested Visits Authorized [id number] Authorized Auto-Generat ed Referral 12/05/2024 01/04/[address] [facility] for referral (narrative)No reason for referral information availableWWyandot [facility] Work Phone: Reason for visit Narrative* Diagnostic Procedure Only (Routine) - Closed Specialty Diagnoses / Procedures Referred By Viraj banegas Referred To Contact BR IMAGING Diagnoses Encounter for screening mammogram for malignant neoplasm of breast Procedures ALEJANDRO SCREENING SCREENING MAMMOGRAPHY BI 2-VIEW BREAST INC CAD Rishi Vasquez, DO [address] [place] [address] Br Imaging [address] [place] [address] Referral ID Status Reason Start Date Expiration Date V isits Requested Visits Authorized [id number] Closed Auto-Generate d Referral 12/05/2021 01/04/[address] [facility] for visit Narrative* Diagnostic Procedure Only (Routine) - Closed Specialty Diagnoses / Procedures Referred By Viraj t Referred To Contact BR IMAGING Diagnoses Encounter for screening mammogram for malignant neoplasm of breast Procedures ALEJANDRO SCREENING SCREENING MAMMOGRAPHY BI 2-VIEW BREAST INC CAD Clary Andres, SUPERVISOR AGRICULTURAL EDUCATION.FOURDRINIER WIRE WEAVER [address] [place] [address] Br Imaging [address] [place] [address] Referral ID Status Reason Start Date Expiration Date V isits Requested Visits Authorized [id number] Closed Auto-Generate d Referral 02/07/2023 03/06/[address] [facility] for visit Narrative* Diagnostic Procedure Only (Routine) - Closed Specialty Diagnoses / Procedures Referred By Viraj t Referred To Contact BR IMAGING Diagnoses Abnormal mammogram Procedures ALEJANDRO DIAGNOSTIC RIGHT DIAGNOSTIC MAMMOGRAPHY COMPUTER-AIDED DETCJ UNI Danyelle Tripp PA-C [address] [place] [address] Br Imaging [address] [place] [address] Referral ID Status Reason Start Date Expiration Date V isits Requested Visits Authorized [id number] Closed Auto-Generate d Referral 05/29/2023 06/27/[address] [facility] for visit Narrative* Diagnostic Procedure Only (Routine) - Closed Specialty Diagnoses / Procedures Referred By Viraj t Referred To Contact MOLECULAR & FUNCTIONAL IMAGING Diagnoses Abnormal thyroid function test Procedures NM THY UPTAKE AND SCAN THYROID UPTAKE W/BLOOD FLOW SNGLE/MULT JAMARI NATALIA Rishi Vasquez, DO [address] [place] [address] Molecular & Functional Imaging [address] [place] [address] Referral ID Status Reason Start Date Expiration Date V isits Requested Visits Authorized [id number] Closed Auto-Generate d Referral 12/15/2022 01/14/[address] [facility] for visit Narrative* Diagnostic Procedure Only (Routine) - Closed Specialty Diagnoses / Procedures Referred By Viraj banegas Referred To Contact BR IMAGING Diagnoses Encounter for screening mammogram for malignant neoplasm of breast Procedures ALEJANDRO SCREENING W BEN SCREENING DIGITAL BREAST TOMOSYNTHESIS BI SCREENING MAMMOGRAPHY BI 2-VIEW BREAST INC CAD Rishi Vasquez, DO [address] [place] [address] Br Imaging [address] [place] [address] Referral ID Status Reason Start Date Expiration Date V isits Requested Visits Authorized [id number] Closed Auto-Generate d Referral 12/05/2023 01/03/[address] [facility] for visit Narrative* Diagnostic Procedure Only (Routine) - Closed Specialty Diagnoses / Procedures Referred By Viraj banegas Referred To Contact XR IMAGING Diagnoses Chronic midline low back pain without sciatica Procedures XR LUMBAR GENERAL 3V AP/LAT/L5-S1 RADEX SPINE LUMBOSACRAL 2/3 VIEWS Rishi Vasquez, DO [address] [place] [address] [place] [address] Referral ID Status Reason Start Date Expiration Date V isits Requested Visits Authorized [id number] Closed Auto-Generate d Referral 12/05/2023 01/03/[address] [facility] for visit Narrative* Diagnostic Procedure Only (Urgent) - Closed Specialty Diagnoses / Procedures Referred By Contac t Referred To Contact XR IMAGING Diagnoses Wrist injury, right, initial encounter Procedures XR WRIST INJURY 4V PA/LAT/OBL/SCAPH RIGHT RADEX WRIST COMPLETE MINIMUM 3 VIEWS Camille Mitchell, PA-C [address] [place] [address] [place] [address] Referral ID Status Reason Start Date Expiration Date V isits Requested Visits Authorized [id number] Closed Auto-Generate d Referral 08/15/2022 09/14/[address] [facility] for visit Narrative* Diagnostic Procedure Only (Urgent) - Closed Specialty Diagnoses / Procedures Referred By Contac t Referred To Contact XR IMAGING Diagnoses Acute pain of right shoulder Procedures XR SHOULDER GENERAL 3V OR MORE AP/TRUE AP/OTHER RIGHT RADEX SHOULDER COMPLETE MINIMUM 2 VIEWS Kena Schrader, SUPERVISOR AGRICULTURAL EDUCATION.FOURDRINIER WIRE WEAVER [address] [place] [address] [place] [address] Referral ID Status Reason Start Date Expiration Date V isits Requested Visits Authorized [id number] Closed Auto-Generate d Referral 06/17/2022 07/17/2023 1 1 [facility] Chief Complaint and Reason for Visit Chief Complaint 2020 CARDIAC REHAB P HASE III MAINTENANCE-SELF PAY PHASE III MAINTENANCE SELF-PAY COLONOSCOPY PHASE III MAINTENANCE SELF-PAY 6 M FU / R/S FROM 2-7 MMM PHASE III MAINTENANCE SELF-PAY Reason for Visit Personal history of colonic polyps Carotid artery stenosis Essential hypertension Atherosclerosis of coronary artery of [place] heart without angina pectoris Hyperlipidemia Peripheral vascular occlusive disease Chief Complaint PHASE III MA INTENANCE SELF-PAY COLONOSCOPY PHASE III MAINTENANCE SELF-PAY 6 M FU / R/S FROM 2-7 MMM PHASE III MAINTENANCE SELF-PAY PHASE III MAINTENANCE SELF-PAY Reason for Visit Personal history of colonic polyps Carotid artery stenosis Essential hypertension Atherosclerosis of coronary artery of [place] heart without angina pectoris Hyperlipidemia Peripheral vascular occlusive disease Chief Complaint COLONOSCOPY PHASE III MAINTENANCE SELF-PAY 6 M FU / R/S FROM 2-7 MMM PHASE III MAINTENANCE SELF-PAY PHASE III MAINTENANCE SELF-PAY PHASE III MAINTENANCE SELF-PAY Reason for Visit Personal history of colonic polyps Carotid artery stenosis Essential hypertension Atherosclerosis of coronary artery of [place] heart without angina pectoris Hyperlipidemia Peripheral vascular [...] steno sis Atherosclerosis of coronary artery of [place] heart without angina pectoris Carotid artery stenosis Essential hypertension Hyperlipidemia Peripheral vascular occlusive disease Chief Complaint PHASE III MA INTENANCE SELF-PAY CAROTID STENOSIS BILAT CAROTID U/S 06/22 PHASE III MAINTENANCE SELF-PAY 6 M FU PHASE III MAINTENANCE SELF-PAY PHASE III MAINTENANCE SELF-PAY Reason for Visit Carotid artery steno sis Atherosclerosis of coronary artery of [place] heart without angina pectoris Carotid artery stenosis Essential hypertension Hyperlipidemia Peripheral vascular occlusive disease Chief Complaint CAROTID STENOSIS SADIE AT CAROTID U/S 06/22 PHASE III MAINTENANCE SELF-PAY 6 M FU PHASE III MAINTENANCE SELF-PAY PHASE III MAINTENANCE SELF-PAY PHASE III MAINTENANCE SELF-PAY Reason for Visit Carotid artery steno sis Atherosclerosis of coronary artery of [place] heart without angina pectoris Carotid artery stenosis Essential hypertension Hyperlipidemia Peripheral vascular occlusive disease Chief Complaint PHASE III MA INTENANCE SELF-PAY 6 M FU PHASE III MAINTENANCE SELF-PAY PHASE III MAINTENANCE SELF-PAY PHASE III MAINTENANCE SELF-PAY PVD PHASE III MAINTENANCE SELF-PAY Reason for Visit Atherosclerosis of c oronary artery of [place] heart without angina pectoris Carotid artery stenosis Essential hypertension Hyperlipidemia Peripheral vascular occlusive disease Chief Complaint 6 M FU PHASE III MAINTENANCE SELF-PAY PHASE III MAINTENANCE SELF-PAY PHASE III MAINTENANCE SELF-PAY PVD PHASE III MAINTENANCE SELF-PAY Reason for Visit Atherosclerosis of c oronary artery of [place] heart without angina pectoris Carotid artery stenosis [...] Visit Atherosclerosis of c oronary artery of [place] heart without angina pectoris Carotid artery stenosis Essential hypertension Hyperlipidemia Peripheral vascular occlusive disease Chief Complaint 2022 PH III Maintena nce Self-Pay 2022 PH III Maintenance Self-Pay 1 Y FU/Prev PFM Pt 2022 PH III Maintenance Self-Pay CAROTID STENOSIS 2022 PH III Maintenance Self-Pay Reason for Visit Atherosclerosis of c oronary artery of [place] heart without angina pectoris Carotid artery stenosis Essential hypertension Hyperlipidemia Peripheral vascular occlusive disease Chief Complaint 2022 PH III Maintena nce Self-Pay 1 Y FU/Prev PFM Pt 2022 PH III Maintenance Self-Pay CAROTID STENOSIS 2022 PH III Maintenance Self-Pay CAROTID YEARLY CHECK 2022 PH III Maintenance Self-Pay Reason for Visit Atherosclerosis of c oronary artery of [place] heart without angina pectoris Carotid artery stenosis [...] Visit Atherosclerosis of c oronary artery of [place] heart without angina pectoris Carotid artery stenosis [...] Systolic murmur Atherosclerosis of coronary artery of [place] heart without angina pectoris Essential hypertension Hyperlipidemia Chief Complaint 2023 PH3 MAINTENANCE SELF PAY 2023 PH3 MAINTENANCE SELF PAY 9 M FU/PREV PFM 2023 PH3 MAINTENANCE SELF PAY Cardiac murmur, unspecified 2023 PH3 MAINTENANCE SELF PAY Reason for Visit Systolic murmur Atherosclerosis of coronary artery of [place] heart without angina pectoris Essential hypertension Hyperlipidemia [...] March 07 2 025 4:25pm Atherosclerosis of [place] ar riaz of both lower extremities with [...] foot March 11, 025 5:26pm Atherosclerosis of [place] riaz of both lower extremities with [...] April 03, 2025 10:32 am Atherosclerosis of [place] arteries of ri ght leg [place] April 15, 2025 10:51am Reason for Visit Admit Date Acute UTI March 07, 2025 4:2 5pm HSAYY (acute kidney injury) March 07 4:25pm Anemia [...] March 07 2 025 4:25pm Atherosclerosis of [place] ar riaz of both lower extremities with [...] left foot March 11, 5:26pm Atherosclerosis of [place] ar riaz of both lower extremities with [...] April 03, 2025 10:32 am Atherosclerosis of [place] arteries of ri g[place] April 15, 2025 10:51am Atherosclerosis of [facility] April [...] April 03, 2025 10:32 am Atherosclerosis of [place] [facility] [place] April 15, 2025 10:51am Atherosclerosis of [place] [place] [facility] [place] April [...] April 03, 2025 10:32 am Atherosclerosis of [facility] [facility] [place] April 15, 2025 10:51am Atherosclerosis of [place] [facility] [place] April [...] April 03, 2025 10:32 am Atherosclerosis of [place] [place] [facility] [place] April 15, 2025 10:51am Atherosclerosis of [place] [place] [facility] [place] April [...] March 07, 2 025 4:25pm Atherosclerosis of [place] [facility] of both lower extremities with [...] foot March 11, 025 5:26pm Atherosclerosis of [place] [facility] of both lower extremities with [...] 2025 9:17am Atherosclerosis of coronary artery of [place] [facility] without angina pectoris May 07, 2025 [...] April 03, 2025 10:32 am Atherosclerosis of [facility] [place] [facility] [place] April 15, 2025 10:51am Atherosclerosis of [facility] [place] [facility] [place] April 15, 2025 4:38pm CAROTID STENOSIS April [...] April 03, 2025 10:32 am [facility] [place] [facility] April 15, 2025 10:51am Atherosclerosis of [place] [place] [facility] April 15, 2025 4:38pm [...] April 03, 2025 10:32 am Atherosclerosis of [place] [facility] [place] April 15, 2025 10:51am Atherosclerosis of [place] [facility] [place] April [...] foot March 07 025 4:25pm Atherosclerosis of [place] [facility] [place] of both lower extremities with [...] left foot March 11, 5:26pm Atherosclerosis of [place] [facility] of both lower extremities with [...] 2025 9:17am Atherosclerosis of coronary artery of [place] [facility] without angina pectoris May 07, 2025 [...] April 03, 2025 10:32 am Atherosclerosis of [place] [facility] April 15, 2025 10:51am Atherosclerosis of [facility] [place] [facility] April 15, 2025 4:38pm CAROTID STENOSIS April [...] foot March 07 025 4:25pm Atherosclerosis of [place] [facility] [place] of both lower extremities with [...] foot March 11, 025 5:26pm Atherosclerosis of [place] [facility] of both lower extremities with [...] 2025 9:17am Atherosclerosis of coronary artery of [place] [facility] without angina pectoris May 07, 2025 [...] April 03, 2025 10:32 am Atherosclerosis of [place] [facility] April 15, 2025 10:51am Atherosclerosis of [place] [facility] April 15, 2025 4:38pm [...] foot March 07 025 4:25pm Atherosclerosis of [place] [facility] [place] of both lower extremities with [...] foot March 11 025 5:26pm Atherosclerosis of [place] [facility] of both lower extremities with [...] 2025 9:17am Atherosclerosis of coronary artery of [place] [facility] without angina pectoris May 07, 2025 [...] April 03, 2025 10:32 am Atherosclerosis of [place] [facility] April 15, 2025 10:51am Atherosclerosis of [place] [facility] [place] April 15, 2025 4:38pm CAROTID [...] foot March 07 025 4:25pm Atherosclerosis of [place] [facility] [place] of both lower extremities with [...] foot March 11, 025 5:26pm Atherosclerosis of [place] [facility] [place] of both lower extremities with [...] 2025 9:17am Atherosclerosis of coronary artery of [place] [facility] without angina pectoris May 07, 2025 [...] April 03, 2025 10:32 am Atherosclerosis of [place] [facility] [place] April 15, 2025 10:51am Atherosclerosis of [place] [facility] April 15, 2025 4:38pm [...] March 07, 2 025 4:25pm Atherosclerosis of [place] [facility] [place] of both lower extremities with [...] foot March 11, 025 5:26pm Atherosclerosis of [place] [facility] of both lower extremities with [...] 2025 9:17am Atherosclerosis of coronary artery of [place] [facility] without angina pectoris May 07, 2025 [...] April 03, 2025 10:32 am Atherosclerosis of [place] [facility] April 15, 2025 10:51am Atherosclerosis of [place] [facility] [place] April 15, 2025 4:38pm CAROTID [...] foot March 07 025 4:25pm Atherosclerosis of [place] [facility] [place] of both lower extremities with [...] foot March 11 025 5:26pm Atherosclerosis of [place] [facility] [place] of both lower extremities with [...] 2025 9:17am Atherosclerosis of coronary artery of [place] [facility] without angina pectoris May 07, 2025 [...] April 03, 2025 10:32 am Atherosclerosis of [place] [facility] April 15, 2025 10:51am Atherosclerosis of [place] [facility] [place] April 15, 2025 4:38pm CAROTID [...] foot March 07 025 4:25pm Atherosclerosis of [place] [facility] [place] of both lower extremities with [...] left foot March 11, 5:26pm 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 March [...] 2025 9:17am Atherosclerosis of coronary artery of [place] [facility] without angina pectoris May 07, 2025 [...] April 03, 2025 10:32 am Atherosclerosis of [place] [facility] [place] [facility] [place] April 15, 2025 10:51am Atherosclerosis of [place] [facility] April 15, 2025 4:38pm [...] ases March 07, 2025 4:25pm Atherosclerosis of [place] [facility] [place] of both lower extremities with [...] of left foot March 11 025 5:26pm Other specified peripheral vascular dise ases March 11, 2025 5:26pm Atherosclerosis of [place] [facility] [place] of both lower extremities with [...] 2025 9:17am Atherosclerosis of coronary artery of [place] [facility] without angina pectoris May 07, 2025 [...] 6:21 pm Diabetes mellitus with polyneuropathy Ju 2024 6:21pm Hyperlipidemia June 01, 2025 6:21 [...] April 03, 2025 10:32 am Atherosclerosis of [place] [facility] [place] April 15, 2025 10:51am Atherosclerosis of [place] [facility] [place] April 15, 2025 4:38pm CAROTID [...] foot March 07 025 4:25pm Atherosclerosis of [place] [facility] [place] of both lower extremities with [...] foot March 11 025 5:26pm 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 March 11, 2025 5:26pm Chronic painful diabetic polyneuropathy March 11, 2025 5:26pm PAOD (peripheral arterial occlusive dise ase) April 03, 2025 10:32am Carotid artery stenosis April 03, 2025 1 0:32am Diabetes mellitus with polyneuropathy Ma y 2024 10:32am Atherosclerosis of both lowe r extremities with bilateral ulceration April 03, 2025 10:32am Preop cardiovascular exam Candis 19th, 202 5 9:17am Systolic murmur May 07, 2025 9:17 am Type 2 diabetes mellitus with hyperglyce leon May 07, 2025 9:17am Atherosclerosis of coronary artery of [place] [facility] without angina pectoris May 07, 2025 [...] April 03, 2025 10:32 am Atherosclerosis of [place] [facility] [place] April 15, 2025 10:51am Atherosclerosis of [place] [facility] [place] April [...] March 07, 2 025 4:25pm Atherosclerosis of [place] [facility] [place] of both lower extremities with [...] foot March 11, 025 5:26pm Atherosclerosis of [place] [facility] [place] of both lower extremities with [...] 2025 9:17am Atherosclerosis of coronary artery of [place] [facility] without angina pectoris May 07, 2025 [...] April 03, 2025 10:32 am Atherosclerosis of [place] [facility] April 15, 2025 10:51am Atherosclerosis of [place] [facility] April 15, 2025 4:38pm CAROTID STENOSIS April [...] April 03, 2025 10:32 am Atherosclerosis of [place] [facility] [place] April 15, 2025 10:51am Atherosclerosis of [place] [facility] [place] April [...] March 07, 2 025 4:25pm Atherosclerosis of [place] [facility] [place] of both lower extremities with [...] left foot March 11 5:26pm Atherosclerosis of [place] [facility] [place] of both lower extremities with [...] 2025 9:17am Atherosclerosis of coronary artery of [place] [facility] without angina pectoris May 07, 2025 [...] 2025 6:21pm Diabetes mellitus with polyneuropathy Ju 2024 6:21pm Hyperlipidemia June 01, 2025 6:21 [...] April 03, 2025 10:32 am Atherosclerosis of [place] [facility] April 15, 2025 10:51am Atherosclerosis of [place] [facility] [place] April 15, 2025 4:38pm CAROTID [...] GENERALIZED WEAKNESS June 25, 2025 9: 02am Right Femoral Endarterectomy, Right femo ral to Tib June 30, 2025 5:50am Right Femoral Endarterectomy, Right femo ral to Tib June 30, 2025 7:07am Right Femoral Endarterectomy, Right femo ral to Tib June 30, 2025 7:25am Reason for Visit Admit Date Acute UTI [...] March 07, 2 025 4:25pm Atherosclerosis of [place] [facility] [place] of both lower extremities with [...] foot March 11 025 5:26pm Atherosclerosis of [place] [facility] [place] of both lower extremities with [...] 2025 9:17am Atherosclerosis of coronary artery of [place] [facility] without angina pectoris May 07, 2025 [...] occlusive dise ase) June 09, 2025 9:26am Atherosclerosis of [place] [facility] of right leg with ulceration of heel and June 30, 2025 5:50am Peripheral vascular disease June 30, 2025 5:50am Chief Complaint Admit Date ADULT FTT, FALLS, SHAYY, RHABDO, UTI, WOUN DS March 11, 2025 5:26pm ADULT FTT, FALLS, SHAYY, RHABDO, UTI, WOUN DS March 13, 2025 3:14pm 2024 PH3 maintenance-self pay March 19 025 6:48am Hospital FU April 03, 2025 10:32 am Atherosclerosis of [place] [facility] [place] [facility] [place] April 15, 2025 10:51am Atherosclerosis of [place] [facility] April 15, 2025 4:38pm [...] GENERALIZED WEAKNESS June 25, 2025 9: 02am Right Femoral Endarterectomy, Right femo ral to Tib June 30, 2025 5:50am Right Femoral Endarterectomy, Right femo ral to Tib June 30, 2025 7:07am Right Femoral Endarterectomy, Right femo ral to Tib June 30, 2025 7:25am Pain in left lower leg July 09, 2025 3:30pm RIGHT SHOULDER July 10, 2025 9: 02am Reason for Visit Admit Date SHAYY (acute kidney injury) March 11 5:26pm [...] foot March 11, 025 5:26pm Atherosclerosis of [place] [facility] [place] of both lower extremities with [...] 2025 9:17am Atherosclerosis of coronary artery of [place] [facility] without angina pectoris May 07, 2025 [...] Generalized weakness May 25, 2025 11:4 6am Anemia June 01, 2025 6:21 pm C. difficile [...] fat layer exposed June 01, 2025 6:21pm Acute osteomyelitis of left ankle May 192024 6:21pm Acute painful diabetic polyneuropathy Ju ly 2024 6:21pm Bacteremia June 01, 2025 6:21 pm Cellulitis of left ankle June 01, 2025 6:21pm Type 2 diabetes mellitus with foot ulcer June 01, 2025 6:21pm Anemia June 05, 2025 5:14 pm PAOD (peripheral arterial occlusive dise ase) June 09, 2025 9:26am Atherosclerosis of [place] of right leg with ulceration of heel and June 30, 2025 5:50am Peripheral vascular disease June 30, 2025 5:50am Right rotator cuff tear arthropathy Augu st 2024 9:02am Right shoulder pain July 10, 2025 9: 02am Family History No Family History Records Found [...] Yes January 18, 2022 10:55am Power of Nephrologist Yes January 18 10:55am Documents on File Type Date Recorded Patient Chainer Expl anation Advance Directive(s) Advance Directive(s) 10/25/2016 10:12 AM Advance Directive(s) 10/25/2016 10:01 AM Advance Directive(s) 10/11/2016 4:06 PM Documents on File Type Date Recorded Patient Chainer Expl anation Advance Directive(s) Advance Directive(s) 10/25/2016 10:12 AM Advance Directive(s) 10/25/2016 10:01 AM Advance Directive(s) 10/11/2016 4:06 PM Documents on File Type Date Recorded Patient Chainer Expl anation Advance Directive(s) 10/25/2016 10:01 AM Documents on File Type Date Recorded Patient Chainer Expl anation Advance Directive(s) 10/25/2016 10:01 AM Advance Directive Response Recorded Date/ Time Advance Directives Yes October 12:55pm Living Will Yes January 18, 2022 9:55am Power of Nephrologist Yes January 18 9:55am Advance Directive Response Recorded Date/ Time Advance Directives Yes March 26th, 2 024 3:27pm Living Will Yes February 12, 2024 3:27pm Power of Nephrologist Yes February 11 3:27pm Advance Directive Response Recorded Date/ Time Living Will Yes October 19 1:13am Do you have a Healthcare Power of Nephrologist? Yes October 19, 2024 1:13am Advance Directives Yes April 02 9:13am Advance Directive Response Recorded Date/ Time Living Will Yes October 19 1:13am Do you have a Healthcare Power of Nephrologist? Yes October 19, 2024 1:13am Living Will No March 07, 2025 1:48pm Do you have a Healthcare Power of Nephrologist? No March 07, 2025 1:48pm Advance Directives Yes April 02 9:13am Advance Directive Response Recorded Date/ Time Do you have a Healthcare Pow er of Nephrologist? Yes March 12, 2025 11:42am Name of Medical Power of Nephrologist Julianne Louise n, sister March 12, 2025 11:42am Living Will No March 07, 2025 5:48pm Do you have a Healthcare Pow er of Nephrologist? No March 07, 2025 5:48pm Advance Directives Yes April 02 9:13am Advance Directive Response Recorded Date/ Time Do you have a Healthcare Pow er of Nephrologist? Yes March 12, 2025 11:42am Name of Medical Power of Nephrologist Julianne Louise n, sister March 12, 2025 11:42am Advance Directives on File Yes March 202024 11:26am Living Will Yes April 15, 2025 1 1:26am Do you have a Healthcare Pow er of Nephrologist? Yes April 15, 2025 11:26am Name of Medical Power of Nephrologist Julianne Louise n April 15, 2025 11:26am Advance Directives Yes April 15 11:26am Living Will No March 07, 2025 5:48pm Do you have a Healthcare Pow er of Nephrologist? No March 07, 2025 5:48pm Advance Directive Response Recorded Date/ Time Do you have a Healthcare Pow er of Nephrologist? Yes March 12, 2025 11:42am Name of Medical Power of Nephrologist Julianne hawkins, sister March 12, 2025 11:42am Advance Directives on File Yes March 202024 11:26am Living Will Yes April 15, 2025 1 1:26am Do you have a Healthcare Pow er of Nephrologist? Yes April 15, 2025 11:26am Name of Medical Power of Nephrologist Julianne hawkins April 15, 2025 11:26am Advance Directives Yes April 15 11:26am Living Will Yes April 02, 2024 9 :13am Do you have a Healthcare Pow er of Nephrologist? Yes April 02, 2024 9:13am Living Will No March 07, 2025 5:48pm Do you have a Healthcare Pow er of Nephrologist? No March 07, 2025 5:48pm Advance Directive Response Recorded Date/ Time Do you have a Healthcare Pow er of Nephrologist? Yes March 12, 2025 11:42am Name of Medical Power of Nephrologist Julianne hawkins, sister March 12, 2025 11:42am Advance Directives on File Yes March 202024 11:26am Living Will Yes April 15, 2025 1 1:26am Do you have a Healthcare Pow er of Nephrologist? Yes April 15, 2025 11:26am Name of Medical Power of Nephrologist Julianne hawkins April 15, 2025 11:26am Advance Directives Yes April 15 11:26am Living Will Yes April 02, 2024 9 :13am Do you have a Healthcare Pow er of Nephrologist? Yes April 02, 2024 9:13am Living Will No March 07, 2025 5:48pm Do you have a Healthcare Pow er of Nephrologist? No March 07, 2025 5:48pm Do you have a Healthcare Pow er of Nephrologist? Yes May 17, 2025 9:43pm Name of Medical Power of Nephrologist Miroslava- sister May 17, 2025 9:43pm Advance Directive Response Recorded Date/ Time Do you have a Healthcare Pow er of Nephrologist? Yes March 12, 2025 11:42am Name of Medical Power of Nephrologist Julianne hawkins, sister March 12, 2025 11:42am Advance Directives on File Yes March 202024 11:26am Living Will Yes April 15, 2025 1 1:26am Do you have a Healthcare Pow er of Nephrologist? Yes April 15, 2025 11:26am Name of Medical Power of Nephrologist Julianne hawkins April 15, 2025 11:26am Advance Directives Yes April 15 11:26am Living Will Yes April 02, 2024 9 :13am Do you have a Healthcare Pow er of Nephrologist? Yes April 02, 2024 9:13am Living Will No March 07, 2025 5:48pm Do you have a Healthcare Pow er of Nephrologist? No March 07, 2025 5:48pm Do you have a Healthcare Pow er of Nephrologist? Yes May 18, 2025 2:15am Name of Medical Power of Nephrologist Miroslava- sister May 17, 2025 9:43pm Advance Directive Response Recorded Date/ Time Do you have a Healthcare Pow er of Nephrologist? Yes March 12, 2025 11:42am Name of Medical Power of Nephrologist Julianne Louise n, sister March 12, 2025 11:42am Advance Directives on File Yes March 202024 11:26am Living Will Yes April 15, 2025 1 1:26am Do you have a Healthcare Pow er of Nephrologist? Yes April 15, 2025 11:26am Name of Medical Power of Nephrologist Julianne hawkins April 15, 2025 11:26am Advance Directives Yes April 15 11:26am Do you have a Healthcare Pow er of Nephrologist? Yes May 22, 2025 11:40am Name of Medical Power of Nephrologist sister May 22, 2025 11:40am Living Will Yes April 02, 2024 9 :13am Do you have a Healthcare Pow er of Nephrologist? Yes April 02, 2024 9:13am Living Will No March 07, 2025 5:48pm Do you have a Healthcare Pow er of Nephrologist? No March 07, 2025 5:48pm Do you have a Healthcare Pow er of Nephrologist? Yes May 18, 2025 2:15am Name of Medical Power of Nephrologist Miroslava- sister May 17, 2025 9:43pm Advance Directive Response Recorded Date/ Time Do you have a Healthcare Pow er of Nephrologist? Yes March 12, 2025 11:42am Name of Medical Power of Nephrologist Julianne hawkins, sister March 12, 2025 11:42am Advance Directives on File Yes March 202024 11:26am Living Will Yes April 15, 2025 1 1:26am Do you have a Healthcare Pow er of Nephrologist? Yes April 15, 2025 11:26am Name of Medical Power of Nephrologist Julianne Louise n April 15, 2025 11:26am Advance Directives Yes April 15 11:26am Do you have a Healthcare Pow er of Nephrologist? Yes May 22, 2025 2:40pm Name of Medical Power of Nephrologist sister May 22, 2025 2:40pm Living Will Yes April 02, 2024 9 :13am Do you have a Healthcare Pow er of Nephrologist? Yes April 02, 2024 9:13am Living Will No March 07, 2025 5:48pm Do you have a Healthcare Pow er of Nephrologist? No March 07, 2025 5:48pm Do you have a Healthcare Pow er of Nephrologist? Yes May 18, 2025 2:15am Name of Medical Power of Nephrologist Miroslava- May 17, 2025 9:43pm Advance Directive Response Recorded Date/ Time Do you have a Healthcare Pow er of Nephrologist? Yes March 12, 2025 11:42am Name of Medical Power of Nephrologist Julianne hawkins, sister March 12, 2025 11:42am Advance Directives on File Yes March 202024 11:26am Living Will Yes April 15, 2025 1 1:26am Do you have a Healthcare Pow er of Nephrologist? Yes April 15, 2025 11:26am Name of Medical Power of Nephrologist Julianne Louise n April 15, 2025 11:26am Advance Directives Yes April 15 11:26am Do you have a Healthcare Pow er of Nephrologist? Yes May 22, 2025 2:40pm Name of Medical Power of Nephrologist sister May 22, 2025 2:40pm Do you have a Healthcare Pow er of Nephrologist? Yes June 04, 2025 2:14pm Name of Medical Power of Nephrologist Julianne hawkins, sister June 04, 2025 2:14pm Living Will Yes April 02, 2024 9 :13am Do you have a Healthcare Pow er of Nephrologist? Yes April 02, 2024 9:13am Living Will No March 07, 2025 5:48pm Do you have a Healthcare Pow er of Nephrologist? No March 07, 2025 5:48pm Do you have a Healthcare Pow er of Nephrologist? Yes May 18, 2025 2:15am Name of Medical Power of Nephrologist Miroslava- sister May 17, 2025 9:43pm Advance Directive Response Recorded Date/ Time Do you have a Healthcare Pow er of Nephrologist? Yes March 12, 2025 11:42am Name of Medical Power of Nephrologist Julianne hawkins, sister March 12, 2025 11:42am Advance Directives on File Yes March 202024 11:26am Living Will Yes April 15, 2025 1 1:26am Do you have a Healthcare Pow er of Nephrologist? Yes April 15, 2025 11:26am Name of Medical Power of Nephrologist Julianne hawkins April 15, 2025 11:26am Advance Directives Yes April 15 11:26am Do you have a Healthcare Pow er of Nephrologist? Yes May 22, 2025 2:40pm Name of Medical Power of Nephrologist sister May 22, 2025 2:40pm Do you have a Healthcare Pow er of Nephrologist? Yes June 04, 2025 2:14pm Name of Medical Power of Nephrologist Julianne hawkins, sister June 04, 2025 2:14pm Do you have a Healthcare Pow er of Nephrologist? No June 11, 2025 8:52am Living Will Yes April 02, 2024 9 :13am Do you have a Healthcare Pow er of Nephrologist? Yes April 02, 2024 9:13am Living Will No March 07, 2025 5:48pm Do you have a Healthcare Pow er of Nephrologist? No March 07, 2025 5:48pm Do you have a Healthcare Pow er of Nephrologist? Yes May 18, 2025 2:15am Name of Medical Power of Nephrologist Miroslava- sister May 17, 2025 9:43pm Advance Directive Response Recorded Date/ Time Do you have a Healthcare Pow er of Nephrologist? Yes March 12, 2025 11:42am Name of Medical Power of Nephrologist Julianne hawkins, sister March 12, 2025 11:42am Advance Directives on File Yes March 202024 11:26am Living Will Yes April 15, 2025 1 1:26am Do you have a Healthcare Pow er of Nephrologist? Yes April 15, 2025 11:26am Name of Medical Power of Nephrologist Julianne hawkins April 15, 2025 11:26am Advance Directives Yes April 15 11:26am Do you have a Healthcare Pow er of Nephrologist? Yes June 12, 2025 9:50am Name of Medical Power of Nephrologist sister June 12, 2025 9:50am Do you have a Healthcare Pow er of Nephrologist? Yes May 22, 2025 2:40pm Name of Medical Power of Nephrologist sister May 22, 2025 2:40pm Do you have a Healthcare Pow er of Nephrologist? Yes June 04, 2025 2:14pm Name of Medical Power of Nephrologist Julianne hawkins, sister June 04, 2025 2:14pm Do you have a Healthcare Pow er of Nephrologist? No June 11, 2025 8:52am Living Will Yes April 02, 2024 9 :13am Do you have a Healthcare Pow er of Nephrologist? Yes April 02, 2024 9:13am Living Will No March 07, 2025 5:48pm Do you have a Healthcare Pow er of Nephrologist? No March 07, 2025 5:48pm Do you have a Healthcare Pow er of Nephrologist? Yes May 18, 2025 2:15am Name of Medical Power of Nephrologist Miroslava- sister May 17, 2025 9:43pm Advance Directive Response Recorded Date/ Time Do you have a Healthcare Pow er of Nephrologist? Yes March 12, 2025 11:42am Name of Medical Power of Nephrologist Julianne hawkins, sister March 12, 2025 11:42am Advance Directives on File Yes March 202024 11:26am Living Will Yes April 15, 2025 1 1:26am Do you have a Healthcare Pow er of Nephrologist? Yes April 15, 2025 11:26am Name of Medical Power of Nephrologist Julianne hawkins April 15, 2025 11:26am Advance Directives Yes April 15 11:26am Do you have a Healthcare Pow er of Nephrologist? Yes June 12, 2025 9:50am Name of Medical Power of Nephrologist sister June 12, 2025 9:50am Do you have a Healthcare Pow er of Nephrologist? Yes May 22, 2025 2:40pm Name of Medical Power of Nephrologist sister May 22, 2025 2:40pm Do you have a Healthcare Pow er of Nephrologist? Yes June 04, 2025 2:14pm Name of Medical Power of Nephrologist Julianne hawkins, sister June 04, 2025 2:14pm Do you have a Healthcare Pow er of Nephrologist? No June 11, 2025 8:52am Living Will Yes April 02, 2024 9 :13am Do you have a Healthcare Pow er of Nephrologist? Yes April 02, 2024 9:13am Do you have a Healthcare Pow er of Nephrologist? Yes May 18, 2025 2:15am Name of Medical Power of Nephrologist Miroslava- May 17, 2025 9:43pm Reason for Referral Specialty Diagnoses / Procedures Referred By Viraj banegas Referred To Contact [facility] Diagnoses Chronic midline low back pain without sciatica Procedures CONSULT TO PHYSICAL THERAPY PHYSICAL THERAPY EVALUATION HIGH COMPLEX 45 MINS Rishi Vasquez, [address] [place] [address] [facility] [place] [address] [place] [address] Referral ID Status Reason Start Date Expiration Date Visits Requested Visits Authorized [id number] Authorized Auto-Generat ed Referral 11/19/2023 11/18/2024 99 99 Specialty Diagnoses / Procedures Referred By Viraj banegas Referred To Contact General Surgery Diagnoses Multiple thyroid nodules Procedures CONSULT TO GENERAL SURGERY OFFICE/OUTPATIENT NEW HIGH MDM 60 MINUTES Rishi Vasquez L, DO [address] [place] [address] Referral ID Status Reason Start Date Expiration Date Visits Requested Visits Authorized [id number] Authorized PCP Requested Referral 01/10/2024 01/09/2025 1 1 Specialty Diagnoses / Procedures Referred By Contac t Referred To Contact Pain Management Diagnoses Chronic midline low back pain without sciatica DDD (degenerative disc disease), lumbar Procedures CONSULT TO PAIN MGT OFFICE/OUTPATIENT NEW HIGH MDM 60 MINUTES VasquezRishi Melinda, DO [address] [place] [address] Referral ID Status Reason Start Date Expiration Date Visits Requested Visits Authorized [id number] Authorized PCP Requested Referral 06/04/2024 06/04/2025 1 [...] or prosecute any alcohol or drug abuse patient.[facility]In the event this information is protected by the Federal Confidentiality of Alcohol and Drug Abuse Patient Records regulations: The Federal rules restrict any use of the information to criminally investigate or prosecute any alcohol or drug abuse patient.[facility]In the event this information is protected by the Federal Confidentiality of Alcohol and Drug Abuse Patient Records regulations: The Federal rules restrict any use of the information to criminally investigate or prosecute any alcohol or drug abuse patient.[facility]In the event this information is protected by the Federal Confidentiality of Alcohol and Drug Abuse Patient Records regulations: The Federal rules restrict any use of the information to criminally investigate or prosecute any alcohol or drug abuse patient.[facility] HealthIn the event this information is protected by the Federal Confidentiality of Alcohol and Drug Abuse Patient Records regulations: The Federal rules restrict any use of the information to criminally investigate or prosecute any alcohol or drug abuse patient.[facility]In the event this information is protected by the Federal Confidentiality of Alcohol and Drug Abuse Patient Records regulations: The Federal rules restrict any use of the information to criminally investigate or prosecute any alcohol or drug abuse patient.[facility]In the event this information is protected by the Federal Confidentiality of Alcohol and Drug Abuse Patient Records regulations: The Federal rules restrict any use of the information to criminally investigate or prosecute any alcohol or drug abuse patient.[facility]In the event this information is protected by the Federal Confidentiality of Alcohol and Drug Abuse Patient Records regulations: The Federal rules restrict any use of the information to criminally investigate or prosecute any alcohol or drug abuse patient.[facility]In the event this information is protected by the Federal Confidentiality of Alcohol and Drug Abuse Patient Records regulations: The Federal rules restrict any use of the information to criminally investigate or prosecute any alcohol or drug abuse patient.[facility]In the event this information is protected by the Federal Confidentiality of Alcohol and Drug Abuse Patient Records regulations: The Federal rules restrict any use of the information to criminally investigate or prosecute any alcohol or drug abuse patient.[facility]In the event this information is protected by the Federal Confidentiality of Alcohol and Drug Abuse Patient Records regulations: The Federal rules restrict any use of the information to criminally investigate or prosecute any alcohol or drug abuse patient.[facility]In the event this information is protected by the Federal Confidentiality of Alcohol and Drug Abuse Patient Records regulations: The Federal rules restrict any use of the information to criminally investigate or prosecute any alcohol or drug abuse patient.[facility]In the event this information is protected by the Federal Confidentiality of Alcohol and Drug Abuse Patient Records regulations: The Federal rules restrict any use of the information to criminally investigate or prosecute any alcohol or drug abuse patient.[facility]In the event this information is protected by the Federal Confidentiality of Alcohol and Drug Abuse Patient Records regulations: The Federal rules restrict any use of the information to criminally investigate or prosecute any alcohol or drug abuse patient.[facility]In the event this information is protected by the Federal Confidentiality of Alcohol and Drug Abuse Patient Records regulations: The Federal rules restrict any use of the information to criminally investigate or prosecute any alcohol or drug abuse patient.[facility]In the event this information is protected by the Federal Confidentiality of Alcohol and Drug Abuse Patient Records regulations: The Federal rules restrict any use of the information to criminally investigate or prosecute any alcohol or drug abuse patient.[facility]In the event this information is protected by the Federal Confidentiality of Alcohol and Drug Abuse Patient Records regulations: The Federal rules restrict any use of the information to criminally investigate or prosecute any alcohol or drug abuse patient.[facility]In the event this information is protected by the Federal Confidentiality of Alcohol and Drug Abuse Patient Records regulations: The Federal rules restrict any use of the information to criminally investigate or prosecute any alcohol or drug abuse patient.[facility]In the event this information is protected by the Federal Confidentiality of Alcohol and Drug Abuse Patient Records regulations: The Federal rules restrict any use of the information to criminally investigate or prosecute any alcohol or drug abuse patient.[facility]In the event this information is protected by the Federal Confidentiality of Alcohol and Drug Abuse Patient Records regulations: The Federal rules restrict any use of the information to criminally investigate or prosecute any alcohol or drug abuse patient.[facility]In the event this information is protected by the Federal Confidentiality of Alcohol and Drug Abuse Patient Records regulations: The Federal rules restrict any use of the information to criminally investigate or prosecute any alcohol or drug abuse patient.[facility]In the event this information is protected by the Federal Confidentiality of Alcohol and Drug Abuse Patient Records regulations: The Federal rules restrict any use of the information to criminally investigate or prosecute any alcohol or drug abuse patient.[facility]In the event this information is protected by the Federal Confidentiality of Alcohol and Drug Abuse Patient Records regulations: The Federal rules restrict any use of the information to criminally investigate or prosecute any alcohol or drug abuse patient.[facility]In the event this information is protected by the Federal Confidentiality of Alcohol and Drug Abuse Patient Records regulations: The Federal rules restrict any use of the information to criminally investigate or prosecute any alcohol or drug abuse patient.[facility]In the event this information is protected by the Federal Confidentiality of Alcohol and Drug Abuse Patient Records regulations: The Federal rules restrict any use of the information to criminally investigate or prosecute any alcohol or drug abuse patient.[facility]In the event this information is protected by the Federal Confidentiality of Alcohol and Drug Abuse Patient Records regulations: The Federal rules restrict any use of the information to criminally investigate or prosecute any alcohol or drug abuse patient.[facility]In the event this information is protected by the Federal Confidentiality of Alcohol and Drug Abuse Patient Records regulations: The Federal rules restrict any use of the information to criminally investigate or prosecute any alcohol or drug abuse patient.[facility]In the event this information is protected by the Federal Confidentiality of Alcohol and Drug Abuse Patient Records regulations: The Federal rules restrict any use of the information to criminally investigate or prosecute any alcohol or drug abuse patient.[facility]In the event this information is protected by the Federal Confidentiality of Alcohol and Drug Abuse Patient Records regulations: The Federal rules restrict any use of the information to criminally investigate or prosecute any alcohol or drug abuse patient.[facility]In the event this information is protected by the Federal Confidentiality of Alcohol and Drug Abuse Patient Records regulations: The Federal rules restrict any use of the information to criminally investigate or prosecute any alcohol or drug abuse patient.[facility]In the event this information is protected by the Federal Confidentiality of Alcohol and Drug Abuse Patient Records regulations: The Federal rules restrict any use of the information to criminally investigate or prosecute any alcohol or drug abuse patient.[facility]In the event this information is protected by the Federal Confidentiality of Alcohol and Drug Abuse Patient Records regulations: The Federal rules restrict any use of the information to criminally investigate or prosecute any alcohol or drug abuse patient.[facility]In the event this information is protected by the Federal Confidentiality of Alcohol and Drug Abuse Patient Records regulations: The Federal rules restrict any use of the information to criminally investigate or prosecute any alcohol or drug abuse patient.[facility]In the event this information is protected by the Federal Confidentiality of Alcohol and Drug Abuse Patient Records regulations: The Federal rules restrict any use of the information to criminally investigate or prosecute any alcohol or drug abuse patient.[facility]In the event this information is protected by the Federal Confidentiality of Alcohol and Drug Abuse Patient Records regulations: The Federal rules restrict any use of the information to criminally investigate or prosecute any alcohol or drug abuse patient.[facility]In the event this information is protected by the Federal Confidentiality of Alcohol and Drug Abuse Patient Records regulations: The Federal rules restrict any use of the information to criminally investigate or prosecute any alcohol or drug abuse patient.[facility]In the event this information is protected by the Federal Confidentiality of Alcohol and Drug Abuse Patient Records regulations: The Federal rules restrict any use of the information to criminally investigate or prosecute any alcohol or drug abuse patient.[facility]In the event this information is protected by the Federal Confidentiality of Alcohol and Drug Abuse Patient Records regulations: The Federal rules restrict any use of the information to criminally investigate or prosecute any alcohol or drug abuse patient.[facility]In the event this information is protected by the Federal Confidentiality of Alcohol and Drug Abuse Patient Records regulations: The Federal rules restrict any use of the information to criminally investigate or prosecute any alcohol or drug abuse patient.[facility]In the event this information is protected by the Federal Confidentiality of Alcohol and Drug Abuse Patient Records regulations: The Federal rules restrict any use of the information to criminally investigate or prosecute any alcohol or drug abuse patient.[facility]In the event this information is protected by the Federal Confidentiality of Alcohol and Drug Abuse Patient Records regulations: The Federal rules restrict any use of the information to criminally investigate or prosecute any alcohol or drug abuse patient.[facility]In the event this information is protected by the Federal Confidentiality of Alcohol and Drug Abuse Patient Records regulations: The Federal rules restrict any use of the information to criminally investigate or prosecute any alcohol or drug abuse patient.[facility]In the event this information is protected by the Federal Confidentiality of Alcohol and Drug Abuse Patient Records regulations: The Federal rules restrict any use of the information to criminally investigate or prosecute any alcohol or drug abuse patient.[facility]In the event this information is protected by the Federal Confidentiality of Alcohol and Drug Abuse Patient Records regulations: The Federal rules restrict any use of the information to criminally investigate or prosecute any alcohol or drug abuse patient.[facility]In the event this information is protected by the Federal Confidentiality of Alcohol and Drug Abuse Patient Records regulations: The Federal rules restrict any use of the information to criminally investigate or prosecute any alcohol or drug abuse patient.[facility]In the event this information is protected by the Federal Confidentiality of Alcohol and Drug Abuse Patient Records regulations: The Federal rules restrict any use of the information to criminally investigate or prosecute any alcohol or drug abuse patient.[facility]In the event this information is protected by the Federal Confidentiality of Alcohol and Drug Abuse Patient Records regulations: The Federal rules restrict any use of the information to criminally investigate or prosecute any alcohol or drug abuse patient.[facility]In the event this information is protected by the Federal Confidentiality of Alcohol and Drug Abuse Patient Records regulations: The Federal rules restrict any use of the information to criminally investigate or prosecute any alcohol or drug abuse patient.[facility]In the event this information is protected by the Federal Confidentiality of Alcohol and Drug Abuse Patient Records regulations: The Federal rules restrict any use of the information to criminally investigate or prosecute any alcohol or drug abuse patient.[facility]In the event this information is protected by the Federal Confidentiality of Alcohol and Drug Abuse Patient Records regulations: The Federal rules restrict any use of the information to criminally investigate or prosecute any alcohol or drug abuse patient.[facility]In the event this information is protected by the Federal Confidentiality of Alcohol and Drug Abuse Patient Records regulations: The Federal rules restrict any use of the information to criminally investigate or prosecute any alcohol or drug abuse patient.[facility]In the event this information is protected by the Federal Confidentiality of Alcohol and Drug Abuse Patient Records regulations: The Federal rules restrict any use of the information to criminally investigate or prosecute any alcohol or drug abuse patient.[facility]In the event this information is protected by the Federal Confidentiality of Alcohol and Drug Abuse Patient Records regulations: The Federal rules restrict any use of the information to criminally investigate or prosecute any alcohol or drug abuse patient.[facility]In the event this information is protected by the Federal Confidentiality of Alcohol and Drug Abuse Patient Records regulations: The Federal rules restrict any use of the information to criminally investigate or prosecute any alcohol or drug abuse patient.[facility]In the event this information is protected by the Federal Confidentiality of Alcohol and Drug Abuse Patient Records regulations: The Federal rules restrict any use of the information to criminally investigate or prosecute any alcohol or drug abuse patient.[facility]In the event this information is protected by the Federal Confidentiality of Alcohol and Drug Abuse Patient Records regulations: The Federal rules restrict any use of the information to criminally investigate or prosecute any alcohol or drug abuse patient.[facility]In the event this information is protected by the Federal Confidentiality of Alcohol and Drug Abuse Patient Records regulations: The Federal rules restrict any use of the information to criminally investigate or prosecute any alcohol or drug abuse patient.[facility]In the event this information is protected by the Federal Confidentiality of Alcohol and Drug Abuse Patient Records regulations: The Federal rules restrict any use of the information to criminally investigate or prosecute any alcohol or drug abuse patient.[facility]In the event this information is protected by the Federal Confidentiality of Alcohol and Drug Abuse Patient Records regulations: The Federal rules restrict any use of the information to criminally investigate or prosecute any alcohol or drug abuse patient.[facility]In the event this information is protected by the Federal Confidentiality of Alcohol and Drug Abuse Patient Records regulations: The Federal rules restrict any use of the information to criminally investigate or prosecute any alcohol or drug abuse patient.[facility]In the event this information is protected by the Federal Confidentiality of Alcohol and Drug Abuse Patient Records regulations: The Federal rules restrict any use of the information to criminally investigate or prosecute any alcohol or drug abuse patient.[facility]In the event this information is protected by the Federal Confidentiality of Alcohol and Drug Abuse Patient Records regulations: The Federal rules restrict any use of the information to criminally investigate or prosecute any alcohol or drug abuse patient.[facility]In the event this information is protected by the Federal Confidentiality of Alcohol and Drug Abuse Patient Records regulations: The Federal rules restrict any use of the information to criminally investigate or prosecute any alcohol or drug abuse patient.[facility]In the event this information is protected by the Federal Confidentiality of Alcohol and Drug Abuse Patient Records regulations: The Federal rules restrict any use of the information to criminally investigate or prosecute any alcohol or drug abuse patient.[facility]In the event this information is protected by the Federal Confidentiality of Alcohol and Drug Abuse Patient Records regulations: The Federal rules restrict any use of the information to criminally investigate or prosecute any alcohol or drug abuse patient.[facility]In the event this information is protected by the Federal Confidentiality of Alcohol and Drug Abuse Patient Records regulations: The Federal rules restrict any use of the information to criminally investigate or prosecute any alcohol or drug abuse patient.[facility]In the event this information is protected by the Federal Confidentiality of Alcohol and Drug Abuse Patient Records regulations: The Federal rules restrict any use of the information to criminally investigate or prosecute any alcohol or drug abuse patient.[facility]In the event this information is protected by the Federal Confidentiality of Alcohol and Drug Abuse Patient Records regulations: The Federal rules restrict any use of the information to criminally investigate or prosecute any alcohol or drug abuse patient.[facility]In the event this information is protected by the Federal Confidentiality of Alcohol and Drug Abuse Patient Records regulations: The Federal rules restrict any use of the information to criminally investigate or prosecute any alcohol or drug abuse patient.[facility]In the event this information is protected by the Federal Confidentiality of Alcohol and Drug Abuse Patient Records regulations: The Federal rules restrict any use of the information to criminally investigate or prosecute any alcohol or drug abuse patient.[facility]In the event this information is protected by the Federal Confidentiality of Alcohol and Drug Abuse Patient Records regulations: The Federal rules restrict any use of the information to criminally investigate or prosecute any alcohol or drug abuse patient.[facility]In the event this information is protected by the Federal Confidentiality of Alcohol and Drug Abuse Patient Records regulations: The Federal rules restrict any use of the information to criminally investigate or prosecute any alcohol or drug abuse patient.[facility]In the event this information is protected by the Federal Confidentiality of Alcohol and Drug Abuse Patient Records regulations: The Federal rules restrict any use of the information to criminally investigate or prosecute any alcohol or drug abuse patient.[facility]In the event this information is protected by the Federal Confidentiality of Alcohol and Drug Abuse Patient Records regulations: The Federal rules restrict any use of the information to criminally investigate or prosecute any alcohol or drug abuse patient.[facility]In the event this information is protected by the Federal Confidentiality of Alcohol and Drug Abuse Patient Records regulations: The Federal rules restrict any use of the information to criminally investigate or prosecute any alcohol or drug abuse patient.[facility]In the event this information is protected by the Federal Confidentiality of Alcohol and Drug Abuse Patient Records regulations: The Federal rules restrict any use of the information to criminally investigate or prosecute any alcohol or drug abuse patient.[facility]In the event this information is protected by the Federal Confidentiality of Alcohol and Drug Abuse Patient Records regulations: The Federal rules restrict any use of the information to criminally investigate or prosecute any alcohol or drug abuse patient.[facility]In the event this information is protected by the Federal Confidentiality of Alcohol and Drug Abuse Patient Records regulations: The Federal rules restrict any use of the information to criminally investigate or prosecute any alcohol or drug abuse patient.[facility]In the event this information is protected by the Federal Confidentiality of Alcohol and Drug Abuse Patient Records regulations: The Federal rules restrict any use of the information to criminally investigate or prosecute any alcohol or drug abuse patient.[facility]In the event this information is protected by the Federal Confidentiality of Alcohol and Drug Abuse Patient Records regulations: The Federal rules restrict any use of the information to criminally investigate or prosecute any alcohol or drug abuse patient.[facility]In the event this information is protected by the Federal Confidentiality of Alcohol and Drug Abuse Patient Records regulations: The Federal rules restrict any use of the information to criminally investigate or prosecute any alcohol or drug abuse patient.[facility]In the event this information is protected by the Federal Confidentiality of Alcohol and Drug Abuse Patient Records regulations: The Federal rules restrict any use of the information to criminally investigate or prosecute any alcohol or drug abuse patient.[facility]In the event this information is protected by the Federal Confidentiality of Alcohol and Drug Abuse Patient Records regulations: The Federal rules restrict any use of the information to criminally investigate or prosecute any alcohol or drug abuse patient.[facility]In the event this information is protected by the Federal Confidentiality of Alcohol and Drug Abuse Patient Records regulations: The Federal rules restrict any use of the information to criminally investigate or prosecute any alcohol or drug abuse patient.[facility]In the event this information is protected by the Federal Confidentiality of Alcohol and Drug Abuse Patient Records regulations: The Federal rules restrict any use of the information to criminally investigate or prosecute any alcohol or drug abuse patient.[facility] Reason for Visit (unrecogniz ed section and content) Reason Comments PT Discharge Physical Therapy Specialty Diagnoses / Procedures Referred By Viraj t Referred To Contact [facility] Diagnoses Chronic midline low back pain without sciatica Procedures CONSULT TO PHYSICAL THERAPY PHYSICAL THERAPY EVALUATION HIGH COMPLEX 45 MINS Rishi Vasquez, DO [address] [place] [address] [facility] [place] [address] [place] [address] Referral ID Status Reason Start Date Expiration Date Visits Requested Visits Authorized [id number] Authorized Auto-Generat ed Referral 11/19/2023 11/18/2024 99 99 Reason Comments Physical Therapy Reason Comments Radiology US Specialty Diagnoses / Procedures Referred By Viraj t Referred To Contact US IMAGING Diagnoses Abnormal thyroid function test Procedures US THYROID/PARATHYROID US SOFT TISSUE HEAD & NECK REAL TIME IMGE DOCM Rishi Vasquez, DO [address] [place] [address] [place] [address] Referral ID Status Reason Start Date Expiration Date V isits Requested Visits Authorized [id number] Closed Auto-Generate d Referral 12/15/2022 01/14/2024 1 [...] WITH IMAGE LIMITED Danyelle Tripp PA-C [address] [place] [address] [facility] [address] [place] [address] Referral ID Status Reason Start Date Expiration Date V isits Requested Visits Authorized [id number] Closed Auto-Generate d Referral 05/29/2023 06/27/2024 1 1 Reason Comments Radiology NM Specialty Diagnoses / Procedures Referred By Contac t Referred To Contact [facility] Diagnoses Abnormal thyroid function test Procedures NM THY UPTAKE AND SCAN THYROID [place] W/BLOOD FLOW SNGLE/MULT JAMARI NATALIA Rishi Vasquez, DO [address] [place] [address] [facility] [address] [place] [address] Referral ID Status Reason Start Date Expiration Date V isits Requested Visits Authorized [id number] Closed Auto-Generate d Referral 12/15/2022 01/14/2024 1 1 Reason Onset Date Comments Refill Request 10/03/2023 Reason Comments Radiology US Specialty Diagnoses / Procedures Referred By Contac t Referred To Contact US IMAGING Diagnoses Multiple thyroid nodules Procedures US THYROID/PARATHYROID US SOFT TISSUE HEAD & NECK REAL TIME IMGE Rishi Menon, DO [address] [place] [address] [place] [address] Referral ID Status Reason Start Date Expiration Date V isits Requested Visits Authorized [id number] Closed Auto-Generate d Referral 12/05/2023 01/03/2025 1 1 Reason Comments PT Eval Reason Onset Date Comments Refill Request 01/28/2024 Reason Comments Patient Update Reason Comments Results Reason Onset Date Comments Refill Request 03/22/2024 Reason Comments Orders Reason Comments Patient Update Reason Comments Patient Question Fish oil - Geyser 3 Reason Comments Patient Question Reason Onset Date Comments Refill Request 12/25/2024 Reason Comments HH Nursing POC Reason Comments [facility] HH PT POC Reason Comments ER F/U [facility] ED -03/20 Multiple falls, gangrene SADIE feet Reason Comments [facility] Plan of Care Reason Comments diabetic f/up Reason Comments Diabetes Reason Comments Medication Problem Reason Comments Results [facility] lab results (A1C & CMP) Care Teams (unrecognized sec tion and content) Clinical Engineer Relationship Specialty Start Date End Date Rishi Vasquez, DO [address] [place] [address] PCP - General Family Practice 03/26/13 Clinical Engineer Relationship Specialty Start Date End Date Rishi Vasquez, DO [address] [place] [address] PCP - General Family Practice 03/26/13 Clinical Engineer Relationship Specialty Start Date End Date Rishi Vasquez, DO [address] [place] [address] PCP - General Family Practice 03/26/13 Clinical Engineer Relationship Specialty Start Date End Date Rishi Vasquez, DO [address] [place] [address] PCP - General Family Practice 03/26/13 Clinical Engineer Relationship Specialty Start Date End Date Rishi Vasquez, DO [address] [place] [address] PCP - General Family Practice 03/26/13 Clinical Engineer Relationship Specialty Start Date End Date Rishi Vasquez, DO [address] [place] [address] PCP - General Family Practice 03/26/13 Clinical Engineer Relationship Specialty Start Date End Date Rishi Vasquez, DO [address] [place] [address] PCP - General Family Practice 03/26/13 Clinical Engineer Relationship Specialty Start Date End Date Rishi Vasquez, DO [address] [place] [address] PCP - General Family Practice 03/26/13 Clinical Engineer Relationship Specialty Start Date End Date Rishi Vasquez, DO [address] [place] [address] PCP - General Family Practice 03/26/13 Clinical Engineer Relationship Specialty Start Date End Date Rishi Vasquez, DO [address] [place] [address] PCP - General Family Practice 03/26/13 Clinical Engineer Relationship Specialty Start Date End Date Rishi Vasquez, DO [address] [place] [address] PCP - General Family Practice 03/26/13 Clinical Engineer Relationship Specialty Start Date End Date Rishi Vasquez, DO [address] [place] [address] PCP - General Family Medicine 03/26/13 Clinical Engineer Relationship Specialty Start Date End Date Rishi Vasquez, DO [address] [place] [address] PCP - General Family Medicine 03/26/13 Clinical Engineer Relationship Specialty Start Date End Date Rishi Vasquez, DO [address] [place] [address] PCP - General Family Medicine 03/26/13 Clinical Engineer Relationship Specialty Start Date End Date Rishi Vasquez, DO [address] [place] [address] PCP - General Family Medicine 03/26/13 Clinical Engineer Relationship Specialty Start Date End Date Rishi Vasquez, DO [address] [place] [address] PCP - General Family Medicine 03/26/13 Clinical Engineer Relationship Specialty Start Date End Date Rishi Vasquez, DO [address] [place] [address] PCP - General Family Medicine 03/26/13 Team [...] Primary Care Provider, Attend ing Provider Active Clinical Engineer Relationship Specialty Start Date End Date Rishi Vasquez DO [address] [facility] [address] PCP - General Family Medicine 03/26/13 Clinical Engineer Relationship Specialty Start Date End Date Rishi Vasquez DO [address] [facility] [place] [address] PCP - General Family Medicine 03/26/13 Clinical Engineer Relationship Specialty Start Date End Date Rishi Vasquez DO [address] [facility] [place] [address] PCP - General Family Medicine 03/26/13 Team Status: Inactive Member Role Status Dates Dr. Rishi Vasquez DO Primary Care Provider, Referr ing Provider Active Rick Bergeron POSTAL SERVICE CLERK, POSTAL SERVICE CLERK-C Attending Provider Active Clinical Engineer Relationship Specialty Start Date End Date Rishi Vasquez DO [address] [facility] [place] [place] [address] PCP - General Family Medicine 03/26/13 Clinical Engineer Relationship Specialty Start Date End Date Rishi Vasquez DO [address] [facility] [place] [place] [address] PCP - General Family Medicine 03/26/13 Clinical Engineer Relationship Specialty Start Date End Date Rishi Vasquez DO [address] [place] [address] PCP - General Family Medicine 03/26/13 Clinical Engineer Relationship Specialty Start Date End Date Rishi Vasquez DO [address] [place] [address] PCP - General Family Medicine 03/26/13 Team [...] Moscoso MD Attending Provider, Referring Provider Active Clinical Engineer Relationship Specialty Start Date End Date Rishi Vasquez DO [address] [place] [address] PCP - General Family Medicine 03/26/13 Team Status: Inactive Member Role Status Dates Dr. Rishi Vasquez DO Primary Care Provider, Referr ing Provider Active Dr. Kwaku Moscoso MD Attending Provider Active Clinical Engineer Relationship Specialty Start Date End Date Rishi Vasquez DO [address] [place] [address] PCP - General Family Medicine 03/26/13 Team Status: Inactive Member Role Status Dates Dr. Rishi Vasquez DO Primary Care Provider Active Dr. Brandon Membreno , DPM Attending Provider, Referring Provider Active Clinical Engineer Relationship Specialty Start Date End Date Rishi Vasquez DO [address] [place] [address] PCP - General Family Medicine 03/26/13 Clinical Engineer Relationship Specialty Start Date End Date Rishi Vasquez DO [address] [place] [address] PCP - General Family Medicine 03/26/13 Clinical Engineer Relationship Specialty Start Date End Date Rishi Vasquez DO [address] [place] [address] PCP - General Family Medicine 03/26/13 Clinical Engineer Relationship Specialty Start Date End Date Rishi Vasquez DO [address] [place] [address] PCP - General Family Medicine 03/26/13 Clinical Engineer Relationship Specialty Start Date End Date Rishi Vasquez DO [address] [place] [address] PCP - General Family Medicine 03/26/13 Clinical Engineer Relationship Specialty Start Date End Date Rishi Vasquez DO [address] [place] [address] PCP - General Family Medicine 03/26/13 Clinical Engineer Relationship Specialty Start Date End Date Rishi Vasquez DO [address] [place] [address] PCP - General Family Medicine 03/26/13 Clinical Engineer Relationship Specialty Start Date End Date Rishi Vasquez DO [address] [place] [address] PCP - General Family Medicine 03/26/13 Clinical Engineer Relationship Specialty Start Date End Date Rishi Vasquez DO [address] [place] [address] PCP - General Family Medicine 03/26/13 Team Status: Inactive Member Role Status Dates Dr. Rishi Vasquez DO Primary Care Provider, Referr ing Provider Active Dr. Ciaran Jacobo MD Attending Provider Active Clinical Engineer Relationship Specialty Start Date End Date Rishi Vasquez DO [address] [place] [address] PCP - General Family Medicine 03/26/13 Clinical Engineer Relationship Specialty Start Date End Date Rishi Vasquez DO [address] [place] [address] PCP - General Family Medicine 03/26/13 Clinical Engineer Relationship Specialty Start Date End Date Rishi Vasquez DO [address] [place] [address] PCP - General Family Medicine 03/26/13 Team Status: Active Member Role Status Dates Dr. Rishi Vasquez DO Primary Care Provider Active Dr. Elyssa Fierro MD Attending Provider Activ e Team Status: Inactive Member Role Status Dates Dr. Rishi Vasquez DO Primary Care Provider Active Dr. Ciaran Jacobo MD Attending Provider, Referring Provider Active Clinical Engineer Relationship Specialty Start Date End Date Rishi Vasquez DO [address] [place] [address] PCP - General Family Medicine 03/26/13 Clinical Engineer Relationship Specialty Start Date End Date Rishi Vasquez DO [address] [place] [address] PCP - General Family Medicine 03/26/13 Clinical Engineer Relationship Specialty Start Date End Date Rishi Vasquez DO [address] [place] [address] PCP - General Family Medicine 03/26/13 Clinical Engineer Relationship Specialty Start Date End Date Rishi Vasquez DO [address] [place] [address] PCP - General Family Medicine 03/26/13 Clinical Engineer Relationship Specialty Start Date End Date Rishi Vasquez DO [address] [place] [address] PCP - General Family Medicine 03/26/13 Clinical Engineer Relationship Specialty Start Date End Date Rishi Vasquez DO [address] [place] [address] PCP - General Family Medicine 03/26/13 Clinical Engineer Relationship Specialty Start Date End Date Rishi Vasquez DO [address] [place] [address] PCP - General Family Medicine 03/26/13 Clinical Engineer Relationship Specialty Start Date End Date Rishi Vasquez DO [address] [place] [address] PCP - General Family Medicine 03/26/13 Clinical Engineer Relationship Specialty Start Date End Date Rishi Vasquez DO [address] [place] [address] PCP - General Family Medicine 03/26/13 Clinical Engineer Relationship Specialty Start Date End Date Rishi Vasquez DO [address] [place] [address] PCP - General Family Medicine 03/26/13 Clinical Engineer Relationship Specialty Start Date End Date Rishi Vasquez DO [address] [place] [address] PCP - General Family Medicine 03/26/13 Clinical Engineer Relationship Specialty Start Date End Date Rishi Vasquez DO [address] [place] [address] PCP - General Family Medicine 03/26/13 Clary Andres, SUPERVISOR AGRICULTURAL EDUCATION.FOURDRINIER WIRE WEAVER [address] [place] [address] [employer] 10/26/24 Yani Watts, SUPERVISOR AGRICULTURAL EDUCATION.FOURDRINIER WIRE WEAVER [address] [place] [address] [facility] Clinical Engineer Relationship Specialty Start Date End Date Rishi Vasquez DO [address] [place] [address] PCP - General Family Medicine 03/26/13 Clary Andres, SUPERVISOR AGRICULTURAL EDUCATION.FOURDRINIER WIRE WEAVER [address] [place] [address] [employer] [facility] 10/26/24 VioletaYani, SUPERVISOR AGRICULTURAL EDUCATION.FOURDRINIER WIRE WEAVER [address] [place] [address] [facility] 10/[facility]/24 Team Status: Active Member Role Status [...] S tart: January 06, 2025 Dr. Brandon Langlois , DPM Referring Provider Active Start: January 06, [...] Referring Provider Active Start: March 07, 2025 Clinical Engineer Relationship Specialty Start Date End Date Rishi Vasquez DO [address] [facility] [address] PCP - General Family Medicine 03/26/13 [facility], SUPERVISOR AGRICULTURAL EDUCATION.FOURDRINIER WIRE WEAVER [address] [facility] [place] [address] [employer] [facility] 10/26/24 Clinical Engineer Relationship Specialty Start Date End Date Rishi Vasquez DO [address] [place] [address] PCP - General Family Medicine 03/26/13 [facility] Center[facility]ox[facility], SUPERVISOR AGRICULTURAL EDUCATION.FOURDRINIER WIRE WEAVER [address] [place] [address] [employer] [facility] 10/26/24 Clinical Engineer Relationship Specialty Start Date End Date Rishi Vasquez DO [address] [place] [address] PCP - General [facility] 03/26/13 [facility], SUPERVISOR AGRICULTURAL EDUCATION.FOURDRINIER WIRE WEAVER [address] [place] [address] [facility] 10/26/24 Team Status: Inactive Member [...] Active S tart: April 15, 2025 End: May 28th, 2025 Clinical Engineer Relationship Specialty Start Date End Date Rishi Vasquez DO [address] [place], [place] [address] PCP - General [facility] 03/26/13 [facility] Center[facility]ox[facility], SUPERVISOR AGRICULTURAL EDUCATION.FOURDRINIER WIRE WEAVER [address] [place], [place] [address] [facility] 10/26/24 Clinical Engineer Relationship Specialty Start Date End Date Rishi Vasquez DO [address] [place], [place] [address] PCP - General [facility] 03/26/13 [facility], SUPERVISOR AGRICULTURAL EDUCATION.FOURDRINIER WIRE WEAVER [address] [place], [place] [address] [facility] 10/26/24 Team Status: Inactive Member [...] Status: Active Member Role Status Dates Dr. Rihsi Vasquez DO Primary Care Provider Active Start: April 20, 2025 Dr. Russell Clement MD Attending Provider Active S tart: April 20, 2025 Team Status: Active Member Role Status Dates Dr. Rishi Vasquez DO Primary Care Provider Active Start: April 21, 2025 Dr. Rishi Vasquez DO Attending Provider Active Start: April 21, 2025 Dr. Rishi Vasquez DO Referring Provider Active Start: April 21, 2025 Clinical Engineer Relationship Specialty Start Date End Date Rishi Vasquez DO [address] [place] [address] PCP - [facility] 03/26/13 [facility], SUPERVISOR AGRICULTURAL EDUCATION.FOURDRINIER WIRE WEAVER [address] [facility] [place], [place] [address] [facility] 10/26/24 Team Status: Active Member Role Status [...] April 27, 2025 End: April 27, 2025 Clinical Engineer Relationship Specialty Start Date End Date Rishi Vasquez DO [address] [place] [address] PCP [facility] 03/26/13 [facility] Center[facility], SUPERVISOR AGRICULTURAL EDUCATION.FOURDRINIER WIRE WEAVER [address] [place] [address] [facility] 10/26/24 Team Status: Active Member Role Status [...] 2025 End: May 07, 2025 Rick Bergeron POSTAL SERVICE CLERK, POSTAL SERVICE CLERK-C Attending Provider Active S tart: May 07, 2025 End: May 07, 2025 Clinical Engineer Relationship Specialty Start Date End Date Rishi Vasquez DO [address] [place], [place] [address] PCP - General Family Medicine 03/26/13 Yani Watts APRN.FOURDRINIER WIRE WEAVER [address] [place], [place] [address] [facility] 10/26/24 Ld Artis, TAY.FOURDRINIER WIRE WEAVER [address] [place], [place] [address] [facility] 05/04/25 Team Status: Inactive Member [...] Active St art: March 10, 2025 Dr. Andera Cornejo MD Other Provider Active Start: March [...] Status: Inactive Member Role/Relationship Status Dates Dr. Rsihi Vasquez DO Primary Care Provider Active Start: March 11, 2025 End: March 20, 2025 Dr. Phong Solomon MD Admit Provider Active Star t: March 11, 2025 End: March 20, 2025 Dr. Phnog Solomon MD Attending Provider Active Start: March [...] 2025 End: May 07, 2025 Rick Bergeron POSTAL SERVICE CLERK, POSTAL SERVICE CLERK-C Attending Provider Active S tart: May 07, [...] Active Start: May 26, 2025 Dr. Wilberto Mosteller , DO Admit Provider Active Start: May [...] Start : May 28, 2025 Dr. Patel Irnee DPM Other Provider [...] Provider Active Start: May 29, 2025 Dr. Wilebrto Suazo , DO Referring Provider Active Start: [...] May 30, 2025 Dr. Michaela Joshua , Other Provider Active Start : May 30, 2025 Dr. Patel Irene , DPM Other [...] May 31, 2025 Dr. Wilberto Suazo , Referring Provider Active Start: May 31, 2025 Dr. Wilberto Suazo , DO Other Provider Active Start: May 31, 2025 Dr. Maddie Merchant MD Attending Provider Active Start: May 31, 2025 Dr. Maddie Merchant MD Other Provider Active St art: May 31, 2025 Dr. Michaela Joshua , DO Other Provider Active Start : May 31, 2025 Dr. Patel Irene DPM Other Provider Active St art: May 31, 2025 Dr. Russell Clement MD Other Provider Active Start : May 31, 2025 Team Status: Active Member Role/Relationship Status Dates Dr. Rishi Vasquez DO Primary Care Provider Active Start: June 01, 2025 Dr. Heron Wilde , DO Emergency Provider Active Start: June 01, 2025 Dr. Wilberto Suazo , DO Admit Provider Active Start: June 01, 2025 Dr. Wilberto Suazo DO Referring Provider Active Start: June 01, 2025 Dr. Wilberto Suazo DO Other Provider Active Start: June 01, 2025 Dr. Michaela Joshua , Other Provider Active Start : June 01, [...] Provider Active Start: March 11, 2025 Dr. Broedrick Dempsey MD Other Provider Active Sta rt: [...] End: May 07, 2025 Rick Bergeron NP, POSTAL SERVICE CLERK-C Attending Provider Active S tart: May 07, [...] Provider Active Start: May 18, 2025 Dr. Carols Cota MD Other Provider Active Start: May [...] May 18, 2025 Dr. Lavell Rodriges , DO Other [...] Start: May 22, 2025 Dr. Wilberto Suazo DO Admit Provider Active Start: May 22, [...] 01, 2025 Dr. Wilberto Suazo , DO Referring [...] art: May 25, 2025 Dr. Michaela Joshua DO Other Provider [...] Provider Active Start: May 27, 2025 Dr. Wilbreto Suazo , DO Admit Provider Active Start: [...] May 28, 2025 Dr. Wilberto Suazo , Admit Provider Active Start: May 28, 2025 [...] Active Start: May 29, 2025 Dr. Wilberto Mosteller , DO Admit Provider Active Start: May [...] May 30, 2025 Dr. Michaela Joshua , Other Provider Active Start : May 30, 2025 Dr. Patel Ierne DPM Other Provider Active St art: May 30, 2025 Dr. Russell Clement MD Other Provider Active Start : May 30, 2025 Team Status: Active Member Role/Relationship Status Dates Dr. Rishi Vasquez DO Primary Care Provider Active Start: May 31, 2025 Dr. Heron Wilde , Emergency Provider Active Start: May 31, 2025 Dr. Wilberto Suazo , Admit Provider Active Start: May 31, 2025 Dr. Wilberto Suazo DO Referring Provider Active Start: May 31, 2025 Dr. Wilberto Suazo DO Other Provider Active Start: May 31, 2025 Dr. Maddie Merchant MD Attending Provider Active Start: May 31, 2025 Dr. Maddie Merchant MD Other Provider Active St art: May 31, 2025 Dr. Michaela Joshua , DO Other Provider Active Start : May 31, 2025 Dr. aPtel Irene DPM Other Provider Active St art: May 31, 2025 Dr. Russell Clement MD Other Provider Active Start : May 31, 2025 Team Status: Active Member Role/Relationship Status Dates Dr. Rishi Vasquez DO Primary Care Provider Active Start: June 01, 2025 Dr. Heron Wilde , DO Emergency Provider Active Start: June 01, 2025 Dr. Wilberto Suazo DO Admit Provider Active Start: June 01, 2025 Dr. Wilberto Suazo DO Referring Provider Active Start: June 01, 2025 Dr. Wilberto Suazo DO Other Provider Active Start: June 01, 2025 Dr. Michaela Joshua , Other Provider Active Start : June 01, [...] Active Star t: June 04, 2025 Dr. aPtel Irene DPM Other Provider [...] Active Start: May 27, 2025 Dr. Wilberto Sauzo , DO Other Provider Active Start: May [...] May 30, 2025 Dr. Michaela Joshua , Other Provider Active Start : May 30, 2025 Dr. Patel Irene DPM Other Provider Active St art: May 30, 2025 Dr. Russell Clement MD Other Provider Active Start : May 30, 2025 Team Status: Inactive Member Role/Relationship Status Dates Dr. Rishi Vasquez DO Primary Care Provider Active Start: June 11, 2025 End: June 11, 2025 Dr. Shahnaz Bishop , DO Emergency Provider Active Start: June 11, 2025 End: June 11, 2025 Team Status: Active Member Role/Relationship Status Dates Dr. Rishi Vasquez DO Primary Care Provider Active Start: May 19, 2025 Dr. Jerri Castillo , Referring Provider Active S tart: May 19, [...] 01, 2025 Dr. Wilberto Suazo , DO Referring [...] May 27, 2025 Dr. Wilberto Suazo , Admit Provider Active Start: May 27, 2025 [...] May 28, 2025 Dr. Wilberto Suazo , Referring Provider Active Start: May 28, 2025 [...] May 29, 2025 Dr. Wilberto Suazo , Referring Provider Active Start: May 29, 2025 Dr. Wilebrto Suazo , DO Other Provider Active Start: [...] May 30, 2025 Dr. Heron Wilde , Emergency Provider Active Start: May 30, 2025 [...] Start: June 01, 2025 Dr. Heron Wilde , Emergency Provider Active Start: June 01, 2025 [...] Referring Provider Active Start: June 16, 2025 Clinical Engineer Relationship Specialty Start Date End Date Rishi Vasquez DO [address] [place], [place] [address] PCP - General Family Medicine 03/26/13 Yani Watts, SUPERVISOR AGRICULTURAL EDUCATION.FOURDRINIER WIRE WEAVER [address] [place], [place] [id number] [facility] 10/26/24 Ld Artis, SUPERVISOR AGRICULTURAL EDUCATION.FOURDRINIER WIRE WEAVER [address] [place], [place] [id number] [facility] 05/04/25 Team Status: Inactive Member Role/Relationship Status [...] March 11, 2025 Dr. Esteban Becker , Emergency Provider Active Start : March 11, [...] Inactive Member Role/Relationship Status Dates Dr. Rishi Vasuqez DO Primary Care Provider Active Start: April [...] End: May 07, 2025 Rick Bergeron NP, POSTAL SERVICE CLERK-C Attending Provider Active S tart: May 07, [...] Start: May 22, 2025 Dr. Heron Wilde DO Emergency Provider Active Start: May 22, 2025 Dr. Wilberto Mosteller , DO Admit Provider Active Start: May [...] 2025 End: June 01, 2025 Dr. Heron Wlide , DO Emergency Provider Active Start: May 25, 2025 End: June 01, 2025 Dr. Wilberto Suazo , DO Admit Provider Active Start: May 25, 2025 End: June 01, 2025 Dr. Wilberto Suazo , DO Referring [...] art: May 25, 2025 Dr. Michaela Joshua DO Other Provider [...] May 27, 2025 Dr. Heron Wilde , Emergency Provider Active Start: May 27, 2025 [...] 2025 End: May 07, 2025 Rick Bergeron POSTAL SERVICE CLERK, POSTAL SERVICE CLERK-C Attending Provider Active S tart: May 07, [...] May 21, 2025 Dr. Jerri Castillo , Referring Provider Active S tart: May 18, [...] Active Member Role/Relationship Status Dates Dr. Rishi Vasuqez DO Primary Care Provider Active Start: May 18, 2025 Dr. Jerri Castillo , Referring Provider Active S tart: May 18, 2025 Dr. Jerri Castillo , Emergency Provider Active S tart: May 18, [...] Provider Active Sta rt: May 19, 2025 ELVA ArtisM Other Provider Active St art: May 19, [...] Active Start: May 25, 2025 Dr. Wilberto Mosteller , DO Admit Provider Active Start: May [...] Active St art: May 26, 2025 Dr. Rusesll Clement MD Other Provider [...] May 29, 2025 Dr. Wilberto Suazo , Referring Provider Active Start: May 29, 2025 [...] 2025 LILLIAM Gilmore Other Provider Active Start: [facility] 2024 End: June 30, 2025 Team Status: [...] Star t: June 19, 2025 Dr. Phong Solomon MD Other Provider [...] Active Start: A ugust 2024 Team Status: Inactive Member Role/Relationship Status Dates Dr. Rishi Vasquez DO Primary Care Provider Active Start: June 30, 2025 End: June 30, 2025 Dr. Russell Clement MD Admit Provider Active Start : June 30, 2025 End: June 30, 2025 Dr. Russell Clement MD Attending Provider Active S tart: June 30, 2025 End: June 30, 2025 Dr. Russell Clement MD Referring Provider Active S tart: June 30, 2025 End: June 30, 2025 Team Status: Active Member Role/Relationship Status Dates Dr. Rishi Vasquez DO Primary Care Provider Active Start: June 30, 2025 Dr. Russell Clement MD Admit Provider Active Start : June 30, 2025 Dr. Russell Clement MD Referring Provider Active S tart: June 30, 2025 Dr. Russell Clement MD Other Provider Active Start : June 30, 2025 Dr. Kwaku Tierney MD Attending Provider Active Start: June 30, 2025 Team Status: Active Member Role/Relationship Status Dates Dr. Rishi Vasquez DO Primary Care Provider Active Start: June 30, 2025 Dr. Russell Clement MD Admit Provider Active Start : June 30, 2025 Dr. Russell Clement MD Attending Provider Active S tart: June 30, 2025 Dr. Russell Clement MD Referring Provider Active S tart: June 30, 2025 Dr. Russell Clement MD Other Provider Active Start : June 30, 2025 Clinical Engineer Relationship Specialty Start Date End Date Rishi Vasquez DO [address] [place], [place] [id number] PCP - General Family Medicine 03/26/13 Yani Watts, SUPERVISOR AGRICULTURAL EDUCATION.FOURDRINIER WIRE WEAVER [address] [place], [place] [id number] [facility] 10/26/24 Ld Artis, SUPERVISOR AGRICULTURAL EDUCATION.FOURDRINIER WIRE WEAVER [address] [place], [place] [id number] [facility] 05/04/25 Team Status: Inactive Member Role/Relationship Status [...] End: May 07, 2025 Rick Bergeron NP, POSTAL SERVICE CLERK-C Attending Provider Active S tart: May 07, [...] May 21, 2025 Dr. Jerri Castillo , Referring Provider Active S tart: May 18, [...] , Primary Care Provider Active Start: May 20, [...] St art: May 21, 2025 Dr. Russell Clmeent MD Other Provider [...] May 24, 2025 Dr. Wilberto Suazo , Admit Provider Active Start: May 24, 2025 [...] June 01, 2025 Dr. Heron Wilde , Emergency Provider Active Start: May 25, 2025 [...] Start: May 25, 2025 Dr. Patel Irene , DPM Other [...] Provider Active Start: May 28, 2025 Dr. Mdadie Merchant MD Other Provider [...] Other Provider Active Start: June 01, 2025 LILLIAM Gilmore Other Provider Active Start: [facility]2024 Team Status: Active Member Role/Relationship Status Dates [...] Star t: June 19, 2025 Dr. Phong Solomon MD Other Provider [...] Active Start: A ugust 2024 Team Status: Inactive Member Role/Relationship Status Dates Dr. Rishi Vasquez DO Primary Care Provider Active Start: June 30, 2025 End: June 30, 2025 Dr. Russell Clement MD Attending Provider Active S tart: June 30, 2025 End: June 30, 2025 Dr. Russell Clement MD Referring Provider Active S tart: June 30, 2025 End: June 30, 2025 Team Status: Active Member Role/Relationship Status Dates Dr. Rishi Vasquez DO Primary Care Provider Active Start: June 30, 2025 Dr. Russell Clement MD Admit Provider Active Start : June 30, 2025 Dr. Russell Clement MD Referring Provider Active S tart: June 30, 2025 Dr. Russell Clement MD Other Provider Active Start : June 30, 2025 Dr. Kwaku Tierney MD Attending Provider Active Start: June 30, 2025 Team Status: Active Member Role/Relationship Status Dates Dr. Rishi Vasquez DO Primary Care Provider Active Start: June 30, 2025 Dr. Russell Clement MD Admit Provider Active Start : June 30, 2025 Dr. Russell Clement MD Attending Provider Active S tart: June 30, 2025 Dr. Russell Clement MD Referring Provider Active S tart: June 30, 2025 Dr. Russell Clement MD Other Provider Active Start : June 30, 2025 Team Status: Active Member Role/Relationship Status Dates Dr. Rishi Vasquez DO Primary Care Provider Active Start: July 09, 2025 Dr. Russell Clement MD Attending Provider Active S tart: July 09, 2025 Dr. Russell Clement MD Referring Provider Active S tart: July 09, 2025 Team Status: Inactive Member Role/Relationship Status Dates Dr. Rishi Vasquez DO Primary Care Provider Active Start: July 10, 2025 End: July 10, 2025 Dr. Rishi Vasquez DO Referring Provider Active Start: July 10, 2025 End: July 10, 2025 Fernando Vogel MD Attending Provider Active St art: July 10, 2025 End: July 10, 2025 INFORMATION SOURCE (unrecogn ized section and content) DATE CREATED AUTHOR 07/02/2025 [facility] DATE CREATED AUTHOR AUTHOR'S ORGANIZ ATION 07/13/2025 [facility] FOR RECORDS PERTAINING TO PATIENTS WHO [...] BE BASED ON THE PRIMARY CLINICAL RECORDS. [employer] [facility]. provides no warranty or guarantee of the accuracy or completeness of information in this document.
--- NOTE | 2025-07-13 19:22 | POSTOPAN2_ITS ---
Anesthesia Postop Eval I Sum Postop Eval Completion status Anesthesia document: Postop Eval 1 completed: Yes Anesthesia Postop Eval I Summary Anesthesia Postop Eval I Summary: Anesthesia Postop Eval I: Assessment Summary Airway patent Yes 07/13/25 17:41 PROCESS VALIDATION ENGINEER.TNES Spontaneous unlabored Yes 07/13/25 17:41 PROCESS VALIDATION ENGINEER.TNES respirations Mental status nausea No 07/13/25 17:41 PROCESS VALIDATION ENGINEER.TNES Vomiting No 07/13/25 17:41 PROCESS VALIDATION ENGINEER.TNES Anesthesia Postop Eval I: Fluid Summary Crystalloid volume administer 500 07/13/25 17:41 PROCESS VALIDATION ENGINEER.TNES (ml) Colloids volume administered ( ml) Blood Product volume administered (ml) Total IV fluid infused 500 07/13/25 17:41 PROCESS VALIDATION ENGINEER.TNES Anesthesia Postop Eval I: Summary Notes Anesthesia Complication No 07/13/25 17:41 PROCESS VALIDATION ENGINEER.TNES Anesthesia Complication Comment: Post-operative progress note Anesthesia: Postop Eval II Evaluation Mental status: Awake Pain Level: 0 nausea: No Vomiting: No Complications Anesthesia Complication: No
--- NOTE | 2025-07-13 19:22 | PCM.POSTANE2 ---
Anesthesia Postop Eval I Sum Postop Eval Completion status Anesthesia document: Postop Eval 1 completed: Yes Anesthesia Postop Eval I Summary Anesthesia Postop Eval I Summary: Anesthesia Postop Eval I: Assessment Summary Airway patent Yes 07/13/25 17:41 DIRECTOR OF CUSTOMER SERVICE.TNES Spontaneous unlabored Yes 07/13/25 17:41 DIRECTOR OF CUSTOMER SERVICE.TNES respirations Mental status nausea No 07/13/25 17:41 DIRECTOR OF CUSTOMER SERVICE.TNES Vomiting No 07/13/25 17:41 DIRECTOR OF CUSTOMER SERVICE.TNES Anesthesia Postop Eval I: Fluid Summary Crystalloid volume administer 500 07/13/25 17:41 DIRECTOR OF CUSTOMER SERVICE.TNES (ml) Colloids volume administered ( ml) Blood Product volume administered (ml) Total IV fluid infused 500 07/13/25 17:41 DIRECTOR OF CUSTOMER SERVICE.TNES Anesthesia Postop Eval I: Summary Notes Anesthesia Complication No 07/13/25 17:41 DIRECTOR OF CUSTOMER SERVICE.TNES Anesthesia Complication Comment: Post-operative progress note Anesthesia: Postop Eval II Evaluation Mental status: Awake Pain Level: 0 nausea: No Vomiting: No Complications Anesthesia Complication: No
== END 2025-07-13 17:23 | disposition home or self-care (01) ==
LOC: EN 16:02 → AC 16:03
PROVIDERS: PCP Student in an Organized Health Care Education/Training Program; Referring Provider Student in an Organized Health Care Education/Training Program; Visit Provider Internal Medicine Gastroenterology
PROC: 0DJD8ZZ Inspection of Lower Intestinal Tract, Via Natural or Artificial Opening Endoscopic (ICD-10-PCS; CPT 45378; principal; 2025-07-13 17:40)
DX: D50.9 Iron deficiency anemia, unspecified (principal); E11.22 Type 2 diabetes mellitus with diabetic chronic kidney disease; E11.42 Type 2 diabetes mellitus with diabetic polyneuropathy; N18.30 Chronic kidney disease, stage 3 unspecified; I73.9 Peripheral vascular disease, unspecified; I12.9 Hypertensive chronic kidney disease with stage 1 through stage 4 chronic kidney disease, or unspecified chronic kidney disease; K55.9 Vascular disorder of intestine, unspecified; Z79.899 Other long term (current) drug therapy; E78.00 Pure hypercholesterolemia, unspecified; I25.10 Atherosclerotic heart disease of native coronary artery without angina pectoris; R53.1 Weakness; Z87.891 Personal history of nicotine dependence; Z82.49 Family history of ischemic heart disease and other diseases of the circulatory system; K57.30 Diverticulosis of large intestine without perforation or abscess without bleeding; K63.5 Polyp of colon; Z79.02 Long term (current) use of antithrombotics/antiplatelets; Z86.14 Personal history of Methicillin resistant Staphylococcus aureus infection; D12.0 Benign neoplasm of cecum
CPT/HCPCS: 45382; 45380; 88305

== ENCOUNTER 2025-07-21 09:46 | Outpatient (RCR) | payer SELFPAY | END 2025-08-18 23:59 | LOC: CR 09:46 | PROVIDERS: PCP Student in an Organized Health Care Education/Training Program; Referring Provider Student in an Organized Health Care Education/Training Program; Visit Provider Student in an Organized Health Care Education/Training Program | DX: Z00.00 Encounter for general adult medical examination without abnormal findings (principal) ==

== ENCOUNTER → 2025-07-21 | Outpatient (CLI) | payer MEDICARE, SELFPAY ==
--- NOTE | 2025-07-21 14:55 | VDUE_ITS ---
Reason For Study Reason For Study: RUE Swelling Right Proximal Right jugular vein is spontaneous, widely patent, phasic, with no intraluminal echogenicity noted. Right subclavian vein is spontaneous, widely patent, phasic, with no intraluminal echogenicity noted. Right Lower Arm Right radial vein is compressible. Right ulnar vein is compressible. Right Arm Right axillary vein is spontaneous, patent, phasic, competent, compressible and demonstrates augmentation. Right brachial vein is compressible. Right cephalic vein is compressible. Right basilic vein is compressible. PICC Line visualized in Rt Subclavian - Axillary and Basilic Vein. Procedure This was a unilateral right upper extremity venous doppler examination. Exam performed portable in patient room. A preliminary report was called and/or faxed to [facility]. VL/Venous Duplex US, Unilateral Interpretation Summary Deep veins of the right upper extremity are patent and compressible segmentally . There is no evidence of deep vein thrombosis. The superficial veins of the right upper extremity, the basilic and cephalic veins, are patent and compressible. There is no evidence of right upper extremity superficial thrombo phlebitis involving the veins imaged. A PICC line is noted intravenously. Ordering Physician: Phong Al Chi Referring Physician: Rishi Vasquez Performed By: Tigre Tatum RVT ???
== END | disposition home or self-care (01) ==
PROVIDERS: PCP Student in an Organized Health Care Education/Training Program; Referring Provider Family Medicine Geriatric Medicine; Visit Provider Family Medicine Geriatric Medicine
DX: R22.31 Localized swelling, mass and lump, right upper limb (principal)
CPT/HCPCS: 93971

== ENCOUNTER 2025-07-31 13:47 | Day surgery (SDC) | payer MEDICARE, SELFPAY ==
--- NOTE | 2025-07-30 16:02 | PAT.ANESEVAL ---
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 When Was Last Pacemaker Check QUESTION #4 FULL TEXT: You/Your Family Experience fever (hyperthermia) with Anesthesia Last Oral Intake Last Oral intake: Last Oral Intake NPO since Meds taken in AM with sips of water? 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 Has anyone observed you stop No 07/30/25 15:29 breathing during sleep? STOP Results Negative 07/30/25 15:29 QUESTION #5 FULL TEXT : Do you snore loudly (louder than talking or can be heard through closed doors)? 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 Specify any problems Hx of Preganancy in last 3 N/A 07/30/25 15:29 Months Nurse Filling Out Transfusion NBUCHER 07/30/25 15:29 & Questions: Date: 07/30/25 07/30/25 15:29 Time: 15:31 07/30/25 15:29 Patient unable to answer at this time (ie. 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 Hx Now Gestational Age (in weeks): EDC: Hx Hx Para Hx Section SAB No 07/30/25 15:29 PFS Medical History (Updated 07/30/25 @ 15:38 by Irena Jose) History of Holter monitoring History of stress test History of GI bleed Right rotator cuff tear arthropathy Right shoulder pain Non-pressure chronic ulcer of other part of right foot with fat layer exposed 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 foot with fat layer exposed Type 2 diabetes mellitus with foot ulcer History of MRSA infection Pressure ulcer Ambulates with cane Shortness of breath on exertion History of edema History of echocardiogram Fall 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 Other specified peripheral vascular diseases Chronic painful diabetic polyneuropathy Anemia MRSA (methicillin resistant staph aureus) culture positive Diabetes Back pain Vertigo History of pain when walking Hypertension Arthritis Wears dentures Post-menopausal Low iron High cholesterol Easy bruising Neuropathy Dietary restriction Former smoker Cardiology follow-up encounter History of torn meniscus of left knee Carotid artery stenosis Essential hypertension Skin lesion Hammer toe of left foot Osteomyelitis Chronic kidney disease, stage 3 Atherosclerosis of coronary artery of [place] heart without angina pectoris Hyperlipidemia Peripheral vascular occlusive disease Hammer toe of second toe of left foot Hallux valgus (acquired), right foot Healed ulcer of left foot on examination Chronic ulcer of left foot with fat layer exposed Delayed wound healing Malnutrition Osteomyelitis of foot 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 Methicillin resistant Staphylococcus aureus infection Chronic osteomyelitis of left foot Non-healing ulcer of right foot DM2 (diabetes mellitus, type 2) Home Medications ?Medication ?Instructions ?Recorded ?Last Taken ?Type ferrous sulfate 325 mg (65 mg 325 mg PO DAILY SUPPLEMENT 08/15/18 07/12/25 History iron) tablet ascorbic acid (vitamin C) 500 mg 1,000 mg PO LUNCH Supplement 11/25/20 06/01/25 12:50 History tablet clopidogrel 75 mg tablet 75 mg PO DAILY Blood clots #90 tabs 10/23/24 07/12/25 Rx glimepiride 2 mg tablet 1 mg PO DAILY Diabetes 05/18/25 07/11/25 History metoprolol succinate 25 mg 6.25 mg PO DAILY HEART RATE 07/13/25 07/12/25 History tablet,extended release 24 hr acetaminophen 500 mg tablet 1,000 mg (2 x 500 mg) PO Q6H PRN 07/27/25 Unknown Rx PRN Pain Score 1-5 #0 tabs atorvastatin 10 mg tablet 10 mg PO QHS 30 days #30 tabs 07/27/25 Unknown Rx calcium carbonate 500 mg (2.5 x 200 mg calcium (500 07/27/25 Unknown Rx mg)) PO DAILYCM #0 tabs pantoprazole 40 mg tablet,delayed 40 mg PO BID 30 days #60 tabs 07/27/25 Unknown Rx release pregabalin 100 mg capsule 100 mg PO TID 30 days #90 caps 07/28/25 Unknown Rx peg 3350-electrolytes 236 240 ml PO Q10M #4,000 mL 07/30/25 Unknown Rx gram-22.74 gram-6.74 gram-5.86 gram solution (Golytely) Allergy/AdvReac Type Severity Reaction Status Date / Time Sulfa (Sulfonamide Allergy Unknown Verified 07/30/25 15:26 Antibiotics) Family History Father CAD (coronary artery disease) Heart disease Hypertension CVA (cerebral vascular accident) Mother COPD (chronic obstructive pulmonary disease) Hypertension Heart disease Heart failure Surgical History History of cardiac catheterization History of colonoscopy History of foot surgery History of repair of left rotator cuff History of total left knee replacement (~2014) History of angioplasty of peripheral vessel (~2012) amputation left toe History of left heart catheterization (~01/20/14) Social History household members: none Smoking Status: Former smoker how long ago did patient quit smokin years ago alcohol intake: never substance use type: does not use caffeine: No Audit: Pertinent Findings Pertinent Findings EKG Perinent findings: 05/22/2025. Normal sinus rhythm. Septal infarct, age undetermined. Stress test pertinent findings: May 08, 2025. EF of 55%. Resting hypoperfusion of the inferior lateral wall is consistent with nontransmural infarct with the mild will-infarct ischemia. Echo (EF%) pertinent findings: March 11, 2024. EF is 60%. No aortic stenosis. Consult pertinent findings: May 14, 2025. Rubio COMPUTER VIDEO GAME DESIGNER-C. Stress is noted. Patient is cleared for procedure May 07, 2025. Rubio COMPUTER VIDEO GAME DESIGNER-C. 1. Systolic murmur-last echo in February 2024 showed no hemodynamically significant valvular disease. Trivial MR seems to be stable. Continue current medical therapy. Continue to monitor. 2. Hypertension?well-controlled. 3. Atherosclerosis of the coronary arteries without angina-history of totally occluded RCA. Stable. Continue to monitor. 4 preop cardiovascular exam-activity is very limited. Will check nuclear stress test. (See above) Recommendation Anesthesia Recommendation Anesthesia recommendation: OPTIMIZED for anesthesia
[2025-07-31] VITALS (8 sets, daily range): BP systolic 100–162; BP diastolic 41–68; PULSE 63–99; RESP 16–18; TEMP 36.1–36.6; O2SAT 65–100; BMI 26.8
--- NOTE | 2025-07-31 14:16 | PRE.ANES_ITS ---
ASA Classification* ASA Classification ASA Classification: 2 Assessment & Plan Anesthesia* Anesthesia Assessment Anesthesia Assessment: Discussed sedation and/or anesthesia options, risks, benefits, and alternatives with patient/parents/legal guardian/POA. Questions invited. The patient/parents/legal guardian/POA seems to understand and agrees to proceed with anesthesia plan. Reviewed the physical assessment, medical history, allergy history and patient home medications list prior to surgery/procedure/anesthetic and documented any changes. Performed airway and anesthesia risk assessments. Anesthesia Type Anesthesia Type: MAC Anesthesia Focused Assessment* Airway Assessment Mouth opens: >3 cm Mallampati Score: II Labs Anesthesia Preop lab: CBC WBC 5.1 K/mm3 (4.4-11.0) 07/29/25 07:52 07/29/25 RBC 3.39 M/mm3 (4.2-5.4) L 07/29/25 07:52 07/29/25 Hgb 10.5 g/dL (12.0-15.0) L 07/29/25 12:55 5 Hct 32.9 % (37-47) L 07/29/25 12:55 07/29/25 Plt Count 122 K/mm3 (150-450) L 07/29/25 07:52 07/29/25 CHEMISTRY Potassium 3.9 mmol/L (3.3-5.1) 07/29/25 07:52 07/29/25 Sodium 143 mmol/L (133-145) 07/29/25 07:52 07/29/25 Magnesium 1.8 mg/dL (1.5-2.2) 06/11/25 09:06/11/25 Phosphorus 3.5 mg/dL (2.7-4.5) 06/01/25 10:07 06/01/25 BUN 45 mg/dL (4-19) H 07/29/25 07:52 07/29/25 Creatinine 1.26 mg/dL (0.70-1.20) H 07/29/25 07:52 Glucose 121 mg/dL (70-99) H 07/29/25 07:52 07/29/25 POC Glucose 103 mg/dL (74-106) 07/30/25 06:03 07/30/25 TSH < 0.01 uIU/mL (0.358-3.74) L 02/07/17 09:38 COAG PT 14.5 SECONDS (11.7-14.9) 05/27/25 03:05 Pre-Assessment Diagnosis/Proposed Procedure Planned Operative Procedure(s): CSCOPE Anesthesia History 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 When Was Last Pacemaker Check QUESTION #4 FULL TEXT: You/Your Family Experience fever (hyperthermia) with Anesthesia Last Oral Intake Last Oral intake: Last Oral Intake NPO since Meds taken in AM with sips of water? Meds patient instructed to take am of surgery PONV PONV - disease management nurse: PONV - disease management nurse Female Yes 07/30/25 15:29 HX of Motion Sickness No 07/30/25 15:29 HX of N/V After Surgery No 07/30/25 15:29 Non-Smoker Yes 07/30/25 15:29 Duration of Surgery greater No 07/30/25 15:29 than 60 minutes Number of Risk Factors 2 07/30/25 15:29 PONV Score Moderate Risk 07/30/25 15:29 Height & Weight Height & Weight: Anesthesia: Height & Weight Height 5 ft 6 in 06/30/25 06:09 Respiratory Assessment Respiratory Assessment - disease management nurse: Respiratory Tract Infection Hx - disease management nurse Hx Respiratory Tract Infection No 07/30/25 15:29 STOP Sleep Apnea STOP Sleep Apnea - disease management nurse: STOP Sleep Apnea - disease management nurse Hx Hypertension Yes: on meds 07/30/25 15:29 Hx Sleep Apnea No 07/30/25 15:29 CPAP No 07/30/25 15:29 BIPAP No 07/30/25 15:29 Do you snore loudly (louder No 07/30/25 15:29 than talking or can be heard Do you often feel tired/ No 07/30/25 15:29 fatigued/ sleepy during daytime? Has anyone observed you stop No 07/30/25 15:29 breathing during sleep? STOP Results Negative 07/30/25 15:29 QUESTION #5 FULL TEXT : Do you snore loudly (louder than talking or can be heard through closed doors)? 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 Specify any problems Hx of Preganancy in last 3 N/A 07/30/25 15:29 Months Nurse Filling Out Transfusion NBUCHER 07/30/25 15:29 & Questions: Date: 07/30/25 07/30/25 15:29 Time: 15:31 07/30/25 15:29 Patient unable to answer at this time (ie. confused, unrespo /Reproduction History /Reproductive History - disease management nurse: /Reproductive Hx- disease management nurse Hx Now Gestational Age (in weeks): EDC: Hx Hx Para Hx Section SAB No 07/30/25 15:29 Active Medications Active Medications: Current Medications Generic Name Dose Route Start Last Admin Trade Name Freq PRN Reason Stop Dose Admin Lactated Ringer's 1,000 mls @ 15 mls/hr 07/31/25 14:00 IV .Q48H HADLEY PFSH Medical History (Updated 07/30/25 @ 15:38 by Irena Jose) History of Holter monitoring History of stress test History of GI bleed Right rotator cuff tear arthropathy Right shoulder pain Non-pressure chronic ulcer of other part of right foot with fat layer exposed 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 foot with fat layer exposed Type 2 diabetes mellitus with foot ulcer History of MRSA infection Pressure ulcer Ambulates with cane Shortness of breath on exertion History of edema History of echocardiogram Fall 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 heart without angina pectoris Hyperlipidemia Peripheral vascular occlusive disease Hammer toe of second toe of left foot Hallux valgus (acquired), right foot Healed ulcer of left foot on examination Chronic ulcer of left foot with fat layer exposed Delayed wound healing Malnutrition Osteomyelitis of foot 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 Methicillin resistant Staphylococcus aureus infection Chronic osteomyelitis of left foot Non-healing ulcer of right foot DM2 (diabetes mellitus, type 2) Home Medications ?Medication ?Instructions ?Recorded ?Last Taken ?Type ferrous sulfate 325 mg (65 mg 325 mg PO DAILY SUPPLEME NT 08/15/18 07/12/25 History iron) tablet ascorbic acid (vitamin C) 500 mg 1,000 mg PO LUNCH Sup plement 11/25/20 06/01/25 12:50 History tablet clopidogrel 75 mg tablet 75 mg PO DAILY Blood clots # 90 tabs 10/23/24 07/12/25 Rx glimepiride 2 mg tablet 1 mg PO DAILY Diabetes 05/1807/11/25 History metoprolol succinate 25 mg 6.25 mg PO DAILY HEART RATE 07/13/25 07/12/25 History tablet,extended release 24 hr acetaminophen 500 mg tablet 1,000 mg (2 x 500 mg) PO Q 6H PRN 07/27/25 Unknown Rx PRN Pain Score 1-5 #0 tabs atorvastatin 10 mg tablet 10 mg PO QHS 30 days #30 tab s 07/27/25 Unknown Rx calcium carbonate 500 mg (2.5 x 200 mg calcium (500 07/27/25 Unknown Rx mg)) PO DAILYCM #0 tabs pantoprazole 40 mg tablet,delayed 40 mg PO BID 30 days #60 tabs 07/27/25 Unknown Rx release pregabalin 100 mg capsule 100 mg PO TID 30 days #90 ca ps 07/28/25 Unknown Rx peg 3350-electrolytes 236 240 ml PO Q10M #4,000 mL 10/13 Unknown Rx gram-22.74 gram-6.74 gram-5.86 gram solution (Golytely) Allergy/AdvReac Type Severity Reaction Status Date / Time Sulfa (Sulfonamide Allergy Unknown Verified 07/30/25 15:26 Antibiotics) Family History Father CAD (coronary artery disease) Heart disease Hypertension CVA (cerebral vascular accident) Mother COPD (chronic obstructive pulmonary disease) Hypertension Heart disease Heart failure Surgical History History of cardiac catheterization History of colonoscopy History of foot surgery History of repair of left rotator cuff History of total left knee replacement (~2014) History of angioplasty of peripheral vessel (~2012) amputation left toe History of left heart catheterization (~01/20/14) Social History household members: none Smoking Status: Former smoker how long ago did patient quit smokin years ago alcohol intake: never substance use type: does not use caffeine: No Review of Systems (Anesthesia) ROS Narrative System reviewed and no additional complaints, except as documented.
[2025-07-31] MEDS: Lactated Ringers 1,000 ML 15 ML IV (14:31)
--- NOTE | 2025-07-31 14:58 | HP.PCM_ITS ---
[facility] - General General Date of Admission: 07/31/25 Date of Service: 07/31/25 Chief Complaint: Lower GI bleeding HPI Narrative KIMBERLY NEWMAN, is a 75-year-old lady with past medical history signal for PAD with previous angioplasty, diabetes mellitus type 2,Recent debridement of surgical debridement of chronic bilateral lower extremity DFU's admitted with progressive generalized weakness she also has a history of bilateral lower extremity ulcerations and wounds in setting of severe peripheral vascular disease and diabetes. She had a skin graft done on 05 20. She developed peripheral vascular disease in her arteries and veins. She underwent left femoral endarterectomy along with left [place]ond peroneal bypass with left sartorius flap on 05/26/2025. Since being in the TCU she has had a drop in her hemoglobin. She has baseline anemia chronic disease but she has been also having some abdominal pain. [facility] Medical History History of Holter monitoring History of stress test History of GI bleed Right rotator cuff tear arthropathy Right shoulder pain Non-pressure chronic ulcer of other part of right foot with fat layer exposed 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 foot with fat layer exposed Type 2 diabetes mellitus with foot ulcer History of MRSA infection Pressure ulcer Ambulates with cane Shortness of breath on exertion History of edema History of echocardiogram Fall 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 Atherosclerosis of [place] artery of both lower extremities with gangrene Other specified peripheral vascular diseases Chronic painful diabetic polyneuropathy Anemia MRSA (methicillin resistant staph aureus) culture positive Diabetes Back pain Vertigo History of pain when walking Hypertension Arthritis Wears dentures Post-menopausal Low iron High cholesterol Easy bruising Neuropathy Dietary restriction Former smoker Cardiology follow-up encounter History of torn meniscus of left knee Carotid artery stenosis Essential hypertension Skin lesion Hammer toe of left foot Osteomyelitis Chronic kidney disease, stage 3 Atherosclerosis of coronary artery of the [place] heart without angina pectoris Hyperlipidemia Peripheral vascular occlusive disease Hammer toe of second toe of left foot Hallux valgus (acquired), right foot Healed ulcer of left foot on examination Chronic ulcer of left foot with fat layer exposed Delayed wound healing Malnutrition Osteomyelitis of foot 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 Methicillin resistant Staphylococcus aureus infection Chronic osteomyelitis of left foot Non-healing ulcer of right foot DM2 (diabetes mellitus, type 2) Home Medications ?Medication ?Instructions ?Recorded ?Last Taken ?Type ferrous sulfate 325 mg (65 mg 325 mg PO DAILY SUPPLEME NT 08/15/18 07/12/25 History iron) tablet ascorbic acid (vitamin C) 500 mg 1,000 mg PO LUNCH Sup plement 11/25/20 06/01/25 12:50 History tablet clopidogrel 75 mg tablet 75 mg PO DAILY Blood clots # 90 tabs 10/23/24 07/12/25 Rx glimepiride 2 mg tablet 1 mg PO DAILY Diabetes 05/1807/11/25 History metoprolol succinate 25 mg 6.25 mg PO DAILY HEART RATE 07/13/25 07/12/25 History tablet,extended release 24 hr acetaminophen 500 mg tablet 1,000 mg (2 x 500 mg) PO Q 6H PRN 07/27/25 Unknown Rx PRN Pain Score 1-5 #0 tabs atorvastatin 10 mg tablet 10 mg PO QHS 30 days #30 tab s 07/27/25 Unknown Rx calcium carbonate 500 mg (2.5 x 200 mg calcium (500 07/27/25 Unknown Rx mg)) PO DAILYCM #0 tabs pantoprazole 40 mg tablet,delayed 40 mg PO BID 30 days #60 tabs 07/27/25 Unknown Rx release pregabalin 100 mg capsule 100 mg PO TID 30 days #90 ca ps 07/28/25 Unknown Rx peg 3350-electrolytes 236 240 ml PO Q10M #4,000 mL 10/13 Unknown Rx gram-22.74 gram-6.74 gram-5.86 gram solution (Golytely) Allergy/AdvReac Type Severity Reaction Status Date / Time Sulfa (Sulfonamide Allergy Unknown Verified 07/31/25 14:19 Antibiotics) Family History Father CAD (coronary artery disease) Heart disease Hypertension CVA (cerebral vascular accident) Mother COPD (chronic obstructive pulmonary disease) Hypertension Heart disease Heart failure Surgical History History of cardiac catheterization History of colonoscopy History of foot surgery History of repair of left rotator cuff History of total left knee replacement (~2014) History of angioplasty of peripheral vessel (~2012) amputation left toe History of left heart catheterization (~01/20/14) Social History household members: none Smoking Status: Former smoker how long ago did patient quit smokin years ago alcohol intake: never substance use type: does not use caffeine: No ROS Constitutional Constitutional: Denies fatigue, fever(s), poor appetite, weight gain or weight loss Gastrointestinal Gastrointestinal: Denies belching, bloating, change in bowel habits, change in stool character, chewing difficulty, coffee ground emesis, constipation, cramping, diarrhea, dyspepsia, dysphagia, early satiety, excessive flatus, fecal incontinence, heartburn, hematemesis, hematochezia, hemorrhoids, loose stools, melena, nausea, odynophagia, rectal bleeding, tenesmus, vomiting or weight changes Vital Signs Vital Signs Vital Signs: 07/31/25 14:23 07/31/25 14:23 Temperature 98 F Temperature Source Temporal Pulse Rate 63 Respiratory Rate 16 Respiratory Pattern Normal Blood Pressure 162/68 H Blood Pressure Mean 99 Blood Pressure Source Monitor Blood Pressure Position Semi-Fowlers Blood Pressure Location Left Arm Pulse Ox 98 Oxygen Delivery Method Room Air Weight Weight: 166 lb 0.129 oz Body Mass Index (BMI) 26.8 Physical Exam Const alert, oriented x3, no apparent distress and healthy appearing General Appearance: cooperative GI normal to inspection, nondistended, normoactive bowel sounds, soft to palpation, non-tender and non-distended Percussion: normal to percussion Rectal Exam: deferred Results Lab / Micro Data Labs: Laboratory Results - last 24 hr 07/31/25 14:14: POC Glucose 61 L Assessment & Plan Assessment/Plan (1) Rectal bleeding: PLAN: . PLAN: Plan Contacted by [facility] bedside nurse this morning after patient had on episode of painless BRBPR with loose stool. Anticipated discharge for today at 1400. Patient is A&Ox3 and had a second episode of bleeding shortly after 9am. HGB 10.5 on 07/28/2025. I reviewed with Dr. Yanez and plan for discharge from TCU today at 1400. She will begin a clear liquid diet and will start bowel prep this evening at home. Plan to colonoscopy tomorrow +/- capsule endoscopy pending colonoscopy findings. I have reviewed with patient if she ?experiences increased rectal bleeding (especially large volume, frequent episodes, or passage of clots), severe abdominal pain, persistent lightheadedness, dizziness, or signs of dehydration such as dry mouth, reduced urine output, or confusion during bowel preparation she should come to the emergency department. Bowel prep sent to [facility] for patient to pick-up upon discharge today.
--- NOTE | 2025-07-31 15:48 | PCM.POSTANE2 ---
Anesthesia Postop Eval I Sum Anesthesia Postop Eval I Summary Anesthesia Postop Eval I Summary: Anesthesia Postop Eval I: Assessment Summary Airway patent Spontaneous unlabored respirations Mental status nausea Vomiting Anesthesia Postop Eval I: Fluid Summary Crystalloid volume administer (ml) Colloids volume administered ( ml) Blood Product volume administered (ml) Total IV fluid infused Anesthesia Postop Eval I: Summary Notes Anesthesia Complication Anesthesia Complication Comment: Post-operative progress note Anesthesia: Postop Eval II Evaluation Mental status: Awake Pain Level: 0 nausea: No Vomiting: No
--- NOTE | 2025-07-31 15:56 | OP.PROVAT_ITS ---
07/31/2025 Rishi Vasquez [address] [place] [address] Re : Colonoscopy procedure for Gely Fuller Dear Dr. Vasquez This procedure was performed on Thursday, July 31, 2025. My impressions and recommendations are as follows: Impressions : - Anal fissure found on perianal exam. - Anal fissure. Treated with argon plasma coagulation (APC). - Diverticulosis in the recto-sigmoid colon, in the sigmoid colon and in the descending colon. - Non-bleeding external and internal hemorrhoids. - No specimens collected. Recommendations : - Repeat colonoscopy in 5 years for surveillance. - Continue present medications. My findings are described in the full procedure note, which is enclosed. If I can be of further assistance, please feel free to contact me at . Sincerely, Ortega Yanez, 07/31/2025 3:55:55 PM This report has been signed electronically.
--- NOTE | 2025-07-31 15:56 | OP.COLON_ITS ---
Patient Name: Gely Fuller Procedure Date: 07/31/2025 2:27 PM Date of : 1950 Age: 75 Procedure: Colonoscopy Indications: Hematochezia Providers: Ortega Yanez DO Medicines: Monitored Anesthesia Care Patient Profile: This is a 75 year old female. Refer to note in patient chart for documentation of history and physical. Last Colonoscopy: within the past 3 months. Complications: No immediate complications. Procedure: Pre-Anesthesia Assessment: - Prior to the procedure, a History and Physical was performed, and patient medications and allergies were reviewed. The patient is competent. The risks and benefits of the procedure and the sedation options and risks were discussed with the patient. All questions were answered and informed consent was obtained. Patient identification and proposed procedure were verified by the physician in the pre-procedure area. Mental Status Examination: alert and oriented. Airway Examination: normal oropharyngeal airway and neck mobility. Respiratory Examination: clear to auscultation. CV Examination: normal. ASA Grade Assessment: II - A patient with mild systemic disease. After reviewing the risks and benefits, the patient was deemed in satisfactory condition to undergo the procedure. The anesthesia plan was to use monitored anesthesia care (MAC). Immediately prior to administration of medications, the patient was re-assessed for adequacy to receive sedatives. The heart rate, respiratory rate, oxygen saturations, blood pressure, adequacy of pulmonary ventilation, and response to care were monitored throughout the procedure. The physical status of the patient was re-assessed after the procedure. After I obtained informed consent, the scope was passed under direct vision. Throughout the procedure, the patient's blood pressure, pulse, and oxygen saturations were monitored continuously. The pediatric colonoscope was introduced through the anus and advanced to the terminal ileum. The colonoscopy was performed without difficulty. The patient tolerated the procedure well. The quality of the bowel preparation was adequate. The terminal ileum, ileocecal valve, appendiceal orifice, and rectum were photographed. Scope In: 3:16:01 PM Scope Withdrawal Time 0 hours 14 minutes 2 seconds Scope Out: 3:33:21 PM Total Procedure Duration Time 0 hours 17 minutes 20 seconds Findings: An anal fissure was found on perianal exam. An 8 mm anal fissure was found in the anal canal. Coagulation for bleeding prevention using argon plasma at 0.3 liters/minute and 50 murillo was successful. Estimated blood loss was minimal. Multiple small and large-mouthed diverticula were found in the recto-sigmoid colon, sigmoid colon and descending colon. Non-bleeding external and internal hemorrhoids were found during retroflexion. The hemorrhoids were Grade II (internal hemorrhoids that prolapse but reduce spontaneously). Impression: - Anal fissure found on perianal exam. - Anal fissure. Treated with argon plasma coagulation (APC). - Diverticulosis in the recto-sigmoid colon, in the sigmoid colon and in the descending colon. - Non-bleeding external and internal hemorrhoids. - No specimens collected. Recommendation: - Repeat colonoscopy in 5 years for surveillance. - Continue present medications. Procedure Code(s): --- Professional --- 35998, Colonoscopy, flexible; with control of bleeding, any method CPT copyright 2021 [employer]. All rights reserved. The codes documented in this report are preliminary and upon salt plant operator review may be revised to meet current compliance requirements. Ortega Yanez DO 07/31/2025 3:55:55 PM This report has been signed electronically. Number of Addenda: 0 Note Initiated On: 07/31/2025 2:27 PM
--- NOTE | 2025-07-31 15:59 | PCM.POST.ANE ---
Anesthesia: Postop Eval I Current Vital Signs Temperature: 97 F Pulse Rate: 99 Blood Pressure: 106/41 Respiratory Rate: 18 Pulse Ox: 65 Assessment Airway patent: Yes Spontaneous unlabored respirations: No nausea: No Vomiting: No Anesthesia Complication: No Fluid Hydration Crystalloid volume administer (ml): 1,000 Total IV fluid infused: 1,000 Progress Note Anesthesia document: Postop Eval 1 completed: Yes
== END 2025-07-31 16:40 | disposition home or self-care (01) ==
LOC: EN 13:48 → AC 13:49
PROVIDERS: PCP Student in an Organized Health Care Education/Training Program; Referring Provider Student in an Organized Health Care Education/Training Program; Visit Provider Internal Medicine Gastroenterology
PROC: 0DJD8ZZ Inspection of Lower Intestinal Tract, Via Natural or Artificial Opening Endoscopic (ICD-10-PCS; CPT 45378; principal; 2025-07-31 14:25)
DX: K62.5 Hemorrhage of anus and rectum (principal); E11.22 Type 2 diabetes mellitus with diabetic chronic kidney disease; E11.42 Type 2 diabetes mellitus with diabetic polyneuropathy; E11.51 Type 2 diabetes mellitus with diabetic peripheral angiopathy without gangrene; N18.30 Chronic kidney disease, stage 3 unspecified; I73.9 Peripheral vascular disease, unspecified; Z79.84 Long term (current) use of oral hypoglycemic drugs; Z87.891 Personal history of nicotine dependence; I12.9 Hypertensive chronic kidney disease with stage 1 through stage 4 chronic kidney disease, or unspecified chronic kidney disease; E78.00 Pure hypercholesterolemia, unspecified; D63.8 Anemia in other chronic diseases classified elsewhere; I25.10 Atherosclerotic heart disease of native coronary artery without angina pectoris; K60.2 Anal fissure, unspecified; K57.30 Diverticulosis of large intestine without perforation or abscess without bleeding; Z79.02 Long term (current) use of antithrombotics/antiplatelets; K64.1 Second degree hemorrhoids; K64.4 Residual hemorrhoidal skin tags; Z79.899 Other long term (current) drug therapy
CPT/HCPCS: 45382; 82962; C1889; J2405

== ENCOUNTER → 2025-08-11 | Outpatient (CLI) | payer MEDICARE, SELFPAY ==
[2025-08-14 16:09] LABS: Calprotectin, Stool 1060 ug/g (0-120)
== END | disposition home or self-care (01) ==
LOC: LABSPEC 13:43
PROVIDERS: PCP Student in an Organized Health Care Education/Training Program; Referring Provider Internal Medicine Gastroenterology; Visit Provider Internal Medicine Gastroenterology
DX: R19.7 Diarrhea, unspecified (principal); K58.9 Irritable bowel syndrome, unspecified; R19.5 Other fecal abnormalities
CPT/HCPCS: 83630; 83993

== ENCOUNTER → 2025-08-18 | Outpatient (CLI) | payer MEDICARE, SELFPAY | END | disposition home or self-care (01) | LOC: LABSPEC 18:09 | PROVIDERS: PCP Student in an Organized Health Care Education/Training Program; Visit Provider Student in an Organized Health Care Education/Training Program | DX: S91.302A Unspecified open wound, left foot, initial encounter (principal) | CPT/HCPCS: 87070; 87077; 87186; 87205 ==

== ENCOUNTER 2025-08-20 08:32 | Outpatient (RCR) | payer SELFPAY | END 2025-09-18 23:59 | LOC: CR 08:32 | PROVIDERS: PCP Student in an Organized Health Care Education/Training Program; Referring Provider Student in an Organized Health Care Education/Training Program; Visit Provider Student in an Organized Health Care Education/Training Program | DX: Z00.00 Encounter for general adult medical examination without abnormal findings (principal) ==

== ENCOUNTER → 2025-08-20 | Outpatient (CLI) | payer MEDICARE, SELFPAY ==
[2025-08-20 15:20] LABS: Hematocrit 34.4 % (37-47); Hemoglobin 11.3 g/dL (12.0-15.0); Immature Granulocytes Count 0.050 X10^3/uL (0.0-0.0); Mean Corp Hgb Conc 32.8 g/dL (32-36); Mean Corpuscular Volume 87.1 fL (81-99); Mean Platelet Vol. 11.9 fl (6.2-12.0); NRBC Flagged by Analyzer 0 % (0-5); Platelet Count 218 K/mm3 (150-450); RBC Distribution Width CV 15.1 % (11.6-14.6); RBC Distribution Width SD 48.3 fl (35.1-43.9); Red Blood Count 3.95 M/mm3 (4.2-5.4); White Blood Count 9.5 K/mm3 (4.4-11.0)
== END | disposition home or self-care (01) ==
LOC: LAB 13:39
PROVIDERS: PCP Student in an Organized Health Care Education/Training Program; Referring Provider Student in an Organized Health Care Education/Training Program; Visit Provider Student in an Organized Health Care Education/Training Program
DX: D64.9 Anemia, unspecified (principal)
CPT/HCPCS: 36415; 85025

== ENCOUNTER 2025-09-22 08:56 | Outpatient (RCR) | payer SELFPAY | END 2025-10-18 23:59 | LOC: CR 08:56 | PROVIDERS: PCP Student in an Organized Health Care Education/Training Program; Referring Provider Student in an Organized Health Care Education/Training Program; Visit Provider Student in an Organized Health Care Education/Training Program | DX: Z00.00 Encounter for general adult medical examination without abnormal findings (principal) ==

== ENCOUNTER 2025-10-20 08:39 | Outpatient (RCR) | payer SELFPAY | END 2025-11-18 23:59 | LOC: CR 08:39 | PROVIDERS: PCP Student in an Organized Health Care Education/Training Program; Referring Provider Student in an Organized Health Care Education/Training Program; Visit Provider Student in an Organized Health Care Education/Training Program | DX: S91.302A Unspecified open wound, left foot, initial encounter (principal) ==

== ENCOUNTER → 2025-10-20 | Outpatient (CLI) | payer MEDICARE, SELFPAY ==
[2025-10-20 12:07] LABS: Hematocrit 36.2 % (37-47); Hemoglobin 11.6 g/dL (12.0-15.0); Immature Granulocytes Count 0.010 X10^3/uL (0.0-0.0); Mean Corp Hgb Conc 32.0 g/dL (32-36); Mean Corpuscular Volume 88.1 fL (81-99); Mean Platelet Vol. 11.2 fl (6.2-12.0); NRBC Flagged by Analyzer 0 % (0-5); Platelet Count 166 K/mm3 (150-450); RBC Distribution Width CV 15.5 % (11.6-14.6); RBC Distribution Width SD 50.3 fl (35.1-43.9); Red Blood Count 4.11 M/mm3 (4.2-5.4); White Blood Count 5.9 K/mm3 (4.4-11.0)
[2025-10-20 12:53] LABS: Iron 39 ug/dL (50-170); Iron Binding Capacity,Unsat 176 ug/dL (228-428)
[2025-10-20 13:52] LABS: Iron Binding Capacity,Total 215 ug/dL (250-450)
== END | disposition home or self-care (01) ==
LOC: LAB 11:41
PROVIDERS: PCP Student in an Organized Health Care Education/Training Program; Referring Provider Student in an Organized Health Care Education/Training Program; Visit Provider Student in an Organized Health Care Education/Training Program
DX: K62.5 Hemorrhage of anus and rectum (principal); R19.5 Other fecal abnormalities; D64.9 Anemia, unspecified
CPT/HCPCS: 36415; 83540; 83550; 85025

== ENCOUNTER → 2025-11-05 | Outpatient (CLI) | payer MEDICARE, SELFPAY ==
[2025-11-07 01:07] LABS: Calprotectin, Stool 293 ug/g (0-120)
== END | disposition home or self-care (01) ==
LOC: LABSPEC 10:12
PROVIDERS: PCP Student in an Organized Health Care Education/Training Program; Visit Provider Student in an Organized Health Care Education/Training Program
DX: K62.5 Hemorrhage of anus and rectum (principal); R19.5 Other fecal abnormalities
CPT/HCPCS: 83993

== ENCOUNTER → 2025-11-10 | Outpatient (CLI) | payer MEDICARE, SELFPAY | END | disposition home or self-care (01) | PROVIDERS: PCP Student in an Organized Health Care Education/Training Program; Referring Provider Podiatrist Foot & Ankle Surgery; Visit Provider Podiatrist Foot & Ankle Surgery | DX: S91.002A Unspecified open wound, left ankle, initial encounter (principal) | CPT/HCPCS: 87070; 87075; 87077; 87186; 87205 ==